=== PATIENT | female | born 1980 | race Caucasian/White ===

== ENCOUNTER 2021-10-06 14:22 | Emergency (ER) | payer MEDICAID, SELFPAY ==
[2021-10-06 14:39] VITALS: BP 132/84; PULSE 91; RESP 18; TEMP 36.8; O2SAT 95; BMI 30.7
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
--- NOTE | 2021-10-06 14:50 | CRLHL7_ITS ---
For Patients: As a result of the Century Cures Act, medical imaging exams and procedure reports are released immediately into your electronic medical record. You may view this report before your referring provider. If you have questions, please contact your health care provider. INDICATION: Right leg pain and swelling. TECHNIQUE: Ultrasound venous duplex lower right extremity. Compression venous exam was performed using leigh-scale, color Doppler, and spectral Doppler imaging. COMPARISON: No prior. FINDINGS: The right-sided peroneal veins were incompletely compressible without definitive blood flow on color evaluation suggesting DVT. The right common femoral, femoral, deep femoral, popliteal and posterior tibial veins are patent without thrombus. The contralateral left common femoral vein is patent without thrombus. IMPRESSION: Incompletely compressible right-sided peroneal veins without definitive blood flow compatible with DVT. Findings discussed with Dr. Alvarenga on 10/06/2021 at 16:12 hours. Dictated by Moise Alvarado MD @ 10/06/2021 4:11:29 PM Dictated by: Moise Alvarado MD @ 10/06/2021 16:12:39 (Electronically Signed)
--- NOTE | 2021-10-06 14:50 | CRLHL7_ITS ---
For Patients: As a result of the Cures Act, medical imaging exams and procedure reports are released immediately into your electronic medical record. You may view this report before your referring provider. If you have questions, please contact your health care provider. INDICATION: Draining wound. History of infection. COMPARISON: MRI 29 Jun 2021 and plain film 31 July 2020. TECHNIQUE: Three views right ankle. IMPRESSION: Undulating widened indistinct talonavicular ankle joint. Patchy lucent foci of resorption and sclerosis in the plafond and talar head. Talar head looks flattened and there is flattened flaring of the tibial plafond. 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 Circumferential periarticular moderately prominent soft tissue swelling. No soft tissue air. No acute fracture or new bone lesion. Dictated by Santosh Donaldson MD @ 10/06/2021 3:37:31 PM (Electronically Signed)
[2021-10-06 15:40] LABS: Chloride* 105 mmol/L (96-114); Potassium* 3.6 mmol/L (3.6-5.1); Sodium* 143 mmol/L (135-149)
[2021-10-06 15:43] LABS: Creatinine* 0.5 mg/dL (0.5-1.5); Est. Creatinine Clearance* 138.61; Estimated Glomerular Filt Rate 121 ml/min
[2021-10-06 15:44] LABS: Blood Urea Nitrogen* 7 mg/dL (5-24); Carbon Dioxide* 29 mmol/L (20-32); Glucose* 116 mg/dL (60-115)
[2021-10-06 15:46] LABS: C Reactive Protein* 1.7 mg/dL (0.5-1.0)
[2021-10-06 16:05] LABS: Erythrocyte SedimentationRate* 25 mm/hr (2-20)
[2021-10-06 17:04] VITALS: BP 132/84; PULSE 91; RESP 18; TEMP 36.8
[2021-10-06] MEDS: APIXABAN 5 MG TABLET 10 MG PO (17:06)
== END 2021-10-06 17:15 | disposition home or self-care (01) ==
PROVIDERS: Emergency Provider Family Medicine; PCP Physician Assistant Medical
DX: I82.4Z1 Acute embolism and thrombosis of unspecified deep veins of right distal lower extremity (principal)
CPT/HCPCS: 36415; 73610; 80048; 85651; 86140; 87040; 93971; 99284; A9270

== ENCOUNTER 2021-10-16 21:21 | Emergency (ER) | payer MEDICAID, SELFPAY ==
[2021-10-16 21:36] VITALS: BP 144/79; PULSE 91; RESP 18; TEMP 36.3; O2SAT 97; BMI 32.6
--- NOTE | 2021-10-16 22:39 | ED_ITS ---
HPI - General Adult General Time Seen by Provider: 22:20 Date Seen: 10/16/21 Chief complaint: Unspecified Complaint, Adult Stated complaint: POST-SURGERY POSSIBLE INFECTION - BLOOD CLOT PROBS Time Seen by Provider: 10/16/21 22:04 Source: patient, RN notes reviewed and old records reviewed Mode of arrival: ambulatory Limitations: no limitations History of Present Illness HPI narrative: 41-year-old female with history of right DVT as well as cellulitis the of the right leg comes in today with swelling of the right leg. Patient has a complicated history of septic arthritis in the right ankle and recent diagnosis of DVT, on Eliquis. Comes in today because of increased swelling of the right leg as well as redness. She denies chest pain, shortness of breath, fevers, chills, nausea, or vomiting. No new injury and says she has been taking her medications as prescribed. Pain is worse with walking and better if she elevates the leg. Related Data Home Medications Medication Instructions Recorded Confirmed acetaminophen 325 mg tablet 650 mg PO TID PRN 09/12/21 10/16/21 aspirin 81 mg tablet,delayed 162 mg PO QDAY 09/12/21 10/16/21 release (Adult Aspirin Regimen) buprenorphine HCl 8 mg sublingual 8 mg sublingual TID 09/12/21 10/16/21 tablet cholecalciferol (vitamin D3) 50 50 mcg PO QDAY 09/12/21 10/16/21 mcg (2,000 unit) tablet clindamycin phosphate 1 % lotion 1 applic topical BID 09/12/21 10/16/21 diclofenac sodium 1 % topical gel 2 g topical BID 09/12/21 10/08/21 (Arthritis Pain (diclofenac)) doxycycline hyclate 100 mg capsule 100 mg PO BID 09/12/21 10/08/21 fexofenadine 180 mg tablet 180 mg PO Q24H PRN 09/12/21 10/08/21 folic acid 1 mg tablet 1 mg PO QDAY 09/12/21 10/16/21 gabapentin 300 mg capsule 300 mg PO TID 09/12/21 10/08/21 hydroxyzine HCl 25 mg tablet 25 mg PO .HS 09/12/21 10/08/21 ibuprofen 200 mg tablet 200 mg PO Q6H PRN 09/12/21 10/08/21 lactulose 20 gram oral packet 20 g PO BID 09/12/21 10/08/21 levothyroxine 125 mcg capsule 125 mcg PO QDAY 09/12/21 10/16/21 methocarbamol 750 mg tablet 750 mg PO TID 09/12/21 10/16/21 miconazole nitrate 2 % topical 1 applic topical BID 09/12/21 10/16/21 powder nicotine 14 mg/24 hr daily 1 patch transdermal Q24H 09/12/21 10/16/21 transdermal patch sennosides 8.6 mg-docusate sodium 2 tab-cap PO BID PRN 09/12/21 10/16/21 50 mg tablet (Senna with Docusate Sodium) thiamine HCl (vitamin B1) 100 mg 100 mg PO QDAY 09/12/21 10/08/21 tablet venlafaxine 75 mg capsule,extended 75 mg PO QAM 09/12/21 10/16/21 release 24 hr Previous Rx's Medication Instructions Recorded apixaban 5 mg tablet (Eliquis) 5 mg PO BID #60 tabs 10/06/21 ondansetron 4 mg disintegrating 4 mg PO BID PRN nausea and 10/11/21 tablet vomiting #20 tabs Allergies Allergy/AdvReac Type Severity Reaction Status Date / Time No Known Allergies Allergy Verified 10/16/21 21:42 Review of Systems Status of ROS: Reports: 10 or more systems reviewed and unremarkable except as noted in History and below PFSH PFS Surgical History History of delivery History of gynecologic surgery History of thoracic surgery Status post hysterectomy Family History Other Depression Thyroid disease Social History Narrative: alcohol abuse cigarette smoker Smoking Status: Current every day smoker Non-prescribed substance use: denies use Exam Narrative: Exam Narrative: General: Well-developed and well-nourished, no acute distress Head: Atraumatic and normocephalic Eyes: Pupils are equal reactive, extraocular motions intact, conjunctiva clear ENT: External nose and ears are normal, posterior pharynx without erythema or exudate Neck: No midline cervical tenderness, full spontaneous range of motion the neck, trachea midline, no adenopathy Heart: Regular rate and rhythm no murmurs or thrills Lungs: Clear to auscultation bilaterally without wheezes or crackles Abdomen: Soft, nontender, nondistended with active bowel sounds Musculoskeletal: Right lower leg with swelling and erythema. Compartments are soft, no pain out of proportion or pain with active flexion or extension of the ankle. Incision on the right lateral hindfoot cleaned and dry, some adherent green discoloration but no odor or redness. Neurologic: Awake, alert, and oriented x3, no gross focal neurologic deficits, cranial nerves intact as tested Psych: Mood and affect are appropriate Skin: No rashes Const: Vital Signs, click to edit/add: Vital Signs - 24 hr 10/16/21 21:36 Temperature 97.4 F L Pulse Rate [Left P ulse Oximeter] 91 Respiratory Rate 18 Blood Pressure [Ri ght Upper Arm] 144/79 H Pulse Oximetry 97 Oxygen Delivery Me thod Room Air Course Course Hospital Course: Patient seen and examined, prior records are reviewed. Differential diagnosis includes but not limited to DVT, cellulitis, abscess, septic arthritis, compartment syndrome. Patient presents with pain and swelling of the right leg. On exam, no pain with passive movement of the ankle, diffuse redness and it edema of the right leg but compartments are soft. Dressing on the right is removed, no purulent drainage and only minimal swelling. There is limited greenish discoloration to the skin on the inferior edge of the wound but no odor purulent drainage. Labs are ordered along with right lower extremity ultrasound to evaluate for progression of known DVT. Reevaluation(s) Reevaluation #1: CBC demonstrates a pancytopenia, patient has had thrombocytopenia in the past. CRP is less than 0.5 which would be less consistent with infectious etiology. Note that in June when patient had an abscess her CRP was significantly elevated. Ultrasound is pending. If this is negative for shows stable DVT, patient can be discharged with continued outpatient follow-up. She is quite concerned about infection and so consider short course of oral antibiotic with MRSA coverage. Time: 23:57 Reevaluation #2: Patient wants to go home. She is not yet her ultrasound but does not want to stay for that. She is already on blood thinners, and no evidence for severe infection based on exam and labs today. Time: 23:57 Vital Signs Vital signs: Initial Vital Signs Temperature 97.4 F L 10/16/21 21:36 Temperature Source Temporal Artery Scan 10/16/21 21:36 Pulse Rate 91 10/16/21 21:36 Respiratory Rate 18 10/16/21 21:36 Blood Pressure 144/79 H 10/16/21 21:36 Blood Pressure Mean 100 10/16/21 21:36 Blood Pressure Position Sitting 10/16/21 21:36 Pulse Oximetry 97 10/16/21 21:36 Oxygen Delivery Method 10/16/21 21:36 Vital Signs Temperature 97.4 F L 10/16/21 21:36 Pulse Rate 91 10/16/21 21:36 Respiratory Rate 18 10/16/21 21:36 Blood Pressure 144/79 H 10/16/21 21:36 Pulse Oximetry 97 10/16/21 21:36 Oxygen Delivery Method 10/16/21 21:36 Temperature 97.4 F L 10/16/21 21:36 Pulse Rate 91 10/16/21 21:36 Respiratory Rate 18 10/16/21 21:36 Blood Pressure 144/79 H 10/16/21 21:36 Pulse Oximetry 97 10/16/21 21:36 Oxygen Delivery Method 10/16/21 21:36 Medical Decision Making Medical Records Medical records reviewed: Yes I reviewed the patient's medical records Lab Data Lab results reviewed: Yes I reviewed the patient's lab results Labs: Lab Results 10/16/21 10/16/21 Range/Units 23:15 23:15 WBC 2.97 L (4.50-11.00) K/uL RBC 3.88 L (4.00-5.20) m/uL Hgb 10.5 L (12.0-16.0) gm/dL Hct 33.0 (33.0-51.0) % MCV 85 (80-100) fL MCH 27 (26-34) pg MCHC 32 (32-36) gm/dL RDW Coeff of Gamal 15.4 (11.5-15.5) % Plt Count 47 L* (140-440) K/uL Neut % (Auto) 25.6 L (42.0-72.0) % Lymph % (Auto) 65.0 H (20-44) % [place] % (Auto) 7.1 (0.0-11.0) % Eos % (Auto) 2.0 (0.0-7.0) % Baso % (Auto) 0.3 (0.0-3.0) % Neut # (Auto) 0.80 L (1.7-7.0) K/uL Lymph # (Auto) 1.90 (0.90-2.90) K/uL [place] # (Auto) 0.20 (0.00-0.90) K/UL Eos # (Auto) 0.10 (0.00-0.50) K/uL Baso # (Auto) 0.00 (0.00-0.30) K/uL Abs Immat Gran (auto) 0.00 (0.00-0.30) K/uL Sodium 147 (135-149) mmol/L Potassium 3.8 (3.6-5.1) mmol/L Chloride 106 (96-114) mmol/L Carbon Dioxide 30 (20-32) mmol/L BUN 6 (5-24) mg/dL Creatinine 0.5 (0.5-1.5) mg/dL Estimated Creat Clear 138.61 Estimated GFR 121 ml/min Glucose 100 (60-115) mg/dL Calcium 8.6 (8.4-10.6) mg/dL C-Reactive Protein < 0.5 L (0.5-1.0) mg/dL Discharge Plan Discharge Clinical Impression: H/O deep venous thrombosis, Localized swelling of right lower leg, Anticoagulated by anticoagulation treatment Patient Disposition: Left Against Medical Advice Condition: Stable Instructions: Deep Vein Thrombosis (ED), Blood Thinners (ED) Additional Instructions: Elevate the leg as much as you are able. Continue dressing changes. Follow-up with your primary care doctor Orthopedic surgery this week. Continue your blood thinner. Activity Level: Activity as Tolerated Discharge Diet: Regular Prescriptions: No Action acetaminophen 325 mg tablet 650 mg PO TID PRN aspirin [Adult Aspirin Regimen] 81 mg tablet,delayed release (DR/EC) 162 mg PO QDAY Hold Instructions: Doctor's Order buprenorphine HCl 8 mg tablet, sublingual 8 mg sublingual TID cholecalciferol (vitamin D3) 50 mcg (2,000 unit) tablet 50 mcg PO QDAY clindamycin phosphate 1 % lotion 1 applic topical BID diclofenac sodium [Arthritis Pain (diclofenac)] 1 % gel 2 g topical BID Rx Instructions: apply to single elbow, wrist or hand; for hand includes palm/fingers/back of hand doxycycline hyclate 100 mg capsule 100 mg PO BID fexofenadine 180 mg tablet 180 mg PO Q24H PRN folic acid 1 mg tablet 1 mg PO QDAY gabapentin 300 mg capsule 300 mg PO TID hydroxyzine HCl 25 mg tablet 25 mg PO .HS ibuprofen 200 mg tablet 200 mg PO Q6H PRN lactulose 20 gram packet 20 g PO BID levothyroxine 125 mcg capsule 125 mcg PO QDAY methocarbamol 750 mg tablet 750 mg PO TID miconazole nitrate 2 % powder 1 applic topical BID nicotine 14 mg/24 hr patch 24 hour 1 patch transdermal Q24H sennosides-docusate sodium [Senna with Docusate Sodium] 8.6-50 mg tablet 2 tab-cap PO BID PRN thiamine HCl (vitamin B1) 100 mg tablet 100 mg PO QDAY venlafaxine 75 mg capsule,extended release 24hr 75 mg PO QAM Eliquis 5 mg tablet 5 mg PO BID Qty: 60 2RF Rx Instructions: Take 10mg twice daily for 7 days, then go to 5mg twice daily after that ondansetron 4 mg tablet,disintegrating 4 mg PO BID PRN (Reason: nausea and vomiting) Qty: 20 0RF Follow Up/Referrals: Yenifer Pickens PA-C [Primary Care Provider] - Stand Alone [facility] Inst[facility]
--- NOTE | 2021-10-16 22:42 | CRLHL7_ITS ---
For Patients: As a result of the Century Cures Act, medical imaging exams and procedure reports are released immediately into your electronic medical record. You may view this report before your referring provider. If you have questions, please contact your health care provider. INDICATION: Known right peroneal DVT diagnosed October 06, 2021, increased leg swelling. TECHNIQUE: Ultrasound venous duplex lower right extremity. Compression venous exam was performed using leigh-scale, color Doppler, and spectral Doppler imaging. COMPARISON: October 06, 2021. FINDINGS: Sonographic imaging demonstrates the right common femoral, deep femoral, superficial femoral, popliteal, posterior tibial and greater saphenous and the contralateral left common femoral veins to be fully compressible with normal color Doppler blood flow. There is suboptimal imaging of the peroneal veins due to lower extremity edema. Minimal flow is seen within the peroneal veins. IMPRESSION: Suboptimal imaging of the peroneal veins due to lower extremity edema. Minimal flow is seen within the peroneal veins, suggesting persistent DVT. Remainder of the right lower extremity veins are patent. Dictated by Juanis Sen MD @ 10/17/2021 12:50:09 AM (Electronically Signed)
[2021-10-16 23:23] LABS: Basophils Percent Auto 0.3 % (0.0-3.0); Hemoglobin* 10.5 gm/dL (12.0-16.0); Mean Corpuscular HGB Conc 32 gm/dL (32-36); Mean Corpuscular Hemoglobin 27 pg (26-34); Mean Corpuscular Volume 85 fL (80-100); Monocytes Percent Auto 7.1 % (0.0-11.0); Neutrophils Percent Auto 25.6 % (42.0-72.0); RDW Coefficient of Variation % 15.4 % (11.5-15.5); Red Blood Count 3.88 m/uL (4.00-5.20); White Blood Count* 2.97 K/uL (4.50-11.00)
[2021-10-16 23:26] LABS: Platelet Count* 47 K/uL (140-440); Slide Review Reflex No
--- NOTE | 2021-10-16 23:29 | ED.NURSE ---
Critical lab result: Platelets 47, handed to at 1622
[2021-10-16 23:34] LABS: Chloride* 106 mmol/L (96-114); Potassium* 3.8 mmol/L (3.6-5.1); Sodium* 147 mmol/L (135-149)
[2021-10-16 23:37] LABS: Creatinine* 0.5 mg/dL (0.5-1.5); Est. Creatinine Clearance* 138.61; Estimated Glomerular Filt Rate 121 ml/min
[2021-10-16 23:38] LABS: Blood Urea Nitrogen* 6 mg/dL (5-24); Calcium* 8.6 mg/dL (8.4-10.6); Carbon Dioxide* 30 mmol/L (20-32); Glucose* 100 mg/dL (60-115)
[2021-10-16 23:42] LABS: C Reactive Protein* < 0.5 mg/dL (0.5-1.0)
--- NOTE | 2021-10-17 00:34 | ED.NURSE ---
Patient came out of rum and stated she did not want to wait any longer as her mother and another of her children were in the car waiting. Explained that we needed to completed ultrasound and then wait for results to really know what is going on. She states she will follow up with regular doctor. Signed AMA.
--- NOTE | 2021-10-17 15:58 | ED.NURSE ---
Pt called stating that she left the ER without the results of of her US yesterday because I was waiting for over 5 hours, i could not wait anymore advised pt to to continue to elevate extremities, continue with blood thinners and follow up with primary per d/c packet. Pt sent to med rec to obtain US results.
== END 2021-10-17 00:40 | disposition left against medical advice (07) ==
PROVIDERS: Emergency Provider Family Medicine; PCP Physician Assistant Medical
DX: R22.41 Localized swelling, mass and lump, right lower limb (principal); Z79.01 Long term (current) use of anticoagulants; Z53.29 Procedure and treatment not carried out because of patient's decision for other reasons
CPT/HCPCS: 36415; 80048; 85025; 86140; 93971; 99284

== ENCOUNTER 2021-10-19 17:07 | Emergency (ER) | payer MEDICAID, SELFPAY ==
[2021-10-19 17:40] VITALS: BP 130/77; PULSE 88; RESP 14; TEMP 36.7; O2SAT 95; BMI 32.3
--- NOTE | 2021-10-19 20:49 | ED_ITS ---
HPI - General Adult General Time Seen by Provider: 20:49 Date Seen: 10/19/21 Chief complaint: Extremity Pain/Injury, Lower Stated complaint: Traveling Blood Clot Time Seen by Provider: 10/19/21 20:41 Source: patient Mode of arrival: ambulatory Limitations: no limitations History of Present Illness HPI narrative: 41-year-old female who concerns about her leg. Complex recent medical history as documented below. She comes in today with pain of the right distal lateral thigh in continued swelling of the right leg. She is concerned about migration of her previously diagnosed DVT. She continues anticoagulation. Pain in the distal thigh his worse with walking and better at rest but constant. She has not noticed increased swelling of the leg, no fever chills, no drainage from her ankle wound. Review of chart demonstrates the patient was admitted in June with infection of the right foot and ankle. She went to the OR June 30 and had says drained, further drainage and debridement on July 02 along with removal of calcaneal hardware. She then had another debridement done on July 04. She subsequently was transferred to the [facility] on July 06 for specialized foot and ankle care, and plastics referral due peroneal tendon exposure. Review of discharge summary from [facility] demonstrates the patient had further ankle debridement on July 07 and was found to have right ankle osteomyelitis but no septic arthritis. On long-term antibiotics but has been off those for a while. She did have a skin graft on August 15, 2021. Related Data Home Medications Medication Instructions Recorded Confirmed acetaminophen 325 mg tablet 650 mg PO TID PRN 09/12/21 10/16/21 aspirin 81 mg tablet,delayed 162 mg PO QDAY 09/12/21 10/16/21 release (Adult Aspirin Regimen) buprenorphine HCl 8 mg sublingual 8 mg sublingual TID 09/12/21 10/16/21 tablet cholecalciferol (vitamin D3) 50 50 mcg PO QDAY 09/12/21 10/16/21 mcg (2,000 unit) tablet clindamycin phosphate 1 % lotion 1 applic topical BID 09/12/21 10/16/21 diclofenac sodium 1 % topical gel 2 g topical BID 09/12/21 10/08/21 (Arthritis Pain (diclofenac)) doxycycline hyclate 100 mg capsule 100 mg PO BID 09/12/21 10/08/21 fexofenadine 180 mg tablet 180 mg PO Q24H PRN 09/12/21 10/08/21 folic acid 1 mg tablet 1 mg PO QDAY 09/12/21 10/16/21 gabapentin 300 mg capsule 300 mg PO TID 09/12/21 10/08/21 hydroxyzine HCl 25 mg tablet 25 mg PO .HS 09/12/21 10/08/21 ibuprofen 200 mg tablet 200 mg PO Q6H PRN 09/12/21 10/08/21 lactulose 20 gram oral packet 20 g PO BID 09/12/21 10/08/21 levothyroxine 125 mcg capsule 125 mcg PO QDAY 09/12/21 10/16/21 methocarbamol 750 mg tablet 750 mg PO TID 09/12/21 10/16/21 miconazole nitrate 2 % topical 1 applic topical BID 09/12/21 10/16/21 powder nicotine 14 mg/24 hr daily 1 patch transdermal Q24H 09/12/21 10/16/21 transdermal patch sennosides 8.6 mg-docusate sodium 2 tab-cap PO BID PRN 09/12/21 10/16/21 50 mg tablet (Senna with Docusate Sodium) thiamine HCl (vitamin B1) 100 mg 100 mg PO QDAY 09/12/21 10/08/21 tablet venlafaxine 75 mg capsule,extended 75 mg PO QAM 09/12/21 10/16/21 release 24 hr Previous Rx's Medication Instructions Recorded apixaban 5 mg tablet (Eliquis) 5 mg PO BID #60 tabs 10/06/21 ondansetron 4 mg disintegrating 4 mg PO BID PRN nausea and 10/11/21 tablet vomiting #20 tabs Allergies Allergy/AdvReac Type Severity Reaction Status Date / Time No Known Allergies Allergy Verified 10/16/21 21:42 Review of Systems Status of ROS: Reports: 10 or more systems reviewed and unremarkable except as noted in History and below PFSH PFS Surgical History History of delivery History of gynecologic surgery History of thoracic surgery Status post hysterectomy Family History Other Depression Thyroid disease Social History Narrative: alcohol abuse cigarette smoker Smoking Status: Current every day smoker What tobacco products do you use: cigarettes Non-prescribed substance use: denies use Non-prescribed substance use details: 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 Exam Narrative: Exam Narrative: General: Well-developed and well-nourished, no acute distress Head: Atraumatic and normocephalic Eyes: Pupils are equal reactive, extraocular motions intact, conjunctiva clear ENT: External nose and ears are normal, posterior pharynx without erythema or exudate Neck: No midline cervical tenderness, full spontaneous range of motion the neck, trachea midline, no adenopathy Heart: Regular rate and rhythm no murmurs or thrills Lungs: Clear to auscultation bilaterally without wheezes or crackles Abdomen: Soft, nontender, nondistended with active bowel sounds Musculoskeletal: Firm edema of the right lower leg, no pain with passive flexion or extension of the ankle, distal pulses and sensation are intact. Tenderness of the right lower leg along the IT band with no overlying bruising or erythema. No knee effusion or pain with knee flexion extension. Redness, tenderness, of the medial thigh along the course of the great vessels. Right lateral ankle good granulation, discoloration inferiorly similar read to when I saw the patient at likely due to staining from the iodoform gauze that she has on the wound. Neurologic: Awake, alert, and oriented x3, no gross focal neurologic deficits, cranial nerves intact as tested Psych: Mood and affect are appropriate Skin: No rashes Const: Vital Signs, click to edit/add: Vital Signs - 24 hr 10/19/21 17:40 Temperature 98.1 F Pulse Rate [Pulse Oximeter] 88 Respiratory Rate 14 Blood Pressure [Ri ght Upper Arm] 130/77 Pulse Oximetry 95 Oxygen Delivery Me thod Room Air Course Course Hospital Course: Patient seen and examined, prior records are reviewed. Differential diagnosis includes but not limited to strain, sprain, DVT SVT, cellulitis, compartment syndrome I infection. Patient with cough goal history including multiple debridements of the right ankle and foot as well as skin graft to the right ankle and more recent diagnosis of DVT. She is concerned about some pain in the right lateral distal thigh. On further interview, she says she was feeling pretty good 2 days ago and walked a lot started having pain then. Tenderness along the ITB band sore musculoskeletal pain. Bedside ultrasound performed. The vessels of the thigh are compressible and with flow. Muscles of the calf are compressible to the mid calf to which stool is not compressible still has small amount of flow. There is extensive soft tissue edema on ultrasound and on exam. Dorsalis pedis and posterior tibialis pulses are intact, no pain with passive movement, sensation intact, compartment syndrome clinically unlikely. Current medications. Consider compression stocking for her right leg edema. Vital Signs Vital signs: Initial Vital Signs Temperature 98.1 F 10/19/21 17:40 Temperature Source Temporal Artery Scan 10/19/21 17:40 Pulse Rate 88 10/19/21 17:40 Pulse Rhythm 10/19/21 17:40 Respiratory Rate 14 10/19/21 17:40 Blood Pressure 130/77 10/19/21 17:40 Blood Pressure Mean 94 10/19/21 17:40 Blood Pressure Position Sitting 10/19/21 17:40 Pulse Oximetry 95 10/19/21 17:40 Oxygen Delivery Method 10/19/21 17:40 Vital Signs Temperature 98.1 F 10/19/21 17:40 Pulse Rate 88 10/19/21 17:40 Respiratory Rate 14 10/19/21 17:40 Blood Pressure 130/77 10/19/21 17:40 Pulse Oximetry 95 10/19/21 17:40 Oxygen Delivery Method 10/19/21 17:40 Temperature 98.1 F 10/19/21 17:40 Pulse Rate 88 10/19/21 17:40 Respiratory Rate 14 10/19/21 17:40 Blood Pressure 130/77 10/19/21 17:40 Pulse Oximetry 95 10/19/21 17:40 Oxygen Delivery Method 10/19/21 17:40 Medical Decision Making Medical Records Medical records reviewed: Yes I reviewed the patient's medical records Lab Data Lab results reviewed: Yes I reviewed the patient's lab results Discharge Plan Discharge Prescriptions: No Action acetaminophen 325 mg tablet 650 mg PO TID PRN aspirin [Adult Aspirin Regimen] 81 mg tablet,delayed release (DR/EC) 162 mg PO QDAY Hold Instructions: Doctor's Order buprenorphine HCl 8 mg tablet, sublingual 8 mg sublingual TID cholecalciferol (vitamin D3) 50 mcg (2,000 unit) tablet 50 mcg PO QDAY clindamycin phosphate 1 % lotion 1 applic topical BID diclofenac sodium [Arthritis Pain (diclofenac)] 1 % gel 2 g topical BID Rx Instructions: apply to single elbow, wrist or hand; for hand includes palm/fingers/back of hand doxycycline hyclate 100 mg capsule 100 mg PO BID fexofenadine 180 mg tablet 180 mg PO Q24H PRN folic acid 1 mg tablet 1 mg PO QDAY gabapentin 300 mg capsule 300 mg PO TID hydroxyzine HCl 25 mg tablet 25 mg PO .HS ibuprofen 200 mg tablet 200 mg PO Q6H PRN lactulose 20 gram packet 20 g PO BID levothyroxine 125 mcg capsule 125 mcg PO QDAY methocarbamol 750 mg tablet 750 mg PO TID miconazole nitrate 2 % powder 1 applic topical BID nicotine 14 mg/24 hr patch 24 hour 1 patch transdermal Q24H sennosides-docusate sodium [Senna with Docusate Sodium] 8.6-50 mg tablet 2 tab-cap PO BID PRN thiamine HCl (vitamin B1) 100 mg tablet 100 mg PO QDAY venlafaxine 75 mg capsule,extended release 24hr 75 mg PO QAM Eliquis 5 mg tablet 5 mg PO BID Qty: 60 2RF Rx Instructions: Take 10mg twice daily for 7 days, then go to 5mg twice daily after that ondansetron 4 mg tablet,disintegrating 4 mg PO BID PRN (Reason: nausea and vomiting) Qty: 20 0RF Follow Up/Referrals: Yenifer Pickens PA-C [Primary Care Provider] -
[2021-10-19 22:05] VITALS: BP 135/72; PULSE 76; RESP 18; O2SAT 96
== END 2021-10-19 22:24 | disposition home or self-care (01) ==
LOC: ED 21:45
PROVIDERS: Emergency Provider Family Medicine; PCP Physician Assistant Medical
DX: R60.0 Localized edema (principal)
CPT/HCPCS: 99283; 99284

== ENCOUNTER 2021-11-09 21:26 | Emergency (ER) | payer MEDICAID, SELFPAY ==
[2021-11-09 21:35] VITALS: BP 125/66; PULSE 97; RESP 16; TEMP 36.1; O2SAT 100
--- NOTE | 2021-11-09 22:16 | ED.WEAKNESS ---
HPI - Weakness General Chief complaint: Weakness Stated complaint: Weakness Time Seen by Provider: 11/09/21 21:48 History of Present Illness HPI Narrative: 41-year-old woman presenting with her mom to the emergency department with complaint of weakness. Has been through quite a bit the last number of months. Had an infection in the right foot and subsequent DVT. Required multiple surgeries. Sepsis was in the mix as well. Continues to take Eliquis. Initially is telling me that her right leg has been tense over the last week although mom acknowledges this this is been during and since diagnosis of DVT for least a month. Has not had any fever. Weakness more over the last 3 days. She just feeling too weak today to change her dressing on her foot. There is since she has been ill she feels like when she gets up her arms are particularly weak and tired. Does have a history of rather significant alcoholism. Reports a pt of vodka today. Earlier in the week a 750 mL bottle daily. Has continued to drink outside of hospitalizations. Has numerous detox placements. Apparently primary care is assisting her in ?tapering down ?. This includes Vistaril and a couple other unspecified medications. I do see buprenorphine on medication list, chlordiazepoxide, hydroxyzine, gabapentin. She is not feeling nauseated although she says that when she comes down would start to be nauseated. She has not been vomiting. Has no abdominal pain. Does not describe any cough or cold symptoms. She notes how this morning her heart was really racing and she drink to settle that down. She tells me how she was hearing it in her ears. She has been having soreness in her throat sometimes will feel in her ears. She notes a history of cardiomyopathy. Denies hematemesis. Denies melena. Has had a little bit of blood upon wiping after hard stool last week. Incidentally notes anxiety and nausea with alcohol withdrawals. No history of seizures/No DTs/hallucinations. The following extracted from recent documentation [facility] Active Problems Acute deep vein thrombosis (DVT) of right lower extremity (Acute) I82.401 Alcohol abuse (Acute) F10.10 Hypothyroidism (Acute) E03.9 Depression with anxiety (Acute) F41.8 Opioid dependence (Acute) F11.20 Periodontal disease (Acute) K05.6 Hepatitis C (Acute) B19.20 diagnosed at [facility]- was seen by GI but has not started treatment Abscess of ankle (Acute) L02.419 deep abcess ankle, right MRSA (methicillin resistant Staphylococcus aureus) (Acute) A49.02 08/28/09 right axilla & chest Surgical History History of delivery History of gynecologic surgery History of thoracic surgery Status post hysterectomy Recent surgical past medical Review of chart demonstrates the patient was admitted in June with infection of the right foot and ankle.? She went to the OR June 30 and had says drained, further drainage and debridement on July 02 along with removal of calcaneal hardware.? She then had another debridement done on July 04.? She subsequently was transferred to the [facility] on July 06 for specialized foot and ankle care, and plastics referral due peroneal tendon exposure.? Review of discharge summary from [facility] demonstrates the patient had further ankle debridement on July 07 and was found to have right ankle osteomyelitis but no septic arthritis.? On long-term antibiotics but has been off those for a while.? She did have a skin graft on August 15, 2021. Related Data Home Medications Medication Instructions Recorded Confirmed acetaminophen 325 mg tablet 650 mg PO TID PRN 09/12/21 10/16/21 aspirin 81 mg tablet,delayed 162 mg PO QDAY 09/12/21 10/16/21 release (Adult Aspirin Regimen) buprenorphine HCl 8 mg sublingual 8 mg sublingual TID 09/12/21 10/16/21 tablet cholecalciferol (vitamin D3) 50 50 mcg PO QDAY 09/12/21 10/16/21 mcg (2,000 unit) tablet clindamycin phosphate 1 % lotion 1 applic topical BID 09/12/21 10/16/21 diclofenac sodium 1 % topical gel 2 g topical BID 09/12/21 10/08/21 (Arthritis Pain (diclofenac)) fexofenadine 180 mg tablet 180 mg PO Q24H PRN 09/12/21 10/08/21 folic acid 1 mg tablet 1 mg PO QDAY 09/12/21 10/16/21 gabapentin 300 mg capsule 300 mg PO TID 09/12/21 10/08/21 hydroxyzine HCl 25 mg tablet 25 mg PO .HS 09/12/21 10/08/21 ibuprofen 200 mg tablet 200 mg PO Q6H PRN 09/12/21 10/08/21 lactulose 20 gram oral packet 20 g PO BID 09/12/21 10/08/21 levothyroxine 125 mcg capsule 125 mcg PO QDAY 09/12/21 10/16/21 methocarbamol 750 mg tablet 750 mg PO TID 09/12/21 10/16/21 miconazole nitrate 2 % topical 1 applic topical BID 09/12/21 10/16/21 powder nicotine 14 mg/24 hr daily 1 patch transdermal Q24H 09/12/21 10/16/21 transdermal patch sennosides 8.6 mg-docusate sodium 2 tab-cap PO BID PRN 09/12/21 10/16/21 50 mg tablet (Senna with Docusate Sodium) thiamine HCl (vitamin B1) 100 mg 100 mg PO QDAY 09/12/21 10/08/21 tablet venlafaxine 75 mg capsule,extended 75 mg PO QAM 09/12/21 10/16/21 release 24 hr Previous Rx's Medication Instructions Recorded apixaban 5 mg tablet (Eliquis) 5 mg PO BID #60 tabs 10/06/21 acetaminophen 650 mg 1,300 mg PO Q8H PRN fever or pain 11/01/21 tablet,extended release (Pain #100 tabs Relief (acetaminophen)) chlordiazepoxide HCl 25 mg capsule 25 mg PO ONCE #13 caps 11/01/21 clomipramine 25 mg capsule 25 mg PO ONCE 14 days #14 caps 11/01/21 mupirocin 2 % topical ointment 1 applic topical BID PRN scabs #22 11/01/21 grams ondansetron 4 mg disintegrating 4 mg PO BID PRN nausea and 11/01/21 tablet vomiting #20 tabs Allergies Allergy/AdvReac Type Severity Reaction Status Date / Time No Known Allergies Allergy Verified 11/01/21 18:14 Review of Systems Status of ROS: Reports: 6 or more systems reviewed and unremarkable except as noted in History and below PFSH PFS Surgical History History of delivery History of gynecologic surgery History of thoracic surgery Status post hysterectomy Family History Other Depression Thyroid disease Social History Narrative: alcohol abuse cigarette smoker Smoking Status: Current some day smoker What tobacco products do you use: cigarettes Do you use any of these nicotine containing products: None Second hand tobacco smoke exposure: No How often do you have a drink containing alcohol: 2-3 times a week AUDIT-C Alcohol total score: 3 Non-prescribed substance use: denies use Non-prescribed substance use details: Clean since 2009: heroin service: No Exam Narrative: Exam Narrative: Fully oriented. Very tired. Seems to have some cognitive difficulties as if encephalopathic. Bordering on tremulous. Cranial nerves 2-12 are intact. Moving all extremities without difficulty. Excoriations over face consistent with picking. Picking on back as well. Generally skin looks pale. Oropharynx partially edentulous, dentition decay. She is embarrassed and apologize for the state of her mouth. No swelling or erythema appreciated. No cervical lymphadenopathy. Lungs are clear. Breathing easily. Cardiovascular with elevated pulse, regular rate and rhythm. Distant Abdomen is soft and nontender. Small areas of yellowish bruising scattered over her abdomen. No telangiectasias Right lower extremity has some tattoos. No inflammatory changes. Rather tense compared to the left. Appears well perfused peripherally though. She is wearing a Cam walker that I removed to assess as above. Lateral heel area has a healing wound. [place]. I do not see significant rubor. There is no calor. No purulence. Stephani was worried about odor; I do not appreciate that. There is a little greenish staining on bandage. This looks to have been noted on prior evaluations. Const: Vital Signs, click to edit/add: Vital Signs - 24 hr 11/09/21 21:35 11/10/21 01:26 11/10/21 01:45 Temperature 97.0 F L 98.1 F 97.1 F L Pulse Rate 91 Pulse Rate [Left P ulse Oximeter] 97 Respiratory Rate 16 18 16 Blood Pressure 123/63 93/59 L Blood Pressure [Ri ght Upper Arm] 125/66 Pulse Oximetry 100 Oxygen Delivery Me thod Room Air 11/10/21 01:57 11/10/21 02:30 11/10/21 02:05 Temperature 98.0 F 98.0 F Pulse Rate Pulse Rate [Left P ulse Oximeter] Respiratory Rate 16 Blood Pressure 105/54 L 96/50 L Blood Pressure [Ri ght Upper Arm] Pulse Oximetry Oxygen Delivery Me thod 11/10/21 01:15 11/10/21 01:16 11/10/21 01:17 Temperature Pulse Rate 88 91 90 Pulse Rate [Left P ulse Oximeter] Respiratory Rate Blood Pressure 119/72 123/63 Blood Pressure [Ri ght Upper Arm] Pulse Oximetry 93 93 97 Oxygen Delivery Me thod 11/10/21 01:30 11/10/21 01:32 11/10/21 01:45 Temperature Pulse Rate 91 92 95 Pulse Rate [Left P ulse Oximeter] Respiratory Rate Blood Pressure 117/61 Blood Pressure [Ri ght Upper Arm] Pulse Oximetry 98 98 96 Oxygen Delivery Me od 11/10/21 01:46 11/10/21 01:48 11/10/21 01:56 Temperature Pulse Rate 91 90 92 Pulse Rate [Left P ulse Oximeter] Respiratory Rate Blood Pressure 93/59 L 105/54 L Blood Pressure [Ri ght Upper Arm] Pulse Oximetry 95 98 95 Oxygen Delivery Me thod 11/10/21 02:00 11/10/21 02:02 11/10/21 02:03 Temperature Pulse Rate 89 89 93 Pulse Rate [Left P ulse Oximeter] Respiratory Rate Blood Pressure 105/57 L Blood Pressure [Ri ght Upper Arm] Pulse Oximetry 87 L 89 93 Oxygen Delivery Me thod 11/10/21 02:15 11/10/21 02:17 11/10/21 02:30 Temperature Pulse Rate 91 89 93 Pulse Rate [Left P ulse Oximeter] Respiratory Rate Blood Pressure 100/57 L Blood Pressure [Ri ght Upper Arm] Pulse Oximetry 92 95 93 Oxygen Delivery Me thod 11/10/21 02:31 11/10/21 04:02 11/10/21 04:16 Temperature 98.0 F 98.0 F Pulse Rate 91 85 Pulse Rate [Left P ulse Oximeter] 88 Respiratory Rate 16 16 Blood Pressure 96/50 L 97/54 L Blood Pressure [Ri ght Upper Arm] 101/53 L Pulse Oximetry 89 93 [facility] 11/10/21 04:30 Temperature 98.0 F Pulse Rate 97 Pulse Rate [Left P ulse Oximeter] Respiratory Rate 16 Blood Pressure 117/79 Blood Pressure [Ri ght Upper Arm] Pulse Oximetry 94 Oxygen Delivery Me thod Documenting provider has reviewed patient's vital signs: yes Course Course Hospital Course: Will screen labs looking for red flags. We are providing with IV hydration. Reevaluation(s) Reevaluation #1: As discuss findings here today becomes more anxious but Mom able to help calm Ms. King down Vital Signs Vital signs: Initial Vital Signs Temperature 97.0 F L 11/09/21 21:35 Temperature Source Temporal Artery Scan 11/09/21 21:35 Pulse Rate 97 11/09/21 21:35 Pulse Rhythm 11/09/21 21:35 Respiratory Rate 16 11/09/21 21:35 Blood Pressure 125/66 11/09/21 21:35 Blood Pressure Mean 85 11/09/21 21:35 Pulse Oximetry 100 11/09/21 21:35 Oxygen Delivery Method 11/09/21 21:35 Vital Signs Temperature 97.0 F L 11/09/21 21:35 Pulse Rate 97 11/09/21 21:35 Respiratory Rate 16 11/09/21 21:35 Blood Pressure 125/66 11/09/21 21:35 Pulse Oximetry 100 11/09/21 21:35 Oxygen Delivery Method 11/09/21 21:35 Temperature 98.0 F 11/10/21 04:30 Pulse Rate 86 11/10/21 05:32 Respiratory Rate 16 11/10/21 04:30 Blood Pressure 103/57 L 11/10/21 05:32 Pulse Oximetry 90 11/10/21 05:32 Oxygen Delivery Method 11/10/21 04:16 MDM - Weakness MDM Narrative Medical decision making narrative: Was known to be thrombocytopenic at 47,000 a little less than a month ago. Today 43,000. Hemoglobin has drifted from 10.5 to 5.7 today over the same time period. Have ordered for 2 units of packed red cells. I did discuss admission with our hospitalist but unfortunately over the weekend is challenged to obtain endoscopies which it would appear that Ms. King would need more urgently. Recommendations are to try to find care elsewhere if possible where this could be done. Blood pressures have softened during time here. Another IV has been placed. Has received another L of normal saline. Blood pressures have stabilized a little over 100/50-60 Have exhausted options for placement and finally reach [facility] in [facility]. Speak with Dr. Raymond who is thankfully accepting through the Emergency Department. Have dosed with Protonix. Able to collect stool sample for stool guaiac. No evidence of bleed on this exam/collection. Hard stool was medium brown clearly guaiac positive. Medical Records Attestation: I reviewed the patient's medical records. Lab Data Attestation: I reviewed the patient's lab results. Labs: Lab Results 11/09/21 11/09/21 11/09/21 Range/Units 22:05 22:05 22:45 WBC 2.32 L (4.50-11.00) K/uL RBC 2.18 L (4.00-5.20) m/uL Hgb 5.7 L* (12.0-16.0) gm/dL Hct 18.4 L (33.0-51.0) % MCV 84 (80-100) fL MCH 26 (26-34) pg MCHC 31 L (32-36) gm/dL RDW Coeff of Gamal 16.0 H (11.5-15.5) % Plt Count 43 L* (140-440) K/uL Neut % (Auto) 32.8 L (42.0-72.0) % Lymph % (Auto) 58.2 H (20-44) % [place] % (Auto) 7.3 (0.0-11.0) % Eos % (Auto) 1.3 (0.0-7.0) % Baso % (Auto) 0.4 (0.0-3.0) % Neut # (Auto) 0.80 L (1.7-7.0) K/uL Lymph # (Auto) 1.40 (0.90-2.90) K/uL [place] # (Auto) 0.20 (0.00-0.90) K/UL Eos # (Auto) 0.00 (0.00-0.50) K/uL Baso # (Auto) 0.00 (0.00-0.30) K/uL Abs Immat Gran (auto) 0.00 (0.00-0.30) K/uL INR (0.91-1.10) APTT (23-33) Seconds Sodium (135-149) mmol/L Potassium (3.6-5.1) mmol/L Chloride (96-114) mmol/L Carbon Dioxide (20-32) mmol/L BUN (5-24) mg/dL Creatinine (0.5-1.5) mg/dL Estimated GFR ml/min Glucose (60-115) mg/dL Calcium (8.4-10.6) mg/dL Magnesium (1.5-2.6) mg/dL Total Bilirubin (0.1-1.5) mg/dL Direct Bilirubin (0.0-0.5) mg/dL AST (12-35) U/L ALT (4-35) U/L Alkaline Phosphatase (40-150) U/L C-Reactive Protein (0.5-1.0) mg/dL Total Protein (6.0-8.3) g/dL Albumin (3.3-5.0) g/dL Urine Color (Yellow) Urine Appearance (Clear) Urine pH (5.0-8.5) Ur Specific [place] (1.000-1.030) Urine Protein (Negative) Urine Glucose (UA) (Negative) Urine Ketones (Negative) Urine Blood (Negative) Urine Nitrite (Negative) Urine Bilirubin (Negative) Urine Urobilinogen (0.2-1.0) Ur Leukocyte Esterase (Negative) Urine RBC (0-2) Urine WBC (0-5) Ur Squamous Epith Cells (None-Few) Urine Bacteria (None) Urine Opiates Screen (Negative) Ur Oxycodone Screen (Negative) Urine Methadone Screen (Negative) Ur Propoxyphene Screen (Negative) Ur Barbiturates Screen (Negative) U Tricyclic Antidepress (Negative) Ur Phencyclidine Scrn (Negative) Ur Amphetamines Screen (Negative) U Methamphetamines Scrn (Negative) U Benzodiazepines Scrn (Negative) Urine Cocaine Screen (Negative) U Marijuana (THC) Screen (Negative) Ur Drug Screen Comment Ethyl Alcohol (0.01-0.03) % SARS-CoV-2 (PCR) Negative SARS-CoV-2 (Negative) Influenza Type A (PCR) Negative PCR FLU A (Negative) Influenza Type B (PCR) Negative PCR FLU B (Negative) Group A Strep DNA NOT DETECTED (No Detected) Blood Type Antibody Screen Crossmatch (AHG) 11/09/21 11/09/21 11/10/21 Range/Units 22:45 23:30 00:10 WBC (4.50-11.00) K/uL RBC (4.00-5.20) m/uL Hgb (12.0-16.0) gm/dL Hct (33.0-51.0) % MCV (80-100) fL MCH (26-34) pg MCHC (32-36) gm/dL RDW Coeff of Gamal (11.5-15.5) % Plt Count (140-440) K/uL Neut % (Auto) (42.0-72.0) % Lymph % (Auto) (20-44) % [place] % (Auto) (0.0-11.0) % Eos % (Auto) (0.0-7.0) % Baso % (Auto) (0.0-3.0) % Neut # (Auto) (1.7-7.0) K/uL Lymph # (Auto) (0.90-2.90) K/uL [place] # (Auto) (0.00-0.90) K/UL Eos # (Auto) (0.00-0.50) K/uL Baso # (Auto) (0.00-0.30) K/uL Abs Immat Gran (auto) (0.00-0.30) K/uL INR (0.91-1.10) APTT (23-33) Seconds Sodium 143 (135-149) mmol/L Potassium 3.2 L (3.6-5.1) mmol/L Chloride 104 (96-114) mmol/L Carbon Dioxide 28 (20-32) mmol/L BUN 9 (5-24) mg/dL Creatinine 0.4 L (0.5-1.5) mg/dL Estimated GFR 127 ml/min Glucose 113 (60-115) mg/dL Calcium 8.3 L (8.4-10.6) mg/dL Magnesium 1.8 (1.5-2.6) mg/dL Total Bilirubin 0.9 (0.1-1.5) mg/dL Direct Bilirubin 0.3 (0.0-0.5) mg/dL AST 110 H (12-35) U/L ALT 40 H (4-35) U/L Alkaline Phosphatase 136 (40-150) U/L C-Reactive Protein 0.5 (0.5-1.0) mg/dL Total Protein 7.5 (6.0-8.3) g/dL Albumin 3.8 (3.3-5.0) g/dL Urine Color Yellow (Yellow) Urine Appearance Clear (Clear) Urine pH 7.5 (5.0-8.5) Ur Specific [place] 1.010 (1.000-1.030) Urine Protein Negative (Negative) Urine Glucose (UA) Negative (Negative) Urine Ketones Negative (Negative) Urine Blood Negative (Negative) Urine Nitrite Negative (Negative) Urine Bilirubin Negative (Negative) Urine Urobilinogen 1.0 (0.2-1.0) Ur Leukocyte Esterase Negative (Negative) Urine RBC 2-5 A (0-2) Urine WBC 0-2 (0-5) Ur Squamous Epith Cells None (None-Few) Urine Bacteria None (None) Urine Opiates Screen (Negative) Ur Oxycodone Screen (Negative) Urine Methadone Screen (Negative) Ur Propoxyphene Screen (Negative) Ur Barbiturates Screen (Negative) U Tricyclic Antidepress (Negative) Ur Phencyclidine Scrn (Negative) Ur Amphetamines Screen (Negative) U Methamphetamines Scrn (Negative) U Benzodiazepines Scrn (Negative) Urine Cocaine Screen (Negative) U Marijuana (THC) Screen (Negative) Ur Drug Screen Comment Ethyl Alcohol 0.39 H* (0.01-0.03) % SARS-CoV-2 (PCR) (Negative) Influenza Type A (PCR) (Negative) Influenza Type B (PCR) (Negative) Group A Strep DNA (No Detected) Blood Type B Positive Antibody Screen NEGATIVE Crossmatch (AHG) See Detail 11/10/21 11/10/21 Range/Units 00:10 23:30 WBC (4.50-11.00) K/uL RBC (4.00-5.20) m/uL Hgb (12.0-16.0) gm/dL Hct (33.0-51.0) % MCV (80-100) fL MCH (26-34) pg MCHC (32-36) gm/dL RDW Coeff of Gamal (11.5-15.5) % Plt Count (140-440) K/uL Neut % (Auto) (42.0-72.0) % Lymph % (Auto) (20-44) % [place] % (Auto) (0.0-11.0) % Eos % (Auto) (0.0-7.0) % Baso % (Auto) (0.0-3.0) % Neut # (Auto) (1.7-7.0) K/uL Lymph # (Auto) (0.90-2.90) K/uL [place] # (Auto) (0.00-0.90) K/UL Eos # (Auto) (0.00-0.50) K/uL Baso # (Auto) (0.00-0.30) K/uL Abs Immat Gran (auto) (0.00-0.30) K/uL INR 1.64 H (0.91-1.10) APTT 40 H (23-33) Seconds Sodium (135-149) mmol/L Potassium (3.6-5.1) mmol/L Chloride (96-114) mmol/L Carbon Dioxide (20-32) mmol/L BUN (5-24) mg/dL Creatinine (0.5-1.5) mg/dL Estimated GFR ml/min Glucose (60-115) mg/dL Calcium (8.4-10.6) mg/dL Magnesium (1.5-2.6) mg/dL Total Bilirubin (0.1-1.5) mg/dL Direct Bilirubin (0.0-0.5) mg/dL AST (12-35) U/L ALT (4-35) U/L Alkaline Phosphatase (40-150) U/L C-Reactive Protein (0.5-1.0) mg/dL Total Protein (6.0-8.3) g/dL Albumin (3.3-5.0) g/dL Urine Color (Yellow) Urine Appearance (Clear) Urine pH (5.0-8.5) Ur Specific [place] (1.000-1.030) Urine Protein (Negative) Urine Glucose (UA) (Negative) Urine Ketones (Negative) Urine Blood (Negative) Urine Nitrite (Negative) Urine Bilirubin (Negative) Urine Urobilinogen (0.2-1.0) Ur Leukocyte Esterase (Negative) Urine RBC (0-2) Urine WBC (0-5) Ur Squamous Epith Cells (None-Few) Urine Bacteria (None) Urine Opiates Screen POSITIVE A* (Negative) Ur Oxycodone Screen Negative (Negative) Urine Methadone Screen Negative (Negative) Ur Propoxyphene Screen Negative (Negative) Ur Barbiturates Screen Negative (Negative) U Tricyclic Antidepress Negative (Negative) Ur Phencyclidine Scrn Negative (Negative) Ur Amphetamines Screen Negative (Negative) U Methamphetamines Scrn Negative (Negative) U Benzodiazepines Scrn Negative (Negative) Urine Cocaine Screen Negative (Negative) U Marijuana (THC) Screen Negative (Negative) Ur Drug Screen Comment See Note Ethyl Alcohol (0.01-0.03) % SARS-CoV-2 (PCR) (Negative) Influenza Type A (PCR) (Negative) Influenza Type B (PCR) (Negative) Group A Strep DNA (No Detected) Blood Type Antibody Screen Crossmatch (AHG) Critical Care Time Critical Care Time Critical Care Time: Yes Attestation: The patient required my highest level preparedness to intervene emergently and I personally spent this critical care time directly and personally managing the patient. This critical care time included: Obtaining a history; Examining the patient; Pulse oximetry; Ordering and reviewing of studies; Arranging urgent treatment with development of a management plan; Evaluation of patients response to treatment; Frequent reassessment discussions with other providers. This critical care time was performed to assess and manage the high probability of imminent life-threatening deterioration that could result in multiorgan failure. It was exclusive of separate billable procedures and treating other patients and teaching time. Total Critical Care Time in Minutes: 60 Discharge Plan Discharge Clinical Impression: GI bleed, Alcoholism, Anemia, Anxiety, Thrombocytopenia Patient Disposition: Xfer Other Condition: Stable Prescriptions: No Action acetaminophen 325 mg tablet 650 mg PO TID PRN aspirin [Adult Aspirin Regimen] 81 mg tablet,delayed release (DR/EC) 162 mg PO QDAY Hold Instructions: Doctor's Order buprenorphine HCl 8 mg tablet, sublingual 8 mg sublingual TID cholecalciferol (vitamin D3) 50 mcg (2,000 unit) tablet 50 mcg PO QDAY clindamycin phosphate 1 % lotion 1 applic topical BID diclofenac sodium [Arthritis Pain (diclofenac)] 1 % gel 2 g topical BID Rx Instructions: apply to single elbow, wrist or hand; for hand includes palm/fingers/back of hand fexofenadine 180 mg tablet 180 mg PO Q24H PRN folic acid 1 mg tablet 1 mg PO QDAY gabapentin 300 mg capsule 300 mg PO TID hydroxyzine HCl 25 mg tablet 25 mg PO .HS ibuprofen 200 mg tablet 200 mg PO Q6H PRN lactulose 20 gram packet 20 g PO BID levothyroxine 125 mcg capsule 125 mcg PO QDAY methocarbamol 750 mg tablet 750 mg PO TID miconazole nitrate 2 % powder 1 applic topical BID nicotine 14 mg/24 hr patch 24 hour 1 patch transdermal Q24H sennosides-docusate sodium [Senna with Docusate Sodium] 8.6-50 mg tablet 2 tab-cap PO BID PRN thiamine HCl (vitamin B1) 100 mg tablet 100 mg PO QDAY venlafaxine 75 mg capsule,extended release 24hr 75 mg PO QAM clomipramine 25 mg capsule 25 mg PO ONCE 14 Days Qty: 14 8RF mupirocin 2 % ointment 1 applic topical BID PRN (Reason: scabs) Qty: 22 1RF acetaminophen [Pain Relief (acetaminophen)] 650 mg tablet extended release 1,300 mg PO Q8H PRN (Reason: fever or pain) Qty: 100 2RF chlordiazepoxide HCl 25 mg capsule 25 mg PO ONCE Qty: 13 0RF Rx Instructions: Day 1: 2 pills every 8 hours, Day 2: 2 pills every 12 hours; Day 3: 1 pill every 12 hours; Day 4: 1 pill once daily; stop ondansetron 4 mg tablet,disintegrating 4 mg PO BID PRN (Reason: nausea and vomiting) Qty: 20 0RF Eliquis 5 mg tablet 5 mg PO BID Qty: 60 2RF Rx Instructions: Take 10mg twice daily for 7 days, then go to 5mg twice daily after that Stand Alone Forms: [employer] Info Instructions
[2021-11-09 22:37] LABS: Strep A DNA Probe* NOT DETECTED (No Detected)
[2021-11-09 22:51] LABS: PCR FLU A Negative PCR FLU A (Negative); PCR FLU B Negative PCR FLU B (Negative)
[2021-11-09 22:55] LABS: Basophils Percent Auto 0.4 % (0.0-3.0); Eosinophils Percent Auto 1.3 % (0.0-7.0); Hematocrit 18.4 % (33.0-51.0); Lymphocytes Percent Auto 58.2 % (20-44); Mean Corpuscular HGB Conc 31 gm/dL (32-36); Mean Corpuscular Hemoglobin 26 pg (26-34); Mean Corpuscular Volume 84 fL (80-100); Monocytes Percent Auto 7.3 % (0.0-11.0); Neutrophils Percent Auto 32.8 % (42.0-72.0); Red Blood Count 2.18 m/uL (4.00-5.20); White Blood Count* 2.32 K/uL (4.50-11.00)
[2021-11-09 23:02] LABS: SARS PCR* Negative SARS-CoV-2 (Negative)
[2021-11-09 23:05] LABS: Albumin* 3.8 g/dL (3.3-5.0); Chloride* 104 mmol/L (96-114)
[2021-11-09 23:06] LABS: Potassium* 3.2 mmol/L (3.6-5.1); Sodium* 143 mmol/L (135-149)
[2021-11-09 23:08] LABS: Aspartate Amino Transferase* 110 U/L (12-35); Bilirubin Direct* 0.3 mg/dL (0.0-0.5); Bilirubin Total* 0.9 mg/dL (0.1-1.5); Blood Urea Nitrogen* 9 mg/dL (5-24); Carbon Dioxide* 28 mmol/L (20-32); Creatinine* 0.4 mg/dL (0.5-1.5); Estimated Glomerular Filt Rate 127 ml/min; Total Protein* 7.5 g/dL (6.0-8.3)
[2021-11-09 23:09] LABS: Alanine Aminotransferase* 40 U/L (4-35); Alkaline Phosphatase* 136 U/L (40-150); Calcium* 8.3 mg/dL (8.4-10.6); Glucose* 113 mg/dL (60-115); Magnesium* 1.8 mg/dL (1.5-2.6)
[2021-11-09 23:11] LABS: C Reactive Protein* 0.5 mg/dL (0.5-1.0)
[2021-11-09 23:18] LABS: Hemoglobin* 5.7 gm/dL (12.0-16.0)
[2021-11-09 23:19] LABS: Ethanol* 0.39 % (0.01-0.03); Platelet Count* 43 K/uL (140-440)
[2021-11-09] MEDS: 0.9 % SODIUM CHLORIDE 1000 ml 1,000 ML IV (23:30)
[2021-11-10] VITALS (45 sets, daily range): BP systolic 93–123; BP diastolic 47–79; PULSE 83–99; RESP 16–18; TEMP 36.2–36.7; O2SAT 87–98
--- NOTE | 2021-11-10 00:16 | ED.NURSE ---
Pt assisted to bathroom with assist of 1 with wc. Pt weak, stated she has had rectal bleed and bleeding from the sores in her back. Denied any vomiting blood.
[2021-11-10 00:20] LABS: Appearance Urine Clear (Clear); Bilirubin Urine Negative (Negative); Blood Urine Negative (Negative); Color Urine Yellow (Yellow); Glucose Urine Negative (Negative); Ketones Urine Negative (Negative); Leukocyte Esterase Urine Negative (Negative); Nitrite Urine Negative (Negative); Protein Urine Negative (Negative); pH Urine 7.5 (5.0-8.5)
[2021-11-10 00:28] LABS: Amphetamine Screen Urine Negative (Negative); Barbiturate Screen Urine Negative (Negative); Benzodiazepines Screen Urine Negative (Negative); Cannabinoid Screen Urine Negative (Negative); Cocaine Screen Urine Negative (Negative); Methadone Screen Urine Negative (Negative); Methamphetamines Screen Urine Negative (Negative); Oxycodone Screen Urine Negative (Negative); Phencyclidine Screen Urine Negative (Negative); Tricyclic Antidepressant Urine Negative (Negative)
[2021-11-10 00:31] LABS: Opiate Screen Urine POSITIVE (Negative)
--- OUTSIDE RECORDS SUMMARY | 2021-11-10 00:34 | XMS_ITS | Encounter Summary ---
:1980 Author Organization [place] Address [address] [place] [id number] Care Team Providers Name Role Phone Stephani Pina BANK NOTE DESIGNER CONVEYOR 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 Unavailable [phone] Juanis Levi Primary Care Provider Elsa Yeh RN Unavailable Unavailable Rogelio Treadwell MD Unavailable [phone] Luis Camara DPM Unavailable [phone] Sintia Lange PA-C Unavailable Encounter Details Date Type Department Care Team Description 10/18/2021 Travel Social History Tobacco Use Types Packs/Day Years Used Date Current Every Day Smoker Cigarettes 0.25 10 Smokeless Tobacco: Never Used Comments: 5-8 cigarettes a day (hasn't s moked since in transitional care 07/23/21) Alcohol Use Standard Drinks/Week Comments Not Currently 0 (1 standard drink = 0.6 oz pure alcoho l) sober since 05/08 Alcohol Habits Answer Date Recorded How often do you have a drink containing alcohol? Not asked 05/31/2020 How many drinks containing alcohol do you have on a Not aske d 05/31/2020 typical day when you are drinking? How often do you have six or more drinks on one Not asked 05/31/2020 occasion? Comment: sober since 05/0808/15/2021 Sex Assigned at Date Recorded Female 01/14/2020 10:57 AM [employer] COVID-19 Exposure Response Date Recorded In the last 10 days, have you been in contact Unable to asse ss 10/18/2021 4:13 PM CDT with someone who was confirmed or suspected to have Coronavirus/COVID-19? documented as of this encounter Plan of Treatment Upcoming Encounters Date Type Specialty Care Team Description 11/15/2021 Office Visit Wound Care Luis Camara DPM [address] [place], [place] [id number] (Wo rk) documented as of this encounter Visit Diagnoses Not on filedocumented in this encounter Additional Health Concerns Infection Onset Date Last Indicated Resolved Time MRSAComment: Added from external infection. 11/07/201406/18 Assessment Noted Time PHQ-9 Depression Total Score: 8 10/18/2021 3:15 PM CDT documented as of this encounter Care Teams Chief Of Service Relationship Specialty Start Date End Date Juanis Levi PCP - General Addiction Medicine 06/29/[address] [place] [address] [phone] Stephani Pina, Assigned PCP 02/25/21 BANK NOTE DESIGNER CONVEYOR 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 [address] [phone] Elsa Yeh, Registered Nurse Infectious Diseases 07/25/21 Rogelio Wilson Assigned Musculoskeletal 08/04/21 MD August Provider [address] [place] [address] [phone] Luis Camara MD Podiatry 08/16/21 CALVIN Burnett [address] [place] [address] [phone] Sintia Lange, Assigned Surgical 09/08/21 [facility] Provider [address] [place] [address] [phone] documented as of this encounter
--- OUTSIDE RECORDS SUMMARY | 2021-11-10 00:34 | XMS_ITS | Clinical Summary ---
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 Unavailable [phone] Juanis Levi Primary Care Provider Elsa Yeh RN Unavailable Unavailable Rogelio Treadwell MD Unavailable [phone] Luis Camara DPM Unavailable [phone] Sintia Lange PA-C Unavailable Allergies No known active allergies Medications Medication Sig Dispensed Refills Start End Date Status Date cholecalciferol 50 Take 1 tablet 90 tablet 1 Active MCG (1999 UT) (50 mcg) by 1 tabletIndications: mouth daily Vitamin D Deficiency nicotine (NICODERM Place 1 patch 28 patch 11 Active CQ) 14 MG/24HR 24 onto the skin 1 hr every 24 hours patchIndications: Nicotine Dependence acetaminophen Take 3 tablets 40 tablet 0 A ctive (TYLENOL) 325 MG (975 mg) by 2 tabletIndications: mouth every 8 Osteomyelitis of hours as needed right ankle, for mild pain unspecified type (H) aspirin (ASA) 81 MG Take 2 tablets 60 tablet 0 Active EC (162 mg) by 2 tabletIndications: mouth daily dvt ppx fexofenadine Take 1 tablet 0 Act paula (ELOISE) 180 MG (180 mg) by 2 tabletIndications: mouth daily as irritant dermatitis needed for allergies mineral Apply topically 0 Acti ve oil-hydrophilic every 4 hours 2 petrolatum as needed for (AQUAPHOR) external dry skin or ointment irritation folic acid Take 1 tablet 90 tablet 1 Activ e (FOLVITE) 1 MG (1 mg) by mouth 2 tabletIndications: daily Folate Deficiency Anemia lactulose Take 1 packet 60 Units 0 Active (CEPHULAC) 20 GM (20 g) by mouth 2 packetIndications: 2 times daily Constipation methocarbamol Take 1 tablet 90 tablet 0 Ac tive (ROBAXIN) 750 MG (750 mg) by 2 tabletIndications: mouth 3 times Osteomyelitis of daily right ankle, unspecified type (H) clindamycin Apply topically 60 mL 0 Ac tive (CLEOCIN T) 1 % 2 times daily 2 external lotionIndications: monomorphic follicular papules and pustules lidocaine Apply topically 50 mL 0 Acti ve (XYLOCAINE) 4 % Every Mon, Wed, 2 external Fri Morning solutionIndications : pain thiamine (B-1) 100 Take 1 tablet 30 tablet 0 Active MG (100 mg) by 2 tabletIndications: mouth daily Osteomyelitis of right ankle, unspecified type (H) senna-docusate Take 2 tablets 30 tablet 0 Active (SENOKOT-S/PERICOLA by mouth 2 2 CE) 8.6-50 MG times daily tabletIndications: Osteomyelitis of right ankle, unspecified type (H) diclofenac Apply 2 g 200 g 0 Active (VOLTAREN) 1 % topically 2 2 topical times daily gelIndications: Acute pain of left knee ibuprofen Take 1 tablet 30 tablet 0 Active (ADVIL/MOTRIN) 200 (200 mg) by 2 MG mouth every 6 tabletIndications: hours as needed Tooth pain for moderate pain (Dental pain) miconazole Apply topically 71 g 0 Act paula (MICATIN) 2 % 2 times daily 2 external powderIndications: Fungal rash of trunk gabapentin Take 1 capsule 90 capsule 1 Act paula (NEURONTIN) 300 MG (300 mg) by 2 capsuleIndications: mouth 3 times Anxiety, Alcohol daily use disorder, severe, dependence (H) nicotine polacrilex Place 1 each (4 240 each 11 Active (NICORETTE) 4 MG mg) inside 2 gumIndications: cheek every Tobacco use hour as needed disorder for smoking cessation levothyroxine Take 1 tablet 90 tablet 0 Ac tive (SYNTHROID/LEVOTHRO (125 mcg) by 2 ID) 125 MCG mouth every tabletIndications: morning Hypothyroidism cloNIDine Take 1 tablet 21 tablet 0 Active (CATAPRES) 0.1 MG (0.1 mg) by 2 tabletIndications: mouth every 8 Alcohol withdrawal hours for 7 syndrome without days complication (H) divalproex sodium Take 1 tablet 7 tablet 0 Active extended-release (500 mg) by 2 (DEPAKOTE ER) 500 mouth daily MG 24 hr tabletIndications: Alcohol withdrawal syndrome without complication (H) hydrOXYzine Take 1 tablet 90 tablet 0 Acti ve (ATARAX) 25 MG (25 mg) by 2 tabletIndications: mouth every 8 Anxiety, Pruritus hours as needed for anxiety ondansetron (ZOFRAN Take 1 tablet 15 tablet 0 Active ODT) 4 MG ODT (4 mg) by mouth 2 tabIndications: every 8 hours Alcohol withdrawal as needed for syndrome without nausea complication (H) apixaban Take 5 mg by 0 Active ANTICOAGULANT mouth 2 times (ELIQUIS) 5 MG daily tablet ondansetron (ZOFRAN Take 1 tablet 15 tablet 0 Active ODT) 4 MG ODT (4 mg) by mouth 2 tabIndications: every 8 hours Nausea as needed buprenorphine Place 1 tablet 30 tablet 0 A ctive (SUBUTEX) 8 MG SUBL (8 mg) under 2 sublingual the tongue 3 tabletIndications: times daily Opioid Dependence venlafaxine Take 1 capsule 30 capsule 1 Ac tive (EFFEXOR XR) 150 MG (150 mg) by 2 24 hr mouth daily capsuleIndications: Generalized Anxiety Disorder naloxone (NARCAN) 4 Turner 1 spray 0.2 mL 11 Discontinued MG/0.1ML nasal (4 mg) into one 2 22 sprayIndications: nostril Opioid use alternating disorder, severe, nostrils once in sustained as needed for remission, on opioid reversal maintenance therapy every 2-3 (H) minutes until assistance arrives venlafaxine Take 1 capsule 30 capsule 1 10/20/19 Di scontinued (EFFEXOR XR) 150 MG (150 mg) by 2 22 (Reorder) 24 hr mouth daily capsuleIndications: Generalized Anxiety Disorder buprenorphine Place 1 tablet 6 tablet 0 10/19/19 D iscontinued (SUBUTEX) 8 MG SUBL (8 mg) under 2 22 (Reorder) sublingual the tongue 3 tabletIndications: times daily Opioid Dependence divalproex sodium Take 500 mg by 0 0 Discontinued delayed-release mouth daily 22 (DEPAKOTE) [address] tablet Active Problems Problem Noted Date Non-healing surgical wound, subsequent encounter 07/31 Overview: Added automatically from request for rohan adams [id number] Physical deconditioning 07/23/2021 Osteomyelitis of right ankle, unspecified type 022 Alcohol withdrawal syndrome without complication 01/11 Alcohol withdrawal syndrome, with unspecified complica tion 04/01/2019 Alcohol abuse, continuous 07/04/2018 S/P emergency hysterectomy 12/25/2016 premature rupture of membranes (PPROM) deliver ed, current 12/07/2016 hospitalization High-risk , first trimester 08/02/2016 Twin with loss and retention of one fe tus in first 08/02/2016 trimester History of depression 08/02/2016 Chronic hepatitis C without hepatic coma 08/02/2016 Overview: 10/12/2016 - +Hep C antibody noted, RNA i n process 10/15/16: RNA completed. Please review at HR rounds for plan. 10/15/2016: Reviewed at HR rounds with Dr Alma Leyva. Referral to telecom field technician placed. Family history of SIDS (sudden infant syndrome) 08/02/2016 History of anomaly in prior , currently , first 08/02/2016 trimester Current with history of pre-term labor, firs t trimester 08/02/2016 History of 2 sections 08/02/2016 History of stillbirth 08/02/2016 H/O rupture of uterus 08/02/2016 History of MRSA infection 08/02/2016 Current every day smoker 08/01/2016 Hypothyroidism affecting in first trimester 08/01/2016 Myopia of both eyes 08/17/2015 Supervision of high-risk 07/21/2015 Uncomplicated opioid dependence 01/19/2015 Cardiac abnormality in fetus 11/04/2014 MRSA infection greater than 3 months ago 11/04/2014 Overview: Overview: Negative nare cultures on 11/04/14 and Moderate major depression 06/19/2012 Anxiety 04/14/2012 CARDIOVASCULAR SCREENING; LDL GOAL LESS THAN 160 10/27 Resolved Problems Problem Noted Date Resolved Date Drug dependence 08/02/2016 01/24/2020 Overview: Overview: started Oxycontin, 3 yrs, then heroin fo r 2 yrs complicated by chemical dependency, antepartum 01/19/2015 Opiate dependence 10/28/2011 01/19/2015 Encounters Date Type Specialty Care Team Description 10/18/2021 Travel 08/30/2021 Documentation Only Plastic Surgery Camryn Christina Ord ers (DME ORDER) MD Lexie 08/29/2021 Telephone Care Management Brittnee Scott RN 08/28/2021 Office Visit Plastic Surgery Sintia Lange, S/P flap graft PA-C (Primary Dx) 08/28/2021 Travel 08/27/2021 Telephone Plastic Surgery Camryn Christina Call Back MD Lexie 08/27/2021 Telephone Dermatology Unknown Erroneous encounter-disre aquilino 08/23/2021 Travel 08/22/2021 Office Visit Plastic Surgery Camryn Christina MD wound, subseque nt encounter (Prim jaime Dx) 08/22/2021 Travel 08/15/2021 Anesthesia Event Surgery Juanis Garnett MD Sogaard, Erik, MD 08/15/2021 Surgery Surgery Camryn Christina Right ankle split MD Lexie skin graft from right thigh 08/15/2021 Hospital Encounter Surgery Camryn Christina MD wound, subseque nt encounter 08/15/2021 Travel 08/15/2021 Hospital Encounter Rehabilitation Eros Recinos MD 08/10/2021 Telephone Plastic Surgery Camryn Christina MD 07/23/2021 - Hospital Encounter Rehabilitation Bethanie Dowd MD Osteomyelitis of right ankle, unspecifie d type (H) (Primary Dx); 08/22/2021 La Nena Babb, Alcohol us e disorder, severe, dependence (H); Anxiety; Steroid-induced acne; Non-healing rohan gical wound, subsequent encounter; Chronic hepatit is C without hepatic coma (H); Tooth pain; Acute pain of l eft knee; Fungal rash of trunk from Last 3 Months Immunizations Name Administration Dates Next Due COVID-19,PF,Pfizer 12+ Yrs (2021 and After) 08/17/2021 () Influenza Vaccine IM > 6 months Valent IIV4 12/08/2016 (Alfuria,Fluzone) MMR 12/27/2016 Mantoux Tuberculin Skin Test 08/14/2021, 07/24/2021 TDAP Vaccine (Adacel) 12/11/2016 Family History Medical History Relation Comments Substance Abuse Brother 1 No Known Problems Brother 2 No Known Problems Brother 3 Cerebrovascular Disease Father Myocardial Infarction Father Substance Abuse Father Cancer Maternal Grandfather Depression Mother Thyroid Disease Mother No Known Problems Sister 1 No Known Problems Sister 2 Asthma Son Relation Status Comments Brother 1 Brother 2 Brother 3 Father Alive Maternal Grandfather Alive Maternal Grandmother Mother Alive Paternal Grandfather Paternal Grandmother Sister 1 Sister 2 Son Social History Tobacco Use Types Packs/Day Years Used Date Current Every Day Smoker Cigarettes 0.25 10 Smokeless Tobacco: Never Used Tobacco Cessation: Ready to Quit: No; Co unseling Given: Yes Comments: 5-8 cigarettes a day (hasn't s [...] at Date Recorded 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 Last Filed Vital Signs Vital Sign Reading Time Taken Comments Blood Pressure 136/81 10/18/2021 3:16 PM CDT Pulse 97 10/18/2021 3:16 PM CDT Temperature 37.1 ??C (98.8 ??F) 08/28/2021 9:36 AM CDT Respiratory Rate 18 08/22/2021 7:38 AM CDT Oxygen Saturation 96% 08/28/2021 9:36 AM CDT Inhaled Oxygen Concentration - - Weight 81.2 kg (179 lb) 08/22/2021 10:04 AM CDT Height 167.6 cm (5' 6) 08/22/2021 10:04 AM CDT Body Mass Index 28.89 08/22/2021 10:04 AM CDT Plan of Treatment Upcoming Encounters Date Type Specialty Care Team Description 11/15/2021 Office Visit Wound Care Luis Camara, [place] [address] [place] [id number] (Wo rk) Health Maintenance Due Date Last Done Comments ADVANCE CARE PLANNING 1980 ANNUAL REVIEW OF HM ORDERS 1980 PREVENTIVE CARE VISIT 1980 Pneumococcal Vaccine: 1986 Pediatrics (0 to 5 Years) and At-Risk Patients (6 to 64 Years) (1 - PCV) HEPATITIS B IMMUNIZATION (1 09/25/1999 of 3 - Risk 3-dose series) PAP 05/18/2017 05/18/2012 COVID-19 Vaccine (2 - 11/08/2020 10/11/2020 Moderna series) NICOTINE/TOBACCO CESSATION 12/26/2020 12/27/2019, 9 COUNSELING Q 1 YR INFLUENZA VACCINE (#1) 2021 12/26/2020, 12/08/2016 PHQ-9 04/17/2022 10/18/2021, 12/15/2020, 12/27/2019, Additional history exists DTAP/TDAP/TD IMMUNIZATION 12/11/2026 12/11/2016, 11/04/2014 (3 - Td or Tdap) DEPRESSION ACTION PLAN Completed 09/15/2012 HIV SCREENING Completed 10/10/2016, 07/21/2015 IPV IMMUNIZATION Aged Out No longer eligi ble based on patient 's age to complete this topic MENINGITIS IMMUNIZATION Aged Out No longe r eligible based on patient 's age to complete this topic Procedures Procedure Name Priority Date/Time Associated Comments Diagnosis CBC WITH PLATELETS & Routine 08/20/2021 7:36 AM R esults for this DIFFERENTIAL CDT procedure are i n the results section. DIFFERENTIAL Routine 08/20/2021 7:36 AM Results f or this CDT procedure are i n the results section. CBC WITH PLATELETS Routine 08/20/2021 7:36 AM Res ults for this AND DIFFERENTIAL CDT procedure a re in the results section. CRP INFLAMMATION Routine 08/20/2021 7:36 AM Resul ts for this CDT procedure are i n the results section. BASIC METABOLIC PANEL Routine 08/20/2021 7:36 AM Results for this CDT procedure are i n the results section. EXTRA GREEN TOP Routine 08/17/2021 5:07 AM Result s for this (LITHIUM HEPARIN) CDT procedure are in TUBE the results section. EXTRA TUBE Routine 08/17/2021 5:07 AM Results f or this CDT procedure are i n the results section. CBC WITH PLATELETS Routine 08/17/2021 5:07 AM Res ults for this CDT procedure are i n the results section. EXTRA PURPLE TOP TUBE Routine 08/16/2021 1:07 PM Results for this CDT procedure are i n the results section. EXTRA TUBE Routine 08/16/2021 1:07 PM Results f or this CDT procedure are i n the results section. HEPATIC FUNCTION Routine 08/16/2021 1:05 PM Resul ts for this PANEL CDT procedure are i n the results section. BASIC METABOLIC PANEL Routine 08/16/2021 1:05 PM Results for this CDT procedure are i n the results section. SURGICAL PROCUREMENT, 08/15/2021 2:16 PM Non-healing GRAFT, SKIN, CDT surgical wound, SPLIT-THICKNESS, subsequent EXTREMITY encounter Special Needs Wound VAC ordered and approv ed. Please make sure patient brings wound vac and all supplies with on DOS. [facility] PLEASE CALL [phone] WITH ANY I NSTRUCTIONS AND TIME CHANGES FOR 08/15 SURGERY. THEY SET UP TRANSPORT ETC. Cristin [facility] Admission Notes since beginning of July; Dr. Christina and coordinator message to gregory rutherford situation. Per message from coordinator, TCU will do pre-op and COVID charito t (EK 08/10/21) COVID-19 VIRUS (CORONAVIRUS) STAT 08/14/2021 5:56 PM CDT Results for this BY PCR procedure are i n the results section . CBC WITH PLATELETS & Routine 08/13/2021 6:05 AM CDT Results for this DIFFERENTIAL procedure are i n the results section . CBC WITH PLATELETS AND Routine 08/13/2021 6:05 AM CDT Results for this DIFFERENTIAL procedure are i n the results section . CRP INFLAMMATION Routine 08/13/2021 6:05 AM CDT R esults for this procedure are i n the results section . BASIC METABOLIC PANEL Routine 08/13/2021 6:05 AM CDT Results for this procedure are i n the results section . COVID-19 VIRUS (CORONAVIRUS) Routine 08/10/2021 2:52 PM CDT Results for this BY PCR procedure are i n the results section . from Last 3 Months Results (ABNORMAL) CBC with platelets and differential (08/20/2021 7:36 AM CDT)Only the most recent of2 resultswithin the time period is included. [facility] gist Method Time Signature WBC Count 4.8 4.0 - 11.0 08/20/2021 [facility] 10e3/uL 8:53 AM CDT RBC Count 3.41 (L) 3.80 - 08/20/2021 [facility] 5.20 8:53 AM CDT 10e6/uL Hemoglobin 10.0 (L) 11.7 - 08/20/2021 [facility] 15.7 g/dL 8:53 AM CDT Hematocrit 30.4 (L) 35.0 - 08/20/2021 [facility] 47.0 % 8:53 AM CDT MCV 89 78 - 100 08/20/2021 [facility] fL 8:53 AM CDT MCH 29.3 26.5 - 08/20/2021 [facility] 33.0 pg 8:53 AM CDT MCHC 32.9 31.5 - 08/20/2021 [facility] 36.5 g/dL 8:53 AM CDT RDW 13.5 10.0 - 08/20/2021 [facility] 15.0 % 8:53 AM CDT Platelet Count 106 (L) 150 - 450 08/20/2021 [facility] 10e3/uL 8:53 AM CDT Specimen Anatomical Collection Method / Collection Time Recei isak Time (Source) Location / Volume Laterality Blood STRUCTURE OF LEFT Venipuncture / 08/20/2021 7:36 08/20 7:40 UPPER LIMB / Unknown AM CDT AM CDT Unknown La Nena Babb MD LAB - BLOOD ORDERABLES Performing Organization Address City/State/ZIP Code Phon [place] [phone] Care Lab [address] [facility], Room M309 (ABNORMAL) Manual Differential (08/20/2021 7:36 AM CDT) [facility] gist Method Time Signature % Neutrophils 45 % 08/20/2021 UR 8:53 AM LABORATORY CDT % Lymphocytes 41 % 08/20/2021 UR 8:53 AM LABORATORY CDT % Monocytes 10 % 08/20/2021 UR 8:53 AM LABORATORY CDT % Eosinophils 4 % 08/20/2021 UR 8:53 AM LABORATORY CDT % Basophils 0 % 08/20/2021 UR 8:53 AM LABORATORY CDT Absolute 2.2 1.6 - 8.3 08/20/2021 UR Neutrophils 10e3/uL 8:53 AM LABORATORY CDT Absolute 2.0 0.8 - 5.3 08/20/2021 UR Lymphocytes 10e3/uL 8:53 AM LABORATORY CDT Absolute 0.5 0.0 - 1.3 08/20/2021 UR Monocytes 10e3/uL 8:53 AM LABORATORY CDT Absolute 0.2 0.0 - 0.7 08/20/2021 UR Eosinophils 10e3/uL 8:53 AM LABORATORY CDT Absolute 0.0 0.0 - 0.2 08/20/2021 UR Basophils 10e3/uL 8:53 AM LABORATORY CDT RBC Morphology Confirmed RBC 08/20/2021 UR Indices 8:53 AM LABORATORY CDT Platelet Automated Automated 08/20/2021 UR Assessment Count Count 8:53 AM LABORATORY Confirmed. Confirmed. CDT Platelet Platelet morphology is morphology is normal. normal. Polychromasia Slight (A) None Seen 08/20/2021 UR 8:53 AM LABORATORY CDT Specimen Anatomical Collection Method / Collection Time Recei isak Time (Source) Location / Volume Laterality Blood STRUCTURE OF LEFT Venipuncture / 08/20/2021 7:36 08/20 7:40 UPPER LIMB / Unknown AM CDT AM CDT Unknown La Nena Babb MD LAB - BLOOD ORDERABLES Performing Organization Address City/[facility] [address]/ZIP Code Phon [place] [phone] [place] [address], Room M309 (ABNORMAL) CRP inflammation (08/20/2021 7:36 AM CDT)Only the most recent of2 resultswithin the time period is included. [facility] Time Signature CRP Inflammation 8.9 (H) 0.0 - 8.0 08/20/2021 UR LABORATOR Y mg/L 8:08 AM CDT Specimen Anatomical Collection Method / Collection Time Recei isak Time (Source) Location / Volume Laterality Blood STRUCTURE OF LEFT Venipuncture / 08/20/2021 7:36 08/20 7:40 UPPER LIMB / Unknown AM CDT AM CDT Unknown La Nena Babb MD LAB - BLOOD ORDERABLES Performing Organization Address City/[facility] [address]/ZIP Code Ph[place] [phone] Care Lab [address] [place] [address], Room M309 (ABNORMAL) Basic metabolic panel (08/20/2021 7:36 AM CDT)Only the most recent of 3 resultswithin the time period is included. [employer] Method Time Signature Sodium 142 133 - 144 08/20/2021 [facility] mmol/L 8:08 AM CDT Potassium 4.1 3.4 - 5.3 08/20/2021 [facility] mmol/L 8:08 AM CDT Chloride 109 94 - 109 08/20/2021 [facility] mmol/L 8:08 AM CDT Carbon Dioxide 26 20 - 32 08/20/2021 [facility] (CO2) mmol/L 8:08 AM CDT Anion Gap 7 3 - 14 08/20/2021 [facility] mmol/L 8:08 AM CDT Urea Nitrogen 12 7 - 30 08/20/2021 UR [facility] mg/dL 8:08 AM CDT Creatinine 0.32 (L) 0.52 - 08/20/2021 [facility] 1.04 mg/dL 8:08 AM CDT Calcium 8.7 8.5 - 10.1 08/20/2021 [facility] mg/dL 8:08 AM CDT Glucose 119 (H) 70 - 99 08/20/2021 [facility] mg/dL 8:08 AM CDT GFR Estimate >90 >60 08/20/2021 [facility] mL/min/1.7 8:08 AM CDT 3m2 Comment: Effective February 06, 2021 eGF Rcr in adults is calculated using the 2020 CKD-EPI creatinine equation which includ es age and gender (Paul et al., NEJM, DOI: 10.1056/DTFBxu0857994) Specimen Anatomical Collection Method / Collection Time Recei isak Time (Source) Location / Volume Laterality Blood STRUCTURE OF LEFT Venipuncture / 08/20/2021 7:36 08/20 7:40 UPPER LIMB / Unknown AM CDT AM CDT Unknown La Nena Babb MD LAB - BLOOD ORDERABLES Performing Organization Address City/State/ZIP Code Ph[place] [phone] Care Lab [address] [facility], Room M309 Extra Green Top ([place] Heparin) Tube (08/17/2021 5:07 AM CDT) P athologist Signature Hold Specimen JI 08/17/2021 [facility] 6:48 AM CDT Specimen Anatomical Collection Method / Collection Time Recei isak Time (Source) Location / Volume Laterality Blood STRUCTURE OF RIGHT Venipuncture / 08/17/2021 5:07 07/0 02/2021 5:45 UPPER LIMB / Unknown AM CDT AM CDT Unknown Lab Non-Fv Credentialed Provider LAB - BLOOD ORDERABLE S Performing Organization Address City/State/ZIP Code Ph[place] [phone] [address] [place] [address], Room M309 (ABNORMAL) CBC with platelets (08/17/2021 5:07 AM CDT) [facility] gist Method Time Signature WBC Count 8.2 4.0 - 11.0 08/17/2021 [facility] 10e3/uL 5:47 AM CDT RBC Count 3.34 (L) 3.80 - 08/17/2021 [facility] 5.20 5:47 AM CDT 10e6/uL Hemoglobin 10.0 (L) 11.7 - 08/17/2021 [facility] 15.7 g/dL 5:47 AM CDT Hematocrit 30.5 (L) 35.0 - 08/17/2021 UR [facility] 47.0 % 5:47 AM CDT MCV 91 78 - 100 08/17/2021 [facility] fL 5:47 AM CDT MCH 29.9 26.5 - 08/17/2021 [facility] 33.0 pg 5:47 AM CDT MCHC 32.8 31.5 - 08/17/2021 [facility] 36.5 g/dL 5:47 AM CDT RDW 13.6 10.0 - 08/17/2021 [facility] 15.0 % 5:47 AM CDT Platelet Count 119 (L) 150 - 450 08/17/2021 [facility] 10e3/uL 5:47 AM CDT Specimen Anatomical Collection Method / Collection Time Recei isak Time (Source) Location / Volume Laterality Blood STRUCTURE OF RIGHT Venipuncture / 08/17/2021 5:07 07/0 02/2021 5:42 UPPER LIMB / Unknown AM CDT AM CDT Unknown Eros Ibanez MD LAB - BLOOD ORDERABLES Performing Organization Address City/State/ZIP Code Ph[place] [phone] Care Lab [address] [facility], Room M309 Extra Purple Top Tube (08/16/2021 1:07 PM CDT) P athologist Signature Hold Specimen JIC 08/16/2021 [facility] 2:34 PM CDT Specimen Anatomical Collection Method / Collection Time Recei isak Time (Source) Location / Volume Laterality Blood STRUCTURE OF LEFT Venipuncture / 08/16/2021 1:07 08/16 1:17 UPPER LIMB / Unknown PM CDT PM CDT Unknown La Nena Babb MD LAB - BLOOD ORDERABLES Performing Organization Address City/State/ZIP Code [place] [phone] [address] [place] [address], Room M309 (ABNORMAL) Hepatic panel (08/16/2021 1:05 PM CDT) Patholo gist Method Time Signature Bilirubin Total 0.5 0.2 - 1.3 08/16/2021 [facility] mg/dL 1:52 PM CDT Bilirubin Direct 0.2 0.0 - 0.2 08/16/2021 UR LABORATOR Y mg/dL 1:52 PM CDT Protein Total 7.4 6.8 - 8.8 08/16/2021 UR [facility] g/dL 1:52 PM CDT Albumin 2.6 (L) 3.4 - 5.0 08/16/2021 UR [facility] g/dL 1:52 PM CDT Alkaline 135 40 - 150 08/16/2021 [facility] Phosphatase U/L 1:52 PM CDT AST 18 0 - 45 U/L 08/16/2021 [facility] 1:52 PM CDT ALT 31 0 - 50 U/L 08/16/2021 [facility] 1:52 PM CDT Specimen Anatomical Collection Method / Collection Time Recei isak Time (Source) Location / Volume Laterality Blood STRUCTURE OF LEFT Venipuncture / 08/16/2021 1:05 08/16 1:16 UPPER LIMB / Unknown PM CDT PM CDT Unknown Eros Ibanez MD LAB - BLOOD ORDERABLES Performing Organization Address City/State/ZIP Code [place] [phone] Care Lab [address] [facility], Room M309 Asymptomatic COVID-19 Virus (Coronavirus) by PCR Nasopharyngeal (08/14/2021 5:56 PM CDT)Only the most recent of2 resultswithin the time period is included. Analysis Performed At Patho logist Time Signature SARS CoV2 PCR Negative Negative 08/14/2021 [facility] 8:03 PM CDT Comment: NEGATIVE: SARS-CoV-2 (COVID-19) RNA not detected, presumed negative. Specimen Anatomical Location / Collection Method Collection Jeff e Received Time (Source) Laterality / Volume Swab NASOPHARYNGEAL Non-blood 08/14/2021 5:56 08/14/2021 6:05 STRUCTURE / Unknown Collection / PM CDT PM CDT Unknown Narrative [facility] - 08/14/2021 8:03 PM CDT Testing was performed using the ben?? SARS-CoV-2 & Influenza A/B Assay on the ben?? Mervat?? System. ??This test shoul d be ordered for the detection of SARS-COV-2 in individuals who meet SARS-CoV-2 clini ponce and/or epidemiological criteria. Test performance is unknown in asymptomatic p atients. ??This test is for in vitro diagnostic use under the FDA EUA for lab oratories certified under CLIA to perform moderate and/or high complexity testing. This test has not been FDA cleared or approved. ??A negative test does not rul e out the presence of PCR inhibitors in the specimen or target RNA in concentration below the limit of detection for the assay. The possibility of a false negative shou ld be considered if the patient's recent exposure or clinical presentation sugges ts COVID-19. ??[facility] are certified under the Clinical Laborat ory Improvement Amendments of 1988 (CLIA-88) as qualified to perform moderate and/or high complexity laboratory testing. Christiano Santacruz MD LAB - MICRO GENERAL ORDERABL ES Performing Organization Address City/State/ZIP Code Phon e Number UR LABORATORY [facility] [place] [address] Care Lab [address] [facility], Room M309 from Last 3 Months Additional Health Concerns Infection Onset Date Last Indicated MRSAComment: Added from external infection. 11/07/2014 07/07/2021 Insurance Payer Benefit Plan / Subscriber ID Effective Dates Phone Addre ss Type Group [facility] [id number] 2021-Present [phone] [address] [place] [address] [facility] [address] (Home) [place], [place] [phone] [address] (Work) Advance Directives For more information, please contact: [phone] Latest Code Status on File Code Status Date Activated Date Inactivated Comments Full Code 07/23/2021 4:16 PM 08/22/2021 6:19 PM All basic and advanced life-sustaining interventions ar e performed as appropriate Code status determined by: Unable to discuss and no AD/POLST on file; continue PREVIOUSLY ORDERED code status Full Code 07/06/2021 2:02 PM 07/23/2021 3:56 PM All basic and advanced life-sustaining interventions ar e performed as appropriate Code status determined by: Discussion with patient/ legal de cision maker Full Code 01/12/2020 2:39 AM 01/14/2020 8:53 PM All basic and advanced life-sustaining interventions are performed as denisa ropriate Code status determined by: Unable to determine; FULL C ODE until documents or legal decision maker available Full Code 04/01/2019 10:46 PM 04/04/2019 1:46 PM Code status determined by: Discussion with patient/legal dec ision maker Full Code 07/04/2018 10:44 PM 07/08/2018 3:47 PM Code status determined by: Discussion with patient/legal dec ision maker Care Teams Cdl Service Technician Relationship Specialty Start Date End Date Juanis Levi PCP - General Addiction Medicine 06/29/21 [address] [place] [address] Stephani Pina, Assigned PCP 02/25/21 OPERATIONS INTELLIGENCE DATA ENTRY MANAGER [address] [place], [place] [address] Elsa Yeh, Registered Nurse Infectious Diseases 07/25/21 RN Rogelio Treadwell Assigned Musculoskeletal 08/04/21 MD August Provider [address] [place] [address] Luis Camara MD Podiatry 08/16/21 CALVIN Burnett [address] [place] [address] Sintia Lange, Assigned Surgical 09/08/21 PAMcC Provider [address] [place] [address]
--- OUTSIDE RECORDS SUMMARY | 2021-11-10 00:34 | XMS_ITS | Encounter Summary ---
:1980 Author Organization [place] Address [address] [place] [address] Care Team Providers Name Role Phone Stephani Pina APRN FIELD INSTALLATION TECHNICIAN Unavailable [phone] Juanis Levi Primary Care Provider Elsa Yeh RN Unavailable Unavailable Rogelio Treadwell MD Unavailable [phone] Luis Camara DPM Unavailable [phone] Encounter Details Date Type Department Care Team Description 08/29/2021 Telephone [facility] CASE MANAGEMENT Brittnee Scott, GENARO [address] [place] [address] [phone] Social History Tobacco Use Types Packs/Day Years Used Date Former Smoker Cigarettes 0.25 10 Smokeless Tobacco: Never [...] at Date Recorded Female 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 documented as of this encounter Miscellaneous Notes Telephone Encounter - Brittnee Scott RN - 08/29/2021 9:23 AM CDT Late Entry: Care Coordination 08/23: Home Care agency was not listed on AVS. Formulation Chemist called Stephani, Left VM to patient that home care agency was [facility] and contact info for home care agency. Formulation Chemist also left personal office phone number, in case of follow up questions. Formulation Chemist did not receive any follow up calls. 08/27: Per report from TCU, HOT SAW OPERATOR received a call from patient re: home care on 08/27. Formulation Chemist left Vm with home care agency to verify if patient has been seen by home care. 08/29: Received call return call from [facility]. Per Violeta at [facility], Home care agency visiting nurse and ramp manager have made multiple attempts to see patient. Patient has refused to make appointment for visits despite attempts. Reached out to mother to assist in scheduling as well, but this was also unsuccessful. Brittnee Scott Patient [facility] Acute Rehabilitation Unit/ Transitional Care Unit. documented in this encounter Plan of Treatment Upcoming Encounters Date Type Specialty Care Team Description 11/15/2021 Office Visit Wound Care Luis Camara DPM [address] [place] [address] (Wo rk) documented as of this encounter Visit Diagnoses Not on filedocumented in this encounter Additional Health Concerns Infection Onset Date Last Indicated Resolved Time MRSAComment: Added from external infection. 11/07/2014 05/2 02/2021 Assessment Noted Time PHQ-9 Depression Total Score: 2 12/15/2020 1:07 PM CDT documented as of this encounter Care Teams Medical Technologist Blood Bank Relationship Specialty Start Date End Date Juanis Levi PCP - General Addiction Medicine 06/29/[address] [place] [phone] Stephani Pina, Assigned PCP 02/25/21 COMPUTER SYSTEMS SECURITY ANALYST FIELD INSTALLATION TECHNICIAN [address] [place], [place] [address] Elsa Yeh, Registered Nurse Infectious Diseases 07/25/21 RN Rogelio Treadwell Assigned Musculoskeletal 08/04/21 MD August Provider [address] [place] [address] Luis Camara MD Podiatry 08/16/21 CALVIN Burnett [address] [place] [address] documented as of this encounter
--- OUTSIDE RECORDS SUMMARY | 2021-11-10 00:34 | XMS_ITS | Encounter Summary ---
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 documented as of this encounter Plan of Treatment Upcoming Encounters Date Type Specialty Care Team Description 11/15/2021 Office Visit Wound Care Luis Camara, CALVIN [address] [place] [address] (Wo rk) documented as of this encounter Visit Diagnoses Not on filedocumented in this encounter Additional Health Concerns Infection Onset Date Last Indicated Resolved Time MRSAComment: Added from external infection. 11/07/2014 05/2 02/2021 Assessment Noted Time PHQ-9 Depression Total Score: 2 12/15/2020 1:07 PM CDT documented as of this encounter Care Teams Bacteriologist Dairy Relationship Specialty Start Date End Date Juanis Levi PCP - General Addiction Medicine 06/29/21 [address] [place] [phone] Stephani Pina, Assigned PCP 02/25/21 TUMOR REGISTRAR AIRPLANE PATROL PILOT [address] [place], [place] [address] Elsa Yeh, Registered Nurse Infectious Diseases 07/25/21 RN Rogelio Treadwell Assigned Musculoskeletal 08/04/21 MD August Provider [address] [place], [place] [address] Luis Camara MD Podiatry 08/16/21 CALVIN Burnett [address] [place] [address] documented as of this encounter
--- OUTSIDE RECORDS SUMMARY | 2021-11-10 00:34 | XMS_ITS | Encounter Summary ---
:1980 Author Organization [facility] Address [address] [place] [address] Care Team Providers Name Role Phone Stephani Pina APRN ACROBATIC DANCER Unavailable [phone] Juanis Levi Primary Care Provider Elsa Yeh RN Unavailable Unavailable Rogelio Treadwell MD Unavailable [phone] Luis Camara DPM Unavailable [phone] Reason for Visit Reason Comments Orders DME ORDER Encounter Details Date Type Department Care Team Description 08/30/2021 Documentation Only [facility] Camryn Christina (DME ORDER) Seb and MD Lexie Reconstructive Surgery [address] [place] [address] 195 [address] [place], [place] 4th Floor [address] [place], [place] [phone] [address] (Work) [phone] Social History Tobacco Use Types Packs/Day Years [...] at Date Recorded Female 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 documented as of this encounter Plan of Treatment Upcoming Encounters Date Type Specialty Care Team Description 11/15/2021 Office Visit Wound Care Luis Camara DPM [address] [place] [address] (Wo rk) documented as of this encounter Visit Diagnoses Diagnosis Other complications of procedures, not e lsewhere classified, subsequent encounter - Primary documented in this encounter Additional Health Concerns Infection Onset Date Last Indicated Resolved Time MRSAComment: Added from external infection. 11/07/201406/18 Assessment Noted Time PHQ-9 Depression Total Score: 2 12/15/2020 1:07 PM CDT documented as of this encounter Care Teams Oil Heaterman Relationship Specialty Start Date End Date Juanis Levi PCP - General Addiction Medicine 06/29/21 [facility] [place] [phone] Stephani Pina, Assigned PCP 02/25/21 GETTERING OPERATOR ACROBATIC DANCER [address] [phone] Elsa Yeh, Registered Nurse Infectious Diseases 07/25/21 Rogelio Wilson Assigned Musculoskeletal 08/04/21 MD August Provider [address] [place] [address] Luis Camara MD Podiatry 08/16/21 CALVIN Burnett [address] [place] [address] documented as of this encounter
--- OUTSIDE RECORDS SUMMARY | 2021-11-10 00:34 | XMS_ITS | Encounter Summary ---
:1980 Author Organization [facility] Address [address] [place] [address] Care Team Providers Name Role Phone Stephani Pina APRN CRYSTAL SYRUP MAKER Unavailable [phone] Juanis Levi Primary Care Provider Elsa Yeh RN Unavailable Unavailable Rogelio Treadwell MD Unavailable [phone] Luis Camara DPM Unavailable [phone] Camryn Christina MD Unavailable Sintia Lange PA-C Unavailable Reason for Visit Reason Onset Date Comments Call Back 08/27/2021 Encounter Details Date Type Department Care Team Description 08/27/2021 Telephone [facility] Plastic and Camryn Christina, Call Back Reconstructive Surgery Clinic [place] [address] [place] [address] 4th Floor [place] [phone] Social History Tobacco Use Types Packs/Day Years [...] at Date Recorded Female 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 documented as of this encounter Miscellaneous Notes Telephone Encounter - Lesly Pina RN - 08/27/2021 4:33 PM CDT Discussed with pt that if symptoms become severe or change significantly to go to ER before tomorrow. Telephone Encounter - Lesly Pina RN - 08/27/2021 4:15 PM CDT Spoke with pt, she is concerned about temps in the 99.4 range (states her house is hot and most areas where she is spending time are not air conditioned). Denies shortness of breath, cough, malaise, body aches or spreading redness by her wound. She thinks her calf is slightly warm to the touch and slightly red, but denies any calf pain. She isgetting up and moving about once per hour. States the boot rubs when she walks more and does the stairs. She has been doing the stairs at her home to use the bathroom and this is uncomfortable and causes rubbing of her boot. She has an appointment tomorrow morning for follow up. Advised that she keep this appointment. Telephone Encounter - Lesly Pina RN - 08/27/2021 4:15 PM CDT You may contact Lesly garcia RN 8-3:30 Mon-Fri with questions or concerns through a [employer] message via your doctor's name (most efficient) or, call [phone]. For urgent medical issues that cannot wait, call the clinic at [phone] Mon- Fri 8:-4:30. If you need help over the weekend you can call the hospital to speak with the on-call resident. Thatnumber is [phone]. Telephone Encounter - Joseph Farmer - 08/27/2021 3:53 PM CDT [facility] Call Center Phone Message May a detailed message be left on voicemail: yes Reason for Call: Other: Stephani is calling in asking for a call back. She states that she would like tospeak with a member of her care team, as she has some questions about her wound that she would like to speak with them about. Please call back as soon as possible to discuss. Action Taken: Message routed to: [facility] Plastic Surg Travel Screening: Not Applicable documented in this encounter Plan of Treatment Upcoming Encounters Date Type Specialty Care Team Description 11/15/2021 Office Visit Wound Care Luis Camara DPM [address] [place], [place] [address] (Wo rk) documented as of this encounter Visit Diagnoses Not on filedocumented in this encounter Additional Health Concerns Infection Onset Date Last Indicated Resolved Time MRSAComment: Added from external infection. 11/07/2014 05/2 02/2021 Assessment Noted Time PHQ-9 Depression Total Score: 2 12/15/2020 1:07 PM CDT documented as of this encounter Care Teams Maintenance Chief Relationship Specialty Start Date End Date Juanis Levi PCP - General Addiction Medicine 06/29/[address] [place] [phone] Stephani Pina, Assigned PCP 02/25/21 SUPERVISOR KENNEL CRYSTAL SYRUP MAKER [address] [place] [address] Elsa Yeh, Registered Nurse Infectious Diseases 07/25/21 Rogelio Wilson Assigned Musculoskeletal 08/04/21 MD August Provider [address] [place] [address] Luis Camara MD Podiatry 08/16/21 CALVIN Burnett [address] [place] [address] Camryn Christina Assigned Surgical 09/01/21 09/07/21 MD Lexie Provider [address] [facility] [address] [place] [address] Sintia Lange, Assigned Surgical 09/08/21 PA-C Provider 9 [facility] [address] [place] [address] documented as of this encounter
--- OUTSIDE RECORDS SUMMARY | 2021-11-10 00:34 | XMS_ITS | Encounter Summary ---
:1980 Author Organization [place] Address [address] [place] [address] Care Team Providers Name Role Phone Stephani Pina APRN CIRCULAR RIPSAW OPERATOR Unavailable [phone] Juanis Levi Primary Care Provider Elsa Yeh RN Unavailable Unavailable Rogelio Treadwell MD Unavailable [phone] Luis Camara DPM Unavailable [phone] Reason for Visit Reason Comments Surgical Followup 2 week follow up -- DOS 08/15 Encounter Details Date Type Department Care Team Description 08/28/2021 Office Visit [facility] Sintia Lange, S/P fl ap graft Plastic and PA-C (Primary Dx) Reconstructive Surgery 9[address] [facility] 4TH FLOOR [address] [address] [place], [place] [phone] [address] (Work) [phone] Social History Tobacco Use Types Packs/Day Years [...] at Date Recorded Female 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 documented as of this encounter Last Filed Vital Signs Vital Sign Reading Time Taken Comments Blood Pressure 114/62 08/28/2021 9:36 AM CDT Pulse 97 08/28/2021 9:36 AM CDT Temperature 37.1 ??C (98.8 ??F) 08/28/2021 9:36 AM CDT Respiratory Rate - - Oxygen Saturation 96% 08/28/2021 9:36 AM CDT Inhaled Oxygen Concentration - - Weight - - Height - - Body Mass Index - - documented in this encounter Progress Notes Sintia Lange PA-C - 08/28/2021 9:30 AM CDT Plastic Surgery Outpatient Visit ID: Stephani Knig is a 40 year old female s/p STSG for R ankle wound 08/15/2021. S: Doing ok. Having increased swelling to legs bilaterally. Wearing gus wrap but has blisters to topof R foot from it. O: BP 114/62 Pulse 97 Temp 98.8 ??F (37.1 ??C) (Oral) LMP 05/24/2016 (Approximate) SpO2 96% General: NAD RLE: ankle skin graft well healed, crusting to edges. Lower legs with folliculitis bilaterally. No cellulitis. + BLE edema. +intact blisters to dorsum of R foot. Thigh donor site healed. A/P: -healing well -maryann removed, aquafor to skin graft daily. Ok to cover with mepilex. -Wear compression to legs. Will try tubigrip, gus wrap was too tight on ankle. Elevate when not moving. -xeroform/dressing to thigh per patient request, wants to keep it covered one more week, ok to use aquafor and leave open -stop cam boot -RTC [address] Carri Lange PA-C Plastic and Reconstructive Surgery 20 minutes spent on the date of the encounter doing chart review, history and physical, dressing changes, documentation and further activity as noted above. documented in this encounter Nursing Notes Ira Avila EMT - 08/28/2021 9:30 AM CDT Chief Complaint Patient presents with ??? Surgical Followup 2 week follow up -- DOS 08/15 Vitals: 08/28/21 0936 BP: 114/62 Pulse: 97 Temp: 98.8 ??F (37.1 ??C) TempSrc: Oral SpO2: 96% There is no height or weight on file to calculate BMI. IRA AVILA EMT documented in this encounter Plan of Treatment Upcoming Encounters Date Type Specialty Care Team Description 11/15/2021 Office Visit Wound Care Luis Camara DPM [address] [place], [place] [address] (Wo rk) documented as of this encounter Visit Diagnoses Diagnosis S/P flap graft - Primary Other postprocedural status documented in this encounter Additional Health Concerns Infection Onset Date Last Indicated Resolved Time MRSAComment: Added from external infection. 11/07/2014 05/2 02/2021 Assessment Noted Time PHQ-9 Depression Total Score: 2 12/15/2020 1:07 PM CDT documented as of this encounter Care Teams Commercial Green Building Designer Relationship Specialty Start Date End Date Juanis Levi PCP - General Addiction Medicine 06/29/21 [address] [place] [phone] Stephani Pina, Assigned PCP 02/25/21 DRY HEAT CABINET ATTENDANT CIRCULAR RIPSAW OPERATOR [address] [address] Elsa Yeh, Registered Nurse Infectious Diseases 07/25/21 RN Rogelio Treadwell Assigned Musculoskeletal 08/04/21 MD August Provider [address] [place], [place] [phone] Luis Camara MD Podiatry 08/16/21 CALVIN Burnett [address] [place] [id number] documented as of this encounter
--- OUTSIDE RECORDS SUMMARY | 2021-11-10 00:34 | XMS_ITS | Encounter Summary ---
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 documented as of this encounter Plan of Treatment Upcoming Encounters Date Type Specialty Care Team Description 11/15/2021 Office Visit Wound Care Luis Camara, CALVIN [address] [place] [address] (Wo rk) documented as of this encounter Visit Diagnoses Not on filedocumented in this encounter Additional Health Concerns Infection Onset Date Last Indicated Resolved Time MRSAComment: Added from external infection. 11/07/2014 05/2 02/2021 Assessment Noted Time PHQ-9 Depression Total Score: 2 12/15/2020 1:07 PM CDT documented as of this encounter Care Teams Wound Care Technician Relationship Specialty Start Date End Date Juanis Levi PCP - General Addiction Medicine 06/29/21 [address] [place] [phone] Stephani Pina, Assigned PCP 02/25/21 MANAGER COMPLIANCE BIOMEDICAL ENGINEERING TECHNOLOGIST [address] [place], [place] [phone] Elsa Yeh, Registered Nurse Infectious Diseases 07/25/21 RN Rogelio Treadwell Assigned Musculoskeletal 08/04/21 MD August Provider [address] [place], [place] [address] Luis Camara MD Podiatry 08/16/21 CALVIN Burnett [address] [place] [address] documented as of this encounter
--- OUTSIDE RECORDS SUMMARY | 2021-11-10 00:34 | XMS_ITS | Encounter Summary ---
:1980 Author Organization [facility] Address [address] [place] [address] Care Team Providers Name Role Phone Stephani Pina APRN MOISTURE METER READER Unavailable [phone] Juanis Levi Primary Care Provider Elsa Yeh RN Unavailable Unavailable Rogelio Treadwell MD Unavailable [phone] Luis Camara DPM Unavailable [phone] Reason for Visit Reason Comments RECHESTELLE Styles, is being seen today fo r a 1 week post-op DOS 08/15 Encounter Details Date Type Department Care Team Description 08/22/2021 Office Visit [facility] Camryn Christina surgical Plastic and MD Lexie wound, subsequent Reconstructive Surgery [address] en counter ([facility] [address]) [address] [place], [place] 4th Floor [address] [place], [place] [phone] (Work) [phone] Social History Tobacco Use Types Packs/Day Years [...] at Date Recorded Female 01/14/2020 10:57 AM SHOVEL LOGGER COVID-19 Exposure Response Date Recorded In the last 10 days, have you been in contact with No / Unsu re 08/22/2021 9:42 AM CDT someone who was confirmed or suspected to have Coronavirus/COVID-19? documented as of this encounter Last Filed Vital Signs Vital Sign Reading Time Taken Comments Blood Pressure 119/68 08/22/2021 10:04 AM CDT Pulse 97 08/22/2021 10:04 AM CDT Temperature 37 ??C (98.6 ??F) 08/22/2021 10:04 AM CDT Respiratory Rate - - Oxygen Saturation 95% 08/22/2021 10:04 AM CDT Inhaled Oxygen Concentration - - Weight 81.2 kg (179 lb) 08/22/2021 10:04 AM CDT Height 167.6 cm (5' 6) 08/22/2021 10:04 AM CDT Body Mass Index 28.89 08/22/2021 10:04 AM CDT documented in this encounter Progress Notes Camryn Christina MD - 08/22/2021 10:15 AM CDT PRESENTING COMPLAINT: Postoperative visit status post right ankle wound split thickness skin graft done on 08/15/2021. HISTORY OF PRESENTING COMPLAINT: Ms. King is 40 years old and is a week out from surgery, done well, been in a TCU. No issues. PHYSICAL EXAMINATION: Vital signs stable. She is afebrile, in no obvious distress. Took down the dressings. Skin graft taken well. The donor sites healing well. ASSESSMENT AND PLAN: Based on the above findings, a diagnosis of right leg reconstruction with splitthickness skin graft was made. Advised Xeroform dressings on a daily basis. Continue with CAM Boot for another week. See us back in a week's time to remove the sutures and maryann. All questions answered. She was happy with the visit. I will let the TCU now. All exam and discussion done in presence of my nurse, Lesly Pina. documented in this encounter Nursing Notes Brittnee Cyr LPN - 08/22/2021 10:15 AM CDT Chief Complaint Patient presents with ??? RECHECK Stephani, is being seen today for a 1 week post-op DOS 08/15 Vitals: 08/22/21 1004 BP: 119/68 BP Location: Right arm Patient Position: Chair Cuff Size: Adult Regular Pulse: 97 Temp: 98.6 ??F (37 ??C) TempSrc: Oral SpO2: 95% Weight: 81.2 kg (179 lb) Height: 1.676 m (5' 6) Body mass index is 28.89 kg/m??. Brittnee Cyr LPN documented in this encounter Plan of Treatment Upcoming Encounters Date Type Specialty Care Team Description 11/15/2021 Office Visit Wound Care Luis Camara DPM [address] [place] [address] (Wo rk) documented as of this encounter Visit Diagnoses Diagnosis Non-healing surgical wound, subsequent e ncounter - Primary documented in this encounter Additional Health Concerns Infection Onset Date Last Indicated Resolved Time MRSAComment: Added from external infection. 11/07/201406/18 Assessment Noted Time PHQ-9 Depression Total Score: 2 12/15/2020 1:07 PM CDT documented as of this encounter Care Teams Paper Steamer Relationship Specialty Start Date End Date Juanis Levi PCP - General Addiction Medicine 06/29/21 [address] [place] [phone] Stephani Pina, Assigned PCP 02/25/21 RECRUITER SPECIALIST MOISTURE METER READER [address] [place], [place] [phone] Elsa Yeh, Registered Nurse Infectious Diseases 07/25/21 RN Rogelio Treadwell Assigned Musculoskeletal 08/04/21 MD August Provider [address] [place] [address] Luis Camara MD Podiatry 08/16/21 CALVIN Burnett [address] [place], [place] [id number] documented as of this encounter
--- OUTSIDE RECORDS SUMMARY | 2021-11-10 00:34 | XMS_ITS | Encounter Summary ---
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 documented as of this encounter Plan of Treatment Upcoming Encounters Date Type Specialty Care Team Description 11/15/2021 Office Visit Wound Care Luis Camara, [place] [address] [place] [address] (Wo rk) documented as of this encounter Visit Diagnoses Not on filedocumented in this encounter Additional Health Concerns Infection Onset Date Last Indicated Resolved Time MRSAComment: Added from external infection. 11/07/2014 05/2 02/2021 Assessment Noted Time PHQ-9 Depression Total Score: 2 12/15/2020 1:07 PM CDT documented as of this encounter Care Teams Software Test Manager Relationship Specialty Start Date End Date Juanis Levi PCP - General Addiction Medicine 06/29/21 [address] [place] [phone] Stephani Pina, Assigned PCP 02/25/21 MANAGER CLINICAL INFORMATICS MINING MANAGER [address] [place], [place] [phone] Elsa Yeh, Registered Nurse Infectious Diseases 07/25/21 RN Rogelio Treadwell Assigned Musculoskeletal 08/04/21 MD August Provider [address] [place], [place] [address] Luis Camara MD Podiatry 08/16/21 CALVIN Burnett [address] [place] [address] documented as of this encounter
--- OUTSIDE RECORDS SUMMARY | 2021-11-10 00:34 | XMS_ITS | Encounter Summary ---
:1980 Author Organization [facility] Address [address] [place] [address] Care Team Providers Name Role Phone Stephani Pina APRN RADIO TIME BUYER Unavailable [phone] Juanis Levi Primary Care Provider Elsa Yeh RN Unavailable Unavailable Rogelio Treadwell MD Unavailable [phone] Luis Camara DPM Unavailable [phone] Camryn Christina MD Unavailable Sintia Lange PA-C Unavailable Reason for Visit Reason Onset Date Comments Erroneous encounter-disregard 08/27/2021 Encounter Details Date Type Department Care Team Description 08/27/2021 Telephone [facility] Unknown Erroneous Dermatology Clinic encounter -disregard [address] Floor [place], [place] [phone] Social History Tobacco Use Types Packs/Day Years [...] at Date Recorded 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 documented as of this encounter Miscellaneous Notes Telephone Encounter - Igor Mclaughlin - 08/27/2021 12:14 PM CDT documented in this encounter Plan of Treatment Upcoming Encounters Date Type Specialty Care Team Description 11/15/2021 Office Visit Wound Care Luis Camara DPM [address] [place] [phone] (Wo rk) documented as of this encounter Visit Diagnoses Not on filedocumented in this encounter Additional Health Concerns Infection Onset Date Last Indicated Resolved Time MRSAComment: Added from external infection. 11/07/2014 05/02/2021 Assessment Noted Time PHQ-9 Depression Total Score: 2 12/15/2020 1:07 PM CDT documented as of this encounter Care Teams Process Laboratory Specialist Relationship Specialty Start Date End Date Juanis Levi PCP - General Addiction Medicine 06/29/21 [address] [place] [phone] Stephani Pina, Assigned PCP 02/25/21 PRODUCTION MACHINIST RADIO TIME BUYER [id number] [id number] Elsa Yeh, Registered Nurse Infectious Diseases 07/25/21 Rogelio Wilson Assigned Musculoskeletal 08/04/21 MD August Provider [address] [place], [place] [phone] Luis Camara MD Podiatry 08/16/21 CALVIN Burnett [address] [place] [address] Camryn Christina Assigned Surgical 09/01/21 09/07/21 MD Lexie Provider [address] [facility] [address] [place] [address] Sintia Lange, Assigned Surgical 09/08/21 PA-C Provider [address] [place] [address] documented as of this encounter
[2021-11-10 00:35] LABS: WBC Urine 0-2 (0-5)
--- OUTSIDE RECORDS SUMMARY | 2021-11-10 00:35 | XMS_ITS | Encounter Summary ---
:1980 Author Organization [facility] Address [address] [place] [id number] Care Team Providers Name Role Phone Stephani Pina APRN W[employer]E COLLECTION DRIVER Unavailable [phone] Juanis Levi Primary Care Provider Elsa Yeh RN Unavailable Unavailable Rogelio Treadwell MD Unavailable [phone] Reason for Visit Auth/Cert Specialty Diagnoses / Procedures Referred By Contact Refer red To Contact Surgery Diagnoses Non-healing surgical wound, subsequent encounter Non-healing surgical wound, subsequent encounter [T81.89XD] [facility] Main Or Procedures HC SPLIT GRFT,HEAD,FAC,HAND,FEET <100SQCM Right ankle split skin graft from right.left thigh [address] [facility] 5th [place] [address] Phone: Fax: Referral ID Status Reason Start Date Expiration Date Visits Requ ested Visits Authorized [id number] 1 1 Encounter Details Date Type Department Care Team Description 08/15/2021 Surgery [facility] Main Camryn Christina t ankle split skin OR Keith Owen MD graft from right thigh [address] [facility] 5th Floor [address] [place] [address] [id number] (Wo rk) Surgery Details Date/Time Status Location OR Service Patient Class Case Case Trauma Class Type Case? 08/15/21 2:20 Posted [facility] OR OR 04 Plastics & Outpatient PM Reconstruction Panel 1 Procedure [facility]RB Anes Op Region Wound Class Commen ts Right ankle split skin graft from right Right General Ankle thigh Surgeon Surgeon Role Service Panel Camryn Christina MD Primary Plastics & Reconstruct ion 1 Special Needs Wound VAC ordered and approved. Please m charles sure patient brings wound vac and all supplies with on DOS. PT CURRENTLY RESID ES AT [facility]: PLEASE CALL [phone] WITH ANY INSTRUCTIONS AND T LIZET CHANGES FOR 08/15 SURGERY. THEY SET UP TRANSPORT ETC. [facility] Admission No charito since beginning of July; Dr. Christina and coordinator message to discuss situation . Per message from coordinator, TCU will do pre-op and COVID test (EK 08/10/21) documented in this encounter Social History Tobacco Use Types Packs/Day Years [...] at Date Recorded Female 01/14/2020 10:57 AM [employer] COVID-19 Exposure Response Date Recorded In the last 10 days, have you been in contact with No / Unsu re 08/15/2021 12:42 PM CDT someone who was confirmed or suspected to have Coronavirus/COVID-19? documented as of this encounter Last Filed Vital Signs Vital Sign Reading Time Taken Comments Blood Pressure 119/83 08/15/2021 3:30 PM CDT Pulse 71 08/15/2021 3:30 PM CDT Temperature 36.4 ??C (97.5 ??F) 08/15/2021 3:30 PM CDT Respiratory Rate 16 08/15/2021 3:30 PM CDT Oxygen Saturation 98% 08/15/2021 3:30 PM CDT Inhaled Oxygen Concentration - - Weight 81.2 kg (179 lb) 08/15/2021 1:01 PM CDT Height 167.6 cm (5' 6) 08/15/2021 1:01 PM CDT Body Mass Index 28.89 08/15/2021 1:01 PM CDT documented in this encounter Discharge Instructions Discharge InstructionsKarthik Case RN - 08/15/2021 1:55 PM CDT Images from the original note were not included. SKIN GRAFT POST-OPERATIVE INSTRUCTIONS Instructions ? Have someone drive you home after surgery and help you at home for 1-2 days. ? Get plenty of rest and follow balanced diet. ? Decreased activity may promote constipation, so you may want to add more raw fruit to your diet, and be sure to increase fluid intake. ? Take pain medication as prescribed. Do not take aspirin or any products containing aspirin unless approved by your surgeon. ? Do not drink alcohol when taking pain medications. ? Even when not taking pain medications, no alcohol for 3 weeks as it causes fluid retention. ? If you are taking vitamins with iron, resume these as tolerated. ? Do not smoke, as smoking delays healing and increases the risk of Complications. Activities ? It depends upon where on your body the skin graft was performed. The area involved should remain immobile to allow proper healing of the graft. ? Do not drive until you are no longer taking narcotics and have been approved to drive by your surgeon. ? No lifting greater than 5-10 pounds for the first 2-3 weeks. Skin Graft Site Care ? Keep the VAC dressing (if used) in place without changing the foam dressing, cannister, or settings until your clinic visit. ? Keep the VAC dressing plugged to the outlet when possible to prevent loss of battery power. ? If the VAC dressing leaks or loses suction, please do not take down the dressing. Rather, try to find the leak and patch it with the adhesive dressing and reseal the suction. If unable to do so, call the clinic or hospital (numbers at the end of this document). ? If a bolster dressing is used instead of the VAC dressing, keep it in place until your clinic visit. Donor Site Care ? Keep the surgical dressing in place until the clinic visit. ? If it leaks, try to reseal it with the adhesive tape provided. Leakage is very common and not worrisome, rather it is a common nuisance. Alternatively, you may wrap the donor site (if on the extremity) with an AMIRAH bandage. ? The donor site will heal in about 1-3 weeks and when no longer weepy, you may start using moisturizing cream on the site twice daily for about 3 months. What to Expect ? Some swelling and bruising ? Slight bleeding ? Pain and soreness at sites When to Call: ? If there is leakage of the VAC dressing or constant beeping from the machine and you cannot take care of it. ? If there is constant major leakage from the donor site and you cannot control it. ? If you have increased swelling or bruising. ? If swelling and redness persist for a few days. ? If you have severe or increased pain not relieved by medication. ? If you have any side effects to medications; such as, rash, nausea, headache, vomiting or constipation. ? If you have an oral temperature over 100.4 degrees. ? If you have any yellowish or greenish drainage from the incisions or notice a foul odor. ? If you develop increased pain in your calves, shortness of breath, or chest pain. ? If you develop any symptoms of concern. For Medical Questions, Please Call: ? [phone], Friday - Friday, 8 a.m. - 4:30 p.m. ? After hours and on weekends, call Hospital Paging at [phone] and ask for the Plastic Surgeon construction area manager. [facility] Home Care Following Anesthesia For 24 hours after surgery: Get plenty of rest. A responsible adult must stay with you for at least 24 hours after you leave [facility]. Do not drive or use heavy equipment. If you have weakness or tingling, don't drive or use heavy equipment until this feeling goes away. Do not drink alcohol. Avoid strenuous or risky activities. Ask for help when climbing stairs. You may feel lightheaded. IF so, sit for a few minutes before standing. Have someone help you get up. If you have nausea (feel sick to your stomach): Drink only clear liquids such as apple juice, gingerale, broth or 7-Up. Rest may also help. Be sure to drink enough fluids. Move to a regular diet as you feel able. You may have a slight fever. Call the doctor if your fever is over 100??F (37.7??C) (taken under thetongue) or lasts longer than 24 hours. You may have a dry mouth, a sore throat, muscle aches or trouble sleeping. These should go away after 24 hours. Do not make important or legal decisions. It is recommended to avoid smoking. Tips for taking pain medications To get the best pain relief possible, remember these points: Take pain medications as directed, before pain becomes severe. Pain medication can upset your stomach: taking it with food may help. Constipation is a common side effect of pain medication. Drink plenty of fluids. Eat foods high in fiber. Take a stool softener if recommended by your doctor or pharmacist. Do not drink alcohol, drive or operate machinery while taking pain medications. Ask about other ways to control pain, such as with heat, ice or relaxation. Tylenol/Acetaminophen Consumption To help encourage the safe use of acetaminophen, the makers of TYLENOL?? have lowered the maximum daily dose for single-ingredient Extra Strength TYLENOL?? (acetaminophen) products sold in the [place] from 8 pills per day (4,000 mg) to 6 pills per day (3,000 mg). The dosing interval has also changed from2 pills every 4-6 hours to 2 pills every 6 hours. If you feel your pain relief is insufficient, you may take Tylenol/Acetaminophen in addition to yournarcotic pain medication. Be careful not to exceed 3,000 mg of Tylenol/Acetaminophen in a 24 hour period from all sources. If you are taking extra strength Tylenol/acetaminophen (500 mg), the maximum dose is 6 tablets in 24hours. If you are taking regular strength acetaminophen (325 mg), the maximum dose is 9 tablets in 24 hours. Call a doctor for any of the following: Signs of infection (fever, growing tenderness at the surgery site, a large amount of drainage or bleeding, severe pain, foul-smelling drainage, redness, swelling). It has been over 8 to 10 hours since surgery and you are still not able to urinate (pass water). Headache for over 24 hours. Numbness, tingling or weakness the day after surgery (if you had spinal anesthesia). Signs of Covid-19 infection (temperature over 100 degrees, shortness of breath, cough, loss of taste/smell, generalized body aches, persistent headache, chills, sore throat, nausea/vomiting/diarrhea) Your doctor is: Dr. Betty Christina, Plastic Surgery: [phone] Or dial [phone] and ask for the resident construction area manager for: Plastics For emergency care, call the: [facility] Emergency Department: [phone] (TTY for hearing impaired: [phone]) documented in this encounter Medications at Time of Discharge Medication Sig Dispensed Refills Start Date End Date acetaminophen (TYLENOL) Take 3 tablets (975 40 tablet 0 325 MG mg) by mouth every 8 tabletIndications: hours as needed for Osteomyelitis of right mild pain ankle, unspecified type (H) aspirin (ASA) 81 MG EC Take 2 tablets (162 60 tablet 0 /0 05/2021 tabletIndications: dvt mg) by mouth daily ppx cholecalciferol 50 MCG Take 1 tablet (50 90 tablet 1 2020 (1999 UT) mcg) by mouth daily tabletIndications: Vitamin D Deficiency clindamycin (CLEOCIN T) Apply topically 2 60 mL 0 08/21 1 % external times daily lotionIndications: monomorphic follicular papules and pustules diclofenac (VOLTAREN) 1 Apply 2 g topically 200 g 0 06/2021 % topical 2 times daily gelIndications: Acute pain of left knee fexofenadine (ELOISE) Take 1 tablet (180 0 07/21 180 MG mg) by mouth daily tabletIndications: as needed for irritant dermatitis allergies folic acid (FOLVITE) 1 Take 1 tablet (1 mg) 90 tablet 1 06/2021 MG tabletIndications: by mouth daily Folate Deficiency Anemia ibuprofen (ADVIL/MOTRIN) Take 1 tablet (200 30 tablet 0 06/2021 200 MG mg) by mouth every 6 tabletIndications: Tooth hours as needed for pain moderate pain (Dental pain) lactulose (CEPHULAC) 20 Take 1 packet (20 g) 60 Units 0 GM packetIndications: by mouth 2 times Constipation daily lidocaine (XYLOCAINE) 4 Apply topically 50 mL 0 022 % external Every Mon, Wed, Fri solutionIndications: Morning pain methocarbamol (ROBAXIN) Take 1 tablet (750 90 tablet 0 06/2021 750 MG mg) by mouth 3 times tabletIndications: daily Osteomyelitis of right ankle, unspecified type (H) miconazole (MICATIN) 2 % Apply topically 2 71 g 0 06/2021 external times daily powderIndications: Fungal rash of trunk mineral oil-hydrophilic Apply topically 0 022 petrolatum (AQUAPHOR) every 4 hours as external ointment needed for dry skin or irritation nicotine (NICODERM CQ) Place 1 patch onto 28 patch 11 12/08 14 MG/24HR 24 hr the skin every 24 patchIndications: hours Nicotine Dependence senna-docusate Take 2 tablets by 30 tablet 0 08/21/2021 (SENOKOT-S/PERICOLACE) mouth 2 times daily 8.6-50 MG tabletIndications: Osteomyelitis of right ankle, unspecified type (H) thiamine (B-1) 100 MG Take 1 tablet (100 30 tablet 0 2021 tabletIndications: mg) by mouth daily Osteomyelitis of right ankle, unspecified type (H) doxycycline hyclate Take 1 capsule (100 18 capsule 0 022 08/30/2021 (VIBRAMYCIN) 100 MG mg) by mouth every capsuleIndications: 12 hours for 9 days infected steroid acne buprenorphine (SUBUTEX) Place 1 tablet (8 90 tablet 0 05/0408/23/2021 8 MG SUBL sublingual mg) under the tongue tabletIndications: 3 times daily Opioid Dependence ceFAZolin 2 Inject 2 g into the 126 Bag 0 07/21/2021 070 06/2021 gIndications: Bacteremia vein every 8 hours clobetasol (TEMOVATE) Apply topically 2 0 07/21/ 022 08/21/2021 0.05 % external times daily Apply to ointmentIndications: left arm rash Corticosteroid-Responsiv e Dermatosis diphenhydrAMINE Take 1 capsule (25 0 07/21/2021 0 08/21/2021 (BENADRYL) 25 MG mg) by mouth every 6 capsuleIndications: hours as needed for Allergic Skin Reaction itching famotidine (PEPCID) 20 Take 20 mg by mouth 0 08/21/2021 MG tabletIndications: 2 times daily Gastroesophageal Reflux Disease folic acid (FOLVITE) 1 Take 1 tablet (1 mg) 90 tablet 1 08/21/2021 MG tabletIndications: by mouth daily Folate Deficiency Anemia gabapentin (NEURONTIN) Take 3 capsules (300 30 capsule 0 06/202108/23/2021 100 MG mg) by mouth At capsuleIndications: Bedtime Neuropathic Pain gabapentin (NEURONTIN) Take 3 capsules (300 0 05/202108/21/2021 100 MG mg) by mouth At capsuleIndications: Bedtime Neuropathic Pain hydrOXYzine (ATARAX) 25 Take 1 tablet (25 30 tablet 0 08/2109/27/2021 MG tabletIndications: mg) by mouth At Anxiety, Pruritus Bedtime hydrOXYzine (ATARAX) 25 Take 1 tablet (25 0 07/2108/21/2021 MG tabletIndications: mg) by mouth At Anxiety, Pruritus Bedtime hydrOXYzine (ATARAX) 25 Take 1 tablet (25 0 07/0908/21/2021 MG tabletIndications: mg) by mouth every 6 Osteomyelitis of right hours as needed for ankle, unspecified type other or anxiety (H) (adjuvant pain) lactulose (CEPHULAC) 20 Take 20 g by mouth 2 0 08/21/2021 GM packetIndications: times daily Constipation levothyroxine Take 1 tablet (125 90 tablet 1 01/07/202008/2021 (SYNTHROID/LEVOTHROID) mcg) by mouth every 125 MCG morning tabletIndications: Hypothyroidism magnesium oxide (MAG-OX) Take 400 mg by mouth 0 08/21/2021 400 MG 2 times daily tabletIndications: Hypomagnesemia methocarbamol (ROBAXIN) Take 1 tablet (750 0 06/1808/21/2021 750 MG mg) by mouth 3 times tabletIndications: daily Osteomyelitis of right ankle, unspecified type (H) ondansetron (ZOFRAN ODT) Take 1 tablet (4 mg) 4 tablet 0 0 08/15/2021 08/21/2021 4 MG ODT tabIndications: by mouth every 8 Non-healing surgical hours as needed for wound, subsequent nausea encounter oxyCODONE (ROXICODONE) 5 Take 1-2 tablets 15 tablet 0 08/1508/21/2021 MG tabletIndications: (5-10 mg) by mouth Non-healing surgical every 6 hours as wound, subsequent needed for moderate encounter to severe pain oxyCODONE (ROXICODONE) 5 Take 1-2 tablets 40 tablet 0 07/2108/21/2021 MG tabletIndications: (5-10 mg) by mouth Acute Pain, Chronic Pain every 6 hours as needed for moderate to severe pain polyethylene glycol Take 17 g by mouth 0 07/10/19 22 08/21/2021 (MIRALAX) 17 g daily as needed for packetIndications: constipation Constipation senna (SENOKOT) 8.6 MG Take 2 tablets by 0 08/21/2021 tabletIndications: mouth 2 times daily Constipation senna-docusate Take 1-2 tablets by 30 tablet 0 08/15/2021 0 08/21/2021 (SENOKOT-S/PERICOLACE) mouth 2 times daily 8.6-50 MG tabletIndications: Non-healing surgical wound, subsequent encounter senna-docusate Take 2 tablets by 0 07/09/202106/2021 (SENOKOT-S/PERICOLACE) mouth 2 times daily 8.6-50 MG tabletIndications: Osteomyelitis of right ankle, unspecified type (H) thiamine (B-1) 100 MG Take 1 tablet (100 0 202108/21/2021 tabletIndications: mg) by mouth daily Osteomyelitis of right ankle, unspecified type (H) triamcinolone (KENALOG) Apply topically 2 0 07/2108/21/2021 0.1 % external times daily Apply to ointmentIndications: rash areas other Dermatitis than L arm venlafaxine (EFFEXOR-XR) Take 1 capsule (150 30 capsule 1 08/23/2021 150 MG 24 hr mg) by mouth daily capsuleIndications: Generalized Anxiety Disorder documented as of this encounter Progress Notes Karthik Case RN - 08/15/2021 4:08 PM CDT Report given to GENARO Rooney at [facility]. Camryn Christina MD - 08/15/2021 1:55 PM CDT No change in History and Physical since the last visit. I went over the planned procedure in detail today. All risks, benefits and alternatives were explained in detail again. All questions were answered. The patient understood the plan and all that was discussed and wants to proceed with the planned procedure today. The patient understands the team approach to care in the operating room and agrees to the procedure as such. The patient has been cleared by medicine for this procedure and all laboratory tests are stable. documented in this encounter Miscellaneous Notes Op Note - Camryn Christina MD - 08/15/2021 3:24 PM CDT Procedure Date: 08/15/2021 PREOPERATIVE DIAGNOSIS: Right ankle wound requiring skin graft. POSTOPERATIVE DIAGNOSIS: Right ankle wound requiring skin graft. PROCEDURE: Split-thickness skin graft from right thigh to right ankle with VAC dressing, dimensions 4 x 4 cm. SURGEON: Betty Christina MD. RESIDENT: Christiano Santacruz. ANESTHESIA: General anesthesia, LMA. COMPLICATIONS: Nil. DRAINS: Nil. SPECIMENS: Nil. BLOOD LOSS: 1 mL. DESCRIPTION OF PROCEDURE: After informed consent was taken from the patient, the proper site and procedure was ascertained with her and she was appropriately marked, she was taken to the operating room. She was placed in supine position with the knees comfortably flexed, pillows underneath them and a left pneumoboot placed and running prior to induction of anesthesia. Preoperative antibiotics were given in the OR. All pressure points were appropriately padded. General anesthesia was administered without any complications. Her right leg and thigh were prepped and draped in the standard surgical fashion. On evaluation of her right lateral ankle, she had a 4 x 4 cm granulating clean wound. We went ahead and marked out the harvest site from the right lateral thigh. A 0.014-inch split thickness skin graft was harvested, meshed in a 1.5:1 manner. The right ankle wound was then prepared for skin graft by using a curette to curettage the biofilm and granulation irrigation flume layer. Hemostasis was ensured, and the skin graft was placed and stapled into position. Aquacel Ag and a Tegaderm were placed over the right thigh donor site. The skin graft was covered with Xeroform and a VAC dressing, wrapped with an Acewrap and a Cam boot placed. The patient tolerated the procedure well. All counts were correct at theend of the case. The patient was extubated and sent to recovery room in stable condition. Camryn Christina MD MT: [id number] Name: STEPHANI REDDY Account: [id number] : 1980 Procedure Date: 08/15/2021 Document: [id number] Brief Op Note - Christiano Santacruz MD - 08/15/2021 3:24 PM CDT [facility] Brief Operative Note Pre-operative diagnosis: Non-healing surgical wound, subsequent encounter [T81.89XD] Post-operative diagnosis Same as pre-operative diagnosis Procedure: Procedure(s): Right ankle split skin graft from right thigh Surgeon: Surgeon(s) and Role: * Camryn Christina MD - Primary Anesthesia: General Estimated Blood Loss: 1cc Drains: Wound Vac Specimens: * No specimens in log * Findings: None. Procedure as stated, placed 1 black sponge and xeroform gauze over grafted wounded. Donor site covered with Aquacell-ag and tegaderm Complications: None. Implants: * No implants in log * TRISTEN Panchal, MS Plastic Surgery, PGY-2 documented in this encounter Plan of Treatment Upcoming Encounters Date Type Specialty Care Team Description 11/15/2021 Office Visit Wound Care Talha Luis Lex, DPCamryn [address] [place] [address] (Wo rk) documented as of this encounter Procedures Procedure Name Priority Date/Time Associated Diagnosis Comme nts SURGICAL PROCUREMENT, 08/15/2021 2:16 PM CDT Non-heali ng surgical GRAFT, SKIN, wound, subsequent SPLIT-THICKNESS, encounter EXTREMITY Special Needs Wound VAC ordered and approv ed. Please make sure patient brings wound vac and all supplies with on DOS. [facility] PLEASE CALL [phone] WITH ANY I NSTRUCTIONS AND TIME CHANGES FOR 08/15 SURGERY. THEY SET UP TRANSPORT ETC. [facility] Admission Notes since beginning of July; Dr. hCristina and coordinator message to d krish situation. Per message from coordinator, TCU will do pre-op and COVID charito t (EK 08/10/21) documented in this encounter Visit Diagnoses Diagnosis Non-healing surgical wound, subsequent e ncounter - Primary Non-healing surgical wound, subsequent e ncounter documented in this encounter Admitting Diagnoses Diagnosis Non-healing surgical wound, subsequent e ncounter documented in this encounter Administered Medications Inactive Administered Medications - up to 3 most recent administrations Medication Order MAR Action Action Date Dose Rate Site acetaminophen (TYLENOL) tablet 975 Given 08/15/2021 1:47 PM CDT 975 mg mg 975 mg, Oral, ONCE, On Fri08/15/21 at 1330, For 1 dose, Maximum acetaminophen dose from all sources = 75 mg/kg/day not to exceed 4 grams/day., Pre-procedure EPINEPHrine PF (ADRENALIN) injection Given 08/15/2021 3:09 PM CDT 1 mL PRN, Starting on Fri08/15/21 at 1509, Intra-procedure lactated ringers infusion New Bag 08/15/2021 2:31 PM CDT at 100 mL/hr, Intravenous, CONTINUOUS, Pre-procedure, Starting on Fri08/15/21 at 1330, Until Fri08/15/21 at 1516 New Bag 08/15/2021 1:47 PM CDT 100 mL/hr mineral oil light external liquid Given 08/15/2021 3:00 PM CDT 10 mLs PRN, Starting on Fri08/15/21 at 1500, Intra-procedure oxyCODONE (ROXICODONE) tablet 5 mg Given 08/15/2021 3:54 PM CDT 5 mg 5 mg, Oral, EVERY 4 HOURS PRN, moderate to severe pain, Starting on Fri08/15/21 at 1516, Max: 5 mg for opioid-na??ve patient., PACU/Phase II documented in this encounter Additional Health Concerns Infection Onset Date Last Indicated Resolved Time MRSAComment: Added from external infection. 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
--- OUTSIDE RECORDS SUMMARY | 2021-11-10 00:35 | XMS_ITS | Encounter Summary ---
:1980 Author Organization [facility] Address [address] [place] [address] Care Team Providers Name Role Phone Stephani Pina APRN FIRE EQUIPMENT OPERATOR Unavailable Juanis Levi Primary Care Provider Elsa Yeh RN Unavailable Unavailable Reason for Visit Diagnostic Imaging XR (Routine) - Pending Review Specialty Diagnoses / Procedures Referred By Contact Refer red To Contact Diagnoses Ankle pain Rogelio Treadwell MD Procedures XR Ankle Right G/E 3 Views [address] [place], [place] [address] Referral ID Status Reason Start Date Expiration Date Visits V isits Requested Authorized [id number] Pending 07/31/2021 07/31/2022 1 1 Review Encounter Details Date Type Department Care Team Description 07/31/2021 Ancillary Procedure [facility] Rogelio Treadwell nkle pain Orthopedic Xray MD August [place] [address] [facility] [address] [place], [place] 4th Floor [address] [place], [place] [phone] (Wo rk) [address] [phone] Social History Tobacco Use Types Packs/Day Years Used Date Current Every Day Smoker Cigarettes 0.25 10 Smokeless Tobacco: Never Used Comments: 5-8 cigarettes a day Alcohol Use Standard Drinks/Week Comments Not Currently 0 (1 standard drink = 0.6 oz pure alcoho l) sober since 08/2020 Alcohol Habits Answer Date Recorded How often do you have a drink containing alcohol? Not asked 05/31/2020 How many drinks containing alcohol do you have on a Not aske d 05/31/2020 typical day when you are drinking? How often do you have six or more drinks on one Not asked 05/31/2020 occasion? Comment: sober since 08/202010/25/2020 Sex Assigned at Date Recorded Female 01/14/2020 10:57 AM SUPERVISOR TELLERS COVID-19 Exposure Response Date Recorded In the last 10 days, have you been in contact with No / Unsu re 07/31/2021 1:25 PM CDT someone who was confirmed or suspected to have Coronavirus/COVID-19? documented as of this encounter Plan of Treatment Upcoming Encounters Date Type Specialty Care Team Description 11/15/2021 Office Visit Wound Care Luis Camara, [place] [address] [place] [address] (Wo rk) documented as of this encounter Procedures Procedure Name Priority Date/Time Associated Diagnosis Comme nts XR ANKLE RIGHT G/E Routine 07/31/2021 1:55 PM Ankle pain Res ults for this 3 VIEWS CDT procedure are i n the results section. documented in this encounter Results XR Ankle Right G/E 3 Views (07/31/2021 1:55 PM CDT) Anatomical Region Laterality Modality Ankle, Left Ankle Right Computed Radiography Specimen (Source) Anatomical Location Collection Method / Collectio n Time Received Time / Laterality Volume Impressions 07/31/2021 2:36 PM CDT Impression: 1. Progressive destructive changes of th e distal tibia, fibula and talus consistent with history of osteomy elitis. 2. Soft tissue swelling about the ankle improved from prior exam. I have personally reviewed the examinati on and initial interpretation and I agree with the findings. BYRON PIMENTEL MD Narrative 07/31/2021 2:36 PM CDT 3 views right ankle radiographs 07/31/2021 1:55 PM History: Ankle pain Additional History from EMR: 40-year-old woman with a complex medical history including opioid and alcohol use disorders. Admitted on 07/06/2021 for right ankle osteomyelitis. Patient is status post calcaneal hardware removal and I&D x3. Comparison: MR 06/29/2021, radiographs 01/2022. Findings: Nonweightbearing AP, oblique, and latera l ??views of the right ankle were obtained. Progressive destructive changes of dista l tibia, fibula and talus consistent with history of osteomyelitis PA. Postoperative changes consistent with calcaneal hardware remov al with visible screw tracks in the calcaneal tuberosity and anterior process. Joints of the midfoot are congruent. Mil d degenerative changes. Ankle mortise and syndesmosis are grossl y congruent on this non-weight bearing images. Soft tissue swelling about the ankle, im proved as compared to radiographs 06/28/2021. Procedure Note Byron Pimentel MD - 07/31/2021Forma tting of this note might be different from the original. 3 views right ankle radiographs 2 1:55 PM History: Ankle pain Additional History from EMR: 40-year-old woman with a complex medical history including opioid and alcohol use disorders. Admitted on 07/06/2021 for right ankle osteomyelitis. Patient is status post calcaneal hardware removal and I&D x3. Comparison: MR 06/29/2021, radiographs 01/2022. Findings: Nonweightbearing AP, oblique, and latera l views of the right ankle were obtained. Progressive destructive changes of dista l tibia, fibula and talus consistent with history of osteomyelitis PA. Postoperative changes consistent with calcaneal hardware remov al with visible screw tracks in the calcaneal tuberosity and anterior process. Joints of the midfoot are congruent. Mil d degenerative changes. Ankle mortise and syndesmosis are grossl y congruent on this non-weight bearing images. Soft tissue swelling about the ankle, im proved as compared to radiographs 06/28/2021. Impression: 1. Progressive destructive changes of th e distal tibia, fibula and talus consistent with history of osteomy elitis. 2. Soft tissue swelling about the ankle improved from prior exam. I have personally reviewed the examinati on and initial interpretation and I agree with the findings. BYRON PIMENTEL MD Rogelio Treadwell MD IMG DIAGNOSTIC IMAGING ORDER JEFFERY documented in this encounter Visit Diagnoses Diagnosis Ankle pain Pain in joint, ankle and foot documented in this encounter Additional Health Concerns Infection Onset Date Last Indicated Resolved Time MRSAComment: Added from external infection. 11/07/2014 05/02/2021 Assessment Noted Time PHQ-9 Depression Total Score: 2 12/15/2020 1:07 PM CDT documented as of this encounter Care Teams Tail Board Worker Relationship Specialty Start Date End Date Juanis Levi PCP - General Addiction Medicine 06/29/21 [facility] [place] [phone] Stephani Pina APRN FIRE EQUIPMENT OPERATOR Assigned PCP 02/25/[address] [place] [address] Elsa Yeh, RN Registered Nurse Infectious Diseases 07/25/21 documented as of this encounter
--- OUTSIDE RECORDS SUMMARY | 2021-11-10 00:35 | XMS_ITS | Encounter Summary ---
:1980 Author Organization [facility] Address [address] [place] [address] Care Team Providers Name Role Phone Stephani Pina APRN SUPERVISOR CUSTOMER RECORDS DIVISION Unavailable [phone] Juanis Levi Primary Care Provider Elsa Yeh RN Unavailable Unavailable Encounter Details Date Type Department Care Team Description 07/31/2021 Travel Social History Tobacco Use Types Packs/Day [...] at Date Recorded Female 01/14/2020 10:57 AM HORSE GROOMER COVID-19 Exposure Response Date Recorded In the last 10 days, have you been in contact with No / Unsu re 07/31/2021 1:25 PM CDT someone who was confirmed or suspected to have Coronavirus/COVID-19? documented as of this encounter Plan of Treatment Upcoming Encounters Date Type Specialty Care Team Description 11/15/2021 Office Visit Wound Care Luis Camara DPM [address] [place] [address] (Wo rk) documented as of this encounter Visit Diagnoses Not on filedocumented in this encounter Additional Health Concerns Infection Onset Date Last Indicated Resolved Time MRSAComment: Added from external infection. 11/07/2014 05/02/2021 Assessment Noted Time PHQ-9 Depression Total Score: 2 12/15/2020 1:07 PM CDT documented as of this encounter Care Teams Eyeglass Inspector Relationship Specialty Start Date End Date Juanis Levi PCP - General Addiction Medicine 06/29/21 [address] [place] [phone] Stephani Pina, FARZANA SUPERVISOR CUSTOMER RECORDS DIVISION Assigned PCP 02/25/21 [address] [place] [address] Elsa Yeh, RN Registered Nurse Infectious Diseases 07/25/21 documented as of this encounter
--- OUTSIDE RECORDS SUMMARY | 2021-11-10 00:35 | XMS_ITS | Encounter Summary ---
:1980 Author Organization [facility] Address [address] [place] [address] Care Team Providers Name Role Phone Stephani Pina APRN ONCOLOGY SOCIAL WORKER Unavailable [phone] Juanis Levi Primary Care Provider Elsa Yeh RN Unavailable Unavailable Rogelio Treadwell MD Unavailable [phone] Encounter Details Date Type Department Care Team Description 08/15/2021 Travel Social History Tobacco Use Types Packs/Day [...] at Date Recorded Female 01/14/2020 10:57 AM CASE LINER COVID-19 Exposure Response Date Recorded In the last 10 days, have you been in contact with No / Unsu re 08/15/2021 12:42 PM CDT someone who was confirmed or suspected to have Coronavirus/COVID-19? documented as of this encounter Plan of Treatment Upcoming Encounters Date Type Specialty Care Team Description 11/15/2021 Office Visit Wound Care Luis Camara, [place] [address] [place], [place] [phone] (Wo rk) documented as of this encounter Visit Diagnoses Not on filedocumented in this encounter Additional Health Concerns Infection Onset Date Last Indicated Resolved Time MRSAComment: Added from external infection. 11/07/2014 05/02/2021 Assessment Noted Time PHQ-9 Depression Total Score: 2 12/15/2020 1:07 PM CDT documented as of this encounter Care Teams Human Resources Project Coordinator Relationship Specialty Start Date End Date Juanis Levi PCP - General Addiction Medicine 06/29/21 [facility] [place] [phone] Stephani Pina, Assigned PCP 02/25/21 REPAIRER MAINTENANCE BUILDING ONCOLOGY SOCIAL WORKER [address] [address] Elsa Yeh, Registered Nurse Infectious Diseases 07/25/21 RN Rogelio Treadwell Assigned Musculoskeletal 08/04/21 MD August Provider [address] [place] [address] documented as of this encounter
--- OUTSIDE RECORDS SUMMARY | 2021-11-10 00:35 | XMS_ITS | Encounter Summary ---
:1980 Author Organization [facility] Address [address] [place] [address] Care Team Providers Name Role Phone Stephani Pina APRN INSIDE SALES PERSON Unavailable [phone] Juanis Levi Primary Care Provider Elsa Yeh RN Unavailable Unavailable Rogelio Treadwell MD Unavailable [phone] Reason for Visit Auth/Cert Specialty Diagnoses / Procedures Referred By Contact Refer red To Contact Surgery Diagnoses Non-healing surgical wound, subsequent encounter Non-healing surgical wound, subsequent encounter [T81.89XD] [facility] Procedures HC SPLIT GRFT,HEAD,FAC,HAND,FEET <100SQCM Right ankle split skin graft from right.left thigh [address] [address] Phone: Fax: Referral ID Status Reason Start Date Expiration Date Visits Requ ested Visits Authorized [id number] 1 1 Encounter Details Date Type Department Care Team Description 08/15/2021 Anesthesia Event [facility] Karen Garnett MD [address] [facility] [address] [place] [address] OR Roosevelt Faye MD [address] [place] [address] [phone] Anesthesia Record Procedure Summary Procedure Name Responsible Anesthesia Start Anesthesia Stop Time Anesthesiologist Time Right ankle split Juanis Garnett MD 08/15/21 1431 08/15/21 15 27 skin graft from right thigh (Right Ankle) Events Date Time Event Comment 08/15/2021 1431 An Start 1434 An Start Data 1439 An Induction 1441 An LMA 1501 AN INCISION 1527 LMA Removed 1527 an stop data 1527 An Stop Electronically s igned by Rubia Pina APRN CRNA on August 15, 2021 3: 27 PM Name Total midazolam 1 mg/mL 2 mg fentaNYL 50 mcg/mL 100 mcg lidocaine 2% 80 mg propofol 10 mg/mL 250 mg propofol infusion (mcg/kg/min) 570.43 mg glycopyrrolate 0.2 mg/mL 0.2 mg dexamethasone 4 mg/mL 4 mg ondansetron 2 mg/mL 4 mg ketamine injection 10 mg/mL 20 mg ceFAZolin (ANCEF) intermittent infusion 2 g in 100 mL dextrose PRE-MIX 2 g dexmedetomidine (PRECEDEX) in NS syringe (4 mcg/mL) 8 mcg lactated ringers infusion 400 mL Agents Name NO HELIOX O2 N2O Air Exp Sevoflurane Exp Isoflurane Exp Desflurane Exp N2O Ins Sevoflurane Ins Isoflurane Ins Desflurane O2 Auxiliary Blood No blood administrations on file. Lines, Drains, and Airways Type Details Placement Removal Incision/Surgical Site 08/15/21; 1503; 08/15/21 1503 by Right; Leg; Kevin Chand Holli, GENARO Tegaderm Negative Pressure Wound 08/15/21; 1515; 08/15/21 1515 by Therapy Christiano Rojas; Foot; Sanjuana Brown RN Right (Outer right ankle) Peripheral IV 08/13/21; 1622; 22 G; 08/13/21 1622 by 08/17/21 1800 by B Villafuerte; Cristian, Raisa Santana RN Abellan o, Diana Right; Lower forearm; Allie Mendoza RN Chlorhexidine, Skin Barrier; None; 1; Tolerated well Brace/Orthotic/Orthosis 08/15/21; lower, 08/15/21 0000 by 1719 by right; leg; other Liza Lloyd, Bj moffett, Nurse (see comments) (ROWAN bond); 08/22/21; 1719 Supraglottic Airway Placement Date: 08/15/21 1426 by 08/15/21 by 08/15/21; Placement Rubia Pina, Km Pina, Time: 1426 BENCH ASSEMBLER BATTERY OIL DISPATCHER BENCH ASSEMBLER BATTERY OIL DISPATCHER documented in this encounter Social History Tobacco [...] at Date Recorded Female 01/14/2020 10:57 AM INTERMEDIATE CARD TENDER COVID-19 Exposure Response Date Recorded In the last 10 days, have you been in contact with No / Unsu re 08/15/2021 12:42 PM CDT someone who was confirmed or suspected to have Coronavirus/COVID-19? documented as of this encounter OR Notes Anesthesia Postprocedure Evaluation - Juanis Garnett MD - 08/15/2021 5:13 PM CDT Patient: Stephani King Procedure: Procedure(s): Right ankle split skin graft from right thigh Anesthesia Type: General Note: Disposition: Outpatient Postop Pain Control: Uneventful Sign Out: Well controlled pain PONV: No Neuro/Psych: Uneventful Sign Out: Acceptable/Baseline neuro status Airway/Respiratory: Uneventful Sign Out: Acceptable/Baseline resp. status CV/Hemodynamics: Uneventful Sign Out: Acceptable CV status; No obvious hypovolemia; No obvious fluid overload Other NRE: NONE DID A NON-ROUTINE EVENT OCCUR? No Event details/Postop Comments: Doing well. Alert, oriented. No sore throat, nausea, or problems with pain control. Patient denies any concerns. Last vitals: Vitals Value Taken Time BP 123/86 08/15/21 1556 Temp 36.5 ??C (97.7 ??F) 08/15/21 1556 Pulse 81 08/15/21 1556 Resp 16 08/15/21 1556 SpO2 94 % 08/15/21 1556 Electronically Signed By: Juanis Garnett MD August 15, 2021 5:13 PM Anesthesia Preprocedure Evaluation - Juanis Garnett MD - 08/15/2021 2:01 PM CDT Anesthesia Pre-Procedure Evaluation Patient: Stephani King : 1980 Procedure : Procedure(s): Right ankle split skin graft from right.left thigh Past Medical History: Diagnosis Date ??? Alcohol use disorder, severe, dependence (H) ??? Anxiety ??? Chronic hepatitis C (H) 2017 no treatment history; normal transaminases 10/2019 ??? Depressive disorder ??? Hypothyroid ??? Opioid use disorder, severe, in sustained remission, on maintenance therapy (H) Past Surgical History: Procedure Laterality Date ??? BREAST SURGERY ABcess drained ??? SECTION ??? SECTION, IMMEDIATE HYSTERECTOMY, COMBINED N/A 12/24/2016 Procedure: COMBINED SECTION, IMMEDIATE HYSTERECTOMY; Section Immediate Hysterectomy, Bilateral Salpingectomy and Cystoscopy. Baby Boy born at 20:05; Surgeon: So Luciano MD; Location: [facility] OR ??? VALET RUNNER SURGERY ??? IRRIGATION AND DEBRIDEMENT FOOT, COMBINED Right 07/07/2021 Procedure: IRRIGATION AND DEBRIDEMENT, FOOT and ankle, wound vac exchange; Surgeon: Eliud Olivera MD; Location: [facility] OR ??? ORTHOPEDIC SURGERY ??? THORACIC SURGERY No Known Allergies Social History Tobacco Use ??? Smoking status: Former Smoker Packs/day: 0.25 Years: 10.00 Pack years: 2.50 Types: Cigarettes ??? Smokeless tobacco: Never Used ??? Tobacco comment: 5-8 cigarettes a day (hasn't smoked since in transitional care 07/23/21) Substance Use Topics ??? Alcohol use: Not Currently Comment: sober since 05/08 Wt Readings from Last 1 Encounters: 07/23/21 81.4 kg (179 lb 8 oz) Anesthesia Evaluation Pt has had prior anesthetic. Type: General. No history of anesthetic complications ROS/MED HX ENT/Pulmonary: (+) tobacco use (quite 6 weeks ago), Past use, (-) asthma, COPD and recent URI Neurologic: Cardiovascular: (-) GARCIA, orthopnea/PND and syncope METS/Exercise Tolerance: >4 METS Comment: Prior to foot issues ~1.5mo ago, was doing laundry and carrying it up 2 flights of stairs without issues Hematologic: Musculoskeletal: GI/Hepatic: (+) liver disease, (-) GERD Renal/Genitourinary: Endo: (+) thyroid problem, hypothyroidism, Psychiatric/Substance Use: (+) H/O chronic opiod use (Subutex 8mg TID - took 6AM dose). Infectious Disease: Malignancy: Other: Physical Exam Airway Mallampati: I TM distance: > 3 FB Neck ROM: full Mouth opening: > 3 cm Respiratory Devices and Support Dental Comment: Very poor dentition - almost all teeth appear broken (most down to the roots). Patient denies any loose teeth. (+) missing and chipped Cardiovascular Rhythm and rate: regular and normal Pulmonary breath sounds clear to auscultation OUTSIDE LABS: CBC: Lab Results Component Value Date WBC 5.1 08/13/2021 WBC 5.0 08/06/2021 HGB 10.1 (L) 08/13/2021 HGB 10.4 (L) 08/06/2021 HCT 31.0 (L) 08/13/2021 HCT 31.4 (L) 08/06/2021 PLT 116 (L) 08/13/2021 PLT 108 (L) 08/06/2021 BMP: Lab Results Component Value Date NA 141 08/13/2021 NA 142 08/09/2021 POTASSIUM 3.8 08/13/2021 POTASSIUM 3.9 08/09/2021 CHLORIDE 109 08/13/2021 CHLORIDE 109 08/09/2021 CO2 26 08/13/2021 CO2 28 08/09/2021 BUN 9 08/13/2021 BUN 6 (L) 08/09/2021 CR 0.31 (L) 08/13/2021 CR 0.43 (L) 08/09/2021 GLC 136 (H) 08/13/2021 GLC 101 (H) 08/09/2021 COAGS: Lab Results Component Value Date PTT 36 07/06/2021 INR 1.39 (H) 07/06/2021 FIBR 398 12/25/2016 POC: Lab Results Component Value Date HCG Negative 01/11/2020 HCGS Negative 08/23/2018 HEPATIC: Lab Results Component Value Date ALBUMIN 2.5 (L) 07/17/2021 PROTTOTAL 8.1 07/17/2021 ALT 42 07/17/2021 AST 56 (H) 07/17/2021 GGT 1,700 (H) 01/13/2020 ALKPHOS 157 (H) 07/17/2021 BILITOTAL 0.7 07/17/2021 OTHER: Lab Results Component Value Date PH 7.35 12/24/2016 MACARENA 8.8 08/13/2021 PHOS 4.8 (H) 07/07/2021 MAG 2.1 07/07/2021 LIPASE 145 02/28/2019 TSH 0.76 07/25/2021 CRP 3.1 08/13/2021 SED 102 (H) 07/08/2021 Anesthesia Plan ASA Status: 2 NPO Status: NPO Appropriate Anesthesia Type: General. - Airway: LMA Consents Anesthesia Plan(s) and associated risks, benefits, and realistic alternatives discussed. Questions answered and patient/client relations representative(s) expressed understanding. - Discussed: - Discussed with: Patient Postoperative Care Pain management: Oral pain medications, IV analgesics. PONV prophylaxis: Ondansetron (or other 5HT-3), Dexamethasone or Solumedrol, Background Propofol Infusion Comments: Other Comments: Discussed poor dentition (most teeth are broken, many down to the roots) & increased risk of dental injury - patient understands and wishes to proceed. Discussed risks of general anesthesia, including aspiration pneumonia, sore throat/hoarse voice, abrasions/damage to lips/tongue/teeth, nausea, rare complications (including medication reactions, cardiac, pulmonary, hypoxia/low oxygen, recall). Ensured understanding, invited questions and all questions were answered. Patient wishes to proceed. H&P reviewed: Unable to attach H&P to encounter due to EHR limitations. H&P Update: appropriate H&P reviewed, patient examined. No interval changes since H&P (within 30 days). Juanis Garnett MD documented in this encounter Miscellaneous Notes Anesthesia Care Transfer Note - Rubia Pina APRN CRNA - 08/15/2021 3:34 PM CDT Patient: Stephani King Procedure: Procedure(s): Right ankle split skin graft from right thigh Diagnosis: Non-healing surgical wound, subsequent encounter [T81.89XD] Diagnosis Additional Information: No value filed. Anesthesia Type: General Note: Oropharynx: oral airway in place Level of Consciousness: drowsy Oxygen Supplementation: face mask Independent Airway: airway patency satisfactory and stable Dentition: dentition unchanged Vital Signs Stable: post-procedure vital signs reviewed and stable Report to RN Given: handoff report given Patient transferred to: PACU Handoff Report: Identifed the Patient, Identified the Reponsible Provider, Reviewed the pertinent medical history, Discussed the surgical course, Reviewed Intra-OP anesthesia mangement and issues during anesthesia, Set expectations for post-procedure period and Allowed opportunity for questions and acknowledgement of understanding Vitals: Vitals Value Taken Time BP 119/83 08/15/21 1530 Temp 36.4 ??C (97.5 ??F) 08/15/21 1530 Pulse 71 08/15/21 1530 Resp 16 08/15/21 1530 SpO2 98 % 08/15/21 1530 Electronically Signed By: Rubia Pina APRN CRNA August 15, 2021 3:34 PM documented in this encounter Plan of Treatment Upcoming Encounters Date Type Specialty Care Team Description 11/15/2021 Office Visit Wound Care Luis Camara DPM [address] [place] [address] (Wo rk) documented as of this encounter Visit Diagnoses Not on filedocumented in this encounter Administered Medications Inactive Administered Medications - up to 3 most recent administrations Medication Order MAR Action Action Date Dose Rate Site ceFAZolin (ANCEF) intermittent New Bag 08/21/2021 4:59 PM CDT 2 g 200 mL/hr infusion 2 g in 100 mL dextrose PRE-MIX [place], 2 g, Intravenous, EVERY 8 HOURS, First dose on Fri07/23/21 at 1700, For 88 doses, Indications: Bacteremia, Osteomyelitis New Bag 08/21/2021 8:08 AM CDT 2 g 200 mL/hr New Bag 08/21/2021 1:04 AM CDT 2 g 200 mL/hr dexamethasone (DECADRON) injection Given 08/15/2021 2:53 PM CDT 4 mg Intravenous, PRN, Administer over 1 Minutes, Starting on Fri08/15/21 at 1453, Anesthesia Intra-op dexmedetomidine (PRECEDEX) 4 mcg/mL in NS Given 08/15/2021 3:03 PM CDT 8 mcg PRE-MIX Intravenous, PRN, Starting on Fri08/15/21 at 1503, Anesthesia Intra-op fentaNYL (PF) (SUBLIMAZE) injection Given 08/15/2021 2:37 PM CDT 50 mcg Intravenous, PRN, Administer over 3-5 Minutes, Starting on Fri08/15/21 at 1435, Anesthesia Intra-op Given 08/15/2021 2:35 PM CDT 50 mcg glycopyrrolate (ROBINUL) injection Given 08/15/2021 2:52 PM CDT 0.2 mg Intravenous, PRN, Administer over 1-2 Minutes, Starting on Fri08/15/21 at 1452, Anesthesia Intra-op ketamine (KETALAR) injection Given 08/15/2021 2:45 PM CDT 20 mg Intravenous, PRN, Administer over 2-5 Minutes, Starting on Fri08/15/21 at 1445, Anesthesia Intra-op lactated ringers infusion New Bag 08/15/2021 2:31 PM CDT at 100 mL/hr, Intravenous, CONTINUOUS, Pre-procedure, Starting on Fri08/15/21 at 1330, Until Fri08/15/21 at 1516 New Bag 08/15/2021 1:47 PM CDT 100 mL/hr lidocaine 2% injection (MDV) Given 08/15/2021 2:39 PM CDT 80 mg Intravenous, PRN, Starting on Fri08/15/21 at 1439, Anesthesia Intra-op midazolam (VERSED) injection Given 08/15/2021 2:36 PM CDT 2 mg Intravenous, Administer over 2 Minutes, PRN, Starting on Fri08/15/21 at 1436, Anesthesia Intra-op ondansetron (ZOFRAN) injection Given 08/15/2021 2:53 PM CDT 4 mg Intravenous, PRN, Administer over 2-5 Minutes, Starting on Fri08/15/21 at 1453, Anesthesia Intra-op propofol (DIPRIVAN) injection 10 mg/mL v ial Given 08/15/2021 3:03 PM CDT 50 mg Intravenous, PRN, Starting on Fri08/15/21 at 1439, Anesthesia Intra-op Given 08/15/2021 2:40 PM CDT 50 mg Given 08/15/2021 2:39 PM CDT 150 mg propofol (DIPRIVAN) Rate/Dose Change 08/15/2021 3:13 75 mcg/kg/min 36 .54 mL/hr injection 10 mg/mL vial PM CDT Intravenous, CONTINUOUS PRN, Starting on Fri08/15/21 at 1439, Anesthesia Intra-op New Bag 08/15/2021 2:39 PM CDT 200 mcg/kg/min 97.44 mL/hr documented in this encounter Additional Health Concerns Infection Onset Date Last Indicated Resolved Time MRSAComment: Added from external infection. 11/07/201406/18 Assessment Noted Time PHQ-9 Depression Total Score: 2 12/15/2020 1:07 PM CDT documented as of this encounter Care Teams Tree Inspector Relationship Specialty Start Date End Date Juanis Levi PCP - General Addiction Medicine 06/29/21 [facility] [place] [phone] Stephani Pina, Assigned PCP 02/25/21 BENCH ASSEMBLER BATTERY INSIDE SALES PERSON [address] [address] Elsa Yeh, Registered Nurse Infectious Diseases 07/25/21 Rogelio Wilson Assigned Musculoskeletal 08/04/21 MD August Provider [address] [place] [address] documented as of this encounter
--- OUTSIDE RECORDS SUMMARY | 2021-11-10 00:35 | XMS_ITS | Encounter Summary ---
:1980 Author Organization [place] Address [address] [place] [address] Care Team Providers Name Role Phone Stephani Pina APRN FIELD CANE SCALER HELPER Unavailable [phone] Juanis Levi Primary Care Provider Elsa Yeh RN Unavailable Unavailable Reason for Visit Reason Onset Date Comments Previsit 07/31/2021 Encounter Details Date Type Department Care Team Description 07/31/2021 PRE VISIT [facility] Rogelio Treadwell, Previsit [facility] [address] [place] [phone] Social History Tobacco Use Types Packs/Day Years [...] at Date Recorded Female 01/14/2020 10:57 AM ROUND BONER documented as of this encounter Miscellaneous Notes Telephone Encounter - Anabelle Hamilton - 07/26/2021 11:08 AM CDT DIAGNOSIS: 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 [place] 12.06.05 R ankle 01.07.05 R ankle Action 07.26.21 11:12 AM KAVEH Action Taken Called [facility] fim desk and LVM for image Action July 27, 2021 4:33 PM MT Action Taken CSS recvd and resolved imgs to PACS. documented in this encounter Plan of Treatment Upcoming Encounters Date Type Specialty Care Team Description 11/15/2021 Office Visit Wound Care Luis Camara DPM [address] [place], [place] [address] (Wo rk) documented as of this encounter Visit Diagnoses Not on filedocumented in this encounter Additional Health Concerns Infection Onset Date Last Indicated Resolved Time MRSAComment: Added from external infection. 11/07/2014 05/02/2021 Assessment Noted Time PHQ-9 Depression Total Score: 2 12/15/2020 1:07 PM CDT documented as of this encounter Care Teams Monotyper Relationship Specialty Start Date End Date Juanis Levi PCP - General Addiction Medicine 06/29/21 [address] [place] [phone] Stephani Pina, FARZANA FIELD CANE SCALER HELPER Assigned PCP 02/25/[address] [place] [address] Elsa Yeh, RN Registered Nurse Infectious Diseases 6/8/22 documented as of this encounter
--- OUTSIDE RECORDS SUMMARY | 2021-11-10 00:35 | XMS_ITS | Encounter Summary ---
:1980 Author Organization [place] Address [address] [place] [address] Care Team Providers Name Role Phone Stephani Pina APRN DIRECTOR OF GRADUATE ADMISSIONS Unavailable Juanis Levi Primary Care Provider Elsa Yeh RN Unavailable Unavailable Reason for Visit Reason Comments Schedule Surgery Encounter Details Date Type Department Care Team Description 08/01/2021 Documentation Only [facility] Camryn Christina [facility] Surgery Plastic and MD Lexie Reconstructive Surgery [address] [address] [address] [place], [place] 4th Floor [address] [place], [place] [phone] (Work) [phone] Social History Tobacco Use Types Packs/Day Years [...] at Date Recorded Female 01/14/2020 10:57 AM JAVA LEAD COVID-19 Exposure Response Date Recorded In the last 10 days, have you been in contact with No / Unsu re 07/31/2021 1:25 PM CDT someone who was confirmed or suspected to have Coronavirus/COVID-19? documented as of this encounter Progress Notes Yessenia Marquez - 08/01/2021 10:05 AM CDT RN Rotary Engraver: Lesly Pina; [phone] Surgery is scheduled with Dr. Christina on 08/15 at the [facility] [place] [facility] Scheduled per orders H&P to be completed by TCU COVID-19 test: TCU Post-op: 08/[address] Christina Patient will receive a phone call from pre-admission nurses 1-2 days prior to surgery with arrival and start time. RNCC to contact patient. RNCC will let me know if I need to reach out to the patient. No further action needed at this time. documented in this encounter Plan of Treatment Upcoming Encounters Date Type Specialty Care Team Description 11/15/2021 Office Visit Wound Care Luis Camara DPM [address] [place], [place] [address] (Wo rk) documented as of this encounter Visit Diagnoses Not on filedocumented in this encounter Additional Health Concerns Infection Onset Date Last Indicated Resolved Time MRSAComment: Added from external infection. 11/07/2014 05/2 02/2021 Assessment Noted Time PHQ-9 Depression Total Score: 2 12/15/2020 1:07 PM CDT documented as of this encounter Care Teams Clinical Exercise Physiologist Relationship Specialty Start Date End Date Juanis Levi PCP - General Addiction Medicine 06/29/21 [address] [place] [phone] Stephani Pina, FARZANA DIRECTOR OF GRADUATE ADMISSIONS Assigned PCP 02/25/[address] [address] Elsa Yeh, RN Registered Nurse Infectious Diseases 07/25/21 documented as of this encounter
--- OUTSIDE RECORDS SUMMARY | 2021-11-10 00:35 | XMS_ITS | Encounter Summary ---
:1980 Author Organization [place] Address [address] [place] [address] Care Team Providers Name Role Phone Stephani Pina APRN LOOM OVERHAULER Unavailable [phone] Juanis Levi Primary Care Provider Elsa Yeh RN Unavailable Unavailable Rogelio Treadwell MD Unavailable [phone] Encounter Details Date Type Department Care Team Description 08/10/2021 Telephone [facility] Plastic and Camryn Christina, Reconstructive Surgery Clinic [place] [address] [place], [place] [phone] [place] [address] [place] [address] [phone] Social History Tobacco Use Types Packs/Day Years [...] at Date Recorded Female 01/14/2020 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 documented as of this encounter Miscellaneous Notes Telephone Encounter - Yessenia Marquez - 08/10/2021 1:29 PM CDT Spoke with TCU and they have all information needed including location/date/time/etc. No questions at this time. They do have our number if needed. Telephone Encounter - Yessenia Marquez - 08/10/2021 1:28 PM CDT ----- Message from Lesly Pina RN sent at 08/10/2021 9:50 AM CDT ----- Regarding: RE: Pre-Op and Current Admission at [facility] I did call them about pre-op and COVID. Could you please call and give them any info they need aboutlogistics of when and where to be? It is [phone] Lesly ----- Message ----- From: Yessenia Marquez Sent: 08/09/2021 5:02 PM CDT To: Lesly Pina RN Subject: RE: Pre-Op and Current Admission at [facility] This is the TCU that you called! Do I need to call? Yessenia ----- Message ----- From: Lesly Pina RN Sent: 08/09/2021 4:13 PM CDT To: Camryn Christina MD, Gucci Moses, # Subject: RE: Pre-Op and Current Admission at [facility] I spoke with the staff at the TCU when this case was scheduled and they said they would do her pre-op H&P there along with a COVID test. Yessenia, when you scheduled the surgery did you talk to the patient and/or the TCU about when and where to be? Lesly ----- Message ----- From: Yessenia Marquez Sent: 08/09/2021 3:44 PM CDT To: Lesly Pina RN, Camryn Christina MD, # Subject: RE: Pre-Op and Current Admission at [facility] Adding our RNCC, Lesly. Yessenia ----- Message ----- From: Gucci Moses Sent: 08/09/2021 11:23 AM CDT To: Camryn Christina MD, Yessenia Marquez Subject: Pre-Op and Current Admission at [facility] Rigobertolo Dr. Christina, I am doing chart review for next week and noticed this patient is currently admitted at the [facility] transitional care unit (which I assume is a floor within the hospital) since 07/23/21. I asked the nursing staff here at the [facility] how to coordinate her care and they were wondering about the circumstances ofthis case and transferring her on the DOS. Additionally, with all the documentation and rounding on her at the TCU, are you able to add an addendum H&P on DOS to clear her for surgery/anesthesia? Thank you for your time, Gucci (ASC Coordinator) documented in this encounter Plan of Treatment Upcoming Encounters Date Type Specialty Care Team Description 11/15/2021 Office Visit Wound Care Luis Camara DPM [address] [place], [place] [address] (Wo rk) documented as of this encounter Visit Diagnoses Not on filedocumented in this encounter Additional Health Concerns Infection Onset Date Last Indicated Resolved Time MRSAComment: Added from external infection. 11/07/2014 05/02/2021 Assessment Noted Time PHQ-9 Depression Total Score: 2 12/15/2020 1:07 PM CDT documented as of this encounter Care Teams Retail Administrative Assistant Relationship Specialty Start Date End Date Juanis Levi PCP - General Addiction Medicine 06/29/21 [facility] [place] [phone] Stephani Pina, Assigned PCP 02/25/21 PROFESSOR OF FAMILY MEDICINE LOOM OVERHAULER [address] [facility] [address] [place] [address] Elsa Yeh, Registered Nurse Infectious Diseases 07/25/21 RN Rogelio Treadwell Assigned Musculoskeletal 08/04/21 MD August Provider [address] [place] [address] documented as of this encounter
--- OUTSIDE RECORDS SUMMARY | 2021-11-10 00:35 | XMS_ITS | Encounter Summary ---
:1980 Author Organization [place] Address [facility] [address] Care Team Providers Name Role Phone Stephani Pina APRN LOCAL AREA NETWORK ADMINISTRATOR Unavailable Juanis Levi Primary Care Provider Elsa Yeh RN Unavailable Unavailable Encounter Details Date Type Department Care Team Description 07/31/2021 Orders Only [facility] Camryn Christina surgical Plastic and MD Lexie wound, subsequent Reconstructive Surgery [address] en counter ([facility] [address]) [address] [place], [place] 4th Floor [address] [place], [place] [phone] (Work) [phone] Social History Tobacco Use Types Packs/Day Years [...] at Date Recorded Female 01/14/2020 10:57 AM CUPOLA OPERATOR INSULATION documented as of this encounter Plan of Treatment Upcoming Encounters Date Type Specialty Care Team Description 11/15/2021 Office Visit Wound Care Luis Camara DPM [address] [place] [address] (Wo rk) documented as of this encounter Visit Diagnoses Diagnosis Non-healing surgical wound, subsequent e ncounter - Primary documented in this encounter Additional Health Concerns Infection Onset Date Last Indicated Resolved Time MRSAComment: Added from external infection. 11/07/2014 05/2 02/2021 Assessment Noted Time PHQ-9 Depression Total Score: 2 12/15/2020 1:07 PM CDT documented as of this encounter Care Teams Die Cast Operator Relationship Specialty Start Date End Date Juanis Levi PCP - General Addiction Medicine 06/29/21 [address] [place] [phone] Stephani Pina, SCREWDOWN OPERATOR LOCAL AREA NETWORK ADMINISTRATOR Assigned PCP 02/25/[address] [facility] [address] [place] [address] Elsa Yeh, RN Registered Nurse Infectious Diseases 07/25/21 documented as of this encounter
--- OUTSIDE RECORDS SUMMARY | 2021-11-10 00:35 | XMS_ITS | Encounter Summary ---
:1980 Author Organization [facility] Address [address] [place] [address]. [place] [address] Care Team Providers Name Role Phone Stephani Pina APRN RN ONCOLOGY CLINICAL Unavailable [phone] Juanis Mckenzie Primary Care Provider Elsa Yeh RN Unavailable Unavailable Rogelio Treadwell MD Unavailable [phone] Luis Camara DPM Unavailable [phone] Reason for Referral Home Health Therapies & Aides (Routine: Next available opening) Specialty Diagnoses / Procedures Referred By Contact Refer red To Contact [facility] [address] [place], [place] [id number] [phone] Referral ID Status Reason Start Date Expiration Date Visits Requ ested Visits Authorized onsultation (Routine: Next available opening) - Pending Review Specialty Diagnoses / Procedures Referred By Contact Refer red To Contact Dermatology Diagnoses Steroid-induced acne Eros Recinos MD [address] [place] [phone] Referral ID Status Reason Start Date Expiration Date Visits V isits Requested Authorized [id number] Pending 08/22/2021 08/22/2022 1 1 Review Reason for Visit Auth/Cert Specialty Diagnoses / Procedures Referred By Contact Refer red To Contact [facility] Trans[facility] [address] [place] [phone] Phone: Referral ID Status Reason Start Date Expiration Date Visits Requ ested Visits Authorized [id number] 1 1 Encounter Details Date Type Department Care Team Description 07/23/2021 - [facility] Bethanie Dowd MD [address] [facility] [address] [place] [address] Osteomyelitis of right ankle, unspecifie d type (H) (Primary Dx); 08/22/2021 Encounter Transitional Care La Nena Babb MD [address] [place] [address] Alcohol use disorder, severe, dependence (H); Unit [place] Anxiety; [address] [place] [address] Steroid-induc ed acne; Street Non-healing surgical wound, subsequent encounter; [place], [place] Chronic hepa titis C without hepatic coma (H); [address] Tooth pain; [phone] Acute pain of l eft knee; Fungal rash of trunk Social History Tobacco Use Types Packs/Day Years [...] at Date Recorded Female 01/14/2020 10:57 AM 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 documented as of this encounter Last Filed Vital Signs Vital Sign Reading Time Taken Comments Blood Pressure 117/55 08/22/2021 7:38 AM CDT Pulse 96 08/22/2021 7:38 AM CDT Temperature 36.6 ??C (97.8 ??F) 08/22/2021 7:38 AM CDT Respiratory Rate 18 08/22/2021 7:38 AM CDT Oxygen Saturation 97% 08/22/2021 7:38 AM CDT Inhaled Oxygen Concentration - - Weight 81.4 kg (179 lb 8 oz) 07/23/2021 6:53 PM CDT Height - - Body Mass Index 28.97 07/11/2021 10:01 AM CDT documented in this encounter Discharge Summaries Eros Recinos MD - 08/21/2021 10:29 AM CDT [facility] Transitional [facility] Hospitalist Discharge Summary Date of Admission: 07/23/2021 Date of Discharge: 08/22/2021 Discharging Provider: Shamar Hill MD Discharge Service: Hospitalist Service Discharge Diagnoses R ankle osteomyelitis?? MSSA bacteremia at OSH Allergic contact dermatitis??to adhesives Monomorphic erythematous??papules and??pustules, steroid acne HCV, chronic?? Alcohol use disorder. Hypokalemia Hypomagnesemia?? Hx opioid use disorder?? Chronic pain Discharge Disposition Discharged to home Condition at discharge: Stable Hospital Course Stephani King is a 40 yo female??w/ h/o opioid use d/o, alcohol use disorder,??HCV, hypothyroidism, depression, anxiety, and tobacco abuse. She was??admitted??to [facility] on 07/06/21 from [facility] for treatment of right ankle osteomyelitis by Ortho, Plastics and ID. Transferred to TCU 07/23 for ongoing cares IV antibiotics, wound cares ?? R ankle osteomyelitis?? MSSA bacteremia at OSH --- She presented to OSH on 06/28/21 with worsening right ankle pain and unable to walk x 1 week? --- MRI 06/29 w/ extensive tibiotalar erosions w/ large joint effusion and synovitis, diffuse muscle and superficial soft tissue edema.? --- Transferred to [facility] on 07/06[facility]21 --- S/p calcaneal hardware removal??and underwent??I&D x 3. --- Last right foot I&D performed on 07/07/[address] Olivera. --- Wound cx grew MSSA. ?? --- Has exposed bone and tendon, treated w/ wound vac which has since removed. --- F/u with Dr. Treadwell of Ortho on 07/31/21 and rec was continue wound care. F/u with Dr. Camara of Podiatry on 08/16/21. Return to see Dr. Treadwell to discuss surgery when wounds have healed. Has an appointment on 08/23 --- Blood cx was positive for MSSA at OSH. --- Wound culture here at [facility] was positive for 1+ staph simulans on 07/07 and 07/11 --- NGTD from blood cx x 2 collected on 07/06, 07/07, 07/09, 07/12 --- Wound fungal cx neg on 07/11/21?? --- TTE 06/29 neg for vegetation. --- RLE wt bearing as tolerated per Dr. Treadwell on 07/31/21 --- Initially treated with Vanc/Zosyn and transitioned to Ancef.?? --- n IV Ancef x 6 weeks, stop date 08/21/21 . CRP at 3.1 on 08/13 --- Continue ASA 162 mg??daily for DVT prophylaxis --- Seen by Plastic surgery consult service on 08/02/21. Underwent skin thickness skin graft (STSG) surgery to right ankle wound on 08/15/21 -- She was reviewed by plastic team on 08/22 in the clinic. Her graft was described to be healing well, and was given a go ahead to discharge home. She will be followed up by their clinic in 1 week. Theyadviviane CAM boot for 1 more week' ?? Right ankle pain and immobility --- Controlled. 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 ?? Irritant vs allergic contact dermatitis??to adhesives from??PICC line??dressing with disseminated idreaction (autosensitization/autoeczematization) --- Per dermatology's note 07/16?? --- Suspect due to adhesive dressings to secure PICC line exacerbated by fluid leakage and resultingimpaired skin barrier function; due to need for PICC for prolonged antibiotic course, would recommend avoiding irritating and sensitizing cleansing solutions including chlorhexidine gluconate when changing the dressing --- Would recommend silicone-faced low allergenic polyurethane foam dressings (Mepitac tape, [place], [id number]) over occlusive adhesive semipermeable gauze dressings; WO can provide more detailed recommendations --- Overall suspicion for cutaneous dermatophyte or yeast infection is low, suspect that square-shaped annular lesion on right medial arm may have been triggered??prior??adhesive bandage; some peripheral satellite papules lesions at primary dermatitis site on left arm,??can consider swapping the lesions for a fungal culture (results usually take days to weeks and should not delay discharge planning);consider adding anti-yeast agents such as nystatin ointment or clotrimazole cream to target/prevent secondary Karla infection --- Vaseline to scaly irritated inflamed skin to maintain skin barrier --- Clobetasol 0.05% ointment 1-2 times daily to inflamed??plaque??on??left??arm??near PICC insertion??until improved --- Triamcinolone 0.1% ointment??(request 80g or more from pharmacy) 1-2 times daily to all other areas --- Antihistamines PRN pruritus per primary --- Can consider referral for patch testing after discharge --- Rash significantly improved ( and therefore triamcinolone has been stopped) Monomorphic erythematous??papules and??pustules, steroid acne ??Patient developed new rash in the neck and upper torso, which ws evaluated by dermatology team andwas thought to be due to steroid cream - Stopped all topical steroids ( Kenalog was already stopped. Will stop Clobetasol) -I tried to get a sample for culture, but was unsuccessful. These pustules are relatively small to get a sample -Topical clindamycin lotion BID - Doxy 100 mg BID for a total of 2 weeks - Follow up with dermatology ? HCV, chronic?? Alcohol use disorder.?? --- HCV quant [id number]??at OSH. --- Continue Lactulose??20 g bid --- Spironolactone??was started but then stopped? --- Target 3-4 loose BMs a day, adjust dose of lactulose as needed? --- 07/07/21??US abdomen revealed hepatosplenomegaly and diffuse hepatic steatosis. LFT's on 08/16 with normal bilirubin, AST and ALT --- Follow up with Hepatology as an outpatient?? --- Alcohol abstinence recommendned ?? Acute Encephalopathy --- Suspect toxic metabolic, resolved. ?? Hypokalemia Hypomagnesemia?? --- Replaced per protocol? Hypothyroidism --- Continue Levothyroxine 125 mcg daily --- TSH Was wnl at 0.76 on 07/25/21 ?? Hx opioid use disorder?? Chronic pain --- In remission --- Has been successfully managed on??buprenorphine??since 2009. --- On buprenorphine 8 mg 3 times daily.. --- Continue Robaxin 750 mg tid, gabapentin 300 mg qhs ?? Pressure ulcers R buttocks, gluteal fold?? --- Noted on admission??at OSH to have skin redness at gluteal fold between thigh and buttocks.? --- Wound care per [facility] rec ? Anemia?? --- Hgb stable at 9-10 g? --- Continue folate and thiamine supplements ?? Tobacco abuse --- Nicotine replacement per patient preference ?? Indwelling duarte --- Removed ?? Dental Caries: --- Get out pt dental appointment Consultations This Hospital Stay WOUND OSTOMY CONTINENCE NURSE IP CONSULT PHYSICAL THERAPY ADULT IP CONSULT OCCUPATIONAL THERAPY ADULT IP CONSULT SPEECH REGULATORY AFFAIRS CONSULTANT ADULT IP CONSULT DERMATOLOGY IP CONSULT WOUND OSTOMY CONTINENCE NURSE IP CONSULT Code Status Full Code Time Spent on this Encounter I, Shamar Hill MD, personally saw the patient today and spent greater than 30 minutes discharging this patient. Shamar Hill MD [facility] [address] [id number] Physical Exam Vital Signs: Temp: 97.8 ??F (36.6 ??C) Temp src: Oral BP: 117/55 Pulse: 96 Resp: 18 SpO2: 97 % O2 Device: None (Room air) Weight: 179 lbs 8 oz General Appearance: Awake, alert and not in distress Respiratory: Clear breath sounds bilaterally Cardiovascular: Normal heart sounds. No murmurs GI: Soft, non tender. Normal bowel sounds Skin: Continues to have diffuse pustular rash in the neck, upper chest and base of the chin MSK: I did not examine patient's right ankle today as it was already dressed Other:Awake, alert and orientated X 3 Primary Care Physician JUANIS MCKENZIE Discharge Orders Adult Dermatology Referral Home Care Referral Reason for your hospital stay Rt ankle wound, S/P skin grafting Activity Your activity upon discharge: activity as tolerated Weight bearing as tolerated on rt Foot Adult [facility] Follow-up and recommended labs and tests Follow up with primary care provider, JUANIS MCKENZIE, within 7 days for hospital follow- up. No follow up labs or test are needed. Appointment with Dr Camara @ Podiatry Clinic on 08/23 Follow up with Plastic surgery on 08/28 Follow up with Infectious Disease Clinic on 08/30 Referral placed to be evaluated in dermatology Clinic for steroid acne in 1 week Appointments on [place] and/or [facility] (with [facility] or [facility] provider or service). Call [phone] if you haven't heard regarding these appointments within 7 days of discharge. Activity Your activity upon discharge: activity as tolerated Weight bearing as tolerated on the rt Foot Wear Cam boot till next plastic surgery appointment Wound care and dressings Instructions to care for your wound at home: daily dressing changes. Xerofoam dressing changes to the right ankle everyday Diet Follow this diet upon discharge: Orders Placed This Encounter Snacks/Supplements Adult: Other; AM/PM snacks: vanilla pudding; Between Meals Snacks/Supplements Adult: Other; Allow pt to order snacks/supplements PRN; Between Meals Regular Diet Adult Significant Results and Procedures Discharge Medications Current Discharge Medication List START taking these medications Details clindamycin (CLEOCIN T) 1 % external lotion Apply topically 2 times daily Qty: 60 mL, Refills: 0 Associated Diagnoses: Steroid-induced acne diclofenac (VOLTAREN) 1 % topical gel Apply 2 g topically 2 times daily Qty: 200 g, Refills: 0 Associated Diagnoses: Acute pain of left knee doxycycline hyclate (VIBRAMYCIN) 100 MG capsule Take 1 capsule (100 mg) by mouth every 12 hours for 9 days Qty: 18 capsule, Refills: 0 Associated Diagnoses: Steroid-induced acne ibuprofen (ADVIL/MOTRIN) 200 MG tablet Take 1 tablet (200 mg) by mouth every 6 hours as needed for moderate pain (Dental pain) Qty: 30 tablet, Refills: 0 Associated Diagnoses: Tooth pain lidocaine (XYLOCAINE) 4 % external solution Apply topically Every Mon, Wed, Fri Morning Qty: 50 mL, Refills: 0 Associated Diagnoses: Non-healing surgical wound, subsequent encounter miconazole (MICATIN) 2 % external powder Apply topically 2 times daily Qty: 71 g, Refills: 0 Associated Diagnoses: Fungal rash of trunk CONTINUE these medications which have CHANGED Details folic acid (FOLVITE) 1 MG tablet Take 1 tablet (1 mg) by mouth daily Qty: 90 tablet, Refills: 1 Associated Diagnoses: Alcohol use disorder, severe, dependence (H) gabapentin (NEURONTIN) 100 MG capsule Take 3 capsules (300 mg) by mouth At Bedtime Qty: 30 capsule, Refills: 0 Associated Diagnoses: Alcohol use disorder, severe, dependence (H); Anxiety hydrOXYzine (ATARAX) 25 MG tablet Take 1 tablet (25 mg) by mouth At Bedtime Qty: 30 tablet, Refills: 0 Associated Diagnoses: Anxiety lactulose (CEPHULAC) 20 GM packet Take 1 packet (20 g) by mouth 2 times daily Qty: 60 Units, Refills: 0 Associated Diagnoses: Chronic hepatitis C without hepatic coma (H) methocarbamol (ROBAXIN) 750 MG tablet Take 1 tablet (750 mg) by mouth 3 times daily Qty: 90 tablet, Refills: 0 Associated Diagnoses: Osteomyelitis of right ankle, unspecified type (H) senna-docusate (SENOKOT-S/PERICOLACE) 8.6-50 MG tablet Take 2 tablets by mouth 2 times daily Qty: 30 tablet, Refills: 0 Associated Diagnoses: Osteomyelitis of right ankle, unspecified type (H) thiamine (B-1) 100 MG tablet Take 1 tablet (100 mg) by mouth daily Qty: 30 tablet, Refills: 0 Associated Diagnoses: Osteomyelitis of right ankle, unspecified type (H) CONTINUE these medications which have NOT CHANGED Details acetaminophen (TYLENOL) 325 MG tablet Take 3 tablets (975 mg) by mouth every 8 hours as needed for mild pain Qty: 40 tablet, Refills: 0 Associated Diagnoses: Osteomyelitis of right ankle, unspecified type (H) aspirin (ASA) 81 MG EC tablet Take 2 tablets (162 mg) by mouth daily Qty: 60 tablet Comments: Continue until R ankle wound healed or per ortho Associated Diagnoses: Osteomyelitis of right ankle, unspecified type (H) buprenorphine (SUBUTEX) 8 MG SUBL sublingual tablet Place 1 tablet (8 mg) under the tongue 3 times daily Qty: 90 tablet, Refills: 0 Comments: JAMES: [id number] Associated Diagnoses: Opioid use disorder, severe, in sustained remission, on maintenance therapy (H) cholecalciferol 50 MCG (2000 UT) tablet Take 1 tablet (50 mcg) by mouth daily Qty: 90 tablet, Refills: 1 Associated Diagnoses: Alcohol abuse, continuous fexofenadine (ELOISE) 180 MG tablet Take 1 tablet (180 mg) by mouth daily as needed for allergies Associated Diagnoses: Irritant dermatitis levothyroxine (SYNTHROID/LEVOTHROID) 125 MCG tablet Take 1 tablet (125 mcg) by mouth every morning Qty: 90 tablet, Refills: 1 Associated Diagnoses: Hypothyroidism, unspecified type mineral oil-hydrophilic petrolatum (AQUAPHOR) external ointment Apply topically every 4 hours as needed for dry skin or irritation nicotine (NICODERM CQ) 14 MG/24HR [address] 1 patch onto the skin every 24 hours Qty: 28 patch, Refills: 11 Associated Diagnoses: Tobacco use disorder venlafaxine (EFFEXOR-XR) 150 MG 24 hr capsule Take 1 capsule (150 mg) by mouth daily Qty: 30 capsule, Refills: 1 Associated Diagnoses: Depression, unspecified depression type STOP taking these medications ceFAZolin 2 g Comments: Reason for Stopping: clobetasol (TEMOVATE) 0.05 % external ointment Comments: Reason for Stopping: diphenhydrAMINE (BENADRYL) 25 MG capsule Comments: Reason for Stopping: famotidine (PEPCID) 20 MG tablet Comments: Reason for Stopping: magnesium oxide (MAG-OX) 400 MG tablet Comments: Reason for Stopping: naloxone (NARCAN) 4 MG/0.1ML nasal spray Comments: Reason for Stopping: oxyCODONE (ROXICODONE) 5 MG tablet Comments: Reason for Stopping: polyethylene glycol (MIRALAX) 17 g packet Comments: Reason for Stopping: senna (SENOKOT) 8.6 MG tablet Comments: Reason for Stopping: triamcinolone (KENALOG) 0.1 % external ointment Comments: Reason for Stopping: Allergies No Known Allergies documented in this encounter Medications at Time of Discharge Medication Sig Dispensed Refills Start Date End Date acetaminophen (TYLENOL) Take 3 tablets (975 40 tablet 0 325 MG tabletIndications: mg) by mouth every Osteomyelitis of right 8 hours as needed ankle, unspecified type for mild pain (H) aspirin (ASA) 81 MG EC Take 2 tablets (162 60 tablet 0 05/2021 tabletIndications: dvt mg) by mouth daily ppx cholecalciferol 50 MCG Take 1 tablet (50 90 tablet 1 2020 (2000 UT) mcg) by mouth daily tabletIndications: Vitamin D Deficiency clindamycin (CLEOCIN T) 1 Apply topically 2 60 mL 0 06/2021 % external times daily lotionIndications: monomorphic follicular papules and pustules diclofenac (VOLTAREN) 1 % Apply 2 g topically 200 g 0 0 08/21/2021 topical gelIndications: 2 times daily Acute pain of left knee fexofenadine (ELOISE) Take 1 tablet (180 0 07/21 180 MG tabletIndications: mg) by mouth daily irritant dermatitis as needed for allergies folic acid (FOLVITE) 1 MG Take 1 tablet (1 90 tablet 1 06/2021 tabletIndications: Folate mg) by mouth daily Deficiency Anemia ibuprofen (ADVIL/MOTRIN) Take 1 tablet (200 30 tablet 0 06/2021 200 MG tabletIndications: mg) by mouth every Tooth pain 6 hours as needed for moderate pain (Dental pain) lactulose (CEPHULAC) 20 Take 1 packet (20 60 Units 0 08/21 GM packetIndications: g) by mouth 2 times Constipation daily lidocaine (XYLOCAINE) 4 % Apply topically 50 mL 0 08/22 external Every Mon, Wed, Fri solutionIndications: pain Morning methocarbamol (ROBAXIN) Take 1 tablet (750 90 tablet 0 06/2021 750 MG tabletIndications: mg) by mouth 3 Osteomyelitis of right times daily ankle, unspecified type (H) miconazole (MICATIN) 2 % Apply topically 2 71 g 0 06/2021 external times daily powderIndications: Fungal rash of trunk mineral oil-hydrophilic Apply topically 0 022 petrolatum (AQUAPHOR) every 4 hours as external ointment needed for dry skin or irritation nicotine (NICODERM CQ) 14 Place 1 patch onto 28 patch 11 MG/24HR 24 hr the skin every 24 [...] 9 days infected steroid acne buprenorphine (SUBUTEX) 8 Place 1 tablet (8 90 tablet 0 08/23/2021 MG SUBL sublingual mg) under the tabletIndications: Opioid tongue 3 times Dependence daily gabapentin (NEURONTIN) Take 3 capsules 30 capsule 0 08/22/1908/23/2021 100 MG (300 mg) by mouth capsuleIndications: At Bedtime Neuropathic Pain hydrOXYzine (ATARAX) 25 Take 1 tablet (25 30 tablet 0 08/2109/27/2021 MG tabletIndications: mg) by mouth At Anxiety, Pruritus Bedtime levothyroxine Take 1 tablet (125 90 tablet 1 01/07/202008/2021 (SYNTHROID/LEVOTHROID) mcg) by mouth every 125 MCG morning tabletIndications: Hypothyroidism venlafaxine (EFFEXOR-XR) Take 1 capsule (150 30 capsule 1 08/23/2021 150 MG 24 hr mg) by mouth daily capsuleIndications: Generalized Anxiety Disorder documented as of this encounter Progress Notes Breanna Newton - 08/22/2021 3:45 PM CDT SW was [facility], pt was leaving. Doctor told pt okay for discharge today. Pt would not stay any longer. Pt started calling transportation but didn't know the address. SW called [employer]. They set up [employer]. [phone]. Pt asked if PT ordered leg cart. SW talked to PT. They did not as they didn't know if pf needed it or not. Pt bares weight on leg. Pt tried to go to walk in clinic for med but they refused as pt had not been discharge yet. Pt stated pt had a couple of those meds at home. Pt will call pt's on way home. Discharge Plan Discharge Date: 08/22/21 At 3 :15 pm Discharge Disposition: Home . Discharge Services: Home PT/OT/fire lookout Supplies: Meds from TCU went home with pt. Pt will have to get leg cart if pt really needsit. Discharge Transportation: [employer]. [phone] JACKIE redid Bims/ 13 and PHQ 0. TUSHAR Castaneda [facility], Transitional Care Unit Social Work [facility] [address] [place] [address] (PH) [phone] Smita Stone PT - 08/21/2021 6:06 PM CDT Physical Therapy Discharge Summary Reason for therapy discharge: Poor tolerance for therapy, all functional needs have been met at this time pending further mobilityclearance Progress towards therapy goal(s). See goals on Care Plan in [facility] electronic health record for goal details. Goals partially met. Barriers to achieving goals: limited tolerance for therapy and weight bearing status. Therapy recommendation(s): Continued therapy is recommended. Rationale/Recommendations: Once pt has discharged to home setting and weight bearing restrictions are lifted further therapy may be warrented to address fucntional deficits pending pt participation.. Breanna Newton - 08/21/2021 5:13 PM CDT SW went to see pt. Pt hasn't heard if letter to [facility] was received or not. Pt called while SW wasin the room. SW said all are working on pt's discharge. As soon as HC is found and transportation islined up then pt can go. Also, pt has to go to walkin clinic for meds. Pt understood this. TUSHAR Castaneda [facility], Transitional Care Unit Social Work [facility] [address] [place] [address], [address] [place] [address] () [phone] Eros Recinos MD - 08/20/2021 10:13 AM CDT Charts reviewed. No new complaints No new complaints Rash in the chin, anterior neck and upper chest are stable with some clearence Has dental pain BP 130/68 (BP Location: Right arm, Patient Position: Semi-Hammer's, Cuff Size: Adult Regular) Pulse 96 Temp 97.7 ??F (36.5 ??C) (Oral) Resp 18 Wt 81.4 kg (179 lb 8 oz) LMP 05/24/2016 (Approximate) SpO2 97% BMI 28.97 kg/m?? Labs reviewed. Normal BMP. Thrombocytopenia, with platelet at 106 ( stable) Hgb stable at 10.0 Abx to end on 08/21. Tentative discharge on 08/22 Dr Lizet Ibanez MD, [facility] Hospitalist ( Internal medicine) Pager: [phone] Smita Stone PT - 08/20/2021 9:17 AM CDT 08/20/21 0900 Appointment Canceled Appointment Canceled Patient declined Cancel Comments PT: Pt states that she is feeling nauseous and tired this AM, declines performing any therapy despite offers of both in and out of room exercises. Pt is able to state that is WBAT, which is agrees with author's chart review. Anticipated last day of therapy and IV tomorrow (08/21), pt states she will participate. Signing Clinician's Name / Credentials Signing clinician's name / credentials Smita Stone DPT [facility] PT Eros Recinos MD - 08/19/2021 11:16 AM CDT Charts reviewed. No new complaints No new complaints BP 128/68 (BP Location: Right arm) Pulse 95 Temp 97.8 ??F (36.6 ??C) (Oral) Resp 16 Wt 81.4 kg (179 lb 8 oz) LMP 05/24/2016 (Approximate) SpO2 96% BMI 28.97 kg/m?? Continue care as planned Abx to end on 08/21 Dr Lizet Ibanez MD, [facility] Hospitalist ( Internal medicine) Pager: [phone] Eros Recinos MD - 08/18/2021 11:05 AM CDT Charts reviewed. No new complaints Tolerating oral abx well Complaining of diffuse aches and pain, wanting pain meds. Says tylenol not helping Specifically, complaining about pain in the left knee BP 106/62 (BP Location: Right arm) Pulse 96 Temp (!) 95.8 ??F (35.4 ??C) (Oral) Resp 16 Wt 81.4 kg (179 lb 8 oz) LMP 05/24/2016 (Approximate) SpO2 96% BMI 28.97 kg/m?? Left knee with no obvious swelling or erythema Preserved joint movements Start Diclofenac 1% gel BIX X [address] Lizet Ibanez MD, [facility] Hospitalist ( Internal medicine) Pager: [phone] Marycarmen Cross PT - 08/17/2021 4:10 PM CDT 08/17/21 1031 Appointment Canceled Appointment Canceled Patient declined Cancel Comments PT: pt declined, would barely open eyes, said she did not feel well. Signing Clinician's Name / Credentials Signing clinician's name / credentials Marycarmen Cross DPT Breanna Newton - 08/17/2021 4:00 PM CDT SW received a call from pt. Pt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 Bathing Supervision/stand-by assist OT: Lower Body Bathing Supervision/stand-by assist OT: Bed Mobility Modified independent;within precautions OT: Transfer within precautions;Modified independent OT: Toilet Transfer/Toileting Modified independent;within precautions;using adaptive equipment OT: Meal Preparation Supervision/stand-by assist;within precautions;using adaptive equipment OT: Cognitive Patient/caregiver will verbalize understanding of cognitive assessment results/recommendations as needed for safe discharge planning Associated attestation - Reyna Ulloa MD - 08/02/2021 12:42 PM CDT Reviewed the plan of care as written by the therapy team. I agree with the charted information in the Rehabilitation evaluation, flowsheet and plan of care Reyna Ulloa MD, A [employer] Operators Supervisor Transitional Care unit 08/02/21 Smita Stone, PT - 07/24/2021 12:11 PM CDT 07/24/21 0800 Quick Adds Quick Adds Certification Type of Visit Initial PT Evaluation Toll Gate Tender Language Argentine Living Environment People in Home child(kayden), dependent (14,8,4) Current Living Arrangements house Home Accessibility no concerns Transportation Anticipated family or friend will provide Living Environment Comments PT: Pt lives in [place], [place] with 4 ILANA after that needs are managed on one level. Pt has dependent children at home and [employer] was IND with household cares but reports not driving for a long time due to ankle issues. Does not own or use COLLECTION SYSTEMS [employer] any AD. Pt does report that ~ 5 days prior to hospitalization, pt became effectively bed ridden due to ankle. Self-Care Usual Activity Tolerance moderate Current Activity Tolerance poor Regular Exercise No Equipment Currently Used at Home none Fall history within last six months no Activity/Exercise/Self-Care Comment PT: Pt reports moving around her house without device. Does not work, cares for her dependent children. Mom lives within 1 mile of home. Pt reports not driving due to ankle pain and also needing to get license back General Information Onset of Illness/Injury or Date of Surgery 07/06/[address] La Nena Babb MD Patient/Family Therapy Goals Statement (PT) To go home Pertinent History of Current Problem (include personal factors and/or comorbidities that impact the POC) Taken per chart review: 40 year old female with past medical history significant for opioid usedisorder, alcohol use disorder, HCV, hypothyroidism, depression, anxiety, and tobacco abuse admittedon 07/06/21 from [facility] for further care of R ankle osteomyelitis by Orthopedics, Plastics, and Infectious Disease. Existing Precautions/Restrictions fall Weight-Bearing Status - RLE nonweight-bearing General Observations PT: Pt is lying semi supine in bed alert and awake, able to answer questions without concern. Cognition Affect/Mental Status (Cognition) WFL Orientation Status (Cognition) oriented x 3 Cognitive Status Comments Defer to OT for cog assessment Pain Assessment Patient Currently in Pain Yes, see Vital Sign flowsheet (Reports constant ankle pain) Integumentary/Edema Integumentary/Edema Comments Pt has gus wrap and bandages on R ankle, managed by nursing, wound vac in place under bandages Posture Posture Forward head position Range of Motion (ROM) ROM Comment PT: L LE WFL, R LE except for ankle are WFL. R ankle mobility not tested due to post surgical status Strength (Manual Muscle Testing) Strength Comments PT: Except R ankle, pt is grossly 4-/5 in LE Bed Mobility Comment, (Bed Mobility) PT: Pt is able to transfer from supine > sit with IND, use of bed rail. Pt returns to Supine from seated EOB with IND, again with use of bedrail Transfers Comment, (Transfers) PT: PT performs stand pivot transfer from EOB to commode with SUP, able to keepR LE off ground and respect weightbearing precautions. Pt then performs sit <> stands off EOB to knee scooter with SBA, has a little difficulty navigating knee scooter with position to chair, butable to remain safe while repositioning Gait/Stairs (Locomotion) Comment, (Gait/Stairs) PT: Ambulation with knee scooter on R for endurance, pt able to propel herself 278 ft x1, 157 ft x 1, with SBA with author assit for IV pole. Balance Balance Comments PT: Pt is able to maintin NWB on R LE while standing at EOB to transition to commode with SBA for ~ 15 sec Sensory Examination Sensory Perception Comments PT: Pt reports R foot feeling weird denies numbness and tingling, appears to have decreased proprioceptive sensation Coordination Coordination Comments PT: Unable to perform B heel carl test due to pain and weakness in LE Muscle Tone Muscle Tone no deficits were identified Clinical Impression Criteria for Skilled Therapeutic Intervention Yes, treatment indicated PT Diagnosis (PT) PT: Decreased endurance, strength, and tolerance for out of bed activity Influenced by the following impairments Medical Status, NWB status on R LE Functional limitations due to impairments Ambulation, transfers, stair climbing, out of bed activity Clinical Presentation (PT Evaluation Complexity) Evolving/Changing Clinical Presentation Rationale Age, PMH, NWB status on R LE, recent hospitalization Clinical Decision Making (Complexity) moderate complexity Planned Therapy Interventions (PT) balance training;bed mobility training;cryotherapy;E-stim;gait training;groups;home exercise program;joint mobilization;lumbar stabilization;manual therapy techniques;motor coordination training;neuromuscular re-education;orthotic fitting/training;patient/family education;postural re-education;prosthetic fitting/training;ROM (range of motion);stair training;strengthening;stretching;martiniquais ball techniques;TENS;thermotherapy;transfer training;wheelchair management/propulsion training;progressive activity/exercise;risk factor education;home program guidelines Anticipated Equipment Needs at Discharge (PT) other (see comments) (Knee scooter) Risk & Benefits of therapy have been explained evaluation/treatment results reviewed;care plan/treatment goals reviewed;risks/benefits reviewed;current/potential barriers reviewed;participants voiced agreement with care plan;participants included;patient Clinical Impression Comments PT: Pt is a 40 y/o female who presents for PT evaluation following hospitalization for osteomyeltiis of R ankle and subsequent surgical management. PT evaluation revealed decreased endurance, strength, and tolerance for out of bed activity with increased need for assist given NWB status on R LE and wound vac placement. Skilled PT is warrented to address these deficits, aide in safe return to prior living environment, and reduce risk of adverse healing event. PT Discharge Planning PT Discharge Recommendation (DC Rec) home with home care physical therapy Therapy Certification Start of care date 07/24/21 Certification date from 07/24/21 Certification date to 08/22/21 Medical Diagnosis Physical Deconditioning Physical Therapy Goals PT Frequency 6x/week PT Predicted Duration/Target Date for Goal Attainment 08/01/21 PT Goals Transfers;Gait;Stairs;PT Goal 1 PT: Transfers Modified independent;Sit to/from stand;Bed to/from chair;Within precautions PT: Gait Modified independent;Within precautions;100 feet PT: Stairs 4 stairs;Modified independent PT: Goal 1 PT: Pt will perform car transfer with SUP in order to discharge home under the care of family. Associated attestation - Reyna Ulloa MD - 08/02/2021 12:43 PM CDT Reviewed the plan of care as written by the therapy team. I agree with the charted information in the Rehabilitation evaluation, flowsheet and plan of care Reyna Ulloa MD, A [employer] Operators Supervisor Transitional Care unit 08/02/21 Dilma Adams - 07/24/2021 11:55 AM CDT 07/24/21 1100 Name of Certified Therapeutic Rec Specialist Name of Certified Therapeutic Rec Specialist Dilma Adams, WES Appointment Type Type of Therapeutic Rec Session Therapeutic Rec Assessment General Information Patient Profile Review See Profile for full history and prior level of function Daily Contact with Relatives or Friends Phone call;Visit Pets Other (see comments) (hamster) Community Involvement Community Involvement Disabled Spiritual Practice [facility] Applique Sewer? No Outings Movies Hobbies/Interests Cards Other (see comments) (cards with kids) Games Other (comments) (games with kids, occasionally) Word Puzzles Word Search;Crossword Craft/Art Other (comments) (adult coloring) Media Computer Has own at home;Will use tablet/phone TV / Movies TV;Movie list Reading Books Reading Preferences Other (see comments) (spiritual) Sports / Physical Activities Outdoor Activities Outdoor gardening Impression Open to Socializing with Others Independent Barriers to Leisure Mobility Patient, family and / or staff in agreement with Plan of Care Yes Treatment Plan Interested in Unit [place]? No Type of Intervention Independent with activity Equipment and Supplies While on Unit Movies;Puzzle books Assessment Assessment completed. Pt was provided with list of leisure materials available, pt expressed interest in and was provided with movie list and word searches. Will provide check in for materials as needed. LIOT Leydi Meng RD - 07/24/2021 11:54 AM CDT CLINICAL NUTRITION SERVICES - BRIEF NOTE REASON FOR ASSESSMENT Stephani King is a 40 year old female assessed by the dietitian for MST score of 2: positive for weight loss (due to hospital food) of 14-23 lbs and negative for poor oral intake related to decreasedappetite PMH significant for opioid use disorder,??alcohol use disorder,??HCV, hypothyroidism, depression, anxiety, and tobacco abuse??admitted to [facility] on 07/06/21 from [facility] for further care of R ankle osteomyelitis by Orthopedics, Plastics, and Infectious Disease Patient Was transferred to TCU 07/23 for ongoing cares Iv antibiotics, wound cares Findings Pt with 4# wt gain sicne admit to hospital. Overall 8oz wt loss in 8 months and 4# gain in over 2 years. Pt was consuming 75-100% of melas while on orhto floor (25% of 1 meal). Wt Readings from Last 10 Encounters: 07/23/21 81.4 kg (179 lb 8 oz) 07/11/21 79.4 kg (175 lb)-admit to ortho 12/15/20 81.6 kg (180 lb) 04/01/19 79.4 kg (175 lb) 02/28/19 83.6 kg (184 lb 4.9 oz) 12/18/18 83.6 kg (184 lb 4.9 oz) 08/23/18 83.5 kg (184 lb) 08/23/18 86.2 kg (190 lb) INTERVENTIONS Implementation None today Follow up/Monitoring RD to complete full assessment at [facility] unless otherwise consulted Leydi Meng MS, RD, LDN Unit Pager [phone] Weekend pager: [phone] documented in this encounter H&P Notes La Nena Babb MD - 07/24/2021 8:57 AM CDT [facility] Transitional Care History and Physical - Hospitalist Service Date of Admission: 07/23/2021 Assessment & Plan 40 year old female??with past medical history significant for opioid use disorder,??alcohol use disorder,??HCV, hypothyroidism, depression, anxiety, and tobacco abuse??admitted to [facility] on 07/06/21 from [facility] for further care of R ankle osteomyelitis by Orthopedics, Plastics, and Infectious Disease Patient Was transferred to TCU 07/23 for ongoing cares Iv antibiotics, wound cares R ankle osteomyelitis?? # Right ankle pain and immobility #MSSA bacteremia.??- Blood cx positive at OSH. ??Initially treated with Vanc/Zosyn and transitioned to Ancef. ??TTE 06/29 neg for vegetation. ? Presented to OSH with worsening R ankle pain and unable to walk x 1 week on 06/28.?MRI 06/29 w/ extensive tibiotalar erosions w/ large joint effusion and synovitis, diffuse muscle and superficial softtissue edema.?S/p calcaneal hardware removal??and underwent??I&D x 3. ??Arthrocentesis attempted there without fluid retrieval. ??Wound cx positive for MSSA. ??Has exposed bone and tendon now with wound vac in place.?? per plastic surgery Continue wound vac therapy And follow up with plastic surg in 2 weeks for wound check ?? Initially treated with broad antibiotics IV vancomycin and Zosyn. Orthopedic surgery, infectious disease,WOCN consulted. 07/07/2021: Status post IRRIGATION AND DEBRIDEMENT, FOOT and ankle, wound vac exchange by Dr. Olivera. ??EBL: 25 ml Per Ortho: ?? aspirin 162 mg every day for DVT prophylaxis. NWB on the RLE. Elevation: Elevate??RLE??on pillows as much as possible. Wound Care:??Wound vac to remain in place @ 125mmHg Cultures: Wound culture positive for 1+ staph simulans. Blood cultures remain no growth to date. Follow-up:??Follow up as an outpatient in 2 weeks with plastic surgery. Follow up either with Dr. Treadwell or with Podiatry team Dr. Mora and/or Dr. Camara. ?? Infectious disease recommendations 07/21/2021 ?Infectious Diseases Diagnosis/es:??MSSA bacteremia secondary to left ankle osteomyelitis s/p hardware removal and multiple debridements ?? IV antibiotics:??Yes ?? Antibiotic Information Name of Antibiotic Dose of Antibiotic1 Pharmacy to assist with dosing Y/N Anticipated duration Effective start date2 End date Cefazolin 2g Q8H (or continuous infusion alternative) N 6 week 07/11/21 08/21/21 ? 1.Dose of antibiotic will need to be renally adjusted if creatinine clearance changes 2.Effective start date is the date of therapy with appropriate spectrum ?? Method of antibiotic delivery:PICC line. At the end of therapy should the line be removed???Yes. Selecting yes will function as written order to remove PICC line at the end of therapy. ?? Weekly labs required:??CBC with diff, BMP and CRP. ??Skipper??will follow labs at discharge untilID follow up. Please have labs faxed to ID clinic. ?? Appointment to be scheduled:??Within??4-6 weeks??of discharge. Type of ID Clinic Appointment??In-Person visit. Appointment will be scheduled with:??Next available General ID Provider. Routine hospital follow up appointments are 30 minutes. If 60 minutes is necessary due to complexity of case indicate that a 60 min appointment is required. Appointment time??Appointment Time: 30 minutes. If the patientremains in the hospital at this date please re-consult ID. ?? Imaging for ID follow up:??ID Imaging: Follow up imaging for ID purposes not recommended at the timeof this documentation. ?? WOCN following. See note in epic for recommendations.. ?>Pain control: Currently controlled. -Continue??[employer]??Suboxone ??8mg tid ??; scheduled APAP 975mg TID, Gabapentin 300mg HS, Robaxin 750mg TID, and oxycodone 5-10mg Q6H PRN. ? #Acute rash:??Blanchable rash on the both legs left>right. Right arm,and around picc line. Picture taken. See under media. - Dermatology consulted. -Topical steroids, antiallergy pills as needed. ??Rash improving. ?? Per dermatology's note 07/16 ?? # Irritant versus allergic contact dermatitis to adhesives from??PICC line??dressing with disseminated id reaction (autosensitization/autoeczematization) - suspect due to adhesive dressings to secure PICC line exacerbated by fluid leakage and resulting impaired skin barrier function; due to need for PICC for prolonged antibiotic course, would recommend avoiding irritating and sensitizing cleansing solutions including chlorhexidine gluconate when changing the dressing - would recommend silicone-faced low allergenic polyurethane foam dressings (Mepitac tape, Sorbiview, [id number]) over occlusive adhesive semipermeable gauze dressings; WOC can provide more detailed recommendations - overall suspicion for cutaneous dermatophyte or yeast infection is low, suspect that square-shapedannular lesion on right medial arm may have been triggered??prior??adhesive bandage; some peripheralsatellite papules lesions at primary dermatitis site on left arm,??can consider swapping the lesionsfor a fungal culture (results usually take days to weeks and should not delay discharge planning); consider adding anti-yeast agents such as nystatin ointment or clotrimazole cream to target/prevent secondary Karla infection -??Vaseline to scaly irritated inflamed skin to maintain skin barrier - clobetasol 0.05% ointment 1-2 times daily to inflamed??plaque??on??left??arm??near PICC insertion??until improved - triamcinolone 0.1% ointment??(request 80g or more from pharmacy) 1-2 times daily to all other areas - antihistamines PRN pruritus per primary - can consider referral for patch testing after discharge ??- rash not worsening ? # HCV, chronic # Transaminitis? # Alcohol use disorder.?? HCV quant 131988??at OSH. ??AST 117---56 , ALT 44--- 42 , and AP 213 on 07/05. ??Tbili 1.6---0.7 . ??Albumin 2.9. ??INR 1.39. ??Started on Lactulose 20 g bid , Spironolactone was stared but then stopped - aim for 3-4 loose BM a day, adjust dose of lactulose as needed ?? - 07/07/21 abdomen -Hepatosplenomegaly and diffuse hepatic steatosis -Recommend Esophageal/Gastric Varices screening and Repeat EGD every 1-2 years based on ongoing alcohol use as well as yearly Hepatocellular carcinoma screen .- follow up with Hepatology outpatient?? - Alcohol abstinence. CD tt as needed. # Acute Encephalopathy, suspect toxic metabolic: Resolved. Per chart review, patient somnolent on admission and with periods of confusion early in admission. ??[place] to be??toxic vs metabolic??2/2 ?withdrawal, infection, sepsis. ??Utox positive only for cannabinoids. ??Started on Lactulose at OSH. Currently alert, oriented, nonfocal.. ?? # Hypokalemia # Hypomagnesemia?? -Replaced ?? # Hypothyroidism ??- Continue Levothyroxine 125mcg QAM. -last TSH In [facility] was 2019, repeat TSH with next blood draw ?? #??Hx opioid use disorder?? # Chronic pain In remission, has been successfully managed on??buprenorphine??since 2009. ??On buprenorphine 8 mg 3times daily.. - on Robaxin 750 3 times daily. ??Adjusted gabapentin to 300 mg at bedtime, adjust as needed # Pressure ulcers R buttocks, gluteal fold??- Noted on admission??at OSH to have skin redness at gluteal fold between thigh and buttocks.?- seen by WOCN - Continue wound cares ? # Anemia?? - Hgb 9.9 stable in 9s, no signs of acute bleed - Continue folate supplementation ?? # Tobacco abuse??- Nicotine replacement per patient preference ?? # Indwelling duarte:??07/08:??discontinued duarte Urinating well with no significant retention. Monitor PVR Diet: Regular Diet Adult DVT Prophylaxis: aspirin 162 mg daily Duarte Catheter: Not present Central Lines: PRESENT PICC Single Lumen Left-Site Assessment: WDL Cardiac Monitoring: None Code Status: Full Code Clinically Significant Risk Factors Present on Admission # Platelet Defect: home medication list includes an antiplatelet medication # Overweight: Estimated body mass index is 28.97 kg/m?? as calculated from the following: Height as of 07/11/21: 1.676 m (5' 6). Weight as of this encounter: 81.4 kg (179 lb 8 oz). Disposition Plan Expected Discharge: TBD Anticipated discharge location: home Follow-up Appointments Adult [facility] Follow-up and recommended labs and tests Follow up with Dr Camara or Morgan with Podiatry in 1-2 weeks. Clinic phone number is [phone] ?? Follow up with Plastic Surgery in 2 weeks. ?? Follow up with infectious disease 4-6 weeks. ?? Follow-up Labs: Weekly CBC w diff, BMP, CRP. Please have labs faxed to ID clinic. ?? The patient's care was discussed with the care team La Nena Babb MD Hospitalist Service [facility] Transitional Care Securely message with the Informative Console (learn more here) Text page via [employer] Paging/Directory Chief Complaint Weakness, right ankle pain, IV antibiotics administration History of Present Illness 40 year old female??with past medical history significant for opioid use disorder,??alcohol use disorder,??HCV, hypothyroidism, depression, anxiety, and tobacco abuse??admitted to [facility] on 07/06/21 from [facility] for further care of R ankle osteomyelitis by Orthopedics, Plastics, and Infectious Disease Patient Was transferred to TCU 07/23 for ongoing cares Iv antibiotics, wound cares She is doing ok, denies any chest pain No shortness of breath No nausea vomiting , has 5-8 loose stools after takes lactulose, no Abdominal pain Review of Systems The 10 point Review of Systems is negative other than noted in the HPI or here. Past Medical History I have reviewed this patient's medical history and updated it with pertinent information if needed. Past Medical History: Diagnosis Date ??? Alcohol use disorder, severe, dependence (H) ??? Anxiety ??? Chronic hepatitis C (H) 2016 no treatment history; normal transaminases 10/2019 ??? Depressive disorder ??? Hypothyroid ??? Opioid use disorder, severe, in sustained remission, on maintenance therapy (H) Past Surgical History I have reviewed this patient's surgical history and updated it with pertinent information if needed. Past Surgical History: Procedure Laterality Date ??? BREAST SURGERY ABcess drained ??? SECTION ??? SECTION, IMMEDIATE HYSTERECTOMY, COMBINED N/A 12/24/2016 Procedure: COMBINED SECTION, IMMEDIATE HYSTERECTOMY; Section Immediate Hysterectomy, Bilateral Salpingectomy and Cystoscopy. Baby Boy born at 20:05; Surgeon: So Luciano MD; Location: [facility] OR ??? 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 IRRIGATION AND DEBRIDEMENT FOOT, COMBINED Right 07/07/2021 Procedure: IRRIGATION AND DEBRIDEMENT, FOOT and ankle, wound vac exchange; Surgeon: Eliud Olivera MD; Location: [facility] OR ??? ORTHOPEDIC SURGERY ??? THORACIC SURGERY Social History I have reviewed this patient's social history and updated it with pertinent information if needed. Social History Tobacco Use ??? Smoking status: Current Every Day Smoker Packs/day: 0.25 Years: 10.00 Pack years: 2.50 Types: Cigarettes ??? Smokeless tobacco: Never Used ??? Tobacco comment: 5-8 cigarettes a day Substance Use Topics ??? Alcohol use: Not Currently Comment: sober since 08/2020 ??? Drug use: Not Currently Comment: sober since 2009 Family History I have reviewed this patient's family history and updated it with pertinent information if needed. Family History Problem Relation Age of Onset ??? Depression Mother ??? Thyroid Disease Mother ??? Cerebrovascular Disease Father ??? Myocardial Infarction Father ??? Substance Abuse Father ??? Cancer Maternal Grandfather ??? Substance Abuse Brother ??? No Known Problems Brother ??? Asthma Son ??? No Known Problems Sister ??? No Known Problems Brother ??? No Known Problems Sister Prior to Admission Medications Prior to Admission Medications Prescriptions Last Dose Informant Patient Reported? Taking? acetaminophen (TYLENOL) 325 MG tablet No No Sig: Take 3 tablets (975 mg) by mouth every 8 hours as needed for mild pain aspirin (ASA) 81 MG EC tablet No No Sig: Take 2 tablets (162 mg) by mouth daily buprenorphine (SUBUTEX) 8 MG SUBL sublingual tablet No No Sig: Place 1 tablet (8 mg) under the tongue 3 times daily ceFAZolin 2 g No No Sig: Inject 2 g into the vein every 8 hours cholecalciferol 50 MCG (2000 UT) tablet No No Sig: Take 1 tablet (50 mcg) by mouth daily clobetasol (TEMOVATE) 0.05 % external ointment No No Sig: Apply topically 2 times daily Apply to left arm rash diphenhydrAMINE (BENADRYL) 25 MG capsule No No Sig: Take 1 capsule (25 mg) by mouth every 6 hours as needed for itching famotidine (PEPCID) 20 MG tablet Yes No Sig: Take 20 mg by mouth 2 times daily fexofenadine (ELOISE) 180 MG tablet No No Sig: Take 1 tablet (180 mg) by mouth daily as needed for allergies folic acid (FOLVITE) 1 MG tablet No No Sig: Take 1 tablet (1 mg) by mouth daily gabapentin (NEURONTIN) 100 MG capsule No No Sig: Take 3 capsules (300 mg) by mouth At Bedtime hydrOXYzine (ATARAX) 25 MG tablet No No Sig: Take 1 tablet (25 mg) by mouth every 6 hours as needed for other or anxiety (adjuvant pain) hydrOXYzine (ATARAX) 25 MG tablet No No Sig: Take 1 tablet (25 mg) by mouth At Bedtime lactulose (CEPHULAC) 20 GM packet Yes No Sig: Take 20 g by mouth 2 times daily levothyroxine (SYNTHROID/LEVOTHROID) 125 MCG tablet Self No No Sig: Take 1 tablet (125 mcg) by mouth every morning magnesium oxide (MAG-OX) 400 MG tablet Yes No Sig: Take 400 mg by mouth 2 times daily methocarbamol (ROBAXIN) 750 MG tablet No No Sig: Take 1 tablet (750 mg) by mouth 3 times daily mineral oil-hydrophilic petrolatum (AQUAPHOR) external ointment Yes No Sig: Apply topically every 4 hours as needed for dry skin or irritation naloxone (NARCAN) 4 MG/0.1ML nasal spray No No Sig: [place] 1 spray (4 mg) into one nostril alternating nostrils once as needed for opioid reversal every 2-3 minutes until assistance arrives nicotine (NICODERM CQ) 14 MG/24HR 24 hr patch No No Sig: Place 1 patch onto the skin every 24 hours oxyCODONE (ROXICODONE) 5 MG tablet No No Sig: Take 1-2 tablets (5-10 mg) by mouth every 6 hours as needed for moderate to severe pain polyethylene glycol (MIRALAX) 17 g packet No No Sig: Take 17 g by mouth daily as needed for constipation senna (SENOKOT) 8.6 MG tablet Yes No Sig: Take 2 tablets by mouth 2 times daily senna-docusate (SENOKOT-S/PERICOLACE) 8.6-50 MG tablet No No Sig: Take 2 tablets by mouth 2 times daily thiamine (B-1) 100 MG tablet No No Sig: Take 1 tablet (100 mg) by mouth daily triamcinolone (KENALOG) 0.1 % external ointment No No Sig: Apply topically 2 times daily Apply to rash areas other than L arm venlafaxine (EFFEXOR-XR) 150 MG 24 hr capsule No No Sig: Take 1 capsule (150 mg) by mouth daily Patient taking differently: Take 300 mg by mouth daily Facility-Administered Medications: None Allergies No Known Allergies Physical Exam Vital Signs: Temp: 97.2 ??F (36.2 ??C) Temp src: Oral BP: 114/72 Pulse: 89 Resp: 18 SpO2: 98 % O2 Device: None (Room air) Weight: 179 lbs 8 oz General appearence: awake alert In no apparent distress HEENT: EOMI, PEARLA, sclera nonicteric, moist, mucus membranes, NECK : supple RESPIRATORY: lungs clear to auscultation bilateral, no wheezing or crackles CARDIOVASCULAR:S1 S2 regular rate and rhythm, no rubs gallops or murmurs appreciated GASTROINTESTINAL:soft, non-distended , non-tender , + bowel sounds, no masses felt SKIN: warm and dry, no mottling noted , some skin irritation in left upper arm at site of PIC, few excoriation over chest wall , few lesions over lower extremities no open wounds NEUROLOGIC; awake alert and oriented, no focal deficits found EXTREMITIES: no clubbing, cyanosis or edema , moves all extremity, good pedal pulses MUSCULOSKELETAL: without deformity , has wound vac over right lat ankle Data Data reviewed today: I reviewed all medications, new labs and imaging results over the last 24 hours. Recent Labs Lab 07/21/21 1512 07/19/21 0819 WBC 4.4 4.9 HGB 9.8* 9.9* MCV 94 94 PLT 166 152 No results found for this or any previous visit (from the past 24 hour(s)). documented in this encounter Consult Notes Lex Sen MD - 08/16/2021 12:40 PM CDTAssociated Order(s): DERMATOLOGY IP CONSULT [facility] Inpatient Teledermatology Store and Forward Consult Note Date of Admission: 07/23/2021 Encounter Date: 08/16/21 Reason for Consultation: New rash on the neck and upper chest. Patinet is known to derm team from previous consultation Assessment/Recommendations: # Monomorphic erythematous papules and pustules Clinical impression of sudden onset of monomorphic follicular papules and pustules several weeks after starting topical steroids is most consistent with steroid acne. The lesions of steroid acne, unlike acne vulgaris, are often of uniform size and symmetric distribution. The chest and back are sites of predilection after systemic steroid use. Steroid acne does not usually leave scars and clears with discontinuation of the inciting medication. Also included in the differential is possible bacterial folliculitis, for which Staphylococcus aureus and Streptococcus species are commonly implicated. Overall, the initial treatment would remain similar, as outlined below. Recommendations: - Stop all topical steroids (including triamcinolone and clobetasol) - Obtain bacterial culture swab of pustule (e.g. knick a pustule with sharp 11 blade and swab purulent material) to evaluate for infectious etiology - Start topical clindamycin lotion BID to affected areas - Can consider 2 week course of doxycycline 100 mg BID Thank you for this teledermatology consultation. Dermatology will sign-off at this time. Please do not hesitate to contact with any additional questions or concerns. Attending physician: Dr. Mckinley Vanessa MD Dermatology Resident [facility] I reviewed all available images and relevant chart information, and agree with the assessment and plan as documented in the resident's note. Lex Sen MD Dermatology Attending Dermatology Problem List: # irritant vs allergic contact dermatitis (possibly due to adhesives from PICC line dressing) with disseminated id reaction - improved with topical steroids # Monomorphic erythematous papules and pustules - ddx steroid acne vs folliculitis - tx: topical clinda, consider doxy Relevant History: Based on chart review and direct communication with consulting team This is a 40yo female with history of opioid use disorder, alcohol use disorder, HCV, hypothyroidism, depression, anxiety, and tobacco abuse, initially admitted to [facility] from [facility] on 07/06/21 for R ankle osteomyelitis & MSSA bacteremia, then transferred to TCU 07/23/21 for continued IV antibiotics and wound care. Derm was first consulted 07/16/21 for an itchy rash on patient's arms and legs, initially thought to be possibly urticaria. Last derm note 07/17/21 recommended topical steroids for treatment of contact dermatitis and disseminated id reaction. Derm was re-consulted for new rash on patient's neck and upper chest 08/16. Patient has now been on both topical clobetasol and topical triamcinolone BID for a month. The prior contact dermatitis and idreaction seems to be much improved now. However, primary team noticed new follicular papules and pustules on the upper chest and neck ~08/13. Triamcinolone was stopped 08/15, however patient still receiving topical clobetasol at this time. Physical exam: Clinical photographs reviewed - Anterior neck and upper trunk with many monomorphic follicular erythematous papules and pustules Past Medical History: Patient Active Problem List Diagnosis ??? CARDIOVASCULAR SCREENING; LDL GOAL LESS THAN 160 ??? Anxiety ??? Moderate major depression (H) ??? Uncomplicated opioid dependence (H) ??? Supervision of high-risk ??? Current every day smoker ??? Hypothyroidism affecting in first trimester ??? High-risk , first trimester ??? Twin with loss and retention of one fetus in first trimester ??? History of depression ??? Chronic hepatitis C without hepatic coma (H) ??? Family history of SIDS (sudden infant syndrome) ??? History of anomaly in prior , currently , first trimester ??? Current with history of pre-term labor, first trimester ??? History of 2 sections ??? History of stillbirth ??? H/O rupture of uterus ??? History of MRSA infection ??? Cardiac abnormality in fetus ??? MRSA infection greater than 3 months ago ??? Myopia of both eyes ??? premature rupture of membranes (PPROM) delivered, current hospitalization ??? S/P emergency hysterectomy ??? Alcohol abuse, continuous ??? Alcohol withdrawal syndrome, with unspecified complication (H) ??? Alcohol withdrawal syndrome without complication (H) ??? Osteomyelitis of right ankle, unspecified type (H) ??? Physical deconditioning ??? Non-healing surgical wound, subsequent encounter Medications: Current Facility-Administered Medications Medication ??? - Skin Test Reading - ??? acetaminophen (TYLENOL) tablet 975 mg ??? aspirin EC tablet 162 mg ??? buprenorphine (SUBUTEX) sublingual tablet 8 mg ??? ceFAZolin (ANCEF) intermittent infusion 2 g in 100 mL dextrose PRE-MIX ??? clobetasol (TEMOVATE) 0.05 % ointment ??? diphenhydrAMINE (BENADRYL) capsule 50 mg Or ??? diphenhydrAMINE (BENADRYL) injection 50 mg ??? EPINEPHrine (ADRENALIN) kit 0.3 mg ??? famotidine (PEPCID) tablet 20 mg ??? fexofenadine (ELOISE) tablet 180 mg ??? folic acid (FOLVITE) tablet 1 mg ??? gabapentin (NEURONTIN) capsule 300 mg ??? hydrOXYzine (ATARAX) tablet 25 mg ??? hydrOXYzine (ATARAX) tablet 25 mg ??? lactulose (CEPHULAC) Packet 20 g ??? levothyroxine (SYNTHROID/LEVOTHROID) tablet 125 mcg ??? lidocaine (XYLOCAINE) 4 % solution ??? melatonin tablet 3 mg ??? methocarbamol (ROBAXIN) tablet 750 mg ??? miconazole (MICATIN) 2 % powder ??? mineral oil-hydrophilic petrolatum (AQUAPHOR) ??? naloxone (NARCAN) injection 0.2 mg Or ??? naloxone (NARCAN) injection 0.4 mg Or ??? naloxone (NARCAN) injection 0.2 mg Or ??? naloxone (NARCAN) injection 0.4 mg ??? nicotine (NICODERM CQ) 14 MG/24HR 24 hr patch 1 patch ??? nicotine Patch in Place ??? Nurse may request from Pharmacy a change of form of medication (e.g. Liquid to tablet). ??? ondansetron (ZOFRAN ODT) ODT tab 4 mg ??? oxyCODONE (ROXICODONE) tablet 5 mg ??? polyethylene glycol (MIRALAX) Packet 17 g ??? senna-docusate (SENOKOT-S/PERICOLACE) 8.6-50 MG per tablet 2 tablet ??? sodium chloride (PF) 0.9% PF flush 3 mL ??? sodium chloride (PF) 0.9% PF flush 3 mL ??? thiamine (B-1) tablet 100 mg ??? venlafaxine (EFFEXOR XR) 24 hr capsule 300 mg ??? Vitamin D3 (CHOLECALCIFEROL) tablet 2,000 Units Staff Involved: Resident/Staff documented in this encounter Miscellaneous Notes Plan of Care - Van Corona, CAR [employer] INST[employer]ER - 08/22/2021 3:45 PM CDT Speech Language Therapy Discharge Summary Reason for therapy discharge: Discharged to home. Progress towards therapy goal(s). See goals on Care Plan in Epic electronic health record for goal details. Goals met Therapy recommendation(s): No further therapy is recommended. Pt met all cognitive-linguistic goals with TCU [employer]. Plan of Care - Brittnee Scott RN - 08/22/2021 2:14 PM CDT Care Coordination: Discharge Plan: Home care agency: [facility] Home Care Patient will receive intermediate through this agency at discharge. Incision Care: Patient will need to demonstrate dressing change prior to discharge. Please send home enough dressing supplies until next follow up with plastics in 1 week. Discharge date: Today or tomorrow pending if patient can get transport set up to clinic and then home. Brittnee Scott Patient Sports Medicine Physician Acute Rehabilitation Unit/ Transitional Care Unit. Plan of Care - Maryam Rose RN - 08/22/2021 1:39 PM CDT Goal Outcome Evaluation: Alert and oriented x 4. Denies chest pain and SOB. Went for her ortho appointment and wound vac was removed. Discharge has been placed but d/t some reasons she will not be discharge today.Kiln Packer explained to her that she cannot go there as an outpatient not unless she was discharge to us and can make an appointment with the recovery clinic, pt insisted to go there. Brought by underwriter mortgage loan and a trainee andnurse explained to her the same information that the underwriter mortgage loan told her. Explained to pt that she couldnot have any doses of Subutex and will missed 1 dose for today and pt stated that she has stock fromhome.Kiln Packer explained the kind of medications, how she will take them and the time she will take them. Pt hurrying up everybody and do not time to listen Rides came at 1530 and discharge via walker with 2 people assist. Patient's most recent vital signs are: Vital signs: BP: 117/55 Temp: 97.8 HR: 96 RR: 18 SpO2: 97 % Patient does not have new respiratory symptoms. Patient does not have new sore throat. Patient does not have a fever greater than 99.5. Plan of Care - Brittnee Scott RN - 08/22/2021 12:02 PM CDT Referrals were made to the following agencies: [facility]: Not accepting new clients at this time due to staffing issues. [facility]: Not accepting new clients for patients living area. [facility]: Left for return call [facility]: Was able to accept patient to care for intermediate. Faxed over clinicalsand discharge summary. Brittnee Scott Patient Sports Medicine Physician Acute Rehabilitation Unit/ Transitional Care Unit. Plan of Care - Liza Lloyd RN - 08/22/2021 4:00 AM CDT Goal Outcome Evaluation: No acute issues overnight. Has no c/o's pain, discomfort, CP and SOB. Usual requests for snacks of ice cream, pudding and gissell crackers. Also has a couple food trays still in room I pick at it through the night. Up indep.to BSC. RLE gus-wrapped and w/CAM boot on, wound vac @ -125mmHg continuous suction- minimal output since placed last week. Has 1wk post-op appt.this AM / pickup @ 0930 via wheelchair. 0515 - Requested and rec'd Tylenol and Ibuprofen for toothache. Patient's most recent vital signs are: Vital signs: BP: 122/67 Temp: 96.8 HR: 85 RR: 16 SpO2: 97 % Patient does not have new respiratory symptoms. Patient does not have new sore throat. Patient does not have a fever greater than 99.5. Plan of Care - Radames Kee RN - 08/21/2021 11:15 PM CDT Goal Outcome Evaluation: Pt is alert and oriented X4. Able to make needs known. Denies SOB, chest pain, N/V. Pt completed IV ABT, no adverse reaction to ABT, RPIV pulled following completion of ABT. When underwriter mortgage loan updated pt thatABT course was completed and was going to pull IV, PT grabbed dressing and ripped dressing/IV line out in one fast ripping motion. Site was bleeding. Area cleaned and dressing applied. Dressing to right thigh intact. Fluid has collected underneath but not leaking out of dressing. Wound vac to right ankle WNL. PRN advil X2 and MPAP X1 per APR. Patient's most recent vital signs are: Vital signs: BP: 122/67 Temp: 96.8 HR: 85 RR: 16 SpO2: 97 % Patient does not have new respiratory symptoms. Patient does not have new sore throat. Patient does not have a fever greater than 99.5. Plan of Care - Marlena Castellanos PTA - 08/21/2021 12:10 PM CDT [facility] PT: Recert Date: 08/22/2021 Discharge Plan: Home to [place], [place] in house with 4 ILANA with dependent children (14,8,4). Precautions: New WB orders unclear. Per Hospitalist on 08/21/21. Pt to be NWB on RLE until clarification from surgical appt 08/22/21. Current Status: Bed Mobility: IND Transfer: Davina in room with knee scooter during the day. Gait: 275 ft with knee scooter, SBA. 08/08 pt progressing with amb with WW up to 60'x 2 pt cont to work on equal step and WB. Stairs: pt demo up and down 3x3 steps in PT gym with Herbert rails needing SBA to mod I. V.c for tech/ Balance: Able to remain with NWB on R for ~ 15 sec with SBA without support Assessment: Upon approach, Pt was sleeping and difficult to arouse. Once aroused and sitting upright, Pt began to eat food and talking on cell phone w/Pt's mother. Completed IND activities today. Unable to complete stairs and gait d/t WB restrictions. Pt continues to require set up assist d/t safety concerns and Pt continues to have difficulty maintaining WB restrictions. Per discussion with Hospitalist, Pt to maintain NWB w/cam boot and wound vac until after surgical appt on 08/22/21. Other Barriers to Discharge (DME, Family Training, etc): Will need knee scooter, potentially crutches for stair training. Plan of Care - Roxy Bautista RN - 08/21/2021 9:52 AM CDT VS: See below O2: none Output: Patient uses the bedside commode, and staff empties Last BM: 08/21/21 Activity: Up in the room independently, weight bear as tolerated on RLW Skin: Wound vac on RLE at 125 mmhg, dressing to right up skin graft area. Right upper skin graft site intact, there is drainage under the dressing. Pain: Yes, patient c/o of pain on the right side of her mouth, see needs to see the Dentist. Also,she C/o of R/E foot pain. CMS: intact Dressing: Dressings intact,see above skin sections and flow sheets Diet: Regular LDA: PIV right hand Equipment: Commode, IV pump and pole Plan: Continue with IV antibiotics, today is the last day for them. Patient to discharge tomorrow ifif the Surgeon gives the ok. Additional Info: Patient is alert x 4 , she takes her medications whole. She likes pudding and ice cream. Patient sleeps most of the shift and needs encouragement to do cares for herself. Patient's most recent vital signs are: Vital signs: BP: 117/57 Temp: 98.2 HR: 99 RR: 16 SpO2: 97 % Patient does not have new respiratory symptoms. Patient does not have new sore throat. Patient does not have a fever greater than 99.5. Goal Outcome Evaluation: Plan of Care Reviewed With: patient Plan of Care - Liza Lloyd RN - 08/21/2021 4:57 AM CDT Goal Outcome Evaluation: No acute issues overnight. Continues IV abx via PIV R hand. Complete bed linen change done as pt.spilled her drinks. RLE w/CAM boot on and vac intact/patent @ -125mmHg continuous suction / minimal output in cannister - has 1wk post-op appt.tomorrow AM. Indep.to BSC - continent of bladder. Requests snacks of gissell crackers, ice cream and pudding regularly. 0530 - Pt.continent lrg.soft>formed [place]/brown stool. Patient's most recent vital signs are: Vital signs: BP: 117/51 Temp: 98.4 HR: 99 RR: 16 SpO2: 97 % Patient does not have new respiratory symptoms. Patient does not have new sore throat. Patient does not have a fever greater than 99.5. Plan of Care - Radames Kee RN - 08/20/2021 11:00 PM CDT Goal Outcome Evaluation: Pt is alert and oriented X4. Able to make needs known. Denies SOB, chest pain, N/V. Pt had right PIVin hand. Dressing reinforced, flushed easily. Dressing to right thigh intact. Fluid has collected underneath but not leaking out of dressing. Wound vac to right ankle WNL. PRN advil and MPAP X1 per APR. Patient's most recent vital signs are: Vital signs: BP: 117/51 Temp: 98.4 HR: 99 RR: 16 SpO2: 97 % Patient does not have new respiratory symptoms. Patient does not have new sore throat. Patient does not have a fever greater than 99.5. Plan of Care - Roxy Bautista RN - 08/20/2021 9:49 AM CDT VS: See below O2: none Output: See flow sheets Last BM: 08/20/21 Activity: Up Mod I, WBAT Skin: See flow sheets. Dressing to right upper thigh intact, wound vac to right L/E patent at 125 mmhg Pain: Yes c/o of right L/E pain, had Tylenol at 0306 on scheduled Robaxin CMS: intact Dressing: See above skin Diet: regular LDA: Right arm Equipment: Wound Vac, IV pole and pump. Bedside commode Plan: Continue with IV antibiotics and monitor Wound Vac and dressing on right upper thigh. Additional Info: Patient is alert x 4 and directs her needs. Patient takes her medications whole. Patient likes her vanilla pudding and sweets. I removed her cam boot on her RLE and washed her foot. Patient needs encouragement to do things for herself. Patient's most recent vital signs are: Vital signs: BP: 130/68 Temp: 97.7 HR: 96 RR: 18 SpO2: 97 % Patient does not have new respiratory symptoms. Patient does not have new sore throat. Patient does not have a fever greater than 99.5. Goal Outcome Evaluation: Plan of Care Reviewed With: patient Plan of Care - Frederick Jack RN - 08/20/2021 7:05 AM CDT Pt is A&OX4, calm, & cooperative with care. Denied CP, SOB, & n/v. Pt is MOD I to the BS. Continent for both B&B and uses BS. Takes med whole with thin liquid. Pt c/o tooth ache &managed pain with PRN tylenol & atarax. R foot wound vac running at 125 mmHg & dressing CDI.R wrist PIV patent and dressing CDI. Pt is able to make needs known & call light within reach. Continue with plan of care. Patient's most recent vital signs are: Vital signs: BP: 130/68 Temp: 97.7 HR: 96 RR: 18 SpO2: 97 % Patient does not have new respiratory symptoms. Patient does not have new sore throat. Patient does not have a fever greater than 99.5. Plan of Care - Frederick Jack RN - 08/19/2021 11:03 PM CDT Pt is A&OX4, calm, & cooperative with care. Denied CP, SOB, & n/v. Pt is MOD I to the [facility]. Continent for both B&B and uses BSC. Takes med whole with thin liquid. C/o left knee pain managed with scheduled pain meds (voltaren gel). Pt c/o tooth pain & managed with PRN meds. Pt had good appetite and ate 100% of dinner & ordered 1 more tray for the night. R foot wound vac running at 125 mmHg & dressing CDI. IV abx administered without difficulty. Pt reported that L wrist PIV came off. Called IV flyer and replaced new PIV on R wrist. R wrist PIV patent & dressing CDI. Pt is able to make needs known & call light within reach. Continue with plan of care. Patient's most recent vital signs are: Vital signs: BP: 130/68 Temp: 97.7 HR: 96 RR: 18 SpO2: 97 % Patient does not have new respiratory symptoms. Patient does not have new sore throat. Patient does not have a fever greater than 99.5. Plan of Care - Roxy Bautista RN - 08/19/2021 10:26 AM CDT VS: See below O2: none Output: See flow sheets. Last BM: Today Activity: Up to commode WBAT with SBA Skin: Surgical wound right ankle with wound vac at 125 mmhg Pain: Yes c/o of right surgical site pain, had prn Tylenol 0945 CMS: intact Dressing: Wound vac dressing intact and right upper graft site dressing intact Diet: Regular LDA: PIV left arm Equipment: IV pump and pole, commode,wheel chair Plan: Continue with IV antibiotics and monitor for any signs of infections and medicate for pain as ordered. Additional Info: Patient likes pudding. Patient takes her medications with water. Patient talks on her phone and sleeps on and off. Patient's most recent vital signs are: Vital signs: BP: 128/68 Temp: 97.8 HR: 95 RR: 16 SpO2: 96 % Patient does not have new respiratory symptoms. Patient does not have new sore throat. Patient does not have a fever greater than 99.5. Goal Outcome Evaluation: Plan of Care Reviewed With: patient Plan of Care - Brice Ni SLP - 08/19/2021 8:53 AM CDT [facility] [employer] INST[employer]ER: Discharge Plan: no ongoing [employer] INSTALLER interventions Precautions: IV antibiotics Current Status: Communication: WNL expressive and receptive language Cognition: Mild cognitive impairment- memory, attention, executive function/visuospatial deficits. Swallow: Regular/thin; not formally assessed on TCU Assessment: Patient completed [employer] task #3, identifying appropriate gift option for task and rationale for choosing this option and not choosing other options with 50% accy IND, increasing to 100% accy with moderate auditory cues (telling patient to identify reasons from conversation handout). Patient did select appropriate option accurately. Patient answered other inferential questions regarding item choices and reviewing other options giving appropriate rationale with 100% accy provided occasional (20-49%) moderate auditory cues. Other Barriers to Discharge (Family Training, etc): none noted at this time. Care Plan - Jennifer Vaca RN - 08/19/2021 5:43 AM CDT Patient is A x Ox4. Had abx at 0100. Denies SOB and chest pain. Able to make needs known. Independent with repositioning. Communicates her needs. Call light is within reach and answered in person. Willcontinue POC Patient's most recent vital signs are: Vital signs: BP: 127/74 Temp: 98.4 HR: 97 RR: 18 SpO2: 97 % Patient does not have new respiratory symptoms. Patient does not have new sore throat. Patient does not have a fever greater than 99.5. Plan of Care - Frederick Jack RN - 08/18/2021 9:23 PM CDT Pt is A&OX4, calm, & cooperative with care. Denied CP, SOB, & n/v. Pt is MOD I to the BS. Continent for both B&B and uses BSC. Takes med whole with thin liquid. C/o left knee pain managed with scheduled pain meds (voltaren gel), hot, & cold packs. Pt's c/o upper chest and neck rash itches and managed with scheduled cream. Pt had good appetite and ate 100% of dinner & ordered 1 more tray for the night. R foot wound vac running at 125 mmHg & dressing CDI. IV abx administeredwithout difficulty. L wrist PIV was removed due to dressing pulled off with the pt fidgeting with it. Flyer IV personnel notified since pt has IV abx due at 0100. Pt is able to make needs known & call light within reach. Continue with plan of care. Patient's most recent vital signs are: Vital signs: BP: 127/74 Temp: 98.4 HR: 97 RR: 18 SpO2: 97 % Patient does not have new respiratory symptoms. Patient does not have new sore throat. Patient does not have a fever greater than 99.5. Plan of Care - Roxy Bautista RN - 08/18/2021 11:16 AM CDT VS: See below O2: none Output: See flow sheets Last BM: today Activity: Up to commode with SBA of one Skin: See flow sheets Pain: Yes C/o of GI upset and left knee pain. saw the patient . Maalox and Voltaren ordered. CMS: intact Dressing: Wound vac to right LE intact at 125 hgm continuous, and graft site dressing intact. Diet: regular LDA: PIV left arm Equipment: Wound vac, commode, IV pump and pole Plan: Continue with IV antibiotics and present plan of cares. Additional Info: Patient is alert x 4 and she directs her needs. Patient likes pudding and takes hermedications with water. Patient's most recent vital signs are: Vital signs: BP: 106/62 Temp: 95.8 HR: 96 RR: 16 SpO2: 96 % Patient does not have new respiratory symptoms. Patient does not have new sore throat. Patient does not have a fever greater than 99.5. Goal Outcome Evaluation: Plan of Care Reviewed With: patient Plan of Care - Roxy Bautista RN - 08/18/2021 11:00 AM CDT Goal Outcome Evaluation: Patient requesting to see the MD, see is requesting prn pain medication. Patient also c/o of heart burn. MD notified and Joonalord ordered and knows she wants to see him. Plan of Care - Frederick Jack RN - 08/18/2021 7:21 AM CDT Pt is A&OX4, calm, & cooperative with care. Denied CP, SOB, & n/v. Pt is MOD I to the BSC. Continent for both B&B and uses BSC. Takes med whole with thin liquid. R foot wound vac running at 125 mmHg & dressing CDI. L wrist PIV patent and dressing CDI. Pt is able to make needs known & call light within reach. Continue with plan of care. Patient's most recent vital signs are: Vital signs: BP: 125/59 Temp: 96.8 HR: 87 RR: 16 SpO2: 97 % Patient does not have new respiratory symptoms. Patient does not have new sore throat. Patient does not have a fever greater than 99.5. Plan of Care - Frederick Jack RN - 08/17/2021 11:47 PM CDT Pt is A&OX4, calm, & cooperative with care. Denied CP, SOB, & n/v. Pt is MOD I to the BS. Continent for both B&B and uses BSC. Takes med whole with thin liquid. C/o left knee pain managed with scheduled pain meds, hot, & cold packs. Pt's c/o upper chest and neck rash itches and managed with scheduled cream. Pt with good appetite and ate 100% of dinner & ordered 1 more tray for the night. R foot wound vac running at 125 mmHg & dressing CDI. R forearm PIV removed due to swell ing and inserted new L wrist PIV. Pt is able to make needs known & call light within reach. Continue with POC. Patient's most recent vital signs are: Vital signs: BP: 125/59 Temp: 96.8 HR: 87 RR: 16 SpO2: 97 % Patient does not have new respiratory symptoms. Patient does not have new sore throat. Patient does not have a fever greater than 99.5. Care Plan - So Rojas RN - 08/17/2021 4:16 PM CDT Sleeps off and on during the day. Mod I to commode. Had large BM this afternoon. Wound vac intact-dressing right thigh donor site intact. Has follow up Plastics appointment next week for wound vac and donor site dressing checks.(08/22) Wearing CAM boot. Eats frequently throughout the day-meal trays, pudding, ensure,etc. Wants oxycodone re-ordered, but had order for a specific amount of tablets after surgery, and then to be discontinued, as had just been weaned from this medication due to history of ETOH, substance abuse. I gave her tylenol for pain this afternoon which is effective. New orders for treatment for pimples, acne on face, chest, and neck. Face is swollen. Flat affect. Patient's most recent vital signs are: Vital signs: BP: 115/60 Temp: 97.5 HR: 86 RR: 18 SpO2: 98 % Patient does not have new respiratory symptoms. Patient does not have new sore throat. Patient does not have a fever greater than 99.5. Plan of Care - Smita Hoffman RN - 08/17/2021 9:34 AM CDT Kiln Packer had checked in on patient on 08/16, pt reported doing well and showing underwriter mortgage loan her new wound vac. Pt reported no current concerns that needed addressing. Kiln Packer circled back regarding interest inCOVID vaccine of which patient said that she would like to have the vaccine here on TCU. Kiln Packer infor med Provider to discuss with patient and order if appropriate. New orders in place for vaccine. 0908/17/2021: underwriter mortgage loan approached patient with COVID-19 Screening and Consent of which pt reported,after a lot of thinking, I don't want the vaccine. I have already had the vaccine once and I don't want another one. Kiln Packer discussed risks/benefits of vaccine; patient declined. Kiln Packer left information packet at bedside should patient be interested in the future. Plan of Care - Evelyn Ascencio RN - 08/17/2021 6:11 AM CDT Report received from evening nurse that pt constantly argued with the nurse regarding her completed PRN order of oxycodone. At the beginning of the shift superintendent, pt called underwriter mortgage loan and asked about her oxycodone prescription. Kiln Packer explained to her that the oxycodone order was discontinued after last dose taken around 1900 on 08/16. She stated that she gave 2 bottles of meds to staff at 5pm on 08/15 aftershe came back from surgery. One of them is a bottle filled with her prescribed oxycodone. She said that her daughter gave her the meds, which were prescribed by her doctor. She stated that she does notremember the staff's name but knows the staff. She described that the staff is a blonde lady. She ankit d that the staff stated that meds are not allowed to be kept in patients' room and would be returnedafter discharge. So, the staff took the two bottles from her bag and left. Kiln Packer asked her if any security was there when she gave the meds to the staff. She said no. Kiln Packer called pharmacy but pharmacy responded that they did not take any meds from the patient. Message sent to education program manager and DON. Pt alert and oriented. No s/s of SOB and chest pain noted. Assist of 1 with ADLs. Continent bladder,using BSC. Call light within reach. Bed alarm on for safety. Contact precaution maintained. Will continue POC. Patient's most recent vital signs are: Vital signs: BP: 105/65 Temp: 97.8 HR: 96 RR: 18 SpO2: 98 % Patient does not have new respiratory symptoms. Patient does not have new sore throat. Patient does not have a fever greater than 99.5. Plan of Care - Maryam Rose RN - 08/16/2021 7:54 PM CDT Goal Outcome Evaluation: [id number]: Pt was alert and oriented x 4. Denies chest pain and SOB. Pt is Mod I in the room.With wound Vac andhad a serosanguinous drainage.Dressing on R ankle is CDI. No alarm during the shift. Pt has rashes on her neck and sometimes complaining of itchiness.Ordered cream was applied and pt stated it helps incontrolling the itchiness Pain was manage by scheduled Tylenol . Ate with good appetite lunch and dinner.Sleep in between cares.Pt insist on the PRN Oxycodone explained to pt that she only has 6 doses remaining and she already take them pt stated clarification with that order. Put a sticky note with provider. Anxious when ever she could not get Oxycodone underwriter mortgage loan offered pudding, ice cream and bucket of ice. Pt will settle for a while.Call light with in reach. Continue with current plan of care. Patient's most recent vital signs are: Vital signs: BP: 105/65 Temp: 97.8 HR: 96 RR: 18 SpO2: 98 % Patient does not have new respiratory symptoms. Patient does not have new sore throat. Patient does not have a fever greater than 99.5. Plan of Care - Liza Lloyd RN - 08/16/2021 4:07 AM CDT Goal Outcome Evaluation: Pt.A&Ox4. Had STSG to R ankle yesterday - donor site R thigh. LLE gus wrapped and wearing CAM boot - also w/wound vac @ 125mmHg continuous suction. Per report, staff to leave alone until seen post-op next Fri.08/22. Continues IV abx via PIV L forearm. Requests snacks frequently, gissell crackers, ice cream and pudding. Medicated with Oxycodone 5mg po q4hrs - last @ 0430. Patient's most recent vital signs are: Vital signs: BP: 133/79 Temp: 96.9 HR: 92 RR: 16 SpO2: 98 % Patient does not have new respiratory symptoms. Patient does not have new sore throat. Patient does not have a fever greater than 99.5. Plan of Care - Nevin Holm RN - 08/15/2021 10:54 PM CDT Goal Outcome Evaluation: Plan of Care Reviewed With: patient Overall Patient Progress: no change Outcome Evaluation: Patient returned from surgery at 1700. Patient requested oxycodone 10 mg every 4hours. Provider paged and order is for 5 mg every 4 hours. Oxycodone last given at 1999. Right thighgraft and right boot to remain in place until August 22 f/u with surgeon. MICHAEL WBADONIS. Orientation: A/O x4 Bowel: Continent using BSC; LBM 08/15/21 Bladder: Continent Pain: R thigh and right foot Ambulation/Transfers: A1 walker Diet/ Liquids/ Pills: Regular, thin. Whole. Tubes/ Lines/ Drains: R forearm PIV Skin: Right foot and right thigh graft Plan of Care - Petrona Holland RN - 08/15/2021 12:19 PM CDT A&Ox4. Independent. Continent of both bowel and bladder- uses bedside commode. LBM 08/15. Denies pain, SOB, chest pain, numbness or tingling. NPO for surgery at 1430. MD was notified about rash in chest and neck. Pt left unit at 1215 for procedure. Patient's most recent vital signs are: Vital signs: BP: 106/81 Temp: 96.9 HR: 78 RR: 18 SpO2: 97 % Patient does not have new respiratory symptoms. Patient does not have new sore throat. Patient does not have a fever greater than 99.5. Plan of Care - SAM BAEZ - 08/15/2021 5:01 AM CDT Goal Outcome Evaluation: Patient on NPO at this time, Preparing for surgery . A/O x4. Continent of bowel and bladder. A1 withwalker. Patient on regular diet thin fluids. Rt. Forearm PIV intact. Patient's most recent vital signs are: Vital signs: BP: 112/62 Temp: 97.6 HR: 76 RR: 18 SpO2: 97 % Patient does not have new respiratory symptoms. Patient does not have new sore throat. Patient does not have a fever greater than 99.5. Plan of Care - Nevin Holm RN - 08/14/2021 10:47 PM CDT Goal Outcome Evaluation: Plan of Care Reviewed With: patient Overall Patient Progress: no change Outcome Evaluation: Surgery scheduled for right foot 08/15/21. Patient had shower and negative COVID swab resulted. NPO to begin at 0500 08/15/21. Kiln Packer informed patient. Right foot dressing changed after shower. Orientation: A/O x4 Bowel: Continent using BSC; LBM 08/13/21 Bladder: Continent Pain: Tooth ache Ambulation/Transfers: A1 walker Diet/ Liquids/ Pills: Regular, thin. Whole. Tubes/ Lines/ Drains: R forearm PIV Skin: Right foot Plan of Care - Marlena CastellanosREFUGIO - 08/14/2021 4:03 PM CDT [facility] PT: Recert Date: 08/22/2021 Discharge Plan: Home to [place], [place] in house with 4 ILANA with dependent children (14,8,4). Precautions: WBAT on R LE for short distances , Falls, per provider's (Rogelio Treadwell MD) note from 07/31/21 ortho appt: The patient is allowed to proceed with weightbearing as tolerated for short distances. Otherwise, she will have to remain nonweightbearing. Current Status: Bed Mobility: IND Transfer: Davina in room with knee scooter during the day. Gait: 275 ft with knee scooter, SBA. 08/08 pt progressing with amb with WW up to 60'x 2 pt cont to work on equal step and WB. Stairs: pt demo up and down 3x3 steps in PT gym with Herbert rails needing SBA to mod I. V.c for tech/ Balance: Able to remain with NWB on R for ~ 15 sec with SBA without support Assessment: Focus on gentle R ankle ROM and LE strengthening activities. Gentle R ankle ROM w/skateboard for warm up: 2 bouts x 1 min. Attempted towel scrunching w/R toes. Pt unable to flex toes to scrunch towel d/t continued swelling. Pt able to complete w/L foot but unable w/R foot at this time. Stairs for ankle ROM and LE strenghtening: ascend/descend 6 - 6 stairs x 2 bouts, B HR, close SBA. Pt able to ascend w/step over pattern and descend with step to pattern. In //, gait activity utilizing 2blue mat for amb 50ft x 2 bouts, SBA d/t some unsteadiness. Pt reported amb on soft mat felt good on my R ankle. Pt displayed improved R ankle ROM and steadiness with second bout. STS from w/c w/2 foam pads under B feet for 1 set x 12 reps, BUE on //. Pt reported that was really hard. I am tired.Pt agreeable to return to unit after surgical procedure tomorrow as it will allow Pt to plan for discharge home, address any medical concerns after procedure and continue to progress R ankle ROM and str engthening for increased ease with functional activities.. Other Barriers to Discharge (DME, Family Training, etc): Will need knee scooter, potentially crutches for stair training. Plan of Care - Roxy Bautista RN - 08/14/2021 3:57 PM CDT VS: See below O2: none Output: See flow sheets Last BM: today Activity: Up to commode at bedside independently. Skin: Right ankle wound, dressing changed this am. Rash dry raised areas under her chin and on upperarms. Medication applied per orders. Patient has red areas under abdominal folds and andrzej area, I cleaned these areas and applied powder per MD orders. Pain: Yes, patient c/o of right foot pain. On scheduled pain medications with some relief. CMS: intact Dressing: Right L/E foot Diet: regular LDA: PIV right ar Equipment: W/c, IV pole and pump, commode Plan: Patient will have a flap surgery tomorrow at [facility], customer service supervisor at 1215. Patient needs a shower this pm and in am. Surgery is a same day and she will return to our unit after surgery. Patient is aware of the showers and time of her surgery. Additional Info: Patient is alert x 4 and she directs her cares. Patient takes her medications with water. Patient's most recent vital signs are: Vital signs: BP: 124/67 Temp: 98.3 HR: 81 RR: 20 SpO2: 97 % Patient does not have new respiratory symptoms. Patient does not have new sore throat. Patient does not have a fever greater than 99.5. Goal Outcome Evaluation: Plan of Care Reviewed With: patient Plan of Care - Frederick Jack RN - 08/14/2021 7:03 AM CDT Pt is A&OX4, calm, & cooperative with care. Denied CP, SOB, & n/v. Independent in the room. Pt is continent for both B&B; uses BSC. R PIV was patent and dressing was CDI. IV abx infusedper order without difficulty. Takes med whole with thin liquid. Pt slept well throughout the night. Pt is able to make needs known and call light within reach. Continue with plan of care. Patient's most recent vital signs are: Vital signs: BP: 121/63 Temp: 97.3 HR: 83 RR: 18 SpO2: 95 % Patient does not have new respiratory symptoms. Patient does not have new sore throat. Patient does not have a fever greater than 99.5. Plan of Care - Perico Lou, GENARO - 08/13/2021 9:56 PM CDT Patient is alert and oriented x 4. Able to communicate needs. Afebrile, VSS on RA. SBA with transfers. I with bed mobility. Regular diet, no concern with appetie. Continent of bowel & bladder. PIV place in by Vascular team. IV ABX infused per order. Pain comfortably manageable. Denies any cough, chest pain, SOB, dificulty breathing, lightheadedness or dizziness. Call light with in reach. Patient's most recent vital signs are: Vital signs: BP: 121/63 Temp: 97.3 HR: 83 RR: 18 SpO2: 95 % Patient does not have new respiratory symptoms. Patient does not have new sore throat. Patient does not have a fever greater than 99.5. Plan of Care - Roxy Bautista RN - 08/13/2021 11:53 AM CDT VS: See below O2: none Output: See flow sheets Last BM: Today 08/13 Activity: Up to commode to have a BM and to void Skin: Pain: Yes c/o of Teeth pain, right ankle pain. Patient had Tylenol this am before therapy CMS: No change Dressing: CDI to right ankle Diet: regular LDA: Piv Left arm Equipment: W/c, commode, IV Pump Plan: Patient to have surgery on Friday08/15/21 Additional Info: Patient is alert x 4 and she can direct her cares. Patient is aware of her Surgery this Friday. Patient participated with therapy this am then slept. IV Vascular called to put a newPIV in. They are aware patient has a 1700 IVAB Patient's most recent vital signs are: Vital signs: BP: 114/59 Temp: 98 HR: 76 RR: 20 SpO2: 97 % Patient does not have new respiratory symptoms. Patient does not have new sore throat. Patient does not have a fever greater than 99.5. Goal Outcome Evaluation: Plan of Care - Marycarmen Cross, PT - 08/13/2021 10:59 AM CDT [facility] PT: Recert Date: 08/22/2021 Discharge Plan: Home to [place], [place] in house with 4 ILANA with dependent children (14,8,4). Precautions: WBAT on R LE for short distances , Falls, per provider's (Rogelio Treadwell MD) note from 07/31/21 ortho appt: The patient is allowed to proceed with weightbearing as tolerated for short distances. Otherwise, she will have to remain nonweightbearing. Current Status: Bed Mobility: IND Transfer: Davina in room with knee scooter during the day. Gait: 275 ft with knee scooter, SBA. 08/08 pt progressing with amb with WW up to 60'x 2 pt cont to work on equal step and WB. Stairs: pt demo up and down 3x3 steps in PT gym with Herbert rails needing SBA to mod I. V.c for tech/ Balance: Able to remain with NWB on R for ~ 15 sec with SBA without support Assessment: focus on R ankle WB and ROM: step ups CGA, herbert UE support in // bars to 5 step x 10, walk in // bars x 3, Forced stance on 2 foam under L foot, Stand on two foams, stand on long blue foamto strengthen ankle and proprioception. Pt concerned how meds will be sent with her when she discharges for surgery. Pt verbalized concern about discharging home after upcoming surgery or if they would have to return to this facility. Discussed that it may be a decision the MD makes after surgery complete, but assured Pt that this will be discussed if team is given that information. Other Barriers to Discharge (DME, Family Training, etc): Will need knee scooter, potentially crutches for stair training. Plan of Care - Christina Maza RN - 08/13/2021 5:21 AM CDTSummary: CARE PLAN NOTE Goal Outcome Evaluation: Plan of Care Reviewed With: patient Overall Patient Progress: no change Pt has no c/o pain or discomfort this shift. R foot/ankle with dressing CDI. L FA PIV with IV Cefazolin??infused a little slower to preserve site. Loves vanilla pudding and ice cream- requested x several times this shift.WBAT. Independent to BSC- stafff empties.??Pt has no c/o SOB and no s/s of respiratory issue noted at RA. PRN atarax 25 mg given at midnight to help promote comfort and sleep - awaiting order for Melatonin per pt requests via E sticky note. Appear to be sleeping/resting between cares/ meds and Claimed slept well tonight after Atarax was given when assessed this am.. Will Continue with plan of care. Patient's most recent vital signs are: Vital signs: BP: 125/64 Temp: 97.9 HR: 83 RR: 16 SpO2: 98 % Patient does not have new respiratory symptoms. Patient does not have new sore throat. Patient does not have a fever greater than 99.5. Plan of Care - Van Corona SLP - 08/12/2021 4:38 PM CDT [facility] CAR ELECTRONICS INSTALLER: Discharge Plan: no ongoing CAR ELECTRONICS INSTALLER interventions Precautions: IV antibiotics Current Status: Communication: WNL expressive and receptive language Cognition: Mild cognitive impairment- memory, attention, executive function/visuospatial deficits. Swallow:Regular/thin; not formally assessed on TCU Assessment: Pt initially declined session due to anxiety from phone call from children earlier, withencouragement pt agreeabe to short session. Instructed pt in structured practice opportunity if mental imagery memory strategy with 5 word delayed recall. Pt demo'd immediate recall of 5/5 with two learning opportunities, after 5 minute delay with distractor task pt recalled 5/5 with no cues from CAR ELECTRONICS INSTALLER.Educated in use of mental imagery strategy in daily life with example of grocery shopping, forgetting to put an item on list. Other Barriers to Discharge (Family Training, etc): none noted at this time. Plan of Care - Nano Malone RN - 08/12/2021 4:27 PM CDT Goal Outcome Evaluation: Patient is alert and oriented x4. Transfers SBA. Continent of bowel and bladder, uses bedside commode. Last bowel movement was today per patient statement. IV on Left forearm infused IV antibiotic. New tubing placed in room at 5 pm. Right ankle dressing CDI, wound cares done on day shift. Rash to neck and chest, scheduled ointment applied. Regular diet, takes pills whole with thin liquids. Acetaminophen given for pain. Contact precautions maintained. Denies SOB, Chest pain, numbness and tingling. Able to make needs known, call light left within reach. Patient's most recent vital signs are: Vital signs: BP: 95/56 Temp: 96.2 HR: 65 RR: 20 SpO2: 93 % Patient does not have new respiratory symptoms. Patient does not have new sore throat. Patient does not have a fever greater than 99.5. Plan of Care - Vickie Erwin RN - 08/12/2021 1:56 PM CDT Pt is A&Ox4. She can transfer from w/c to bed with SBA. IV abx infused through PIV w/o problem. She requested tylenol this shift prior to therapies. She had a good appetite. Pt napped off and on during the shift. R ankle dressing was changed per orders. Bed linens were changed. Pt is continent of B&B using BSC. Patient's most recent vital signs are: Vital signs: BP: 123/78 Temp: 96.9 HR: 93 RR: 16 SpO2: 98 % Patient does not have new respiratory symptoms. Patient does not have new sore throat. Patient does not have a fever greater than 99.5. Plan of Care - Marlena Castellanos, COLLECTION SYSTEMS CONSULTANT - 08/12/2021 12:27 PM CDT [facility] PT: Recert Date: 08/22/2021 Discharge Plan: Home to [place], [place] in house with 4 ILANA with dependent children (14,8,4). Precautions: WBAT on R LE for short distances , Falls, per provider's (Rogelio Treadwell MD) note from 07/31/21 ortho appt: The patient is allowed to proceed with weightbearing as tolerated for short distances. Otherwise, she will have to remain nonweightbearing. Current Status: Bed Mobility: IND Transfer: Davina in room with knee scooter during the day. Gait: 275 ft with knee scooter, SBA. 08/08 pt progressing with amb with WW up to 60'x 2 pt cont to work on equal step and WB. Stairs: pt demo up and down 3x3 steps in PT gym with Herbert rails needing SBA to mod I. V.c for tech/ Balance: Able to remain with NWB on R for ~ 15 sec with SBA without support Assessment: Focus on core and UE strengthening for increased ease with functional activities. Pt performed all activities seated at edge of w/c seat, feet on floor, w/o back support: seated chop w/2# WB for 2 bouts x 10 reps ea direction, ball toss for 2 bouts x 20 reps, ball bounce pass for 2 bouts while performing addiitonal cognitive challenge of naming animals then colors. Pt displayed some difficulty performing activity while dual tasking. Pt reported feeling fatigue in arms and core at end of session. Pt verbalized concern about discharging home after upcoming surgery or if they would have to return to this facility. Discussed that it may be a decision the MD makes after surgery complete, but assured Pt that this will be discussed if team is given that information. Other Barriers to Discharge (DME, Family Training, etc): Will need knee scooter, potentially crutches for stair training. Plan of Care - Christina Maza RN - 08/12/2021 5:08 AM CDTSummary: CARE PLAN NOTE Goal Outcome Evaluation: Plan of Care Reviewed With: patient Overall Patient Progress: no change Pt has no c/o pain or discomfort this shift. R foot/ankle with dressing CDI. L FA PIV with IV Cefazolin infused without issue. Loves vanilla pudding and ice cream- requested x several times this shift.WBAT. Independent to BSC- stafff empties. Pt has no c/o SOB and no s/s of respiratory issue noted at RA. Appear to be sleeping/resting between cares/ meds but claimed not able to sleep well tonight but not new per pt. Will offer PRN atarax to help with sleep. Continue with plan of care. Patient's most recent vital signs are: Vital signs: BP: 112/34 Temp: 98.4 HR: 93 RR: 16 SpO2: 98 % Patient does not have new respiratory symptoms. Patient does have new sore throat. Patient does not have a fever greater than 99.5. Plan of Care - Nano Malone RN - 08/11/2021 6:29 PM CDT Goal Outcome Evaluation: Patient is alert and oriented x4. Transfers SBA. Continent of bowel and bladder, uses bedside commode. Last bowel movement was on 6/24. IV on Left forearm infused IV antibiotic. New tubing placed in room at 4 pm. Right ankle dressing changed and wound cares done. Rash to neck and chest, scheduled oint ment applied. Regular diet, takes pills whole with thin liquids. Acetaminophen given for pain. Contact precautions maintained. Denies SOB, Chest pain, numbness and tingling. Able to make needs known, call light left within reach. Patient's most recent vital signs are: Vital signs: BP: 95/56 Temp: 96.2 HR: 65 RR: 20 SpO2: 93 % Patient does not have new respiratory symptoms. Patient does not have new sore throat. Patient does not have a fever greater than 99.5. Plan of Care - Vickie Erwin RN - 08/11/2021 2:53 PM CDT Pt is A&Ox4. She can transfer from w/c to bed with SBA. PIV leaked, RN Flyer removed and placed new IV. IV abx infused through PIV w/o problem. She requested tylenol this shift. She had a good appetite. Bed linens were changed. Pt is continent of B&B. Patient's most recent vital signs are: Vital signs: BP: 121/66 Temp: 98.4 HR: 78 RR: 16 SpO2: 97 % Patient does not have new respiratory symptoms. Patient does not have new sore throat. Patient does not have a fever greater than 99.5. Plan of Care - Christina Maza RN - 08/11/2021 5:18 AM CDTSummary: CARE PLAN NOTE Goal Outcome Evaluation: Plan of Care Reviewed With: patient Overall Patient Progress: no change Pt has no c/o pain or discomfort this shift. R foot/ankle with dressing CDI. L lower FA PIV patent -IV Cefazolin infused without issue. Loves vanilla pudding and ice cream- requested x 2. Independent to BSC- stafff empties. Pt has no c/o SOB and no s/s of respiratory issue noted at RA. Appear to be sleeping/resting between cares/ meds. Continue with plan of care. Patient's most recent vital signs are: Vital signs: BP: 111/57 Temp: 98.3 HR: 78 RR: 18 SpO2: 98 % Patient does not have new respiratory symptoms. Patient does not have new sore throat. Patient does not have a fever greater than 99.5. Plan of Care - Nano Malone RN - 08/10/2021 6:11 PM CDT Goal Outcome Evaluation: Patient is alert and oriented x4. Transfers SBA. Continent of bowel and bladder, uses bedside commode. Left wrist PIV started leaking after IV started. Nurse flyer inserted new IV on Left forearm. Right ankle dressing changed on day shift, CDI. Regular diet, takes pills whole with thin liquids. Acetaminophen given for pain. Able to make needs known, call light left within reach. Patient's most recent vital signs are: Vital signs: BP: 95/56 Temp: 96.2 HR: 65 RR: 20 SpO2: 93 % Patient does not have new respiratory symptoms. Patient does not have new sore throat. Patient does not have a fever greater than 99.5. 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 Swallow:Regular/thin; not formally assessed on TCU Assessment: Instructed pt in moderate difficulty deductive reasoning task, with extra time and mild verbal cues pt completed task with 100% accuracy. Pt reported not understanding of completing deductive reasoning puzzle, pt educated in deductive reasoning in everyday activities, examples provided to increase pt insight into rapid reasoning completed frequently throughout the day. Other Barriers to Discharge (Family Training, etc): none noted at this time. Plan of Care - Marlena Castellanos PTA - 08/10/2021 3:54 PM CDT [facility] PT: Recert Date: 08/22/2021 Discharge Plan: Home to [place], [place] in house with 4 ILANA with dependent children (14,8,4). Precautions: WBAT on R LE for short distances , Falls, per provider's (Rogelio Treadwell MD) note from 07/31/21 ortho appt: The patient is allowed to proceed with weightbearing as tolerated for short distances. Otherwise, she will have to remain nonweightbearing. Current Status: Bed Mobility: IND Transfer: Davina in room with knee scooter during the day. Gait: 275 ft with knee scooter, SBA. 08/08 pt progressing with amb with WW up to 60'x 2 pt cont to work on equal step and WB. Stairs: pt demo up and down 3x3 steps in PT gym with Herbert rails needing SBA to mod I. V.c for tech/ Balance: Able to remain with NWB on R for ~ 15 sec with SBA without support Assessment: Completed early 6th visit. Focus on LE strengthening and improve ROM in //. Step up w/2step for 2 bouts x 8 reps. Step ups w/4 step for 2 bouts x 8 reps, step ups w/6 step for 2 bouts x8 reps. Step up w/LLE and down w/RLE to mimize WB to R ankle. Pt reported that feels good. B seated ankle AROM w/skateboard for 2 bouts x 8 reps. Other Barriers to Discharge (DME, Family Training, etc): Will need knee scooter, potentially crutches for stair training. Plan of Care - Vickie Erwin RN - 08/10/2021 2:45 PM CDT Pt is A&Ox4. She can transfer from w/c to bed with SBA. IV abx infused through PIV w/o problem. She requested tylenol this shift. R ankle dressing was changed per orders. Pt agreed to asymptomatic Covid test. She had a good appetite. She participated in therapies. Pt reported B groin rash and R armpit rash. Note left for provider. Patient's most recent vital signs are: Vital signs: BP: 127/83 Temp: 98.4 HR: 83 RR: 16 SpO2: 97 % Patient does not have new respiratory symptoms. Patient does not have new sore throat. Patient does not have a fever greater than 99.5. Plan of Care - Steve Glaeano RN - 08/10/2021 4:13 AM CDT Goal Outcome Evaluation: Pt is alert and oriented x 4. Able to make needs known to staffs. No acute issue noted this shift. Denied Chest pain, SOB, Nausea and vomiting. Independent in room using a scooter. IV antibiotics infused with no issue. PIV intact with dressing clean. No complain of discomfort. Will continue with POC. Patient's most recent vital signs are: Vital signs: BP: 123/64 Temp: 97.9 HR: 79 RR: 18 SpO2: 98 % Patient does not have new respiratory symptoms. Patient does not have new sore throat. Patient does not have a fever greater than 99.5. Plan of Care - Dc Nichols RN - 08/09/2021 10:51 PM CDT Goal Outcome Evaluation: Patient is alert and oriented x4. Able to make needs known. Continent of bowel and bladder. Uses a bedside commode. Independent in room. Afebrile, and denied SOB, dizziness, and chest pain. Left hand PIV is patent and dressing is CDI. Will continue with POC. Patient's most recent vital signs are: Vital signs: BP: 123/64 Temp: 97.9 HR: 79 RR: 18 SpO2: 98 % Patient does not have new respiratory symptoms. Patient does not have new sore throat. Patient does not have a fever greater than 99.5. Plan of Care - Hui Hicks RN - 08/09/2021 3:06 PM CDT Alert and oriented times four. IV Cefazolin ran successfully. Took pills whole. Ate continuously throughout shift. Independent in room. Continent of bowel and bladder. Continue with plan of care. Patient's most recent vital signs are: Vital signs: BP: 114/66 Temp: 95.5 HR: 91 RR: 18 SpO2: 96 % Patient does not have new respiratory symptoms. Patient does not have new sore throat. Patient does not have a fever greater than 99.5. Plan of Care - Gucci Ko SLP - 08/09/2021 9:56 AM CDT [facility] [employer]: Discharge Plan: no ongoing [employer] INST[employer]ER interventions Precautions: IV antibiotics Current Status: Communication: WNL expressive and receptive language Cognition: Mild cognitive impairment- memory, attention, executive function/visuospatial deficits. Swallow:Regular/thin; not formally assessed on TCU Assessment: Patient engaged in deductive reasoning task. Was able to complete at moderat level of difficulty this date with 100% accuracy when reviewing appropriate strategies prior to starting the task. Patient was observed doing a self-transfer to bed and not appropriately locking brakes and also appearing to put at least some weight on her right leg. Other Barriers to Discharge (Family Training, etc): none noted at this time. Plan of Care - Mando Jensen PTA - 08/09/2021 9:15 AM CDT [facility] PT: Recert Date: 08/22/2021 Discharge Plan: Home to [place], [place] in house with 4 ILANA with dependent children (14,8,4). Precautions: WBAT on R LE for short distances , Falls, per provider's (Rogelio Treadwell MD) note from 07/31/21 ortho appt: The patient is allowed to proceed with weightbearing as tolerated for short distances. Otherwise, she will have to remain nonweightbearing. Current Status: Bed Mobility: IND Transfer: Davina in room with knee scooter during the day. Gait: 275 ft with knee scooter, SBA. 08/08 pt progressing with amb with WW up to 60'x 2 pt cont to work on equal step and WB. Stairs: pt demo up and down 3x3 steps in PT gym with Herbert rails needing SBA to mod I. V.c for tech/ Balance: Able to remain with NWB on R for ~ 15 sec with SBA without support Assessment: Pt with slightly increased pain in ankle, not feeling well today. Focus of session on ROM and isometrics for ankle, hip strengthening. 08/07- pt cont to progress with functional amb with WW working on WBAT and ROM to R ankle. Plan to continue to address stairs as this is barrier to discharge. 08/08- Pt cont to work well with PT limited by weakness, fatigue and lack of ROM on R ankle. 08/09- PT progress functional IND/ mod I with bed mob. Transfers, and amb with WW. Pt able to demo 3x3 steps with Herbert rail today with SBA to mod I. Car transfer with mod I. Pt checking on WW at home from mother, check on knee scoot for home. Other Barriers to Discharge (DME, Family Training, etc): Will need knee scooter, potentially crutches for stair training. Care Plan - Jennifer Vaca RN - 08/09/2021 2:06 AM CDT Patient is A x Ox4. Had abx at 0100. Denies SOB and chest pain. Able to make needs known. Independent with repositioning. Communicates her needs. Call light is within reach and answered in person. Willcontinue POC Patient's most recent vital signs are: Vital signs: BP: 99/46 Temp: 98.3 HR: 80 RR: 18 SpO2: 97 % Patient does not have new respiratory symptoms. Patient does not have new sore throat. Patient does not have a fever greater than 99.5. Plan of Care - Dc Nichols RN - 08/08/2021 10:28 PM CDT Goal Outcome Evaluation: Patient is alert and oriented x4. Able to make needs known. Afebrile, denied SOB and chest pain. Patient is continent of both bowel and bladder. Requires SBA with cares and independent of bed mobility.Dressing to right lateral ankle is CDI. New PIV to left hand is patent and CDI. Call-light within reach at all times. Will continue with POC. Patient's most recent vital signs are: Vital signs: BP: 99/46 Temp: 98.3 HR: 80 RR: 18 SpO2: 97 % Patient does not have new respiratory symptoms. Patient does not have new sore throat. Patient does not have a fever greater than 99.5. Plan of Care - Mando Jensen PTA - 08/08/2021 4:34 PM CDT [facility] PT: Recert Date: 08/22/2021 Discharge Plan: Home to [place], [place] in house with 4 ILANA with dependent children (14,8,4). Precautions: WBAT on R LE for short distances , Falls, per provider's (Rogelio Treadwell MD) note from 07/31/21 ortho appt: The patient is allowed to proceed with weightbearing as tolerated for short distances. Otherwise, she will have to remain nonweightbearing. Current Status: Bed Mobility: IND Transfer: Davina in room with knee scooter during the day. Gait: 275 ft with knee scooter, SBA. 08/08 pt progressing with amb with WW up to 60'x 2 pt cont to work on equal step and WB. Stairs: stairs in PT gym 2 HR x 6 cga Balance: Able to remain with NWB on R for ~ 15 sec with SBA without support Assessment: Pt with slightly increased pain in ankle, not feeling well today. Focus of session on ROM and isometrics for ankle, hip strengthening. 08/07- pt cont to progress with functional amb with WW working on WBAT and ROM to R ankle. Plan to continue to address stairs as this is barrier to discharge. 08/08- Pt cont to work well with PT limited by weakness, fatigue and lack of ROM on R ankle. Other Barriers to Discharge (DME, Family Training, etc): Will need knee scooter, potentially crutches for stair training. Plan of Care - Gucci Ko [employer] INST[employer]ER - 08/08/2021 4:04 PM CDT [facility] [employer] IN[employer]ER: Discharge Plan: Likely ongoing [employer] INST[employer]ER Precautions: IV antibiotics Current Status: Communication: WNL expressive and receptive language Cognition: Mild cognitive impairment- memory, attention, executive function/visuospatial deficits. Swallow:Regular/thin; not formally assessed on TCU Assessment: Original plan was to discharge patient from speech therapy this date after further discussion decided to continue with therapy for a few more visits to continue maximizing her cognitive function. Patient this date requested clinician look at her lease agreement asking some appropriate questions regarding the lease agreement. Patient was able to consistently recognize and locate the correct answers when queried about important components of the lease. Other Barriers to Discharge (Family Training, etc): none noted at this time. Plan of Care - Hui Hicks RN - 08/08/2021 2:59 PM CDT Alert and oriented times three. Groggy and sleepy. Left PICC removed (patient had almost pulled completely out). New PIV anterior left hand placed and patent. IV Cefazolin ran completely. Independent in room. Ate 100% of breakfast and lunch. Continent of bowel and bladder. WOC took pictures of ankle wound and changed dressing. Continue with plan of care. Patient's most recent vital signs are: Vital signs: BP: 109/56 Temp: 97.6 HR: 73 RR: 16 SpO2: 96 % Patient does not have new respiratory symptoms. Patient does not have new sore throat. Patient does not have a fever greater than 99.5. Plan of Care - Liza Lloyd RN - 08/08/2021 6:27 AM CDT Goal Outcome Evaluation: No acute issues overnight. Requested and rec'd Tyl.975mg po @ 0100 and Atarax/Melatonin @ 0130 for c/o R ankle pain and sleep. Indep.in room w/knee scooter and to BSC. Continues IV abx via SL valved picc LUE. Patient's most recent vital signs are: Vital signs: BP: 131/80 Temp: 97.9 HR: 73 RR: 16 SpO2: 98 % Patient does not have new respiratory symptoms. Patient does not have new sore throat. Patient does not have a fever greater than 99.5. Plan of Care - Maryam Rose RN - 08/07/2021 10:46 PM CDT Goal Outcome Evaluation: Pt was alert and oriented x 4. Up to bedside commode independently. Rashes on neck, chest and on the LUE were improving.Did not complain of tooth ache during the shift.Dressing on the R calf was done.Sleep in between cares. Patient's most recent vital signs are: Vital signs: BP: 131/80 Temp: 97.9 HR: 73 RR: 16 SpO2: 98 % Patient does not have new respiratory symptoms. Patient does not have new sore throat. Patient does not have a fever greater than 99.5. Plan of Care - Mando Jensen PTA - 08/07/2021 4:04 PM CDT [facility] PT: Recert Date: 08/22/2021 Discharge Plan: Home to [place], [place] in house with 4 ILANA with dependent children (14,8,4). Precautions: WBAT on R LE for short distances , Falls, per provider's (Rogelio Treadwell MD) note from 07/31/21 ortho appt: The patient is allowed to proceed with weightbearing as tolerated for short distances. Otherwise, she will have to remain nonweightbearing. Current Status: Bed Mobility: IND Transfer: Davina in room with knee scooter during the day. Gait: 275 ft with knee scooter, SBA Stairs: stairs in PT gym 2 HR x 6 cga Balance: Able to remain with NWB on R for ~ 15 sec with SBA without support Assessment: Pt with slightly increased pain in ankle, not feeling well today. Focus of session on ROM and isometrics for ankle, hip strengthening. 08/07- pt cont to progress with functional amb with WW working on WBAT and ROM to R ankle. Plan to continue to address stairs as this is barrier to discharge. Other Barriers to Discharge (DME, Family Training, etc): Will need knee scooter, potentially crutches for stair training. Plan of Care - Amanda Swanson RN - 08/07/2021 1:13 PM CDT Pt is AxO, denies CP and SOB, VSS. Pt sleeping for most of the shift. IV antibiotic ran with now issues through LPICC, which is CDI. Rash near LPICC has improved, pt still has rash to chest and under chin. PRN tylenol given with AM meds due to tooth pain. R ankle dressing is CDI. Patient's most recent vital signs are: Vital signs: BP: 112/69 Temp: 98.5 HR: 87 RR: 18 SpO2: 97 % Patient does not have new respiratory symptoms. Patient does not have new sore throat. Patient does not have a fever greater than 99.5. Plan of Care - Steve Galeano RN - 08/07/2021 6:57 AM CDT Goal Outcome Evaluation: Pt is alert and oriented x 4. Able to make needs known to others. Pt denied SOB, pain, CP. Independent in room using a scooter. No BM recorded this shift. Antibiotics infused with no issues. Requestedfor pudding and ice cream x 2 this shift. Wound dressing intact clean and dry. Pt PIC site red and itchy per Pt. No complain of discomfort. Will continue with POC. Patient's most recent vital signs are: Vital signs: BP: 113/69 Temp: 98 HR: 79 RR: 18 SpO2: 97 % Patient does not have new respiratory symptoms. Patient does not have new sore throat. Patient does not have a fever greater than 99.5. ? Plan of Care - Tyson Dockery RN - 08/06/2021 10:35 PM CDT The patient is alert and oriented x 3. VSS. Able to make needs known. Medicated with Tylenol X 1 forright ankle pain control. Continent of bowel and bladder. BM x 1. Appetite is good. Still finishing up dinner. In bed all shift and declined shower this shift. The PICC on the left upper arm is intact.Clobetasol ointment to erythematous plaque on the left lateral side of the PICC line insertion site.Wound care and dressing change to the right ankle wound. Continue to monitor for comfort. Patient's most recent vital signs are: Vital signs: BP: 113/69 Temp: 98 HR: 79 RR: 18 SpO2: 97 % Patient does not have new respiratory symptoms. Patient does not have new sore throat. Patient does not have a fever greater than 99.5. Plan of Care - Marycarmen Cross PT - 08/06/2021 1:16 PM CDT [facility] PT: Recert Date: 08/22/2021 Discharge Plan: Home to [place], [place] in house with 4 ILANA with dependent children (14,8,4). Precautions: WBAT on R LE for short distances , Falls, per provider's (Rogelio Treadwell MD) note from 07/31/21 ortho appt: The patient is allowed to proceed with weightbearing as tolerated for short distances. Otherwise, she will have to remain nonweightbearing. Current Status: Bed Mobility: IND Transfer: Davina in room with knee scooter during the day. Gait: 275 ft with knee scooter, SBA Stairs: stairs in PT gym 2 HR x 6 cga Balance: Able to remain with NWB on R for ~ 15 sec with SBA without support Assessment: Pt with slightly increased pain in ankle, not feeling well today. Focus of session on ROM and isometrics for ankle, hip strengthening. Plan to continue to address stairs as this is barrier to discharge. Other Barriers to Discharge (DME, Family Training, etc): Will need knee scooter, potentially crutches for stair training. Plan of Care - Amanda Swanson RN - 08/06/2021 11:09 AM CDT Pt is AxO, denies CP and SOB, VSS. IV antibiotic ran through LPICC with no issues. LPICC is CDI and pt stated she isn't itching as much around the dressing. Pt c/o tooth pain, prn tylenol given. Pt stated that it is not new for her. Patient's most recent vital signs are: Vital signs: BP: 128/71 Temp: 97.1 HR: 72 RR: 16 SpO2: 96 % Patient does not have new respiratory symptoms. Patient does not have new sore throat. Patient does not have a fever greater than 99.5. Plan of Care - Steve Galeano RN - 08/06/2021 6:55 AM CDT Goal Outcome Evaluation: Pt is alert and oriented x 4. Able to make needs known to others. Pt denied SOB, pain, CP. Independent in room using a scooter. Extra large BM recorded this shift. Antibiotics infused with no issues. Requested for pudding and ice cream x 2 this shift. Wound dressing intact clean and dry. Pt PIC site red and itchy per Pt. No complain of discomfort. Will continue with POC. Patient's most recent vital signs are: Vital signs: BP: 128/71 Temp: 97.1 HR: 72 RR: 16 SpO2: 96 % Patient does not have new respiratory symptoms. Patient does not have new sore throat. Patient does not have a fever greater than 99.5. ?? Plan of Care - Maryam Rose RN - 08/05/2021 10:50 PM CDT Goal Outcome Evaluation: Pt is alert and oriented x 4. Denies chest pain and respiratory distress. Pt has been complaining of itchiness in some part of her body. Redness under breast noted to be red and itchy. Applied Clobetasol ointment and PRN benadryl given.PICC line was intact and was able to infuse antibiotic with out any issues. Always requesting for more pudding. Ambulated to bedside commode. Had a large BM and voidsspontaneously with yellow urine output. Patient's most recent vital signs are: Vital signs: BP: 128/71 Temp: 97.1 HR: 72 RR: 16 SpO2: 96 % Patient does not have new respiratory symptoms. Patient does not have new sore throat. Patient does not have a fever greater than 99.5. Plan of Care - Christopher More, PT - 08/05/2021 5:46 PM CDT [facility] PT: Recert Date: 08/22/2021 Discharge Plan: Home to [place], [place] in house with 4 ILANA with dependent children (14,8,4). Precautions: WBAT on R LE for short distances , Falls, per provider's (Rogelio Treadwell MD) note from 07/31/21 ortho appt: The patient is allowed to proceed with weightbearing as tolerated for short distances. Otherwise, she will have to remain nonweightbearing. Current Status: Bed Mobility: IND Transfer: Davina in room with knee scooter during the day. Gait: 275 ft with knee scooter, SBA Stairs: stairs in PT gym 2 HR x 6 cga Balance: Able to remain with NWB on R for ~ 15 sec with SBA without support Assessment: PT: per provider's (Rogelio Treadwell MD) note from yesterday's ortho appt: The patient is allowed to proceed with weightbearing as tolerated for short distances. Otherwise, she willhave to remain nonweightbearing. Pt able to WBAT RLE with amb 15-20 feet with FWW in gym and room. Pt also able to hop up stairs in gym cga x 6 stairs to fatigue and standing strengthening ex. Pt continues to be safe for Mod I in roomwith knee scooter during the day. Teamed with rehab MD and chart reviewed for new restrictions; Pt denies increased symptoms with activity change, will continue to progress and monitor. Plan to continue to address stairs as this is barrier to discharge. Other Barriers to Discharge (DME, Family Training, etc): Will need knee scooter, potentially crutches for stair training. Plan of Care - Amanda Swanson RN - 08/05/2021 11:37 AM CDT Pt is AxO but sleepy, denies CP and SOB, VSS. Using beside commode, MOD I in her room. LPICC dressing was changed last PM shift. IV antibiotic ran with no issues. R ankle dressing is CDI. PRN tylenol given x1. Pt has rash under/near her PICC dressing, sticky written. Patient's most recent vital signs are: Vital signs: BP: 101/57 Temp: 98.2 HR: 80 RR: 16 SpO2: 97 % Patient does not have new respiratory symptoms. Patient does not have new sore throat. Patient does not have a fever greater than 99.5. Plan of Care - Maryam Rose RN - 08/04/2021 7:55 PM CDT Goal Outcome Evaluation: Pt is alert and oriented x 4, Denies chest pain and SOB. Pt had a shower today. PICC line dressing coming off new dressing done, saline flushed, cap changed and with good blood return. Pt dressing on Rcalf was changed. Scant amount of serous drainage noted.Covered with Mepilex and wrap with roll Kerlix. Patient's most recent vital signs are: Vital signs: BP: 111/66 Temp: 98.4 HR: 82 RR: 20 SpO2: 97 % Patient does not have new respiratory symptoms. Patient does not have new sore throat. Patient does not have a fever greater than 99.5. 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 Swallow:Regular/thin; not formally assessed on TCU Assessment: Patient wanting assistance looking at her new lease and ensuring the accuracy of components. Patient was able to read through the release and answer questions appropriately. Ultimately ableto complete the task with minimal input. If clinician was not present, patient still would have had adequate amount of accuracy in the task. Other Barriers to Discharge (Family Training, etc): none noted at this time. Plan of Care - Amanda Swanson RN - 08/04/2021 9:57 AM CDT Pt is AxO but sleepy this shift, denies CP and SOB, VSS. Antibiotic ran through LPICC with no issuesthis shift. PICC dressing was reinforced. New nicotine patch placed this AM to pt's right shoulder. Pt is Mod I in her room with her scooter. R ankle dressing is CDI. No c/o pain or PRNs this shift. Patient's most recent vital signs are: Vital signs: BP: 126/76 Temp: 97.8 HR: 79 RR: 18 SpO2: 98 % Patient does not have new respiratory symptoms. Patient does not have new sore throat. Patient does not have a fever greater than 99.5. Plan of Care - Steve Galeano RN - 08/04/2021 5:41 AM CDT Goal Outcome Evaluation: Pt is alert and oriented x 4. Able to make needs known through others. Pt denied SOB, pain, CP. Independent in room using a scooter. No BM recorded this shift. Antibiotics infused this shift with no issues. Requested for pudding and gram crackers x 1 this shift. Wound dressing intact clean and dry. Pt keeps touching IV site with bare hands. Pt educated on infection control. No complain of discomfort. Will continue with POC. Patient's most recent vital signs are: Vital signs: BP: 107/89 Temp: 99 HR: 75 RR: 16 SpO2: 96 % Patient does not have new respiratory symptoms. Patient does not have new sore throat. Patient does not have a fever greater than 99.5. Plan of Care - Perico Lou RN - 08/03/2021 10:39 PM CDT Sleeping on And off. Able to communicate needs. Afebrile, VSS on RA. Uses knee scooter for mobility.PICC line intact, IV [address] IV ABXs infused. Pain comfortably manageable with tylenol & atrax. Denies any cough, chest pain, SOB, dificulty breathing, lightheadedness or dizziness.No Nausea or vomiting. Denies any chills of fever. Call light within reach. Patient's most recent vital signs are: Vital signs: BP: 107/89 Temp: 99 HR: 75 RR: 16 SpO2: 96 % Patient does not have new respiratory symptoms. Patient does not have new sore throat. Patient does not have a fever greater than 99.5. 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 Swallow:Regular/thin; not formally assessed on TCU Assessment: Pt participated in deductive reasoning task. Introduced to strategies to assist in organization and IND. Pt with good sustained attention but difficulty alternating attention between different material. Required mod cues to breakdown information to determine correct order and reason through less concrete material. Pt expressed benefit of strategies learned and usefulness to apply to dailysituations and complete task more effectively. Other Barriers to Discharge (Family Training, etc): none noted at this time. Care Plan - So Rojas RN - 08/03/2021 11:36 AM CDT Sleeps off and on during the day. Participates in therapies. Uses knee scooter for mobility. Independent in using commode. Continent of bowel and bladder. Eats independently with good appetite. Requests pudding often. Apartment lease papers arrived via fax and I gave them to the patient. Tylenol and atarax for pain with relief. Patient's most recent vital signs are: Vital signs: BP: 106/69 Temp: 97.1 HR: 78 RR: 16 SpO2: 97 % Patient does not have new respiratory symptoms. Patient does not have new sore throat. Patient does not have a fever greater than 99.5. Plan of Care - Roxy Vicente, PT - 08/03/2021 11:27 AM CDT [facility] PT: Recert Date: 08/22/2021 Discharge Plan: Home to [place], [place] in house with 4 ILANA with dependent children (14,8,4). Precautions: WBAT on R LE for short distances , Falls, per provider's (Rogelio Treadwell MD) note from 07/31/21 ortho appt: The patient is allowed to proceed with weightbearing as tolerated for short distances. Otherwise, she will have to remain nonweightbearing. Current Status: Bed Mobility: IND Transfer: Davina in room with knee scooter during the day. Gait: 275 ft with knee scooter, SBA Stairs: stairs in PT gym 2 HR x 6 cga Balance: Able to remain with NWB on R for ~ 15 sec with SBA without support Assessment: PT: per provider's (Rogelio Treadwell MD) note from yesterday's ortho appt: The patient is allowed to proceed with weightbearing as tolerated for short distances. Otherwise, she willhave to remain nonweightbearing. Pt able to participate with gentle stretching R ankle, standing in bars with Partial weightbearing RLE as tolerated with amb one length of bars at a time. Pt also able to hop up stairs in gym cga x 6 stairs to fatigue and standing strengthening ex. Pt is OK for Mod I in room with knee scooter during the day. Plan to continue to address stairs as this is barrier to discharge. Other Barriers to Discharge (DME, Family Training, etc): Will need knee scooter, potentially crutches for stair training. Care Plan - Smita Hoffman RN - 08/03/2021 9:26 AM CDT Met with pt to discuss COVID vaccine status. Kiln Packer offered and provided education re COVID vaccine and availability on unit. Pt requesting for a few days to think about it, declining the vaccine for now. Plan of Care - Evelyn Ascencio RN - 08/03/2021 3:54 AM CDT Pt alert and oriented. Denies pain. No s/s of SOB and chest pain noted. Assist of 1 with ADLs. Continent bowel and bladder. Call light within reach.Redness noted to the picc skin area. Pt c/o itching and scratches. Sticky note left. Bed alarm on for safety. Contact precaution maintained. Will continuePOC. Patient's most recent vital signs are: Vital signs: BP: 122/68 Temp: 98.5 HR: 84 RR: 16 SpO2: 97 % Patient does not have new respiratory symptoms. Patient does not have new sore throat. Patient does not have a fever greater than 99.5. Plan of Care - Maryam Rose RN - 08/02/2021 9:30 PM CDT Goal Outcome Evaluation: Pt is alert and oriented x 4.Denies chest pain and SOB. Pt L upper arm near to PICC is red and moist. Cream applied by patient. PICC line dressing covered by soft TG to prevent pt from pulling it. Wound on the R calf dressed per MAR and covered by rolled Kerlix per pt request. Had 1x PRN of Tylenol for pain on her R calf. Uses scooter and independent in the room. Patient's most recent vital signs are: Vital signs: BP: 122/68 Temp: 98.5 HR: 84 RR: 16 SpO2: 97 % Patient does not have new respiratory symptoms. Patient does not have new sore throat. Patient does not have a fever greater than 99.5. Care Plan - So Rojas RN - 08/02/2021 11:16 AM CDT Sleepy. Will not be going on pass today, due to safety issues. PICC dressing coming off, rash and bleeding under dressing. PICC dressing changed using IV 3000 dressing. (used for skin irritation) Continues on IV antibiotics. Someone from [employer] here to explain surgical procedure that will be done 08/15/21 and had patient sign consent form. Patient is waiting for a fax regarding her lease that needs to be signed and faxed back. Patient's most recent vital signs are: Vital signs: BP: 101/64 Temp: 98 HR: 77 RR: 18 SpO2: 96 % Patient does not have new respiratory symptoms. Patient does not have new sore throat. Patient does not have a fever greater than 99.5. Plan of Care - Liza Lloyd RN - 08/02/2021 4:20 AM CDT Goal Outcome Evaluation: No acute issues overnight. Sleeping off and on. Up to BSC indep.- continent bladder. Maintains NWB RLE - per Ortho note 07/31: pt.can be WBAT for short distances. Continues IV abx via SL valved picc RUE. Has no c/o's pain, discomfort, CP and SOB. Likes pudding and requests often. Scheduled for surgery 08/15. Patient's most recent vital signs are: Vital signs: BP: 119/71 Temp: 98.7 HR: 68 RR: 18 SpO2: 97 % Patient does not have new respiratory symptoms. Patient does not have new sore throat. Patient does not have a fever greater than 99.5. Plan of Care - Ramonita Kent RN - 08/01/2021 7:24 PM CDT Patient is alert and oriented x4, able to make needs known. Denies N/V, denies N/T. VSS, on RA stable. Denies SOB, denies distress, clear LS, denies CP. Reporters pain to R ankle. Pain is managed with prn tylenol and scheduled meds this shift. R leg No weightbearing. Dressing is CDI. Pt uses scooter and is independent in room. Regular diet. Good appetite noted. PICC to L arm with good blood return. SL b/n antibiotics. Please refer to SW note regarding pt wanting to go home tomorrow. No other care concern. Continue with POC. Plan of Care - Gucci Ko, CAR ELECTRONICS INSTALLER - 08/01/2021 4:52 PM CDT [facility] CAR ELECTRONICS INSTALLER: Discharge Plan: Likely ongoing CAR ELECT[employer] INSTALLER Precautions: IV antibiotics Current Status: Communication: WNL expressive and receptive language Cognition: Mild cognitive impairment- memory, attention, executive function/visuospatial deficits. Swallow:Regular/thin; not formally assessed on TCU Assessment: CAR ELECTRONICS INSTALLER: Patient engaged in deductive reasoning task. Focus this date on strategies to recognize and correct errors. Patient this date was able to recognize errors but unable to repair without significant assistance. Discussed plan with patient to extend CAR ELECTRONICS INSTALLER interventions into early next week pending progress and discharge plan. Other Barriers to Discharge (Family Training, etc): none noted at this time. Plan of Care - Marycarmen Cross, PT - 08/01/2021 4:16 PM CDT [facility] PT: Recert Date: 08/22/2021 Discharge Plan: Home to [place], [place] in house with 4 ILANA with dependent children (14,8,4). Precautions: NWB on R LE, Falls, per provider's (Rogelio Treadwell MD) note from 07/31/21 orthoappt: The patient is allowed to proceed with weightbearing as tolerated for short distances. Otherwise, she will have to remain nonweightbearing. Current Status: Bed Mobility: IND Transfer: supervision with knee scooter Gait: 275 ft with knee scooter, SBA Stairs: hop up w/2 step then progressed to 4 step in // to initiate pre-stair activitity Balance: Able to remain with NWB on R for ~ 15 sec with SBA without support Assessment: PT: per provider's (Rogelio Treadwell MD) note from yesterday's ortho appt: The patient is allowed to proceed with weightbearing as tolerated for short distances. Otherwise, she willhave to remain nonweightbearing. Goal of session to address LE strength for stairs and to initiate WBAT. In // bars: L LE single leg squat x 8, weight shifting with Herbert LE support all directions, staggered stance weight shift. mini squat with R LE on 2 foams and 2 inch step x 8. Hop up to 2 step with herbert UE support and NWB on R Plan to continue to address stairs as this is barrier to discharge. Other Barriers to Discharge (DME, Family Training, etc): Will need knee scooter, potentially crutches for stair training. Plan of Care - Mariam Richter OT - 08/01/2021 4:11 PM CDT Occupational Therapy Discharge Summary Reason for therapy discharge: Goals met for this setting Progress towards therapy goal(s). See goals on Care Plan in Epic electronic health record for goal details. Goals met Therapy recommendation(s): Pt met goals for this setting including basic adls, basic mobility and simple kitchen mobility/1 item food prep while following NWB RLE precautions. Pt remains in TCU for Ivs and wound care. Recommend home OT at discharge when pt leaves TCU to maximize safety and indep in home setting w/ adls/Iadls/mobility and to asssess needed AE . Plan of Care - Leydi Alarcon RN - 08/01/2021 3:19 PM CDT Care Coordination: Patient's mother called underwriter mortgage loan to communicate concerns she had about patient leaving the facility tomorrow for a pass to go home to sign a lease. She stated that patient has alcoholism and she is concerned she is leaving to drink. She states that patient has participated in inpatient treatment multiple times and has relapsed after every treatment. She states that patient has a social media intern assigned to her in the community and did have a counselor. She states that patient was actively drinking priorto hospitalization. Patient's mother has been taking care of her children. Her mother states she haslost her own job trying to take care of the children and would like patient to have a sobriety plan for when she discharges home. Kiln Packer did alert MD on TCU, social work, and DON. Leydi Alarcon RN, BSN, CRRN Patient Sports Medicine Physician Acute Rehabilitation Unit/Transitional Care Unit PH: [phone] Pager: [phone] Care Plan - So Rojas RN - 08/01/2021 3:00 PM CDT Alert and correctly oriented and verbalizes her needs. Requesting oxycodone-this has been discontinued. I discussed this with Dr. Howell and he said she is no longer to receive oxycodone. She is receiving buprenorphine, robaxin, and has tylenol prn ordered. She is also requesting a pass for tomorrow to go home and sign a lease and do some other paperwork. wrote order for a pass. There was some discussion in rounds today whether patient can get into her house and if this will be safe. MARCEL and Mirna look into this. Patient's most recent vital signs are: Vital signs: BP: 105/60 Temp: 96.7 HR: 79 RR: 18 SpO2: 98 % Patient does not have new respiratory symptoms. Patient does not have new sore throat. Patient does not have a fever greater than 99.5. Plan of Care - Shani Joel OTA - 08/01/2021 10:22 AM CDT [facility] OT: Discharge Plan: home w/ mom to support PRN, Recert: 08/22 Precautions: NWB RLE, falls, mild cog deficits , IV antibiotics, wound vac Current Status: ADLs: ?? Mobility: sba-modified indep w/ knee scooter when scooter close and setup, uses trial and error to problem solve approach for positioning for ease of access and safety ?? Grooming: sba- modified indep ?? Dressing: sba to modified indep ub and LB drg ?? Bathing: set up full body sponge bath w/ assist to manage wound vac, SBA ext tub bench transfer ?? Toileting: commode transfers and clothing management/ pericares w/ modified indep it items accessible. IADLs: indep COLLECTION SYSTEMS CONSULTANT per pt, demo simple kitchen mobility and one item food prep w/ sba to mod Indep w/ knee scooter and no iv's attached at time Vision/Cognition: glasses, demo impaired memory,reasoning skills and judgement, DX acute encephalopathy w/ HX opioid d/o and ETOH use disorder, assess/address cog PRN, demo iimpaired planning skills, prob solves by trial and error Assessment: Indep day with full shower. Pt. Demonstrates Mod indep with toilet transfer/hygiene to/from commode, Full shower following set up. Pt. Is not 100% compliant with NWB during shower task alternating sit<>stand although aware of precautions and importance. Pt. Completed all dressing Modindep. Demonstrates good safety with use of knee milk route supervisor with ambulation. Other Barriers to Discharge (DME, Family Training, etc): stairs to enter -will provide ext tub bench prior to discharge Plan of Care - Steve Galeano RN - 08/01/2021 5:06 AM CDT Goal Outcome Evaluation: Pt. Slept well throughout the night. Alert and oriented x 4. Pt is??able to use the call light appropriately. Appear to be sleeping during safety rounds. IV abx infused??per schedule. No issue noted. Requested for pudding once this shift. Appears to be comfortable at the time of this report. Call light within reach, continue with poc Patient's most recent vital signs are: Vital signs: BP: 121/73 Temp: 98.6 HR: 76 RR: 18 SpO2: 99 % Patient does not have new respiratory symptoms. Patient does not have new sore throat. Patient does not have a fever greater than 99.5. ?? Plan of Care - Brittnee Scott RN - 07/31/2021 3:36 PM CDT Care Coordination Kiln Packer met with patient to assess level of support patient would have at home. Patient stated her mom was her primary support. Mother is currently watching patients children. Patient stated she would have to talk to her mother to see if she was willing to learn the dressing changes, and IV antibiotics. Kiln Packer asked for permission to discuss update with patients mother, patient granted underwriter mortgage loan this permission. Kiln Packer called mother. Mother discussed that she was already feeling overwhelmed with the responsibility of watching the kids. Mother was not willing to commit to learning the dressing change or IV antibiotics at this time. Kiln Packer will bring this information back to IDT to reassess plan of care. Brittnee Scott RN Plan of Care - Gucci Ko SLP - 07/31/2021 12:56 PM CDT [facility] CAR ELECTRONICS INSTALLER: Discharge Plan: Likely ongoing CAR ELECTRONICS INSTALLER Precautions: IV antibiotics Current Status: Communication: WNL expressive and receptive language Cognition: Mild cognitive impairment- memory, attention, executive function/visuospatial deficits. Swallow:Regular/thin; not formally assessed on TCU Assessment: Patient engaged in deductive reasoning task. Patient requiring moderate level of assistance in order to be successful with moderate level difficulty puzzle. Focus this session on learning strategies to work through problems to which patient verbalized understanding and able to utilize on giraldo bsequent attempts. Other Barriers to Discharge (Family Training, etc): none noted at this time. Plan of Care - Mariam Richter OT - 07/31/2021 12:51 PM CDT [facility] OT: Discharge Plan: home w/ mom to support PRN, Recert: 08/22 Precautions: NWB RLE, falls, mild cog deficits , IV antibiotics, wound vac Current Status: ADLs: ?? Mobility: sba-modified indep w/ knee scooter when scooter close and setup, uses trial and error to problem solve approach for positioning for ease of access and safety ?? Grooming: sba- modified indep ?? Dressing: sba to modified indep ub and LB drg ?? Bathing: set up full body sponge bath w/ assist to manage wound vac, SBA ext tub bench transfer ?? Toileting: commode transfers and clothing management/ pericares w/ modified indep it items accessible. IADLs: indep COLLECTION SYSTEMS CONSULTANT per pt, demo simple kitchen mobility and one item food prep w/ sba to mod Indep w/ knee scooter and no iv's attached at time Vision/Cognition: glasses, demo impaired memory,reasoning skills and judgement, DX acute encephalopathy w/ HX opioid d/o and ETOH use disorder, assess/address cog PRN, demo iimpaired planning skills, prob solves by trial and error Assessment: focused on kitchen mobiity and toileting. See doc flow for details. Pt improvng w/ mobility and toileting. Recommend mom to assist as needed at home w/ pt and pt's kids at discharge. Antic last day OT 08/01 for shower/gg codes/dressing. Other Barriers to Discharge (DME, Family Training, etc): stairs to enter -will provide ext tub bench prior to discharge Plan of Care - Steve Galeano, GENARO - 07/31/2021 6:46 AM CDT Goal Outcome Evaluation: Pt. Slept well throughout the night. Alert and oriented x 4 Pt is able to use the call light appropriately. Appear sleeping during safety rounds. IV abx infused per schedule. No issue noted. Wound dressing fell off this shift. Wound dressing applied per POC. Appears to be comfortable at the time of this report. Call light within reach, continue with poc Patient's most recent vital signs are: Vital signs: BP: 104/67 Temp: 97.3 HR: 91 RR: 18 SpO2: 97 % Patient does not have new respiratory symptoms. Patient does not have new sore throat. Patient does not have a fever greater than 99.5. ? Plan of Care - Steve Galeano RN - 07/31/2021 1:32 AM CDT Goal Outcome Evaluation: Pt is alert and oriented x 4. Able to make needs known to others. No complain of Chest pain, SOB, N/V. Pt pain managed with PRN oxycodone. Stated medication was effective. Wound vac taken off by WOC nurse and mepilex dressing on. PICC line in place wih dressing clean and intact. No sign of infection noted. Continues to have antibiotics via PICC every 8 hours. Infused this shift without difficulty. Appears to be comfortable at the time of this report. Will continue with POC. ? Patient's most recent vital signs are: Vital signs: BP: 104/67 Temp: 97.3 HR: 91 RR: 18 SpO2: 97 % Patient does not have new respiratory symptoms. Patient does not have new sore throat. Patient does not have a fever greater than 99.5. Plan of Care - Roxy Bautista RN - 07/30/2021 3:14 PM CDT VS: See flow sheets O2: none Output: See flow sheets Last BM: 07/30/21 Activity: Transfers to bed side commode indep. [facility] the scooter at [facility] Skin: Red bumps on left upper arm and right lower leg Pain: Yes c/o of aching all over CMS: intact Dressing: PICC dressing, and right ankle dressing, wound vac removed today by WOC Diet: regualr LDA: Picc left AC Equipment: IV pump and pole , scooter, commode Plan: Continue with IV antibiotics Additional Info: Patient is alert x 4 and she directs her needs Patient's most recent vital signs are: Vital signs: BP: 111/66 Temp: 98.3 HR: 77 RR: 16 SpO2: 94 % Patient does not have new respiratory symptoms. Patient does not have new sore throat. Patient does not have a fever greater than 99.5. Goal Outcome Evaluation: Plan of Care Reviewed With: patient Plan of Care - Gucci Ko CAR ELECTRONICS INSTALLER - 07/30/2021 12:49 PM CDT [facility] CAR ELECTRONICS INSTALLER: Discharge Plan: Likely ongoing CAR ELECTRON[employer] INSTALLER Precautions: IV antibiotics Current Status: Communication: WNL expressive and receptive language Cognition: Mild cognitive impairment- memory, attention, executive function/visuospatial deficits. Swallow:Regular/thin; not formally assessed on TCU Assessment: Patient engaged in deductive reasoning task. Patient was surprised at the difficulties she was having and being able to follow the directions consistently and to be able to complete the task. Patient requesting additional similar tasks to be able to complete a more independent setting. Other Barriers to Discharge (Family Training, etc): none noted at this time. Plan of Care - Marleny Aguilera OTA - 07/30/2021 12:41 PM CDT [facility] OT: Discharge Plan: home w/ mom to support PRN, Recert: 08/22 Precautions: NWB RLE, falls, mild cog deficits , IV antibiotics, wound vac Current Status: ADLs: ?? Mobility: sba ?? Grooming: sba ?? Dressing: sba ub and LB drg ?? Bathing: set up full body sponge bath w/ assist to manage wound vac, SBA ext tub bench transfer ?? Toileting: commode transfers and clothing management w/ set up (pericares per nsg w/ setup) IADLs: indep COLLECTION SYSTEMS CONSULTANT per pt, Vision/Cognition: glasses, demo impaired memory,reasoning skills and judgement, DX acute encephalopathy w/ HX opioid d/o and ETOH use disorder, assess/address cog PRN Assessment: Wound vac removed today making mobility easier for patient. Hair washing completed from EOS with setup A while standing within precautions. Continue to address higher level IADLs and functional cognition. Other Barriers to Discharge (DME, Family Training, etc): stairs to enter -will provide ext tub bench prior to discharge Plan of Care - Steve Galeano RN - 07/30/2021 6:31 AM CDT Goal Outcome Evaluation: Pt. Slept well throughout the night. Alert and oriented x 4. Pt is able to use the call light appropriately. Appear sleeping during safety rounds. IV abx infused per schedule. No issue noted. Wound vacintact running at -125 mmg. No alarms noted or reported. Call light within reach, continue with poc Patient's most recent vital signs are: Vital signs: BP: 119/73 Temp: 98.6 HR: 68 RR: 16 SpO2: 96 % Patient does not have new respiratory symptoms. Patient does not have new sore throat. Patient does not have a fever greater than 99.5. ?? Plan of Care - Steve Galeano RN - 07/29/2021 11:06 PM CDT Goal Outcome Evaluation: Pt is alert and oriented x 4. Able top make needs known to others. No complain of Chest pain, SOB, N/V. Pt pain managed with PRN oxycodone. Stated medication was effective. Wound vac in place with dressing intact clean and dry. PICC changed this shift. No sign of infection noted. Continues to have antibiotics via PICC every 8 hours. Infused this shift without difficulty. Appears to be comfortable atthe time of this report. Will continue with POC. Patient's most recent vital signs are: Vital signs: BP: 119/73 Temp: 98.6 HR: 68 RR: 16 SpO2: 96 % Patient does not have new respiratory symptoms. Patient does not have new sore throat. Patient does not have a fever greater than 99.5. ?? Plan of Care - Marycarmen Cross, PT - 07/29/2021 4:35 PM CDT [facility] PT: Discharge Plan: Home to [place], [place] in house with 4 ILANA with dependent children (14,8,4). Precautions: NWB on R LE, Falls Current Status: Bed Mobility: IND Transfer: SBA with knee scooter, need for IV pole and wound vac assist. Gait: 275 ft with knee scooter, SBA Stairs: hop up w/2 step then progressed to 4 step in // to initiate pre-stair activitity Balance: Able to remain with NWB on R for ~ 15 sec with SBA without support Assessment: focus of session to progress to stairs. Pt complains of shoulder pain. Demonstration andcueing for deep squat and jumping up to step vs. using UE to lift up. First bout to 3 step x 5, repeated with 5 step x 4. Pt notes this feels better on shoulder. Demonstarted shower chair method to climb stairs, pt attempts but after two steps does not like it stating it feels like too much work. Plan to continue to address stairs as this is barrier to discharge. Other Barriers to Discharge (DME, Family Training, etc): Will need knee scooter, potentially crutches for stair training. Care Plan - So Rojas RN - 07/29/2021 3:18 PM CDT Alert and verbalizes her needs. Up to commode independently. Had one large BM today. Continent of bowel and bladder. Gus bandage rewrapped around right ankle over wound vac dressing. Regular diet-good appetite. Oxycodone for pain with relief. Continues on IV antibiotics. Pleasant. Patient's most recent vital signs are: Vital signs: BP: 112/62 Temp: 98.5 HR: 83 RR: 16 SpO2: 97 % Patient does not have new respiratory symptoms. Patient does not have new sore throat. Patient does not have a fever greater than 99.5. Plan of Care - SAM BAEZ - 07/29/2021 5:46 AM CDT Goal Outcome Evaluation: Pt. Slept well throughout the night, able to use the call light appropriately. Appear sleeping during safety rounds. IV abx infused well. Wound vac intact running at -125 mmg. No alarms noted or reported. Call light within reach, continue with poc Patient's most recent vital signs are: Vital signs: BP: 104/63 Temp: 98.3 HR: 91 RR: 16 SpO2: 97 % Patient does not have new [id number] symptoms. Patient does not have new sore throat. Patient does not have a fever greater than 99.5. Plan of Care - Steve Galeano RN - 07/28/2021 10:22 PM CDT Goal Outcome Evaluation: Pt is alert and oriented x 4. Able top make needs known to others. No complain of Chest pain, SOB, N/V. Pt pain managed with PRN oxycodone x 2. Stated medication was effective. Wound vac in place withdressing intact clean and dry. Continues to have antibiotics via PICC every 8 hours. Infused this shift without difficulty. Appears to be comfortable at the time of this report. Will continue with POC. Patient's most recent vital signs are: Vital signs: BP: 104/63 Temp: 98.3 HR: 91 RR: 16 SpO2: 97 % Patient does not have new respiratory symptoms. Patient does not have new sore throat. Patient does not have a fever greater than 99.5. Care Plan - So Rojas RN - 07/28/2021 3:39 PM CDT Alert and correctly oriented and verbalizes her needs. Wound vac patent. Had 3 large soft, formed BM's today. Uses bedside commode. Continent of bowel and bladder. Continues on IV antibiotics. PICC line left arm. Regular diet with good appetite. Oxycodone for pain with relief. Participates in therapies. Uses knee scooter-NWB right leg. Pleasant. Patient's most recent vital signs are: Vital signs: BP: 95/56 Temp: 96.2 HR: 65 RR: 20 SpO2: 93 % Patient does not have new respiratory symptoms. Patient does not have new sore throat. Patient does not have a fever greater than 99.5. Plan of Care - Marleny Aguilera OTA - 07/28/2021 12:52 PM CDT [facility] OT: Discharge Plan: home w/ mom to support PRN, Recert: 08/22 Precautions: NWB RLE, falls, mild cog deficits , IV antibiotics, wound vac Current Status: ADLs: ?? Mobility: sba ?? Grooming: sba ?? Dressing: sba ub and LB drg ?? Bathing: set up full body sponge bath w/ assist to manage wound vac, SBA ext tub bench transfer ?? 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 Pt requires sequencing cues and SBA with laundry task. Provided cues for positioning of knee scooter for improved safety with tub transfer, completed with SBA. Other Barriers to Discharge (DME, Family Training, etc): stairs to enter -will provide ext tub bench prior to discharge Plan of Care - Sonja Sanchez RN - 07/28/2021 6:52 AM CDT Pt slept well throughout the night. Able to make needs known. Appear sleeping during rounds. IV abx infused without difficulties. Wound vac is intact, running at -125mmHg, no alarms noted or reported. Call light is in reach, continue w/ POC. Patient's most recent vital signs are: Vital signs: BP: 109/64 Temp: 97.6 HR: 72 RR: 18 SpO2: 98 % Patient does not have new respiratory symptoms. Patient does not have new sore throat. Patient does not have a fever greater than 99.5. Plan of Care - Francisco Mccracken RN - 07/27/2021 10:13 PM CDT Goal Outcome Evaluation: Plan of Care Reviewed With: patient Pt A/O X 4. Afebrile. Lung sounds clear bilaterally with both anterior and posterior. Denies nausea,shortness of breath, and chest pain. Vital signs: Temp: 97.6 ??F (36.4 ??C) Temp src: Oral BP: 109/64 Pulse: 72 Resp: 18 SpO2: 98 % O2 Device: None (Room air) Output: Bowel sounds present in all four quadrants. Voids spontaneously without difficulty in the bedside commode. Activity: Pt Assist x 1 Skin: Abrasion on both knees, multiple scars on all extremities. Pain: Has pain 6/10 in the ankle and given PRN oxycodone and she is tolerating . CMS: Neuro's are intact. Denies numbness and tingling in all extremities. Dressing: dressing on right ankle is intact,wound vac working properly ,dressing changed today by WOCN per pt. Diet: Pt is on a regular diet, but her dinner tray still in her room,she said she will eat later. LDA: PICC on Lt arm is patent. Equipment: Commode, walker Plan: Pt is able to make needs known and the call light is within the pt's reach. Continue to monitor. 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 Swallow:Regular/thin; not formally assessed on TCU Assessment: Administered and interpreted CLQT. Per tool norms, scores WNL for all domains; however, cognitive domain scores borderline (close to lowest score in range) in areas of attention, memory, executive functions and visuospatial skills. Pt expressed awareness of poor memory/recall. Pt managed medications, finances, children's schedules at prior level of function. Skilled CAR ELECTRONICS INSTALLER services indicatedto train in compensatory memory strategies and instruct in executive function tasks to increase independence in iADLs. Pt educated in eval findings, plan of care developed with pt input. Other Barriers to Discharge (Family Training, etc): none noted at this time. Plan of Care - So Rojas RN - 07/27/2021 2:55 PM CDT Goal Outcome Evaluation: Alert and correctly oriented and verbalizes her needs. Groggy and falls asleep easily, even during conversation with pt. Will request pain medication and then falls asleep immediately after request. Participates in therapies. Uses knee scooter for transfer and for mobility in room and hallway. Good appetite. Continent of bowel and bladder. Interacts with staff and pleasant. Patient's most recent vital signs are: Vital signs: BP: 105/64 Temp: 97.8 HR: 74 RR: 18 SpO2: 97 % Patient does not have new respiratory symptoms. Patient does not have new sore throat. Patient does not have a fever greater than 99.5. Plan of Care - Brittnee Scott RN - 07/27/2021 12:15 PM CDT Care Coordination: Kiln Packer met with patient. Kiln Packer introduced role of care coordination. Patient stated they would havemother for support. Patient stated mother would be open to learning abx infusion training, and woundcare training. Kiln Packer will place PLC training, and follow up with wound care education pending woundcare plan for discharge. Encouraged patient to reach out with any questions regarding POC. Left nameand number on patients white board. Brittnee Scott RN Plan of Care - Marycarmen Cross PT - 07/27/2021 10:17 AM CDT [facility] PT: Discharge Plan: Home to [place], [place] in house with 4 ILANA with dependent children (14,8,4). Precautions: NWB on R LE, Falls Current Status: Bed Mobility: IND Transfer: SBA with knee scooter, need for IV pole and wound vac assist. Gait: 275 ft with knee scooter, SBA Stairs: hop up w/2 step then progressed to 4 step in // to initiate pre-stair activitity Balance: Able to remain with NWB on R for ~ 15 sec with SBA without support Assessment: Patient hops in // bars to 3 step x 6, to 5 step x 6, then tried stairs, only able to hop one step, with Min A, difficulty d/t railings being wider than bars and at angle, Pt has some shoulder pain at end of session, is very fatigued this session. Other Barriers to Discharge (DME, Family Training, etc): Will need knee scooter, potentially crutches for stair training. Plan of Care - SAM BAEZ - 07/27/2021 4:06 AM CDT Goal Outcome Evaluation: Pt is alert and oriented x4,Wound vac is patent and running at -125mmHg. LUE SL PICC line dressing is CDI. Continues to have prn oxycodone. Abx therapy ancef in progress, no adverse effect from the antibiotic. Safety rounds completed . Patient's most recent vital signs are: Vital signs: BP: 105/64 Temp: 97.8 HR: 74 RR: 18 SpO2: 97 % Patient does not have new respiratory symptoms. Patient does not have new sore throat. Patient does not have a fever greater than 99.5. Plan of Care - SAM BAEZ - 07/26/2021 7:14 PM CDT Goal Outcome Evaluation: Patient is alert and oriented x4, able to express her needs appropriately. Wound vac is patent and running at -125 mmHg. LUE SL PICC line dressing is CDI. Pt on Abx therapy Ancef. Good appetite requesting pudding frequently. PRN oxycodone requested and given for pain management. Patient denies CP or SOB. Safety rounds completed. Patient's most recent vital signs are: Vital signs: BP: 105/64 Temp: 97.8 HR: 74 RR: 18 SpO2: 97 % Patient does not have new respiratory symptoms. Patient does not have new sore throat. Patient does not have a fever greater than 99.5. Plan of Care - Vickie Erwin RN - 07/26/2021 2:57 PM CDT Pt is A&Ox4. She c/o pain in top and side of R foot. Wound vac intact and draining serosanguinous fluid. IV abx infused through PICC line without issue. Pt is continent of B&B. She is compliantwith NWB RLE. She requested pain medication twice, RN discussed trying to keep up on pain meds to avoid the high and low of pain cycle. Pt agreed to try that. Gus bandage on R foot removed because of pain, coban applied around ankle to hold vac line in place. Pt reported less pain without the gus bandage. Pt has a good appetite. Patient's most recent vital signs are: Vital signs: BP: 95/56 Temp: 96.2 HR: 65 RR: 20 SpO2: 93 % Patient does not have new respiratory symptoms. Patient does not have new sore throat. Patient does not have a fever greater than 99.5. Plan of Care - Roxy Vicente, PT - 07/26/2021 10:36 AM CDT [facility] PT: Discharge Plan: Home to [place], [place] in house with 4 ILANA with dependent children (14,8,4). Precautions: NWB on R LE, Falls Current Status: Bed Mobility: IND Transfer: SBA with knee scooter, need for IV pole and wound vac assist. Gait: 275 ft with knee scooter, SBA Stairs: hop up w/2 step then progressed to 4 step in // to initiate pre-stair activitity Balance: Able to remain with NWB on R for ~ 15 sec with SBA without support Assessment: Pt stating she feels sore and tired today, but eventually agreed to get OOB with knee scooter, sba with A for wound vac. Pt also performed LE and core strengthening while in supine. Pt declined step ups today due to soreness. Other Barriers to Discharge (DME, Family Training, etc): Will need knee scooter, potentially crutches for stair training. 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 See flowsheet for details. Other Barriers to Discharge (DME, Family Training, etc): stairs to enter, antic need for tub bench or chair Plan of Care - Christina Maza RN - 07/26/2021 5:07 AM CDTSummary: CARE PLAN NOTE Goal Outcome Evaluation: Plan of Care Reviewed With: patient Overall Patient Progress: no change R ankle/ foot pain comfortably managed with Oxycodone 10 mg tab and Atarax 25 mg tab x 1 so far thisshift. Pt reported how difficult to describe type of pain she has on her R foot as there are different sensation in different areas- - sharp, achy, spasm-like. Wound vac intact and functioning at -125 mmHg cont per order- no alarm noted. Independent to BSC. Compliant with NWB status to RLE. PICC patent for IV abx x 1. Food tray still in pt's room as she refused to take it out yet. Would like to take few bites throughout the night whenever she gets the chance. Pt has no c/o SOB and no s/s of respiratory issue noted at RA. Appear to be sleeping/resting between cares/ meds. Continue with plan of care. Patient's most recent vital signs are: Vital signs: BP: 113/54 Temp: 97.4 HR: 77 RR: 16 SpO2: 96 % Patient does not have new respiratory symptoms. Patient does not have new sore throat. Patient does not have a fever greater than 99.5. Plan of Care - Maryam Rose RN - 07/25/2021 10:16 PM CDT Goal Outcome Evaluation: Alert and oriented x 4. Wound vac is patent and running 125 mm HG. Ate with good appetite. PICC line dressing is C/D/I . Ate with good appetite. Ate with good appetite. Pain was manage by Oxycodone x 1 during the shift.Denies chest pain and shortness of breath. Patient's most recent vital signs are: Vital signs: BP: 113/54 Temp: 97.4 HR: 77 RR: 16 SpO2: 96 % Patient does not have new respiratory symptoms. Patient does not have new sore throat. Patient does not have a fever greater than 99.5. Care Plan - Juanis Rosas RN - 07/25/2021 4:16 PM CDT RN: Using prn pain meds for right ankle pain. WOC nurse changed vac dressing today without problems noted. Serous sanguinous drainage in cannister not emptied today. Makes needs known. Took scheduled lactulose this morning and had XL loose soft bm this shift. Patient's most recent vital signs are: Vital signs: BP: 95/55 Temp: 98.3 HR: 74 RR: 18 SpO2: 98 % Patient does not have new respiratory symptoms. Patient does not have new sore throat. Patient does not have a fever greater than 99.5. Plan of Care - Marlena Castellanos PTA - 07/25/2021 4:06 PM CDT [facility] PT: Discharge Plan: Home to [place], [place] in house with 4 ILANA with dependent children (14,8,4). Precautions: NWB on R LE, Falls Current Status: Bed Mobility: IND Transfer: SBA with knee scooter, need for IV pole and wound vac assist. Gait: 275 ft with knee scooter, SBA Stairs: hop up w/2 step then progressed to 4 step in // to initiate pre-stair activitity Balance: Able to remain with NWB on R for ~ 15 sec with SBA without support Assessment: Performed car transfer. Initiated pre-stair training with hopping up onto step in //, CGA, BUE on // w/visual demonstration and v/c for technique and safety: 2 step for 2 bouts x 8 reps, 4 step for 2 bouts x 10 reps with seated rest breaks for recovery between bouts d/t fatigue. Pt agreeable to trial 6 step hops in tomorrow's session. Amb 152ft x 2 with use of knee scooter, CGA with therapist managing wound vac. Pt able to perform turns, cross transitions and perform retro tasks with good safety awareness. Other Barriers to Discharge (DME, Family Training, etc): Will need knee scooter, potentially crutches for stair training. Plan of Care - Mariam Richter OT - 07/25/2021 12:22 PM CDT [facility] OT: Discharge Plan: home w/ mom to support PRN, Recert: 08/22 Precautions: NWB RLE, falls, mild cog deficits , IV antibiotics, wound vac Current Status: ADLs: ??? Mobility: sba ??? Grooming: sba ??? Dressing: sba ub and LB drg ??? Bathing: set up full body sponge bath w/ assist to manage wound vac ??? 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 , focus treatment on IADLs and AE needs for home. Other Barriers to Discharge (DME, Family Training, etc): stairs to enter, antic need for tub bench or chair Plan of Care - Liza Lloyd RN - 07/25/2021 4:33 AM CDT Goal Outcome Evaluation: Pt.A&Ox4. Uses call light appropriately. R ankle wound w/vac intact @ -125mmHg continuous suction and is NWB RLE. Indep.pivots to BSC - continent bladder - no BM yet during shift / on Lactulose andneeds to have 3-4 stools/day. Continues IV abx via SL valved picc LUE. Requested and rec'd Tyl./Atarax @ 0100 for pain/sleep. Also stated was previously on Melatonin but not ordered here / web- paged H.O.and order placed for Melatonin 5mg po PRN > administered @ 0130. Dinner tray remains on bedside table per pt.preference, until breakfast tray arrives as pt.states occasionally gets hungry during the night. 0600 - Requested and rec'd Oxycodone 10mg po for c/o R ankle pain. Patient's most recent vital signs are: Vital signs: BP: 117/70 Temp: 98.5 HR: 86 RR: 18 SpO2: 99 % Patient does not have new respiratory symptoms. Patient does not have new sore throat. Patient does not have a fever greater than 99.5. Plan of Care - Maryam Rose RN - 07/24/2021 6:50 PM CDT Goal Outcome Evaluation: Pt alert and oriented x4. Had wound vac running at -125 mmHg on R ankle covered by gus wraps-C/D/I. Had 1 BM and convince pt to take Lactulose. SL PICC was patent able to infuse antibiotic with out anyissue. PRN oxycodone given x 2. Denies chest pain and shortness of breath. Able to make needs known. Call light with in reach. Patient's most recent vital signs are: Vital signs: BP: 117/70 Temp: 98.5 HR: 86 RR: 18 SpO2: 99 % Patient does not have new respiratory symptoms. Patient does not have new sore throat. Patient does not have a fever greater than 99.5. Care Plan - Juanis Rosas RN - 07/24/2021 2:56 PM CDT RN: makes needs known. Pain meds for RLE effective pain control. Wound vac in place, no dressing changes needed with wound vac in place. 1 loose stool this morning and pt declined morning lactulose. Needs 3-4 per 24 hours. Did reinforce this to pt. Using subutex SL every 8 hours. Patient's most recent vital signs are: Vital signs: BP: 114/72 Temp: 97.2 HR: 89 RR: 18 SpO2: 98 % Patient does not have new respiratory symptoms. Patient does not have new sore throat. Patient does not have a fever greater than 99.5. 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 Other Barriers to Discharge (DME, Family Training, etc): stairs to enter, antic need for tub bench or chair Pharmacy-Medication Regimen Review - Suze Morales [facility] - 07/24/2021 12:21 PM CDT Pharmacy Medication Regimen Review Stephani King is a 40 year old female who is currently in the Transitional Care Unit. Assessment: Upon review of the medications and patient chart the following irregularities were found: Medications without appropriate indications/durations: cefazolin needs stop date of 08/21/21 per infectious disease recommendations Plan: Consider adding stop date of 08/21/21 to cefazolin order. Attending provider will be sent this note for review. If there are any emergent issues noted above, pharmacist will contact provider directly by phone. Pharmacy will periodically review the resident's medication regimen for any PRN medications not administered in > 72 hours and discontinue them. The pharmacist will discuss gradual dose reductions of psychopharmacologic medications with interdisciplinary team on a regular basis. Please contact pharmacy if the above does not answer specific medication questions/concerns. Background: A pharmacist has reviewed all medications and pertinent medical history today. Medications were reviewed for appropriate use and any irregularities found are listed with recommendations. Suze Morales, SidneyD, [facility] Current Facility-Administered Medications: ??? [START ON 07/26/2021] - Skin Test Reading -, , Does not apply, Q21 Days, Bethanie Dowd MD ??? acetaminophen (TYLENOL) tablet 975 mg, 975 mg, Oral, Q8H PRN, Bethanie Dowd MD, 975 mg at 07/24/21 0912 ??? aspirin EC tablet 162 mg, 162 mg, Oral, Daily, Bethanie Dowd MD, 162 mg at 07/24/21 0859 ??? buprenorphine (SUBUTEX) sublingual tablet 8 mg, 8 mg, Sublingual, TID, Bethanie Dowd MD, 8 mg at07/24/21 0524 ??? ceFAZolin (ANCEF) intermittent infusion 2 g in 100 mL dextrose PRE-MIX, 2 g, Intravenous, Q8H, La Nena Babb MD, Last Rate: 200 mL/hr at 07/24/21 0905, 2 g at 07/24/21 09 ??? clobetasol (TEMOVATE) 0.05 % ointment, , Topical, BID, Bethanie Dowd MD, Given at 07/24/21 0917 ??? diphenhydrAMINE (BENADRYL) capsule 25 mg, 25 mg, Oral, Q6H PRN, Bethanie Dowd MD ??? famotidine (PEPCID) tablet 20 mg, 20 mg, Oral, BID, Bethanie Dowd MD, 20 mg at 07/24/21 0900 ??? fexofenadine (ELOISE) tablet 180 mg, 180 mg, Oral, Daily PRN, Bethanie Dowd MD ??? folic acid (FOLVITE) tablet 1 mg, 1 mg, Oral, Daily, Bethanie Dowd MD, 1 mg at 07/24/21 0900 ??? gabapentin (NEURONTIN) capsule 300 mg, 300 mg, Oral, At Bedtime, Bethanie Dowd MD, 300 mg at 07/23/212117 ??? hydrOXYzine (ATARAX) tablet 25 mg, 25 mg, Oral, Q6H PRN, Bethanie Dowd MD ??? hydrOXYzine (ATARAX) tablet 25 mg, 25 mg, Oral, At Bedtime, Bethanie Dowd MD, 25 mg at 07/23/212117 ??? lactulose (CEPHULAC) Packet 20 g, 20 g, Oral, BID, La Nena Babb MD ??? levothyroxine (SYNTHROID/LEVOTHROID) tablet 125 mcg, 125 mcg, Oral, QAM, Bethanie Dowd MD, 125 mcg at 07/24/21 0859 ??? [START ON 07/25/2021] lidocaine (XYLOCAINE) 4 % solution, , Topical, Q Mon Wed Fri AM, La Nena Babb MD ??? methocarbamol (ROBAXIN) tablet 750 mg, 750 mg, Oral, TID, Bethanie Dowd MD, 750 mg at 07/24/21 0900 ??? naloxone (NARCAN) injection 0.2 mg, 0.2 mg, Intravenous, Q2 Min PRN OR naloxone (NARCAN) injection 0.4 mg, 0.4 mg, Intravenous, Q2 Min PRN OR naloxone (NARCAN) injection 0.2 mg, 0.2 mg, Intramuscular, Q2 Min PRN OR naloxone (NARCAN) injection 0.4 mg, 0.4 mg, Intramuscular, Q2 Min PRN, La Nena Babb MD ??? nicotine (NICODERM CQ) 14 MG/24HR 24 hr patch 1 patch, 1 patch, Transdermal, Q24H, Bethanie Dowd MD, 1 patch at 07/24/21 0858 ??? nicotine Patch in Place, , Transdermal, Q8H COLLEEN, La Nena Babb MD ??? Nurse may request from Pharmacy a change of form of medication (e.g. Liquid to tablet)., , Does not apply, Continuous PRN, Bethanie Dowd MD ??? oxyCODONE (ROXICODONE) tablet 5-10 mg, 5-10 mg, Oral, Q6H PRN, Bethanie Dowd MD, 10 mg at 07/24/21 0912 ??? polyethylene glycol (MIRALAX) Packet 17 g, 17 g, Oral, Daily PRN, Bethanie Dowd MD ??? senna-docusate (SENOKOT-S/PERICOLACE) 8.6-50 MG per tablet 2 tablet, 2 tablet, Oral, BID, Bethanie Dowd MD, 2 tablet at 07/23/21 2118 ??? sodium chloride (PF) 0.9% PF flush 10-20 mL, 10-20 mL, Intracatheter, q1 min prn, La Nena Babb MD ??? sodium chloride (PF) 0.9% PF flush 10-40 mL, 10-40 mL, Intracatheter, Q7 Days, La Nena Babb MD ??? sodium chloride (PF) 0.9% PF flush 10-40 mL, 10-40 mL, Intracatheter, Q1H PRN, La Nena Babb MD ??? thiamine (B-1) tablet 100 mg, 100 mg, Oral, Daily, Bethanie Dowd MD, 100 mg at 07/24/21 0900 ??? triamcinolone (KENALOG) 0.1 % ointment, , Topical, BID, Bethanie Dowd MD, Given at 07/24/21 0916 ??? tuberculin injection 5 Units, 5 Units, Intradermal, Q21 Days, Bethanie Dowd MD, 5 Units at 07/24/21 1200 ??? venlafaxine (EFFEXOR XR) 24 hr capsule 300 mg, 300 mg, Oral, Daily, Bethanie Dowd MD, 300 mg at 07/24/21 0900 ??? Vitamin D3 (CHOLECALCIFEROL) tablet 2,000 Units, 2,000 Units, Oral, Daily, Bethanie Dowd MD, 2,000 Units at 07/24/21 0859 Associated attestation - La Nena Babb MD - 07/25/2021 12:57 PM CDT La Nena Babb MD Pharmacy-TCU review of H&P - Suze Morales [facility] - 07/24/2021 12:21 PM CDT I have reviewed this patient's TCU admission History & Physical for medication related changes/recommendations identified by the admitting provider. I am confirming that there are no recommendations requiring changes to medication orders are indicated at this time based on the provider recommendations in the H&P. Suze Morales, SidneyD, BCPS Plan of Care - Smita Stone, PT - 07/24/2021 12:12 PM CDT [facility] PT: Discharge Plan: Home to [place], [place] in house with 4 ILANA with dependent children (14,8,4). Precautions: NWB on R LE, Falls Current Status: Bed Mobility: IND Transfer: SBA with knee scooter, need for IV pole and wound vac assist. Gait: 275 ft with knee scooter, SBA Stairs: NT at eval Balance: Able to remain with NWB on R for ~ 15 sec with SBA without support Assessment: PT: Pt is a 40 y/o female who presents for PT evaluation following hospitalization for osteomyeltiis of R ankle and subsequent surgical management. PT evaluation revealed decreased endurance, strength, and tolerance for out of bed activity with increased need for assist given NWB status onR LE and wound vac placement. Skilled PT is warrented to address these deficits, aide in safe returnto prior living environment, and reduce risk of adverse healing event. Other Barriers to Discharge (DME, Family Training, etc): Will need knee scooter, potentially crutches for stair training. Plan of Care - Liza Lloyd RN - 07/24/2021 3:41 AM CDT Goal Outcome Evaluation: Pt.A&Ox4. Uses call light appropriately. Indep.pivots to BSC - continent bladder. Maintains NWB RLE. RLE gus wrapped and w/wound vac intact @ -125mmHg continuous suction - no alarms. Has SL valved picc LUE - IV abx q8hrs. Pt.states picc placed @ [facility]. Prefers to keep dinner tray on bedside table until breakfast, stating she occ.gets hungry during the night. No PRN pain med requests as of yet. Patient's most recent vital signs are: Vital signs: BP: 93/59 Temp: 98.3 HR: 101[standing[ RR: 17 SpO2: 97 % Patient does not have new respiratory symptoms. Patient does not have new sore throat. Patient does not have a fever greater than 99.5. Plan of Care - Dc Nichols RN - 07/23/2021 10:38 PM CDT Goal Outcome Evaluation: Patient is alert and oriented x4. Able to make needs known to staff. Patient denied SOB, dizziness, headache, N&V, and chest pain. Continent of both bowel and bladder. Uses bedside commode. Requires assist-1/SBA with transfers with gait belt and walker. On contact precautions for MRSA. LUE 1L PICC is intact and dressing changed this shift d/t picking by patient. Per report dressing was changed this morning, but patient had picked at it when she arrived on unit. Different type of PICCdressing to be used on next change in order to avoid skin irritation which cause patient to scratch and itch PICC spot. Dressing to Right ankle and wound vac remains intact and suctioning at 125mmHg. Takes meds whole with thin fluids. Continues on regular diet. Requested to see social media intern about setting up Advance Directive, sticky note left. Patient's mother (So) was called and informed about transfer. PRN oxycodone x1 for pain. Personal medication in patient's bag, collected, labelled, labelled, and sent to security. Vitals are WNL. Patient's most recent vital signs are: Vital signs: BP: 93/59 Temp: 98.3 HR: 101[standing[ RR: 17 SpO2: 97 % Patient does not have new respiratory symptoms. Patient does not have new sore throat. Patient does not have a fever greater than 99.5. Plan of Care - Dc Nichols RN - 07/23/2021 4:43 PM CDT Patient is a 40 year old female admitted to room 410 via stretcher with medical transport. Patient is alert and oriented X 3. See [facility] for VS and assessment. Patient is able to transfer SBA using walker. Patient was settled into their room, shown call light, tv, mealtimes etc. Oriented to unit. Will continue monitoring pain level and VS. Notifying MD with any concerns. Follow MD orders for cares and medications. Level of Schooling:college Ethnicity: Marital Status: Dentures: No Hearing Aid: No Smoker: Yes Glasses: Yes Occupation: None for now Falls 0-1 mo: 0 2-6 mo: 0 Stairs prior function: Independent Prior device use: Other None Advanced Care Directive Referral to Social Work?Yes documented in this encounter Plan of Treatment Upcoming Encounters Date Type Specialty Care Team Description 11/15/2021 Office Visit Wound Care Luis Camara DPM [address] [place] [address] (Wo rk) Scheduled Referrals Name Type Priority Associated Diagnoses Order S chedule Adult Dermatology Referral Routine: Next Steroid-induced acne E xpected: Referral available opening 08/22/2021 (Approximate), Expires: 08/22/2022 Home Care Referral Referral Routine: Next Osteomyelitis of righ t Ordered: available opening ankle, unspecified 07/2021 type (H) documented as of this encounter Procedures Procedure Name Priority Date/Time Associated Comments Diagnosis CBC WITH PLATELETS Routine 08/20/2021 7:36 AM Res ults for this AND DIFFERENTIAL CDT procedure a re in the results section. CBC WITH PLATELETS & Routine 08/20/2021 7:36 AM R esults for this DIFFERENTIAL CDT procedure are i n the results section. DIFFERENTIAL Routine 08/20/2021 7:36 AM Results f or this CDT procedure are i n the results section. CRP INFLAMMATION Routine 08/20/2021 7:36 AM Resul ts for this CDT procedure are i n the results section. BASIC METABOLIC PANEL Routine 08/20/2021 7:36 AM Results for this CDT procedure are i n the results section. EXTRA TUBE Routine 08/17/2021 5:07 AM Results f or this CDT procedure are i n the results section. EXTRA GREEN TOP Routine 08/17/2021 5:07 AM Result s for this (LITHIUM HEPARIN) CDT procedure are in TUBE the results section. CBC WITH PLATELETS Routine [...] procedure are i n the results section. COVID-19 VIRUS STAT 08/14/2021 5:56 PM Results for this (CORONAVIRUS) BY PCR CDT procedu re are in the results section. CBC WITH PLATELETS Routine 08/13/2021 6:05 AM Res ults for this AND DIFFERENTIAL CDT procedure a re in the results section. CBC WITH PLATELETS & Routine 08/13/2021 6:05 AM R esults for this DIFFERENTIAL CDT procedure are i n the results section. CRP INFLAMMATION Routine 08/13/2021 6:05 AM Resul ts for this CDT procedure are i n the results section. BASIC METABOLIC PANEL Routine 08/13/2021 6:05 AM Results for this CDT procedure are i n the results section. COVID-19 VIRUS Routine 08/10/2021 2:52 PM Results for this (CORONAVIRUS) BY PCR CDT procedu re are in the results section. EXTRA TUBE Routine 08/09/2021 6:16 AM Results f or this CDT procedure are i n the results section. EXTRA PURPLE TOP TUBE Routine 08/09/2021 6:16 AM Results for this CDT procedure are i n the results section. BASIC METABOLIC PANEL Routine 08/09/2021 5:45 AM Results for this CDT procedure are i n the results section. CRP INFLAMMATION Routine 08/06/2021 6:00 AM Resul ts for this CDT procedure are i n the results section. BASIC METABOLIC PANEL Routine 08/06/2021 6:00 AM Results for this CDT procedure are i n the results section. CBC WITH PLATELETS Routine 08/06/2021 5:58 AM Res ults for this AND DIFFERENTIAL CDT procedure a re in the results section. CBC WITH PLATELETS & Routine 08/06/2021 5:58 AM R esults for this DIFFERENTIAL CDT procedure are i n the results section. BASIC METABOLIC PANEL Routine 08/02/2021 6:13 AM Results for this CDT procedure are i n the results section. CBC WITH PLATELETS Routine 07/30/2021 5:53 AM Res ults for this AND DIFFERENTIAL CDT procedure a re in the results section. CBC WITH PLATELETS & Routine 07/30/2021 5:53 AM R esults for this DIFFERENTIAL CDT procedure are i n the results section. CRP INFLAMMATION Routine 07/30/2021 5:53 AM Resul ts for this CDT procedure are i n the results section. BASIC METABOLIC PANEL Routine 07/30/2021 5:53 AM Results for this CDT procedure are i n the results section. BASIC METABOLIC PANEL Routine 07/26/2021 8:05 AM Results for this CDT procedure are i n the results section. EXTRA TUBE Routine 07/26/2021 8:04 AM Results f or this CDT procedure are i n the results section. EXTRA PURPLE TOP TUBE Routine 07/26/2021 8:04 AM Results for this CDT procedure are i n the results section. EXTRA TUBE Routine 07/25/2021 5:51 AM Results f or this CDT procedure are i n the results section. EXTRA PURPLE TOP TUBE Routine 07/25/2021 5:51 AM Results for this CDT procedure are i n the results section. TSH WITH FREE T4 Routine 07/25/2021 5:51 AM Resul ts for this REFLEX CDT procedure are i n the results section. documented in this encounter Results (ABNORMAL) Manual Differential (08/20/2021 7:36 AM CDT) [facility] Method Time Signature % Neutrophils 45 % [...] City/State/ZIP Code Phon [place] [phone] [place] [address], Room M309 (ABNORMAL) CBC with platelets and differential (08/20/2021 7:36 AM CDT) [facility] gist Method Time Signature WBC Count 4.8 [...] LAB - BLOOD ORDERABLES Performing Organization Address City/[facility]/ZIP Code Ph[place] [phone] [place] [address], Room M309 (ABNORMAL) CRP inflammation (08/20/2021 7:36 AM CDT) [facility] [employer] Method Time Signature CRP Inflammation 8.9 (H) [...] City/State/ZIP Code [place] [address] Care Lab [address] [facility], Room M309 (ABNORMAL) Basic metabolic panel (08/20/2021 7:36 AM CDT) [facility] Method Time Signature Sodium 142 133 - [...] es age and gender (Paul et al., NE, DOI: 10.1056/[id number]) Specimen Anatomical Collection Method / Collection Time Recei isak Time (Source) Location / Volume Laterality Blood STRUCTURE OF LEFT Venipuncture / 08/20/2021 7:36 08/20 7:40 UPPER LIMB / Unknown AM CDT AM CDT Unknown La Nena Babb MD LAB - BLOOD ORDERABLES Performing Organization Address City/State/ZIP Code [place] [address] Care [address] [place] [address], Room M309 Extra Green Top ([place] Heparin) Tube (08/17/2021 5:07 AM CDT) P athologist Signature Hold Specimen JIC 08/17/2021 [facility] 6:48 AM CDT Specimen Anatomical Collection Method / Collection Time Recei isak Time (Source) Location / Volume Laterality Blood STRUCTURE OF RIGHT Venipuncture / 08/17/2021 5:07 07/0 02/2021 5:45 UPPER LIMB / Unknown AM CDT AM CDT Unknown Lab Non-Fv Credentialed Provider LAB - BLOOD ORDERABLE S Performing Organization Address City/State/[facility] Code Phon [place] [address] Care [address] [place] [address], Room M309 (ABNORMAL) CBC with platelets (08/17/2021 5:07 AM CDT) [facility] gist Method Time Signature WBC Count 8.2 [...] LAB - BLOOD ORDERABLES Performing Organization Address City/[facility]/ZIP Code Ph[place] [phone] Care Lab [address] [place] [address], Room M309 Extra Purple Top Tube (08/16/2021 [...] City/State/ZIP Code [place] [address] Care Lab [address] [place] [address], Room M309 (ABNORMAL) Hepatic panel (08/16/2021 1:05 [...] City/State/ZIP Code Phon e Number UR LABORATORY [facility] [place] [phone] Care Lab [address] [facility], Room M309 (ABNORMAL) Basic metabolic panel (08/16/2021 1:05 PM CDT) [facility] Method Time Signature Sodium 138 133 - 144 08/16/2021 [facility] mmol/L 1:47 PM CDT Potassium 4.1 3.4 - 5.3 08/16/2021 [facility] mmol/L 1:47 PM CDT Chloride 107 94 - 109 08/16/2021 [facility] mmol/L 1:47 PM CDT Carbon Dioxide 25 20 - 32 08/16/2021 [facility] (CO2) mmol/L 1:47 PM CDT Anion Gap 6 3 - 14 08/16/2021 [facility] mmol/L 1:47 PM CDT Urea Nitrogen 11 7 - 30 08/16/2021 [facility] mg/dL 1:47 PM CDT Creatinine 0.35 (L) 0.52 - 08/16/2021 [facility] 1.04 mg/dL 1:47 PM CDT Calcium 8.4 (L) 8.5 - 10.1 08/16/2021 [facility] mg/dL 1:47 PM CDT Glucose 365 (H) 70 - 99 08/16/2021 [facility] mg/dL 1:47 PM CDT GFR Estimate >90 >60 08/16/2021 [facility] mL/min/1.7 1:47 PM CDT 3m2 Comment: Effective February 06, 2021 eGF Rcr in adults is calculated using the 2020 CKD-EPI creatinine equation which includ es age and gender (Paul et al., NE, DOI: 10.1056/[id number]) Specimen Anatomical Collection Method / Collection Time Recei isak Time (Source) Location / Volume Laterality Blood STRUCTURE OF LEFT Venipuncture / 08/16/2021 1:05 08/16 1:16 UPPER LIMB / Unknown PM CDT PM CDT Unknown La Nena Babb MD LAB - BLOOD ORDERABLES Performing Organization Address City/State/ZIP Code [place] [address] Care Lab [address] [facility], Room M309 Asymptomatic COVID-19 Virus (Coronavirus) by PCR Nasopharyngeal (08/14/2021 5:56 PM CDT) Analysis Performed At Patho logist Time Signature [...] SARS-COV-2 in individuals who meet SARS-CoV-2 clini macarena and/or epidemiological criteria. Test performance is unknown [...] exposure or clinical presentation sugges ts COVID-19. ??[facility] are certified under the Clinical Laborat ory Improvement Amendments of 1988 (CLIA-88) as qualified to perform moderate and/or high complexity laboratory testing. Christiano Santacruz MD LAB - MICRO GENERAL ORDERABL ES Performing Organization Address City/State/ZIP Code Phon e Number UR LABORATORY [facility] [place] [address] Care Lab [address] [facility], Room M309 (ABNORMAL) CBC with platelets and differential (08/13/2021 6:05 AM CDT) [facility] gist Method Time Signature WBC Count 5.1 4.0 - 08/13/2021 [facility] 11.0 6:38 AM CDT 10e3/uL RBC Count 3.39 (L) 3.80 - 08/13/2021 [facility] 5.20 6:38 AM CDT 10e6/uL Hemoglobin 10.1 (L) 11.7 - 08/13/2021 [facility] 15.7 g/dL 6:38 AM CDT Hematocrit 31.0 (L) 35.0 - 08/13/2021 [facility] 47.0 % 6:38 AM CDT MCV 91 78 - 100 08/13/2021 [facility] fL 6:38 AM CDT MCH 29.8 26.5 - 08/13/2021 [facility] 33.0 pg 6:38 AM CDT MCHC 32.6 31.5 - 08/13/2021 [facility] 36.5 g/dL 6:38 AM CDT RDW 13.5 10.0 - 08/13/2021 [facility] 15.0 % 6:38 AM CDT Platelet Count 116 (L) 150 - 450 08/13/2021 [facility] 10e3/uL 6:38 AM CDT % Neutrophils 46 % 08/13/2021 [facility] 6:38 AM CDT % Lymphocytes 40 % 08/13/2021 [facility] 6:38 AM CDT % Monocytes 7 % 08/13/2021 [facility] 6:38 AM CDT % Eosinophils 6 % 08/13/2021 [facility] 6:38 AM CDT % Basophils 0 % 08/13/2021 [facility] 6:38 AM CDT % Immature 1 % 08/13/2021 [facility] Granulocytes 6:38 AM CDT NRBCs per 100 0 <1 /100 08/13/2021 [facility] WBC 6:38 AM CDT Absolute 2.3 1.6 - 8.3 08/13/2021 [facility] Neutrophils 10e3/uL 6:38 AM CDT Absolute 2.0 0.8 - 5.3 08/13/2021 [facility] Lymphocytes 10e3/uL 6:38 AM CDT Absolute 0.4 0.0 - 1.3 08/13/2021 [facility] Monocytes 10e3/uL 6:38 AM CDT Absolute 0.3 0.0 - 0.7 08/13/2021 [facility] Eosinophils 10e3/uL 6:38 AM CDT Absolute 0.0 0.0 - 0.2 08/13/2021 [facility] Basophils 10e3/uL 6:38 AM CDT Absolute 0.0 <=0.4 08/13/2021 [facility] Immature 10e3/uL 6:38 AM CDT Granulocytes Absolute NRBCs 0.0 10e3/uL 08/13/2021 [facility] 6:38 AM CDT Specimen Anatomical Collection Method / Collection Time Recei isak Time (Source) Location / Volume Laterality Blood STRUCTURE OF LEFT Venipuncture / 08/13/2021 6:05 08/13 6:34 UPPER LIMB / Unknown AM CDT AM CDT Unknown La Nena Babb MD LAB - BLOOD ORDERABLES Performing Organization Address City/State/ZIP Code [place] [address] Care Lab [address] [facility], Room M309 CRP inflammation (08/13/2021 6:05 AM CDT) Analysis Performed At Patho logist Time Signature CRP Inflammation 3.1 0.0 - 8.0 08/13/2021 UR LABORATOR Y mg/L 7:02 AM CDT Specimen Anatomical Collection Method / Collection Time Recei isak Time (Source) Location / Volume Laterality Blood STRUCTURE OF LEFT Venipuncture / 08/13/2021 6:05 08/13 6:34 UPPER LIMB / Unknown AM CDT AM CDT Unknown La Nena Babb MD LAB - BLOOD ORDERABLES Performing Organization Address City/State/ZIP Code Phon e Number UR LABORATORY [facility] [place] [address] Care Lab [address] [facility], Room M309 (ABNORMAL) Basic metabolic panel (08/13/2021 6:05 AM CDT) [facility] gist Method Time Signature Sodium 141 133 - 144 08/13/2021 [facility] mmol/L 7:01 AM CDT Potassium 3.8 3.4 - 5.3 08/13/2021 [facility] mmol/L 7:01 AM CDT Chloride 109 94 - 109 08/13/2021 [facility] mmol/L 7:01 AM CDT Carbon Dioxide 26 20 - 32 08/13/2021 [facility] (CO2) mmol/L 7:01 AM CDT Anion Gap 6 3 - 14 08/13/2021 [facility] mmol/L 7:01 AM CDT Urea Nitrogen 9 7 - 30 08/13/2021 [facility] mg/dL 7:01 AM CDT Creatinine 0.31 (L) 0.52 - 08/13/2021 [facility] 1.04 mg/dL 7:01 AM CDT Calcium 8.8 8.5 - 10.1 08/13/2021 [facility] mg/dL 7:01 AM CDT Glucose 136 (H) 70 - 99 08/13/2021 [facility] mg/dL 7:01 AM CDT GFR Estimate >90 >60 08/13/2021 [facility] mL/min/1.7 7:01 AM CDT 3m2 Comment: Effective February 06, 2021 eGF Rcr in adults is calculated using the 2020 CKD-EPI creatinine equation which includ es age and gender (Paul et al., NEJ, DOI: 10.1056/[id number]) Specimen Anatomical Collection Method / Collection Time Recei isak Time (Source) Location / Volume Laterality Blood STRUCTURE OF LEFT Venipuncture / 08/13/2021 6:05 08/13 6:34 UPPER LIMB / Unknown AM CDT AM CDT Unknown La Nena Babb MD LAB - BLOOD ORDERABLES Performing Organization Address City/State/ZIP Code Phon e Number UR LABORATORY [facility] [place] [address] Care Lab [address] [facility], Room M309 Asymptomatic COVID-19 Virus (Coronavirus) by PCR Nasopharyngeal (08/10/2021 2:52 PM CDT) [facility] Method Time Signature SARS CoV2 PCR Negative Negative, 08/11/2021 [facility] Testing sent to 9:17 AM CDT LABORATORY reference lab. Results will be returned via unsolicited result Comment: NEGATIVE: SARS-CoV-2 (COVID-19) RNA not detected, presumed negative. Specimen Anatomical Location / Collection Method Collection Jeff e Received Time (Source) Laterality / Volume Swab NASOPHARYNGEAL Non-blood 08/10/2021 2:52 08/10/2021 3:00 STRUCTURE / Unknown Collection / PM CDT PM CDT Unknown Narrative [facility]AT[facility] - 08/11/2021 9:17 AM C DT Testing was performed using the ben SARS-CoV-2 assay on the ben [id number] System. This test should be ordered for the detection of SARS-CoV-2 in individuals who meet SARS- CoV-2 clinical and/or epidemiological criteria. Test performan ce is unknown in asymptomatic patients. This test is for in vitro diag nostic use under the FDA EUA for laboratories certified under CLIA to perform high and/or moderate complexity testing. This test has not be en FDA cleared or approved. A negative result does not rule out the pr esence of PCR inhibitors in the specimen or target RNA in concentrat ion below the limit of detection for the assay. The possibility of a false negative should be considered if the patient's recent ex posure or clinical presentation suggests COVID-19. This charito t was validated by the [facility] Infectious Diseases Diag nostic Laboratory. This laboratory is certified under the [facility] [place] Laboratory Improvement Amendments of 1988 (CLIA-88) as qualifie d to perform high and/or moderate complexity laboratory testing. Kayden Mendes MD LAB - MICRO GENERAL ORDERABL ES Performing Organization Address City/State/ZIP Code Phon e Number [facility] [place] [address] Diag. Lab [address] [facility], Room [address]297 Extra Purple Top Tube (08/09/2021 6:16 AM CDT) P athologist Signature Hold Specimen JIC 08/09/2021 [facility] 7:33 AM CDT Specimen Anatomical Collection Method / Collection Time Recei isak Time (Source) Location / Volume Laterality Blood STRUCTURE OF LEFT Venipuncture / 08/09/2021 6:16 08/09 6:16 UPPER LIMB / Unknown AM CDT AM CDT Unknown Bethanie Dowd MD LAB - BLOOD ORDERABLES Performing Organization Address City/State/ZIP Code Phon e Number [facility] [place] [address] Care Lab [address] [facility], Room M309 (ABNORMAL) Basic metabolic panel (08/09/2021 5:45 AM CDT) Patholo gist Method Time Signature Sodium 142 133 - 144 08/09/2021 [facility] mmol/L 6:50 AM CDT Potassium 3.9 3.4 - 5.3 08/09/2021 [facility] mmol/L 6:50 AM CDT Chloride 109 94 - 109 08/09/2021 [facility] mmol/L 6:50 AM CDT Carbon Dioxide 28 20 - 32 08/09/2021 [facility] (CO2) mmol/L 6:50 AM CDT Anion Gap 5 3 - 14 08/09/2021 [facility] mmol/L 6:50 AM CDT Urea Nitrogen 6 (L) 7 - 30 08/09/2021 [facility] mg/dL 6:50 AM CDT Creatinine 0.43 (L) 0.52 - 08/09/2021 [facility] 1.04 mg/dL 6:50 AM CDT Calcium 9.0 8.5 - 10.1 08/09/2021 [facility] mg/dL 6:50 AM CDT Glucose 101 (H) 70 - 99 08/09/2021 [facility] mg/dL 6:50 AM CDT GFR Estimate >90 >60 08/09/2021 [facility] mL/min/1.7 6:50 AM CDT 3m2 Comment: Effective February 06, 2021 eGF Rcr in adults is calculated using the 2020 CKD-EPI creatinine equation which includ es age and gender ([employer] et al., [place], DOI: 10.1056/UHCAuu0270985) Specimen Anatomical Collection Method / Collection Time Recei isak Time (Source) Location / Volume Laterality Blood STRUCTURE OF LEFT Venipuncture / 08/09/2021 5:45 08/09 6:15 UPPER LIMB / Unknown AM CDT AM CDT Unknown La Nena Babb MD LAB - BLOOD ORDERABLES Performing Organization Address City/State/[facility] Phon [place] [phone] Care [address] [place] [address], Room [facility] [place] CRP inflammation (08/06/2021 6:00 AM CDT) Analysis Performed At Patho logist Time Signature CRP Inflammation 6.7 0.0 - 8.0 08/06/2021 UR LABORATOR Y mg/L 8:09 AM CDT Specimen Anatomical Collection Method Collection Time Receive d Time (Source) Location / / Volume Laterality Blood STRUCTURE OF LEFT VAD(CVC, PICC) / 08/06/2021 6:00 AM 08/06/2021 6:36 UPPER LIMB / Unknown CDT AM CDT Unknown La Nena Babb MD LAB - BLOOD ORDERABLES Performing Organization Address [facility] Phon [place] [phone] Care Lab [address] [place] [address], Room M309 (ABNORMAL) Basic metabolic panel (08/06/2021 6:00 AM CDT) Patholo gist Method Time Signature Sodium 140 133 - 144 08/06/2021 [facility] mmol/L 8:09 AM CDT Potassium 3.6 3.4 - 5.3 08/06/2021 [facility] mmol/L 8:09 AM CDT Chloride 106 94 - 109 08/06/2021 [facility] mmol/L 8:09 AM CDT Carbon Dioxide 29 20 - 32 08/06/2021 [facility] (CO2) mmol/L 8:09 AM CDT Anion Gap 5 3 - 14 08/06/2021 [facility] mmol/L 8:09 AM CDT Urea Nitrogen 6 (L) 7 - 30 08/06/2021 [facility] mg/dL 8:09 AM CDT Creatinine 0.39 (L) 0.52 - 08/06/2021 [facility] 1.04 mg/dL 8:09 AM CDT Calcium 8.8 8.5 - 10.1 08/06/2021 [facility] mg/dL 8:09 AM CDT Glucose 133 (H) 70 - 99 08/06/2021 [facility] mg/dL 8:09 AM CDT GFR Estimate >90 >60 08/06/2021 [facility] mL/min/1.7 8:09 AM CDT 3m2 Comment: Effective February 06, 2021 eGF Rcr in adults is calculated using the 2020 CKD-EPI creatinine equation which includ es age and gender (Paul et al., NE, DOI: 10.1056/IIFIbj0498625) Specimen Anatomical Collection Method Collection Time Receive d Time (Source) Location / / Volume Laterality Blood STRUCTURE OF LEFT VAD(CVC, PICC) / 08/06/2021 6:00 AM 08/06/2021 6:36 UPPER LIMB / Unknown CDT AM CDT Unknown La Nena Babb MD LAB - BLOOD ORDERABLES Performing Organization Address City/State/ZIP Code Ph[place] [address] Care Lab [address] [facility], Room M309 (ABNORMAL) CBC with platelets and differential (08/06/2021 5:58 AM CDT) [facility] gist Method Time Signature WBC Count 5.0 4.0 - 08/06/2021 [facility] 11.0 6:37 AM CDT 10e3/uL RBC Count 3.42 (L) 3.80 - 08/06/2021 [facility] 5.20 6:37 AM CDT 10e6/uL Hemoglobin 10.4 (L) 11.7 - 08/06/2021 [facility] 15.7 g/dL 6:37 AM CDT Hematocrit 31.4 (L) 35.0 - 08/06/2021 [facility] 47.0 % 6:37 AM CDT MCV 92 78 - 100 08/06/2021 [facility] fL 6:37 AM CDT MCH 30.4 26.5 - 08/06/2021 [facility] 33.0 pg 6:37 AM CDT MCHC 33.1 31.5 - 08/06/2021 [facility] 36.5 g/dL 6:37 AM CDT RDW 13.2 10.0 - 08/06/2021 [facility] 15.0 % 6:37 AM CDT Platelet Count 108 (L) 150 - 450 08/06/2021 [facility] 10e3/uL 6:37 AM CDT % Neutrophils 46 % 08/06/2021 [facility] 6:37 AM CDT % Lymphocytes 41 % 08/06/2021 [facility] 6:37 AM CDT % Monocytes 7 % 08/06/2021 [facility] 6:37 AM CDT % Eosinophils 6 % 08/06/2021 [facility] 6:37 AM CDT % Basophils 0 % 08/06/2021 [facility] 6:37 AM CDT % Immature 0 % 08/06/2021 [facility] Granulocytes 6:37 AM CDT NRBCs per 100 0 <1 /100 08/06/2021 [facility] WBC 6:37 AM CDT Absolute 2.3 1.6 - 8.3 08/06/2021 [facility] Neutrophils 10e3/uL 6:37 AM CDT Absolute 2.1 0.8 - 5.3 08/06/2021 [facility] Lymphocytes 10e3/uL 6:37 AM CDT Absolute 0.4 0.0 - 1.3 08/06/2021 [facility] Monocytes 10e3/uL 6:37 AM CDT Absolute 0.3 0.0 - 0.7 08/06/2021 [facility] Eosinophils 10e3/uL 6:37 AM CDT Absolute 0.0 0.0 - 0.2 08/06/2021 [facility] Basophils 10e3/uL 6:37 AM CDT Absolute 0.0 <=0.4 08/06/2021 [facility] Immature 10e3/uL 6:37 AM CDT Granulocytes Absolute NRBCs 0.0 10e3/uL 08/06/2021 [facility] 6:37 AM CDT Specimen Anatomical Collection Method / Collection Time Recei isak Time (Source) Location / Volume Laterality Blood BLOOD SPECIMEN / Venipuncture / 08/06/2021 5:58 2021 6:35 Unknown Unknown AM CDT AM CDT La Nena Babb MD LAB - BLOOD ORDERABLES Performing Organization Address City/State/ZIP Code Phon e Number [facility] LAB[facility]AT[facility] [place] [address] Care Lab [address] [facility], Room M309 (ABNORMAL) Basic metabolic panel (08/02/2021 6:13 AM CDT) [facility] Method Time Signature Sodium 142 133 - 144 08/02/2021 [facility] mmol/L 6:51 AM CDT Potassium 3.7 3.4 - 5.3 08/02/2021 [facility] mmol/L 6:51 AM CDT Chloride 109 94 - 109 08/02/2021 [facility] mmol/L 6:51 AM CDT Carbon Dioxide 29 20 - 32 08/02/2021 [facility] (CO2) mmol/L 6:51 AM CDT Anion Gap 4 3 - 14 08/02/2021 [facility] mmol/L 6:51 AM CDT Urea Nitrogen 6 (L) 7 - 30 08/02/2021 [facility] mg/dL 6:51 AM CDT Creatinine 0.47 (L) 0.52 - 08/02/2021 [facility] 1.04 mg/dL 6:51 AM CDT Calcium 8.5 8.5 - 10.1 08/02/2021 [facility] mg/dL 6:51 AM CDT Glucose 104 (H) 70 - 99 08/02/2021 [facility] mg/dL 6:51 AM CDT GFR Estimate >90 >60 08/02/2021 [facility] mL/min/1.7 6:51 AM CDT 3m2 Comment: Effective February 06, 2021 eGF Rcr in adults is calculated using the 2020 CKD-EPI creatinine equation which includ es age and gender (Paul et al., NEJM, DOI: 10.1056/[id number]) Specimen Anatomical Collection Method Collection Time Receive d Time (Source) Location / / Volume Laterality Blood STRUCTURE OF LEFT VAD(CVC, PICC) / 08/02/2021 6:13 AM 08/02/2021 6:24 UPPER LIMB / Unknown CDT AM CDT Unknown La Nena Babb MD LAB - BLOOD ORDERABLES Performing Organization Address City/State/ZIP Code Phon e Number UR LABORATORY [facility] [place] [address] Care Lab [address] [facility], Room M309 (ABNORMAL) CBC with platelets and differential (07/30/2021 5:53 AM CDT) [facility] Method Time Signature WBC Count 6.8 4.0 - 07/30/2021 [facility] 11.0 7:13 AM CDT 10e3/uL RBC Count 3.63 (L) 3.80 - 07/30/2021 [facility] 5.20 7:13 AM CDT 10e6/uL Hemoglobin 10.9 (L) 11.7 - 07/30/2021 [facility] 15.7 g/dL 7:13 AM CDT Hematocrit 34.0 (L) 35.0 - 07/30/2021 [facility] 47.0 % 7:13 AM CDT MCV 94 78 - 100 07/30/2021 [facility] fL 7:13 AM CDT MCH 30.0 26.5 - 07/30/2021 [facility] 33.0 pg 7:13 AM CDT MCHC 32.1 31.5 - 07/30/2021 [facility] 36.5 g/dL 7:13 AM CDT RDW 13.2 10.0 - 07/30/2021 [facility] 15.0 % 7:13 AM CDT Platelet Count 140 (L) 150 - 450 07/30/2021 [facility] 10e3/uL 7:13 AM CDT % Neutrophils 49 % 07/30/2021 [facility] 7:13 AM CDT % Lymphocytes 39 % 07/30/2021 [facility] 7:13 AM CDT % Monocytes 7 % 07/30/2021 [facility] 7:13 AM CDT % Eosinophils 5 % 07/30/2021 [facility] 7:13 AM CDT % Basophils 0 % 07/30/2021 [facility] 7:13 AM CDT % Immature 0 % 07/30/2021 [facility] Granulocytes 7:13 AM CDT NRBCs per 100 0 <1 /100 07/30/2021 [facility] WBC 7:13 AM CDT Absolute 3.4 1.6 - 8.3 07/30/2021 [facility] Neutrophils 10e3/uL 7:13 AM CDT Absolute 2.7 0.8 - 5.3 07/30/2021 [facility] Lymphocytes 10e3/uL 7:13 AM CDT Absolute 0.5 0.0 - 1.3 07/30/2021 [facility] Monocytes 10e3/uL 7:13 AM CDT Absolute 0.3 0.0 - 0.7 07/30/2021 [facility] Eosinophils 10e3/uL 7:13 AM CDT Absolute 0.0 0.0 - 0.2 07/30/2021 [facility] Basophils 10e3/uL 7:13 AM CDT Absolute 0.0 <=0.4 07/30/2021 [facility] Immature 10e3/uL 7:13 AM CDT Granulocytes Absolute NRBCs 0.0 10e3/uL 07/30/2021 [facility] 7:13 AM CDT Specimen Anatomical Collection Method / Collection Time Recei isak Time (Source) Location / Volume Laterality Blood STRUCTURE OF RIGHT Venipuncture / 07/30/2021 5:53 07/18 7:01 UPPER LIMB / Unknown AM CDT AM CDT Unknown La Nena Babb MD LAB - BLOOD ORDERABLES Performing Organization Address City/State/ZIP Code [place] [phone] [place] [address], Room M309 (ABNORMAL) CRP inflammation (07/30/2021 5:53 AM CDT) [facility] gist Method Time Signature CRP Inflammation 9.1 (H) 0.0 - 8.0 07/30/2021 UR LABORATOR Y mg/L 7:47 AM CDT Specimen Anatomical Collection Method / Collection Time Recei isak Time (Source) Location / Volume Laterality Blood STRUCTURE OF RIGHT Venipuncture / 07/30/2021 5:53 07/18 7:01 UPPER LIMB / Unknown AM CDT AM CDT Unknown La Nena Babb MD LAB - BLOOD ORDERABLES Performing Organization Address City/State/ZIP Code Ph[place] [phone] [place] [address], Room M309 (ABNORMAL) Basic metabolic panel (07/30/2021 5:53 AM CDT) Analysis Performed At Patho logist Time Signature Sodium 140 133 - 144 07/30/2021 [facility] mmol/L 7:47 AM CDT Potassium 3.9 3.4 - 5.3 07/30/2021 [facility] mmol/L 7:47 AM CDT Chloride 107 94 - 109 07/30/2021 [facility] mmol/L 7:47 AM CDT Carbon Dioxide 28 20 - 32 07/30/2021 [facility] (CO2) mmol/L 7:47 AM CDT Anion Gap 5 3 - 14 07/30/2021 [facility] mmol/L 7:47 AM CDT Urea Nitrogen 7 7 - 30 07/30/2021 [facility] mg/dL 7:47 AM CDT Creatinine 0.55 0.52 - 07/30/2021 [facility] 1.04 mg/dL 7:47 AM CDT Calcium 9.1 8.5 - 10.1 07/30/2021 [facility] mg/dL 7:47 AM CDT Glucose 109 (H) 70 - 99 07/30/2021 [facility] mg/dL 7:47 AM CDT GFR Estimate >90 >60 07/30/2021 [facility] mL/min/1.7 7:47 AM CDT 3m2 Comment: Effective February 06, 2021 eGF Rcr in adults is calculated using the 2020 CKD-EPI creatinine equation which includ es age and gender (Paul et al., NEJ, DOI: 10.1056/[id number]) Specimen Anatomical Collection Method / Collection Time Recei isak Time (Source) Location / Volume Laterality Blood STRUCTURE OF RIGHT Venipuncture / 07/30/2021 5:53 /04/2021 7:01 UPPER LIMB / Unknown AM CDT AM CDT Unknown La Nena Babb MD LAB - BLOOD ORDERABLES Performing Organization Address City/State/ZIP Code Phon [place] [phone] Care Lab [address] [facility], Room M309 (ABNORMAL) Basic metabolic panel (07/26/2021 8:05 AM CDT) Analysis Performed At Patho logist Time Signature Sodium 140 133 - 144 07/26/2021 [facility] mmol/L 8:36 AM CDT Potassium 3.9 3.4 - 5.3 07/26/2021 [facility] mmol/L 8:36 AM CDT Chloride 108 94 - 109 07/26/2021 [facility] mmol/L 8:36 AM CDT Carbon Dioxide 26 20 - 32 07/26/2021 [facility] (CO2) mmol/L 8:36 AM CDT Anion Gap 6 3 - 14 07/26/2021 [facility] mmol/L 8:36 AM CDT Urea Nitrogen 8 7 - 30 07/26/2021 [facility] mg/dL 8:36 AM CDT Creatinine 0.52 0.52 - 07/26/2021 [facility] 1.04 mg/dL 8:36 AM CDT Calcium 9.0 8.5 - 10.1 07/26/2021 [facility] mg/dL 8:36 AM CDT Glucose 108 (H) 70 - 99 07/26/2021 [facility] mg/dL 8:36 AM CDT GFR Estimate >90 >60 07/26/2021 [facility] mL/min/1.7 8:36 AM CDT 3m2 Comment: Effective February 06, 2021 eGF Rcr in adults is calculated using the 2020 CKD-EPI creatinine equation which includ es age and gender (Paul et al., NEJM, DOI: 10.1056/JBZTje0061674) Specimen Anatomical Collection Method Collection Time Receive d Time (Source) Location / / Volume Laterality Blood CATHETER / Unknown VAD(CVC, PICC) / 07/26/2021 8:05 AM 07/26/2021 8:14 Unknown CDT AM CDT La Nena Babb MD LAB - BLOOD ORDERABLES Performing Organization Address City/State/ZIP Code Phon e Number UR LABORATORY [facility] [place] [address] Care Lab [address] [facility], Room M309 Extra Purple Top Tube (07/26/2021 8:04 AM CDT) P athologist Signature Hold Specimen JIC 07/26/2021 [facility] 10:05 AM CDT Specimen Anatomical Collection Method / Collection Time Recei isak Time (Source) Location / Volume Laterality Blood BLOOD SPECIMEN / Venipuncture / 07/26/2021 8:04 2021 8:52 Unknown Unknown AM CDT AM CDT La Nena Babb MD LAB - BLOOD ORDERABLES Performing Organization Address City/State/ZIP Code Ph[place] [address] Care Lab [address] [place] [address], Room M309 Extra Purple Top Tube (07/25/2021 5:51 AM CDT) P athologist Signature Hold Specimen JIC 07/25/2021 [facility] 7:48 AM CDT Specimen Anatomical Collection Method Collection Time Receive d Time (Source) Location / / Volume Laterality Blood VENOUS LINE / VAD(CVC, PICC) / 07/25/2021 5:51 AM /0 09/2021 6:44 Unknown Unknown CDT AM CDT La Nena Babb MD LAB - BLOOD ORDERABLES Performing Organization Address City/[facility]/ZIP Code Ph[place] [address] Care [address] [place] [address], Room M309 TSH with free T4 reflex (07/25/2021 5:51 AM CDT) athologist Signature TSH 0.76 0.40 - 4.00 07/25/2021 [facility] mU/L 7:11 AM CDT Specimen Anatomical Collection Method Collection Time Receive d Time (Source) Location / / Volume Laterality Blood VENOUS LINE / VAD(CVC, PICC) / 07/25/2021 5:51 AM /0 09/2021 6:38 Unknown Unknown CDT AM CDT La Nena Babb MD LAB - BLOOD ORDERABLES Performing Organization Address City/State/ZIP Code [place] [address] Care Lab [address] [place] [address], Room M309 documented in this encounter Visit Diagnoses Diagnosis Osteomyelitis of right ankle, unspecifie d type (H) - Primary Alcohol use disorder, severe, dependence (H) Anxiety Anxiety state, unspecified Steroid-induced acne Other acne Non-healing surgical wound, subsequent e ncounter Chronic hepatitis C without hepatic coma (H) Tooth pain Unspecified disorder of the teeth and giraldo pporting structures Acute pain of left knee Fungal rash of trunk Physical deconditioning Debility, unspecified documented in this encounter Admitting Diagnoses Diagnosis Physical deconditioning Debility, unspecified documented in this encounter Administered Medications Inactive Administered Medications - up to 3 most recent administrations Medication Order MAR Action Action Date Dose Rate Site - Skin Test Reading - Read 08/16/2021 5:21 PM CDT EVERY 21 DAYS, 2 doses, First dose on Fri07/26/21 at 0900, Last dose on Fri08/16/21 at 0900, For tuberculosis diagnostic: Adjust reading time if needed based on time of administration. Reading must occur between 48-72 hours after administration. Read 07/26/2021 8:24 AM CDT acetaminophen (TYLENOL) tablet 975 mg Given 08/22/2021 2:00 PM CDT 975 mg 975 mg, Oral, EVERY 8 HOURS PRN, mild pain, Starting on Fri07/23/21 at 1616, Maximum acetaminophen dose from all sources = 75 mg/kg/day not to exceed 4 grams/day. Given 08/22/2021 4:54 AM CDT 975 mg Given 08/21/2021 5:37 PM CDT 975 mg alum & mag hydroxide-simethicone (MAALOX) Given 08/22/2021 8:34 AM CDT 30 mLs suspension 30 mL 30 mL, Oral, EVERY 4 HOURS PRN, indigestion, Starting on 08/18/21 at 1055, Shake well. Given 08/20/2021 8:13 AM CDT 30 mLs Given 08/18/2021 11:12 AM CDT 30 mLs aspirin EC tablet 162 mg Given 08/22/2021 8:30 AM CDT 162 mg 162 mg, Oral, DAILY, First dose on Fri07/24/21 at 0800, Indications: dvt ppx, DO NOT CRUSH. Given 08/21/2021 8:07 AM CDT 162 mg Given 08/20/2021 8:25 AM CDT 162 mg buprenorphine (SUBUTEX) sublingual table t 8 mg Given 08/22/2021 1:58 PM CDT 8 mg 8 mg, Sublingual, 3 TIMES DAILY, First dose on Fri07/23/21 at 2200, Indications: Opioid Dependence, Give SUBLINGUAL. Place under the tongue and leave until completely dissolved. Patient should not swallow or chew tablet. Patient should not eat/drink until tablet is completely dissolved. Given 08/22/2021 5:13 AM CDT 8 mg Given 08/21/2021 9:13 PM CDT 8 mg ceFAZolin (ANCEF) intermittent New Bag 08/21/2021 4:59 PM CDT 2 g 200 mL/hr infusion 2 g in 100 mL dextrose PRE-MIX FR[place], 2 g, Intravenous, EVERY 8 HOURS, First dose on Fri07/23/21 at 1700, For 88 doses, Indications: Bacteremia, Osteomyelitis New Bag 08/21/2021 8:08 AM CDT 2 g 200 mL/hr New Bag 08/21/2021 1:04 AM CDT 2 g 200 mL/hr clindamycin (CLEOCIN T) 1 % lotion Given 08/22/2021 8:34 AM CDT Topical, 2 TIMES DAILY, First dose on Fri08/17/21 at 1200, Apply to the neck, base of the jaw and upper chest Given 08/21/2021 8:21 PM CDT Given 08/21/2021 8:08 AM CDT clobetasol (TEMOVATE) 0.05 % ointment Given 08/16/2021 8:14 PM CDT Topical, 2 TIMES DAILY, First dose on Fri07/23/21 at 2100, Apply to affected area Given 08/16/2021 12:14 PM CDT Given 08/15/2021 10:04 PM CDT diclofenac (VOLTAREN) 1 % topical gel 2 g Given 08/21/2021 8:08 AM CDT 2 g 2 g, Topical, 2 TIMES DAILY, First dose on Fri08/18/21 at 1130, For 4 days, Apply to the left knee Indication: pain Send dosing card with product. Given 08/20/2021 8:17 AM CDT 2 g Given 08/19/2021 9:21 PM CDT 2 g diphenhydrAMINE (BENADRYL) capsule 25 mg Given 08/05/2021 5:20 PM CDT 25 mg 25 mg, Oral, EVERY 6 HOURS PRN, itching, Starting on Fri07/23/21 at 1616, Indications: Allergic Skin Reaction doxycycline hyclate (VIBRAMYCIN) capsule 100 Given 07/2021 8:29 AM CDT 100 mg mg Routine, 100 mg, Oral, EVERY 12 HOURS SCHEDULED, First dose on Fri08/17/21 at 1100, For 14 days, Administer at least 2 hours before or after aluminum, calcium, iron, zinc or magnesium containing products., Indications: infected steroid acne Given 08/21/2021 9:13 PM CDT 100 mg Given 08/21/2021 8:05 AM CDT 100 mg famotidine (PEPCID) tablet 20 mg Given 08/21/2021 8:08 AM CDT 20 mg 20 mg, Oral, 2 TIMES DAILY, First dose on Fri07/23/21 at 2100, Indications: Gastroesophageal Reflux Disease Given 08/20/2021 8:30 PM CDT 20 mg Given 08/20/2021 8:25 AM CDT 20 mg folic acid (FOLVITE) tablet 1 mg Given 08/22/2021 8:29 AM CDT 1 mg 1 mg, Oral, DAILY, First dose on Fri07/24/21 at 0800, Indications: Folate Deficiency Anemia Given 08/21/2021 8:08 AM CDT 1 mg Given 08/20/2021 8:25 AM CDT 1 mg gabapentin (NEURONTIN) capsule 300 mg Given 08/21/2021 9:13 PM CDT 300 mg 300 mg, Oral, AT BEDTIME, First dose on Fri07/23/21 at 2200, Indications: Neuropathic Pain Given 08/20/2021 9:29 PM CDT 300 mg Given 08/19/2021 9:15 PM CDT 300 mg hydrOXYzine (ATARAX) tablet 25 mg Given 08/22/2021 9:26 AM CDT 25 mg 25 mg, Oral, EVERY 6 HOURS PRN, other, anxiety, adjuvant pain, Starting on Fri07/23/21 at 1616 Given 08/20/2021 3:07 AM CDT 25 mg Given 08/19/2021 4:03 PM CDT 25 mg hydrOXYzine (ATARAX) tablet 25 mg Given 08/21/2021 9:13 PM CDT 25 mg 25 mg, Oral, AT BEDTIME, First dose on Fri07/23/21 at 2200, Indications: Anxiety, Pruritus Given 08/20/2021 9:29 PM CDT 25 mg Given 08/19/2021 9:15 PM CDT 25 mg ibuprofen (ADVIL/MOTRIN) tablet 200 mg Given 08/22/2021 4:54 AM CDT 200 mg 200 mg, Oral, EVERY 6 HOURS PRN, moderate pain (4-6), Dental pain, Starting on Fri08/20/21 at 1012, For 5 doses, Give with food. Given 08/21/2021 10:10 PM CDT 200 mg Given 08/21/2021 4:02 PM CDT 200 mg lactulose (CEPHULAC) Packet 20 g Given 07/28/2021 8:46 AM CDT 20 g 20 g, Oral, 2 TIMES DAILY, First dose on Fri07/23/21 at 2100, Indications: Constipation, Call MD if has > 4 stools a day or < 3 to adjust lactulose dose Given 07/27/2021 8:31 PM CDT 20 g Given 07/27/2021 8:54 AM CDT 20 g lactulose (CEPHULAC) Packet 20 g Given 08/22/2021 8:31 AM CDT 20 g 20 g, Oral, DAILY, First dose (after last modification) on Fri07/29/21 at 0800, Indications: Constipation, Call MD if has > 4 stools a day or < 3 to adjust lactulose dose Given 08/21/2021 8:06 AM CDT 20 g Given 08/20/2021 8:24 AM CDT 20 g levothyroxine (SYNTHROID/LEVOTHROID) tablet Given 07/2021 8:29 AM CDT 125 mcg 125 mcg 125 mcg, Oral, EVERY MORNING, First dose on Fri07/24/21 at 0900, Indications: Hypothyroidism, Separate oral administration of iron- or calcium-containing products and levothyroxine by at least 4 hours. Given 08/21/2021 8:07 AM CDT 125 mcg Given 08/20/2021 8:25 AM CDT 125 mcg lidocaine (XYLOCAINE) 4 % solution Given by Other 07/27/2021 9:50 AM CDT Topical, EVERY Friday AND FRIDAY MORNING, First dose on Fri07/25/21 at 0800, With right ankle wound vac changes Given 07/25/2021 11:27 AM CDT melatonin tablet 3 mg 3 mg, Oral, AT BEDTIME PRN, sleep, Starting on 07/19 at 1339 melatonin tablet 5 mg Given 08/08/2021 1:30 AM CDT 5 mg 5 mg, Oral, AT BEDTIME PRN, sleep, Starting on Fri07/25/21 at 0119 Given 07/25/2021 1:27 AM CDT 5 mg methocarbamol (ROBAXIN) tablet 750 mg Given 08/22/2021 1:52 PM CDT 750 mg 750 mg, Oral, 3 TIMES DAILY, First dose on Fri07/23/21 at 2000, Indications: Musculoskeletal Pain Given 08/22/2021 8:29 AM CDT 750 mg Given 08/21/2021 8:21 PM CDT 750 mg miconazole (MICATIN) 2 % powder Given 08/21/2021 8:08 AM CDT Topical, 2 TIMES DAILY, First dose on Fri08/11/21 at 2100, Apply to yeas rash groin and armpits and under the breasts Indication: rash Given 08/20/2021 8:26 AM CDT Given 08/19/2021 9:15 PM CDT miconazole (MICATIN) 2 % powder Given 08/22/2021 9:44 AM CDT Topical, 2 TIMES DAILY, First dose (after last modification) on Fri08/21/21 at 2100, Apply to yeas rash groin and armpits and under the breasts Indication: rash Given 08/21/2021 8:21 PM CDT mineral oil-hydrophilic petrolatum (AQUA PHOR) Given 08/22/2021 9:45 AM CDT Topical, 2 TIMES DAILY, First dose on Fri08/15/21 at 2100, Apply to the neck and chest Indication: rash Given 08/21/2021 8:22 PM CDT Given 08/20/2021 8:39 PM CDT naloxone (NARCAN) injection 0.2 mg 0.2 mg, Intravenous, EVERY 2 MIN PRN, op ioid reversal, Starting on Fri07/23/21 at 1626, Administer intravenous route when available and notify provider when administered. For unintended sedation or respiratory depression if all of the below criteria are met: ~ respiratory rate LES S than or EQUAL to 8. ~SaO2 less than 92% and or/end-tidal CO2 is greater than 50. ~ the patient is receiving an opioid, has unintended sedations assessed as RASS (-3), and is cur rently not on mechanical ventilation. RASS scale moderate (-3) is movement or eye opening to voice but no eye contact. Patient Monitoring Once the patient has demonstrated a response to the naloxone, continue to monitor respiratory rate, depth, oxygen saturation and end-tidal CO2 (if available) every 15 mi nutes x 2, then every 30 minutes x 2, then every 1 hour x 1 after each naloxone dose. Consider tr ansfer to ICU if patient respiratory parameters have not improved after 4 nalox one doses. naloxone (NARCAN) injection 0.2 mg 0.2 mg, Intramuscular, EVERY 2 MIN PRN, opioid reversal, Starting on Fri07/23/21 at 1626, Administer intramuscular if an int ravenous route is not available and notify provider when administered. For unintend ed sedation or respiratory depression if all of the below criteria are met: ~ respiratory rate LESS than or EQUAL to 8. ~SaO2 less than 92% and or/end-tidal CO2 is greater th an 50. ~ the patient is receiving an opioid, has unintended sedations assessed as RASS (-3), and is currently not on mechanical ventilation. RASS scale moderate (-3) is movement or eye opening to voice but no eye contact. Patient Monitoring Once the patient has demonstrated a response to the naloxone, continue to m onitor respiratory rate, depth, oxygen saturation and end-tidal CO2 (if availab le) every 15 minutes x 2, then every 30 minutes x 2, then every 1 hour x 1 after each naloxone dose. Consider transfer to ICU if patient respiratory parameters have not improved after 4 naloxone doses. naloxone (NARCAN) injection 0.4 mg 0.4 mg, Intravenous, EVERY 2 MIN PRN, op ioid reversal, Starting on Fri07/23/21 at 1626, Administer intravenous route when available and notify provider when administered. For unintended sedation or respiratory depression if all of the below criteria are met: ~ respiratory rate LES S than or EQUAL to 8. ~ SaO2 less than 92% and or/end-tidal CO2 is greater than 50. ~ the patient is receiving an opioid, has unintended sedation assessed as RASS (-4 ) or (-5) and patient is currently not on mechanical ventilation. RASS scale (-4) is deep sedation with no response to voice but movement or eye opening to physical stimulation. R ASS scale (-5) is unarousable. Patient Monitoring Once the patient has demonstrated a response to the naloxone, continue to monitor respiratory rate, depth, oxygen saturation and end-tidal CO2 (if available) every 15 mi nutes x 2, then every 30 minutes x 2, then every 1 hour x 1 after each naloxone dose. Consider tr ansfer to ICU if patient respiratory parameters have not improved after 4 nalox one doses. naloxone (NARCAN) injection 0.4 mg 0.4 mg, Intramuscular, EVERY 2 MIN PRN, opioid reversal, Starting on Fri07/23/21 at 1626, Administer intramuscular if an int ravenous route is not available and notify provider when administered. For unintend ed sedation or respiratory depression if all of the below criteria are met: ~ res piratory rate LESS than or EQUAL to 8. ~ SaO2 less than 92% and or/end-tidal CO2 is greater dorian n 50. ~ the patient is receiving an opioid, has unintended sedation assessed as RASS (-4) or (-5) and patient is currently not on mechanical ventilation. RA SS scale (-4) is deep sedation with no response to voice but movement or eye opening to physical stimulation. RASS scale (-5) is unarousa ble. Patient Monitoring Once the patient has demonstrated a response to the nalox one, continue to monitor respiratory rate, depth, oxygen saturation and end-tidal CO2 (if availab le) every 15 minutes x 2, then every 30 minutes x 2, then every 1 hour x 1 after each naloxone dose. Consider transfer to ICU if patient respiratory parameters have not improved after 4 naloxone doses. nicotine (NICODERM Patch/Med Applied 08/22/2021 8:31 AM 1 patch Other (see CQ) 14 MG/24HR 24 hr CDT comm ents) patch 1 patch 1 patch, Transdermal, EVERY 24 HOURS, Administer over 24 Hours, First dose on Fri07/24/21 at 0800, Indications: Nicotine Dependence, Reminder: Remove previous patch before applying new patch. Patch/Med Applied 08/21/2021 8:18 AM CDT 1 patch Right Arm Patch/Med Applied 08/20/2021 8:37 AM CDT 1 patch Left Arm nicotine Patch in Place First dose on Fri07/23/21 at 2200, Chart every shift, confirming that patch is still in place on patient (no barcode scan nee ded). See patch order for dose information. ondansetron (ZOFRAN ODT) ODT tab 4 mg Given 08/17/2021 10:07 AM CDT 4 mg 4 mg, Oral, EVERY 6 HOURS PRN, nausea, vomiting, Starting on Fri08/08/21 at 1113, With dry hands, peel back foil backing and gently remove tablet. Do not push oral disintegrating tablet through foil backing. Administer immediately on tongue and oral disintegrating tablet dissolves in seconds, then swallow with saliva. Liquid not required. oxyCODONE (ROXICODONE) tablet 5 mg Given 08/16/2021 7:34 PM CDT 5 mg 5 mg, Oral, EVERY 4 HOURS PRN, moderate to severe pain, Starting on Fri08/15/21 at 1901, For 6 doses Given 08/16/2021 1:15 PM CDT 5 mg Given 08/16/2021 8:42 AM CDT 5 mg oxyCODONE (ROXICODONE) tablet 5-10 mg Given 07/30/2021 4:07 PM CDT 10 mg 5-10 mg, Oral, EVERY 6 HOURS PRN, moderate to severe pain, Starting on Fri07/23/21 at 1616, For 7 days, Indications: Acute Pain, Chronic Pain Given 07/30/2021 8:43 AM CDT 10 mg Given 07/30/2021 2:39 AM CDT 10 mg senna-docusate (SENOKOT-S/PERICOLACE) Given 08/22/2021 8:29 AM C DT 2 tablets 8.6-50 MG per tablet 2 tablet 2 tablet, Oral, 2 TIMES DAILY, First dose on Fri07/23/21 at 2100, Indications: Constipation, Hold for loose stools. Given 08/18/2021 9:36 AM CDT 2 tablets Given 08/17/2021 8:31 PM CDT 2 tablets sodium chloride (PF) 0.9% PF flush 10-20 mL Given 08/06/2021 5:53 AM CDT 30 mLs 10-20 mL, Intracatheter, EVERY 1 MIN PRN, line flush, Starting on Fri07/24/21 at 0226, Flush catheter with 10 mL sodium chloride 0.9% to ensure patency or after IV medications/TPN to clear the catheter. Flush catheter with 20 mL sodium chloride 0.9% after blood draws or blood administration from the catheter. Given 08/03/2021 1:50 AM CDT 10 mLs Given 08/02/2021 6:05 AM CDT 30 mLs sodium chloride (PF) 0.9% PF flush 10-40 mL Given 08/07/2021 1:25 AM CDT 10 mLs 10-40 mL, Intracatheter, EVERY 7 DAYS, First dose on Fri07/24/21 at 0230, To lock each CVC - Valved (Tunneled and Non-Tunneled) dormant lumen(s). Max dose: 10 mL for each lumen Sodium chloride 0.9% 10 mL for each lumen to flush line and lock the lumen. Given 07/31/2021 2:19 AM CDT 10 mLs sodium chloride (PF) 0.9% PF flush 10-40 mL Given 08/08/2021 12:52 AM CDT 20 mLs 10-40 mL, Intracatheter, EVERY 1 HOUR PRN, other, to lock EACH CVC - Valved (Tunneled and Non-Tunneled) dormant lumen(s), Starting on Fri07/24/21 at 0226, Max dose: 10 mL for each lumen Sodium chloride 0.9% 10 mL for each lumen to flush line and lock the lumen. Given 07/28/2021 12:59 AM CDT 10 mLs Given 07/26/2021 8:04 AM CDT 20 mLs sodium chloride (PF) 0.9% PF flush 3 mL Given 08/21/2021 4:59 PM CDT 3 mLs 3 mL, Intracatheter, EVERY 8 HOURS, First dose on Fri08/11/21 at 0100, to lock peripheral IV dormant line Given 08/21/2021 8:06 AM CDT 3 mLs Given 08/21/2021 1:05 AM CDT 6 mLs sodium chloride (PF) 0.9% PF flush 3 mL Given 08/21/2021 9:11 AM CDT 3 mLs 3 mL, Intracatheter, EVERY 1 MIN PRN, line flush, other, to ensure patency or to lock dormant line, Starting on 08/11/21 at 0057 Given 08/18/2021 10:47 AM CDT 3 mLs Given 08/14/2021 12:14 PM CDT 3 mLs sodium chloride 0.9 % infusion New Bag 07/24/2021 4:39 PM CDT 500 mLs Maryam Rose: cabinet override, 1 dose, Starting on Fri07/24/21 at 1616, Until Fri07/24/21 at 1639 sodium chloride 0.9 % infusion New Bag 07/25/2021 4:30 PM CDT 500 mLs Sonja Sanchez: cabinet override, 1 dose, Starting on Fri07/25/21 at 1614, Until Fri07/25/21 at 1630 sodium chloride 0.9 % infusion New Bag 07/26/2021 4:33 PM CDT 500 mLs Sam Baez: cabinet override, 1 dose, Starting on Zoe 07/26/21 at 1603, Until Fri07/26/21 at 1633 sodium chloride 0.9 % infusion New Bag 07/28/2021 12:59 AM CDT 500 mLs Sonja Sanchez: cabinet override, 1 dose, Starting on 07/28/21 at 0048, Until 07/28/21 at 0059 sodium chloride 0.9 % infusion New Bag 07/29/2021 5:08 PM CDT 500 mLs Steve Galeano: cabinet override, 1 dose, Starting on 07/29/21 at 1647, Until 07/29/21 at 1708 sodium chloride 0.9 % infusion New Bag 07/30/2021 4:51 PM CDT 500 mLs Steve Galeano: cabinet override, 1 dose, Starting on 07/30/21 at 1632, Until 07/30/21 at 1651 sodium chloride 0.9 % infusion New Bag 08/02/2021 1:13 AM CDT 500 mLs Liza Lloyd: cabinet override, 1 dose, Starting on Zoe 08/02/21 at 0104, Until Zoe 08/02/21 at 0113 sodium chloride 0.9 % infusion New Bag 08/05/2021 5:21 PM CDT 500 mLs Maryam Rose: cabinet override, 1 dose, Starting on 08/05/21 at 1621, Until 08/05/21 at 1721 sodium chloride 0.9 % infusion New Bag 08/06/2021 4:44 PM CDT 500 mLs Sarkis Tyson: cabinet override, 1 dose, Starting on 08/06/21 at 1629, Until 08/06/21 at 1644 sodium chloride 0.9 % infusion New Bag 08/09/2021 1:19 AM CDT 500 mLs Jennifer Vaca: cabinet override, 1 dose, Starting on Zoe 08/09/21 at 0050, Until Zoe 08/09/21 at 0119 sodium chloride 0.9 % infusion New Bag 08/10/2021 8:32 AM CDT 500 mLs Vickie Erwin: cabinet override, 1 dose, Starting on Fri08/10/21 at 0815, Until Fri08/10/21 at 0832 sodium chloride 0.9 % infusion New Bag 08/10/2021 4:56 PM CDT 500 mLs Nano Malone: cabinet override, 1 dose, Starting on Fri08/10/21 at 1644, Until Fri08/10/21 at 1656 sodium chloride 0.9 % infusion New Bag 08/11/2021 4:47 PM CDT Nano Malone: cabinet override, 1 dose, Starting on 08/11/21 at 1616, Until 08/11/21 at 1647 sodium chloride 0.9 % infusion New Bag 08/12/2021 5:32 PM CDT Nano Malone: cabinet override, 1 dose, Starting on 08/12/21 at 1722, Until 08/12/21 at 1732 sodium chloride 0.9 % infusion New Bag 08/16/2021 1:54 AM CDT 500 mLs Liza Lloyd: cabinet override, 1 dose, Starting on Zoe 08/16/21 at 0136, Until Zoe 08/16/21 at 0154 sodium chloride 0.9 % infusion New Bag 08/19/2021 1:13 AM CDT 500 mLs Jennifer Vaca: cabinet override, 1 dose, Starting on 08/19/21 at 0048, Until 08/19/21 at 0113 sodium chloride 0.9 % infusion New Bag 08/20/2021 4:23 PM CDT 500 mLs Chilango Radames: cabinet override, 1 dose, Starting on Fri08/20/21 at 1611, Until Fri08/20/21 at 1623 thiamine (B-1) tablet 100 mg Given 08/22/2021 8:29 AM CDT 100 mg 100 mg, Oral, DAILY, First dose on Fri07/23/21 at 1630, Indications: alcohol use disorder Given 08/21/2021 8:06 AM CDT 100 mg Given 08/20/2021 8:24 AM CDT 100 mg triamcinolone (KENALOG) 0.1 % ointment Given 08/14/2021 9:46 PM CDT Topical, 2 TIMES DAILY, First dose on Fri07/23/21 at 2100, Apply to affected area Given 08/14/2021 12:16 PM CDT Given 08/13/2021 9:24 PM CDT venlafaxine (EFFEXOR XR) 24 hr capsule 3 00 mg Given 08/22/2021 8:29 AM CDT 300 mg 300 mg, Oral, DAILY, First dose on Fri07/24/21 at 0800, Indications: Generalized Anxiety Disorder, DO NOT CRUSH. Given 08/21/2021 8:05 AM CDT 300 mg Given 08/20/2021 8:25 AM CDT 300 mg Vitamin D3 (CHOLECALCIFEROL) tablet Given 08/22/2021 8:29 AM CDT 2,000 Units 2,000 Units 2,000 Units, Oral, DAILY, First dose on Fri07/23/21 at 1630, Indications: Vitamin D Deficiency, Note: 25 mcg = 1000 units Given 08/21/2021 8:06 AM CDT 2,000 Units Given 08/20/2021 8:24 AM CDT 2,000 Units documented in this encounter Active and Recently Administered Medications Times are shown in CDT. Scheduled Medication Order 08/20/2021 08/21/2021 08/22/2021 aspirin EC tablet 162 mg 0825 (Given - Provider: Roxy Bautista, RN) 0807 (Given - Provider: Roxy Bautista RN) 0830 (Given - Provider: Maryam Rose RN) 162 mg, Oral, DAILY, First dose on Fri at 0800, Indications: dvt ppx, DO NOT CRUSH. buprenorphine (SUBUTEX) sublingual tablet 8 mg 0627 (G iven - Provider: Frederick Jack RN)1425 (Given - Provider: Roxy Bautista RN)212 (Given - Provider: Radames Kee RN) 0512 (Given - Provider: Liza butts RN)1435 (Given - Provider: Roxy Bautista RN)2112 (Given - Provider: Radames Kee RN) 0513 (Given - Provider: Liza butts RN)1358 (Given - Provider: Maryam Rose RN) 8 mg, Sublingual, 3 TIMES DAILY, First d ose on Fri07/23/21 at 2200, Indications: Opioid Dependence, Give SUBLINGUAL. Place under the tongue and leave until completely dissolved. Patient should not swallo w or chew tablet. Patient should not eat /drink until tablet is completely dissolved. ceFAZolin (ANCEF) intermittent infusion 2 g in 100 mL dextrose PRE-MIX (COMPLETED) 0054 (New Bag - Provider: Frederick Jack RN)0814 (New Bag - Provider: Roxy Bautista RN)1623 (New Bag - Provider: Radames Kee RN) 0104 (New Bag - Provider: Liza medel RN)0808 (New Bag - Provider: Roxy Bautista RN)1659 (New Bag - Provider: Radames Kee RN) [place], 2 g, Intravenous, EVERY 8 HOURS, F irst dose on Fri07/23/21 at 1700, For 88 doses, Indications: Bacteremia, Osteomyelitis clindamycin (CLEOCIN T) 1 % lotion 0817 (Given - Provi nia: Roxy Queen RN)2030 (Given - Provider: Radames Kee RN) 08 (Given - Provider: Roxy Bautista RN)2020 (Given - Provider: Radames Kee RN) 0834 (Given - Provider: Maryam Rose RN) Topical, 2 TIMES DAILY, First dose on 08/17/21 at 1200, Apply to the neck, base of the jaw and upper chest diclofenac (VOLTAREN) 1 % topical gel 2 g 0817 (Given - Provider: Roxy Bautista RN)2030 (Not Given - Provider: Radames Kee RN - Reason: Patient/family refused) 08 (Given - Provider: Roxy Izaguirre RN)2021 (Not Given - Provider: Radames Kee RN - Reason: Patient/family refused) 2 g, Topical, 2 TIMES DAILY, First dose on Fri08/18/21 at 1130, For 4 days, Apply to the left knee Indication: pain Send dosing card with product. doxycycline hyclate (VIBRAMYCIN) capsule 100 mg 0824 ( Given - Provider: Roxy Bautista RN)2029 (Given - Provider: Radames Kee RN) 804 (Given - Provider: Roxy Bautista RN)2112 (Given - Provider: Radames Kee RN) 0829 (Given - Provider: Jay La) Routine, 100 mg, Oral, EVERY 12 HOURS SC HEDULED, First dose on Fri08/17/21 at 1100, For 14 days, Administer at least 2 hours before or after aluminum, calcium, iron, zinc or magnesium containing products., Indications: infected steroid acne famotidine (PEPCID) tablet 20 mg (CANCELED) 0825 (Give n - Provider: Roxy Bautista RN)2029 (Given - Provider: Radames Kee RN) 08 (Given - Provider: Roxy Bautista RN) 20 mg, Oral, 2 TIMES DAILY, First dose o n Fri07/23/21 at 2100, Indications: Gastroesophageal Reflux Disease folic acid (FOLVITE) tablet 1 mg 0825 (Given - Provide r: Roxy Queen RN) 08 (Given - Provider: Roxy Bautista RN) 0829 (Given - Provider: Maryam Rose RN) 1 mg, Oral, DAILY, First dose on 07/24 at 0800, Indications: Folate Deficiency Anemia gabapentin (NEURONTIN) capsule 300 mg 2128 (Given - Pr ovider: Radames Kee RN) 2112 (Given - Provider: Radames Kee RN) 300 mg, Oral, AT BEDTIME, First dose on Fri07/23/21 at 2200, Indications: Neuropathic Pain hydrOXYzine (ATARAX) tablet 25 mg 2128 (Given - Provider: Alicia Kee RN) 2112 (Given - Provider: Radames Kee RN) 25 mg, Oral, AT BEDTIME, First dose on 07/23/21 at 2200, Indications: Anxiety, Pruritus lactulose (CEPHULAC) Packet 20 g 08 (Given - Provide r: Roxy Queen RN) 08 (Given - Provider: Roxy Bautista RN) 08 (Given - Provider: Maryam Rose RN) 20 g, Oral, DAILY, First dose (after las t modification) on Fri07/29/21 at 0800, Indications: Constipation, Call MD if has > 4 stools a day or < 3 to adjust lactulose dose levothyroxine (SYNTHROID/LEVOTHROID) tablet 125 mcg 08 (Given - Provider: Roxy Bautista RN) 08 (Given - Provider: Roxy Izaguirre RN) 08 (Given - Provider: Jay La) 125 mcg, Oral, EVERY MORNING, First dose on Fri07/24/21 at 0900, Indications: Hypothyroidism, Separate oral administration of iron- or calcium-containing products and levothyroxine by at least 4 hours. lidocaine (XYLOCAINE) 4 % solution 1107 (Not Given - P rovider: Roxy Bautista RN - Reason: Other - Comment: pts wound vac isn't being changed today. WOC not here.) 0940 (Not Given - Provider: Maryam Rose RN - Reason: Other - Comment: WOCN nurse not chnage WOUND Vac went for an appointment) Topical, EVERY Friday AND AY MORNING, First dose on Fri07/25/21 at 0800, With right ankle wound vac changes methocarbamol (ROBAXIN) tablet 750 mg 0823 (Given - Pr ovider: Roxy Queen RN)1425 (Given - Provider: Roxy Bautista RN)2030 (Given - Provider: Radames Kee RN) 0808 (Given - Provider: Roxy Izaguirre RN)1435 (Given - Provider: Roxy Bautista RN)2020 (Given - Provider: Radames Kee RN) 0829 (Given - Provider: Jay La)1352 (Given - Provider: Demetria Monahan RN) 750 mg, Oral, 3 TIMES DAILY, First dose on Fri07/23/21 at 2000, Indications: Musculoskeletal Pain miconazole (MICATIN) 2 % powder (CANCELED) 0826 (Given - Provider: Roxy Bautista RN)2030 (Not Given - Provider: Radames Kee RN - Reason: Patient/family refused) 08 (Given - Provider: Roxy Bautista RN) Topical, 2 TIMES DAILY, First dose on 08/11/21 at 2100, Apply to yeas rash groin and armpits and under the breasts Indication: rash miconazole (MICATIN) 2 % powder 2020 (Given - Pr ovider: Radames Kee RN) 0944 (Given - Provider: Maryam Rose RN - Comment: Pt applied it to her) Topical, 2 TIMES DAILY, First dose (afte r last modification) on Fri08/21/21 at 2100, Apply to yeas rash groin and armpits and under the breasts Indication: rash mineral oil-hydrophilic petrolatum (AQUAPHOR) 0825 (Gi alex - Provider: Roxy Bautista RN)2038 (Given - Provider: Radames Kee RN) 0809 (Not Given - Provider: Roxy Bautista RN - Reason: Patient/family refused)2021 (Given - Provider: Radames Kee RN) 0945 (Given - Provider: Maryam Polido, R N - Comment: Pt applied it by herself) Topical, 2 TIMES DAILY, First dose on 08/15/21 at 2100, Apply to the neck and chest Indication: rash nicotine (NICODERM CQ) 14 MG/24HR 24 hr patch 1 patch 0821 (Patch/Med Removed - Provider: Roxy Bautista RN)0837 (Patch/Med Applied - Provider: Roxy Bautista RN) 0807 (Patch/Med Removed - Provider: Tracie Bautista RN)0818 (Patch/Med Applied - Provider: Roxy Bautista RN) 0830 (Patch/Med Removed - Provider: Dulce Maria Rose RN)0831 (Patch/Med Applied - Provider: Maryam Rose RN) 1 patch, Transdermal, EVERY 24 HOURS, Ad conference services coordinator over 24 Hours, First dose on Fri07/24/21 at 0800, Indications: Nicotine Dependence, Reminder: Remove previous patch before applying new patch. nicotine Patch in Place 0619 (Patch in Place - Provi nia: Frederick Jack RN)1425 (Patch in Place - Provider: Roxy Bautista RN)2130 (Patch Free Period - Provider: Radames Kee RN) 0723 (Patch in Place - Provider: Bethanie Bautista RN)1435 (Patch in Place - Provider: Roxy Bautista RN)2210 (Patch in Place - Provider: Radames Kee RN) 0939 (Patch in Place - Provider: Maryam Rose RN - Comment: NOC forgot to document.)1555 (Patch in Place - Provider: Maryam Rose RN) First dose on Fri07/23/21 at 2200, Chart every shift, confirming that patch is still in place on patient (no barcode scan needed). See patch order for dose information. senna-docusate (SENOKOT-S/PERICOLACE) 8.6-50 MG per ta blet 2 tablet 0824 (Not Given - Provider: Roxy Bautista RN - Reason: Patient/family refused)2030 (Not Given - Provider: Radames Kee RN - Reason: Patient/family refused) 0807 (Not Given - Provider: Roxy Perez RN - Reason: Patient/family refused)2020 (Not Given - Provider: Radames Kee RN - Reason: Patient/family refused) 08 (Given - Provider: Jay La) 2 tablet, Oral, 2 TIMES DAILY, First dos e on Fri07/23/21 at 2100, Indications: Constipation, Hold for loose stools. sodium chloride (PF) 0.9% PF flush 3 mL (CANCELED) 005 4 (Given - Provider: Frederick Jack RN)0813 (Given - Provider: Roxy Bautista, GENARO)1623 (Given - Provider: Radames Kee RN) 0105 (Given - Provider: Liza Lloyd RN)08 (Given - Provider: Roxy Bautista RN)165 (Given - Provider: Radames Kee RN) 022 (Not Given - Provider: Liza sarah RN - Reason: Loss of IV access) 3 mL, Intracatheter, EVERY 8 HOURS, Firs t dose on Fri08/11/21 at 0100, to lock peripheral IV dormant line thiamine (B-1) tablet 100 mg 0824 (Given - Provider: Ameya Bautista RN) 08 (Given - Provider: Roxy Bautista RN) 0829 (Given - Provider: Maryam Rose RN) 100 mg, Oral, DAILY, First dose on Fri at 1630, Indications: alcohol use disorder venlafaxine (EFFEXOR XR) 24 hr capsule 300 mg 0825 (Gi alex - Provider: Roxy Bautista RN) 0805 (Given - Provider: Roxy Bautista RN) 0829 (Given - Provider: Maryam Rose RN) 300 mg, Oral, DAILY, First dose on Fri at 0800, Indications: Generalized Anxiety Disorder, DO NOT CRUSH. Vitamin D3 (CHOLECALCIFEROL) tablet 2,000 Units 0824 ( Given - Provider: Roxy Bautista RN) 0806 (Given - Provider: Roxy Bautista RN) 0829 (Given - Provider: Maryam Rose, RN) 2,000 Units, Oral, DAILY, First dose on Fri07/23/21 at 1630, Indications: Vitamin D Deficiency, Note: 25 mcg = 1000 units PRN Medication Order 08/20/2021 08/21/2021 08/22/2021 acetaminophen (TYLENOL) tablet 975 mg 0306 (Given - Pr ovider: Frederick Jack RN)2129 (Given - Provider: Radames Kee RN) 0807 (Given - Provider: Roxy Bautista RN)1737 (Given - Provider: Radames Kee RN) 0454 (Given - Provider: Liza Lloyd RN)0938 (Not Given - Provider: Maryam Rose RN - Reason: Other - Comment: Too early to give)1400 (Given - Provider: Maryam Rose RN) 975 mg, Oral, EVERY 8 HOURS PRN, mild pa in, Starting on Fri07/23/21 at 1616, Maximum acetaminophen dose from all sources = 75 mg/kg/day not to exceed 4 grams/day. alum & mag hydroxide-simethicone (MAALOX) suspension 3 0 mL 0813 (Given - Provider: Roxy Bautista RN) 0834 (Given - Provider: Maryam Rose RN) 30 mL, Oral, EVERY 4 HOURS PRN, indigest ion, Starting on 08/18/21 at 1055, Shake well. fexofenadine (ELOISE) tablet 180 mg 180 mg, Oral, DAILY PRN, allergies, Star ting on Fri07/23/21 at 1616, Indications: irritant dermatitis hydrOXYzine (ATARAX) tablet 25 mg 0307 (Given - Provider: Frederick Jack RN) 0926 (Given - Provider: Maryam Rose RN) 25 mg, Oral, EVERY 6 HOURS PRN, other, a nxiety, adjuvant pain, Starting on Fri07/23/21 at 1616 ibuprofen (ADVIL/MOTRIN) tablet 200 mg (COMPLETED) 112 1 (Given - Provider: Roxy Bautista RN)1622 (Given - Provider: Radames Kee, RN) 1602 (Given - Provider: Radames Kee, RN)2210 (Given - Provider: Radames Kee, RN) 0454 (Given - Provider: Liza butts RN) 200 mg, Oral, EVERY 6 HOURS PRN, moderat e pain, Dental pain, Starting on Fri08/20/21 at 1012, For 5 doses, Give with food. melatonin tablet 3 mg 3 mg, Oral, AT BEDTIME PRN, sleep, Starting on Fri08/14/21 at 13 39 naloxone (NARCAN) injection 0.2 mg(Linked Group 1) 0.2 mg, Intravenous, EVERY 2 MIN PRN, op ioid reversal, Starting on Fri07/23/21 at 1626, Administer intravenous route when available and notify provider when administered. For unintended sedation or respi ratory depression if all of the below cr iteria are met: ~ respiratory rate LESS than or EQUAL to 8. ~SaO2 less than 92% and or/end-tidal CO2 is greater than 50. ~ the patient is receiving an opioid, has unintended sedations assessed as RASS ( -3), and is currently not on mechanical ventilation. RASS scale moderate (-3) is movement or eye opening to voice but no eye contact. Patient Monitoring Once the patient has demonstrated a response to t he naloxone, continue to monitor respiratory rate, depth, oxygen saturation and end-tidal CO2 (if available) every 15 minutes x 2, then every 30 minutes x 2, then every 1 hour x 1 after each naloxone do se. Consider transfer to ICU if patient respiratory parameters have not improved after 4 naloxone doses. naloxone (NARCAN) injection 0.2 mg(Linked Group 1) 0.2 mg, Intramuscular, EVERY 2 MIN PRN, opioid reversal, Starting on Fri07/23/21 at 1626, Administer intramuscular if an intravenous route is not available and notify provider when administered. For unin tended sedation or respiratory depressio n if all of the below criteria are met: ~ respiratory rate LESS than or EQUAL to 8. ~SaO2 less than 92% and or/end-tidal CO2 is greater than 50. ~ the patient is receiving an opioid, has unintended evan tions assessed as RASS (-3), and is currently not on mechanical ventilation. RASS scale moderate (-3) is movement or eye opening to voice but no eye contact. Senait ent Monitoring Once the patient has demo nstrated a response to the naloxone, continue to monitor respiratory rate, depth, oxygen saturation and end-tidal CO2 (if available) every 15 minutes x 2, then ev douglas 30 minutes x 2, then every 1 hour x 1 after each naloxone dose. Consider transfer to ICU if patient respiratory parameters have not improved after 4 naloxone doses. naloxone (NARCAN) injection 0.4 mg(Linked Group 1) 0.4 mg, Intravenous, EVERY 2 MIN PRN, op ioid reversal, Starting on Fri07/23/21 at 1626, Administer intravenous route when available and notify provider when administered. For unintended sedation or respi ratory depression if all of the below cr iteria are met: ~ respiratory rate LESS than or EQUAL to 8. ~ SaO2 less than 92% and or/end-tidal CO2 is greater than 50. ~ the patient is receiving an opioid, lo s unintended sedation assessed as RASS ( -4) or (-5) and patient is currently not on mechanical ventilation. RASS scale (-4) is deep sedation with no response to voice but movement or eye opening to phys ical stimulation. RASS scale (-5) is wyatt rousable. Patient Monitoring Once the patient has demonstrated a response to the naloxone, continue to monitor respiratory rate, depth, oxygen saturation and end- tidal CO2 (if available) every 15 minute s x 2, then every 30 minutes x 2, then every 1 hour x 1 after each naloxone dose. Consider transfer to ICU if patient respiratory parameters have not improved after 4 naloxone doses. naloxone (NARCAN) injection 0.4 mg(Linked Group 1) 0.4 mg, Intramuscular, EVERY 2 MIN PRN, opioid reversal, Starting on Fri07/23/21 at 1626, Administer intramuscular if an intravenous route is not available and notify provider when administered. For unin tended sedation or respiratory depressio n if all of the below criteria are met: ~ respiratory rate LESS than or EQUAL to 8. ~ SaO2 less than 92% and or/end- tidal CO2 is greater than 50. ~ the patient is receiving an opioid, has unintended sed ation assessed as RASS (-4) or (-5) and patient is currently not on mechanical ventilation. RASS scale (-4) is deep sedation with no response to voice but movemen t or eye opening to physical stimulation . RASS scale (-5) is unarousable. Patient Monitoring Once the patient has demonstrated a response to the naloxone, continue to monitor respiratory rate, depth, ox ygen saturation and end-tidal CO2 (if av ailable) every 15 minutes x 2, then every 30 minutes x 2, then every 1 hour x 1 after each naloxone dose. Consider transfer to ICU if patient respiratory parameters have not improved after 4 naloxone doses. Nurse may request from Pharmacy a change of form of medication (e.g. Liquid to tablet). CONTINUOUS PRN, Starting on Fri07/23/21 a t 1616, Until Fri08/22/21 at 1819, Nurse may request from Pharmacy a change of form of medication (e.g. Liquid to tablet). ondansetron (ZOFRAN ODT) ODT tab 4 mg 4 mg, Oral, EVERY 6 HOURS PRN, nausea, v omiting, Starting on Fri08/08/21 at 1113, With dry hands, peel back foil backing and gently remove tablet. Do not push oral disintegrating tablet through foil irma rafael. Administer immediately on tongue a nd oral disintegrating tablet dissolves in seconds, then swallow with saliva. Liquid not required. polyethylene glycol (MIRALAX) Packet 17 g 17 g, Oral, DAILY PRN, constipation, Sta rting on Fri07/23/21 at 1616, Indications: Constipation, If the patient has multiple PO bowel stimulant agents ordered PRN, offer in the following order per policy . Move to the next available step if the earlier step is ineffective. Step 1 - senna; Step 2 - bisacodyl; Step 3 - milk of magnesia; Step 4 - polyethylene glycol; Step 5 - magnesium citrate. 1 Packet = 17 grams. Mix each gram with at least 1/ 2 ounce (15 mL) of water - 8 ounces for 17 g dose, 4 ounces for 8.5 g dose, 2 ounces for 4 g dose. Follow with the same volume of water. Hold for loose stools unl ess being administered as part of a bowel prep regimen or bowel clean out. sodium chloride (PF) 0.9% PF flush 3 mL (CANCELED) 0911 (Given - Provider: Roxy Bautista RN) 3 mL, Intracatheter, EVERY 1 MIN PRN, li ne flush, other, to ensure patency or to lock dormant line, Starting on 6/25/22 at 0057 No Frequency Medication Order 08/20/2021 08/21/2021 08/22/2021 sodium chloride 0.9 % infusion (COMPLETED) 1623 (New B ag - Provider: Radames Kee RN) Radames Kee: cabinet override, 1 dos e, Starting on Fri08/20/21 at 1611, Until Fri08/20/21 at 1623 Linked Groups Order Group 1: naloxone (NARCAN) injection 0.2 mgJump to med 0.2 mg, Intravenous, EVERY 2 MIN PRN, op ioid reversal, Starting on Fri07/23/21 at 1626
Administer intravenous route when available and notify provider when administered. For unintended sedation or respiratory depression if al l of the below criteria are met: ~ respiratory rate LESS than or EQUAL to 8. ~SaO2 less than 92% and or/end- tidal CO2 is greater than 50.&n bsp;~ the patient is receiving an opioid , has unintended sedations assessed as RASS (-3), and is currently not on mechanical ventilation. RASS scale moderate (-3) is movement or eye o pening to voice but no eye contact.&nbsp ; Patient Monitoring Once the patient has demonstrated a response to the naloxone, continue to monitor respiratory rate, depth, oxygen satur ation and end-tidal CO2 (if available) e very 15 minutes x 2, then every 30 minutes x 2, then every 1 hour x 1 after each naloxone dose. Consider transfer to ICU if patient respiratory parameters have not improved after 4 na loxone doses.
Or naloxone (NARCAN) injection 0.4 mgJump to med 0.4 mg, Intravenous, EVERY 2 MIN PRN, op ioid reversal, Starting on Fri07/23/21 at 1626
Administer intravenous route when available and notify provider when administered. For unintended sedation or respiratory depression if al l of the below criteria are met: ~ respiratory rate LESS than or EQUAL to 8. ~ SaO2 less than 92% and or/end- tidal CO2 is greater than 50.&n bsp;~ the patient is receiving an opioid , has unintended sedation assessed as RASS (-4) or (-5) and patient is currently not on mechanical ventilation. RASS scale (-4) is deep sedatio n with no response to voice but movement or eye opening to physical stimulation. RASS scale (-5) is unarousable. Patient Monitoring Onc e the patient has demonstrated a respons e to the naloxone, continue to monitor respiratory rate, depth, oxygen saturation and end-tidal CO2 (if available) every 15 minutes x 2, then every 30 minutes x 2 , then every 1 hour x 1 after each nalox one dose. Consider transfer to ICU if patient respiratory parameters have not improved after 4 naloxone doses.
Or naloxone (NARCAN) injection 0.2 mgJump to med 0.2 mg, Intramuscular, EVERY 2 MIN PRN, opioid reversal, Starting on Fri07/23/21 at 1626
Administer intramuscular if an intravenous route is not available and notify provider when administered.& amp;nbsp;For unintended sedation or resp iratory depression if all of the below criteria are met: ~ respiratory rate LESS than or EQUAL to 8. ~SaO2 less than 92% and or/end-tidal CO2 i s greater than 50. ~ the patient is receiving an opioid, has unintended sedations assessed as RASS (-3), and is currently not on mechanical ventilation. RASS scale moderate ( -3) is movement or eye opening to voice but no eye contact. Patient Monitoring Once the patient has demonstrated a response to the naloxone, continue to monitor respiratory r ate, depth, oxygen saturation and end-ti breanna CO2 (if available) every 15 minutes x 2, then every 30 minutes x 2, then every 1 hour x 1 after each naloxone dose. Consider transfer to U if patient respiratory parameters have not improved after 4 naloxone doses.
Or naloxone (NARCAN) injection 0.4 mgJump to med 0.4 mg, Intramuscular, EVERY 2 MIN PRN, opioid reversal, Starting on 07/23/21 at 1626
Administer intramuscular if an intravenous route is not available and notify provider when administered.& amp;nbsp;For unintended sedation or resp iratory depression if all of the below criteria are met: ~ respiratory rate LESS than or EQUAL to 8. ~ SaO2 less than 92% and or/end-tidal CO2 i s greater than 50. ~ the patient is receiving an opioid, has unintended sedation assessed as RASS (-4) or (-5) and patient is currently not on mechanical ventilation. RASS sc josi (-4) is deep sedation with no respon se to voice but movement or eye opening to physical stimulation. RASS scale (-5) is unarousable. Patient Monitoring Once the patient has de monstrated a response to the naloxone, continue to monitor respiratory rate, depth, oxygen saturation and end-tidal CO2 (if available) every 15 minutes x 2, t hen every 30 minutes x 2, then every 1 h our x 1 after each naloxone dose. Consider transfer to ICU if patient respiratory parameters have not improved after 4 naloxone doses.
documented in this encounter Additional Health Concerns Infection Onset Date Last Indicated Resolved Time MRSAComment: Added from external infection. 11/07/201406/18 Assessment Noted Time PHQ-9 Depression Total Score: 2 12/15/2020 1:07 PM CDT documented as of this encounter Care Teams Wellness Program Administrator Relationship Specialty Start Date End Date Juanis Mckenzie PCP - General Addiction Medicine 06/29/21 [address] [place] [phone] Stephani Pina, Assigned PCP 02/25/21 CARE TRANSITION MGR RN ONCOLOGY CLINICAL [address] [place] [address] Elsa Yeh, Registered Nurse Infectious Diseases 07/25/21 RN Treadwell, Rogelio Assigned Musculoskeletal 08/04/21 MD August Provider [address] [place] [address] Luis Camara MD Podiatry 08/16/21 CALVIN Burnett [address] [place] [address] documented as of this encounter
--- OUTSIDE RECORDS SUMMARY | 2021-11-10 00:35 | XMS_ITS | Encounter Summary ---
:1980 Author Organization [place] Address [address] [place] [id number] Care Team Providers Name Role Phone Stephani Pina APRN DIRECTOR CHEMISTRY Unavailable Juanis Levi Primary Care Provider Elsa Yeh RN Unavailable Unavailable Reason for Referral Diagnostic Imaging XR (Routine) - Pending Review Specialty Diagnoses / Procedures Referred By Contact Refer red To Contact Diagnoses Ankle pain Rogelio Treadwell MD Procedures XR Ankle Right G/E 3 Views [address] [place], [place] [address] Referral ID Status Reason Start Date Expiration Date Visits V isits Requested Authorized [id number] Pending 07/31/2021 07/31/2022 1 1 Review Encounter Details Date Type Department Care Team Description 07/31/2021 Orders Only [facility] Rogelio Treadwell in (Primary Orthopedic Clinic MD August Dx) [place] [address] [facility] [address] [place], [place] 4th Floor [address] [place], [place] [phone] (Wo rk) [address] [phone] Social History Tobacco Use Types Packs/Day Years [...] at Date Recorded Female 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 11/07/201406/18 Assessment Noted Time PHQ-9 Depression Total Score: 2 12/15/2020 1:07 PM CDT documented as of this encounter Care Teams Envelope Folding Machine Adjuster Relationship Specialty Start Date End Date Juanis Levi PCP - General Addiction Medicine 06/29/21 [address] [facility] [place] [phone] Stephani Pina APRN DIRECTOR CHEMISTRY Assigned PCP 02/25/21 [address] [facility] [address] [place] [address] Elsa Yeh, RN Registered Nurse Infectious Diseases 07/25/21 documented as of this encounter
--- OUTSIDE RECORDS SUMMARY | 2021-11-10 00:35 | XMS_ITS | Encounter Summary ---
:1980 Author Organization [place] Address [address] [facility] [place] [address] Care Team Providers Name Role Phone Stephani Pina APRN INDEPENDENT DISTRIBUTOR Unavailable [phone] Juanis Levi Primary Care Provider Elsa Yeh RN Unavailable Unavailable Rogelio Treadwell MD Unavailable [phone] Luis Camara DPM Unavailable [phone] Camryn Christina MD Unavailable Sintia Lange PA-C Unavailable Encounter Details Date Type Department Care Team Description 08/15/2021 Hospital Encounter [facility] Liz swan, Transitional Care Unit MD [place] [id number] [place] [id number] [place] [address] [phone] (Wo rk) Social History Tobacco Use Types Packs/Day Years [...] at Date Recorded Female 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 documented as of this encounter Plan of Treatment Upcoming Encounters Date Type Specialty Care Team Description 11/15/2021 Office Visit Wound Care Luis Camara DPM [address] [place] [address] (Wo rk) documented as of this encounter Visit Diagnoses Not on filedocumented in this encounter Additional Health Concerns Infection Onset Date Last Indicated Resolved Time MRSAComment: Added from external infection. 11/07/201406/18 Assessment Noted Time PHQ-9 Depression Total Score: 2 12/15/2020 1:07 PM CDT documented as of this encounter Care Teams Flexo Operator Relationship Specialty Start Date End Date Juanis Levi PCP - General Addiction Medicine 06/29/21 [address] [place] [phone] Stephani Pina, Assigned PCP 02/25/21 HOT SEALING 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 INDEPENDENT DISTRIBUTOR [address] [place] [address] Elsa Yeh, Registered Nurse Infectious Diseases 07/25/21 RN Rogelio Treadwell Assigned Musculoskeletal 08/04/21 MD August Provider [address] [place], [place] [phone] Luis Camara MD Podiatry 08/16/21 CALVIN Burnett [address] [place] [address] Camryn Christina Assigned Surgical 09/01/21 09/07/21 MD Lexie Provider [address] [facility] [address] [place] [address] Sintia Lange, Assigned Surgical 09/08/21 PA-C Provider [address] [address] documented as of this encounter
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
--- OUTSIDE RECORDS SUMMARY | 2021-11-10 00:36 | XMS_ITS | Encounter Summary ---
:1980 Author Organization [place] Address [facility] 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 documented in this encounter Plan of Treatment Upcoming Encounters Date Type Specialty Care Team Description 11/15/2021 Office Visit Wound Care Luis Camara DPM [address] [place], [place] [address] (Wo rk) documented as of this encounter Visit Diagnoses Not on filedocumented in this encounter Additional Health Concerns Infection Onset Date Last Indicated Resolved Time MRSAComment: Added from external infection. 11/07/2014 05/2 02/2021 Assessment Noted Time PHQ-9 Depression Total Score: 2 12/15/2020 1:07 PM CDT documented as of this encounter Care Teams Evp Operations Relationship Specialty Start Date End Date Juanis Levi PCP - General Addiction Medicine 06/29/21 [facility] [place] [phone] Stephani Pina APRN DIGITAL ADVERTISING ANALYST Assigned PCP 02/25/[address] [place] [address] Elsa Yeh, RN Registered Nurse Infectious Diseases 07/25/21 documented as of this encounter
--- OUTSIDE RECORDS SUMMARY | 2021-11-10 00:36 | XMS_ITS | Encounter Summary ---
:1980 Author Organization [facility] Address [address] [place] [address]. [place] [address] Care Team Providers Name Role Phone Deann Pina APRN THIRD LOADER Unavailable [phone] Juanis Mckenzie Primary Care Provider Reason for Visit Auth/Cert Specialty Diagnoses / Procedures Referred By Contact Refer red To Contact Med Surg Diagnoses Complicated Osteomyelitis Ur Ortho [address] [place] [address] [place] [address] Phone: Fax: Referral ID Status Reason Start Date Expiration Date Visits Requ ested Visits Authorized [id number] 1 1 Encounter Details Date Type Department Care Team Description [facility] [address] [place] [address] Osteomyelitis of right ankle, unspecifie d type (H) (Primary Dx); 07/23/2021 Encounter [facility] Med Surg Jaime Rae MD [address] [place] [address] [address] [place] [address] Anxiety; Orthopedic Alcohol use disorder, severe , dependence (H); [address] [place] [address] [place] [address] Social History Tobacco Use Types Packs/Day Years [...] at Date Recorded Female 01/14/2020 10:57 AM HEAD OF STRATEGY documented as of this encounter Last Filed Vital Signs Vital Sign Reading Time Taken Comments Blood Pressure 111/74 07/23/2021 7:42 AM CDT Pulse 77 07/23/2021 7:42 AM CDT Temperature 37.1 ??C (98.8 ??F) 07/23/2021 7:42 AM CDT Respiratory Rate 16 07/23/2021 7:42 AM CDT Oxygen Saturation 98% 07/23/2021 7:42 AM CDT Inhaled Oxygen Concentration - - Weight 79.4 kg (175 lb) 07/11/2021 10:01 AM CDT Height 167.6 cm (5' 6) 07/11/2021 10:01 AM CDT Body Mass Index 28.25 07/11/2021 10:01 AM CDT documented in this encounter Discharge Summaries Elizabeth Howell MD - 07/23/2021 7:40 AM CDT [facility] Hospitalist Discharge Summary Date of Admission: 07/06/2021 Date of Discharge: 07/23/2021 Discharging Provider: Elizabeth Howell MD Discharge Service: Hospitalist Service, [facility] TEAM 17 Discharge Diagnoses # R ankle wound, osteomyelitis?? # MSSA bacteremia # Irritant versus allergic contact dermatitis ## HCV chronic infection # Transaminitis??- improving.?? # Alcohol use disorder.?? #Acute encephalopathy, suspect toxic metabolic. #Hypokalemia, hypomagnesemia #Hypothyroidism #Chronic pain #Opiate dependency #Pressure ulcers right buttock, gluteal fold #Physical deconditioning #Tobacco use disorder #Anemia, acute on chronic. Follow-ups Needed After Discharge Follow-up Appointments Adult [facility] Follow-up and recommended labs and tests Follow up with Dr Camara or Morgan with Podiatry in 1-2 weeks. Clinic phone number is [phone] Follow up with Plastic Surgery in 2 weeks. Follow up with infectious disease 4-6 weeks. Follow-up Labs: Weekly CBC w diff, BMP, CRP. Please have labs faxed to ID clinic. Appointments on [facility] and[facility]or [facility] (with [facility] or [facility] provider or service). Call [phone] if you haven't heard regarding these appointments within 7 days of discharge. Discharge Disposition Discharged to rehabilitation facility Condition at discharge: Stable Hospital Course Discharge day 07/21/2021 Doing well. Pain controlled. Rash, pruritus: improving. Stable hemodynamics. No new concern/changes.TCU discharge. ?? 40 year old female??with past medical history significant for opioid use disorder,??alcohol use disorder,??HCV, hypothyroidism, depression, anxiety, and tobacco abuse??admitted on 07/06/21 from [facility] for further care of R ankle osteomyelitis by Orthopedics, Plastics, and Infectious Disease.? 07/19: Per patient request: Increased Subutex dose to 8 mg 3 times daily, APPLICATION INTEGRATION ARCHITECT dose. Schedule Robaxin 750 3 times daily. Adjusted gabapentin to 300 mg at bedtime. Hold for sedation. ?? 07/18: Per ID: --Stop vancomycin and zosyn; start cefazolin 2g Q8H ?- Please check WBC and CRP the next 2-3 days to make sure there isn't a rebound with switching therapy ? # R ankle osteomyelitis?? # Right ankle pain and immobility #MSSA bacteremia.??- Blood cx positive at OSH. ??Initially treated with Vanc/Zosyn and transitioned to Ancef. ??TTE 06/29 neg for vegetation. ?? Presented to OSH with worsening R ankle pain and unable to walk x 1 week on 06/28.?MRI 06/29 w/ extensive tibiotalar erosions w/ large joint effusion and synovitis, diffuse muscle and superficial softtissue edema.?S/p calcaneal hardware removal??and underwent??I&D x 3. ??Arthrocentesis attempted there without fluid retrieval. ??Wound cx positive for MSSA. ??Has exposed bone and tendon now with wound vac in place.? Initially treated with broad antibiotics IV vancomycin and Zosyn. Orthopedic surgery, infectious disease,WOCN consulted. 07/07/2021: Status post IRRIGATION AND DEBRIDEMENT, FOOT and ankle, wound vac exchange by Dr. Olivera. ??EBL: 25 ml Per Ortho: ?? aspirin 162 mg every day for DVT prophylaxis. ?? NWB on the RLE. Elevation: Elevate??RLE??on pillows as much as possible. Wound Care:??Wound vac to remain in place @ 125mmHg Cultures: Wound culture positive for 1+ staph simulans. Blood cultures remain no growth to date. Follow-up:??Follow up as an outpatient in 2 weeks with plastic surgery. Follow up either with Dr. Treadwell or with Podiatry team Dr. Mora and/or Dr. Camara. Infectious disease recommendations 07/21/2021 dw ID. ??Infectious Diseases Diagnosis/es: MSSA bacteremia secondary to left ankle osteomyelitis s/p hardware removal and multiple debridements ?? IV antibiotics: Yes ?? Antibiotic Information Name of Antibiotic Dose [...] end of therapy should the line be removed? Yes. Selecting yes will function as written order to remove PICC line at the end of therapy. ?? Tentative plans for disposition: Transitional Care Unit ?? Weekly labs required: CBC with diff, BMP and CRP. Dr. Bullock will follow labs at discharge until IDfollow up. Please have labs faxed to ID clinic. ?? Appointment to be scheduled: Within 4-6 weeks of discharge. Type of ID Clinic Appointment In-Person visit. Appointment will be scheduled with: Next available General ID Provider. Routine hospital follow up appointments are 30 minutes. If 60 minutes is necessary due to complexity of case indicate that a 60 min appointment is required. Appointment time Appointment Time: 30 minutes. If the patient remains in the hospital at this date please re-consult ID. ?? Imaging for ID follow up: ID Imaging: Follow up imaging for ID purposes not recommended at the time of this documentation. ?? WOCN following. See note in epic for recommendations.. ??>Pain control: Currently controlled. -Continue??APPLICATION INTEGRATION ARCHITECT??Suboxone 8mg tid ??; scheduled APAP 975mg TID, Gabapentin 300mg HS, Robaxin 750mg TID, and oxycodone 5-10mg Q6H PRN. ? #Acute rash:??Blanchable rash on the both legs left>right. Right arm,and around picc line. Picture taken. See under media. - Dermatology consulted. See recommendations. Appreciate input. -Topical steroids, antiallergy pills as needed. Rash improving. Per dermatology: # Irritant versus allergic contact dermatitis to adhesives from PICC line dressing with disseminatedid reaction (autosensitization/autoeczematization) - suspect due to adhesive dressings to secure PICC line exacerbated by fluid leakage and resulting impaired skin barrier function; due to need for PICC for prolonged antibiotic course, would recommend avoiding irritating and sensitizing cleansing solutions including chlorhexidine gluconate when changing the dressing - would recommend silicone-faced low allergenic polyurethane foam dressings (Mepitac tape, Sorbiview, [id number]) over occlusive adhesive semipermeable gauze dressings; WOC can provide more detailed recommendations - overall suspicion for cutaneous dermatophyte or yeast infection is low, suspect that square-shapedannular lesion on right medial arm may have been triggered prior adhesive bandage; some peripheral satellite papules lesions at primary dermatitis site on left arm, can consider swapping the lesions for a fungal culture (results usually take days to weeks and should not delay discharge planning); consider adding anti-yeast agents such as nystatin ointment or clotrimazole cream to target/prevent secondary Karla infection - Vaseline to scaly irritated inflamed skin to maintain skin barrier - clobetasol 0.05% ointment 1-2 times daily to inflamed plaque on left arm near PICC insertion untilimproved - triamcinolone 0.1% ointment (request 80g or more from pharmacy) 1-2 times daily to all other areas - antihistamines PRN pruritus per primary - can consider referral for patch testing after discharge ? # HCV, chronic*1 # Transaminitis??- improving.?? # Alcohol use disorder.?? HCV quant 141208??at OSH. ??AST 117, ALT 44, and AP 213 on 07/05. ??Tbili 1.6. ??Albumin 2.9. ??INR 1.39. ??Started on Lactulose and Spironolactone at OSH; discussed with patient, does not recall being prescribed these meds prior to admission. ?? - Continue Lactulose for now. Discontinue spironolactone - Follow-up CMP- improving. - US abdomen -Hepatosplenomegaly and diffuse hepatic steatosis. - follow up with Hepatology outpatient?? - Alcohol abstinence. CD tt as needed. ?? # Acute Encephalopathy, suspect toxic metabolic: Resolved. Per chart review, patient somnolent on admission and with periods of confusion early in admission. ??Vallejo to be??toxic vs metabolic??2/2 ?withdrawal, infection, sepsis. ??Utox positive only for cannabinoids. ??Started on Lactulose at OSH. Currently alert, oriented, nonfocal.. - Monitor for sedation with pain meds, minimize narcotics. - Narcan prn -Continue Lactulose as above? # Hypokalemia # Hypomagnesemia?? In setting of sepsis, poor PO intake at OSH. ?? -Replace per protocol. ?? # Hypothyroidism??- Continue Levothyroxine 125mcg QAM. ?? #??Hx opioid use disorder?? # Chronic pain In remission, has been successfully managed on??buprenorphine??since 2009. ??On buprenorphine 8 mg 3times daily.-See above for rest. ?? # Pressure ulcers R buttocks, gluteal fold??- Noted on admission??at OSH to have skin redness at gluteal fold between thigh and buttocks.?- WOCN consult. - Continue wound cares ? # Anemia??- Hgb 9.9. 6/2. ??Possibly??acute blood loss plus??chronic illness, liver dysfunction. ?? - ??iron 35. - Continue folate supplementation ?? # Tobacco abuse??- Nicotine replacement per patient preference ?? # Indwelling duarte:??07/08:??discontinued duarte Urinating well with no significant retention. Monitor PVR.? Diet: Regular Diet Adult Diet Diet Snacks/Supplements Adult: Ensure Enlive; Between Meals DVT Prophylaxis: per Ortho. ??ASA 162mg qD??and mechanical while in the hospital Duarte Catheter: Not present Central Lines: PRESENT PICC Single Lumen Left-Site Assessment: WDL Cardiac Monitoring: None Code Status: Full Code ?? Consultations This Hospital Stay INTERNAL MEDICINE ADULT IP CONSULT FOR [facility] PHYSICAL THERAPY ADULT IP CONSULT OCCUPATIONAL THERAPY ADULT IP CONSULT INFECTIOUS DISEASE [facility] ADULT IP CONSULT ORTHOPAEDIC SURGERY ADULT/PEDS IP CONSULT WOUND OSTOMY CONTINENCE NURSE IP CONSULT SOCIAL WORK IP CONSULT PLASTIC SURGERY IP CONSULT WOUND OSTOMY CONTINENCE NURSE IP CONSULT PHARMACY TO DOSE [facility]ANCO DERMATOLOGY IP CONSULT Code Status Full Code Time Spent on this Encounter I, Jaime Rae MD, personally saw the patient today and spent greater than 30 minutes discharging this patient. Elizabeth Howell MD [facility] [address] [place] [id number] Physical Exam Vital Signs: Temp: 98.6 ??F (37 ??C) Temp src: Oral BP: 122/76 Pulse: 79 Resp: 16 SpO2: 99 % O2 Device: None (Room air) Weight: 175 lbs 0 oz General Appearance: Awake, interactive, NAD HEENT: AT/NC, Anicteric, Moist MM Neck: Supple. Respiratory: Normal work of breathing. RA. Cardiovascular: S1 S2 Regular. GI/Abd: Nondistended. Extremities: Right ankle area: gus wrap. Wound vac+ Neuro: AO x 4, Grossly non focal. Skin: rash improving. Psychiatry: Stable mood. Primary Care Physician JUANIS MCKENZIE Discharge Orders Reason for your hospital stay Deann King is a 40 year old female s/p right foot I&D and HWR x3 at OSH (06/30, 07/02, 07/04)transferred on 07/06 for further management. Cultures with MSSA. NOW s/p R ankle/foot I&D + woundvac application with Dr. Olivera on 07/07/2021. Activity Your activity upon discharge: activity as tolerated Activity: Up with assist. Weight bearing status:??NWB RLE When to contact your care team Call Dr Olivera if you have any of the following: temperature greater than 101.3 or less than 96.5, increased shortness of breath, increased drainage, increased swelling, or increased pain. Wound care and dressings .Wound Care: Wound vac to remain in place @ 125mmHg, WOC performing Friday and Friday VAC changes Adult [facility] Follow-up and recommended labs and tests Follow up with Dr Camara or Morgan with Podiatry in 1-2 weeks. Clinic phone number is [phone] Follow up with Plastic Surgery in 2 weeks. Follow up with infectious disease 4-6 weeks. Follow-up Labs: Weekly CBC w diff, BMP, CRP. Please have labs faxed to ID clinic. Appointments on [facility]or [facility] (with [facility] or [facility] provider or service). Call [phone] if you haven't heard regarding these appointments within 7 days of discharge. Diet Follow this diet upon discharge: Orders Placed This Encounter Regular Diet Adult Diet Significant Results and Procedures Most Recent 3 CBC's: Recent Labs Lab Test 07/21/21 1512 07/19/21 0819 07/17/21 0736 WBC 4.4 4.9 5.8 HGB 9.8* 9.9* 9.8* MCV 94 94 93 PLT 166 152 157 Most Recent 3 BMP's: Recent Labs Lab Test 07/17/21 0736 07/16/21 0823 07/15/21 0609 07/14/21 0530 07/13/21 0540 07/11/21 0909 07/09/21 1222 NA 139 -- -- -- 139 -- 139 POTASSIUM 3.6 -- -- -- 3.9 -- 3.6 CHLORIDE 108 -- -- -- 106 -- 104 CO2 24 -- -- -- 26 -- 28 BUN 7 -- -- -- 11 -- 9 CR 0.60 0.66 0.64 < > 0.63 < > 0.55 ANIONGAP 7 -- -- -- 7 -- 7 MACARENA 9.1 -- -- -- 9.0 -- 9.2 GLC 102* -- -- -- 102* -- 117* < > = values in this interval not displayed. Most Recent 2 LFT's: Recent Labs Lab Test 07/17/21 0736 07/13/21 0540 AST 56* 50* ALT 42 31 ALKPHOS 157* 167* BILITOTAL 0.7 1.1 Most Recent 3 INR's: Recent Labs Lab Test 07/06/21 1534 01/11/20 2117 02/28/19 1557 INR 1.39* 1.14 0.92 Most Recent 6 Bacteria Isolates From Any Culture (See EPIC Reports for Culture Details): Recent Labs Lab Test 12/24/16 0750 12/07/16 1800 12/07/16 1455 12/07/16 1327 CULT <10,000 colonies/mL mixed urogenital evelina Susceptibility testing not routinely done Light growth Normal skin evelina Canceled, Test credited Test reordered as correct code >100,000 colonies/mL mixed urogenital evelina Susceptibility testing not routinely done Beta hemolytic Streptococcus group B isolated * Most Recent Urinalysis: Recent Labs Lab Test 07/09/21 1733 COLOR Yellow APPEARANCE Clear URINEGLC Negative URINEBILI Negative URINEKETONE Negative SG 1.018 UBLD Negative URINEPH 6.5 PROTEIN Negative NITRITE Negative LEUKEST Negative RBCU 1 WBCU 3 Most Recent ESR & CRP: Recent Labs Lab Test 07/19/21 0819 07/09/21 1222 07/08/21 0714 SED -- -- 102* CRP 15.0* < > 57.0* < > = values in this interval not displayed. Most Recent Anemia Panel: Recent Labs Lab Test 07/21/21 1512 07/07/21 1235 07/06/21 1534 01/13/20 0742 WBC 4.4 < > 5.7 -- HGB 9.8* < > 10.4* -- HCT 30.2* < > 32.4* 39.5 MCV 94 < > 98 -- PLT 166 < > 243 -- IRON -- -- 35 -- IRONSAT -- -- 12* -- FEB -- -- 288 -- B12 -- -- -- 870 FOLIC -- -- -- 30.2 < > = values in this interval not displayed. , Results for orders placed or performed during the hospital encounter of 07/06/21 US Abdomen Complete Narrative EXAMINATION: US ABDOMEN COMPLETE, 07/07/2021 3:33 PM COMPARISON: None. HISTORY: Elevated LFTs, recent encephalopathy, evaluate for ascites, changes c/w cirrhosis TECHNIQUE: The abdomen was scanned in standard fashion with specialized ultrasound transducer(s) using both leigh-scale and limited color Doppler techniques. FINDINGS: Liver: The liver is enlarged measuring 21.9 cm in the craniocaudal dimension. The liver demonstrates homogenous and echogenic liver parenchyma. No focal hepatic lesions, although limited by rib shadowing. The main portal vein is patent with antegrade flow. Gallbladder: There is no wall thickening, pericholecystic fluid, positive sonographic Mckeon's sign or evidence for cholelithiasis. Bile Ducts: Both the intra- and extrahepatic biliary system are of normal caliber. The common bile duct measures 2 mm in diameter. Pancreas: Visualized portions of the head and body of the pancreas are unremarkable. Kidneys: Both kidneys are of normal echotexture, without mass or hydronephrosis. The craniocaudal dimensions are: right- 12.1 cm, left- 11.9 cm. Spleen: The spleen is enlarged measuring 15.0 cm in sagittal dimension. Aorta and IVC: The visualized portions of the aorta and IVC are unremarkable. The proximal aorta measures 2.7 cm in diameter and the IVC measures 1.9 cm in diameter. Fluid: No evidence of ascites or pleural effusions. Impression IMPRESSION: Hepatosplenomegaly and diffuse hepatic steatosis. I have personally reviewed the examination and initial interpretation and I agree with the findings. KIMBERLY JACOBSON MD XR Chest 1 View Narrative EXAMINATION: XR CHEST 1 VIEW 07/13/2021 6:18 PM. COMPARISON: 02/28/2019 HISTORY: PICC line placement FINDINGS: Frontal view. Left arm PICC tip projects over the SVC. Stable cardiac silhouette. No pleural effusion or pneumothorax. No focal pulmonary opacity. Impression IMPRESSION: Left arm PICC tip projects over the SVC. I have personally reviewed the examination and initial interpretation and I agree with the findings. KIMBERLY JACOBSON MD XR Chest 1 View Narrative Exam: XR CHEST 1 VIEW, 07/17/2021 3:47 PM Indication: picc line placement. Comparison: 07/13/2021 Findings: Semiupright view of the chest demonstrates stable position of the left arm PICC line tip, projecting over higher cc. Stable cardiac silhouette. No acute pulmonary opacities, pneumothorax or pleural effusion. Impression Impression: Stable positioning of left upper extremity PICC line with tip projecting over the high SVC. No acute airspace opacities. I have personally reviewed the examination and initial interpretation and I agree with the findings. TK THOMAS MD Echo Complete Value LVEF 55-60% Narrative [id number]^BUTCH^JAIME [facility] [address] [place] [id number] Name: DEANN KING : 1980 Study Date: 07/08/2021 12:07 PM Age: 40 yrs Gender: Female Patient Location: [facility] Reason For Study: Endocarditis Ordering Physician: JAIME RAE Performed By: Terri Pina BSA: 1.9 m2 Height: 66 in Weight: 180 lb HR: 66 BP: 135/75 mmHg Procedure Complete Portable Echo Adult. Interpretation Summary Global and regional left ventricular function is normal with an EF of 55-60%. Global right ventricular function is normal. The right ventricle is normal size. No significant valvular abnormalities. The estimated PA systolic pressure is 25 mmHg. IVC diameter <2.1 cm collapsing >50% with sniff suggests a normal RA pressure of 3 mmHg. There is no prior study for direct comparison. Left Ventricle Global and regional left ventricular function is normal with an EF of 55-60%. Left ventricular wall thickness is normal. Left ventricular size is normal. Left ventricular diastolic function is normal. Right Ventricle Global right ventricular function is normal. The right ventricle is normal size. Atria Both atria appear normal. Mitral Valve The mitral valve is normal. Trace mitral insufficiency is present. Aortic Valve The aortic valve is tricuspid. On Doppler interrogation, there is no significant stenosis or regurgitation. Tricuspid Valve The valve leaflets are not well visualized. Mild tricuspid insufficiency is present. The right ventricular systolic pressure is approximated at 21.5 mmHg plus the right atrial pressure. Pulmonic Valve The valve leaflets are not well visualized. Trace pulmonic insufficiency is present. Vessels Sinuses of Valsalva 3.0 cm. Ascending aorta 3.3 cm. IVC diameter <2.1 cm collapsing >50% with sniff suggests a normal RA pressure of 3 mmHg. Pericardium No pericardial effusion is present. Compared to Previous Study There is no prior study for direct comparison. MMode/2D Measurements & Calculations IVSd: 0.84 cm LVIDd: 4.6 cm LVIDs: 2.5 cm LVPWd: 0.94 cm FS: 45.1 % LV mass(C)d: 134.9 grams LV mass(C)dI: 70.5 grams/m2 Ao root diam: 3.0 cm asc Aorta Diam: 3.3 cm LVOT diam: 2.1 cm LVOT area: 3.5 cm2 RWT: 0.41 Doppler Measurements & Calculations MV E max yobani: 84.4 cm/sec MV A max yobani: 47.4 cm/sec MV E/A: 1.8 TR max yobani: 232.0 cm/sec TR max P.5 mmHg E/E' av.0 Lateral E/e': 6.3 Medial E/e': 9.6 Report approved by: Abdifatah Martinez 07/08/2021 02:15 PM Discharge Medications Current Discharge Medication List START taking these medications Details acetaminophen (TYLENOL) 325 MG tablet Take [...] Osteomyelitis of right ankle, unspecified type (H) ceFAZolin 2 g Inject 2 g into the vein every 8 hours Qty: 126 Bag, Refills: 0 Comments: End date per ID. At least 6 weeks total. Associated Diagnoses: Osteomyelitis of right ankle, unspecified type (H) clobetasol (TEMOVATE) 0.05 % external ointment Apply topically 2 times daily Apply to left arm rash Associated Diagnoses: Irritant dermatitis diphenhydrAMINE (BENADRYL) 25 MG capsule Take 1 capsule (25 mg) by mouth every 6 hours as needed foritching Associated Diagnoses: Irritant dermatitis fexofenadine (SRAVANTHI) 180 MG tablet Take 1 tablet (180 mg) by mouth daily as needed for allergies Associated Diagnoses: Irritant dermatitis !! hydrOXYzine (ATARAX) 25 MG tablet Take 1 tablet (25 mg) by mouth At Bedtime Associated Diagnoses: Anxiety !! hydrOXYzine (ATARAX) 25 MG tablet Take 1 tablet (25 mg) by mouth every 6 hours as needed for other or anxiety (adjuvant pain) Associated Diagnoses: Osteomyelitis of right ankle, unspecified type (H) methocarbamol (ROBAXIN) 750 MG tablet Take 1 tablet (750 mg) by mouth 3 times daily Associated Diagnoses: Osteomyelitis of right ankle, unspecified type (H) mineral oil-hydrophilic petrolatum (AQUAPHOR) external ointment Apply topically every 4 hours as needed for dry skin or irritation oxyCODONE (ROXICODONE) 5 MG tablet Take 1-2 tablets (5-10 mg) by mouth every 6 hours as needed for moderate to severe pain Qty: 40 tablet, Refills: 0 Associated Diagnoses: Osteomyelitis of right ankle, unspecified type (H) polyethylene glycol (MIRALAX) 17 g packet Take 17 g by mouth daily as needed for constipation Associated Diagnoses: Osteomyelitis of right ankle, unspecified type (H) senna-docusate (SENOKOT-S/PERICOLACE) 8.6-50 MG tablet Take 2 tablets by mouth 2 times daily Associated Diagnoses: Osteomyelitis of right ankle, unspecified type (H) thiamine (B-1) 100 MG tablet Take 1 tablet (100 mg) by mouth daily Associated Diagnoses: Osteomyelitis of right ankle, unspecified type (H) triamcinolone (KENALOG) 0.1 % external ointment Apply topically 2 times daily Apply to rash areas other than L arm Associated Diagnoses: Irritant dermatitis !! - Potential duplicate medications found. Please discuss with provider. CONTINUE these medications which have CHANGED Details gabapentin (NEURONTIN) 100 MG capsule Take 3 capsules (300 mg) by mouth At Bedtime Associated Diagnoses: Anxiety; Alcohol use disorder, severe, dependence (H) CONTINUE these medications which have NOT CHANGED Details buprenorphine (SUBUTEX) 8 MG SUBL sublingual tablet Place 1 tablet (8 mg) under the tongue 3 times daily Qty: 90 tablet, Refills: 0 Comments: JAMES: [id number] Associated Diagnoses: Opioid use disorder, severe, in sustained remission, on maintenance therapy (H) cholecalciferol 50 MCG (2000 UT) tablet Take 1 tablet (50 mcg) by mouth daily Qty: 90 tablet, Refills: 1 Associated Diagnoses: Alcohol abuse, continuous famotidine (PEPCID) 20 MG tablet Take 20 mg by mouth 2 times daily folic acid (FOLVITE) 1 MG tablet Take 1 tablet (1 mg) by mouth daily Qty: 90 tablet, Refills: 1 Associated Diagnoses: Alcohol use disorder, severe, dependence (H) lactulose (CEPHULAC) 20 GM packet Take 20 g by mouth 2 times daily levothyroxine (SYNTHROID/LEVOTHROID) 125 MCG tablet Take 1 tablet (125 mcg) by mouth every morning Qty: 90 tablet, Refills: 1 Associated Diagnoses: Hypothyroidism, unspecified type magnesium oxide (MAG-OX) 400 MG tablet Take 400 mg by mouth 2 times daily nicotine (NICODERM CQ) 14 MG/24HR [address] 1 patch onto the skin every 24 hours Qty: 28 patch, Refills: 11 Associated Diagnoses: Tobacco use disorder senna (SENOKOT) 8.6 MG tablet Take 2 tablets by mouth 2 times daily venlafaxine (EFFEXOR-XR) 150 MG 24 hr capsule Take 1 capsule (150 mg) by mouth daily Qty: 30 capsule, Refills: 1 Associated Diagnoses: Depression, unspecified depression type STOP taking these medications naloxone (NARCAN) 4 MG/0.1ML nasal spray Comments: Reason for Stopping: nicotine polacrilex (NICORETTE) 4 MG gum Comments: Reason for Stopping: potassium chloride ER (KLOR-CON M) 10 MEQ CR tablet Comments: Reason for Stopping: spironolactone (ALDACTONE) 25 MG tablet Comments: Reason for Stopping: Allergies No Known Allergies LIOT Jaime Rae MD - 07/21/2021 12:29 PM CDT [facility] Hospitalist Discharge Summary Date of Admission: 07/06/2021 Date of Discharge: 07/21/2021 Discharging Provider: Jaime Rae MD Discharge Service: Hospitalist Service, [facility] TEAM 17 Discharge Diagnoses # R ankle wound, osteomyelitis?? # MSSA bacteremia # Irritant versus allergic contact dermatitis ## HCV chronic infection # Transaminitis??- improving.?? # Alcohol use disorder.?? #Acute encephalopathy, suspect toxic metabolic. #Hypokalemia, hypomagnesemia #Hypothyroidism #Chronic pain #Opiate dependency #Pressure ulcers right buttock, gluteal fold #Physical deconditioning #Tobacco use disorder #Anemia, acute on chronic. Follow-ups Needed After Discharge Follow-up Appointments Adult [facility] Follow-up and recommended labs and tests Follow up with Dr Camara or Morgan with Podiatry in 1-2 weeks. Clinic phone number is [phone] Follow up with Plastic Surgery in 2 weeks. Follow up with infectious disease 4-6 weeks. Follow-up Labs: Weekly CBC w diff, BMP, CRP. Please have labs faxed to ID clinic. Appointments on [facility] and[facility]or [facility] (with [facility] or [facility] provider or service). Call [phone] if you haven't heard regarding these appointments within 7 days of discharge. Discharge Disposition Discharged to rehabilitation facility Condition at discharge: Stable Hospital Course Discharge day 07/21/2021 Doing well. Pain controlled. Rash, pruritus: improving. Stable hemodynamics. No new concern/changes.TCU discharge. ?? 40 year old female??with past medical history significant for opioid use disorder,??alcohol use disorder,??HCV, hypothyroidism, depression, anxiety, and tobacco abuse??admitted on 07/06/21 from [facility] for further care of R ankle osteomyelitis by Orthopedics, Plastics, and Infectious Disease.? 07/19: Per patient request: Increased Subutex dose to 8 mg 3 times daily, APPLICATION INTEGRATION ARCHITECT dose. Schedule Robaxin 750 3 times daily. Adjusted gabapentin to 300 mg at bedtime. Hold for sedation. ?? 07/18: Per ID: --Stop vancomycin and zosyn; start cefazolin 2g Q8H ?- Please check WBC and CRP the next 2-3 days to make sure there isn't a rebound with switching therapy ? # R ankle osteomyelitis?? # Right ankle pain and immobility #MSSA bacteremia.??- Blood cx positive at OSH. ??Initially treated with Vanc/Zosyn and transitioned to Ancef. ??TTE 06/29 neg for vegetation. ?? Presented to OSH with worsening R ankle pain and unable to walk x 1 week on 06/28.?MRI 06/29 w/ extensive tibiotalar erosions w/ large joint effusion and synovitis, diffuse muscle and superficial softtissue edema.?S/p calcaneal hardware removal??and underwent??I&D x 3. ??Arthrocentesis attempted there without fluid retrieval. ??Wound cx positive for MSSA. ??Has exposed bone and tendon now with wound vac in place.? Initially treated with broad antibiotics IV vancomycin and Zosyn. Orthopedic surgery, infectious disease,WOCN consulted. 07/07/2021: Status post IRRIGATION AND DEBRIDEMENT, FOOT and ankle, wound vac exchange by Dr. Olivera. ??EBL: 25 ml Per Ortho: ?? aspirin 162 mg every day for DVT prophylaxis. ?? NWB on the RLE. Elevation: Elevate??RLE??on pillows as much as possible. Wound Care:??Wound vac to remain in place @ 125mmHg Cultures: Wound culture positive for 1+ staph simulans. Blood cultures remain no growth to date. Follow-up:??Follow up as an outpatient in 2 weeks with plastic surgery. Follow up either with Dr. Treadwell or with Podiatry team Dr. Mora and/or Dr. Camara. Infectious disease recommendations 07/21/2021 dw ID. ??Infectious Diseases Diagnosis/es: MSSA bacteremia secondary to left ankle osteomyelitis s/p hardware removal and multiple debridements ?? IV antibiotics: Yes ?? Antibiotic Information Name of Antibiotic Dose [...] end of therapy should the line be removed? Yes. Selecting yes will function as written order to remove PICC line at the end of therapy. ?? Tentative plans for disposition: Transitional Care Unit ?? Weekly labs required: CBC with diff, BMP and CRP. Dr. Bullock will follow labs at discharge until IDfollow up. Please have labs faxed to ID clinic. ?? Appointment to be scheduled: Within 4-6 weeks of discharge. Type of ID Clinic Appointment In-Person visit. Appointment will be scheduled with: Next available General ID Provider. Routine hospital follow up appointments are 30 minutes. If 60 minutes is necessary due to complexity of case indicate that a 60 min appointment is required. Appointment time Appointment Time: 30 minutes. If the patient remains in the hospital at this date please re-consult ID. ?? Imaging for ID follow up: ID Imaging: Follow up imaging for ID purposes not recommended at the time of this documentation. ?? WOCN following. See note in epic for recommendations.. ??>Pain control: Currently controlled. -Continue??APPLICATION INTEGRATION ARCHITECT??Suboxone 8mg tid ??; scheduled APAP 975mg TID, Gabapentin 300mg HS, Robaxin 750mg TID, and oxycodone 5-10mg Q6H PRN. ? #Acute rash:??Blanchable rash on the both legs left>right. Right arm,and around picc line. Picture taken. See under media. - Dermatology consulted. See recommendations. Appreciate input. -Topical steroids, antiallergy pills as needed. Rash improving. Per dermatology: # Irritant versus allergic contact dermatitis to adhesives from PICC line dressing with disseminatedid reaction (autosensitization/autoeczematization) - suspect due to adhesive dressings to secure PICC line exacerbated by fluid leakage and resulting impaired skin barrier function; due to need for PICC for prolonged antibiotic course, would recommend avoiding irritating and sensitizing cleansing solutions including chlorhexidine gluconate when changing the dressing - would recommend silicone-faced low allergenic polyurethane foam dressings (Mepitac tape, Sorbiview, [id number]) over occlusive adhesive semipermeable gauze dressings; WOC can provide more detailed recommendations - overall suspicion for cutaneous dermatophyte or yeast infection is low, suspect that square-shapedannular lesion on right medial arm may have been triggered prior adhesive bandage; some peripheral satellite papules lesions at primary dermatitis site on left arm, can consider swapping the lesions for a fungal culture (results usually take days to weeks and should not delay discharge planning); consider adding anti-yeast agents such as nystatin ointment or clotrimazole cream to target/prevent secondary Karla infection - Vaseline to scaly irritated inflamed skin to maintain skin barrier - clobetasol 0.05% ointment 1-2 times daily to inflamed plaque on left arm near PICC insertion untilimproved - triamcinolone 0.1% ointment (request 80g or more from pharmacy) 1-2 times daily to all other areas - antihistamines PRN pruritus per primary - can consider referral for patch testing after discharge ? # HCV, chronic*1 # Transaminitis??- improving.?? # Alcohol use disorder.?? HCV quant 414140??at OSH. ??AST 117, ALT 44, and AP 213 on 07/05. ??Tbili 1.6. ??Albumin 2.9. ??INR 1.39. ??Started on Lactulose and Spironolactone at OSH; discussed with patient, does not recall being prescribed these meds prior to admission. ?? - Continue Lactulose for now. Discontinue spironolactone - Follow-up CMP- improving. - US abdomen -Hepatosplenomegaly and diffuse hepatic steatosis. - follow up with Hepatology outpatient?? - Alcohol abstinence. CD tt as needed. ?? # Acute Encephalopathy, suspect toxic metabolic: Resolved. Per chart review, patient somnolent on admission and with periods of confusion early in admission. ??[place]lejo to be??toxic vs metabolic??2/2 ?withdrawal, infection, sepsis. ??Utox positive only for cannabinoids. ??Started on Lactulose at OSH. Currently alert, oriented, nonfocal.. - Monitor for sedation with pain meds, minimize narcotics. - Narcan prn -Continue Lactulose as above? # Hypokalemia # Hypomagnesemia?? In setting of sepsis, poor PO intake at OSH. ?? -Replace per protocol. ?? # Hypothyroidism??- Continue Levothyroxine 125mcg QAM. ?? #??Hx opioid use disorder?? # Chronic pain In remission, has been successfully managed on??buprenorphine??since 2009. ??On buprenorphine 8 mg 3times daily.-See above for rest. ?? # Pressure ulcers R buttocks, gluteal fold??- Noted on admission??at OSH to have skin redness at gluteal fold between thigh and buttocks.?- WOCN consult. - Continue wound cares ? # Anemia??- Hgb 9.9. 6/2. ??Possibly??acute blood loss plus??chronic illness, liver dysfunction. ?? - ??iron 35. - Continue folate supplementation ?? # Tobacco abuse??- Nicotine replacement per patient preference ?? # Indwelling duarte:??07/08:??discontinued duarte Urinating well with no significant retention. Monitor PVR.? Diet: Regular Diet Adult Diet Diet Snacks/Supplements Adult: Ensure Enlive; Between Meals DVT Prophylaxis: per Ortho. ??ASA 162mg qD??and mechanical while in the hospital Duarte Catheter: Not present Central Lines: PRESENT PICC Single Lumen Left-Site Assessment: WDL Cardiac Monitoring: None Code Status: Full Code ?? Consultations This Hospital Stay INTERNAL MEDICINE ADULT IP CONSULT FOR [facility] PHYSICAL THERAPY ADULT IP CONSULT OCCUPATIONAL THERAPY ADULT IP CONSULT INFECTIOUS DISEASE [facility] ADULT IP CONSULT ORTHOPAEDIC SURGERY ADULT/PEDS IP CONSULT WOUND OSTOMY CONTINENCE NURSE IP CONSULT SOCIAL WORK IP CONSULT PLASTIC SURGERY IP CONSULT WOUND OSTOMY CONTINENCE NURSE IP CONSULT PHARMACY TO DOSE [facility]ANCO DERMATOLOGY IP CONSULT Code Status Full Code Time Spent on this Encounter I, Jaime Rae MD, personally saw the patient today and spent greater than 30 minutes discharging this patient. Jaime Rae MD [facility] [address] [facility] [id number] Physical Exam Vital Signs: Temp: 98.3 ??F (36.8 ??C) Temp src: Oral BP: 121/68 Pulse: 68 Resp: 16 SpO2: 100 % O2 Device: None (Room air) Weight: 175 lbs 0 oz General Appearance: Awake, interactive, NAD HEENT: AT/NC, Anicteric, Moist MM Neck: Supple. Respiratory: Normal work of breathing. RA. Cardiovascular: S1 S2 Regular. GI/Abd: Nondistended. Extremities: Right ankle area: gus wrap. Wound vac+ Neuro: AO x 4, Grossly non focal. Skin: rash improving. Psychiatry: Stable mood. Primary Care Physician JUANIS MCKENZIE Discharge Orders Reason for your hospital stay s/p??right foot I&D and HWR x3 at OSH (06/30, 07/02, 07/04) transferred??on 07/06 for further management. Cultures with MSSA. NOW s/p R ankle/foot I&D + wound vac application with Dr. Olivera on 07/07/2021. Activity Your activity upon discharge: activity as tolerated Activity: Up with assist. Weight bearing status:??NWB RLE Reason for your hospital stay Deann King is a 40 year old female s/p right foot I&D and HWR x3 at OSH (06/30, 07/02, 07/04)transferred on 07/06 for further management. Cultures with MSSA. NOW s/p R ankle/foot I&D + woundvac application with Dr. Olivera on 07/07/2021. Activity Your activity upon discharge: activity as tolerated Activity: Up with assist. Weight bearing status:??NWB RLE When to contact your care team Call Dr Olivera if you have any of the following: temperature greater than 101.3 or less than 96.5, increased shortness of breath, increased drainage, increased swelling, or increased pain. Wound care and dressings .Wound Care: Wound vac to remain in place @ 125mmHg, WOC performing Friday and Friday VAC changes Adult [facility] Follow-up and recommended labs and tests Follow up with Dr Camara or Morgan with Podiatry in 1-2 weeks. Clinic phone number is [phone] Follow up with Plastic Surgery in 2 weeks. Follow up with infectious disease 4-6 weeks. Follow-up Labs: Weekly CBC w diff, BMP, CRP. Please have labs faxed to ID clinic. Appointments on [facility] and[facility]or [facility] (with [facility] or [facility] provider or service). Call [phone] if you haven't heard regarding these appointments within 7 days of discharge. Diet Follow this diet upon discharge: Orders Placed This Encounter Regular Diet Adult Diet Follow this diet upon discharge: Orders Placed This Encounter Regular Diet Adult Diet Significant Results and Procedures Most Recent 3 CBC's:Recent Labs Lab Test 07/19/21 0819 07/17/21 0736 07/14/21 0530 WBC 4.9 5.8 4.9 HGB 9.9* 9.8* 9.6* MCV 94 93 95 PLT 152 157 167 Most Recent 3 BMP's:Recent Labs Lab Test 07/17/21 0736 07/16/21 0823 07/15/21 0609 07/14/21 0530 07/13/21 0540 07/11/21 0909 07/09/21 1222 NA 139 -- -- -- 139 -- 139 POTASSIUM 3.6 -- -- -- 3.9 -- 3.6 CHLORIDE 108 -- -- -- 106 -- 104 CO2 24 -- -- -- 26 -- 28 BUN 7 -- -- -- 11 -- 9 CR 0.60 0.66 0.64 < > 0.63 < > 0.55 ANIONGAP 7 -- -- -- 7 -- 7 MACARENA 9.1 -- -- -- 9.0 -- 9.2 GLC 102* -- -- -- 102* -- 117* < > = values in this interval not displayed. Most Recent 2 LFT's:Recent Labs Lab Test 07/17/21 0736 07/13/21 0540 AST 56* 50* ALT 42 31 ALKPHOS 157* 167* BILITOTAL 0.7 1.1 Most Recent 3 INR's:Recent Labs Lab Test 07/06/21 1534 01/11/20 2117 02/28/19 1557 INR 1.39* 1.14 0.92 Most Recent 6 Bacteria Isolates From Any Culture (See EPIC Reports for Culture Details):Recent Labs Lab Test 12/24/16 0750 12/07/16 1800 12/07/16 1455 12/07/16 1327 CULT <10,000 colonies/mL mixed urogenital evelina Susceptibility testing not routinely done Light growth Normal skin evelina Canceled, Test credited Test reordered as correct code >100,000 colonies/mL mixed urogenital evelina Susceptibility testing not routinely done Beta hemolytic Streptococcus group B isolated * Most Recent Urinalysis:Recent Labs Lab Test 07/09/21 1733 COLOR Yellow APPEARANCE Clear URINEGLC Negative URINEBILI Negative URINEKETONE Negative SG 1.018 UBLD Negative URINEPH 6.5 PROTEIN Negative NITRITE Negative LEUKEST Negative RBCU 1 WBCU 3 Most Recent ESR & CRP:Recent Labs Lab Test 07/19/21 0819 07/09/21 1222 07/08/21 0714 SED -- -- 102* CRP 15.0* < > 57.0* < > = values in this interval not displayed. Most Recent Anemia Panel:Recent Labs Lab Test 07/19/21 0819 07/07/21 1235 07/06/21 1534 01/13/20 0742 WBC 4.9 < > 5.7 -- HGB 9.9* < > 10.4* -- HCT 30.0* < > 32.4* 39.5 MCV 94 < > 98 -- PLT 152 < > 243 -- IRON -- -- 35 -- IRONSAT -- -- 12* -- FEB -- -- 288 -- B12 -- -- -- 870 FOLIC -- -- -- 30.2 < > = values in this interval not displayed. , Results for orders placed or performed during the hospital encounter of 07/06/21 US Abdomen Complete Narrative EXAMINATION: US ABDOMEN COMPLETE, 07/07/2021 3:33 PM COMPARISON: None. HISTORY: Elevated LFTs, recent encephalopathy, evaluate for ascites, changes c/w cirrhosis TECHNIQUE: The abdomen was scanned in standard fashion with specialized ultrasound transducer(s) using both leigh-scale and limited color Doppler techniques. FINDINGS: Liver: The liver is enlarged measuring 21.9 cm in the craniocaudal dimension. The liver demonstrates homogenous and echogenic liver parenchyma. No focal hepatic lesions, although limited by rib shadowing. The main portal vein is patent with antegrade flow. Gallbladder: There is no wall thickening, pericholecystic fluid, positive sonographic Mckeon's sign or evidence for cholelithiasis. Bile Ducts: Both the intra- and extrahepatic biliary system are of normal caliber. The common bile duct measures 2 mm in diameter. Pancreas: Visualized portions of the head and body of the pancreas are unremarkable. Kidneys: Both kidneys are of normal echotexture, without mass or hydronephrosis. The craniocaudal dimensions are: right- 12.1 cm, left- 11.9 cm. Spleen: The spleen is enlarged measuring 15.0 cm in sagittal dimension. Aorta and IVC: The visualized portions of the aorta and IVC are unremarkable. The proximal aorta measures 2.7 cm in diameter and the IVC measures 1.9 cm in diameter. Fluid: No evidence of ascites or pleural effusions. Impression IMPRESSION: Hepatosplenomegaly and diffuse hepatic steatosis. I have personally reviewed the examination and initial interpretation and I agree with the findings. KIMBERLY JACOBSON MD XR Chest 1 View Narrative EXAMINATION: XR CHEST 1 VIEW 07/13/2021 6:18 PM. COMPARISON: 02/28/2019 HISTORY: PICC line placement FINDINGS: Frontal view. Left arm PICC tip projects over the SVC. Stable cardiac silhouette. No pleural effusion or pneumothorax. No focal pulmonary opacity. Impression IMPRESSION: Left arm PICC tip projects over the SVC. I have personally reviewed the examination and initial interpretation and I agree with the findings. KIMBERLY JACOBSON MD XR Chest 1 View Narrative Exam: XR CHEST 1 VIEW, 07/17/2021 3:47 PM Indication: picc line placement. Comparison: 07/13/2021 Findings: Semiupright view of the chest demonstrates stable position of the left arm PICC line tip, projecting over higher cc. Stable cardiac silhouette. No acute pulmonary opacities, pneumothorax or pleural effusion. Impression Impression: Stable positioning of left upper extremity PICC line with tip projecting over the high SVC. No acute airspace opacities. I have personally reviewed the examination and initial interpretation and I agree with the findings. TK THOMAS MD Echo Complete Value LVEF 55-60% Narrative [id number]^DHITAL^[facility] [address] [place] [id number] Name: DEANN KING : 1980 Study Date: 07/08/2021 12:07 PM Age: 40 yrs Gender: Female Patient Location: [facility] Reason For Study: Endocarditis Ordering Physician: JAIME REA Performed By: Terri Pina BSA: 1.9 m2 Height: 66 in Weight: 180 lb HR: 66 BP: 135/75 mmHg Procedure Complete Portable Echo Adult. Interpretation Summary Global and regional left ventricular function is normal with an EF of 55-60%. Global right ventricular function is normal. The right ventricle is normal size. No significant valvular abnormalities. The estimated PA systolic pressure is 25 mmHg. IVC diameter <2.1 cm collapsing >50% with sniff suggests a normal RA pressure of 3 mmHg. There is no prior study for direct comparison. Left Ventricle Global and regional left ventricular function is normal with an EF of 55-60%. Left ventricular wall thickness is normal. Left ventricular size is normal. Left ventricular diastolic function is normal. Right Ventricle Global right ventricular function is normal. The right ventricle is normal size. Atria Both atria appear normal. Mitral Valve The mitral valve is normal. Trace mitral insufficiency is present. Aortic Valve The aortic valve is tricuspid. On Doppler interrogation, there is no significant stenosis or regurgitation. Tricuspid Valve The valve leaflets are not well visualized. Mild tricuspid insufficiency is present. The right ventricular systolic pressure is approximated at 21.5 mmHg plus the right atrial pressure. Pulmonic Valve The valve leaflets are not well visualized. Trace pulmonic insufficiency is present. Vessels Sinuses of Valsalva 3.0 cm. Ascending aorta 3.3 cm. IVC diameter <2.1 cm collapsing >50% with sniff suggests a normal RA pressure of 3 mmHg. Pericardium No pericardial effusion is present. Compared to Previous Study There is no prior study for direct comparison. MMode/2D Measurements & Calculations IVSd: 0.84 cm LVIDd: 4.6 cm LVIDs: 2.5 cm LVPWd: 0.94 cm FS: 45.1 % LV mass(C)d: 134.9 grams LV mass(C)dI: 70.5 grams/m2 Ao root diam: 3.0 cm asc Aorta Diam: 3.3 cm LVOT diam: 2.1 cm LVOT area: 3.5 cm2 RWT: 0.41 Doppler Measurements & Calculations MV E max yobani: 84.4 cm/sec MV A max yobani: 47.4 cm/sec MV E/A: 1.8 TR max yobani: 232.0 cm/sec TR max P.5 mmHg E/E' av.0 Lateral E/e': 6.3 Medial E/e': 9.6 Report approved by: Abdifatah Martinez 07/08/2021 02:15 PM Discharge Medications Current Discharge Medication List START taking these medications Details acetaminophen (TYLENOL) 325 MG tablet Take [...] Osteomyelitis of right ankle, unspecified type (H) ceFAZolin 2 g Inject 2 g into the vein every 8 hours Qty: 126 Bag, Refills: 0 Comments: End date per ID. At least 6 weeks total. Associated Diagnoses: Osteomyelitis of right ankle, unspecified type (H) clobetasol (TEMOVATE) 0.05 % external ointment Apply topically 2 times daily Apply to left arm rash Associated Diagnoses: Irritant dermatitis diphenhydrAMINE (BENADRYL) 25 MG capsule Take 1 capsule (25 mg) by mouth every 6 hours as needed foritching Associated Diagnoses: Irritant dermatitis fexofenadine (SRAVANTHI) 180 MG tablet Take 1 tablet (180 mg) by mouth daily as needed for allergies Associated Diagnoses: Irritant dermatitis !! hydrOXYzine (ATARAX) 25 MG tablet Take 1 tablet (25 mg) by mouth At Bedtime Associated Diagnoses: Anxiety !! hydrOXYzine (ATARAX) 25 MG tablet Take 1 tablet (25 mg) by mouth every 6 hours as needed for other or anxiety (adjuvant pain) Associated Diagnoses: Osteomyelitis of right ankle, unspecified type (H) methocarbamol (ROBAXIN) 750 MG tablet Take 1 tablet (750 mg) by mouth 3 times daily Associated Diagnoses: Osteomyelitis of right ankle, unspecified type (H) mineral oil-hydrophilic petrolatum (AQUAPHOR) external ointment Apply topically every 4 hours as needed for dry skin or irritation oxyCODONE (ROXICODONE) 5 MG tablet Take 1-2 tablets (5-10 mg) by mouth every 6 hours as needed for moderate to severe pain Qty: 40 tablet, Refills: 0 Associated Diagnoses: Osteomyelitis of right ankle, unspecified type (H) polyethylene glycol (MIRALAX) 17 g packet Take 17 g by mouth daily as needed for constipation Associated Diagnoses: Osteomyelitis of right ankle, unspecified type (H) senna-docusate (SENOKOT-S/PERICOLACE) 8.6-50 MG tablet Take 2 tablets by mouth 2 times daily Associated Diagnoses: Osteomyelitis of right ankle, unspecified type (H) thiamine (B-1) 100 MG tablet Take 1 tablet (100 mg) by mouth daily Associated Diagnoses: Osteomyelitis of right ankle, unspecified type (H) triamcinolone (KENALOG) 0.1 % external ointment Apply topically 2 times daily Apply to rash areas other than L arm Associated Diagnoses: Irritant dermatitis !! - Potential duplicate medications found. Please discuss with provider. CONTINUE these medications which have CHANGED Details gabapentin (NEURONTIN) 100 MG capsule Take 3 capsules (300 mg) by mouth At Bedtime Associated Diagnoses: Anxiety; Alcohol use disorder, severe, dependence (H) CONTINUE these medications which have NOT CHANGED Details buprenorphine (SUBUTEX) 8 MG SUBL sublingual tablet Place 1 tablet (8 mg) under the tongue 3 times daily Qty: 90 tablet, Refills: 0 Comments: JAMES: [id number] Associated Diagnoses: Opioid use disorder, severe, in sustained remission, on maintenance therapy (H) cholecalciferol 50 MCG (2000 UT) tablet Take 1 tablet (50 mcg) by mouth daily Qty: 90 tablet, Refills: 1 Associated Diagnoses: Alcohol abuse, continuous famotidine (PEPCID) 20 MG tablet Take 20 mg by mouth 2 times daily folic acid (FOLVITE) 1 MG tablet Take 1 tablet (1 mg) by mouth daily Qty: 90 tablet, Refills: 1 Associated Diagnoses: Alcohol use disorder, severe, dependence (H) lactulose (CEPHULAC) 20 GM packet Take 20 g by mouth 2 times daily levothyroxine (SYNTHROID/LEVOTHROID) 125 MCG tablet Take 1 tablet (125 mcg) by mouth every morning Qty: 90 tablet, Refills: 1 Associated Diagnoses: Hypothyroidism, unspecified type magnesium oxide (MAG-OX) 400 MG tablet Take 400 mg by mouth 2 times daily nicotine (NICODERM CQ) 14 MG/24HR [address] 1 patch onto the skin every 24 hours Qty: 28 patch, Refills: 11 Associated Diagnoses: Tobacco use disorder senna (SENOKOT) 8.6 MG tablet Take 2 tablets by mouth 2 times daily venlafaxine (EFFEXOR-XR) 150 MG 24 hr capsule Take 1 capsule (150 mg) by mouth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 diet. She is afebrile and has T max of 99.8. White count is 5.7. renal function is normal. CRP is pending. New blood cultures obtained today (07/06) and are in process. She continues to be on cefazolin 2 grams IV q 8h. ?? Procedures: - 06/30/21 - Right lateral ankle deep abscess I&D, Right lateral ankle excision of skin, subcutaneous tissue, and fascia, wound vac placement. During this procedure purulence was noted down to the deep fascia of the lateral ankle. There were subcutaneous tracts going both proximal anterior and distal anterior. Bone was not encountered or the lateral calcaneous plate. There was a 4 x 5 cm defect without skin and subcutaneous tissue without exposed bone. - 07/02/21 - Right lateral ankle I&D, right lateral calcaneus hardware removal and ankle wound vac exchange. With repeat debridement the wound extended down to the bone and the hardware. All 5 screws were removed and plate was removed. The peroneal tendon and calcaneous were exposed, The defect now measured 7x 4 cm with a depth of 2 cm. ?? - 07/04/21 - Right lateral ankle I&D and wound vac replacement. - 07/07/21 ([facility] - Right ankle I&D and wound vac exchange - 07/11/21 - Right ankle I&D Physical Exam: BP 121/68 (BP Location: Right arm) Pulse 68 Temp 98.3 ??F (36.8 ??C) (Oral) Resp 16 Ht 1.676m (5' 6) Wt 79.4 kg (175 lb) LMP 05/24/2016 (Approximate) SpO2 100% BMI 28.25 kg/m?? Exam: GENERAL: Alert, oriented , no acute distress. Pleasant and conversant. HEAD: Normocephalic and atraumatic Lungs: breathing comfortably on room air EYES: Eyes grossly normal to inspection, conjunctivae and sclerae normal EXT: Right ankle with new wound vac. PSYCHIATRIC: Mood and affect congruent. PICC left arm: Large scaly rash near adhesive dressing border faded and resolving. SKIN: Maculopapular/wheal like rash only in dependent areas at the back of the legs has almost completely disappeared. Laboratory Data: Culture Date Value Ref Range Status 07/12/2021 No Growth Final 07/12/2021 No Growth Final 07/11/2021 No anaerobic organisms isolated Final 07/11/2021 1+ Staphylococcus simulans (A) Final Comment: Not isolated or reported on routine aerobic culture Susceptibilities not routinely done 07/11/2021 No Growth Final 07/11/2021 No growth after 9 days Preliminary 07/09/2021 No Growth Final 07/09/2021 No Growth Final 07/07/2021 No Growth Final 07/07/2021 No Growth Final 07/07/2021 No anaerobic organisms isolated Final 07/07/2021 1+ Staphylococcus simulans (A) Final Comment: Susceptibilities not routinely done 07/07/2021 No anaerobic organisms isolated Final 07/07/2021 1+ Normal evelina Final 07/07/2021 No anaerobic organisms isolated Final 07/07/2021 1+ Normal evelina Final 07/06/2021 No Growth Final 07/06/2021 No Growth Final Creatinine Date Value Ref Range Status 07/17/2021 0.60 0.52 - 1.04 mg/dL Final 07/16/2021 0.66 0.52 - 1.04 mg/dL Final 07/15/2021 0.64 0.52 - 1.04 mg/dL Final 07/14/2021 0.62 0.52 - 1.04 mg/dL Final 07/13/2021 0.63 0.52 - 1.04 mg/dL Final 01/11/2020 0.61 0.52 - 1.04 mg/dL Final 04/02/2019 0.65 0.52 - 1.04 mg/dL Final 04/01/2019 0.76 0.52 - 1.04 mg/dL Final 02/28/2019 0.72 0.52 - 1.04 mg/dL Final 01/20/2019 0.61 0.52 - 1.04 mg/dL Final WBC Date Value Ref Range Status 01/11/2020 4.9 4.0 - 11.0 10e9/L Final 04/01/2019 4.0 4.0 - 11.0 10e9/L Final 02/28/2019 2.3 (L) 4.0 - 11.0 10e9/L Final 01/20/2019 4.0 4.0 - 11.0 10e9/L Final 12/18/2018 3.2 (L) 4.0 - 11.0 10e9/L Final WBC Count Date Value Ref Range Status 07/19/2021 4.9 4.0 - 11.0 10e3/uL Final 07/17/2021 5.8 4.0 - 11.0 10e3/uL Final 07/14/2021 4.9 4.0 - 11.0 10e3/uL Final 07/13/2021 4.9 4.0 - 11.0 10e3/uL Final 07/12/2021 6.6 4.0 - 11.0 10e3/uL Final Hemoglobin Date Value Ref Range Status 07/19/2021 9.9 (L) 11.7 - 15.7 g/dL Final 01/11/2020 13.6 11.7 - 15.7 g/dL Final Platelet Count Date Value Ref Range Status 07/19/2021 152 150 - 450 10e3/uL Final 01/11/2020 119 (L) 150 - 450 10e9/L Final Lab Results Component Value Date NA 139 07/17/2021 BUN 7 07/17/2021 CO2 24 07/17/2021 CRP Inflammation Date Value Ref Range Status 07/19/2021 15.0 (H) 0.0 - 8.0 mg/L Final 07/18/2021 23.0 (H) 0.0 - 8.0 mg/L Final 07/16/2021 33.0 (H) 0.0 - 8.0 mg/L Final 07/14/2021 40.0 (H) 0.0 - 8.0 mg/L Final 07/12/2021 57.0 (H) 0.0 - 8.0 mg/L Final 08/30/2006 8.6 (H) 0.0 - 8.0 mg/L Final Alyce Israel MSW - 07/21/2021 11:36 AM CDT Care Management Discharge Note Discharge Date: 07/22/2021 Discharge Disposition: [facility] Discharge Services: PT, OT, IV ABX, Wound Care Discharge DME: Wound vac Discharge Transportation: hospital will provide Private pay costs discussed: Not applicable PAS Confirmation Code: [id number] Patient/family educated on Medicare website which has current facility and service quality ratings: Yes, TCU Education Provided on the Discharge Plan: yes Persons Notified of Discharge Plans: pt, ortho pen or pencil assembly machine operatorDr Butch Ferrera Patient/Family in Agreement with the Plan: yes Handoff Referral Completed: Yes Additional Information: JACKIE met with pt and reviewed discharge plan, including referral to Senior Linkage line for PAS/RR. Ptwas very groggy so may not recall conversation. SW updated pen or pencil assembly machine operator Adam and Dr. Rae with anticipated discharge to TCU today @ 1:30. YADIRA Diamond MSW [facility] Friday Paying Teller Text paging available through [employer] on [employer] - search SOCIAL WORK INTERNET MARKETING SPECIALIST PAGER [phone] Friday ONLY! INTERNET MARKETING SPECIALIST COVERAGE AFTER 1600 Alyce Israel MSW - 07/21/2021 8:59 AM CDT Care Management Follow Up Length of Stay (days): 15 Expected Discharge Date: 07/22/2021 Concerns to be Addressed: Patient plan of care discussed at interdisciplinary rounds: No Anticipated Discharge Disposition: Home Anticipated Discharge Services: TCU PT/OT Anticipated Discharge DME: To be determined Patient/family educated on Medicare website which has current facility and service quality ratings: Yes. Education Provided on the Discharge Plan: yes Patient/Family in Agreement with the Plan: yes Referrals Placed by CM/JACKIE: Pt on wait list for [facility] Private pay costs discussed: Not applicable Additional Information: SW called [facility], was told they do not have any anticipated discharges over weekend. They will contact JACKIE should something change and a bed become available. ADDENDUM 10:23: Dynamic Etching Processor informed by Leslie Parikh, animal rehabilitator that there may be a discharge from TCU this afternoon and could possibly accept pt for admissions at 1:30. She is requesting Rapid Covid Test. JACKIE informed Ortho pen or pencil assembly machine operator [place], who will request rapid COVID Test. JACKIE completed PAS/RR on line: [id number]. Pt updated. YADIRA Diamond MSW [facility] Friday Paying Teller Text paging available through [employer] on [place] [employer] - search SOCIAL WORK INTERNET MARKETING SPECIALIST PAGER [phone] Friday ONLY! INTERNET MARKETING SPECIALIST COVERAGE AFTER 1600 Paulino Ybarra RN - 07/21/2021 7:51 AM CDT A/Ox's 4. Pt rated pain as tolerable. Oxycodone given for pain control. Dressing CDI. Pt has a WV with scant output. Pt reported numbness in toes 3-5 RLE. Tolerated regular diet. Pt declined her Lactulose. Pt had x1 BM in evenings and 8 during the day per report. Denied any nausea, CP, SOB, lightheadedness or dizziness. Voiding without pain or difficulty. Pt has a Picc line for Abx. Pt up ind to the commode. Resting in bed at this time with call light in reach. Able to make needs known. Plan is [facility]. Jaime Rae MD - 07/20/2021 10:56 AM CDT [facility] Medicine Progress Note - Hospitalist Service, ONUR TEAM 17 Date of Admission: 07/06/2021 Assessment & Plan 40 year old female??with past medical history significant for opioid use disorder,??alcohol use disorder,??HCV, hypothyroidism, depression, anxiety, and tobacco abuse??admitted on 07/06/21 from [facility] for further care of R ankle osteomyelitis by Orthopedics, Plastics, and Infectious Disease.? Today's changes: 07/20/2021 Overall doing better. Rash, pruritus: improving. Pain controlled. No new concern/changes by me Aw tcu Ortho, ID, Dermatology, WOCN- following. 07/19: Per patient request: Increased Subutex dose to 8 mg 3 times daily, APPLICATION INTEGRATION ARCHITECT dose. Schedule Robaxin 750 3 times daily. Adjusted gabapentin to 300 mg at bedtime. Hold for sedation. 07/18: Per ID: --Stop vancomycin and zosyn; start cefazolin 2g Q8H - Please check WBC and CRP the next 2-3 days to make sure there isn't a rebound with switching therapy ?? # R ankle osteomyelitis?? # Ankle pain and immobility Presented to OSH with worsening R ankle pain and unable to walk x 1 week on 06/28.?MRI 06/29 w/ extensive tibiotalar erosions w/ large joint effusion and synovitis, diffuse muscle and superficial softtissue edema.?S/p calcaneal hardware removal??and underwent??I&D x 3. ??Arthrocentesis attempted there without fluid retrieval. ??Wound cx positive for MSSA. ??Has exposed bone and tendon now with wound vac in place.? Discussed with ID on 07/12. Having Temp 101. Wound vac has been removed. Antibiotics broadened to Zosyn on 07/12/2021. Also on Vancomycin on 07/11/2021 Ancef discontinued on 07/11. No respiratory, GI, symptoms/signs Wound culture from 07/11 growing Staph simulans Followed by Orthopedics, and ID - Antibiotics plan per ID. See ID note. - Continue wound vac. WOCN consult. ?? - Pain control: -Continue??APPLICATION INTEGRATION ARCHITECT??Suboxone 8mg tid ??; scheduled APAP 975mg TID, Gabapentin 300mg HS, Robaxin 750mg TID, and oxycodone 5-10mg Q6H PRN. ?? 07/07/2021: Status post IRRIGATION AND DEBRIDEMENT, FOOT and ankle, wound vac exchange by Dr. Olivera. ??EBL: 25 ml. Per Ortho: Okay to resume DVT prophylaxis on postop day 1. ??Recommending aspirin 162 mg every day. ??Follow-up Intra-Op cultures. NWB on the RLE. ?? # MSSA Staph bacteremia??- Blood cx positive at OSH. ??Initially treated with Vanc/Zosyn and transitioned to Ancef. ??TTE 06/29 neg for vegetation. ??CRP elevated at 65, increased from previous at OSH. Sed rate 97. -IV Ancef for now, as above -Follow-up blood cultures -TTE: EF: 55-60%, no vegetation reported.?? -Trend CRP - Monitor??vitals. Trend fever.? # Rash: Blanchable rash on the both legs left>right. Right arm,and around picc line. Picture taken. - Dermatology consulted. See recommendations. Appreciate input. -Topical steroids, antiallergy pills as needed. Rash improving. ?? # HCV # Transaminitis??- improving.?? # Alcohol use disorder.?? HCV quant [id number]??at OSH. ??AST 117, ALT 44, and AP 213 on 07/05. ??Tbili 1.6. ??Albumin 2.9. ??INR 1.39. ??Started on Lactulose and Spironolactone at OSH; discussed with patient, does not recall being prescribed these meds prior to admission. ??On admission patient had a duarte in place for monitoring urine output. Removed. Currently voiding well. - Continue Lactulose for now - Follow-up CMP- improving. - US abdomen -Hepatosplenomegaly and diffuse hepatic steatosis. - follow up with Hepatology outpatient?? - Alcohol abstinence. ?? # Acute Encephalopathy??- Per chart review, patient somnolent on admission and with periods of confusion early in admission. ??[place]lejo to be??toxic vs metabolic??2/2 ?withdrawal, infection, sepsis. ??Utoxpositive only for cannabinoids. ??Started on Lactulose at OSH. Patient intermittently sleepy??on 07/15 with conversation, reports she did not sleep well last night. Resolved. - Monitor for sedation with pain meds, minimize narcotics. Reduced Suboxone frequency on 07/16, - Narcan prn - Will continue Lactulose as above? # Hypokalemia # Hypomagnesemia?? In setting of sepsis, poor PO intake at OSH. ?? -Replace per protocol. ?? # Hypothyroidism??- Continue Levothyroxine 125mcg QAM. ?? #??Hx opioid use disorder?? # Chronic pain In remission, has been successfully managed on??buprenorphine??since 2009. ??On buprenorphine 8 mg 3times daily.-See above for rest. # Pressure ulcers R buttocks, gluteal fold??- Noted on admission??at OSH to have skin redness at gluteal fold between thigh and buttocks.?- WOCN consult. - Continue wound cares ? # Anemia??- Hgb 9.9. 6/2. ??Possibly??acute blood loss plus??chronic illness, liver dysfunction. ?? - ??iron 35. - Continue folate supplementation ?? # Tobacco abuse??- Nicotine replacement per patient preference ?? # Indwelling duarte:??07/08:??discontinued duarte Urinating well with no significant retention. Monitor PVR.? Diet: Regular Diet Adult Diet Diet Snacks/Supplements Adult: Ensure Enlive; Between Meals DVT Prophylaxis: per Ortho. ??ASA 162mg qD??and mechanical while in the hospital Duarte Catheter: Not present Central Lines: PRESENT PICC Single Lumen Left-Site Assessment: WDL Cardiac Monitoring: None Code Status: Full Code Disposition Plan Expected Discharge: 07/22/2021 Likely TCU. Anticipated discharge location: Awaiting care coordination huddle Delays: The patient's care was discussed with the Bedside Nurse, Sql Server Consultant/Paying Teller and Patient. Jaime Rae MD Hospitalist Service, [facility] TEAM [address] [place] [address] Securely message with the [employer] (learn more here) Text page via [facility] Paging/Directory Please see signed in provider for up to date coverage information Clinically Significant Risk Factors Present on Admission Interval History Interval events reviewed. States doing overall better Pain controlled No fever. Chills No NVD No cough or cp or sob. Teresa urethral pain: Better No other new or acute medical concern Data reviewed today: I reviewed all medications, new labs and imaging results over the last 24 hours. I personally reviewed no images or EKG's today. Physical Exam Vital Signs: Temp: 99.3 ??F (37.4 ??C) Temp src: Oral BP: 125/71 Pulse: 73 Resp: 16 SpO2: 94 % O2 Device: None (Room air) Weight: 175 lbs 0 oz General Appearance: Awake, interactive, NAD Respiratory: Normal work of breathing. RA. Cardiovascular: RRR GI: Soft. NT. ND. Extremities: R ankle wrapped. See media for pics. Skin: Rash around picc, extremities- eczematous, scratch sow. Neuro: Grossly non focal. Others: Stable mood. Data Recent Labs Lab 07/19/21 0819 07/17/21 0736 07/16/21 0823 07/15/21 0609 07/14/21 0530 WBC 4.9 5.8 -- -- 4.9 HGB 9.9* 9.8* -- -- 9.6* MCV 94 93 -- -- 95 PLT 152 157 -- -- 167 NA -- 139 -- -- -- POTASSIUM -- 3.6 -- -- -- CHLORIDE -- 108 -- -- -- CO2 -- 24 -- -- -- BUN -- 7 -- -- -- CR -- 0.60 0.66 0.64 0.62 ANIONGAP -- 7 -- -- -- MACARENA -- 9.1 -- -- -- GLC -- 102* -- -- -- ALBUMIN -- 2.5* -- -- -- PROTTOTAL -- 8.1 -- -- -- BILITOTAL -- 0.7 -- -- -- ALKPHOS -- 157* -- -- -- ALT -- 42 -- -- -- AST -- 56* -- -- -- No results found for this or any previous visit (from the past 24 hour(s)). Medications ??? acetaminophen 975 mg Oral TID ??? aspirin 162 mg Oral Daily ??? buprenorphine 8 mg Sublingual TID ??? ceFAZolin 2 g Intravenous Q8H ??? clobetasol Topical BID ??? famotidine 20 mg Oral BID ??? fexofenadine 180 mg Oral Daily ??? folic acid 1 mg Oral Daily ??? gabapentin 300 mg Oral At Bedtime ??? hydrOXYzine 25 mg Oral At Bedtime ??? lactulose 20 g Oral BID ??? levothyroxine 125 mcg Oral QAM AC ??? methocarbamol 750 mg Oral TID ??? nicotine 1 patch Transdermal Daily ??? nicotine Transdermal Q8H ??? polyethylene glycol 17 g Oral Daily ??? senna-docusate 2 tablet Oral BID ??? sodium chloride (PF) 10-40 mL Intracatheter Q7 Days ??? thiamine 100 mg Oral Daily ??? triamcinolone Topical BID ??? venlafaxine 300 mg Oral Daily Emily Macias RN - 07/20/2021 9:39 AM CDT Images from the original note were not included. [facility] Nurse Inpatient Assessment Today's Assessment: Right lateral ankle wound, right buttock/thigh friction wounds. Patient History (according to provider note(s): Per [...] 07/17 Right lateral ankle 07/20 Last photo: 07/19/2021 Wound due to: Surgical Wound Wound history/plan [...] place? IV antibiotics 07/11: Received page from PORSHA Morris. Concern for continued fevers. Requested vac be [...] wound with help of 4% topical lidocaine. 07/20: Wound base: 100 % granulation tissue Palpation of the wound bed: normal Drainage: scant Description of drainage: serosanguinous Measurements (length x width x depth, in cm) 6.3 x 4.5 x 1.5 cm Tunneling from 1-2 o'clock with max depth of 1.5 cm Undermining N/A Periwound skin: Intact Color: pink Temperature: normal Odor: none Pain: moderate, burning Pain intervention prior to dressing change: oral Dilaudid Treatment goal: Heal STATUS: granulating Supplies ordered: ordered white foam to be placed in tunnel and silver foam for remainder of wound Number of foam pieces removed from a wound (excluding foam for bridge) : 0, VAC not in place Verified this matched the number of foam pieces applied last dressing change: Yes Number of foam pieces packed into wound (excluding foam for bridge) : 1 white, 1 silver TREATMENT PLAN: Negative pressure wound therapy plan: Wound location: Right lateral ankle Change Days: Fri/Fri/Fri by WOC RN Supplies (including all accessories) used: medium Silver (Ag) impregnated foam , 1 white foam Cleanse with Vashe prior to replacing VAC Suction setting: -125 Methods used: Window paned all periwound skin with vac drape prior to applying sponge tafe teacher to assess integrity of dressing and ensure [...] can be reconnected within 2 hours Orders: Written RECOMMEND PRIMARY TEAM ORDER: None, at this time Education provided: plan of care and wound progress Discussed plan of care with: Patient and Nurse WO Nurse follow-up plan:Friday/ Notify WO if wound(s) deteriorate. Nursing to notify the Provider(s) and re-consult the [facility] Nurse if new skin concern. DATA: Current support surface: Standard Atmos Air mattress Containment of urine/stool: Continent of bladder and Continent of bowel BMI: Body mass index is 28.25 kg/m??. Active Diet Order: Orders Placed This Encounter Regular Diet Adult Diet Diet Output: I/O last 3 completed shifts: In: - Out: 5 [Drains:5] Labs: Recent Labs Lab 07/19/21 0819 07/18/21 0737 07/17/21 0736 ALBUMIN -- -- 2.5* HGB 9.9* -- 9.8* WBC 4.9 -- 5.8 CRP 15.0* < > -- < > = values in this interval not displayed. Pressure Injury Risk Assessment: Maxim Risk Assessment Sensory Perception: 3-->slightly limited Moisture: 4-->rarely moist Activity: 3-->walks occasionally Mobility: 3-->slightly limited Nutrition: 3-->adequate Friction and Shear: 3-->no apparent problem Maxim Score: 19 Emily Macias RN BSN CWOCN Dept. Pager: [phone] Dept. Office Number: [phone] Jaime Rae MD - 07/19/2021 12:42 PM CDT [facility] Medicine Progress Note - Hospitalist Service, [facility] TEAM 17 Date of Admission: 07/06/2021 Assessment & Plan 40 year old female??with past medical history significant for opioid use disorder,??alcohol use disorder,??HCV, hypothyroidism, depression, anxiety, and tobacco abuse??admitted on 07/06/21 from [facility] for further care of R ankle osteomyelitis by Orthopedics, Plastics, and Infectious Disease.? Today's changes: 07/19/2021 Overall doing better. Rash, pruritus: improving. Per patient request: Increased Subutex dose to 8 mg 3 times daily, APPLICATION INTEGRATION ARCHITECT dose. Schedule Robaxin 750 3 times daily. Adjusted gabapentin to 300 mg at bedtime. Hold for sedation. dw WOCN, will check periurethral area for pain. Patient reports pain better today. Ortho, ID, Dermatology, WOCN- following. 07/18: Per ID: -- Stop vancomycin and zosyn; start cefazolin 2g Q8H - Please check WBC and CRP the next 2-3 days to make sure there isn't a rebound with switching therapy ?? No other changes made by me. # R ankle osteomyelitis?? # Ankle pain and immobility Presented to OSH with worsening R ankle pain and unable to walk x 1 week on 06/28.?MRI 06/29 w/ extensive tibiotalar erosions w/ large joint effusion and synovitis, diffuse muscle and superficial softtissue edema.?S/p calcaneal hardware removal??and underwent??I&D x 3. ??Arthrocentesis attempted there without fluid retrieval. ??Wound cx positive for MSSA. ??Has exposed bone and tendon now with wound vac in place.? Discussed with ID on 07/12. Having Temp 101. Wound vac has been removed. Antibiotics broadened to Zosyn on 07/12/2021. Also on Vancomycin on 07/11/2021 Ancef discontinued on 07/11. No respiratory, GI, symptoms/signs Wound culture from 07/11 growing Staph simulans Followed by Orthopedics, and ID - Antibiotics plan per ID. See ID note. - Continue wound vac. WOCN consult. ?? - Pain control: -Continue??APPLICATION INTEGRATION ARCHITECT??Suboxone 8mg tid ??; scheduled APAP 975mg TID, Gabapentin 300mg HS, Robaxin 750mg TID, and oxycodone 5-10mg Q6H PRN. ?? 07/07/2021: Status post IRRIGATION AND DEBRIDEMENT, FOOT and ankle, wound vac exchange by Dr. Olivera. ??EBL: 25 ml. Per Ortho: Okay to resume DVT prophylaxis on postop day 1. ??Recommending aspirin 162 mg every day. ??Follow-up Intra-Op cultures. NWB on the RLE. ?? # MSSA Staph bacteremia??- Blood cx positive at OSH. ??Initially treated with Vanc/Zosyn and transitioned to Ancef. ??TTE 06/29 neg for vegetation. ??CRP elevated at 65, increased from previous at OSH. Sed rate 97. -IV Ancef for now, as above -Follow-up blood cultures -TTE: EF: 55-60%, no vegetation reported.?? -Trend CRP - Monitor??vitals. Trend fever.? # Rash: Blanchable rash on the both legs left>right. Right arm,and around picc line. Picture taken. - Dermatology consulted. See recommendations. Appreciate input. -Topical steroids, antiallergy pills as needed. Rash improving. ?? # HCV # Transaminitis??- improving.?? # Alcohol use disorder.?? HCV quant [id number]??at OSH. ??AST 117, ALT 44, and AP 213 on 07/05. ??Tbili 1.6. ??Albumin 2.9. ??INR 1.39. ??Started on Lactulose and Spironolactone at OSH; discussed with patient, does not recall being prescribed these meds prior to admission. ??On admission patient had a duarte in place for monitoring urine output. Removed. Currently voiding well. - Continue Lactulose for now - Follow-up CMP- improving. - US abdomen -Hepatosplenomegaly and diffuse hepatic steatosis. - follow up with Hepatology outpatient?? - Alcohol abstinence. ?? # Acute Encephalopathy??- Per chart review, patient somnolent on admission and with periods of confusion early in admission. ??[place] to be??toxic vs metabolic??2/ ?withdrawal, infection, sepsis. ??Utoxpositive only for cannabinoids. ??Started on Lactulose at OSH. Patient intermittently sleepy??on 07/15 with conversation, reports she did not sleep well last night. Resolved. - Monitor for sedation with pain meds, minimize narcotics. Reduced Suboxone frequency on 07/16, - Narcan prn - Will continue Lactulose as above? # Hypokalemia # Hypomagnesemia?? In setting of sepsis, poor PO intake at OSH. ?? -Replace per protocol. ?? # Hypothyroidism??- Continue Levothyroxine 125mcg QAM. ?? #??Hx opioid use disorder?? # Chronic pain In remission, has been successfully managed on??buprenorphine??since 2009. ??On buprenorphine 8 mg 3times daily.-See above for rest. # Pressure ulcers R buttocks, gluteal fold??- Noted on admission??at OSH to have skin redness at gluteal fold between thigh and buttocks.?- WOCN consult. - Continue wound cares ? # Anemia??- Hgb 9.9. 6/2. ??Possibly??acute blood loss plus??chronic illness, liver dysfunction. ?? - ??iron 35. - Continue folate supplementation ?? # Tobacco abuse??- Nicotine replacement per patient preference ?? # Indwelling duarte:??07/08:??discontinued duarte Urinating well with no significant retention. Monitor PVR.? Diet: Regular Diet Adult Diet Diet Snacks/Supplements Adult: Ensure Enlive; Between Meals DVT Prophylaxis: per Ortho. ??ASA 162mg qD??and mechanical while in the hospital Duarte Catheter: Not present Central Lines: PRESENT PICC Single Lumen Left-Site Assessment: WDL Cardiac Monitoring: None Code Status: Full Code Disposition Plan Expected Discharge: 07/20/2021 Likely TCU. Anticipated discharge location: Awaiting care coordination huddle Delays: The patient's care was discussed with the Bedside Nurse, Sql Server Consultant/Paying Teller and Patient. Jaime Rae MD Hospitalist Service, [facility] TEAM [address] [place] [address] Securely message with the DocsInk Console (learn more here) Text page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 cultured and positive for MSSA. Antibiotics were narrowed to IV Ancef. The patient was taken to the OR on 06/30/[address] [facility]n [facility] and had a irrigation and debridement of right lateral ankle abscess and wound vac placement. The patient then returned to the OR on 07/02/21 for a repeat irrigation and debridement, lateralcalcaneus hardware removal, and wound vac exchanged. On 07/04/21, patient returned to OR for repeat I&D and wound vac exchange (see procedures below). The patient was then transferred [facility] the [facility] on 07/06/21 for further management due to exposed peroneal tendons and need for possible coverage. Her outside blood cultures became negative ob 06/30/21. ?? Here, the patient states that she has pain and sensitivity over the lateral ankle. She denies feversor chills. She states that the redness over the right lower extremity has improved from previous. She denies other joint or extremity pain. She has been tolerating diet. She is afebrile and has T max of 99.8. White count is 5.7. renal function is normal. CRP is pending. New blood cultures obtained today (07/06) and are in process. She continues to be on cefazolin 2 grams IV q 8h. ?? Procedures: - 06/30/21 - Right lateral ankle deep abscess I&D, Right lateral ankle excision of skin, subcutaneous tissue, and fascia, wound vac placement. During this procedure purulence was noted down to the deep fascia of the lateral ankle. There were subcutaneous tracts going both proximal anterior and distal anterior. Bone was not encountered or the lateral calcaneous plate. There was a 4 x 5 cm defect without skin and subcutaneous tissue without exposed bone. - 07/02/21 - Right lateral ankle I&D, right lateral calcaneus hardware removal and ankle wound vac exchange. With repeat debridement the wound extended down to the bone and the hardware. All 5 screws were removed and plate was removed. The peroneal tendon and calcaneous were exposed, The defect now measured 7x 4 cm with a depth of 2 cm. ?? - 07/04/21 - Right lateral ankle I&D and wound vac replacement. - 07/07/21 ([facility] - Right ankle I&D and wound vac exchange Physical Exam: BP 139/75 (BP Location: Right arm) Pulse 72 Temp 99.8 ??F (37.7 ??C) (Oral) Resp 17 Ht 1.676m (5' 6) Wt 79.4 kg (175 lb) LMP 05/24/2016 (Approximate) SpO2 95% BMI 28.25 kg/m?? Exam: GENERAL: Alert, oriented , no acute distress. Pleasant and conversant. HEAD: Normocephalic and atraumatic Lungs: breathing comfortably on room air EYES: Eyes grossly normal to inspection, conjunctivae and sclerae normal EXT: Right ankle with new wound vac (was present during end of change). PSYCHIATRIC: Mood and affect congruent. PICC left arm: Large scaly rash near adhesive dressing border. Itchy. SKIN: Maculopapular/wheal like rash only in dependent areas at the back of the legs. Regressed from previous marking line. Laboratory Data: Culture Date Value Ref Range Status 07/12/2021 No Growth Final 07/12/2021 No Growth Final 07/11/2021 No anaerobic organisms isolated after 2 days Preliminary 07/11/2021 1+ Staphylococcus simulans (A) Preliminary Comment: Not isolated or reported on routine aerobic culture Susceptibilities not routinely done 07/11/2021 No Growth Final 07/11/2021 No growth after 6 days Preliminary 07/09/2021 No Growth Final 07/09/2021 No Growth Final 07/07/2021 No Growth Final 07/07/2021 No Growth Final 07/07/2021 No anaerobic organisms isolated Final 07/07/2021 1+ Staphylococcus simulans (A) Final Comment: Susceptibilities not routinely done 07/07/2021 No anaerobic organisms isolated Final 07/07/2021 1+ Normal evelina Final 07/07/2021 No anaerobic organisms isolated Final 07/07/2021 1+ Normal evelina Final 07/06/2021 No Growth Final 07/06/2021 No Growth Final Creatinine Date Value Ref Range Status 07/17/2021 0.60 0.52 - 1.04 mg/dL Final 07/16/2021 0.66 0.52 - 1.04 mg/dL Final 07/15/2021 0.64 0.52 - 1.04 mg/dL Final 07/14/2021 0.62 0.52 - 1.04 mg/dL Final 07/13/2021 0.63 0.52 - 1.04 mg/dL Final 01/11/2020 0.61 0.52 - 1.04 mg/dL Final 04/02/2019 0.65 0.52 - 1.04 mg/dL Final 04/01/2019 0.76 0.52 - 1.04 mg/dL Final 02/28/2019 0.72 0.52 - 1.04 mg/dL Final 01/20/2019 0.61 0.52 - 1.04 mg/dL Final WBC Date Value Ref Range Status 01/11/2020 4.9 4.0 - 11.0 10e9/L Final 04/01/2019 4.0 4.0 - 11.0 10e9/L Final 02/28/2019 2.3 (L) 4.0 - 11.0 10e9/L Final 01/20/2019 4.0 4.0 - 11.0 10e9/L Final 12/18/2018 3.2 (L) 4.0 - 11.0 10e9/L Final WBC Count Date Value Ref Range Status 07/17/2021 5.8 4.0 - 11.0 10e3/uL Final 07/14/2021 4.9 4.0 - 11.0 10e3/uL Final 07/13/2021 4.9 4.0 - 11.0 10e3/uL Final 07/12/2021 6.6 4.0 - 11.0 10e3/uL Final 07/10/2021 7.9 4.0 - 11.0 10e3/uL Final Hemoglobin Date Value Ref Range Status 07/17/2021 9.8 (L) 11.7 - 15.7 g/dL Final 01/11/2020 13.6 11.7 - 15.7 g/dL Final Platelet Count Date Value Ref Range Status 07/17/2021 157 150 - 450 10e3/uL Final 01/11/2020 119 (L) 150 - 450 10e9/L Final Lab Results Component Value Date NA 139 07/17/2021 BUN 7 07/17/2021 CO2 24 07/17/2021 CRP Inflammation Date Value Ref Range Status 07/18/2021 23.0 (H) 0.0 - 8.0 mg/L Final 07/16/2021 33.0 (H) 0.0 - 8.0 mg/L Final 07/14/2021 40.0 (H) 0.0 - 8.0 mg/L Final 07/12/2021 57.0 (H) 0.0 - 8.0 mg/L Final 07/10/2021 59.0 (H) 0.0 - 8.0 mg/L Final 08/30/2006 8.6 (H) 0.0 - 8.0 mg/L Final Jah Thompson MD - 07/18/2021 6:18 AM CDT Orthopaedic Surgery Progress Note 07/18/2021 S: VSS, AF. She states that the ankle continues to improve. She notes that it is most sore in the AMwhen waking up. Tolerating diet. Voiding spontaneously. Ambulating independently. Working with PT/OT. Denies fevers or chills. Dermatology consulted yesterday for a rash involving the bilateral lower extremities. They feel thatit is secondary to urticaria. Rash is improving. O: Temp: 98.7 ??F (37.1 ??C) Temp src: Oral BP: (!) 138/94 Pulse: 67 Resp: 16 SpO2: 95 % O2 Device: None (Room air) Exam: Gen: No acute distress, resting comfortably in bed. CV: wwp Resp: Non-labored breathing MSK: Lower Extremity: Inspection: GUS wrap, kerlix. No TTP about the calf. No erythema extending up the leg. Rash about bilateral posterior thighs appears improved. Can dorsiflex and Motor: Able to fire hip flexion, quad, hamstring, tibialis anterior, gastroc/soleus, FHL, EHL Sensory: SILT to superficial peroneal, deep peroneal, saphenous, sural, and tibial nerve distributions. Circulation: foot warm and well perfused. 2+ dp pulse is palpable. Recent Labs Lab 07/17/21 0736 07/16/21 0908 07/14/21 0530 07/13/21 0540 07/12/21 0657 WBC 5.8 -- 4.9 4.9 6.6 HGB 9.8* -- 9.6* 10.1* 9.9* PLT 157 -- 167 175 216 CRP -- 33.0* 40.0* -- 57.0* Culture results: Blood cultures: 07/09 NGTD, 07/12 NGTD Wound tissue cultures: 07/07 staph simulans, 07/11 staph simulans Assessment: Deann King is a 40 year old female s/p??right foot I&D and HWR x3 at OSH (06/30,07/02, 07/04) transferred??on 07/06 for further management. Cultures with MSSA. NOW s/p R ankle/foot I&D + wound vac application with Dr. Olivera on 07/07/2021. Wound cultures positive for 1+ staph simulans. The patient was seen by plastic surgery who is recommending continued wound vac with outpatientfollow up in 2 weeks for a wound check. They recommended discharge with the wound vac. The patient has had persistent fevers and 07/12 the wound vac was discontinued and transitioned to a vashe dressing. Wound cultures with staph simulans. Patient with rash on BLE, likely reaction to antibiotics. Defer to medicine and ID team. Spoke with wound care yesterday and they patient may have the wound vac replaced per wound care recommendations. Will plan to have the wound vac placed today with WOC. Today: - Wound vac placement at the bedside with WOC, appreciate recommendations. - Continue antibiotics per ID and primary team. Plan: Primary: Medicine Activity: Up with assist. Weight bearing status: NWB RLE Antibiotics: IV Ancef; appreciate ID recommendations Diet: Begin with clear fluids and progress diet as tolerated. DVT prophylaxis: ASA 162mg qD and mechanical while in the hospital Elevation: Elevate RLE on pillows as much as possible. Wound Care: Wound vac to remain in place @ 125mmHg, WOC to place on 07/18. Pain management: transition from IV to orals as tolerated. X-rays: No additional imaging needed at this time Physical Therapy: ROM, ADL's. Occupational Therapy: ADL's. Labs: Trend inflammatory labs Cultures: Wound culture positive for 1+ staph simulans. Blood cultures remain no growth to date. Follow-up: Follow up as an outpatient in 2 weeks with plastic surgery. Follow up either with Dr. Treadwell or with Podiatry team Dr. Mora and/or Dr. Camraa. Future Appointments Date Time Provider Department [place] 07/07/2021 7:00 PM UR OT WAITLIST [facility] [place] 07/08/2021 8:00 AM Carmencita Li Pt, PT [facility] [place] ?? Carlos A Thompson MD Orthopaedic Surgery, PGY-[address] - 07/17/2021 5:00 PM CDT CLINICAL NUTRITION SERVICES - BRIEF NOTE Chart reviewed for nutrition risk factors due to LOS. Pt is tolerating diet, eating generally 75% ofmeals ordered (2 day average 1179 kcal/58 gm pro). Plan for discharge to TCU tomorrow per nursing documentation. Pt may benefit from additional protein in diet going forward. Will begin trial of EnsureEnlive and communicate this in RD handoff. Loan Vega, MPH, RDN, LD, CNSC Tiffanie Figueroa RN - 07/17/2021 3:45 PM CDT Care Management Follow Up Length of Stay (days): 11 Expected Discharge Date: 07/18/2021 Concerns to be Addressed: Patient plan of care discussed at interdisciplinary rounds: Yes Anticipated Discharge Disposition: TCU Education Provided on the Discharge Plan: yes Patient/Family in Agreement with the Plan: yes Referrals Placed by CM/SW: TCU's Private pay costs discussed: Not applicable Additional Information: Met with patient at bedside to discuss discharge planning. Patient is agreeable to TCU placement. Several referrals made today. Wound vac to be placed back on right ankle 07/18/2021. PICC in place for 6 weeks IV antibiotics. This screen writer noticed a redness around the PICC site and the dressing dislodged by patient. This screen writer notified the bedside RN. Burring Wheel Operator made recommendations. See note. [facility] RN also assessed and redressed PICC site. Spoke with patient's mother, So, who agreed with the plan of patient going to TCU. oS is caring for patient's three children while she is in the hospital. This screen writer will continue to follow up on TCU referrals. Tiffanie Machado RN, BSN Sql Server Consultant, 5 Ortho Pager Alma Oswald MD - 07/17/2021 2:45 PM CDT Images from the original note were not included. [facility] and Forward Progress Note Date of Admission: 07/06/2021 Encounter Date: 07/17/21 Date of Consultation: 07/16/21 Assessment/Recommendations: # Irritant versus allergic contact dermatitis to adhesives from PICC line dressing with disseminatedid reaction (autosensitization/autoeczematization) - suspect due to adhesive dressings to secure PICC line exacerbated by fluid leakage and resulting impaired skin barrier function; due to need for PICC for prolonged antibiotic course, would recommend avoiding irritating and sensitizing cleansing solutions including chlorhexidine gluconate when changing the dressing - would recommend silicone-faced low allergenic polyurethane foam dressings (Mepitac tape, Sorbiview, [id number]) over occlusive adhesive semipermeable gauze dressings; WOC can provide more detailed recommendations - overall suspicion for cutaneous dermatophyte or yeast infection is low, suspect that square-shapedannular lesion on right medial arm may have been triggered prior adhesive bandage; some peripheral satellite papules lesions at primary dermatitis site on left arm, can consider swapping the lesions for a fungal culture (results usually take days to weeks and should not delay discharge planning); consider adding anti-yeast agents such as nystatin ointment or clotrimazole cream to target/prevent secondary Karla infection - Vaseline to scaly irritated inflamed skin to maintain skin barrier - clobetasol 0.05% ointment 1-2 times daily to inflamed plaque on left arm near PICC insertion untilimproved - triamcinolone 0.1% ointment (request 80g or more from pharmacy) 1-2 times daily to all other areas - antihistamines PRN pruritus per primary - can consider referral for patch testing after discharge Background: Id reaction, also known as autoeczematization or autosensitization dermatitis occurs when eczema develops at distant sites not exposed to the original contactant as a result for a reduced threshold fordelayed type hypersensitivity. It is commonly observed with allergic or irritant contact dermatitis,stasis dermatitis, and severe dermatophyte infection. It can be seen association with other forms ofeczema as well. The reaction appears few days to weeks after the primary dermatitis and is often severely pruritic. It shows a symmetric pattern and has a predilection for the palms, soles, and extensor surfaces of the upper extremities. Our suspicion of the drug reaction is low given the morphology of the skin lesions and the history. Topical therapies with antihistamines as needed for pruritus are the mainstays of treatment References: [place]. Management of irritant contact dermatitis and peripherally inserted central catheters. Clin J Oncol Nurs. 2012 May;16(2):E48-55. doi: 10.1188/12.CJON.E48-E55. PMID: [id number]. Thank you for this teledermatology consultation. Please do not hesitate to contact with any additional questions or concerns. Attending physician: Dr. Kathryn Oswald MD Dermatology Resident [facility] Relevant History: Based on chart review and direct communication with consulting team 40 year old female??with past medical history significant for opioid use disorder,??alcohol use disorder,??HCV, hypothyroidism, depression, anxiety, and tobacco abuse??admitted on 07/06/21 from [facility] for further care of R ankle osteomyelitis by orthopedics, plastic surgery, and ID. S/p I&D 06/30, 07/02, 07/04, 07/07 with wound vac placement (removed 07/11), on vancomycin, Zosyn (started 07/11-) - PICC line placed 07/04, ID was planning at least 6 weeks of treatment for calcaneal osteomyelitis - dermatology consulted 07/16 for itchy skin eruption on the left leg with other pink pruritic lesions on the right arm and around the PICC line on the left arm, may have been present since the surgery,started on hydrocortisone cream - dermatology reviewed images and initially thought lesions could be due to urticaria give wheal-like appearance of plaques on left leg, recommended Sravanthi and hydroxyzine, ID concerned about fungal infection - nursing staff noted 07/17 skin was inflamed and irritated underneath left arm PICC dressing Physical exam: Clinical photographs reviewed, image quality acceptable, date of images 07/17/21, 07/16/21 - pink scaly eczematous circular disciform plaque with peripheral satellite pink papules on left armat site of PICC line dressing - cuboidal pink eczematous targetoid plaque on right medial arm - nummular pink papules and plaques on right knee - light brown and pink urticarial wheals and pink eczematous papules on left lower leg Past Medical History: Patient Active Problem List [...] (H) ??? Family history of SIDS (sudden syndrome) ??? History of anomaly in prior [...] Osteomyelitis of right ankle, unspecified type (H) Medications: Current Facility-Administered Medications Medication ??? acetaminophen (TYLENOL) tablet 975 mg ??? aspirin EC tablet 162 mg ??? buprenorphine (SUBUTEX) sublingual tablet 4 mg ??? diphenhydrAMINE (BENADRYL) capsule 25 mg ??? famotidine (PEPCID) tablet 20 mg ??? [START ON 07/18/2021] fexofenadine (SRAVANTHI) tablet 180 mg ??? folic acid (FOLVITE) tablet 1 mg ??? gabapentin (NEURONTIN) capsule 100 mg ??? hydrocortisone (CORTAID) 1 % cream ??? hydrOXYzine (ATARAX) tablet 25 mg ??? hydrOXYzine (ATARAX) tablet 25 mg ??? lactulose (CHRONULAC) solution 20 g ??? levothyroxine (SYNTHROID/LEVOTHROID) tablet 125 mcg ??? lidocaine (XYLOCAINE) 4 % solution 10 mL ??? methocarbamol (ROBAXIN) tablet 750 mg ??? ondansetron (ZOFRAN ODT) ODT tab 4 mg Or ??? ondansetron (ZOFRAN) injection 4 mg ??? oxyCODONE (ROXICODONE) tablet 5-10 mg ??? piperacillin-tazobactam (ZOSYN) 4.5 g vial to attach to NS 100 mL bag ??? polyethylene glycol (MIRALAX) Packet 17 g ??? polyethylene glycol (MIRALAX) Packet 17 g ??? senna-docusate (SENOKOT-S/PERICOLACE) 8.6-50 MG per tablet 2 tablet ??? sodium chloride (PF) 0.9% PF flush 10-20 mL ??? sodium chloride (PF) 0.9% PF flush 10-40 mL ??? sodium chloride (PF) 0.9% PF flush 10-40 mL ??? sodium chloride 0.9% (bottle) irrigation ??? thiamine (B-1) tablet 100 mg ??? vancomycin (VANCOCIN) 1,500 mg in sodium chloride 0.9 % 250 mL intermittent infusion ??? venlafaxine (EFFEXOR XR) 24 hr capsule 300 mg Staff Involved: Resident/Staff Associated attestation - Brice Peralta MD - 07/17/2021 9:34 PM CDT Attestation: I discussed the case with the resident and agree with the plan as outlined in the resident's note. Ireviewed the teledermatology photos, the patient's medical records and labs. I did not evaluate the patient in-person. Brice Peralta MD Pronouns: he/him/his Assistant Manager [employer] Department of Dermatology [facility]: , [facility]: Lona Zhao RN - 07/17/2021 1:47 PM CDT Images from the original note were not included. Bedside RN paged VAS for assessing patient's left arm PICC due to skin issues. This screen writer discovered that the skin was irritated and pink under the securing device. A photo was taken, see attachment. Due to the redness of skin with some moister, betanidine was used for PICC dressing changed. Wound culture was not taken at this moment due to bedside RN applied the cream on the redness skin. PICC was out 3 cm initially and X-ray on 07/13 stated that the PICC was in SVC. It was out 4 cm before the dressing changed today, yet based on the measurement of 07/13 X-ray, PICC would be still in SVC. PICC careand maintenance was provided to the bedside RN. If there is more concerns regarding the PICC, pleasecontact Vascular Access Service. Jaime Rae MD - 07/17/2021 1:10 PM CDT [facility] Medicine Progress Note - Hospitalist Service, ONUR TEAM 17 Date of Admission: 07/06/2021 Assessment & Plan 40 year old female??with past medical history significant for opioid use disorder,??alcohol use disorder,??HCV, hypothyroidism, depression, anxiety, and tobacco abuse??admitted on 07/06/21 from [facility] for further care of R ankle osteomyelitis by Orthopedics, Plastics, and Infectious Disease.? Today's changes: 07/17/2021 Doing okay. Ongoing rash, pruritus issue including around picc line. Dermatology consulted. Added clobetasol andtriamcinolone ointment per recs. Increase hydroxyzine to 25-50 mg prn for itching. Increase sravanthi to 180 mg daily ?Picc line pulled out slightly, CXR to check picc position. Ortho, ID, WOCN following. See recs in epic. # R ankle osteomyelitis?? # Ankle pain and immobility Presented to OSH with worsening R ankle pain and unable to walk x 1 week on 06/28.?MRI 06/29 w/ extensive tibiotalar erosions w/ large joint effusion and synovitis, diffuse muscle and superficial softtissue edema.?S/p calcaneal hardware removal??and underwent??I&D x 3. ??Arthrocentesis attempted there without fluid retrieval. ??Wound cx positive for MSSA. ??Has exposed bone and tendon now with wound vac in place.? Discussed with ID on 07/12. Having Temp 101. Wound vac has been removed. Antibiotics broadened to Zosyn on 07/12/2021. Also on Vancomycin on 07/11/2021 Ancef discontinued on 07/11. No respiratory, GI, symptoms/signs Wound culture from 07/11 growing Staph simulans Followed by Orthopedics, and ID - Continue Vancomycin, and Zosyn. Antibiotics plan per ID - Continue wound vac. WOCN consult. ?? 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 - Patient reports current suboxone dose is managing her pain, and does not want to reduce the dose. On 07/16, reported by RN that patient was somewhat sedated with suboxone. Will reduce dose to every 6hrs - Decrease Oxycodone to 5 mg every 6 hours - Decrease Gabapentin to 100 mg TID ?? 07/07/2021: Status post IRRIGATION AND DEBRIDEMENT, FOOT and ankle, wound vac exchange by Dr. Olivera. ??EBL: 25 ml. Per Ortho: Okay to resume DVT prophylaxis on postop day 1. ??Recommending aspirin 162 mg every day. ??Follow-up Intra-Op cultures. NWB on the RLE. ?? # MSSA Staph bacteremia??- Blood cx positive at OSH. ??Initially treated with Vanc/Zosyn and transitioned to Ancef. ??TTE 06/29 neg for vegetation. ??CRP elevated at 65, increased from previous at OSH. Sed rate 97. -IV Ancef for now, as above -Follow-up blood cultures -TTE: EF: 55-60%, no vegetation reported.?? -Trend CRP - Monitor??vitals. Trend fever.? # Rash: Blanchable rash on the both legs left>right. Right arm,and around picc line. Picture taken. - Hydrocortisone cream - Benadryl PRN - Dermatology consulted. Case discussed on 07/16 - Await further recommendations from Derm ?? # HCV # Transaminitis??- improving.?? # Alcohol use disorder.?? HCV quant [id number]??at OSH. ??AST 117, ALT 44, and AP 213 on 07/05. ??Tbili 1.6. ??Albumin 2.9. ??INR 1.39. ??Started on Lactulose and Spironolactone at OSH; discussed with patient, does not recall being prescribed these meds prior to admission. ??She currently has a duarte in place for monitoring urine output. ?? - Continue Lactulose for now - Follow-up CMP- improving. - US abdomen -Hepatosplenomegaly and diffuse hepatic steatosis. - I/Os, daily weights - follow up with Hepatology outpatient?? - Alcohol abstinence. ?? # Acute Encephalopathy??- Per chart review, patient somnolent on admission and with periods of confusion early in admission. ??[place] to be??toxic vs metabolic??2/2 ?withdrawal, infection, sepsis. ??Utoxpositive only for cannabinoids. ??Started on Lactulose at OSH. Patient intermittently sleepy??on 07/15 with conversation, reports she did not sleep well last night. ?? - Monitor for sedation with pain meds, minimize narcotics. Reduced Suboxone frequency on 07/16, - Narcan prn - Will continue Lactulose as above? # Hypokalemia # Hypomagnesemia?? In setting of sepsis, poor PO intake at OSH. ?? -Replace per protocol. ?? # Hypothyroidism??- Continue Levothyroxine 125mcg QAM. ?? #??Hx opioid use disorder?? # Chronic pain In remission, has been successfully managed on??buprenorphine??since 2009. ??On buprenorphine 4mg QID APPLICATION INTEGRATION ARCHITECT, increased to Q4H at OSH due to uncontrolled pain. Doing well with addition of Oxycodone. ?? -??Pain consult prn ?? # Pressure ulcers R buttocks, gluteal fold??- Noted on admission??at OSH to have skin redness at gluteal fold between thigh and buttocks.?- WOCN consult. ? # Anemia??- Hgb 10.0 07/09. ??Possibly??acute blood loss plus??chronic illness, liver dysfunction. ?? - ??iron 35. - Continue folate supplementation ?? # Tobacco abuse??- Nicotine replacement per patient preference ?? # Indwelling duarte:??07/08:??discontinue duarte, TOV Patient denies any urinary retention prior. Monitor PVR.? Diet: Regular Diet Adult Diet Diet Snacks/Supplements Adult: Ensure Enlive; Between Meals DVT Prophylaxis: per Ortho Duarte Catheter: Not present Central Lines: PRESENT PICC Single Lumen Left-Site Assessment: WDL except;[place];Tender Cardiac Monitoring: None Code Status: Full Code Disposition Plan Expected Discharge: 07/18/2021 Likely TCU. Anticipated discharge location: Awaiting care coordination huddle Delays: The patient's care was discussed with the Bedside Nurse, Sql Server Consultant/Paying Teller and Patient. Jaime Rae MD Hospitalist Service, GOLD TEAM [address] [place] [address] Securely message with the DocsInk Console (learn more here) Text page via [facility] Paging/Directory Please see signed in provider for up to date coverage information Clinically Significant Risk Factors Present on Admission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 Disease.? # R ankle osteomyelitis?? # Ankle pain and immobility Presented to OSH with worsening R ankle pain and unable to walk x 1 week on 06/28.?MRI 06/29 w/ extensive tibiotalar erosions w/ large joint effusion and synovitis, diffuse muscle and superficial softtissue edema.?S/p calcaneal hardware removal??and underwent??I&D x 3. ??Arthrocentesis attempted there without fluid retrieval. ??Wound cx positive for MSSA. ??Has exposed bone and tendon now with wound vac in place.? Discussed with ID on 07/12. Having Temp 101. Wound vac has been removed. Antibiotics broadened to Zosyn on 07/12/2021. Also on Vancomycin on 07/11/2021 Ancef discontinued on 07/11. No respiratory, GI, symptoms/signs Temp 99. - Ortho consulted, following. - Continue Vancomycin, and Zosyn - Continue wound vac. WOCN consult. 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 - Patient reports current suboxone dose is managing her pain, and does not want to reduce the dose - Decrease Oxycodone to 5 mg every 6 hours - Decrease Gabapentin to 100 mg TID 07/07/2021: Status post IRRIGATION AND DEBRIDEMENT, FOOT and ankle, wound vac exchange by Dr. Olivera. EBL: 25 ml. Per Ortho: Okay to resume DVT prophylaxis on postop day 1. Recommending aspirin 162 mg every day. Follow-up Intra-Op cultures. NWB on the RLE. ?? # MSSA Staph bacteremia??- Blood cx positive at OSH. ??Initially treated with Vanc/Zosyn and transitioned to Ancef. ??TTE 06/29 neg for vegetation. ??CRP elevated at 65, increased from previous at OSH. Sed rate 97. -IV Ancef for now, as above -Follow-up blood cultures -TTE: EF: 55-60%, no vegetation reported. -Trend CRP - Monitor vitals. Trend fever. ?? # HCV # Transaminitis??- improving. # Alcohol use disorder. HCV quant [id number]??at OSH. ??AST 117, ALT 44, and AP 213 on 07/05. ??Tbili 1.6. ??Albumin 2.9. ??INR 1.39. ??Started on Lactulose and Spironolactone at OSH; discussed with patient, does not recall being prescribed these meds prior to admission. ??She currently has a duarte in place for monitoring urine output. ?? - Continue Lactulose for now - Follow-up CMP- improving. - US abdomen -Hepatosplenomegaly and diffuse hepatic steatosis. - I/Os, daily weights - follow up with Hepatology outpatient?? - Alcohol abstinence. ?? # Acute Encephalopathy??- Per chart review, patient somnolent on admission and with periods of confusion early in admission. ??[place] to be??toxic vs metabolic??2/2 ?withdrawal, infection, sepsis. ??Utoxpositive only for cannabinoids. ??Started on Lactulose at OSH. Patient intermittently sleepy??on 07/15 with conversation, reports she did not sleep well last night. - Monitor for sedation with pain meds, minimize narcotics - Narcan prn - Will continue Lactulose as above? # Hypokalemia # Hypomagnesemia?? In setting of sepsis, poor PO intake at OSH. ?? -Replace per protocol. ?? # Hypothyroidism??- Continue Levothyroxine 125mcg QAM. ?? #??Hx opioid use disorder?? # Chronic pain In remission, has been successfully managed on??buprenorphine??since 2009. ??On buprenorphine 4mg QID APPLICATION INTEGRATION ARCHITECT, increased to Q4H at OSH due to uncontrolled pain. Doing well with addition of Oxycodone. ?? - Pain consult prn ?? # Pressure ulcers R buttocks, gluteal fold??- Noted on admission??at OSH to have skin redness at gluteal fold between thigh and buttocks.?- WOCN consult. ? # Anemia??- Hgb 10.0 07/09. ??Possibly acute blood loss plus chronic illness, liver dysfunction. ?? - iron 35. - Continue folate supplementation ?? # Tobacco abuse??- Nicotine replacement per patient preference ?? # Indwelling duarte: 07/08: discontinue duarte, TOV Patient denies any urinary retention prior. Monitor PVR. ?? # Dispo??- consult for discharge planning, community resources.? Diet: Regular Diet Adult Diet Diet DVT Prophylaxis: Per ORtho Duarte Catheter: Not present Central Lines: PRESENT PICC Single Lumen Left-Site Assessment: WDL Cardiac Monitoring: None Code Status: Full Code ? Disposition Plan Expected Discharge: TBD: ?? The patient's care was discussed with the Bedside Nurse, Sql Server Consultant/Paying Teller, Patient andOrthopedic Team. ?? Pt's care was discussed with bedside RN, patient and during Care Team Rounds. Raisa Westbrook MD - 07/15/2021 6:55 AM CDT Orthopaedic Surgery Progress Note 07/15/2021 S: VSS, AF. Ankle pain improving. Tolerating diet. Voiding spontaneously. Ambulating with assist of 1 with a walker and a gait belt. Working with PT/OT. Denies fevers, chills, chest pain, SOB. O: Temp: 98.1 ??F (36.7 ??C) Temp src: Oral BP: 121/81 Pulse: 62 Resp: 16 SpO2: 98 % O2 Device: None (Room air) Exam: Gen: No acute distress, resting comfortably in bed. CV: wwp Resp: Non-labored breathing MSK: Lower Extremity: Inspection: GUS wrap, kerlix. No TTP about the calf. No erythema extending up the leg. Rash about bilateral posterior thighs. Motor: Able to fire hip flexion, quad, hamstring, tibialis anterior, gastroc/soleus, FHL, EHL Sensory: SILT to superficial peroneal, deep peroneal, saphenous, sural, and tibial nerve distributions. Circulation: foot warm and well perfused. 2+ dp pulse is palpable. Range the right lower extremity knee and hip without pain. Ranged the ankle, knee, and hip of the left lower extremity without pain. Recent Labs Lab 07/14/21 0530 07/13/21 0540 07/12/21 0657 07/10/21 0726 WBC 4.9 4.9 6.6 7.9 HGB 9.6* 10.1* 9.9* 9.6* PLT 167 175 216 289 CRP 40.0* -- 57.0* 59.0* Culture results: Blood cultures: 07/09 NGTD, 07/12 NGTD Wound tissue cultures: 07/07 staph simulans, 07/11 staph simulans Assessment: Deann King is a 40 year old female s/p??right foot I&D and HWR x3 at OSH (06/30,07/02, 07/04) transferred??on 07/06 for further management. Cultures with MSSA. NOW s/p R ankle/foot I&D + wound vac application with Dr. Olivera on 07/07/2021. Wound cultures positive for 1+ staph simulans. The patient was seen by plastic surgery who is recommending continued wound vac with outpatientfollow up in 2 weeks for a wound check. They recommended discharge with the wound vac. The patient has had persistent fevers and 07/12 the wound vac was discontinued and transitioned to a vashe dressing. Wound cultures with staph simulans. Patient with rash on BLE, likely reaction to antibiotics. Defer to medicine and ID team. Today: - Daily vashe dressings per plastics, appreciate recommendations - Continue antibiotics per ID and primary team. - Continue to follow culture results. Plan: Primary: Medicine Activity: Up with assist. Weight bearing status: NWB RLE Antibiotics: IV Ancef; appreciate ID recommendations Diet: Begin with clear fluids and progress diet as tolerated. DVT prophylaxis: ASA 162mg qD and mechanical while in the hospital Elevation: Elevate RLE on pillows as much as possible. Wound Care: Wound vac to remain in place @ 125mmHg, WOC performing Friday and Friday VAC changes. Pain management: transition from IV to orals as tolerated. X-rays: No additional imaging needed at this time Physical Therapy: ROM, ADL's. Occupational Therapy: ADL's. Labs: Trend inflammatory labs Cultures: Wound culture positive for 1+ staph simulans. Blood cultures remain no growth to date. Follow-up: Follow up as an outpatient in 2 weeks with plastic surgery. Follow up either with Dr. Treadwell or with Podiatry team Dr. Mora and/or Dr. Camara. Future Appointments Date Time Provider Department [place] 07/07/2021 7:00 PM UR OT WAITLIST [facility]OT [place] 07/08/2021 8:00 AM Carmencita Li Pt, PT URPT [place] ?? Raisa Westbrook MD Orthopaedic Surgery, PGY-1 Ghazala Hinkle, [facility] - 07/14/2021 2:57 PM CDT Care Management Follow Up Length of Stay (days): 8 Expected Discharge Date: 07/16/2021 Concerns to be Addressed: Information sharing with people other than patient about her PHI Patient plan of care discussed at interdisciplinary rounds: no weekend Anticipated Discharge Disposition: Home Additional Information: RN asked screen writer to speak with patient's mother - patient's mother called upset that we are not sharing PHI with her, that the SW on the Unit did not call mother back last week and that the MD is not calling her. Dynamic Etching Processor explained that without permission from a patient we are unable to share PHI. Motherof patient stated that her daughter has a dependence on alcohol and mother is concerned that her daughter does not sound clear on the phone as she has talked with her daughter (our patient) today. Dynamic Etching Processor shared that we can provide a document to any patient that allows the patient to list others who are able to receive PHI. Mother stated that daughter (our patient) has verbally told her mother that this would be fine. Mother also shared that the [facility] Gauge And Weigh Machine Adjuster for the patient's children (whom patient's mother is currently caring for) has recommended that patient complete a Durable Power of Health Records Technology Teacher for Legal/Financial - giving this power to her mother. Dynamic Etching Processor explained that our [facility] does not provide a Notary for these types of documents nor do we have blank copies of this document available. Mother stated the [facility] Gauge And Weigh Machine Adjuster would provide her a copy. Dynamic Etching Processor stated that mother can utilize a Remote Notary and pay privately for this service. Mother asked if the elementary school social worker on Friday07.17.2021 would have this list and screen writer indicated they would. Spoke with patient in room and provided the Authorization to Discuss Protected Health Information form to her. We talked about what the form meant - patient thought it was a health care directive and we talked about the difference between a HCD and this Authorization to Discuss PHI. Dynamic Etching Processor clarified the [facility] policy in the absence of a HCD we would go to her legal NOK - she is and her lives in [place], she has no adult children, her parents and then her siblings. Deann thought about the form and whether she wanted to limit the information that her mother could receive. She thought this over, explained to screen writer that her mother is overbearing and thinks that she knows everything. Deann expressed concern that her mother would make decisions for her - we again clarified this Authorization document was not a HCD. After more reflection Deann decided that she would put her mother and brother's information on the Authorization to Discuss PHI form and not limit anyof the information that could be shared. Form in paper chart. Mother - So Parker @ [phone] Brother - Colby Parker @ [phone] Dynamic Etching Processor explained to patient that her mother would like to speak with the MD and patient was okay with this. Paged Dr. Ulloa with this information at 3621. JANETT Sepulveda CUSTOMER RELATIONS COORDINATOR 07/14/2021 Text paging available through [employer] on [employer] - search [employer] WORK Friday INTERNET MARKETING SPECIALIST PAGER 0800 - 1600 Friday INTERNET MARKETING SPECIALIST PAGER 0800 - 1600 Friday INTERNET MARKETING SPECIALIST COVERAGE AFTER 1600 - midnight [phone] and Friday 1600 - midnight [phone] Lona Zhao RN - 07/14/2021 12:52 PM CDT Bedside nurse called to with questions regarding PICC tip location. CXR done 07/13. Per radiology, PICC tip projects over the SCV. PICC lies within the central vasculature and is appropriate for use. All questions answered at this time. Please call VAS with further questions or concerns. Jensen Ulloa MD - 07/14/2021 12:23 PM CDT [facility] [place] Internal Medicine Daily Note Interval History/Events Overnight events reviewed Reports feeling intermittently sleepy while talking No nausea, vomiting No chest pain, shortness of breath No fever, chills. Review of Systems 4 point ROS including Respiratory, CV, GI and , other than that noted above is negative Medications I have reviewed current medications in the current medication section of [employer]. Relevant changes include: Physical Exam General: Vital signs: Blood pressure 115/69, pulse 78, temperature 100.1 ??F (37.8 ??C), temperature source Oral, resp. rate 16, height 1.676 m (5' 6), weight 79.4 kg (175 lb), last menstrual period 05/24/2016, SpO2 97 %,not currently . Estimated body mass index is 28.25 kg/m?? as calculated from the following: Height as of this encounter: 1.676 m (5' 6). Weight as of this encounter: 79.4 kg (175 lb). Intake/Output Summary (Last 24 hours) at 07/10/2021 1035 Last data filed at 07/10/2021 0800 Gross per 24 hour Intake 30 ml Output 1050 ml Net -1020 ml Constitutional: Laying in bed in no acute distress Eye: No icterus, no pallor Mouth/ENT: Normal oral mucosa Cardiovascular: S1, S2 normal. Respiratory: B/L CTA GI: Soft, NT, BS+ : Neurology: Psych: MSK: Right ankle dressing inplace. Integumentary: Heme/Lymph/Imm: Laboratory and Imaging Studies I have reviewed laboratory and imaging studies in the [facility]. Pertinent findings are as below: BMP Recent Labs Lab 07/14/21 0530 07/13/21 0540 07/12/21 0657 07/11/21 0909 07/09/21 1222 07/07/21 1235 NA -- 139 -- -- 139 137 POTASSIUM -- 3.9 -- -- 3.6 4.1 CHLORIDE -- 106 -- -- 104 102 MACARENA -- 9.0 -- -- 9.2 9.2 CO2 -- 26 -- -- 28 25 BUN -- 11 -- -- 9 6* CR 0.62 0.63 0.57 0.58 0.55 0.57 GLC -- 102* -- -- 117* 136* CBC Recent Labs Lab 07/14/21 0530 07/13/21 0540 07/12/21 0657 07/10/21 0726 WBC 4.9 4.9 6.6 7.9 RBC 3.09* 3.19* 3.19* 3.09* HGB 9.6* 10.1* 9.9* 9.6* HCT 29.2* 30.5* 30.5* 29.5* MCV 95 96 96 96 MCH 31.1 31.7 31.0 31.1 MCHC 32.9 33.1 32.5 32.5 RDW 13.3 13.2 13.6 14.2 PLT 167 175 216 289 INR No lab results found in last 7 days. LFTs Recent Labs Lab 07/13/21 0540 07/09/21 1222 07/07/21 1235 ALKPHOS 167* -- 204* AST 50* -- 52* ALT 31 27 32 BILITOTAL 1.1 -- 1.3 PROTTOTAL 6.9 -- 7.9 ALBUMIN 2.3* -- 2.3* PANCNo lab results found in last 7 days. Impression/Plan 40 year old female??with past medical history significant for opioid use disorder,??alcohol use disorder,??HCV, hypothyroidism, depression, anxiety, and tobacco abuse??admitted on 07/06/21 from [facility] for further care of R ankle osteomyelitis by Orthopedics, Plastics, and Infectious Disease.? # R ankle osteomyelitis?? # Ankle pain and immobility Presented to OSH with worsening R ankle pain and unable to walk x 1 week on 06/28.?MRI 06/29 w/ extensive tibiotalar erosions w/ large joint effusion and synovitis, diffuse muscle and superficial softtissue edema.?S/p calcaneal hardware removal??and underwent??I&D x 3. ??Arthrocentesis attempted there without fluid retrieval. ??Wound cx positive for MSSA. ??Has exposed bone and tendon now with wound vac in place.? Discussed with ID on 07/12. Having Temp 101. Wound vac has been removed. Antibiotics broadened to Zosyn on 07/12/2021. Also on Vancomycin on 07/11/2021 Ancef discontinued on 07/11. No respiratory, GI, symptoms/signs Temp 99. - Ortho consulted, following. - Continue Vancomycin, and Zosyn - Continue wound vac. WOCN consult. - Pain control: continue APPLICATION INTEGRATION ARCHITECT Suboxone 4mg Q4H (was taking this way at OSH, home dose 8mg tid) ; scheduled APAP 975mg TID, Gabapentin 300mg HS-> 07/08: Increase gabapentin 300 mg tid, Robaxin 750mg TID, and oxycodone 5-10mg Q3H PRN and iv dilaudid_ per Ortho recs - Patient reports current suboxone dose is managing her pain, and does not want to reduce the dose - Decrease Oxycodone to every 4 hours - Decrease Gabapentin to 200 mg TID 07/07/2021: Status post IRRIGATION AND DEBRIDEMENT, FOOT and ankle, wound vac exchange by Dr. Olivera. EBL: 25 ml. Per Ortho: Okay to resume DVT prophylaxis on postop day 1. Recommending aspirin 162 mg every day. Follow-up Intra-Op cultures. NWB on the RLE. ?? # MSSA Staph bacteremia??- Blood cx positive at OSH. ??Initially treated with Vanc/Zosyn and transitioned to Ancef. ??TTE 06/29 neg for vegetation. ??CRP elevated at 65, increased from previous at OSH. Sed rate 97. -IV Ancef for now, as above -Follow-up blood cultures -TTE: EF: 55-60%, no vegetation reported. -Trend CRP - Monitor vitals. Trend fever. ?? # HCV # Transaminitis??- improving. # Alcohol use disorder. HCV quant [id number]??at OSH. ??AST 117, ALT 44, and AP 213 on 07/05. ??Tbili 1.6. ??Albumin 2.9. ??INR 1.39. ??Started on Lactulose and Spironolactone at OSH; discussed with patient, does not recall being prescribed these meds prior to admission. ??She currently has a duarte in place for monitoring urine output. ?? - Continue Lactulose for now - Follow-up CMP- improving. - US abdomen -Hepatosplenomegaly and diffuse hepatic steatosis. - I/Os, daily weights - follow up with Hepatology outpatient?? - Alcohol abstinence. ?? # Acute Encephalopathy??- Per chart review, patient somnolent on admission and with periods of confusion early in admission. ??[place] to be??toxic vs metabolic??2/2 ?withdrawal, infection, sepsis. ??Utoxpositive only for cannabinoids. ??Started on Lactulose at OSH. ?? - Monitor for sedation with pain meds, minimize narcotics as able. - Narcan prn - Will continue Lactulose as above? # Hypokalemia # Hypomagnesemia?? In setting of sepsis, poor PO intake at OSH. ?? -Replace per protocol. ?? # Hypothyroidism??- Continue Levothyroxine 125mcg QAM. ?? #??Hx opioid use disorder?? # Chronic pain In remission, has been successfully managed on??buprenorphine??since 2009. ??On buprenorphine 4mg QID APPLICATION INTEGRATION ARCHITECT, increased to Q4H at OSH due to uncontrolled pain. Doing well with addition of Oxycodone. ?? - Pain consult prn ?? # Pressure ulcers R buttocks, gluteal fold??- Noted on admission??at OSH to have skin redness at gluteal fold between thigh and buttocks.?- WOCN consult. ? # Anemia??- Hgb 10.0 07/09. ??Possibly acute blood loss plus chronic illness, liver dysfunction. ?? - iron 35. - Continue folate supplementation ?? # Tobacco abuse??- Nicotine replacement per patient preference ?? # Indwelling duarte: 07/08: discontinue duarte, TOV Patient denies any urinary retention prior. Monitor PVR. ?? # Dispo??- SW consult for discharge planning, community resources.? Diet: Regular Diet Adult Diet Diet DVT Prophylaxis: Per ORtho Duarte Catheter: Not present Central Lines: PRESENT PICC Single Lumen Left-Site Assessment: WDL Cardiac Monitoring: None Code Status: Full Code ? Disposition Plan Expected Discharge: TBD: ?? The patient's care was discussed with the Bedside Nurse, Sql Server Consultant/Paying Teller, Patient andOrthopedic Team. ?? Pt's care was discussed with bedside RN, patient and during Care Team Rounds. Raisa Westbrook MD - 07/14/2021 6:42 AM CDT Orthopaedic Surgery Progress Note 07/14/2021 S: VSS, AF. Ankle pain improving. Patient reporting new rash in BLE, not painful or pruritic Tolerating diet, but notes appetite still less than baseline. Voiding spontaneously. Ambulating with assist of 1 with a walker and a gait belt. Working with PT/OT recommending TCU. O: Temp: 98.9 ??F (37.2 ??C) Temp src: Oral BP: (!) 140/80 Pulse: 58 Resp: 16 SpO2: 97 % O2 Device: None (Room air) Exam: Gen: No acute distress, resting comfortably in bed. CV: wwp Resp: Non-labored breathing MSK: Lower Extremity: Inspection: GUS wrap, kerlix. Wound is packed with Vashe covered gauze. No change in the erythema about the wound. No TTP about the calf. No erythema extending up the leg. Motor: Able to fire hip flexion, quad, hamstring, tibialis anterior, gastroc/soleus, FHL, EHL Sensory: SILT to superficial peroneal, deep peroneal, saphenous, sural, and tibial nerve distributions. Circulation: foot warm and well perfused. 2+ dp pulse is palpable. Range the right lower extremity knee and hip without pain. Ranged the ankle, knee, and hip of the left lower extremity without pain. Recent Labs Lab 07/14/21 0530 07/13/21 0540 07/12/21 0657 07/10/21 0726 WBC 4.9 4.9 6.6 7.9 HGB 9.6* 10.1* 9.9* 9.6* PLT 167 175 216 289 CRP 40.0* -- 57.0* 59.0* Culture results: Blood cultures: 07/09 NGTD, 07/12 NGTD Wound tissue cultures: 07/11 NGTD Assessment: Deann King is a 40 year old female s/p??right foot I&D and HWR x3 at OSH (06/30,07/02, 07/04) transferred??on 07/06 for further management. Cultures with MSSA. NOW s/p R ankle/foot I&D + wound vac application with Dr. Olivera on 07/07/2021. Wound cultures positive for 1+ staph simulans. The patient was seen by plastic surgery who is recommending continued wound vac with outpatientfollow up in 2 weeks for a wound check. They recommended discharge with the wound vac. The patient has had persistent fevers and 07/12 the wound vac was discontinued and transitioned to a vashe dressing. Cxs NGTD. Patient with rash on BLE, likely reaction to antibiotics. Defer to medicine and ID team. Today: - Daily vashe dressings per plastics, appreciate recommendations - Continue antibiotics per ID and primary team. - Continue to follow culture results. Plan: Primary: Medicine Activity: Up with assist. Weight bearing status: NWB RLE Antibiotics: IV Ancef; appreciate ID recommendations Diet: Begin with clear fluids and progress diet as tolerated. DVT prophylaxis: ASA 162mg qD and mechanical while in the hospital Elevation: Elevate RLE on pillows as much as possible. Wound Care: Wound vac to remain in place @ 125mmHg, WOC performing Friday and Friday VAC changes. Pain management: transition from IV to orals as tolerated. X-rays: No additional imaging needed at this time Physical Therapy: ROM, ADL's. Occupational Therapy: ADL's. Labs: Trend inflammatory labs Cultures: Wound culture positive for 1+ staph simulans. Blood cultures remain no growth to date. Follow-up: Follow up as an outpatient in 2 weeks with plastic surgery. Follow up either with Dr. Treadwell or with Podiatry team Dr. Mora and/or Dr. Camara. Future Appointments Date Time Provider Department Center 07/07/2021 7:00 PM UR OT WAITLIST [facility] [place] 07/08/2021 8:00 AM Carmencita Li Pt, PT [facility] [place] ?? Raisa Westbrook MD Orthopaedic Surgery, PGY-1 Raisa Santana RN - 07/13/2021 3:39 PM CDTSummary: Need PICC verification During vascular access rounds noted patient has PICC placed at outside facility. There is not a placement record or chest x-ray in the medical record. Requested chest xray from provider to confirm tip location. Questions: please page vascular access #[id number] Jensen Ulloa MD - 07/13/2021 11:54 AM CDT [facility] [place] Internal Medicine Daily Note Interval History/Events Overnight events reviewed Reports doing well No nausea, vomiting No cough, chest pain, shortness of breath No burning urination No loose stools Review of Systems 4 point ROS including Respiratory, CV, GI and , other than that noted above is negative Medications I have reviewed current medications in the current medication section of [employer]. Relevant changes include: Physical Exam General: Vital signs: Blood pressure 134/71, pulse 67, temperature 99.3 ??F (37.4 ??C), temperature source Oral, resp. rate 16, height 1.676 m (5' 6), weight 79.4 kg (175 lb), last menstrual period 05/24/2016, SpO2 96 %, not currently . Estimated body mass index is 28.25 kg/m?? as calculated from the following: Height as of this encounter: 1.676 m (5' 6). Weight as of this encounter: 79.4 kg (175 lb). Intake/Output Summary (Last 24 hours) at 07/10/2021 1035 Last data filed at 07/10/2021 0800 Gross per 24 hour Intake 30 ml Output 1050 ml Net -1020 ml Constitutional: Laying in bed in no acute distress Eye: No icterus, no pallor Mouth/ENT: Normal oral mucosa Cardiovascular: S1, S2 normal. Respiratory: B/L CTA GI: Soft, NT, BS+ : Neurology: Psych: MSK: Right ankle dressing inplace. Integumentary: Heme/Lymph/Imm: Laboratory and Imaging Studies I have reviewed laboratory and imaging studies in the [facility]. Pertinent findings are as below: BMP Recent Labs Lab 07/13/21 0540 07/12/21 0657 07/11/21 0909 07/09/21 1222 07/07/21 1235 07/06/21 1534 NA 139 -- -- 139 137 136 POTASSIUM 3.9 -- -- 3.6 4.1 3.9 CHLORIDE 106 -- -- 104 102 104 MACARENA 9.0 -- -- 9.2 9.2 8.7 CO2 26 -- -- 28 25 28 BUN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 exchange by Dr. Olivera. EBL: 25 ml Per Ortho: Okay to resume DVT prophylaxis on postop day 1. Recommending aspirin 162 mg every day. Follow-up Intra-Op cultures. NWB on the RLE. ?? # MSSA Staph bacteremia - Blood cx positive at OSH. Initially treated with Vanc/Zosyn and transitioned to Ancef. TTE 06/29 neg for vegetation. CRP elevated at 65, increased from previous at OSH. Sed rate 97. No leukocytosis. - IV Ancef for now, as above -Follow-up blood cultures - Trend CRP - Monitor for fevers ?? # HCV # ?Liver cirrhosis # Transaminitis # ?Hypervolemia, ascites HCV quant [id number] at OSH. AST 117, ALT 44, and AP 213 on 07/05. Tbili 1.6. Albumin 2.9. INR 1.39. On review of outside records there is mention of US abdomen completed on 06/29 but I unable to locate a report. Started on Lactulose and Spironolactone at OSH; discussed with patient, does not recall being prescribed these meds prior to admission. She currently has a duarte in place for monitoring urine output. - Continue Lactulose for now - Follow-up CMP - US abdomen - pending. - I/Os, daily weights - follow up with Hepatology outpatient ?? # Acute Encephalopathy - Per chart review, patient somnolent on admission and with periods of confusion early in admission. [place] to be toxic vs metabolic 2/2 ?withdrawal, infection, sepsis. Utox positive only for cannabinoids. Started on Lactulose at OSH. - Monitor for sedation with pain meds - Narcan prn - Will continue Lactulose as above ?? # Hypokalemia # Hypomagnesemia In setting of sepsis, poor PO intake at OSH. - Mag, Phos, K ordered for AM ?? # Hypothyroidism - Continue Levothyroxine 125mcg QAM. ?? # Hx opioid use disorder # Chronic pain In remission, has been successfully managed on buprenorphine since 2009. On buprenorphine 4mg QID APPLICATION INTEGRATION ARCHITECT, increased to Q4H at OSH due to uncontrolled pain. Doing well with addition of Oxycodone. - Will consider Addiction Med consult to help with tapering to APPLICATION INTEGRATION ARCHITECT dose if needed ?? # Pressure ulcers R buttocks, gluteal fold - Noted on admission at OSH to have skin redness at gluteal fold between thigh and buttocks. - WOCN consult ?? # Alcohol use disorder - Noted in charting. Concern for withdrawal on admission to OSH, but ABT, Utox neg. [facility], seen on 05/04 for initial visit. Recommend to start Depakote and Clonidine at that time, unclear if taking. - Pharmacy consult for medication history/review ?? # Dispo - SW consult for discharge planning, community resources. ?? # Anemia - Hgb 10.4. Possibly 2/2 chronic illness, liver dysfunction. No e/o acute bleed. - Added iron studies - Continue folate supplementation ?? # Tobacco abuse - Nicotine replacement per patient preference ? Diet: Regular Diet Adult DVT Prophylaxis: Pneumatic Compression Devices Duarte Catheter: PRESENT, indication: Central Lines: PRESENT PICC Single Lumen Left-Site Assessment: WDL Cardiac Monitoring: None Code Status: Full Code Disposition Plan Expected Discharge: TBD: The patient's care was discussed with the Bedside Nurse and Patient. Jamie Rae MD Hospitalist Service, GOLD [address] Securely message with the DocsInk Console (learn more here) Text page via [employer] Paging/Directory Please see signed in provider for up to date coverage information Clinically Significant Risk Factors Present on Admission Interval History Interval events reviewed. States doing well Denies fever or chills. No cough or cp or sob. No LH or dizziness. No NV or pain abdomen. Sleepy but easily arousable No other new or acute medical concern Data reviewed today: I reviewed all medications, new labs and imaging results over the last 24 hours. I personally reviewed no images or EKG's today. Physical Exam Vital Signs: Temp: 98 ??F (36.7 ??C) Temp src: Axillary BP: (!) 152/81 Pulse: 76 Resp: 9 SpO2: 97 % O2 Device: Nasal cannula Oxygen Delivery: 2 LPM Weight: 0 lbs 0 oz General Appearance: Awake, interactive, NAD Respiratory: Normal work of breathing. Cardiovascular: RRR GI: Soft. NT. ND. Extremities: Distally wwp. R ankle area dressing. Skin: No acute rash on exposed areas. Neuro: Grossly non focal. Others: Stable mood. Data Recent Labs Lab 07/07/21 1235 07/06/21 1534 WBC 8.6 5.7 HGB 10.4* 10.4* MCV 96 98 PLT 308 243 INR -- 1.39* NA 137 136 POTASSIUM 4.1 3.9 CHLORIDE 102 104 CO2 -- 28 BUN -- 7 CR -- 0.46* ANIONGAP -- 4 MACARENA -- 8.7 GLC -- 133* ALBUMIN -- 2.1* PROTTOTAL -- 7.2 BILITOTAL -- 1.3 ALKPHOS -- 206* ALT -- 39 AST -- 73* No results found for this or any previous visit (from the past 24 hour(s)). Medications ??? acetaminophen 975 mg Oral TID ??? [START ON 07/08/2021] aspirin 162 mg Oral Daily ??? buprenorphine 4 mg Sublingual Q4H ??? ceFAZolin 2 g Intravenous Q8H ??? famotidine 20 mg Oral BID ??? folic acid 1 mg Oral Daily ??? gabapentin 300 mg Oral At Bedtime ??? lactulose 20 g Oral Daily ??? levothyroxine 125 mcg Oral QAM AC ??? methocarbamol 750 mg Oral TID ??? senna-docusate 1-2 tablet Oral BID ??? sodium chloride (PF) 10-40 mL Intracatheter Q7 Days ??? thiamine 100 mg Oral Daily ??? venlafaxine 300 mg Oral Daily Leydi Naranjo RN - 07/07/2021 12:10 PM CDT Pt arrived to the unit at 1115 and settled into room. PICC left arm infusing. capno on. Duarte draining adequately. WV in place. Call light within reach. Loan Mary RN - 07/07/2021 10:41 AM CDT Notified MDA Dr. Doan of patient's continued pain rated 10 post op. OK to give patient dilaudid in 0.5 mg increments and to allow up to 4 mg total dose here in PACU. Loan Mary RN - 07/07/2021 10:36 AM CDT PACU to Inpatient Nursing Handoff Patient Deann King is a 40 year old female who speaks Bruneian. Procedure Procedure(s): IRRIGATION AND DEBRIDEMENT, FOOT and ankle, wound vac exchange Surgeon(s) Primary: Eliud Olivera MD Resident - Assisting: Nathaniel Tinoco MD No Known Allergies Isolation Contact Past Medical History has a past medical history of Alcohol use disorder, severe, dependence (H), Anxiety, Chronic hepatitis C (H) (2017), Depressive disorder, Hypothyroid, and Opioid use disorder, severe, in sustained remission, on maintenance therapy (H). Anesthesia General Dermatome Level Preop Meds Not applicable Nerve block Not applicable Intraop Meds dexamethasone (Decadron) dexmedetomidine (Precedex): 12 mcg total fentanyl (Sublimaze): 100 mcg total hydromorphone (Dilaudid): 0.5 mg total ketamine (Ketalar): 25 mg given ondansetron (Zofran): last given at 0815 versed Local Meds No Antibiotics cefazolin (Ancef) - last given at 0825 Pain Patient Currently in Pain: yes PACU meds fentanyl (Sublimaze): 100 mcg (total dose) last given at 0951 hydromorphone (Dilaudid): 1.5 mg (total dose) last given at 1017 oxycodone (Roxicodone): 10 mg (total dose) last given at 1031 ativan 1 mg 0953 CLOCK REPAIRER / epidural No Capnography Telemetry ECG Rhythm: Sinus rhythm Inpatient General Teller Ordered? No Labs Glucose Lab Results Component Value Date GLC 133 07/06/2021 GLC 98 01/11/2020 Hgb Lab Results Component Value Date HGB 10.4 07/06/2021 HGB 13.6 01/11/2020 INR Lab Results Component Value Date INR 1.39 07/06/2021 INR 1.14 01/11/2020 PACU Imaging Not applicable Wound/Incision Incision/Surgical Site 07/07/21 Right Ankle (Active) Incision Assessment UTV 07/07/21 1000 Closure CLAUDETTE 07/07/21 1000 Incision Drainage Amount None 07/07/21 1000 Dressing Intervention Clean, dry, intact 07/07/21 1000 Number of days: 0 Packing 07/07/21 Ankle Qty Placed: 3 (Active) Packing Assessment clean;dry 07/07/21 0930 Number of days: 0 CMS Equipment Not applicable Other LDA IV Access PICC Single Lumen Left (Active) Site Assessment WDL 07/07/21 1035 Line Status Infusing 07/07/21 1035 Extravasation? No 07/07/21 1035 Dressing Intervention Chlorhexidine patch;Transparent;Securing device 07/07/21 0055 Number of days: Blood Products Not applicable EBL 75 mL Intake/Output Date 07/07/21 0700 - 07/08/21 0659 Shift 0334-7871 4613-5255 4412-3236 24 Hour Total INTAKE I.V. 600 600 Shift Total 600 600 OUTPUT Shift Total Weight (kg) Drains / Duarte Urethral Catheter (Active) Tube Description UTV 07/07/21 0925 Catheter Care Done;Catheter wipes 07/07/21 0530 Collection Container Standard 07/07/21 0925 Securement Method Leg strap 07/07/21 0100 Urine Output 675 mL 07/07/21 0532 Number of days: Time of void PreOp Void Prior to Procedure: ([place]) (07/07/21 0720) PostOp Voided (mL): 650 mL (07/06/21 1950) Diapered? No Bladder Scan PO water Vitals B/P: (!) 161/96 T: 98.3 ??F (36.8 ??C) Temp src: Axillary P: Pulse: 87 (07/07/21 1030) R: 10 O2: SpO2: 97 % O2 Device: Nasal cannula (07/07/21 1030) Oxygen Delivery: 2 LPM (07/07/21 1030) Family/support present m0m n0t here Patient belongings Patient transported on bed DC meds/scripts (obs/outpt) Not applicable Inpatient Pain Meds Released? Yes Special needs/considerations None Tasks needing completion None LOAN MARY, RN ASCOM [id number] Ernesto Martínez MD - 07/07/2021 7:54 AM CDT Orthopaedic Surgery Progress Note 07/07/2021 S: No acute events overnight. Pain controlled. No fevers. Understands plan for OR O: Temp: (!) 100.8 ??F (38.2 ??C) Temp src: Oral BP: 126/75 Pulse: 79 Resp: 16 SpO2: 96 % O2 Device: None (Room air) Exam: Gen: No acute distress, resting comfortably in bed. Resp: Non-labored breathing MSK: RLE: - Wound vac holding suction - SILT tibial/sural/saphenous/DP/SP nerves - Fires TA, EHL, FHL, GaSC - foot wwp Recent Labs Lab 07/06/21 1534 WBC 5.7 HGB 10.4* PLT 243 CRP 65.0* Assessment: Deann King is a 40 year old female s/p right foot I&D and HWR x3 at OSH (06/30, 07/02, 07/04) transferred on 07/06 for further management. Cultures with MSSA Plan: - Admit to medicine. - Plan for OR: Irrigation and debridement of right foot and ankle and wound vac exchange on 07/07/21 -Consent: done -Pre-op labs: done -Medicine clearance: done - Anticoagulation/DVT prophylaxis: Hold pending OR - Antibiotics: Ancef IV - Labs: Continue to trend CRP and WBC - Imaging: None new - Activity: As tolerated. - Weight bearing: NWB on the RLE. - Pain control: Recommend multimodal pain control. - Diet: NPO - Follow-up: Pending OR. - Disposition: Pending OR. Patient discussed with Dr Olivera. Ernesto Martínez MD Orthopaedic Surgery PGY-4 Sam Garcia MD - 07/05/2021 9:53 PM CDT [facility] Transfer Triage Note Date of call: 07/05/21 Time of call: 9:54 PM Current Patient Location: [place] Current Level of Care: Med Surg Vitals:stable Diagnosis: Right ankle osteomyelitis due to MSSA status post multiple I&D with exposed tendon admitted 1 week ago. ON Acef with picline in place. Is COVID-19 a concern? No but she will be retested to night prior to transfer Reason for requested transfer: Further diagnostic work up, management, and consultation for specialized care Isolation Needs: None Outside Records: Not available Additional records may be faxed to [phone]. Transfer accepted: Yes Stability of Patient: Patient is vitally stable, with no critical labs, and will likely remain stable throughout the transfer process Level of Care Needed: Med Surg Telemetry Needed: None Expected Time of Arrival for Transfer: 8-24 hours Arrival Location: [facility] Recommendations for Management and Stabilization: Not needed Additional Comments: Patient status is too complex for this small hospital, she needs ortho and plastic and ID consultation. Hx of hep C and alcohol abuse. Sam Garcia MD documented in this encounter H&P Notes Rossana Odell CNP - 07/06/2021 2:39 PM CDT [facility] History and Physical - Hospitalist Service, [facility] TEAM 16 Date of Admission: 07/06/2021 Assessment & Plan Deann King is a 40 year old female with past medical history significant for opioid use disorder, alcohol use disorder, HCV, hypothyroidism, depression, anxiety, and tobacco abuse admitted on 07/06/21 from [facility] for further care of R ankle osteomyelitis by Orthopedics, Plastics, and Infectious Disease. # R ankle osteomyelitis # Ankle pain and immobility Presented to OSH with worsening R ankle pain and unable to walk x 1 week on 06/28. MRI 06/29 w/ extensive tibiotalar erosions w/ large joint effusion and synovitis, diffuse muscle and superficial soft tissue edema. S/p calcaneal hardware removal and underwent I&D x 3. Arthrocentesis attempted there without fluid retrieval. Wound cx positive for MSSA. Has exposed bone and tendon now with wound vac in place. - Ortho consult - Plastic Surgery consult - ID consult - Continue Ancef 2g Q8H IV for now - Continue wound vac - Pain control: continue Suboxone 4mg Q4H (increased from APPLICATION INTEGRATION ARCHITECT dose 4mg QID); scheduled APAP 975mg TID, Gabapentin 300mg HS, Robaxin 750mg TID, and oxycodone 5-10mg Q3H PRN per Ortho recs # MSSA Staph bacteremia - Blood cx positive at OSH. Initially treated with Vanc/Zosyn and transitioned to Ancef. TTE 06/29 neg for vegetation. CRP elevated at 65, increased from previous at OSH. Sed rate 97. No leukocytosis. - ID consult as above - IV Ancef for now, as above - Repeat blood cx in AM - Trend CRP, sed rate in 1-2 days - Monitor for fevers # HCV # ?Liver cirrhosis # Transaminitis # ?Hypervolemia, ascites HCV quant [id number] at OSH. AST 117, ALT 44, and AP 213 on 07/05. Tbili 1.6. Albumin 2.9. INR 1.39. On review of outside records there is mention of US abdomen completed on 06/29 but I unable to locate a report. Started on Lactulose and Spironolactone at OSH; discussed with patient, does not recall being prescribed these meds prior to admission. She currently has a duarte in place for monitoring urine output. - Continue Lactulose for now - Continue Spironolactone with hold parameters - Repeat CMP in AM - US abdomen in AM - I/Os, daily weights - Consider duarte removal in 1-2 days pending OR plan - Needs follow up with Hepatology outpatient # Encephalopathy - Per chart review, patient somnolent on admission and with periods of confusion early in admission. [place] to be toxic vs metabolic 2/2 ?withdrawal, infection, sepsis. Utox positive only for cannabinoids. Started on Lactulose at OSH. Appears resolved today on exam. - Monitor for sedation with pain meds - Will continue Lactulose as above # Hypokalemia # Hypomagnesemia In setting of sepsis, poor PO intake at OSH. - Mag, Phos, K ordered for AM # Hypothyroidism - Continue Levothyroxine 125mcg QAM. # Hx opioid use disorder # Chronic pain In remission, has been successfully managed on buprenorphine since 2009. On buprenorphine 4mg QID APPLICATION INTEGRATION ARCHITECT, increased to Q4H at OSH due to uncontrolled pain. Doing well with addition of Oxycodone. - Will consider Addiction Med consult to help with tapering to APPLICATION INTEGRATION ARCHITECT dose if needed # Pressure ulcers R buttocks, gluteal fold - Noted on admission at OSH to have skin redness at gluteal fold between thigh and buttocks. - WOCN consult # Alcohol use disorder - Noted in charting. Concern for withdrawal on admission to OSH, but ABT, Utox neg. [facility], seen on 05/04 for initial visit. Recommend to start Depakote and Clonidine at that time, unclear if taking. - Pharmacy consult for medication history/review # Dispo - SW consult for discharge planning, community resources. # Anemia - Hgb 10.4. Possibly 2/2 chronic illness, liver dysfunction. No e/o acute bleed. - Added iron studies - Continue folate supplementation # Tobacco abuse - Nicotine replacement per patient preference Diet: Regular Diet Adult DVT Prophylaxis: Pneumatic Compression Devices Duarte Catheter: Not present Central Lines: None Cardiac Monitoring: None Code Status: Full Code Clinically Significant Risk Factors Present on Admission Disposition Plan Expected Discharge: Anticipated discharge location: Awaiting care coordination huddle Delays: The patient's care was discussed with the Attending Physician, Dr. Jaime Rae. Rossana Odell [facility] Hospitalist Service, [address] Securely message with the DocsInk Console (learn more here) Text page via [facility] Paging/Directory Please see signed in provider for up to date coverage information Chief Complaint I'm doing okay, having some pain History is obtained from the patient and chart review. History of Present Illness Deann King is a 40 year old female with past medical history significant for opioid use disorder, alcohol use disorder, HCV, hypothyroidism, depression, anxiety, and tobacco abuse admitted on 07/06/21 from [facility] for further care of R ankle osteomyelitis by Orthopedics, Plastics, and Infectious Disease. Deann is resting in bed. She reports pain in her R ankle that is ongoing. Anxious about plan for continued management. She doesn't remember much from her first 1- 2 days in the hospital at [place]. She understands that she has an infection in her ankle and in her bloodstream. Currently she denies chest pain, dyspnea, fevers, and chills. Denies abdominal pain. Having BMs. Currently has a duarte in place, but doesn't recall issues with urinary retention. Review of Systems The 10 point Review [...] So Luciano MD; Location: [facility] OR ??? FIELD UNDERWRITER SURGERY ??? ORTHOPEDIC SURGERY ??? THORACIC SURGERY Social [...] Prescriptions Last Dose Informant Patient Reported? Taking? buprenorphine (SUBUTEX) 8 MG SUBL sublingual tablet No No Sig: Place 1 tablet (8 mg) under the tongue 3 times daily cholecalciferol 50 MCG (2000 UT) tablet No No Sig: Take 1 tablet (50 mcg) by mouth daily co-enzyme Q-10 100 MG CAPS capsule Self Yes No Sig: Take 100 mg by mouth daily folic acid (FOLVITE) 1 MG tablet No No Sig: Take 1 tablet (1 mg) by mouth daily gabapentin (NEURONTIN) 100 MG capsule No No Si-2 po bid and 3 po qhs Patient not taking: Reported on 02/28/2021 ibuprofen (ADVIL/MOTRIN) 800 MG tablet No No Sig: Take 1 tablet (800 mg) by mouth every 8 hours as needed for moderate pain levothyroxine (SYNTHROID/LEVOTHROID) 125 MCG tablet Self No No Sig: Take 1 tablet (125 mcg) by mouth every morning multivitamin w/minerals (THERA-VIT-M) tablet No No Sig: Take 1 tablet by mouth daily naloxone (NARCAN) 4 MG/0.1ML nasal spray No No Sig: [place] 1 spray (4 mg) into one nostril alternating nostrils once as needed for opioid reversal every 2-3 minutes until assistance arrives nicotine (NICODERM CQ) 14 MG/24HR 24 hr patch No No Sig: Place 1 patch onto the skin every 24 hours Patient not taking: Reported on 02/28/2021 nicotine polacrilex (NICORETTE) 4 MG gum No No Sig: Place 1 each (4 mg) inside cheek every hour as needed for smoking cessation Patient not taking: Reported on 02/28/2021 omeprazole (PRILOSEC OTC) 20 MG EC tablet No No Sig: Take 1 tablet (20 mg) by mouth 2 times daily ondansetron (ZOFRAN-ODT) 4 MG ODT tab No No Sig: Take 1 tablet (4 mg) by mouth 2 times daily polyethylene glycol (MIRALAX) 17 GM/Dose powder No No Sig: Take 17 g by mouth daily thiamine (B-1) 100 MG tablet No No Sig: Take 1 tablet (100 mg) by mouth daily venlafaxine (EFFEXOR-XR) 150 MG 24 hr capsule No No Sig: Take 1 capsule (150 mg) by mouth daily vitamin B complex with vitamin C (VITAMIN B COMPLEX) tablet No No Sig: Take 1 tablet by mouth daily Facility-Administered Medications: None Allergies No Known Allergies Physical Exam Vital Signs: Temp: 98.3 ??F (36.8 ??C) Temp src: Axillary BP: 131/78 Pulse: 79 Resp: 18 Weight: 0 lbs 0 oz GENERAL: Alert and oriented x 3. Well nourished, well developed. No acute distress. HEENT: Normocephalic, atraumatic. Anicteric sclera. Mucous membranes moist. Mostly edentulous. CV: RRR. S1, S2. No murmurs appreciated. RESPIRATORY: Effort normal on room air. Lungs CTAB with no wheezing, rales, or rhonchi. GI: Abdomen distended but soft, bowel sounds present x all 4 quadrants. No tenderness, rebound, or guarding. NEUROLOGICAL: No focal deficits. Follows commands. Strength equal in upper and lower extremities. MUSCULOSKELETAL: No joint swelling or tenderness. Moves all extremities. EXTREMITIES: No gross deformities. No peripheral edema. Wound vac in place on R ankle. SKIN: Scattered skin abrasions on upper and lower extremities. No jaundice. No rashes. Data Data reviewed today: I reviewed all medications, new labs and imaging results over the last 24 hours. Recent Labs Lab 07/06/21 1534 06/30/21 0714 WBC 5.7 -- HGB 10.4* -- MCV 98 -- PLT 243 -- INR 1.39* -- NA 136 136 POTASSIUM 3.9 3.0* CHLORIDE 104 108 CO2 28 21 BUN 7 11 CR 0.46* 0.53 ANIONGAP 4 7 MACARENA 8.7 7.8* GLC 133* 92 ALBUMIN 2.1* 2.0* PROTTOTAL 7.2 6.2* BILITOTAL 1.3 2.8* ALKPHOS 206* 93 ALT 39 26 AST 73* 38 Most Recent 3 CBC's:Recent Labs Lab Test 07/06/21 1534 01/11/20 2117 04/01/19 1648 WBC 5.7 4.9 4.0 HGB 10.4* 13.6 15.4 MCV 98 95 97 PLT 243 119* 104* Most Recent 3 BMP's:Recent Labs Lab Test 07/06/21 1534 06/30/21 0714 01/14/20 0640 01/13/20 0742 01/11/207 NA 136 136 -- -- 140 POTASSIUM 3.9 3.0* 3.4 < > 3.0* CHLORIDE 104 108 -- -- 103 CO2 28 21 -- -- 31 BUN 7 11 -- -- 3* CR 0.46* 0.53 -- -- 0.61 ANIONGAP 4 7 -- -- 6 MACARENA 8.7 7.8* -- -- 8.7 GLC 133* 92 -- -- 98 < > = values in this interval not displayed. Most Recent 2 LFT's:Recent Labs Lab Test 07/06/21 1534 06/30/21 0714 AST 73* 38 ALT 39 26 ALKPHOS 206* 93 BILITOTAL 1.3 2.8* Most Recent 3 INR's:Recent Labs Lab Test 07/06/21 1534 01/11/207 02/28/19 1557 INR 1.39* 1.14 0.92 No results found for this or any previous visit (from the past 24 hour(s)). Associated attestation - Jaime Rae MD - 07/08/2021 2:35 PM CDT Physician Attestation IJaime MD, saw and evaluated Deann King as part of a shared OPTICAL GOODS DRILLING 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/PA visit. I personally reviewed the vital signs, medications, labs, and imaging. I personally performed the substantive portion of the medical decision making for this visit - please see the JOHNSON's documentation for full details. Beatty management decisions made by me and carried out under my direction: # R ankle wound, osteomyelitis # MSSA bacteremia # Elevated LFT # Hx opioid use disorder # Chronic pain # Alcohol use disorder - Iv ancef ID, ortho consult Wound vac mx Pain control Follow-up lft US abdomen Alcohol, tobacco abstinence. Jaime Rae MD Date of Service (when I saw the patient): 07/06/2021 documented in this encounter Consult Notes Javon Harmon MD - 07/16/2021 2:00 PM CDTAssociated Order(s): DERMATOLOGY IP CONSULT [facility] Inpatient Consult Dermatology Note- Teledermatology Consult Impression/Plan: 1. Suspected urticaria of the extremities History is limited at this time but based on photographic review her lesions appear urticarial in nature. There are numerous causes of urticaria including but not limited to the etiologies described below under Background. We cannot always elucidate an underlying cause. Because there does not seem to be any concerning systemic findings we would not recommend stopping/switching any current medications at this time. There is also reportedly a rash around her PICC site that is also pruritic but difficult to determine the morphology from photo. Would keep ACD on the ddx for this area. Would recommenda PO antihistamine regimen to see if this helps alleviate symptoms and re-evaluate. - Start Sravanthi BID (team prefers 90 mg BID dosing but could go up to 180 mg BID) and hydroxyzine 25mg at bedtime - OK to continue topical hydrocortisone PRN - Plan to see in person tomorrow 07/17/21 Background: Urticaria, or hives, is condition with a variety of potential causes that leads to release of histamine from mast cell, causing pink wheals that remain present for less than 24 hours. It can be acute or chronic (recurring episodes for >6 weeks). It can be triggered by allergic and non-allergic causes. Oftentimes, no culprit is identified. Medications that can cause urticaria include NSAIDs, opioids, penicillin and cephalosporin antibiotics, sulfa drugs, tetracyclines, contrast media, ACEI, etc. Chronic urticaria may be triggered by an autoimmune disease, physical stimuli, viral infection, or other systemic illnesses. Other associated factors include malignancy, endocrine abnormalities, environmental stimuli (stings, animal dander, sweating, sunlight etc), , foods, and parasitic infections. Urticaria can also present as a paraneoplastic phenomenon usually in association of cold urticaria as a result of cryoglobulins associated with myeloma or lymphoma. Cold urticaria without cryoglobulins has been reported in human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 WBCU <1 26* 0 7* 3 Imaging: No results found. Plan of Care - Leydi Cleary, PT - 07/23/2021 3:55 PM CDT Physical Therapy Discharge Summary Reason for therapy discharge: Discharged to transitional care facility. Progress towards therapy goal(s). See goals on Care Plan in [facility] electronic health record for goal details. Goals partially met. Barriers to achieving goals: limited tolerance for therapy. Therapy recommendation(s): Continued therapy is recommended. Rationale/Recommendations: to progress safety and independence with functional mobility prior to returning home. Plan of Care - Ally Pereyra RN - 07/23/2021 3:50 PM CDT Pt. discharged at 1545 via stretcher to [facility]. Pt. left with personal belongings. Called and gave report to RN taking pt on [facility]. Transport came to bring pt to [facility] with all of her belongings. Informed [facility] that pt has belongings in security. Plan of Care - Andrzej Hodge RN - 07/23/2021 1:09 PM CDT VS: VSS O2: >90 % RA Output: Voiding adequately on commode. WV 0 drainage Last BM: 07/23/21 Activity: SBA. Pt pivots to commode independently Up for meals? No Skin: Surgical wound R foot Pain: Oxycodone available CMS: Intact except Numbness to toes 4/5 R foot Dressing: CDI Diet: Regular LDA: PICC LUE SL Equipment: IV pole, commode Plan: Discharge to TCU at 1600 today Additional Info: Plan of Care - Alisa Ceja RN - 07/23/2021 5:05 AM CDT VS: BP 122/76 (BP Location: Right arm) Pulse 79 Temp 98.6 ??F (37 ??C) (Oral) Resp 16 Ht 1.676 m (5' 6) Wt 79.4 kg (175 lb) LMP 05/24/2016 (Approximate) SpO2 99% BMI 28.25 kg/m?? Pt denies chest pain. O2: >90% on RA. Lung sounds clear and equal bilaterally. Output: Voids spontaneously without difficulty Last BM: 07/20/21 per pt report. Bowel sounds active and pt reports passing flatus. Activity: NWB to RLE pt is independent to pivot to BSC. Up for meals? N/A Skin: R ankle wound, scattered bruising and scabs to all extremities. Rash to Lower extremities. Pain: Managed with scheduled Tylenol, PRN Atarax and Oxycodone. CMS: Numbness to R 4th and 5th toes. A&O x4 Dressing: Wound vac dressing - CDI Diet: Regular LDA: Single lumen picc to L arm - Blood return noted and SL Equipment: IV pole/pump, wound vac, BSC, Walker, and pt belongings. Plan: [facility] at 1100 AM today 07/23/21 per Care coordinators previous note. Additional Info: Plan of Care - Areli Schwartz RN - 07/22/2021 1:04 PM CDT VS: VSS O2: >90% on RA Output: Voiding adequately in BR Last BM: 6/3; +fl. Took senna and 1 lactulose this AM Activity: NWB RLE; ind using BSC, 1A with FWW for ambulation Up for meals? Yes Skin: WV R ankle; scattered bruises and abrasions Pain: 10mg oxycodone x2, hydroxyzine x2. Scheduled bupenorphine CMS: Numbness R 4th and 5th toes Dressing: CDI; re-wrapped GUS Diet: Regular LDA: PICC SL btw abx - receiving ancef q8h, stop date 08/21. TPA instilled with blood return Equipment: IV pole, WV, FWW, BSC Plan: [facility] 07/23 1099 Additional Info: Nicotine patch R shoulder Plan of Care - Alisa Ceja RN - 07/22/2021 5:57 AM CDT VS: BP 129/78 Pulse 72 Temp 97.8 ??F (36.6 ??C) (Oral) Resp 16 Ht 1.676 m (5' 6) Wt 79.4 kg (175 lb) LMP 05/24/2016 (Approximate) SpO2 98% BMI 28.25 kg/m?? Pt denies chest pain. O2: >90% on RA. Lung sounds clear and equal bilaterally. Output: Voids spontaneously without difficulty Last BM: 07/20/21 per pt report Activity: Independently pivots to BSC. Pt is NWB to RLE. Up for meals? N/A Skin: R ankle surgical incision. Scattered bruising to BUE. Scabs to BLE. Rash to BUE and BLE. Pain: Managed with scheduled Subutex and PRN Oxycodone. CMS: Numbness to R toes. A&O x4 Dressing: CDI Diet: Regular LDA: PICC to L upper arm - No blood return noted, SL. Equipment: IV pole/pump, and pt belongings. Plan: [facility] when a bed is available. Additional Info: Plan of Care - Vin Sims RN - 07/21/2021 2:36 PM CDT VS: BP 121/68 (BP Location: Right arm) Pulse 68 Temp 98.3 ??F (36.8 ??C) (Oral) Resp 16 Ht 1.676 m (5' 6) Wt 79.4 kg (175 lb) LMP 05/24/2016 (Approximate) SpO2 100% BMI 28.25 kg/m?? O2: >90% on room air. Denies SOB/N/V/chest pain Output: Voiding spontaneously on BSC Last BM: 07/20/21. Patient refusing lactulose this shift, but accepting of bowel meds. Activity: TTWB. Independent with stand-pivot transfers to BS. Ax1 with walker and gait belt for longer distance. Skin: Right ankle wound. Rash on BLE. Erythema skin below PICC line improving. Pain: Managed with schedule tylenol, robaxin, and PRN oxy CMS: Intact Dressing: CDI Diet: Regular diet LDA: Single lume PICC Wond Vac Equipment: IV pole/pump, wound vac, PCDs, BSC, walker, gait belt, call light within patient reach Plan: To discharge to TCU tomorrow Additional Info: Plan of Care - Jenise Mejia OT - 07/21/2021 2:31 PM CDT Occupational Therapy Discharge Summary Reason for therapy discharge: Discharged to transitional care facility. Progress towards therapy goal(s). See goals on Care Plan in [facility] electronic health record for goal details. Goals not met. Barriers to achieving goals: limited tolerance for therapy. Therapy recommendation(s): Continued therapy is recommended. Rationale/Recommendations: To increase IND and safety with ADLs. Plan of Care - Mik Yusuf RN - 07/19/2021 9:25 PM CDT VS: BP (!) 146/87 (BP Location: Right arm, Patient Position: Semi-Hammer's) Pulse 78 Temp (!) 96.5 ??F (35.8 ??C) (Oral) Resp 18 Ht 1.676 m (5' 6) Wt 79.4 kg (175 lb) LMP 05/24/2016 (Approximate) SpO2 96% BMI 28.25 kg/m?? O2: 96% at room air Output: Voids spontaneously without difficulty Last BM: 07/20/21. Patient reported having loose stool 4-5x today. Refused lactulose and senna this shift. Activity: Stand by assist. Pivot to bedside commode Up for meals Sat up in bed Skin: Right ankle wound. Rash on BLE. Erythema skin below PICC line improving. Pain: Managed by prn's CMS: Alert & oriented x4 Dressing: CDI. Diet: regular LDA: PICC on left upper arm. Saline locked after antibiotic. Wound vac running cont 125mmHg, output of 5ml. Previously has 150ml output inside cannister. Equipment: IV pole, bedside commode, wound vac, personal belongings Plan: Continue with plan of care Additional Info: Plan of Care - Janusz Dodd RN - 07/19/2021 4:09 PM CDT VS: VSS, pt denied CP or SOB. O2: Room air sat. > 90 %. Output: Voiding adequate amount in bedside commode. Last BM: 07/19/21 passing gas. Activity: Pivots self from the bed to the commode. Skin: Right ankle wound, erythema around PICC line improved,and rash on BLE. Pain: Comfortably manageable with PRN medication. CMS: Alert and oriented.Verbalizes needs appropriately. Dressing: WOC RN placed wound vac on R ankle continues at 125. Diet: Regular diet tolerating okay. LDA: Single lumen PICC line SL between antibiotic's. Equipment: Bedside commode, IV pole and personal belongings. Plan: TBD Additional Info: Plan of Care - Brigitte De Los Santos RN - 07/19/2021 7:27 AM CDT Status Note [id number] Patient A&Ox4, able to make needs known, using call light appropriately, slept between cares. Wound vac remains in place, patient does have some c/o pain to incision site rated 6/10, PRN oxy and robaxin given along with scheduled subutex. PICC remain in place, patent. Rash improved according to patient. Up to bedside commode ind. Call light within reach, bed in lowest position, continue with POC. Plan of Care - Janusz Dodd RN - 07/18/2021 4:51 PM CDT VS: VSS, pt denied CP or SOB. O2: Room air sat. Med 90's Output: Voiding adequate amount in bedside commode. Last BM: 07/17/21 passing gas. Activity: Pivots self from the bed to the commode. Skin: Right ankle wound, erythema around PICC line improved,and rash on BLE. Pain: Comfortably manageable with PRN medication. CMS: Alert and oriented. Verbalizes needs appropriately. Dressing: WOC RN placed wound vac on R ankle. Diet: Regular diet tolerating okay. LDA: Single lumen PICC line SL between antibiotic's. Equipment: Bedside commode, IV pole and personal belongings. Plan: TBD Additional Info: Plan of Care - Corey Delgado RN - 07/18/2021 6:37 AM CDT Problem: Infection Goal: Absence of Infection Signs and Symptoms Outcome: Ongoing, Progressing Intervention: Prevent or Manage Infection Recent Flowsheet Documentation Taken 07/18/2021 0400 by Corey Delgado RN Isolation Precautions: contact precautions maintained Taken 07/17/20212029 by Corey Delgado, RN Isolation Precautions: contact precautions maintained Problem: Bowel Motility Impaired (Surgery Nonspecified) Goal: Effective Bowel Elimination Outcome: Ongoing, Progressing Problem: Fluid and Electrolyte Imbalance (Surgery Nonspecified) Goal: Fluid and Electrolyte Balance Outcome: Ongoing, Progressing Problem: Plan of Care - These are the overarching goals to be used throughout the patient stay. Goal: Absence of Hospital-Acquired Illness or Injury Outcome: Met Intervention: Identify and Manage Fall Risk Recent Flowsheet Documentation Taken 07/18/2021399 by Corey Delgado RN Safety Promotion/Fall Prevention: activity supervised fall prevention program maintained nonskid shoes/slippers when out of bed Taken 07/17/20212029 by Corey Delgado RN Safety Promotion/Fall Prevention: activity supervised fall prevention program maintained nonskid shoes/slippers when out of bed Intervention: Prevent Skin Injury Recent Flowsheet Documentation Taken 07/18/2021 040 by Corey Delgado RN Body Position: position changed independently Taken 07/18/2021 0200 by Corey Delgado RN Body Position: position changed independently Taken 07/18/2021 by Corey Deglado RN Body Position: position changed independently Taken 07/17/20212029 by Corey Delgado RN Body Position: position changed independently Intervention: Prevent and Manage VTE (Venous Thromboembolism) Risk Recent Flowsheet Documentation Taken 07/18/2021399 by Corey Delgado RN VTE Prevention/Management: SCDs (sequential compression devices) off Taken 07/17/20212029 by Corey Delgado RN VTE Prevention/Management: SCDs (sequential compression devices) off Activity Management: activity adjusted per tolerance Intervention: Prevent Infection Recent Flowsheet Documentation Taken 07/18/2021399 by Corey Delgado RN Infection Prevention: environmental surveillance performed equipment surfaces disinfected rest/sleep promoted Taken 07/17/20212029 by Corey Delgado RN Infection Prevention: environmental surveillance performed equipment surfaces disinfected rest/sleep promoted Problem: Ongoing Anesthesia Effects (Surgery Nonspecified) Goal: Anesthesia/Sedation Recovery Intervention: Optimize Anesthesia Recovery Recent Flowsheet Documentation Taken 07/18/2021 0400 by Corey Delgado RN Safety Promotion/Fall Prevention: activity supervised fall prevention program maintained nonskid shoes/slippers when out of bed Taken 07/17/20212029 by Corey Delgado RN Safety Promotion/Fall Prevention: activity supervised fall prevention program maintained nonskid shoes/slippers when out of bed Problem: Respiratory Compromise (Surgery Nonspecified) Goal: Effective Oxygenation and Ventilation Intervention: Optimize Oxygenation and Ventilation Recent Flowsheet Documentation Taken 07/18/20210 by Corey Delgado RN Head of Bed (HOB) Positioning: HOB at 20-30 degrees Taken 07/18/2021 0200 by Corey Delgado RN Head of Bed (HOB) Positioning: HOB at 20-30 degrees Taken 07/18/2021 0000 by Corey Delgado RN Head of Bed (HOB) Positioning: HOB at 20-30 degrees Taken 07/17/2021 2030 by Corey Delgado RN Head of Bed (HOB) Positioning: HOB at 20-30 degrees Goal Outcome Evaluation: Plan of Care - Janusz Dodd RN - 07/17/2021 7:20 PM CDT VS: VSS, pt denied CP or SOB. O2: Room air sat. Med 90's Output: Voiding adequate amount in bedside commode. Last BM: 07/17/21 passing gas. Activity: Pivots self from the bed to the commode walked to bathroom with walker and SBA during PT. Skin: Right ankle wound, erythema around PICC line and rash on BLE. Pain: Comfortably manageable with PRN medication. CMS: Alert and oriented. Verbalizes needs appropriately. Dressing: Dressing to right ankle, wrapped with gus wraps Diet: Regular diet tolerating okay. LDA: Single lumen PICC line to left deltoid area. Dressing changed, this afternoon by PICC RN. Equipment: Bedside commode, IV pole and personal belongings. Plan: TBD Additional Info: Plan of Care - Abel Amor RN - 07/17/2021 6:33 AM CDT VS: Temp: 99.2 ??F (37.3 ??C) Temp src: Oral BP: (!) 149/83 Pulse: 72 Resp: 16 SpO2: 96 % O2 Device:None (Room air) O2: 02 at 96% RA Output: Voids in bedside commode Last BM: 07/15 Activity: Up with SBA of 1 with gait belt. Pivots self from the bed to the commode Skin: Right ankle wound, erythema around PICC line Pain: States 8/10, scheduled pain medications given and prn Oxy CMS: Alert and oriented. Verbalizes needs appropriately. Dressing: Dressing to right ankle, wrapped with gus wraps Diet: REG diet LDA: Single lumen PICC line to left deltoid area. Dressing changed, previous one ws peeling off Equipment: Bedside commode, IV pole and pump, Plan: TBD Additional Info: PICC dressing changed last night( patient tends to peels to itch Plan of Care - Loretta Cedeno RN - 07/16/2021 4:44 AM CDT VS: BP 133/73 (BP Location: Left arm) Pulse 63 Temp 99.2 ??F (37.3 ??C) (Oral) Resp 17 Ht 1.676 m (5' 6) Wt 79.4 kg (175 lb) LMP 05/24/2016 (Approximate) SpO2 96% BMI 28.25 kg/m?? O2: O2 SATS >90% denies chest pain, or SBO Output: Voids adequately using bedside commode Last BM: 07/15/21 BS present all x4 quadrants Activity: Up independently to the commode Up for meals? no Skin: scattered scabs on arms and legs and wound to right ankle ankle gus wraps in place Pain: Pain managed with prn oxycodone CMS: AOX4, baseline numbness to right ankle Dressing: Right ankle dressing CDI gus wraps in place Diet: Regular diet LDA: PICC line L Arm Saline locked blood return noted Equipment: IV Pole Gait Belt, walker, bedside commode, personal belongings , call light Plan: TBD Additional Info: Pt is alert and oriented able to communicate needs . We will continue to monitor and update. Plan of Care - Janusz Dodd RN - 07/15/2021 5:27 PM CDT From 07 am to 11:30 pm VS: VSS, pt denied CP or SOB. O2: Room air sat. >90%. Output: Voids adequately using bedside commode Last BM: 07/15/21 passing gas. Activity: Independent up to [facility] pivoting. Up for meals? Sitting up in bed to eat. Skin: scattered scabs on arms and legs and wound to right ankle gus wraps in place Pain: Pain managed with oxycodone po PRN and scheduled tylenol. CMS: Intact except baseline numbness to right ankle Dressing: dressing CDI on R ankle gus wraps in place dressing changed POC this evening. Diet: Regular diet tolerating without N/V. LDA: PICC line SL between antibiotic's and PICC line dressing changed. Equipment: IV Pole Gait Belt, walker, bedside commode, and personal belongings. Plan: TBD. Additional Info: pt sleeping between care, makes need known as call light is within reach. Pharmacy-Vancomycin Dosing Service - Iker Caldwell [facility] - 07/15/2021 7:40 AM CDT Pharmacy Vancomycin Note Date of Service July 15, 2021 Patient's 1980 40 year old, female Indication: Bone and Joint Infection Day of Therapy: Started 07/11/2021 Current vancomycin regimen: 1500 mg IV q12h Current vancomycin monitoring method: AUC Current vancomycin therapeutic monitoring goal: 400-600 mg*h/L [employer] Prediction of Current Vancomycin Regimen Regimen: 1500 mg IV every 12 hours. Start time: 10:53 on 07/15/2021 Exposure target: AUC24 (range)400-600 mg/L.hr AUC24,ss: 554 mg/L.hr Probability of AUC24 > 400: 99 % Ctrough,ss: 15.8 mg/L Probability of Ctrough,ss > 20: 11 % Probability of nephrotoxicity (Lodise CYDNEY 2008): 11 % Current estimated CrCl = Estimated Creatinine Clearance: 124.1 mL/min (based on SCr of 0.64 mg/dL). Creatinine for last 3 days 07/13/2021: 5:40 AM Creatinine 0.63 mg/dL 07/14/2021: 5:30 AM Creatinine 0.62 mg/dL 07/15/2021: 6:09 AM Creatinine 0.64 mg/dL Recent Vancomycin Levels (past 3 days) 07/13/2021: 5:40 AM Vancomycin 18.8 mg/L 07/15/2021: 6:09 AM Vancomycin 20.6 mg/L Vancomycin IV Administrations (past 72 hours) vancomycin (VANCOCIN) 1,500 mg in sodium chloride 0.9 % 250 mL intermittent infusion (mg) 1,500 mg New Bag 07/14/21 2253 1,500 mg New Bag 1044 1,500 mg New Bag 07/13/21 2236 1,500 mg New Bag 1033 1,500 mg New Bag 07/12/21 2159 1,500 mg New Bag 1033 Nephrotoxins and other renal medications (From now, onward) Start Dose/Rate Route Frequency Ordered Stop 07/12/21 0900 piperacillin-tazobactam (ZOSYN) 4.5 g vial to attach to NS 100 mL bag Note to Pharmacy: For [facility], [facility] and [facility]: For Zosyn-naive patients, use the Zosyn initial dose + extended infusion order panel. 4.5 g over 30 Minutes Intravenous EVERY 6 HOURS 07/12/21 0830 07/11/21 1030 vancomycin (VANCOCIN) 1,500 mg in sodium chloride 0.9 % 250 mL intermittent infusion 1,500 mg over 90 Minutes Intravenous EVERY 12 HOURS 07/11/21 1006 Contrast Orders - past 72 hours (72h ago, onward) None Interpretation of levels and current regimen: Vancomycin level is reflective of AUC 400-600 Has serum creatinine changed greater than 50% in last 72 hours: No Renal Function: Stable Plan: 1. Continue Current Dose 2. Vancomycin monitoring method: AUC 3. Vancomycin therapeutic monitoring goal: 400-600 mg*h/L 4. Pharmacy will check vancomycin levels as appropriate in 1-3 Days. 5. Serum creatinine levels will be ordered daily for the first week of therapy and at least twice weekly for subsequent weeks. IKER CALDWELL [facility] Plan of Care - Mik Yusuf RN - 07/15/2021 1:25 AM CDT VS: BP 121/81 (BP Location: Right arm) Pulse 62 Temp 98.1 ??F (36.7 ??C) (Oral) Resp 16 Ht 1.676 m (5' 6) Wt 79.4 kg (175 lb) LMP 05/24/2016 (Approximate) SpO2 98% BMI 28.25 kg/m?? O2: 98% at room air Output: Voids without difficulty. Pivots to bedside commode Last BM: 07/12/21 Activity: Up independent. Skin: R ankle wound. Old patches of rash on bilateral leg. Scabs all over body. Pain: Frequently ask for pain medication. Pain managed by 5mg oxycodone CMS: Disoriented to time. Numbness to Right ankle. Dressing: Wound dressing change done this shift, CDI Diet: Regular LDA: PICC single lumen, saline locked after antibiotic Equipment: IV pole, bedside commode, call light, personal belongings Plan: IV pole, bedside commode, walker, gait belt, call light, wound dressing supply, personal belongings Additional Info: MRSA contact precaution maintained CHG wipes done, gown and linen changed at 0530hr 07/15 Plan of Care - Janusz Dodd RN - 07/14/2021 5:50 PM CDT VS: VSS, pt denied CP or SOB. O2: Room air sat. >90%. Output: Voids adequately using bedside commode Last BM: 07/13/21 passing gas. Activity: Independent up to [facility] pivoting. Up for meals? Sitting up in bed to eat. Skin: scattered scabs on arms and legs and wound to right ankle gus wraps in place Pain: Pain managed with po PRN medication. CMS: Intact except baseline numbness to right ankle Dressing: dressing CDI on R ankle gus wraps in place dressing changed POC. Diet: Regular diet LDA: PICC line L Arm okay to use per PICC RN verified placement with x-ray since PICC was placed before in different care facility. Equipment: IV Pole Gait Belt, walker, bedside commode, and personal belongings. Plan: TBD. Additional Info: Plan of Care - Mik Yusuf RN - 07/14/2021 5:47 AM CDT VS: BP (!) 140/80 (BP Location: Right arm, Patient Position: Semi-Hammer's) Pulse 58 Temp 98.9 ??F (37.2 ??C) (Oral) Resp 16 Ht 1.676 m (5' 6) Wt 79.4 kg (175 lb) LMP 05/24/2016 (Approximate) SpO2 97% BMI 28.25 kg/m?? O2: 97% at room air Output: Voids spontaneous without difficulty Last BM: 07/13/21 Activity: Stand by assist of 1 Up for meals yes Skin: Bruise to left carl, rash to left calf Wound on R ankle Pain: Managed by prn's CMS: Numbness on right ankle, disoriented to time Dressing: CDI, dressing change done this shift Diet: Regular LDA: PICC line single lumen, saline locked after IV antibiotic Equipment: IV pole, walker, bedside commode, personal belongings Plan: Continue plan of care Additional Info: Plan of Care - Janusz Dodd RN - 07/13/2021 1:02 PM CDT VS: VSS, pt denied CP or SOB. O2: Room air sat. >90%. Output: Voids adequately using bedside commode Last BM: 07/13/21 passing gas. Activity: A 1 with gait belt and walker Up for meals? Sitting up in bed to eat. Skin: Bruise to left carl, scattered scabs on arms and legs and wound to right ankle gus wraps in place Pain: Pain managed with po PRN medication. CMS: Intact except baseline numbness to right ankle Dressing: dressing CDI on R ankle gus wraps in place changed today. Diet: Regular diet LDA: PICC line L Arm Saline locked between antibiotics. Equipment: IV Pole Gait Belt, walker, bedside commode, and personal belongings. Plan: TBD. Additional Info: Pharmacy-Vancomycin Dosing Service - Lurdes Sierra [facility] - 07/13/2021 8:48 AM CDT Pharmacy Vancomycin Note Date of Service July 13, 2021 Patient's 1980 40 year old, female Indication: Bone and Joint Infection Day of Therapy: since 07/11/21 Current vancomycin regimen: 1500 mg IV q12h (18.9mg/kg/dose) Current vancomycin monitoring method: AUC Current vancomycin therapeutic monitoring goal: 400-600 mg*h/L Insight[employer] Prediction of Current Vancomycin Regimen Loading dose: N/A Regimen: 1500 mg IV every 12 hours. Start time: 09:46 on 07/13/2021 Exposure target: AUC24 (range)400-600 mg/L.hr AUC24,ss: 554 mg/L.hr Probability of AUC24 > 400: 97 % Ctrough,ss: 15.8 mg/L Probability of Ctrough,ss > 20: 19 % Probability of nephrotoxicity (Lodise CYDNEY 2008): 11 % Current estimated CrCl = Estimated Creatinine Clearance: 126.1 mL/min (based on SCr of 0.63 mg/dL). Creatinine for last 3 days 07/11/2021: 9:09 AM Creatinine 0.58 mg/dL 07/12/2021: 6:57 AM Creatinine 0.57 mg/dL 07/13/2021: 5:40 AM Creatinine 0.63 mg/dL Recent Vancomycin Levels (past 3 days) 07/13/2021: 5:40 AM Vancomycin 18.8 mg/L Vancomycin IV Administrations (past 72 hours) vancomycin (VANCOCIN) 1,500 mg in sodium chloride 0.9 % 250 mL intermittent infusion (mg) 1,500 mg New Bag 07/12/212158 1,500 mg New Bag 1033 1,500 mg New Bag 07/11/218 1,500 mg New Bag 1033 Nephrotoxins and other renal medications (From now, onward) Start Dose/Rate Route Frequency Ordered Stop 07/12/21 0900 piperacillin-tazobactam (ZOSYN) 4.5 g vial to attach to NS 100 mL bag Note to Pharmacy: For [facility], [facility] and [facility]: For Zosyn-naive patients, use the Zosyn initial dose + extended infusion order panel. 4.5 g over 30 Minutes Intravenous EVERY 6 HOURS 07/12/21 0830 07/11/21 1030 vancomycin (VANCOCIN) 1,500 mg in sodium chloride 0.9 % 250 mL intermittent infusion 1,500 mg over 90 Minutes Intravenous EVERY 12 HOURS 07/11/21 1006 Contrast Orders - past 72 hours (72h ago, onward) None Interpretation of levels and current regimen: Vancomycin level is reflective of AUC 400-600 Has serum creatinine changed greater than 50% in last 72 hours: No Urine output: unable to determine Renal Function: Stable Plan: 1. Continue Current Dose 2. Vancomycin monitoring method: AUC 3. Vancomycin therapeutic monitoring goal: 400-600 mg*h/L 4. Pharmacy will check vancomycin levels as appropriate in 1-3 Days. 5. Serum creatinine levels will be ordered daily for the first week of therapy and at least twice weekly for subsequent weeks. Lurdes Sierra, PharmD, BCPS Plan of Care - Loretta Cedeno RN - 07/13/2021 4:02 AM CDT VS: BP 127/84 (BP Location: Right arm) Pulse 72 Temp 99 ??F (37.2 ??C) (Oral) Resp 16 Ht 1.676 m (5' 6) Wt 79.4 kg (175 lb) LMP 05/24/2016 (Approximate) SpO2 96% BMI 28.25 kg/m?? O2: O2 SATS >90% denies chest pain, or SBO Output: Voids adequately using bedside commode Last BM: 07/07/21BS present all x4 quadrants Activity: A 1 with gait belt and walker Up for meals? no Skin: Bruise to left carl, scattered scabs on arms and legs and wound to right ankle gus wraps in place Pain: Pain managed with prn oxycodone CMS: AOX4, baseline numbness to right ankle Dressing: Right ankle dressing CDI gus wraps in place Diet: Regular diet LDA: PICC line L Arm Saline locked blood return noted Equipment: IV Pole Gait Belt, walker, bedside commode, personal belongings , call light Plan: Continue with IV ABX , monitor and update with concerns Additional Info: Plan of Care - Jarvis Frank RN - 07/12/2021 11:17 PM CDT VS: BP 127/84 (BP Location: Right arm) Pulse 72 Temp 99 ??F (37.2 ??C) (Oral) Resp 16 Ht 1.676 m (5' 6) Wt 79.4 kg (175 lb) LMP 05/24/2016 (Approximate) SpO2 96% BMI 28.25 kg/m?? O2: 96% on room air. Denies SOB, CP or cough. Lung sounds clear Output: Voids without difficulty in bedside commode Last BM: 07/10/21 , bowel sounds active Activity: SBA with gait belt and walker Skin: Right ankle wound. Bruise to left carl. Scattered scabs all over body. Pain: Pain managed with Prn Oxycodone, And scheduled Tylenol, Gabapentin, Robaxin. CMS /Neuro: AO x 4. Pt report numbness to right foot Dressing: Right ankle wound new dressing done, CDI. GUS wrap Diet: regular diet LDA: PICC single Lumen, left upper arm. Dressing CDI. Dressing done. Equipment: IV pole/pump, call light, walker, gait belt , BSC and personal belongings Plan: Continue IV abx.. Discharge TBD Additional Info: Plan of Care - Sintia Arias RN - 07/12/2021 2:55 PM CDT Patient gave verbal consent to Sintia Swain RN for [facility] staff to speak with mother So Parker about her care. Plan of Care - Sintia Arias RN - 07/12/2021 10:20 AM CDT VS: BP 108/54 Pulse 89 Temp (!) 101.1 ??F (38.4 ??C) Resp 16 Ht 1.676 m (5' 6) Wt 79.4 kg(175 lb) LMP 05/24/2016 (Approximate) SpO2 98% BMI 28.25 kg/m?? Dr. Ulloa notified about temp of 101.1, patient administered scheduled tylenol. O2: Patient's SpO2 is 98%. Lung sounds are clear and equal bilaterally. Patient denies any shortnessof breath. Output: Patient voids spontaneously using bedside commode. Last BM: 07/10/21 Activity: Up with assist x 1, gait belt, walker. Up for meals? Up in bed for meals. Skin: Patient has scattered scabs all over body. Patient has bruise to left carl. Pain: Patient reported pain of 7 out of 10. Patient administered oxycodone 10mg x 1 on shift. CMS: Patient is A/O x 4. Patient has mild numbness to right ankle/foot. Dressing: Rolled gauze has dried drainage. GUS wrap is CDI. Diet: Regular diet. LDA: Left Upper PICC line is saline locked, flushes well. Dressing is peeling up at the side. Equipment: IV pole, capno, commode, walker, gait belt, patient personal belongings. Plan: Continue with plan of care. Possible TCU placement. Additional Info: Pt's Mother (So Parker) called Rn to discuss pt's slurred speech and worried this is due to her ammonia levels. Sintia Swain RN paged provider with message. So's phone number is . Patient have verbal consent for us to speak with her mother. Plan of Care - Yareli Cotton RN - 07/12/2021 6:20 AM CDT Pt. A&Ox4. VSS. Afebrile. Lung sounds CTA. Maintaining sats on RA. Bowel sounds active, LBM 07/10. CMS and neuro's are intact. Reports numbness in RLE. Denies nausea, shortness of breath, and chest pain. Pain managed w/ prn Oxycodone, hydroxyzine and ice applied. Voids spontaneously without difficulty in the BSC. Tolerating regular diet. R ankle dressing is CDI. Pt up with SBA to commode. PICC is patent and SL in L arm. Bilateral heels are elevated off the bed. Call light is within reach, pt ableto make needs known and is resting comfortably between cares. Will continue to monitor. Plan of Care - Jarvis Frank RN - 07/11/2021 10:02 PM CDT VS: BP 97/50 (BP Location: Right arm) Pulse 76 Temp 99.3 ??F (37.4 ??C) (Oral) Resp 16 Ht 1.676 m (5' 6) Wt 79.4 kg (175 lb) LMP 05/24/2016 (Approximate) SpO2 97% BMI 28.25 kg/m?? O2: 97% on room air. Denies SOB, CP or cough. Lung sounds clear Output: Voids without difficulty in bedside commode Last BM: 07/10/21 , bowel sounds active Activity: SBA with gait belt and walker Skin: Right ankle wound. Bruise to left carl. Scattered scabs all over body. Pain: Pain managed with Prn IV dilaudid , Oxycodone, And scheduled Tylenol, Gabapentin, Robaxin. CMS /Neuro: AO x 4. Pt report numbness to right foot Dressing: Right ankle wound new dressing done, CDI. UGS wrap Diet: regular diet LDA: PICC single Lumen, left upper arm. Dressing CDI. Wound vac d/c Equipment: IV pole/pump, call light, walker, gait belt , BSC and personal belongings Plan: Continue IV abx.. Discharge TBD Additional Info: Plan of Care - Sintia Arias RN - 07/11/2021 12:24 PM CDT VS: BP 98/58 Pulse 83 Temp (!) 101.9 ??F (38.8 ??C) (Oral) Resp 16 Ht 1.676 m (5' 6) Wt 79.4 kg (175 lb) LMP 05/24/2016 (Approximate) SpO2 97% BMI 28.25 kg/m?? O2: Patient SpO2 is 97% on Room Air. Patient denies any shortness of breath. Lung sounds are clear and equal bilaterally. Output: Patient voids spontaneously in bedside commode. Last BM: 07/10/21 Activity: Up with SBA, gait belt, walker Up for meals? Up in bed for meals. Skin: Patient has scattered scabs all over body. Patient has bruise on left carl. Pain: Patient reports pain of 7 out of 10 in right ankle. CMS: Patient is A/O x4. Patient has numbness to right ankle/foot. Dressing: Patient has GUS wrap over dressing (CDI) on right ankle. Diet: Regular diet. LDA: Left Upper Arm PICC- flushed well, dressing change completed by Leslie Darby RN on shift. CHG bath performed on shift. Wound Vac running at 125mmHg with no output on shift, still at 150mL. Equipment: IV pole, commode, walker, gait belt, patient personal belongings. Plan: Continue IV antibiotics/ plan of care. Possible discharge to TCU. Additional Info: Pharmacy-Vancomycin Dosing Service - Lurdes Sierra [facility] - 07/11/2021 10:11 AM CDT Pharmacy Vancomycin Initial Note Date of Service July 11, 2021 Patient's 1980 40 year old, female Indication: Bone and Joint Infection Current estimated CrCl = Estimated Creatinine Clearance: 137 mL/min (based on SCr of 0.58 mg/dL). Creatinine for last 3 days 07/09/2021: 12:22 PM Creatinine 0.55 mg/dL 07/11/2021: 9:09 AM Creatinine 0.58 mg/dL Recent Vancomycin Level(s) for last 3 days No results found for requested labs within last 72 hours. Vancomycin IV Administrations (past 72 hours) No vancomycin orders with administrations in past 72 hours. Nephrotoxins and other renal medications (From now, onward) Start Dose/Rate Route Frequency Ordered Stop 07/11/21 1030 vancomycin (VANCOCIN) 1,500 mg in sodium chloride 0.9 % 250 mL intermittent infusion 1,500 mg over 90 Minutes Intravenous EVERY 12 HOURS 07/11/21 1006 Contrast Orders - past 72 hours (72h ago, onward) None Insight[employer] Prediction of Planned Initial Vancomycin Regimen Loading dose: N/A Regimen: 1500 mg IV every 12 hours. Start time: 10:30 on 07/11/2021 Exposure target: AUC24 (range)400-600 mg/L.hr AUC24,ss: 551 mg/L.hr Probability of AUC24 > 400: 81 % Ctrough,ss: 15.8 mg/L Probability of Ctrough,ss > 20: 33 % Probability of nephrotoxicity (Lodise CYDNEY 2008): 11 % Plan: 1. Start vancomycin 1500 mg IV q12h (18.9mg/kg dose). Other option was 1250mg IV Q12H, but the predicted AUC was 459 @64%. [place] that since patient is younger with good kidney function, she can handle the higher dose. FYI ordering the vanco dose was delayed ~90 minutes while waiting for a patient weight. The last weight was in November 2020, so that was too far out to use. 2. Vancomycin monitoring method: AUC 3. Vancomycin therapeutic monitoring goal: 400-600 mg*h/L 4. Pharmacy will check vancomycin levels as appropriate in 1-3 Days. 5. Serum creatinine levels will be ordered daily for the first week of therapy and at least twice weekly for subsequent weeks. Lurdes Sierra, PharmD, BCPS Plan of Care - Suze Holley RN - 07/11/2021 1:44 AM CDT VS: VSS. O2: >90% on RA Output: Voiding without difficulty in commode Last BM: 07/10 Activity: Up with 1 assist GB and walker Skin: R ankle surgical incision Pain: Oxycodone. CMS: Intact Dressing: CDI Diet: Regular LDA: PICC SL btw abx Equipment: IV pole Plan: TBD Additional Info: Plan of Care - Meredith Berumen RN - 07/10/2021 7:26 PM CDT Goal Outcome Evaluation: Plan of Care Reviewed With: patient Overall Patient Progress: no change VS: VSS. Denies CP/SOB. Pt has been very sleepy this shift, dosing off mid conversation at times. MD[place]. Scheduled and PRN meds spaced out. Oriented x4. Pt will fall asleep and twitch and talk in her sleep (she reports this is her baseline?). O2: >90% on RA Output: Voiding adequate amounts w/o pain or difficulty Last BM: 07/10 Activity: Up with 1 assist GB and walker Up for meals? Declined Skin: R ankle surgical incision Pain: Pain in R ankle, managing with PRN oxy and scheduled robaxin, tylenol and gabapentin. CMS: Intact Dressing: CDI, Wound Vac dressing changed by WOC today Diet: Regular, tolerating well LDA: PICC SL btw abx Equipment: IV pole Plan: TBD Additional Info: Plan of Care - Loretta Cedeno RN - 07/10/2021 6:32 AM CDT VS: Blood pressure 130/75, pulse 80, temperature 100.4 ??F (38 ??C), temperature source Oral, resp. rate 18, last menstrual period 05/24/2016, SpO2 96 %, not currently . O2: O2 SATS >90% denies chest pain, or SBO Output: Voids adequately using bedside commode Last BM: 07/07/21BS present all x4 quadrants Activity: A 1 with gait belt and walker Up for meals? no Skin: Bruise to left carl, and scattered scabs on arms and legs and wound right ankle Pain: Pain managed with prn oxycodone CMS: AOX4, numbness to right ankle Dressing: CDI gus wraps in place Diet: Regular diet LDA: PICC line L Arm blood return noted SL Equipment: IV Pole Gait Belt, walker, wound vac running at 125 mmHg. Plan: Continue to monitor and update Additional Info: Plan of Care - Yani Preciado RN - 07/09/2021 10:24 PM CDT Goal Outcome Evaluation: VS: BP 137/64 (BP Location: Left arm) Pulse 74 Temp 98.9 ??F (37.2 ??C) (Oral) Resp 16 LMP 05/24/2016 (Approximate) SpO2 94% Temp lower to 98.9 O2: Sats >90% on RA. Output: Voiding without difficulty to bedside commode. Last BM: LBM 07/08 per pt report. Activity: SBA. Pivoting to bedside commode independently. Uses walker and gait belt. Skin: Bruises, scabs and incision. Pain: Pain managed with prn oxycodone, schedule tylenol and robaxin. Neuro: Intact. Numbness on left foot due to surgery. Dressing: Right ankle/foot GUS wrap CDI. Diet: Tolerating regular diet. LDA: PICC flushes and Sl into L upper arm. Wound vac running at 125 mmgH Equipment: Walker, gait belt, wound vac canister and patients belongings. Plan: TBD. Will continue to monitor. Additional Info: Plan of Care - Sintia Arias RN - 07/09/2021 1:47 PM CDT VS: BP 125/62 Pulse 90 Temp (!) 100.5 ??F (38.1 ??C) (Oral) Resp 16 LMP 05/24/2016 (Approximate) SpO2 96% Patient's temp 102.3 at beginning of shift. Scheduled tylenol given, temp retaken at 100.5, Dr. Rae notified. O2: SpO2 is 96% on Room air. Patient denies any shortness of breath. Lung sounds are clear and equalbilaterally. Output: Patient voids spontaneously on bedside commode. Last BM: 07/07/21- Per Patient Report Activity: Assist x 1, gait belt, walker. Up for meals? Up in bed for meals. Skin: Patient has scattered scabs over arms and legs. Patient has as bruise to her left carl. Pain: Patient reports pain of 6 to 7 out of 10 in right ankle. CMS: Patient is A/O x 4. Patient reports numbness to right ankle. Dressing: Patient has GUS bandage in place which is CDI Diet: Regular diet LDA: Left Upper Arm PICC, flushes well, blood return noted, CHG bath completed on shift. Patient haswound vac in place to right foot, 125mmHg. Equipment: IV pole, patient personal belongings. Plan: Monitor temp, continue IV antibiotics. Additional Info: Patient needs UA sent to lab. Plan of Care - Moshe De La Rosa RN - 07/09/2021 3:44 AM CDT Patient A/Ox4, pleasant but a little lethargic. Denies CP, SOB, dizziness/LH. LSCTA. +fl/BS. Voidingvery well in commode, pivot/SBA. CMS intact. Dressing to foot/ankle area CDI, wound vac running. Tolerating regular diet without NV, pt grazing on a tray in the room. Activity level is fair, pt pivots well to commode but reportedly has not walked much. IV PICC in place on L arm and working wonderfully. Pain rated as seemingly tolerable throughout shift, managed with oxycodone PRN and atarax PRN. Unclear dispo. Patient has demonstrated ability to call appropriately. Patient is resting with call light within reach. Will continue to monitor. Plan of Care - Alice Whelan RN - 07/08/2021 7:38 PM CDT VS: BP 133/81 (BP Location: Right arm) Pulse 71 Temp 99.6 ??F (37.6 ??C) (Oral) Resp 16 LMP 05/24/2016 (Approximate) SpO2 97% O2: Stable on room air Output: Voids adequately in commode, bladder scanned for 26ml Last BM: 07/06/21 Activity: Up with SBA, turning and pivoting to commode Up for meals? Yes Skin: Scabbing and scarring on BLE, surgical incision right ankle Pain: Managed with oral medications CMS: Intact Dressing: CDI Diet: Regular, tolerating well, keeping trays in the room until next one becomes available to snack on LDA: PICC SL, wound vac at 125mmHg Equipment: IV pole, personal belongings, call light within reach, wound vac Plan: TBD Additional Info: Plan of Care - Janusz Dodd RN - 07/08/2021 2:19 PM CDT VS: VSS, pt denied CP or SOB. O2: On room air sat. Upper 90's. Output: Duarte dcd about 02:45 pm not void yet. Last BM: 07/06. Activity: Up to BS with assist of one. Skin: Incision/ wound VAC, scabs right inner thigh/buttock. Pain: Comfortably manageable with PRN medication. Neuro: CMS and neuro intact. Dressing: CDI. Diet: Regular. LDA: PICC left arm SL, wound VAC at 125 continues. Equipment: IV pole, CAPNO, and personal belongings. Plan: TBD. Additional Info: Plan of Care - Leydi Naranjo RN - 07/08/2021 6:59 AM CDT VS: Stable except respirations 6-7 at times when pt sedated, capno on. O2: RA, capno on. Output: Duarte draining adequately. Last BM: 07/06. Activity: Pt refused, has not been up yet. Skin: Incision/drain, scabs right inner thigh/buttock. Pain: Pain in right ankle managed with oxycodone and scheduled subutex. One dose of scheduled subutex held when unable to wake pt and her respirations were 7. Neuro: Pt very difficult to arouse for several hours and then pt woke up and has been frequently asking for pain meds since. A/Ox4 when awake. Pt denies numbness and tingling. Dressing: CDI. Diet: Regular. LDA: PICC left arm SL. WV cont at 125 with no new output. Duarte. Equipment: IV pole, capno, [place], call light within reach. Plan: Continue to monitor. Additional Info: Plan of Care - Alice Whelan RN - 07/07/2021 3:10 PM CDT VS: BP 136/79 Pulse 97 Temp 98 ??F (36.7 ??C) (Axillary) Resp 9 LMP 05/24/2016 (Approximate) SpO2 97% O2: Stable on room air Output: Duarte catheter in place, Last BM: 07/06/21 Activity: Up for meals? Yes Skin: Scabbing to knees, surgical wound R ankle Pain: Managed with oral medications, pt appeared somnolent at beginning of shift, narcotics were skipped a dose and action was okayed per provider CMS: Pt significantly sleepy at beginning of shift - unable to hold her eyes open or respond to questions - otherwise intact rest of shift Dressing: CDI Diet: Regular, tolerated well LDA: PICC SL, duarte catheter draining well, necessity to be reassessed tomorrow AM per provider, wound vac 125mmHg ~25ml bloody, bright red drainage Equipment: IV pole, wound vac Plan: TBD Additional Info: Brief Op Note - Nathaniel Tinoco MD - 07/07/2021 9:19 AM CDT [facility] Brief Operative Note Pre-operative diagnosis: Ankle abscess [L02.419] Post-operative diagnosis Same as pre-operative diagnosis Procedure: Procedure(s): IRRIGATION AND DEBRIDEMENT, FOOT and ankle, wound vac exchange Surgeon: Surgeon(s) and Role: * Eliud Olivera MD - Primary * Nathaniel Tinoco MD - Resident - Assisting Anesthesia: General Estimated Blood Loss: 25mL Drains: Wound vac in place @ 125mmHg Specimens: ID Type Source Tests Collected by Time Destination A : Right ankle Wound Ankle, Right ANAEROBIC BACTERIAL CULTURE ROUTINE, AEROBIC BACTERIAL CULTURE ROUTINE Nathaniel Tinoco MD 07/07/2021 8:41 AM B : Right heel #1 Tissue Heel, Right ANAEROBIC BACTERIAL CULTURE ROUTINE, AEROBIC BACTERIAL CULTURE ROUTINE Nathaniel Tinoco MD 07/07/2021 8:42 AM C : Right heel #2 Tissue Heel, Right ANAEROBIC BACTERIAL CULTURE ROUTINE, AEROBIC BACTERIAL CULTURE ROUTINE Nathaniel Tinoco MD 07/07/2021 8:43 AM Findings: Please see op note. Complications: None. Implants: * No implants in log * Assessment: Deann King is a 40 year old female s/p right foot I&D and HWR x3 at OSH (06/30, 07/02, 07/04) transferred on 07/06 for further management. Cultures with MSSA. NOW s/p R ankle/foot I&D + wound vac application with Dr. Olivera on 07/07/2021. ?? Plan: - Medicine Primary - Anticoagulation/DVT prophylaxis:??OK to resume DVT ppx on POD#1; defer chemoprophylaxis to primary. Would recommend ASA 162mg every day. - Antibiotics:??Ancef IV; appreciate ID recommendations - Labs: Continue to trend CRP and WBC - Cultures: Follow intra-op culture results - Imaging:??No additional imaging needed at this time - Activity:??As tolerated. - Weight bearing:??NWB on the RLE. - Pain control:??Recommend multimodal pain control. - Diet:??ADAT - Follow-up:??TBD - Disposition:??TBD ?? Nathaniel Tinoco MD Orthopaedic Surgery, PGY-4 Op Note - Eliud Olivera MD - 07/07/2021 8:00 AM CDT Images from the original note were not included. DATE OF SURGERY: 07/07/2021 PREOPERATIVE DIAGNOSIS: Right ankle abscess POSTOPERATIVE DIAGNOSIS: Right ankle abscess PROCEDURE: IRRIGATION AND DEBRIDEMENT, FOOT and ankle, wound vac exchange STAFF SURGEON: Artemio Olivera MD. ANESTHESIA: General endotracheal anesthesia ESTIMATED BLOOD LOSS: 25 mL WOUND VAC: Continuous at 125mmHg ([address]) WOUND DIMENSIONS: 7 x4 x2.5cm COMPLICATIONS: None Specimens: ID Type Source Tests Collected by Time Destination A : Right ankle Wound Ankle, Right ANAEROBIC BACTERIAL CULTURE ROUTINE, AEROBIC BACTERIAL CULTURE ROUTINE Nathaniel Tinoco MD 07/07/2021 8:41 AM ?? B : Right heel #1 Tissue Heel, Right ANAEROBIC BACTERIAL CULTURE ROUTINE, AEROBIC BACTERIAL CULTURE ROUTINE Nathaniel Tinoco MD 07/07/2021 8:42 AM ?? C : Right heel #2 Tissue Heel, Right ANAEROBIC BACTERIAL CULTURE ROUTINE, AEROBIC BACTERIAL CULTURE ROUTINE Nathaniel Tinoco MD 07/07/2021 8:43 AM ?? BRIEF PATIENT HISTORY: Deann King is a 40-year-old who was previously admitted to [facility] with sepsis and MSSA bacteremia secondary to a right lateral ankle abscess that tracked down to prior calcaneal hardware. She underwent 3 I&D's at [facility] prior to her transfer. Patient was transferred with wound vac in place. Discussed with the patient and the risks and benefitsof both nonoperative and operative treatment options. The patient had the opportunity for questions to be answered and wished to proceed to surgery. Informed consent was completed. DESCRIPTION OF PROCEDURE: The patient was identified in the preoperative area and the correct lower extremity was marked for surgery. The patient was taken to the operating room where she underwent general endotracheal anesthesia. The patient was positioned in the supine position with all bony prominences well padded. The wound vac was removed and pictures taken for chart. Upon removal of the wound VAC, there was cloudy sanguineous fluid expressed from the proximal aspect of the wound. The right lower extremity was prepped and draped in the usual sterile fashion. A timeout was held in accordance with hospital policy, confirming correct patient, side, site, procedure and administration of IV antibiotics prior to incision. An 18-gauge needle was introduced in both the anterior lateral, and anterior medial ankle arthroscopic portal sites in an attempt to aspirate the ankle joint. No fluid was aspirated. A hemostat was placed across the anterior aspect of the fibula and introduced into the ankle joint. No fluid was expressed. Cultures were obtained from the wound base 1 from within the ankle joint, and to from the heel. All cultures were sent for laboratory analysis. The wound base was closely inspected, and noted to have healthy granulation tissue. There is no further fluid expressible from the wound. And no overt evidence of residual infection. A curette was then utilized to sharply bride the wound base, and associated soft tissue/bone to a healthy bleeding base. The wound tracked deep to the calcaneus, and subtalar joint. The wound was then thoroughly irrigated utilizing 3 L of normal saline. Following irrigation, the wound base was again inspected, and found to have no residual tissue concerning for infection. E lectrocautery was utilized to obtain hemostasis. A wound VAC consisting of 3 black sponges was then applied, and the suction found to be adequate. A soft dressing was applied consisting of ABD, and Gus wrap. All counts were correct at end of case. There were no immediate complications noted. The patient was awakened from general anesthesia, and taken to the PACU in stable condition. Gio Olivera was present for critical aspects of this case and immediately available for allother portions. Eliud Olivera MD IMAGING: POSTOPERATIVE PLAN: Primary: Medicine Activity: Up with assist. Weight bearing status: NWB RLE Antibiotics: IV Ancef; appreciate ID recommendations Diet: Begin with clear fluids and progress diet as tolerated. DVT prophylaxis: ASA 162mg qD and mechanical while in the hospital Elevation: Elevate RLE on pillows as much as possible. Wound Care: Wound vac to remain in place @ 125mmHg until RTOR Pain management: transition from IV to orals as tolerated. X-rays: No additional imaging needed at this time Physical Therapy: ROM, ADL's. Occupational Therapy: ADL's. Labs: Trend inflammatory labs Cultures: Pending, follow culture results closely. Follow-up: TBD Future Appointments Date Time Provider Department [place] 07/07/2021 7:00 PM UR OT WAITLIST [facility] [place] 07/08/2021 8:00 AM Carmencita Li Pt, PT [facility] [place] Nathaniel Tinoco MD Orthopaedic Surgery, PGY-4 Plan of Care - Moshe De La Rosa RN - 07/07/2021 4:20 AM CDT Patient A/Ox4. VSS. Denies CP, SOB, dizziness/LH. LSCTA. +fl/BS. Voiding well, has duarte. CMS intact. Dressing to bottom, PICC, and ankle CDI. NPO. Activity level is resting overnight. IV PICC TKO between antibiotics. Pain rated comfortably managed throughout shift, has a variety of PRNs and scheduled medications. Ortho planning surgery today for a repeat I&D and wound vac xchg. Patient has demonstrated ability to call appropriately. Patient is resting with call light within reach. Will continueto monitor. [facility] 7:22 PM CDT Admission Medication History Completed by Pharmacy See Wise Data.Media Admission Navigator for allergy information, preferred outpatient pharmacy, prior to admission medications and immunization status. Medication History Sources: ??? Pharmacy fill history via [employer] ??? Current medication list from [facility] (pt admitted 06/28-07/06) ??? 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 Deleted: coenzyme-Q, ibuprofen, multivitamin, omeprazole, ondansetron, Miralax, thiamine, vitamin B complex (old Rx, no fill history) ??? 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 Last prescribed dose of buprenorphine was 8 mg SL tid, however per addiction medicine visit notes pt was taking medication differently to make prescription last and using family member's supply at times. At [facility] she was receiving 4 mg SL every 4 hours. 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 Auth Provider buprenorphine (SUBUTEX) 8 MG SUBL sublingual tablet Place 1 tablet (8 mg) under the tongue 3 times daily 07/06/2021 at Unknown time Yes Juanis Mckenzie cholecalciferol 50 MCG (1999 UT) tablet Take 1 tablet (50 mcg) by mouth daily 07/05/2021 at Unknown time Yes Reymundo Sifuentes MD famotidine (PEPCID) 20 MG tablet Take 20 mg by mouth 2 times daily 07/05/2021 at Unknown time Yes Unknown, Entered By History folic acid (FOLVITE) 1 MG tablet Take 1 tablet (1 mg) by mouth daily 07/05/2021 at Unknown time Yes Reymundo Sifuentes MD gabapentin (NEURONTIN) 100 MG capsule 1-2 po bid and 3 po qhs Patient taking differently: Take 300 mg by mouth At Bedtime 07/05/2021 at Unknown time Yes Juanis Mckenzie lactulose (CEPHULAC) 20 GM packet Take 20 g by mouth 2 times daily 07/05/2021 at Unknown time Yes Unknown, Entered By History levothyroxine (SYNTHROID/LEVOTHROID) 125 MCG tablet Take 1 tablet (125 mcg) by mouth every morning 07/06/2021 at Unknown time Yes Juanis Mckenzie magnesium oxide (MAG-OX) 400 MG tablet Take 400 mg by mouth 2 times daily 07/05/2021 at Unknown time Yes Unknown, Entered By History nicotine (NICODERM CQ) 14 MG/24HR [address] 1 patch onto the skin every 24 hours 07/05/2021 at Unknown time Yes Reymundo Sifuentes MD potassium chloride ER (KLOR-CON M) 10 MEQ CR tablet Take 10 mEq by mouth 2 times daily 07/05/2021 at Unknown time Yes Unknown, Entered By History senna (SENOKOT) 8.6 MG tablet Take 2 tablets by mouth 2 times daily 07/05/2021 at Unknown time Yes Unknown, Entered By History spironolactone (ALDACTONE) 25 MG tablet Take 25 mg by mouth daily 07/05/2021 at Unknown time Yes Unknown, Entered By History venlafaxine (EFFEXOR-XR) 150 MG 24 hr capsule Take 1 capsule (150 mg) by mouth daily Patient taking differently: Take 300 mg by mouth daily 07/05/2021 at Unknown time Yes Juanis Mckenzie naloxone (NARCAN) 4 MG/0.1ML nasal spray [place] 1 spray (4 mg) into one nostril alternating nostrils once as needed for opioid reversal every 2-3 minutes until assistance arrives Juanis Mckenzie nicotine polacrilex (NICORETTE) [address] 1 each (4 mg) inside cheek every hour as needed for smoking cessation Patient not taking: Reported on 02/28/2021 Reymundo Sifuentes MD Date completed: 07/06/21 Medication history completed by: Suze Morales RP Plan of Care - Leydi Ward RN - 07/06/2021 5:32 PM CDT VS: BP 124/76 (BP Location: Right arm) Pulse 80 Temp 99.8 ??F (37.7 ??C) (Oral) Resp 18 LMP 05/24/2016 (Approximate) SpO2 100% O2: 100% RA Output: Voiding without difficulty Last BM: 07/06 Activity: Limited. Pt up with PT today. Skin: Pale and dry. Some bruising on R forearm and R calf, assuming from surgery. Surgical site UTV Pain: Pt reports /10 and received 10mg Oxycodone CMS: A/O x4 Dressing: CDI Diet: NPO at midnight, pending surgery in the morning. Regular thin liquid. LDA: L side chest PICC. Placed at [facility]. Plan: Continue with care Additional Info: Plan of Care - Jarvis Frank RN - 07/06/2021 2:39 PM CDT VS: BP 131/78 (BP Location: Right arm, Patient Position: Semi-Hammer's, Cuff Size: Adult Regular) Pulse 79 Temp 98.3 ??F (36.8 ??C) (Axillary) Resp 18 LMP 05/24/2016 (Approximate) O2: Stable in RA. Denies SOB. Lung sounds clear Output: Duarte in place. Adequate urine output Last BM: 07/06/21. Bowel sounds active Activity: Up with assist x 1. With gait belt and walker Up for meals? Yes Skin: Scattered bruising all over BLE and BUE. Scabs on bilateral knee. Three dime size open wounds to right lower buttock Pain: Ene right foot pain. Scheduled Tylenol and Robaxin given. CMS /Neuro: AO x4. Denies numbness or tingling. Dressing: None. Wound vac to right foot by lateral ankle. Diet: Regular diet LDA: PICC Right upper arm saline locked . Wound vac Equipment: IV Pole/pump, call light, wound vac and personal belongings Plan: Orthopedic surgery consult, infectious disease consult, PT, OT Consult. Additional Info: documented in this encounter Plan of Treatment Upcoming Encounters Date Type Specialty Care Team Description 11/15/2021 Office Visit Wound Care Luis Camara DPM [address] [place] [address] (Wo rk) documented as of this encounter Procedures Procedure Name Priority Date/Time Associated Comments Diagnosis CRP INFLAMMATION Routine 07/23/2021 7:42 AM Resul ts for this CDT procedure are i n the results section. CBC WITH PLATELETS AND Timed 07/21/2021 3:12 PM Results for this DIFFERENTIAL CDT procedure are i n the results section. CBC WITH PLATELETS & Timed 07/21/2021 3:12 PM R esults for this DIFFERENTIAL CDT procedure are i n the results section. COVID-19 VIRUS STAT 07/21/2021 10:46 Results f or this (CORONAVIRUS) BY PCR AM CDT procedu re are in the results section. CRP INFLAMMATION Routine 07/19/2021 8:19 AM Resul ts for this CDT procedure are i n the results section. CBC WITH PLATELETS Routine 07/19/2021 8:19 AM Res ults for this CDT procedure are i n the results section. EXTRA TUBE Routine 07/18/2021 7:51 AM Results f or this CDT procedure are i n the results section. EXTRA PURPLE TOP TUBE Routine 07/18/2021 7:51 AM Results for this CDT procedure are i n the results section. CRP INFLAMMATION Routine 07/18/2021 7:37 AM Resul ts for this CDT procedure are i n the results section. XR CHEST 1 VIEW Routine 07/17/2021 3:47 PM Result s for this CDT procedure are i n the results section. COVID-19 VIRUS STAT 07/17/2021 11:14 Results f or this (CORONAVIRUS) BY PCR AM CDT procedu re are in the results section. CBC WITH PLATELETS AND Routine 07/17/2021 7:36 AM Results for this DIFFERENTIAL CDT procedure are i n the results section. CBC WITH PLATELETS & Routine 07/17/2021 7:36 AM R esults for this DIFFERENTIAL CDT procedure are i n the results section. COMPREHENSIVE METABOLIC Routine 07/17/2021 7:36 AM Results for this PANEL CDT procedure are i n the results section. CRP INFLAMMATION STAT 07/16/2021 9:08 AM Resul ts for this CDT procedure are i n the results section. CREATININE Routine 07/16/2021 8:23 AM Results f or this CDT procedure are i n the results section. EXTRA TUBE Routine 07/15/2021 6:09 AM Results f or this CDT procedure are i n the results section. EXTRA PURPLE TOP TUBE Routine 07/15/2021 6:09 AM Results for this CDT procedure are i n the results section. VANCOMYCIN LEVEL Routine 07/15/2021 6:09 AM Resul ts for this CDT procedure are i n the results section. CREATININE Routine 07/15/2021 6:09 AM Results f or this CDT procedure are i n the results section. CRP INFLAMMATION Routine 07/14/2021 5:30 AM Resul ts for this CDT procedure are i n the results section. CREATININE Routine 07/14/2021 5:30 AM Results f or this CDT procedure are i n the results section. CBC WITH PLATELETS Routine 07/14/2021 5:30 AM Res ults for this CDT procedure are i n the results section. XR CHEST 1 VIEW Routine 07/13/2021 6:18 PM Result s for this CDT procedure are i n the results section. CBC WITH PLATELETS AND Routine 07/13/2021 5:40 AM Results for this DIFFERENTIAL CDT procedure are i n the results section. CBC WITH PLATELETS & Routine 07/13/2021 5:40 AM R esults for this DIFFERENTIAL CDT procedure are i n the results section. VANCOMYCIN LEVEL Routine 07/13/2021 5:40 AM Resul ts for this CDT procedure are i n the results section. COMPREHENSIVE METABOLIC Routine 07/13/2021 5:40 AM Results for this PANEL CDT procedure are i n the results section. BLOOD CULTURE Routine 07/12/2021 9:04 AM Results for this CDT procedure are i n the results section. BLOOD CULTURE Routine 07/12/2021 8:57 AM Results for this CDT procedure are i n the results section. CRP INFLAMMATION Routine 07/12/2021 6:57 AM Resul ts for this CDT procedure are i n the results section. CREATININE Routine 07/12/2021 6:57 AM Results f or this CDT procedure are i n the results section. CBC WITH PLATELETS Routine 07/12/2021 6:57 AM Res ults for this CDT procedure are i n the results section. AEROBIC BACTERIAL Routine 07/11/2021 6:18 PM Resu lts for this CULTURE ROUTINE CDT procedure ar e in the results section. FUNGAL OR YEAST CULTURE Routine 07/11/2021 6:18 PM Results for this ROUTINE CDT procedure are i n the results section. ANAEROBIC BACTERIAL Routine 07/11/2021 6:18 PM Re sults for this CULTURE ROUTINE CDT procedure ar e in the results section. EXTRA TUBE Routine 07/11/2021 9:09 AM Results f or this CDT procedure are i n the results section. EXTRA PURPLE TOP TUBE Routine 07/11/2021 9:09 AM Results for this CDT procedure are i n the results section. CREATININE Timed 07/11/2021 9:09 AM Results f or this CDT procedure are i n the results section. CBC WITH PLATELETS AND Routine 07/10/2021 7:26 AM Results for this DIFFERENTIAL CDT procedure are i n the results section. CBC WITH PLATELETS & Routine 07/10/2021 7:26 AM R esults for this DIFFERENTIAL CDT procedure are i n the results section. CRP INFLAMMATION Routine 07/10/2021 7:26 AM Resul ts for this CDT procedure are i n the results section. CRP INFLAMMATION Routine 07/10/2021 5:25 AM Resul ts for this CDT procedure are i n the results section. CBC WITH PLATELETS Routine 07/10/2021 5:25 AM Res ults for this CDT procedure are i n the results section. ROUTINE UA WITH STAT 07/09/2021 5:33 PM Result s for this MICROSCOPIC REFLEX TO CDT proced ure are in CULTURE the results section. CRP INFLAMMATION Timed 07/09/2021 12:22 Results for this PM CDT procedure are i n the results section. BLOOD CULTURE Routine 07/09/2021 12:22 Results fo r this PM CDT procedure are i n the results section. BLOOD CULTURE Routine 07/09/2021 12:22 Results fo r this PM CDT procedure are i n the results section. ALT Timed 07/09/2021 12:22 Results for this PM CDT procedure are i n the results section. BASIC METABOLIC PANEL Timed 07/09/2021 12:22 Re sults for this PM CDT procedure are i n the results section. CBC WITH PLATELETS Timed 07/09/2021 12:22 Resul ts for this PM CDT procedure are i n the results section. ECHO COMPLETE Routine 07/08/2021 1:04 PM Results for this CDT procedure are i n the results section. ERYTHROCYTE Routine 07/08/2021 7:14 AM Results f or this SEDIMENTATION RATE AUTO CDT proc edure are in the results section. CRP INFLAMMATION Routine 07/08/2021 7:14 AM Resul ts for this CDT procedure are i n the results section. CBC WITH PLATELETS Routine 07/08/2021 7:14 AM Res ults for this CDT procedure are i n the results section. US ABDOMEN COMPLETE Routine 07/07/2021 3:33 PM Re sults for this CDT procedure are i n the results section. PHOSPHORUS Routine 07/07/2021 12:35 Results for this PM CDT procedure are i n the results section. MAGNESIUM Routine 07/07/2021 12:35 Results for this PM CDT procedure are i n the results section. COMPREHENSIVE METABOLIC Routine 07/07/2021 12:35 Results for this PANEL PM CDT procedure are i n the results section. BLOOD CULTURE Routine 07/07/2021 12:35 Results fo r this PM CDT procedure are i n the results section. BLOOD CULTURE Routine 07/07/2021 12:35 Results fo r this PM CDT procedure are i n the results section. CBC WITH PLATELETS Routine 07/07/2021 12:35 Resul ts for this PM CDT procedure are i n the results section. AEROBIC BACTERIAL Routine 07/07/2021 8:43 AM Resu lts for this CULTURE ROUTINE CDT procedure ar e in the results section. ANAEROBIC BACTERIAL Routine 07/07/2021 8:43 AM Re sults for this CULTURE ROUTINE CDT procedure ar e in the results section. AEROBIC BACTERIAL Routine 07/07/2021 8:42 AM Resu lts for this CULTURE ROUTINE CDT procedure ar e in the results section. ANAEROBIC BACTERIAL Routine 07/07/2021 8:42 AM Re sults for this CULTURE ROUTINE CDT procedure ar e in the results section. AEROBIC BACTERIAL Routine 07/07/2021 8:41 AM Resu lts for this CULTURE ROUTINE CDT procedure ar e in the results section. ANAEROBIC BACTERIAL Routine 07/07/2021 8:41 AM Re sults for this CULTURE ROUTINE CDT procedure ar e in the results section. IRRIGATION AND 07/07/2021 7:57 AM Ankle abscess DEBRIDEMENT, FOOT CDT COVID-19 VIRUS STAT 07/06/2021 6:11 PM Results for this (CORONAVIRUS) BY PCR CDT procedu re are in the results section. BLOOD CULTURE Routine 07/06/2021 3:56 PM Results for this CDT procedure are i n the results section. TYPE AND SCREEN, ADULT Routine 07/06/2021 3:34 PM Results for this CDT procedure are i n the results section. INR Routine 07/06/2021 3:34 PM Results f or this CDT procedure are i n the results section. PARTIAL THROMBOPLASTIN Routine 07/06/2021 3:34 PM Results for this TIME CDT procedure are i n the results section. IRON AND IRON BINDING Add-On 07/06/2021 3:34 PM Results for this CAPACITY CDT procedure are i n the results section. HEPATITIS C RNA, Add-On 07/06/2021 3:34 PM Resul ts for this QUANTITATIVE BY PCR CDT procedur e are in the results section. HEPATIC FUNCTION PANEL Routine 07/06/2021 3:34 PM Results for this CDT procedure are i n the results section. ERYTHROCYTE Routine 07/06/2021 3:34 PM Results f or this SEDIMENTATION RATE AUTO CDT proc edure are in the results section. CRP INFLAMMATION Routine 07/06/2021 3:34 PM Resul ts for this CDT procedure are i n the results section. BLOOD CULTURE Routine 07/06/2021 3:34 PM Results for this CDT procedure are i n the results section. ABO/RH TYPE AND SCREEN Routine 07/06/2021 3:34 PM Results for this CDT procedure are i n the results section. BASIC METABOLIC PANEL Routine 07/06/2021 3:34 PM Results for this CDT procedure are i n the results section. CBC WITH PLATELETS Routine 07/06/2021 3:34 PM Res ults for this CDT procedure are i n the results section. documented in this encounter Results (ABNORMAL) CRP inflammation (07/23/2021 7:42 AM CDT) [facility] [employer] Method Time Signature CRP Inflammation 8.2 (H) 0.0 - 8.0 07/23/2021 UR LABORATOR Y mg/L 8:28 AM CDT Specimen Anatomical Collection Method Collection Time Receive d Time (Source) Location / / Volume Laterality Blood STRUCTURE OF RIGHT VAD(CVC, PICC) / 07/23/2021 7:42 AM 07/23/2021 8:00 UPPER LIMB / Unknown CDT AM CDT Unknown Jaime Rae MD LAB - BLOOD ORDERABLES Performing Organization Address City/State/ZIP Code Phon e Number UR LABORATORY [facility] [place] [address] [facility], [address] (ABNORMAL) CBC with platelets and differential (07/21/2021 3:12 PM CDT) [facility] [employer] Method Time Signature WBC Count 4.4 4.0 - 07/21/2021 UR LABORATORY 11.0 4:10 PM CDT 10e3/uL RBC Count 3.21 (L) 3.80 - 07/21/2021 UR LABORATORY 5.20 4:10 PM CDT 10e6/uL Hemoglobin 9.8 (L) 11.7 - 07/21/2021 UR LABORATORY 15.7 g/dL 4:10 PM CDT Hematocrit 30.2 (L) 35.0 - 07/21/2021 UR LABORATORY 47.0 % 4:10 PM CDT MCV 94 78 - 100 07/21/2021 UR LABORATORY fL 4:10 PM CDT MCH 30.5 26.5 - 07/21/2021 UR LABORATORY 33.0 pg 4:10 PM CDT MCHC 32.5 31.5 - 07/21/2021 UR LABORATORY 36.5 g/dL 4:10 PM CDT RDW 13.1 10.0 - 07/21/2021 UR LABORATORY 15.0 % 4:10 PM CDT Platelet Count 166 150 - 450 07/21/2021 UR LABORATORY 10e3/uL 4:10 PM CDT % Neutrophils 38 % 07/21/2021 UR LABORATORY 4:10 PM CDT % Lymphocytes 48 % 07/21/2021 UR LABORATORY 4:10 PM CDT % Monocytes 10 % 07/21/2021 UR LABORATORY 4:10 PM CDT % Eosinophils 3 % 07/21/2021 UR LAB[facility]ATORY 4:10 PM CDT % Basophils 1 % 07/21/2021 UR LABORATORY 4:10 PM CDT % Immature 0 % 07/21/2021 UR LABORATORY Granulocytes 4:10 PM CDT NRBCs per 100 0 <1 /100 07/21/2021 UR LABORATORY WBC 4:10 PM CDT Absolute 1.7 1.6 - 8.3 07/21/2021 UR LABORATORY Neutrophils 10e3/uL 4:10 PM CDT Absolute 2.1 0.8 - 5.3 07/21/2021 UR LABORATORY Lymphocytes 10e3/uL 4:10 PM CDT Absolute 0.5 0.0 - 1.3 07/21/2021 UR LABORATORY Monocytes 10e3/uL 4:10 PM CDT Absolute 0.1 0.0 - 0.7 07/21/2021 UR LABORATORY Eosinophils 10e3/uL 4:10 PM CDT Absolute 0.0 0.0 - 0.2 07/21/2021 UR LABORATORY Basophils 10e3/uL 4:10 PM CDT Absolute 0.0 <=0.4 07/21/2021 UR LABORATORY Immature 10e3/uL 4:10 PM CDT Granulocytes Absolute NRBCs 0.0 10e3/uL 07/21/2021 UR LABORATORY 4:10 PM CDT Specimen Anatomical Collection Method Collection Time Receive d Time (Source) Location / / Volume Laterality Blood STRUCTURE OF RIGHT Client Draw / 07/21/2021 3:12 PM 4:09 UPPER LIMB / Unknown CDT PM CDT Unknown Jaime Rae MD LAB - BLOOD ORDERABLES Performing Organization Address City/State/ZIP Code Phon e Number UR [place]ATORY [place] [address] [facility], [address] Asymptomatic COVID-19 Virus (Coronavirus) by PCR Nose (07/21/2021 10:46 AM CDT) Analysis Performed At Patho logist Time Signature SARS CoV2 PCR Negative Negative 07/21/2021 UR LABORATORY 11:35 AM CDT Comment: NEGATIVE: SARS-CoV-2 (COVID-19) RNA not detected, presumed negative. Specimen Anatomical Collection Method Collection Time Receive d Time (Source) Location / / Volume Laterality Swab NASAL STRUCTURE / Non-blood 07/21/2021 10:46 2021 Unknown Collection / AM CDT 11:03 AM CDT Unknown Narrative UR LABORATORY - 07/21/2021 11:35 AM CDT Testing was performed using the leonardo?? SARS-CoV-2 & Influenza A/B Assay on the leonardo?? Mervat?? System. ??This test shoul d be [...] exposure or clinical presentation sugges ts COVID-19. ??[facility] are certified under the Clinical Laborat ory Improvement Amendments of 1988 (CLIA-88) as qualified to perform moderate and/or high complexity laboratory testing. Jaime Rae MD LAB - MICRO GENERAL ORDERABL ES Performing Organization Address City/State/ZIP Code [place] [address] [facility], [address] (ABNORMAL) CRP inflammation (07/19/2021 8:19 AM CDT) Patholo gist Method Time Signature CRP Inflammation 15.0 (H) 0.0 - 8.0 07/19/2021 UR LABORATOR Y mg/L 9:11 AM CDT Specimen Anatomical Collection Method / Collection Time Recei isak Time (Source) Location / Volume Laterality Blood STRUCTURE OF RIGHT Venipuncture / 07/19/2021 8:19 06/0 03/2021 8:28 HAND / Unknown Unknown AM CDT AM CDT Jaime Rae MD LAB - BLOOD ORDERABLES Performing Organization Address City/State/ZIP Code Phon e Number UR LABORATORY [facility] [place] [address] [facility], Room M309 (ABNORMAL) CBC with platelets (07/19/2021 8:19 AM CDT) [facility] [employer] Method Time Signature WBC Count 4.9 4.0 - 11.0 07/19/2021 [facility] 10e3/uL 8:31 AM CDT RBC Count 3.21 (L) 3.80 - 07/19/2021 [facility] 5.20 8:31 AM CDT 10e6/uL Hemoglobin 9.9 (L) 11.7 - 07/19/2021 [facility] 15.7 g/dL 8:31 AM CDT Hematocrit 30.0 (L) 35.0 - 07/19/2021 [facility] 47.0 % 8:31 AM CDT MCV 94 78 - 100 07/19/2021 [facility] fL 8:31 AM CDT MCH 30.8 26.5 - 07/19/2021 [facility] 33.0 pg 8:31 AM CDT MCHC 33.0 31.5 - 07/19/2021 [facility] 36.5 g/dL 8:31 AM CDT RDW 13.2 10.0 - 07/19/2021 [facility] 15.0 % 8:31 AM CDT Platelet Count 152 150 - 450 07/19/2021 [facility] 10e3/uL 8:31 AM CDT Specimen Anatomical Collection Method / Collection Time Recei isak Time (Source) Location / Volume Laterality Blood STRUCTURE OF RIGHT Venipuncture / 07/19/2021 8:19 06/0 03/2021 8:28 HAND / Unknown Unknown AM CDT AM CDT Jaime Rae MD LAB - BLOOD ORDERABLES Performing Organization Address City/State/ZIP Code [place] [address] Care Lab [address] [place] [address], Room M309 Extra Purple Top Tube (07/18/2021 7:51 AM CDT) P athologist Signature Hold Specimen JIC 07/18/2021 [facility] 9:04 AM CDT Specimen Anatomical Collection Method / Collection Time Recei isak Time (Source) Location / Volume Laterality Blood BLOOD SPECIMEN / Venipuncture / 07/18/2021 7:51 2021 7:51 Unknown Unknown AM CDT AM CDT Jaime Rae MD LAB - BLOOD ORDERABLES Performing Organization Address City/State/ZIP Code [place] [address] Care Lab [address] [place] [address], Room M309 (ABNORMAL) CRP inflammation (07/18/2021 7:37 AM CDT) Patholo gist Method Time Signature CRP Inflammation 23.0 (H) 0.0 - 8.0 07/18/2021 UR LABORATOR Y mg/L 8:32 AM CDT Specimen Anatomical Collection Method / Collection Time Recei isak Time (Source) Location / Volume Laterality Blood STRUCTURE OF RIGHT Venipuncture / 07/18/2021 7:37 06/0 02/2021 7:49 UPPER LIMB / Unknown AM CDT AM CDT Unknown Jah Thompson MD LAB - BLOOD ORDERABLES Performing Organization Address City/State/ZIP Code [place] [address] Care [address] [place] [address], Room M309 XR Chest 1 View (07/17/2021 3:47 PM CDT) Anatomical Region Laterality Modality Chest Computed Radiography Specimen (Source) Anatomical Location Collection Method / Collectio n Time Received Time / Laterality Volume Impressions 07/17/2021 4:54 PM CDT Impression: Stable positioning of left upper extremity PICC line with tip projecting over the high SVC. No acu te airspace opacities. I have personally reviewed the examinati on and initial interpretation and I agree with the findings. TK THOMAS MD Narrative 07/17/2021 4:54 PM CDT Exam: XR CHEST 1 VIEW, 07/17/2021 3:47 PM Indication: picc line placement. Comparison: 07/13/2021 Findings: Semiupright view of the chest demonstrat es stable position of the left arm PICC line tip, projecting over highe r cc. Stable cardiac silhouette. No acute pulmonary opacities , pneumothorax or pleural effusion. Procedure Note Tk Thomas MD - 07/17/2021Fo rmatting of this note might be different from the original. Exam: XR CHEST 1 VIEW, 07/17/2021 3:47 PM Indication: picc line placement. Comparison: 07/13/2021 Findings: Semiupright view of the chest demonstrat es stable position of the left arm PICC line tip, projecting over highe r cc. Stable cardiac silhouette. No acute pulmonary opacities , pneumothorax or pleural effusion. Impression: Stable positioning of left u pper extremity PICC line with tip projecting over the high SVC. No acu te airspace opacities. I have personally reviewed the examinati on and initial interpretation and I agree with the findings. TK THOMAS MD Jaime Rae MD IMG DIAGNOSTIC IMAGING ORDER JEFFERY Asymptomatic COVID-19 Virus (Coronavirus) by PCR Nasopharyngeal (07/17/2021 11:14 AM CDT) Analysis Performed At Patho logist Time Signature SARS CoV2 PCR Negative Negative 07/17/2021 [facility] 12:12 PM CDT Comment: NEGATIVE: SARS-CoV-2 (COVID-19) RNA not detected, presumed negative. Specimen Anatomical Location / Collection Method Collection Jeff e Received Time (Source) Laterality / Volume Swab NASOPHARYNGEAL Non-blood 07/17/2021 11:14 STRUCTURE / Unknown Collection / AM CDT 11:26 AM CDT Unknown Narrative [facility] - 07/17/2021 12:12 PM CDT Testing was performed using the leonardo?? SARS-CoV-2 & Influenza A/B Assay on the leonardo?? Mervat?? System. ??This test shoul d be [...] exposure or clinical presentation sugges ts COVID-19. ??[facility] are certified under the Clinical Laborat ory Improvement Amendments of 1988 (CLIA-88) as qualified to perform moderate and/or high complexity laboratory testing. Jaime Rae MD LAB - MICRO GENERAL ORDERABL ES Performing Organization Address City/State/ZIP Code [place] [address] [facility], Room M309 (ABNORMAL) CBC with platelets and differential (07/17/2021 7:36 AM CDT) [facility] gist Method Time Signature WBC Count 5.8 4.0 - 07/17/2021 [facility] 11.0 8:13 AM CDT 10e3/uL RBC Count 3.17 (L) 3.80 - 07/17/2021 [facility] 5.20 8:13 AM CDT 10e6/uL Hemoglobin 9.8 (L) 11.7 - 07/17/2021 [facility] 15.7 g/dL 8:13 AM CDT Hematocrit 29.6 (L) 35.0 - 07/17/2021 [facility] 47.0 % 8:13 AM CDT MCV 93 78 - 100 07/17/2021 [facility] fL 8:13 AM CDT MCH 30.9 26.5 - 07/17/2021 [facility] 33.0 pg 8:13 AM CDT MCHC 33.1 31.5 - 07/17/2021 [facility] 36.5 g/dL 8:13 AM CDT RDW 13.0 10.0 - 07/17/2021 [facility] 15.0 % 8:13 AM CDT Platelet Count 157 150 - 450 07/17/2021 [facility] 10e3/uL 8:13 AM CDT % Neutrophils 51 % 07/17/2021 [facility] 8:13 AM CDT % Lymphocytes 38 % 07/17/2021 [facility] 8:13 AM CDT % Monocytes 9 % 07/17/2021 [facility] 8:13 AM CDT % Eosinophils 1 % 07/17/2021 [facility] 8:13 AM CDT % Basophils 1 % 07/17/2021 [facility] 8:13 AM CDT % Immature 0 % 07/17/2021 [facility] Granulocytes 8:13 AM CDT NRBCs per 100 0 <1 /100 07/17/2021 [facility] WBC 8:13 AM CDT Absolute 3.0 1.6 - 8.3 07/17/2021 [facility] Neutrophils 10e3/uL 8:13 AM CDT Absolute 2.2 0.8 - 5.3 07/17/2021 [facility] Lymphocytes 10e3/uL 8:13 AM CDT Absolute 0.5 0.0 - 1.3 07/17/2021 [facility] Monocytes 10e3/uL 8:13 AM CDT Absolute 0.0 0.0 - 0.7 07/17/2021 [facility] Eosinophils 10e3/uL 8:13 AM CDT Absolute 0.0 0.0 - 0.2 07/17/2021 [facility] Basophils 10e3/uL 8:13 AM CDT Absolute 0.0 <=0.4 07/17/2021 [facility] Immature 10e3/uL 8:13 AM CDT Granulocytes Absolute NRBCs 0.0 10e3/uL 07/17/2021 [facility] 8:13 AM CDT Specimen Anatomical Collection Method / Collection Time Recei isak Time (Source) Location / Volume Laterality Blood STRUCTURE OF RIGHT Venipuncture / 07/17/2021 7:36 05/3 02/2021 8:08 HAND / Unknown Unknown AM CDT AM CDT Jensen Ulloa MD LAB - BLOOD ORDERABLES Performing Organization Address City/State/ZIP Code Phon e Number UR LABORATORY [facility] [place] [address] [facility] Lab [address] [place] [address], Room M309 (ABNORMAL) Comprehensive metabolic panel (07/17/2021 7:36 AM CDT) [facility] Method Time Signature Sodium 139 133 - 144 07/17/2021 [facility] mmol/L 8:33 AM CDT Potassium 3.6 3.4 - 5.3 07/17/2021 [facility] mmol/L 8:33 AM CDT Chloride 108 94 - 109 07/17/2021 [facility] mmol/L 8:33 AM CDT Carbon Dioxide 24 20 - 32 07/17/2021 [facility] (CO2) mmol/L 8:33 AM CDT Anion Gap 7 3 - 14 07/17/2021 [facility] mmol/L 8:33 AM CDT Urea Nitrogen 7 7 - 30 07/17/2021 [facility] mg/dL 8:33 AM CDT Creatinine 0.60 0.52 - 07/17/2021 [facility] 1.04 mg/dL 8:33 AM CDT Calcium 9.1 8.5 - 10.1 07/17/2021 [facility] mg/dL 8:33 AM CDT Glucose 102 (H) 70 - 99 07/17/2021 [facility] mg/dL 8:33 AM CDT Alkaline 157 (H) 40 - 150 07/17/2021 [facility] Phosphatase U/L 8:33 AM CDT AST 56 (H) 0 - 45 U/L 07/17/2021 [facility] 8:33 AM CDT ALT 42 0 - 50 U/L 07/17/2021 [facility] 8:33 AM CDT Protein Total 8.1 6.8 - 8.8 07/17/2021 [facility] g/dL 8:33 AM CDT Albumin 2.5 (L) 3.4 - 5.0 07/17/2021 [facility] g/dL 8:33 AM CDT Bilirubin Total 0.7 0.2 - 1.3 07/17/2021 [facility] mg/dL 8:33 AM CDT GFR Estimate >90 >60 07/17/2021 [facility] mL/min/1.7 8:33 AM CDT 3m2 Comment: Effective February 06, 2021 eGF Rcr in adults is calculated using the 2020 CKD-EPI creatinine equation which includ es age and gender (Paul et al., NEJM, DOI: 10.1056/HEXKfk8128683) Specimen Anatomical Collection Method / Collection Time Recei isak Time (Source) Location / Volume Laterality Blood STRUCTURE OF RIGHT Venipuncture / 07/17/2021 7:36 /02/2021 8:08 HAND / Unknown Unknown AM CDT AM CDT Jensen Ulloa MD LAB - BLOOD ORDERABLES Performing Organization Address City/[facility]/ZIP [facility] [place] [phone] Care Lab [address] [place] [address], Room M309 (ABNORMAL) CRP inflammation (07/16/2021 9:08 AM CDT) Patholo gist Method Time Signature CRP Inflammation 33.0 (H) 0.0 - 8.0 07/16/2021 UR LABORATOR Y mg/L 9:30 AM CDT Specimen Anatomical Collection Method / Collection Time Recei isak Time (Source) Location / Volume Laterality Blood ARTERIAL LINE / Venipuncture / 07/16/2021 9:08 022 9:13 Unknown Unknown AM CDT AM CDT Eliud Olivera MD LAB - BLOOD ORDERABLES Performing Organization Address City/[facility] [place] [phone] Care [address] [place] [address], Room M309 Creatinine (07/16/2021 8:23 AM CDT) P athologist Signature Creatinine 0.66 0.52 - 1.04 07/16/2021 [facility] mg/dL 9:01 AM CDT GFR Estimate >90 >60 07/16/2021 [facility] mL/min/1.73 9:01 AM CDT m2 Comment: Effective February 06, 2021 eGF Rcr in adults is calculated using the 2020 CKD-EPI creatinine equation which includ es age and gender (Paul et al., NEJ, DOI: 10.1056/IXCNfn5581346) Specimen Anatomical Collection Method / Collection Time Recei isak Time (Source) Location / Volume Laterality Blood STRUCTURE OF RIGHT Venipuncture / 07/16/2021 8:23 06/19 8:31 HAND / Unknown Unknown AM CDT AM CDT Jaime Rae MD LAB - BLOOD ORDERABLES Performing Organization Address City/State/ZIP Code [place] [address] Care [address] [place] [address], Room M309 Extra Purple Top Tube (07/15/2021 6:09 AM CDT) P athologist Signature Hold Specimen JIC 07/15/2021 [facility] 7:48 AM CDT Specimen Anatomical Collection Method / Collection Time Recei isak Time (Source) Location / Volume Laterality Blood STRUCTURE OF LEFT Venipuncture / 07/15/2021 6:09 07/15 6:44 HAND / Unknown Unknown AM CDT AM CDT Jaime Rae MD LAB - BLOOD ORDERABLES Performing Organization Address City/[facility]/ZIP [facility] [place] [address] Care Lab [address] [place] [address], Room M309 Creatinine (07/15/2021 6:09 AM CDT) P athologist Signature Creatinine 0.64 0.52 - 1.04 07/15/2021 [facility] mg/dL 7:06 AM CDT GFR Estimate >90 >60 07/15/2021 [facility] mL/min/1.73 7:06 AM CDT m2 Comment: Effective February 06, 2021 eGF Rcr in adults is calculated using the 2020 CKD-EPI creatinine equation which includ es age and gender (Paul et al., NEJ, DOI: 10.1056/HPAHvk6475458) Specimen Anatomical Collection Method / Collection Time Recei isak Time (Source) Location / Volume Laterality Blood STRUCTURE OF LEFT Venipuncture / 07/15/2021 6:09 07/15 6:14 HAND / Unknown Unknown AM CDT AM CDT Jaime Rae MD LAB - BLOOD ORDERABLES Performing Organization Address City/[facility]/ZIP [facility] [place] [address] Care [address] [place] [address], Room M309 Vancomycin level (07/15/2021 6:09 AM CDT) athologist Signature Vancomycin 20.6 mg/L 07/15/2021 7:07 [facility] AM CDT Specimen Anatomical Collection Method / Collection Time Recei isak Time (Source) Location / Volume Laterality Blood STRUCTURE OF LEFT Venipuncture / 07/15/2021 6:09 07/15 6:14 HAND / Unknown Unknown AM CDT AM CDT Jaime Rae MD LAB - BLOOD ORDERABLES Performing Organization Address City/[facility] [place] [phone] Care [address] [place] [address], Room M309 Creatinine (07/14/2021 5:30 AM CDT) athologist Signature Creatinine 0.62 0.52 - 1.04 07/14/2021 [facility] mg/dL 6:20 AM CDT GFR Estimate >90 >60 07/14/2021 [facility] mL/min/1.73 6:20 AM CDT m2 Comment: Effective February 06, 2021 eGF Rcr in adults is calculated using the 2020 CKD-EPI creatinine equation which includ es age and gender (Paul et al., NEJM, DOI: 10.1056/PTNHwv1409463) Specimen Anatomical Collection Method / Collection Time Recei isak Time (Source) Location / Volume Laterality Blood STRUCTURE OF RIGHT Venipuncture / 07/14/2021 5:30 05/2 09/2021 5:52 UPPER LIMB / Unknown AM CDT AM CDT Unknown Jaime Rae MD LAB - BLOOD ORDERABLES Performing Organization Address City/State/ZIP Code [place] [phone] [address] [place] [address], Room M309 (ABNORMAL) CBC with platelets (07/14/2021 5:30 AM CDT) [facility] gist Method Time Signature WBC Count 4.9 4.0 - 11.0 07/14/2021 [facility] 10e3/uL 6:04 AM CDT RBC Count 3.09 (L) 3.80 - 07/14/2021 [facility] 5.20 6:04 AM CDT 10e6/uL Hemoglobin 9.6 (L) 11.7 - 07/14/2021 [facility] 15.7 g/dL 6:04 AM CDT Hematocrit 29.2 (L) 35.0 - 07/14/2021 UR [facility] 47.0 % 6:04 AM CDT MCV 95 78 - 100 07/14/2021 [facility] fL 6:04 AM CDT MCH 31.1 26.5 - 07/14/2021 [facility] 33.0 pg 6:04 AM CDT MCHC 32.9 31.5 - 07/14/2021 [facility] 36.5 g/dL 6:04 AM CDT RDW 13.3 10.0 - 07/14/2021 [facility] 15.0 % 6:04 AM CDT Platelet Count 167 150 - 450 07/14/2021 [facility] 10e3/uL 6:04 AM CDT Specimen Anatomical Collection Method / Collection Time Recei isak Time (Source) Location / Volume Laterality Blood STRUCTURE OF RIGHT Venipuncture / 07/14/2021 5:30 05/2 09/2021 5:52 UPPER LIMB / Unknown AM CDT AM CDT Unknown Jah Thompson MD LAB - BLOOD ORDERABLES Performing Organization Address City/State/ZIP Code [place] [address] [facility], Room M309 (ABNORMAL) CRP inflammation (07/14/2021 5:30 AM CDT) [facility] gist Method Time Signature CRP Inflammation 40.0 (H) 0.0 - 8.0 07/14/2021 UR LABORATOR Y mg/L 6:22 AM CDT Specimen Anatomical Collection Method / Collection Time Recei isak Time (Source) Location / Volume Laterality Blood STRUCTURE OF RIGHT Venipuncture / 07/14/2021 5:30 05/2 09/2021 5:52 UPPER LIMB / Unknown AM CDT AM CDT Unknown Jah Thompson MD LAB - BLOOD ORDERABLES Performing Organization Address City/State/ZIP Code Phon e Number UR [place] [address] [facility], Room M309 XR Chest 1 View (07/13/2021 6:18 PM CDT) Anatomical Region Laterality Modality Chest Computed Radiography Specimen (Source) Anatomical Location Collection Method / Collectio n Time Received Time / Laterality Volume Impressions 07/13/2021 11:17 PM CDT IMPRESSION: Left arm PICC tip projects over the SVC. I have personally reviewed the examinati on and initial interpretation and I agree with the findings. KIMBERLY JACOBSON MD Narrative 07/13/2021 11:17 PM CDT EXAMINATION: ??XR CHEST 1 VIEW 07/13/2021 6:18 PM. COMPARISON: 02/28/2019 HISTORY: ??PICC line placement FINDINGS: Frontal view. Left arm PICC ti p projects over the SVC. Stable cardiac silhouette. No pleural ef fusion or pneumothorax. No focal pulmonary opacity. Procedure Note Kimberly Jacobson MD - 07/13/2021 EXAMINATION: XR CHEST 1 VIEW 07/13/2021 6 :18 PM. COMPARISON: 02/28/2019 HISTORY: PICC line placement FINDINGS: Frontal view. Left arm PICC ti p projects over the SVC. Stable cardiac silhouette. No pleural ef fusion or pneumothorax. No focal pulmonary opacity. IMPRESSION: Left arm PICC tip projects o elizabeth the SVC. I have personally reviewed the examinati on and initial interpretation and I agree with the findings. KIMBERLY JACOBSON MD Hussain Fraga MD IMG DIAGNOSTIC IMAGING ORDER JEFFERY (ABNORMAL) CBC with platelets and differential (07/13/2021 5:40 AM CDT) [facility] Method Time Signature WBC Count 4.9 4.0 - 07/13/2021 UR [facility] 11.0 6:02 AM CDT 10e3/uL RBC Count 3.19 (L) 3.80 - 07/13/2021 [facility] 5.20 6:02 AM CDT 10e6/uL Hemoglobin 10.1 (L) 11.7 - 07/13/2021 [facility] 15.7 g/dL 6:02 AM CDT Hematocrit 30.5 (L) 35.0 - 07/13/2021 UR [facility] 47.0 % 6:02 AM CDT MCV 96 78 - 100 07/13/2021 UR [facility] fL 6:02 AM CDT MCH 31.7 26.5 - 07/13/2021 UR [facility] 33.0 pg 6:02 AM CDT MCHC 33.1 31.5 - 07/13/2021 [facility] 36.5 g/dL 6:02 AM CDT RDW 13.2 10.0 - 07/13/2021 UR [facility] 15.0 % 6:02 AM CDT Platelet Count 175 150 - 450 07/13/2021 [facility] 10e3/uL 6:02 AM CDT % Neutrophils 53 % 07/13/2021 [facility] 6:02 AM CDT % Lymphocytes 36 % 07/13/2021 [facility] 6:02 AM CDT % Monocytes 10 % 07/13/2021 [facility] 6:02 AM CDT % Eosinophils 0 % 07/13/2021 UR [facility] 6:02 AM CDT % Basophils 1 % 07/13/2021 UR [facility] 6:02 AM CDT % Immature 0 % 07/13/2021 UR [facility] Granulocytes 6:02 AM CDT NRBCs per 100 0 <1 /100 07/13/2021 UR [facility] WBC 6:02 AM CDT Absolute 2.6 1.6 - 8.3 07/13/2021 UR [facility] Neutrophils 10e3/uL 6:02 AM CDT Absolute 1.7 0.8 - 5.3 07/13/2021 UR [facility] Lymphocytes 10e3/uL 6:02 AM CDT Absolute 0.5 0.0 - 1.3 07/13/2021 UR [facility] Monocytes 10e3/uL 6:02 AM CDT Absolute 0.0 0.0 - 0.7 07/13/2021 UR [facility] Eosinophils 10e3/uL 6:02 AM CDT Absolute 0.0 0.0 - 0.2 07/13/2021 UR [facility] Basophils 10e3/uL 6:02 AM CDT Absolute 0.0 <=0.4 07/13/2021 UR [facility] Immature 10e3/uL 6:02 AM CDT Granulocytes Absolute NRBCs 0.0 10e3/uL 07/13/2021 [facility] 6:02 AM CDT Specimen Anatomical Collection Method / Collection Time Recei isak Time (Source) Location / Volume Laterality Blood STRUCTURE OF RIGHT Venipuncture / 07/13/2021 5:40 05/2 08/2021 5:55 HAND / Unknown Unknown AM CDT AM CDT Jensen Ulloa MD LAB - BLOOD ORDERABLES Performing Organization Address City/State/ZIP Code Phon e Number UR LABORATORY [facility] [place] [address] [facility], Room M309 (ABNORMAL) Comprehensive metabolic panel (07/13/2021 5:40 AM CDT) [facility] Method Time Signature Sodium 139 133 - 144 07/13/2021 UR [facility] mmol/L 6:44 AM CDT Potassium 3.9 3.4 - 5.3 07/13/2021 [facility] mmol/L 6:44 AM CDT Chloride 106 94 - 109 07/13/2021 [facility] mmol/L 6:44 AM CDT Carbon Dioxide 26 20 - 32 07/13/2021 UR [facility] (CO2) mmol/L 6:44 AM CDT Anion Gap 7 3 - 14 07/13/2021 UR [facility] mmol/L 6:44 AM CDT Urea Nitrogen 11 7 - 30 07/13/2021 UR [facility] mg/dL 6:44 AM CDT Creatinine 0.63 0.52 - 07/13/2021 UR [facility] 1.04 mg/dL 6:44 AM CDT Calcium 9.0 8.5 - 10.1 07/13/2021 UR [facility] mg/dL 6:44 AM CDT Glucose 102 (H) 70 - 99 07/13/2021 UR [facility] mg/dL 6:44 AM CDT Alkaline 167 (H) 40 - 150 07/13/2021 UR [facility] Phosphatase U/L 6:44 AM CDT AST 50 (H) 0 - 45 U/L 07/13/2021 UR [facility] 6:44 AM CDT ALT 31 0 - 50 U/L 07/13/2021 UR [facility] 6:44 AM CDT Protein Total 6.9 6.8 - 8.8 07/13/2021 UR [facility] g/dL 6:44 AM CDT Albumin 2.3 (L) 3.4 - 5.0 07/13/2021 UR [facility] g/dL 6:44 AM CDT Bilirubin Total 1.1 0.2 - 1.3 07/13/2021 [facility] mg/dL 6:44 AM CDT GFR Estimate >90 >60 07/13/2021 UR [facility] mL/min/1.7 6:44 AM CDT 3m2 Comment: Effective February 06, 2021 eGF Rcr in adults is calculated using the 2020 CKD-EPI creatinine equation which includ es age and gender (Paul et al., NEJ, DOI: 10.[facility]6/[id number]) Specimen Anatomical Collection Method / Collection Time Recei isak Time (Source) Location / Volume Laterality Blood STRUCTURE OF RIGHT Venipuncture / 07/13/2021 5:40 05/08/2021 5:55 HAND / Unknown Unknown AM CDT AM CDT Jensen Ulloa MD LAB - BLOOD ORDERABLES Performing Organization Address City/[facility]/ZIP Code [place] [address] Care [address] [place] [address], Room M309 Vancomycin level (07/13/2021 5:40 AM CDT) P athologist Signature Vancomycin 18.8 mg/L 07/13/2021 6:44 UR [facility] AM CDT Specimen Anatomical Collection Method / Collection Time Recei isak Time (Source) Location / Volume Laterality Blood STRUCTURE OF RIGHT Venipuncture / 07/13/2021 5:40 06/18 5:55 HAND / Unknown Unknown AM CDT AM CDT Jaime Rae MD LAB - BLOOD ORDERABLES Performing Organization Address City/State/ZIP [facility] [place] [address] Care [address] [place] [address], Room M309 Blood Culture Line, venous (07/12/2021 9:04 AM CDT) P athologist Signature Culture No Growth 07/17/2021 [facility] IDD 11:03 AM CDT LABORATORY Specimen Anatomical Collection Method / Collection Time Recei isak Time (Source) Location / Volume Laterality Blood VENOUS LINE / Venipuncture / 07/12/2021 9:04 9:13 Unknown Unknown AM CDT AM CDT Jensen Ulloa MD LAB - MICRO GENERAL ORDERABL ES Performing Organization Address City/State/ZIP Code Phon e Number [facility] LABORATORY [facility] [place] [address] Diag. Lab [address] [facility], Room D297 Blood Culture Arm, Right (07/12/2021 8:57 AM CDT) P athologist Signature Culture No Growth 07/17/2021 [facility] IDD 11:03 AM CDT LABORATORY Specimen Anatomical Collection Method / Collection Time Recei isak Time (Source) Location / Volume Laterality Blood STRUCTURE OF RIGHT Venipuncture / 07/12/2021 8:57 05/2 07/2021 9:13 UPPER LIMB / Unknown AM CDT AM CDT Unknown Jensen Ulloa MD LAB - MICRO GENERAL ORDERABL ES Performing Organization Address City/State/ZIP Code Phon e Number [facility] LABORATORY [facility] [place] [address] Diag. Lab [address] [facility], Room D297 (ABNORMAL) CRP inflammation (07/12/2021 6:57 AM CDT) Patholo gist Method Time Signature CRP Inflammation 57.0 (H) 0.0 - 8.0 07/12/2021 UR LABORATOR Y mg/L 7:35 AM CDT Specimen Anatomical Collection Method / Collection Time Recei isak Time (Source) Location / Volume Laterality Blood STRUCTURE OF RIGHT Venipuncture / 07/12/2021 6:57 05/2 07/2021 7:04 UPPER LIMB / Unknown AM CDT AM CDT Unknown Jah Thompson MD LAB - BLOOD ORDERABLES Performing Organization Address City/State/ZIP Code Phon e Number UR LABORATORY [facility] [place] [phone] Care Lab [address] [facility], Room M309 (ABNORMAL) CBC with platelets (07/12/2021 6:57 AM CDT) Patholo gist Method Time Signature WBC Count 6.6 4.0 - 11.0 07/12/2021 UR [facility]ORY 10e3/uL 7:09 AM CDT RBC Count 3.19 (L) 3.80 - 07/12/2021 UR [facility]ORY 5.20 7:09 AM CDT 10e6/uL Hemoglobin 9.9 (L) 11.7 - 07/12/2021 UR [facility] 15.7 g/dL 7:09 AM CDT Hematocrit 30.5 (L) 35.0 - 07/12/2021 UR LAB[facility] 47.0 % 7:09 AM CDT MCV 96 78 - 100 07/12/2021 UR [facility] fL 7:09 AM CDT MCH 31.0 26.5 - 07/12/2021 UR [facility] 33.0 pg 7:09 AM CDT MCHC 32.5 31.5 - 07/12/2021 UR [facility] 36.5 g/dL 7:09 AM CDT RDW 13.6 10.0 - 07/12/2021 UR [facility] 15.0 % 7:09 AM CDT Platelet Count 216 150 - 450 07/12/2021 [facility] 10e3/uL 7:09 AM CDT Specimen Anatomical Collection Method / Collection Time Recei isak Time (Source) Location / Volume Laterality Blood BLOOD SPECIMEN / Venipuncture / 07/12/2021 6:57 2021 7:04 Unknown Unknown AM CDT AM CDT Jah Thompson MD LAB - BLOOD ORDERABLES Performing Organization Address City/State/ZIP Code Phon [place] [address] [facility], Room [address]309 Creatinine (07/12/2021 6:57 AM CDT) P athologist Signature Creatinine 0.57 0.52 - 1.04 07/12/2021 [facility] mg/dL 7:35 AM CDT GFR Estimate >90 >60 07/12/2021 [facility] mL/min/1.73 7:35 AM CDT m2 Comment: Effective February 06, 2021 eGF Rcr in adults is calculated using the 2020 CKD-EPI creatinine equation which includ es age and gender (Paul et al., NEJM, DOI: 10.1056/QUBYbn6550788) Specimen Anatomical Collection Method / Collection Time Recei isak Time (Source) Location / Volume Laterality Blood STRUCTURE OF RIGHT Venipuncture / 07/12/2021 6:57 05/2 07/2021 7:04 UPPER LIMB / Unknown AM CDT AM CDT Unknown Jaime Rae MD LAB - BLOOD ORDERABLES Performing Organization Address City/State/ZIP Code Phon e Number UR LABORATORY [facility] [place] [address] [facility], Room [address]309 Fungal or Yeast Culture Routine (07/11/2021 6:18 PM CDT) athologist Signature Culture No Growth GINETTE 08/08/2021 UU IDD 9:20 AM CDT LABORATORY Specimen Anatomical Collection Method Collection Time Receive d Time (Source) Location / / Volume Laterality Wound STRUCTURE OF RIGHT Non-blood 07/11/2021 6:18 PM 6:18 ANKLE / Unknown Collection / CDT PM CDT Unknown Moses Clinton MD LAB - MICRO GENERAL ORDER JEFFERY Performing Organization Address City/State/ZIP Code Phon e Number UU IDD LABORATORY [facility] [place] [address] Diag. Lab [address] [facility], Room [address]297 Wound Aerobic Bacterial Culture Routine with Gram Stain (07/11/2021 6:18 PM CDT) Patholo gist Method Time Signature Culture No Growth GINETTE 07/13/2021 UU IDD 10:19 AM CDT LABORATORY Gram Stain No organisms 07/13/2021 UU IDD Result seen 10:19 AM CDT LABORATORY Gram Stain 3+ WBC seen 07/13/2021 UU IDD Result 10:19 AM CDT LABORATORY Comment: Predominantly PMNs Specimen Anatomical Collection Method Collection Time Receive d Time (Source) Location / / Volume Laterality Wound STRUCTURE OF RIGHT Non-blood 07/11/2021 6:18 PM 6:18 ANKLE / Unknown Collection / CDT PM CDT Unknown Moses Clinton MD LAB - MICRO GENERAL ORDER JEFFERY Performing Organization Address City/[facility]/ZIP Code Phon e Number UU IDD LABORATORY [facility] [place] [address] Diag. Lab [address] [facility], Room [address]297 (ABNORMAL) Anaerobic Bacterial Culture Routine (07/11/2021 6:18 PM CDT) [facility] gist Method Time Signature Culture No anaerobic GINETTE 07/19/2021 UU IDD organisms isolated 8:01 AM CDT LABORATOR Y Culture 1+ Staphylococcus 07/19/2021 UU IDD simulans (A) 8:01 AM CDT LABORATORY Comment: Not isolated or reported on routine aero bic culture Susceptibilities not routinely done Specimen Anatomical Collection Method Collection Time Receive d Time (Source) Location / / Volume Laterality Wound STRUCTURE OF RIGHT Non-blood 07/11/2021 6:18 PM 7:48 ANKLE / Unknown Collection / CDT AM CDT Unknown Moses Clinton MD LAB - MICRO GENERAL ORDER JEFFERY Performing Organization Address City/[facility]/ZIP Code Phon e Number UU IDD LABORATORY [facility] [place] [address] Diag. Lab [address] [facility], [address] Extra Purple Top Tube (07/11/2021 9:09 AM CDT) athologist Signature Hold Specimen JIC 07/11/2021 UR LABORATORY 10:19 AM CDT Specimen Anatomical Collection Method / Collection Time Recei isak Time (Source) Location / Volume Laterality Blood STRUCTURE OF RIGHT Venipuncture / 07/11/2021 9:09 05/2 06/2021 9:12 UPPER LIMB / Unknown AM CDT AM CDT Unknown Jaime Rae MD LAB - BLOOD ORDERABLES Performing Organization Address City/State/ZIP Code Phon e Number UR LABORATORY [facility] [place] [address] [facility], Room [address]309 Creatinine (07/11/2021 9:09 AM CDT) athologist Signature Creatinine 0.58 0.52 - 1.04 07/11/2021 UR LABORATORY mg/dL 9:35 AM CDT GFR Estimate >90 >60 07/11/2021 UR LABORATORY mL/min/1.73 9:35 AM CDT m2 Comment: Effective February 06, 2021 eGF Rcr in adults is calculated using the 2020 CKD-EPI creatinine equation which includ es age and gender (Paul et al., NE, DOI: 10.1056/AZDGck9555481) Specimen Anatomical Collection Method / Collection Time Recei isak Time (Source) Location / Volume Laterality Blood STRUCTURE OF RIGHT Venipuncture / 07/11/2021 9:09 05/2 06/2021 9:16 UPPER LIMB / Unknown AM CDT AM CDT Unknown Jaime Rae MD LAB - BLOOD ORDERABLES Performing Organization Address City/State/ZIP Code Phon e Number UR LABORATORY [facility] [place] [phone] Care Lab [address] [facility], Room M309 (ABNORMAL) CBC with platelets and differential (07/10/2021 7:26 AM CDT) [facility] gist Method Time Signature WBC Count 7.9 4.0 - 07/10/2021 UR LABORATORY 11.0 7:56 AM CDT 10e3/uL RBC Count 3.09 (L) 3.80 - 07/10/2021 UR LABORATORY 5.20 7:56 AM CDT 10e6/uL Hemoglobin 9.6 (L) 11.7 - 07/10/2021 UR LABORATORY 15.7 g/dL 7:56 AM CDT Hematocrit 29.5 (L) 35.0 - 07/10/2021 UR LABORATORY 47.0 % 7:56 AM CDT MCV 96 78 - 100 07/10/2021 UR LABORATORY fL 7:56 AM CDT MCH 31.1 26.5 - 07/10/2021 UR LABORATORY 33.0 pg 7:56 AM CDT MCHC 32.5 31.5 - 07/10/2021 UR LABORATORY 36.5 g/dL 7:56 AM CDT RDW 14.2 10.0 - 07/10/2021 UR LABORATORY 15.0 % 7:56 AM CDT Platelet Count 289 150 - 450 07/10/2021 UR LABORATORY 10e3/uL 7:56 AM CDT % Neutrophils 48 % 07/10/2021 UR LABORATORY 7:56 AM CDT % Lymphocytes 38 % 07/10/2021 UR LABORATORY 7:56 AM CDT % Monocytes 13 % 07/10/2021 UR LABORATORY 7:56 AM CDT % Eosinophils 0 % 07/10/2021 UR LABORATORY 7:56 AM CDT % Basophils 1 % 07/10/2021 UR LABORATORY 7:56 AM CDT % Immature 0 % 07/10/2021 UR LABORATORY Granulocytes 7:56 AM CDT NRBCs per 100 0 <1 /100 07/10/2021 UR LABORATORY WBC 7:56 AM CDT Absolute 3.8 1.6 - 8.3 07/10/2021 UR LABORATORY Neutrophils 10e3/uL 7:56 AM CDT Absolute 3.0 0.8 - 5.3 07/10/2021 UR LABORATORY Lymphocytes 10e3/uL 7:56 AM CDT Absolute 1.0 0.0 - 1.3 07/10/2021 UR LABORATORY Monocytes 10e3/uL 7:56 AM CDT Absolute 0.0 0.0 - 0.7 07/10/2021 UR LABORATORY Eosinophils 10e3/uL 7:56 AM CDT Absolute 0.1 0.0 - 0.2 07/10/2021 UR LABORATORY Basophils 10e3/uL 7:56 AM CDT Absolute 0.0 <=0.4 07/10/2021 UR LABORATORY Immature 10e3/uL 7:56 AM CDT Granulocytes Absolute NRBCs 0.0 10e3/uL 07/10/2021 UR LABORATORY 7:56 AM CDT Specimen Anatomical Collection Method / Collection Time Recei isak Time (Source) Location / Volume Laterality Blood STRUCTURE OF LEFT Venipuncture / 07/10/2021 7:26 07/10 7:49 HAND / Unknown Unknown AM CDT AM CDT Jensen Ulloa MD LAB - BLOOD ORDERABLES Performing Organization Address City/State/ZIP Code [place] [phone] Care Lab [address] [facility], Room M309 (ABNORMAL) CRP inflammation (07/10/2021 7:26 AM CDT) [facility] Method Time Signature CRP Inflammation 59.0 (H) 0.0 - 8.0 07/10/2021 UR LABORATOR Y mg/L 8:08 AM CDT Specimen Anatomical Collection Method / Collection Time Recei isak Time (Source) Location / Volume Laterality Blood STRUCTURE OF LEFT Venipuncture / 07/10/2021 7:26 07/10 7:49 HAND / Unknown Unknown AM CDT AM CDT Jensen Ulloa MD LAB - BLOOD ORDERABLES Performing Organization Address City/State/ZIP Code [place] [address] Care Lab [address] [place] [address], Room M309 (ABNORMAL) CRP inflammation (07/10/2021 5:25 AM CDT) [facility] [employer] Method Time Signature CRP Inflammation 60.0 (H) 0.0 - 8.0 07/10/2021 UR LABORATOR Y mg/L 6:50 AM CDT Specimen Anatomical Collection Method / Collection Time Recei isak Time (Source) Location / Volume Laterality Blood STRUCTURE OF RIGHT Venipuncture / 07/10/2021 5:25 05/05/2021 6:17 UPPER LIMB / Unknown AM CDT AM CDT Unknown Jaime Rae MD LAB - BLOOD ORDERABLES Performing Organization Address City/[facility] Code Ph[place] [phone] [place] [address], Room M309 (ABNORMAL) CBC with platelets (07/10/2021 5:25 AM CDT[facility] Signature WBC Count 8.2 4.0 - 11.0 07/10/2021 UR LABORATORY 10e3/uL 6:28 AM CDT RBC Count 3.20 (L) 3.80 - 07/10/2021 UR LABORATORY 5.20 6:28 AM CDT 10e6/uL Hemoglobin 10.0 (L) 11.7 - 07/10/2021 UR LABORATORY 15.7 g/dL 6:28 AM CDT Hematocrit 30.3 (L) 35.0 - 07/10/2021 UR LABORATORY 47.0 % 6:28 AM CDT MCV 95 78 - 100 07/10/2021 UR LABORATORY fL 6:28 AM CDT MCH 31.3 26.5 - 07/10/2021 UR LABORATORY 33.0 pg 6:28 AM CDT MCHC 33.0 31.5 - 07/10/2021 UR LABORATORY 36.5 g/dL 6:28 AM CDT RDW 14.1 10.0 - 07/10/2021 UR LABORATORY 15.0 % 6:28 AM CDT Platelet Count 290 150 - 450 07/10/2021 UR LABORATORY 10e3/uL 6:28 AM CDT Specimen Anatomical Collection Method / Collection Time Recei isak Time (Source) Location / Volume Laterality Blood STRUCTURE OF RIGHT Venipuncture / 07/10/2021 5:25 05/2 05/2021 6:17 UPPER LIMB / Unknown AM CDT AM CDT Unknown Jaime Rae MD LAB - BLOOD ORDERABLES Performing Organization Address City/State/ZIP Code [place] [address] [facility], Room M309 (ABNORMAL) UA with Microscopic reflex to Culture (07/09/2021 5:33 PM CDT) Patholo gist Method Time Signature Color Urine Yellow Colorless, 07/09/2021 UR LABORATORY Straw, 7:00 PM CDT Light Yellow, Yellow Appearance Urine Clear Clear 07/09/2021 UR LABORATOR Y 7:00 PM CDT Glucose Urine Negative Negative 07/09/2021 UR LABORATORY mg/dL 7:00 PM CDT Bilirubin Urine Negative Negative 07/09/2021 UR LABORATORY 7:00 PM CDT Ketones Urine Negative Negative 07/09/2021 UR LABORATORY mg/dL 7:00 PM CDT Specific [place] 1.018 1.003 - 07/09/2021 UR LABORATOR Y Urine 1.035 7:00 PM CDT Blood Urine Negative Negative 07/09/2021 UR LABORATORY 7:00 PM CDT pH Urine 6.5 5.0 - 7.0 07/09/2021 UR LABORATORY 7:00 PM CDT Protein Albumin Negative Negative 07/09/2021 UR LABORATORY Urine mg/dL 7:00 PM CDT Urobilinogen Normal Normal, 2.0 07/09/2021 UR LABORATORY Urine mg/dL 7:00 PM CDT Nitrite Urine Negative Negative 07/09/2021 UR LABORATORY 7:00 PM CDT Leukocyte Negative Negative 07/09/2021 UR LABORATORY Esterase Urine 7:00 PM CDT Bacteria Urine Few (A) None Seen 07/09/2021 UR LABORATORY /HPF 7:00 PM CDT Mucus Urine Present (A) None Seen 07/09/2021 UR LABORATORY /LPF 7:00 PM CDT RBC Urine 1 <=2 /HPF 07/09/2021 UR LABORATORY 7:00 PM CDT WBC Urine 3 <=5 /HPF 07/09/2021 UR LABORATORY 7:00 PM CDT Squamous 8 (H) <=1 /HPF 07/09/2021 UR LABORATORY Epithelials 7:00 PM CDT Urine Specimen Anatomical Collection Method Collection Time Receive d Time (Source) Location / / Volume Laterality Urine URINE SPECIMEN Non-blood 07/09/2021 5:33 PM 022 6:39 OBTAINED BY CLEAN Collection / CDT PM CDT CATCH PROCEDURE / Unknown Unknown Narrative UR LABORATORY - 07/09/2021 7:00 PM CDT Urine Culture not indicated Jaime Rae MD LAB - URINE ORDERABLES Performing Organization Address City/State/ZIP Code Phon e Number UR LABORATORY [facility] [place] [phone] [facility], [address]309 Blood Culture Arm, Right (07/09/2021 12:22 PM CDT) P athologist Signature Culture No Growth 07/14/2021 UU IDD 2:04 PM CDT LABORATORY Specimen Anatomical Collection Method / Collection Time Recei isak Time (Source) Location / Volume Laterality Blood STRUCTURE OF RIGHT Venipuncture / 07/09/2021 12:22 UPPER LIMB / Unknown PM CDT 12:57 PM CDT Unknown Jaime Rae MD LAB - MICRO GENERAL ORDERABL ES Performing Organization Address City/State/ZIP Code Phon e Number UU IDD LABORATORY [facility] [place] [address] Diag. Lab [address] [facility], [address] Blood Culture Arm, Left (07/09/2021 12:22 PM CDT) athologist Signature Culture No Growth 07/14/2021 UU IDD 2:04 PM CDT LABORATORY Specimen Anatomical Collection Method Collection Time Receive d Time (Source) Location / / Volume Laterality Blood STRUCTURE OF LEFT VAD(CVC, PICC) / 07/09/2021 12:22 UPPER LIMB / Unknown PM CDT 12:58 PM CDT Unknown Jaime Rae MD LAB - MICRO GENERAL ORDERABL ES Performing Organization Address City/State/ZIP Code Phon e Number UU IDD LABORATORY [facility] [place] [address] Diag. Lab [address] [facility], Room [address]297 (ABNORMAL) CRP inflammation (07/09/2021 12:22 PM CDT) [facility] gist Method Time Signature CRP Inflammation 43.0 (H) 0.0 - 8.0 07/09/2021 UR LABORATOR Y mg/L 12:51 PM CDT Specimen Anatomical Collection Method Collection Time Receive d Time (Source) Location / / Volume Laterality Blood STRUCTURE OF LEFT VAD(CVC, PICC) / 07/09/2021 12:22 UPPER LIMB / Unknown PM CDT 12:30 PM CDT Unknown Jaime Rae MD LAB - BLOOD ORDERABLES Performing Organization Address City/[facility]/ZIP Code [place] [phone] [facility], Room M309 ALT (07/09/2021 12:22 PM CDT) P athologist Signature ALT 27 0 - 50 U/L 07/09/2021 UR LABORATORY 12:51 PM CDT Specimen Anatomical Collection Method Collection Time Receive d Time (Source) Location / / Volume Laterality Blood STRUCTURE OF LEFT VAD(CVC, PICC) / 07/09/2021 12:22 UPPER LIMB / Unknown PM CDT 12:30 PM CDT Unknown Jaime Rae MD LAB - BLOOD ORDERABLES Performing Organization Address City/State/ZIP Code [place] [address] [facility], Room M309 (ABNORMAL) Basic metabolic panel (07/09/2021 12:22 PM CDT) Analysis Performed At Patho logist Time Signature Sodium 139 133 - 144 07/09/2021 UR LABORATORY mmol/L 12:51 PM CDT Potassium 3.6 3.4 - 5.3 07/09/2021 UR LABORATORY mmol/L 12:51 PM CDT Chloride 104 94 - 109 07/09/2021 UR LABORATORY mmol/L 12:51 PM CDT Carbon Dioxide 28 20 - 32 07/09/2021 UR LABORATORY (CO2) mmol/L 12:51 PM CDT Anion Gap 7 3 - 14 07/09/2021 UR LABORATORY mmol/L 12:51 PM CDT Urea Nitrogen 9 7 - 30 07/09/2021 UR LABORATORY mg/dL 12:51 PM CDT Creatinine 0.55 0.52 - 07/09/2021 UR LABORATORY 1.04 mg/dL 12:51 PM CDT Calcium 9.2 8.5 - 10.1 07/09/2021 UR LABORATORY mg/dL 12:51 PM CDT Glucose 117 (H) 70 - 99 07/09/2021 UR LABORATORY mg/dL 12:51 PM CDT GFR Estimate >90 >60 07/09/2021 UR LABORATORY mL/min/1.7 12:51 PM CDT 3m2 Comment: Effective February 06, 2021 eGF Rcr in adults is calculated using the 2020 CKD-EPI creatinine equation which includ es age and gender (Paul et al., NEJ, DOI: 10.1056/[id number]) Specimen Anatomical Collection Method Collection Time Receive d Time (Source) Location / / Volume Laterality Blood STRUCTURE OF LEFT VAD(CVC, PICC) / 07/09/2021 12:22 UPPER LIMB / Unknown PM CDT 12:30 PM CDT Unknown Jaime Rae MD LAB - BLOOD ORDERABLES Performing Organization Address City/State/ZIP Code Phon e Number UR LABORATORY [facility] [place] [address] [facility], Room M309 (ABNORMAL) CBC with platelets (07/09/2021 12:22 PM CDT) Patholo gist Method Time Signature WBC Count 9.3 4.0 - 11.0 07/09/2021 UR LABORATORY 10e3/uL 12:39 PM CDT RBC Count 3.15 (L) 3.80 - 07/09/2021 UR LABORATORY 5.20 12:39 PM CDT 10e6/uL Hemoglobin 10.0 (L) 11.7 - 07/09/2021 UR LABORATORY 15.7 g/dL 12:39 PM CDT Hematocrit 30.6 (L) 35.0 - 07/09/2021 UR LABORATORY 47.0 % 12:39 PM CDT MCV 97 78 - 100 07/09/2021 UR LABORATORY fL 12:39 PM CDT MCH 31.7 26.5 - 07/09/2021 UR LABORATORY 33.0 pg 12:39 PM CDT MCHC 32.7 31.5 - 07/09/2021 UR LABORATORY 36.5 g/dL 12:39 PM CDT RDW 14.6 10.0 - 07/09/2021 UR LABORATORY 15.0 % 12:39 PM CDT Platelet Count 321 150 - 450 07/09/2021 UR LABORATORY 10e3/uL 12:39 PM CDT Specimen Anatomical Collection Method Collection Time Receive d Time (Source) Location / / Volume Laterality Blood STRUCTURE OF LEFT VAD(CVC, PICC) / 07/09/2021 12:22 UPPER LIMB / Unknown PM CDT 12:30 PM CDT Unknown Jaime Rae MD LAB - BLOOD ORDERABLES Performing Organization Address City/State/ZIP Code [place] [address] [facility], Room [address]309 ECHO COMPLETE (07/08/2021 1:04 PM CDT) P athologist Signature LVEF 55-60% CARDIOLOGY RESULTS Anatomical Region Laterality Modality Echocardiography Specimen (Source) Anatomical Collection Method Collection Time Re ceived Time Location / / Volume Laterality 07/08/2021 12:07 PM CDT Narrative 07/08/2021 2:15 PM CDT [id number]^BUTCH^JAIME [facility] Echocardiography Laboratory [address] [place] [address] Name: DEANN KING : 1980 Study Date: 07/08/2021 12:07 PM Age: 40 yrs Gender: Female Patient Location: [facility] Reason For Study: Endocarditis Ordering Physician: JAIME RAE Performed By: Terri Pina BSA: 1.9 m2 Height: 66 in Weight: 180 lb HR: 66 BP: 135/75 mmHg Procedure Complete Portable Echo Adult. Interpretation Summary Global and regional left ventricular fun ction is normal with an EF of 55-60%. Global right ventricular function is nor mal. The right ventricle is normal size. No significant valvular abnormalities. The estimated PA systolic pressure is 25 mmHg. IVC diameter <2.1 cm collapsing >50% wit h sniff suggests a normal RA pressure of 3 mmHg. There is no prior study for direct marti rison. Left Ventricle Global and regional left ventricular fun ction is normal with an EF of 55-60%. Left ventricular wall thickness is musa l. Left ventricular size is normal. Left ventricular diastolic function is n ormal. Right Ventricle Global right ventricular function is nor mal. The right ventricle is normal size. Atria Both atria appear normal. Mitral Valve The mitral valve is normal. Trace mitral insufficiency is present. Aortic Valve The aortic valve is tricuspid. On Dopple r interrogation, there is no significant stenosis or regurgitation. Tricuspid Valve The valve leaflets are not well visualiz ed. Mild tricuspid insufficiency is present. The right ventricular systolic pressure is approximated at 21.5 mmHg plus the right atrial pressure. Pulmonic Valve The valve leaflets are not well visualiz ed. Trace pulmonic insufficiency is present. Vessels Sinuses of Valsalva 3.0 cm. Ascending ao rta 3.3 cm. IVC diameter <2.1 cm collapsing >50% with sniff suggests a no rmal RA pressure of 3 mmHg. Pericardium No pericardial effusion is present. Compared to Previous Study There is no prior study for direct marti rison. MMode/2D Measurements & Calculations IVSd: 0.84 cm LVIDd: 4.6 cm LVIDs: 2.5 cm LVPWd: 0.94 cm FS: 45.1 % LV mass(C)d: 134.9 grams LV mass(C)dI: 70.5 grams/m2 Ao root diam: 3.0 cm asc Aorta Diam: 3.3 cm LVOT diam: 2.1 cm LVOT area: 3.5 cm2 RWT: 0.41 Doppler Measurements & Calculations MV E max yobani: 84.4 cm/sec MV A max yobani: 47.4 cm/sec MV E/A: 1.8 TR max yobani: 232.0 cm/sec TR max P.5 mmHg E/E' av.0 Lateral E/e': 6.3 Medial E/e': 9.6 Report approved by: Abdifatah Martinez 02:15 PM Procedure Note Matheus Jo MD - 07/08/2021 [id number]^BUTCH^JAIME [facility] Echocardiography Laboratory [address] [place] [id number] Name: DEANN KING : 1980 Study Date: 07/08/2021 12:07 PM Age: 40 yrs Gender: Female Patient Location: [facility] [place] Reason For Study: Endocarditis Ordering Physician: JAIME RAE Performed By: Terri Pina BSA: 1.9 m2 Height: 66 in Weight: 180 lb HR: 66 BP: 135/75 mmHg Procedure Complete Portable Echo Adult. Interpretation Summary Global and regional left ventricular fun ction is normal with an EF of 55-60%. Global right ventricular function is nor mal. The right ventricle is normal size. No significant valvular abnormalities. The estimated PA systolic pressure is 25 mmHg. IVC diameter <2.1 cm collapsing >50% wit h sniff suggests a normal RA pressure of 3 mmHg. There is no prior study for direct marti rison. Left Ventricle Global and regional left ventricular fun ction is normal with an EF of 55-60%. Left ventricular wall thickness is musa l. Left ventricular size is normal. Left ventricular diastolic function is n ormal. Right Ventricle Global right ventricular function is nor mal. The right ventricle is normal size. Atria Both atria appear normal. Mitral Valve The mitral valve is normal. Trace mitral insufficiency is present. Aortic Valve The aortic valve is tricuspid. On Dopple r interrogation, there is no significant stenosis or regurgitation. Tricuspid Valve The valve leaflets are not well visualiz ed. Mild tricuspid insufficiency is present. The right ventricular systolic pressure is approximated at 21.5 mmHg plus the right atrial pressure. Pulmonic Valve The valve leaflets are not well visualiz ed. Trace pulmonic insufficiency is present. Vessels Sinuses of Valsalva 3.0 cm. Ascending ao rta 3.3 cm. IVC diameter <2.1 cm collapsing >50% with sniff suggests a no rmal RA pressure of 3 mmHg. Pericardium No pericardial effusion is present. Compared to Previous Study There is no prior study for direct marti rison. MMode/2D Measurements & Calculations IVSd: 0.84 cm LVIDd: 4.6 cm LVIDs: 2.5 cm LVPWd: 0.94 cm FS: 45.1 % LV mass(C)d: 134.9 grams LV mass(C)dI: 70.5 grams/m2 Ao root diam: 3.0 cm asc Aorta Diam: 3.3 cm LVOT diam: 2.1 cm LVOT area: 3.5 cm2 RWT: 0.41 Doppler Measurements & Calculations MV E max yobani: 84.4 cm/sec MV A max yobani: 47.4 cm/sec MV E/A: 1.8 TR max yobani: 232.0 cm/sec TR max P.5 mmHg E/E' av.0 Lateral E/e': 6.3 Medial E/e': 9.6 Report approved by: Abdifatah Martinez 02:15 PM Jaime Rae MD CV ECHO ORDERABLES (ABNORMAL) CBC with platelets (07/08/2021 7:14 AM CDT) [facility] Method Time Signature WBC Count 7.0 4.0 - 11.0 07/08/2021 UR LABORATORY 10e3/uL 7:48 AM CDT RBC Count 2.97 (L) 3.80 - 07/08/2021 UR LABORATORY 5.20 7:48 AM CDT 10e6/uL Hemoglobin 9.3 (L) 11.7 - 07/08/2021 UR LABORATORY 15.7 g/dL 7:48 AM CDT Hematocrit 28.8 (L) 35.0 - 07/08/2021 UR LABORATORY 47.0 % 7:48 AM CDT MCV 97 78 - 100 07/08/2021 UR LABORATORY fL 7:48 AM CDT MCH 31.3 26.5 - 07/08/2021 UR LABORATORY 33.0 pg 7:48 AM CDT MCHC 32.3 31.5 - 07/08/2021 UR LABORATORY 36.5 g/dL 7:48 AM CDT RDW 14.2 10.0 - 07/08/2021 UR LABORATORY 15.0 % 7:48 AM CDT Platelet Count 277 150 - 450 07/08/2021 UR LABORATORY 10e3/uL 7:48 AM CDT Specimen Anatomical Collection Method / Collection Time Recei isak Time (Source) Location / Volume Laterality Blood STRUCTURE OF RIGHT Venipuncture / 07/08/2021 7:14 2 03/2021 7:45 HAND / Unknown Unknown AM CDT AM CDT Jaime Rae MD LAB - BLOOD ORDERABLES Performing Organization Address City/State/ZIP Code [place] [address] [address] [place] [address], Room [address]309 (ABNORMAL) Erythrocyte sedimentation rate auto (07/08/2021 7:14 AM CDT) Patholo gist Method Time Signature Erythrocyte 102 (H) 0 - 20 07/08/2021 UR LABORATORY Sedimentation mm/hr 8:02 AM CDT Rate Specimen Anatomical Collection Method / Collection Time Recei isak Time (Source) Location / Volume Laterality Blood STRUCTURE OF RIGHT Venipuncture / 07/08/2021 7:14 /03/2021 7:45 HAND / Unknown Unknown AM CDT AM CDT Nathaniel Tinoco MD LAB - BLOOD ORDERABLES Performing Organization Address City/State/ZIP Code [place] [address] [address] [place] [address], Room [facility] (ABNORMAL) CRP inflammation (07/08/2021 7:14 AM CDT) Patholo gist Method Time Signature CRP Inflammation 57.0 (H) 0.0 - 8.0 07/08/2021 UR LABORATOR Y mg/L 8:08 AM CDT Specimen Anatomical Collection Method / Collection Time Recei isak Time (Source) Location / Volume Laterality Blood STRUCTURE OF RIGHT Venipuncture / 07/08/2021 7:14 06/18 7:45 HAND / Unknown Unknown AM CDT AM CDT Nathaniel Tinoco MD LAB - BLOOD ORDERABLES Performing Organization Address City/State/ZIP Code [place] [address] Care Lab [address] [place] [address], Room [address]309 US Abdomen Complete (07/07/2021 3:33 PM CDT) Anatomical Region Laterality Modality Abdomen/Pelvis Ultrasound Specimen (Source) Anatomical Location Collection Method / Collectio n Time Received Time / Laterality Volume Impressions 07/07/2021 10:08 PM CDT IMPRESSION: Hepatosplenomegaly and diffuse hepatic s teatosis. I have personally reviewed the examinati on and initial interpretation and I agree with the findings. KIMBERLY JACOBSON MD Narrative 07/07/2021 10:08 PM CDT EXAMINATION: US ABDOMEN COMPLETE, ??07/07/2021 3:33 PM COMPARISON: None. HISTORY: Elevated LFTs, recent encephalo arnoldo, evaluate for ascites, changes c/w cirrhosis TECHNIQUE: The abdomen was scanned in st andard fashion with specialized ultrasound transducer(s) usi ng both leigh-scale and limited color Doppler techniques. FINDINGS: Liver: The liver is enlarged measuring 2 1.9 cm in the craniocaudal dimension. The liver demonstrates homoge nous and echogenic liver parenchyma. No focal hepatic lesions, al though limited by rib shadowing. The main portal vein is paten t with antegrade flow. Gallbladder: ??There is no wall thickeni ng, pericholecystic fluid, positive sonographic Mckeon's sign or ev idence for cholelithiasis. Bile Ducts: Both the intra- and extrahep atic biliary system are of normal caliber. ??The common bile duct m easures 2 mm in diameter. Pancreas: Visualized portions of the hea d and body of the pancreas are unremarkable. Kidneys: Both kidneys are of normal echo texture, without mass or hydronephrosis. ?? The craniocaudal dime nsions are: right- 12.1 cm, left- 11.9 cm. Spleen: The spleen is enlarged measuring 15.0 cm in sagittal dimension. Aorta and IVC: The visualized portions o f the aorta and IVC are unremarkable. The proximal aorta measure s 2.7 cm in diameter and the IVC measures 1.9 cm in diameter. Fluid: No evidence of ascites or pleural effusions. Procedure Note Kimberly Jacobson MD - 07/07/2021 EXAMINATION: US ABDOMEN COMPLETE, 022 3:33 PM COMPARISON: None. HISTORY: Elevated LFTs, recent encephalo arnoldo, evaluate for ascites, changes c/w cirrhosis TECHNIQUE: The abdomen was scanned in st andard fashion with specialized ultrasound transducer(s) usi ng both leigh-scale and limited color Doppler techniques. FINDINGS: Liver: The liver is enlarged measuring 2 1.9 cm in the craniocaudal dimension. The liver demonstrates homoge nous and echogenic liver parenchyma. No focal hepatic lesions, al though limited by rib shadowing. The main portal vein is paten t with antegrade flow. Gallbladder: There is no wall thickening , pericholecystic fluid, positive sonographic Mckeon's sign or ev idence for cholelithiasis. Bile Ducts: Both the intra- and extrahep atic biliary system are of normal caliber. The common bile duct divya sures 2 mm in diameter. Pancreas: Visualized portions of the hea d and body of the pancreas are unremarkable. Kidneys: Both kidneys are of normal echo texture, without mass or hydronephrosis. The craniocaudal dimensi ons are: right- 12.1 cm, left- 11.9 cm. Spleen: The spleen is enlarged measuring 15.0 cm in sagittal dimension. Aorta and IVC: The visualized portions o f the aorta and IVC are unremarkable. The proximal aorta measure s 2.7 cm in diameter and the IVC measures 1.9 cm in diameter. Fluid: No evidence of ascites or pleural effusions. IMPRESSION: Hepatosplenomegaly and diffuse hepatic s teatosis. I have personally reviewed the examinati on and initial interpretation and I agree with the findings. KIMBERLY JACOBSON MD Jaime Rae MD IM US ORDERABLES Blood Culture Line, venous (07/07/2021 12:35 PM CDT) athologist Signature Culture No Growth 07/12/2021 UU IDD 2:34 PM CDT LABORATORY Specimen Anatomical Collection Method Collection Time Receive d Time (Source) Location / / Volume Laterality Blood VENOUS LINE / VAD(CVC, PICC) / 07/07/2021 12:35 2021 1:01 Unknown Unknown PM CDT PM CDT Nathaniel Tinoco MD LAB - MICRO GENERAL ORDERABL ES Performing Organization Address City/State/ZIP Code Phon e Number [facility] LABORATORY [facility] [place] [phone] Diag. Lab [address] [facility], [address] Blood Culture Line, venous (07/07/2021 12:35 PM CDT) athologist Signature Culture No Growth 07/12/2021 [facility] IDD 2:34 PM CDT LABORATORY Specimen Anatomical Collection Method Collection Time Receive d Time (Source) Location / / Volume Laterality Blood VENOUS LINE / VAD(CVC, PICC) / 07/07/2021 12:35 2021 1:01 Unknown Unknown PM CDT PM CDT Nathaniel Tinoco MD LAB - MICRO GENERAL ORDERABL ES Performing Organization Address City/State/ZIP Code Phon e Number [facility] LABORATORY [facility] [place] [phone] Diag. Lab [address] [facility], [address]297 (ABNORMAL) Phosphorus (07/07/2021 12:35 PM CDT) P athologist Signature Phosphorus 4.8 (H) 2.5 - 4.5 07/07/2021 UR LABORATORY mg/dL 2:13 PM CDT Specimen Anatomical Collection Method Collection Time Receive d Time (Source) Location / / Volume Laterality Blood VENOUS LINE / VAD(CVC, PICC) / 07/07/2021 12:35 2021 1:01 Unknown Unknown PM CDT PM CDT Nathaniel Tinoco MD LAB - BLOOD ORDERABLES Performing Organization Address City/[facility]/ZIP Code Ph[place] [address] Care Lab [address] [place] [address], Room [address]309 Magnesium (07/07/2021 12:35 PM CDT) P athologist Signature Magnesium 2.1 1.6 - 2.3 07/07/2021 UR LABORATORY mg/dL 2:13 PM CDT Specimen Anatomical Collection Method Collection Time Receive d Time (Source) Location / / Volume Laterality Blood VENOUS LINE / VAD(CVC, PICC) / 07/07/2021 12:35 2021 1:01 Unknown Unknown PM CDT PM CDT Nathaniel Tinoco MD LAB - BLOOD ORDERABLES Performing Organization Address City/State/ZIP Code [place] [address] Care Lab [address] [place] [address], Room [address]309 (ABNORMAL) CBC with platelets (07/07/2021 12:35 PM CDT) [facility] Method Time Signature WBC Count 8.6 4.0 - 11.0 07/07/2021 UR LABORATORY 10e3/uL 1:05 PM CDT RBC Count 3.33 (L) 3.80 - 07/07/2021 UR LABORATORY 5.20 1:05 PM CDT 10e6/uL Hemoglobin 10.4 (L) 11.7 - 07/07/2021 UR LABORATORY 15.7 g/dL 1:05 PM CDT Hematocrit 32.0 (L) 35.0 - 07/07/2021 UR LABORATORY 47.0 % 1:05 PM CDT MCV 96 78 - 100 07/07/2021 UR LABORATORY fL 1:05 PM CDT MCH 31.2 26.5 - 07/07/2021 UR LABORATORY 33.0 pg 1:05 PM CDT MCHC 32.5 31.5 - 07/07/2021 UR LABORATORY 36.5 g/dL 1:05 PM CDT RDW 14.4 10.0 - 07/07/2021 UR LABORATORY 15.0 % 1:05 PM CDT Platelet Count 308 150 - 450 07/07/2021 UR LABORATORY 10e3/uL 1:05 PM CDT Specimen Anatomical Collection Method Collection Time Receive d Time (Source) Location / / Volume Laterality Blood VENOUS LINE / VAD(CVC, PICC) / 07/07/2021 12:35 2021 1:01 Unknown Unknown PM CDT PM CDT Nathaniel Tinoco MD LAB - BLOOD ORDERABLES Performing Organization Address City/State/ZIP Code Phon e Number UR LABORATORY [facility] [place] [address] [facility], [address]309 (ABNORMAL) Comprehensive metabolic panel (07/07/2021 12:35 PM CDT) [facility] Method Time Signature Sodium 137 133 - 144 07/07/2021 UR LABORATORY mmol/L 2:13 PM CDT Potassium 4.1 3.4 - 5.3 07/07/2021 UR LABORATORY mmol/L 2:13 PM CDT Chloride 102 94 - 109 07/07/2021 UR LABORATORY mmol/L 2:13 PM CDT Carbon Dioxide 25 20 - 32 07/07/2021 UR LABORATORY (CO2) mmol/L 2:13 PM CDT Anion Gap 10 3 - 14 07/07/2021 UR LABORATORY mmol/L 2:13 PM CDT Urea Nitrogen 6 (L) 7 - 30 07/07/2021 UR LABORATORY mg/dL 2:13 PM CDT Creatinine 0.57 0.52 - 07/07/2021 UR LABORATORY 1.04 mg/dL 2:13 PM CDT Calcium 9.2 8.5 - 10.1 07/07/2021 UR LABORATORY mg/dL 2:13 PM CDT Glucose 136 (H) 70 - 99 07/07/2021 UR LABORATORY mg/dL 2:13 PM CDT Alkaline 204 (H) 40 - 150 07/07/2021 UR LABORATORY Phosphatase U/L 2:13 PM CDT AST 52 (H) 0 - 45 U/L 07/07/2021 UR LABORATORY 2:13 PM CDT ALT 32 0 - 50 U/L 07/07/2021 UR LABORATORY 2:13 PM CDT Protein Total 7.9 6.8 - 8.8 07/07/2021 UR LABORATORY g/dL 2:13 PM CDT Albumin 2.3 (L) 3.4 - 5.0 07/07/2021 UR LABORATORY g/dL 2:13 PM CDT Bilirubin Total 1.3 0.2 - 1.3 07/07/2021 UR LABORATORY mg/dL 2:13 PM CDT GFR Estimate >90 >60 07/07/2021 UR LABORATORY mL/min/1.7 2:13 PM CDT 3m2 Comment: Effective February 06, 2021 eGF Rcr in adults is calculated using the 2020 CKD-EPI creatinine equation which includ es age and gender (Paul et al., NEJM, DOI: 10.1056/SWPQhi1583242) Specimen Anatomical Collection Method Collection Time Receive d Time (Source) Location / / Volume Laterality Blood VENOUS LINE / VAD(CVC, PICC) / 07/07/2021 12:35 2021 1:01 Unknown Unknown PM CDT PM CDT Nathaniel Tinooc MD LAB - BLOOD ORDERABLES Performing Organization Address City/State/ZIP Code Phon e Number UR LABORATORY [facility] [address] [facility], Room [address]309 (ABNORMAL) Tissue Aerobic Bacterial Culture Routine (07/07/2021 8:43 AM CDT) [facility] Method Time Signature Culture 1+ Staphylococcus GINETTE 07/12/2021 U[facility] IDD simulans (A) 10:33 AM LABORATORY CDT Comment: Susceptibilities not routinely done Specimen Anatomical Collection Method Collection Time Receive d Time (Source) Location / / Volume Laterality Tissue RIGHT HEEL Non-blood 07/07/2021 8:43 AM 9:26 STRUCTURE / Collection / CDT AM CDT Unknown Unknown Narrative [facility] LABORATORY - 07/12/2021 10:33 AM CDT Susceptibility testing requested by Dr. Flakito Pulido 1932. This specimen was received on a swab. Re sults may not be optimal. For maximum sensitivity of detection submit tissue, fluid or fine needle aspirate. Organism Antibiotic Method Susceptibility Staphylococcus simulans Oxacillin GINETTE Suscepti ble Comment: Oxacillin susceptib le isolates are susceptible to cephalosporins (example: cefazolin and cephalexin) an d beta lactam combination agents. Oxacillin resistant isolates are resistant to th naa agents. Staphylococcus simulans Gentamicin GINETTE <=0.5 ug /mL: Susceptible Staphylococcus simulans Ciprofloxacin GINETTE <=0.5 ug /mL: Susceptible Staphylococcus simulans Levofloxacin GINETTE 0.25 ug/ mL: Susceptible Staphylococcus simulans Erythromycin GINETTE >=8.0 ug /mL: Resistant Staphylococcus simulans Clindamycin GINETTE >=8.0 ug /mL: Resistant Staphylococcus simulans Vancomycin GINETTE <=0.5 ug /mL: Susceptible Staphylococcus simulans Tetracycline GINETTE <=1.0 ug /mL: Susceptible Comment: Antibiotics listed as No Inter pretation have no regulatory guidelines for susceptibility/resistance available. Eliud Olivera MD LAB - MICRO GENERAL ORDER JEFFERY Performing Organization Address City/State/ZIP Code Phon e Number [facility] ID[facility] LABORATORY [facility] [place] [address] Diag. Lab [address] [facility], [address] Anaerobic Bacterial Culture Routine (07/07/2021 8:43 AM CDT) [facility] Method Time Signature Culture No anaerobic GINETTE 07/14/2021 [facility] IDD organisms 7:57 AM CDT LABORATORY isolated Specimen Anatomical Collection Method Collection Time Receive d Time (Source) Location / / Volume Laterality Tissue RIGHT HEEL Non-blood 07/07/2021 8:43 AM 2 9:27 STRUCTURE / Collection / CDT AM CDT Unknown Unknown Narrative [facility] LABORATORY - 07/14/2021 7:57 AM C DT This specimen was received on a swab. Results may not be optimal. For maximum sensitivity of detection submit tissue, fluid or fine needle aspirate. Eliud Olivera MD LAB - MICRO GENERAL ORDER JEFFERY Performing Organization Address City/[facility] Phon e Number [facility] IDD LABORATORY [facility] [place] [address] Diag. Lab [address] [facility] [address] Tissue Aerobic Bacterial Culture Routine (07/07/2021 8:42 AM CDT) athologist Signature Culture 1+ Normal GINETTE 07/09/2021 UU IDD evelina 10:15 AM CDT LABORATORY Specimen Anatomical Collection Method Collection Time Receive d Time (Source) Location / / Volume Laterality Tissue RIGHT HEEL Non-blood 07/07/2021 8:42 AM 2 9:26 STRUCTURE / Collection / CDT AM CDT Unknown Unknown Narrative [facility] LABORATORY - 07/09/2021 10:15 AM CDT This specimen was received on a swab. Results may not be optimal. For maximum sensitivity of detection submit tissue, fluid or fine needle aspirate. Eliud Olivera MD LAB - MICRO GENERAL ORDER JEFFERY Performing Organization Address City/State/[facility] Phon e Number [facility] IDD LABORATORY [facility] [place] [address] [facility] [address] Anaerobic Bacterial Culture Routine (07/07/2021 8:42 AM CDT) [facility] Method Time Signature Culture No anaerobic GINETTE 07/14/2021 U[facility] IDD organisms 7:57 AM CDT LABORATORY isolated Specimen Anatomical Collection Method Collection Time Receive d Time (Source) Location / / Volume Laterality Tissue RIGHT HEEL Non-blood 07/07/2021 8:42 AM 9:27 STRUCTURE / Collection / CDT AM CDT Unknown Unknown Narrative [facility] LABORATORY - 07/14/2021 7:57 AM C DT This specimen was received on a swab. Results may not be optimal. For maximum sensitivity of detection submit tissue, fluid or fine needle aspirate. Eliud Olivera MD LAB - MICRO GENERAL ORDER JEFFERY Performing Organization Address City/[facility] Code Phon e Number [facility] IDD LABORATORY [facility] [place] [address] Diag. Lab [address] [facility], [address] Wound Aerobic Bacterial Culture Routine (07/07/2021 8:41 AM CDT) P athologist Signature Culture 1+ Normal GINETTE 07/09/2021 UU IDD evelina 10:18 AM CDT LABORATORY Specimen Anatomical Collection Method Collection Time Receive d Time (Source) Location / / Volume Laterality Wound STRUCTURE OF RIGHT Non-blood 07/07/2021 8:41 AM 9:26 ANKLE / Unknown Collection / CDT AM CDT Unknown Narrative [facility] LABORATORY - 07/09/2021 10:18 AM CDT This specimen was received on a swab. Results may not be optimal. For maximum sensitivity of detection submit tissue, fluid or fine needle aspirate. Eliud Olivera MD LAB - MICRO GENERAL ORDER JEFFERY Performing Organization Address City/[facility] Phon e Number [facility] IDD LABORATORY [facility] [place] [address] Diag. Lab [address] [facility], [address] Anaerobic Bacterial Culture Routine (07/07/2021 8:41 AM CDT) Patholo gist Method Time Signature Culture No anaerobic GINETTE 07/14/2021 UU IDD organisms 8:02 AM CDT LABORATORY isolated Specimen Anatomical Collection Method Collection Time Receive d Time (Source) Location / / Volume Laterality Wound STRUCTURE OF RIGHT Non-blood 07/07/2021 8:41 AM 9:27 ANKLE / Unknown Collection / CDT AM CDT Unknown Narrative [facility] LABORATORY - 07/14/2021 8:02 AM C DT This specimen was received on a swab. Results may not be optimal. For maximum sensitivity of detection submit tissue, fluid or fine needle aspirate. Eliud Olivera MD LAB - MICRO GENERAL ORDER JEFFERY Performing Organization Address City/State/ZIP Code Phon e Number [facility] IDD LABORATORY [facility] [place] [address] Diag. Lab [address] [facility], [address] Asymptomatic COVID-19 Virus (Coronavirus) by PCR Nasopharyngeal (07/06/2021 6:11 PM CDT) Analysis Performed At Patho logist Time Signature SARS CoV2 PCR Negative Negative 07/06/2021 UR LABORATORY 7:33 PM CDT Comment: NEGATIVE: SARS-CoV-2 (COVID-19) RNA not detected, presumed negative. Specimen Anatomical Location / Collection Method Collection Jeff e Received Time (Source) Laterality / Volume Swab NASOPHARYNGEAL Non-blood 07/06/2021 6:11 07/06/2021 6:21 STRUCTURE / Unknown Collection / PM CDT PM CDT Unknown Narrative UR LABORATORY - 07/06/2021 7:33 PM CDT Testing was performed using the leonardo?? SARS-CoV-2 & Influenza A/B Assay on the leonardo?? Mervat?? System. ??This test shoul d be [...] exposure or clinical presentation sugges ts COVID-19. ??[facility] are certified under the Clinical Laborat ory Improvement Amendments of 1988 (CLIA-88) as qualified to perform moderate and/or high complexity laboratory testing. Ernesto Martínez MD LAB - MICRO GENERAL ORDERABL ES Performing Organization Address City/State/ZIP Code [place] [address] [address] [facility], [address] Blood Culture Arm, Left (07/06/2021 3:56 PM CDT) athologist Signature Culture No Growth 07/11/2021 UU IDD 5:03 PM CDT LABORATORY Specimen Anatomical Collection Method / Collection Time Recei isak Time (Source) Location / Volume Laterality Blood STRUCTURE OF LEFT Venipuncture / 07/06/2021 3:56 07/06 4:04 UPPER LIMB / Unknown PM CDT PM CDT Unknown Jah Thompson MD LAB - MICRO GENERAL ORDERABL ES Performing Organization Address City/[facility]/ZIP Code Phon e Number [facility]U IDD LABORATORY [facility] [place] [phone] Diag. Lab [address] [facility], Room [address]297 (ABNORMAL) Iron and iron binding capacity (07/06/2021 3:34 PM CDT) athologist Signature Iron 35 35 - 180 07/06/2021 UR LABORATORY ug/dL 9:22 PM CDT Iron Binding 288 240 - 430 07/06/2021 UR LABORATORY Capacity ug/dL 9:22 PM CDT Iron Sat Index 12 (L) 15 - 46 % 07/06/2021 UR LABORATORY 9:22 PM CDT Specimen Anatomical Collection Method / Collection Time Recei isak Time (Source) Location / Volume Laterality Blood STRUCTURE OF RIGHT Venipuncture / 07/06/2021 3:34 05/2 4:06 UPPER LIMB / Unknown PM CDT PM CDT Unknown Rossana Odell CNP LAB - BLOOD ORDERABLES Performing Organization Address City/[facility]/ZIP Code [place] [address] Care Lab [address] [facility], Room M309 (ABNORMAL) Hepatitis C RNA, Quantitative by PCR (07/06/2021 3:34 PM CDT) [facility] Method Time Signature Hepatitis C RNA 130,453 <1 IU/mL 07/09/2021 UU IDD IU/mL, (H) 1:38 PM CDT LABORATORY Instrument Hepatitis C log 5.1 07/09/2021 UU IDD 1:38 PM CDT LABORATORY Specimen Anatomical Collection Method / Collection Time Recei isak Time (Source) Location / Volume Laterality Blood STRUCTURE OF RIGHT Venipuncture / 07/06/2021 3:34 05/2 4:06 UPPER LIMB / Unknown PM CDT PM CDT Unknown Narrative [facility] LABORATORY - 07/09/2021 1:38 PM C DT The LEONARDO AmpliPrep/LEONARDO TaqMan HCV charito t is a FDA-approved in vitro nucleic acid amplification test for the quantitation of HCV DNA in human plasma (EDTA plasma) or serum using the LEONARDO AmpliPrep instrume nt for automated viral nucleic acid extraction and the LEONARDO TaqMan for the automated real-time PCR amplification and detection of viral nucleic acid target. Titer results are reported in International Units/mL (IU/mL) using the 1st WHO Inter national standard for HBV for nucleic acid amplification assays. Leora Oh MD LAB - BLOOD ORDERABLES Performing Organization Address City/State/ZIP Code Phon e Number [facility]U IDD LABORATORY [facility] [place] [address] Diag. Lab [address] [facility], [address] Adult Type and Screen (07/06/2021 3:34 PM CDT) [facility] Method Time Signature ABO/RH(D) B POS 07/06/2021 UR BLOOD 2:15 PM CDT BANK Antibody Negative Negative 07/06/2021 UR BLOOD Screen 2:15 PM CDT BANK SPECIMEN [id number] 07/06/2021 UR BLOOD EXPIRATION 2:15 PM CDT BANK DATE Specimen Anatomical Collection Method / Collection Time Recei isak Time (Source) Location / Volume Laterality Blood STRUCTURE OF RIGHT Venipuncture / 07/06/2021 3:34 05/2 4:06 UPPER LIMB / Unknown PM CDT PM CDT Unknown Jah Thompson MD LAB - BLOOD BANK TEST ORDER Performing Organization Address City/State/ZIP Code Phon e Number UR BLOOD BANK [place] [address] Components Lab [address] [facility], Room M301 (ABNORMAL) Hepatic panel (07/06/2021 3:34 PM CDT) Patholo gist Method Time Signature Bilirubin Total 1.3 0.2 - 1.3 07/06/2021 UR LABORATORY mg/dL 4:31 PM CDT Bilirubin Direct 0.8 (H) 0.0 - 0.2 07/06/2021 UR LABORATOR Y mg/dL 4:31 PM CDT Protein Total 7.2 6.8 - 8.8 07/06/2021 UR LABORATORY g/dL 4:31 PM CDT Albumin 2.1 (L) 3.4 - 5.0 07/06/2021 UR LABORATORY g/dL 4:31 PM CDT Alkaline 206 (H) 40 - 150 07/06/2021 UR LABORATORY Phosphatase U/L 4:31 PM CDT AST 73 (H) 0 - 45 U/L 07/06/2021 UR LABORATORY 4:31 PM CDT ALT 39 0 - 50 U/L 07/06/2021 UR LABORATORY 4:31 PM CDT Specimen Anatomical Collection Method / Collection Time Recei isak Time (Source) Location / Volume Laterality Blood STRUCTURE OF RIGHT Venipuncture / 07/06/2021 3:34 05/2 4:06 UPPER LIMB / Unknown PM CDT PM CDT Unknown Rossana Odell [facility] LAB - BLOOD ORDERABLES Performing Organization Address City/State/ZIP Code Phon e Number UR LABORATORY [facility] [place] [address] Care Lab [address] [facility], Room [address] Blood Culture Arm, Right (07/06/2021 3:34 PM CDT) P athologist Signature Culture No Growth 07/11/2021 UU IDD 5:03 PM CDT LABORATORY Specimen Anatomical Collection Method / Collection Time Recei isak Time (Source) Location / Volume Laterality Blood STRUCTURE OF RIGHT Venipuncture / 07/06/2021 3:34 05/2 4:04 UPPER LIMB / Unknown PM CDT PM CDT Unknown Jah Thompson MD LAB - MICRO GENERAL ORDERABL ES Performing Organization Address City/State/ZIP Code Phon e Number UU IDD LABORATORY [facility] [place] [address] Diag. Lab [address] [facility], [address] Partial thromboplastin time (07/06/2021 3:34 PM CDT) P athologist Signature aPTT 36 22 - 38 07/06/2021 UR LABORATORY Seconds 4:23 PM CDT Specimen Anatomical Collection Method / Collection Time Recei isak Time (Source) Location / Volume Laterality Blood STRUCTURE OF RIGHT Venipuncture / 07/06/2021 3:34 05/2 4:06 UPPER LIMB / Unknown PM CDT PM CDT Unknown Jah Thompson MD LAB - BLOOD ORDERABLES Performing Organization Address City/[facility] [place] [phone] [facility], Room M309 (ABNORMAL) INR (07/06/2021 3:34 PM CDT) P athologist Signature INR 1.39 (H) 0.85 - 1.15 07/06/2021 UR LABORATORY 4:23 PM CDT Comment: Some International Normalized R atio (INR) results performed at the [facility] for patients 6 month s and older reported between 08/27/2020 and 07/03/2021 were evaluated against an outd ated reference interval of 0.86-1.14 rather than the intended reference interval of 0.85-1.15. The INR value itself was accurate, but may not have been flagged correctly due to the outdated reference interval. Specimen Anatomical Collection Method / Collection Time Recei isak Time (Source) Location / Volume Laterality Blood STRUCTURE OF RIGHT Venipuncture / 07/06/2021 3:34 05/2 4:06 UPPER LIMB / Unknown PM CDT PM CDT Unknown Jah Thomposn MD LAB - BLOOD ORDERABLES Performing Organization Address City/[facility]/ZIP Code [place] [address] Care [address] [place] [address], Room [address]309 (ABNORMAL) Erythrocyte sedimentation rate auto (07/06/2021 3:34 PM CDT) [facility] [employer] Method Time Signature Erythrocyte 97 (H) 0 - 20 07/06/2021 UR LABORATORY Sedimentation Rate mm/hr 4:35 PM CDT Specimen Anatomical Collection Method / Collection Time Recei isak Time (Source) Location / Volume Laterality Blood STRUCTURE OF RIGHT Venipuncture / 07/06/2021 3:34 05/2 4:06 UPPER LIMB / Unknown PM CDT PM CDT Unknown Jah Thompson MD LAB - BLOOD ORDERABLES Performing Organization Address City/State/ZIP Code [place] [address] Care Lab [address] [place] [address], Room [address]309 (ABNORMAL) CRP inflammation (07/06/2021 3:34 PM CDT) [facility] [employer] Method Time Signature CRP Inflammation 65.0 (H) 0.0 - 8.0 07/06/2021 UR LABORATOR Y mg/L 4:31 PM CDT Specimen Anatomical Collection Method / Collection Time Recei isak Time (Source) Location / Volume Laterality Blood STRUCTURE OF RIGHT Venipuncture / 07/06/2021 3:34 05/2 4:06 UPPER LIMB / Unknown PM CDT PM CDT Unknown Jah Thompson MD LAB - BLOOD ORDERABLES Performing Organization Address City/State/ZIP Code [place] [address] Care Lab [address] [place] [address], Room [address]309 (ABNORMAL) Basic metabolic panel (07/06/2021 3:34 PM CDT) [facility] [employer] Method Time Signature Sodium 136 133 - 144 07/06/2021 UR LABORATORY mmol/L 4:29 PM CDT Potassium 3.9 3.4 - 5.3 07/06/2021 UR LABORATORY mmol/L 4:29 PM CDT Chloride 104 94 - 109 07/06/2021 [facility] mmol/L 4:29 PM CDT Carbon Dioxide 28 20 - 32 07/06/2021 [facility] (CO2) mmol/L 4:29 PM CDT Anion Gap 4 3 - 14 07/06/2021 [facility] mmol/L 4:29 PM CDT Urea Nitrogen 7 7 - 30 07/06/2021 [facility] mg/dL 4:29 PM CDT Creatinine 0.46 (L) 0.52 - 07/06/2021 [facility] 1.04 mg/dL 4:29 PM CDT Calcium 8.7 8.5 - 10.1 07/06/2021 [facility] mg/dL 4:29 PM CDT Glucose 133 (H) 70 - 99 07/06/2021 [facility] mg/dL 4:29 PM CDT GFR Estimate >90 >60 07/06/2021 [facility] mL/min/1.7 4:29 PM CDT 3m2 Comment: Effective February 06, 2021 eGF Rcr in adults is calculated using the 2020 CKD-EPI creatinine equation which includ es age and gender (Paul et al., [place], DOI: 10.1056/DRKTzf2862889) Specimen Anatomical Collection Method / Collection Time Recei isak Time (Source) Location / Volume Laterality Blood STRUCTURE OF RIGHT Venipuncture / 07/06/2021 3:34 05/2 4:06 UPPER LIMB / Unknown PM CDT PM CDT Unknown Jah Thompson MD LAB - BLOOD ORDERABLES Performing Organization Address City/State/ZIP Code Ph[place] [address] [facility], Room M309 (ABNORMAL) CBC with platelets (07/06/2021 3:34 PM CDT) [facility] gist Method Time Signature WBC Count 5.7 4.0 - 11.0 07/06/2021 [facility] 10e3/uL 4:10 PM CDT RBC Count 3.31 (L) 3.80 - 07/06/2021 [facility] 5.20 4:10 PM CDT 10e6/uL Hemoglobin 10.4 (L) 11.7 - 07/06/2021 [facility] 15.7 g/dL 4:10 PM CDT Hematocrit 32.4 (L) 35.0 - 07/06/2021 [facility] 47.0 % 4:10 PM CDT MCV 98 78 - 100 07/06/2021 [facility] fL 4:10 PM CDT MCH 31.4 26.5 - 07/06/2021 [facility] 33.0 pg 4:10 PM CDT MCHC 32.1 31.5 - 07/06/2021 [facility] 36.5 g/dL 4:10 PM CDT RDW 14.4 10.0 - 07/06/2021 [facility] 15.0 % 4:10 PM CDT Platelet Count 243 150 - 450 07/06/2021 [facility] 10e3/uL 4:10 PM CDT Specimen Anatomical Collection Method / Collection Time Recei isak Time (Source) Location / Volume Laterality Blood STRUCTURE OF RIGHT Venipuncture / 07/06/2021 3:34 / 4:06 UPPER LIMB / Unknown PM CDT PM CDT Unknown Jah Thompson MD LAB - BLOOD ORDERABLES Performing Organization Address City/State/ZIP Code [place] [address] [facility], Room [address]309 documented in this encounter Visit Diagnoses Diagnosis Osteomyelitis of right ankle, unspecifie d type (H) - Primary Anxiety Anxiety state, unspecified Alcohol use disorder, severe, dependence (H) Irritant dermatitis Contact dermatitis and other eczema, due to unspecified cause documented in this encounter Admitting Diagnoses Diagnosis Osteomyelitis of right ankle, unspecifie d type (H) documented in this encounter Administered Medications Inactive Administered Medications - up to 3 most recent administrations Medication Order MAR Action Action Date Dose Rate Site acetaminophen (TYLENOL) tablet 975 Given 07/23/2021 2:01 PM CDT 975 mg mg 975 mg, Oral, 3 TIMES DAILY, First dose on Fri07/06/21 at 1430, Alternate ibuprofen (if ordered) with acetaminophen. Maximum acetaminophen dose from all sources = 75 mg/kg/day not to exceed 4 grams/day. Given 07/23/2021 8:07 AM CDT 975 mg Given 07/22/2021 7:29 PM CDT 975 mg acetaminophen (TYLENOL) tablet 975 mg Given 07/07/2021 7:31 AM CDT 975 mg 975 mg, Oral, ONCE, On 07/07/21 at 0730, For 1 dose, Maximum acetaminophen dose from all sources = 75 mg/kg/day not to exceed 4 grams/day., Pre-procedure alteplase (CATHFLO ACTIVASE) injection 2 mg Given 07/22/2021 11:00 AM CDT 2 mg 2 mg, Intravenous, EVERY 2 HOURS, First dose on 07/22/21 at 1030, For 2 doses, For Central Venous Catheter Use 10 mL syringe to draw up 2 ML and instill into clotted catheter & allow to dwell for 30 mins, then DRAW BACK and discard contents to assess catheter function. If still occluded, allow mixture to dwell for an additional 90 mins, then DRAW BACK and discard contents to reassess catheter function. May repeat dose once if occlusion persists. Contact provider if 2nd dose is unsuccessful. Only use a 10 ml syringe to administer the solution into each lumen. For catheters with lumen volumes greater than the volume dispensed, request additional syringe(s) from pharmacy. To prevent inadvertent embolization of thrombus from the catheter, ALWAYS WITHDRAW alteplase (ACTIVASE) at the end of the dwell time before administering any solution through the catheter. aspirin EC tablet 162 mg Given 07/23/2021 8:07 AM CDT 162 mg 162 mg, Oral, DAILY, First dose on Fri07/08/21 at 0800, DO NOT CRUSH. Given 07/22/2021 8:29 AM CDT 162 mg Given 07/21/2021 8:22 AM CDT 162 mg buprenorphine (SUBUTEX) sublingual table t 4 mg Given 07/16/2021 12:03 PM CDT 4 mg 4 mg, Sublingual, EVERY 4 HOURS, First dose (after last modification) on Fri07/06/21 at 1630, Give SUBLINGUAL. Place under the tongue and leave until completely dissolved. Patient should not swallow or chew tablet. Patient should not eat/drink until tablet is completely dissolved. Given 07/16/2021 8:51 AM CDT 4 mg Given 07/16/2021 3:51 AM CDT 4 mg buprenorphine (SUBUTEX) sublingual table t 4 mg Given 07/19/2021 6:13 AM CDT 4 mg 4 mg, Sublingual, EVERY 6 HOURS, First dose (after last modification) on Fri07/16/21 at 1830, Give SUBLINGUAL. Place under the tongue and leave until completely dissolved. Patient should not swallow or chew tablet. Patient should not eat/drink until tablet is completely dissolved. Given 07/19/2021 12:22 AM CDT 4 mg Given 07/18/2021 6:31 PM CDT 4 mg buprenorphine (SUBUTEX) sublingual table t 8 mg Given 07/23/2021 2:01 PM CDT 8 mg 8 mg, Sublingual, 3 TIMES DAILY, First dose (after last modification) on Zoe 07/19/21 at 1400, 2pm, 10 pm. 6 am Give SUBLINGUAL. Place under the tongue and leave until completely dissolved. Patient should not swallow or chew tablet. Patient should not eat/drink until tablet is completely dissolved. Given 07/23/2021 6:47 AM CDT 8 mg Given 07/22/2021 10:41 PM CDT 8 mg ceFAZolin (ANCEF) 2 g in D5W 100 mL New Bag 07/09/2021 4:16 PM CDT 2 g 200 mL/hr intermittent infusion Routine, 2 g, Intravenous, EVERY 8 HOURS, First dose on Fri07/09/21 at 1630, For 1 dose, Indications: Bacteremia ceFAZolin (ANCEF) intermittent New Bag 07/09/2021 8:37 AM CDT 2 g 200 mL/hr infusion 2 g in 100 mL dextrose PRE-MIX STAT, 2 g, Intravenous, EVERY 8 HOURS, First dose on Fri07/06/21 at 1530, Indications: Bacteremia New Bag 07/09/2021 12:33 AM CDT 2 g 200 mL/hr New Bag 07/08/2021 4:06 PM CDT 2 g 200 mL/hr ceFAZolin (ANCEF) intermittent New Bag 07/12/2021 12:02 AM CDT 2 g 200 mL/hr infusion 2 g in 100 mL dextrose PRE-MIX Routine, 2 g, Intravenous, EVERY 8 HOURS, First dose on Fri07/10/21 at 0030, Indications: Bacteremia New Bag 07/11/2021 4:10 PM CDT 2 g 200 mL/hr New Bag 07/11/2021 9:15 AM CDT 2 g 200 mL/hr ceFAZolin (ANCEF) intermittent New Bag 07/23/2021 8:19 AM CDT 2 g 200 mL/hr infusion 2 g in 100 mL dextrose PRE-MIX Routine, 2 g, Intravenous, EVERY 8 HOURS, First dose on Fri07/18/21 at 1600, Indications: Bone and/or Joint Infection New Bag 07/23/2021 12:51 AM CDT 2 g 200 mL/hr New Bag 07/22/2021 3:53 PM CDT 2 g 200 mL/hr clobetasol (TEMOVATE) 0.05 % ointment Given 07/23/2021 8:10 AM CDT Topical, 2 TIMES DAILY, First dose on Fri07/17/21 at 2000, Apply to arm rash Given 07/22/2021 7:33 PM CDT Given 07/22/2021 8:38 AM CDT diphenhydrAMINE (BENADRYL) capsule 25 mg Given 07/17/2021 2:34 AM CDT 25 mg 25 mg, Oral, EVERY 6 HOURS PRN, itching, Starting on Fri07/16/21 at 0941 Given 07/16/2021 7:07 PM CDT 25 mg famotidine (PEPCID) tablet 20 mg Given 07/23/2021 8:07 AM CDT 20 mg 20 mg, Oral, 2 TIMES DAILY, First dose on Fri07/06/21 at 2000 Given 07/22/2021 7:29 PM CDT 20 mg Given 07/22/2021 8:30 AM CDT 20 mg fentaNYL (PF) (SUBLIMAZE) injection 25 m cg Given 07/07/2021 9:58 AM CDT 25 mcg 25 mcg, Intravenous, EVERY 5 MIN PRN, moderate to severe pain, Starting on 07/07/21 at 0909, Administer fentaNYL (SUBLIMAZE) for acute pain control. Move to HYDROmorphone (DILAUDID): - IF patient has received up to 4 doses (100 mcg) of fentaNYL (SUBLIMAZE), OR - IF severe pain (pain score greater than or equal to seven (7) or inability of patient to participate in post op recovery due to pain) AFTER 2 doses fentaNYL (SUBLIMAZE). WAIT 5 minutes AFTER last fentaNYL (SUBLIMAZE) dose before administering HYDROmorphone (DILAUDID). Postop Anesthesia Phase I only. Notify Provider to assess for uncontrolled pain or analgesic side effects. Do NOT revert back to fentanyl (SUBLIMAZE) after moving to HYDROmorphone (DILAUDID)., PACU Given 07/07/2021 9:51 AM CDT 25 mcg Given 07/07/2021 9:45 AM CDT 25 mcg fexofenadine (SRAVANTHI) tablet 180 mg Given 07/22/2021 7:29 PM CDT 180 mg 180 mg, Oral, DAILY, First dose (after last modification) on Fri07/18/21 at 2000 Given 07/21/2021 8:01 PM CDT 180 mg Given 07/20/2021 9:56 PM CDT 180 mg fexofenadine (SRAVANTHI) tablet 60 mg Given 07/17/2021 8:35 AM CDT 60 mg 60 mg, Oral, 2 TIMES DAILY, First dose on Fri07/16/21 at 2000 Given 07/16/2021 9:50 PM CDT 60 mg folic acid (FOLVITE) tablet 1 mg Given 07/23/2021 8:07 AM CDT 1 mg 1 mg, Oral, DAILY, First dose on Fri07/06/21 at 1600 Given 07/22/2021 8:30 AM CDT 1 mg Given 07/21/2021 8:22 AM CDT 1 mg gabapentin (NEURONTIN) capsule 100 mg Given 07/19/2021 9:11 AM CDT 100 mg 100 mg, Oral, 3 TIMES DAILY, First dose (after last modification) on Fri07/15/21 at 1400 Given 07/18/2021 9:12 PM CDT 100 mg Given 07/18/2021 1:52 PM CDT 100 mg gabapentin (NEURONTIN) capsule 200 mg Given 07/15/2021 8:18 AM CDT 200 mg 200 mg, Oral, 3 TIMES DAILY, First dose (after last modification) on Fri07/14/21 at 1400 Given 07/14/2021 8:10 PM CDT 200 mg Given 07/14/2021 1:58 PM CDT 200 mg gabapentin (NEURONTIN) capsule 300 mg Given 07/07/2021 9:33 PM CDT 300 mg 300 mg, Oral, AT BEDTIME, First dose on Fri07/06/21 at 2200 Given 07/06/2021 10:47 PM CDT 300 mg gabapentin (NEURONTIN) capsule 300 mg Given 07/14/2021 8:36 AM CDT 300 mg 300 mg, Oral, 3 TIMES DAILY, First dose (after last modification) on 07/08/21 at 1030 Given 07/13/2021 8:48 PM CDT 300 mg Given 07/13/2021 3:23 PM CDT 300 mg gabapentin (NEURONTIN) capsule 300 mg Given 07/22/2021 10:42 PM CDT 300 mg 300 mg, Oral, AT BEDTIME, First dose (after last modification) on Zoe 07/19/21 at 2200 Given 07/21/2021 9:47 PM CDT 300 mg Given 07/20/2021 9:55 PM CDT 300 mg hydrocortisone (CORTAID) 1 % cream Given 07/17/2021 8:38 AM CDT Topical, 2 TIMES DAILY, First dose on 07/16/21 at 1000, Apply to affected area Given 07/16/2021 10:39 AM CDT HYDROmorphone (PF) (DILAUDID) injection 0.2 Given 06/18 10:17 AM CDT 0.5 mg mg 0.2 mg, Intravenous, EVERY 5 MIN PRN, moderate to severe pain, Starting on 07/07/21 at 0909, Administer HYDROmorphone (DILAUDID) up to a total of 5 doses (1 mg) for moderate to severe pain. Notify Provider to assess for uncontrolled pain or analgesic side effects., PACU Given 07/07/2021 10:11 AM CDT 0.5 mg Given 07/07/2021 10:06 AM CDT 0.5 mg hydrOXYzine (ATARAX) tablet 25 mg Given 07/15/2021 8:27 PM CDT 25 mg 25 mg, Oral, EVERY 6 HOURS PRN, other, anxiety, adjuvant pain, Starting on 07/08/21 at 1019 Given 07/13/2021 6:05 AM CDT 25 mg Given 07/12/2021 11:57 AM CDT 25 mg hydrOXYzine (ATARAX) tablet 25 mg Given 07/21/2021 9:47 PM CDT 25 mg 25 mg, Oral, AT BEDTIME, First dose on 07/16/21 at 2200 Given 07/20/2021 9:55 PM CDT 25 mg Given 07/19/2021 10:18 PM CDT 25 mg hydrOXYzine (ATARAX) tablet 25-50 mg Given 07/22/2021 7:51 PM CDT 50 mg 25-50 mg, Oral, EVERY 6 HOURS PRN, other, anxiety, itching, adjuvant pain, Starting on Fri07/17/21 at 1531 Given 07/22/2021 1:00 PM CDT 50 mg Given 07/21/2021 3:04 PM CDT 50 mg ketorolac (TORADOL) injection 15 mg Given 07/07/2021 9:41 AM CDT 15 mg 15 mg, Intravenous, EVERY 6 HOURS PRN, moderate to severe pain, Starting on 07/07/21 at 0909, For 5 days, IF celecoxib (celeBREX) was given pre-operatively, start ketorolac (TORADOL) 12 hours after celecoxib (celeBREX) given. Can cause pain on injection. If ordered intravenously (IV) : administer through a running maintenance fluid over 1 minute followed by a flush. If patient complains of pain on injection, may dilute 15-30 mg in 5 mL and push over 1 to 2 minutes. , PACU/Phase II lactated ringers infusion Rate/Dose Verify 07/07/2021 10:20 AM CDT 100 mL/hr at 100 mL/hr, Intravenous, CONTINUOUS, Continue until IV catheter is weaned, PACU/Phase II, Starting on 07/07/21 at 0930, Until 07/07/21 at 1125 lactulose (CHRONULAC) solution 20 g Given 07/15/2021 8:18 AM CDT 20 g 20 g, Oral, DAILY, First dose (after last modification) on 07/07/21 at 0800 Given 07/14/2021 8:36 AM CDT 20 g Given 07/13/2021 8:30 AM CDT 20 g lactulose (CHRONULAC) solution 20 g Given 07/23/2021 8:07 AM CDT 20 g 20 g, Oral, 2 TIMES DAILY, First dose (after last modification) on 07/15/21 at 2000 Given 07/22/2021 10:42 PM CDT 20 g Given 07/22/2021 8:31 AM CDT 20 g levothyroxine (SYNTHROID/LEVOTHROID) tablet Given 07/2021 6:47 AM CDT 125 mcg 125 mcg 125 mcg, Oral, EVERY MORNING BEFORE BREAKFAST, First dose on 07/07/21 at 0730, Separate oral administration of iron- or calcium-containing products and levothyroxine by at least 4 hours. Given 07/22/2021 8:30 AM CDT 125 mcg Given 07/21/2021 8:21 AM CDT 125 mcg lidocaine (XYLOCAINE) 4 % solution 10 mL Given 07/18/2021 12:22 PM CDT 10 mLs 10 mL, Topical, ONCE, On Fri07/17/21 at 1000, For 1 dose, For wound vac nurse lidocaine (XYLOCAINE) 4 % solution 50 mL Given 07/23/2021 1:26 PM CDT 50 mLs 50 mL, Topical, DAILY PRN, moderate pain (4-6), Starting on Fri07/20/21 at 0758, Apply to wound Given 07/20/2021 9:30 AM CDT 50 mLs LORazepam (ATIVAN) injection 0.5-1 mg Given 07/07/2021 9:52 AM CDT 1 mg 0.5-1 mg, Intravenous, ONCE PRN, muscle spasms, Starting on 07/07/21 at 0909, For 1 dose, Give push at max of 2 mg/min This drug may cause significant respiratory depression. Monitor respiratory status and vital signs carefully for 1 hour after each dose., PACU melatonin tablet 5 mg Given 07/23/2021 2:21 AM CDT 5 mg 5 mg, Oral, AT BEDTIME PRN, sleep, Starting on Fri07/23/21 at 0136 methocarbamol (ROBAXIN) tablet 750 mg Given 07/14/2021 8:37 AM CDT 750 mg 750 mg, Oral, 3 TIMES DAILY, First dose on Fri07/06/21 at 1430 Given 07/13/2021 8:48 PM CDT 750 mg Given 07/13/2021 3:23 PM CDT 750 mg methocarbamol (ROBAXIN) tablet 750 mg Given 07/19/2021 6:18 AM CDT 750 mg 750 mg, Oral, 3 TIMES DAILY PRN, muscle spasms, Starting on 07/14/21 at 1030 Given 07/18/2021 10:47 PM CDT 750 mg Given 07/18/2021 6:34 PM CDT 750 mg methocarbamol (ROBAXIN) tablet 750 mg Given 07/23/2021 2:01 PM CDT 750 mg 750 mg, Oral, 3 TIMES DAILY, First dose (after last modification) on Fri07/19/21 at 1400 Given 07/23/2021 8:07 AM CDT 750 mg Given 07/22/2021 7:29 PM CDT 750 mg mineral oil-hydrophilic petrolatum (AQUA PHOR) Topical, EVERY 1 HOUR PRN, dry skin, irr itation, Starting on Fri07/17/21 at 1531, Apply to all areas nicotine (NICODERM CQ) Patch/Med Applied 07/23/2021 8:11 AM 1 patch Left Shoulder 14 MG/24HR 24 hr patch CDT 1 patch 1 patch, Transdermal, DAILY, Administer over 24 Hours, First dose on Fri07/18/21 at 1400, Reminder: Remove previous patch before applying new patch. Patch/Med Applied 07/22/2021 8:34 AM CDT 1 patch Right Shoulder Patch/Med Applied 07/21/2021 8:26 AM CDT 1 patch Left Shoulder nicotine Patch in Place First dose on Fri07/18/21 at 1400, Chart every shift, confirming that patch is still in place on patient (no barcode scan nee ded). See patch order for dose information. ondansetron (ZOFRAN ODT) ODT tab 4 mg Given 07/21/2021 9:51 PM CDT 4 mg 4 mg, Oral, EVERY 6 HOURS PRN, nausea, vomiting, Starting on Fri07/06/21 at 1400, This is Step 1 of nausea and vomiting management. If nausea not resolved in 15 minutes, go to Step 2 prochlorperazine (COMPAZINE). With dry hands, peel back foil backing and gently remove tablet. Do not push oral disintegrating tablet through foil backing. Administer immediately on tongue and oral disintegrating tablet dissolves in seconds, then swallow with saliva. Liquid not required. Given 07/19/2021 9:55 AM CDT 4 mg Given 07/18/2021 3:27 AM CDT 4 mg ondansetron (ZOFRAN) injection 4 mg 4 mg, Intravenous, EVERY 6 HOURS PRN, nausea, vomiting , Administer over 2-5 Minutes, Starting on Fri07/06/21 at 1400 , Give IF patient unable to tolerate oral medication. This is Step 1 of nausea and vomiting ann gement. If nausea not resolved in 15 minutes, go to Step 2 prochlorperazine (COMPAZINE). Irritant. oxyCODONE (ROXICODONE) tablet 5-10 mg Given 07/14/2021 8:37 AM CDT 5 mg 5-10 mg, Oral, EVERY 3 HOURS PRN, moderate to severe pain, Starting on Fri07/06/21 at 1400, Start with lower dose. May increase to 10 mg as needed. Notify provider to assess for uncontrolled pain or analgesic side effects. Hold while on CLOCK REPAIRER or with regular IV opioid dosing. Given 07/14/2021 3:49 AM CDT 10 mg Given 07/14/2021 12:03 AM CDT 5 mg oxyCODONE (ROXICODONE) tablet 5-10 mg Given 07/15/2021 5:11 AM CDT 5 mg 5-10 mg, Oral, EVERY 4 HOURS PRN, moderate to severe pain, Starting on 07/14/21 at 1030, Start with lower dose. May increase to 10 mg as needed. Notify provider to assess for uncontrolled pain or analgesic side effects. Hold while on CLOCK REPAIRER or with regular IV opioid dosing. Given 07/15/2021 12:12 AM CDT 5 mg Given 07/14/2021 8:10 PM CDT 5 mg oxyCODONE (ROXICODONE) tablet 5-10 mg Given 07/23/2021 2:01 PM CDT 10 mg 5-10 mg, Oral, EVERY 6 HOURS PRN, moderate to severe pain, Starting on 07/15/21 at 1233, Start with lower dose. May increase to 10 mg as needed. Notify provider to assess for uncontrolled pain or analgesic side effects. Hold while on CLOCK REPAIRER or with regular IV opioid dosing. Given 07/23/2021 8:18 AM CDT 10 mg Given 07/22/2021 10:41 PM CDT 10 mg oxyCODONE IR (ROXICODONE) tablet 10 mg Given 07/07/2021 10:31 AM CDT 10 mg 10 mg, Oral, EVERY 4 HOURS PRN, moderate to severe pain, Starting on 07/07/21 at 0941, Max: 5 mg for opioid-na??ve patient., PACU/Phase II piperacillin-tazobactam (ZOSYN) 4.5 g vial New Bag 07/18/2021 9:05 AM CDT 4.5 g to attach to NS 100 mL bag [place], 4.5 g, Intravenous, EVERY 6 HOURS, First dose on Zoe 07/12/21 at 0900, Lactated Ringer's solution is not compatible with piperacillin-tazobactam for injection. , Indications: Bone and/or Joint Infection, Osteomyelitis, Skin and Soft Tissue Infection, persistent fever New Bag 07/18/2021 3:27 AM CDT 4.5 g New Bag 07/17/2021 9:53 PM CDT 4.5 g polyethylene glycol (MIRALAX) Packet 17 g 17 g, Oral, DAILY PRN, constipation, Sta rting on Fri07/06/21 at 1400, Indications: Constipation, Give in 8 ounces of water, juice, or soda. Hold for loose stools. 1 Packet = 17 grams. Mix each gram with at least 1/2 oun ce (15 mL) of water - 8 ounces for 17 g dose, 4 ounces for 8.5 g dose, 2 ounces for 4 g dose. Follow with the same volume of water. Hold for loose stools unless being administered as part of a bowel prep regimen or bowel clean out. polyethylene glycol (MIRALAX) Packet 17 g Given 07/21/2021 8:20 AM CDT 17 g 17 g, Oral, DAILY, First dose (after last reorder) on Fri07/08/21 at 1030, Indications: Constipation, Give in 8 ounces of water, juice, or soda. Hold for loose stools. 1 Packet = 17 grams. Mix each gram with at least 1/2 ounce (15 mL) of water - 8 ounces for 17 g dose, 4 ounces for 8.5 g dose, 2 ounces for 4 g dose. Follow with the same volume of water. Hold for loose stools unless being administered as part of a bowel prep regimen or bowel clean out. Given 07/14/2021 8:35 AM CDT 17 g Given 07/13/2021 8:27 AM CDT 17 g senna-docusate (SENOKOT-S/PERICOLACE) Given 07/08/2021 8:20 AM C DT 2 tablets 8.6-50 MG per tablet 1-2 tablet 1-2 tablet, Oral, 2 TIMES DAILY, First dose on Fri07/06/21 at 2000, Start with 1 tablet po BID. If no bowel movement in 24 hours, increase to 2 tablets po BID. Hold for loose stools. Hold for loose stools. Given 07/07/2021 7:36 PM CDT 1 tablet Given 07/06/2021 7:58 PM CDT 1 tablet senna-docusate (SENOKOT-S/PERICOLACE) Given 07/22/2021 7:29 PM C DT 2 tablets 8.6-50 MG per tablet 2 tablet 2 tablet, Oral, 2 TIMES DAILY, First dose (after last modification) on Fri07/08/21 at 2000, Start with 1 tablet po BID. If no bowel movement in 24 hours, increase to 2 tablets po BID. Hold for loose stools. Hold for loose stools. Given 07/22/2021 8:29 AM CDT 2 tablets Given 07/21/2021 8:01 PM CDT 2 tablets sodium chloride (PF) 0.9% PF flush 10-20 mL Given 07/21/2021 3:10 PM CDT 20 mLs 10-20 mL, Intracatheter, EVERY 1 MIN PRN, line flush, Starting on Fri07/06/21 at 1722, Flush catheter with 10 mL sodium chloride 0.9% to ensure patency or after IV medications/TPN to clear the catheter. Flush catheter with 20 mL sodium chloride 0.9% after blood draws or blood administration from the catheter. Given 07/12/2021 9:03 AM CDT 20 mLs Given 07/09/2021 12:13 PM CDT 30 mLs sodium chloride (PF) 0.9% PF flush 10-40 mL 10-40 mL, Intracatheter, EVERY 7 DAYS, F irst dose on Fri07/06/21 at 1730, To lock each CVC - Valved (Tunneled and Non-Tunn eled) dormant lumen(s). Max dose: 10 mL for each lumen Sodium chloride 0.9% 10 mL for each lumen t o flush line and lock the lumen. sodium chloride (PF) 0.9% PF flush 10-40 mL 10-40 mL, Intracatheter, EVERY 1 HOUR PRN, other, to l ock EACH CVC - Valved (Tunneled and Non-Tunneled) dormant lume n(s), Starting on Fri07/06/21 at 1722, Max dose: 10 mL for each lumen Sodium chlori de 0.9% 10 mL for each lumen to flush line and lock the lumen. sodium chloride 0.9 % infusion New Bag 07/14/2021 10:53 PM CDT 500 mLs 20 mL/hr Mik Yusuf: cabinet override, 1 dose, Starting on 07/14/21 at 2248, Until 07/14/21 at 2253 sodium chloride 0.9 % infusion New Bag 07/16/2021 12:04 PM CDT Bryant Lazo: cabinet override, 1 dose, Starting on Fri07/16/21 at 1153, Until Fri07/16/21 at 1204 sodium chloride 0.9% (bottle) Given 07/07/2021 9:45 AM CDT 3,000 mLs Right Ankle irrigation PRN, Starting on Fri07/07/21 at 0945, Intra-procedure thiamine (B-1) tablet 100 mg Given 07/23/2021 8:07 AM CDT 100 mg 100 mg, Oral, DAILY, First dose on Fri07/07/21 at 0800 Given 07/22/2021 8:29 AM CDT 100 mg Given 07/21/2021 8:27 AM CDT 100 mg triamcinolone (KENALOG) 0.1 % ointment Given 07/22/2021 8:39 AM CDT Topical, 2 TIMES DAILY, First dose on Fri07/17/21 at 2000, Apply to other rash areas Given 07/21/2021 8:32 AM CDT Given 07/20/2021 9:59 PM CDT vancomycin (VANCOCIN) 1,500 mg in sodium New Bag 022 12:42 PM CDT 1,500 mg chloride 0.9 % 250 mL intermittent infusion [place], 1,500 mg, Intravenous, EVERY 12 HOURS, First dose on Fri07/11/21 at 1030, Vesicant. Infuse doses less than 1,250 mg over 1 hour. Infuse doses between 1,250 mg and less than 1,750 mg over 90 minutes. Infuse doses 1,750 mg and above over 2 hours. , Indications: Bone and/or Joint Infection New Bag 07/18/2021 12:04 AM CDT 1,500 mg New Bag 07/17/2021 12:43 PM CDT 1,500 mg venlafaxine (EFFEXOR XR) 24 hr capsule 3 00 mg Given 07/23/2021 8:07 AM CDT 300 mg 300 mg, Oral, DAILY, First dose on Fri07/07/21 at 0800 Given 07/22/2021 8:29 AM CDT 300 mg Given 07/21/2021 8:21 AM CDT 300 mg documented in this encounter Active and Recently Administered Medications Times are shown in CDT. Scheduled Medication Order 07/21/2021 07/22/2021 07/23/2021 acetaminophen (TYLENOL) tablet 975 mg 0821 (Given - Pr ovider: Vin Sims RN)1316 (Given - Provider: Vin Sims RN)2000 (Given - Provider: Alisa Ceja RN) 0829 (Given - Provider: Areli Schwartz RN) 1420 (Given - Provider: Areli Schwartz RN)1929 (Given - Provider: Yani Preciado RN) 0807 (Given - Provider: Andrzej Hodge RN)1401 (Given - Provider: Andrzej Hodge RN) 975 mg, Oral, 3 TIMES DAILY, First dose on Fri07/06/21 at 1430, Alternate ibuprofen (if ordered) with acetaminophen. Maximum acetaminophen dose from all sources = 75 mg/kg/day not to exceed 4 grams/day. alteplase (CATHFLO ACTIVASE) injection 2 mg () 1100 (Given - Provider: Areli Schwartz RN)1234 (Not Given - Provider: Areli Schwartz RN - Reason: Other - Comment: PICC now functioning. Blood return noted) 2 mg, Intravenous, EVERY 2 HOURS, First dose on Fri07/22/21 at 1030, For 2 doses, For Central Venous Catheter Use 10 mL syringe to draw up 2 ML and instill into clotted catheter & allow to dwell for 30 mins, then DRAW BACK and discard cont ents to assess catheter function. If still occluded, allow mixture to dwell for an additional 90 mins, then DRAW BACK and discard contents to reassess catheter fu nction. May repeat dose once if occlusio n persists. Contact provider if 2nd dose is unsuccessful. Only use a 10 ml syringe to administer the solution into each lumen. For catheters with lumen volumes gr eater than the volume dispensed, request additional syringe(s) from pharmacy. To prevent inadvertent embolization of thrombus from the catheter, ALWAYS WITHDRAW alteplase (ACTIVASE) at the end of the dw ell time before administering any solution through the catheter. aspirin EC tablet 162 mg 0822 (Given - Provider: Vin head RN) 0829 (Given - Provider: Areli Schwartz, GENARO) 0807 (Given - Provider: Andrzej Hodge RN) 162 mg, Oral, DAILY, First dose on [place] 07/08/21 at 0800, DO NOT C DANEILS. buprenorphine (SUBUTEX) sublingual tablet 8 mg 0447 (G iven - Provider: Paulino Ybarra RN - Comment: wanted to take now vs 6am because she woke up for pain meds and wants to go back to sleep after)0600 (Canceled Entry - Provider: Paulino Ybarra RN)1316 (Given - Provider: Vin Sims, GENARO) 0611 (Given - Provider: Alisa Ceja RN)1420 (Given - Provider: Areli Schwartz, GENARO)2241 (Given - Provider: Yani Preciado RN) 0647 (Given - Provider: Alisa Ceja RN) 1401 (Given - Provider: Andrzej Hodge, GNEARO) 8 mg, Sublingual, 3 TIMES DAILY, First d ose (after last modification) on [place] 07/19/21 at 1400, 2pm, 10 pm. 6 am Give SUBL[address]UAL. Place under the tongue and leave until completely dissolved. Patient should 2147 (Given - Provider: Alisa Ceja RN) not swallow or chew tablet. Patient quan uld not eat/drink until tablet is completely dissolved. ceFAZolin (ANCEF) intermittent infusion 2 g in 100 mL dextrose PRE-MIX 0046 (New Bag - Provider: Paulino Ybarra RN)0827 (New Bag - Provider: Vin Sims RN)1504 (New Bag - Provider: Vin Sims RN)2351 (New Bag - Provider: Alisa Ceja RN) 0834 (New Bag - Provider: Jay Boswell N)1553 (New Bag - Provider: Yani Preciado, GENARO) 0051 (New Bag - Provider: Paulino Ybarra RN)0819 (New Bag - Provider: Andrzej Hodge, GENARO) Routine, 2 g, Intravenous, EVERY 8 HOURS , First dose on Fri07/18/21 at 1600, Indications: Bone and/or Joint Infection clobetasol (TEMOVATE) 0.05 % ointment 0831 (Given - Pr ovider: Vin Sims RN)2004 (Not Given - Provider: Alisa Ceja RN - Reason: Patient/family refused) 0838 (Given - Provider: Areli Schwartz RN) 193 (Given - Provider: Yani Preciado, GENARO) 0810 (Given - Provider: Andrzej Hodge RN) Topical, 2 TIMES DAILY, First dose on Fri07/17/21 at 1999, Apply to arm rash famotidine (PEPCID) tablet 20 mg 0822 (Given - Provide r: Vin Sims RN)2000 (Given - Provider: Alisa Ceja RN) 08 (Given - Provider: Areli Schwartz RN)1928 (Given - Provider: Yani Preciado RN) 08 (Given - Provider: Andrzej Hodge RN) 20 mg, Oral, 2 TIMES DAILY, First dose on Fri07/06/21 at 1999 fexofenadine (SRAVANTHI) tablet 180 mg 2000 (Given - Provider: Alias Ceja RN) 1928 (Given - Provider: Yani Preciado, GENARO) 180 mg, Oral, DAILY, First dose (after last modificati on) on Fri07/18/21 at 1999 folic acid (FOLVITE) tablet 1 mg 0822 (Given - Provider: Norris Sims RN) 0830 (Given - Provider: Areli Schwartz RN) 0807 (Given - Provider: Andrzej Hodge RN) 1 mg, Oral, DAILY, First dose on Fri07/06/21 at 1600 gabapentin (NEURONTIN) capsule 300 mg 2146 (Given - Provider : Alisa Ceja, GENARO) 2241 (Given - Provider: Yani Preciado, GENARO) 300 mg, Oral, AT BEDTIME, First dose (af ter last modification) on [place] 07/19/21 at 2200 hydrOXYzine (ATARAX) tablet 25 mg 2146 (Given - Provider: David Ceja, GENARO) 2242 (Not Given - Provider: Yani Preciado RN - Reason: Other - Comment: too soon from last dose given) 25 mg, Oral, AT BEDTIME, First dose on 07/16/21 at 2200 lactulose (CHRONULAC) solution 20 g 08 (Not Given - Provider: Vin Sims RN - Reason: Patient/family refused)1958 (Not Given - Provider: Alisa Ceja RN - Reason: Patient/family refused) 830 (Given - Provider: Areli Schwartz RN) 2241 (Given - Provider: Yani Preciado RN) 08 (Given - Provider: Andrzej Hodge RN) 20 g, Oral, 2 TIMES DAILY, First dose (a fter last modification) on 07/15/21 at 2000 levothyroxine (SYNTHROID/LEVOTHROID) tablet 125 mcg 08 (Given - Provider: Vin Sims RN) 0830 (Given - Provider: Areli Schwartz RN) 0647 (Given - Provider: Alisa Ceja RN) 125 mcg, Oral, EVERY MORNING BEFORE VELIA KFAST, First dose on 07/07/21 at 0730, Separate oral administration of iron- or calcium-containing products and levothyroxine by at least 4 hours. methocarbamol (ROBAXIN) tablet 750 mg 08 (Given - Pr ovider: Vin Sims RN)1316 (Given - Provider: Vin Sims, GENARO)2000 (Given - Provider: Alisa Ceja RN) 08 (Given - Provider: Areli Schwartz RN) 142 (Given - Provider: Areli Schwartz RN)192 (Given - Provider: Yani Preciado, GENARO) 08 (Given - Provider: Andrzej Hodge RN)1401 (Given - Provider: Andrzej Hodge RN) 750 mg, Oral, 3 TIMES DAILY, First dose (after last modification) on Fri07/19/21 at 1400 nicotine (NICODERM CQ) 14 MG/24HR 24 hr patch 1 patch 0820 (Patch/Med Removed - Provider: Vin Sims RN)0826 (Patch/Med Applied - Provider: Vin Sims, GENARO) 0833 (Patch/Med Removed - Provider: David Schwartz RN)0834 (Patch/Med Applied - Provider: Areli Schwartz RN) 0810 (Patch/Med Removed - Provider: Mckay Hodge RN)0811 (Patch/Med Applied - Provider: Andrzej Hodge RN)1555 (Due: Patch/Med Removed - Provider: Orders Generic Provider - Comment: Time automatic ally adjusted from order being discontinued) 1 patch, Transdermal, DAILY, Administer over 24 Hours, First dose on Fri07/18/21 at 1400, Reminder: Remove previous patch before applying new patch. nicotine Patch in Place 0741 (Patch in Place - Provi nia: Paulino Ybarra RN)1315 (Patch in Place - Provider: Vin Sims RN)2152 (Patch in Place - Provider: Alisa Ceja RN - Comment: L arm) 0602 (Patch in Place - Provider: Alisa Ceja RN)1423 (Patch in Place - Provider: Areli Schwartz, GENARO)2243 (Patch in Place - Provider: Yani Preciado RN) 0649 (Patch in Place - Provider: Alisa Ceja RN)1402 (Patch in Place - Provider: Andrzej Hodge, GENARO) First dose on Fri07/18/21 at 1400, Chart every shift, confirming that patch is still in place on patient (no barcode scan needed). See patch order for dose information. polyethylene glycol (MIRALAX) Packet 17 g 0820 (Given - Provider: Vin Sims RN) 0837 (Not Given - Provider: Areli Schwartz RN - Reason: Patient/family refused) 0809 (Not Given - Provider: Andrzej lizama RN - Reason: Patient/family refused) 17 g, Oral, DAILY, First dose (after las t reorder) on Fri07/08/21 at 1030, Indications: Constipation, Give in 8 ounces of water, juice, or soda. Hold for loose stools. 1 Packet = 17 grams. Mix each gram with at least 1/2 ounce (15 mL) of wate r - 8 ounces for 17 g dose, 4 ounces for 8.5 g dose, 2 ounces for 4 g dose. Follow with the same volume of water. Hold for loose stools unless being administered as part of a bowel prep regimen or bowel clean out. senna-docusate (SENOKOT-S/PERICOLACE) 8.6-50 MG per ta blet 2 tablet 820 (Given - Provider: Vin Sims, RN)2000 (Given - Provider: Alisa Ceja, GENARO) 08 (Given - Provider: Areli Schwartz, GENARO)1928 (Given - Provider: Yani Preciado RN) 808 (Not Given - Provider: Andrzej lizama RN - Reason: Patient/family refused) 2 tablet, Oral, 2 TIMES DAILY, First dos e (after last modification) on 07/08/21 at 2000, Start with 1 tablet po BID. If no bowel movement in 24 hours, increase to 2 tablets po BID. Hold for loose stools. Hold for loose stools. sodium chloride (PF) 0.9% PF flush 10-40 mL 10-40 mL, Intracatheter, EVERY 7 DAYS, F irst dose on Fri07/06/21 at 1730, To lock each CVC - Valved (Tunneled and Non-Tunneled) dormant lumen(s). Max dose: 10 mL for each lumen Sodium chloride 0.9% 10 m L for each lumen to flush line and lock the lumen. thiamine (B-1) tablet 100 mg 08 (Given - Provider: Vin Sims, GENARO) 08 (Given - Provider: Areli Schwartz RN) 08 (Given - Provider: Andrzej Hodge RN) 100 mg, Oral, DAILY, First dose on Fri07/07/21 at 0800 triamcinolone (KENALOG) 0.1 % ointment 08 (Given - P rovider: Vin Sims RN)2004 (Not Given - Provider: Alisa Ceja RN - Reason: Patient/family refused) 0839 (Given - Provider: Areli Schwartz, RN) 2244 (Not Given - Provider: Yani Preciado RN - Reason: Patient/family refused) 0824 (Not Given - Provider: Andrzej Hodge, GENARO - Reason: Medication not available) Topical, 2 TIMES DAILY, First dose on 07/17/21 at 2000, Apply to other rash areas venlafaxine (EFFEXOR XR) 24 hr capsule 300 mg 0821 (Gi alex - Provider: Vin Sims, RN) 0829 (Given - Provider: Areli Schwartz RN) 0807 (Given - Provider: Andrzej Hodge, GENARO) 300 mg, Oral, DAILY, First dose on Fri07/07/21 at 0800 PRN Medication Order 07/21/2021 07/22/2021 07/23/2021 diphenhydrAMINE (BENADRYL) capsule 25 mg 25 mg, Oral, EVERY 6 HOURS PRN, itching, Starting on Fri07/16/21 at 0941 hydrOXYzine (ATARAX) tablet 25-50 mg 0821 (Given - Pro vider: Vin Sims RN)1504 (Given - Provider: Vin Sims RN) 1300 (Given - Provider: Areli Schwartz RN)1951 (Given - Provider: Yani Preciado RN) 25-50 mg, Oral, EVERY 6 HOURS PRN, other , anxiety, itching, adjuvant pain, Starting on Fri07/17/21 at 1531 lidocaine (XYLOCAINE) 4 % solution 50 mL 1326 (Given - Provider: Lisa Chandler RN) 50 mL, Topical, DAILY PRN, moderate pain , Starting on Fri07/20/21 at 0758, Apply to wound melatonin tablet 5 mg 0221 (Give n - Provider: Alisa Ceja RN) 5 mg, Oral, AT BEDTIME PRN, sleep, Starting on Fri07/23/21 at 013 6 mineral oil-hydrophilic petrolatum (AQUAPHOR) Topical, EVERY 1 HOUR PRN, dry skin, irr itation, Starting on Fri07/17/21 at 1531, Apply to all areas ondansetron (ZOFRAN ODT) ODT tab 4 mg(Linked Group 1) 2151 (Given - Provider: Alisa Ceja, GENARO) 4 mg, Oral, EVERY 6 HOURS PRN, nausea, v omiting, Starting on Fri07/06/21 at 1400, This is Step 1 of nausea and vomiting management. If nausea not resolved in 15 minutes, go to Step 2 prochlorperazine (C OMPAZINE). With dry hands, peel back foi l backing and gently remove tablet. Do not push oral disintegrating tablet through foil backing. Administer immediately on tongue and oral disintegrating tablet d issolves in seconds, then swallow with saliva. Liquid not requir ed. ondansetron (ZOFRAN) injection 4 mg(Linked Group 1) 21 51 (See Alternative - Provider: Alisa Ceja RN) 4 mg, Intravenous, EVERY 6 HOURS PRN, na usea, vomiting, Administer over 2-5 Minutes, Starting on Fri07/06/21 at 1400, Give IF patient unable to tolerate oral medication. This is Step 1 of nausea and vom iting management. If nausea not resolved in 15 minutes, go to Step 2 prochlorperazine (COMPAZINE). Irritant. oxyCODONE (ROXICODONE) tablet 5-10 mg 0448 (Given - Pr ovider: Paulino Ybarra RN)1045 (Given - Provider: Vin Sims RN)1503 (Canceled Entry - Provider: Vin Sims, GENARO)1649 (Given - Provider: Vin Sims, RN)2351 (Given - Provider: Alisa Ceja RN) 0842 (Given - Provider: Areli Schwartz RN) 1635 (Given - Provider: Yani Preciado, GENARO)2241 (Given - Provider: Yani Preciado, GENARO) 0818 (Given - Provider: Andrzej Hodge, GENARO)1401 (Given - Provider: Andrzej Hodge RN) 5-10 mg, Oral, EVERY 6 HOURS PRN, modera te to severe pain, Starting on 07/15/21 at 1233, Start with lower dose. May increase to 10 mg as needed. Notify provider to assess for uncontrolled pain or leora lgesic side effects. Hold while on CLOCK REPAIRER or with regular IV opioid dosing. polyethylene glycol (MIRALAX) Packet 17 g 17 g, Oral, DAILY PRN, constipation, Sta rting on Fri07/06/21 at 1400, Indications: Constipation, Give in 8 ounces of water, juice, or soda. Hold for loose stools. 1 Packet = 17 grams. Mix each gram with at least 1/2 ounce (15 mL) of water - 8 ounces for 17 g dose, 4 ounces for 8.5 g dose, 2 ounces for 4 g dose. Follow with the same volume of water. Hold for loose stools unless being administered as part of a bowel prep regimen or bowel clean out. sodium chloride (PF) 0.9% PF flush 10-20 mL 1510 (Give n - Provider: ANDREA Bryant - Comment: pre and post blood draw) 10-20 mL, Intracatheter, EVERY 1 MIN PRN , line flush, Starting on Fri07/06/21 at 1722, Flush catheter with 10 mL sodium chloride 0.9% to ensure patency or after IV medications/TPN to clear the catheter. Flush catheter with 20 mL sodium chlori de 0.9% after blood draws or blood administration from the catheter. sodium chloride (PF) 0.9% PF flush 10-40 mL 10-40 mL, Intracatheter, EVERY 1 HOUR VA N, other, to lock EACH CVC - Valved (Tunneled and Non-Tunneled) dormant lumen(s), Starting on Fri07/06/21 at 1722, Max dose: 10 mL for each lumen Sodium chloride 0.9% 10 mL for each lumen to flush line and lock the lumen. sodium chloride 0.9% (bottle) irrigation PRN, Starting on 07/07/21 at 0945, Intra-procedure Linked Groups Order Group 1: ondansetron (ZOFRAN ODT) ODT tab 4 mgJump to med 4 mg, Oral, EVERY 6 HOURS PRN, nausea, v omiting, Starting on Fri07/06/21 at 1400
This is Step 1 of nausea and vomiting management. If nausea not resolved in 15 minutes, go to Step 2 prochlorperazine (COMPAZINE).&nb sp;With dry hands, peel back foil backing and gently remove tablet. Do not push oral disintegrating tablet through foil backing. Administer immediately on ton jada and oral disintegrating tablet disso lves in seconds, then swallow with saliva. Liquid not required.
Or ondansetron (ZOFRAN) injection 4 mgJump to med 4 mg, Intravenous, EVERY 6 HOURS PRN, na usea, vomiting, Administer over 2-5 Minutes, Starting on Fri07/06/21 at 1400
Give IF patient unable to tolerate oral medication. This is Step 1 of nausea and vomiting management. If na usea not resolved in 15 minutes, go to Step 2 prochlorperazine (COMPAZINE). Irritant.
documented in this encounter Additional Health Concerns Infection Onset Date Last Indicated Resolved Time MRSAComment: Added from external infection. 11/07/201406/18 Assessment Noted Time PHQ-9 Depression Total Score: 2 12/15/2020 1:07 PM CDT documented as of this encounter Care Teams Station Helper Relationship Specialty Start Date End Date Juanis Mckenzie PCP - General Addiction Medicine 06/29/21 [address] [place] [address] Deann Pina APRN THIRD LOADER Assigned PCP 02/25/21 [address] [facility] [address] [place], [place] [id number] documented as of this encounter
--- OUTSIDE RECORDS SUMMARY | 2021-11-10 00:37 | XMS_ITS | Encounter Summary ---
:1980 Author Organization [place] Address [address] [place] [address]. [place] [address] Care Team Providers Name Role Phone Stephani Pina APRN LABORER/GRADE CHECK Unavailable [phone] Juanis Levi Primary Care Provider Encounter Details Date Type Department Care Team Description 07/19/2021 Telephone [facility] [place] [address] [phone] Social History Tobacco Use Types Packs/Day [...] at Date Recorded Female 01/14/2020 10:57 AM FINANCIAL SERVICES SALES 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 documented as of this encounter Miscellaneous Notes Telephone Encounter - Rossana Carroll - 07/19/2021 12:53 PM CDT 07/19-Patient is currently inpatient, will call tomorrow to get her scheduled.-LN documented in this encounter Plan of Treatment Upcoming Encounters Date Type Specialty Care Team Description 11/15/2021 Office Visit Wound Care Luis Camara, CALVIN [address] [place] [address] (Wo rk) documented as of this encounter Visit Diagnoses Not on filedocumented in this encounter Additional Health Concerns Infection Onset Date Last Indicated Resolved Time MRSAComment: Added from external infection. 11/07/2014 05/02/2021 Assessment Noted Time PHQ-9 Depression Total Score: 2 12/15/2020 1:07 PM CDT documented as of this encounter Care Teams Crane Manager Relationship Specialty Start Date End Date Juanis Levi PCP - General Addiction Medicine 06/29/21 [facility] [place] [phone] Stephani Pina, HOSPITAL WELLNESS COORDINATOR LABORER/GRADE CHECK Assigned PCP 02/25/21 [facility] [address] [place] [address] documented as of this encounter
--- OUTSIDE RECORDS SUMMARY | 2021-11-10 00:37 | XMS_ITS | Encounter Summary ---
:1980 Author Organization [place] Address [facility] [place] [address] Care Team Providers Name Role Phone Stephani Pina APRN CYLINDER STEAMER Unavailable Juanis Levi Primary Care Provider Elsa Yeh RN Unavailable Unavailable Encounter Details Date Type Department Care Team Description 07/11/2021 Telephone [facility]aling [facility] Medical Office [address] [facility] [address] [place] [address] [address] [facility] [phone] [place] [address] Social History Tobacco Use Types Packs/Day Years [...] at Date Recorded Female 01/14/2020 10:57 AM MARINE ENGINE DRIVER COVID-19 Exposure Response Date Recorded In the last 10 days, have you been in contact with No / Unsu re 07/31/2021 1:25 PM CDT someone who was confirmed or suspected to have Coronavirus/COVID-19? documented as of this encounter Miscellaneous Notes Telephone Encounter - Marleny Paris LPN - 07/13/2021 11:30 AM CDT Pt currently inpatient. Spoke w/patient and she will call upon discharge. Telephone Encounter - La Nena Rowe RN - 07/11/2021 4:18 PM CDT Consult received via [employer] from Dr. Treadwell for wound of the right ankle Patient has history of smoking. Per Standing Order patient qualifies for NIKHIL to be scheduled prior to assessment with providers Sebastian Mcknight Bohm, Tray or Ever at [facility] for next available appointment. Is patient a TAYO lift? Account Management Specialist to inquire Routing to patient safety coordinator Ann Marie Eckert. Orders pending. Telephone Encounter - La Nena Rowe RN - 07/11/2021 4:18 PM CDT Marilynn Harrison RN P Wound Healing Nurse [facility], Can you please assist with getting this patient scheduled with one of the wound care center providers? It can be any of the wound care providers, or Dr. Feliz/Dr. Rocha. We do not manage these types of wounds in [place] and do not do wound vac dressing changes in clinic. Thank you, Marilynn Harrison RN documented in this encounter Plan of Treatment Upcoming Encounters Date Type Specialty Care Team Description 11/15/2021 Office Visit Wound Care Luis Camara, [address] [place] [address] (Wo rk) documented as of this encounter Visit Diagnoses Diagnosis Leg ulcer, right, with unspecified sever ity (H) - Primary documented in this encounter Additional Health Concerns Infection Onset Date Last Indicated Resolved Time MRSAComment: Added from external infection. 11/07/201406/18 Assessment Noted Time PHQ-9 Depression Total Score: 2 12/15/2020 1:07 PM CDT documented as of this encounter Care Teams Firearms Specialist Relationship Specialty Start Date End Date Juanis Levi PCP - General Addiction Medicine 06/29/21 [facility] [place] [phone] Stephani Pina APRN CYLINDER STEAMER Assigned PCP 02/25/[address] [place] [id number] Elsa Yeh RN Registered Nurse Infectious Diseases 07/25/21 documented as of this encounter
--- OUTSIDE RECORDS SUMMARY | 2021-11-10 00:38 | XMS_ITS | Encounter Summary ---
:1980 Author Organization [place] Address [address] [place] [address] Care Team Providers Name Role Phone Clinic, [facility] Primary Care Provide r Stephani Pina FARZANA CLAIM PROFESSIONAL Unavailable [phone] Encounter Details Date Type Department Care Team Description 05/04/2021 Travel Social History Tobacco Use Types Packs/Day [...] at Date Recorded Female 01/14/2020 10:57 AM RUBBER GOODS TESTER COVID-19 Exposure Response Date Recorded In the last month, have you been in contact with No / Unsure 05/04/2021 11:13 AM CDT someone who was confirmed or suspected to have Coronavirus / COVID-19? documented as of this encounter Plan of Treatment Upcoming Encounters Date Type Specialty Care Team Description 11/15/2021 Office Visit Wound Care Luis Camaar DPM [address] [place] [address] (Wo rk) documented as of this encounter Visit Diagnoses Not on filedocumented in this encounter Additional Health Concerns Assessment Noted Time PHQ-9 Depression Total Score: 2 12/15/2020 1:07 PM CDT documented as of this encounter Care Teams Custom Ski Maker Relationship Specialty Start Date End Date Clinic, [facility] PCP - General 01/20/18 06/28/[address] [place] [address] [id number] Stephani Pina APRN CLAIM PROFESSIONAL Assigned PCP 02/25/21 [address] [id number] documented as of this encounter
--- OUTSIDE RECORDS SUMMARY | 2021-11-10 00:38 | XMS_ITS | Encounter Summary ---
:1980 Author Organization [place] Address [address] [place] [address] Care Team Providers Name Role Phone Clinic, [facility] Primary Care Provide r Stephani Pina FARZANA PERSONAL BANKING 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 Unavailable [phone] Encounter Details Date Type Department Care Team Description 03/27/2020 Travel Social History Tobacco Use Types Packs/Day Years Used Date Current Every Day Smoker Cigarettes 0.25 10 Smokeless Tobacco: Never Used Comments: 5-8 cigarettes a day Alcohol Use Standard Drinks/Week Comments Yes 0 (1 standard drink = 0.6 oz pure alcoho l) drinking a pint of vodka daily Alcohol Habits Answer Date Recorded How often do you have a drink containing Not asked 05/31/2020 alcohol? How many drinks containing alcohol do Not asked you have on a typical day when you are drinking? How often do you have six or more drinks Not asked 05/31/2020 on one occasion? Comment: drinking a pint of vodka daily 0 Sex Assigned at Date Recorded Female 01/14/2020 10:57 AM MANAGER SUPPORT SERVICES COVID-19 Exposure Response Date Recorded In the last month, have you been in contact with No / Unsure 03/27/2020 9:20 AM MANAGER SUPPORT SERVICES someone who was confirmed or suspected to have Coronavirus / COVID-19? documented as of this encounter Plan of Treatment Upcoming Encounters Date Type Specialty Care Team Description 11/15/2021 Office Visit Wound Care Luis Camara DPM [address] [place] [address] (Wo rk) documented as of this encounter Visit Diagnoses Not on filedocumented in this encounter Additional Health Concerns Assessment Noted Time PHQ-9 Depression Total Score: 6 12/27/2019 9:38 AM MANAGER SUPPORT SERVICES documented as of this encounter Care Teams Fish Culturist Relationship Specialty Start Date End Date Clinic, [facility] PCP - General 01/20/18 06/28/[address] [place] [address] Stephani Pina APRN PERSONAL BANKING 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 Assigned PCP 01/30/20 12/30/[address] [place] [id number] documented as of this encounter
--- OUTSIDE RECORDS SUMMARY | 2021-11-10 00:38 | XMS_ITS | Encounter Summary ---
:1980 Author Organization [place] Address [address] [place] [address] Care Team Providers Name Role Phone Clinic, [facility] Primary Care Provide r Stephani Pina FARZANA RATE ANALYST Unavailable Reason for Visit Reason Onset Date Comments Erroneous encounter-disregard 08/25/2020 Encounter Details Date Type Department Care Team Description 08/23/2020 Virtual Visit [facility] Inocencio Newberry ERRONEOUS Hepatology Clinic JIMBO Jesus ENCOUNTER--DISREGARD [address] (Primary Dx) [address] [place] [phone] Social History Tobacco Use Types Packs/Day Years Used Date Current Every Day Smoker Cigarettes 0.25 10 Smokeless Tobacco: Never Used Comments: 5-8 cigarettes a day Alcohol Use Standard Drinks/Week Comments Not Currently 0 (1 standard drink = 0.6 oz pure drinki ng a pint of vodka daily alcohol) Alcohol Habits Answer Date Recorded How often [...] at Date Recorded Female 01/14/2020 10:57 AM PATCHING 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 COVID-19 Exposure Response Date Recorded In the last month, have you been in contact with No / Unsure 08/16/2020 11:17 AM CDT someone who was confirmed or suspected to have Coronavirus / COVID-19? documented as of this encounter Progress Notes Inocencio Newberry PA-C - 08/23/2020 11:15 AM CDT This encounter was opened in error. Please disregard. documented in this encounter Plan of Treatment Upcoming Encounters Date Type Specialty Care Team Description 11/15/2021 Office Visit Wound Care Luis Camara DPM [address] [place] [address] (Wo rk) documented as of this encounter Visit Diagnoses Diagnosis ERRONEOUS ENCOUNTER--DISREGARD - Primary documented in this encounter Additional Health Concerns Assessment Noted Time PHQ-9 Depression Total Score: 6 12/27/2019 9:38 AM PATCHING 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 documented as of this encounter Care Teams Cracking And Fanning Machine Operator Relationship Specialty Start Date End Date Clinic, [facility] PCP - General 01/20/18 06/28/[address] [place] [address] [phone] Stephani Pina APRN RATE ANALYST Assigned PCP 01/30/20 12/30/[address] [place] [address] documented as of this encounter
--- OUTSIDE RECORDS SUMMARY | 2021-11-10 00:38 | XMS_ITS | Encounter Summary ---
:1980 Author Organization [place] Address [address] [place] [address] Care Team Providers Name Role Phone Clinic, [facility] Primary Care Provide r Stephani Pina FARZANA PORTFOLIO MGR Unavailable [phone] Encounter Details Date Type Department Care Team Description 07/12/2020 Travel Social History Tobacco Use Types Packs/Day [...] at Date Recorded Female 01/14/2020 10:57 AM OBJECTIVE C DEVELOPER COVID-19 Exposure Response Date Recorded In the last month, have you been in contact with No / Unsure 07/12/2020 11:10 AM CDT someone who was confirmed or suspected to have Coronavirus / COVID-19? documented as of this encounter Plan of Treatment Upcoming Encounters Date Type Specialty Care Team Description 11/15/2021 Office Visit Wound Care Luis Camara, [place]VIN [address] [place] [address] (Wo rk) documented as of this encounter Visit Diagnoses Not on filedocumented in this encounter Additional Health Concerns Assessment Noted Time PHQ-9 Depression Total Score: 6 12/27/2019 9:38 AM OBJECTIVE C DEVELOPER documented as of this encounter Care Teams Manager Treasury Relationship Specialty Start Date End Date Clinic, [facility] PCP - General 01/20/18 06/28/[address] [place] [address] [phone] Stephani Pina APRN PORTFOLIO MGR Assigned PCP 01/30/20 12/30/[address] [place] [address] [phone] documented as of this encounter
--- OUTSIDE RECORDS SUMMARY | 2021-11-10 00:38 | XMS_ITS | Encounter Summary ---
:1980 Author Organization [place] Address [address] [place] [address] Care Team Providers Name Role Phone Clinic, [facility] Primary Care Provide r Stephani Pina FARZANA OFFICE TECHNOLOGY PROFESSOR Unavailable [phone] Encounter Details Date Type Department Care Team Description 03/05/2021 Travel Social History Tobacco Use Types Packs/Day [...] at Date Recorded Female 01/14/2020 10:57 AM FABRICATION TECHNICIAN COVID-19 Exposure Response Date Recorded In the last month, have you been in contact with No / Unsure 03/05/2021 9:18 AM FABRICATION TECHNICIAN someone who was confirmed or suspected to have Coronavirus / COVID-19? documented as of this encounter Plan of Treatment Upcoming Encounters Date Type Specialty Care Team Description 11/15/2021 Office Visit Wound Care Luis Camara DPM [address] [place] [address] (Wo rk) documented as of this encounter Visit Diagnoses Not on filedocumented in this encounter Additional Health Concerns Assessment Noted Time PHQ-9 Depression Total Score: 2 12/15/2020 1:07 PM CDT documented as of this encounter Care Teams Stripper Latex Relationship Specialty Start Date End Date Clinic, [facility] PCP - General 01/20/18 06/28/[address] [place] [address] [phone] Stephani Pina APRN OFFICE TECHNOLOGY PROFESSOR Assigned PCP 02/25/21 [address] [facility] [address] [place], [place] 9[address] documented as of this encounter
--- OUTSIDE RECORDS SUMMARY | 2021-11-10 00:38 | XMS_ITS | Encounter Summary ---
:1980 Author Organization [place] Address [address] [facility] [place] [address] Care Team Providers Name Role Phone Clinic, [facility] Primary Care Provide r Tatyana Haas STEWARD/STEWARDESS WINE ECO INDUSTRIAL DEVELOPMENT CONSULTANT Unavailable [phone] Reason for Visit Reason Onset Date Comments Medication Request 02/12/2021 subutex Encounter Details Date Type Department Care Team Description 02/12/2021 Telephone [facility] Edgar Alfredo, [facility] ication Request Clinic Ashly VÁSQUEZ (subutex) [address] [place] [address] [place] [phone] (Wo rk) Social History Tobacco Use Types [...] at Date Recorded Female 01/14/2020 10:57 AM LADLE REPAIRMAN COVID-19 Exposure Response Date Recorded In the last month, have you been in contact with No / Unsure 01/15/2021 1:15 PM LADLE REPAIRMAN someone who was confirmed or suspected to have Coronavirus / COVID-19? documented as of this encounter Miscellaneous Notes Telephone Encounter - Juanjose Parham - 02/12/2021 12:44 PM CST Reason for Call: Medication Request due to: missed appointment Name of the pharmacy and phone number for the current request: [id number] - [place], [place] -[address] Request for bridge of: Subutex 8mg Other Information: Taking as prescribed: Yes Date/Time/ amount of last dose: 03/15 @ 5 am Pt missed in person visit with 02/12/21 @ 10:40 am. Reschedule for in person visit 02/27/21 @9:15 am. Requesting a bridge to get her to appt. Please further assist. Pt informed to follow up with pharmacy for status of refill as addiction RN will only reach out if there are any issues or questions and will be addressed within one business day. Pt also informed that this request for a bridge is simply a request and doesn't guarantee the medication will be filled. Can we leave a detailed message on this number? Yes Phone number patient can be reached at: [phone] Best Time: Any E REPAIRMAN documented in this encounter Plan of Treatment Upcoming Encounters Date Type Specialty Care Team Description 11/15/2021 Office Visit Wound Care Luis Camara DPM [address] [place] [address] (Wo rk) documented as of this encounter Visit Diagnoses Diagnosis Opioid use disorder, severe, in sustaine d remission, on maintenance therapy (H) documented in this encounter Additional Health Concerns Assessment Noted Time PHQ-9 Depression Total Score: 2 12/15/2020 1:07 PM CDT documented as of this encounter Care Teams Specimen Boss Relationship Specialty Start Date End Date Clinic, [facility] PCP - General 01/20/18 06/28/21 [address] [place] [address] Tatyana Haas APRN ECO INDUSTRIAL DEVELOPMENT CONSULTANT Assigned PCP 12/31/20 02/24/21 [facility] [address] [facility] [address] [place] [address] documented as of this encounter
--- OUTSIDE RECORDS SUMMARY | 2021-11-10 00:38 | XMS_ITS | Encounter Summary ---
:1980 Author Organization [place] Address [address] [facility] [place] [address] Care Team Providers Name Role Phone Clinic, [facility] Primary Care Provide r Stephani Pina FARZANA DOCUMENTATION LIAISON Unavailable Reason for Visit Reason Onset Date Comments Clinic Care Coordination - Follow-up 03/27/2020 Encounter Details Date Type Department Care Team Description 03/27/2020 Telephone [facility], Clinic Car e Coordination Clinic Chevak Derrel - Follow-up [address] [place] [address] Social History Tobacco Use Types [...] at Date Recorded Female 01/14/2020 10:57 AM LAW RESEARCHER COVID-19 Exposure Response Date Recorded In the last month, have you been in contact with No / Unsure 03/27/2020 9:20 AM LAW RESEARCHER someone who was confirmed or suspected to have Coronavirus / COVID-19? documented as of this encounter Miscellaneous Notes Telephone Encounter - Kamari Spring - 03/27/2020 11:15 AM CST Stephani is setup with Eri He on the at 4pm with Dr. Jorden [facility] for residential care. RESEARCHER documented in this encounter Plan of Treatment Upcoming Encounters Date Type Specialty Care Team Description 11/15/2021 Office Visit Wound Care Luis Camara DPM [address] [place], [place] [phone] (Wo rk) documented as of this encounter Visit Diagnoses Not on filedocumented in this encounter Additional Health Concerns Assessment Noted Time PHQ-9 Depression Total Score: 6 12/27/2019 9:38 AM LAW RESEARCHER documented as of this encounter Care Teams Wrapper Opener Relationship Specialty Start Date End Date Clinic, [facility] PCP - General 01/20/18 06/28/[address] [place] [address] Stephani Pina APRN DOCUMENTATION LIAISON Assigned PCP 01/30/20 12/30/[address] [place] [address] [phone] documented as of this encounter
--- OUTSIDE RECORDS SUMMARY | 2021-11-10 00:38 | XMS_ITS | Encounter Summary ---
:1980 Author Organization [place] Address [address] [facility] [place] [address] Care Team Providers Name Role Phone Clinic, [facility] Primary Care Provide r Stephani Pina FARZANA PRODUCTION PAINTER Unavailable [phone] Encounter Details Date Type Department Care Team Description 02/27/2021 Office Visit [facility] Edgar Alfredo Opioid us e disorder, Clinic Ashly Gauthier MD severe, in sustained [address] [place] remission, on [address] 700 maintenance therapy [place], [place] (H) (Prim jaime Dx) [phone] Social History Tobacco Use Types Packs/Day Years [...] at Date Recorded Female 01/14/2020 10:57 AM PRIME BROKER documented as of this encounter Progress Notes Edgar Alfredo MD - 02/27/2021 9:15 AM CST NO SHOW E BROKER documented in this encounter Plan of Treatment Upcoming Encounters Date Type Specialty Care Team Description 11/15/2021 Office Visit Wound Care Luis Camara DPM [address] [place] [address] (Wo rk) documented as of this encounter Visit Diagnoses Diagnosis Opioid use disorder, severe, in sustaine d remission, on maintenance therapy (H) - Primary documented in this encounter Additional Health Concerns Assessment Noted Time PHQ-9 Depression Total Score: 2 12/15/2020 1:07 PM CDT documented as of this encounter Care Teams Forest Resources Professor Relationship Specialty Start Date End Date Clinic, [facility] PCP - General 01/20/18 06/28/[address] [place] [address] [phone] Stephani Pina APRN PRODUCTION PAINTER Assigned PCP 02/25/21 [facility] 700 [place] [address] documented as of this encounter
--- OUTSIDE RECORDS SUMMARY | 2021-11-10 00:38 | XMS_ITS | Encounter Summary ---
:1980 Author Organization [place] Address [facility] [place] [address] Care Team Providers Name Role Phone Clinic, [facility] Primary Care Provide r Yovani Stephani Alvarez APRN STORY WRITER Unavailable Juanis Levi Primary Care Provider Elsa Yeh RN Unavailable Unavailable Rogelio Treadwell MD Unavailable [phone] Luis Camara DPM Unavailable [phone] Camryn Christina MD Unavailable Sintia Lange PA-C Unavailable Encounter Details Date Type Department Care Team Description 02/27/2021 Telephone [facility] Nithya Alfredo MD [address] [place] [address] [phone] [place] [address] [phone] Social History Tobacco Use Types Packs/Day Years [...] at Date Recorded Female 01/14/2020 10:57 AM TAPE CONTROLLED 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 Patient verbalized understanding and said she will check since she does not know at the moment and that she and her family are home sick with Covid. Patient will end back TRANSCORP message as needed. Rn also gave patient the contact number to call triage back as needed. CONTROLLED MACHINE STITCHER Telephone Encounter - Lurdes Lucas - 02/27/2021 1:55 PM CST Pt reports she missed her appt this morning because she and her family are sick with COVID. Appt wasrescheduled, but she asked for a bridge of her medications until then. CONTROLLED MACHINE STITCHER documented in this encounter Plan of Treatment Upcoming Encounters Date Type Specialty Care Team Description 11/15/2021 Office Visit Wound Care Luis Camara DPM [address] [place] [address] (Wo rk) documented as of this encounter Visit Diagnoses Not on filedocumented in this encounter Additional Health Concerns Infection Onset Date Last Indicated Resolved Time MRSAComment: Added from external infection. 11/07/201406/18 Assessment Noted Time PHQ-9 Depression Total Score: 2 12/15/2020 1:07 PM CDT documented as of this encounter Care Teams Dynamo Repairer Relationship Specialty Start Date End Date Clinic, [facility] PCP - General 01/20/[address] [address] Juanis Levi PCP - General Addiction Medicine 06/29/21 [address] [place] [phone] Stephani Pina, Assigned PCP 02/25/21 TELEPHONE LINES REPAIRER STORY WRITER [address] [place] [place] [address] Elsa Yeh, Registered Nurse Infectious Diseases 07/25/21 RN Rogelio Treadwell Assigned Musculoskeletal 08/04/21 MD August Provider [address] [place] [address] Luis Camara MD Podiatry 08/16/21 [place]ett [address] [place] [address] Camryn Christina, Assigned Surgical 09/01/21 09/07/21 Provider [address] [facility] [address] [place], [place] [phone] Sintia Lange PA-C Assigned Surgical 09/08/[address] Provider FLOOR [place], [place] [phone] documented as of this encounter
--- OUTSIDE RECORDS SUMMARY | 2021-11-10 00:38 | XMS_ITS | Encounter Summary ---
:1980 Author Organization [place] Address [facility] [place] [address] Care Team Providers Name Role Phone Clinic, [facility] Primary Care Provide r Eufemia Pinadelon Alvarez APRN NURSE EXTERN Unavailable Juanis Levi Primary Care Provider Elsa Yeh RN Unavailable Unavailable Rogelio Treadwell MD Unavailable [phone] Luis Camara DPM Unavailable [phone] Camryn Christina MD Unavailable Sintia Lange PA-C Unavailable Reason for Visit Reason Comments Medication Refill Encounter Details Date Type Department Care Team Description 02/27/2021 Refill [facility] Reymundo Sifuentes MD Medication Refill [place] [address] [place] [address] [place] [phone] Social History Tobacco Use Types Packs/Day Years [...] at Date Recorded Female 01/14/2020 10:57 AM COST ESTIMATING ENGINEER documented as of this encounter Miscellaneous Notes Telephone Encounter - Symone Solano RN - 02/27/2021 4:15 PM CSTSummary: Refills Subutex and ibuprofen refill requests. Phone call to patient. Last app[facility] was 01/15/[address] [facility] Patient has not yet established withDr. Alfredo. Was scheduled for appt today with Dr. Alfredo but was unable to make it because her daughter tested positive for COVID and she had to take the rest of the family to get tested. Patient will be out of Suboxone tomorrow. Rescheduled appt with Dr. Alfredo: 03/12/21, in person Virtual appt w/Dr. Levi scheduled for tomorrow, 02/28/21. Routing to Dr. Levi as FYI. Symone Solano RN on 02/27/2021 at 4:18 PM ESTIMATING ENGINEER documented in this encounter Plan of Treatment Upcoming Encounters Date Type Specialty Care Team Description 11/15/2021 Office Visit Wound Care Luis Camara DPM [address] [place] [address] (Wo rk) documented as of this encounter Visit Diagnoses Diagnosis Opioid use disorder, severe, in sustaine d remission, on maintenance therapy (H) documented in this encounter Additional Health Concerns Infection Onset Date Last Indicated Resolved Time MRSAComment: Added from external infection. 11/07/2014 05/02/2021 Assessment Noted Time PHQ-9 Depression Total Score: 2 12/15/2020 1:07 PM CDT documented as of this encounter Care Teams Section Gang Relationship Specialty Start Date End Date Clinic, [facility] PCP - General 01/20/[address] [address] Juanis Levi PCP - General Addiction Medicine 06/29/21 [address]50 [place] [phone] Stephani Pina, Assigned PCP 02/25/21 TRAVEL GUIDE NURSE EXTERN [address] [place] [address] [place] [address] Elsa Yeh, Registered Nurse Infectious Diseases 07/25/21 RN Rogelio Treadwell Assigned Musculoskeletal 08/04/21 MD August Provider [address] [place] [address] Luis Camara MD Podiatry 08/16/21 [place] Burnett [address] [place] [address] Camryn Christina, Assigned Surgical 09/01/21 09/07/21 Provider [address] [facility] [address] [place], [place] [phone] Sintia Lange PA-C Assigned Surgical 09/08/[address] [place] [address] Provider FLOOR [place], [place] [phone] documented as of this encounter
--- OUTSIDE RECORDS SUMMARY | 2021-11-10 00:38 | XMS_ITS | Encounter Summary ---
:1980 Author Organization [place] Address [address] [place] [address] Care Team Providers Name Role Phone Clinic, [facility] Primary Care Provide r Stephani Pina FARZANA CLIENT SUPPORT ANALYST Unavailable [phone] Encounter Details Date Type Department Care Team Description 03/29/2020 Travel Social History Tobacco Use Types Packs/Day [...] at Date Recorded Female 01/14/2020 10:57 AM BUCKLE STRAP DRUM OPERATOR COVID-19 Exposure Response Date Recorded In the last month, have you been in contact with No / Unsure 03/29/2020 2:20 PM BUCKLE STRAP DRUM OPERATOR someone who was confirmed or suspected to have Coronavirus / COVID-19? documented as of this encounter Plan of Treatment Upcoming Encounters Date Type Specialty Care Team Description 11/15/2021 Office Visit Wound Care Luis Camara DPM [address] [place] [address] (Wo rk) documented as of this encounter Visit Diagnoses Not on filedocumented in this encounter Additional Health Concerns Assessment Noted Time PHQ-9 Depression Total Score: 6 12/27/2019 9:38 AM BUCKLE STRAP DRUM OPERATOR documented as of this encounter Care Teams Hospice Chaplain Relationship Specialty Start Date End Date Clinic, [facility] PCP - General 01/20/18 06/28/[address] [place] [address] Stephani Pina APRN CLIENT SUPPORT ANALYST Assigned PCP 01/30/20 12/30/[address] [place] [phone] documented as of this encounter
--- OUTSIDE RECORDS SUMMARY | 2021-11-10 00:38 | XMS_ITS | Encounter Summary ---
:1980 Author Organization [place] Address [facility] [place] [address] Care Team Providers Name Role Phone Clinic, [facility] Primary Care Provide r Guerita Haasherb Bills SPA MANAGER MERCHANDISE ADJUSTMENT CLERK Unavailable [phone] Encounter Details Date Type Department Care Team Description 02/12/2021 Office Visit [facility] Edgar Alfredo Uncomplic ated opioid Clinic Ashly Gauthier MD dependence (H) (Primary [address] Dx) [address] [place] [address] [place] [phone] Social History Tobacco Use Types Packs/Day [...] at Date Recorded Female 01/14/2020 10:57 AM MORNING NEWS PRODUCER COVID-19 Exposure Response Date Recorded In the last month, have you been in contact with No / Unsure 01/15/2021 1:15 PM MORNING NEWS PRODUCER someone who was confirmed or suspected to have Coronavirus / COVID-19? documented as of this encounter Progress Notes Edgar Alfredo MD - 02/12/2021 10:40 AM CST NO SHOW ING NEWS PRODUCER documented in this encounter Plan of Treatment Upcoming Encounters Date Type Specialty Care Team Description 11/15/2021 Office Visit Wound Care Luis Camara DPM 909 [place], [place] [phone] (Wo rk) documented as of this encounter Visit Diagnoses Diagnosis Uncomplicated opioid dependence (H) - Pr imary Opioid type dependence, unspecified documented in this encounter Additional Health Concerns Assessment Noted Time PHQ-9 Depression Total Score: 2 12/15/2020 1:07 PM CDT documented as of this encounter Care Teams Food Packer Relationship Specialty Start Date End Date Clinic, [facility] PCP - General 01/20/18 06/28/[address] [place] [address] Tatyana Haas APRN MERCHANDISE ADJUSTMENT CLERK Assigned PCP 12/31/20 02/24/21 [facility] [address] [facility] [address] [place] [address] documented as of this encounter
--- OUTSIDE RECORDS SUMMARY | 2021-11-10 00:38 | XMS_ITS | Encounter Summary ---
:1980 Author Organization [facility] Address [address] [place] [address]. [place] [address] Care Team Providers Name Role Phone Clinic, [facility] Primary Care Provide r Stephani Pian FARZANA ENDOSCOPE TECHNICIAN Unavailable Encounter Details Date Type Department Care Team Description 03/28/2020 Telephone [facility] Generic, [facility] [place], MD [address] [place] [phone] Social History Tobacco Use Types Packs/Day Years [...] at Date Recorded Female 01/14/2020 10:57 AM VAMP MARKER COVID-19 Exposure Response Date Recorded In the last month, have you been in contact with No / Unsure 07/12/2020 11:10 AM CDT someone who was confirmed or suspected to have Coronavirus / COVID-19? documented as of this encounter Miscellaneous Notes Telephone Encounter - Victoria Nunes - 05/17/2020 1:44 PM CDT ----- Message from OLGA Deshpande sent at 05/17/2020 1:35 PM CDT ----- Regarding: Set up 1 IOP KRYSTA Phase II appointment for client at [facility] Patient Name: ??See above Location of programming: [facility] Start Date: 05/18/2020 Group: ([id number] TH 5:30PM Provider: OLGA Baron Number of visits to be scheduled: 1 Length/Duration of Appointment in minutes: 120 Visit Type (VIDEO/TELEPHONE/IN-PERSON): Video ([id number]) Additional notes: OLGA Jacobson Telephone Encounter - Triston Cameron - 05/10/2020 8:17 AM CDT ----- Message from OLGA Deshpande sent at 05/09/2020 7:28 PM CDT ----- Regarding: Add 1 IOP KRYSTA Phase II appointment for client at [facility] Patient Name: ??See above Location of programming: [facility] Start Date: 05/11/20 Group: ([id number] Provider: OLGA Baron Number of visits to be scheduled: 1 Length/Duration of Appointment in minutes: 120 Visit Type (VIDEO/TELEPHONE/IN-PERSON): Video ([id number]) Additional notes: OLGA Baron Telephone Encounter - Brittnee Lainez - 04/21/2020 3:34 PM CST ----- Message from OLGA Deshpande sent at 04/21/2020 3:16 PM VAMP MARKER ----- Regarding: Set up IOP Phase III appointments for client at [facility] Patient Name: ??See above Location of programming: [facility] Start Date: 04/25/20 Group: ([id number] T 5:30PM Provider: OLGA Baron Number of visits to be scheduled: 8 Length/Duration of Appointment in minutes: 120 Visit Type (VIDEO/TELEPHONE/IN-PERSON): Video ([id number]) Additional notes: Thanks OLGA Baron MARKER Telephone Encounter - Brittnee Lainez - 04/21/2020 3:24 PM CST ----- Message from OLGA Deshpande sent at 04/21/2020 3:15 PM VAMP MARKER ----- Regarding: Cancel all future mixed IOP KRYSTA Phase II appointments at [facility] location Please arrange to cancel all future mixed IOP KRYSTA Phase II appointments for the above client at the [facility] location effective immediately. [id number]. Client will begin Phase III next week. Thanks OLGA Baron MARKER Telephone Encounter - Britton Goodwin LADC - 04/05/2020 4:29 PM CST Received call from Aarti Tirado [facility]. CPS worker regarding getting notes regarding client. Indicated she would fax GIOVANNA to me. Aarti asked me specifically about client sobriety since client has not come in to [facility] for required breath tests. I reported that I have not required Stephani to do a breath test here and she is attending via virtual video. I will be speaking to Stephani to let her know that the documentation I will share with CPS is going to show by her own admission she has relapsed on alcohol in the last several months. I will offer her the opportunity to contact CPS prior to sending that information, but I will be sending it as soon as Ireenriquetaive the GIOVANNA and CPS will of course do with the information whatever their protocol indicates. OLGA Baron MARKER Telephone Encounter - Allie Aguilera - 03/28/2020 4:49 PM CST ----- Message from OLGA Deshpande sent at 03/28/2020 3:38 PM VAMP MARKER ----- Regarding: Set up 1:1 appointment for client with me via video at [facility] Please arrange a 1:1 video ([id number]) appointment with me for the above client for March 29 at 1PM. My provider ID is; [id number]. Thanks OLGA Baron MARKER documented in this encounter Plan of Treatment Upcoming Encounters Date Type Specialty Care Team Description 11/15/2021 Office Visit Wound Care Luis Camara, [place]VIN [address] [place], [place] [id number] (Wo rk) documented as of this encounter Visit Diagnoses Diagnosis Alcohol abuse, continuous - Primary Nondependent alcohol abuse, continuous d rinking behavior documented in this encounter Additional Health Concerns Assessment Noted Time PHQ-9 Depression Total Score: 6 12/27/2019 9:38 AM VAMP MARKER documented as of this encounter Care Teams Automobile Rental Clerk Relationship Specialty Start Date End Date Clinic, [facility] PCP - General 01/20/18 06/28/[address] [place] [address] Stephani Pina APRN ENDOSCOPE TECHNICIAN Assigned PCP 01/30/20 12/30/[address] [place] [address] documented as of this encounter
--- OUTSIDE RECORDS SUMMARY | 2021-11-10 00:38 | XMS_ITS | Encounter Summary ---
:1980 Author Organization [facility] Address [address] [place] [address]. [place] [address] Care Team Providers Name Role Phone Stephani Pina APRN MEMS DEVICE SCIENTIST Unavailable [phone] Juanis Levi Primary Care Provider Reason for Visit Auth/Cert Specialty Diagnoses / Procedures Referred By Contact Refer red To Contact Med Surg Diagnoses Complicated Osteomyelitis [facility] [address] [place] [address] [place] [address] Phone: Fax: Referral ID Status Reason Start Date Expiration Date Visits Requ ested Visits Authorized [id number] 1 1 Encounter Details Date Type Department Care Team Description 07/07/2021 Anesthesia Event M [facility] Roosevelt Doan MD [address] [place] [address] PeriOp Services Victoria Christy MD [address] [place] [address] [place] [phone] Anesthesia Record Procedure Summary Procedure Name Responsible Anesthesia Start Anesthesia Stop Anesthesiologist Time Time IRRIGATION AND Roosevelt Doan MD 07/07/21 0757 07/07/21 0934 DEBRIDEMENT, FOOT and ankle, wound vac exchange (Right Foot) Events Date Time Event Comment 07/07/2021 0647 CEMENT WORKER Ready for Procedure 0757 An Start 0758 AN REASSESS I attest that I have identified and re-evaluated the patient immediately before the induc tion of anesthesia and I am satisfied dorian t the anesthetic plan is suitable for the patient's condition and procedure. The f irst vital signs recorded are pre - induction. FARZANA Enrique 0758 An Start Data 0803 An Induction 0804 An LMA 0810 Anesthesia Complete 0825 Initial Antibiotic (Started) 0830 Antibiotic Complete 0833 Timeout 0834 AN INCISION 0917 LMA Removed 0921 an stop data 0934 An Stop Electronically s igned by FARZANA Enrique on July 07, 2021 9:35 AM Name Total midazolam 1mg/mL 2 mg fentaNYL (SUBLIMAZE) injection 100 mcg lidocaine 2% 80 mg propofol (DIPRIVAN) injection 10 mg/mL vial 200 mg propofol (DIPRIVAN) 10 mg/mL 155.04 mg dexamethasone 4mg/mL 4 mg ondansetron 2mg/mL 4 mg ceFAZolin (ANCEF) intermittent infusion 2 g in 100 mL dextrose PRE-MIX 2 g dexmedetomidine (PRECEDEX) in NS syringe (4 mcg/mL) 12 mcg ketamine injection 10 mg/mL 25 mg HYDROmorphone (DILAUDID) injection 0.2 mg 0.5 mg LR 600 mL Agents Name NO HELIOX O2 N2O Air Exp Sevoflurane Exp Isoflurane Exp Desflurane Exp N2O Ins Sevoflurane Ins Isoflurane Ins Desflurane O2 Auxiliary Blood No blood administrations on file. Lines, Drains, and Airways Type Details Placement Removal PICC Single Lumen Left 07/06/21 1649 by 08/08/21 1015 by Hui Hicks RN Urethral Catheter 07/07/21 0057 by 07/08/21 1445 by Ethan Dodd RN Supraglottic Airway Placement Date: 07/07/21 0822 by 07/07/21 09 17 by 07/07/21; Placement Irene Dickinson Fellegy, Mattilyn A, Time: 821 (created FARZANA MAC APRN, CRNA via procedure documentation); Airway Type: Standard LMA; Mask Ventilation: 0; LMA Size: 4; Airway Brand: Air-Q; Attempts: 1 Packing 07/07/21; 0903; 07/07/21 0903 by 07/23/21 1655 b y Right, Lateral; Monica Vallejo RN Inpatient, Nurse Ankle; Other (Comment) (3 pieces black wound vac sponge); 3; 07/23/21; 1655 Incision/Surgical Site 07/07/21; 0912; 07/07/21 0912 by 08/15/21 1200 by Right; Ankle; Monica Vallejo RN HenscheLiza 08/15/21; Sadaf dHez RN documented in this encounter Social History Tobacco [...] at Date Recorded Female 01/14/2020 10:57 AM TOP LIFT COMPRESSER documented as of this encounter OR Notes Anesthesia Postprocedure Evaluation - Roosevelt Doan MD - 07/07/2021 10:11 AM CDT Patient: Stephani King Procedure: Procedure(s): IRRIGATION AND DEBRIDEMENT, FOOT and ankle, wound vac exchange Anesthesia Type: General Note: Disposition: Admission; Inpatient Postop Pain Control: Challenging Challenges/Interventions: Multimodal therapy PONV: Neuro/Psych: Uneventful Sign Out: Acceptable/Baseline neuro status Airway/Respiratory: Uneventful Sign Out: Acceptable/Baseline resp. status CV/Hemodynamics: Uneventful Sign Out: Acceptable CV status; No obvious hypovolemia; No obvious fluid overload Other NRE: DID A NON-ROUTINE EVENT OCCUR? Last vitals: Vitals Value Taken Time BP 173/132 07/07/21 1000 Temp 36.8 ??C (98.2 ??F) 07/07/21 0925 Pulse 93 07/07/21 1010 Resp 35 07/07/21 1010 SpO2 96 % 07/07/21 1010 Vitals shown include unvalidated device data. Electronically Signed By: Roosevelt Doan MD July 07, 2021 10:11 AM Anesthesia Procedure Notes - Irene Dickinson APRN CRNA - 07/07/2021 8:21 AM CDTAssociated Order(s): Airway Airway Patient location during procedure: OR Staff - CEMENT WORKER: Irene Dickinson APRN CRNA Performed By: CEMENT WORKER Consent for Airway Urgency: elective Indications and Patient Condition Indications for airway management: andrzej-procedural Induction type:intravenous Mask difficulty assessment: 0 - not attempted Final Airway Details Final airway type: supraglottic airway Supraglottic Airway Details Type: LMA Brand: Air-Q LMA size: 4 Post intubation assessment Placement verified by: capnometry, equal breath sounds and chest rise Number of attempts at approach: 1 Number of other approaches attempted: 0 Secured with: silk tape Ease of procedure: easy Dentition: Intact and Unchanged Anesthesia Preprocedure Evaluation - Roosevelt Doan MD - 07/07/2021 7:04 AM CDT Anesthesia Pre-Procedure Evaluation Patient: Stephani King : 1980 Procedure : Procedure(s): IRRIGATION AND DEBRIDEMENT, FOOT and ankle, wound vac exchange Past Medical History: Diagnosis Date ??? Alcohol [...] So Luciano MD; Location: [facility] OR ??? CONCESSION SUPERVISOR SURGERY ??? ORTHOPEDIC SURGERY ??? THORACIC SURGERY No Known Allergies Social History Tobacco Use ??? Smoking status: Current Every Day Smoker Packs/day: 0.25 Years: 10.00 Pack years: 2.50 Types: Cigarettes ??? Smokeless tobacco: Never Used ??? Tobacco comment: 5-8 cigarettes a day Substance Use Topics ??? Alcohol use: Not Currently Comment: sober since 08/2020 Wt Readings from Last 1 Encounters: 02/28/19 83.6 kg (184 lb 4.9 oz) Physical Exam Airway Mallampati: I TM distance: > 3 FB Neck ROM: full Mouth opening: > 3 cm Respiratory Devices and Support Dental Comment: Very poor dentition. (+) missing, chipped and other Cardiovascular cardiovascular exam normal Pulmonary pulmonary exam normal OUTSIDE LABS: CBC: Lab Results Component Value Date WBC 5.7 07/06/2021 WBC 4.9 01/11/2020 HGB 10.4 (L) 07/06/2021 HGB 13.6 01/11/2020 HCT 32.4 (L) 07/06/2021 HCT 39.5 01/13/2020 PLT 243 07/06/2021 PLT 119 (L) 01/11/2020 BMP: Lab Results Component Value Date NA 136 07/06/2021 NA 136 06/30/2021 POTASSIUM 3.9 07/06/2021 POTASSIUM 3.0 (L) 06/30/2021 CHLORIDE 104 07/06/2021 CHLORIDE 108 06/30/2021 CO2 28 07/06/2021 CO2 21 06/30/2021 BUN 7 07/06/2021 BUN 11 06/30/2021 CR 0.46 (L) 07/06/2021 CR 0.53 06/30/2021 GLC 133 (H) 07/06/2021 GLC 92 06/30/2021 COAGS: Lab Results Component Value Date PTT 36 07/06/2021 INR 1.39 (H) 07/06/2021 FIBR 398 12/25/2016 POC: Lab Results Component Value Date HCG Negative 01/11/2020 HCGS Negative 08/23/2018 HEPATIC: Lab Results Component Value Date ALBUMIN 2.1 (L) 07/06/2021 PROTTOTAL 7.2 07/06/2021 ALT 39 07/06/2021 AST 73 (H) 07/06/2021 GGT 1,700 (H) 01/13/2020 ALKPHOS 206 (H) 07/06/2021 BILITOTAL 1.3 07/06/2021 OTHER: Lab Results Component Value Date PH 7.35 12/24/2016 MACARENA 8.7 07/06/2021 MAG 2.0 01/11/2020 LIPASE 145 02/28/2019 TSH 3.44 01/13/2020 CRP 65.0 (H) 07/06/2021 SED 97 (H) 07/06/2021 Anesthesia Plan ASA Status: 3 NPO Status: NPO Appropriate Anesthesia Type: General. - Airway: LMA Induction: Intravenous, Propofol. Maintenance: Balanced. Consents Anesthesia Plan(s) and associated risks, benefits, and realistic alternatives discussed. Questions answered and patient/community engagement representative(s) expressed understanding. - Discussed: - Discussed with: Patient - Extended Intubation/Ventilatory Support Discussed: No. - Patient is DNR/DNI Status: No Use of blood products discussed: No . Postoperative Care Pain management: IV analgesics, Oral pain medications, Multi-modal analgesia. PONV prophylaxis: Dexamethasone or Solumedrol, Ondansetron (or other 5HT-3) Comments: H&P reviewed: Unable to attach H&P to encounter due to EHR limitations. H&P Update: appropriate H&P reviewed, patient examined. No interval changes since H&P (within 30 days). Roosevelt Doan MD documented in this encounter Miscellaneous Notes Anesthesia Care Transfer Note - Irene Dickinson APRN CEMENT WORKER - 07/07/2021 9:39 AM CDT Patient: Stephani King Procedure: Procedure(s): IRRIGATION AND DEBRIDEMENT, FOOT and ankle, wound vac exchange Diagnosis: Ankle abscess [L02.419] Diagnosis Additional Information: No value filed. Anesthesia Type: General Note: Oropharynx: oropharynx clear of all foreign objects and spontaneously breathing Level of Consciousness: awake Oxygen Supplementation: face mask Level of Supplemental Oxygen (L/min / FiO2): 8 Independent Airway: airway patency satisfactory and stable [...] understanding Vitals: Vitals Value Taken Time BP 158/96 07/07/21 0930 Temp 36.5 Pulse 94 07/07/21 0938 Resp 17 07/07/21 0938 SpO2 94 % 07/07/21 0938 Vitals shown include unvalidated device data. Electronically Signed By: Irene Dickinson APRN CRNA July 07, 2021 9:39 AM documented in this encounter Plan of Treatment Upcoming Encounters Date Type Specialty Care Team Description 11/15/2021 Office Visit Wound Care Luis Camara DPM [address] [place] [address] (Wo rk) documented as of this encounter Procedures Procedure Name Priority Date/Time Associated Comments Diagnosis ANE AIRWAY Routine 07/07/2021 8:21 AM Results f or this SUPRAGLOTTIC CDT procedure are i n PERFORMABLE the results section. documented in this encounter Results ANE AIRWAY SUPRAGLOTTIC PERFORMABLE (07/07/2021 8:21 AM CDT) Narrative Irene Dickinson APRN CRNA - 022 8:21 AM CDT Irene Dickinson APRN CRNA ? 07/07/2021 ??8:22 AM Airway ? Patient location during procedure : OR Staff - ? CEMENT WORKER: Irene Dickinson APRN C RNA ? Performed By: CEMENT WORKER Consent for Airway ? Urgency: elective Indications and Patient Condition ? Indications for airway management : andrzej-procedural ? Induction type:intravenous ? Mask difficulty assessment: 0 - n ot attempted Final Airway Details ? Final airway type: supraglottic a irway Supraglottic Airway Details ? Type: LMA ? Brand: Air-Q ? LMA size: 4 Post intubation assessment ? Placement verified by: capnometry , equal breath sounds and chest rise ? Number of attempts at approach: 1 ? Number of other approaches attemp kris: 0 ? Secured with: silk tape ? Ease of procedure: easy ? Dentition: Intact and Unchanged Roosevelt Doan MD [place] ANESTHESIA documented in this encounter Visit Diagnoses Not on filedocumented in this encounter Administered Medications Inactive Administered Medications - up to 3 most recent administrations Medication Order MAR Action Action Date Dose Rate Site ceFAZolin (ANCEF) intermittent New Bag 07/09/2021 8:37 AM CDT 2 g 200 mL/hr infusion 2 g in 100 mL dextrose PRE-MIX STAT, 2 g, Intravenous, EVERY 8 HOURS, First dose on Fri07/06/21 at 1530, Indications: Bacteremia New Bag 07/09/2021 12:33 AM CDT 2 g 200 mL/hr New Bag 07/08/2021 4:06 PM CDT 2 g 200 mL/hr dexamethasone (DECADRON) injection Given 07/07/2021 8:03 AM CDT 4 mg Intravenous, PRN, Administer over 1 Minutes, Starting on 07/07/21 at 0803, Anesthesia Intra-op dexmedetomidine (PRECEDEX) 4 mcg/mL in NS Given 07/07/2021 8:23 AM CDT 12 mcg PRE-MIX Intravenous, PRN, Starting on 07/07/21 at 0823, Anesthesia Intra-op fentaNYL (PF) (SUBLIMAZE) injection Given 07/07/2021 9:31 AM CDT 50 mcg Intravenous, PRN, Administer over 3-5 Minutes, Starting on 07/07/21 at 0800, Anesthesia Intra-op Given 07/07/2021 8:00 AM CDT 50 mcg HYDROmorphone (DILAUDID) injection 0.2 m g Given 07/07/2021 8:47 AM CDT 0.25 mg 0.2 mg, Intravenous, EVERY 2 HOURS PRN, other, pain control or improvement in physical function. Hold dose for analgesic side effects., Starting on Fri07/06/21 at 1400, Notify provider to assess for uncontrolled pain or analgesic side effects. Hold while on SIZING SPRAYER or with regular IV opioid dosing Given 07/07/2021 8:36 AM CDT 0.25 mg ketamine (KETALAR) injection Given 07/07/2021 8:27 AM CDT 25 mg Intravenous, PRN, Administer over 2-5 Minutes, Starting on 07/07/21 at 0827, Anesthesia Intra-op lactated ringers infusion New Bag 07/07/2021 7:57 AM CDT Intravenous, CONTINUOUS PRN, Anesthesia Intra-op, Starting on 07/07/21 at 0757, Until 07/07/21 at 0935 lidocaine 2% injection (MDV) Given 07/07/2021 8:03 AM CDT 80 mg Intravenous, PRN, Starting on 07/07/21 at 0803, Anesthesia Intra-op midazolam (VERSED) injection Given 07/07/2021 7:58 AM CDT 2 mg Intravenous, Administer over 2 Minutes, PRN, Starting on 07/07/21 at 0758, Anesthesia Intra-op ondansetron (ZOFRAN) injection Given 07/07/2021 8:15 AM CDT 4 mg Intravenous, PRN, Administer over 2-5 Minutes, Starting on 07/07/21 at 0815, Anesthesia Intra-op propofol (DIPRIVAN) injection 10 mg/mL v ial Given 07/07/2021 8:03 AM CDT 200 mg Intravenous, PRN, Starting on 07/07/21 at 0803, Anesthesia Intra-op propofol (DIPRIVAN) injection New Bag 07/07/2021 8:28 AM 50 mc g/kg/min 24.48 mL/hr 10 mg/mL vial CDT Intravenous, CONTINUOUS PRN, Starting on 07/07/21 at 0828, Anesthesia Intra-op documented in this encounter Additional Health Concerns Assessment Noted Time PHQ-9 Depression Total Score: 2 12/15/2020 1:07 PM CDT documented as of this encounter Care Teams Airplane Designer Relationship Specialty Start Date End Date Juanis Levi PCP - General Addiction Medicine 06/29/21 [address] [place] [address] Stephani Pina, FARZANA MEMS DEVICE SCIENTIST Assigned PCP 02/25/[address] [place] [address] documented as of this encounter
--- OUTSIDE RECORDS SUMMARY | 2021-11-10 00:38 | XMS_ITS | Encounter Summary ---
:1980 Author Organization [facility] Address [address] [place] [address] Care Team Providers Name Role Phone Clinic, [facility] Primary Care Provide r Stephani Pina FARZANA TRANSIT OPERATIONS SUPERVISOR Unavailable [phone] Encounter Details Date Type Department Care Team Description 08/16/2020 Travel Social History Tobacco Use Types Packs/Day [...] at Date Recorded Female 01/14/2020 10:57 AM HATCHERY EMPLOYEE COVID-19 Exposure Response Date Recorded In the last month, have you been in contact with No / Unsure 08/16/2020 11:17 AM CDT someone who was confirmed or suspected to have Coronavirus / COVID-19? documented as of this encounter Plan of Treatment Upcoming Encounters Date Type Specialty Care Team Description 11/15/2021 Office Visit Wound Care Luis Camara, [place]VIN [address] [place] [address] (Wo rk) documented as of this encounter Visit Diagnoses Not on filedocumented in this encounter Additional Health Concerns Assessment Noted Time PHQ-9 Depression Total Score: 6 12/27/2019 9:38 AM HATCHERY EMPLOYEE documented as of this encounter Care Teams Stem Teacher Relationship Specialty Start Date End Date Clinic, [facility] PCP - General 01/20/18 06/28/[address] [place] [address] [id number] Stephani Pina APRN TRANSIT OPERATIONS SUPERVISOR Assigned PCP 01/30/20 12/30/[address] [place] [phone] documented as of this encounter
--- OUTSIDE RECORDS SUMMARY | 2021-11-10 00:38 | XMS_ITS | Encounter Summary ---
:1980 Author Organization [facility] Address [address] [place] [address] Care Team Providers Name Role Phone Clinic, [facility] Primary Care Provide r Stephani Pina FARZANA BELLMAN Unavailable Encounter Details Date Type Department Care Team Description 10/25/2020 Travel Social History Tobacco Use Types Packs/Day [...] at Date Recorded Female 01/14/2020 10:57 AM ELEVATOR EXAMINER AND ADJUSTER COVID-19 Exposure Response Date Recorded In the last month, have you been in contact with No / Unsure 10/25/2020 10:49 AM CDT someone who was confirmed or suspected to have Coronavirus / COVID-19? documented as of this encounter Plan of Treatment Upcoming Encounters Date Type Specialty Care Team Description 11/15/2021 Office Visit Wound Care Luis Camara DPM [address] [place] [address] (Wo rk) documented as of this encounter Visit Diagnoses Not on filedocumented in this encounter Additional Health Concerns Assessment Noted Time PHQ-9 Depression Total Score: 6 12/27/2019 9:38 AM ELEVATOR EXAMINER AND ADJUSTER documented as of this encounter Care Teams Behavioral Geneticist Relationship Specialty Start Date End Date Clinic, [facility] PCP - General 01/20/18 06/28/[address] [place] [address] Stephani Pina APRN BELLMAN Assigned PCP 01/30/20 12/30/[address] [place] [address] [phone] documented as of this encounter
--- OUTSIDE RECORDS SUMMARY | 2021-11-10 00:38 | XMS_ITS | Encounter Summary ---
:1980 Author Organization [place] Address [address] [place] [address] Care Team Providers Name Role Phone Clinic, [facility] Primary Care Provide r Stephani Pina FARZANA ELECTRONICS PROCESSOR Unavailable [phone] Reason for Visit Reason Onset Date Comments Labs Only 02/29/2020 [facility] in [facility]. Encounter Details Date Type Department Care Team Description 02/29/2020 Telephone [facility] Inocencio Newberry Labs Only ([facility] JIMBO Jesus [facility] in [address] [place] [address] [phone] Social History Tobacco Use Types Packs/Day Years [...] at Date Recorded Female 01/14/2020 10:57 AM NEON GLASS BLOWER COVID-19 Exposure Response Date Recorded In the last month, have you been in contact with No / Unsure 02/28/2020 9:23 AM NEON GLASS BLOWER someone who was confirmed or suspected to have Coronavirus / COVID-19? documented as of this encounter Miscellaneous Notes Telephone Encounter - Ann Marie Ramsey - 02/29/2020 4:25 PM CST Lab orders faxed. Patient notified. Hannah Gilmore LPN [facility] Call [facility] Phone Message May a detailed message be left on voicemail: yes Reason for Call: Order(s): Other: Reason for requested: Pt is requesting for her lab orders to be sent to the [facility] in [facility] Date needed: jesus Provider name: Dr. Newberry Action Taken: Message routed to: [facility] hep Travel Screening: Not Applicable GLASS BLOWER documented in this encounter Plan of Treatment Upcoming Encounters Date Type Specialty Care Team Description 11/15/2021 Office Visit Wound Care Luis Camara DPM [address] [place], [place] [phone] (Wo rk) documented as of this encounter Visit Diagnoses Diagnosis Chronic hepatitis C without hepatic coma (H) - Primary documented in this encounter Additional Health Concerns Assessment Noted Time PHQ-9 Depression Total Score: 6 12/27/2019 9:38 AM NEON GLASS BLOWER documented as of this encounter Care Teams Scale Operator Relationship Specialty Start Date End Date [facility], [facility] Medical PCP - General 01/20/18 06/28/21 [address] [place], [place] [phone] Stephani Pina APRN ELECTRONICS PROCESSOR Assigned PCP 01/30/20 12/30/20 [address] [facility] [address] [place] [address] documented as of this encounter
--- OUTSIDE RECORDS SUMMARY | 2021-11-10 00:38 | XMS_ITS | Encounter Summary ---
:1980 Author Organization [place] Address [address] [place] [address] Care Team Providers Name Role Phone Clinic, [facility] Primary Care Provide r Stephani Pina FARZANA CONSTRUCTION PIT WORKER Unavailable [phone] Reason for Visit Reason Onset Date Comments *-*INCOMING RECORDS*-* 03/03/2020 Encounter Details Date Type Department Care Team Description 03/03/2020 PRE VISIT [facility] Inocencio Newberry *-*INCOMIN G RECORDS*-* Hepatology Clinic JIMBO Jesus [address] [address] [phone] Social History Tobacco Use Types Packs/Day Years [...] at Date Recorded Female 01/14/2020 10:57 AM CUSTOMER CARE 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 COVID-19 Exposure Response Date Recorded In the last month, have you been in contact with No / Unsure 02/28/2020 9:23 AM CUSTOMER CARE 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 someone who was confirmed or suspected to have Coronavirus / COVID-19? documented as of this encounter Miscellaneous Notes Telephone Encounter - Logan Carie L - 03/01/2020 8:17 AM CST RECORDS RECEIVED FROM: Internal Appt Date: 03.03.2020 NOTES STATUS DETAILS OFFICE NOTE from referring provider Internal 02.28.2020 Juanis Levi MD OFFICE NOTES from other specialists Care Everywhere 08.25.2019 Leslie Rasheed D.O. [place] DISCHARGE SUMMARY from hospital Internal 07.04.2018 Joycelyn Espinal MD 12.07.2016 So Luciano MD MEDICATION LIST Internal / CE LIVER BIOSPY (IF APPLICABLE) PATHOLOGY REPORTS N/A IMAGING ENDOSCOPY (IF AVAILABLE) N/A COLONOSCOPY (IF AVAILABLE) N/A ULTRASOUND LIVER N/A CT OF ABDOMEN N/A MRI OF LIVER N/A FIBROSCAN, US ELASTOGRAPHY, FIBROSIS SCAN, MR ELASTOGRAPHY N/A LABS HEPATIC PANEL (LIVER PANEL) Care Everywhere In[place] 08.27.2018 07.04.2018 BASIC METABOLIC PANEL Internal 08.23.2018 COMPLETE METABOLIC PANEL Internal 01.11.2020 COMPLETE BLOOD COUNT (CBC) Internal 01.11.2020 INTERNATIONAL NORMALIZED RATIO (INR) Internal 01.11.2020 HEPATITIS C ANTIBODY Internal 10.10.2016 HEPATITIS C VIRAL LOAD/PCR N/A HEPATITIS C GENOTYPE N/A HEPATITIS B SURFACE ANTIGEN Internal 10.10.2016 HEPATITIS B SURFACE ANTIBODY Internal 12.13.2016 HEPATITIS B DNA QUANT LEVEL N/A HEPATITIS B CORE ANTIBODY Internal 12.13.2016 OMER CARE 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 documented in this encounter Plan of Treatment Upcoming Encounters Date Type Specialty Care Team Description 11/15/2021 Office Visit Wound Care Luis Camara DPM [address] [place] [address] (Wo rk) documented as of this encounter Visit Diagnoses Not on filedocumented in this encounter Additional Health Concerns Assessment Noted Time PHQ-9 Depression Total Score: 6 12/27/2019 9:38 AM CUSTOMER CARE 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 documented as of this encounter Care Teams Electric Locomotive Crane Operator Relationship Specialty Start Date End Date Clinic, [facility] PCP - General 01/20/18 06/28/[address] [place] [address] [phone] Stephani Pina APRN CONSTRUCTION PIT WORKER Assigned PCP 01/30/20 12/30/[address] [place] [address] [address] [place] [address] documented as of this encounter
--- OUTSIDE RECORDS SUMMARY | 2021-11-10 00:38 | XMS_ITS | Encounter Summary ---
:1980 Author Organization [place] Address [address] [place] [address] Care Team Providers Name Role Phone Clinic, [facility] Primary Care Provide r Stephani Pina FARZANA AUTO CAMP ATTENDANT Unavailable [phone] Encounter Details Date Type Department Care Team Description 03/12/2021 Office Visit [facility] Edgar Alfredo Opioid us e disorder, Clinic Ashly Gauthier MD severe, in sustained [address] [place] remission, on [address] 700 maintenance therapy [place], [place] (H) (Prim jaime Dx) [phone] [...] at Date Recorded Female 01/14/2020 10:57 AM EVENT AV OPERATOR COVID-19 Exposure Response Date Recorded In the last month, have you been in contact with No / Unsure 03/05/2021 9:18 AM EVENT AV OPERATOR someone who was confirmed or suspected to have Coronavirus / COVID-19? documented as of this encounter Progress Notes Edgar Alfredo MD - 03/12/2021 9:20 AM CST NO SHOW T AV OPERATOR documented in this encounter Plan of Treatment Upcoming Encounters Date Type Specialty Care Team Description 11/15/2021 Office Visit Wound Care Luis Camara DPM [address] [place], [place] [phone] (Wo rk) documented as of this encounter Visit Diagnoses Diagnosis Opioid use disorder, severe, in sustaine d remission, on maintenance therapy (H) - Primary documented in this encounter Additional Health Concerns Assessment Noted Time PHQ-9 Depression Total Score: 2 12/15/2020 1:07 PM CDT documented as of this encounter Care Teams Metal Model Builder Relationship Specialty Start Date End Date Clinic, [facility] PCP - General 01/20/18 06/28/[address] [place] [address] Stephani Pina APRN AUTO CAMP ATTENDANT Assigned PCP 02/25/21 [facility] [address] [address] documented as of this encounter
--- OUTSIDE RECORDS SUMMARY | 2021-11-10 00:38 | XMS_ITS | Encounter Summary ---
:1980 Author Organization [place] Address [address] [place] [address] Care Team Providers Name Role Phone Clinic, [facility] Primary Care Provide r Stephani Pina FARZANA LIFE INSURANCE SALES AGENT Unavailable [phone] Encounter Details Date Type Department Care Team Description 02/28/2020 Travel Social History Tobacco Use Types Packs/Day [...] at Date Recorded Female 01/14/2020 10:57 AM BOTTLE SORTER COVID-19 Exposure Response Date Recorded In the last month, have you been in contact with No / Unsure 02/28/2020 9:23 AM BOTTLE SORTER someone who was confirmed or suspected to have Coronavirus / COVID-19? documented as of this encounter Plan of Treatment Upcoming Encounters Date Type Specialty Care Team Description 11/15/2021 Office Visit Wound Care Luis Camara DPM [address] [place] [address] (Wo rk) documented as of this encounter Visit Diagnoses Not on filedocumented in this encounter Additional Health Concerns Assessment Noted Time PHQ-9 Depression Total Score: 6 12/27/2019 9:38 AM BOTTLE SORTER documented as of this encounter Care Teams Licensed Massage Practitioner Relationship Specialty Start Date End Date Clinic, [facility] PCP - General 01/20/18 06/28/[address] [place] [address] Stephani Pina APRN LIFE INSURANCE SALES AGENT Assigned PCP 01/30/20 12/30/[address] [place] [address] [id number] documented as of this encounter
--- OUTSIDE RECORDS SUMMARY | 2021-11-10 00:38 | XMS_ITS | Encounter Summary ---
:1980 Author Organization [place] Address [address] [place] [address] Care Team Providers Name Role Phone Clinic, [facility] Primary Care Provide r Stephani Pina FARZANA FIRE PROTECTION ENGINEER Unavailable [phone] Encounter Details Date Type Department Care Team Description 09/27/2020 Travel Social History Tobacco Use Types Packs/Day [...] at Date Recorded Female 01/14/2020 10:57 AM WIRE PULLER COVID-19 Exposure Response Date Recorded In the last month, have you been in contact with No / Unsure 09/27/2020 10:05 AM CDT someone who was confirmed or suspected to have Coronavirus / COVID-19? documented as of this encounter Plan of Treatment Upcoming Encounters Date Type Specialty Care Team Description 11/15/2021 Office Visit Wound Care Luis Camara, [place] [address] [place] [address] (Wo rk) documented as of this encounter Visit Diagnoses Not on filedocumented in this encounter Additional Health Concerns Assessment Noted Time PHQ-9 Depression Total Score: 6 12/27/2019 9:38 AM WIRE PULLER documented as of this encounter Care Teams Primary Care Pediatrician Relationship Specialty Start Date End Date Clinic, [facility] PCP - General 01/20/18 06/28/[address] [place] [address] [phone] Stephani Pina APRN FIRE PROTECTION ENGINEER Assigned PCP 01/30/20 12/30/[address] [place] [address] [phone] documented as of this encounter
--- OUTSIDE RECORDS SUMMARY | 2021-11-10 00:38 | XMS_ITS | Encounter Summary ---
:1980 Author Organization [place] Address [address] [place] [address] Care Team Providers Name Role Phone Clinic, [facility] Primary Care Provide r Stephani Pina FARZANA AUDIOMETRIST Unavailable [phone] Encounter Details Date Type Department Care Team Description 12/08/2020 Travel Social History Tobacco Use Types Packs/Day [...] at Date Recorded Female 01/14/2020 10:57 AM ACQUISITION COST ESTIMATOR COVID-19 Exposure Response Date Recorded In the last month, have you been in contact with No / Unsure 12/08/2020 10:54 AM CDT someone who was confirmed or suspected to have Coronavirus / COVID-19? documented as of this encounter Plan of Treatment Upcoming Encounters Date Type Specialty Care Team Description 11/15/2021 Office Visit Wound Care Luis Camara DPM [address] [place] [address] (Wo rk) documented as of this encounter Visit Diagnoses Not on filedocumented in this encounter Additional Health Concerns Assessment Noted Time PHQ-9 Depression Total Score: 6 12/27/2019 9:38 AM ACQUISITION COST ESTIMATOR documented as of this encounter Care Teams Retail Business Development Manager Relationship Specialty Start Date End Date Clinic, [facility] PCP - General 01/20/18 06/28/[address] [place] [address] Stephani Pina APRN AUDIOMETRIST Assigned PCP 01/30/20 12/30/[address] [place] [address] [phone] documented as of this encounter
--- OUTSIDE RECORDS SUMMARY | 2021-11-10 00:38 | XMS_ITS | Encounter Summary ---
:1980 Author Organization [place] Address [address] [place] [address] Care Team Providers Name Role Phone Clinic, [facility] Primary Care Provide r Stephani Pina FARZANA PERINATAL COORDINATOR Unavailable Encounter Details Date Type Department Care Team Description 01/31/2020 Travel Social History Tobacco Use Types Packs/Day [...] at Date Recorded Female 01/14/2020 10:57 AM TENTERING MACHINE FEEDER COVID-19 Exposure Response Date Recorded In the last month, have you been in contact with No / Unsure 01/31/2020 9:14 AM TENTERING MACHINE FEEDER someone who was confirmed or suspected to have Coronavirus / COVID-19? documented as of this encounter Plan of Treatment Upcoming Encounters Date Type Specialty Care Team Description 11/15/2021 Office Visit Wound Care Luis Camara DPM [address] [place] [address] (Wo rk) documented as of this encounter Visit Diagnoses Not on filedocumented in this encounter Additional Health Concerns Assessment Noted Time PHQ-9 Depression Total Score: 6 12/27/2019 9:38 AM TENTERING MACHINE FEEDER documented as of this encounter Care Teams Breakfast Attendant Relationship Specialty Start Date End Date Clinic, [facility] PCP - General 01/20/18 06/28/[address] [place] [address] [phone] Stephani Pina APRN PERINATAL COORDINATOR Assigned PCP 01/30/20 12/30/[address] [place] [address] [place], [place] [phone] documented as of this encounter
--- OUTSIDE RECORDS SUMMARY | 2021-11-10 00:38 | XMS_ITS | Encounter Summary ---
:1980 Author Organization [place] Address [address] [place] [address]. [place] [address] Care Team Providers Name Role Phone Clinic, [facility] Primary Care Provide r Stephani Pina DRILL PRESS OPERATOR FOR METAL MANAGER OF PLANNING Unavailable Reason for Visit Reason Onset Date Comments Erroneous encounter-disregard 03/26/2021 follow up last seen 08/23/2020 Encounter Details Date Type Department Care Team Description 03/26/2021 PRE VISIT [facility] Landon Warren, Brian [facility] MD Luis Fernando encounter-disregard [address] PWB (follow up last seen [address] [facility] [address] 08/23/2020) [place] [address] [phone] (Wo rk) Social History Tobacco Use Types [...] at Date Recorded Female 01/14/2020 10:57 AM RECEIVING COORDINATOR COVID-19 Exposure Response Date Recorded In the last month, have you been in contact with No / Unsure 03/05/2021 9:18 AM RECEIVING COORDINATOR someone who was confirmed or suspected to have Coronavirus / COVID-19? documented as of this encounter Miscellaneous Notes Telephone Encounter - Carie Ford - 03/16/2021 11:11 AM CST disregard IVING COORDINATOR documented in this encounter Plan of Treatment Upcoming Encounters Date Type Specialty Care Team Description 11/15/2021 Office Visit Wound Care Luis Camara DPM [address] [place] [address] (Wo rk) documented as of this encounter Visit Diagnoses Not on filedocumented in this encounter Additional Health Concerns Assessment Noted Time PHQ-9 Depression Total Score: 2 12/15/2020 1:07 PM CDT documented as of this encounter Care Teams Cob Sawyer Relationship Specialty Start Date End Date Clinic, [facility] PCP - General 01/20/18 06/28/[address] [place] [address] [phone] Stephani Pina APRN MANAGER OF PLANNING Assigned PCP 02/25/[address] [place] [address] documented as of this encounter
--- OUTSIDE RECORDS SUMMARY | 2021-11-10 00:38 | XMS_ITS | Encounter Summary ---
:1980 Author Organization [place] Address [address] [place] [address]. [place] [address] Care Team Providers Name Role Phone Clinic, [facility] Primary Care Provide r Stephani Pina FARZANA GROCERY CLERK STOCKING Unavailable [phone] Encounter Details Date Type Department Care Team Description 06/21/2020 Telephone [facility] Generic, [facility] [place], MD [address] [place] [phone] Social History Tobacco Use Types Packs/Day Years [...] at Date Recorded Female 01/14/2020 10:57 AM SHOT GRINDER OPERATOR COVID-19 Exposure Response Date Recorded In the last month, have you been in contact with No / Unsure 07/12/2020 11:10 AM CDT someone who was confirmed or suspected to have Coronavirus / COVID-19? documented as of this encounter Miscellaneous Notes Telephone Encounter - Migel, Brittnee - 06/21/2020 7:45 AM CDT ----- Message from OLGA Deshpande sent at 06/20/2020 4:37 PM CDT ----- Regarding: Add appointments for client at [facility] Patient Name: ??See above Location of programming: [facility] Start Date: 06/20/20 Group: ([id number] T 5:30PM Provider: OLGA Baron Number of visits to be scheduled: 4 Length/Duration of Appointment in minutes: 120 Visit Type (VIDEO/TELEPHONE/IN-PERSON): Video ([id number]) Additional notes: Thanks OLGA Baron documented in this encounter Plan of Treatment Upcoming Encounters Date Type Specialty Care Team Description 11/15/2021 Office Visit Wound Care Luis Camara DPM [address] [place] [address] (Wo rk) documented as of this encounter Visit Diagnoses Diagnosis Alcohol abuse, continuous - Primary Nondependent alcohol abuse, continuous d rinking behavior documented in this encounter Additional Health Concerns Assessment Noted Time PHQ-9 Depression Total Score: 6 12/27/2019 9:38 AM SHOT GRINDER OPERATOR documented as of this encounter Care Teams Hand Flatwork Finisher Relationship Specialty Start Date End Date Clinic, [facility] PCP - General 01/20/18 06/28/[address] [place] [address] Stephani Pina, FARZANA GROCERY CLERK STOCKING Assigned PCP 01/30/20 12/30/[address] [place] [address] documented as of this encounter
--- OUTSIDE RECORDS SUMMARY | 2021-11-10 00:38 | XMS_ITS | Encounter Summary ---
:1980 Author Organization [facility] Address [address] [facility] [place] [address] Care Team Providers Name Role Phone Deann Pina APRN [employer] Unavailable Juanis Mckenzie Primary Care Provider Reason for Visit Auth/Cert Specialty Diagnoses / Procedures Referred By Contact Refer red To Contact Med Surg Diagnoses Complicated Osteomyelitis Ur Ortho [address] [place] [address] Phone: Fax: Referral ID Status Reason Start Date Expiration Date Visits Requ ested Visits Authorized [id number] 1 1 Encounter Details Date Type Department Care Team Description 07/07/2021 Surgery [facility] Wm Olivera IRRIGATION AND PeriOp Services MD Flo DEBRIDEMENT, FOOT and [address] [place] [address] [address] [facility] ankle[place] [address] [place] [address] exchange [phone] (Wo rk) Surgery Details Date/Time Status Location OR Service Patient Class Case Case Trauma Class Type Case? 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 documented as of this encounter Last Filed Vital Signs Vital Sign Reading Time Taken Comments Blood Pressure 126/75 07/07/2021 12:20 AM CDT Pulse 79 07/07/2021 12:20 AM CDT Temperature 38.2 ??C (100.8 ??F) 07/07/2021 12:20 AM CDT Respiratory Rate 16 07/07/2021 12:20 AM CDT Oxygen Saturation 96% 07/07/2021 12:20 AM CDT Inhaled Oxygen Concentration - - Weight - - Height - - Body Mass Index - - documented in this encounter Discharge Summaries Elizabeth Howell MD - 07/23/2021 7:40 AM CDT [facility] Hospitalist Discharge Summary Date of Admission: 07/06/2021 Date of Discharge: 07/23/2021 Discharging Provider: Elizabeth Howell MD Discharge Service: Hospitalist Service, [facility] TEAM 17 Discharge Diagnoses # R ankle wound, osteomyelitis?? # MSSA bacteremia # Irritant versus allergic contact dermatitis ## HCV chronic infection # Transaminitis??- improving.?? # Alcohol use disorder.?? #Acute encephalopathy, suspect toxic metabolic. #Hypokalemia, hypomagnesemia #Hypothyroidism #Chronic pain #Opiate dependency #Pressure ulcers right buttock, gluteal fold #Physical deconditioning #Tobacco use disorder #Anemia, acute on chronic. Follow-ups Needed After Discharge Follow-up Appointments Adult [facility] Follow-up and recommended labs and tests Follow up with Dr Camara or Morgan with Podiatry in 1-2 weeks. Clinic phone number is [phone] Follow up with Plastic Surgery in 2 weeks. Follow up with infectious disease 4-6 weeks. Follow-up Labs: Weekly CBC w diff, BMP, CRP. Please have labs faxed to ID clinic. Appointments on [place] and/or [facility] (with [facility] or [facility] provider or service). Call [phone] if you haven't heard regarding these appointments [...] anxiety, and tobacco abuse??admitted on 07/06/21 from [facility] for further care of R ankle osteomyelitis by Orthopedics, Plastics, and Infectious Disease.? 07/19: Per patient request: Increased Subutex dose to 8 mg 3 times daily, SOIL SCIENCE PROFESSOR dose. Schedule Robaxin 750 3 times daily. [...] epic for recommendations.. ??>Pain control: Currently controlled. -Continue??SOIL SCIENCE PROFESSOR??Suboxone 8mg tid ??; scheduled APAP 975mg TID, [...] allergenic polyurethane foam dressings (Mepitac tape, Sorbiview, [id number]) over occlusive adhesive semipermeable gauze dressings; WOC [...] improving.?? # Alcohol use disorder.?? HCV quant 603171??at OSH. ??AST 117, ALT 44, and AP [...] with periods of confusion early in admission. ??[place] to be??toxic vs metabolic??2/2 ?withdrawal, infection, sepsis. [...] Stay INTERNAL MEDICINE ADULT IP CONSULT FOR [facility] [place] [facility]SU PHYSICAL THERAPY ADULT IP CONSULT OCCUPATIONAL THERAPY ADULT IP CONSULT INFECTIOUS DISEASE [facility] [place] ADULT IP CONSULT ORTHOPAEDIC SURGERY ADULT/PEDS IP [...] minutes discharging this patient. Elizabeth Howell MD [facility] MED SURG ORTHOPEDIC [address] [place] [phone] Physical Exam Vital Signs: Temp: 98.6 ??F [...] performing Friday and Friday VAC changes Adult [facility] Follow-up and recommended labs and tests Follow up with Dr Camara or Morgan with Podiatry in 1-2 weeks. Clinic phone number is [phone] Follow up with Plastic Surgery in 2 weeks. Follow up with infectious disease 4-6 weeks. Follow-up Labs: Weekly CBC w diff, BMP, CRP. Please have labs faxed to ID clinic. Appointments on [place] and/or [facility] (with [facility] or [facility] provider or service). Call [phone] if you haven't heard regarding these appointments [...] MD Echo Complete Value LVEF 55-60% Narrative [id number]^BUTCH^JAIME [facility] [address] [place] [address] Name: DEANN KING : 1980 Study Date: 07/08/2021 12:07 PM Age: 40 yrs Gender: Female Patient Location: [facility] Reason For Study: Endocarditis Ordering Physician: JAIME [...] Qty: 90 tablet, Refills: 0 Comments: JAMES: [id number] Associated Diagnoses: Opioid use disorder, severe, in [...] Rae MD - 07/21/2021 12:29 PM CDT [facility] Hospitalist Discharge Summary Date of Admission: 07/06/2021 Date of Discharge: 07/21/2021 Discharging Provider: Jaime Rae MD Discharge Service: Hospitalist Service, GOLD TEAM 17 Discharge Diagnoses # R ankle wound, osteomyelitis?? # MSSA bacteremia # Irritant versus allergic contact dermatitis ## HCV chronic infection # Transaminitis??- improving.?? # Alcohol use disorder.?? #Acute encephalopathy, suspect toxic metabolic. #Hypokalemia, hypomagnesemia #Hypothyroidism #Chronic pain #Opiate dependency #Pressure ulcers right buttock, gluteal fold #Physical deconditioning #Tobacco use disorder #Anemia, acute on chronic. Follow-ups Needed After Discharge Follow-up Appointments Adult [facility] Follow-up and recommended labs and tests Follow up with Dr Camara or Morgan with Podiatry in 1-2 weeks. Clinic phone number is [phone] Follow up with Plastic Surgery in 2 weeks. Follow up with infectious disease 4-6 weeks. Follow-up Labs: Weekly CBC w diff, BMP, CRP. Please have labs faxed to ID clinic. Appointments on [place] and/or [facility] (with [facility] or [facility] provider or service). Call [phone] if you haven't heard regarding these appointments [...] anxiety, and tobacco abuse??admitted on 07/06/21 from [facility] for further care of R ankle osteomyelitis by Orthopedics, Plastics, and Infectious Disease.? 07/19: Per patient request: Increased Subutex dose to 8 mg 3 times daily, SOIL SCIENCE PROFESSOR dose. Schedule Robaxin 750 3 times daily. [...] epic for recommendations.. ??>Pain control: Currently controlled. -Continue??SOIL SCIENCE PROFESSOR??Suboxone 8mg tid ??; scheduled APAP 975mg TID, [...] allergenic polyurethane foam dressings (Mepitac tape, Sorbiview, [id number]) over occlusive adhesive semipermeable gauze dressings; WOC [...] improving.?? # Alcohol use disorder.?? HCV quant 948424??at OSH. ??AST 117, ALT 44, and AP [...] with periods of confusion early in admission. ??[place] to be??toxic vs metabolic??2/2 ?withdrawal, infection, sepsis. [...] Stay INTERNAL MEDICINE ADULT IP CONSULT FOR [facility] [place] MEDSU PHYSICAL THERAPY ADULT IP CONSULT OCCUPATIONAL THERAPY ADULT IP CONSULT INFECTIOUS DISEASE [facility] [place] ADULT IP CONSULT ORTHOPAEDIC SURGERY ADULT/PEDS IP [...] minutes discharging this patient. Jaime Rae MD [facility] MED SURG ORTHOPEDIC [address] [place] [phone] Physical Exam Vital Signs: Temp: 98.3 ??F [...] performing Friday and Friday VAC changes Adult [facility] Follow-up and recommended labs and tests Follow up with Dr Camara or Morgan with Podiatry in 1-2 weeks. Clinic phone number is [phone] Follow up with Plastic Surgery in 2 weeks. Follow up with infectious disease 4-6 weeks. Follow-up Labs: Weekly CBC w diff, BMP, CRP. Please have labs faxed to ID clinic. Appointments on [place] and/or [facility] (with [facility] or [facility] provider or service). Call [phone] if you haven't heard regarding these appointments [...] MD Echo Complete Value LVEF 55-60% Narrative [id number]^[facility] [address] [place] [address] Name: DEANN KING : 1980 Study Date: 07/08/2021 12:07 PM Age: 40 yrs Gender: Female Patient Location: [facility] Reason For Study: Endocarditis Ordering Physician: JAIME [...] Qty: 90 tablet, Refills: 0 Comments: JAMES: [id number] Associated Diagnoses: Opioid use disorder, severe, in [...] with vac drape prior to applying sponge ballroom dance instructor to assess integrity of dressing and ensure [...] from the original note were not included. [facility] Nurse Inpatient Assessment Today's Assessment: [...] to Vashedressings until appropriate antibiotics identified. Updated Sintia Parsons PA-C RN and Charge nurse Maricruz LAM. 07/13: [...] control prior to re-starting VAC. Marilu Mar, STRAIGHT KNIFE MACHINE CUTTER with Ortho will order 4% topical lidicaine solution to use topically for VAC placement 07/18/2021. In addition, [facility] will use a silver impregnated sponge to [...] Wound location: Right lateral ankle Change Days: Mon/Fri/Fri by [facility] RN Supplies (including all accessories) used: medium Silver (Ag) impregnated foam , 1 white foam Cleanse with Vashe prior to replacing VAC Suction setting: -125 Methods used: Window paned all periwound skin with vac drape prior to applying sponge ballroom dance instructor to assess integrity of dressing and ensure [...] 19 Lisa Chandler RN, CWOCN Dept. Pager: [phone] Dept. Office Number: [phone] Tiffanie Figueroa RN - 07/23/2021 10:17 AM CDT Care Management Discharge Note Discharge Date: 07/23/2021 Discharge Disposition: TCU PAS Confirmation Code: [id number] Education Provided on the Discharge Plan: yes Persons Notified of Discharge Plans: patient and mother, So. Patient/Family in Agreement with the Plan: yes Handoff Referral Completed: Yes Additional Information: Plan for patient to discharge to TCU at 4pm today pending staffing. RNCC available as needed. Update 1400: Patient will discharge to TCU at 1600. ticket sales supervisor and bedside RN aware. Bedside RN toarrange transport at 1600. RNCC available as needed. Dr. Mckenzie with [facility] will prescribe Suboxone at discharge. Tiffanie Machado RN, BSN Biomedical Equipment Specialist, 5 Ortho Pager Jaime Rae MD - 07/22/2021 8:58 AM CDT [facility] Medicine Progress Note - Hospitalist Service, ONUR TEAM 17 Date of Admission: 07/06/2021 Assessment & Plan 40 year old female??with past medical history significant for opioid use disorder,??alcohol use disorder,??HCV, hypothyroidism, depression, anxiety, and tobacco abuse??admitted on 07/06/21 from [facility] for further care of R ankle osteomyelitis by Orthopedics, Plastics, and Infectious Disease.? Today's changes: 07/22/2021 Overall doing better. No new concern/changes by me Aw TCU. See discharge summary 07/21 07/19:??Per patient request: Increased Subutex dose to 8 mg 3 times daily, SOIL SCIENCE PROFESSOR dose. ??Schedule Robaxin 750 3 times daily. [...] epic for recommendations.. ?>Pain control: Currently controlled. -Continue??SOIL SCIENCE PROFESSOR??Suboxone ??8mg tid ??; scheduled APAP 975mg TID, [...] allergenic polyurethane foam dressings (Mepitac tape, Sorbiview, [id number]) over occlusive adhesive semipermeable gauze dressings; WOC [...] improving.?? # Alcohol use disorder.?? HCV quant 883606??at OSH. ??AST 117, ALT 44, and AP [...] with periods of confusion early in admission. ??[place] to be??toxic vs metabolic??2/2 ?withdrawal, infection, sepsis. [...] wound cares ? # Anemia??- Hgb 9.8. ??6/4. ??Possibly??acute blood loss plus??chronic illness, liver dysfunction. [...] care was discussed with the Bedside Nurse, Biomedical Equipment Specialist/Photo Mask Processor and Patient. Jaime Rae MD Hospitalist Service, [facility] TEAM [address] [place] [address] Securely message with the [email or web address] Console (learn more here) Text page via [facility] Paging/Directory Please see signed in provider for [...] ??? venlafaxine 300 mg Oral Daily Elizabeth Johnson RN - 07/22/2021 8:23 AM CDT Care Management Follow Up Length of Stay (days): 16 Expected Discharge Date: 07/23/2021 Concerns to be Addressed: Discharge planning Patient plan of care discussed at interdisciplinary rounds: Yes Anticipated Discharge Disposition: TCU Anticipated Discharge Services: TCU Anticipated Discharge DME: Wound vac Education Provided on the Discharge Plan: yes Patient/Family in Agreement with the Plan: yes Additional Information: [facility] is unable to accept patient today due to staffing. Admissions requested that patient bebrought over there tomorrow at 1100. Notified charge nurse. Updated patient and she verbalized understanding and agreement to plan. MICHAEL Mehta RNCC RN Biomedical Equipment Specialist Office: [phone] Pager: [phone] Cali Zavaleta MD - 07/21/2021 12:17 PM [...] to route this note to the appropriate [facility] pools: [facility] INFECTIOUS DISEASE ADULT SHIVAM MEJIA [facility] Emergency Department/ID Clinic Information: [address] [place] [address], Clinic [address] [place] [address] Cali Bullock MD on 07/21/2021 at 12:19 PM Cali Bullock MD - 07/21/2021 12:03 PM CDT Images from the original note were not included. 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 Negativesince then. Confirmed with lab by [...] and worse about 2 weeks before admissionto [facility]. Also had periodic fever for 1-2 weeks - MRI right ankle wo contrast 06/29/21 - extensive tibiotalar erosions with large joint effusion and synovitis . - 06/30/21 ([facility]) - Right lateral ankle deep abscess I&D, [...] subcutaneous tissue without exposed bone. - 07/02/21 ([facility]) - Right lateral ankle I&D, right lateral calcaneus hardware removal and ankle wound vac exchange. With repeat debridement the wound extended down to the bone and the hardware. All 5 screws were removed and plate was removed. The peroneal tendon and calcaneous were exposed, The defect now measured 7x 4 cm with a depth of 2 cm. - 07/04/21 ([facility]) - Right lateral ankle I&D and wound vac replacement. - 07/07/21 ([facility]) - Right ankle I&D and wound vac [...] VL since then), whot was admitted to [facility] from 06/28/21 - 07/06/21 with sepsis and [...] patient was then transferred to the [facility] on 07/06/21 for further management due to [...] with the Staph simulans being oxacillin susceptible. Cail Bullock MD Infectious Diseases [phone] Interval events Patient overall feels okay. Tolerating [...] abuse. ?? The patient was admitted to [facility] from 06/28/04 - 07/06/21 with sepsis and [...] The patient was then transferred to the [facility] ([facility]) on 07/06/21 for further management due to [...] I&D and wound vac replacement. - 07/07/21 ([facility] - Right ankle I&D and wound vac [...] costs discussed: Not applicable PAS Confirmation Code: [id number] Patient/family educated on Medicare website which has current facility and service quality ratings: Yes, [facility] Education Provided on the Discharge Plan: yes Persons Notified of Discharge Plans: pt, ortho ticket sales supervisor Adam, Dr Rae Patient/Family in Agreement with the Plan: yes Handoff Referral Completed: Yes Additional Information: SW met with pt and reviewed discharge plan, including referral to Senior Link[facility] line for PAS/RR. Ptwas very groggy so may not recall conversation. SW updated ticket sales supervisor Adam and Dr. Rae with anticipated discharge to [facility] today @ 1:30. YADIRA Diamond MSW [facility] Friday Photo Mask Processor Text paging available through [employer] on [employer] search SOCIAL WORK ROUTER 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 PAGER [phone] Friday ONLY! ROUTER 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 COVERAGE AFTER 1600 Alyce Israel MSW - [...] the Plan: yes Referrals Placed by CM/SW: Pt on wait list for [facility] Private pay costs discussed: Not applicable Additional Information: SW called [facility] admissions, was told they do not have any anticipated discharges over weekend. They will contact JACKIE should something change and a bed become available. ADDENDUM 10:23: Carpet Mechanic informed by Leslie Parikh, rehabilitation counsellor that there may be a discharge from TCU this afternoon and could possibly accept pt for admissions at 1:30. She is requesting Rapid Covid Test. JACKIE informed Ortho ticket sales supervisor Adam, who will request rapid COVID Test. JACKIE completed PAS/RR on line: [id number]. Pt updated. YADIRA Diamond MSW [facility] Friday Photo Mask Processor Text paging available through [employer] on [place] Intr[employer]et - search SOCIAL WORK ROUTER 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 PAGER [phone] Friday ONLY! ROUTER 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 COVERAGE AFTER 1599 Paulino Ybarra RN - 07/21/2021 7:51 AM [...] Rae MD - 07/20/2021 10:56 AM CDT [facility] Medicine Progress Note - Hospitalist Service, GOLD TEAM 17 Date of Admission: 07/06/2021 Assessment & Plan 40 year old female??with past medical history significant for opioid use disorder,??alcohol use disorder,??HCV, hypothyroidism, depression, anxiety, and tobacco abuse??admitted on 07/06/21 from [facility] for further care of R ankle osteomyelitis by Orthopedics, Plastics, and Infectious Disease.? Today's changes: 07/20/2021 Overall doing better. Rash, pruritus: improving. Pain controlled. No new concern/changes by me Aw tcu Ortho, ID, Dermatology, WOCN- following. 07/19: Per patient request: Increased Subutex dose to 8 mg 3 times daily, SOIL SCIENCE PROFESSOR dose. Schedule Robaxin 750 3 times daily. [...] vac. WOCN consult. ?? - Pain control: -Continue??SOIL SCIENCE PROFESSOR??Suboxone 8mg tid ??; scheduled APAP 975mg TID, [...] improving.?? # Alcohol use disorder.?? HCV quant 381852??at OSH. ??AST 117, ALT 44, and AP [...] with periods of confusion early in admission. ??[place] to be??toxic vs metabolic??2/2 ?withdrawal, infection, sepsis. [...] care was discussed with the Bedside Nurse, Biomedical Equipment Specialist/Photo Mask Processor and Patient. Jaime Rae MD Hospitalist Service, [facility] TEAM [address] [place] [address] Securely message with the [email or web address] Console (learn more here) Text page via [employer] Paging/Directory Please see signed in provider for [...] from the original note were not included. [facility] Nurse Inpatient Assessment Today's Assessment: [...] with vac drape prior to applying sponge ballroom dance instructor to assess integrity of dressing and ensure [...] Emily Macias RN BSN CWOCN Dept. Pager: [phone] Dept. Office Number: [phone] Jaime Rae MD - 07/19/2021 12:42 PM CDT [facility] Medicine Progress Note - Hospitalist Service, [facility] TEAM 17 Date of Admission: 07/06/2021 Assessment & Plan 40 year old female??with past medical history significant for opioid use disorder,??alcohol use disorder,??HCV, hypothyroidism, depression, anxiety, and tobacco abuse??admitted on 07/06/21 from [facility] for further care of R ankle osteomyelitis by Orthopedics, Plastics, and Infectious Disease.? Today's changes: 07/19/2021 Overall doing better. Rash, pruritus: improving. Per patient request: Increased Subutex dose to 8 mg 3 times daily, SOIL SCIENCE PROFESSOR dose. Schedule Robaxin 750 3 times daily. [...] vac. WOCN consult. ?? - Pain control: -Continue??SOIL SCIENCE PROFESSOR??Suboxone 8mg tid ??; scheduled APAP 975mg TID, [...] improving.?? # Alcohol use disorder.?? HCV quant 826516??at OSH. ??AST 117, ALT 44, and AP [...] with periods of confusion early in admission. ??[place] to be??toxic vs metabolic??2/ ?withdrawal, infection, sepsis. [...] care was discussed with the Bedside Nurse, Biomedical Equipment Specialist/Photo Mask Processor and Patient. Jaime Rae MD Hospitalist Service, [address] Securely message with the [email or web address] Console (learn more here) Text page via [facility] Paging/Directory Please see signed in provider for [...] the wait list. Patient and her mom, stefan Rizzo. RNCC will continue to follow. Tiffanie Machado RN, BSN Biomedical Equipment Specialist, 5 Ortho Pager Jah Thompson MD - 07/19/2021 7:31 AM CDT Orthopaedic Surgery Progress Note 07/19/2021 S: VSS, AF. Tolerating diet. Voiding spontaneously. Ambulating independently. Working with PT/OT. Denies fevers or chills. [facility] was able to place wound vac at [...] Rae MD - 07/18/2021 1:47 PM CDT [facility] Medicine Progress Note - Hospitalist Service, ONUR TEAM 17 Date of Admission: 07/06/2021 Assessment & Plan 40 year old female??with past medical history significant for opioid use disorder,??alcohol use disorder,??HCV, hypothyroidism, depression, anxiety, and tobacco abuse??admitted on 07/06/21 from [facility] for further care of R ankle [...] vac. WOCN consult. ?? - Pain control: continue??SOIL SCIENCE PROFESSOR??Suboxone 4mg Q4H (was taking this way at [...] improving.?? # Alcohol use disorder.?? HCV quant 809335??at OSH. ??AST 117, ALT 44, and AP [...] with periods of confusion early in admission. ??[place] to be??toxic vs metabolic??2/2 ?withdrawal, infection, sepsis. [...] managed on??buprenorphine??since 2009. ??On buprenorphine 4mg QID SOIL SCIENCE PROFESSOR, increased to Q4H at OSH due to [...] care was discussed with the Bedside Nurse, Biomedical Equipment Specialist/Photo Mask Processor and Patient. Jaime Rae MD Hospitalist Service, [facility] TEAM [address] [place] [address] Securely message with the [email or web address] Console (learn more here) Text page via [facility] Paging/Directory Please see signed in provider for [...] from the original note were not included. [facility] [facility] Nurse Inpatient Assessment Today's Assessment: [...] with vac drape prior to applying sponge ballroom dance instructor to assess integrity of dressing and ensure [...] plan of care with: Patient and Nurse [facility] Nurse follow-up plan:Friday/ Notify WO if wound(s) deteriorate. Nursing to notify the Provider(s) and re-consult the [facility] Nurse if new skin concern. DATA: Current [...] 19 Lisa Chandler RN, CWOCN Dept. Pager: [phone] Dept. Office Number: [phone] Cali Bullock MD - 07/18/2021 12:44 PM CDT Images from the original note were not included. 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 negativesince then. Confirmed with lab by [...] and worse about 2 weeks before admissionto [facility]. Also had periodic fever for 1-2 weeks - MRI right ankle wo contrast 06/29/21 - extensive tibiotalar erosions with large joint effusion and synovitis . - 06/30/21 ([facility]) - Right lateral ankle deep abscess I&D, [...] subcutaneous tissue without exposed bone. - 07/02/21 ([facility]) - Right lateral ankle I&D, right lateral calcaneus hardware removal and ankle wound vac exchange. With repeat debridement the wound extended down to the bone and the hardware. All 5 screws were removed and plate was removed. The peroneal tendon and calcaneous were exposed, The defect now measured 7x 4 cm with a depth of 2 cm. - 07/04/21 ([facility]) - Right lateral ankle I&D and wound vac replacement. - 07/07/21 ([facility]) - Right ankle I&D and wound vac [...] VL since then), whot was admitted to [facility] from 06/28/21 - 07/06/21 with sepsis and [...] patient was then transferred to the [facility] ([facility]) on 07/06/21 for further management due to [...] clinical course Cali Bullock MD Infectious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 Organization Address City/State/ZIP Code Phon e Number UR LABORATORY [facility] [place] [phone] Care Lab [address] [facility], Room M309 Fungal or Yeast Culture Routine (07/11/2021 6:18 PM CDT) P athologist Signature Culture No Growth GINETTE 08/08/2021 [...] Code Phon e Number UU IDD LABORATORY [facility] [place] [place] [phone] Diag. Lab [address] [facility], Room D297 Wound Aerobic Bacterial Culture Routine [...] Code Phon e Number UU IDD LABORATORY [facility] [place] [place] [address] Diag. Lab [address] [facility], Room D297 (ABNORMAL) Anaerobic Bacterial Culture Routine (07/11/2021 6:18 PM CDT) [facility] gist Method Time Signature Culture No anaerobic [...] Code Phon e Number UU IDD LABORATORY [facility] [place] [place] [address] Diag. Lab [address] [facility], Room D297 Extra Purple Top Tube (07/11/2021 [...] City/State/ZIP Code Phon e Number UR LABORATORY [facility] [place] [address] Care Lab [address] [facility], Room M309 Creatinine (07/11/2021 9:09 AM CDT) athologist Signature Creatinine 0.58 0.52 - 1.04 07/11/2021 UR LABORATORY mg/dL 9:35 AM CDT GFR Estimate >90 >60 07/11/2021 UR LABORATORY mL/min/1.73 9:35 AM CDT m2 Comment: Effective February 06, 2021 eGF Rcr in adults is calculated using the 2020 CKD-EPI creatinine equation which includ es age and gender (Paul et al., NEJM, DOI: 10.1056/[id number]) Specimen Anatomical Collection Method / Collection Time Recei isak Time (Source) Location / Volume Laterality Blood STRUCTURE OF RIGHT Venipuncture / 07/11/2021 9:09 05/2 06/2021 9:16 UPPER LIMB / Unknown AM CDT AM CDT Unknown Jaime Rae MD LAB - BLOOD ORDERABLES Performing Organization Address City/State/ZIP Code Phon [place] [address] Care Lab [address] [facility], Room M309 (ABNORMAL) CBC with platelets and differential (07/10/2021 7:26 AM CDT) [facility] gist Method Time Signature WBC Count 7.9 [...] City/State/ZIP Code Phon [place] [address] Care Lab [address] [facility], Room M309 (ABNORMAL) CRP inflammation (07/10/2021 7:26 AM CDT) [facility] Method Time Signature CRP Inflammation 59.0 (H) 0.0 - 8.0 07/10/2021 UR LABORATOR Y mg/L 8:08 AM CDT Specimen Anatomical Collection Method / Collection Time Recei isak Time (Source) Location / Volume Laterality Blood STRUCTURE OF LEFT Venipuncture / 07/10/2021 7:26 07/10 7:49 HAND / Unknown Unknown AM CDT AM CDT Jensen Ulloa MD LAB - BLOOD ORDERABLES Performing Organization Address City/[facility]/ZIP [facility] Phon [place] [address] [address] [place] [address], Room M309 (ABNORMAL) CRP inflammation (07/10/2021 5:25 AM CDT) [facility] gist Method Time Signature CRP Inflammation 60.0 (H) 0.0 - 8.0 07/10/2021 UR LABORATOR Y mg/L 6:50 AM CDT Specimen Anatomical Collection Method / Collection Time Recei isak Time (Source) Location / Volume Laterality Blood STRUCTURE OF RIGHT Venipuncture / 07/10/2021 5:25 05/05/2021 6:17 UPPER LIMB / Unknown AM CDT AM CDT Unknown Jaime Rea MD LAB - BLOOD ORDERABLES Performing Organization Address City/[facility] Phon e [place] [address] Care Lab [address] [place] [address], Room M309 (ABNORMAL) CBC with platelets (07/10/2021 5:25 AM CDT) Patholo gist Method Time Signature WBC Count 8.2 [...] City/State/ZIP Code Phon e [place] [phone] Care Lab [address] [facility], Room M309 (ABNORMAL) UA with Microscopic reflex to Culture (07/09/2021 5:33 PM CDT) [facility] Time Signature Color Urine Yellow Colorless, 07/09/2021 UR LABORATORY Straw, 7:00 PM CDT Light Yellow, Yellow Appearance Urine Clear Clear 07/09/2021 UR LABORATOR Y 7:00 PM CDT Glucose Urine Negative Negative 07/09/2021 UR LABORATORY mg/dL 7:00 PM CDT Bilirubin Urine Negative Negative 07/09/2021 UR LABORATORY 7:00 PM CDT Ketones Urine Negative Negative 07/09/2021 UR LABORATORY mg/dL 7:00 PM CDT Specific [place] 1.018 1.003 - 07/09/2021 UR LABORATOR Y [...] City/State/ZIP Code Phon e Number UR LABORATORY [facility] [place] [address] Care Lab [address] [facility], Room M309 Blood Culture Arm, Right (07/09/2021 12:22 PM CDT) athologist Signature Culture [...] Code Phon e Number UU IDD LABORATORY [facility] [place] [place] [address] Diag. Lab [address] [facility], Room D297 Blood Culture Arm, Left (07/09/2021 [...] Code Phon e Number UU IDD LABORATORY [facility] [place] [place] [address] Diag. Lab [address] [facility], Room D297 (ABNORMAL) CRP inflammation (07/09/2021 12:22 PM CDT) Patholo gist Method Time Signature CRP Inflammation 43.0 (H) 0.0 - 8.0 07/09/2021 UR LABORATOR Y mg/L 12:51 PM CDT Specimen Anatomical Collection Method Collection Time Receive d Time (Source) Location / / Volume Laterality Blood STRUCTURE OF LEFT VAD(CVC, PICC) / 07/09/2021 12:22 UPPER LIMB / Unknown PM CDT 12:30 PM CDT Unknown Jaime Rae MD LAB - BLOOD ORDERABLES Performing Organization Address City/[facility]/ZIP Code Phon e [place] [address] Care [address] [place] [address], Room M309 ALT (07/09/2021 12:22 PM CDT) [...] City/State/ZIP Code Phon [place] [address] [address] [place] [address], Room M309 (ABNORMAL) Basic metabolic panel (07/09/2021 12:22 PM CDT) [facility] Sodium 139 133 - 144 [...] and gender (Paul et al., NEJ, DOI: 10.1056/[id number]) Specimen Anatomical Collection Method Collection Time Receive d Time (Source) Location / / Volume Laterality Blood STRUCTURE OF LEFT VAD(CVC, PICC) / 07/09/2021 12:22 UPPER LIMB / Unknown PM CDT 12:30 PM CDT Unknown Jaime Rae MD LAB - BLOOD ORDERABLES Performing Organization Address City/State/ZIP Code Phon e Number UR LABORATORY [facility] [place] [address] Care Lab [address] [facility], Room M309 (ABNORMAL) CBC with platelets (07/09/2021 [...] City/State/ZIP Code Phon [place] [address] Care Lab [address] [facility], Room M309 ECHO COMPLETE (07/08/2021 1:04 PM CDT) P athologist Signature LVEF 55-60% CARDIOLOGY RESULTS Anatomical Region Laterality Modality Echocardiography Specimen (Source) Anatomical Collection Method Collection Time Re ceived Time Location / / Volume Laterality 07/08/2021 12:07 PM CDT Narrative 07/08/2021 2:15 PM CDT [id number]^BUTCH^JAIME [facility] Echocardiography Laboratory [address] [place] [address] Name: DEANN KING : 1980 Study Date: 07/08/2021 12:07 PM Age: 40 yrs Gender: Female Patient Location: [facility] [place] Reason For Study: Endocarditis Ordering Physician: JAIME [...] Procedure Note Matheus Jo MD - 07/08/2021 [id number]^BUTCH^JAIME [facility] Echocardiography Laboratory [address] [place] [address] Name: DEANN KING : 1980 Study Date: 07/08/2021 12:07 PM Age: 40 yrs Gender: Female Patient Location: [facility] [facility] Reason For Study: Endocarditis Ordering Physician: JAIME [...] CBC with platelets (07/08/2021 7:14 AM CDT) [facility] gist Method Time Signature WBC Count 7.0 4.0 [...] City/State/ZIP Code Phon [place] [address] Care [address] [place] [address], Room M309 (ABNORMAL) Erythrocyte sedimentation rate auto (07/08/2021 7:14 AM CDT) [facility] gist Method Time Signature Erythrocyte 102 (H) [...] City/State/ZIP Code Phon [place] [address] Care [address] [place] [address], Room [facility] (ABNORMAL) CRP inflammation (07/08/2021 7:14 AM CDT) [facility] gist Method Time Signature CRP Inflammation 57.0 [...] City/State/ZIP Code Phon e [place] [address] Care [address] [place] [address], Room M309 US Abdomen Complete (07/07/2021 3:33 [...] Code Phon e Number UU IDD LABORATORY [facility] [place] [phone] Diag. Lab [address] [facility], Room D297 Blood Culture Line, venous (07/07/2021 [...] Code Phon e Number UU IDD LABORATORY [facility] [place] [place] [address] Diag. Lab [address] [facility], Room D297 (ABNORMAL) Phosphorus (07/07/2021 12:35 PM [...] LAB - BLOOD ORDERABLES Performing Organization Address City/[facility]/ZIP Code Phon e [place] [address] [place] [address], Room M309 Magnesium (07/07/2021 12:35 PM CDT) [...] City/State/ZIP Code Phon [place] [address] [address] [place] [address], Room M309 (ABNORMAL) CBC with platelets (07/07/2021 12:35 PM CDT) [facility] Method Time Signature WBC Count 8.6 [...] City/State/ZIP Code Phon e [place] [address] Care Lab [address] [facility], Room M309 (ABNORMAL) Comprehensive metabolic panel (07/07/2021 12:35 PM CDT) [facility] Method Time Signature Sodium 137 133 [...] and gender (Paul et al., NEJM, DOI: 10.1056/[id number]) Specimen Anatomical Collection Method Collection Time Receive d Time (Source) Location / / Volume Laterality Blood VENOUS LINE / VAD(CVC, PICC) / 07/07/2021 12:35 2021 1:01 Unknown Unknown PM CDT PM CDT Nathaniel Tinoco MD LAB - BLOOD ORDERABLES Performing Organization Address City/State/ZIP Code Phon [place] [address] Care Lab [address] [facility], Room M309 (ABNORMAL) Tissue Aerobic Bacterial Culture Routine (07/07/2021 8:43 AM CDT) [facility] Method Time Signature Culture 1+ Staphylococcus [...] AM CDT Susceptibility testing requested by Dr. Fraga Pager [phone]. This specimen was received on a swab. [...] Code Phon e Number UU IDD LABORATORY [facility] [place] [place] [address] Diag. Lab [address] [facility], Room D297 Anaerobic Bacterial Culture Routine (07/07/2021 8:43 AM CDT) [facility] Method Time Signature Culture No anaerobic [...] MICRO GENERAL ORDER JEFFERY Performing Organization Address [facility] Phon e Number UU IDD LABORATORY [facility] [place] [place] [address] Diag. Lab [address] [facility], Room D297 Tissue Aerobic Bacterial Culture Routine (07/07/2021 8:42 AM CDT) P athologist Signature Culture 1+ [...] MICRO GENERAL ORDER JEFFERY Performing Organization Address [facility] Code Phon e Number UU IDD LABORATORY [facility] [place] [place] [address] Diag. Lab [address] [facility], Room D297 Anaerobic Bacterial Culture Routine (07/07/2021 8:42 AM CDT) Patholo gist Method Time Signature [...] MICRO GENERAL ORDER JEFFERY Performing Organization Address [facility] Phon e Number UU IDD LABORATORY [facility] [place] [place] [address] Diag. Lab [address] [facility] D297 Wound Aerobic Bacterial Culture Routine (07/07/2021 [...] MICRO GENERAL ORDER JEFFERY Performing Organization Address [facility] Phon e Number UU IDD LABORATORY [facility] [place] [place] [address] [facility] Room D297 Anaerobic Bacterial Culture Routine (07/07/2021 [...] Code Phon e Number UU IDD LABORATORY [facility] [place] [place] [address] Diag. Lab [address] [facility], Room D297 Asymptomatic COVID-19 Virus (Coronavirus) by [...] exposure or clinical presentation sugges ts COVID-19. ??[facility] [employer] are certified under the Clinical Laborat ory Improvement Amendments of 1988 (CLIA-88) as qualified to perform moderate and/or high complexity laboratory testing. Ernesto Martínez MD LAB - MICRO GENERAL ORDERABL ES Performing Organization Address City/State/ZIP Code Phon [place] [address] Care Lab [address] [facility], Room M309 Blood Culture Arm, Left (07/06/2021 [...] Code Phon e Number UU IDD LABORATORY [facility] [place] [place] [address] Diag. Lab [address] [facility], Room D297 (ABNORMAL) Iron and iron binding [...] City/State/ZIP Code Phon e [place] [address] Care Lab [address] [facility], Room M309 (ABNORMAL) Hepatitis C RNA, Quantitative by PCR (07/06/2021 3:34 PM CDT) [facility] gist Method Time Signature Hepatitis C RNA 130,453 [...] Code Phon e Number UU IDD LABORATORY [facility] [place] [place] [address] Diag. Lab [address] [facility], Room D297 Adult Type and Screen (07/06/2021 3:34 PM CDT) [facility] Method Time Signature ABO/RH(D) B POS 07/06/2021 UR BLOOD 2:15 PM CDT BANK Antibody Negative Negative 07/06/2021 UR BLOOD Screen 2:15 PM CDT BANK SPECIMEN [id number] 07/06/2021 UR BLOOD EXPIRATION 2:15 PM CDT BANK DATE Specimen Anatomical Collection Method / Collection Time Recei isak Time (Source) Location / Volume Laterality Blood STRUCTURE OF RIGHT Venipuncture / 07/06/2021 3:34 05/2 4:06 UPPER LIMB / Unknown PM CDT PM CDT Unknown Jah Thompson MD LAB - BLOOD BANK TEST ORDER Performing Organization Address City/State/ZIP Code Phon e Number UR BLOOD BANK [facility] [place] [phone] Components Lab [address] [facility], Room M301 (ABNORMAL) Hepatic panel (07/06/2021 3:34 [...] City/State/ZIP Code Phon [place] [address] Care Lab [facility]0 [facility], Room M309 Blood Culture Arm, Right (07/06/2021 [...] Code Phon e Number UU IDD LABORATORY [facility] [place] [place] [address] Diag. Lab [address] [facility], Room D297 Partial thromboplastin time (07/06/2021 3:34 [...] LAB - BLOOD ORDERABLES Performing Organization Address City/[facility] Code Phon e [place] [address] [address] [place] [address], Room M309 (ABNORMAL) INR (07/06/2021 3:34 PM CDT) P athologist Signature INR 1.39 (H) 0.85 - 1.15 07/06/2021 UR LABORATORY 4:23 PM CDT Comment: Some International Normalized R atio (INR) results performed at the [facility] Acute Care Lab for patients 6 month [...] LAB - BLOOD ORDERABLES Performing Organization Address City/[facility]/ZIP Code Phon [place] [address] Care Lab [address] [place] [address], Room M309 (ABNORMAL) Erythrocyte sedimentation rate auto (07/06/2021 3:34 PM CDT) [facility] gist Method Time Signature Erythrocyte 97 (H) 0 - 20 07/06/2021 UR LABORATORY Sedimentation Rate mm/hr 4:35 PM CDT Specimen Anatomical Collection Method / Collection Time Recei isak Time (Source) Location / Volume Laterality Blood STRUCTURE OF RIGHT Venipuncture / 07/06/2021 3:34 05/2 4:06 UPPER LIMB / Unknown PM CDT PM CDT Unknown Jah Thompson MD LAB - BLOOD ORDERABLES Performing Organization Address City/[facility]/ZIP Code Phon [place] [phone] Care Lab [address] [place] [address], Room M309 (ABNORMAL) CRP inflammation (07/06/2021 3:34 PM CDT) [facility] iSOCO Method Time Signature CRP Inflammation 65.0 (H) 0.0 - 8.0 07/06/2021 UR LABORATOR Y mg/L 4:31 PM CDT Specimen Anatomical Collection Method / Collection Time Recei isak Time (Source) Location / Volume Laterality Blood STRUCTURE OF RIGHT Venipuncture / 07/06/2021 3:34 05/ 4:06 UPPER LIMB / Unknown PM CDT PM CDT Unknown Jah Thompson MD LAB - BLOOD ORDERABLES Performing Organization Address City/[facility]/ZIP Code Phon [place] [phone] Care Lab [address] [place] [address], Room M309 (ABNORMAL) Basic metabolic panel (07/06/2021 3:34 PM CDT) [facility] iSOCO Method Time Signature Sodium 136 133 - [...] and gender (Paul et al., NEJ, DOI: [id number]) Specimen Anatomical Collection Method / Collection Time Recei isak Time (Source) Location / Volume Laterality Blood STRUCTURE OF RIGHT Venipuncture / 07/06/2021 3:34 05/2 4:06 UPPER LIMB / Unknown PM CDT PM CDT Unknown Jah Thompson MD LAB - BLOOD ORDERABLES Performing Organization Address City/State/ZIP Code Phon [place] [phone] Care Lab [address] [facility], Room M309 (ABNORMAL) CBC with platelets (07/06/2021 3:34 PM CDT) [facility] gist Method Time Signature WBC Count 5.7 [...] STRUCTURE OF RIGHT Venipuncture / 07/06/2021 3:34 06/18 4:06 UPPER LIMB / Unknown PM CDT PM CDT Unknown Jah Thompson MD LAB - BLOOD ORDERABLES Performing Organization Address City/State/ZIP Code Phon [place] [address] Care Lab [address] [facility], Room M309 documented in this encounter Visit Diagnoses Diagnosis Osteomyelitis of right ankle, unspecifie d type (H) - Primary Anxiety Anxiety state, unspecified Alcohol use disorder, severe, dependence (H) Irritant dermatitis Contact dermatitis and other eczema, due to unspecified cause Ankle abscess Cellulitis and abscess of leg, except fo ot documented in this encounter Admitting Diagnoses Diagnosis [...] Given 07/22/2021 7:29 PM CDT 975 mg aspirin EC tablet 162 mg Given 07/23/2021 [...] 10:41 PM CDT 8 mg ceFAZolin (ANCEF) intermittent New Bag 07/23/2021 8:19 [...] Given 07/22/2021 8:30 AM CDT 20 mg fexofenadine (SRAVANTHI) tablet 180 mg Given 07/22/2021 7:29 PM CDT 180 mg 180 mg, Oral, DAILY, First dose (after last modification) on Fri07/18/21 at 2000 Given 07/21/2021 8:01 PM CDT 180 mg Given 07/20/2021 9:56 PM CDT 180 mg folic acid (FOLVITE) tablet 1 mg [...] Given 07/20/2021 9:55 PM CDT 300 mg hydrOXYzine (ATARAX) tablet 25 mg Given 07/21/2021 9:47 PM CDT 25 mg 25 mg, Oral, AT BEDTIME, First dose on Fri07/16/21 at 2200 Given 07/20/2021 9:55 PM CDT 25 mg Given 07/19/2021 10:18 PM CDT 25 mg hydrOXYzine (ATARAX) tablet 25-50 mg Given 07/22/2021 7:51 PM CDT 50 mg 25-50 mg, Oral, EVERY 6 HOURS PRN, other, anxiety, itching, adjuvant pain, Starting on Fri07/17/21 at 1531 Given 07/22/2021 1:00 PM CDT 50 mg Given 07/21/2021 3:04 PM CDT 50 mg lactulose (CHRONULAC) solution 20 g Given 07/23/2021 8:07 AM CDT 20 g 20 g, Oral, 2 TIMES DAILY, First dose (after last modification) on Fri07/15/21 at 2000 Given 07/22/2021 10:42 PM CDT 20 g Given 07/22/2021 8:31 AM CDT 20 g levothyroxine (SYNTHROID/LEVOTHROID) tablet Given 07/2021 6:47 AM CDT 125 mcg 125 mcg 125 mcg, Oral, EVERY MORNING BEFORE BREAKFAST, First dose on Fri07/07/21 at 0730, Separate oral administration of iron- or calcium-containing products and levothyroxine by at least 4 hours. Given 07/22/2021 8:30 AM CDT 125 mcg Given 07/21/2021 8:21 AM CDT 125 mcg lidocaine (XYLOCAINE) 4 % solution 50 mL Given 07/23/2021 1:26 PM CDT 50 mLs 50 mL, Topical, DAILY PRN, moderate pain (4-6), Starting on Fri07/20/21 at 0758, Apply to wound Given 07/20/2021 9:30 AM CDT 50 mLs melatonin tablet 5 mg Given 07/23/2021 2:21 AM CDT 5 mg 5 mg, Oral, AT BEDTIME PRN, sleep, Starting on Fri07/23/21 at 0136 methocarbamol (ROBAXIN) tablet 750 mg Given 07/23/2021 [...] Irritant. oxyCODONE (ROXICODONE) tablet 5-10 mg Given 07/23/2021 2:01 PM CDT 10 mg 5-10 mg, Oral, EVERY 6 HOURS PRN, moderate to severe pain, Starting on 07/15/21 at 1233, Start with lower dose. May increase to 10 mg as needed. Notify provider to assess for uncontrolled pain or analgesic side effects. Hold while on ELECTROMECHANICAL EQUIPMENT TESTER or with regular IV opioid dosing. Given 07/23/2021 8:18 AM CDT 10 mg Given 07/22/2021 10:41 PM CDT 10 mg polyethylene glycol (MIRALAX) Packet 17 g 17 [...] AM CDT 17 g senna-docusate (SENOKOT-S/PERICOLACE) Given 07/22/2021 7:29 PM C [...] lock the lumen. sodium chloride 0.9% (bottle) Given 07/07/2021 9:45 [...] AM CDT Given 07/20/2021 9:59 PM CDT venlafaxine (EFFEXOR XR) 24 hr capsule 3 00 mg Given 07/23/2021 8:07 AM CDT 300 mg 300 mg, Oral, DAILY, First dose on Fri07/07/21 at 0800 Given 07/22/2021 8:29 AM CDT 300 mg Given 07/21/2021 8:21 AM CDT 300 mg documented in this encounter Active and Recently Administered Medications Times are shown in CDT. Scheduled Medication Order 07/21/2021 07/22/202107/2307/23/2021 acetaminophen (TYLENOL) tablet 975 mg 0821 (Given - Pr ovider: Vin Sims, RN)1316 (Given - Provider: Vin Sims, RN)2000 (Given - Provider: Alisa Ceja RN) 08 (Given - Provider: Areli Schwartz RN) 1420 (Given - Provider: Areli Schwartz RN)1929 (Given - Provider: Yani Preciado RN) 08 (Given - Provider: Andrzej Hodge, GENARO)1401 (Given - Provider: Andrzej Hodge, GENARO) 975 mg, Oral, 3 TIMES DAILY, First [...] head RN) 0829 (Given - Provider: Areli Schwartz RN) 0807 (Given - Provider: Andrzej Hodge RN) 162 mg, Oral, DAILY, First dose on Fri07/08/21 at 0800, DO NOT C DANIELS. buprenorphine (SUBUTEX) sublingual tablet 8 mg 0447 (Nithya iven - Provider: Paulino Ybarra RN - Comment: wanted to take now vs 6am because she woke up for pain meds and wants to go back to sleep after)0600 (Canceled Entry - Provider: Paulino Ybarra RN)1316 (Given - Provider: Vin Sims RN) 0611 (Given - Provider: Alisa Ceja RN)1420 (Given - Provider: Areli Schwartz, GENARO)2241 (Given - Provider: Yani Preciado, GENARO) 0647 (Given - Provider: Alisa Ceja RN) 1401 (Given - Provider: Andrzej Hodge, GENARO) 8 mg, Sublingual, 3 TIMES DAILY, First d ose (after last modification) on Zoe 07/19/21 at 1400, 2pm, 10 pm. 6 am Give SUBLINGUAL. Place under the tongue and leave until completely dissolved. Patient should 214 (Given - Provider: Alisa eCja RN) not swallow or chew tablet. Patient quan uld not eat/drink until tablet is completely dissolved. ceFAZolin (ANCEF) intermittent infusion 2 g in 100 mL dextrose PRE-MIX 0046 (New Bag - Provider: Paulino Ybarra RN)0827 (New Bag - Provider: Vin Sims, GENARO)1504 (New Bag - Provider: Vin Sims, GENARO)2351 (New Bag - Provider: Alisa Ceja RN) 0834 (New Bag - Provider: Areli Schwartz, R N)1553 (New Bag - Provider: Yani Preciado, [...] 193 (Given - Provider: Yani Preciado, GENARO) 08 (Given - Provider: Andrzej Hodge RN) Topical, 2 TIMES DAILY, First dose on Fri07/17/21 at 1999, Apply to arm rash famotidine (PEPCID) tablet 20 mg 0822 (Given - Provide r: Vin Sims RN)2000 (Given - Provider: Alisa Ceja RN) 829 (Given - Provider: Areli Schwartz RN)1928 (Given - Provider: Yani Preciado RN) 08 (Given - Provider: Andrzej Hodge RN) 20 mg, Oral, 2 TIMES DAILY, First dose on Fri07/06/21 at 1999 fexofenadine (SRAVANTHI) tablet 180 mg 2000 (Given - Provider: Alisa Ceja RN) 1928 (Given - Provider: Yani Preciado RN) 180 mg, Oral, DAILY, First dose (after last modificati on) on Fri07/18/21 at 1999 folic acid (FOLVITE) tablet 1 mg 08 (Given - Provider: Norris Sims RN) 08 (Given - Provider: Areli Schwartz RN) 08 (Given - Provider: Andrzej Hodge RN) 1 mg, Oral, DAILY, First dose on Fri07/06/21 at 1600 gabapentin (NEURONTIN) capsule 300 mg 2146 (Given - Provider : Alisa Ceja RN) 2241 (Given - Provider: Yani Preciado RN) 300 mg, Oral, AT BEDTIME, First dose (af ter last modification) on Fri07/19/21 at 2200 hydrOXYzine (ATARAX) tablet 25 mg 2146 (Given - Provider: David Ceja RN) 2242 (Not Given - Provider: Yani Preciado RN - Reason: Other - Comment: too soon from last dose given) 25 mg, Oral, AT BEDTIME, First dose on Fri07/16/21 at 2200 lactulose (CHRONULAC) solution 20 g 825 (Not Given - Provider: Vin Sims RN - Reason: Patient/family refused)1958 (Not Given - Provider: Alisa Ceja RN - Reason: Patient/family refused) 0831 (Given - Provider: Areli Schwartz RN) 2242 (Given - Provider: Yani Preciado, GENARO) 0807 (Given - Provider: Andrzej Hodge, GENARO) 20 g, Oral, 2 TIMES DAILY, First dose (a fter last modification) on 07/15/21 at 2000 levothyroxine (SYNTHROID/LEVOTHROID) tablet 125 mcg 08 21 (Given - Provider: Vin Sims RN) 0830 (Given - Provider: Areli Schwartz RN) 0647 (Given - Provider: Alisa Ceja RN) 125 mcg, Oral, EVERY MORNING BEFORE VELIA KFAST, First dose on 07/07/21 at 0730, Separate oral administration of iron- or calcium-containing products and levothyroxine by at least 4 hours. methocarbamol (ROBAXIN) tablet 750 mg 0822 (Given - Pr ovider: Vin Sims RN)1316 (Given - Provider: Vin Sims RN)2000 (Given - Provider: Alisa Ceja RN) 0829 (Given - Provider: Areli Schwartz RN) 1420 (Given - Provider: Areli Schwartz RN)192 (Given - Provider: Yani Preciado, GENARO) 0807 (Given - Provider: Andrzej Hodge, GENARO)1401 (Given - Provider: Andrzej Hodge, GENARO) 750 mg, Oral, 3 TIMES DAILY, First dose (after last modification) on Zoe 07/19/21 at 1400 nicotine (NICODERM CQ) 14 MG/24HR 24 hr patch 1 patch 0820 (Patch/Med Removed - Provider: Vin Sims RN)0826 (Patch/Med Applied - Provider: Vin Sims RN) 0833 (Patch/Med Removed - Provider: David Schwartz [...] (Patch in Place - Provi nia: Paulino Ybarra, RN)1315 (Patch in Place - Provider: Vin Sims, RN)2152 (Patch in Place - Provider: Alisa Ceja, RN - Comment: L arm) 0602 (Patch in Place - Provider: Alisa eCja, RN)1423 (Patch in Place - Provider: Areli Schwartz, RN)2243 (Patch in Place - Provider: Yani Preciado RN) 0649 (Patch in Place - Provider: Alisa Ceja, GENARO)1402 (Patch in Place - Provider: Andrzej Hodge, GENARO) First dose on Fri07/18/21 at 1400, Chart every shift, confirming that patch is still in place on patient (no barcode scan needed). See patch order for dose information. polyethylene glycol (MIRALAX) Packet 17 g 0820 (Given - Provider: Vin Sims, RN) 0837 (Not Given - Provider: Areli [...] 8.6-50 MG per ta blet 2 tablet 08 (Given - Provider: Vin Sims, RN)2000 (Given - Provider: Alisa Ceja, GENARO) 0829 (Given - Provider: Areli Schwartz RN)1929 (Given - Provider: Yani Preciado, GENARO) 0809 (Not Given - Provider: Andrzej lizama, GENARO - Reason: Patient/family refused) 2 tablet, Oral, 2 TIMES DAILY, First dos e (after last modification) on Fri07/08/21 at 2000, [...] the lumen. thiamine (B-1) tablet 100 mg 0827 (Given - Provider: Vin Sims RN) 0829 (Given - Provider: Areli Schwartz RN) 0807 (Given - Provider: Andrzej Hodge, GENARO) 100 mg, Oral, DAILY, First dose on 07/07/21 at 0800 triamcinolone (KENALOG) 0.1 % ointment 0832 (Given - P rovider: Vin Sims RN)2004 (Not Given - Provider: Alisa Ceja RN - Reason: Patient/family refused) 0839 (Given - Provider: Areli Schwartz RN) 2244 (Not Given - Provider: Yani Preciado RN - Reason: Patient/family refused) 0824 (Not Given - Provider: Andrzej Hodge RN - Reason: Medication not available) Topical, 2 TIMES DAILY, First dose on 07/17/21 at 2000, Apply to other rash areas venlafaxine (EFFEXOR XR) 24 hr capsule 300 mg 0821 (Gi alex - Provider: Vin Sims, GENARO) 0829 (Given - Provider: Areli Schwartz RN) 0807 (Given - Provider: Andrzej Hodge, GENARO) 300 mg, Oral, DAILY, First dose on 07/07/21 at 0800 PRN Medication Order 07/21/2021 07/22/2021 07/23/2021 diphenhydrAMINE (BENADRYL) capsule 25 mg 25 mg, Oral, EVERY 6 HOURS PRN, itching, Starting on Fri07/16/21 at 0941 hydrOXYzine (ATARAX) tablet 25-50 mg 0821 (Given - Pro vider: Vin Sims, RN)1504 (Given - Provider: Vin Sims, RN) 1300 (Given - Provider: Areli Schwartz [...] ODT) ODT tab 4 mg(Linked Group 1) 2150 (Given - Provider: Alisa Ceja RN) 4 mg, Oral, EVERY 6 HOURS PRN, [...] Paulino Ybarra RN)1045 (Given - Provider: Vin Sims, RN)1503 (Canceled Entry - Provider: Vin Sims, RN)1649 (Given - Provider: Vin Sims, RN)2351 (Given - Provider: Alisa Ceja, GENARO) 0842 (Given - Provider: Areli Schwartz RN) 1635 (Given - Provider: Yani Preciado, GENARO)2241 (Given - Provider: Yani Preciado, GENARO) 0818 (Given - Provider: Andrzej Hodge, GENARO)1401 (Given - Provider: Andrzej Hodge RN) 5-10 mg, Oral, EVERY 6 HOURS PRN, modera te to severe pain, Starting on Fri07/15/21 at 1233, Start with lower dose. May increase to 10 mg as needed. Notify provider to assess for uncontrolled pain or leora lgesic side effects. Hold while on ELECTROMECHANICAL EQUIPMENT TESTER or with regular IV opioid dosing. polyethylene [...] mL 10-40 mL, Intracatheter, EVERY 1 HOUR IA N, other, to lock EACH CVC - [...] documented as of this encounter Care Teams Nurseryman Assistant Relationship Specialty Start Date End Date Juanis Mckenzie PCP - General Addiction Medicine 06/29/21 [address] [place] [phone] Deann Pina APRN [employer] Assigned PCP 02/25/[address] [place] [id number] documented as of this encounter
--- OUTSIDE RECORDS SUMMARY | 2021-11-10 00:38 | XMS_ITS | Encounter Summary ---
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 documented as of this encounter Plan of Treatment Upcoming Encounters Date Type Specialty Care Team Description 11/15/2021 Office Visit Wound Care Luis Camara DPM [address] [place] [address] (Wo rk) documented as of this encounter Visit Diagnoses Not on filedocumented in this encounter Additional Health Concerns Assessment Noted Time PHQ-9 Depression Total Score: 2 12/15/2020 1:07 PM CDT documented as of this encounter Care Teams Gym Supervisor Relationship Specialty Start Date End Date Clinic, [facility] PCP - General 01/20/18 06/28/[address] [place] [id number] Tatyana Haas APRN SUB ARC OPERATOR Assigned PCP 12/31/20 02/24/21 [facility] [address] [facility] [address] [place] [address] documented as of this encounter
--- OUTSIDE RECORDS SUMMARY | 2021-11-10 00:38 | XMS_ITS | Encounter Summary ---
:1980 Author Organization [place] Address [address] [place] [id number] Care Team Providers Name Role Phone Clinic, [facility] Primary Care Provide r Stephani Pina FARZANA REAL ESTATE SITE ANALYST Unavailable Reason for Visit Reason Onset Date Comments Erroneous encounter-disregard 03/07/2020 Encounter Details Date Type Department Care Team Description 03/03/[address] 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 documented as of this encounter Progress Notes Violeta Mckay CMA - 03/03/2020 9:45 AM CST Not feeling well and asked to be rescheduled for next week. Violeta Mckay CMA HORING MANAGER Inocencio Newberry PA-C - 03/03/2020 9:45 AM CST This encounter was opened in error. Please disregard. HORING MANAGER documented in this encounter Plan of Treatment Upcoming Encounters Date Type Specialty Care Team Description 11/15/2021 Office Visit Wound Care Luis Camara DPM [address] [place], [place] [phone] (Wo rk) documented as of this encounter Visit Diagnoses Diagnosis ERRONEOUS ENCOUNTER--DISREGARD - Primary documented in this encounter Additional Health Concerns Assessment Noted Time PHQ-9 Depression Total Score: 6 12/27/2019 9:38 AM OFFSHORING MANAGER documented as of this encounter Care Teams Knife Edger Relationship Specialty Start Date End Date Clinic, [facility] PCP - General 01/20/18 06/28/[address] [place] [id number] Stephani Pina APRN REAL ESTATE SITE ANALYST Assigned PCP 01/30/20 12/30/20 [address] [facility] [address] [place] [address] documented as of this encounter
--- NOTE | 2021-11-10 00:39 | ED.NURSE ---
per pt may share info with mom trino sanchez [phone]
--- OUTSIDE RECORDS SUMMARY | 2021-11-10 00:39 | XMS_ITS | Encounter Summary ---
:1980 Author Organization [place] Address [facility] 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 PLANNER Unavailable [phone] Reason for Visit Reason Comments Alcohol Problem Dizziness Encounter Details Date Type Department Care Team Description 08/23/2018 Emergency [facility] Loan Moise, PAMcC Dizziness; [facility] Emergency EMERGENCY PHYSICIANS Hyp omagnesemia; Dept PA Hypokalemia; [address] Alcohol withdrawal, uncomplicated (H) [place] [address] [phone] Social History Tobacco Use Types Packs/Day Years Used Date Current Every Day Smoker Cigarettes 0.25 10 Smokeless Tobacco: Never Used Comments: 5-8 cigarettes a day Alcohol Use Standard Drinks/Week Comments Not Currently 0 (1 standard drink = 0.6 oz pure alcoho l) sober 16 days Alcohol Habits Answer Date Recorded How often do you have a drink containing alcohol? Not asked 05/31/2020 How many drinks containing alcohol do you have on a Not aske d 05/31/2020 typical day when you are drinking? How often do you have six or more drinks on one occasion? 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 Alcohol Withdrawal (Welsh)Hypokalemia (Welsh)Hypomagnesemia, Discharge Instructions (Welsh)documented in this encounter Medications at Time of Discharge Medication Sig Dispensed Refills Start Date End Date bacitracin 500 UNIT/GM Apply topically 2 30 g 1 201801/07/2020 OINTIndications: Alcohol times daily as abuse, continuous needed for wound care LP pt buprenorphine Place 1 Film under 7 Film 0 07/07/201805/2018 HCl-naloxone HCl the tongue daily (SUBOXONE) 8-2 MG per filmIndications: Alcohol abuse, continuous buPROPion (WELLBUTRIN Take 150 mg by mouth 0 04/04/2019 SR) 150 MG 12 hr tablet 2 times daily co-enzyme Q-10 100 MG Take 100 mg by mouth 0 07/06/2021 CAPS capsule daily hydrOXYzine (ATARAX) 25 Take 1 tablet (25 30 tablet 1 07/0701/07/2020 MG tabletIndications: mg) by mouth every 4 Alcohol abuse, hours as needed for continuous anxiety levothyroxine Take 1 tablet (125 30 tablet 0 07/08/201805/2018 (SYNTHROID/LEVOTHROID) mcg) by mouth every 125 MCG morning (before tabletIndications: breakfast) Alcohol abuse, continuous multivitamin w/minerals Take 1 tablet by 30 each 0 201801/07/2020 (THERA-VIT-M) mouth daily tabletIndications: Alcohol abuse, continuous nicotine (NICORETTE) 2 Place 1 each (2 mg) 220 tablet 1 09/201801/07/2020 MG gumIndications: inside cheek as Nicotine dependence needed for smoking cessation nicotine (NICORETTE) 2 Place 1 each (2 mg) 40 tablet 1 06/1801/07/2020 MG gumIndications: inside cheek every 2 Alcohol abuse, hours as needed for continuous smoking cessation polyethylene glycol Take 17 g by mouth 10 packet 1 07/25/19 19 01/14/2020 (MIRALAX/GLYCOLAX) daily packetIndications: Drug-induced constipation traZODone (DESYREL) 50 Take 1 tablet (50 30 tablet 1 201801/20/2019 MG tabletIndications: mg) by mouth nightly Alcohol abuse, as needed for sleep continuous triamcinolone (KENALOG) Apply topically 2 453.6 g 1 07/2801/07/2020 0.1 % external times daily LP pt. creamIndications: Rash and nonspecific skin eruption venlafaxine (EFFEXOR-ER) Take 1 tablet (75 30 tablet 0 06/1804/04/2019 75 MG 24 hr mg) by mouth daily tabletIndications: (with breakfast) Alcohol abuse, continuous vitamin B1 (THIAMINE) Take 1 tablet (100 30 tablet 0 201801/14/2020 100 MG mg) by mouth daily tabletIndications: Alcohol abuse, continuous vitamin D3 2000 units Take 2,000 Units by 30 tablet 0 07/0801/14/2020 tabletIndications: mouth daily Alcohol abuse, continuous documented as of this encounter ED Notes Antonella Clayton RN - 08/23/2018 11:46 AM CDT Patient reports she was seen here yesterday for chest pain and ETOH. She reports she has not had a drink since prior to arrival yesterday. She is feeling shaky, nausea off and on, lightheaded, anxiety. LIOT Loan Moise PA-C - 08/23/2018 11:41 AM CDT History Chief Complaint: Alcohol Problem and Light-headedness HPI Stephani King is a 37 year old female with a history of substance abuse, alcohol abuse, and anxiety who presents to the emergency department today for evaluation of alcohol problem and light-headedness. The patient was evaluated here yesterday for alcohol intoxication with complications such as chest pain and hypokalemia. She states that she has also dealt with alcohol withdrawal symptoms in the past, has been to treatment but not hospitalized, and that her current symptomology feels more than just normal withdrawals. She endorses shortness of breath, diaphoresis, and light-headedness. She alsonotes that she did have these symptoms last night when she was here. She states that her consumptiontoday included a couple bananas, Gatorade, and water. The patient denies fever, nausea, vomiting, diarrhea, or chest pain. Allergies: No Known Drug Allergies Medications: Bacitracin Suboxone Wellbutrin Co-enzyme Q10 Atarax Levothyroxine Thera-vit-m Nicoerette Miralax/glycolax Trazodone Kenalog cream Effexor Thiamin Vitamin D3 Past Medical History: Anxiety Alcohol abuse Chronic hepatitis C Depressive disorder Hypothyroid Suboxone maintenance treatment complicating , antepartum Substance abuse Uncomplicated opioid dependence Past Surgical History: Breast surgery - abscess drained Orthopedic surgery Thoracic surgery section, immediate hysterectomy, combined Family History: The patient's family history includes Asthma in her son; Cancer in her maternal grandfather; Cerebrovascular Disease in her father; Depression in her brother, brother, and mother; Myocardial Infarctionin her father; Psychotic Disorder in her mother; Thyroid Disease in her mother. Social History: The patient reports that she is a current every day smoker. She has a 2.50 pack- year smoking history. She has never used smokeless tobacco. She reports that she drank alcohol. She reports that she has current or past drug history. PCP: Clinic, [facility] Medical Review of Systems Constitutional: Positive for diaphoresis. Negative for fever. Respiratory: Positive for shortness of breath. Cardiovascular: Negative for chest pain (resolved since yesterday). Gastrointestinal: Negative for diarrhea, nausea and vomiting. Neurological: Positive for light-headedness. All other systems reviewed and are negative. Physical Exam Patient Vitals for the past 24 hrs: BP Temp Temp src Pulse Heart Rate Resp SpO2 Weight 08/23/18 1645 -- -- -- -- 82 13 100 % -- 08/23/18 1630 -- -- -- -- 80 12 98 % -- 08/23/18 1615 -- -- -- -- 79 12 98 % -- 08/23/18 1600 -- -- -- -- 90 11 99 % -- 08/23/18 1545 -- -- -- -- 86 9 99 % -- 08/23/18 1530 -- -- -- -- 85 12 -- -- 08/23/18 1515 -- -- -- -- 81 12 -- -- 08/23/18 1500 -- -- -- -- 78 12 -- -- 08/23/18 1445 -- -- -- -- 82 15 -- -- 08/23/18 1430 -- -- -- -- 82 13 -- -- 08/23/18 1330 129/84 -- -- 81 86 9 -- -- 08/23/18 1315 124/82 -- -- 81 82 10 99 % -- 08/23/18 1300 119/80 -- -- 88 85 15 98 % -- 08/23/18 1245 143/83 -- -- 80 -- -- 98 % -- 08/23/18 1230 142/87 -- -- 89 81 15 96 % -- 08/23/18 1215 (!) 141/94 -- -- 95 -- -- 100 % -- 08/23/18 1200 (!) 151/99 -- -- -- -- -- -- -- 08/23/18 1148 (!) 173/113 98.7 ??F (37.1 ??C) Temporal 89 89 16 100 % 83.5 kg (184 lb) Physical Exam Constitutional: well appearing, no acute distress. Head: No external signs of trauma noted to head or face. Eyes: Pupils are equal, round, and reactive to light. Conjunctiva normal. EOMI. ENT: MMM. Mild tongue fasciculations. Normal voice. Neck: normal ROM. Cardiovascular: Normal rate, regular rhythm, and intact distal pulses. Respiratory: Effort normal. No respiratory distress. Lungs clear to auscultation bilaterally. GI: Soft. Non-tender. No rebound or guarding. Musculoskeletal: No deformities appreciated. Normal ROM. No edema noted. Neurological: Alert and Oriented x 3. Speech normal. Moves all extremities equally. Mild tremor. CN II-XII intact. Coordination normal. Normal strength and sensation in upper and lower extremities bilaterally. Gait normal. Psychiatric: Appropriate mood, affect, and behavior. Skin: Skin is warm and dry. no rash. Emergency Department Course ECG: ECG taken at 1225, ECG read at 1234 Normal sinus rhythm Prolonged QT Abnormal ECG Rate 80 bpm. WI interval 162 ms. QRS duration 94 ms. QT/QTc 432/498 ms. P-R-T axes 51 61 41. Laboratory: Laboratory findings were communicated with the patient who voiced understanding of the findings. UA with Microscopic: Color Yellow, Appearance Clear, pH 7.5 (H), Urobilinogen mg/dL 8.0 (H), Mucous Present (A), o/w negative or WNL HCG qualitative urine: Negative CBC: WBC 3.1 (L), HGB 13.7, PLT 82 (L) Troponin I: <0.015 Alcohol level blood: <0.01 Magnesium: 1.4 (L) CMP: Potassium 3.1 (L), Glucose 123 (H), Urea Nitrogen 5 (L), Bilirubin Total 1.6 (H), Alkaline Phosphatase 158 (H), ALT 192 (H), AST 242 (H), All other components within normal limits (Creatinine 0.57) Interventions: 1224 NS 1000 mL IV 1230 Valium 5 mg Oral 1414 NS 1000 mL IV 1415 Magnesium sulfate infusion 2 g in NS IV 1547 Valaium 10 mg Oral 1548 Klor-Con 40 mEq Oral Emergency Department Course: 1203 Nursing notes and vitals reviewed. 1209 I performed a physical examination of the patient as documented above. 1222 IV was inserted and blood was drawn for laboratory testing, results above. 1225 EKG obtained as noted above. 1238 The patient provided a urine sample here in the emergency department. This was sent for laboratory testing, findings above. 1318 I rechecked the patient. 1649 I personally reviewed the laboratory results with the patient and answered all related questions prior to discharge. Impression & Plan Medical Decision Making: Stephani King is a 37 year old female who presents to the emergency department today for evaluation of dizziness and lightheadedness. She had an evaluation last night for chest pain and alcohol intoxication that was negative and she was discharged home. She arrives with signs of mild alcohol withdrawal, which improved with oral valium. Her EKG today is unchanged. Troponin is negative. Urinalysis isnegative for any evidence of infection. She is not . Labs are notable for K of 3.1 and Mg of1.4. Patient was given IVF and K and Mg replacement with significant improvement of her symptoms. I suspect some of her symptoms are related to mild alcohol withdrawal. She has no history of alcohol withdrawal seizures and with only mild withdrawal here, I do not feel she requires admission. She is feeling improved and is tolerating PO and therefore, I feel she is appropriate for discharge home with close follow-up with PCP in 1- 2 days for lab recheck. She was instructed to return to the ED for any new or worsening symptoms. Diagnosis: ICD-10-CM 1. Dizziness R42 2. Hypomagnesemia E83.42 3. Hypokalemia E87.6 4. Alcohol withdrawal, uncomplicated (H) F10.230 Disposition: The patient is discharged to home. Discharge Medications: No discharge medications. Scribe Disclosure: IPee, am serving as a scribe at 12:03 PM on 08/23/2018 to document services personally performed by Loan Moise PA-C based on my observations and the provider's statements to me. [facility] EMERGENCY DEPARTMENT Loan Moise PA-C 08/23/182015 documented in this encounter Plan of Treatment Upcoming Encounters Date Type Specialty Care Team Description 11/15/2021 Office Visit Wound Care Luis Camara, [place] [address] [place] [address] (Wo rk) documented as of this encounter Procedures Procedure Name Priority Date/Time Associated Comments Diagnosis HCG QUALITATIVE URINE STAT 08/23/2018 12:38 Re sults for this PM CDT procedure are i n the results section. ROUTINE UA WITH STAT 08/23/2018 12:38 Results for this MICROSCOPIC PM CDT procedure are i n the results section. EKG 12-LEAD, TRACING STAT 08/23/2018 12:25 Res ults for this ONLY PM CDT procedure are i n the results section. CBC WITH PLATELETS & STAT 08/23/2018 12:22 Res ults for this DIFFERENTIAL PM CDT procedure are i n the results section. TROPONIN I STAT 08/23/2018 12:22 Results for this PM CDT procedure are i n the results section. MAGNESIUM STAT 08/23/2018 12:22 Results for this PM CDT procedure are i n the results section. COMPREHENSIVE STAT 08/23/2018 12:22 Results fo r this METABOLIC PANEL PM CDT procedure ar e in the results section. ETHYL ALCOHOL LEVEL STAT 08/23/2018 12:22 Resu lts for this PM CDT procedure are i n the results section. documented in this encounter Results HCG qualitative urine (UPT) (08/23/2018 12:38 PM CDT) athologist Signature HCG Qual Urine Negative NEG^Negati 08/23/2018 [place] ve 12:52 PM CDT [facility] Comment: This test is for screening purposes. ??R esults should be interpreted along with the clinical picture. ??Confirmation te sting is available if warranted by ordering [id number], HCG Quantitative Pregna ncy. Specimen Anatomical Collection Method Collection Time Receive d Time (Source) Location / / Volume Laterality Urine specimen 08/23/2018 12:38 9 (specimen) PM CDT 12:43 PM CDT Loan Moise PA-C LAB - URINE ORDERABLES Performing Organization Address City/State/ZIP Code Phon e Number [place] [address] [place] [address] [facility] [address] [phone] (ABNORMAL) UA with Microscopic (08/23/2018 12:38 PM CDT) [facility] gist Method Time Signature Color Urine Yellow 08/23/2018 [place] 12:49 PM [facility] Appearance Urine Clear 08/23/2018 [place] 12:49 PM [facility] Glucose Urine Negative NEG^Negat 08/23/2018 [place] mg/dL 12:49 PM [facility] Bilirubin Urine Negative NEG^Negat 08/23/2018 [place]ula 12:49 PM [facility] Ketones Urine Negative NEG^Negat 08/23/2018 [place] mg/dL 12:49 PM [facility] Specific [place] 1.017 1.003 - 08/23/2018 [place] Urine 1.035 12:49 PM [facility] Blood Urine Negative NEG^Negat 08/23/2018 [place] paula 12:49 PM [facility] pH Urine 7.5 (H) 5.0 - 7.0 08/23/2018 [place] pH 12:49 PM [facility] Protein Albumin Negative NEG^Negat 08/23/2018 [place] Urine [place] mg/dL 12:49 PM [facility] Urobilinogen 8.0 (H) 0.0 - 2.0 08/23/2018 [place] mg/dL mg/dL 12:49 PM [facility] Nitrite Urine Negative NEG^Negat 08/23/2018 [place] paula 12:49 PM [facility] Leukocyte Negative NEG^Negat 08/23/2018 [place] Esterase Urine [place] 12:49 PM [facility] Source Midstream 08/23/2018 [place] Urine 12:39 PM [facility] WBC Urine <1 0 - 5 08/23/2018 [facility] /HPF 12:49 PM [facility] RBC Urine <1 0 - 2 08/23/2018 [facility] /HPF 12:49 [facility] Squamous 1 0 - 1 08/23/2018 [place] Epithelial /HPF /HPF 12:49 PM [facility] Mucous Urine Present (A) NEG^Negat 08/23/2018 [place] /LPF 12:49 [facility] Specimen (Source) Anatomical Collection Method Collection Time Re ceived Time Location / / Volume Laterality Examination of 08/23/2018 12:38 9 midstream urine PM T 12:43 PM [facility] specimen (procedure) Loan Moise PA-C LAB - URINE ORDERABLES Performing Organization Address City/State/ZIP Code Phon e Number M [facility] [address] [place], [place] [address] [facility] [address] [phone] EKG 12-lead, tracing only (08/23/2018 12:25 PM CDT) Patholo gist Method Time Signature Interpretation ECG Click View RADIOLOGY Image link RESULTS to view waveform and result Specimen (Source) Anatomical Collection Method Collection Time Re ceived Time Location / / Volume Laterality 08/23/2018 12:25 PM CDT Loan Moise PA-C ECG ORDERABLES Performing Organization Address City/State/ZIP Code Phon e Number RADIOLOGY RESULTS (ABNORMAL) Comprehensive metabolic panel (08/23/2018 12:22 PM CDT) athologist Signature Sodium 138 133 - 144 08/23/2018 [place] mmol/L 12:43 PM [facility] Potassium 3.1 (L) 3.4 - 5.3 08/23/2018 [place] mmol/L 12:43 PM [facility] Chloride 103 94 - 109 08/23/2018 [place] mmol/L 12:43 PM [facility] Carbon Dioxide 30 20 - 32 08/23/2018 [place] mmol/L 12:50 PM [facility] Anion Gap 4 3 - 14 08/23/2018 [place] mmol/L 12:50 PM [facility] Glucose 123 (H) 70 - 99 08/23/2018 [place] mg/dL 12:50 PM [facility] Urea Nitrogen 5 (L) 7 - 30 08/23/2018 [place] mg/dL 12:50 PM [facility] Creatinine 0.57 0.52 - 08/23/2018 [place] 1.04 mg/dL 12:50 PM [facility] GFR Estimate >90 >60 08/23/2018 [place] mL/min/{1. 12:50 PM [facility] 73_m2} HOSPITAL Comment: Non GFR Calc Starting 02/03/2018, serum creatinine ba sed estimated GFR (eGFR) will be calculated using the Chronic Kidney Dise ase Epidemiology Collaboration (CKD-EPI) equation. GFR Estimate If >90 >60 mL/min/{1.73_m2} 08/23/2018 12 :50 PM [facility] CDT [facility] Comment: GFR Calc Starting 02/03/2018, serum creatinine ba sed estimated GFR (eGFR) will be calculated using the Chronic Kidney Dise ase Epidemiology Collaboration (CKD-EPI) equation. Calcium 8.8 8.5 - 10.1 08/23/2018 12:50 PM [facility] mg/dL [facility] Bilirubin Total 1.6 (H) 0.2 - 1.3 mg/dL 08/23/2018 12:52 P [facility] Albumin 3.8 3.4 - 5.0 g/dL 08/23/2018 12:52 PM [facility] Protein Total 7.9 6.8 - 8.8 g/dL 08/23/2018 12:52 PM [facility] Alkaline Phosphatase 158 (H) 40 - 150 U/L 08/23/2018 12:52 PM [facility] ALT 192 (H) 0 - 50 U/L 08/23/2018 12:52 PM [facility] AST 242 (H) 0 - 45 U/L 08/23/2018 12:52 PM [facility] Specimen Anatomical Collection Method Collection Time Receive d Time (Source) Location / / Volume Laterality Blood specimen 08/23/2018 12:22 9 (specimen) PM CDT 12:30 PM CDT Loan Moise PA-C LAB - BLOOD ORDERABLES Performing Organization Address City/State/ZIP Code Phon e Number [place] [address] [address] [place] [address] [place] [address] [phone] (ABNORMAL) Magnesium (08/23/2018 12:22 PM CDT) P athologist Signature Magnesium 1.4 (L) 1.6 - 2.3 08/23/2018 [place] mg/dL 12:52 PM [facility] Specimen Anatomical Collection Method Collection Time Receive d Time (Source) Location / / Volume Laterality Blood specimen 08/23/2018 12:22 9 (specimen) PM CDT 12:30 PM CDT Loan Moise PA-C LAB - BLOOD ORDERABLES Performing Organization Address City/State/ZIP Code Phon e Number M [facility] [address] [place] [address] [facility] [address] [place], [place] [address], [facility] [phone] Alcohol level blood (08/23/2018 12:22 PM CDT) athologist Signature Ethanol g/dL <0.01 <0.01 g/dL 08/23/2018 [place] 12:52 PM [facility] Specimen Anatomical Collection Method Collection Time Receive d Time (Source) Location / / Volume Laterality Blood specimen 08/23/2018 12:22 9 (specimen) PM CDT 12:30 PM CDT Loan Moise PA-C LAB - BLOOD ORDERABLES Performing Organization Address [facility]/ZIP [facility] Phon e Number M [facility] [address] [place], [place] [address] [facility] [address] [place], [place] [address], [facility] [phone] Troponin I (08/23/2018 12:22 PM CDT) athologist Signature Troponin I ES <0.015 0.000 - 08/23/2018 [place] 0.045 ug/L 12:54 PM [facility] Comment: The 99th percentile for upper reference range is 0.045 ug/L. ??Troponin values in the range of 0.045 - 0.120 ug/L may b e associated with risks of adverse clinical events. Specimen Anatomical Collection Method Collection Time Receive d Time (Source) Location / / Volume Laterality Blood specimen 08/23/2018 12:22 9 (specimen) PM CDT 12:30 PM CDT Loan Moise PA-C LAB - BLOOD ORDERABLES Performing Organization Address City/[facility]/ZIP Code Phon e Number M [facility] [address] [place], [place] [address] [facility] [address] [place], [place] [address] [facility] [phone] (ABNORMAL) CBC with platelets differential (08/23/2018 12:22 PM [facility]) [facility] Method Time Signature WBC 3.1 (L) 4.0 - 08/23/2018 [facility] 11.0 12:33 PM [facility] 10e9/L [facility] RBC Count 4.22 3.8 - 5.2 08/23/2018 [facility] 10e12/L 12:33 PM [facility] Hemoglobin 13.7 11.7 - 08/23/2018 [facility] 15.7 g/dL 12:33 PM [facility] Hematocrit 39.6 35.0 - 08/23/2018 [facility] 47.0 % 12:33 [facility] MCV 94 78 - 100 08/23/2018 [facility] fl 12:33 [facility] MCH 32.5 26.5 - 08/23/2018 [facility] 33.0 pg 12:33 [facility] MCHC 34.6 31.5 - 08/23/2018 [facility] 36.5 g/dL 12:33 [facility] RDW 12.3 10.0 - 08/23/2018 [facility] 15.0 % 12:33 PM [facility] Platelet Count 82 (L) 150 - 450 08/23/2018 [facility] 10e9/L 12:33 [facility] Diff Method Automated 08/23/2018 [facility] Method 12:33 [facility] % Neutrophils 53.1 % 08/23/2018 [facility] 12:33 [facility] % Lymphocytes 34.9 % 08/23/2018 [facility] 12:33 [facility] % Monocytes 10.1 % 08/23/2018 [facility] 12:33 [facility] % Eosinophils 1.3 % 08/23/2018 [facility] 12:33 [facility] % Basophils 0.3 % 08/23/2018 [facility] 12:33 [facility] % Immature 0.3 % 08/23/2018 [facility] Granulocytes 12:33 [facility] Nucleated RBCs 0 0 /100 08/23/2018 [facility] 12:33 [facility] Absolute 1.6 1.6 - 8.3 08/23/2018 [place] Neutrophil 10e9/L 12:33 PM [facility] Absolute 1.1 0.8 - 5.3 08/23/2018 [place] Lymphocytes 10e9/L 12:33 PM [facility] Absolute 0.3 0.0 - 1.3 08/23/2018 [place] Monocytes 10e9/L 12:33 PM [facility] Absolute 0.0 0.0 - 0.7 08/23/2018 [place] Eosinophils 10e9/L 12:33 PM [facility] Absolute 0.0 0.0 - 0.2 08/23/2018 [place] Basophils 10e9/L 12:33 PM [facility] Abs Immature 0.0 0 - 0.4 08/23/2018 [place] Granulocytes 10e9/L 12:33 PM [facility] Absolute 0.0 08/23/2018 [place] Nucleated RBC 12:33 [facility] Specimen Anatomical Collection Method Collection Time Receive d Time (Source) Location / / Volume Laterality Blood specimen 08/23/2018 12:22 9 (specimen) PM CDT 12:30 PM CDT Loan Moise PA-C LAB - BLOOD ORDERABLES Performing Organization Address City/State/ZIP Code Phon e Number M [place] [address] [phone] documented in this encounter Visit Diagnoses Diagnosis Dizziness Dizziness and giddiness Hypomagnesemia Disorders of magnesium metabolism Hypokalemia Hypopotassemia Alcohol withdrawal, uncomplicated (H) documented in this encounter Administered Medications Inactive Administered Medications - up to 3 most recent administrations Medication Order MAR Action Action Date Dose Rate Site 0.9% sodium chloride BOLUS New Bag 08/23/2018 12:24 PM 1,000 mLs 1000 mL/hr Intravenous, 1,000 mL, CDT ONCE, at 1,000 mL/hr, Administer over 1 Hours, On 08/23/18 at 1209, For 1 dose 0.9% sodium chloride BOLUS New Bag 08/23/2018 2:14 PM CDT 1,000 mLs 1000 mL/hr Intravenous, 1,000 mL, ONCE, at 1,000 mL/hr, Administer over 1 Hours, On 08/23/18 at 1333, For 1 dose diazepam (VALIUM) tablet 10 mg Given 08/23/2018 3:47 PM CDT 10 mg 10 mg, Oral, ONCE, On 08/23/18 at 1544, For 1 dose diazepam (VALIUM) tablet 5 mg Given 08/23/2018 12:30 PM CDT 5 mg 5 mg, Oral, ONCE, On 08/23/18 at 1209, For 1 dose magnesium sulfate 2 g in NS intermittent New Bag 08/23/2018 2:15 P M CDT 2 g infusion (PharMEDium or FV Cmpd) 2 g, Intravenous, Administer over 60 Minutes, ONCE, On 08/23/18 at 1318, For 1 dose potassium chloride (KLOR-CON) Packet 40 mEq Given 08/23/2018 3:48 PM CDT 40 mEq 40 mEq, Oral, ONCE, On 08/23/18 at 1318, For 1 dose, Dissolve packet contents in 4-8 ounces of cold water or juice. potassium chloride 10 mEq in 100 mL New Bag 08/23/2018 3:49 PM CDT 10 mEq intermittent infusion with 10 mg lidocai ne 10 mEq, Intravenous, Administer over 1 Hours, EVERY 1 HOUR PRN, potassium supplementation, Starting on 08/23/18 at 1317 documented in this encounter Active and Recently Administered Medications Times are shown in CDT. Scheduled Medication Order 08/21/2018 08/22/2018 08/23/2018 0.9% sodium chloride BOLUS (COMPLETED) 1224 (New Bag - Provider: Ann Marie Guzman RN)1414 (Stopped - Provider: Ann Marie Guzman RN) Intravenous, 1,000 mL, ONCE, at 1,000 mL /hr, Administer over 1 Hours, 08/23/18 at 1209, For 1 dose 0.9% sodium chloride BOLUS (COMPLETED) 1414 (New Bag - Provider: Ann Marie Guzman RN)1549 (Stopped - Provider: Ann Marie Guzman RN) Intravenous, 1,000 mL, ONCE, at 1,000 mL /hr, Administer over 1 Hours, 08/23/18 at 1333, For 1 dose diazepam (VALIUM) tablet 10 mg (COMPLETED) 1547 (Given - Provider: Ann Marie Guzman RN) 10 mg, Oral, ONCE, 08/23/18 at 1544, For 1 dose diazepam (VALIUM) tablet 5 mg (COMPLETED) 1230 (Given - Provider: Ann Marie Guzman RN) 5 mg, Oral, ONCE, 08/23/18 at 1209, For 1 dose magnesium sulfate 2 g in NS intermittent infusion (PharMEDium or FV Cmpd) (COMPLETED) 1415 (New Bag - Prov ider: Ann Marie Guzman RN)1515 (Stopped - Provider: Ann Marie Guzman RN) 2 g, Intravenous, Administer over 60 Min utes, ONCE, 08/23/18 at 1318, For 1 dose potassium chloride (KLOR-CON) Packet 40 mEq (COMPLETED) 1548 (Given - Provider: Ann Marie Guzman RN) 40 mEq, Oral, ONCE, 08/23/18 at 1318, For 1 dose, Dissolve packet contents in 4-8 ounces of cold water or juice. PRN Medication Order 08/21/2018 08/22/2018 08/23/2018 potassium chloride 10 mEq in 100 mL intermittent infusion wi th 10 mg lidocaine 1549 (New Bag - Provider: Ann Marie Guzman RN)1648 (Stopped - Provider: Ann Marie Guzman RN) 10 mEq, Intravenous, Administer over 1 H ours, EVERY 1 HOUR PRN, Starting 08/23/18 at 1317, potassium supplementation documented in this encounter Additional Health Concerns Assessment Noted Time PHQ-9 Depression Total Score: 10 07/08/2018 1:27 PM CD T documented as of this encounter Care Teams Instrument Specialist Relationship Specialty Start Date End Date Clinic, [facility] PCP - General 01/20/18 06/28/[address] [place] [address] Tatyana Haas, DUPLICATOR PUNCH SET UP OPERATOR EMERGENCY PLANNER Assigned PCP 08/02/18 01/29/20 [place] [facility] [address] [facility] [address] [place] [address] documented as of this encounter
--- OUTSIDE RECORDS SUMMARY | 2021-11-10 00:39 | XMS_ITS | Encounter Summary ---
:1980 Author Organization [place] Address [address] [place] [address] Care Team Providers Name Role Phone Clinic, [facility] Primary Care Provide r Tatyana Haas RECTIFICATION PRINTER JUNIOR ACCOUNT EXECUTIVE Unavailable [phone] Encounter Details Date Type Department Care Team Description 04/01/2019 Travel Social History Tobacco Use Types Packs/Day [...] at Date Recorded Female 01/14/2020 10:57 AM OWNER/OPERATOR documented as of this encounter Plan of Treatment Upcoming Encounters Date Type Specialty Care Team Description 11/15/2021 Office Visit Wound Care Luis Camara DPM [address] [place] [address] (Wo rk) documented as of this encounter Visit Diagnoses Not on filedocumented in this encounter Additional Health Concerns Assessment Noted Time PHQ-9 Depression Total Score: 10 07/08/2018 1:27 PM CD T documented as of this encounter Care Teams Building Supervisor Relationship Specialty Start Date End Date Clinic, [facility] PCP - General 01/20/18 06/28/[address] [place] [address] [id number] Tatyana Haas APRN JUNIOR ACCOUNT EXECUTIVE Assigned PCP 08/02/18 01/29/20 [facility] [address] [facility] [address] [place] [address] documented as of this encounter
--- OUTSIDE RECORDS SUMMARY | 2021-11-10 00:39 | XMS_ITS | Encounter Summary ---
:1980 Author Organization [place] Address [address] [place] [address] Care Team Providers Name Role Phone Clinic, [facility] Primary Care Provide r Tatyana Haas BALLISTIC EXPERT OTHER SALES SUPPORT WORKER Unavailable [phone] Encounter Details Date Type Department Care Team Description 01/11/2020 Travel Social History Tobacco Use Types Packs/Day [...] at Date Recorded Female 01/14/2020 10:57 AM COPIER AND PRINTER FIELD TECHNICIAN COVID-19 Exposure Response Date Recorded In the last month, have you been in contact with No / Unsure 01/11/2020 8:00 PM COPIER AND PRINTER FIELD TECHNICIAN someone who was confirmed or suspected to have Coronavirus / COVID-19? documented as of this encounter Plan of Treatment Upcoming Encounters Date Type Specialty Care Team Description 11/15/2021 Office Visit Wound Care Luis Camara DPM [address] [place] [address] (Wo rk) documented as of this encounter Visit Diagnoses Not on filedocumented in this encounter Additional Health Concerns Assessment Noted Time PHQ-9 Depression Total Score: 6 12/27/2019 9:38 AM COPIER AND PRINTER FIELD TECHNICIAN documented as of this encounter Care Teams Printing Assistant Relationship Specialty Start Date End Date Clinic, [facility] PCP - General 01/20/18 06/28/[address] [place] [address] Tatyana Haas APRN OTHER SALES SUPPORT WORKER Assigned PCP 08/02/18 01/29/20 [place] [facility] [address] [facility] [address] [place] [address] documented as of this encounter
--- OUTSIDE RECORDS SUMMARY | 2021-11-10 00:39 | XMS_ITS | Encounter Summary ---
:1980 Author Organization [place] Address [address] [place] [address] Care Team Providers Name Role Phone Clinic, [facility] Primary Care Provide r Tatyana Haas BROADCAST MAINTENANCE ENGINEER DIETARY WORKER Unavailable [phone] Encounter Details Date Type Department Care Team Description 02/28/2019 Travel Social History Tobacco Use Types Packs/Day [...] Date Recorded Female 01/14/2020 10:57 AM SUPERVISOR COAL HANDLING documented as of this encounter Plan of Treatment Upcoming Encounters Date Type Specialty Care Team Description 11/15/2021 Office Visit Wound Care Luis Camara DPM [address] [place] [address] (Wo rk) documented as of this encounter Visit Diagnoses Not on filedocumented in this encounter Additional Health Concerns Assessment Noted Time PHQ-9 Depression Total Score: 10 07/08/2018 1:27 PM CD T documented as of this encounter Care Teams Blue Leather Sorter Relationship Specialty Start Date End Date Clinic, [facility] PCP - General 01/20/18 06/28/[address] [place] [address] [id number] Tatyana Haas APRN DIETARY WORKER Assigned PCP 08/02/18 01/29/20 [facility] [address] [facility] [address] [place] [address] documented as of this encounter
--- OUTSIDE RECORDS SUMMARY | 2021-11-10 00:39 | XMS_ITS | Encounter Summary ---
:1980 Author Organization [place] Address [facility] [place] [address] Care Team Providers Name Role Phone Clinic, [facility] Primary Care Provide r Tatyana Haas WELDING SETTER ASSISTED LIVING HOME DIRECTOR Unavailable [phone] Reason for Visit Reason Onset Date Comments No Show 02/16/2019 Encounter Details Date Type Department Care Team Description 02/16/2019 Office Visit [facility] Chon, NO SHOW (P rimary Dx) Clinic Watson ROSLYN Russ [address] [place] [address] [address] [place] [address] [phone] Social History Tobacco Use Types Packs/Day Years [...] at Date Recorded Female 01/14/2020 10:57 AM DIRECTOR MULTIMEDIA documented as of this encounter Progress Notes Hillary Sears MA - 02/16/2019 1:20 PM CST . This patient was a no show for this scheduled appointment. CTOR MULTIMEDIA documented in this encounter Plan of Treatment Upcoming Encounters Date Type Specialty Care Team Description 11/15/2021 Office Visit Wound Care Luis Camara DPM [address] [place] [address] (Wo rk) documented as of this encounter Visit Diagnoses Diagnosis NO SHOW - Primary documented in this encounter Additional Health Concerns Assessment Noted Time PHQ-9 Depression Total Score: 10 07/08/2018 1:27 PM CD T documented as of this encounter Care Teams Ceo And President Relationship Specialty Start Date End Date Clinic, [facility] PCP - General 01/20/18 06/28/[address] [place] [address] Tatyana Haas APRN ASSISTED LIVING HOME DIRECTOR Assigned PCP 08/02/18 01/29/20 [facility] [address] [facility] [address] [place] [address] documented as of this encounter
--- OUTSIDE RECORDS SUMMARY | 2021-11-10 00:39 | XMS_ITS | Encounter Summary ---
:1980 Author Organization [place] Address [address] [place] [address]. [place] [address] Care Team Providers Name Role Phone Clinic, [facility] Primary Care Provide r Tatyana Haas Sanju PHOTO OPTICS TECHNICIAN FUR GLOSSER Unavailable [phone] Reason for Visit Reason Onset Date Comments MH/CD Inpatient 04/01/2019 Encounter Details Date Type Department Care Team Description 04/01/2019 Telephone [facility] Generic, Behavioral MH/ CD Inpatient Behavioral Health In [facility] MD Miguel [address] [place] [id number] Social History Tobacco Use Types Packs/Day Years [...] at Date Recorded Female 01/14/2020 10:57 AM PHONOGRAPH MECHANIC documented as of this encounter Miscellaneous Notes Telephone Encounter - Claudette Francis - 04/01/2019 5:26 PM CST S: [place] ED seeking detox placement for a 38yo female ETOH. B: Pt seeking detox from ETOH. Pt drinking half liter to a liter of hard alcohol daily for several months. Pt denies hx of withdrawal seizures and DT, drank before coming. Pt is ambulatory. Pt breathalyzer 0.303. Pt reports suboxone maintenance for the past 10 years. Pt denies other substance abuse. Pt denies medical concerns and MH concerns. Pt reports she had surgery on her right ankle and has ongoing pain, but is ambulatory and medically cleared. Pt potassium is being corrected in the ED. A: Medically cleared, utox pending, voluntary. R: Presenting for detox Patient cleared and ready for behavioral bed placement: Yes OGRAPH MECHANIC documented in this encounter Plan of Treatment Upcoming Encounters Date Type Specialty Care Team Description 11/15/2021 Office Visit Wound Care Luis Camara DPM [address] [place] [address] (Wo rk) documented as of this encounter Visit Diagnoses Not on filedocumented in this encounter Additional Health Concerns Assessment Noted Time PHQ-9 Depression Total Score: 10 07/08/2018 1:27 PM CD T documented as of this encounter Care Teams Gluer Machine Operator Relationship Specialty Start Date End Date Clinic, [facility] PCP - General 01/20/18 06/28/[address] [place] [address] Tatyana Haas, PHOTO OPTICS TECHNICIAN FUR GLOSSER Assigned PCP 08/02/18 01/29/20 [place] [facility] [address] [facility] [address] [place] [address] documented as of this encounter
--- OUTSIDE RECORDS SUMMARY | 2021-11-10 00:39 | XMS_ITS | Encounter Summary ---
:1980 Author Organization [place] Address [address] [place] [address] Care Team Providers Name Role Phone Clinic, [facility] Primary Care Provide r Tatyana Haas PER DIEM CLERK LOWER IN SUPERVISOR Unavailable [phone] Encounter Details Date Type Department Care Team Description 01/07/2020 Travel Social History Tobacco Use Types Packs/Day [...] at Date Recorded Female 01/14/2020 10:57 AM CAKE ICER COVID-19 Exposure Response Date Recorded In the last month, have you been in contact with No / Unsure 01/07/2020 9:15 AM CAKE ICER someone who was confirmed or suspected to have Coronavirus / COVID-19? documented as of this encounter Plan of Treatment Upcoming Encounters Date Type Specialty Care Team Description 11/15/2021 Office Visit Wound Care Luis Camara DPM [address] [place] [address] (Wo rk) documented as of this encounter Visit Diagnoses Not on filedocumented in this encounter Additional Health Concerns Assessment Noted Time PHQ-9 Depression Total Score: 6 12/27/2019 9:38 AM CAKE ICER documented as of this encounter Care Teams Cable Ferryboat Operator Relationship Specialty Start Date End Date Clinic, [facility] PCP - General 01/20/18 06/28/[address] [place] [address] Tatyana Haas APRN LOWER IN SUPERVISOR Assigned PCP 08/02/18 01/29/20 [place] [facility] [address] [facility] [address] [place] [address] documented as of this encounter
--- OUTSIDE RECORDS SUMMARY | 2021-11-10 00:39 | XMS_ITS | Encounter Summary ---
:1980 Author Organization [place] Address [address] [place] [address] Care Team Providers Name Role Phone Clinic, [facility] Primary Care Provide r Tatyana Haas DRYING RACK CHANGER DIGITAL SALES DIRECTOR Unavailable [phone] Stephani Pina DRYING RACK CHANGER DIGITAL SALES DIRECTOR Unavailable [phone] Tatyana Haas DRYING RACK CHANGER DIGITAL SALES DIRECTOR Unavailable [phone] Stephani Pina DRYING RACK CHANGER DIGITAL SALES DIRECTOR Unavailable [phone] Juanis Levi Primary Care Provider Elsa Yeh RN Unavailable Unavailable Rogelio Treadwell MD Unavailable [phone] Luis Camara DPM Unavailable [phone] Camryn Christina MD Unavailable Sintia Lange PA-C Unavailable Reason for Visit Reason Onset Date Comments MH/CD Inpatient 01/11/2020 Encounter Details Date Type Department Care Team Description 01/11/2020 Telephone [facility] [place] Generic, Behavioral MH/ CD Inpatient Behavioral Health In abigail Rivera MD [address] [place] [address] Social History Tobacco Use Types Packs/Day [...] at Date Recorded Female 01/14/2020 10:57 AM CONSTRUCTION EQUIPMENT OVERHAULER COVID-19 Exposure Response Date Recorded In the last month, have you been in contact with No / Unsure 01/11/2020 8:00 PM CONSTRUCTION EQUIPMENT OVERHAULER someone who was confirmed or suspected to have Coronavirus / COVID-19? documented as of this encounter Miscellaneous Notes Telephone Encounter - Rocio Messer - 01/11/2020 10:22 PM CST S: Pt is a 39 yr old fem in [place] ED for detox from alcohol report by Dr. Tashi Gilmore; Pt reports drinking 750 ml of vodka daily. Last reported drink was just prior to arrival. Breathalyzer .186. No reported hx of DTs or seizures. No other substances reported. MH: depression and anxiety. Medical: Hep C. COVID test processing. reports pt can ambulate independently. A: vol R: 3A / Velu[place]i / CD Patient cleared and ready for behavioral bed placement: Yes TRUCTION EQUIPMENT OVERHAULER documented in this encounter Plan of Treatment Upcoming Encounters Date Type Specialty Care Team Description 11/15/2021 Office Visit Wound Care Luis Camara DPM [address] [place] [address] (Wo rk) documented as of this encounter Visit Diagnoses Not on filedocumented in this encounter Additional Health Concerns Infection Onset Date Last Indicated Resolved Time MRSAComment: Added from external infection. 11/07/2014/02/2021 Assessment Noted Time PHQ-9 Depression Total Score: 6 12/27/2019 9:38 AM CONSTRUCTION EQUIPMENT OVERHAULER documented as of this encounter Care Teams Low Vision Therapist Relationship Specialty Start Date End Date Clinic, [facility] PCP - General 01/20/[address] [phone] Juanis Levi PCP - General Addiction Medicine 06/29/[address] [place] [phone] Tatyana Haas APRN Assigned PCP 08/02/1801/28 DIGITAL SALES DIRECTOR [facility] [address] [facility] [address] [place], [place] [address] Stephani Pina, Assigned PCP 01/30/20 12/30/20 DRYING RACK CHANGER DIGITAL SALES DIRECTOR [address] [facility] [address] [place], [place] [address] Tatyana Haas APRN Assigned PCP 12/31/20 2 DIGITAL SALES DIRECTOR [facility] [address] [facility] [address] [place] [address] Stephani Pina, Assigned PCP 02/25/21 DRYING RACK CHANGER DIGITAL SALES DIRECTOR [address] [place], [place] [phone] Elsa Yeh, Registered Nurse Infectious Diseases 07/25/21 RN Rogelio Treadwell Assigned Musculoskeletal 08/04/21 MD August Provider [address] [place] [address] Luis Camara MD Podiatry 08/16/21 CALVIN Burnett [address] [place], [place] [phone] Camryn Christina, Assigned Surgical 09/01/21 09/07/21 MD Provider [address] [facility] [address] [place] [address] Sintia Lange PA-C Assigned Surgical 09/08/[address] [place] [address] documented as of this encounter
--- OUTSIDE RECORDS SUMMARY | 2021-11-10 00:39 | XMS_ITS | Encounter Summary ---
:1980 Author Organization [place] Address [address] [place] [address] Care Team Providers Name Role Phone Clinic, [facility] Primary Care Provide r Tatyana Haas CAUSTIC PLANT WORKER ASBESTOS WORKER Unavailable [phone] Encounter Details Date Type Department Care Team Description 12/27/2019 Travel Social History Tobacco Use Types Packs/Day [...] at Date Recorded Female 01/14/2020 10:57 AM SNACK BAR CASHIER COVID-19 Exposure Response Date Recorded In the last month, have you been in contact with No / Unsure 12/27/2019 7:20 AM SNACK BAR CASHIER someone who was confirmed or suspected to have Coronavirus / COVID-19? documented as of this encounter Plan of Treatment Upcoming Encounters Date Type Specialty Care Team Description 11/15/2021 Office Visit Wound Care Luis Camara DPM [address] [place] [address] (Wo rk) documented as of this encounter Visit Diagnoses Not on filedocumented in this encounter Additional Health Concerns Assessment Noted Time PHQ-9 Depression Total Score: 6 12/27/2019 9:38 AM SNACK BAR CASHIER documented as of this encounter Care Teams Stencil Machine Operator Relationship Specialty Start Date End Date Clinic, [facility] PCP - General 01/20/18 06/28/[address] [place] [address] Tatyana Haas APRN ASBESTOS WORKER Assigned PCP 08/02/18 01/29/20 [place] [facility] [address] [facility] [address] [place] [address] documented as of this encounter
--- OUTSIDE RECORDS SUMMARY | 2021-11-10 00:39 | XMS_ITS | Encounter Summary ---
:1980 Author Organization [place] Address [address] [facility] [place] [address] Care Team Providers Name Role Phone Clinic, [facility] Primary Care Provide r HaasTatyana APRN CRYSTAL ATTACHER Unavailable [phone] Reason for Referral Mental Health Outpatient (Routine) - Closed Specialty Diagnoses / Procedures Referred By Contact Refer red To Contact Diagnoses Moderate major depression (H) Current every day smoker Uncomplicated opioid dependence (H) Stephani Pina APRN CNP [address] [place], [place] [address] Referral ID Status Reason Start Date Expiration Date Visits Requ ested Visits Authorized [id number] Closed 01/28/2020 01/27/2021 1 1 LATOR OPERATOR Reason for Visit Reason Comments Establish Care Encounter Details Date Type Department Care Team Description 12/27/2019 Virtual Visit [facility] Stephani Pina Moderate major depression (H) (Primary Dx); [facility] [place] FARZANA Alvarez CNP Alcohol abuse, continuous; [address] Current every day smoker; [address] Uncomplicated opioid dependence (H) [place] [phone] Social History Tobacco Use Types Packs/Day Years [...] at Date Recorded Female 01/14/2020 10:57 AM REGULATOR OPERATOR COVID-19 Exposure Response Date Recorded In the last month, have you been in contact with No / Unsure 01/11/2020 8:00 PM REGULATOR OPERATOR someone who was confirmed or suspected to have Coronavirus / COVID-19? documented as of this encounter Patient Instructions Patient InstructionsStephani Pina APRN CRYSTAL ATTACHER - 12/27/2019 9:40 AM REGULATOR OPERATOR Images from the original note were not included. Patient Education Alcohol Addiction ?? Does your drinking harm yourself or others? Or has it led to other problems with your daily life? Ifso, you may be addicted to alcohol. You may have what's called an alcohol use disorder. Your healthcare provider may make this diagnosisif you have had at least 2 of these problems in a year: ?? You drink alcohol in larger amounts or for a longer period than you planned. ?? You often want to cut down or control how much you drink. Or you have often failed to do so. ?? You spend a lot of time getting alcohol, using it, or recovering from its use. ?? You crave or have a strong desire or urge to drink. ?? Your drinking makes it hard for you to be responsible at work, school, or home. ?? You keep on drinking even though you have had problems in relationships or social settings because of it. ?? You give up or miss important social, work, or other activities because of your drinking. ?? You drink alcohol at times when it's not physically safe, such as drinking then driving. ?? You keep on drinking even though you know it has caused physical or emotional problems. ?? You need more and more alcohol to get the same effects. ?? You hide how much you drink from family and friends. ?? You have withdrawal symptoms or use alcohol to avoid such symptoms. zuuka! last reviewed this educational content on 03/20/2016 ?? [id number] [employer]. [address] [place] [address], [place] [address]. All rights reserved. This information is not intended as a substitute for professional medical care. Always follow your healthcare professional's instructions. Patient Education Addiction: Your Treatment Options No single treatment for addiction works for everyone. The treatment that's best for you can depend on many factors. For many people, treatment may be a combination of medicine, behavior change, therapy, lifestyle changes, and support. Medicines Medicines can help with withdrawal symptoms. They can also reduce cravings for the addictive substance. They can blunt its feel-good effects. For example: ?? Methadone, buprenorphine, and naltrexone are used for heroin and other opioid addiction. ?? Acamprosate, disulfiram, and naltrexone are used for treating alcohol addiction. ?? Bupropion, varenicline, or nicotine replacement therapy can help with nicotine addiction. These medicines have proved to be quite helpful for people trying to overcome an addiction. Behavior change treatment ?? Motivational Interviewing. This is a type of counseling that encourages you to change your behavior. The goal is to explore and resolve any mixed feelings you have about quitting drug or alcohol use. The therapist helps you figure out and focus on your personal reasons for wanting to change. ? Cognitive behavioral therapy (CBT). In this therapy, you figure out your problem behaviors. And you learn ways to change those behaviors. For example, if anger or stress makes you want to drink, a therapist can help you learn healthy ways to manage those feelings. ?? Community reinforcement approach (PROFESSIONAL ATHLETE). This therapy uses vouchers help you follow a drug- or alcohol-free lifestyle.?? With each clean urine sample, you get a voucher to use for a reward.?? This helps you stay drug- or alcohol-free while you learn new life skills. ?? Community reinforcement and family training (CRAFT). This therapy counsels and trains your family. The therapist teaches them how to motivate you to seek or continue treatment. This therapy also helps your family recognize family situations that may encourage you to drink or use drugs.? [place] support groups. These groups are run voluntarily by non-health care??professional people.??Their purpose is to support each other emotionally and socially by sharing their experiences with substance abuse and mentoring others through the recovery process. Many of these groups are based on the 12- step recovery model, and have sessions available for every type of addiction??(for example, AA or Alcoholics Anonymous; NA or Narcotics Anonymous). ?? Individualized drug counseling (IDC). This commonly practiced form of therapy typically incorporate the disease model of addiction and the spiritual dimension of recovery while also focusing on behavioral change through participation in 12-step programs. zuuka! last reviewed this educational content on 03/20/2016 ?? [id number] [employer]. [address] [place] [address]. All rights reserved. This information is not intended as a substitute for professional medical care. Always follow your healthcare professional's instructions. Patient Education Depression: Tips to Help Yourself As your healthcare providers help treat your depression, you can also help yourself. Keep in mind that your illness affects you emotionally, physically, mentally, and socially. So full recovery will take time. Take care of your body and your soul, and be patient with yourself as you get better. Self-care ?? Educate yourself. Read about treatment and medicine options. If you have the energy, attend localconferences or support groups. Keep a list of useful websites and helpful books and use them as needed. This illness is not your fault. Don???t blame yourself for your depression. ?? Manage early symptoms. If you notice symptoms returning, experience triggers, or identify other factors that may lead to a depressive episode, get help as soon as possible. Ask trusted friends and family to monitor your behavior and let you know if they see anything of concern. ?? Work with your provider. Find a provider you can trust. Communicate honestly with that person andshare information on your treatment for depression and your reaction to medicines. ?? Be prepared for a crisis. Know what to do if you experience a crisis. Keep the phone number of a crisis hotline and know the location of your community's urgent care centers and the closest emergency department. ?? Hold off on big decisions. Depression can cloud your judgment. So wait until you feel better before making major life decisions, such as changing jobs, moving, or getting or . ?? Be patient. Recovering from depression is a process. Don???t be discouraged if it takes some timeto feel better. ?? Keep it simple. Depression saps your energy and concentration. So you won???t be able to do all the things you used to do. Set small goals and do what you can. ?? Be with others. Don???t isolate yourself--you???ll only feel worse. Try to be with other people. And take part in fun activities when you can. Go to a movie, ballgame, islam service, or social event. Talk openly with people you can trust. And accept help when it???s offered. Take care of your body People with depression often lose the desire to take care of themselves. That only makes their problems worse. During treatment and afterward, make a point to: ?? Exercise. It???s a great way to take care of your body. And studies have shown that exercise helps fight depression. Aim for 30 minutes of moderate activity a day. Walking in small blocks of time (5-10 minutes) is a good way to start, but anything that gets you moving (gardening, house cleaning) counts. ?? Don't use drugs and alcohol. These may ease the pain in the short term. But they???ll only make your problems worse in the long run. ?? Get relief from stress. Ask your healthcare provider for relaxation exercises and techniques to help relieve stress. Consider activities like meditation, yoga, or Alex Chi. ?? Eat right. A balanced and healthy diet helps keep your body healthy. ?? Get adequate sleep. Aim for 8 hours per night. Too much or too little sleep can cause other physical and emotional problems. zuuka! last reviewed this educational content on 01/17/2019 ?? [id number] [employer]. [address] [place] [address], [place] [address]. All rights reserved. This information is not intended as a substitute for professional medical care. Always follow your healthcare professional's instructions. LATOR OPERATOR documented in this encounter Progress Notes Stephani Pina APRN CNP - 12/27/2019 9:40 AM CST Stephani King is a 39 year old female who is being evaluated via a billable video visit. The patient has been notified of following: This video visit will be conducted via a call between you and your physician/provider. We have found that certain health care needs can be provided without the need for an in-person physical exam. This service lets us provide the care you need with a video conversation. If a prescription is necessarywe can send it directly to your pharmacy. If lab work is needed we can place an order for that and you can then stop by our lab to have the test done at a later time. Video visits are billed at different rates depending on your insurance coverage. Please reach out toyour insurance provider with any questions. If during the course of the call the physician/provider feels a video visit is not appropriate, you will not be charged for this service. Patient has given verbal consent for Video visit? Yes How would you like to obtain your AVS? MyChart If you are dropped from the video visit, the video invite should be resent to: Send to e-mail at: [email or web address] Will anyone else be joining your video visit? No Subjective Stephani King is a 39 year old female who presents today via video visit for the following health issues: HPI New Patient/Transfer of Care Video Start Time: 9:52 AM subutex for 10 years, was in treatment Opiates polysubstance abuse Treatment for 4 months for alcohol Trying to find outpatient treatment for this, doesn't want to do detox feels not needed at this time subutex 2 days left, her lastprovider left the clinic Review of Systems Constitutional, HEENT, cardiovascular, pulmonary, GI, , musculoskeletal, neuro, skin, endocrine and psych systems are negative, except as otherwise noted. Objective Vitals: No vitals were obtained today due to virtual visit. Physical Exam GENERAL: Healthy, alert and no distress EYES: Eyes grossly normal to inspection. No discharge or erythema, or obvious scleral/conjunctival abnormalities. RESP: No audible wheeze, cough, or visible cyanosis. No visible retractions or increased work of breathing. SKIN: Visible skin clear. No significant rash, abnormal pigmentation or lesions. NEURO: Cranial nerves grossly intact. Mentation and speech appropriate for age. PSYCH: Mentation appears normal, affect normal/bright, judgement and insight intact, normal speech and appearance well-groomed. Assessment & Plan ICD-10-CM 1. Moderate major depression (H) F32.1 MENTAL HEALTH REFERRAL - Adult; Outpatient Treatment, Addiction Medicine Provider; MH / CD Assessment Center - Assess Level of Care Needed & Treat; Mental andChemical Health Evaluation - determine appropriate level of care and admit to program; ... multivitamin w/minerals (THERA-VIT-M) tablet 2. Alcohol abuse, continuous F10.10 3. Current every day smoker F17.200 MENTAL HEALTH REFERRAL - Adult; Outpatient Treatment, Addiction Medicine Provider; MH / CD Assessment Center - Assess Level of Care Needed & Treat; Mental and Chemical Health Evaluation - determine appropriate level of care and admit to program; ... 4. Uncomplicated opioid dependence (H) F11.20 MENTAL HEALTH REFERRAL - Adult; Outpatient Treatment, Addiction Medicine Provider; MH / CD Assessment Center - Assess Level of Care Needed & Treat; Mental and Chemical Health Evaluation - determine appropriate level of care and admit to program; ... new pt to establish care, on suboxone and admits to alcoholism she is looking for programs for, sheis not sure if she needs referral. Recommended comprehensive program and consider Detox if needed Self care and managing stress, return after treatment for full health maintenance exam and fasting lab work Tobacco Cessation: reports that she has been smoking cigarettes. She has a 2.50 pack-year smoking history. She has never used smokeless tobacco. Tobacco Cessation Action Plan: Self help information given to patient BMI: Estimated body mass index is 33.09 kg/m?? as calculated from the following: Height as of 01/11/20: 1.676 m (5' 6). Weight as of 01/11/20: 93 kg (205 lb). Weight management plan: Discussed healthy diet and exercise guidelines There are no Patient Instructions on file for this visit. No follow-ups on file. Stephani Pina APRN CNP [facility] Video-Visit Details Type of service: Video Visit Video End Time:10:08 AM Originating Location (pt. Location): Home Distant Location (provider location): [facility] Platform used for Video Visit: NewsBreak LATOR OPERATOR documented in this encounter Plan of Treatment Upcoming Encounters Date Type Specialty Care Team Description 11/15/2021 Office Visit Wound Care Luis Camara DPM [address] [place] [address] (Wo rk) Scheduled Referrals Name Type Priority Associated Diagnoses Order [facility] MENTAL HEALTH REFERRAL - Referral Routine Moderate major O rdered: 01/28/2020 Adult; Outpatient depression (H) Treatment, Addiction Current every day Medicine Provider; MH / smoker CD Assessment Center - Uncomplicated opio id Assess Level of Care dependence (H) Needed & Treat; Mental and Chemical Health Evaluation - determine appropriate level of care and admit to program; ... documented as of this encounter Visit Diagnoses Diagnosis Moderate major depression (H) - Primary Major depressive disorder, single episod e, moderate Alcohol abuse, continuous Nondependent alcohol abuse, continuous d rinking behavior Current every day smoker Tobacco use disorder Uncomplicated opioid dependence (H) Opioid type dependence, unspecified documented in this encounter Additional Health Concerns Assessment Noted Time PHQ-9 Depression Total Score: 6 12/27/2019 9:38 AM REGULATOR OPERATOR documented as of this encounter Care Teams Deaf And Hard Of Hearing Teacher Relationship Specialty Start Date End Date Clinic, [facility] PCP - General 01/20/18 06/28/[address] [place] [address] Tatyana Haas APRN CRYSTAL ATTACHER Assigned PCP 08/02/18 01/29/20 [facility] [address] [facility] [address] [place] [address] documented as of this encounter
--- OUTSIDE RECORDS SUMMARY | 2021-11-10 00:39 | XMS_ITS | Encounter Summary ---
:1980 Author Organization [place] Address [address] [place] [address] Care Team Providers Name Role Phone Clinic, [facility] Primary Care Provide r HaasTatyana IT SECURITY PROJECT MANAGER LOKIE ENGINEER Unavailable [phone] Stephani Pina IT SECURITY PROJECT MANAGER LOKIE ENGINEER Unavailable Encounter Details Date Type Department Care Team Description 01/18/2020 Telephone [facility] Generic, Behavioral Behavioral Health In [address] [address] Social History Tobacco Use Types Packs/Day [...] at Date Recorded Female 01/14/2020 10:57 AM WATER SERVICE SUPERVISOR COVID-19 Exposure Response Date Recorded In the last month, have you been in contact with No / Unsure 07/12/2020 11:10 AM CDT someone who was confirmed or suspected to have Coronavirus / COVID-19? documented as of this encounter Miscellaneous Notes Telephone Encounter - Brittnee Lainez - 03/08/2020 2:53 PM CST ----- Message from OLGA Deshpande sent at 03/08/2020 1:47 PM WATER SERVICE SUPERVISOR ----- Regarding: Set up appointments for client at [facility] Patient Name: ??See above Location of programming: [facility] Start Date: 03/13/2020 Group: ([id number] M, W, TH 5:30PM Provider: OLGA Baron Number of visits to be scheduled: 17 Length/Duration of Appointment in minutes: 120 Visit Type (VIDEO/TELEPHONE/IN-PERSON): Video (0575) Additional notes: Thanks OLGA Baron R SERVICE SUPERVISOR Telephone Encounter - Brittnee Lainez - 03/02/2020 3:11 PM CST ----- Message from OLGA Deshpande sent at 03/02/2020 2:17 PM WATER SERVICE SUPERVISOR ----- Regarding: Add IOP CD Phase I appointments for client at [facility] Patient Name: ??See above Location of programming: [facility] Start Date:03/02/2020 Group: ([id number] M, T, W, TH 5:30PM Provider: OLGA Baron Number of visits to be scheduled: 5 Length/Duration of Appointment in minutes: M, W, TH 120 T 180 Visit Type (VIDEO/TELEPHONE/IN-PERSON): Video (1607) Additional notes: Thanks OLGA Baron R SERVICE SUPERVISOR Telephone Encounter - Leticia Donohue - 01/19/2020 3:16 PM CST ----- Message from OLGA Deshpande sent at 01/19/2020 2:58 PM WATER SERVICE SUPERVISOR ----- Regarding: Move 1:1 appointment for client from 01/18 to 01/19 Please move the 1:1 appointment scheduled for the above client with me for January 18 at 4:30PM to January 19 at 4:30PM at the [facility]. 2653 video appointment. My provider ID is: [id number]. Thanks OLGA Baron R SERVICE SUPERVISOR Telephone Encounter - Victoria Nunes - 01/18/2020 1:50 PM CST ----- Message from OLGA Deshpande sent at 01/17/2020 3:35 PM WATER SERVICE SUPERVISOR ----- Regarding: RE: Referring to [facility] Please arrange for a 1:1 appointment for the above client via video with me on January 2at 4:30PM. My provider ID is; [id number] Patient Name: See above?? Location of programming: [facility] Start Date: 01/19/2020 Group: ([id number] M, T, W, TH 5:30PM Provider: OLGA Baron Number of visits to be scheduled: 26 Length/Duration of Appointment in minutes: M, W, Th, 120 T 180 Visit Type (VIDEO/TELEPHONE/IN-PERSON): Video (7600) Additional notes: Thanks OLGA Baron ----- Message ----- From: June Porter LADC Sent: 01/14/2020 2:30 PM WATER SERVICE SUPERVISOR To: OLGA Deshpande, Beh Outpatient Intake Subject: Referring to [facility] Hey- I've referred this patient to [facility] evening [facility]. Comp assessment completed. She is likely to discharge from today 01/14/2020 and is instructed to follow up with Britton to schedule. Please reach out to patient to coordinate. Thanks! June #[id number] R SERVICE SUPERVISOR documented in this encounter Plan of Treatment Upcoming Encounters Date Type Specialty Care Team Description 11/15/2021 Office Visit Wound Care Luis Camara, [place] [address] [place] [id number] (Wo rk) documented as of this encounter Visit Diagnoses Diagnosis Alcohol abuse, continuous - Primary Nondependent alcohol abuse, continuous d rinking behavior documented in this encounter Additional Health Concerns Assessment Noted Time PHQ-9 Depression Total Score: 6 12/27/2019 9:38 AM WATER SERVICE SUPERVISOR documented as of this encounter Care Teams Med Surg Nurse Relationship Specialty Start Date End Date Clinic, [facility] PCP - General 01/20/18 06/28/[address] [place] [address] Tatyana Haas APRN LOKIE ENGINEER Assigned PCP 08/02/18 01/29/20 [facility] [address] [facility] [address] [place] [address] Stephani Pina APRN LOKIE ENGINEER Assigned PCP 01/30/20 12/30/[address] [place] [address] [address] [place], [place] [address] documented as of this encounter
--- OUTSIDE RECORDS SUMMARY | 2021-11-10 00:39 | XMS_ITS | Encounter Summary ---
:1980 Author Organization [place] Address [address] [place] [address]. [place] [address] Care Team Providers Name Role Phone Clinic, [facility] Primary Care Provide r Tatyana Haas RETAIL DISTRICT MANAGER PROPERTY MAN Unavailable [phone] Reason for Visit Reason Comments Alcohol Intoxication Encounter Details Date Type Department Care Team Description 02/28/2019 Emergency [facility] Eliud Manley, Alcohol withdrawal [facility] Emergency MD syndrome without Dept [facility] complication (H) [address] [place], [place] [address] [place] [address] [place] [address] [place], [place] [id number] (Wo rk) Social History Tobacco Use Types [...] at Date Recorded Female 01/14/2020 10:57 AM CATTERY OPERATOR documented as of this encounter Last Filed Vital Signs Vital Sign Reading Time Taken Comments Blood Pressure 117/76 02/28/2019 6:30 PM CATTERY OPERATOR Pulse 92 02/28/2019 6:30 PM CATTERY OPERATOR Temperature 37 ??C (98.6 ??F) 02/28/2019 1:43 PM CATTERY OPERATOR Respiratory Rate 20 02/28/2019 1:43 PM CATTERY OPERATOR Oxygen Saturation 99% 02/28/2019 6:30 PM CATTERY OPERATOR Inhaled Oxygen Concentration - - Weight 83.6 kg (184 lb 4.9 oz) 02/28/2019 1:43 PM CATTERY OPERATOR Height - - Body Mass Index 29.75 07/04/2018 9:43 PM CDT documented in this encounter Discharge Instructions Discharge InstructionsEliud Manley MD - 02/28/2019 5:37 PM CATTERY OPERATOR Please proceed to detox and follow-up with alcohol counseling when released. Please return to the emergency department as needed for new or worsening symptoms including thoughtsof self-harm or suicide, thoughts of harming other people, any other concerning symptoms. ERY OPERATOR documented in this encounter Medications at Time of Discharge Medication Sig Dispensed Refills Start Date End Date bacitracin 500 UNIT/GM Apply topically 2 30 g 1 201801/07/2020 OINTIndications: Alcohol times daily as abuse, continuous needed for wound care LP pt buprenorphine Place 1 Film under 9 Film 0 12/18/2018 HCl-naloxone HCl the tongue 3 times (SUBOXONE) 4-1 MG per daily for [address] 1 Film under 3 Film 0 01/20/2019 HCl-naloxone HCl the tongue daily for (SUBOXONE) 8-2 MG per 3 doses filmIndications: Alcohol abuse, continuous buPROPion (WELLBUTRIN Take 1 tablet (150 6 tablet 0 201904/04/2019 SR) 150 MG 12 hr tablet mg) by mouth 2 times daily for 3 days buPROPion (WELLBUTRIN Take 1 tablet (150 6 tablet 0 201804/04/2019 SR) 150 MG 12 hr tablet mg) by mouth 2 times daily buPROPion (WELLBUTRIN Take 150 mg by mouth 0 04/04/2019 SR) 150 MG 12 hr tablet 2 times daily co-enzyme Q-10 100 MG Take 100 mg by mouth 0 07/06/2021 CAPS capsule daily hydrOXYzine (ATARAX) 25 Take 1 tablet (25 30 tablet 1 07/0701/07/2020 MG tabletIndications: mg) by mouth every 4 Alcohol abuse, hours as needed for continuous anxiety levothyroxine Take 1 tablet (125 3 tablet 0 02/28/2019 (SYNTHROID/LEVOTHROID) mcg) by mouth daily 125 MCG tablet for 3 days levothyroxine Take 1 tablet (125 3 tablet 0 01/20/2019 (SYNTHROID/LEVOTHROID) mcg) by mouth every 125 MCG morning (before tabletIndications: breakfast) for 3 Alcohol abuse, days continuous multivitamin w/minerals Take 1 tablet by [...] traZODone (DESYREL) 50 Take 1 tablet (50 3 tablet 0 201801/07/2020 MG tabletIndications: mg) by mouth At Alcohol abuse, Bedtime for 3 days continuous triamcinolone (KENALOG) Apply topically 2 453.6 g 1 07/2801/07/2020 0.1 % external times daily LP pt. creamIndications: Rash and nonspecific skin eruption venlafaxine (EFFEXOR) 75 Take 0.5 tablets 6 tablet 0 02/2804/04/2019 MG tablet (37.5 mg) by mouth 2 times daily for 3 days venlafaxine (EFFEXOR-ER) Take 1 tablet (75 30 [...] documented as of this encounter ED Notes Willian Ga RN - 02/28/2019 1:41 PM CST Today pt states she had 3-4 weeks of sobriety from ETOH, pt relapsed 1/2 and has been drinking since. Pt admits to drink about 750 ml of vodka. Pt would like help going through withdrawal st she would like help to detox. Pt states last drink was 1300 today ERY OPERATOR Eliud Manley MD - 02/28/2019 1:33 PM CST History Chief Complaint: Alcohol Intoxication HPI Stephani King is a 38 year old female with past medical history of alcohol abuse, substance abuse,drug abuse, depression, and anxiety who presents to the emergency department for evaluation of alcohol intoxication. The patient reports for the last 3-4 weeks she has been sober from ETOH, but recently relapsed 1/2 day ago. She says since that time she has had 750 mL of Vodka, and her last drink was at 1300 today (two hours prior). She notes she has been having withdrawal symptoms including muscle spasms, scratching of skin, and trouble breathing. She hasn't had any vomiting. She has no history of alcohol withdrawal seizures or delirium. Due to concern she can't detox safely on her own she presented to the emergency department today. She is currently on Amoxicillin for an ear infection (on Day 4), and hasn't missed any doses. She smokes 1/2 pack of cigarettes per day. Additionally, the patient has been sent to detox twice in the past two months, and four times prior in total. She endorses congestion and cough. She denies fever, suicidal and homicidal ideations. 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 Smoking Status: Current Every Day Smoker Smokeless Tobacco: Never Used Alcohol Use: Not currently Marital Status: [2] Review of Systems Constitutional: Negative for fever. HENT: Positive for congestion. Respiratory: Positive for cough. Musculoskeletal: Muscle spasms Psychiatric/Behavioral: Negative for suicidal ideas. All other systems reviewed and are negative. Physical Exam First Vitals: BP: (!) 163/108 Pulse: 110 Heart Rate: 110 Temp: 98.6 ??F (37 ??C) Resp: 20 Weight: 83.6 kg (184 lb 4.9 oz) SpO2: 98 % Physical Exam Constitutional: Well developed, mildly tremulous, nontox appearance Head: Atraumatic. Mouth/Throat: Oropharynx is clear and tacky. Neck: no stridor Eyes: no scleral icterus Cardiovascular: Borderline regular tachycardia, 2+ bilat radial pulses Pulmonary/Chest: nml resp effort, Clear BS bilat Abdominal: ND, +BS, soft, NT, no rebound or guarding : no CVA tenderness bilat Ext: Warm, well perfused, no edema Neurological: A&O, symmetric facies, moves ext x4 Skin: Skin is warm and dry. Diffuse excoriations Psychiatric: Behavior is normal. Thought content normal. Nursing note and vitals reviewed. Emergency Department Course Imaging: Radiology findings were communicated with the patient who voiced understanding of the findings. Chest X-Ray. 2 Views: IMPRESSION: No evidence of acute cardiopulmonary disease is seen. reading per radiology. Laboratory: Laboratory findings were communicated with the patient who voiced understanding of the findings. CBC: WBC 2.3 (L), HGB 14.1, PLT 96 (L) CMP: Glucose 156 (H), Alk phos 155 (H), ALT 137 (H), AST 194 (H) o/w WNL. (Creatinine 0.72) Lipase: 145 INR: 0.92 Alcohol ethyl: 0.22 (H) Interventions: 1610 Afrin 2 sprays Nasal 1610 Ativan 1 mg IV 1619 sodium chloride 9% 1000 mL with infuvite adult 10 ml, thiamine 100 mg, folic acid 1 mg infusion Emergency Department Course: Nursing notes and vitals reviewed. 153: I performed an exam of the patient as documented above. IV was inserted and blood was drawn for laboratory testing, results above. The patient was sent for a XR Chest while in the emergency department, results above. 1703 Patient rechecked and updated. 1707 Patient rechecked and updated. The patient will be admitted to detox. I personally reviewed the laboratory and imaging results with the Patient and answered all related questions prior to detox. Impression & Plan Medical Decision Makin-year-old female presenting with concern for alcohol dependence control ?? Patient presentation consistent with mild withdrawal. She has a history of complicated withdrawal denying DTs or previous withdrawal seizures. Labs are as noted above and demonstrated leukopenia, thrombocytopenia, findings consistent with alcoholic hepatitis. Patient was given medications and fluids as noted above with improvement in symptoms. Given no history of complicated withdrawal nor significant metabolic disarray, I feel the patient is likely safe for transfer to detox for further treatment of her withdrawal. The patient was accepted at detox and subsequently transported in stable condition.Patient and [id number] counseled on results, diagnosis and disposition. They are understanding and agreeable to plan. Diagnosis: ICD-10-CM 1. Alcohol withdrawal syndrome without complication (H) F10.230 Disposition: Patient sent to detox. Scribe Disclosure: IMahsa, am serving as a scribe at 3:34 PM on 02/28/2019 to document services personally performed by Eliud Manley MD based on my observations and the provider's statements to me. Mahsa Walsh 02/28/2019 [facility] EMERGENCY DEPARTMENT Eliud Manley MD 03/02/19 0187 ERY OPERATOR documented in this encounter Plan of Treatment Upcoming Encounters Date Type Specialty Care Team Description 11/15/2021 Office Visit Wound Care Luis Camara DPM [address] [place] [id number] (Wo rk) documented as of this encounter Procedures Procedure Name Priority Date/Time Associated Comments Diagnosis XR CHEST 2 VIEWS STAT 02/28/2019 4:29 PM Resul ts for this CATTERY OPERATOR procedure are i n the results section. CBC WITH PLATELETS & STAT 02/28/2019 3:57 PM R esults for this DIFFERENTIAL CATTERY OPERATOR procedure are i n the results section. INR STAT 02/28/2019 3:57 PM Results f or this CATTERY OPERATOR procedure are i n the results section. LIPASE STAT 02/28/2019 3:57 PM Results f or this CATTERY OPERATOR procedure are i n the results section. COMPREHENSIVE STAT 02/28/2019 3:57 PM Results for this METABOLIC PANEL CATTERY OPERATOR procedure ar e in the results section. ETHYL ALCOHOL LEVEL STAT 02/28/2019 3:57 PM Re sults for this CATTERY OPERATOR procedure are i n the results section. documented in this encounter Results XR Chest 2 Views (02/28/2019 4:29 PM CATTERY OPERATOR) Anatomical Region Laterality Modality Chest Digital Radiography Specimen (Source) Anatomical Location Collection Method / Collectio n Time Received Time / Laterality Volume Impressions 02/28/2019 6:42 PM CATTERY OPERATOR IMPRESSION: No evidence of acute cardiopulmonary disease is seen. CAIO TERRAZAS MD Narrative 02/28/2019 6:42 PM CATTERY OPERATOR CHEST TWO VIEW ?? 02/28/2019 4:29 PM HISTORY: Cough, shortness of breath. COMPARISON: Chest x-rays dated 08/23/2018. FINDINGS: ??The lungs are clear. No pleu ral effusions or pneumothorax. Heart size and pulmonary vascularity are within normal limits. No acute fracture. Procedure Note Caio Terrazas MD - 02/28/2019Form atting of this note might be different from the original. CHEST TWO VIEW 02/28/2019 4:29 PM HISTORY: Cough, shortness of breath. COMPARISON: Chest x-rays dated 08/23/2018. FINDINGS: The lungs are clear. No pleura l effusions or pneumothorax. Heart size and pulmonary vascularity are within normal limits. No acute fracture. IMPRESSION: No evidence of acute cardiop ulmonary disease is seen. CAIO TERRAZAS MD Eliud Manley MD IMG DIAGNOSTIC IMAGING ORDER JEFFERY INR (02/28/2019 3:57 PM CATTERY OPERATOR) P athologist Signature INR 0.92 0.86 - 1.14 02/28/2019 [facility] 4:34 PM CATTERY OPERATOR [facility] Specimen Anatomical Collection Method Collection Time Receive d Time (Source) Location / / Volume Laterality Blood specimen 02/28/2019 3:57 PM 020 4:05 (specimen) CATTERY OPERATOR PM CATTERY OPERATOR Eliud Manley MD LAB - BLOOD ORDERABLES Performing Organization Address City/[facility]/ZIP [facility] Phon e Number [facility] [address], [place] [address] [facility] [address] [place], [place] [address], [facility] [phone] (ABNORMAL) Alcohol ethyl (02/28/2019 3:57 PM CATTERY OPERATOR) athologist Signature Ethanol g/dL 0.22 (H) <0.01 g/dL 02/28/2019 [place] 4:34 PM [facility] Specimen Anatomical Collection Method Collection Time Receive d Time (Source) Location / / Volume Laterality Blood specimen 02/28/2019 3:57 PM 020 4:05 (specimen) CATTERY OPERATOR PM CATTERY OPERATOR Eliud Manley MD LAB - BLOOD ORDERABLES Performing Organization Address [facility] Phon e Number [facility] [address], [place] [address] [facility] [address], [place] [address], [facility] [phone] Lipase (02/28/2019 3:57 PM CATTERY OPERATOR) athologist Signature Lipase 145 73 - 393 02/28/2019 [facility] U/L 4:34 PM [facility] Specimen Anatomical Collection Method Collection Time Receive d Time (Source) Location / / Volume Laterality Blood specimen 02/28/2019 3:57 PM 020 4:05 (specimen) CATTERY OPERATOR PM CATTERY OPERATOR Eliud Manley MD LAB - BLOOD ORDERABLES Performing Organization Address City/[facility]/ZIP [facility] Phon e Number [facility] [address], [place] [address] [facility] [address] [place], [place] [address] [phone] (ABNORMAL) Comprehensive metabolic panel (02/28/2019 3:57 PM [facility]) athologist Signature Sodium 140 133 - 144 02/28/2019 [facility] mmol/L 4:25 PM [facility] Potassium 3.7 3.4 - 5.3 02/28/2019 [facility] mmol/L 4:25 PM [facility] Chloride 106 94 - 109 02/28/2019 [facility] mmol/L 4:25 PM [facility] Carbon Dioxide 28 20 - 32 02/28/2019 [place] mmol/L 4:32 PM [facility] Anion Gap 6 3 - 14 02/28/2019 [place] mmol/L 4:32 PM [facility] Glucose 156 (H) 70 - 99 02/28/2019 [place] mg/dL 4:32 PM [facility] Urea Nitrogen 9 7 - 30 02/28/2019 [place] mg/dL 4:32 PM [facility] Creatinine 0.72 0.52 - 02/28/2019 [facility] 1.04 mg/dL 4:32 PM [facility] GFR Estimate >90 >60 02/28/2019 [place] mL/min/{1. 4:32 PM [facility] 73_m2} HOSPITAL Comment: Non GFR Calc Starting 02/03/2018, serum creatinine ba sed estimated GFR (eGFR) will be calculated using the Chronic Kidney Dise [facility] Epidemiology Collaboration (CKD-EPI) equation. GFR Estimate If >90 >60 mL/min/{1.73_m2} 02/28/2019 4: 32 PM [facility] Comment: GFR Calc Starting 02/03/2018, serum creatinine ba sed estimated GFR (eGFR) will be calculated using the Chronic Kidney Dise [facility] Epidemiology Collaboration (CKD-EPI) equation. Calcium 8.8 8.5 - 10.1 02/28/2019 4:32 PM [place] R IDGES mg/dL [facility] Bilirubin Total 0.5 0.2 - 1.3 mg/dL 02/28/2019 4:34 PM [facility] Albumin 3.8 3.4 - 5.0 g/dL 02/28/2019 4:34 PM [facility] Protein Total 8.5 6.8 - 8.8 g/dL 02/28/2019 4:[address] [facility] Alkaline Phosphatase 155 (H) 40 - 150 U/L 02/28/2019 4:34 PM [facility] ALT 137 (H) 0 - 50 U/L 02/28/2019 4:34 PM [facility] AST 194 (H) 0 - 45 U/L 02/28/2019 4:34 PM [facility] Specimen Anatomical Collection Method Collection Time Receive d Time (Source) Location / / Volume Laterality Blood specimen 02/28/2019 3:57 PM 020 4:05 (specimen) CATTERY OPERATOR PM CATTERY OPERATOR Eliud Manley MD LAB - BLOOD ORDERABLES Performing Organization Address City/State/ZIP Code Phon e Number [place] [address] [place] [address] [facility] [address] [phone] (ABNORMAL) CBC with platelets differential (02/28/2019 3:57 PM CATTERY OPERATOR) [facility] Method Time Signature WBC 2.3 (L) 4.0 - 02/28/2019 [facility] 11.0 4:11 PM [facility] 10e9/L [facility] RBC Count 4.22 3.8 - 5.2 02/28/2019 [facility] 10e12/L 4:11 PM [facility] Hemoglobin 14.1 11.7 - 02/28/2019 [facility] 15.7 g/dL 4:11 PM [facility] Hematocrit 41.7 35.0 - 02/28/2019 [facility] 47.0 % 4:11 PM [facility] MCV 99 78 - 100 02/28/2019 [facility] fl 4:11 PM [facility] MCH 33.4 (H) 26.5 - 02/28/2019 [facility] 33.0 pg 4:11 PM [facility] MCHC 33.8 31.5 - 02/28/2019 [facility] 36.5 g/dL 4:11 PM [facility] RDW 13.0 10.0 - 02/28/2019 [facility] 15.0 % 4:11 PM [facility] Platelet Count 96 (L) 150 - 450 02/28/2019 [facility] 10e9/L 4:11 PM [facility] Diff Method Automated 02/28/2019 [facility] Method 4:11 PM [facility] % Neutrophils 62.0 % 02/28/2019 [facility] 4:11 PM [facility] % Lymphocytes 32.8 % 02/28/2019 [facility] 4:11 PM [facility] % Monocytes 3.5 % 02/28/2019 [facility] 4:11 PM [facility] % Eosinophils 0.4 % 02/28/2019 [facility] 4:11 PM [facility] % Basophils 0.9 % 02/28/2019 [facility] 4:11 PM [facility] % Immature 0.4 % 02/28/2019 [facility] Granulocytes 4:11 PM [facility] Nucleated RBCs 0 0 /100 02/28/2019 [facility] 4:11 PM [facility] Absolute 1.4 (L) 1.6 - 8.3 02/28/2019 [facility] Neutrophil 10e9/L 4:11 PM [facility] Absolute 0.8 0.8 - 5.3 02/28/2019 [facility] Lymphocytes 10e9/L 4:11 PM [facility] Absolute 0.1 0.0 - 1.3 02/28/2019 [facility] Monocytes 10e9/L 4:11 PM [facility] Absolute 0.0 0.0 - 0.7 02/28/2019 [facility] Eosinophils 10e9/L 4:11 [address] [facility] Absolute 0.0 0.0 - 0.2 02/28/2019 [facility] Basophils 10e9/L 4:11 PM [facility] Abs Immature 0.0 0 - 0.4 02/28/2019 [facility] Granulocytes 10e9/L 4:11 PM [facility] Absolute 0.0 02/28/2019 [facility] Nucleated RBC 4:11 PM [facility] Specimen Anatomical Collection Method Collection Time Receive d Time (Source) Location / / Volume Laterality Blood specimen 02/28/2019 3:57 PM 020 4:05 (specimen) CATTERY OPERATOR PM CATTERY OPERATOR Eliud Manley MD LAB - BLOOD ORDERABLES Performing Organization Address City/State/ZIP Code Phon e Number M [facility] [address] [place], [place] [address] [facility] [address] [place], [place] [address] [facility] [phone] documented in this encounter Visit Diagnoses Diagnosis Alcohol withdrawal syndrome without comp lication (H) documented in this encounter Administered Medications Inactive Administered Medications - up to 3 most recent administrations Medication Order MAR Action Action Date Dose Rate Site LORazepam (ATIVAN) injection 1 mg Given 02/28/2019 4:10 PM CATTERY OPERATOR 1 mg 1 mg, Intravenous, ONCE, On 02/28/19 at 1547, For 1 dose, This drug may cause significant respiratory depression. Monitor respiratory status and vital signs carefully for 1 hour after each dose. oxymetazoline (AFRIN) 0.05 % spray 2 spr ay Given 02/28/2019 4:10 PM CATTERY OPERATOR 2 sprays 2 spray, Nasal, ONCE, On 02/28/19 at 1551, For 1 dose, Use for more than 3 consecutive days may cause rebound vasodilation. sodium chloride 0.9 % 1,000 mL with New Bag 02/28/2019 4:19 PM CATTERY OPERATOR 1000 mL/hr Infuvite Adult 10 mL, thiamine 100 mg, folic acid 1 mg infusion 1,000 mL, at 1,000 mL/hr, Intravenous, ONCE, 1 dose, On 02/28/19 at 1547 documented in this encounter Active and Recently Administered Medications Times are shown in CATTERY OPERATOR. Scheduled Medication Order 02/26/2019 02/27/2019 02/28/2019 LORazepam (ATIVAN) injection 1 mg (COMPLETED) 1609 (Given - Provider: Tarsha Lange RN) 1 mg, Intravenous, ONCE, 02/28/19 at 1547, For 1 dose, This drug may cause significant respiratory depression. Monitor respiratory status and vital signs carefully for 1 hour after each dose. oxymetazoline (AFRIN) 0.05 % spray 2 spray (COMPLETED) 1609 (Given - Provider: Tarsha Lange RN) 2 spray, Nasal, ONCE, 02/28/19 at 155 1, For 1 dose, Use for more than 3 consecutive days may cause rebound vasodilation. sodium chloride 0.9 % 1,000 mL with Infu lacy Adult 10 mL, thiamine 100 mg, folic acid 1 mg infusion (COMPLETED) 161 (Ne w Bag - Provider: Tarsha Lange, RN)1742 (Stopped - Provider: Nga Pina, RN) 1,000 mL, at 1,000 mL/hr, Intravenous, ONCE, 1 dose, 02/28/19 at 1547 documented in this encounter Additional Health Concerns Assessment Noted Time PHQ-9 Depression Total Score: 10 07/08/2018 1:27 PM CD T documented as of this encounter Care Teams Board Finisher Relationship Specialty Start Date End Date Clinic, [facility] PCP - General 01/20/18 06/28/[address] [place] [address] [id number] Tatyana Haas APRN PROPERTY MAN Assigned PCP 08/02/18 01/29/20 [facility] [address] [facility] [address] [place] [address] documented as of this encounter
--- OUTSIDE RECORDS SUMMARY | 2021-11-10 00:39 | XMS_ITS | Encounter Summary ---
:1980 Author Organization [facility] Address [address] [place] [address]. [place] [address] Care Team Providers Name Role Phone Clinic, [facility] Primary Care Provide r Tatyana Haas Sanju COLDFUSION VERIFY REP Unavailable [phone] Reason for Visit Reason Onset Date Comments No Show 12/22/2018 Encounter Details Date Type Department Care Team Description [facility] Fedora FARZANA Alvarez VERIFY REP [address] [place] [address] [place] [address] [address] [place] [address] [phone] Social History Tobacco Use Types Packs/Day Years [...] at Date Recorded Female 01/14/2020 10:57 AM CLIENT ACCOUNT MANAGER documented as of this encounter Progress Notes Alexander Linda MA - 12/22/2018 10:00 AM CST This patient was a no show for this scheduled appointment. NT ACCOUNT MANAGER documented in this encounter Plan of Treatment Upcoming Encounters Date Type Specialty Care Team Description 11/15/2021 Office Visit Wound Care Luis Camara DPM [address] [place] [address] (Wo rk) documented as of this encounter Visit Diagnoses Diagnosis NO SHOW - Primary documented in this encounter Additional Health Concerns Assessment Noted Time PHQ-9 Depression Total Score: 10 07/08/2018 1:27 PM CD T documented as of this encounter Care Teams Test Engine Operator Relationship Specialty Start Date End Date Clinic, [facility] PCP - General 01/20/18 06/28/[address] [place] [id number] Tatyana Haas APRN VERIFY REP Assigned PCP 08/02/18 01/29/20 [place] [facility] [address] [facility] [address] [place] [address] documented as of this encounter
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
--- OUTSIDE RECORDS SUMMARY | 2021-11-10 00:39 | XMS_ITS | Encounter Summary ---
:1980 Author Organization [place] Address [address] [place] [address] Care Team Providers Name Role Phone Clinic, [facility] Primary Care Provide r Tatyana Haas SINKER WINDER INTERNET DATABASE SPECIALIST Unavailable [phone] Encounter Details Date Type Department Care Team Description 08/23/2018 Travel Social History Tobacco Use Types Packs/Day [...] Date Recorded Female 01/14/2020 10:57 AM MANAGER ENVIRONMENTAL HEALTH AND SAFETY documented as of this encounter Plan of Treatment Upcoming Encounters Date Type Specialty Care Team Description 11/15/2021 Office Visit Wound Care Luis Camara DPM [address] [place] [address] (Wo rk) documented as of this encounter Visit Diagnoses Not on filedocumented in this encounter Additional Health Concerns Assessment Noted Time PHQ-9 Depression Total Score: 10 07/08/2018 1:27 PM CD T documented as of this encounter Care Teams Business Development Professional Relationship Specialty Start Date End Date Clinic, [facility] PCP - General 01/20/18 06/28/[address] [place] [address] [id number] Tatyana Haas APRN INTERNET DATABASE SPECIALIST Assigned PCP 08/02/18 01/29/20 [facility] [address] [facility] [address] [place] [address] documented as of this encounter
--- OUTSIDE RECORDS SUMMARY | 2021-11-10 00:39 | XMS_ITS | Encounter Summary ---
:1980 Author Organization [place] Address [facility] [place] [address] Care Team Providers Name Role Phone Clinic, [facility] Primary Care Provide r Tatyana Haas IMPROVEMENT INTERN CLEANING SUPERVISOR Unavailable [phone] Reason for Visit Reason Onset Date Comments No Show 12/28/2018 Encounter Details Date Type Department Care Team Description 12/28/2018 Office Visit [facility] [place], NO SHOW (P rimary Dx) Clinic [place] ROSLYN Russ [address] [place] [address] [address] [facility] [address] [place] [address] [phone] Social History Tobacco Use Types Packs/Day Years [...] Date Recorded Female 01/14/2020 10:57 AM SENIOR FUNCTIONAL ANALYST documented as of this encounter Progress Notes Alexander Linda MA - 12/28/2018 10:40 AM CST This patient was a no show for this scheduled appointment. OR FUNCTIONAL ANALYST documented in this encounter Plan of Treatment Upcoming Encounters Date Type Specialty Care Team Description 11/15/2021 Office Visit Wound Care Luis Camara DPM [address] [place] [address] (Wo rk) documented as of this encounter Visit Diagnoses Diagnosis NO SHOW - Primary documented in this encounter Additional Health Concerns Assessment Noted Time PHQ-9 Depression Total Score: 10 07/08/2018 1:27 PM CD T documented as of this encounter Care Teams Shearing Machine Tender Relationship Specialty Start Date End Date Clinic, [facility] PCP - General 01/20/18 06/28/[address] [place] [address] Tatyana Haas, IMPROVEMENT INTERN CLEANING SUPERVISOR Assigned PCP 08/02/18 01/29/20 [place] [facility] [address] [facility] [address] [place] [address] documented as of this encounter
--- OUTSIDE RECORDS SUMMARY | 2021-11-10 00:39 | XMS_ITS | Encounter Summary ---
:1980 Author Organization [facility] Address [address] [place] [id number] Care Team Providers Name Role Phone Clinic, [facility] Primary Care Provide r Tatyana Haas TRANSIT WORKER [employer]ER Unavailable [phone] Encounter Details Date Type Department Care Team Description 01/20/2019 Travel Social History Tobacco Use Types Packs/Day [...] at Date Recorded Female 01/14/2020 10:57 AM [employer]OT[employer] SETTER documented as of this encounter Plan of Treatment Upcoming Encounters Date Type Specialty Care Team Description 11/15/2021 Office Visit Wound Care Luis Camara DPM [address] [place] [address] (Wo rk) documented as of this encounter Visit Diagnoses Not on filedocumented in this encounter Additional Health Concerns Assessment Noted Time PHQ-9 Depression Total Score: 10 07/08/2018 1:27 PM CD T documented as of this encounter Care Teams Service Transformer Repair Supervisor Relationship Specialty Start Date End Date Clinic, [facility] PCP - General 01/20/18 06/28/[address] [place] [address] [id number] Tatyana Haas APRN [employer]ER Assigned PCP 08/02/18 01/29/20 [facility] [address] [facility] [address] [place] [address] documented as of this encounter
--- OUTSIDE RECORDS SUMMARY | 2021-11-10 00:39 | XMS_ITS | Encounter Summary ---
:1980 Author Organization [place] Address [address] [place] [address]. 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 Unavailable [phone] Reason for Visit Reason Comments Chest Pain Encounter Details Date Type Department Care Team Description 08/23/2018 Emergency [facility] Sandra Moreno intoxication without complication (H); [facility] Emergency Dep zuhair Alvarez MD Chest pain, unspecified type; [address] [facility] [place] [id number] (Wo rk) Social History Tobacco Use Types [...] at Date Recorded Female 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/2020 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 Hydrate and push fluids. Your potassium is low, have it rechecked on Friday. No more alcohol! AttachmentsThe following attachments cannot be sent through Care Everywhere. Alcohol Intoxication (Singaporean)Hypokalemia (Singaporean)Chest Pain, Uncertain Cause (Singaporean)documented in this encounter Medications at Time of [...] documented as of this encounter ED Notes Helena Ray RN - 08/23/2018 1:38 AM CDT Pt arrives via EMS with left sided chest pain that radiates to the left shoulder and back. Pain has been on going for 2-3 months but states tonight after bending over it was worse. Pt states she got dizzy and started hyperventilating. Currently denies pain. Admits to drinking vodka tonight and was released from treatment for alcohol in July. 324 ASA given via EMS Willian Liu RN - 08/23/2018 1:31 AM CDT Bed: ED10 Expected date: 08/23/18 Expected time: 1:23 AM Means of arrival: Comments: A597, 37F Sandra Moreno MD - 08/23/2018 1:31 AM CDT History Chief Complaint: Chest Pain/numbness HPI Stephani Reddy is a 37 year old female, with history of substance abuse, alcohol abuse and diagnosis of anxiety amongst others as noted below, who presents alone via EMS for evaluation of worsening left sided sharp chest pain that began intermittently this morning but resolved. Patient admits the symptoms have been ongoing intermittently for the last 2-3 months, but states tonight worsened after bending over. The chest pain radiated into the left shoulder and back. She began to experience dizzinessand hyperventilated, thus called EMS. No heartburn. No nausea. En route, EMS provided a dose of aspirin. Here in the ED, patient admits to drinking vodka tonight and was released from alcohol treatment in July. She states she has had experienced a mild cough and felt diaphoretic and some tingling in her face and that her pain is not pleuritic in nature. She states she started new medication and got off some medication. No leg pain/swelling. No personal or FH of DVT. 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 Smoking Status: Yes - current every day smoker Smokeless Tobacco: No Alcohol Use: Yes Drug Use: Former - Suboxone Marital Status: [2] Review of Systems Constitutional: Positive for diaphoresis. Respiratory: Positive for cough. Cardiovascular: Positive for chest pain. Neurological: Positive for dizziness. All other systems reviewed and are negative. Pt arrives via EMS with left sided chest pain that radiates to the left shoulder and back. Pain has been on going for 2-3 months but states tonight after bending over it was worse. Pt states she got dizzy and started hyperventilating. Currently denies pain. Admits to drinking vodka tonight and was released from treatment for alcohol in July. 324 ASA given via EMS Physical Exam Vitals: Patient Vitals for the past 24 hrs: BP Temp Temp src Pulse Heart Rate Resp SpO2 Weight 08/23/18 0430 109/68 -- -- 87 -- -- 96 % -- 08/23/18 0415 117/76 -- -- 83 -- -- 95 % -- 08/23/18 0400 120/73 -- -- 90 -- -- -- -- 08/23/18 0300 123/84 -- -- 92 92 -- 98 % -- 08/23/18 0200 129/74 -- -- 96 96 -- 96 % -- 08/23/18 0137 -- 98.4 ??F (36.9 ??C) Oral -- -- -- -- -- 08/23/18 0135 (!) 144/93 -- -- -- 93 18 97 % 86.2 kg (190 lb) Physical Exam GEN: patient appears anxious, intoxication noted HEAD: atraumatic, normocephalic EYES: pupils reactive (3plus to 2plus), extraocular muscles with horizontal nystagmus, conjunctivae normal ENT: TMs flat and white bilaterally, oropharynx normal with no erythema or exudate, mucus membranes dry NECK: no cervical LAD RESPIRATORY: no tachypnea, breath sounds clear to auscultation (no rales, wheezes, rhonchi), chest wall nontender, normal phonation CVS: normal S1/S2, no murmurs/rubs/gallops ABDOMEN: soft, nontender, no masses or organomegaly, no rebound, decreased bowel sounds BACK: no costovertebral angle tenderness EXTREMITIES: intact pulses x 4, full range of motion at joints, no edema MUSCULOSKELETAL: no deformities SKIN: warm and dry, no acute rashes NEURO: GCS 15, cranial nerves intact. Motor- moves all 4 extremities, gravity prospecting operator 5/5. DF and PF 5/5. Sensation- intact arms and face and legs. Coordination- ambulatory. Overall symmetrical exam HEME: no bruising or petechiae/contusions LYMPH: no lymphadenopathy Emergency Department Course ECG: ECG taken at 0136, ECG read at [address] Sandra Moreno MD Normal sinus rhythm Prolonged QT Abnormal ECG Rate 92 bpm. WY interval 160. QRS duration 102. QT/QTc 390/482. P-R-T axes 40 70 33. Imaging: Radiology findings were communicated with the patient who voiced understanding of the findings. XR Chest: IMPRESSION: No infiltrates or other acute findings. Heart size is within normal limits. Reading per radiology. Laboratory: Laboratory findings were communicated with the patient who voiced understanding of the findings. CBC: WBC 3.9 (L), PLT 84 (L) o/w WNL (HGB 12.8) BMP: Potassium 2.7 (L), Bun 6 (L) o/w WNL (Creatinine 0.55) Troponin (Collected 0144): <0.015 HCG Qualitative (Blood): Negative Alcohol Ethyl: 0.19 (H) UA with Microscopic: Protein Albumin Urine 20 (A), Urobilinogen mg/dL >12.0 (H), Mucous Urine Present (A) o/w WNL Interventions: 0154 Toradol 15 mg IV 0155 0.9% NaCl Bolus 1000 mL IV 0245 Potassium Chloride 20 mEq PO 0313 Potassium Chloride 10 mEq IV Heplock Cardiac/Sp02 monitoring Emergency Department Course: Nursing notes and vitals reviewed. EKG obtained in the ED, see results above. IV was inserted and blood was drawn for laboratory testing, results above. The patient provided a urine sample here in the emergency department. This was sent for laboratory testing, findings above. The patient was sent for a XR Chest while in the emergency department, results above. (0144) I performed an exam of the patient as documented above. History obtained from patient. 2:51 AM recheck 4:02 AM recheck, patient sleeping BP 109/68 Pulse 87 Temp 98.4 ??F (36.9 ??C) (Oral) Resp 18 Wt 86.2 kg (190 lb) LMP 05/24/2016 (Approximate) SpO2 96% BMI 30.67 kg/m?? (0435) Rechecked patient. 4:49 AM Awaiting on sober ride, patient calling for family Discussed results with patient. Gave patient copies of all results (applicable labs, CT scans and/orultrasounds). Answered questions. Asked patient to followup with PCP. Circled any abnormal lab values and asked patient to followup with PCP. (0450) Patient's mother has arrived to draft roller picker patient. (0452) Rechecked patient. (0504) Spoke with patient's mother. I discussed the treatment plan with the patient. They expressed understanding of this plan and consented to discharge. They will be discharged home with instructions for care and follow up. In addition, the patient will return to the emergency department if their symptoms persist, worsen, if new symptoms arise or if there is any concern. All questions were answered. I personally reviewed the laboratory results with the Patient and answered all related questions prior to discharge. BP 104/67 Pulse 88 Temp 98.4 ??F (36.9 ??C) (Oral) Resp 18 Wt 86.2 kg (190 lb) LMP 05/24/2016 (Approximate) SpO2 99% BMI 30.67 kg/m?? Mom at the bedside, sober, and willing to take patient home. Went over results with the family. Impression & Plan Medical Decision Making: Stephani Reddy is a 37 year old female who describes chest pain that hurts in the middle, but has been going on for months. The patient does admit to drinking vodka tonight and in fact her alcohol is a 0.19. No hypoxia or tachycardia. Her EKG did not show any obvious ST elevation, myocardial infarction. IV placed and labs sent. IV hydration started. Toradol was administered. Her chest x-ray was normal. Troponin was normal. HCG is negative. Potassium was low at 2.7 and she was given an oral and IV potassium. White blood cell count was a little bit low at 3.9 and urinalysis is otherwise normal. Assuming we can find a sober ride for her, the plan is to send her home. She should avoid alcohol. There is no sign of cardiac ischemia. She's to follow up with primary care on Friday and recheck the potassium. She's given copies of her studies. CXR with no wide mediastinum or infiltrates. Addendum- Mom was at the bedside and agrees to take her home. I went over the lab results. Plan to get potassium rechecked on Friday. Diagnosis: ICD-10-CM 1. Alcoholic intoxication without complication (H) F10.920 2. Chest pain, unspecified type R07.9 3. Hypokalemia E87.6 Disposition: Discharged. Instructions to patient: No heart attack at this time. Hydrate and push fluids. Your potassium is low, have it rechecked on Friday. No more alcohol! Scribe Disclosure: Kayla Powers, am serving as a scribe at 1:39 AM on 08/23/2018 to document services personally performed by Sandra Moreno MD, based on my observations and the provider's statements to me. 08/23/2018 [facility] EMERGENCY DEPARTMENT Sandra Moreno MD 08/23/181814 documented in this encounter Plan of Treatment Upcoming Encounters Date Type Specialty Care Team Description 11/15/2021 Office Visit Wound Care Luis Camara, [place] [address] [place] [address] (Wo rk) documented as of this encounter Procedures Procedure Name Priority Date/Time Associated Comments Diagnosis XR CHEST 2 VIEWS STAT 08/23/2018 3:32 AM Resul ts for this CDT procedure are i n the results section. ROUTINE UA WITH STAT 08/23/2018 2:55 AM Result s for this MICROSCOPIC CDT procedure are i n the results section. CBC WITH PLATELETS & STAT 08/23/2018 1:44 AM R esults for this DIFFERENTIAL CDT procedure are i n the results section. TROPONIN I STAT 08/23/2018 1:44 AM Results f or this CDT procedure are i n the results section. HCG QUALITATIVE STAT 08/23/2018 1:44 AM Result s for this CDT procedure are i n the results section. ETHYL ALCOHOL LEVEL Routine 08/23/2018 1:44 AM Re sults for this CDT procedure are i n the results section. BASIC METABOLIC PANEL STAT 08/23/2018 1:44 AM Results for this CDT procedure are i n the results section. EKG 12-LEAD, TRACING STAT 08/23/2018 1:36 AM R esults for this ONLY CDT procedure are i n the results section. documented in this encounter Results XR Chest 2 Views (08/23/2018 3:32 AM CDT) Anatomical Region Laterality Modality Chest Digital Radiography Specimen (Source) Anatomical Location Collection Method / Collectio n Time Received Time / Laterality Volume Impressions 08/23/2018 7:28 AM CDT IMPRESSION: No infiltrates or other acute findings. Heart size is within normal limits. SHUKRI REDDY MD Narrative 08/23/2018 7:28 AM CDT XR CHEST 2 VIEWS ?? 08/23/2018 3:32 AM INDICATION: Chest pain. COMPARISON: 01/20/2018. Procedure Note Shukri Reddy MD - 08/23/2018F ormatting of this note might be different from the original. XR CHEST 2 VIEWS 08/23/2018 3:32 AM INDICATION: Chest pain. COMPARISON: 01/20/2018. IMPRESSION: No infiltrates or other acut e findings. Heart size is within normal limits. SHUKRI REDDY MD Sandra Moreno MD IMG DIAGNOSTIC IMAGING ORDER JEFFERY (ABNORMAL) UA with Microscopic (08/23/2018 2:55 AM CDT) [facility] Method Time Signature Color Urine Yellow 08/23/2018 [facility] 3:04 AM [facility] Appearance Urine Clear 08/23/2018 [facility] 3:04 AM [facility] Glucose Urine Negative NEG^Negat 08/23/2018 [facility] [place] mg/dL 3:04 AM [facility] Bilirubin Urine Negative NEG^Negat 08/23/2018 [facility] paula 3:04 AM [facility] Ketones Urine Negative NEG^Negat 08/23/2018 [facility] [place] mg/dL 3:04 AM [facility] Specific Kimberly 1.020 1.003 - 08/23/2018 [facility] Urine 1.035 3:04 AM [facility] Blood Urine Negative NEG^Negat 08/23/2018 [facility] paula 3:04 AM [facility] pH Urine 6.5 5.0 - 7.0 08/23/2018 [facility] pH 3:04 AM [facility] Protein Albumin 20 (A) NEG^Negat 08/23/2018 [facility] Urine paula mg/dL 3:04 AM [facility] Urobilinogen >12.0 (H) 0.0 - 2.0 08/23/2018 [facility] mg/dL mg/dL 3:04 AM [facility] Nitrite Urine Negative NEG^Negat 08/23/2018 [facility] [place]ula 3:04 AM [facility] Leukocyte Negative NEG^Negat 08/23/2018 [facility] Esterase Urine [place] 3:04 AM [facility] Source Midstream 08/23/2018 [facility] Urine 2:55 AM [facility] WBC Urine <1 0 - 5 08/23/2018 [facility] /HPF 3:04 AM [facility] RBC Urine <1 0 - 2 08/23/2018 [facility] /HPF 3:04 AM [facility] Squamous 1 0 - 1 08/23/2018 [facility] Epithelial /HPF /HPF 3:04 AM [facility] Mucous Urine Present (A) NEG^Negat 08/23/2018 [facility] [place] /LPF 3:04 AM [facility] Hyaline Casts 1 0 - 2 08/23/2018 [facility] /LPF 3:04 AM [facility] Specimen (Source) Anatomical Collection Method Collection Time Re ceived Time Location / / Volume Laterality Examination of URINE SPECIMEN 08/23/2018 2:55 08/24/19 19 3:00 midstream urine OBTAINED BY CLEAN [facility] specimen CATCH PROCEDURE / (procedure) Unknown Sandra Moreno MD LAB - URINE ORDERABLES Performing Organization Address City/State/ZIP Code Phon e Number M [facility] [address], [place] [address] [facility] [address] [phone] (ABNORMAL) Alcohol ethyl (08/23/2018 1:44 AM CDT) athologist Signature Ethanol g/dL 0.19 (H) <0.01 g/dL 08/23/2018 [facility] 2:52 AM [facility] Specimen Anatomical Collection Method Collection Time Receive d Time (Source) Location / / Volume Laterality 08/23/2018 1:44 AM 9 1:49 CDT AM CDT Sandra Moreno MD LAB - BLOOD ORDERABLES Performing Organization Address City/[facility]/ZIP [facility] [place] Phon e Number M [facility] [address] [place] [address] [facility] [address] [place] [address], U [phone] HCG QUALitative (blood) (08/23/2018 1:44 AM CDT) [facility] gist Method Time Signature HCG Qualitative Negative NEG^Negati 08/23/2018 [facility] Serum ve 2:10 AM [facility] Comment: This test is for screening purposes. ??R esults should be interpreted along with the clinical picture. ??Confirmation te sting is available if warranted by ordering [id number], HCG Quantitative Pregna ncy. Specimen Anatomical Collection Method Collection Time Receive d Time (Source) Location / / Volume Laterality Blood specimen 08/23/2018 1:44 AM 019 1:49 (specimen) CDT AM CDT Sandra Moreno MD LAB - BLOOD ORDERABLES Performing Organization Address City/[facility] Code Phon e Number M [facility] [address], [place] [address] [facility] [address] [phone] Troponin I (08/23/2018 1:44 AM CDT) athologist Signature Troponin I ES <0.015 0.000 - 08/23/2018 [facility] 0.045 ug/L 2:13 AM [facility] Comment: The 99th percentile for upper reference range is 0.045 ug/L. ??Troponin values in the range of 0.045 - 0.120 ug/L may b e associated with risks of adverse clinical events. Specimen Anatomical Collection Method Collection Time Receive d Time (Source) Location / / Volume Laterality Blood specimen 08/23/2018 1:44 AM 019 1:49 (specimen) CDT AM CDT Sandra Moreno MD LAB - BLOOD ORDERABLES Performing Organization Address City/State/ZIP Code Phon e Number M [place] [address], [place] [address] [facility] [address] [phone] (ABNORMAL) Basic metabolic panel (08/23/2018 1:44 AM CDT) athologist Signature Sodium 141 133 - 144 08/23/2018 [facility] mmol/L 2:04 AM [facility] Potassium 2.7 (L) 3.4 - 5.3 08/23/2018 [facility] mmol/L 2:04 AM [facility] Chloride 105 94 - 109 08/23/2018 [facility] mmol/L 2:04 AM [facility] Carbon Dioxide 26 20 - 32 08/23/2018 [facility] mmol/L 2:08 AM [facility] Anion Gap 10 3 - 14 08/23/2018 [facility] mmol/L 2:08 AM [facility] Glucose 99 70 - 99 08/23/2018 [facility] mg/dL 2:08 AM [facility] Urea Nitrogen 6 (L) 7 - 30 08/23/2018 [facility] mg/dL 2:08 AM [facility] Creatinine 0.55 0.52 - 08/23/2018 [facility] 1.04 mg/dL 2:08 AM [facility] GFR Estimate >90 >60 08/23/2018 [facility] mL/min/{1. 2:08 AM [facility] 73_m2} [facility] Comment: Non GFR Calc Starting 02/03/2018, serum creatinine ba sed estimated GFR (eGFR) will be calculated using the Chronic Kidney Dise ase Epidemiology Collaboration (CKD-EPI) equation. GFR Estimate If >90 >60 mL/min/{1.73_m2} 08/23/2018 2: 08 AM [facility] Comment: GFR Calc Starting 02/03/2018, serum creatinine ba sed estimated GFR (eGFR) will be calculated using the Chronic Kidney Dise ase Epidemiology Collaboration (CKD-EPI) equation. Calcium 8.5 8.5 - 10.1 mg/dL 08/23/2018 2:[address] [facility] Specimen Anatomical Collection Method Collection Time Receive d Time (Source) Location / / Volume Laterality Blood specimen 08/23/2018 1:44 AM 019 1:49 (specimen) CDT AM CDT Sandra Moreno MD LAB - BLOOD ORDERABLES Performing Organization Address City/State/ZIP Code Phon e Number [address] [address] [facility] [address] [place], [place] [address] [address] [phone] [address], [phone] [facility] (ABNORMAL) CBC with platelets differential (08/23/2018 1:44 AM CDT) [facility] Method Time Signature WBC 3.9 (L) 4.0 - 08/23/2018 [facility] 11.0 1:52 AM [facility] 10e9/L [facility] RBC Count 3.96 3.8 - 5.2 08/23/2018 [facility] 10e12/L 1:52 AM [facility] Hemoglobin 12.8 11.7 - 08/23/2018 [facility] 15.7 g/dL 1:52 AM [facility] Hematocrit 37.3 35.0 - 08/23/2018 [facility] 47.0 % 1:52 AM [facility] MCV 94 78 - 100 08/23/2018 [facility] fl 1:52 AM [facility] MCH 32.3 26.5 - 08/23/2018 [facility] 33.0 pg 1:52 AM [facility] MCHC 34.3 31.5 - 08/23/2018 [facility] 36.5 g/dL 1:52 AM [facility] RDW 12.3 10.0 - 08/23/2018 [facility] 15.0 % 1:52 AM [facility] Platelet Count 84 (L) 150 - 450 08/23/2018 [facility] 10e9/L 1:52 AM [facility] Diff Method Automated 08/23/2018 [facility] Method 1:52 AM [facility] % Neutrophils 29.6 % 08/23/2018 [facility] 1:52 AM [facility] % Lymphocytes 59.7 % 08/23/2018 [facility] 1:52 AM [facility] % Monocytes 8.2 % 08/23/2018 [facility] 1:52 AM [facility] % Eosinophils 2.0 % 08/23/2018 [facility] 1:52 AM [facility] % Basophils 0.5 % 08/23/2018 [facility] 1:52 AM [facility] % Immature 0.0 % 08/23/2018 [facility] Granulocytes 1:52 AM [facility] Nucleated RBCs 0 0 /100 08/23/2018 [facility] 1:52 AM [facility] Absolute 1.2 (L) 1.6 - 8.3 08/23/2018 [facility] Neutrophil 10e9/L 1:52 AM [facility] Absolute 2.3 0.8 - 5.3 08/23/2018 [facility] Lymphocytes 10e9/L 1:52 AM [facility] Absolute 0.3 0.0 - 1.3 08/23/2018 [facility] Monocytes 10e9/L 1:52 AM [facility] Absolute 0.1 0.0 - 0.7 08/23/2018 [facility] Eosinophils 10e9/L 1:52 AM [facility] Absolute 0.0 0.0 - 0.2 08/23/2018 [facility] Basophils 10e9/L 1:52 AM [facility] Abs Immature 0.0 0 - 0.4 08/23/2018 [facility] Granulocytes 10e9/L 1:52 AM [facility] Absolute 0.0 08/23/2018 [facility] Nucleated RBC 1:52 AM [facility] Specimen Anatomical Collection Method Collection Time Receive d Time (Source) Location / / Volume Laterality Blood specimen 08/23/2018 1:44 AM 019 1:49 (specimen) CDT AM CDT Sandra Moreno MD LAB - BLOOD ORDERABLES Performing Organization Address City/State/ZIP Code Phon e Number [facility] [address], [place] [address] [facility] [address] [place], [place] [address], [facility] [phone] EKG 12 lead (08/23/2018 1:36 AM CDT) [facility] gist Method Time Signature Interpretation ECG Click View RADIOLOGY Image link RESULTS to view waveform and result Specimen (Source) Anatomical Collection Method Collection Time Re ceived Time Location / / Volume Laterality 08/23/2018 1:36 AM CDT Sandra Moreno MD ECG ORDERABLES Performing Organization Address City/State/ZIP Code Phon e Number RADIOLOGY RESULTS documented in this encounter Visit Diagnoses Diagnosis Alcoholic intoxication without complicat ion (H) Chest pain, unspecified type Hypokalemia Hypopotassemia documented in this encounter Administered Medications Inactive Administered Medications - up to 3 most recent administrations Medication Order MAR Action Action Date Dose Rate Site 0.9% sodium chloride BOLUS New Bag 08/23/2018 1:55 AM CDT 1,000 mLs 1000 mL/hr Intravenous, 1,000 mL, ONCE, at 1,000 mL/hr, Administer over 1 Hours, On 08/23/18 at 0150, For 1 dose ketorolac (TORADOL) injection 15 mg Given 08/23/2018 1:54 AM CDT 15 mg 15 mg, Intravenous, ONCE, On 08/23/18 at 0150, For 1 dose, Can cause pain on injection. If ordered intravenously (IV) : administer through a running maintenance fluid over 1 minute followed by a flush. If patient complains of pain on injection, may dilute 15-30 mg in 5 mL and push over 1 to 2 minutes. potassium chloride (KLOR-CON) Packet 20 mEq Given 08/23/2018 2:45 AM CDT 20 mEq 20 mEq, Oral, ONCE, On 08/23/18 at 0230, For 1 dose, Dissolve packet contents in 4-8 ounces of cold water or juice. potassium chloride 10 mEq in 100 mL New Bag 08/23/2018 3:13 AM CDT 10 mEq intermittent infusion with 10 mg lidocai ne 10 mEq, Intravenous, Administer over 1 Hours, EVERY 1 HOUR PRN, potassium supplementation, Starting on 08/23/18 at 0229, For 1 dose sodium chloride 0.9% infusion at 125 mL/hr, Intravenous, CONTINUOUS, A dminister after the bolus., Starting on 08/23/18 at 0150, Until 08/23/18 at 0708 documented in this encounter Active and Recently Administered Medications Times are shown in CDT. Scheduled Medication Order 08/21/2018 08/22/2018 08/23/2018 0.9% sodium chloride BOLUS (COMPLETED) 0155 (New Bag - Provider: Willian Ga, RN)0313 (Stopped - Provider: Helena Ray, RN) Intravenous, 1,000 mL, ONCE, at 1,000 mL /hr, Administer over 1 Hours, 08/23/18 at 0150, For 1 dose ketorolac (TORADOL) injection 15 mg (COMPLETED) 0154 (Given - Provider: Willian Ga RN) 15 mg, Intravenous, ONCE, 08/23/18 at 0150, For 1 dose, Can cause pain on injection. If ordered intravenously (IV) : administer through a running maintenance fluid over 1 minute followed by a flush. I f patient complains of pain on injection , may dilute 15-30 mg in 5 mL and push over 1 to 2 minutes. potassium chloride (KLOR-CON) Packet 20 mEq (COMPLETED) 0245 (Given - Provider: Helena Ray, GENARO) 20 mEq, Oral, ONCE, 08/23/18 at 0230, For 1 dose, Dissolve packet contents in 4-8 ounces of cold water or juice. Continuous Medication Order 08/21/2018 08/22/2018 08/23/2018 sodium chloride 0.9% infusion 01 50 (Canceled Entry - Provider: Orders Generic Provider - Comment: Automatically canceled at discontinue of medication order) at 125 mL/hr, Intravenous, CONTINUOUS, A dminister after the bolus., Starting 08/23/18 at 0150, Until 08/23/18 at 0708 PRN Medication Order 08/21/2018 08/22/2018 08/23/2018 potassium chloride 10 mEq in 100 mL inte rmittent infusion with 10 mg lidocaine (COMPLETED) 0313 (New Bag - Prov ider: Helena Ray, RN)6393 (Stopped - Provider: Helena Ray RN) 10 mEq, Intravenous, Administer over 1 H ours, EVERY 1 HOUR PRN, Starting 08/23/18 at 0229, For 1 dose, potassium supplementation documented in this encounter Additional Health Concerns Assessment Noted Time PHQ-9 Depression Total Score: 10 07/08/2018 1:27 PM CD T documented as of this encounter Care Teams Division Operations Manager Relationship Specialty Start Date End Date Clinic, [facility] PCP - General 01/20/18 06/28/[address] [place] [address] Tatyana Haas APRN DAIRY PRODUCTS MAKER Assigned PCP 08/02/18 01/29/20 [facility] [address] [facility] [address] [place] [address] documented as of this encounter
--- OUTSIDE RECORDS SUMMARY | 2021-11-10 00:39 | XMS_ITS | Encounter Summary ---
:1980 Author Organization [place] Address [facility] [place] [address] Care Team Providers Name Role Phone Clinic, [facility] Primary Care Provide r Tatyana Haas PROFESSOR OF PHYSICS SUPERVISOR CORDUROY CUTTING Unavailable [phone] Reason for Visit Reason Comments Alcohol Intoxication Encounter Details Date Type Department Care Team Description 12/18/2018 Emergency [facility] Odette Frank MD [facility] [address] [place] [address] Alcoholic intoxication [facility] Emergency [facility], Eliud Carbajal MD [facility] [address] [place], [place] [id number] without complication Dept (H) [address] [place] [address] Social History Tobacco Use Types Packs/Day Years [...] at Date Recorded Female 01/14/2020 10:57 AM CONVERSION WORKER documented as of this encounter Last Filed Vital Signs Vital Sign Reading Time Taken Comments Blood Pressure 102/76 12/18/2018 7:15 PM CDT Pulse 99 12/18/2018 7:17 PM CDT Temperature 36.5 ??C (97.7 ??F) 12/18/2018 2:12 PM CDT Respiratory Rate 18 12/18/2018 2:12 PM CDT Oxygen Saturation 94% 12/18/2018 7:15 PM CDT Inhaled Oxygen Concentration - - Weight 83.6 kg (184 lb 4.9 oz) 12/18/2018 2:13 PM CDT Height - - Body Mass Index 29.75 07/04/2018 9:43 PM CDT documented in this encounter Discharge Instructions AttachmentsThe following attachments cannot be sent through Care Everywhere. Alcohol Intoxication (Cymro)documented in this encounter Medications at Time of [...] days film buprenorphine Place 1 Film under 7 Film 0 07/07/201805/2018 HCl-naloxone HCl the tongue daily (SUBOXONE) 8-2 MG per filmIndications: Alcohol abuse, continuous buPROPion (WELLBUTRIN Take 1 tablet (150 6 tablet 0 201801/20/2019 SR) 150 MG 12 hr tablet mg) by mouth 2 times daily for 3 days buPROPion (WELLBUTRIN Take 150 mg by mouth [...] 3 days levothyroxine Take 1 tablet (125 30 tablet [...] Take 1 tablet (75 6 tablet 0 02/201801/20/2019 MG tablet mg) by mouth 2 times [...] documented as of this encounter ED Notes Maricruz Murguia RN - 12/18/2018 2:10 PM CDT Patient comes in for evaluation of ETOH intoxication. Patient states she relapsed about a month ago.Has been drinking a little less than a liter of vodka a day, last drink was just before coming. IS here seeking help. Eliud Fernandez MD - 12/18/2018 1:51 PM CDT History Chief Complaint: Alcohol Intoxication HPI Stephani King is a 38 year old female with a history of alcohol abuse, alcohol withdrawal who presents to the emergency department for evaluation of alcohol intoxication. The patient reports she was in inpatient treatment for alcohol abuse from June-July of 2018, but she relapsed around 1.5 months ago. She indicates she drinks around 1 L vodka daily, and she is scared by her alcohol intake and wantsto stop. She remarks she usually goes to detox when she binges and wants to stop drinking. The patient notes she vomited 4 days ago after trying to decrease her alcohol intake at home; she believes shedecreased the amount too quickly. She denies any history of withdrawal seizure. She also denies any thoughts of harming herself or others. The patient has secondary complaint of diffuse rash on her skin. Allergies: NKDA Medications: Suboxone Wellbutrin Atarax Levothyroxine Nicorette Desyrel Effexor Past Medical History: Anxiety Chronic hepatitis C Depression Hypothyroidism Alcohol abuse MRSA infection Past Surgical History: Breast surgery, abscess drained C section Hysterectomy Orthopedic surgery Thoracic surgery Family History: Depression Psychotic disorder Thyroid disease Cerebrovascular disease [place] Asthma Social History: Presents alone. Current ever day smoker, 0.25 ppd, 2.5 pack years. Positive for alcohol use. Marital Status: [2] Review of Systems Gastrointestinal: Positive for nausea and vomiting. Skin: Positive for rash. Psychiatric/Behavioral: Positive for dysphoric mood. Negative for self-injury and suicidal ideas. The patient is nervous/anxious. Physical Exam Patient Vitals for the past 24 hrs: BP Temp Temp src Pulse Resp SpO2 Weight 12/18/181916 -- -- -- 99 -- -- -- 12/18/181914 102/76 -- -- -- -- 94 % -- 12/18/181909 98/51 -- -- 95 -- 94 % -- 12/18/18 1413 -- -- -- -- -- -- 83.6 kg (184 lb 4.9 oz) 12/18/18 1412 (!) 152/103 97.7 ??F (36.5 ??C) Temporal 98 18 97 % -- Physical Exam General: Patient is awake, alert and interactive when I enter the room. Pacing around the room, clinically intoxicated. Head: The scalp, face, and head appear normal Eyes: The pupils are equal, round, and reactive to light. Conjunctivae and sclerae are normal ENT: External acoustic canals are normal. The oropharynx is normal without erythema. Uvula is in themidline Neck: Normal range of motion. No anterior cervical lymphadenopathy noted CV: Regular rate. S1/S2. No murmurs. Resp: Lungs are clear without wheezes or rales. No respiratory distress. GI: Abdomen is soft, no rigidity, guarding, or rebound. No distension. No tenderness to palpation inany quadrant. MS: Normal tone. Joints grossly normal without effusions. No asymmetric leg swelling, calf or thigh tenderness. Skin: Scattered erythematous lesions that appear to be excoriated. No evidence of petechia or purpura. Normal capillary refill noted Neuro: Speech is normal and fluent. Face is symmetric. Moving all extremities. Psych: Normal affect. Appropriate interactions. Emergency Department Course Laboratory: CBC: WBC: 3.2 (L), HGB: 14.3, PLT: 97 (L) CMP: Glucose 124 (H), Urea Nitrogen 4 (L), Alkaline Phosphatase 151 (H), ALT 172 (H), AST 228 (H), o/w WNL (Creatinine: 0.59) 1448 Alcohol ethyl: 0.35 (HH) Interventions: 1519 Banana bag IV Emergency Department Course: Nursing notes and vitals reviewed. 1510 I performed an exam of the patient as documented above. IV inserted. Medicine administered as documented above. Blood drawn. This was sent to the lab for further testing, results above. 1603 I rechecked the patient and discussed the results of her workup thus far. Patient is amenable to going to detox. Findings and plan explained to the Patient. Patient discharged to detox with instructions regarding supportive care, medications, and reasons to return. The importance of close follow-up was reviewed. The patient was prescribed Suboxone, Wellbutrin, Levothyroxine, Effexor. I personally reviewed the laboratory results with the Patient and answered all related questions prior to discharge. Impression & Plan Medical Decision Making: Stephani King is a 38 year old female who presents for evaluation of altered mental status. She isintoxicated here in ED and this is the most likely etiology for their AMS. Nonetheless a broad differential diagnosis was considered for the altered state including drug ingestion, infection, intracerebral issues, metabolic derangements, psychiatric decompensation. Her head to toe exam is normal except for signs of alcohol intoxication. Blood work otherwise looks ok; no signs of alcoholic ketoacidosis, significant liver impairment or acute alcoholic hepatitis. She has no history of DT's or alcohol withdrawal seizures. There are no signs of co-ingestion including acetaminophen, drugs, medications, volatile alcohols. She has no signs of trauma related to alcohol use and no further workup is needed including head CT. Sent to Detox. Diagnosis: ICD-10-CM 1. Alcoholic intoxication without complication (H) F10.920 Disposition: discharged to detox. Discharge Medications: Discharge Medication List as of 12/18/2018 7:46 PM START taking these medications Details buprenorphine HCl-naloxone HCl (SUBOXONE) 4-[address] 1 Film under the tongue 3 times daily for 3 days, Disp-9 Film, R-0, Local Print !! buPROPion (WELLBUTRIN SR) 150 MG 12 hr tablet Take 1 tablet (150 mg) by mouth 2 times daily for 3days, Disp-6 tablet, R-0, Local Print !! levothyroxine (SYNTHROID/LEVOTHROID) 125 MCG tablet Take 1 tablet (125 mcg) by mouth daily for 3 days, Disp-3 tablet, R-0, Local Print venlafaxine (EFFEXOR) 75 MG tablet Take 1 tablet (75 mg) by mouth 2 times daily for 3 days, Disp-6 tablet, R-0, Local Print !! - Potential duplicate medications found. Please discuss with provider. I, Otto Peterson, am serving as a scribe on 12/18/2018 at 2:57 PM to personally document services performed by Eliud Fernandez* based on my observations and the provider's statements to me. Otto Peterson 12/18/2018 [facility] EMERGENCY DEPARTMENT Eliud Fernandez MD 12/21/18 1545 ERSION WORKER documented in this encounter Plan of Treatment Upcoming Encounters Date Type Specialty Care Team Description 11/15/2021 Office Visit Wound Care Ho[facility] Luis Burnett, DPM [address] [place] [address] (Wo rk) documented as of this encounter Procedures Procedure Name Priority Date/Time Associated Comments Diagnosis CBC WITH PLATELETS & STAT 12/18/2018 2:48 PM R esults for this DIFFERENTIAL CDT procedure are i n the results section. COMPREHENSIVE STAT 12/18/2018 2:48 PM Results for this METABOLIC PANEL CDT procedure ar e in the results section. ETHYL ALCOHOL LEVEL STAT 12/18/2018 2:48 PM Re sults for this CDT procedure are i n the results section. documented in this encounter Results (ABNORMAL) Alcohol ethyl (12/18/2018 2:48 PM CDT) P athologist Signature Ethanol g/dL 0.35 (HH) <0.01 g/dL 12/18/2018 [facility] 3:59 PM CDT [facility] Comment: Critical Value called to and read back Barnden BOONE (ERA) ON 12.18.2018 AT 1556, SP Specimen Anatomical Collection Method Collection Time Receive d Time (Source) Location / / Volume Laterality Blood specimen 12/18/2018 2:48 PM 019 3:24 (specimen) CDT PM CDT Christopher Frank MD LAB - BLOOD ORDERABLES Performing Organization Address City/State/ZIP Code Phon e Number M [facility] [address] [address] [facility] [address] [phone] (ABNORMAL) Comprehensive metabolic panel (12/18/2018 2:48 PM [facility]) athologist Signature Sodium 141 133 - 144 12/18/2018 [facility] mmol/L 3:44 PM [facility] Potassium 3.5 3.4 - 5.3 12/18/2018 [facility] mmol/L 3:44 PM [facility] Chloride 105 94 - 109 12/18/2018 [facility] mmol/L 3:44 PM [facility] Carbon Dioxide 28 20 - 32 12/18/2018 [facility] mmol/L 3:51 PM [facility] Anion Gap 8 3 - 14 12/18/2018 [facility] mmol/L 3:51 PM [facility] Glucose 124 (H) 70 - 99 12/18/2018 [facility] mg/dL 3:51 PM [facility] Urea Nitrogen 4 (L) 7 - 30 12/18/2018 [facility] mg/dL 3:51 PM [facility] Creatinine 0.59 0.52 - 12/18/2018 [facility] 1.04 mg/dL 3:51 PM [facility] GFR Estimate >90 >60 12/18/2018 [facility] mL/min/{1. 3:51 PM [facility] 73_m2} [facility] Comment: Non GFR Calc Starting 02/03/2018, serum creatinine ba sed estimated GFR (eGFR) will be calculated using the Chronic Kidney Dise [facility] Epidemiology Collaboration (CKD-EPI) equation. GFR Estimate If >90 >60 mL/min/{1.73_m2} 12/18/2018 3: 51 PM [facility] Comment: GFR Calc Starting 02/03/2018, serum creatinine ba sed estimated GFR (eGFR) will be calculated using the Chronic Kidney Dise [facility] Epidemiology Collaboration (CKD-EPI) equation. Calcium 8.5 8.5 - 10.1 12/18/2018 3:51 PM [facility] [place] mg/dL [facility] Bilirubin Total 0.7 0.2 - 1.3 mg/dL 12/18/2018 3:53 PM [facility] Albumin 3.9 3.4 - 5.0 g/dL 12/18/2018 3:53 PM [facility] Protein Total 8.3 6.8 - 8.8 g/dL 12/18/2018 3:[address] [facility] Alkaline Phosphatase 151 (H) 40 - 150 U/L 12/18/2018 3:53 PM [facility] ALT 172 (H) 0 - 50 U/L 12/18/2018 3:53 PM [facility] AST 228 (H) 0 - 45 U/L 12/18/2018 3:53 PM [facility] Specimen Anatomical Collection Method Collection Time Receive d Time (Source) Location / / Volume Laterality Blood specimen 12/18/2018 2:48 PM 019 3:24 (specimen) CDT PM CDT Christopher Frank MD LAB - BLOOD ORDERABLES Performing Organization Address City/State/ZIP Code Phon e Number [place] [address] [place] [address] HOSPITAL [facility] [address] [phone] (ABNORMAL) CBC with platelets differential (12/18/2018 2:48 PM CDT) [facility] Method Time Signature WBC 3.2 (L) 4.0 - 12/18/2018 [facility] 11.0 3:28 PM [facility] 10e9/L [facility] RBC Count 4.32 3.8 - 5.2 12/18/2018 [facility] 10e12/L 3:28 PM [facility] Hemoglobin 14.3 11.7 - 12/18/2018 [facility] 15.7 g/dL 3:28 PM [facility] Hematocrit 41.9 35.0 - 12/18/2018 [facility] 47.0 % 3:28 PM [facility] MCV 97 78 - 100 12/18/2018 [facility] fl 3:28 PM [facility] MCH 33.1 (H) 26.5 - 12/18/2018 [facility] 33.0 pg 3:28 PM [facility] MCHC 34.1 31.5 - 12/18/2018 [facility] 36.5 g/dL 3:28 PM [facility] RDW 13.2 10.0 - 12/18/2018 [facility] 15.0 % 3:28 PM [facility] Platelet Count 97 (L) 150 - 450 12/18/2018 [facility] 10e9/L 3:28 PM [facility] Diff Method Automated 12/18/2018 [facility] Method 3:28 PM [facility] % Neutrophils 36.5 % 12/18/2018 [facility] 3:28 PM [facility] % Lymphocytes 47.0 % 12/18/2018 [facility] 3:28 PM [facility] % Monocytes 10.5 % 12/18/2018 [facility] 3:28 PM [facility] % Eosinophils 3.8 % 12/18/2018 [facility] 3:28 PM [facility] % Basophils 1.6 % 12/18/2018 [facility] 3:28 PM [facility] % Immature 0.6 % 12/18/2018 [facility] Granulocytes 3:28 PM [facility] Nucleated RBCs 0 0 /100 12/18/2018 [facility] 3:28 PM [facility] Absolute 1.2 (L) 1.6 - 8.3 12/18/2018 [facility] Neutrophil 10e9/L 3:28 PM [facility] Absolute 1.5 0.8 - 5.3 12/18/2018 [facility] Lymphocytes 10e9/L 3:28 PM [facility] Absolute 0.3 0.0 - 1.3 12/18/2018 [facility] Monocytes 10e9/L 3:28 PM [facility] Absolute 0.1 0.0 - 0.7 12/18/2018 [facility] Eosinophils 10e9/L 3:28 PM [facility] Absolute 0.1 0.0 - 0.2 12/18/2018 [facility] Basophils 10e9/L 3:28 PM [facility] Abs Immature 0.0 0 - 0.4 12/18/2018 [facility] Granulocytes 10e9/L 3:28 PM [facility] Absolute 0.0 12/18/2018 [facility] Nucleated RBC 3:28 PM [facility] Specimen Anatomical Collection Method Collection Time Receive d Time (Source) Location / / Volume Laterality Blood specimen 12/18/2018 2:48 PM 2 019 3:24 (specimen) CDT [facility] Christopher Frank MD LAB - BLOOD ORDERABLES Performing Organization Address City/State/ZIP Code Phon e Number [facility] [address] [place], [place] [address] [facility] [address] [place], [place] [address] [address] [phone] documented in this encounter Visit Diagnoses Diagnosis Alcoholic intoxication without complicat ion (H) documented in this encounter Administered Medications Inactive Administered Medications - up to 3 most recent administrations Medication Order MAR Action Action Date Dose Rate Site sodium chloride 0.9 % 1,000 mL New Bag 12/18/2018 3:19 PM CDT 500 mL/hr with INFUVITE ADULT 10 mL, thiamine 100 mg, folic acid 1 mg infusion 1,000 mL, at 500 mL/hr, Intravenous, ONCE, 1 dose, On Fri12/18/18 at 1438 documented in this encounter Active and Recently Administered Medications Times are shown in CDT. Scheduled Medication Order 12/16/2018 12/17/2018 12/18/2018 sodium chloride 0.9 % 1,000 mL with INFU JO ANN ADULT 10 mL, thiamine 100 mg, folic acid 1 mg infusion (COMPLETED) 1519 (Ne w Bag - Provider: Brigitte Palacios, GENARO)1908 (Stopped - Provider: Reno Flannery RN) 1,000 mL, at 500 mL/hr, Intravenous, ONCE, 1 dose, Fri12/18/18 a t 1438 documented in this encounter Additional Health Concerns Assessment Noted Time PHQ-9 Depression Total Score: 10 07/08/2018 1:27 PM CD T documented as of this encounter Care Teams Plant Scientist Relationship Specialty Start Date End Date Clinic, [facility] Medical PCP - General 01/20/18 06/28/[address] [place] [address] Tatyana Haas APRN SUPERVISOR CORDUROY CUTTING Assigned PCP 08/02/18 01/29/20 [facility] [address] [facility] [address] [place] [address] documented as of this encounter
--- OUTSIDE RECORDS SUMMARY | 2021-11-10 00:39 | XMS_ITS | Encounter Summary ---
:1980 Author Organization [place] Address [address] [place] [address] Care Team Providers Name Role Phone Clinic, [facility] Primary Care Provide r Tatyana Haas SAFETY AND SECURITY MANAGER MIXING MACHINE TENDER Unavailable [phone] Encounter Details Date Type Department Care Team Description 12/31/2019 Travel Social History Tobacco Use Types Packs/Day [...] at Date Recorded Female 01/14/2020 10:57 AM COMPLAINT INVESTIGATOR COVID-19 Exposure Response Date Recorded In the last month, have you been in contact with No / Unsure 12/31/2019 2:41 PM COMPLAINT INVESTIGATOR someone who was confirmed or suspected to have Coronavirus / COVID-19? documented as of this encounter Plan of Treatment Upcoming Encounters Date Type Specialty Care Team Description 11/15/2021 Office Visit Wound Care Luis Camara DPM [address] [place] [address] (Wo rk) documented as of this encounter Visit Diagnoses Not on filedocumented in this encounter Additional Health Concerns Assessment Noted Time PHQ-9 Depression Total Score: 6 12/27/2019 9:38 AM COMPLAINT INVESTIGATOR documented as of this encounter Care Teams Rebar Bender Relationship Specialty Start Date End Date Clinic, [facility] PCP - General 01/20/18 06/28/[address] [place] [address] Tatyana Haas APRN MIXING MACHINE TENDER Assigned PCP 08/02/18 01/29/20 [facility] [address] [facility] [address] [place] [address] documented as of this encounter
--- OUTSIDE RECORDS SUMMARY | 2021-11-10 00:39 | XMS_ITS | Encounter Summary ---
:1980 Author Organization [place] Address [address] [place] [address] Care Team Providers Name Role Phone Clinic, [facility] Primary Care Provide r Tatyana Haas RN NEW GRAD HIGH SPEED WARPER TENDER Unavailable [phone] Encounter Details Date Type Department Care Team Description 06/20/2019 Travel Social History Tobacco Use Types Packs/Day [...] at Date Recorded Female 01/14/2020 10:57 AM VICTIMS ADVOCATE CLERK/SPECIALIST COVID-19 Exposure Response Date Recorded In the last month, have you been in contact with No / Unsure 06/20/2019 10:01 AM CDT someone who was confirmed or suspected to have Coronavirus / COVID-19? documented as of this encounter Plan of Treatment Upcoming Encounters Date Type Specialty Care Team Description 11/15/2021 Office Visit Wound Care Luis Camara DPM [address] [place], [place] [address] (Wo rk) documented as of this encounter Visit Diagnoses Not on filedocumented in this encounter Additional Health Concerns Assessment Noted Time PHQ-9 Depression Total Score: 10 07/08/2018 1:27 PM CD T documented as of this encounter Care Teams Position Description Manager Relationship Specialty Start Date End Date Clinic, [facility] PCP - General 01/20/18 06/28/[address] [place] [address] Tatyana Haas, FARZANA HIGH SPEED WARPER TENDER Assigned PCP 08/02/18 01/29/20 [place] [facility] [address] [facility] [address] [place] [address] documented as of this encounter
--- OUTSIDE RECORDS SUMMARY | 2021-11-10 00:39 | XMS_ITS | Encounter Summary ---
:1980 Author Organization [place] Address [address] [place] [address] Care Team Providers Name Role Phone Clinic, [facility] Primary Care Provide r Tatyana Haas DISPENSING AND MEASURING OPTICIAN LEGAL ARBITRATOR Unavailable [phone] Encounter Details Date Type Department Care Team Description 12/18/2018 Travel Social History Tobacco Use Types Packs/Day [...] at Date Recorded Female 01/14/2020 10:57 AM CARTRIDGE MAKER documented as of this encounter Plan of Treatment Upcoming Encounters Date Type Specialty Care Team Description 11/15/2021 Office Visit Wound Care Luis Camara DPM [address] [place] [address] (Wo rk) documented as of this encounter Visit Diagnoses Not on filedocumented in this encounter Additional Health Concerns Assessment Noted Time PHQ-9 Depression Total Score: 10 07/08/2018 1:27 PM CD T documented as of this encounter Care Teams Retail Account Manager Relationship Specialty Start Date End Date Clinic, [facility] PCP - General 01/20/18 06/28/[address] [place] [address] [id number] Tatyana Haas APRN LEGAL ARBITRATOR Assigned PCP 08/02/18 01/29/20 [facility] [address] [facility] [address] [place] [address] documented as of this encounter
--- OUTSIDE RECORDS SUMMARY | 2021-11-10 00:40 | XMS_ITS | Encounter Summary ---
:1980 Author Organization [place] Address [address] [place] [id number] Care Team Providers Name Role Phone Clinic, [facility] Primary Care Provide r Encounter Details Date Type Department Care Team Description 07/20/2018 Travel Social History Tobacco Use Types Packs/Day [...] at Date Recorded Female 01/14/2020 10:57 AM UPPER LEATHER SORTER documented as of this encounter Plan of Treatment Upcoming Encounters Date Type Specialty Care Team Description 11/15/2021 Office Visit Wound Care Luis Camara DPM [address] [place], [place] [address] (Wo rk) documented as of this encounter Visit Diagnoses Not on filedocumented in this encounter Additional Health Concerns Assessment Noted Time PHQ-9 Depression Total Score: 10 07/08/2018 1:27 PM CD T documented as of this encounter Care Teams Immigration Patrol Inspector Relationship Specialty Start Date End Date Clinic, [facility] PCP - General 01/20/18 06/28/21 [facility] [place] [address] documented as of this encounter
--- OUTSIDE RECORDS SUMMARY | 2021-11-10 00:40 | XMS_ITS | Encounter Summary ---
:1980 Author Organization [place] Address [address] [place] [address]. [place] [address] Care Team Providers Name Role Phone [facility] Primary Care Provide r Encounter Details Date Type Department Care Team Description 01/31/2018 Travel Social History Tobacco Use Types Packs/Day Years Used Date Current Every Day Smoker Cigarettes 0.1 10 Smokeless Tobacco: Never Used Comments: 5 cigarettes a day Alcohol Use Standard Drinks/Week Comments Yes 0 (1 standard drink = 0.6 oz pure alcoho l) binge drinks Alcohol Habits Answer Date Recorded How often do you have a drink containing alcohol? Not asked 05/31/2020 How many drinks containing alcohol do you have on a Not aske d 05/31/2020 typical day when you are drinking? How often do you have six or more drinks on one occasion? No t asked 05/31/2020 Comment: binge drinks 01/20/2018 Sex Assigned at Date Recorded Female 01/14/2020 10:57 AM SUPERVISOR CIGAR PROCESSING documented as of this encounter Plan of Treatment Upcoming Encounters Date Type Specialty Care Team Description 11/15/2021 Office Visit Wound Care Luis Camara DPM [address] [place], [place] [id number] (Wo rk) documented as of this encounter Visit Diagnoses Not on filedocumented in this encounter Care Teams Reed Repairer Relationship Specialty Start Date End Date [facility] PCP - General 01/20/18 06/28/[address] [place] [id number] documented as of this encounter
--- OUTSIDE RECORDS SUMMARY | 2021-11-10 00:40 | XMS_ITS | Encounter Summary ---
:1980 Author Organization [place] Address [address] [place] [address] Care Team Providers Name Role Phone Clinic, [facility] Primary Care Provide r Encounter Details Date Type Department Care Team Description 07/19/2018 Travel Social History Tobacco Use Types Packs/Day [...] at Date Recorded Female 01/14/2020 10:57 AM COPY MESSENGER documented as of this encounter Plan of Treatment Upcoming Encounters Date Type Specialty Care Team Description 11/15/2021 Office Visit Wound Care Luis Camara DPM [address] [place], [place] [phone] (Wo rk) documented as of this encounter Visit Diagnoses Not on filedocumented in this encounter Additional Health Concerns Assessment Noted Time PHQ-9 Depression Total Score: 10 07/08/2018 1:27 PM CD T documented as of this encounter Care Teams Television Production Assistant Relationship Specialty Start Date End Date Clinic, [facility] PCP - General 01/20/18 06/28/21 [facility] [place] [address] documented as of this encounter
--- OUTSIDE RECORDS SUMMARY | 2021-11-10 00:40 | XMS_ITS | Encounter Summary ---
:1980 Author Organization [facility] Address [address] [place] [address]. 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 documented as of this encounter Last Filed Vital Signs Vital Sign Reading Time Taken Comments Blood Pressure 125/78 05/04/2018 10:30 PM CDT Pulse 80 05/04/2018 10:30 PM CDT Temperature 36.7 ??C (98 ??F) 05/04/2018 7:30 PM CDT Respiratory Rate 15 05/04/2018 10:30 PM CDT Oxygen Saturation 95% 05/04/2018 10:30 PM CDT Inhaled Oxygen Concentration - - Weight - - Height - - Body Mass Index - - documented in this encounter Medications at Time of Discharge Medication Sig Dispensed Refills Start Date End Date ACETAMINOPHEN PO 0 07/05/19 19 buprenorphine (SUBUTEX) 2 Place 1 tablet (2 6 tablet 0 07/07/2018 MG SUBL sublingual tablet mg) under the tongue 2 times daily for 3 days buprenorphine (SUBUTEX) 2 Place 1 tablet (2 6 tablet 0 07/07/2018 MG SUBL sublingual mg) under the tabletIndications: tongue 2 times Uncomplicated opioid daily for 3 days dependence (H) buPROPion (WELLBUTRIN SR) Take 1 tablet (150 3 tablet 0 07/04/2018 150 MG 12 hr mg) by mouth daily tabletIndications: S/P for 3 days emergency hysterectomy buPROPion (WELLBUTRIN XL) Take 1 tablet (150 3 tablet 0 07/07/2018 150 MG 24 hr tablet mg) by mouth every morning chlordiazePOXIDE Take 1 capsule (25 10 capsule 0 02/24/2018 07/07/2018 (LIBRIUM) 25 MG capsule mg) by mouth 3 times daily as needed for withdrawal DiphenhydrAMINE HCl Take by mouth as 0 07/04/2018 (BENADRYL ALLERGY PO) needed hydrOXYzine (ATARAX) 25 Take 2-4 tablets 40 tablet 1 201707/07/2018 MG tablet (50-100 mg) by mouth every 6 hours as needed for anxiety ibuprofen (ADVIL/MOTRIN) Take 1 tablet (600 12 tablet 1 07/07/2018 600 MG tabletIndications: mg) by mouth every S/P emergency 6 hours as needed hysterectomy for moderate pain levothyroxine Take 1 tablet (125 3 tablet 0 05/04/2018 (SYNTHROID/LEVOTHROID) mcg) by mouth daily 125 MCG tablet levothyroxine Take 1 tablet (125 3 tablet 0 01/31/2018 (SYNTHROID/LEVOTHROID) mcg) by mouth daily 125 MCG tablet for 3 days ondansetron (ZOFRAN ODT) Take 1 tablet (4 10 tablet 0 02/2407/07/2018 4 MG ODT tab mg) by mouth every 6 hours as needed for nausea polyethylene glycol Take 17 g (1 51 g 0 01/31/2018 (MIRALAX) capful) by mouth powderIndications: Slow daily for 3 days transit constipation prochlorperazine Take 1 tablet (10 12 tablet 0 01/31/2018 0 07/07/2018 (COMPAZINE) 10 MG tablet mg) by mouth every 6 hours as needed for nausea or vomiting venlafaxine (EFFEXOR-XR) Take 2 capsules 6 capsule 0 201707/04/2018 150 MG 24 hr (300 mg) by mouth capsuleIndications: Major daily for 3 days depressive disorder, recurrent episode, moderate (H) documented as of this encounter ED Notes Tanesha Frost RN - 05/04/2018 7:32 PM CDT Patient sipping on powerade strong smell of alcohol. When asked if alcohol, patient became upset andstarted become defensive. Stating ignore what I said about me mixing the alcohol with powerade. I am not going to dump it out until I get to the room This field underwriter kindly directed patient and was told alcohol was not allowed on premises. And asked kindly to empty container. Patient appears to be increasingly upset. Patient was told I she will be seen by provider and will be pushed at head of line . Patient agrees to empty alcohol Tanesha Frost RN - 05/04/2018 7:28 PM CDT Patient presents to ED due alcohol intoxication, withdrawal. Reports have multiple c/o. States, 1. I have been having numbness to my face and lips on and off for the past few months 2. I have relapsed for the 4th time 3. : I noticed to have L side pain that started this morning. It hurts to laugh 4. I have been sipping on alcohol throughout the day. Other boss I get anxious and can't breath Denies seizures due to withdrawal. Typically drinks half a liter of vodka a day. Christopher Carrion MD - 05/04/2018 7:05 PM CDT History Chief Complaint: Alcohol Problem HPI: The history is provided by the patient. Stephani King is a 37 year old female with a history of hypothyroidism, alcohol abuse, and substance dependence who presents for evaluation of alcohol problem. The patient is brought in by her motherin law after drinking daily for the past many days. The patient states that she has been drinking vodka. She denies ingesting any other substances including street drugs, rubbing alcohol, mouthwash, or volatile alcohols. The patient states that when she stops drinking she has difficulty breathing and has paresthesias on her face (bilaterally). She reports 1 episode of emesis prior to arrival. Denies thoughts of self harm or suicide. Denies any other concerns at this time. She is looking for help with her drinking. Allergies: No known drug allergies Medications: Wellbutrin Levothyroxine Effexor Past Medical History: Anxiety Chronic hepatitis C Depressive disorder Hypothyroid Substance dependence Past Surgical History: section Hysterectomy Thoracic surgery Family History: Depression Psychotic disorder Thyroid disease Social History: The patient is accompanied to the ED by mother PCP: [facility] Marital Status: Smoking status: current every day smoker Alcohol use: yes, tressa drinks Review of Systems Constitutional: Alcohol intoxication Gastrointestinal: Positive for vomiting. Negative for abdominal pain. All other systems reviewed and are negative. Physical Exam Patient Vitals for the past 24 hrs: BP Temp Pulse Heart Rate Resp SpO2 05/04/18 2230 125/78 -- 80 83 15 95 % 05/04/18 2215 136/89 -- 79 79 12 99 % 05/04/18 2145 125/89 -- 81 80 12 95 % 05/04/18 2130 (!) 149/96 -- 74 79 15 100 % 05/04/18 2045 136/88 -- -- 98 18 99 % 05/04/18 1930 (!) 156/101 98 ??F (36.7 ??C) -- 103 18 100 % Physical Exam General: Well-nourished Speaking in full sentences Eyes: Conjunctiva without injection or scleral icterus ENT: Moist mucous membranes Poor dentition Nares patent Pinnae normal Neck: Full ROM No stiffness appreciated Resp: Lungs CTAB No crackles, wheezing or audible rubs Good air movement CV: Tachycardic rate, regular rhythm S1 and S2 present No murmur, gallop or rub GI: BS present Abdomen soft without distention Non-tender to light and deep palpatio No guarding or rebound tenderness Skin: Warm, dry, well perfused No rashes or open wounds on exposed skin MSK: Moves all extremities No focal deformities or swelling Neuro: Alert Answers questions appropriately Moves all extremities equally Gait stable Psych: Normal affect, normal mood Emergency Department Course Laboratory: Alcohol ethyl: 0.21 CBC: PLT 144, o/w WNL (WBC 4.2, HGB 14.8) CMP: Potassium 3.2, glucose 102, BUN 5, Alk Phos 157, ALT 173, AST 250, o/w WNL (Creatinine 0.68) Magnesium: 2.0 ISTAT HCG Quantitative: <5.0 Interventions: 2021: vitamin B12 100 mg, PO 2021: folic acid 1 mg, PO 2021: THERA-VIT-M 1 tablet, PO 2033: NS 1L IV Bolus 2044: Valium 5 mg, IV 2157: Klor-Con 20 mEq, PO Emergency Department Course: Past medical records, nursing notes, and vitals reviewed. 2005: I performed an exam of the patient and obtained history, as documented above. IV started and blood drawn for laboratory testing. Results are as above. 2152: I rechecked the patient. Explained findings to the patient. 2212: I rechecked and updated the patient. The patient denies any thoughts of self harm, suicidal ideation, or thoughts of hurting others. The patient is willing to go to Detox. I rechecked the patient. Findings and plan explained to the Patient. Patient discharged to detox with instructions regarding supportive care, medications, and reasons to return. The importance of closefollow-up was reviewed. Impression & Plan Medical Decision Making: Stephani King is a 37-year-old female with a history of alcohol abuse, presenting to the emergency department accompanied by [id number] for evaluation of an alcohol problem. VS on presentation reveal elevated HR, and BP, both of which improved during patient's emergency department course. Patient pr esents with a multitude of complaints, largely stemming from regular alcohol consumption, with difficulties managing symptoms both while taking alcohol as well as abstaining from alcohol. She reports regular consumption of vodka as noted above. Present blood alcohol level returned elevated at 0.21. Labs also demonstrate elevated LFTs in a pattern suspicious for alcoholic hepatitis. Potassium mildly low at 3.2 for which oral supplementation provided. Patient was provided IV fluids and 1 dose of IV Valium with improvement in symptoms. She has not displayed altered mental status, encephalopathy, nor seizure activity here in the ED. Abdominal exam soft without localizing tenderness nor peritoneal findings. test is negative. I feel this is unlikely to represent acute surgical intra-abdominalprocess warranting further advanced imaging. Results of the above studies were discussed with the patient. We discussed options for further management and offered detox which patient is agreeable towards. Patient will be transferred to [facility] for further treatment of her symptoms. 3-day supply of her home medications were provided. She will be transferred via EMS for further treatment and care. Critical Care time: none Diagnosis: ICD-10-CM 1. Alcoholic intoxication without complication (H) F10.920 2. Elevated LFTs R94.5 Disposition: discharged to detox Discharge Medications: Medication List Started * buprenorphine 2 MG Subl sublingual tablet Commonly known as: SUBUTEX 2 mg, Sublingual, 2 TIMES DAILY Leydi Powers am serving as a scribe at 8:06 PM on 05/04/2018 to document services personally performed by Christopher Carrion MD based on my observations and the provider's statements to me. Leydi Dye 05/04/2018 [facility] EMERGENCY DEPARTMENT Christopher Carrion MD 05/05/18 0019 documented in this encounter Plan of Treatment Upcoming Encounters Date Type Specialty Care Team Description 11/15/2021 Office Visit Wound Care Luis Camara, [place] [address] [place] [address] (Wo rk) documented as of this encounter Procedures Procedure Name Priority Date/Time Associated Comments Diagnosis CBC WITH PLATELETS & STAT 05/04/2018 8:30 PM R esults for this DIFFERENTIAL CDT procedure are i n the results section. MAGNESIUM STAT 05/04/2018 8:30 PM Results f or this CDT procedure are i n the results section. COMPREHENSIVE STAT 05/04/2018 8:30 PM Results for this METABOLIC PANEL CDT procedure ar e in the results section. ETHYL ALCOHOL LEVEL STAT 05/04/2018 8:30 PM Re sults for this CDT procedure are i n the results section. ISTAT HCG QUANTITATIVE Routine 05/04/2018 8:28 PM Results for this POCT CDT procedure are in the results section. documented in this encounter Results Magnesium (05/04/2018 8:30 PM CDT) athologist Signature Magnesium 2.0 1.6 - 2.3 05/04/2018 [facility] mg/dL 9:02 PM CDT HOSPITAL Specimen Anatomical Collection Method Collection Time Receive d Time (Source) Location / / Volume Laterality Blood specimen 05/04/2018 8:30 PM 019 8:42 (specimen) CDT PM CDT Christopher Carrion MD LAB - BLOOD ORDERABLES Performing Organization Address City/State/ZIP Code Phon e Number M [place] [address] [address] [place] [address] HOSP[facility] [address] [phone] (ABNORMAL) Comprehensive metabolic panel (05/04/2018 8:30 PM CDT) athologist Signature Sodium 139 133 - 144 05/04/2018 [place] mmol/L 8:54 PM [facility] Potassium 3.2 (L) 3.4 - 5.3 05/04/2018 [place] mmol/L 8:54 PM [facility] Chloride 103 94 - 109 05/04/2018 [place] mmol/L 8:54 PM [facility] Carbon Dioxide 28 20 - 32 05/04/2018 [place] mmol/L 9:01 PM [facility] Anion Gap 8 3 - 14 05/04/2018 [place] mmol/L 9:01 PM [facility] Glucose 102 (H) 70 - 99 05/04/2018 [place] mg/dL 9:01 PM [facility] Urea Nitrogen 5 (L) 7 - 30 05/04/2018 [place] mg/dL 9:01 PM [facility] Creatinine 0.68 0.52 - 05/04/2018 [facility] 1.04 mg/dL 9:01 PM [facility] GFR Estimate >90 >60 05/04/2018 [place] mL/min/{1. 9:01 PM [facility] 73_m2} HOSPITAL Comment: Non GFR Calc Starting 02/03/2018, serum creatinine ba sed estimated GFR (eGFR) will be calculated using the Chronic Kidney Dise [facility] Epidemiology Collaboration (CKD-EPI) equation. GFR Estimate If >90 >60 mL/min/{1.73_m2} 05/04/2018 9: 01 PM [facility] Comment: GFR Calc Starting 02/03/2018, serum creatinine ba sed estimated GFR (eGFR) will be calculated using the Chronic Kidney Dise [facility] Epidemiology Collaboration (CKD-EPI) equation. Calcium 8.5 8.5 - 10.1 05/04/2018 9:01 PM [facility] mg/dL [facility] Bilirubin Total 1.2 0.2 - 1.3 mg/dL 05/04/2018 9:02 PM [facility] Albumin 4.1 3.4 - 5.0 g/dL 05/04/2018 9:02 PM [facility] Protein Total 8.6 6.8 - 8.8 g/dL 05/04/2018 9:02 PM [facility] Alkaline Phosphatase 157 (H) 40 - 150 U/L 05/04/2018 9:02 PM [facility] ALT 173 (H) 0 - 50 U/L 05/04/2018 9:02 PM [facility] AST 250 (H) 0 - 45 U/L 05/04/2018 9:02 PM [facility] Specimen Anatomical Collection Method Collection Time Receive d Time (Source) Location / / Volume Laterality Blood specimen 05/04/2018 8:30 PM 019 8:42 (specimen) CDT PM CDT Christopher Carrion MD LAB - BLOOD ORDERABLES Performing Organization Address City/State/ZIP Code Phon e Number M [facility] [address] [place], [place] [address] [facility] [address] [place], [place] [address], [facility] [phone] (ABNORMAL) CBC with platelets differential (05/04/2018 8:30 PM CDT) [facility] Method Time Signature WBC 4.2 4.0 - 05/04/2018 [facility] 11.0 8:45 PM [facility] 10e9/L [facility] RBC Count 4.55 3.8 - 5.2 05/04/2018 [facility] 10e12/L 8:45 PM [facility] Hemoglobin 14.8 11.7 - 05/04/2018 [facility] 15.7 g/dL 8:45 PM [facility] Hematocrit 43.9 35.0 - 05/04/2018 [facility] 47.0 % 8:45 PM [facility] MCV 97 78 - 100 05/04/2018 [facility] fl 8:45 PM [facility] MCH 32.5 26.5 - 05/04/2018 [facility] 33.0 pg 8:45 PM [facility] MCHC 33.7 31.5 - 05/04/2018 [facility] 36.5 g/dL 8:45 PM [facility] RDW 13.3 10.0 - 05/04/2018 [facility] 15.0 % 8:45 PM [facility] Platelet Count 144 (L) 150 - 450 05/04/2018 [facility] 10e9/L 8:45 PM [facility] Diff Method Automated 05/04/2018 [facility] Method 8:45 PM [facility] % Neutrophils 49.5 % 05/04/2018 [facility] 8:45 PM [facility] % Lymphocytes 39.2 % 05/04/2018 [facility] 8:45 PM [facility] % Monocytes 8.4 % 05/04/2018 [facility] 8:45 PM [facility] % Eosinophils 2.2 % 05/04/2018 [facility] 8:45 PM [facility] % Basophils 0.7 % 05/04/2018 [facility] 8:45 PM [facility] % Immature 0.0 % 05/04/2018 [facility] Granulocytes 8:45 PM [facility] Nucleated RBCs 0 0 /100 05/04/2018 [facility] 8:45 PM [facility] Absolute 2.1 1.6 - 8.3 05/04/2018 [place] Neutrophil 10e9/L 8:45 PM [facility] Absolute 1.6 0.8 - 5.3 05/04/2018 [place] Lymphocytes 10e9/L 8:45 PM [facility] Absolute 0.4 0.0 - 1.3 05/04/2018 [place] Monocytes 10e9/L 8:45 PM [facility] Absolute 0.1 0.0 - 0.7 05/04/2018 [place] Eosinophils 10e9/L 8:45 PM [facility] Absolute 0.0 0.0 - 0.2 05/04/2018 [place] Basophils 10e9/L 8:45 PM [facility] Abs Immature 0.0 0 - 0.4 05/04/2018 [place] Granulocytes 10e9/L 8:45 PM [facility] Absolute 0.0 05/04/2018 [place] Nucleated RBC 8:45 PM [facility] Specimen Anatomical Collection Method Collection Time Receive d Time (Source) Location / / Volume Laterality Blood specimen 05/04/2018 8:30 PM 019 8:42 (specimen) CDT PM CDT Christopher Carrion MD LAB - BLOOD ORDERABLES Performing Organization Address City/State/ZIP Code Phon e Number M [facility] [address] [place] [address] [facility] [address] [phone] (ABNORMAL) Alcohol ethyl (05/04/2018 8:30 PM CDT) P athologist Signature Ethanol g/dL 0.21 (H) <0.01 g/dL 05/04/2018 [place] 9:02 PM [facility] Specimen Anatomical Collection Method Collection Time Receive d Time (Source) Location / / Volume Laterality Blood specimen 05/04/2018 8:30 PM 019 8:42 (specimen) CDT PM CDT Christopher Carrion MD LAB - BLOOD ORDERABLES Performing Organization Address City/State/ZIP Code Phon e Number M [facility] [address] [place], [place] [address] [facility] [address] [place], [place] [address] [facility] [phone] ISTAT HCG Quantitative POCT (05/04/2018 8:28 PM CDT) P athologist Signature HCG Quantitative <5.0 <5.0 IU/L 05/04/2018 [facility] Serum 8:40 PM CDT TEST, HANDHELD METER Specimen Anatomical Collection Method Collection Time Receive d Time (Source) Location / / Volume Laterality 05/04/2018 8:28 PM 9 8:40 CDT PM CDT Christopher Carrion MD LAB - BEAKER POCT Performing Organization Address City/State/ZIP Code Phon e Number [facility] POINT OF CARE TEST, HANDHELD METER POINT OF CARE TEST, HANDHELD METER documented in this encounter Visit Diagnoses Diagnosis Alcoholic intoxication without complicat ion (H) Elevated LFTs Other abnormal blood chemistry documented in this encounter Administered Medications Inactive Administered Medications - up to 3 most recent administrations Medication Order MAR Action Action Date Dose Rate Site 0.9% sodium chloride BOLUS New Bag 05/04/2018 8:34 PM CDT 1,000 mLs 1000 mL/hr Intravenous, 1,000 mL, ONCE, at 1,000 mL/hr, Administer over 1 Hours, On Fri05/04/18 at 2012, For 1 dose diazepam (VALIUM) injection 5 mg Given 05/04/2018 8:45 PM CDT 5 mg 5 mg, Intravenous, Administer over 1-4 Minutes, ONCE, On Fri05/04/18 at 2012, For 1 dose, This drug may cause significant respiratory depression. Monitor respiratory status and vital signs carefully for 1 hour after each dose. folic acid (FOLVITE) tablet 1 mg Given 05/04/2018 8:22 PM CDT 1 mg 1 mg, Oral, ONCE, On Fri05/04/18 at 2012, For 1 dose multivitamin w/minerals (THERA-VIT-M) Given 05/04/2018 8:22 PM C DT 1 tablet tablet 1 tablet 1 tablet, Oral, ONCE, On Fri05/04/18 at 2012, For 1 dose potassium chloride ER (K-DUR/KLOR-CON M) CR Given 05/04/2018 9:58 PM CDT 20 mEq tablet 20 mEq 20 mEq, Oral, ONCE, On Fri05/04/18 at 2151, For 1 dose, DO NOT CRUSH sodium chloride 0.9% infusion at 125 mL/hr, Intravenous, CONTINUOUS, A dminister after the bolus., Starting on Fri05/04/18 at 2012, Until Fri05/05/18 at 0117 vitamin B1 (THIAMINE) tablet 100 mg Given 05/04/2018 8:22 PM CDT 100 mg 100 mg, Oral, ONCE, On Fri05/04/18 at 2012, For 1 dose documented in this encounter Active and Recently Administered Medications Times are shown in CDT. Scheduled Medication Order 05/02/2018 05/03/2018 05/04/2018 0.9% sodium chloride BOLUS (COMPLETED) 2033 (New Bag - Provider: Lucia Chang RN)2252 (Stopped - Provider: Lucia Chang RN) Intravenous, 1,000 mL, ONCE, at 1,000 mL /hr, Administer over 1 Hours, Fri05/04/18 at 2012, For 1 dose diazepam (VALIUM) injection 5 mg (COMPLETED) 2044 (Given - Provider: Lucia Chang, GENARO) 5 mg, Intravenous, Administer over 1-4 M inutes, ONCE, Fri05/04/18 at 2012, For 1 dose, This drug may cause significant respiratory depression. Monitor respiratory status and vital signs carefully for 1 hour after each dose. folic acid (FOLVITE) tablet 1 mg (COMPLETED) 2021 (Given - Provider: Brittnee Tyler, GENARO) 1 mg, Oral, ONCE, Fri05/04/18 at 2012, For 1 dose multivitamin w/minerals (THERA-VIT-M) tablet 1 tablet (COMPLETED ) 2021 (Given - Provider: Brittene Tyler, GENARO) 1 tablet, Oral, ONCE, Fri05/04/18 at 2012, For 1 dose potassium chloride ER (K-DUR/KLOR-CON M) CR tablet 20 mEq (COMPL ETED) 2157 (Given - Provider: Lucia Chang, RN) 20 mEq, Oral, ONCE, 05/04/18 at 215, For 1 dose, DO NOT TOBIAS H vitamin B1 (THIAMINE) tablet 100 mg (COMPLETED) 2021 (Given - Provider: Brittnee Tyler, GENARO) 100 mg, Oral, ONCE, 05/04/18 at 2013, For 1 dose Continuous Medication Order 05/02/2018 05/03/2018 05/04/2018 sodium chloride 0.9% infusion 20 13 (Canceled Entry - Provider: Orders Generic Provider - Comment: Automatically canceled at discontinue of medication order) at 125 mL/hr, Intravenous, CONTINUOUS, A dminister after the bolus., Starting Fri05/04/18 at 2012, Until Fri05/05/18 at 0117 documented in this encounter Care Teams Tool Clerk Relationship Specialty Start Date End Date Clinic, [facility] PCP - General 01/20/18 06/28/[address] [place] [id number] documented as of this encounter
--- OUTSIDE RECORDS SUMMARY | 2021-11-10 00:40 | XMS_ITS | Encounter Summary ---
:1980 Author Organization [facility] Address [address] [place] [address]. [place] [address] Care Team Providers Name Role Phone 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 PCP - General 01/20/18 06/28/[address] [place] [id number] documented as of this encounter
--- OUTSIDE RECORDS SUMMARY | 2021-11-10 00:40 | XMS_ITS | Encounter Summary ---
:1980 Author Organization [place] Address [address] [facility] 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 documented as of this encounter Last Filed Vital Signs Vital Sign Reading Time Taken Comments Blood Pressure 122/82 07/24/2018 4:10 PM CDT Pulse 70 07/24/2018 4:10 PM CDT Temperature 36.3 ??C (97.3 ??F) 07/24/2018 4:10 PM CDT Respiratory Rate 16 07/24/2018 4:10 PM CDT Oxygen Saturation 97% 07/24/2018 4:10 PM CDT Inhaled Oxygen Concentration - - Weight 89.4 kg (197 lb) 07/24/2018 4:10 PM CDT Height - - Body Mass Index 31.8 07/04/2018 9:43 PM CDT documented in this encounter Patient Instructions Patient InstructionsTatyana Haas APRN CNP - 07/24/2018 4:00 PM CDT -Use Miralax daily and stop when having loose stools. -triamcinolone cream twice per day. -Come back on Friday to be evaluated. documented in this encounter Progress Notes Tatyana Haas APRN CNP - 07/24/2018 4:00 PM CDT Subjective Stephani King is a 37 year old female who presents to clinic today for the following health issues: Patient is coming from [facility] where she is in treatment for alcohol dependence and presenting to clinic for constipation and Rash. Patient reports that she will be at till next Friday. Patient is seen by a PCP in [place]. Patient reports that she is smoking about 5 cigarettes per day. Denies any illicit drugs in her past. Constipation ?? Duration: 3 weeks; senna for 2 weeks - still having solid hard stools. ?? Description: Frequency of bowel movements: once every couple days Consistency of stool: small turds, tough to get out. ?? Intensity: moderate ?? Accompanying signs and symptoms: Abdominal pain: YES Rectal pain: no Blood in stool: YES Nausea/vomitting: no ?? History: Similar problems in past: no ?? Precipitating or alleviating factors: none Medications worsening symptoms: no ?? Therapies tried and outcome: senna Chronic laxative use: no Rash Duration of complaint: for about 3 weeks now. Patient has some scaring from picking and also new rashes appearing. Description: Location: upper chest, back and some in the the chin area. Character: round, red Itching (Pruritis): no Progression of Symptoms: waxing and waning Accompanying Signs & Symptoms: Fever: no Body aches or joint pain: no Sore throat symptoms: no Recent cold symptoms: no History: Previous similar rash: no, patient has scaring from healed areas. Precipitating factors: Exposure to similar rash: no New exposures: None Recent travel: no Alleviating factors: none, patient has been picking. Therapies Tried and outcome: Denies, patient has cream on medication list, but has not used as prescribed. Patient Active Problem List Diagnosis ??? CARDIOVASCULAR [...] 2 sections ??? History of stillbirth ??? Drug dependence (H) ??? H/O rupture of uterus ??? History of MRSA infection ??? Cardiac abnormality in fetus ??? MRSA infection greater than 3 months ago ??? Myopia of both eyes ??? premature rupture of membranes (PPROM) delivered, current hospitalization ??? S/P emergency hysterectomy ??? Alcohol abuse, continuous Past Surgical History: Procedure Laterality Date ??? BREAST SURGERY ABcess drained ??? SECTION ??? SECTION, IMMEDIATE HYSTERECTOMY, COMBINED N/A 12/24/2016 Procedure: COMBINED SECTION, IMMEDIATE HYSTERECTOMY; Section Immediate Hysterectomy, Bilateral Salpingectomy and Cystoscopy. Baby Boy born at 20:05; Surgeon: So Luciano MD; Location: [facility] OR ??? 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 ORTHOPEDIC SURGERY ??? THORACIC SURGERY Social History Tobacco Use ??? Smoking status: Current Every Day Smoker Packs/day: 0.25 Years: 10.00 Pack years: 2.50 Types: Cigarettes ??? Smokeless tobacco: Never Used ??? Tobacco comment: 5-8 cigarettes a day Substance Use Topics ??? Alcohol use: Not Currently Comment: sober 16 days Family History Problem Relation Age of Onset ??? Depression Mother ??? Psychotic Disorder Mother ??? Thyroid Disease Mother ??? Cerebrovascular Disease Father ??? Myocardial Infarction Father ??? Cancer Maternal Grandfather ??? Depression Brother ??? Depression Brother ??? Asthma Son Current Outpatient Medications Medication Sig Dispense Refill ??? bacitracin 500 UNIT/GM OINT Apply topically 2 times daily 14 g 0 ??? buprenorphine HCl-naloxone HCl (SUBOXONE) 8-[address] 1 Film under the tongue daily 7 Film 0 ??? buPROPion (WELLBUTRIN SR) 150 MG 12 hr tablet Take 150 mg by mouth 2 times daily ??? co-enzyme Q-10 100 MG CAPS capsule Take 100 mg by mouth ??? hydrOXYzine (ATARAX) 25 MG tablet Take 1 tablet (25 mg) by mouth every 4 hours as needed for anxiety 30 tablet 1 ??? levothyroxine (SYNTHROID/LEVOTHROID) 125 MCG tablet Take 1 tablet (125 mcg) by mouth every morning (before breakfast) 30 tablet 0 ??? multivitamin w/minerals (THERA-VIT-M) tablet Take 1 tablet by mouth daily 30 each 0 ??? naproxen (NAPROSYN) 500 MG tablet Take 1 tablet (500 mg) by mouth 2 times daily (with meals) for8 days 24 tablet 0 ??? nicotine (NICORETTE) [address] 1 each (2 mg) inside cheek every 2 hours as needed for smoking cessation 40 tablet 1 ??? polyethylene glycol (MIRALAX/GLYCOLAX) packet Take 17 g by mouth daily 10 packet 1 ??? traZODone (DESYREL) 50 MG tablet Take 1 tablet (50 mg) by mouth nightly as needed for sleep 30 tablet 1 ??? triamcinolone (KENALOG) 0.1 % external cream Apply topically 2 times daily 85.2 g 0 ??? venlafaxine (EFFEXOR-ER) 75 MG 24 hr tablet Take 1 tablet (75 mg) by mouth daily (with breakfast) 30 tablet 0 ??? vitamin B1 (THIAMINE) 100 MG tablet Take 1 tablet (100 mg) by mouth daily 30 tablet 0 ??? vitamin D3 2000 units tablet Take 2,000 Units by mouth daily 30 tablet 0 ??? nicotine (NICORETTE) [address] 1 each (2 mg) inside cheek as needed for smoking cessation 220 tablet 1 No Known Allergies Reviewed and updated as needed this visit by Provider Review of Systems ROS COMP: Constitutional, HEENT, cardiovascular, pulmonary, gi and gu systems are negative, except as otherwise noted. Objective BP 122/82 Pulse 70 Temp 97.3 ??F (36.3 ??C) Resp 16 Wt 89.4 kg (197 lb) LMP 05/24/2016 (Approximate) SpO2 97% BMI 31.80 kg/m?? Body mass index is 31.8 kg/m??. Physical Exam GENERAL: healthy, alert and no distress EYES: Eyes grossly normal to inspection, PERRL and conjunctivae and sclerae normal NECK: no adenopathy, no asymmetry, masses, or scars and thyroid normal to palpation RESP: lungs clear to auscultation - no rales, rhonchi or wheezes CV: regular rates and rhythm, normal S1 S2, no S3 or S4, no murmur, click or rub, peripheral pulses strong and no peripheral edema MS: no gross musculoskeletal defects noted, no edema NEURO: Normal strength and tone, mentation intact and speech normal SKIN: Generalized rash to upper chest and back and on the chin area. Rashes are circular with erythema around. Some are crusted and others scabbed over.Visible scaring noted in the same areas. Diagnostic Test Results: Labs reviewed in Epic Assessment & Plan 1. Drug-induced constipation See HPI. Discussed with patient about using the miralax until she starts having loose stools and then switching medication to as needed. - polyethylene glycol (MIRALAX/GLYCOLAX) packet; Take 17 g by mouth daily Dispense: 10 packet; Refill: 1 2. Rash and nonspecific skin eruption Generalized rash to upper chest and back and on the chin area. Rashes are circular with erythema around. Some are crusted and others scabbed over. Patient has also been picking at the rashes. Unclear about timeframe of the presence, patient was discharged from detox with cream for rash. Possible folliculitis, non-specific vs behavior concern- skin picking. - Patient to use triamcinolone cream to body rash and follow-up next week for reassessment. - triamcinolone (KENALOG) 0.1 % external cream; Apply topically 2 times daily Dispense: 85.2 g; Refill: 0 3. Alcohol abuse, continuous Patient is currently in treatment for her alcohol dependence. Continue with sobriety and treatment as prescribed. Patient Instructions -Use Miralax daily and stop when having loose stools. -triamcinolone cream twice per day. -Come back on Friday to be evaluated. I spent 25 min spent in direct face to face time with Stephani King, greater than 50% in counseling and coordination of care for: Rash, Constipation and Alcohol Dependence. Tatyana Haas APRN CNP [facility] documented in this encounter Plan of Treatment Upcoming Encounters Date Type Specialty Care Team Description 11/15/2021 Office Visit W[facility] Luis Camara, [place] [address] [place] [address] (Wo rk) documented as of this encounter Visit Diagnoses Diagnosis Drug-induced constipation - Primary Other constipation Rash and nonspecific skin eruption Rash and other nonspecific skin eruption Alcohol abuse, continuous Nondependent alcohol abuse, continuous d rinking behavior documented in this encounter Additional Health Concerns Assessment Noted Time PHQ-9 Depression Total Score: 10 07/08/2018 1:27 PM CD T documented as of this encounter Care Teams Life Insurance Salesperson Relationship Specialty Start Date End Date Clinic, [facility] PCP - General 01/20/18 06/28/[address] [place] [id number] documented as of this encounter
--- OUTSIDE RECORDS SUMMARY | 2021-11-10 00:40 | XMS_ITS | Encounter Summary ---
:1980 Author Organization [facility] Address [address] [place] [address]. [place] [address] Care Team Providers Name Role Phone Clinic, [facility] Primary Care Provide r Reason for Visit Reason Comments Alcohol Problem Palpitations Encounter Details Date Type Department Care Team Description 01/31/2018 - Emergency [facility] Shay Martinez MD Alcoholic intoxication without complicat ion (H); 02/01/2018 [facility] Emergency EMERGENCY Uncomplicat ed opioid dependence (H); Dept [facility] S/P emergency hysterectomy; [address] Slow transit constipation; [place], [place] Major depre ssive disorder, recurrent episode, moderate (H) [id number] (Wo rk) Social History Tobacco Use Types [...] at Date Recorded Female 01/14/2020 10:57 AM WELL DRILLER HELPER documented as of this encounter Last Filed Vital Signs Vital Sign Reading Time Taken Comments Blood Pressure 145/72 01/31/2018 8:16 PM WELL DRILLER HELPER Pulse - - Temperature 36.1 ??C (97 ??F) 01/31/2018 8:16 PM WELL DRILLER HELPER Respiratory Rate 18 01/31/2018 8:16 PM WELL DRILLER HELPER Oxygen Saturation 97% 01/31/2018 8:16 PM WELL DRILLER HELPER Inhaled Oxygen Concentration - - Weight - [...] tabletIndications: S/P for 3 days emergency hysterectomy DiphenhydrAMINE HCl Take by mouth as 0 07/04/2018 (BENADRYL ALLERGY PO) needed hydrOXYzine (ATARAX) 25 MG Take 2-4 tablets 40 tablet 1 07/07/2018 tablet (50-100 mg) by mouth every 6 hours as needed for anxiety ibuprofen (ADVIL/MOTRIN) Take 1 tablet (600 12 tablet 1 07/07/2018 600 MG tabletIndications: mg) by mouth every S/P emergency 6 hours as needed hysterectomy for moderate pain levothyroxine Take 1 tablet (125 3 tablet 0 01/31/2018 (SYNTHROID/LEVOTHROID) 125 mcg) by mouth MCG tablet daily for 3 days polyethylene glycol Take 17 g (1 51 [...] encounter ED Notes Tanesha Frost RN - 01/31/2018 8:19 PM CST Patient presents to ED due alcohol problem and palpitations. States I drink a lot and it depends on the stress level. 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 Requesting to go to detox Denies suicidal or homicidal ideation DRILLER HELPER Shay Martinez MD - 01/31/2018 8:12 PM CST History Chief Complaint: Alcohol Intoxication HPI Stephani Knig is a 37 year old female with a history of substance abuse who presents with alcohol intoxication. The patient reports that for the past 2-3 months after drinking alcohol she has developed heart palpitations that felt like her heart was skipping beats. She notes that she typically drinks one pint of vodka per day, and has had at least that much today. She also attests to facial numbness that improves when alcohol wears off as well as generalized weakness and panicked breathing after she stops drinking. The patient was seen here 11 days ago for similar symptoms. She states that she does want to enter into a detox program, and has not been enrolled in one in the past for alcohol. She was in a detox program 10 years ago for heroin dependence. The patient also endorses smoking three cigarettes per day, and is also taking Aspirin. The patient denies seizures and street drug use. Allergies: No known drug allergies Medications: Wellbutrin Hydroxyzine Levothyroxine Effexor Subutex Ferrous sulfate Folic acid Miralax Compazine Senna-docusate Past Medical History: Suboxone maintenance treatment complicating , antepartum , premature rupture of membranes, delivered High-risk , first trimester Twin with loss and retention of one fetus in first trimester Depression Chronic hepatitis C without hepatic coma anomaly in prior Stillbirth Drug dependence Rupture of uterus MRSA Hypothyroidism affecting in first trimester Myopia of both eyes Uncomplicated opioid dependency Cardiac abnormality in fetus Moderate major depression Anxiety Past Surgical History: Breast surgery section section, immediate hysterectomy, 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 Neurological: Positive for weakness (generalized) and numbness (facial). Negative for seizures. Psychiatric/Behavioral: Negative for suicidal ideas. All other systems reviewed and are negative. Physical Exam Patient Vitals for the past 24 hrs: BP Temp Temp src Heart Rate Resp SpO2 01/31/182015 145/72 97 ??F (36.1 ??C) Temporal 98 18 97 % Physical Exam Constitutional: She appears well-developed and well-nourished. HENT: Right Ear: External ear normal. Left Ear: External ear normal. Mouth/Throat: Oropharynx is clear and moist. No oropharyngeal exudate. TM's clear bilaterally Eyes: Conjunctivae are normal. Pupils are equal, round, and reactive to light. No scleral icterus. Neck: Normal range of motion. Neck supple. Cardiovascular: Normal rate, regular rhythm, normal heart sounds and intact distal pulses. Exam reveals no gallop and no friction rub. No murmur heard. Pulmonary/Chest: Effort normal and breath sounds normal. No respiratory distress. She has no wheezes. She has no rales. Abdominal: Soft. Bowel sounds are normal. She exhibits no distension and no mass. There is no tenderness. Musculoskeletal: Normal range of motion. She exhibits no edema. Neurological: She is alert. Slurring words at times. 5/5 strength x 4, no focal weakness Skin: Skin is warm and dry. No rash noted. Psychiatric: Intoxicated appearing, denies SI Emergency Department Course ECG (20:28:51): Rate 89 bpm. GA interval 170. QRS duration 94. QT/QTc 374/455. P-R-T axes 49 55 42. Normal sinus rhythm. Normal ECG. Interpreted by Shay Martinez MD. Laboratory: CBC: WNL (WBC 4.4, HGB 13.7, PLT 151) CMP: Glucose 104 (H), ALT 205 (H), AST 271 (H) o/w WNL (Creatinine 0.79) Alcohol Ethyl: 0.33 (HH) Interventions: 2112: NS 1L IV Bolus 2229: Ativan 0.5 mg PO Emergency Department Course: Past medical records, nursing notes, and vitals reviewed. 2108: I performed an exam of the patient and obtained history, as documented above. IV inserted and blood drawn. EKG obtained, results above. 2239: I rechecked the patient. Explained findings to the patient and her father. Findings and plan explained to the Patient and her father. Patient will be transferred to [facility] via EMS. Discussed the case with the detox center, who will accept the patient to a monitored bed for further monitoring, evaluation, and treatment. Impression & Plan Medical Decision Making: Stephani King is a 37 year old female who presents for alcohol intoxication and needing detox. Shedenies suicidal ideation and she has drank heavily for years now. Her last rehab was quite a long time ago. Patient does not want to talk to DEC as she just wants to go straight to detox. We did give her a three- day prescription for medication and she was transported by ambulance to the detox center. Diagnosis: ICD-10-CM 1. Alcoholic intoxication without complication (H) F10.920 Disposition: Transferred to [facility] via EMS. Discharge Medications: Modified buprenorphine 2 MG Subl sublingual tablet Commonly known as: SUBUTEX 2 mg, Sublingual, 2 TIMES DAILY What changed: ?? how much to take ?? how to take this ?? when to take this ?? additional instructions Ezra Chan 01/31/2018 [facility] EMERGENCY DEPARTMENT I, Ezra Chan, am serving as a scribe at 9:09 PM on 01/31/2018 to document services personally performed by Shay Martinez MD based on my observations and the provider's statements to me. Shay Martinez MD 01/31/18 [id number] DRILLER HELPER documented in this encounter Plan of Treatment Upcoming Encounters Date Type Specialty Care Team Description 11/15/2021 Office Visit Wound Care Luis Camara, [place] [address] [place] [address] (Wo rk) documented as of this encounter Procedures Procedure Name Priority Date/Time Associated Comments Diagnosis CBC WITH PLATELETS & STAT 01/31/2018 9:13 PM R esults for this DIFFERENTIAL WELL DRILLER HELPER procedure are i n the results section. COMPREHENSIVE STAT 01/31/2018 9:13 PM Results for this METABOLIC PANEL WELL DRILLER HELPER procedure ar e in the results section. ETHYL ALCOHOL LEVEL STAT 01/31/2018 9:13 PM Re sults for this WELL DRILLER HELPER procedure are i n the results section. EKG 12-LEAD, TRACING STAT 01/31/2018 8:58 PM R esults for this ONLY WELL DRILLER HELPER procedure are i n the results section. documented in this encounter Results (ABNORMAL) Comprehensive metabolic panel (01/31/2018 9:13 PM WELL DRILLER HELPER) P athologist Signature Sodium 141 133 - 144 01/31/2018 [facility] mmol/L 9:45 PM [facility] Potassium 3.5 3.4 - 5.3 01/31/2018 [facility] mmol/L 9:45 PM [facility] Chloride 107 94 - 109 01/31/2018 [facility] mmol/L 9:45 PM [facility] Carbon Dioxide 28 20 - 32 01/31/2018 [facility] mmol/L 9:45 PM [facility] Anion Gap 6 3 - 14 01/31/2018 [facility] mmol/L 9:45 PM [facility] Glucose 104 (H) 70 - 99 01/31/2018 [facility] mg/dL 9:45 PM [facility] Urea Nitrogen 10 7 - 30 01/31/2018 [facility] mg/dL 9:45 PM [facility] Creatinine 0.79 0.52 - 01/31/2018 [facility] 1.04 mg/dL 9:45 PM [facility] GFR Estimate 82 >60 01/31/2018 [facility] mL/min/1.7 9:[address] Comment: Non GFR Calc GFR Estimate If >90 >60 mL/min/1.7m2 01/31/2018 9:45 P [facility] Comment: GFR Calc Calcium 8.5 8.5 - 10.1 01/31/2018 9:45 PM [place] [facility] [place] mg/dL [facility] Bilirubin Total 0.5 0.2 - 1.3 mg/dL 01/31/2018 9:45 PM [facility] Albumin 3.7 3.4 - 5.0 g/dL 01/31/2018 9:45 PM [facility] Protein Total 7.7 6.8 - 8.8 g/dL 01/31/2018 9:45 PM [facility] Alkaline Phosphatase 134 40 - 150 U/L 01/31/2018 9:45 PM [facility] ALT 205 (H) 0 - 50 U/L 01/31/2018 9:45 PM [facility] AST 271 (H) 0 - 45 U/L 01/31/2018 9:45 PM [facility] Specimen Anatomical Collection Method Collection Time Receive d Time (Source) Location / / Volume Laterality Blood specimen 01/31/2018 9:13 PM 018 9:14 (specimen) WELL DRILLER HELPER PM WELL DRILLER HELPER Shay Martinez MD LAB - BLOOD ORDERABLES Performing Organization Address City/State/ZIP Code Phon e Number [place] [address] [address] [place] [address] [facility] [address] [phone] (ABNORMAL) CBC with platelets differential (01/31/2018 9:13 PM [facility]) [facility] Method Time Signature WBC 4.4 4.0 - 01/31/2018 [facility] 11.0 9:19 PM [facility] 10e9/L [facility] RBC Count 4.08 3.8 - 5.2 01/31/2018 [facility] 10e12/L 9:19 PM [facility] Hemoglobin 13.7 11.7 - 01/31/2018 [facility] 15.7 g/dL 9:19 PM [facility] Hematocrit 40.8 35.0 - 01/31/2018 [facility] 47.0 % 9:19 PM [facility] MCV 100 78 - 100 01/31/2018 [facility] fl 9:19 PM [facility] MCH 33.6 (H) 26.5 - 01/31/2018 [facility] 33.0 pg 9:19 PM [facility] MCHC 33.6 31.5 - 01/31/2018 [facility] 36.5 g/dL 9:19 PM [facility] RDW 12.0 10.0 - 01/31/2018 [facility] 15.0 % 9:19 PM [facility] Platelet Count 151 150 - 450 01/31/2018 [facility] 10e9/L 9:19 PM [facility] Diff Method Automated 01/31/2018 [facility] Method 9:19 PM [facility] % Neutrophils 35.4 % 01/31/2018 [facility] 9:19 PM [facility] % Lymphocytes 51.7 % 01/31/2018 [facility] 9:19 PM [facility] % Monocytes 9.7 % 01/31/2018 [facility] 9:19 PM [facility] % Eosinophils 2.5 % 01/31/2018 [facility] 9:19 PM [facility] % Basophils 0.5 % 01/31/2018 [facility] 9:19 PM [facility] % Immature 0.2 % 01/31/2018 [facility] Granulocytes 9:19 PM [facility] Nucleated RBCs 0 0 /100 01/31/2018 [facility] 9:19 PM [facility] Absolute 1.5 (L) 1.6 - 8.3 01/31/2018 [facility] Neutrophil 10e9/L 9:19 PM [facility] Absolute 2.3 0.8 - 5.3 01/31/2018 [facility] Lymphocytes 10e9/L 9:19 PM [facility] Absolute 0.4 0.0 - 1.3 01/31/2018 [facility] Monocytes 10e9/L 9:19 PM [facility] Absolute 0.1 0.0 - 0.7 01/31/2018 [facility] Eosinophils 10e9/L 9:19 PM [facility] Absolute 0.0 0.0 - 0.2 01/31/2018 [facility] Basophils 10e9/L 9:19 PM [facility] Abs Immature 0.0 0 - 0.4 01/31/2018 [facility] Granulocytes 10e9/L 9:19 PM [facility] Absolute 0.0 01/31/2018 [facility] Nucleated RBC 9:19 PM [facility] Specimen Anatomical Collection Method Collection Time Receive d Time (Source) Location / / Volume Laterality Blood specimen 01/31/2018 9:13 PM 018 9:14 (specimen) WELL DRILLER HELPER PM WELL DRILLER HELPER Shay Martinez MD LAB - BLOOD ORDERABLES Performing Organization Address City/State/ZIP Code Phon e Number [facility] [address] [place], [place] [address] [place] [address] [address] [place], [place] [address] [phone] (ABNORMAL) Alcohol ethyl (01/31/2018 9:13 PM WELL DRILLER HELPER) P athologist Signature Ethanol g/dL 0.33 (HH) <0.01 g/dL 01/31/2018 [place] 9:48 PM [facility] Comment: Critical Value called to and read back Catarino SOSA (ERA) ON 01.31.18 AT 2142 BY AEF Specimen Anatomical Collection Method Collection Time Receive d Time (Source) Location / / Volume Laterality Blood specimen 01/31/2018 9:13 PM 018 9:14 (specimen) WELL DRILLER HELPER PM WELL DRILLER HELPER Shay Martinez MD LAB - BLOOD ORDERABLES Performing Organization Address [facility]/ZIP Code Phon e Number [facility] [address] [place], [place] [address] [facility] [address] [place], [place] [address], [facility] [phone] EKG 12 lead (01/31/2018 8:58 PM WELL DRILLER HELPER) [facility] gist Method Time Signature Interpretation ECG Click View RADIOLOGY Image link RESULTS to view waveform and result Specimen (Source) Anatomical Collection Method Collection Time Re ceived Time Location / / Volume Laterality 01/31/2018 8:58 PM WELL DRILLER HELPER Mary Grace Molina MD ECG ORDERABLES Performing Organization Address City/State/ZIP 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 Slow transit constipation Major depressive disorder, recurrent epi sode, moderate (H) Major depressive disorder, recurrent epi sode, moderate documented in this encounter Administered Medications Inactive Administered Medications - up to 3 most recent administrations Medication Order MAR Action Action Date Dose Rate Site 0.9% sodium chloride BOLUS New Bag 01/31/2018 9:13 PM WELL DRILLER HELPER 1,000 mLs 1000 mL/hr Intravenous, 1,000 mL, ONCE, at 1,000 mL/hr, Administer over 1 Hours, On 01/31/18 at 2056, For 1 dose LORazepam (ATIVAN) tablet 0.5 mg Given 01/31/2018 10:30 PM WELL DRILLER HELPER 0.5 mg 0.5 mg, Oral, ONCE, On 01/31/18 at 2219, For 1 dose sodium chloride 0.9% infusion at 125 mL/hr, Intravenous, CONTINUOUS, A dminister after the boluses., Starting on 01/31/18 at 2056, Until 02/01/18 at 0203 documented in this encounter Active and Recently Administered Medications Times are shown in WELL DRILLER HELPER. Scheduled Medication Order 01/30/2018 01/31/2018 02/01/2018 0.9% sodium chloride BOLUS 2056 (Cancele d Entry - Provider: Orders Generic Provider - Comment: Automatically canceled at discontinue of medication order) Intravenous, 1,000 mL, ONCE, at 1,000 mL /hr, Administer over 1 Hours, 01/31/18 at 2056, For 1 dose 0.9% sodium chloride BOLUS (COMPLETED) 2 113 (New Bag - Provider: Joe Gallardo RN)2344 (Stopped - Provider: Joe Gallardo RN) Intravenous, 1,000 mL, ONCE, at 1,000 mL /hr, Administer over 1 Hours, 01/31/18 at 2056, For 1 dose LORazepam (ATIVAN) tablet 0.5 mg (COMPLETED) 2229 (Given - Provider: Joe Gallardo RN) 0.5 mg, Oral, ONCE, 01/31/18 at 2219, For 1 dose Continuous Medication Order 01/30/2018 01/31/2018 02/01/2018 sodium chloride 0.9% infusion 2056 (Canc eled Entry - Provider: Orders Generic Provider - Comment: Automatically canceled at discontinue of medication order) at 125 mL/hr, Intravenous, CONTINUOUS, A dminister after the boluses., Starting 01/31/18 at 2056, Until 02/01/18 at 0203 documented in this encounter Care Teams Laborer Gold Leaf Relationship Specialty Start Date End Date [facility] PCP - General 01/20/18 06/28/[address] [place], [place] [address] [address] documented as of this encounter
--- OUTSIDE RECORDS SUMMARY | 2021-11-10 00:40 | XMS_ITS | Encounter Summary ---
:1980 Author Organization [place] Address [address] [place] [address]. [place] [address] Care Team Providers Name Role Phone Clinic, [facility] Primary Care Provide r Reason for Visit Reason Comments Chest Pain Encounter Details Date Type Department Care Team Description 01/20/2018 - Emergency [facility] Marycarmen Banks Alcohol withdrawal syndrome without complication (H); 01/21/2018 [facility] Emergency MD Angelina Anxiety Dept [facility] [address] [place], [place] [address] [facility] [address] [place] [address] [phone] (Wo rk) Social History Tobacco Use Types [...] at Date Recorded Female 01/14/2020 10:57 AM ORDER PROCESSING SPECIALIST documented as of this encounter Last Filed Vital Signs Vital Sign Reading Time Taken Comments Blood Pressure 135/80 01/21/2018 12:30 AM ORDER PROCESSING SPECIALIST Pulse 84 01/20/2018 10:52 PM ORDER PROCESSING SPECIALIST Temperature 36.8 ??C (98.2 ??F) 01/20/2018 10:23 PM ORDER PROCESSING SPECIALIST Respiratory Rate 17 01/21/2018 12:30 AM ORDER PROCESSING SPECIALIST Oxygen Saturation 98% 01/21/2018 12:30 AM ORDER PROCESSING SPECIALIST Inhaled Oxygen Concentration - - Weight - - Height - - Body Mass Index - - documented in this encounter Medications at Time of Discharge Medication Sig Dispensed Refills Start Date End Date acetaminophen (TYLENOL) Take 2 tablets (650 60 tablet 0 11/201601/31/2018 325 MG mg) by mouth every 4 tabletIndications: S/P hours as needed for emergency mild pain hysterectomy ACETAMINOPHEN PO 0 07/05/19 19 buprenorphine (SUBUTEX) Take 1 tab 3 times daily for 7 days, then 4 6 tablet 0 09/04/2017 01/31/2018 2 MG SUBL sublingual Take 1 tab 2 times daily for 7 days, then tabletIndications: Take 1 tab 1 times daily for 7 days, then Uncomplicated opioid Take 1/2 tab daily for 8 days dependence (H) buPROPion (WELLBUTRIN Take 1 tablet (150 60 tablet 1 201701/31/2018 SR) 150 MG 12 hr mg) by mouth 2 times tabletIndications: Major daily depressive disorder, recurrent episode, moderate (H), Uncomplicated opioid dependence (H) buPROPion (WELLBUTRIN Take 1 tablet (150 60 tablet 0 201601/31/2018 SR) 150 MG 12 hr mg) by mouth daily tabletIndications: S/P emergency hysterectomy cephALEXin (KEFLEX) 500 Take 1 capsule (500 14 capsule 0 01/31/2018 MG capsuleIndications: mg) by mouth 2 times Wound infection daily diphenhydrAMINE Take 1 tablet (25 60 tablet 1 08/04/2016 (BENADRYL ALLERGY) 25 MG mg) by mouth every 8 tabletIndications: hours as needed for Itching itching or allergies DiphenhydrAMINE HCl Take by mouth as 0 07/04/2018 (BENADRYL ALLERGY PO) needed ferrous sulfate (IRON) Take 1 tablet (325 30 tablet 2 12/2701/31/2018 325 (65 FE) MG mg) by mouth daily tabletIndications: S/P (with breakfast) emergency hysterectomy folic acid (FOLVITE) 1 Take 1 tablet (1 mg) 100 tablet 3 01/31/2018 MG tablet by mouth daily hydrOXYzine (ATARAX) 25 Take 2-4 tablets 30 tablet 1 201701/31/2018 MG tablet (50-100 mg) by mouth every 6 hours as needed for anxiety ibuprofen (ADVIL/MOTRIN) Take 1 tablet (600 30 tablet 1 10/201601/31/2018 600 MG mg) by mouth every 6 tabletIndications: S/P hours as needed for emergency moderate pain hysterectomy levothyroxine Take 1 tablet by 0 01/31 (SYNTHROID, LEVOTHROID) mouth daily 125 MCG tablet omeprazole 20 MG Take 1 tablet (20 30 tablet 1 11/29/2016 1 04/03/2017 tabletIndications: mg) by mouth daily Gastroesophageal reflux disease, esophagitis presence not specified oxyCODONE HCl Take 20 mg by mouth 28 tablet 0 12/27/2016 (ROXICODONE) 20 MG TABS every 6 hours as immediate release needed tabletIndications: S/P emergency hysterectomy, S/P laparotomy oxyCODONE IR Take 1-2 tablets 56 tablet 0 12/27/20162017 (ROXICODONE) 10 MG (10-20 mg) by mouth tabletIndications: S/P every 6 hours as emergency needed for hysterectomy breakthrough pain polyethylene glycol Take 17 g (1 capful) 510 g 1 201601/31/2018 (MIRALAX) by mouth daily powderIndications: Slow transit constipation prochlorperazine Take 1 tablet (10 20 tablet 0 01/21/2018 1 04/03/2017 (COMPAZINE) 10 MG tablet mg) by mouth every 6 hours as needed for nausea or vomiting senna-docusate Take 1-2 tablets by 60 tablet 0 12/26/2016 1 04/03/2017 (SENOKOT-S;PERICOLACE) mouth 2 times daily 8.6-50 MG per tabletIndications: S/P emergency hysterectomy venlafaxine (EFFEXOR-XR) Take 2 capsules (300 60 capsule 1 0 08/24/2015 01/31/2018 150 MG 24 hr mg) by mouth daily capsuleIndications: Major depressive disorder, recurrent episode, moderate (H) documented as of this encounter ED Notes Emely Chicas RN - 01/21/2018 12:22 AM CST IV cannula removed from RAC intact R PROCESSING SPECIALIST Shukri Fuentes RN - 01/20/2018 10:24 PM CST Pt arrives with chills x2 days and palpitations for a couple months. Pt states she drinks 1 L every 2 days, today only 3 mixed drinks. No headache, +nausea/ vomiting. ABCs intact. R PROCESSING SPECIALIST Marycarmen Banks MD - 01/20/2018 10:08 PM CST History Chief Complaint: Palpitations HPI Stephani King is a 37 year old female who presents to the emergency department for evaluation of palpitations. She reports she has been having palpation sensations for a few months where her heart feels like it is hiccupping, however today she also became short of breath, diaphoretic, and was overall more uncomfortable with the sensation which prompted the presentation to the ED. Here, she also reports feeling nauseous with these episodes. She denies any true chest pain, abdominal pain, or increased lower extremity swelling. Additionally, she reports her anxiety levels were a lot higher today, notably smaller things were annoying her. She was having trouble sleeping and felt uncomfortable lying down today as well. Of note, she reports she drinks pretty heavily most days, up to 1L every 2 days, however today she drank less, only 3 mixed drinks. Also, she denies any recent change to her suboxone medication. Cardiac/PE/DVT Risk Factors: The patient has no history of hypertension, hyperlipidemia, diabetes, but does report smoking. She reports a family history of heart disease. The patient denies any personal or familial history of PE, DVT, or clotting disorder. The patient reports no recent travel, surgery, or other immobilizations. Allergies: NKDA Medications: Buprenorphine Bupropion Benadryl Levothyroxine Omeprazole Senna-docusate Venlafaxine Past Medical History: Anxiety & Depression Chronic hepatitis C Hypothyroidism Opoid dependence MRSA Past Surgical History: Breast surgery C section x2 Hysterectomy Orthopedic surgery Family History: Depression Psychotic disorder Thyroid disease Asthma Social History: Marital Status: [2] Presents with parents Smokes about 5 cigarettes per day Alcohol use: binge drinks 1L every 2 days Review of Systems Constitutional: Positive for diaphoresis. Negative for fever. Respiratory: Positive for shortness of breath. Cardiovascular: Positive for palpitations. Negative for chest pain and leg swelling. Gastrointestinal: Positive for nausea. Negative for abdominal pain, diarrhea and vomiting. Psychiatric/Behavioral: Positive for sleep disturbance. The patient is nervous/anxious. All other systems reviewed and are negative. Physical Exam Patient Vitals for the past 24 hrs: BP Temp Temp src Pulse Heart Rate Resp SpO2 01/21/18 0015 (!) 132/93 - - - 87 13 - 01/21/18 0000 131/83 - - - 92 23 - 01/20/18 2345 130/88 - - - - 13 - 01/20/18 2330 (!) 136/100 - - - 84 (!) 7 - 01/20/18 2315 151/90 - - - 99 19 - 01/20/18 2252 - - - 84 - - - 01/20/18 2245 135/90 - - - 84 13 99 % 01/20/18 2223 (!) 147/108 98.2 ??F (36.8 ??C) Oral - 104 18 100 % Physical Exam Constitutional: She is cooperative. HENT: Right Ear: Tympanic membrane normal. Left Ear: Tympanic membrane normal. Mouth/Throat: Oropharynx is clear and moist and mucous membranes are normal. Eyes: Conjunctivae are normal. Neck: Normal range of motion. Cardiovascular: Regular rhythm and normal heart sounds. Pulmonary/Chest: Effort normal and breath sounds normal. Abdominal: Soft. Normal appearance and bowel sounds are normal. There is no rebound and no guarding. Musculoskeletal: Normal range of motion. Lymphadenopathy: She has no cervical adenopathy. Neurological: She is alert. Skin: Skin is warm and dry. Psychiatric: She has a normal mood and affect. Emergency Department Course ECG: Indication: Palpations Time: 2218 Vent. Rate 98 bpm. OK interval 150. QRS duration 86. QT/QTc 376/480. P-R-T axis 59 64 39. Normal sinus rhythm. Prolonged QT. Abnormal ECG. Read time: 2245. Imaging: Radiographic findings were communicated with the patient who voiced understanding of the findings. XR Chest PA & LAT: No radiographic evidence of acute chest abnormality, as per radiology. Laboratory: CBC: WBC: 5.0, HGB: 15.3, PLT: 170 CMP: Glucose 103 (H), Bilirubin: 1.5 (H), ALT: 202 (H), AST: 266 (H), o/w WNL (Creatinine: 0.76) 223 Troponin: <0.015 D dimer: 0.4 Alcohol ethyl: <0.01 Magnesium: 2.1 Interventions: 2247 Zofran, 4 mg, IV injection Ativan, 1 mg, IV injection 2303 NS 1L IV 2334 Thera-vit-M, 1 tablet, PO 2335 Thiamine, 100 mg, PO Compazine, 5 mg, IV injection 2336 Benadryl, 25 mg, IV injection Emergency Department Course: Nursing notes and vitals reviewed. (2231) I performed an exam of the patient as documented above. ?? IV inserted. Medicine administered as documented above. Blood drawn. This was sent to the lab for further testing, results above. ?? The patient was sent for a chest x-ray while in the emergency department, findings above. ?? EKG obtained in the ED, see results above. (2323) I rechecked the patient and discussed the results of her workup thus far. ?? Findings and plan explained to the Patient. Patient discharged home with instructions regarding supportive care, medications, and reasons to return. The importance of close follow-up was reviewed. The patient was prescribed Atarax and Compazine. ?? I personally reviewed the laboratory results with the Patient and answered all related questions prior to discharge. ?? Impression & Plan Medical Decision Making: Stephani King is a 37 year old female who presents to the emergency department with several monthsof palpitations along with more recent symptoms of nausea and anxiety. I suspect alcohol withdrawal is at the basis of her symptoms as she typically drinks about a liter of alcohol per day and now has a negligible blood alcohol level. However, she does not have significant hypertension, tachycardia, or tremulousness to indicate more serious withdrawal. With her palpitations I considered a broad differential. Discussed with her that she does have a mildly prolonged QT interval but at 450 ms I would not anticipate this would cause spontaneous arrhythmia. I will have her follow-up with primary care and consider cardiology follow-up. No evidence of cardiac ischemia. No significant electrolyte derangement. Because of her history of alcohol abuse she was given vitamins including thiamine and folate here, as well as receiving Ativan and Zofran for relief of symptoms. She tells me that she has had a pres cription for Zofran at home but it gives her perioral paresthesias. I gave Compazine and Benadryl for symptomatic relief. This did seem to provide some help. Discussed with her options of sending her to detox for medically supervised withdrawal. Despite her parents being here and telling her they would help with this she declined to go to detox tonight. She will contact her addiction medicine specialist tomorrow to talk about further treatment. Return if worse or new symptoms. Critical Care time: none Diagnosis: ICD-10-CM 1. Alcohol withdrawal syndrome without complication (H) F10.230 2. Anxiety F41.9 Disposition: discharged to home Discharge Medications: New Prescriptions HYDROXYZINE (ATARAX) 25 MG TABLET Take 2-4 tablets (50-100 mg) by mouth every 6 hours as needed foranxiety PROCHLORPERAZINE (COMPAZINE) 10 MG TABLET Take 1 tablet (10 mg) by mouth every 6 hours as needed for nausea or vomiting Scribe Disclosure: INora, am serving as a scribe on 01/20/2018 at 10:32 PM to personally document services performed by Marycarmen Banks MD based on my observations and the provider's statements to me. Nora Correa 01/20/2018 [facility] EMERGENCY [facility]PART[facility] Marycarmen Banks MD 01/21/18 0058 R PROCESSING SPECIALIST documented in this encounter Plan of Treatment Upcoming Encounters Date Type Specialty Care Team Description 11/15/2021 Office Visit Wound Care Luis Camara DPM [address] [place] [address] (Wo rk) documented as of this encounter Procedures Procedure Name Priority Date/Time Associated Comments Diagnosis XR CHEST 2 VIEWS STAT 01/20/2018 10:58 Results for this PM ORDER PROCESSING SPECIALIST procedure are i n the results section. CBC WITH PLATELETS & STAT 01/20/2018 10:36 Res ults for this DIFFERENTIAL PM ORDER PROCESSING SPECIALIST procedure are i n the results section. TROPONIN I STAT 01/20/2018 10:36 Results for this PM ORDER PROCESSING SPECIALIST procedure are i n the results section. MAGNESIUM Routine 01/20/2018 10:36 Results for this PM ORDER PROCESSING SPECIALIST procedure are i n the results section. D DIMER QUANTITATIVE Routine 01/20/2018 10:36 Res ults for this PM ORDER PROCESSING SPECIALIST procedure are i n the results section. COMPREHENSIVE STAT 01/20/2018 10:36 Results fo r this METABOLIC PANEL PM ORDER PROCESSING SPECIALIST procedure ar e in the results section. ETHYL ALCOHOL LEVEL Routine 01/20/2018 10:36 Resu lts for this PM ORDER PROCESSING SPECIALIST procedure are i n the results section. EKG 12-LEAD, TRACING STAT 01/20/2018 10:18 Res ults for this ONLY PM ORDER PROCESSING SPECIALIST procedure are i n the results section. documented in this encounter Results Chest XR, PA & LAT (01/20/2018 10:58 PM ORDER PROCESSING SPECIALIST) Anatomical Region Laterality Modality Chest Digital Radiography Specimen (Source) Anatomical Location Collection Method / Collectio n Time Received Time / Laterality Volume Impressions 01/20/2018 11:03 PM ORDER PROCESSING SPECIALIST IMPRESSION: No radiographic evidence of acute chest abnormality. GIOVANNI RHODES MD Narrative 01/20/2018 11:03 PM ORDER PROCESSING SPECIALIST CHEST TWO VIEWS 01/20/2018 10:58 PM HISTORY: Dyspnea. COMPARISON: None. FINDINGS: Heart size and pulmonary vascu larity are within normal limits. The lungs are clear. No pneumoth orax or pleural effusion. Procedure Note Giovanni Rhodes MD - 01/20/2018Forma tting of this note might be different from the original. CHEST TWO VIEWS 01/20/2018 10:58 PM HISTORY: Dyspnea. COMPARISON: None. FINDINGS: Heart size and pulmonary vascu larity are within normal limits. The lungs are clear. No pneumoth orax or pleural effusion. IMPRESSION: No radiographic evidence of acute chest abnormality. GIOVANNI RHODES MD Marycarmen Banks MD IMG DIAGNOSTIC IMAGING ORDER JEFFERY Magnesium (01/20/2018 10:36 PM ORDER PROCESSING SPECIALIST) P athologist Signature Magnesium 2.1 1.6 - 2.3 01/20/2018 [facility] mg/dL 11:02 PM [facility] Specimen Anatomical Collection Method Collection Time Receive d Time (Source) Location / / Volume Laterality 01/20/2018 10:36 01/20/2018 PM ORDER PROCESSING SPECIALIST 10:37 PM ORDER PROCESSING SPECIALIST Marycarmen Banks MD LAB - BLOOD ORDERABLES Performing Organization Address City/State/ZIP Code Phon e Number M [facility] [address] [place], [place] [address] [place] [address] [address] [place], [place] [address], [facility] [phone] Alcohol ethyl (01/20/2018 10:36 PM ORDER PROCESSING SPECIALIST) P athologist Signature Ethanol g/dL <0.01 <0.01 g/dL 01/20/2018 [place] 11:02 PM [facility] Specimen Anatomical Collection Method Collection Time Receive d Time (Source) Location / / Volume Laterality 01/20/2018 10:36 01/20/2018 PM ORDER PROCESSING SPECIALIST 10:37 PM ORDER PROCESSING SPECIALIST Marycarmen Banks MD LAB - BLOOD ORDERABLES Performing Organization Address City/[facility]/ZIP Code Phon e Number M [facility] [address] [place], [place] [address] [place] [address] [address] [place], [place] [address], [facility] [phone] D dimer quantitative (01/20/2018 10:36 PM ORDER PROCESSING SPECIALIST) P athologist Signature D Dimer 0.4 0.0 - 0.50 01/20/2018 [facility] ug/ml FEU 10:56 PM ORDER PROCESSING SPECIALIST HOSPITAL Comment: This D-dimer assay is intended for use i n conjunction with a clinical pretest probability assessment model to exclude pulmonary embolism (PE) and deep venous thrombosis (DVT) in outpatients s uspected of PE or DVT. The cut-off value is 0.5 ug/mL FEU. Specimen Anatomical Collection Method Collection Time Receive d Time (Source) Location / / Volume Laterality 01/20/2018 10:36 01/20/2018 PM ORDER PROCESSING SPECIALIST 10:37 PM ORDER PROCESSING SPECIALIST Marycarmen Banks MD LAB - BLOOD ORDERABLES Performing Organization Address [facility] e Number [facility] [address] [place], [place] [address] [facility] [address] [place], [place] [address] [phone] Troponin I (01/20/2018 10:36 PM ORDER PROCESSING SPECIALIST) athologist Signature Troponin I ES <0.015 0.000 - 01/20/2018 [place] 0.045 ug/L 11:02 PM [facility] Comment: The 99th percentile for upper reference range is 0.045 ug/L. ??Troponin values in the range of 0.045 - 0.120 ug/L may b e associated with risks of adverse clinical events. Specimen Anatomical Collection Method Collection Time Receive d Time (Source) Location / / Volume Laterality Blood specimen 01/20/2018 10:36 8 (specimen) PM ORDER PROCESSING SPECIALIST 10:37 PM ORDER PROCESSING SPECIALIST Marycarmen Banks MD LAB - BLOOD ORDERABLES Performing Organization Address [facility] e Number [facility] [address] [place], [place] [address] [place] [address] [phone] (ABNORMAL) Comprehensive metabolic panel (01/20/2018 10:36 PM ORDER PROCESSING SPECIALIST) athologist Signature Sodium 136 133 - 144 01/20/2018 [place] mmol/L 11:02 PM [facility] Potassium 3.5 3.4 - 5.3 01/20/2018 [place] mmol/L 11:02 PM [facility] Chloride 102 94 - 109 01/20/2018 [place] mmol/L 11:02 PM [facility] Carbon Dioxide 28 20 - 32 01/20/2018 [place] mmol/L 11:02 PM [facility] Anion Gap 6 3 - 14 01/20/2018 [place] mmol/L 11:02 PM [facility] Glucose 103 (H) 70 - 99 01/20/2018 [place] mg/dL 11:02 PM [facility] Urea Nitrogen 7 7 - 30 01/20/2018 [place] mg/dL 11:02 PM [facility] Creatinine 0.76 0.52 - 01/20/2018 [facility] 1.[facility] mg/dL 11:02 PM [facility] GFR Estimate 86 >60 01/20/2018 [facility] mL/min/1.7 11:[address] Comment: Non GFR Calc GFR Estimate If >90 >60 mL/min/1.7m2 01/20/2018 11:02 PM [facility] Black [facility] Comment: GFR Calc Calcium 8.8 8.5 - 10.1 01/20/2018 11:02 PM [facility] mg/dL [facility] Bilirubin Total 1.5 (H) 0.2 - 1.3 mg/dL 01/20/2018 11:02 P M [facility] Albumin 3.9 3.4 - 5.0 g/dL 01/20/2018 11:02 PM [facility] Protein Total 8.3 6.8 - 8.8 g/dL 01/20/2018 11:02 PM [facility] Alkaline Phosphatase 129 40 - 150 U/L 01/20/2018 11:02 PM [facility] ALT 202 (H) 0 - 50 U/L 01/20/2018 11:02 PM [facility] AST 266 (H) 0 - 45 U/L 01/20/2018 11:02 PM [facility] Specimen Anatomical Collection Method Collection Time Receive d Time (Source) Location / / Volume Laterality Blood specimen 01/20/2018 10:36 8 (specimen) PM ORDER PROCESSING SPECIALIST 10:37 PM ORDER PROCESSING SPECIALIST Marycarmen Banks MD LAB - BLOOD ORDERABLES Performing Organization Address City/State/ZIP Code Phon e Number [place] [address] [address] [place], [place] [address] [facility] [address] [phone] (ABNORMAL) CBC with platelets differential (01/20/2018 10:36 PM ORDER PROCESSING SPECIALIST) [facility] Method Time Signature WBC 5.0 4.0 - 01/20/2018 [facility] 11.0 10:43 PM [facility] 10e9/L [facility] RBC Count 4.58 3.8 - 5.2 01/20/2018 [facility] 10e12/L 10:43 [facility] Hemoglobin 15.3 11.7 - 01/20/2018 [facility] 15.7 g/dL 10:43 [facility] Hematocrit 44.9 35.0 - 01/20/2018 [facility] 47.0 % 10:43 [facility] MCV 98 78 - 100 01/20/2018 [facility] fl 10:43 [facility] MCH 33.4 (H) 26.5 - 01/20/2018 [facility] 33.0 pg 10:43 [facility] MCHC 34.1 31.5 - 01/20/2018 [facility] 36.5 g/dL 10:43 [facility] RDW 11.8 10.0 - 01/20/2018 [facility] 15.0 % 10:43 [facility] Platelet Count 170 150 - 450 01/20/2018 [facility] 10e9/L 10:43 [facility] Diff Method Automated 01/20/2018 [facility] Method 10:43 [facility] % Neutrophils 61.7 % 01/20/2018 [facility] 10:43 [facility] % Lymphocytes 28.4 % 01/20/2018 [facility] 10:43 [facility] % Monocytes 7.1 % 01/20/2018 [facility] 10:43 [facility] % Eosinophils 2.2 % 01/20/2018 [facility] 10:43 [facility] % Basophils 0.4 % 01/20/2018 [facility] 10:43 [facility] % Immature 0.2 % 01/20/2018 [facility] Granulocytes 10:43 [facility] Nucleated RBCs 0 0 /100 01/20/2018 [facility] 10:43 [facility] Absolute 3.1 1.6 - 8.3 01/20/2018 [facility] Neutrophil 10e9/L 10:43 [facility] Absolute 1.4 0.8 - 5.3 01/20/2018 [facility] Lymphocytes 10e9/L 10:43 [facility] Absolute 0.4 0.0 - 1.3 01/20/2018 [facility] Monocytes 10e9/L 10:43 [facility] Absolute 0.1 0.0 - 0.7 01/20/2018 [place] Eosinophils 10e9/L 10:43 PM [facility] Absolute 0.0 0.0 - 0.2 01/20/2018 [place] Basophils 10e9/L 10:43 PM [facility] Abs Immature 0.0 0 - 0.4 01/20/2018 [place] Granulocytes 10e9/L 10:43 PM [facility] Absolute 0.0 01/20/2018 [place] Nucleated RBC 10:43 PM [facility] Specimen Anatomical Collection Method Collection Time Receive d Time (Source) Location / / Volume Laterality Blood specimen 01/20/2018 10:36 8 (specimen) PM ORDER PROCESSING SPECIALIST 10:37 PM ORDER PROCESSING SPECIALIST Marycarmen Banks MD LAB - BLOOD ORDERABLES Performing Organization Address City/State/ZIP Code Phon e Number [place] [address] [address] [place] [address] [place] [address] [phone] EKG 12-lead, tracing only (01/20/2018 10:18 PM ORDER PROCESSING SPECIALIST) [facility] gist Method Time Signature Interpretation ECG Click View RADIOLOGY Image link RESULTS to view waveform and result Specimen (Source) Anatomical Collection Method Collection Time Re ceived Time Location / / Volume Laterality 01/20/2018 10:18 PM ORDER PROCESSING SPECIALIST Marycarmen Banks MD ECG ORDERABLES Performing Organization Address City/State/ZIP [facility] Phon e Number RADIOLOGY RESULTS documented in this encounter Visit Diagnoses Diagnosis Alcohol withdrawal syndrome without comp lication (H) Anxiety Anxiety state, unspecified documented in this encounter Administered Medications Inactive Administered Medications - up to 3 most recent administrations Medication Order MAR Action Action Date Dose Rate Site 0.9% sodium chloride BOLUS New Bag 01/20/2018 11:03 PM 1,000 mLs 1000 mL/hr Intravenous, 1,000 mL, ORDER PROCESSING SPECIALIST ONCE, at 1,000 mL/hr, Administer over 1 Hours, On Fri01/20/18 at 2256, For 1 dose diphenhydrAMINE (BENADRYL) injection 25 mg Given 01/20/2018 11:36 PM ORDER PROCESSING SPECIALIST 25 mg 25 mg, Intravenous, ONCE, On Fri01/20/18 at 2330, For 1 dose, For ordered IV doses 1-50 mg, give IV Push undiluted. Give each 25mg over a minimum of 1 minute. Extend in non-emergency LORazepam (ATIVAN) injection 1 mg Given 01/20/2018 10:48 PM ORDER PROCESSING SPECIALIST 1 mg 1 mg, Intravenous, ONCE, On Fri01/20/18 at 2242, For 1 dose, For IV PUSH: Dilute with equal volume of NS. For ordered IV doses 0.1-4 mg give IV Push. Administer each 2mg over 1-5 minutes. multivitamin w/minerals (THERA-VIT-M) Given 01/20/2018 11:34 PM ORDER PROCESSING SPECIALIST 1 tablet tablet 1 tablet 1 tablet, Oral, ONCE, On Fri01/20/18 at 2330, For 1 dose ondansetron (ZOFRAN) injection 4 mg Given 01/20/2018 10:48 PM ORDER PROCESSING SPECIALIST 4 mg 4 mg, Intravenous, ONCE, Administer over 2-5 Minutes, On Fri01/20/18 at 2242, For 1 dose, Irritant. For ordered IV doses 0.1-4 mg, give IV Push undiluted over 2-5 minutes. prochlorperazine (COMPAZINE) injection 5 mg Given 01/20/2018 11:35 PM ORDER PROCESSING SPECIALIST 5 mg 5 mg, Intravenous, ONCE, Administer over 1-2 Minutes, On Fri01/20/18 at 2330, For 1 dose, For ordered IV doses 0.1-10 mg, give IV Push undiluted. Each 5mg over 1 minute. vitamin B1 (THIAMINE) tablet 100 mg Given 01/20/2018 11:35 PM ORDER PROCESSING SPECIALIST 100 mg 100 mg, Oral, ONCE, On Fri01/20/18 at 2330, For 1 dose documented in this encounter Active and Recently Administered Medications Times are shown in ORDER PROCESSING SPECIALIST. Scheduled Medication Order 01/19/2018 01/20/2018 01/21/2018 0.9% sodium chloride BOLUS (COMPLETED) 2 303 (New Bag - Provider: Anali Castro, GENARO) 0021 (Stopped - Provider: Emely Chicas RN) Intravenous, 1,000 mL, ONCE, at 1,000 mL /hr, Administer over 1 Hours, On e 01/20/18 at 2256, For 1 dose diphenhydrAMINE (BENADRYL) injection 25 mg (COMPLETED) 2335 (Given - Provider: Anali Castro RN) 25 mg, Intravenous, ONCE, On Fri01/20/18 at 2330, For 1 dose, For ordered IV doses 1-50 mg, give IV Push undiluted. Give each 25mg over a minimum of 1 minute. Extend in non-emergency LORazepam (ATIVAN) injection 1 mg (COMPLETED) 2247 (Given - Provider: Anali Castro RN) 1 mg, Intravenous, ONCE, e 01/20/18 at 2242, For 1 dose, For IV PUSH: Dilute with equal volume of NS. For ordered IV doses 0.1-4 mg give IV Push. Administer each 2mg over 1-5 minutes. multivitamin w/minerals (THERA-VIT-M) tablet 1 tablet (COMPL ETED) 2333 (Given - Provider: Anali Castro RN) 1 tablet, Oral, ONCE, On Fri01/20/18 at 2330, For 1 dose ondansetron (ZOFRAN) injection 4 mg (COMPLETED) 2247 (Given - Provider: nAali Castro RN) 4 mg, Intravenous, ONCE, Administer over 2-5 Minutes, e 01/20/18 at 2242, For 1 dose, Irritant. For ordered IV doses 0.1-4 mg, give IV Push undiluted over 2-5 minutes. prochlorperazine (COMPAZINE) injection 5 mg (COMPLETED) 2334 (Given - Provider: Anali Castro RN) 5 mg, Intravenous, ONCE, Administer over 1-2 Minutes, On Fri01/20/18 at 2330, For 1 dose, For ordered IV doses 0.1-10 mg, give IV Push undiluted. Each 5mg over 1 minute. vitamin B1 (THIAMINE) tablet 100 mg (COMPLETED) 2334 (Given - Provider: Anali Castro RN) 100 mg, Oral, ONCE, On Fri01/20/18 at 2330, For 1 dose documented in this encounter Care Teams Take Away Man Relationship Specialty Start Date End Date [facility], [facility] PCP - General 01/20/18 06/28/[address] [place] [id number] documented as of this encounter
--- OUTSIDE RECORDS SUMMARY | 2021-11-10 00:40 | XMS_ITS | Encounter Summary ---
:1980 Author Organization [facility] Address [address] [place] [address]. [place] [address] Care Team Providers Name Role Phone Clinic, [facility] Primary Care Provide r Reason for Visit Reason Comments Musculoskeletal Problem Patient was working out 4 da ys ago, pain getting worse, patient in treatment [facility]. PShe has taking tylenol & ibuprofen x 4 days with mi nimal relief. Encounter Details Date Type Department Care Team Description 07/19/2018 Emergency [facility] Ronnie Shook MD [address] [place] [id number] Left knee pain, Emergency Department Jan Lemons MD [address] [place] [id number] unspecified chronicity [address] [place] [phone] Social History Tobacco Use Types Packs/Day Years Used Date Current Every Day Smoker Cigarettes 0.25 10 Smokeless Tobacco: Never Used Tobacco Cessation: Ready to Quit: No; Co unseling Given: Yes Comments: 5-8 cigarettes a day Alcohol Use [...] at Date Recorded 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 documented as of 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 encounter Last Filed Vital Signs Vital Sign Reading Time Taken Comments Blood Pressure 119/80 07/19/2018 11:50 AM CDT Pulse 73 07/19/2018 11:50 AM CDT Temperature 36.5 ??C (97.7 ??F) 07/19/2018 11:50 AM CDT Respiratory Rate 18 07/19/2018 11:50 AM CDT Oxygen Saturation 97% 07/19/2018 11:50 AM CDT Inhaled Oxygen Concentration - - Weight 87.5 kg (193 lb) 07/19/2018 9:59 AM CDT Height - - Body Mass Index 31.15 07/04/2018 9:43 PM CDT documented in this encounter Discharge Instructions Discharge InstructionsJona Shook MD - 07/19/2018 11:09 AM CDT Please make an appointment to follow up with Orthopedics (phone: ) as soon as possible unless symptoms completely resolve. AttachmentsThe following attachments cannot be sent through Care Everywhere.Knee Pain of Uncertain Cause (Guyanese)documented in this encounter Medications at Time of Discharge Medication Sig Dispensed Refills Start Date End Date naproxen (NAPROSYN) 500 Take 1 tablet (500 mg) 24 tablet 0 07/19/2018 07/27/2018 MG tablet by mouth 2 times daily (with meals) for 8 days acetaminophen (TYLENOL) Take 325-650 mg by 0 07/25/2018 325 MG tablet mouth every 4 hours as needed for mild pain alum & mag Take 30 mLs by mouth 0 09/2018 hydroxide-simethicone every 6 hours as (MYLANTA/MAALOX) needed for indigestion 200-200-20 MG/5ML SUSP suspension bacitracin 500 UNIT/GM Apply topically 2 14 g 0 201807/28/2018 OINTIndications: times daily Alcohol abuse, continuous buprenorphine Place 1 Film under the 7 Film 0 07/07/2018 01/20/2019 HCl-naloxone HCl tongue daily (SUBOXONE) 8-2 MG per filmIndications: Alcohol abuse, continuous buPROPion (WELLBUTRIN Take 150 mg by mouth 2 0 04/04/2019 SR) 150 MG 12 hr tablet times daily guaiFENesin Take 10 mLs by mouth 0 09/2018 (ROBITUSSIN) 20 mg/mL every 4 hours as SOLN solution needed for cough hydrOXYzine (ATARAX) 25 Take 1 tablet (25 mg) 30 tablet 1 0 07/07/2018 01/07/2020 MG tabletIndications: by mouth every 4 hours Alcohol abuse, as needed for anxiety continuous levothyroxine Take 1 tablet (125 30 tablet 0 07/08/201805/2018 (SYNTHROID/LEVOTHROID) mcg) by mouth every 125 MCG morning (before tabletIndications: breakfast) Alcohol abuse, continuous loratadine (CLARITIN) Take 10 mg by mouth 0 07/25/2018 10 MG tablet daily as needed for allergies melatonin 3 MG tablet Take 3 mg by mouth 0 07/25/2018 nightly as needed for sleep multivitamin w/minerals Take 1 tablet by mouth 30 each 0 07/08/2018 01/07/2020 (THERA-VIT-M) daily tabletIndications: Alcohol abuse, continuous nicotine (NICORETTE) 2 Place 1 each (2 mg) 40 tablet 1 06/1801/07/2020 MG gumIndications: inside cheek every 2 Alcohol abuse, hours as needed for continuous smoking cessation phenol-menthol Place 1 lozenge inside 0 07/25/2018 (CEPASTAT) 14.5 MG cheek every 2 hours as lozenge needed for moderate pain senna-docusate Take 2 tablets by 0 09/2018 (SENOKOT-S/PERICOLACE) mouth daily as needed 8.6-50 MG tablet for constipation traZODone (DESYREL) 50 Take 1 tablet (50 mg) 30 tablet 1 01/20/2019 MG tabletIndications: by mouth nightly as Alcohol abuse, needed for sleep continuous triamcinolone (KENALOG) Apply topically 2 15 g 0 07/0707/24/2018 0.1 % external times daily as needed creamIndications: for irritation Alcohol abuse, continuous venlafaxine Take 1 tablet (75 mg) 30 tablet 0 07/08/2018 (EFFEXOR-ER) 75 MG 24 by mouth daily (with hr tabletIndications: breakfast) Alcohol abuse, continuous vitamin B1 (THIAMINE) Take 1 tablet (100 mg) 30 tablet 0 01/14/2020 100 MG by mouth daily tabletIndications: Alcohol abuse, continuous vitamin D3 2000 units Take 2,000 Units by 30 tablet 0 07/0801/14/2020 tabletIndications: mouth daily Alcohol abuse, continuous documented as of this encounter ED Notes Jona Shook MD - 07/19/2018 9:49 AM CDT History Chief Complaint Patient presents with ??? Musculoskeletal Problem Patient was working out 4 days ago, pain getting worse, patient in treatment at for ETOH. PShe has taking tylenol & ibuprofen x 4 days with minimal relief. HPI Stephani Kign is a 37 year old female with a history of anxiety, depression, chronic hepatitis C, and alcohol abuse who presents for evaluation of left knee pain. Of note, patient is in treatment at [facility] for alcohol abuse. She reports she's had pain in her left knee for the past 4 days, around the same time she began working out at the [facility] gym. Patient denies any specific injury toher knee; she states she's been using the elliptical and bike as exercise. Patient reports her pain runs along the front of her knee and is worse when the knee is bent. However, she also feels a strain in the back of her knee and an overall throbbing sensation. Patient states she's been taking Tyle nol q4h and ibuprofen q6h for the past 4 days. She states she's had issues with her knees in the past, in my 20s, but is unsure what had causedthose issues. Past Medical History: Diagnosis Date ??? Anxiety ??? Chronic hepatitis C (H) ??? Depressive disorder ??? Hypothyroid ??? Suboxone maintenance treatment complicating , antepartum (H) ??? Substance abuse (H) Past Surgical History: Procedure Laterality Date ??? BREAST SURGERY ABcess drained ??? SECTION ??? SECTION, IMMEDIATE HYSTERECTOMY, COMBINED N/A 12/24/2016 Procedure: COMBINED SECTION, IMMEDIATE HYSTERECTOMY; Section Immediate Hysterectomy, Bilateral Salpingectomy and Cystoscopy. Baby Boy born at 20:05; Surgeon: So Luciano MD; Location: [facility] OR ??? 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 ORTHOPEDIC SURGERY ??? THORACIC SURGERY Family History Problem Relation Age of Onset ??? Depression Mother ??? Psychotic Disorder Mother ??? Thyroid Disease Mother ??? Cerebrovascular Disease Father ??? Myocardial Infarction Father ??? Cancer Maternal Grandfather ??? Depression Brother ??? Depression Brother ??? Asthma Son Social History Tobacco Use ??? Smoking status: Current Every Day Smoker Packs/day: 0.25 Years: 10.00 Pack years: 2.50 Types: Cigarettes ??? Smokeless tobacco: Never Used ??? Tobacco comment: 5-8 cigarettes a day Substance Use Topics ??? Alcohol use: Not Currently Comment: sober 16 days No current facility-administered medications for this encounter. Current Outpatient Medications Medication ??? acetaminophen (TYLENOL) 325 MG tablet ??? bacitracin 500 UNIT/GM OINT ??? buprenorphine HCl-naloxone HCl (SUBOXONE) 8-2 MG per film ??? buPROPion (WELLBUTRIN SR) 150 MG 12 hr tablet ??? hydrOXYzine (ATARAX) 25 MG tablet ??? levothyroxine (SYNTHROID/LEVOTHROID) 125 MCG tablet ??? loratadine (CLARITIN) 10 MG tablet ??? melatonin 3 MG tablet ??? multivitamin w/minerals (THERA-VIT-M) tablet ??? naproxen (NAPROSYN) 500 MG tablet ??? nicotine (NICORETTE) 2 MG gum ??? phenol-menthol (CEPASTAT) 14.5 MG lozenge ??? senna-docusate (SENOKOT-S/PERICOLACE) 8.6-50 MG tablet ??? traZODone (DESYREL) 50 MG tablet ??? triamcinolone (KENALOG) 0.1 % external cream ??? venlafaxine (EFFEXOR-ER) 75 MG 24 hr tablet ??? vitamin B1 (THIAMINE) 100 MG tablet ??? vitamin D3 2000 units tablet ? ? alum & mag hydroxide-simethicone (MYLANTA/MAALOX) 200-200-20 MG/5ML SUSP suspension ??? guaiFENesin (ROBITUSSIN) 20 mg/mL SOLN solution No Known Allergies I have reviewed the Medications, Allergies, Past Medical and Surgical History, and Social History inthe Epic system. Review of Systems Constitutional: Negative for fever. HENT: Negative for congestion. Eyes: Negative for redness. Respiratory: Negative for shortness of breath. Cardiovascular: Negative for chest pain. Gastrointestinal: Negative for abdominal pain. Genitourinary: Negative for difficulty urinating. Musculoskeletal: Negative for arthralgias and neck stiffness. Positive for left knee pain Skin: Negative for color change. Neurological: Negative for headaches. Psychiatric/Behavioral: Negative for confusion. All other systems reviewed and are negative. Physical Exam BP: 117/70 Pulse: 79 Temp: 96.3 ??F (35.7 ??C) Resp: 16 Weight: 87.5 kg (193 lb) SpO2: 98 % Physical Exam Constitutional: No distress. HENT: Head: Atraumatic. Mouth/Throat: Oropharynx is clear and moist. No oropharyngeal exudate. Eyes: Pupils are equal, round, and reactive to light. No scleral icterus. Cardiovascular: Normal heart sounds and intact distal pulses. Pulmonary/Chest: Breath sounds normal. No respiratory distress. Abdominal: Soft. Bowel sounds are normal. There is no tenderness. Musculoskeletal: She exhibits no edema. Left knee: She exhibits normal range of motion, no swelling, no effusion, no ecchymosis, no deformity, no laceration, no erythema, normal alignment, no LCL laxity and normal patellar mobility. Tenderness found. Patellar tendon tenderness noted. Skin: Skin is warm. No rash noted. She is not diaphoretic. ED Course Procedures Labs Ordered and Resulted from Time of ED Arrival Up to the Time of Departure from the ED - No data to display Assessments & Plan (with Medical Decision Making) 37-year-old female presents for evaluation of 4-day history of left knee pain. This occurs in the setting of chronic knee pain dating back almost 20 years. Exam reveals tenderness over her patellar tendon. Differential included chondromalacia, patellar tendinitis, occult injury. X-ray of the left knee revealed no evidence of fracture or dislocation. Patient was treated with IM Toradol. Patient will be discharged using combination Tylenol and naproxen. I have recommended follow-up with an orthopedistfor further evaluation and management of presumed patellar tendinitis. I have reviewed the nursing notes. I have reviewed the findings, diagnosis, plan and need for follow up with the patient. Medication List Started naproxen 500 MG tablet Commonly known as: NAPROSYN 500 mg, Oral, 2 TIMES DAILY WITH MEALS Discontinued ibuprofen 200 MG tablet Commonly known as: ADVIL/MOTRIN Final diagnoses: Left knee pain, unspecified chronicity IEl, am serving as a trained medical coding auditor to document services personally performed by Donnell Shook MD, based on the provider's statements to me. IDonnell MD, was physically present and have reviewed and verified the accuracy of this note documented by [place]. 07/19/2018 [facility] EMERGENCY DEPARTMENT Jona Shook MD 07/19/18 1147 documented in this encounter Plan of Treatment Upcoming Encounters Date Type Specialty Care Team Description 11/15/2021 Office Visit Wound Care Luis Camara, [facility] [address] [place] [address] (Wo rk) documented as of this encounter Procedures Procedure Name Priority Date/Time Associated Diagnosis Comme nts XR KNEE LEFT 1/2 STAT 07/19/2018 11:12 AM Resu lts for this VIEWS CDT procedure are i n the results section. documented in this encounter Results XR Knee Left 1/2 Views (07/19/2018 11:12 AM CDT) Anatomical Region Laterality Modality Thigh, Knee, Leg Left Computed Radiography Specimen (Source) Anatomical Location Collection Method / Collectio n Time Received Time / Laterality Volume Impressions 07/19/2018 2:39 PM CDT IMPRESSION: No acute fracture or dislocation. Anatomic alignment. IRA JORDAN MD Narrative 07/19/2018 2:39 PM CDT LEFT KNEE ONE OR TWO VIEWS ??07/19/2018 11:12 AM HISTORY: Suprapatellar pain. COMPARISON: Left knee 08/30/2006. Procedure Note Ira Jordan MD - 07/19/2018Forma tting of this note might be different from the original. LEFT KNEE ONE OR TWO VIEWS 07/19/2018 11:1 2 AM HISTORY: Suprapatellar pain. COMPARISON: Left knee 08/30/2006. IMPRESSION: No acute fracture or disloca tion. Anatomic alignment. IRA JORDAN MD Jona Shook MD IMG DIAGNOSTIC IMAGING ORDER JEFFERY documented in this encounter Visit Diagnoses Diagnosis Left knee pain, unspecified chronicity documented in this encounter Administered Medications Inactive Administered Medications - up to 3 most recent administrations Medication Order MAR Action Action Date Dose Rate Site ketorolac (TORADOL) injection 30 Given 07/19/2018 11:25 AM CDT 3 0 mg mg 30 mg, Intramuscular, ONCE, On 07/19/18 at 1121, For 1 dose, Can cause pain on injection. If ordered intravenously (IV) : administer through a running maintenance fluid over 1 minute followed by a flush. If patient complains of pain on injection, may dilute 15-30 mg in 5 mL and push over 1 to 2 minutes. documented in this encounter Active and Recently Administered Medications Times are shown in CDT. Scheduled Medication Order 07/17/2018 07/18/2018 07/19/2018 ketorolac (TORADOL) injection 30 mg (COMPLETED) 1125 (Given - Provider: Gauri Euceda RN) 30 mg, Intramuscular, ONCE, 07/19/18 a t 1121, For 1 dose, Can cause pain on injection. If ordered intravenously (IV) : administer through a running maintenance fluid over 1 minute followed by a flush. If patient complains of pain on injecti on, may dilute 15-30 mg in 5 mL and push over 1 to 2 minutes. documented in this encounter Additional Health Concerns Assessment Noted Time PHQ-9 Depression Total Score: 10 07/08/2018 1:27 PM CD T documented as of this encounter Care Teams Container Filler Relationship Specialty Start Date End Date [facility], [facility] PCP - General 01/20/18 06/28/[address] [place] [id number] documented as of this encounter
--- OUTSIDE RECORDS SUMMARY | 2021-11-10 00:40 | XMS_ITS | Encounter Summary ---
:1980 Author Organization [facility] Address [address] [place] [address]. [place] [address] Care Team Providers Name Role Phone Clinic, [facility] Primary Care Provide r Reason for Visit Reason Comments Alcohol Intoxication Encounter Details Date Type Department Care Team Description 05/23/2018 Emergency [facility] Silke Muñiz Alcoholic intoxication without complication (H); [facility] Emergency Dep t MD Margot Elevated AST (SGOT); [address] Elevated ALT measurement [place], [place] [phone] Social History Tobacco Use Types Packs/Day Years [...] at Date Recorded 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 documented as of this encounter Last Filed Vital Signs Vital Sign Reading Time Taken Comments Blood Pressure 132/81 05/23/2018 6:45 PM CDT Pulse 90 05/23/2018 6:45 PM CDT Temperature 36.5 ??C (97.7 ??F) 05/23/2018 3:18 PM CDT Respiratory Rate 20 05/23/2018 3:18 PM CDT Oxygen Saturation 96% 05/23/2018 6:45 PM CDT Inhaled Oxygen Concentration - - Weight 83.9 kg (185 lb) 05/23/2018 3:18 PM CDT Height 167.6 cm (5' 6) 05/23/2018 3:18 PM CDT Body Mass Index 29.86 05/23/2018 3:18 PM CDT documented in this encounter Discharge Instructions Discharge InstructionsSilke Muñiz MD - 05/23/2018 6:16 PM CDT Use zofran for nausea Use librium for alcohol withdrawal symptoms. Don't drink alcohol while taking it Discharge Instructions Alcohol Intoxication You have been seen today with alcohol intoxication. This means that you have enough alcohol in your system to impair your ability to mentally and physically function, perhaps to the extent that you were unable to care for yourself. Generally, every Emergency Department visit should have a follow-up clinic visit with either a primary or a specialty clinic/provider. Please follow-up as instructed by your emergency provider today. You may have come to the Emergency Department because of your intoxication, or for another reason, such as because of an injury. No matter what the case is, this visit is a ?red flag? regarding alcoholuse, and you should consider whether your drinking pattern is a problem for you. You may be at risk for alcohol-related problems if: Men: you drink more than 14 drinks per week, or more than 4 drinks per occasion. Women: you drink more than 7 drinks per week or more than 3 drinks per occasion. You have black-outs. You do things you regret while drinking. You have legal problems because of drinking. You have job problems because of drinking (you call in sick to work because of drinking). CAGE Questions Have you ever felt you should cut down on your drinking? Have people annoyed you by criticizing your drinking? Have you ever felt bad or guilty about your drinking? 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 If you answer yes to any of the CAGE questions, you may have a problem with alcohol. Return to the Emergency Department if: You become shaky or tremble when you try to stop drinking. You have severe abdominal pain (belly pain). You have a seizure or pass out. You vomit (throw up) blood or have blood in your stool. This may be bright red or it may look like black coffee grounds. You become lightheaded or faint. For further help, contact: Your caregiver. Alcoholics Anonymous (AA). [facility] Intergroup: [phone] [facility] Central Office: [phone] A drug or alcohol rehabilitation program. You can get information on alcohol resources and groups by calling the number [phone] or on any phone. Seek medical care if: You have persistent vomiting. You have persistent pain in any part of your body. You do not feel better after a few days. If you were given a prescription for medicine here today, be sure to read all of the information (including the package insert) that comes with your prescription. This will include important information about the medicine, its side effects, and any warnings that you need to know about. The pharmacist who fills the prescription can provide more information and answer questions you may have about the medicine. If you have questions or concerns that the pharmacist cannot address, please call or return to the Emergency Department. Remember that you can always come back to the Emergency Department if you are not able to see your regular doctor in the amount of time listed above, if you get any new symptoms, or if there is anything that worries you. documented in this encounter Medications at Time [...] every morning chlordiazePOXIDE Take 1 capsule (25 12 capsule 0 05/23/2018 07/07/2018 (LIBRIUM) 25 MG capsule mg) by mouth 3 times daily as needed for anxiety chlordiazePOXIDE Take 1 capsule (25 10 capsule [...] Take 1 tablet (4 10 tablet 0 05/2307/07/2018 4 MG ODT tab mg) by mouth every 8 hours as needed ondansetron (ZOFRAN ODT) Take 1 tablet (4 [...] documented as of this encounter ED Notes Leydi Steven RN - 05/23/2018 6:09 PM CDT Pt called her dad to come pick her up. Leydi Steven RN - 05/23/2018 3:18 PM CDT A&Ox4. ABC's intact. Pt arrives with ETOH withdrawal. States last drink was this morning. Drinksabout 1/2 L of vodka/day. Hx of opiate dependency. On Suboxone at this time. Hx of depression, anxiety and deaths of children in the past (SIDS, heart defect, and spontaneous ). Denies pain at this time. So Martin RN - 05/23/2018 3:15 PM CDT Bed: ED27 Expected date: 05/23/18 Expected time: Means of arrival: Comments: ETOH Silke Muñiz MD - 05/23/2018 3:15 PM CDT History Chief Complaint: Alcohol Intoxication The history is provided by the patient. Stephani King is a 37 year old female who presents to the emergency department for evaluation of Alcohol Intoxication. To note, the patient has a history of alcohol abuse and has seen her doctor about her alcohol consumption and they are trying to get the patient to stop drinking. Today, the patientpresents here after her mother called the ambulance because the patient was not feeling well and was acting differently, notably the patient is complaining of her head feeling funny as well as several months of abdominal bloating. These have been going on for 1 year. She has a history of withdrawal and withdrawal seizures. She states she would like to be admitted to the hospital but states she cannot go to detox because she has to watch her kids. 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 Positive for drug use: Suboxone Marital Status: Review of Systems Gastrointestinal: Positive for abdominal distention. Neurological: Positive for headaches. Psychiatric/Behavioral: Positive for alcohol intoxication All other systems reviewed and are negative. Physical Exam Patient Vitals for the past 24 hrs: BP Temp Temp src Pulse Heart Rate Resp SpO2 Height Weight 05/23/18 1745 129/86 -- -- 91 -- -- 95 % -- -- 05/23/18 1730 121/81 -- -- 84 -- -- 94 % -- -- 05/23/18 1715 130/78 -- -- 83 -- -- 92 % -- -- 05/23/18 1700 -- -- -- 91 -- -- 95 % -- -- 05/23/18 1645 (!) 130/95 -- -- 86 -- -- 95 % -- -- 05/23/18 1630 123/74 -- -- 85 -- -- 93 % -- -- 05/23/18 1615 133/61 -- -- 88 -- -- 96 % -- -- 05/23/18 1600 122/80 -- -- 79 -- -- 95 % -- -- 05/23/18 1545 (!) 137/99 -- -- 88 -- -- 96 % -- -- 05/23/18 1526 160/88 -- -- -- -- -- -- -- -- 05/23/18 1518 -- 97.7 ??F (36.5 ??C) Oral -- 94 20 95 % 1.676 m (5' 6) 83.9 kg (185 lb) Physical Exam General: Resting comfortably on the gurney Eyes: The pupils are equal and round Conjunctivae and sclerae are normal ENT: No head trauma Neck: Normal range of motion CV: Regular rate and rhythm Skin warm and well perfused Resp: Lungs are clear Non-labored No rales No wheezing GI: Abdomen is soft, there is no rigidity No distension No rebound tenderness No abdominal tenderness MS: Normal muscular tone Skin: No rash or acute skin lesions noted Neuro: Awake, alert. Speech is normal and fluent. Face is symmetric. Moves all extremities equally SILT on bilateral UE/LE Psych: Normal affect. Appropriate interactions. Emergency Department Course Laboratory: Alcohol ethyl: 0.17 (H) CBC: WBC: 3.3 (L), HGB: 13.5, PLT: 150 CMP: Glucose 106 (H), ALT 164 (H), AST 251 (H), o/w WNL (Creatinine: 0.64) Lipase: 172 UA with micro: bacteria few, mucous present o/w negative Interventions: 1721 Zofran, 4 mg, IV injection 1800 Ativan 2 mg tablet PO Emergency Department Course: 1610 Nursing notes and vitals reviewed. I performed an exam of the patient as documented above. IV inserted. Medicine administered as documented above. Blood drawn. This was sent to the lab for further testing, results above. The patient provided a urine sample here in the emergency department. This was sent for laboratory testing, findings above. 1730 I rechecked the patient and discussed the results of her workup thus far. Findings and plan explained to the Patient. Patient discharged home with instructions regarding supportive care, medications, and reasons to return. The importance of close follow-up was reviewed. The patient was prescribed Librium and Zofran. I personally reviewed the laboratory results with the Patient and answered all related questions prior to discharge. Impression & Plan Medical Decision Making: Stephani King is a 37 year old female who presents for evaluation of alcohol abuse. She is intoxicated here in ED by blood work. Blood work otherwise looks ok; no signs of alcoholic ketoacidosis. Patient has chronic elevation of her AST/ALT. No evidence of withdrawal on arrival to ED. Neurovascularly intact. There are no signs of co-ingestion including acetaminophen, drugs, medications, volatile alcohols. She has no signs of trauma related to alcohol use and no further workup is needed including head CT. Wants to be admitted but does not want detox. No indication for admission to hospital. Later in ED course says she feels anxious, nauseous. May have mild withdrawal but continues to decline detox . Will send home with librium for possible mild withdrawal. Sober ride obtained. Alcohol counseling provided by myself and patient does not want treatment resources. Diagnosis: ICD-10-CM 1. Alcoholic intoxication without complication (H) F10.920 2. Elevated AST (SGOT) R74.0 3. Elevated ALT measurement R74.0 Disposition: discharged to home Discharge Medications: Medication List Started * chlordiazePOXIDE 25 MG capsule Commonly known as: LIBRIUM 25 mg, Oral, 3 TIMES DAILY PRN * ondansetron 4 MG ODT tab Commonly known as: ZOFRAN ODT 4 mg, Oral, EVERY 8 HOURS PRN Scribe Disclosure: I, Areli Morejon, am serving as a scribe on 05/23/2018 at 4:21 PM to personally document services performed by Silke Muñiz MD based on my observations and the provider's statements to me. Areli Morejon 05/23/2018 [facility] EMERGENCY DEPARTMENT Silke Muñiz MD 05/23/18 1830 documented in this encounter Plan of Treatment Upcoming Encounters Date Type Specialty Care Team Description 11/15/2021 Office Visit Wound Care Luis Camara, [place] [address] [place] [address] [phone] (Wo rk) documented as of this encounter Procedures Procedure Name Priority Date/Time Associated Comments Diagnosis ROUTINE UA WITH STAT 05/23/2018 5:11 PM Result s for this MICROSCOPIC CDT procedure are i n the results section. CBC WITH PLATELETS & STAT 05/23/2018 3:34 PM R esults for this DIFFERENTIAL CDT procedure are i n the results section. LIPASE Routine 05/23/2018 3:34 PM Results f or this CDT procedure are i n the results section. COMPREHENSIVE STAT 05/23/2018 3:34 PM Results for this METABOLIC PANEL CDT procedure ar e in the results section. ETHYL ALCOHOL LEVEL STAT 05/23/2018 3:34 PM Re sults for this CDT procedure are i n the results section. documented in this encounter Results (ABNORMAL) UA with Microscopic (05/23/2018 5:11 PM CDT) [facility] Method Time Signature Color Urine Light Yellow 05/23/2018 [facility] 5:22 PM [facility] Appearance Urine Clear 05/23/2018 [facility] 5:22 PM [facility] Glucose Urine Negative NEG^Negat 05/23/2018 [facility] paula mg/dL 5:22 PM [facility] Bilirubin Urine Negative NEG^Negat 05/23/2018 [facility] paula 5:22 PM [facility] Ketones Urine Negative NEG^Negat 05/23/2018 [facility] paula mg/dL 5:22 PM [facility] Specific [place] 1.009 1.003 - 05/23/2018 [facility] Urine 1.035 5:22 PM [facility] Blood Urine Negative NEG^Negat 05/23/2018 [facility] paula 5:22 PM [facility] pH Urine 6.0 5.0 - 7.0 05/23/2018 [facility] pH 5:22 PM [facility] Protein Albumin Negative NEG^Negat 05/23/2018 [facility] Urine paula mg/dL 5:22 PM [facility] Urobilinogen Normal 0.0 - 2.0 05/23/2018 [facility] mg/dL mg/dL 5:22 PM [facility] Nitrite Urine Negative NEG^Negat 05/23/2018 [facility] paula 5:22 PM [facility] Leukocyte Negative NEG^Negat 05/23/2018 [facility] Esterase Urine paula 5:22 PM [facility] Source Midstream 05/23/2018 [facility] Urine 5:11 PM [facility] WBC Urine <1 0 - 5 05/23/2018 [facility] /HPF 5:22 PM [facility] RBC Urine <1 0 - 2 05/23/2018 [facility] /HPF 5:22 PM [facility] Bacteria Urine Few (A) NEG^Negat 05/23/2018 [facility] paula /HPF 5:22 PM [facility] Squamous 1 0 - 1 05/23/2018 [facility] Epithelial /HPF /HPF 5:22 PM [facility] Mucous Urine Present (A) NEG^Negat 05/23/2018 [place] paula /LPF 5:22 PM [facility] Specimen (Source) Anatomical Collection Method Collection Time Re ceived Time Location / / Volume Laterality Examination of 05/23/2018 5:11 05/23/2018 5:18 midstream urine PM CDT PM CDT specimen (procedure) Silke Muñiz MD LAB - URINE ORDERABLES Performing Organization Address City/State/ZIP Code Phon e Number [facility] [address] [place], [place] [address] [facility] [address] [address], [facility] [phone] Lipase (05/23/2018 3:34 PM CDT) athologist Signature Lipase 172 73 - 393 05/23/2018 [facility] U/L 4:25 PM [facility] Specimen Anatomical Collection Method Collection Time Receive d Time (Source) Location / / Volume Laterality 05/23/2018 3:34 PM 9 3:39 CDT PM CDT Sandra Moreno MD LAB - BLOOD ORDERABLES Performing Organization Address City/[facility]/ZIP [facility] [place]on [place] Number [facility] [address] [place], [place] [address] [facility] [address] [address], [facility] [phone] (ABNORMAL) Comprehensive metabolic panel (05/23/2018 3:34 PM CDT) P athologist Signature Sodium 139 133 - 144 05/23/2018 [place] mmol/L 3:51 PM [facility] Potassium 3.5 3.4 - 5.3 05/23/2018 [place] mmol/L 3:51 PM [facility] Chloride 106 94 - 109 05/23/2018 [place] mmol/L 3:51 PM [facility] Carbon Dioxide 27 20 - 32 05/23/2018 [place] mmol/L 3:56 PM [facility] Anion Gap 6 3 - 14 05/23/2018 [place] mmol/L 3:56 PM [facility] Glucose 106 (H) 70 - 99 05/23/2018 [facility] mg/dL 3:56 PM [facility] Urea Nitrogen 7 7 - 30 05/23/2018 [facility] mg/dL 3:56 PM [facility] Creatinine 0.64 0.52 - 05/23/2018 [facility] 1.04 mg/dL 3:56 PM [facility] GFR Estimate >90 >60 05/23/2018 [place] mL/min/{1. 3:56 PM [facility] 73_m2} HOSPITAL Comment: Non GFR Calc Starting 02/03/2018, serum creatinine ba sed estimated GFR (eGFR) will be calculated using the Chronic Kidney Dise banner Epidemiology Collaboration (CKD-EPI) equation. GFR Estimate If >90 >60 mL/min/{1.73_m2} 05/23/2018 3: 56 PM [facility] Comment: GFR Calc Starting 02/03/2018, serum creatinine ba sed estimated GFR (eGFR) will be calculated using the Chronic Kidney Dise banner Epidemiology Collaboration (CKD-EPI) equation. Calcium 8.6 8.5 - 10.1 05/23/2018 3:56 PM [facility] mg/dL [facility] Bilirubin Total 0.7 0.2 - 1.3 mg/dL 05/23/2018 3:59 PM [facility] Albumin 3.6 3.4 - 5.0 g/dL 05/23/2018 3:59 PM [facility] Protein Total 7.9 6.8 - 8.8 g/dL 05/23/2018 3:59 PM [facility] Alkaline Phosphatase 126 40 - 150 U/L 05/23/2018 3:59 PM [facility] ALT 164 (H) 0 - 50 U/L 05/23/2018 3:59 PM [facility] AST 251 (H) 0 - 45 U/L 05/23/2018 3:59 PM [facility] Specimen Anatomical Collection Method Collection Time Receive d Time (Source) Location / / Volume Laterality Blood specimen 05/23/2018 3:34 PM 04/06/2 019 3:39 (specimen) CDT PM CDT Silke Muñiz MD LAB - BLOOD ORDERABLES Performing Organization Address City/State/ZIP Code Phon e Number [facility] [address] [place], [place] [address] [facility] [address] [place], [place] [address] [facility] [phone] (ABNORMAL) CBC with platelets differential (05/23/2018 3:34 PM CDT) [facility] Method Time Signature WBC 3.3 (L) 4.0 - 05/23/2018 [facility] 11.0 3:42 PM [facility] 10e9/L [facility] RBC Count 4.13 3.8 - 5.2 05/23/2018 [facility] 10e12/L 3:42 PM [facility] Hemoglobin 13.5 11.7 - 05/23/2018 [facility] 15.7 g/dL 3:42 PM [facility] Hematocrit 39.9 35.0 - 05/23/2018 [facility] 47.0 % 3:42 PM [facility] MCV 97 78 - 100 05/23/2018 [facility] fl 3:42 PM [facility] MCH 32.7 26.5 - 05/23/2018 [facility] 33.0 pg 3:42 PM [facility] MCHC 33.8 31.5 - 05/23/2018 [facility] 36.5 g/dL 3:42 PM [facility] RDW 13.2 10.0 - 05/23/2018 [facility] 15.0 % 3:42 PM [facility] Platelet Count 150 150 - 450 05/23/2018 [facility] 10e9/L 3:42 PM [facility] Diff Method Automated 05/23/2018 [facility] Method 3:42 PM [facility] % Neutrophils 41.0 % 05/23/2018 [facility] 3:42 PM [facility] % Lymphocytes 43.6 % 05/23/2018 [facility] 3:42 PM [facility] % Monocytes 9.7 % 05/23/2018 [facility] 3:42 PM [facility] % Eosinophils 4.8 % 05/23/2018 [facility] 3:42 PM [facility] % Basophils 0.6 % 05/23/2018 [facility] 3:42 PM [facility] % Immature 0.3 % 05/23/2018 [facility] Granulocytes 3:42 PM [facility] Nucleated RBCs 0 0 /100 05/23/2018 [facility] 3:42 PM [facility] Absolute 1.4 (L) 1.6 - 8.3 05/23/2018 [facility] Neutrophil 10e9/L 3:42 PM [facility] Absolute 1.4 0.8 - 5.3 05/23/2018 [facility] Lymphocytes 10e9/L 3:42 PM [facility] Absolute 0.3 0.0 - 1.3 05/23/2018 [facility] Monocytes 10e9/L 3:42 PM [facility] Absolute 0.2 0.0 - 0.7 05/23/2018 [place] Eosinophils 10e9/L 3:42 PM [facility] Absolute 0.0 0.0 - 0.2 05/23/2018 [place] Basophils 10e9/L 3:42 PM [facility] Abs Immature 0.0 0 - 0.4 05/23/2018 [place] Granulocytes 10e9/L 3:42 PM [facility] Absolute 0.0 05/23/2018 [facility] Nucleated RBC 3:42 PM [facility] Specimen Anatomical Collection Method Collection Time Receive d Time (Source) Location / / Volume Laterality Blood specimen 05/23/2018 3:34 PM 019 3:39 (specimen) CDT PM CDT Silke Muñiz MD LAB - BLOOD ORDERABLES Performing Organization Address City/State/ZIP Code Phon e Number [facility] [address] [address] [facility] [address] [phone] (ABNORMAL) Alcohol ethyl (05/23/2018 3:34 PM CDT) P athologist Signature Ethanol g/dL 0.17 (H) <0.01 g/dL 05/23/2018 [place] 3:59 PM [facility] Specimen Anatomical Collection Method Collection Time Receive d Time (Source) Location / / Volume Laterality Blood specimen 05/23/2018 3:34 PM 019 3:39 (specimen) CDT PM CDT Silke Muñiz MD LAB - BLOOD ORDERABLES Performing Organization Address City/State/ZIP Code Phon e Number [facility] [address] [place], [place] [address] [facility] [address] [place], [place] [address] [facility] [phone] documented in this encounter Visit Diagnoses Diagnosis Alcoholic intoxication without complicat ion (H) Elevated AST (SGOT) Nonspecific elevation of levels of trans aminase or lactic acid dehydrogenase (LDH) Elevated ALT measurement Nonspecific elevation of levels of trans aminase or lactic acid dehydrogenase (LDH) documented in this encounter Administered Medications Inactive Administered Medications - up to 3 most recent administrations Medication Order MAR Action Action Date Dose Rate Site LORazepam (ATIVAN) tablet 2 mg Given 05/23/2018 6:07 PM CDT 2 mg 2 mg, Oral, ONCE, On 05/23/18 at 1759, For 1 dose ondansetron (ZOFRAN) injection 4 mg Given 05/23/2018 5:21 PM CDT 4 mg 4 mg, Intravenous, EVERY 30 MIN PRN, nausea, vomiting, Administer over 2-5 Minutes, Starting on 05/23/18 at 1716, For 3 doses, May repeat in 30 minutes as needed, up to 3 doses. Irritant. For ordered IV doses 0.1-4 mg, give IV Push undiluted over 2-5 minutes. documented in this encounter Active and Recently Administered Medications Times are shown in CDT. Scheduled Medication Order 05/21/2018 05/22/2018 05/23/2018 LORazepam (ATIVAN) tablet 2 mg (COMPLETED) 1807 (Given - Provider: Leydi Steven RN) 2 mg, Oral, ONCE, 05/23/18 at 1759, For 1 dose PRN Medication Order 05/21/2018 05/22/2018 05/23/2018 ondansetron (ZOFRAN) injection 4 mg 1721 (Given - Provider: Leydi Steven, GENARO) 4 mg, Intravenous, EVERY 30 MIN PRN, esperanza sea, vomiting, Administer over 2-5 Minutes, Starting 05/23/18 at 1716, For 3 doses, May repeat in 30 minutes as needed, up to 3 doses. Irritant. For ordered IV doses 0.1-4 mg, give IV Push undiluted over 2-5 minutes. documented in this encounter Care Teams Level Designer Relationship Specialty Start Date End Date Clinic, [facility] PCP - General 01/20/18 06/28/[address] [place] [id number] documented as of this encounter
--- OUTSIDE RECORDS SUMMARY | 2021-11-10 00:40 | XMS_ITS | Encounter Summary ---
:1980 Author Organization [place] Address [address] [place] [address]. [place] [address] Care Team Providers Name Role Phone Clinic, [facility] Primary Care Provide r Reason for Referral Consultation (Routine) - Closed Specialty Diagnoses / Procedures Referred By Contact Refer red To Contact Diagnoses Joint effusion of the lower leg Marleny De Jesus MD [address] and [place], [place] [address] [facility] Keith Camryn Sanju [phone] Phone: Fax: Referral ID Status Reason Start Date Expiration Date Visits Requ ested Visits Authorized [id number] Closed 07/20/2018 07/20/2019 1 1 Reason for Visit Reason Comments Knee Pain Complains of left knee and l eg pain. States it started hurting 5 days ago. Was seen in ED and was given tordal and xray was done. Pt states they told her it was probably tendonit is. 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 documented as of this encounter Last Filed Vital Signs Vital Sign Reading Time Taken Comments Blood Pressure 113/76 07/20/2018 3:29 PM CDT Pulse 65 07/20/2018 3:29 PM CDT Temperature 36.9 ??C (98.4 ??F) 07/20/2018 3:29 PM CDT Respiratory Rate 18 07/20/2018 3:29 PM CDT Oxygen Saturation 98% 07/20/2018 3:29 PM CDT Inhaled Oxygen Concentration - - Weight 89 kg (196 lb 5 oz) 07/20/2018 1:08 PM CDT Height - - Body Mass Index 31.69 07/04/2018 9:43 PM CDT documented in this encounter Discharge Instructions Discharge InstructionsSharron Singletary RN - 07/20/2018 3:27 PM CDT Images from the original note were not included. Fluid on the Knee Fluid on the knee is also known as knee effusion. The knee joint normally has less than 1 ounce of fluid. Injury or inflammation of the knee joint causes extra fluid to collect there. When this happens, the knee joint looks swollen and is often painful. It may be hard to fully bend the knee. The most common cause of fluid on the knee is osteoarthritis due to wear and tear on the joint cartilage. Other causes include injury to the cartilage, inflammatory arthritis such as gout or rheumatoidarthritis, and infection of the joint. If the cause of the fluid is not certain, you may need a needle aspiration. This procedure removes asample of joint fluid from the knee for testing. Removing excess fluid may also relieve swelling andpain. Home care ?? Limit your activities. Stay off the injured leg as much as possible until pain improves. ?? Keep your leg elevated to reduce pain and swelling. When sleeping, place a pillow under the injured leg. When sitting, support the injured leg so it is above heart level. This is very important during the first 48 hours. ?? Apply an ice pack over the injured area for 15 to 20 minutes every 3 to 6 hours. You should do this for the first 24 to 48 hours. You can make an ice pack by filling a plastic bag that seals at the top with ice cubes and then wrapping it with a thin towel. Continue to use ice packs for relief of pain and swelling as needed. As the ice melts, be careful not to get your wrap, splint, or cast wet. After 48 hours, apply heat (warm shower or warm bath) for 15 to 20 minutes several times a day, or alternate ice and heat. If you have to wear a rmif-zbi-addu knee brace, you can open it to apply the ice pack, or heat, directly to the knee. Never put ice directly on the skin. Always wrap the ice in a towel or other type of cloth. ?? You may use??udww-kqn-hiqqrnn pain medicine to control pain, unless another pain medicine was prescribed. If you have chronic liver or kidney disease or have ever had a stomach ulcer or gastrointestinal bleeding, talk with your healthcare provider before??using these medicines. ?? If crutches or a walker have been recommended, don't put weight on the injured leg until you can do so without pain. Check with your healthcare provider before returning to sports or full work duties. ?? If you have a owqx-sxz-ppvr knee brace, you can remove it to bathe and sleep, unless told otherwise. Follow-up care Follow up with your healthcare provider as advised. If you are overweight, talk to your healthcare provider about a weight loss program. The excess weight puts extra strain on your knees. When to seek medical advice Call your healthcare provider right away if any of these occur: ?? Increasing pain, redness, or swelling of the knee ?? Fever of 100.4??F (38??C) or above lasting for 24 to 48 hours, or as advised ?? Shaking chills Date Last Reviewed: 06/17/2017 ?? [id number] [employer]. [address] [place] [address], [place] [address]. All rights reserved. This information is not intended as a substitute for professional medical care. Always follow your healthcare professional's instructions. Wear the knee immobilizer when walking. You should take it off at bedtime. You don't want your knee to become stiff, so taking it off allows it to move a bit and avoid stiffness. You can continue to use ibuprofen for pain if needed. If you are not better within 1-2 weeks, please make an appointment to follow up with Sports Medicine(phone: ) AttachmentsThe following attachments cannot be sent through Care Everywhere.Knee Effusion (Northern Irish)documented in this encounter Medications at Time of [...] documented as of this encounter ED Notes Sharron Singletary RN - 07/20/2018 3:32 PM CDT [facility] notified about patient getting discharge. Marleny De Jesus MD - 07/20/2018 12:33 PM CDT History Chief Complaint Patient presents with ??? Knee Pain Complains of left knee and leg pain. States it started hurting 5 days ago. Was seen in ED and was given tordal and xray was done. Pt states they told her it was probably tendonitis. HPI Stephani King is a 37 year old female who presents to the ED for left knee pain. She says this started 5 days ago. She has had this issue before. The pain seems to wrap around the knee cap and then go into the back of the leg. She thinks this happened when she was working out recently on the treadmill and eliptical. She is currently in [facility]. She was seen and given toradol that helped. She also had an xray. LEFT KNEE ONE OR TWO VIEWS 07/19/2018 11:12 AM ?? HISTORY: Suprapatellar pain. ?? COMPARISON: Left knee 08/30/2006. ?? IMPRESSION: No acute fracture or dislocation. Anatomic alignment. ?? Ibuprofen and naproxen don't seem to be helping the pain. I have reviewed the Medications, Allergies, Past Medical and Surgical History, and Social History inthe [employer] system. Review of Systems Musculoskeletal: Positive for gait problem. All other systems reviewed and are negative. Physical Exam BP: 116/67 Pulse: 77 Temp: 97.9 ??F (36.6 ??C) Resp: 18 Weight: 89 kg (196 lb 5 oz) SpO2: 97 % Physical Exam Constitutional: She appears well-developed and well-nourished. No distress. HENT: Head: Normocephalic and atraumatic. Eyes: EOM are normal. Neck: Normal range of motion. Cardiovascular: Normal rate and intact distal pulses. Pulmonary/Chest: Effort normal. Musculoskeletal: Able to bear weight. Decreased flexion of left knee. Right knee rom intact. No redness, swelling, deformity. Increased warmth. She has healing excoriation/pick sow all over her leg. No redness or concern for infection. No laxity on exam. Skin: She is not diaphoretic. Nursing note and vitals reviewed. ED Course Procedures Labs Ordered and Resulted from Time of ED Arrival Up to the Time of Departure from the ED - No data to display Assessments & Plan (with Medical Decision Making) The patient presents for continued left knee pain. [facility]. She has had this before. She thinks it could have happened with working out. Xray was reviewed and is negative from 07/19/18. She was given toradol 30 mg IM for pain which she requested. She is not and creatinine from prior testing is normal. Venous ultrasound was done given pain behind her knee. Results of ultrasound shows no dvt but does show knee effusion. By history, she thinks she aggravated it when she was recently working out. She was given a knee immobilizer for comfort. She is [facility] so will continuewith ibuprofen for pain if needed. She was given the number to sports medicine if it does not improve within 2 weeks. I have reviewed the nursing notes. I have reviewed the findings, diagnosis, plan and need for follow up with the patient. Medication List There are no discharge medications for this visit. Final diagnoses: Joint effusion of the lower leg 07/20/2018 [facility], EMERGENCY DEPARTMENT Marleny De Jesus MD 07/20/18 1542 documented in this encounter Plan of Treatment Upcoming Encounters Date Type Specialty Care Team Description 11/15/2021 Office Visit Wound Care Luis Camara DPM [address] [place] [address] (Wo rk) Scheduled Referrals Name Type Priority Associated Diagnoses Order S chedule SPORTS MEDICINE Referral Routine Joint effusion of the 1 O ccurrences starting REFERRAL lower leg 07/20/2018 unti l 09/19/2018 documented as of this encounter Procedures Procedure Name Priority Date/Time Associated Diagnosis Comme nts US LOWER EXTREMITY STAT 07/20/2018 2:31 PM Res ults for this VENOUS DUPLEX LEFT CDT procedure are in the results section. documented in this encounter Results US Lower Extremity Venous Duplex Left (07/20/2018 2:31 PM CDT) Anatomical Region Laterality Modality Vascular, Thigh, Leg Ultrasound Specimen (Source) Anatomical Location Collection Method / Collectio n Time Received Time / Laterality Volume Impressions 07/21/2018 7:55 AM CDT IMPRESSION: 1. No evidence of thrombus in the major veins of the left lower extremity. 2. Small to moderate-sized left knee maverick nt effusion. CHRIS COURTNEY MD Narrative 07/21/2018 7:55 AM CDT ULTRASOUND VENOUS LEFT LOWER EXTREMITY WITH DOPPLER ??07/20/2018 2:31 PM HISTORY: Left lower extremity pain and s welling. COMPARISON: None. TECHNIQUE: Spectral waveform and color D oppler evaluation were performed. FINDINGS: Normal compressibility of the left common femoral, femoral, popliteal, posterior tibial, peroneal an d greater saphenous veins. Unremarkable Doppler waveform evaluation of the left common femoral, femoral and popliteal veins. A small to moderate-sized left knee joint effusion. Procedure Note Chris Courtney MD - 07/21/2018Fo rmatting of this note might be different from the original. ULTRASOUND VENOUS LEFT LOWER EXTREMITY W ITH DOPPLER 07/20/2018 2:31 PM HISTORY: Left lower extremity pain and s welling. COMPARISON: None. TECHNIQUE: Spectral waveform and color D oppler evaluation were performed. FINDINGS: Normal compressibility of the left common femoral, femoral, popliteal, posterior tibial, peroneal an d greater saphenous veins. Unremarkable Doppler waveform evaluation of the left common femoral, femoral and popliteal veins. A small to moderate-sized left knee joint effusion. IMPRESSION: 1. No evidence of thrombus in the major veins of the left lower extremity. 2. Small to moderate-sized left knee maverick nt effusion. CHRIS COURTNEY MD Marleny De Jesus MD [facility] US ORDERABLES documented in this encounter Visit Diagnoses Diagnosis Joint effusion of the lower leg - Primar y Effusion of lower leg joint documented in this encounter Administered Medications Inactive Administered Medications - up to 3 most recent administrations Medication Order MAR Action Action Date Dose Rate Site ketorolac (TORADOL) injection 30 mg Given 07/20/2018 1:44 PM CDT 30 mg 30 mg, Intramuscular, ONCE, On 07/20/18 at 1330, For 1 dose, Can cause pain on [...] are shown in CDT. Scheduled Medication Order 07/18/2018 07/19/2018 07/20/2018 ketorolac (TORADOL) injection 30 mg (COMPLETED) 1344 (Given - Provider: Sharron Singletary RN) 30 mg, Intramuscular, ONCE, 07/20/18 a t 1330, For 1 dose, Can cause pain on [...] documented as of this encounter Care Teams Ethnic Origins Teacher Relationship Specialty Start Date End Date Clinic, [facility] PCP - General 01/20/18 06/28/[address] [place] [address] documented as of this encounter
--- OUTSIDE RECORDS SUMMARY | 2021-11-10 00:40 | XMS_ITS | Encounter Summary ---
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 documented as of this encounter Plan of Treatment Upcoming Encounters Date Type Specialty Care Team Description 11/15/2021 Office Visit Wound Care Luis Camara DPM [address] [place], [place] [address] (Wo rk) documented as of this encounter Visit Diagnoses Not on filedocumented in this encounter Additional Health Concerns Assessment Noted Time PHQ-9 Depression Total Score: 10 07/08/2018 1:27 PM CD T documented as of this encounter Care Teams Kindergarten Teacher Relationship Specialty Start Date End Date Clinic, [facility] PCP - General 01/20/18 06/28/21 [facility] [place] [address] documented as of this encounter
--- OUTSIDE RECORDS SUMMARY | 2021-11-10 00:40 | XMS_ITS | Encounter Summary ---
:1980 Author Organization [place] Address [address] [place] [address]. [place] [address] Care Team Providers Name Role Phone 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 PCP - General 01/20/18 06/28/[address] [place] [id number] documented as of this encounter
--- OUTSIDE RECORDS SUMMARY | 2021-11-10 00:40 | XMS_ITS | Encounter Summary ---
:1980 Author Organization [place] Address [address] [place] [address] Care Team Providers Name Role Phone Clinic, [facility] Primary Care Provide r Guerita Haasherb Bills MANAGER SALES SURGICAL PRODUCT SALES CONSULTANT Unavailable [phone] Stephani Pina MANAGER SALES SURGICAL PRODUCT SALES CONSULTANT Unavailable Reason for Visit Reason Onset Date Comments [facility] 07/04/2018 Encounter Details Date Type Department Care Team Description 07/04/2018 Telephone [facility] Generic, Behavioral [facility] MD Miguel [address] [place] [phone] Social History Tobacco Use Types Packs/Day [...] at Date Recorded Female 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 documented as of this encounter Miscellaneous Notes Telephone Encounter - Shelbi Frank - 07/08/2018 4:05 PM CDT [facility] auth requested faxed. fb Telephone Encounter - Scout Jarvis LADC - 07/08/2018 1:02 PM CDT This patient was admitted to the [facility] program on 07/08/2018. Please see the SBAR in the telephone note below completed by the vacation planner for details on this patient. Telephone Encounter - Scout Jarvis LADC - 07/08/2018 1:00 PM CDT Attn: Central Intake ?? This patient was admitted to the LP program on 07/08/2018. Please send the [facility] referral paperwork to [facility] to activate the authorization for the LP program. Telephone Encounter - Marlena Trujillo LADC - 07/06/2018 1:32 PM CDT SBAR Name: Stephani King Date of : 1980 Age: [age] year old Gender: female Referral Source: Self Referral GIOVANNA: N/A Insurance: [facility]: [facility] Precipitating Event: Treatment due to own awareness of need for help DOC: Alcohol Additional abused substances: Opiates and Nicotine Medical: Chronic pain and chronic hep C Mental Health: Depression, Anxiety, PTSD and Borderline Personality D/O Prior Detox admissions: 3 prior IP detoxification admission(s). Prior CD treatments: 4 prior CD treatment(s). Psychosocial history: 1 adult child(kayden), 3 minor child(kayden) and 1 step-child(kayden) Stable housing and no concerns Good support network, No history of legal charges, Current child protection involvement, Unemployed and Stable finances [place] Suicide Risk Status: Past month: 0. - Very Low Risk: Evaluation Counselors: Document in Epic / SBAR to counselor Very Low Risk. Treatment Counselors: Reassess upon admission as applicable, assess weekly in progress notesunder Dimension 3 and summarize in Discharge / Treatment summary under Dimension 3. Past 24 hours: 0. - Very Low Risk: Evaluation Counselors: Document in Epic / SBAR to counselor VeryLow Risk. Treatment Counselors: Reassess upon admission as applicable, assess weekly in progress notes under Dimension 3 and summarize in Discharge / Treatment summary under Dimension 3. Additional Info as needed: Pt has in home ARM, Therapist, , and CD Counselor Telephone Encounter - Shelbi Frank - 07/06/2018 10:54 AM CDT 07-06- Added to L+ Priority List. fb Please notify Intake upon L+ admit so Intake can get [facility] auth. fb Telephone Encounter - Mary Ellen Larsen LICSW - 07/06/2018 10:11 AM CDT LP SCREEN TELEPHONE NOTE Stephani King paperwork was reviewed by JANETT York and the patient was deemed ELIGIBLE for the LP program. Medical: The patient is medically stable and did not appear to need a medical screening with the LP RN at this time. Insurance: [facility] MA/PMAP - The admitting counselor NEEDS to notify [facility] of the patient's admission to treatment on the day/evening of the admission with a routed telephone note. After being informed of the admission date for treatment [facility] will need to fill out the [facility] referral forms with the patient's start date and then fax the [facility] referral forms to [facility] to activate the authorization for treatment. This will be a: 3A DIRECT TRANSFER, F140 will complete the VA, ISP and the LP UPDATE. IV use or : This patient is not or an IV drug user. Business office: The patient has [facility] MA/PMAP and would NOT need to consult with anyone in the business office about the out of pocket costs of the LP program. List: This patient CAN be placed on the PRIORITY LP Waiting List at this time. Group: Women's Group or Mental Health Enhanced Mixed Group Additional Info as needed: NA The best current contact telephone number for the patient is: [phone] @ [phone] Mary Ellen Franklin LICSW 07/06/2018 Telephone Encounter - Abrahan Waldrop - 07/04/2018 6:57 PM CDT S: [place] ED MD called at [phone] a 37 y/o female for inpatient detox. B: Pt presents to the ED seeking detox from alcohol. Pt reports drinking 1 pint of vodka daily. Pt reports she has been doing this for a long time. Her last use was just prior to arrival. Alcohol breath test result was 0.14 at 1836. Pt denies hx of withdrawal seizures or DT's. UDS is positive for benzodiazepines and ethanol. Pt reports she is on Subutex 2mg. Pt denies SI. A: Voluntary. R: calliope player paged at 191 to review for placement on 3A/Veluvali. calliope player approved admission at 1923.Unit notified at 2000. ED notified at 2007. documented in this encounter Plan of Treatment Upcoming Encounters Date Type Specialty Care Team Description 11/15/2021 Office Visit Wound Care Luis Camara DPM [address] [place] [address] (Wo rk) documented as of this encounter Visit Diagnoses Diagnosis Alcohol abuse, continuous - Primary Nondependent alcohol abuse, continuous d rinking behavior documented in this encounter Care Teams Credit Collections Specialist Relationship Specialty Start Date End Date Clinic, [facility] PCP - General 01/20/18 06/28/21 [facility] [place] [address] Tatyana Haas APRN SURGICAL PRODUCT SALES CONSULTANT Assigned PCP 08/02/18 01/29/20 [facility] [address] [facility] [address] [place], [place] [address] Stephani Pina APRN SURGICAL PRODUCT SALES CONSULTANT Assigned PCP 01/30/20 12/30/20 [address] [place] [address] documented as of this encounter
--- OUTSIDE RECORDS SUMMARY | 2021-11-10 00:40 | XMS_ITS | Encounter Summary ---
:1980 Author Organization [facility] Address [address] [place] [address]. [place] [address] Care Team Providers Name Role Phone Clinic, Formerly [facility] Primary Care Provide r Reason for Visit Reason Comments Alcohol Problem Vomiting Encounter Details Date Type Department Care Team Description 02/24/2018 Emergency [facility] Celestino Knxo A lcohol withdrawal syndrome with complication (H); [facility] Emergency Dep t Non-intractable vomiting with nausea, un specified vomiting type [address] [facility] [place], [place] [id number] 5438 [facility] [phone] [place], [place] [address] (Wo rk) Social History Tobacco Use Types [...] at Date Recorded Female 01/14/2020 10:57 AM [employer]IMING POWDER [employer]MIX BLENDER documented as of this encounter Last Filed Vital Signs Vital Sign Reading Time Taken Comments Blood Pressure 130/81 02/24/2018 5:30 PM [employer] Pulse 86 02/24/2018 5:30 PM [employer] P[employer] BL[employer]ER Temperature 36.6 ??C (97.8 ??F) 02/24/2018 1:15 PM [employer] BL[employer]ER Respiratory Rate 14 02/24/2018 1:15 PM [employer] P[employer] BLENDER Oxygen Saturation 95% 02/24/2018 5:30 PM [employer] BL[employer]ER Inhaled Oxygen Concentration - - Weight - - Height - - Body Mass Index - - documented in this encounter Discharge Instructions Discharge InstructionsCelestino Knox MD - 02/24/2018 4:37 PM [employer]ING P[employer]DER [employer]MIX BLENDER Do not take the Librium while breast-feeding. Discharge Instructions Vomiting You have been seen today for vomiting (throwing up). This is usually caused by a virus, but some bacteria, parasites, medicines or other medical conditions can cause similar symptoms. At this time yourprovider does not find that your vomiting is a sign of anything dangerous or life-threatening. However, sometimes the signs of serious illness do not show up right away. If you have new or worse symptoms, you may need to be seen again in the Emergency Department or by your primary provider. Remember that serious problems like appendicitis can start as vomiting. Generally, every Emergency Department visit should have a follow-up clinic visit with either a primary or a specialty clinic/provider. Please follow-up as instructed by your emergency provider today. Return to the Emergency Department if: You keep vomiting and you are not able to keep liquids down. You feel you are getting dehydrated, such as being very thirsty, not urinating (peeing) at least every 8-12 hours, or feeling faint or lightheaded. You develop a new fever, or your fever continues for more than 2 days. You have abdominal (belly pain) that seems worse than cramps, is in one spot, or is getting worse over time. Appendicitis usually causes pain in the right lower abdomen (to the right and below your belly button) so watch for pain in this location. You have blood in your vomit or stools. You feel very weak. You are not starting to improve within 24 hours of your visit here. What can I do to help myself? The most important thing to do is to drink clear liquids. If you have been vomiting a lot, it is best to have only small, frequent sips of liquids. Drinking too much at once may cause more vomiting. Ifyou are vomiting often, you must replace minerals, sodium and potassium lost with your illness. Pedialyte?? is the best available rehydration liquid but some find that it doesn?t taste good so sports drinks are an alterative. You can also drink clear liquids such as water, weak tea, apple juice, and 7-Up??. Avoid acid liquids (orange), caffeine (coffee) or alcohol. Do not drink milk until you no longer have diarrhea (loose stools). After liquids are staying down, you may start eating mild foods. Soda crackers, toast, plain noodles, gelatin, applesauce and bananas are good first choices. Avoid foods that have acid, are spicy, fatty or have a lot of fiber (such as meats, coarse grains, vegetables). You may start eating these foodsagain in about 3 days when you are better. Sometimes treatment includes prescription medicine to prevent nausea (sick to your stomach) and vomiting. If your provider prescribes these for you, take them as directed. Do not take ibuprofen, naproxen, or other nonsteroidal anti-inflammatory (NSAID) medicines without checking with your healthcare provider. If you were given a prescription for [...] are not able to see your regular provider in the amount of time listed above, if you get any new symptoms, or if there is anything that worries you. ING POWDER PREMIX BLENDER AttachmentsThe following attachments cannot be sent through Care Everywhere. ALCOHOL WITHDRAWAL (WALLISIAN)documented in this encounter Medications at Time of [...] tabletIndications: S/P for 3 days emergency hysterectomy chlordiazePOXIDE Take 1 capsule (25 10 capsule [...] documented as of this encounter ED Notes Tarsha Lange RN - 02/24/2018 1:13 PM CST Patient reports has been drinking heavily recently. States has had vomiting x 2 days. Also reports feeling some palpitations. ING POWDER PREMIX BLENDER Celestino Knox MD - 02/24/2018 1:03 PM CST History Chief Complaint: Alcohol Problem and Vomiting HPI Stephani King is a 37 year old female with history of hypothyroidism, who presents for evaluation of vomiting and alcohol problem. The patient states she was in alcohol detox for the first time, was there for 3 days before relapsing recently. She has been drinking 0.5 L of Vodka each day for one week. Her last drink was last night. Yesterday, she started vomiting, though was still able to keep somefluids down. However, today she has continued to vomit and has not been able to keep anything down. She has no associated abdominal pain. She also feels an irregular heart beat, feels sweaty at times, and her hands and legs appear swollen. No diarrhea. No withdrawal seizures. The patient denies being . 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 Smoking Status: current, 1 ppd Smokeless Tobacco: never Alcohol Use: yes Drug Use: yes Marital Status: [2] Review of Systems Constitutional: Positive for diaphoresis. Cardiovascular: Positive for leg swelling. Gastrointestinal: Positive for nausea and vomiting. Negative for diarrhea. Neurological: Negative for seizures. All other systems reviewed and are negative. Physical Exam Patient Vitals for the past 24 hrs: BP Temp Pulse Resp SpO2 02/24/18 1315 (!) 157/110 97.8 ??F (36.6 ??C) 97 14 98 % Physical Exam Constitutional: Pleasant, female. Resting comfortably in the bed. HEENT: Oropharynx is moist Eyes: Conjunctiva normal Neck: Supple, no meningismus. CV: Regular rate and rhythm. No murmurs, rubs or gallops. No lower extremity edema. PULM: Clear to auscultation bilateral. No respiratory distress. Good air exchange. ABD: Soft, non-distended. No abdominal tenderness. Bowel sounds normal. No pulsatile masses. No rebound, guarding or rigidity. No CVA tenderness. MSK: No gross deformity to all four extremities. LYMPH: No cervical lymphadenopathy. NEURO: Alert & O x 3. No tremor. Good muscular tone, no atrophy. Skin: Warm, dry and intact. Psych: Mood is good and affect is appropriate. Emergency Department Course ECG: ECG taken at 1332, ECG read at 1620 Normal sinus rhythm Normal ECG Rate 90 bpm. SC interval 176. QRS duration 96. QT/QTc 392/479. P-R-T axes 43,55,37. Laboratory: Laboratory findings were communicated with the patient who voiced understanding of the findings. Venous Blood Gas Lab 02/24/18 1559 PHV 7.43 PCO2V 40 PO2V 52* HCO3V 26 JOHAN 1.9 O2PER Room air CBC: WBC 3.9 (L), HGB 13.9, PLT 135 (L) CMP: BUN 6 (L), K 3.3 (L), Ca 8.4 (L), ALT 241 (H), AST 326 (H), Glucose 114 (H) o/w WNL (Creatinine0.63) INR: 1.00 Alcohol ethyl: 0.06 (H) Magnesium: 1.8 Ketone Beta-Hydroxybutyrate Quant: 0.1 HCG Qualitative Blood: negative Interventions: 1527 NS, 1 L, IV 1528 Zofran, 8 mg, IV 1528 Valium 5 mg IV 1606 Potassium Chloride 40 mEq PO Emergency Department Course: Nursing notes and vitals reviewed. I entered the room. I performed an exam of the patient as documented above. EKG obtained in the ED, see results above. IV was inserted and blood was drawn for laboratory testing, results above. The patient received the above intervention(s). 1634 the patient was rechecked and updated regarding the results of the laboratory studies. I discussed the treatment plan with the patient. They expressed understanding of this plan and consented to discharge. They will be discharged home with instructions for care and follow up. In addition, the patient will return to the emergency department if their symptoms worsen, if new symptoms ariseor if there is any concern. All questions were answered. Impression & Plan Medical Decision Making: Stephani King is a 37 year old female who presents to the emergency department today for evaluation of chronic alcohol abuse and now developing nausea and vomiting. She has no signs of acute intoxication on examination. She has mild signs of alcohol withdrawal with low-grade tachycardia and mild tremor. This resolved with a single dose of Valium. She has no significant electrolyte disturbance outside mild hypokalemia related to vomiting. She has no signs of alcoholic ketoacidosis. Findings are most suggestive of mild alcohol withdrawal. Patient safe for discharge home and will be placed on as needed Librium. Zofran as needed for nausea and vomiting. I offered her transfer to detox for which she has declined. Patient will closely follow-up with her primary care physician and return to the ED forany worsening symptoms. Diagnosis: ICD-10-CM 1. Alcohol withdrawal syndrome with complication (H) F10.239 2. Non-intractable vomiting with nausea, unspecified vomiting type R11.2 Disposition: The patient was discharged to home. Discharge Medications: Current Discharge Medication List START taking these medications Details chlordiazePOXIDE (LIBRIUM) 25 MG capsule Take 1 capsule (25 mg) by mouth 3 times daily as needed forwithdrawal Qty: 10 capsule, Refills: 0 ondansetron (ZOFRAN ODT) 4 MG ODT tab Take 1 tablet (4 mg) by mouth every 6 hours as needed for nausea Qty: 10 tablet, Refills: 0 Scribe Disclosure: Max Powers, am serving as a scribe at 3:00 PM on 02/24/2018 to document services personally performed by Celestino Knox MD, based on my observations and the provider's statements to me. [facility] EMERGENCY DEPARTMENT Celestino Knox MD 02/24/18 8120 [employer] BLENDER documented in this encounter Plan of Treatment Upcoming Encounters Date Type Specialty Care Team Description 11/15/2021 Office Visit Wound Care Luis Camara DPM [address] [place] [address] (Wo rk) documented as of this encounter Procedures Procedure Name Priority Date/Time Associated Comments Diagnosis BLOOD GAS VENOUS WITH STAT 02/24/2018 3:59 PM Results for this OXYHEMOGLOBIN [employer]ER procedure are in the results section. HCG QUALITATIVE Routine 02/24/2018 3:21 PM Result s for this [employer]ER procedure are i n the results section. INR STAT 02/24/2018 3:20 PM Results f or this [employer]ENDER procedure are i n the results section. MAGNESIUM STAT 02/24/2018 3:20 PM Results f or this [employer] BLENDER procedure are i n the results section. KETONE STAT 02/24/2018 3:20 PM Results f or this BETA-HYDROXYBUTYRATE [employer] BLENDER procedu re are in QUANTITATIVE, RAPID the resu lts section. COMPREHENSIVE STAT 02/24/2018 3:20 PM Results for this METABOLIC PANEL [employer] BL[employer]ER procedure ar e in the results section. ETHYL ALCOHOL LEVEL STAT 02/24/2018 3:20 PM Re sults for this [employer] BLENDER procedure are i n the results section. CBC WITH PLATELETS STAT 02/24/2018 3:20 PM Res ults for this [employer] BLENDER procedure are i n the results section. EKG 12-LEAD, TRACING STAT 02/24/2018 1:32 PM R esults for this ONLY [employer] P[employer] BLENDER procedure are i n the results section. documented in this encounter Results (ABNORMAL) Blood gas venous and oxyhgb (02/24/2018 3:59 PM PRIMING POWDER PREMIX BLENDER) [employer] gist Method Time Signature Ph Venous 7.43 7.32 - 02/24/2018 [facility] 7.43 pH 4:11 PM [facility] PCO2 Venous 40 40 - 50 02/24/2018 [facility] mm Hg 4:11 PM [facility] PO2 Venous 52 (H) 25 - 47 02/24/2018 [facility] mm Hg 4:11 PM [facility] Bicarbonate 26 21 - 28 02/24/2018 [facility] Venous mmol/L 4:11 PM [facility] FIO2 Room air 02/24/2018 [facility] 3:59 PM [facility] Oxyhemoglobin 80 % 02/24/2018 [facility] Venous 4:11 PM [facility] Base Excess 1.9 mmol/L 02/24/2018 [facility] Venous 4:11 PM [facility] Comment: Reference range: -7.7 to 1.9 Specimen Anatomical Collection Method Collection Time Receive d Time (Source) Location / / Volume Laterality 02/24/2018 3:59 PM 9 4:00 PRIM[employer] BLENDER PM PR[employer] P[employer]DER [employer] BLENDER Celestino Knox MD LAB - BLOOD ORDERABLES Performing Organization Address City/[facility]/ZIP Code Phon e Number [facility] [address], [place] [address] [facility] [address] [place] [id number] [phone], [facility] [phone] HCG qualitative (02/24/2018 3:21 PM PRIM[employer] POWDER [employer] BLENDER) Patholo gist Method Time Signature HCG Qualitative Negative NEG^Negati 02/24/2018 [place] Serum ve 4:02 PM [facility] Comment: This test is for screening purposes. ??R esults should be interpreted along with the clinical picture. ??Confirmation te sting is available if warranted by ordering [id number], HCG Quantitative Pregna ncy. Specimen Anatomical Collection Method Collection Time Receive d Time (Source) Location / / Volume Laterality Blood specimen 02/24/2018 3:21 PM 019 3:28 (specimen) [employer] BLENDER PM [employer] BLENDER Celestino Knox MD LAB - BLOOD ORDERABLES Performing Organization Address [facility]/ZIP Code Phon e Number [facility] [address], [place] [address] [facility] [address] [place] [address], [facility] [phone] Ketone Beta-Hydroxybutyrate Quantitative (02/24/2018 3:20 PM PRIMING POWDER [employer]MIX BLENDER) P athologist Signature Ketone 0.1 0.0 - 0.6 02/24/2018 [place] Quantitative mmol/L 3:37 PM [facility] Specimen Anatomical Collection Method Collection Time Receive d Time (Source) Location / / Volume Laterality Blood specimen 02/24/2018 3:20 PM 019 3:21 (specimen) [employer] BLENDER PM PR[employer] P[employer]DER [employer]MIX BLENDER Celestino Konx MD LAB - BLOOD ORDERABLES Performing Organization Address [facility]/ZIP Code Phon e Number [facility] [address], [place] [address] [facility] [address], [place] [address], [facility] [phone] Magnesium (02/24/2018 3:20 PM PRIMING P[employer]DER [employer] BLENDER) athologist Signature Magnesium 1.8 1.6 - 2.3 02/24/2018 [facility] mg/dL 3:52 PM [facility] Specimen Anatomical Collection Method Collection Time Receive d Time (Source) Location / / Volume Laterality Blood specimen 02/24/2018 3:20 PM 019 3:21 (specimen) [employer]ING P[employer]DER [employer]MIX BLENDER PM PR[employer] P[employer]DER [employer]MIX BLENDER Celestino Knox MD LAB - BLOOD ORDERABLES Performing Organization Address [facility] Phon e Number [facility] [address], [place] [address] [place] [address] [address] [place] [phone], [facility] [phone] (ABNORMAL) Alcohol level blood (02/24/2018 3:20 PM PRIMING POWDER [employer]MIX BLENDER) athologist Signature Ethanol g/dL 0.06 (H) <0.01 g/dL 02/24/2018 [place] 3:52 PM [facility] Specimen Anatomical Collection Method Collection Time Receive d Time (Source) Location / / Volume Laterality Blood specimen 02/24/2018 3:20 PM 019 3:21 (specimen) PR[employer] P[employer]DER [employer]MIX BLENDER PM PRIMING POWDER [employer]MIX BLENDER Celestino Knox MD LAB - BLOOD ORDERABLES Performing Organization Address [facility] Phon e Number M [facility] [address], [place] [address] [facility] [address], [place] [address] [facility] [phone] INR (02/24/2018 3:20 PM PRIMING POWDER [employer] BLENDER) athologist Signature INR 1.00 0.86 - 1.14 02/24/2018 [facility] 3:46 PM [facility] Specimen Anatomical Collection Method Collection Time Receive d Time (Source) Location / / Volume Laterality Blood specimen 02/24/2018 3:20 PM 019 3:21 (specimen) PRIMING POWDER [employer]MIX BLENDER PM PRIMING POWDER PREMIX BLENDER Celestino Knox MD LAB - BLOOD ORDERABLES Performing Organization Address City/[facility]/ZIP [facility] [place] Phon e Number M [facility] [address], [place] [address] [facility] [address], [place] [address] [phone] (ABNORMAL) Comprehensive metabolic panel (02/24/2018 3:20 PM PRIMING POWDER PREMIX BLENDER) athologist Signature Sodium 139 133 - 144 02/24/2018 [facility] mmol/L 3:41 PM [facility] Potassium 3.3 (L) 3.4 - 5.3 02/24/2018 [facility] mmol/L 3:41 PM [facility] Chloride 103 94 - 109 02/24/2018 [place] mmol/L 3:41 PM [facility] Carbon Dioxide 27 20 - 32 02/24/2018 [place] mmol/L 3:51 PM [facility] Anion Gap 9 3 - 14 02/24/2018 [place] mmol/L 3:51 PM [facility] Glucose 114 (H) 70 - 99 02/24/2018 [facility] mg/dL 3:51 PM [facility] Urea Nitrogen 6 (L) 7 - 30 02/24/2018 [facility] mg/dL 3:51 PM [facility] Creatinine 0.63 0.52 - 02/24/2018 [facility] 1.04 mg/dL 3:51 PM [facility] GFR Estimate >90 >60 02/24/2018 [place] mL/min/{1. 3:51 PM [facility] 73_m2} HOSPITAL Comment: Non GFR Calc Starting 02/03/2018, serum creatinine ba sed estimated GFR (eGFR) will be calculated using the Chronic Kidney Dise [facility] Epidemiology Collaboration (CKD-EPI) equation. GFR Estimate If >90 >60 mL/min/{1.73_m2} 02/24/2018 3: 51 PM [facility] Comment: GFR Calc Starting 02/03/2018, serum creatinine ba sed estimated GFR (eGFR) will be calculated using the Chronic Kidney Dise [facility] Epidemiology Collaboration (CKD-EPI) equation. Calcium 8.4 (L) 8.5 - 10.1 02/24/2018 3:51 PM [place] R IDGES mg/dL [facility] Bilirubin Total 0.8 0.2 - 1.3 mg/dL 02/24/2018 3:52 PM [facility] Albumin 3.6 3.4 - 5.0 g/dL 02/24/2018 3:52 PM [facility] Protein Total 7.8 6.8 - 8.8 g/dL 02/24/2018 3:52 PM [facility] Alkaline Phosphatase 129 40 - 150 U/L 02/24/2018 3:52 PM [facility] ALT 241 (H) 0 - 50 U/L 02/24/2018 3:52 PM [facility] AST 326 (H) 0 - 45 U/L 02/24/2018 3:52 PM [facility] Specimen Anatomical Collection Method Collection Time Receive d Time (Source) Location / / Volume Laterality Blood specimen 02/24/2018 3:20 PM 019 3:21 (specimen) PRIMING POWDER [employer]MIX BLENDER PM PRIMING P[employer]DER PREMIX BLENDER Celestino Knox MD LAB - BLOOD ORDERABLES Performing Organization Address City/State/ZIP Code Phon e Number [place] [address] [phone] (ABNORMAL) CBC (platelets, no diff) (02/24/2018 3:20 PM PRIMING POWDER PREMIX BLENDER) P athologist Signature WBC 3.9 (L) 4.0 - 11.0 02/24/2018 [facility] 10e9/L 3:33 PM [facility] RBC Count 4.24 3.8 - 5.2 02/24/2018 [facility] 10e12/L 3:33 PM [facility] Hemoglobin 13.9 11.7 - 02/24/2018 [facility] 15.7 g/dL 3:33 PM [facility] Hematocrit 40.9 35.0 - 02/24/2018 [facility] 47.0 % 3:33 PM [facility] MCV 97 78 - 100 02/24/2018 [facility] fl 3:33 PM [facility] MCH 32.8 26.5 - 02/24/2018 [facility] 33.0 pg 3:33 PM [facility] MCHC 34.0 31.5 - 02/24/2018 [facility] 36.5 g/dL 3:33 PM [facility] RDW 11.8 10.0 - 02/24/2018 [facility] 15.0 % 3:33 PM [facility] Platelet Count 135 (L) 150 - 450 02/24/2018 [facility] 10e9/L 3:33 PM [facility] Specimen Anatomical Collection Method Collection Time Receive d Time (Source) Location / / Volume Laterality Blood specimen 02/24/2018 3:20 PM 019 3:21 (specimen) PRIMING POWDER PREMIX BLENDER PM PRIMING POWDER PREMIX BLENDER Celestino Knox MD LAB - BLOOD ORDERABLES Performing Organization Address City/[facility]/ZIP Code Phon e Number [place] [address] [facility] [address] [place] [address] [facility] [phone] EKG 12 lead (02/24/2018 1:32 PM PRIM[employer] P[employer] BLENDER) [facility] Method Time Signature Interpretation ECG Click View RADIOLOGY Image link RESULTS to view waveform and result Specimen (Source) Anatomical Collection Method Collection Time Re ceived Time Location / / Volume Laterality 02/24/2018 1:32 PM PRIM[employer] P[employer]DER [employer] BLENDER Christopher Carrion MD ECG ORDERABLES Performing Organization Address City/[facility] Phon e Number RADIOLOGY RESULTS documented in this encounter Visit Diagnoses Diagnosis Alcohol withdrawal syndrome with complic ation (H) Non-intractable vomiting with nausea, un specified vomiting type documented in this encounter Administered Medications Inactive Administered Medications - up to 3 most recent administrations Medication Order MAR Action Action Date Dose Rate Site 0.9% sodium chloride BOLUS New Bag 02/24/2018 3:27 PM [employer]ING P[employer]DER [employer] BLENDER 1,000 mLs 1000 mL/hr Intravenous, 1,000 mL, ONCE, at 1,000 mL/hr, Administer over 1 Hours, On Fri02/24/18 at 1506, For 1 dose diazepam (VALIUM) injection 5 mg Given 02/24/2018 3:28 PM PR[employer] P[employer]DER [employer] BLENDER 5 mg 5 mg, Intravenous, Administer over 1-4 Minutes, ONCE, On Fri02/24/18 at 1506, For 1 dose, Vesicant. For ordered doses up to 20 mg, give IV Push undiluted. Administer each 5mg over 1 minute. See IV push link for additional instructions. ondansetron (ZOFRAN) injection 8 mg Given 02/24/2018 3:28 PM PRIM[employer] P[employer]DER [employer] BLENDER 8 mg 8 mg, Intravenous, ONCE, Administer over 2-5 Minutes, On 02/24/18 at 1506, For 1 dose, Irritant. For ordered IV doses 0.1-4 mg, give IV Push undiluted over 2-5 minutes. potassium chloride ER (K-DUR/KLOR-CON M) CR Given 02/24/2018 4:06 PM PRIMING P[employer]DER [employer]MIX BLENDER 40 mEq tablet 40 mEq 40 mEq, Oral, ONCE, On Fri02/24/18 at 1550, For 1 dose, DO NOT CRUSH documented in this encounter Active and Recently Administered Medications Times are shown in PRIMING POWDER PREMIX BLENDER. Scheduled Medication Order 02/22/2018 02/23/2018 02/24/2018 0.9% sodium chloride BOLUS (COMPLETED) 1527 (New Bag - Provider: Tarsha Lange RN)1651 (Stopped - Provider: Tarsha Lange RN) Intravenous, 1,000 mL, ONCE, at 1,000 mL /hr, Administer over 1 Hours, On Fri02/24/18 at 1506, For 1 dose diazepam (VALIUM) injection 5 mg (COMPLETED) 1528 (Given - Provider: Tarsha Lange RN) 5 mg, Intravenous, Administer over 1-4 M inutes, ONCE, 02/24/18 at 1506, For 1 dose, Vesicant. For ordered doses up to 20 mg, give IV Push undiluted. Administer each 5mg over 1 minute. See IV push link for additional instructions. ondansetron (ZOFRAN) injection 8 mg (COMPLETED) 1528 (Given - Provider: Tarsha Lange RN) 8 mg, Intravenous, ONCE, Administer over 2-5 Minutes, 02/24/18 at 1506, For 1 dose, Irritant. For ordered IV doses 0.1-4 mg, give IV Push undiluted over 2-5 minutes. potassium chloride ER (K-DUR/KLOR-CON M) CR tablet 40 mEq (COMPL ETED) 1606 (Given - Provider: Tasrha Lange RN) 40 mEq, Oral, ONCE, Fri02/24/18 at 1550, For 1 dose, DO NOT CRUSH documented in this encounter Care Teams Culvert Installer Relationship Specialty Start Date End Date Clinic, [facility] PCP - General 01/20/18 06/28/[address] [place] [address] documented as of this encounter
--- OUTSIDE RECORDS SUMMARY | 2021-11-10 00:40 | XMS_ITS | Encounter Summary ---
:1980 Author Organization [place] Address [address] [place] [address] Care Team Providers Name Role Phone Clinic, [facility] Primary Care Provide r Encounter Details Date Type Department Care Team Description 07/24/2018 Travel Social History Tobacco Use Types Packs/Day [...] at Date Recorded Female 01/14/2020 10:57 AM HEEL MOLDER documented as of this encounter Plan of Treatment Upcoming Encounters Date Type Specialty Care Team Description 11/15/2021 Office Visit Wound Care Luis Camara DPM [address] [place], [place] [phone] (Wo rk) documented as of this encounter Visit Diagnoses Not on filedocumented in this encounter Additional Health Concerns Assessment Noted Time PHQ-9 Depression Total Score: 10 07/08/2018 1:27 PM CD T documented as of this encounter Care Teams Wood Bucker Relationship Specialty Start Date End Date Clinic, [facility] PCP - General 01/20/18 06/28/21 [facility] [place] [address] documented as of this encounter
--- OUTSIDE RECORDS SUMMARY | 2021-11-10 00:40 | XMS_ITS | Encounter Summary ---
:1980 Author Organization [place] Address [address] [place] [address] Care Team Providers Name Role Phone [facility] Primary Care Provide r Encounter Details Date Type Department Care Team Description 07/08/2018 Travel Social History Tobacco Use Types Packs/Day [...] at Date Recorded Female 01/14/2020 10:57 AM CHIEF EXECUTIVE documented as of this encounter Plan of Treatment Upcoming Encounters Date Type Specialty Care Team Description 11/15/2021 Office Visit Wound Care Luis Camara DPM [address] [place], [place] [address] (Wo rk) documented as of this encounter Visit Diagnoses Not on filedocumented in this encounter Additional Health Concerns Assessment Noted Time PHQ-9 Depression Total Score: 10 07/08/2018 1:27 PM CD T documented as of this encounter Care Teams Chef'S Assistant Relationship Specialty Start Date End Date [facility], [facility] PCP - General 01/20/18 06/28/[address] [place], [place] [address] [address] documented as of this encounter
--- OUTSIDE RECORDS SUMMARY | 2021-11-10 00:40 | XMS_ITS | Encounter Summary ---
:1980 Author Organization [place] Address [address] [place] [address]. 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
--- OUTSIDE RECORDS SUMMARY | 2021-11-10 00:40 | XMS_ITS | Encounter Summary ---
:1980 Author Organization [place] Address [address] [facility] [place] [address] Care Team Providers Name Role Phone Clinic, [facility] Primary Care Provide r Reason for Visit Reason Comments Constipation Derm Problem Encounter Details Date Type Department Care Team Description 07/28/2018 Office Visit [facility] Tatyana Haas, Rash and nonspecific skin eruption (Primary Dx); [facility] [place] PATIENT SERVICES MANAGER STRAIGHT LINE EDGER Drug-induced constipation; [address] MNGI DIGESTIVE Alcohol abuse, continuous [address] [place], [place] [address] [address] [address] [place] [facility] [phone] [place] [address] (Wo rk) Social History Tobacco Use Types [...] at Date Recorded Female 01/14/2020 10:57 AM REVENUE ANALYST documented as of this encounter Last Filed Vital Signs Vital Sign Reading Time Taken Comments Blood Pressure 118/78 07/28/2018 9:13 AM CDT Pulse 71 07/28/2018 9:13 AM CDT Temperature 35.7 ??C (96.3 ??F) 07/28/2018 9:13 AM CDT Respiratory Rate 14 07/28/2018 9:13 AM CDT Oxygen Saturation 98% 07/28/2018 9:13 AM CDT Inhaled Oxygen Concentration - - Weight 89.4 kg (197 lb) 07/28/2018 9:13 AM CDT Height - - Body Mass Index 31.8 07/04/2018 9:43 PM CDT documented in this encounter Patient Instructions Patient InstructionsTatyana Haas APRN CNP - 07/28/2018 9:00 AM CDT -Will get a call from clinic about establishing care. -Refills sent. documented in this encounter Progress Notes Tatyana Haas APRN CNP - 07/28/2018 9:00 AM CDT Subjective Stephani King is a 37 year old female who presents to clinic today for the following health issues: Patient is coming back on follow-up as requested for her Rash. Patient would like to continue coming to [facility] for her medical care moving forward. States that she does not currently have a PCP. Will forward chart to medical office specialist for review. Constipation Improvement with constipation with the use of miralax. States that she has been having soft stools. ?? Duration: couple weeks ?? Description: Frequency of bowel movements: went a couple times yesterday just a tiny bit and today a tiny bit Consistency of stool: soft . ?? Intensity: mild ?? Accompanying signs and symptoms: none Abdominal pain: no Rectal pain: no Blood in stool: no Nausea/vomitting: no ?? History: Similar problems in past: YES ?? Precipitating or alleviating factors: none Medications worsening symptoms: no ?? Therapies tried and outcome: senna Chronic laxative use: no Rash ?? Duration: couple weeks ?? Description Location: upper chest, back and some in the the chin area Itching: mild ?? Intensity: mild ?? Accompanying signs and symptoms: History (similar episodes/previous evaluation): yes ?? Precipitating or alleviating factors: New exposures: None Recent travel: no ?? Therapies tried and outcome: cream, almost completed Patient Active Problem List Diagnosis ??? CARDIOVASCULAR [...] Cystoscopy. Baby Boy born at 20:05; Surgeon: Trino Luciano MD; Location: [facility] OR ??? DISTRICT SALES MANAGER SURGERY ??? ORTHOPEDIC SURGERY ??? THORACIC SURGERY [...] UNIT/GM OINT Apply topically 2 times daily as needed for wound care LP pt 30 g 1 ??? buprenorphine HCl-naloxone HCl (SUBOXONE) 8-2 MG [...] by mouth daily 30 each 0 ??? nicotine (NICORETTE) [address] 1 each (2 mg) inside cheek as needed for smoking cessation 220 tablet 1 ??? nicotine (NICORETTE) [address] [...] external cream Apply topically 2 times daily LP pt. 453.6 g 1 ??? venlafaxine (EFFEXOR-ER) 75 MG 24 hr tablet Take 1 tablet (75 mg) by mouth daily (with breakfast) 30 tablet 0 ??? vitamin B1 (THIAMINE) 100 MG tablet Take 1 tablet (100 mg) by mouth daily 30 tablet 0 ??? vitamin D3 2000 units tablet Take 2,000 Units by mouth daily 30 tablet 0 Reviewed and updated as needed this visit by Provider Review of Systems ROS COMP: Constitutional, HEENT, cardiovascular, pulmonary, gi and gu systems are negative, except as otherwise noted. Objective BP 118/78 Pulse 71 Temp 96.3 ??F (35.7 ??C) Resp 14 Wt 89.4 kg (197 lb) LMP 05/24/2016 (Approximate) SpO2 98% BMI 31.80 kg/m?? Body mass index is 31.8 kg/m??. Physical Exam GENERAL: healthy, alert and no distress RESP: lungs clear to auscultation - no rales, rhonchi or wheezes CV: regular rate and rhythm, normal S1 S2, no S3 or S4, no murmur, click or rub, no peripheral edemaand peripheral pulses strong MS: no gross musculoskeletal defects noted, no edema SKIN: no suspicious lesions; generalized rash to upper chest and back and on the chin area. Rashes are circular with mild and improved erythema around. Mostly scabbed over.Visible scaring noted in the same areas. Diagnostic Test Results: Labs reviewed in Epic Assessment & Plan 1. Rash and nonspecific skin eruption Improving with the triamcinolone cream. Continue using cream and try to avoid picking at the rashes. - triamcinolone (KENALOG) 0.1 % external cream; Apply topically 2 times daily LP pt. Dispense: 453.6g; Refill: 1 2. Drug-induced constipation Improving with miralax. Continue with medication and also increase fiber intake and hydration. 3. Alcohol abuse, continuous Currently sober and still in treatment. Continue recommendations from addiction medicine. - bacitracin 500 UNIT/GM OINT; Apply topically 2 times daily as needed for wound care LP pt Dispense: 30 g; Refill: 1 Tobacco Cessation: reports that she has been smoking cigarettes. She has a 2.50 pack-year smoking history. She has never used smokeless tobacco. Tobacco Cessation Action Plan: Information offered: Patient not interested at this time Patient Instructions -Will get a call from clinic about establishing care. -Refills sent. Return for Follow up with C and PCP as scheduled.. Tatyana Haas APRN CNP [facility] documented in this encounter Plan of Treatment Upcoming Encounters Date Type Specialty Care Team Description 11/15/2021 Office Visit Wound Care Luis Camara DPM [address] [place] [address] (Wo rk) documented as of this encounter Visit Diagnoses Diagnosis Rash and nonspecific skin eruption - Pari trino Rash and other nonspecific skin eruption Drug-induced constipation Other constipation Alcohol abuse, continuous Nondependent alcohol abuse, continuous d rinking behavior documented in this encounter Additional Health Concerns Assessment Noted Time PHQ-9 Depression Total Score: 10 07/08/2018 1:27 PM CD T documented as of this encounter Care Teams Hvac Manager Relationship Specialty Start Date End Date Clinic, [facility] PCP - General 01/20/18 06/28/[address] [place] [address] documented as of this encounter
--- OUTSIDE RECORDS SUMMARY | 2021-11-10 00:41 | XMS_ITS | Encounter Summary ---
:1980 Author Organization [place] Address [address] [place] [address] Care Team Providers Name Role Phone Luis Fernando Magana Primary Care Provider Reason for Visit Reason Onset Date Comments Call Back 08/11/2017 Insurance questions Encounter Details Date Type Department Care Team Description 08/11/2017 Telephone [facility] Edgar Workman Cal l Back (Insurance Clinic [place] questions ) [address] [place] [address] [place] [phone] (Wo rk) Social History Tobacco Use Types Packs/Day Years Used Date Current Every Day Smoker Cigarettes 0.1 10 Smokeless Tobacco: Never Used Comments: 5 cigarettes a day Alcohol Use Standard Drinks/Week Comments Yes 0 (1 standard drink = 0.6 oz pure Stoppe d after found out alcohol) Alcohol Habits Answer Date Recorded How often do you have a drink Not asked 05/31/2020 containing alcohol? How many drinks containing alcohol do Not asked you have on a typical day when you are drinking? How often do you have six or more Not asked 2020 drinks on one occasion? 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 Patient reported that she had called one doctor and they would not be able to see her for a couple of months. Explained that patient had not been seen since April 2017 and she was advised on multiple occassions that she would need to work with her insurance company to locate a new provider. Author offered suggestions of contacting insurance to have them assist her with locating a new provider or to use [employer] to locate a provider. Will forward to [facility] provider for review. Telephone Encounter - Kari Turner - 09/04/2017 12:17 PM CDT Pt called regarding the same issue. Pt states she is still unable to switch her Insurance from [employer] (which [facility] does not accept) to are (which we do accept). Pt stated they can not switch her until the end of 2018. Pt is requesting a call back from [facility] to discuss this further and request bridges of subx till she can switch insurances. Pt# [phone] (okay to leave detailed message) Kari Turner Brick Picker Telephone Encounter - Edgar Workman MD - 08/11/2017 4:59 PM CDT Discussed with patient Advised find [facility] doctor that prescribes Suboxone [place] CONTROL TOWER RADIO OPERATOR - no issues 1 month bridge called in Telephone Encounter - Sherwindave Mark - 08/11/2017 12:42 PM CDT Reason for Call: insurance Detailed comments: pt has [employer] [place] insurance, the clinic don't take this, pt states she call [facility] and was told that she can't change her insurance until the end of the year. Pt want to discuss this with Dr. Workman. Phone Number Patient can be reached at: Home number on file [phone] (home) Best Time: anytime Can we leave a detailed message on this number? YES Call taken on 08/11/2017 at 12:43 PM by Mark Roldan documented in this encounter Plan of Treatment Upcoming Encounters Date Type Specialty Care Team Description 11/15/2021 Office Visit Wound Care Luis Camara, [place] [address] [place] [address] (Wo rk) documented as of this encounter Visit Diagnoses Diagnosis Uncomplicated opioid dependence (H) Opioid type dependence, unspecified Major depressive disorder, recurrent epi sode, moderate (H) Major depressive disorder, recurrent epi sode, moderate documented in this encounter Care Teams Impregnation Operator Relationship Specialty Start Date End Date Lusi Fernando Magana PCP - General Family Practice 12/07/16 01/19/[address] [address] documented as of this encounter
--- OUTSIDE RECORDS SUMMARY | 2021-11-10 00:41 | XMS_ITS | Encounter Summary ---
:1980 Author Organization [place] Address [facility] [place] [address] Care Team Providers Name Role Phone Luis Fernando Magana Primary Care Provider Reason for Visit Reason Onset Date Comments Erroneous encounter-disregard 04/11/2017 Encounter Details Date Type Department Care Team Description 04/10/2017 Office Visit [facility] Edgar Alfredo ERRONEOUS Clinic Ashly Gauthier MD ENCOUNTER--DISREGARD [address] [place] (Primary Dx) [address] [place] [phone] Social History Tobacco Use Types [...] at Date Recorded Female 01/14/2020 10:57 AM SALES AND DISTRIBUTION CLERK documented as of this encounter Progress Notes Edgar Alfredo MD - 04/10/2017 2:30 PM CST This encounter was opened in error. Please disregard. S AND DISTRIBUTION CLERK documented in this encounter Plan of Treatment Upcoming Encounters Date Type Specialty Care Team Description 11/15/2021 Office Visit Wound Care Luis Camara, [place] [address] [place] [address] (Wo rk) documented as of this encounter Visit Diagnoses Diagnosis ERRONEOUS ENCOUNTER--DISREGARD - Primary documented in this encounter Care Teams Manager Meat Relationship Specialty Start Date End Date Luis Fernando Magana PCP - General Family Practice 12/07/16 01/19/[address] [address] documented as of this encounter
--- OUTSIDE RECORDS SUMMARY | 2021-11-10 00:41 | XMS_ITS | Encounter Summary ---
:1980 Author Organization [place] Address [facility] [place] [address] Care Team Providers Name Role Phone Luis Fernando Mgaana Primary Care Provider Reason for Visit Reason Onset Date Comments Refill Request 10/31/2017 buprenorphine (SUBUT EX) 2 MG SUBL sublingual tablet Encounter Details Date Type Department Care Team Description 10/31/2017 Refill [facility] AmerEdgar, Ref ill Request Clinic Ashly VÁSQUEZ (buprenorphine (SUBUTEX) [address] [place] 2 MG SUBL sublingual [address] tablet) [place] [phone] (Wo rk) Social History Tobacco Use Types [...] at Date Recorded Female 01/14/2020 10:57 AM JUNIOR BUSINESS ANALYST documented as of this encounter Miscellaneous Notes Telephone Encounter - Ludmila Vega RN - 10/31/2017 12:50 PM CDT Refused; patient has not been seen since . Taper provider in . Telephone Encounter - Kari Turner - 10/31/2017 12:43 PM CDT buprenorphine (SUBUTEX) 2 MG SUBL sublingual tablet Requested Prescriptions Last Written Prescription Date: 09/04/17 Last Fill Quantity: 46, # refills: 0 Last office visit: 04/24/2017 with prescribing provider: Future Office Visit: Pending Prescriptions Disp Refills ??? buprenorphine (SUBUTEX) 2 MG SUBL sublingual tablet 46 tablet 0 Sig: Take 1 tab 3 times daily for 7 days, then Take 1 tab 2 times daily for 7 days, then Take 1 tab 1 times daily for 7 days, then Take 1/2 tab daily for 8 days There is no refill protocol information for this order documented in this encounter Plan of Treatment Upcoming Encounters Date Type Specialty Care Team Description 11/15/2021 Office Visit Wound Care Luis Camara, [place] [address] [place] [address] (Wo rk) documented as of this encounter Visit Diagnoses Diagnosis Uncomplicated opioid dependence (H) Opioid type dependence, unspecified documented in this encounter Care Teams Accountant Bookkeeper Relationship Specialty Start Date End Date Luis Fernando Magana PCP - General Family Practice 12/07/16 01/19/[address] [address] documented as of this encounter
--- OUTSIDE RECORDS SUMMARY | 2021-11-10 00:41 | XMS_ITS | Encounter Summary ---
:1980 Author Organization [place] Address [facility] [place] [address] Care Team Providers Name Role Phone Luis Fernando Magana Primary Care Provider Reason for Visit Reason Comments RECHECK Encounter Details Date Type Department Care Team Description 01/16/2017 Office Visit [facility] Mecca Cyr S/P e mergency hysterectomy (Primary Dx); [facility] MD Christopher Slow transit constipation; [place] [address] RONNIE Wound infection [address] [place] [employer] [address] [facility] [address] [place], [place] (Work) [address] [phone] Social History Tobacco Use Types Packs/Day Years [...] at Date Recorded Female 01/14/2020 10:57 AM STEAM GIGGER documented as of this encounter Last Filed Vital Signs Vital Sign Reading Time Taken Comments Blood Pressure 119/78 01/16/2017 1:31 PM STEAM GIGGER Pulse 87 01/16/2017 1:31 PM STEAM GIGGER Temperature - - Respiratory Rate - - Oxygen Saturation - - Inhaled Oxygen Concentration - - Weight - - Height - - Body Mass Index - - documented in this encounter Progress Notes Mecca Cyr MD - 01/16/2017 1:30 PM CST [facility] Visit CC: Post op visit S: 36 year old [id number] 1 month s/p hysterectomy due to bleeding with placenta acreta. complicated by history of substance abuse on subutex, hepatitis C and poor obstetric history. Overall doing well since procedure, but does have concerns about bladder pain and voiding issues. Cannot really elaborate, denies dysuria, able to empty completely but feels different. Also having constipation, but partner is in room and she prefers not to discuss with him in room, or have him leave room. Tried some powder previously,but didn't feel was helpful. Otherwise pain controlled. Baby doing well in NICU per her report. Would like disability forms filled out today. O: BP 119/78 Pulse 87 LMP 05/24/2016 (Approximate) General: No distress Abdomen: Soft, non-tender, non-distended, no masses Incision: Erythema an induration at top 2cm of vertical midline incision. Remainder of incision wellhealed and non-tender A:36 year old here for post op check from hysterectomy P: Keflex rx for cellulitis UA/UC Reviewed normal bladder issues following hysterectomy, no signs of infection Miralax rx Discussed disability paperwork, will fill out through 8 weeks postop and needs to have PCP renew at that time Mecca Cyr MD FACOG M GIGGER documented in this encounter Nursing Notes Antonella Castro CMA - 01/16/2017 1:30 PM CST Chief Complaint Patient presents with ??? 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
--- OUTSIDE RECORDS SUMMARY | 2021-11-10 00:41 | XMS_ITS | Encounter Summary ---
:1980 Author Organization [place] Address [address] [facility] [place] [address] Care Team Providers Name Role Phone Luis Fernando Magana Primary Care Provider Reason for Visit Reason Onset Date Comments Refill Request 03/05/2017 buprenorphine (SUBUT EX) 2 MG SUBL Encounter Details Date Type Department Care Team Description 03/05/2017 Refill [facility] AmEdgar karimi, Ref ill Request Clinic Ashly VÁSQUEZ (buprenorphine (SUBUTEX) [address] [place] 2 MG SUBL) [address] [place] [address] [phone] (Wo rk) Social History Tobacco Use Types [...] at Date Recorded Female 01/14/2020 10:57 AM OIL WELL SERVICES FIELD SUPERVISOR documented as of this encounter Miscellaneous Notes Telephone Encounter - Edgar Alfredo MD - 03/06/2017 2:21 PM CST Spoke to patient Bridge called in WELL SERVICES FIELD SUPERVISOR Telephone Encounter - Santosh Pyle RN - 03/06/2017 1:03 PM CST Pt called back. Pt has Appt scheduled for 03/31/17 at 2:45 Pt explained why she has not been able to make Appt's. Pt's water broke three months early and Pt was hospitalized for those 3 months, Child was born December 24, 11 weeks early. Pt was frequently at the hospital with baby until baby came home last . Pt had and had placenta acreeda. Pt's insurance is not accepted at [facility] and but will be changed on March 20. Pt's insurance is not covered in clinic and pt will be switching to are next month Will forward to Dr. Alfredo. Santosh Pyle RN WELL SERVICES FIELD SUPERVISOR Telephone Encounter - Santosh Pyle RN - 03/06/2017 11:56 AM CST Dredge Captain attempted to call pt, No answer. LVM for Pt to call clinic back and schedule an Appt at [phone]. Santosh Pyle RN WELL SERVICES FIELD SUPERVISOR Telephone Encounter - Edgar Alfredo MD - 03/06/2017 10:58 AM CST No refill until appointment is made WELL SERVICES FIELD SUPERVISOR Telephone Encounter - Santosh Pyle RN - 03/05/2017 11:16 AM CST buprenorphine (SUBUTEX) 2 MG SUBL sublingual tablet Controlled Substance Refill Request Last refill: 01/03/17 Last clinic visit: 10/10/16 Next appt: none scheduled Documentation in problem list reviewed: Yes Processing: call/fax RX [place] ([place]) reviewed: Rx for Oxycodone 10 and 20 mg tabs on 12/27/16. [place]: [email or web address] Pt had Appt's scheduled on 01/23/17, 12/23/16, 11/26/16 and didn't make it to any of these Appt's Last Appt was on 10/10/16. No Appt's scheduled. Dr. Alfredo would you like to see Pt in the clinic again? Santosh Pyle RN WELL SERVICES FIELD SUPERVISOR Telephone Encounter - Dora Merchant - 03/05/2017 10:40 AM CST Last Written Prescription Date: 01/03/17 Last Fill Quantity: 100, # refills: 0 Last Office Visit with [facility], [facility] or [facility] prescribing provider: 10/13/16 Future Office Visit: Requested Prescriptions Pending Prescriptions Disp Refills ??? buprenorphine (SUBUTEX) 2 MG SUBL sublingual tablet 100 tablet 0 Sig: Place 1 tablet (2 mg) under the tongue 5 times daily There is no refill protocol information for this order WELL SERVICES FIELD SUPERVISOR documented in this encounter Plan of Treatment Upcoming Encounters Date Type Specialty Care Team Description 11/15/2021 Office Visit Wound Care Luis Camara, [place] [address] [place], [place] [phone] (Wo rk) documented as of this encounter Visit Diagnoses Diagnosis Uncomplicated opioid dependence (H) Opioid type dependence, unspecified documented in this encounter Care Teams Hook Tender Relationship Specialty Start Date End Date Luis Fernando Magana PCP - General Family Practice 12/07/16 01/19/[address] [address] documented as of this encounter
--- OUTSIDE RECORDS SUMMARY | 2021-11-10 00:41 | XMS_ITS | Encounter Summary ---
:1980 Author Organization [place] Address [address] [facility] [place] [address] Care Team Providers Name Role Phone Luis Fernando Magana Primary Care Provider Reason for Visit Reason Onset Date Comments Medication Request 04/29/2017 call in subutex Encounter Details Date Type Department Care Team Description 04/29/[address] [facility] Edgar Alfredo, 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 Name of the pharmacy and phone number for the current request: [facility] in [place] [phone] Name of the medication requested: subutex Other request: Please call in subutex that was ordered 04/24/[address] Alfredo. Per patient and pharmacy it was never called in. Thanks. Can we leave a detailed message on this number? YES Phone number patient can be reached at: Home number on file [phone] (home) Best Time: anytime Call taken on 04/29/2017 at 3:56 PM by Vickie Espinal documented in this encounter Plan of Treatment Upcoming Encounters Date Type Specialty Care Team Description 11/15/2021 Office Visit Wound Care Luis Camara DPM [address] [place] [address] (Wo rk) documented as of this encounter Visit Diagnoses Not on filedocumented in this encounter Care Teams Engine Manager Relationship Specialty Start Date End Date Luis Fernando Magana PCP - General Family Practice 12/07/16 01/19/18 [place] [address] [place] [address] documented as of this encounter
--- OUTSIDE RECORDS SUMMARY | 2021-11-10 00:41 | XMS_ITS | Encounter Summary ---
:1980 Author Organization [facility] Address [address] [place] [address]. [place] [address] Care Team Providers Name Role Phone Luis Fernando Magana Primary Care Provider Encounter Details Date Type Department Care Team Description 01/20/2017 Encounter Social History Tobacco Use Types Packs/Day Years [...] at Date Recorded Female 01/14/2020 10:57 AM SOAPSTONER documented as of this encounter Miscellaneous Notes Note - Marycarmen Mohamud RN - 01/20/2017 2:10 PM CST This note was copied from a baby's chart. Phone call made to [phone] in attempt to reach mother Stephani regarding breast milk and breast feeding. There was a voicemail. I left a message for the mother to call me regarding an update. No patient information revealed, only to contact myself at the NICU phone number. It appears that no breast milk has been received from home. Donor milk will end when baby reaches 34 wks. STONER documented in this encounter Plan of Treatment Upcoming Encounters Date Type Specialty Care Team Description 11/15/2021 Office Visit Wound Care Luis Camara, [place] [address] [place] [address] (Wo rk) documented as of this encounter Visit Diagnoses Not on filedocumented in this encounter Care Teams Patternator Relationship Specialty Start Date End Date Luis Fernando Magana PCP - General Family Practice 12/07/16 01/19/[address] [address] documented as of this encounter
--- OUTSIDE RECORDS SUMMARY | 2021-11-10 00:41 | XMS_ITS | Encounter Summary ---
:1980 Author Organization [place] Address [address] [facility] 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 Documentation in problem list reviewed: Yes Processing: Fax Rx to pt's pharmacy RX [place] program ([place]) reviewed: ROBOT PROGRAMMER reviewed- Pt received 2 prescriptions for oxycodone frommindy Le[facility] profile: [email or web address] Thank you! Laura Fried RN CT ORIENTED PROGRAMMER Telephone Encounter - Dora Merchant - 01/02/2017 1:44 PM CST Reason for Call: Other prescription Detailed comments: Pt states that she discharged from the hospital on 12/27/16, and would like a refill on Subutex Phone Number Patient can be reached at: Home number on file [phone] (home) Best Time: Anytime Can we leave a detailed message on this number? YES Call taken on 01/02/2017 at 1:[address] ORIENTED PROGRAMMER documented in this encounter Plan of Treatment Upcoming Encounters Date Type Specialty Care Team Description 11/15/2021 Office Visit Wound Care Luis Camara DPM [address] [place] [address] (Wo rk) documented as of this encounter Visit Diagnoses Diagnosis Uncomplicated opioid dependence (H) Opioid type dependence, unspecified documented in this encounter Care Teams Medical Transcription Editor Relationship Specialty Start Date End Date Luis Fernando Magana PCP - General Family Practice 12/07/16 01/19/18 [place] [id number] documented as of this encounter
--- OUTSIDE RECORDS SUMMARY | 2021-11-10 00:41 | XMS_ITS | Encounter Summary ---
:1980 Author Organization [place] Address [address] [facility] [address] [facility] [place] [address] Care Team Providers Name Role Phone Luis Fernando Magana Primary Care Provider Reason for Visit Reason Comments Medication Refill WELLBUTRIN SR 150 MG 12 hr t ablet Encounter Details Date Type Department Care Team Description 05/26/[address] [facility] Edgar Alfredo, Med ication Refill Clinic Ashly VÁSQUEZ (WELLBUTRIN SR 150 MG [address] [place] hr tablet) [address] [place] [phone] (Wo rk) Social History [...] at Date Recorded Female 01/14/2020 10:57 AM FINANCE LECTURER documented as of this encounter Miscellaneous Notes Telephone Encounter - Line, Santosh, RN - 05/27/2017 8:50 AM CDT Routing refill request to provider for review/approval because: Labs not current: PHQ9 Santosh Pyle RN Telephone Encounter - Mark Roldan - 05/26/2017 2:29 PM CDT Last Written Prescription Date: 01/03/2017 Last Fill Quantity: 60, # refills: 1 Last office visit: 04/24/2017 with prescribing provider: Future Office Visit: . Requested Prescriptions Pending Prescriptions Disp Refills ??? buPROPion (WELLBUTRIN SR) 150 MG 12 hr tablet [Pharmacy Med Name: BUPROPION HCL ER (SR) 150MG TB12] 60 tablet 1 Sig: TAKE ONE TABLET BY MOUTH TWICE A DAY SSRIs Protocol Failed 05/26/2017 2:28 PM Failed - PHQ-9 score less than 5 in past 6 months Please review last PHQ-9 score. Failed - No positive test in last 12 months Passed - Medication is Bupropion If the medication is Bupropion (Wellbutrin), and the patient is taking for smoking cessation; OK torefill. Passed - Patient is age 18 or older Passed - No active on record Passed - Recent (6 mo) or future (30 days) visit within the authorizing provider's specialty Patient had office visit in the last 6 months or has a visit in the next 30 days with authorizing provider or within the authorizing provider's specialty. See Patient Info tab in inbasket, or Choose Columns in Meds & Orders section of the refill encounter. Telephone Encounter - Mark Roldan - 05/26/2017 2:25 PM CDT Pt want med refill today as she's completley out. documented in this encounter Plan of Treatment Upcoming Encounters Date Type Specialty Care Team Description 11/15/2021 Office Visit Wound Care Luis Camara, [place] [address] [place] [address] (Wo rk) documented as of this encounter Visit Diagnoses Diagnosis Major depressive disorder, recurrent epi sode, moderate (H) Major depressive disorder, recurrent epi sode, moderate Uncomplicated opioid dependence (H) Opioid type dependence, unspecified documented in this encounter Care Teams Balance Wheel Arm Burnisher Relationship Specialty Start Date End Date Luis Fernando Magana PCP - General Family Practice 12/07/16 01/19/18 [place] [id number] documented as of this encounter
--- OUTSIDE RECORDS SUMMARY | 2021-11-10 00:41 | XMS_ITS | Encounter Summary ---
:1980 Author Organization [place] Address [facility] [place] [address] Care Team Providers Name Role Phone Luis Fernando Magana Primary Care Provider Reason for Visit Reason Comments Addiction Problem Encounter Details Date Type Department Care Team Description 04/24/2017 Office Visit [facility] Edgar Alfredo Uncomplic ated opioid Clinic Ashly Gauthier MD dependence (H) [address] [place] [address] [place] [phone] Social History Tobacco Use [...] at Date Recorded Female 01/14/2020 10:57 AM ACCOUNT REVIEW SPECIALIST documented as of this encounter Last Filed Vital Signs Vital Sign Reading Time Taken Comments Blood Pressure 112/66 04/24/2017 4:44 PM ACCOUNT REVIEW SPECIALIST Pulse 86 04/24/2017 4:44 PM ACCOUNT REVIEW SPECIALIST Temperature 37 ??C (98.6 ??F) 04/24/2017 4:44 PM ACCOUNT REVIEW SPECIALIST Respiratory Rate 12 04/24/2017 4:44 PM ACCOUNT REVIEW SPECIALIST Oxygen Saturation 100% 04/24/2017 4:44 PM ACCOUNT REVIEW SPECIALIST Inhaled Oxygen Concentration - - Weight 82.1 kg (181 lb) 04/24/2017 4:44 PM ACCOUNT REVIEW SPECIALIST Height - - Body Mass Index 29.21 12/07/2016 2:19 PM CDT documented in this encounter Patient Instructions Patient InstructionsAmer, Edgar Gauthier MD - 04/24/2017 4:15 PM CST Continue your Buprenorphine 2 mg films/tabs 4 times daily Follow up 2 month A prescription has been sent to your pharmacy of choice. If a prior authorization is required it maytake several days to get your medication. Please make sure your pharmacy had your contact information so they can contact you when it is ready to bulk picker You are at risk for overdose ( including risk of ) with return to use of opioids after a periodof abstinence because your tolerance will have decreased dramatically. It is strongly recommended that you abstain from alcohol, benzodiazepines (Xanax Valium, Klonipin) ,THC, opioids and other drugs of abuse. Use of these substances increases your risk of relapse for opioids. Using these substances with Buprenorphine also incresaes your risk of overdose/ (especially alcohol/benzodiazepines). You are encouraged to have some type of recovery program in addition to medication treatment. Medication alone is generally not enough to lead to fci recovery. This may include having some type of sober network, avoiding isolating, avoiding triggers (people, places, things you associate with using opioids). Such supports may include Alcoholics Anonymous, Narcotics anonymous or other self help organizations as well as counseling. We can help provide resources to these services. Narcan kit prescriptions are available if you do not have one. The addiction medicine clinic number is [phone]. If you cannot make your appointment please call the office and reschedule immediately. If you are out of medication a bridge can be sent to your pharmacy to last until the date of your rescheduled appointment. Our clinic is open from Friday-Friday 0800-4:30pm and there is not an FINISHER ACCORDION after hours service. If medical care is needed after hours or on the weekend you will need to contact your primary care physician or go to an Urgent Care or ER. MyChart messages and telephone calls from patients are taken care of by the nursing team within 24 business hours if received between Friday 8am - Friday 4:30pm. Therefore if a refill/bridge is needed it is important to call in advance so you do not run out of medications. [facility] [place] does not accept [employer] or [employer] assistance insurance. UNT REVIEW SPECIALIST documented in this encounter Progress Notes Edgar Alfredo MD - 04/24/2017 4:15 PM CST SUBJECTIVE: Stephani King is a 35 year old female who presents to clinic today for the following health issues: OPIOID USE DISORDER - SUBOXONE FOLLOW UP: CURRENT DOSE: 10 MG DAILY HERE WITH FATHER OF HER BABY AND HER BABY BORN IN December WAS 29 WEEKS GESTATION; JUST OVER 2 LBS. DID WELL IN NICU; CONTINUES TO DO WELL HAD LEFTOVER SUBUTEX SHE DIDN'T USE HER SUPPLY IN THE HOSPITAL STILL PREFERS SUBUTEX OVER SUBOXONE DISCUSSED BEGINNING GRADUAL TAPER WILL REDUCE TO 8 MG PER DAY RE-CHECK 2 MONTHS NEEDS TO CHANGE INSURANCE Status since last visit: Since last visit patient has been: stable. Intensity: ?? There has been: no craving. ?? Suboxone Dose: adequate. Progression of Symptoms: ?? Cues to use and relapse triggers: ?? Recovery program has been: ignored. Accompanying Signs & Symptoms: ?? Side Effects: none. Sobriety: ?? Status: no use since last visit. ?? Drug Screen: obtained. Precipitating factors: ?? Triggers have been: mild. Alleviating factors: ?? Contact with sponsor has been: no sponsor. ?? Family and support system has been: helpful. Other Therapies Tried : ?? Patient has been going to recovery meetings:not at all. [place] Board [employer]acy Data Base Reviewed: YES; NO ISSUES; CHECKED 04/24/17 Problem list and histories reviewed & adjusted, as indicated. Additional history: as documented Patient Active Problem List Diagnosis ??? CARDIOVASCULAR [...] delivered, current hospitalization ??? S/P emergency hysterectomy Past Surgical History: Procedure Laterality Date ??? BREAST SURGERY ABcess drained ??? SECTION ??? SECTION, IMMEDIATE HYSTERECTOMY, COMBINED N/A 12/24/2016 Procedure: COMBINED SECTION, IMMEDIATE HYSTERECTOMY; Section Immediate Hysterectomy, Bilateral Salpingectomy and Cystoscopy. Baby Boy born at 20:05; Surgeon: So Luciano MD; Location: [facility] OR ??? HYDROTECHNICAL SPECIALIST SURGERY ??? ORTHOPEDIC SURGERY ??? THORACIC SURGERY Social History Substance Use Topics ??? Smoking status: Current Every Day Smoker Packs/day: 0.10 Years: 10.00 Types: Cigarettes ??? Smokeless tobacco: Never Used Comment: 5 cigarettes a day ??? Alcohol use Yes Comment: Stopped after found out Family History Problem Relation Age of Onset ??? Depression Mother ??? Psychotic Disorder Mother ??? Thyroid Disease Mother ??? Depression Brother ??? Depression Brother ??? Asthma Son Current Outpatient Prescriptions Medication Sig Dispense Refill ??? buprenorphine (SUBUTEX) 2 MG SUBL sublingual tablet Place 1 tablet (2 mg) under the tongue 4 times daily 112 tablet 1 ??? polyethylene glycol (MIRALAX) powder Take 17 g (1 capful) by mouth daily 510 g 1 ??? cephALEXin (KEFLEX) 500 MG capsule Take 1 capsule (500 mg) by mouth 2 times daily 14 capsule 0 ??? WELLBUTRIN SR 150 MG 12 hr tablet Take 1 tablet (150 mg) by mouth 2 times daily 60 tablet 1 ??? buprenorphine (SUBUTEX) 2 MG SUBL sublingual tablet Place 1 tablet (2 mg) under the tongue 5 times daily 100 tablet 0 ??? ferrous sulfate (IRON) 325 (65 FE) MG tablet Take 1 tablet (325 mg) by mouth daily (with breakfast) 30 tablet 2 ??? acetaminophen (TYLENOL) 325 MG tablet Take 2 tablets (650 mg) by mouth every 4 hours as needed for mild pain 60 tablet 0 ??? oxyCODONE HCl (ROXICODONE) 20 MG TABS immediate release tablet Take 20 mg by mouth every 6 hoursas needed 28 tablet 0 ??? oxyCODONE IR (ROXICODONE) 10 MG tablet Take 1-2 tablets (10-20 mg) by mouth every 6 hours as needed for breakthrough pain 56 tablet 0 ??? senna-docusate (SENOKOT-S;PERICOLACE) 8.6-50 MG per tablet Take 1-2 tablets by mouth 2 times daily 60 tablet 0 ??? buPROPion (WELLBUTRIN SR) 150 MG 12 hr tablet Take 1 tablet (150 mg) by mouth daily 60 tablet 0 ??? ibuprofen (ADVIL/MOTRIN) 600 MG tablet Take 1 tablet (600 mg) by mouth every 6 hours as needed for moderate pain 30 tablet 1 ??? ACETAMINOPHEN PO ??? omeprazole 20 MG tablet Take 1 tablet (20 mg) by mouth daily 30 tablet 1 ??? diphenhydrAMINE (BENADRYL ALLERGY) 25 MG tablet Take 1 tablet (25 mg) by mouth every 8 hours as needed for itching or allergies 60 tablet 1 ??? folic acid (FOLVITE) 1 MG tablet Take 1 tablet (1 mg) by mouth daily 100 tablet 3 ??? buprenorphine HCl-naloxone HCl (SUBOXONE) 2-0.[address] 1 Film under the tongue 5 times daily 25 Film 0 ??? venlafaxine (EFFEXOR-XR) 150 MG 24 hr capsule Take 2 capsules (300 mg) by mouth daily 60 capsule1 ??? DiphenhydrAMINE HCl (BENADRYL ALLERGY PO) Take by mouth as needed ??? levothyroxine (SYNTHROID, LEVOTHROID) 125 MCG tablet Take 1 tablet by mouth daily ??? [DISCONTINUED] VITAMINS PO Take by mouth. No Known Allergies Labs reviewed in EPIC OBJECTIVE: BP 112/66 Pulse 86 Temp 98.6 ??F (37 ??C) (Oral) Resp 12 Wt 181 lb (82.1 kg) SpO2 100% BMI 29.21 kg/m2 Body mass index is 29.21 kg/(m^2). ROS: Constitutional, HEENT, cardiovascular, pulmonary, gi and gu systems are negative, except as otherwise noted. EXAM: GENERAL APPEARANCE: healthy, alert and no distress EYES: Eyes grossly normal to inspection, PERRL and conjunctivae and sclerae normal NEURO: Normal strength and tone, mentation intact and speech normal PSYCH: mentation appears normal and affect normal/bright MENTAL STATUS EXAM: Appearance/Behavior: No apparent distress Speech: Normal Mood/Affect: normal affect Insight: Adequate Diagnostic Test Results: Results for orders placed or performed in visit on 04/24/17 Urine Drugs of Abuse Screen Panel 13 Result Value Ref Range Cannabinoids (82-sfg-3-cofgjuw-3-OIE) Not Detected NDET^Not Detected ng/mL Phencyclidine (Phencyclidine) Not Detected NDET^Not Detected ng/mL Cocaine (Benzoylecgonine) Not Detected NDET^Not Detected ng/mL Methamphetamine (d-Methamphetamine) Not Detected NDET^Not Detected ng/mL Opiates (Morphine) Not Detected NDET^Not Detected ng/mL Amphetamine (d-Amphetamine) Not Detected NDET^Not Detected ng/mL Benzodiazepines (Nordiazepam) Not Detected NDET^Not Detected ng/mL Tricyclic Antidepressants (Desipramine) Not Detected NDET^Not Detected ng/mL Methadone (Methadone) Not Detected NDET^Not Detected ng/mL Barbiturates (Butalbital) Not Detected NDET^Not Detected ng/mL Oxycodone (Oxycodone) Not Detected NDET^Not Detected ng/mL Propoxyphene (Norpropoxyphene) Not Detected NDET^Not Detected ng/mL Buprenorphine (Buprenorphine) Detected, Abnormal Result (A) NDET^Not Detected ng/mL 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 FOR NURSING HOME USE OF HIGH RISK MEDICATION High Risk Drug Monitoring? YES Drug being monitored: Suboxone Reason for drug: Opioid Use Disorder What is being monitored?: Dosage, Cravings, Trigger, side effects, and continued abstinence. PLAN: ICD-10-CM 1. Opiate dependence (H) F11.20 CANCELED: Buprenorphine Qual Urine 2. Uncomplicated opioid dependence (H) F11.20 buprenorphine (SUBUTEX) 2 MG SUBL sublingual tablet Urine Drugs of Abuse Screen Panel 13 CANCELED: Drug abuse screen (NL, RW) MEDICATIONS: Orders Placed This Encounter Medications ??? buprenorphine (SUBUTEX) 2 MG SUBL sublingual tablet Sig: Place 1 tablet (2 mg) under the tongue 4 times daily Dispense: 112 tablet Refill: 1 - Continue other medications without change FUTURE APPOINTMENTS: - Follow-up visit in 2 MONTHS Edgar Alfredo MD [facility] documented in this encounter Nursing Notes Sabina Mckay CMA - 04/24/2017 4:15 PM CST Chief Complaint Patient presents with ??? Addiction Problem Initial BP 112/66 Pulse 86 Temp 98.6 ??F (37 ??C) (Oral) Resp 12 Wt 181 lb (82.1 kg) SpO2 100% BMI 29.21 kg/m2 Estimated body mass index is 29.21 kg/(m^2) as calculated from the following: Height as of 17: 5' 6 (1.676 m). Weight as of this encounter: 181 lb (82.1 kg). Medication Reconciliation: complete Sabina Mckay CMA UNT REVIEW SPECIALIST documented in this encounter Plan of Treatment Upcoming Encounters Date Type Specialty Care Team Description 11/15/2021 Office Visit Wound Care Luis Camara DPM [address] [place] [address] (Wo rk) documented as of this encounter Procedures Procedure Name Priority Date/Time Associated Diagnosis Comme nts URINE DRUGS OF Routine 04/24/2017 5:16 PM Uncomplicated opioid Results for this ABUSE SCREEN PANEL ACCOUNT REVIEW SPECIALIST dependence (H) procedu re are in 13 the results section. documented in this encounter Results (ABNORMAL) Urine Drugs of Abuse Screen Panel 13 (04/24/2017 5:16 PM ACCOUNT REVIEW SPECIALIST) [facility] Method Time Signature Cannabinoids Not Detected NDET^Not 04/24/2017 [facility] (61-rpd-3-carbox Detected 6:02 PM ACCOUNT REVIEW SPECIALIST y-9-THC) ng/mL Comment: Cutoff for a negative cannabino id is 50 ng/mL or less. Phencyclidine Not Detected NDET^Not Detected 04/24/2017 6:02 PM [facility] (Phencyclidine) ng/mL ACCOUNT REVIEW SPECIALIST Comment: Cutoff for a negative PCP is 25 ng/mL or less. Cocaine (Benzoylecgonine) Not Detected NDET^Not Detected 0 04/24/2017 6:02 PM [facility] ng/mL ACCOUNT REVIEW SPECIALIST Comment: Cutoff for a negative cocaine i s 150 ng/ml or less. Methamphetamine Not Detected NDET^Not 04/24/2017 6:02 PM [facility] (d-Methamphetamine) Detected ng/mL ACCOUNT REVIEW SPECIALIST Comment: Cutoff for a negative methamphe tamine is 500 ng/ml or less. Opiates (Morphine) Not Detected NDET^Not Detected 04/25/19 18 6:02 PM ACCOUNT REVIEW SPECIALIST [facility] ng/mL Comment: Cutoff for a negative opiate is 100 ng/ml or less. Amphetamine Not Detected NDET^Not Detected 04/24/2017 6:02 P M [facility] (d-Amphetamine) ng/mL ACCOUNT REVIEW SPECIALIST Comment: Cutoff for a negative amphetami ne is 500 ng/mL or less. Benzodiazepines Not Detected NDET^Not Detected 04/24/2017 6: 02 PM [facility] (Nordiazepam) ng/mL ACCOUNT REVIEW SPECIALIST Comment: Cutoff for a negative benzodiaz epine is 150 ng/ml or less. Tricyclic Antidepressants Not Detected NDET^Not Detected 0 04/24/2017 6:02 PM LAB (Desipramine) ng/mL ACCOUNT REVIEW SPECIALIST Comment: Cutoff for a negative tricyclic antidepressant is 300 ng/ml or less. Methadone (Methadone) Not Detected NDET^Not Detected 6:02 PM [facility] ng/mL ACCOUNT REVIEW SPECIALIST Comment: Cutoff for a negative methadone is 200 ng/ml or less. Barbiturates Not Detected NDET^Not Detected 04/24/2017 6:02 PM [facility] (Butalbital) ng/mL ACCOUNT REVIEW SPECIALIST Comment: Cutoff for a negative barbituat e is 200 ng/ml or less. Oxycodone (Oxycodone) Not Detected NDET^Not Detected 6:02 PM [facility] ng/mL ACCOUNT REVIEW SPECIALIST Comment: Cutoff for a negative Oxycodone is 100 ng/mL or less. Propoxyphene Not Detected NDET^Not Detected 04/24/2017 6:02 PM [facility] (Norpropoxyphene) ng/mL ACCOUNT REVIEW SPECIALIST Comment: Cutoff for a negative propoxyph tina is 300 ng/ml or less Buprenorphine Detected, NDET^Not 04/24/2017 6:02 PM [facility] (Buprenorphine) Abnormal Result Detected ng/mL ACCOUNT REVIEW SPECIALIST (A) Comment: Cutoff for a positive buprenorphine is g reater than 10 ng/ml. This is an unconfirmed screening result to be used for medical purposes only. Order [id number] for confirmation or indivi dual confirmation tests to [facility]. Specimen Anatomical Collection Method Collection Time Receive d Time (Source) Location / / Volume Laterality Urine specimen 04/24/2017 5:16 PM 018 5:17 (specimen) ACCOUNT REVIEW SPECIALIST PM ACCOUNT REVIEW SPECIALIST Edgar Alfredo MD LAB - URINE ORDERABLES Performing Organization Address City/State/[place] [address] [facility] [address] [address] [facility] documented in this encounter Visit Diagnoses Diagnosis Uncomplicated opioid dependence (H) Opioid type dependence, unspecified documented in this encounter Care Teams Media Analyst Relationship Specialty Start Date End Date Luis Fernando Magana PCP - General Family Practice 12/07/16 01/19/[address] [address] documented as of this encounter
--- OUTSIDE RECORDS SUMMARY | 2021-11-10 00:41 | XMS_ITS | Encounter Summary ---
:1980 Author Organization [place] Address [facility] 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 Please disregard. LAR SPLITTING MACHINE TENDER documented in this encounter Plan of Treatment Upcoming Encounters Date Type Specialty Care Team Description 11/15/2021 Office Visit Wound Care Luis Camara, [place] [address] [place] [address] (Wo rk) documented as of this encounter Visit Diagnoses Diagnosis ERRONEOUS ENCOUNTER--DISREGARD - Primary documented in this encounter Care Teams Marine Pilot Relationship Specialty Start Date End Date Luis Fernando Magana PCP - General Family Practice 12/07/16 01/19/[address] [address] documented as of this encounter
--- OUTSIDE RECORDS SUMMARY | 2021-11-10 00:41 | XMS_ITS | Encounter Summary ---
:1980 Author Organization [place] Address [facility]0 [facility] [place] [address] Care Team Providers Name Role Phone Luis Fernando Magana Primary Care Provider Reason for Visit Reason Onset Date Comments Forms 03/12/2017 extended leave Encounter Details Date Type Department Care Team Description 03/12/2017 Telephone [facility] Women's Nurse, p Whs Forms (extended leave) Clinic [place] [address] [facility] Professional Bldg [facility] [address] [place], [place] [phone] Social History Tobacco Use Types Packs/Day Years [...] at Date Recorded Female 01/14/2020 10:57 AM ACCOUNTANT 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 Cyr approved 3 more months of assistance for Stephani. Form was signed and faxed back to [facility].Scanned into chart. Copy emailed to patient. UNTANT SUPERVISOR Telephone Encounter - Gregoria Villanueva RN - 03/12/2017 12:41 PM CST Spoke with Stephani who is a couple months and had a premature baby that was in NICU here andthen transferred to [facility] to be closer to home. Her baby is home now and she is not ready to go back to work. She is getting assistance with housing, food, and monthly funding. She says that the [facility] MD to sign a form stating that the patient had a complicated post- period in order for these services to be continued. Patient will email them to clinic for review. UNTANT SUPERVISOR documented in this encounter Plan of Treatment Upcoming Encounters Date Type Specialty Care Team Description 11/15/2021 Office Visit Wound Care Luis Camara, [place] [address] [place], [place] [address] (Wo rk) documented as of this encounter Visit Diagnoses Not on filedocumented in this encounter Care Teams Auction Block Clerk Relationship Specialty Start Date End Date Luis Fernando Magana PCP - General Family Practice 12/07/16 01/19/[address] [address] documented as of this encounter
--- OUTSIDE RECORDS SUMMARY | 2021-11-10 00:41 | XMS_ITS | Encounter Summary ---
:1980 Author Organization [place] Address [address] [facility] [place] [address] Care Team Providers Name Role Phone Luis Fernando Magana Primary Care Provider Reason for Visit Reason Onset Date Comments Medication Request 07/01/2017 Subutex bridge Encounter Details Date Type Department Care Team Description 07/01/2017 Telephone [facility] Edgar Alfredo, [facility] ication Request Clinic Ashly VÁSQUEZ (Subutex bridge ) [address] [place] [address] [place] [phone] (Wo rk) Social History [...] at Date Recorded Female 01/14/2020 10:57 AM RN PACU documented as of this encounter Miscellaneous Notes Telephone Encounter - Ludmila Vega RN - 07/02/2017 10:51 AM CDT Called into patients pharmacy. Ludmila Vega RN on 07/02/2017 at 10:52 AM Telephone Encounter - Edgar Alfreod MD - 07/02/2017 10:44 AM CDT Refill ordered Please call in Advise her to make appointment as she must be seen within 1 month before any further prescriptions Thanks Telephone Encounter - Ludmila Vega RN - 07/01/2017 3:38 PM CDT Refill for: Subutex Last Appointment: 04.24.2017 Next Appointment: Will not schedule followup until insurance gets switched to [employer] No Shows/Cancellations since last appointment: None Last Refill (date and amount/how many days): 04.24.2017 112 tabs/28 days 1 RF Most Recent UDS results: 04.24.2017 - negative for all substances, positive for BUP ROOFER VINYL COATING reviewed and summarized below: 05.27.2017 - Subutex - 112/28 days (refill from script on 04.24.2017) Ludmila Vega RN on 07/01/2017 at 3:47 PM Telephone Encounter - Mark Roldan - 07/01/2017 3:29 PM CDT Reason for Call: Medication or medication refill: Do you use a [facility]? Name of the pharmacy and phone number for the current request: [facility] in [place] tel: [phone] Name of the medication requested: Subutex 2 mg bridge Other request: pt called she's in the process of getting her insurance change from [employer] (clinic don't take [employer] [place]) to [employer]. Pt stated that she's out of medication and would like Dr. Alfredo to bridge her1 month until her insurance gets change. No appt schedule until insurance is change. Can we leave a detailed message on this number? YES Phone number patient can be reached at: Home number on file [phone] (home) Best Time: Anytime Call taken on 07/01/2017 at 3:29 PM by Mark Roldan documented in this encounter Plan of Treatment Upcoming Encounters Date Type Specialty Care Team Description 11/15/2021 Office Visit Wound Care Luis Camara, [place] [address] [place] [address] (Wo rk) documented as of this encounter Visit Diagnoses Diagnosis Uncomplicated opioid dependence (H) Opioid type dependence, unspecified documented in this encounter Care Teams Insurance Account Specialist Relationship Specialty Start Date End Date Luis Fernando Magana PCP - General Family Practice 12/07/16 01/19/[address] [address] documented as of this encounter
--- OUTSIDE RECORDS SUMMARY | 2021-11-10 00:41 | XMS_ITS | Encounter Summary ---
:1980 Author Organization [place] Address [facility] 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 Please disregard. EKEEPER AND LAUNDRY ASSISTANT documented in this encounter Plan of Treatment Upcoming Encounters Date Type Specialty Care Team Description 11/15/2021 Office Visit Wound Care Luis Camara, [place] [address] [place] [address] (Wo rk) documented as of this encounter Visit Diagnoses Diagnosis ERRONEOUS ENCOUNTER--DISREGARD - Primary documented in this encounter Care Teams Sweatband Maker Relationship Specialty Start Date End Date Luis Fernando Magana PCP - General Family Practice 12/07/16 01/19/[address] [address] documented as of this encounter
--- OUTSIDE RECORDS SUMMARY | 2021-11-10 00:41 | XMS_ITS | Encounter Summary ---
:1980 Author Organization [facility] Address [address] [place] [address]. 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 Spoke with Stephani on telephone. She reports she resumed pumping after not pumping for the last 2 weeks. She reports getting some breast milk and anticipates she will easily resume her milk volume as she previously breast fed her other 2 children. We reviewed her current medications, Supoxone, levothyroxine, wellbrutin occasionally and effexor. I recommended pumping 8x/day to encourage milk production. I suggested she have her thyroid levels checked as she reported they had increased her thyroid medication during . Bedside RN Tarsha updated on phone call. Will continue to follow and support. LITY MAINTENANCE TECHNICIAN documented in this encounter Plan of Treatment Upcoming Encounters Date Type Specialty Care Team Description 11/15/2021 Office Visit Wound Care Luis Camara DPM [address] [place] [address] (Wo rk) documented as of this encounter Visit Diagnoses Not on filedocumented in this encounter Care Teams Sole Filler Relationship Specialty Start Date End Date Luis Fernando Magana PCP - General Family Practice 12/07/16 01/19/[address] [id number] documented as of this encounter
--- OUTSIDE RECORDS SUMMARY | 2021-11-10 00:41 | XMS_ITS | Encounter Summary ---
:1980 Author Organization [place] [facility] Address [address] 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 documented as of this encounter Miscellaneous Notes Telephone Encounter - Edgar Alfredo MD - 04/07/2017 12:38 PM CST Called patient re: missed appointment Please add on 04/10/17 at 2:30 [place] ordered L LOADER OPERATOR documented in this encounter Plan of Treatment Upcoming Encounters Date Type Specialty Care Team Description 11/15/2021 Office Visit Wound Care Luis Camara, [place] [address] [place], [place] [id number] (Wo rk) documented as of this encounter Visit Diagnoses Diagnosis Uncomplicated opioid dependence (H) Opioid type dependence, unspecified documented in this encounter Care Teams School Counselor Relationship Specialty Start Date End Date Luis Fernando Magana PCP - General Family Practice 12/07/16 01/19/[address] [address] documented as of this encounter
--- OUTSIDE RECORDS SUMMARY | 2021-11-10 00:41 | XMS_ITS | Encounter Summary ---
:1980 Author Organization [place] Address [facility] [place] [address] Care Team Providers Name Role Phone Luis Fernando Magana Primary Care Provider Reason for Visit Reason Onset Date Comments Erroneous encounter-disregard 04/24/2017 Encounter Details Date Type Department Care Team Description 04/22/2017 Office Visit [facility] Edgar Alfredo [facility] Ashly Gauthier MD ENCOUNTER--DISREGARD [address] [place] (Primary Dx) [address] [place] [phone] Social History Tobacco Use [...] at Date Recorded Female 01/14/2020 10:57 AM [place] FARMER documented as of this encounter Progress Notes Edgar Alfredo MD - 04/22/2017 10:45 AM CST This encounter was opened in error. Please disregard. [place] FARMER documented in this encounter Plan of Treatment Upcoming Encounters Date Type Specialty Care Team Description 11/15/2021 Office Visit Wound Care Luis Camara, [place] [address] [place] [address] (Wo rk) documented as of this encounter Visit Diagnoses Diagnosis ERRONEOUS ENCOUNTER--DISREGARD - Primary documented in this encounter Care Teams Supply Tech Relationship Specialty Start Date End Date Luis Fernando Magana PCP - General Family Practice 12/07/16 01/19/[address] [address] documented as of this encounter
--- OUTSIDE RECORDS SUMMARY | 2021-11-10 00:42 | XMS_ITS | Encounter Summary ---
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 Positive. Rubella: Non-immune, MMR ordered prior to discharge. Feed: Pumping breastmilk for baby in NICU. BC: S/p hyst 3. Hepatitis C: - Viral load 7.4 million. Will follow-up with GI . ?? 4. Hypothyroidism: - Continue synthroid. 5. History of depression/anxiety: - Continue home effexor and wellbutrin. S/p psych consult. SW following patient. Will follow-up for mood check. Dispo: Anticipate discharge home POD#4, pending pain control and meeting postoperative goals Marleny Kang MD Base Draw Operator, PGY-3 Physician Attestation Petrona Powers DO, saw and evaluated Deann King with the resident. I personally reviewed the vital signs, medications, labs and imaging. My vigil history or physical exam findings: Patient is doing well for POD#2. Had a BM this morning, but not passing a lot of flatus. Pain much better controlled with oxycodone 20mg q 3hrs and subutex. Patient walking some and voiding well. Scantbleeding. Some swelling in abdomen. Vigil management decisions made by me: Continue current care. IV infiltrated- does not need it. Discussed that all pain medications should be oral at this time. Encourage ambulation, pumping. Plan discharge on POD#4 due to extensive surgeryand high narcotic requirement, massive transfusion and anticipated fluid shifts. Petrona Barone DO Date of Service (when I saw the patient): 12/26/16 Time Spent on this Encounter IPetrona DO, spent a total of 15 minutes face to face or coordinating care of Reji King. Over 50% of my time on the unit was spent counseling the patient and/or coordinating care regarding postop care from c/hyst. ESTIMATOR Marleny Kang MD - 12/25/2016 9:54 PM CST OB Brief Progress Note Patient seen at bedside to assess pain control this evening. She notes feeling somewhat better, happier with the 20 mg dose of oxycodone. She does feel bloated and wants to pass gas, but wasn't able towhen she sat on the toilet. Denies chest pain, SOB, fevers. Is worried about being able to sleep tonight though. Vital signs: Temp: 97.6 ??F (36.4 ??C) Temp src: Axillary BP: 91/63 Heart Rate: 115 (in pain) Resp: 18 SpO2: 98 %O2 Device: None (Room air) Oxygen Delivery: 8 LPM Height: 167.6 cm (5' 6) Weight: 83.9 kg (185 lb) Estimated body mass index is 29.86 kg/(m^2) as calculated from the following: Height as of this encounter: 1.676 m (5' 6). Weight as of this encounter: 83.9 kg (185 lb). Gen: A&O, appears comfortable sitting up in bed, no acute distress Abd: soft, moderately distended, tympanic, incision c/d/i Ext: warm, well-perfused A/P: POD#1 s/p C-Hyst, doing well postoperatively except continuing to work on pain control. - Improved with higher dose of oxycodone 20 gm every 3 hours, continue IV dilaudid for breakthrough,scheduled toradol and tylenol. Continue current regimen at this time. - Encouraged simethicone use and offered suppository, as suspect that gas pains are contributing to discomfort. Patient agreed to try. - Continuous pulse oximetry, discussed with RN. Marleny Kang MD CHUCKING AND BORING 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 PGY-3 ESTIMATOR Marilu Lam MD - 12/25/2016 9:38 PM CST I have seen and examined this patient this AM (note delayed). She is HD stable and tolerating her recovery to date. WE have discussed the implication of her surgery and she is aware that she will not be able to have additional children, but is grateful to be feeling well. Marilu Lam Petrona Tinoco DO - 12/25/2016 5:44 AM CST [facility] Note Name: Deann King S: Patient is doing okay, still having pain but falling asleep between pushing her pain button. Feels reliefs intermittently. Tolerating water without nausea or vomiting. Resting in bed. Lochia is normal. Denies chest pain, SOB, calf tenderness. Plans to pump breastmilk, but too uncomfortable now. O: Patient Vitals for the past 24 hrs: BP Temp Temp src Heart Rate Resp SpO2 Weight 11/08/17 0500 - - - - - 97 % - 12/25/16 0421 120/86 97.9 ??F (36.6 ??C) Oral 89 20 96 % - 12/25/16 0245 112/71 97.9 ??F (36.6 ??C) Axillary 89 20 99 % - 12/25/16 0230 114/76 - - 81 20 100 % - 12/25/16 0215 125/83 - - 83 13 97 % - 12/25/16 0200 114/81 98.4 ??F (36.9 ??C) Oral 79 14 97 % - 12/25/16 0145 112/71 - - 83 10 96 % - 12/25/16 0130 105/59 - - 91 23 97 % - 12/25/16 0115 (!) 136/96 - - 90 21 98 % - 12/25/16 0100 131/90 - - 86 12 97 % - 12/25/16 0045 (!) 128/94 - - 89 12 96 % - 12/25/16 0040 - - - 89 14 98 % - 12/25/16 0035 - 97.9 ??F (36.6 ??C) Oral 88 17 98 % - 12/25/16 0030 (!) 121/92 - - 89 11 96 % - 12/25/16 0020 - - - 90 13 97 % - 12/25/16 0015 116/76 - - 88 8 100 % - 12/25/16 0005 117/80 97.9 ??F (36.6 ??C) Oral 93 20 98 % - 12/24/16 1600 112/68 98 ??F (36.7 ??C) Oral - 18 - - 12/24/16 0922 108/56 97.6 ??F (36.4 ??C) Oral - 20 - - 12/24/16 0625 - - - - - - 83.9 kg (185 lb) Gen: Resting comfortably, NAD CV: RRR, no murmur Pulm: CTAB, no wheezes Abd: Soft, appropriately ttp, mildly distended, obese Incision: Dressing in place, C/D/I, no significant shadowing noted Ext: non-tender, trace LE edema b/l I/O last 3 completed shifts: In: 67029 [I.V.:4800] Out: 5900 [Urine:900; Blood:5000] Hgb: Hemoglobin Date Value Ref Range Status 12/25/2016 12.2 11.7 - 15.7 g/dL Final Assessment/Plan: Deann King is a 36 year old on POD #1 s/p hysterectomy, bilateral salpingectomy, cystoscopy for suspected placenta accreta. Doing well post-operatively. 1. hemorrhage, requiring massive transfusion: - Secondary to suspected placenta accreta and technically difficult hysterectomy. - Serial CBC, INR, PTT, fibrinogen every 4 hours until stabilized, next set due to be drawn now. - Hgb 9.0 > EBL 5000 mL, 7.5, 10U pRBCs > 12.2 - Platelets 256 > 105 > 2 packs of platelets > 149 - INR 1.16 > 1.5 > 6U FFP > 1.11 - Fibrinogen 328 > 189 > 1U cryo > 338 - Low suspicion for ongoing bleeding, given soft abdomen, adequate UOP, and stable vital signs. - Daily weights, strict Is/Os given risk of fluid overload. Close electrolyte monitoring given massive transfusion. ERP ordered. - S/p ancef in OR for ppx. Will plan 24 hours of gent/clinda for additional prophylaxis. 2. cares: Pain: S/p TAP blocks. 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 Holding NSAIDs until Hgb stabilizes. Continue home subutex for history of substance abuse. GI: CLD, advance as tolerated. Scheduled bowel regimen ordered. : Duarte in place, strict Is/Os. Daily weights. Rh: Positive. Rubella: Non-immune, MMR ordered. Mood: Continue home effexor, wellbutrin. S/p psych consult. SW is following patient. Feed: Planning to pump breastmilk. BC: S/p hyst 3. Hepatitis C: - Viral load 7.4 million. Will follow-up with GI . 4. Hypothyroidism: - Continue synthroid. Marleny Kang MD Base Draw Operator, PGY-3 Physician Attestation I, Petrona Barone, DO, saw and evaluated Deann King with the resident. I personally reviewed the vital signs, medications, labs and imaging. My vigil history or physical exam findings: Patient now sitting in rocking chair at side of bed. She complains of incredible pain and needs something now. Duarte still in place. Denies SOB, CP. Only complaint is a lot of abdomina pain/incisional pain. Vigil management decisions made by me: We reviewed realistic goals for pain control. Hx of opioid dependence on subutex 2 mg 5 x daily. Patient will require more narcotic given tolerance. Labs stable. Toradol given now. Increase FO[employer] SAL[employer] LEADER to 0.3mg continuous with 0.3-0.5mg bumps. Total hourly increase allowed from 2 mg to 3.3mg. Continuous pulseox and assess alertness, etc. We discussed post op goals including ambulation to improve bowel motility, stool softeners, etc. Reviewed the nights events/surgical procedure with the patient. Had updated her family throughout the case and afterwards. Petrona Barone DO Date of Service (when I saw the patient): 12/25/16 Time Spent on this Encounter I, Petrona Barone DO, spent a total of 15 minutes face to face or coordinating care of Reji King. Over 50% of my time on the unit was spent counseling the patient and/or coordinating care regarding post op pain, recovery plan, etc. ESTIMATOR Marleny Kang MD - 12/25/2016 2:56 AM CST [facility] Note Name: Deann King S: Patient seen in PACU. Pain is poorly controlled and notes that she needs more medications. Wants to sip on water as well. No nausea or vomiting. Feels bladder pressure. Duarte catheter in place, draining clear yellow urine. Denies chest pain, SOB. O: Patient Vitals for the past 24 hrs: BP Temp Temp src Heart Rate Resp SpO2 Weight 12/25/16 0230 114/76 - - 81 20 100 % - 12/25/16 0215 125/83 - - 83 13 97 % - 12/25/16 0200 114/81 98.4 ??F (36.9 ??C) Oral 79 14 97 % - 12/25/16 0145 112/71 - - 83 10 96 % - 12/25/16 0130 105/59 - - 91 23 97 % - 12/25/16 0115 (!) 136/96 - - 90 21 98 % - 12/25/16 0100 131/90 - - 86 12 97 % - 12/25/16 0045 (!) 128/94 - - 89 12 96 % - 12/25/16 0040 - - - 89 14 98 % - 12/25/16 0035 - 97.9 ??F (36.6 ??C) Oral 88 17 98 % - 12/25/16 0030 (!) 121/92 - - 89 11 96 % - 12/25/16 0020 - - - 90 13 97 % - 12/25/16 0015 116/76 - - 88 8 100 % - 12/25/16 0005 117/80 97.9 ??F (36.6 ??C) Oral 93 20 98 % - 12/24/16 1600 112/68 98 ??F (36.7 ??C) Oral - 18 - - 12/24/16 0922 108/56 97.6 ??F (36.4 ??C) Oral - 20 - - 12/24/16 0625 - - - - - - 83.9 kg (185 lb) 12/24/16 0408 97/49 97.5 ??F (36.4 ??C) Oral - 18 - - Gen: Resting comfortably, NAD CV: Regular rate Pulm: CTAB Abd: Soft, voluntary guarding, diffuse tenderness Incision: Dressing in place, C/D/I, no significant shadowing noted Ext: non-tender, trace LE edema b/l I/O last 3 completed shifts: In: 89900 [I.V.:4800] Out: 5900 [Urine:900; Blood:5000] Hgb: Hemoglobin Date Value Ref Range Status 12/25/2016 12.2 11.7 - 15.7 g/dL Final Assessment/Plan: Deann King is a 36 year old on POD #1 s/p hysterectomy, bilateral salpingectomy, cystoscopy for suspected placenta accreta. Doing well post-operatively. 1. hemorrhage, requiring massive transfusion: - Secondary to likely placenta accreta and technically difficult hysterectomy. - Serial CBC, INR, PTT, fibrinogen every 4 hours until stabilized. - Hgb 9.0 > EBL 5000 mL, 7.5, 10U pRBCs > 12.2 - Platelets 256 > 105 > 2 packs of platelets > 149 - INR 1.16 > 1.5 > 6U FFP > 1.11. - Fibrinogen 328 > 189 > 1U cryo > 338 - Daily weights, strict Is/Os given risk of fluid overload. Close electrolyte monitoring given massive transfusion. ERP ordered. 2. cares: Pain: S/p TAP blocks. Dilaudid [employer] SAL[employer] LEADER with scheduled tylenol, will increase demand dose. Holding NSAIDsuntil Hgb stabilizes. Continue home subutex for history of substance abuse. Supportive measures including warm packs, abdominal binder. GI: CLD, advance as tolerated. Scheduled bowel regimen ordered. : Duarte in place, strict Is/Os. Daily weights. Rh: Positive. Rubella: Non-immune, MMR ordered. Mood: Continue home effexor, wellbutrin. SW is following patient. Marleny Kang MD Base Draw Operator, PGY-3 12/25/2016, 2:28 AM ESTIMATOR Yareli Greenwood, RN - 12/24/2016 8:35 PM CST This RN transferred pt from antepartum unit to OR at 1930. OR and OB team then took over care of patient. This RN completed doptones at 1940, FHR baseline 155, increases heard, no decreased. NICU team present for delivery. Viable male delivered at 2004. Cord segment collected and sent with NICU team for arterial and venous gas assessment. Placenta collected and will be sent to lab once order placed. This RN will accompany pt to PACU to complete OB assessments- breast pumping and fundal checks if uterus not removed. Petrona Tinoco DO - 12/24/2016 7:07 PM CST OB G3 Progress Note Called to patient bedside emergently due to vaginal bleeding. She passed a plum sized blood clot in the toilet and filled half pad. She was escorted to bed and SSE was performed. Difficult to fully assess cervix, but membranes were seen bulging though the cervix with small amount of active bleeding, no hemorrhage noted. Cervix appeared 2-3 cm dilated visually. Patient notes feeling contractions that are getting more uncomfortable. Recommend proceeding toward delivery. Second IV was placed. T&S was noted to be active and type and cross for 2U was ordered. Blood bank was notified. IV magnesium 6 gram load was started immediately. Dr. Barone M staff and Dr. Nunez CHUCKING AND BORING 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 staff were notified. Delivery plan was confirmed with the patient and consent was confirmed for hysterectomy, possible section, and possible bilateral tubal ligation. If placenta delivers easily, will not need to proceed toward hysterectomy. Agrees to blood transfusion. The patient placed initials on consent. Anesthesia was notified. Unfortunately, patient has not been NPO and will need general anesthesia. Main OR notified, proceed urgently. Marleny Kang MD CHUCKING AND BORING 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 PGY-3 [facility] staff note: Called regarding change in clinical status for patient. Delivery indicated in the setting of pretermcervical dilation, hemorrhage with known posterior placenta previa/possible accreta and prolonged ROM. S/p BMZ nearly 2 weeks ago. Magnesium sulfate for KNOT CUTTER recommended. Type and cross with blood in OR. Petrona Barone DO FACOG Maternal Medicine Specialist Pager: [phone] ESTIMATOR Petrona Barone DO - 12/24/2016 10:18 AM CST [facility] Antepartum Progress Note Subjective: She is doing ok. Has no further questions or concerns regarding tongue pain and ulcer. States she iscontinuing to have early contractions only in her lower pelvis that occur every 10 mins. She is able to sleep through the contractions and does not feel any pain with the contractions. No abdominal pain or VB. Did have pink-tinged discharge on her pad this am. Denies itching or irritation of the vagina. Positive movement. Objective: Vitals: 12/23/16 2355 12/24/16 0408 12/24/16 0625 12/24/16 0922 BP: 114/58 97/49 108/56 Pulse: Resp: 18 18 20 Temp: 97.7 ??F (36.5 ??C) 97.5 ??F (36.4 ??C) 97.6 ??F (36.4 ??C) TempSrc: Oral Oral Oral Weight: 83.9 kg (185 lb) Height: Gen: Resting comfortably sitting in bed, NAD HEENT: did not examine this am CV: Regular rate Resp: Normal respiratory effort Abd: Gravid, non-tender, non-distended, minor tenderness in suprapubic region. During subjective contraction no contraction noticed on monitor and no tightening or firmness palpated - abdomen completely soft. Ext: warm, well-perfused, trace edema FHT: Baseline 140s, moderate variability, present accels, absent decels [place]: no contractions or irritability noted Imaging: See under Imaging tab Placenta posterior, complete previa BPP 09/24 Assessment/Plan: Deann King is a 36 year old at 29w4d by LMP c/w 6w2d US admitted for PPROM at 27w1d with otherwise complicated by complete placenta previa concerning for accreta. Care conferencere: delivery plan scheduled for this Fri at 1:00pm. ? 1) PPROM: - S/p 7D??latency antibiotics. - No s/s of labor, infection. ??Will proceed toward delivery at 34 weeks or sooner for labor, infection, bleeding, or?? indications. - Twice weekly BPPs, presentation. Next scheduled 12/26 (/). - Q3 week growth US (next 12/29/16). - C-Hyst consent signed 12/18. Partner is aware of plan to proceed with C-hyst. ? 2) Complete placenta previa, concern for accreta/Mode of Delivery: - MRI with concern for possible accreta. S/p extensive counseling regarding delivery plan and desires C-Hyst. S/p consent. - S/p C/S consent. ??Hx C/S x2 and uterine rupture with attempted TOLAC in last . ??Uterinerupture occurring along hysterotomy, at 38w5d. - Q72 hours T&S. IV in place at all times. - Patient to notify team of any labor concerns or vaginal bleeding. Plan c-hyst unless previa resolves with [facility] double staff. - Care conference scheduled for Friday12/25/2016 at 1:00pm to discuss delivery plan. ? 3) FWB: - Category 1 FHT, reactive. TID and uterine monitoring. - S/p BMZ x2 (12/07/16-12/08/16). S/p 12+ hr of magnesium for neuroprotection. S/p Indocin for tocolysis through BMZ window. - IV magnesium if delivery is imminent before 32 weeks. Consider rescue BMZ course as indicated. - S/p NICU consult. ? 4) Hepatitis C: - Hep C viral load 7.4 million. Needs follow up with GI or [employer] for treatment options . - Notify NICU of these results prior to delivery.?? 5) History of substance abuse: - UDS negative on admission. Continue home subutex. - S/p SW consult. Consult anesthesiology for operative pain management. ? 6) Depression/anxiety: - Home effexor continued, added wellbutrin during admission. ??S/p psychologist. ?? 8) Hypothyroidism: - On synthroid. Last TSH 3 (12/09/16). Dose increased to 150 mcg daily, will repeat TFTs in 4 weeks from dose increase, end of Dec. 8) Minor tongue ulcer: likely due to poor dentition, tongue ulcer, s/p dental consult. Magic mouthwash QID swish and spit (as unable to obtain rincinol on formulary per dental recs) and oragel for irritation. 7) PNC: - Rh positive, rubella non-immune??- MMR , GBS positive, posterior placenta previa. - S/p flu and??Tdap. - Tobacco use, PRN nicotine gum. - s/p resolution of contact dermatitis. - Chronic MSK pain. S/p PT consult. ??Supportive measures including massage and acupuncture as needed. Dispo: inpatient until delivery and recovery Patient seen and staffed with Dr. Barone. Tatyana Walsh MD MPH CHUCKING AND BORING 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, PGY3 Pager: [phone] 12/23/2016 10:04 AM Physician Attestation I, Petrona Barone, DO, saw and evaluated Deann King with the resident. I personally reviewed the vital signs, medications, labs and imaging. My vigil history or physical exam findings: Still having perceived contractions/low abdominal cramping. Dx with yeast infection yesterday on wetprep. Spec exam last night due to persistent cramping without evidence of cervical change- closed and thick appearing. No bleeding. Leaking clear/pink fluid. Vigil management decisions made by me: Continue current care Plan care conference tomorrow for delivery planning Type and screen current Monitor closely for symptoms of labor, infection. UA pending. Tx yeast vaginitis. Petrona Barone DO Date of Service (when I saw the patient): 12/24/16 Time Spent on this Encounter I, Petrona Barone DO, spent a total of 15 minutes face to face or coordinating care of Reji King. Over 50% of my time on the unit was spent counseling the patient and/or coordinating care regarding PPROM, complete previa. ESTIMATOR Marleny Kang MD - 12/23/2016 11:56 PM CST OB Brief Progress Note Notified by RN of concern for rectal pressure and ongoing cramping once every 10 minutes like at thebeginning of labor. Cramping is noticeable and has been present all day despite no contractions noted on toco. She denies vaginal bleeding. Ongoing leakage of clear fluid with yellow mucus. Denies vaginal itching/irritaiton. Has noticed increased urinary frequency, but denies dysuria and constipation.Feels anxious about having something bad happen to her baby and wants to be delivered. Category 1 FHT, reactive. No contractions noted on toco. Abdomen soft, gravid, no rebound, mild tenderness over pubic symphysis and round ligaments. Recommend SSE given pressure, but discussed desire to limit exams if possible. SSE performed at bedside carefully due to known of placenta previa with multiparous, but closed and long appearing cervix. No vaginal bleeding. Scant clear fluid. Wet prep collected of vaginal discharge and UA ordered. Reassurance provided to patient. To use tylenol, warm packs for discomfort. Okay for TID monitoring. Patient to notify care team of new symptoms. Marleny Kang MD CHUCKING AND BORING 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 PGY-3 ESTIMATOR Lizabeth Petrona Marie, - 12/23/2016 10:04 AM CST [facility] Antepartum Progress Note Subjective: She is doing ok. States pain on the right side of her tongue where her tooth is rubbing against the tongue. No jaw or actual tooth pain. Taking tylenol for pain with only minimal relief. No contractions or tightening or abdominal pain. No VB. Positive movement. Objective: Vitals: 12/22/16200012/22/16 2316 12/23/16 0546 12/23/16 0648 BP: 103/54 (!) 89/52 95/55 Pulse: Resp: 18 Temp: 97.8 ??F (36.6 ??C) 98 ??F (36.7 ??C) 97.7 ??F (36.5 ??C) TempSrc: Oral Oral Weight: Height: Gen: Resting comfortably in bed, NAD HEENT: PERRL, EOMI, poor dentition with multiple dental caries and broken teeth. 2 mm aphthous ulcerright lateral tongue. CV: Regular rate Resp: Normal respiratory effort Abd: Gravid, non-tender, non-distended Ext: warm, well-perfused FHT: Baseline 130s, moderate variability, present accels, absent decels [place]: quiet, no contractions Assessment/Plan: Deann King is a 36 year old @ 29w3d by LMP c/w 6w2d US admitted for PPROM at 27w1d withpregnancy otherwise complicated by complete placenta previa concerning for accreta. ? 1) PPROM: - S/p 7D??latency antibiotics. - No s/s of labor, infection. ??Will proceed toward delivery at 34 weeks or sooner for labor, infection, bleeding, or?? indications. - Twice weekly BPPs, presentation. Next scheduled 12/19??(/). - Q3 week growth US (next 12/29/16). - C-Hyst consent signed 12/18. Partner is aware of plan to proceed with C-hyst. ? 2) Complete placenta previa, concern for accreta/Mode of Delivery: - MRI with concern for possible accreta. S/p extensive counseling regarding delivery plan and desires C-Hyst. S/p consent. - S/p C/S consent. ??Hx C/S x2 and uterine rupture with attempted TOLAC in last . ??Uterinerupture occurring along hysterotomy, at 38w5d. - Q72 hours T&S. IV in place at all times. - Patient to notify team of any labor concerns or vaginal bleeding. Plan c-hyst unless previa resolves with [facility] double staff. ? 3) FWB: - Category 1 FHT, reactive. TID and uterine monitoring. - S/p BMZ x2 (12/07/16-12/08/16). S/p 12+ hr of magnesium for neuroprotection. S/p Indocin for tocolysis through BMZ window. - IV magnesium if delivery is imminent before 32 weeks. Consider rescue BMZ course as indicated. - S/p NICU consult. ? 4) Hepatitis C: - Hep C viral load [id number]. - Notify NICU of these results prior to delivery.?? - Needs follow up with GI or [employer] for treatment options . ? 5) History of substance abuse: - UDS negative on admission. Continue home subutex. - S/p SW consult. Consult anesthesiology for operative pain management. ? 6) Depression/anxiety: - Home effexor continued, added wellbutrin during admission. ??S/p psychologist. ?? 8) Hypothyroidism: - On synthroid. Last TSH 3 (12/09/16). Dose increased to 150 mcg daily, will repeat TFTs in 4 weeks from dose increase, end of Dec. 8) Minor tongue ulcer: likely due to poor dentition with cracked teeth, oragel for pain. Dental consult. 7) PNC: - Rh positive, rubella non-immune??- MMR , GBS positive, posterior placenta previa. - S/p flu and??Tdap. - Tobacco use, PRN nicotine gum. - PRN hydrocortisone cream from contact dermatitis. Much improved and not requiring topical cream atthis time. - Chronic MSK pain. S/p PT consult. ??Supportive measures including massage and acupuncture as needed. Dispo: inpatient until delivery and recovery Patient seen and staffed with Dr. Barone. Tatyana Walsh MD MPH CHUCKING AND BORING 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, PGY3 Pager: [phone] 12/23/2016 10:04 AM Physician Attestation Petrona Powers DO, saw and evaluated Deann King with the resident. I personally reviewed the vital signs, medications, labs and imaging. My vigil history or physical exam findings: Patient denies bleeding. Yellowish non odorous amniotic fluid leaking. +FM. No contractions. Vigil management decisions made by me: Continue current care Care conference/delivery conference planned for Friday IV at all times, current T&S Fri/ assessment with US Petrona Barone DO Date of Service (when I saw the patient): 12/23/16 Time Spent on this Encounter IPetrona DO, spent a total of 15 minutes face to face or coordinating care of Reji King. Over 50% of my time on the unit was spent counseling the patient and/or coordinating care regarding placenta previa/PPROM, possible accreta. ESTIMATOR Nora Mohamud MD - 12/22/2016 10:45 AM CST Images from the original note were not included. Maternal- Medicine Attending S: Pt reports a couple of contractions yesterday. Denies VB. Reports + FM. Still with LOF, yellow-clear color, no green, no odor, no vaginal itching. Has some tongue pain related to what she thinks is a cavity. Has no concerns about her skin; always has little sores (related to known picking behavior). O: BP 101/52 Pulse 101 Temp 97.6 ??F (36.4 ??C) (Oral) Resp 18 Ht 1.676 m (5' 6) Wt 82.1 kg (181 lb) BMI 29.21 kg/m2 GEN: NAD ABD: gravid, NT FHT: 145 w/ moderate variability, + acceleration x1, one small variable deceleration TOCO: no contractions NST interpretation for today: appropriate for GA A/P: 36 year old 29w2d admitted with??PPROM in the setting of placenta previa with possible accreta with history of 2 prior CD including uterine rupture x1. ??No signs of intra-amniotic infection, overt abruption or labor. ?? Will continue to monitor color of fluid/vaginal dischage. ?? 1. PPROM - s/p latency antibiotics - monitor for signs and symptoms of chorioamnionitis, vaginal bleeding - repeat SSE prn, if any concern for infection, labor, bleeding 2. well-being - s/p betamethasone??12/07 and 12/08, would be a candidate for rescue course - last growth ultrasound??12/08 - qshift monitoring and prn - appreciate NICU consultation - serial assessment of amniotic fluid 3. Routine OB/other issues - continue vitamin - monitor maternal weights - s/p normal echo - will order SCDs for when patient is in bed - will order dental consultation, hopefully they see patients in house - bacitracin prn to skin lesions to prevent superinfection, MRSA negative on admissoin 4. Hypothyroidism - levothyroxine 150, serial TSH 5. Opioid dependence - continue buprenorphine, pt to let us know if she feels like she needs an increase dose, has not increased it in past pregnancies 6. Hepatitis C - s/p GI at [facility] in 2013, genotype 1a - normal LFTs - viral load noted to be over 7 million - will need to alert peds at time of delivery 7. Depression - continue home effexor, wellbutrin added last week - appreciate social work and psych consultation 8. Mode of delivery - history of 2 prior cesareans, including history of uterine rupture, and placenta previa - MRI concerning for possible accreta - plan in place for repeat CD via midline vertical with hyst prn versus BTL (confidential plan for BTL) - s/p anesthesiology consultation - active T&S at all times 9. Dispo - pt to remain in house until delivery - pt agrees with plan of care and all questions answered I spent a total of 15 minutes with Deann King, >50% of which was spent in counseling and/or coordination of care. Date of service (when I saw the patient): December 22, 2016 Nora Mohamud MD Dorr Operator, CHUCKING AND BORING 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 Maternal- Medicine [email or web address] [phone] (Academic office) [phone] (Pager) ESTIMATOR Nora Mohamud MD - 12/21/2016 11:52 AM CDT Images from the original note were not included. Maternal- Medicine Attending Late entry, patient seen several hours ago. S: Pt sleeping this AM, offered no complaints. O: BP 100/50 Pulse 101 Temp 97.7 ??F (36.5 ??C) (Oral) Resp 16 Ht 1.676 m (5' 6) Wt 82.1 kg (181 lb) LMP 05/24/2016 (Approximate) BMI 29.21 kg/m2 GEN: NAD ABD: gravid, NT FHT: 145 w/ moderate variability, no A, no D TOCO: no contractions NST interpretation for today: overall non-reactive at this time but appropriate for GA A/P: 36 year old 29w1d admitted with??PPROM in the setting of placenta previa with possible accreta with history of 2 prior CD including uterine rupture x1. ??No signs of intra-amniotic infection, overt abruption or labor. ?? 1. PPROM - s/p latency antibiotics - monitor for signs and symptoms of chorioamnionitis, vaginal bleeding 2. well-being - s/p betamethasone??12/07 and 12/08, would be a candidate for rescue course - last growth ultrasound??12/08 - qshift monitoring and prn - appreciate NICU consultation - serial assessment of amniotic fluid 3. Routine OB - continue vitamin - monitor maternal weights - s/p normal echo 4. Hypothyroidism - levothyroxine 150, serial TSH 5. Opioid dependence - continue buprenorphine, pt to let us know if she feels like she needs an increase dose, has not increased it in past pregnancies 6. Hepatitis C - s/p GI at [facility] in 2013, genotype 1a, inpatient GI consulted - normal LFTs - viral load noted to be over 7 million - will need to alert peds at time of delivery 7. Depression - continue home effexor, wellbutrin added last week - appreciate social work and psych consultation 8. Mode of delivery - history of 2 prior cesareans, including history of uterine rupture, and placenta previa - MRI concerning for possible accreta - plan in place for repeat CD via midline vertical with hyst prn versus BTL - s/p anesthesiology consultation - active T&S at all times 9. Dispo - pt to remain in house until delivery - pt agrees with plan of care and all questions answered I spent a total of 15 minutes with Deann King, >50% of which was spent in counseling and/or coordination of care. Date of service (when I saw the patient): December 21, 2016 Nora Mohamud MD Dorr Operator, CHUCKING AND BORING 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 Maternal- Medicine [email or web address] [phone] (Academic office) [phone] (Pager) Apple Sen RD - 12/20/2016 11:41 AM CDT CLINICAL NUTRITION SERVICES - REASSESSMENT NOTE Nutrition Prescription RECOMMENDATIONS FOR MDs/PROVIDERS TO ORDER: None currently Malnutrition Status: Patient does not meet two of the criteria necessary for diagnosing malnutrition Recommendations already ordered by Registered Dietitian (RD): Ordered scheduled snacks as follows - --10 am: Grapes + string cheese --2pm: 1/2 sandwich --HS snack: banana + cookies Future/Additional Recommendations: 1. Continue weekly wts to assess wt gain throughout 2. Continue to encourage meals TID and/or snacks to meet nutrition needs. EVALUATION OF THE PROGRESS TOWARD GOALS Diet: Regular Intake: Per discussion with pt, she reports her appetite has been good. She reports she is ordering 3+ meals/day, but does not always eat 100% of everything she orders. Pt denies any issues with nausea/vomiting, stating these issues have resolved. Pt reports she receives all of her food from the hospital/Room Service menu and states the menu is starting to become repetitive. NEW FINDINGS Weight: Most recent wt of 82.1 kg (181 lb), up 4 lb since admit wt on 12/13 of 80.3 kg (177 lb). Pt unsure of pre-, however per wt hx suspect pre- wt around ~175 lb (~80 kg). Based on suspected pre- wt, suspect wt gain of ~8.1 kg or 6 lb throughout her , with goals of 15-25 lb total throughout or 0.3 kg/week. Started multivitamin with iron on 12/13 MALNUTRITION % Intake: No decreased intake noted % Weight Loss: None noted Subcutaneous Fat Loss: None observed Muscle Loss: None observed Fluid Accumulation/Edema: None noted Malnutrition Diagnosis: Patient does not meet two of the above criteria necessary for diagnosing malnutrition Previous Goals Patient to consume 75-100% of nutritionally adequate meal trays TID, or the equivalent with supplements/snacks. Evaluation: Suspect Met per pt report Previous Nutrition Diagnosis Inadequate micronutrient intake related to no multivitamin currently ordered, hx of variable PO intakes as evidenced by pt report of hx of decreased PO although currently improving, however ongoing potential to not meet 100% of micronutrient needs through diet during . Evaluation: Resolved, pt started on multivitamin with minerals per above CURRENT NUTRITION DIAGNOSIS Predicted inadequate nutrient intake (calories/protein) related to hx of variable PO intakes, thoughcurrently eating well as evidenced by potential for PO intakes to decline with prolonged LOS. INTERVENTIONS Implementation Discussed PO intakes over the past week. Pt reports good appetite, though menu is getting repetitive. Discussed option for scheduled snacks and pt requested scheduled snacks TID. Ordered scheduled snacks per above Goals Patient to consume 75-100% of nutritionally adequate meal trays TID, or the equivalent with supplements/snacks. Monitoring/Evaluation Progress toward goals will be monitored and evaluated per protocol. Apple Sen RD, LD Unit Pager: [phone] Lashawn Patel MD - 12/20/2016 8:59 AM CDT MFM Antepartum Progress Note Subjective: Deann is doing well today. She denies cramping, contractions, vaginal bleeding. Continues to note clear leakage of fluid. Baby is active. Rash is much improved with hydrocortisone cream. Objective: Vitals: 12/19/16 1900 12/19/16 2330 12/20/16 0450 12/20/16 0815 BP: 95/51 105/55 106/57 Pulse: Resp: 16 16 16 Temp: 97.7 ??F (36.5 ??C) 98.4 ??F (36.9 ??C) 97.5 ??F (36.4 ??C) 98 ??F (36.7 ??C) TempSrc: Oral Oral Oral Oral Weight: Height: Gen: Resting comfortably in bed, NAD Abd: Gravid, soft, non-tender, non-distended Ext: warm, well-perfused FHT: Baseline 140s, moderate variability, + accels, rare variable decels [place]: quiet, 0 ctx in 10 minutes Assessment/Plan: Deann King is a 36 year old @ 29w0d by LMP c/w 6w2d US admitted for PPROM at 27w1d withpregnancy otherwise complicated by complete placenta previa concerning for accreta. ? 1. PPROM: - S/p 7D??latency antibiotics. - No s/s of labor, infection. ??Will proceed toward delivery at 34 weeks or sooner for labor, infection, bleeding, or?? indications. - Twice weekly BPPs, presentation. Next scheduled 12/19??(/). - Q3 week growth US (next 12/29/16). - C-Hyst consent signed 12/18. Partner is aware of plan to proceed with C-hyst. ? 2. Complete placenta previa, concern for accreta: - MRI with concern for possible accreta. S/p extensive counseling regarding delivery plan and desires C-Hyst. S/p consent. - S/p C/S consent. ??Hx C/S x2 and uterine rupture with attempted TOLAC in last . ??Uterinerupture occurring along hysterotomy, at 38w5d. - Q72 hours T&S. IV in place at all times. - Patient to notify team of any labor concerns or vaginal bleeding. Plan c-hyst unless previa resolves with [facility] double staff. ? 3. FWB: - Category 1 FHT, reactive. TID and uterine monitoring. - S/p BMZ x2 (12/07/16-12/08/16). S/p 12+ hr of magnesium for neuroprotection. S/p Indocin for tocolysis through BMZ window. - IV magnesium if delivery is imminent before 32 weeks. Consider rescue BMZ course as indicated. - S/p NICU consult. ? 4. Hepatitis C: - Hep C viral load [id number],209. - Notify NICU of these results prior to delivery.?? - Needs follow up with GI or [employer] for treatment options . ? 5. History of substance abuse: - UDS negative on admission. Continue home subutex. - S/p SW consult. Consult anesthesiology for operative pain management. ? 6. Depression/anxiety: - Home effexor continued, added wellbutrin during admission. ??S/p psychologist. ? 7. PNC: - Rh positive, rubella non-immune??- MMR , GBS positive, posterior placenta previa. - S/p flu and??Tdap. - Tobacco use, PRN nicotine gum. - PRN hydrocortisone cream from contact dermatitis. Continue to monitor rash. - Chronic MSK pain. S/p PT consult. ??Supportive measures including massage and acupuncture as needed. 8. Hypothyroidism: - On synthroid. Last TSH 3 (12/09/16). Dose increased to 150 mcg daily, will repeat TFTs in 4 weeks from dose increase. Lashawn Patel Time Spent on this Encounter I, Lashawn Patel, spent a total of 15 minutes bedside and on the inpatient unit today managing thecare of Deann King. Over 50% of my time on the unit was spent counseling the patient and /or coordinating care regarding complicated by placenta previa and PPROM. See note for details. Lashawn Patel Tatyana Walsh MD - 12/19/2016 11:56 PM CDT Strip Review FHT: Baseline 140s bpm, moderate variability, present accels, absent decels - appropriate for GA. [place]: no contractions No intervention needed at this time. Tatyana Walsh MD MPH CHUCKING AND BORING 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, PGY3 Pager: [phone] 12/19/2016 11:56 PM Lashawn Patel MD - 12/19/2016 9:54 AM CDT MFM Antepartum Progress Note Subjective: Deann is doing well today. She denies cramping, contractions, vaginal bleeding. Continues to note clear leakage of fluid. Baby is active. Objective: Vitals: 12/18/16 2000 12/18/16 2330 12/19/16 0415 12/19/16 0800 BP: 114/58 112/54 Pulse: 95 Resp: 18 Temp: 97.9 ??F (36.6 ??C) 97.8 ??F (36.6 ??C) 97.8 ??F (36.6 ??C) 97.7 ??F (36.5 ??C) TempSrc: Oral Oral Oral Oral Weight: Height: Gen: Resting comfortably in bed, NAD Abd: Gravid, soft, non-tender, non-distended Ext: warm, well-perfused FHT: Baseline 130s, moderate variability, + accels, no decels [place]: quiet, 0 ctx in 10 minutes Assessment/Plan: Deann King is a 36 year old @ 28w6d by LMP c/w 6w2d US admitted for PPROM at 27w1d withpregnancy otherwise complicated by complete placenta previa concerning for accreta. ? 1. PPROM: - S/p 7D??latency antibiotics. - No s/s of labor, infection. ??Will proceed toward delivery at 34 weeks or sooner for labor, infection, bleeding, or?? indications. - Twice weekly BPPs, presentation. Next scheduled 12/19??(/). - Q3 week growth US (next 12/29/16). - C-Hyst consent signed 12/18. Partner is aware of plan to proceed with C-hyst. ? 2. Complete placenta previa, concern for accreta: - S/p C/S consent. ??Hx C/S x2 and uterine rupture with attempted TOLAC in last . ??Uterinerupture occurring along hysterotomy, at 38w5d. - Q72 hours T&S. IV in place at all times. - Patient to notify team of any labor concerns or vaginal bleeding. - MRI with concern for possible accreta. S/p extensive counseling regarding delivery plan and desires C-Hyst. S/p consent. ? 3. FWB: - Category 1 FHT, reactive. TID and uterine monitoring. - S/p BMZ x2 (12/07/16-12/08/16). S/p 12+ hr of magnesium for neuroprotection. S/p Indocin for tocolysis through BMZ window. - IV magnesium if delivery is imminent before 32 weeks. Consider rescue BMZ course as indicated. - S/p NICU consult. ? 4. Hepatitis C: - Hep C viral load [id number],209. - Notify NICU of these results prior to delivery.?? - Needs follow up with GI or [employer] for treatment options . ? 5. History of substance abuse: - UDS negative on admission. Continue home subutex. - S/p SW consult. Consult anesthesiology for operative pain management. ? 6. Depression/anxiety: - Home effexor continued, added wellbutrin during admission. ??S/p psychologist. ? 7. PNC: - Rh positive, rubella non-immune??- MMR , GBS positive, posterior placenta previa. - S/p flu and??Tdap. - Tobacco use, PRN nicotine gum. - PRN hydrocortisone cream from contact dermatitis. Continue to monitor rash. - Chronic MSK pain. S/p PT consult. ??Supportive measures including massage and acupuncture as needed. 8. Hypothyroidism: - On synthroid. Last TSH 3 (12/09/16). Dose increased to 150 mcg daily, will repeat TFTs in 4 weeks from dose increase. Lashawn Patel Time Spent on this Encounter I, Lashawn Patel, spent a total of 15 minutes bedside and on the inpatient unit today managing thecare of Deann King. Over 50% of my time on the unit was spent counseling the patient and /or coordinating care regarding complicated by placenta previa and PPROM. See note for details. Lashawn Patel Tatyana Walsh MD - 12/19/2016 3:13 AM CDT Strip Review (Note delayed due to patient care) FHT: Baseline 140s bpm, moderate variability, present accels, absent decels - appropriate for GA. [place]: no contractions No intervention needed at this time. Tatyana Walsh MD MPH CHUCKING AND BORING 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, PGY3 Pager: [phone] 12/19/2016 3:13 AM Lashawn Patel MD - 12/18/2016 11:53 AM CDT MFM Antepartum Progress Note Subjective: Deann is doing well today. She denies cramping, contractions, vaginal bleeding. Continues to note clear leakage of fluid. Notes that her rash is somewhat improved with hydrocortisone cream. Notes that in her previous pregnancies, she checked her own cervix and earlier this it is more off to the right side not in the middle. Objective: Vitals: 12/17/16 1640 12/18/16 0040 12/18/16 0405 12/18/16 0814 BP: 111/59 104/55 107/64 99/55 Pulse: 87 Resp: 16 16 Temp: 98.2 ??F (36.8 ??C) 98.5 ??F (36.9 ??C) 97.8 ??F (36.6 ??C) 97.7 ??F (36.5 ??C) TempSrc: Oral Oral Oral Oral Weight: Height: Gen: Resting comfortably in bed, NAD CV: Regular rate Resp: Normal respiratory effort Abd: Gravid, non-tender, non-distended Skin: Mildly erythematous rash in axillary area and lateral abdomen appearance consistent with contact dermatitis Ext: warm, well-perfused FHT: Baseline 130s, moderate variability, + accels, no decels [place]: quiet, 0 ctx in 10 minutes Assessment/Plan: Deann King is a 36 year old @ 28w5d by LMP c/w 6w2d US admitted for PPROM at 27w1d withpregnancy otherwise complicated by complete placenta previa concerning for accreta. ? 1. PPROM: - S/p 7D??latency antibiotics. - No s/s of labor, infection. ??Will proceed toward delivery at 34 weeks or sooner for labor, infection, bleeding, or?? indications. - Twice weekly BPPs, presentation. Next scheduled 12/19??(/). - Q3 week growth US (next 12/29/16). - C-Hyst consent signed 12/18. Partner is aware of plan to proceed with C-hyst. ? 2. Complete placenta previa, concern for accreta: - S/p C/S consent. ??Hx C/S x2 and uterine rupture with attempted TOLAC in last . ??Uterinerupture occurring along hysterotomy, at 38w5d. - Q72 hours T&S. IV in place at all times. - Patient to notify team of any labor concerns or vaginal bleeding. - MRI with concern for possible accreta. S/p extensive counseling regarding delivery plan and desires C-Hyst. S/p consent. ? 3. FWB: - Category 1 FHT, reactive. TID and uterine monitoring. - S/p BMZ x2 (12/07/16-12/08/16). S/p 12+ hr of magnesium for neuroprotection. S/p Indocin for tocolysis through BMZ window. - IV magnesium if delivery is imminent before 32 weeks. Consider rescue BMZ course as indicated. - S/p NICU consult. ? 4. Hepatitis C: - Hep C viral load [id number],209. - Notify NICU of these results prior to delivery.?? - Needs follow up with GI or [employer] [facility] for treatment options . ? 5. History of substance abuse: - UDS negative on admission. Continue home subutex. - S/p SW consult. Consult anesthesiology for operative pain management. ? 6. Depression/anxiety: - Home effexor continued, added wellbutrin during admission. ??S/p psychologist. ? 7. PNC: - Rh positive, rubella non-immune??- MMR , GBS positive, posterior placenta previa. - S/p flu and??Tdap. - Tobacco use, PRN nicotine gum. - PRN hydrocortisone cream from contact dermatitis. Continue to monitor rash. - Chronic MSK pain. S/p PT consult. ??Supportive measures including massage and acupuncture as needed. 8. Hypothyroidism: - On synthroid. Last TSH 3 (12/09/16). Dose increased to 150 mcg daily, will repeat TFTs in 4 weeks from dose increase. Marleny Kang MD CHUCKING AND BORING 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 PGY-3 Physician Attestation I, Lashawn Patel, saw this patient with the resident and agree with the resident???s findings and plan of care as documented in the resident???s note. I personally reviewed vital signs, medications, labs, imaging and EFM. Vigil findings: In summary, Deann King continues to be stable with no evidence of PTL or chorioamnionitis. Plan continued inpatient management at this time. Lashawn Patel Date of Service (when I saw the patient): 12/18/16 Time Spent on this Encounter I, Lashawn Patel, spent a total of 15 minutes bedside and on the inpatient unit today managing thecare of Deann King. Over 50% of my time on the unit was spent counseling the patient and /or coordinating care regarding complicated by placenta previa and PPROM. See note for details. Lashawn Patel Tatyana Walsh MD - 12/17/2016 11:58 PM CDT Brief Progress Note (delayed due to patient care) S; patient with increased itching or left upper abdomen and now with spread of rash to upper inner arms. Discussed allergic reaction to detergents, but per patient using Tide here and uses tide and multiple other detergents at home and has never had a rash or allergy to detergents. Not using any othercreams. Has not used the cream prescribed to her over the weekend as it was not given to her. She isitching the rash. No fevers. Is having resolution of cold with congestion, but using saline spray. O: Small erythematous slightly-raised papules located on large patch of left abdomen and upper abdomen near bra-line. Minor excoriations present. Similar rash present in 8cm x6cm areas on upper inner arms. No other spread on body present. Appears consistent with regions rubbing on clothes. A/P: Likely contact dermatitis. Discussed switching detergents, but patient declines reaction in past to detergents. May be medication related, but patient on minimal medications at this time and medications she is currently on have been chronic. wellbutrin recently added yesterday, but patient has been onmed in the past and rash developed this past Friday. Hydrocortisone cream to affected areas BID. Continue to monitor. Cold wash clothes for soothing. Discussed refraining from scratching area. Tatyana Walsh MD MPH CHUCKING AND BORING 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, PGY3 Pager: [phone] 12/18/2016 12:08 AM Marleny Kang MD - 12/17/2016 12:35 PM CDT CHUCKING AND BORING 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 Progress Note Patient complaining of right ear pain. Notes some mild nasal stuffiness. Denies fever, postnasal drip, hearing changes, other signs of systemic illness including fevers. Denies history of ear infection. Gently cleans ears. Otoscopic exam without exudate or signs of infection, clear TM, no tenderness with motion. Will give debrox drops and monitor for symptoms. Marleny Kang MD CHUCKING AND BORING 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 PGY-3 Marleny Kang MD - 12/17/2016 11:29 AM CDT CHUCKING AND BORING 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 Progress Note Patient seen at bedside to sign consent form for hysterectomy. The risks, benefits, and alternatives of hysterectomy were discussed, including the risks of bleeding, infection, injuryto surrounding organs, injury. She consented to a blood transfusion in the event of a life threatening amount of bleeding. She had time to ask questions and agreed to proceed. Surgical consent was signed. She understands that hysterectomy is permanent sterilization. She has been counseled about the option of attempted placental removal and does not desire an attempt at this time. Marleny Kang MD CHUCKING AND BORING 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 PGY-3 Lashawn Patel MD - 12/17/2016 6:56 AM CDT MFM Antepartum Progress Note Subjective: Patient is without complaints, baby is active. Still having leakage of small clear fluid. Denies vaginal bleeding or contractions. States she is now considering proceeding with c-hyst as her priority is to minimize any possible bleeding. She states she understands that there may not a placenta accretaand that hysterectomy may not have been needed, but that this information will not be known until after pathology evaluation. States she understands that future will not be possible after hysterectomy. Objective: Vitals: 12/16/16 1302 12/16/16 1610 12/16/16 2332 12/17/16 0552 BP: 109/58 120/61 Pulse: Resp: Temp: 97.6 ??F (36.4 ??C) 98 ??F (36.7 ??C) 98.4 ??F (36.9 ??C) TempSrc: Oral Oral Oral Weight: 82.1 kg (181 lb) Height: Gen: Resting comfortably in bed, NAD CV: Regular rate Resp: Normal respiratory effort Abd: Gravid, non-tender, non-distended Ext: warm, well-perfused FHT: Baseline 150's, moderate variability, + accels, no decels [place]: Quiet Assessment/Plan: Deann King is a 36 year old @ 28w4d by LMP c/w 6w2d US admitted for PPROM. ? 1. PPROM: - S/p 7D??latency antibiotics. - No s/s of labor, infection. ??Will proceed toward delivery at 34 weeks or sooner for labor, infection, bleeding, or?? indications. - Twice weekly AFIs and presentation. Next 12/19??(/). Twice weekly BPPS after 28 weeks. - Q3 week growth US (next 12/29/16). - C-Hyst consent to be signed today. Tubal ligation consent and federal tubal papers signed 12/09/16. She asked that her tubal ligation not be discussed in front of anyone else. ? 2. Complete placenta previa, concern for accreta: - S/p C/S consent. ??Hx C/S x2 and uterine rupture with attempted TOLAC in last . ??Uterinerupture occurring along hysterotomy, at 38w5d. - Q72 hours T&S. IV in place at all times. - Patient to notify team of any labor concerns or vaginal bleeding. - MRI with concern for possible accreta as noted above. We had a long discussion again today regarding options for management and possible outcomes, including 1) C/S with successful placental removal 2) C/S with attempt at placenta removal and proceeding with hysterectomy as indicated by intra-operative findings (discussed possible scenarios of minimal/moderate bleeding from placental bed to risk of hemorrhage from accreta), 3) hysterectomy with pathological confirmation of accreta and 4) hysterectomy with no pathological evidence of placenta accreta. Each of these options, including risks and benefits of each option, were thoroughly discussed with Deann. She is able to express that uterine conservation is not a priority for her and that her main priority is to minimize risk for bleeding. Given this, she opts to proceed with hysterectomy without attempt at placenta removal, which is reasonable given her goals and hopeful outcomes for this complicated . ? 3. FWB: - Category 1 FHT, reactive. TID and uterine monitoring. - S/p BMZ x2 (12/07/16-12/08/16). S/p 12+ hr of magnesium for neuroprotection. S/p Indocin for tocolysis through BMZ window. - S/p NICU consult. ? 4. Hepatitis C: - Hep C viral load 7,413,209. - Notify NICU of these results prior to delivery. - Needs follow up with GI or [facility] for treatment options . ? 5. History of substance abuse: - UDS negative on admission. Continue home subutex. - S/p SW consult. - Consult anesthesiology for operative pain management. ? 6. Depression/anxiety: - Home effexor continued, stable. psych consult ordered, service to see patient 12/17. ? 7. PNC: - Rh positive, rubella non-immune??- MMR , GBS positive, posterior placenta previa. - S/p flu and Tdap. - Tobacco use, PRN nicotine gum. ? 8. Chronic neck pain - S/p PT consult. Supportive measures including massage and acupuncture as needed. Lashawn Patel Time Spent on this Encounter I, Lashawn Patel, spent a total of 15 minutes bedside and on the inpatient unit today managing thecare of Deann King. Over 50% of my time on the unit was spent counseling the patient and /or coordinating care regarding PPROM with known placenta previa. MRI concerning for possible accreta posteriorly. See note for details. Lashawn Patel Tatyana Walsh MD - 12/17/2016 12:54 AM CDT Strip Review FHT: Baseline 150s bpm, moderate variability, present accels, absent decels - appropriate for GA. [place]: no contractions No intervention needed at this time. Tatyana Walsh MD MPH CHUCKING AND BORING 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, PGY3 Pager: [phone] 12/17/2016 Lashawn Patel MD - 12/16/2016 6:54 AM CDT MFM Antepartum Progress Note Subjective: Deann is doing well today. She denies contractions, cramping, abdominal pain, fevers, chills, vaginalbleeding. Notes continued unchanged leakage. Normal movement. Objective: Vitals: 12/15/16 0830 12/15/16 1538 12/15/16 2345 12/16/16 0600 BP: 117/56 108/56 107/57 97/55 Pulse: Resp: 18 18 18 Temp: 97.2 ??F (36.2 ??C) 97.4 ??F (36.3 ??C) 97.8 ??F (36.6 ??C) 98.1 ??F (36.7 ??C) TempSrc: Oral Oral Oral Oral Weight: Height: Gen: Resting comfortably in bed, NAD CV: Regular rate Resp: Normal respiratory effort Abd: Gravid, non-tender, non-distended Ext: warm, well-perfused FHT: Baseline 140s, moderate variability, + accels, no decels [place]: 0 ctx in 10 minutes, quiet Assessment/Plan: Deann King is a 36 year old @ 28w3d by LMP c/w 6w2d US admitted for PPROM. ? 1. PPROM: - S/p 7D??latency antibiotics. - No s/s of labor, infection. ??Will proceed toward delivery at 34 weeks or sooner for labor, infection, bleeding, or?? indications. - Twice weekly AFIs and presentation. Next 12/19??(/). Twice weekly BPPS after 28 weeks. - Q3 week growth US (next 12/29/16). - C/S consent signed. Tubal ligation consent and federal tubal papers signed 12/09/16. She asked that her tubal ligation not be discussed in front of anyone else. ? 2. Complete placenta previa, concern for accreta: - S/p C/S consent. ??Hx C/S x2 and uterine rupture with attempted TOLAC in last . ??Uterinerupture occurring along hysterotomy, at 38w5d. - Q72 hours T&S. IV in place at all times. - Patient to notify team of any labor concerns or vaginal bleeding. - MRI with concern for possible accreta as noted above, will be discussed with patient further and hysterectomy consent to be signed. ? 3. FWB: - Category 1 FHT, reactive. TID and uterine monitoring. - S/p BMZ x2 (12/07/16-12/08/16). S/p 12+ hr of magnesium for neuroprotection. S/p Indocin for tocolysis through BMZ window. - S/p NICU consult. ? 4. Hepatitis C: - Hep C viral load 7,413,209. - Notify NICU of these results prior to delivery. - Needs follow up with GI or [facility] for treatment options . ? 5. History of substance abuse: - UDS negative on admission. Continue home subutex. - S/p SW consult. - Consult anesthesiology for operative pain management. ? 6. Depression/anxiety: - Home effexor continued, stable. psych consult ordered, service to see patient 12/17. ? 7. PNC: - Rh positive, rubella non-immune??- MMR , GBS positive, posterior placenta previa. - S/p flu and Tdap. - Tobacco use, PRN nicotine gum. ? 8. Chronic neck pain - S/p PT consult. Supportive measures including massage and acupuncture as needed. Marleny Kang MD CHUCKING AND BORING 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 PGY-3 Physician Attestation I, Lashawn Patel, saw this patient with the resident and agree with the resident???s findings and plan of care as documented in the resident???s note. I personally reviewed vital signs, medications, labs, imaging and EFM. Vigil findings: In summary, Deann King is a at 28w3d admitted with PPROM with known placenta previa. MRI concerning for possible accreta posteriorly. We discussed the possible management, including attempt at placenta removal and proceeding with c-hyst if clinically indicated vs c-hyst with placenta left in situ. Given low to moderate suspicion for accreta, both are options for this patient. At this point, Deann is leaning towards the former option, but wants to consider her options further before making a decision. We will continue to re-address this on rounds as well tomorrow after she has had time to consider these options. Lashawn Patel Date of Service (when I saw the patient): 12/16/16 Time Spent on this Encounter I, Lashawn Patel, spent a total of 15 minutes bedside and on the inpatient unit today managing thecare of Deann King. Over 50% of my time on the unit was spent counseling the patient and /or coordinating care regarding complicated by placenta previa and PPROM with suspected placenta accreta. See note for details. Lashawn Patel Tatyana Walsh MD - 12/16/2016 2:14 AM CDT Strip Review (note delayed due to patient care) FHT: Baseline 150s bpm, moderate variability, present accels, absent decels - appropriate for GA. [place]: no contractions No intervention needed at this time. Tatyana Walsh MD MPH CHUCKING AND BORING 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, PGY3 Pager: [phone] 12/16/2016 2:14 AM Lizabeth Petrona Escoto, DO - 12/15/2016 12:27 PM CDT MFM Antepartum Progress Note Subjective: Patient reports that she is overall feeling well today. She denies any cramping, contractions, or vaginal bleeding. She does complain of an itchy rash on her left abdomen that is red and has expanded in area it is covering. She denies any changes in soaps, laundry detergent, or lotions. She first noticed it on Friday and it has expanded over a larger area since then. Objective: Vitals: 12/14/16 2002 12/14/16 2355 12/15/16 0600 12/15/16 0830 BP: 108/60 117/59 117/56 Pulse: Resp: 18 Temp: 98.5 ??F (36.9 ??C) 98.4 ??F (36.9 ??C) 97.6 ??F (36.4 ??C) 97.2 ??F (36.2 ??C) TempSrc: Oral Oral Oral Oral Weight: Height: Gen: Resting comfortably in bed, NAD CV: Regular rate, well perfused Resp: Normal respiratory effort Abd: Gravid, non-tender, non-distended, left mid abdomen patchy erythema with excoriations approximately 15cm by 15 cm area. Ext: non-tender, no edema FHT: BL 135, moderate variability, present accelerations (10x10), absent decelerations [place]: No contractions noted 12/03 MR IMPRESSION: 1. Complete placenta previa. Unable to identify the cervix and there are T2 dark bands posteriorly and on the right. Question placental bulging posteriorly. Constellation of findings suspicious for abnormal placentation, possibly accreta. No definite percreta. 2. Oligohydramnios. Assessment: Deann King is a 36 year old @ 28w2d??by LMP c/w 6w2d US admitted for PPROM. ? 1. PPROM: - S/p 7D??latency antibiotics. - No s/s of labor, infection. ??Will proceed toward delivery at 34 weeks or sooner for labor, infection, bleeding, or?? indications. - Twice weekly AFIs and presentation. Next 12/16??(/) - Twice weekly BPPS after 28 weeks. - Q3 week growth US (next 12/29/16). - S/p BMZ course (12/07/16-12/08/16).?S/p 12+ hr of magnesium for neuroprotection. - S/p NICU consult. ??C/S consent signed. Tubal ligation consent and federal tubal papers signed 12/09/16. She asked that her tubal ligation not be discussed in front of anyone else. ? 2. Complete placenta previa, concern for accreta: - S/p C/S consent. ??Hx C/S x2 and uterine rupture with attempted TOLAC in last . ??Uterinerupture occurring along hysterotomy, at 38w5d. - Q72 hours T&S. IV in place at all times. - Patient to notify team of any labor concerns or vaginal bleeding. - MRI with concern for possible accreta as noted above ? 3. FWB: - Category 1 FHT, reactive. TID and uterine monitoring. - S/p BMZ x2 (12/07/16-12/08/16). - S/p Indocin for tocolysis through BMZ window. - S/p 12 hours of magnesium for neuroprotection. ? 4. Hepatitis C: - Hep C viral load 7,413,209 - Notify NICU of these results prior to delivery - GI consult to discuss treatment while inpatient - Needs follow up with GI or [facility] for treatment options . ? 5. History of substance abuse: - UDS negative on admission. Continue home subutex. - s/p SW consult. - Consult anesthesiology for operative pain management. ? 6. Depression/anxiety: - Home effexor continued. Increase Effexor dose if needed before adding back Wellbutrin. ? 7. PNC: - Rh positive, rubella non-immune??- MMR , GBS positive, posterior placenta previa. - S/p flu.??S/p Tdap. ? 8. Chronic Neck Pain - S/p PT consult? - Allow massage and acupuncture as needed. - continue to watch lower abdominal/ inguinale pain. ? 9. Tobacco use in -Nicotine gum available as needed for cravings 10. Erythematous patch left abdominal skin: -ordered vanicream for dry appearing skin patch. Potentially a contact dermatis made worse by scratching. -if worsens then consider hydrocortisone cream Fadumo Cyr MD OBGYN PGY3 Physician Attestation I, Petrona Barone DO, saw and evaluated Deann King with the resident. I personally reviewed the vital signs, medications, labs and imaging. My vigil history or physical exam findings: Admitted for PPROM in the setting of complete posterior/left previa with some concerning MRI findings for morbidly adherent placenta. Had 2 small (less than dime size) clots today while showering. No cramping or other bleeding. Still leaking mostly clear fluid. No fever/chills. Vigil management decisions made by me: continue inpatient management until delivery. Patient consentedfor repeat c/s, possible hyst. Will need T&S up to date. Modified bed rest. Twice weekly BPPs (). Petrona Barone DO Date of Service (when I saw the patient): 12/15/16 Time Spent on this Encounter IPetrona DO, spent a total of 15 minutes face to face or coordinating care of Reji King. Over 50% of my time on the unit was spent counseling the patient and/or coordinating care regarding placenta previa/PPROM. Petrona Barone DO - 12/14/2016 12:05 PM CDT MFM Antepartum Progress Note Subjective: Deann is feeling relatively well this morning. She reports no contractions, cramping, pelvic pressure, abdominal pain. Denies vaginal bleeding. Does report some pink tinged mucous yesterday that has improved. She reports ongoing leakage of clear fluid. Reports normal movement. Denies f sonya, chills, abdominal pain, nausea, vomiting. Objective: Vitals: 12/13/16 1300 12/13/16 2338 12/14/16 0415 12/14/16 0534 BP: 101/57 123/56 Pulse: Resp: Temp: 98.1 ??F (36.7 ??C) 98.1 ??F (36.7 ??C) 97.6 ??F (36.4 ??C) TempSrc: Oral Oral Oral Weight: Height: Gen: Resting comfortably in bed, NAD CV: Regular rate, well perfused Resp: Normal respiratory effort Abd: Gravid, non-tender, non-distended Ext: non-tender, no edema FHT: BL 150, moderate variability, present accelerations, absent decelerations [place]: No contractions noted 12/03 MR IMPRESSION: 1. Complete placenta previa. Unable to identify the cervix and there are T2 dark bands posteriorly and on the right. Question placental bulging posteriorly. Constellation of findings suspicious for abnormal placentation, possibly accreta. No definite percreta. 2. Oligohydramnios. Assessment: Deann King is a 36 year old @ 28w1d??by LMP c/w 6w2d US admitted for PPROM. ? 1. PPROM: - S/p 7D??latency antibiotics. - No s/s of labor, infection. ??Will proceed toward delivery at 34 weeks or sooner for labor, infection, bleeding, or?? indications. - Twice weekly AFIs and presentation. Next 12/16??(/) - Twice weekly BPPS after 28 weeks. - Q3 week growth US (next 12/29/16). - S/p BMZ course (12/07/16-12/08/16).?S/p 12+ hr of magnesium for neuroprotection. - S/p NICU consult. ??C/S consent signed. Tubal ligation consent and federal tubal papers signed 12/09/16. She asked that her tubal ligation not be discussed in front of anyone else. ? 2. Complete placenta previa, concern for accreta: - S/p C/S consent. ??Hx C/S x2 and uterine rupture with attempted TOLAC in last . ??Uterinerupture occurring along hysterotomy, at 38w5d. - Q72 hours T&S. IV in place at all times. - Patient to notify team of any labor concerns or vaginal bleeding. - MRI with concern for possible accreta as noted above ? 3. FWB: - Category 1 FHT, reactive. TID and uterine monitoring. - S/p BMZ x2 (12/07/16-12/08/16). - S/p Indocin for tocolysis through BMZ window. - S/p 12 hours of magnesium for neuroprotection. ? 4. Hepatitis C: - Hep C viral load 7,413,209 - Notify NICU of these results prior to delivery - GI consult to discuss treatment while inpatient - Needs follow up with GI or [facility] for treatment options . ? 5. History of substance abuse: - UDS negative on admission. Continue home subutex. - s/p SW consult. - Consult anesthesiology for operative pain management. ? 6. Depression/anxiety: - Home effexor continued. Increase Effexor dose if needed before adding back Wellbutrin. ? 7. PNC: - Rh positive, rubella non-immune??- MMR , GBS positive, posterior placenta previa. - S/p flu.??S/p Tdap. ? 8. Chronic Neck Pain - S/p PT consult? - Allow massage and acupuncture as needed. - continue to watch lower abdominal/ inguinale pain. ? 9. Tobacco use in -Nicotine gum available as needed for cravings Alice Rendon MD OBGYN PGY-3 12:05 PM 12/14/2016 Physician Attestation I, Petrona Barone DO, saw and evaluated Deann King with the resident. I personally reviewed the vital signs, medications, labs and imaging. My vigil history or physical exam findings: Having some pinkish fluid this am. No bright red bleeding. Had some spotting around 4 am and since then it has lightened up and not returned. Denies abdominal cramping. +FM. No fever/chills. Reviewed the results of the MRI which are suspicious for accreta process. Vigil management decisions made by me: Placenta previa/probable accreta with PPROM- s/p latency Abx. Continue close monitoring for bleedingor signs of IUI, abruption, labor. C/S consent + hyst signed and reviewed Keep T&S up to date Hep C- GI gave telephone recs including no tx indicated at this time. Will need to follow up outpatient. Inpatient until delivery at 34 weeks Petrona Barone DO Date of Service (when I saw the patient): 12/14/16 Time Spent on this Encounter I, Petrona Barone DO, spent a total of 15 minutes face to face or coordinating care of Reji King. Over 50% of my time on the unit was spent counseling the patient and/or coordinating care regarding placenta previa/PPROM/accreta. Erum Manzanares MD - 12/13/2016 5:19 PM CDT MFM Progress Note Spoke with GI fellow after GI consult had been placed on patient regarding Hepatitis C with viral load of 7 million in at 28w0d complicated by PPROM. Since her LFTs are normal, they don't recommend any treatment of Hepatitis C right now. They recommend a GI referral as an outpatient for treat ment as it is a 3 month treatment that they do not complete on inpatients. They also recommend doinga RUQ ultrasound with dopplers when she is discharged to get baseline imaging of her liver. Her Hep B surface antigen is NR, and they recommend we also test for Hepatitis A antibody, Hepatitis B surface antibody and Hepatitis B core antibody, which I ordered. They request that we re-consult them with additional questions or concerns. Discussed plan with patient, she is agreeable. Elizabeth Manzanares MD CHUCKING AND BORING 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 Resident PGY4 Pager [phone] 12/13/[address] - 12/13/2016 12:12 PM CDT CLINICAL NUTRITION SERVICES - ASSESSMENT NOTE Nutrition Prescription RECOMMENDATIONS FOR MDs/PROVIDERS TO ORDER: multivitamin with minerals daily Malnutrition Status: Does not meet criteria Recommendations already ordered by Registered Dietitian (RD): None Future/Additional Recommendations: 1. Encourage TID meals + snacks to meet nutrition needs. Consider oral supplements to optimize nutrition if intake not supporting weight gain goals. 2. 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 Over the past 2 weeks she has been able to keep down 3 meals/day. CURRENT NUTRITION ORDERS Diet: Regular Intake/Tolerance: Good appetite, eating TID meals. Last night ordered a second dinner to have if shebecame hungry overnight. LABS Labs reviewed MEDICATIONS Medications reviewed ANTHROPOMETRICS Height: 167.6 cm (5' 6) Current Weight: 80.3 kg (177 lb) Current BMI: 28.57 kg/m^2 Pre- Weight: unknown Pre- BMI: unknwon IBW: 59.1 kg IBW %: 136% Weight History: Patient does not know what her pre- weight was but she suspects it was nearher current weight due to sickness throughout the first trimester and into her second. Based on wt hx, pt has gained 2.7 kg in 2 months (or 0.3 kg per week). Meeting goal weight gain of 0.3 kg per week. Wt Readings from Last 10 Encounters: 12/13/16 80.3 kg (177 lb) 10/10/16 77.6 kg (171 lb) 08/29/16 79.4 kg (175 lb) 08/12/16 83.8 kg (184 lb 11.2 oz) 08/01/16 81.3 kg (179 lb 4.8 oz) 07/14/16 81.2 kg (179 lb) 06/17/16 79.6 kg (175 lb 8 oz) 04/09/16 83 kg (183 lb) 02/13/16 79.4 kg (175 lb) 01/08/16 79.8 kg (176 lb) Dosing Weight: 80.3 kg (Current weight - unclear of pre- weight) ASSESSED NUTRITION NEEDS Estimated Energy Needs: 2458 kcals/day (25 kcal/kg + 450 kcal) Justification: 3rd Trimester Estimated Protein Needs: 80-90 grams protein/day (1 grams of pro/kg + 10 grams) Justification: 3rd trimester Estimated Fluid Needs: 2450 mL/day (1 mL/kcal) Justification: Maintenance PHYSICAL FINDINGS See malnutrition section below. No abnormal nutrition-related physical findings observed. MALNUTRITION % Intake: No decreased intake noted % Weight Loss: None noted Subcutaneous Fat Loss: None observed Muscle Loss: None observed Fluid Accumulation/Edema: None noted Malnutrition Diagnosis: Patient does not meet two of the above criteria necessary for diagnosing malnutrition NUTRITION DIAGNOSIS Inadequate micronutrient intake related to no multivitamin currently ordered, hx of variable PO intakes as evidenced by pt report of hx of decreased PO although currently improving, however ongoing potential to not meet 100% of micronutrient needs through diet during . INTERVENTIONS Implementation Nutrition Education: Provided education on importance of nutritionally adequate meals TID and snacksto meet nutrition needs in and support weight gain. Multivitamin/mineral supplement therapy: recommend order MVI/minerals to meet micronutrientneeds during 3rd trimester . Goals Patient to consume 75-100% of nutritionally adequate meal trays TID, or the equivalent with supplements/snacks. Monitoring/Evaluation Progress toward goals will be monitored and evaluated per protocol. Echo Graham RD, LD Unit Pager: [phone] Nora Mohamud MD - 12/13/2016 8:50 AM CDT Images from the original note were not included. MFM Antepartum Progress Note ? Subjective: Deann is doing well today. Dr. Mohamud spoke with her about what a placenta previa and placenta accretais. She also spoke with her about the MRI. She is complaining of lower abdominal/ inguinal pain thatshe describes as being constant, non radiating with an onset of yesterday. She also has continued neck and back pain that PT is following. She denies contractions, fevers and abdominal pain. She continues to have some fluid leakage. She admits to good movement. All of her questions were answeredtoday. ? Objective: Vitals: 12/12/16 2025 12/12/16 2330 12/13/16 0330 12/13/16 0836 BP: 107/62 103/57 105/60 111/59 Pulse: Resp: 16 16 16 20 Temp: 97.6 ??F (36.4 ??C) 98.4 ??F (36.9 ??C) 97.6 ??F (36.4 ??C) 98 ??F (36.7 ??C) TempSrc: Oral Oral Oral Oral Weight: 80.3 kg (177 lb) Height: ? Gen: Resting comfortably in bed, NAD Resp: Normal respiratory effort Abd: Gravid, non-tender, non-distended Ext: warm, well-perfused ? FHT: Baseline 150, moderate??variability, +??accels, small occasional variable decels. Overall appropriate for gestational age. [place]: no contractions, quiet ? US (12/08): posterior/left complete previa, transverse, oligohydramnios with MARCELLA 4.3 cm, EFW 943 grams, 37%ile US (12/10): Echo: normal cardiac anatomy. Normal intracardiac connections, normal right and left ventricular size and function. No effusion. US 10 (): posterior left complete placenta previa, cephalic, oligohydramnios with MARCELLA 1.0cm, cervix 18.5mm and closed, placental lakes noted but placental myometrial interface appears normal. ? Assessment/Plan: Deann King is a 36 year old @ 28w0d??by LMP c/w 6w2d US admitted for HD#7??admitted forPPROM. ? 1. PPROM: - D#7/7??latency antibiotics. - No s/s of labor, infection. ??Will proceed toward delivery at 34 weeks or sooner for labor, infection, bleeding, or?? indications. - Twice weekly AFIs and presentation. Next 12/16 (/) - Twice weekly BPPS after 28 weeks. - Q3 week growth US (next 12/29/16). - S/p BMZ course (12/07/16-12/08/16).?S/p 12+ hr of magnesium for neuroprotection. - S/p NICU consult. ??C/S consent signed. Tubal ligation consent and federal tubal papers signed 12/09/16. She asked that her tubal ligation not be discussed in front of anyone else. ? 2. Complete placenta previa: - S/p C/S consent. ??Hx C/S x2 and uterine rupture with attempted TOLAC in last . ??Uterinerupture occurring along hysterotomy, at 38w5d. - Q72 hours T&S. IV in place at all times. - Patient to notify team of any labor concerns or vaginal bleeding. -- MRI pending ? 3. FWB: - Category 1 FHT, reactive. TID and uterine monitoring. - S/p BMZ x2 (12/07/16-12/08/16). - S/p Indocin for tocolysis through BMZ window. - S/p 12 hours of magnesium for neuroprotection. ? 4. Hepatitis C: - Hep C viral load 7,413,209 - Notify NICU of these results prior to delivery - GI consult to discuss treatment while inpatient - Needs follow up with GI or [facility] for treatment options . ? 5. History of substance abuse: - UDS negative on admission. ??Continue home subutex. - SW consult. - Consult anesthesiology for operative pain management. ? 6. Depression/anxiety: - Home effexor continued. Increase Effexor dose if needed before adding back Wellbutrin. ? 7. PNC: - Rh positive, rubella non-immune??- MMR , GBS positive, posterior placenta previa. - S/p flu.??S/p Tdap. ? 8. Chronic Neck Pain - s/p PT consult ?? - Allow massage and acupuncture as needed. - continue to watch lower abdominal/ inguinale pain. ?? 9. Tobacco use in - nicotine gum available as needed for cravings ? I, Mandie Marrufo, acted as a scribe for Dr. Mohamud. Mandie Marrufo, MS4 Maternal- Medicine Attending Addendum Late entry, patient seen several hours ago. I have discussed the care of Ms. King with the medical student/resident/fellow during morning rounds. Patient seen & examined by me. Agree with above, I wish to note the following: S: Pt denies contractions, VB. Reports + FM. Some LOF. O: BP 111/59 Pulse 88 Temp 98 ??F (36.7 ??C) (Oral) Resp 20 Ht 1.676 m (5' 6) Wt 80.3 kg (177 lb) LMP 05/24/2016 (Approximate) BMI 28.57 kg/m2 GEN: NAD ABD: gravid, NT, no fundal tenderness FHT: 135-150 moderate variability, + 10x10 A, small variable decelerations TOCO: no contractions NST interpretation for today: reactive, appropriate for GA A/P: 36 year old 28w0d admitted with??PPROM. ??No signs of intra- amniotic infection, overt abruption or labor. ?? We again discussed her placental position (previa) and reviewed the anatomy of the uterus and cervix. Pt is now interested in getting an MRI to evaluate for morbidly adherent placen ta; she thinks she can tolerate it. Pt is also interested in cord blood banking as well as discussing the treatment of hepatitis C with a destination sign repairer. A consultation was placed to discuss management in light of her prolonged rupture of membranes. She is aware we do not usually treat in . We also discussed that her hepatitis would exclude her from public donation of her cord blood but that we could give her some information on private hill. 1. PPROM -last day of latency antibiotics - monitor for signs and symptoms of chorioamnionitis, vaginal bleeding 2. well-being - s/p betamethasone??12/07 and 12/08 - last growth ultrasound??12/08 - qshift monitoring and prn - appreciate NICU consultation - serial assessment of amniotic fluid 3. Routine OB - continue vitamin - monitor maternal weights - s/p normal echo 4. Hypothyroidism - levothyroxine 150, serial TSH 5. Opioid dependence - continue buprenorphine, pt to let us know if she feels like she needs an increase dose, has not increased it in past pregnancies 6. Hepatitis C - s/p GI at [facility] in 2013, genotype 1a, inpatient GI consulted - normal LFTs - viral load noted to be over 7 million - will need to alert peds at time of delivery 7. Depression - continue home effexor, pt does not feel like she needs dose increase or additional medication (wellbutrin) at this time - appreciate social work consultation - are discussing psych with the patient 8. Mode of delivery - history of 2 prior cesareans, including history of uterine rupture, and placenta previa - will require repeat , desires BTL as well - MRI ordered to better evaluate placentation 9. Dispo - pt to remain in house until delivery - pt agrees with plan of care and all questions answered I spent a total of 15 minutes with Deann King, >50% of which was spent in counseling and/or coordination of care. Date of service (when I saw the patient): December 13, 2016 Nora Mohamud MD Dorr Operator, CHUCKING AND BORING 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 Maternal- Medicine [email or web address] [phone] (Academic office) [phone] (Pager) Tatyana Walsh MD - 12/13/2016 3:23 AM CDT Strip Review (Not delayed due to patient care) FHT: Baseline 150s bpm, moderate variability, prolonged accels, absent decels - appropriate for GA. [place]: no contractions No intervention required at this time. Tatyana Walsh MD MPH CHUCKING AND BORING 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, PGY3 Pager: [phone] 12/13/2016 3:23 AM Jess Bernstein LICSW - 12/12/2016 11:11 AM CDT Met with patient today and completed [employer] application. Application faxed today. SW will continue to follow Nora Mohamud MD - 12/12/2016 10:45 AM CDT Images from the original note were not included. MFM Antepartum Progress Note ? Subjective: Deann is doing well today. She admits to some occasional contractions but states this is normal for her. She continues to have some clear/ yellow fluid leakage but denies vaginal bleeding. She denies abdominal pain, fevers and other signs of infections. She admits to good movement. Dr. Mohamud informed Deann of her US results and answered all of Deann's questions. Dr. Mohamud also spokewith Deann about her tobacco use and encouraged nicotine replacement. ? Objective: Vitals: 12/11/16 1935 12/11/16 2345 12/12/16 0400 12/12/16 0817 BP: 110/70 123/60 111/59 116/67 Pulse: 102 Resp: 18 18 18 16 Temp: 98.7 ??F (37.1 ??C) 98.2 ??F (36.8 ??C) 97.9 ??F (36.6 ??C) 97.7 ??F (36.5 ??C) TempSrc: Oral Oral Oral Oral Height: ? Gen: Resting comfortably in bed, NAD Resp: Normal respiratory effort Abd: Gravid, non-tender, non-distended Ext: warm, well-perfused ? FHT: Baseline 140, moderate??variability, +??accels, occasional small decels. Overall appropriate for gestational age. [place]: no contractions, quiet ? US (12/08): posterior/left complete previa, transverse, oligohydramnios with MARCELLA 4.3 cm, EFW 943 grams, 37%ile US (12/10): Echo: normal cardiac anatomy. Normal intracardiac connections, normal right and left ventricular size and function. No effusion. US 10 (): posterior left complete placenta previa, cephalic, oligohydramnios with MARCELLA 1.0cm, cervix 18.5mm and closed, placental lakes noted but placental myometrial interface appears normal. ? Assessment/Plan: Deann King is a 36 year old @ 27w6d??by LMP c/w 6w2d US admitted for HD#6??admitted forPPROM. ? 1. PPROM: - D#6/7??latency antibiotics. - No s/s of labor, infection. ??Will proceed toward delivery at 34 weeks or sooner for labor, infection, bleeding, or indications. - Twice weekly AFIs and presentation. Next 12/16 (M/) - Twice weekly BPPS after 28 weeks. - Q3 week growth US (next 12/29/16). - S/p BMZ course (12/07/16-12/08/16).?S/p 12+ hr of magnesium for neuroprotection. - S/p NICU consult. ??C/S consent signed. Tubal ligation consent and federal tubal papers signed 12/09/16. She asked that her tubal ligation not be discussed in front of anyone else. ? 2. Complete placenta previa: - S/p C/S consent. ??Hx C/S x2 and uterine rupture with attempted TOLAC in last . ??Uterinerupture occurring along hysterotomy, at 38w5d. - Q72 hours T&S. IV in place at all times. - Patient to notify team of any labor concerns or vaginal bleeding. ? 3. FWB: - Category 1 FHT, reactive. TID and uterine monitoring. - S/p BMZ x2 (12/07/16-12/08/16). - S/p Indocin for tocolysis through BMZ window. - S/p 12 hours of magnesium for neuroprotection. ? 4. Hepatitis C: - Hep C viral load 7,413,209 - Notify NICU of these results prior to delivery - Needs follow up with GI or [employer] for treatment options . ? 5. History of substance abuse: - UDS negative on admission. ??Continue home subutex. - SW consult. - Consult anesthesiology for operative pain management. ? 6. Depression/anxiety: - Home effexor continued. Increase Effexor dose if needed before adding back Wellbutrin. ? 7. PNC: - Rh positive, rubella non-immune??- MMR , GBS positive, posterior placenta previa. - S/p flu.??Tdap ordered, will follow-up on administration. ?? 8. Chronic Neck Pain - s/p PT consult - Allow massage and acupuncture as needed. 9. Tobacco use in - nicotine gum available as needed for cravings ?? I, Mandie Marrufo, acted as a scribe for Dr. Mohamud. Mandie Marrufo, MS4 Maternal- Medicine Attending Addendum Late entry, patient seen several hours ago. I have discussed the care of Ms. King with the medical student/resident/fellow during morning rounds. Patient seen & examined by me. Agree with above, I wish to note the following: S: Pt denies contractions, VB. Reports + FM. Still with some clear LOF. O: BP 112/59 Pulse 88 Temp 97.9 ??F (36.6 ??C) (Oral) Resp 16 Ht 1.676 m (5' 6) LMP 05/24/2016 (Approximate) GEN: NAD ABD: gravid, NT, no fundal tenderness FHT: 135 min-mod variability, + 10x10 A, no D TOCO: no contractions NST interpretation for today: appropriate for GA A/P: 36 year old 27w6d admitted with??PPROM. ??No signs of intra- amniotic infection, overt abruption or labor. ?? Spent a long time today discussing placenta previa and potential for morbidly adherent placenta. On ultrasound the uteroplacental interface appears normal, but there are some placenta lakes. We discussed the possibility of MRI for further deliniation. The patient reports that she is very claustrophobic and would not tolerate an MRI. We discussed that the treatment for morbidly adherent placenta is hysterectomy at the time of delivery. We also discussed the benefits of a midline vertical skin incision, in the event that a hysterectomy is needed and/or to facilitate a BTL in the setting of her two prior cesareans with history of uterine rupture, anticipating scar tissue is present. Pt also encouraged not to leave the unit and not to smoke, encouraged to use available nicotine replacement therapies. 1. PPROM -??continue latency antibiotics - monitor for signs and symptoms of chorioamnionitis 2. well-being - s/p betamethasone??12/07 and 12/08 - last growth ultrasound??12/08 - qshift monitoring and prn - appreciate NICU consultation 3. Routine OB - continue vitamin - monitor maternal weights - s/p normal echo 4. Hypothyroidism - levothyroxine 150, serial TSH 5. Opioid dependence - continue buprenorphine, pt to let us know if she feels like she needs an increase dose, has not increased it in past pregnancies 6. Hepatitis C - s/p GI at [place] in 2014, genotype 1a - normal LFTs - viral load noted to be over 7 million - will need to alert peds at time of delivery 7. Depression - continue home effexor, pt does not feel like she needs dose increase or additional medication (wellbutrin) at this time - appreciate social work consultation - will offer psych again 8. Mode of delivery - history of 2 prior cesareans, including history of uterine rupture, and placenta previa - will require repeat , desires BTL as well 9. Dispo - pt to remain in house until delivery - pt agrees with plan of care and all questions answered I spent a total of 15 minutes with Deann King, >50% of which was spent in counseling and/or coordination of care. Date of service (when I saw the patient): December 12, 2016 Nora Mohamud MD Dorr Operator, CHUCKING AND BORING 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 Maternal- Medicine [email or web address] [phone] (Academic office) [phone] (Pager) LIOT Tatyana Walsh MD - 12/12/2016 12:53 AM CDT Strip Review (Not delayed due to patient care, services at 2200 on 12/11/2016) FHT: Baseline 140-150s bpm, moderate variability, prolonged accels, absent decels - appropriate for GA. [place]: no contractions No intervention required at this time. Tatyana Walsh MD MPH CHUCKING AND BORING 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, PGY3 Pager: [phone] 12/12/2016 12:53 AM Nora Kovacs, PT - 12/11/2016 2:58 PM CDT 12/11/16 1446 Quick Adds Type of Visit Initial PT Evaluation Living Environment Lives With significant other Living Arrangements house Self-Care Dominant Hand right Usual Activity Tolerance good Current Activity Tolerance moderate Regular Exercise no Equipment Currently Used at Home none Activity/Exercise/Self-Care Comment No formal exercise. IND with all self cares Functional Level Prior Ambulation 0-->independent Transferring 0-->independent Toileting 0-->independent Bathing 0-->independent Dressing 0-->independent Eating 0-->independent Communication 0-->understands/communicates without difficulty Swallowing 0-->swallows foods/liquids without difficulty Cognition 0 - no cognition issues reported Fall history within last six months no Which of the above functional risks had a recent onset or change? 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 36 year old at 27w1d by 6w2d ultrasound, who presents with leakage of fluid. Patient had noted abdominal cram ping today around noon, slightly different than her contractions that have been occurring constantly for weeks. She was in the car when she noted a gush of fluid and called EMS. Denies any vaginal bleeding. Reports that movement has been decreased recently. Otherwise feels well. Precautions/Limitations no known precautions/limitations Weight-Bearing Status - LUE full weight-bearing Weight-Bearing Status - RUE full weight-bearing Weight-Bearing Status - LLE full weight-bearing Weight-Bearing Status - RLE full weight-bearing Cognitive Status Examination Orientation orientation to person, place and time Level of Consciousness alert Follows Commands and Answers Questions 100% of the time Personal Safety and Judgment intact Memory intact Pain Assessment Patient Currently in Pain Yes, see Vital Sign flowsheet Posture Posture Protracted shoulders;Forward head position;Kyphosis Range of Motion (ROM) ROM Comment Not formally measured. WFL for all mobility Strength Strength Comments Not formally tested. WFL for all functional mobility. weakness in lumbar/thoracic paraspinals as well as abdominal mms Bed Mobility Bed Mobility Comments IND Transfer Skills Transfer Comments IND Gait Gait Comments IND Balance Balance Comments safe and normal sitting and standing balance Sensory Examination Sensory Perception no deficits were identified General Therapy Interventions Planned Therapy Interventions strengthening;stretching;wheelchair management/propulsion training;home program guidelines Clinical Impression Criteria for Skilled Therapeutic Intervention yes, treatment indicated PT Diagnosis neck/back pain Influenced by the following impairments pain, limited mobility d/t prolonged hospital stay, weakness, Functional limitations due to impairments bed mobility, sitting, sleeing Clinical Presentation Evolving/Changing Clinical Presentation Rationale Pts pain changing and increasing with and immobility. based on PMHx and current medical and functional status Clinical Decision Making (Complexity) Low complexity Therapy Frequency` 2 times/week Predicted Duration of Therapy Intervention (days/wks) 3 weeks Anticipated Discharge Disposition Home Risk & Benefits of therapy have been explained Yes Patient, Family & other staff in agreement with plan of care Yes [facility] TM 6 Clicks ?? 2016, Trustees of [facility], under license to [employer]. All rights reserved. 6 Clicks Short Forms Basic Mobility Inpatient Short Form [facility]??? 6 Clicks V.2 Basic Mobility Inpatient Short Form 1. Turning from your back to your side while in a flat bed without using bedrails? 4 - None 2. Moving from lying on your back to sitting on the side of a flat bed without using bedrails? 4 - None 3. Moving to and from a bed to a chair (including a wheelchair)? 4 - None 4. Standing up from a chair using your arms (e.g., wheelchair, or bedside chair)? 4 - None 5. To walk in hospital room? 4 - None 6. Climbing 3-5 steps with a railing? 4 - None Basic Mobility Raw Score (Score out of 24.Lower scores equate to lower levels of function) 24 Total Evaluation Time Total Evaluation Time (Minutes) 10 LIOT Nora Mohamud MD - 12/11/2016 11:03 AM CDT Images from the original note were not included. MFM Antepartum Progress Note ? Subjective: Deann is doing well today. She continues to have some neck pain and is willing to try acupuncture andmassage. She will also meet with physical therapy today to go over some stretches. She denies contractions, vaginal bleeding, further loss of fluid, abdominal pain and fevers. She admits to good movement. She asked today why she needed to be re-typed and screened and Dr. Mohamud was able to answerthis question for her. She had no other questions or complaints. ? Objective: Vitals: 12/10/16 1950 12/10/16 2345 12/11/16 0405 12/11/16 0825 BP: 129/77 117/61 113/55 122/61 Pulse: 100 Resp: 16 18 16 16 Temp: 98.6 ??F (37 ??C) 98.3 ??F (36.8 ??C) 97.7 ??F (36.5 ??C) 98 ??F (36.7 ??C) TempSrc: Oral Oral Oral Height: ? Gen: Resting comfortably in bed, NAD Resp: Normal respiratory effort Abd: Gravid, non-tender, non-distended Ext: warm, well-perfused ? FHT: Baseline 150, moderate??variability, +??accels, occasional small decels. Overall appropriate for gestational age. [place]: no contractions, quiet ? US (12/08): posterior/left complete previa, transverse, oligohydramnios with MARCELLA 4.3 cm, EFW 943 grams, 37%ile US (12/10): Echo: normal cardiac anatomy. Normal intracardiac connections, normal right and left ventricular size and function. No effusion. ? Assessment/Plan: Deann King is a 36 year old @ 27w5d??by LMP c/w 6w2d US admitted for HD#5??admitted forPPROM. ? 1. PPROM: - D#5/7??latency antibiotics. - No s/s of labor, infection. ??Will proceed toward delivery at 34 weeks or sooner for labor, infection, bleeding, or indications. - Twice weekly AFIs and presentation. Next 12/12 (M/) - Twice weekly BPPS after 28 weeks. - Q3 week growth US (last 12/08). - S/p BMZ course (12/07/16-12/08/16).?S/p 12+ hr of magnesium for neuroprotection. - S/p NICU consult. ??C/S consent signed. Tubal ligation consent and federal tubal papers signed 12/09/16. She asked that her tubal ligation not be discussed in front of anyone else. ? 2. Complete placenta previa: - S/p C/S consent. ??Hx C/S x2 and uterine rupture with attempted TOLAC in last . ??Uterinerupture occurring along hysterotomy, at 38w5d. - Q72 hours T&S. IV in place at all times. - Patient to notify team of any labor concerns or vaginal bleeding. ? 3. FWB: - Category 1 FHT, reactive. TID and uterine monitoring. - S/p BMZ x2 (12/07/16-12/08/16). - S/p Indocin for tocolysis through BMZ window. - S/p 12 hours of magnesium for neuroprotection. ? 4. Hepatitis C: - Hep C viral load 7,413,209 - Notify NICU of these results prior to delivery - Needs follow up with GI or [employer] for treatment options . ? 5. History of substance abuse: - UDS negative on admission. ??Continue home subutex. - SW consult. - Consult anesthesiology for operative pain management. ? 6. Depression/anxiety: - Home effexor continued. Increase Effexor dose if needed before adding back Wellbutrin. ? 7. PNC: - Rh positive, rubella non-immune??- MMR , GBS positive, posterior placenta previa. - S/p flu.??Tdap ordered, will follow-up on administration. ?? 8. Chronic Neck Pain - PT consult for stretches. - Allow massage and acupuncture as needed. ?? I, Mandie Marrufo, acted as a scribe for Dr. Mohamud. Mandie Marrufo, MS4 Maternal- Medicine Attending Addendum Late entry, patient seen several hours ago. I have discussed the care of Ms. King with the medical student/resident/fellow during morning rounds. Patient seen & examined by me. Agree with above, I wish to note the following: S: Pt denies contractions, LOF, VB. Reports + FM. O: BP 122/61 Pulse 100 Temp 98 ??F (36.7 ??C) (Oral) Resp 16 Ht 1.676 m (5' 6) LMP 05/24/2016 (Approximate) GEN: NAD ABD: gravid, NT FHT: 135-140 w/ moderate variability, + A, no D TOCO: no contractions NST interpretation for today: reactive, appropriate for GA A/P: 36 year old 27w5d admitted with admitted with PPROM. ??No signs of intra-amniotic infection, overt abruption or labor. ?? 1. PPROM -??continue latency antibiotics - monitor for signs and symptoms of chorioamnionitis 2. well-being - s/p betamethasone??12/07 and 12/08 - last growth ultrasound??12/08 - qshift monitoring and prn - appreciate NICU consultation 3. Routine OB - continue vitamin - monitor maternal weights - s/p normal echo 4. Hypothyroidism - levothyroxine 150, serial TSH 5. Opioid dependence - continue buprenorphine, pt to let us know if she feels like she needs an increase dose, has not increased it in past pregnancies 6. Hepatitis C - s/p GI at [facility] in 2013, genotype 1a - normal LFTs - viral load noted to be over 7 million - will need to alert peds at time of delivery 7. Depression - continue home effexor, pt does not feel like she needs dose increase or additional medication (wellbutrin) at this time - appreciate social work consultation - psych consult placed 8. Mode of delivery - history of 2 prior cesareans, including history of uterine rupture, and placenta previa - will require repeat , desires BTL as well - posterior placenta, a-priori risk of accreta is ~ 40%, although no evidence on ultrasound, will consider further imaging - discussed the possibility of midline vertical skin incision due to complicated surgical history and to complete BTL 9. Dispo - pt to remain in house until delivery - pt agrees with plan of care and all questions answered I spent a total of 15 minutes with Deann King, >50% of which was spent in counseling and/or coordination of care. Date of service (when I saw the patient): December 11, 2016 Nora Mohamud MD Dorr Operator, CHUCKING AND BORING 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 Maternal- Medicine [email or web address] [phone] (Academic office) [phone] (Pager) Tatyana Walsh MD - 12/10/2016 11:23 PM CDT Strip Review FHT: Baseline 150s bpm, moderate variability, present accels, absent decels - appropriate for GA. [place]: no contractions No intervention needed at this time. Tatyana Walsh MD MPH CHUCKING AND BORING 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, PGY3 Pager: [phone] 12/10/2016 11:24 PM Jess Bernstein, [facility] - 12/10/2016 11:49 AM CDT [facility] SOCIAL WORK PROGRESS NOTE DATA: Met with Deann to assess needs and to offer support. Patient is 36 year-old, Deann King. She and her , Rafal have been for two years. They live in subsidized housing in [place], [place]. Deann and Rafal know they are expecting a baby boy and have chosen the name John. This is Deann's 9th baby. She shared details about her other children: Nadja 20 years-old-- She is self-sufficient and mostly living on her own Hui - 11 years-old Deann placed her for adoption with family members (brother and his ) after Nathan- 10 years-old Champ - 7 years-old Jah - of SIDS in January 2012 at 4 1/2 months of age Ron - 4 years-old Juan M - born with a congenital heart defect and was in the NICU at [facility]. in November 2014 at 5 1/2 months of age Jennifer - 19.3 week gestation loss in 2015 Rafal is the biological father of Juan M, Jennifer, and baby John. The father of the older childrenhas a serious and persistent mental illness and is not involved. Rafal is a father figure in theirlife. Deann's parents live close to them and they are caring for the 4,7, and 10 year- olds so that Rafal can continue to work while Deann is hospitalized. While they are willing and able to care for the kids, Deann's parents are older and this is a physical and financial hardship for them. Rafal and Deann are doing what they can to minimize this burden. Deann is not currently employed. 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 Rafal works at a factory in [place].Rafal does not have his regional dedicated truck driver's license. Deann did not offer details about this but did share he has multiple fines to pay before his license can be re-instated. A lack of transportation for Rafal is a major stressor for Deann. This limits his ability to be here to support her. It also impacts his ability to get to work. JACKIE offered to write a letter outlining family's current stressors and to request a provisional license renewal for Rafal that would allow him to drive to work and to the hospital. Deann will discuss this further with Rafal and will let me know if this is something that would be helpful. Deann has [facility], talamantes and food assistance benefits through [facility]. Baby Lopez will be added to these programs upon . Deann would like to switch her MA to [employer] and is asking for SW assistance with this. Encouraged Deann to contact [facility] Economic Assistance and ask to speak to a financial worker to see what is needed to make this change. Deann is not currently enrolled in [facility] but is interested in application for these benefits. JACKIE contacted [facility] today and message left for the [employer] to see if it is possible to enroll Deann and her 4 year-old son in [facility] while Deann is hospitalized. Deann has only limited baby supplies-- some clothing and a swing. can provide assistance with a Pack N Play and diapers from [employer]. Deann has history of chemical abuse. She shared details about her addiction and abuse of opiates - primarily Oxycontin and heroine. She completed inpatient CD treatment a couple of times in the past buthas now been sober for 8 years. She is on Subutex and follows closely with Dr. Alfredo. Deann struggles with depression and anxiety. It is difficult for her to articulate details (duration and severity of symptoms) about her mental health. Social work attempted to explore more about Deann'smood and her grief response. She describes deep sadness related to the of her babies but then states, I'm a bit better now since starting the Effexor. She has accessed therapy in the past and had EMDR. Deann thinks this therapy was somewhat helpful but also recognizes she is strained in opening-up. Discussed availability of psychology for additional support and assessment and Deann is receptive to this while she is hospitalized. Deann acknowledges history of child protection involvement with her family. She relates this to family dynamics when she was still to her first and he was living in the home. The child protection case was closed once the father of the older children was no longer involved and in the home. Deann learned from this experience that having an ongoing child protective services social worker can be helpful to her and to her children. She has been working with a SW at [facility] (Francisco [phone]) . Deann identifiesthis SW at very supportive. Deann has signed a GIOVANNA to enable me to coordinate SW services. I contacted Francisco today and message left requesting that she page me to discuss Deann's needs in more detail. INTERVENTION: Psychosocial assessment initiated. Provided supportive counseling related to Deann's complicated social history and current situation. Other interventions noted above. ASSESSMENT: Deann is stressed. Despite the impact this hospitalization has on her family system-- she is motivated to do whatever is necessary to sustain this and seems accepting of the medical plan for continued hospitalization. Limited family finances and need for resources (i.e. Respite for the children with grandparents, WIC) are her primary concerns. Support system appears limited. She is receptiveto ongoing social work involvement and support. PLAN: SW will continue to follow LIOT Nora Mohamud MD - 12/10/2016 8:27 AM CDT Images from the original note were not included. MFM Antepartum Progress Note ?? Subjective: Today we spoke with Deann about her hypothyroidism and yesterday's TSH results. She describes feelingoverly tired for the last few weeks and states she seems more fatigued with this compared to her others. We discussed increasing her synthroid and she was agreeable to this. We also spoke with Deann about her antidepressant medications. She takes Effexor daily and states she does not want to stop this medication. At one point she was taking Wellbutrin off and on for smoking cessation and states that it did help with her mood. After some discussion we decided to keep her on the Effexor only and if she feels she needs more help we can increase her Effexor dose before starting a second medication. She was in agreement with this plan. Deann asked us about the plan for her Subutex during and after her delivery. We will have an anesthesiology consult so they can discuss her operative pain management. Deann was relieved to hear the results from her echo today from the ux interaction designer. She informed us everything looked normal. She did complain of neck pain today that she states is a chronic problem but is always worse in . She thinks it is worsened by looking at the US screen and possibly from her bed. She is interested in trying massage and acupuncture. Deann states she has good movement. She denies vaginal bleeding, contractions, fever and abdominal pain. She had no other questions today. ? Objective: Vitals: 12/09/16 1330 12/09/16 1645 12/09/16 2102 12/10/16 0055 BP: 126/74 122/72 Pulse: Resp: 16 16 Temp: 98.1 ??F (36.7 ??C) 98.4 ??F (36.9 ??C) 98.1 ??F (36.7 ??C) 97.9 ??F (36.6 ??C) TempSrc: Oral Oral Oral Oral Height: ?? Gen: Resting comfortably in bed, NAD Resp: Normal respiratory effort Abd: Gravid, non-tender, non-distended Ext: warm, well-perfused ?? FHT: Baseline 150, moderate variability, + accels, occasional small decels. Overall appropriate for gestational age. [place]: 1 contraction in 1 hour, not felt by patient. ?? US (12/08): posterior/left complete previa, transverse, oligohydramnios with MARCELLA 4.3 cm, EFW 943 grams, 37%ile US (12/10): Echo: normal cardiac anatomy. Normal intracardiac connections, normal right and left ventricular size and function. No effusion. ? Assessment/Plan: Deann King is a 36 year old @ 27w4d by LMP c/w 6w2d US admitted for HD#4 admitted for PPROM. ? 1. PPROM: - D#4/7 latency antibiotics. - No s/s of labor, infection. ??Will proceed toward delivery at 34 weeks or sooner for labor, infection, bleeding, or indications. - Twice weekly AFIs and presentation. Next 12/13 (/) - Twice weekly BPPS after 28 weeks. - Q3 week growth US (last 12/08). - S/p BMZ course (12/07/16-12/08/16). ??S/p 12+ hr of magnesium for neuroprotection. - S/p NICU consult. ??C/S consent signed. Tubal ligation consent and federal tubal papers signed 12/09/16. She asked that her tubal ligation not be discussed in front of anyone else. ? 2. Complete placenta previa: - S/p C/S consent. ??Hx C/S x2 and uterine rupture with attempted TOLAC in last . Uterine rupture occurring along hysterotomy, at 38w5d. - Q72 hours T&S. IV in place at all times. - Patient to notify team of any labor concerns or vaginal bleeding. ? 3. FWB: - Category 1 FHT, reactive. TID and uterine monitoring. - S/p BMZ x2 (12/07/16-12/08/16). - S/p Indocin for tocolysis through BMZ window. - S/p 12 hours of magnesium for neuroprotection. ? 4. Hepatitis C: - Hep C viral load [id number] - Notify NICU of these results prior to delivery - Needs follow up with GI or Equ[facility] Trader for treatment options . ? 5. History of substance abuse: - UDS negative on admission. ??Continue home subutex. - SW consult. - Consult anesthesiology for operative pain management. ? 6. Depression/anxiety: - Home effexor continued. Increase Effexor dose if needed before adding back Wellbutrin. ? 7. PNC: - Rh positive, rubella non-immune - MMR , GBS positive, posterior placenta previa. - S/p flu. Tdap ordered, will follow-up on administration. 8. Chronic Neck Pain - PT consult for stretches. - Allow massage and acupuncture as needed. I, Mandie Marrufo, acted as a scribe for Dr. Mohamud. Mandie Marrufo, MS4 Maternal- Medicine Attending Addendum Late entry, patient seen several hours ago. I have discussed the care of Ms. King with the medical student/resident/fellow during morning rounds. Patient seen by me. Agree with above, I wish to note the following: S: Pt denies contractions, VB. Reports + FM. O: BP 122/72 Pulse 88 Temp 97.9 ??F (36.6 ??C) (Oral) Resp 16 Ht 1.676 m (5' 6) LMP 05/24/2016 (Approximate) GEN: NAD ABD: gravid, NT FHT: 155 w/ moderate variability, reactive TOCO: no contractions NST interpretation for today: reactive, appropriate for GA A/P: 36 year old 27w4d admitted with PPROM. No signs of intra-amniotic infection. 1. PPROM - continue latency antibiotics - monitor for signs and symptoms of chorioamnionitis 2. well-being - s/p betamethasone 12/07 and 12/08 - last growth ultrasound 12/08 - qshift monitoring and prn - appreciate NICU consultation 3. Routine OB - continue vitamin - monitor maternal weights - s/p normal echo 4. Hypothyroidism - increase levothyroxine, recheck TSH in 4 weeks 5. Opioid dependence - continue buprenorphine, pt to let us know if she feels like she needs an increase dose, has not increased it in past pregnancies 6. Hepatitis C - s/p GI at [facility] in 2013, genotype 1a - normal LFTs - viral load noted to be over 7 million - will need to alert peds at time of delivery 7. Depression - continue home effexor, pt does not feel like she needs dose increase or additional medication (wellbutrin) at this time - appreciate social work consultation - psych consult placed 8. Mode of delivery - history of 2 prior cesareans, including history of uterine rupture, and placenta previa - will require repeat , desires BTL as well - posterior placenta, a-priori risk of accreta is ~ 40%, although no evidence on ultrasound, will consider further imaging - discussed the possibility of midline vertical skin incision due to complicated surgical history and to complete BTL 9. Dispo - pt to remain in house until delivery - pt agrees with plan of care and all questions answered I spent a total of 15 minutes with Deann Maycol Fernando, >50% of which was spent in counseling and/or coordination of care. Date of service (when I saw the patient): December 10, 2016 Nora Mohamud MD Dorr Operator, CHUCKING AND BORING 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 Maternal- Medicine [email or web address] [phone] (Academic office) [phone] (Pager) ?? Tatyana Walsh MD - 12/09/2016 10:46 PM CDT Strip Review FHT: Baseline 150s bpm, moderate variability, present accels, absent decels - appropriate for GA. [place]: 1 contractions/30 mins No intervention needed at this time. Hypothyroidism - TSH returned at normal range - no change to current synthroid needed. Depression - pending psych consult at this time. Continue home effexor. Tatyana Walsh MD MPH CHUCKING AND BORING 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, PGY3 Pager: [phone] 12/09/2016 10:46 PM Nora Mohamud MD - 12/09/2016 6:36 AM CDT Images from the original note were not included. MFM Antepartum Progress Note Subjective: She is feeling well this morning, just tired. Denies cramping, contractions, vaginal bleeding. Continues to have note leakage of clear fluid. Denies abdominal pain, fever/chills. Objective: Vitals: 12/08/16 1900 12/08/16 2200 12/08/16 2345 12/09/16 0535 BP: 130/68 111/60 Pulse: 88 Resp: 18 Temp: 98.2 ??F (36.8 ??C) 97.8 ??F (36.6 ??C) 97.8 ??F (36.6 ??C) 97.9 ??F (36.6 ??C) TempSrc: Oral Oral Oral Oral Height: Gen: Resting comfortably in bed, NAD CV: Regular rate Resp: Normal respiratory effort Abd: Gravid, non-tender, non-distended Ext: warm, well-perfused FHT: Baseline 130s, moderate variability, + accels, no decels [place]: quiet, 0 ctx in 10 minutes US (12/08): posterior/left complete previa, transverse, oligohydramnios with MARCELLA 4.3 cm, EFW 943 grams, 37%ile ?? Assessment/Plan: Deann King is a 36 year old @ 27w3d by LMP c/w 6w2d US admitted for HD#3 admitted for PPROM. ?? 1. PPROM: - D#3/7 latency antibiotics. - No s/s of labor, infection. Will proceed toward delivery at 34 weeks or sooner (labor, infection, bleeding, indications). - Twice weekly BPPs. - Q3 week growth US (last 12/08). - S/p BMZ course (12/07-). S/p 12+ hr of magnesium for neuroprotection. - S/p NICU consult. C/S consent signed. Signed consent form for tubal ligation today including federal tubal papers. Risks of tubal ligation were discussed including permanency, risk of regret, failurerates, risk of ectopic if occurs. She agreed to proceed; does not want this to be discussed in front of any one else. ?? 2. Complete placenta previa: - S/p C/S consent. Hx C/S x2 and uterine rupture with attempted TOLAC in last . Uterine rupture occurring along hysterotomy, at 38w5d. - Q72 hours T&S. IV in place at all times. - Patient to notify team of any labor concerns or vaginal bleeding. ?? 3. FWB: - Category 1 FHT, reactive. TID and uterine monitoring. - S/p BMZ x2 (12/07-). - S/p Indocin for tocolysis through BMZ window. - S/p 12 hours of magnesium for neuroprotection. ?? 4. Hepatitis C: - Repeat labs drawn, will follow-up on results. LFTs wnl. ?? 5. History of substance abuse: - UDS negative on admission. Continue home subutex. - SW consult. ?? 6. Depression/anxiety: - Home effexor continued. ?? 7. PNC: - Rh positive, rubella non-immune - MMR , GBS positive, posterior placenta previa. - S/p flu. Tdap ordered, will follow-up on administration. Marleny Kang MD CHUCKING AND BORING 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 PGY-3 Maternal- Medicine Attending Addendum Late entry, patient seen several hours ago. I have discussed the care of Ms. King with the medical student/resident/fellow during morning rounds. Patient seen & examined by me. Agree with above, I wish to note the following: S: Pt denies contractions, VB. Reports + FM. O: BP 110/58 Pulse 88 Temp 98.1 ??F (36.7 ??C) (Oral) Resp 18 Ht 1.676 m (5' 6) LMP 05/24/2016 (Approximate) GEN: NAD ABD: gravid, NT, no fundal tenderness FHT: 120-125 w/ moderate variability, + A, no D TOCO: no contractions NST interpreteration: reactive, appropriate for GA A/P: 36 year old 27w3d admitted with PPROM. No signs of intra-amniotic infection. 1. PPROM - continue latency antibiotics - monitor for signs and symptoms of chorioamnionitis 2. well-being - s/p betamethasone 12/07 and 12/08 - last growth ultrasound 12/08 - qshift monitoring and prn - appreciate NICU consultation 3. Routine OB - continue vitamin - monitor maternal weights - needs echo due to history of previous with congenital heart disease 4. Hypothyroidism - continue levothyroxine - due for routine TSH to assess therapy adequacy, ordered 5. Opioid dependence - continue buprenorphine 6. Hepatitis C - s/p GI at [facility] in 2013, genotype 1a - normal LFTs - viral load noted to be over 7 million - will need to alert peds at time of delivery 7. Depression - continue home effexor, will clarify whether she is taking wellbutrin as well and whether she is taking it for depression or smoking cessation - appreciate social work consultation - psych consult placed 8. Mode of delivery - history of 2 prior cesareans, including history of uterine rupture, and placenta previa - will require repeat , desires BTL as well - posterior placenta, a-priori risk of accreta is ~ 40%, although no evidence on ultrasound, will consider further imaging - discussed the possibility of midline vertical skin incision due to complicated surgical history and to complete BTL 9. Dispo - pt to remain in house until delivery - pt agrees with plan of care and all questions answered I spent a total of 15 minutes with Deann King, >50% of which was spent in counseling and/or coordination of care. Date of service (when I saw the patient): December 09, 2016 Nora Mohamud MD Dorr Operator, CHUCKING AND BORING 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 Maternal- Medicine [email or web address] [phone] (Academic office) [phone] (Pager) Tatyana Walsh MD - 12/08/2016 7:58 PM CDT Strip Review FHT: Baseline 150s bpm, moderate variability, present accels, absent decels - appropriate for GA. [place]: no contractions, uterine irritability Tatyana Walsh MD MPH CHUCKING AND BORING 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, PGY3 Pager: [phone] 12/08/2016 8:00 PM Italia Galarza DO - 12/08/2016 11:28 AM CDT MFM Antepartum Progress Note Late entry from 1000 due to ongoing patient care Subjective: Deann is feeling well this morning without complaints. She notes that cramping has resolved. Denies contractions, vaginal bleeding. Continues to leak some fluid. Notes normal movement. She has questions this morning about the placenta previa and her plan of care. Objective: Vitals: 12/07/16 2325 12/08/16 0229 12/08/16 0644 12/08/16 0800 BP: 104/54 116/66 103/56 102/55 Pulse: 91 Resp: 18 16 16 Temp: 98 ??F (36.7 ??C) 97.9 ??F (36.6 ??C) 98.1 ??F (36.7 ??C) 97.7 ??F (36.5 ??C) TempSrc: Oral Axillary Oral Oral Height: Gen: Resting comfortably in bed, NAD CV: Regular rate Resp: Normal respiratory effort Abd: Gravid, non-tender, non-distended Ext: warm, well-perfused FHT: Baseline 140s, moderate variability, + accels, no decels [place]: 0 ctx in 10 minutes US (12/08): posterior/left complete previa, transverse, oligohydramnios with MARCELLA 4.3 cm, EFW 943 grams, 37%ile Please see Imaging tab under Chart Review for details of today's US. Assessment/Plan: Deann King is a 36 year old @ 27w2d by LMP c/w 6w2d US admitted for PPROM. 1. PPROM: - D#2/7 latency antibiotics. - No s/s of labor, infection. Will proceed toward delivery at 34 weeks or sooner (labor, infection, bleeding, indications). - Twice weekly BPPs. - Q3 week growth US (last 12/08). - Plan for BMZ course, s/p #1. S/p 12+ hr of magnesium for neuroprotection. - S/p NICU consult. C/S consent signed. 2. Complete placenta previa: - S/p C/S consent. Hx C/S x2 and uterine rupture with attempted TOLAC in last . - Q72 hours T&S. - Patient to notify team of any labor concerns or vaginal bleeding. 3. FWB: - Category 1 FHT, reactive. Will change to TID monitoring. - S/p BMZ x1, will repeat second dose today. - Indocin for tocolysis through BMZ window. - Mag for neuroprotection, will discontinue this morning given >12 hours. 4. Hepatitis C: - Repeat labs drawn, will follow-up on results. LFTs wnl. 5. History of substance abuse: - UDS negative on admission. Continue home subutex. - SW consult. 6. Depression/anxiety: - Home effexor continued. 7. PNC: - Rh positive, rubella equivocal - MMR , GBS positive, posterior placenta previa. - Flu and Tdap ordered today. Marleny Kang MD CHUCKING AND BORING 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 PGY-3 Attending Attestation: I agree with the residents note above. I spent 15 minutes total [id number] with this inpatient, and >50% of the time was spent in counseling and/or coordination of care. Italia Galarza DO Maternal Medicine Rossana Barker MD - 12/08/2016 2:23 AM CDT Obstetrics & Gynecology Service Magnesium Check Note S: Patient is feeling well. Reports mild headache. Denies any further cramping. Denies chest pain orshortness of breath. O: Patient Vitals for the past 4 hrs: BP Temp Temp src Resp 12/07/16 2325 104/54 98 ??F (36.7 ??C) Oral 18 12/07/16 2251 - 98.2 ??F (36.8 ??C) Oral - Gen: NAD CV: RRR, no murmurs Pulm: CTAB, no wheezes or crackles Ext: Patellar reflexes 2+ b/l, scant edema A/P: Deann King is a 36 year old at 27w2d admitted for PPROM. On magnesium for neuroprotection. If stable in AM consider discontinuation as labor is no longer imminent. Stable without signs of toxicity at this time. Rossana Barker MD Base Draw Operator, PGY-3 12/08/2016, 2:23 AM documented in this encounter H&P Notes Nora Leyva MD - 12/07/2016 3:06 PM CDT [facility] OB History and Physical Deann King Age: [age] year old Date of : 1980 CC: Leakage of fluid HPI: Ms. Deann King is a 36 year old at 27w1d by 6w2d ultrasound, who presents with leakage of fluid. Patient had noted abdominal cramping today around noon, slightly different than her contractions that have been occurring constantly for weeks. She was in the car when she noted a gush of fluid and called EMS. Denies any vaginal bleeding. Reports that movement has been decreased recently. Otherwise feels well. Complications: - Hx of C/S x2 - Hx of uterine rupture with attempted TOLAC - Partial posterior placenta previa on US last 10/31. - Hx of PTD w/ demise at 19w3d - Hx of demise x2 (SIDS, heart defect) - Hx of substance abuse on subutex daily - Hx of Hep C, has not followed up GI - Hx of anxiety and depression on effexor - Tobacco use in Labs: Lab Results Component Value Date ABO B 10/10/2016 RH Pos 10/10/2016 Neg 10/10/2016 HEPBANG Nonreactive 10/10/2016 CHPCRT 08/29/2016 Negative Negative for C. trachomatis rRNA by hardware technician mediated amplification. A negative result by hardware technician mediated amplification does not preclude the presence of C. trachomatis infection because results are dependent on proper and adequate collection, absence of inhibitors, and sufficient rRNA to be detected. GCPCRT 08/29/2016 Negative Negative for N. gonorrhoeae rRNA by hardware technician mediated amplification. A negative result by hardware technician mediated amplification does not preclude the presence of N. gonorrhoeae infection because results are dependent on proper and adequate collection, absence of inhibitors, and sufficient rRNA to be detected. TREPAB Negative 10/10/2016 HGB 9.4 (L) 12/07/2016 GBS Status: No results found for: GBS Ultrasounds 1. 10/31/16: OB History Obstetric History T7 L5 SAB0 TAB0 Ectopic0 Multiple0 Live Births7 # Outcome Date GA Lbr Sherman/2nd Weight Sex Delivery Anes PTL Lv 9 Current 8 07/20/16 19w3d / 01:06 0.325 kg (11.5 oz) U Vag-Spont FD Apgar1: 0 Apgar5: 0 7 Term 2014 CS-LTranv NINA 6 Term 2009 CS-LTranv NINA 5 Term NINA 4 Term NINA 3 Term NINA 2 Term DEC 1 Term DEC PMHx: Past Medical History: Diagnosis Date ??? Anxiety ??? Chronic hepatitis C (H) ??? Depressive disorder ??? Hypothyroid ??? Suboxone maintenance treatment complicating , antepartum (H) PSHx: Past Surgical History: Procedure Laterality Date ??? BREAST SURGERY ABcess drained ??? SECTION ??? GRILL ASSOCIATE SURGERY ??? ORTHOPEDIC SURGERY ??? THORACIC SURGERY Meds: Prescriptions Prior to Admission Medication Sig Dispense Refill Last Dose ??? ACETAMINOPHEN PO 12/07/2016 at 0900 ??? omeprazole 20 MG tablet Take 1 tablet (20 mg) by mouth daily 30 tablet 1 12/07/2016 at Unknown time ??? buprenorphine (SUBUTEX) 2 MG SUBL sublingual tablet Place 1 tablet (2 mg) under the tongue 5 times daily 120 tablet 0 11/30/2016 at Unknown time ??? WELLBUTRIN SR 150 MG 12 hr tablet Take 1 tablet (150 mg) by mouth 2 times daily 60 tablet 1 11/30/2016 at Unknown time ??? diphenhydrAMINE (BENADRYL ALLERGY) 25 MG tablet Take 1 tablet (25 mg) by mouth every 8 hours as needed for itching or allergies 60 tablet 1 Past Month at Unknown time ??? folic acid (FOLVITE) 1 MG tablet Take 1 tablet (1 mg) by mouth daily 100 tablet 3 Past Month at Unknown time ??? buprenorphine HCl-naloxone HCl (SUBOXONE) 2-0.[address] 1 Film under the tongue 5 times daily 25 Film 0 Unknown at Unknown time ??? venlafaxine (EFFEXOR-XR) 150 MG 24 hr capsule Take 2 capsules (300 mg) by mouth daily 60 capsule1 11/30/2016 at Unknown time ??? DiphenhydrAMINE HCl (BENADRYL ALLERGY PO) Take by mouth as needed Past Month at Unknown time ??? levothyroxine (SYNTHROID, LEVOTHROID) 125 MCG tablet Take 1 tablet by mouth daily 11/30/2016 at Unknown time Allergies: No Known Allergies FmHx: Family History Problem Relation Age of Onset ??? Depression Mother ??? Psychotic Disorder Mother ??? Thyroid Disease Mother ??? Depression Brother ??? Depression Brother ??? Asthma Son SocHx: She reports tobacco and subutex use ROS: Complete 10-point ROS negative except as noted in HPI PE: Vit: Patient Vitals for the past 4 hrs: BP Temp Temp src Resp Height 12/07/16 1419 125/72 98.1 ??F (36.7 ??C) Oral 16 1.676 m (5' 6) Gen: Well-appearing, NAD, comfortable CV: rrr, no mrg Pulm: Ctab, no wheezes or crackles Abd: Soft, gravid, non-tender SSE: Pooling, cervix appears multiparous but closed, no bleeding noted from the os Pres: Cephalic by BSUS Memb: Grossly ruptured clear fluid FHT: Baseline 150, moderate variability, no accelerations, no decelerations [place]: 0 contractions in 10 minutes Assessment Ms. Deann King is a 36 year old , at 27w1d by 6w2d US, who presents with PPROM. Patient reporting irregular contractions and at this time appears very comfortable, do not suspect labor at this time. Not picking up contractions on monitoring. Will administer BMZ for lung maturity and indocin for tocolysis through the BMZ window. Patient will need C/S if she labors with history of 2 prior C/S, hx of uterine rupture and last US with posterior previa noted. Plan PPROM: Grossly ruptured with pooling on speculum exam - Will start latency antibiotics, D1/7 - Hope to delay labor/delivery until 34 weeks, monitor for signs of infection - Will need C/S delivery, consented - Wet prep negative - Gonorrhea/Chlamydia pending - follow-up urine culture Concern for labor: - Continuous tocometry - Indocin for tocolysis through BMZ window - Will collect abruption labs - NICU consult Partial posterior placenta previa: On last US 10/31. Difficult to evaluate on BSUS today - Will need C/S for delivery - Plan for US evaluation tomorrow Chronic Hep C: Last viral load elevated 10/10/16 - repeat Hep C viral load - Needs GI follow-up - LFTs within normal limits FWB: Category I FHT. Continue EFM and toco PNC: Rh positive, Rubella equivocal - pending, GBS unknown- collected, GCT none - glucose 88 on CMP.Undecided about control, may consider tubal ligation Fen/GI: NPO currently, IVF The patient was discussed with Dr. Leyva who is in agreement with the treatment plan. Rossana Barker MD OBGYN PGY-3 3:37 PM 12/07/2016 Staff MD Note I appreciate the note by Dr. Barker. Any necessary changes have been made by me. I evaluated the patient with the resident and agree with the assessment and plan. Nora Leyva MD documented in this encounter Consult Notes Sofía Cao APRN CNP - 12/20/2016 4:09 PM CDTAssociated Order(s): NURSE PRACT IP CONSULT Consult completed on 12/07. Sofía Cao APRN, CNP, 12/20/2016 4:09 PM [facility] Int[facility] So Onofre PsyD - 12/17/2016 4:53 PM CDTAssociated Order(s): MENTAL HEALTH IP CONSULT Images from the original note were not included. Mental Health Inpatient Consult PATIENT'S NAME: Deann King : 1980 DATE OF SERVICE: @dateofservice@ START TIME: 3:00 END TIME: 3:50 CONSULT LENGTH: 50 minutes Identifying Information: Patient is a 36 year old year old, , female. Patient is 28 weeks . Patientwas referred for a consultation by Nora Mohamud MD at [facility] Antepartum. Patient is currentlyunemployed. 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 Patient was alone during this consult. Reason for Consult: The reason for this consultation is: History of depression and anxiety as well as past chemical use. Patient's Report of Presenting Concern: Patient reports that she has been diagnosed with depression and anxiety. She has a past history of BPD, but reports that this was 'a long time ago' and she denies current symptoms. She reports she has a history of panic attacks, last episode was 6 months ago. She reports she is currently prescribed Effexor and Wellbutrin by her PCP and she feels her symptoms of depression and anxiety are being well managed. She denies any current or past suicidal ideation, homicidal ideation, plan or indent to harm self or others. Patient has lost three children in the past; one to SIDS at 3 1/2 months, one to a heart defect at 51/2 months and another to miscarriage at 19 weeks. She has three children at home ages 10, 7, and 4.Her and patient's parents are providing care while she is in the hospital. She has been seeing a therapist for EMDR therapy to help her with this, but has not been to a session in [facility]. She is open to returning after this hospitalization. She also reports that her current would like to adopt her three children from a former marriage as well as get a restraining order against her former due to concerns about his behaviors. Patient has full legal and physical custody. She reports a history of skin picking and some prior OCD and paranoid traits, but states they have resolved for the most part, since she has been sober the past eight years, though Soboxone maintenancemay contribute to these symptoms. Review of Symptoms: Patient was assessed for the following symptoms and reports the following: Depression: Sleep, reports stable mood currently Cady: No symptoms Psychosis: No symptoms history of mild paranoia secondary to opoid dependency Anxiety: Worries specific to and not being there to take care of her kids Panic: No symptoms last attack 6 months ago Post Traumatic Stress Disorder: Avoid Traumatic Stimuli Trauma specific to loss of children in the past Obsessive Compulsive Disorder: some continued skin picking and past need to symmetry and order Eating Disorder: No symptoms ADD / ADHD: No symptoms Mental Health History: Patient previously received the following mental health diagnosis: Anxiety, Depression and a Personality Disorder . Patient has received the following mental health services in the past: counseling andmedication(s) from physician / PCP. Psychiatric Hospitalizations: None. Patient is currently receiving the following mental health services: medication(s) from physician / PCP. Patient reported the following biological family members or relatives with mental health issues: Mother experienced Depression and Brother experienced Anxiety. Chemical Use Review: Patient denies using alcohol. Patient reports using tobacco 4 times per day. Client started using tobacco at age unknown.. Patient denies using marijuana. Patient denies using street drugs. Patient denies the non-medical use of prescription or over the counter drugs. CAGE: None of the patient's responses to the CAGE screening were positive / Negative CAGE score Based on the negative Cage-Aid score and clinical interview there are not indications of drug or alcohol abuse. Patient reports a history of substance use problems. She reports she used to have a sponsor, but hasbeen able to maintain her sobriety over the past 8 years through lifestyle changes. She and her attend taoist-based meetings twice a week and no longer associate with drug-related individuals. Patient reported the following biological family members or relatives with chemical health issues: Brother, Father, and Sister. Medical Issues: Patient reports the following current medical concerns: Chronic hepatitis and hypothyroid Patient reports current meds as: Current Facility-Administered Medications Medication ??? carbamide peroxide (DEBROX) 6.5 % otic solution 3 drop ??? senna-docusate (SENOKOT-S;PERICOLACE) 8.6-50 MG per tablet 1 tablet ??? buPROPion (WELLBUTRIN SR) 12 hr tablet 150 mg ??? emollient (VANICREAM) cream ??? multivitamin plus iron per tablet 1 tablet ??? acetaminophen (TYLENOL) tablet 975 mg ??? levothyroxine (SYNTHROID/LEVOTHROID) tablet 150 mcg ??? cyclobenzaprine (FLEXERIL) tablet 10 mg ??? acetaminophen (TYLENOL) tablet 650 mg ??? venlafaxine (EFFEXOR-ER) 24 hr tablet 150 mg ??? sodium chloride (OCEAN) 0.65 % nasal spray 1 spray ??? nicotine polacrilex (NICORETTE) gum 2 mg ??? ondansetron (ZOFRAN) injection 4 mg ??? lidocaine 1 % 1 mL ??? lidocaine (LMX4) kit ??? sodium chloride (PF) 0.9% PF flush 3 mL ??? sodium chloride (PF) 0.9% PF flush 3 mL ??? calcium gluconate 10 % injection 1 g ??? buprenorphine (SUBUTEX) sublingual tablet 2 mg ??? calcium carbonate (TUMS) chewable tablet 500 mg ??? ranitidine (ZANTAC) injection 50 mg Patient reports they were taking psychiatric medications prior to no known allergies to medications Medication Adherence: Patient reports taking prescribed medications as prescribed Follow-up: Patient was encouraged to follow-up with their prescribing provider Safety Issues and Plan for Safety and Risk Management: Patient has had a history of self-injurious behavior: no current issues or concerns reported Patient denies current fears or concerns for personal safety. Patient denies current or recent suicidal ideation or behaviors. Patient denies current or recent homicidal ideation or behaviors. Patient denies any current or recent ideation and/or behaviors to harm her baby Patient denies current or recent self injurious behavior or ideation. Patient denies other safety concerns. Patient reports there are no firearms in the house Report to child / adult protection services was NA. Mental Status Assessment: Appearance: Appropriate Eye Contact: Good Psychomotor Behavior: Normal Attitude: Cooperative Orientation: All Speech Rate / Production: Normal Volume: Normal Mood: Normal Affect: Appropriate Thought Content: Clear Thought Form: Coherent Logical Insight: Fair Diagnostic Criteria: The client does not report enough symptoms for the full criteria of any specific Anxiety Disorder tohave been met Anxiety disorder is present, but at this time therapist is unable to determine whether it is primary. Further assessment needed. - The person finds it difficult to control the worry. - Restlessness or feeling keyed up or on edge. - Sleep disturbance (difficulty falling or staying asleep, or restless unsatisfying sleep). - Depressed mood. Note: In children and adolescents, can be irritable mood. - Decreased sleep. Functional Status: Patient's symptoms have caused and are causing reduced functional status in the following areas: Activities of Daily Living, Social / Relational DSM5 Diagnoses: (Sustained by DSM5 Criteria Listed Above) Behavioral and Medical Diagnosis: 311 (F32.9) Unspecified Depressive Disorder 300.00 (F41.9) Unspecified Anxiety Disorder Adjustment Disorders 309.9 (F43.9) Unspecified Trauman and Stressor Related Disorder; Psychosocial & Contextual Factors: Issues associated with grief and loss, occupation/finances, maintaining mental and chemical health SUMMARY: Patient reports that she has been diagnosed with depression and anxiety. She has a past history of BPD, but reports that this was 'a long time ago' and she denies current symptoms. She reports she has a history of panic attacks, last episode was 6 months ago. She reports she is currently prescribed Effexor and Wellbutrin by her PCP and she feels her symptoms of depression and anxiety are being well managed. She denies any current or past suicidal ideation, homicidal ideation, plan or indent to harm self or others. Patient has lost three children in the past; one to SIDS at 3 1/2 months, one to a heart defect at 51/2 months and another to miscarriage at 19 weeks. She has three children at home ages 10, 7, and 4.Her and patient's parents are providing care while she is in the hospital. She has been seeing a therapist for EMDR therapy to help her with this, but has not been to a session [facility]. She is open to returning after this hospitalization. She also reports that her current would like to adopt her three children from a former marriage as well as get a restraining order against her former due to concerns about his behaviors. Patient has full legal and physical custody. She reports a history of skin picking and some prior OCD and paranoid traits, but states they have resolved for the most part, since she has been sober the past eight years, though Soboxone maintenancemay contribute to these symptoms. screened for depression risk factors, conducted diagnostic interview, assessed for safety risk issues, explored current stressors and concerns and assisted client with problem-solving ways tomanage current stressors, provided support and vallidation, provided psychoeducation and educationalhand-outs on mood and anxiety disorders, provided brief cognitive-behavioral therapy interventions, review of client's medical record RECOMMENDATIONS 1) [facility] assistance with activities while inpatientsuch as knitting, reading, and other hobbies. Patient was given some modeling jose alejandro to help her with reduction of skin-picking 2) Continued monitoring of patient's mood and symptoms. Encourage practice of self-care strategies. 3) Recommend and encourage patient continue to participate in individual therapy post discharge fromthe hospital, given the current symptoms she is reporting, in addition to her history of having experienced previous episodes of depression and anxiety.?? She has an outpatient individual therapist shewas seeing prior to being admitted to the hospital, and it is encouraged she continue to see her, or if she would like to see a different provider, she may schedule outpatient follow-up with [facility] (call [phone] and inform oracle technical architect that you are or have recently had a baby) or contact insurance company for additional referrals.? Please contact [facility] if patient is in need of supports while on antepartum.?? She currently denies need for ongoing mental health support services. Provider routed the results of this consultation and treatment recommendations to referring provider. Provider reviewed the results of this consultation and treatment recommendations with referring provider via EPIC Referral to another professional/service is not indicated at this time.. So Sohail Kingston ROWLAND PsyD, LP December 17, 2016 Gabby Samaniego LP - 12/11/2016 8:18 PM CDTAssociated Order(s): MENTAL HEALTH IP CONSULT Patient was on the phone and declined doing the consult now, because she just came back from an hour long ultra sound and stated needing a break. I informed pt. that her OB placed this consult and wants her to be seen by MH, but she indicated really needing a break and time to herself. She asked if this senior writer could return tomorrow or later this afternoon, but this senior writer told her that she is booked and won't be able to accommodate except for this morning. Spa Host mentioned at the end that if she is open to doing the consult later, will check and see if one of my colleagues would be available. Pt. was agreeable to seeing someone tomorrow preferably or later this afternoon. ?? Upon checking with team since no one else was available to go over again today, and pt. declined when consult was offered, will close this order and OB is welcome to re-place the order if they want it and/or the patient expresses their willingness and readiness to participate (at this service's next availability). Gabby Samaniego LP - 12/10/2016 9:48 AM CDT Patient was on the phone and declined doing the consult now, because she just came back from an hour long ultra sound and stated needing a break. I informed pt. that her OB placed this consult and wants her to be seen by MH, but she indicated really needing a break and time to herself. She asked if this senior writer could return tomorrow or later this afternoon, but this senior writer told her that she is booked and won't be able to accommodate except for this morning. Spa Host mentioned at the end that if she is open to doing the consult later, will check and see if one of my colleagues would be available. Pt. was agreeable to seeing someone tomorrow preferably or later this afternoon. Upon checking with team since no one else was available to go over again today, and pt. declined when consult was offered, will close this order and OB is welcome to re-place the order if they want it and/or the patient expresses their willingness and readiness to participate (at this service's next availability). Madonna Hazel APRN NUCLEAR MEDICINE TECHNICIAN - 12/07/2016 5:00 PM CDTAssociated Order(s): NURSE PRACT IP CONSULT Neonatology Antepartum Counseling Consult I was asked to provide antepartum counseling for Deann King at the request of Nora Leyva MD secondary to premature rupture of membranes. Ms. King is currently 27 weeks and has a hx significant for demise at 19 weeks and two term deaths, one from sids and one from cardiac defect. Betamethasone was administered on 12/07/16. Ms. King, accompanied by her mother, was counseled on the expected hospital course, potential risks, and outcomes associated with an born at approximately 27 weeks gestation. The counseling included: morbidity, mortality, initial delivery room stabilization, respiratory course, lung development, patent ductus arteriosus, retinopathy of prematurity, hyperbilirubinemia, hemodynamic support, infection (including NEC), intraventricular hemorrhage, nutrition, growth and development, and tank terminal gauger outcomes. Please feel free to call with any additional questions or concerns. Madonna Carrasquillo APRN, [facility] 12/07/2016 6:51 PM Nurse Practitioner Service Intensive Care Unit [facility] Floor Time (min): 5 Face to Face Time (min): 25 Total Time (minutes): 30 More than 50% of my time was spent in direct, face to face, antepartum counseling with the above patient. documented in this encounter Nursing Notes Lisa Rubio RN - 12/25/2016 1:57 AM CST Pt had an A-line on arrival to PACU in left radial, line was leveled and Zeroed, after labs were drawn, [place] was removed with approval of Dr Torres. Site held for 5 minutes and dressing placed to Left wrist, no bleeding or oozing noted at that time. Pt VSS, capnography started, pt's family updated via phone, will report to floor RN. ESTIMATOR Lisa Rubio RN - 12/25/2016 1:42 AM CST PACU to Inpatient Nursing Handoff Patient Deann King is a 36 year old female who speaks Pashto. Procedure Procedure(s): Section Immediate Hysterectomy, Bilateral Salpingectomy and Cystoscopy. Baby Boy born at 20:05 - Wound Class: II-Clean Contaminated Surgeon(s) Primary: So Nunez MD Assisting: Marilu Lam MD; Petrona Barone DO; Margarita Talbert MD Resident - Assisting: Kayla Davidson MD; Tatyana Walsh MD No Known Allergies Isolation @ISOLATION@ Past Medical History has a past medical history of Anxiety; Chronic hepatitis C (H); Depressive disorder; Hypothyroid; and Suboxone maintenance treatment complicating , antepartum (H). Anesthesia * No anesthesia type entered * Dermatome Level Preop Meds Not applicable Nerve block Transversus abdominus plane (TAP). Location:bilateral. Med:Exparel (liposomal bupivacaine). Time given: done in OR Intraop Meds fentanyl (Sublimaze): 200 mcg total hydromorphone (Dilaudid): 2 mg total ondansetron (Zofran): last given at 2329 Local Meds No Antibiotics cefazolin (Ancef) - last given at 2321 Pain Patient Currently in Pain: yes Comfort: tolerable with discomfort Pain Control: partially effective PACU meds fentanyl (Sublimaze): 200 mcg (total dose) last given at 0103 hydromorphone (Dilaudid): 1 mg (total dose) last given at 0131 FOOTWEAR SALES LEADER / epidural Yes. FOOTWEAR SALES LEADER - hydromorphone (Dilaudid) Capnography Telemetry ECG Rhythm: Sinus rhythm Labs Glucose Lab Results Component Value Date GLC 161 12/24/2016 Hgb Lab Results Component Value Date HGB 10.1 12/24/2016 INR Lab Results Component Value Date INR 1.50 12/24/2016 PACU Imaging Not applicable Wound/Incision Incision/Surgical Site 12/24/16 Midline Abdomen (Active) Incision Assessment UTV 12/25/2016 12:42 AM Dressing Intervention Clean, dry, intact 12/25/2016 12:42 AM Number of days:1 Incision/Surgical Site 12/24/16 Bilateral Abdomen (Active) Number of days:1 CMS Peripheral Neurovascular WDL: WDL (12/25/16 0005) All Extremities Temperature: warm (12/24/16 1600) All Extremities Color: no discoloration (12/24/16 0922) All Extremities Sensation: no numbness;no tingling (12/24/16 0922) Equipment capnography and FOOTWEAR SALES LEADER Other LDA IV Access Peripheral IV 12/22/16 Left Upper forearm (Active) Site Assessment WD except;Leaking 12/25/2016 12:38 AM Line Status Saline locked 12/25/2016 12:38 AM Phlebitis Scale 0-->no symptoms 12/23/2016 8:45 AM Infiltration Scale 0 12/23/2016 8:45 AM Dressing Intervention Other (Comment) 12/23/2016 8:45 AM Number of days:3 Peripheral IV 12/24/16 Right Upper forearm (Active) Site Assessment WD 12/25/2016 12:38 AM Line Status Saline locked 12/25/2016 12:38 AM Number of days:1 Peripheral IV 12/24/16 Left Lower forearm (Active) Site Assessment [facility] 12/25/2016 12:38 AM Line Status Infusing 12/25/2016 12:38 AM Number of days:1 Arterial Line 12/24/16 (Active) Number of days:1 Blood Products Red Blood Cells: 10 unit(s) ordered, 10 unit(s) given Platelets: 2 unit(s) ordered, 2 unit(s) given Plasma: 5 unit(s) ordered, 5 unit(s) given Cryoprecipitate: 1 unit ordered, 1 unit given EBL surg log * No blood loss amount entered * Intake/Output Drains / Duarte Urethral Catheter Double-lumen 16 fr (Active) Collection Container Standard 12/25/2016 12:05 AM Securement Method Securing device (Describe) 12/25/2016 12:05 AM Rationale for Continued Use Anesthesia;/GI/GRILL ASSOCIATE Pelvic Procedure 12/25/2016 12:05 AM Urine Output 235 mL 12/25/2016 1:12 AM Number of days:1 Time of void PreOp Void Prior to Procedure: 1835 (12/24/162005) PostOp Voided (mL): 150 mL (12/08/16447) Urine Occurrence: 0 (12/20/16399) Bladder Scan PO 118 mL (12/08/16 0115) tolerating sips Vitals B/P: 105/59 T: 97.9 ??F (36.6 ??C) Temp src: Oral P: Pulse: 101 (12/19/16 1239) Heart Rate: 91 (12/25/16 0130) R: 23 O2: SpO2: 97 % O2 Device: None (Room air) (12/25/16 0100) Oxygen Delivery: 8 LPM (12/25/16 0005) Family/support present family in unge Patient belongings Patient Belongings: cell phone/electronics;dental appliance/dentures;earings;glasses Disposition of Belongings: Kept with patient Patient transported on cart and air mat DC meds/scripts (obs/outpt) Not applicable Special needs/considerations None Tasks needing completion None, pt EBL was 5L in OR, all blood products were given in OR. Pt's familywas by the antepartum lounge per the antepartum RN. Lisa Rubio, RN ASCOM [id number] ESTIMATOR documented in this encounter Miscellaneous Notes Plan of Care - Nakia Figueroa PTA - 12/27/2016 3:26 PM CST Problem: PT General Care Plan Goal: PT target date for goal attainment PT: patient met 1 out of 2 goals with 1 out of 2 goals partially met with pain rating from 8/10 to 5/10. Patient performed independence with HEP and plans to follow up with outpatient therapy followingd/c today. Issued phone numbers and nursing assisted with paging doctor for referral. Patient had nofurther questions and will d/c from inpatient PT. ESTIMATOR Associated attestation - Roxy Sr PT - 12/27/2016 6:21 PM COST ESTIMATOR Physical Therapy Discharge Summary Reason for therapy discharge: Discharged to home with outpatient therapy. Progress towards therapy goal(s). See goals on Care Plan in Epic electronic health record for goal details. Goals partially met. Barriers to achieving goals: limited tolerance for therapy and discharge from facility. Therapy recommendation(s): Continued therapy is recommended. Rationale/Recommendations: Per recommendations, pt to continue with out-pt PT to address strengthening and pain issues. . Continue home exercise program. Plan of Care - Brenna Verduzco RN - 12/27/2016 3:12 PM CST Problem: Patient Care Overview Goal: Plan of Care/Patient Progress Review Outcome: Adequate for Discharge Date Met: 12/27/16 Patient discharged to home. Waited for d/c meds of oxycodone for a few hours due to higher dose and insurance approval. Full assessment and VS WDL. Encouraged patient to not pick at abdominal incision.All d/c instructions reviewed and copy given to patient. All d/c meds reviewed and given to patient prior to leaving. F/U in clinic understood by patient. ESTIMATOR Plan of Care - Erika Villalpando RN - 12/27/2016 7:50 AM CST [facility]erral [facility] to [facility] for early dc. ESTIMATOR Plan of Care - Lucia Cotton RN - 12/27/2016 4:06 AM CST Problem: Patient Care Overview Goal: Plan of Care/Patient Progress Review Outcome: No Change Pt stable this shift. Pt appears more comfortable between meds. Pt has been sleeping soundly but wants to be woke up for pain meds when they are due. Pt pumped her breasts and got a good amount of colostrum out which was taken to the nicu. ESTIMATOR Plan of Care - Hyacinth Wolf RN - 12/26/2016 2:47 PM CST Problem: Patient Care Overview Goal: Plan of Care/Patient Progress Review Outcome: Improving Patient has been getting pain control when she can have it. Claimed pain control is not that great but it helps. Pumped x 1 today. She was able to visit baby in NICU by wheelchair and seen ambulating from coffee room to her room. Voiding freely but not passing gas. Simethicone given and encouraged to ambulate more. Will continue with plan of Care. ESTIMATOR Note - Nikky Smith RNC - 12/26/2016 2:32 PM CST This note was copied from a baby's chart. D: I met with Deann in her room. I: I introduced myself and asked if this was a good time to do her admission. She stated no, she was in a lot of pain and asked to defer until tomorrow. I quickly reviewed using Initiate setting on the pump, recommended pumping regime and verified she was pumping comfortably. She stated she had experience with pumping and had no questions or concerns. A: Admission delayed until tomorrow. P: Will continue to provide support. Nikky Smith, GENAROC, IBCLC ESTIMATOR Plan of Care - Lucia Cotton, RN - 12/26/2016 5:46 AM CST Problem: Patient Care Overview Goal: Plan of Care/Patient Progress Review Outcome: Improving Pt's vital signs stable this shift. Pt will get a cbc with platelets checked this am. Pt 's baby is in the nicu and she does not want to pump her breasts. Pt has many complaints of pain but appears to be sleeping well between pain med doses. Pt appears very tired but wants as much pain medication as she can have. Talked with care team and they decreased dilaudid dosage. Pt has pain consult today. Pt has been monitored on continuous pulse oximeter. Warned pt to not get out of without calling us to stand by. ESTIMATOR Plan of Care - Yessenia Julian RN - 12/25/2016 10:29 PM CST Problem: Patient Care Overview Goal: Plan of Care/Patient Progress Review Outcome: No Change VSS aside from slightly elevated HR. Cont pulse ox in place. Abdominal drsg CDI. C/o severe pain andabdominal discomfort/bloating. Given PRN simethicone, IV dilaudid, oxycodone, and toradol. Requests pain meds be given whenever available and she is woken up when due overnight. BS present and audible x 4. No n/v. Given PRN suppository and encouraged ambulation. Encouraged to pump throughout shift buthas been delaying doing so. Voiding without issues. Up with SBA. Took shower this evening. PIV patent and saline locked. Received last dose IV abx. Has call light in reach and is able to make needs known. Partner present at bedside. Continue with plan of care. ESTIMATOR Provider Notification - Kristie Merida RN - 12/25/2016 9:01 PM CST Sepsis alert came up for pt. BP 91/63. HR of 115. SpO2 of 98. ESTIMATOR Plan of Care - Maria Antonia Hidalgo RN - 12/25/2016 8:19 PM CST Problem: Patient Care Overview Goal: Plan of Care/Patient Progress Review Outcome: No Change Pt moved to room 7136 @ 1900. Report given to Kristie LAM. Pt up in wheelchair for several hours through out the day. Also visited twice and out to smoke times one. Pain increased after these activities. Pt has minimal bowel sounds with distended abdomen. Has not passed flatus. Encouraged patient to consume less solid food and increase fluid intake. Simethicone given for bloating. IV dilaudid, IV toradol and oral oxycodone given with initial relief. ESTIMATOR Provider Notification - Kristie Merida RN - 12/25/2016 7:48 PM CST Do you want pt to continue with IV Toradol and Dilaudid? FYI-pt is going outside to smoke. ESTIMATOR Plan of Care - Maria Antonia Hidalgo RN - 12/25/2016 4:36 PM CST Problem: Patient Care Overview Goal: Plan of Care/Patient Progress Review Data: Vital signs within normal limits. checks within normal limits - Patient eating and drinking normally. Duarte discontinued @1545. Pt ambulating in room and able to sit up in wheel chair for 3 hours. Incision covered, clean, dry and intact. No apparent signs of infection. Action: Patient medicated during the shift with dilaudid FOOTWEAR SALES LEADER for pain, which was discontinued at 13:50. And IV Toradol. Oral oxycodone started @ 13:20. Patient reassessed, and is highly anxious about not getting enough pain control, however, she is falling asleep while performing tasks. When she is awake she states she needs more pain medication and is afraid that she is not getting enough. Patient education done regarding plan of care, pumping and room change later this evening. Response: Positive attachment behaviors observed with . Support person Rafal presentfor a majority of the day.. Plan: Continue to monitor and treat. Assess for adequate pain relief, and any other needs. Anticipate discharge on Friday. ESTIMATOR Plan of Care - Maria Antonia Hidalgo RN - 12/25/2016 9:30 AM CST Problem: Patient Care Overview Goal: Plan of Care/Patient Progress Review CAPNO machine was working well until about 08:30. The side plug came loose and now it is not workingproperly. RN flyer called to get a replacement part. Oxygen saturation machine in room is reading 97% - 99% with a heart rate of 90. Addendum. Machine not working properly for about one hour. Fixed and working well now ESTIMATOR Plan of Care - Khloe Elmore RN - 12/25/2016 5:50 AM CST Problem: ( Delivery) (Adult,Obstetrics,Pediatric) Goal: Signs and Symptoms of Listed Potential Problems Will be Absent, Minimized or Managed () Signs and symptoms of listed potential problems will be absent, minimized or managed by discharge/transition of care (reference ( Delivery) (Adult,Obstetrics,Pediatric) CPG). Outcome: No Change Pt's pain intolerable with FOOTWEAR SALES LEADER @ 0.2mg dilaudid every 10 minutes, dose increased to 0.3mg every 10 minutes with max dose delivery 1.2mg/hr. Pt's pain remains intolerable, but getting better, she falls asleep between FOOTWEAR SALES LEADER doses. ESTIMATOR Op Note - So Nunez MD - 12/24/2016 11:53 PM CST [facility] Full Operative Progress Note Surgery Date: 12/24/2016 Surgeon: So Nunez MD Assistants: Marilu Lam MD Crop Pest Control Specialist/Onc staff Petrona Barone MD MFM staff Donita Barrow MD MFM fellow Margarita Talbert MD Crop Pest Control Specialist/Onc fellow Marleny Kang MD PGY-3 Tatyana Govea MD PGY-3 Kayla Davidson MD PGY-2 Exceptional Circumstances Require an Boiler Inspector Surgeon -Exceptional medical circumstances in this case required the participation of educational assistant surgeons Drs. Barone and Idania in addition to a trained resident and fellow. The exceptional circumstances wereconcern for abnormal placentation and significant blood loss during surgery. Pre-op Diagnosis: - Intrauterine at 29w4d - PPROM at 27w1d - Vaginal bleeding, labor - Complete placenta previa, possible placenta accreta - History??of C/S x 2 - Previous??uterine rupture - History of substance abuse, on subutex Post-op Diagnosis: - Same - Likely placenta accreta - hemorrhage requiring massive transfusion due to placenta accreta - Liveborn male infant Procedure: hysterectomy and bilateral salpingectomy via vertical skin incision, cystoscopy Anesthesia: GETA EBL: 5000 mL ?? IVF: 4800 mL crystalloid ?? Blood products: 10 U pRBCs, 6 U FFP, 2 pack platelets, 1 U cryo UOP: 900 mL clear yellow urine at the end of the case Drains: Duarte Catheter Specimens: Placenta, cord blood, cord segment, uterus and cervix, right and left fallopian tubes Complications: None apparent Indications: Deann King is a 36 year old at 29w4d admitted at 27w1d with PPROM in the setting of placenta previa and possible accreta. She received latency antibiotics as well as a course of betamethasone for lung maturity. She was serially monitored with twice weekly BPPs. MRI was concerning for posterior placenta previa with possible accreta and no evidence of percreta. She signed a consent on admission and ultimately, desired hysterectomy if needed for safe delivery. She was expectantly managed until HD#18 when she developed bright red vaginal bleeding and was noted to be dilated to approximately 2 cm on sterile speculum exam. Delivery was recommended. The risks, benefits, and alternatives of section were discussed with the patient, and she agreed to proceed. Informed consent had previously been signed including consent for blood products. She received a 6 gram load of IV magnesium prior to delivery and was type and crossed for 2U pRBCs. Findings: 1. Moderate rectofascial adhesions and no significant intraabdominal adhesions except for bladder densely adherent to the lower uterine especially on the right aspect of the uterus. 2. Scant clear amniotic fluid. 3. Liveborn male infant in OA presentation delivered through classical uterine incision. Apgars 8 at1 minute & 9 at 5 minutes. Weight 1180 grams. 4. Insufficient sample for arterial cord gases. Venous cord blood pH 7.28, base deficit 5.9. 5. Placenta was easily removed with manual extraction, but due to bleeding from the placental bed and cervix, the decision was made to proceed with hysterectomy. 6. Normal uterus, fallopian tubes, and ovaries. 7. Bilateral ureteral efflux and no bladder injury noted on cystoscopy at the end of the case. Procedure Details: The patient was brought to the main OR. She was placed in the lithotomy position with a slight leftward tilt. She was prepped and draped in the usual sterile fashion. She had SCDs in place for DVT prophylaxis and received 2 grams of Ancef. A surgical time out was performed. General anesthesia was then administered without complication. An infraumbilical vertical skin incision was made with the scalpel, and carried down to the underlying fascia sharply. The fascia was incised in the midline and extended superiorly and inferiorly using electrocautery. The peritoneum was elevated with a zarina clamp and incised with Metzenbaum scissors. The opening was extended with digital pressure and sharp dissection. The bladder blade was placed. The skin and fascial incision was extended superior to the level ofthe umbilicus and inferiorly to create enough space for delivery to approximately 1 cm above the pubic symphysis. A vertical hysterotomy was made with the scalpel to the right of midline to avoid the pl acenta. After blunt entry into the uterine cavity, the incision was extended with bandage scissors inferiorly and superiorly. The was noted to be in the OA position, and was delivered atraumatically. The shoulders delivered easily. No nuchal cord was noted. The cord was doubly clamped and cut im mediately, and the infant was handed off to the awaiting NICU staff. A segment of cord was cut and handed off. The uterus was exteriorized. A plane was easily identified between the placenta and uterusand the placenta was easily removed with manual extraction. The uterus was then cleared of all clotsand debris. Brisk bleeding was noted from the lower uterine segment and cervix, consistent with abnormal placentation. Due to this finding, the decision was immediately made to proceed with hysterectomy. The hysterotomy was closed in a running fashion with 0 Vicryl suture to assist with bleeding. A large Octavio O retractor was placed for visualization. The right round ligament was grasped with a Perla clamp and divided with cautery. The broad ligament was dissected. A window was made in the broad ligament below the right uteroovarian ligament. The right UO ligament was doubly clamped with curved Kimber clamps, cut, and suture ligated with 0 Vicryl x2. The bladder was densely adherent to the lower uterine segment and given difficulty starting a bladder flap on the right side, attention was turned to the left. The left round ligament was grasped with a Perla clamp and transected with cautery. The broad ligament was then dissected. A window was then created in the peritoneum below the left UO ligament, which was doubly clamped, cut, and suture ligated x2. A bladder flap was started using electrocautery and sharp dissection with Metzenbaum scissors, but it was difficult to identify the correct plane to avoid bladder injury and visualization was poor. Due to concern for dense bladder adhesions and bleeding, Dr. Lam of Gynecology Oncology wascontacted for assistance. While waiting for Dr. Lam, the large Octavio O retractor was removed and the Bookwalter was placed after the bowel was packed away with moist laparotomy sponges, which improved visualization. The uterine vessels were further skeletonized. The bladder flap was further developed using sharp dissection. After the bladder was noted to be down, the uterine arteries were clamped bilaterally, cut, and suture ligated with 0 Vicryl. Bleeding improved significantly at that point. The bladder was further taken down on the right side. After Dr. Lam arrived, the bilateral ureters were identified by palpation. The cardinal ligaments were clamped, cut and suture ligated using 0 Vicryl. Clamps were placed bilaterally under the levelof the cervix. The cervix and uterus was amputated using Hardy scissors and passed off the field. The vaginal cuff was closed with Kimber stitches of 2-0 Vicryl on each apex and figure of X suturesacross the middle. The pelvis was copiously irrigated with warm saline. Bleeding was noted from the left ovarian pedicle and a surgical clip was placed to achieve hemostasis. The bilateral fallopian tubes were removed using electrocautery. Cystoscopy was then performed in standard fashion with the findings listed above. A new duarte catheter was replaced. The vaginal cuff was again inspected and oozing was noted from the right aspect of the cuff apex. Bleeding was controlled with a running suture of 3-0 Vicryl. Hemostasis was achieved. Surgicel was placed over the cuff. The bookwalter retractors and moist lap sponges were removed from the abdomen. The fascia was closed with a running 0 PDS suture starting from each end of the incision and meeting in the middle. The subcutaneous tissue was irrigated and areas of oozing were controlled with electrocautery. The subcutaneous tissue was greater than 2 cm in thickness, and was therefore closed with two running layers of 3-0 Vicryl suture. The skin was closed with 4-0 Monocryl and covered with a sterile dr essing. All sponge, needle, and instrument counts were correct. Intraabdominal XR was negative for any retained instruments or laparotomy sponges at the end of the case. The patient tolerated the procedure well, and was transferred to recovery in stable condition after extubation in the room. Dr. Nunez was present and scrubbed for the entirety of the procedure. Marleny Kang MD Base Draw Operator, PGY-3 12/24/2016, 11:54 PM I was present and scrubbed throughout the procedure, I agree with the note above oS Nunez MD ESTIMATOR Brief Op Note - Marleny Kang MD - 12/24/2016 11:23 PM CST [facility] Hysterectomy Brief Operative Note Surgery Date: 12/24/2016 Surgeon: So Nunez MD; Marilu Lam MD (intraoperative consult) Assistants: Petrona Barone MD M staff Donita Barrow MD M fellow Margarita Talbert MD Crop Pest Control Specialist/Onc fellow Marleny Kang MD PGY-3 Tatyana Govea MD PGY-3 Kayla Davidson MD PGY-2 Pre-op Diagnosis: - Intrauterine at 29w4d - PPROM - Vaginal bleeding, labor - Complete placenta previa, possible placenta accreta - labor - History of C/S x 2 - Previous uterine rupture Post-op Diagnosis: - Same - Likely placenta previa - hemorrhage requiring massive transfusion due to placenta accreta - Liveborn male infant Procedure: hysterectomy, bilateral salpingectomy via vertical skin incision, cystoscopy Anesthesia: General EBL: 5000 mL IVF: 4800 mL crystalloid Blood products: 10 U pRBCs, 6 U FFP, 2 pack platelets, 1 U cryo UOP: 900 mL clear yellow urine at the end of the case Drains: Duarte Catheter Specimens: Placenta, cord blood, cord segment, uterus and cervix, right and left fallopian tubes Complications: None apparent Findings: 1. Moderate rectofascial adhesions, no significant intraabdominal adhesions except for bladder densely adherent to lower uterine especially on the right aspect of the uterus. 2. Scant clear amniotic fluid. 3. Liveborn male infant in OA presentation delivered through classical uterine incision. Apgars 8 at1 minute & 9 at 5 minutes. Weight 1180 grams. 4. Cord gases pending. 5. Placenta was easily removed with manual extraction, but immediately was clear that placental bed and cervix were bleeding and the decision was made to proceed with hysterectomy. 6. Normal uterus, fallopian tubes, and ovaries. Disposition: Stable to PACU Marleny Kang MD CHUCKING AND BORING 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 PGY-3 ESTIMATOR Op Note - Marilu Lam MD - 12/24/2016 10:18 PM CST DATE OF SERVICE: 12/07/2016 Remainder of this note will be dictated by Dr. Nunez's service and for my portion is as follows: ATTENDING: Marilu Lam MD MAINTENANCE CARPENTER: Dr. Talbert, PGY 7 ANESTHESIA: GET COMPLICATIONS: None. PROCEDURE: Hysterectomy, bilateral salpingectomy. This was an intraoperative consultation on a patient of Dr. Nunez'kevin who had undergone a section at 29 weeks complicated by a placenta previa involving the left lateral aspect of the cervix and lower uterine segment. At the time of consultation, the patient had had a hemorrhage for which we were consulted. Fortunately, however, on my arrival, the bleeding was no longer catastrophic and the superior portion of the procedure had already been completed. The ovaries and tubes had been separatedfrom the uterus and the uterine arteries had been initially skeletonized. The baby had been delivered. The hysterotomy was closed and there was defect in the left anterior low uterine segment where theprevious placenta had come through and through. The bladder was identified and the ureters were identified bilaterally. The IP ligaments had been left intact with the ovaries displaced superiorly. There was small amount of bleeding from the uterus at the inferior most aspect of the bladder. The decision was made to first displace the bladder inferiorly, at which point the cervix could be identified. The uterine artery was then transected in the usual fashion and skeletonized sequentially using peon clamps. The cervix could be identified and at this point, the specimen was amputated. There was some b leeding from the posterior aspect of the bladder, but no clear defect. These areas were oversewn andcauterized as appropriate. The ureters were noted to be intact and nondilated. Cystoscopy was nevertheless performed as the surgery was somewhat complicated. This showed good egress of urine from both ureters and no evidence of defect within the bladder. The dome of the bladder was examined and appeared normal as well. At this point, there was copious irrigation, good hemostasis was assured and salpingectomies were performed in an opportunistic fashion using cautery. On the right side this required a clip which will be visible on x-ray in the future. At this point, we again irrigated. There was good hemostasis and we turned the procedure back to . MARILU LAM MD MT: Name: DEANN KING MRN: [id number] Account: [id number] : 1980 Procedure Date: 12/07/2016 Document: [id number] ESTIMATOR Plan of Care - Juanis Henson, RN - 12/24/2016 8:28 PM CST Problem: PROM, PPROM, Prolonged Rupture of Membranes (Adult,Obstetrics,Pediatric) Goal: Signs and Symptoms of Listed Potential Problems Will be Absent, Minimized or Managed (PROM, PPROM, Prolonged Rupture of Membranes) Signs and symptoms of listed potential problems will be absent, minimized or managed by discharge/transition of care (reference PROM, PPROM, Prolonged Rupture of Membranes (Adult,Obstetrics,Pediatric) CPG). Outcome: Declining RN was called into patient's bathroom. Patient was sitting on toilet and stated she was bleeding. There was bright red bleeding on her pad and a clot in the toilet. Dr. Kang was notified to come and evaluate. Sterile spec exam was done and noted to be 2 cm. There was a small amount of active bleeding. Second IV was placed. Abdominal prep was done by clipping hair, and lakeisha wipe. Bicitra was given. Patient was given 6 gm load of Magnesium Sulfate and IV bolus started. Dr. Nunez was in to see patient along with Dr. Kang and questions answered. SCD's were placed. [facility] saw patient prior to transfer to the OR. There was no new bleeding after the spec exam and prior to transfer to cart. While transferto OR patient felt blood coming out and only a small amount was seen on perineum. Dr. Barone was updated on patient status while transfer to OR. ESTIMATOR Plan of Care - Juanis Henson RN - 12/24/2016 6:04 PM CST Problem: Patient Care Overview Goal: Plan of Care/Patient Progress Review Outcome: No Change Continues to have cramping. Intensity remains the same. Continue to monitor. ESTIMATOR Plan of Care - Nakia Figueroa PTA - 12/24/2016 4:18 PM CST Problem: PT General Care Plan Goal: PT target date for goal attainment PT: patient displayed improvement with pain and prior to treatment rated neck pain 4/10 and after manual therapy decreased to 0/10. Melter Helper PT Patient plan for discharge: home Current status: patient independent with all mobilities and HEP Barriers to return to prior living situation: none Recommendations for discharge: home would benefit from OP PT for management of neck and back Rationale for recommendations: decrease back and neck pain and improve posture. Entered by: Naika Figueroa 12/24/2016 4:17 PM ESTIMATOR Plan of Care - Petrona Sharif RN - 12/24/2016 3:35 PM CST Problem: Patient Care Overview Goal: Plan of Care/Patient Progress Review Outcome: No Change Pt reports pink spotting throughout day and at times of urination, noted by this author. No bright red bleeding or spotting. No contractions visible during monitoring, however patient reports lower abdominal cramping every 10 minutes for 10-15 seconds. Patient expressing frustration with pain and contractions. Plan of care reviewed with patient. Patient offered crocheting lessons, but declined whenvolunteer arrived on unit. FHR baseline 140s, with moderate variability and without decelerations. ESTIMATOR Plan of Care - Annie Allen RN - 12/24/2016 6:58 AM CST Problem: Patient Care Overview Goal: Plan of Care/Patient Progress Review Outcome: No Change Premature Rupture of Membranes Data: Afebrile. Leaking scant amounts of clear, yellow tinged fluid. Following sterile speculum exampt had scant amount of pink tinged fluid. Contraction pattern absent. assessment Appropriate for Gestational Age at the time of this note. Pt comfortable overnight and reported cramping discomfort x1 when monitors placed. Wet prep results positive for yeast - Diflucan ordered. Interventions: Monitor vital signs and indicators of infection every 4 hours while awake. Continue uterine/ assessment TID. Activity level: Regular activity.Encourage active range of motion and frequent position changes. Plan: Continue expectant management. Observe for and notify care provider of indicators of progressing labor, signs/symptoms of infection, or /maternal compromise. ESTIMATOR Plan of Care - Annie Allen RN - 12/24/2016 12:41 AM CST Problem: PROM, PPROM, Prolonged Rupture of Membranes (Adult,Obstetrics,Pediatric) Goal: Signs and Symptoms of Listed Potential Problems Will be Absent, Minimized or Managed (PROM, PPROM, Prolonged Rupture of Membranes) Signs and symptoms of listed potential problems will be absent, minimized or managed by discharge/transition of care (reference PROM, PPROM, Prolonged Rupture of Membranes (Adult,Obstetrics,Pediatric) CPG). Outcome: No Change Pt stating she was feeling contractions that started earlier in the day on 12/23 - roughly every [address] Kang notified and speculum exam performed and per Dr. Kang pt appeared closed and thick. UA/UC, and wet prep collected. Pt given hot packs for cramping and comfortable, feeling reassured after exam. Continue plan of care. ESTIMATOR Provider Notification - Annie Allen RN - 12/24/2016 12:02 AM CST 12/24/16 0002 Provider Notification Provider Name/Title Dr. Kang Method of Notification Electronic Page Request Evaluate - Remote Notification Reason Other (Comment) Pt requesting UA/UC for increased urine frequency. Thanks ESTIMATOR Provider Notification - Juanis Henson RN - 12/23/2016 11:31 PM CST 12/23/16 2330 Provider Notification Provider Name/Title Dr. Kang Method of Notification Electronic Page Request Evaluate - Remote Notification Reason Status Update Patient still cramping. States has had pressure past couple hours. States do I have to cry for the doctors to do anything. RN. Dr. Kang called back and will see patient when she returns to floor. ESTIMATOR Plan of Care - Juanis Henson RN - 12/23/2016 11:12 PM CST Problem: Patient Care Overview Goal: Plan of Care/Patient Progress Review Outcome: Declining Patient was sleeping, but then woke up to be taken off monitor. Stated that she is still cramping. Also stated that she has had pressure the last couple hours. States in lower back. RN asked if she felt rectal pressure, and she stated I don't know. Also commented that the doctors won't do anything until I start crying I assured patient that we are keeping a close eye on her and her symptoms. RN will talk with Dr. Kang. ESTIMATOR Plan of Care - Juanis Henson RN - 12/23/2016 10:30 PM CST Problem: Patient Care Overview Goal: Plan of Care/Patient Progress Review Outcome: No Change Patient c/o increase in cramping this evening. Did not show on monitor. Uterus palpates soft when patient is feeling a cramp. Patient knows to call if cramping worsens or bleeding. Knows to make note of when she last ate, in case she progresses into labor. ESTIMATOR Provider Notification - Leslie Mendoza RN - 12/23/2016 3:35 PM CST 12/23/16 0755 Provider Notification Provider Name/Title Dr. Walsh, Dr. Barone, Med student Method of Notification At Bedside Request Evaluate in Person Notification Reason Status Update ESTIMATOR Plan of Care - Leslie Mendoza RN - 12/23/2016 3:02 PM CST Problem: PROM, PPROM, Prolonged Rupture of Membranes (Adult,Obstetrics,Pediatric) Goal: Signs and Symptoms of Listed Potential Problems Will be Absent, Minimized or Managed (PROM, PPROM, Prolonged Rupture of Membranes) Signs and symptoms of listed potential problems will be absent, minimized or managed by discharge/transition of care (reference PROM, PPROM, Prolonged Rupture of Membranes (Adult,Obstetrics,Pediatric) CPG). Outcome: No Change Data: Afebrile. Leaking small amounts of yellow tinged fluid. Contraction pattern stable and within parameters. assessment Reactive. Signs and symptoms of infection absent. Interventions: Monitor vital signs and indicators of infection every 4 hours while awake. Continue uterine/ assessment every shift as ordered. Activity level: Regular activity Unrestricted activity, suppose to stay on unit, but patient ambulates outside to smoke. Preventive measures include Positioning and Frequent voiding. Encourage active range of motion and frequent position changes. Plan: Continue expectant management. Observe for and notify care provider of indicators of progressing labor, signs/symptoms of infection, or /maternal compromise. ESTIMATOR Provider Notification - Leslie Mendoza RN - 12/23/2016 12:31 PM CST 12/23/16 0945 OB Patient Position Activity/Level of Assist Ambulating Patient went outside ESTIMATOR Provider Notification - Leslie Mendoza RN - 12/23/2016 12:31 PM CST 12/23/16 0720 OB Patient Position Maternal Position Standing Activity/Level of Assist Ambulating Patient went outside (to smoke) ESTIMATOR Provider Notification - Leslie Mendoza RN - 12/23/2016 7:58 AM CST Providers here for morning rounds and EFM strip review. Patient concerned about her oral pain on hertongue. There is a sore/ulceration there. Providers reminding patient to NOT self examine digitally her cervix. ESTIMATOR Plan of Care - Bonita Love RN - 12/23/2016 6:59 AM CST Problem: Patient Care Overview Goal: Plan of Care/Patient Progress Review Outcome: Therapy, progress towards functional goals is fair Vital signs stable. Patient remains afebrile. Patient continues to leak a moderate amount of yellow fluid with no odor. Patient denies any vaginal bleeding, abdominal tenderness, cramping or lower backpain. FHR appropriate for gestational age. Will continue with current plan of care. ESTIMATOR Provider Notification - Bonita Love RN - 12/22/2016 8:02 PM COST ESTIMATOR 12/22/162000 Provider Notification Provider Name/Title Dr. Kang Method of Notification In Department Notification Reason Other (Comment) Patient reporting increased leaking of fluid today. Yellow colored on pads, no odor. Patient is not having any abdominal tenderness. Afebrile. Pt declines monitoring at this time. Dr. Kang updated. ESTIMATOR Plan of Care - Yareli Marsh RN - 12/22/2016 1:58 PM CST Pt with no new complaints. Denies vaginal bleeding. Reports clear fluid leaking and mucous. Continues to request Tylenol for pain on her tongue that she relates to her sharp teeth (with cavities that need to be filled) rubbing against. Plans for dental consult per Dr. Mohamud. and son here today. Will continue with plan of care. ESTIMATOR Plan of Care - Wendy Richter RN - 12/22/2016 6:19 AM CST Problem: PROM, PPROM, Prolonged Rupture of Membranes (Adult,Obstetrics,Pediatric) Goal: Signs and Symptoms of Listed Potential Problems Will be Absent, Minimized or Managed (PROM, PPROM, Prolonged Rupture of Membranes) Signs and symptoms of listed potential problems will be absent, minimized or managed by discharge/transition of care (reference PROM, PPROM, Prolonged Rupture of Membranes (Adult,Obstetrics,Pediatric) CPG). Outcome: No Change Patient able to sleep through the night. Denies pain, contractions, bleeding. States still clear fluid. VSS; EFM as charted. Continue expectant management. ESTIMATOR Plan of Care - Wendy Richter RN - 12/22/2016 3:13 AM CST Due to daylight savings time, labor calculations, ruptured membrane calculations and/or cervical exams times may be off by up to one hour from the actual time. A summary of the times/calcuations follows: None for this patient. ESTIMATOR Plan of Care - So Cheng RN - 12/21/2016 11:15 PM CDT Problem: Patient Care Overview Goal: Plan of Care/Patient Progress Review Outcome: Improving Patient stable. Leaking clear fluid. 1 ctx seen on monitor but she didn't feel it. FHR AGA; rare VD.Patient frustrated about hospital stay. Boyfriend and son spending the night. Continue with plan of care. Plan of Care - Yareli Marsh RN - 12/21/2016 1:52 PM CDT Pt with no complaints today. and son here visiting all day. Denies bleeding. Reports rare contractions. Afebrile and no s/s of infection. Will continue to monitor and support. Plan of Care - Ann Marie Rossi RN - 12/21/2016 7:38 AM CDT Problem: Patient Care Overview Goal: Plan of Care/Patient Progress Review Outcome: No Change VSS. Pt reports continuing to leak fluid. Denies foul odor to fluid, vaginal bleeding, or uterine tenderness. Afebrile. FHTs appropriate for gestational age. Uterus quiet on toco. PIV replaced as last one was leaking. Received tylenol for some tongue pain- Pt reports teeth sometimes scrap tongue making it painful. Plan of Care - Franca Mcfadden RN - 12/20/2016 11:06 PM CDT Problem: PROM, PPROM, Prolonged Rupture of Membranes (Adult,Obstetrics,Pediatric) Goal: Signs and Symptoms of Listed Potential Problems Will be Absent, Minimized or Managed (PROM, PPROM, Prolonged Rupture of Membranes) Signs and symptoms of listed potential problems will be absent, minimized or managed by discharge/transition of care (reference PROM, PPROM, Prolonged Rupture of Membranes (Adult,Obstetrics,Pediatric) CPG). Outcome: No Change Labor Shift Note Data: Contraction pattern none noted. assessment Appropriate for Gestational Age. Tocolysis: none. Betamethasone Completed.Magnesium Sulfate for neuroprotection previously. Interventions: Continue uterine/ assessment 3 times daily. Activity level:Regular activity, andpreventive measures including Positioning and Frequent voiding. Encourage active range of motion andfrequent position changes. Plan: Continue expectant management. Observe for and notify care provider of indications of progressing labor or signs of /maternal compromise. Pt reports having a quiet night with and son. They have been working on some [employer] [place] watching movies. Pt continues to go outside for smoking and returns promptly. Pt states she has a ctx or two an hours, but denies that they are painful. Pt also denies any vb, but is continuing to have scant amounts of clear fluid. Pt offers no voiced concerns. Plan of Care - Nakia Figueroa PTA - 12/20/2016 5:06 PM CDT Problem: PT General Care Plan Goal: PT target date for goal attainment PT: patient very distracted on arrival and practiced stretches and then requested to have session rescheduled since she had to use the bathroom for longer period of time. Melter Helper PT Patient plan for discharge: home Current status: independent with mobility Barriers to return to prior living situation: none Recommendations for discharge: home with OP PT Rationale for recommendations: management of pain. Entered by: Nakia Figueroa 12/20/2016 5:05 PM Plan of Care - Yareli Marsh RN - 12/20/2016 12:09 PM CDT Pt denies vaginal bleeding. Reports occasional contractions. Continues to leak clear fluid. Out to smoke and returns to room promptly. Requested Tylenol for ear pain. Is interested in acupuncture service that is available this afternoon. Order in chart. Will continue to monitor and assist. Plan of Care - Vivian Bradford RN - 12/20/2016 6:48 AM CDT Problem: PROM, PPROM, Prolonged Rupture of Membranes (Adult,Obstetrics,Pediatric) Goal: Signs and Symptoms of Listed Potential Problems Will be Absent, Minimized or Managed (PROM, PPROM, Prolonged Rupture of Membranes) Signs and symptoms of listed potential problems will be absent, minimized or managed by discharge/transition of care (reference PROM, PPROM, Prolonged Rupture of Membranes (Adult,Obstetrics,Pediatric) CPG). Outcome: No Change Vital signs stable and afebrile. Patient denies cramping, abdominal tenderness, bleeding, backache, nausea/vomiting. Patient slept well throughout shift and will continue to monitor and update providerwith any changes. [place] quiet and EFM mod variability, occasional accels, and no decels. Plan of Care - So Solano RN - 12/19/2016 8:55 PM CDT Problem: PROM, PPROM, Prolonged Rupture of Membranes (Adult,Obstetrics,Pediatric) Goal: Signs and Symptoms of Listed Potential Problems Will be Absent, Minimized or Managed (PROM, PPROM, Prolonged Rupture of Membranes) Signs and symptoms of listed potential problems will be absent, minimized or managed by discharge/transition of care (reference PROM, PPROM, Prolonged Rupture of Membranes (Adult,Obstetrics,Pediatric) CPG). Patient had a headache at the beginning of the shift. Feels better after tylenol. Afebrile. Out to smoke x2 for 10 minutes. Plan of Care - So Vega RN - 12/19/2016 8:49 AM CDT Problem: PROM, PPROM, Prolonged Rupture of Membranes (Adult,Obstetrics,Pediatric) Goal: Signs and Symptoms of Listed Potential Problems Will be Absent, Minimized or Managed (PROM, PPROM, Prolonged Rupture of Membranes) Signs and symptoms of listed potential problems will be absent, minimized or managed by discharge/transition of care (reference PROM, PPROM, Prolonged Rupture of Membranes (Adult,Obstetrics,Pediatric) CPG). Outcome: No Change Pt comfortable this a.m. Reports sleeping well. No visitors last diana but worked on [employer] and did other crafts/games. No complaints today. Reports rash is improving. Would like placement of 2nd IV as current one in right forearm painful when flushed and wouldn't hurt to have two. Plans for a.m. Meds, afternoon NST, offer assist with cares and to call with needs. Plan of Care - Vivian Bradford RN - 12/19/2016 7:07 AM CDT Problem: PROM, PPROM, Prolonged Rupture of Membranes (Adult,Obstetrics,Pediatric) Goal: Signs and Symptoms of Listed Potential Problems Will be Absent, Minimized or Managed (PROM, PPROM, Prolonged Rupture of Membranes) Signs and symptoms of listed potential problems will be absent, minimized or managed by discharge/transition of care (reference PROM, PPROM, Prolonged Rupture of Membranes (Adult,Obstetrics,Pediatric) CPG). Outcome: No Change Vitals within normal limits and afebrile throughout shift. Denies pelvic tenderness, pressure, bleeding, and change in vaginal discharge. Leaking small/mod amniotic fluid. Patient complains of occasional contraction. Able to sleep throughout shift. Flushed PIVs this am and tender on left forearm. Pulled left forearm PIV due to tenderness. Right PIV flushed well. Patient leaves floor for approx 10 minutes and returns promptly. Will continue to monitor and update provider with any changes. Plan of Care - So Solano RN - 12/18/2016 11:28 PM CDT Problem: PROM, PPROM, Prolonged Rupture of Membranes (Adult,Obstetrics,Pediatric) Goal: Signs and Symptoms of Listed Potential Problems Will be Absent, Minimized or Managed (PROM, PPROM, Prolonged Rupture of Membranes) Signs and symptoms of listed potential problems will be absent, minimized or managed by discharge/transition of care (reference PROM, PPROM, Prolonged Rupture of Membranes (Adult,Obstetrics,Pediatric) CPG). Patient had 1 episode of having a gush of clear fluid around 5 pm. Afebrile. No contractions noted on efm. FHR 135 with accels no decels. Took some tylenol for back pain x1 this evening. Feels her bennett her left side is Better and is gone now. Went outside x 2 this evening for 10 minutes each time. Plan of Care - Roxy Sr, PT - 12/18/2016 11:13 AM CDT Problem: Patient Care Overview Goal: Plan of Care/Patient Progress Review Pt was getting a hand massage from volunteer that she wished to continue and declined PT. Requested another PT appt time. Pt informed she is scheduled for 2x/week. Unable to accommodate request today. We will reschedule for tomorrow. Plan of Care - So Vega RN - 12/18/2016 8:46 AM CDT Problem: PROM, PPROM, Prolonged Rupture of Membranes (Adult,Obstetrics,Pediatric) Goal: Signs and Symptoms of Listed Potential Problems Will be Absent, Minimized or Managed (PROM, PPROM, Prolonged Rupture of Membranes) Signs and symptoms of listed potential problems will be absent, minimized or managed by discharge/transition of care (reference PROM, PPROM, Prolonged Rupture of Membranes (Adult,Obstetrics,Pediatric) CPG). Outcome: No Change Pt reports no change in color or amount of fluid leaking. Wears pad with infrequent changes. Denies ctx. Reports constipation, BM yesterday x 2 but hard, reports senna that was started Friday is helping. Hydration enc. Reports some neck pain, hard for her to describe but hurts when she turns her head.Tylenol given at 0400, will use hot packs for now and request ice if necessary. Due for tylenol at 10 and will request if pain persists. Rash inner UE and axillary as well as left upper abd. [place], raised areas, itches but also [place] per pt more than pruritic, reports hydrocortisone is somewhat helpful. Missed seeing and being with children on Halloween but spoke to them and heard about the night. Pl an for a.m. Meds, p.m. Monitoring. Pt reports she will be going out to smoke soon. Plan of Care - Nesha Humphrey RN - 12/18/2016 5:12 AM CDT Problem: PROM, PPROM, Prolonged Rupture of Membranes (Adult,Obstetrics,Pediatric) Goal: Signs and Symptoms of Listed Potential Problems Will be Absent, Minimized or Managed (PROM, PPROM, Prolonged Rupture of Membranes) Signs and symptoms of listed potential problems will be absent, minimized or managed by discharge/transition of care (reference PROM, PPROM, Prolonged Rupture of Membranes (Adult,Obstetrics,Pediatric) CPG). Outcome: No Change VSS. Afebrile. IV saline locked. +FM. Denies vaginal bleeding. Per pt report, continues to leak clear amniotic fluid, more today than usual, and has occasional contraction. Hydrocortisone cream appliedto rash, subutex given, tylenol given for neck pain (see MAR). See flowsheets for contraction and heart rate monitoring. Continue with plan of care. Plan of Care - Mark Mcclellan CNM - 12/17/2016 9:59 PM CDT Problem: PROM, PPROM, Prolonged Rupture of Membranes (Adult,Obstetrics,Pediatric) Goal: Signs and Symptoms of Listed Potential Problems Will be Absent, Minimized or Managed (PROM, PPROM, Prolonged Rupture of Membranes) Signs and symptoms of listed potential problems will be absent, minimized or managed by discharge/transition of care (reference PROM, PPROM, Prolonged Rupture of Membranes (Adult,Obstetrics,Pediatric) CPG). Outcome: No Change Pt doing fine this evening. Outside to smoke occasionally. No change in LOF. Awaiting evening monitor as pt has not been ready yet. Continue expectant management. Notify provider team with concerns. Plan of Care - Rubia Oseguera RN - 12/17/2016 8:58 PM CDT Problem: PROM, PPROM, Prolonged Rupture of Membranes (Adult,Obstetrics,Pediatric) Goal: Signs and Symptoms of Listed Potential Problems Will be Absent, Minimized or Managed (PROM, PPROM, Prolonged Rupture of Membranes) Signs and symptoms of listed potential problems will be absent, minimized or managed by discharge/transition of care (reference PROM, PPROM, Prolonged Rupture of Membranes (Adult,Obstetrics,Pediatric) CPG). Outcome: No Change VSS, patient denies mahnaz or bleeding, continues to leak clear fluid; positive movement.New rash on left trunk and bilateral arm/ armpits. New order for steroidal cream to be prescribed byresident. IV in left forearm noted to be reddened and painful, IV removed and new placed in R lower forearm and saline locked. Patient off unit to smoke once this shift. Continue expectant management. Provider Notification - Rubia Oseguera RN - 12/17/2016 8:42 PM CDT Patient c/o painful itchy rash which started on Left trunk and has now spread to bilateral arm/armpits. Resident at bedside to assess and will order topical steroid cream. Plan of Care - Aaliyah Muñiz RN - 12/17/2016 1:44 PM CDT Problem: PROM, PPROM, Prolonged Rupture of Membranes (Adult,Obstetrics,Pediatric) Goal: Signs and Symptoms of Listed Potential Problems Will be Absent, Minimized or Managed (PROM, PPROM, Prolonged Rupture of Membranes) Signs and symptoms of listed potential problems will be absent, minimized or managed by discharge/transition of care (reference PROM, PPROM, Prolonged Rupture of Membranes (Adult,Obstetrics,Pediatric) CPG). Data: Maternal status stable. Pt reports occasional loss of fluid which remains clear. assessment is appropriate for gestational age. Action: Continue with plan of care, which is monitor closely. Patient encouraged to move extremitieswhile in bed. Response: Patient coping with support of family. Plan of Care - Nicole Marrero RN - 12/17/2016 6:47 AM CDT Problem: PROM, PPROM, Prolonged Rupture of Membranes (Adult,Obstetrics,Pediatric) Goal: Signs and Symptoms of Listed Potential Problems Will be Absent, Minimized or Managed (PROM, PPROM, Prolonged Rupture of Membranes) Signs and symptoms of listed potential problems will be absent, minimized or managed by discharge/transition of care (reference PROM, PPROM, Prolonged Rupture of Membranes (Adult,Obstetrics,Pediatric) CPG). Outcome: No Change Data: Afebrile. Leaking scant amounts of clear fluid. Denies ctxs. FHT appropriate for gestational age. Signs and symptoms of infection not present. Interventions: Monitor vital signs and indicators of infection every 4 hours while awake. Continue uterine/ assessment TID or PRN. Activity level: Regular activity. Pt out several times overnight to smoke. Preventive measures include Frequent voiding. Encourage active range of motion and frequentposition changes. Plan: Continue expectant management. Observe for and notify care provider of indicators of progressing labor, signs/symptoms of infection, or /maternal compromise. Plan of Care - Mecca Nicolas RN - 12/16/2016 10:56 PM CDT Problem: Patient Care Overview Goal: Plan of Care/Patient Progress Review Outcome: No Change Premature Rupture of Membranes Data: Afebrile. Leaking small amounts of clear fluid. Contraction pattern stable and within parameters. assessment Appropriate for Gestational Age. Signs and symptoms of infection absent. . Latency antibiotic course complete. Betamethasone Completed given on 12/07 and 12/08. Interventions: Monitor vital signs and indicators of infection every 4 hours while awake. Continue uterine/ assessment 3 times daily. BPP/doppler every Friday, . Activity level: Regular activity. Preventive measures include Positioning and Frequent voiding. Encourage active range of motion and frequent position changes. Plan: Continue expectant management. Observe for and notify care provider of indicators of progressing labor, signs/symptoms of infection, or /maternal compromise. Plan of Care - So Vega RN - 12/16/2016 10:27 AM CDT Problem: PROM, PPROM, Prolonged Rupture of Membranes (Adult,Obstetrics,Pediatric) Goal: Signs and Symptoms of Listed Potential Problems Will be Absent, Minimized or Managed (PROM, PPROM, Prolonged Rupture of Membranes) Signs and symptoms of listed potential problems will be absent, minimized or managed by discharge/transition of care (reference PROM, PPROM, Prolonged Rupture of Membranes (Adult,Obstetrics,Pediatric) CPG). Outcome: No Change Pt reports no change in fluid amount or consistency. No bleeding. Active baby. Discuss plans for theday, monitoring, meds, hospital wide activities this week. Will find diversionary activities for pt.Pt to call with needs. Plan of Care - Tarsha Vega RN - 12/16/2016 6:45 AM CDT Problem: PROM, PPROM, Prolonged Rupture of Membranes (Adult,Obstetrics,Pediatric) Goal: Signs and Symptoms of Listed Potential Problems Will be Absent, Minimized or Managed (PROM, PPROM, Prolonged Rupture of Membranes) Signs and symptoms of listed potential problems will be absent, minimized or managed by discharge/transition of care (reference PROM, PPROM, Prolonged Rupture of Membranes (Adult,Obstetrics,Pediatric) CPG). Outcome: Improving Pt stable, VS WDL. Pt denies: bleeding, contractions, headache. Pt c/o of back and neck pain, heat packs given for relief. FHR appropriate for gestational age. Plan of Care - So Cheng RN - 12/15/2016 10:11 PM CDT Problem: Patient Care Overview Goal: Plan of Care/Patient Progress Review Outcome: Improving VSS. No vaginal bleeding. Leaking clear yellowish fluid. FHR cat 1. No contractions. Denies pain. Continue with plan of care. Plan of Care - Nakia Figueroa PTA - 12/15/2016 5:51 PM CDT Problem: PT General Care Plan Goal: PT target date for goal attainment PT:patient participated with postural exercises and relief with suboccipital release. Melter Helper PT Patient plan for discharge: home Current status: independent with mobility. Pain 5/10 Barriers to return to prior living situation: none Recommendations for discharge: home and continue PT in OP setting to manage pain Rationale for recommendations: could benefit from continued PT for neck and back until resolved. Entered by: Nakia Figueroa 12/15/2016 5:48 PM Plan of Care - Alejandra Degroot RN - 12/15/2016 3:32 PM CDT Problem: PROM, PPROM, Prolonged Rupture of Membranes (Adult,Obstetrics,Pediatric) Goal: Signs and Symptoms of Listed Potential Problems Will be Absent, Minimized or Managed (PROM, PPROM, Prolonged Rupture of Membranes) Signs and symptoms of listed potential problems will be absent, minimized or managed by discharge/transition of care (reference PROM, PPROM, Prolonged Rupture of Membranes (Adult,Obstetrics,Pediatric) CPG). Outcome: Therapy, progress toward functional goals as expected D: Patient offers no complaints. Family went home today and will return next Friday which had Ludmila cristoballe down. States no bleeding, no contractions noted. P: Continue to monitor. Plan of Care - Tarsha Vega RN - 12/15/2016 7:01 AM CDT Problem: PROM, PPROM, Prolonged Rupture of Membranes (Adult,Obstetrics,Pediatric) Goal: Signs and Symptoms of Listed Potential Problems Will be Absent, Minimized or Managed (PROM, PPROM, Prolonged Rupture of Membranes) Signs and symptoms of listed potential problems will be absent, minimized or managed by discharge/transition of care (reference PROM, PPROM, Prolonged Rupture of Membranes (Adult,Obstetrics,Pediatric) CPG). Outcome: Improving Pt stable, VS WDL. Pt denies bleeding, leaking of fluid, contractions. Occasional ctx per toco. FHR appropriate for gestational age. Plan of Care - So Cheng RN - 12/14/2016 10:23 PM CDT Problem: Patient Care Overview Goal: Plan of Care/Patient Progress Review Outcome: Improving VSS. Denies pain. Leaking scant, clearish pink fluid. She took a shower this evening and stated she had one small bloody/mucous clot. No other bleeding. No contractions, FHR AGA. and two kids were with her all day. She left unit twice to smoke and was gone for about 10 minutes each time. Continue to monitor. Plan of Care - Alejandra Degroot RN - 12/14/2016 1:32 PM CDT Problem: PROM, PPROM, Prolonged Rupture of Membranes (Adult,Obstetrics,Pediatric) Goal: Signs and Symptoms of Listed Potential Problems Will be Absent, Minimized or Managed (PROM, PPROM, Prolonged Rupture of Membranes) Signs and symptoms of listed potential problems will be absent, minimized or managed by discharge/transition of care (reference PROM, PPROM, Prolonged Rupture of Membranes (Adult,Obstetrics,Pediatric) CPG). Outcome: Therapy, progress toward functional goals as expected D: Patient called senior writer into room at 1230 stating pain in her side after laughing at the cartoon onthe tv. Placed on EFM, no contractions noted accelerations and baby appropriate for gestational age.Patient called senior writer back into room at 1305 stating that the pain was gone and that she needed to go out and smoke. Instructed her that we would like to get 1 hour of EFM. Patient states the pain in gone and she needs to get outside. Monitors removed and will monitor later today. P :Continue to monitor. Provider Notification - Laney Silva RN - 12/14/2016 7:49 AM CDT 12/14/16 0700 Provider Notification Provider Name/Title Dr. Cyr Method of Notification In Department Request Evaluate in Person Notification Reason Other (Comment) Pt. Still having mucus discharge. This am is pink and not reddish pink. Dr. Cyr notified that she is still having mucus discharge when up to the bathroom. States this will be evaluated this am. Continue to monitor for s/s ptl/infection/bleeding. Plan of Care - Laney Silva RN - 12/14/2016 7:00 AM CDT Problem: Patient Care Overview Goal: Plan of Care/Patient Progress Review Outcome: No Change Spa Host went to assess vital signs. Pt. Stated that she had some reddish pink mucus in the toilet andsome pink fluid on the toilet tissue. Small quarter sized reddish pink mucus noted in the bottom of the toilet. Urine was yellow colored, no blood noted. Spa Host placed and uterine monitors on thepatient. Patient denies cramping, contractions, backache or pelvic pressure. Abdomen soft, non-tender to palpation. AFVSS. Dr. Cyr notified of previous written. State to continue to monitor. Continue present cares. Provider Notification - Laney Silva RN - 12/14/2016 4:39 AM CDT 12/14/16 0435 Provider Notification Provider Name/Title Dr. Cyr Method of Notification Phone Request Evaluate - Remote Notification Reason Other (Comment) Pt. With scant bloody mucus in toilet when voided. [place] on toilet tissue. Dr. Cyr notified of previous written and that monitors applied. Continue to monitor. Plan of Care - Shruthi Mendoza RN - 12/13/2016 10:55 PM CDT Problem: PROM, PPROM, Prolonged Rupture of Membranes (Adult,Obstetrics,Pediatric) Goal: Signs and Symptoms of Listed Potential Problems Will be Absent, Minimized or Managed (PROM, PPROM, Prolonged Rupture of Membranes) Signs and symptoms of listed potential problems will be absent, minimized or managed by discharge/transition of care (reference PROM, PPROM, Prolonged Rupture of Membranes (Adult,Obstetrics,Pediatric) CPG). Outcome: Improving Pt continues to leak scant clear fluid intermittently. Denies bleeding, cramping/mahnaz. No cx on toco. VSS. FHR baseline 145, moderate variability, accelerations present, no decelerations. Pt took PRN tylenol for a back ache this diana and PRN flexeril at bedtime for muscle spasms. Pt's family wheeled her outside every few hours, pt was not gone longer than 30min. Will continue to monitor. Plan of Care - Alejandra Degroot RN - 12/13/2016 2:52 PM CDT Problem: PROM, PPROM, Prolonged Rupture of Membranes (Adult,Obstetrics,Pediatric) Goal: Signs and Symptoms of Listed Potential Problems Will be Absent, Minimized or Managed (PROM, PPROM, Prolonged Rupture of Membranes) Signs and symptoms of listed potential problems will be absent, minimized or managed by discharge/transition of care (reference PROM, PPROM, Prolonged Rupture of Membranes (Adult,Obstetrics,Pediatric) CPG). Outcome: Therapy, progress toward functional goals as expected D: Patient states small amount of clear fluid noted today, denies bleeding. Denies contractions. Patient decided to have MRI to determine placenta location, patient went down for MRI at 1300 will monitor when she returns to unit. Patient states she has some back ache that is relieved with hot packs and looking forward to physical therapy showing her some exercises. P: Continue to monitor. Plan of Care - Taylor Childress RN - 12/13/2016 6:35 AM CDT Problem: Patient Care Overview Goal: Plan of Care/Patient Progress Review Outcome: No Change Data: Patient complains of back ache all night and crampy feeling this morning, however has been asleep on when RN rounds on pt. As of 30 minutes on the monitor, no contractions seen. FHT's: Appropriate for Gestational Age., MARCELLA:1.0. Betamethasone Completed given on 12/08 and 1023 Maternal vital signsstable. Intervention: Continue uterine/ assessment 3 times daily. Activity level:Regular activity. BPP/doppler every Friday, . Plan: Continue expectant management. Notify provider of signs of maternal/ compromise. Provide support for parents for potential early delivery of compromised (s). Plan of Care - Ping Barker RN - 12/12/2016 10:12 PM CDT Problem: Patient Care Overview Goal: Plan of Care/Patient Progress Review Premature Rupture of Membranes Data: Afebrile. Denies leaking this shift. Contraction pattern stable and within parameters. assessment Reactive. Signs and symptoms of infection absent. Latency antibiotic course in progress. Betamethasone Completed. Interventions: Monitor vital signs and indicators of infection every 4 hours while awake. Continue uterine/ assessment 3 times daily. BPP/doppler every Friday, . Activity level: Regular activity. Preventive measures include Positioning and Frequent voiding. Encourage active range of motion and frequent position changes. Plan: Continue expectant management. Observe for and notify care provider of indicators of progressing labor, signs/symptoms of infection, or /maternal compromise. Provider Notification - Carol Castle RN - 12/12/2016 12:02 PM CDT 12/12/16 1159 Provider Notification Provider Name/Title Dr Kang Method of Notification Electronic Page Request Evaluate in Person Notification Reason Pain Called into room. Pt reports feeling constant lower uterine and back aching for past 5. No bleedingpresent. Placed on monitors. Palpates soft. FHR 145. VSS, Plan of Care - Carol Castle RN - 12/12/2016 10:57 AM CDT Problem: PROM, PPROM, Prolonged Rupture of Membranes (Adult,Obstetrics,Pediatric) Goal: Signs and Symptoms of Listed Potential Problems Will be Absent, Minimized or Managed (PROM, PPROM, Prolonged Rupture of Membranes) Signs and symptoms of listed potential problems will be absent, minimized or managed by discharge/transition of care (reference PROM, PPROM, Prolonged Rupture of Membranes (Adult,Obstetrics,Pediatric) CPG). Outcome: No Change Pt instructed to inform her RN if she goes outside. Pt instructed to have an escort when outside andto have wheelchair with her. Per pt, she smokes cigarettes sometimes when she goes outside. Pt offered nicotine gum. Pt declines at this time. With child protective services social worker at this time. Pt declines a nicotine patch or gum. Plan of Care - Carol Castle RN - 12/12/2016 9:11 AM CDT Problem: PROM, PPROM, Prolonged Rupture of Membranes (Adult,Obstetrics,Pediatric) Goal: Signs and Symptoms of Listed Potential Problems Will be Absent, Minimized or Managed (PROM, PPROM, Prolonged Rupture of Membranes) Signs and symptoms of listed potential problems will be absent, minimized or managed by discharge/transition of care (reference PROM, PPROM, Prolonged Rupture of Membranes (Adult,Obstetrics,Pediatric) CPG). Outcome: No Change Pt had morning US. Monitor removed at 0740. Pt reports scant amount of clear fluid leaking. Clear fluid noted on the pad. Afebrile. No reported uterine tenderness. No s/s of PTL. Pt reports no pain. Plans on monitoring today at noon. Call light is within reach. Pt states understanding to put technical solutions director light if any change in condition. Plan of Care - Nesha Humphrey RN - 12/12/2016 6:31 AM CDT Problem: PROM, PPROM, Prolonged Rupture of Membranes (Adult,Obstetrics,Pediatric) Goal: Signs and Symptoms of Listed Potential Problems Will be Absent, Minimized or Managed (PROM, PPROM, Prolonged Rupture of Membranes) Signs and symptoms of listed potential problems will be absent, minimized or managed by discharge/transition of care (reference PROM, PPROM, Prolonged Rupture of Membranes (Adult,Obstetrics,Pediatric) CPG). Outcome: No Change VSS. Afebrile. IV saline locked. +FM. Denies vaginal bleeding and pain. Reports occasional contraction. Small to moderate amount fluid leaking overnight, clear/light yellow in color, no foul odor, per pt report. Questions answered about C/S process. See flowsheets for contraction and heart rate m onitoring. No needs or concerns at this time. Continue with plan of care. Plan of Care - Vivian Boudreaux RN - 12/11/2016 9:57 PM CDT Problem: PROM, PPROM, Prolonged Rupture of Membranes (Adult,Obstetrics,Pediatric) Goal: Signs and Symptoms of Listed Potential Problems Will be Absent, Minimized or Managed (PROM, PPROM, Prolonged Rupture of Membranes) Signs and symptoms of listed potential problems will be absent, minimized or managed by discharge/transition of care (reference PROM, PPROM, Prolonged Rupture of Membranes (Adult,Obstetrics,Pediatric) CPG). Outcome: No Change VSS. Denies ctx, ctx, reports occ scant clear fluid. No other complaints. Continue present management. Plan of Care - Nora Kovacs, PT - 12/11/2016 3:10 PM CDT Problem: Patient Care Overview Goal: Plan of Care/Patient Progress Review Melter Helper PT Patient plan for discharge: Home Current status: Pt IND with all mobility. C/o increase neck and back pain d/t and decreased mobility while in hospital. Pt provided soft tissue mobilizations, stretches and exercises to perform. Pt responded well with report of decreased pain. PT will continue to work with pt 2x/week until pt is IND with HEP Barriers to return to prior living situation: medical status Recommendations for discharge: Home and OP PT if pain persists Rationale for recommendations: Pt would benefit from continued PT to treat neck/back pain until problem resolved d/t pain could increase while caring for baby. Entered by: Nora Kovacs 12/11/2016 3:06 PM Plan of Care - Carol Castle RN - 12/11/2016 2:38 PM CDT Problem: PROM, PPROM, Prolonged Rupture of Membranes (Adult,Obstetrics,Pediatric) Goal: Signs and Symptoms of Listed Potential Problems Will be Absent, Minimized or Managed (PROM, PPROM, Prolonged Rupture of Membranes) Signs and symptoms of listed potential problems will be absent, minimized or managed by discharge/transition of care (reference PROM, PPROM, Prolonged Rupture of Membranes (Adult,Obstetrics,Pediatric) CPG). Outcome: No Change Seen by NIK Tse this afternoon. Parking pass/info given to her s/o. Requested a letter from theprovider regarding pt's hospitalization. Pt is comfortable. She reports no vag bleeding and no change with vag discharge. Pt offered to go on the monitor around noon but declined until later. Pt seen by PT. Pt is declining monitoring until after she visits with her s/o and son. Pt is happy to see her family. Pt will return to the room if any change in her condition. Plan of Care - Carol Castle RN - 12/11/2016 11:51 AM CDT Problem: PROM, PPROM, Prolonged Rupture of Membranes (Adult,Obstetrics,Pediatric) Goal: Signs and Symptoms of Listed Potential Problems Will be Absent, Minimized or Managed (PROM, PPROM, Prolonged Rupture of Membranes) Signs and symptoms of listed potential problems will be absent, minimized or managed by discharge/transition of care (reference PROM, PPROM, Prolonged Rupture of Membranes (Adult,Obstetrics,Pediatric) CPG). Outcome: No Change Per pt, she normally takes the subutex daily at these times 0400, 0800, 1300, 1700 & 2200. Per Dr. Mohamud, margareth to reschedule emar times to match. Pt is comfortable. PT is scheduled for 1300 today. Per pt, she has been taking baths. Per Dr. Mohamud, showers only. Pt updated and moving forward will only take a shower. Plan of Care - Carol Castle RN - 12/11/2016 10:44 AM CDT Problem: PROM, PPROM, Prolonged Rupture of Membranes (Adult,Obstetrics,Pediatric) Goal: Signs and Symptoms of Listed Potential Problems Will be Absent, Minimized or Managed (PROM, PPROM, Prolonged Rupture of Membranes) Signs and symptoms of listed potential problems will be absent, minimized or managed by discharge/transition of care (reference PROM, PPROM, Prolonged Rupture of Membranes (Adult,Obstetrics,Pediatric) CPG). Outcome: No Change Pt is comfortable at this time. Pt reports having neck pain at times. She uses heat/cold for relief.PT is scheduled for 1300 today. Pt reports no fluid or vag bleeding. Pt reports no s/s of PTL. Afrebile. No uterine tenderness. Will ask pt regarding her subutex scheduled and adjust emar as needed perDr. Mohamud. Seen by Dr. oMhamud. Call light is within reach. Pt states understanding to put technical solutions director light if any changes in condition. Plan of Care - Nesha Humphrey RN - 12/11/2016 6:28 AM CDT Problem: PROM, PPROM, Prolonged Rupture of Membranes (Adult,Obstetrics,Pediatric) Goal: Signs and Symptoms of Listed Potential Problems Will be Absent, Minimized or Managed (PROM, PPROM, Prolonged Rupture of Membranes) Signs and symptoms of listed potential problems will be absent, minimized or managed by discharge/transition of care (reference PROM, PPROM, Prolonged Rupture of Membranes (Adult,Obstetrics,Pediatric) CPG). Outcome: No Change VSS. Afebrile. Subutex given x2 (see MAR). IV saline locked. Denies vaginal bleeding. Reports occasional contraction and clear/light yellow leaking of fluid that is unchanged. Reporting occasional lower right abdomen/groin pain as well as back pain in the morning that pt attributes to moving wrong. See flowsheets for contraction and heart rate monitoring. Tdap to be given today. Continue withcurrent plan of care. Plan of Care - Pilar Ortiz RN - 12/10/2016 11:32 PM CDT Problem: Patient Care Overview Goal: Individualization & Mutuality Outcome: No Change VSS. Afebrile. Denies uterine tenderness, chills, and vaginal bleeding. Leaking small amounts of clear fluid. monitoring AGA. Anxious at times about status, reassured that assessment is AGA. Per Dr. Walsh, okay for pt to set schedule for suboxone in accordance to how pt takes medication at home. Continue with current plan of care. Provider Notification - Pilar Ortiz RN - 12/10/2016 5:32 PM CDT 12/10/16 1150 Provider Notification Provider Name/Title Dr. Kang Method of Notification Phone Notification Reason Other (Comment) Pt requesting change in Buprenorphine administration schedule. Per MD, patient okay to take med 5 times daily based on pt preferred schedule. Plan of Care - Leslie Ramsey RN - 12/10/2016 3:51 PM CDT Deann King states she is having a small amount of clear fluid leaking, and has occasional contractions, mild, and is able to sleep without waking up. States they are not increasing in frequency orintensity. Abdomen palpates soft, and toco didn't quill picking machine operator any contractions. FHT: mod variability with accels, one variable and one 2 minute decel to 125 bpm. No associated contractions. Will monitor for 30 more minutes to see if decels resolved, per Dr Mohamud. Vitals WNL. Feels like she's getting Suboxone too frequently, and feels tired much of the day. Skipped the 1100 dose. GENARO Jackson to follow up with pt and MD team to work on Suboxone plan. She has been on the phone a lot today, speaking with her mom and and trying to make plans. Stable, will continue to monitor. Plan of Care - Tarsha Vega RN - 12/10/2016 7:39 AM CDT Problem: PROM, PPROM, Prolonged Rupture of Membranes (Adult,Obstetrics,Pediatric) Goal: Signs and Symptoms of Listed Potential Problems Will be Absent, Minimized or Managed (PROM, PPROM, Prolonged Rupture of Membranes) Signs and symptoms of listed potential problems will be absent, minimized or managed by discharge/transition of care (reference PROM, PPROM, Prolonged Rupture of Membranes (Adult,Obstetrics,Pediatric) CPG). Outcome: Improving Pt stable, VS WDL. Pt took bath early in shift. Flexeril given for neck pain/tension. Pt able to sleep throughout shift. Denies feeling ctx. Leaking clear fluid, afebrile. FHR appropriate for gestational age. Provider Notification - Juanis Henson RN - 12/09/2016 11:31 PM CDT 12/09/16 2300 Provider Notification Provider Name/Title Dr. Walsh Method of Notification In Department Request Evaluate - Remote Notification Reason Pain Using ice pack for pain in her neck. States that she has a lot of tension in her neck. Dr. Walsh notified and will order one dose of Flexeril. Plan of Care - Juanis Henson RN - 12/09/2016 9:24 PM CDT Problem: PROM, PPROM, Prolonged Rupture of Membranes (Adult,Obstetrics,Pediatric) Goal: Signs and Symptoms of Listed Potential Problems Will be Absent, Minimized or Managed (PROM, PPROM, Prolonged Rupture of Membranes) Signs and symptoms of listed potential problems will be absent, minimized or managed by discharge/transition of care (reference PROM, PPROM, Prolonged Rupture of Membranes (Adult,Obstetrics,Pediatric) CPG). Outcome: No Change Stable. Continue present cares. Plan of Care - So Solano RN - 12/09/2016 2:50 PM CDT Problem: PROM, PPROM, Prolonged Rupture of Membranes (Adult,Obstetrics,Pediatric) Goal: Signs and Symptoms of Listed Potential Problems Will be Absent, Minimized or Managed (PROM, PPROM, Prolonged Rupture of Membranes) Signs and symptoms of listed potential problems will be absent, minimized or managed by discharge/transition of care (reference PROM, PPROM, Prolonged Rupture of Membranes (Adult,Obstetrics,Pediatric) CPG). Patient continues to leak clear fluid. Afebrile. Denies pain. Requests to see social service. Pt hasgone outside to smoke x2. Declines nicotine gum at this time. Plan of Care - Tarsha Vega RN - 12/09/2016 7:18 AM CDT Problem: PROM, PPROM, Prolonged Rupture of Membranes (Adult,Obstetrics,Pediatric) Goal: Signs and Symptoms of Listed Potential Problems Will be Absent, Minimized or Managed (PROM, PPROM, Prolonged Rupture of Membranes) Signs and symptoms of listed potential problems will be absent, minimized or managed by discharge/transition of care (reference PROM, PPROM, Prolonged Rupture of Membranes (Adult,Obstetrics,Pediatric) CPG). Outcome: Improving Pt stable, VS WDL. Afebrile. Pt states feeling some kylie toro contractions but denies increased intensity or frequency of ctx. No ctx per toco. FHR appropriate for gestational age. Plan of Care - Pola Trujillo RN - 12/08/2016 9:37 PM CDT Problem: PROM, PPROM, Prolonged Rupture of Membranes (Adult,Obstetrics,Pediatric) Goal: Signs and Symptoms of Listed Potential Problems Will be Absent, Minimized or Managed (PROM, PPROM, Prolonged Rupture of Membranes) Signs and symptoms of listed potential problems will be absent, minimized or managed by discharge/transition of care (reference PROM, PPROM, Prolonged Rupture of Membranes (Adult,Obstetrics,Pediatric) CPG). Pt oriented to new room in Antepartum. Pt has many appropriate questions. Continue latency antibiotics. Pt afebrile. Requests social work consult. Plan of Care - Aaliyah Muñiz RN - 12/08/2016 2:59 PM CDT Problem: PROM, PPROM, Prolonged Rupture of Membranes (Adult,Obstetrics,Pediatric) Goal: Signs and Symptoms of Listed Potential Problems Will be Absent, Minimized or Managed (PROM, PPROM, Prolonged Rupture of Membranes) Signs and symptoms of listed potential problems will be absent, minimized or managed by discharge/transition of care (reference PROM, PPROM, Prolonged Rupture of Membranes (Adult,Obstetrics,Pediatric) CPG). Data: Maternal status stable. Pt has had no contractions. MgSO4 stopped this morning. She is s/p beta x2. She received her flu shot today. assessment is appropriate for gestational age. BPP today6/8, 2 off for low fluid which measured 4.4 at that time. Growth in 37 percentile. Action: Continue with plan of care, which is IV and oral ABX, monitor TID, SL IV between med doses. Patient encouraged to move extremities while in bed. Response: Patient coping well with hospital admission. Plan of Care - Mecca Wilkes RN - 12/08/2016 6:36 AM CDT Problem: PROM, PPROM, Prolonged Rupture of Membranes (Adult,Obstetrics,Pediatric) Goal: Signs and Symptoms of Listed Potential Problems Will be Absent, Minimized or Managed (PROM, PPROM, Prolonged Rupture of Membranes) Signs and symptoms of listed potential problems will be absent, minimized or managed by discharge/transition of care (reference PROM, PPROM, Prolonged Rupture of Membranes (Adult,Obstetrics,Pediatric) CPG). Outcome: No Change Patient's VSS. Patient continues to be afebrile. Patient continues to leak a small amount of clear fluid. Denies feeling any contractions or abdominal pain at this time. Patient did have a small headache, and given tylenol with adequate relief. Mg continues at 2 gm/hr. Indocin and amoxicillin given. No concerns at this time. FHR appropriate for gestational age. Provider Notification - Mecca Wilkes RN - 12/08/2016 3:10 AM CDT 12/08/16 0309 Provider Notification Provider Name/Title Dr. Barker Method of Notification Electronic Page;In Department Notification Reason Pain;Patient Request Notified provider that patient is requesting something for sleep and is having some RUQ pain. Plan of Care - Ellie Harris RN - 12/07/2016 11:06 PM CDT Problem: Patient Care Overview Goal: Individualization & Mutuality Outcome: No Change No contractions noted this shift. Patient stated that she felt some contractions but again nothing noted after toco readjusted. FHT's 140's with moderate variability and some accelerations. Continues to lose clear amniotic fluid in small amounts. Denies bleeding. Afebrile and VSS. Tolerated Mag Sulfate loading dose. Currently Mag infusing at 50 gm /hr as ordered. Has stated a several times that she afraid of abrupting again. Offered reassurance and support. Pleasant and cooroperative. Stable condition. Plan of Care - La Nena Lozada RN - 12/07/2016 3:41 PM CDT Data: [facility]. Reason for maternal/ assessment per patient is water broke. Patient is a . record reviewed. Obstetric History T7 L5 SAB0 TAB0 Ectopic0 Multiple0 Live Births7 # Outcome Date GA Lbr Sherman/2nd Weight Sex Delivery Anes PTL Lv 9 Current 8 07/20/ 19w3d / 01:06 0.325 kg (11.5 oz) U Vag-Spont FD Apgar1: 0 Apgar5: 0 7 Term 2014 CS-LTranv NINA 6 Term 2009 CS-LTranv NINA 5 Term NINA 4 Term NINA 3 Term NINA 2 Term DEC 1 Term DEC . Medical history: Past Medical History: Diagnosis Date ??? Anxiety ??? Chronic hepatitis C (H) ??? Depressive disorder ??? Hypothyroid ??? Suboxone maintenance treatment complicating , antepartum (H) . Gestational Age 27w1d. VSS. movement present. Patient denies backache, pelvic pressure, UTI symptoms, GI problems, bloody show, vaginal bleeding, edema, headache, visual disturbances, epigastric or URQ pain, abdominal pain. Presents grossly ruptured (large pool of amniotic fluid on gurney from ambulance), complaining of intermittent cramping every 2-3 minutes on ambulance ride. Had spotting over the past week and lost her mucous plug. Action: Verbal consent for EFM. Triage assessment completed. EFM applied. Uterine assessment per toco. assessment: Presumed adequate oxygenation documented (see flow record). Response: Dr. Barker and Dr Leyva informed of patient arrival and history, gross ROM. SSE by MD, cervix appears closed. Plan per provider is admit, betamethasone, IV antibiotics, magnesium. Patient verbalized agreement with plan. Bedside report given to Ketty Harris RN at 1520. documented in this encounter Plan of Treatment Upcoming Encounters Date Type Specialty Care Team Description 11/15/2021 Office Visit Wound Care Luis Camara DPM [address] [place] [address] (Wo rk) Pending Results Name Type Priority Associated Date/Time Diagnoses Transfuse red blood Nursing Transfusion STAT 1 02/24/2016 8:10 cell unit PM COST ESTIMATOR Transfuse red blood Nursing Transfusion STAT 1 02/24/2016 8:15 cell unit PM COST ESTIMATOR Transfuse plasma unit Nursing Transfusion Routine 12/24/2016 8:48 PM COST ESTIMATOR Transfuse red blood Nursing Transfusion STAT 1 02/24/2016 8:42 cell unit PM COST ESTIMATOR Transfuse red blood Nursing Transfusion STAT 1 02/24/2016 9:30 cell unit PM COST ESTIMATOR Transfuse red blood Nursing Transfusion STAT 1 02/24/2016 8:59 cell unit PM COST ESTIMATOR Transfuse red blood Nursing Transfusion STAT 1 02/24/2016 8:58 cell unit PM COST ESTIMATOR Transfuse red blood Nursing Transfusion STAT 1 02/24/2016 8:47 cell unit PM COST ESTIMATOR Placenta path order and Lab Routine 08/2016 8:05 indications PM COST ESTIMATOR Transfuse platelets Nursing Transfusion Routine 1 02/24/2016 9:19 unit PM COST ESTIMATOR Transfuse red blood Nursing Transfusion STAT 1 02/24/2016 10:15 cell unit PM COST ESTIMATOR Transfuse red blood Nursing Transfusion STAT 1 02/24/2016 10:50 cell unit PM COST ESTIMATOR Transfuse red blood Nursing Transfusion STAT 1 02/24/2016 9:56 cell unit PM COST ESTIMATOR Cryoprecipitate prepare Blood Bank Routine Chronic hepatitis 12/24/2016 10:59 order unit C without hepatic PM COST ESTIMATOR coma (H) Transfuse Nursing Transfusion Routine 12/25/19 17 11:10 cryoprecipitate unit PM COST ESTIMATOR Scheduled Referrals Name Type Priority Associated Diagnoses Order S chedule GASTROENTEROLOGY ADULT REF Referral Routine Chronic hepati tis C Ordered: 12/26/2016 CONSULT ONLY without hepatic coma (H) DENTAL REFERRAL Referral Routine Dental caries Ordered: documented as of this encounter Procedures Procedure Name Priority Date/Time Associated Comments Diagnosis CBC WITH PLATELETS Routine 12/26/2016 8:10 Chronic hepatitis R esults for this AM COST ESTIMATOR C without hepatic procedure are in coma (H) the results section. CBC WITH PLATELETS Timed 12/25/2016 2:04 Chronic hepatitis R esults for this PM COST ESTIMATOR C without hepatic procedure are in coma (H) the results section. INR Timed 12/25/2016 7:00 Chronic hepatitis Results for this AM COST ESTIMATOR C without hepatic procedure are in coma (H) the results section. PARTIAL THROMBOPLASTIN Timed 12/25/2016 7:00 Chronic hepatit is Results for this TIME AM COST ESTIMATOR C without hepatic procedure are in coma (H) the results section. MAGNESIUM Timed 12/25/2016 7:00 Chronic hepatitis Results for this AM COST ESTIMATOR C without hepatic procedure are in coma (H) the results section. FIBRINOGEN ACTIVITY Timed 12/25/2016 7:00 Chronic hepatitis Results for this AM COST ESTIMATOR C without hepatic procedure are in coma (H) the results section. BASIC METABOLIC PANEL Timed 12/25/2016 7:00 Chronic hepatiti s Results for this AM COST ESTIMATOR C without hepatic procedure are in coma (H) the results section. CBC WITH PLATELETS Timed 12/25/2016 7:00 Chronic hepatitis R esults for this AM COST ESTIMATOR C without hepatic procedure are in coma (H) the results section. INR Routine 12/25/2016 12:54 Chronic hepatitis Result s for this AM COST ESTIMATOR C without hepatic procedure are in coma (H) the results section. PARTIAL THROMBOPLASTIN Routine 12/25/2016 12:54 Chronic hepati tis Results for this TIME AM COST ESTIMATOR C without hepatic procedure are in coma (H) the results section. FIBRINOGEN ACTIVITY Routine 12/25/2016 12:54 Chronic hepatitis Results for this AM COST ESTIMATOR C without hepatic procedure are in coma (H) the results section. BASIC METABOLIC PANEL Routine 12/25/2016 12:54 Chronic hepatit is Results for this AM COST ESTIMATOR C without hepatic procedure are in coma (H) the results section. CBC WITH PLATELETS Routine 12/25/2016 12:54 Chronic hepatitis Results for this AM COST ESTIMATOR C without hepatic procedure are in coma (H) the results section. XR ABDOMEN PORT 1 VIEW STAT 12/24/2016 11:10 R esults for this PM COST ESTIMATOR procedure are i n the results section. TRANSFUSE Routine 12/24/2016 11:10 CRYOPRECIPITATE UNIT PM COST ESTIMATOR BLOOD COMPONENT Routine 12/24/2016 10:59 Chronic hepatitis Res ults for this PM COST ESTIMATOR C without hepatic procedure are in coma (H) the results section. PREPARE CRYOPRECIPITATE Routine 12/24/2016 10:59 Chronic hepat itis (SINGLE UNIT) PM COST ESTIMATOR C without hepatic coma (H) TRANSFUSE RED BLOOD CELL STAT 12/24/2016 10:50 UNIT PM COST ESTIMATOR ARTERIAL PANEL Routine 12/24/2016 10:45 Chronic hepatitis Resu lts for this PM COST ESTIMATOR C without hepatic procedure are in coma (H) the results section. TRANSFUSE RED BLOOD CELL STAT 12/24/2016 10:15 UNIT PM COST ESTIMATOR SURGICAL PATHOLOGY EXAM Routine 12/24/2016 10:13 Results for this PM COST ESTIMATOR procedure are i n the results section. TRANSFUSE RED BLOOD CELL STAT 12/24/2016 9:56 UNIT PM COST ESTIMATOR ARTERIAL PANEL Routine 12/24/2016 9:50 Chronic hepatitis Resul ts for this PM COST ESTIMATOR C without hepatic procedure are in coma (H) the results section. INR Routine 12/24/2016 9:50 Chronic hepatitis Results for this PM COST ESTIMATOR C without hepatic procedure are in coma (H) the results section. PARTIAL THROMBOPLASTIN Routine 12/24/2016 9:50 Chronic hepatit is Results for this TIME PM COST ESTIMATOR C without hepatic procedure are in coma (H) the results section. FIBRINOGEN ACTIVITY Routine 12/24/2016 9:50 Chronic hepatitis Results for this PM COST ESTIMATOR C without hepatic procedure are in coma (H) the results section. CBC WITH PLATELETS Routine 12/24/2016 9:50 Chronic hepatitis R esults for this PM COST ESTIMATOR C without hepatic procedure are in coma (H) the results section. TRANSFUSE RED BLOOD CELL STAT 12/24/2016 9:30 UNIT PM COST ESTIMATOR ARTERIAL PANEL Routine 12/24/2016 9:20 Chronic hepatitis Resul ts for this PM COST ESTIMATOR C without hepatic procedure are in coma (H) the results section. TRANSFUSE PLATELETS UNIT Routine 12/24/2016 9:19 PM COST ESTIMATOR TRANSFUSE RED BLOOD CELL STAT 12/24/2016 8:59 UNIT PM COST ESTIMATOR TRANSFUSE RED BLOOD CELL STAT 12/24/2016 8:58 UNIT PM COST ESTIMATOR TRANSFUSE PLASMA UNIT Routine 12/24/2016 8:48 PM COST ESTIMATOR TRANSFUSE RED BLOOD CELL STAT 12/24/2016 8:47 UNIT PM COST ESTIMATOR BLOOD COMPONENT Routine 12/24/2016 8:45 Chronic hepatitis Resu lts for this PM COST ESTIMATOR C without hepatic procedure are in coma (H) the results section. BLOOD COMPONENT Routine 12/24/2016 8:45 Chronic hepatitis Resu lts for this PM COST ESTIMATOR C without hepatic procedure are in coma (H) the results section. PREPARE PLATELETS ORDER Routine 12/24/2016 8:45 Chronic hepati tis Results for this UNIT PM COST ESTIMATOR C without hepatic procedure are in coma (H) the results section. ARTERIAL PANEL Routine 12/24/2016 8:44 Chronic hepatitis Resul ts for this PM COST ESTIMATOR C without hepatic procedure are in coma (H) the results section. INR Routine 12/24/2016 8:44 Chronic hepatitis Results for this PM COST ESTIMATOR C without hepatic procedure are in coma (H) the results section. PARTIAL THROMBOPLASTIN Routine 12/24/2016 8:44 Chronic hepatit is Results for this TIME PM COST ESTIMATOR C without hepatic procedure are in coma (H) the results section. FIBRINOGEN ACTIVITY Routine 12/24/2016 8:44 Chronic hepatitis Results for this PM COST ESTIMATOR C without hepatic procedure are in coma (H) the results section. CBC WITH PLATELETS Routine 12/24/2016 8:44 Chronic hepatitis R esults for this PM COST ESTIMATOR C without hepatic procedure are in coma (H) the results section. TRANSFUSE RED BLOOD CELL STAT 12/24/2016 8:42 UNIT PM COST ESTIMATOR ARTERIAL PANEL Routine 12/24/2016 8:25 Chronic hepatitis Resul ts for this PM COST ESTIMATOR C without hepatic procedure are in coma (H) the results section. PLACENTA PATH ORDER AND Routine 12/24/2016 8:05 INDICATIONS PM COST ESTIMATOR BLOOD COMPONENT Routine 12/24/2016 7:25 Chronic hepatitis Resu lts for this PM COST ESTIMATOR C without hepatic procedure are in coma (H) the results section. BLOOD COMPONENT Routine 12/24/2016 7:25 Chronic hepatitis Resu lts for this PM COST ESTIMATOR C without hepatic procedure are in coma (H) the results section. BLOOD COMPONENT Routine 12/24/2016 7:25 Chronic hepatitis Resu lts for this PM COST ESTIMATOR C without hepatic procedure are in coma (H) the results section. BLOOD COMPONENT Routine 12/24/2016 7:25 Chronic hepatitis Resu lts for this PM COST ESTIMATOR C without hepatic procedure are in coma (H) the results section. BLOOD COMPONENT Routine 12/24/2016 7:25 Chronic hepatitis Resu lts for this PM COST ESTIMATOR C without hepatic procedure are in coma (H) the results section. BLOOD COMPONENT Routine 12/24/2016 7:25 Chronic hepatitis Resu lts for this PM COST ESTIMATOR C without hepatic procedure are in coma (H) the results section. BLOOD COMPONENT Routine 12/24/2016 7:25 Chronic hepatitis Resu lts for this PM COST ESTIMATOR C without hepatic procedure are in coma (H) the results section. BLOOD COMPONENT Routine 12/24/2016 7:25 Chronic hepatitis Resu lts for this PM COST ESTIMATOR C without hepatic procedure are in coma (H) the results section. PREPARE PLASMA (UNIT) Routine 12/24/2016 7:25 Chronic hepatiti s Results for this PM COST ESTIMATOR C without hepatic procedure are in coma (H) the results section. HYSTERECTOMY, FOLLOWING 12/24/2016 7:24 SECTION PM COST ESTIMATOR CBC WITH PLATELETS & STAT 12/24/2016 7:06 Chronic hepatitis Results for this DIFFERENTIAL PM COST ESTIMATOR C without hepatic procedure are in coma (H) the results section. ROUTINE UA WITH Routine 12/24/2016 7:50 Chronic hepatitis Resu lts for this MICROSCOPIC REFLEX TO AM COST ESTIMATOR C without hepatic p rocedure are in CULTURE coma (H) the results section. URINE CULTURE Routine 12/24/2016 7:50 Chronic hepatitis Result s for this AM COST ESTIMATOR C without hepatic procedure are in coma (H) the results section. WET PREPARATION Routine 12/23/2016 11:53 Chronic hepatitis Res ults for this PM COST ESTIMATOR C without hepatic procedure are in coma (H) the results section. MFM BPP SINGLE Routine 12/23/2016 8:37 Results fo r this AM COST ESTIMATOR procedure are i n the results section. BLOOD COMPONENT Routine 12/23/2016 6:54 Chronic hepatitis Resu lts for this AM COST ESTIMATOR C without hepatic procedure are in coma (H) the results section. BLOOD COMPONENT Routine 12/23/2016 6:54 Chronic hepatitis Resu lts for this AM COST ESTIMATOR C without hepatic procedure are in coma (H) the results section. BLOOD COMPONENT Routine 12/23/2016 6:54 Chronic hepatitis Resu lts for this AM COST ESTIMATOR C without hepatic procedure are in coma (H) the results section. BLOOD COMPONENT Routine 12/23/2016 6:54 Chronic hepatitis Resu lts for this AM COST ESTIMATOR C without hepatic procedure are in coma (H) the results section. BLOOD COMPONENT Routine 12/23/2016 6:54 Chronic hepatitis Resu lts for this AM COST ESTIMATOR C without hepatic procedure are in coma (H) the results section. BLOOD COMPONENT Routine 12/23/2016 6:54 Chronic hepatitis Resu lts for this AM COST ESTIMATOR C without hepatic procedure are in coma (H) the results section. BLOOD COMPONENT Routine 12/23/2016 6:54 Chronic hepatitis Resu lts for this AM COST ESTIMATOR C without hepatic procedure are in coma (H) the results section. BLOOD COMPONENT Routine 12/23/2016 6:54 Chronic hepatitis Resu lts for this AM COST ESTIMATOR C without hepatic procedure are in coma (H) the results section. BLOOD COMPONENT Routine 12/23/2016 6:54 Chronic hepatitis Resu lts for this AM COST ESTIMATOR C without hepatic procedure are in coma (H) the results section. BLOOD COMPONENT Routine 12/23/2016 6:54 Chronic hepatitis Resu lts for this AM COST ESTIMATOR C without hepatic procedure are in coma (H) the results section. BLOOD COMPONENT Routine 12/23/2016 6:54 Chronic hepatitis Resu lts for this AM COST ESTIMATOR C without hepatic procedure are in coma (H) the results section. BLOOD COMPONENT Routine 12/23/2016 6:54 Chronic hepatitis Resu lts for this AM COST ESTIMATOR C without hepatic procedure are in coma (H) the results section. ABO/RH TYPE AND SCREEN Routine 12/23/2016 6:54 Chronic hepatit is Results for this AM COST ESTIMATOR C without hepatic procedure are in coma (H) the results section. ABO/RH TYPE AND SCREEN Timed 12/20/2016 10:48 Chronic hepati tis Results for this AM CDT C without hepatic procedure are in coma (H) the results section. [facility] BPP SINGLE Routine 12/19/2016 8:46 Results fo r this AM CDT procedure are i n the results section. ABO/RH TYPE AND SCREEN Timed 12/17/2016 6:54 Chronic hepatit is Results for this AM CDT C without hepatic procedure are in coma (H) the results section. [facility] US OB LIMITED Routine 12/16/2016 9:24 Results for this SINGLE/MULTIPLE AM CDT procedure ar e in the results section. ABO/RH TYPE AND SCREEN Timed 12/14/2016 12:28 Chronic hepati tis Results for this AM CDT C without hepatic procedure are in coma (H) the results section. HEPATITIS B SURFACE Routine 12/13/2016 9:42 Chronic hepatitis Results for this ANTIBODY PM CDT C without hepatic procedure are in coma (H) the results section. HEPATITIS A ANTIBODY IGG Routine 12/13/2016 9:42 Chronic hepat itis Results for this PM CDT C without hepatic procedure are in coma (H) the results section. HEPATITIS B CORE Routine 12/13/2016 9:42 Chronic hepatitis Res ults for this ANTIBODY PM CDT C without hepatic procedure are in coma (H) the results section. MR Routine 12/13/2016 2:33 Results for this PM CDT procedure are i n the results section. [facility] US OB LIMITED Routine 12/12/2016 8:36 Results for this SINGLE/MULTIPLE AM CDT procedure ar e in the results section. ABO/RH TYPE AND SCREEN Timed 12/11/2016 9:05 Re sults for this AM CDT procedure are i n the results section. ECHO COMPLETE* Routine 12/10/2016 9:05 Resu lts for this AM CDT procedure are i n the results section. [facility] US COMPREHENSIVE Routine 12/08/2016 9:52 Resu lts for this SINGLE F/U AM CDT procedure are i n the results section. WOUND CULTURE AEROBIC Routine 12/07/2016 6:00 Res ults for this BACTERIAL PM CDT procedure are i n the results section. MRSA CULTURE Routine 12/07/2016 6:00 Results for this PM CDT procedure are i n the results section. RUBELLA ANTIBODY IGG Routine 12/07/2016 3:43 Resu lts for this PM CDT procedure are i n the results section. TSH WITH FREE T4 REFLEX Routine 12/07/2016 3:43 R esults for this PM CDT procedure are i n the results section. INR Routine 12/07/2016 3:43 Results for this PM CDT procedure are i n the results section. PARTIAL THROMBOPLASTIN Routine 12/07/2016 3:43 Re sults for this TIME PM CDT procedure are i n the results section. HEMOGLOBIN STAIN Routine 12/07/2016 3:43 Re sults for this KLEIHAUER PM CDT procedure are i n the results section. HEPATITIS C RNA, Routine 12/07/2016 3:43 Results for this QUANTITATIVE BY PCR PM CDT procedur e are in the results section. FIBRINOGEN ACTIVITY Routine 12/07/2016 3:43 Resul ts for this PM CDT procedure are i n the results section. COMPREHENSIVE METABOLIC Routine 12/07/2016 3:43 R esults for this PANEL PM CDT procedure are i n the results section. UA MACROSCOPIC WITH STAT 12/07/2016 2:55 Resul ts for this REFLEX TO MICRO AND PM CDT procedur e are in CULTURE the results section. DRUG ABUSE SCRN 7 UR STAT 12/07/2016 2:55 Resu lts for this (/) (RH, PM CDT pro cedure are in SH, UR) the results section. URINE CULTURE Routine 12/07/2016 2:55 Results for this PM CDT procedure are i n the results section. WET PREPARATION STAT 12/07/2016 2:54 Results f or this PM CDT procedure are i n the results section. NEISSERIA GONORRHOEAE Routine 12/07/2016 2:54 Res ults for this PCR PM CDT procedure are i n the results section. GROUP B STREP PCR Routine 12/07/2016 2:54 Results for this PM CDT procedure are i n the results section. CHLAMYDIA TRACHOMATIS Routine 12/07/2016 2:54 Res ults for this PCR PM CDT procedure are i n the results section. ABO/RH TYPE AND SCREEN STAT 12/07/2016 2:41 Re sults for this PM CDT procedure are i n the results section. CBC WITH PLATELETS STAT 12/07/2016 2:41 Result s for this PM CDT procedure are i n the results section. REFERRAL SENSITIVITY Routine 12/07/2016 1:27 Resu lts for this PM CDT procedure are i n the results section. documented in this encounter Results (ABNORMAL) CBC with platelets (12/26/2016 8:10 AM COST ESTIMATOR) [facility] gist Method Time Signature WBC 8.5 4.0 - 11.0 12/26/2016 [facility] 10e9/L 8:20 AM [facility] RBC Count 3.19 (L) 3.8 - 5.2 12/26/2016 [facility] 10e12/L 8:20 AM [facility] Hemoglobin 9.2 (L) 11.7 - 12/26/2016 [facility] 15.7 g/dL 8:20 AM [facility] Hematocrit 27.2 (L) 35.0 - 12/26/2016 [facility] 47.0 % 8:20 AM [facility] MCV 85 78 - 100 12/26/2016 [facility] fl 8:20 AM [facility] MCH 28.8 26.5 - 12/26/2016 [facility] 33.0 pg 8:20 AM [facility] MCHC 33.8 31.5 - 12/26/2016 [facility] 36.5 g/dL 8:20 AM [facility] RDW 14.7 10.0 - 12/26/2016 [facility] 15.0 % 8:20 AM [facility] Platelet Count 144 (L) 150 - 450 12/26/2016 [facility] 10e9/L 8:20 AM [facility] Specimen Anatomical Collection Method Collection Time Receive d Time (Source) Location / / Volume Laterality Blood specimen 12/26/2016 8:10 AM 017 8:12 (specimen) COST ESTIMATOR AM COST ESTIMATOR Kayla Davidson MD LAB - BLOOD ORDERABLES Performing Organization Address City/State/ZIP Code Phon e Number [facility] [address] [address] [facility] [place] CBC with platelets (12/25/2016 2:04 PM COST ESTIMATOR) Patholo gist Method Time Signature WBC 9.7 4.0 - 11.0 12/25/2016 [facility] 10e9/L 2:10 PM [facility] RBC Count 3.45 (L) 3.8 - 5.2 12/25/2016 [facility] 10e12/L 2:10 PM [facility] Hemoglobin 10.1 (L) 11.7 - 12/25/2016 [facility] 15.7 g/dL 2:10 PM [facility] Hematocrit 28.8 (L) 35.0 - 12/25/2016 [facility] 47.0 % 2:10 PM [facility] MCV 84 78 - 100 12/25/2016 [facility] fl 2:10 PM [facility] MCH 29.3 26.5 - 12/25/2016 [facility] 33.0 pg 2:10 PM [facility] MCHC 35.1 31.5 - 12/25/2016 [facility] 36.5 g/dL 2:10 PM [facility] RDW 14.4 10.0 - 12/25/2016 [facility] 15.0 % 2:10 PM [facility] Platelet Count 142 (L) 150 - 450 12/25/2016 [facility] 10e9/L 2:10 PM [facility] Specimen Anatomical Collection Method Collection Time Receive d Time (Source) Location / / Volume Laterality Blood specimen 12/25/2016 2:04 PM 017 2:08 (specimen) COST ESTIMATOR PM COST ESTIMATOR So Nunez MD LAB - BLOOD ORDERABLES Performing Organization Address City/State/ZIP Code Phon e Number [address] [address] [facility] [place]NORM[place] Magnesium (12/25/2016 7:00 AM COST ESTIMATOR) P athologist Signature Magnesium 1.5 (L) 1.6 - 2.3 12/25/2016 [facility] mg/dL 8:07 AM [facility] Specimen Anatomical Collection Method Collection Time Receive d Time (Source) Location / / Volume Laterality Blood specimen 12/25/2016 7:00 AM 017 7:06 (specimen) COST ESTIMATOR AM COST ESTIMATOR So Nunez MD LAB - BLOOD ORDERABLES Performing Organization Address City/State/ZIP Code Phon e Number [facility] [address] [place] [address] [facility] [place] ([place]NORMAL) Basic metabolic panel (12/25/2016 7:00 AM COST ESTIMATOR) [facility] Method Time Signature Sodium 139 133 - 144 12/25/2016 [facility] mmol/L 8:13 AM [facility] Potassium 3.8 3.4 - 5.3 12/25/2016 [facility] mmol/L 8:13 AM [facility] Chloride 108 94 - 109 12/25/2016 [facility] mmol/L 8:13 AM [facility] Carbon Dioxide 21 20 - 32 12/25/2016 [facility] mmol/L 8:13 AM [facility] Anion Gap 10 3 - 14 12/25/2016 [facility] mmol/L 8:13 AM [facility] Glucose 133 (H) 70 - 99 12/25/2016 [facility] mg/dL 8:13 AM [facility] Urea Nitrogen 5 (L) 7 - 30 12/25/2016 [facility] mg/dL 8:13 AM [facility] Creatinine 0.51 (L) 0.52 - 12/25/2016 [facility] 1.04 mg/dL 8:13 AM [facility] GFR Estimate >90 >60 12/25/2016 [facility] mL/min/1.7 8:[address] Comment: Non GFR Calc GFR Estimate If >90 >60 mL/min/1.7m2 12/25/2016 8:13 A M [facility] Black [facility] Comment: GFR Calc Calcium 7.6 (L) 8.5 - 10.1 mg/dL 12/25/2016 8:13 AM [facility] Specimen Anatomical Collection Method Collection Time Receive d Time (Source) Location / / Volume Laterality Blood specimen 12/25/2016 7:00 AM 017 7:07 (specimen) COST ESTIMATOR AM COST ESTIMATOR Petrona Barone DO LAB - BLOOD ORDERABLES Performing Organization Address City/State/ZIP Code Phon e Number [address] [address] [facility] [place] Fibrinogen activity (12/25/2016 7:00 AM COST ESTIMATOR) P athologist Signature Fibrinogen 398 200 - 420 12/25/2016 [facility] mg/dL 7:58 AM [facility] Specimen Anatomical Collection Method Collection Time Receive d Time (Source) Location / / Volume Laterality Blood specimen 12/25/2016 7:00 AM 017 7:07 (specimen) COST ESTIMATOR AM COST ESTIMATOR Petrona Barone DO LAB - BLOOD ORDERABLES Performing Organization Address City/State/ZIP Code Phon e Number [address] [address] [facility] [place] Partial thromboplastin time (12/25/2016 7:00 AM COST ESTIMATOR) P athologist Signature PTT 28 22 - 37 sec 12/25/2016 [facility] 7:58 AM [facility] Specimen Anatomical Collection Method Collection Time Receive d Time (Source) Location / / Volume Laterality Blood specimen 12/25/2016 7:00 AM 017 7:07 (specimen) COST ESTIMATOR AM COST ESTIMATOR Petrona Barone DO LAB - BLOOD ORDERABLES Performing Organization Address City/State/ZIP Code Phon e Number [address] [address] [facility] [place] INR (12/25/2016 7:00 AM COST ESTIMATOR) P athologist Signature INR 1.06 0.86 - 1.14 12/25/2016 [facility] 7:58 AM [facility] Specimen Anatomical Collection Method Collection Time Receive d Time (Source) Location / / Volume Laterality Blood specimen 12/25/2016 7:00 AM 017 7:07 (specimen) COST ESTIMATOR AM COST ESTIMATOR Petrona Barone DO LAB - BLOOD ORDERABLES Performing Organization Address City/State/ZIP Code Phon e Number [address] [address] [facility] [place] (ABNORMAL) CBC with platelets (12/25/2016 7:00 AM COST ESTIMATOR) Patholo gist Method Time Signature WBC 12.7 (H) 4.0 - 11.0 12/25/2016 [facility] 10e9/L 7:51 AM [facility] RBC Count 4.05 3.8 - 5.2 12/25/2016 [facility] 10e12/L 7:51 AM [facility] Hemoglobin 11.5 (L) 11.7 - 12/25/2016 [facility] 15.7 g/dL 7:51 AM [facility] Hematocrit 33.8 (L) 35.0 - 12/25/2016 [facility] 47.0 % 7:51 AM [facility] MCV 84 78 - 100 12/25/2016 [facility] fl 7:51 AM [facility] MCH 28.4 26.5 - 12/25/2016 [facility] 33.0 pg 7:51 AM [facility] MCHC 34.0 31.5 - 12/25/2016 [facility] 36.5 g/dL 7:51 AM [facility] RDW 14.0 10.0 - 12/25/2016 [facility] 15.0 % 7:51 AM [facility] Platelet Count 160 150 - 450 12/25/2016 [facility] 10e9/L 7:51 AM [facility] Specimen Anatomical Collection Method Collection Time Receive d Time (Source) Location / / Volume Laterality Blood specimen 12/25/2016 7:00 AM 017 7:07 (specimen) COST ESTIMATOR AM COST ESTIMATOR Petrona Barone DO LAB - BLOOD ORDERABLES Performing Organization Address City/[facility] Phon e Number [address] Partial thromboplastin time (12/25/2016 12:54 AM COST ESTIMATOR) P athologist Signature PTT 28 22 - 37 sec 12/25/2016 [facility] 1:52 AM [facility] Specimen Anatomical Collection Method Collection Time Receive d Time (Source) Location / / Volume Laterality Blood specimen 12/25/2016 12:54 7 1:10 (specimen) AM COST ESTIMATOR AM COST ESTIMATOR Nora Torres MD LAB - BLOOD ORDERABLES Performing Organization Address City/[facility] Phon e Number [place] [phone] [facility] INR (12/25/2016 12:54 AM COST ESTIMATOR) P athologist Signature INR 1.11 0.86 - 1.14 12/25/2016 [facility] 1:52 AM [facility] Specimen Anatomical Collection Method Collection Time Receive d Time (Source) Location / / Volume Laterality Blood specimen 12/25/2016 12:54 7 1:10 (specimen) AM COST ESTIMATOR AM COST ESTIMATOR Nora Torres MD LAB - BLOOD ORDERABLES Performing Organization Address City/State/[facility] Code Phon e Number [address] [address] [facility] Fibrinogen activity (12/25/2016 12:54 AM COST ESTIMATOR) athologist Signature Fibrinogen 338 200 - 420 12/25/2016 [facility] mg/dL 1:52 AM [facility] Specimen Anatomical Collection Method Collection Time Receive d Time (Source) Location / / Volume Laterality Blood specimen 12/25/2016 12:54 7 1:10 (specimen) AM COST ESTIMATOR AM COST ESTIMATOR Nora Torres MD LAB - BLOOD ORDERABLES Performing Organization Address City/[facility]/ZIP Code Phon e Number [place] [phone] [facility] (ABNORMAL) CBC with platelets (12/25/2016 12:54 AM COST ESTIMATOR) Analysis Performed At Patho logist Time Signature WBC 11.0 4.0 - 11.0 12/25/2016 [facility] 10e9/L 1:42 AM [facility] RBC Count 4.22 3.8 - 5.2 12/25/2016 [facility] 10e12/L 1:42 AM [facility] Hemoglobin 12.2 11.7 - 12/25/2016 [facility] 15.7 g/dL 1:42 AM [facility] Hematocrit 35.9 35.0 - 12/25/2016 [facility] 47.0 % 1:42 AM [facility] MCV 85 78 - 100 12/25/2016 [facility] fl 1:42 AM [facility] MCH 28.9 26.5 - 12/25/2016 [facility] 33.0 pg 1:42 AM [facility] MCHC 34.0 31.5 - 12/25/2016 [facility] 36.5 g/dL 1:42 AM [facility] RDW 13.6 10.0 - 12/25/2016 [facility] 15.0 % 1:42 AM [facility] Platelet Count 149 (L) 150 - 450 12/25/2016 [facility] 10e9/L 1:42 AM [facility] Specimen Anatomical Collection Method Collection Time Receive d Time (Source) Location / / Volume Laterality Blood specimen 12/25/2016 12:54 7 1:10 (specimen) AM COST ESTIMATOR AM COST ESTIMATOR Nora Torres MD LAB - BLOOD ORDERABLES Performing Organization Address City/State/ZIP Code Phon e Number [facility] [address] [place] [address] [facility] (ABNORMAL) Basic metabolic panel (12/25/2016 12:54 AM COST ESTIMATOR) Analysis Performed At Patho logist Time Signature Sodium 142 133 - 144 12/25/2016 [facility] mmol/L 1:49 AM [facility] Potassium 4.0 3.4 - 5.3 12/25/2016 [facility] mmol/L 1:49 AM [facility] Chloride 113 (H) 94 - 109 12/25/2016 [facility] mmol/L 1:49 AM [facility] Carbon Dioxide 22 20 - 32 12/25/2016 [facility] mmol/L 1:49 AM [facility] Anion Gap 7 3 - 14 12/25/2016 [facility] mmol/L 1:49 AM [facility] Glucose 147 (H) 70 - 99 12/25/2016 [facility] mg/dL 1:49 AM [facility] Urea Nitrogen 6 (L) 7 - 30 12/25/2016 [facility] mg/dL 1:49 AM [facility] Creatinine 0.54 0.52 - 12/25/2016 [facility] 1.04 mg/dL 1:49 AM [facility] GFR Estimate >90 >60 12/25/2016 [facility] mL/min/1.7 1:[address] Comment: Non GFR Calc GFR Estimate If >90 >60 mL/min/1.7m2 12/25/2016 1:49 A M [facility] Black [facility] Comment: GFR Calc Calcium 8.0 (L) 8.5 - 10.1 mg/dL 12/25/2016 1:[address] [facility] Specimen Anatomical Collection Method Collection Time Receive d Time (Source) Location / / Volume Laterality Blood specimen 12/25/2016 12:54 7 1:10 (specimen) AM COST ESTIMATOR AM COST ESTIMATOR Nora Torres MD LAB - BLOOD ORDERABLES Performing Organization Address City/State/ZIP Code Phon e Number [facility] [address] [place] [address] [facility] XR Abdomen Port 1 View (12/24/2016 11:10 PM COST ESTIMATOR) Anatomical Region Laterality Modality Abdomen/Pelvis Computed Radiography Specimen (Source) Anatomical Location Collection Method / Collectio n Time Received Time / Laterality Volume Impressions 12/24/2016 11:52 PM COST ESTIMATOR IMPRESSION: No radiopaque foreign objects are present in the visualized portion of the abdomen and pe lvis. CHEIKH COURTNEY MD Narrative 12/24/2016 11:52 PM COST ESTIMATOR ABDOMEN SINGLE VIEW ??12/24/2016 11:10 PM HISTORY: Emergency section. Gely luate for foreign body. COMPARISON: None. Procedure Note Cheikh Courtney MD - 12/24/2016Fo rmatting of this note might be different from the original. ABDOMEN SINGLE VIEW 12/24/2016 11:10 PM HISTORY: Emergency section. Gely luate for foreign body. COMPARISON: None. IMPRESSION: No radiopaque foreign object s are present in the visualized portion of the abdomen and pe lvis. CHEIKH COURTNEY MD Petrona Barone DO IMG DIAGNOSTIC IMAGING ORDER JEFFERY Blood component (12/24/2016 10:59 PM COST ESTIMATOR) Component Value Ref Test Analysis Performed At [facility]ist Range Method Time Signature Unit Number [id number] 12/24/2016 [facility] 11:06 PM [facility] Blood 5 cryoprecipitate 12/24/2016 [facility] Component units pooled 11:06 PM [place] MEDICAL Type [facility] Division 00 12/24/2016 [facility] Number 11:06 PM [facility] Status of Released to care 12/24/2016 [facility] F Unit unit 11:58 PM [facility] Blood [id number] 12/24/2016 [facility] Product Code 11:06 PM [facility] Unit Status ISS [facility] Specimen Anatomical Collection Method Collection Time Receive d Time (Source) Location / / Volume Laterality 12/24/2016 10:59 12/24/2016 PM COST ESTIMATOR 11:04 PM COST ESTIMATOR Nora Leyva MD LABORATORY Performing Organization Address City/State/ZIP Code Phon e Number [facility] [address] [place] [address] [facility] [address] [place] [address] [facility] (ABNORMAL) Arterial Panel (12/24/2016 10:45 PM COST ESTIMATOR) [facility] gist Method Time Signature pH Arterial 7.35 7.35 - 12/24/2016 [facility] 7.45 pH 10:57 PM [facility] pCO2 Arterial 36 35 - 45 mm 12/24/2016 [place] [facility] Hg 10:57 PM [facility] pO2 Arterial 207 (H) 80 - 105 12/24/2016 [facility] mm Hg 10:57 PM [facility] Bicarbonate 20 (L) 21 - 28 12/24/2016 [facility] Arterial mmol/L 10:57 PM [facility] Base Deficit Art 4.9 mmol/L 12/24/2016 [facility] F 10:57 PM [facility] Comment: Reference range: -9.0 to 1.8 FIO2 50 12/24/2016 10:50 PM [facility] Sodium 135 133 - 144 12/24/2016 10:57 PM [facility] mmol/L [facility] Potassium 4.0 3.4 - 5.3 12/24/2016 10:57 PM [facility] mmol/L [facility] Hemoglobin 10.1 (L) 11.7 - 15.7 12/24/2016 10:57 PM [facility] [place] g/dL [facility] Glucose 161 (H) 70 - 99 mg/dL 12/24/2016 10:57 PM [facility] Calcium Ionized 5.1 4.4 - 5.2 12/24/2016 10:57 PM [facility] [place] Whole Blood mg/dL COST ESTIMATOR [facility] Specimen Anatomical Collection Method Collection Time Receive d Time (Source) Location / / Volume Laterality 12/24/2016 10:45 12/24/2016 PM COST ESTIMATOR 10:49 PM COST ESTIMATOR Nora Leyva MD LAB - BLOOD ORDERABLES Performing Organization Address City/State/ZIP Code Phon e Number [facility] [address] [place] [address] [facility] Surgical pathology exam (12/24/2016 10:13 PM COST ESTIMATOR) Component Value Ref Test Analysis Performed Pathologis t Range Method Time At [facility] Copath Patient Name: DEANN KING Report MR#: [id number] Specimen #: [id number] Collected: 12/24/2016 Received: 12/25/2016 Reported: 12/31/2016 10:03 Ordering Phy(s): SO NUNEZ For improved result formatting, select 'View Enhanced Report Format' under Linked Documents section. SPECIMEN(S): A: Uterus and cervix B: Fallopian tube, right C: Fallopian tube, left D: Placenta, 39 weeks 4 days FINAL DIAGNOSIS: ? A. ? Uterus and cervix, total hysterectomy: ? - hysterectomy with abnormal implantation site (see microscopic description) B. ? Fallopian tube, right, salpingectomy: ? - no diagnostic abnormality C. ? Fallopian tube, left, salpingectomy: ? - no diagnostic abnormality D. ? Placenta, delivery at 29-4/7 weeks' gestat ion: ? - placental weight, 320 g (269 g expected); -harinder cental weight ratio, 3.7:1 (5.2:1 expected) ? - umbilical cord, 7 cm long, three vessels, acute umb ilical vein funisitis ? - membranes, acute chorioamnionitis ? - villi, third trimester I have personally reviewed all specimens and/or slides, incl uding the listed special stains, and used them with my medical judgeme nt to determine or confirm the final diagnosis. Electronically signed out by: Moshe Isaac M.D., Physicians CLINICAL HISTORY: 36-year-old admitted at 27-1/7 weeks' gestation with PPROM in the setting of placenta previa and possible accreta. Cesarea n hysterectomy with bilateral salpingectomy at 29-4/7 weeks' g estation. weight 1180 g, Apgars 8/9, scant clear amniotic fluid. GROSS: A: The specimen is received in formalin with proper patient identification, labeled uterus and cervix. The specimen co nsists of a 615 g uterus without attached fallopian tubes or ovaries. Th e uterus measures 18.0 cm fundus to cervix, 8.0 cm anterior to lumber loader ior, and 9.5 cm cornu to cornu. The serosa of the uterus is washington with a lo osely sutured vertical incision on the anterior aspect from fundus to lower uterine segment. There is a firm area at the inferior border of this incision, which may represent an area of scar tissue. The ce rvix is not effaced. Opening reveals that the left endocervical mucosa a nd part of its underlying stroma are focally undermined for a distance of 1.1 cm by what appears to be an irregular continuation of the uterine cavity. The lower uterine segment is widened and has a circumference of 8.0 cm. There is a transmural defect in the right lower uterine segm ent that measures 2.0 x 2.5 cm. The endometrium is irregular-shaped. No masses are identified. Tunnel Elastic Operator Chainstitch sections are submitted. Summary of Sections: A1 - left lower uterine segment defect; right lower uterine segment defect A2 - right side of endocervical canal A3 - right ectocervix A4 - area of undermined left endocervical mucosa, superficia l aspect A5 - area of undermined left endocervical mucosa, deep aspec t A6 - area of undermined left endocervical mucosa, distal asp ect A7 - left ectocervix A8 - posterior section of lower uterine segment A9 - anterior section of lower uterine segment with posterio r aspect inked black A10 - anterior lower uterine segment myometrium A11 - possible scar tissue A12 - left lower endocervix A13 - lower posterior endocervix A14 - upper left myometrium A15 - right lower myometrium A16 - right mid-body myometrium to include serosal surface B: The specimen is received in formalin with the proper jessica ent identification, labeled right fallopian tube. The specimen consists of a tubular segment of purple-washington soft tissue with fimbriated ends consistent with a fallopian tube measuring 6.5 cm in length and ranging from 0.5-1.5 cm in diameter. The specimen is serially sectio ryan to reveal a grossly complete cross section of fallopian tube wi th a pin-point lumen. Tunnel Elastic Operator Chainstitch sections are submitted in ca ssette B1. C: The specimen is received in formalin with the proper jessica ent identification, labeled left fallopian tube. The specimen consists of a tubular segment of purple-washington soft tissue with fimbriated ends consistent with a fallopian tube measuring 5.5 cm in length and ranging from 0.8-1.5 cm in diameter. The specimen is serially sectio ryan to reveal a grossly complete cross section of fallopian tube wi th a pin-point lumen. Tunnel Elastic Operator Chainstitch sections are submitted in ca ssette C1. D: Received in formalin and labeled Placenta is a placenta with attached membranes and umbilical cord. The membranes are washington, semi-transparent, and incomplete, and the site of rupture cannot be identified. The membrane insertion is yo inal. The three-vessel flattened umbilical cord measures 7.0 cm in sherman gth and 1.8 x 0.6 cm in cross-sectional surface area and inserts eccentr ically, 5.0 cm from the nearest placental margin. The external surface a nd cut surface of the cord are washington-white with no gross lesions. The chorionic plate vessels are small-caliber with a dispersed configurati on. Subchorionic fibrin is minimal. The placental disc is ovoid and blue-leigh and measures 18.0 x 13.5 x 0.8-1.5 cm with a sergio ed weight of 320 g. There is focal thinning of the disc along the periphe ry. The maternal surface is complete, with no grossly obvious missin g cotyledons and a ragged area along the periphery. The parenchyma is pin k-washington and firm with a washington white possible thrombus along the periphery measuring 2.0 x 2.0 x 1.2 cm. Tunnel Elastic Operator Chainstitch sections are submitted as follows: Summary of Sections: D1 - membrane roll; end of umbilical cord D2 - placental end of umbilical cord D3-D4 - non-marginal sections D5 - basal plate sections D6 - possible thrombus at margin D7 - thin area along the periphery (Dictated by: Antonella tao 12/26/2016 03:59 PM) MICROSCOPIC: The uterus and cervix show -induced changes. Sectio ns submitted as area of undermined left cervical mucosa (A4-A6) show an abnormal implantation site with minimal to absent decidua that extend s into the endocervical stroma, with a small amount of retained placent al tissue. Similar abnormal implantation site changes are also identifi ed in the posterior lower uterine segment (A8), although there the dec idua is somewhat better developed. Immunohistochemical stains for cy tokeratin (AE1/AE3) and vimentin are performed on blocks A6 and A8, wi th appropriate controls, and highlight intermediate trophoblast ic cells and decidual stromal cells, respectively. The section submitted as possible scar tissue (A11) shows myometrium with -induced c hanges and without fibrosis. The fallopian tubes show no diagnostic varinder nges. The three-vessel umbilical cord shows focal acute inflammati on within and surrounding the umbilical vein. The membrane roll is ful l-thickness and shows acute inflammation within the chorion and amnion. Villous maturation is compatible with third-trimester gestation. The re is no villitis. The section submitted as possible thrombus at [facility] shows a remote retroplacental hematoma. CPT Codes: A: 84503-HX5, 74760-JVH, 74348-SGK B: 70141-IQ3 C: 86014-CT9 D: 41712-ZQ2 TESTING LAB LOCATION: [facility], [address] [place] [id number] COLLECTION SITE: Client: [facility] Specimen (Source) Anatomical Collection Method Collection Time Re ceived Time Location / / Volume Laterality Tissue specimen UTERUS AND CERVIX, 12/24/2016 10:13 (specimen) CS / Unknown PM COST ESTIMATOR Tissue specimen STRUCTURE OF RIGHT 12/24/2016 10:14 (specimen) FALLOPIAN TUBE / PM COST ESTIMATOR Unknown Tissue specimen STRUCTURE OF LEFT 12/24/2016 10:14 (specimen) FALLOPIAN TUBE / PM COST ESTIMATOR Unknown [facility] Performing Organization Address City/State/ZIP Code Phon e Number [facility] Partial thromboplastin time (12/24/2016 9:50 PM COST ESTIMATOR) P athologist Signature PTT 33 22 - 37 sec 12/24/2016 [facility] 10:05 PM [facility] Specimen Anatomical Collection Method Collection Time Receive d Time (Source) Location / / Volume Laterality 12/24/2016 9:50 PM 7 9:52 COST ESTIMATOR PM COST ESTIMATOR Nora Leyva MD LAB - BLOOD ORDERABLES Performing Organization Address City/[facility]/ZIP Code Phon e Number [address] [address] [facility] (ABNORMAL) INR (12/24/2016 9:50 PM COST ESTIMATOR) P athologist Signature INR 1.50 (H) 0.86 - 1.14 12/24/2016 [facility] 10:05 PM COST ESTIMATOR [facility] Specimen Anatomical Collection Method Collection Time Receive d Time (Source) Location / / Volume Laterality 12/24/2016 9:50 PM 7 9:52 COST ESTIMATOR PM COST ESTIMATOR Nora Leyva MD LAB - BLOOD ORDERABLES Performing Organization Address City/[facility]/ZIP Code Phon e Number [address] [address] [facility] (ABNORMAL) Fibrinogen activity (12/24/2016 9:50 PM COST ESTIMATOR) P athologist Signature Fibrinogen 189 (L) 200 - 420 12/24/2016 [facility] mg/dL 10:05 PM [facility] Specimen Anatomical Collection Method Collection Time Receive d Time (Source) Location / / Volume Laterality 12/24/2016 9:50 PM 7 9:52 COST ESTIMATOR PM COST ESTIMATOR Nora Leyva MD LAB - BLOOD ORDERABLES Performing Organization Address City/[facility]/ZIP Code Phon e Number [address] [address] [facility] (ABNORMAL) CBC with platelets (12/24/2016 9:50 PM COST ESTIMATOR) Patholo gist Method Time Signature WBC 10.3 4.0 - 11.0 12/24/2016 [facility] 10e9/L 9:58 PM [facility] RBC Count 2.61 (L) 3.8 - 5.2 12/24/2016 [facility] 10e12/L 9:58 PM [facility] Hemoglobin 7.5 (L) 11.7 - 12/24/2016 [facility] 15.7 g/dL 9:58 PM COST ESTIMATOR [facility] Hematocrit 23.1 (L) 35.0 - 12/24/2016 [facility] 47.0 % 9:58 PM [facility] MCV 89 78 - 100 12/24/2016 [facility] fl 9:58 PM [facility] MCH 28.7 26.5 - 12/24/2016 [facility] 33.0 pg 9:58 PM [facility] MCHC 32.5 31.5 - 12/24/2016 [facility] 36.5 g/dL 9:58 PM [facility] RDW 14.5 10.0 - 12/24/2016 [facility] 15.0 % 9:58 PM [facility] Platelet Count 105 (L) 150 - 450 12/24/2016 [facility] 10e9/L 9:58 PM [facility] Specimen Anatomical Collection Method Collection Time Receive d Time (Source) Location / / Volume Laterality 12/24/2016 9:50 PM 7 9:52 COST ESTIMATOR PM COST ESTIMATOR Nora Leyva MD LAB - BLOOD ORDERABLES Performing Organization Address City/State/ZIP Code Phon e Number [facility] [address] [place] [address] [facility] (ABNORMAL) Arterial Panel (12/24/2016 9:50 PM COST ESTIMATOR) [facility] gist Method Time Signature pH Arterial 7.31 (L) 7.35 - 12/24/2016 [facility] 7.45 pH 9:58 PM [facility] pCO2 Arterial 38 35 - 45 12/24/2016 [place] [facility] mm Hg 9:58 PM [facility] pO2 Arterial 197 (H) 80 - 105 12/24/2016 [facility] mm Hg 9:58 PM [facility] Bicarbonate 19 (L) 21 - 28 12/24/2016 [facility] Arterial mmol/L 9:58 PM [facility] Base Deficit Art 6.8 mmol/L 12/24/2016 [facility] F 9:58 PM [facility] Comment: Reference range: -9.0 to 1.8 FIO2 50 12/24/2016 9:54 PM [facility] Sodium 137 133 - 144 12/24/2016 9:58 PM [facility] mmol/L [facility] Potassium 3.7 3.4 - 5.3 12/24/2016 9:58 PM [facility] mmol/L [facility] Hemoglobin 7.5 (L) 11.7 - 15.7 12/24/2016 9:58 PM [place] g/dL [facility] Glucose 155 (H) 70 - 99 mg/dL 12/24/2016 9:58 PM [facility] Calcium Ionized 4.6 4.4 - 5.2 12/24/2016 9:58 PM [facility] [place] Whole Blood mg/dL [facility] Specimen Anatomical Collection Method Collection Time Receive d Time (Source) Location / / Volume Laterality 12/24/2016 9:50 PM 7 9:52 COST ESTIMATOR PM COST ESTIMATOR Nora Leyva MD LAB - BLOOD ORDERABLES Performing Organization Address City/State/ZIP Code Phon e Number [facility] [address] [place] [address] [facility] (ABNORMAL) Arterial Panel (12/24/2016 9:20 PM COST ESTIMATOR) [facility] gist Method Time Signature pH Arterial 7.31 (L) 7.35 - 12/24/2016 [facility] 7.45 pH 9:28 PM [facility] pCO2 Arterial 40 35 - 45 12/24/2016 [facility] mm Hg 9:28 PM [facility] pO2 Arterial 191 (H) 80 - 105 12/24/2016 [facility] mm Hg 9:28 PM [facility] Bicarbonate 20 (L) 21 - 28 12/24/2016 [facility] Arterial mmol/L 9:28 PM [facility] Base Deficit Art 5.8 mmol/L 12/24/2016 [facility] F 9:28 PM [facility] Comment: Reference range: -9.0 to 1.8 FIO2 50% 12/24/2016 9:26 PM [facility] Sodium 136 133 - 144 12/24/2016 9:28 PM [facility] mmol/L [facility] Potassium 3.9 3.4 - 5.3 12/24/2016 9:28 PM [facility] mmol/L [facility] Hemoglobin 8.7 (L) 11.7 - 15.7 12/24/2016 9:28 PM [facility] [place] g/dL [facility] Glucose 165 (H) 70 - 99 mg/dL 12/24/2016 9:28 PM [facility] Calcium Ionized 4.4 4.4 - 5.2 12/24/2016 9:28 PM [facility] [place] Whole Blood mg/dL [facility] Specimen Anatomical Collection Method Collection Time Receive d Time (Source) Location / / Volume Laterality 12/24/2016 9:20 PM 7 9:25 COST ESTIMATOR PM COST ESTIMATOR Nora Leyva MD LAB - BLOOD ORDERABLES Performing Organization Address City/[facility]/ZIP Code Phon e Number [address] [address] [facility] Blood component (12/24/2016 8:45 PM COST ESTIMATOR) [facility] Fios Method Time Signature Unit Number [id number] 12/24/2016 [facility] 7 10:07 PM [facility] Blood PlateletPher 12/24/2016 [facility] Component esis,LeukoRe 10:07 PM [facility] Type d Irrad [facility] Division 00 12/24/2016 [facility] Number 10:07 PM [facility] Status of Released to 12/24/2016 [facility] Unit care unit 11:58 PM [facility] Blood Product [id number] 12/24/2016 [facility] Code 10:07 PM [facility] B[facility] Unit Status ISS [facility] Specimen Anatomical Collection Method Collection Time Receive d Time (Source) Location / / Volume Laterality 12/24/2016 8:45 PM 7 8:50 COST ESTIMATOR PM COST ESTIMATOR Nora Leyva MD LABORATORY Performing Organization Address City/State/ZIP Code Phon e Number [facility] [address] [place] [address] [address] [facility] Blood component (12/24/2016 8:45 PM COST ESTIMATOR) [facility] Fios Method Time Signature Unit Number [id number] 12/24/2016 [facility] 2 8:52 PM [facility] BANK Blood PlateletPher 12/24/2016 [facility] Component esis,LeukoRe 8:52 PM COST ESTIMATOR [facility] Type d Irrad CENTER WEST (Part 2) BANK Division 00 12/24/2016 [facility] Number 8:52 PM [facility] B[facility] Status of Released to 12/24/2016 [facility] Unit care unit 11:58 PM [facility] Blood Product [id number] 12/24/2016 [facility] Code 8:52 PM COST ESTIMATOR [facility] BANK Unit Status ISS [facility] Specimen Anatomical Collection Method Collection Time Receive d Time (Source) Location / / Volume Laterality 12/24/2016 8:45 PM 7 8:50 COST ESTIMATOR PM COST ESTIMATOR Nora Leyva MD LABORATORY Performing Organization Address City/State/ZIP Code Phon e Number [address] [address] [facility] Platelets prepare order unit (12/24/2016 8:45 PM COST ESTIMATOR) Patholo gist Method Time Signature Blood PLT Pheresis 12/24/[address] [facility] 8:50 PM [facility] WEST [facility] Units Ordered 2 12/24/2016 [facility] 10:07 PM [facility] Specimen Anatomical Collection Method Collection Time Receive d Time (Source) Location / / Volume Laterality 12/24/2016 8:45 PM 7 8:50 COST ESTIMATOR PM COST ESTIMATOR Nora Leyva MD BLOOD BANK PRODUCT ORDERABLE S Performing Organization Address City/State/ZIP Code Phon e Number [address] [address] [facility] Partial thromboplastin time (12/24/2016 8:44 PM COST ESTIMATOR) P athologist Signature PTT 30 22 - 37 sec 12/24/2016 [facility] 9:05 PM [facility] Specimen Anatomical Collection Method Collection Time Receive d Time (Source) Location / / Volume Laterality 12/24/2016 8:44 PM 7 8:51 COST ESTIMATOR PM COST ESTIMATOR Nora Leyva MD LAB - BLOOD ORDERABLES Performing Organization Address City/State/ZIP Code Phon e Number [address] [address] [facility] (ABNORMAL) INR (12/24/2016 8:44 PM COST ESTIMATOR) P athologist Signature INR 1.16 (H) 0.86 - 1.14 12/24/2016 [facility] 9:05 PM [facility] Specimen Anatomical Collection Method Collection Time Receive d Time (Source) Location / / Volume Laterality 12/24/2016 8:44 PM 7 8:51 COST ESTIMATOR PM COST ESTIMATOR Nora Leyva MD LAB - BLOOD ORDERABLES Performing Organization Address City/State/ZIP Code Phon e Number [place] [phone] [facility] Fibrinogen activity (12/24/2016 8:44 PM COST ESTIMATOR) athologist Signature Fibrinogen 328 200 - 420 12/24/2016 [facility] mg/dL 9:05 PM [facility] Specimen Anatomical Collection Method Collection Time Receive d Time (Source) Location / / Volume Laterality 12/24/2016 8:44 PM 7 8:51 COST ESTIMATOR PM COST ESTIMATOR Nora Leyva MD LAB - BLOOD ORDERABLES Performing Organization Address City/State/ZIP Code Phon e Number [address] (ABNORMAL) CBC with platelets (12/24/2016 8:44 PM COST ESTIMATOR) [facility] gist Method Time Signature WBC 5.8 4.0 - 11.0 12/24/2016 [facility] 10e9/L 9:16 PM [facility] RBC Count 2.70 (L) 3.8 - 5.2 12/24/2016 [facility] 10e12/L 9:16 PM [facility] Hemoglobin 7.7 (L) 11.7 - 12/24/2016 [facility] 15.7 g/dL 9:16 PM [facility] Hematocrit 24.0 (L) 35.0 - 12/24/2016 [facility] 47.0 % 9:16 PM [facility] MCV 89 78 - 100 12/24/2016 [facility] fl 9:16 PM [facility] MCH 28.5 26.5 - 12/24/2016 [facility] 33.0 pg 9:16 PM [facility] MCHC 32.1 31.5 - 12/24/2016 [facility] 36.5 g/dL 9:16 PM [facility] RDW 16.4 (H) 10.0 - 12/24/2016 [facility] 15.0 % 9:16 PM [facility] Platelet Count 156 150 - 450 12/24/2016 [facility] 10e9/L 9:16 PM [facility] Specimen Anatomical Collection Method Collection Time Receive d Time (Source) Location / / Volume Laterality 12/24/2016 8:44 PM 7 8:51 COST ESTIMATOR PM COST ESTIMATOR Nora Leyva MD LAB - BLOOD ORDERABLES Performing Organization Address City/State/ZIP Code Phon e Number [facility] [address] [place] [address] [facility] (ABNORMAL) Arterial Panel (12/24/2016 8:44 PM COST ESTIMATOR) [facility] gist Method Time Signature pH Arterial 7.29 (L) 7.35 - 12/24/2016 [facility] 7.45 pH 8:56 PM [facility] pCO2 Arterial 41 35 - 45 12/24/2016 [facility] mm Hg 8:56 PM [facility] pO2 Arterial 355 (H) 80 - 105 12/24/2016 [facility] mm Hg 8:56 PM [facility] Bicarbonate 20 (L) 21 - 28 12/24/2016 [facility] Arterial mmol/L 8:56 PM [facility] Base Deficit Art 6.1 mmol/L 12/24/2016 [facility] F 8:56 PM [facility] Comment: Reference range: -9.0 to 1.8 FIO2 100% 12/24/2016 8:53 PM [facility] Sodium 137 133 - 144 12/24/2016 8:56 PM [facility] mmol/L [facility] Potassium 3.6 3.4 - 5.3 12/24/2016 8:56 PM [facility] mmol/L [facility] Hemoglobin 7.6 (L) 11.7 - 15.7 12/24/2016 8:56 PM [facility] g/dL [facility] Glucose 160 (H) 70 - 99 mg/dL 12/24/2016 8:56 PM [facility] Calcium Ionized 4.1 (L) 4.4 - 5.2 12/24/2016 8:56 PM [facility] [place] Whole Blood mg/dL [facility] T BANK Specimen Anatomical Collection Method Collection Time Receive d Time (Source) Location / / Volume Laterality 12/24/2016 8:44 PM 7 8:51 COST ESTIMATOR PM COST ESTIMATOR Nora Leyva MD LAB - BLOOD ORDERABLES Performing Organization Address City/State/ZIP Code Phon e Number [facility] [address] [place] [address] [facility] (ABNORMAL) Arterial Panel (12/24/2016 8:25 PM [facility]UST) [facility] Method Time Signature pH Arterial 7.30 (L) 7.35 - 12/24/2016 [facility] 7.45 pH 8:33 PM [facility] pCO2 Arterial 40 35 - 45 12/24/2016 [facility] mm Hg 8:33 PM [facility] pO2 Arterial 195 (H) 80 - 105 12/24/2016 [facility] mm Hg 8:33 PM [facility] Bicarbonate 19 (L) 21 - 28 12/24/2016 [facility] Arterial mmol/L 8:33 PM [facility] Base Deficit Art 6.6 mmol/L 12/24/2016 [facility] F 8:33 PM [facility] Comment: Reference range: -9.0 to 1.8 FIO2 100% 12/24/2016 8:29 PM [facility] Sodium 135 133 - 144 12/24/2016 8:33 PM [facility] mmol/L [facility] Potassium 4.1 3.4 - 5.3 12/24/2016 8:33 PM [facility] mmol/L [facility] Hemoglobin 8.0 (L) 11.7 - 15.7 12/24/2016 8:33 PM [facility] [place] g/dL [facility] Glucose 136 (H) 70 - 99 mg/dL 12/24/2016 8:33 PM [facility] Calcium Ionized 4.3 (L) 4.4 - 5.2 12/24/2016 8:33 PM [facility] [place] Whole Blood mg/dL [facility] BANK Specimen Anatomical Collection Method Collection Time Receive d Time (Source) Location / / Volume Laterality 12/24/2016 8:25 PM 7 8:29 COST ESTIMATOR PM COST ESTIMATOR Nora Leyva MD LAB - BLOOD ORDERABLES Performing Organization Address City/[facility]/ZIP Code Phon e Number [address] [address] [facility] Blood component (12/24/2016 7:25 PM COST ESTIMATOR) [facility] Fios Method Time Signature Unit Number [id number] 12/24/2016 [facility] OF 10:10 PM COST ESTIMATOR [facility] B[facility] Blood Plasma, 12/24/2016 [facility] OF Component Thawed 10:10 PM COST ESTIMATOR [facility] BANK Division 00 12/24/2016 [facility] Number 10:10 PM [facility] B[facility] Status of No longer 12/24/2016 [facility] OF Unit available 11:49 PM COST ESTIMATOR [facility] 12/24/2016 [facility] 2349 BANK Blood Product [id number] 12/24/2016 [facility] OF Code 10:10 PM COST ESTIMATOR [facility] BANK Unit Status RET [facility] Specimen Anatomical Collection Method Collection Time Receive d Time (Source) Location / / Volume Laterality 12/24/2016 7:25 PM 7 7:30 COST ESTIMATOR PM COST ESTIMATOR Nora Leyva MD LAB - BLOOD BANK PRODUCT ORD ER Performing Organization Address [facility] Code Phon e Number [address] [address] [facility] Blood component (12/24/2016 7:25 PM COST ESTIMATOR) [facility] Fios Method Time Signature Unit Number [id number] 12/24/2016 [facility] 10:10 PM COST ESTIMATOR [facility] B[facility] Blood Plasma, 12/24/2016 [facility] Component Thawed 10:10 PM COST ESTIMATOR [facility] BANK Division 00 12/24/2016 [facility] Number 10:10 PM [facility] B[facility] Status of No longer 12/24/2016 [facility] Unit available 11:48 PM COST ESTIMATOR [facility] 12/24/2016 [facility] 2348 BANK Blood Product [id number] 12/24/2016 [facility] Code 10:10 PM COST ESTIMATOR [facility] BANK Unit Status RET [facility] Specimen Anatomical Collection Method Collection Time Receive d Time (Source) Location / / Volume Laterality 12/24/2016 7:25 PM 7 7:30 COST ESTIMATOR PM COST ESTIMATOR Nora Leyva MD LAB - BLOOD BANK PRODUCT ORD ER Performing Organization Address City/[facility]/ZIP Code Phon e Number [address] [address] [facility] Blood component (12/24/2016 7:25 PM COST ESTIMATOR) [facility] Fios Method Time Signature Unit Number [id number] 12/24/2016 [facility] 9 9:03 PM COST ESTIMATOR [facility] BANK Blood Plasma, 12/24/2016 [facility] Component Thawed 9:03 PM COST ESTIMATOR [facility] BANK Division 00 12/24/2016 [facility] Number 9:03 PM [facility] Status of Released to 12/24/2016 [facility] Unit care unit 11:58 PM COST ESTIMATOR [facility] Blood Product [id number] 12/24/2016 [facility] Code 9:03 PM COST ESTIMATOR [facility] B[facility] Unit Status ISS [facility] Specimen Anatomical Collection Method Collection Time Receive d Time (Source) Location / / Volume Laterality 12/24/2016 7:25 PM 7 7:30 COST ESTIMATOR PM COST ESTIMATOR Nora Leyva MD LABORATORY Performing Organization Address City/[facility]/ZIP Code Phon e Number [address] [address] [facility] Blood component (12/24/2016 7:25 PM COST ESTIMATOR) [facility] Fios Method Time Signature Unit Number [id number] 12/24/2016 [facility] 7 9:03 PM COST ESTIMATOR [facility] B[facility] Blood Plasma, 12/24/2016 [facility] Component Thawed 9:03 PM COST ESTIMATOR [facility] BANK Division 00 12/24/2016 [facility] Number 9:03 PM COST ESTIMATOR [facility] B[facility] Status of Released to 12/24/2016 [facility] OF Unit care unit 11:58 PM COST ESTIMATOR [facility] Blood Product [id number] 12/24/2016 [facility] Code 9:03 PM COST ESTIMATOR [facility] B[facility] Unit Status ISS [facility] Specimen Anatomical Collection Method Collection Time Receive d Time (Source) Location / / Volume Laterality 12/24/2016 7:25 PM 7 7:30 COST ESTIMATOR PM COST ESTIMATOR Nora Leyva MD LABORATORY Performing Organization Address City/[facility] Phon e Number [facility] [address] [place] [address] [address] WEST BANK Blood component (12/24/2016 7:25 PM COST ESTIMATOR) [employer] Method Time Signature Unit Number [id number] 12/24/2016 [facility] OF 8:18 PM COST ESTIMATOR [facility] B[facility] Blood Apheresis 12/24/2016 [facility] OF Component Plasma Thawed 8:18 PM COST ESTIMATOR [facility] BANK Division 00 12/24/2016 [facility] Number 8:18 PM COST ESTIMATOR [facility] BANK Status of Released to 12/24/2016 [facility] OF Unit care unit 11:58 PM COST ESTIMATOR [facility] Blood Product [id number] 12/24/2016 [facility] Code 8:18 PM COST ESTIMATOR [facility] B[facility] Unit Status ISS [facility] Specimen Anatomical Collection Method Collection Time Receive d Time (Source) Location / / Volume Laterality 12/24/2016 7:25 PM 7 7:30 COST ESTIMATOR PM COST ESTIMATOR Nora Leyva MD LABORATORY Performing Organization Address City/[facility] Code Phon e Number [facility] [address] [place] [address] [address] [facility] Blood component (12/24/2016 7:25 PM COST ESTIMATOR) [employer] Method Time Signature Unit Number [id number] 12/24/2016 [facility] 5 8:18 PM COST ESTIMATOR [facility] B[facility] Blood Plasma, 12/24/2016 [facility] Component Thawed 8:18 PM COST ESTIMATOR [facility] BANK Division 00 12/24/2016 [facility] Number 8:18 PM COST ESTIMATOR [facility] B[facility] Status of Released to 12/24/2016 [facility] OF Unit care unit 11:58 PM COST ESTIMATOR [facility] Blood Product [id number] 12/24/2016 [facility] Code 8:18 PM COST ESTIMATOR [facility] B[facility] Unit Status ISS [facility] Specimen Anatomical Collection Method Collection Time Receive d Time (Source) Location / / Volume Laterality 12/24/2016 7:25 PM 7 7:30 COST ESTIMATOR PM COST ESTIMATOR Nora Leyva MD LABORATORY Performing Organization Address [facility]/ZIP Code Phon e Number [facility] [address] [place] [address] [address] [facility] Blood component (12/24/2016 7:25 PM COST ESTIMATOR) [facility] Fios Method Time Signature Unit Number [id number] 12/24/2016 [facility] 3 8:18 PM COST ESTIMATOR [facility] B[facility] Blood Plasma, 12/24/2016 [facility] OF Component Thawed 8:18 PM COST ESTIMATOR [facility] BANK Division 00 12/24/2016 [facility] Number 8:18 PM COST ESTIMATOR [facility] B[facility] Status of Released to 12/24/2016 [facility] OF Unit care unit 11:58 PM COST ESTIMATOR [facility] Blood Product [id number] 12/24/2016 [facility] Code 8:18 PM COST ESTIMATOR [facility] B[facility] Unit Status ISS [facility] Specimen Anatomical Collection Method Collection Time Receive d Time (Source) Location / / Volume Laterality 12/24/2016 7:25 PM 7 7:30 COST ESTIMATOR PM COST ESTIMATOR Nora Leyva MD LABORATORY Performing Organization Address [facility]/ZIP Code Phon e Number [facility] [address] [place] [address] [address] [facility] Blood component (12/24/2016 7:25 PM COST ESTIMATOR) [facility] Fios Method Time Signature Unit Number [id number] 12/24/2016 [facility] 9 8:18 PM COST ESTIMATOR [facility] Blood Plasma, 12/24/2016 [facility] Component Thawed 8:18 PM COST ESTIMATOR [facility] BANK Division 00 12/24/2016 [facility] Number 8:18 PM COST ESTIMATOR [facility] B[facility] Status of Released to 12/24/2016 [facility] OF Unit care unit 11:58 PM COST ESTIMATOR [facility] Blood Product [id number] 12/24/2016 [facility] Code 8:18 PM COST ESTIMATOR [facility] Unit Status ISS [facility] Specimen Anatomical Collection Method Collection Time Receive d Time (Source) Location / / Volume Laterality 12/24/2016 7:25 PM 7 7:30 COST ESTIMATOR PM COST ESTIMATOR Nora Leyva MD LABORATORY Performing Organization Address City/State/ZIP Code Phon e Number [facility] [address] [place] [address] [address] [facility] Plasma prepare order unit (12/24/2016 7:25 PM COST ESTIMATOR) P athologist Signature Blood Plasma 12/24/2016 [facility] OF Component Type 7:31 PM [facility] Units Ordered 8 12/24/2016 [facility] 10:10 PM [facility] Specimen Anatomical Collection Method Collection Time Receive d Time (Source) Location / / Volume Laterality 12/24/2016 7:25 PM 7 7:30 COST ESTIMATOR PM COST ESTIMATOR Nora Leyva MD BLOOD BANK PRODUCT ORDERABLE S Performing Organization Address City/[facility]/ZIP Code Phon e Number [address] [address] [facility] (ABNORMAL) CBC with platelets differential (12/24/2016 7:06 PM COST ESTIMATOR) [facility] gist Method Time Signature WBC 10.4 4.0 - 12/24/2016 [facility] 11.0 7:11 PM [facility] 10e9/L [facility] RBC Count 2.99 (L) 3.8 - 5.2 12/24/2016 [facility] 10e12/L 7:11 PM [facility] Hemoglobin 9.0 (L) 11.7 - 12/24/2016 [facility] 15.7 g/dL 7:11 PM [facility] Hematocrit 28.5 (L) 35.0 - 12/24/2016 [facility] 47.0 % 7:11 PM [facility] MCV 95 78 - 100 12/24/2016 [facility] fl 7:11 PM [facility] MCH 30.1 26.5 - 12/24/2016 [facility] 33.0 pg 7:11 PM [facility] MCHC 31.6 31.5 - 12/24/2016 [facility] 36.5 g/dL 7:11 PM [facility] RDW 16.1 (H) 10.0 - 12/24/2016 [facility] 15.0 % 7:11 PM [facility] Platelet Count 256 150 - 450 12/24/2016 [facility] 10e9/L 7:11 PM [facility] Diff Method Automated 12/24/2016 [facility] Method 7:11 PM [facility] % Neutrophils 69.4 % 12/24/2016 [facility] 7:11 PM [facility] % Lymphocytes 21.5 % 12/24/2016 [facility] 7:11 PM [facility] % Monocytes 5.7 % 12/24/2016 [facility] 7:11 PM [facility] % Eosinophils 2.9 % 12/24/2016 [facility] 7:11 PM [facility] % Basophils 0.1 % 12/24/2016 [facility] 7:11 PM [facility] % Immature 0.4 % 12/24/2016 [facility] Granulocytes 7:11 PM [facility] Nucleated RBCs 0 0 /100 12/24/2016 [facility] 7:11 PM [facility] Absolute 7.2 1.6 - 8.3 12/24/2016 [facility] Neutrophil 10e9/L 7:11 PM [facility] Absolute 2.2 0.8 - 5.3 12/24/2016 [facility] Lymphocytes 10e9/L 7:11 PM [facility] Absolute 0.6 0.0 - 1.3 12/24/2016 [facility] Monocytes 10e9/L 7:11 PM [facility] Absolute 0.3 0.0 - 0.7 12/24/2016 [facility] Eosinophils 10e9/L 7:11 PM [facility] Absolute 0.0 0.0 - 0.2 12/24/2016 [facility] Basophils 10e9/L 7:11 PM [facility] Abs Immature 0.0 0 - 0.4 12/24/2016 [facility] Granulocytes 10e9/L 7:11 PM [facility] Absolute 0.0 12/24/2016 [facility] Nucleated RBC 7:11 PM [facility] Specimen Anatomical Collection Method Collection Time Receive d Time (Source) Location / / Volume Laterality Blood specimen 12/24/2016 7:06 PM 017 7:07 (specimen) COST ESTIMATOR PM COST ESTIMATOR Kayla Davidson MD LAB - BLOOD ORDERABLES Performing Organization Address City/State/ZIP Code Phon e Number [facility] [address] [place] [address] [facility] Urine Culture Aerobic Bacterial (12/24/2016 7:50 AM COST ESTIMATOR) Component Value Ref Test Analysis Performed At [facility] Range Method Time Signature Specimen Midstream Urine INFECTIOUS Description DISEASE DIAGNOSTIC LABORATORY Special Specimen received 12/24/2016 [facility] in preservative 11:03 AM [facility] Culture Micro <10,000 colonies/mL 12/25/2016 INFEC TIOUS mixed urogenital evelina 7:35 AM [facility] Susceptibility testing not routinely done DIAGNOSTIC LABORATORY Specimen (Source) Anatomical Collection Method Collection Time Re ceived Time Location / / Volume Laterality Examination of 12/24/2016 7:50 12/24/2016 8:46 midstream urine AM COST ESTIMATOR AM COST ESTIMATOR specimen (procedure) Nora Leyva MD LAB - MICRO GENERAL ORDERABL ES Performing Organization Address City/[facility]/ZIP Code Phon e Number INFECTIOUS DISEASES [address] [place] [address] DIAGNOSTIC LABORATORY, [facility] INFECTIOUS DISEASE [address] [place] [address], [facility] DIAGNOSTIC LABORATORY [address] [address], [facility] (ABNORMAL) UA with Microscopic reflex to Culture (12/24/2016 7:50 AM COST ESTIMATOR) [facility] Method Time Signature Color Urine Yellow 12/24/2016 [facility] 8:35 AM [facility] Appearance Urine Clear 12/24/2016 [facility] O F 8:35 AM [facility] Glucose Urine Negative NEG^Negat 12/24/2016 [facility] paula mg/dL 8:35 AM [facility] Bilirubin Urine Negative NEG^Negat 12/24/2016 [facility] paula 8:35 AM [facility] Ketones Urine Negative NEG^Negat 12/24/2016 [facility] paula mg/dL 8:35 AM [facility] Specific [place] 1.013 1.003 - 12/24/2016 UNIVERSITY O F Urine 1.035 8:35 AM [facility] Blood Urine Moderate (A) NEG^Negat 12/24/2016 [facility] paula 8:35 AM [facility] pH Urine 6.5 5.0 - 7.0 12/24/2016 [facility] pH 8:35 AM [facility] Protein Albumin Negative NEG^Negat 12/24/2016 [facility] Urine paula mg/dL 8:35 AM [facility] Urobilinogen Normal 0.0 - 2.0 12/24/2016 [facility] mg/dL mg/dL 8:35 AM [facility] Nitrite Urine Negative NEG^Negat 12/24/2016 [facility] paula 8:35 AM [facility] Leukocyte Large (A) NEG^Negat 12/24/2016 [facility] Esterase Urine paula 8:35 AM [facility] Source Midstream 12/24/2016 [facility] Urine 8:06 AM [facility] WBC Urine 24 (H) 0 - 2 12/24/2016 [facility] /HPF 8:37 AM [facility] RBC Urine 34 (H) 0 - 2 12/24/2016 [facility] /HPF 8:37 AM [facility] Bacteria Urine Few (A) NEG^Negat 12/24/2016 [facility] paula /HPF 8:37 AM [facility] Squamous 2 (H) 0 - 1 12/24/2016 [facility] Epithelial /HPF /HPF 8:37 AM [facility] Transitional Epi <1 0 - 1 12/24/2016 [facility] F /HPF 8:37 AM [facility] Specimen (Source) Anatomical Collection Method Collection Time Re ceived Time Location / / Volume Laterality Examination of URINE SPECIMEN 12/24/2016 7:50 12/25/19 17 8:05 midstream urine OBTAINED BY CLEAN AM COST ESTIMATOR AM COST ESTIMATOR specimen CATCH PROCEDURE / (procedure) Unknown Petrona Barone DO LAB - URINE ORDERABLES Performing Organization Address City/State/ZIP Code Phon e Number [facility] [address] [place] [address] [facility] (ABNORMAL) Wet prep (12/23/2016 11:53 PM COST ESTIMATOR) Component Value Ref Test Analysis Performed At Patholo gist Range Method Time Signature Specimen Vagina [facility] Description [facility] Wet Prep No motile 12/24/2016 [facility] Trichomonas 12:21 AM [facility] seen [facility] Wet Prep Rare 12/24/2016 [facility] Yeast seen 12:21 AM [facility] (A) [facility] Wet Prep Moderate 12/24/2016 [facility] PMNs seen 12:21 AM [facility] Wet Prep No clue cells 12/24/2016 [facility] seen 12:21 AM [facility] Specimen Anatomical Collection Method Collection Time Receive d Time (Source) Location / / Volume Laterality Specimen from 12/23/2016 11:53 12/24/2016 vagina PM COST ESTIMATOR 12:10 AM COST ESTIMATOR (specimen) Petrona Barone DO LAB - MICRO GENERAL ORDERABL ES Performing Organization Address City/State/ZIP Code Phon e Number [facility] [address] [place] [address] [facility] Maternal BPP Single (12/23/2016 8:37 AM COST ESTIMATOR) Anatomical Region Laterality Modality Ultrasound Specimen (Source) Anatomical Collection Method Collection Time Re ceived Time Location / / Volume Laterality 12/23/2016 8:05 AM COST ESTIMATOR Impressions 12/23/2016 11:10 AM COST ESTIMATOR IMPRESSION 1) Intrauterine at 29 3/7 week s gestational age. 2) The BPP is reassuring. 3) The amniotic fluid volume low consist ent with known PPROM. 4) There is a complete posterior/lateral placenta previa. Narrative 12/23/2016 11:10 AM COST ESTIMATOR BPP Pat. Name: DEANN KING Study Date: 8:05am Pat. NO: [id number] Referring ??MD: CHRIST LOZADA Site: [facility] Bank Runner: Jay Lu : 1980 Age: 36 INDICATION Premature Rupture of Membranes ( PPROM) Complete previa. [facility] ANTEPARTUM inpatient exam, Transabd ominal ultrasound examination. Espinoza . Number of fetuses: 1. DATING ? Date ?Details ?Gest. age ?JEAN MARIE External assessment ?5/28/2 017 ?GA: 6 w + 2 d ? 29 w + 3 d ? 03/07/2017 Assigned dating ?Dating performed on 12/23/2016, based on the external assessment (on 07/14/2016) ? 29 w + 3 d ? 03/07/2017 GENERAL EVALUATION Cardiac activity: present. FHR 145 bpm. movements: visualized. Presentation: cephalic. Placenta: Placental site: posterior, complete prev ia. Umbilical cord: previously studied. AMNIOTIC FLUID ASSESSMENT Amount of AF: Low MVP 2.6 cm. MARCELLA 5.9 cm. Q1 0.0 cm, Q2 1. 7 cm, Q3 2.6 cm, Q4 1.6 cm BIOPHYSICAL PROFILE 2: breathing movements 2: Gross body movements 2: tone 2: Amniotic fluid volume 09/24: Biophysical profile score MATERNAL STRUCTURES Cervix ?Not examined. RECOMMENDATION We discussed the findings on today's ult rasound with the patient. Continue inpatient management due to PPR OM in the setting of placenta previa. Thank you for the opportunity to partici isabel in the care of this patient. If you have questions regarding today's evaluation or if we can be of further service, please contact the [facility]. anomalies may be present but not detected. Procedure Note Petrona Barone DO - 12/23/2016 BPP Pat. Name:Elizabeth KING Date:12/23 8:05am Pat. NO: [id number] MD:CHRIST BHAT ON [facility]:Yes[facility] RDMS :1980Age:36 INDICATION Premature Rupture of Membranes ( PPROM) Complete previa. [facility] ANTEPARTUM inpatient exam, Transabd ominal ultrasound examination. Espinoza . Number of fetuses: 1. DATING Date Details Gest. age JEAN MARIE External assessment 07/14/2016 GA: 6 w + 2 d 29 w + 3 d 03/07/2017 Assigned dating Dating performed on 12/23, based on the external assessment (on 07/14/2016) 29 w + 3 d 03/07/2017 GENERAL EVALUATION Cardiac activity: present. FHR 145 bpm. movements: visualized. Presentation: cephalic. Placenta: Placental site: posterior, complete prev ia. Umbilical cord: previously studied. AMNIOTIC FLUID ASSESSMENT Amount of AF: Low MVP 2.6 cm. MARCELLA 5.9 cm. Q1 0.0 cm, Q2 1. 7 cm, Q3 2.6 cm, Q4 1.6 cm BIOPHYSICAL PROFILE 2: breathing movements 2: Gross body movements 2: tone 2: Amniotic fluid volume 09/24: Biophysical profile score MATERNAL STRUCTURES Cervix Not examined. RECOMMENDATION We discussed the findings on today's ult rasound with the patient. Continue inpatient management due to PPR OM in the setting of placenta previa. Thank you for the opportunity to partici isabel in the care of this patient. If you have questions regarding today's evaluation or if we can be of further service, please contact the [facility]. anomalies may be present but not detected. IMPRESSION 1) Intrauterine at 29 3/7 week s gestational age. 2) The BPP is reassuring. 3) The amniotic fluid volume low consist ent with known PPROM. 4) There is a complete posterior/lateral placenta previa. Lashawn Patel MD [facility] ORDER[facility] Blood component (12/23/2016 6:54 AM COST ESTIMATOR) Thoughtly Method Time Signature Unit Number [id number] 12/24/2016 [facility] 9:49 PM COST ESTIMATOR [facility] BANK Blood Red Blood 12/24/2016 [facility] Component Cells 9:49 PM [facility] Reduced BANK Division 00 12/24/2016 [facility] Number 9:49 PM [facility] Status of Released to 12/24/2016 [facility] Unit care unit 11:58 PM [facility] Blood Product [id number] 12/24/2016 [facility] Code 9:49 PM [facility] Unit Status ISS [facility] Specimen Anatomical Collection Method Collection Time Receive d Time (Source) Location / / Volume Laterality 12/23/2016 6:54 AM 7 6:55 COST ESTIMATOR AM COST ESTIMATOR Nora [facility] LABORATORY Performing Organization Address City/State/ZIP Code Phon e Number [facility] [address] [place], [place] [id number] [place] [address] [place] [id number] [place] [address] Blood component (12/23/2016 6:54 AM COST ESTIMATOR) Thoughtly Method Time Signature Unit Number [id number] 12/24/2016 [facility] 9:49 PM [facility] BANK Blood Red Blood 12/24/2016 [facility] Component Cells 9:49 PM [facility] Leukocyte [facility] Reduced BANK Division 00 12/24/2016 [facility] Number 9:49 PM [facility] Status of No longer 12/24/2016 [facility] Unit available 11:50 PM [facility] 12/24/2016 [facility] [address]50 BANK Blood Product [id number] 12/24/2016 [facility] Code 9:49 PM [facility] Unit Status RET [facility] Specimen Anatomical Collection Method Collection Time Receive d Time (Source) Location / / Volume Laterality 12/23/2016 6:54 AM 7 6:55 COST ESTIMATOR AM COST ESTIMATOR Nora Mohamud LABORATORY Performing Organization Address City/[facility]/ZIP Code Phon e Number [address] [address] [place] Blood component (12/23/2016 6:54 AM COST ESTIMATOR) [facility] Fios Method Time Signature Unit Number [id number] 12/24/2016 [facility] 9:49 PM COST ESTIMATOR [facility] Blood Red Blood 12/24/2016 [facility] Component Cells 9:49 PM COST ESTIMATOR [facility] Reduced BANK Division 00 12/24/2016 [facility] Number 9:49 PM COST ESTIMATOR [facility] Status of Released to 12/24/2016 [facility] Unit care unit 11:58 PM COST ESTIMATOR [facility] Blood Product [id number] 12/24/2016 [facility] Code 9:49 PM COST ESTIMATOR [facility] Unit Status ISS [facility] Specimen Anatomical Collection Method Collection Time Receive d Time (Source) Location / / Volume Laterality 12/23/2016 6:54 AM 7 6:55 COST ESTIMATOR AM COST ESTIMATOR Nora Munguia Cade LAB - BLOOD BANK PRODUCT ORD ER Performing Organization Address City/[facility] Code Phon e Number [facility] [address] [place], [place] [id number] [place] [address] [facility] Blood component (12/23/2016 6:54 AM COST ESTIMATOR) Thoughtly Method Time Signature Unit Number [id number] 12/24/2016 [facility] 9:49 PM COST ESTIMATOR [facility] Blood Red Blood 12/24/2016 [facility] Component Cells 9:49 PM COST ESTIMATOR [facility] Reduced BANK Division 00 12/24/2016 [facility] Number 9:49 PM COST ESTIMATOR [facility] Status of Released to 12/24/2016 [facility] Unit care unit 11:58 PM COST ESTIMATOR [facility] Blood Product [id number] 12/24/2016 [facility] Code 9:49 PM COST ESTIMATOR [facility] Unit Status ISS [facility] Specimen Anatomical Collection Method Collection Time Receive d Time (Source) Location / / Volume Laterality 12/23/2016 6:54 AM 7 6:55 COST ESTIMATOR AM COST ESTIMATOR Nora Bhatiabrand [employer] LAB - BLOOD BANK PRODUCT ORD ER Performing Organization Address City/[facility] Phon e Number [facility] [address] [place] [address] [address] [place] Blood component (12/23/2016 6:54 AM COST ESTIMATOR) Patholo gist Method Time Signature Unit Number [id number] 12/24/2016 [facility] 8:38 PM COST ESTIMATOR [facility] Blood Red Blood 12/24/2016 [facility] Component Cells 8:38 PM COST ESTIMATOR [facility] Reduced BANK Division 00 12/24/2016 [facility] Number 8:38 PM COST ESTIMATOR [facility] Status of Released to 12/24/2016 [facility] Unit care unit 11:58 PM COST ESTIMATOR [facility] Blood Product [id number] 12/24/2016 [facility] Code 8:38 PM COST ESTIMATOR [facility] Unit Status ISS [facility] Specimen Anatomical Collection Method Collection Time Receive d Time (Source) Location / / Volume Laterality 12/23/2016 6:54 AM 7 6:55 COST ESTIMATOR AM COST ESTIMATOR Nora Bhatiabrand [employer] LAB - BLOOD BANK PRODUCT ORD ER Performing Organization Address City/[facility] Code Phon e Number [facility] [address] [place] [address] [address] [place] Blood component (12/23/2016 6:54 AM COST ESTIMATOR) Patholo gist Method Time Signature Unit Number [id number] 12/24/2016 [facility] 8:38 PM COST ESTIMATOR [facility] Blood Red Blood 12/24/2016 [facility] Component Cells 8:38 PM COST ESTIMATOR [facility] Reduced BANK Division 00 12/24/2016 [facility] Number 8:38 PM COST ESTIMATOR [facility] Status of Released to 12/24/2016 [facility] Unit care unit 11:58 PM COST ESTIMATOR [facility] Blood Product [id number] 12/24/2016 [facility] Code 8:38 PM COST ESTIMATOR [facility] Unit Status ISS [facility] Specimen Anatomical Collection Method Collection Time Receive d Time (Source) Location / / Volume Laterality 12/23/2016 6:54 AM 7 6:55 COST ESTIMATOR AM COST ESTIMATOR Nora Mohmaud LAB - BLOOD BANK PRODUCT ORD ER Performing Organization Address City/[facility]/ZIP Code Phon e Number [facility] [address] [place] [address] [address] [place] Blood component (12/23/2016 6:54 AM COST ESTIMATOR) Patholo gist Method Time Signature Unit Number [id number] 12/24/2016 [facility] 8:38 PM COST ESTIMATOR [facility] Blood Red Blood 12/24/2016 [facility] Component Cells 8:38 PM COST ESTIMATOR [facility] Reduced BANK Division 00 12/24/2016 [facility] Number 8:38 PM [facility] Status of Released to 12/24/2016 [facility] Unit care unit 11:58 PM COST ESTIMATOR [facility] Blood Product [id number] 12/24/2016 [facility] Code 8:38 PM [facility] Unit Status ISS [facility] Specimen Anatomical Collection Method Collection Time Receive d Time (Source) Location / / Volume Laterality 12/23/2016 6:54 AM 7 6:55 COST ESTIMATOR AM COST ESTIMATOR Nora Mohamud LABORATORY Performing Organization Address City/[facility]/ZIP Code Phon e Number [facility] [address] [place] [address] [address] [place] Blood component (12/23/2016 6:54 AM COST ESTIMATOR) Patholo gist Method Time Signature Unit Number [id number] 12/24/2016 [facility] 8:38 PM [facility] Blood Red Blood 12/24/2016 [facility] Component Cells 8:38 PM COST ESTIMATOR [facility] Reduced BANK Division 00 12/24/2016 [facility] Number 8:38 PM [facility] Status of Released to 12/24/2016 [facility] Unit care unit 11:58 PM COST ESTIMATOR [facility] Blood Product [id number] 12/24/2016 [facility] Code 8:38 PM COST ESTIMATOR [facility] Unit Status ISS [facility] Specimen Anatomical Collection Method Collection Time Receive d Time (Source) Location / / Volume Laterality 12/23/2016 6:54 AM 7 6:55 COST ESTIMATOR AM COST ESTIMATOR [facility]AT[facility] Performing Organization Address City/[facility]/ZIP Code Phon e Number [facility] [address] [place] [address] [address] [place] Blood component (12/23/2016 6:54 AM COST ESTIMATOR) Thoughtly Method Time Signature Unit Number [id number] 12/24/2016 [facility] 7:32 PM COST ESTIMATOR [facility] Blood Red Blood 12/24/2016 [facility] Component Cells 7:32 PM COST ESTIMATOR [facility] Reduced BANK Division 00 12/24/2016 [facility] Number 7:32 PM COST ESTIMATOR [facility] Status of Released to 12/24/2016 [facility] Unit care unit 11:58 PM COST ESTIMATOR [facility] Blood Product [id number] 12/24/2016 [facility] Code 7:32 PM [facility] Unit Status ISS [facility] Specimen Anatomical Collection Method Collection Time Receive d Time (Source) Location / / Volume Laterality 12/23/2016 6:54 AM 7 6:55 COST ESTIMATOR AM COST ESTIMATOR [facility] LABORATORY Performing Organization Address City/[facility]/ZIP Code Phon e Number [facility] [address] [place] [address] [address] [place] Blood component (12/23/2016 6:54 AM COST ESTIMATOR) Thoughtly Method Time Signature Unit Number [id number] 12/24/2016 [facility] 7:32 PM COST ESTIMATOR [facility] Blood Red Blood 12/24/2016 [facility] OF Component Cells 7:32 PM COST ESTIMATOR [facility] Reduced BANK Division 00 12/24/2016 [facility] Number 7:32 PM [facility] Status of Released to 12/24/2016 [facility] Unit care unit 11:58 PM COST ESTIMATOR [facility] Blood Product [id number] 12/24/2016 [facility] Code 7:32 PM COST ESTIMATOR [facility] Unit Status ISS [facility] Specimen Anatomical Collection Method Collection Time Receive d Time (Source) Location / / Volume Laterality 12/23/2016 6:54 AM 7 6:55 COST ESTIMATOR AM COST ESTIMATOR [facility] [employer] LABORATORY Performing Organization Address City/[facility]/ZIP Code Phon e Number [facility] [address] [place] [address] [address] [place] Blood component (12/23/2016 6:54 AM COST ESTIMATOR) [facility] Fios Method Time Signature Unit Number [id number] 12/24/2016 [facility] 7:05 PM [facility] BANK Blood Red Blood 12/24/2016 [facility] Component Cells 7:05 PM [facility] Reduced BANK Division 00 12/24/2016 [facility] Number 7:05 PM [facility] Status of Released to 12/24/2016 [facility] Unit care unit 11:58 PM COST ESTIMATOR [facility] Blood Product [id number] 12/24/2016 [facility] Code 7:05 PM [facility] Unit Status ISS [facility] Specimen Anatomical Collection Method Collection Time Receive d Time (Source) Location / / Volume Laterality 12/23/2016 6:54 AM 7 6:55 COST ESTIMATOR AM COST ESTIMATOR [facility] [employer] LABORATORY Performing Organization Address City/State/ZIP Code Phon e Number [facility] [address] [place] [address] [address] [place] Blood component (12/23/2016 6:54 AM COST ESTIMATOR) [facility] Fios Method Time Signature Unit Number [id number] 12/24/2016 [facility] 7:05 PM COST ESTIMATOR [facility] Blood Red Blood 12/24/2016 [facility] Component Cells 7:05 PM [facility] Reduced BANK Division 00 12/24/2016 [facility] Number 7:05 PM COST ESTIMATOR [facility] BANK Status of Released to 12/24/2016 [facility] OF Unit care unit 11:58 PM COST ESTIMATOR [facility] Blood Product [id number] 12/24/2016 [facility] Code 7:05 PM [facility] Unit Status ISS [facility] Specimen Anatomical Collection Method Collection Time Receive d Time (Source) Location / / Volume Laterality 12/23/2016 6:54 AM 7 6:55 COST ESTIMATOR AM COST ESTIMATOR Nora [employer] LABORATORY Performing Organization Address City/State/ZIP Code Phon e Number [facility] [address] [place] [address] [address] [facility] ABO/Rh type and screen (12/23/2016 6:54 AM COST ESTIMATOR) [facility] gist Method Time Signature Units Ordered 12 12/24/2016 [facility] 9:49 PM COST ESTIMATOR [facility] ABO B 12/23/2016 [facility] 7:32 AM COST ESTIMATOR [facility] RH(D) Pos [facility] BANK Antibody Neg 12/23/2016 [facility] OF Screen 7:32 AM COST ESTIMATOR [facility] Test Valid [facility] 12/23/2016 [facility] [place] [facility] [place] 7:01 AM COST ESTIMATOR [facility] BANK w Hospital Specimen 12/26/2016 12/23/2016 [facility] OF Expires 7:01 AM COST ESTIMATOR [facility] Crossmatch Red Blood 12/24/2016 UN[facility]ERSITY OF Cells 7:05 PM COST ESTIMATOR [facility] Specimen Anatomical Collection Method Collection Time Receive d Time (Source) Location / / Volume Laterality Blood specimen 12/23/2016 6:54 AM 017 6:55 (specimen) COST ESTIMATOR AM COST ESTIMATOR Nora Vincebrand [employer] LAB - BLOOD BANK TEST ORDER Performing Organization Address City/State/ZIP Code Phon e Number [address] [address] [place] ABO/Rh type and screen (12/20/2016 10:48 AM CDT) [facility] gist Method Time Signature ABO B 12/20/2016 [facility] 11:31 AM CDT [facility] BANK RH(D) Pos [facility] Antibody Neg 12/20/2016 UN[facility]ITY OF Screen 11:31 AM CDT [facility] Test Valid [facility] 12/20/2016 [facility] [place] [facility] [place] 11:00 AM CDT [facility] BANK w Hospital Specimen 12/23/2016 12/20/2016 [facility] OF Expires 11:00 AM CDT [facility] Specimen Anatomical Collection Method Collection Time Receive d Time (Source) Location / / Volume Laterality Blood specimen 12/20/2016 10:48 7 (specimen) AM CDT 10:49 AM CDT Lashawn Patel MD LAB - BLOOD BANK TEST ORDER Performing Organization Address City/State/ZIP Code Phon e Number [facility] [address] [place] [address] [facility] Maternal BPP Single (12/19/2016 8:46 AM CDT) Anatomical Region Laterality Modality Ultrasound Specimen (Source) Anatomical Collection Method Collection Time Re ceived Time Location / / Volume Laterality 12/19/2016 8:16 AM CDT Impressions 12/25/2016 9:13 AM COST ESTIMATOR IMPRESSION 1) Intrauterine at 28 6/7 week s gestational age. 2) The BPP is reassuring. 3) Oligohydramnios is seen consistent wi th know PPROM. 4) A complete posterior placenta previa is again seen. Narrative 12/25/2016 9:13 AM COST ESTIMATOR BPP Pat. Name: DEANN KING Study Date: 8:16am Pat. NO: [id number] Referring ??: CHRIST LOZADA Site: [facility] Bank Runner: Jay Lu : 1980 Age: 36 INDICATION Premature Rupture of Membranes ( PPROM) Complete previa. [facility] ANTEPARTUM inpatient exam, Transabd ominal ultrasound examination. Espinoza . Number of fetuses: 1. DATING ? Date ?Details ?Gest. age ?JEAN MARIE External assessment ?5/28/2 017 ?GA: 6 w + 2 d ? 28 w + 6 d ? 03/07/2017 Assigned dating ?Dating performed on 12/19/2016, based on the external assessment (on 07/14/2016) ? 28 w + 6 d ? 03/07/2017 GENERAL EVALUATION Cardiac activity: present. FHR 129 bpm. movements: visualized. Presentation: cephalic. Placenta: Placental site: posterior, known complete previa. Umbilical cord: previously studied. AMNIOTIC FLUID ASSESSMENT Amount of AF: Oligohydramnios MVP 3.0 cm. MARCELLA 4.0 cm. Q1 0.9 cm, Q2 0. 0 cm, Q3 0.0 cm, Q4 3.0 cm BIOPHYSICAL PROFILE 2: breathing movements 2: Gross body movements 2: tone 2: Amniotic fluid volume 8/8: Biophysical profile score MATERNAL STRUCTURES Cervix ?Not examined. RECOMMENDATION We discussed the findings on today's ult rasound with the patient. [facility]. Continue inpatient management of PPROM. Thank-you for the opportunity to particonur hall in the care of this patient. If you have questions regarding today's evaluation or if we can be of further service, please contact the [facility]. anomalies may be present but not detected. Procedure Note Lashawn Patel MD - 12/25/2016Formatt ing of this note might be different from the original. BPP Pat. Name:Elizabeth KING Date:12/19 8:16am Pat. NO: [id number] :CHRIST BHAT ON [facility]:Yesenia Sen RDMS :1980Age:36 INDICATION Premature Rupture of Membranes ( PPROM) Complete previa. [facility] ANTEPARTUM inpatient exam, Transabd ominal ultrasound examination. Espinoza . Number of fetuses: 1. DATING Date Details Gest. age JEAN MARIE External assessment 07/14/2016 GA: 6 w + 2 d 28 w + 6 d 03/07/2017 Assigned dating Dating performed on 12/19, based on the external assessment (on 07/14/2016) 28 w + 6 d 03/07/2017 GENERAL EVALUATION Cardiac activity: present. FHR 129 bpm. movements: visualized. Presentation: cephalic. Placenta: Placental site: posterior, known complete previa. Umbilical cord: previously studied. AMNIOTIC FLUID ASSESSMENT Amount of AF: Oligohydramnios MVP 3.0 cm. MARCELLA 4.0 cm. Q1 0.9 cm, Q2 0. 0 cm, Q3 0.0 cm, Q4 3.0 cm BIOPHYSICAL PROFILE 2: breathing movements 2: Gross body movements 2: tone 2: Amniotic fluid volume 09/24: Biophysical profile score MATERNAL STRUCTURES Cervix Not examined. RECOMMENDATION We discussed the findings on today's ult rasound with the patient. Continue surveillance with twi weekly BPP. Continue inpatient management of PPROM. Thank-you for the opportunity to partici isabel in the care of this patient. If you have questions regarding today's evaluation or if we can be of further service, please contact the [facility]. anomalies may be present but not detected. IMPRESSION 1) Intrauterine at 28 6/7 week s gestational age. 2) The BPP is reassuring. 3) Oligohydramnios is seen consistent wi th know PPROM. 4) A complete posterior placenta previa is again seen. Erum Manzanares MD IMG MF US ORDERABLES ABO/Rh type and screen (12/17/2016 6:54 AM CDT) [facility] Method Time Signature ABO B 12/17/2016 UNIVERSITY 7:49 AM CDT [facility] RH(D) Pos [facility] Antibody Neg 12/17/2016 UN[facility]ERSITY OF Screen 7:49 AM CDT [facility] Test Valid [facility] 12/17/2016 [facility] [place] [facility] [place] 7:18 AM CDT [facility] BANK w Hospital Specimen 12/20/2016 12/17/2016 UNIVERSITY OF Expires 7:18 AM CDT [facility] Specimen Anatomical Collection Method Collection Time Receive d Time (Source) Location / / Volume Laterality Blood specimen 12/17/2016 6:54 AM 017 6:56 (specimen) CDT AM CDT [facility] ORDER Performing Organization Address City/State/ZIP Code Phon e Number [facility] [address] [place] [address] [facility] Maternal US OB Limited Single/Multiple (12/16/2016 9:24 AM CDT) Anatomical Region Laterality Modality Ultrasound Specimen (Source) Anatomical Collection Method Collection Time Re ceived Time Location / / Volume Laterality 12/16/2016 8:43 AM CDT Impressions 12/17/2016 3:14 PM CDT IMPRESSION 1) Intrauterine at 28 3/7 week s gestational age. 2) A complete posterior placenta previa is again noted. 3) Oligohydramnios is again noted, consi stent with known PPROM. Narrative 12/17/2016 3:14 PM CDT Limited Pat. Name: DEANN KING Study Date: 8:43am Pat. NO: [id number] Referring ??MD: CHRIST LOZADA Site: [facility] Bank Runner: Jay Lu : 1980 Age: 36 INDICATION Premature Rupture of Membranes ( PPROM) Complete previa. [facility] ANTEPARTUM inpatient exam, Transabd ominal ultrasound examination. Espinoza . Number of fetuses: 1. DATING ? Date ?Details ?Gest. age ?JEAN MARIE External assessment ?5/28/2 017 ?GA: 6 w + 2 d ? 28 w + 3 d ? 03/07/2017 Assigned dating ?Dating performed on 12/16/2016, based on the external assessment (on 07/14/2016) ? 28 w + 3 d ? 03/07/2017 GENERAL EVALUATION Cardiac activity: present. FHR 138 bpm. movements: visualized. Presentation: cephalic. Placenta: Placental site: posterior, complete prev ia. Umbilical cord: Cord vessels: previously studied. Amniotic fluid: MVP 2.0 cm. MARCELLA 4.1 cm. Q1 2.0 cm, Q2 0.9 cm, Q3 1.1 cm, Q4 0.0 cm. BIOMETRY Amniotic Fluid / FHR: AF MVP ?2.0 ? cm ? MARCELLA ? 4.1 ?cm ? FHR ?138 ? bpm ? ANATOMY Gender: male. MATERNAL STRUCTURES Right Ovary ?Visualized. Left Ovary ?Visualized. RECOMMENDATION We discussed the findings on today's ult rasound with the patient. Continue surveillance with twi ce weekly BPP. Continue inpatient management until delivery. Thank-you for the opportunity to particonur hall in the care of this patient. If you have questions regarding today's evaluation or if we can be of further service, please contact the [facility]. anomalies may be present but not detected. Procedure Note Lashawn Patel MD - 12/17/2016Formatt ing of this note might be different from the original. Limited Pat. Name:Elizabeth KING Date:12/16 8:43am Pat. NO: [id number] MD:CHRIST BHAT ON [facility]Yesenia Sen RDMS :1980Age:36 INDICATION Premature Rupture of Membranes ( PPROM) Complete previa. [facility] ANTEPARTUM inpatient exam, Transabd ominal ultrasound examination. Espinoza . Number of fetuses: 1. DATING Date Details Gest. age JEAN MARIE External assessment 07/14/2016 GA: 6 w + 2 d 28 w + 3 d 03/07/2017 Assigned dating Dating performed on 11/19, based on the external assessment (on 07/14/2016) 28 w + 3 d 03/07/2017 GENERAL EVALUATION Cardiac activity: present. FHR 138 bpm. movements: visualized. Presentation: cephalic. Placenta: Placental site: posterior, complete prev ia. Umbilical cord: Cord vessels: previously studied. Amniotic fluid: MVP 2.0 cm. MARCELLA 4.1 cm. Q1 2.0 cm, Q2 0.9 cm, Q3 1.1 cm, Q4 0.0 cm. BIOMETRY Amniotic Fluid / FHR: AF MVP 2.0 cm MARCELLA 4.1 cm FHR 138 bpm ANATOMY Gender: male. MATERNAL STRUCTURES Right Ovary Visualized. Left Ovary Visualized. RECOMMENDATION We discussed the findings on today's ulzuhair rasound with the patient. Continue surveillance with twi ce weekly BPP. Continue inpatient management until delivery. Thank-you for the opportunity to partici isabel in the care of this patient. If you have questions regarding today's evaluation or if we can be of further service, please contact the [facility]. anomalies may be present but not detected. IMPRESSION 1) Intrauterine at 28 3/7 week s gestational age. 2) A complete posterior placenta previa is again noted. 3) Oligohydramnios is again noted, consi stent with known PPROM. Erum Manzanares MD [facility] US ORDERABLES ABO/Rh type and screen (12/14/2016 12:28 AM CDT) [facility] gist Method Time Signature ABO B 12/14/2016 UN[facility]ITY OF 4:01 AM CDT [facility] RH(D) Pos [facility] Antibody Neg 12/14/2016 UN[facility]ERSITY OF Screen 4:01 AM CDT [facility] Test Valid [facility] 12/14/2016 [facility] [place] 1:05 AM CDT [facility] BANK w Hospital Specimen 12/17/2016 12/14/2016 UN[facility]ERSITY OF Expires 1:05 AM CDT [facility] Specimen Anatomical Collection Method Collection Time Receive d Time (Source) Location / / Volume Laterality Blood specimen 12/14/2016 12:28 7 (specimen) AM CDT 12:29 AM CDT Nalini Eli MD LAB - BLOOD BANK TEST ORDER Performing Organization Address City/[facility] Phon e Number [facility] [address] [place] [address] [facility] Hepatitis B Surface Antibody (12/13/2016 9:42 PM CDT) athologist Signature Hepatitis B 0.21 <8.00 12/16/2016 [facility] OF [facility] m[IU]/mL 11:39 AM CDT [facility] Antibody [facility] Comment: Nonreactive, No antibody detect ed when the value is less than 8.00 m[IU]/mL. Specimen Anatomical Collection Method Collection Time Receive d Time (Source) Location / / Volume Laterality Blood specimen 12/13/2016 9:42 PM 017 9:43 (specimen) CDT PM CDT Erum Manzanares MD LAB - BLOOD ORDERABLES Performing Organization Address City/State/ZIP Code Phon e Number [facility] [address] Hepatitis A Antibody IgG (12/13/2016 9:42 PM CDT) [facility] Method Time Signature Hepatitis A Nonreactive NR^Nonrea 12/16/2016 UN[facility]ERSITY OF Antibody IgG ctive 11:39 AM CDT [facility] Comment: This assay cannot be used for t he diagnosis of acute HAV infection. Specimen Anatomical Collection Method Collection Time Receive d Time (Source) Location / / Volume Laterality Blood specimen 12/13/2016 9:42 PM 017 9:43 (specimen) CDT PM CDT Erum Manzanares MD LAB - BLOOD ORDERABLES Performing Organization Address City/[facility]/ZIP Code Phon e Number [facility] [address] Hepatitis B core antibody (12/13/2016 9:42 PM CDT) [facility] Method Time Signature Hepatitis B Nonreactive NR^Nonrea 12/16/2016 UNIVERSITY OF [place] Maricruz ctive 11:39 AM CDT [facility] Specimen Anatomical Collection Method Collection Time Receive d Time (Source) Location / / Volume Laterality Blood specimen 12/13/2016 9:42 PM 017 9:43 (specimen) CDT PM CDT Erum Manzanares MD LAB - BLOOD ORDERABLES Performing Organization Address City/[facility]/ZIP Code Phon e Number [facility] [address] MR (12/13/2016 2:33 PM CDT) Anatomical Region Laterality Modality Abdomen/Pelvis, SUBRAD MR BODY, UMP MR BODY Magnetic Resonance Specimen (Source) Anatomical Location Collection Method / Collectio n Time Received Time / Laterality Volume Impressions 12/13/2016 4:13 PM CDT IMPRESSION: 1. Complete placenta previa. Unable to i dentify the cervix and there are T2 dark bands posteriorly and on the right. Question placental bulging posteriorly. Constellation of fi ndings suspicious for abnormal placentation, possibly accreta. No defin ite percreta. 2. Oligohydramnios. ZARINA THOMAS MD Narrative 12/13/2016 4:13 PM CDT MR ??12/13/2016 2:06 PM ?? HISTORY: Placenta previa with 2 prior C- sections COMPARISON: Ultrasound same day FINDINGS: Incidental maternal findings: There is d isc desiccation at L3-S1. There is mild right hydronephrosis and h ydroureter, related. Incidental findings: Oligohydramni os. Cephalic lie. The placenta is posterior and on the lef t with complete placenta previa. Unable to identify the cervix. T here is mild heterogeneity throughout the placenta. There are T2 da rk bands posteriorly and on the right, near the inferior edge of the placenta. There is broad posterior placental bulging and increase d retroplacental vascularity. No evidence for hemorrhage. Procedure Note Zarina Thomas MD - 12/13/2016Forma tting of this note might be different from the original. MR 12/13/2016 2:06 PM HISTORY: Placenta previa with 2 prior C- sections COMPARISON: Ultrasound same day FINDINGS: Incidental maternal findings: There is d isc desiccation at L3-S1. There is mild right hydronephrosis and h ydroureter, related. Incidental findings: Oligohydramni os. Cephalic lie. The placenta is posterior and on the lef t with complete placenta previa. Unable to identify the cervix. T here is mild heterogeneity throughout the placenta. There are T2 da rk bands posteriorly and on the right, near the inferior edge of the placenta. There is broad posterior placental bulging and increase d retroplacental vascularity. No evidence for hemorrhage. IMPRESSION: 1. Complete placenta previa. Unable to i dentify the cervix and there are T2 dark bands posteriorly and on the right. Question placental bulging posteriorly. Constellation of fi ndings suspicious for abnormal placentation, possibly accreta. No defin ite percreta. 2. Oligohydramnios. ZARINA THOMAS MD Nora Vince Mohamud IMG MRI ORDERABLES Maternal US OB Limited Single/Multiple (12/12/2016 8:36 AM CDT) Anatomical Region Laterality Modality Ultrasound Specimen (Source) Anatomical Collection Method Collection Time Re ceived Time Location / / Volume Laterality 12/12/2016 7:48 AM CDT Impressions 12/12/2016 8:52 AM CDT IMPRESSION 1) Intrauterine at 27 & 6/7 we eks gestational age. 2) There is oligohydramnios consistent w ith diagnosis of PPROM. 3) The cervix is shortened at 18.5 mm, b ut appears closed. 4) There is a complete (posterior) place nta previa. Placental lakes are noted, however the placental-myometrial interface appears normal. Narrative 12/12/2016 8:52 AM CDT Cx TV Pat. Name: DEANN KING Study Date: 7:48am Pat. NO: [id number] Referring ??MD: CHRIST LOZADA Site: [facility] Bank Runner: Jay Lu : 1980 Age: 36 INDICATION Premature Rupture of Membranes ( PPROM), Complete Previa. [facility] ANTEPARTUM inpatient exam, Transabd ominal and transvaginal ultrasound examination. View: Sufficient. Espinoza . Number of fetuses: 1. DATING ? Date ?Details ?Gest. age ?JEAN MARIE External assessment ? 017 ?GA: 6 w + 2 d ? 27 w + 6 d ? 03/07/2017 Assigned dating ?Dating performed on 10/31/2016, based on the external assessment (on 07/14/2016) ? 27 w + 6 d ? 03/07/2017 GENERAL EVALUATION Cardiac activity: present. FHR 153 bpm. movements: visualized. Presentation: cephalic. Placenta: Placental site: posterior, left, complet e previa. Umbilical cord: Cord vessels: previously studied. Amniotic fluid: Amount of AF: Oligohydra mnios. MVP 1.0 cm. MARCELLA 1.0 cm. Q1 0.0 cm, Q2 0.0 cm, Q3 0.0 cm, Q4 1.0 cm. ANATOMY Gender: male. MATERNAL STRUCTURES Cervix ?Normal, Appears closed. ? Approach - Transvaginal: Cervical length 18.5 mm. RECOMMENDATION Thank-you for referring your hospitalize d patient to assess amniotic fluid and placental position due to placenta previa. She is hospitalized with PPROM. I discussed the findings on today's ultrasound with the patient. The patient was escorted back to her hos pital room at the end of the ultrasound. Please see [facility] for further documentation regarding plan of care. If you have questions regarding today's evaluation or if we can be of further service, please contact the [facility]. anomalies may be present but not detected. Procedure Note CrossNora MD - 12/12/2016For matting of this note might be different from the original. Cx TV Pat. Name:Elizabeth KING Date:12/12 7:48am Pat. NO: [id number] :CHRIST BHAT ON [facility]Yesenia Sen RDMS :1980Age:36 INDICATION Premature Rupture of Membranes ( PPROM), Complete Previa. [facility] ANTEPARTUM inpatient exam, Transabd ominal and transvaginal ultrasound examination. View: Sufficient. Espinoza . Number of fetuses: 1. DATING Date Details Gest. age JEAN MARIE External assessment 07/14/2016 GA: 6 w + 2 d 27 w + 6 d 03/07/2017 Assigned dating Dating performed on 10/18, based on the external assessment (on 07/14/2016) 27 w + 6 d 03/07/2017 GENERAL EVALUATION Cardiac activity: present. FHR 153 bpm. movements: visualized. Presentation: cephalic. Placenta: Placental site: posterior, left, complet e previa. Umbilical cord: Cord vessels: previously studied. Amniotic fluid: Amount of AF: Oligohydra mnios. MVP 1.0 cm. MARCELLA 1.0 cm. Q1 0.0 cm, Q2 0.0 cm, Q3 0.0 cm, Q4 1.0 cm. ANATOMY Gender: male. MATERNAL STRUCTURES Cervix Normal, Appears closed. Approach - Transvaginal: Cervical lengt h 18.5 mm. RECOMMENDATION Thank-you for referring your hospitalize d patient to assess amniotic fluid and placental position due to placenta previa. She is hospitalized with PPROM. I discussed the findings on today's ultrasound with the patient. The patient was escorted back to her hos pital room at the end of the ultrasound. Please see [facility] for further documentation regarding plan of care. If you have questions regarding today's evaluation or if we can be of further service, please contact the [facility]. anomalies may be present but not detected. IMPRESSION 1) Intrauterine at 27 & 6/7 we eks gestational age. 2) There is oligohydramnios consistent w ith diagnosis of PPROM. 3) The cervix is shortened at 18.5 mm, b ut appears closed. 4) There is a complete (posterior) place nta previa. Placental lakes are noted, however the placental-myometrial interface appears normal. Nora Mohamud [facility] US ORDERABLES ABO/Rh type and screen (12/11/2016 9:05 AM CDT) [facility] Method Time Signature ABO B 12/11/2016 [facility] 10:14 AM CDT [facility] RH(D) Pos [facility] Antibody Neg 12/11/2016 UNIVERSITY OF Screen 10:14 AM CDT [facility] Test Valid [facility] 12/11/2016 [facility] [place] 9:21 AM CDT [facility] BANK w Hospital Specimen 12/14/2016 12/11/2016 UNIVERSITY OF Expires 9:21 AM CDT [facility] Specimen Anatomical Collection Method Collection Time Receive d Time (Source) Location / / Volume Laterality Blood specimen 12/11/2016 9:05 AM 017 9:06 (specimen) CDT AM CDT Nalini Eli MD LAB - BLOOD BANK TEST ORDER Performing Organization Address City/State/ZIP Code Phon e Number [facility] [address] [place] [address] [facility] Echocardiogram Complete (12/10/2016 9:05 AM CDT) Anatomical Region Laterality Modality Echocardiography Specimen (Source) Anatomical Collection Method Collection Time Re ceived Time Location / / Volume Laterality 12/10/2016 8:00 AM CDT Narrative 12/10/2016 9:23 AM CDT [id number]^CROSS^NORA^VINCE ?Study ID: [id number] ?[facility] ?[facility] ?[address] ?[place] [address] ? Echocardiogram __ Name: DEANN KING Study Date: 12/10/2016 08:00 AM ? Patient Location: [facility] Gender: Female ?Patient Class: Inpatient : 1980 ? Age: 36 yrs Ordering Provider: NORA MOHAMUD Performed By: Krys Servin RDCS Reading Physician: Brice Lloyd MD Reason For Study: Other, Please Specify in Comments Data: Number of fetuses: This is a espinoza gestation. Due date: 03/07/2017. Gestational age: 27w4d. Deli very at: [place]. Specific Indication: echocar diogram performed for family history of congenital heart disease. __ CONCLUSIONS Technically challenging study. Likely no rmal echocardiogram. Normal cardiac anatomy. Normal intr acardiac connections. Normal right and left ventricular size and function. Like ly normal distal aortic arch without indirect evidence for coarctation. At le ast one rightward pulmonary vein enters the left atrium; leftward pulmona ry veins not well seen; normal symmetric ventricles. No effusion. The results of the echocardiogram were explained. Although this was a technically difficult study, the patient is aware that no obvious cardiac abnormalities were identified. She is aw are of the general limitations of echocardiography. __ Technical Information: A complete two dimensional, MMODE, spect ral and color Doppler echocardiogram is performed. The study q uality is poor. Difficult study due to poor imaging windows. position and segmental anatomy: The fetus in vertex position. The heart is in left chest. The cardiac apex points towards the left. There is normal atrial arrangement, with concordant atrioventricular and ventriculoarterial connections. The abdominal aorta is to the left of the spine. There is a left s ided stomach. Systemic and pulmonary veins: The systemic venous return is normal. At least one right and one left pulmonary veins are seen returning to th e left atrium. Atria and atrial septum: Normal right atrial size. The left atriu m is normal in size. The flap of the foramen ovale opens in to the left atriu m. There is laminar [id number] shunting across the foramen ovale. Atrioventricular valves: The tricuspid valve is normal in appeara nce and motion. There is no tricuspid insufficiency. The mitral valve is musa l in appearance and motion. There is no mitral valve insufficiency. Ventricles and ventricular septum: Normal right ventricular size. Normal ri ght ventricular systolic function. Normal left ventricular size. Normal lef t ventricular systolic function. No obvious ventricular level shunting. Outflows tracts: Normal great artery relationship. The ri ght ventricular outflow tract is normal in caliber. The pulmonary valve h as normal appearance and motion. There is normal flow across the pulmonary valv e. There is unobstructed flow through the left ventricular outflow tract. The aortic valve has normal appearance and motion. There is normal flow across the aortic valve. Great arteries: The main pulmonary artery has normal denisa earance. There is unobstructed flow in the main pulmonary artery. The pulmonary artery bifurcation is normal. There is unobstructed flow in both branch pulm onary arteries. The ductus arteriosus has normal appearance with normal antegr jimena flow. There is unobstructed antegrade flow in the ascending aorta. T he aortic arch appears normal. There is unobstructed antegrade flow in the ao rtic arch. Effusions and extracardiac findings: No pericardial effusion. No hydrops. cardiac rhythm: heart rate is regular at 155 bpm. Doppler: There is normal flow in the ductus venos us, umbilical artery and umbilical vein. biometry: Head circumference: 22.56 cm. Biparietal diameter: 6.47 cm. Estimated gestational age by biparietal diameter: 26w1d. Estimated gestational age by femur lengt h: 4.30. Femur length: 24w0d cm. echocardiography cannot rule out s mall atrial or ventricular septal defects, persistent ductus arteriosus, m ild coarctation of the aorta, partial anomalous pulmonary venous return, minor anatomic valve anomalies or coronary artery anomalies. __ Reading Physician: ?rBice Tinsley se, MD 12/10/2016 09:23 AM Procedure Note Brice Lloyd MD - [phone] [id number] [facility] [id number]^CADE^NORA^VINCE Study ID: [id number] [facility] [address] [address] Echocardiogram __ Name: DEANN KING Study Date: 12/10/2016 08:00 AM Patient Location: [facility] Gender: Female Patient Class: Inpatient : 1980 Age: 36 yrs Ordering Provider: NORA MOHAMUD Performed By: Krys Servin RDCS Reading Physician: Brice Lloyd MD Reason For Study: Other, Please Specify in Comments Data: Number of fetuses: This is a espinoza gestation. Due date: 03/07/2017. Gestational age: 27w4d. Deli very at: [place]. Specific Indication: echocar diogram performed for family history of congenital heart disease. __ CONCLUSIONS Technically challenging study. Likely no rmal echocardiogram. Normal cardiac anatomy. Normal intr acardiac connections. Normal right and left ventricular size and function. Like ly normal distal aortic arch without indirect evidence for coarctation. At le ast one rightward pulmonary vein enters the left atrium; leftward pulmona ry veins not well seen; normal symmetric ventricles. No effusion. The results of the echocardiogram were explained. Although this was a technically difficult study, the patient is aware that no obvious cardiac abnormalities were identified. She is aw are of the general limitations of echocardiography. __ Technical Information: A complete two dimensional, MMODE, spect ral and color Doppler echocardiogram is performed. The study q uality is poor. Difficult study due to poor imaging windows. position and segmental anatomy: The fetus in vertex position. The heart is in left chest. The cardiac apex points towards the left. There is normal atrial arrangement, with concordant atrioventricular and ventriculoarterial connections. The abdominal aorta is to the left of the spine. There is a left s ided stomach. Systemic and pulmonary veins: The systemic venous return is normal. At least one right and one left pulmonary veins are seen returning to th e left atrium. Atria and atrial septum: Normal right atrial size. The left atriu m is normal in size. The flap of the foramen ovale opens in to the left atriu m. There is laminar [id number] shunting across the foramen ovale. Atrioventricular valves: The tricuspid valve is normal in appeara nce and motion. There is no tricuspid insufficiency. The mitral valve is musa l in appearance and motion. There is no mitral valve insufficiency. Ventricles and ventricular septum: Normal right ventricular size. Normal ri ght ventricular systolic function. Normal left ventricular size. Normal lef t ventricular systolic function. No obvious ventricular level shunting. Outflows tracts: Normal great artery relationship. The ri ght ventricular outflow tract is normal in caliber. The pulmonary valve h as normal appearance and motion. There is normal flow across the pulmonary valv e. There is unobstructed flow through the left ventricular outflow tract. The aortic valve has normal appearance and motion. There is normal flow across the aortic valve. Great arteries: The main pulmonary artery has normal denisa earance. There is unobstructed flow in the main pulmonary artery. The pulmonary artery bifurcation is normal. There is unobstructed flow in both branch pulm onary arteries. The ductus arteriosus has normal appearance with normal antegr jimena flow. There is unobstructed antegrade flow in the ascending aorta. T he aortic arch appears normal. There is unobstructed antegrade flow in the ao rtic arch. Effusions and extracardiac findings: No pericardial effusion. No hydrops. cardiac rhythm: heart rate is regular at 155 bpm. Doppler: There is normal flow in the ductus venos us, umbilical artery and umbilical vein. biometry: Head circumference: 22.56 cm. Biparietal diameter: 6.47 cm. Estimated gestational age by biparietal diameter: 26w1d. Estimated gestational age by femur lengt h: 4.30. Femur length: 24w0d cm. echocardiography cannot rule out s mall atrial or ventricular septal defects, persistent ductus arteriosus, m ild coarctation of the aorta, partial anomalous pulmonary venous return, minor anatomic valve anomalies or coronary artery anomalies. __ Reading Physician: Brice Lloyd MD 12/10/2016 09:23 AM Nora NIETO PEDS ECHO ORDERABLES Maternal US Comprehensive Single F/U (12/08/2016 9:52 AM CDT) Anatomical Region Laterality Modality Ultrasound Specimen (Source) Anatomical Collection Method Collection Time Re ceived Time Location / / Volume Laterality 12/08/2016 9:10 AM CDT Impressions 12/08/2016 11:30 AM CDT IMPRESSION 1) Intrauterine at 27+2 weeks gestational age. 2) None of the anomalies commonly detect ed by ultrasound were evident in the limited anatomic survey described above. 3) Growth parameters and estimated weight were consistent with an appropriate for gestation age pattern of growth, except FL at the 5%tile. 4) Oligohydramnios consistent with clini ponce PPROM. 5) Complete placenta previa. 6) BPP 6/8, off for MARCELLA consistent with PPROM. Narrative 12/08/2016 11:30 AM CDT Comp Follow Up Pat. Name: DEANN KING Study Date: 9:10am Pat. NO: [id number] Referring ??: CHRIST LOZADA Site: [facility] Bank Runner: Jay Lu : 1980 Age: 36 INDICATION Premature Rupture of Membranes ( PPROM) Complete previa. METHOD Transabdominal ultrasound examination, [facility] inpatient exam. View: Suboptimal view: limited by maternal body habitus. Suboptimal view: limited by low amniotic fluid volume. Espinoza . Number of fetuses: 1. DATING ? Date ?Details ?Gest. age ?JEAN MARIE External assessment ?5/28/2 017 ?GA: 6 w + 2 d ? 27 w + 2 d ? 03/07/2017 U/S ? 12/08/2016 ? based upon AC, BPD, Femur, HC ?26 w + 4 d ? 03/12/2017 Assigned dating ?Dating performed on 10/31/2016, based on the external assessment (on 07/14/2016) ? 27 w + 2 d ? 03/07/2017 GENERAL EVALUATION Cardiac activity: present. FHR 145 bpm. movements: visualized. Presentation: tranverse with head to mat ernal left. Placenta: Placental site: posterior, left, complet e previa. Umbilical cord: 3 vessel cord. Amniotic fluid: Amount of AF: Oligohydra mnios. MVP 1.9 cm. MARCELLA 4.3 cm. Q1 0.0 cm, Q2 1.9 cm, Q3 0.9 cm, Q4 1.5 cm. BIOMETRY Main Biometry: BPD ? 66.4 ?mm ? 26w 5d ? Hadlock OFD ? 87.3 ?mm ? 26w 1d ? Nicolaides HC ?246.7 ?mm ?26w 6d ? Hadlock AC ?225.5 ?mm ?27w 0d ? Hadlock Femur ? 47.1 ?mm ?25w 5d ? Hadlock Humerus ? 42.7 ?mm ? 25w 4d ?Pauly Weight Calculation: EFW ? 943 ? g ? 37% ? Gildardo EFW (lb,oz) ? 2 lb 1 ?oz Calculated by ?Hadlock ([id number]) Head / Face / Neck Biometry: Manufacturing Cost Estimator ?3.9 ?mm ? Amniotic Fluid / FHR: AF MVP ?1.9 ? cm ? MARCELLA ? 4.3 ?cm ? FHR ?145 ? bpm ? ANATOMY The following structures were visualized : Head / Neck ? Cranium. Head size. Head shape. Lateral ventricles. Midline falx. Thalami. Face ? Profile. Heart / Thorax ?4-chamber view. Abdomen ? Stomach: Stomach size and situs appear normal. Kidneys. Bladder: Bladder appears normal in size and shape. The following structures were documented previously: Head / Neck ? Cavum septi pellucidi. Cisterna magna. Heart / Thorax ?RVOT. LVOT. Abdomen ? Abdominal wall. Spine / Skelet. ? Cervical spine. Thoracic spine. Lumbar spine. Sacral spine. Gender: male. BIOPHYSICAL PROFILE 2: breathing movements 2: Gross body movements 2: tone 2: Amniotic fluid volume 09/24: Biophysical profile score MATERNAL STRUCTURES Cervix ?Not examined. Right Ovary ?Not examined. Left Ovary ?Not examined. RECOMMENDATION We discussed the findings on today's ult rasound with the patient. surveillance with twice-weekly BPPs is recommended to begin with a repeat growth ultrasound in 3 weeks. Thank-you for the opportunity to partici isabel in the care of this patient. If you have questions regarding today's evaluation or if we can be of further service, please contact the [facility]. anomalies may be present but not detected. Procedure Note Italia Galarza DO - 12/08/2016Format ting of this note might be different from the original. Comp Follow Up Pat. Name:Elizabeth KING Date:12/08 9:10am Pat. NO: [id number] MD:CHRIST BHAT ON [facility] RDMS :1980Age:36 INDICATION Premature Rupture of Membranes ( PPROM) Complete previa. METHOD Transabdominal ultrasound examination, [facility] inpatient exam. View: Suboptimal view: limited by maternal body habitus. Suboptimal view: limited by low amniotic fluid volume. Espinoza . Number of fetuses: 1. DATING Date Details Gest. age JEAN MARIE External assessment 07/14/2016 GA: 6 w + 2 d 27 w + 2 d 03/07/2017 U/S 12/08/2016 based upon AC, BPD, Femur , HC 26 w + 4 d 03/12/2017 Assigned dating Dating performed on 10/18, based on the external assessment (on 07/14/2016) 27 w + 2 d 03/07/2017 GENERAL EVALUATION Cardiac activity: present. FHR 145 bpm. movements: visualized. Presentation: tranverse with head to mat ernal left. Placenta: Placental site: posterior, left, complet e previa. Umbilical cord: 3 vessel cord. Amniotic fluid: Amount of AF: Oligohydra mnios. MVP 1.9 cm. MARCELLA 4.3 cm. Q1 0.0 cm, Q2 1.9 cm, Q3 0.9 cm, Q4 1.5 cm. BIOMETRY Main Biometry: BPD 66.4 mm 26w 5d Hadlock OFD 87.3 mm 26w 1d Nicolaides HC 246.7 mm 26w 6d Hadlock AC 225.5 mm 27w 0d Hadlock Femur 47.1 mm 25w 5d Hadlock Humerus 42.7 mm 25w 4d Pauly Weight Calculation: EFW 943 g 37% Gildardo EFW (lb,oz) 2 lb 1 oz Calculated by Flora ([id number]) Head / Face / Neck Biometry: Manufacturing Cost Estimator 3.9 mm Amniotic Fluid / FHR: AF MVP 1.9 cm MARCELLA 4.3 cm FHR 145 bpm ANATOMY The following structures were visualized : Head / Neck Cranium. Head size. Head sha pe. Lateral ventricles. Midline falx. Thalami. Face Profile. Heart / Thorax 4-chamber view. Abdomen Stomach: Stomach size and situs appear normal. Kidneys. Bladder: Bladder appears normal in size and shape. The following structures were documented previously: Head / Neck Cavum septi pellucidi. Ciste rna magna. Heart / Thorax RVOT. LVOT. Abdomen Abdominal wall. Spine / Skelet. Cervical spine. Thoracic spine. Lumbar spine. Sacral spine. Gender: male. BIOPHYSICAL PROFILE 2: breathing movements 2: Gross body movements 2: tone 2: Amniotic fluid volume 09/24: Biophysical profile score MATERNAL STRUCTURES Cervix Not examined. Right Ovary Not examined. Left Ovary Not examined. RECOMMENDATION We discussed the findings on today's ult rasound with the patient. surveillance with twice-weekly BPPs is recommended to begin with a repeat growth ultrasound in 3 weeks. Thank-you for the opportunity to partici isabel in the care of this patient. If you have questions regarding today's evaluation or if we can be of further service, please contact the [facility]. anomalies may be present but not detected. IMPRESSION 1) Intrauterine at 27+2 weeks gestational age. 2) None of the anomalies commonly detect ed by ultrasound were evident in the limited anatomic survey described above. 3) Growth parameters and estimated weight were consistent with an appropriate for gestation age pattern of growth, except FL at the 5%tile. 4) Oligohydramnios consistent with clini ponce PPROM. 5) Complete placenta previa. 6) BPP 07/25, off for MARCELLA consistent with PPROM. Rossana Barker MD [facility] US ORDERABLES Wound Culture Aerobic Bacterial (12/07/2016 6:00 PM CDT) [facility] Fios Method Time Signature Specimen Leg Wound INFECTIOUS Description DISEASE DIAGNOSTIC LABORATORY Special Specimen collected in eSwab transport (white cap) 12/08/2016 INFECTIOUS Requests Rule out MRSA 1:51 PM CDT DISEASE DIAGNOSTIC LABORATORY Culture Micro Light growth 12/09/2016 INFECTIOUS Normal skin evelina 1:34 PM CDT DISEASE DIAGNOSTIC LABORATORY Specimen (Source) Anatomical Collection Method Collection Time Re ceived Time Location / / Volume Laterality Lower limb 12/07/2016 6:00 12/07/2016 6 :21 structure (body PM CDT PM CDT structure) Comment: Wound Rossana Barker MD LAB - MICRO GENERAL ORDERABL ES Performing Organization Address City/State/ZIP Code Phon e Number INFECTIOUS DISEASES [address] [place] [address] DIAGNOSTIC LABORATORY, [facility] INFECTIOUS DISEASE [address] [place] [address], [facility] DIAGNOSTIC LABORATORY Methicillin resistant staph aureus cult (12/07/2016 6:00 PM CDT) [facility] Fios Method Time Signature Specimen Wound [facility] Description [facility] B[facility] Special Specimen 12/07/2016 [facility] Requests collected in 7:06 PM [facility]T [facility] (white cap) Culture Micro Canceled, 12/07/2016 [facility] Test credited 8:13 PM CDT [facility] B[facility] Culture Micro Test 12/07/2016 [facility] reordered as 8:13 PM CDT [facility] correct [facility] Specimen Anatomical Collection Method Collection Time Receive d Time (Source) Location / / Volume Laterality Specimen from 12/07/2016 6:00 PM 12/08/19 17 6:21 wound (specimen) CDT PM CDT Rossana Barker MD LAB - MICRO GENERAL ORDERABL ES Performing Organization Address City/[facility]/ZIP Code Phon e Number [facility] [address] [place] [address] CISNE TSH with free T4 reflex (12/07/2016 3:43 PM CDT) athologist Signature TSH 3.09 0.40 - 4.00 12/09/2016 [facility] mU/L 5:39 PM CDT [facility] Specimen Anatomical Collection Method Collection Time Receive d Time (Source) Location / / Volume Laterality 12/07/2016 3:43 PM 7 3:44 CDT PM CDT Nora Leyva MD LAB - BLOOD ORDERABLES Performing Organization Address City/[facility]/ZIP Code Phon e Number [facility] [address] [place] [address] [facility] Rubella Antibody IgG Quantitative (12/07/2016 3:43 PM CDT) Analysis Performed At Patho logist Time Signature Rubella Antibody 7 IU/mL 12/09/2016 [facility] F IgG Quantitative 11:02 AM CDT [facility] Comment: Negative Reference Range: ??Unvaccinated Negative 0-7 IU/mL Vaccinated or previous exposure Positive 10 IU/ml or greater Specimen Anatomical Collection Method Collection Time Receive d Time (Source) Location / / Volume Laterality 12/07/2016 3:43 PM 7 3:44 CDT PM CDT Nora Leyva MD LAB - BLOOD ORDERABLES Performing Organization Address City/[facility]/ZIP Code Phon e Number [facility] [address] [place] [address] [facility] (ABNORMAL) Hepatitis C RNA quantitative (12/07/2016 3:43 PM CDT) Patholo gist Method Time Signature HCV RNA Quant [id number] HCVND^HCV 12/09/2016 [place] [facility] IU/ml (A) RNA Not 12:19 PM CDT [facility] [IU]/mL BANK Comment: The LEONARDO AmpliPrep/LEONARDO TaqMan HCV Kinjal t is an FDA-approved in vitro nucleic acid amplification test for the quantita tion of HCV RNA in human plasma (ETDA plasma) or serum using the LEONARDO AmpliPr ep Instrument for automated viral nucleic acid extraction and the LEONARDO Ta qMan Analyzer or LEONARDO TaqMan for automated Real Time PCR amplification an d detection of the viral nucleic acid target. Titer results are reported in Internatio nal Units/mL (IU/mL) using the 1st WHO International standard for HCV for Nucl eic Acid Amplification based assays. Log of HCV RNA 6.9 (H) <1.2 Log IU/mL 12/09/2016 12:19 PM [facility] BANK Specimen Anatomical Collection Method Collection Time Receive d Time (Source) Location / / Volume Laterality Blood specimen 12/07/2016 3:43 PM 017 3:44 (specimen) CDT PM CDT Nora Leyva MD LAB - BLOOD ORDERABLES Performing Organization Address City/State/ZIP Code Phon e Number [facility] [address] [place], [place] [id number] [place] [address] hemoglobin stain Kleihauer (12/07/2016 3:43 PM CDT) Patholo gist Method Time Signature Kleihauer-Bet No cells seen 12/07/2016 [facility] OF ke Rhogam not required 7:22 PM CDT [facility] Patient Rh positive [facility] Test performed at [facility] BANK Specimen Anatomical Collection Method Collection Time Receive d Time (Source) Location / / Volume Laterality Blood specimen 12/07/2016 3:43 PM 017 3:45 (specimen) CDT PM CDT Nora Leyva MD LAB - BLOOD BANK TEST ORDER Performing Organization Address City/State/ZIP Code Phon e Number [facility] [address] [place] [address] [facility] Fibrinogen activity (12/07/2016 3:43 PM CDT) P athologist Signature Fibrinogen 362 200 - 420 12/07/2016 [facility] mg/dL 5:44 PM CDT [facility] Specimen Anatomical Collection Method Collection Time Receive d Time (Source) Location / / Volume Laterality Blood specimen 12/07/2016 3:43 PM 017 3:44 (specimen) CDT PM CDT Nora Leyva MD LAB - BLOOD ORDERABLES Performing Organization Address City/[facility]/ZIP Code Phon e Number [address] [address] [facility] Partial thromboplastin time (12/07/2016 3:43 PM CDT) P athologist Signature PTT 27 22 - 37 sec 12/07/2016 [facility] 5:44 PM CDT [facility] Specimen Anatomical Collection Method Collection Time Receive d Time (Source) Location / / Volume Laterality Blood specimen 12/07/2016 3:43 PM 017 3:44 (specimen) CDT PM CDT Nora Leyva MD LAB - BLOOD ORDERABLES Performing Organization Address City/[facility]/ZIP Code Phon e Number [address] [address] [facility] INR (12/07/2016 3:43 PM CDT) P athologist Signature INR 1.06 0.86 - 1.14 12/07/2016 [facility] 5:44 PM CDT [facility] Specimen Anatomical Collection Method Collection Time Receive d Time (Source) Location / / Volume Laterality Blood specimen 12/07/2016 3:43 PM 017 3:44 (specimen) CDT PM CDT Nora Leyva MD LAB - BLOOD ORDERABLES Performing Organization Address City/[facility]/ZIP [facility] Phon e Number [address] [address] [facility] (ABNORMAL) Comprehensive metabolic panel (12/07/2016 3:43 PM CDT) P athologist Signature Sodium 141 133 - 144 12/07/2016 [facility] mmol/L 4:08 PM CDT [facility] Potassium 3.4 3.4 - 5.3 12/07/2016 [facility] mmol/L 4:08 PM CDT [facility] Chloride 108 94 - 109 12/07/2016 [facility] mmol/L 4:08 PM CDT [facility] Carbon Dioxide 21 20 - 32 12/07/2016 [facility] mmol/L 4:08 PM [facility] Anion Gap 12 3 - 14 12/07/2016 [facility] mmol/L 4:08 PM [facility] Glucose 88 70 - 99 12/07/2016 [facility] mg/dL 4:08 PM [facility] Urea Nitrogen 6 (L) 7 - 30 12/07/2016 [facility] mg/dL 4:08 PM [facility] Creatinine 0.55 0.52 - 12/07/2016 [facility] 1.04 mg/dL 4:08 PM [facility] GFR Estimate >90 >60 12/07/2016 [place] [facility] mL/min/1.7 4:[address] Comment: Non GFR Calc GFR Estimate If >90 >60 mL/min/1.7m2 12/07/2016 4:08 P M [facility] Black [facility] Comment: GFR Calc Calcium 8.1 (L) 8.5 - 10.1 12/07/2016 4:08 PM [facility] mg/dL [facility] Bilirubin Total 0.4 0.2 - 1.3 12/07/2016 4:08 PM [facility] mg/dL [facility] Albumin 2.5 (L) 3.4 - 5.0 g/dL 12/07/2016 4:08 PM [facility] Protein Total 6.1 (L) 6.8 - 8.8 g/dL 12/07/2016 4:08 PM [facility] Alkaline Phosphatase 69 40 - 150 U/L 12/07/2016 4:08 PM [facility] ALT 26 0 - 50 U/L 12/07/2016 4:08 PM [facility] AST 21 0 - 45 U/L 12/07/2016 4:08 PM [facility] Specimen Anatomical Collection Method Collection Time Receive d Time (Source) Location / / Volume Laterality Blood specimen 12/07/2016 3:43 PM 017 3:44 (specimen) [facility] MD LAB - BLOOD ORDERABLES Performing Organization Address City/State/ZIP Code Phon e Number [facility] [address] [place] [address] [facility] Urine Culture Aerobic Bacterial (12/07/2016 2:55 PM CDT) Component Value Ref Test Analysis Performed At [facility] Range Method Time Signature Specimen Unspecified Urine INFECTIOUS Description DISEASE DIAGNOSTIC LABORATORY Special Specimen received 12/07/2016 [facility] in preservative 7:19 PM CDT [facility] Culture Micro >100,000 colonies/mL 12/08/2016 INFE CTIOUS mixed urogenital evelina 8:55 PM CDT [facility] SE Susceptibility testing not routinely done DIAGNOSTIC LABORATORY Specimen (Source) Anatomical Collection Method Collection Time Re ceived Time Location / / Volume Laterality Unspecified Urine 12/07/2016 2:55 017 3:51 PM CDT PM CDT Nora Leyva MD LAB - MICRO GENERAL ORDERABL ES Performing Organization Address [facility]/ZIP Code Phon e Number INFECTIOUS DISEASES [address] [place] [address] DIAGNOSTIC LABORATORY, [facility] INFECTIOUS DISEASE [address] [place] [address], [facility] DIAGNOSTIC LABORATORY [address] [address], [facility] (ABNORMAL) UA reflex to Microscopic and Culture (12/07/2016 2:55 PM CDT) [facility] Method Time Signature Color Urine Yellow 12/07/2016 [facility] 3:37 PM CDT [facility] Appearance Urine Clear 12/07/2016 [place] [facility] F 3:37 PM CDT [facility] Glucose Urine Negative NEG^Negat 12/07/2016 [facility] paula mg/dL 3:37 PM CDT [facility] Bilirubin Urine Negative NEG^Negat 12/07/2016 [facility] [place]ula 3:37 PM CDT [facility] Ketones Urine Negative NEG^Negat 12/07/2016 [facility] [place]ula mg/dL 3:37 PM CDT [facility] Specific [place] 1.015 1.003 - 12/07/2016 [place] [facility] F Urine 1.035 3:37 PM CDT [facility] Blood Urine Negative NEG^Negat 12/07/2016 [facility] [place]ula 3:37 PM CDT [facility] pH Urine 6.5 5.0 - 7.0 12/07/2016 [facility] pH 3:37 PM CDT [facility] Protein Albumin 10 (A) NEG^Negat 12/07/2016 [facility] Urine paula mg/dL 3:37 PM CDT [facility] Urobilinogen Normal 0.0 - 2.0 12/07/2016 [place] [facility] mg/dL mg/dL 3:37 PM T [facility] Nitrite Urine Negative NEG^Negat 12/07/2016 [facility] [place] 3:37 PM T [facility] Leukocyte Moderate (A) NEG^Negat 12/07/2016 [place] [facility] Esterase Urine paula 3:37 PM T [facility] Source Midstream 12/07/2016 [place] [facility] Urine 3:23 PM T [facility] RBC Urine 1 0 - 2 12/07/2016 [facility] /HPF 3:49 PM T [facility] WBC Urine 7 (H) 0 - 2 12/07/2016 [facility] /HPF 3:49 PM T [facility] Bacteria Urine Few (A) NEG^Negat 12/07/2016 [facility] pa[place] /HPF 3:49 PM T [facility] Squamous 1 0 - 1 12/07/2016 [facility] Epithelial /HPF /HPF 3:49 PM T [facility] Urine [facility] Mucous Urine Present (A) NEG^Negat 12/07/2016 [facility] pa[place] /LPF 3:49 PM [facility] Specimen (Source) Anatomical Collection Method Collection Time Re ceived Time Location / / Volume Laterality Examination of URINE SPECIMEN 12/07/2016 2:55 12/08/19 17 3:22 midstream urine OBTAINED BY CLEAN PM CDT PM CDT specimen CATCH PROCEDURE / (procedure) Unknown Nora Leyva MD LAB - URINE ORDERABLES Performing Organization Address City/State/ZIP Code Phon e Number [facility] [address] [place] [address] [facility] U OF M [facility] Drug abuse scrn 7 UR (/) (RH, SH, UR) (12/07/2016 2:55 PM CDT) [facility] Method Time Signature Amphetamine Qual Negative NEG^Negat 12/07/2016 [facility] F Urine paula 3:48 PM CDT [facility] Comment: Cutoff for a negative amphetami ne is 500 ng/mL or less. Cannabinoids Qual Negative NEG^Negative 12/07/2016 3:48 PM [facility] Urine [facility] Comment: Cutoff for a negative cannabino id is 50 ng/mL or less. Cocaine Qual Urine Negative NEG^Negative 12/07/2016 3:48 PM [facility] Comment: Cutoff for a negative cocaine i s 300 ng/mL or less. Opiates Qualitative Negative NEG^Negative 12/07/2016 3:48 P M [facility] Urine [facility] Comment: Cutoff for a negative opiate is 300 ng/mL or less. Pcp Qual Urine Negative NEG^Negative 12/07/2016 3:[address] [facility] Comment: Cutoff for a negative PCP is 25 ng/mL or less. Specimen Anatomical Collection Method Collection Time Receive d Time (Source) Location / / Volume Laterality Urine specimen URINE SPECIMEN 12/07/2016 2:55 PM 12/07 3:22 (specimen) OBTAINED BY CLEAN CDT PM CDT CATCH PROCEDURE / Unknown Nora Leyva MD LAB - URINE ORDERABLES Performing Organization Address City/State/ZIP Code Phon e Number [facility] [address] [place] [address] [facility] Chlamydia trachomatis PCR (12/07/2016 2:54 PM CDT) [facility] gist Method Time Signature Specimen Vagina 12/07/2016 [facility] Description 3:13 PM CDT [facility] Chlamydia Negative NEG^Negat 12/08/2016 [facility] Trachomatis PCR [place]ula 1:55 PM CDT [facility] Comment: Negative for C. trachomatis rRNA by prescott scription mediated amplification. A negative result by hardware technician media kris amplification does not preclude the presence of C. trachomatis infection because results are dependent on proper and adequate collection, absence of inhibitors, and sufficient rRNA to be detected. Specimen Anatomical Collection Method Collection Time Receive d Time (Source) Location / / Volume Laterality Specimen from 12/07/2016 2:54 PM 12/08/19 17 3:13 vagina CDT PM CDT (specimen) Nora Leyva MD LAB - MICRO GENERAL ORDERABL ES Performing Organization Address [facility] Phon e Number [facility] [address] [place] [id number] [place] [address] Neisseria gonorrhoeae PCR (12/07/2016 2:54 PM CDT) Analysis Performed At Patho logist Time Signature Specimen Vagina 12/07/2016 [facility] OF Descrip 3:13 PM CDT [facility] N Gonorrhea Negative NEG^Negati 12/08/2016 [facility] OF PCR ve 1:55 PM CDT [facility] Comment: Negative for N. gonorrhoeae rRNA by prescott scription mediated amplification. A negative result by hardware technician media kris amplification does not preclude the presence of N. gonorrhoeae infection because results are dependent on proper and adequate collection, absence of inhibitors, and sufficient rRNA to be detected. Specimen Anatomical Collection Method Collection Time Receive d Time (Source) Location / / Volume Laterality Specimen from 12/07/2016 2:54 PM 12/08/19 17 3:13 vagina CDT PM CDT (specimen) Nora Leyva MD LAB - MICRO GENERAL ORDERABL ES Performing Organization Address [facility] Phon e Number [facility] [address] [place], [place] [id number] [place] [id number] [place] [address] Wet prep (12/07/2016 2:54 PM CDT) Component Value Ref Test Analysis Performed At Patholo gist Range Method Time Signature Specimen Vagina [facility] Description [facility] Wet Prep No Trichomonas 12/07/2016 [facility] seen 3:34 PM CDT [facility] Wet Prep No yeast seen 12/07/2016 [facility] 3:34 PM CDT [facility] Wet Prep Moderate 12/07/2016 [facility] PMNs seen 3:34 PM CDT [facility] Wet Prep No clue cells 12/07/2016 [facility] seen 3:34 PM CDT [facility] Specimen Anatomical Collection Method Collection Time Receive d Time (Source) Location / / Volume Laterality Specimen from 12/07/2016 2:54 PM 12/08/19 17 3:10 vagina CDT PM CDT (specimen) Nroa Leyva MD LAB - MICRO GENERAL ORDERABL ES Performing Organization Address City/State/ZIP Code Phon e Number [address] [id number] [facility] [place] Group B strep PCR (12/07/2016 2:54 PM CDT) [facility] Method Time Signature Group B Strep Vaginal 12/07/2016 [facility] PCR Spec Valdemar Rectal 2:58 PM CDT [facility] Group B Strep Positive (A) NEG^Negat 12/08/2016 [facility] F PCR paula 1:27 PM CDT [facility] Comment: Positive: GBS DNA detected, presumed pos itive for GBS. Assay performed on incubated broth cultu re of specimen using [facility] real-time PCR. Specimen Anatomical Collection Method Collection Time Receive d Time (Source) Location / / Volume Laterality Vaginal Rectal 12/07/2016 2:54 PM 017 3:14 CDT PM CDT Nora Leyva MD LAB - MICRO GENERAL ORDERABL ES Performing Organization Address City/[facility]/ZIP Code Phon e Number [facility] [address] [place] [address] [address] [facility] [place] ABO/Rh type and screen (12/07/2016 2:41 PM CDT) [facility] Method Time Signature ABO B 12/07/2016 [facility] 6:08 PM CDT [facility] RH(D) Pos [facility] Antibody Neg 12/07/2016 [facility] Screen 6:08 PM CDT [facility] Test Valid University 12/07/2016 [facility] Only [facility] [place] 5:31 PM CDT [facility] [facility] Specimen 12/10/2016 12/07/2016 [facility] Expires 5:31 PM CDT [facility] Specimen Anatomical Collection Method Collection Time Receive d Time (Source) Location / / Volume Laterality Blood specimen 12/07/2016 2:41 PM 017 2:44 (specimen) CDT PM CDT Rossana Barker MD LAB - BLOOD BANK TEST ORDER Performing Organization Address City/[facility]/ZIP Code Phon e Number [address] [place] [address] [facility] [place] CBC with platelets (12/07/2016 2:41 PM CDT) [facility] Method Time Signature WBC 8.4 4.0 - 11.0 12/07/2016 [facility] 10e9/L 2:47 PM CDT [facility] RBC Count 3.10 (L) 3.8 - 5.2 12/07/2016 [facility] 10e12/L 2:47 PM CDT [facility] Hemoglobin 9.4 (L) 11.7 - 12/07/2016 [facility] 15.7 g/dL 2:47 PM CDT [facility] Hematocrit 28.2 (L) 35.0 - 12/07/2016 [facility] 47.0 % 2:47 PM CDT [facility] MCV 91 78 - 100 12/07/2016 [facility] fl 2:47 PM CDT [facility] MCH 30.3 26.5 - 12/07/2016 [facility] 33.0 pg 2:47 PM CDT [facility] MCHC 33.3 31.5 - 12/07/2016 [facility] 36.5 g/dL 2:47 PM CDT [facility] RDW 17.1 (H) 10.0 - 12/07/2016 [facility] 15.0 % 2:47 PM CDT [facility] Platelet Count 185 150 - 450 12/07/2016 [facility] 10e9/L 2:47 PM CDT [facility] Specimen Anatomical Collection Method Collection Time Receive d Time (Source) Location / / Volume Laterality Blood specimen 12/07/2016 2:41 PM 017 2:42 (specimen) CDT PM CDT Rossana Barker MD LAB - BLOOD ORDERABLES Performing Organization Address City/State/ZIP Code Phon e Number [address] [address] [facility] [place] Referral sensitivity (12/07/2016 1:27 PM CDT) Component Value Ref Test Analysis Performed At [facility] Range Method Time Signature Specimen Vaginal Rectal INFECTIOUS Description DISEASE DIAGNOSTIC LABORATORY Culture Micro Beta hemolytic Streptococcus group B 12/12/2016 INFECTIOUS isolated 9:32 AM CDT DISEASE (A) DIAGNOSTIC LABORATORY Specimen Anatomical Collection Method Collection Time Receive d Time (Source) Location / / Volume Laterality Vaginal Rectal 12/07/2016 1:27 PM 017 1:39 CDT PM CDT Organism Antibiotic Method Susceptibility Streptococcus Group B Ampicillin GINETTE 0.12 ug/mL : Susceptible Streptococcus Group B Penicillin GINETTE 0.06 ug/mL : Susceptible Streptococcus Group B Vancomycin GINETTE 0.5 ug/mL: Susceptible Streptococcus Group B Cefotaxime GINETTE <=0.25 ug/ mL: Susceptible Streptococcus Group B Ceftriaxone GINETTE <=0.25 ug/ mL: Susceptible Streptococcus Group B Clindamycin GINETTE <=0.06 ug/ mL: Susceptible Nora Leyva MD LAB - MICRO GENERAL ORDERABL ES Performing Organization Address City/State/ZIP Code Phon e Number INFECTIOUS DISEASES [address] [place] [address] DIAGNOSTIC LABORATORY, [facility] INFECTIOUS DISEASE [address] [place] [address], [facility] DIAGNOSTIC LABORATORY documented in this encounter Visit Diagnoses Diagnosis Chronic hepatitis C without hepatic coma (H) - Primary Placenta accreta in third trimester Retained placenta without hemorrhage, un specified as to episode of care S/P emergency hysterectomy 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 Dental caries Unspecified dental caries S/P laparotomy Other postprocedural status premature rupture of membranes ( PPROM) delivered, current hospitalization Premature rupture of membranes in pregna ncy, delivered documented in this encounter Administered Medications Inactive Administered Medications - up to 3 most recent administrations Medication Order MAR Action Action Date Dose Rate Site acetaminophen (TYLENOL) tablet 650 Given 12/24/2016 7:52 AM COST ESTIMATOR 650 mg mg 650 mg, Oral, EVERY 6 HOURS PRN, mild pain, fever, Starting on 12/08/16 at 0223, Maximum acetaminophen dose from all sources = 75 mg/kg/day not to exceed 4 grams/day. Given 12/23/2016 8:03 AM COST ESTIMATOR 650 mg Given 12/22/2016 7:05 PM COST ESTIMATOR 650 mg acetaminophen (TYLENOL) tablet 975 mg Given 12/27/2016 12:40 PM COST ESTIMATOR 975 mg 975 mg, Oral, EVERY 8 HOURS, First dose on Fri12/25/16 at 0000, For 3 days, Do not use if patient has an active opioid/acetaminophen analgesic order for pain Maximum acetaminophen dose from all sources = 75 mg/kg/day not to exceed 4 grams/day., Post-procedure Given 12/27/2016 2:07 AM COST ESTIMATOR 975 mg Given 12/26/2016 6:00 PM COST ESTIMATOR 975 mg amoxicillin (AMOXIL) capsule 250 mg Given 12/14/2016 8:15 AM CDT 250 mg Routine, 250 mg, Oral, 3 TIMES DAILY, First dose on 12/09/16 at 1515, For 5 days, To be given AFTER ampicillin 2 grams IV Q6H x 48 hours, Indications: premature rupture of membranes Given 12/13/2016 8:16 PM CDT 250 mg Given 12/13/2016 1:27 PM CDT 250 mg ampicillin (OMNIPEN) 2 g vial to attach to NS New Bag 11:15 AM CDT 2 g 100 ml bag Routine, 2 g, Intravenous, EVERY 6 HOURS, First dose on 12/07/16 at 1515, For 48 hours, THEN give amoxicillin 250 mg PO TID x 5 days, Indications: premature rupture of membranes New Bag 12/09/2016 4:48 AM CDT 2 g 400 mL/hr New Bag 12/08/2016 10:45 PM CDT 2 g azithromycin (ZITHROMAX) tablet 1,000 mg Given 12/07/2016 4:45 PM CDT 1,000 mg Routine, 1,000 mg, Oral, ONCE, On 12/07/16 at 1515, For 1 dose, THEN give azithromycin 250 mg PO daily x 6 days, Indications: premature rupture of membranes azithromycin (ZITHROMAX) tablet 250 mg Given 12/13/2016 8:31 AM CDT 250 mg Routine, 250 mg, Oral, DAILY, First dose on 12/08/16 at 1515, For 6 days, To be given AFTER azithromycin 1 gm PO x 1, Indications: premature rupture of membranes Given 12/12/2016 8:26 AM CDT 250 mg Given 12/11/2016 8:34 AM CDT 250 mg bacitracin ointment Given 12/27/2016 8:12 AM COST ESTIMATOR Topical, 3 TIMES DAILY, First dose on 12/22/16 at 1400, Apply to areas of picking. Given 12/25/2016 1:01 PM COST ESTIMATOR Given 12/24/2016 7:56 AM COST ESTIMATOR benzocaine (ORAJEL MAXIMUM STRENGTH) 20 % gel Given 12/24/2016 9:19 AM COST ESTIMATOR Mouth/Throat, 4 TIMES DAILY PRN, moderate pain (4-6), Starting on Fri12/23/16 at 0935, Apply to side of tongue near sore betamethasone acet & sod phos (CELESTONE) Given 12/08/2016 3:06 PM CDT 12 mg injection 12 mg 12 mg, Intramuscular, EVERY 24 HOURS, First dose on Fri12/07/16 at 1515, For 2 doses Given 12/07/2016 3:32 PM CDT 12 mg bisacodyl (DULCOLAX) Suppository 10 mg Given 12/25/2016 9:53 PM COST ESTIMATOR 10 mg 10 mg, Rectal, DAILY PRN, constipation, Starting on Fri12/25/16 at 2148, Start POD 2, Post-procedure buprenorphine (SUBUTEX) sublingual table t 2 mg Given 12/27/2016 8:10 AM COST ESTIMATOR 2 mg 2 mg, Sublingual, 5 TIMES DAILY, First dose on Fri12/07/16 at 1545 Given 12/27/2016 4:06 AM COST ESTIMATOR 2 mg Given 12/26/2016 10:38 PM COST ESTIMATOR 2 mg buPROPion (WELLBUTRIN SR) 12 hr tablet 1 50 mg Given 12/27/2016 8:10 AM COST ESTIMATOR 150 mg 150 mg, Oral, DAILY, First dose on Fri12/17/16 at 0800, DO NOT CRUSH. Given 12/26/2016 8:23 AM COST ESTIMATOR 150 mg Given 12/25/2016 7:52 AM COST ESTIMATOR 150 mg carbamide peroxide (DEBROX) 6.5 % otic Given 12/23/2016 8:16 PM COST ESTIMATOR 3 drops solution 3 drop 3 drop, Right Ear, 2 TIMES DAILY, First dose on Fri12/17/16 at 2000 Given 12/23/2016 8:49 AM COST ESTIMATOR 3 drops Given 12/22/2016 7:52 PM COST ESTIMATOR 3 drops clindamycin (CLEOCIN) infusion 900 New Bag 12/25/2016 1:32 PM COST ESTIMATOR 900 mg 50 mL/hr mg Routine, 900 mg, Intravenous, EVERY 8 HOURS, First dose on Fri12/25/16 at 0430, For 24 hours, Indications: Perioperative Pharmacoprophylaxis New Bag 12/25/2016 6:19 AM COST ESTIMATOR 900 mg 50 mL/hr cyclobenzaprine (FLEXERIL) tablet 10 mg Given 12/23/2016 10:10 PM COST ESTIMATOR 10 mg 10 mg, Oral, AT BEDTIME PRN, muscle spasms, Starting on 12/09/16 at 2342 Given 12/22/2016 11:17 PM COST ESTIMATOR 10 mg Given 12/21/2016 10:15 PM CDT 10 mg diphenhydrAMINE (BENADRYL) capsule 25 mg Given 12/25/2016 7:23 PM COST ESTIMATOR 25 mg 25 mg, Oral, EVERY 6 HOURS PRN, itching, Starting on Fri12/25/16 at 0352, Post-procedure diphenhydrAMINE (BENADRYL) injection 25 mg 25 mg, Intravenous, EVERY 6 HOURS PRN, i tching, Give IV only if unable to take PO, Administer over 1-2 Minutes, Starting on Fri12/25/16 at 0352, For ordered doses up to 50 mg, give IV Push undiluted. Give e ach 25mg over a minimum of 1 minute. Extend in non-emergency, Post-procedure emollient (VANICREAM) cream Given 12/24/2016 9:19 AM COST ESTIMATOR Topical, EVERY 2 HOURS PRN, other, area of dry skin, Starting on Fri12/15/16 at 1239, Apply to areas of dry skin fentaNYL (PF) (SUBLIMAZE) injection 50 m cg Given 12/25/2016 1:03 AM COST ESTIMATOR 50 mcg 50 mcg, Intravenous, EVERY 2 MIN PRN, other, acute pain while in PACU., Starting on Fri12/25/16 at 0005, MAX cumulative dose = 250 mcg. Use Fentanyl initially, as a short acting agent for acute pain control. If insufficient, or a longer acting agent is needed, begin Morphine or Hydromorphone if ordered. Give IV Push undiluted over a minimum of 3-5 minutes up to 100 mcg., PACU Given 12/25/2016 12:48 AM COST ESTIMATOR 50 mcg Given 12/25/2016 12:26 AM COST ESTIMATOR 50 mcg fluconazole (DIFLUCAN) tablet 150 mg Given 12/24/2016 7:49 AM COST ESTIMATOR 150 mg Routine, 150 mg, Oral, ONCE, On Fri12/24/16 at 0800, For 1 dose, Indications: Candidiasis gentamicin (GARAMYCIN) 120 mg in NaCl 0.9 % New Bag 09/2016 8:34 PM COST ESTIMATOR 120 mg 100 mL intermittent infusion Routine, 120 mg, Intravenous, EVERY 8 HOURS, First dose on 11/8/17 at 0500, For 24 hours, Indications: Perioperative Pharmacoprophylaxis New Bag 12/25/2016 12:18 PM COST ESTIMATOR 120 mg New Bag 12/25/2016 5:01 AM COST ESTIMATOR 120 mg hydrocortisone (CORTAID) 1 % cream Given 12/27/2016 8:12 AM COST ESTIMATOR Topical, 2 TIMES DAILY, First dose on Fri12/17/16 at 2115, Apply to upper arms and left abdomen Given 12/25/2016 8:09 AM COST ESTIMATOR Given 12/23/2016 8:48 AM COST ESTIMATOR Left Arm HYDROmorphone (DILAUDID) Loading Dose Given 12/25/2016 3:[address] 0.2 mg administered from FO[employer]WE[employer] SAL[employer] LEADER 0.2-0.3 mg 0.2-0.3 mg, Intravenous, [employer] LOADING DOSE, On Fri12/25/16 at 0000, For 1 dose, LOADING DOSE (bolus) with start of FO[employer] LEADER. DO NOT GIVE IF A LOADING BOLUS DOSE HAS ALREADY BEEN GIVEN. (If loading dose not given from FO[employer] SALES LEADER, bar code scan must be overridden to chart dose)., Post-procedure HYDROmorphone (DILAUDID) [employer] 1 New Syringe/Cartridge 12/25/2016 1:00 AM COST ESTIMATOR mg/mL [employer] dose (mg): 0.2, Max FO[employer] LEADER dose (mg): 0.3, Lockout Interval (min): 10 minutes, FO[employer] LEADER Continuous Rate (mg/hr): CONTINUOUS RATE IS NOT RECOMMENDED FOR OPIOID NAIVE PATIENTS, Hour Limit (mg): 1.8, First dose on Fri12/25/16 at 0000, Do NOT give any additional opioids while on FO[employer]WE[employer] SALES LEADER. When transitioning from FO[employer]WE[employer]ES LEADER to oral opioids MAY give first oral opioid dose 30 minutes PRIOR to discontinuation of FOOTWEAR SALES LEADER., Intravenous, Post-procedure HYDROmorphone (DILAUDID) [employer] 1 mg/mL Shift Total 12/25/2016 6:24 AM COST ESTIMATOR [employer]ER dose (mg): 0.2, Max [employer] LEADER dose (mg): 0.3, Lockout Interval (min): 10 minutes, [employer] LE[employer] Continuous Rate (mg/hr): CONTINUOUS RATE IS NOT RECOMMENDED FOR OPIOID NAIVE PATIENTS, Hour Limit (mg): 2, First dose (after last modification) on Fri12/25/16 at 0430, Do NOT give any additional opioids while on FO[employer]WEAR SALES LEADER. When transitioning from FO[employer]WEAR SALES LEADER to oral opioids MAY give first oral opioid dose 30 minutes PRIOR to discontinuation of FO[employer]ES LEADER., Intravenous, Post-procedure Rate/Dose Verify 12/25/2016 4:54 AM COST ESTIMATOR 0.3 mg HYDROmorphone (DILAUDID) [employer] 1 mg/mL Rate/Dose Verify 12/25/2016 9:01 AM COST ESTIMATOR [employer]ER dose (mg): 0.3, Max [employer] LEADER dose (mg): 0.5, Lockout Interval (min): 10 minutes, [employer] LE[employer] Continuous Rate (mg/hr): 0.3, MAX Continuous Rate (mg/hr): 0.3, Hour Limit (mg): 3.3, First dose on Fri12/25/16 at 0845, Do NOT give additional opioids orders unless requested by provider., Intravenous HYDROmorphone (PF) (DILAUDID) injection Given 12/26/2016 8:34 AM COST ESTIMATOR 0.3 mg 0.2-0.3 mg 0.2-0.3 mg, Intravenous, EVERY 1 HOUR PRN, moderate to severe pain, Starting on Zoe 12/26/16 at 0407, Give IV Push undiluted up to 4 mg. Each 2mg over 2-5 minutes. Given 12/26/2016 6:57 AM COST ESTIMATOR 0.3 mg Given 12/26/2016 5:07 AM COST ESTIMATOR 0.3 mg HYDROmorphone (PF) (DILAUDID) injection Given 12/26/2016 1:52 AM COST ESTIMATOR 0.5 mg 0.3-0.5 mg 0.3-0.5 mg, Intravenous, EVERY 1 HOUR PRN, moderate to severe pain, Starting on Fri12/25/16 at 1559, Give IV Push undiluted up to 4 mg. Each 2mg over 2-5 minutes. Given 12/26/2016 12:31 AM COST ESTIMATOR 0.5 mg Given 12/25/2016 10:34 PM COST ESTIMATOR 0.5 mg HYDROmorphone (PF) (DILAUDID) injection 0.5 Given 12/25/2016 2:30 AM COST ESTIMATOR 0.5 mg mg 0.5 mg, Intravenous, EVERY 10 MIN PRN, other, acute pain.?May administer if Respiratory Rate is greater than 10, Starting on 12/25/16 at 0006, If fentanyl is also ordered, use HYDROmorphone if pain control insufficient with fentanyl or a longer acting agent is needed. Max cumulative dose = 2 mg Give IV Push undiluted up to 4 mg. Each 2mg over 2-5 minutes., PACU/Phase II Given 12/25/2016 1:56 AM COST ESTIMATOR 0.5 mg Given 12/25/2016 1:31 AM COST ESTIMATOR 0.5 mg hydrOXYzine (ATARAX) tablet 50 mg Given 12/08/2016 3:19 AM CDT 50 mg 50 mg, Oral, ONCE, On 12/08/16 at 0315, For 1 dose ibuprofen (ADVIL/MOTRIN) tablet 600 mg Given 12/27/2016 9:24 AM COST ESTIMATOR 600 mg 600 mg, Oral, EVERY 6 HOURS RT, First dose (after last modification) on Zoe 12/26/16 at 0800, Ibuprofen to start after toradol finishes Given 12/27/2016 3:07 AM COST ESTIMATOR 600 mg Given 12/26/2016 9:01 PM COST ESTIMATOR 600 mg indomethacin (INDOCIN) capsule 25 mg Given 12/09/2016 11:16 AM CDT 25 mg 25 mg, Oral, EVERY 6 HOURS, First dose on 12/07/16 at 2245, For 7 doses, Start 6 hours after loading dose. DO NOT exceed 48 hours of dosing. Given 12/09/2016 4:48 AM CDT 25 mg Given 12/08/2016 11:13 PM CDT 25 mg indomethacin (INDOCIN) capsule 50 mg Given 12/07/2016 4:46 PM CDT 50 mg 50 mg, Oral, ONCE, On 12/07/16 at 1545, For 1 dose ketorolac (TORADOL) injection 30 mg Given 12/26/2016 2:29 AM COST ESTIMATOR 30 mg 30 mg, Intravenous, EVERY 6 HOURS PRN, moderate to severe pain, Starting on Fri12/25/16 at 0826, For 24 hours, For ordered doses up to 30 mg, give IV Push undiluted over 2 minutes. Given 12/25/2016 8:23 PM COST ESTIMATOR 30 mg Given 12/25/2016 2:04 PM COST ESTIMATOR 30 mg lactated ringers BOLUS 1,000 mL New Bag 12/24/2016 6:45 PM COST ESTIMATOR 1,000 mLs Intravenous, 1,000 mL, ONCE, On 12/24/16 at 1900, For 1 dose, Prior to surgery. IF preeclamptic give only 500 mL, Pre-procedure lactated ringers infusion Rate/Dose Verify 12/07/2016 11:20 PM CDT 50 mL/hr at 50 mL/hr, Intravenous, CONTINUOUS, Starting on 12/07/16 at 1515, Until 12/09/16 at 1712 lactated ringers infusion New Bag 12/25/2016 5:40 PM COST ESTIMATOR 125 mL/hr at 125 mL/hr, Intravenous, CONTINUOUS, Starting on Fri12/25/16 at 0430, Until Zoe 12/26/16 at 0911 New Bag 12/25/2016 6:18 AM COST ESTIMATOR 125 mL/hr Rate/Dose Change 12/25/2016 5:06 AM COST ESTIMATOR 125 mL/hr levothyroxine (SYNTHROID/LEVOTHROID) tablet Given 11/18 7:46 AM CDT 125 mcg 125 mcg 125 mcg, Oral, DAILY, First dose on 12/08/16 at 0800, Separate oral administration of iron- or calcium-containing products and levothyroxine by at least 4 hours. Given 12/09/2016 10:11 AM CDT 125 mcg Given 12/08/2016 8:01 AM CDT 125 mcg levothyroxine (SYNTHROID/LEVOTHROID) tablet Given 12/18 8:10 AM COST ESTIMATOR 150 mcg 150 mcg 150 mcg, Oral, DAILY, First dose (after last modification) on Fri12/11/16 at 0800, Separate oral administration of iron- or calcium-containing products and levothyroxine by at least 4 hours. Given 12/26/2016 8:24 AM COST ESTIMATOR 150 mcg Given 12/25/2016 7:52 AM COST ESTIMATOR 150 mcg lidocaine (LMX4) 4 % kit Given by Other 12/25/2016 8:34 PM COST ESTIMATOR Starting on Fri12/25/16 at 1930, For 1 dose, Maria Antonia Hidalgo : cabinet override magic mouthwash suspension (diphenhydramine, lidocaine , aluminum-magnesium & simethicone) 10 mL, Swish & Swallow, EVERY 6 HOURS IN N, mouth sores, Starting on Fri12/24/16 at 1014 magnesium sulfate 6 g in NS intermittent Given 12/07/2016 3:51 P M CDT 6 g infusion (cmpd premix) 6 g, Intravenous, ONCE, On 12/07/16 at 1530, For 1 dose, Indication: neuroprotection Infuse over 30 minutes per infusion control pump. Stay with patient during loading dose. magnesium sulfate 6 g in NS intermittent Given 12/24/2016 7:15 P M COST ESTIMATOR 6 g infusion (cmpd premix) 6 g, Intravenous, ONCE, On Fri12/24/16 at 1900, For 1 dose, Indication: neuroprotection Infuse over 30 minutes per infusion control pump. Stay with patient during loading dose. magnesium sulfate 6 G/100mL infusion Starting on Fri12/24/16 at 1859, For 1 d Latoya montanez Elizabeth : cabinet override magnesium sulfate infusion New Bag 12/08/2016 2:10 AM CDT 2 g/hr 50 mL/hr 2 g/hr (50 mL/hr), Intravenous, CONTINUOUS, Starting on 12/07/16 at 1600, For neuroprotection. For 12 hours IF delivery occurs discontinue infusion. Not for use beyond 5 days in pre-term labor. Rate/Dose Verify 12/07/2016 11:20 PM CDT 2 g/hr 50 mL/hr New Bag 12/07/2016 4:25 PM CDT 2 g/hr 50 mL/hr nicotine polacrilex (NICORETTE) gum 2 mg 2 mg, Buccal, EVERY 1 HOUR PRN, smoking cessation, Sta rting on 12/08/16 at 1557, Gum should be chewed slowly until it tingles, then placed between cheek and gum: when tingle gone, repeat process until tingle kirk e (about 30 minutes). ondansetron (ZOFRAN) injection 4 mg Given 12/22/2016 5:06 PM COST ESTIMATOR 4 mg 4 mg, Intravenous, EVERY 6 HOURS PRN, nausea, vomiting, Administer over 2-5 Minutes, Starting on 12/07/16 at 1502, If nausea not resolved in 15 minutes, notify provider before proceeding to prochlorperazine (if ordered). Irritant. Up to 4 mg may be given IV Push undiluted over 2-5 minutes. Given 12/13/2016 11:22 AM CDT 4 mg Given 12/07/2016 5:34 PM CDT 4 mg oxyCODONE IR (ROXICODONE) tablet 10-15 m g Given 12/25/2016 1:18 PM COST ESTIMATOR 15 mg 10-15 mg, Oral, EVERY 4 HOURS PRN, moderate to severe pain, Starting on Fri12/25/16 at 1246 oxyCODONE IR (ROXICODONE) tablet 15-20 m g Given 12/27/2016 12:40 PM COST ESTIMATOR 20 mg 15-20 mg, Oral, EVERY 3 HOURS PRN, moderate to severe pain, Starting on Fri12/25/16 at 1645, Patient is an opioid tolerant patient and will require higher narcotic doses due to buprenorphine. Given 12/27/2016 9:24 AM COST ESTIMATOR 20 mg Given 12/27/2016 6:21 AM COST ESTIMATOR 20 mg potassium chloride (KLOR-CON) Packet 20- 40 mEq 20-40 mEq, Oral or Feeding Tube, EVERY 2 HOURS PRN, po tassium supplementation, Starting on Fri12/25/16 at 0356, Use if unable to tole rate tablets. If Serum K+ 3.0-3.3, dose = 60 mEq po total dose (40 mEq x1 followed in 2 hours by 20 mEq x1). Recheck K+ level 4 hours after dose and the next AM. If Serum K+ 2.5-2.9, dose = 80 mEq po total dose (40 mEq Q2H x2). Reche ck K+ level 4 hours after dose and the next AM. If Serum K+ less than 2.5, See IV or nia. Dissolve packet contents in 4-8 ounces of cold water or juice. potassium chloride 10 mEq in [address] ile water intermittent infusion (premix) 10 mEq, Intravenous, Administer over 60 Minutes, at 100 mL/hr, EVERY 1 HOUR PRN, potassium supplementation, Starting on W ed 12/25/16 at 0356, Infuse via PERIPHERAL LINE or CENTRAL LINE. Use for central li ne replacement if patient weight less than 65 kg, if patient is on TPN with high po tassium content or if unit does not stock 20 mEq bags. If Serum K+ 3.0-3.3, dose = 10 mEq/hr x4 doses (40 mEq IV total dose). Recheck K+ level 2 hours after dose and the next AM. I f Serum K+ less than 3.0, dose = 10 mEq/hr x6 doses (60 mEq IV tot al dose). Recheck K+ level 2 hours after dose and the next AM. potassium chloride SA (K-DUR/KLOR-CON M) CR tablet 20-40 mEq 20-40 mEq, Oral, EVERY 2 HOURS PRN, potassium suppleme ntation, Starting on Fri12/25/16 at 0356, Use if able to take PO. If Serum K+ 3 .0-3.3, dose = 60 mEq po total dose (40 mEq x1 followed in 2 hour s by 20 mEq x1). Recheck K+ level 4 hours after dose and the next AM. If Serum K+ 2.5-2.9, dose = 80 mEq po total dose (40 mEq Q2H x2). Recheck K+ level [address] dose and the next AM. If Serum K+ less than 2.5, See IV order. DO NOT CRUSH multivitamin plus iron per tablet Given 12/24 7:49 AM COST ESTIMATOR 1 tablet 1 tablet 1 tablet, Oral, DAILY, First dose on Fri12/13/16 at 1300 Given 12/23/2016 8:48 AM COST ESTIMATOR 1 tablet Given 12/22/2016 8:10 AM COST ESTIMATOR 1 tablet senna-docusate (SENOKOT-S;PERICOLACE) Given 12/17/2016 8:05 AM C DT 1 tablet 8.6-50 MG per tablet 1 tablet 1 tablet, Oral, DAILY, First dose on Fri12/16/16 at 1215 Given 12/16/2016 1:03 PM CDT 1 tablet senna-docusate (SENOKOT-S;PERICOLACE) Given 12/24/2016 7:[address] 1 tablet 8.6-50 MG per tablet 1 tablet 1 tablet, Oral, 2 TIMES DAILY, First dose (after last modification) on Fri12/17/16 at 2000 Given 12/23/2016 8:15 PM COST ESTIMATOR 1 tablet Given 12/23/2016 8:48 AM COST ESTIMATOR 1 tablet senna-docusate (SENOKOT-S;PERICOLACE) Given 12/27/2016 8:[address] 2 tablets 8.6-50 MG per tablet 1-2 tablet 1-2 tablet, Oral, 2 TIMES DAILY, First dose on Fri12/25/16 at 0800, Start with 1 tablet PO BID, If no bowel movement in 24 hours, increase to 2 tablets po BID. Hold for loose stools. Preferred agent for constipation related to opioids., Post-procedure Given 12/26/2016 9:01 PM COST ESTIMATOR 2 tablets Given 12/26/2016 8:23 AM COST ESTIMATOR 2 tablets simethicone (MYLICON) chewable tablet 80 mg Given 12/26/2016 1:54 PM COST ESTIMATOR 80 mg 80 mg, Oral, 4 TIMES DAILY PRN, other, gas, Starting on Fri12/25/16 at 0352, Chew., Post-procedure Given 12/26/2016 6:36 AM COST ESTIMATOR 80 mg Given 12/26/2016 12:31 AM COST ESTIMATOR 80 mg sodium chloride (OCEAN) 0.65 % nasal spray Given 12/08 10:57 AM CDT 1 spray 1 spray 1 spray, Both Nostrils, EVERY 1 HOUR PRN, congestion, Starting on 12/08/16 at 1027 sodium chloride (PF) 0.9% PF flush 3 mL Given 12/18/2016 10:32 PM CDT 3 mLs 3 mL, Intracatheter, EVERY 1 HOUR PRN, line flush, post meds or blood draw, Starting on 12/07/16 at 1502, for peripheral IV flush post IV meds Given 12/17/2016 5:12 PM CDT 3 mLs Given 12/09/2016 12:44 PM CDT 3 mLs sodium chloride (PF) 0.9% PF flush 3 mL Given 12/24/2016 3:06 PM COST ESTIMATOR 3 mLs 3 mL, Intracatheter, EVERY 8 HOURS, First dose on 12/07/16 at 1515, And Q1H PRN, to lock peripheral IV dormant line. Given 12/24/2016 6:16 AM COST ESTIMATOR 3 mLs Given 12/23/2016 10:05 PM COST ESTIMATOR 3 mLs sodium chloride (PF) 0.9% PF flush 3 mL Given 12/24/2016 6:52 PM COST ESTIMATOR 3 mLs 3 mL, Intravenous, EVERY 8 HOURS, First dose on Fri12/24/16 at 1900, And Q1H PRN, to lock peripheral IV dormant line. , Pre-procedure sodium chloride (PF) 0.9% PF flush 3 mL Given 12/26/2016 6:58 AM COST ESTIMATOR 3 mLs 3 mL, Intracatheter, EVERY 1 HOUR PRN, line flush, for peripheral IV flush post IV meds, Starting on Fri12/25/16 at 0352, Post-procedure Given 12/26/2016 5:07 AM COST ESTIMATOR 3 mLs Given 12/26/2016 1:52 AM COST ESTIMATOR 3 mLs sodium chloride (PF) 0.9% PF flush 3 mL Given 12/26/2016 2:29 AM COST ESTIMATOR 3 mLs 3 mL, Intracatheter, EVERY 8 HOURS, First dose on Fri12/25/16 at 0400, And Q1H PRN, to lock peripheral IV dormant line., Post-procedure Given 12/25/2016 8:34 PM COST ESTIMATOR 3 mLs Given 12/25/2016 12:12 PM COST ESTIMATOR 3 mLs sodium citrate-citric acid (BICITRA) 500 -334 MG/5ML solution Starting on Fri12/24/16 at 1850, For 1 dose, Jon Joya : cabinet override sodium citrate-citric acid (BICITRA) solution Given 7:00 PM COST ESTIMATOR 30 mLs 30 mL 30 mL, Oral, PRE-OP/PRE-PROCEDURE, Starting on Fri12/24/16 at 1848, For 1 dose, For gastric pH neutralization. GIVE WITHIN 45 minutes PRIOR TO SURGICAL PROCEDURE., Pre-procedure venlafaxine (EFFEXOR-ER) 24 hr tablet 15 0 mg Given 12/27/2016 8:10 AM COST ESTIMATOR 150 mg 150 mg, Oral, DAILY WITH BREAKFAST, First dose (after last modification) on Fri12/09/16 at 0800, DO NOT CRUSH. Given 12/26/2016 8:23 AM COST ESTIMATOR 150 mg Given 12/25/2016 11:12 AM COST ESTIMATOR 150 mg venlafaxine (EFFEXOR-ER) 24 hr tablet 30 0 mg Given 12/08/2016 8:27 AM CDT 150 mg 300 mg, Oral, DAILY WITH BREAKFAST, First dose on Fri12/08/16 at 0800, DO NOT CRUSH. documented in this encounter Active and Recently Administered Medications Times are shown in COST ESTIMATOR. Scheduled Medication Order 12/25/2016 12/26/2016 12/27/2016 acetaminophen (TYLENOL) tablet 975 mg 0218 (Auto Hold - Provider: Orders Generic Provider - Reason: Transfer to a procedural area)0247 (Given - Provider: Lisa Rubio RN)0306 (Unhold - Provider: Orders Generic Provider)0751 (Given - P rovider: Fransisca Gates RN) 0822 (Given - Provider: Hyacinth Wolf RN)1800 (Given - Provider: Gudelia Clemons RN) 0207 (Given - Provider: Lucia Cotton, GENARO)1240 (Given - Provider: Brenna Verduzco RN) 975 mg, Oral, EVERY 8 HOURS, First dose on Fri12/25/16 at 0000, For 3 days, Do not use if patient has an active opioid/acetaminophen analgesic order for pain Maximum acetaminophen dose from all sources 1546 (Given - Provider: Maria Antonia Hidalgo RN)2335 (Given - Provider: Yessenia Julian RN) = 75 mg/kg/day not to exceed 4 grams/day., Post-procedure bacitracin ointment 0218 (Auto Hold - Provider: Orders Generic Provider - Reason: Transfer to a procedural area)0306 (Unhold - Provider: Orders Generic Provider)0333 (Canceled Entry - Provider: Khloe Elmore RN) 1018 (Not Given - Provider: Hyacinth Wolf RN - Reason: Patient/family refused)1400 (Not Given - Provider: Hyacinth Wolf RN - Reason: Patient/family refused)2239 (Not Given - Provider: Gudelia Clemons RN - Reason: Patient/family refused) 0812 (Given - Provider: Brenna Verduzco, GENARO)1400 (Canceled Entry - Provider: Orders Generic Provider - Comment: Automatically canceled at discontinue of medication order) Topical, 3 TIMES DAILY, First dose on 12/22/16 at 1400, Apply to areas of picking. 0800 (Not Given - Provider: Maria Antonia dobson RN - Reason: Other)1301 (Given - Provider: Maria Antonia Hidalgo RN)2042 (Not Given - Provider: Yessenia Julian RN - Reason: Patient/family refused - Comment: wants to wait until later) buprenorphine (SUBUTEX) sublingual tablet 2 mg 0218 (A uto Hold - Provider: Orders Generic Provider - Reason: Transfer to a procedural area)0306 (Unhold - Provider: Orders Generic Provider)0332 (Canceled Entry - Provider: Khloe Elmore RN)0404 (Given - Provider: Khloe Elmore RN) 0421 (Given - Provider: Lucia Cotton, GENARO)0911 (Given - Provider: Hyacinth Wolf RN)1351 (Given - Provider: Hyacinth Wolf RN)1800 (Given - Provider: Gudelia Clemons, RN)2238 (Given - Provider: Gudelia Clemons, GENARO) 0406 (Given - Provider: Lucia Cotton RN)0810 (Given - Provider: Brenna Verduzco, RN)1300 (Canceled Entry - Provider: Orders Generic Provider - Comment: Automatically canceled at discontinue of medication order) 2 mg, Sublingual, 5 TIMES DAILY, First dose on Fri at 1545 0751 (Given - Provider: Fransisca Gates, GENARO)1231 (Given - Provider: Maria Antonia Hidalgo, GENARO)1642 (Given - Provider: Maria Antonia Hidalgo, GENARO)2302 (Given - Provider: Yessenia Julian, GENARO) buPROPion (WELLBUTRIN SR) 12 hr tablet 150 mg 0218 (Au to Hold - Provider: Orders Generic Provider - Reason: Transfer to a procedural area)0306 (Unhold - Provider: Orders Generic Provider)0752 (Given - Provider: Fransisca Thapa RN) 0823 (Given - Provider: Hyacinth Wolf RN) 0810 (Given - Provider: Brenna Verduzco, GENARO) 150 mg, Oral, DAILY, First dose on Fri12/17/16 at 0800, DO NOT CRUSH. clindamycin (CLEOCIN) infusion 900 mg () 0505 ( Canceled Entry - Provider: Khloe Elmore RN)0619 (New Bag - Provider: Khloe Elmore RN)1332 (New Bag - Provider: Maria Antonia Hidalgo, GENARO) 900 mg, Intravenous, EVERY 8 HOURS, Firs t dose on Fri12/25/16 at 0430, For 24 hours, Indications: Perioperative Pharmacoprophylaxis gentamicin (GARAMYCIN) 120 mg in NaCl 0. 9 % 100 mL intermittent infusion (COMPLETED) 0501 (New Bag - Provider: Khloe Elmore RN)1218 (New Bag - Provider: Maria Antonia Hidalgo, GENARO)2034 (New Bag - Provider: Yessenia Julian, GENARO) 120 mg, Intravenous, EVERY 8 HOURS, Firs t dose on Fri12/25/16 at 0500, For 24 hours, Indications: Perioperative Pharmacoprophylaxis hydrocortisone (CORTAID) 1 % cream 0218 (Auto Hold - P rovider: Orders Generic Provider - Reason: Transfer to a procedural area)0306 (Unhold - Provider: Orders Generic Provider)08 (Given - Provider: rFansisca Gates, GENARO) 1327 (Not Given - Provider: Hyacinth Wolf RN - Reason: Patient/family refused)223 (Not Given - Provider: Gudelia Clemons RN - Reason: Patient/family refused) 08 (Given - Provider: Brenna Verduzco, GENARO) Topical, 2 TIMES DAILY, First dose on 12/17/16 at 2115, Apply to upper arms and left abdomen 2041 (Not Given - Provider: Yessenia alcala RN - Reason: Patient/family refused - Comment: wants to wait until later) HYDROmorphone (DILAUDID) Loading Dose ad ministered from [employer]ADER 0.2-0.3 mg (COMPLETED) 335 (Given - Provider: Khloe Elmore RN) 0.2-0.3 mg, Intravenous, [employer] LOADING DOS E, Fri12/25/16 at 0000, For 1 dose, LOADING DOSE (bolus) with start of [employer] LEADER. DO NOT GIVE IF A LOADING BOLUS DOSE HAS ALREADY BEEN GIVEN. (If loading dose not given from [employer] LEADER, bar code scan must be overridden to chart dose)., Pos t-procedure HYDROmorphone (DILAUDID) [employer] LE[employer]ER 1 mg/mL (CANCELED) 0100 ( New Syringe/Cartridge - Provider: Lisa Rubio, GENARO)0218 (Auto Hold - Provider: Orders Generic Provider - Reason: Transfer to a procedural area)0253 (Unhold - Provider: Marleny Kang MD) [employer] LEADER dose (mg): 0.2, Max [employer] LEADER dose (mg): 0 .3, Lockout Interval (min): 10 minutes, [employer] Continuous Rate (mg/hr): CONTINUOUS RATE IS NOT RECOMMENDED FOR OPIOID NAIVE PATIENTS, Hour Limit (mg): 1.8, First dos e on Fri12/25/16 at 0000, Do NOT give an y additional opioids while on FO[employer]WE[employer] SAL[employer] LEADER. When transitioning from [employer] LE[employer]ER to oral opioids MAY give first oral opioid dose 30 minutes PRIOR to discontinuation of [employer] LEADER., Intravenous, Post-procedure HYDROmorphone (DILAUDID) [employer] 1 mg/mL (CANCELED) 0454 ( Rate/Dose Verify - Provider: Khloe Elmore RN)0508 (Canceled Entry - Provider: Khloe Elmore RN)0624 (Shift Total - Provider: Khloe Elmore RN) [employer]ER dose (mg): 0.2, Max FO[employer] LEADER dose (mg): 0 .3, Lockout Interval (min): 10 minutes, [employer] Continuous Rate (mg/hr): CONTINUOUS RATE IS NOT RECOMMENDED FOR OPIOID NAIVE PATIENTS, Hour Limit (mg): 2, First dose on Fri12/25/16 at 0430, Do NOT give any additional opioids while on [employer] LE[employer]ER. When transitioning from [employer] LE[employer]ER to oral opioids MAY give first oral opioid dose 30 minutes PRIOR to discontinuation of [employer] LEADER., Intravenous, Post-procedure HYDROmorphone (DILAUDID) [employer] 1 mg/mL (CANCELED) 0845 ( Canceled Entry - Provider: Fransisca Gates RN)0901 (Rate/Dose Verify - Provider: Fransisca Gates RN)1350 (Stopped - Provider: Maria Antonia Hidalgo RN) [employer]ER dose (mg): 0.3, Max [employer] LEADER dose (mg): 0 .5, Lockout Interval (min): 10 minutes, [employer] Continuous Rate (mg/hr): 0.3, MAX Continuous Rate (mg/hr): 0.3, Hour Limit (mg): 3.3, First dose on Fri12/25/16 at 084 5, Do NOT give additional opioids orders unless requested by provider., Intravenous ibuprofen (ADVIL/MOTRIN) tablet 600 mg 0 823 (Given - Provider: Hyacinth Wolf RN)1351 (Given - Provider: Hyacinth Wolf RN)2101 (Given - Provider: Gudelia Clemons RN) 0307 (Given - Provider: Lucia Cotton RN)0810 (Not Given - Provider: Brenna Verduzco RN - Reason: Contraindicated)0924 (Given - Provider: Brenna Verduzco RN) 600 mg, Oral, EVERY 6 HOURS, First dose on Fri12/26/16 at 0800, Ibuprofen to start after toradol finishes 1400 (Cance led Entry - Provider: Orders Generic Provider - Comment: Automatically canceled at discontinue of medication order) levothyroxine (SYNTHROID/LEVOTHROID) tablet 150 mcg 02 18 (Auto Hold - Provider: Orders Generic Provider - Reason: Transfer to a procedural area)0306 (Unhold - Provider: Orders Generic Provider)0752 (Given - Provider: Fransisca Thapa RN) 0824 (Given - Provider: Hyacinth Wolf RN) 0810 (Given - Provider: Brenna Verduzco, GENARO) 150 mcg, Oral, DAILY, First dose on Fri12/11/16 at 0800, Separate oral administration of iron- or calcium-containing products and levothyroxine by at least 4 hours. senna-docusate (SENOKOT-S;PERICOLACE) 8.6-50 MG per ta blet 1-2 tablet 08 (Not Given - Provider: Fransisca Gates RN - Reason: Patient/family refused)2042 (Given - Provider: Yessenia Julian RN) 0823 (Given - Provider: Hyacinth Wolf RN)210 (Given - Provider: Gudelia Clemons RN) 0810 (Given - Provider: Brenna Verduzco, GENARO) 1-2 tablet, Oral, 2 TIMES DAILY, First d ose on Fri12/25/16 at 0800, Start with 1 tablet PO BID, If no bowel movement in 24 hours, increase to 2 tablets po BID. Hold for loose stools. Preferred agent for constipation related to opioids., Post-procedure sodium chloride (PF) 0.9% PF flush 3 mL (CANCELED) 050 3 (Not Given - Provider: Khloe Elmore RN - Reason: IV Infusing)1212 (Given - Provider: Maria Antonia Hidalgo RN)2033 (Given - Provider: Yessenia Julian RN) 022 (Given - Provider: Lucia Cotton, GENARO)0635 (Not Given - Provider: Lucia Cotton RN - Reason: Other - Comment: already gave) 3 mL, Intracatheter, EVERY 8 HOURS, Firs t dose on Fri12/25/16 at 0400, And Q1H PRN, to lock peripheral IV dormant line., Post-procedure venlafaxine (EFFEXOR-ER) 24 hr tablet 150 mg 0218 (Aut o Hold - Provider: Orders Generic Provider - Reason: Transfer to a procedural area)0306 (Unhold - Provider: Orders Generic Provider)1112 (Given - Provider: Maria Antonia Hidalgo, RN) 0823 (Given - Provider: Hyacinth Wolf RN) 0810 (Given - Provider: Brenna Verduzco RN) 150 mg, Oral, DAILY WITH BREAKFAST, Firs t dose on Fri12/09/16 at 0800, DO NOT CRUSH. Continuous Medication Order 12/25/2016 12/26/2016 12/27/2016 lactated ringers infusion (CANCELED) 0506 (Rate/Dose C hange - Provider: Khloe Elmore, GENARO)0618 (New Bag - Provider: Khloe Elmore, GENARO)1740 (New Bag - Provider: Maria Antonia Hidalgo, GENARO) at 125 mL/hr, Intravenous, CONTINUOUS, S tarting Fri12/25/16 at 0430, Until Zoe 12/26/16 at 0911 PRN Medication Order 12/25/2016 12/26/2016 12/27/2016 benzocaine (ORAJEL MAXIMUM STRENGTH) 20 % gel 0218 (Au to Hold - Provider: Orders Generic Provider - Reason: Transfer to a procedural area)0306 (Unhold - Provider: Orders Generic Provider) Mouth/Throat, 4 TIMES DAILY PRN, moderat e pain, Starting Fri12/23/16 at 0935, Apply to side of tongue near sore bisacodyl (DULCOLAX) Suppository 10 mg 2153 (Given - P rovider: Yessenia Julian RN) 10 mg, Rectal, DAILY PRN, constipation, Starting Fri12/25/16 at 2148, Start POD 2, Post-procedure bupivacaine liposome (EXPAREL) LONG ACTI NG injection was administered into the infiltration site to produce postsurgical analgesia. Duration of action is up to 72 hours, and other sherita medications sh ould not be given for 96 hours with the exception of the lidocaine 5% patch (LIDODERM) and the lidocaine 10mg in potassium infusions. This entry is for INFORMATION ONLY. CONTINUOUS PRN, Starting Fri12/24/16 at 2350, Until Fri12/27/16 at 1736, NURSE to notify physician if patient has ringing in the ears, metallic taste in the mouth, or circumoral numbness, Post-procedure carboprost (HEMABATE) injection 250 mcg 250 mcg, Intramuscular, ONCE PRN, postpa rtum hemorrhage, Starting Fri12/25/16 at 0352, For 1 dose, Start IF HEMORRHAGE, Post-procedure diphenhydrAMINE (BENADRYL) capsule 25 mg(Linked Group 1) 1922 (Given - Provider: Maria Antonia Hidalgo, GENARO) 25 mg, Oral, EVERY 6 HOURS PRN, itching, Starting Fri12/25/16 at 0352, Post-procedure diphenhydrAMINE (BENADRYL) injection 25 mg(Linked Grou p 1) 1922 (See Alternative - Provider: Maria Antonia Hidalgo, GENARO) 25 mg, Intravenous, EVERY 6 HOURS PRN, i tching, Give IV only if unable to take PO, Administer over 1-2 Minutes, Starting Fri12/25/16 at 0352, For ordered doses up to 50 mg, give IV Push undiluted. Give each 25mg over a minimum of 1 minute. Extend in non-emergency, P ost-procedure emollient (VANICREAM) cream 0218 (Auto Hold - Provider : Orders Generic Provider - Reason: Transfer to a procedural area)0306 (Unhold - Provider: Orders Generic Provider) Topical, EVERY 2 HOURS PRN, other, area of dry skin, Starting 12/15/16 at 1239, Apply to areas of dry skin fentaNYL (PF) (SUBLIMAZE) injection 50 mcg (CANCELED) 0015 (Given - Provider: Lisa Rubio, GENARO)0026 (Given - Provider: Lisa Rubio, GENARO)0048 (Given - Provider: Lisa Rubio, GENARO)0103 (Given - Provider: Lisa Rubio, GENARO) 50 mcg, Intravenous, EVERY 2 MIN PRN, St arting Fri12/25/16 at 0005, other, acute pain while in PACU., MAX cumulative dose = 250 mcg. Use Fentanyl initially, as a short acting agent for acute pain contro l. If insufficient, or a longer acting a gent is needed, begin Morphine or Hydromorphone if ordered. Give IV Push undiluted over a minimum of 3-5 minutes up to 100 mcg., PACU hydrocortisone 2.5 % cream Rectal, 3 TIMES DAILY PRN, hemorrhoids, Starting Fri12/25/16 at 0352, Apply to hemorrhoids. Send only if nurse requests., Post-procedure HYDROmorphone (PF) (DILAUDID) injection 0.2-0.3 mg (CANCELED ) 0507 (Given - Provider: Lucia Cotton RN)0657 (Given - Provider: Lucia Cotton RN)0834 (Given - Provider: Hyacinth Wolf RN) 0.2-0.3 mg, Intravenous, EVERY 1 HOUR IN N, Starting Zoe 12/26/16 at 0407, Until Zoe 12/26/16 at 0911, moderate to severe pain, Give IV Push undiluted up to 4 mg. Each 2mg over 2-5 minutes. HYDROmorphone (PF) (DILAUDID) injection 0.3-0.5 mg (CA NCELED) 1642 (Given - Provider: Maria Antonia Hidalgo RN)1821 (Given - Provider: Maria Antonia Hidalgo, GENARO)1944 (Given - Provider: Maria Antonia Hidalgo RN)2129 (Given - Provider: Yessenia Julian, GENARO)2234 (Given - Provider: Yessenia Julian, GENARO) 0031 (Given - Provider: Lucia Cotton RN)0152 (Given - Provider: Lucia Cotton RN) 0.3-0.5 mg, Intravenous, EVERY 1 HOUR IN N, Starting Fri12/25/16 at 1559, Until Zoe 12/26/16 at 0407, moderate to severe pain, Give IV Push undiluted up to 4 mg. Each 2mg over 2-5 minutes. HYDROmorphone (PF) (DILAUDID) injection 0.5 mg (CANCEL ED) 0120 (Given - Provider: Lisa Rubio RN)0131 (Given - Provider: Lisa Rubio RN)0156 (Given - Provider: Lisa Rubio RN)0230 (Given - Provider: Lisa Rubio RN) 0.5 mg, Intravenous, EVERY 10 MIN PRN, S tarting Fri12/25/16 at 0006, Until Fri12/25/16 at 0306, other, acute pain.?May administer if Respiratory Rate is greater than 10, PACU/Phase II, If fentanyl is also ordered, use HYDROmorphone if pain control insufficient with fentanyl or a longer acting agent is needed. Max cumulative dose = 2 mg Give IV Push undiluted up to 4 mg. Each 2mg over 2-5 minutes. ketorolac (TORADOL) injection 30 mg () 0832 (Gi alex - Provider: Fransisca Gates RN)140 (Given - Provider: Maria Antonia Hidalgo, GENARO)2022 (Given - Provider: Yessenia Julian, GENARO) 228 (Given - Provider: Lucia Cotton, GENARO) 30 mg, Intravenous, EVERY 6 HOURS PRN, S tarting Fri12/25/16 at 0826, For 24 hours, moderate to severe pain, For ordered doses up to 30 mg, give IV Push undiluted over 2 minutes. lactated ringers BOLUS 1,000 mL Intravenous, 1,000 mL, ONCE PRN, post pa rtum hemorrhage, Starting Fri12/25/16 at 0352, For 1 dose, Rate: 500-1000 mL/hr. Start IF HEMORRHAGE, Post-procedure lanolin ointment Topical, EVERY 1 HOUR PRN, dry skin, sor eness, Starting Fri12/25/16 at 0352, Apply to sore nipples after feedings, Post-procedure magic mouthwash suspension (diphenhydram ine, lidocaine, aluminum-magnesium & simethicone) 0218 (Auto Hold - Provider: Orders Gener ic Provider - Reason: Transfer to a procedural area)0306 (Unhold - Provider: Orders Generic Provider) 10 mL, Swish & Swallow, EVERY 6 HOURS IN N, mouth sores, Starting Fri12/24/16 at 1014 methylergonovine (METHERGINE) injection 200 mcg 200 mcg, Intramuscular, ONCE PRN, postpa rtum hemorrhage, Starting Fri12/25/16 at 0352, For 1 dose, Start IF HEMORRHAGE. CONTRAINDICATED if Blood Pressure greater than 140/80 and/or history of hypertension., Post-procedure misoprostol (CYTOTEC) tablet 400 mcg 400 mcg, Oral, ONCE PRN, hemo rrhage, Starting Fri12/25/16 at 0352, For 1 dose, Post-procedure naloxone (NARCAN) injection 0.1-0.4 mg 0.1-0.4 mg, Intravenous, EVERY 2 MIN PRN , opioid reversal, Starting Fri12/25/16 at 0352, For respiratory rate LESS than or EQUAL to 8. Partial reversal dose: 0.1 mg titrated q 2 minutes for Analgesia Si de Effects Monitoring Sedation Level of 3 (frequently drowsy, arousable, drifts to sleep during conversation).Full reversal dose: 0.4 mg bolus for Analgesia Side Effects Monitoring Sedation Level of 4 ( somnolent, minimal or no response to sti mulation). Give IV Push undiluted up to 2mg. Give each 0.4mg over 15 seconds in emergency situations. For non-emergent situations further dilute in 9mL of NS to facilitate titration of response., Post-procedure nicotine polacrilex (NICORETTE) gum 2 mg 0218 (Auto Ho ld - Provider: Orders Generic Provider - Reason: Transfer to a procedural area)0306 (Unhold - Provider: Orders Generic Provider) 2 mg, Buccal, EVERY 1 HOUR PRN, smoking cessation, Starting Fri12/08/16 at 1557, Gum should be chewed slowly until it tingles, then placed between cheek and gum: when tingle gone, repeat process until tingle gone (about 30 minutes). NO Rho (D) immune globulin (RhoGam) needed - mother Rh POSITIVE CONTINUOUS PRN, Starting Fri12/25/16 at 0352, Until Fri12/27/16 at 1736, Post-procedure No Tdap Needed - Assessment: Patient does not need Tdap vaccine CONTINUOUS PRN, Starting Fri12/25/16 at 0352, Until Fri12/27/16 at 1736, Post-procedure oxyCODONE IR (ROXICODONE) tablet 10-15 mg (CANCELED) 1 318 (Given - Provider: Maria Antonia Hidalgo RN) 10-15 mg, Oral, EVERY 4 HOURS PRN, moder ate to severe pain, Starting Fri12/25/16 at 1246 oxyCODONE IR (ROXICODONE) tablet 15-20 mg 1725 (Given - Provider: Maria Antonia Hidalgo, RN)2023 (Given - Provider: Yessenia Julian, GENARO)2335 (Given - Provider: Yessenia Julian, GENARO) 0302 (Given - Provider: Lucia Cotton , GENARO)0601 (Given - Provider: Lucia Cotton, GENARO)0911 (Given - Provider: Hyacinth Wolf RN)1207 (Given - Provider: Hyacinth Wolf RN)1507 (Given - Provider: Hyacinth Wolf RN) 0307 (Given - Provider: Lucia Cotton, GENARO)0621 (Given - Provider: Lucia Cotton RN)0924 (Given - Provider: Brenna Verduzco, GENARO)1240 (Given - Provider: Brenna Verduzco RN) 15-20 mg, Oral, EVERY 3 HOURS PRN, moder ate to severe pain, Starting Fri12/25/16 at 1645, Patient is an opioid tolerant patient and will require higher narcotic doses due to buprenorphine. 1800 (Given - Provider: Maycol Clemons RN)2101 (Given - Provider: Gudelia Clemons, GENARO)2359 (Given - Provider: Lucia Cotton RN) oxytocin (PITOCIN) 30 units in 500 mL 0.9% NaCl infusion 340 mL/hr, Intravenous, at 340 mL/hr, CO NTINUOUS PRN, for hemorrhage UNTIL bleeding subsided, Starting Fri12/25/16 at 0352, Post-procedure, When bleeding subsides decrease rate to 100 mL/hr. Notify provider immediately when infusion begun. oxytocin (PITOCIN) injection 10 Units 10 Units, Intramuscular, ONCE PRN, postp artum hemorrhage. IF no IV access is available., Starting Fri12/25/16 at 0352, For 1 dose, Post-procedure potassium chloride (KLOR-CON) Packet 20-40 mEq 20-40 mEq, Oral or Feeding Tube, EVERY 2 HOURS PRN, Starting Fri12/25/16 at 0356, potassium supplementation, Use if unable to tolerate tablets. If Serum K+ 3.0-3.3, dose = 60 mEq po total dose (40 mEq x 1 followed in 2 hours by 20 mEq x1). Rec heck K+ level 4 hours after dose and the next AM. If Serum K+ 2.5-2.9, dose = 80 mEq po total dose (40 mEq Q2H x2). Recheck K+ level 4 hours after dose and the ne xt AM. If Serum K+ less than 2.5, See IV order. Dissolve packet contents in 4-8 ounces of cold water or juice. potassium chloride 10 mEq in 100 mL ster ile water intermittent infusion (premix) 10 mEq, Intravenous, Administer over 60 Minutes, EVERY 1 HOUR PRN, Starting Fri12/25/16 at 0356, potassium supplementation, Infuse via PERIPHERAL LINE or CENTRAL LINE. Use for central line replacement i f patient weight less than 65 kg, if pat ient is on TPN with high potassium content or if unit does not stock 20 mEq bags. If Serum K+ 3.0-3.3, dose = 10 mEq/hr x4 doses (40 mEq IV total dose). Recheck K + level 2 hours after dose and the next AM. If Serum K+ less than 3.0, dose = 10 mEq/hr x6 doses (60 mEq IV total dose). Recheck K+ level 2 hours after dose and the next AM. potassium chloride SA (K-DUR/KLOR-CON M) CR tablet 20-40 mEq 20-40 mEq, Oral, EVERY 2 HOURS PRN, Star ting Fri12/25/16 at 0356, potassium supplementation, Use if able to take PO. If Serum K+ 3.0-3.3, dose = 60 mEq po total dose (40 mEq x1 followed in 2 hours by 20 mEq x1). Recheck K+ level 4 hours after dose and the next AM. If Serum K+ 2.5- 2.9, dose = 80 mEq po total dose (40 mEq Q2H x2). Recheck K+ level 4 hours after dose and the next AM. If Serum K+ less than 2.5, See IV order. DO NOT CRUSH simethicone (MYLICON) chewable tablet 80 mg 0801 (Give n - Provider: Fransisca Gates RN)3836 (Given - Provider: Maria Antonia Hidalgo RN) 0031 (Given - Provider: Lucia Cotton RN)0636 (Given - Provider: Lucia Cotton RN)1354 (Given - Provider: Hyacinth Wolf RN) 80 mg, Oral, 4 TIMES DAILY PRN, other, g as, Starting Fri12/25/16 at 0352, Chew., Post-procedure sodium chloride (OCEAN) 0.65 % nasal spray 1 spray 021 8 (Auto Hold - Provider: Orders Generic Provider - Reason: Transfer to a procedural area)0306 (Unhold - Provider: Orders Generic Provider) 1 spray, Both Nostrils, EVERY 1 HOUR PRN , congestion, Starting 12/08/16 at 1027 sodium chloride (PF) 0.9% PF flush 3 mL 0032 (Given - Provider: Lucia Cotton RN)0152 (Given - Provider: Lucia Cotton RN)0507 (Given - Provider: Lucia Cotton, GENARO)0658 (Given - Provider: Lucia Cotton RN) 3 mL, Intracatheter, EVERY 1 HOUR PRN, l ine flush, for peripheral IV flush post IV meds, Starting Fri12/25/16 at 0352, Post-procedure sodium phosphate (FLEET ENEMA) 1 enema 1 enema, Rectal, DAILY PRN, constipation , , Starting Zoe 12/26/16 at 0000, Use if bisacodyl not effective. Start POD 2., Post-procedure No Frequency Medication Order 12/25/2016 12/26/2016 12/27/2016 lidocaine (LMX4) 4 % kit (COMPLETED) 2033 (Given by Ot her - Provider: Yessenia Julian RN) Starting on Fri12/25/16 at 1930, For 1 dose, Maria Antonia Hidalgo : cabi net override Linked Groups Order Group 1: diphenhydrAMINE (BENADRYL) capsule 25 mgJump to med 25 mg, Oral, EVERY 6 HOURS PRN, itching, Starting Fri12/25/16 at 0352, Post-procedure Or diphenhydrAMINE (BENADRYL) injection 25 mgJump to med 25 mg, Intravenous, EVERY 6 HOURS PRN, i tching, Give IV only if unable to take PO, Administer over 1-2 Minutes, Starting Fri12/25/16 at 0352
For ordered doses up to 50 mg, give IV Push undilute d. Give each 25mg over a minimum of 1 mi nute. Extend in non-emergency
Post-procedure documented in this encounter Care Teams Delivery Director Relationship Specialty Start Date End Date Luis Fernando Magana PCP - General Family Practice 12/07/16 01/19/18 [place] [id number] documented as of this encounter
--- OUTSIDE RECORDS SUMMARY | 2021-11-10 00:42 | XMS_ITS | Encounter Summary ---
:1980 Author Organization [place] Address [facility] 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 pharmacy. Laura Fried RN OLATE TEMPERER Telephone Encounter - Edgar Alfredo MD - 01/03/2017 12:43 PM CST Please call in Subutex ordered OLATE TEMPERER Telephone Encounter - Laura Fried RN - 12/27/2016 7:55 AM CST Controlled Substance Refill Request for Subutex Last refill: 12/05/16, 120 tablets, 24 day supply Last clinic visit: 10/10/16 Next appt: 01/23/17 Controlled substance agreement on file: No. Documentation in problem list reviewed: Yes Processing: Fax Rx to pt's pharmacy RX monitoring program ([place]) reviewed: SHARED SERVICES MANAGER reviewed- no concerns [place] profile: [email or web address] Thank you! Laura Fried RN OLATE TEMPERER Telephone Encounter - Mark Roldan - 12/26/2016 4:46 PM CST Pt called she had her baby early and she will be discharging from the hospital tomorrow, pt requesting a bridge of Subutex and Welbutrin until her next appt on 01/23. Pt contact info: [phone] Mark Roldan Supervisor [employer]ounding [employer] Finishing OLATE TEMPERER documented in this encounter Plan of Treatment Upcoming Encounters Date Type Specialty Care Team Description 11/15/2021 Office Visit Wound Care Luis Camara, [place] [address] [place] [address] (Wo rk) documented as of this encounter Visit Diagnoses Diagnosis Major depressive disorder, recurrent epi sode, moderate (H) Major depressive disorder, recurrent epi sode, moderate Uncomplicated opioid dependence (H) Opioid type dependence, unspecified documented in this encounter Care Teams Custodial Maintenance Worker Relationship Specialty Start Date End Date Luis Fernando Magana PCP - General Family Practice 12/07/16 01/19/18 [place] [address] documented as of this encounter
--- OUTSIDE RECORDS SUMMARY | 2021-11-10 00:42 | XMS_ITS | Encounter Summary ---
:1980 Author Organization [place] [facility] Address [facility]ly [facility], [facility] [place] [address] Care Team Providers Name Role Phone Luis Fernando Magaan Primary Care Provider Reason for Visit Auth/Cert Specialty Diagnoses / Procedures Referred By Contact Refer red To Contact baffle mounter Diagnoses Maternity*JEAN MARIE: 03/07/2017 Rupture premature rupture of membranes (PPROM) delivered, current hospitalization [facility] [address] [place] [address] Phone: Referral ID Status Reason Start Date Expiration Date Visits Requ ested Visits Authorized [id number] 12/09/2016 12/09/2017 1 1 Encounter Details Date Type Department Care Team Description 12/24/2016 Anesthesia Event [facility] Genesis Phillip M D PeriOp Services Ann Marie Walker MD [address] [place], [place] [address] [address] [place] [address] Anesthesia Record Procedure Summary Procedure Name Responsible Anesthesia Start Anesthesia Stop Anesthesiologist Time Time Section Genesis Phillip MD 12/24/16193412/25/16 0019 Immediate Hysterectomy, Bilateral Salpingectomy and Cystoscopy. Baby Boy born at 20:05 (N/A Abdomen) Events Date Time Event Comment 12/24/20161934 An Start 1934 An Start Data 1941 An Induction 1956 An Intubation 1956 an tomas now 2001 Uterine Incision 2005 Baby Delivered 2005 Placenta Delivered 2335 2358 AN Extubation 12/25/2016 0003 an stop data 0019 An Stop Electronically s igned by Ann Marie Hazel on December 25, 2016 12:19 AM Name Total midazolam 1mg/mL 4 mg fentaNYL (SUBLIMAZE) injection 200 mcg propofol (DIPRIVAN) injection 10 mg/mL vial 200 mg rocuronium 10mg/mL 110 mg ondansetron 2mg/mL 4 mg ePHEDrine 5 mg/mL 25 mg phenylephrine (VINCENT-SYNEPHRINE) injection 1 mg 750 mcg sugammadex 500 mg/5ml 170 mg succinylcholine 20mg/mL 200 mg ceFAZolin vial 1gm 4 g oxytocin (PITOCIN) 30 units in 500 mL 0.9% NaCl infusi on 480 mL calcium chloride 10% 3 g HYDROmorphone 1 mg/mL 2 mg bupivacaine liposome (EXPAREL) 1.3 % LA inj susp 20 mL 20 mL bupivacaine 0.25% with EPINEPHrine 1:200,000 20 mL lactated ringers infusion 1,300 mL sodium chloride 0.9% 3,500 mL Agents Name NO HELIOX O2 N2O Air Exp Sevoflurane Exp Isoflurane Exp Desflurane Exp N2O Ins Sevoflurane Ins Isoflurane Ins Desflurane O2 Auxiliary Blood Name Total PRBC 3,300 mL FFP 212 mL PLATELETS 198 mL CRYOPRECIP 100 mL Lines, Drains, and Airways Type Details Placement Removal Peripheral IV 12/22/16; 1545; 18 G; 12/22/16 1545 by 12/25/16 2102 by Left; Upper forearm; Selena Rodriguez RN [place], Lela johnson RN Chlorhexidine; Tolerated well Peripheral IV 12/24/16; 1855; 18 G; 12/24/16 1855 by 12/25/16 1910 by Right; Upper forearm; Juanis Henson, RN Binh Hidalgo RN Chlorhexidine; Tolerated well Urethral Catheter 12/24/16; 1948; No; 12/24/16 1948 by 12/25/16 1545 by /GI/WORKFORCE CONSULTANT Pelvic Kassy Monteiro RN Drake, Vicki A high school guidance counselor; 16 fr RETIRED ETT 12/24/16; 1956; Mask 12/24/161956 by 12/24/16 2 358 by Ventilation: Not Erika Tobar Eliza beth attempted (RSI); Ease FARZANA Alvarez CRNA, MD of Intubation: Easy; Airway Size: 7; Cuffed; Oral; Blade Type: C-Mac; Blade Size: 3; Place by: Jon Hazel; Insertion Attempts: 1; Secured at (cm)to lip: 22 cm; Breath Sounds: Equal, clear and bilateral; End Tidal CO2: Present; Dentition: Intact; Grade View of Cords: 1 (Direct view not attempted); Airway Adjuncts: C-Mac Peripheral IV 12/24/16; 2101; 18 G; 12/24/162101 by 12/25/16 1000 by Left; Lower forearm Erika Tobar Vic ki A, RN Lynn, APRN CRNA Arterial Line 12/24/16; 210; 12/24/16 210 by 12/25/16 0100 b y 12/25/16; 0100 Erika Tobar Vicki A, RN Lynn, APRN CRNA Incision/Surgical Site 12/24/16; 2255; 12/24/16 2255 by 03/08/20 0104 by Midline; Abdomen; Kassy Monteiro RN Inpatient, Nurse 03/08/20; 0104 Incision/Surgical Site 12/24/16; 2313; 12/24/16 2313 by 12/25/16 0940 by Bilateral; Abdomen; Kassy Monteiro RN Hoffman- Elier, 12/25/16; 0940 GENARO Gongora documented in this encounter Social History Tobacco [...] at Date Recorded Female 01/14/2020 10:57 AM PIPE LINE REPAIRER documented as of this encounter OR Notes Anesthesia Postprocedure Evaluation - Genesis Phillip MD - 12/25/2016 2:40 AM PIPE LINE REPAIRER Patient: Stephani King Procedure(s): Section Immediate Hysterectomy, Bilateral Salpingectomy and Cystoscopy. Baby Boy born at 20:05 - Wound Class: II-Clean Contaminated Diagnosis: Diagnosis Additional Information: No value filed. Anesthesia Type: General, ETT, RSI Note: Anesthesia Post Evaluation Patient location during evaluation: PACU Patient participation: Able to fully participate in evaluation Level of consciousness: awake and alert Pain management: adequate Airway patency: patent Cardiovascular status: acceptable Respiratory status: acceptable Hydration status: acceptable PONV: none Last vitals: Vitals: 12/25/16 0200 12/25/16 0215 12/25/16 0230 BP: 114/81 125/83 114/76 Pulse: Resp: 14 13 20 Temp: 36.9 ??C (98.4 ??F) SpO2: 97% 97% 100% Electronically Signed By: Genesis Phillip MD December 25, 2016 2:40 AM LINE REPAIRER Anesthesia Procedure Notes - Genesis Phillip MD - 12/25/2016 12:20 AM CSTAssociated Order(s): ANE UU PERIPHERAL/PARAVETEBRAL BLOCK Peripheral Nerve Block Procedure Note Staff: Anesthesiologist: GENESIS PHILLIP Resident/ROLL CARRIER: ANN MARIE HAZEL Block performed by resident/ROLL CARRIER in the presence of a teaching physician Location: OR AFTER induction Procedure Start/Stop TImes: patient identified, IV checked, site marked, risks and benefits discussed, informed consent, monitors and equipment checked, pre-op evaluation, at physician/surgeon's request and post-op pain management Correct Patient: Yes Correct Position: Yes Correct Site: Yes Correct Procedure: Yes Correct Laterality: Yes Site Marked: Yes Procedure details: Procedure: TAP ASA: 2 Diagnosis: C section, post op pain Laterality: Bilateral Position: Supine Sterile Prep: Betadine, chloraprep, mask and sterile gloves Needle: Short bevel Needle gauge: 22 Needle length (inches): 4 Ultrasound: Yes Ultrasound used to identify targeted nerve, plexus, or vascular structure and placed a needle adjacent to it Permanent Image entered into patiient's record Abnormal pain on injection: No Blood Aspirated: No Paresthesias: No Bleeding at site: No Infusion Method: Single Shot Complications: None LINE REPAIRER Anesthesia Preprocedure Evaluation - Genesis Phillip MD - 12/24/2016 11:25 PM PIPE LINE REPAIRER Anesthesia Evaluation . Pt has had prior anesthetic. Type: General and Regional ROS/MED HX ENT/Pulmonary: (+)tobacco use, Current use , . . Neurologic: (+)migraines, Cardiovascular: METS/Exercise Tolerance: Hematologic: Musculoskeletal: GI/Hepatic: (+) hepatitis type C, Renal/Genitourinary: Endo: (+) thyroid problem hypothyroidism, . Psychiatric: (+) psychiatric history anxiety and depression Infectious Disease: Malignancy: Other: Comment: 36 year old at 29w6d admitted at 29 wks for PPROM now with new vaginal bleeding and active labor requiring emergent c/s. Pt also with known placenta previa and possible accreta. Pt has h/o uterine rupture with TOLAC in previous . (+) Possibly Physical Exam Airway Mallampati: II TM distance: >3 FB Neck ROM: full Dental (+) other, missing, chipped and partials Cardiovascular Pulmonary Other findings: Very poor dentition; Multiple broken, chipped, irregular Anesthesia Plan History & Physical Review ASA Status: 2 emergent. NPO Status: Full stomach Plan for General, ETT and RSI with Intravenous induction. Maintenance will be Balanced. PONV prophylaxis: Ondansetron (or other 5HT-3) and Dexamethasone or Solumedrol Additional equipment: 2nd IV, Arterial Line and Videolaryngoscope Postoperative Care Postoperative pain management: Multi-modal analgesia. Plan for postoperative opioid use. Consents Anesthetic plan, risks, benefits and alternatives discussed with: Patient. Use of blood products discussed: Yes. Use of blood products discussed with Patient. Consented to blood products. . LINE REPAIRER Anesthesia Procedure Notes - Erika Tobar APRN CRNA - 12/24/2016 9:12 PM CSTAssociated Order(s): ANE UU A LINE CATHETER PLACEMENT Arterial Line Procedure Note Staff: Anesthesiologist: GENESIS PHILLIP Resident/ROLL CARRIER: ANN MARIE HAZEL Arterial line performed by resident/ROLL CARRIER in presence of a teaching physician Location: In OR After Induction Procedure Start/Stop Times: patient identified, IV checked, site marked, risks and benefits discussed, informed consent, monitors and equipment checked, pre-op evaluation and at physician/surgeon's request Correct Patient: Yes Correct Position: Yes Correct Site: Yes Correct Procedure: Yes Correct Laterality: Yes Site Marked: Yes Line Placement: Procedure: Arterial Line Insertion Site: Radial Insertion laterality: Left Skin Prep: Chloraprep Patient Prep: patient draped, mask, sterile gloves, hat and hand hygiene Catheter size: 20 gauge, Quick cath Cath secured with: other (comment) Dressing: Tegaderm Complications: None obvious Arterial waveform: Yes IBP within 10% of NIBP: Yes LINE REPAIRER documented in this encounter Miscellaneous Notes Anesthesia Care Transfer Note - Ann Marie Hazel MD - 12/25/2016 12:22 AM CST Patient: Stephani King Procedure(s): Section Immediate Hysterectomy, Bilateral Salpingectomy and Cystoscopy. Baby Boy born at 20:05 - Wound Class: II-Clean Contaminated Diagnosis: Diagnosis Additional Information: No value filed. Anesthesia Type: General, ETT, RSI Note: Airway :Face Mask Patient transferred to:PACU Comments: Patient transferred to PACU breathing spontaneously with O2 via face mask. HDS in PACU. Complaining of some pain and 0.5 IV dilaudid administered. Report given to RN. Handoff Report: Identifed the Patient, Identified the Reponsible Provider, Reviewed the pertinent medical history, Discussed the surgical course, Reviewed Intra-OP anesthesia mangement and issues during anesthesia, Set expectations for post-procedure period and Allowed opportunity for questions and acknowledgement of understanding Vitals: (Last set prior to Anesthesia Care Transfer) BUBBA VITALS 12/24/2016 2333 - 12/25/2016 0022 12/25/2016 Pulse: 85 SpO2: (!) 88 % Electronically Signed By: Ann Marie Hazel MD December 25, 2016 12:22 AM LINE REPAIRER documented in this encounter Plan of Treatment Upcoming Encounters Date Type Specialty Care Team Description 11/15/2021 Office Visit Wound Care Luis Camara, DPM [address] [place] [address] (Wo rk) documented as of this encounter Procedures Procedure Name Priority Date/Time Associated Diagnosis Comme nts ANE Routine 12/25/2016 12:22 AM PIPE LINE REPAIRER PERIPHERAL/PARAVETEBRAL BLOCK Procedure Note - Genesis Phillip MD - 12/25/2016 12:20 AM CSTThis note is in progress. Formatting of this note migh t be different from the original. Peripheral Nerve Block Proce dure Note Staff: Anesthesiologist: JOSELUIS PHILLIP Resident/ROLL CARRIER: IMELDA HAZEL Block performed by resident /ROLL CARRIER in the presence of a teaching physician Location: OR AFTER induction Procedure Start/Stop TImes: patient identified, IV chec ked, site marked, risks and benefits discussed, informed consent, monitors and equipment checked, pre-op evaluation, at physician/surgeon's request and post-op pain management Correct Patient: Yes Correct Position: Yes Correct Site: Yes Correct Procedure: Yes Correct Laterality: Yes Site Marked: Yes Procedure details: Procedure: TAP ASA: 2 Diagnosis: C section, post op pain Laterality: Bilateral Position: Supine Sterile Prep: Betadine, chl oraprep, mask and sterile gloves Needle: Short bevel Needle gauge: 22 Needle length (inches): 4 Ultrasound: Yes Ultrasound used to identify targeted nerve, plexus, or vascular structure and placed a needle adjacent to it Permanent Image entered int o patiient's record Abnormal pain on injection: No Blood Aspirated: No Paresthesias: No Bleeding at site: No Infusion Method: Single Kristen t Complications: None ANE A LINE CATHETER PLACEMENT Routine 12/24/2016 9:12 PM PIPE LINE REPAIRER Procedure Note - Km Tobar APRN ROLL CARRIER - 12/24/2016 9:12 PM CSTThis note is in progress. Formatting of this note migh t be different from the original. Arterial Line Procedure Note Staff: Anesthesiologist: JOSELUIS PHILLIP Resident/ROLL CARRIER: IMELDA HAZEL Arterial line performed by resident/ROLL CARRIER in presence of a teaching physician Location: In OR After Induct ion Procedure Start/Stop Times: patient identified, IV chec ked, site marked, risks and benefits discussed, informed consent, monitors and equipment checked, pre-op evaluation and at physician/surgeon's request Correct Patient: Yes Correct Position: Yes Correct Site: Yes Correct Procedure: Yes Correct Laterality: Yes Site Marked: Yes Line Placement: Procedure: Arterial Line Insertion Site: Radial Insertion laterality: Left Skin Prep: Chloraprep Patient Prep: patient drape d, mask, sterile gloves, hat and hand hygiene Catheter size: 20 gauge, Qu ick cath Cath secured with: other (c omment) Dressing: Tegaderm Complications: None obvious Arterial waveform: Yes IBP within 10% of NIBP: Yes documented in this encounter Visit Diagnoses Not on filedocumented in this encounter Administered Medications Active Administered Medications - up to 3 most recent administrations Medication Order MAR Action Action Date Dose Rate Site Transfuse red blood cell unit New Bag 12/24/2016 10:05 PM PIPE LINE REPAIRER STAT, On Fri12/24/16 at 1940 New Bag 12/24/2016 8:10 PM PIPE LINE REPAIRER Transfuse red blood cell unit New Bag 12/24/2016 8:15 PM PIPE LINE REPAIRER STAT, On Fri12/24/16 at 1941 Inactive Administered Medications - up to 3 most recent administrations Medication Order MAR Action Action Date Dose Rate Site 0.9% sodium chloride infusion New 12/24/2016 10:04 PM PIPE LINE REPAIRER CONTINUOUS PRN, Anesthesia Intra-op, Starting on Fri12/24/16 at 1943, Until Fri12/25/16 at 0019 New Bag 12/24/2016 9:42 PM PIPE LINE REPAIRER New Bag 12/24/2016 7:43 PM PIPE LINE REPAIRER bupivacaine 0.25 % - EPINEPHrine 1:200,000 Given 12/24/2016 11:50 PM PIPE LINE REPAIRER 20 mLs injection PRN, Starting on Fri12/24/16 at 2350, Anesthesia Intra-op bupivacaine liposome (EXPAREL) 1.3 % LA inj Given 08/2016 11:50 PM PIPE LINE REPAIRER 20 mLs susp 20 mL 20 mL, Infiltration, DURING SURGERY, Starting on Fri12/24/16 at 2136, For 1 dose, Invert vial to re-suspend particles immediately prior to withdrawal from vial. Stable for 4 hours at room temperature once removed from vial., Intra-procedure calcium chloride injection Given 12/24/2016 9:53 PM PIPE LINE REPAIRER 1 g PRN, Starting on Fri12/24/16 at 2037, Anesthesia Intra-op Given 12/24/2016 8:57 PM PIPE LINE REPAIRER 1 g Given 12/24/2016 8:37 PM PIPE LINE REPAIRER 1 g ceFAZolin (ANCEF) 1 g vial to attach to NS 100 Given 02/24/2016 11:21 PM PIPE LINE REPAIRER 1 g ml bag for ADULT or 50 ml bag for PEDS Routine, Intravenous, PRN, Starting on Fri12/24/16 at 1939, Anesthesia Intra-op Given 12/24/2016 9:07 PM PIPE LINE REPAIRER 1 g Given 12/24/2016 7:39 PM PIPE LINE REPAIRER 2 g ePHEDrine injection Given 12/24/2016 8:58 PM PIPE LINE REPAIRER 5 mg Intravenous, PRN, Starting on Fri12/24/16 at 2023, Anesthesia Intra-op Given 12/24/2016 8:35 PM PIPE LINE REPAIRER 10 mg Given 12/24/2016 8:24 PM PIPE LINE REPAIRER 10 mg fentaNYL (PF) (SUBLIMAZE) injection Given 12/24/2016 11:12 PM PIPE LINE REPAIRER 100 mcg PRN, moderate to severe pain, Administer over 3-5 Minutes, Starting on Fri12/24/16 at 2259, Anesthesia Intra-op Given 12/24/2016 10:59 PM PIPE LINE REPAIRER 100 mcg HYDROmorphone (DILAUDID) injection Given 12/25/2016 12:15 AM PIPE LINE REPAIRER 0.5 mg PRN, moderate to severe pain, Starting on Fri12/24/16 at 2301, Anesthesia Intra-op Given 12/25/2016 12:02 AM PIPE LINE REPAIRER 0.5 mg Given 12/24/2016 11:05 PM PIPE LINE REPAIRER 0.5 mg lactated ringers infusion New Bag 12/24/2016 8:17 PM PIPE LINE REPAIRER at 125 mL/hr, Intravenous, CONTINUOUS, Pre-procedure, Starting on Fri12/24/16 at 1900, Until Fri12/25/16 at 0150 New Bag 12/24/2016 7:35 PM PIPE LINE REPAIRER midazolam (VERSED) injection Given 12/24/2016 9:16 PM PIPE LINE REPAIRER 2 mg Intravenous, Administer over 2 Minutes, PRN, anxiety, Starting on Fri12/24/16 at 2029, Anesthesia Intra-op Given 12/24/2016 8:29 PM PIPE LINE REPAIRER 2 mg ondansetron (ZOFRAN) injection Given 12/24/2016 11:29 PM PIPE LINE REPAIRER 4 mg Intravenous, PRN, nausea, vomiting, Administer over 2-5 Minutes, Starting on Fri12/24/16 at 2329, Anesthesia Intra-op oxytocin (PITOCIN) 30 units in New 12/24/2016 8:05 PM PIPE LINE REPAIRER 300 mL/hr 300 mL/hr 500 mL 0.9% NaCl infusion CONTINUOUS PRN, Starting on Fri12/24/16 at 2004, Anesthesia Intra-op phenylephrine (VINCENT-SYNEPHRINE) injection 1 Bolus 12/24/2016 9:33 PM PIPE LINE REPAIRER 100 mcg mg 1 mg, Intravenous, CONTINUOUS PRN, Starting on Fri12/24/16 at 2012, Anesthesia Intra-op Bolus 12/24/2016 9:23 PM PIPE LINE REPAIRER 100 mcg Bolus 12/24/2016 9:13 PM PIPE LINE REPAIRER 100 mcg propofol (DIPRIVAN) injection 10 mg/mL v ial Given 12/24/2016 7:56 PM PIPE LINE REPAIRER 200 mg Intravenous, PRN, Starting on Fri12/24/16 at 1956, Anesthesia Intra-op rocuronium (ZEMURON) injection Given 12/24/2016 10:12 PM PIPE LINE REPAIRER 10 mg Intravenous, PRN, Starting on Fri12/24/16 at 2006, Anesthesia Intra-op Given 12/24/2016 9:28 PM PIPE LINE REPAIRER 30 mg Given 12/24/2016 8:54 PM PIPE LINE REPAIRER 20 mg succinylcholine (ANECTINE) injection Given 12/24/2016 7:56 PM PIPE LINE REPAIRER 200 mg Intravenous, PRN, Starting on Fri12/24/16 at 1956, Anesthesia Intra-op sugammadex (BRIDION) injection Given 12/24/2016 11:50 PM PIPE LINE REPAIRER 170 mg PRN, Starting on Fri12/24/16 at 2350, Anesthesia Intra-op Transfuse cryoprecipitate unit New 12/24/2016 11:10 PM PIPE LINE REPAIRER Routine, On Fri12/24/16 at 2311 Transfuse plasma unit New 12/24/2016 8:48 PM PIPE LINE REPAIRER Routine, On Fri12/24/16 at 8 Transfuse platelets unit New 12/24/2016 9:19 PM PIPE LINE REPAIRER Routine, On Fri12/24/16 at 2119 Transfuse red blood cell unit New Bag 12/24/2016 8:42 PM PIPE LINE REPAIRER STAT, On Fri12/24/16 at 2034 Transfuse red blood cell unit New Bag 12/24/2016 9:30 PM PIPE LINE REPAIRER STAT, On Fri12/24/16 at 2046 Transfuse red blood cell unit New Bag 12/24/2016 8:59 PM PIPE LINE REPAIRER STAT, On Fri12/24/16 at 204 Transfuse red blood cell unit New Bag 12/24/2016 8:58 PM PIPE LINE REPAIRER STAT, On Fri12/24/16 at 2046 Transfuse red blood cell unit New Bag 12/24/2016 8:47 PM PIPE LINE REPAIRER STAT, On Fri12/24/16 at 2046 Transfuse red blood cell unit New Bag 12/24/2016 10:15 PM PIPE LINE REPAIRER STAT, On Fri12/24/16 at 2156 Transfuse red blood cell unit New Bag 12/24/2016 10:50 PM PIPE LINE REPAIRER STAT, On Fri12/24/16 at 2156 Transfuse red blood cell unit New Bag 12/24/2016 9:56 PM PIPE LINE REPAIRER STAT, On Fri12/24/16 at 2156 documented in this encounter Care Teams Taxation Accountant Relationship Specialty Start Date End Date Luis Fernando Magana PCP - General Family Practice 12/07/16 01/19/18 [place] [address] documented as of this encounter
--- OUTSIDE RECORDS SUMMARY | 2021-11-10 00:43 | XMS_ITS | Encounter Summary ---
:1980 Author Organization [facility] Address [address] [place] [address] Care Team Providers Name Role Phone Luis Fernando Magana Primary Care Provider Reason for Visit Reason Comments Rule out rupture of membranes Auth/Cert Specialty Diagnoses / Procedures Referred By Contact Refer red To Contact citrix administrator Diagnoses Maternity*JEAN MARIE: 03/07/2017 Rupture premature rupture of membranes (PPROM) delivered, current hospitalization [facility] [address] [place] [address] Phone: Referral ID Status Reason Start Date Expiration Date Visits Requ ested Visits Authorized [id number] 12/09/2016 12/09/2017 1 1 Encounter Details Date Type Department Care Team Description 12/24/2016 Surgery [facility] So Nunez Moraima, Section Immediate PeriOp Services Hysterectomy, Bilateral [address] [place] [address] ILANA 300 Cystoscopy. Baby Boy born [phone] [place], [place] at 20:05 [id number] Surgery Details Date/Time Status Location OR Service Patient Class Case Case Trauma Class Type Case? 12/24/16 8:00 Posted UR OR UR OR Obstetrics Inpatient PM 17 Panel 1 Procedure LRB Anes Op Region Wound Class Commen ts Section N/A Abdomen II-Clean Contaminat ed Section Immediate Hysterectomy, I mmediate Bilateral Salpingectomy H ysterectomy, and Cystoscopy. Baby Bila teral Boy born at 20:05 Salping ectomy and Cystoscopy. Ba by Boy born at 20:05 Surgeon Surgeon Role Service Panel So Nunez MD Primary Obstetrics 1 Tatyana Walsh MD Resident - Assisting 1 Kayla Davidson MD Resident - Assisting 1 Petrona Barone DO Assisting Obstetrics 1 Marilu Lam MD Assisting Gynecology Oncology 1 Margarita Talbert MD Assisting Gynecology Oncology 1 documented in this encounter Social History [...] at Date Recorded Female 01/14/2020 10:57 AM EVENTS INTERN documented as of this encounter Last Filed Vital Signs Vital Sign Reading Time Taken Comments Blood Pressure 112/68 12/24/2016 4:00 PM EVENTS INTERN Pulse 101 12/19/2016 12:39 PM CDT Temperature 36.7 ??C (98 ??F) 12/24/2016 4:00 PM EVENTS INTERN Respiratory Rate 18 12/24/2016 4:00 PM EVENTS INTERN Oxygen Saturation - - Inhaled Oxygen Concentration - - Weight 83.9 kg (185 lb) 12/24/2016 6:25 AM EVENTS INTERN Height 167.6 cm (5' 6) 12/07/2016 2:19 PM CDT Body Mass Index 29.68 12/07/2016 2:19 PM CDT documented in this encounter Discharge Summaries Petrona Barone DO - 12/27/2016 8:18 AM CST [facility] Discharge Summary Deann King Age: [age] year [...] uterus. 2. Scant clear??amniotic fluid. 3. Liveborn male??infant in OA??presentation delivered through classical uterine incision. [...] uncomplicated. She was initially given a dilaudid SEMICONDUCTOR WAFERS ETCH OPERATOR, but was transitioned to PO medications on [...] Discharge Medications: Deann King Home Medication Instructions MAILE:[id number] Printed on:12/28/16 3432 Medication Information acetaminophen (TYLENOL) 325 MG tablet [...] machinery while on narcotics. Marleny Kang MD [facility] PGY-3 I agree with above discharge summary Petrona Barone DO FACOG Maternal Medicine Specialist Pager: [phone] TS INTERN documented in this encounter Discharge Instructions Discharge InstructionsErika Villalpando RN - 12/27/2016 7:51 AM EVENTS INTERN Postop Instructions Activity ?? Do not lift [...] questions or concerns after you return home. TS INTERN documented in this encounter Medications at Time [...] of this encounter Progress Notes Lupillo Lundy, TUSHAR - 12/27/2016 3:26 PM CST D) SW following John and his family while he [...] work. Deann and John are on [facility]. John will be on WIC. At this time Deann has a car seat without a base for the baby. Deann mentioned she has a director social Francisco who helps them with the children. SW spoke with [facility] and they report that the family has been assigned to [place] [phone] who is pillowcase sewer with CPS ongoing. (Francisco is out of office until 01/27/17, this writer editor left ). Deann has history of substance use disorder and has been sober for 8 years. She is followed closely by Dr. Alfredo and is on Subutex. Deann also struggles with anxiety and depression, at this time she reports she is doing well. I)SW confirmed with pt's [facility] [phone] that Deann is able to schedule one [...] of ages 5 and up to visit. SW spoke with NICU medical coding manager and SW informed Deann that an exception would not be made. SW left [facility] at bedside for Deann to sign so that this writer editor can coordinate care with [facility] director social Francisco. A)SW spoke with JOSSE Styles via phone. She expresses being sad about [...] from NICU John's 12/24/16 chart on 01/23/17 TS INTERN Petrona Barone DO - 12/27/2016 5:20 AM CST [facility] Post- Note Name: Deann King S: Patient [...] given massive transfusion. UOP adequate. BMP wnl (12/25). - S/p ancef in OR and 24 hours of gent/clinda for additional prophylaxis. - Plan to discharge home with iron supplement. ?? 2. Routine management: Pain: S/p TAP blocks and SEMICONDUCTOR WAFERS ETCH OPERATOR. Scheduled ibuprofen and tylenol. PO oxycodone 20 [...] plan regarding pain management Marleny Kang MD Block Press Operator, PGY-3 Physician Attestation Petrona Powers DO, [...] regarding post c/hyst, opioid dependence, discharge instructions. TS INTERN Petrona Barone DO - 12/26/2016 6:42 AM CST [facility] Note Name: Deann King S: Patient is doing okay this morning; [...] Routine management: Pain: S/p TAP blocks and SEMICONDUCTOR WAFERS ETCH OPERATOR. Scheduled toradol, tylenol. PRN IV dilaudid and [...] home effexor and wellbutrin. S/p psych consult. following patient. Will follow-up for mood check. Dispo: Anticipate discharge home POD#4, pending pain control and meeting postoperative goals Marleny Kang MD Block Press Operator, PGY-3 Physician Attestation I, Petrona Barone DO, saw [...] patient): 12/26/16 Time Spent on this Encounter I, Petrona Barone DO, spent a total of 15 minutes face to face or coordinating care of Reji King. Over 50% of my time on the unit was spent counseling the patient and/or coordinating care regarding postop care from c/hyst. TS INTERN Marleny Kang MD - 12/25/2016 9:54 PM [...] oximetry, discussed with RN. Marleny Kang MD [facility] PGY-3 TS INTERN Marilu Lam MD - 12/25/2016 9:38 PM CST I have seen and examined this patient this AM (note delayed). She is HD stable and tolerating her recovery to date. WE have discussed the implication of her surgery and she is aware that she will not be able to have additional children, but is grateful to be feeling well. Marilu Lam TS INTERN Petrona Barone DO - 12/25/2016 5:44 AM CST [facility] Note Name: Deann King S: Patient is [...] src Heart Rate Resp SpO2 Weight 12/25/16 0500 - - - - - 97 [...] b/l I/O last 3 completed shifts: In: 13523 [I.V.:4800] Out: 5900 [Urine:900; Blood:5000] Hgb: Hemoglobin [...] 2. cares: Pain: S/p TAP blocks. Dilaudid SEMICONDUCTOR WAFERS ETCH OPERATOR with scheduled tylenol. Holding NSAIDs until Hgb [...] Hypothyroidism: - Continue synthroid. Marleny Kang MD Block Press Operator, PGY-3 Physician Attestation I, Petrona Barone DO, saw and evaluated Deanndelon King with the resident. I personally reviewed [...] tolerance. Labs stable. Toradol given now. Increase SEMICONDUCTOR WAFERS ETCH OPERATOR to 0.3mg continuous with 0.3-0.5mg bumps. Total [...] regarding post op pain, recovery plan, etc. TS INTERN Marleny Kang MD - 12/25/2016 2:56 AM CST [facility] Note Name: Deann King S: Patient seen [...] b/l I/O last 3 completed shifts: In: 42177 [I.V.:4800] Out: 5900 [Urine:900; Blood:5000] Hgb: Hemoglobin [...] 2. cares: Pain: S/p TAP blocks. Dilaudid SEMICONDUCTOR WAFERS ETCH OPERATOR with scheduled tylenol, will increase demand dose. Holding NSAIDsuntil Hgb stabilizes. Continue home subutex for history of substance abuse. Supportive measures including warm packs, abdominal binder. GI: CLD, advance as tolerated. Scheduled bowel regimen ordered. : Duarte in place, strict Is/Os. Daily weights. Rh: Positive. Rubella: Non-immune, MMR ordered. Mood: Continue home effexor, wellbutrin. SW is following patient. Marleny Kang MD Block Press Operator, PGY-3 12/25/2016, 2:28 AM TS INTERN Yareli Greenwood RN - 12/24/2016 8:35 PM CST This [...] Dr. Barone M staff and Dr. Nunez [facility] staff were notified. Delivery plan was confirmed [...] OR notified, proceed urgently. Marleny Kang MD [facility] BR[facility]HER PGY-3 MFM staff note: Called regarding change in clinical status for patient. Delivery indicated in the setting of pretermcervical dilation, hemorrhage with known posterior placenta previa/possible accreta and prolonged ROM. S/p BMZ nearly 2 weeks ago. Magnesium sulfate for ANALYTICAL ENGINEER recommended. Type and cross with blood in OR. Petrona Barone DO FACOG Maternal Medicine Specialist Pager: [phone] TS INTERN Petrona Barone DO - 12/24/2016 10:18 AM CST MFM Antepartum Progress Note Subjective: [...] 0922 BP: 114/58 97/49 108/56 Pulse: Resp: Temp: 97.7 ??F (36.5 ??C) 97.5 ??F [...] 140s, moderate variability, present accels, absent decels [place]: no contractions or irritability noted Imaging: See [...] bleeding. Plan c-hyst unless previa resolves with [facility] double staff. - Care conference scheduled [...] million. Needs follow up with GI or Lead Tinner for treatment options . - Notify NICU [...] with Dr. Barone. Tatyana Walsh MD MPH [facility], PGY3 Pager: [phone] 12/23/2016 10:04 AM Physician Attestation IPetrona DO, saw and evaluated [...] patient): 12/24/16 Time Spent on this Encounter Petrona Powers DO, spent a total of 15 minutes face to face or coordinating care of Reji King. Over 50% of my time on the unit was spent counseling the patient and/or coordinating care regarding PPROM, complete previa. Marleny Jha MD - 12/23/2016 11:56 PM CST OB [...] team of new symptoms. Marleny Kang MD [facility] PGY-3 Petrona Tinoco DO - 12/23/2016 10:04 AM CST MFM Antepartum Progress Note Subjective: She is doing ok. States pain on the right side of her tongue where her tooth is rubbing against the tongue. No jaw or actual tooth pain. Taking tylenol for pain with only minimal relief. No contractions or tightening or abdominal pain. No VB. Positive movement. Objective: Vitals: 12/22/16 2001 12/22/16 2316 12/23/16 0546 12/23/16 0648 BP: 103/54 [...] 130s, moderate variability, present accels, absent decels [place]: quiet, no contractions Assessment/Plan: Deann King is [...] bleeding. Plan c-hyst unless previa resolves with [facility] double staff. ? 3) FWB: - [...] - Needs follow up with GI or Lead Tinner for treatment options . ? 5) History [...] with Dr. Barone. Tatyana Walsh MD MPH [facility], PGY3 Pager: [phone] 12/23/2016 10:04 AM Physician Attestation IPetrona DO, saw and evaluated Deann King with the resident. I personally reviewed the vital signs, medications, labs and imaging. My vigil history or physical exam findings: Patient denies bleeding. Yellowish non odorous amniotic fluid leaking. +FM. No contractions. Vigil management decisions made by me: Continue current care Care conference/delivery conference planned for Friday IV at all times, current T&S Mon/Thurs assessment with US Petrona Barone DO Date of Service (when I saw the patient): 12/23/16 Time Spent on this Encounter IPetrona DO, spent a total of 15 minutes face to face or coordinating care of Reji King. Over 50% of my time on the unit was spent counseling the patient and/or coordinating care regarding placenta previa/PPROM, possible accreta. TS INTERN Nora Mohamud MD - 12/22/2016 10:45 AM [...] C - s/p GI at [place] in 2013, genotype 1a - normal LFTs [...] patient): December 22, 2016 Nora Mohamud MD Sales Consulting Director, [facility] Maternal- Medicine [email or web address] [phone] (Academic office) [phone] (Pager) TS INTERN Nora Mohamud MD - 12/21/2016 11:52 AM [...] 6. Hepatitis C - s/p GI at [facility] in 2013, genotype 1a, inpatient [...] patient): December 21, 2016 Nora Mohamud MD Sales Consulting Director, [facility] Maternal- Medicine [email or web address] [phone] (Academic office) [phone] (Pager) Apple Sen RD - 12/20/2016 11:41 [...] protocol. Apple Sen RD, LD Unit Pager: [phone] Lashawn Patel MD - 12/20/2016 8:59 AM [...] moderate variability, + accels, rare variable decels [place]: quiet, 0 ctx in 10 minutes Assessment/Plan: [...] bleeding. Plan c-hyst unless previa resolves with [facility] double staff. ? 3. FWB: - [...] - Needs follow up with GI or Lead Tinner for treatment options . ? 5. History [...] accels, absent decels - appropriate for GA. [place]: no contractions No intervention needed at this time. Tatyana Walsh MD MPH [facility], PGY3 Pager: [phone] 12/19/2016 11:56 PM Lashawn Patel MD - [...] 130s, moderate variability, + accels, no decels [place]: quiet, 0 ctx in 10 minutes Assessment/Plan: [...] - Needs follow up with GI or Lead Tinner for treatment options . ? 5. History [...] accels, absent decels - appropriate for GA. [place]: no contractions No intervention needed at this time. Tatyana Walsh MD MPH [facility], PGY3 Pager: [phone] 12/19/2016 3:13 AM LIOT Lashawn Patel MD - 12/18/2016 11:53 AM [...] 130s, moderate variability, + accels, no decels [place]: quiet, 0 ctx in 10 minutes Assessment/Plan: [...] - Needs follow up with GI or Lead Tinner for treatment options . ? 5. History [...] weeks from dose increase. Marleny Kang MD [facility]USHER PGY-3 Physician Attestation I, Lashawn Patel, saw [...] patient): 12/18/16 Time Spent on this Encounter ILashawn, spent a total of 15 minutes bedside [...] from scratching area. Tatyana Walsh MD MPH [facility], PGY3 Pager: [phone] 12/18/2016 12:08 AM Marleny Kang MD - 12/17/2016 12:35 PM CDT [facility] Progress Note Patient complaining of right ear pain. Notes some mild nasal stuffiness. Denies fever, postnasal drip, hearing changes, other signs of systemic illness including fevers. Denies history of ear infection. Gently cleans ears. Otoscopic exam without exudate or signs of infection, clear TM, no tenderness with motion. Will give debrox drops and monitor for symptoms. Marleny Kang MD EDGE BRUSHER PGY-3 Marleny Kang MD - 12/17/2016 11:29 AM CDT [facility] Progress Note Patient seen at bedside to [...] attempt at this time. Marleny Kang MD EDGE BRUSHER PGY-3 Lashawn Patel MD - 12/17/2016 6:56 [...] 12/17/16 0552 BP: 109/58 120/61 Pulse: Resp: 16 18 Temp: 97.6 ??F (36.4 ??C) 98 ??F (36.7 ??C) 98.4 ??F (36.9 ??C) TempSrc: Oral Oral Oral Weight: 82.1 kg (181 lb) Height: Gen: Resting comfortably in bed, NAD CV: Regular rate Resp: Normal respiratory effort Abd: Gravid, non-tender, non-distended Ext: warm, well-perfused FHT: Baseline 150's, moderate variability, + accels, no decels [place]: Quiet Assessment/Plan: Deann King is a 36 [...] - Needs follow up with GI or Lead Tinner for treatment options . ? 5. History [...] See note for details. Lashawn Patel Tatyana Caraballo MD - 12/17/2016 12:54 AM CDT Strip Review FHT: Baseline 150s bpm, moderate variability, present accels, absent decels - appropriate for GA. [place]: no contractions No intervention needed at this time. Tatyana Walsh MD MPH EDGE BRUSHER, PGY3 Pager: [phone] 12/17/2016 Lashawn Patel MD - 12/16/2016 6:54 AM CDT MFM Antepartum Progress Note Subjective: Deann is doing well today. She denies contractions, cramping, abdominal pain, fevers, chills, vaginalbleeding. Notes continued unchanged leakage. Normal movement. Objective: Vitals: 12/15/16 0830 12/15/16 1538 12/15/16 2345 12/16/16 0600 BP: 117/56 108/56 107/57 97/55 Pulse: Resp: Temp: 97.2 ??F (36.2 ??C) 97.4 ??F (36.3 ??C) 97.8 ??F (36.6 ??C) 98.1 ??F (36.7 ??C) TempSrc: Oral Oral Oral Oral Weight: Height: Gen: Resting comfortably in bed, NAD CV: Regular rate Resp: Normal respiratory effort Abd: Gravid, non-tender, non-distended Ext: warm, well-perfused FHT: Baseline 140s, moderate variability, + accels, no decels [place]: 0 ctx in 10 minutes, quiet Assessment/Plan: [...] - Needs follow up with GI or Lead Tinner for treatment options . ? 5. History [...] and acupuncture as needed. Marleny Kang MD [facility]HER PGY-3 Physician Attestation I, Lashawn Patel, saw [...] accels, absent decels - appropriate for GA. [place]: no contractions No intervention needed at this time. Tatyana Walsh MD MPH [facility]HER, PGY3 Pager: [phone] 12/16/2016 2:14 AM Petrona Barone DO - 12/15/2016 12:27 PM CDT MFM [...] 0830 BP: 108/60 117/59 117/56 Pulse: Resp: Temp: 98.5 ??F (36.9 ??C) 98.4 ??F [...] moderate variability, present accelerations (10x10), absent decelerations [place]: No contractions noted 12/03 MR IMPRESSION: 1. [...] - Needs follow up with GI or Lead Tinner for treatment options . ? 5. History [...] patient): 12/15/16 Time Spent on this Encounter I, Petrona [...] 150, moderate variability, present accelerations, absent decelerations [place]: No contractions noted 12/03 MR IMPRESSION: 1. [...] - Twice weekly AFIs and presentation. Next 12/16??(M/Th) - Twice weekly BPPS after 28 weeks. [...] - Needs follow up with GI or Lead Tinner for treatment options . ? 5. History [...] OBGYN PGY-3 12:05 PM 12/14/2016 Physician Attestation Petrona Powers DO, saw and [...] patient): 12/14/16 Time Spent on this Encounter Petrona Powers [...] patient, she is agreeable. 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 Over the past 2 weeks she has [...] protocol. Echo Graham RD, LD Unit Pager: [phone] Nora Mohamud MD - 12/13/2016 8:50 AM [...] variable decels. Overall appropriate for gestational age. [place]: no contractions, quiet ? US (12/08): posterior/left [...] for HD#7??admitted forPPROM. ? 1. PPROM: - D#7/??latency antibiotics. - No s/s of labor, infection. [...] - Needs follow up with GI or Lead Tinner for treatment options . ? 5. History [...] the treatment of hepatitis C with a hog ringer. A consultation was placed to discuss management [...] 6. Hepatitis C - s/p GI at [facility] in 2013, genotype 1a, inpatient [...] patient): December 13, 2016 Nora Mohamud MD Sales Consulting Director, [facility] Maternal- Medicine [email or web address] [phone] (Academic office) [phone] (Pager) Tatyana Walsh MD - 12/13/2016 3:23 AM CDT Strip Review (Not delayed due to patient care) FHT: Baseline 150s bpm, moderate variability, prolonged accels, absent decels - appropriate for GA. [place]: no contractions No intervention required at this time. Tatyana Walsh MD MPH [facility]HER, PGY3 Pager: [phone] 12/13/2016 3:23 AM Jess Bernstein LICSW - 12/12/2016 11:11 AM CDT Met with patient today and completed [employer] application. Application faxed today. SW will continue [...] small decels. Overall appropriate for gestational age. [place]: no contractions, quiet ? US (12/08): posterior/left [...] - Needs follow up with GI or Lead Tinner for treatment options . ? 5. History [...] 6. Hepatitis C - s/p GI at [facility] in 2013, genotype 1a - [...] patient): December 12, 2016 Nora Mohamud MD Sales Consulting Director, [facility] Maternal- Medicine [email or web address] [phone] (Academic office) [phone] (Pager) Tatyana Walsh MD - 12/12/2016 12:53 AM CDT Strip Review (Not delayed due to patient care, services at 2200 on 12/11/2016) FHT: Baseline 140-150s bpm, moderate variability, prolonged accels, absent decels - appropriate for GA. [place]: no contractions No intervention required at this time. Tatyana Walsh MD MPH EDGE BRUSHER, PGY3 Pager: [phone] 12/12/2016 12:53 AM Nora Kovacs, PT - [...] in agreement with plan of care Yes [facility]-PAC TM 6 Clicks ?? 2016, Trustees of [facility], under license to [employer]. All rights reserved. 6 Clicks Short Forms Basic Mobility Inpatient Short Form [facility] AM-PAC??? 6 Clicks V.2 Basic Mobility Inpatient Short [...] small decels. Overall appropriate for gestational age. [place]: no contractions, quiet ? US (12/08): posterior/left [...] Twice weekly AFIs and presentation. Next 12/12 (/) - Twice weekly BPPS after 28 [...] - Needs follow up with GI or Lead Tinner for treatment options . ? 5. History [...] C - s/p GI at [place] in 2013, genotype 1a - normal LFTs [...] patient): December 11, 2016 Nora Mohamud MD Sales Consulting Director, [facility] Maternal- Medicine [email or web address] [phone] (Academic office) [phone] (Pager) Tatyana Walsh MD - 12/10/2016 11:23 PM CDT Strip Review FHT: Baseline 150s bpm, moderate variability, present accels, absent decels - appropriate for GA. [place]: no contractions No intervention needed at this time. Tatyana Walsh MD MPH ED[facility] BRUSHER, PGY3 Pager: [phone] 12/10/2016 11:24 PM Jess Bernstein, [facility] - 12/10/2016 11:49 AM CDT [facility] SOCIAL WORK PROGRESS NOTE DATA: Met with Deann to assess needs and to offer support. Patient is 36 year-old, Deann King. She and her , Rafal have been for two years. They live in subsidized housing in [place], [place]. Deann and Rafal know they are [...] defect and was in the NICU at [facility]. in November 2014 at 5 1/2 months [...] work. 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 Deann did not offer [...] Assistance, talamantes and food assistance benefits through [facility]. Baby Lopez will be added to these programs upon . Deann would like to switch her MA to [employer] and is asking for SW assistance with this. Encouraged Deann to contact [facility] Economic Assistance and ask to speak to a financial worker to see what is needed to make this change. Deann is not currently enrolled in [facility] but is interested in application for these benefits. SW contacted [facility] today and message left for the Supervisor [place] to see if it is possible to enroll Deann and her 4 year-old son in [facility] while Deann is hospitalized. Deann has only limited baby supplies-- some clothing and a swing. SW can provide assistance with a Pack N Play and diapers from [employer]. Deann has history of chemical abuse. She [...] from this experience that having an ongoing director social can be helpful to her and to her children. She has been working with a SW at [facility] (Francisco [phone]) . Deann identifiesthis SW at very supportive. Deann has signed a GIOVANNA to enable me to coordinate services. I contacted Francisco today and message [...] ongoing social work involvement and support. PLAN: JACKIE will continue to follow LIOT Nora Mohamud [...] results from her echo today from the change director. She informed us everything looked normal. She [...] small decels. Overall appropriate for gestational age. [place]: 1 contraction in 1 hour, not felt [...] - Needs follow up with GI or Lead Tinner for treatment options . ? 5. History [...] 6. Hepatitis C - s/p GI at [facility] in 2013, genotype 1a - [...] patient): December 10, 2016 Nora Mohamud MD Sales Consulting Director, [facility] Maternal- Medicine [email or web address] [phone] (Academic office) [phone] (Pager) ?? Tatyana Walsh MD - 12/09/2016 10:46 PM CDT Strip Review FHT: Baseline 150s bpm, moderate variability, present accels, absent decels - appropriate for GA. [place]: 1 contractions/30 mins No intervention needed at this time. Hypothyroidism - TSH returned at normal range - no change to current synthroid needed. Depression - pending psych consult at this time. Continue home effexor. Tatyana Walsh MD MPH [facility], PGY3 Pager: [phone] 12/09/2016 10:46 PM Nora Mohamud MD - [...] 130s, moderate variability, + accels, no decels [place]: quiet, 0 ctx in 10 minutes US (12/08): posterior/left complete previa, transverse, oligohydramnios with MARCELLA 4.3 cm, EFW 943 grams, 37%ile ?? Assessment/Plan: Deann King is a 36 year old @ 27w3d by LMP c/w 6w2d US admitted for HD#3 admitted for PPROM. ?? 1. PPROM: - D#3/ latency antibiotics. - No s/s of labor, [...] and uterine monitoring. - S/p BMZ x2 (). - S/p Indocin for tocolysis through BMZ [...] will follow-up on administration. Marleny Kang MD [facility] PGY-3 Maternal- Medicine Attending Addendum Late entry, [...] 6. Hepatitis C - s/p GI at [facility] in 2013, genotype 1a - [...] patient): December 09, 2016 Nora Mohamud MD Sales Consulting Director, [facility] Maternal- Medicine [email or web address] [phone] (Academic office) [phone] (Pager) Tatyana Walsh MD - 12/08/2016 7:58 PM CDT Strip Review FHT: Baseline 150s bpm, moderate variability, present accels, absent decels - appropriate for GA. [place]: no contractions, uterine irritability Tatyana Walsh MD MPH [facility], PGY3 Pager: [phone] 12/08/2016 8:00 PM Italia Galarza DO - [...] 116/66 103/56 102/55 Pulse: 91 Resp: 18 18 16 16 Temp: 98 ??F (36.7 ??C) 97.9 ??F (36.6 ??C) 98.1 ??F (36.7 ??C) 97.7 ??F (36.5 ??C) TempSrc: Oral Axillary Oral Oral Height: Gen: Resting comfortably in bed, NAD CV: Regular rate Resp: Normal respiratory effort Abd: Gravid, non-tender, non-distended Ext: warm, well-perfused FHT: Baseline 140s, moderate variability, + accels, no decels [place]: 0 ctx in 10 minutes US (12/08): [...] and Tdap ordered today. Marleny Kang MD [facility] PGY-3 Attending Attestation: I agree with the residents note above. I spent 15 minutes total [id number] with this inpatient, and >50% of the [...] toxicity at this time. Rossana Barker MD Block Press Operator, PGY-3 12/08/2016, 2:23 AM documented in this encounter H&P Notes Nora Leyva MD - 12/07/2016 3:06 PM CDT [facility] OB History and Physical Deann King Age: [...] Negative Negative for C. trachomatis rRNA by construction framer mediated amplification. A negative result by construction framer mediated amplification does not preclude the presence of C. trachomatis infection because results are dependent on proper and adequate collection, absence of inhibitors, and sufficient rRNA to be detected. [facility] 08/29/2016 Negative Negative for N. gonorrhoeae rRNA by construction framer mediated amplification. A negative result by construction framer mediated amplification does not preclude the presence [...] Delivery Anes PTL Lv 9 Current 8 07/21/15 19w3d / 01:06 0.325 kg (11.5 oz) [...] BREAST SURGERY ABcess drained ??? SECTION ??? REHAB PHYSICIAN SURGERY ??? ORTHOPEDIC SURGERY ??? THORACIC SURGERY [...] 150, moderate variability, no accelerations, no decelerations [place]: 0 contractions in 10 minutes Assessment Ms. [...] MD OBGYN PGY-3 3:37 PM 12/07/2016 Staff Note I appreciate the note by Dr. [...] Sofía Cao APRN, CNP, 12/20/2016 4:09 PM [facility] Intensive Care Unit So Onofre, PsyD - 12/17/2016 4:53 PM CDTAssociated Order(s): [...] a consultation by Nora Mohamud MD at [facility] Antepartum. Patient is currentlyunemployed. She had been working for her mother's [employer] service, but had to stop due to [...] has not been to a session in awhile. She is open to returning after this [...] through lifestyle changes. She and her attend protestant-based meetings twice a week and no longer [...] has not been to a session in awhile. She is open to returning after this [...] RECOMMENDATIONS 1) Patient was referred to the [facility] resource [place] for assistance with activities while inpatientsuch as [...] provider, she may schedule outpatient follow-up with [facility] (call [phone] and inform online communications specialist that you are or have recently had a baby) or contact insurance company for additional referrals.? Please contact [facility] if patient is in need of supports while on antepartum.?? She currently denies need for ongoing mental health support services. Provider routed the results of this consultation and treatment recommendations to referring provider. Provider reviewed the results of this consultation and treatment recommendations with referring provider via [facility] Referral to another professional/service is not indicated at this time.. So ROWLAND PsyD, LP December 17, 2016 LIOT Gabby Samaniego LP - 12/11/2016 8:18 PM [...] time to herself. She asked if this writer editor could return tomorrow or later this afternoon, but this writer editor told her that she is booked and won't be able to accommodate except for this morning. Fashion Coordinator mentioned at the end that if she [...] time to herself. She asked if this writer editor could return tomorrow or later this afternoon, but this writer editor told her that she is booked and won't be able to accommodate except for this morning. Fashion Coordinator mentioned at the end that if she [...] participate (at this service's next availability). Madonna Carrasquillo APRN DOMESTIC FREIGHT FORWARDER - 12/07/2016 5:00 PM CDTAssociated Order(s): NURSE [...] intraventricular hemorrhage, nutrition, growth and development, and usp outcomes. Please feel free to call with any additional questions or concerns. Madonna Carrasquillo APRN, [facility] 12/07/2016 6:51 PM Nurse Practitioner Service Intensive Care Unit [facility] Floor Time (min): 5 Face to Face [...] leveled and Zeroed, after labs were drawn, [place] was removed with approval of Dr Torres. Site held for 5 minutes and dressing placed to Left wrist, no bleeding or oozing noted at that time. Pt VSS, capnography started, pt's family updated via phone, will report to floor RN. TS INTERN Lisa Rubio RN - 12/25/2016 1:42 AM CST PACU to Inpatient Nursing Handoff Patient Deann King is a 36 year old female who speaks Bangladeshi. Procedure Procedure(s): Section Immediate Hysterectomy, Bilateral Salpingectomy [...] mg (total dose) last given at 0131 SEMICONDUCTOR WAFERS ETCH OPERATOR / epidural Yes. SEMICONDUCTOR WAFERS ETCH OPERATOR - hydromorphone (Dilaudid) Capnography Telemetry ECG Rhythm: [...] numbness;no tingling (12/24/16 0922) Equipment capnography and SEMICONDUCTOR WAFERS ETCH OPERATOR Other LDA IV Access Peripheral IV 12/22/16 Left Upper forearm (Active) Site Assessment WDL except;Leaking 12/25/2016 12:38 AM Line Status Saline locked 12/25/2016 12:38 AM Phlebitis Scale 0-->no symptoms 12/23/2016 8:45 AM Infiltration Scale 0 12/23/2016 8:45 AM Dressing Intervention Other (Comment) 12/23/2016 8:45 AM Number of days:3 Peripheral IV 12/24/16 Right Upper forearm (Active) Site Assessment WDL 12/25/2016 12:38 AM Line Status Saline locked 12/25/2016 12:38 AM Number of days:1 Peripheral IV 12/24/16 Left Lower forearm (Active) Site Assessment [facility] 12/25/2016 12:38 AM Line Status [...] 12/25/2016 12:05 AM Rationale for Continued Use Anesthesia;/GI/REHAB PHYSICIAN Pelvic Procedure 12/25/2016 12:05 AM Urine Output 235 mL 12/25/2016 1:12 AM Number of days:1 Time of void PreOp Void Prior to Procedure: 1835 (12/24/162005) PostOp Voided (mL): 150 mL (12/08/16 0448) Urine Occurrence: 0 (12/20/16 0400) Bladder Scan PO 118 mL (12/08/16 0115) tolerating sips Vitals B/P: 105/59 T: 97.9 ??F (36.6 ??C) Temp src: Oral P: Pulse: 101 (12/19/16 1239) Heart Rate: 91 (12/25/16 0130) R: 23 O2: SpO2: 97 % O2 Device: None (Room air) (12/25/16 0100) Oxygen Delivery: 8 LPM (12/25/16 0005) Family/support present family in lounge Patient belongings Patient Belongings: cell phone/electronics;dental appliance/dentures;earings;glasses Disposition of Belongings: Kept with patient Patient transported on cart and air mat DC meds/scripts (obs/outpt) Not applicable Special needs/considerations None Tasks needing completion None, pt EBL was 5L in OR, all blood products were given in OR. Pt's familywas by the antepartum lounge per the antepartum RN. Lisa Rubio, RN ASCOM [id number] TS INTERN documented in this encounter Miscellaneous Notes Plan of Care - Nakia Figueroa LAPIDARY APPRENTICE - 12/27/2016 3:26 PM CST Problem: PT [...] questions and will d/c from inpatient PT. TS INTERN Associated attestation - Roxy Sr PT - 12/27/2016 6:21 PM EVENTS INTERN Physical Therapy Discharge Summary Reason for therapy discharge: Discharged to home with outpatient therapy. Progress towards therapy goal(s). See goals on Care Plan in [facility] electronic health record for goal details. Goals [...] leaving. F/U in clinic understood by patient. TS INTERN Plan of Care - Erika Villalpando RN - 12/27/2016 7:50 AM CST Referral made to [facility] for early dc. TS INTERN Plan of Care - Lucia Cotton RN [...] out which was taken to the nicu. TS INTERN Plan of Care - Hyacinth Wolf RN [...] more. Will continue with plan of Care. TS INTERN Note - Nikky Smith RNC - 12/26/2016 [...] to provide support. Nikky Smith, GENAROC, IBCLC TS INTERN Plan of Care - uLcia Cotton RN - 12/26/2016 5:46 AM CST Problem: [...] of without calling us to stand by. TS INTERN Plan of Care - Yessenia Julian RN [...] at bedside. Continue with plan of care. TS INTERN Provider Notification - Kristie Merida RN - 12/25/2016 9:01 PM CST Sepsis alert came up for pt. BP 91/63. HR of 115. SpO2 of 98. TS INTERN Plan of Care - Maria Antonia Hidalgo [...] and oral oxycodone given with initial relief. TS INTERN Provider Notification - Kristie Merida RN - 12/25/2016 7:48 PM CST Do you want pt to continue with IV Toradol and Dilaudid? FYI-pt is going outside to smoke. TS INTERN Plan of Care - Maria Antonia Hidalgo [...] Patient medicated during the shift with dilaudid SEMICONDUCTOR WAFERS ETCH OPERATOR for pain, which was discontinued at 13:50. [...] evening. Response: Positive attachment behaviors observed with infant. Support person Rafal presentfor a majority of the day.. Plan: Continue to monitor and treat. Assess for adequate pain relief, and any other needs. Anticipate discharge on Friday. TS INTERN Plan of Care - Maria Antonia Hidalgo [...] one hour. Fixed and working well now TS INTERN Plan of Care - Khloe Elmore RN - 12/25/2016 5:50 AM CST Problem: ( Delivery) (Adult,Obstetrics,Pediatric) Goal: Signs and Symptoms of Listed Potential Problems Will be Absent, Minimized or Managed () Signs and symptoms of listed potential problems will be absent, minimized or managed by discharge/transition of care (reference ( Delivery) (Adult,Obstetrics,Pediatric) CPG). Outcome: No Change Pt's pain intolerable with SEMICONDUCTOR WAFERS ETCH OPERATOR @ 0.2mg dilaudid every 10 minutes, dose increased to 0.3mg every 10 minutes with max dose delivery 1.2mg/hr. Pt's pain remains intolerable, but getting better, she falls asleep between SEMICONDUCTOR WAFERS ETCH OPERATOR doses. TS INTERN Op Note - So Nunez MD - 12/24/2016 11:53 PM CST [facility] Full Operative Progress Note Surgery Date: 12/24/2016 Surgeon: So Nunez MD Assistants: Marilu Lam MD Automotive Technician/Onc staff Petrona Barone MD M staff Donita Barrow MD MFM fellow Margarita Talbert MD Automotive Technician/Onc fellow Marleny Kang MD PGY-3 Tatyana Govea MD PGY-3 Kayla Davidson MD PGY-2 Exceptional Circumstances Require an Senior Network Architect Surgeon -Exceptional medical circumstances in this case required the participation of assistant hvac mechanic surgeons Drs. Barone and Idania in addition [...] due to placenta accreta - Liveborn male Procedure: hysterectomy and bilateral salpingectomy via vertical [...] Scant clear amniotic fluid. 3. Liveborn male in OA presentation delivered through classical uterine [...] clamped and cut im mediately, and the was handed off to the awaiting NICU [...] Monocryl and covered with a sterile dr essalex. All sponge, needle, and instrument counts were correct. Intraabdominal XR was negative for any retained instruments or laparotomy sponges at the end of the case. The patient tolerated the procedure well, and was transferred to recovery in stable condition after extubation in the room. Dr. Nunez was present and scrubbed for the entirety of the procedure. Marleny Kang MD Block Press Operator, PGY-3 12/24/2016, 11:54 PM I was present and scrubbed throughout the procedure, I agree with the note above So Nunez MD TS INTERN Brief Op Note - Marleny Kang MD - 12/24/2016 11:23 PM CST [facility] Hysterectomy Brief Operative Note Surgery Date: 12/24/2016 Surgeon: So Nunez MD; Marilu Lam MD (intraoperative consult) Assistants: Petrona Barone MD MFM staff Donita Barrow MD MFM fellow Margarita Talbert MD Automotive Technician/Onc fellow Marleny Kang MD PGY-3 Tatyana Govea [...] due to placenta accreta - Liveborn male Procedure: hysterectomy, bilateral salpingectomy via vertical skin [...] Disposition: Stable to PACU Marleny Kang MD EDGE BRUSHER PGY-3 TS INTERN Op Note - Marilu Lam MD - 12/24/2016 10:18 PM CST DATE OF SERVICE: 12/07/2016 Remainder of this note will be dictated by Dr. Nunez's service and for my portion is as follows: ATTENDING: Marilu Lam MD SOAKING TANK WORKER: Dr. Talbert, PGY 7 ANESTHESIA: GET COMPLICATIONS: [...] MARILU LAM MD MT: Name: DEANN KING Account: [id number] : 1980 Procedure Date: 12/07/2016 Document: [id number] TS INTERN Plan of Care - Juanis Henson RN - 12/24/2016 8:28 PM CST Problem: [...] Kang and questions answered. SCD's were placed. MDA saw patient prior to transfer to the OR. There was no new bleeding after the spec exam and prior to transfer to cart. While transferto OR patient felt blood coming out and only a small amount was seen on perineum. Dr. Barone was updated on patient status while transfer to OR. TS INTERN Plan of Care - Juanis Henson RN - 12/24/2016 6:04 PM CST Problem: Patient Care Overview Goal: Plan of Care/Patient Progress Review Outcome: No Change Continues to have cramping. Intensity remains the same. Continue to monitor. TS INTERN Plan of Care - Nakia Figueroa PTA - 12/24/2016 4:18 PM CST Problem: PT General Care Plan Goal: PT target date for goal attainment PT: patient displayed improvement with pain and prior to treatment rated neck pain 4/10 and after manual therapy decreased to 0/10. Casing Mixer PT Patient plan for discharge: home Current status: patient independent with all mobilities and HEP Barriers to return to prior living situation: none Recommendations for discharge: home would benefit from OP PT for management of neck and back Rationale for recommendations: decrease back and neck pain and improve posture. Entered by: Nakia Figueroa 12/24/2016 4:17 PM TS INTERN Plan of Care - Petrona Sharif RN [...] 140s, with moderate variability and without decelerations. TS INTERN Plan of Care - Annie Allen RN [...] labor, signs/symptoms of infection, or /maternal compromise. TS INTERN Plan of Care - Annie Allen RN [...] reassured after exam. Continue plan of care. TS INTERN Provider Notification - Annie Allen RN - 12/24/2016 12:02 AM CST 12/24/16 0002 Provider Notification Provider Name/Title Dr. Kang Method of Notification Electronic Page Request Evaluate - Remote Notification Reason Other (Comment) Pt requesting UA/UC for increased urine frequency. Thanks TS INTERN Provider Notification - Juanis Henson RN - 12/23/2016 11:31 PM CST 12/23/16 3249 Provider Notification Provider Name/Title Dr. Kang Method of Notification Electronic Page Request Evaluate - Remote Notification Reason Status Update Patient still cramping. States has had pressure past couple hours. States do I have to cry for the doctors to do anything. RN. Dr. Kang called back and will see patient when she returns to floor. TS INTERN Plan of Care - Juanis Henson RN [...] symptoms. RN will talk with Dr. Kang. TS INTERN Plan of Care - Juanis Henson RN [...] ate, in case she progresses into labor. TS INTERN Provider Notification - Leslie Mendoza RN - 12/23/2016 3:35 PM CST 12/23/16 1730 Provider Notification Provider Name/Title Dr. Walsh, Dr. Barone, Med student Method of Notification At Bedside Request Evaluate in Person Notification Reason Status Update TS INTERN Plan of Care - Leslie Mendoza RN [...] labor, signs/symptoms of infection, or /maternal compromise. TS INTERN Provider Notification - Leslie Mendoza RN - 12/23/2016 12:31 PM CST 12/23/16 0945 OB Patient Position Activity/Level of Assist Ambulating Patient went outside TS INTERN Provider Notification - Leslie Mendoza RN - 12/23/2016 12:31 PM CST 12/23/16 0720 OB Patient Position Maternal Position Standing Activity/Level of Assist Ambulating Patient went outside (to smoke) TS INTERN Provider Notification - Leslie Mendoza RN - 12/23/2016 7:58 AM CST Providers here for morning rounds and EFM strip review. Patient concerned about her oral pain on hertongue. There is a sore/ulceration there. Providers reminding patient to NOT self examine digitally her cervix. TS INTERN Plan of Care - Bonita Love RN [...] Will continue with current plan of care. TS INTERN Provider Notification - Bonita Love RN - 12/22/2016 8:02 PM EVENTS INTERN 12/22/162000 Provider Notification Provider Name/Title Dr. Kang Method of Notification In Department Notification Reason Other (Comment) Patient reporting increased leaking of fluid today. Yellow colored on pads, no odor. Patient is not having any abdominal tenderness. Afebrile. Pt declines monitoring at this time. Dr. Kang updated. TS INTERN Plan of Care - Yareli Marsh RN [...] today. Will continue with plan of care. TS INTERN Plan of Care - Wendy Richter RN [...] VSS; EFM as charted. Continue expectant management. TS INTERN Plan of Care - Wendy Richter RN - 12/22/2016 3:13 AM CST Due to daylight savings time, labor calculations, ruptured membrane calculations and/or cervical exams times may be off by up to one hour from the actual time. A summary of the times/calcuations follows: None for this patient. TS INTERN Plan of Care - So Cheng RN [...] son. They have been working on some [employer] watching movies. Pt continues to go outside [...] the bathroom for longer period of time. Casing Mixer PT Patient plan for discharge: home Current [...] to monitor and update providerwith any changes. [place] quiet and EFM mod variability, occasional accels, [...] No visitors last diana but worked on [employer] and did other crafts/games. No complaints today. [...] each time. Plan of Care - Roxy Sr PT - 12/18/2016 11:13 AM CDT Problem: [...] axillary as well as left upper abd. [place], raised areas, itches but also dal[place] per [...] postural exercises and relief with suboccipital release. Casing Mixer PT Patient plan for discharge: home Current [...] will return next Friday which had Ludmila gordon down. States no bleeding, no contractions noted. [...] functional goals as expected D: Patient called writer editor into room at 1230 stating pain in her side after laughing at the [employer] tv. Placed on EFM, no contractions noted accelerations and baby appropriate for gestational age.Patient called writer editor back into room at 1305 stating that [...] of Care/Patient Progress Review Outcome: No Change Fashion Coordinator went to assess vital signs. Pt. Stated that she had some reddish pink mucus in the toilet andsome pink fluid on the toilet tissue. Small quarter sized reddish pink mucus noted in the bottom of the toilet. Urine was yellow colored, no blood noted. Fashion Coordinator placed and uterine monitors on thepatient. Patient [...] scant bloody mucus in toilet when voided. Valdez on toilet tissue. Dr. Cyr notified of [...] parents for potential early delivery of compromised infant(s). Plan of Care - Ping Barker RN [...] gum. Pt declines at this time. With director social at this time. Pt declines a nicotine [...] within reach. Pt states understanding to put radiology receptionist light if any change in condition. Plan [...] Overview Goal: Plan of Care/Patient Progress Review Casing Mixer PT Patient plan for discharge: Home Current [...] to her s/o. [facility]. Pt is comfortable. She [...] 1300, 1700 & 2200. Per Dr. Mohamud, okay to reschedule emar times to match. Pt [...] as needed perDr. Mohamud. Seen by Dr. Mohamud. Call light is within reach. Pt states understanding to put radiology receptionist light if any changes in condition. Plan [...] RN - 12/10/2016 5:32 PM CDT 12/10/16 1717 Provider Notification Provider Name/Title Dr. Kang Method [...] orintensity. Abdomen palpates soft, and toco didn't strip picker any contractions. FHT: mod variability with accels, [...] Visit Wound Care [facility], [address] [place] [address] (Wo rk) Pending Results Name Type Priority Associated Date/Time Diagnoses Transfuse red blood Nursing Transfusion STAT 1 02/24/2016 8:10 cell unit PM EVENTS INTERN Transfuse red blood Nursing Transfusion STAT 1 02/24/2016 8:15 cell unit PM EVENTS INTERN Transfuse plasma unit Nursing Transfusion Routine 12/24/2016 8:48 PM EVENTS INTERN Transfuse red blood Nursing Transfusion STAT 1 02/24/2016 8:42 cell unit PM EVENTS INTERN Transfuse red blood Nursing Transfusion STAT 1 02/24/2016 9:30 cell unit PM EVENTS INTERN Transfuse red blood Nursing Transfusion STAT 1 02/24/2016 8:59 cell unit PM EVENTS INTERN Transfuse red blood Nursing Transfusion STAT 1 02/24/2016 8:58 cell unit PM EVENTS INTERN Transfuse red blood Nursing Transfusion STAT 1 02/24/2016 8:47 cell unit PM EVENTS INTERN Placenta path order and Lab Routine 08/2016 8:05 indications PM EVENTS INTERN Transfuse platelets Nursing Transfusion Routine 1 02/24/2016 9:19 unit PM EVENTS INTERN Transfuse red blood Nursing Transfusion STAT 1 02/24/2016 10:15 cell unit PM EVENTS INTERN Transfuse red blood Nursing Transfusion STAT 1 02/24/2016 10:50 cell unit PM EVENTS INTERN Transfuse red blood Nursing Transfusion STAT 1 02/24/2016 9:56 cell unit PM EVENTS INTERN Cryoprecipitate prepare Blood Bank Routine Chronic hepatitis 12/24/2016 10:59 order unit C without hepatic PM EVENTS INTERN coma (H) Transfuse Nursing Transfusion Routine 12/25/19 17 11:10 cryoprecipitate unit PM EVENTS INTERN Scheduled Referrals Name Type Priority Associated Diagnoses Order S chedule GASTROENTEROLOGY ADULT REF Referral Routine Chronic hepati tis C Ordered: 12/26/2016 CONSULT ONLY without hepatic coma (H) DENTAL REFERRAL Referral Routine Dental caries Ordered: documented as of this encounter Procedures Procedure Name Priority Date/Time Associated Comments Diagnosis CBC WITH PLATELETS Routine 12/26/2016 8:10 Chronic hepatitis R esults for this AM EVENTS INTERN C without hepatic procedure are in coma (H) the results section. CBC WITH PLATELETS Timed 12/25/2016 2:04 Chronic hepatitis R esults for this PM EVENTS INTERN C without hepatic procedure are in coma (H) the results section. INR Timed 12/25/2016 7:00 Chronic hepatitis Results for this AM EVENTS INTERN C without hepatic procedure are in coma (H) the results section. PARTIAL THROMBOPLASTIN Timed 12/25/2016 7:00 Chronic hepatit is Results for this TIME AM EVENTS INTERN C without hepatic procedure are in coma (H) the results section. MAGNESIUM Timed 12/25/2016 7:00 Chronic hepatitis Results for this AM EVENTS INTERN C without hepatic procedure are in coma (H) the results section. FIBRINOGEN ACTIVITY Timed 12/25/2016 7:00 Chronic hepatitis Results for this AM EVENTS INTERN C without hepatic procedure are in coma (H) the results section. BASIC METABOLIC PANEL Timed 12/25/2016 7:00 Chronic hepatiti s Results for this AM EVENTS INTERN C without hepatic procedure are in coma (H) the results section. CBC WITH PLATELETS Timed 12/25/2016 7:00 Chronic hepatitis R esults for this AM EVENTS INTERN C without hepatic procedure are in coma (H) the results section. INR Routine 12/25/2016 12:54 Chronic hepatitis Result s for this AM EVENTS INTERN C without hepatic procedure are in coma (H) the results section. PARTIAL THROMBOPLASTIN Routine 12/25/2016 12:54 Chronic hepati tis Results for this TIME AM EVENTS INTERN C without hepatic procedure are in coma (H) the results section. FIBRINOGEN ACTIVITY Routine 12/25/2016 12:54 Chronic hepatitis Results for this AM EVENTS INTERN C without hepatic procedure are in coma (H) the results section. BASIC METABOLIC PANEL Routine 12/25/2016 12:54 Chronic hepatit is Results for this AM EVENTS INTERN C without hepatic procedure are in coma (H) the results section. CBC WITH PLATELETS Routine 12/25/2016 12:54 Chronic hepatitis Results for this AM EVENTS INTERN C without hepatic procedure are in coma (H) the results section. XR ABDOMEN PORT 1 VIEW STAT 12/24/2016 11:10 R esults for this PM EVENTS INTERN procedure are i n the results section. TRANSFUSE Routine 12/24/2016 11:10 CRYOPRECIPITATE UNIT PM EVENTS INTERN BLOOD COMPONENT Routine 12/24/2016 10:59 Chronic hepatitis Res ults for this PM EVENTS INTERN C without hepatic procedure are in coma (H) the results section. PREPARE CRYOPRECIPITATE Routine 12/24/2016 10:59 Chronic hepat itis (SINGLE UNIT) PM EVENTS INTERN C without hepatic coma (H) TRANSFUSE RED BLOOD CELL STAT 12/24/2016 10:50 UNIT PM EVENTS INTERN ARTERIAL PANEL Routine 12/24/2016 10:45 Chronic hepatitis Resu lts for this PM EVENTS INTERN C without hepatic procedure are in coma (H) the results section. TRANSFUSE RED BLOOD CELL STAT 12/24/2016 10:15 UNIT PM EVENTS INTERN SURGICAL PATHOLOGY EXAM Routine 12/24/2016 10:13 Results for this PM EVENTS INTERN procedure are i n the results section. TRANSFUSE RED BLOOD CELL STAT 12/24/2016 9:56 UNIT PM EVENTS INTERN ARTERIAL PANEL Routine 12/24/2016 9:50 Chronic hepatitis Resul ts for this PM EVENTS INTERN C without hepatic procedure are in coma (H) the results section. INR Routine 12/24/2016 9:50 Chronic hepatitis Results for this PM EVENTS INTERN C without hepatic procedure are in coma (H) the results section. PARTIAL THROMBOPLASTIN Routine 12/24/2016 9:50 Chronic hepatit is Results for this TIME PM EVENTS INTERN C without hepatic procedure are in coma (H) the results section. FIBRINOGEN ACTIVITY Routine 12/24/2016 9:50 Chronic hepatitis Results for this PM EVENTS INTERN C without hepatic procedure are in coma (H) the results section. CBC WITH PLATELETS Routine 12/24/2016 9:50 Chronic hepatitis R esults for this PM EVENTS INTERN C without hepatic procedure are in coma (H) the results section. TRANSFUSE RED BLOOD CELL STAT 12/24/2016 9:30 UNIT PM EVENTS INTERN ARTERIAL PANEL Routine 12/24/2016 9:20 Chronic hepatitis Resul ts for this PM EVENTS INTERN C without hepatic procedure are in coma (H) the results section. TRANSFUSE PLATELETS UNIT Routine 12/24/2016 9:19 PM EVENTS INTERN TRANSFUSE RED BLOOD CELL STAT 12/24/2016 8:59 UNIT PM EVENTS INTERN TRANSFUSE RED BLOOD CELL STAT 12/24/2016 8:58 UNIT PM EVENTS INTERN TRANSFUSE PLASMA UNIT Routine 12/24/2016 8:48 PM EVENTS INTERN TRANSFUSE RED BLOOD CELL STAT 12/24/2016 8:47 UNIT PM EVENTS INTERN BLOOD COMPONENT Routine 12/24/2016 8:45 Chronic hepatitis Resu lts for this PM EVENTS INTERN C without hepatic procedure are in coma (H) the results section. BLOOD COMPONENT Routine 12/24/2016 8:45 Chronic hepatitis Resu lts for this PM EVENTS INTERN C without hepatic procedure are in coma (H) the results section. PREPARE PLATELETS ORDER Routine 12/24/2016 8:45 Chronic hepati tis Results for this UNIT PM EVENTS INTERN C without hepatic procedure are in coma (H) the results section. ARTERIAL PANEL Routine 12/24/2016 8:44 Chronic hepatitis Resul ts for this PM EVENTS INTERN C without hepatic procedure are in coma (H) the results section. INR Routine 12/24/2016 8:44 Chronic hepatitis Results for this PM EVENTS INTERN C without hepatic procedure are in coma (H) the results section. PARTIAL THROMBOPLASTIN Routine 12/24/2016 8:44 Chronic hepatit is Results for this TIME PM EVENTS INTERN C without hepatic procedure are in coma (H) the results section. FIBRINOGEN ACTIVITY Routine 12/24/2016 8:44 Chronic hepatitis Results for this PM EVENTS INTERN C without hepatic procedure are in coma (H) the results section. CBC WITH PLATELETS Routine 12/24/2016 8:44 Chronic hepatitis R esults for this PM EVENTS INTERN C without hepatic procedure are in coma (H) the results section. TRANSFUSE RED BLOOD CELL STAT 12/24/2016 8:42 UNIT PM EVENTS INTERN ARTERIAL PANEL Routine 12/24/2016 8:25 Chronic hepatitis Resul ts for this PM EVENTS INTERN C without hepatic procedure are in coma (H) the results section. PLACENTA PATH ORDER AND Routine 12/24/2016 8:05 INDICATIONS PM EVENTS INTERN BLOOD COMPONENT Routine 12/24/2016 7:25 Chronic hepatitis Resu lts for this PM EVENTS INTERN C without hepatic procedure are in coma (H) the results section. BLOOD COMPONENT Routine 12/24/2016 7:25 Chronic hepatitis Resu lts for this PM EVENTS INTERN C without hepatic procedure are in coma (H) the results section. BLOOD COMPONENT Routine 12/24/2016 7:25 Chronic hepatitis Resu lts for this PM EVENTS INTERN C without hepatic procedure are in coma (H) the results section. BLOOD COMPONENT Routine 12/24/2016 7:25 Chronic hepatitis Resu lts for this PM EVENTS INTERN C without hepatic procedure are in coma (H) the results section. BLOOD COMPONENT Routine 12/24/2016 7:25 Chronic hepatitis Resu lts for this PM EVENTS INTERN C without hepatic procedure are in coma (H) the results section. BLOOD COMPONENT Routine 12/24/2016 7:25 Chronic hepatitis Resu lts for this PM EVENTS INTERN C without hepatic procedure are in coma (H) the results section. BLOOD COMPONENT Routine 12/24/2016 7:25 Chronic hepatitis Resu lts for this PM EVENTS INTERN C without hepatic procedure are in coma (H) the results section. BLOOD COMPONENT Routine 12/24/2016 7:25 Chronic hepatitis Resu lts for this PM EVENTS INTERN C without hepatic procedure are in coma (H) the results section. PREPARE PLASMA (UNIT) Routine 12/24/2016 7:25 Chronic hepatiti s Results for this PM EVENTS INTERN C without hepatic procedure are in coma (H) the results section. HYSTERECTOMY, FOLLOWING 12/24/2016 7:24 SECTION PM EVENTS INTERN CBC WITH PLATELETS & STAT 12/24/2016 7:06 Chronic hepatitis Results for this DIFFERENTIAL PM EVENTS INTERN C without hepatic procedure are in coma (H) the results section. ROUTINE UA WITH Routine 12/24/2016 7:50 Chronic hepatitis Resu lts for this MICROSCOPIC REFLEX TO AM EVENTS INTERN C without hepatic p rocedure are in CULTURE coma (H) the results section. URINE CULTURE Routine 12/24/2016 7:50 Chronic hepatitis Result s for this AM EVENTS INTERN C without hepatic procedure are in coma (H) the results section. WET PREPARATION Routine 12/23/2016 11:53 Chronic hepatitis Res ults for this PM EVENTS INTERN C without hepatic procedure are in coma (H) the results section. MFM BPP SINGLE Routine 12/23/2016 8:37 Results fo r this AM EVENTS INTERN procedure are i n the results section. BLOOD COMPONENT Routine 12/23/2016 6:54 Chronic hepatitis Resu lts for this AM EVENTS INTERN C without hepatic procedure are in coma (H) the results section. BLOOD COMPONENT Routine 12/23/2016 6:54 Chronic hepatitis Resu lts for this AM EVENTS INTERN C without hepatic procedure are in coma (H) the results section. BLOOD COMPONENT Routine 12/23/2016 6:54 Chronic hepatitis Resu lts for this AM EVENTS INTERN C without hepatic procedure are in coma (H) the results section. BLOOD COMPONENT Routine 12/23/2016 6:54 Chronic hepatitis Resu lts for this AM EVENTS INTERN C without hepatic procedure are in coma (H) the results section. BLOOD COMPONENT Routine 12/23/2016 6:54 Chronic hepatitis Resu lts for this AM EVENTS INTERN C without hepatic procedure are in coma (H) the results section. BLOOD COMPONENT Routine 12/23/2016 6:54 Chronic hepatitis Resu lts for this AM EVENTS INTERN C without hepatic procedure are in coma (H) the results section. BLOOD COMPONENT Routine 12/23/2016 6:54 Chronic hepatitis Resu lts for this AM EVENTS INTERN C without hepatic procedure are in coma (H) the results section. BLOOD COMPONENT Routine 12/23/2016 6:54 Chronic hepatitis Resu lts for this AM EVENTS INTERN C without hepatic procedure are in coma (H) the results section. BLOOD COMPONENT Routine 12/23/2016 6:54 Chronic hepatitis Resu lts for this AM EVENTS INTERN C without hepatic procedure are in coma (H) the results section. BLOOD COMPONENT Routine 12/23/2016 6:54 Chronic hepatitis Resu lts for this AM EVENTS INTERN C without hepatic procedure are in coma (H) the results section. BLOOD COMPONENT Routine 12/23/2016 6:54 Chronic hepatitis Resu lts for this AM EVENTS INTERN C without hepatic procedure are in coma (H) the results section. BLOOD COMPONENT Routine 12/23/2016 6:54 Chronic hepatitis Resu lts for this AM EVENTS INTERN C without hepatic procedure are in coma (H) the results section. ABO/RH TYPE AND SCREEN Routine 12/23/2016 6:54 Chronic hepatit is Results for this AM EVENTS INTERN C without hepatic procedure are in coma (H) the results section. ABO/RH TYPE AND SCREEN Timed 12/20/2016 10:48 Chronic hepati tis Results for this AM CDT C without hepatic procedure are in coma (H) the results section. [facility] BPP SINGLE Routine 12/19/2016 8:46 Results fo r this AM CDT procedure are i n the results section. ABO/RH TYPE AND SCREEN Timed 12/17/2016 6:54 Chronic hepatit is Results for this AM CDT C without hepatic procedure are in coma (H) the results section. [facility] US OB LIMITED Routine 12/16/2016 9:24 Results [...] procedure are i n the results section. [facility] OB LIMITED Routine 12/12/2016 8:36 Results for this SINGLE/MULTIPLE AM CDT procedure ar e in the results section. ABO/RH TYPE AND SCREEN Timed 12/11/2016 9:05 Re sults for this AM CDT procedure are i n the results section. ECHO COMPLETE* Routine 12/10/2016 9:05 Resu lts for this AM CDT procedure are i n the results section. [facility] US COMPREHENSIVE Routine 12/08/2016 9:52 Resu lts [...] (ABNORMAL) CBC with platelets (12/26/2016 8:10 AM EVENTS INTERN) [facility] gist Method Time Signature WBC 8.5 4.0 - 11.0 12/26/2016 [facility] 10e9/L 8:20 AM EVENTS INTERN [facility] RBC Count 3.19 (L) 3.8 - 5.2 12/26/2016 [facility] 10e12/L 8:20 AM EVENTS INTERN [facility] Hemoglobin 9.2 (L) 11.7 - 12/26/2016 [facility] 15.7 g/dL 8:20 AM [facility] Hematocrit 27.2 (L) 35.0 - 12/26/2016 [facility] 47.0 % 8:20 AM [facility] MCV 85 78 - 100 12/26/2016 [facility] 8:20 AM [facility] MCH 28.8 26.5 - 12/26/2016 [facility] 33.0 pg 8:20 AM [facility] MCHC 33.8 31.5 - 12/26/2016 [facility] 36.5 g/dL 8:20 AM [facility] RDW 14.7 10.0 - 12/26/2016 [facility] 15.0 % 8:20 AM [facility] Platelet Count 144 (L) 150 - 450 12/26/2016 [facility] 10e9/L 8:20 AM [facility] Specimen Anatomical Collection Method Collection Time Receive d Time (Source) Location / / Volume Laterality Blood specimen 12/26/2016 8:10 AM 017 8:12 (specimen) EVENTS INTERN AM EVENTS INTERN Kayla Davidson MD LAB - BLOOD ORDERABLES Performing Organization Address City/State/ZIP Code Phon e Number [facility] [address] [place] [address] [facility] (ABNORMAL) CBC with platelets (12/25/2016 2:04 PM EVENTS INTERN) [facility] gist Method Time Signature WBC 9.7 4.0 - 11.0 12/25/2016 [facility] 10e9/L 2:10 PM [facility] RBC Count 3.45 (L) 3.8 - 5.2 12/25/2016 [facility] 10e12/L 2:10 PM [facility] Hemoglobin 10.1 (L) 11.7 - 12/25/2016 [facility] 15.7 g/dL 2:10 PM [facility] Hematocrit 28.8 (L) 35.0 - 12/25/2016 [facility] 47.0 % 2:10 PM [facility] MCV 84 78 - 100 12/25/2016 [facility] 2:10 PM [facility] MCH 29.3 26.5 - 12/25/2016 [facility] 33.0 pg 2:10 PM [facility] MCHC 35.1 31.5 - 12/25/2016 [facility] 36.5 g/dL 2:10 PM [facility] RDW 14.4 10.0 - 12/25/2016 [facility] 15.0 % 2:10 PM [facility] Platelet Count 142 (L) 150 - 450 12/25/2016 [facility] 10e9/L 2:10 PM [facility] Specimen Anatomical Collection Method Collection Time Receive d Time (Source) Location / / Volume Laterality Blood specimen 12/25/2016 2:04 PM 017 2:08 (specimen) EVENTS INTERN PM EVENTS INTERN So Nunez MD LAB - BLOOD ORDERABLES Performing Organization Address City/[facility] Phon e Number [address] [address] [facility] (ABNORMAL) Magnesium (12/25/2016 7:00 AM EVENTS INTERN) P athologist Signature Magnesium 1.5 (L) 1.6 - 2.3 12/25/2016 [facility] mg/dL 8:07 AM [facility] Specimen Anatomical Collection Method Collection Time Receive d Time (Source) Location / / Volume Laterality Blood specimen 12/25/2016 7:00 AM 017 7:06 (specimen) EVENTS INTERN AM EVENTS INTERN So Nunez MD LAB - BLOOD ORDERABLES Performing Organization Address City/State/ZIP Code Phon e Number [address] (ABNORMAL) Basic metabolic panel (12/25/2016 7:00 AM EVENTS INTERN) Patholo gist Method Time Signature Sodium 139 133 - 144 12/25/2016 [facility] mmol/L 8:13 AM [facility] Potassium 3.8 3.4 - 5.3 12/25/2016 [facility] mmol/L 8:13 AM [facility] Chloride 108 94 - 109 12/25/2016 [facility] mmol/L 8:13 AM [facility] Carbon Dioxide 21 20 - 32 12/25/2016 [facility] mmol/L 8:13 AM [facility] Anion Gap 10 3 - 14 12/25/2016 [facility] mmol/L 8:13 AM [facility] Glucose 133 (H) 70 - 99 12/25/2016 [facility] mg/dL 8:13 AM [facility] Urea Nitrogen 5 (L) 7 - 30 12/25/2016 [facility] mg/dL 8:13 AM [facility] Creatinine 0.51 (L) 0.52 - 12/25/2016 [facility] 1.04 mg/dL 8:13 AM [facility] GFR Estimate >90 >60 12/25/2016 [facility] mL/min/1.7 8:[address] Comment: Non GFR Calc GFR Estimate If >90 >60 mL/min/1.7m2 12/25/2016 8:13 A M [facility] Black [facility] Comment: GFR Calc Calcium 7.6 (L) 8.5 - 10.1 mg/dL 12/25/2016 8:13 AM [facility] Specimen Anatomical Collection Method Collection Time Receive d Time (Source) Location / / Volume Laterality Blood specimen 12/25/2016 7:00 AM 017 7:07 (specimen) EVENTS INTERN AM EVENTS INTERN Petrona Barone DO LAB - BLOOD ORDERABLES Performing Organization Address City/[facility]/ZIP Code Phon e Number [address] Fibrinogen activity (12/25/2016 7:00 AM EVENTS INTERN) P athologist Signature Fibrinogen 398 200 - 420 12/25/2016 [facility] mg/dL 7:58 AM [facility] Specimen Anatomical Collection Method Collection Time Receive d Time (Source) Location / / Volume Laterality Blood specimen 12/25/2016 7:00 AM 017 7:07 (specimen) EVENTS INTERN AM EVENTS INTERN Petrona Barone DO LAB - BLOOD ORDERABLES Performing Organization Address City/[facility]/ZIP Code Phon e Number [address] Partial thromboplastin time (12/25/2016 7:00 AM EVENTS INTERN) P athologist Signature PTT 28 22 - 37 sec 12/25/2016 [facility] 7:58 AM [facility] Specimen Anatomical Collection Method Collection Time Receive d Time (Source) Location / / Volume Laterality Blood specimen 12/25/2016 7:00 AM 017 7:07 (specimen) EVENTS INTERN AM EVENTS INTERN Petrona Barone DO LAB - BLOOD ORDERABLES Performing Organization Address City/State/ZIP Code Phon e Number [address] [address] [facility] INR (12/25/2016 7:00 AM EVENTS INTERN) P athologist Signature INR 1.06 0.86 - 1.14 12/25/2016 [facility] 7:58 AM [facility] Specimen Anatomical Collection Method Collection Time Receive d Time (Source) Location / / Volume Laterality Blood specimen 12/25/2016 7:00 AM 017 7:07 (specimen) EVENTS INTERN AM EVENTS INTERN Petrona Barone DO LAB - BLOOD ORDERABLES Performing Organization Address City/[facility]/ZIP Code Phon e Number [address] [address] [facility] (ABNORMAL) CBC with platelets (12/25/2016 7:00 AM EVENTS INTERN) Patholo gist Method Time Signature WBC 12.7 (H) 4.0 - 11.0 12/25/2016 [facility] 10e9/L 7:51 AM [facility] RBC Count 4.05 3.8 - 5.2 12/25/2016 [facility] 10e12/L 7:51 AM [facility] Hemoglobin 11.5 (L) 11.7 - 12/25/2016 [facility] 15.7 g/dL 7:51 AM [facility] Hematocrit 33.8 (L) 35.0 - 12/25/2016 [facility] 47.0 % 7:51 AM [facility] MCV 84 78 - 100 12/25/2016 [facility] fl 7:51 AM [facility] MCH 28.4 26.5 - 12/25/2016 [facility] 33.0 pg 7:51 AM [facility] MCHC 34.0 31.5 - 12/25/2016 [facility] 36.5 g/dL 7:51 AM [facility] RDW 14.0 10.0 - 12/25/2016 [facility] 15.0 % 7:51 AM [facility] Platelet Count 160 150 - 450 12/25/2016 [facility] 10e9/L 7:51 AM [facility] Specimen Anatomical Collection Method Collection Time Receive d Time (Source) Location / / Volume Laterality Blood specimen 12/25/2016 7:00 AM 017 7:07 (specimen) EVENTS INTERN AM EVENTS INTERN Petrona Barone DO LAB - BLOOD ORDERABLES Performing Organization Address City/State/ZIP Code Phon e Number [address] [address] [facility] Partial thromboplastin time (12/25/2016 12:54 AM EVENTS INTERN) P athologist Signature PTT 28 22 - 37 sec 12/25/2016 [facility] 1:52 AM [facility] Specimen Anatomical Collection Method Collection Time Receive d Time (Source) Location / / Volume Laterality Blood specimen 12/25/2016 12:54 7 1:10 (specimen) AM EVENTS INTERN AM EVENTS INTERN Nora Torres MD LAB - BLOOD ORDERABLES Performing Organization Address City/State/ZIP Code Phon e Number [address] [address] [facility] INR (12/25/2016 12:54 AM EVENTS INTERN) P athologist Signature INR 1.11 0.86 - 1.14 12/25/2016 [facility] 1:52 AM [facility] Specimen Anatomical Collection Method Collection Time Receive d Time (Source) Location / / Volume Laterality Blood specimen 12/25/2016 12:54 7 1:10 (specimen) AM EVENTS INTERN AM EVENTS INTERN Nora Torres MD LAB - BLOOD ORDERABLES Performing Organization Address City/State/ZIP Code Phon e Number [address] [address] [facility] Fibrinogen activity (12/25/2016 12:54 AM EVENTS INTERN) P athologist Signature Fibrinogen 338 200 - 420 12/25/2016 [facility] mg/dL 1:52 AM [facility] Specimen Anatomical Collection Method Collection Time Receive d Time (Source) Location / / Volume Laterality Blood specimen 12/25/2016 12:54 7 1:10 (specimen) AM EVENTS INTERN AM EVENTS INTERN Nora Torres MD LAB - BLOOD ORDERABLES Performing Organization Address City/[facility]/ZIP Code Phon e Number [address] [address] [facility] (ABNORMAL) CBC with platelets (12/25/2016 12:54 AM EVENTS INTERN) Analysis Performed At Patho logis Time Signature WBC 11.0 4.0 - 11.0 12/25/2016 [facility] 10e9/L 1:42 AM EVENTS INTERN [facility] RBC Count 4.22 3.8 - 5.2 12/25/2016 [facility] 10e12/L 1:42 AM [facility] Hemoglobin 12.2 11.7 - 12/25/2016 [facility] 15.7 g/dL 1:42 AM [facility] Hematocrit 35.9 35.0 - 12/25/2016 [facility] 47.0 % 1:42 AM [facility] MCV 85 78 - 100 12/25/2016 [facility] fl 1:42 AM [facility] MCH 28.9 26.5 - 12/25/2016 [facility] 33.0 pg 1:42 AM [facility] MCHC 34.0 31.5 - 12/25/2016 [facility] 36.5 g/dL 1:42 AM [facility] RDW 13.6 10.0 - 12/25/2016 [facility] 15.0 % 1:42 AM [facility] Platelet Count 149 (L) 150 - 450 12/25/2016 [facility] 10e9/L 1:42 AM [facility] Specimen Anatomical Collection Method Collection Time Receive d Time (Source) Location / / Volume Laterality Blood specimen 12/25/2016 12:54 7 1:10 (specimen) AM EVENTS INTERN AM EVENTS INTERN Nora Torres MD LAB - BLOOD ORDERABLES Performing Organization Address City/[facility]/ZIP Code Phon e Number [address] [address] [facility] (ABNORMAL) Basic metabolic panel (12/25/2016 12:54 AM EVENTS INTERN) Analysis Performed At Patho logist Time Signature Sodium 142 133 - 144 12/25/2016 [facility] mmol/L 1:49 AM [facility] Potassium 4.0 3.4 - 5.3 12/25/2016 [facility] mmol/L 1:49 AM [facility] Chloride 113 (H) 94 - 109 12/25/2016 [facility] mmol/L 1:49 AM [facility] Carbon Dioxide 22 20 - 32 12/25/2016 [facility] mmol/L 1:49 AM [facility] Anion Gap 7 3 - 14 12/25/2016 [facility] mmol/L 1:49 AM [facility] Glucose 147 (H) 70 - 99 12/25/2016 [facility] mg/dL 1:49 AM [facility] Urea Nitrogen 6 (L) 7 - 30 12/25/2016 [facility] mg/dL 1:49 AM [facility] Creatinine 0.54 0.52 - 12/25/2016 [facility] 1.04 mg/dL 1:49 AM [facility] GFR Estimate >90 >60 12/25/2016 [facility] mL/min/1.7 1:[address] Comment: Non GFR Calc GFR Estimate If >90 >60 mL/min/1.7m2 12/25/2016 1:49 A [facility] Black [facility] Comment: GFR Calc Calcium 8.0 (L) 8.5 - 10.1 mg/dL 12/25/2016 1:49 AM [facility] Specimen Anatomical Collection Method Collection Time Receive d Time (Source) Location / / Volume Laterality Blood specimen 12/25/2016 12:54 7 1:10 (specimen) AM EVENTS INTERN AM EVENTS INTERN Nora Torres MD LAB - BLOOD ORDERABLES Performing Organization Address City/State/ZIP Code Phon e Number [facility] [address] [place] [address] [facility] XR Abdomen Port 1 View (12/24/2016 11:10 PM EVENTS INTERN) Anatomical Region Laterality Modality Abdomen/Pelvis Computed Radiography Specimen (Source) Anatomical Location Collection Method / Collectio n Time Received Time / Laterality Volume Impressions 12/24/2016 11:52 PM EVENTS INTERN IMPRESSION: No radiopaque foreign objects are present in the visualized portion of the abdomen and pe lvis. CHEIKH COURTNEY MD Narrative 12/24/2016 11:52 PM EVENTS INTERN ABDOMEN SINGLE VIEW ??12/24/2016 11:10 PM HISTORY: [...] ORDER JEFFERY Blood component (12/24/2016 10:59 PM EVENTS INTERN) Component Value Ref Test Analysis Performed At [facility] Range Method Time Signature Unit Number [id number] 12/24/2016 [facility] 11:06 PM [facility] Blood 5 cryoprecipitate 12/24/2016 [facility] Component units pooled 11:06 PM [place] [facility] Division 00 12/24/2016 [facility] Number 11:06 PM [facility] Status of Released to care 12/24/2016 [facility] F Unit unit 11:58 PM [facility] Blood [id number] 12/24/2016 [facility] Product Code 11:06 PM [facility] Unit Status [facility] Specimen Anatomical Collection Method Collection Time Receive d Time (Source) Location / / Volume Laterality 12/24/2016 10:59 12/24/2016 PM EVENTS INTERN 11:04 PM EVENTS INTERN Nora Leyva MD LABORATORY Performing Organization Address City/State/ZIP Code Phon e Number [facility] [address] [place] [address] [facility] [address] [place] [address] [facility] (ABNORMAL) Arterial Panel (12/24/2016 10:45 PM EVENTS INTERN) [facility] Method Time Signature pH Arterial 7.35 7.35 - 12/24/2016 [facility] 7.45 pH 10:57 PM EVENTS INTERN [facility] pCO2 Arterial 36 35 - 45 mm 12/24/2016 [facility] Hg 10:57 PM [facility] pO2 Arterial 207 (H) 80 - 105 12/24/2016 [facility] mm Hg 10:57 PM [facility] Bicarbonate 20 (L) 21 - 28 12/24/2016 [facility] Arterial mmol/L 10:57 PM [facility] Base Deficit Art 4.9 mmol/L 12/24/2016 [facility] F 10:57 PM [facility] Comment: Reference range: -9.0 to 1.8 FIO2 50 12/24/2016 10:50 PM [facility] Sodium 135 133 - 144 12/24/2016 10:57 PM [facility] mmol/L [facility] Potassium 4.0 3.4 - 5.3 12/24/2016 10:57 PM [facility] mmol/L [facility] Hemoglobin 10.1 (L) 11.7 - 15.7 12/24/2016 10:57 PM [facility] [facility] [place] g/dL [facility] Glucose 161 (H) 70 - 99 mg/dL 12/24/2016 10:57 PM [facility] Calcium Ionized 5.1 4.4 - 5.2 12/24/2016 10:57 PM [facility] [place] Whole Blood mg/dL [facility] Specimen Anatomical Collection Method Collection Time Receive d Time (Source) Location / / Volume Laterality 12/24/2016 10:45 12/24/2016 PM EVENTS INTERN 10:49 PM EVENTS INTERN Nora Leyva MD LAB - BLOOD ORDERABLES Performing Organization Address City/State/ZIP Code Phon e Number [facility] [address] [place] [address] [facility] Surgical pathology exam (12/24/2016 10:13 PM EVENTS INTERN) Component Value Ref Test Analysis Performed Pathologis t Range Method Time At Signature Copath Patient Name: DEANN KING DELBERTJAYLYN Report MR#: [id number] Specimen #: [id number] Collected: 12/24/2016 Received: 12/25/2016 Reported: 12/31/2016 10:03 [...] Electronically signed out by: Moshe Isaac M.D., [facility] CLINICAL HISTORY: 36-year-old admitted at 27-1/7 weeks' [...] fundus to cervix, 8.0 cm anterior to client services director ior, and 9.5 cm cornu to cornu. [...] endometrium is irregular-shaped. No masses are identified. Manager Online sections are submitted. Summary of Sections: A1 [...] fallopian tube wi th a pin-point lumen. Manager Online sections are submitted in ca ssette B1. [...] fallopian tube wi th a pin-point lumen. Manager Online sections are submitted in ca ssette C1. [...] measuring 2.0 x 2.0 x 1.2 cm. Manager Online sections are submitted as follows: Summary of [...] The section submitted as possible thrombus at [facility] shows a remote retroplacental hematoma. CPT Codes: A: 96469-EG3, 94199-IUQ, 38261-WDE B: 03501-MO7 C: 05622-XF8 D: 28108-EU2 TESTING LAB LOCATION: [facility], [address] [place] [id number] COLLECTION SITE: Client: [facility] Location: [id number] (B) Specimen (Source) Anatomical Collection Method Collection Time Re ceived Time Location / / Volume Laterality Tissue specimen UTERUS AND CERVIX, 12/24/2016 10:13 (specimen) CS / Unknown PM EVENTS INTERN Tissue specimen STRUCTURE OF RIGHT 12/24/2016 10:14 (specimen) FALLOPIAN TUBE / PM EVENTS INTERN Unknown Tissue specimen STRUCTURE OF LEFT 12/24/2016 10:14 (specimen) FALLOPIAN TUBE / PM EVENTS INTERN Unknown So Nunez MD LAB - BEAKER AP Performing Organization Address [facility] Code Phon e Number COPATH Partial thromboplastin time (12/24/2016 9:50 PM EVENTS INTERN) P athologist Signature PTT 33 22 - 37 sec 12/24/2016 [facility] 10:05 PM [facility] Specimen Anatomical Collection Method Collection Time Receive d Time (Source) Location / / Volume Laterality 12/24/2016 9:50 PM 7 9:52 EVENTS INTERN PM EVENTS INTERN Nora Leyva MD LAB - BLOOD ORDERABLES Performing Organization Address City/[facility]/ZIP Code Phon e Number [address] [address] [facility] (ABNORMAL) INR (12/24/2016 9:50 PM EVENTS INTERN) P athologist Signature INR 1.50 (H) 0.86 - 1.14 12/24/2016 [facility] 10:05 PM [facility] Specimen Anatomical Collection Method Collection Time Receive d Time (Source) Location / / Volume Laterality 12/24/2016 9:50 PM 7 9:52 EVENTS INTERN PM EVENTS INTERN Nora Leyva MD LAB - BLOOD ORDERABLES Performing Organization Address City/[facility]/ZIP Code Phon e Number [address] [place] [address] [facility] (ABNORMAL) Fibrinogen activity (12/24/2016 9:50 PM EVENTS INTERN) P athologist Signature Fibrinogen 189 (L) 200 - 420 12/24/2016 [facility] mg/dL 10:05 PM [facility] Specimen Anatomical Collection Method Collection Time Receive d Time (Source) Location / / Volume Laterality 12/24/2016 9:50 PM 7 9:52 EVENTS INTERN PM EVENTS INTERN Nora Leyva MD LAB - BLOOD ORDERABLES Performing Organization Address City/State/ZIP Code Phon e Number [facility] [address] [place] [address] [facility] (ABNORMAL) CBC with platelets (12/24/2016 9:50 PM EVENTS INTERN) Patholo gist Method Time Signature WBC 10.3 4.0 - 11.0 12/24/2016 [facility] 10e9/L 9:58 PM [facility] RBC Count 2.61 (L) 3.8 - 5.2 12/24/2016 [facility] 10e12/L 9:58 PM [facility] Hemoglobin 7.5 (L) 11.7 - 12/24/2016 [facility] 15.7 g/dL 9:58 PM [facility] Hematocrit 23.1 (L) 35.0 - 12/24/2016 [facility] 47.0 % 9:58 PM [facility] MCV 89 78 - 100 12/24/2016 [facility] fl 9:58 PM [facility] MCH 28.7 26.5 - 12/24/2016 [facility] 33.0 pg 9:58 PM [facility] MCHC 32.5 31.5 - 12/24/2016 [facility] 36.5 g/dL 9:58 PM [facility] RDW 14.5 10.0 - 12/24/2016 [facility] 15.0 % 9:58 PM [facility] Platelet Count 105 (L) 150 - 450 12/24/2016 [facility] 10e9/L 9:58 PM [facility] Specimen Anatomical Collection Method Collection Time Receive d Time (Source) Location / / Volume Laterality 12/24/2016 9:50 PM 7 9:52 EVENTS INTERN PM EVENTS INTERN Nora Leyva MD LAB - BLOOD ORDERABLES Performing Organization Address City/State/ZIP Code Phon e Number [address] [address] [facility] (ABNORMAL) Arterial Panel (12/24/2016 9:[address] [facility]) [facility] Method Time Signature pH Arterial 7.31 (L) 7.35 - 12/24/2016 [facility] 7.45 pH 9:58 PM [facility] pCO2 Arterial 38 35 - 45 12/24/2016 [facility] mm Hg 9:58 PM [facility] pO2 Arterial 197 (H) 80 - 105 12/24/2016 [facility] mm Hg 9:58 PM [facility] Bicarbonate 19 (L) 21 - 28 12/24/2016 [facility] Arterial mmol/L 9:58 PM [facility] Base Deficit Art 6.8 mmol/L 12/24/2016 [facility] F 9:58 PM [facility] Comment: Reference range: -9.0 to 1.8 FIO2 50 12/24/2016 9:54 PM [facility] Sodium 137 133 - 144 12/24/2016 9:58 PM [facility] mmol/L [facility] Potassium 3.7 3.4 - 5.3 12/24/2016 9:58 PM [facility] mmol/L [facility] Hemoglobin 7.5 (L) 11.7 - 15.7 12/24/2016 9:58 PM [facility] [place] [facility] [place] g/dL [facility] Glucose 155 (H) 70 - 99 mg/dL 12/24/2016 9:58 PM [facility] Calcium Ionized 4.6 4.4 - 5.2 12/24/2016 9:58 PM [facility] [place] Whole Blood mg/dL [facility] T BANK Specimen Anatomical Collection Method Collection Time Receive d Time (Source) Location / / Volume Laterality 12/24/2016 9:50 PM 7 9:52 EVENTS INTERN PM EVENTS INTERN Nora Leyva MD LAB - BLOOD ORDERABLES Performing Organization Address City/State/ZIP Code Phon e Number [facility] [place] [facility] [address] [address] [facility] (ABNORMAL) Arterial Panel (12/24/2016 9:20 PM EVENTS INTERN) [facility] Method Time Signature pH Arterial 7.31 (L) 7.35 - 12/24/2016 [facility] 7.45 pH 9:28 PM [facility] pCO2 Arterial 40 35 - 45 12/24/2016 [facility] mm Hg 9:28 PM [facility] pO2 Arterial 191 (H) 80 - 105 12/24/2016 [facility] mm Hg 9:28 PM [facility] Bicarbonate 20 (L) 21 - 28 12/24/2016 [facility] Arterial mmol/L 9:28 PM [facility] Base Deficit Art 5.8 mmol/L 12/24/2016 [facility] F 9:28 PM [facility] Comment: Reference range: -9.0 to 1.8 FIO2 50% 12/24/2016 9:26 PM [facility] Sodium 136 133 - 144 12/24/2016 9:28 PM [facility] mmol/L [facility] Potassium 3.9 3.4 - 5.3 12/24/2016 9:28 PM [facility] mmol/L [facility] Hemoglobin 8.7 (L) 11.7 - 15.7 12/24/2016 9:28 PM [facility] g/dL [facility] Glucose 165 (H) 70 - 99 mg/dL 12/24/2016 9:28 PM [facility] Calcium Ionized 4.4 4.4 - 5.2 12/24/2016 9:28 PM [facility] Whole Blood mg/dL [facility] T BANK Specimen Anatomical Collection Method Collection Time Receive d Time (Source) Location / / Volume Laterality 12/24/2016 9:20 PM 7 9:25 EVENTS INTERN PM EVENTS INTERN Nora Leyva MD LAB - BLOOD ORDERABLES Performing Organization Address City/State/ZIP Code Phon e Number [address] [address] [facility] Blood component (12/24/2016 8:45 PM EVENTS INTERN) [facility] Method Time Signature Unit Number [id number] 12/24/2016 [facility] 7 10:07 PM EVENTS INTERN [facility] B[facility] Blood PlateletPher 12/24/2016 [facility] Component esis,LeukoRe 10:07 PM [facility] [place] [facility] B[facility] Division 00 12/24/2016 [facility] Number 10:07 PM EVENTS INTERN [facility] Status of Released to 12/24/2016 [facility] Unit care unit 11:58 PM EVENTS INTERN [facility] Blood Product [id number] 12/24/2016 [facility] Code 10:07 PM EVENTS INTERN [facility] Unit Status [facility] Specimen Anatomical Collection Method Collection Time Receive d Time (Source) Location / / Volume Laterality 12/24/2016 8:45 PM 7 8:50 EVENTS INTERN PM EVENTS INTERN Nora Leyva MD LABORATORY Performing Organization Address City/[facility] Code Phon e Number [facility] [address] [place] [address] [address] [facility] Blood component (12/24/2016 8:45 PM EVENTS INTERN) [facility] gist Method Time Signature Unit Number [id number] 12/24/2016 [facility] 2 8:52 PM EVENTS INTERN [facility] B[facility] Blood PlateletPher 12/24/2016 [facility] Component esis,LeukoRe 8:52 PM [facility] [place] [facility] [place] [facility] B[facility] Division 00 12/24/2016 [facility] Number 8:52 PM EVENTS INTERN [facility] Status of Released to 12/24/2016 [facility] Unit care unit 11:58 PM EVENTS INTERN [facility] Blood Product [id number] 12/24/2016 [facility] Code 8:52 PM EVENTS INTERN [facility] Unit Status [facility] Specimen Anatomical Collection Method Collection Time Receive d Time (Source) Location / / Volume Laterality 12/24/2016 8:45 PM 7 8:50 EVENTS INTERN PM EVENTS INTERN Nora Leyva MD LABORATORY Performing Organization Address City/[facility] Phon e Number [facility] [address] [place] [address] [address] [facility] Platelets prepare order unit (12/24/2016 8:45 PM [facility]) [facility] Method Time Signature Blood PLT Pheresis 12/24/[address] [facility] 8:50 PM EVENTS INTERN [facility] Units Ordered 2 12/24/2016 [facility] 10:07 PM [facility] Specimen Anatomical Collection Method Collection Time Receive d Time (Source) Location / / Volume Laterality 12/24/2016 8:45 PM 7 8:50 EVENTS INTERN PM EVENTS INTERN Nora Leyva MD BLOOD BANK PRODUCT ORDERABLE S Performing Organization Address City/State/ZIP Code Phon e Number [address] [address] [facility] Partial thromboplastin time (12/24/2016 8:44 PM EVENTS INTERN) athologist Signature PTT 30 22 - 37 sec 12/24/2016 [facility] 9:05 PM [facility] Specimen Anatomical Collection Method Collection Time Receive d Time (Source) Location / / Volume Laterality 12/24/2016 8:44 PM 7 8:51 EVENTS INTERN PM EVENTS INTERN Nora Leyva MD LAB - BLOOD ORDERABLES Performing Organization Address City/State/ZIP Code Phon e Number [address] [address] [facility] (ABNORMAL) INR (12/24/2016 8:44 PM EVENTS INTERN) athologist Signature INR 1.16 (H) 0.86 - 1.14 12/24/2016 [facility] 9:05 PM [facility] Specimen Anatomical Collection Method Collection Time Receive d Time (Source) Location / / Volume Laterality 12/24/2016 8:44 PM 7 8:51 EVENTS INTERN PM EVENTS INTERN Nora Leyva MD LAB - BLOOD ORDERABLES Performing Organization Address City/State/ZIP Code Phon e Number [address] [address] [facility] Fibrinogen activity (12/24/2016 8:44 PM EVENTS INTERN) athologist Signature Fibrinogen 328 200 - 420 12/24/2016 [facility] mg/dL 9:05 PM [facility] Specimen Anatomical Collection Method Collection Time Receive d Time (Source) Location / / Volume Laterality 12/24/2016 8:44 PM 7 8:51 EVENTS INTERN PM EVENTS INTERN Nora Leyva MD LAB - BLOOD ORDERABLES Performing Organization Address City/[facility]/ZIP Code Phon e Number [address] [address] [facility] (ABNORMAL) CBC with platelets (12/24/2016 8:44 PM EVENTS INTERN) [facility] Method Time Signature WBC 5.8 4.0 - 11.0 12/24/2016 [facility] 10e9/L 9:16 PM EVENTS INTERN [facility] RBC Count 2.70 (L) 3.8 - 5.2 12/24/2016 [facility] 10e12/L 9:16 PM [facility] Hemoglobin 7.7 (L) 11.7 - 12/24/2016 [facility] 15.7 g/dL 9:16 PM [facility] Hematocrit 24.0 (L) 35.0 - 12/24/2016 [facility] 47.0 % 9:16 PM [facility] MCV 89 78 - 100 12/24/2016 [facility] fl 9:16 PM [facility] MCH 28.5 26.5 - 12/24/2016 [facility] 33.0 pg 9:16 PM [facility] MCHC 32.1 31.5 - 12/24/2016 [facility] 36.5 g/dL 9:16 PM [facility] RDW 16.4 (H) 10.0 - 12/24/2016 [facility] 15.0 % 9:16 PM [facility] Platelet Count 156 150 - 450 12/24/2016 [facility] 10e9/L 9:16 PM [facility] Specimen Anatomical Collection Method Collection Time Receive d Time (Source) Location / / Volume Laterality 12/24/2016 8:44 PM 7 8:51 EVENTS INTERN PM EVENTS INTERN Nora Leyva MD LAB - BLOOD ORDERABLES Performing Organization Address City/[facility] Phon e Number [address] [address] [facility] (ABNORMAL) Arterial Panel (12/24/2016 8:44 PM EVENTS INTERN) [facility] Method Time Signature pH Arterial 7.29 (L) 7.35 - 12/24/2016 [facility] 7.45 pH 8:56 PM [facility] pCO2 Arterial 41 35 - 45 12/24/2016 [facility] mm Hg 8:56 PM [facility] pO2 Arterial 355 (H) 80 - 105 12/24/2016 [facility] mm Hg 8:56 PM [facility] Bicarbonate 20 (L) 21 - 28 12/24/2016 [facility] Arterial mmol/L 8:56 PM [facility] Base Deficit Art 6.1 mmol/L 12/24/2016 [facility] F 8:56 PM [facility] Comment: Reference range: -9.0 to 1.8 FIO2 100% 12/24/2016 8:53 PM [facility] Sodium 137 133 - 144 12/24/2016 8:56 PM [facility] mmol/L [facility] Potassium 3.6 3.4 - 5.3 12/24/2016 8:56 PM [facility] mmol/L [facility] Hemoglobin 7.6 (L) 11.7 - 15.7 12/24/2016 8:56 PM [facility] [facility] [place] g/dL [facility] Glucose 160 (H) 70 - 99 mg/dL 12/24/2016 8:56 PM [facility] Calcium Ionized 4.1 (L) 4.4 - 5.2 12/24/2016 8:56 PM [facility] Whole Blood mg/dL [facility] T BANK Specimen Anatomical Collection Method Collection Time Receive d Time (Source) Location / / Volume Laterality 12/24/2016 8:44 PM 7 8:51 EVENTS INTERN [address] [facility] Nora Leyva MD LAB - BLOOD ORDERABLES Performing Organization Address City/State/ZIP Code Phon e Number [facility] [address] [place] [address] [facility] (ABNORMAL) Arterial Panel (12/24/2016 8:[address] [facility]) [facility] Method Time Signature pH Arterial 7.30 (L) 7.35 - 12/24/2016 [facility] 7.45 pH 8:33 PM [facility] pCO2 Arterial 40 35 - 45 12/24/2016 [facility] mm Hg 8:33 PM [facility] pO2 Arterial 195 (H) 80 - 105 12/24/2016 [facility] mm Hg 8:33 PM [facility] Bicarbonate 19 (L) 21 - 28 12/24/2016 [facility] Arterial mmol/L 8:33 PM [facility] Base Deficit Art 6.6 mmol/L 12/24/2016 [facility] F 8:33 PM [facility] Comment: Reference range: -9.0 to 1.8 FIO2 100% 12/24/2016 8:29 PM [facility] Sodium 135 133 - 144 12/24/2016 8:33 PM [facility] mmol/L [facility] Potassium 4.1 3.4 - 5.3 12/24/2016 8:33 PM [facility] mmol/L [facility] Hemoglobin 8.0 (L) 11.7 - 15.7 12/24/2016 8:33 PM [facility] g/dL [facility] Glucose 136 (H) 70 - 99 mg/dL 12/24/2016 8:33 PM [facility] Calcium Ionized 4.3 (L) 4.4 - 5.2 12/24/2016 8:33 PM [facility] [place] [place] Whole Blood mg/dL [facility] T BANK Specimen Anatomical Collection Method Collection Time Receive d Time (Source) Location / / Volume Laterality 12/24/2016 8:25 PM 7 8:29 EVENTS INTERN PM EVENTS INTERN Nora Leyva MD LAB - BLOOD ORDERABLES Performing Organization Address City/State/ZIP Code Phon e Number [facility] [address] [place] [address] [facility] Blood component (12/24/2016 7:25 PM EVENTS INTERN) [facility] Method Time Signature Unit Number [id number] 12/24/2016 [facility] 10:10 PM [facility] Blood Plasma, 12/24/2016 [facility] Component Thawed 10:10 PM [facility] 00 12/24/2016 [facility] Number 10:10 PM [facility] Status of No longer 12/24/2016 [facility] Unit available 11:49 PM [facility] 12/24/[address] [facility] 2349 BANK Blood Product [id number] 12/24/2016 [facility] Code 10:10 PM EVENTS INTERN [facility] Unit Status RET [facility] Specimen Anatomical Collection Method Collection Time Receive d Time (Source) Location / / Volume Laterality 12/24/2016 7:25 PM 7 7:30 EVENTS INTERN PM EVENTS INTERN Nora Leyva MD LAB - BLOOD BANK PRODUCT ORD ER Performing Organization Address City/[facility] Code Phon e Number [address] [address] [facility] Blood component (12/24/2016 7:25 PM EVENTS INTERN) [facility] [employer] Method Time Signature Unit Number [id number] 12/24/2016 [facility] 10:10 PM [facility] BANK Blood Plasma, 12/24/2016 [facility] Component Thawed 10:10 PM EVENTS INTERN [facility] BANK Division 00 12/24/2016 [facility] Number 10:10 PM [facility] Status of No longer 12/24/2016 [facility] Unit available 11:48 PM EVENTS INTERN [facility] 12/24/[address] [facility] 2348 BANK Blood Product [id number] 12/24/2016 [facility] Code 10:10 PM [facility] Unit Status RET [facility] Specimen Anatomical Collection Method Collection Time Receive d Time (Source) Location / / Volume Laterality 12/24/2016 7:25 PM 7 7:30 EVENTS INTERN PM EVENTS INTERN Nora Leyva MD LAB - BLOOD BANK PRODUCT ORD ER Performing Organization Address City/[facility] Code Phon e Number [address] [address] [facility] Blood component (12/24/2016 7:25 PM EVENTS INTERN) [facility] [employer] Method Time Signature Unit Number [id number] 12/24/2016 [facility] 9 9:03 PM EVENTS INTERN [facility] BANK Blood Plasma, 12/24/2016 [facility] Component Thawed 9:03 PM EVENTS INTERN [facility] BANK Division 00 12/24/2016 [facility] Number 9:03 PM [facility] B[facility] Status of Released to 12/24/2016 [facility] Unit care unit 11:58 PM EVENTS INTERN [facility] Blood Product [id number] 12/24/2016 [facility] Code 9:03 PM EVENTS INTERN [facility] Unit Status [facility] Specimen Anatomical Collection Method Collection Time Receive d Time (Source) Location / / Volume Laterality 12/24/2016 7:25 PM 7 7:30 EVENTS INTERN PM EVENTS INTERN Nora Leyva MD LABORATORY Performing Organization Address City/[facility]/ZIP Code Phon e Number [facility] [address] [place] [address] [address] [place] [facility] Blood component (12/24/2016 7:25 PM EVENTS INTERN) [employer] Method Time Signature Unit Number [id number] 12/24/2016 [facility] 7 9:03 PM [facility] B[facility] Blood Plasma, 12/24/2016 [facility] Component Thawed 9:03 PM EVENTS INTERN [facility] B[facility] Division 00 12/24/2016 [facility] Number 9:03 PM [facility] B[facility] Status of Released to 12/24/2016 [facility] Unit care unit 11:58 PM EVENTS INTERN [facility] Blood Product [id number] 12/24/2016 [facility] Code 9:03 PM [facility] Unit Status [facility] Specimen Anatomical Collection Method Collection Time Receive d Time (Source) Location / / Volume Laterality 12/24/2016 7:25 PM 7 7:30 EVENTS INTERN PM EVENTS INTERN Nora Leyva MD LABORATORY Performing Organization Address City/[facility]/ZIP Code Phon e Number [facility] [address] [place] [address] [address] [facility] Blood component (12/24/2016 7:25 PM EVENTS INTERN) [facility] [employer] Method Time Signature Unit Number [id number] 12/24/2016 [facility] 8:18 PM [facility] B[facility] Blood Apheresis 12/24/2016 [facility] Component Plasma Thawed 8:18 PM EVENTS INTERN [facility] B[facility] Division 00 12/24/2016 [facility] Number 8:18 PM [facility] Status of Released to 12/24/2016 [facility] Unit care unit 11:58 PM EVENTS INTERN [facility] Blood Product [id number] 12/24/2016 [facility] Code 8:18 PM EVENTS INTERN [facility] Unit Status [facility] Specimen Anatomical Collection Method Collection Time Receive d Time (Source) Location / / Volume Laterality 12/24/2016 7:25 PM 7 7:30 EVENTS INTERN PM EVENTS INTERN Nora Leyva MD LABORATORY Performing Organization Address City/[facility]/ZIP Code Phon e Number [facility] [address] [place] [address] [address] [facility] Blood component (12/24/2016 7:25 PM EVENTS INTERN) [facility] [employer] Method Time Signature Unit Number [id number] 12/24/2016 [facility] 5 8:18 PM EVENTS INTERN [facility] Blood Plasma, 12/24/2016 [facility] Component Thawed 8:18 PM EVENTS INTERN [facility] B[facility] Division 00 12/24/2016 [facility] Number 8:18 PM EVENTS INTERN [facility] Status of Released to 12/24/2016 [facility] OF Unit care unit 11:58 PM EVENTS INTERN [facility] Blood Product [id number] 12/24/2016 [facility] Code 8:18 PM EVENTS INTERN [facility] Unit Status [facility] Specimen Anatomical Collection Method Collection Time Receive d Time (Source) Location / / Volume Laterality 12/24/2016 7:25 PM 7 7:30 EVENTS INTERN PM EVENTS INTERN Nora Leyva MD LABORATORY Performing Organization Address City/[facility]/ZIP Code Phon e Number [facility] [address] [place] [address] [address] [place]ST [place] Blood component (12/24/2016 7:25 PM EVENTS INTERN) [facility] [employer] Method Time Signature Unit Number [id number] 12/24/2016 [facility] 3 8:18 PM EVENTS INTERN [facility] Blood Plasma, 12/24/2016 [facility] Component Thawed 8:18 PM EVENTS INTERN [facility] B[facility] Division 00 12/24/2016 [facility] Number 8:18 PM EVENTS INTERN [facility] Status of Released to 12/24/2016 [facility] Unit care unit 11:58 PM EVENTS INTERN [facility] Blood Product [id number] 12/24/2016 [facility] Code 8:18 PM EVENTS INTERN [facility] Unit Status [facility] Specimen Anatomical Collection Method Collection Time Receive d Time (Source) Location / / Volume Laterality 12/24/2016 7:25 PM 7 7:30 EVENTS INTERN PM EVENTS INTERN Nora Leyva MD LABORATORY Performing Organization Address City/[facility]/ZIP Code Phon e Number [facility] [address] [place] [address] [address] [place]ST [place] Blood component (12/24/2016 7:25 PM EVENTS INTERN) [facility] Method Time Signature Unit Number [id number] 12/24/2016 [facility] 9 8:18 PM EVENTS INTERN [facility] BANK Blood Plasma, 12/24/2016 [facility] Component Thawed 8:18 PM EVENTS INTERN [facility] WE[facility] BANK Division 00 12/24/2016 [facility] Number 8:18 PM EVENTS INTERN [facility] Status of Released to 12/24/2016 [facility] Unit care unit 11:58 PM EVENTS INTERN [facility] Blood Product [id number] 12/24/2016 [facility] Code 8:18 PM EVENTS INTERN [facility] Unit Status [facility] Specimen Anatomical Collection Method Collection Time Receive d Time (Source) Location / / Volume Laterality 12/24/2016 7:25 PM 7 7:30 EVENTS INTERN PM EVENTS INTERN Nora Leyva MD LABORATORY Performing Organization Address City/[facility]/ZIP Code Phon e Number [facility] [address] [place] [address] [place] [id number] [place] [address] WEST BANK Plasma prepare order unit (12/24/2016 7:25 PM EVENTS INTERN) P athologist Signature Blood Plasma 12/24/2016 [facility] Component Type 7:31 PM EVENTS INTERN [facility] Units Ordered 8 12/24/2016 [facility] 10:10 PM EVENTS INTERN [facility] Specimen Anatomical Collection Method Collection Time Receive d Time (Source) Location / / Volume Laterality 12/24/2016 7:25 PM 7 7:30 EVENTS INTERN PM EVENTS INTERN Nora Leyva MD BLOOD BANK PRODUCT ORDERABLE S Performing Organization Address City/State/ZIP Code Phon e Number [facility] [address] [place] [address] [facility] (ABNORMAL) CBC with platelets differential (12/24/2016 7:06 PM EVENTS INTERN) [facility] gist Method Time Signature WBC 10.4 4.0 - 12/24/2016 [facility] 11.0 7:11 PM [facility] 10e9/L [facility] RBC Count 2.99 (L) 3.8 - 5.2 12/24/2016 [facility] 10e12/L 7:11 PM [facility] Hemoglobin 9.0 (L) 11.7 - 12/24/2016 [facility] 15.7 g/dL 7:11 PM [facility] Hematocrit 28.5 (L) 35.0 - 12/24/2016 [facility] 47.0 % 7:11 PM [facility] MCV 95 78 - 100 12/24/2016 [facility] fl 7:11 PM [facility] MCH 30.1 26.5 - 12/24/2016 [facility] 33.0 pg 7:11 PM [facility] MCHC 31.6 31.5 - 12/24/2016 [facility] 36.5 g/dL 7:11 PM [facility] RDW 16.1 (H) 10.0 - 12/24/2016 [facility] 15.0 % 7:11 PM [facility] Platelet Count 256 150 - 450 12/24/2016 [facility] 10e9/L 7:11 PM [facility] Diff Method Automated 12/24/2016 [facility] Method 7:11 PM [facility] % Neutrophils 69.4 % 12/24/2016 [facility] 7:11 PM [facility] % Lymphocytes 21.5 % 12/24/2016 [facility] 7:11 PM [facility] % Monocytes 5.7 % 12/24/2016 [facility] 7:11 PM [facility] % Eosinophils 2.9 % 12/24/2016 [facility] 7:11 PM [facility] % Basophils 0.1 % 12/24/2016 [facility] 7:11 PM [facility] % Immature 0.4 % 12/24/2016 [facility] Granulocytes 7:11 PM [facility] Nucleated RBCs 0 0 /100 12/24/2016 [facility] 7:11 PM [facility] Absolute 7.2 1.6 - 8.3 12/24/2016 [facility] Neutrophil 10e9/L 7:11 PM [facility] Absolute 2.2 0.8 - 5.3 12/24/2016 [facility] Lymphocytes 10e9/L 7:11 PM [facility] Absolute 0.6 0.0 - 1.3 12/24/2016 [facility] Monocytes 10e9/L 7:11 PM [facility] Absolute 0.3 0.0 - 0.7 12/24/2016 [facility] Eosinophils 10e9/L 7:11 PM [facility] Absolute 0.0 0.0 - 0.2 12/24/2016 [facility] Basophils 10e9/L 7:11 PM [facility] Abs Immature 0.0 0 - 0.4 12/24/2016 [facility] Granulocytes 10e9/L 7:11 PM [facility] Absolute 0.0 12/24/2016 [facility] Nucleated RBC 7:11 PM [facility] Specimen Anatomical Collection Method Collection Time Receive d Time (Source) Location / / Volume Laterality Blood specimen 12/24/2016 7:06 PM 017 7:07 (specimen) EVENTS INTERN PM EVENTS INTERN Kayla Davidson MD LAB - BLOOD ORDERABLES Performing Organization Address City/State/ZIP Code Phon e Number [facility] [address] [place] [address] [facility] Urine Culture Aerobic Bacterial (12/24/2016 7:50 AM EVENTS INTERN) Component Value Ref Test Analysis Performed At [facility] Range Method Time Signature Specimen Midstream Urine INFECTIOUS Description DISEASE DIAGNOSTIC LABORATORY Special Specimen received 12/24/2016 [facility] in preservative 11:03 AM [facility] Culture Micro <10,000 colonies/mL 12/25/2016 INFEC TIOUS mixed urogenital evelina 7:35 AM EVENTS INTERN DISEA SE Susceptibility testing not routinely done DIAGNOSTIC LABORATORY Specimen (Source) Anatomical Collection Method Collection Time Re ceived Time Location / / Volume Laterality Examination of 12/24/2016 7:50 12/24/2016 8:46 midstream urine AM EVENTS INTERN AM EVENTS INTERN specimen (procedure) Nora Leyva MD LAB - MICRO GENERAL ORDERABL ES Performing Organization Address City/State/ZIP Code Phon e Number INFECTIOUS DISEASES [address] [place] [address] DIAGNOSTIC LABORATORY, [facility] INFECTIOUS DISEASE [address] [place] [address], [facility] DIAGNOSTIC LABORATORY [id number] [place] [address] (ABNORMAL) UA with Microscopic reflex to Culture (12/24/2016 7:50 AM EVENTS INTERN) [facility] gist Method Time Signature Color Urine Yellow 12/24/2016 [facility] 8:35 AM [facility] Appearance Urine Clear 12/24/2016 [facility] F 8:35 AM [facility] Glucose Urine Negative NEG^Negat 12/24/2016 [facility] paula mg/dL 8:35 AM [facility] Bilirubin Urine Negative NEG^Negat 12/24/2016 [facility] [place]ula 8:35 AM [facility] Ketones Urine Negative NEG^Negat 12/24/2016 [facility] [place] mg/dL 8:35 AM [facility] Specific [place] 1.013 1.003 - 12/24/2016 [facility] F Urine 1.035 8:35 AM [facility] Blood Urine Moderate (A) NEG^Negat 12/24/2016 [facility] paula 8:35 AM [facility] pH Urine 6.5 5.0 - 7.0 12/24/2016 [facility] pH 8:35 AM [facility] Protein Albumin Negative NEG^Negat 12/24/2016 [facility] Urine paula mg/dL 8:35 AM [facility] Urobilinogen Normal 0.0 - 2.0 12/24/2016 [facility] mg/dL mg/dL 8:35 AM [facility] Nitrite Urine Negative NEG^Negat 12/24/2016 [facility] [place]ula 8:35 AM [facility] Leukocyte Large (A) NEG^Negat 12/24/2016 [facility] Esterase Urine paula 8:35 AM [facility] Source Midstream 12/24/2016 [facility] Urine 8:06 AM [facility] WBC Urine 24 (H) 0 - 2 12/24/2016 [facility] /HPF 8:37 AM [facility] RBC Urine 34 (H) 0 - 2 12/24/2016 [facility] /HPF 8:37 AM [facility] Bacteria Urine Few (A) NEG^Negat 12/24/2016 [facility] paula /HPF 8:37 AM [facility] Squamous 2 (H) 0 - 1 12/24/2016 [facility] Epithelial /HPF /HPF 8:37 AM [facility] Transitional Epi <1 0 - 1 12/24/2016 [facility] O F /HPF 8:37 AM [facility] Specimen (Source) Anatomical Collection Method Collection Time Re ceived Time Location / / Volume Laterality Examination of URINE SPECIMEN 12/24/2016 7:50 12/25/19 17 8:05 midstream urine OBTAINED BY CLEAN AM EVENTS INTERN AM EVENTS INTERN specimen CATCH PROCEDURE / (procedure) Unknown Petrona Barone DO LAB - URINE ORDERABLES Performing Organization Address City/[facility] Phon e Number [place] [phone] [facility] (ABNORMAL) Wet prep (12/23/2016 11:53 PM EVENTS INTERN) Component Value Ref Test Analysis Performed At [facility] gist Range Method Time Signature Specimen Vagina [facility] Wet Prep No motile 12/24/2016 [facility] Trichomonas 12:21 AM [facility] seen [facility] Wet Prep Rare 12/24/2016 [facility] Yeast seen 12:21 AM [facility] (A) [facility] Wet Prep Moderate 12/24/2016 [facility] PMNs seen 12:21 AM [facility] Wet Prep No clue cells 12/24/2016 [facility] seen 12:21 AM [facility] Specimen Anatomical Collection Method Collection Time Receive d Time (Source) Location / / Volume Laterality Specimen from 12/23/2016 11:53 12/24/2016 vagina PM EVENTS INTERN 12:10 AM EVENTS INTERN (specimen) Petrona Barone DO LAB - MICRO GENERAL ORDERABL ES Performing Organization Address City/[facility]/ZIP [facility] Phon e Number [place] [phone] [facility] Maternal BPP Single (12/23/2016 8:37 AM EVENTS INTERN) Anatomical Region Laterality Modality Ultrasound Specimen (Source) Anatomical Collection Method Collection Time Re ceived Time Location / / Volume Laterality 12/23/2016 8:05 AM EVENTS INTERN Impressions 12/23/2016 11:10 AM EVENTS INTERN IMPRESSION 1) Intrauterine at 29 3/7 week s gestational age. 2) The BPP is reassuring. 3) The amniotic fluid volume low consist ent with known PPROM. 4) There is a complete posterior/lateral placenta previa. Narrative 12/23/2016 11:10 AM EVENTS INTERN BPP Pat. Name: DEANN KING Study Date: 8:05am Pat. 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 METHOD [facility] ANTEPARTUM inpatient exam, Transabd ominal ultrasound examination. [...] present but not detected. Procedure Note Petrona Barone, - 12/23/2016 BPP Pat. Name:Elizabeth KING Date:12/23 8:05am Pat. NO: [id number] MD:CHRIST BHAT ON [facility]Yesenia [facility] RDMS :1980Age:36 INDICATION Premature Rupture of Membranes ( PPROM) Complete previa. METHOD [facility] ANTEPARTUM inpatient exam, Transabd ominal ultrasound examination. [...] complete posterior/lateral placenta previa. Lashawn Patel MD [facility] ORDERABLES Blood component (12/23/2016 6:54 AM EVENTS INTERN) [facility] Method Time Signature Unit Number [id number] 12/24/2016 [facility] 9:49 PM [facility] Blood Red Blood 12/24/2016 [facility] Component Cells 9:49 PM [facility] MEDICAL [facility] WEST [facility] BANK Division 00 12/24/2016 UN[facility]ITY [facility] 9:49 PM [facility] Status of Released to 12/24/2016 [facility] Unit care unit 11:58 PM EVENTS INTERN [facility] Blood Product [id number] 12/24/2016 [facility] Code 9:49 PM EVENTS INTERN [facility] Unit Status [facility] Specimen Anatomical Collection Method Collection Time Receive d Time (Source) Location / / Volume Laterality 12/23/2016 6:54 AM 7 6:55 EVENTS INTERN AM EVENTS INTERN Nora [facility] Ayannah LABORATORY Performing Organization Address City/State/ZIP Code Phon e Number [facility] [address] [place] [address] [address] WEST [place] Blood component (12/23/2016 6:54 AM EVENTS INTERN) [facility] [employer] Method Time Signature Unit Number [id number] 12/24/2016 [facility] 9:49 PM [facility] Blood Red Blood 12/24/2016 [facility] Component Cells 9:49 PM EVENTS INTERN [facility] Leukocyte [facility] Reduced BANK Division 00 12/24/2016 [facility] Number 9:49 PM [facility] BANK Status of No longer 12/24/2016 [facility] Unit available 11:50 PM EVENTS INTERN [facility] 12/24/2016 [place] [id number] BANK Blood Product [id number] 12/24/2016 [facility] Code 9:49 PM [facility] B[facility] Unit Status RET [facility] Specimen Anatomical Collection Method Collection Time Receive d Time (Source) Location / / Volume Laterality 12/23/2016 6:54 AM 7 6:55 EVENTS INTERN AM EVENTS INTERN Nora Linbold [place] LABORATORY Performing Organization Address City/State/ZIP Code Phon e Number [address] [address] WEST BANK Blood component (12/23/2016 6:54 AM EVENTS INTERN) [facility] [employer] Method Time Signature Unit Number [id number] 12/24/2016 [facility] 9:49 PM EVENTS INTERN [facility] Blood Red Blood 12/24/2016 [facility] Component Cells 9:49 PM EVENTS INTERN [facility] Leukocyte [facility] Reduced BANK Division 00 12/24/2016 [facility] Number 9:49 PM [facility] B[facility] Status of Released to 12/24/2016 [facility] OF Unit care unit 11:58 PM EVENTS INTERN [facility] Blood Product [id number] 12/24/2016 [facility] Code 9:49 PM EVENTS INTERN [facility] Unit Status [facility] Specimen Anatomical Collection Method Collection Time Receive d Time (Source) Location / / Volume Laterality 12/23/2016 6:54 AM 7 6:55 EVENTS INTERN AM EVENTS INTERN [facility] LAB - BLOOD BANK PRODUCT ORD ER Performing Organization Address City/[facility]/ZIP Code Phon e Number [facility] [address] [place] [address] [address] WEST BANK Blood component (12/23/2016 6:54 AM EV[facility] INTERN) [facility] Time Signature Unit Number [id number] 12/24/2016 [facility] 9:49 PM EVENTS INTERN [facility] BANK Blood Red Blood 12/24/2016 [facility] OF Component Cells 9:49 PM EVENTS INTERN [facility] WEST Reduced BANK Division 00 12/24/2016 [facility] Number 9:49 PM EVENTS INTERN [facility] B[facility] Status of Released to 12/24/2016 [facility] Unit care unit 11:58 PM EVENTS INTERN [facility] Blood Product [id number] 12/24/2016 [facility] Code 9:49 PM [facility] Unit Status [facility] Specimen Anatomical Collection Method Collection Time Receive d Time (Source) Location / / Volume Laterality 12/23/2016 6:54 AM 7 6:55 EVENTS INTERN AM [facility] INTERN [facility] - [facility]LOOD [facility]ANK PRODUCT ORD ER Performing Organization Address City/[facility] Code Phon e Number [facility] [address] [place] [address] [address] WEST [place]ANK Blood component (12/23/2016 6:54 AM EVENTS INTERN) [employer] Method Time Signature Unit Number [id number] 12/24/2016 [facility] 8:38 PM EVENTS INTERN [facility] B[facility] Blood Red Blood 12/24/2016 [facility] Component Cells 8:38 PM EVENTS INTERN [facility] Leukocyte [facility] Reduced BANK Division 00 12/24/2016 [facility] Number 8:38 PM EVENTS INTERN [facility] B[facility] Status of Released to 12/24/2016 [facility] OF Unit care unit 11:58 PM EVENTS INTERN [facility] Blood Product [id number] 12/24/2016 [facility] Code 8:38 PM EVENTS INTERN [facility] Unit Status [facility] Specimen Anatomical Collection Method Collection Time Receive d Time (Source) Location / / Volume Laterality 12/23/2016 6:54 AM 7 6:55 EVENTS INTERN AM EVENTS INTERN [facility]ora [facility] LAB - BLOOD BANK PRODUCT ORD ER Performing Organization Address City/[facility] Code Phon e Number [facility] [address] [place] [address] [address] WEST [place] Blood component (12/23/2016 6:54 AM EVENTS INTERN) [employer] Method Time Signature Unit Number [id number] 12/24/2016 [facility]ITY OF 8:38 PM EVENTS INTERN [facility] BANK Blood Red Blood 12/24/2016 [facility] OF Component Cells 8:38 PM EVENTS INTERN [facility] Leukocyte [facility] Reduced BANK Division 00 12/24/2016 [facility] Number 8:38 PM [facility] BANK Status of Released to 12/24/2016 [facility] OF Unit care unit 11:58 PM EVENTS INTERN [facility] Blood Product [id number] 12/24/2016 [facility] OF Code 8:38 PM [facility] Unit Status [facility] Specimen Anatomical Collection Method Collection Time Receive d Time (Source) Location / / Volume Laterality 12/23/2016 6:54 AM 7 6:55 EVENTS INTERN AM EVENTS INTERN [facility] LAB - BLOOD BANK PRODUCT ORD ER Performing Organization Address City/[facility] Code Phon e Number [facility] [address] [place] [address] [address] WEST BANK Blood component (12/23/2016 6:54 AM EVENTS INTERN) [employer] Method Time Signature Unit Number [id number] 12/24/2016 [facility]ITY OF 8:38 PM EVENTS INTERN [facility] BANK Blood Red Blood 12/24/2016 [facility]ITY OF Component Cells 8:38 PM EVENTS INTERN [facility] Leukocyte [facility] Reduced BANK Division 00 12/24/2016 [facility] OF Number 8:38 PM EVENTS INTERN [facility] B[facility] Status of Released to 12/24/2016 [facility] OF Unit care unit 11:58 PM [facility] INTERN [facility] Blood Product [id number] 12/24/2016 [facility] OF Code 8:38 PM EVENTS INTERN [facility] Unit Status [facility] Specimen Anatomical Collection Method Collection Time Receive d Time (Source) Location / / Volume Laterality 12/23/2016 6:54 AM 7 6:55 EVENTS INTERN AM EVENTS INTERN Nora [employer] LABORATORY Performing Organization Address City/State/ZIP Code Phon e Number [facility] [address] [place] [address] [address] [place] BANK Blood component (12/23/2016 6:54 AM EVENTS INTERN) [facility] [employer] Method Time Signature Unit Number [id number] 12/24/2016 [facility]ITY OF 8:38 PM EVENTS INTERN [facility] B[facility] Blood Red Blood 12/24/2016 [facility]ITY OF Component Cells 8:38 PM EVENTS INTERN [facility] WEST Reduced BANK Division 00 12/24/2016 [facility] OF Number 8:38 PM EVENTS INTERN [facility] B[facility] Status of Released to 12/24/2016 [facility] OF Unit care unit 11:58 PM EVENTS INTERN [facility] Blood Product [id number] 12/24/2016 [facility] Code 8:38 PM EVENTS INTERN [facility] Unit Status [facility] Specimen Anatomical Collection Method Collection Time Receive d Time (Source) Location / / Volume Laterality 12/23/2016 6:54 AM 7 6:55 EVENTS INTERN AM EVENTS INTERN [employer] LABORATORY Performing Organization Address City/State/ZIP Code Phon e Number [facility] [address] [place] [address] [address] WEST BANK Blood component (12/23/2016 6:54 AM EVENTS INTERN) [facility] [employer] Method Time Signature Unit Number [id number] 12/24/2016 [facility]ITY OF 7:32 PM [facility] BANK Blood Red Blood 12/24/2016 UN[facility]ERSITY OF Component Cells 7:32 PM EVENTS INTERN [facility] Leukocyte [facility] Reduced BANK Division 00 12/24/2016 [facility] OF Number 7:32 PM EVENTS INTERN [facility] B[facility] Status of Released to 12/24/2016 [facility] OF Unit care unit 11:58 PM EVENTS INTERN [facility] Blood Product [id number] 12/24/2016 [facility] Code 7:32 PM EVENTS INTERN [facility] Unit Status [facility] Specimen Anatomical Collection Method Collection Time Receive d Time (Source) Location / / Volume Laterality 12/23/2016 6:54 AM 7 6:55 EVENTS INTERN AM EVENTS INTERN [employer] LABORATORY Performing Organization Address City/State/ZIP Code Phon e Number [facility] [address] [place] [address] [address] [place] BANK Blood component (12/23/2016 6:54 AM EVENTS INTERN) [facility] [employer] Method Time Signature Unit Number [id number] 12/24/2016 [facility]ITY OF 7:32 PM EVENTS INTERN [facility] B[facility] Blood Red Blood 12/24/2016 [facility]ITY OF Component Cells 7:32 PM EVENTS INTERN [facility] WEST Reduced BANK Division 00 12/24/2016 [facility]ERSITY OF Number 7:32 PM [facility] BANK Status of Released to 12/24/2016 [facility]ITY OF Unit care unit 11:58 PM EVENTS INTERN [facility] Blood Product [id number] 12/24/2016 [facility]ERSITY OF Code 7:32 PM EVENTS INTERN [facility] Unit Status [facility] Specimen Anatomical Collection Method Collection Time Receive d Time (Source) Location / / Volume Laterality 12/23/2016 6:54 AM 7 6:55 EVENTS INTERN AM EVENTS INTERN [employer] LABORATORY Performing Organization Address City/State/ZIP Code Phon e Number [facility] [address] [place] [address] [address] [place]ST [place] Blood component (12/23/2016 6:54 AM EVENTS INTERN) [facility] [employer] Method Time Signature Unit Number [id number] 12/24/2016 UN[facility]ERSITY OF 7:05 PM EVENTS INTERN [facility] B[facility] Blood Red Blood 12/24/2016 UN[facility]ERSITY OF Component Cells 7:05 PM EVENTS INTERN [facility] Leukocyte [facility] Reduced BANK Division 00 12/24/2016 [facility]ITY OF Number 7:05 PM [facility] B[facility] Status of Released to 12/24/2016 UN[facility]ERSITY OF Unit care unit 11:58 PM [facility] Blood Product [id number] 12/24/2016 [facility]ERSITY OF Code 7:05 PM [facility] Unit Status [facility] Specimen Anatomical Collection Method Collection Time Receive d Time (Source) Location / / Volume Laterality 12/23/2016 6:54 AM 7 6:55 EVENTS INTERN AM EVENTS INTERN [employer] [facility]ORAT[facility] Performing Organization Address City/State/ZIP Code Phon e Number [facility] [address] [place] [address] [address] [facility] Blood component (12/23/2016 6:54 AM EVENTS INTERN) [facility] Photo[employer]en Method Time Signature Unit Number [id number] 12/24/2016 UN[facility]ERSITY OF 7:05 PM [facility] B[facility] Blood Red Blood 12/24/2016 UN[facility]ERSITY OF Component Cells 7:05 PM [facility] Reduced BANK Division 00 12/24/2016 UN[facility]ERSITY OF Number 7:05 PM [facility] Status of Released to 12/24/2016 UN[facility]ERSITY OF Unit care unit 11:58 PM [facility] Blood Product [id number] 12/24/2016 UN[facility]ERSITY OF Code 7:05 PM [facility] B[facility] Unit Status [facility] Specimen Anatomical Collection Method Collection Time Receive d Time (Source) Location / / Volume Laterality 12/23/2016 6:54 AM 7 6:55 EVENTS INTERN AM EVENTS INTERN [employer] LABORATORY Performing Organization Address City/State/ZIP Code Phon e Number [facility] [address] [place] [address] [address] [facility] ABO/Rh type and screen (12/23/2016 6:54 AM EVENTS INTERN) [facility] [employer] Method Time Signature Units Ordered 12 12/24/2016 UNIVERSITY OF 9:49 PM EVENTS INTERN [facility] ABO B 12/23/2016 UN[facility]ERSITY OF 7:32 AM EVENTS INTERN [facility] BANK RH(D) Pos [facility] B[facility] Antibody Neg 12/23/2016 UNIVERSITY OF Screen 7:32 AM EVENTS INTERN [facility] Test Valid University of 12/23/2016 UN[facility]ITY OF Only [facility] [place] 7:01 AM EVENTS INTERN [facility] BANK w Hospital Specimen 12/26/2016 12/23/2016 UNIVERSITY OF Expires 7:01 AM EVENTS INTERN [facility] BANK Crossmatch Red Blood 12/24/2016 UNIVERSITY OF Cells 7:05 PM EVENTS INTERN [facility] Specimen Anatomical Collection Method Collection Time Receive d Time (Source) Location / / Volume Laterality Blood specimen 12/23/2016 6:54 AM 017 6:55 (specimen) EVENTS INTERN AM EVENTS INTERN Nora Mohamud LAB - BLOOD BANK TEST ORDER Performing Organization Address City/[facility]/ZIP Code Phon e Number [address] [address] [facility] ABO/Rh type and screen (12/20/2016 10:48 AM CDT) [facility] gist Method Time Signature ABO B 12/20/2016 UNIVERSITY OF 11:31 AM CDT [facility] BANK RH(D) Pos [facility] B[facility] Antibody Neg 12/20/2016 UNIVERSITY OF Screen 11:31 AM CDT [facility] Test Valid University of 12/20/2016 [facility]ITY OF Only [facility] [place] 11:00 AM CDT [facility] BANK w Hospital Specimen 12/23/2016 12/20/2016 UNIVERSITY OF Expires 11:00 AM CDT [facility] Specimen Anatomical Collection Method Collection Time Receive d Time (Source) Location / / Volume Laterality Blood specimen 12/20/2016 10:48 7 (specimen) AM CDT 10:49 AM CDT Lashawn Patel MD LAB - BLOOD BANK TEST ORDER Performing Organization Address City/State/ZIP Code Phon e Number [address] [address] [facility] Maternal BPP Single (12/19/2016 8:46 AM CDT) Anatomical Region Laterality Modality Ultrasound Specimen (Source) Anatomical Collection Method Collection Time Re ceived Time Location / / Volume Laterality 12/19/2016 8:16 AM CDT Impressions 12/25/2016 9:13 AM EVENTS INTERN IMPRESSION 1) Intrauterine at 28 6/7 week s gestational age. 2) The BPP is reassuring. 3) Oligohydramnios is seen consistent wi román valle PPROM. 4) A complete posterior placenta previa is again seen. Narrative 12/25/2016 9:13 AM EVENTS INTERN BPP Pat. Name: DEANN KING Study Date: 8:16am Pat. 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 METHOD [facility] ANTEPARTUM inpatient exam, Transabd ominal ultrasound examination. [...] twi ce weekly BPP. Continue inpatient management of PPROM. Thank-you for the opportunity to partici hall in the care of this patient. If you have questions regarding today's evaluation or if we can be of further service, please contact the [facility]. anomalies may be present but not detected. Procedure Note Lashawn Patel MD - 12/25/2016Formatt ing of this note might be different from the original. BPP Pat. Name:Elizabeth KING Date:12/19 8:16am Pat. NO: [id number] MD:CHRIST BHAT ON [facility]Yesenia Sen RDMS :1980Age:36 INDICATION Premature Rupture of Membranes ( PPROM) Complete previa. METHOD [facility] ANTEPARTUM inpatient exam, Transabd ominal ultrasound examination. [...] twi ce weekly BPP. Continue inpatient management of PPROM. [...] previa is again seen. Erum Manzanares MD [facility] ORDERABLES ABO/Rh type and screen (12/17/2016 6:54 AM CDT) [facility] Time Signature ABO B 12/17/2016 UNIVERSITY 7:49 AM CDT [facility] RH(D) Pos [facility] Antibody Neg 12/17/2016 UNIVERSITY OF Screen 7:49 AM CDT [facility] Test Valid University 12/17/2016 [facility] [place] [facility] [place] 7:18 AM CDT [facility] BANK w Hospital Specimen 12/20/2016 12/17/[address] [facility] [place] 7:18 AM CDT [facility] Specimen Anatomical Collection Method Collection Time Receive d Time (Source) Location / / Volume Laterality Blood specimen 12/17/2016 6:54 AM 017 6:56 (specimen) CDT AM CDT Nora Mohamud LAB - BLOOD BANK TEST ORDER Performing Organization Address City/State/ZIP Code Phon e Number [facility] [address] [place] [address] [facility] Maternal US OB Limited Single/Multiple (12/16/2016 9:24 [...] 12/17/2016 3:14 PM CDT Limited Pat. Name: BARRYFRANSISCODI Study Date: 8:43am Pat. 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 METHOD [facility] ANTEPARTUM inpatient exam, Transabd ominal ultrasound examination. Espinoza . Number of fetuses: 1. DATING ? Date ?Details ?Gest. age ?JEAN MARIE External assessment ?07/14/ 017 ?GA: 6 w + 2 d [...] previously studied. Amniotic fluid: MVP 2.0 cm. AMRCELLA 4.1 cm. Q1 2.0 cm, Q2 0.9 [...] Pat. Name:Elizabeth KING Date:12/16 8:43am Pat. NO: [id number] :CHRIST BHAT ON [facility]Yesenia Sen RDMS :1980Age:36 INDICATION Premature Rupture of Membranes ( PPROM) Complete previa. METHOD [facility] ANTEPARTUM inpatient exam, Transabd ominal ultrasound examination. [...] stent with known PPROM. Erum Manzanares MD [facility] US ORDERABLES ABO/Rh type and screen (12/14/2016 12:28 AM CDT) [facility] Time Signature ABO B 12/14/2016 [facility] 4:01 AM CDT [facility] RH(D) Pos [facility] Antibody Neg 12/14/2016 UNIVERSITY OF Screen 4:01 AM CDT [facility] Test Valid [facility] 12/14/2016 FLUKER OF [facility] 1:05 AM CDT [facility] BANK w Hospital Specimen 12/17/2016 12/14/2016 UNIVERSITY OF Expires 1:05 AM CDT [facility] Specimen Anatomical Collection Method Collection Time Receive d Time (Source) Location / / Volume Laterality Blood specimen 12/14/2016 12:28 7 (specimen) AM CDT 12:29 AM CDT Nalini Eli MD LAB - BLOOD BANK TEST ORDER Performing Organization Address City/[facility]/ZIP Code Phon e Number [facility] [address] Hepatitis B Surface Antibody (12/13/2016 9:42 PM CDT) P athologist Signature Hepatitis B 0.21 <8.00 12/16/2016 UNIVERSITY OF Surface m[IU]/mL 11:39 AM CDT [facility] Comment: Nonreactive, No antibody detect ed when the value is less than 8.00 m[IU]/mL. Specimen Anatomical Collection Method Collection Time Receive d Time (Source) Location / / Volume Laterality Blood specimen 12/13/2016 9:42 PM 017 9:43 (specimen) CDT PM CDT Erum Manzanares MD LAB - BLOOD ORDERABLES Performing Organization Address City/[facility]/ZIP Code Phon e Number [facility] [address] Hepatitis A Antibody IgG (12/13/2016 9:42 PM CDT) Patholo gist Method Time Signature Hepatitis A Nonreactive NR^Nonrea 12/16/2016 UNIVERSITY OF Antibody IgG ctive 11:39 AM CDT [facility] Comment: This assay cannot be used for t he diagnosis of acute HAV infection. Specimen Anatomical Collection Method Collection Time Receive d Time (Source) Location / / Volume Laterality Blood specimen 12/13/2016 9:42 PM 017 9:43 (specimen) CDT PM CDT Erum Manzanares MD LAB - BLOOD ORDERABLES Performing Organization Address City/[facility]/ZIP Code Phon e Number [facility] [address] Hepatitis B core antibody (12/13/2016 9:42 PM CDT) [facility] Method Time Signature Hepatitis B Nonreactive NR^Nonrea 12/16/2016 [facility] Maricruz ctive 11:39 AM CDT [facility] Specimen Anatomical Collection Method Collection Time Receive d Time (Source) Location / / Volume Laterality Blood specimen 12/13/2016 9:42 PM 017 9:43 (specimen) CDT PM CDT Erum Manzanares MD LAB - BLOOD ORDERABLES Performing Organization Address City/State/ZIP Code Phon e Number [facility] [address] [place] [address] [facility] MR (12/13/2016 2:33 PM CDT) Anatomical Region [...] percreta. 2. Oligohydramnios. ZARINA THOMAS MD Nora Munguia Cade IMG MRI ORDERABLES Maternal US OB Limited [...] DEANN KING Study Date: 7:48am Pat. 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 METHOD [facility] ANTEPARTUM inpatient exam, Transabd ominal and transvaginal [...] [facility] end of the [facility]. Please see [facility] for further documentation regarding plan of care. If you have questions regarding today's evaluation or if we can be of further service, please contact the [facility]. anomalies may be present but not detected. Procedure Note Nora Mohamud MD - 12/12/2016For matting of this note might be different from the original. Cx TV Pat. Name:Elizabeth KING Date:12/12 7:48am Pat. NO: [id number] :CHRIST BHAT ON [facility]Yesenia Sen RDMS :1980Age:36 INDICATION Premature Rupture of Membranes ( PPROM), Complete Previa. METHOD [facility] ANTEPARTUM inpatient exam, Transabd ominal and transvaginal [...] the end of the ultrasound. Please see [facility] for further documentation regarding plan of care. [...] however the placental-myometrial interface appears normal. Nora Munguia Cade IMG MFM US ORDERABLES ABO/Rh type and screen (12/11/2016 9:05 AM CDT) [facility] Method Time Signature ABO B 12/11/2016 UNIVERSITY OF 10:14 AM CDT [facility] RH(D) Pos [facility] Antibody Neg 12/11/2016 UNIVERSITY OF Screen 10:14 AM CDT [facility] Test Valid [facility] 12/11/2016 [facility] OF [place] [facility] [place] 9:21 AM CDT [facility] BANK w Hospital Specimen 12/14/2016 12/11/2016 UNIVERSITY OF [facility] 9:21 AM CDT [facility] Specimen Anatomical Collection Method Collection Time Receive d Time (Source) Location / / Volume Laterality Blood specimen 12/11/2016 9:05 AM 017 9:06 (specimen) CDT AM CDT Nalini Eli MD LAB - BLOOD BANK TEST ORDER Performing Organization Address City/State/ZIP Code Phon e Number [facility] [address] [place] [address] [facility] Echocardiogram Complete (12/10/2016 9:05 AM CDT) Anatomical Region Laterality Modality Echocardiography Specimen (Source) Anatomical Collection Method Collection Time Re ceived Time Location / / Volume Laterality 12/10/2016 8:00 AM CDT Narrative 12/10/2016 9:23 AM CDT [id number]^CADE^NORA^VINCE ?Study ID: [id number] ?[facility] ?[facility] ?[address] ?[place], [place] [address] ? Echocardiogram __ Name: DEANN KING Study Date: 12/10/2016 08:00 AM ? Patient Location: [id number] Gender: Female ?Patient Class: Inpatient : 1980 ? Age: 36 yrs Ordering Provider: NORA MOHAMUD Performed By: Krys Servin RDCS Reading Physician: Brice Lloyd MD Reason For Study: Other, Please Specify in Comments Data: Number of fetuses: This is a espinoza gestation. Due date: 03/07/2017. Gestational age: 27w4d. Deli very at: [place]. Specific Indication: echocar diogram performed for family [...] the left atriu m. There is laminar scznk-fw-[id number] shunting across the foramen ovale. Atrioventricular valves: [...] or coronary artery anomalies. __ Reading Physician: ?Brice Tinsley se, MD 12/10/2016 09:23 AM Procedure Note Brice Lloyd MD - [phone] [id number] [facility] [id number]^CADE^ONRA^VINCE Study ID: [id number] [facility] [address] [place] [address] Echocardiogram __ Name: DEANN KING Study Date: 12/10/2016 08:00 AM Patient Location: [facility] Gender: Female Patient Class: Inpatient : 1980 Age: 36 yrs Ordering Provider: NORA MOHAMUD Performed By: Krys Servin RDCS Reading Physician: Brice Lloyd MD Reason For Study: Other, Please Specify in Comments Data: Number of fetuses: This is a espinoza gestation. Due date: 03/07/2017. Gestational age: 27w4d. Deli very at: [place]. Specific Indication: echocar diogram performed for family [...] the left atriu m. There is laminar srefa-hz-kvgg shunting across the foramen ovale. Atrioventricular valves: [...] coronary artery anomalies. __ Reading Physician: Brice lLoyd MD 12/10/2016 09:23 AM Nora Vince Mohamud PEDS ECHO ORDERABLES Maternal US Comprehensive Single [...] 07/25, off for MARCELLA consistent with PPROM. Narrative 12/08/2016 11:30 AM CDT Comp Follow Up Pat. Name: DEANN KING Study Date: 9:10am Pat. 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 METHOD Transabdominal ultrasound examination, [facility] ANTEPARTUM inpatient exam. View: Suboptimal view: limited by maternal body habitus. Suboptimal view: limited by low amniotic fluid volume. Espinoza . Number of fetuses: 1. DATING ? Date ?Details ?Gest. age ?JEAN MARIE External assessment ?07/14/ 017 ?GA: 6 w + 2 d [...] ? 66.4 ?mm ? 26w 5d ? Flora LEDEZMA ? 87.3 ?mm ? 26w 1d ? Nicolaides HC ?246.7 ?mm ?26w 6d ? Hadlock AC ?225.5 ?mm ?27w 0d ? Hadlock Femur ? 47.1 ?mm ?25w 5d ? Hadlock Humerus ? 42.7 ?mm ? 25w 4d ?Pauly Weight Calculation: EFW ? 943 ? g ? 37% ? Gildardo EFW (lb,oz) ? 2 lb 1 ?oz Calculated by ?Hadlock ([id number]) Head / Face / Neck Biometry: [employer] Cook ?3.9 ?mm ? Amniotic Fluid / FHR: [...] Pat. Name:Elizabeth KING Date:12/08 9:10am Pat. NO: [id number] MD:CHRIST BHAT ON [facility]Yesenia Sen RDMS :1980Age:36 INDICATION Premature Rupture of Membranes ( PPROM) Complete previa. METHOD Transabdominal ultrasound examination, U [facility] ANTEPARTUM inpatient exam. View: Suboptimal [...] 2 lb 1 oz Calculated by Flora ([id number]) Head / Face / Neck Biometry: Dog [employer] Cat [employer] Cook 3.9 mm Amniotic Fluid / FHR: AF [...] weeks. Thank-you for the opportunity to partici hall in the care of this patient. [...] PPROM. 5) Complete placenta previa. 6) BPP 6/, off for MARCELLA consistent with PPROM. Rossana Barker MD IM MF US ORDERABLES Wound Culture Aerobic Bacterial (12/07/2016 6:00 PM CDT) [facility] Method Time Signature Specimen Leg Wound INFECTIOUS [...] Code Phon e Number INFECTIOUS DISEASES [address] [place] [address] DIAGNOSTIC LABORATORY, [facility] INFECTIOUS DISEASE [address] [place] [address], [facility] DIAGNOSTIC LABORATORY Methicillin resistant staph aureus cult (12/07/2016 6:00 PM CDT) [facility] Method Time Signature Specimen Wound [facility] B[facility] Special Specimen 12/07/2016 UNIVERSITY OF Requests collected in 7:06 PM CDT [facility] eSilb [facility] transport BANK (white cap) Culture Micro Canceled, 12/07/2016 UNIVERSITY OF Test credited 8:13 PM CDT [facility] B[facility] Culture Micro Test 12/07/2016 UNIVERSITY OF reordered as 8:13 PM CDT [facility] BANK Specimen Anatomical Collection Method Collection Time Receive d Time (Source) Location / / Volume Laterality Specimen from 12/07/2016 6:00 PM 12/08/19 17 6:21 wound (specimen) CDT PM CDT Rossana Barker MD LAB - MICRO GENERAL ORDERABL ES Performing Organization Address City/State/ZIP Code Phon e Number [facility] [address] [place] [address] [place] TSH with free T4 reflex (12/07/2016 3:43 PM CDT) P athologist Signature TSH 3.09 0.40 - 4.00 12/09/2016 [facility] mU/L 5:39 PM CDT [facility] Specimen Anatomical Collection Method Collection Time Receive d Time (Source) Location / / Volume Laterality 12/07/2016 3:43 PM 7 3:44 CDT PM CDT Nora Leyva MD LAB - BLOOD ORDERABLES Performing Organization Address City/State/ZIP Code Phon e Number [facility] [address] [place] [address] [place] [facility] Rubella Antibody IgG Quantitative (12/07/2016 3:43 PM CDT) Analysis Performed At Patho logist Time Signature Rubella Antibody 7 IU/mL 12/09/2016 UNIVERSITY O F IgG Quantitative 11:02 AM CDT [facility] Comment: Negative Reference Range: ??Unvaccinated Negative 0-7 IU/mL Vaccinated or previous exposure Positive 10 IU/ml or greater Specimen Anatomical Collection Method Collection Time Receive d Time (Source) Location / / Volume Laterality 12/07/2016 3:43 PM 7 3:44 CDT PM CDT Nora Leyva MD LAB - BLOOD ORDERABLES Performing Organization Address City/State/ZIP Code Phon e Number [facility] [address] [place] [address] [facility] (ABNORMAL) Hepatitis C RNA quantitative (12/07/2016 3:43 PM CDT) [facility] Method Time Signature HCV RNA Quant [id number],[id number] HCVND^HCV 12/09/2016 UNIVERSITY OF IU/ml (A) RNA Not 12:19 PM CDT [facility] EAST [IU]/mL BANK Comment: The LEONARDO AmpliPrep/LEONARDO [...] (H) <1.2 Log IU/mL 12/09/2016 12:19 PM [facility] Qt CDT [facility] Specimen Anatomical Collection Method Collection Time Receive d Time (Source) Location / / Volume Laterality Blood specimen 12/07/2016 3:43 PM 017 3:44 (specimen) CDT PM CDT Nora Leyva MD LAB - BLOOD ORDERABLES Performing Organization Address City/State/ZIP Code Phon e Number [facility] [address] [place] [address] [place] hemoglobin stain Kleihauer (12/07/2016 3:43 PM CDT) Patholo gist Method Time Signature Kleihauer-Bet No cells seen 12/07/2016 UNIVE RSITY OF ke Rhogam not required 7:22 PM CDT [place] [facility] Patient Rh positive [facility] T Test performed at [place] BANK Specimen Anatomical Collection Method Collection Time Receive d Time (Source) Location / / Volume Laterality Blood specimen 12/07/2016 3:43 PM 017 3:45 (specimen) CDT PM CDT Nora Leyva MD LAB - BLOOD BANK TEST ORDER Performing Organization Address City/[facility]/ZIP Code Phon e Number [address] [address] [facility] Fibrinogen activity (12/07/2016 3:43 PM CDT) P athologist Signature Fibrinogen 362 200 - 420 12/07/2016 UNIVERSITY OF mg/dL 5:44 PM CDT [facility] Specimen Anatomical Collection Method Collection Time Receive d Time (Source) Location / / Volume Laterality Blood specimen 12/07/2016 3:43 PM 017 3:44 (specimen) CDT PM CDT Nora Leyva MD LAB - BLOOD ORDERABLES Performing Organization Address City/[facility]/ZIP Code Phon e Number [address] [address] [facility] Partial thromboplastin time (12/07/2016 3:43 PM CDT) P athologist Signature PTT 27 22 - 37 sec 12/07/2016 [facility] 5:44 PM CDT [facility] Specimen Anatomical Collection Method Collection Time Receive d Time (Source) Location / / Volume Laterality Blood specimen 12/07/2016 3:43 PM 017 3:44 (specimen) CDT PM CDT Nora Leyva MD LAB - BLOOD ORDERABLES Performing Organization Address City/State/ZIP Code Phon e Number [address] [place] [address] [facility] INR (12/07/2016 3:43 PM CDT) athologist Signature INR 1.06 0.86 - 1.14 12/07/2016 [facility] 5:44 PM [facility] Specimen Anatomical Collection Method Collection Time Receive d Time (Source) Location / / Volume Laterality Blood specimen 12/07/2016 3:43 PM 017 3:44 (specimen) CDT PM CDT Nora Leyva MD LAB - BLOOD ORDERABLES Performing Organization Address City/State/ZIP Code Phon e Number [facility] [address] [place] [address] [facility] (ABNORMAL) Comprehensive metabolic panel (12/07/2016 3:43 PM CDT) athologist Signature Sodium 141 133 - 144 12/07/2016 UNIVERSITY OF mmol/L 4:08 PM T [facility] Potassium 3.4 3.4 - 5.3 12/07/2016 UNIVERSITY OF mmol/L 4:08 PM [facility] Chloride 108 94 - 109 12/07/2016 UNIVERSITY OF mmol/L 4:08 PM [facility] Carbon Dioxide 21 20 - 32 12/07/2016 UNIVERSITY OF mmol/L 4:08 PM [facility] Anion Gap 12 3 - 14 12/07/2016 UNIVERSITY OF mmol/L 4:08 PM T [facility] Glucose 88 70 - 99 12/07/2016 UNIVERSITY OF mg/dL 4:08 PM T [facility] Urea Nitrogen 6 (L) 7 - 30 12/07/2016 UNIVERSITY OF mg/dL 4:08 PM [facility] Creatinine 0.55 0.52 - 12/07/2016 UNIVERSITY OF 1.04 mg/dL 4:08 PM [facility] GFR Estimate >90 >60 12/07/2016 UN[facility]ERSITY OF mL/min/1.7 4:[address] Comment: Non GFR Calc GFR Estimate If >90 >60 mL/min/1.7m2 12/07/2016 4:08 P M [facility] Black [facility] Comment: GFR Calc Calcium 8.1 (L) 8.5 - 10.1 12/07/2016 4:08 PM [facility] mg/dL [facility] Bilirubin Total 0.4 0.2 - 1.3 12/07/2016 4:08 PM UNIVE [facility]ITY OF [place] mg/dL [facility] Albumin 2.5 (L) 3.4 - 5.0 g/dL 12/07/2016 4:08 PM [facility] Protein Total 6.1 (L) 6.8 - 8.8 g/dL 12/07/2016 4:08 PM [facility] Alkaline Phosphatase 69 40 - 150 U/L 12/07/2016 4:08 PM [facility] ALT 26 0 - 50 U/L 12/07/2016 4:08 PM [facility] AST 21 0 - 45 U/L 12/07/2016 4:08 PM [facility] Specimen Anatomical Collection Method Collection Time Receive d Time (Source) Location / / Volume Laterality Blood specimen 12/07/2016 3:43 PM 017 3:44 (specimen) CDT PM CDT Nora Leyva MD LAB - BLOOD ORDERABLES Performing Organization Address City/[facility] Code Phon e Number [facility] [address] [place] [address] [facility] Urine Culture Aerobic Bacterial (12/07/2016 2:55 PM CDT) Component Value Ref Test Analysis Performed At [facility] Range Method Time Signature Specimen Unspecified Urine INFECTIOUS Description DISEASE DIAGNOSTIC LABORATORY Special Specimen received 12/07/[address] [facility] in preservative 7:19 PM CDT [facility] Culture Micro >100,000 colonies/mL 12/08/2016 INFE CTIOUS [...] Code Phon e Number INFECTIOUS DISEASES [address] [place] [address] DIAGNOSTIC LABORATORY, [facility] INFECTIOUS DISEASE [address] [place] [address], [facility] DIAGNOSTIC LABORATORY [address] [address], [facility] (ABNORMAL) UA reflex to Microscopic and Culture (12/07/2016 2:55 PM CDT) [facility] gist Method Time Signature Color Urine Yellow 12/07/2016 [facility]ITY OF 3:37 PM T [facility] Appearance Urine Clear 12/07/2016 [facility]ITY O F 3:37 PM T [facility] Glucose Urine Negative NEG^Negat 12/07/2016 UN[facility]ITY OF paula mg/dL 3:37 PM T [facility] Bilirubin Urine Negative NEG^Negat 12/07/2016 [facility] OF paula 3:37 PM T [facility] Ketones Urine Negative NEG^Negat 12/07/2016 [facility] OF paula mg/dL 3:37 PM T [facility] Specific [place] 1.015 1.003 - 12/07/2016 [facility] Urine 1.035 3:37 PM T [facility] Blood Urine Negative NEG^Negat 12/07/2016 [facility] OF paula 3:37 PM T [facility] pH Urine 6.5 5.0 - 7.0 12/07/2016 [facility] OF pH 3:37 PM T [facility] Protein Albumin 10 (A) NEG^Negat 12/07/2016 [facility] OF Urine paula mg/dL 3:37 PM T [facility] Urobilinogen Normal 0.0 - 2.0 12/07/2016 [facility] OF mg/dL mg/dL 3:37 PM T [facility] Nitrite Urine Negative NEG^Negat 12/07/2016 [facility] OF paula 3:37 PM T [facility] Leukocyte Moderate (A) NEG^Negat 12/07/2016 [facility] OF Esterase Urine paula 3:37 PM T [facility] Source Midstream 12/07/2016 [facility] OF Urine 3:23 PM T [facility] RBC Urine 1 0 - 2 12/07/2016 [facility] /HPF 3:49 PM T [facility] WBC Urine 7 (H) 0 - 2 12/07/2016 [facility] /HPF 3:49 PM CDT [facility] Bacteria Urine Few (A) NEG^Negat 12/07/2016 [facility] paula /HPF 3:49 PM CDT [facility] Squamous 1 0 - 1 12/07/2016 [facility] Epithelial /HPF /HPF 3:49 PM CDT [facility] Urine [facility] Mucous Urine Present (A) NEG^Negat 12/07/2016 [facility] paula /LPF 3:49 PM T [facility] Specimen (Source) Anatomical Collection Method Collection Time Re ceived Time Location / / Volume Laterality Examination of URINE SPECIMEN 12/07/2016 2:55 12/08/19 17 3:22 midstream urine OBTAINED BY CLEAN PM CDT PM CDT specimen CATCH PROCEDURE / (procedure) Unknown Nora Leyva MD LAB - URINE ORDERABLES Performing Organization Address City/State/ZIP Code Phon e Number U OF [facility] [address] [place] [address] [facility] U OF M [facility] Drug abuse scrn 7 UR (/) (RH, SH, UR) (12/07/2016 2:55 PM CDT) [facility] Method Time Signature Amphetamine Qual Negative NEG^Negat 12/07/2016 [facility] O F Urine paula 3:48 PM [facility] Comment: Cutoff for a negative amphetami ne is 500 ng/mL or less. Cannabinoids Qual Negative NEG^Negative 12/07/2016 3:48 PM [facility] Urine [facility] Comment: Cutoff for a negative cannabino id is 50 ng/mL or less. Cocaine Qual Urine Negative NEG^Negative 12/07/2016 3:48 PM [facility] Comment: Cutoff for a negative cocaine i s 300 ng/mL or less. Opiates Qualitative Negative NEG^Negative 12/07/2016 3:48 P M [facility] Comment: Cutoff for a negative opiate is 300 ng/mL or less. Pcp Qual Urine Negative NEG^Negative 12/07/2016 3:48 PM T [facility] Comment: Cutoff for a negative PCP is 25 ng/mL or less. Specimen Anatomical Collection Method Collection Time Receive d Time (Source) Location / / Volume Laterality Urine specimen URINE SPECIMEN 12/07/2016 2:55 PM 12/07 3:22 (specimen) OBTAINED BY CLEAN CDT PM CDT CATCH PROCEDURE / Unknown Nora Leyva MD LAB - URINE ORDERABLES Performing Organization Address [facility]/ZIP [facility] Phon e Number [place] [id number] [place] [address] [facility] Chlamydia trachomatis PCR (12/07/2016 2:54 PM CDT) Patholo gist Method Time Signature Specimen Vagina 12/07/2016 [facility]ERSITY OF Description 3:13 PM CDT [facility] Chlamydia Negative NEG^Negat 12/08/2016 [facility] OF Trachomatis PCR paula 1:55 PM CDT [facility] Comment: Negative for C. trachomatis rRNA by prescott scription mediated amplification. A negative result by construction framer media kris amplification does not preclude the [...] MICRO GENERAL ORDERABL ES Performing Organization Address City/[facility] Code Phon e Number [facility] [address] [place] [address] [address] [facility] Neisseria gonorrhoeae PCR (12/07/2016 2:54 PM CDT) Analysis Performed At Patho logist Time Signature Specimen Vagina 12/07/2016 UN[facility]ERSITY OF Descrip 3:13 PM CDT [facility] N Gonorrhea Negative NEG^Negati 12/08/2016 UN[facility]ITY OF PCR ve 1:55 PM CDT [facility] Comment: Negative for N. gonorrhoeae rRNA by prescott scription mediated amplification. A negative result by construction framer media kris amplification does not preclude the [...] Organization Address City/State/ZIP Code Phon e Number [facility] [address] [place] [id number] [place] [address] Wet prep (12/07/2016 2:54 PM CDT) Component Value Ref Test Analysis Performed At [facility] [employer] Range Method Time Signature Specimen Vagina [facility] Wet Prep No Trichomonas 12/07/2016 [facility] OF seen 3:34 PM CDT [facility] Wet Prep No yeast seen 12/07/2016 [facility] OF 3:34 PM CDT [facility] Wet Prep Moderate 12/07/2016 UN[facility]ITY OF PMNs seen 3:34 PM CDT [facility] Wet Prep No clue cells 12/07/2016 [facility] OF seen 3:34 PM CDT [facility] Specimen Anatomical Collection Method Collection Time Receive d Time (Source) Location / / Volume Laterality Specimen from 12/07/2016 2:54 PM 12/08/19 17 3:10 vagina CDT PM CDT (specimen) Nora Leyva MD LAB - MICRO GENERAL ORDERABL ES Performing Organization Address City/[facility] Code Phon e Number [address] [address] [facility] (ABNORMAL) Group B strep PCR (12/07/2016 2:54 PM CDT) [facility] [employer] Method Time Signature Group B Strep Vaginal 12/07/2016 [facility] OF PCR Spec Valdemar Rectal 2:58 PM CDT [facility] Group B Strep Positive (A) NEG^Negat 12/08/2016 [facility]ITY O F PCR paula 1:27 PM CDT [facility] Comment: Positive: GBS DNA detected, presumed pos itive for GBS. Assay performed on incubated broth cultu re of specimen using [employer] real-time PCR. Specimen Anatomical Collection Method Collection Time Receive d Time (Source) Location / / Volume Laterality Vaginal Rectal 12/07/2016 2:54 PM 017 3:14 CDT PM CDT Nora Leyva MD LAB - MICRO GENERAL ORDERABL ES Performing Organization Address City/[facility]/ZIP Code Phon e Number [facility] [address] [place], [place] [id number] [place] [address] ABO/Rh type and screen (12/07/2016 2:41 PM CDT) [facility] Method Time Signature ABO B 12/07/2016 [facility] OF 6:08 PM CDT [facility] RH(D) Pos [facility] Antibody Neg 12/07/2016 [facility] OF Screen 6:08 PM CDT [facility] Test Valid [facility] 12/07/2016 [facility] OF [facility] 5:31 PM CDT [facility] [facility] Specimen 12/10/2016 12/07/2016 [facility]ITY OF Expires 5:31 PM CDT [facility] Specimen Anatomical Collection Method Collection Time Receive d Time (Source) Location / / Volume Laterality Blood specimen 12/07/2016 2:41 PM 017 2:44 (specimen) CDT PM CDT Rossana Barker MD LAB - BLOOD BANK TEST ORDER Performing Organization Address City/[facility] Code Phon e Number [address] (ABNORMAL) CBC with platelets (12/07/2016 2:41 PM CDT) [facility] Method Time Signature WBC 8.4 4.0 - 11.0 12/07/2016 [facility]ITY OF 10e9/L 2:47 PM CDT [facility] RBC Count 3.10 (L) 3.8 - 5.2 12/07/2016 [facility] OF 10e12/L 2:47 PM CDT [facility] Hemoglobin 9.4 (L) 11.7 - 12/07/2016 [facility] OF 15.7 g/dL 2:47 PM CDT [facility] Hematocrit 28.2 (L) 35.0 - 12/07/2016 [facility] OF 47.0 % 2:47 PM CDT [facility] MCV 91 78 - 100 12/07/2016 [facility] OF fl 2:47 PM CDT [facility] MCH 30.3 26.5 - 12/07/2016 [facility] OF 33.0 pg 2:47 PM CDT [facility] MCHC 33.3 31.5 - 12/07/2016 [facility] OF 36.5 g/dL 2:47 PM CDT [facility] RDW 17.1 (H) 10.0 - 12/07/2016 [facility] OF 15.0 % 2:47 PM CDT [facility] Platelet Count 185 150 - 450 12/07/2016 [facility] OF 10e9/L 2:47 PM CDT [facility] Specimen Anatomical Collection Method Collection Time Receive d Time (Source) Location / / Volume Laterality Blood specimen 12/07/2016 2:41 PM 017 2:42 (specimen) CDT PM CDT Rossana Barker MD LAB - BLOOD ORDERABLES Performing Organization Address City/[facility] Phon e Number [facility] [address] [place] [address] [facility] (ABNORMAL) Referral sensitivity (12/07/2016 1:27 PM CDT) Component Value Ref Test Analysis Performed At [facility] Range Method Time Signature Specimen Vaginal Rectal [...] MICRO GENERAL ORDERABL ES Performing Organization Address City/[facility] Phon e Number INFECTIOUS DISEASES [address] [place] [address] DIAGNOSTIC LABORATORY, [facility] INFECTIOUS DISEASE [address] [place] [address], [facility] DIAGNOSTIC LABORATORY documented in this encounter Visit Diagnoses Not on filedocumented in this encounter Administered Medications Inactive Administered Medications - up to 3 most recent administrations Medication Order MAR Action Action Date Dose Rate Site acetaminophen (TYLENOL) tablet Given 12/27/2016 12:40 PM EVENTS INTERN 975 mg 975 mg 975 mg, Oral, EVERY 8 HOURS, First dose on Fri12/25/16 at 0000, For 3 days, Do not use if patient has an active opioid/acetaminophen analgesic order for pain Maximum acetaminophen dose from all sources = 75 mg/kg/day not to exceed 4 grams/day., Post-procedure Given 12/27/2016 2:07 AM [facility]ENTS INTERN 975 mg Given 12/26/2016 6:00 PM [facility]N 975 mg bacitracin ointment Given 12/27/2016 8:12 AM [facility]N Topical, 3 TIMES DAILY, First dose on Fri12/22/16 at 1400, Apply to areas of picking. Given 12/25/2016 1:01 PM EVENTS INTERN Given 12/24/2016 7:56 AM [facility] INTERN benzocaine (ORAJEL MAXIMUM STRENGTH) 20 % gel Given 12/24/2016 9:19 AM EVENTS INTERN Mouth/Throat, 4 TIMES DAILY PRN, moderate pain (4-6), Starting on Fri12/23/16 at 0935, Apply to side of tongue near sore bisacodyl (DULCOLAX) Suppository 10 mg Given 12/25/2016 9:53 PM EVENTS INTERN 10 mg 10 mg, Rectal, DAILY PRN, constipation, Starting on Fri12/25/16 at 2148, Start POD 2, Post-procedure buprenorphine (SUBUTEX) sublingual table t 2 mg Given 12/27/2016 8:10 AM EVENTS INTERN 2 mg 2 mg, Sublingual, 5 TIMES DAILY, First dose on Fri12/07/16 at 1545 Given 12/27/2016 4:06 AM EVENTS INTERN 2 mg Given 12/26/2016 10:38 PM EVENTS INTERN 2 mg buPROPion (WELLBUTRIN SR) 12 hr tablet 1 50 mg Given 12/27/2016 8:10 AM EVENTS INTERN 150 mg 150 mg, Oral, DAILY, First dose on Fri12/17/16 at 0800, DO NOT CRUSH. Given 12/26/2016 8:23 AM EVENTS INTERN 150 mg Given 12/25/2016 7:52 AM EVENTS INTERN 150 mg diphenhydrAMINE (BENADRYL) capsule 25 mg Given 12/25/2016 7:23 PM EVENTS INTERN 25 mg 25 mg, Oral, EVERY 6 [...] emollient (VANICREAM) cream Given 12/24/2016 9:19 AM EVENTS INTERN Topical, EVERY 2 HOURS PRN, other, area of dry skin, Starting on Fri12/15/16 at 1239, Apply to areas of dry skin hydrocortisone (CORTAID) 1 % cream Given 12/27/2016 8:12 AM EVENTS INTERN Topical, 2 TIMES DAILY, First dose on Fri12/17/16 at 2115, Apply to upper arms and left abdomen Given 12/25/2016 8:09 AM EVENTS INTERN Given 12/23/2016 8:48 AM EVENTS INTERN Left Arm ibuprofen (ADVIL/MOTRIN) tablet 600 mg Given 12/27/2016 9:24 AM EVENTS INTERN 600 mg 600 mg, Oral, EVERY 6 HOURS RT, First dose (after last modification) on Fri12/26/16 at 0800, Ibuprofen to start after toradol finishes Given 12/27/2016 3:07 AM EVENTS INTERN 600 mg Given 12/26/2016 9:01 PM EVENTS INTERN 600 mg levothyroxine (SYNTHROID/LEVOTHROID) tablet Given 12/18 8:10 AM EVENTS INTERN 150 mcg 150 mcg 150 mcg, Oral, DAILY, First dose (after last modification) on Fri12/11/16 at 0800, Separate oral administration of iron- or calcium-containing products and levothyroxine by at least 4 hours. Given 12/26/2016 8:24 AM EVENTS INTERN 150 mcg Given 12/25/2016 7:52 AM EVENTS INTERN 150 mcg magic mouthwash suspension (diphenhydramine, lidocaine , aluminum-magnesium & simethicone) 10 mL, Swish & Swallow, EVERY 6 HOURS SC N, mouth sores, Starting on Fri12/24/16 at 1014 nicotine polacrilex (NICORETTE) gum 2 mg 2 mg, Buccal, EVERY 1 HOUR PRN, smoking cessation, Sta rting on 12/08/16 at 1557, Gum should be chewed slowly until it tingles, then placed between cheek and gum: when tingle gone, repeat process until tingle kirk e (about 30 minutes). oxyCODONE IR (ROXICODONE) tablet 15-20 m g Given 12/27/2016 12:40 PM EVENTS INTERN 20 mg 15-20 mg, Oral, EVERY 3 HOURS PRN, moderate to severe pain, Starting on Fri12/25/16 at 1645, Patient is an opioid tolerant patient and will require higher narcotic doses due to buprenorphine. Given 12/27/2016 9:24 AM EVENTS INTERN 20 mg Given 12/27/2016 6:21 AM EVENTS INTERN 20 mg potassium chloride (KLOR-CON) Packet 20- 40 mEq 20-40 mEq, Oral or Feeding Tube, EVERY 2 HOURS PRN, po tassium supplementation, Starting on 12/25/16 at 0356, Use if unable to tole [...] 2.5, See IV order. DO NOT CRUSH senna-docusate (SENOKOT-S;PERICOLACE) Given 12/27/2016 8:[address] 2 tablets 8.6-50 MG per tablet 1-2 tablet 1-2 tablet, Oral, 2 TIMES DAILY, First dose on Fri12/25/16 at 0800, Start with 1 tablet PO BID, If no bowel movement in 24 hours, increase to 2 tablets po BID. Hold for loose stools. Preferred agent for constipation related to opioids., Post-procedure Given 12/26/2016 9:01 PM EVENTS INTERN 2 tablets Given 12/26/2016 8:23 AM EVENTS INTERN 2 tablets simethicone (MYLICON) chewable tablet 80 mg Given 12/26/2016 1:54 PM EVENTS INTERN 80 mg 80 mg, Oral, 4 TIMES DAILY PRN, other, gas, Starting on Fri12/25/16 at 0352, Chew., Post-procedure Given 12/26/2016 6:36 AM EVENTS INTERN 80 mg Given 12/26/2016 12:31 AM EVENTS INTERN 80 mg sodium chloride (OCEAN) 0.65 % nasal spray Given 12/08 10:57 AM CDT 1 spray 1 spray 1 spray, Both Nostrils, EVERY 1 HOUR PRN, congestion, Starting on Fri12/08/16 at 1027 sodium chloride (PF) 0.9% PF flush 3 mL Given 12/26/2016 6:58 AM EVENTS INTERN 3 mLs 3 mL, Intracatheter, EVERY 1 HOUR PRN, line flush, for peripheral IV flush post IV meds, Starting on Fri12/25/16 at 0352, Post-procedure Given 12/26/2016 5:07 AM EVENTS INTERN 3 mLs Given 12/26/2016 1:52 AM EVENTS INTERN 3 mLs venlafaxine (EFFEXOR-ER) 24 hr tablet 15 0 mg Given 12/27/2016 8:10 AM EVENTS INTERN 150 mg 150 mg, Oral, DAILY WITH BREAKFAST, First dose (after last modification) on Fri12/09/16 at 0800, DO NOT CRUSH. Given 12/26/2016 8:23 AM EVENTS INTERN 150 mg Given 12/25/2016 11:12 AM EVENTS INTERN 150 mg documented in this encounter Active and Recently Administered Medications Times are shown in EVENTS INTERN. Scheduled Medication Order 12/25/2016 12/26/2016 12/27/2016 acetaminophen (TYLENOL) tablet 975 mg 0218 (Auto Hold - Provider: Orders Generic Provider - Reason: Transfer to a procedural area)0247 (Given - Provider: Lisa Rubio RN)0306 (Unhold - Provider: Orders Generic Provider)0751 (Given - P rovider: Fransisca Gates RN) 0822 (Given - Provider: Hyacinth Wolf RN)1800 (Given - Provider: Gudelia Clemons RN) 0207 (Given - Provider: Lucia Cotton RN)1240 (Given - Provider: Brenna Verduzco, GENARO) 975 mg, Oral, EVERY 8 HOURS, First dose on Fri12/25/16 at 0000, For 3 days, Do not use if patient has an active opioid/acetaminophen analgesic order for pain Maximum acetaminophen dose from all sources 1546 (Given - Provider: Maria Antonia Hidalgo, GENARO)2335 (Given - Provider: Yessenia Julian, GENARO) = 75 mg/kg/day not to exceed 4 [...] Topical, 3 TIMES DAILY, First dose on Sarmiento n 12/22/16 at 1400, Apply to areas of picking. 0800 (Not Given - Provider: Maria Antonia dobson RN - Reason: Other)1301 (Given - Provider: Maria Antonia Hidalgo, GENARO)2042 (Not Given - Provider: Yessenia Julian RN [...] Elmore RN) 0421 (Given - Provider: Lucia Cotton RN)0911 (Given - Provider: Hyacinth Wolf RN)1351 (Given - Provider: Hyacinth Wolf RN)1800 (Given - Provider: Gudelia Clemons RN)2238 (Given - Provider: Gudelia Clemons RN) 0406 (Given - Provider: Lucia Cotton RN)0810 (Given - Provider: Brenna Verduzco RN)1300 (Canceled Entry - Provider: Orders Generic Provider - Comment: Automatically canceled at discontinue of medication order) 2 mg, Sublingual, 5 TIMES DAILY, First dose on Sat at 1545 0751 (Given - Provider: Fransisca Gates RN)1231 (Given - Provider: Maria Antonia Hidalgo, GENARO)1642 (Given - Provider: Maria Antonia Hidalgo, GENARO)2302 (Given - Provider: Yessenia Julian RN) buPROPion (WELLBUTRIN SR) 12 hr tablet 150 mg 0218 (Au to Hold - Provider: Orders Generic Provider - Reason: Transfer to a procedural area)0306 (Unhold - Provider: Orders Generic Provider)0752 (Given - Provider: Fransisca Thapa, GENARO) 0823 (Given - Provider: Hyacinth Wolf, GENARO) 0810 (Given - Provider: Brenna Verduzco, RN) 150 mg, Oral, DAILY, First dose on Fri12/17/16 at 0800, DO NOT CRUSH. clindamycin (CLEOCIN) infusion 900 mg () 0505 ( Canceled Entry - Provider: Khloe Elmoer RN)0619 (New Bag - Provider: Khloe Elmore, RN)1332 (New Bag - Provider: Maria Antonia Hidalgo, GENARO) 900 mg, Intravenous, EVERY 8 HOURS, Firs t dose on Fri12/25/16 at 0430, For 24 hours, Indications: Perioperative Pharmacoprophylaxis gentamicin (GARAMYCIN) 120 mg in NaCl 0. 9 % 100 mL intermittent infusion (COMPLETED) 0501 (New Bag - Provider: Khloe Elmore, GENARO)1218 (New Bag - Provider: Maria Antonia Hidalgo, GENARO)203 (New Bag - Provider: Yessenia Julian RN) 120 mg, Intravenous, EVERY 8 HOURS, Firs t dose on Fri12/25/16 at 0500, For 24 hours, Indications: Perioperative Pharmacoprophylaxis hydrocortisone (CORTAID) 1 % cream 0218 (Auto Hold - P rovider: Orders Generic Provider - Reason: Transfer to a procedural area)0306 (Unhold - Provider: Orders Generic Provider)0809 (Given - Provider: Fransisca Gates, GENARO) 1327 (Not Given - Provider: Hyacinth Wolf RN - Reason: Patient/family refused)2239 (Not Given - Provider: Gudelia Clemons RN - Reason: Patient/family refused) 0812 (Given - Provider: Brenna Verduzco, GENARO) Topical, 2 TIMES DAILY, First dose on 12/17/16 at 2115, Apply to upper arms and left abdomen 2041 (Not Given - Provider: Yessenia alcala RN - Reason: Patient/family refused - Comment: wants to wait until later) HYDROmorphone (DILAUDID) Loading Dose ad ministered from SEMICONDUCTOR WAFERS ETCH OPERATOR 0.2-0.3 mg (COMPLETED) 0336 (Given - Provider: Khloe Elmore RN) 0.2-0.3 mg, Intravenous, SEMICONDUCTOR WAFERS ETCH OPERATOR LOADING DOS E, Fri12/25/16 at 0000, For 1 dose, LOADING DOSE (bolus) with start of SEMICONDUCTOR WAFERS ETCH OPERATOR. DO NOT GIVE IF A LOADING BOLUS DOSE HAS ALREADY BEEN GIVEN. (If loading dose not given from SEMICONDUCTOR WAFERS ETCH OPERATOR, bar code scan must be overridden to chart dose)., Pos t-procedure HYDROmorphone (DILAUDID) SEMICONDUCTOR WAFERS ETCH OPERATOR 1 mg/mL (CANCELED) 0100 ( New Syringe/Cartridge - Provider: Lisa Rubio RN)0218 (Auto Hold - Provider: Orders Generic Provider - Reason: Transfer to a procedural area)0253 (Unhold - Provider: Marleny Kang MD) SEMICONDUCTOR WAFERS ETCH OPERATOR dose (mg): 0.2, Max SEMICONDUCTOR WAFERS ETCH OPERATOR dose (mg): 0 .3, Lockout Interval (min): 10 minutes, SEMICONDUCTOR WAFERS ETCH OPERATOR Continuous Rate (mg/hr): CONTINUOUS RATE IS NOT RECOMMENDED FOR OPIOID NAIVE PATIENTS, Hour Limit (mg): 1.8, First dos e on Fri12/25/16 at 0000, Do NOT give an y additional opioids while on SEMICONDUCTOR WAFERS ETCH OPERATOR. When transitioning from SEMICONDUCTOR WAFERS ETCH OPERATOR to oral opioids MAY give first oral opioid dose 30 minutes PRIOR to discontinuation of SEMICONDUCTOR WAFERS ETCH OPERATOR., Intravenous, Post-procedure HYDROmorphone (DILAUDID) SEMICONDUCTOR WAFERS ETCH OPERATOR 1 mg/mL (CANCELED) 0454 ( Rate/Dose Verify - Provider: Khloe Elmore RN)0508 (Canceled Entry - Provider: Khloe Elmore RN)0624 (Shift Total - Provider: Khloe Elmore RN) SEMICONDUCTOR WAFERS ETCH OPERATOR dose (mg): 0.2, Max SEMICONDUCTOR WAFERS ETCH OPERATOR dose (mg): 0 .3, Lockout Interval (min): 10 minutes, SEMICONDUCTOR WAFERS ETCH OPERATOR Continuous Rate (mg/hr): CONTINUOUS RATE IS NOT RECOMMENDED FOR OPIOID NAIVE PATIENTS, Hour Limit (mg): 2, First dose on Fri12/25/16 at 0430, Do NOT give any additional opioids while on SEMICONDUCTOR WAFERS ETCH OPERATOR. When transitioning from SEMICONDUCTOR WAFERS ETCH OPERATOR to oral opioids MAY give first oral opioid dose 30 minutes PRIOR to discontinuation of SEMICONDUCTOR WAFERS ETCH OPERATOR., Intravenous, Post-procedure HYDROmorphone (DILAUDID) SEMICONDUCTOR WAFERS ETCH OPERATOR 1 mg/mL (CANCELED) 0845 ( Canceled Entry - Provider: Fransisca Gates RN)0901 (Rate/Dose Verify - Provider: Fransisca Gates RN)1350 (Stopped - Provider: Maria Antonia Hidalgo RN) SEMICONDUCTOR WAFERS ETCH OPERATOR dose (mg): 0.3, Max SEMICONDUCTOR WAFERS ETCH OPERATOR dose (mg): 0 .5, Lockout Interval (min): 10 minutes, SEMICONDUCTOR WAFERS ETCH OPERATOR Continuous Rate (mg/hr): 0.3, MAX Continuous Rate [...] - Reason: Contraindicated)0924 (Given - Provider: Brenna Verduzco, GENARO) 600 mg, Oral, EVERY 6 HOURS, First [...] (Given - Provider: Brenna Verduzco RN) 150 mcg, Oral, DAILY, First dose on Fri12/11/16 at 0800, Separate oral administration of iron- or calcium-containing products and levothyroxine by at least 4 hours. senna-docusate (SENOKOT-S;PERICOLACE) 8.6-50 MG per ta blet 1-2 tablet 0805 (Not Given - Provider: Fransisca Gates RN - Reason: Patient/family refused)2042 (Given - Provider: Yessenia Julian RN) 0823 (Given - Provider: Hyacinth Wolf RN)2100 (Given - Provider: Gudelia Clemons RN) 0810 (Given - Provider: Brenna Verduzco, RN) 1-2 tablet, Oral, 2 TIMES DAILY, First [...] IV Infusing)1212 (Given - Provider: Maria Antonia Hidalgo, GENARO)2033 (Given - Provider: Yessenia Julian RN) 022 (Given - Provider: Lucia Cotton RN)0635 (Not Given - Provider: Lucia Cotton RN [...] Provider)1112 (Given - Provider: Maria Antonia Hidalgo, GENARO) 0823 (Given - Provider: Hyacinth Wolf RN) 0810 (Given - Provider: Brenna Verduzco, GENARO) 150 mg, Oral, DAILY WITH BREAKFAST, Firs t dose on Fri12/09/16 at 0800, DO NOT CRUSH. Continuous Medication Order 12/25/2016 12/26/2016 12/27/2016 lactated ringers infusion (CANCELED) 0506 (Rate/Dose C hange - Provider: Khloe Elmore RN)0618 (New Bag - Provider: Khloe Elmore RN)1740 (New Bag - Provider: Maria Antonia Hidalgo, [...] near sore bisacodyl (DULCOLAX) Suppository 10 mg 2152 (Given - P rovider: Yessenia Julian RN) [...] 1) 1922 (Given - Provider: Maria Antonia Hidalgo RN) 25 mg, Oral, EVERY 6 HOURS PRN, itching, Starting Fri12/25/16 at 0352, Post-procedure diphenhydrAMINE (BENADRYL) injection 25 mg(Linked Grou p 1) 1922 (See Alternative - Provider: Maria Antonia Hidalgo RN) 25 mg, Intravenous, EVERY 6 HOURS PRN, i tching, Give IV only if unable to take PO, Administer over 1-2 Minutes, Starting 12/25/16 at 0352, For ordered doses up to [...] mcg (CANCELED) 0015 (Given - Provider: Lisa Rubio RN)0026 (Given - Provider: Lisa Rubio, GENARO)0048 (Given - Provider: Lisa Rubio, GENARO)0103 (Given - Provider: Lisa Rubio RN) 50 mcg, Intravenous, EVERY 2 MIN PRN, [...] RN) 0.2-0.3 mg, Intravenous, EVERY 1 HOUR SC N, Starting Zoe 12/26/16 at 0407, Until Zoe 12/26/16 at 0911, moderate to severe pain, Give IV Push undiluted up to 4 mg. Each 2mg over 2-5 minutes. HYDROmorphone (PF) (DILAUDID) injection 0.3-0.5 mg (CA NCELED) 164 (Given - Provider: Maria Antonia Hidalog RN)1820 (Given - Provider: Maria Antonia Hidalgo, GENARO)1943 (Given - Provider: Maria Antonia Hidalgo, GENARO)2128 (Given - Provider: Yessenia Julian RN)223 (Given - Provider: Yessenia Julian RN) 003 (Given - Provider: Lucia Cotton RN)0152 (Given - Provider: Lucia Cotton RN) 0.3-0.5 mg, Intravenous, EVERY 1 HOUR SC N, Starting Fri12/25/16 at 1559, Until Zoe [...] 0832 (Gi alex - Provider: Fransisca Gates RN)1404 (Given - Provider: Maria Antonia Hidalgo RN)2022 (Given - Provider: Yessenia Julian RN) 022 (Given - Provider: Lucia Cotton RN) 30 mg, Intravenous, EVERY 6 HOURS PRN, [...] mL, Swish & Swallow, EVERY 6 HOURS SC N, mouth sores, Starting Fri12/24/16 at 1014 [...] EVERY 1 HOUR PRN, smoking cessation, Starting 12/08/16 at 1557, Gum should be chewed [...] 1 318 (Given - Provider: Maria Antonia Hidalgo, GENARO) 10-15 mg, Oral, EVERY 4 HOURS PRN, moder ate to severe pain, Starting Fri12/25/16 at 1246 oxyCODONE IR (ROXICODONE) tablet 15-20 mg 1725 (Given - Provider: Maria Antonia Hidalgo, GENARO)2023 (Given - Provider: Yessenia Julian, GENARO)2335 (Given - Provider: Yessenia Julian RN) 0302 (Given - Provider: Lucia Cotton RN)0601 (Given - Provider: Lucia Cotton, GENARO)0911 (Given - Provider: Hyacinth Wolf, GENARO)1207 (Given - Provider: Hyacinth Wolf RN)1507 (Given - Provider: Hyacinth Wolf RN) 0307 (Given - Provider: Lucia Cotton RN)0621 (Given - Provider: Lucia Cotton RN)0924 (Given - Provider: Brenna Verduzco, GENARO)1240 (Given - Provider: Brenna Verduzco RN) 15-20 mg, Oral, EVERY 3 HOURS PRN, moder ate to severe pain, Starting Fri12/25/16 at 1645, Patient is an opioid tolerant patient and will require higher narcotic doses due to buprenorphine. 1800 (Given - Provider: Maycol Clemons, RN)2101 (Given - Provider: Gudelia Clemons, GENARO)2359 [...] 0801 (Give n - Provider: Fransisca Gates RN)1826 (Given - Provider: Maria Antonia Hidalgo, GENARO) 0031 (Given - Provider: Lucia Cotton RN)0636 [...] Lucia Cotton RN)0152 (Given - Provider: Lucia Cotton, GENARO)0507 (Given - Provider: Lucia Cotton, GENARO)0658 (Given [...] (Given by Ot her - Provider: Yessenia Julian, RN) Starting on Fri12/25/16 at 1930, For [...]
Post-procedure documented in this encounter Care Teams Sand Wheeler Relationship Specialty Start Date End Date Luis Fernando Magana PCP - General Family Practice 12/07/16 01/19/18 [place] [id number] documented as of this encounter
--- OUTSIDE RECORDS SUMMARY | 2021-11-10 00:43 | XMS_ITS | Encounter Summary ---
:1980 Author Organization [place] Address [address] [facility] 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 documented as of this encounter Plan of Treatment Upcoming Encounters Date Type Specialty Care Team Description 11/15/2021 Office Visit Wound Care Luis Camara DPM [address] [place], [place] [phone] (Wo rk) Scheduled Orders Name Type Priority Associated Diagnoses Order S chedule Teresa-Operative Procedures Routine Placenta accreta, Ordered: 12/20/2016 Worksheet ( antepartum Section, Immediate Hysterectomy) documented as of this encounter Visit Diagnoses Diagnosis Placenta accreta, antepartum - Primary documented in this encounter Care Teams Cloth Finishing Range Back Tender Relationship Specialty Start Date End Date Luis Fernando Magana PCP - General Family Practice 12/07/16 01/19/18 [place] [address] documented as of this encounter
--- OUTSIDE RECORDS SUMMARY | 2021-11-10 00:43 | XMS_ITS | Encounter Summary ---
:1980 Author Organization [place] Address [address] [facility] [place] [address] Care Team Providers Name Role Phone Luis Fernando Magana Primary Care Provider Reason for Visit Auth/Cert Specialty Diagnoses / Procedures Referred By Contact Refer red To Contact denture packer Diagnoses Maternity*JEAN MARIE: 03/07/2017 Rupture premature rupture of membranes (PPROM) delivered, current hospitalization Ur [address] [place] [address] Phone: Referral ID Status Reason Start Date Expiration Date Visits Requ ested Visits Authorized [id number] 12/09/2016 12/09/2017 1 1 Encounter Details Date Type Department Care Team Description 12/19/2016 Hospital Encounter [facility] Asaf Manzanares Maternal MD Tigist [facility] SENIOR GOVERNMENT PROGRAM ANALYST AND [place] [facility] [address] [place], [place] [address] [place] [address] [phone] (Wo rk) Social History Tobacco Use Types [...] at Date Recorded Female 01/14/2020 10:57 AM CASHIER HOST/HOSTESS documented as of this encounter Medications at Time of Discharge Medication Sig Dispensed Refills Start Date End Date acetaminophen (TYLENOL) Take 2 tablets (650 60 tablet 0 11/201601/31/2018 325 MG mg) by mouth every 4 tabletIndications: S/P hours as needed for emergency mild pain hysterectomy ACETAMINOPHEN PO 0 07/05/19 19 buprenorphine (SUBUTEX) Place 1 tablet (2 120 tablet 0 11/2912/26/2016 2 MG SUBL sublingual mg) under the [...] as emergency needed for hysterectomy breakthrough pain oxyCODONE IR Take 20 mg by mouth 56 tablet 0 12/27/201611/2016 (ROXICODONE) 20 MG TABS every 3 hours as immediate release needed for moderate tabletIndications: S/P to severe pain emergency hysterectomy, S/P laparotomy senna-docusate Take 1-2 tablets by 60 tablet 0 12/26/2016 1 04/03/2017 (SENOKOT-S;PERICOLACE) mouth 2 times daily 8.6-50 MG per tabletIndications: S/P emergency hysterectomy venlafaxine (EFFEXOR-XR) Take 2 capsules (300 60 capsule 1 0 08/24/2015 01/31/2018 150 MG 24 hr mg) by mouth daily capsuleIndications: Major depressive disorder, recurrent episode, moderate (H) WELLBUTRIN SR 150 MG 12 Take 1 tablet (150 60 tablet 1 11/1712/26/2016 hr tabletIndications: mg) by mouth 2 times Major depressive daily disorder, recurrent episode, moderate (H), Uncomplicated opioid dependence (H) documented as of this encounter Plan of Treatment Upcoming Encounters Date Type Specialty Care Team Description 11/15/2021 Office Visit Wound Care Luis Camara DPM [address] [place] [phone] (Wo rk) documented as of this encounter Procedures Procedure Name Priority Date/Time Associated Diagnosis Comme [facility] BPP SINGLE Routine 12/19/2016 8:46 AM Results for this CDT procedure are i n the results section . documented in this encounter Results Maternal BPP Single (12/19/2016 8:46 AM CDT) Anatomical Region Laterality Modality Ultrasound Specimen (Source) Anatomical Collection Method Collection Time Re ceived Time Location / / Volume Laterality 12/19/2016 8:16 AM CDT Impressions 12/25/2016 9:13 AM CASHIER HOST/HOSTESS IMPRESSION 1) Intrauterine at 28 6/7 week s gestational age. 2) The BPP is reassuring. 3) Oligohydramnios is seen consistent wi th know PPROM. 4) A complete posterior placenta previa is again seen. Narrative 12/25/2016 9:13 AM CASHIER HOST/HOSTESS BPP Pat. Name: STEPHANI REDDY Study Date: 8:16am Pat. NO: [id number] Referring ??: CHRIST LOZADA Site: [facility] Networking Specialist: Jay Lu : 1980 Age: 36 INDICATION Premature Rupture of Membranes ( PPROM) Complete previa. METHOD [facility] ANTEPARTUM inpatient exam, Transabd ominal ultrasound examination. Nicole . Number of fetuses: 1. DATING ? [...] rasound with the patient. Continue surveillance with twonur robison weekly BPP. Continue inpatient management of PPROM. [...] be different from the original. BPP Pat. Name:TARI REDDYkuldip Date:12/19 8:16am Pat. NO: [id number] MD:CHRIST BHAT ON [facility]Yesenia Sen RDMS :1980Age:36 INDICATION Premature Rupture of Membranes ( PPROM) Complete previa. METHOD [facility] ANTEPARTUM inpatient exam, Transabd ominal ultrasound examination. Nicole . Number of fetuses: 1. DATING Date [...] rasound with the patient. [facility]PP. Continue inpatient management of [...] previa is again seen. Erum Manzanares MD [facility] US ORDERABLES documented in this encounter Visit Diagnoses Not on filedocumented in this encounter Care Teams Scowman Relationship Specialty Start Date End Date Luis Fernando Magana PCP - General Family Practice 12/07/16 01/19/[address] [address] documented as of this encounter
--- OUTSIDE RECORDS SUMMARY | 2021-11-10 00:43 | XMS_ITS | Encounter Summary ---
:1980 Author Organization [place] Address [address] [facility] [place] [address] Care Team Providers Name Role Phone Luis Fernando Magana Primary Care Provider Reason for Visit Auth/Cert Specialty Diagnoses / Procedures Referred By Contact Refer red To Contact loss prevention investigator Diagnoses Maternity*JEAN MARIE: 03/07/2017 Rupture premature rupture of membranes (PPROM) delivered, current hospitalization Ur [address] [address] [place] [address] Phone: Referral ID Status Reason Start Date Expiration Date Visits Requ ested Visits Authorized [id number] 12/09/2016 12/09/2017 1 1 Encounter Details Date Type Department Care Team Description 12/23/2016 Hospital Encounter [facility] Lashawn Patel, Maternal Medicine [facility] [address] [facility] [address] [place] [address] [phone] Social History Tobacco Use Types Packs/Day Years [...] at Date Recorded Female 01/14/2020 10:57 AM DIRT 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 documented in this encounter Results Maternal BPP Single (12/23/2016 8:37 AM DIRT CONTRACTOR) Anatomical Region Laterality Modality Ultrasound Specimen (Source) Anatomical Collection Method Collection Time Re ceived Time Location / / Volume Laterality 12/23/2016 8:05 AM DIRT CONTRACTOR Impressions 12/23/2016 11:10 AM DIRT CONTRACTOR IMPRESSION 1) Intrauterine at 29 3/7 week s gestational age. 2) The BPP is reassuring. 3) The amniotic fluid volume low consist ent with known PPROM. 4) There is a complete posterior/lateral placenta previa. Narrative 12/23/2016 11:10 AM DIRT CONTRACTOR BPP Pat. Name: STEPHANI REDDY Study Date: 8:05am Pat. NO: [id number] Referring ??: CHRIST LOZADA Site: [facility] Data Security Coordinator: Jay Lu : 1980 Age: 36 INDICATION Premature Rupture of Membranes ( PPROM) Complete previa. METHOD [facility] ANTEPARTUM inpatient exam, Transabd ominal [...] Barone DO - 12/23/2016 BPP Pat. Name:Elizabeth REDDY Date:12/23 8:05am Pat. NO: [id number] :CHRIST BHAT ON [facility]Yesenia Sen RDMS :1980Age:36 INDICATION Premature Rupture of Membranes ( PPROM) Complete previa. METHOD [facility] ANTEPARTUM inpatient exam, Transabd ominal [...] Thank you for the opportunity to partici hall in [...] complete posterior/lateral placenta previa. Lashawn Patel MD [facility] US ORDERABLES documented in this encounter Visit Diagnoses Not on filedocumented in this encounter Care Teams Tar Roofer Relationship Specialty Start Date End Date Luis Fernando Magana PCP - General Family Practice 12/07/16 01/19/[address] [address] documented as of this encounter
--- OUTSIDE RECORDS SUMMARY | 2021-11-10 00:43 | XMS_ITS | Encounter Summary ---
:1980 Author Organization [place] Address [facility] [place] [address] Care Team Providers Name Role Phone Luis Fernando Magana Primary Care Provider Reason for Visit Reason Onset Date Comments No Show No Show 12/23/2016 Erroneous encounter-disregard 12/23/2016 Encounter Details Date Type Department Care Team Description 12/23/2016 Office Visit [facility] Edgar Workman NO SHOW ( Primary Dx); Clinic Ashly Gauthier MD ERRONEOUS ENCOUNTER--DISREGARD [address] [place] [address] [place] [phone] Social History Tobacco Use Types Packs/Day Years [...] at Date Recorded Female 01/14/2020 10:57 AM OUTSIDE LABORER documented as of this encounter Progress Notes Amer, Edgar Abrahan, MD - 12/23/2016 12:47 PM CST This encounter was opened in error. Please disregard. IDE LABORER Sabina Mckay CMA - 12/23/2016 10:42 AM CST This patient was a no show for this scheduled appointment. IDE LABORER documented in this encounter Miscellaneous Notes Addendum Note - Edgar Workman MD - 12/23/2016 12:47 PM OUTSIDE LABORER Addended by: EDGAR WORKMAN on: 12/23/2016 12:47 PM Modules accepted: SmartSet IDE LABORER documented in this encounter Plan of Treatment Upcoming Encounters Date Type Specialty Care Team Description 11/15/2021 Office Visit Wound Care Luis Camara, [place] [address] [place] [address] (Wo rk) documented as of this encounter Visit Diagnoses Diagnosis NO SHOW - Primary ERRONEOUS ENCOUNTER--DISREGARD documented in this encounter Care Teams Sausage Machine Operator Relationship Specialty Start Date End Date Luis Fernando Magana PCP - General Family Practice 12/07/16 01/19/[address] [address] documented as of this encounter
--- OUTSIDE RECORDS SUMMARY | 2021-11-10 00:43 | XMS_ITS | Encounter Summary ---
:1980 Author Organization [place] Address [address] [place] [address]. [place] [address] Care Team Providers Name Role Phone Luis Fernando Magana Primary Care Provider Encounter Details Date Type Department Care Team Description 12/18/2016 Anesthesia Event [facility] Christina Linda MD [address] [facility] [address] [place] [address] Birthplace Delio Valentin MD [address] [facility] [place] [address] [place] [address] Anesthesia Record Procedure Summary Procedure Name Responsible Anesthesia Start Anesthesia Stop Time Anesthesiologist Time PAC ANESTH CONSULT Events No events on file. No medications on file. Agents No agents on file. Blood No blood administrations on file. Lines, Drains, and Airways No LDAs on file. 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 Pt has had prior anesthetic. Type: General and Regional ROS/MED HX ENT/Pulmonary: (+)tobacco use, Current use , . . Neurologic: (+)migraines, Cardiovascular: METS/Exercise Tolerance: Hematologic: Musculoskeletal: GI/Hepatic: (+) hepatitis type C, Renal/Genitourinary: Endo: (+) thyroid problem hypothyroidism, . Psychiatric: (+) psychiatric history anxiety and depression Infectious Disease: Malignancy: Other: Physical Exam Airway Mallampati: II TM distance: >3 FB Neck ROM: full Dental (+) other, missing, chipped and partials Cardiovascular Pulmonary Other findings: Very poor dentition; Multiple broken, chipped, irregular PAC Discussion and Assessment ASA Classification: 3 Case is suitable for: [facility] Anesthetic techniques and relevant risks discussed: Regional and GA Invasive monitoring and risk discussed: Yes Types: Possibility and Risk of blood transfusion discussed: Yes NPO instructions given: Other (comment) Additional anesthetic preparation and risks discussed: Invasive monitoring Needs early admission to pre-op area: Yes Other: PAC Resident/SECRETARIAL 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 ASA Status: 3 . NPO Status: Full stomach Plan for Spinal and Epidural PONV prophylaxis: Ondansetron (or other 5HT-3) Additional equipment: Videolaryngoscope, 2nd IV and Arterial Line Postoperative Care Postoperative pain management: IV analgesics, Oral pain medications, Neuraxial analgesia, Multi-modal analgesia and Peripheral nerve block (Single Shot). Consents Anesthetic plan, risks, benefits and alternatives discussed with: Patient. Use of blood products discussed: Yes. Use of blood products discussed with Patient. Consented to blood products. . Patient is a 36 yo F who has been admitted at 28 weeks for PPROM at 27w1d, she has a also complicated by complete placenta previa with concerns for accreta. She is consented for cesareansection hysterectomy at 34 weeks, and earlier if necessary. She has a history of CS x2 and a uterinerupture with an attempted TOLAC in her last . She is also on Suboxone therapy which will be continued throughout and delivery. She would like to be awake for the portion of the surgery, if there are no contraindications at the time or it is not emergent requiring a general anesthetic. At this time she does not have any contraindication to neuraxial placement and I would do a combined spinal epidural so that she can keep the epidural catheter on postoperative night 0 for post operative pain management. She does not necessarily need to be converted to a general anesthetic, unless she is not tolerating the hysterectomy portion, there is significant hemorrhage, or it is requested specifically by the surgeon. Arterial line and or central line will be decided upon by anesthesiologist on the day of surgery. This will be depending on what her access looks like and discussion with surgical team regarding blood loss. I would have 4U PRBCs and 4U FFP in the OR prior to the start of the case, hot lines, rapid transfuser, and contact cell saver. She will have Pitocin started per protocol after baby is delivered and continued until hysterectomy is completed. I do also have hemabate and Methergine in the OR as well. For post operative pain management, in light of her Suboxone use, I would continue her home dose of Suboxone throughout, keep epidural for post operative day 1, upon removal place TAP catheters or TAP block with Exparel, Scheduled Ibuprofen and Acetaminophen, and consideration of gabapentin, especially if she is not . Christina Linda MD December 19, 2016 documented in this encounter Plan of Treatment Upcoming Encounters Date Type Specialty Care Team Description 11/15/2021 Office Visit Wound Care Luis Camara DPM [address] [place] [address] (Wo rk) documented as of this encounter Visit Diagnoses Not on filedocumented in this encounter Care Teams Sub Arc Operator Relationship Specialty Start Date End Date Luis Fernando Magana PCP - General Family Practice 12/07/16 01/19/[address] [address] documented as of this encounter
--- OUTSIDE RECORDS SUMMARY | 2021-11-10 00:43 | XMS_ITS | Encounter Summary ---
:1980 Author Organization [place] Address [address] [facility] 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 [phone] ARCH ASSOCIATE MOLECULAR BIOLOGY documented in this encounter Plan of Treatment Upcoming Encounters Date Type Specialty Care Team Description 11/15/2021 Office Visit Wound Care Luis Camara DPM [address] [place], [place] [phone] (Wo rk) documented as of this encounter Visit Diagnoses Not on filedocumented in this encounter Care Teams Sommelier Relationship Specialty Start Date End Date Luis Fernando Magana PCP - General Family Practice 12/07/16 01/19/[address] [address] documented as of this encounter
--- OUTSIDE RECORDS SUMMARY | 2021-11-10 00:43 | XMS_ITS | Encounter Summary ---
:1980 Author Organization [place] Address [address] [facility] [place] [address] Care Team Providers Name Role Phone Luis Fernando Magana Primary Care Provider Reason for Visit Auth/Cert Specialty Diagnoses / Procedures Referred By Contact Refer red To Contact metal neutralizer Diagnoses Maternity*JEAN MARIE: 03/07/2017 Rupture premature rupture of membranes (PPROM) delivered, current hospitalization Ur [address] [place] [address] Phone: Referral ID Status Reason Start Date Expiration Date Visits Requ ested Visits Authorized [id number] 12/09/2016 12/09/2017 1 1 Encounter Details Date Type Department Care Team Description 12/16/2016 Hospital Encounter [facility] Asaf Manzanares Maternal MD Tigist [facility] CLINICAL DERMATOLOGIST AND [place] [facility] [address] [place] [address] [place] [address] [phone] (Wo rk) Social History Tobacco Use Types [...] at Date Recorded Female 01/14/2020 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 documented in this encounter Results Maternal US OB Limited Single/Multiple (12/16/2016 9:24 [...] 12/17/2016 3:14 PM CDT Limited Pat. Name: STEPHANI REDDY Study Date: 8:43am Pat. NO: [id number] Referring ??: CHRIST LOZADA Site: [facility] Mica Laminating Machine Feeder: Jay Lu : 1980 Age: 36 INDICATION Premature Rupture of Membranes ( PPROM) Complete previa. METHOD [facility] ANTEPARTUM inpatient exam, Transabd ominal ultrasound [...] different from the original. Limited Pat. Name:Elizabeth REDDY Date:12/16 8:43am Pat. NO: [id number] MD:CHRIST BHAT ON [facility]Yesenia Sen RDMS :1980Age:36 INDICATION Premature Rupture of Membranes ( PPROM) Complete previa. METHOD [facility] ANTEPARTUM inpatient exam, Transabd ominal ultrasound [...] stent with known PPROM. Erum Manzanares MD [facility] ORDERABLES documented in this encounter Visit Diagnoses Not on filedocumented in this encounter Care Teams Lamp Mechanic Relationship Specialty Start Date End Date Luis Fernando Magana PCP - General Family Practice 12/07/16 01/19/18 [place] [address] documented as of this encounter
--- OUTSIDE RECORDS SUMMARY | 2021-11-10 00:43 | XMS_ITS | Encounter Summary ---
:1980 Author Organization [place] Address [address] [facility] 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 documented as of this encounter Plan of Treatment Upcoming Encounters Date Type Specialty Care Team Description 11/15/2021 Office Visit Wound Care Luis Camara DPM [address] [place] [address] (Wo rk) documented as of this encounter Visit Diagnoses Diagnosis Placenta accreta in third trimester - Pr imary Retained placenta without hemorrhage, un specified as to episode of care documented in this encounter Care Teams Mold Repair Technician Relationship Specialty Start Date End Date Luis Fernando Magana PCP - General Family Practice 12/07/16 01/19/18 [place] [id number] documented as of this encounter
--- OUTSIDE RECORDS SUMMARY | 2021-11-10 00:44 | XMS_ITS | Encounter Summary ---
:1980 Author Organization [place] Address [address] [place] [address]. 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 Kwok You had (Test or Medicine):cervical exam Diet: Drink 8 to 12 glasses of liquids (milk, juice, water) every day. You may eat meals and snacks. Activity: Call your doctor or nurse mobile crane operator if your baby is moving less than usual. Call your provider if you notice: Swelling in your face or increased swelling in your hands or legs. Headaches that are not relieved by Tylenol (acetaminophen). Changes in your vision (blurring: seeing spots or stars.) Nausea (sick to your stomach) and vomiting (throwing up). Weight gain of 5 pounds or more per week. Heartburn that doesn't go away. Signs of bladder infection: pain when you urinate (use the toilet), need to go more often and more urgently. The bag of luis (rupture of membranes) breaks, or you notice leaking in your underwear. Bright red blood in your underwear. Abdominal (lower belly) or stomach pain. For first baby: Contractions (tightening) less than 5 minutes apart for one hour or more. Second (plus) baby: Contractions (tightening) less than 10 minutes apart and getting stronger. *If less than 34 weeks: Contractions (tightenings) more than 6 times in one hour. Increase or change in vaginal discharge (note the color and amount) Follow-up: As scheduled in the clinic documented in this encounter Medications at Time of Discharge Medication Sig Dispensed Refills Start Date End Date buprenorphine (SUBUTEX) 2 Place 1 tablet (2 120 tablet 0 12/26/2016 MG SUBL sublingual mg) under the tabletIndications: tongue 5 times Uncomplicated opioid daily dependence (H) buprenorphine HCl-naloxone Place 1 Film under 25 Film 0 0 06/13/2016 07/02/2017 HCl (SUBOXONE) 2-0.5 MG the tongue 5 times per filmIndications: daily Uncomplicated opioid dependence (H) diphenhydrAMINE (BENADRYL Take 1 tablet (25 60 tablet 1 01/31/2018 ALLERGY) 25 MG mg) by mouth every tabletIndications: Itching 8 hours as needed for itching or allergies DiphenhydrAMINE HCl Take by mouth as 0 07/04/2018 (BENADRYL ALLERGY PO) needed folic acid (FOLVITE) 1 MG Take 1 tablet (1 100 tablet 3 06/1801/31/2018 tablet mg) by mouth daily levothyroxine (SYNTHROID, Take 1 tablet by 0 01/31/2018 LEVOTHROID) 125 MCG tablet mouth daily omeprazole 20 MG Take 1 tablet (20 30 tablet 1 11/29/2016 1 04/03/2017 tabletIndications: mg) by mouth daily Gastroesophageal reflux disease, esophagitis presence not specified venlafaxine (EFFEXOR-XR) Take 2 capsules 60 capsule 1 201501/31/2018 150 MG 24 hr (300 mg) by mouth capsuleIndications: Major daily depressive disorder, recurrent episode, moderate (H) WELLBUTRIN SR 150 MG 12 hr Take 1 tablet (150 60 tablet 1 1 12/26/2016 tabletIndications: Major mg) by mouth 2 depressive disorder, times daily recurrent episode, moderate (H), Uncomplicated opioid dependence (H) documented as of this encounter Miscellaneous Notes Plan of Care - Loretta Malik RN - 12/01/2016 1:20 AM CDT Data: Patient presented to the Birthplace for rule out labor. Cervical exam closed. Membranes intact. Contractions none. Action: Presumed adequate oxygenation documented (see flow record). Discharge instructions reviewed. Patient instructed to report change in movement, vaginal leaking of fluid or bleeding, abdominal pain, or any concerns related to the to her nurse/physician. Response: Orders to discharge home per Dr. Kwok. Patient verbalized understanding of education andverbalized agreement with plan. Provider Notification - Loretta Malik RN - 12/01/2016 1:00 AM CDT 12/01/16 0100 Provider Notification Provider Name/Title Dr. Kwok Method of Notification Electronic Page OB updated of patient arrival. OB would like cervical exam and if cervix is closed and patient is not mahnaz, patient is able to be discharged to home. Plan of Care - Loretta Malik RN - 12/01/2016 12:48 AM CDT Data: Patient presented to Birthplace at 0048. Reason for maternal/ assessment per patient is rule out labor. Patient reports she believes her mucous plug is coming out. Patient feels some cramping on and off daily, but does not think they are contractions. Patient is a . record revie fri. has been uncomplicated thus far. Gestational Age 26.2. VSS. movement present. Patient denies contractions, backache, abnormal vaginal discharge, pelvic pressure, UTI symptoms, GI problems, bloody show, vaginal bleeding, edema, headache, visual disturbances, epigastric or URQ pain, abdominal pain, rupture of membranes. Support person, So, is present. Action: Verbal consent for EFM. Triage assessment completed. Bill of rights reviewed. Response: Patient verbalized agreement with plan. Will contact Dr Kwok. documented in this encounter Plan of Treatment Upcoming Encounters Date Type Specialty Care Team Description 11/15/2021 Office Visit Wound Care Luis Camara DPM [address] [place], [place] [address] (Wo rk) documented as of this encounter Visit Diagnoses Not on filedocumented in this encounter Care Teams Teacher Asst Relationship Specialty Start Date End Date Clinic, [facility] PCP - General 07/14/16 12/06/16 [facility] [place] [address] documented as of this encounter
--- OUTSIDE RECORDS SUMMARY | 2021-11-10 00:44 | XMS_ITS | Encounter Summary ---
:1980 Author Organization [place] Address [facility] 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 documented as of this encounter Medications at Time of Discharge Medication Sig Dispensed Refills Start Date End Date buprenorphine (SUBUTEX) 2 Place 1 tablet (2 140 tablet 1 11/29/2016 MG SUBL sublingual mg) under the tabletIndications: tongue 5 times Uncomplicated opioid daily dependence (H) buprenorphine Place 1 Film under 25 Film 0 06/13/2016 HCl-naloxone HCl the tongue 5 times (SUBOXONE) 2-0.5 MG per daily filmIndications: Uncomplicated opioid dependence (H) diphenhydrAMINE (BENADRYL Take 1 tablet (25 60 tablet 1 01/31/2018 ALLERGY) 25 MG mg) by mouth every tabletIndications: 8 hours as needed Itching for itching or allergies DiphenhydrAMINE HCl Take by mouth as 0 07/04/2018 (BENADRYL ALLERGY PO) needed folic acid (FOLVITE) 1 MG Take 1 tablet (1 100 tablet 3 06/1801/31/2018 tablet mg) by mouth daily levothyroxine (SYNTHROID, Take 1 tablet by 0 01/31/2018 LEVOTHROID) 125 MCG mouth daily tablet OMEPRAZOLE PO Take by mouth daily 0 venlafaxine (EFFEXOR-XR) Take 2 capsules 60 capsule 1 201501/31/2018 150 MG 24 hr (300 mg) by mouth capsuleIndications: Major daily depressive disorder, recurrent episode, moderate (H) WELLBUTRIN SR 150 MG 12 Take 1 tablet (150 60 tablet 1 09/1811/29/2016 hr tabletIndications: mg) by mouth 2 Major depressive times daily disorder, recurrent episode, moderate (H), Uncomplicated opioid dependence (H) documented as of this encounter Plan of Treatment Upcoming Encounters Date Type Specialty Care Team Description 11/15/2021 Office Visit Wound Care Luis Camara DPM [address] [place] [address] (Wo rk) documented as of this encounter Procedures Procedure Name Priority Date/Time Associated Comments Diagnosis [facility] Routine 10/31/2016 2:27 PM Drug dependenc e Results for this SINGLE CDT affecting procedur e are in in second trimester the resu lts section. documented in this encounter Results [facility] US Comprehensive Single (10/31/2016 2:27 PM CDT) Anatomical Region Laterality Modality Ultrasound Specimen (Source) Anatomical Collection Method Collection Time Re ceived Time Location / / Volume Laterality 10/31/2016 1:32 PM CDT Impressions 10/31/2016 2:39 PM CDT IMPRESSION 1) Intrauterine at 21+6 weeks gestational age. 2) None of the anomalies commonly detect ed by ultrasound were evident in the detailed anatomic survey described above. Suboptimal cardiac views. 3) Growth parameters and estimated weight were consistent with an appropriate for gestation age pattern of growth. 4) The amniotic fluid volume appeared no rmal. 5) The cervical length measurement is wi thin the normal range. There is no evidence of funneling or change with Valsalva. 6) Marginal placenta previa. Narrative 10/31/2016 2:39 PM CDT Comprehensive Pat. Name: STEPHANI REDDY Study Date: 1:32pm Pat. NO: [id number] Referring ??: LUDY RODRIGUEZ Site: [facility] Unit Director: Geovanna Hassan RDMS : 1980 Age: 36 INDICATION History of delivery, History of uterine rupture. METHOD Transabdominal ultrasound examination. V iew: Suboptimal view: limited by maternal body habitus. Nicole . Number of fetuses: 1. DATING ? Date ?Details ?Gest. age ?JEAN MARIE External assessment ?5/28/2 017 ?GA: 6 w + 2 d ? 21 w + 6 d ? 03/07/2017 U/S ? 10/31/2016 ? based upon AC, BPD, Femur, HC ? 21 w + 4 d ? 03/09/2017 Assigned dating ?Dating performed on 10/31/2016, based on the external assessment (on 07/14/2016) ? 21 w + 6 d ? 03/07/2017 GENERAL EVALUATION Cardiac activity: present. FHR 148 bpm. movements: visualized. Presentation: cephalic. Placenta: posterior, partial previa. Umbilical cord: 3 vessel cord. Amniotic fluid: Amount of AF: normal wolfgang unt. MVP 4.2 cm. MARCELLA 16.3 cm. Q1 4.0 cm, Q2 4.2 cm, Q3 4.2 cm, Q4 3.9 cm. BIOMETRY Main Biometry: BPD ? 50.6 ?mm ? 21w 2d ? Hadlock OFD ? 69.3 ?mm ? 21w 4d ? Nicolaides HC ?192.7 ?mm ?21w 4d ? Hadlock AC ?163.8 ?mm ?21w 3d ? Hadlock Femur ? 37.8 ?mm ?22w 1d ? Hadlock Cerebellum tr ? 21.6 ?mm ?20w 4d ? Nicolaides CM ? 5.8 ?mm ? Humerus ? 33.8 ?mm ? 21w 3d ?Pauly Weight Calculation: EFW ? 443 ? g ? EFW (lb,oz) ? 1 lb 0 ?oz Calculated by ?Hadlock ([id number]) Head / Face / Neck Biometry: Miter Sawyer ?3.6 ?mm ? Nasal bone ?6.5 ?mm ? Amniotic Fluid / FHR: AF MVP ?4.2 ? cm ? MARCELLA ? 16.3 ?cm ? FHR ?148 ? bpm ? ANATOMY The following structures appear normal: Head / Neck ? Cranium. Head size. Head shape. Lateral ventricles. Choroid plexus. Midline falx. Cavum septi pellucidi. Cerebellum. Cisterna magna. ? Thalami. ? Neck. Nuchal fold. Face ? Lips. Profile. Nose. Orbits. Heart / Thorax ?4-chamber view. Aortic arch. Bicaval view. Ductal arch. Cardiac position. Cardiac size. Cardiac rhythm. ? Diaphragm. Abdomen ? Abdominal wall. Cord insertion. Stomach. Kidneys. Bladder. Liver. Bowel. Spine / Skelet. ? Cervical spine. Thoracic spine. Lumbar spine. Sacral spine. Extremities ?Arms. Legs. The following structures could not be ad equately visualized: Heart / Thorax ?LVOT. The following structures could not be vi sualized: Heart / Thorax ?RVOT. 0-kumrqd-mtzsstl view. Gender: male. MATERNAL STRUCTURES Cervix ?Visualized, Appears Closed. ? Approach - Transvaginal: Cervical length 4.6 mm. ? Approach - with fundal pressure: Cervical length (2) 4.4 mm. Right Ovary ?Visualized. Left Ovary ?Visualized. RECOMMENDATION We discussed the findings on today's ult rasound with the patient. A repeat ultrasound has been scheduled i n 3 weeks to reevaluate placental location and cardiac anatomy., Return to primary provider for continued care., Thank-you for the opportunity to partici hall in the care of this patient. If you have questions regarding today's evaluation or if we can be of further service, please contact the [facility]. anomalies may be present but not detected. Procedure Note Italia Galarza, DO - 10/31/2016Format ting of this note might be different from the original. Comprehensive Pat. Name:Elizabeth REDDY Date:10/31 1:32pm Pat. NO: [id number] :JOSE ALFREDO RODRIGUEZ [facility]Geov[facility] Hassan RDMS :1980Age:36 INDICATION History of delivery, History of uterine rupture. METHOD Transabdominal ultrasound examination. V iew: Suboptimal view: limited by maternal body habitus. Nicole . Number of fetuses: 1. DATING Date Details Gest. age JEAN MARIE External assessment 07/14/2016 GA: 6 w + 2 d 21 w + 6 d 03/07/2017 U/S 10/31/2016 based upon AC, BPD, Femur, HC 21 w + 4 d 03/09/2017 Assigned dating Dating performed on 10/18, based on the external assessment (on 07/14/2016) 21 w + 6 d 03/07/2017 GENERAL EVALUATION Cardiac activity: present. FHR 148 bpm. movements: visualized. Presentation: cephalic. Placenta: posterior, partial previa. Umbilical cord: 3 vessel cord. Amniotic fluid: Amount of AF: normal wolfgang unt. MVP 4.2 cm. MARCELLA 16.3 cm. Q1 4.0 cm, Q2 4.2 cm, Q3 4.2 cm, Q4 3.9 cm. BIOMETRY Main Biometry: BPD 50.6 mm 21w 2d Hadlock OFD 69.3 mm 21w 4d Nicolaides HC 192.7 mm 21w 4d Hadlock AC 163.8 mm 21w 3d Hadlock Femur 37.8 mm 22w 1d Hadlock Cerebellum tr 21.6 mm 20w 4d Nicolaides CM 5.8 mm Humerus 33.8 mm 21w 3d Pauly Weight Calculation: EFW 443 g EFW (lb,oz) 1 lb 0 oz Calculated by Flora ([id number]) Head / Face / Neck Biometry: Miter Sawyer 3.6 mm Nasal bone 6.5 mm Amniotic Fluid / FHR: AF MVP 4.2 cm MARCELLA 16.3 cm FHR 148 bpm ANATOMY The following structures appear normal: Head / Neck Cranium. Head size. Head sha pe. Lateral ventricles. Choroid plexus. Midline falx. Cavum septi pellucidi. Cerebellum. Cisterna magna. Thalami. Neck. Nuchal fold. Face Lips. Profile. Nose. Orbits. Heart / Thorax 4-chamber view. Aortic ar ch. Bicaval view. Ductal arch. Cardiac position. Cardiac size. Cardiac rhythm. Diaphragm. Abdomen Abdominal wall. Cord insertion. Stomach. Kidneys. Bladder. Liver. Bowel. Spine / Skelet. Cervical spine. Thoracic spine. Lumbar spine. Sacral spine. Extremities Arms. Legs. The following structures could not be ad equately visualized: Heart / Thorax LVOT. The following structures could not be vi sualized: Heart / Thorax RVOT. 8-buglur-lunptvp vi ew. Gender: male. MATERNAL STRUCTURES Cervix Visualized, Appears Closed. Approach - Transvaginal: Cervical lengt h 4.6 mm. Approach - with fundal pressure: Cervic al length (2) 4.4 mm. Right Ovary Visualized. Left Ovary Visualized. RECOMMENDATION We discussed the findings on today's ult rasound with the patient. A repeat ultrasound has been scheduled i n 3 weeks to reevaluate placental location and cardiac anatomy., Return to primary provider for continued care., Thank-you for the opportunity to partici isabel in the care of this patient. If you have questions regarding today's evaluation or if we can be of further service, please contact the [facility]. anomalies may be present but not detected. IMPRESSION 1) Intrauterine at 21+6 weeks gestational age. 2) None of the anomalies commonly detect ed by ultrasound were evident in the detailed anatomic survey described above. Suboptimal cardiac views. 3) Growth parameters and estimated weight were consistent with an appropriate for gestation age pattern of growth. 4) The amniotic fluid volume appeared no rmal. 5) The cervical length measurement is wi thin the normal range. There is no evidence of funneling or change with Valsalva. 6) Marginal placenta previa. Lashawn Patel MD [facility] documented in this encounter Visit Diagnoses Diagnosis Drug dependence affecting in s econd trimester documented in this encounter Care Teams Assembler Seat Relationship Specialty Start Date End Date Clinic, [facility] PCP - General 07/14/16 12/06/[address] [place] [address] documented as of this encounter
--- OUTSIDE RECORDS SUMMARY | 2021-11-10 00:44 | XMS_ITS | Encounter Summary ---
:1980 Author Organization [place] Address [facility] [place] [address] Care Team Providers Name Role Phone Clinic, [facility] Primary Care Provide r Reason for Referral Diagnostic Procedure Outpatient - Closed Specialty Diagnoses / Procedures Referred By Contact Refer red To Contact Diagnoses Chronic hepatitis C without hepatic coma (H) Supervision of high-risk , second trimester Nella Robledo CNM [address] [place], [place] [address] Referral ID Status Reason Start Date Expiration Date Visits Requ ested Visits Authorized [id number] Closed 10/15/2016 10/15/2017 1 1 Encounter Details Date Type Department Care Team Description 10/15/2016 Orders Only M [facility] Bridget Robledo n of high-risk , second trimester (Primary Dx); [facility] Nella Wesley CNM Chronic hepatitis C without hepatic coma (H) [place] [address] [facility] Professional [address] [address] [facility] [address] (Work) [place], [place] [phone] [address] (Fax) [phone] Social History Tobacco Use Types Packs/Day Years [...] at Date Recorded Female 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 documented as of this encounter Plan of Treatment Upcoming Encounters Date Type Specialty Care Team Description 11/15/2021 Office Visit Wound Care Luis Camara, [place] [address] [place] [address] (Wo rk) Scheduled Referrals Name Type Priority Associated Diagnoses Order S chedule GASTROENTEROLOGY ADULT REF Referral Routine Chronic hepati tis C Ordered: 10/15/2016 CONSULT ONLY without hepatic coma (H) Supervision of high-risk , second trimester documented as of this encounter Visit Diagnoses Diagnosis Supervision of high-risk , seco nd trimester - Primary Chronic hepatitis C without hepatic coma (H) documented in this encounter Care Teams Chin Strap Maker Relationship Specialty Start Date End Date Clinic, [facility] PCP - General 07/14/16 12/06/[address] [place] [address] documented as of this encounter
--- OUTSIDE RECORDS SUMMARY | 2021-11-10 00:44 | XMS_ITS | Encounter Summary ---
:1980 Author Organization [place] Address [address] [facility] [place] [address] Care Team Providers Name Role Phone Clinic, [facility] Primary Care Provide r Reason for Visit Reason Onset Date Comments Medication Request 11/28/2016 Bridge for Subutex, Wellbutrin Encounter Details Date Type Department Care Team Description 11/28/[address] 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 Pt requesting bridge Rx until 12/23/16. See message below also. Wellbutrin and antiacid. Controlled Substance Refill Request for buprenorphine (SUBUTEX) 2 MG SUBL sublingual tablet Last Written Prescription Date: 10/10/16 Last Fill Quantity: 140, # refills: 1 Last Office Visit with [facility] or [facility] prescribing provider: 10/10/16 Next 5 appointments (look out 90 days) ?? Dec 23, 2016 9:30 AM BUFFET WAITER/WAITRESS Return Visit with Edgar Alfredo MD [facility] Primary [facility] ([facility]) ?? [address] [place] [address] [address] [facility] [phone] Controlled substance agreement on file: No. Documentation in problem list reviewed: Yes Processing: Call/fax RX monitoring program ([place]) reviewed: ELEMENTARY SPECIAL EDUCATION TEACHER reviewed- no concerns [place] profile: [email or web address] Santosh Pyle RN Telephone Encounter - Yuli Mark - 11/28/2016 2:20 PM CDT Pt called she will need a Subutex bridge until her next appt on 12/23, pt stated she's out of med. Pt want a refill on Wellbutrin, also pt want to know if Dr. Alfredo can prescribe her something for heartburn. Pt no showed her last appt on 11/26. Pt cell # [phone] Pt house # [phone] buprenorphine (SUBUTEX) 2 MG SUBL sublingual tablet Last Written Prescription Date: 10/10/16 Last Fill Quantity: 140, # refills: 1 Last Office Visit with [facility] or [facility] prescribing provider: 10/10/16 Next 5 appointments (look out 90 days) Dec 23, 2016 9:30 AM BUFFET WAITER/WAITRESS Return Visit with Edgar Alfredo MD [facility] ([facility]) [address] [facility] [address] WELLBUTRIN SR 150 MG 12 hr tablet Last Written Prescription Date: Last Fill Quantity: 60; # refills: 1 Last Office Visit with [facility] or [facility] prescribing provider: 10/10/16 Next 5 appointments (look out 90 days) Dec 23, 2016 9:30 AM BUFFET WAITER/WAITRESS Return Visit with Edgar Alfredo [place] [facility] [address] [facility] [phone] Last PHQ-9 score on record= PHQ-9 SCORE 06/21/2013 Total Score 15 Lab Results Component Value Date AST 10/10/2016 Lab Results Component Value Date ALT 10/10/2016 documented in this encounter Plan of Treatment Upcoming Encounters Date Type Specialty Care Team Description 11/15/2021 Office Visit Wound Care Luis Camara, [place] [address] [place] [address] (Wo rk) documented as of this encounter Visit Diagnoses Diagnosis Gastroesophageal reflux disease, esophag itis presence not specified - Primary Uncomplicated opioid dependence (H) Opioid type dependence, unspecified Major depressive disorder, recurrent epi sode, moderate (H) Major depressive disorder, recurrent epi sode, moderate documented in this encounter Care Teams Slag Skimmer Relationship Specialty Start Date End Date [facility], [facility] PCP - General 07/14/16 12/06/[address] [place] [address] documented as of this encounter
--- OUTSIDE RECORDS SUMMARY | 2021-11-10 00:44 | XMS_ITS | Encounter Summary ---
:1980 Author Organization [place] Address [facility] 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 documented as of this encounter Medications at Time of Discharge Medication Sig Dispensed Refills Start Date End Date buprenorphine (SUBUTEX) 2 Place 1 tablet (2 140 tablet 1 10/07/2016 MG SUBL sublingual mg) under the tabletIndications: [...] Take 1 tablet (150 60 tablet 1 07/1910/10/2016 hr tabletIndications: mg) by mouth 2 Major depressive times daily disorder, recurrent episode, moderate (H), Uncomplicated opioid dependence (H) documented as of this encounter Plan of Treatment Upcoming Encounters Date Type Specialty Care Team Description 11/15/2021 Office Visit Wound Care Luis Camara DPM [address] [place] [address] (Wo rk) documented as of this encounter Procedures Procedure Name Priority Date/Time Associated Diagnosis Comme nts M OB COMPLETE Routine 09/10/2016 12:48 PM Supervision of Results for this 1ST TRI SINGLE CDT high-risk , proce dure are in first trimester the results section. documented in this encounter Results MFM US OB Complete 1st Tri Single (09/10/2016 12:48 PM CDT) Anatomical Region Laterality Modality Ultrasound Specimen (Source) Anatomical Collection Method Collection Time Re ceived Time Location / / Volume Laterality 09/10/2016 12:12 PM CDT Impressions 09/10/2016 2:33 PM CDT IMPRESSION 1) Intrauterine at 14 4/7 week s gestational age. 2) None of the anomalies commonly detect ed by ultrasound were evident in this scan limited by gestational age. 3) Growth parameters and estimated weight were consistent with an appropriate for gestation age pattern of growth. 4) The amniotic fluid volume appeared no rmal. 5) The cervix is 4.1 cm long without fun neling. Narrative 09/10/2016 2:33 PM CDT 1st Trim Pat. Name: REDDYFRANSISCODI Study Date: 12:12pm Pat. NO: [id number] Referring ??: RICHARD STEIN Site: [facility] Cake Icer: Mayela Teague RD MS : 1980 Age: 35 INDICATION Vaginal bleeding , history of de livery. HISTORY General History ?+ hepatitis C ? hypothyroidism ? history of opiate use. METHOD Transabdominal ultrasound examination. Nicole . Number of fetuses: 1. DATING ? Date ?Details ?Gest. age ?JEAN MARIE External assessment ?5/28/2 017 ?GA: 6 w + 2 d ? 14 w + 4 d ? 03/07/2017 U/S ? 09/10/2016 ? based upon CRL ?14 w + 1 d ? 03/10/2017 Assigned dating ?Dating performed on 09/10/2016, based on the external assessment (on 07/14/2016) ? 14 w + 4 d ? 03/07/2017 GENERAL EVALUATION Cardiac activity: present. Placenta: posterior. Amniotic fluid: normal amount. BIOMETRY CRL ?82.6 ?mm ?14w 1d ? Hadlock FHR ?147 ? bpm ? ANATOMY The following structures were visualized : Cranium. Face. Abdominal wall. GI tract. Urogenital tract. Arms. Legs. MATERNAL STRUCTURES Cervix ?Visualized, Appears Closed. ? Approach - Transvaginal: Cervical length 41.0 mm. ? Approach - with valsalva: Cervical length (2) 37.7 mm. Right Ovary ?Visualized. Left Ovary ?Visualized. RECOMMENDATION We discussed the findings on today's uns cheduled ultrasound with the patient. Her MFM consultation is scheduled in 2 days at which time her multiple complications and risk factors will be d iscussed. Consult report will follow that visit. Procedure Note Lxe Woods MD - 09/10/2016Format ting of this note might be different from the original. 1st Trim Pat. Name:Elizabeth REDDY Date:09/10 12:12pm Pat. NO: [id number] MD:MAY JITENDRA DENNY [facility]Mayela Teague RDMS :1980Age:35 INDICATION Vaginal bleeding , history of de livery. HISTORY General History + hepatitis C hypothyroidism history of opiate use. METHOD Transabdominal ultrasound examination. Nicole . Number of fetuses: 1. DATING Date Details Gest. age JEAN MARIE External assessment 07/14/2016 GA: 6 w + 2 d 14 w + 4 d 03/07/2017 U/S 09/10/2016 based upon CRL 14 w + 1 d 03/10/2017 Assigned dating Dating performed on 08/18, based on the external assessment (on 07/14/2016) 14 w + 4 d 03/07/2017 GENERAL EVALUATION Cardiac activity: present. Placenta: posterior. Amniotic fluid: normal amount. BIOMETRY CRL 82.6 mm 14w 1d Hadlock FHR 147 bpm ANATOMY The following structures were visualized : Cranium. Face. Abdominal wall. GI tract. Urogenital tract. Arms. Legs. MATERNAL STRUCTURES Cervix Visualized, Appears Closed. Approach - Transvaginal: Cervical lengt h 41.0 mm. Approach - with valsalva: Cervical lamont th (2) 37.7 mm. Right Ovary Visualized. Left Ovary Visualized. RECOMMENDATION We discussed the findings on today's uns cheduled ultrasound with the patient. Her MFM consultation is scheduled in 2 days at which time her multiple complications and risk factors will be d iscussed. Consult report will follow that visit. IMPRESSION 1) Intrauterine at 14 4/7 week s gestational age. 2) None of the anomalies commonly detect ed by ultrasound were evident in this scan limited by gestational age. 3) Growth parameters and estimated weight were consistent with an appropriate for gestation age pattern of growth. 4) The amniotic fluid volume appeared no rmal. 5) The cervix is 4.1 cm long without fun neling. Lashawn Patel MD Nithya [facility] US ORDERABLES documented in this encounter Visit Diagnoses Diagnosis Supervision of high-risk , firs t trimester documented in this encounter Care Teams Heatset Winder Operator Relationship Specialty Start Date End Date Clinic, [facility] PCP - General 07/14/16 12/06/[address] [place] [address] documented as of this encounter
--- OUTSIDE RECORDS SUMMARY | 2021-11-10 00:44 | XMS_ITS | Encounter Summary ---
:1980 Author Organization [place] Address [facility] [place] [address] Care Team Providers Name Role Phone Clinic, [facility] Primary Care Provide r Reason for Visit Reason Comments Ultrasound TV US-H/O uterine rupture, c omplete previa and short cervix Encounter Details Date Type Department Care Team Description 10/10/2016 Office Visit [facility] Ilana Patel MD [address] [place], [place] [address]E [address] [address] H/O delivery, Maternal RaukRichard MD [address] [facility] [address] [address] currently , Medicine Center [facility] (Primary Dx) [address] [place] [address] Social History Tobacco Use Types Packs/Day Years [...] at Date Recorded Female 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 Richard Villa MD Maternal- Medicine documented in this encounter Plan of Treatment Upcoming Encounters Date Type Specialty Care Team Description 11/15/2021 Office Visit Wound Care Luis Camara, [place] [address] [place] [address] (Wo rk) documented as of this encounter Visit Diagnoses Diagnosis H/O delivery, currently , second trimester - Primary documented in this encounter Care Teams Flange Turner Relationship Specialty Start Date End Date Clinic, [facility] PCP - General 07/14/16 12/06/[address] [place] [address] documented as of this encounter
--- OUTSIDE RECORDS SUMMARY | 2021-11-10 00:44 | XMS_ITS | Encounter Summary ---
:1980 Author Organization [place] Address [facility] 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 documented in this encounter Results MFM US OB Transvaginal (10/10/2016 2:40 PM CDT) Anatomical Region Laterality Modality Ultrasound Specimen (Source) Anatomical Collection Method Collection Time Re ceived Time Location / / Volume Laterality 10/10/2016 2:07 PM CDT Impressions 10/10/2016 2:43 PM CDT IMPRESSION Normal MARCELLA. Normal cervical length with no funneling. Narrative 10/10/2016 2:43 PM CDT Cx TV Pat. Name: STEPHANI REDDY Study Date: 2:07pm Pat. NO: [id number] Referring ??: LUDY HOANG BURN Site: [facility] Order Expediter: Tammi Parra RDMS : 1980 Age: 36 INDICATION History of delivery, History of uterine rupture. METHOD Transabdominal and transvaginal ultrasou nd examination. View: Sufficient. Nicole . Number of fetuses: 1. DATING ? Date ?Details ?Gest. age ?JEAN MARIE External assessment ? 017 ?GA: 6 w + 2 d ? 18 w + 6 d ? 03/07/2017 Assigned dating ?Dating performed on 09/10/2016, based on the external assessment (on 07/14/2016) ? 18 w + 6 d ? 03/07/2017 GENERAL EVALUATION Cardiac activity: present. FHR 150 bpm. movements: visualized. Presentation: cephalic. Placenta: Placental site: posterior, posterior, lo w lying. Umbilical cord: Cord vessels: previously documented. Amniotic fluid: Amount of AF: normal. MV P 5.0 cm. MARCELLA 16.0 cm. Q1 3.8 cm, Q2 5.0 cm, Q3 2.4 cm, Q4 4.8 cm. ANATOMY Gender: male. MATERNAL STRUCTURES Cervix ?Normal, Appears closed. ? Approach - Transvaginal: Cervical length 41.1 mm. RECOMMENDATION We discussed the findings on today's cristian noriega with the patient. A repeat ultrasound has been scheduled i n 2 weeks to reevaluate the cervix length and to perform a comprehensive ultrasound. Return to primary provider for continued care. Thank-you for the opportunity to partici isabel in the care of this patient. If you have questions regarding today's evaluation or if we can be of further service, please contact the Maternal- Medicine Center. anomalies may be present but not detected. Procedure Note Richard Villa MD - 10/10/2016Forma tting of this note might be different from the original. Cx TV Pat. Name:Elizabeth REDDY Date:10/10 2:07pm Pat. NO: [id number] MD:JOSE ALFREDO RODRIGUEZ [facility]JOHAN Song :1980Age:36 INDICATION History of delivery, History of uterine rupture. METHOD Transabdominal and transvaginal ultrasou nd examination. View: Sufficient. Nicole . Number of fetuses: 1. DATING Date Details Gest. age JEAN MARIE External assessment 07/14/2016 GA: 6 w + 2 d 18 w + 6 d 03/07/2017 Assigned dating Dating performed on 08/18, based on the external assessment (on 07/14/2016) 18 w + 6 d 03/07/2017 GENERAL EVALUATION Cardiac activity: present. FHR 150 bpm. movements: visualized. Presentation: cephalic. Placenta: Placental site: posterior, posterior, lo w lying. Umbilical cord: Cord vessels: previously documented. Amniotic fluid: Amount of AF: normal. MV P 5.0 cm. MARCELLA 16.0 cm. Q1 3.8 cm, Q2 5.0 cm, Q3 2.4 cm, Q4 4.8 cm. ANATOMY Gender: male. MATERNAL STRUCTURES Cervix Normal, Appears closed. Approach - Transvaginal: Cervical lengt h 41.1 mm. RECOMMENDATION We discussed the findings on today's ult rasound with the patient. A repeat ultrasound has been scheduled i n 2 weeks to reevaluate the cervix length and to perform a comprehensive ultrasound. Return to primary provider for continued care. Thank-you for the opportunity to partici hall in the care of this patient. If you have questions regarding today's evaluation or if we can be of further service, please contact the Maternal- Medicine Center. anomalies may be present but not detected. IMPRESSION Normal MARCELLA. Normal cervical length with no funneling. Lashawn [facility]el MD [facility] documented in this encounter Visit Diagnoses Diagnosis Drug dependence affecting in s econd trimester documented in this encounter Care Teams Senior Government Program Analyst Relationship Specialty Start Date End Date Clinic, [facility] PCP - General 07/14/16 12/06/[address] [place], [place] [id number] documented as of this encounter
--- OUTSIDE RECORDS SUMMARY | 2021-11-10 00:44 | XMS_ITS | Encounter Summary ---
:1980 Author Organization [place] Address [address] [place] [address] Care Team Providers Name Role Phone Luis Fernando Magana Primary Care Provider Reason for Referral - Closed Specialty Diagnoses / Procedures Referred By Contact Refer red To Contact Diagnoses Hepatitis C virus infection, unspecified chronicity Erum Manzanares MD [facility] [address] [place] [id number] Referral ID Status Reason Start Date Expiration Date Visits Requ ested Visits Authorized [id number] Closed 12/13/2016 12/13/2017 1 1 Encounter Details Date Type Department Care Team Description 12/13/2016 Orders Only [facility] Erum Manzanares patitis C virus [facility] Birthplace MD Tigist infection, [address] [facility] AND unspecified [place] [address] INFERTILITY chronicity (Primary [phone] Dx) [place] [address] [place] [id number] (Wo rk) Social History Tobacco Use Types [...] at Date Recorded Female 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 documented as of this encounter Plan of Treatment Upcoming Encounters Date Type Specialty Care Team Description 11/15/2021 Office Visit Wound Care Luis Camara DPM [address] [place] [address] (Wo rk) Scheduled Referrals Name Type Priority Associated Diagnoses Order S chedule GASTROENTEROLOGY ADULT REF Referral Routine Hepatitis C vi brittny Ordered: CONSULT ONLY infection, unspecified 12/13 chronicity documented as of this encounter Visit Diagnoses Diagnosis Hepatitis C virus infection, unspecified chronicity - Primary documented in this encounter Care Teams Trumpet Player Relationship Specialty Start Date End Date Luis Fernando Magana PCP - General Family Practice 12/07/16 01/19/[address] [address] documented as of this encounter
--- OUTSIDE RECORDS SUMMARY | 2021-11-10 00:44 | XMS_ITS | Encounter Summary ---
:1980 Author Organization [place] Address [facility] 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 documented as of this encounter Last Filed Vital Signs Vital Sign Reading Time Taken Comments Blood Pressure 112/60 10/10/2016 3:10 PM CDT Pulse 96 10/10/2016 3:10 PM CDT Temperature - - Respiratory Rate - - Oxygen Saturation 99% 10/10/2016 3:10 PM CDT Inhaled Oxygen Concentration - - Weight 77.6 kg (171 lb) 10/10/2016 3:10 PM CDT Height - - Body Mass Index 27.61 08/01/2016 1:43 PM CDT documented in this encounter Progress Notes Edgar Alfredo MD - 10/10/2016 3:00 PM CDT SUBJECTIVE: Stephani King is a 35 year old female who presents to clinic today for the following health issues: OPIOID USE DISORDER - SUBOXONE FOLLOW UP: CURRENT DOSE: 10 MG DAILY WAS TWINS; ONE ; OTHER 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 [place] Board [employer] Pharmacy Data Base Reviewed: YES; NO ISSUES; CHECKED 10/10/16 Problem list and histories reviewed & adjusted, [...] 2 sections ??? History of stillbirth ??? complicated by Suboxone maintenance, antepartum, first trimester (H) ??? H/O rupture of uterus ??? History of MRSA infection Past Surgical History: Procedure Laterality Date ??? BREAST SURGERY ABcess drained ??? SECTION ??? 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 ORTHOPEDIC SURGERY ??? THORACIC SURGERY [...] mg) under the tongue 5 times daily 140 tablet 1 ??? WELLBUTRIN SR 150 MG 12 hr tablet Take 1 tablet (150 mg) by mouth 2 times daily 60 tablet 1 ??? diphenhydrAMINE (BENADRYL ALLERGY) 25 [...] PO) Take by mouth as needed ??? OMEPRAZOLE PO Take by mouth daily ??? levothyroxine (SYNTHROID, LEVOTHROID) 125 MCG tablet Take 1 tablet by mouth daily ??? [DISCONTINUED] VITAMINS PO Take by mouth. No Known Allergies Labs reviewed in EPIC OBJECTIVE: BP 112/60 Pulse 96 Wt 171 lb (77.6 kg) LMP 05/24/2016 (Approximate) SpO2 99% BMI 27.61 kg/m2 Body mass index is 27.61 kg/(m^2). 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 YES Drug being monitored: Suboxone Reason for drug: Opioid Use Disorder What is being monitored?: Dosage, Cravings, Trigger, side effects, and continued abstinence. PLAN: ICD-10-CM 1. Uncomplicated opioid dependence (H) F11.20 Urine Drugs of Abuse Screen Panel 13 buprenorphine (SUBUTEX) 2 MG SUBL sublingual tablet WELLBUTRIN SR 150 MG 12 hr tablet 2. Major depressive disorder, recurrent episode, moderate (H) F33.1 WELLBUTRIN SR 150 MG 12 hr tablet MEDICATIONS: Orders Placed This Encounter Medications ??? buprenorphine (SUBUTEX) 2 MG SUBL sublingual tablet Sig: Place 1 tablet (2 mg) under the tongue 5 times daily Dispense: 140 tablet Refill: 1 ??? WELLBUTRIN SR 150 MG 12 hr tablet Sig: Take 1 tablet (150 mg) by mouth 2 times daily Dispense: 60 tablet Refill: 1 - Continue other medications without change FUTURE APPOINTMENTS: - Follow-up visit in 2 MONTHS Edgar Alfredo MD [facility] documented in this encounter Plan of Treatment Upcoming Encounters Date Type Specialty Care Team Description 11/15/2021 Office Visit Wound Care Ho[facility] Luis Lex, [place] [address] [place] [address] (Wo rk) documented as of this encounter Procedures Procedure Name Priority Date/Time Associated Diagnosis Comme nts URINE DRUGS OF Routine 10/10/2016 3:06 PM Uncomplicated opioid Results for this ABUSE SCREEN PANEL CDT dependence (H) procedu re are in 13 the results section. documented in this encounter Results (ABNORMAL) Urine Drugs of Abuse Screen Panel 13 (10/10/2016 3:06 PM CDT) [facility] Method Time Signature Cannabinoids Not Detected NDET^Not 10/10/2016 LAB (44-bxw-6-carbox Detected 3:17 PM CDT y-9-THC) ng/mL Comment: Cutoff for a negative cannabino id is 50 ng/mL or less. Phencyclidine Not Detected NDET^Not Detected 10/10/2016 3:17 PM LAB (Phencyclidine) ng/mL CDT Comment: Cutoff for a negative PCP is 25 ng/mL or less. Cocaine (Benzoylecgonine) Not Detected NDET^Not Detected 0 10/10/2016 3:17 PM RJ LAB ng/mL CDT Comment: Cutoff for a negative cocaine i s 150 ng/ml or less. Methamphetamine Not Detected NDET^Not 10/10/2016 3:17 PM LAB (d-Methamphetamine) Detected ng/mL CDT Comment: Cutoff for a negative methamphe tamine is 500 ng/ml or less. Opiates (Morphine) Not Detected NDET^Not Detected 10/11/19 3:17 PM CDT RJ LAB ng/mL Comment: Cutoff for a negative opiate is 100 ng/ml or less. Amphetamine Not Detected NDET^Not Detected 10/10/2016 3:17 P M LAB (d-Amphetamine) ng/mL CDT Comment: Cutoff for a negative amphetami ne is 500 ng/mL or less. Benzodiazepines Not Detected NDET^Not Detected 10/10/2016 3: 17 PM LAB (Nordiazepam) ng/mL CDT Comment: Cutoff for a negative benzodiaz epine is 150 ng/ml or less. Tricyclic Antidepressants Not Detected NDET^Not Detected 0 10/10/2016 3:17 PM LAB (Desipramine) ng/mL CDT Comment: Cutoff for a negative tricyclic antidepressant is 300 ng/ml or less. Methadone (Methadone) Not Detected NDET^Not Detected 3:17 PM LAB ng/mL CDT Comment: Cutoff for a negative methadone is 200 ng/ml or less. Barbiturates Not Detected NDET^Not Detected 10/10/2016 3:17 PM LAB (Butalbital) ng/mL CDT Comment: Cutoff for a negative barbituat e is 200 ng/ml or less. Oxycodone (Oxycodone) Not Detected NDET^Not Detected 3:17 PM LAB ng/mL CDT Comment: Cutoff for a negative Oxycodone is 100 ng/mL or less. Propoxyphene Not Detected NDET^Not Detected 10/10/2016 3:17 PM LAB (Norpropoxyphene) ng/mL CDT Comment: Cutoff for a negative propoxyph tina is 300 ng/ml or less Buprenorphine Detected, NDET^Not 10/10/2016 3:17 PM LAB (Buprenorphine) Abnormal Result Detected ng/mL CDT (A) Comment: Cutoff for a positive buprenorphine is g reater than 10 ng/ml. This is an unconfirmed screening result to be used for medical purposes only. Order [id number] for confirmation or indivi dual confirmation tests to [employer] Specimen Anatomical Collection Method Collection Time Receive d Time (Source) Location / / Volume Laterality Urine specimen 10/10/2016 3:06 PM 017 3:07 (specimen) CDT PM CDT Edgar Alfredo MD LAB - URINE ORDERABLES Performing Organization Address City/State/ZIP [place] [address] [facility] Building [address] LAB documented in this encounter Visit Diagnoses Diagnosis Uncomplicated opioid dependence (H) Opioid type dependence, unspecified Major depressive disorder, recurrent epi sode, moderate (H) Major depressive disorder, recurrent epi sode, moderate documented in this encounter Care Teams Refrigerated National Truck Driver Relationship Specialty Start Date End Date Clinic, [facility] PCP - General 07/14/16 12/06/[address] [place] [address] [phone] documented as of this encounter
--- OUTSIDE RECORDS SUMMARY | 2021-11-10 00:44 | XMS_ITS | Encounter Summary ---
:1980 Author Organization [place] Address [address] [facility] 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 Pharmacy states, patient already picked up the medication yesterday with no problems. They forgot to inform us. NO Prior authorization needed for Subutex. Closing encounter Sarah Calvert MA Telephone Encounter - Dora Merchant - 10/11/2016 8:28 AM CDT Fax received 10/10/16 Prior Authorization needed on: 10/11/16 Medication: buprenorphine (SUBUTEX) Dose: 2 MG Pharmacy confirmed as [facility] - [place], [place] - [address] [place] [id number] Insurance Name: Submit via covermymeds [place]: [id number] Security Consultant placed form in Dr. Alfredo's folder Dora Merchant October 11, 2016 at 8:28 AM documented in this encounter Plan of Treatment Upcoming Encounters Date Type Specialty Care Team Description 11/15/2021 Office Visit Wound Care Luis Camara DPM [address] [place] [address] (Wo rk) documented as of this encounter Visit Diagnoses Not on filedocumented in this encounter Care Teams Construction Driller Relationship Specialty Start Date End Date Clinic, [facility] PCP - General 07/14/16 12/06/[address] [place] [phone] documented as of this encounter
--- OUTSIDE RECORDS SUMMARY | 2021-11-10 00:44 | XMS_ITS | Encounter Summary ---
:1980 Author Organization [place] Address [address] 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 Please disregard. documented in this encounter Plan of Treatment Upcoming Encounters Date Type Specialty Care Team Description 11/15/2021 Office Visit Wound Care Luis Camara DPM [address] [place] [address] (Wo rk) documented as of this encounter Visit Diagnoses Diagnosis ERRONEOUS ENCOUNTER--DISREGARD - Primary documented in this encounter Care Teams Director Recreation Relationship Specialty Start Date End Date Clinic, [facility] PCP - General 07/14/16 12/06/[address] [place] [phone] documented as of this encounter
--- OUTSIDE RECORDS SUMMARY | 2021-11-10 00:44 | XMS_ITS | Encounter Summary ---
:1980 Author Organization [place] Address [address] [facility] [address] Care Team Providers Name Role Phone Clinic, 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 PCP - General 07/14/16 12/06/[address] [place] [phone] documented as of this encounter
--- OUTSIDE RECORDS SUMMARY | 2021-11-10 00:44 | XMS_ITS | Encounter Summary ---
:1980 Author Organization [place] Address [address] [place] [address]. 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 Her is complicated by: AMA, hypothyroidism, depression/anxiety, opioiddependence, tobacco use, history of stillbirth, uterine rupture, and section x 2. She states that for the past week or so she has noticed an increase in the quantity of mucousy discharge. She also notes intermittent period of dark brown discoloration. She also endorses fatigue and regular cramping and suprapubic tenderness. She denies fevers/chills, nausea/vomiting, chest pain, shortness of breath, dysuria, or constipation. No recent intercourse. Attempting to adequately hydrate herself. Discussed recommendations to proceed to closest facility for evaluation. With current symptoms, she should be ruled our for labor and/or other infectious etiology. Patient endorses understanding plan and is in process of getting transportation. Kayla Olivares MD DIRECTOR OF OFFICIATING Resident, PGY-3 11/30/2016 11:39 PM documented in this encounter Plan of Treatment Upcoming Encounters Date Type Specialty Care Team Description 11/15/2021 Office Visit Wound Care Luis Camara, [place] [address] [place] [address] (Wo rk) documented as of this encounter Visit Diagnoses Not on filedocumented in this encounter Care Teams Application Manager Relationship Specialty Start Date End Date Clinic, [facility] PCP - General 07/14/16 12/06/[address] [place] [address] documented as of this encounter
--- OUTSIDE RECORDS SUMMARY | 2021-11-10 00:44 | XMS_ITS | Encounter Summary ---
:1980 Author Organization [place] Address [facility] 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 States she is not able to come to her consult today as she does not have a ride.Pt wondering when she can reschedule to come back to talk about having her stitch placed. Appointment time for 10/01 at 10:15 given. Pt states understanding of date and time. Also states understandingof importance of appointment. No further questions at this time. Anabelle Thomas RN documented in this encounter Plan of Treatment Upcoming Encounters Date Type Specialty Care Team Description 11/15/2021 Office Visit Wound Care Luis Camara, [place] [address] [place], [place] [address] (Wo rk) documented as of this encounter Visit Diagnoses Not on filedocumented in this encounter Care Teams Forensic Analyst Relationship Specialty Start Date End Date Clinic, [facility] PCP - General 07/14/16 12/06/[address] [place] [address] documented as of this encounter
--- OUTSIDE RECORDS SUMMARY | 2021-11-10 00:44 | XMS_ITS | Encounter Summary ---
:1980 Author Organization [place] Address [facility] [place] [address] Care Team Providers Name Role Phone Clinic, [facility] Primary Care Provide r Reason for Visit Reason Comments Ultrasound L2/TV-LLP and h/o uterine ru pture, PTD Encounter Details Date Type Department Care Team Description 10/31/2016 Office Visit [facility] Ilana Patel MD [address] [facility] [address] [place], [place] [address] Suspected anomaly, antepartum, not applicable or unspecified fetus (Primary Dx); Maternal Italia GalarzaDO [address] [facility] [address] [place], [place] [address] Placenta previa, second trimester; Medicine Center H/O delivery, currently , second trimester [place] [address] [place], [place] [address] Social History Tobacco Use Types Packs/Day Years [...] at Date Recorded Female 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 Italia Galarza DO Maternal- Medicine documented in this encounter Plan of Treatment Upcoming Encounters Date Type Specialty Care Team Description 11/15/2021 Office Visit Wound Care Luis Camara, [place] [address] [place] [address] (Wo rk) documented as of this encounter Visit Diagnoses Diagnosis Suspected anomaly, antepartum, not applicable or unspecified fetus - Primary Placenta previa, second trimester H/O delivery, currently , second trimester documented in this encounter Care Teams Web Coordinator Relationship Specialty Start Date End Date Clinic, [facility] PCP - General 07/14/16 12/06/[address] [place] [address] documented as of this encounter
--- OUTSIDE RECORDS SUMMARY | 2021-11-10 00:44 | XMS_ITS | Encounter Summary ---
:1980 Author Organization [place] Address [facility] 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 Patient has been scheduled threetimes for appointments with our clinic and has no showed for all three. Removing orders. Referring clinic notified that a new referral will need to placed. Clinical Lab Specialist Maricruz Pina documented in this encounter Plan of Treatment Upcoming Encounters Date Type Specialty Care Team Description 11/15/2021 Office Visit Wound Care Luis Camara DPM [address] [place] [address] (Wo rk) documented as of this encounter Visit Diagnoses Not on filedocumented in this encounter Care Teams Ironworker Foreman Relationship Specialty Start Date End Date Clinic, [facility] PCP - General 07/14/16 12/06/[address] [place] [address] documented as of this encounter
--- OUTSIDE RECORDS SUMMARY | 2021-11-10 00:44 | XMS_ITS | Encounter Summary ---
:1980 Author Organization [place] Address [address] [facility] [address] Care Team Providers Name Role Phone Luis Fernando Magana Primary Care Provider Reason for Visit Auth/Cert Specialty Diagnoses / Procedures Referred By Contact Refer red To Contact service order expediter Diagnoses Maternity*JEAN MARIE: 03/07/2017 Rupture premature rupture of membranes (PPROM) delivered, current hospitalization [facility] [address] [place] [address] Phone: Referral ID Status Reason Start Date Expiration Date Visits Requ ested Visits Authorized [id number] 12/09/2016 12/09/2017 1 1 Encounter Details Date Type Department Care Team Description 12/08/2016 Hospital Encounter [facility] Maternal [facility] Center Jevonhaydee chrislorriberta [address] [place], [place] [phone] Social History Tobacco Use Types Packs/Day Years [...] at Date Recorded Female 01/14/2020 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 documented in this encounter Results Maternal US Comprehensive Single F/U (12/08/2016 9:52 [...] AM CDT Comp Follow Up Pat. Name: STEPHANI REDDY Study Date: 9:10am Pat. NO: [id number] Referring ??: CHRIST LOZADA Site: [facility] Home School Teacher: Jay Lu : 1980 Age: 36 INDICATION Premature Rupture of Membranes ( PPROM) Complete previa. METHOD Transabdominal ultrasound examination, [facility] inpatient exam. View: Suboptimal view: limited by maternal body habitus. Suboptimal view: limited by low amniotic fluid volume. Nicole . Number of fetuses: 1. DATING [...] 2 lb 1 ?oz Calculated by ?Hadlock ([id number]) Head / Face / Neck Biometry: Beater Machine Operator ?3.9 ?mm ? Amniotic Fluid / FHR: [...] the original. Comp Follow Up Pat. Name:Elizabeth REDDY Date:12/08 9:10am Pat. NO: [id number] MD:CHRIST BHAT ON Site:[facility]MCSonographer:Yeseniasosa Sen RDMS :1980Age:36 INDICATION Premature Rupture of Membranes ( PPROM) Complete previa. METHOD Transabdominal ultrasound examination, [facility] inpatient exam. View: Suboptimal view: limited by maternal body habitus. Suboptimal view: limited by low amniotic fluid volume. Nicole . Number of fetuses: 1. DATING [...] 2 lb 1 oz Calculated by Flora ([id number]) Head / Face / Neck Biometry: Beater Machine Operator 3.9 mm Amniotic Fluid / FHR: AF [...] RECOMMENDATION We discussed the findings on today's [facility] rasound with the patient. surveillance with twice-weekly [...] 6/8, off for MARCELLA consistent with PPROM. Rossana Barker MD [facility] ORDERABLES documented in this encounter Visit Diagnoses Not on filedocumented in this encounter Care Teams Energy Conservation Technician Relationship Specialty Start Date End Date Luis Fernando Magana PCP - General Family Practice 12/07/16 01/19/18 [place] [phone] documented as of this encounter
--- OUTSIDE RECORDS SUMMARY | 2021-11-10 00:44 | XMS_ITS | Encounter Summary ---
:1980 Author Organization [place] Address [facility] [place] [address] Care Team Providers Name Role Phone Clinic, [facility] Primary Care Provide r Reason for Visit Reason Comments Ultrasound 2/3 tri u/s- hx uterine rupt ure, PTD Encounter Details Date Type Department Care Team Description 09/10/2016 Office Visit [facility] Ilana Patel MD [address] [address] H/O delivery, Maternal Lex Woods MD [address] [address] currently , [facility] (Primary Dx) [address] [place], [place] [address]E [place], [place] [address] Social History Tobacco Use Types Packs/Day Years [...] at Date Recorded Female 01/14/2020 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 Lex Woods M.D. Specialist in Maternal- Medicine documented in this encounter Plan of Treatment Upcoming Encounters Date Type Specialty Care Team Description 11/15/2021 Office Visit Wound Care Luis Camara, [place] [address] [place] [address] (Wo rk) documented as of this encounter Visit Diagnoses Diagnosis H/O delivery, currently , second trimester - Primary documented in this encounter Care Teams Piggery Worker Relationship Specialty Start Date End Date Clinic, [facility] PCP - General 07/14/16 12/06/[address] [place] [address] documented as of this encounter
--- OUTSIDE RECORDS SUMMARY | 2021-11-10 00:44 | XMS_ITS | Encounter Summary ---
:1980 Author Organization [place] Address [address] [facility] 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 Mark Roldan Ingot Weigher Telephone Encounter - Edgar Alfredo MD - 10/07/2016 2:43 PM CDT Please call patient to schedule for 3:00 10/10/16 Telephone Encounter - Edgar Alfredo MD - 10/07/2016 2:09 PM CDT She can come at 3:00 but may have to wait some I'll call in a 3 day bridge Telephone Encounter - Mark Roldan - 10/07/2016 12:49 PM CDT Pt called she will need a 4 day bridge of Subutex, pt can come in on 10/10/16 @ 1 pm or 3 pm these are the only times that would work for pt. Pt contact info: [phone] [facility] in [place]. Mark Roldan Ingot Weigher documented in this encounter Plan of Treatment Upcoming Encounters Date Type Specialty Care Team Description 11/15/2021 Office Visit Wound Care Luis Camara, [place] [address] [place] [address] (Wo rk) documented as of this encounter Visit Diagnoses Diagnosis Uncomplicated opioid dependence (H) Opioid type dependence, unspecified documented in this encounter Care Teams Respiratory Physician Relationship Specialty Start Date End Date Clinic, [facility] PCP - General 07/14/16 12/06/[address] [place] [address] documented as of this encounter
--- OUTSIDE RECORDS SUMMARY | 2021-11-10 00:44 | XMS_ITS | Encounter Summary ---
:1980 Author Organization [place] Address [address] [facility] 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 Please disregard. documented in this encounter Plan of Treatment Upcoming Encounters Date Type Specialty Care Team Description 11/15/2021 Office Visit Wound Care Luis Camara DPM [address] [place] [address] (Wo rk) documented as of this encounter Visit Diagnoses Diagnosis ERRONEOUS ENCOUNTER--DISREGARD - Primary documented in this encounter Care Teams Market Research Analyst Relationship Specialty Start Date End Date Clinic, [facility] PCP - General 07/14/16 12/06/[address] [place] [address] documented as of this encounter
--- OUTSIDE RECORDS SUMMARY | 2021-11-10 00:44 | XMS_ITS | Encounter Summary ---
:1980 Author Organization [place] Address [address] [facility] 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 Left message to call back to discuss lab results. NOTE: Hep C RNA result was discussed at high-risk rounds with the following recommendations: - result shows chronic Hep C (which should be known to pt) - referral placed for GI consultation Telephone Encounter - May Magallanes RN - 10/15/2016 3:24 PM CDT ----- Message from Abby Salazar sent at 10/14/2016 3:53 PM CDT ----- Regarding: test results Patient calling for test results. Thanks. documented in this encounter Plan of Treatment Upcoming Encounters Date Type Specialty Care Team Description 11/15/2021 Office Visit Wound Care Luis Camara, [place] [address] [place] [address] (Wo rk) documented as of this encounter Visit Diagnoses Not on filedocumented in this encounter Care Teams Cigar Binder Relationship Specialty Start Date End Date Clinic, [facility] PCP - General 07/14/16 12/06/[address] [place] [address] documented as of this encounter
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
--- OUTSIDE RECORDS SUMMARY | 2021-11-10 00:44 | XMS_ITS | Encounter Summary ---
:1980 Author Organization [place] Address [address] [facility] [place] [address] Care Team Providers Name Role Phone Luis Fernando Magana Primary Care Provider Reason for Visit Auth/Cert Specialty Diagnoses / Procedures Referred By Contact Refer red To Contact artist color separation Diagnoses Maternity*JEAN MARIE: 03/07/2017 Rupture premature rupture of membranes (PPROM) delivered, current hospitalization [facility] [address] [place] [address] Phone: Referral ID Status Reason Start Date Expiration Date Visits Requ ested Visits Authorized [id number] 12/09/2016 12/09/2017 1 1 Encounter Details Date Type Department Care Team Description [facility]/12[facility]2016 [facility] [place] [address] [place] [id number] Social History Tobacco Use Types Packs/Day Years [...] at Date Recorded Female 01/14/2020 10:57 AM STOPER documented as of this encounter Medications at [...] Visit Wound Care Luis Camara DPM [address] [place] [address] (Wo rk) documented as of this encounter Procedures Procedure Name Priority Date/Time Associated Diagnosis Comme nts [facility] US OB LIMITED Routine 12/12/2016 8:36 AM Resu lts for this SINGLE/MULTIPLE CDT procedure ar e in the results section. documented in this encounter Results Maternal US OB Limited Single/Multiple (12/12/2016 8:36 [...] 8:52 AM CDT Cx TV Pat. Name: STEPHANI REDDY Study Date: 7:48am Pat. NO: [id number] Referring ??: CHRIST LOZADA Site: [facility] Divisional Human Resources Director: Jay Lu : 1980 Age: 36 INDICATION Premature Rupture of Membranes ( PPROM), Complete Previa. [facility] ANTEPARTUM inpatient exam, Transabd ominal and transvaginal ultrasound examination. View: Sufficient. Nicole . Number of [...] the end of the ultrasound. Please see [facility] for further documentation regarding plan of care. If you have questions regarding today's evaluation or if we can be of further service, please contact the Maternal- [facility] Center. anomalies may be present but not detected. Procedure Note CrossNora MD - 12/12/2016For matting of this note might be different from the original. Cx TV Pat. Name:Elizabeth REDDY Date:12/12 7:48am Pat. NO: [id number] :CHRIST BHAT ON [facility]:Yesenia Sen RDMS :1980Age:36 INDICATION Premature Rupture of Membranes ( PPROM), Complete Previa. [facility] ANTEPARTUM inpatient exam, Transabd ominal and transvaginal ultrasound examination. View: Sufficient. Nicole . Number of [...] the end of the ultrasound. Please see [facility] for further documentation regarding plan [...] the placental-myometrial interface appears normal. Nora Mohamud [facility] US ORDERABLES documented in this encounter Visit Diagnoses Not on filedocumented in this encounter Care Teams Flight Test Shop Mechanic Relationship Specialty Start Date End Date Luis Fernando Magana PCP - General Family Practice 12/07/16 01/19/18 [place] [address] documented as of this encounter
--- OUTSIDE RECORDS SUMMARY | 2021-11-10 00:44 | XMS_ITS | Encounter Summary ---
:1980 Author Organization [place] Address [address] [facility] 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 PA Case# [id number]. Lupe Lantigua MA Telephone Encounter - Lupe Lantigua CMA - 09/10/2016 8:21 AM CDT Staff called [facility] PA Department at [phone] (Option#3). Staff is waiting for PA request to be faxed. Staff completed and faxed PA request for Subutex 2mg tablets 120 tablets per 30 days. Lupe Lantigua MA Telephone Encounter - Mark Roldan - 09/09/2016 2:29 PM CDT Prior Authorization needed on: 09/09/16 Medication: Buprenorphine HCL Dose: 2 mg Pharmacy confirmed as [facility] [address] [facility] , Insurance: Go to for; to (do) Centers Insurance vigil: [id number] Mark Roldan September 09, 2016 at 2:29 PM documented in this encounter Plan of Treatment Upcoming Encounters Date Type Specialty Care Team Description 11/15/2021 Office Visit Wound Care Luis Camara, [place] [address] [place], [place] [id number] (Wo rk) documented as of this encounter Visit Diagnoses Not on filedocumented in this encounter Care Teams Precision Mechanical Instrument Maker Relationship Specialty Start Date End Date Clinic, [facility] PCP - General 07/14/16 12/06/[address] [place] [address] documented as of this encounter
--- OUTSIDE RECORDS SUMMARY | 2021-11-10 00:44 | XMS_ITS | Encounter Summary ---
:1980 Author Organization [place] Address [address] [place] [address]. 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 For the past two months, she has had lower abdominal heaviness and cramping when she is standing or walking around during the day. The discomfort is improved when she lies down and when she elevates her belly. She otherwise reports good movement and denies vaginal bleeding, loss of fluid, vaginal discharge, and contractions. She is planning to call the clinic tomorrow to schedule her next visit, as shedoes not have anything scheduled at this time. Recommend support belt. She will discuss this with her provider at her visit. Ann Marie Sen MD BIOMEDICAL ENGINEERING PROFESSOR, PGY2 11/26/16 documented in this encounter Plan of Treatment Upcoming Encounters Date Type Specialty Care Team Description 11/15/2021 Office Visit Wound Care Luis Camara, DPM [address] [place] [address] (Wo rk) documented as of this encounter Visit Diagnoses Not on filedocumented in this encounter Care Teams Phlebotomy Program Coordinator Relationship Specialty Start Date End Date [facility], [facility] PCP - General 07/14/16 12/06/[address] [place] [address] documented as of this encounter
--- OUTSIDE RECORDS SUMMARY | 2021-11-10 00:44 | XMS_ITS | Encounter Summary ---
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 transaminases once a trimester. Avoidance of operative delivery or invasive monitoring, if possible, during labor an d delivery. Finally, smoking cessation during was recommended, as was pelvic rest until resolution of placenta previa. A copy of this consultation will be sent to your office. Thank you for the opportunity to partici hall in the care of this patient. If you have questions regarding today?s evaluation or if we can be of further service, please contact the [facility]. I served as a scribe for Dr. Amanda Jacinto MD Maternal- [facility] The documentation recorded by the scribe accurately reflects the services I personally performed and the decisions made by me. Lashawn Patel I spent a total of 30 minutes face-to-fa ce with Stephani Reddy during today's office visit. Over 50% of this time was spent counseling the patient and/or coordinating care regarding complicated by prior medical and OB history as noted above . See note for details. Lashawn Patel. RECOMMENDATION We discussed the findings on today's ult rasound with the patient. Please see consultation section for disc ussion and recommendations. Recommend pelvic rest until resolution of placenta previa. A repeat TV US has been scheduled here i n 1 week. Return to primary provider for continued care. Thank you for the opportunity to partici isabel in the care of this patient. If you have questions regarding today's evaluation or if we can be of further service, please contact the [facility]. anomalies may be present but not detected. IMPRESSION 1) Intrauterine at 17 4/7 week s gestational age. 2) None of the anomalies commonly detect ed by ultrasound were evident in the limited anatomic survey described above. 3) Growth parameters and estimated weight were consistent with an appropriate for gestation age pattern of growth. 4) The amniotic fluid volume appeared no rmal. 5) A posterior complete placenta previa is seen on US today. 6) The transvaginal cervical length is w ithin . Lashawn Patel MD [facility] US ORDERABLES documented in this encounter Visit Diagnoses Diagnosis High-risk , first trimester documented in this encounter Care Teams Receptionist Scheduler Relationship Specialty Start Date End Date Clinic, [facility] PCP - General 07/14/16 12/06/[address] [place] [address] documented as of this encounter
--- OUTSIDE RECORDS SUMMARY | 2021-11-10 00:44 | XMS_ITS | Encounter Summary ---
:1980 Author Organization [place] Address [facility] [place] [address] Care Team Providers Name Role Phone Clinic, [facility] Primary Care Provide r Encounter Details Date Type Department Care Team Description 10/10/2016 Orders Only [facility] Lori Patelat e dependence (H); [facility] Laborato MD Lashawn High-risk , first trimester; [facility] 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 HIV ANTIGEN ANTIBODY Routine 10/10/2016 1:52 High-risk pregnan cy, Results for this COMBO PM CDT first trimester procedure ar e in the results section. CBC WITH PLATELETS & Routine 10/10/2016 1:52 High-risk pregnan cy, Results for this DIFFERENTIAL PM CDT first trimester procedure ar e in the results section. VITAMIN D DEFICIENCY Routine 10/10/2016 1:52 High-risk pregnan cy, Results for this SCREENING PM CDT first trimester procedure ar e in the results section. TSH WITH FREE T4 Routine 10/10/2016 1:52 Hypothyroidism Result s for this REFLEX PM CDT affecting in [facility] are in first trimester the results section. HEPATITIS C ANTIBODY Routine 10/10/2016 1:52 High-risk pregnan cy, Results for this PM CDT first trimester procedure ar e in the results section. HEPATITIS C RNA, Routine 10/10/2016 1:52 High-risk , Results for this QUANTITATIVE BY PCR PM CDT first trimes ter procedure are in Chronic hepatitis C the resu lts without hepatic coma section . (H) HEPATITIS B SURFACE Routine 10/10/2016 1:52 High-risk pregnanc y, Results for this ANTIGEN PM CDT first trimester procedure ar e in the results section. HEPATIC FUNCTION Routine 10/10/2016 1:52 High-risk , Results for this PANEL PM CDT first trimester procedure are in Chronic hepatitis C the resu lts without hepatic coma section . (H) ANTI TREPONEMA Routine 10/10/2016 1:52 High-risk , Re sults for this PM CDT first trimester procedure ar e in the results section. ABO/RH TYPE AND Routine 10/10/2016 1:52 High-risk , R esults for this SCREEN PM CDT first trimester procedure ar e in the results section. documented in this encounter Results (ABNORMAL) Hepatitis C RNA quantitative (10/10/2016 1:52 PM CDT) [facility] Method Time Signature HCV RNA Quant 5,[id number],767 HCVND^HCV 10/14/2016 [facility] IU/ml (A) RNA Not 12:34 PM CDT [facility] [IU]/mL BANK Comment: The LEONARDO AmpliPrep/LEONARDO TaqMan [...] Amplification based assays. Log of HCV RNA 6.7 (H) <1.2 Log IU/mL 10/14/2016 12:34 PM [facility] Qt [facility] Specimen Anatomical Collection Method Collection Time Receive d Time (Source) Location / / Volume Laterality Blood specimen 10/10/2016 1:52 PM 017 1:55 (specimen) CDT PM CDT Violeta Fagan APRN, CNM LAB - BLOOD ORDERABLES Performing Organization Address City/State/ZIP Code Phon e Number [id number] [place] [address] (ABNORMAL) Hepatic Panel (10/10/2016 1:52 PM CDT) [facility] Method Time Signature Bilirubin Direct 0.1 0.0 - 0.2 10/10/2016 [facility] F mg/dL 3:12 PM CDT [facility] Bilirubin Total 0.4 0.2 - 1.3 10/10/2016 [facility] mg/dL 3:12 PM CDT [facility] Albumin 2.8 (L) 3.4 - 5.0 10/10/2016 [facility] g/dL 3:12 PM CDT [facility] Protein Total 7.1 6.8 - 8.8 10/10/2016 [facility] g/dL 3:12 PM CDT [facility] Alkaline 60 40 - 150 10/10/2016 [facility] Phosphatase U/L 3:19 PM CDT [facility] ALT 27 0 - 50 U/L 10/10/2016 [facility] 3:12 PM CDT [facility] AST 17 0 - 45 U/L 10/10/2016 [facility] 3:12 PM CDT [facility] Specimen Anatomical Collection Method Collection Time Receive d Time (Source) Location / / Volume Laterality Blood specimen 10/10/2016 1:52 PM 017 1:55 (specimen) CDT PM CDT Violeta STEVENS LAB - BLOOD ORDERABLES Performing Organization Address City/[facility]/ZIP Code Phon e Number [address] [id number] [facility] TSH with free T4 reflex (10/10/2016 1:52 PM CDT) P athologist Signature TSH 1.66 0.40 - 4.00 10/10/2016 [facility] mU/L 3:19 PM CDT [facility] Specimen Anatomical Collection Method Collection Time Receive d Time (Source) Location / / Volume Laterality Blood specimen 10/10/2016 1:52 PM 017 1:55 (specimen) CDT PM CDT Violeta STEVENS LAB - BLOOD ORDERABLES Performing Organization Address City/State/ZIP Code Phon e Number [address] [address] [facility] (ABNORMAL) Hepatitis C antibody (10/10/2016 1:52 PM CDT) Patholo gist Method Time Signature Hepatitis C Reactive (A) NR^Nonrea 10/11/2016 [facility] ctive 1:18 PM CDT [facility] Comment: A reactive result indicates one of the f ollowing 1) current HCV infection 2) past HCV infection that has resolved or 3) false positivity. The CDC recommends that a reactive result should be followed by Nucleic acid testing for HCV RNA. If HCV RNA is detected, that indicates c urrent HCV infection. If HCV RNA is not detected, that indicates either past , resolved HCV infection, or false HCV antibody positivity. Assay performance characteristics have n ot been established for newborns, infants, and children Specimen Anatomical Collection Method Collection Time Receive d Time (Source) Location / / Volume Laterality Blood specimen 10/10/2016 1:52 PM 017 1:55 (specimen) CDT PM CDT Violeta STEVENS LAB - BLOOD ORDERABLES Performing Organization Address City/[facility]/ZIP Code Phon e Number [facility] [address] [phone] [facility] HIV Antigen Antibody Combo [[id number]] (10/10/2016 1:52 PM CDT) [facility] Method Time Signature HIV Antigen Nonreactive NR^Nonrea 10/11/2016 [facility] Antibody ctive 1:18 PM CDT [facility] Comment: HIV-1 p24 Ag & HIV-1/HIV-2 Ab N ot Detected Specimen Anatomical Collection Method Collection Time Receive d Time (Source) Location / / Volume Laterality Blood specimen 10/10/2016 1:52 PM 017 1:55 (specimen) CDT PM CDT Violeta Fagan APRN [facility] LAB - BLOOD ORDERABLES Performing Organization Address City/[facility]/ZIP Code Phon e Number [facility] [address] Hepatitis B Surface Antigen [[id number]] (10/10/2016 1:52 PM CDT) [facility] Method Time Signature Hep B Surface Nonreactive NR^Nonrea 10/11/2016 [facility] Agn ctive 1:18 PM CDT [facility] Specimen Anatomical Collection Method Collection Time Receive d Time (Source) Location / / Volume Laterality Blood specimen 10/10/2016 1:52 PM 017 1:55 (specimen) CDT PM CDT Violeta STEVENS LAB - BLOOD ORDERABLES Performing Organization Address City/[facility]/ZIP Code Phon e Number [facility] [address] Rubella Antibody IgG Quantitative [[id number]] (10/10/2016 1:52 PM CDT) Analysis Performed At [facility] logist Time Signature Rubella Antibody 8 IU/mL 10/11/2016 [facility] F IgG Quantitative 1:44 PM CDT [facility] Comment: Equivocal, please recollect. Reference Range: ??Unvaccinated Negative 0-7 IU/mL Vaccinated or previous exposure Positive 10 IU/ml or greater Specimen Anatomical Collection Method Collection Time Receive d Time (Source) Location / / Volume Laterality Blood specimen 10/10/2016 1:52 PM 017 1:55 (specimen) CDT PM CDT Violeta Fagan APRN [facility] LAB - BLOOD ORDERABLES Performing Organization Address City/[facility]/ZIP Code Phon e Number [address] Anti Treponema [[id number]] (10/10/2016 1:52 PM CDT) Analysis Performed At Patho logist Time Signature Treponema Negative NEG^Negati 10/11/2016 [facility] ve 10:21 AM CDT [facility] Specimen Anatomical Collection Method Collection Time Receive d Time (Source) Location / / Volume Laterality Blood specimen 10/10/2016 1:52 PM 017 1:55 (specimen) CDT PM CDT Violeta Fagan APRN [facility] LAB - BLOOD ORDERABLES Performing Organization Address City/[facility]/ZIP Code Phon e Number [address] (ABNORMAL) CBC with Platelets Differential [[id number]] (10/10/2016 1:52 PM CDT) Patholo gist Method Time Signature WBC 5.3 4.0 - 10/10/2016 [facility] 11.0 2:[address] [facility] 10e9/L [facility] RBC Count 3.64 (L) 3.8 - 5.2 10/10/2016 [facility] 10e12/L 2:52 PM CDT [facility] Hemoglobin 11.1 (L) 11.7 - 10/10/2016 [facility] 15.7 g/dL 2:52 PM CDT [facility] Hematocrit 32.7 (L) 35.0 - 10/10/2016 [facility] 47.0 % 2:52 PM CDT [facility] MCV 90 78 - 100 10/10/2016 [place] [facility] de 2:52 PM CDT [facility] MCH 30.5 26.5 - 10/10/2016 [facility] 33.0 pg 2:52 PM CDT [facility] MCHC 33.9 31.5 - 10/10/2016 [facility] 36.5 g/dL 2:52 PM T [facility] RDW 13.1 10.0 - 10/10/2016 [facility] 15.0 % 2:52 PM T [facility] Platelet Count 186 150 - 450 10/10/2016 [facility] 10e9/L 2:52 PM T [facility] Diff Method Automated 10/10/2016 [facility] Method 2:52 PM T [facility] % Neutrophils 61.4 % 10/10/2016 [facility] 2:52 PM T [facility] % Lymphocytes 29.2 % 10/10/2016 [facility] 2:52 PM T [facility] % Monocytes 6.2 % 10/10/2016 [facility] 2:52 PM T [facility] % Eosinophils 2.8 % 10/10/2016 [facility] 2:52 PM T [facility] % Basophils 0.2 % 10/10/2016 [facility] 2:52 PM T [facility] % Immature 0.2 % 10/10/2016 [facility] Granulocytes 2:52 PM T [facility] Nucleated RBCs 0 0 /100 10/10/2016 [facility] 2:52 PM T [facility] Absolute 3.3 1.6 - 8.3 10/10/2016 [facility] Neutrophil 10e9/L 2:52 PM [facility] Absolute 1.6 0.8 - 5.3 10/10/2016 [facility] Lymphocytes 10e9/L 2:52 PM T [facility] Absolute 0.3 0.0 - 1.3 10/10/2016 [facility] Monocytes 10e9/L 2:52 PM T [facility] Absolute 0.2 0.0 - 0.7 10/10/2016 [facility] Eosinophils 10e9/L 2:52 PM T [facility] Absolute 0.0 0.0 - 0.2 10/10/2016 [facility] Basophils 10e9/L 2:52 PM T [facility] Abs Immature 0.0 0 - 0.4 10/10/2016 [facility] Granulocytes 10e9/L 2:52 PM CDT [facility] Absolute 0.0 10/10/2016 [facility] Nucleated RBC 2:52 PM CDT [facility] Specimen Anatomical Collection Method Collection Time Receive d Time (Source) Location / / Volume Laterality Blood specimen 10/10/2016 1:52 PM 017 1:55 (specimen) CDT PM CDT Violeta Fagan APRN [facility] LAB - BLOOD ORDERABLES Performing Organization Address City/State/ZIP Code Phon e Number [address] [address] [facility] ABO/Rh Type and Screen [[id number]] (10/10/2016 1:52 PM CDT) Patholo gist Method Time Signature ABO B 10/10/2016 [facility] 6:33 PM CDT [facility] RH(D) Pos [facility] Antibody Neg 10/10/2016 [facility] Screen 6:33 PM CDT [facility] Test Valid University 10/10/2016 [facility] 4:54 PM CDT [facility] [facility] Specimen 10/13/2016 10/10/2016 [facility] Expires 4:54 PM CDT [facility] Specimen Anatomical Collection Method Collection Time Receive d Time (Source) Location / / Volume Laterality Blood specimen 10/10/2016 1:52 PM 017 1:56 (specimen) CDT PM CDT Violeta Fagan APRN, CNM LAB - BLOOD BANK TEST ORD ER Performing Organization Address City/[facility] Code Phon e Number [address] [address] [facility] 25- [place]-Vitamin D (10/10/2016 1:52 PM CDT) P athologist Signature Vitamin D 51 20 - 75 10/11/2016 [facility] Deficiency ug/L 1:18 PM CDT [facility] Comment: Season, race, dietary intake, and treatm ent affect the concentration of 22-eqobkfn-Jhkgmgk D. Values may decreas e during winter months and increase during summer months. Values 20-29 ug/L may indicate Vitamin D insufficiency and values <20 ug/L may indicate Vitamin D deficiency. Vitamin D determination is routinely per formed by an immunoassay specific for 25 hydroxyvitamin D3. ??If an individual is on vitamin D2 (ergocalciferol) supplementation, please specify 25 [place] vi tamin D2 and D3 level determination by LCMSMS test VITD23. Specimen Anatomical Collection Method Collection Time Receive d Time (Source) Location / / Volume Laterality Blood specimen 10/10/2016 1:52 PM 017 1:55 (specimen) CDT PM CDT Violeta Fagan APRN, CNM LAB - BLOOD ORDERABLES Performing Organization Address City/State/ZIP Code Phon e Number [facility] [address] documented in this encounter Visit Diagnoses Diagnosis Opiate dependence (H) Opioid type dependence, unspecified High-risk , first trimester Hypothyroidism affecting in fi rst trimester Chronic hepatitis C without hepatic coma (H) documented in this encounter Care Teams Unit Control Clerk Relationship Specialty Start Date End Date Clinic, [facility] PCP - General 07/14/16 12/06/[address] [place], [place] [address] [address] documented as of this encounter
--- OUTSIDE RECORDS SUMMARY | 2021-11-10 00:44 | XMS_ITS | Encounter Summary ---
:1980 Author Organization [place] Address [address] 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 Staff placed form in abstract bin. Lupe Lantigua MA Telephone Encounter - Lupe Lantigua CMA - 10/11/2016 9:47 AM CDT Staff submitted PA for Wellbutrin 150MG ER tablets Qty#60 per 30 days via CoverMyMeds. Staff requested PA URGENT. Staff is waiting for a response. Lupe Lantigua MA Telephone Encounter - Dora Merchant - 10/11/2016 8:43 AM CDT Fax received 10/10/16 Prior Authorization needed on: 10/11/16 Medication: WELLBUTRIN SR Dose: 150 MG Pharmacy confirmed as [facility] - [place], [place] - [address] [place] [address] Insurance Name: Medicaid Insurance Phone: not legible Insurance [employer] Assembler placed form in Dr. Alfredo's folder Dora Merchant October 11, 2016 at 8:43 AM documented in this encounter Plan of Treatment Upcoming Encounters Date Type Specialty Care Team Description 11/15/2021 Office Visit Wound Care Luis Camara DPM [address] [place] [address] (Wo rk) documented as of this encounter Visit Diagnoses Not on filedocumented in this encounter Care Teams Special Forces Senior Sergeant Relationship Specialty Start Date End Date Clinic, [facility] PCP - General 07/14/16 12/06/[address] [place] [phone] documented as of this encounter
--- OUTSIDE RECORDS SUMMARY | 2021-11-10 00:45 | XMS_ITS | Encounter Summary ---
:1980 Author Organization [place] Address [address] [place] [address] Care Team Providers Name Role Phone System, Provider Not In Primary Care Provider Unavailable Reason for Visit Reason Onset Date Comments Medication Request 06/19/2016 Suboxone Encounter Details Date Type Department Care Team Description 06/19/2016 Telephone [facility] Edgar Alfredo, [facility] ication Request Clinic Ashly VÁSQUEZ (Suboxone ) [address] [place] [address] [place] [phone] (Wo rk) Social History Tobacco Use Types Packs/Day Years Used Date Current Every Day Smoker Cigarettes 0.1 10 Smokeless Tobacco: Never Used Comments: 5 cigarettes a day Alcohol Use Standard Drinks/Week Comments No 0 (1 standard drink = 0.6 oz pure alcoho l) Sex Assigned at Date Recorded Female 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 Pt would like script sent to: [place], [place] - [address] [facility] Dora Merchant [employer]ach documented in this encounter Plan of Treatment Upcoming Encounters Date Type Specialty Care Team Description 11/15/2021 Office Visit Wound Care Luis Camara, [place] [address] [place] [phone] (Wo rk) documented as of this encounter Visit Diagnoses Diagnosis Uncomplicated opioid dependence (H) - Pr imary Opioid type dependence, unspecified documented in this encounter Care Teams Account Resolution Expert Relationship Specialty Start Date End Date System, Provider Not In PCP - General Clinic 08/12/14 07/13/16 documented as of this encounter
--- OUTSIDE RECORDS SUMMARY | 2021-11-10 00:45 | XMS_ITS | Encounter Summary ---
:1980 Author Organization [facility] Address [address] [place] [id number] Care Team Providers Name Role Phone Clinic, [facility] Primary Care Provide r Reason for Visit Reason Comments Vaginal Bleeding Encounter Details Date Type Department Care Team Description 07/28/2016 Emergency [facility] Christopher Ji ed miscarriage in early ; [facility] Emergency Dep zuhair Slater MD Spontaneous miscarriage [address] [facility] [place], [place] [address] [facility] [phone] [place], [place] [address] (Wo rk) Social History Tobacco Use Types Packs/Day Years Used Date Current Every Day Smoker Cigarettes 0.1 10 Smokeless Tobacco: Never Used Comments: 5 cigarettes a day Alcohol Use Standard Drinks/Week Comments No 0 (1 standard drink = 0.6 oz pure alcoho l) Sex Assigned at Date Recorded Female 01/14/2020 10:57 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 There are no other interventions for bleeding at this time. If you persist to bleed heavily please return to the ER, or if you have a fever. Please folow up with your physician to discuss and bleeding. Your ultrasound shows that one of your two pregnancies will not take, and will miscarry. We cannot intervene on this at this time. Discharge Instructions Vaginal Bleeding in Bleeding in early can be a sign of a miscarriage in process or an abnormal , but often is innocent and the will continue normally. We may do blood tests and ultrasound to try to determine what is causing the bleeding in your case, but sometimes we can't tell and need to follow you with time, more blood tests, and another ultrasound. Return to the Emergency Department if: ??? You have severe abdominal or pelvic pain. ??? You faint, or feel lightheaded or dizzy. ??? Your bleeding is gets much worse, and is heavier than a heavy period or if you pass any blood clots larger than a quarter. ??? You pass any tissue--solid material that doesn't appear smooth and even like a blood clot. If you pass tissue, save it (even if you have to pull it out of the toilet) and put it in a plastic bag orjar and bring it in. ??? You have a fever of 100.5 degrees or higher. If no could be seen: ??? It may be that everything is normal and it is just too early to see the , but you couldhave an ectopic , which is a in an abnormal location, such as in the tube. An ectopic can cause severe internal bleeding or . ??? You need to be seen by your regular doctor, or an MANUFACTURING LEAD doctor, in 48-72 hours for a repeat blood test. ??? You should not be alone, in case you suddenly become very sick. ??? You should not have sex or put anything in your vagina. If a was seen in your uterus: ??? If a heartbeat could be seen, the chance of miscarriage is much lower. ??? You need to see your regular doctor, or an MANUFACTURING LEAD doctor, within 2-3 days. ??? You should not have sex or put anything in your vagina. Facts about miscarriage: We hope you don't have a miscarriage, but if you do, here are important things to know: ??? Early miscarriage is very common, and having one miscarriage doesn't mean you will have problemswith another . ??? Nothing you did caused it. Taking medicine, drinking alcohol, having sex, exercising, or fallingdown won't cause a miscarriage. If you were given a prescription for [...] call or return to the Emergency Department. Opioid Medication Information Pain medications are among the most commonly prescribed medicines, so we are including this information for all our patients. If you did not receive pain medication or get a prescription for pain medicine, you can ignore it. You may have been given a prescription for an opioid (narcotic) pain medicine and/or have received apain medicine while here in the Emergency Department. These medicines can make you drowsy or impaired. You must not drive, operate dangerous equipment, or engage in any other dangerous activities whiletaking these medications. If you drive while taking these medications, you could be arrested for DUI, or driving under the influence. Do not drink any alcohol while you are taking these medications. Opioid pain medications can cause addiction. If you have a history of chemical dependency of any type, you are at a higher risk of becoming addicted to pain medications. Only take these prescribed medications to treat your pain when all other options have been tried. Take it for as short a time and asfew doses as possible. Store your pain pills in a secure place, as they are frequently stolen and provide a dangerous opportunity for children or visitors in your house to start abusing these powerful medications. We will not replace any lost or stolen medicine. As soon as your pain is better, you should flush all your remaining medication. Many prescription pain medications contain Tylenol?? (acetaminophen), including Vicodin??, Tylenol #3??, [place]??, Lortab??, and Percocet??. You should not take any extra pills of Tylenol?? if you are using these prescription medications or you can get very sick. Do not ever take more than 3000 mg of acetaminophen in any 24 hour period. All opioids tend to cause constipation. Drink plenty of water and eat foods that have a lot of fiber, such as fruits, vegetables, prune juice, apple juice and high fiber cereal. Take a laxative if you don???t move your bowels at least every other day. Miralax??, Milk of Magnesia, Colace??, or Senna?? can be used to keep you regular. Remember that you can always come back [...] Place 1 tablet (2 140 tablet 1 02/201608/12/2016 MG SUBL sublingual mg) under the tabletIndications: tongue 5 times Uncomplicated opioid daily dependence (H) buprenorphine HCl-naloxone Place 1 Film under 140 Film 1 0 06/19/2016 08/12/2016 HCl (SUBOXONE) 2-0.5 MG the tongue 5 times per filmIndications: daily Uncomplicated opioid dependence (H) buprenorphine HCl-naloxone Place 1 Film under 25 Film 0 0 06/13/2016 07/02/2017 HCl (SUBOXONE) 2-0.5 MG the tongue 5 times per filmIndications: daily Uncomplicated opioid dependence (H) DiphenhydrAMINE HCl Take by mouth as 0 07/04/2018 (BENADRYL ALLERGY PO) needed Ferrous Sulfate (IRON) 325 Take 1 tablet by 0 08/29/2016 (65 FE) MG tablet mouth 2 times daily folic acid (FOLVITE) 1 MG Take 1 tablet (1 100 tablet 3 06/1801/31/2018 tablet mg) by mouth daily levothyroxine (SYNTHROID, Take 1 tablet by 0 01/31/2018 LEVOTHROID) 125 MCG tablet mouth daily loratadine (CLARITIN) 10 Take 1 tablet (10 30 tablet 1 10/1808/29/2016 MG tabletIndications: mg) by mouth daily Seasonal allergic rhinitis OMEPRAZOLE PO Take by mouth 0 11/30/19 17 daily Take 1 tablet by 30 tablet 6 12/10/2012 08/30/19 17 Vfgevlmu-Fmu-Tn-FA mouth daily ( VITAMINS) 0.8 MG TABSIndications: Opiate dependence (H) venlafaxine (EFFEXOR-XR) Take 2 capsules 60 capsule 1 201501/31/2018 150 MG 24 hr (300 mg) by mouth capsuleIndications: Major daily depressive disorder, recurrent episode, moderate (H) WELLBUTRIN SR 150 MG 12 hr Take 1 tablet (150 60 tablet 1 0 06/17/2016 08/12/2016 tabletIndications: Major mg) by mouth 2 depressive disorder, times daily recurrent episode, moderate (H), Uncomplicated opioid dependence (H) documented as of this encounter ED Notes Erum Winter RN - 07/28/2016 10:14 AM CDT Patient states that she is currently 8 weeks with twins. She states that she has been passing large clots since 0300 this morning. Christopher Ji MD - 07/28/2016 10:03 AM CDT Images from the original note were not included. History Chief Complaint: Vaginal bleeding HPI Stephani King is a 35 year old female, 8 weeks with twins, with a history of opioid dependence, who presents for evaluation of heavy vaginal bleeding. About 2 weeks ago, the patient experienced a previous episode of vaginal bleeding, which lasted about 12 hours. was then categorized as high risk. She began experiencing vaginal bleeding again this morning, starting about 7 hours ago, with increased bleeding, passing 6-7 clots, and soaking through 2+ pads an hour and prompting hervisit to the ED. Here, she does not complain of much pain, only light lower abdominal pain. Patient has an appointment with an OB scheduled in 4 days. Of note, this is the patient's 9th and has a history of early miscarriage. Allergies: The patient has no known drug allergies. Medications: Folic acid (folvite) 1 mg tablet Buprenorphine hcl-naloxone hcl (suboxone) 2-0.5 mg per film Wellbutrin sr 150 mg 12 hr tablet Buprenorphine (subutex) 2 mg subl sublingual tablet Buprenorphine hcl-naloxone hcl (suboxone) 2-0.5 mg per film Loratadine (claritin) 10 mg tablet Venlafaxine (effexor-xr) 150 mg 24 hr capsule Ferrous sulfate (iron) 325 (65 fe) mg tablet Diphenhydramine hcl (benadryl allergy po) Omeprazole po Levothyroxine (synthroid, levothroid) 125 mcg tablet zmffomri-qdu-kv-fa ( vitamins) 0.8 mg tabs [discontinued] vitamins po Past Medical History: Anxiety Depressive disorder Uncomplicated opioid dependence (H) Past Surgical History: Breast surgery 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 Review of Systems Gastrointestinal: Positive for abdominal pain. Genitourinary: Positive for vaginal bleeding. All other systems reviewed and are negative. Physical Exam First Vitals: BP: 104/59 Temp: 98.2 ??F (36.8 ??C) Temp src: Oral Pulse: 89 Resp: 18 SpO2: 98 % (07/28 1017-07/28 1045) Physical Exam Constitutional: She is oriented to person, place, and time. She appears well-developed. HENT: Head: Normocephalic and atraumatic. Right Ear: External ear normal. Mouth/Throat: Oropharynx is clear and moist. Eyes: Conjunctivae and EOM are normal. Pupils are equal, round, and reactive to light. Neck: Normal range of motion. Neck supple. No JVD present. Cardiovascular: Normal rate, regular rhythm and normal heart sounds. Pulmonary/Chest: Effort normal and breath sounds normal. Abdominal: Soft. Bowel sounds are normal. She exhibits no distension. There is no tenderness. There is no rebound. Genitourinary: Musculoskeletal: Normal range of motion. Lymphadenopathy: She has no cervical adenopathy. Neurological: She is alert and oriented to person, place, and time. She displays normal reflexes. Nocranial nerve deficit. She exhibits normal muscle tone. Coordination normal. Skin: Skin is warm and dry. Psychiatric: She has a normal mood and affect. Her behavior is normal. Judgment normal. Nursing note and vitals reviewed. Emergency Department Course Imaging: Radiographic findings were communicated with the patient who voiced understanding of the findings. OB US, 1st trimester, with transvaginal, per radiology: 1. Two gestational sacs again identified. Twin B pole without cardiac activity compatible with demise. The sac size and pole size for twin B is smaller than twin A. 2. Fundal subchorionic hemorrhage. 3. Viable twin A gestation with pole 8 week 3 day size corresponding to a 03/06/2017 estimated date of delivery. Estimated date of delivery on the prior 07/14/2016 ultrasound was 03/07/2017 compatible with appropriate interval growth. Laboratory: CBC: WBC 7.1, HGB 11.7, PLT 195 HCG Quantitative blood: 02259 (H) Rh type: B, RH(D) Pos Emergency Department Course: Nursing notes and vitals reviewed. I performed an exam of the patient as documented above. The above workup was undertaken. 1105: I performed a pelvic exam. 1233: Discussed the patient with Dr. Sanchez from [facility]. 1355: I rechecked the patient and discussed results. Findings and plan explained to the Patient. Patient discharged home, status improved, with instructions regarding supportive care, medications, and reasons to return as well as the importance of close follow-up was reviewed. Impression & Plan Medical Decision Making: Stephani King is a 35 year old female who presents with heavy vaginal bleeding. Patient is known to have an intrauterine twin . A vaginal exam shows a closed cervix with moderate bleeding and moderate clots. Patient's HGB is stable. US confirms persistent intrauterine pregnancies, however, patient continues to have heavy bleeding. We will discuss this with Maternal Medicine. I do notbelieve that there is any interventions at this time. Patient has had early miscarriage in the past and this could be warning signs of that. For now, we will offer recommendations for Maternal Medicine and either discharge home or offer treatment as per their recommendations. Diagnosis: 1. Threatened miscarriage Disposition: discharged to home Simone Powers, am serving as a scribe on 07/28/2016 at 10:07 AM to personally document services performed by Christopher Ji MD, based on my observations and the provider's statements to me. [facility] Christopher Ji MD 08/03/162006 documented in this encounter Plan of Treatment Upcoming Encounters Date Type Specialty Care Team Description 11/15/2021 Office Visit Wound Care Hoa Luis Lex, DPM [address] [place] [address] (Wo rk) documented as of this encounter Procedures Procedure Name Priority Date/Time Associated Comments Diagnosis US OB <14 WEEKS WITH STAT 07/28/2016 12:16 Res ults for this TRANSVAGINAL SINGLE PM CDT procedur e are in the results section. CBC WITH PLATELETS & STAT 07/28/2016 10:25 Res ults for this DIFFERENTIAL AM CDT procedure are i n the results section. RH TYPE STAT 07/28/2016 10:25 Results for this AM CDT procedure are i n the results section. RH IMMUNE GLOBULIN STAT 07/28/2016 10:25 Resul ts for this SCREEN AM CDT procedure are i n the results section. HCG QUANTITATIVE STAT 07/28/2016 10:25 Results for this AM CDT procedure are i n the results section. RHOGAM ORDER Routine 07/28/2016 10:24 Results for this AM CDT procedure are i n the results section. documented in this encounter Results OB US 1st trimester w transvag (07/28/2016 12:16 PM CDT) Anatomical Region Laterality Modality Abdomen/Pelvis Ultrasound Specimen (Source) Anatomical Location Collection Method / Collectio n Time Received Time / Laterality Volume Impressions 07/28/2016 4:06 PM CDT IMPRESSION: 1. Two gestational sacs again identified . Twin B pole without cardiac activity compatible with d emise. The sac size and pole size for twin B is smaller than twi n A. 2. Fundal subchorionic hemorrhage. 3. Viable twin A gestation with po le 8 week 3 day size corresponding to a 03/06/2017 estimated d ate of delivery. Estimated date of delivery on the prior 07/14/2016 ultrasound was 03/07/2017 compatible with appropriate interval reza wth. CHYNA DORAN MD Narrative 07/28/2016 4:06 PM CDT OBSTETRIC ULTRASOUND LESS THAN 14 WEEKS WITH TRANSVAGINAL SINGLE ?? 07/28/2016 12:16 PM HISTORY: Known twin , heavy ble eding, evaluate for miscarriage. TECHNIQUE: Transabdominal and endovagina l scan to better evaluate gestational sacs. COMPARISON: 07/14/2016 OB ultrasound. FINDINGS: Two gestational sacs identified. Twin A: The presenting gestational sac ( twin A) demonstrates yolk sac and pole with mean sac diameter 3. 6 cm and pole 1.9 cm compatible with 8 week 3 day size. cardiac activity 176 bpm for twin A. Twin B: gestational sac in the superior uterus with mean diameter of 1.1 cm or 5 week 6 day size. Twin B feta l pole is 0.6 cm without cardiac activity compatible with d emise. 3.3 x 2.2 x 1.1 cm subchorionic hemorrha ge in the uterine fundus. Ovaries are not visualized. No adnexal m ass or free fluid. Procedure Note Chyna Doran MD - 07/28/2016For matting of this note might be different from the original. OBSTETRIC ULTRASOUND LESS THAN 14 WEEKS WITH TRANSVAGINAL SINGLE 07/28/2016 12:16 PM HISTORY: Known twin , heavy ble eding, evaluate for miscarriage. TECHNIQUE: Transabdominal and endovagina l scan to better evaluate gestational sacs. COMPARISON: 07/14/2016 OB ultrasound. FINDINGS: Two gestational sacs identified. Twin A: The presenting gestational sac ( twin A) demonstrates yolk sac and pole with mean sac diameter 3. 6 cm and pole 1.9 cm compatible with 8 week 3 day size. cardiac activity 176 bpm for twin A. Twin B: gestational sac in the superior uterus with mean diameter of 1.1 cm or 5 week 6 day size. Twin B feta l pole is 0.6 cm without cardiac activity compatible with d emise. 3.3 x 2.2 x 1.1 cm subchorionic hemorrha ge in the uterine fundus. Ovaries are not visualized. No adnexal m ass or free fluid. IMPRESSION: 1. Two gestational sacs again identified . Twin B pole without cardiac activity compatible with d emise. The sac size and pole size for twin B is smaller than twi n A. 2. Fundal subchorionic hemorrhage. 3. Viable twin A gestation with po le 8 week 3 day size corresponding to a 03/06/2017 estimated d ate of delivery. Estimated date of delivery on the prior 07/14/2016 ultrasound was 03/07/2017 compatible with appropriate interval reza wth. CHYNA DORAN MD Christopher Ji MD IMG US ORDERABLES Rh Immune Globulin Study (07/28/2016 10:25 AM CDT) Patholo gist Method Time Signature ABO B [facility] RH(D) Pos [facility] Blood Canceled, [place] Screen Test [facility] Blood Bank Not suitable for Rh Immune Globulin [place] Comment Patient is Rh positive [facility] Amount of RHIG Not suitable [place] Required for [facility] Globulin Specimen Anatomical Collection Method Collection Time Receive d Time (Source) Location / / Volume Laterality 07/28/2016 10:25 07/28/2016 AM CDT 10:39 AM CDT Christopher Ji MD LAB - BLOOD BANK TEST ORDER Performing Organization Address City/[facility]/ZIP Code Phon e Number M [facility] [address] [place], [place] [address] [facility] [address] [phone] Rh type (07/28/2016 10:25 AM CDT) Analysis Performed At Patho logist Time Signature ABO B [facility] RH(D) Pos [facility] Specimen 07/31/2016 [facility] Specimen Anatomical Collection Method Collection Time Receive d Time (Source) Location / / Volume Laterality Blood specimen 07/28/2016 10:25 7 (specimen) AM CDT 10:31 AM CDT Christopher Ji MD LAB - BLOOD BANK TEST ORDER Performing Organization Address City/[facility]/ZIP Code Phon e Number M [facility] [address], [place] [address] [facility] [address] [place], [place] [address] [facility] [phone] (ABNORMAL) HCG QUANTitative (07/28/2016 10:25 AM CDT) [facility] Method Time Signature HCG Quantitative 77,252 0 - 5 [place] Serum (H) IU/L [facility] Comment: Specimen run with a dilution Specimen Anatomical Collection Method Collection Time Receive d Time (Source) Location / / Volume Laterality Blood specimen 07/28/2016 10:25 7 (specimen) AM CDT 10:30 AM CDT Christopher Ji MD LAB - BLOOD ORDERABLES Performing Organization Address City/State/ZIP Code Phon e Number M [place] [address], [place] [address] [place] [address] [phone] (ABNORMAL) CBC with platelets differential (07/28/2016 10:25 AM CDT) [facility] Method Time Signature WBC 7.1 4.0 - [place] 11.0 [facility] 10e9/L [facility] RBC Count 3.77 (L) 3.8 - 5.2 [place] 10e12/L [facility] Hemoglobin 11.7 11.7 - [place] 15.7 g/dL [facility] Hematocrit 35.6 35.0 - [place] 47.0 % [facility] MCV 94 78 - 100 [facility] MCH 31.0 26.5 - [place] 33.0 pg [facility] MCHC 32.9 31.5 - [place] 36.5 g/dL [facility] RDW 12.9 10.0 - [place] 15.0 % [facility] Platelet Count 195 150 - 450 [place] 10e9/L [facility] Diff Method Automated [facility] % Neutrophils 60.2 % [facility] % Lymphocytes 31.4 % [facility] % Monocytes 4.7 % [facility] % Eosinophils 3.1 % [facility] % Basophils 0.3 % [facility] % Immature 0.3 % [place] Granulocytes [facility] Nucleated RBCs 0 0 /100 [facility] Absolute 4.3 1.6 - 8.3 [place] Neutrophil 10e9/L [facility] Absolute 2.2 0.8 - 5.3 [place] Lymphocytes 10e9/L [facility] Absolute 0.3 0.0 - 1.3 [place] Monocytes 10e9/L [facility] Absolute 0.2 0.0 - 0.7 [place] Eosinophils 10e9/L [facility] Absolute 0.0 0.0 - 0.2 [place] Basophils 10e9/[facility] Abs Immature 0.0 0 - 0.4 [place] Granulocytes [address] [place] [address] Absolute 0.0 [place] Nucleated RBC [facility] Specimen Anatomical Collection Method Collection Time Receive d Time (Source) Location / / Volume Laterality Blood specimen 07/28/2016 10:25 7 (specimen) AM CDT 10:30 AM CDT Christopher Ji MD LAB - BLOOD ORDERABLES Performing Organization Address City/State/ZIP Code Phon e Number M [facility] [address], [place] [address] [place] [address] [address] [place], [place] [address], [facility] [phone] Rho (D) immune globulin (RhoGam) Lab Study (07/28/2016 10:24 AM CDT) [facility] Method Time Signature Rhogam Order Order received [place] See Rhogam Study/[facility] Specimen Anatomical Collection Method Collection Time Receive d Time (Source) Location / / Volume Laterality 07/28/2016 10:24 07/28/2016 AM CDT 10:25 AM CDT Christopher Ji MD LAB - BLOOD BANK PRODUCT ORD ER Performing Organization Address City/[facility]/ZIP Code Phon e Number M [facility] [address] [place], [place] [address] [facility] [address] [place], [place] [address], [facility] [phone] documented in this encounter Visit Diagnoses Diagnosis Threatened miscarriage in early pregnanc y Threatened , unspecified as to e pisode of care Spontaneous miscarriage Unspecified spontaneous without mention of complication documented in this encounter Administered Medications Inactive Administered Medications - up to 3 most recent administrations Medication Order MAR Action Action Date Dose Rate Site Blood Bank will determine if patient is eligible for and the proper dosage of Rho (D) immune globulin (RhoGam) CONTINUOUS PRN, Starting on 07/28/16 at 1018, Until 07/28/16 at 1619, Blood Bank will determine if patient is eligible for and the proper dosage of Rho (D) immune globulin (RhoGam) based on laboratory results a nd will enter appropriate dosing order. If appropriate dose is greater than the standard dose (300 mcg), provider will be notified. NO Rho (D) immune globulin (RhoGam) need ed - mother INELIGIBLE CONTINUOUS PRN, Starting on 07/28/16 at 1101, Until 07/28/16 at 1619, NO Rho (D) immune globulin (RhoGam) needed - mo ther INELIGIBLE. This order was placed by Blood Bank based on Laboratory testing and a provider order. documented in this encounter Active and Recently Administered Medications Times are shown in CDT. PRN Medication Order 07/26/2016 07/27/2016 07/28/2016 Blood Bank will determine if patient is eligible for and the proper dosage of Rho (D) immune globulin (RhoGam) CONTINUOUS PRN, Starting 07/28/16 at 1018, Until 07/28/16 at 1619, Blood Bank will determine if patient is eligible for and the proper dosage of Rho (D) immune globulin (RhoGam) based on laborator y results and will enter appropriate dos ing order. If appropriate dose is greater than the standard dose (300 mcg), provider will be notified. NO Rho (D) immune globulin (RhoGam) needed - mother INELIGIBLE CONTINUOUS PRN, Starting 07/28/16 at 1101, Until 07/28/16 at 1619, NO Rho (D) immune globulin (RhoGam) needed - mother INELIGIBLE. This order was placed by [facility] based on Laboratory testing and a provider order. 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
--- OUTSIDE RECORDS SUMMARY | 2021-11-10 00:45 | XMS_ITS | Encounter Summary ---
:1980 Author Organization [place] Address [facility] 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 documented as of this encounter Last Filed Vital Signs Vital Sign Reading Time Taken Comments Blood Pressure 128/64 08/12/2016 2:34 PM CDT Pulse - - Temperature - - Respiratory Rate 16 08/12/2016 2:34 PM CDT Oxygen Saturation - - Inhaled Oxygen Concentration - - Weight 83.8 kg (184 lb 11.2 oz) 08/12/2016 2:34 PM CDT Height - - Body Mass Index 29.83 08/01/2016 1:43 PM CDT documented in this encounter Progress Notes Edgar Alfredo MD - 08/12/2016 2:00 PM CDT SUBJECTIVE: Stephani King is a 35 year old female who presents to clinic today for the following health issues: OPIOID USE DISORDER - SUBOXONE FOLLOW UP: CURRENT DOSE: 10 MG DAILY WAS TWINS; ONE ; OTHER VIABLE GOING TO MERCHANDISING 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 FEELING OK SUBUTEX DOSE OK NO CRAVING, CONTRACTIONS DISCUSSED Status since last [...] been going to recovery meetings:not at all. [place] Board [employer] Pharmacy Data Base Reviewed: YES; NO ISSUES; CHECKED 08/12/16 Problem list and histories reviewed & adjusted, [...] BREAST SURGERY ABcess drained ??? SECTION ??? WEAPONS ELECTRICAL ENGINEERING OFFICER SURGERY ??? ORTHOPEDIC SURGERY ??? THORACIC SURGERY [...] Outpatient Prescriptions Medication Sig Dispense Refill ??? WELLBUTRIN SR 150 MG 12 hr tablet Take 1 tablet (150 mg) by mouth 2 times daily 60 tablet 1 ??? buprenorphine (SUBUTEX) 2 MG SUBL sublingual tablet Place 1 tablet (2 mg) under the tongue 5 times daily 140 tablet 1 ??? diphenhydrAMINE (BENADRYL ALLERGY) 25 MG tablet Take 1 tablet (25 mg) by mouth every 8 hours as needed for itching or allergies 60 tablet 1 ??? folic acid (FOLVITE) 1 MG tablet Take 1 tablet (1 mg) by mouth daily 100 tablet 3 ??? [DISCONTINUED] WELLBUTRIN SR 150 MG 12 hr tablet Take 1 tablet (150 mg) by mouth 2 times daily 60 tablet 1 ??? buprenorphine HCl-naloxone HCl (SUBOXONE) 2-0.[address] 1 Film under the tongue 5 times daily 25 Film 0 ??? loratadine (CLARITIN) 10 MG tablet Take 1 tablet (10 mg) by mouth daily 30 tablet 1 ??? venlafaxine (EFFEXOR-XR) 150 MG 24 hr capsule Take 2 capsules (300 mg) by mouth daily 60 capsule1 ??? Ferrous Sulfate (IRON) 325 (65 FE) MG tablet Take 1 tablet by mouth 2 times daily ??? DiphenhydrAMINE HCl (BENADRYL ALLERGY PO) Take by mouth as needed ??? OMEPRAZOLE PO Take by mouth daily ??? levothyroxine (SYNTHROID, LEVOTHROID) 125 MCG tablet Take 1 tablet by mouth daily ??? Volnvnth-Zge-Dd-FA ( VITAMINS) 0.8 MG TABS Take 1 tablet by mouth daily 30 tablet 6 ??? [DISCONTINUED] VITAMINS PO Take by mouth. No Known Allergies Labs reviewed in EPIC OBJECTIVE: BP 128/64 Resp 16 Wt 184 lb 11.2 oz (83.8 kg) LMP 05/24/2016 (Approximate) BMI 29.83 kg/m2 Body mass index is 29.83 kg/(m^2). ROS: Constitutional, HEENT, cardiovascular, pulmonary, gi [...] orders placed or performed in visit on 08/12/16 Urine Drugs of Abuse Screen Panel 13 Result Value Ref Range Cannabinoids ([id number]) NDET ng/mL Not Detected Cutoff for a negative cannabinoid is 50 ng/mL or less. Phencyclidine (Phencyclidine) NDET ng/mL Not Detected Cutoff for a negative PCP is 25 ng/mL or less. Cocaine (Benzoylecgonine) NDET ng/mL Not Detected Cutoff for a negative cocaine is 150 ng/ml or less. Methamphetamine (d-Methamphetamine) NDET ng/mL Not Detected Cutoff for a negative methamphetamine is 500 ng/ml or less. Opiates (Morphine) NDET ng/mL Not Detected Cutoff for a negative opiate is 100 ng/ml or less. Amphetamine (d-Amphetamine) NDET ng/mL Not Detected Cutoff for a negative amphetamine is 500 ng/mL or less. Benzodiazepines (Nordiazepam) NDET ng/mL Not Detected Cutoff for a negative benzodiazepine is 150 ng/ml or less. Tricyclic Antidepressants (Desipramine) NDET ng/mL Not Detected Cutoff for a negative tricyclic antidepressant is 300 ng/ml or less. Methadone (Methadone) NDET ng/mL Not Detected Cutoff for a negative methadone is 200 ng/ml or less. Barbiturates (Butalbital) NDET ng/mL Not Detected Cutoff for a negative barbituate is 200 ng/ml or less. Oxycodone (Oxycodone) NDET ng/mL Not Detected Cutoff for a negative Oxycodone is 100 ng/mL or less. Propoxyphene (Norpropoxyphene) NDET ng/mL Not Detected Cutoff for a negative propoxyphene is 300 ng/ml or less Buprenorphine (Buprenorphine) (A) NDET ng/mL Detected, Abnormal Result Cutoff for a positive buprenorphine is greater than 10 ng/ml. This is an unconfirmed screening result to be used for medical purposes only. Order [id number] for confirmation or individual confirmation tests to [facility]. 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 YES Drug being monitored: Suboxone Reason for drug: Opioid Use Disorder What is being monitored?: Dosage, Cravings, Trigger, side effects, and continued abstinence. PLAN: ICD-10-CM 1. Uncomplicated opioid dependence (H) F11.20 Urine Drugs of Abuse Screen Panel 13 WELLBUTRIN SR 150 MG 12 hr tablet buprenorphine (SUBUTEX) 2 MG SUBL sublingual tablet DISCONTINUED: buprenorphine HCl-naloxone HCl (SUBOXONE) 2-0.5 MG per film 2. Major depressive disorder, recurrent episode, moderate (H) F33.1 WELLBUTRIN SR 150 MG 12 hr tablet MEDICATIONS: Orders Placed This Encounter Medications ??? DISCONTD: buprenorphine HCl-naloxone HCl (SUBOXONE) 2-0.5 MG per film Sig: Place 1 Film under the tongue 5 times daily Dispense: 140 Film Refill: 1 ??? WELLBUTRIN SR 150 MG 12 hr tablet Sig: Take 1 tablet (150 mg) by mouth 2 times daily Dispense: 60 tablet Refill: 1 ??? buprenorphine (SUBUTEX) 2 MG SUBL sublingual tablet Sig: Place 1 tablet (2 mg) under the tongue 5 times daily Dispense: 140 tablet Refill: 1 - Continue other medications without change FUTURE APPOINTMENTS: - Follow-up visit in 2 MONTHS Edgar Alfredo MD [facility] documented in this encounter Plan of Treatment Upcoming Encounters Date Type Specialty Care Team Description 11/15/2021 Office Visit Wound Care Luis Camara, [address] [place] [address] (Wo rk) documented as of this encounter Procedures Procedure Name Priority Date/Time Associated Diagnosis Comme nts URINE DRUGS OF Routine 08/12/2016 2:28 PM Uncomplicated opioid Results for this ABUSE SCREEN PANEL CDT dependence (H) procedu re are in 13 the results section. documented in this encounter Results (ABNORMAL) Urine Drugs of Abuse Screen Panel 13 (08/12/2016 2:28 PM CDT) Component Value Ref Test Analysis Performed Pathologis t Range Method Time At Signature Cannabinoids Not Detected NDET LAB (76-ish-5-carboxy- Cutoff for a negative cannabinoid is 50 ng/mL or less. ng/mL 9-THC) Phencyclidine Not Detected NDET LAB (Phencyclidine) Cutoff for a negative PCP is 25 ng/mL or less. ng/mL Cocaine Not Detected NDET LAB (Benzoylecgonine) Cutoff for a negative cocaine is 150 ng/ml or less. ng/mL Methamphetamine Not Detected NDET LAB (d-Methamphetamine Cutoff for a negative methamphetamine i s 500 ng/ml or less. ng/mL ) Opiates (Morphine) Not Detected NDET LAB Cutoff for a negative opiate is 100 ng/ml or less. ng/mL Amphetamine Not Detected NDET LAB (d-Amphetamine) Cutoff for a negative amphetamine is 500 ng/mL or less. ng/mL Benzodiazepines Not Detected NDET LAB (Nordiazepam) Cutoff for a negative benzodiazepine is 150 ng/ ml or less. ng/mL Tricyclic Not Detected NDET RJ LAB Antidepressants Cutoff for a negative tricy clic antidepressant is 300 ng/ml or less. ng/mL (Desipramine) Methadone Not Detected NDET LAB (Methadone) Cutoff for a negative methadone is 200 ng/ml or less. ng/ mL Barbiturates Not Detected NDET LAB (Butalbital) Cutoff for a negative barbituate is 200 ng/ml or less. n g/mL Oxycodone Not Detected NDET LAB (Oxycodone) Cutoff for a negative Oxycodone is 100 ng/mL or less. ng/ mL Propoxyphene Not Detected NDET RJ LAB (Norpropoxyphene) Cutoff for a negative propoxyphene is 3 00 ng/ml or less ng/mL Buprenorphine Detected, Abnormal Result NDET [facility]J LAB (Buprenorphine) Cutoff for a positive buprenorphine is greater than 10 ng/ml. ng/mL This is an unconfirmed screening result to be used for medical purposes only. Order [id number] for confirmation or individual confirmation tests to [facility]. (A) Specimen Anatomical Collection Method Collection Time Receive d Time (Source) Location / / Volume Laterality Urine specimen 08/12/2016 2:28 PM 017 2:29 (specimen) CDT PM CDT Edgar Alfredo MD LAB - URINE ORDERABLES Performing Organization Address City/State/[place] [address] [facility] [address] [address] [facility] [address] [facility] documented in this encounter Visit Diagnoses Diagnosis Uncomplicated opioid dependence (H) Opioid type dependence, unspecified Major depressive disorder, recurrent epi sode, moderate (H) Major depressive disorder, recurrent epi sode, moderate documented in this encounter Care Teams Material Worker Relationship Specialty Start Date End Date Clinic, [facility] PCP - General 07/14/16 12/06/[address] [place] [address] documented as of this encounter
--- OUTSIDE RECORDS SUMMARY | 2021-11-10 00:45 | XMS_ITS | Encounter Summary ---
:1980 Demographics Address [address] [place] [address] Mobile Phone Home Phone Mobile Phone Email Address [employer] Preferred Language Hungarian Marital Status Uatsdin Affiliation Wiccan/Bustamante Race White Ethnic Group Unknown Author Organization [place] Address [address] 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 Patient is . Staff called Medicaid at submitted PA for SUBUTEX tablets. Staff was informed patients insurance change tomorrow August 17, 2016 and if PA is approved it will only be approve for 1 day. Staff called [facility] at [phone]. Staff informed pharmacist regarding the above information and stated he will be working late [facility] and he will run the PA jaguar. Lupe Lantigua MA Telephone Encounter - Mark Roldan - 08/16/2016 12:49 PM CDT Prior Authorization: APPROVED Approved as of: 08/12/16 thru 08/16/16 Mark Roldan August 16, 2016 at 12:51 PM Telephone Encounter - Sarah Calvert MA - 08/16/2016 8:54 AM CDT Prior Authorization has been submitted via cover meds as urgent request beatty #[id number] Staff will call plan later today at [phone] to follow up Sarah Calvert MA Telephone Encounter - Dora Merchant - 08/16/2016 7:52 AM CDT Covermymeds Beatty: [id number] Dora Merchant Unit Aide Telephone Encounter - Mark Roldan - 08/15/2016 12:54 PM CDT Prior Authorization needed on: [place] Medication: Subutex Dose: 2 mg Insurance Name: [place] Insurance Phone: Not listed Insurance Apple Checker placed form in provider's folder. Mark Roldan August 15, 2016 at 12:55 PM documented in this encounter Plan of Treatment Upcoming Encounters Date Type Specialty Care Team Description 11/15/2021 Office Visit Wound Care Luis Camara, [address] [place] [address] (Wo rk) documented as of this encounter Visit Diagnoses Not on filedocumented in this encounter Care Teams Dethistler Operator Relationship Specialty Start Date End Date Clinic, [facility] PCP - General 07/14/16 12/06/[address] [place] [address] [phone] documented as of this encounter
--- OUTSIDE RECORDS SUMMARY | 2021-11-10 00:45 | XMS_ITS | Encounter Summary ---
:1980 Author Organization [place] Address [facility] [place] [address] Care Team Providers Name Role Phone Clinic, [facility] Primary Care Provide r Reason for Visit - Closed Specialty Diagnoses / Procedures Referred By Contact Refer red To Contact Diagnoses Supervision of high-risk , first trimester Ur Maternal Med [address] [place] [phone] Referral ID Status Reason Start Date Expiration Date Visits Requ ested Visits Authorized [id number] Closed 08/22/2016 08/22/2017 1 1 Encounter Details Date Type Department Care Team Description 09/03/2016 Office Visit [facility] Ilana Patel MD [address] [address] Canceled (Patient) Maternal Petrona Barone DO [address] [facility] [address] [place], [place] [phone] [facility] [place] [address] [place], [place] 16 Social History Tobacco Use Types Packs/Day Years [...] at Date Recorded Female 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
--- OUTSIDE RECORDS SUMMARY | 2021-11-10 00:45 | XMS_ITS | Encounter Summary ---
:1980 Author Organization [place] Address [address] [facility] 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 Telephone Encounter - Nicole Borjas - 08/12/2016 3:04 PM CDT Please do not close this encounter until this has been addressed. (prior auth approved/denied, prescriber refusal to complete prior auth or medication changed/discontinued) Prior Authorization needed on: Subutex 2mg Drug NDC: [id number] Insurance: [employer] 340B Rx BIN: [id number] Insurance phone #: Pharmacy Pharmacy Phone #: [phone] Pharmacy Fax #: [phone] Please let us know if the PA gets approved or denied or if medication is changed. Thank You, Nicole Borjas, [facility] documented in this encounter Plan of Treatment Upcoming Encounters Date Type Specialty Care Team Description 11/15/2021 Office Visit Wound Care Luis Camara, [address] [place] [address] (Wo rk) documented as of this encounter Visit Diagnoses Not on filedocumented in this encounter Care Teams Investigation Lieutenant Relationship Specialty Start Date End Date Clinic, [facility] PCP - General 07/14/16 12/06/[address] [place] [address] [phone] documented as of this encounter
--- OUTSIDE RECORDS SUMMARY | 2021-11-10 00:45 | XMS_ITS | Encounter Summary ---
:1980 Author Organization [place] Address [address] [facility] 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 Telephone Encounter - May Magallanes, GENARO - 09/02/2016 8:53 AM CDT ----- Message from Mark Turner APRN CNM sent at 08/29/2016 6:33 PM CDT ----- Can we call Stephani and get her re-scheduled for new OB visit [place]? I received a call from [facility] ED , where patient was being seen for vaginal bleeding after intercourse, so she should have follow-up in clinic. Complex medical and obstetric history. Thanks, [place] documented in this encounter Plan of Treatment Upcoming Encounters Date Type Specialty Care Team Description 11/15/2021 Office Visit Wound Care Luis Camara, [address] [place] [address] (Wo rk) documented as of this encounter Visit Diagnoses Not on filedocumented in this encounter Care Teams Telephone Messenger Relationship Specialty Start Date End Date Clinic, [facility] PCP - General 07/14/16 12/06/[address] [place] [address] documented as of this encounter
--- OUTSIDE RECORDS SUMMARY | 2021-11-10 00:45 | XMS_ITS | Encounter Summary ---
:1980 Author Organization [place] Address [address] [facility] [place] [address] Care Team Providers Name Role Phone Clinic, [facility] Primary Care Provide r Reason for Visit Reason Onset Date Comments Abnormal Uterine Bleeding 08/29/2016 13 we eks today. 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 [facility]. Tremayne Gilmore RN Telephone Encounter - Tremayne Price RN - 08/29/2016 1:41 PM CDT Pt called back to get scheduled for an US. Pt states she is bleeding very heavily, she states she is wear adult depends and had to change them 5 minutes apart. Pt advised to come into the [facility] ED with that heavy of bleeding. Pt is other line with [facility] trying to arrange a ride to the Hospital. She will call me back if not able to get ride. Tremayne Gilmore RN Telephone Encounter - Thais Morris LPN - 08/29/2016 1:35 PM CDT Phone call from Rn at [facility] patient would like to be evaluated there as it is closer to home. Is having bleeding with clots- will order a viability ultrasound. Twin but twin b wasa demise at 8 weeks scan. currently 13 weeks with bleeding and clots. Orders for viabilityultrasound placed. Tremayne will call patient and have her come in for evaluation. Telephone Encounter - Tremayne Price RN - 08/29/2016 1:28 PM CDT Pt had last seen Violeta Fagan for OB Care. She called our office today as we are closed to her. Pt states she started to bleed about 15 minutes ago, blood with some clots quarter size, is upset, she is considered a high risk. I will call Violeta Fagan about this and she can write orders and they could be done here. Address Phone Fax E-Mail Primary [facility] [address] [facility] [address] ?? with Twins but at 8 weeks documented in this encounter Plan of Treatment Upcoming Encounters Date Type Specialty Care Team Description 11/15/2021 Office Visit Wound Care Luis Camara, [address] [place] [address] (Wo rk) documented as of this encounter Visit Diagnoses Diagnosis Vaginal bleeding in patient at less than 20 weeks gestation - Primary documented in this encounter Care Teams Groundskeeper Supervisor Relationship Specialty Start Date End Date Clinic, [facility] PCP - General 07/14/16 12/06/[address] [place] [address] documented as of this encounter
--- OUTSIDE RECORDS SUMMARY | 2021-11-10 00:45 | XMS_ITS | Encounter Summary ---
:1980 Author Organization [place] Address [address] [place] [address] Care Team Providers Name Role Phone Clinic, [facility] Primary Care Provide r Reason for Visit Reason Onset Date Comments Medication Request 07/16/2016 Encounter Details Date Type Department Care Team Description 07/16/2016 Telephone [facility] Edgar Alfredo Ma, Medication Request [place] [address] [place] [phone] (Reinaldo rk) Social History Tobacco Use Types Packs/Day Years Used Date Current Every Day Smoker Cigarettes 0.1 10 Smokeless Tobacco: Never Used Comments: 5 cigarettes a day Alcohol Use Standard Drinks/Week Comments No 0 (1 standard drink = 0.6 oz pure alcoho l) Sex Assigned at Date Recorded Female 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 Pharmacy of choice: [facility] - [place], [place] - [address] Phone Number Patient can be reached at: Home number on file [phone] (home) Best Time: Anytime Can we leave a detailed message on this number? YES Call taken on 07/16/2016 at 2:10 PM by Dora Merchant documented in this encounter Plan of Treatment Upcoming Encounters Date Type Specialty Care Team Description 11/15/2021 Office Visit Wound Care Luis Camara DPM [address] [place] [phone] (Wo rk) documented as of this encounter Visit Diagnoses Not on filedocumented in this encounter Care Teams Beauty Director Relationship Specialty Start Date End Date Clinic, [facility] Medical PCP - General 07/14/16 12/06/[address] [place] [address] documented as of this encounter
--- OUTSIDE RECORDS SUMMARY | 2021-11-10 00:45 | XMS_ITS | Encounter Summary ---
:1980 Author Organization [place] Address [address] 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 This study was done transvaginally. Measurements CRL = 22.9 mm = 9 0/7 weeks EGA. JEAN MARIE = 03/06/17. anatomy appears normal for gestational age. / Cardiac Activity: Present. FHR = 179bpm. Implantation: Intrauterine. Second small gestational sac is noted, no pole measured today. Cervix = 3.9 cm Maternal structures appear normal. Impression: Di/di twin gestation at 9+0 weeks with demise of twin B, normal appearing, viable twin A. Recommend comprehensive scan at 18 to 20 weeks. Brittnee Ryan, KELTON Lazo MD, FACOG documented in this encounter Plan of Treatment Upcoming Encounters Date Type Specialty Care Team Description 11/15/2021 Office Visit Wound Care Luis Camara, [place] [address] [place] [address] (Wo rk) documented as of this encounter Visit Diagnoses Diagnosis Supervision of high-risk , firs t trimester - Primary documented in this encounter Care Teams Hat Sprayer Relationship Specialty Start Date End Date Clinic, [facility] PCP - General 07/14/16 12/06/[address] [place] [id number] documented as of this encounter
--- OUTSIDE RECORDS SUMMARY | 2021-11-10 00:45 | XMS_ITS | Encounter Summary ---
:1980 Author Organization [place] Address [facility] [place] [address] Care Team Providers Name Role Phone Clinic, [facility] Primary Care Provide r Reason for Visit Reason Comments Abnormal Bleeding Problem Encounter Details Date Type Department Care Team Description 08/01/2016 Office Visit [facility] Mark Turner APRN CNM [facility] [address] [place], [place] [phone] High-risk , first trimester (Pr imary Dx); [facility] Violeta Fagan APRN CNCamryn [address] [place], [place] [id number] Twin with loss and reten tion of one fetus in first trimester; [place] Anxiety; [address] Uncomplicated opioid depende nce (H); [place] Professional Histo ry of depression; Bldg [facility] [address] Current every day smoker; [address] Fl[address] Hypothyroidism affecting pre gnancy in first trimester; [place], [place] Chronic hepa titis C without hepatic coma (H); [id number] Family history of SIDS (sudd en syndrome); [phone] History of feta l anomaly in prior , currently , first trimester; Current pregnan cy with history of pre-term labor, first trimester; History of 2 ce sarean sections; History of stil lbirth; compl icated by Suboxone maintenance, antepartum, first trimester (H); H/O rupture of uterus; History of MRSA infection; Itching Social History Tobacco Use Types Packs/Day Years [...] at Date Recorded Female 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/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 documented as of this encounter Last Filed Vital Signs Vital Sign Reading Time Taken Comments Blood Pressure 104/59 08/01/2016 1:43 PM CDT Pulse 85 08/01/2016 1:43 PM CDT Temperature - - Respiratory Rate - - Oxygen Saturation - - Inhaled Oxygen Concentration - - Weight 81.3 kg (179 lb 4.8 oz) 08/01/2016 1:43 PM CDT Height 167.6 cm (5' 5.98) 08/01/2016 1:43 PM CDT Body Mass Index 28.95 08/01/2016 1:43 PM CDT documented in this encounter Patient Instructions Patient InstructionsVioleta Fagan APRN CNM - 08/01/2016 1:56 PM CDT Thank you for choosing [facility] for your obstetrical care. We are an integrated health clinic with obstetricians, midwives, a psychologist, an automatic serging machine operator, a level vial marker, a pharmacist, internal medicine and family practice all in one. If you have questions about services offered please ask. o Please keep all appointments with your provider. You will help catch, prevent and treat problems early. o Review your Expectant Family booklet and folder given to you at this intake visit. It can answer many basic questions including: ??? Treatment for nausea and vomiting ??? Medications that are safe in ??? Healthy diet and weight gain ??? Exercise and activity o ASK questions!! Please use Questions for my New OB visit form to write down any questions or concerns for your next visit. o Eat a healthy diet. Visit www.u.sitmyplate.gov and click on ??? and ??? forinformation and tips o Do not smoke. Avoid other people's smoke, too. We are happy to help with referrals to stop smokingprograms. o Do not drink alcohol. o Try to avoid people who have colds or other infections. Practice good hand washing. o Consider registering for our Healthy Class here at [facility]. This class is offered every Friday from 2:30-4:30 p.m. [place] at [phone] or online at [email or web address] or [email or web address] o Consider registering for education classes through [employer] at [facility]. Youcan view class schedules and register online at [email or web address] or call [phone]) for questions For urgent concerns, call [facility] at to speak with a triage nurse during regular clinic hours (8:00 am - 4:30 pm). This line is answered by our service 24 hours a day, after hours a providerwill return your call. documented in this encounter Progress Notes Violeta Fagan APRN CNM - 08/01/2016 1:56 PM CDT Subjective 35 year old female who presents to clinic for initiation of OB care with two of her young children. at 8w6d with estimated date of delivery of Mar 07, 2017 based on US confirms. is planned. Symptoms since LMP include bleeding, cramping, nausea, bowel changes, breast tenderness, fatigue. Patient has tried these relief measures: diet modification, small frequent meals, increased rest and increased fluids. Reviewed dating ultrasound - noted one twin with good growth and FHTs. Second twin demised as previously noted in ER imaging. PERSONAL/SOCIAL HISTORY PINKYB Rafal Lives with patient and 3 children at home. 1 grown child 19yo lives outside home. Another child adopted out to pt's brother - open adoption. 5 living children total. Lost a child to SIDS at4 months. Lost a child at 5.5 months d/t multiple anomalies including cardiac issue. Had recent 19w delivery with still 07/2015. 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 Additional items: Has been given information regarding WIC - plans to apply. Denies present domestic violence, sexual and psychological abuse. +very remote h/o issues, feels like coping well - declines to go into detail as her young children are in the room. Feels safe currently, Feels stable on medications. Reviewed current medication regimen with patient - Suboxone - on currently. On 08/11 going to switch to subutex. Wellbutrin - stopped but wants to restart to see if can help stop smoking. Claritin - stopped Effexor-XR - questions about heart issues for fetus. Benadryl - needs RX. Omeprazole - not taking at this time, heartburn hasn't been bad s/s. Synthroid, Levothroid - thinks need redosing d/t fatigue. Took 2 yesterday - feeling better. Cigarettes - 5-7/day Co-morbids. See extensive problem list Genetic/Infection questionnaire completed, risks include personal history of child born with multiple anomalies including cardiac and 5.5 months after . Objective -VS: reviewed and within normal limits -General appearance: no acute distress, patient is comfortable NEUROLOGICAL/PSYCHIATRIC - Orientated x3, -Mood and affect: : normal Assessment/Plan at 8w6d by Patient's last menstrual period was 05/24/2016 (approximate). and US confirmaition Encounter Diagnoses Name Primary? High-risk , first trimester Yes ??? Twin with loss and retention of one fetus in first trimester ??? Anxiety ??? Uncomplicated opioid dependence (H) ??? History of depression ??? Current every day smoker ??? Hypothyroidism affecting in first trimester ??? Chronic hepatitis C without hepatic coma [...] of uterus ??? History of MRSA infection Orders Placed This Encounter Procedures ??? 25- OH-Vitamin D ??? CBC with Platelets Differential [BUP011] ??? Anti Treponema [LBN5108] ??? Rubella Antibody IgG Quantitative [ITO1002] ??? Hepatitis B Surface Antigen [YMR240] ??? HIV Antigen Antibody Combo [UCD1632] ??? Hepatitis C antibody ??? TSH with free T4 reflex ??? Hepatic Panel ??? Hepatitis C RNA quantitative ??? ABO/Rh Type and Screen [AUP454] - Oriented to Practice, types of care, and how to reach a provider. Pt aware recommendation for MD care d/t complex history and history of uterine rupture with TOLAC, pt agreeable. - Benadryl RX sent to pharmacy on file. - Patient received 1st trimester new OB education packet complete with aide of The Expectant Family booklet including information on genetic screening test options. - Patient desires 1st trimester screening which was previously ordered as is scheduled for 08/22/16 with MFM consult. - Patient was encouraged to start vitamins as tolerated. - Patient was sent to lab for routine OB labs including as above. - Encouraged WIC application. - Patient instructed to schedule new OB exam with physician at 10 weeks. - concerns to be addressed by provider at new OB exam include: - Personal history of 2 C/S with uterine rupture with previous TOLAC - Personal history of PTD at 19 weeks (presented to ER with unknown complete and delivered)- discuss case and consider if candidate for 17P - Personal history of child born with cardiac and multiple anomalies. [facility] genetic appt scheduled 08/22/16. Plan echo - Personal history of Chronic Hep C infection. Quant Hep C viral load and hepatic function tests ordered. Follow up with GI. - Personal history of current Suboxone maintenance. Pt states switching to Subutex in . Follow up with clinic. - Personal history of hypothyroidism on Synthroid. TFTs ordered. Follow up with PCP to titrate dosing. - Personal history of MRSA. Confirm 3 negative nasal swabs since treatment. - Current every day cigarette smoker. Patient interested in Wellbutrin RX for cessation assistance but declines to do 2 week taper to chosen quit date. Interested in longterm Wellbutrin use during to curb cravings. Epic message sent to pharmacist Dr. 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 Pt agreeable. - Personal history of depression treated with Effexor. Pt with questions about Effexor safety and cardiac anomalies. Reviewed was on medication during conception and formation of heart. If clinically effective recommend not stopping at this point and following up with MFM. Pt agreeable. - Personal history of depression/anxiety. States stable on medication. Encourage talk therapy. Social work prn. It was difficult to elicit complete medical and social history because pt was accompanied by two young children. Recommend thorough review of history and current medications/regimens again at [facility] to ensure no co morbids excluded from plan. Pt to RTO for [facility] visit in 2 weeks with physician and prn if questions or concerns Violeta Fagan APRN CNM documented in this encounter Nursing Notes Rhys Trevino CMA - 08/01/2016 1:30 PM CDT Chief Complaint Patient presents with ??? Abnormal Bleeding Problem Pt is 9 week documented in this encounter Plan of Treatment Upcoming Encounters Date Type Specialty Care Team Description 11/15/2021 Office Visit Wound Care Luis Camara, [place] [address] [place], [place] [phone] (Wo rk) documented as of this encounter Results (ABNORMAL) Hepatitis C RNA quantitative (10/10/2016 1:52 PM CDT) [facility] Method Time Signature HCV RNA Quant 5,052,767 HCVND^HCV 10/14/2016 [facility] IU/ml (A) RNA Not 12:34 PM CDT [facility] [IU]/mL BANK Comment: The LEONARDO AmpliPrep/LEONARDO TaqMan [...] (H) <1.2 Log IU/mL 10/14/2016 12:34 PM [facility] Specimen Anatomical Collection Method Collection Time Receive d Time (Source) Location / / Volume Laterality Blood specimen 10/10/2016 1:52 PM 017 1:55 (specimen) CDT PM CDT Violeta Fagan APRN CNM LAB - BLOOD ORDERABLES Performing Organization Address City/State/ZIP Code Phon e Number [facility] [address] [place], [place] [id number] [place] [address] (ABNORMAL) Hepatic Panel (10/10/2016 1:52 PM CDT) [facility] gist Method Time Signature Bilirubin Direct 0.1 0.0 - 0.2 10/10/2016 [place] [facility] mg/dL 3:12 PM T [facility] Bilirubin Total 0.4 0.2 - 1.3 10/10/2016 [facility] mg/dL 3:12 PM [facility] Albumin 2.8 (L) 3.4 - 5.0 10/10/2016 [facility] g/dL 3:12 PM T [facility] Protein Total 7.1 6.8 - 8.8 10/10/2016 [facility] g/dL 3:12 PM T [facility] Alkaline 60 40 - 150 10/10/2016 [facility] Phosphatase U/L 3:19 PM T [facility] ALT 27 0 - 50 U/L 10/10/2016 [facility] 3:12 PM T [facility] AST 17 0 - 45 U/L 10/10/2016 [facility] 3:12 PM T [facility] Specimen Anatomical Collection Method Collection Time Receive d Time (Source) Location / / Volume Laterality Blood specimen 10/10/2016 1:52 PM 08/24/2 017 1:55 (specimen) CDT PM CDT Violeta Fagan FARZANA [facility] LAB - BLOOD ORDERABLES Performing Organization Address City/[facility]/ZIP Code Phon e Number [phone] [place] [address] TSH with free T4 reflex (10/10/2016 1:52 PM CDT) athologist Signature TSH 1.66 0.40 - 4.00 10/10/2016 [facility] mU/L 3:19 PM CDT [facility] Specimen Anatomical Collection Method Collection Time Receive d Time (Source) Location / / Volume Laterality Blood specimen 10/10/2016 1:52 PM 017 1:55 (specimen) CDT PM CDT Violeta Fagan FARZANA [facility] LAB - BLOOD ORDERABLES Performing Organization Address City/[facility]/ZIP Code Phon e Number [phone] [place] [address] (ABNORMAL) Hepatitis C antibody (10/10/2016 1:52 PM CDT) [facility] Method Time Signature Hepatitis C Reactive (A) NR^Nonrea 10/11/2016 [facility] ctive 1:18 PM CDT [facility] Comment: A reactive result indicates one of [...] 1:55 (specimen) CDT PM CDT Violeta Fagan FARZANA [facility] LAB - BLOOD ORDERABLES Performing Organization Address City/[facility]/ZIP Code Phon e Number [facility] [address] [place] [address] [facility] HIV Antigen Antibody Combo [[id number]] (10/10/2016 1:52 PM CDT) [facility] Method Time Signature HIV Antigen Nonreactive NR^Nonrea 10/11/2016 [facility] Antibody ctive 1:18 PM CDT [facility] Comment: HIV-1 p24 Ag & HIV-1/HIV-2 Ab N ot Detected Specimen Anatomical Collection Method Collection Time Receive d Time (Source) Location / / Volume Laterality Blood specimen 10/10/2016 1:52 PM 017 1:55 (specimen) CDT PM CDT Violeta Fagan APRN CN LAB - BLOOD ORDERABLES Performing Organization Address City/[facility]/ZIP Code Phon e Number [facility] [address] [place], [place] [phone] [place] [address] Hepatitis B Surface Antigen [[id number]] (10/10/2016 1:52 PM CDT) [facility] Method Time Signature Hep B Surface Nonreactive NR^Nonrea 10/11/2016 [facility] Agn ctive 1:18 PM CDT [facility] Specimen Anatomical Collection Method Collection Time Receive d Time (Source) Location / / Volume Laterality Blood specimen 10/10/2016 1:52 PM 017 1:55 (specimen) CDT PM CDT Violeta STEVENS LAB - BLOOD ORDERABLES Performing Organization Address City/[facility]/ZIP Code Phon e Number [phone] [place] [address] Rubella Antibody IgG Quantitative [[id number]] (10/10/2016 1:52 PM CDT) [facility] Signature Rubella Antibody 8 IU/mL 10/11/2016 [facility] F IgG Quantitative 1:44 PM CDT [facility] Comment: Equivocal, please recollect. Reference Range: ??Unvaccinated Negative 0-7 IU/mL Vaccinated or previous exposure Positive 10 IU/ml or greater Specimen Anatomical Collection Method Collection Time Receive d Time (Source) Location / / Volume Laterality Blood specimen 10/10/2016 1:52 PM 017 1:55 (specimen) CDT PM CDT Violeta Fagan APRN, CNM LAB - BLOOD ORDERABLES Performing Organization Address City/[facility]/ZIP Code Phon e Number [facility] [address] [place] [address] [facility] Anti Treponema [[id number]] (10/10/2016 1:52 PM CDT) Analysis Performed At Patho logist Time Signature Treponema Negative NEG^Negati 10/11/2016 [facility] ve 10:21 AM CDT [facility] Antibody [facility] Specimen Anatomical Collection Method Collection Time Receive d Time (Source) Location / / Volume Laterality Blood specimen 10/10/2016 1:52 PM 017 1:55 (specimen) CDT PM CDT Violeta Fagan FARZANA CNM LAB - BLOOD ORDERABLES Performing Organization Address City/State/ZIP Code Phon e Number [address] [address] [facility] (ABNORMAL) CBC with Platelets Differential [[id number]] (10/10/2016 1:52 PM CDT) Patholo gist Method Time Signature WBC 5.3 4.0 - 10/10/2016 [facility] 11.0 2:52 PM CDT [facility] 10e9/L [facility] RBC Count 3.64 (L) 3.8 - 5.2 10/10/2016 [facility] 10e12/L 2:52 PM CDT [facility] Hemoglobin 11.1 (L) 11.7 - 10/10/2016 [facility] 15.7 g/dL 2:52 PM CDT [facility] Hematocrit 32.7 (L) 35.0 - 10/10/2016 [facility] 47.0 % 2:52 PM CDT [facility] MCV 90 78 - 100 10/10/2016 [facility] fl 2:52 PM CDT [facility] MCH 30.5 26.5 - 10/10/2016 [facility] 33.0 pg 2:52 PM CDT [facility] MCHC 33.9 31.5 - 10/10/2016 [facility] 36.5 g/dL 2:52 PM CDT [facility] RDW 13.1 10.0 - 10/10/2016 [facility] 15.0 % 2:52 PM CDT [facility] Platelet Count 186 150 - 450 10/10/2016 [facility] 10e9/L 2:52 PM CDT [facility] Diff Method Automated 10/10/2016 [facility] Method 2:52 PM CDT [facility] % Neutrophils 61.4 % 10/10/2016 [facility] 2:52 PM CDT [facility] % Lymphocytes 29.2 % 10/10/2016 [facility] 2:52 PM CDT [facility] % Monocytes 6.2 % 10/10/2016 [facility] 2:52 PM T [facility] % Eosinophils 2.8 % 10/10/2016 [facility] 2:52 PM CDT [facility] % Basophils 0.2 % 10/10/2016 [facility] 2:52 PM CDT [facility] % Immature 0.2 % 10/10/2016 [facility] Granulocytes 2:52 PM CDT [facility] Nucleated RBCs 0 0 /100 10/10/2016 [facility] 2:52 PM T [facility] Absolute 3.3 1.6 - 8.3 10/10/2016 [facility] Neutrophil 10e9/L 2:52 PM CDT [facility] Absolute 1.6 0.8 - 5.3 10/10/2016 [facility] Lymphocytes 10e9/L 2:52 PM CDT [facility] Absolute 0.3 0.0 - 1.3 10/10/2016 [facility] Monocytes 10e9/L 2:52 PM CDT [facility] Absolute 0.2 0.0 - 0.7 10/10/2016 [facility] Eosinophils 10e9/L 2:52 PM CDT [facility] Absolute 0.0 0.0 - 0.2 10/10/2016 [facility] Basophils 10e9/L 2:52 PM CDT [facility] Abs Immature 0.0 0 - 0.4 10/10/2016 [facility] Granulocytes 10e9/L 2:52 PM CDT [facility] Absolute 0.0 10/10/2016 [facility] Nucleated RBC 2:52 PM T [facility] Specimen Anatomical Collection Method Collection Time Receive d Time (Source) Location / / Volume Laterality Blood specimen 10/10/2016 1:52 PM 017 1:55 (specimen) CDT PM CDT Violeta Fagan APRN CNM LAB - BLOOD ORDERABLES Performing Organization Address City/State/ZIP Code Phon e Number [facility] [address] [place] [address] [facility] ABO/Rh Type and Screen [[id number]] (10/10/2016 1:52 PM CDT) Patholo gist Method Time Signature ABO B 10/10/2016 [facility] 6:33 PM CDT [facility] RH(D) Pos [facility] Antibody Neg 10/10/2016 [facility] Screen 6:33 PM CDT [facility] Test Valid University 10/10/2016 [facility] Only At [place] 4:54 PM CDT [facility] [facility] Hospital Specimen 10/13/2016 10/10/2016 [facility] Expires 4:54 PM CDT [facility] Specimen Anatomical Collection Method Collection Time Receive d Time (Source) Location / / Volume Laterality Blood specimen 10/10/2016 1:52 PM 017 1:56 (specimen) CDT PM CDT Violeta Fagan APRN, CNM LAB - BLOOD BANK TEST ORD ER Performing Organization Address City/State/ZIP Code Phon e Number [facility] [address] [place] [address] [facility] 25- OH-Vitamin D (10/10/2016 1:52 PM CDT) P athologist Signature Vitamin D 51 20 - 75 10/11/2016 [facility] Deficiency ug/L 1:18 PM CDT [place] [facility] Comment: Season, race, dietary intake, and treatm ent affect the concentration of 06-dczdkae-Gtpmdty D. Values may decreas e during winter [...] 017 1:55 (specimen) CDT PM CDT Violeta aFgan APRN, CNM LAB - BLOOD ORDERABLES Performing Organization Address City/State/ZIP Code Phon e Number [facility] [address] documented in this encounter Visit Diagnoses Diagnosis High-risk , first trimester - P rimary Twin with loss and reten tion of one fetus in first trimester Anxiety Anxiety state, unspecified Uncomplicated opioid dependence (H) Opioid type dependence, unspecified History of depression Personal history of other mental disorde r Current every day smoker Tobacco use disorder Hypothyroidism affecting in fi rst trimester Chronic hepatitis C without hepatic coma (H) Family history of SIDS (sudden infant de ath syndrome) Family history of other condition History of anomaly in prior pregna ncy, currently , first trimester Current with history of pre-te rm labor, first trimester History of 2 sections History of stillbirth with other poor reproductive h istory complicated by suboxone mainte nance, antepartum, first trimester (H) H/O rupture of uterus Personal history of other genital system and obstetric disorders History of MRSA infection Personal history of Methicillin resistan t Staphylococcus aureus Itching Unspecified pruritic disorder documented in this encounter Care Teams Exhibit Preparator Relationship Specialty Start Date End Date Clinic, [facility] PCP - General 07/14/16 12/06/16 [facility] [place] [address] documented as of this encounter
--- OUTSIDE RECORDS SUMMARY | 2021-11-10 00:45 | XMS_ITS | Encounter Summary ---
:1980 Author Organization [place] Address [address] [facility] [place] [address] Care Team Providers Name Role Phone System, Provider Not In Primary Care Provider Unavailable Reason for Visit Reason Comments Drug Problem Encounter Details Date Type Department Care Team Description 06/17/2016 Office Visit [facility] Edgar Alfredo Uncomplic ated opioid dependence (H) (Primary Dx); Clinic Ashly Gauthier MD Major depressive disorder, recurrent epi sode, moderate (H) [address] [place] [phone] Social History Tobacco Use Types Packs/Day Years Used Date Current Every Day Smoker Cigarettes 0.1 10 Smokeless Tobacco: Never Used Comments: 5 cigarettes a day Alcohol Use Standard Drinks/Week Comments No 0 (1 standard drink = 0.6 oz pure alcoho l) Sex Assigned at Date Recorded Female 01/14/2020 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 documented as of this encounter Last Filed Vital Signs Vital Sign Reading Time Taken Comments Blood Pressure 122/74 06/17/2016 11:25 AM CDT Pulse 102 06/17/2016 11:25 AM CDT Temperature 37 ??C (98.6 ??F) 06/17/2016 11:25 AM CDT Respiratory Rate 18 06/17/2016 11:25 AM CDT Oxygen Saturation 99% 06/17/2016 11:25 AM CDT Inhaled Oxygen Concentration - - Weight 79.6 kg (175 lb 8 oz) 06/17/2016 11:25 AM CDT Height 166.4 cm (5' 5.5) 06/17/2016 11:25 AM CDT Body Mass Index 28.76 06/17/2016 11:25 AM CDT documented in this encounter Progress Notes Edgar Alfredo MD - 06/17/2016 11:00 AM CDT SUBJECTIVE: Stephani King is a 35 year old female who presents to clinic today for the following health issues: OPIOID USE DISORDER - SUBOXONE FOLLOW UP: CURRENT DOSE: 10 MG DAILY NO CHANGE NOT WANTING TO DECREASE SUBOXONE CALMER MUCH MORE TALKATIVE TODAY THOUGHT SHE MAY BE BUT URINE HCG NEG WOULD LIKE SUBUTEX DUE TO BREAST FEEDING IF ABLE CONTINUE SAME STABLE Status since last visit: Since last visit [...] Data Base Reviewed: YES; NO ISSUES; CHECKED 06/17/16 Problem list and histories reviewed & adjusted, as indicated. Additional history: as documented Patient Active Problem List Diagnosis ??? CARDIOVASCULAR SCREENING; LDL GOAL LESS THAN 160 ??? Anxiety ??? Moderate major depression (H) ??? Uncomplicated opioid dependence (H) ??? Supervision of high-risk No past surgical history on file. Social History Substance Use Topics ??? Smoking status: Current Every Day Smoker Packs/day: 0.10 Years: 10.00 Types: Cigarettes ??? Smokeless tobacco: Never Used Comment: 5 cigarettes a day ??? Alcohol use No Family History Problem Relation Age of Onset [...] 5 times daily 140 tablet 1 ??? buprenorphine HCl-naloxone HCl (SUBOXONE) 2-0.[address] 1 Film under the tongue 5 times daily 25 Film 0 ??? [DISCONTINUED] WELLBUTRIN SR 150 MG 12 hr tablet Take 1 tablet (150 mg) by mouth 2 times daily 60 tablet 1 ??? loratadine (CLARITIN) 10 MG tablet Take [...] Take 1 tablet by mouth daily ??? Oozbegeg-Lij-Eh-FA ( VITAMINS) 0.8 MG TABS Take 1 tablet by mouth daily 30 tablet 6 ??? [DISCONTINUED] VITAMINS PO Take by mouth. No Known Allergies Labs reviewed in EPIC OBJECTIVE: BP 122/74 Pulse 102 Temp 98.6 ??F (37 ??C) (Oral) Resp 18 Ht 5' 5.5 (1.664 m) Wt 175 lb 8oz (79.6 kg) SpO2 99% BMI 28.76 kg/m2 Body mass index is 28.76 kg/(m^2). ROS: Constitutional, HEENT, cardiovascular, pulmonary, gi [...] orders placed or performed in visit on 06/17/16 Urine Drugs of Abuse Screen Panel 13 Result Value Ref Range Cannabinoids (50-asn-6-jawoamv-3-PUD) NDET ng/mL Not Detected Cutoff for a [...] be used for medical purposes only. Order [id number] for confirmation or individual confirmation tests to [facility]. Beta HCG qual IFA urine Result Value Ref Range Beta HCG Qual IFA Urine Negative NEG 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 FOR FAMILY LAW ATTORNEY USE OF HIGH RISK MEDICATION High Risk Drug Monitoring? YES Drug being monitored: Suboxone Reason for drug: Opioid Use Disorder What is being monitored?: Dosage, Cravings, Trigger, side effects, and continued abstinence. PLAN: ICD-10-CM 1. Uncomplicated opioid dependence (H) F11.20 buprenorphine HCl-naloxone HCl (SUBOXONE) 2-0.5 MG perfilm Urine Drugs of Abuse Screen Panel 13 Urine Drugs of Abuse Screen Panel 13 Beta HCG qual IFA urine WELLBUTRIN SR 150 MG 12 hr tablet buprenorphine (SUBUTEX) 2 MG SUBL sublingual tablet 2. Major depressive disorder, recurrent episode, moderate (H) F33.1 WELLBUTRIN SR 150 MG 12 hr tablet MEDICATIONS: Orders Placed This Encounter Medications ??? buprenorphine HCl-naloxone HCl (SUBOXONE) 2-0.5 MG per film Sig: Place 1 Film under the tongue 5 times daily Dispense: 25 Film Refill: 0 ??? WELLBUTRIN SR 150 MG 12 [...] visit in 2 MONTHS Edgar Alfredo MD [facility] documented in this encounter Plan of Treatment Upcoming Encounters Date Type Specialty Care Team Description 11/15/2021 Office Visit Wound Care Luis Camara, [place] [address] [place] [address] (Wo rk) documented as of this encounter Procedures Procedure Name Priority Date/Time Associated Diagnosis Comme nts BETA HCG QUALITATIVE Routine 06/17/2016 11:32 Uncomplicated op ioid Results for this IFA URINE AM CDT dependence (H) procedure are in the results section. URINE DRUGS OF ABUSE Routine 06/17/2016 11:29 Uncomplicated op ioid Results for this SCREEN PANEL 13 AM CDT dependence (H) procedure are in the results section. documented in this encounter Results Beta HCG qual IFA urine (06/17/2016 11:32 AM CDT) P athologist Signature Beta HCG Qual Negative NEG RJ LAB IFA Urine Specimen Anatomical Collection Method Collection Time Receive d Time (Source) Location / / Volume Laterality Urine specimen 06/17/2016 11:32 7 (specimen) AM CDT 11:33 AM CDT Edgar Alfredo MD LAB - URINE ORDERABLES Performing Organization Address City/State/ZIP [place] [address] [facility] Building [address] LAB (ABNORMAL) Urine Drugs of Abuse Screen Panel 13 (06/17/2016 11:29 AM CDT) Component Value Ref Test Analysis Performed Pathologis t Range Method Time At Signature Cannabinoids Not Detected NDET LAB (72-jjj-5-carboxy- Cutoff for a negative cannabinoid is 50 [...] or less. ng/mL Tricyclic Not Detected NDET LAB Antidepressants Cutoff for a negative tricy [...] less. ng/ mL Propoxyphene Not Detected NDET LAB (Norpropoxyphene) Cutoff for a negative propoxyphene is 3 00 ng/ml or less ng/mL Buprenorphine Detected, Abnormal Result NDET RJ LAB (Buprenorphine) Cutoff for a positive buprenorphine is greater than 10 ng/ml. ng/mL This is an unconfirmed screening result to be used for medical purposes only. Order [id number] for confirmation or individual confirmation tests to [facility]. (A) Specimen Anatomical Collection Method Collection Time Receive d Time (Source) Location / / Volume Laterality Urine specimen 06/17/2016 11:29 7 (specimen) AM CDT 11:30 AM CDT Edgar Alfredo MD LAB - URINE ORDERABLES Performing Organization Address City/[facility] [place] [address] [facility] [address] LAB documented in this encounter Visit Diagnoses Diagnosis Uncomplicated opioid dependence (H) - Pr imary Opioid type dependence, unspecified Major depressive disorder, recurrent epi sode, moderate (H) Major depressive disorder, recurrent epi sode, moderate documented in this encounter Care Teams Truck Trailer Final Inspector Relationship Specialty Start Date End Date System, Provider Not In PCP - General Clinic 08/12/14 07/13/16 documented as of this encounter
--- OUTSIDE RECORDS SUMMARY | 2021-11-10 00:45 | XMS_ITS | Encounter Summary ---
:1980 Author Organization [place] Address [address] [facility] [place] [address] Care Team Providers Name Role Phone [facility] Primary Care Provide r Encounter Details Date Type Department Care Team Description 07/18/2016 Care Coordination [facility] Anabelle Thomas Maternal Medicine GENARO [facility] [address] [place], [place] [address] Social History Tobacco Use Types Packs/Day Years Used Date Current Every Day Smoker Cigarettes 0.1 10 Smokeless Tobacco: Never Used Comments: 5 cigarettes a day Alcohol Use Standard Drinks/Week Comments No 0 (1 standard drink = 0.6 oz pure alcoho l) Sex Assigned at Date Recorded Female 01/14/2020 10:57 AM GRAND SCRIBE documented as of this encounter Plan of Treatment Upcoming Encounters Date Type Specialty Care Team Description 11/15/2021 Office Visit Wound Care Luis Camara, [place] [address] [place] [address] (Wo rk) documented as of this encounter Visit Diagnoses Not on filedocumented in this encounter Care Teams Abrasive Grinder Relationship Specialty Start Date End Date Clinic, [facility] PCP - General 07/14/16 12/06/[address] [place] [address] documented as of this encounter
--- OUTSIDE RECORDS SUMMARY | 2021-11-10 00:45 | XMS_ITS | Encounter Summary ---
:1980 Author Organization [place] Address [facility] [place] [address] Care Team Providers Name Role Phone [facility] Primary Care Provide r Luis Fernando Magana Primary Care Provider Primary Care Provide r Tatyana Haas LIMO DRIVER AREA DIRECTOR OF HOME HEALTH SALES Unavailable [phone] Stephani Pina LIMO DRIVER AREA DIRECTOR OF HOME HEALTH SALES Unavailable [phone] Tatyana Haas LIMO DRIVER AREA DIRECTOR OF HOME HEALTH SALES Unavailable [phone] Stephani Pina LIMO DRIVER AREA DIRECTOR OF HOME HEALTH SALES Unavailable [phone] Juanis Levi Primary Care Provider Elsa Yeh RN Unavailable Unavailable Rogelio Treadwell MD Unavailable [phone] Luis Camara DPM Unavailable [phone] Camryn Christina MD Unavailable Sintia Lange PA-C Unavailable Reason for Visit Reason Onset Date Comments Appointment 08/06/2016 Encounter Details Date Type Department Care Team Description 08/06/2016 [facility] Women's [facility] Alexia Hawkins Appointment [place] [address] [facility] [address] [place], [place] [phone] Social History Tobacco Use [...] at Date Recorded Female 01/14/2020 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 documented in this encounter Plan of Treatment Upcoming Encounters Date Type Specialty Care Team Description 11/15/2021 Office Visit Wound Care Luis Cmaara DPM [address] [place] [address] (Wo rk) documented as of this encounter Visit Diagnoses Not on filedocumented in this encounter Additional Health Concerns Infection Onset Date Last Indicated Resolved Time MRSAComment: Added from external infection. 11/07/201406/18 documented as of this encounter Care Teams Upholstery Handler Relationship Specialty Start Date End Date Clinic, [facility] PCP - General 07/14/[address] [address] Luis Fernando Magana PCP - General Family Practice 12/07/16 01/19/[address] [phone] [facility], [facility] PCP - General 01/20/[address] [phone] Juanis Levi PCP - General Addiction Medicine 06/29/21 [address] [place] [phone] Tatyana Haas, LIMO DRIVER Assigned PCP 08/02/1801/28 AREA DIRECTOR OF HOME HEALTH SALES [facility] [address] [facility] [address] [place] [address] Stephani Pina, Assigned PCP 01/30/20 12/30/20 LIMO DRIVER AREA DIRECTOR OF HOME HEALTH SALES [address] [place], [place] [address] Tatyana Haas, LIMO DRIVER Assigned PCP 12/31/20 2 AREA DIRECTOR OF HOME HEALTH SALES [facility] [address] [facility] [address] [place], [place] [address] Stephani Pina, Assigned PCP 02/25/21 LIMO DRIVER AREA DIRECTOR OF HOME HEALTH SALES [address] [place] [address] Elsa Yeh, Registered Nurse Infectious Diseases 07/25/21 Rogelio Wilson Assigned Musculoskeletal 08/04/21 MD August Provider [address] [place], [place] [phone] Luis Camara MD Podiatry 08/16/21 [place] [address] [place], [place] [phone] Camryn Christina, Assigned Surgical 09/01/21 09/07/21 MD Provider [address] [facility] [address] [place] [address] Sintia Lange PA-C Assigned Surgical 09/08/[address]LO[address] [place], [place] [address] documented as of this encounter
--- OUTSIDE RECORDS SUMMARY | 2021-11-10 00:45 | XMS_ITS | Encounter Summary ---
:1980 Author Organization [place] Address [address] [place] [address] Care Team Providers Name Role Phone Clinic, [facility] Primary Care Provide r Reason for Visit Reason Onset Date Comments Establish Care 07/18/2016 care Encounter Details Date Type Department Care Team Description 07/18/2016 [facility] Mark Turner Establi [facility] ADMIN PROG COORD CNM ( care) [facility] HEALTH [address] SPECIALISTS [place] [facility] [address] Bld[address] [facility] [address] [place], [place] 3rd [facility] [address] [address] [place], [place] [phone] (Work) [phone] Social History Tobacco Use Types Packs/Day Years Used Date Current Every Day Smoker Cigarettes 0.1 10 Smokeless Tobacco: Never Used Comments: 5 cigarettes a day Alcohol Use Standard Drinks/Week Comments No 0 (1 standard drink = 0.6 oz pure alcoho l) Sex Assigned at Date Recorded Female 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 Telephone Encounter - Juni Vital - 07/18/2016 2:49 PM CDT Patient called would like to establish care. Patient LMP 05/24/16 Patient is Patient complains nausea and breast tenderness documented in this encounter Plan of Treatment Upcoming Encounters Date Type Specialty Care Team Description 11/15/2021 Office Visit Wound Care Luis Camara DPM [address] [place] [address] (Wo rk) documented as of this encounter Visit Diagnoses Diagnosis Supervision of high-risk , firs t trimester - Primary documented in this encounter Care Teams Hand Etcher Relationship Specialty Start Date End Date Clinic, [facility] PCP - General 07/14/16 12/06/[address] [place] [address] documented as of this encounter
--- OUTSIDE RECORDS SUMMARY | 2021-11-10 00:45 | XMS_ITS | Encounter Summary ---
:1980 Author Organization [place] Address [address] [facility] [place] [address] Care Team Providers Name Role Phone Clinic, [facility] Primary Care Provide r Luis Fernando Magana Primary Care Provider Reason for Visit Reason Onset Date Comments Vaginal Bleeding 07/18/2016 8 weeks wit h weeks, very high ristk pregancy, she is bleeding heav mateo and passed 6-7 clots so far Encounter Details Date Type Department Care Team Description 07/18/2016 [facility] Mark Turner, Vaginal Bleeding (8 [facility] BANQUET STEWARD CNM weeks with [facility] weeks, very high ristk [address] SPECIALISTS pregancy, she is [place] [facility] [address] bleeding heavily and Bldg [facility] [address] [place], [place] passed 6-7 clots so 3rd Flr,[address] [address] far) [place], [place] [phone] (Work) [phone] Social History Tobacco Use Types Packs/Day Years Used Date Current Every Day Smoker Cigarettes 0.1 10 Smokeless Tobacco: Never Used Comments: 5 cigarettes a day Alcohol Use Standard Drinks/Week Comments No 0 (1 standard drink = 0.6 oz pure alcoho l) Sex Assigned at Date Recorded Female 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 documented as of this encounter Plan of Treatment Upcoming Encounters Date Type Specialty Care Team Description 11/15/2021 Office Visit Wound Care [place], Luis Lex, [place] [address] [place] [address] (Wo rk) documented as of this encounter Visit Diagnoses Not on filedocumented in this encounter Care Teams Medical Supply Technician Relationship Specialty Start Date End Date Clinic, [facility] PCP - General 07/14/16 12/06/[address] [place] [address] Luis Fernando Magana PCP - General Family Practice 12/07/16 01/19/18 [facility] [address] [place] [phone] documented as of this encounter
--- OUTSIDE RECORDS SUMMARY | 2021-11-10 00:45 | XMS_ITS | Encounter Summary ---
:1980 Author Organization [place] Address [address] [place] [address] Care Team Providers Name Role Phone Clinic, [facility] Primary Care Provide r Reason for Visit Reason Onset Date Comments Consult 07/18/2016 triage Encounter Details Date Type Department Care Team Description 07/18/2016 Telephone [facility] Anabelle Thmoast (triage) Maternal Medicine GENARO [facility] [address] [place] [address] Social History Tobacco Use Types Packs/Day Years Used Date Current Every Day Smoker Cigarettes 0.1 10 Smokeless Tobacco: Never Used Comments: 5 cigarettes a day Alcohol Use Standard Drinks/Week Comments No 0 (1 standard drink = 0.6 oz pure alcoho l) Sex Assigned at Date Recorded Female 01/14/2020 10:57 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 Pt given information that she should establish care with [facility] within the next 2 weeks for OB care. Mfm will see around first tri screen time for GC/First tri screen and MFM consult. Pt states understanding. Has number to call to set up appointment with [facility]. No further questions at this time. Anabelle Thomas RN documented in this encounter Plan of Treatment Upcoming Encounters Date Type Specialty Care Team Description 11/15/2021 Office Visit Wound Care Luis Camara, [place] [address] [place] [address] (Wo rk) documented as of this encounter Visit Diagnoses Not on filedocumented in this encounter Care Teams Radiation Therapy Technician Relationship Specialty Start Date End Date Clinic, [facility] PCP - General 07/14/16 12/06/[address] [place] [address] [phone] documented as of this encounter
--- OUTSIDE RECORDS SUMMARY | 2021-11-10 00:45 | XMS_ITS | Encounter Summary ---
:1980 Author Organization [place] Address [address] [facility] [address] Care Team Providers Name Role Phone Clinic, [facility] Primary Care Provide r Reason for Visit Reason Comments Genetic Counseling GC: AMA, +Hep B, smoker, Hx heart defect, subutex use Ultrasound 1st tri screen: AMA, +Hep B, smoker, Hx heart defect, subutex use Consult MFM consult: AMA, +Hep B, sm oker, Hx heart defect, subutex use Encounter Details Date Type Department Care Team Description 08/16/2016 PRE VISIT [facility] Sintia Rasheed Genetic Epifanio story (GC: Maternal Medicine GENARO Ghotra AMA, +Hep B, smoker, Hx [facility] [place] heart defect, [address] subutex use); [place], [place] [address] Ultrasound (1st tri [phone] screen: AMA, +H ep B, smoker, Hx feta l heart defect, subutex use); Consult (MFM co nsult: AMA, +Hep B, sm oker, Hx heart def ect, subutex use) Social History Tobacco Use Types Packs/Day Years [...] at Date Recorded Female 01/14/2020 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
--- OUTSIDE RECORDS SUMMARY | 2021-11-10 00:45 | XMS_ITS | Encounter Summary ---
:1980 Author Organization [facility] Address [address] [place] [address] Care Team Providers Name Role Phone [facility], [facility] Primary Care Provide r Luis Fernando Magana Primary Care Provider [facility] Primary Care Provide r Tatyana Haas THREAD WINDER SOLAR SALES REP Unavailable Stephani Pina THREAD WINDER SOLAR SALES REP Unavailable Tatyana Haas THREAD WINDER SOLAR SALES REP Unavailable [phone] Stephani Pina THREAD WINDER [employer] SAL[employer] REP Unavailable Juanis Levi Primary Care Provider Elsa Yeh RN Unavailable Unavailable Rogelio Treadwell MD Unavailable [phone] Luis Camara DPM Unavailable [phone] Camryn Christina MD Unavailable Sintia Lange PA-C Unavailable Reason for Referral - Closed Specialty Diagnoses / Procedures Referred By Contact Refer red To Contact Diagnoses related condition, unspecified [facility] [address] [place] [address] Referral ID Status Reason Start Date Expiration Date Visits Requ ested Visits Authorized [id number] Closed 07/17/2016 07/17/2017 1 1 Encounter Details Date Type Department Care Team Description 07/17/[address] [facility] [place], Apri l related Maternal FAMILYHEALTH condition, un specified Medicine Center MEDICAL trimester (Primary Dx) [address] [place], [place] [address] [address] [place], [place] [phone] (Work) [phone] Social History Tobacco Use Types Packs/Day Years Used Date Current Every Day Smoker Cigarettes 0.1 10 Smokeless Tobacco: Never Used Comments: 5 cigarettes a day Alcohol Use Standard Drinks/Week Comments No 0 (1 standard drink = 0.6 oz pure alcoho l) Sex Assigned at Date Recorded Female 01/14/2020 10:57 AM [facility] documented as of this encounter Plan of Treatment Upcoming Encounters Date Type Specialty Care Team Description 11/15/2021 Office Visit Wound Care Luis Camara DPM [address] [place], [place] [id number] (Wo rk) Scheduled Referrals Name Type Priority Associated Diagnoses Order S chedule [facility] Referral Routine related Order ed: 07/17/2016 REFERRAL- condition, unspecified trimester documented as of this encounter Visit Diagnoses Diagnosis related condition, unspecified trimester - Primary documented in this encounter Additional Health Concerns Infection Onset Date Last Indicated Resolved Time MRSAComment: Added from external infection. 11/07/201406/18 documented as of this encounter Care Teams Field Test Engineer Relationship Specialty Start Date End Date Clinic, [facility] PCP - General 07/14/[address] [address] Luis Fernando Magana PCP - General Family Practice 12/07/16 01/19/[address] [place] [address] Clinic, [facility] PCP - General 01/20/[address] [address] Juanis Levi PCP - General Addiction Medicine 06/29/[address] [place] [phone] Tatyana Haas, THREAD WINDER Assigned PCP 08/02/1801/28 SOLAR SALES REP [facility] [address] [facility] [address] [place] [address] Stephani Pina, Assigned PCP 01/30/20 12/30/20 [employer] SAL[employer] REP [address] [place] [address] [address] [place] [address] Tatyana Haas THREAD WINDER Assigned PCP 12/31/20 2 SOLAR SALES REP [facility] [address] [facility] [address] [place] [address] Stephani Pina, Assigned PCP 02/25/21 [employer] REP [address] [place] [address] [address] [place] [address] Elsa Yeh, Registered Nurse Infectious Diseases 07/25/21 Rogelio Wilson Assigned Musculoskeletal 08/04/21 MD August Provider [address] [place], [place] [id number] Luis Camara MD Podiatry 08/16/21 CALVIN [place]ett [address] [place], [place] [address] Camryn Christina, Assigned Surgical 09/01/21 09/07/21 MD [facility] [address] [place] [address] Sintia Lange PA-C Assigned Surgical 09/08/[address] Provider [place], [place] [id number] documented as of this encounter
--- OUTSIDE RECORDS SUMMARY | 2021-11-10 00:45 | XMS_ITS | Encounter Summary ---
:1980 Author Organization [place] Address [address] [place] [id number] Care Team Providers Name Role Phone Clinic, [facility] Primary Care Provide r Reason for Visit Reason Comments Threatened Miscarriage Encounter Details Date Type Department Care Team Description 07/14/2016 Emergency [facility] Santosh Spears, Twin gestation in first trimester, unspecified multiple gestation type; [facility] Emergency Dep t Threatened miscarriage in early pregnanc y [address] [facility] [id number] [address] [phone] [address] [place], [place] [id number] (Wo rk) Social History Tobacco Use Types Packs/Day Years Used Date Current Every Day Smoker Cigarettes 0.1 10 Smokeless Tobacco: Never Used Comments: 5 cigarettes a day Alcohol Use Standard Drinks/Week Comments No 0 (1 standard drink = 0.6 oz pure alcoho l) Sex Assigned at Date Recorded Female 01/14/2020 10:57 AM [employer] documented as of this encounter Last Filed Vital Signs Vital Sign Reading Time Taken Comments Blood Pressure 119/72 07/14/2016 9:28 AM CDT Pulse 101 07/14/2016 9:28 AM CDT Temperature 36.7 ??C (98.1 ??F) 07/14/2016 7:23 AM CDT Respiratory Rate 16 07/14/2016 9:28 AM CDT Oxygen Saturation 96% 07/14/2016 9:28 AM CDT Inhaled Oxygen Concentration - - Weight 81.2 kg (179 lb) 07/14/2016 7:23 AM CDT Height 167.6 cm (5' 6) 07/14/2016 7:23 AM CDT Body Mass Index 28.89 07/14/2016 7:23 AM CDT documented in this encounter Discharge Instructions Discharge InstructionsSantosh Spears MD - 07/14/2016 9:06 AM CDT Please see your OB in the next 3 days for a recheck. Return to the Emergency Room if you develop more vaginal bleeding (soaking one pad an hour), lightheadedness, abdominal pain or if you have any new concerns about your health. It was my pleasure to take care of you today. Thanks for visiting [facility] Emergency Room. Santosh Spears MD Vaginal Bleeding in Early : During early (first three months), it is not uncommon to have a small amount of bleeding. This can be entirely normal. But heavy bleeding or severe cramping can be an early sign of miscarriage. A ???miscarriage?? means unexpected loss of your . In about half of patients with bleeding or cramping during early , these symptoms will stopand the will continue normally. However, half of the time a miscarriage will occur. A miscarriage may occur due to various causes. These include a problem with the baby???s chromosomes (genesthat carry the information needed for life) or with fertilization or implantation that didn???t happen correctly. In most cases no cause can be found. Be reassured that this is not the result of anything that you did wrong, and it will not interfere with your ability to become in the future Home Care: To improve the chance of keeping this , you should do the following: ?? Rest in bed until the pain and bleeding stop. ?? Do not have sexual intercourse for the next 3 weeks. ?? Use sanitary napkins instead of tampons. ?? Do not douche. Follow-Up: Make an appointment with your doctor within the next week, or as directed by our staff. Note: If you had an ultrasound, it will be reviewed by a specialist. You will be notified of any newfindings that may affect your care. Get Prompt Medical Attention if any of the following occur: ?? Vaginal bleeding or pain for more than three days ?? Heavy bleeding (soaking one new pad an hour over three hours) ?? Fever of 100.4??F (38??C) or higher, or as directed by your healthcare provider ?? Increasing lower abdominal pain ?? Weakness, dizziness, or fainting ?? Passage of anything that resembles tissue: pink or grayish membrane or solid material (save the tissue in a clean container and bring to the doctor) documented in this encounter Medications at Time [...] by 30 tablet 6 12/10/2012 08/30/19 17 Nniuiclf-Pod-Ka-FA mouth daily ( VITAMINS) 0.8 MG TABSIndications: [...] documented as of this encounter ED Notes Violeta Riggs RN - 07/14/2016 9:31 AM CDT Discharge instructions reviewed with patient. Patient verbalizes her understanding. Followup care reviewed and stressed. DC to home per order. All questions answered, Violeta Riggs RN - 07/14/2016 7:28 AM CDT Patient presents with vaginal bleeding with passage of clots which began approximately one hour ago.Patient's last period was May 24, 2016. Patient states that has taken two OTC tests whichindicate positive for . Patient has not yet seen a physician for her . ABCs intact. Santosh Spears MD - 07/14/2016 7:11 AM CDT History Chief Complaint: Vaginal bleeding HPI Stephani King is a 35 year old female who presents with her mother to the emergency department forevaluation of vaginal bleeding. She states that she believes that she is about 8 weeks as her last menstrual period was May 24, having taken 2 positive home tests. Vaginal bleeding began after intercourse last night. She states that there was an excessive amount of bleeding and she notes that she passed 2-3 large clots. She also has had generalized weakness. The patient has been in the past. She denies receiving RhoGAM shots in the past. The patient is a smoker and a drinker and has been drinking over the past few weeks due to not knowing she was . She denies any abdominal pain. Allergies: NKDA Medications: Suboxone Wellbutrin Subutex Claritin Effexor-XR Benadryl Omeprazole Synthroid, Levothroid Past Medical History: Uncomplicated opioid dependence Moderate major depression Anxiety Past Surgical History: Caesarean section Family History: Depression-Mother, Brother Asthma-Son Thyroid Disease-Mother Social History: Marital Status: Presents to the ED with her mother Tobacco Use: Current daily smoker, 0.10 PPD. Alcohol Use: Yes PCP: [facility] Review of Systems Constitutional: Positive for fatigue. Gastrointestinal: Negative for abdominal pain. Genitourinary: Positive for vaginal bleeding. All other systems reviewed and are negative. Physical Exam Patient Vitals for the past 24 hrs: BP Temp Pulse Heart Rate Resp SpO2 Height Weight 07/14/16 0928 119/72 - 101 101 16 96 % - - 07/14/16 0723 131/79 98.1 ??F (36.7 ??C) 92 92 16 99 % 1.676 m (5' 6) 81.2 kg (179 lb) Physical Exam General: Patient is alert and interactive when I enter the room Head: The scalp, face, and head appear [...] interactions. Lymph: No anterior cervical lymphadenopathy noted : Deferred. Emergency Department Course Imaging: US OB <14 weeks with transvaginal: 1. Twin gestation. Two gestational sacs. Both gestations appear viable. Gestational sac A and embryo A is slightly larger than gestational sac B and embryo B. 2. No hemorrhage identified. Preliminary radiology read. Radiographic findings were communicated with the patient who voiced understanding of the findings. Laboratory: HCG Quantitative: 78618 (H) CBC: WBC 7.9, HGB 12.6, PLT 230, otherwise WNL ABO/Rh Type and Screen: B positive, antibody screen negative RH immune Globulin study: B positive Emergency Department Course: Nursing notes and vitals reviewed. I performed an exam of the patient as documented above. A peripheral IV was established. Blood was drawn from the patient. This was sent for laboratory testing, findings above. The patient was sent for a US OB while in the emergency department, findings above. Findings and plan explained to the patient. Patient discharged home with instructions regarding supportive care, medications, and reasons to return. The importance of close follow-up was reviewed. The patient was prescribed Folic Acid I personally reviewed the laboratory results with the patient and answered all related questions prior to discharge. Impression & Plan Medical Decision Making: Stephani King is a 35 year old female who presents for evaluation of vaginal bleeding. The workup here shows threatened miscarriage. There is not a subchorionic hemorrhage. I considered a broad differential including ovarian cyst, UTI, pyelonephritis, subchorionic hemorrhage, uterine bleeding, active miscarriage, constipation, etc. More rare but serious etiologies considered included ectopic , appendicitis, cholecystitis, volvulus, intraabdominal abscess, heterotopic , etc. In this patient, there are no signs of serious etiologies of abdominal pain. Supportive outpatient manageme nt is therefore indicated. Plan is home, close follow-up with OB, threatened miscarriage precautions, and return to ED for worsening pain, heavy vaginal bleeding (more than 1 pad soaked every hour). Questions were answered. Given hx see ob in expedited manner (hx of uterine rupture, new twins). Diagnosis: ICD-10-CM 1. Twin gestation in first trimester, unspecified multiple gestation type O30.001 2. Threatened miscarriage in early O20.0 Disposition: discharged to home Discharge Medications: Discharge Medication List as of 07/14/2016 9:23 AM START taking these medications Details folic acid (FOLVITE) 1 MG tablet Take 1 tablet (1 mg) by mouth daily, Disp-100 tablet, R-3, Local Print Flo Powers, am serving as a scribe on 07/14/2016 at 7:38 AM to personally document services performed by Santosh Spears MD based on my observations and the provider's statements to me. 07/14/2016 [facility] EMERGENCY DEPARTMENT Santosh Spears MD 07/14/16 1206 documented in this encounter Plan of Treatment Upcoming Encounters Date Type Specialty Care Team Description 11/15/2021 Office Visit Wound Care Luis Camara, DPM [address] [place] [address] (Wo rk) documented as of this encounter Procedures Procedure Name Priority Date/Time Associated Comments Diagnosis US OB <14 WEEKS WITH STAT 07/14/2016 8:38 AM R esults for this TRANSVAGINAL SINGLE CDT procedur e are in the results section. RH IMMUNE GLOBULIN Routine 07/14/2016 7:46 AM Res ults for this SCREEN CDT procedure are i n the results section. ABO/RH TYPE AND STAT 07/14/2016 7:46 AM Result s for this SCREEN CDT procedure are i n the results section. RHOGAM ORDER Routine 07/14/2016 7:36 AM Results f or this CDT procedure are i n the results section. CBC WITH PLATELETS & STAT 07/14/2016 5:28 AM R esults for this DIFFERENTIAL CDT procedure are i n the results section. HCG QUANTITATIVE STAT 07/14/2016 5:28 AM Resul ts for this CDT procedure are i n the results section. documented in this encounter Results US OB < 14 Weeks w Transvaginal (07/14/2016 8:38 AM CDT) Anatomical Region Laterality Modality Abdomen/Pelvis Ultrasound Specimen (Source) Anatomical Location Collection Method / Collectio n Time Received Time / Laterality Volume Impressions 07/14/2016 2:41 PM CDT IMPRESSION: 1. Twin gestation. Two gestational sacs. Both gestations appear viable. Gestational sac A and embryo A i s slightly larger than gestational sac B and embryo B. 2. No hemorrhage identified. DOMINIQUE MERCER MD Narrative 07/14/2016 2:41 PM CDT US OB <14 WEEKS WITH TRANSVAGINAL SINGLE ??07/14/2016 8:38 AM HISTORY: ??vaginal bleeding,eval for mis carriage, threatened miscarriage COMPARISON: None. TECHNIQUE: Transabdominal and transvagin al imaging was performed. Transvaginal exam performed to better ev aluate the uterus, ovaries and adnexa. FINDINGS: 2 intrauterine gestational sac s are identified within the endometrial cavity. Gestational sac a lo s a mean sac diameter of 1.4 cm. Tenkiller-rump length is 0.5 cm this cor responds to a gestational age of 6 weeks 2 days. Estimated date of del elmira is 03/07/2017. Yolk sac is identified. Heart rate is 1 26 bpm. Gestational sac B measures mean sac diam eter 0.8 cm. This corresponds to an age of 5 weeks 3 days. Tenkiller-rump length is 0.3 cm corresponding to a gestational age of 6 weeks 0 days. Heart rate is 120 bpm. Estimated date of delivery is 03/09/2017. Right ovary appears normal. Left ovary i s not seen. No hemorrhage. No adnexal mass. No free fluid. Procedure Note Juni Mercer MD - 07/14/2016For matting of this note might be different from the original. US OB <14 WEEKS WITH TRANSVAGINAL SINGLE 07/14/2016 8:38 AM HISTORY: vaginal bleeding,eval for misca rriage, threatened miscarriage COMPARISON: None. TECHNIQUE: Transabdominal and transvagin al imaging was performed. Transvaginal exam performed to better ev aluate the uterus, ovaries and adnexa. FINDINGS: 2 intrauterine gestational sac s are identified within the endometrial cavity. Gestational sac a lo s a mean sac diameter of 1.4 cm. Tenkiller-rump length is 0.5 cm this cor responds to a gestational age of 6 weeks 2 days. Estimated date of del elmira is 03/07/2017. Yolk sac is identified. Heart rate is 1 26 bpm. Gestational sac B measures mean sac diam eter 0.8 cm. This corresponds to an age of 5 weeks 3 days. Tenkiller-rump length is 0.3 cm corresponding to a gestational age of 6 weeks 0 days. Heart rate is 120 bpm. Estimated date of delivery is 03/09/2017. Right ovary appears normal. Left ovary i s not seen. No hemorrhage. No adnexal mass. No free fluid. IMPRESSION: 1. Twin gestation. Two gestational sacs. Both gestations appear viable. Gestational sac A and embryo A i s slightly larger than gestational sac B and embryo B. 2. No hemorrhage identified. DOMINIQUE MERCER MD Santosh Spears MD IMG US ORDERABLES Rh Immune Globulin Study (07/14/2016 7:46 AM CDT) [facility] Method Time Signature ABO B [facility] RH(D) Pos [facility] Blood Canceled, [place] Screen Test [facility] Blood Bank Not suitable for Rh Immune Globulin [place] Comment Patien is Rh Positive [facility] Amount of RHIG Not suitable [facility] Required for Rh [facility] Globulin Specimen Anatomical Collection Method Collection Time Receive d Time (Source) Location / / Volume Laterality 07/14/2016 7:46 AM 7 7:58 CDT AM CDT Santosh Spears MD LAB - BLOOD BANK TEST ORDER Performing Organization Address [facility] Phon e Number [facility] [address], [place] [address] [employer] [address] [place], [place] [address], [facility] [phone] ABO/Rh type and screen (07/14/2016 7:46 AM CDT) [facility] Method Time Signature ABO B [facility] RH(D) Pos [facility] Antibody Neg [facility] Test Valid [facility] Only At [facility] HOSPITAL Specimen 07/17/2016 [facility] Specimen Anatomical Collection Method Collection Time Receive d Time (Source) Location / / Volume Laterality Blood specimen 07/14/2016 7:46 AM 017 8:01 (specimen) CDT AM CDT Santosh Spears MD LAB - BLOOD BANK TEST ORDER Performing Organization Address City/[facility]/ZIP [facility] Phon e Number [facility] [address], [place] [address] [employer] [address] [place] [id number] 7, [facility] [phone] Rho (D) immune globulin (RhoGam) Lab Study (07/14/2016 7:36 AM CDT) [facility] Method Time Signature Rhogam Order Order received [place] See Rhogam Study/Suitability [facility] Specimen Anatomical Collection Method Collection Time Receive d Time (Source) Location / / Volume Laterality 07/14/2016 7:36 AM 7 7:45 CDT AM CDT Santosh Spears MD LAB - BLOOD BANK PRODUCT ORD ER Performing Organization Address City/[facility]/ZIP [facility] Phon e Number [facility] [address], [place] [address] [employer] [address] [place], [place] [address], [facility] [phone] (ABNORMAL) HCG QUANTitative (07/14/2016 5:28 AM CDT) [facility] Method Time Signature HCG Quantitative 19,512 0 - 5 [place] Serum (H) IU/L [facility] Specimen Anatomical Collection Method Collection Time Receive d Time (Source) Location / / Volume Laterality Blood specimen 07/14/2016 5:28 AM 017 7:59 (specimen) CDT AM CDT Santosh Spears MD LAB - BLOOD ORDERABLES Performing Organization Address City/[facility]/ZIP [facility] Phon e Number [facility] [address], [place] [address] [place] [address] [place], [place] [address], [facility] [phone] CBC with platelets differential (07/14/2016 5:28 AM CDT) [facility] Method [place] Signature WBC 7.9 4.0 - [facility] 11.0 [facility] 10e9/L [facility] RBC Count 4.00 3.8 - 5.2 [place] 10e12/L [facility] Hemoglobin 12.6 11.7 - [place] 15.7 g/dL [facility] Hematocrit 37.4 35.0 - [place] 47.0 % [facility] MCV 94 78 - 100 [facility] MCH 31.5 26.5 - [place] 33.0 pg [facility] MCHC 33.7 31.5 - [place] 36.5 g/dL [facility] RDW 13.3 10.0 - [place] 15.0 % [facility] Platelet Count 230 150 - 450 [place] [facility] Diff Method Automated [facility] % Neutrophils 42.2 % [facility] % Lymphocytes 48.0 % [facility] % Monocytes 6.4 % [facility] % Eosinophils 2.5 % [facility] % Basophils 0.6 % [facility] % Immature 0.3 % [place] Granulocytes [facility] Nucleated RBCs 0 0 /100 [facility] Absolute 3.3 1.6 - 8.3 [place] Neutrophil 10e9/L [facility] Absolute 3.8 0.8 - 5.3 [place] Lymphocytes [address] Absolute 0.5 0.0 - 1.3 [place] Monocytes [address] [place] [address] Absolute 0.2 0.0 - 0.7 [place] Eosinophils [address] [place] [address] Absolute 0.1 0.0 - 0.2 [place] Basophils [address] [place] [address] Abs Immature 0.0 0 - 0.4 [place] Granulocytes [address] [place] [address] Absolute 0.0 [place] Nucleated RBC [facility] Specimen Anatomical Collection Method Collection Time Receive d Time (Source) Location / / Volume Laterality Blood specimen 07/14/2016 5:28 AM 017 7:59 (specimen) CDT AM CDT Santosh Spears MD LAB - BLOOD ORDERABLES Performing Organization Address City/State/ZIP Code Phon e Number [place] [address] [place] [address] [phone] documented in this encounter Visit Diagnoses Diagnosis Twin gestation in first trimester, unspe cified multiple gestation type Threatened miscarriage in early pregnanc y Threatened , unspecified as to e pisode of care documented in this encounter Administered Medications Inactive Administered Medications - up to 3 most recent administrations Medication Order MAR Action Action Date Dose Rate Site Blood Bank will determine if patient is eligible for and the proper dosage of Rho (D) immune globulin (RhoGam) CONTINUOUS PRN, Starting on 07/14/16 at 0736, Until 07/14/16 at 1133, Blood Bank will determine if patient is eligible for and the proper dosage of Rho (D) immune globulin (RhoGam) based on laboratory results a nd will enter appropriate dosing order. If appropriate dose is greater than the standard dose (300 mcg), provider will be notified. lidocaine (LMX4) kit Topical, EVERY 1 HOUR PRN, pain, with VA D insertion or accessing implanted port,, Starting on 07/14/16 at 0735, For 1 d ose, Do NOT give if patient has a history of allergy to any local anesthetic or an y sherita product. Apply 30 minutes prior to VAD insertion or port access. MAX Dose: 2.5 g (?? o f 5 g tube) lidocaine 1 % 1 mL 1 mL, Other, EVERY 1 HOUR PRN, mild pain with VAD insertion or accessing implanted port,, Starting on 07/14/16 at 0735, Do NOT give if patient has a history of allergy to any local anesthetic or any sherita product. MAX dose 1 mL subcutaneous OR intradermal in divided doses. NO Rho (D) immune globulin (RhoGam) need ed - mother INELIGIBLE CONTINUOUS PRN, Starting on 07/14/16 at 0824, Until 07/14/16 at 1133, NO Rho (D) immune globulin (RhoGam) needed - mo ther INELIGIBLE. This order was placed by Blood Bank based on Laboratory testing and a provider order. sodium chloride (PF) 0.9% PF flush 3 mL 3 mL, Intracatheter, EVERY 1 HOUR PRN, l ine flush, Starting on 07/14/16 at 0735, for peripheral IV flush post IV meds sodium chloride (PF) 0.9% PF flush 3 mL 3 mL, Intracatheter, EVERY 8 HOURS, Firs t dose on 07/14/16 at 0737, And Q1H PRN, to lock peripheral IV dormant line. documented in this encounter Active and Recently Administered Medications Times are shown in CDT. Scheduled Medication Order 07/12/2016 07/13/2016 07/14/2016 sodium chloride (PF) 0.9% PF flush 3 mL 0737 (Canceled Entry - Provider: Orders Generic Provider - Comment: Automatically canceled at discontinue of medication order) 3 mL, Intracatheter, EVERY 8 HOURS, Firs t dose on 07/14/16 at 0737, And Q1H PRN, to lock peripheral IV dormant line. PRN Medication Order 07/12/2016 07/13/2016 07/14/2016 Blood Bank will determine if patient is eligible for and the proper dosage of Rho (D) immune globulin (RhoGam) CONTINUOUS PRN, Starting 07/14/16 at 0736, Until 07/14/16 at 1133, Blood Bank will determine if patient is eligible for and the proper dosage of Rho (D) immune globulin (RhoGam) based on laborator y results and will enter appropriate dos ing order. If appropriate dose is greater than the standard dose (300 mcg), provider will be notified. lidocaine (LMX4) kit Topical, EVERY 1 HOUR PRN, pain, with VA D insertion or accessing implanted port,, Starting 07/14/16 at 0735, For 1 dose, Do NOT give if patient has a history of allergy to any local anesthetic or any sherita product. Apply 30 minutes prior to VAD insertion or port access. MAX Dose: 2.5 g (?? of 5 g tube) lidocaine 1 % 1 mL 1 mL, Other, EVERY 1 HOUR PRN, mild pain with VAD insertion or accessing implanted port,, Starting 07/14/16 at 0735, Do NOT give if patient has a history of allergy to any local anesthetic or any ca ine product. MAX dose 1 mL subcutaneous OR intradermal in divid ed doses. NO Rho (D) immune globulin (RhoGam) needed - mother INELIGIBLE CONTINUOUS PRN, Starting 07/14/16 at 0824, Until 07/14/16 at 1133, NO Rho (D) immune globulin (RhoGam) needed - mother INELIGIBLE. This order was placed by Blood Bank based on Laboratory testing and a provider order. sodium chloride (PF) 0.9% PF flush 3 mL 3 mL, Intracatheter, EVERY 1 HOUR PRN, l ine flush, Starting 07/14/16 at 0735, for peripheral IV flush post IV meds documented in this encounter Care Teams Registered Medical Assistant Relationship Specialty Start Date End Date Clinic, [facility] PCP - General 07/14/16 12/06/[address] [place] [id number] documented as of this encounter
--- OUTSIDE RECORDS SUMMARY | 2021-11-10 00:45 | XMS_ITS | Encounter Summary ---
:1980 Author Organization [facility] Address [address] [place] [address]. [place] [address] Care Team Providers Name Role Phone Clinic, [facility] Primary Care Provide r Encounter Details Date Type Department Care Team Description 07/14/2016 Telephone [facility] Nurse Jackeline Serrano, Advisors RN [address] [place] [phone] Social History Tobacco Use Types Packs/Day Years Used Date Current Every Day Smoker Cigarettes 0.1 10 Smokeless Tobacco: Never Used Comments: 5 cigarettes a day Alcohol Use Standard Drinks/Week Comments No 0 (1 standard drink = 0.6 oz pure alcoho l) Sex Assigned at Date Recorded Female 01/14/2020 10:57 AM [employer] documented as of this encounter Miscellaneous Notes Telephone Encounter - Jackeline Serrano, RN - 07/14/2016 6:10 AM CDT Call Type: Triage Call Presenting Problem: Patient is 6.4 weeks , had ruff sex and is now bleeding. Passing blood clots. Triaged for : spontaneous termination, less than 20 weeks. Triage Note: Guideline Title: : Spontaneous Termination, Less Than 20 Weeks Recommended Disposition: See ED Immediately Original Inclination: Wanted to speak with a nurse Override Disposition: Intended Action: Go to Hospital / ED Physician Contacted: No Passing tissue from the vagina ? YES Moderate vaginal bleeding ? NO Vaginal bleeding AND greater than 20 weeks gestation ? NO Experiencing contractions AND 20-37 weeks gestation ? NO Abdominal pain AND greater than 20 weeks gestation ? NO New or worsening signs and symptoms that may indicate shock ? NO More than 37 weeks gestation AND contractions ? NO Recent positive test or menses late AND new onset of pain on top or back of shoulders ? NO Unbearable abdominal, pelvic or back pain ? NO Heavy vaginal bleeding (soaking 1 pad every hour for 2 hours or more) ? NO Continuous bright red vaginal bleeding for more than 15 minutes (more than spotting) ? NO Persistent dizziness OR lightheadedness that does not resolve within ten minutes ? NO Physician Instructions: Care Advice: Another adult should drive. Do not give the patient anything to eat or drink. Bring any tissue that has passed for examination by provider. Call EMS 911 if signs and symptoms of shock develop (such as unable to stand due to faintness, dizziness, or lightheadedness new onset of confusion slow to respond or difficult to awaken skin is pale, leigh, cool, or moist to touch severe weakness loss of consciousness). CALL EMS 911 if either of these occur: increased bright red vaginal bleeding or continuous (without relaxation) abdominal pain. IMMEDIATE ACTION Write down provider's name. List or place the following in a bag for transport with the patient: current prescription and/or nonprescription medications alternative treatments, therapies and medications and street drugs. Refrain from douching, using feminine hygiene sprays, scented deodorant tampons, or nonprescription intravaginal medication until evaluated by a provider. Tell provider if known to be Rh-negative and have not received Rh o(D) immune globulin. Rh o(D) immune globulin must be administered within 72 hours of termination. documented in this encounter Plan of Treatment Upcoming Encounters Date Type Specialty Care Team Description 11/15/2021 Office Visit Wound Care Luis Camara DPM [address] [place], [place] [id number] (Wo [id number]) documented as of this encounter Visit Diagnoses Not on filedocumented in this encounter Care Teams Sheriff'S Detective Relationship Specialty Start Date End Date Clinic, [facility] PCP - General 07/14/16 12/06/[address] [place] [id number] documented as of this encounter
--- OUTSIDE RECORDS SUMMARY | 2021-11-10 00:45 | XMS_ITS | Encounter Summary ---
:1980 Author Organization [facility] Address [address] [place] [address]. 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 Possible Miscarriage (Threatened ) You may be having a miscarriage. Common signs of a miscarriage are pain and bleeding.??A small amount of bleeding can be normal during the first 3 months of . Often the pain and bleeding stop, and you have a normal and baby.??But heavy bleeding or severe cramping can be an early sign of miscarriage. A miscarriage me ans??an??unexpected loss of your . At this time, your healthcare provider doesn???t know whether you will have a miscarriage, or if things will clear up and your will continue normally. This can be emotionally difficult. Thereis little that can be done to change the way you feel. But??understand that miscarriages are common. About 1 or 2 out of every [address] Some even end before you know you are . This happens for a number of reasons, and usually the cause is never known. It???s important you know that it is not your fault. It didn???t happen because you did anything wrong. Having sex or exercising does not cause a miscarriage. These activities are usually safe unless you have pain or bleeding or your doctor tells you to stop. Even minor falls won???t cause a miscarriage.Miscarriages happen because things were not developing as they were supposed to. No medicine can prevent a miscarriage. Again, understand that things are uncertain right now. You may still have some bleeding. This may belight spotting or like a period, and you may pass some tissue. You may have some cramping. This is why follow-up care is important. Home care To improve the chance of keeping??your , you should take these steps: ?? Rest in bed until the pain and bleeding stop. ?? Don???t have sex until your healthcare provider says it???s OK. ?? Use sanitary napkins instead of tampons. ?? Don???t douche. ?? Don???t take aspirin, ibuprofen, or naproxen. ?? Don???t have alcoholic or caffeinated beverages or smoke. Follow-up care Make an appointment with your doctor within the next week, or as directed. If you had an ultrasound,??a radiologist??will??review??it.??You will be told of any new findings that may affect your care. Call 911 Call 911 if you have: ?? Severe pain and very heavy bleeding ?? Severe lightheadedness, passing out, or fainting ?? Rapid heart rate ?? Difficulty breathing ?? Confusion or difficulty waking up When to seek medical advice Call your healthcare provider right away??if any of these occur: ?? Vaginal bleeding or pain that lasts for more than 3 days ?? Heavy bleeding. This means soaking 1 new pad an hour over 3 hours. ?? Fever of 100.4??F (38??C) or higher, or as directed by your healthcare provider ?? Pain in your lower belly (abdomen) that gets worse ?? Weakness or dizziness ?? Passage of anything that resembles tissue. This would be pink or grayish membrane or solid material. Save the tissue in a clean container and bring it to your provider. Date Last Reviewed: 10/19/2015 ?? [id number] [employer]. [address] [place] [address], [place] [address]. All rights reserved. This information is not intended as a substitute for professional medical care. Always follow your healthcare professional's instructions. documented in this encounter Medications at Time [...] as of this encounter ED Notes Antonella Medrano RN - 08/29/2016 2:45 PM CDT Patient is concerned that her cervix could be opening. She states she had a prior miscarriage at 19 weeks from the cervix opening. Antonella Medrano RN - 08/29/2016 2:40 PM CDT Patient is 13 weeks . Patient was brought to the ER by EMS for vaginal bleeding with bright red blood after having intercourse at 1300 today. She has filled two pads and is not having any pain.She states she was filling the toilet with blood. ABCs intact. Patient is alert and oriented x3. Sarah Escobedo RN - 08/29/2016 2:39 PM CDT Bed: ED01 Expected date: 08/29/16 Expected time: 2:29 PM Means of arrival: Ambulance Comments: [id number] 35 yo F vag bleed Jj Hermosillo DO - 08/29/2016 2:38 PM CDT History Chief Complaint: Vaginal Bleeding The history is provided by the patient. Stephani King is a 35 year old A4 female with a history of complications, anxiety, and depression who presents to the emergency department via EMS for evaluation of vaginal bleeding. The patient reports she is 13 weeks and follows at [facility]. She reports a history of complications, including a ruptured uterus during one delivery, her cervix opening up at 19 weeks in another, and still births. Regarding this current , the 8 week ultrasound showeddemise of twin B but reported a healthy twin A. The onset of a significant amount of vaginal bleeding saturating adult diapers prompted the patient to seek evaluation here in the emergency department given her history of complications. The patient expresses concern about being able to keep this and fears her uterus is opening up again. She denies vomiting, burning with urination, and urgency and frequency changes. She denies any prior abdominal surgeries but reports family history of cholecystomy. 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 Genitourinary: Positive for vaginal bleeding. Negative for difficulty urinating and dysuria. All other systems reviewed and are negative. Physical Exam First Vitals: BP: 132/80 Pulse: 96 Temp: 98 ??F (36.7 ??C) Resp: 20 Weight: 79.4 kg (175 lb) SpO2: 98 % Physical Exam Constitutional: Patient appears well-developed and well-nourished. Patient is in mild distress HENT: Head: No external signs of trauma noted. Eyes: Conjunctivae are normal. Pupils are equal, round, and reactive to light. Cardiovascular: Normal rate, regular rhythm and normal heart sounds. Exam reveals no friction rub. No murmur heard. Pulmonary/Chest: Effort normal and breath sounds normal. No respiratory distress. There are no wheezes. There are no rales. Abdominal: Soft. Bowel sounds normal. There is no distension. There is no tenderness. There is no rebound or guarding. (Chaperoned): Vulva: No external lesions, normal hair distribution, no adenopathy Vagina: Moist, pink, blood and clots in the vaginal vault, well rugated, no lesions Cervix: Difficult to visualize. Smooth, pink, no visible lesions, no CMT. No gross dilation observed on my exam Uterus: Normal size, non-tender, mobile Ovaries: No mass, non-tender, mobile Cultures for GC, Chlamydia, and Trichomonas were taken Musculoskeletal: Normal range of motion. Normal Tone Neurological: Patient is alert and oriented to person, place, and time. Skin: Skin is warm and dry. Patient is not diaphoretic. Emergency Department Course Imaging: Radiographic findings were communicated with the patient who voiced understanding of the findings. US OB < 17 Weeks Single W Transvaginal: 1. Single live intrauterine measuring 13 weeks 4 days gestational age. 2. Small subchorionic hemorrhage superior to the gestational sac. 3. There is again demise of a twin. As per radiology. Laboratory: CBC: WBC: 6.6, HGB: 1.9 (L), PLT: 163 BMP: Potassium 2.9 (L), Calcium 8.2 (L), o/w WNL (Creatinine: 0.70) ABO/Rh type and screen: B+ Wet prep: No PMN's seen; No Trichomonas seen; No clue cells seen; No yeast seen Chlamydia trachomatis:pending Neisseria gonorrhea:pending Interventions: 1838 Potassium chloride 40 mEq PO Emergency Department Course: Nursing [...] findings above. The patient was sent for OB ultrasound while in the emergency department, findings above. The patient underwent a pelvic exam while in the emergency department, findings above. 1829 I consulted with Mark Turner CNM, regarding the patient's history and presentation here in theemergency department. 1838 I rechecked the patient and discussed the results of their workup thus far. Findings and plan explained to the Patient and spouse. Patient discharged home with instructions regarding supportive care, medications, and reasons to return. The importance of close follow-up was reviewed. I personally reviewed the laboratory results with the Patient and spouse and answered all related questions prior to discharge. Impression & Plan Medical Decision Making: Stephani King is a 35 year old female who presents for the evaluation for vaginal bleeding. Pleasesee the [facility] for specifics. Her workup in the ED included an ultrasound and pelvic exam. Those results are above. I discussed the case with the patient's nurse customer relations assistant out of [facility]. They believe she can be discharged, but they will have their nurses call her and schedule a very close follow up appointment with them and/or internal medicine for consideration of a possible cerclage. Anticipatory guidance was given prior to discharge. Diagnosis: ICD-10-CM 1. Abnormal vaginal bleeding N93.9 2. Threatened miscarriage O20.0 Disposition: discharged to home IAreli, am serving as a scribe on 08/29/2016 at 3:07 PM to personally document services performed by Jj Hermosillo DO based on my observations and the provider's statements to me. Areli Morejon 08/29/2016 [facility] EMERGENCY DEPARTMENT Jj Hermosillo DO 08/29/162 documented in this encounter Plan of Treatment Upcoming Encounters Date Type Specialty Care Team Description 11/15/2021 Office Visit Wound Care Luis Camara DPM [address] [place] [address] (Wo rk) documented as of this encounter Procedures Procedure Name Priority Date/Time Associated Comments Diagnosis WET PREPARATION STAT 08/29/2016 5:30 PM Result s for this CDT procedure are i n the results section. NEISSERIA GONORRHOEAE STAT 08/29/2016 5:30 PM Abnormal vagi nal Results for this PCR CDT bleeding procedure are i n the results section. CHLAMYDIA TRACHOMATIS STAT 08/29/2016 5:30 PM Abnormal vagi nal Results for this PCR CDT bleeding procedure are i n the results section. US OB < 14 WEEKS STAT 08/29/2016 4:15 PM Resul ts for this SINGLE-TRANSABDOMINAL CDT proced ure are in the results section. CBC WITH PLATELETS & STAT 08/29/2016 3:04 PM R esults for this DIFFERENTIAL CDT procedure are i n the results section. ABO/RH TYPE AND Routine 08/29/2016 3:04 PM Result s for this SCREEN CDT procedure are i n the results section. BASIC METABOLIC PANEL STAT 08/29/2016 3:04 PM Results for this CDT procedure are i n the results section. documented in this encounter Results Neisseria gonorrhoea PCR (08/29/2016 5:30 PM CDT) [employer] Method Time Signature Specimen Vagina [facility] N Gonorrhea Negative NEG MICRO RAPID PCR Negative for N. gonorrhoeae rRNA by transcripti on mediated amplification. TESTING LAB A negative result by transc ription mediated amplification does not preclude the presence of N. gonorrhoeae infection because re sults are dependent on proper and adequate collection, absence of inhibitors, and suffici ent rRNA to be detected. Specimen Anatomical Collection Method Collection Time Receive d Time (Source) Location / / Volume Laterality Vaginal swab 08/29/2016 5:30 PM 7 5:42 (specimen) CDT PM CDT Jj Hermosillo DO LAB - MICRO GENERAL ORDERABL ES Performing Organization Address City/State/ZIP Code Phon e Number MICRO RAPID TESTING LAB [address] [place] [address] [facility] [address] [place], [place] [address] [facility] [phone] Chlamydia trachomatis PCR (08/29/2016 5:30 PM CDT) Component Value Ref Test Analysis Performed At [employer] Method Time Signature Specimen Vagina [facility] Chlamydia Negative NEG MICRO RAPID Trachomatis PCR Negative for C. trachomatis rRNA by chipper mediated amplification. TESTING LAB A negative result by transc ription mediated amplification does not preclude the presence of C. trachomatis infection because re sults are dependent on proper and adequate collection, absence of inhibitors, and suffici ent rRNA to be detected. Specimen Anatomical Collection Method Collection Time Receive d Time (Source) Location / / Volume Laterality Vaginal swab 08/29/2016 5:30 PM 7 5:42 (specimen) CDT PM CDT Jj Hermosillo DO LAB - MICRO GENERAL ORDERABL ES Performing Organization Address City/State/ZIP Code Phon e Number MICRO RAPID TESTING LAB [address] [place] [address] [facility] [address] [place], [place] [address], [facility] [phone] Wet prep (08/29/2016 5:30 PM CDT) [facility] Method Time Signature Specimen Vagina [facility] Wet Prep Few PMNs seen [place] No Trichomonas seen [facility] No yeast seen [facility] No clue cells seen Micro Report FINAL [place] Status 08/29/2016 [facility] Specimen Anatomical Collection Method Collection Time Receive d Time (Source) Location / / Volume Laterality Vaginal swab 08/29/2016 5:30 PM 7 5:41 (specimen) CDT PM CDT Jj [place] [facility] LAB - MICRO GENERAL ORDERABL ES Performing Organization Address [facility] Phon e Number [place] [address] [place], [place] [address] [facility] [address] [place], [place] [address], [facility] [phone] OB < 14 Weeks Single (08/29/2016 4:15 PM CDT) Anatomical Region Laterality Modality Abdomen/Pelvis Ultrasound Specimen (Source) Anatomical Location Collection Method / Collectio n Time Received Time / Laterality Volume Impressions 08/29/2016 4:26 PM CDT IMPRESSION: 1. Single live intrauterine me asuring 13 weeks 4 days gestational age. 2. Small subchorionic hemorrhage superio r to the gestational sac. 3. There is again demise of a twin . GRETCHEN JESSICA MD Narrative 08/29/2016 4:26 PM CDT ULTRASOUND OBSTETRIC LESS THAN 14 WEEKS SINGLE ??08/29/2016 4:15 PM HISTORY: with vaginal bleeding and cramping. COMPARISON: 07/28/2016. FINDINGS: Presentation: Cephalic. Cardiac activity: 169 bpm. Regular rhyth m. Movement: Unremarkable. Placenta: Posterior. No evidence for harinder centa previa. Adnexa: Unremarkable. Cervical length: Not measured. Amniotic fluid: Unremarkable. Other findings: There is a subchorionic hemorrhage superior to the gestational sac measuring 2.5 x 5.0 x 1. 6 cm. There is again a small gestational sac with a demise cons istent with a failed twin as seen on the previous exam. A complete anatomy scan was not performe d. Measured parameters: ? BPD: ??2.2 cm ?Age: 13 wee ks 5 days. ? HC: ?8.4 cm ?Age: 13 w eeks 5 days. ? AC: ??7.2 cm ?Age: 13 week s 5 days. ? FL: ?? 1.1 cm ?Age: 13 wee ks 1 day. Gestational age by current ultrasound me asurement: 13 weeks 4 days, corresponding to an JEAN MARIE of 03/02/2017. Procedure Note StrandGretchen MD - 08/29/2016Form atting of this note might be different from the original. ULTRASOUND OBSTETRIC LESS THAN 14 WEEKS SINGLE 08/29/2016 4:15 PM HISTORY: with vaginal bleeding and cramping. COMPARISON: 07/28/2016. FINDINGS: Presentation: Cephalic. Cardiac activity: 169 bpm. Regular rhyth m. Movement: Unremarkable. Placenta: Posterior. No evidence for harinder centa previa. Adnexa: Unremarkable. Cervical length: Not measured. Amniotic fluid: Unremarkable. Other findings: There is a subchorionic hemorrhage superior to the gestational sac measuring 2.5 x 5.0 x 1. 6 cm. There is again a small gestational sac with a demise cons istent with a failed twin as seen on the previous exam. A complete anatomy scan was not performe d. Measured parameters: BPD: 2.2 cm Age: 13 weeks 5 days. HC: 8.4 cm Age: 13 weeks 5 days. AC: 7.2 cm Age: 13 weeks 5 days. FL: 1.1 cm Age: 13 weeks 1 day. Gestational age by current ultrasound me asurement: 13 weeks 4 days, corresponding to an JEAN MARIE of 03/02/2017. IMPRESSION: 1. Single live intrauterine me asuring 13 weeks 4 days gestational age. 2. Small subchorionic hemorrhage superio r to the gestational sac. 3. There is again demise of a twin . GRETCHEN JESSICA MD Jj Hermosillo DO IMG US ORDERABLES ABO/Rh type and screen (08/29/2016 3:04 PM CDT) [facility] Method Time Signature ABO B [facility] RH(D) Pos [facility] Antibody Neg [place] Screen [facility] Test Valid [facility] Only At [facility] Specimen 09/01/2016 [place] Expires [facility] Specimen Anatomical Collection Method Collection Time Receive d Time (Source) Location / / Volume Laterality Blood specimen 08/29/2016 3:04 PM 017 5:13 (specimen) CDT PM CDT Jj Hermosillo DO LAB - BLOOD BANK TEST ORDER Performing Organization Address City/State/ZIP Code Phon e Number M [facility] [address] [place] [address] [facility] [address] [place] [phone] (ABNORMAL) Basic metabolic panel (08/29/2016 3:04 PM CDT) [facility] Method Time Signature Sodium 136 133 - 144 [place] mmol/L [facility] Potassium 2.9 (L) 3.4 - 5.3 [place] mmol/L [facility] Chloride 104 94 - 109 [place] mmol/L [facility] Carbon Dioxide 23 20 - 32 [place] mmol/L [facility] Anion Gap 9 3 - 14 [place] mmol/L [facility] Glucose 88 70 - 99 [place] mg/dL [facility] Urea Nitrogen 7 7 - 30 [place] mg/dL [facility] Creatinine 0.70 0.52 - [place] 1.04 [facility] mg/dL [facility] GFR Estimate >90 >60 [place] Non GFR Calc mL/min/1. [address] GFR Estimate >90 >60 [place] If Black GFR Calc mL/min/1. [facility] Calcium 8.2 (L) 8.5 - [place] 10.1 [facility] mg/dL HOSPITAL Specimen Anatomical Collection Method Collection Time Receive d Time (Source) Location / / Volume Laterality Blood specimen 08/29/2016 3:04 PM 017 3:22 (specimen) CDT PM CDT Jj Hermosillo DO LAB - BLOOD ORDERABLES Performing Organization Address City/State/ZIP Code Phon e Number [facility] [address] [place], [place] [address] [phone] HOSPITAL [facility] [address] [phone] (ABNORMAL) CBC with platelets differential (08/29/2016 3:04 PM CDT) [facility] gist Method Time Signature WBC 6.6 4.0 - [place] 11.0 [facility] 10e9/L [facility] RBC Count 3.48 (L) 3.8 - 5.2 [place] 10e12/L [facility] Hemoglobin 10.9 (L) 11.7 - [place] 15.7 g/dL [facility] Hematocrit 31.9 (L) 35.0 - [place] 47.0 % [facility] MCV 92 78 - 100 [facility] MCH 31.3 26.5 - [place] 33.0 pg [facility] MCHC 34.2 31.5 - [place] 36.5 g/dL [facility] RDW 12.2 10.0 - [place] 15.0 % [facility] Platelet Count 163 150 - 450 [place] 10e9/L [facility] Diff Method Automated [place] Method [facility] % Neutrophils 57.1 % [facility] % Lymphocytes 31.2 % [facility] % Monocytes 7.4 % [facility] % Eosinophils 3.8 % [facility] % Basophils 0.2 % [facility] % Immature 0.3 % [place] Granulocytes [facility] Nucleated RBCs 0 0 /100 [facility] Absolute 3.8 1.6 - 8.3 [place] Neutrophil 10e9/L [facility] Absolute 2.1 0.8 - 5.3 [place] Lymphocytes 10e9/L [facility] Absolute 0.5 0.0 - 1.3 [place] Monocytes 10e9/L [facility] Absolute 0.3 0.0 - 0.7 [place] Eosinophils 10e9/L [facility] Absolute 0.0 0.0 - 0.2 [place] Basophils 10e9/L [facility] Abs Immature 0.0 0 - 0.4 [place] Granulocytes 10e9/L [facility] Absolute 0.0 [place] Nucleated RBC [facility] Specimen Anatomical Collection Method Collection Time Receive d Time (Source) Location / / Volume Laterality Blood specimen 08/29/2016 3:04 PM 017 3:22 (specimen) CDT PM CDT Jj Hermosillo DO LAB - BLOOD ORDERABLES Performing Organization Address City/State/ZIP Code Phon e Number [place] [address] [place] [address] [facility] [address] [phone] documented in this encounter Visit Diagnoses Diagnosis Abnormal vaginal bleeding Other specified noninflammatory disorder of vagina Threatened miscarriage Threatened , unspecified as to e pisode of care documented in this encounter Administered Medications Inactive Administered Medications - up to 3 most recent administrations Medication Order MAR Action Action Date Dose Rate Site 0.9% sodium chloride infusion at 125 mL/hr, Intravenous, CONTINUOUS, A dminister after the bolus., Starting on Zoe 08/29/16 at 1517, Until Zoe 08/29/16 at 2050 lidocaine (LMX4) kit Topical, EVERY 1 HOUR PRN, pain, with VA D insertion or accessing implanted port., Starting on Zoe 08/29/16 at 1515, Do NOT give if patient has a history of allergy to any local anesthetic or any sherita product. Apply 30 minutes prior to VAD insertion or port access. MAX Dose: 2.5 g (?? of 5 g t ube) lidocaine 1 % 1 mL 1 mL, Other, EVERY 1 HOUR PRN, mild pain with VAD insertion or accessing implanted port, Starting on Zoe 08/29/16 at 1515, Do NOT give if patient has a history of allergy to any local anesthetic or any sherita product. MAX dose 1 mL subcutaneous OR intradermal in divided doses. potassium chloride SA (K-DUR/KLOR-CON M) CR Given 08/29/2016 6:38 PM CDT 40 mEq tablet 40 mEq 40 mEq, Oral, ONCE, On Zoe 08/29/16 at 1824, For 1 dose, DO NOT CRUSH sodium chloride (PF) 0.9% PF flush 3 mL 3 mL, Intracatheter, EVERY 1 HOUR PRN, l ine flush, for peripheral IV flush post IV meds, Starting on Zoe 08/29/16 at 1515 sodium chloride (PF) 0.9% PF flush 3 mL 3 mL, Intracatheter, EVERY 8 HOURS, Firs t dose on Zoe 08/29/16 at 1517, And Q1H PRN, to lock peripheral IV dormant line. documented in this encounter Active and Recently Administered Medications Times are shown in CDT. Scheduled Medication Order 08/27/2016 08/28/2016 08/29/2016 0.9% sodium chloride BOLUS 1517 (Canceled Entry - Provider: Orders Generic Provider - Comment: Automatically canceled at discontinue of medication order) Intravenous, 1,000 mL, ONCE, at 1,000 mL /hr, Administer over 1 Hours, Zoe 08/29/16 at 1517, For 1 dose potassium chloride SA (K-DUR/KLOR-CON M) CR tablet 40 mEq (COMPL ETED) 1838 (Given - Provider: Lisa Loving RN) 40 mEq, Oral, ONCE, On Zoe 08/29/16 at 1824, For 1 dose, DO NOT C DANIELS sodium chloride (PF) 0.9% PF flush 3 mL 1517 (Canceled Entry - Provider: Orders Generic Provider - Comment: Automatically canceled at discontinue of medication order) 3 mL, Intracatheter, EVERY 8 HOURS, Firs t dose on Zoe 08/29/16 at 1517, And Q1H PRN, to lock peripheral IV dormant line. Continuous Medication Order 08/27/2016 08/28/2016 08/29/2016 0.9% sodium chloride infusion 15 17 (Canceled Entry - Provider: Orders Generic Provider - Comment: Automatically canceled at discontinue of medication order) at 125 mL/hr, Intravenous, CONTINUOUS, A dminister after the bolus., Starting Zoe 08/29/16 at 1517, Until Zoe 08/29/16 at 2051 PRN Medication Order 08/27/2016 08/28/2016 08/29/2016 lidocaine (LMX4) kit Topical, EVERY 1 HOUR PRN, pain, with VA D insertion or accessing implanted port., Starting Zoe 08/29/16 at 1515, Do NOT give if patient has a history of allergy to any local anesthetic or any sherita pro duct. Apply 30 minutes prior to VAD inse rtion or port access. MAX Dose: 2.5 g (?? of 5 g tube) lidocaine 1 % 1 mL 1 mL, Other, EVERY 1 HOUR PRN, mild pain with VAD insertion or accessing implanted port, Starting Zoe 08/29/16 at 1515, Do NOT give if patient has a history of allergy to any local anesthetic or any ervin ne product. MAX dose 1 mL subcutaneous OR intradermal in divide d doses. sodium chloride (PF) 0.9% PF flush 3 mL 3 mL, Intracatheter, EVERY 1 HOUR PRN, l ine flush, for peripheral IV flush post IV meds, Starting Zoe 08/29/16 at 1515 documented in this encounter Care Teams Last Waxer Relationship Specialty Start Date End Date [facility] PCP - General 07/14/16 12/06/[address] [place] [address] documented as of this encounter
--- OUTSIDE RECORDS SUMMARY | 2021-11-10 00:45 | XMS_ITS | Encounter Summary ---
:1980 Author Organization [place] Address [facility] [place] [address] Care Team Providers Name Role Phone Clinic, [facility] Primary Care Provide r Reason for Visit Reason Onset Date Comments Clinic Care Coordination - Follow-up 08/30/2016 NOB [place] Encounter Details Date Type Department Care Team Description 08/30/2016 Telephone [facility] Nurse, p [facility] Clinic Care Coordination Clinic [place] - Follow-up (NOB [place]) [address] [facility] [address] [place] [address] Social History Tobacco Use Types [...] at Date Recorded Female 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 Mark will see patient today 08/30 at 3pm. Left message for patient to call back. documented in this encounter Plan of Treatment Upcoming Encounters Date Type Specialty Care Team Description 11/15/2021 Office Visit Wound Care Luis Camara DPM [address] [place] [address] (Wo rk) documented as of this encounter Visit Diagnoses Not on filedocumented in this encounter Care Teams Access Liaison Relationship Specialty Start Date End Date Clinic, [facility] PCP - General 07/14/16 12/06/[address] [place] [address] documented as of this encounter
--- OUTSIDE RECORDS SUMMARY | 2021-11-10 00:45 | XMS_ITS | Encounter Summary ---
:1980 Author Organization [place] Address [facility] [place] [address] Care Team Providers Name Role Phone Clinic, [facility] Primary Care Provide r Reason for Visit - Closed Specialty Diagnoses / Procedures Referred By Contact Refer red To Contact Diagnoses Supervision of high-risk , first trimester Ur Maternal Med [address] [place] [address] Referral ID Status Reason Start Date Expiration Date Visits Requ ested Visits Authorized [id number] Closed 08/22/2016 08/22/2017 1 1 Encounter Details Date Type Department Care Team Description 08/22/2016 Office Visit [facility] Ilana Patel MD [address] [id number] Canceled (Patient) Maternal Medicine Italia Galarza DO [address] [address] [facility] [address] [place], [place] [address] Social History Tobacco Use Types [...] at Date Recorded Female 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
--- OUTSIDE RECORDS SUMMARY | 2021-11-10 00:45 | XMS_ITS | Encounter Summary ---
:1980 Author Organization [place] Address [address] [facility] 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 Phone Number Patient can be reached at: Home number on file [phone] (home) Best Time: Anytime Can we leave a detailed message on this number? YES Call taken on 08/12/2016 at 10:28 AM by Dora Merchant documented in this encounter Plan of Treatment Upcoming Encounters Date Type Specialty Care Team Description 11/15/2021 Office Visit Wound Care Luis Camara DPM [address] [place] [address] (Wo rk) documented as of this encounter Visit Diagnoses Not on filedocumented in this encounter Care Teams O And M Supervisor Relationship Specialty Start Date End Date Clinic, [facility] PCP - General 07/14/16 12/06/[address] [place] [address] documented as of this encounter
--- OUTSIDE RECORDS SUMMARY | 2021-11-10 00:45 | XMS_ITS | Encounter Summary ---
:1980 Author Organization [place] Address [facility] [place] [address] Care Team Providers Name Role Phone Clinic, [facility] Primary Care Provide r Reason for Referral - Closed Specialty Diagnoses / Procedures Referred By Contact Refer red To Contact Diagnoses Supervision of high-risk , first trimester Ur Maternal Med [address] [place], [place] [address] Referral ID Status Reason Start Date Expiration Date Visits Requ ested Visits Authorized [id number] Closed 08/22/2016 08/22/2017 1 1 Encounter Details Date Type Department Care Team Description 07/18/2016 Orders Only [facility] Anabelle Thomas rvision of Maternal GENARO Norris high-risk pre gnancy, Medicine Center [facility] (Primary Dx) [address] [place], [place] [address] Social History Tobacco Use Types Packs/Day Years Used Date Current Every Day Smoker Cigarettes 0.1 10 Smokeless Tobacco: Never Used Comments: 5 cigarettes a day Alcohol Use Standard Drinks/Week Comments No 0 (1 standard drink = 0.6 oz pure alcoho l) Sex Assigned at Date Recorded Female 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 Name: STEPHANI REDDY Study Date: 12:12pm Pat. NO: [id number] Referring ??: RICHARD STEIN Site: [facility] Rack Puller: Mayela Teague RD : 1980 Age: 35 INDICATION Vaginal bleeding [...] BIOMETRY CRL ?82.6 ?mm ?14w [facility]d [facility] ? bpm ? ANATOMY The [...] report will follow that visit. Procedure Note Lex Woods MD - 09/10/2016Format ting of this note might be different from the original. 1st Trim Pat. Name:Elizabeth REDDY Date:09/10 12:12pm Pat. NO: [id number] MD:May RIK [facility]Mayela Teague RDMS :1980Age:35 INDICATION Vaginal bleeding , [...] long without fun neling. Lashawn Patel MD [facility] US ORDERABLES documented in this encounter Visit Diagnoses Diagnosis Supervision of high-risk , firs t trimester - Primary Supervision of high-risk , firs t trimester documented in this encounter Care Teams Dry Chain Operator Relationship Specialty Start Date End Date [facility], [facility] PCP - General 07/14/16 12/06/[address] [place] [address] documented as of this encounter
--- OUTSIDE RECORDS SUMMARY | 2021-11-10 00:46 | XMS_ITS | Encounter Summary ---
:1980 Author Organization [place] Address [address] [place] [address] Care Team Providers Name Role Phone System, Provider Not In Primary Care Provider Unavailable Reason for Visit Reason Comments Recheck Medication Encounter Details Date Type Department Care Team Description 04/09/2016 Office Visit [facility] [place] Alfredo Uncomplic ated opioid dependence (H); Clinic Ashly Gauthier MD Major depressive disorder, recurrent epi sode, moderate (H) [address] [place] [address] [place] [phone] Social History Tobacco Use Types Packs/Day Years Used Date Current Every Day Smoker Cigarettes 0.1 10 Smokeless Tobacco: Never Used Comments: 5 cigarettes a day Alcohol Use Standard Drinks/Week Comments No 0 (1 standard drink = 0.6 oz pure alcoho l) Sex Assigned at Date Recorded Female 01/14/2020 10:57 AM HEAD OF SCIENCE documented as of this encounter Last Filed Vital Signs Vital Sign Reading Time Taken Comments Blood Pressure 133/87 04/09/2016 10:36 AM HEAD OF SCIENCE Pulse 87 04/09/2016 10:35 AM HEAD OF SCIENCE Temperature 36.8 ??C (98.2 ??F) 04/09/2016 10:35 AM HEAD OF SCIENCE Respiratory Rate 20 04/09/2016 10:35 AM HEAD OF SCIENCE Oxygen Saturation 94% 04/09/2016 10:35 AM HEAD OF SCIENCE Inhaled Oxygen Concentration - - Weight 83 kg (183 lb) 04/09/2016 10:35 AM HEAD OF SCIENCE Height - - Body Mass Index 29.99 01/07/2013 11:29 AM HEAD OF SCIENCE documented in this encounter Progress Notes Edgar Alfredo MD - 04/09/2016 10:15 AM CST SUBJECTIVE: Stephani King is a 35 year old female who presents to clinic today for the following health issues: OPIOID USE DISORDER - SUBOXONE FOLLOW UP: CURRENT DOSE: 10 MG DAILY NO CHANGE NOT WANTING TO DECREASE SUBOXONE CALMER CONTINUE SAME MANY QUESTIONS RE: HEPATITIS C WAS TOLD YEARS AGO SHE HAD IT NEEDS EVALUATION, TREATMENT WILL CHECK SOME LABS STABLE OTHERWISE Status since last visit: Since last visit [...] been going to recovery meetings:not at all. [place] Board [employer] Pharmacy Data Base Reviewed: YES; NO ISSUES; CHECKED 04/09/16 Problem list and histories reviewed & adjusted, [...] 5 times daily 140 tablet 1 ??? loratadine (CLARITIN) 10 MG [...] Take 1 tablet by mouth daily ??? Xmndvgxy-Bvo-Xj-FA ( VITAMINS) 0.8 MG TABS Take 1 tablet by mouth daily 30 tablet 6 ??? [DISCONTINUED] WELLBUTRIN SR 150 MG 12 hr tablet Take 1 tablet (150 mg) by mouth 2 times daily 60 tablet 1 ??? [DISCONTINUED] VITAMINS PO Take by mouth. No Known Allergies Labs reviewed in EPIC OBJECTIVE: BP 133/87 (BP Location: Left arm) Pulse 87 Temp 98.2 ??F (36.8 ??C) (Oral) Resp 20 Wt 183 lb (83 kg)SpO2 94% BMI 29.99 kg/m2 Body mass index is 29.99 kg/(m^2). ROS: Constitutional, HEENT, cardiovascular, pulmonary, gi [...] orders placed or performed in visit on 04/09/16 Buprenorphine Qual Urine Result Value Ref Range Buprenorphine Qual Urine Positive Drug abuse screen (NL, RW) Result Value Ref Range Methamphetamine Qual Urine NEG Negative Cutoff for a negative methamphetamine is 1000 ng/mL or less. Cocaine Qual Urine NEG Negative Cutoff for a negative cocaine is 300 ng/mL or less. Cannabinoids Qual Urine NEG Negative Cutoff for a negative cannabinoid is 50 ng/mL or less. MDMA Qual Urine NEG Negative Cutoff for a negative MDMA (ecstasy) is 500 ng/mL or less. Methadone Qual Urine NEG Negative Cutoff for a negative methadone is 300 ng/mL or less. Opiates Qualitative Urine NEG Negative Cutoff for a negative opiate is 300 ng/mL or less. Benzodiazepine Qual Urine NEG Negative Cutoff for a negative benzodiazepine is 300 ng/mL or less. Tricyc Anti Qual Urine NEG Negative Cutoff for a negative tricyclic antidepressant is 1000 ng/mL or less. Barbiturates Qual Urine NEG Negative Cutoff for a negative barbituate is 300 ng/mL or less. PCP Qual Urine NEG Negative Cutoff for a negative PCP is 25 ng/mL or less. Amphetamine Qual Urine NEG Negative Cutoff for a negative amphetamine is 1000 ng/mL or less. Oxycodone Qual Urine NEG Negative Cutoff for a negative Oxycodone is 100 ng/mL or less. 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 FOR TECHNICAL SALES MANAGER USE OF HIGH RISK MEDICATION High Risk Drug Monitoring? YES Drug being monitored: Suboxone Reason for drug: Opioid Use Disorder What is being monitored?: Dosage, Cravings, Trigger, side effects, and continued abstinence. PLAN: ICD-10-CM 1. Opiate dependence (H) F11.20 Buprenorphine Qual Urine 2. Uncomplicated opioid dependence (H) F11.20 Drug abuse screen (NL, RW) WELLBUTRIN SR 150 MG 12 hr tablet buprenorphine (SUBUTEX) 2 MG SUBL sublingual tablet Hepatitis C Screen Reflex to RNA FUTURE anytime Hepatic panel 3. Major depressive disorder, recurrent episode, moderate (H) F33.1 WELLBUTRIN SR 150 MG 12 hr tablet MEDICATIONS: Orders Placed This Encounter Medications ??? WELLBUTRIN SR 150 MG 12 hr [...] visit in 2 MONTHS Edgar Alfredo MD [facility] documented in this encounter Nursing Notes Sabina Mckay CMA - 04/09/2016 10:15 AM CST No chief complaint on file. Initial BP 133/87 (BP Location: Left arm) Pulse 87 Temp 98.2 ??F (36.8 ??C) (Oral) Resp 20 Wt 183 lb(83 kg) SpO2 94% BMI 29.99 kg/m2 Estimated body mass index is 29.99 kg/(m^2) as calculated from the following: Height as of 13: 5' 5.5 (1.664 m). Weight as of this encounter: 183 lb (83 kg). Medication Reconciliation: unable or not appropriate to perform Sabina Mckay CMA OF SCIENCE documented in this encounter Plan of Treatment Upcoming Encounters Date Type Specialty Care Team Description 11/15/2021 Office Visit Wound Care Luis Camara, [place] [address] [place] [address] (Wo rk) documented as of this encounter Procedures Procedure Name Priority Date/Time Associated Diagnosis Comme nts HEPATIC FUNCTION Routine 04/09/2016 10:50 Uncomplicated opioid Results for this PANEL AM HEAD OF SCIENCE dependence (H) procedure are in the results section. BUPRENORPHINE QUAL Routine 04/09/2016 10:32 Resul ts for this URINE AM HEAD OF SCIENCE procedure are i n the results section. DRUG ABUSE SCREEN Routine 04/09/2016 10:32 Uncomplicated opioi d Results for this (NL, RW) AM HEAD OF SCIENCE dependence (H) procedure are in the results section. documented in this encounter Results Hepatic panel (04/09/2016 10:50 AM HEAD OF SCIENCE) Analysis Performed At [facility] logis Time Signature Bilirubin Direct 0.1 0.0 - 0.2 [facility] mg/dL [facility] Bilirubin Total 0.4 0.2 - 1.3 [facility] mg/dL [facility] Albumin 3.4 3.4 - 5.0 [facility] g/dL [facility] Protein Total 7.2 6.8 - 8.8 [facility] g/dL [facility] Alkaline 76 40 - 150 [facility] Phosphatase U/L [facility] ALT 36 0 - 50 U/L [facility] AST 22 0 - 45 U/L [facility] Specimen Anatomical Collection Method Collection Time Receive d Time (Source) Location / / Volume Laterality Blood specimen 04/09/2016 10:50 7 (specimen) AM HEAD OF SCIENCE 10:51 AM HEAD OF SCIENCE Edgar Alfredo MD LAB - BLOOD ORDERABLES Performing Organization Address City/State/ZIP Code Phon e Number [facility] [address] [place] [address] Drug abuse screen (NL, RW) (04/09/2016 10:32 AM HEAD OF SCIENCE) Component Value Ref Test Analysis Performed Pathologis t Range Method Time At Signature Methamphetamine Negative NEG [facility] Qual Urine Cutoff for a negative methamphetamine is 1000 ng/mL or les s. Cocaine Qual Urine Negative NEG [facility] Cutoff for a negative cocaine is 300 ng/mL or less. Cannabinoids Qual Negative NEG [facility] Urine Cutoff for a negative cannabinoid is 50 ng/mL or less. MDMA Qual Urine Negative NEG [facility] Cutoff for a negative MDMA (ecstasy) is 500 ng/mL or less. Methadone Qual Negative NEG [facility] Urine Cutoff for a negative methadone is 300 ng/mL or less. Opiates Negative NEG [facility] Qualitative Urine Cutoff for a negative opiate is 300 ng/mL or less. Benzodiazepine Negative NEG [facility] Qual Urine Cutoff for a negative benzodiazepine is 300 ng/mL or less. Tricyc Anti Qual Negative NEG [facility] Urine Cutoff for a negative tricyclic antidepressant is 1000 ng /mL or less. Barbiturates Qual Negative NEG [facility] Urine Cutoff for a negative barbituate is 300 ng/mL or less. PCP Qual Urine Negative NEG [facility] Cutoff for a negative PCP is 25 ng/mL or less. Amphetamine Qual Negative NEG [facility] Urine Cutoff for a negative amphetamine is 1000 ng/mL or less. Oxycodone Qual Negative NEG [facility] Urine Cutoff for a negative Oxycodone is 100 ng/mL or less. Specimen Anatomical Collection Method Collection Time Receive d Time (Source) Location / / Volume Laterality Urine specimen 04/09/2016 10:32 7 (specimen) AM HEAD OF SCIENCE 10:33 AM HEAD OF SCIENCE Edgar Alfredo MD LAB - URINE ORDERABLES Performing Organization Address City/[facility]/[place]IP [place] [address] [facility] [address] [facility] Buprenorphine Qual Urine (04/09/2016 10:32 AM HEAD OF SCIENCE) [facility] Method Time Signature Buprenorphine Positive [facility] Qual Urine Specimen Anatomical Collection Method Collection Time Receive d Time (Source) Location / / Volume Laterality Urine specimen 04/09/2016 10:32 7 (specimen) AM HEAD OF SCIENCE 10:33 AM HEAD OF SCIENCE Edgar Alfredo MD LAB - URINE ORDERABLES Performing Organization Address City/State/[facility] [place] [address] [facility] [address] [facility] LAB documented in this encounter Visit Diagnoses Diagnosis Uncomplicated opioid dependence (H) Opioid type dependence, unspecified Major depressive disorder, recurrent epi sode, moderate (H) Major depressive disorder, recurrent epi sode, moderate documented in this encounter Care Teams Die Inspector Relationship Specialty Start Date End Date System, Provider Not In PCP - General Clinic 08/12/14 07/13/16 documented as of this encounter
--- OUTSIDE RECORDS SUMMARY | 2021-11-10 00:46 | XMS_ITS | Encounter Summary ---
:1980 Author Organization [place] Address [address] [place] [address] Care Team Providers Name Role Phone System, Provider Not In Primary Care Provider Unavailable Reason for Visit Reason Onset Date Comments Medication Request 08/09/2015 Subutex Encounter Details Date Type Department Care Team Description 08/09/2015 Telephone [facility] Edgar Alfredo, [facility] ication Request Clinic Ashly VÁSQUEZ (Subutex) [address] [place] [address] [place] [phone] (Wo rk) Social History Tobacco Use Types Packs/Day Years Used Date Current Every Day Smoker Cigarettes 0.1 10 Smokeless Tobacco: Never Used Comments: 5 cigarettes a day Alcohol Use Standard Drinks/Week Comments No 0 (1 standard drink = 0.6 oz pure alcoho l) Sex Assigned at Date Recorded Female 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 Telephone Encounter - Edgar Alfredo MD - 08/10/2015 2:28 PM CDT Bridge ordered please call in to [facility] Telephone Encounter - Mark Roldan - 08/09/2015 2:08 PM CDT Reason for Call: Bridge for Subutex Detailed comments: pt requesting if its okay to bridge Subutex, if she's unable to make her appt tomorrow Phone Number Patient can be reached at: Home number on file [phone] (home) Best Time: Anytime Can we leave a detailed message on this number? YES Call taken on 08/09/2015 at 2:08 PM by Mark Roldan Thank you, Mark Roldan Fundraising Director Integrated Primary Care documented in this encounter Plan of Treatment Upcoming Encounters Date Type Specialty Care Team Description 11/15/2021 Office Visit Wound Care Luis Camara DPM [address] [place] [address] (Wo rk) documented as of this encounter Visit Diagnoses Diagnosis Uncomplicated opioid dependence (H) - Pr imary Opioid type dependence, unspecified documented in this encounter Care Teams Quality Assistant Relationship Specialty Start Date End Date System, Provider Not In PCP - General Clinic 08/12/14 07/13/16 documented as of this encounter
--- OUTSIDE RECORDS SUMMARY | 2021-11-10 00:46 | XMS_ITS | Encounter Summary ---
:1980 Author Organization [place] Address [address] [facility] [place] [address] Care Team Providers Name Role Phone System, Provider Not In Primary Care Provider Unavailable Reason for Visit Reason Onset Date Comments Medication Request 06/03/2016 Subx bridge Encounter Details Date Type Department Care Team Description 06/03/2016 Telephone [facility] Edgar Alfredo, 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 Pt is unable to attend her appt 06/04/16; she scheduled to be seen 06/17/16. Pt would like script sent to [address] Dora Merchant Php Wordpress Developer documented in this encounter Plan of Treatment Upcoming Encounters Date Type Specialty Care Team Description 11/15/2021 Office Visit Wound Care Luis Camara, [place] [address] [place] [id number] (Wo rk) documented as of this encounter Visit Diagnoses Diagnosis Uncomplicated opioid dependence (H) Opioid type dependence, unspecified documented in this encounter Care Teams Pig Sticker Relationship Specialty Start Date End Date System, Provider Not In PCP - General Clinic 08/12/14 07/13/16 documented as of this encounter
--- OUTSIDE RECORDS SUMMARY | 2021-11-10 00:46 | XMS_ITS | Encounter Summary ---
:1980 Author Organization [place] Address [address] [facility] [place] [address] Care Team Providers Name Role Phone System, Provider Not In Primary Care Provider Unavailable Reason for Visit Reason Comments Recheck Medication Encounter Details Date Type Department Care Team Description 08/24/2015 Office Visit [facility] Edgar Alfredo dep ressive disorder, recurrent episode, moderate (H) (Primary Dx); Clinic Ashly Gauthier MD Uncomplicated opioid dependence (H) [address] [place] [phone] Social History Tobacco Use Types Packs/Day Years Used Date Current Every Day Smoker Cigarettes 0.1 10 Smokeless Tobacco: Never Used Comments: 5 cigarettes a day Alcohol Use Standard Drinks/Week Comments No 0 (1 standard drink = 0.6 oz pure alcoho l) Sex Assigned at Date Recorded Female 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 documented as of this encounter Last Filed Vital Signs Vital Sign Reading Time Taken Comments Blood Pressure 130/90 08/24/2015 2:28 PM CDT Pulse 80 08/24/2015 2:28 PM CDT Temperature - - Respiratory Rate - - Oxygen Saturation - - Inhaled Oxygen Concentration - - Weight - - Height - - Body Mass Index - - documented in this encounter Progress Notes Edgar Alfredo MD - 08/26/2015 10:20 PM CDT SUBJECTIVE: Stephani King is a 34 year old female who presents to clinic today for the following health issues: Suboxone followup DISCUSSED MISSING APPOINTMENTS DISCUSSED RECENT WHICH ENDED IN A 19 WEEK STILLBIRTH WANTS SUBUTEX 2 MG 6 TIMES PER DAY WILL TRY TO REDUCE TO 5 PER DAY ADVISED NEEDS TO SHOW UP FOR APPOINTMENTS Status since last visit: Since last visit patient has been: stable. Intensity: ?? There has been: no craving. ?? Suboxone Dose: adequate. Progression of Symptoms: ?? Cues to use and relapse TRIGGERS: MILD ?? Recovery program has been: ignored. Accompanying Signs & Symptoms: ?? Side Effects: none. Sobriety: ?? Status: no use since last visit. ?? Drug Screen: obtained. Precipitating factors: ?? Triggers have been: mild. Alleviating factors: ?? Contact with sponsor has been: no sponsor. ?? Family and support system has been: neutral. Other Therapies Tried : ?? Patient has been going to recovery meetings:not at all. ?? Problem list and histories reviewed & adjusted, as indicated. Additional history: as documented Patient Active Problem List Diagnosis ??? CARDIOVASCULAR SCREENING; LDL GOAL LESS THAN 160 ??? Anxiety ??? Moderate major depression (H) ??? Uncomplicated opioid dependence (H) ??? Supervision of high-risk No past surgical history on file. History Substance Use Topics ??? Smoking status: Current Every Day Smoker -- 0.10 packs/day for 10 years Types: Cigarettes ??? Smokeless tobacco: Never Used Comment: 5 cigarettes a day ??? Alcohol Use: No Family History Problem Relation Age of Onset ??? Depression Mother ??? Psychotic Disorder Mother ??? Thyroid Disease Mother ??? Depression Brother ??? Depression Brother ??? Asthma Son Current Outpatient Prescriptions Medication Sig Dispense Refill ??? WELLBUTRIN SR 150 MG 12 hr tablet Take 1 tablet (150 mg) by mouth 2 times daily 60 tablet 1 ??? venlafaxine (EFFEXOR-XR) 150 MG 24 hr capsule Take 2 capsules (300 mg) by mouth daily 60 capsule1 ??? buprenorphine (SUBUTEX) [address] 1 tablet (2 mg) under the tongue 6 times daily 168 tablet 0 ??? buprenorphine (SUBUTEX) 8 MG SUBL Take 1/2 tab 3 times daily 32 each 0 ??? Ferrous Sulfate (IRON) 325 (65 FE) MG tablet Take 1 tablet by mouth 2 times daily ??? DiphenhydrAMINE HCl (BENADRYL ALLERGY PO) Take by mouth as needed ??? OMEPRAZOLE PO Take by mouth daily ??? levothyroxine (SYNTHROID, LEVOTHROID) 125 MCG tablet Take 1 tablet by mouth daily ??? Bfqruinr-Zqu-Em-FA ( VITAMINS) 0.8 MG TABS Take 1 tablet by mouth daily 30 tablet 6 ??? [DISCONTINUED] VITAMINS PO Take by mouth. No Known Allergies Problem list, Medication list, Allergies, and Medical/Social/Surgical histories reviewed in [facility] andupdated as appropriate. ROS: OBJECTIVE: BP 130/90 mmHg Pulse 80 There is no weight on file to calculate BMI. ROS: Constitutional, HEENT, cardiovascular, pulmonary, gi and gu systems are negative, except as otherwise noted. BP 130/90 mmHg Pulse 80 EXAM: GENERAL APPEARANCE: healthy, alert and no distress EYES: Eyes grossly normal to inspection, PERRL and conjunctivae and sclerae normal SKIN: no suspicious lesions or rashes NEURO: Normal strength and tone, mentation intact and speech normal PSYCH: mentation appears normal and affect normal/bright MENTAL STATUS EXAM: Appearance/Behavior: No apparent distress and Casually groomed Speech: Normal Mood/Affect: normal affect Insight: Adequate Diagnostic Test Results: Results for orders placed or performed in visit on 08/24/15 Drug abuse screen (NL, RW) Result Value [...] negative Oxycodone is 100 ng/mL or less. Buprenorphine Qual Urine Result Value Ref Range Buprenorphine Qual Urine Positive ASSESSMENT: OPIOID DEPENDENCE , UNCOMPLICATED PLAN: ICD-10-CM 1. Major depressive disorder, recurrent episode, moderate (H) F33.1 WELLBUTRIN SR 150 MG 12 hr tablet venlafaxine (EFFEXOR-XR) 150 MG 24 hr capsule 2. Uncomplicated opioid dependence (H) F11.20 WELLBUTRIN SR 150 MG 12 hr tablet buprenorphine (SUBUTEX) 2 MG SUBL 3. Supervision of high-risk of elderly multigravida O09.529 MEDICATIONS: Orders Placed This Encounter Medications ??? WELLBUTRIN SR 150 MG 12 hr tablet Sig: Take 1 tablet (150 mg) by mouth 2 times daily Dispense: 60 tablet Refill: 1 ??? venlafaxine (EFFEXOR-XR) 150 MG 24 hr capsule Sig: Take 2 capsules (300 mg) by mouth daily Dispense: 60 capsule Refill: 1 ??? buprenorphine (SUBUTEX) 2 MG SUBL Sig: Place 1 tablet (2 mg) under the tongue 6 times daily Dispense: 168 tablet Refill: 0 - Continue other medications without change FUTURE APPOINTMENTS: - Follow-up visit in 1 MONTH Edgar Alfredo MD [facility] documented in this encounter Nursing Notes Suyapa Rodriguez CMA - 08/24/2015 2:29 PM CDT Chief Complaint Patient presents with ??? Recheck Medication Initial BP 130/90 mmHg Pulse 80 Estimated body mass index is 30.96 kg/(m^2) as calculated from thefollowing: Height as of 13: 5' 5.5 (1.664 m). Weight as of 07/28/14: 189 lb (85.73 kg). BP completed using cuff size: miguelangel Rodriguez MLT, CMA documented in this encounter Plan of Treatment Upcoming Encounters Date Type Specialty Care Team Description 11/15/2021 Office Visit Wound Care Luis Camara, [place] [address] [place] [address] (Wo rk) documented as of this encounter Procedures Procedure Name Priority Date/Time Associated Diagnosis Comme nts BUPRENORPHINE QUAL Routine 08/24/2015 2:14 Uncomplicated opioi d Results for this URINE PM CDT dependence (H) procedure are in the results section. DRUG ABUSE SCREEN Routine 08/24/2015 2:14 Uncomplicated opioid Results for this (NL, RW) PM CDT dependence (H) procedure are in the results section. documented in this encounter Results Buprenorphine Qual Urine (08/24/2015 2:14 PM CDT) Patholo gist Method Time Signature Buprenorphine Positive [facility] LAB Qual Urine Specimen Anatomical Collection Method Collection Time Receive d Time (Source) Location / / Volume Laterality Urine specimen 08/24/2015 2:14 PM 016 2:19 (specimen) CDT PM CDT Edgar Alfredo MD LAB - URINE ORDERABLES Performing Organization Address City/State/[place] [address] [facility] Building [address] LAB Drug abuse screen (NL, RW) (08/24/2015 2:14 PM CDT) Component Value Ref Test Analysis Performed Pathologis t Range Method Time At Signature Methamphetamine Negative [facility] LAB Qual Urine Cutoff for a negative [...] Location / / Volume Laterality Urine specimen 08/24/2015 2:14 PM 016 2:19 (specimen) CDT PM CDT Edgar Alfredo MD LAB - URINE ORDERABLES Performing Organization Address City/State/[place] [address] [facility] Building [address] [facility] documented in this encounter Visit Diagnoses Diagnosis Major depressive disorder, recurrent epi sode, moderate (H) - Primary Major depressive disorder, recurrent epi sode, moderate Uncomplicated opioid dependence (H) Opioid type dependence, unspecified documented in this encounter Care Teams Child Support Case Officer Relationship Specialty Start Date End Date System, Provider Not In PCP - General Clinic 08/12/14 07/13/16 documented as of this encounter
--- OUTSIDE RECORDS SUMMARY | 2021-11-10 00:46 | XMS_ITS | Encounter Summary ---
:1980 Author Organization [place] Address [address] [place] [address]. 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 Supervision of high-risk Rh Labor And Delive ry [address] [place], [place] [phone] Phone: Fax: Referral ID Status Reason Start Date Expiration Date Visits Requ ested Visits Authorized [id number] 1 1 Encounter Details Date Type Department Care Team Description 07/21/2015 [facility] [address] [facility] [place], [place] [address] [facility] [id number] [address] [place] [address] (Wo rk) Social History Tobacco Use Types Packs/Day Years Used Date Current Every Day Smoker Cigarettes 0.1 10 Smokeless Tobacco: Never Used Comments: 5 cigarettes a day Alcohol Use Standard Drinks/Week Comments No 0 (1 standard drink = 0.6 oz pure alcoho l) Sex Assigned at Date Recorded Female 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 Any further recommendations for follow up will be discussed with your provider at that time. The Blues and Grief After delivery you will experience hormone changes and strong emotions, often referred to as the baby blues. You may find yourself easily upset, tearful or angry. In addition, you will be grieving for your own loss and may feel terribly tired and not want to face friends, family or new babies. Your feelings will be hard to predict during this time. You may have many ups and downs. Be kind andpatient with yourself. No two people grieve the same way. This is true of spouses and partners. Try to have open communication, but don't depend solely on each other for support. Reach out to friends, family, clergy and yourhealth care providers. You don't have to handle this alone. Normal grief after a or loss often lasts for weeks or months. Over time, you will have more good days than bad ones. The first year is usually the hardest as you face significant dates and events for the first time. At first, your sadness or anxiety may keep you from sleeping, eating, being with others or getting out of the house. If, after a week, you aren't able to take care of basic daily tasks, please call your care provider right away. It could be more serious than the blues or grief. Going back to work: Even though you did not bring home a living baby, you and your partner have a right to any family and bereavement leave benefits your employer offers. When you do return to work, beprepared for some adjustment time. Call your health care provider if you have any of these symptoms: You soak a sanitary pad with blood within 1 hour, or you see blood clots larger than a golf ball. Bleeding that lasts more than 6 weeks. You have vaginal discharge that smells bad. A fever above 100.4 F (38 C), with or without chills Severe, pain, cramping or tenderness in your lower belly area. If you have pain that increases or does not go away from an episiotomy or perineal tear Increased pain, swelling, redness or fluid around your stitches. A need to urinate more frequently (use the toilet more often), more urgently (use the toilet very quickly), or it [place] when you urinate. Redness, swelling or pain around a vein in your leg. Problems with coping with sadness, anxiety, or depression. Your breasts are engorged (hard and swollen), red and very tender and you have a fever. If you have nausea and vomiting. If you have chest pain and cough or are gasping for air. You have questions or concerns after you return home. Keep your hands clean: Always wash your hands before touching your perineal area and stitches. This helps reduce your risk of infection. If your hands aren't dirty, you may use an alcohol hand-rub to clean your hands. Keep your nails clean and short. documented in this encounter Medications at Time of Discharge Medication Sig Dispensed Refills Start Date End Date buprenorphine (SUBUTEX) 8 Take 1/ tab 3 32 each 0 201509/28/2015 MG SUBLIndications: times daily Uncomplicated opioid dependence (H) buprenorphine HCl-naloxone Take 1.5 strips 33 Film 0 02/201508/10/2015 HCl (SUBOXONE) 8-2 MG daily filmIndications: Uncomplicated opioid dependence (H) Cholecalciferol (VITAMIN Take 2,000 Units 100 tablet 3 04/1008/24/2015 D) 2000 UNITS by mouth daily. tabletIndications: Vitamin B12 deficiency (non anaemic) DiphenhydrAMINE HCl Take by mouth as 0 07/04/2018 (BENADRYL ALLERGY PO) needed Ferrous Sulfate (IRON) 325 Take 1 tablet by 0 08/29/2016 (65 FE) MG tablet mouth 2 times daily levothyroxine (SYNTHROID, Take 1 tablet by 0 01/31/2018 LEVOTHROID) 125 MCG tablet mouth daily OMEPRAZOLE PO Take by mouth 0 11/30/19 17 daily Take 1 tablet by 30 tablet 6 12/10/2012 08/30/19 17 Zaalclpq-Fpi-Fx-FA mouth daily ( VITAMINS) 0.8 MG TABSIndications: Opiate dependence (H) venlafaxine (EFFEXOR-XR) Take 2 capsules 60 capsule 1 201508/24/2015 150 MG 24 hr (300 mg) by mouth capsuleIndications: Major daily depressive disorder, recurrent episode, moderate (H) WELLBUTRIN SR 150 MG 12 hr Take 1 tablet (150 60 tablet 1 0 05/17/2015 08/24/2015 tabletIndications: Major mg) by mouth 2 depressive disorder, times daily recurrent episode, moderate (H), Uncomplicated opioid dependence (H) documented as of this encounter Progress Notes Lisa Trevino RN - 07/21/2015 11:14 PM CDT Fetus and placenta brought to lab for examination. Ray Trujillo MD - 07/21/2015 8:11 PM CDT of 18--19 week stillborn fetus, Placenta delivered EBL 100 cc Ray Trujillo MD - 07/21/2015 7:02 PM CDT 34 yo female came into R by ambulance. Gestation unknown, US done at bedside confirms 19w 3d,randi breech presentation. She has a history of a csection with baby number 5, then a ruptured uterus with her last baby after attempted . Exam: Membranes now spontaneously ruptured. feet and buttocks are palpable in vagina. No palpable cervix. Plan expect imminent delivery. Patient typed and crossed. documented in this encounter Miscellaneous Notes Plan of Care - Lisa Trevino RN - 07/21/2015 11:00 PM CDT Pt given discharge instructions for follow-up and when to call her Dr. Verbalized understanding. Allquestions were answered by music writer. Given footprints and photo card. Pt's family escorted pt out via w/c. L&D Delivery Note - Crista Pereyra - 07/21/2015 8:29 PM CDT Sex of baby was female. L&D Delivery Note - Ray Trujillo MD - 07/21/2015 8:08 PM CDT Stephani Mccormick is a 34-year-old female, 7 who came into the emergency room via ambulance with pelvic pressure and what turned out to be an unknown . She was sent up to Labor and Delivery, ultrasound demonstrated a 19 week 3-day fetus in the breech presentation. Her pelvic examination showed an intact bag in the vagina with palpable feet. Soon after her admission into Labor and Delivery membranes ruptured spontaneously and she was allowed to labor. The situation had been discussed with the patient and her . She had a previous history of a C Section, followed 2 years later by an attempted resulting in uterine rupture. She agreed to proceed with the vaginal delivery, and she was typed and crossed. After half an hour the baby delivered stillborn. This was about an 18-week size baby. Cord was clamped and cut. The patient was placed on a Pitocin drip and she soon after delivered the placenta intact. Her bleeding is under good control, with a total blood loss of 150 cc. I discussed the issues of autopsy, toxicology screen and followup with her. We will keep her on Labor and Delivery for a few hoursand if she is stable she can go home. I asked her to return to my clinic in 2 weeks for a followup visit. She declined any pain medications. Her blood type is Rh positive. RAY TRUJILLO MD MT: [id number] Name: STEPHANI MCCORMICK Account: [id number] : 1980 Delivery Date: 07/21/2015 Document: [id number] Provider Notification - Lisa Trevino RN - 07/21/2015 6:40 PM CDT 07/21/15 1840 Comments Comments Pt moved to L&D Rm 9, Dr Trujillo at bedside Provider Notification - Lisa Trevino RN - 07/21/2015 6:40 PM CDT 07/21/15 1851 Provider Notification Provider Name/Title RAJANI Method of Notification At Bedside DR Trujillo at bedside, ok for pt to push with ctx. Pt began bearing down with ctx. Provider Notification - Lisa Trevino RN - 07/21/2015 6:30 PM CDT 07/21/15 1830 Provider Notification Provider Name/Title RAJANI Method of Notification At Bedside Pt complete, breech. Will move to labor bed. Provider Notification - Lisa Trevino RN - 07/21/2015 6:15 PM CDT 07/21/15 1805 Provider Notification Provider Name/Title Dr Trujillo Method of Notification Phone Request Evaluate in Person Notification Reason Status Update;Bleeding Notified Dr Trujillo that RN saw membranes upon visual vaginal exam, no SVE done. U/S will be up for bedside u/s for dates. Will have labs drawn. Dr Trujillo will be on his way in. Provider Notification - Lisa Trevino RN - 07/21/2015 6:13 PM CDT 07/21/15 4598 Provider Notification Provider Name/Title Dr Trujillo Method of Notification Phone Request Evaluate - Remote Notification Reason Patient Arrived;Labor Status;Uterine Activity;Status Update Dr Trujillo notified of with recently discovered of unknown gestation. She came via ambulance. She is here with vaginal bleeding and states she felt a head with her hand. FHR 150's, no ctx noted on toco but pt states she feels them every 5 minutes. Will order u/s for dates and perform speculum and SVE if appropriate. Plan of Care - Lisa Trevino RN - 07/21/2015 10:50 AM CDT Pt VSS, fundus firm, bleeding WNL. Has been 4 hours since delivery and pt would like to go home. Hasbeen up, voided, urine sent now for tox screen. Paperwork completed by pt. Grieveing appropriately, had not wanted to see baby until just prior to discharge. Viewed baby with SO and mother present. Support given and condolences offered, all questions answered. documented in this encounter Plan of Treatment Upcoming Encounters Date Type Specialty Care Team Description 11/15/2021 Office Visit Wound Care Luis Camara DPM [address] [place] [phone] (Wo rk) Pending Results Name Type Priority Associated Diagnoses Date/Ti me Placenta Path Order and Lab Routine 04/2015 7:46 PM CDT Indications (PLACENTA) documented as of this encounter Procedures Procedure Name Priority Date/Time Associated Comments Diagnosis DRUG ABUSE SCRN 7 UR Routine 07/21/2015 10:45 Res ults for this (/) PM CDT procedur e are in (RH, SH, UR) the results section. COCAINE QUANTITATIVE Routine 07/21/2015 10:45 Res ults for this URINE PM CDT procedure are i n the results section. PLACENTA PATH ORDER Routine 07/21/2015 7:46 PM AND INDICATIONS CDT SURGICAL PATHOLOGY Routine 07/21/2015 7:36 PM Res ults for this EXAM CDT procedure are i n the results section. US OB LIMITED >14 STAT 07/21/2015 6:38 PM Resu lts for this WEEKS WO CDT procedure are in MEASUREMENT the results section. RUBELLA ANTIBODY IGG STAT 07/21/2015 6:32 PM R esults for this CDT procedure are i n the results section. HIV ANTIGEN ANTIBODY STAT 07/21/2015 6:32 PM R esults for this COMBO CDT procedure are i n the results section. BLOOD COMPONENT Routine 07/21/2015 6:32 PM Result s for this CDT procedure are i n the results section. HEMOGLOBIN STAT 07/21/2015 6:32 PM Results f or this CDT procedure are i n the results section. ANTI TREPONEMA STAT 07/21/2015 6:32 PM Results for this CDT procedure are i n the results section. ABO/RH TYPE AND STAT 07/21/2015 6:32 PM Result s for this SCREEN CDT procedure are i n the results section. documented in this encounter Results Cocaine quantitative urine (07/21/2015 10:45 PM CDT) P athologist Signature Cocaine Quant 173 [facility] Comment: Unit: ng/ml Benzoylecgonine Qntu 60,354 [facility] Comment: Unit: ng/ml (Note) Analysis for cocaine and its primary met abolite, benzoylecgonine, is performed by gas chr omatography with mass spectrometry (GC/MS). Results are r eported to the limit of quantitation of the assay. Analysis performed by [employer] [place] [address] Specimen Anatomical Collection Method Collection Time Receive d Time (Source) Location / / Volume Laterality 07/21/2015 10:45 07/22/2015 PM CDT 12:20 AM CDT Ray Trujillo MD LAB - URINE ORDERABLES Performing Organization Address City/State/ZIP Code Phon e Number M [facility] [address] [place], [place] [address] [facility] [phone] (ABNORMAL) Drug abuse scrn 7 UR (/) (RH, SH, UR) (07/21/2015 10:45 PM CDT) Component Value Ref Test Analysis Performed At [facility] [place] Range Method Time Signature Amphetamine Qual Negative NEG [place] Urine Cutoff for a negative amphetamine is 500 ng/mL or less. [facility] Cannabinoids Negative NEG [facility] Qual Urine Cutoff for a negative cannabinoid is 50 ng/mL or less. [facility] Cocaine Qual Positive, sent NEG [place] Urine to APROOFED for [facility] (A) Opiates Negative NEG [place] Qualitative Cutoff for a negative opiate is 300 ng/mL or less. [facility] Pcp Qual Urine Negative NEG [place] Cutoff for a negative PCP is 25 ng/mL or less. [facility] Specimen Anatomical Collection Method Collection Time Receive d Time (Source) Location / / Volume Laterality Urine specimen URINE SPECIMEN 07/21/2015 10:45 016 (specimen) OBTAINED BY CLEAN PM CDT 11:48 PM C DT CATCH PROCEDURE / Unknown Ray Trujillo MD LAB - URINE ORDERABLES Performing Organization Address City/State/ZIP Code Phon e Number M [place] [address] [address] [place], [place] [address] [facility] [phone] Surgical Path Exam (07/21/2015 7:36 PM CDT) Component Value Ref Test Analysis Performed At [facility] SurroundsMe Method Time Signature Copath Report Patient Name: STEPHANI KING MR#: [id number] Specimen #: [id number] Collected: 07/21/2015 Received: 07/24/2015 Reported: 07/31/2015 11:48 Ordering Phy(s): RAY TRUJILLO SPECIMEN(S): A: Fetus, 19 3/7 weeks B: Placenta FINAL DIAGNOSIS: A: Fetus. - 336 g intrauterine demise. - No external dysmorphic features or anomalies identified. - External exam only. B: Placenta. - 162 g espinoza placenta without evidence of infarction. - membranes with meconium staining and no evidence of acute chorioamnionitis. - Three-vessel umbilical cord without evidence of acute funi sitis. Electronically signed out by: Edgardo Thomas M.D. CLINICAL HISTORY: demise at 19.3 weeks. ??Maternal screen positive for c ocaine. GROSS: A: ??Received in formalin, labeled with the patient's name, identifying information and fetus. ??Gross external only examination i s requested. Cytogenetic studies are not clinically requested. ??Because of the clinical history, the certified medical biller's office was elaine jenkins 07/31/15 at 11:34AM and declined jurisdiction. ??It consists of a 336 g intact fetus. The skin is pink, hyperemic with some maceration. ??The hea d and face are well formed. The eyes symmetric and are closed. The mout h is patent. There is no evidence of cleft lip or palatal defects. ??The neck is unremarkable without nuchal thickening. ??The chest and abdo men are without defects. ??A 15 cm long three vessel cord is roto mixer operator d at the abdominal wall. ??The cord appears unremarkable without a tr ue knot or other identifiable abnormality. ??No posterior cranial or sp inal defects are identified. ??The fontanelles are soft and non-bulging. ??The extremities are well formed, symmetric with five digits on e ach hand and foot. ??No abnormal creases, webbing, or contractures are id entified. The external genitalia are grossly consistent with a female. ??The anus is patent. ??External exam only. GROSS MEASUREMENTS: Round-rump length: 17 cm Rayle-heel length: 23 cm Head circumference: 16.3 cm Intercanthal distance: 0.9 cm Inner canthal distance: 3.6 cm Palm finger hand length: 2.4 cm foot length: 2.9 cm Chest circumference: 15.4 cm Abdominal circumference: 15.7 cm B: ??The specimen is received in formalin labeled with the p atient's name, identifying information and placenta . ??It consists of a 162 g, 11.5 x 11 x 1.5 cm small espinoza placenta. ??The 17 cm jerilyn g three vessel cord inserts 3 cm from margin. ??The membranes are pi nk-[place] and patent and inserts marginally. ??The surface is blue-g ray. ??The maternal surface is slightly shaggy. ??Not all cotyledons ar e accounted for. ?? The cut surfaces are red-brown and spongy with pale red and friable upon sectioning. ??No lesions are identified. No ret roplacental hematoma are identified. ??Assistant Manager Airside Operations sections are submi tted in 3 blocks. MICROSCOPIC: A: No microscopic performed. ??Per clinical request, gross e xternal exam only. B: There are patchy areas of perimembraneous degenerative ch guillermina. ??There is meconium staining. ??The placental villi appear edematous . The placenta shows no evidence of infarction, villitis, or obvio us vasculopathy. CPT Codes: A: 19102-VV, SOH B: 40380-JE7 TESTING LAB LOCATION: [address] ??[address] COLLECTION SITE: Client: [facility] Location: RHOB (R) Specimen Anatomical Collection Method Collection Time Receive d Time (Source) Location / / Volume Laterality 07/21/2015 7:36 PM 6 3:39 CDT PM CDT Ray Trujillo MD [facility] Organization Address City/State/ZIP Code Phon e Number [place] US OB Limited One Or More Fetuses (07/21/2015 6:38 PM CDT) Anatomical Region Laterality Modality Abdomen/Pelvis Ultrasound Specimen (Source) Anatomical Location Collection Method / Collectio n Time Received Time / Laterality Volume Impressions 07/21/2015 6:48 PM CDT IMPRESSION: Oligohydramnios with dilated cervix at 8 cm. ??Fetus is senior care through the lower uterine segmen t and into the dilated cervical canal. ??Fetus is in breech pre sentation. ??Cardiac activity measures 188 beats per minute. VERNON BARRY MD Narrative 07/21/2015 6:48 PM CDT US OBSTETRIC LIMITED ONE OR MORE FETUSES 07/21/2015 6:38 PM HISTORY: No PNC, bleeding. FINDINGS: Limited OB ultrasound demonstr ates a fetus in breech presentation with a longitudinal lie. ?? cardiac activity measures 188 beats per minute. ??Placenta is ante rior. ??No obvious previa. Cervix is dilated measuring 8 cm. ??The lower aspect of the body, buttock, legs and feet are in the lower uterine segment. ??Very little amniotic fluid remains. ??Amniotic fluid index is 1.4 cm. ??Measured parameters including BPD, head circumfer ence and abdominal circumference is 19 weeks 2 days with an estimated date of delivery 12/13/2015. ??Femur length is unable to be obtained. Procedure Note Vernon Barry MD - 07/21/2015Form atting of this note might be different from the original. US OBSTETRIC LIMITED ONE OR MORE FETUSES 07/21/2015 6:38 PM HISTORY: No PNC, bleeding. FINDINGS: Limited OB ultrasound demonstr ates a fetus in breech presentation with a longitudinal lie. Fe jethro cardiac activity measures 188 beats per minute. Placenta is anteri or. No obvious previa. Cervix is dilated measuring 8 cm. The lo wer aspect of the body, buttock, legs and feet are in the lower uterine segment. Very little amniotic fluid remains. Amniotic fluid i ndex is 1.4 cm. Measured parameters including BPD, head circumfer ence and abdominal circumference is 19 weeks 2 days with an estimated date of delivery 12/13/2015. Femur length is unable to be obtained. IMPRESSION: Oligohydramnios with dilated cervix at 8 cm. Fetus is senior care through the lower uterine segmen t and into the dilated cervical canal. Fetus is in breech prese ntation. Cardiac activity measures 188 beats per minute. VERNON BARRY MD Ray Trujillo MD [facility] US ORDERABLES Blood component (07/21/2015 6:32 PM CDT) [facility] Method Time Signature Unit Number [id number] [facility] Blood Red Blood [place] Component Cells [facility] Reduced Division 00 [facility] Status of No longer [place] Unit available [facility] 07/25/2015 HOSPITAL 0300 Blood Product [id number] [facility] Unit Status RET [facility] Specimen Anatomical Collection Method Collection Time Receive d Time (Source) Location / / Volume Laterality 07/21/2015 6:32 PM 6 6:42 CDT PM CDT Ray Trujillo MD LABORATORY Performing Organization Address City/State/ZIP Code Phon e Number M [facility] [address] [place], [place] [address] [facility] [address] [place], [place] [address] [facility] [phone] HIV Antigen Antibody Combo (07/21/2015 6:32 PM CDT) Patholo gist Method Time Signature HIV Antigen Nonreactive NR [facility] HIV-1 p24 Ag & HIV-1/HIV-2 Ab Not Detected [place] [facility] [place] Specimen Anatomical Collection Method Collection Time Receive d Time (Source) Location / / Volume Laterality Blood specimen 07/21/2015 6:32 PM 016 6:42 (specimen) CDT PM CDT Ray Trujillo MD LAB - BLOOD ORDERABLES Performing Organization Address City/[facility]/ZIP Code Phon e Number [facility] [address] [place] [address] [facility] Anti Treponema (07/21/2015 6:32 PM CDT) Analysis Performed At Patho logist Time Signature Treponema Negative NEG [facility] [place] Specimen Anatomical Collection Method Collection Time Receive d Time (Source) Location / / Volume Laterality Blood specimen 07/21/2015 6:32 PM 016 6:42 (specimen) CDT PM CDT Ray Trujillo MD LAB - BLOOD ORDERABLES Performing Organization Address City/[facility]/ZIP Code Phon e Number [facility] [address] [place] [address] [place] Rubella Antibody IgG Quantitative (07/21/2015 6:32 PM CDT) Analysis Performed At Patho logist Time Signature Rubella Antibody 7 IU/mL [facility] IgG Quantitative [facility] Comment: Negative Reference Range: ?? Unvaccinated Negative 0-7 IU/mL Vaccinated or previous exposure Positiv e 10 IU/ml or greater Specimen Anatomical Collection Method Collection Time Receive d Time (Source) Location / / Volume Laterality Blood specimen 07/21/2015 6:32 PM 016 6:42 (specimen) CDT PM CDT Ray Trujillo MD LAB - BLOOD ORDERABLES Performing Organization Address City/State/ZIP Code Phon e Number [facility] [address] [place] [address] [facility] (ABNORMAL) Hemoglobin (07/21/2015 6:32 PM CDT) P athologist Signature Hemoglobin 10.7 (L) 11.7 - 15.7 [place] g/dL [facility] Specimen Anatomical Collection Method Collection Time Receive d Time (Source) Location / / Volume Laterality Blood specimen 07/21/2015 6:32 PM 016 6:42 (specimen) CDT PM CDT Ray Trujillo MD LAB - BLOOD ORDERABLES Performing Organization Address City/State/ZIP [facility] Phon e Number M [facility] [address] [place], [place] [address] [place] [address] [address] [place], [place] [address], [facility] [phone] ABO/Rh type and screen (07/21/2015 6:32 PM CDT) Patholo gist Method Time Signature Units Ordered 1 [facility] ABO B [facility] RH(D) Pos [facility] Antibody Neg [place] Screen [facility] Test Valid [facility] [facility] Specimen 07/24/2015 [facility] Specimen Anatomical Collection Method Collection Time Receive d Time (Source) Location / / Volume Laterality Blood specimen 07/21/2015 6:32 PM 016 6:42 (specimen) CDT PM CDT Ray Trujillo MD LAB - BLOOD BANK TEST ORDER Performing Organization Address City/[facility]/ZIP [facility] Phon e Number M [facility] [address] [place], [place] [address] [place] [address] [address] [place], [place] [address] [facility] [phone] documented in this encounter Visit Diagnoses Diagnosis Supervision of high-risk Unspecified high-risk documented in this encounter Administered Medications Inactive Administered Medications - up to 3 most recent administrations Medication Order MAR Action Action Date Dose Rate Site ibuprofen (ADVIL,MOTRIN) tablet Given 07/21/2015 8:07 PM CDT 800 mg 800 mg 800 mg, Oral, ONCE PRN, moderate pain (4-6), mild-moderate pain, Starting on Fri07/21/15 at 1900, For 1 dose, Available for administration after delivery. May give with acetaminophen. oxytocin (PITOCIN) 20 units in 0.9% NaCl New Bag 07/21/2015 7: 36 PM CDT 999 mLs 1000 mL 0-1,000 mL, Intravenous, CONTINUOUS PRN, provider discretion to treat or prevent uterine atony, Starting on Fri07/21/15 at 1900, Notify provider IF uterine atony and clarify with provider medication preference. IV to run per provider discretion to treat or prevent uterine atony. IV to continue until patient stable. Discontinue or saline lock per nurse discretion. oxytocin (PITOCIN) 20 Given by Other 07/21/2015 6:40 PM CDT 800 mL/hr 800 mL/hr units in 0.9% NaCl 1000 mL 500-1,000 mL/hr, Intravenous, ONCE PRN, for hemorrhage, Starting on Fri07/21/15 at 2009, For 1 dose, Deliver a total of 1000mLfluid bolus documented in this encounter Active and Recently Administered Medications Times are shown in CDT. PRN Medication Order 07/19/2015 07/20/2015 07/21/2015 ibuprofen (ADVIL,MOTRIN) tablet 800 mg (COMPLETED) 2006 (Given - Provider: Lisa Trevino RN) 800 mg, Oral, ONCE PRN, moderate pain, m ild-moderate pain, Starting Fri07/21/15 at 1900, For 1 dose, Available for administration after delivery. May give with acetaminophen. oxytocin (PITOCIN) 20 units in 0.9% NaCl 1000 mL (CANCELED) 193 (New Bag - Provider: Ann Marie Aviles RN) 0-1,000 mL, Intravenous, CONTINUOUS PRN, provider discretion to treat or prevent uterine atony, Starting Fri07/21/15 at 1900, Notify provider IF uterine atony and clarify with provider medication prefere nce. IV to run per provider discretion t o treat or prevent uterine atony. IV to continue until patient stable. Discontinue or saline lock per nurse discretion. oxytocin (PITOCIN) 20 units in 0.9% NaCl 1000 mL (COMPLETED) 1840 (Given by Other - Provider: Lisa R Bicknese, RN) 500-1,000 mL/hr, Intravenous, at 500-1,0 00 mL/hr, ONCE PRN, for hemorrhage, Starting Fri07/21/15 at 2008, For 1 dose, Deliver a total of 1000mLfluid bolus documented in this encounter Care Teams Cash Specialist Relationship Specialty Start Date End Date System, Provider Not In PCP - General Clinic 08/12/14 07/13/16 documented as of this encounter
--- OUTSIDE RECORDS SUMMARY | 2021-11-10 00:46 | XMS_ITS | Encounter Summary ---
:1980 Author Organization [place] Address [address] [place] [address] Care Team Providers Name Role Phone System, Provider Not In Primary Care Provider Unavailable Reason for Visit Reason Onset Date Comments Medication Request 03/12/2016 Bridge for Subutex Encounter Details Date Type Department Care Team Description 03/12/2016 Telephone [facility] Edgar Alfredo, [facility] ication Request Clinic Ashly VÁSQUEZ (Bridge for Subutex ) [address] [place] [address] [place] [phone] (Wo rk) Social History Tobacco Use Types Packs/Day Years Used Date Current Every Day Smoker Cigarettes 0.1 10 Smokeless Tobacco: Never Used Comments: 5 cigarettes a day Alcohol Use Standard Drinks/Week Comments No 0 (1 standard drink = 0.6 oz pure alcoho l) Sex Assigned at Date Recorded Female 01/14/2020 10:57 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 YES Call taken on 03/12/2016 at 10:13 AM by Mark Roldan Thank you, Mark Roldan [employer] [facility] ENT FINANCIAL SERVICES MANAGER documented in this encounter Plan of Treatment Upcoming Encounters Date Type Specialty Care Team Description 11/15/2021 Office Visit Wound Care Luis Camara, [place] [address] [place] [phone] (Wo rk) documented as of this encounter Visit Diagnoses Diagnosis Uncomplicated opioid dependence (H) - Pr imary Opioid type dependence, unspecified documented in this encounter Care Teams Group Sales Manager Relationship Specialty Start Date End Date System, Provider Not In PCP - General Clinic 08/12/14 07/13/16 documented as of this encounter
--- OUTSIDE RECORDS SUMMARY | 2021-11-10 00:46 | XMS_ITS | Encounter Summary ---
:1980 Author Organization [place] Address [address] [facility] [place] [address] Care Team Providers Name Role Phone System, Provider Not In Primary Care Provider Unavailable Reason for Visit Reason Onset Date Comments Prior Auth - Medication 06/13/2016 buprenorphine (S UBUTEX) 2 MG Encounter Details Date Type Department Care Team Description 06/13/2016 Telephone [facility] Edgar Alfredo Pri or Auth - Medication Clinic Ashly VÁSQUEZ (buprenorphine [address] [place] (SUBUTEX) 2 MG) [address] [place] [phone] (Wo rk) Social History Tobacco Use Types Packs/Day Years Used Date Current Every Day Smoker Cigarettes 0.1 10 Smokeless Tobacco: Never Used Comments: 5 cigarettes a day Alcohol Use Standard Drinks/Week Comments No 0 (1 standard drink = 0.6 oz pure alcoho l) Sex Assigned at Date Recorded Female 01/14/2020 10:57 AM SENIOR 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 Lupe Lantigua MA Telephone Encounter - Lupe Lantigua CMA - 06/14/2016 9:48 AM CDT changed Subutex Rx to Suboxone instead. Staff called [facility] at [phone] and was informed an Prior Authorization is needed for buprenorphine HCl-naloxone HCl (SUBOXONE) 2-0.5 MG per film 25 Film. Staff called [employer] to Submit PA via phone for buprenorphine HCl- naloxone HCl (SUBOXONE) 2-0.5 MG per film 25 Film. Staff is waiting for a response. [place] Medicaid ID# [id number] NDC# [id number] Pharm NPI# [id number] Pharm Pharm Insurance Phone# Telephone Encounter - Mark Roldan - 06/13/2016 3:41 PM CDT Patient called she would like a call back on the Status of the PA. Pt contact info: [phone] Ok to leave derailed message. Mark Roldan Account Executive Telephone Encounter - Dora Merchant - 06/13/2016 2:56 PM CDT Fax received from [facility] requesting that PA be re-submitted with pharmacy name, NPI, phone number and fax number. Another form received from pharmacy requesting that PA be submitted via covermymeds. 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 Inspector [employer] placed form in provider's folder. Mark Roldan Account Executive Telephone Encounter - Dora Merchant - 06/13/2016 10:32 AM CDT Fax received from pharmacy 06/13/16 requesting an urgent PA. Pt has been out of medication for a while. Insurance phone #: [phone] Dora Merchant Account Executive Telephone Encounter - Dora Merchant - 06/13/2016 8:23 AM CDT Incoming call from pt requesting a PA for buprenorphine (SUBUTEX) 2 MG. TC's have not received a PA request from the pharmacy. Prior Authorization needed on: 06/13/16 Medication: buprenorphine (SUBUTEX) Dose: 2 MG Insurance Name: [place] Medicaid Insurance Phone: not available Insurance Dora Merchant June 13, 2016 at 8:24 AM documented in this encounter Plan of Treatment Upcoming Encounters Date Type Specialty Care Team Description 11/15/2021 Office Visit Wound Care Luis Camara DPM [address] [place] [address] (Wo rk) documented as of this encounter Visit Diagnoses Not on filedocumented in this encounter Care Teams Cath Lab Relationship Specialty Start Date End Date System, Provider Not In PCP - General Clinic 08/12/14 07/13/16 documented as of this encounter
--- OUTSIDE RECORDS SUMMARY | 2021-11-10 00:46 | XMS_ITS | Encounter Summary ---
:1980 Author Organization [place] Address [address] [facility] [place] [address] Care Team Providers Name Role Phone System, Provider Not In Primary Care Provider Unavailable Reason for Visit Reason Onset Date Comments Erroneous encounter-disregard 08/18/2015 Encounter Details Date Type Department Care Team Description 08/18/2015 Office Visit [facility] Edgar Alfredo NO SHOW ( Primary Dx); Clinic Ashly Gauthier MD ERRONEOUS ENCOUNTER--DISREGARD [address] [place] [address] [place] [phone] Social History Tobacco Use Types Packs/Day Years Used Date Current Every Day Smoker Cigarettes 0.1 10 Smokeless Tobacco: Never Used Comments: 5 cigarettes a day Alcohol Use Standard Drinks/Week Comments No 0 (1 standard drink = 0.6 oz pure alcoho l) Sex Assigned at Date Recorded Female 01/14/2020 10:57 AM SUPERINTENDENT 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 Please disregard. documented in this encounter Plan of Treatment Upcoming Encounters Date Type Specialty Care Team Description 11/15/2021 Office Visit Wound Care Luis Camara, [place] [address] [place] [address] (Wo rk) documented as of this encounter Visit Diagnoses Diagnosis NO SHOW - Primary ERRONEOUS ENCOUNTER--DISREGARD documented in this encounter Care Teams Bartender Manager Relationship Specialty Start Date End Date System, Provider Not In PCP - General Clinic 08/12/14 07/13/16 documented as of this encounter
--- OUTSIDE RECORDS SUMMARY | 2021-11-10 00:46 | XMS_ITS | Encounter Summary ---
:1980 Author Organization [place] Address [address] [facility] [place] [address] Care Team Providers Name Role Phone System, Provider Not In Primary Care Provider Unavailable Reason for Visit Reason Onset Date Comments Recheck Medication Erroneous encounter-disregard 09/29/2015 Encounter Details Date Type Department Care Team Description 09/25/2015 Office Visit [facility] Edgar Alfredo ERRONEOUS Clinic Ashly Gauthier MD ENCOUNTER--DISREGARD [address] [place] (Primary Dx) [address] [place] [phone] Social History Tobacco Use Types Packs/Day Years Used Date Current Every Day Smoker Cigarettes 0.1 10 Smokeless Tobacco: Never Used Comments: 5 cigarettes a day Alcohol Use Standard Drinks/Week Comments No 0 (1 standard drink = 0.6 oz pure alcoho l) Sex Assigned at Date Recorded Female 01/14/2020 10:57 AM COGNOS DEVELOPER documented as of this encounter Progress Notes Edgar Alfredo MD - 09/29/2015 10:42 AM CDT This encounter was opened in error. Please disregard. documented in this encounter Plan of Treatment Upcoming Encounters Date Type Specialty Care Team Description 11/15/2021 Office Visit Wound Care Luis Camara, [place] [address] [place] [address] (Wo rk) documented as of this encounter Visit Diagnoses Diagnosis ERRONEOUS ENCOUNTER--DISREGARD - Primary documented in this encounter Care Teams Deputy County Counsel Relationship Specialty Start Date End Date System, Provider Not In PCP - General Clinic 08/12/14 07/13/16 documented as of this encounter
--- OUTSIDE RECORDS SUMMARY | 2021-11-10 00:46 | XMS_ITS | Encounter Summary ---
:1980 Author Organization [place] Address [address] [facility] [place] [address] Care Team Providers Name Role Phone System, Provider Not In Primary Care Provider Unavailable Reason for Visit Reason Comments Recheck Medication Encounter Details Date Type Department Care Team Description 09/28/2015 Office Visit [facility] Edgar Alfredoplic ated opioid dependence (H) (Primary Dx); Clinic Ashly Gauthier MD Major depressive disorder, recurrent epi sode, moderate (H) [address] [place] [address] [place] [phone] Social History Tobacco Use Types Packs/Day Years Used Date Current Every Day Smoker Cigarettes 0.1 10 Smokeless Tobacco: Never Used Comments: 5 cigarettes a day Alcohol Use Standard Drinks/Week Comments No 0 (1 standard drink = 0.6 oz pure alcoho l) Sex Assigned at Date Recorded Female 01/14/2020 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 documented as of this encounter Last Filed Vital Signs Vital Sign Reading Time Taken Comments Blood Pressure 128/70 09/28/2015 3:28 PM CDT Pulse 77 09/28/2015 3:28 PM CDT Temperature - - Respiratory Rate - - Oxygen Saturation - - Inhaled Oxygen Concentration - - Weight - - Height - - Body Mass Index - - documented in this encounter Progress Notes Edgar Alfredo MD - 09/30/2015 11:01 AM CDT SUBJECTIVE: Stephani King is a 35 year old female who presents to clinic today for the following health issues: Suboxone followup HERE WITH ALSO IN RECOVERY NO CHANGE AT TIMES DOESN'T KNOW IF SHE'S RARELY GETS PERIOD MEDICATIONS, SITUATION ALL THE SAME NO RECOVERY PROGRAM OTHER THAN [place]OR[place] SUPPORT Status since last visit: Since last visit patient has been: stable. Intensity: ?? There has been: no craving. ?? Suboxone Dose: adequate. Progression of Symptoms: ?? Cues to use and relapse TRIGGERS: MINIMAL ?? Recovery program has been: weak. Accompanying Signs & Symptoms: ?? Side Effects: none. Sobriety: ?? Status: no use since last visit. ?? Drug Screen: obtained. Precipitating factors: ?? Triggers have been: mild. Alleviating factors: ?? Contact with sponsor has been: no sponsor. ?? Family and support system has been: helpful. Other Therapies Tried : ?? Patient has been going to recovery meetings:NONE ?? Problem list and histories reviewed & [...] Refill ??? buprenorphine (SUBUTEX) [address] 1 tablet (2 mg) under the tongue 6 times daily 168 tablet 0 ??? WELLBUTRIN SR 150 MG 12 [...] Take 1 tablet by mouth daily ??? Xszveqnp-Ong-Ez-FA ( VITAMINS) 0.8 MG TABS Take 1 tablet by mouth daily 30 tablet 6 ??? [DISCONTINUED] VITAMINS PO Take by mouth. No Known Allergies Problem list, Medication list, Allergies, and Medical/Social/Surgical histories reviewed in [facility] andupdated as appropriate. ROS: OBJECTIVE: BP 128/70 mmHg Pulse 77 There is no weight on file to calculate BMI. ROS: Constitutional, HEENT, cardiovascular, pulmonary, gi and gu systems are negative, except as otherwise noted. BP 128/70 mmHg Pulse 77 EXAM: GENERAL APPEARANCE: healthy, alert and no [...] orders placed or performed in visit on 09/28/15 Drug abuse screen (NL, RW) Result Value [...] Range Buprenorphine Qual Urine Positive ASSESSMENT: OPIOID DEPENDENCE, UNCOMPLICATED PLAN: ICD-10-CM 1. Uncomplicated opioid dependence (H) F11.20 buprenorphine (SUBUTEX) 2 MG SUBL WELLBUTRIN SR 150 MG 12 hr tablet 2. Opiate dependence (H) F11.20 Drug abuse screen (NL, RW) Buprenorphine Qual Urine 3. Major depressive disorder, recurrent episode, moderate (H) F33.1 WELLBUTRIN SR 150 MG 12 hr tablet MEDICATIONS: Orders Placed This Encounter Medications ??? buprenorphine (SUBUTEX) 2 MG SUBL Sig: Place 1 tablet (2 mg) under the tongue 6 times daily Dispense: 168 tablet Refill: 0 ??? WELLBUTRIN SR 150 MG 12 hr tablet Sig: Take 1 tablet (150 mg) by mouth 2 times daily Dispense: 60 tablet Refill: 1 - Continue other medications without change FUTURE APPOINTMENTS: - Follow-up visit in 1 MONTH Edgar Alfredo MD [facility] documented in this encounter Nursing Notes Suyapa Rodriguez CMA - 09/28/2015 3:28 PM CDT Chief Complaint Patient presents with ??? Recheck Medication Initial BP 128/70 mmHg Pulse 77 Estimated body mass index is 30.96 kg/(m^2) as calculated from thefollowing: Height as of 01/07/13: 5' 5.5 (1.664 m). Weight as of 07/28/14: 189 lb (85.73 kg). BP completed using cuff size: large Suyapa Rodriguez MLT, CMA documented in this encounter Plan of Treatment Upcoming Encounters Date Type Specialty Care Team Description 11/15/2021 Office Visit Wound Care Luis Camara DPM [address] [place] [address] (Wo rk) documented as of this encounter Procedures Procedure Name Priority Date/Time Associated Diagnosis Comme nts BUPRENORPHINE QUAL Routine 09/28/2015 3:04 Uncomplicated opioi d Results for this URINE PM CDT dependence (H) procedure are in the results section. DRUG ABUSE SCREEN Routine 09/28/2015 3:04 Uncomplicated opioid Results for this (NL, RW) PM CDT dependence (H) procedure are in the results section. documented in this encounter Results Buprenorphine Qual Urine (09/28/2015 3:04 PM CDT) Patholo gist Method Time Signature Buprenorphine Positive LAB Qual Urine Specimen Anatomical Collection Method Collection Time Receive d Time (Source) Location / / Volume Laterality Urine specimen 09/28/2015 3:04 PM 016 3:09 (specimen) CDT PM CDT Edgar Alfredo MD LAB - URINE ORDERABLES Performing Organization Address City/State/[place] [address] [facility] Building [address] [facility] LAB Drug abuse screen (NL, RW) (09/28/2015 3:04 PM CDT) Component Value Ref Test Analysis Performed Pathologis t Range Method Time At Signature Methamphetamine Negative NEG LAB Qual Urine Cutoff for a negative methamphetamine is 1000 ng/mL or les s. Cocaine Qual Urine Negative NEG LAB Cutoff for a negative cocaine is 300 ng/mL or less. Cannabinoids Qual Negative NEG LAB Urine Cutoff for a negative cannabinoid is 50 ng/mL or less. MDMA Qual Urine Negative NEG LAB Cutoff for a negative MDMA (ecstasy) is 500 ng/mL or less. Methadone Qual Negative NEG LAB Urine Cutoff for a negative methadone is 300 ng/mL or less. Opiates Negative NEG LAB Qualitative Urine Cutoff for a negative opiate is 300 ng/mL or less. Benzodiazepine Negative NEG RJ LAB Qual Urine Cutoff for a negative benzodiazepine is 300 ng/mL or less. Tricyc Anti Qual Negative NEG LAB Urine Cutoff for a negative tricyclic antidepressant is 1000 ng /mL or less. Barbiturates Qual Negative NEG LAB Urine Cutoff for a negative barbituate is 300 ng/mL or less. PCP Qual Urine Negative NEG LAB Cutoff for a negative PCP is 25 ng/mL or less. Amphetamine Qual Negative NEG LAB Urine Cutoff for a negative amphetamine is 1000 ng/mL or less. Oxycodone Qual Negative NEG LAB Urine Cutoff for a negative Oxycodone is 100 ng/mL or less. Specimen Anatomical Collection Method Collection Time Receive d Time (Source) Location / / Volume Laterality Urine specimen 09/28/2015 3:04 PM 016 3:09 (specimen) CDT PM CDT Edgar Alfredo MD LAB - URINE ORDERABLES Performing Organization Address City/[facility] Phon e Number [place], [place] [id number] [place] [address] PRIMARY CARE Building [address] LAB documented in this encounter Visit Diagnoses Diagnosis Uncomplicated opioid dependence (H) - Pr imary Opioid type dependence, unspecified Major depressive disorder, recurrent epi sode, moderate (H) Major depressive disorder, recurrent epi sode, moderate documented in this encounter Care Teams Black Top Roller Relationship Specialty Start Date End Date System, Provider Not In PCP - General Clinic 08/12/14 07/13/16 documented as of this encounter
--- OUTSIDE RECORDS SUMMARY | 2021-11-10 00:46 | XMS_ITS | Encounter Summary ---
:1980 Author Organization [place] Address [address] [facility] [place] [place] [address] Care Team Providers Name Role Phone System, Provider Not In Primary Care Provider Unavailable Reason for Visit Reason Onset Date Comments Refill Request 08/14/2015 Subutex 8mg Encounter Details Date Type Department Care Team Description 08/14/2015 Telephone [facility] Edgar Alfredo, Ref ill Request (Subutex Clinic [place] 8mg) [address] [place] [address] [place] [phone] (Wo rk) Social History Tobacco Use Types Packs/Day Years Used Date Current Every Day Smoker Cigarettes 0.1 10 Smokeless Tobacco: Never Used Comments: 5 cigarettes a day Alcohol Use Standard Drinks/Week Comments No 0 (1 standard drink = 0.6 oz pure alcoho l) Sex Assigned at Date Recorded Female 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 Please let me know when this is done Suyapa Murray MLT, DON Telephone Encounter - Edgar Alfredo MD - 08/14/2015 3:08 PM CDT Needs to be seen Make appointment for 08/18/15 @ 10:30 OK to call in 4 day bridge Telephone Encounter - Mark Roldan - 08/14/2015 11:27 AM CDT Pt was unable to make her appt today, next appt is 09/11. buprenorphine (SUBUTEX) 8 MG SUBL Last Written Prescription Date: 07/20/15 Last Fill Quantity: 32, # refills: 0 Last Office Visit with [facility], [facility] or [facility] prescribing provider: 06/22/15 Next 5 appointments (look out 90 days) Sep 12, 2015 10:45 AM Return Visit with Edgar Alfredo MD [facility] ([facility]) [address] [place] [address] [address] [facility] [place] [address] Thank you, Mark Roldan Can Closing Machine Tender [facility] documented in this encounter Plan of Treatment Upcoming Encounters Date Type Specialty Care Team Description 11/15/2021 Office Visit Wound Care Luis Camara, [place] [address] [place], [place] [address] (Wo rk) documented as of this encounter Visit Diagnoses Diagnosis Uncomplicated opioid dependence (H) - Pr imary Opioid type dependence, unspecified documented in this encounter Care Teams Bookkeepers Supervisor Relationship Specialty Start Date End Date System, Provider Not In PCP - General Clinic 08/12/14 07/13/16 documented as of this encounter
--- OUTSIDE RECORDS SUMMARY | 2021-11-10 00:46 | XMS_ITS | Encounter Summary ---
:1980 Author Organization [place] Address [address] [place] [address] Care Team Providers Name Role Phone System, Provider Not In Primary Care Provider Unavailable Reason for Visit Reason Onset Date Comments [facility] Encounter Details Date Type Department Care Team Description 11/22/2015 Telephone [facility] Edgar Alfredo Pat ient Request ([facility] Ashly VÁSQUEZ appt ) [address] [place] [place] [phone] (Wo rk) Social History Tobacco Use Types Packs/Day Years Used Date Current Every Day Smoker Cigarettes 0.1 10 Smokeless Tobacco: Never Used Comments: 5 cigarettes a day Alcohol Use Standard Drinks/Week Comments No 0 (1 standard drink = 0.6 oz pure alcoho l) Sex Assigned at Date Recorded Female 01/14/2020 10:57 AM MD PSYCHIATRY documented as of this encounter Miscellaneous Notes Telephone Encounter - Suyapa Rodriguez CMA - 11/23/2015 9:09 AM CDT Called pt, left VM message that we could see her today at 2pm. Pt to call back and change appt if that works for her. Telephone Encounter - Edgar Alfredo MD - 11/22/2015 8:24 PM CDT Only possibility would be tomorrow, 11/23/15 @ 2:00 or 4:15. Please let her know Telephone Encounter - Dora Merchant - 11/22/2015 1:45 PM CDT Incoming call from pt requesting a sooner apt than 12/04/15. Pt refused to disclose to speech writer why she'd like to be seen sooner. Please follow up. Contact info: [phone] (Ok to leave detailed message, per pt) Thank you, Dora Merchant Computer Mechanic [facility] documented in this encounter Plan of Treatment Upcoming Encounters Date Type Specialty Care Team Description 11/15/2021 Office Visit Wound Care Luis Camara, [place] [address] [place] [address] (Wo rk) documented as of this encounter Visit Diagnoses Not on filedocumented in this encounter Care Teams Wood Barrel Reconditioner Relationship Specialty Start Date End Date System, Provider Not In PCP - General Clinic 08/12/14 07/13/16 documented as of this encounter
--- OUTSIDE RECORDS SUMMARY | 2021-11-10 00:46 | XMS_ITS | Encounter Summary ---
:1980 Author Organization [place] Address [address] [facility] [address] Care Team Providers Name Role Phone System, Provider Not In Primary Care Provider Unavailable Reason for Visit Reason Comments Recheck Medication Encounter Details Date Type Department Care Team Description 01/08/2016 Office Visit [facility] Edgar Alfredo Uncomplic ated opioid Clinic Ashly Gauthier MD dependence (H) (Primary [address]) [address] [place] [phone] Social History Tobacco Use Types Packs/Day Years Used Date Current Every Day Smoker Cigarettes 0.1 10 Smokeless Tobacco: Never Used Comments: 5 cigarettes a day Alcohol Use Standard Drinks/Week Comments No 0 (1 standard drink = 0.6 oz pure alcoho l) Sex Assigned at Date Recorded Female 01/14/2020 10:57 AM TIEING 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 documented as of this encounter Last Filed Vital Signs Vital Sign Reading Time Taken Comments Blood Pressure 126/99 01/08/2016 10:27 AM TIEING 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 Pulse 112 01/08/2016 10:27 AM TIEING 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 Temperature 36.7 ??C (98 ??F) 01/08/2016 10:27 AM TIEING 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 Respiratory Rate 10 01/08/2016 10:27 AM TIEING 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 Oxygen Saturation 99% 01/08/2016 10:27 AM TIEING 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 Inhaled Oxygen Concentration - - Weight 79.8 kg (176 lb) 01/08/2016 10:27 AM TIEING 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 Height - - Body Mass Index 28.84 01/07/2013 11:29 AM TIEING 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 documented in this encounter Progress Notes Edgar Alfredo MD - 01/08/2016 3:07 PM CST SUBJECTIVE: Stephani King is a 35 year old female who presents to clinic today for the following health issues: OPIOID USE DISORDER - SUBOXONE FOLLOW UP: CURRENT DOSE: 2 MG 5 TIMES DAILY ALL IS THE SAME BUSY WITH KIDS BUT NO NEW PROBLEMS NO CRAVING DOESN'T CONNECT WITH USERS ANYMORE GOES TO [facility], [facility] STUDY DISCUSSED DOSE - NOT READY TO REDUCE TO 8 MG BUT MAY BE READY NEXT TIME CONTINUES TO LIKE SPLITTING DOSE TO 5 TIMES DAILY Status since last visit: Since last visit patient has been: stable. Intensity: ?? There has been: moderate craving. ?? Suboxone Dose: adequate. Progression of Symptoms: ?? Cues to use and relapse triggers: MINIMAL ?? Recovery program has been: ignored. BUT GOES TO [facility] Accompanying Signs & Symptoms: ?? Side Effects: none. Sobriety: ?? Status: no use since last visit. ?? Drug Screen: obtained. Precipitating factors: ?? Triggers have been: mild. Alleviating factors: ?? Contact with sponsor has been: no sponsor. ?? Family and support system has been: helpful. Other Therapies Tried : ?? Patient has been going to recovery meetings:not at all. [place] Board [employer] Data Base Reviewed: YES; no issues Problem list and histories reviewed & adjusted, [...] the tongue 5 times daily 140 tablet 0 ??? loratadine (CLARITIN) 10 MG tablet Take 1 tablet (10 mg) by mouth daily 30 tablet 1 ??? WELLBUTRIN SR 150 MG [...] Take 1 tablet by mouth daily ??? Hekykjbl-Xjm-Bm-FA ( VITAMINS) 0.8 MG TABS Take 1 tablet by mouth daily 30 tablet 6 ??? [DISCONTINUED] VITAMINS PO Take by mouth. No Known Allergies Labs reviewed in EPIC OBJECTIVE: BP 126/99 mmHg Pulse 112 Temp(Src) 98 ??F (36.7 ??C) (Oral) Resp 10 Wt 176 lb (79.833 kg) SpO2 99% Body mass index is 28.83 kg/(m^2). ROS: Constitutional, HEENT, cardiovascular, pulmonary, gi [...] orders placed or performed in visit on 01/08/16 (from the past 24 hour(s)) Drug abuse screen (NL, RW) Result Value Ref Range Methamphetamine Qual Urine NEG Negative Cutoff for a negative methamphetamine is 1000 ng/mL or less. Cocaine Qual Urine (A) NEG Positive Cutoff for a positive cocaine is greater than 300 ng/mL. This is an unconfirmed screening result to be used for medical purposes only. Cannabinoids Qual Urine NEG Negative Cutoff for [...] Range Buprenorphine Qual Urine Positive 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 FOR CARE HOME USE OF HIGH RISK MEDICATION High Risk Drug Monitoring? YES Drug being monitored: Suboxone Reason for drug: Opioid Use Disorder What is being monitored?: Dosage, Cravings, Trigger, side effects, and abstinence. PLAN: ICD-10-CM 1. Uncomplicated opioid dependence (H) F11.20 buprenorphine (SUBUTEX) 2 MG SUBL 2. Opiate dependence (H) F11.20 Drug abuse screen (NL, RW) Buprenorphine Qual Urine MEDICATIONS: Orders Placed This Encounter Medications ??? buprenorphine (SUBUTEX) 2 MG SUBL Sig: Place 1 tablet (2 mg) under the tongue 5 times daily Dispense: 140 tablet Refill: 0 - Continue other medications without change FUTURE APPOINTMENTS: - Follow-up visit in 1 month NEED TO DISCUSS DRUG SCREEN WITH PATIENT DONE- DENIES COCAINE USE; WAS WILLING TO GIVE ANOTHER SAMPLE; I DON'T DO DRUGS Edgar Alfredo MD [facility] NG 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 documented in this encounter Plan of Treatment Upcoming Encounters Date Type Specialty Care Team Description 11/15/2021 Office Visit Wound Care Luis Camara DPM [address] [place] [address] (Wo rk) documented as of this encounter Procedures Procedure Name Priority Date/Time Associated Comments Diagnosis BUPRENORPHINE QUAL Routine 01/08/2016 10:24 Resul ts for this URINE AM TIEING 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 procedure are i n the results section. DRUG ABUSE SCREEN (NL, Routine 01/08/2016 10:24 R esults for this RW) AM TIEING 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 procedure are i n the results section. documented in this encounter Results Buprenorphine Qual Urine (01/08/2016 10:24 AM TIEING 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) Patholo gist Method Time Signature Buprenorphine Positive RJ LAB Qual Urine Specimen Anatomical Collection Method Collection Time Receive d Time (Source) Location / / Volume Laterality Urine specimen 01/08/2016 10:24 6 (specimen) AM TIEING 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 10:25 AM TIEING 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 Edgar Alfredo MD LAB - URINE ORDERABLES Performing Organization Address City/State/[facility] [place] [address] [facility] Building [address] [facility] LAB (ABNORMAL) Drug abuse screen (NL, RW) (01/08/2016 10:24 AM TIEING 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) Component Value Ref Test Analysis Performed Pathologis t Range Method Time At Signature Methamphetamine Negative NEG [facility] LAB Qual Urine Cutoff for a negative methamphetamine is 1000 ng/mL or les s. Cocaine Qual Urine Positive NEG LAB Cutoff for a positive cocai ne is greater than 300 ng/mL. This is an unconfirmed screening result to be used for medical purposes only. (A) Cannabinoids Qual Negative NEG LAB Urine Cutoff [...] Location / / Volume Laterality Urine specimen 01/08/2016 10:24 6 (specimen) AM TIEING 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 10:25 AM TIEING 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 Edgar Alfredo MD LAB - URINE ORDERABLES Performing Organization Address City/[facility] Phon e Number [place], [place] [id number] [place] [address] PRIMARY CARE Building [address] [place] LAB documented in this encounter Visit Diagnoses Diagnosis Uncomplicated opioid dependence (H) - Pr imary Opioid type dependence, unspecified documented in this encounter Care Teams Feeder Operator Relationship Specialty Start Date End Date System, Provider Not In PCP - General Clinic 08/12/14 07/13/16 documented as of this encounter
--- OUTSIDE RECORDS SUMMARY | 2021-11-10 00:46 | XMS_ITS | Encounter Summary ---
:1980 Author Organization [place] Address [address] [facility] [place] [address] Care Team Providers Name Role Phone System, Provider Not In Primary Care Provider Unavailable Reason for Visit Reason Onset Date Comments Recheck Medication Erroneous encounter-disregard 09/25/2015 Encounter Details Date Type Department Care Team Description 09/18/[address] 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 Please disregard. documented in this encounter Plan of Treatment Upcoming Encounters Date Type Specialty Care Team Description 11/15/2021 Office Visit Wound Care Luis Camara, [place] [address] [place] [address] (Wo rk) documented as of this encounter Visit Diagnoses Diagnosis NO SHOW - Primary ERRONEOUS ENCOUNTER--DISREGARD documented in this encounter Care Teams Hot Patcher Relationship Specialty Start Date End Date System, Provider Not In PCP - General Clinic 08/12/14 07/13/16 documented as of this encounter
--- OUTSIDE RECORDS SUMMARY | 2021-11-10 00:46 | XMS_ITS | Encounter Summary ---
:1980 Author Organization [place] Address [address] [facility] [place] [address] Care Team Providers Name Role Phone System, Provider Not In Primary Care Provider Unavailable Reason for Visit Reason Onset Date Comments Medication Request 02/05/2016 Bridge for Subutex 2 mg Encounter Details Date Type Department Care Team Description 02/05/2016 Telephone [facility] Edgar Alfredo, [facility] ication Request Clinic Ashly VÁSQUEZ (Bridge for Subutex [address] [place] mg ) [address] [place] [phone] (Wo rk) Social History Tobacco Use Types Packs/Day Years Used Date Current Every Day Smoker Cigarettes 0.1 10 Smokeless Tobacco: Never Used Comments: 5 cigarettes a day Alcohol Use Standard Drinks/Week Comments No 0 (1 standard drink = 0.6 oz pure alcoho l) Sex Assigned at Date Recorded Female 01/14/2020 10:57 AM FRIT MIXER documented as of this encounter Miscellaneous Notes Telephone Encounter - Edgar Alfredo MD - 02/05/2016 10:02 AM CST Called in bridge Patient notified; left message MIXER Telephone Encounter - SherwindaveMark - 02/05/2016 9:16 AM CST Incoming call from pt she's need a bridge for Subutex 2 mg until her appt on 02/11. Pt can't make her appt for today she has no ride. Pt contact info: [phone] Ok to leave detailed message. Thank you, Mark Roldan Grinder Set Up Operator External [facility] MIXER documented in this encounter Plan of Treatment Upcoming Encounters Date Type Specialty Care Team Description 11/15/2021 Office Visit Wound Care Luis Camara, [place] [address] [place] [address] (Wo rk) documented as of this encounter Visit Diagnoses Diagnosis Uncomplicated opioid dependence (H) - Pr imary Opioid type dependence, unspecified documented in this encounter Care Teams Smoke Inspector Relationship Specialty Start Date End Date System, Provider Not In PCP - General Clinic 08/12/14 07/13/16 documented as of this encounter
--- OUTSIDE RECORDS SUMMARY | 2021-11-10 00:46 | XMS_ITS | Encounter Summary ---
:1980 Author Organization [place] Address [address] [facility] [place] [address] Care Team Providers Name Role Phone System, Provider Not In Primary Care Provider Unavailable Reason for Visit Reason Onset Date Comments Prior Auth - Medication 08/24/2015 subutex 2 mg tab Encounter Details Date Type Department Care Team Description 08/24/2015 Telephone [facility] Edgar Alfredo Pri or Auth - Medication Clinic Ashly VÁSQUEZ (subutex 2 mg tab) [address] [place] [address] [place] [phone] (Wo rk) Social History Tobacco Use Types Packs/Day Years Used Date Current Every Day Smoker Cigarettes 0.1 10 Smokeless Tobacco: Never Used Comments: 5 cigarettes a day Alcohol Use Standard Drinks/Week Comments No 0 (1 standard drink = 0.6 oz pure alcoho l) Sex Assigned at Date Recorded Female 01/14/2020 10:57 AM BASKET OPERATOR documented as of this encounter Miscellaneous Notes Telephone Encounter - Suyapa Rodriguez CMA - 08/25/2015 10:13 AM CDT PA approval received #[id number], brandon thru 02/23/16. faxed to pharmacy Telephone Encounter - Suyapa Rodriguez CMA - 08/24/2015 4:01 PM CDT PA request faxed to [facility], marked URGENT documented in this encounter Plan of Treatment Upcoming Encounters Date Type Specialty Care Team Description 11/15/2021 Office Visit Wound Care Luis Camara, [place] [address] [place] [phone] (Wo rk) documented as of this encounter Visit Diagnoses Not on filedocumented in this encounter Care Teams Integration Technician Relationship Specialty Start Date End Date System, Provider Not In PCP - General Clinic 08/12/14 07/13/16 documented as of this encounter
--- OUTSIDE RECORDS SUMMARY | 2021-11-10 00:46 | XMS_ITS | Encounter Summary ---
:1980 Author Organization [place] Address [address] [facility] [place] [address] Care Team Providers Name Role Phone System, Provider Not In Primary Care Provider Unavailable Reason for Visit Reason Onset Date Comments Medication Request 10/25/2015 Encounter Details Date Type Department Care Team Description 10/25/2015 Telephone [facility] Edgar Alfredo Ma rk, Medication Request [place] [address] [place] [place] [phone] (Wo rk) Social History Tobacco Use Types Packs/Day Years Used Date Current Every Day Smoker Cigarettes 0.1 10 Smokeless Tobacco: Never Used Comments: 5 cigarettes a day Alcohol Use Standard Drinks/Week Comments No 0 (1 standard drink = 0.6 oz pure alcoho l) Sex Assigned at Date Recorded Female 01/14/2020 10:57 AM ANGLESMITH HELPER documented as of this encounter Miscellaneous Notes Addendum Note - Suyapa Murray CMA - 10/26/2015 11:09 AM CDT Addended by: SUYAPA MURRAY on: 10/26/2015 11:09 AM Modules accepted: Medications Telephone Encounter - Suyapa Murray CMA - 10/26/2015 11:09 AM CDT Rx called to [facility] Telephone Encounter - Edgar Alfredo MD - 10/26/2015 10:42 AM CDT Bridge ordered please call in Telephone Encounter - Loretta Mccoy - 10/25/2015 2:35 PM CDT Patient missed her appointment on 10/24/15. She is scheudled to see 11/06/15. Wondering if she can get a Subutex bridge until her next appointment. Please advise. documented in this encounter Plan of Treatment Upcoming Encounters Date Type Specialty Care Team Description 11/15/2021 Office Visit Wound Care Luis Camara, [place] [address] [place] [address] (Wo rk) documented as of this encounter Visit Diagnoses Diagnosis Uncomplicated opioid dependence (H) - Pr imary Opioid type dependence, unspecified documented in this encounter Care Teams Loan Analyst Relationship Specialty Start Date End Date System, Provider Not In PCP - General Clinic 08/12/14 07/13/16 documented as of this encounter
--- OUTSIDE RECORDS SUMMARY | 2021-11-10 00:46 | XMS_ITS | Encounter Summary ---
:1980 Author Organization [place] Address [address] [facility] [place] [address] Care Team Providers Name Role Phone System, Provider Not In Primary Care Provider Unavailable Reason for Visit Reason Onset Date Comments Medication Request 01/01/2016 Bridge for Subutex Encounter Details Date Type Department Care Team Description 01/01/2016 Telephone [facility] Edgar Alfredo, [facility] ication Request Clinic Aslhy VÁSQUEZ (Bridge for Subutex) [address] [place] [address] [place] [phone] (Wo rk) Social History Tobacco Use Types Packs/Day Years Used Date Current Every Day Smoker Cigarettes 0.1 10 Smokeless Tobacco: Never Used Comments: 5 cigarettes a day Alcohol Use Standard Drinks/Week Comments No 0 (1 standard drink = 0.6 oz pure alcoho l) Sex Assigned at Date Recorded Female 01/14/2020 10:57 AM MANAGER DATA documented as of this encounter Miscellaneous Notes Telephone Encounter - Edgar Alfredo MD - 01/01/2016 12:39 PM CST Bridge called in Patient notified GER DATA Telephone Encounter - Dora Merchant - 01/01/2016 12:05 PM CST Incoming call from pt checking on the status of request below. Thank you, Dora Merchant Clamp Forklift Operator [facility] GER DATA Telephone Encounter - Mark Roldan - 01/01/2016 9:16 AM CST Reason for Call: Bridge for Subutex Detailed comments: pt can't make her appt today, its reschedule to 01/07, pt 's requesting a bridge for Subutex Phone Number Patient can be reached at: Home number on file [phone] (home) Best Time: anytime Can we leave a detailed message on this number? YES Call taken on 01/01/2016 at 9:16 AM by Mark Roldan Thank you, Mark Roldan Clamp Forklift Operator [facility] GER DATA documented in this encounter Plan of Treatment Upcoming Encounters Date Type Specialty Care Team Description 11/15/2021 Office Visit Wound Care Luis Camara, [place] [address] [place] [address] (Wo rk) documented as of this encounter Visit Diagnoses Diagnosis Uncomplicated opioid dependence (H) - Pr imary Opioid type dependence, unspecified documented in this encounter Care Teams Automation Operator Relationship Specialty Start Date End Date System, Provider Not In PCP - General Clinic 08/12/14 07/13/16 documented as of this encounter
--- OUTSIDE RECORDS SUMMARY | 2021-11-10 00:46 | XMS_ITS | Encounter Summary ---
:1980 Author Organization [place] Address [address] [place] [address] Care Team Providers Name Role Phone System, Provider Not In Primary Care Provider Unavailable Reason for Visit Reason Onset Date Comments Recheck Medication Erroneous encounter-disregard 10/24/2015 Encounter Details Date Type Department Care Team Description 10/24/2015 Office Visit [facility] Edgar Alfredo NO SHOW ( Primary Dx) Clinic Ashly Gauthier MD [address] [place] [address] [place] [phone] Social History Tobacco Use Types Packs/Day Years Used Date Current Every Day Smoker Cigarettes 0.1 10 Smokeless Tobacco: Never Used Comments: 5 cigarettes a day Alcohol Use Standard Drinks/Week Comments No 0 (1 standard drink = 0.6 oz pure alcoho l) Sex Assigned at Date Recorded Female 01/14/2020 10:57 AM BELT CHANGER documented as of this encounter Progress Notes Edgar Alfredo MD - 10/24/2015 1:06 PM CDT This encounter was opened in error. Please disregard. documented in this encounter Plan of Treatment Upcoming Encounters Date Type Specialty Care Team Description 11/15/2021 Office Visit Wound Care Luis Camara, [place] [address] [place] [address] (Wo rk) documented as of this encounter Visit Diagnoses Diagnosis NO SHOW - Primary documented in this encounter Care Teams Sawdust Drier Relationship Specialty Start Date End Date System, Provider Not In PCP - General Clinic 08/12/14 07/13/16 documented as of this encounter
--- OUTSIDE RECORDS SUMMARY | 2021-11-10 00:46 | XMS_ITS | Encounter Summary ---
:1980 Author Organization [place] Address [address] [facility] [place] [address] Care Team Providers Name Role Phone System, Provider Not In Primary Care Provider Unavailable Reason for Visit Reason Comments Recheck Medication Encounter Details Date Type Department Care Team Description 02/13/2016 Office Visit [facility] Edgar Alfredo Uncomplic ated opioid Clinic Ashly Gauthier MD dependence (H) (Primary [address]) [address] [place] [phone] Social History Tobacco Use Types Packs/Day Years Used Date Current Every Day Smoker Cigarettes 0.1 10 Smokeless Tobacco: Never Used Comments: 5 cigarettes a day Alcohol Use Standard Drinks/Week Comments No 0 (1 standard drink = 0.6 oz pure alcoho l) Sex Assigned at Date Recorded Female 01/14/2020 10:57 AM RESERVES CLERK documented as of this encounter Last Filed Vital Signs Vital Sign Reading Time Taken Comments Blood Pressure 145/97 02/13/2016 10:59 AM RESERVES CLERK Pulse 113 02/13/2016 10:59 AM RESERVES CLERK Temperature 36.6 ??C (97.9 ??F) 02/13/2016 10:59 AM RESERVES CLERK Respiratory Rate 10 02/13/2016 10:59 AM RESERVES CLERK Oxygen Saturation 98% 02/13/2016 10:59 AM RESERVES CLERK Inhaled Oxygen Concentration - - Weight 79.4 kg (175 lb) 02/13/2016 10:59 AM RESERVES CLERK Height - - Body Mass Index 28.68 01/07/2013 11:29 AM RESERVES CLERK documented in this encounter Progress Notes Edgar Alfredo MD - 02/14/2016 12:50 PM CST SUBJECTIVE: Stephani King is a 35 year old female who presents to clinic today for the following health issues: OPIOID USE DISORDER - SUBOXONE FOLLOW UP: CURRENT DOSE: 10 MG DAILY NO CHANGE NOT WANTING TO DECREASE SUBOXONE KISHA HAD A GOOD SAHIL WITH KIDS THINKS SHE MAY BE CONTINUE SAME Status since last visit: Since last visit [...] been going to recovery meetings:not at all. [place] Board [employer]acy Data Base Reviewed: YES; NO ISSUES Problem list and histories reviewed & adjusted, [...] Take 1 tablet by mouth daily ??? Vgsnstov-Swl-Ge-FA ( VITAMINS) 0.8 MG TABS Take 1 tablet by mouth daily 30 tablet 6 ??? [DISCONTINUED] VITAMINS PO Take by mouth. No Known Allergies Labs reviewed in EPIC OBJECTIVE: BP 145/97 mmHg Pulse 113 Temp(Src) 97.9 ??F (36.6 ??C) (Oral) Resp 10 Wt 175 lb (79.379 kg) SpO2 98% Body mass index is 28.67 kg/(m^2). ROS: Constitutional, HEENT, cardiovascular, pulmonary, gi [...] orders placed or performed in visit on 02/13/16 Buprenorphine Qual Urine Result Value Ref Range [...] less. 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 FOR LONG-TERM USE OF HIGH RISK MEDICATION High Risk Drug Monitoring? YES Drug being monitored: Suboxone Reason for drug: Opioid Use Disorder What is being monitored?: Dosage, Cravings, Trigger, side effects, and continued abstinence. PLAN: ICD-10-CM 1. Uncomplicated opioid dependence (H) F11.20 buprenorphine (SUBUTEX) 2 MG SUBL sublingual tablet 2. Opiate dependence (H) F11.20 Buprenorphine Qual Urine Drug abuse screen (NL, RW) Drug abuse screen (NL, RW) MEDICATIONS: Orders Placed This Encounter Medications ??? buprenorphine (SUBUTEX) 2 MG SUBL sublingual tablet Sig: Place 1 tablet (2 mg) under the tongue 5 times daily Dispense: 140 tablet Refill: 0 - Continue other medications without change FUTURE APPOINTMENTS: - Follow-up visit in 2 MONTHS Edgar Alfredo MD [facility] RVES CLERK documented in this encounter Plan of Treatment Upcoming Encounters Date Type Specialty Care Team Description 11/15/2021 Office Visit Wound Care Luis Camara DPM [address] [place] [address] (Wo rk) documented as of this encounter Procedures Procedure Name Priority Date/Time Associated Diagnosis Comme nts BUPRENORPHINE QUAL Routine 02/13/2016 10:58 Uncomplicated opio id Results for this URINE AM RESERVES CLERK dependence (H) procedure are in the results section. DRUG ABUSE SCREEN Routine 02/13/2016 10:58 Uncomplicated opioi d Results for this (NL, RW) AM RESERVES CLERK dependence (H) procedure are in the results section. documented in this encounter Results Drug abuse screen (NL, RW) (02/13/2016 10:58 AM RESERVES CLERK) Component Value Ref Test Analysis Performed Pathologis [...] Location / / Volume Laterality Urine specimen 02/13/2016 10:58 6 (specimen) AM RESERVES CLERK 10:59 AM RESERVES CLERK Edgar Alfredo MD LAB - URINE ORDERABLES Performing Organization Address City/State/[facility] [place] [address] [facility] Building [address] [facility] Buprenorphine Qual Urine (02/13/2016 10:58 AM RESERVES CLERK) [facility] Method Time Signature Buprenorphine Positive [facility] Qual Urine Specimen Anatomical Collection Method Collection Time Receive d Time (Source) Location / / Volume Laterality Urine specimen 02/13/2016 10:58 6 (specimen) AM RESERVES CLERK 10:59 AM RESERVES CLERK Edgar Alfredo MD LAB - URINE ORDERABLES Performing Organization Address City/State/[place] [address] [facility] Building [address] [facility] documented in this encounter Visit Diagnoses Diagnosis Uncomplicated opioid dependence (H) - Pr imary Opioid type dependence, unspecified documented in this encounter Care Teams Soda Fountain Operator Relationship Specialty Start Date End Date System, Provider Not In PCP - General Clinic 08/12/14 07/13/16 documented as of this encounter
--- OUTSIDE RECORDS SUMMARY | 2021-11-10 00:46 | XMS_ITS | Encounter Summary ---
:1980 Author Organization [place] Address [address] [place] [address] Care Team Providers Name Role Phone System, Provider Not In Primary Care Provider Unavailable Reason for Visit Reason Onset Date Comments No Show Erroneous encounter-disregard 08/14/2015 Encounter Details Date Type Department Care Team Description 08/14/2015 Office Visit [facility] Edgar Alfredo NO SHOW ( Primary Dx); Clinic Ashly Gauthier MD ERRONEOUS ENCOUNTER--DISREGARD [address] [place] [address] [place] [phone] Social History Tobacco Use Types Packs/Day Years Used Date Current Every Day Smoker Cigarettes 0.1 10 Smokeless Tobacco: Never Used Comments: 5 cigarettes a day Alcohol Use Standard Drinks/Week Comments No 0 (1 standard drink = 0.6 oz pure alcoho l) Sex Assigned at Date Recorded Female 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 Please disregard. documented in this encounter Plan of Treatment Upcoming Encounters Date Type Specialty Care Team Description 11/15/2021 Office Visit Wound Care Luis Camara, [place] [address] [place] [address] (Wo rk) documented as of this encounter Visit Diagnoses Diagnosis NO SHOW - Primary ERRONEOUS ENCOUNTER--DISREGARD documented in this encounter Care Teams Second Class Welder Relationship Specialty Start Date End Date System, Provider Not In PCP - General Clinic 08/12/14 07/13/16 documented as of this encounter
--- OUTSIDE RECORDS SUMMARY | 2021-11-10 00:46 | XMS_ITS | Encounter Summary ---
:1980 Author Organization [place] Address [address] [facility] [place] [address] Care Team Providers Name Role Phone System, Provider Not In Primary Care Provider Unavailable Reason for Visit Reason Onset Date Comments Refill Request 08/22/2015 Emergency Appointmen t Needed Today (SUBOXONE) Encounter Details Date Type Department Care Team Description 08/22/2015 Telephone [facility] Edgar Alfredo, Ref ill Request Clinic Ashly VÁSQUEZ (Emergency Appointment [address] [place] Needed Today [phone] (SUBOXONE)) [place] [phone] (Wo rk) Social History Tobacco Use Types Packs/Day Years Used Date Current Every Day Smoker Cigarettes 0.1 10 Smokeless Tobacco: Never Used Comments: 5 cigarettes a day Alcohol Use Standard Drinks/Week Comments No 0 (1 standard drink = 0.6 oz pure alcoho l) Sex Assigned at Date Recorded Female 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 Alfredo, no meds until seen or UTOX negative. Pt notified and stated understanding, will keep appt on . Telephone Encounter - Brenda Jefferson - 08/22/2015 2:35 PM CDT Patient scheduled 08/24/15. Unable to leave UA until then, requesting bridge script call back number is [phone], stated she would like a call back from Dr. Alfredo or Suyapa. BRENDA JEFFERSON MA Telephone Encounter - Edgar Alfredo MD - 08/22/2015 11:31 AM CDT Needs to leave drug screen; if neg will order bridge until Thurs Telephone Encounter - Suyapa Rodriguez CMA - 08/22/2015 11:16 AM CDT Left message for pt on VM, too late to be seen this morning, offered Thurs. 08/23 @ 2:15pm, pt to callback to schedule. Telephone Encounter - Lupe Lantigua CMA - 08/22/2015 11:08 AM CDT Patient called from [phone] stating she has missed her last 4 scheduled appointments and she isall out of medication. Patient will like to be seen today. Staff informed patient call will be routed to and his MA. Patient understood. Lupe Lantigua MA documented in this encounter Plan of Treatment Upcoming Encounters Date Type Specialty Care Team Description 11/15/2021 Office Visit Wound Care Luis Camara DPM [address] [place] [address] (Wo rk) documented as of this encounter Visit Diagnoses Not on filedocumented in this encounter Care Teams Assistant Clinical Nurse Manager Relationship Specialty Start Date End Date System, Provider Not In PCP - General Clinic 08/12/14 07/13/16 documented as of this encounter
--- OUTSIDE RECORDS SUMMARY | 2021-11-10 00:46 | XMS_ITS | Encounter Summary ---
:1980 Author Organization [place] Address [address] [place] [address] Care Team Providers Name Role Phone System, Provider Not In Primary Care Provider Unavailable Reason for Visit Reason Comments Recheck Medication Encounter Details Date Type Department Care Team Description 11/06/2015 Office Visit [facility] Edgar Alfredo Seasonal allergic rhinitis (Primary Dx); Clinic Ashly Gauthier MD Uncomplicated opioid dependence (H) [address] [place] [phone] Social History Tobacco Use Types Packs/Day Years Used Date Current Every Day Smoker Cigarettes 0.1 10 Smokeless Tobacco: Never Used Comments: 5 cigarettes a day Alcohol Use Standard Drinks/Week Comments No 0 (1 standard drink = 0.6 oz pure alcoho l) Sex Assigned at Date Recorded Female 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 documented as of this encounter Last Filed Vital Signs Vital Sign Reading Time Taken Comments Blood Pressure 114/72 11/06/2015 11:04 AM CDT Pulse 87 11/06/2015 11:04 AM CDT Temperature - - Respiratory Rate - - Oxygen Saturation - - Inhaled Oxygen Concentration - - Weight - - Height - - Body Mass Index - - documented in this encounter Progress Notes Edgar Alfredo MD - 11/06/2015 2:36 PM CDT SUBJECTIVE: Stephani King is a 35 year old female who presents to clinic today for the following health issues: Suboxone followup DOING OK REMAINS STRESSED KIDS SICK RECENTLY DISCUSSED SUBUTEX DOSE; 8 MG AT ONCE MAKES HER TOO TIRED SO SHE SPLITS IT INTO 2 MG 6 X PER DAY DISCUSSED REDUCING TO 5 X PER DAY SUBOXONE CAUSES NIGHTMARES; PREFERS SUBUTEX RE-CHECK 1 MONTH Status since last visit: Since last visit patient has been: stable. Intensity: ?? There has been: no craving. ?? Suboxone Dose: too high. Progression of Symptoms: ?? Cues to use and relapse TRIGGERS: MILD ?? Recovery program has been: weak. Accompanying [...] Outpatient Prescriptions Medication Sig Dispense Refill ??? loratadine (CLARITIN) 10 MG tablet Take 1 tablet (10 mg) by mouth daily 30 tablet 1 ??? buprenorphine (SUBUTEX) [address] 1 tablet (2 mg) under the tongue 5 times daily 140 tablet 0 ??? WELLBUTRIN SR 150 MG [...] Take 1 tablet by mouth daily ??? Qearxsqo-Zox-Ym-FA ( VITAMINS) 0.8 MG TABS Take 1 tablet by mouth daily 30 tablet 6 ??? [DISCONTINUED] VITAMINS PO Take by mouth. No Known Allergies Problem list, Medication list, Allergies, and Medical/Social/Surgical histories reviewed in [facility] andupdated as appropriate. ROS: OBJECTIVE: BP 114/72 mmHg Pulse 87 There is no weight on file to calculate BMI. ROS: Constitutional, HEENT, cardiovascular, pulmonary, gi and gu systems are negative, except as otherwise noted. BP 114/72 mmHg Pulse 87 EXAM: GENERAL APPEARANCE: healthy, alert and no [...] orders placed or performed in visit on 11/06/15 (from the past 24 hour(s)) Drug abuse [...] Result Value Ref Range Buprenorphine Qual Urine Negative ASSESSMENT: OPIOID DEPENDENCE, UNCOMPLICATED PLAN: ICD-10-CM 1. Seasonal allergic rhinitis J30.2 loratadine (CLARITIN) 10 MG tablet 2. Opiate dependence (H) F11.20 Drug abuse screen (NL, RW) Buprenorphine Qual Urine 3. Uncomplicated opioid dependence (H) F11.20 buprenorphine (SUBUTEX) 2 MG SUBL MEDICATIONS: Orders Placed This Encounter Medications ??? loratadine (CLARITIN) 10 MG tablet Sig: Take 1 tablet (10 mg) by mouth daily Dispense: 30 tablet Refill: 1 ??? buprenorphine (SUBUTEX) 2 MG SUBL Sig: Place 1 tablet (2 mg) under the tongue 5 times daily Dispense: 140 tablet Refill: 0 - Continue other medications without change FUTURE APPOINTMENTS: - Follow-up visit in 1 MONTH Edgar Alfredo MD [facility] documented in this encounter Nursing Notes Suyapa Rodriguez CMA - 11/06/2015 11:04 AM CDT Chief Complaint Patient presents with ??? Recheck Medication Initial BP 114/72 mmHg Pulse 87 Estimated body mass index is 30.96 kg/(m^2) as calculated from thefollowing: Height as of 13: 5' 5.5 (1.664 m). Weight as of 07/28/14: 189 lb (85.73 kg). BP completed using cuff size: large Suyapa Rodriguez MLT, CMA documented in this encounter Plan of Treatment Upcoming Encounters Date Type Specialty Care Team Description 11/15/2021 Office Visit Wound Care Luis Camara DPM [address] [place] [address] (Wo rk) documented as of this encounter Procedures Procedure Name Priority Date/Time Associated Diagnosis Comme nts BUPRENORPHINE QUAL Routine 11/06/2015 10:55 Uncomplicated opio id Results for this URINE AM CDT dependence (H) procedure are in the results section. DRUG ABUSE SCREEN Routine 11/06/2015 10:55 Uncomplicated opioi d Results for this (NL, RW) AM CDT dependence (H) procedure are in the results section. documented in this encounter Results Buprenorphine Qual Urine (11/06/2015 10:55 AM CDT) Patholo gist Method Time Signature Buprenorphine Negative [facility] LAB Qual Urine Specimen Anatomical Collection Method Collection Time Receive d Time (Source) Location / / Volume Laterality Urine specimen 11/06/2015 10:55 6 (specimen) AM CDT 11:00 AM CDT Edgar Alfredo MD LAB - URINE ORDERABLES Performing Organization Address City/State/[place] [address] [facility] Building [address] [facility] Drug abuse screen (NL, RW) (11/06/2015 10:55 AM CDT) Component Value Ref Test Analysis [...] Location / / Volume Laterality Urine specimen 11/06/2015 10:55 6 (specimen) AM CDT 11:00 AM CDT Edgar Alfredo MD LAB - URINE ORDERABLES Performing Organization Address City/[facility] [place] [address] [facility] Building [address] LAB documented in this encounter Visit Diagnoses Diagnosis Seasonal allergic rhinitis - Primary Allergic rhinitis, cause unspecified Uncomplicated opioid dependence (H) Opioid type dependence, unspecified documented in this encounter Care Teams Home Health Nurse Licensed Practical Relationship Specialty Start Date End Date System, Provider Not In PCP - General Clinic 08/12/14 07/13/16 documented as of this encounter
--- OUTSIDE RECORDS SUMMARY | 2021-11-10 00:46 | XMS_ITS | Encounter Summary ---
:1980 Author Organization [place] Address [address] [facility] [place] [address] Care Team Providers Name Role Phone System, Provider Not In Primary Care Provider Unavailable Encounter Details Date Type Department Care Team Description 06/13/2016 Telephone [facility] Nithya Alfredo MD [place] [address] [place] [address] [place], [place] [address] [phone] [place] [phone] Social History Tobacco Use Types Packs/Day Years Used Date Current Every Day Smoker Cigarettes 0.1 10 Smokeless Tobacco: Never Used Comments: 5 cigarettes a day Alcohol Use Standard Drinks/Week Comments No 0 (1 standard drink = 0.6 oz pure alcoho l) Sex Assigned at Date Recorded Female 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 documented as of this encounter Miscellaneous Notes Telephone Encounter - Edgar Alfredo MD - 06/13/2016 1:57 PM CDT Subutex denied Suboxone film ordered Appointment 06/17/16 documented in this encounter Plan of Treatment Upcoming Encounters Date Type Specialty Care Team Description 11/15/2021 Office Visit Wound Care Luis Camara DPM [address] [place], [place] [phone] (Wo rk) documented as of this encounter Visit Diagnoses Not on filedocumented in this encounter Care Teams Postbed Stitcher Relationship Specialty Start Date End Date System, Provider Not In PCP - General Clinic 08/12/14 07/13/16 documented as of this encounter
--- OUTSIDE RECORDS SUMMARY | 2021-11-10 00:46 | XMS_ITS | Encounter Summary ---
:1980 Author Organization [place] Address [address] [facility] [place] [address] Care Team Providers Name Role Phone System, Provider Not In Primary Care Provider Unavailable Reason for Visit Reason Comments Recheck Medication Encounter Details Date Type Department Care Team Description 12/04/2015 Office Visit [facility] Edgar Alfredo Uncomplic ated opioid Clinic Ashly Gauthier MD dependence (H) (Primary [address]) [address] [place] [phone] Social History Tobacco Use Types Packs/Day Years Used Date Current Every Day Smoker Cigarettes 0.1 10 Smokeless Tobacco: Never Used Comments: 5 cigarettes a day Alcohol Use Standard Drinks/Week Comments No 0 (1 standard drink = 0.6 oz pure alcoho l) Sex Assigned at Date Recorded Female 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/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 documented as of this encounter Last Filed Vital Signs Vital Sign Reading Time Taken Comments Blood Pressure 137/81 12/04/2015 12:00 PM CDT Pulse 76 12/04/2015 12:00 PM CDT Temperature - - Respiratory Rate - - Oxygen Saturation - - Inhaled Oxygen Concentration - - Weight - - Height - - Body Mass Index - - documented in this encounter Progress Notes Edgar Alfredo MD - 12/05/2015 2:18 PM CDT SUBJECTIVE: Stephani King is a 35 year old female who presents to clinic today for the following health issues: SUBOXONE FOLLOW UP: NO NEW PROBLEMS REDUCED SUBOXONE TO 10 MG BUT NOT READY TO REDUCE FURTHER NO CRAVING NO QUESTIONS BUSY WITH KIDS Status since last visit: Since last visit patient has been: stable. Intensity: ?? There has been: . NO CRAVING ?? Suboxone Dose: adequate. Progression of Symptoms: ?? Cues to use and relapse triggers NONE ?? Recovery program has been: ignored. Accompanying [...] been going to recovery meetings:not at all. [place] Board [employer] Pharmacy Data Base Reviewed: NO; NOT AT THIS POINT Problem list and histories reviewed & adjusted, [...] Take 1 tablet by mouth daily ??? Ajdkkmjp-Iam-Us-FA ( VITAMINS) 0.8 MG TABS Take 1 tablet by mouth daily 30 tablet 6 ??? [DISCONTINUED] VITAMINS PO Take by mouth. No Known Allergies Labs reviewed in [facility] OBJECTIVE: BP 137/81 mmHg Pulse 76 There is no weight on file to calculate BMI. ROS: Constitutional, HEENT, cardiovascular, pulmonary, gi and gu systems are negative, except as otherwise noted. BP 137/81 mmHg Pulse 76 EXAM: GENERAL APPEARANCE: healthy, alert and no [...] orders placed or performed in visit on 12/04/15 Drug abuse screen (NL, RW) Result Value [...] visit in 1 MONTH Edgar Alfredo MD [facility] documented in this encounter Nursing Notes Sabina Mckay CMA - 12/04/2015 12:01 PM CDT Chief Complaint Patient presents with ??? Recheck Medication Initial BP 137/81 mmHg Pulse 76 Estimated body mass index is 30.96 kg/(m^2) as calculated from thefollowing: Height as of 13: 5' 5.5 (1.664 m). Weight as of 07/28/14: 189 lb (85.73 kg). BP completed using cuff size: catalino Mckay MA documented in this encounter Plan of Treatment Upcoming Encounters Date Type Specialty Care Team Description 11/15/2021 Office Visit Wound Care Luis Camara DPM [address] [place] [address] (Wo rk) documented as of this encounter Procedures Procedure Name Priority Date/Time Associated Comments Diagnosis BUPRENORPHINE QUAL Routine 12/04/2015 11:28 Resul ts for this URINE AM CDT procedure are i n the results section. DRUG ABUSE SCREEN (NL, Routine 12/04/2015 11:28 R esults for this RW) AM CDT procedure are i n the results section. documented in this encounter Results Buprenorphine Qual Urine (12/04/2015 11:28 AM CDT) Patholo gist Method Time Signature Buprenorphine Positive [facility] Qual Urine [facility] Specimen Anatomical Collection Method Collection Time Receive d Time (Source) Location / / Volume Laterality Urine specimen 12/04/2015 11:28 6 (specimen) AM CDT 11:29 AM CDT Edgar Alfredo MD LAB - URINE ORDERABLES Performing Organization Address City/State/ZIP Code Phon e Number [facility] [address] [place] [id number] Drug abuse screen (NL, RW) (12/04/2015 11:28 AM CDT) Component Value Ref Test Analysis Performed Pathologis t Range Method Time At Signature Methamphetamine Negative NEG [facility] Qual Urine Cutoff for a negative methamphetamine is 1000 ng/mL or le ss. [facility] Cocaine Qual Urine Negative NEG [facility] Cutoff for a negative cocaine is 300 ng/mL or less. [facility] Cannabinoids Qual Negative NEG [facility] Urine Cutoff for a negative cannabinoid is 50 ng/mL or less. [facility] MDMA Qual Urine Negative NEG [facility] Cutoff for a negative MDMA (ecstasy) is 500 ng/mL or less. [facility] Methadone Qual Negative NEG [facility] Urine Cutoff for a negative methadone is 300 ng/mL or less. [facility] Opiates Negative NEG [facility] Qualitative Urine Cutoff for a negative opiate is 300 ng/mL or less. [facility] Benzodiazepine Negative NEG [facility] Qual Urine Cutoff for a negative benzodiazepine is 300 ng/mL or less . [facility] Tricyc Anti Qual Negative NEG [facility] Urine Cutoff for a negative tricyclic antidepressant is 1000 ng /mL or less. [facility] Barbiturates Qual Negative NEG [facility] Urine Cutoff for a negative barbituate is 300 ng/mL or less. [facility] PCP Qual Urine Negative NEG [facility] Cutoff for a negative PCP is 25 ng/mL or less. [facility] Amphetamine Qual Negative NEG [facility] Urine Cutoff for a negative amphetamine is 1000 ng/mL or less. [facility] Oxycodone Qual Negative NEG [facility] Urine Cutoff for a negative Oxycodone is 100 ng/mL or less. [facility] Specimen Anatomical Collection Method Collection Time Receive d Time (Source) Location / / Volume Laterality Urine specimen 12/04/2015 11:28 6 (specimen) AM CDT 11:29 AM CDT Edgar Alfredo MD LAB - URINE ORDERABLES Performing Organization Address City/State/[place] Code Phon e Number [facility] [address] [place] [id number] documented in this encounter Visit Diagnoses Diagnosis Uncomplicated opioid dependence (H) - Pr imary Opioid type dependence, unspecified documented in this encounter Care Teams Recoil Spring Winder Relationship Specialty Start Date End Date System, Provider Not In PCP - General Clinic 08/12/14 07/13/16 documented as of this encounter
--- OUTSIDE RECORDS SUMMARY | 2021-11-10 00:46 | XMS_ITS | Encounter Summary ---
:1980 Author Organization [place] Address [address] [facility] [place] [address] Care Team Providers Name Role Phone System, Provider Not In Primary Care Provider Unavailable Reason for Visit Reason Onset Date Comments No Show Erroneous encounter-disregard 08/21/2015 Encounter Details Date Type Department Care Team Description 08/14/2015 Office Visit [facility] Edgar Alfredo NO SHOW ( Primary Dx); Clinic Ashly Gauthier MD ERRONEOUS ENCOUNTER--DISREGARD [address] [place] [place] [phone] Social History Tobacco Use Types Packs/Day Years Used Date Current Every Day Smoker Cigarettes 0.1 10 Smokeless Tobacco: Never Used Comments: 5 cigarettes a day Alcohol Use Standard Drinks/Week Comments No 0 (1 standard drink = 0.6 oz pure alcoho l) Sex Assigned at Date Recorded Female 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 Please disregard. documented in this encounter Plan of Treatment Upcoming Encounters Date Type Specialty Care Team Description 11/15/2021 Office Visit [facility] Luis Camara, [place] [address] [place] [address] (Wo rk) documented as of this encounter Visit Diagnoses Diagnosis NO SHOW - Primary ERRONEOUS ENCOUNTER--DISREGARD documented in this encounter Care Teams Director General Relationship Specialty Start Date End Date System, Provider Not In PCP - General Clinic 08/12/14 07/13/16 documented as of this encounter
--- OUTSIDE RECORDS SUMMARY | 2021-11-10 00:46 | XMS_ITS | Encounter Summary ---
:1980 Author Organization [place] Address [address] [facility] [place] [address] Care Team Providers Name Role Phone System, Provider Not In Primary Care Provider Unavailable Reason for Visit Reason Onset Date Comments Refill Request 10/17/2015 Subutex 2mg Encounter Details Date Type Department Care Team Description 10/17/2015 Refill [facility] Edgar Alfredo, Ref ill Request (Subutex Clinic [facility] 2mg ) [address] [place] [place] [phone] (Wo rk) Social History Tobacco Use Types Packs/Day Years Used Date Current Every Day Smoker Cigarettes 0.1 10 Smokeless Tobacco: Never Used Comments: 5 cigarettes a day Alcohol Use Standard Drinks/Week Comments No 0 (1 standard drink = 0.6 oz pure alcoho l) Sex Assigned at Date Recorded Female 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 Pharmacy notified. Telephone Encounter - Mark Roldan - 10/17/2015 9:20 AM CDT buprenorphine (SUBUTEX) 2 MG SUBL Last Written Prescription Date: 09/28/15 Last Fill Quantity: 168, # refills: 0 Last Office Visit with G, P or [facility] prescribing provider: 09/28/15 Next 5 appointments (look out 90 days) Oct 24, 2015 11:30 AM Return Visit with Edgar Alfredo MD [facility] ([facility]) [address] [place] [address] [address] [facility] [phone] Thank you, Mark Roldan Health Systems Analyst [facility] documented in this encounter Plan of Treatment Upcoming Encounters Date Type Specialty Care Team Description 11/15/2021 Office Visit W[facility] Care Luis Camara, [place] [address] [place], [place] [phone] (Wo rk) documented as of this encounter Visit Diagnoses Diagnosis Uncomplicated opioid dependence (H) - Pr imary Opioid type dependence, unspecified documented in this encounter Care Teams Set Illustrator Relationship Specialty Start Date End Date System, Provider Not In PCP - General Clinic 08/12/14 07/13/16 documented as of this encounter
--- OUTSIDE RECORDS SUMMARY | 2021-11-10 00:46 | XMS_ITS | Encounter Summary ---
:1980 Author Organization [place] Address [address] [facility] [place] [address] Care Team Providers Name Role Phone System, Provider Not In Primary Care Provider Unavailable Reason for Visit Reason Onset Date Comments Prior Auth - Medication 10/26/2015 subutex 2 mg Encounter Details Date Type Department Care Team Description 10/26/2015 Telephone [facility] Edgar Alfredo Pri or Auth - Medication Clinic Ashly VÁSQUEZ (subutex 2 mg) [address] [place] [address] [place] [phone] (Wo rk) Social History Tobacco Use Types Packs/Day Years Used Date Current Every Day Smoker Cigarettes 0.1 10 Smokeless Tobacco: Never Used Comments: 5 cigarettes a day Alcohol Use Standard Drinks/Week Comments No 0 (1 standard drink = 0.6 oz pure alcoho l) Sex Assigned at Date Recorded Female 01/14/2020 10:57 AM RNFA documented as of this encounter Miscellaneous Notes Telephone Encounter - Suyapa Rodriguez CMA - 10/27/2015 9:47 AM CDT PA approval received #[id number], good thru 11/17/15, pt starting pphp 11/18/15 Telephone Encounter - Suyapa Rodriguez CMA - 10/26/2015 2:51 PM CDT PA request sent to [facility]. documented in this encounter Plan of Treatment Upcoming Encounters Date Type Specialty Care Team Description 11/15/2021 Office Visit [facility] Luis Camara, [place] [address] [place] [address] (Wo rk) documented as of this encounter Visit Diagnoses Not on filedocumented in this encounter Care Teams Heel Shaper Relationship Specialty Start Date End Date System, Provider Not In PCP - General Clinic 08/12/14 07/13/16 documented as of this encounter
--- OUTSIDE RECORDS SUMMARY | 2021-11-10 00:46 | XMS_ITS | Encounter Summary ---
:1980 Author Organization [place] Address [address] [facility] [place] [address] Care Team Providers Name Role Phone System, Provider Not In Primary Care Provider Unavailable Reason for Visit Reason Onset Date Comments Recheck Medication Erroneous encounter-disregard 01/08/2016 Encounter Details Date Type Department Care Team Description 01/01/2016 Office Visit [facility] Edgar Alfredo ERRONEOUS Clinic Ashly Gauthier MD ENCOUNTER--DISREGARD [address] [place] (Primary Dx) [address] [place] [phone] Social History Tobacco Use Types Packs/Day Years Used Date Current Every Day Smoker Cigarettes 0.1 10 Smokeless Tobacco: Never Used Comments: 5 cigarettes a day Alcohol Use Standard Drinks/Week Comments No 0 (1 standard drink = 0.6 oz pure alcoho l) Sex Assigned at Date Recorded Female 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 Please disregard. LLER OPERATOR documented in this encounter Plan of Treatment Upcoming Encounters Date Type Specialty Care Team Description 11/15/2021 Office Visit [facility] Luis Camara DPM [address] [place] [address] (Wo rk) documented as of this encounter Visit Diagnoses Diagnosis ERRONEOUS ENCOUNTER--DISREGARD - Primary documented in this encounter Care Teams Source Inspector Relationship Specialty Start Date End Date System, Provider Not In PCP - General Clinic 08/12/14 07/13/16 documented as of this encounter
--- OUTSIDE RECORDS SUMMARY | 2021-11-10 00:46 | XMS_ITS | Encounter Summary ---
:1980 Author Organization [place] Address [address] [facility] [place] [address] Care Team Providers Name Role Phone System, Provider Not In Primary Care Provider Unavailable Reason for Visit Reason Onset Date Comments Erroneous encounter-disregard 02/12/2016 Encounter Details Date Type Department Care Team Description 02/12/2016 Office Visit [facility] Edgar Alfredo ERRONEOUS Clinic Ashly Gauthier MD ENCOUNTER--DISREGARD [address] [place] (Primary Dx) [address] [place] [phone] Social History Tobacco Use Types Packs/Day Years Used Date Current Every Day Smoker Cigarettes 0.1 10 Smokeless Tobacco: Never Used Comments: 5 cigarettes a day Alcohol Use Standard Drinks/Week Comments No 0 (1 standard drink = 0.6 oz pure alcoho l) Sex Assigned at Date Recorded Female 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 Please disregard. BREAKDOWN PROCESSOR documented in this encounter Plan of Treatment Upcoming Encounters Date Type Specialty Care Team Description 11/15/2021 Office Visit [facility] Care uLis Camara, [place] [address] [place] [address] (Wo rk) documented as of this encounter Visit Diagnoses Diagnosis ERRONEOUS ENCOUNTER--DISREGARD - Primary documented in this encounter Care Teams Plant Culture Manager Relationship Specialty Start Date End Date System, Provider Not In PCP - General Clinic 08/12/14 07/13/16 documented as of this encounter
--- OUTSIDE RECORDS SUMMARY | 2021-11-10 00:46 | XMS_ITS | Encounter Summary ---
:1980 Author Organization [place] Address [address] [facility] [place] [address] Care Team Providers Name Role Phone System, Provider Not In Primary Care Provider Unavailable Reason for Visit Reason Onset Date Comments Patient Request 09/18/2015 Bridge for Subutex Encounter Details Date Type Department Care Team Description 09/18/2015 Telephone [facility] Edgar Alfredo Pat ient Request ([facility] [place] MD for Subutex) [address] [place] [address] [place] [phone] (Wo rk) Social History Tobacco Use Types Packs/Day Years Used Date Current Every Day Smoker Cigarettes 0.1 10 Smokeless Tobacco: Never Used Comments: 5 cigarettes a day Alcohol Use Standard Drinks/Week Comments No 0 (1 standard drink = 0.6 oz pure alcoho l) Sex Assigned at Date Recorded Female 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/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 documented as of this encounter Miscellaneous Notes Addendum Note - Suyapa Murray CMA - 09/19/2015 1:44 PM CDT Addended by: SUYAPA MURRAY on: 09/19/2015 01:44 PM Modules accepted: Medications Telephone Encounter - Suyapa Murray CMA - 09/19/2015 1:43 PM CDT Rx faxed to pharm Telephone Encounter - Edgar Alfredo MD - 09/19/2015 12:48 PM CDT Should have enough until 09/21/15 4 day bridge ordered Telephone Encounter - Mark Roldan - 09/18/2015 3:32 PM CDT Reason for Call: Bridge for Subutex Detailed comments: pt need a bridge until her next appt on 09/25/15 Phone Number Patient can be reached at: Home number on file [phone] (home) Best Time: Anytime Can we leave a detailed message on this number? YES Call taken on 09/18/2015 at 3:32 PM by Mark Roldan Thank you, Mark Roldan Optician [facility] documented in this encounter Plan of Treatment Upcoming Encounters Date Type Specialty Care Team Description 11/15/2021 Office Visit Wound Care Luis Camara, [place] [address] [place] [address] (Wo rk) documented as of this encounter Visit Diagnoses Diagnosis Uncomplicated opioid dependence (H) - Pr imary Opioid type dependence, unspecified documented in this encounter Care Teams Metal Control Coordinator Relationship Specialty Start Date End Date System, Provider Not In PCP - General Clinic 08/12/14 07/13/16 documented as of this encounter
[2021-11-10 00:47] LABS: Slide Review Reflex No
--- OUTSIDE RECORDS SUMMARY | 2021-11-10 00:47 | XMS_ITS | Encounter Summary ---
:1980 Author Organization [place] Address [address] [facility] [place] [address] Care Team Providers Name Role Phone System, Provider Not In Primary Care Provider Unavailable Reason for Visit Reason Onset Date Comments Medication Request 07/19/2015 Encounter Details Date Type Department Care Team Description 07/19/2015 Telephone [facility] Edgar Alfredo, [facility] ication Request Clinic Ashly VÁSQUEZ ([phone]) [address] [place] [place] [phone] (Wo rk) Social History Tobacco Use Types Packs/Day Years Used Date Current Every Day Smoker Cigarettes 0.1 10 Smokeless Tobacco: Never Used Comments: 5 cigarettes a day Alcohol Use Standard Drinks/Week Comments No 0 (1 standard drink = 0.6 oz pure alcoho l) Sex Assigned at Date Recorded Female 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 Please follow up. Pt contact info: [phone] (Ok to leave detailed message, per pt) Thank you, Dora Merchant Manager [facility] documented in this encounter Plan of Treatment Upcoming Encounters Date Type Specialty Care Team Description 11/15/2021 Office Visit Wound Care Luis Camara, [place] [address] [place] [address] (Wo rk) documented as of this encounter Visit Diagnoses Diagnosis Uncomplicated opioid dependence (H) - Pr imary Opioid type dependence, unspecified documented in this encounter Care Teams Roll On Man Relationship Specialty Start Date End Date System, Provider Not In PCP - General Clinic 08/12/14 07/13/16 documented as of this encounter
--- OUTSIDE RECORDS SUMMARY | 2021-11-10 00:47 | XMS_ITS | Encounter Summary ---
:1980 Author Organization [place] Address [address] [facility] [place] [address] Care Team Providers Name Role Phone System, Provider Not In Primary Care Provider Unavailable Reason for Visit Reason Comments Recheck Medication Encounter Details Date Type Department Care Team Description 11/24/2014 Office Visit [facility] Edgar Alfredo Uncomplic ated opioid Clinic Ashly Gauthier MD dependence (H) (Primary [address] Dx) [address] [place] [phone] Social History Tobacco Use Types Packs/Day Years Used Date Current Every Day Smoker Cigarettes 0.1 10 Smokeless Tobacco: Never Used Comments: 5 cigarettes a day Alcohol Use Standard Drinks/Week Comments No 0 (1 standard drink = 0.6 oz pure alcoho l) Sex Assigned at Date Recorded Female 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 documented as of this encounter Last Filed Vital Signs Vital Sign Reading Time Taken Comments Blood Pressure 113/81 11/24/2014 3:19 PM CDT Pulse 98 11/24/2014 3:19 PM CDT Temperature - - Respiratory Rate - - Oxygen Saturation - - Inhaled Oxygen Concentration - - Weight - - Height - - Body Mass Index - - documented in this encounter Progress Notes Edgar Alfredo MD - 11/25/2014 12:23 PM CDT SUBJECTIVE: Stephani Parker is a 34 year old female who presents to clinic today for the following health issues: Suboxone followup DOING OK HERE EARLY SHE HAS SO MANY APPOINTMENTS NEXT WEEK NEARING DATE OF DELIVERY INFANT WILL NEED SURGERY SOON AFTER NO WITHDRAWAL BUT FEELS SHE WOULD IF SUBOXONE DOSE DECREASED Status since last visit: Since last visit patient has been: stable. Intensity: ?? There has been: no craving. ?? Suboxone Dose: adequate. Progression of Symptoms: ?? Cues to use and relapse triggers: NONE ?? Recovery program has been: ignored. Accompanying Signs & Symptoms: ?? Side Effects: none. Sobriety: ?? Status: no use since last visit. ?? Drug Screen: obtained. Precipitating factors: ?? Triggers have been: non-existent. Alleviating factors: ?? Contact with sponsor has been: no sponsor. ?? Family and support system has been: helpful. Other Therapies Tried : ?? Patient has been going to recovery meetings:not at all. ?? Problem list and histories reviewed & adjusted, as indicated. Additional history: as documented Patient Active Problem List Diagnosis ??? Opiate dependence ??? CARDIOVASCULAR SCREENING; LDL GOAL LESS THAN 160 ??? complicated by chemical dependency, antepartum ??? Anxiety ??? Moderate major depression No past surgical history on file. History [...] Medication Sig Dispense Refill ??? buprenorphine (SUBUTEX) 8 MG SUBL Take 0.5 tab 3 times daily 42 tablet 0 ??? Ferrous Sulfate (IRON) 325 (65 FE) MG tablet Take 1 tablet by mouth 2 times daily ??? DiphenhydrAMINE HCl (BENADRYL ALLERGY PO) Take by mouth as needed ??? OMEPRAZOLE PO Take by mouth daily ??? Venlafaxine HCl (EFFEXOR PO) Take by mouth 3 times daily ??? levothyroxine (SYNTHROID, LEVOTHROID) 125 MCG tablet Take 1 tablet by mouth daily ??? Qelwgnur-Gxi-Bi-FA ( VITAMINS) 0.8 MG TABS Take 1 tablet by mouth daily 30 tablet 6 ??? WELLBUTRIN SR 150 MG 12 hr tablet Take 1 tablet (150 mg) by mouth 2 times daily 60 tablet 5 ??? Cholecalciferol (VITAMIN D) 2000 UNITS tablet Take 2,000 Units by mouth daily. 100 tablet 3 ??? [DISCONTINUED] VITAMINS PO Take by mouth. No Known Allergies Problem list, Medication list, Allergies, and Medical/Social/Surgical histories reviewed in [facility] andupdated as appropriate. OBJECTIVE: BP 113/81 mmHg Pulse 98 There is no weight on file to calculate BMI. ROS: Constitutional, HEENT, cardiovascular, pulmonary, gi and gu systems are negative, except as otherwise noted. BP 113/81 mmHg Pulse 98 EXAM: GENERAL APPEARANCE: healthy, alert and no distress EYES: Eyes grossly normal to inspection, PERRL and conjunctivae and sclerae normal NEURO: Normal strength and tone, mentation intact and speech normal PSYCH: mentation appears normal and affect normal/bright MENTAL STATUS EXAM: Appearance/Behavior: No apparent distress Speech: Normal Mood/Affect: normal affect Insight: Adequate Diagnostic Test Results: Results for orders placed or performed in visit on 11/24/14 (from the past 24 hour(s)) Drug abuse [...] Buprenorphine Qual Urine Positive ASSESSMENT: OPIOID DEPENDENCE PLAN: ICD-10-CM 1. Uncomplicated opioid dependence F11.20 buprenorphine (SUBUTEX) 8 MG SUBL 2. Opiate dependence F11.20 Drug abuse screen (NL, RW) Buprenorphine Qual Urine MEDICATIONS: Orders Placed This Encounter Medications ??? buprenorphine (SUBUTEX) 8 MG SUBL Sig: Take 0.5 tab 3 times daily Dispense: 42 tablet Refill: 0 - Continue other medications without change - RE-CHECK 1 MONTH} Edgar Alfredo MD, MD [facility] documented in this encounter Nursing Notes Suyapa Rodriguez CMA - 11/24/2014 3:19 PM CDT Chief Complaint Patient presents with ??? Recheck Medication Initial BP 113/81 mmHg Pulse 98 Estimated body mass index is 30.96 kg/(m^2) as calculated from thefollowing: Height as of 13: 5' 5.5 (1.664 m). Weight as of 07/28/14: 189 lb (85.73 kg). BP completed using cuff size: catalino Rodriguez MLT, CMA documented in this encounter Plan of Treatment Upcoming Encounters Date Type Specialty Care Team Description 11/15/2021 Office Visit Wound Care Luis Camara DPM [address] [place] [address] (Wo rk) documented as of this encounter Procedures Procedure Name Priority Date/Time Associated Diagnosis Comme nts BUPRENORPHINE QUAL Routine 11/24/2014 3:10 Uncomplicated opioi d Results for this URINE PM CDT dependence (H) procedure are in the results section. DRUG ABUSE SCREEN Routine 11/24/2014 3:10 Uncomplicated opioid Results for this (NL, RW) PM CDT dependence (H) procedure are in the results section. documented in this encounter Results Buprenorphine Qual Urine (11/24/2014 3:10 PM CDT) Patholo gist Method Time Signature Buprenorphine Positive [facility] Qual Urine Specimen Anatomical Collection Method Collection Time Receive d Time (Source) Location / / Volume Laterality Urine specimen 11/24/2014 3:10 PM 015 3:15 (specimen) CDT PM CDT Edgar Alfredo MD LAB - URINE ORDERABLES Performing Organization Address City/[facility] [place] [address] [facility] Building [address] [facility] Drug abuse screen (NL, RW) (11/24/2014 3:10 PM CDT) Component Value Ref Test Analysis [...] Location / / Volume Laterality Urine specimen 11/24/2014 3:10 PM 015 3:15 (specimen) CDT PM CDT Edgar Alfredo MD LAB - URINE ORDERABLES Performing Organization Address City/State/[place] [address] [facility] Building [address] [facility] documented in this encounter Visit Diagnoses Diagnosis Uncomplicated opioid dependence (H) - Pr imary Opioid type dependence, unspecified documented in this encounter Care Teams Lacquer Shader Relationship Specialty Start Date End Date System, Provider Not In PCP - General Clinic 08/12/14 07/13/16 documented as of this encounter
--- OUTSIDE RECORDS SUMMARY | 2021-11-10 00:47 | XMS_ITS | Encounter Summary ---
:1980 Author Organization [place] Address [address] [facility] [place] [address] Care Team Providers Name Role Phone System, Provider Not In Primary Care Provider Unavailable Reason for Visit Reason Comments Recheck Medication Encounter Details Date Type Department Care Team Description 06/22/2015 Office Visit [facility] Edgar Alfredo Uncomplic ated opioid Clinic Ashly Gauthier MD dependence (H) (Primary [address]) [address] [place] [phone] Social History Tobacco Use Types Packs/Day Years Used Date Current Every Day Smoker Cigarettes 0.1 10 Smokeless Tobacco: Never Used Comments: 5 cigarettes a day Alcohol Use Standard Drinks/Week Comments No 0 (1 standard drink = 0.6 oz pure alcoho l) Sex Assigned at Date Recorded Female 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 documented as of this encounter Last Filed Vital Signs Vital Sign Reading Time Taken Comments Blood Pressure 132/79 06/22/2015 3:04 PM CDT Pulse 88 06/22/2015 3:04 PM CDT Temperature - - Respiratory Rate - - Oxygen Saturation - - Inhaled Oxygen Concentration - - Weight - - Height - - Body Mass Index - - documented in this encounter Progress Notes Edgar Alfredo MD - 06/23/2015 11:06 AM CDT SUBJECTIVE: Stephani Parker is a 34 year old female who presents to clinic today for the following health issues: Suboxone followup DOING OK STILL GRIEVING LOSS OF CHILD GOT SINCE LAST VISIT STRESSFUL HOME SITUATION; NEEDS WORK BUSY WITH KIDS STILL PICKS AT SKIN PREFERS SUBUTEX BUT MAY NOT BE COVERED Status since last visit: Since last visit patient has been: stable. Intensity: ?? There has been: no craving. ?? Suboxone Dose: adequate. Progression of Symptoms: ?? Cues to use and relapse TRIGGERS: MILD ?? Recovery program has been: ignored. Accompanying Signs & Symptoms: ?? Side Effects: none. SUBOXONE MAY GIVE HER NIGHTMARES? Sobriety: ?? Status: no use since last visit. \ ?? Drug Screen: obtained. Precipitating factors: ?? [...] 160 ??? Anxiety ??? Moderate major depression (HCC) ??? Uncomplicated opioid dependence (HCC) No past surgical history on file. History [...] Take 1 tablet by mouth daily ??? Fnczdtmb-Nzg-Gu-FA ( VITAMINS) 0.8 MG TABS Take 1 tablet by mouth daily 30 tablet 6 ??? buprenorphine HCl-naloxone HCl (SUBOXONE) 8-2 MG film Take 1.5 strips daily 45 Film 0 ??? [DISCONTINUED] VITAMINS PO Take by mouth. ??? Cholecalciferol (VITAMIN D) 2000 UNITS tablet Take 2,000 Units by mouth daily. 100 tablet 3 No Known Allergies Problem list, Medication list, Allergies, and Medical/Social/Surgical histories reviewed in [facility] andupdated as appropriate. ROS: OBJECTIVE: BP 132/79 mmHg Pulse 88 There is no weight on file to calculate BMI. ROS: Constitutional, HEENT, cardiovascular, pulmonary, gi and gu systems are negative, except as otherwise noted. BP 132/79 mmHg Pulse 88 EXAM: GENERAL APPEARANCE: healthy, alert and no [...] orders placed or performed in visit on 06/22/15 (from the past 24 hour(s)) Drug abuse [...] UNCOMPLICATED PLAN: ICD-10-CM 1. Uncomplicated opioid dependence (HCC) F11.20 buprenorphine HCl-naloxone HCl (SUBOXONE) 8-2 MG film 2. Opiate dependence (HCC) F11.20 Drug abuse screen (NL, RW) Buprenorphine Qual Urine MEDICATIONS: Orders Placed This Encounter Medications ??? buprenorphine HCl-naloxone HCl (SUBOXONE) 8-2 MG film Sig: Take 1.5 strips daily Dispense: 45 Film Refill: 0 - Continue other medications without change FUTURE APPOINTMENTS: - Follow-up visit in 1 MONTH Edgar Alfredo MD [facility] documented in this encounter Nursing Notes Suyapa Rodriguez CMA - 06/22/2015 3:24 PM CDT Chief Complaint Patient presents with ??? Recheck Medication Initial BP 132/79 mmHg Pulse 88 Estimated body mass index is 30.96 kg/(m^2) as calculated from thefollowing: Height as of 13: 5' 5.5 (1.664 m). Weight as of 07/28/14: 189 lb (85.73 kg). BP completed using cuff size: large Suyapa Rodriguez MLT, CMA documented in this encounter Plan of Treatment Upcoming Encounters Date Type Specialty Care Team Description 11/15/2021 Office Visit Wound Care Luis Camara DPM [address] [place] [phone] (Wo rk) documented as of this encounter Procedures Procedure Name Priority Date/Time Associated Diagnosis Comme nts BUPRENORPHINE QUAL Routine 06/22/2015 2:50 Uncomplicated opioi d Results for this URINE PM CDT dependence (H) procedure are in the results section. DRUG ABUSE SCREEN Routine 06/22/2015 2:50 Uncomplicated opioid Results for this (NL, RW) PM CDT dependence (H) procedure are in the results section. documented in this encounter Results Buprenorphine Qual Urine (06/22/2015 2:50 PM CDT) Patholo gist Method Time Signature Buprenorphine Positive RJ LAB Qual Urine Specimen Anatomical Collection Method Collection Time Receive d Time (Source) Location / / Volume Laterality Urine specimen 06/22/2015 2:50 PM 016 2:55 (specimen) CDT PM CDT Edgar Alfredo MD LAB - URINE ORDERABLES Performing Organization Address City/State/[place] [address] [facility] Building [address] LAB Drug abuse screen (NL, RW) (06/22/2015 2:50 PM CDT) Component Value Ref Test Analysis [...] 300 ng/mL or less. Benzodiazepine Negative NEG LAB Qual Urine Cutoff for [...] Location / / Volume Laterality Urine specimen 06/22/2015 2:50 PM 016 2:55 (specimen) CDT PM CDT Edgar Alfredo MD LAB - URINE ORDERABLES Performing Organization Address City/State/[facility] [place] [address] [facility] Building [address] [facility] LAB documented in this encounter Visit Diagnoses Diagnosis Uncomplicated opioid dependence (H) - Pr imary Opioid type dependence, unspecified documented in this encounter Care Teams Voltage Regulator Assembler Relationship Specialty Start Date End Date System, Provider Not In PCP - General Clinic 08/12/14 07/13/16 documented as of this encounter
--- OUTSIDE RECORDS SUMMARY | 2021-11-10 00:47 | XMS_ITS | Encounter Summary ---
:1980 Author Organization [place] Address [address] [facility] [address] [place] [address] Care Team Providers Name Role Phone System, Provider Not In Primary Care Provider Unavailable Reason for Visit Reason Onset Date Comments Refill Request 06/12/2015 Jennifer needed for giraldo bx Encounter Details Date Type Department Care Team Description 06/12/2015 Telephone [facility] Edgar Alfredo, Ref ill Request ([facility] needed for subx ) [address] [place] [phone] (Wo rk) Social History Tobacco Use Types Packs/Day Years Used Date Current Every Day Smoker Cigarettes 0.1 10 Smokeless Tobacco: Never Used Comments: 5 cigarettes a day Alcohol Use Standard Drinks/Week Comments No 0 (1 standard drink = 0.6 oz pure alcoho l) Sex Assigned at Date Recorded Female 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 Pt was unaware her appt was today, and is wondering if Dr Alfredo can squeeze her in tomorrow 06/12. She has an appt scheduled on 06/22/15. Please follow up. Pt contact info: [phone] Thank you, Dora Merchant [facility] documented in this encounter Plan of Treatment Upcoming Encounters Date Type Specialty Care Team Description 11/15/2021 Office Visit Wound Care Luis Camara, [place] [address] [place] [address] (Wo rk) documented as of this encounter Visit Diagnoses Diagnosis Uncomplicated opioid dependence (H) - Pr imary Opioid type dependence, unspecified documented in this encounter Care Teams Ivory Carver Relationship Specialty Start Date End Date System, Provider Not In PCP - General Clinic 08/12/14 07/13/16 documented as of this encounter
--- OUTSIDE RECORDS SUMMARY | 2021-11-10 00:47 | XMS_ITS | Encounter Summary ---
:1980 Author Organization [place] Address [address] [place] [address] Care Team Providers Name Role Phone System, Provider Not In Primary Care Provider Unavailable Reason for Visit Reason Onset Date Comments Transfer Note 10/10/2014 Encounter Details Date Type Department Care Team Description 10/10/2014 Telephone [facility] Maternal Sintia Rasheed, Transfer Note Medicine [facility] RN De Berry [address] [place], [place] [address], [place] [address] Social History Tobacco Use Types Packs/Day Years Used Date Current Every Day Smoker Cigarettes 0.1 10 Smokeless Tobacco: Never Used Comments: 5 cigarettes a day Alcohol Use Standard Drinks/Week Comments No 0 (1 standard drink = 0.6 oz pure alcoho l) Sex Assigned at Date Recorded Female 01/14/2020 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, verified [facility] received these records. Syeda, Academy Education Director, will contact patient to schedule upcoming appts with [facility]. documented in this encounter Plan of Treatment Upcoming Encounters Date Type Specialty Care Team Description 11/15/2021 Office Visit Wound Care Luis Camara, [place] [address] [place] [address] (Wo rk) documented as of this encounter Visit Diagnoses Not on filedocumented in this encounter Care Teams Alumina Refinery Operator Relationship Specialty Start Date End Date System, Provider Not In PCP - General Clinic 08/12/14 07/13/16 documented as of this encounter
--- OUTSIDE RECORDS SUMMARY | 2021-11-10 00:47 | XMS_ITS | Encounter Summary ---
:1980 Author Organization [place] Address [address] [place] [address] Care Team Providers Name Role Phone System, Provider Not In Primary Care Provider Unavailable Encounter Details Date Type Department Care Team Description 04/24/2015 Telephone [facility] Nithya Alfredo MD [place] [address] [place] [address] [place], [place] [address] [phone] [place] [phone] Social History Tobacco Use Types Packs/Day Years Used Date Current Every Day Smoker Cigarettes 0.1 10 Smokeless Tobacco: Never Used Comments: 5 cigarettes a day Alcohol Use Standard Drinks/Week Comments No 0 (1 standard drink = 0.6 oz pure alcoho l) Sex Assigned at Date Recorded Female 01/14/2020 10:57 AM LATIN AMERICAN STUDIES PROFESSOR documented as of this encounter Miscellaneous Notes Addendum Note - Suyapa Murray CMA - 04/24/2015 1:41 PM LATIN AMERICAN STUDIES PROFESSOR Addended by: SUYAPA MURRAY on: 04/24/2015 01:41 PM Modules accepted: Medications N AMERICAN STUDIES PROFESSOR Telephone Encounter - Edgar Alfredo MD - 04/24/2015 12:31 PM CST Bridge ordered N AMERICAN STUDIES PROFESSOR Telephone Encounter - Vivian Spence CMA - 04/24/2015 12:19 PM CST Incoming call from pt requesting a bridge in Subutex pt scheduled 04/30 please send refill to [address] Sp[address] [facility] Signal Fitter .3s N AMERICAN STUDIES PROFESSOR documented in this encounter Plan of Treatment Upcoming Encounters Date Type Specialty Care Team Description 11/15/2021 Office Visit Wound Care Luis Camara DPM [address] [place] [address] (Wo rk) documented as of this encounter Visit Diagnoses Diagnosis Uncomplicated opioid dependence (H) - Pr imary Opioid type dependence, unspecified documented in this encounter Care Teams Industrial Furnace Fabricator Relationship Specialty Start Date End Date System, Provider Not In PCP - General Clinic 08/12/14 07/13/16 documented as of this encounter
--- OUTSIDE RECORDS SUMMARY | 2021-11-10 00:47 | XMS_ITS | Encounter Summary ---
:1980 Author Organization [place] Address [address] [facility] [place] [address] Care Team Providers Name Role Phone System, Provider Not In Primary Care Provider Unavailable Reason for Visit Reason Comments Recheck Medication Encounter Details Date Type Department Care Team Description 03/28/2015 Office Visit [facility] Edgar Alfredo Uncomplic ated opioid Clinic Ashly Gauthier MD dependence (H) (Primary [address]x) [address] [place] [phone] Social History Tobacco Use Types Packs/Day Years Used Date Current Every Day Smoker Cigarettes 0.1 10 Smokeless Tobacco: Never Used Comments: 5 cigarettes a day Alcohol Use Standard Drinks/Week Comments No 0 (1 standard drink = 0.6 oz pure alcoho l) Sex Assigned at Date Recorded Female 01/14/2020 10:57 AM TIERCE FILLER documented as of this encounter Last Filed Vital Signs Vital Sign Reading Time Taken Comments Blood Pressure 122/66 03/28/2015 11:23 AM TIERCE FILLER Pulse 87 03/28/2015 11:23 AM TIERCE FILLER Temperature - - Respiratory Rate - - Oxygen Saturation - - Inhaled Oxygen Concentration - - Weight - - Height - - Body Mass Index - - documented in this encounter Progress Notes Edgar Alfredo MD - 03/31/2015 9:12 PM CST SUBJECTIVE: Stephani Parker is a 34 year old female who presents to clinic today for the following health issues: Suboxone followup LITTLE CHANGE BUSY WITH CHILDREN DOING OK SUBOXONE NEGATIVE IN URINE; HAS HAPPENED BEFORE; DOES NOT SEEM SUSPICIOUS WILL CONTINUE SAME DOSE SUBOXONE Status since last visit: Since last visit patient has been: stable. Intensity: ?? There has been: no craving. ?? Suboxone Dose: adequate. Progression of Symptoms: ?? Cues to use and relapse triggers: MILD ?? Recovery program has been: ignored. [...] 160 ??? Anxiety ??? Moderate major depression ??? Uncomplicated opioid dependence (HCC) No past [...] Take 0.5 tab 3 times daily 42 each 0 ??? WELLBUTRIN SR 150 MG 12 hr tablet Take 1 tablet (150 mg) by mouth 2 times daily 60 tablet 1 ??? Ferrous Sulfate (IRON) 325 (65 FE) MG tablet Take 1 tablet by mouth 2 times daily ??? DiphenhydrAMINE HCl (BENADRYL ALLERGY PO) Take by mouth as needed ??? OMEPRAZOLE PO Take by mouth daily ??? Venlafaxine HCl (EFFEXOR PO) Take by mouth 3 times daily ??? levothyroxine (SYNTHROID, LEVOTHROID) 125 MCG tablet Take 1 tablet by mouth daily ??? Vzkaluzq-Smh-An-FA ( VITAMINS) 0.8 MG TABS Take 1 tablet by mouth daily 30 tablet 6 ??? Cholecalciferol (VITAMIN D) 2000 UNITS tablet Take 2,000 Units by mouth daily. 100 tablet 3 ??? [DISCONTINUED] VITAMINS PO Take by mouth. No Known Allergies Problem list, Medication list, Allergies, and Medical/Social/Surgical histories reviewed in [facility] andupdated as appropriate. ROS: OBJECTIVE: BP 122/66 mmHg Pulse 87 There is no weight on file to calculate BMI. ROS: Constitutional, HEENT, cardiovascular, pulmonary, gi and gu systems are negative, except as otherwise noted. BP 122/66 mmHg Pulse 87 EXAM: GENERAL APPEARANCE: healthy, [...] orders placed or performed in visit on 03/28/15 Drug abuse screen (NL, RW) Result Value [...] Range Buprenorphine Qual Urine Negative ASSESSMENT: OPIOID DEPENDENCE , UNCOMPLICATED PLAN: ICD-10-CM 1. Uncomplicated opioid dependence (HCC) F11.20 buprenorphine (SUBUTEX) 8 MG SUBL 2. Opiate dependence (HCC) F11.20 Drug abuse screen (NL, RW) Buprenorphine Qual Urine MEDICATIONS: Orders Placed This Encounter Medications ??? buprenorphine (SUBUTEX) 8 MG SUBL Sig: Take 0.5 tab 3 times daily Dispense: 42 each Refill: 0 - Continue other medications without change FUTURE APPOINTMENTS: - Follow-up visit in 1 MONTH Edgar Alfredo MD [facility] CE FILLER documented in this encounter Nursing Notes Suyapa Rodriguez CMA - 03/28/2015 11:23 AM CST Chief Complaint Patient presents with ??? Recheck Medication Initial BP 122/66 mmHg Pulse 87 Estimated body mass index is 30.96 kg/(m^2) as calculated from thefollowing: Height as of 13: 5' 5.5 (1.664 m). Weight as of 07/28/14: 189 lb (85.73 kg). BP completed using cuff size: large Suyapa Rodriguez MLT, CMA CE FILLER documented in this encounter Plan of Treatment Upcoming Encounters Date Type Specialty Care Team Description 11/15/2021 Office Visit Wound Care Luis Camara DPM [address] [place], [place] [phone] (Wo rk) documented as of this encounter Procedures Procedure Name Priority Date/Time Associated Comments Diagnosis BUPRENORPHINE QUAL Routine 03/28/2015 11:04 Resul ts for this URINE AM TIERCE FILLER procedure are i n the results section. DRUG ABUSE SCREEN (NL, Routine 03/28/2015 11:04 R esults for this RW) AM TIERCE FILLER procedure are i n the results section. documented in this encounter Results Buprenorphine Qual Urine (03/28/2015 11:04 AM TIERCE FILLER) Patholo gist Method Time Signature Buprenorphine Negative RJ LAB Qual Urine Specimen Anatomical Collection Method Collection Time Receive d Time (Source) Location / / Volume Laterality Urine specimen 03/28/2015 11:04 6 (specimen) AM TIERCE FILLER 11:09 AM TIERCE FILLER Edgar Alfredo MD LAB - URINE ORDERABLES Performing Organization Address City/[facility]/[place] [address] [facility] [address] RJ LAB Drug abuse screen (NL, RW) (03/28/2015 11:04 AM TIERCE FILLER) Component Value Ref Test Analysis Performed Pathologis [...] Location / / Volume Laterality Urine specimen 03/28/2015 11:04 6 (specimen) AM TIERCE FILLER 11:09 AM TIERCE FILLER Edgar Alfredo MD LAB - URINE ORDERABLES Performing Organization Address City/[facility] [place] [address] [facility] [address] [facility] LAB documented in this encounter Visit Diagnoses Diagnosis Uncomplicated opioid dependence (H) - Pr imary Opioid type dependence, unspecified documented in this encounter Care Teams Waterway Traffic Checker Relationship Specialty Start Date End Date System, Provider Not In PCP - General Clinic 08/12/14 07/13/16 documented as of this encounter
--- OUTSIDE RECORDS SUMMARY | 2021-11-10 00:47 | XMS_ITS | Encounter Summary ---
:1980 Author Organization [place] Address [address] [facility] [place] [address] Care Team Providers Name Role Phone System, Provider Not In Primary Care Provider Unavailable Reason for Visit Reason Onset Date Comments Prior Auth - Medication 05/17/2015 subutex 8 mg Encounter Details Date Type Department Care Team Description 05/17/[address] [facility] Edgar Alfredo Pri or Auth - Medication Clinic Ashly VÁSQUEZ (subutex 8 mg) [address] [place] [address] [place] [phone] (Wo rk) Social History Tobacco Use Types Packs/Day Years Used Date Current Every Day Smoker Cigarettes 0.1 10 Smokeless Tobacco: Never Used Comments: 5 cigarettes a day Alcohol Use Standard Drinks/Week Comments No 0 (1 standard drink = 0.6 oz pure alcoho l) Sex Assigned at Date Recorded Female 01/14/2020 10:57 AM HAUL DRIVER documented as of this encounter Miscellaneous Notes Telephone Encounter - Suyapa Rodriguez CMA - 05/18/2015 5:25 PM CDT [facility] for suboxone approved #[id number], [facility] thru 11/17/15. Faxed to pharmacy. Telephone Encounter - Edgar Alfredo MD - 05/18/2015 1:54 PM CDT Suboxone ordered Telephone Encounter - Suyapa Rodriguez CMA - 05/18/2015 10:16 AM CDT [employer] denied PA, says they cover extended use of subutex for patients only. Nursing doesn't count. So unless she has a problem with naloxone I don't see in her chart, the med needs to be changed. Telephone Encounter - Suyapa Rodriguez CMA - 05/17/2015 1:48 PM CDT PA request faxed to [facility], marked URGENT. documented in this encounter Plan of Treatment Upcoming Encounters Date Type Specialty Care Team Description 11/15/2021 Office Visit Wound Care Luis Camara, [place] [address] [place] [phone] (Wo rk) documented as of this encounter Visit Diagnoses Diagnosis Uncomplicated opioid dependence (H) - Pr imary Opioid type dependence, unspecified documented in this encounter Care Teams Tie Binder Relationship Specialty Start Date End Date System, Provider Not In PCP - General Clinic 08/12/14 07/13/16 documented as of this encounter
--- OUTSIDE RECORDS SUMMARY | 2021-11-10 00:47 | XMS_ITS | Encounter Summary ---
:1980 Author Organization [place] Address [address] [facility] [place] [address] Care Team Providers Name Role Phone System, Provider Not In Primary Care Provider Unavailable Reason for Visit Reason Onset Date Comments Recheck Medication Erroneous encounter-disregard 05/07/2015 Encounter Details Date Type Department Care Team Description 05/02/2015 Office Visit [facility] Edgar Alfredo ERRONEOUS Clinic Ashly Gauthier MD ENCOUNTER--DISREGARD [address] [place] (Primary Dx) [address] [place] [phone] Social History Tobacco Use Types Packs/Day Years Used Date Current Every Day Smoker Cigarettes 0.1 10 Smokeless Tobacco: Never Used Comments: 5 cigarettes a day Alcohol Use Standard Drinks/Week Comments No 0 (1 standard drink = 0.6 oz pure alcoho l) Sex Assigned at Date Recorded Female 01/14/2020 10:57 AM FIREWORKS ASSEMBLY SUPERVISOR documented as of this encounter Progress Notes Edgar Alfredo MD - 05/07/2015 10:42 AM CDT This encounter was opened in error. Please disregard. documented in this encounter Plan of Treatment Upcoming Encounters Date Type Specialty Care Team Description 11/15/2021 Office Visit Wound Care Luis Camara, [place] [address] [place] [address] (Wo rk) documented as of this encounter Visit Diagnoses Diagnosis ERRONEOUS ENCOUNTER--DISREGARD - Primary documented in this encounter Care Teams Marketing Operations Assistant Relationship Specialty Start Date End Date System, Provider Not In PCP - General Clinic 08/12/14 07/13/16 documented as of this encounter
--- OUTSIDE RECORDS SUMMARY | 2021-11-10 00:47 | XMS_ITS | Encounter Summary ---
:1980 Author Organization [place] Address [address] [facility] [place] [address] Care Team Providers Name Role Phone System, Provider Not In Primary Care Provider Unavailable Reason for Visit Reason Comments Recheck Medication Encounter Details Date Type Department Care Team Description 12/26/2014 Office Visit [facility] Edgar Alfredoplic ated opioid Clinic Ashly Gauthier MD dependence (H) (Primary [address] Dx) [address] [place] [address] [phone] Social History Tobacco Use Types Packs/Day Years Used Date Current Every Day Smoker Cigarettes 0.1 10 Smokeless Tobacco: Never Used Comments: 5 cigarettes a day Alcohol Use Standard Drinks/Week Comments No 0 (1 standard drink = 0.6 oz pure alcoho l) Sex Assigned at Date Recorded Female 01/14/2020 10:57 AM TRANSPORT ANALYST documented as of this encounter Last Filed Vital Signs Vital Sign Reading Time Taken Comments Blood Pressure 124/73 12/26/2014 11:19 AM TRANSPORT ANALYST Pulse 94 12/26/2014 11:19 AM TRANSPORT ANALYST Temperature - - Respiratory Rate - - Oxygen Saturation - - Inhaled Oxygen Concentration - - Weight - - Height - - Body Mass Index - - documented in this encounter Progress Notes Edgar Alfredo MD - 12/26/2014 5:14 PM CST SUBJECTIVE: Stephani Parker is a 34 year old female who presents to clinic today for the following health issues: Suboxone followup HER IS STILL AT [facility] HE[facility] ISSUES, OTHER PROBLEMS DAMAGE FROM ANOXIA? STRESSFUL FOR STEPHANI NOT SURE WHY SUBOXONE WAS ABSENT; LAST TOOK IT YESTERDAY BUT NOT TODAY AND FEELS WITHDRAWAL NOT SUSPICIOUS FOR DIVERSION IF NEGATIVE SUBOXONE NEXT MONTH WILL REPEAT UA WILL REFILL TODAY AT [facility] Status since last visit: Since last visit patient has been: struggling. Intensity: ?? There has been: no craving. ?? Suboxone Dose: adequate. Progression of Symptoms: ?? Cues to use and relapse triggers: MINIMAL ?? Recovery program has been: ignored. Accompanying [...] going to recovery meetings:not at all. ?? Additional history: as documented Patient Active Problem [...] Take 1 tablet by mouth daily ??? Gywbaigi-Sou-Wu-FA ( VITAMINS) 0.8 MG TABS Take 1 [...] list, Allergies, and Medical/Social/Surgical histories reviewed in [facility] andupdated as appropriate. ROS: OBJECTIVE: BP 124/73 mmHg Pulse 94 There is no weight on file to calculate BMI. ROS: Constitutional, HEENT, cardiovascular, pulmonary, gi and gu systems are negative, except as otherwise noted. BP 124/73 mmHg Pulse 94 EXAM: GENERAL APPEARANCE: healthy, alert and no [...] orders placed or performed in visit on 12/26/14 (from the past 24 hour(s)) Drug abuse [...] Qual Urine Negative ASSESSMENT: OPIOID DEPENDENCE, UNCOMPLICATED POST- PLAN: ICD-10-CM 1. Uncomplicated opioid dependence (HCC) [...] Follow-up visit in 1 MONTH Edgar Alfredo MD, MD [facility] SPORT ANALYST documented in this encounter Nursing Notes Suyapa Rodriguez CMA - 12/26/2014 11:19 AM CST Chief Complaint Patient presents with ??? Recheck Medication Initial BP 124/73 mmHg Pulse 94 Estimated body mass index is 30.96 kg/(m^2) as calculated from thefollowing: Height as of 13: 5' 5.5 (1.664 m). Weight as of 07/28/14: 189 lb (85.73 kg). BP completed using cuff size: catalino Rodriguez MLT, CMA SPORT ANALYST documented in this encounter Plan of Treatment Upcoming Encounters Date Type Specialty Care Team Description 11/15/2021 Office Visit Wound Care Luis Camara DPM [address] [place] [id number] (Wo rk) documented as of this encounter Procedures Procedure Name Priority Date/Time Associated Diagnosis Comme nts BUPRENORPHINE QUAL Routine 12/26/2014 11:11 Uncomplicated opio id Results for this URINE AM TRANSPORT ANALYST dependence (H) procedure are in the results section. DRUG ABUSE SCREEN Routine 12/26/2014 11:11 Uncomplicated opioi d Results for this (NL, RW) AM TRANSPORT ANALYST dependence (H) procedure are in the results section. documented in this encounter Results Buprenorphine Qual Urine (12/26/2014 11:11 AM TRANSPORT ANALYST) Patholo gist Method Time Signature Buprenorphine Negative [facility] Qual Urine Specimen Anatomical Collection Method Collection Time Receive d Time (Source) Location / / Volume Laterality Urine specimen 12/26/2014 11:11 5 (specimen) AM TRANSPORT ANALYST 11:16 AM TRANSPORT ANALYST Edgar Alfredo MD LAB - URINE ORDERABLES Performing Organization Address City/State/[place] [address] [facility] Building [address] [facility] Drug abuse screen (NL, RW) (12/26/2014 11:11 AM TRANSPORT ANALYST) Component Value Ref Test Analysis Performed Pathologis [...] Location / / Volume Laterality Urine specimen 12/26/2014 11:11 5 (specimen) AM TRANSPORT ANALYST 11:16 AM TRANSPORT ANALYST Edgar Alfredo MD LAB - URINE ORDERABLES Performing Organization Address City/State/[place] [address] [facility] [address] [facility] [address] LAB documented in this encounter Visit Diagnoses Diagnosis Uncomplicated opioid dependence (H) - Pr imary Opioid type dependence, unspecified documented in this encounter Care Teams Senior Engineering Manager Relationship Specialty Start Date End Date System, Provider Not In PCP - General Clinic 08/12/14 07/13/16 documented as of this encounter
--- OUTSIDE RECORDS SUMMARY | 2021-11-10 00:47 | XMS_ITS | Encounter Summary ---
:1980 Author Organization [place] Address [address] [facility] [place] [address] Care Team Providers Name Role Phone System, Provider Not In Primary Care Provider Unavailable Reason for Visit Reason Onset Date Comments Erroneous encounter-disregard 07/21/2015 Encounter Details Date Type Department Care Team Description 07/21/2015 Telephone [facility] encounter-disregard [address] [place] [phone] (Wo rk) Social History Tobacco Use Types Packs/Day Years Used Date Current Every Day Smoker Cigarettes 0.1 10 Smokeless Tobacco: Never Used Comments: 5 cigarettes a day Alcohol Use Standard Drinks/Week Comments No 0 (1 standard drink = 0.6 oz pure alcoho l) Sex Assigned at Date Recorded Female 01/14/2020 10:57 AM SPECIAL EFFECTS ARTIST documented as of this encounter Miscellaneous Notes Telephone Encounter - Suyapa Rodriguez CMA - 07/21/2015 11:02 AM CDT ! documented in this encounter Plan of Treatment Upcoming Encounters Date Type Specialty Care Team Description 11/15/2021 Office Visit Wound Care Luis Camara, [place] [address] [place] [address] (Wo rk) documented as of this encounter Visit Diagnoses Not on filedocumented in this encounter Care Teams Digital Asset Coordinator Relationship Specialty Start Date End Date System, Provider Not In PCP - General Clinic 08/12/14 07/13/16 documented as of this encounter
--- OUTSIDE RECORDS SUMMARY | 2021-11-10 00:47 | XMS_ITS | Encounter Summary ---
:1980 Author Organization [place] Address [address] [facility] [place] [address] Care Team Providers Name Role Phone System, Provider Not In Primary Care Provider Unavailable Reason for Visit Reason Onset Date Comments Medication Request 07/18/2015 Suboxone Encounter Details Date Type Department Care Team Description 07/18/2015 Telephone [facility] [place] System, Provider Not Me dication Request Clinic [place] In (Suboxone) [address] [place] [address] Social History Tobacco Use Types Packs/Day Years Used Date Current Every Day Smoker Cigarettes 0.1 10 Smokeless Tobacco: Never Used Comments: 5 cigarettes a day Alcohol Use Standard Drinks/Week Comments No 0 (1 standard drink = 0.6 oz pure alcoho l) Sex Assigned at Date Recorded Female 01/14/2020 10:57 AM CLIENT SERVER PROGRAMMER documented as of this encounter Miscellaneous Notes Telephone Encounter - Edgar Alfredo MD - 07/20/2015 2:06 PM CDT Bridge of Subutex ordered patient notified Telephone Encounter - Mark Roldan - 07/18/2015 2:43 PM CDT Incoming call pt need a bridge for Suboxone, pt states she is . Please follow up contact info: [phone] Ok to leave detail message Mark Roldan [facility] documented in this encounter Plan of Treatment Upcoming Encounters Date Type Specialty Care Team Description 11/15/2021 Office Visit Wound Care Luis Camara DPM [address] [place] [address] (Wo rk) documented as of this encounter Visit Diagnoses Diagnosis Uncomplicated opioid dependence (H) - Pr imary Opioid type dependence, unspecified documented in this encounter Care Teams Desktop Specialist Relationship Specialty Start Date End Date System, Provider Not In PCP - General Clinic 08/12/14 07/13/16 documented as of this encounter
--- OUTSIDE RECORDS SUMMARY | 2021-11-10 00:47 | XMS_ITS | Encounter Summary ---
:1980 Author Organization [place] Address [facility] [place] [address] Care Team Providers Name Role Phone System, Provider Not In Primary Care Provider Unavailable Reason for Visit Reason Onset Date Comments Recheck Medication Erroneous encounter-disregard 05/23/2015 Encounter Details Date Type Department Care Team Description 05/17/2015 Office Visit [facility] Edgar Alfredo dep ressive disorder, recurrent episode, moderate (H) (Primary Dx); Clinic Ashly Gauthier MD Uncomplicated opioid dependence (H); [address] ERRONEOUS ENCOUNTER--[address] [place] [phone] Social History Tobacco Use Types Packs/Day Years Used Date Current Every Day Smoker Cigarettes 0.1 10 Smokeless Tobacco: Never Used Comments: 5 cigarettes a day Alcohol Use Standard Drinks/Week Comments No 0 (1 standard drink = 0.6 oz pure alcoho l) Sex Assigned at Date Recorded Female 01/14/2020 10:57 AM ACCOUNTING SPECIALIST documented as of this encounter Last Filed Vital Signs Vital Sign Reading Time Taken Comments Blood Pressure 124/74 05/17/2015 11:54 AM CDT Pulse 101 05/17/2015 11:54 AM CDT Temperature - - Respiratory Rate - - Oxygen Saturation - - Inhaled Oxygen Concentration - - Weight - - Height - - Body Mass Index - - documented in this encounter Progress Notes Edgar Alfredo MD - 05/23/2015 10:25 PM CDT This encounter was opened in error. Please disregard. documented in this encounter Nursing Notes Suyapa Rodriguez CMA - 05/17/2015 11:54 AM CDT Chief Complaint Patient presents with ??? Recheck Medication Initial BP 124/74 mmHg Pulse 101 Estimated body mass index is 30.96 kg/(m^2) as calculated from the following: Height as of 13: 5' 5.5 (1.664 m). Weight as of 07/28/14: 189 lb (85.73 kg). BP completed using cuff size: large Suyapa Rodriguez MLT, DON documented in this encounter Plan of Treatment Upcoming Encounters Date Type Specialty Care Team Description 11/15/2021 Office Visit Wound Care Luis Camara, [address] [place], [place] [phone] (Wo rk) documented as of this encounter Procedures Procedure Name Priority Date/Time Associated Comments Diagnosis BUPRENORPHINE QUAL Routine 05/17/2015 11:43 Resul ts for this URINE AM CDT procedure are i n the results section. DRUG ABUSE SCREEN (NL, Routine 05/17/2015 11:43 R esults for this RW) AM CDT procedure are i n the results section. documented in this encounter Results Buprenorphine Qual Urine (05/17/2015 11:43 AM CDT) [facility] gist Method Time Signature Buprenorphine Positive [facility] Qual Urine Specimen Anatomical Collection Method Collection Time Receive d Time (Source) Location / / Volume Laterality Urine specimen 05/17/2015 11:43 6 (specimen) AM CDT 11:48 AM CDT Edgar Alfredo MD LAB - URINE ORDERABLES Performing Organization Address City/State/[place] [address] [facility] Building [address] [facility] Drug abuse screen (NL, RW) (05/17/2015 11:43 AM CDT) Component Value Ref Test Analysis [...] Location / / Volume Laterality Urine specimen 05/17/2015 11:43 6 (specimen) AM CDT 11:48 AM CDT Edgar Alfredo MD LAB - URINE ORDERABLES Performing Organization Address City/State/[place] [address] [facility] Building [address] [facility] documented in this encounter Visit Diagnoses Diagnosis Major depressive disorder, recurrent epi sode, moderate (H) - Primary Major depressive disorder, recurrent epi sode, moderate Uncomplicated opioid dependence (H) Opioid type dependence, unspecified ERRONEOUS ENCOUNTER--DISREGARD documented in this encounter Care Teams Coat Maker Relationship Specialty Start Date End Date System, Provider Not In PCP - General Clinic 08/12/14 07/13/16 documented as of this encounter
--- OUTSIDE RECORDS SUMMARY | 2021-11-10 00:47 | XMS_ITS | Encounter Summary ---
:1980 Author Organization [place] Address [address] [facility] [address] Care Team Providers Name Role Phone System, Provider Not In Primary Care Provider Unavailable Reason for Visit Reason Onset Date Comments Other 01/17/2015 appointment request Encounter Details Date Type Department Care Team Description 01/17/2015 Telephone [facility] Edgar Alfredo, [facility] er (appointment Clinic [place] request ) [address] [place] [phone] (Wo rk) Social History Tobacco Use Types Packs/Day Years Used Date Current Every Day Smoker Cigarettes 0.1 10 Smokeless Tobacco: Never Used Comments: 5 cigarettes a day Alcohol Use Standard Drinks/Week Comments No 0 (1 standard drink = 0.6 oz pure alcoho l) Sex Assigned at Date Recorded Female 01/14/2020 10:57 AM FINANCIAL PROFESSIONAL documented as of this encounter Miscellaneous Notes Telephone Encounter - Suyapa Rodriguez CMA - 01/17/2015 1:43 PM CST Called patient, scheduled for . 01/19 @ 10:30a NCIAL PROFESSIONAL Telephone Encounter - Edgar Alfredo MD - 01/17/2015 12:48 PM CST Thursday at 10:30 or Friday at 10:00 Should have enough medication until then NCIAL PROFESSIONAL Telephone Encounter - Shayy Boles - 01/17/2015 10:24 AM CST Incoming call from patient requesting to speak with provider about possibly being seen sometime thisweek. Patient states her son is in the hospital and she is wondering if can squeeze her in to be seen. She is also in need of a bridge of her medication for subutex. Patient can be reached at [phone] Shayy Boles Team Jewel Hole Driller NCIAL PROFESSIONAL documented in this encounter Plan of Treatment Upcoming Encounters Date Type Specialty Care Team Description 11/15/2021 Office Visit Wound Care Luis Camara DPM [address] [place] [address] (Wo rk) documented as of this encounter Visit Diagnoses Not on filedocumented in this encounter Care Teams Strategic Marketing Leader Relationship Specialty Start Date End Date System, Provider Not In PCP - General Clinic 08/12/14 07/13/16 documented as of this encounter
--- OUTSIDE RECORDS SUMMARY | 2021-11-10 00:47 | XMS_ITS | Encounter Summary ---
:1980 Author Organization [place] Address [address] [place] [address] Care Team Providers Name Role Phone System, Provider Not In Primary Care Provider Unavailable Reason for Visit Reason Onset Date Comments Call Back 02/13/2015 Encounter Details Date Type Department Care Team Description 02/13/2015 Telephone [facility] Nithya Alfredo MD Call Back [place] [address] [place] [address] [place], [place] [address] [phone] [place] [phone] Social History Tobacco Use Types Packs/Day Years Used Date Current Every Day Smoker Cigarettes 0.1 10 Smokeless Tobacco: Never Used Comments: 5 cigarettes a day Alcohol Use Standard Drinks/Week Comments No 0 (1 standard drink = 0.6 oz pure alcoho l) Sex Assigned at Date Recorded Female 01/14/2020 10:57 AM WIRE ROPE SALES 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 documented as of this encounter Miscellaneous Notes Addendum Note - Suyapa Murray CMA - 02/16/2015 9:57 AM WIRE ROPE SALES 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 Addended by: SUYAPA MURRAY on: 02/16/2015 09:57 AM Modules accepted: Orders, Medications ROPE SALES 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 Telephone Encounter - Suyapa Murray CMA - 02/13/2015 2:34 PM CST Talked to patient, made appt for 03/02 at 3pm, I will called in Rx on . Told she needs to make this last until her next visit. ROPE SALES 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 Telephone Encounter - Suyapa Murray CMA - 02/13/2015 1:27 PM CST Response from Dr. Alfredo: OK to call in a bridge until 03/02; Subutex 8 mg #11, 1.5 per day. Needs to make this last until 03/02 as we do not replace lost meds Left VM message for pt to call me back. Suyapa Murray, BRADLY, DON ROPE SALES 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 Telephone Encounter - Suyapa Murray CMA - 02/13/2015 11:29 AM WIRE ROPE SALES 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 Message E-mailed to Dr. Alfredo, awaiting response: Patient called, will run out of meds by 02/20/15, should have enough to 02/23/15, she doesn't know why she's short, baby still in Hospital, so been going there a lot. No appt yet, first available . 03/02 (just one slot at the moment). Do you want to call in a bridge or squeeze her in somewhere? ROPE SALES 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 Addendum Note - Nora Scott - 02/13/2015 10:45 AM WIRE ROPE SALES 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 Addended by: NORA SCOTT on: 02/13/2015 10:45 AM Modules accepted: Orders ROPE SALES 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 Telephone Encounter - Nora Scott - 02/13/2015 10:33 AM CST Pt returned call, pt is requesting to see on 02/20/15 because she states she will be out of medication by then. Barrel Endshake Adjuster stated was full that day, but sheet writer would send a message over to to see when he can see the patient and if he's willing to do a bridge of medication until that day. Pt states if a bridge is called in she would like to use the [facility] in [place], [place]. Pt can be reached at [phone]. Nora Scott Team Entry Level Machine Operator ROPE SALES 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 Telephone Encounter - Nora Scott - 02/13/2015 10:25 AM CST Pt called and LVM on 02/09/15 requesting a call back from 's nurse. Barrel Endshake Adjuster attempted to call patient back on 02/13/15 to find out more details, but no answer. LVM asking patient to call the clinic back with any questions she may have. Nora Scott Team Entry Level Machine Operator ROPE SALES 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 documented in this encounter Plan of Treatment Upcoming Encounters Date Type Specialty Care Team Description 11/15/2021 Office Visit Wound Care Luis Camara, [place] [address] [place] [address] (Wo rk) documented as of this encounter Visit Diagnoses Diagnosis Uncomplicated opioid dependence (H) - Pr imary Opioid type dependence, unspecified documented in this encounter Care Teams Hospital Clinic Assistant Relationship Specialty Start Date End Date System, Provider Not In PCP - General Clinic 08/12/14 07/13/16 documented as of this encounter
--- OUTSIDE RECORDS SUMMARY | 2021-11-10 00:47 | XMS_ITS | Encounter Summary ---
:1980 Author Organization [place] Address [address] [facility] [place] [address] Care Team Providers Name Role Phone System, Provider Not In Primary Care Provider Unavailable Reason for Visit Reason Onset Date Comments Erroneous encounter-disregard 10/11/2014 Encounter Details Date Type Department Care Team Description 10/11/2014 Office Visit [facility] Edgar Alfredo ERRONEOUS Clinic Ashly Gauthier MD ENCOUNTER--DISREGARD [address] [place] (Primary Dx) [address] [place] [phone] Social History Tobacco Use Types Packs/Day Years Used Date Current Every Day Smoker Cigarettes 0.1 10 Smokeless Tobacco: Never Used Comments: 5 cigarettes a day Alcohol Use Standard Drinks/Week Comments No 0 (1 standard drink = 0.6 oz pure alcoho l) Sex Assigned at Date Recorded Female 01/14/2020 10:57 AM RACECAR DRIVER documented as of this encounter Progress Notes Edgar Alfredo MD - 10/11/2014 2:25 PM CDT This encounter was opened in error. Please disregard. documented in this encounter Plan of Treatment Upcoming Encounters Date Type Specialty Care Team Description 11/15/2021 Office Visit Wound Care Luis Camara, [place] [address] [place] [address] (Wo rk) documented as of this encounter Visit Diagnoses Diagnosis ERRONEOUS ENCOUNTER--DISREGARD - Primary documented in this encounter Care Teams Senior Electrical Controls Engineer Relationship Specialty Start Date End Date System, Provider Not In PCP - General Clinic 08/12/14 07/13/16 documented as of this encounter
--- OUTSIDE RECORDS SUMMARY | 2021-11-10 00:47 | XMS_ITS | Encounter Summary ---
:1980 Author Organization [place] Address [address] [facility] [place] [address] Care Team Providers Name Role Phone System, Provider Not In Primary Care Provider Unavailable Reason for Visit Reason Comments Recheck Medication Encounter Details Date Type Department Care Team Description 11/03/[address] [facility] Edgar Alfredo ated opioid dependence (H) (Primary Dx); Clinic Ashly Gauthier MD Opiate dependence (H) [address] [place] [phone] Social History Tobacco Use Types Packs/Day Years Used Date Current Every Day Smoker Cigarettes 0.1 10 Smokeless Tobacco: Never Used Comments: 5 cigarettes a day Alcohol Use Standard Drinks/Week Comments No 0 (1 standard drink = 0.6 oz pure alcoho l) Sex Assigned at Date Recorded Female 01/14/2020 10:57 AM SPECIAL POLICE documented as of this encounter Last Filed Vital Signs Vital Sign Reading Time Taken Comments Blood Pressure 103/61 11/03/2014 4:46 PM CDT Pulse 92 11/03/2014 4:46 PM CDT Temperature - - Respiratory Rate - - Oxygen Saturation - - Inhaled Oxygen Concentration - - Weight - - Height - - Body Mass Index - - documented in this encounter Progress Notes Edgar Alfredo MD - 11/04/2014 1:50 PM CDT SUBJECTIVE: Stephani Parker is a 34 year old female who presents to clinic today for the following health issues: Suboxone followup DOING OK EDC IS 12/13 DISCUSSED PREVIOUS PREGNANCIES; ON SUBUTEX FOR ALL;ONE HAD WITHDRAWAL FOR 1 WEEK IS SPLITTING HER SUBOXONE ADVISED TO A TID REGIMEN WORRIED ABOUT NOT BEING BIG ENOUGH FOR DUE NEXT MONTH BUT IS HAVING FREQUENT ULTRASOUNDS TIRED ALL THE TIME Status since last visit: Since last visit [...] Outpatient Prescriptions Medication Sig Dispense Refill ??? Ferrous Sulfate (IRON) 325 (65 FE) MG tablet Take 1 tablet by mouth 2 times daily ??? buprenorphine (SUBUTEX) 8 MG SUBL Take 0.5 tab 3 times daily 42 tablet 0 ??? DiphenhydrAMINE HCl (BENADRYL ALLERGY PO) Take by mouth as needed ??? OMEPRAZOLE PO Take by mouth daily ??? Venlafaxine HCl (EFFEXOR PO) Take by mouth 3 times daily ??? levothyroxine (SYNTHROID, LEVOTHROID) 125 MCG tablet Take 1 tablet by mouth daily ??? Voojewgl-Pjt-Rn-FA ( VITAMINS) 0.8 MG TABS Take 1 [...] list, Allergies, and Medical/Social/Surgical histories reviewed in [facility] andupdated as appropriate. ROS: Constitutional, HEENT, cardiovascular, pulmonary, gi and gu systems are negative, except as otherwise noted. OBJECTIVE: BP 103/61 mmHg Pulse 92 There is no weight on file to calculate BMI. GENERAL: healthy, alert and no distress MENTAL STATUS EXAM Appearance: appropriate Attitude: cooperative Behavior: normal Eyre Contact: normal Speech: normal Orientation: oreinted to person , place, time and situation Mood: admits sadness and anxiety most of time Affect: Mood Congruient Thought Process: clear Suicidal Ideation: reports thoughts, no intention Hallucination: no Diagnostic Test Results: Results for orders placed or performed in visit on 11/03/14 (from the past 24 hour(s)) Drug abuse [...] Urine Positive ASSESSMENT: OPIOID DEPENDENCE PLAN: ICD-10-CM ICD-9-CM 1. Uncomplicated opioid dependence F11.20 304.00 buprenorphine (SUBUTEX) 8 MG SUBL 2. Opiate dependence F11.20 304.00 Drug abuse screen (NL, RW) Buprenorphine Qual Urine MEDICATIONS: Orders Placed This Encounter Medications ??? Ferrous Sulfate (IRON) 325 (65 FE) MG tablet Sig: Take 1 tablet by mouth 2 times daily ??? buprenorphine (SUBUTEX) 8 MG SUBL Sig: Take 0.5 tab 3 times daily Dispense: 42 tablet Refill: 0 - Continue other medications without change FUTURE APPOINTMENTS: - Follow-up visit in 1 MONTH Edgar Alfredo MD, MD [facility] documented in this encounter Nursing Notes Suyapa Rodriguez CMA - 11/03/2014 4:47 PM CDT Chief Complaint Patient presents with ??? Recheck Medication Initial BP 103/61 mmHg Pulse 92 Estimated body mass index is 30.96 kg/(m^2) as calculated from thefollowing: Height as of 13: 5' 5.5 (1.664 m). Weight as of 07/28/14: 189 lb (85.73 kg). BP completed using cuff size: large Suyapa Rodriguez MLT, CMA documented in this encounter Plan of Treatment Upcoming Encounters Date Type Specialty Care Team Description 11/15/2021 Office Visit Wound Care Luis Camara DPM [address] [place] [phone] (Wo rk) documented as of this encounter Procedures Procedure Name Priority Date/Time Associated Comments Diagnosis BUPRENORPHINE QUAL Routine 11/03/2014 4:06 PM Opiate dependenc e Results for this URINE CDT (H) procedure are i n the results section. DRUG ABUSE SCREEN (NL, Routine 11/03/2014 4:06 PM Opiate depen dence Results for this RW) CDT (H) procedure are i n the results section. documented in this encounter Results Buprenorphine Qual Urine (11/03/2014 4:06 PM CDT) Patholo gist Method Time Signature Buprenorphine Positive RJ LAB Qual Urine Specimen Anatomical Collection Method Collection Time Receive d Time (Source) Location / / Volume Laterality Urine specimen 11/03/2014 4:06 PM 015 4:11 (specimen) CDT PM CDT Edgar Alfredo MD LAB - URINE ORDERABLES Performing Organization Address City/State/[place] [address] [facility] Building [address] LAB Drug abuse screen (NL, RW) (11/03/2014 4:06 PM CDT) Component Value Ref Test Analysis [...] Location / / Volume Laterality Urine specimen 11/03/2014 4:06 PM 015 4:11 (specimen) CDT PM CDT Edgar Alfredo MD LAB - URINE ORDERABLES Performing Organization Address City/[facility] [place] [address] [facility] [address] LAB documented in this encounter Visit Diagnoses Diagnosis Uncomplicated opioid dependence (H) - Pr imary Opioid type dependence, unspecified documented in this encounter Care Teams Staff Writer Relationship Specialty Start Date End Date System, Provider Not In PCP - General Clinic 08/12/14 07/13/16 documented as of this encounter
--- OUTSIDE RECORDS SUMMARY | 2021-11-10 00:47 | XMS_ITS | Encounter Summary ---
:1980 Author Organization [place] Address [address] [facility] [place] [address] Care Team Providers Name Role Phone System, Provider Not In Primary Care Provider Unavailable Reason for Visit Reason Comments No Show Encounter Details Date Type Department Care Team Description 07/18/2015 Office Visit [facility] Edgar Alfredo NO SHOW ( Primary Dx) Clinic Ashly Gauthier MD [address] [place] [address] [place] [phone] Social History Tobacco Use Types Packs/Day Years Used Date Current Every Day Smoker Cigarettes 0.1 10 Smokeless Tobacco: Never Used Comments: 5 cigarettes a day Alcohol Use Standard Drinks/Week Comments No 0 (1 standard drink = 0.6 oz pure alcoho l) Sex Assigned at Date Recorded Female 01/14/2020 10:57 AM SOFTWARE DEVELOPMENT PROJECT MANAGER documented as of this encounter Progress Notes Edgar Alfredo MD - 07/21/2015 12:51 PM CDT This encounter was opened in error. Please disregard. documented in this encounter Plan of Treatment Upcoming Encounters Date Type Specialty Care Team Description 11/15/2021 Office Visit Wound Care Luis Camara DPM [address] [place] [address] (Wo rk) documented as of this encounter Visit Diagnoses Diagnosis NO SHOW - Primary documented in this encounter Care Teams Route Specialist Relationship Specialty Start Date End Date System, Provider Not In PCP - General Clinic 08/12/14 07/13/16 documented as of this encounter
--- OUTSIDE RECORDS SUMMARY | 2021-11-10 00:47 | XMS_ITS | Encounter Summary ---
:1980 Author Organization [place] Address [address] [facility] [place] [address] Care Team Providers Name Role Phone System, Provider Not In Primary Care Provider Unavailable Reason for Visit Reason Onset Date Comments Erroneous encounter-disregard 05/09/2015 Encounter Details Date Type Department Care Team Description 05/09/2015 Telephone [facility] Edgar Alfred[facility], [facility]-disregard [address] [place] [address] [place] [phone] (Wo rk) Social History Tobacco Use Types Packs/Day Years Used Date Current Every Day Smoker Cigarettes 0.1 10 Smokeless Tobacco: Never Used Comments: 5 cigarettes a day Alcohol Use Standard Drinks/Week Comments No 0 (1 standard drink = 0.6 oz pure alcoho l) Sex Assigned at Date Recorded Female 01/14/2020 10:57 AM UNLOAD ASSOCIATE documented as of this encounter Plan of Treatment Upcoming Encounters Date Type Specialty Care Team Description 11/15/2021 Office Visit Wound Care Luis Camara, [place] [address] [place] [address] (Wo rk) documented as of this encounter Visit Diagnoses Not on filedocumented in this encounter Care Teams Piping Design Specialist Relationship Specialty Start Date End Date System, Provider Not In PCP - General Clinic 08/12/14 07/13/16 documented as of this encounter
--- OUTSIDE RECORDS SUMMARY | 2021-11-10 00:47 | XMS_ITS | Encounter Summary ---
:1980 Author Organization [place] Address [address] [facility] [place] [address] Care Team Providers Name Role Phone System, Provider Not In Primary Care Provider Unavailable Reason for Visit Reason Onset Date Comments Recheck Medication Erroneous encounter-disregard 05/23/2015 Encounter Details Date Type Department Care Team Description 05/09/2015 Office Visit [facility] Edgar Alfredo NO SHOW ( Primary Dx); Clinic Ashly Gauthier MD ERRONEOUS ENCOUNTER--DISREGARD [address] [place] [address] [place] [phone] Social History Tobacco Use Types Packs/Day Years Used Date Current Every Day Smoker Cigarettes 0.1 10 Smokeless Tobacco: Never Used Comments: 5 cigarettes a day Alcohol Use Standard Drinks/Week Comments No 0 (1 standard drink = 0.6 oz pure alcoho l) Sex Assigned at Date Recorded Female 01/14/2020 10:57 AM AUTO REPAIR SHOP MANAGER documented as of this encounter Progress Notes Edgar Alfredo MD - 05/23/2015 10:31 PM CDT This encounter was opened in error. Please disregard. documented in this encounter Plan of Treatment Upcoming Encounters Date Type Specialty Care Team Description 11/15/2021 Office Visit Wound Care Luis Camara DPM [address] [place] [address] (Wo rk) documented as of this encounter Visit Diagnoses Diagnosis NO SHOW - Primary ERRONEOUS ENCOUNTER--DISREGARD documented in this encounter Care Teams Secret Code Expert Relationship Specialty Start Date End Date System, Provider Not In PCP - General Clinic 08/12/14 07/13/16 documented as of this encounter
--- OUTSIDE RECORDS SUMMARY | 2021-11-10 00:47 | XMS_ITS | Encounter Summary ---
:1980 Author Organization [place] Address [address] [facility] [place] [address] Care Team Providers Name Role Phone System, Provider Not In Primary Care Provider Unavailable Reason for Visit Reason Onset Date Comments Medication Request 05/02/2015 Encounter Details Date Type Department Care Team Description 05/02/2015 Telephone [facility] Edgar Alfredo Ma rk, Medication Request [facility] [address] [place] [phone] (Wo rk) Social History Tobacco Use Types Packs/Day Years Used Date Current Every Day Smoker Cigarettes 0.1 10 Smokeless Tobacco: Never Used Comments: 5 cigarettes a day Alcohol Use Standard Drinks/Week Comments No 0 (1 standard drink = 0.6 oz pure alcoho l) Sex Assigned at Date Recorded Female 01/14/2020 10:57 AM CALL OUT CLERK documented as of this encounter Miscellaneous Notes Addendum Note - Suyapa Murray CMA - 05/02/2015 1:30 PM CDT Addended by: SUYAPA MURRAY on: 05/02/2015 01:30 PM Modules accepted: Medications Telephone Encounter - Suyapa Murray CMA - 05/02/2015 1:29 PM CDT Rx faxed to pharm Telephone Encounter - Edgar Alfredo MD - 05/02/2015 12:39 PM CDT Bridge ordered Telephone Encounter - Vivian Spence CMA - 05/02/2015 9:31 AM CDT Incoming call from pt stating she cant come in today for 4 week follow up appt with Dr Alfredo pt rescheduled 05/09/2015 pt requesting a bridge until next scheduled appt please send to [facility] pharmacy Vivian Spence [facility] [address] Lab Technician documented in this encounter Plan of Treatment Upcoming Encounters Date Type Specialty Care Team Description 11/15/2021 Office Visit Wound Care Luis Camara, [place] [address] [place] [address] (Wo rk) documented as of this encounter Visit Diagnoses Diagnosis Uncomplicated opioid dependence (H) - Pr imary Opioid type dependence, unspecified documented in this encounter Care Teams Screener Operator Relationship Specialty Start Date End Date System, Provider Not In PCP - General Clinic 08/12/14 07/13/16 documented as of this encounter
--- OUTSIDE RECORDS SUMMARY | 2021-11-10 00:47 | XMS_ITS | Encounter Summary ---
:1980 Author Organization [place] Address [address] [facility] [place] [address] Care Team Providers Name Role Phone System, Provider Not In Primary Care Provider Unavailable Reason for Visit Reason Onset Date Comments Clinic Care Coordination - Follow-up 10/06/2014 Encounter Details Date Type Department Care Team Description 10/06/2014 Telephone [facility] Breanna Coleman Clinic Ca re Coordination Maternal Medicine MD Julian - Follow-up Center [place] [address] [place], [place] [phone] Social History Tobacco Use Types Packs/Day Years Used Date Current Every Day Smoker Cigarettes 0.1 10 Smokeless Tobacco: Never Used Comments: 5 cigarettes a day Alcohol Use Standard Drinks/Week Comments No 0 (1 standard drink = 0.6 oz pure alcoho l) Sex Assigned at Date Recorded Female 01/14/2020 10:57 AM FINANCIAL ACCOUNTANT documented as of this encounter Miscellaneous Notes Telephone Encounter - Breanna Coleman MD - 10/06/2014 5:34 PM CDT After discussion with the father of the , Stephani has decided that she will transfer care to [facility]. We will forward her records to [facility] and anticipate that they will bein touch with her to arrange for ultrasound, echo and to establish OB care in the next couple of days. Breanna Coleman MD Maternal- Medicine & Clinical Genetics October 06, 2014 documented in this encounter Plan of Treatment Upcoming Encounters Date Type Specialty Care Team Description 11/15/2021 Office Visit Wound Care Luis Camara, [place] [address] [place] [phone] (Wo rk) documented as of this encounter Visit Diagnoses Not on filedocumented in this encounter Care Teams Set And Exhibit Designer Relationship Specialty Start Date End Date System, Provider Not In PCP - General Clinic 08/12/14 07/13/16 documented as of this encounter
--- OUTSIDE RECORDS SUMMARY | 2021-11-10 00:47 | XMS_ITS | Encounter Summary ---
:1980 Author Organization [place] Address [address] [facility] [place] [address] Care Team Providers Name Role Phone System, Provider Not In Primary Care Provider Unavailable Reason for Visit Reason Onset Date Comments Care 10/06/2014 Encounter Details Date Type Department Care Team Description 10/06/2014 Telephone [facility] Maternal Breanna Worthington MD Care Medicine Center [address] [place] [address] [address] [place], [place] [address] [phone] Social History Tobacco Use Types Packs/Day Years Used Date Current Every Day Smoker Cigarettes 0.1 10 Smokeless Tobacco: Never Used Comments: 5 cigarettes a day Alcohol Use Standard Drinks/Week Comments No 0 (1 standard drink = 0.6 oz pure alcoho l) Sex Assigned at Date Recorded Female 01/14/2020 10:57 AM GROUP BURNER MACHINE documented as of this encounter Miscellaneous Notes Telephone Encounter - Breanna Coleman MD - 10/06/2014 3:47 PM CDT Patient has missed several appointments at [facility] in the last few weeks. Called patient to discuss the changes in Pediatric Cardiothoracic Surgery services around the time of her delivery. Indicated that while I had hoped to discuss this with her in person, I did not want to put it off further due to hermissed appointments. Offered delivery here with transfer of baby after (not recommended) or transfer of care to another institution for care and delivery. The two closest options would be [facility] and [facility]. Patient is unsure which she will choose. Indicates that she would like to discuss this with the father of the and requests that I call her back in about an hour which I indicated I will try to do. Breanna Coleman MD Maternal- Medicine & Clinical Genetics October 06, 2014 documented in this encounter Plan of Treatment Upcoming Encounters Date Type Specialty Care Team Description 11/15/2021 Office Visit Wound Care Luis Camara, [place] [address] [place] [address] (Wo rk) documented as of this encounter Visit Diagnoses Not on filedocumented in this encounter Care Teams Property Management Accountant Relationship Specialty Start Date End Date System, Provider Not In PCP - General Clinic 08/12/14 07/13/16 documented as of this encounter
--- OUTSIDE RECORDS SUMMARY | 2021-11-10 00:47 | XMS_ITS | Encounter Summary ---
:1980 Author Organization [place] Address [address] [facility] [place] [address] Care Team Providers Name Role Phone System, Provider Not In Primary Care Provider Unavailable Reason for Visit Reason Onset Date Comments Medication Request 12/19/2014 medication bridge Encounter Details Date Type Department Care Team Description 12/19/2014 Telephone [facility] Edgar Alfredo, [facility] ication Request Clinic Ashly VÁSQUEZ (medication bridge) [address] [place] [address] [place] [phone] (Wo rk) Social History Tobacco Use Types Packs/Day Years Used Date Current Every Day Smoker Cigarettes 0.1 10 Smokeless Tobacco: Never Used Comments: 5 cigarettes a day Alcohol Use Standard Drinks/Week Comments No 0 (1 standard drink = 0.6 oz pure alcoho l) Sex Assigned at Date Recorded Female 01/14/2020 10:57 AM FACE MAN documented as of this encounter Miscellaneous Notes Telephone Encounter - Edgar Alfredo MD - 12/20/2014 12:17 PM CST Bridge ordered MAN Telephone Encounter - Nora Scott - 12/20/2014 11:36 AM CST Patient called back to check on status of message below. She is requesting a call back. Nora Scott Team Forensic Structural Engineer MAN Telephone Encounter - Shayy Boles - 12/19/2014 3:41 PM CST Incoming call from patient requesting a bridge for her subutex medication until her next apt on 12/26/14. Patient can be reached at [phone] with any questions Shayy Boles Team Forensic Structural Engineer [place] documented in this encounter Plan of Treatment Upcoming Encounters Date Type Specialty Care Team Description 11/15/2021 Office Visit Wound Care Luis Camara, [place] [address] [place] [address] (Wo rk) documented as of this encounter Visit Diagnoses Diagnosis Uncomplicated opioid dependence (H) - Pr imary Opioid type dependence, unspecified documented in this encounter Care Teams Feather Separator Relationship Specialty Start Date End Date System, Provider Not In PCP - General Clinic 08/12/14 07/13/16 documented as of this encounter
--- OUTSIDE RECORDS SUMMARY | 2021-11-10 00:47 | XMS_ITS | Encounter Summary ---
:1980 Author Organization [place] Address [address] [place] [address] Care Team Providers Name Role Phone System, Provider Not In Primary Care Provider Unavailable Reason for Visit Reason Onset Date Comments Call Back 12/12/2014 Encounter Details Date Type Department Care Team Description 12/12/2014 Telephone [facility] Nithya Alfredo MD Call Back [place] [address] [facility] [address] [place], [place] [address] [phone] [place] [phone] Social History Tobacco Use Types Packs/Day Years Used Date Current Every Day Smoker Cigarettes 0.1 10 Smokeless Tobacco: Never Used Comments: 5 cigarettes a day Alcohol Use Standard Drinks/Week Comments No 0 (1 standard drink = 0.6 oz pure alcoho l) Sex Assigned at Date Recorded Female 01/14/2020 10:57 AM MACARONI PRESS OPERATOR documented as of this encounter Miscellaneous Notes Telephone Encounter - Edgar Alfredo MD - 12/13/2014 12:52 PM CDT Had emergency Baby doing OK Discharged on Morphine and Percocet but having poorly controlled pain and withdrawal ; advised wait 24 hrs, stop opiates, then resume Subutex. Call back with progress report. Telephone Encounter - Vivian Spence CMA - 12/12/2014 11:37 AM CDT Incoming call from pt requesting a call back from Dr Alfredo pt did state what the call was regarding please call pt back at [phone] Vivian Spence [facility] Manager Solution documented in this encounter Plan of Treatment Upcoming Encounters Date Type Specialty Care Team Description 11/15/2021 Office Visit Wound Care Luis Camara, [place] [address] [place] [address] (Wo rk) documented as of this encounter Visit Diagnoses Not on filedocumented in this encounter Care Teams Customer Assistant Relationship Specialty Start Date End Date System, Provider Not In PCP - General Clinic 08/12/14 07/13/16 documented as of this encounter
--- OUTSIDE RECORDS SUMMARY | 2021-11-10 00:47 | XMS_ITS | Encounter Summary ---
:1980 Author Organization [place] Address [address] [facility] [place] [address] Care Team Providers Name Role Phone System, Provider Not In Primary Care Provider Unavailable Reason for Visit Reason Onset Date Comments Medication Request 02/09/2015 buprenorphine (SUBUT EX) 8 MG SUBL Encounter Details Date Type Department Care Team Description 02/09/2015 Telephone [facility] Edgar Alfredo, [facility] ication Request Clinic Ashly VÁSQUEZ (buprenorphine [address] [place] (SUBUTEX) 8 MG SUBL) [address] [place] [phone] (Wo rk) Social History Tobacco Use Types Packs/Day Years Used Date Current Every Day Smoker Cigarettes 0.1 10 Smokeless Tobacco: Never Used Comments: 5 cigarettes a day Alcohol Use Standard Drinks/Week Comments No 0 (1 standard drink = 0.6 oz pure alcoho l) Sex Assigned at Date Recorded Female 01/14/2020 10:57 AM PROTECTIVE SERVICES SOCIAL WORKER documented as of this encounter Miscellaneous Notes Telephone Encounter - Edgar Alfredo MD - 02/09/2015 1:37 PM CST Not sure what this is about; had 28 day supply ordered 01/19/15 - should last until 02/16/15 Does not have an appointment ; may need a bridge ECTIVE SERVICES SOCIAL WORKER Telephone Encounter - Suyapa Rodriguez CMA - 02/09/2015 12:08 PM PROTECTIVE SERVICES SOCIAL WORKER Pharmacy called, given vacation override to fill early. ECTIVE SERVICES SOCIAL WORKER Telephone Encounter - Shayy Boles - 02/09/2015 11:44 AM CST Incoming call from patient requesting to speak with a nurse regarding her medication for buprenorphine (SUBUTEX) 8 MG SUBL. Patient states she was told by her pharmacy that they would need and ok from provider to get this medication refilled. Patient can be reached at [phone] Shayy Boles Team Stagecraft Professor ECTIVE SERVICES SOCIAL WORKER documented in this encounter Plan of Treatment Upcoming Encounters Date Type Specialty Care Team Description 11/15/2021 Office Visit Wound Care Luis Camara DPM [address] [place] [address] (Wo rk) documented as of this encounter Visit Diagnoses Not on filedocumented in this encounter Care Teams Blueprint Machine Operator Relationship Specialty Start Date End Date System, Provider Not In PCP - General Clinic 08/12/14 07/13/16 documented as of this encounter
--- OUTSIDE RECORDS SUMMARY | 2021-11-10 00:47 | XMS_ITS | Encounter Summary ---
:1980 Author Organization [place] Address [address] [facility] [place] [address] Care Team Providers Name Role Phone System, Provider Not In Primary Care Provider Unavailable Reason for Visit Reason Comments Recheck Medication Encounter Details Date Type Department Care Team Description 10/13/2014 Office Visit [facility] Edgar Alfredo ated opioid dependence (H) (Primary Dx); Clinic Ashly Gauthier MD Opiate dependence (H) [address] [place] [phone] Social History Tobacco Use Types Packs/Day Years Used Date Current Every Day Smoker Cigarettes 0.1 10 Smokeless Tobacco: Never Used Comments: 5 cigarettes a day Alcohol Use Standard Drinks/Week Comments No 0 (1 standard drink = 0.6 oz pure alcoho l) Sex Assigned at Date Recorded Female 01/14/2020 10:57 AM DOOR TO DOOR SELLING AGENT documented as of this encounter Last Filed Vital Signs Vital Sign Reading Time Taken Comments Blood Pressure 115/70 10/13/2014 3:15 PM CDT Pulse 91 10/13/2014 3:15 PM CDT Temperature - - Respiratory Rate - - Oxygen Saturation - - Inhaled Oxygen Concentration - - Weight - - Height - - Body Mass Index - - documented in this encounter Progress Notes Edgar Alfredo MD - 10/16/2014 10:39 AM CDT SUBJECTIVE: Stephani Parker is a 34 year old female who presents to clinic today for the following health issues: Suboxone followup WILL BE SWITCHING OB COVERAGE TO [employer] BABY WILL HAVE HEART SURGERY ON DAY 2 DOING OK ON CURRENT DOSE OF SUBUTEX BUT HAVING SOME CRAMPING AND DIARRHEA IN THE MIDDLE OF THE NIGHT ADVISED CHANGING SUBOXONE TIMES TO 4 MG TID Status since last visit: Since last visit patient has been: stable. ABOVE Intensity: ?? There has been: no craving. ?? Suboxone Dose: adequate. DISCUSSED RISK OF EDDIE Progression of Symptoms: ?? Cues to use [...] Outpatient Prescriptions Medication Sig Dispense Refill ??? DiphenhydrAMINE HCl (BENADRYL ALLERGY PO) Take by mouth as needed ??? buprenorphine (SUBUTEX) 8 MG SUBL Take 1.5 tab daily 33 tablet 0 ??? OMEPRAZOLE PO Take by mouth daily ??? Venlafaxine HCl (EFFEXOR PO) Take by mouth 3 times daily ??? levothyroxine (SYNTHROID, LEVOTHROID) 125 MCG tablet Take 1 tablet by mouth daily ??? Avwtocxt-Ugt-Kr-FA ( VITAMINS) 0.8 MG TABS Take 1 tablet by mouth daily 30 tablet 6 ??? WELLBUTRIN SR 150 MG 12 hr tablet Take 1 tablet (150 mg) by mouth 2 times daily 60 tablet 5 ??? [DISCONTINUED] VITAMINS PO Take by mouth. ??? Cholecalciferol (VITAMIN D) 2000 UNITS tablet Take 2,000 Units by mouth daily. 100 tablet 3 No Known Allergies Problem list, Medication list, Allergies, and Medical/Social/Surgical histories reviewed in [facility] andupdated as appropriate. ROS: Constitutional, HEENT, cardiovascular, pulmonary, gi and gu systems are negative, except as otherwise noted. OBJECTIVE: BP 115/70 mmHg Pulse 91 There is no weight on file to [...] orders placed or performed in visit on 10/13/14 Drug abuse screen (NL, RW) Result Value [...] F11.20 304.00 buprenorphine (SUBUTEX) 8 MG SUBL DISCONTINUED: buprenorphine (SUBUTEX) 8 MG SUBL 2. Opiate dependence F11.20 304.00 Drug abuse screen (NL, RW) Buprenorphine Qual Urine MEDICATIONS: Orders Placed This Encounter Medications ??? DiphenhydrAMINE HCl (BENADRYL ALLERGY PO) Sig: Take by mouth as needed ??? DISCONTD: buprenorphine (SUBUTEX) 8 MG SUBL Sig: Take 1.5 tab daily Dispense: 33 tablet Refill: 0 ??? buprenorphine (SUBUTEX) 8 MG SUBL Sig: Take 1.5 tab daily Dispense: 33 tablet Refill: 0 - Continue other medications without change FUTURE APPOINTMENTS: - Follow-up visit in 1 MONTH Edgar Alfredo MD, MD [facility] documented in this encounter Nursing Notes Suyapa Rodriguez CMA - 10/13/2014 3:15 PM CDT Chief Complaint Patient presents with ??? Recheck Medication Initial BP 115/70 mmHg Pulse 91 Estimated body mass index is 30.96 kg/(m^2) as calculated from thefollowing: Height as of 13: 5' 5.5 (1.664 m). Weight as of 07/28/14: 189 lb (85.73 kg). BP completed using cuff size: large Suyapa Rodriguez MLT, CMA documented in this encounter Plan of Treatment Upcoming Encounters Date Type Specialty Care Team Description 11/15/2021 Office Visit [facility] Luis Camara DPM [address] [place] [phone] (Wo rk) documented as of this encounter Procedures Procedure Name Priority Date/Time Associated Comments Diagnosis BUPRENORPHINE QUAL Routine 10/13/2014 3:01 PM Opiate dependenc e Results for this URINE CDT (H) procedure are i n the results section. DRUG ABUSE SCREEN (NL, Routine 10/13/2014 3:01 PM Opiate depen dence Results for this RW) CDT (H) procedure are i n the results section. documented in this encounter Results Buprenorphine Qual Urine (10/13/2014 3:01 PM CDT) Patholo gist Method Time Signature Buprenorphine Positive [facility]J LAB Qual Urine Specimen Anatomical Collection Method Collection Time Receive d Time (Source) Location / / Volume Laterality Urine specimen 10/13/2014 3:01 PM 015 3:06 (specimen) CDT PM CDT Edgar Alfredo MD LAB - URINE ORDERABLES Performing Organization Address City/State/[place] [address] [facility] Building [address] LAB Drug abuse screen (NL, RW) (10/13/2014 3:01 PM CDT) Component Value Ref Test Analysis [...] Location / / Volume Laterality Urine specimen 10/13/2014 3:01 PM 015 3:06 (specimen) CDT PM CDT Edgar Alfredo MD LAB - URINE ORDERABLES Performing Organization Address City/State/[facility] [place] [address] [facility] Building [address] LAB documented in this encounter Visit Diagnoses Diagnosis Uncomplicated opioid dependence (H) - Pr imary Opioid type dependence, unspecified documented in this encounter Care Teams Associate Music Professor Relationship Specialty Start Date End Date System, Provider Not In PCP - General Clinic 08/12/14 07/13/16 documented as of this encounter
--- OUTSIDE RECORDS SUMMARY | 2021-11-10 00:47 | XMS_ITS | Encounter Summary ---
:1980 Author Organization [place] Address [address] [place] [address] Care Team Providers Name Role Phone System, Provider Not In Primary Care Provider Unavailable Reason for Visit Reason Onset Date Comments Recheck Medication Erroneous encounter-disregard 06/13/2015 Encounter Details Date Type Department Care Team Description 06/12/2015 Office Visit [facility] Edgar Alfredo NO SHOW ( Primary Dx); Clinic Ashly Gauthier MD ERRONEOUS ENCOUNTER--DISREGARD [address] [place] [phone] Social History Tobacco Use Types Packs/Day Years Used Date Current Every Day Smoker Cigarettes 0.1 10 Smokeless Tobacco: Never Used Comments: 5 cigarettes a day Alcohol Use Standard Drinks/Week Comments No 0 (1 standard drink = 0.6 oz pure alcoho l) Sex Assigned at Date Recorded Female 01/14/2020 10:57 AM MILLWRIGHT INSTRUCTOR documented as of this encounter Progress Notes Edgar Alfredo MD - 06/13/2015 1:56 PM CDT This encounter was opened in error. Please disregard. documented in this encounter Plan of Treatment Upcoming Encounters Date Type Specialty Care Team Description 11/15/2021 Office Visit W[facility] Care Luis Camara DPM [address] [place] [address] (Wo rk) documented as of this encounter Visit Diagnoses Diagnosis NO SHOW - Primary ERRONEOUS ENCOUNTER--DISREGARD documented in this encounter Care Teams Rotary Pump Operator Relationship Specialty Start Date End Date System, Provider Not In PCP - General Clinic 08/12/14 07/13/16 documented as of this encounter
--- OUTSIDE RECORDS SUMMARY | 2021-11-10 00:47 | XMS_ITS | Encounter Summary ---
:1980 Author Organization [place] Address [address] [facility] [place] [address] Care Team Providers Name Role Phone System, Provider Not In Primary Care Provider Unavailable Reason for Visit Reason Onset Date Comments Recheck Medication Erroneous encounter-disregard 05/07/2015 Encounter Details Date Type Department Care Team Description 05/01/2015 Office Visit [facility] Edgar Alfredo ERRONEOUS Clinic Ashly Gauthier MD ENCOUNTER--DISREGARD [address] [place] (Primary Dx) [address] [place] [phone] Social History Tobacco Use Types Packs/Day Years Used Date Current Every Day Smoker Cigarettes 0.1 10 Smokeless Tobacco: Never Used Comments: 5 cigarettes a day Alcohol Use Standard Drinks/Week Comments No 0 (1 standard drink = 0.6 oz pure alcoho l) Sex Assigned at Date Recorded Female 01/14/2020 10:57 AM OPTION TRADER documented as of this encounter Progress Notes Edgar Alfredo MD - 05/07/2015 10:46 AM CDT This encounter was opened in error. Please disregard. documented in this encounter Plan of Treatment Upcoming Encounters Date Type Specialty Care Team Description 11/15/2021 Office Visit [facility] Luis Camara, [address] [place] [address] (Wo rk) documented as of this encounter Visit Diagnoses Diagnosis ERRONEOUS ENCOUNTER--DISREGARD - Primary documented in this encounter Care Teams District Associate Judge Relationship Specialty Start Date End Date System, Provider Not In PCP - General Clinic 08/12/14 07/13/16 documented as of this encounter
--- OUTSIDE RECORDS SUMMARY | 2021-11-10 00:47 | XMS_ITS | Encounter Summary ---
:1980 Author Organization [place] Address [address] [facility] [place] [address] Care Team Providers Name Role Phone System, Provider Not In Primary Care Provider Unavailable Reason for Visit Reason Comments Recheck Medication Encounter Details Date Type Department Care Team Description 01/19/2015 Office Visit [facility] Edgar Alfredoplic ated opioid dependence (H) (Primary Dx); Clinic Ashly Gauthire MD Major depressive disorder, recurrent epi sode, moderate (H) [address] [place] [phone] Social History Tobacco Use Types Packs/Day Years Used Date Current Every Day Smoker Cigarettes 0.1 10 Smokeless Tobacco: Never Used Comments: 5 cigarettes a day Alcohol Use Standard Drinks/Week Comments No 0 (1 standard drink = 0.6 oz pure alcoho l) Sex Assigned at Date Recorded Female 01/14/2020 10:57 AM WINDOWS SERVER ADMINISTRATOR documented as of this encounter Last Filed Vital Signs Vital Sign Reading Time Taken Comments Blood Pressure 132/85 01/19/2015 10:35 AM WINDOWS SERVER ADMINISTRATOR Pulse 112 01/19/2015 10:35 AM WINDOWS SERVER ADMINISTRATOR Temperature - - Respiratory Rate - - Oxygen Saturation - - Inhaled Oxygen Concentration - - Weight - - Height - - Body Mass Index - - documented in this encounter Progress Notes Edgar Alfredo MD - 01/19/2015 12:00 PM CST SUBJECTIVE: Stephani Parker is a 34 year old female who presents to clinic today for the following health issues: Suboxone followup STRESSED WITH CHILD STILL IN CHILDRENS CHILD DOING WELL HAS HAD HEART SURGERY STEPHANI TAKES CAB WITH KIDS EACH EVENING TO HOSPITAL NO RELAPSE TRIGGERS ON SUBUTEX; STILL BREAST FEEDING 2 YR OLD HATES SUBOXONE ; GIVES HER NIGHTMARES MAY NEED TO STAY ON SUBUTEX Status since last visit: Since last visit patient has been: stable. BUT VERY TIRED Intensity: ?? There has been: no craving. ?? Suboxone Dose: adequate. Progression of Symptoms: ?? Cues to use and relapse TRIGGERS: MINIMAL ?? Recovery program has been: ignored. Accompanying Signs & Symptoms: ?? Side Effects: none WITH SUBUTEX BUT NIGHTMARES WITH SUBOXONE Sobriety: ?? Status: no use since last [...] 3 times daily 42 tablet 0 ??? WELLBUTRIN SR 150 MG 12 hr tablet Take 1 tablet (150 mg) by mouth 2 times daily 60 tablet 1 ??? [START ON 02/15/2015] buprenorphine (SUBUTEX) 8 MG SUBL Take 0.5 tab 3 times daily 11 each 0 ??? Ferrous Sulfate (IRON) 325 (65 FE) MG tablet Take 1 tablet by mouth 2 times daily ??? DiphenhydrAMINE HCl (BENADRYL ALLERGY PO) Take by mouth as needed ??? OMEPRAZOLE PO Take by mouth daily ??? Venlafaxine HCl (EFFEXOR PO) Take by mouth 3 times daily ??? levothyroxine (SYNTHROID, LEVOTHROID) 125 MCG tablet Take 1 tablet by mouth daily ??? Atxsnufc-Qga-Kx-FA ( VITAMINS) 0.8 MG TABS Take 1 tablet by mouth daily 30 tablet 6 ??? Cholecalciferol (VITAMIN D) 2000 UNITS tablet Take 2,000 Units by mouth daily. 100 tablet 3 ??? [DISCONTINUED] VITAMINS PO Take by mouth. No Known Allergies Problem list, Medication list, Allergies, and Medical/Social/Surgical histories reviewed in [facility] andupdated as appropriate. ROS: OBJECTIVE: BP 132/85 mmHg Pulse 112 There is no weight on file to calculate BMI. ROS: Constitutional, HEENT, cardiovascular, pulmonary, gi and gu systems are negative, except as otherwise noted. BP 132/85 mmHg Pulse 112 EXAM: ROS: BP 132/85 mmHg Pulse 112 EXAM: GENERAL APPEARANCE: healthy, alert and no [...] orders placed or performed in visit on 01/19/15 (from the past 24 hour(s)) Drug abuse [...] Urine Positive ASSESSMENT: OPIOID DEPENDENCE , UNCOMPLICATED POST - PLAN: ICD-10-CM 1. Uncomplicated opioid dependence (HCC) F11.20 buprenorphine (SUBUTEX) 8 MG SUBL buprenorphine (SUBUTEX) 8 MG SUBL 2. Opiate dependence (HCC) F11.20 Drug abuse screen (NL, RW) Buprenorphine Qual Urine 3. Major depressive disorder, recurrent episode, moderate (HCC) F33.1 WELLBUTRIN SR 150 MG 12 hr tablet MEDICATIONS: Orders Placed This Encounter Medications ??? buprenorphine (SUBUTEX) 8 MG SUBL Sig: Take 0.5 tab 3 times daily Dispense: 42 tablet Refill: 0 ??? WELLBUTRIN SR 150 MG 12 hr tablet Sig: Take 1 tablet (150 mg) by mouth 2 times daily Dispense: 60 tablet Refill: 1 ??? buprenorphine (SUBUTEX) 8 MG SUBL Sig: Take 0.5 tab 3 times daily Dispense: 11 each Refill: 0 - Continue other medications without change FUTURE APPOINTMENTS: - Follow-up visit in 5 WEEKS Edgar Alfredo MD, MD [facility] OWS SERVER ADMINISTRATOR documented in this encounter Nursing Notes Suyapa Rodriguez, SUPERVISOR NAT[employer]AS PLANT - 01/19/2015 10:36 AM CST Chief Complaint Patient presents with ??? Recheck Medication Initial BP 132/85 mmHg Pulse 112 Estimated body mass index is 30.96 kg/(m^2) as calculated from the following: Height as of 01/07/13: 5' 5.5 (1.664 m). Weight as of 07/28/14: 189 lb (85.73 kg). BP completed using cuff size: large Kathee O'Eugene, BASS STRING WINDER, SUPERVISOR NATURAL GAS PLANT OWS SERVER ADMINISTRATOR documented in this encounter Plan of Treatment Upcoming Encounters Date Type Specialty Care Team Description 11/15/2021 Office Visit Wound Care Luis Camara, DPM [address] [place], [place] [phone] (Wo rk) documented as of this encounter Procedures Procedure Name Priority Date/Time Associated Diagnosis Comme nts BUPRENORPHINE QUAL Routine 01/19/2015 10:26 Uncomplicated opio id Results for this URINE AM WINDOWS SERVER ADMINISTRATOR dependence (H) procedure are in the results section. DRUG ABUSE SCREEN Routine 01/19/2015 10:26 Uncomplicated opioi d Results for this (NL, RW) AM WINDOWS SERVER ADMINISTRATOR dependence (H) procedure are in the results section. documented in this encounter Results Buprenorphine Qual Urine (01/19/2015 10:26 AM WINDOWS SERVER ADMINISTRATOR) Patholo gist Method Time Signature Buprenorphine Positive [facility] LAB Qual Urine Specimen Anatomical Collection Method Collection Time Receive d Time (Source) Location / / Volume Laterality Urine specimen 01/19/2015 10:26 5 (specimen) AM WINDOWS SERVER ADMINISTRATOR 10:32 AM WINDOWS SERVER ADMINISTRATOR Edgar Alfredo MD LAB - URINE ORDERABLES Performing Organization Address City/State/[place] [address] [facility] [address] [facility]J LAB Drug abuse screen (NL, RW) (01/19/2015 10:26 AM WINDOWS SERVER ADMINISTRATOR) Component Value Ref Test Analysis Performed Pathologis [...] Location / / Volume Laterality Urine specimen 01/19/2015 10:26 5 (specimen) AM WINDOWS SERVER ADMINISTRATOR 10:32 AM WINDOWS SERVER ADMINISTRATOR Edgar Alfredo MD LAB - URINE ORDERABLES Performing Organization Address City/State/[place] [address] [facility] [address] [address] [facility]J LAB documented in this encounter Visit Diagnoses Diagnosis Uncomplicated opioid dependence (H) - Pr imary Opioid type dependence, unspecified Major depressive disorder, recurrent epi sode, moderate (H) Major depressive disorder, recurrent epi sode, moderate documented in this encounter Care Teams Laminating Machine Feeder Relationship Specialty Start Date End Date System, Provider Not In PCP - General Clinic 08/12/14 07/13/16 documented as of this encounter
--- OUTSIDE RECORDS SUMMARY | 2021-11-10 00:47 | XMS_ITS | Encounter Summary ---
:1980 Author Organization [place] Address [address] [facility] [place] [address] Care Team Providers Name Role Phone System, Provider Not In Primary Care Provider Unavailable Reason for Visit Reason Onset Date Comments Recheck Medication Erroneous encounter-disregard 04/28/2015 Encounter Details Date Type Department Care Team Description 04/24/2015 Office Visit [facility] Edgar Alfredo NO SHOW ( Primary Dx); Clinic Ashly Gauthier MD ERRONEOUS ENCOUNTER--DISREGARD [address] [place] [phone] Social History Tobacco Use Types Packs/Day Years Used Date Current Every Day Smoker Cigarettes 0.1 10 Smokeless Tobacco: Never Used Comments: 5 cigarettes a day Alcohol Use Standard Drinks/Week Comments No 0 (1 standard drink = 0.6 oz pure alcoho l) Sex Assigned at Date Recorded Female 01/14/2020 10:57 AM PANEL INSTRUMENT REPAIRER documented as of this encounter Progress Notes Edgar Alfredo MD - 04/28/2015 10:05 PM CST This encounter was opened in error. Please disregard. L INSTRUMENT REPAIRER documented in this encounter Plan of Treatment Upcoming Encounters Date Type Specialty Care Team Description 11/15/2021 Office Visit Wound Care Luis Camara, [address] [place] [address] (Wo rk) documented as of this encounter Visit Diagnoses Diagnosis NO SHOW - Primary ERRONEOUS ENCOUNTER--DISREGARD documented in this encounter Care Teams Performing Artist Relationship Specialty Start Date End Date System, Provider Not In PCP - General Clinic 08/12/14 07/13/16 documented as of this encounter
--- OUTSIDE RECORDS SUMMARY | 2021-11-10 00:47 | XMS_ITS | Encounter Summary ---
:1980 Author Organization [place] Address [address] [facility] [address] Care Team Providers Name Role Phone System, Provider Not In Primary Care Provider Unavailable Reason for Visit Reason Onset Date Comments Medication Request 05/09/2015 Encounter Details Date Type Department Care Team Description 05/09/2015 Telephone [facility] Edgar Workman Ma rk, Medication Request [place] [address] [place] [phone] (Wo rk) Social History Tobacco Use Types Packs/Day Years Used Date Current Every Day Smoker Cigarettes 0.1 10 Smokeless Tobacco: Never Used Comments: 5 cigarettes a day Alcohol Use Standard Drinks/Week Comments No 0 (1 standard drink = 0.6 oz pure alcoho l) Sex Assigned at Date Recorded Female 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 documented as of this encounter Miscellaneous Notes Addendum Note - Suyapa Murray CMA - 05/10/2015 10:33 AM CDT Addended by: SUYAPA MURRAY on: 05/10/2015 10:33 AM Modules accepted: Medications Telephone Encounter - Suyapa Murray CMA - 05/10/2015 10:30 AM CDT Rx called in, pt notified Addendum Note - Edgar Workman MD - 05/10/2015 9:38 AM CDT Addended by: EDGAR WORKMAN on: 05/10/2015 09:38 AM Modules accepted: Orders Telephone Encounter - Edgar Workman MD - 05/10/2015 9:37 AM CDT Bridge ordered Please call in and let patient know Telephone Encounter - Vivian Spence CMA - 05/09/2015 3:14 PM CDT Incoming call from pt stating her son and she is having a hard time coping pt request for bridge until scheduled appt 05/16 please call pt back at [phone] Vivian Spence IPC [employer] Telephone Encounter - Edgar Workman MD - 05/09/2015 2:31 PM CDT Needs appointment , then I can do refill OK to add on 05/17/15 @10:45 Telephone Encounter - Myles Spence - 05/09/2015 12:50 PM CDT Pt states she is unable to make appt today due to in family. Requesting refill. documented in this encounter Plan of Treatment Upcoming Encounters Date Type Specialty Care Team Description 11/15/2021 Office Visit Wound Care Luis Camara, [address] [place] [address] (Wo rk) documented as of this encounter Visit Diagnoses Diagnosis Uncomplicated opioid dependence (H) - Pr imary Opioid type dependence, unspecified documented in this encounter Care Teams Rotary Kiln Operator Relationship Specialty Start Date End Date System, Provider Not In PCP - General Clinic 08/12/14 07/13/16 documented as of this encounter
--- OUTSIDE RECORDS SUMMARY | 2021-11-10 00:47 | XMS_ITS | Encounter Summary ---
:1980 Author Organization [place] Address [address] [facility] [place] [address] Care Team Providers Name Role Phone System, Provider Not In Primary Care Provider Unavailable Reason for Visit Reason Comments Recheck Medication Encounter Details Date Type Department Care Team Description 03/02/2015 Office Visit [facility] Edgar Alfredo Uncomplic ated opioid Clinic Ashly Gauthier MD dependence (H) (Primary [address]) [address] [place] [phone] Social History Tobacco Use Types Packs/Day Years Used Date Current Every Day Smoker Cigarettes 0.1 10 Smokeless Tobacco: Never Used Comments: 5 cigarettes a day Alcohol Use Standard Drinks/Week Comments No 0 (1 standard drink = 0.6 oz pure alcoho l) Sex Assigned at Date Recorded Female 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 documented as of this encounter Last Filed Vital Signs Vital Sign Reading Time Taken Comments Blood Pressure 133/87 03/02/2015 3:15 PM MANAGER COMMERCIAL Pulse 86 03/02/2015 3:15 PM MANAGER COMMERCIAL Temperature - - Respiratory Rate - - Oxygen Saturation - - Inhaled Oxygen Concentration - - Weight - - Height - - Body Mass Index - - documented in this encounter Progress Notes Edgar Alfredo MD - 03/02/2015 3:08 PM CST SUBJECTIVE: Stephani Parker is a 34 year old female who presents to clinic today for the following health issues: Suboxone followup Child discharged from [facility] now at home On subutex: her 2 year old and 3 month old 6 plus years of sobriety Status since last visit: Since last visit patient has been: doing well. Intensity: ?? There has been: no craving. ?? Suboxone Dose: adequate. 4mg TID Progression of Symptoms: ?? Cues to use and relapse ?? Recovery program has been: ignored. Accompanying Signs & Symptoms: ?? Side Effects: dry mouth, not a problem Sobriety: ?? Status: no use since last visit. ?? Drug Screen: obtained. Precipitating factors: ?? Triggers have been: non-existent. Alleviating factors: ?? Contact with sponsor has been: no sponsor. ?? Family and support system has been: helpful. Other Therapies Tried : ?? Patient has been going to recovery meetings:not at all. Problem list and histories reviewed & adjusted, [...] Take 0.5 tab 3 times daily 11 tablet 0 ??? WELLBUTRIN SR 150 MG 12 hr tablet Take 1 tablet (150 mg) by mouth 2 times daily 60 tablet 1 ??? buprenorphine (SUBUTEX) 8 MG SUBL Take [...] Take 1 tablet by mouth daily ??? Dnieltrn-Xct-Ua-FA ( VITAMINS) 0.8 MG TABS Take 1 tablet by mouth daily 30 tablet 6 ??? [DISCONTINUED] VITAMINS PO Take by mouth. ??? Cholecalciferol (VITAMIN D) 2000 UNITS tablet Take 2,000 Units by mouth daily. 100 tablet 3 No Known Allergies Problem list, Medication list, Allergies, and Medical/Social/Surgical histories reviewed in [facility] andupdated as appropriate. ROS: Constitutional, HEENT, cardiovascular, pulmonary, gi and gu systems are negative, except as otherwise noted. OBJECTIVE: BP 133/87 mmHg Pulse 86 There is no weight on file to calculate BMI. GENERAL: healthy, alert and no distress NECK: no adenopathy, no asymmetry, masses, or scars and thyroid normal to palpation RESP: lungs clear to auscultation - no rales, rhonchi or wheezes CV: regular rate and rhythm, normal S1 S2, no S3 or S4, no murmur, click or rub, no peripheral edemaand peripheral pulses strong ABDOMEN: soft, nontender, no hepatosplenomegaly, no masses and bowel sounds normal MS: no gross musculoskeletal defects noted, no edema Diagnostic Test Results: Results for orders placed or performed in visit on 03/02/15 (from the past 24 hour(s)) Drug abuse [...] Value Ref Range Buprenorphine Qual Urine Positive ASSESSMENT/PLAN: ICD-10-CM 1. Opiate dependence (HCC) F11.20 Drug abuse screen (NL, RW) Buprenorphine Qual Urine Follow up in 4 weeks DISCUSSED TAKING MORE THAN PRESCRIBED WHICH PATIENT DOES ON CERTAIN DAYS WHEN SHE IS SWEATY AND CAN'T SLEEP - SHE THINKS IT IS WITHDRAWAL ; ADVISED NOT LIKELY AND NEEDS TO TAKE MEDICATIONS DIRECTED PATIENT SEEN WITH DR. PIMENTEL. I AGREE WITH HER NOTE WHICH WAS REVIEWED AGREE WITH PLAN CHANGES MADE IN NOTE NECESSARY Edgar Alfredo M.D. Edgar Alfredo MD [facility] GER COMMERCIAL documented in this encounter Nursing Notes Suyapa Rodriguez CMA - 03/02/2015 3:15 PM CST Chief Complaint Patient presents with ??? Recheck Medication Initial BP 133/87 mmHg Pulse 86 Estimated body mass index is 30.96 kg/(m^2) as calculated from thefollowing: Height as of 13: 5' 5.5 (1.664 m). Weight as of 07/28/14: 189 lb (85.73 kg). BP completed using cuff size: catalino Rodriguez MLT, CMA GER COMMERCIAL documented in this encounter Plan of Treatment Upcoming Encounters Date Type Specialty Care Team Description 11/15/2021 Office Visit W[facility] Care Luis Camara DPM [address] [place] [phone] (Wo rk) documented as of this encounter Procedures Procedure Name Priority Date/Time Associated Diagnosis Comme nts BUPRENORPHINE QUAL Routine 03/02/2015 2:59 Uncomplicated opioi d Results for this URINE PM MANAGER COMMERCIAL dependence (H) procedure are in the results section. DRUG ABUSE SCREEN Routine 03/02/2015 2:59 Uncomplicated opioid Results for this (NL, RW) PM MANAGER COMMERCIAL dependence (H) procedure are in the results section. documented in this encounter Results Buprenorphine Qual Urine (03/02/2015 2:59 PM MANAGER COMMERCIAL) Patholo gist Method Time Signature Buprenorphine Positive [facility] LAB Qual Urine Specimen Anatomical Collection Method Collection Time Receive d Time (Source) Location / / Volume Laterality Urine specimen 03/02/2015 2:59 PM 016 3:05 (specimen) MANAGER COMMERCIAL PM MANAGER COMMERCIAL Edgar lAfredo MD LAB - URINE ORDERABLES Performing Organization Address City/State/[place] [address] [facility] Building [address] LAB Drug abuse screen (NL, RW) (03/02/2015 2:59 PM MANAGER COMMERCIAL) Component Value Ref Test Analysis Performed Pathologis [...] Location / / Volume Laterality Urine specimen 03/02/2015 2:59 PM 016 3:05 (specimen) MANAGER COMMERCIAL PM MANAGER COMMERCIAL Edgar Alfredo MD LAB - URINE ORDERABLES Performing Organization Address City/State/[place] [address] [facility] [address] [address] [facility] LAB documented in this encounter Visit Diagnoses Diagnosis Uncomplicated opioid dependence (H) - Pr imary Opioid type dependence, unspecified documented in this encounter Care Teams Call Out Clerk Relationship Specialty Start Date End Date System, Provider Not In PCP - General Clinic 08/12/14 07/13/16 documented as of this encounter
--- OUTSIDE RECORDS SUMMARY | 2021-11-10 00:47 | XMS_ITS | Encounter Summary ---
:1980 Author Organization [place] Address [address] [facility] [address] Care Team Providers Name Role Phone System, Provider Not In Primary Care Provider Unavailable Reason for Visit Reason Onset Date Comments Medication Question 06/14/2015 Subx Bridge Encounter Details Date Type Department Care Team Description 06/14/2015 Telephone [facility] Edgar Alfredo, [facility] ication Question Clinic Ashly VÁSQUEZ (Subx Bridge) [address] [place] [phone] (Wo rk) Social History Tobacco Use Types Packs/Day Years Used Date Current Every Day Smoker Cigarettes 0.1 10 Smokeless Tobacco: Never Used Comments: 5 cigarettes a day Alcohol Use Standard Drinks/Week Comments No 0 (1 standard drink = 0.6 oz pure alcoho l) Sex Assigned at Date Recorded Female 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 Please follow up. Pt contact info: [phone] Script can be sent to [facility] Thank you, Dora Merchant [facility] Telephone Encounter - Dora Merchant - 06/14/2015 11:41 AM CDT Incoming call from pt, documented in this encounter Plan of Treatment Upcoming Encounters Date Type Specialty Care Team Description 11/15/2021 Office Visit Wound Care Luis Camara, [place] [address] [place] [phone] (Wo rk) documented as of this encounter Visit Diagnoses Diagnosis Uncomplicated opioid dependence (H) - Pr imary Opioid type dependence, unspecified documented in this encounter Care Teams Supply Clerk Relationship Specialty Start Date End Date System, Provider Not In PCP - General Clinic 08/12/14 07/13/16 documented as of this encounter
--- OUTSIDE RECORDS SUMMARY | 2021-11-10 00:48 | XMS_ITS | Encounter Summary ---
:1980 Author Organization [place] Address [facility] [place] [address] Care Team Providers Name Role Phone Edgar Alfredo MD Primary Care Provider Reason for Visit Reason Comments Recheck Medication Encounter Details Date Type Department Care Team Description 07/21/2014 Office Visit [facility] Edgar Alfredoplic ated opioid dependence (H) (Primary Dx); Clinic Ashly Gauthier MD Opiate dependence (H) [address] [place] [phone] Social History Tobacco Use Types Packs/Day Years Used Date Current Every Day Smoker Cigarettes 0.1 10 Smokeless Tobacco: Never Used Comments: 5 cigarettes a day Alcohol Use Standard Drinks/Week Comments No 0 (1 standard drink = 0.6 oz pure alcoho l) Sex Assigned at Date Recorded Female 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 Since last visit patient has been: struggling. DRUG SCREEN POSITIVE FOR OPIATES ADMITS TO TAKING A VICODIN TO GARZA OFF WITHDRAWAL SHE RAN OUT OF SUBOXONE ADMITS TO TAKING MORE SUBOXONE THAN PRESCRIBED STILL CANNOT EXPLAIN COCAINE IN URINE LAST TIME ADVISED NEED TO RETURN NEXT WEEK There has been: moderate craving. Cues to use and relapse triggers have been: moderate. Recovery program has been: ignored. Contact with sponsor has been: no sponsor. Family and support system has been: neutral. Patient has been going to recovery meetings:not at all. Sobriety: patient has relapsed Drug Screen: obtained; POSITIVE FOR OPIATES Suboxone Dose: adequate Side Effects: none Plan for Suboxone for next period: no change BUT ONLY 1 WEEK ORDERED Questions answered: YES Issues discussed: NEED FOR HONESTY; NOT KNOWING HOW COCAINE GOT IN HER URINE IS NOT BELEIVABLE Next visit: 1 WEEK 20 minutes were spent with patient with more than 50% of time spent in counseling and coordination of care; DISCUSSED RELAPSE AT LENGTH documented in this encounter Nursing Notes Suyapa Rodriguez CMA - 07/21/2014 3:04 PM CDT Chief Complaint Patient presents with ??? Recheck Medication Initial BP 118/75 mmHg Pulse 96 Estimated body mass index is 25.06 kg/(m^2) as calculated from thefollowing: Height as of 01/07/13: 5' 5.5 (1.664 m). Weight as of 01/07/13: 153 lb (69.4 kg). BP completed using cuff size: large Suyapa Rodriguez MLT, CMA documented in this encounter Plan of Treatment Upcoming Encounters Date Type Specialty Care Team Description 11/15/2021 Office Visit Wound Care Luis Camara DPM [address] [place] [address] (Wo rk) documented as of this encounter Procedures Procedure Name Priority Date/Time Associated Comments Diagnosis BUPRENORPHINE QUAL Routine 07/21/2014 2:45 PM Opiate dependenc e Results for this URINE CDT (H) procedure are i n the results section. DRUG ABUSE SCREEN (NL, Routine 07/21/2014 2:45 PM Opiate depen dence Results for this RW) CDT (H) procedure are i n the results section. documented in this encounter Results Buprenorphine Qual Urine (07/21/2014 2:45 PM CDT) Patholo gist Method Time Signature Buprenorphine Negative [facility] LAB Qual Urine Specimen Anatomical Collection Method Collection Time Receive d Time (Source) Location / / Volume Laterality Urine specimen 07/21/2014 2:45 PM 015 2:50 (specimen) CDT PM CDT Edgar Alfredo MD LAB - URINE ORDERABLES Performing Organization Address City/State/[place] [address] [facility] Building [address] [facility] LAB (ABNORMAL) Drug abuse screen (NL, RW) (07/21/2014 2:45 PM CDT) Component Value Ref Test Analysis [...] is 1000 ng/mL or less. Oxycodone Qual Positive NEG [facility] LAB Urine Cutoff for a positive Oxycodone is greater than 100 ng/mL . This is an unconfirmed screening result to be used for medical purpose s only. (A) Specimen Anatomical Collection Method Collection Time Receive d Time (Source) Location / / Volume Laterality Urine specimen 07/21/2014 2:45 PM 015 2:50 (specimen) CDT PM CDT Edgar Alfredo MD LAB - URINE ORDERABLES Performing Organization Address City/State/[facility] [place] [address] [facility] Building [address] [facility] LAB documented in this encounter Visit Diagnoses Diagnosis Uncomplicated opioid dependence (H) - Pr imary Opioid type dependence, unspecified documented in this encounter Care Teams Language Path Relationship Specialty Start Date End Date Edgar Alfredo MD PCP - General Family Practice 04/13/12 08/11/[address] [place] [phone] documented as of this encounter
--- OUTSIDE RECORDS SUMMARY | 2021-11-10 00:48 | XMS_ITS | Encounter Summary ---
:1980 Author Organization [place] Address [address] [facility] [place] [address] Care Team Providers Name Role Phone Edgar Alfredo MD Primary Care Provider Reason for Visit Reason Comments Recheck Medication Encounter Details Date Type Department Care Team Description 11/09/2013 Office Visit [facility] Edgar Alfredo de pendence (H) Clinic Ashly Gauthier MD [address] [place] [phone] Social History Tobacco Use Types Packs/Day Years Used Date Current Every Day Smoker Cigarettes 0.1 10 Smokeless Tobacco: Never Used Comments: 5 cigarettes a day Alcohol Use Standard Drinks/Week Comments No 0 (1 standard drink = 0.6 oz pure alcoho l) Sex Assigned at Date Recorded Female 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 Since last visit patient has been: struggling. SEEMS TO BE STRESSED, CONFUSED WAS UNSURE WHEN APPOINTMENT SHOULD BE, WHEN SHE HAD SUBOXONE FILLED PHARMACY REPORTS PATIENT PICKED UP 1 MONTH SUPPLY ON 09/30 AND 10/22; SHOULD HAVE ENOUGH UNTIL 11/30; AFTER PATIENT LEFT SHE REPORTED SHE WILL BE OUT 11/21/13 - TAKING MORE THAN PRESCRIBED There has been: moderate craving. Cues to use and relapse triggers have been: mild. Recovery program has been: weak. Contact with sponsor has been: no sponsor. Family and support system has been: helpful. Patient has been going to recovery meetings:regularly. Sobriety: no use since last visit Drug Screen: obtained Suboxone Dose: adequate Side Effects: none Plan for Suboxone for next period: no change Questions answered: YES Issues discussed: CONFUSION RE: DOSE, HOW TO TAKE SUBOXONE Next visit: OK TO ADD ON 11/22/13 TO DISCUSS; NO REFILL TODAY 20 minutes were spent with patient with more than 50% of time spent in counseling and coordination of care; Discussed with patient many issues of addiction, relapse, and establishing a solid recovery program. documented in this encounter Nursing Notes Suyapa Rodriguez CMA - 11/09/2013 10:57 AM CDT Chief Complaint Patient presents with ??? Recheck Medication Initial BP 100/59 Pulse 101 Estimated body mass index is 25.06 kg/(m^2) as calculated from the following: Height as of 01/07/13: 5' 5.5 (1.664 m). Weight as of 01/07/13: 153 lb (69.4 kg). BP completed using cuff size: miguelangel Rodriguez MLT, CMA documented in this encounter Plan of Treatment Upcoming Encounters Date Type Specialty Care Team Description 11/15/2021 Office Visit Wound Care Luis Camara, [place] [address] [place] [address] (Wo rk) documented as of this encounter Procedures Procedure Name Priority Date/Time Associated Comments Diagnosis BUPRENORPHINE QUAL Routine 11/09/2013 10:43 Opiate dependence Results for this URINE AM CDT (H) procedure are i n the results section. DRUG ABUSE SCREEN (NL, Routine 11/09/2013 10:43 Opiate depende nce Results for this RW) AM CDT (H) procedure are i n the results section. documented in this encounter Results Buprenorphine Qual Urine (11/09/2013 10:43 AM CDT) Patholo gist Method Time Signature Buprenorphine Positive [facility] LAB Qual Urine Specimen Anatomical Collection Method Collection Time Receive d Time (Source) Location / / Volume Laterality Urine specimen 11/09/2013 10:43 4 (specimen) AM CDT 10:48 AM CDT Edgar Alfredo MD LAB - URINE ORDERABLES Performing Organization Address City/State/[place] [address] [facility] [address] [address] LAB Drug abuse screen (NL, RW) (11/09/2013 10:43 AM CDT) Component Value Ref Test Analysis [...] Location / / Volume Laterality Urine specimen 11/09/2013 10:43 4 (specimen) AM CDT 10:48 AM CDT Edgar Alfredo MD LAB - URINE ORDERABLES Performing Organization Address City/State/[place] [address] [facility] [address] [facility] LAB documented in this encounter Visit Diagnoses Diagnosis Opiate dependence (H) Opioid type dependence, unspecified documented in this encounter Care Teams Agriculture Research Director Relationship Specialty Start Date End Date Edgar Alfredo MD PCP - General Family Practice 04/13/12 08/11/[address] [place] [address] documented as of this encounter
--- OUTSIDE RECORDS SUMMARY | 2021-11-10 00:48 | XMS_ITS | Encounter Summary ---
:1980 Author Organization [place] Address [facility] [place] [address] Care Team Providers Name Role Phone System, Provider Not In Primary Care Provider Unavailable Reason for Referral - Closed Specialty Diagnoses / Procedures Referred By Contact Refer red To Contact Diagnoses Unspecified complication of , antepartum Angelique Brewer MD [address] [facility] [address] [place] [address] Referral ID Status Reason Start Date Expiration Date Visits Requ ested Visits Authorized [id number] Closed 08/12/2014 02/08/2015 1 1 Encounter Details Date Type Department Care Team Description 08/12/2014 [facility] Only [facility] Angelique Brewer MD Unspecified Maternal [address] [facility] [address] , [place] [address] (Primary Dx) [address] [phone] [place], [place] [address] (Work) [phone] Social History Tobacco Use Types Packs/Day Years Used Date Current Every Day Smoker Cigarettes 0.1 10 Smokeless Tobacco: Never Used Comments: 5 cigarettes a day Alcohol Use Standard Drinks/Week Comments No 0 (1 standard drink = 0.6 oz pure alcoho l) Sex Assigned at Date Recorded Female 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/2020 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 documented as of this encounter Plan of Treatment Upcoming Encounters Date Type Specialty Care Team Description 11/15/2021 Office Visit Wound Care Luis Camara, [place] [address] [place] [address] (Wo rk) Scheduled Referrals Name Type Priority Associated Diagnoses Order S chedule [facility] Referral Routine Unspecified complicatio n of Ordered: 08/12/2014 REFERRAL- , antepartum documented as of this encounter Visit Diagnoses Diagnosis Unspecified complication of , a ntepartum - Primary documented in this encounter Care Teams Seafood Service Team Member Relationship Specialty Start Date End Date System, Provider Not In PCP - General Clinic 08/12/14 07/13/16 documented as of this encounter
--- OUTSIDE RECORDS SUMMARY | 2021-11-10 00:48 | XMS_ITS | Encounter Summary ---
:1980 Author Organization [place] Address [address] [facility] [place] [address] Care Team Providers Name Role Phone Edgar Alfredo MD Primary Care Provider Reason for Visit Reason Onset Date Comments Recheck Medication Erroneous encounter-disregard 11/11/2013 Encounter Details Date Type Department Care Team Description 11/08/2013 Office Visit [facility] Edgar Alfredo ERRONEOUS Clinic Ashly Gauthier MD ENCOUNTER--DISREGARD [address] [place] (Primary Dx) [address] [place] [phone] Social History Tobacco Use Types Packs/Day Years Used Date Current Every Day Smoker Cigarettes 0.1 10 Smokeless Tobacco: Never Used Comments: 5 cigarettes a day Alcohol Use Standard Drinks/Week Comments No 0 (1 standard drink = 0.6 oz pure alcoho l) Sex Assigned at Date Recorded Female 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 Please disregard. documented in this encounter Plan of Treatment Upcoming Encounters Date Type Specialty Care Team Description 11/15/2021 Office Visit Wound Care [place], Luis Lex, [place] [address] [place], [place] [address] (Wo rk) documented as of this encounter Visit Diagnoses Diagnosis ERRONEOUS ENCOUNTER--DISREGARD - Primary documented in this encounter Care Teams Risk Engineer Relationship Specialty Start Date End Date Edgar Alfredo MD PCP - General Family Practice 04/13/12 08/11/[address] [place] [address] [address] [place] [phone] documented as of this encounter
--- OUTSIDE RECORDS SUMMARY | 2021-11-10 00:48 | XMS_ITS | Encounter Summary ---
:1980 Author Organization [facility] Address [address] [place] [address] Care Team Providers Name Role Phone System, Provider Not In Primary Care Provider Unavailable Reason for Referral - Closed Specialty Diagnoses / Procedures Referred By Contact Refer red To Contact Diagnoses Other known or suspected abnormality, not elsewhere classified, affecting management of mother, antepartum condition or complication Sintia Rasheed RN Referral ID Status Reason Start Date Expiration Date Visits Requ ested Visits Authorized [id number] Closed 08/12/2014 02/08/2015 1 1 Encounter Details Date Type Department Care Team Description 08/12/[address] [facility] Sintia Rasheed , incidental Maternal GENARO Ghotra (Primary Dx) [facility] [address] [place], [place] [address] Social History Tobacco Use Types Packs/Day Years Used Date Current Every Day Smoker Cigarettes 0.1 10 Smokeless Tobacco: Never Used Comments: 5 cigarettes a day Alcohol Use Standard Drinks/Week Comments No 0 (1 standard drink = 0.6 oz pure alcoho l) Sex Assigned at Date Recorded Female 01/14/2020 10:57 AM [employer] documented as of this encounter Plan of Treatment Upcoming Encounters Date Type Specialty Care Team Description 11/15/2021 Office Visit Wound Care Luis Camara DPM [address] [place], [place] [id number] (Wo rk) Scheduled Referrals Name Type Priority Associated Diagnoses Order S erendira [facility] Office Visit Referral Routine , incidental We ekly for 1 Occurrences starting 2014 until 08/13/2015 documented as of this encounter Results [facility] US Comprehensive Single (08/24/2014 11:29 AM CDT) Anatomical Region Laterality Modality Ultrasound Specimen (Source) Anatomical Collection Method Collection Time Re ceived Time Location / / Volume Laterality 08/24/2014 10:55 AM CDT Impressions 08/26/2014 3:51 PM CDT IMPRESSION Single intrauterine at 24 1/7 weeks gestation by 11 week ultrasound. Sonographic biometry agrees with gestational age predicted by prior ultrasound. 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 The remainder of anatomy was adequately visualized and appeared normal. Narrative 08/26/2014 3:51 PM CDT Comprehensive Pat. Name: STEPHANI MCCORMICK Study Date: 08/24 10:55am Pat. NO: [id number] Referring ??: KATY ROCHE Site: [facility] Furnace Puncher: Carlos Gordon RDMS : 1980 Age: 35 INDICATION Congenital Heart Defect. HISTORY General History ? 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 + hepatitis C ? hypothyroidism ? history of opiate use. METHOD Transabdominal ultrasound examination. Nithya ood view. Nicole . Number of fetuses: 1. DATING ? Date ?Details ?Gest. age ?JEAN MARIE LMP ? Cycle: LMP date not known Stated Dating ? 05/24/2014 ?GA: 11 w + 0 d, by per 1st Trimester U/S ? 24 w + 1 d ? 12/13/2014 U/S ? 08/24/2014 ?based upon AC, BPD, Femur, HC ? 23 w + 4 d ? 12/17/2014 Assigned dating ?Dating performed on 08/24/2014, based on the stated dating (on 05/24/2014 by per 1st ? 24 w + 1 d ? 12/13/2014 ? Trimester U/S) GENERAL EVALUATION Cardiac activity: present. FHR 145 bpm. movements: visualized. Presentation: cephalic. Placenta: Placental site: anterior, no p revia. Umbilical cord: 3 vessel cord. Amniotic fluid: normal. BIOMETRY Main Biometry: BPD ? 57.9 ?mm ? 23w 5d ? Hadlock OFD ? 79.2 ?mm ? 24w 0d ? Nicolaides HC ?220.9 ?mm ?24w 1d ? Hadlock AC ?184.4 ?mm ?23w 2d ? Hadlock Femur ? 40.9 ?mm ?23w 2d ? Hadlock Cerebellum tr ? 26.5 ?mm ?24w 2d ? Nicolaides CM ? 5.6 ?mm ? Humerus ? 38.6 ?mm ? 23w 5d ?Pauly Weight Calculation: EFW ? 589 ? g ? 31% ?23w 0d ? Gildardo EFW (lb,oz) ? 1 lb 5 ?oz Calculated by ?Hadlock (HC-AC-FL) Head / Face / Neck Biometry: Nnps ?7.9 ?mm ? Nasal bone ?7.2 ?mm ? Amniotic Fluid / FHR: AF MVP ?6.3 ? cm ? MARCELLA ? 21.9 ?cm ? FHR ?145 ? bpm ? ANATOMY The following structures were visualized with normal appearance: Head ? Head size. Head shape: Dolicocephalic. Brain ? Lateral cerebral ventricles. Cisterna magna. Midline falx. Choroid plexus. Thalami. Cavum septi pellucidi. Cerebellum. Face ? Profile. Orbits. Nose. Lips. Neck ? Nuchal fold. Spine ?Cervical spine. Thoracic spine. Lumbar spine. Sacral spine. Thorax ? Diaphragm: No apparent defect. Abdominal wall ? Umbilical cord insertion site. Stomach ?Stomach size and situs appear normal. GI tract ?Liver: Situs normal. Bowel: No hyperechogenic bowel. Kidneys ? Kidneys appear normal bilaterally. Bladder ?Bladder appears normal in size and shape. Upper extrem. ?Both upper extremities are seen and appear normal. Lower extrem. ?Both lower extremities are seen and appear normal. The following structures were abnormal: Heart ? Four chamber view: hypoplastic right heart. Right ventricular outflow tract. Gender: male. MATERNAL STRUCTURES Cervix ?Visualized, Appears Closed. ? Cervical length 3.08 cm. Right Ovary ?Not visualized. Left Ovary ?Not visualized. CONSULTATION Type: [facility]ENTER CONSULTATION. Dear DR. ROCHE, Thank you for requesting a consultation on your patient, MS. MCCORMICK, for a possible congenital heart defect. 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 Dr. Ruiz reviewed the heart defect as well as the expected course of treatment with the patient in detail today. We discussed with the patient that the r emainder of anatomy appears normal. We discussed that congential heart defects can occur as sporadic defects but in some cases are due to chromosomal abnorm alities or genetic syndromes. We discussed that the risk for Down syndrome, specifically, given the patient's age and the presence of a congenital heart defect is 1/13. We discussed the availability of cell-free DNA screening which would give 98-99% detection for the common aneuploidies as well as detection of some chromosomal mi crodeletion syndromes. We discussed the availability of amniocentesis which would be diagnostic for all chromosomal abnormalities but carries a 1/500 risk f or complications of loss (or at this gestational age for labor). The patient is not interested in genetic screening or testing at this point but requested info rmation about these tests today and will consider having screening or testing at a future visit. We discussed that delivery will need to be at [facility] where NICU and Pediatric Cardiology as well as Pediatric Cardiothoracic Surgery services area available. As such, we will begin seeing the patient here for h er care in 3-4 weeks at the time of her next ultrasound. Follow-up echocardiograms are planned at 28 and 32 weeks. Our hope would be for delivery at 39-40 weeks so that the fetus is of a good size and maturity in preparation for post-kathy cardiac surgery. Cardiology is expecting staged cardiac surgeries with ultimately a single-ventr icle palliation. The patient is understandably overwhelme d by the information given at today's visit. We encouraged her to call if she has more questions prior to her next visit. In the coming weeks we will also be arranging f or her to have a Neonatology consultation and NICU/PICU tour. A copy of this consultation is being sen t to your office. RECOMMENDATION We discussed the findings on today's ul rasound with the patient. See consultation section for further cou nseling. A repeat ultrasound has been scheduled i n 3-4 weeks to reevaluate growth and anatomy as well as for follow-up echocardiogram. Return to primary provider for continued care. Thank-you for the opportunity to partici isabel in the care of this patient. If you have questions regarding today's evaluation or if we can be of further service, please contact the [facility]. anomalies may be present but not detected. The patient was seen for an outpatient c onsultation beyond the performance and interpretation of the ultrasound. The majority of time (>50%) was spent on counseling and coordination of care of this patient and /or family members. Approximate rqlr-sk-xdpm time was 30 min utes. Procedure Note Breanna Coleman MD - 09/10/2016Format ting of this note might be different from the original. Comprehensive Pat. Name:Elizabeth MCCORMICK Date:08/25/19 10:55am Pat. NO: [id number] MD:YURIDIA ROCHE [facility] RD[facility] :1980Age:35 INDICATION Congenital Heart Defect. 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 METHOD Transabdominal ultrasound examination. Nithya rachel view. Nicole . Number of fetuses: 1. DATING Date Details Gest. age JEAN MARIE LMP Cycle: LMP date not known Stated Dating 05/24/2014 GA: 11 w + 0 d, by per 1st Trimester U/S 24 w + 1 d 12/13/2014 U/S 08/24/2014 based upon AC, BPD, Femur, HC 23 w + 4 d 12/17/2014 Assigned dating Dating performed on 2014, based on the stated dating (on 05/24/2014 by per 24 w + 1 d 12/13/2014 Trimester U/S) GENERAL EVALUATION Cardiac activity: present. FHR 145 bpm. movements: visualized. Presentation: cephalic. Placenta: Placental site: anterior, no p revia. Umbilical cord: 3 vessel cord. Amniotic fluid: normal. BIOMETRY Main Biometry: BPD 57.9 mm 23w 5d Hadlock OFD 79.2 mm 24w 0d Nicolaides HC 220.9 mm 24w 1d Hadlock AC 184.4 mm 23w 2d Hadlock Femur 40.9 mm 23w 2d Hadlock Cerebellum tr 26.5 mm 24w 2d Nicolaides CM 5.6 mm Humerus 38.6 mm 23w 5d [facility] Weight Calculation: EFW 589 g 31% 23w 0d Gildardo EFW (lb,oz) 1 lb 5 oz Calculated by Flora (HC-AC-FL) Head / Face / Neck Biometry: Nnps 7.9 mm Nasal bone 7.2 mm Amniotic Fluid / FHR: AF MVP 6.3 cm MARCELLA 21.9 cm FHR 145 bpm ANATOMY The following structures were visualized with normal appearance: Head Head size. Head shape: Dolicocephal ic. Brain Lateral cerebral ventricles. Ciste rna magna. Midline falx. Choroid plexus. Thalami. Cavum septi pellucidi. Cerebellum. Face Profile. Orbits. Nose. Lips. Neck Nuchal fold. Spine Cervical spine. Thoracic spine. Dionna mbar spine. Sacral spine. Thorax Diaphragm: No apparent defect. Abdominal wall Umbilical cord insertion site. Stomach Stomach size and situs appear no rmal. GI tract Liver: Situs normal. Bowel: No hyperechogenic bowel. Kidneys Kidneys appear normal bilaterall y. Bladder Bladder appears normal in size a nd shape. Upper extrem. Both upper extremities are seen and appear normal. Lower extrem. Both lower extremities are seen and appear normal. The following structures were abnormal: Heart Four chamber view: hypoplastic rig ht heart. Right ventricular outflow tract. Gender: male. MATERNAL STRUCTURES Cervix Visualized, Appears Closed. Cervical length 3.08 cm. Right Ovary Not visualized. Left Ovary Not visualized. CONSULTATION Type: DIAGNOSIS & TREATMENT CENTER CONSULTATION. Dear DR. ROCHE, Thank you for requesting a consultation on your patient, MS. MCCORMICK, for a possible congenital heart defect. 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 Dr. Ruiz reviewed the heart defect as well as the expected course of treatment with the patient in detail today. We discussed with the patient that the r emainder of anatomy appears normal. We discussed that congential heart defects can occur as sporadic defects but in some cases are due to chromosomal abnorm alities or genetic syndromes. We discussed that the risk for Down syndrome, specifically, given the patient's age and the presence of a congenital heart defect is 1/. We discussed the availability of cell-free DNA screening which would give 98-99% detection for the common aneuploidies as well as detection of some chromosomal mi crodeletion syndromes. We discussed the availability of amniocentesis which would be diagnostic for all chromosomal abnormalities but carries a 1/500 risk f or complications of loss (or at this gestational age for labor). The patient is not interested in genetic screening or testing at this point but requested info rmation about these tests today and will consider having screening or testing at a future visit. We discussed that delivery will need to be at [facility] where NICU and Pediatric Cardiology as well as Pediatric Cardiothoracic Surgery services area available. As such, we will begin seeing the patient here for h er care in 3-4 weeks at the time of her next ultrasound. Follow-up echocardiograms are planned at 28 and 32 weeks. Our hope would be for delivery at 39-40 weeks so that the fetus is of a good size and maturity in preparation for post-kathy cardiac surgery. Cardiology is expecting staged cardiac surgeries with ultimately a single-ventr icle palliation. The patient is understandably overwhelme d by the information given at today's visit. We encouraged her to call if she has more questions prior to her next visit. In the coming weeks we will also be arranging f or her to have a Neonatology consultation and NICU/PICU tour. A copy of this consultation is being sen t to your office. RECOMMENDATION We discussed the findings on today's ult rasound with the patient. See consultation section for further cou nseling. A repeat ultrasound has been scheduled i n 3-4 weeks to reevaluate growth and anatomy as well as for follow-up echocardiogram. Return to primary provider for continued care. Thank-you for the opportunity to partici hall in the care of this patient. If you have questions regarding today's evaluation or if we can be of further service, please contact the [facility]. anomalies may be present but not detected. The patient was seen for an outpatient c onsultation beyond the performance and interpretation of the ultrasound. The majority of time (>50%) was spent on counseling and coordination of care of this patient and /or family members. Approximate pkik-is-awvv time was 30 min utes. IMPRESSION Single intrauterine at 24 1/7 weeks gestation by 11 week ultrasound. Sonographic biometry agrees with gestational age predicted by prior ultrasound. 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 The remainder of anatomy was adequately visualized and appeared normal. Breanna Coleman MD [facility] US ORDERABLES Echo Complete-Peds Cardiology (08/24/2014 10:16 AM CDT) Anatomical Region Laterality Modality Ultrasound Specimen (Source) Anatomical Location Collection Method / Collectio n Time Received Time / Laterality Volume Narrative 08/25/2014 1:37 PM CDT PEDIATRIC ECHOCARDIOGRAM [facility]? s [facility] ? Gestational Age: 24 weeks Due Date: 11/18 ?? : Delivery Site: [facility] ??Tech: [email or web address] Diagnosis: Heart defect ? CONCLUSION: ?? echocardiogram performed at 24 wee ks gestational age. ??Pulmonary atresia, intact ventricular septum, hypo plastic right heart syndrome. ?? There is possibly coronary artery sinuso ids present. ??Good single left ventricular function. ??Trivial tricuspi d insufficiency. ??Heart rate was regular. ??No hydrops seen. ??The flow a cross the ductus arteriosus was retrograde to the branch pulmonary arter ies. Recommendation is to have a echo f ollow-up at 28 weeks and 32 weeks gestational age. ??I have reviewed resul ts with the family extensively. ?? The plan is to deliver at [facility]. ??Expecting a full term delivery and starting Prostaglandin at and obtaining cardiology consultation and transthoracic echocardi ogram at the time of . ??I have reviewed the surgical intervention which includes initially a BT shunt followed by Yfn procedure and a Fontan completion. ?? M-Mode Report 1. heart rate was regular at 147 beats/min. ?? 2-Dimensional Report echocardiography performed at 24 w eeks gestational age. ??Long and short axis and four chamber views are ob tained. ??Situs is normal with a left sided cardiac apex, abdominal aorta and stomach. ??Aortic and ??Mitral valve motions are normal. ??Pulmonary at resia. ??The tricuspid valve is hypoplastic. ??A right sided superior an d inferior vena cava enter the right atrium. ??The flap of the foramen ovale opens into the left atrium. ?? Left and right atrial sizes are normal. ??There is atrioventricular concordance. Hypoplastic right ventricle appears to be hypertrophied. ?? Left ventricular size and function appea rs to be normal. ??No VSD is seen in this study. ??There is ventriculoarte rial concordance. ??The great arteries are normally related. ??The aor tic arch appears to be normal. ?? Ductus arteriosus has a retrograde flow to the branch pulmonary arteries. ?? Branch pulmonary arteries appear to be g ood sized. ??The cardiac diagnosis is consistent with pulmonary atresia and intact ventricular septum with possible coronary artery sinusoids. ??Si ngleton . ??Vertex presentation. ??No hydrops. ??Biparietal diameter is 5.8 cm. ??Estimated gestational age is 23 weeks and 6 days. ?? Doppler Report Color flow and spectral Doppler are perf ormed. ??There is trivial tricuspid regurgitation. ??No mitral insufficiency . ??Normal flows are recorded across the left ventricular outflow tract and a cross the aortic valve at 0.75 m/sec and ductus arteriosus is 0.75 m/se c. ??At least 2 pulmonary veins return to the left atrium. ??Umbilical a rtery, umbilical venous Doppler flow appears to be laminar. ??On any fet al echocardiogram you cannot rule out small ASD, small VSD, mild coarctati on of the aorta, coronary artery anomalies, bicuspid aortic valve and min or anomalies of the systemic pulmonary venous connections. Ezra Rodríguez MD-[phone] ? Kyung Sheets MD-Pager [phone] Carlton Olivera MD-Pager ??[phone] or [phone] ? Blane Seay MD-Pager [phone] ? Carina Ruiz MD-Pager [phone] Tk Spain MD-Pager # [phone] Loretta Roberts MD Pager [phone] Brice Lloyd MD-Pager [phone] Breanna Coleman MD [facility] P[facility] ECHO ORDERABLES documented in this encounter Visit Diagnoses Diagnosis , incidental - Primary state, incidental , incidental state, incidental , incidental state, incidental documented in this encounter Care Teams [employer] [place] [facility] Relationship Specialty Start Date End Date System, Provider Not In PCP - General Clinic 08/12/14 07/13/16 documented as of this encounter
--- OUTSIDE RECORDS SUMMARY | 2021-11-10 00:48 | XMS_ITS | Encounter Summary ---
:1980 Author Organization [place] Address [facility] [place] [address] Care Team Providers Name Role Phone Edgar Alfredo MD Primary Care Provider Reason for Visit Reason Comments Recheck Medication Encounter Details Date Type Department Care Team Description 06/23/2014 Office Visit [facility] Edgar Alfredo Cocaine a buse, unspecified (Primary Dx); Clinic Ashly Gauthier MD Opiate dependence (H) [address] [place] [address] [place] [phone] Social History Tobacco Use Types Packs/Day Years Used Date Current Every Day Smoker Cigarettes 0.1 10 Smokeless Tobacco: Never Used Comments: 5 cigarettes a day Alcohol Use Standard Drinks/Week Comments No 0 (1 standard drink = 0.6 oz pure alcoho l) Sex Assigned at Date Recorded Female 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 Since last visit patient has been: stable. NOTHING HAS CHANGED STRONGLY DENIES COCAINE USE WILL GET CONFIRMATION DISCUSSED AT LENGTH There has been: no craving. Cues to use and relapse triggers have been: non-existent. Recovery program has been: weak. Contact with sponsor has been: no sponsor. Family and support system has been: helpful. Patient has been going to recovery meetings:not at all. Sobriety: no use since last visit UNLESS DRUG SCREEN SHOWS OTHERWISE Drug Screen: obtained Suboxone Dose: adequate Side Effects: none Plan for Suboxone for next period: no change Questions answered: YES Issues discussed: DRUG SCREEN Next visit: 1 MONTH 20 minutes were spent with patient with more than 50% of time spent in counseling and coordination of care; Discussed with patient many issues of addiction, relapse, and establishing a solid recovery program. documented in this encounter Nursing Notes Suyapa Rodriguez CMA - 06/23/2014 2:45 PM CDT Chief Complaint Patient presents with ??? Recheck Medication Initial BP 126/83 Pulse 92 Estimated body mass index is 25.06 kg/(m^2) as calculated from the following: Height as of 01/07/13: 5' 5.5 (1.664 m). Weight as of 01/07/13: 153 lb (69.4 kg). BP completed using cuff size: large Suyapa Rodriguez MLT, CMA documented in this encounter Plan of Treatment Upcoming Encounters Date Type Specialty Care Team Description 11/15/2021 Office Visit Wound Care Luis Camara DPM [address] [place] [address] (Wo rk) documented as of this encounter Procedures Procedure Name Priority Date/Time Associated Comments Diagnosis COCAINE QUANTITATIVE Routine 06/23/2014 4:42 PM Cocaine abuse, Results for this URINE CDT unspecified procedure are i n the results section. BUPRENORPHINE QUAL Routine 06/23/2014 2:35 PM Opiate dependenc e Results for this URINE CDT (H) procedure are i n the results section. DRUG ABUSE SCREEN (NL, Routine 06/23/2014 2:35 PM Opiate depen dence Results for this RW) CDT (H) procedure are i n the results section. documented in this encounter Results Cocaine quantitative urine (06/23/2014 4:42 PM CDT) athologist Signature Cocaine Quant 5,509 LAB Urine Comment: Unit: ng/ml Benzoylecgonine Qntu 515 LAB Comment: Unit: ng/ml (Note) Analysis for cocaine and its primary met abolite, benzoylecgonine, is performed by gas chr omatography with mass spectrometry (GC/MS). Results are r eported to the limit of quantitation of the assay. Analysis performed by [employer], [place] [address] Specimen Anatomical Collection Method Collection Time Receive d Time (Source) Location / / Volume Laterality Urine specimen 06/23/2014 4:42 PM 015 4:47 (specimen) CDT PM CDT Edgar Alfredo MD LAB - URINE ORDERABLES Performing Organization Address City/[facility] [place] [address] [facility] [address] [place], [place] [address]e [address] LAB Buprenorphine Qual Urine (06/23/2014 2:35 PM CDT) Patholo gist Method Time Signature Buprenorphine Positive LAB Qual Urine Specimen Anatomical Collection Method Collection Time Receive d Time (Source) Location / / Volume Laterality Urine specimen 06/23/2014 2:35 PM 015 2:40 (specimen) CDT PM CDT Edgar Alfredo MD LAB - URINE ORDERABLES Performing Organization Address [facility] [place] [address] [facility] Building [address] LAB (ABNORMAL) Drug abuse screen (NL, RW) (06/23/2014 2:35 PM CDT) Component Value Ref Test Analysis Performed Pathologis t Range Method Time At Signature Methamphetamine Negative NEG LAB Qual Urine Cutoff for a negative methamphetamine is 1000 ng/mL or les s. Cocaine Qual Urine Positive NEG RJ LAB Cutoff for a positive cocai ne is greater than 300 ng/mL. This is an unconfirmed screening result to be used for medical purposes only. (A) Cannabinoids Qual Negative NEG RJ LAB Urine [...] Location / / Volume Laterality Urine specimen 06/23/2014 2:35 PM 015 2:40 (specimen) CDT PM CDT Edgar Alfredo MD LAB - URINE ORDERABLES Performing Organization Address City/State/Z[place] [address] [facility] Building [address] RJ LAB documented in this encounter Visit Diagnoses Diagnosis Cocaine abuse, unspecified - Primary Opiate dependence (H) Opioid type dependence, unspecified documented in this encounter Care Teams Gold Burnisher Relationship Specialty Start Date End Date Edgar Alfredo MD PCP - General Family Practice 04/13/12 08/11/[address] [place] [address] documented as of this encounter
--- OUTSIDE RECORDS SUMMARY | 2021-11-10 00:48 | XMS_ITS | Encounter Summary ---
:1980 Author Organization [place] Address [address] [facility] [place] [address] Care Team Providers Name Role Phone Edgar Alfredo MD Primary Care Provider Reason for Visit Reason Comments Recheck Medication Encounter Details Date Type Department Care Team Description 05/05/[address] 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 Since last visit patient has been: stable. DISCUSSED AT LENGTH HOW SUBOXONE HELPS DISCUSSED TRYING TO REDUCE DOSE TO 10 MG SHE AGREES MOST OF HER RELUCTANCE IS PSYCHOLOGICAL FEAR OF WITHDRAWAL NO CRAVING There has been: no craving. Cues to use and relapse triggers have been: non-existent. Recovery program has been: ignored. Contact with sponsor has been: no sponsor. Family and support system has been: helpful. Patient has been going to recovery meetings:not at all. Sobriety: no use since last visit Drug Screen: obtained Suboxone Dose: adequate Side Effects: none Plan for Suboxone for next period: no change Questions answered: YES Issues discussed: DOSE OF SUBUTEX; CONSIDER CHANGE TO SUBOXONE Next visit: 1 MONTH 20 minutes were spent with patient with more than 50% of time spent in counseling and coordination of care; Discussed with patient many issues of addiction, relapse, and establishing a solid recovery program. documented in this encounter Nursing Notes Suyapa Rodriguez CMA - 05/05/2014 3:03 PM CDT Chief Complaint Patient presents with ??? Recheck Medication Initial BP 111/71 Pulse 88 Estimated body mass index is 25.06 kg/(m^2) as calculated from the following: Height as of 01/07/13: 5' 5.5 (1.664 m). Weight as of 01/07/13: 153 lb (69.4 kg). BP completed using cuff size: large Suyapa Rodriguez MLT, CMA documented in this encounter Plan of Treatment Upcoming Encounters Date Type Specialty Care Team Description 11/15/2021 Office Visit Wound Care Luis Camara DPM [address] [place] [address] (Wo rk) documented as of this encounter Procedures Procedure Name Priority Date/Time Associated Comments Diagnosis BUPRENORPHINE QUAL Routine 05/05/2014 2:55 PM Opiate dependenc e Results for this URINE CDT (H) procedure are i n the results section. DRUG ABUSE SCREEN (NL, Routine 05/05/2014 2:55 PM Opiate depen dence Results for this RW) CDT (H) procedure are i n the results section. documented in this encounter Results Buprenorphine Qual Urine (05/05/2014 2:55 PM CDT) Patholo gist Method Time Signature Buprenorphine Positive RJ LAB Qual Urine Specimen Anatomical Collection Method Collection Time Receive d Time (Source) Location / / Volume Laterality Urine specimen 05/05/2014 2:55 PM 015 3:00 (specimen) CDT PM CDT Edgar Alfredo MD LAB - URINE ORDERABLES Performing Organization Address City/State/[place] [address] [facility] Building [address] LAB Drug abuse screen (NL, RW) (05/05/2014 2:55 PM CDT) Component Value Ref Test [...] Location / / Volume Laterality Urine specimen 05/05/2014 2:55 PM 015 3:00 (specimen) CDT PM CDT Edgar Alfredo MD LAB - URINE ORDERABLES Performing Organization Address City/State/[place] [address] [facility] Building [address] RJ LAB documented in this encounter Visit Diagnoses Diagnosis Opiate dependence (H) Opioid type dependence, unspecified documented in this encounter Care Teams Mining Speculator Relationship Specialty Start Date End Date Edgar Alfredo MD PCP - General Family Practice 04/13/12 08/11/[address] [place] [address] documented as of this encounter
--- OUTSIDE RECORDS SUMMARY | 2021-11-10 00:48 | XMS_ITS | Encounter Summary ---
:1980 Author Organization [place] Address [facility] [place] [address] Care Team Providers Name Role Phone System, Provider Not In Primary Care Provider Unavailable Reason for Visit (Routine) - Closed Specialty Diagnoses / Procedures Referred By Contact Refer red To Contact Perinatology / Diagnoses * ID INS Zz Ur Peds Echo Lab Cardiology Procedures ECH COMPLETE* [address] [place] [address] Referral ID Status Reason Start Date Expiration Date Visits Requ ested Visits Authorized [id number] Closed 08/24/2014 08/24/2015 1 1 Encounter Details Date Type Department Care Team Description 08/24/2014 Hospital Encounter [facility] Echo/EKG Breanna Coleman MD [address] [place] [address] , [address] [facility] [place] [address] Social History Tobacco Use Types Packs/Day Years Used Date Current Every Day Smoker Cigarettes 0.1 10 Smokeless Tobacco: Never Used Comments: 5 cigarettes a day Alcohol Use Standard Drinks/Week Comments No 0 (1 standard drink = 0.6 oz pure alcoho l) Sex Assigned at Date Recorded 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 tabletIndications: Vitamin B12 deficiency (non anaemic) levothyroxine (SYNTHROID, Take 1 tablet by 0 01/31/2018 LEVOTHROID) 125 MCG tablet mouth daily melatonin 1 MG TABS Take 1 mg by mouth 0 10/13/2014 At Bedtime OMEPRAZOLE PO Take by mouth 0 11/30/19 17 daily Take 1 tablet by 30 tablet 6 12/10/2012 08/30/19 17 [id number] mouth daily ( VITAMINS) 0.8 MG TABSIndications: Opiate dependence (H) Venlafaxine HCl (EFFEXOR Take by mouth 3 0 06/22/2015 PO) times daily WELLBUTRIN SR 150 MG 12 hr Take 1 tablet (150 60 tablet 5 1 01/19/2015 tabletIndications: mg) by mouth 2 Moderate major depression times daily (H) documented as of this encounter Plan of Treatment Upcoming Encounters Date Type Specialty Care Team Description 11/15/2021 Office Visit Wound Care Luis Camara, [place] [address] [place] [address] (Wo rk) documented as of this encounter Procedures Procedure Name Priority Date/Time Associated Diagnosis Comme nts ECHO Routine 08/24/2014 10:16 AM , Results for this COMPLETE* CDT incidental procedure are i n the results section. documented in this encounter Results Echo Complete-Peds Cardiology (08/24/2014 10:16 AM CDT) Anatomical Region Laterality Modality Ultrasound Specimen (Source) Anatomical Location Collection Method / Collectio n Time Received Time / Laterality Volume Narrative 08/25/2014 1:37 PM CDT PEDIATRIC ECHOCARDIOGRAM [facility] ? Gestational Age: 24 weeks Due Date: 11/18 ?? : Delivery Site: [facility] ??Tech: [email or web address] Diagnosis: Heart defect ? CONCLUSION: [...] ?? The plan is to deliver at [facility]. ??Expecting a full term delivery and starting [...] the systemic pulmonary venous connections. Ezra Rodríguez MD-[phone] ? Kyung Sheets MD-Pager [phone] Carlton Olivera MD-Pager ??[phone] or [phone] ? Blane Seay MD-Pager [phone] ? Carina Ruiz MD-Pager [phone] Tk Spain MD-Pager # [phone] Loretta Roberts MD Pager [phone] Brice Lloyd MD-Pager [phone] Breanna Coleman MD CV PEDS ECHO ORDERABLES documented in this encounter Visit Diagnoses Diagnosis , incidental state, incidental documented in this encounter Care Teams Birth Certificate Clerk Relationship Specialty Start Date End Date System, Provider Not In PCP - General Clinic 08/12/14 07/13/16 documented as of this encounter
--- OUTSIDE RECORDS SUMMARY | 2021-11-10 00:48 | XMS_ITS | Encounter Summary ---
:1980 Author Organization [place] Address [facility] [place] [address] Care Team Providers Name Role Phone Edgar Alfredo MD Primary Care Provider Reason for Visit Reason Onset Date Comments Appointment 11/09/2013 Pt requesting a soon er Appointment Encounter Details Date Type Department Care Team Description 11/09/2013 Telephone [facility] Edgar Alfredo, [place] ointment (Pt Clinic Ashly VÁSQUEZ requesting a sooner [address] [place] Appointment) [address] [place] [address] (Wo rk) Social History Tobacco Use Types Packs/Day Years Used Date Current Every Day Smoker Cigarettes 0.1 10 Smokeless Tobacco: Never Used Comments: 5 cigarettes a day Alcohol Use Standard Drinks/Week Comments No 0 (1 standard drink = 0.6 oz pure alcoho l) Sex Assigned at Date Recorded Female 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 Alfredo--Next available is 11/29. Pt states she will run out of medication on 11/21 and requesting to come in before that date. documented in this encounter Plan of Treatment Upcoming Encounters Date Type Specialty Care Team Description 11/15/2021 Office Visit Wound Care Luis Camara DPM [address] [place] [address] (Wo rk) documented as of this encounter Visit Diagnoses Not on filedocumented in this encounter Care Teams Cassandra Consultant Relationship Specialty Start Date End Date Edgar Alfredo MD PCP - General Family Practice 04/13/12 08/11/[address] [place] [address] documented as of this encounter
--- OUTSIDE RECORDS SUMMARY | 2021-11-10 00:48 | XMS_ITS | Encounter Summary ---
:1980 Author Organization [place] Address [address] [facility] [address] Care Team Providers Name Role Phone Edgar Alfredo MD Primary Care Provider Reason for Visit Reason Onset Date Comments Medication Request 11/15/2013 subutex Encounter Details Date Type Department Care Team Description 11/15/2013 Telephone [facility] Edgar Alfredo, [facility] ication Request Clinic Ashly VÁSQUEZ (subutex) [address] [place] [phone] (Wo rk) Social History Tobacco Use Types Packs/Day Years Used Date Current Every Day Smoker Cigarettes 0.1 10 Smokeless Tobacco: Never Used Comments: 5 cigarettes a day Alcohol Use Standard Drinks/Week Comments No 0 (1 standard drink = 0.6 oz pure alcoho l) Sex Assigned at Date Recorded Female 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 Call back # [phone]. Suyapa Rodriguez MLT, DON documented in this encounter Plan of Treatment Upcoming Encounters Date Type Specialty Care Team Description 11/15/2021 Office Visit Wound Care Luis Camara, [place] [address] [place] [address] (Wo rk) documented as of this encounter Visit Diagnoses Diagnosis Opiate dependence (H) Opioid type dependence, unspecified documented in this encounter Care Teams Senior Foreman Relationship Specialty Start Date End Date Edgar Alfredo MD PCP - General Family Practice 04/13/12 08/11/[address] [address] documented as of this encounter
--- OUTSIDE RECORDS SUMMARY | 2021-11-10 00:48 | XMS_ITS | Encounter Summary ---
:1980 Author Organization [place] Address [facility] [place] [address] Care Team Providers Name Role Phone System, Provider Not In Primary Care Provider Unavailable Reason for Visit - Closed Specialty Diagnoses / Procedures Referred By Contact Refer red To Contact Diagnoses Unspecified complication of , antepartum Breanna Coleman MD [address] [place] [address] Referral ID Status Reason Start Date Expiration Date Visits Requ ested Visits Authorized [id number] Closed 08/24/2014 08/24/2015 1 1 Encounter Details Date Type Department Care Team Description 08/24/2014 Office Visit [facility] Breanna Coleman MD [address] [place] [address] Unspecified Maternal Goldie Edwards GC [address] [place] [address] complication of [facility] , a ntepartum [place] [address] [place], [place] [address] Social History Tobacco Use Types Packs/Day Years Used Date Current Every Day Smoker Cigarettes 0.1 10 Smokeless Tobacco: Never Used Comments: 5 cigarettes a day Alcohol Use Standard Drinks/Week Comments No 0 (1 standard drink = 0.6 oz pure alcoho l) Sex Assigned at Date Recorded Female 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 Met with Stephani briefly at the request of Dr. Coleman following her ultrasound and echocardiogram which confirmed a congenital heart defect ( see reports for details). We reviewed increased risks for chromosomal abnormalities including Down syndrome. We reviewed options of Verifi blood test or amniocentesis. Patient was quite overwhelmed with today's findings. Pamphlets provided to patient. Patient will have follow up ultrasound/echo in 3-4 weeks and will be planning to deliver here. We would be happy to facilitate additional screening/testing if the patient decides. Contact information provided to patient. Time spent: 10 min Goldie Edwards MS, [facility] Certified Genetic Counselor [phone] documented in this encounter Plan of Treatment Upcoming Encounters Date Type Specialty Care Team Description 11/15/2021 Office Visit Wound Care Luis Camara DPM [address] [place] [address] (Wo rk) documented as of this encounter Visit Diagnoses Diagnosis Unspecified complication of , a ntepartum documented in this encounter Care Teams Police Chief Relationship Specialty Start Date End Date System, Provider Not In PCP - General Clinic 08/12/14 07/13/16 documented as of this encounter
--- OUTSIDE RECORDS SUMMARY | 2021-11-10 00:48 | XMS_ITS | Encounter Summary ---
:1980 Author Organization [place] Address [facility] [place] [address] Care Team Providers Name Role Phone Edgar Alfredo MD Primary Care Provider Reason for Visit Reason Onset Date Comments Formulary Issue 06/08/2014 buprenorphine (SUBUT EX) 8 MG SUBL Encounter Details Date Type Department Care Team Description 06/08/2014 Telephone [facility] Edgar Alfredo, For [place] corner Issue Clinic Ashly VÁSQUEZ (buprenorphine [address] [place] (SUBUTEX) 8 MG SUBL) [address] [place] [address] (Wo rk) Social History Tobacco Use Types Packs/Day Years Used Date Current Every Day Smoker Cigarettes 0.1 10 Smokeless Tobacco: Never Used Comments: 5 cigarettes a day Alcohol Use Standard Drinks/Week Comments No 0 (1 standard drink = 0.6 oz pure alcoho l) Sex Assigned at Date Recorded Female 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 Telephone Encounter - Suyapa Rodriguez CMA - 06/08/2014 2:20 PM CDT was waiting for necessary info from patient or Dr. Alfredo. Pt called back. PA faxed to [facility]. Telephone Encounter - Vivian Spence CMA - 06/08/2014 2:08 PM CDT Incoming call from patient stating a PA is needed for buprenorphine (SUBUTEX) 8 MG SUBL Vivian Spence [facility] Frame Maker documented in this encounter Plan of Treatment Upcoming Encounters Date Type Specialty Care Team Description 11/15/2021 Office Visit Wound Care Luis Camara, [place] [address] [place] [address] (Wo rk) documented as of this encounter Visit Diagnoses Not on filedocumented in this encounter Care Teams Public Area Attendant Relationship Specialty Start Date End Date Edgar Alfredo MD PCP - General Family Practice 04/13/12 08/11/[address] [facility] [address] [place] [address] documented as of this encounter
--- OUTSIDE RECORDS SUMMARY | 2021-11-10 00:48 | XMS_ITS | Encounter Summary ---
:1980 Author Organization [place] Address [address] [facility] [place] [address] Care Team Providers Name Role Phone Edgar Alfredo MD Primary Care Provider Reason for Visit Reason Comments Recheck Medication Encounter Details Date Type Department Care Team Description 01/18/2014 Office Visit [facility] Edgar Alfredo de pendence (H) Clinic Ashly Gauthier MD [address] [place] [phone] Social History Tobacco Use Types Packs/Day Years Used Date Current Every Day Smoker Cigarettes 0.1 10 Smokeless Tobacco: Never Used Comments: 5 cigarettes a day Alcohol Use Standard Drinks/Week Comments No 0 (1 standard drink = 0.6 oz pure alcoho l) Sex Assigned at Date Recorded Female 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 Since last visit patient has been: stable. STAYING ON SUBOXONE MOSTLY TO AVOID WITHDRAWAL RATHER THAN OUT OF FEAR OF RELAPSE; DISCUSSED; ADVISED IT TAKES A LONG TIME TO TAPER OFF SLOWLY. STILL NOT READY TO REDUCE DOSE There has been: no craving. Cues to [...] no change Questions answered: YES Issues discussed: BEGINNING TO TAPER SOON Next visit: 1 MONTH 20 minutes were spent with patient with more than 50% of time spent in counseling and coordination of care; Discussed with patient many issues of addiction, relapse, and establishing a solid recovery program. ER HANGER documented in this encounter Nursing Notes Suyapa Rodriguez CMA - 01/18/2014 10:56 AM CST Chief Complaint Patient presents with ??? Recheck Medication Initial BP 117/82 Pulse 90 Estimated body mass index is 25.06 kg/(m^2) as calculated from the following: Height as of 01/07/13: 5' 5.5 (1.664 m). Weight as of 01/07/13: 153 lb (69.4 kg). BP completed using cuff size: large Suyapa Rodriguez MLT, CMA ER HANGER documented in this encounter Plan of Treatment Upcoming Encounters Date Type Specialty Care Team Description 11/15/2021 Office Visit Wound Care Luis Camara DPM [address] [place] [phone] (Wo rk) documented as of this encounter Procedures Procedure Name Priority Date/Time Associated Comments Diagnosis BUPRENORPHINE QUAL Routine 01/18/2014 10:48 Opiate dependence Results for this URINE AM GUTTER HANGER (H) procedure are i n the results section. DRUG ABUSE SCREEN (NL, Routine 01/18/2014 10:48 Opiate depende nce Results for this RW) AM GUTTER HANGER (H) procedure are i n the results section. documented in this encounter Results Buprenorphine Qual Urine (01/18/2014 10:48 AM GUTTER HANGER) Patholo gist Method Time Signature Buprenorphine Positive RJ LAB Qual Urine Specimen Anatomical Collection Method Collection Time Receive d Time (Source) Location / / Volume Laterality Urine specimen 01/18/2014 10:48 4 (specimen) AM GUTTER HANGER 10:53 AM GUTTER HANGER Edgar Alfredo MD LAB - URINE ORDERABLES Performing Organization Address City/State/[place] [address] [facility] Building [address] RJ LAB (ABNORMAL) Drug abuse screen (NL, RW) (01/18/2014 10:48 AM GUTTER HANGER) Component Value Ref Test Analysis Performed Pathologis [...] 300 ng/mL or less. PCP Qual Urine Positive NEG LAB EFFEXOR Rx MAY CAUSE FALSE POSITIVE Cutoff for a positive PCP is greater than 25 ng/mL. This is an unconfirmed screening result to be used for medical purposes only. (A) Amphetamine Qual Negative NEG LAB Urine Cutoff for a negative amphetamine is 1000 ng/mL or less. Oxycodone Qual Negative NEG LAB Urine Cutoff for a negative Oxycodone is 100 ng/mL or less. Specimen Anatomical Collection Method Collection Time Receive d Time (Source) Location / / Volume Laterality Urine specimen 01/18/2014 10:48 4 (specimen) AM GUTTER HANGER 10:53 AM GUTTER HANGER Egdar Alfredo MD LAB - URINE ORDERABLES Performing Organization Address City/State/[place] [address] [facility] Building [address] LAB documented in this encounter Visit Diagnoses Diagnosis Opiate dependence (H) Opioid type dependence, unspecified documented in this encounter Care Teams Manager Of Tax Relationship Specialty Start Date End Date Edgar Alfredo MD PCP - General Family Practice 04/13/12 08/11/[address] [place] [phone] documented as of this encounter
--- OUTSIDE RECORDS SUMMARY | 2021-11-10 00:48 | XMS_ITS | Encounter Summary ---
:1980 Author Organization [place] Address [address] [facility] [place] [address] Care Team Providers Name Role Phone Edgar Alfredo MD Primary Care Provider Reason for Visit Reason Comments Recheck Medication Encounter Details Date Type Department Care Team Description 02/15/2014 Office Visit [facility] Edgar Alfredo de pendence (H) Clinic Ashly Gauthier MD [address] [place] [phone] Social History Tobacco Use Types Packs/Day Years Used Date Current Every Day Smoker Cigarettes 0.1 10 Smokeless Tobacco: Never Used Comments: 5 cigarettes a day Alcohol Use Standard Drinks/Week Comments No 0 (1 standard drink = 0.6 oz pure alcoho l) Sex Assigned at Date Recorded Female 01/14/2020 10:57 AM TREE TRIMMER HELPER documented as of this encounter Last Filed Vital Signs Vital Sign Reading Time Taken Comments Blood Pressure 130/86 02/15/2014 11:30 AM TREE TRIMMER HELPER Pulse 87 02/15/2014 11:30 AM TREE TRIMMER HELPER Temperature - - Respiratory Rate - - Oxygen Saturation - - Inhaled Oxygen Concentration - - Weight - - Height - - Body Mass Index - - documented in this encounter Progress Notes Edgar Alfredo MD - 02/15/2014 1:24 PM CST Stephani Parker is here for a periodic Suboxone follow-up. Since last visit patient has been: stable. LITTLE HAS CHANGED QUIET SAHIL NO QUESTIONS THIS MONTH DOES NOT WANT TO REDUCE DOSE UNTIL SPRING There has been: no craving. Cues to [...] no change Questions answered: YES Issues discussed: WHEN TO BEGIN WEAN IT WILL TAKE YEARS TO GET OFF Next visit: 1 MONTH 20 minutes were spent with patient with more than 50% of time spent in counseling and coordination of care; Discussed with patient many issues of addiction, relapse, and establishing a solid recovery program. TRIMMER HELPER documented in this encounter Nursing Notes Suyapa Rodriguez CMA - 02/15/2014 11:30 AM CST Chief Complaint Patient presents with ??? Recheck Medication Initial BP 130/86 Pulse 87 Estimated body mass index is 25.06 kg/(m^2) as calculated from the following: Height as of 01/07/13: 5' 5.5 (1.664 m). Weight as of 01/07/13: 153 lb (69.4 kg). BP completed using cuff size: large Suyapa Rodriguez MLT, CMA TRIMMER HELPER documented in this encounter Plan of Treatment Upcoming Encounters Date Type Specialty Care Team Description 11/15/2021 Office Visit Wound Care Luis Camara DPM [address] [place] [phone] (Wo rk) documented as of this encounter Procedures Procedure Name Priority Date/Time Associated Comments Diagnosis BUPRENORPHINE QUAL Routine 02/15/2014 11:22 Opiate dependence Results for this URINE AM TREE TRIMMER HELPER (H) procedure are i n the results section. DRUG ABUSE SCREEN (NL, Routine 02/15/2014 11:22 Opiate depende nce Results for this RW) AM TREE TRIMMER HELPER (H) procedure are i n the results section. documented in this encounter Results Buprenorphine Qual Urine (02/15/2014 11:22 AM TREE TRIMMER HELPER) Patholo gist Method Time Signature Buprenorphine Positive RJ LAB Qual Urine Specimen Anatomical Collection Method Collection Time Receive d Time (Source) Location / / Volume Laterality Urine specimen 02/15/2014 11:22 4 (specimen) AM TREE TRIMMER HELPER 11:27 AM TREE TRIMMER HELPER Edgar Alfredo MD LAB - URINE ORDERABLES Performing Organization Address City/State/[place] [address] [facility] Building [address] LAB Drug abuse screen (NL, RW) (02/15/2014 11:22 AM TREE TRIMMER HELPER) Component Value Ref Test Analysis Performed Pathologis [...] Location / / Volume Laterality Urine specimen 02/15/2014 11:22 12/30/201 4 (specimen) AM TREE TRIMMER HELPER 11:27 AM TREE TRIMMER HELPER Edgar Alfredo MD LAB - URINE ORDERABLES Performing Organization Address City/State/[place] [address] [facility] Building [address] RJ LAB documented in this encounter Visit Diagnoses Diagnosis Opiate dependence (H) Opioid type dependence, unspecified documented in this encounter Care Teams Labor Law Professor Relationship Specialty Start Date End Date Edgar Alfredo MD PCP - General Family Practice 04/13/12 08/11/[address] [place] [phone] documented as of this encounter
--- OUTSIDE RECORDS SUMMARY | 2021-11-10 00:48 | XMS_ITS | Encounter Summary ---
:1980 Author Organization [place] Address [address] [place] [address] Care Team Providers Name Role Phone Edgar Alfredo MD Primary Care Provider Reason for Visit Reason Onset Date Comments Refill Request 06/07/2014 Encounter Details Date Type Department Care Team Description 06/07/2014 Telephone [facility] Nithya Alfredo MD Refill Request [place] [address] [place], [place] [address] [phone] [place] [phone] Social History Tobacco Use Types Packs/Day Years Used Date Current Every Day Smoker Cigarettes 0.1 10 Smokeless Tobacco: Never Used Comments: 5 cigarettes a day Alcohol Use Standard Drinks/Week Comments No 0 (1 standard drink = 0.6 oz pure alcoho l) Sex Assigned at Date Recorded Female 01/14/2020 10:57 AM ARTIST AND REPERTOIRE MANAGER documented as of this encounter Miscellaneous Notes Telephone Encounter - Suyapa Rodriguez CMA - 06/07/2014 4:41 PM CDT Per verbal order from Dr. Sayda lundberg called to thong Sauer on . Telephone Encounter - Suyapa Rodriguez CMA - 06/07/2014 2:38 PM CDT Patient thought appt last was actually today. Rescheduled for 06/23/14. Out of meds, needs bridge. Telephone Encounter - Vivian Spence CMA - 06/07/2014 2:20 PM CDT Pending Prescriptions: Disp Refills buprenorphine (SUBUTEX) 8 MG SUBL 45 tab*0 Sig: Take 1.5 tab daily Vivian Spence, [facility] Booth Cleaner documented in this encounter Plan of Treatment Upcoming Encounters Date Type Specialty Care Team Description 11/15/2021 Office Visit Wound Care Luis Camara, [place] [address] [place] [address] (Wo rk) documented as of this encounter Visit Diagnoses Diagnosis Opiate dependence (H) - Primary Opioid type dependence, unspecified documented in this encounter Care Teams Him Coder Relationship Specialty Start Date End Date Edgar Alfredo MD PCP - General Family Practice 04/13/12 08/11/[address] [facility] [address] [place] [phone] documented as of this encounter
--- OUTSIDE RECORDS SUMMARY | 2021-11-10 00:48 | XMS_ITS | Encounter Summary ---
:1980 Author Organization [place] Address [address] [facility] [place] [address] Care Team Providers Name Role Phone Edgar Alfredo MD Primary Care Provider Reason for Visit Reason Onset Date Comments Recheck Medication Erroneous encounter-disregard 06/02/2014 Encounter Details Date Type Department Care Team Description 06/02/2014 Office Visit [facility] Edgar Alfredo ERRONEOUS Clinic Ashly Gauthier MD ENCOUNTER--DISREGARD [address] [place] (Primary Dx) [address] [place] [phone] Social History Tobacco Use Types Packs/Day Years Used Date Current Every Day Smoker Cigarettes 0.1 10 Smokeless Tobacco: Never Used Comments: 5 cigarettes a day Alcohol Use Standard Drinks/Week Comments No 0 (1 standard drink = 0.6 oz pure alcoho l) Sex Assigned at Date Recorded Female 01/14/2020 10:57 AM TRAVEL MONEY ADVISOR documented as of this encounter Progress Notes Edgar Alfredo MD - 06/02/2014 5:44 PM CDT This encounter was opened in error. Please disregard. documented in this encounter Plan of Treatment Upcoming Encounters Date Type Specialty Care Team Description 11/15/2021 Office Visit Wound Care [place], Luis Lex, [place] [address] [place], [place] [phone] (Wo rk) documented as of this encounter Visit Diagnoses Diagnosis ERRONEOUS ENCOUNTER--DISREGARD - Primary documented in this encounter Care Teams Car Rental Deliverer Relationship Specialty Start Date End Date Edgar Alfredo MD PCP - General Family Practice 04/13/12 08/11/[address] [place] [address] [address] [place] [phone] documented as of this encounter
--- OUTSIDE RECORDS SUMMARY | 2021-11-10 00:48 | XMS_ITS | Encounter Summary ---
:1980 Author Organization [place] Address [address] [facility] [place] [address] Care Team Providers Name Role Phone System, Provider Not In Primary Care Provider Unavailable Reason for Visit Reason Onset Date Comments Clinic Care Coordination - Follow-up 08/12/2014 Encounter Details Date Type Department Care Team Description 08/12/2014 Telephone [facility] Vivian Duncan, Clinic Care Coordination Maternal Medicine RN - [facility] [address] [place], [place] [phone], [place] [address] Social History Tobacco Use Types Packs/Day Years Used Date Current Every Day Smoker Cigarettes 0.1 10 Smokeless Tobacco: Never Used Comments: 5 cigarettes a day Alcohol Use Standard Drinks/Week Comments No 0 (1 standard drink = 0.6 oz pure alcoho l) Sex Assigned at Date Recorded Female 01/14/2020 10:57 AM COUNTER CASER documented as of this encounter Miscellaneous Notes Telephone Encounter - Vivian Duncan - 08/12/2014 4:06 PM CDT Patient had requested that a patient health care liaison from [employer] call her to answer some of her questions. Stephani expressed that the ultrasound that she had today at [facility] showed abnormalities of the heart. The patient sounded very anxious about this and asked for statistics on how babies do with similar findings, how to treat this, and what the worst case scenerio would be. This sign writer letterer or painter was unable to give her any information about these; there has been no formal diagnosis. Stephani has an appointment set up for August 24 for a echo, comprehensive ultrasound, and [employer] consult at [facility]. Encouraged patient to write down questions that she thinks of between now and then and bring them with her. Stephani asked what the heart rate was in the ultrasound today and this was provided to her (142 bpm per U/S report). She also was told that, according to the ultrasound report, there were noother anatomical abnormalities noticed, which provided her with reassurance. She expressed feel ing regular movement, which made her feel better as well. She had no further questions at the end of this call. Vivian Duncan RN documented in this encounter Plan of Treatment Upcoming Encounters Date Type Specialty Care Team Description 11/15/2021 Office Visit Wound Care Luis Camara DPM [address] [place] [phone] (Wo rk) documented as of this encounter Visit Diagnoses Not on filedocumented in this encounter Care Teams Bulk Mail Clerk Relationship Specialty Start Date End Date System, Provider Not In PCP - General Clinic 08/12/14 07/13/16 documented as of this encounter
--- OUTSIDE RECORDS SUMMARY | 2021-11-10 00:48 | XMS_ITS | Encounter Summary ---
:1980 Author Organization [place] Address [facility] [place] [address] Care Team Providers Name Role Phone Edgar Alfredo MD Primary Care Provider Reason for Visit Reason Comments Recheck Medication Encounter Details Date Type Department Care Team Description 07/28/2014 Office Visit [facility] Edgar Alfredo Uncomplic ated opioid dependence (H) (Primary Dx); Clinic Ashly Gauthier MD Opiate dependence (H) [address] [place] [phone] Social History Tobacco Use Types Packs/Day Years Used Date Current Every Day Smoker Cigarettes 0.1 10 Smokeless Tobacco: Never Used Comments: 5 cigarettes a day Alcohol Use Standard Drinks/Week Comments No 0 (1 standard drink = 0.6 oz pure alcoho l) Sex Assigned at Date Recorded Female 01/14/2020 10:57 AM 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 MAKING 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 documented as of this encounter Last Filed Vital Signs Vital Sign Reading Time Taken Comments Blood Pressure 128/68 07/28/2014 4:13 PM CDT Pulse 90 07/28/2014 4:13 PM CDT Temperature 36.9 ??C (98.4 ??F) 07/28/2014 4:13 PM CDT Respiratory Rate 16 07/28/2014 4:13 PM CDT Oxygen Saturation 100% 07/28/2014 4:13 PM CDT Inhaled Oxygen Concentration - - Weight 85.7 kg (189 lb) 07/28/2014 4:13 PM CDT Height - - Body Mass Index 30.97 01/07/2013 11:29 AM CONCRETE PIPE MAKING 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 documented in this encounter Progress Notes Edgar Alfredo MD - 07/28/2014 5:40 PM CDT SUBJECTIVE: Stephani Parker is a 33 year old female who presents to clinic today for the following health issues: Status since last visit: Since last visit patient has been: stable. DENIES USE SINCE LAST VISIT CONTINUES TO HAVE NO EXPLANATION FOR COCAINE POSITIVE DRUG SCREEN JUST WANTS TO GET BEYOND THIS AND NOT LET IT HAPPEN AGAIN Intensity: ?? There has been: no craving. PER PATIENT REPORT ?? Suboxone Dose: adequate. Progression of Symptoms: ?? Cues to use and relapse triggers: NONE PER PATIENT ?? Recovery program has been: ignored. GOES TO WORSHIP BUT WOULD BENEFIT FROM A MORE ACTIVE RECOVERY PROGRAM Accompanying Signs & Symptoms: ?? Side Effects: none. Sobriety: ?? Status: patient has relapsed. BUT DENIES ?? Drug Screen: obtained. CLEAN Precipitating factors: ?? Triggers have been: non-existent. PER PATIENT Alleviating factors: ?? Contact with sponsor has been: no sponsor. ?? Family and support system has been: neutral. STRESS OF CHILD REARING MAY MAKE IT HARD FOR PATIENTTO TAKE CARE OF SELF Other Therapies Tried : ?? Patient has been going to recovery meetings:not at all. BUT HAS A WORSHIP ?? Problem list and histories reviewed & [...] 8 MG SUBL Take 1.5 tab daily 45 tablet 0 ??? OMEPRAZOLE PO Take by mouth daily ??? melatonin 1 MG TABS Take 1 mg by mouth At Bedtime ??? Venlafaxine HCl (EFFEXOR PO) Take by mouth 3 times daily ??? levothyroxine (SYNTHROID, LEVOTHROID) 125 MCG tablet Take 1 tablet by mouth daily ??? Zsumripm-Kyv-Gw-FA ( VITAMINS) 0.8 MG TABS Take 1 [...] list, Allergies, and Medical/Social/Surgical histories reviewed in EPIC andupdated as appropriate. ROS: Constitutional, HEENT, cardiovascular, pulmonary, gi and gu systems are negative, except as otherwise noted. OBJECTIVE: BP 128/68 mmHg Pulse 90 Temp(Src) 98.4 ??F (36.9 ??C) (Oral) Resp 16 Wt 189 lb (85.73 kg) SpO2 100% Body mass index is 30.96 kg/(m^2). GENERAL: healthy, alert and no distress MENTAL STATUS EXAM Appearance: appropriate Attitude: cooperative Behavior: normal Eyre Contact: normal Speech: normal Orientation: oreinted to person , place, time and situation Mood: admits sadness and anxiety most of time Affect: Mood Congruient Thought Process: clear Suicidal Ideation: reports thoughts, no intention Hallucination: no Diagnostic Test Results: Results for orders placed or performed in visit on 07/28/14 (from the past 24 hour(s)) Drug abuse [...] Ref Range Buprenorphine Qual Urine Positive ASSESSMENT: Opioid Dependence PLAN: ICD-9-CM 1. Uncomplicated opioid dependence 304.00 buprenorphine (SUBUTEX) 8 MG SUBL 2. Opiate dependence 304.00 Drug abuse screen (NL, RW) Buprenorphine Qual Urine MEDICATIONS: Continue current medications without change FUTURE APPOINTMENTS: - Follow-up visit in 1 month Edgar Alfredo MD, MD [facility] documented in this encounter Nursing Notes Lupe Lantigua CMA - 07/28/2014 4:13 PM CDT Chief Complaint Patient presents with ??? Recheck Medication Initial BP 128/68 mmHg Pulse 90 Temp(Src) 98.4 ??F (36.9 ??C) (Oral) Resp 16 Wt 189 lb (85.73 kg) SpO2 100% Estimated body mass index is 30.96 kg/(m^2) as calculated from the following: Height as of 13: 5' 5.5 (1.664 m). Weight as of this encounter: 189 lb (85.73 kg). BP completed using cuff size: large(rt) Lupe Lantigua MA documented in this encounter Plan of Treatment Upcoming Encounters Date Type Specialty Care Team Description 11/15/2021 Office Visit Wound Care Luis Camara DPM [address] [place] [phone] (Wo rk) documented as of this encounter Procedures Procedure Name Priority Date/Time Associated Comments Diagnosis BUPRENORPHINE QUAL Routine 07/28/2014 3:00 PM Opiate dependenc e Results for this URINE CDT (H) procedure are i n the results section. DRUG ABUSE SCREEN (NL, Routine 07/28/2014 3:00 PM Opiate depen dence Results for this RW) CDT (H) procedure are i n the results section. documented in this encounter Results Buprenorphine Qual Urine (07/28/2014 3:00 PM CDT) Patholo gist Method Time Signature Buprenorphine Positive RJ LAB Qual Urine Specimen Anatomical Collection Method Collection Time Receive d Time (Source) Location / / Volume Laterality Urine specimen 07/28/2014 3:00 PM 015 3:01 (specimen) CDT PM CDT Edgar Alfredo MD LAB - URINE ORDERABLES Performing Organization Address City/State/[place] [address] [facility] Building [address] [place], [place] [address] [address] RJ LAB Drug abuse screen (NL, RW) (07/28/2014 3:00 PM CDT) Component Value Ref Test Analysis [...] Location / / Volume Laterality Urine specimen 07/28/2014 3:00 PM 015 3:01 (specimen) CDT PM CDT Edgar Alfredo MD LAB - URINE ORDERABLES Performing Organization Address City/State/[facility] [place] [address] [facility] Building [address] RJ LAB documented in this encounter Visit Diagnoses Diagnosis Uncomplicated opioid dependence (H) - Pr imary Opioid type dependence, unspecified documented in this encounter Care Teams Corporate Sales Manager Relationship Specialty Start Date End Date Edgar Alfredo MD PCP - General Family Practice 04/13/12 08/11/[address] [place] [phone] documented as of this encounter
--- OUTSIDE RECORDS SUMMARY | 2021-11-10 00:48 | XMS_ITS | Encounter Summary ---
:[address] Address [address] [facility] [place] [address] Care Team Providers Name Role Phone System, Provider Not In Primary Care Provider Unavailable Reason for Referral - Closed Specialty Diagnoses / Procedures Referred By Contact Refer red To Contact Diagnoses Unspecified complication of , antepartum Breanna Coleman MD [address] [place], [place] [address] Referral ID Status Reason Start Date Expiration Date Visits Requ ested Visits Authorized [id number] Closed 08/24/2014 08/24/2015 1 1 Reason for Visit Reason Comments Ultrasound Encounter Details Date Type Department Care Team Description 08/24/2014 Orders Only [facility] Breanna Coleman Unspecifi ed complication of , antepartum (Primary Dx); Maternal MD Julian Abnormal heart rate or rhythm Medicine Center [address] [place], [place] [address] [address] [place], [place] [address] [phone] Social History Tobacco Use Types Packs/Day Years Used Date Current Every Day Smoker Cigarettes 0.1 10 Smokeless Tobacco: Never Used Comments: 5 cigarettes a day Alcohol Use Standard Drinks/Week Comments No 0 (1 standard drink = 0.6 oz pure alcoho l) Sex Assigned at Date Recorded Female 01/14/2020 10:57 AM ASPHALT MIXER documented as of this encounter Progress Notes Janeen Ruiz MD - 08/24/2014 3:24 PM CDT Cardiology Consult Date of Visit: 08/24/2014 Gestational Age: 24 weeks Due Date: 12/13/2014 Delivery: [facility] Dear I had the opportunity to meet with Stephani today for a Cardiology Consult and Echocardiography. 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 Good single ventricle (LV) function. HR was regular, no hydrops. I have reviewed the Echo findings. I amena a picture of a normal heart and compared it to that of Hypoplastic right heart syndrome. I discussed the anatomy, physiology and intervention needed after . This will be a single ventricle palliation pathway and we discussed initial procedure of BT shunt, followed by Yfn operation and Fontan palliation. I also have reviewed the length of stay.This is a prostaglandin dependent ductal lesion. Stephani had appropriate questions. I did my best to answer their questions. Plan: Follow up Echo planned for 28 and 32 weeks of GA. Plan to deliver ar [facility], expecting a full term delivery. Obtain cardiology consult, transthoracic Echo after . Start PGE 1 immediatley at . Thank you for allowing me to participate in Stephani's care. Feel free to contact me with questions. Xeuf-tr-quhv counseling time was [address] Janeen Ruiz Pipe Bending Machine Operator Director, Cardiology [facility] documented in this encounter Plan of Treatment Upcoming Encounters Date Type Specialty Care Team Description 11/15/2021 Office Visit Wound Care Luis Camara DPM [address] [place] [address] (Wo rk) Scheduled Referrals Name Type Priority Associated Diagnoses Order S erendira ELIZABETH Genetic Counseling Referral Routine Unspecified 1 Occ urrences starting complication of 08/24/2014 u ntil , antepartum 2015 documented as of this encounter Visit Diagnoses Diagnosis Unspecified complication of , a ntepartum - Primary Abnormal heart rate or rhythm Abnormality in heart rate or rhyth m, unspecified as to time of onset documented in this encounter Care Teams Rn Bariatric Relationship Specialty Start Date End Date System, Provider Not In PCP - General Clinic 08/12/14 07/13/16 documented as of this encounter
--- OUTSIDE RECORDS SUMMARY | 2021-11-10 00:48 | XMS_ITS | Encounter Summary ---
:1980 Author Organization [place] Address [address] [facility] [place] [address] Care Team Providers Name Role Phone System, Provider Not In Primary Care Provider Unavailable Reason for Visit Reason Comments Ultrasound ECHO, comp u/s: possib le heart anomaly Consult MFM consult: possible heart anomaly Encounter Details Date Type Department Care Team Description 08/22/2014 PRE VISIT [facility] Sintia Rasheed ( ECHO, Maternal Medicine GENARO Ghotra comp u/s: possible [facility] heart anomaly); [address] Consult (MFM consult: [place], [place] [address] possible heart [phone] anomaly) Social History Tobacco Use Types Packs/Day Years Used Date Current Every Day Smoker Cigarettes 0.1 10 Smokeless Tobacco: Never Used Comments: 5 cigarettes a day Alcohol Use Standard Drinks/Week Comments No 0 (1 standard drink = 0.6 oz pure alcoho l) Sex Assigned at Date Recorded Female 01/14/2020 10:57 AM MANAGER CREDIT RISK documented as of this encounter Plan of Treatment Upcoming Encounters Date Type Specialty Care Team Description 11/15/2021 Office Visit Wound Care Luis Camara DPM [address] [place] [address] (Wo rk) documented as of this encounter Visit Diagnoses Not on filedocumented in this encounter Care Teams Manager Privacy Relationship Specialty Start Date End Date System, Provider Not In PCP - General Clinic 08/12/14 07/13/16 documented as of this encounter
--- OUTSIDE RECORDS SUMMARY | 2021-11-10 00:48 | XMS_ITS | Encounter Summary ---
:1980 Author Organization [place] Address [address] [facility] [place] [address] Care Team Providers Name Role Phone System, Provider Not In Primary Care Provider Unavailable Reason for Visit Reason Onset Date Comments Ultrasound Comp US-heart defect Ultrasound echo-heart def ect Consult MFM-heart defect Erroneous encounter-disregard 08/25/2014 Encounter Details Date Type Department Care Team Description 08/24/2014 Office Visit [facility] Breanna Coleman Other kno wn or suspected abnormality, not elsewhere classified, affecting management of mother, antepartum condition or complication (Primary Dx); Maternal MD Julian ERRONEOUS ENCOUNTER--DISREGARD [facility] Center [address] [place], [place] [address] [address] [place], [place] [address] [phone] Social History Tobacco Use Types Packs/Day Years Used Date Current Every Day Smoker Cigarettes 0.1 10 Smokeless Tobacco: Never Used Comments: 5 cigarettes a day Alcohol Use Standard Drinks/Week Comments No 0 (1 standard drink = 0.6 oz pure alcoho l) Sex Assigned at Date Recorded Female 01/14/2020 10:57 AM PATIENT ACCOUNT SPECIALIST documented as of this encounter Progress Notes Winsome Allen RN - 08/25/2014 1:49 PM CDT This encounter was opened in error. Please disregard. documented in this encounter Plan of Treatment Upcoming Encounters Date Type Specialty Care Team Description 11/15/2021 Office Visit Wound Care Luis Camara, [place] [address] [place] [address] (Wo rk) documented as of this encounter Visit Diagnoses Diagnosis Other known or suspected abnormali ty, not elsewhere classified, affecting management of mother, antepartum conditi on or complication - Primary ERRONEOUS ENCOUNTER--DISREGARD documented in this encounter Care Teams Instrument Fitter Relationship Specialty Start Date End Date System, Provider Not In PCP - General Clinic 08/12/14 07/13/16 documented as of this encounter
--- OUTSIDE RECORDS SUMMARY | 2021-11-10 00:48 | XMS_ITS | Encounter Summary ---
:1980 Author Organization [place] Address [address] [place] [address] Care Team Providers Name Role Phone System, Provider Not In Primary Care Provider Unavailable Encounter Details Date Type Department Care Team Description 08/24/2014 Hospital Encounter [facility] Jared Breanna Pre gnancy, Maternal MD Julian [facility] [address] [place], [place] [address] [address] [place], [place] [phone] (Work) [phone] Social History Tobacco Use Types Packs/Day Years Used Date Current Every Day Smoker Cigarettes 0.1 10 Smokeless Tobacco: Never Used Comments: 5 cigarettes a day Alcohol Use Standard Drinks/Week Comments No 0 (1 standard drink = 0.6 oz pure alcoho l) Sex Assigned at Date Recorded Female 01/14/2020 10:57 AM CRAFT RECRUITER documented as of this encounter Medications at [...] by 30 tablet 6 12/10/2012 08/30/19 17 Pytuqpqp-Gcr-Hp-FA mouth daily ( VITAMINS) 0.8 MG TABSIndications: [...] Visit Wound Care Luis Camara, [place] [address] [place] [address] (Wo rk) documented as of this encounter Procedures Procedure Name Priority Date/Time Associated Comments Diagnosis [facility] US COMPREHENSIVE Routine 08/24/2014 11:29 , Res ults for this SINGLE AM CDT incidental procedure are i n the results section. documented in this encounter Results [facility] US Comprehensive Single (08/24/2014 11:29 AM CDT) [...] MCCORMICK Study Date: 08/24 10:55am Pat. NO: [id number] Referring ??MD: KATY ROCHE Site: [facility] Financial Project Manager: Carlos Gordon RDMS : 1980 Age: 35 [...] (HC-AC-FL) Head / Face / Neck Biometry: Set Up / Operator ?7.9 ?mm ? Nasal bone ?7.2 ?mm [...] presence of a congenital heart defect is 03/01. We discussed the availability of cell-free DNA [...] that delivery will need to be at [facility] where NICU and Pediatric Cardiology as well [...] this patient and /or family members. Approximate itrv-gp-haxl time was 30 min utes. Procedure Note Breanna Coleman MD - 09/10/2016Format ting of this note might be different from the original. Comprehensive Pat. Name:Elizabeth MCCORMICK Date:08/25/19 10:55am Pat. NO: [id number] :YURIDIA ROCHE [facility]Carlos Gordon RDMS :1980Age:35 INDICATION Congenital Heart Defect. 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 METHOD Transabdominal ultrasound examination. G ood view. Nicole . Number of fetuses: [...] stated dating (on 05/24/2014 by per 1st 24 w + 1 d 12/13/2014 Trimester [...] 5.6 mm Humerus 38.6 mm 23w 5d Pauly Weight Calculation: EFW 589 g 31% 23w 0d Gildardo EFW (lb,oz) 1 lb 5 oz Calculated by Flora (HC-AC-FL) Head / Face / Neck Biometry: Set Up / Operator 7.9 mm Nasal bone 7.2 mm Amniotic [...] that delivery will need to be at [facility] where NICU and Pediatric Cardiology as well [...] this patient and /or family members. Approximate rkkc-kf-sldl time was 30 min utes. IMPRESSION Single intrauterine at 24 1/7 weeks gestation by 11 week ultrasound. Sonographic biometry agrees with gestational age predicted by prior ultrasound. 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 The remainder of anatomy was adequately visualized and appeared normal. Breanna Coleman MD [facility] ORDERABLES documented in this encounter Visit Diagnoses Diagnosis , incidental state, incidental documented in this encounter Care Teams Staff Scientist Relationship Specialty Start Date End Date System, Provider Not In PCP - General Clinic 08/12/14 07/13/16 documented as of this encounter
--- OUTSIDE RECORDS SUMMARY | 2021-11-10 00:48 | XMS_ITS | Encounter Summary ---
:1980 Author Organization [place] Address [address] [facility] [place] [address] Care Team Providers Name Role Phone System, Provider Not In Primary Care Provider Unavailable Reason for Visit Reason Comments Ultrasound comp u/s and ECHO: fet al heart defect Consult MFM consult: heart def ect - Closed Specialty Diagnoses / Procedures Referred By Contact Refer red To Contact Diagnoses Other known or suspected abnormality, not elsewhere classified, affecting management of mother, antepartum condition or complication Sintia Rasheed, bid manager ID Status Reason Start Date Expiration Date Visits Requ ested Visits Authorized [id number] Closed 08/12/2014 02/08/2015 1 1 Encounter Details Date Type Department Care Team Description 08/24/2014 Office Visit [facility] Breanna Coleman con genital heart Maternal MD Julian defect, antepartum Medicine Center [address] [place], [place] [address] [address] [place], [place] [address] [phone] Social History Tobacco Use Types Packs/Day Years Used Date Current Every Day Smoker Cigarettes 0.1 10 Smokeless Tobacco: Never Used Comments: 5 cigarettes a day Alcohol Use Standard Drinks/Week Comments No 0 (1 standard drink = 0.6 oz pure alcoho l) Sex Assigned at Date Recorded Female 01/14/2020 10:57 AM TECHNOLOGY RECRUITER documented as of this encounter Progress Notes Breanna Coleman MD - 08/26/2014 3:38 PM CDT The patient was seen for an ultrasound and consultation in the Maternal- Medicine Center at [facility] today. The following is the summary of the impression and recommendations fromthat encounter. For a detailed report of the ultrasound examination, please see the ultrasound report which can be found under the imaging tab. Consultation Type: DIAGNOSIS & TREATMENT CENTER CONSULTATION. Dear DR. ROCHE, Thank you for requesting a consultation on your patient, MS. MCCORMICK, for a possible congenital heart defect. 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 Dr. Ruiz reviewed the heart defect as well as the expectedcourse of treatment with the patient in detail today. We discussed with the patient that the remainder of anatomy appears normal. We discussed that congential heart defects can occur as sporadic defects but in some cases are due to chromosomal abnormalities or genetic syndromes. We discussed that the risk for Down syndrome, specifically, given the patient's age and the presence of a congenital heart defect is 1/13. We discussed the availability of cell-free DNA screening which would give 98-99% detection for the common aneuploidies as well as detection of some chromosomal microdeletion syndromes. We discussed the availability of amniocentesis which would be diagnostic for all chromosomal abnormalities but carries a 1/500 risk for complications of loss (or at this gestational age for labor). The patient is not interested in genetic screening or testing at this point but requested information about these tests today and will consider having screening or testing at a future visit. We discussed that delivery will need to be at [facility] where NICU and Pediatric Cardiology as well as Pediatric Cardiothoracic Surgery services area available. As such, we will begin seeing the patient here for her care in 3-4 weeks at the timeof her next ultrasound. Follow-up echocardiograms are planned at 28 and 32 weeks. Our hope would be for delivery at 39-40 weeks so that the fetus is of a good size and maturity in preparation for post- cardiac surgery. Cardiology is expecting staged cardiac surgeries with ultimately a single-ventricle palliation. The patient is understandably overwhelmed by the information given at today's visit. We encouraged her to call if she has more questions prior to her next visit. In the coming weeks we will also be arranging for her to have a Neonatology consultation and NICU/PICU tour. A copy of this consultation is being sent to your office. Impression ========= Single intrauterine at 24 1/7 weeks gestation by 11 week ultrasound. Sonographic biometry agrees with gestational age predicted by prior ultrasound. 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 The remainder of anatomy was adequately visualized and appeared normal. Recommendation We discussed the findings on today's ultrasound with the patient. See consultation section for further counseling. A repeat ultrasound has been scheduled in 3-4 weeks to reevaluate growth and anatomy as well as for follow-up echocardiogram. Return to primary provider for continued care. Thank-you for the opportunity to participate in the care of this patient. If you have questions regarding today's evaluation or if we can be of further service, please contact the Maternal- Medicine Center. anomalies may be present but not detected. The patient was seen for an outpatient consultation beyond the performance and interpretation of theultrasound. The majority of time (>50%) was spent on counseling and coordination of care of this patient and/or family members. Approximate rqlh-tw-xkaf time was 30 minutes. Breanna Coleman MD Maternal- Medicine & Clinical Genetics August 24, 2014 documented in this encounter Nursing Notes Sintia Rasheed RN - 08/24/2014 3:27 PM CDT Pt seen for comp u/s, ECHO, and MFM consult. Pediatric Cardiology and Dr Coleman met with patient. Plan for patient to return to [facility] in 4 weeks for f/u comp u/s, 1st OBV, and f/u ECHO. Will schedule pt for NICU consult at that appointment. documented in this encounter Plan of Treatment Upcoming Encounters Date Type Specialty Care Team Description 11/15/2021 Office Visit Wound Care Luis Camara DPM [address] [place] [address] (Wo rk) documented as of this encounter Visit Diagnoses Diagnosis congenital heart defect, antepartu m Other known or suspected abnormali ty, not elsewhere classified, affecting management of mother, antepartum conditi on or complication documented in this encounter Care Teams Anesthesiologists' Assistant Relationship Specialty Start Date End Date System, Provider Not In PCP - General Clinic 08/12/14 07/13/16 documented as of this encounter
--- OUTSIDE RECORDS SUMMARY | 2021-11-10 00:48 | XMS_ITS | Encounter Summary ---
:1980 Author Organization [place] Address [address] [facility] [place] [address] Care Team Providers Name Role Phone Edgar Alfredo MD Primary Care Provider Reason for Visit Reason Comments Recheck Medication Encounter Details Date Type Department Care Team Description 11/22/2013 Office Visit [facility] Edgar Alfredo de pendence (H) Clinic Ashly Gauthier MD [address] [place] [address] [place] [phone] Social History Tobacco Use Types Packs/Day Years Used Date Current Every Day Smoker Cigarettes 0.1 10 Smokeless Tobacco: Never Used Comments: 5 cigarettes a day Alcohol Use Standard Drinks/Week Comments No 0 (1 standard drink = 0.6 oz pure alcoho l) Sex Assigned at Date Recorded Female 01/14/2020 10:57 AM ARTIST 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 documented as of this encounter Last Filed Vital Signs Vital Sign Reading Time Taken Comments Blood Pressure 112/57 11/22/2013 11:12 AM CDT Pulse 101 11/22/2013 11:12 AM CDT Temperature - - Respiratory Rate - - Oxygen Saturation - - Inhaled Oxygen Concentration - - Weight - - Height - - Body Mass Index - - documented in this encounter Progress Notes Edgar Alfredo MD - 11/22/2013 12:40 PM CDT Stephani Parker is here for a periodic Suboxone follow-up. Since last visit patient has been: struggling. HAD SOME PAIN AND URGES TO INCREASE DOSE TOOK 16 MG SOME DAYS AND RAN OUT EARLY MOTHER HAS SOME TO SUPPLEMENT HER UNTIL TODAY DISCUSSED IMPORTANCE OF TAKING MEDICATION PRESCRIBED VERY STRESSED LIFE WITH ASPHALT SMOOTHER There has been: moderate craving. Cues to use and relapse triggers have been: moderate. Recovery program has been: weak. Contact with sponsor has been: no sponsor. Family and support system has been: helpful. Patient has been going to recovery meetings:not at all. Sobriety: no use since last visit Drug Screen: obtained Suboxone Dose: adequate Side Effects: none Plan for Suboxone for next period: no change Questions answered: YES Issues discussed: TAKING MEDICATION PRESCRIBED Next visit: 1 MONTH 20 minutes were spent with patient with more than 50% of time spent in counseling and coordination of care; Discussed with patient many issues of addiction, relapse, and establishing a solid recovery program. documented in this encounter Nursing Notes Suyapa Rodriguez CMA - 11/22/2013 11:13 AM CDT Chief Complaint Patient presents with ??? Recheck Medication Initial BP 112/57 Pulse 101 Estimated body mass index is 25.06 kg/(m^2) as calculated from the following: Height as of 01/07/13: 5' 5.5 (1.664 m). Weight as of 01/07/13: 153 lb (69.4 kg). BP completed using cuff size: large Suyapa Rodriguez MLT, CMA documented in this encounter Plan of Treatment Upcoming Encounters Date Type Specialty Care Team Description 11/15/2021 Office Visit Wound Care Luis Camara DPM [address] [place] [phone] (Wo rk) documented as of this encounter Procedures Procedure Name Priority Date/Time Associated Comments Diagnosis BUPRENORPHINE QUAL Routine 11/22/2013 11:04 Opiate dependence Results for this URINE AM CDT (H) procedure are i n the results section. DRUG ABUSE SCREEN (NL, Routine 11/22/2013 11:04 Opiate depende nce Results for this RW) AM CDT (H) procedure are i n the results section. documented in this encounter Results Buprenorphine Qual Urine (11/22/2013 11:04 AM CDT) Patholo gist Method Time Signature Buprenorphine Positive [facility] LAB Qual Urine Specimen Anatomical Collection Method Collection Time Receive d Time (Source) Location / / Volume Laterality Urine specimen 11/22/2013 11:04 4 (specimen) AM CDT 11:09 AM CDT Edgar Alfredo MD LAB - URINE ORDERABLES Performing Organization Address City/State/ZIP [place] [address] [facility] Building [address] [facility] LAB (ABNORMAL) Drug abuse screen (NL, RW) (11/22/2013 11:04 AM CDT) Component Value Ref Test Analysis [...] Location / / Volume Laterality Urine specimen 11/22/2013 11:04 4 (specimen) AM CDT 11:09 AM CDT Edgar Alfredo MD LAB - URINE ORDERABLES Performing Organization Address City/State/ZIP [place] [address] [facility] Building [address] LAB documented in this encounter Visit Diagnoses Diagnosis Opiate dependence (H) Opioid type dependence, unspecified documented in this encounter Care Teams Budget Examiner Relationship Specialty Start Date End Date Edgar Alfredo MD PCP - General Family Practice 04/13/12 08/11/[address] [place] [address] documented as of this encounter
--- OUTSIDE RECORDS SUMMARY | 2021-11-10 00:48 | XMS_ITS | Encounter Summary ---
:1980 Author Organization [place] Address [address] [facility] [place] [address] Care Team Providers Name Role Phone Edgar Alfredo MD Primary Care Provider Reason for Visit Reason Comments Recheck Medication Encounter Details Date Type Department Care Team Description 03/15/2014 Office Visit [facility] Edgar Alfredo de pendence (H) Clinic Ashly Gauthier MD [address] [place] [phone] Social History Tobacco Use Types Packs/Day Years Used Date Current Every Day Smoker Cigarettes 0.1 10 Smokeless Tobacco: Never Used Comments: 5 cigarettes a day Alcohol Use Standard Drinks/Week Comments No 0 (1 standard drink = 0.6 oz pure alcoho l) Sex Assigned at Date Recorded Female 01/14/2020 10:57 AM BARREL BUNG REMOVER AND DUMPER documented as of this encounter Last Filed Vital Signs Vital Sign Reading Time Taken Comments Blood Pressure 110/63 03/15/2014 11:27 AM BARREL BUNG REMOVER AND DUMPER Pulse 94 03/15/2014 11:27 AM BARREL BUNG REMOVER AND DUMPER Temperature - - Respiratory Rate - - Oxygen Saturation - - Inhaled Oxygen Concentration - - Weight - - Height - - Body Mass Index - - documented in this encounter Progress Notes Edgar Alfredo MD - 03/16/2014 12:44 PM CST Stephani Parker is here for a periodic Suboxone follow-up. Since last visit patient has been: stable. 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 EL BUNG REMOVER AND DUMPER documented in this encounter Nursing Notes Suyapa Rodriguez CMA - 03/15/2014 11:27 AM CST Chief Complaint Patient presents with ??? Recheck Medication Initial BP 110/63 Pulse 94 Estimated body mass index is 25.06 kg/(m^2) as calculated from the following: Height as of 01/07/13: 5' 5.5 (1.664 m). Weight as of 01/07/13: 153 lb (69.4 kg). BP completed using cuff size: large Suyapa Rodriguez MLT, CMA EL BUNG REMOVER AND DUMPER documented in this encounter Plan of Treatment Upcoming Encounters Date Type Specialty Care Team Description 11/15/2021 Office Visit Wound Care Luis Camara DPM [address] [place] [phone] (Wo rk) documented as of this encounter Procedures Procedure Name Priority Date/Time Associated Comments Diagnosis BUPRENORPHINE QUAL Routine 03/15/2014 11:17 Opiate dependence Results for this URINE AM BARREL BUNG REMOVER AND DUMPER (H) procedure are i n the results section. DRUG ABUSE SCREEN (NL, Routine 03/15/2014 11:17 Opiate depende nce Results for this RW) AM BARREL BUNG REMOVER AND DUMPER (H) procedure are i n the results section. documented in this encounter Results Buprenorphine Qual Urine (03/15/2014 11:17 AM BARREL BUNG REMOVER AND DUMPER) Patholo gist Method Time Signature Buprenorphine Positive [facility] Qual Urine Specimen Anatomical Collection Method Collection Time Receive d Time (Source) Location / / Volume Laterality Urine specimen 03/15/2014 11:17 5 (specimen) AM BARREL BUNG REMOVER AND DUMPER 11:22 AM BARREL BUNG REMOVER AND DUMPER Edgar Alfredo MD LAB - URINE ORDERABLES Performing Organization Address City/State/[place] [address] [facility] Building [address] [facility] Drug abuse screen (NL, RW) (03/15/2014 11:17 AM BARREL BUNG REMOVER AND DUMPER) Component Value Ref Test Analysis Performed Pathologis [...] Location / / Volume Laterality Urine specimen 03/15/2014 11:17 5 (specimen) AM BARREL BUNG REMOVER AND DUMPER 11:22 AM BARREL BUNG REMOVER AND DUMPER Edgar Alfredo MD LAB - URINE ORDERABLES Performing Organization Address City/State/[place] [address] [facility] Building [address] [facility] documented in this encounter Visit Diagnoses Diagnosis Opiate dependence (H) Opioid type dependence, unspecified documented in this encounter Care Teams Living Advisor Relationship Specialty Start Date End Date Edgar Alfredo MD PCP - General Family Practice 04/13/12 08/11/[address] [place] [phone] documented as of this encounter
--- OUTSIDE RECORDS SUMMARY | 2021-11-10 00:48 | XMS_ITS | Encounter Summary ---
:1980 Author Organization [place] Address [address] [facility] [address] Care Team Providers Name Role Phone Edgar Alfredo MD Primary Care Provider Reason for Visit Reason Comments Recheck Medication Encounter Details Date Type Department Care Team Description 12/23/2013 Office Visit [facility] Edgar Alfredo de pendence (H) Clinic Ashly Gauthier MD [address] [place] [phone] Social History Tobacco Use Types Packs/Day Years Used Date Current Every Day Smoker Cigarettes 0.1 10 Smokeless Tobacco: Never Used Comments: 5 cigarettes a day Alcohol Use Standard Drinks/Week Comments No 0 (1 standard drink = 0.6 oz pure alcoho l) Sex Assigned at Date Recorded Female 01/14/2020 10:57 AM OBSTETRICS NURSE PRACTITIONER documented as of this encounter Last Filed Vital Signs Vital Sign Reading Time Taken Comments Blood Pressure 133/84 12/23/2013 4:56 PM OBSTETRICS NURSE PRACTITIONER Pulse 99 12/23/2013 4:56 PM OBSTETRICS NURSE PRACTITIONER Temperature - - Respiratory Rate - - Oxygen Saturation - - Inhaled Oxygen Concentration - - Weight - - Height - - Body Mass Index - - documented in this encounter Progress Notes Edgar Alfredo MD - 12/24/2013 10:10 PM CST Stephani Parker is here for a periodic Suboxone follow-up. Since last visit patient has been: stable. VERY BUSY WITH CHILDREN UNABLE TO FIND TIME TO GET TO MEETINGS ALSO HAS NO TIME FOR USING DRUGS OR CONTACT WITH USERS There has been: no craving. Cues to use and relapse triggers have been: non-existent. Recovery program has been: weak. Contact with sponsor has been: no sponsor. Family and support system has been: helpful. Patient has been going to recovery meetings:not at all. Sobriety: no use since last visit Drug Screen: obtained Suboxone Dose: adequate; UNABLE TO EXPLAIN NO SUBOXONE IN URINE; SAYS SHE WOULD NEVER MISS Side Effects: none Plan for Suboxone for next period: no change Questions answered: YES Issues discussed: BENEFIT OF SOBRIETY Next visit: 1 MONTH 20 minutes were spent with patient with more than 50% of time spent in counseling and coordination of care; Discussed with patient many issues of addiction, relapse, and establishing a solid recovery program. ETRICS NURSE PRACTITIONER documented in this encounter Nursing Notes Suyapa Rodriguez CMA - 12/23/2013 4:56 PM CST Chief Complaint Patient presents with ??? Recheck Medication Initial BP 133/84 Pulse 99 Estimated body mass index is 25.06 kg/(m^2) as calculated from the following: Height as of 01/07/13: 5' 5.5 (1.664 m). Weight as of 01/07/13: 153 lb (69.4 kg). BP completed using cuff size: large Suyapa Rodriguez MLT, CMA ETRICS NURSE PRACTITIONER documented in this encounter Plan of Treatment Upcoming Encounters Date Type Specialty Care Team Description 11/15/2021 Office Visit Wound Care Luis Camara DPM [address] [place] [phone] (Wo rk) documented as of this encounter Procedures Procedure Name Priority Date/Time Associated Comments Diagnosis BUPRENORPHINE QUAL Routine 12/23/2013 4:56 PM Opiate dependenc e Results for this URINE OBSTETRICS NURSE PRACTITIONER (H) procedure are i n the results section. DRUG ABUSE SCREEN (NL, Routine 12/23/2013 4:56 PM Opiate depen dence Results for this RW) OBSTETRICS NURSE PRACTITIONER (H) procedure are i n the results section. documented in this encounter Results Buprenorphine Qual Urine (12/23/2013 4:56 PM OBSTETRICS NURSE PRACTITIONER) Patholo gist Method Time Signature Buprenorphine Negative [facility] Qual Urine Specimen Anatomical Collection Method Collection Time Receive d Time (Source) Location / / Volume Laterality Urine specimen 12/23/2013 4:56 PM 014 5:01 (specimen) OBSTETRICS NURSE PRACTITIONER PM OBSTETRICS NURSE PRACTITIONER Edgar Alfredo MD LAB - URINE ORDERABLES Performing Organization Address City/State/[place] [address] [facility] Building [address] [facility] Drug abuse screen (NL, RW) (12/23/2013 4:56 PM OBSTETRICS NURSE PRACTITIONER) Component Value Ref Test Analysis Performed Pathologis [...] Location / / Volume Laterality Urine specimen 12/23/2013 4:56 PM 014 5:01 (specimen) OBSTETRICS NURSE PRACTITIONER PM OBSTETRICS NURSE PRACTITIONER Edgar Alfredo MD LAB - URINE ORDERABLES Performing Organization Address City/State/[place] [address] [facility] Building [address] [facility] documented in this encounter Visit Diagnoses Diagnosis Opiate dependence (H) Opioid type dependence, unspecified documented in this encounter Care Teams Director Sports Relationship Specialty Start Date End Date Edgar Alfredo MD PCP - General Family Practice 04/13/12 08/11/[address] [place] [phone] documented as of this encounter
--- OUTSIDE RECORDS SUMMARY | 2021-11-10 00:48 | XMS_ITS | Encounter Summary ---
:1980 Author Organization [place] Address [address] [facility] [place] [address] Care Team Providers Name Role Phone System, Provider Not In Primary Care Provider Unavailable Reason for Visit Reason Comments Recheck Medication Encounter Details Date Type Department Care Team Description 09/20/2014 Office Visit [facility] Edgar Alfredo ated opioid dependence (H) (Primary Dx); Clinic Ashly Gauthier MD Opiate dependence (H) [address] [place] [phone] Social History Tobacco Use Types Packs/Day Years Used Date Current Every Day Smoker Cigarettes 0.1 10 Smokeless Tobacco: Never Used Comments: 5 cigarettes a day Alcohol Use Standard Drinks/Week Comments No 0 (1 standard drink = 0.6 oz pure alcoho l) Sex Assigned at Date Recorded Female 01/14/2020 10:57 AM 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 documented as of this encounter Last Filed Vital Signs Vital Sign Reading Time Taken Comments Blood Pressure 112/66 09/20/2014 11:38 AM CDT Pulse 86 09/20/2014 11:38 AM CDT Temperature - - Respiratory Rate - - Oxygen Saturation - - Inhaled Oxygen Concentration - - Weight - - Height - - Body Mass Index - - documented in this encounter Progress Notes Edgar Alfredo MD - 09/22/2014 12:53 PM CDT SUBJECTIVE: Stephani Parker is a 33 year old female who presents to clinic today for the following health issues: Suboxone followup DOING OK WITH THE SUBUTEX HER CONTINUES NO WITHDRAWAL NO USING NO CRAVING VERY CONCERNED ABOUT HEART DEFECT; WILL NEED HEART SURGERY HAS OB APPOINTMENT TOMORROW Status since last visit: Since last visit [...] 8 MG SUBL Take 1.5 tab daily 53 tablet 0 ??? OMEPRAZOLE PO Take by mouth daily ??? melatonin 1 MG TABS Take 1 mg by mouth At Bedtime ??? Venlafaxine HCl (EFFEXOR PO) Take by mouth 3 times daily ??? levothyroxine (SYNTHROID, LEVOTHROID) 125 MCG tablet Take 1 tablet by mouth daily ??? Kcgjkehj-Gzh-Fb-FA ( VITAMINS) 0.8 MG TABS Take 1 [...] list, Allergies, and Medical/Social/Surgical histories reviewed in [facility] andupdated as appropriate. ROS: Constitutional, HEENT, cardiovascular, pulmonary, gi and gu systems are negative, except as otherwise noted. OBJECTIVE: BP 112/66 mmHg Pulse 86 There is no weight on file to calculate BMI. GENERAL: healthy, alert and no distress Diagnostic Test Results: Results for orders placed or performed in visit on 09/20/14 Drug abuse screen (NL, RW) Result Value [...] Ref Range Buprenorphine Qual Urine Positive ASSESSMENT: OPIATE DEPENDENCE PLAN: ICD-10-CM ICD-9-CM 1. Uncomplicated opioid dependence F11.20 304.00 buprenorphine (SUBUTEX) 8 MG SUBL 2. Opiate dependence F11.20 304.00 Drug abuse screen (NL, RW) Buprenorphine Qual Urine MEDICATIONS: Continue current medications without change RE-CHECK 5 WEEKS Edgar Alfredo MD, MD [facility] documented in this encounter Nursing Notes Suyapa Rodriguez CMA - 09/20/2014 11:38 AM CDT Chief Complaint Patient presents with ??? Recheck Medication Initial BP 112/66 mmHg Pulse 86 Estimated body mass index is 30.96 kg/(m^2) as calculated from thefollowing: Height as of 01/07/13: 5' 5.5 (1.664 m). Weight as of 07/28/14: 189 lb (85.73 kg). BP completed using cuff size: miguelangel Rodriguez MLT, CMA documented in this encounter Plan of Treatment Upcoming Encounters Date Type Specialty Care Team Description 11/15/2021 Office Visit Wound Care Luis Camara, [address] [place] [address] (Wo rk) documented as of this encounter Procedures Procedure Name Priority Date/Time Associated Comments Diagnosis BUPRENORPHINE QUAL Routine 09/20/2014 11:24 Opiate dependence Results for this URINE AM CDT (H) procedure are i n the results section. DRUG ABUSE SCREEN (NL, Routine 09/20/2014 11:24 Opiate depende nce Results for this RW) AM CDT (H) procedure are i n the results section. documented in this encounter Results Buprenorphine Qual Urine (09/20/2014 11:24 AM CDT) [facility] gist Method Time Signature Buprenorphine Positive [facility] Qual Urine Specimen Anatomical Collection Method Collection Time Receive d Time (Source) Location / / Volume Laterality Urine specimen 09/20/2014 11:24 5 (specimen) AM CDT 11:29 AM CDT Edgar Alfredo MD LAB - URINE ORDERABLES Performing Organization Address City/State/[place] [address] [facility] Building [address] [facility] Drug abuse screen (NL, RW) (09/20/2014 11:24 AM CDT) Component Value Ref Test Analysis [...] Location / / Volume Laterality Urine specimen 09/20/2014 11:24 5 (specimen) AM CDT 11:29 AM CDT Edgar Alfredo MD LAB - URINE ORDERABLES Performing Organization Address City/State/[place] [address] [facility] Building [address] [facility] documented in this encounter Visit Diagnoses Diagnosis Uncomplicated opioid dependence (H) - Pr imary Opioid type dependence, unspecified documented in this encounter Care Teams Admissions Recruiter Relationship Specialty Start Date End Date System, Provider Not In PCP - General Clinic 08/12/14 07/13/16 documented as of this encounter
--- OUTSIDE RECORDS SUMMARY | 2021-11-10 00:48 | XMS_ITS | Encounter Summary ---
:1980 Author Organization [place] Address [address] [place] [address] Care Team Providers Name Role Phone Edgar Alfredo MD Primary Care Provider Reason for Visit Reason Comments Recheck Medication Encounter Details Date Type Department Care Team Description 04/12/2014 Office Visit [facility] Edgar Alfredo de pendence (H) Clinic Ashly Gauthier MD [address] [place] [phone] Social History Tobacco Use Types Packs/Day Years Used Date Current Every Day Smoker Cigarettes 0.1 10 Smokeless Tobacco: Never Used Comments: 5 cigarettes a day Alcohol Use Standard Drinks/Week Comments No 0 (1 standard drink = 0.6 oz pure alcoho l) Sex Assigned at Date Recorded Female 01/14/2020 10:57 AM TRAFFIC SIGNAL TECHNICIAN documented as of this encounter Last Filed Vital Signs Vital Sign Reading Time Taken Comments Blood Pressure 115/66 04/12/2014 11:18 AM TRAFFIC SIGNAL TECHNICIAN Pulse 101 04/12/2014 11:18 AM TRAFFIC SIGNAL TECHNICIAN Temperature - - Respiratory Rate - - Oxygen Saturation - - Inhaled Oxygen Concentration - - Weight - - Height - - Body Mass Index - - documented in this encounter Progress Notes Edgar Alferdo MD - 04/13/2014 1:37 PM CST Stephani Parker is here for a periodic Suboxone follow-up. Since last visit patient has been: stable. ALL IS STABLE NO QUESTIONS NO PROBLEMS NO DESIRE TO CHANGE ANYTHING There has been: no craving. Cues to use and relapse triggers have been: non-existent. Recovery program has been: solid. Contact with sponsor has been: no sponsor. Family and support system has been: helpful. Patient has been going to recovery meetings:not at all. Sobriety: no use since last visit Drug Screen: obtained Suboxone Dose: adequate Side Effects: none Plan for Suboxone for next period: no change Questions answered: YES Issues discussed: STABLE RECOVERY PATTERN Next visit: 1 MONTH 20 minutes were spent with patient with more than 50% of time spent in counseling and coordination of care; Discussed with patient many issues of addiction, relapse, and establishing a solid recovery program. FIC SIGNAL TECHNICIAN documented in this encounter Nursing Notes Suyapa Rodriguez CMA - 04/12/2014 11:19 AM CST Chief Complaint Patient presents with ??? Recheck Medication Initial BP 115/66 Pulse 101 Estimated body mass index is 25.06 kg/(m^2) as calculated from the following: Height as of 01/07/13: 5' 5.5 (1.664 m). Weight as of 01/07/13: 153 lb (69.4 kg). BP completed using cuff size: large Suyapa Rodriguez MLT, CMA FIC SIGNAL TECHNICIAN documented in this encounter Plan of Treatment Upcoming Encounters Date Type Specialty Care Team Description 11/15/2021 Office Visit Wound Care Luis Camara, [address] [place] [address] (Wo rk) documented as of this encounter Procedures Procedure Name Priority Date/Time Associated Comments Diagnosis BUPRENORPHINE QUAL Routine 04/12/2014 11:08 Opiate dependence Results for this URINE AM TRAFFIC SIGNAL TECHNICIAN (H) procedure are i n the results section. DRUG ABUSE SCREEN (NL, Routine 04/12/2014 11:08 Opiate depende nce Results for this RW) AM TRAFFIC SIGNAL TECHNICIAN (H) procedure are i n the results section. documented in this encounter Results Buprenorphine Qual Urine (04/12/2014 11:08 AM TRAFFIC SIGNAL TECHNICIAN) Patholo gist Method Time Signature Buprenorphine Positive [facility] Qual Urine Specimen Anatomical Collection Method Collection Time Receive d Time (Source) Location / / Volume Laterality Urine specimen 04/12/2014 11:08 5 (specimen) AM TRAFFIC SIGNAL TECHNICIAN 11:13 AM TRAFFIC SIGNAL TECHNICIAN Edgar Alfredo MD LAB - URINE ORDERABLES Performing Organization Address City/State/[place] [address] [facility] Building [address] [facility] Drug abuse screen (NL, RW) (04/12/2014 11:08 AM TRAFFIC SIGNAL TECHNICIAN) Component Value Ref Test Analysis Performed Pathologis [...] Location / / Volume Laterality Urine specimen 04/12/2014 11:08 5 (specimen) AM TRAFFIC SIGNAL TECHNICIAN 11:13 AM TRAFFIC SIGNAL TECHNICIAN Edgar Alfredo MD LAB - URINE ORDERABLES Performing Organization Address City/State/[place] [address] [facility] Building [address] [facility] documented in this encounter Visit Diagnoses Diagnosis Opiate dependence (H) Opioid type dependence, unspecified documented in this encounter Care Teams Hat Block Maker Relationship Specialty Start Date End Date Edgar Alfredo MD PCP - General Family Practice 04/13/12 08/11/[address] [place] [phone] documented as of this encounter
--- OUTSIDE RECORDS SUMMARY | 2021-11-10 00:48 | XMS_ITS | Encounter Summary ---
:1980 Author Organization [place] Address [address] [facility] [place] [address] Care Team Providers Name Role Phone System, Provider Not In Primary Care Provider Unavailable Reason for Visit Reason Comments Recheck Medication Encounter Details Date Type Department Care Team Description 08/25/2014 Office Visit [facility] Edgar Alfredo ated opioid dependence (H) (Primary Dx); Clinic Ashly Gauthier MD Opiate dependence (H) [address] [place] [address] [place] [phone] Social History Tobacco Use Types Packs/Day Years Used Date Current Every Day Smoker Cigarettes 0.1 10 Smokeless Tobacco: Never Used Comments: 5 cigarettes a day Alcohol Use Standard Drinks/Week Comments No 0 (1 standard drink = 0.6 oz pure alcoho l) Sex Assigned at Date Recorded Female 01/14/2020 10:57 AM ROVING FRAME TENDER documented as of this encounter Last Filed Vital Signs Vital Sign Reading Time Taken Comments Blood Pressure 112/62 08/25/2014 4:39 PM CDT Pulse 100 08/25/2014 4:39 PM CDT Temperature - - Respiratory Rate - - Oxygen Saturation - - Inhaled Oxygen Concentration - - Weight - - Height - - Body Mass Index - - documented in this encounter Progress Notes Edgar Alfredo MD - 08/31/2014 10:03 PM CDT SUBJECTIVE: Stephani Parker is a 33 year old female who presents to clinic today for the following health issues: Suboxone followup PATIENT IS 24 WEEKS CHILD HAS HEART DEFECT; PATIENT WORRIED STILL DENIES PREVIOUS DRUG USAGE ON SUBUTEX 12 MG DISCUSSED DOSE AND RISK OF EDDIE Status since last visit: Since last visit patient has been: stable. Intensity: ?? There has been: no craving. ?? Suboxone Dose: too high. MAYBE; RISK OF EDDIE Progression of Symptoms: ?? [...] Take 1 tablet by mouth daily ??? Dkgdakgd-Uku-El-FA ( VITAMINS) 0.8 MG TABS Take 1 [...] list, Allergies, and Medical/Social/Surgical histories reviewed in [facility] andupdated as appropriate. ROS: Constitutional, HEENT, cardiovascular, pulmonary, gi and gu systems are negative, except as otherwise noted. OBJECTIVE: BP 112/62 mmHg Pulse 100 There is no weight on file to [...] orders placed or performed in visit on 08/25/14 Drug abuse screen (NL, RW) Result Value [...] Qual Urine Positive ASSESSMENT: OPIOID DEPENDENCE PLAN: ICD-9-CM 1. Uncomplicated opioid dependence 304.00 buprenorphine (SUBUTEX) 8 MG SUBL 2. Opiate dependence 304.00 Drug abuse screen (NL, RW) Buprenorphine Qual Urine MEDICATIONS: Orders Placed This Encounter Medications ??? buprenorphine (SUBUTEX) 8 MG SUBL Sig: Take 1.5 tab daily Dispense: 45 tablet Refill: 0 - Continue other medications without change FUTURE APPOINTMENTS: - Follow-up visit in 1 MONTH Edgar Alfredo MD, MD [facility] documented in this encounter Nursing Notes Suyapa Rodriguez CMA - 08/25/2014 4:39 PM CDT Chief Complaint Patient presents with ??? Recheck Medication Initial BP 112/62 mmHg Pulse 100 Estimated body mass index is 30.96 kg/(m^2) as calculated from the following: Height as of 01/07/13: 5' 5.5 (1.664 m). Weight as of 07/28/14: 189 lb (85.73 kg). BP completed using cuff size: large Suyapa Rodriguez MLT, CMA documented in this encounter Plan of Treatment Upcoming Encounters Date Type Specialty Care Team Description 11/15/2021 Office Visit [facility] [place] Luis Lex, DPCamryn [address] [place] [address] (Wo rk) documented as of this encounter Procedures Procedure Name Priority Date/Time Associated Comments Diagnosis BUPRENORPHINE QUAL Routine 08/25/2014 3:54 PM Opiate dependenc e Results for this URINE CDT (H) procedure are i n the results section. DRUG ABUSE SCREEN (NL, Routine 08/25/2014 3:54 PM Opiate depen dence Results for this RW) CDT (H) procedure are i n the results section. documented in this encounter Results Buprenorphine Qual Urine (08/25/2014 3:54 PM CDT) [facility] Method Time Signature Buprenorphine Positive [facility] Qual Urine Specimen Anatomical Collection Method Collection Time Receive d Time (Source) Location / / Volume Laterality Urine specimen 08/25/2014 3:54 PM 015 3:59 (specimen) CDT PM CDT Edgar Alfredo MD LAB - URINE ORDERABLES Performing Organization Address City/State/[facility] [place] [address] [facility] Building [address] [place], [place] [address] [facility] Drug abuse screen (NL, RW) (08/25/2014 3:54 PM CDT) Component Value Ref Test Analysis [...] Location / / Volume Laterality Urine specimen 08/25/2014 3:54 PM 015 3:59 (specimen) CDT PM CDT Edgar Alfredo MD LAB - URINE ORDERABLES Performing Organization Address City/[facility] [place] [address] [facility] Building [address] [facility] documented in this encounter Visit Diagnoses Diagnosis Uncomplicated opioid dependence (H) - Pr imary Opioid type dependence, unspecified documented in this encounter Care Teams Research Scientist Relationship Specialty Start Date End Date System, Provider Not In PCP - General Clinic 08/12/14 07/13/16 documented as of this encounter
--- OUTSIDE RECORDS SUMMARY | 2021-11-10 00:48 | XMS_ITS | Encounter Summary ---
:1980 Author Organization [place] Address [address] [place] [address] Care Team Providers Name Role Phone Edgar Alfredo MD Primary Care Provider Encounter Details Date Type Department Care Team Description 06/29/2014 Telephone [facility] Nithya Alfredo MD [place] [address] [facility] [address] [place], [place] [address] [phone] [place] [address] [phone] Social History Tobacco Use Types Packs/Day Years Used Date Current Every Day Smoker Cigarettes 0.1 10 Smokeless Tobacco: Never Used Comments: 5 cigarettes a day Alcohol Use Standard Drinks/Week Comments No 0 (1 standard drink = 0.6 oz pure alcoho l) Sex Assigned at Date Recorded Female 01/14/2020 10:57 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 documented as of this encounter Miscellaneous Notes Telephone Encounter - Edgar Alfredo MD - 06/29/2014 10:07 AM CDT Advised of positive cocaine in urine Still denies Advised she must explain how it got there next visit documented in this encounter Plan of Treatment Upcoming Encounters Date Type Specialty Care Team Description 11/15/2021 Office Visit Wound Care Luis Camara, [place] [address] [place] [id number] (Wo rk) documented as of this encounter Visit Diagnoses Not on filedocumented in this encounter Care Teams Armed Security Guard Relationship Specialty Start Date End Date Edgar Alfredo MD PCP - General Family Practice 04/13/12 08/11/[address] [phone] documented as of this encounter
--- OUTSIDE RECORDS SUMMARY | 2021-11-10 00:49 | XMS_ITS | Encounter Summary ---
:1980 Author Organization [place] Address [address] [facility] [place] [address] Care Team Providers Name Role Phone Edgar Alfredo MD Primary Care Provider Reason for Visit Reason Onset Date Comments Refill Request 09/07/2013 Please refax Subutex script Encounter Details Date Type Department Care Team Description 09/07/2013 Telephone [facility] Edgar Alfredo, Ref ill Request (Please [facility] [place] refax Subutex script) [address] [place] [address] [place] [phone] (Wo rk) Social History Tobacco Use Types Packs/Day Years Used Date Current Every Day Smoker Cigarettes 0.1 10 Smokeless Tobacco: Never Used Comments: 5 cigarettes a day Alcohol Use Standard Drinks/Week Comments No 0 (1 standard drink = 0.6 oz pure alcoho l) Sex Assigned at Date Recorded Female 01/14/2020 10:57 AM DRAW PRESS OPERATOR documented as of this encounter Miscellaneous Notes Telephone Encounter - Edgar Alfredo MD - 09/07/2013 12:12 PM CDT Given to patient Telephone Encounter - Loan Strange - 09/07/2013 11:22 AM CDT Please refax Subutex script. Pharmacy did not receive it. Pt is waiting in the pharmacy. documented in this encounter Plan of Treatment Upcoming Encounters Date Type Specialty Care Team Description 11/15/2021 Office Visit Wound Care Luis Camara, [place] [address] [place] [address] (Wo rk) documented as of this encounter Visit Diagnoses Not on filedocumented in this encounter Care Teams Economic Development Manager Relationship Specialty Start Date End Date Edgar Alfredo MD PCP - General Family Practice 04/13/12 08/11/[address] [facility] [address] [place] [address] documented as of this encounter
--- OUTSIDE RECORDS SUMMARY | 2021-11-10 00:49 | XMS_ITS | Encounter Summary ---
:1980 Author Organization [place] Address [address] [facility] [place] [address] Care Team Providers Name Role Phone Edgar Alfredo MD Primary Care Provider Reason for Visit Reason Onset Date Comments Recheck Medication Erroneous encounter-disregard 04/29/2013 Encounter Details Date Type Department Care Team Description 04/26/2013 Office Visit [facility] Edgar Alfredo ERRONEOUS Clinic Ashly Gauthier MD ENCOUNTER--DISREGARD [address] [place] (Primary Dx) [address] [place] [phone] Social History Tobacco Use Types Packs/Day Years Used Date Current Every Day Smoker Cigarettes 0.1 10 Smokeless Tobacco: Never Used Comments: 5 cigarettes a day Alcohol Use Standard Drinks/Week Comments No 0 (1 standard drink = 0.6 oz pure alcoho l) Sex Assigned at Date Recorded Female 01/14/2020 10:57 AM SOFTWARE SPECIALIST documented as of this encounter Progress Notes Edgar Alfredo MD - 04/29/2013 10:09 AM CDT This encounter was opened in error. Please disregard. documented in this encounter Plan of Treatment Upcoming Encounters Date Type Specialty Care Team Description 11/15/2021 Office Visit Wound Care [place], Luis Lex, [place] [address] [place], [place] [phone] (Wo rk) documented as of this encounter Visit Diagnoses Diagnosis ERRONEOUS ENCOUNTER--DISREGARD - Primary documented in this encounter Care Teams Putty Remover Relationship Specialty Start Date End Date Edgar Alfredo MD PCP - General Family Practice 04/13/12 08/11/[address] [place] [address] 700 [place] [phone] documented as of this encounter
--- OUTSIDE RECORDS SUMMARY | 2021-11-10 00:49 | XMS_ITS | Encounter Summary ---
:1980 Author Organization [place] Address [address] [place] [address] Care Team Providers Name Role Phone Edgar Alfredo MD Primary Care Provider Reason for Visit Reason Onset Date Comments Refill Request 08/26/2013 Encounter Details Date Type Department Care Team Description 08/26/2013 Refill [facility] Nithya Alfredo MD Refill Request [place] [address] [place] [address] [place], [place] [address] [phone] [place] [address] [phone] Social History Tobacco Use Types Packs/Day Years Used Date Current Every Day Smoker Cigarettes 0.1 10 Smokeless Tobacco: Never Used Comments: 5 cigarettes a day Alcohol Use Standard Drinks/Week Comments No 0 (1 standard drink = 0.6 oz pure alcoho l) Sex Assigned at Date Recorded Female 01/14/2020 10:57 AM YARN TEXTURE 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 documented as of this encounter Miscellaneous Notes Telephone Encounter - Edgar Alfredo MD - 08/26/2013 5:34 PM CDT Should have enough until 09/01/13 6 day bridge ordered Telephone Encounter - Suyapa Rodriguez CMA - 08/26/2013 4:43 PM CDT Patient called, could not get a ride for appt today, rescheduled for 09/07, needs bridge. Suyapa Rodriguez CMA, PUTTY TINTER MAKER documented in this encounter Plan of Treatment Upcoming Encounters Date Type Specialty Care Team Description 11/15/2021 Office Visit Wound Care Luis Camara, [place] [address] [place] [address] (Wo rk) documented as of this encounter Visit Diagnoses Diagnosis Opiate dependence (H) Opioid type dependence, unspecified documented in this encounter Care Teams Marketing Intern Relationship Specialty Start Date End Date Edgar Alfredo MD PCP - General Family Practice 04/13/12 08/11/[address] [facility] [address] [place] [phone] documented as of this encounter
--- OUTSIDE RECORDS SUMMARY | 2021-11-10 00:49 | XMS_ITS | Encounter Summary ---
:1980 Author Organization [place] Address [address] [place] [address] Care Team Providers Name Role Phone Edgar Alfredo MD Primary Care Provider Encounter Details Date Type Department Care Team Description 03/01/2013 Telephone [facility] Nithya Alfredo MD [place] [address] [facility] [address] [place], [place] [address] [phone] [place] [phone] Social History Tobacco Use Types Packs/Day Years Used Date Current Every Day Smoker Cigarettes 0.1 10 Smokeless Tobacco: Never Used Comments: 5 cigarettes a day Alcohol Use Standard Drinks/Week Comments No 0 (1 standard drink = 0.6 oz pure alcoho l) Sex Assigned at Date Recorded Female 01/14/2020 10:57 AM LICENSED MORTICIAN documented as of this encounter Miscellaneous Notes Telephone Encounter - Edgar Alfredo MD - 03/01/2013 11:49 AM CST Appointment cancelled as son has pneumonia 8 day bridge ordered Returned call; left message. NSED MORTICIAN documented in this encounter Plan of Treatment Upcoming Encounters Date Type Specialty Care Team Description 11/15/2021 Office Visit Wound Care Luis Camara DPM [address] [place] [address] (Wo rk) documented as of this encounter Visit Diagnoses Diagnosis Opiate dependence (H) - Primary Opioid type dependence, unspecified documented in this encounter Care Teams Concrete Buildings Assembler Relationship Specialty Start Date End Date Edgar Alfredo MD PCP - General Family Practice 04/13/12 08/11/[address] [place] [address] [place] [address] documented as of this encounter
--- OUTSIDE RECORDS SUMMARY | 2021-11-10 00:49 | XMS_ITS | Encounter Summary ---
:1980 Author Organization [place] Address [address] [place] [place] [address] Care Team Providers Name Role Phone Edgar Alfredo MD Primary Care Provider Reason for Visit Reason Comments Recheck Medication Encounter Details Date Type Department Care Team Description 03/25/2013 Office Visit [facility] Edgar Alfredo pendence (H) Clinic Ashly Gauthier MD (Primary Dx) [address] [place] [address] [place] [phone] Social History Tobacco Use Types Packs/Day Years Used Date Current Every Day Smoker Cigarettes 0.1 10 Smokeless Tobacco: Never Used Comments: 5 cigarettes a day Alcohol Use Standard Drinks/Week Comments No 0 (1 standard drink = 0.6 oz pure alcoho l) Sex Assigned at Date Recorded Female 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 Since last visit patient has been: doing well. There has been: no craving. Cues to use and relapse triggers have been: non-existent. Recovery program has been: weak. Contact with sponsor has been: no sponsor. Family and support system has been: helpful. Patient has been going to recovery meetings:not at all. Sobriety: no use since last visit Drug Screen: pt gives excuses Suboxone Dose: adequate Side Effects: none Plan for Suboxone for next period: no change Questions answered: yes Issues discussed: DIAGNOSED HYPOTHYROID; JUST STARTED ON MEDICATIONS; DEPRESSED; ANXIOUS Next visit: 1 MONTH 20 minutes were spent with patient with more than 50% of time spent in counseling and coordination of care; NEEDS TO LEAVE URINE BEFORE SUBOXONE WILL BE PRESCRIBED; ONE DAY DOSE CALLED; PATIENT WILL RETURN TOMORROW TO LEAVE URINE. TO SEE [facility]. INE TAILER documented in this encounter Nursing Notes 03/25/2013 3:00 PM CST >> SUYAPA MURRAY [facility] Mar 25, 2013 3:08 PM Patient presents with: Recheck Medication Initial BP 142/74 Pulse 84 Estimated Body mass index is 25.06 kg/(m^2) as calculated from the following: Height as of 01/07/13: 5' 5.5(1.664 m). Weight as of 01/07/13: 153 lb(69.4 kg). BP completed using cuff size: large Suyapa Murray, WAREHOUSE RECEIVING CLERK, HARVEST SUPERVISOR documented in this encounter Plan of Treatment Upcoming Encounters Date Type Specialty Care Team Description 11/15/2021 Office Visit Wound Care Luis Camara, [place] [address] [place] [address] (Wo rk) documented as of this encounter Procedures Procedure Name Priority Date/Time Associated Diagnosis Comme nts SEND OUTS MISC TEST Routine 03/26/2013 3:45 PM Re sults for this MACHINE TAILER procedure are i n the results section. DRUG ABUSE SCREEN Routine 03/25/2013 3:47 PM Opiate dependence Results for this (NL, RW) MACHINE TAILER (H) procedure are i n the results section. documented in this encounter Results Send outs misc test (03/26/2013 3:45 PM MACHINE TAILER) [facility] gist Method Time Signature Test Name BUPRENORPHINE [facility] Send Outs Urine [facility] Misc Test Specimen Result Negative [facility] Normal Range Negative [facility] for Send Outs Misc Test Specimen Anatomical Collection Method Collection Time Receive d Time (Source) Location / / Volume Laterality 03/26/2013 3:45 PM 4 3:53 MACHINE TAILER PM MACHINE TAILER Edgar Alfredo MD LAB - BLOOD ORDERABLES Performing Organization Address [facility] [place] [address] [facility] Building [address] [facility] Drug abuse screen (NL, RW) (03/25/2013 3:47 PM MACHINE TAILER) [facility] gist Method Time Signature Methamphetamine Negative [facility] Qual Urine Cocaine Qual Urine Negative NEG [facility] Cannabinoids Qual Negative NEG [facility] Urine MDMA Qual Urine Negative NEG [facility] Methadone Qual Negative NEG [facility] Urine Opiates Qualitative Negative NEG [facility] Urine Benzodiazepine Qual Negative NEG [facility] Urine Tricyc Anti Qual Negative NEG [facility] Urine Barbiturates Qual Negative NEG [facility] Urine PCP Qual Urine Negative NEG [facility] Amphetamine Qual Negative [facility] Urine Oxycodone Qual Negative NEG [facility] Urine Specimen Anatomical Collection Method Collection Time Receive d Time (Source) Location / / Volume Laterality Urine specimen 03/25/2013 3:47 PM 014 3:52 (specimen) MACHINE TAILER PM MACHINE TAILER Edgar Alfredo MD LAB - URINE ORDERABLES Performing Organization Address City/[facility] Phon e Number [place], [place] [phone] [place] [address] PRIMARY CARE Building [address] [facility] documented in this encounter Visit Diagnoses Diagnosis Opiate dependence (H) - Primary Opioid type dependence, unspecified documented in this encounter Care Teams Blood Bank Technician Relationship Specialty Start Date End Date Edgar Alfredo MD PCP - General Family Practice 04/13/12 08/11/[address] [facility] [address] [place] [address] documented as of this encounter
--- OUTSIDE RECORDS SUMMARY | 2021-11-10 00:49 | XMS_ITS | Encounter Summary ---
:1980 Author Organization [place] Address [address] [facility] [place] [address] Care Team Providers Name Role Phone Edgar Alfredo MD Primary Care Provider Reason for Visit Reason Onset Date Comments Medication Request 05/17/2013 Encounter Details Date Type Department Care Team Description 05/17/2013 Telephone [facility] Edgar Alfredo Ma rk, Medication Request Ashly VÁSQUEZ [address] [place] [address] [place] [phone] (Reinaldo molina) Social History Tobacco Use Types Packs/Day Years Used Date Current Every Day Smoker Cigarettes 0.1 10 Smokeless Tobacco: Never Used Comments: 5 cigarettes a day Alcohol Use Standard Drinks/Week Comments No 0 (1 standard drink = 0.6 oz pure alcoho l) Sex Assigned at Date Recorded Female 01/14/2020 10:57 AM MONUMENT 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 There are no appointments available on 05/31. She is currently scheduled for 06/07. If this is unacceptable, please let me know what time you can see her on 05/31. TY Crista Peoples, Dictaphone Operator Telephone Encounter - Edgar Alfredo MD - 05/17/2013 2:52 PM CDT Advised appointment 05/31/13 4 day bridge ordered Telephone Encounter - Natasha Lee - 05/17/2013 12:11 PM CDT Pt called clinic. Pt stated that she can not make her about today due to thyroid issues and would like a Bridge until her next appt. Pt can be reached at [phone] documented in this encounter Plan of Treatment Upcoming Encounters Date Type Specialty Care Team Description 11/15/2021 Office Visit Wound Care Luis Camara, [place] [address] [place] [address] (Wo rk) documented as of this encounter Visit Diagnoses Diagnosis Opiate dependence (H) - Primary Opioid type dependence, unspecified documented in this encounter Care Teams Racebook Writer Relationship Specialty Start Date End Date Edgar Alfredo MD PCP - General Family Practice 04/13/12 08/11/[address] [facility] [address] [place] [phone] documented as of this encounter
--- OUTSIDE RECORDS SUMMARY | 2021-11-10 00:49 | XMS_ITS | Encounter Summary ---
:1980 Author Organization [place] Address [address] [facility] [place] [address] Care Team Providers Name Role Phone Edgar Alfredo MD Primary Care Provider Reason for Visit Reason Comments Recheck Medication Encounter Details Date Type Department Care Team Description 09/30/2013 Office Visit [facility] Edgar Alfredo de pendence (H) Clinic Ashly Gauthier MD [address] [place] [phone] Social History Tobacco Use Types Packs/Day Years Used Date Current Every Day Smoker Cigarettes 0.1 10 Smokeless Tobacco: Never Used Comments: 5 cigarettes a day Alcohol Use Standard Drinks/Week Comments No 0 (1 standard drink = 0.6 oz pure alcoho l) Sex Assigned at Date Recorded Female 01/14/2020 10:57 AM VETERINARY PHYSIOLOGIST documented as of this encounter Last Filed Vital Signs Vital Sign Reading Time Taken Comments Blood Pressure 122/76 09/30/2013 4:55 PM CDT Pulse 90 09/30/2013 4:55 PM CDT Temperature - - Respiratory Rate - - Oxygen Saturation - - Inhaled Oxygen Concentration - - Weight - - Height - - Body Mass Index - - documented in this encounter Progress Notes Edgar Alfredo MD - 10/01/2013 9:29 AM CDT Stephani Parker is here for a periodic Suboxone follow-up. Since last visit patient has been: doing well. HERE 1 WEEK EARLY GOING ON VACATION WITH FAMILY AND SIBLINGS NEXT WEEK STILL TRYING TO ADJUST TO NEW MEDICATIONS There has been: no craving. Cues to [...] no change Questions answered: YES Issues discussed: DEALING WITH STRESS Next visit: 2 MONTHS 20 minutes were spent with patient with more than 50% of time spent in counseling and coordination of care; Discussed with patient many issues of addiction, relapse, and establishing a solid recovery program. documented in this encounter Nursing Notes Suyapa Rodriguez CMA - 09/30/2013 4:55 PM CDT Chief Complaint Patient presents with ??? Recheck Medication Initial BP 122/76 Pulse 90 Estimated body mass index is 25.06 kg/(m^2) as calculated from the following: Height as of 01/07/13: 5' 5.5 (1.664 m). Weight as of 01/07/13: 153 lb (69.4 kg). BP completed using cuff size: large Suyapa Rodriguez MLT, CMA documented in this encounter Plan of Treatment Upcoming Encounters Date Type Specialty Care Team Description 11/15/2021 Office Visit Wound Care Luis Camara DPM [address] [place] [phone] (Wo rk) documented as of this encounter Procedures Procedure Name Priority Date/Time Associated Comments Diagnosis BUPRENORPHINE QUAL Routine 09/30/2013 4:34 PM Opiate dependenc e Results for this URINE CDT (H) procedure are i n the results section. DRUG ABUSE SCREEN (NL, Routine 09/30/2013 4:34 PM Opiate depen dence Results for this RW) CDT (H) procedure are i n the results section. documented in this encounter Results Buprenorphine Qual Urine (09/30/2013 4:34 PM CDT) Patholo gist Method Time Signature Buprenorphine Positive [facility] LAB Qual Urine Specimen Anatomical Collection Method Collection Time Receive d Time (Source) Location / / Volume Laterality Urine specimen 09/30/2013 4:34 PM 014 4:39 (specimen) CDT PM CDT Edgar Alfredo MD LAB - URINE ORDERABLES Performing Organization Address City/State/[place] [address] [facility] Building [address] LAB Drug abuse screen (NL, RW) (09/30/2013 4:34 PM CDT) Component Value Ref Test Analysis [...] Location / / Volume Laterality Urine specimen 09/30/2013 4:34 PM 08/14/2 014 4:39 (specimen) CDT PM CDT Edgar Alfredo MD LAB - URINE ORDERABLES Performing Organization Address City/State/[facility] [place] [address] [facility] Building [address] [facility] LAB documented in this encounter Visit Diagnoses Diagnosis Opiate dependence (H) Opioid type dependence, unspecified documented in this encounter Care Teams Services Rep Relationship Specialty Start Date End Date Edgar Alfredo MD PCP - General Family Practice 04/13/12 08/11/[address] [place] [phone] documented as of this encounter
--- OUTSIDE RECORDS SUMMARY | 2021-11-10 00:49 | XMS_ITS | Encounter Summary ---
:1980 Author Organization [place] Address [address] [place] [address] Care Team Providers Name Role Phone Edgar Alfredo MD Primary Care Provider Reason for Visit Reason Onset Date Comments Refill Request 04/22/2013 Subox bridge Encounter Details Date Type Department Care Team Description 04/22/2013 Refill [facility] Pain Edgar Alfredo , Refill Request ([facility] MD lundberg) [address] [place] [phone] (Wo rk) Social History Tobacco Use Types Packs/Day Years Used Date Current Every Day Smoker Cigarettes 0.1 10 Smokeless Tobacco: Never Used Comments: 5 cigarettes a day Alcohol Use Standard Drinks/Week Comments No 0 (1 standard drink = 0.6 oz pure alcoho l) Sex Assigned at Date Recorded Female 01/14/2020 10:57 AM COMMISSARY 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 documented as of this encounter Miscellaneous Notes Telephone Encounter - Noy Ulloa - 04/22/2013 4:18 PM CST Pt requesting bridge to cover her until 04/26. ISSARY 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 documented in this encounter Plan of Treatment Upcoming Encounters Date Type Specialty Care Team Description 11/15/2021 Office Visit Wound Care Luis Camara DPM [address] [place] [address] (Wo rk) documented as of this encounter Visit Diagnoses Diagnosis Opiate dependence (H) - Primary Opioid type dependence, unspecified documented in this encounter Care Teams Control Director Relationship Specialty Start Date End Date Edgar Alfredo MD PCP - General Family Practice 04/13/12 08/11/[address] [place] [address] [address] [place] [phone] documented as of this encounter
--- OUTSIDE RECORDS SUMMARY | 2021-11-10 00:49 | XMS_ITS | Encounter Summary ---
:1980 Author Organization [place] Address [address] [facility] [place] [address] Care Team Providers Name Role Phone Edgar Alfredo MD Primary Care Provider Reason for Visit Reason Onset Date Comments Recheck Medication Erroneous encounter-disregard 04/26/2013 Encounter Details Date Type Department Care Team Description 04/22/2013 Office Visit [facility] Edgar Alfredo ERRONEOUS Clinic Ashly Gauthier MD ENCOUNTER--DISREGARD [address] [place] (Primary Dx) [address] [place] [phone] Social History Tobacco Use Types Packs/Day Years Used Date Current Every Day Smoker Cigarettes 0.1 10 Smokeless Tobacco: Never Used Comments: 5 cigarettes a day Alcohol Use Standard Drinks/Week Comments No 0 (1 standard drink = 0.6 oz pure alcoho l) Sex Assigned at Date Recorded Female 01/14/2020 10:57 AM BEHAVIORAL HEALTH COUNSELOR documented as of this encounter Progress Notes Edgar Alfredo MD - 04/26/2013 11:27 AM CDT This encounter was opened in error. Please disregard. documented in this encounter Plan of Treatment Upcoming Encounters Date Type Specialty Care Team Description 11/15/2021 Office Visit Wound Care [place], Luis Lex, [place] [address] [place], [place] [phone] (Wo rk) documented as of this encounter Visit Diagnoses Diagnosis ERRONEOUS ENCOUNTER--DISREGARD - Primary documented in this encounter Care Teams Steel Inspector Relationship Specialty Start Date End Date Edgar Alfredo MD PCP - General Family Practice 04/13/12 08/11/[address] [place] [address] [address] [place] [phone] documented as of this encounter
--- OUTSIDE RECORDS SUMMARY | 2021-11-10 00:49 | XMS_ITS | Encounter Summary ---
:1980 Author Organization [place] Address [address] [facility] [place] [address] Care Team Providers Name Role Phone Edgar Alfredo MD Primary Care Provider Reason for Visit Reason Comments Recheck Medication Encounter Details Date Type Department Care Team Description 06/08/2013 Office Visit [facility] Edgar Alfredo de pendence (H) Clinic Ashly Gauthier MD [address] [place] [phone] Social History Tobacco Use Types Packs/Day Years Used Date Current Every Day Smoker Cigarettes 0.1 10 Smokeless Tobacco: Never Used Comments: 5 cigarettes a day Alcohol Use Standard Drinks/Week Comments No 0 (1 standard drink = 0.6 oz pure alcoho l) Sex Assigned at Date Recorded Female 01/14/2020 10:57 AM SUPERVISOR NATURAL GAS PLANT documented as of this encounter Last Filed Vital Signs Vital Sign Reading Time Taken Comments Blood Pressure 132/52 06/08/2013 11:00 AM CDT Pulse 95 06/08/2013 11:00 AM CDT Temperature - - Respiratory Rate - - Oxygen Saturation - - Inhaled Oxygen Concentration - - Weight - - Height - - Body Mass Index - - documented in this encounter Progress Notes Edgar Alfredo MD - 06/08/2013 1:19 PM CDT Stephani Parker is here for a periodic Suboxone follow-up. Since last visit patient has been: doing well. HAS HAD DIFFICULTY WITH FEELING ILL - FROM HEPATITIS C, HYPOTHYROIDISM; SEEING SPECIALIST NEXT WEEK There has been: no craving. Cues to use and relapse triggers have been: mild. Recovery program has been: ignored. Contact with sponsor has been: no sponsor. Family and support system has been: helpful. LIVING WITH MOTHER; FATHER LIVES NEARBY. Patient has been going to recovery meetings:not at all. Sobriety: no use since last visit Drug Screen: obtained Suboxone Dose: adequate Side Effects: none Plan for Suboxone for next period: no change Questions answered: YES Issues discussed: DOSE REDUCTION NEXT WEEK Next visit: 1 MONTH 20 minutes were spent with patient with more than 50% of time spent in counseling and coordination of care; Discussed with patient many issues of addiction, relapse, and establishing a solid recovery program. documented in this encounter Nursing Notes Suyapa Rodriguez CMA - 06/08/2013 11:01 AM CDT Chief Complaint Patient presents with ??? Recheck Medication Initial BP 132/52 Pulse 95 Estimated body mass index is 25.06 kg/(m^2) as calculated from the following: Height as of 01/07/13: 5' 5.5 (1.664 m). Weight as of 01/07/13: 153 lb (69.4 kg). BP completed using cuff size: large Suyapa Rodriguez CMA, STRUCTURAL STEEL IRONWORKER documented in this encounter Plan of Treatment Upcoming Encounters Date Type Specialty Care Team Description 11/15/2021 Office Visit Wound Care Luis Camara, [place] [address] [place], [place] [phone] (Wo rk) documented as of this encounter Procedures Procedure Name Priority Date/Time Associated Comments Diagnosis BUPRENORPHINE QUAL Routine 06/08/2013 10:49 Opiate dependence Results for this URINE AM CDT (H) procedure are i n the results section. DRUG ABUSE SCREEN (NL, Routine 06/08/2013 10:49 Opiate depende nce Results for this RW) AM CDT (H) procedure are i n the results section. documented in this encounter Results Buprenorphine Qual Urine (06/08/2013 10:49 AM CDT) Patholo gist Method Time Signature Buprenorphine Negative [facility] LAB Qual Urine Specimen Anatomical Collection Method Collection Time Receive d Time (Source) Location / / Volume Laterality Urine specimen 06/08/2013 10:49 4 (specimen) AM CDT 10:54 AM CDT Edgar Alfredo MD LAB - URINE ORDERABLES Performing Organization Address City/[facility] [address] [facility] Building [address] [facility] LAB Drug abuse screen (NL, RW) (06/08/2013 10:49 AM CDT) Patholo gist Method Time Signature Methamphetamine Negative RJ [...] Location / / Volume Laterality Urine specimen 06/08/2013 10:49 4 (specimen) AM CDT 10:54 AM CDT Edgar Alfredo MD LAB - URINE ORDERABLES Performing Organization Address City/[facility] [place] [address] [facility] Building [address] [facility] LAB documented in this encounter Visit Diagnoses Diagnosis Opiate dependence (H) Opioid type dependence, unspecified documented in this encounter Care Teams Dehorner Relationship Specialty Start Date End Date Edgar Alfredo MD PCP - General Family Practice 04/13/12 08/11/[address] [place] [phone] documented as of this encounter
--- OUTSIDE RECORDS SUMMARY | 2021-11-10 00:49 | XMS_ITS | Encounter Summary ---
:1980 Author Organization [place] Address [address] [facility] [place] [address] Care Team Providers Name Role Phone Edgar Alfredo MD Primary Care Provider Reason for Visit Reason Onset Date Comments Refill Request 03/23/2013 suboxone Encounter Details Date Type Department Care Team Description 03/23/2013 Refill [facility] Edgar Alfredo, Ref ill Request [facility] (suboxone) [address] [place] [phone] (Wo rk) Social History Tobacco Use Types Packs/Day Years Used Date Current Every Day Smoker Cigarettes 0.1 10 Smokeless Tobacco: Never Used Comments: 5 cigarettes a day Alcohol Use Standard Drinks/Week Comments No 0 (1 standard drink = 0.6 oz pure alcoho l) Sex Assigned at Date Recorded Female 01/14/2020 10:57 AM WEDGER AND GLUER documented as of this encounter Miscellaneous Notes Telephone Encounter - Suyapa Rodriguez - 03/24/2013 9:00 AM CST Tried to call patient, number below not good. Number in chart not good either. ER AND GLUER Telephone Encounter - Edgar Alfredo MD - 03/23/2013 2:52 PM CST Has missed too many appointments No refills until seen ER AND GLUER Telephone Encounter - Suyapa Rodriguez - 03/23/2013 2:34 PM CST Patient called, missed appt. today due to transportation not arriving. Rescheduled for this Thurs. Says she is out of suboxone, needs some to tide her over. She can be reached at [phone]. Suyapa Rodriguez, PC ANALYST, BROWN SOURER ER AND GLUER documented in this encounter Plan of Treatment Upcoming Encounters Date Type Specialty Care Team Description 11/15/2021 Office Visit Wound Care Luis Camara, DPM [address] [place] [address] (Wo rk) documented as of this encounter Visit Diagnoses Not on filedocumented in this encounter Care Teams Professor Of Nursing Relationship Specialty Start Date End Date Edgar Alfredo MD PCP - General Family Practice 04/13/12 08/11/[address] [facility] [address] [place] [phone] documented as of this encounter
--- OUTSIDE RECORDS SUMMARY | 2021-11-10 00:49 | XMS_ITS | Encounter Summary ---
:1980 Author Organization [place] Address [address] [facility] [place] [address] Care Team Providers Name Role Phone Edgar Alfredo MD Primary Care Provider Reason for Visit Reason Onset Date Comments Medication Request 03/08/2013 Encounter Details Date Type Department Care Team Description 03/08/2013 Telephone [facility] Edgar Alfredo Ma rk, Medication Request Ashly VÁSQUEZ [address] [place] [phone] (Reinaldo molina) Social History Tobacco Use Types Packs/Day Years Used Date Current Every Day Smoker Cigarettes 0.1 10 Smokeless Tobacco: Never Used Comments: 5 cigarettes a day Alcohol Use Standard Drinks/Week Comments No 0 (1 standard drink = 0.6 oz pure alcoho l) Sex Assigned at Date Recorded Female 01/14/2020 10:57 AM ACTOR UNDERSTUDY documented as of this encounter Miscellaneous Notes Telephone Encounter - Edgar Alfredo MD - 03/08/2013 11:55 AM CST Missed appointment due to problems with medical transportation; not her fault Re-scheduled for 1 week 1 week bridge ordered R UNDERSTUDY Telephone Encounter - Violeta Hunter - 03/08/2013 11:32 AM CST Patient calling in. Needed to reschedule provider appointment originally scheduled for 03/08 does have an appointment scheduled for 03/15/13. Patient is calling to get a refill of her Subutex. Best number to reach patient - [phone] Thank you Violeta Knight Composite Engineer R UNDERSTUDY documented in this encounter Plan of Treatment Upcoming Encounters Date Type Specialty Care Team Description 11/15/2021 Office Visit Wound Care Luis Camara, [place] [address] [place] [address] (Wo rk) documented as of this encounter Visit Diagnoses Diagnosis Opiate dependence (H) - Primary Opioid type dependence, unspecified documented in this encounter Care Teams Business Practices Supervisor Relationship Specialty Start Date End Date Edgar Alfredo MD PCP - General Family Practice 04/13/12 08/11/[address] [place] [address] [address] [place] [phone] documented as of this encounter
--- OUTSIDE RECORDS SUMMARY | 2021-11-10 00:49 | XMS_ITS | Encounter Summary ---
:1980 Author Organization [place] Address [address] [place] [address] Care Team Providers Name Role Phone Edgar Alfredo MD Primary Care Provider Reason for Visit Reason Comments Recheck Medication Encounter Details Date Type Department Care Team Description 09/07/2013 Office Visit [facility] Edgar Alfredo de pendence (H) Clinic Ashly Gauthier MD [address] [place] [phone] Social History Tobacco Use Types Packs/Day Years Used Date Current Every Day Smoker Cigarettes 0.1 10 Smokeless Tobacco: Never Used Comments: 5 cigarettes a day Alcohol Use Standard Drinks/Week Comments No 0 (1 standard drink = 0.6 oz pure alcoho l) Sex Assigned at Date Recorded Female 01/14/2020 10:57 AM RESIDENTIAL COLLECTIONS documented as of this encounter Last Filed Vital Signs Vital Sign Reading Time Taken Comments Blood Pressure 109/75 09/07/2013 10:49 AM CDT Pulse 79 09/07/2013 10:49 AM CDT Temperature - - Respiratory Rate - - Oxygen Saturation - - Inhaled Oxygen Concentration - - Weight - - Height - - Body Mass Index - - documented in this encounter Progress Notes Edgar Alfredo MD - 09/07/2013 12:22 PM CDT Stephani Parker is here for a periodic Suboxone follow-up. Since last visit patient has been: stable. STILL STRUGGLING WITH ANXIETY WHICH CAUSES HER TO MISS APPOINTMENTS AND NOT GO TO RECOVERY MEETINGS SAW A PSYCHIATRIST - NOW ON EFFEXOR There has been: no craving. Cues to [...] Questions answered: YES Issues discussed: DEALING WITH ANXIETY Next visit: 1 MONTH 20 minutes were spent with patient with more than 50% of time spent in counseling and coordination of care; Discussed with patient many issues of addiction, relapse, and establishing a solid recovery program. documented in this encounter Plan of Treatment Upcoming Encounters Date Type Specialty Care Team Description 11/15/2021 Office Visit Wound Care Luis Camara, [place] [address] [place], [place] [address] (Wo rk) documented as of this encounter Procedures Procedure Name Priority Date/Time Associated Comments Diagnosis BUPRENORPHINE QUAL Routine 09/07/2013 10:32 Opiate dependence Results for this URINE AM CDT (H) procedure are i n the results section. DRUG ABUSE SCREEN (NL, Routine 09/07/2013 10:32 Opiate depende nce Results for this RW) AM CDT (H) procedure are i n the results section. documented in this encounter Results Buprenorphine Qual Urine (09/07/2013 10:32 AM CDT) [facility] gist Method Time Signature Buprenorphine Positive RJ LAB Qual Urine Specimen Anatomical Collection Method Collection Time Receive d Time (Source) Location / / Volume Laterality Urine specimen 09/07/2013 10:32 4 (specimen) AM CDT 10:33 AM CDT Edgar Alfredo MD LAB - URINE ORDERABLES Performing Organization Address City/State/ZIP [place] [address] [facility] Building [address] [facility] LAB Drug abuse screen (NL, RW) (09/07/2013 10:32 AM CDT) Component Value Ref Test Analysis [...] Location / / Volume Laterality Urine specimen 09/07/2013 10:32 4 (specimen) AM CDT 10:33 AM CDT Edgar Alfredo MD LAB - URINE ORDERABLES Performing Organization Address City/State/ZIP [place] [address] [facility] Building [address] [facility] LAB documented in this encounter Visit Diagnoses Diagnosis Opiate dependence (H) Opioid type dependence, unspecified documented in this encounter Care Teams Occupational Therapy Technician Relationship Specialty Start Date End Date Edgar Alfredo MD PCP - General Family Practice 04/13/12 08/11/[address] [place] [address] documented as of this encounter
--- OUTSIDE RECORDS SUMMARY | 2021-11-10 00:49 | XMS_ITS | Encounter Summary ---
:1980 Author Organization [place] Address [facility] [place] [address] Care Team Providers Name Role Phone Edgar lAfredo MD Primary Care Provider Reason for Visit Reason Onset Date Comments Refill Request 02/24/2013 Encounter Details Date Type Department Care Team Description 02/24/2013 [facility] Myles Llamas, Refill Request [place] [address] [place] [address] [place] [address] [address] [place], [place] [phone] (Wo rk) Social History Tobacco Use Types Packs/Day Years Used Date Current Every Day Smoker Cigarettes 0.1 10 Smokeless Tobacco: Never Used Comments: 5 cigarettes a day Alcohol Use Standard Drinks/Week Comments No 0 (1 standard drink = 0.6 oz pure alcoho l) Sex Assigned at Date Recorded Female 01/14/2020 10:57 AM INSTRUMENTS SALES 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 documented as of this encounter Miscellaneous Notes Telephone Encounter - Edgar Alfredo MD - 02/25/2013 11:45 AM CST 6 day bridge called to [facility] by phone RUMENTS SALES 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 Telephone Encounter - Nancy Bowden - 02/25/2013 10:51 AM CST Routed to Dr. Alfredo on 02/24/13. Will f/u per his instructions prn. Nancy Kelley RN February 25, 2013 10:51 AM RUMENTS SALES 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 Telephone Encounter - Sintia Colon - 02/24/2013 4:13 PM CST Pt called and I have advised her to call Dr. Alfredo's office ([phone]). She then called the front worker again wondering if Dr. Llamas could fill the suboxone since Dr. Alfredo is out and he refilled it in the past. I informed her that technically Dr. Llamas and Dr. Alfredo do not work together anymore and Dr. Alfredo has to refill his patients meds. She out completely out today. Please review the order that is cued up. Sintia Colon RN RUMENTS SALES 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 Telephone Encounter - April Mccauley - 02/24/2013 4:06 PM CST 1. Name of Med(s): suboxone 2. Last OV: 3. Current Dosage (if available): 4. Quantity Prescribed: 5. Prescribed Refills: 6. Si. Pharmacy: [facility] [address], suboxone current out RUMENTS SALES 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 Telephone Encounter - Ryan Molina - 02/24/2013 4:01 PM CST Called and said she needs a refill for Subutex. Dr. Llamas only prescribe through today. She sees 03/01. She can be reached at [phone] RUMENTS SALES 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 documented in this encounter Plan of Treatment Upcoming Encounters Date Type Specialty Care Team Description 11/15/2021 Office Visit Wound Care Luis Camara, [place] [address] [place] [address] (Wo rk) documented as of this encounter Visit Diagnoses Diagnosis Opiate dependence (H) - Primary Opioid type dependence, unspecified documented in this encounter Care Teams City Jailer Relationship Specialty Start Date End Date Edgar Alfredo MD PCP - General Family Practice 04/13/12 08/11/[address] [place] [phone] documented as of this encounter
--- OUTSIDE RECORDS SUMMARY | 2021-11-10 00:49 | XMS_ITS | Encounter Summary ---
:1980 Author Organization [place] Address [address] [facility] [place] [address] Care Team Providers Name Role Phone Edgar Alfredo MD Primary Care Provider Reason for Visit Reason Onset Date Comments Recheck Medication Erroneous encounter-disregard 05/17/2013 Encounter Details Date Type Department Care Team Description 05/17/2013 Office Visit [facility] Edgar Alfredo de pendence (H) (Primary Dx); Clinic Ashly Gauthier MD ERRONEOUS ENCOUNTER--DISREGARD [address] [place] [address] [place] [phone] Social History Tobacco Use Types Packs/Day Years Used Date Current Every Day Smoker Cigarettes 0.1 10 Smokeless Tobacco: Never Used Comments: 5 cigarettes a day Alcohol Use Standard Drinks/Week Comments No 0 (1 standard drink = 0.6 oz pure alcoho l) Sex Assigned at Date Recorded Female 01/14/2020 10:57 AM RESEARCH PROJECT COORDINATOR documented as of this encounter Progress Notes Edgar Alfredo MD - 05/17/2013 3:29 PM CDT This encounter was opened in error. Please disregard. documented in this encounter Plan of Treatment Upcoming Encounters Date Type Specialty Care Team Description 11/15/2021 Office Visit Wound Care Luis Camara, [place] [address] [place] [address] (Wo rk) documented as of this encounter Visit Diagnoses Diagnosis Opiate dependence (H) - Primary Opioid type dependence, unspecified ERRONEOUS ENCOUNTER--DISREGARD documented in this encounter Care Teams Radioactivity Technician Relationship Specialty Start Date End Date Edgar Alfredo MD PCP - General Family Practice 04/13/12 08/11/[address] [place] [address] 700 [place] [address] documented as of this encounter
--- OUTSIDE RECORDS SUMMARY | 2021-11-10 00:49 | XMS_ITS | Encounter Summary ---
:1980 Author Organization [place] Address [address] [place] [address] Care Team Providers Name Role Phone Edgar Alfredo MD Primary Care Provider System, Provider Not In Primary Care Provider Unavailable [facility], [facility] Primary Care Provide r Luis Fernando Magana Primary Care Provider [facility], [facility] Primary Care Provide r Tatyana Haas CANTEEN ATTENDANT TRANSITION COACH Unavailable [phone] Stephani Pina CANTEEN ATTENDANT TRANSITION COACH Unavailable [phone] Tatyana Haas CANTEEN ATTENDANT TRANSITION COACH Unavailable [phone] Stephani Pina CANTEEN ATTENDANT TRANSITION COACH Unavailable [phone] Juanis Levi Primary Care Provider Elsa Yeh RN Unavailable Unavailable Rogelio Treadwell MD Unavailable [phone] Luis CamaraM Unavailable [phone] Camryn Christina MD Unavailable Sintia Lange PA-C Unavailable Reason for Visit Reason Onset Date Comments Call To Schedule Appointment 08/26/2013 Encounter Details Date Type Department Care Team Description 08/26/2013 Telephone [facility] Edgar lAfredo Cal l To Schedule Clinic Ashly VÁSQUEZ Appointment [address] [place] [address] [place] [phone] (Wo rk) Social History Tobacco Use Types Packs/Day Years Used Date Current Every Day Smoker Cigarettes 0.1 10 Smokeless Tobacco: Never Used Comments: 5 cigarettes a day Alcohol Use Standard Drinks/Week Comments No 0 (1 standard drink = 0.6 oz pure alcoho l) Sex Assigned at Date Recorded Female 01/14/2020 10:57 AM CATALOGUE ILLUSTRATOR documented as of this encounter Miscellaneous Notes Telephone Encounter - Antonella Guillen - 08/27/2013 6:57 AM CDT Stephani calling to schedule an appointment with Dr. Alfredo. Please call patient to schedule. Thank you. documented in this encounter Plan of Treatment Upcoming Encounters Date Type Specialty Care Team Description 11/15/2021 Office Visit Wound Care Luis Camara, [place] [address] [place] [address] (Wo rk) documented as of this encounter Visit Diagnoses Not on filedocumented in this encounter Additional Health Concerns Infection Onset Date Last Indicated Resolved Time MRSAComment: Added from external infection. 11/07/2014 05/02/2021 documented as of this encounter Care Teams Tester Regulator Relationship Specialty Start Date End Date Edgar Alfredo MD PCP - General Family Practice 04/13/12 08/11/[address] [place] [address] [place] [phone] System, Provider Not PCP - General Clinic 08/12/14 7 [facility] PCP - General 07/14/[address] [place] [address] Luis Fernando Magana PCP - General Family Practice 12/07/16 01/19/[address] [address] [facility], [facility] PCP - General 01/20/[address] [address] Juanis Levi PCP - General Addiction Medicine 06/29/[address] [place] [phone] Tatyana Haas, CANTEEN ATTENDANT Assigned PCP 08/02/1801/28 TRANSITION COACH [facility] [address] [place] [address] Stephani Pina, Assigned PCP 01/30/20 12/30/20 CANTEEN ATTENDANT TRANSITION COACH [address] [place] [address] Tatyana Haas CANTEEN ATTENDANT Assigned PCP 12/31/20 2 TRANSITION COACH [facility] [address] [facility] [address] [place] [address] Stephani Pina, Assigned PCP 02/25/21 CANTEEN ATTENDANT TRANSITION COACH [address] [facility] [address] [place], [place] [address] Elsa Yeh, Registered Nurse Infectious Diseases 07/25/21 Rogelio Wilson Assigned Musculoskeletal 08/04/21 MD August Provider [address] [place] [phone] Luis Camara MD Podiatry 08/16/21 [place]IN Burnett [address] [place], [place] [phone] Camryn Christina, Assigned Surgical 09/01/21 09/07/21 MD Provider [address] [facility] [address] [place], [place] [phone] Sintia Lange PA-C Assigned Surgical 09/08/[address] Provider FLOOR [place], [place] [address] documented as of this encounter
--- OUTSIDE RECORDS SUMMARY | 2021-11-10 00:49 | XMS_ITS | Encounter Summary ---
:1980 Author Organization [place] Address [address] [facility] [place] [address] Care Team Providers Name Role Phone Edgar Alfredo MD Primary Care Provider Reason for Visit Reason Comments No Show Encounter Details Date Type Department Care Team Description 05/25/2013 Office Visit [facility] TONY Stout [facility] ROSLYN Patterson ENCOUNTER--DISREGARD [address] FRAN LANGE (Primary Dx) [address] [place], [place] [address] [place] [address] [place], [place] [phone] (Wo rk) Social History Tobacco Use Types Packs/Day Years Used Date Current Every Day Smoker Cigarettes 0.1 10 Smokeless Tobacco: Never Used Comments: 5 cigarettes a day Alcohol Use Standard Drinks/Week Comments No 0 (1 standard drink = 0.6 oz pure alcoho l) Sex Assigned at Date Recorded Female 01/14/2020 10:57 AM IV RN documented as of this encounter Progress Notes Tania Trevino CMA - 05/26/2013 10:39 AM CDT NO show documented in this encounter Plan of Treatment Upcoming Encounters Date Type Specialty Care Team Description 11/15/2021 Office Visit Wound Care Luis Camara, DPM [address] [place] [address] (Wo rk) documented as of this encounter Visit Diagnoses Diagnosis ERRONEOUS ENCOUNTER--DISREGARD - Primary documented in this encounter Care Teams Professor Of Voice Relationship Specialty Start Date End Date Edgar Alfredo MD PCP - General Family Practice 04/13/12 6 [address] [facility] 700 [place] [phone] documented as of this encounter
--- OUTSIDE RECORDS SUMMARY | 2021-11-10 00:49 | XMS_ITS | Encounter Summary ---
:1980 Author Organization [place] Address [facility] [place] [address] Care Team Providers Name Role Phone Edgar Alfredo MD Primary Care Provider Reason for Visit Reason Onset Date Comments Pt. Information/instruction 07/27/2013 Schedule denisa ointment Encounter Details Date Type Department Care Team Description 07/27/2013 Telephone [facility] Edgar Alfredo, Pt. Clinic Ashly VÁSQUEZ Information/instruction [address] [place] (Schedule appointment ) [address] [place] [phone] (Wo rk) Social History Tobacco Use Types Packs/Day Years Used Date Current Every Day Smoker Cigarettes 0.1 10 Smokeless Tobacco: Never Used Comments: 5 cigarettes a day Alcohol Use Standard Drinks/Week Comments No 0 (1 standard drink = 0.6 oz pure alcoho l) Sex Assigned at Date Recorded Female 01/14/2020 10:57 AM DISTANCE EDUCATION TEACHER documented as of this encounter Miscellaneous Notes Telephone Encounter - Antonella Guillen - 07/28/2013 7:11 AM CDT Patient called to schedule an appointment, please call to schedule. documented in this encounter Plan of Treatment Upcoming Encounters Date Type Specialty Care Team Description 11/15/2021 Office Visit Wound Care Luis Camara, [place] [address] [place], [place] [address] (Wo rk) documented as of this encounter Visit Diagnoses Not on filedocumented in this encounter Care Teams Tube Draw Helper Relationship Specialty Start Date End Date Edgar Alfredo MD PCP - General Family Practice 04/13/12 08/11/[address] [place] [phone] documented as of this encounter
--- OUTSIDE RECORDS SUMMARY | 2021-11-10 00:49 | XMS_ITS | Encounter Summary ---
:1980 Author Organization [place] Address [address] [facility] [place] [address] Care Team Providers Name Role Phone Edgar Alfredo MD Primary Care Provider Reason for Visit Reason Onset Date Comments Recheck Medication Erroneous encounter-disregard 03/18/2013 Encounter Details Date Type Department Care Team Description 03/15/2013 Office Visit [facility] Edgar Alfredo ERRONEOUS Clinic Ashly Gauthier MD ENCOUNTER--DISREGARD [address] [place] (Primary Dx) [address] [place] [phone] Social History Tobacco Use Types Packs/Day Years Used Date Current Every Day Smoker Cigarettes 0.1 10 Smokeless Tobacco: Never Used Comments: 5 cigarettes a day Alcohol Use Standard Drinks/Week Comments No 0 (1 standard drink = 0.6 oz pure alcoho l) Sex Assigned at Date Recorded Female 01/14/2020 10:57 AM SHIPPING SUPPORT documented as of this encounter Progress Notes Edgar Alfredo MD - 03/18/2013 10:38 AM CST This encounter was opened in error. Please disregard. PING SUPPORT documented in this encounter Plan of Treatment Upcoming Encounters Date Type Specialty Care Team Description 11/15/2021 Office Visit Wound Care Luis Camara, [place] [address] [place], [place] [phone] (Wo rk) documented as of this encounter Visit Diagnoses Diagnosis ERRONEOUS ENCOUNTER--DISREGARD - Primary documented in this encounter Care Teams Credit Reference Clerk Relationship Specialty Start Date End Date Edgar Alfredo MD PCP - General Family Practice 04/13/12 08/11/[address] [place] [address] 700 [place] [phone] documented as of this encounter
--- OUTSIDE RECORDS SUMMARY | 2021-11-10 00:49 | XMS_ITS | Encounter Summary ---
:1980 Author Organization [place] Address [address] [facility] [place] [address] Care Team Providers Name Role Phone Edgar Alfredo MD Primary Care Provider Reason for Visit Reason Onset Date Comments Recheck Medication Erroneous encounter-disregard 03/23/2013 Encounter Details Date Type Department Care Team Description 03/23/2013 Office Visit [facility] Edgar Alfredo ERRONEOUS Clinic Ashly Gauthier MD ENCOUNTER--DISREGARD [address] [place] (Primary Dx) [address] [place] [phone] Social History Tobacco Use Types Packs/Day Years Used Date Current Every Day Smoker Cigarettes 0.1 10 Smokeless Tobacco: Never Used Comments: 5 cigarettes a day Alcohol Use Standard Drinks/Week Comments No 0 (1 standard drink = 0.6 oz pure alcoho l) Sex Assigned at Date Recorded Female 01/14/2020 10:57 AM GAS LOAD DISPATCHER documented as of this encounter Progress Notes Edgar Alfredo MD - 03/23/2013 12:43 PM CST This encounter was opened in error. Please disregard. LOAD DISPATCHER documented in this encounter Plan of Treatment Upcoming Encounters Date Type Specialty Care Team Description 11/15/2021 Office Visit Wound Care Luis Camara, [place] [address] [place], [place] [phone] (Wo rk) documented as of this encounter Visit Diagnoses Diagnosis ERRONEOUS ENCOUNTER--DISREGARD - Primary documented in this encounter Care Teams Exposure Machine Operator Relationship Specialty Start Date End Date Edgar Alfredo MD PCP - General Family Practice 04/13/12 08/11/[address] [place] [address] 700 [place] [phone] documented as of this encounter
--- OUTSIDE RECORDS SUMMARY | 2021-11-10 00:49 | XMS_ITS | Encounter Summary ---
:1980 Author Organization [place] Address [address] [place] [address] Care Team Providers Name Role Phone Edgar Alfredo MD Primary Care Provider System, Provider Not In Primary Care Provider Unavailable [facility], [facility] Primary Care Provide r Luis Fernando Magana Primary Care Provider [facility] Primary Care Provide r Tatyana Haas RN INTAKE TRAFFIC RATE CLERK Unavailable [phone] Stephani Pina RN INTAKE TRAFFIC RATE CLERK Unavailable [phone] Tatyana Haas RN INTAKE TRAFFIC RATE CLERK Unavailable [phone] Stephani Pina RN INTAKE TRAFFIC RATE CLERK Unavailable [phone] Juanis Levi Primary Care Provider Elsa Yeh RN Unavailable Unavailable Rogelio Treadwell MD Unavailable [phone] Luis Camara DPM Unavailable [phone] Camryn Christina MD Unavailable Sintia Lange PA-C Unavailable Reason for Visit Reason Onset Date Comments Erroneous encounter-disregard 04/27/2013 Encounter Details Date Type Department Care Team Description 04/27/2013 Telephone [facility] Edgar Alfredo Err [facility] Ashly VÁSQUEZ encounter-disregard [address] [place] [address] [place] [phone] (Wo rk) Social History Tobacco Use Types Packs/Day Years Used Date Current Every Day Smoker Cigarettes 0.1 10 Smokeless Tobacco: Never Used Comments: 5 cigarettes a day Alcohol Use Standard Drinks/Week Comments No 0 (1 standard drink = 0.6 oz pure alcoho l) Sex Assigned at Date Recorded Female 01/14/2020 10:57 AM TELEGRAPH AND TELETYPE OPERATOR documented as of this encounter Plan of Treatment Upcoming Encounters Date Type Specialty Care Team Description 11/15/2021 Office Visit Wound Care Luis Camara, [place] [address] [place], [place] [phone] (Wo rk) documented as of this encounter Visit Diagnoses Not on filedocumented in this encounter Additional Health Concerns Infection Onset Date Last Indicated Resolved Time MRSAComment: Added from external infection. 11/07/2014/02/2021 documented as of this encounter Care Teams Art Installer Relationship Specialty Start Date End Date Edgar Alfredo MD PCP - General Family Practice 04/13/12 08/11/[address] [place] [address] [place] [phone] System, Provider Not PCP - General Clinic 08/12/14 7 In Clinic, [facility] PCP - General 07/14/[address] [phone] Luis Fernando Magana PCP - General Family Practice 12/07/16 01/19/[address] [phone] [facility], [facility] PCP - General 01/20/[address] [phone] Juanis Levi PCP - General Addiction Medicine 06/29/21 2450 [place] [phone] Tatyana Haas, RN INTAKE Assigned PCP 08/02/1801/28 TRAFFIC RATE CLERK [facility] [address] [facility] [address] [place], [place] [address] Stephani Pina, Assigned PCP 01/30/20 12/30/20 RN INTAKE TRAFFIC RATE CLERK [address] [place] [address] [place], [place] [address] Tatyana Haas, RN INTAKE Assigned PCP 12/31/20 2 TRAFFIC RATE CLERK [facility] [address] [facility] [address] [place], [place] [address] Stephani Pina, Assigned PCP 02/25/21 RN INTAKE TRAFFIC RATE CLERK [address] [place] [address] [place], [place] [address] Elsa Yeh, Registered Nurse Infectious Diseases 07/25/21 Rogelio Wilson Assigned Musculoskeletal 08/04/21 MD August Provider [address] [place], [place] [phone] Luis Camara MD Podiatry 08/16/21 [place] Burnett [address] [place], [place] [address] Camryn Christina, Assigned Surgical 09/01/21 09/07/21 MD Provider [address] [facility] 195 [place] [address] Sintia Lange PA-C Assigned Surgical 09/08/[address] Provider FLOOR [place], [place] [address] documented as of this encounter
--- OUTSIDE RECORDS SUMMARY | 2021-11-10 00:49 | XMS_ITS | Encounter Summary ---
:1980 Author Organization [place] Address [address] [place] [address] Care Team Providers Name Role Phone Edgar Alfredo MD Primary Care Provider Reason for Visit Reason Onset Date Comments Refill Request 07/05/2013 subutex Encounter Details Date Type Department Care Team Description 07/05/2013 Telephone [facility] Edgar Alfredo, Ref ill Request Clinic Ashly VÁSQUEZ (subutex) [address] [place] [address] [place] [phone] (Wo rk) Social History Tobacco Use Types Packs/Day Years Used Date Current Every Day Smoker Cigarettes 0.1 10 Smokeless Tobacco: Never Used Comments: 5 cigarettes a day Alcohol Use Standard Drinks/Week Comments No 0 (1 standard drink = 0.6 oz pure alcoho l) Sex Assigned at Date Recorded Female 01/14/2020 10:57 AM TECHNOLOGY TRAINER documented as of this encounter Miscellaneous Notes Telephone Encounter - Edgar Alfredo MD - 07/05/2013 3:42 PM CDT Bridge ordered Telephone Encounter - Suyapa Rodriguez CMA - 07/05/2013 3:22 PM CDT Patient had appt tomorrow, has to take kids to doctor, rescheduled for Thurs. Ran out of meds today,needs bridge. Suyapa Rodriguez CMA, LINING BRUSHER documented in this encounter Plan of Treatment Upcoming Encounters Date Type Specialty Care Team Description 11/15/2021 Office Visit Wound Care Luis Camara DPM [address] [place] [address] (Wo rk) documented as of this encounter Visit Diagnoses Diagnosis Opiate dependence (H) Opioid type dependence, unspecified documented in this encounter Care Teams Supervisor Color Making Relationship Specialty Start Date End Date Edgar Alfredo MD PCP - General Family Practice 04/13/12 08/11/[address] [facility] 700 [place] [address] documented as of this encounter
--- OUTSIDE RECORDS SUMMARY | 2021-11-10 00:49 | XMS_ITS | Encounter Summary ---
:1980 Author Organization [place] Address [address] [facility] [place] [address] Care Team Providers Name Role Phone Edgar Alfredo MD Primary Care Provider Encounter Details Date Type Department Care Team Description 05/28/2013 Medical Correspondence [facility] Edgar Alfredo MD Denial of Clinic Ashly Gauthier MD Buprenorphine [address]MG [address] 05/28/13 [address] [place] [address] [facility], [address] [place] [address] Social History Tobacco Use Types Packs/Day Years Used Date Current Every Day Smoker Cigarettes 0.1 10 Smokeless Tobacco: Never Used Comments: 5 cigarettes a day Alcohol Use Standard Drinks/Week Comments No 0 (1 standard drink = 0.6 oz pure alcoho l) Sex Assigned at Date Recorded Female 01/14/2020 10:57 AM SPOTTER DRIVER documented as of this encounter Plan of Treatment Upcoming Encounters Date Type Specialty Care Team Description 11/15/2021 Office Visit Wound Care Luis Camara DPM 909 [place] [address] (Wo rk) documented as of this encounter Visit Diagnoses Not on filedocumented in this encounter Care Teams Wireless Technician Relationship Specialty Start Date End Date Egdar Alfredo MD PCP - General Family Practice 04/13/12 08/11/14 [address] [place] [address] documented as of this encounter
--- OUTSIDE RECORDS SUMMARY | 2021-11-10 00:49 | XMS_ITS | Encounter Summary ---
:1980 Author Organization [place] Address [address] [facility] [place] [address] Care Team Providers Name Role Phone Edgar Alfredo MD Primary Care Provider Reason for Visit Reason Onset Date Comments Medication Request 03/15/2013 subutex Encounter Details Date Type Department Care Team Description 03/15/2013 Telephone [facility] Edgar Alfredo, [facility] ication Request Clinic Ashly VÁSQUEZ (subutex) [address] [place] [address] [place] [phone] (Wo rk) Social History Tobacco Use Types Packs/Day Years Used Date Current Every Day Smoker Cigarettes 0.1 10 Smokeless Tobacco: Never Used Comments: 5 cigarettes a day Alcohol Use Standard Drinks/Week Comments No 0 (1 standard drink = 0.6 oz pure alcoho l) Sex Assigned at Date Recorded Female 01/14/2020 10:57 AM ADMINISTRATOR documented as of this encounter Miscellaneous Notes Telephone Encounter - Suyapa Rodriguez - 03/15/2013 4:05 PM CST Pt notified NISTRATOR Telephone Encounter - Edgar Alfredo MD - 03/15/2013 3:37 PM CST 8 Day bridge called into [facility] on [employer] NISTRATOR Telephone Encounter - Suyapa Rodriguez - 03/15/2013 2:48 PM CST Patient called and left VM message at 12:55p today. Said she missed her appt. due to car trouble. Has new appt. on 03/23/13. She is out of her med. Needs new Rx. She can be reached at [phone]. Suyapa Rodriguez, CUT FILER, STUDENT COUNSELOR NISTRATOR documented in this encounter Plan of Treatment Upcoming Encounters Date Type Specialty Care Team Description 11/15/2021 Office Visit Wound Care Luis Camara, [place] [address] [place], [place] [address] (Wo rk) documented as of this encounter Visit Diagnoses Diagnosis Opiate dependence (H) - Primary Opioid type dependence, unspecified documented in this encounter Care Teams Industrial Trainer Relationship Specialty Start Date End Date Edgar Alfredo MD PCP - General Family Practice 04/13/12 08/11/[address] [facility] 700 [place] [phone] documented as of this encounter
--- OUTSIDE RECORDS SUMMARY | 2021-11-10 00:49 | XMS_ITS | Encounter Summary ---
:1980 Author Organization [place] Address [address] [facility] [place] [address] Care Team Providers Name Role Phone Edgar Alfredo MD Primary Care Provider Encounter Details Date Type Department Care Team Description 07/08/2013 [facility] Only [facility] Opi ate dependence (H) [place] [address] [place], [place] [address] Social History Tobacco Use Types Packs/Day Years Used Date Current Every Day Smoker Cigarettes 0.1 10 Smokeless Tobacco: Never Used Comments: 5 cigarettes a day Alcohol Use Standard Drinks/Week Comments No 0 (1 standard drink = 0.6 oz pure alcoho l) Sex Assigned at Date Recorded Female 01/14/2020 10:57 AM APPLICATIONS 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 DRUG ABUSE SCREEN (NL, Routine 07/08/2013 12:56 Opiate depende nce Results for this RW) PM CDT (H) procedure are i n the results section. documented in this encounter Results Buprenorphine Qual Urine (07/08/2013 12:56 PM CDT) [facility] gist Method Time Signature Buprenorphine Positive [facility] Qual Urine Specimen Anatomical Collection Method Collection Time Receive d Time (Source) Location / / Volume Laterality Urine specimen 07/08/2013 12:56 4 1:01 (specimen) PM CDT PM CDT Edgar Alfredo MD LAB - URINE ORDERABLES Performing Organization Address [facility] e [address] PRIMARY CARE Building [address] [facility] Drug abuse screen (NL, RW) (07/08/2013 12:56 PM CDT) [facility] gist Method Time Signature Methamphetamine Negative [...] Location / / Volume Laterality Urine specimen 07/08/2013 12:56 4 1:01 (specimen) PM CDT PM CDT Edgar Alfredo MD LAB - URINE ORDERABLES Performing Organization Address [facility] e Number [place], [place] [id number] [place] [address] PRIMARY CARE [facility] [address] [facility] documented in this encounter Visit Diagnoses Diagnosis Opiate dependence (H) Opioid type dependence, unspecified documented in this encounter Care Teams Die Mechanic Relationship Specialty Start Date End Date Edgar Alfredo MD PCP - General Family Practice 04/13/12 08/11/[address] [phone] documented as of this encounter
--- OUTSIDE RECORDS SUMMARY | 2021-11-10 00:49 | XMS_ITS | Encounter Summary ---
:1980 Author Organization [place] Address [address] [facility] [place] [address] Care Team Providers Name Role Phone Edgar Alfredo MD Primary Care Provider Reason for Visit Reason Onset Date Comments Recheck Medication Erroneous encounter-disregard 06/07/2013 Encounter Details Date Type Department Care Team Description 06/07/2013 Office Visit [facility] Edgar Alfredo ERRONEOUS Clinic Ashly Gauthier MD ENCOUNTER--DISREGARD [address] [place] (Primary Dx) [address] [place] [phone] Social History Tobacco Use Types Packs/Day Years Used Date Current Every Day Smoker Cigarettes 0.1 10 Smokeless Tobacco: Never Used Comments: 5 cigarettes a day Alcohol Use Standard Drinks/Week Comments No 0 (1 standard drink = 0.6 oz pure alcoho l) Sex Assigned at Date Recorded Female 01/14/2020 10:57 AM MILL WASHER documented as of this encounter Progress Notes Edgar Alfredo MD - 06/07/2013 3:14 PM CDT This encounter was opened in error. Please disregard. documented in this encounter Plan of Treatment Upcoming Encounters Date Type Specialty Care Team Description 11/15/2021 Office Visit Wound Care [place], Luis Lex, [place] [address] [place], [place] [phone] (Wo rk) documented as of this encounter Visit Diagnoses Diagnosis ERRONEOUS ENCOUNTER--DISREGARD - Primary documented in this encounter Care Teams Finishing Powder Press Operator Relationship Specialty Start Date End Date Edgar Alfredo MD PCP - General Family Practice 04/13/12 08/11/[address] [place] [address] [address] [place] [phone] documented as of this encounter
--- OUTSIDE RECORDS SUMMARY | 2021-11-10 00:49 | XMS_ITS | Encounter Summary ---
:1980 Author Organization [place] Address [address] [place] [address] Care Team Providers Name Role Phone Edgar Alfredo MD Primary Care Provider Reason for Visit Reason Comments Recheck Medication Encounter Details Date Type Department Care Team Description 07/08/2013 Office Visit [facility] Edgar Alfredo de pendence (H) Clinic Ashly Gauthier MD [address] [place] [address] [place] [phone] Social History Tobacco Use Types Packs/Day Years Used Date Current Every Day Smoker Cigarettes 0.1 10 Smokeless Tobacco: Never Used Comments: 5 cigarettes a day Alcohol Use Standard Drinks/Week Comments No 0 (1 standard drink = 0.6 oz pure alcoho l) Sex Assigned at Date Recorded Female 01/14/2020 10:57 AM CHARGE MASTER COORDINATOR documented as of this encounter Progress Notes Edgar Alfredo MD - 07/08/2013 2:25 PM CDT Patient unable to make appointment due to housing meeting Will refill Drug screen neg Reduce dose next visit documented in this encounter Plan of Treatment Upcoming Encounters Date Type Specialty Care Team Description 11/15/2021 Office Visit Wound Care Luis Camara DPM [address] [place] [address] (Wo rk) documented as of this encounter Visit Diagnoses Diagnosis Opiate dependence (H) Opioid type dependence, unspecified documented in this encounter Care Teams Stewarding Supervisor Relationship Specialty Start Date End Date Edgar Alfredo MD PCP - General Family Practice 04/13/12 08/11/14 [address] [address] [place] [address] documented as of this encounter
--- OUTSIDE RECORDS SUMMARY | 2021-11-10 00:49 | XMS_ITS | Encounter Summary ---
:1980 Author Organization [place] Address [address] [facility] [place] [address] Care Team Providers Name Role Phone Edgar Alfredo MD Primary Care Provider Reason for Visit Reason Onset Date Comments Refill Request 09/07/2013 Encounter Details Date Type Department Care Team Description 09/06/2013 Refill [facility] Nithya Alfredo MD Refill Request Joice [address] [place] [address] [place], [place] [address] [phone] [place] [phone] Social History Tobacco Use Types Packs/Day Years Used Date Current Every Day Smoker Cigarettes 0.1 10 Smokeless Tobacco: Never Used Comments: 5 cigarettes a day Alcohol Use Standard Drinks/Week Comments No 0 (1 standard drink = 0.6 oz pure alcoho l) Sex Assigned at Date Recorded Female 01/14/2020 10:57 AM MEDICAL SERVICES COORDINATOR documented as of this encounter Miscellaneous Notes Telephone Encounter - Antonella Guillen - 09/07/2013 8:14 AM CDT Pending Prescriptions: Disp Refills buPROPion (WELLBUTRIN XL) 150 MG 24 hr ta*30 tab* Sig: Take 1 tablet (150 mg) by mouth every evening Last office visit 08/02/13 documented in this encounter Plan of Treatment Upcoming Encounters Date Type Specialty Care Team Description 11/15/2021 Office Visit Wound Care Luis Camara, [place] [address] [place] [address] (Wo rk) documented as of this encounter Visit Diagnoses Not on filedocumented in this encounter Care Teams Toggle Press Folder And Feeder Relationship Specialty Start Date End Date Edgar Alfredo MD PCP - General Family Practice 04/13/12 08/11/14 [address] [facility] [address] [place] [address] documented as of this encounter
--- OUTSIDE RECORDS SUMMARY | 2021-11-10 00:49 | XMS_ITS | Encounter Summary ---
:1980 Author Organization [place] Address [address] [facility] [place] [address] Care Team Providers Name Role Phone Edgar Alfredo MD Primary Care Provider Reason for Visit Reason Onset Date Comments Erroneous encounter-disregard 03/04/2013 Encounter Details Date Type Department Care Team Description 03/01/2013 Office Visit [facility] Edgar Alfredo de pendence (H) (Primary Dx); Clinic Ashly Gauthier MD ERRONEOUS ENCOUNTER--DISREGARD [address] [place] [address] [place] [phone] Social History Tobacco Use Types Packs/Day Years Used Date Current Every Day Smoker Cigarettes 0.1 10 Smokeless Tobacco: Never Used Comments: 5 cigarettes a day Alcohol Use Standard Drinks/Week Comments No 0 (1 standard drink = 0.6 oz pure alcoho l) Sex Assigned at Date Recorded Female 01/14/2020 10:57 AM BREAKFAST HOSTESS documented as of this encounter Progress Notes Edgar Alfredo MD - 03/04/2013 10:08 AM CST This encounter was opened in error. Please disregard. KFAST HOSTESS documented in this encounter Plan of Treatment Upcoming Encounters Date Type Specialty Care Team Description 11/15/2021 Office Visit Wound Care Luis Camara, [place] [address] [place], [place] [address] (Wo rk) documented as of this encounter Visit Diagnoses Diagnosis Opiate dependence (H) - Primary Opioid type dependence, unspecified ERRONEOUS ENCOUNTER--DISREGARD documented in this encounter Care Teams Bathhouse Attendant Relationship Specialty Start Date End Date Edgar Alfredo MD PCP - General Family Practice 04/13/12 08/11/[address] [phone] documented as of this encounter
--- OUTSIDE RECORDS SUMMARY | 2021-11-10 00:49 | XMS_ITS | Encounter Summary ---
:1980 Author Organization [place] Address [facility] [place] [address] Care Team Providers Name Role Phone Edgar Alfredo MD Primary Care Provider Reason for Visit Reason Onset Date Comments Panel Management 06/21/2013 [email or web address] Encounter Details Date Type Department Care Team Description 06/21/2013 [facility] Panel Management Clinic Ashly Carver MD (phq9) [address] [place] [address] [place] [address] [address] [place] [phone] (Wo rk) Social History Tobacco Use Types Packs/Day Years Used Date Current Every Day Smoker Cigarettes 0.1 10 Smokeless Tobacco: Never Used Comments: 5 cigarettes a day Alcohol Use Standard Drinks/Week Comments No 0 (1 standard drink = 0.6 oz pure alcoho l) Sex Assigned at Date Recorded Female 01/14/2020 10:57 AM ELECTRONICS COMMODITY MANAGER documented as of this encounter Plan of Treatment Upcoming Encounters Date Type Specialty Care Team Description 11/15/2021 Office Visit Wound Care Luis Camara DPM [address] [place] [address] (Wo rk) documented as of this encounter Visit Diagnoses Not on filedocumented in this encounter Care Teams Preschool Assistant Principal Relationship Specialty Start Date End Date Edgar Alfredo MD PCP - General Family Practice 04/13/12 08/11/[address] [facility] [address] [place] [address] documented as of this encounter
--- OUTSIDE RECORDS SUMMARY | 2021-11-10 00:49 | XMS_ITS | Encounter Summary ---
:1980 Author Organization [place] Address [address] [place] [address] Care Team Providers Name Role Phone Edgar Alfredo MD Primary Care Provider Reason for Visit Reason Onset Date Comments Medication Request 05/31/2013 PA Encounter Details Date Type Department Care Team Description 05/31/2013 Telephone [facility] Edgar Alfredo, [facility] ication Request (PA) Clinic Ashly VÁSQUEZ [address] [place] [address] [place] [phone] (Wo rk) Social History Tobacco Use Types Packs/Day Years Used Date Current Every Day Smoker Cigarettes 0.1 10 Smokeless Tobacco: Never Used Comments: 5 cigarettes a day Alcohol Use Standard Drinks/Week Comments No 0 (1 standard drink = 0.6 oz pure alcoho l) Sex Assigned at Date Recorded Female 01/14/2020 10:57 AM ICU REGISTERED NURSE documented as of this encounter Miscellaneous Notes Telephone Encounter - Suyapa Rodriguez CMA - 06/01/2013 12:22 PM CDT PA approval received and faxed to pharmacy Telephone Encounter - Suyapa Rodriguez CMA - 05/31/2013 4:53 PM CDT PA in process Telephone Encounter - Edgar Alfredo MD - 05/31/2013 3:53 PM CDT Please try to get PA; tell them she needs Subutex because she is breast feeding Subutex called in Telephone Encounter - Suyapa Rodriguez CMA - 05/31/2013 3:24 PM CDT Patient called and left VM message, could not get appt til next Friday, needs bridge until then. Pharmacy # [phone] Suyapa Rodriguez CMA, MINE SAFETY ENGINEER documented in this encounter Plan of Treatment Upcoming Encounters Date Type Specialty Care Team Description 11/15/2021 Office Visit Wound Care Luis Camara, [place] [address] [place] [address] (Wo rk) documented as of this encounter Visit Diagnoses Diagnosis Opiate dependence (H) Opioid type dependence, unspecified documented in this encounter Care Teams Motors And Controls Tester Relationship Specialty Start Date End Date Edgar Alfredo MD PCP - General Family Practice 04/13/12 08/11/[address] [facility] [address] [place] [address] documented as of this encounter
--- OUTSIDE RECORDS SUMMARY | 2021-11-10 00:49 | XMS_ITS | Encounter Summary ---
:1980 Author Organization [place] Address [address] [facility] [place] [address] Care Team Providers Name Role Phone Edgar Alfredo MD Primary Care Provider Reason for Visit Reason Onset Date Comments Medication Request 07/30/2013 suboxone Encounter Details Date Type Department Care Team Description 07/30/2013 Telephone [facility] Edgar Alfredo, [facility] ication Request Clinic Ashly VÁSQUEZ (suboxone) [address] [place] [address] [place] [phone] (Wo rk) Social History Tobacco Use Types Packs/Day Years Used Date Current Every Day Smoker Cigarettes 0.1 10 Smokeless Tobacco: Never Used Comments: 5 cigarettes a day Alcohol Use Standard Drinks/Week Comments No 0 (1 standard drink = 0.6 oz pure alcoho l) Sex Assigned at Date Recorded Female 01/14/2020 10:57 AM COPYING MACHINE REPAIRER documented as of this encounter Miscellaneous Notes Telephone Encounter - Suyapa Rodriguez CMA - 07/30/2013 11:23 AM CDT Patient called and left VM message saying she misplaced her bottle of suboxone and needs more calledin to get to her appointment on Friday. She can be reached at [phone]. Suyapa Rodriguez CMA, PRESSER FIRST documented in this encounter Plan of Treatment Upcoming Encounters Date Type Specialty Care Team Description 11/15/2021 Office Visit Wound Care Luis Camara, [place] [address] [place] [address] (Wo rk) documented as of this encounter Visit Diagnoses Not on filedocumented in this encounter Care Teams Au Pair Relationship Specialty Start Date End Date Edgar Alfredo MD PCP - General Family Practice 04/13/12 08/11/[address] [place] [address] 700 [place] [phone] documented as of this encounter
--- OUTSIDE RECORDS SUMMARY | 2021-11-10 00:49 | XMS_ITS | Encounter Summary ---
:1980 Author Organization [place] Address [facility] [place] [address] Care Team Providers Name Role Phone Edgar Alfredo MD Primary Care Provider Reason for Visit Reason Comments Recheck Medication Encounter Details Date Type Department Care Team Description 04/27/[address] [facility] Edgar Alfredo de pendence (H) (Primary Dx); Clinic Ashly Gauthier MD Moderate major depression (H) [address] [place] [address] [place] [phone] Social History Tobacco Use Types Packs/Day Years Used Date Current Every Day Smoker Cigarettes 0.1 10 Smokeless Tobacco: Never Used Comments: 5 cigarettes a day Alcohol Use Standard Drinks/Week Comments No 0 (1 standard drink = 0.6 oz pure alcoho l) Sex Assigned at Date Recorded Female 01/14/2020 10:57 AM MOVIE 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 documented as of this encounter Last Filed Vital Signs Vital Sign Reading Time Taken Comments Blood Pressure 119/73 04/27/2013 12:10 PM CDT Pulse 107 04/27/2013 12:10 PM CDT Temperature - - Respiratory Rate - - Oxygen Saturation - - Inhaled Oxygen Concentration - - Weight - - Height - - Body Mass Index - - documented in this encounter Progress Notes Edgar Alfredo MD - 04/28/2013 12:55 PM CDT Stephani Parker is here for [...] no use since last visit Drug Screen: obtained; neg OPIATES; POS SUBOXONE Suboxone Dose: adequate Side Effects: none Plan for Suboxone for next period: no change Questions answered: YES Issues discussed: NEED FOR PRIMARY; STRESS AND COPING Next visit: 1 MONTH 20 minutes were spent with patient with more than 50% of time spent in counseling and coordination of care; Discussed with patient many issues of addiction, relapse, and establishing a solid recovery program. documented in this encounter Nursing Notes 04/27/2013 11:30 AM CDT >> Suyapa Rodriguez CMA [place] Apr 27, 2013 12:11 PM Patient presents with: Recheck Medication Initial BP 119/73 Pulse 107 Estimated Body mass index is 25.06 kg/(m^2) as calculated from the following: Height as of 01/07/13: 5' 5.5(1.664 m). Weight as of 01/07/13: 153 lb(69.4 kg). BP completed using cuff size: large Suyapa Rodriguez CMA, DRY CLEANING ATTENDANT documented in this encounter Plan of Treatment Upcoming Encounters Date Type Specialty Care Team Description 11/15/2021 Office Visit Wound Care Luis Camara DPM [address] [place], [place] [address] (Wo rk) documented as of this encounter Procedures Procedure Name Priority Date/Time Associated Diagnosis Comme nts SEND OUTS MISC TEST Routine 04/27/2013 11:57 AM R esults for this CDT procedure are i n the results section. DRUG ABUSE SCREEN Routine 04/27/2013 11:52 AM Opiate dependenc e Results for this (NL, RW) CDT (H) procedure are i n the results section. documented in this encounter Results Send outs misc test (04/27/2013 11:57 AM CDT) [facility] gist Method Time Signature Test Name BUPRENORPHINE [facility] Send Outs Urine [facility] Misc Test Specimen Result Positive [facility] LAB Normal Range Negative LAB for Send Outs Misc Test Specimen Anatomical Collection Method Collection Time Receive d Time (Source) Location / / Volume Laterality 04/27/2013 11:57 04/27/2013 AM CDT 12:45 PM CDT Edgar Alfredo MD LAB - BLOOD ORDERABLES Performing Organization Address [facility] [place] [address] [facility]IMARY [facility]ARE Building [address] [facility] LAB Drug abuse screen (NL, RW) (04/27/2013 11:52 AM CDT) [facility] Method Time Signature Methamphetamine Negative [facility] LAB [...] Location / / Volume Laterality Urine specimen 04/27/2013 11:52 4 (specimen) AM CDT 12:46 PM CDT Edgar Alfredo MD LAB - URINE ORDERABLES Performing Organization Address [facility] [place] [address] [facility] Building [address] [facility] documented in this encounter Visit Diagnoses Diagnosis Opiate dependence (H) - Primary Opioid type dependence, unspecified Moderate major depression (H) Major depressive disorder, single episod e, moderate documented in this encounter Care Teams Rehab Physician Relationship Specialty Start Date End Date Edgar Alfredo MD PCP - General Family Practice 04/13/12 08/11/[address] [phone] documented as of this encounter
--- OUTSIDE RECORDS SUMMARY | 2021-11-10 00:49 | XMS_ITS | Encounter Summary ---
:1980 Author Organization [place] Address [address] [facility] [place] [address] Care Team Providers Name Role Phone Edgar Alfredo MD Primary Care Provider Reason for Visit Reason Comments Recheck Medication Encounter Details Date Type Department Care Team Description 08/02/2013 Office Visit [facility] Edgar Alfredo de pendence (H) Clinic Ashly Gauthier MD [address] [place] [phone] Social History Tobacco Use Types Packs/Day Years Used Date Current Every Day Smoker Cigarettes 0.1 10 Smokeless Tobacco: Never Used Comments: 5 cigarettes a day Alcohol Use Standard Drinks/Week Comments No 0 (1 standard drink = 0.6 oz pure alcoho l) Sex Assigned at Date Recorded Female 01/14/2020 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 Since last visit patient has been: doing well. LOST SUBOXONE A FEW DAYS AGO; ADVISED OF OUR POLICY RE: NOT REPLACING LOST OR STOLEN MEDICATIONS ; BORROWED ONE FROM A FRIEND TO AVOID WITHDRAWAL MOVED INTO A NEW RENTED SECTION 8 HOUSE NEAR HER PARENTS - FOUR BEDROOMS; VERY PLEASED. STILL HAS OCCASIONAL ANXIETY AND DEPRESSION; DOESN'T WANT TO REDUCE SUBOXONE YET There has been: no craving. Cues to use and relapse triggers have been: non-existent. Recovery program has been: active. Contact with sponsor has been: no sponsor. Family and support system has been: helpful. Patient has been going to recovery meetings:sporadically. Sobriety: no use since last visit Drug Screen: obtained Suboxone Dose: adequate Side Effects: none Plan for Suboxone for next period: no change Questions answered: YES Issues discussed: NEED FOR A PSYCHIATRY APPOINTMENT AND THERAPY Next visit: 1 MONTH 20 minutes were spent with patient with more than 50% of time spent in counseling and coordination of care; Discussed with patient many issues of addiction, relapse, and establishing a solid recovery program. documented in this encounter Nursing Notes Suyapa Rodriguez CMA - 08/02/2013 10:36 AM CDT Chief Complaint Patient presents with ??? Recheck Medication Initial BP 114/74 Pulse 81 Estimated body mass index is 25.06 kg/(m^2) as calculated from the following: Height as of 01/07/13: 5' 5.5 (1.664 m). Weight as of 01/07/13: 153 lb (69.4 kg). BP completed using cuff size: miguelangel Rodriguez CMA, REHABILITATION SERVICES MANAGER documented in this encounter Plan of Treatment Upcoming Encounters Date Type Specialty Care Team Description 11/15/2021 Office Visit Wound Care Luis Camara, [place] [address] [place], [place] [phone] (Wo rk) documented as of this encounter Procedures Procedure Name Priority Date/Time Associated Comments Diagnosis BUPRENORPHINE QUAL Routine 08/02/2013 10:21 Opiate dependence Results for this URINE AM CDT (H) procedure are i n the results section. DRUG ABUSE SCREEN (NL, Routine 08/02/2013 10:21 Opiate depende nce Results for this RW) AM CDT (H) procedure are i n the results section. documented in this encounter Results Buprenorphine Qual Urine (08/02/2013 10:21 AM CDT) Patholo gist Method Time Signature Buprenorphine Positive [facility] Qual Urine Specimen Anatomical Collection Method Collection Time Receive d Time (Source) Location / / Volume Laterality Urine specimen 08/02/2013 10:21 4 (specimen) AM CDT 10:26 AM CDT Edgar Alfredo MD LAB - URINE ORDERABLES Performing Organization Address City/State/[place] [address] [facility] Building [address] [facility] Drug abuse screen (NL, RW) (08/02/2013 10:21 AM CDT) Component Value Ref Test Analysis Performed Pathologis t Range Method Time At Signature Methamphetamine Negative [facility] Qual Urine Cutoff for a negative methamphetamine is 1000 ng/mL or les s. Cocaine Qual Urine Negative [facility] Cutoff for a negative cocaine is 300 ng/mL or less. Cannabinoids Qual Negative [facility] Urine Cutoff for a negative cannabinoid is 50 ng/mL or less. MDMA Qual Urine Negative [facility] Cutoff for a negative MDMA (ecstasy) is 500 ng/mL or less. Methadone Qual Negative [facility] Urine Cutoff for a negative methadone is 300 ng/mL or less. Opiates Negative [facility] Qualitative Urine Cutoff for a negative opiate is 300 ng/mL or less. Benzodiazepine Negative [facility] Qual Urine Cutoff for a negative benzodiazepine is 300 ng/mL or less. Tricyc Anti Qual Negative [facility] Urine Cutoff for a negative tricyclic antidepressant is 1000 ng /mL or less. Barbiturates Qual Negative [facility] Urine Cutoff for a negative barbituate is 300 ng/mL or less. PCP Qual Urine Negative NEG [facility] Cutoff for a negative PCP is 25 ng/mL or less. Amphetamine Qual Negative [facility] Urine Cutoff for a negative amphetamine is 1000 ng/mL or less. Oxycodone Qual Negative NEG [facility] Urine Cutoff for a negative Oxycodone is 100 ng/mL or less. Specimen Anatomical Collection Method Collection Time Receive d Time (Source) Location / / Volume Laterality Urine specimen 08/02/2013 10:21 4 (specimen) AM CDT 10:26 AM CDT Edgar Alfredo MD LAB - URINE ORDERABLES Performing Organization Address City/State/[place] [address] [facility] Building [address] LAB documented in this encounter Visit Diagnoses Diagnosis Opiate dependence (H) Opioid type dependence, unspecified documented in this encounter Care Teams Superintendent Seed Mill Relationship Specialty Start Date End Date Edgar Alfredo MD PCP - General Family Practice 04/13/12 08/11/[address] [place] [address] documented as of this encounter
--- OUTSIDE RECORDS SUMMARY | 2021-11-10 00:49 | XMS_ITS | Encounter Summary ---
:1980 Author Organization [place] Address [address] [facility] [place] [address] Care Team Providers Name Role Phone Edgar Alferdo MD Primary Care Provider Encounter Details Date Type Department Care Team Description 03/25/2013 Office Visit [facility] Mando Hwang Opiate dependence (H) (Primary Dx); Clinic CONY Trejo Moderate major depression (H); [address] Anxiety [address] [place] [phone] Social History Tobacco Use Types Packs/Day Years Used Date Current Every Day Smoker Cigarettes 0.1 10 Smokeless Tobacco: Never Used Comments: 5 cigarettes a day Alcohol Use Standard Drinks/Week Comments No 0 (1 standard drink = 0.6 oz pure alcoho l) Sex Assigned at Date Recorded Female 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/2020 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 documented as of this encounter Progress Notes Mando Hwang LMFT - 03/25/2013 3:39 PM CST [facility] Behavioral Health Clinician Progress Note Screening Brief Intervention Referral Treatment (SBIRT) March 25, 2013 Patient Name: Stephani Parker Service Type: Commercial [id number] (15-30 Minute SBIRT Screen And / Or Intervention) Service Location: in clinic Session Start Time: 320pm Session End Time: 335pm Session Length: 15 minutes Attendees: Patient and PCP See Flowsheets for today's PHQ-9 and KAUR-7 results Previous PHQ-9: PHQ-9 SCORE (FMG) 09/15/2012 10/08/2012 01/07/2013 Total Score 6 5 10 Previous KAUR-7: KAUR-7 SCORE 04/10/2012 09/15/2012 Total Score 14 11 CHELSIE LEVEL: CHELSIE Score (Last Two) 04/10/2012 CHELSIE Raw Score 39 Activation Score 56.4 CHELSIE Level 3 DATA: History of Presenting Concern: Stephani Parker is a current medication assisted recovery patient of Dr. Alfredo's joining us here at the [facility] as Dr. Alfredo relocates his practice. This [facility] met with the patient in order to introduce our integrated care model, provide substance use and mental health screening, alongwith brief intervention and referral to appropriate resources in and out of the clinic, as necessary. Stephani was accompanied by her 8 month old son, and our interview was necessarily quite brief due to his presence and need for her attention. Stephani reports she has been working with Dr. Alfredo off and on since 2004. She began working with Dr. Alfredo due to heroin dependence. She reports she is established in her recovery at this point and denies any substance use outside of prescribed use for more than 12 months. Stephani 's PHQ-9 scores at 5 today, and his/her KAUR-7 scores at 9. This indicates possibly mild depressive symptoms and moderate anxiety symptoms. She acknowledges a history of depression and anxiety going back some time in her life. She reports she has been medicated for this through Dr. Alfredo, but has had to change providers for this since his change in practice. She is now establishing care at a clinic near her home, she says. She states she has worked with a therapist before but due to a move she has discontinued. [facility] invited patient to establish primary healthcare services here if they have need or would like to, informed her of medically assisted treatment/suboxone support group that will be meeting weekly, and offered [facility] services now or in the future, as needed by patient. SBIRT Screening Results: NIAAA: How many times in the past year have you had 4 or more drinks in a day??? 0 = Negative Screen AUDIT: 2 DAST-10: 0 Target Behavior(s): Assess current status of recovery and assess current behavioral health needs. Substances of choice: heroin by history Motivational Interviewing Goal: Patient continue to make healthy choices regarding substance use and engage in activities / supportive services that promote sobriety Session Objective: Assess current state of recovery and assess behavioral health needs. Brief Interventions: ESTABLISH / MAINTAIN RAPPORT: - Asked open-ended questions, provided affirmations, and used reflections to enhance trust and rapport - Positively reinforced insights, awareness, and healthy behavior choice(s) related to substance use - Patient is currently in the following stage of change: MAINTENANCE (Working to maintain change, with risk of relapse) SUPPORTED RECOVERY / MAINTENANCE: - Affirmed patient's successes and behavioral choices, while reinforcing their commitment to maintain the change - Explored interest in recovery resources, such as: medication-assisted recovery group and psychotherapy Change Talk Evoked: Desire to change Ability to change Reasons to change Need to change Committment to change Activation Taking steps Stage of Change / Progress: MAINTENANCE (Working to maintain change, with risk of relapse) Care Plan review completed: No Medication Review: No changes to current psychiatric medication(s) Medication Compliance: Yes Changes in Health Issues: None reported Tobacco Use: Yes - 3-4 cigarettes per day Assessment: Current Emotional / Mental Status: Risk status (Self / Other harm or suicidal ideation) Patient denies current fears or concerns for personal safety. Patient denies current or recent suicidal ideation or behaviors. Patient denies current or recent homicidal ideation or behaviors. Patient denies current or recent self injurious behavior or ideation. Patient denies other safety concerns. Appearance: Appropriate Eye Contact: Good Psychomotor Behavior: Normal Attitude: Cooperative Orientation: All Speech Rate / Production: Normal Volume: Normal Mood: Normal Affect: Appropriate Thought Content: Clear Thought Form: Coherent Logical Insight: Fair Diagnostic Impressions: The results of the clinical interview and screening tools indicate that patient is at Low Risk of abuse / misuse and relapse Provisional Diagnoses: 1. Opiate dependence 2. Moderate major depression 3. Anxiety Recommendations: Consider psychotherapy for recovery and mental health support. Collateral Reports Completed: KAUR-7 and PHQ-9 Plan: (Homework, other): Patient was given information about behavioral services and encouraged to schedule a follow up appointment with the clinic [facility] as needed. CONY Muñoz, [facility] AR CARE AIDE documented in this encounter Plan of Treatment Upcoming Encounters Date Type Specialty Care Team Description 11/15/2021 Office Visit Wound Care Luis Camara, [place] [address] [place] [address] (Wo rk) documented as of this encounter Visit Diagnoses Diagnosis Opiate dependence (H) - Primary Opioid type dependence, unspecified Moderate major depression (H) Major depressive disorder, single episod e, moderate Anxiety Anxiety state, unspecified documented in this encounter Care Teams Nuclear Fuels Reclamation Engineer Relationship Specialty Start Date End Date Edgar Alfredo MD PCP - General Family Practice 04/13/12 6 [address] [address] [place] [address] documented as of this encounter
--- OUTSIDE RECORDS SUMMARY | 2021-11-10 00:49 | XMS_ITS | Encounter Summary ---
:1980 Author Organization [place] Address [address] [facility] [address] Care Team Providers Name Role Phone Edgar Alfredo MD Primary Care Provider Reason for Visit Reason Onset Date Comments Call To Schedule Appointment 08/18/2013 Encounter Details Date Type Department Care Team Description 08/18/2013 Telephone [facility] Edgar Alfredo Cal l To Schedule Clinic Ashly VÁSQUEZ Appointment [address] [place] [phone] (Wo rk) Social History Tobacco Use Types Packs/Day Years Used Date Current Every Day Smoker Cigarettes 0.1 10 Smokeless Tobacco: Never Used Comments: 5 cigarettes a day Alcohol Use Standard Drinks/Week Comments No 0 (1 standard drink = 0.6 oz pure alcoho l) Sex Assigned at Date Recorded Female 01/14/2020 10:57 AM COGNOS documented as of this encounter Miscellaneous Notes Telephone Encounter - Suyapa Rodriguez CMA - 08/19/2013 4:12 PM CDT Done Telephone Encounter - Antonella Guillen - 08/19/2013 6:38 AM CDT Stephani calling to schedule an appointment with Dr. Alfredo. Please call patient to schedule. Thank you. documented in this encounter Plan of Treatment Upcoming Encounters Date Type Specialty Care Team Description 11/15/2021 Office Visit Wound Care Luis Camara, [place] [address] [place] [address] (Wo rk) documented as of this encounter Visit Diagnoses Not on filedocumented in this encounter Care Teams Elementary Spanish Teacher Relationship Specialty Start Date End Date Edgar Alfredo MD PCP - General Family Practice 04/13/12 08/11/[address] [place] [phone] documented as of this encounter
--- OUTSIDE RECORDS SUMMARY | 2021-11-10 00:50 | XMS_ITS | Encounter Summary ---
:1980 Author Organization [place] Address Counts include 234 beds at the [facility] [place] [address] Care Team Providers Name Role Phone Edgar Alfredo MD Primary Care Provider Reason for Visit Reason Onset Date Comments Call Back 02/03/2013 Encounter Details Date Type Department Care Team Description 02/03/2013 Telephone [facility] Nithya Alfredo MD Call Back [place] [address] [place] [address] [address] [place] [address] [phone] [place] [address] [phone] Social History Tobacco Use Types Packs/Day Years Used Date Current Every Day Smoker Cigarettes 0.1 10 Smokeless Tobacco: Never Used Comments: 5 cigarettes a day Alcohol Use Standard Drinks/Week Comments No 0 (1 standard drink = 0.6 oz pure alcoho l) Sex Assigned at Date Recorded Female 01/14/2020 10:57 AM 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 To come in for testing. rx faxed. Chapis Diaz RN NFORMATICS SUPPORT SPECIALIST Telephone Encounter - Edgar Alfredo MD - 02/04/2013 9:48 AM CST Refilled 1 week supply; needs to come in for drug screen within 1 week before further refills NFORMATICS SUPPORT SPECIALIST Telephone Encounter - Sintia Colon - 02/03/2013 3:55 PM CST Please see note below. Last OV was on 01/07/2013, refilled 01/07/2013 #42. Pt unable to come in tomorrow, but she did scheduled for 03/[address] Order cued up. Sintia Colon RN NFORMATICS SUPPORT SPECIALIST Telephone Encounter - April Mccauley - 02/03/2013 3:43 PM CST Patient called in stating that she has an appointment with tona tomorrow, 02/04/2013 bu is unable tocome at that time due to also needing to go to court, patient requesting a call back from tona to discuss next steps. Also subutex will be out tomorrow, phone number [phone] (new cellphone number). NFORMATICS SUPPORT SPECIALIST documented in this encounter Plan of Treatment Upcoming Encounters Date Type Specialty Care Team Description 11/15/2021 Office Visit Wound Care Luis Camara, DPM [address] [place], [place] [phone] (Wo rk) documented as of this encounter Visit Diagnoses Diagnosis Opiate dependence (H) - Primary Opioid type dependence, unspecified documented in this encounter Care Teams Polysomnography Tech Relationship Specialty Start Date End Date Edgar Alfredo MD PCP - General Family Practice 04/13/12 08/11/[address] [facility] [address] [place] [phone] documented as of this encounter
--- OUTSIDE RECORDS SUMMARY | 2021-11-10 00:50 | XMS_ITS | Encounter Summary ---
:1980 Author Organization [place] Address [facility] [place] [address] Care Team Providers Name Role Phone Edgar Alfredo MD Primary Care Provider Reason for Visit Reason Onset Date Comments Refill Request 11/16/2012 Encounter Details Date Type Department Care Team Description 11/16/[address] 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 Telephone Encounter - Marycarmen Spence - 11/16/2012 2:59 PM CDT Wellbutrin has refills per computer chart, refill for Subutex routed to provider to review, please advise. Marycarmen Spence RN Telephone Encounter - April Mccauley - 11/16/2012 2:41 PM CDT subutex & wellbutrin refill request documented in this encounter Plan of Treatment Upcoming Encounters Date Type Specialty Care Team Description 11/15/2021 Office Visit Wound Care Luis Camara DPM [address] [place] [address] (Wo rk) documented as of this encounter Visit Diagnoses Diagnosis Opiate dependence (H) - Primary Opioid type dependence, unspecified documented in this encounter Care Teams Fringe Weaver Relationship Specialty Start Date End Date Edgar Alfredo MD PCP - General Family Practice 04/13/12 08/11/[address] [place] [address] 700 [place] [address] documented as of this encounter
--- OUTSIDE RECORDS SUMMARY | 2021-11-10 00:50 | XMS_ITS | Encounter Summary ---
:1980 Author Organization [place] Address [facility] [place] [address] Care Team Providers Name Role Phone Edgar Alfredo MD Primary Care Provider Reason for Visit Reason Onset Date Comments Refill Request 09/15/2012 Bupropion Hcl ER (SR ) 150 mg Encounter Details Date Type Department Care Team Description 09/15/2012 Refill [facility] Edgar Alfredo, Ref ill Request Clinic Ashly VÁSQUEZ (Bupropion Hcl ER (SR) [address] [facility] [address] 150 mg) [facility] [address] [place] [phone] (Wo rk) Social History Tobacco Use Types Packs/Day Years Used Date Current Every Day Smoker Cigarettes 0.5 10 Smokeless Tobacco: Never Used Alcohol Use Standard Drinks/Week Comments No 0 (1 standard drink = 0.6 oz pure alcoho l) Sex Assigned at Date Recorded Female 01/14/2020 10:57 AM TYPE COPY EXAMINER documented as of this encounter Miscellaneous Notes Telephone Encounter - Marycarmen Spence - 09/16/2012 3:25 PM CDT This refill has been forwarded to the provider please see 09/15/2012 encounter. Marycarmen Spence RN Telephone Encounter - Nini Zheng RPH - 09/16/2012 3:15 PM CDT Will forward to . PHQ-9 is greater than 5. Nini Zheng, PharmD [facility] [phone] Telephone Encounter - Juanis Machuca - 09/15/2012 12:38 PM CDT Patient leaving town 09/18/12. Requesting to get refill before she leaves. Last Fill Date: 06/09/2012 Last Fill Quantity: 60 Last Office Visit: 09/15/2012 Date of Last PHQ-9 score: 09/15/2012 Last PHQ-9 score on record= 6 AST 31 04/10/2010 ALT 41 04/10/2010 Thanks, Juanis Machuca, [facility] [address] [place] [address] documented in this encounter Plan of Treatment Upcoming Encounters Date Type Specialty Care Team Description 11/15/2021 Office Visit Wound Care Luis Camara, [place] [address] [place] [address] (Wo rk) documented as of this encounter Visit Diagnoses Diagnosis Moderate major depression (H) - Primary Major depressive disorder, single episod e, moderate documented in this encounter Care Teams Forest Ranger Relationship Specialty Start Date End Date Edgar Alfredo MD PCP - General Family Practice 04/13/12 08/11/[address] [place] [phone] documented as of this encounter
--- OUTSIDE RECORDS SUMMARY | 2021-11-10 00:50 | XMS_ITS | Encounter Summary ---
:1980 Author Organization [place] Address [facility]0 [facility] [place] [address] Care Team Providers Name Role Phone Edgar Alfredo MD Primary Care Provider Encounter Details Date Type Department Care Team Description 02/15/2013 [facility] Only [facility] Opi ate dependence (H) [facility] [address] [place] [address] [address] [place] [phone] Social History Tobacco Use Types Packs/Day Years Used Date Current Every Day Smoker Cigarettes 0.1 10 Smokeless Tobacco: Never Used Comments: 5 cigarettes a day Alcohol Use Standard Drinks/Week Comments No 0 (1 standard drink = 0.6 oz pure alcoho l) Sex Assigned at Date Recorded Female 01/14/2020 10:57 AM AFTER SCHOOL CAREGIVER documented as of this encounter Plan of Treatment Upcoming Encounters Date Type Specialty Care Team Description 11/15/2021 Office Visit Wound Care Luis Camara, [place] [address] [place], [place] [phone] (Wo rk) documented as of this encounter Procedures Procedure Name Priority Date/Time Associated Diagnosis Comme nts DRUG ABUSE SCREEN 6 Routine 02/15/2013 2:56 PM Opiate dependen ce Results for this CHEM DEP URINE AFTER SCHOOL CAREGIVER (H) procedure are in ([facility]) the results section. documented in this encounter Results (ABNORMAL) Drug abuse screen 6 urine (chem dep) ([facility]) (02/15/2013 2:56 PM AFTER SCHOOL CAREGIVER) Component Value Ref Test Analysis Performed Pathologis t Range Method Time At Signature Amphetamine Qual Negative NEG [facility] Urine Cutoff for a negative amphetamine is 500 ng/mL or less. [facility] Barbiturates Qual Negative NEG [facility] Urine Cutoff for a negative barbiturate is 200 ng/mL or less. [facility] Benzodiazepine Negative NEG [facility] Qual Urine Cutoff for a negative benzodiazepine is 200 ng/mL or less . [facility] Cannabinoids Qual Negative NEG [facility] Urine Cutoff for a negative cannabinoid is 50 ng/mL or less. [facility] Cocaine Qual Positive NEG [facility] Urine Cutoff for a positive cocai ne is greater than 300 ng/mL. This is an unconfirmed [facility] screening result to be used for medical purposes only. LAB Testing performed using ToxSee method. (A) Ethanol Qual Negative NEG [facility] Urine Cutoff for a negative urine ethanol is 50 mg/dL or less. [facility] Opiates Negative NEG [facility] Qualitative Urine Cutoff for a negative opiate is 300 ng/mL or less. [facility] Specimen Anatomical Collection Method Collection Time Receive d Time (Source) Location / / Volume Laterality Urine specimen 02/15/2013 2:56 PM 013 3:01 (specimen) AFTER SCHOOL CAREGIVER PM AFTER SCHOOL CAREGIVER Edgar Alfredo MD LAB - URINE ORDERABLES Performing Organization Address City/State/ZIP Code Phon e Number [facility] [address] [place] [address] [facility] documented in this encounter Visit Diagnoses Diagnosis Opiate dependence (H) Opioid type dependence, unspecified documented in this encounter Care Teams Vocational Director Relationship Specialty Start Date End Date Edgar Alfredo MD PCP - General Family Practice 04/13/12 08/11/[address] [facility] [address] [place] [address] documented as of this encounter
--- OUTSIDE RECORDS SUMMARY | 2021-11-10 00:50 | XMS_ITS | Encounter Summary ---
:1980 Author Organization [place] Address [facility] [place] [address] Care Team Providers Name Role Phone Edgar Alfredo MD Primary Care Provider Reason for Visit Reason Onset Date Comments Refill Request 09/16/2012 bupropion Encounter Details Date Type Department Care Team Description 09/16/2012 Refill [facility] Edgar Alfredo, Ref ill Request Clinic Ashly VÁSQUEZ (bupropion ) [address] [facility] [address] [facility] [address] [place] [phone] (Wo rk) Social History Tobacco Use Types Packs/Day Years Used Date Current Every Day Smoker Cigarettes 0.5 10 Smokeless Tobacco: Never Used Alcohol Use Standard Drinks/Week Comments No 0 (1 standard drink = 0.6 oz pure alcoho l) Sex Assigned at Date Recorded Female 01/14/2020 10:57 AM MANAGER OB documented as of this encounter Miscellaneous Notes Telephone Encounter - Sintia Colon - 09/16/2012 11:02 AM CDT Pharmacy is requesting a refill of bupropion, triage unable to fill this medication per protocol. Last OV was on 09/15/2012 -- PHQ9 was a 6, refilled 06/09/2012 #60. Order is cued up for your review, please advise. Sintia Marshik, RN documented in this encounter Plan of Treatment Upcoming Encounters Date Type Specialty Care Team Description 11/15/2021 Office Visit Wound Care Luis Camara, [place] [address] [place] [address] (Wo rk) documented as of this encounter Visit Diagnoses Diagnosis Moderate major depression (H) - Primary Major depressive disorder, single episod e, moderate documented in this encounter Care Teams Fire Chief Deputy Relationship Specialty Start Date End Date Edgar Alfredo MD PCP - General Family Practice 04/13/12 08/11/[address] [phone] documented as of this encounter
--- OUTSIDE RECORDS SUMMARY | 2021-11-10 00:50 | XMS_ITS | Encounter Summary ---
:1980 Author Organization [place] Address [facility] [place] [address] Care Team Providers Name Role Phone Edgar Carbone MD Primary Care Provider Reason for Visit Reason Onset Date Comments Refill Request 06/29/2012 Encounter Details Date Type Department Care Team Description 06/29/[address] [facility] Nithya Carbone MD Refill Request [facility] [address] [place] [address] [address] [place] [address] [address] [phone] [place] [phone] Social History Tobacco Use Types Packs/Day Years Used Date Current Every Day Smoker Cigarettes 0.5 10 Smokeless Tobacco: Never Used Alcohol Use Standard Drinks/Week Comments No 0 (1 standard drink = 0.6 oz pure alcoho l) Sex Assigned at Date Recorded Female 01/14/2020 10:57 AM ADULT PROBATION OFFICER documented as of this encounter Miscellaneous Notes Addendum Note - Edgar Carbone MD - 07/01/2012 11:47 AM CDT Addended by: EDGAR CARBONE on: 07/01/2012 11:47 AM Modules accepted: Orders Telephone Encounter - Edgar Carbone MD - 07/01/2012 11:46 AM CDT Refilled but advised reduce dose to 2 mg daily to reduce risk of withdrawal # 22 ordered Addendum Note - Edgar Carbone MD - 07/01/2012 7:33 AM CDT Addended by: EDGAR CARBONE on: 07/01/2012 07:33 AM Modules accepted: Orders Telephone Encounter - Edgar Carbone MD - 07/01/2012 7:32 AM CDT I will take care of this Addendum Note - James Srinivasan MD - 06/30/2012 9:41 PM CDT Addended by: JAMES SRINIVASAN on: 06/30/2012 09:41 PM Modules accepted: Orders Telephone Encounter - James Srinivasan MD - 06/30/2012 9:40 PM CDT Please find out when Dr Carbone's back; I'll refill until then. James Srinivasan MD Addendum Note - Chapis Diaz - 06/30/2012 2:24 PM CDT Addended by: CHAPIS DIAZ on: 06/30/2012 02:24 PM Modules accepted: Orders Telephone Encounter - Chapis Diaz - 06/30/2012 2:22 PM CDT Medication cued up and rerouted to provider for review. Pt called back i do not see medication approved yesterday she is aware dr carbone and hugh out of office as of now, dr carbone off tomorrow i will route to both providers for review tomorrow. She would likelinda to call her back at [phone] Chapis Diaz RN Telephone Encounter - Chapis Diaz - 06/30/2012 2:20 PM CDT [phone] Telephone Encounter - Marycarmen Spence - 06/30/2012 12:46 PM CDT Request routed to provider to review, please advise. Marycarmen Spence RN Addendum Note - Fern Marinelli - 06/30/2012 12:25 PM CDT Addended by: FERN MARINELLI on: 06/30/2012 12:25 PM Modules accepted: Orders Telephone Encounter - Fern Marinelli - 06/30/2012 12:22 PM CDT Stephani had to reschedule her appointment for July 23 due to her insurance will not be eligible until July 18 and wondering if her script could be called in to the [facility] in [place]. Please callher at [phone] when this has been done. Telephone Encounter - Sintia Colon - 06/29/2012 11:07 AM CDT Patient is requesting a refill of subutex, triage unable to fill this medication per protocol. Last office visit 06/09, refilled 06/09/2012 #33. Upcoming appt on 07/02. Order is cued up for your review, please advise. Sintia Colon RN Telephone Encounter - April Mccauley - 06/29/2012 11:06 AM CDT Refill request per pt subutex documented in this encounter Plan of Treatment Upcoming Encounters Date Type Specialty Care Team Description 11/15/2021 Office Visit Wound Care Luis Camara, [place] [address] [place] [address] (Wo rk) documented as of this encounter Visit Diagnoses Diagnosis Opiate dependence (H) - Primary Opioid type dependence, unspecified documented in this encounter Care Teams Electric Clock Mechanic Relationship Specialty Start Date End Date Edgar Carbone MD PCP - General Family Practice 04/13/12 08/11/[address] [place] [phone] documented as of this encounter
--- OUTSIDE RECORDS SUMMARY | 2021-11-10 00:50 | XMS_ITS | Encounter Summary ---
:1980 Author Organization [place] Address [facility]0 [facility] [place] [address] Care Team Providers Name Role Phone Edgar Alfredo MD Primary Care Provider Reason for Visit Reason Onset Date Comments Nurse Advice Line 06/09/2012 Encounter Details Date Type Department Care Team Description 06/09/2012 Telephone [facility] Edgar Alfredo Ma rk, Nurse Advice Line Ashly VÁSQUEZ [address] [place] [address] [place] [address] [address] [place] [phone] (Wo rk) Social History Tobacco Use Types Packs/Day Years Used Date Current Every Day Smoker Cigarettes 0.5 10 Smokeless Tobacco: Never Used Alcohol Use Standard Drinks/Week Comments No 0 (1 standard drink = 0.6 oz pure alcoho l) Sex Assigned at Date Recorded Female 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/2020 10:57 AM INTERNET SPECIALIST documented as of this encounter Miscellaneous Notes Telephone Encounter - Chapis Diaz - 07/02/2012 3:09 PM CDT Old encounter closed Chapis Diaz RN Telephone Encounter - Chapis Diaz - 06/09/2012 2:38 PM CDT Plan doesn't cover subutex will call for pa [phone] Number [phone] Marin/info over phone will fax us decision Pending pa--called in already today--they will fax us today Their decision Chapis Diaz RN documented in this encounter Plan of Treatment Upcoming Encounters Date Type Specialty Care Team Description 11/15/2021 Office Visit Wound Care Luis Camara, [place] [address] [place] [address] (Wo rk) documented as of this encounter Visit Diagnoses Not on filedocumented in this encounter Care Teams Strip Machine Tender Relationship Specialty Start Date End Date Edgar Alfredo MD PCP - General Family Practice 04/13/12 08/11/[address] [place] [address] [place] [phone] documented as of this encounter
--- OUTSIDE RECORDS SUMMARY | 2021-11-10 00:50 | XMS_ITS | Encounter Summary ---
:1980 Author Organization [place] Address [facility] [place] [address] Care Team Providers Name Role Phone Edgar Alfredo MD Primary Care Provider Reason for Visit Reason Onset Date Comments Prior Authorization 05/20/2012 suboxone Encounter Details Date Type Department Care Team Description 05/20/2012 Telephone [facility] Edgar Alfredo Prior [facility] Ashly Gauthier MD (suboxone) [address] [place] [address] [place] [address] [address] [place] [phone] Social History Tobacco Use Types Packs/Day Years Used Date Current Every Day Smoker Cigarettes 0.5 10 Smokeless Tobacco: Never Used Alcohol Use Standard Drinks/Week Comments No 0 (1 standard drink = 0.6 oz pure alcoho l) Sex Assigned at Date Recorded Female 01/14/2020 10:57 AM OFFICE CLIN ASST documented as of this encounter Miscellaneous Notes Telephone Encounter - Marycarmen Spence - 05/20/2012 10:49 AM CDT PA requested for subxone from pharmacy, PA faxed with information in patient's chart and fax notation from pharmacy. Copy sent to abstract. Marycarmen Spence RN documented in this encounter Plan of Treatment Upcoming Encounters Date Type Specialty Care Team Description 11/15/2021 Office Visit Wound Care Luis Camara, [place] [address] [place] [address] (Wo rk) documented as of this encounter Visit Diagnoses Not on filedocumented in this encounter Care Teams Refuse Laborer Relationship Specialty Start Date End Date Edgar Alfredo MD PCP - General Family Practice 04/13/12 08/11/[address] [place] [phone] documented as of this encounter
--- OUTSIDE RECORDS SUMMARY | 2021-11-10 00:50 | XMS_ITS | Encounter Summary ---
:1980 Author Organization [place] Address [facility]0 [place] [address] Care Team Providers Name Role Phone Edgar Alfredo MD Primary Care Provider Reason for Visit Reason Onset Date Comments Refill Request 10/30/2012 subutex 8mg Encounter Details Date Type Department Care Team Description 10/30/2012 Refill [facility] Edgar Alfredo, Ref ill Request (subutex Clinic [place] 8mg) [address] [facility] 606 [facility] [address] [place] [phone] (Wo rk) Social History Tobacco Use Types Packs/Day Years Used Date Current Every Day Smoker Cigarettes 0.1 10 Smokeless Tobacco: Never Used Comments: 5 cigarettes a day Alcohol Use Standard Drinks/Week Comments No 0 (1 standard drink = 0.6 oz pure alcoho l) Sex Assigned at Date Recorded Female 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 I have cancelled the RX at [facility] and faxed it to the requested pharmacy. Sintia Colon RN Telephone Encounter - Sintia Colon - 10/30/2012 2:53 PM CDT RX for suboxon has been faxed to [facility]. Sintia Colon RN Telephone Encounter - Madonna Cody - 10/30/2012 10:12 AM CDT Stephani called and said that she needs a refill on her subutex on the 03 of November. She made her next appointment with Dr. Alfredo on the 10 of November. She moved so she has a new pharmacy and that is the [facility] off of [address] and their telephone number is [phone]. Any questions she can bereached at [phone]. Telephone Encounter - Natanael Lima - 10/30/2012 9:46 AM CDT Last Fill Date: 10-08-12 Last Quantity: 34 Danisha Ornelas Finished Goods Planner [facility]: [place] Please call patient with any questions at [phone] documented in this encounter Plan of Treatment Upcoming Encounters Date Type Specialty Care Team Description 11/15/2021 Office Visit Wound Care Luis Camara DPM [address] [place] [address] (Wo rk) documented as of this encounter Visit Diagnoses Diagnosis Opiate dependence (H) - Primary Opioid type dependence, unspecified documented in this encounter Care Teams Adoption Services Manager Relationship Specialty Start Date End Date Edgar Alfredo MD PCP - General Family Practice 04/13/12 08/11/[address] [phone] documented as of this encounter
--- OUTSIDE RECORDS SUMMARY | 2021-11-10 00:50 | XMS_ITS | Encounter Summary ---
:1980 Author Organization [place] Address [facility] [place] [address] Care Team Providers Name Role Phone None, Bfp Primary Care Provider Unavailable Reason for Visit Reason Onset Date Comments RECHECK PAP date Erroneous encounter-disregard 03/30/2012 Encounter Details Date Type Department Care Team Description 03/30/2012 Office Visit [facility] Edgar Alfredo ERRONEOUS Clinic Ashly Gauthier MD ENCOUNTER--DISREGARD [address] [place] [address] [place] [address] (Primary Dx) [address] [place] [phone] Social History Tobacco Use Types Packs/Day Years Used Date Current Every Day Smoker Cigarettes 0.5 10 Smokeless Tobacco: Never Used Alcohol Use Standard Drinks/Week Comments No 0 (1 standard drink = 0.6 oz pure alcoho l) Sex Assigned at Date Recorded Female 01/14/2020 10:57 AM COMMERCIAL LOAN OFFICER documented as of this encounter Progress Notes Edgar Alfredo MD - 03/30/2012 11:35 AM CST This encounter was opened in error. Please disregard. ERCIAL LOAN OFFICER documented in this encounter Plan of Treatment Upcoming Encounters Date Type Specialty Care Team Description 11/15/2021 Office Visit Wound Care Luis Camara, [place] [address] [place] [address] (Wo rk) documented as of this encounter Visit Diagnoses Diagnosis ERRONEOUS ENCOUNTER--DISREGARD - Primary documented in this encounter Care Teams Advertising Rep Relationship Specialty Start Date End Date None, Bfp PCP - General 03/02/99 04/12/12 documented as of this encounter
--- OUTSIDE RECORDS SUMMARY | 2021-11-10 00:50 | XMS_ITS | Encounter Summary ---
:1980 Author Organization [place] Address [facility] [place] [address] Care Team Providers Name Role Phone Edgar Alfredo MD Primary Care Provider Reason for Visit Reason Onset Date Comments RECHECK PHQ9-PCP patient nee ds DAP/letters Erroneous encounter-disregard 07/26/2012 Encounter Details Date Type Department Care Team Description 07/23/[address] [facility] Edgar Alfredo Moderate major depression (H) (Primary Dx); Clinic Ashly Gauthier MD ERRONEOUS ENCOUNTER--DISREGARD [address] [place] [address] [place] [address] [address] [place] [phone] Social History Tobacco Use Types Packs/Day Years Used Date Current Every Day Smoker Cigarettes 0.5 10 Smokeless Tobacco: Never Used Alcohol Use Standard Drinks/Week Comments No 0 (1 standard drink = 0.6 oz pure alcoho l) Sex Assigned at Date Recorded Female 01/14/2020 10:57 AM PARAMEDIC documented as of this encounter Progress Notes Edgar Alfredo MD - 07/26/2012 1:05 PM CDT This encounter was opened in error. Please disregard. documented in this encounter Plan of Treatment Upcoming Encounters Date Type Specialty Care Team Description 11/15/2021 Office Visit Wound Care Luis Camara, [place] [address] [place] [address] (Wo rk) documented as of this encounter Visit Diagnoses Diagnosis Moderate major depression (H) - Primary Major depressive disorder, single episod e, moderate ERRONEOUS ENCOUNTER--DISREGARD documented in this encounter Care Teams Pediatric Oncologist Relationship Specialty Start Date End Date Edgar Alfredo MD PCP - General Family Practice 04/13/12 08/11/[address] [facility] [address] [place] [address] documented as of this encounter
--- OUTSIDE RECORDS SUMMARY | 2021-11-10 00:50 | XMS_ITS | Encounter Summary ---
:1980 Author Organization [place] Address [facility]ly [facility]0 [facility] [place] [address] Care Team Providers Name Role Phone None, Bfp Primary Care Provider Unavailable Edgar Alfredo MD Primary Care Provider Reason for Visit Reason Comments Recheck Medication u/a Encounter Details Date Type Department Care Team Description 04/10/2012 Office Visit [facility] dEgar Alfredo ( Primary Dx); Clinic Ashly Gauthier MD complicated by chemical depend ency, antepartum (H); [address] [facility] Vitamin B12 deficiency (non anaemic); [address] Opiate dependence (H) [place] [phone] Social History Tobacco Use Types Packs/Day Years Used Date Current Every Day Smoker Cigarettes 0.5 10 Smokeless Tobacco: Never Used Alcohol Use Standard Drinks/Week Comments No 0 (1 standard drink = 0.6 oz pure alcoho l) Sex Assigned at Date Recorded Female 01/14/2020 10:57 AM TEAROOM HOST documented as of this encounter Last Filed Vital Signs Vital Sign Reading Time Taken Comments Blood Pressure 118/57 04/10/2012 4:20 PM TEAROOM HOST Pulse 88 04/10/2012 4:20 PM TEAROOM HOST Temperature 37.1 ??C (98.7 ??F) 04/10/2012 4:20 PM TEAROOM HOST Respiratory Rate - - Oxygen Saturation 98% 04/10/2012 4:20 PM TEAROOM HOST Inhaled Oxygen Concentration - - Weight 73 kg (161 lb) 04/10/2012 4:20 PM TEAROOM HOST Height 166.4 cm (5' 5.5) 04/10/2012 4:20 PM TEAROOM HOST Body Mass Index 26.38 04/10/2012 4:20 PM TEAROOM HOST documented in this encounter Progress Notes Edgar Alfredo MD - 04/12/2012 5:01 PM CST Stephani Parker is here for a periodic Suboxone follow-up. Since last visit patient has been: doing well. There has been: no craving. Cues to use and relapse triggers have been: mild. Recovery program has been: sporadic. Contact with sponsor has been: no sponsor. Family and support system has been: helpful. Patient has been going to recovery meetings:sporadically. Sobriety: no use since last visit Drug Screen: obtained Suboxone Dose: adequate Side Effects: none Plan for Suboxone for next period: decrease dose to 4 mg after 2 weeks Questions answered: yes Issues discussed: Subutex taper Next visit: 1 month 20 minutes were spent with patient with more than 50% of time spent in counseling and coordination of care; discussed tapering before delivery OOM HOST documented in this encounter Nursing Notes 04/10/2012 4:30 PM CST >> FERN MARINELLI Fri Apr 10, 2012 5:01 PM Script for subutex was faxed to the [facility]. >> BRYNN HAMMOND FriApr 10, 2012 4:23 PM Patient presents with: Recheck Medication - u/a Initial BP 118/57 Pulse 88 Temp 98.7 ??F (37.1 ??C) Ht 5' 5.5 (1.664 m) Wt 161 lb (73.029 kg) BMI 26.38 kg/m2 SpO2 98% ? No Estimated Body mass index is 26.38 kg/(m^2) as calculated from the following: Height as of this encounter: 5' 5.5(1.664 m). Weight as of this encounter: 161 lb(73.029 kg).. BP completed using cuff size: regular Brynn Hammond LPN documented in this encounter Plan of Treatment Upcoming Encounters Date Type Specialty Care Team Description 11/15/2021 Office Visit W[facility] Care [facility] Luis Vasquezel, DPM [address] [place] [address] (Wo rk) documented as of this encounter Procedures Procedure Name Priority Date/Time Associated Diagnosis Comme nts DRUG ABUSE SCREEN 6 Routine 04/10/2012 5:10 PM Re sults for this CHEM DEP URINE TEAROOM HOST procedure are in ([facility]) the results section. documented in this encounter Results Drug abuse screen 6 urine (chem dep) ([facility]) (04/10/2012 5:10 PM TEAROOM HOST) Component Value Ref Test Analysis Performed Pathologis t Range Method Time At Signature Amphetamine Qual Negative NEG [facility] Urine Cutoff for a negative amphetamine is 500 ng/mL or less. [facility] Barbiturates Qual Negative NEG [facility] Urine Cutoff for a negative barbiturate is 200 ng/mL or less. [facility] Benzodiazepine Negative NEG [facility] Qual Urine Cutoff for a negative benzodiazepine is 200 ng/mL or less . [facility] Cannabinoids Qual Negative NEG [facility] Urine Cutoff for a negative cannabinoid is 50 ng/mL or less. [facility] Cocaine Qual Negative NEG [facility] Urine Cutoff for a negative cocaine is 300 ng/mL or less. [facility] Ethanol Qual Negative NEG [facility] Urine Cutoff for a negative urine ethanol is 50 mg/dL or less. [facility] Opiates Negative NEG [facility] Qualitative Urine Cutoff for a negative opiate is 300 ng/mL or less. [facility] Specimen Anatomical Collection Method Collection Time Receive d Time (Source) Location / / Volume Laterality 04/10/2012 5:10 PM 3 7:14 TEAROOM HOST PM TEAROOM HOST Edgar Alfredo MD LAB - URINE ORDERABLES Performing Organization Address City/State/ZIP Code Phon e Number [facility] [address] [place] [address] [facility] documented in this encounter Visit Diagnoses Diagnosis Anxiety - Primary Anxiety state, unspecified complicated by chemical depend ency, antepartum Drug dependence, antepartum Vitamin B12 deficiency (non anaemic) Other B-complex deficiencies Opiate dependence (H) Opioid type dependence, unspecified documented in this encounter Care Teams Stars Coordinator Relationship Specialty Start Date End Date None, Bfp PCP - General 03/02/99 04/12/12 Edgar Alfredo MD PCP - General Family Practice 04/13/12 08/11/[address] [phone] documented as of this encounter
--- OUTSIDE RECORDS SUMMARY | 2021-11-10 00:50 | XMS_ITS | Encounter Summary ---
:1980 Author Organization [place] Address [facility]0 [facility] [place] [address] Care Team Providers Name Role Phone Edgar Workman MD Primary Care Provider Reason for Visit Reason Onset Date Comments Medication Request 08/14/2012 Encounter Details Date Type Department Care Team Description 08/14/2012 Telephone [facility] Edgar Workman Ma rk, Medication Request Ashly VÁSQUEZ [address] [place] [address] [place] [address] [address] [place] [phone] (Reinaldo rk) Social History Tobacco Use Types Packs/Day Years Used Date Current Every Day Smoker Cigarettes 0.5 10 Smokeless Tobacco: Never Used Alcohol Use Standard Drinks/Week Comments No 0 (1 standard drink = 0.6 oz pure alcoho l) Sex Assigned at Date Recorded Female 01/14/2020 10:57 AM HOOP COILER documented as of this encounter Miscellaneous Notes Telephone Encounter - Madonna Cody - 08/17/2012 11:19 AM CDT Script for subutex was faxed to the [facility] in [place]. Telephone Encounter - Marycarmen Spence - 08/17/2012 10:00 AM CDT Refill letter sent. Marycarmen Spence RN Addendum Note - Edgar Workman MD - 08/17/2012 9:54 AM CDT Addended by: EDGAR WORKMAN on: 08/17/2012 09:54 AM Modules accepted: Orders Telephone Encounter - Edgar Workman MD - 08/17/2012 9:53 AM CDT 30 day supply ordered Telephone Encounter - Jax Larsen MD - 08/14/2012 4:31 PM CDT Ok to wait for PCP Telephone Encounter - Chapis Diaz - 08/14/2012 1:49 PM CDT 08/02/12 last phq 9 = 5 will route to provider for review--needs below 5 for nursing protocol Not on nursing protocol, unable to fill medication. Please fill if appropriate. Chapis Diaz RN Telephone Encounter - Victoria Grant - 08/14/2012 1:26 PM CDT Pt calling- scheduled her next med check appt for suboxone check, but unable to get in prior to 09/15/2012. Runs out of suboxone 08/18/2012. 1) Name of Med(s): subutex 2) Current Dosage (if available): 8mg 3) Pharmacy: [facility] [place] 1) Name of Med(s): wellburtin 2) Current Dosage (if available): 150MG 3) Pharmacy: [facility] [place] Please call pt at [phone] with any additiona questions/concerns. documented in this encounter Plan of Treatment Upcoming Encounters Date Type Specialty Care Team Description 11/15/2021 Office Visit Wound Care Luis Camara, [place]VIN [address] [place] [address] (Wo rk) documented as of this encounter Visit Diagnoses Diagnosis Moderate major depression (H) - Primary Major depressive disorder, single episod e, moderate Opiate dependence (H) Opioid type dependence, unspecified documented in this encounter Care Teams Tail Board Worker Relationship Specialty Start Date End Date Edgar Workman MD PCP - General Family Practice 04/13/12 08/11/[address] [phone] documented as of this encounter
--- OUTSIDE RECORDS SUMMARY | 2021-11-10 00:50 | XMS_ITS | Encounter Summary ---
:1980 Author Organization [place] Address [facility] [place] [address] Care Team Providers Name Role Phone Edgar Alfredo MD Primary Care Provider Reason for Visit Reason Onset Date Comments Symptoms 07/22/2012 withdrawal from subo xone Encounter Details Date Type Department Care Team Description 07/22/2012 Telephone [facility] Edgar Alfredo, Sym ptoms (withdrawal Clinic Ashly VÁSQUEZ from suboxone ) [address] [facility] [address] [facility] [address] [place] [phone] (Wo rk) Social History Tobacco Use Types Packs/Day Years Used Date Current Every Day Smoker Cigarettes 0.5 10 Smokeless Tobacco: Never Used Alcohol Use Standard Drinks/Week Comments No 0 (1 standard drink = 0.6 oz pure alcoho l) Sex Assigned at Date Recorded Female 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 She had a Friday and now she states she feels like she is going through withdrawal from Subutex. She said she was getting a tapereddose of subutex during and took her last dose on Friday. She is wondering if she could getback on the subutex and then just use Tylenol or Ibuprofen for the pain control. I spoke with Dr. Alfredo about this who said that the plan was that the pain medications she is getting would keep her fromgoing through withdrawals. If this plan is not working, patient will need to speak with her nurse, who will have to speak with the doctor, who will then need to talk to Dr. Alfredo (pager # [phone]).I did tell patient this plan, who then gave the phone to her nurse who said that patient has not been receiving oxycodone every 4 hours as ordered- she has only requested it twice. Dr. Alfredo advised that she start getting oxycodone every 4 hours (which is 10 mLs) and see if that helps. The nurse said they would start with that plan. Patient told the nurse that she is concerned about the subutex because she just feels better when there is a constant level. Patient is sweating but nurse doesn't know ifthat is due to withdrawals, hormonal changes, or getting off some other medication. Sintia Colon RN documented in this encounter Plan of Treatment Upcoming Encounters Date Type Specialty Care Team Description 11/15/2021 Office Visit Wound Care Luis Camara DPM [address] [place] [address] (Wo rk) documented as of this encounter Visit Diagnoses Not on filedocumented in this encounter Care Teams Molding Cutter Relationship Specialty Start Date End Date Edgar Alfredo MD PCP - General Family Practice 04/13/12 08/11/14 [address] [facility] [address] [place] [phone] documented as of this encounter
--- OUTSIDE RECORDS SUMMARY | 2021-11-10 00:50 | XMS_ITS | Encounter Summary ---
:1980 Author Organization [place] Address [facility]ly [facility]0 [facility] [place] [address] Care Team Providers Name Role Phone Edgar Alfredo MD Primary Care Provider Reason for Visit Reason Onset Date Comments Call Back 07/14/2012 Encounter Details Date Type Department Care Team Description 07/14/2012 Telephone [facility] Nithya Alfredo MD Call Back [place] [address] [place], [place] [address]E [facility] [address] [place] [address] [address] [phone] [place] [phone] Social History Tobacco Use Types Packs/Day Years Used Date Current Every Day Smoker Cigarettes 0.5 10 Smokeless Tobacco: Never Used Alcohol Use Standard Drinks/Week Comments No 0 (1 standard drink = 0.6 oz pure alcoho l) Sex Assigned at Date Recorded Female 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 Alfredo's notation below. Advised a call back with any questions/concerns. Caroline Colon RN Telephone Encounter - Edgar Alfredo MD - 07/14/2012 9:48 PM CDT Dosage IS Subutex 2 mg per day; if insurance won't cover, may have to pay talamantes Tell pharmacy OK to fill as she needs this to avoid risk to the Telephone Encounter - Tigist Fraga - 07/14/2012 1:46 PM CDT Pt ([phone]) calling again, states pharmacy would not fill rx as it is too soon, states it may have to be rewritten as a different dosage. Caller informed Dr Alfredo no longer in clinic today and is not scheduled in clinic tomorrow, this message may not be addressed until -. Telephone Encounter - Caroline Colon - 07/14/2012 1:46 PM CDT Pharmacy faxed clinic-- per patient, the last fill was for one tablet but she was taking one and a half tablets daily. If this is correct, we need documentation of this as patient states that she is out and it is too soon to fill with the directions as written''. Please review and advise. Caroline Colon RN Telephone Encounter - Madonna Cody - 07/14/2012 11:28 AM CDT Script for subutex was faxed to the [facility] in [place]. Telephone Encounter - Edgar Alfredo MD - 07/14/2012 10:58 AM CDT Took more than prescribed; now has one left; for breech 07/20/12 Advised 2 mg per day until 07/19/12 Appointment here after 5 Subutex ordered Telephone Encounter - FlakitoTigist cosme - 07/14/2012 9:50 AM CDT Pt ([phone]) calling, states her dosage for subutex was lower recently, she is having troublewith this, wants to talk to Dr Alfredo. Caller also states she has her Csection scheduled for 07-20-12 and therefore will be unable to come for appt with Dr Alfredo on 07-23-12, please advise pt on rescheduling (07-23-12 appt is not cancelled yet) documented in this encounter Plan of Treatment Upcoming Encounters Date Type Specialty Care Team Description 11/15/2021 Office Visit Wound Care Luis Camara, DPM [address] [place], [place] [address] (Wo rk) documented as of this encounter Visit Diagnoses Diagnosis Opiate dependence (H) - Primary Opioid type dependence, unspecified documented in this encounter Care Teams Block Trader Relationship Specialty Start Date End Date Edgar Alfredo MD PCP - General Family Practice 04/13/12 08/11/[address] [facility] [address] [place] [phone] documented as of this encounter
--- OUTSIDE RECORDS SUMMARY | 2021-11-10 00:50 | XMS_ITS | Encounter Summary ---
:1980 Author Organization [place] Address [address] [place] [address]. [place] [address] Care Team Providers Name Role Phone Edgar Alfredo MD Primary Care Provider Reason for Visit Reason Comments RECHECK PHQ9 Recheck Medication No concerns Encounter Details Date Type Department Care Team Description 10/08/2012 Office Visit [facility] Edgar Alfredo Moderate major depression (H) (Primary Dx); Clinic Ashly Gauthier MD Opiate dependence (H) [address] [facility] [address] 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 documented as of this encounter Last Filed Vital Signs Vital Sign Reading Time Taken Comments Blood Pressure 122/73 10/08/2012 1:39 PM CDT Pulse 99 10/08/2012 1:39 PM CDT Temperature 36.8 ??C (98.2 ??F) 10/08/2012 1:39 PM CDT Respiratory Rate - - Oxygen Saturation 97% 10/08/2012 1:39 PM CDT Inhaled Oxygen Concentration - - Weight 65.9 kg (145 lb 3.2 oz) 10/08/2012 1:39 PM CDT Height 166.4 cm (5' 5.5) 10/08/2012 1:39 PM CDT Body Mass Index 23.8 10/08/2012 1:39 PM CDT documented in this encounter Progress Notes Edgar Alfredo MD - 10/09/2012 12:39 PM CDT Stephani Parker is here for a periodic Suboxone follow-up. Since last visit patient has been: stable. There has been: no craving. Cues to [...] no change Questions answered: yes Issues discussed: Discussed with patient many issues of addiction, relapse, and establishing a solidrecovery program. Next visit: 5 weeks 20 minutes were spent with patient with more than 50% of time spent in counseling and coordination of care; antidepressants helping; refilled documented in this encounter Nursing Notes 10/08/2012 1:15 PM CDT >> ANN MARIE JOHNSON [facility] Oct 08, 2012 2:00 PM Suboxone RX was faxed to [facility] Ann Marie Johnson [facility] >> SHANI LIND [facility] Oct 08, 2012 1:40 PM Patient presents with: RECHECK - PHQ9 Recheck Medication - No concerns Initial BP 122/73 Pulse 99 Temp 98.2 ??F (36.8 ??C) (Oral) Ht 5' 5.5 (1.664 m) Wt 145 lb 3.2 oz (65.862 kg) BMI 23.79 kg/m2 SpO2 97% Estimated Body mass index is 23.79 kg/(m^2) as calculated from the following: Height as of this encounter: 5' 5.5(1.664 m). Weight as of this encounter: 145 lb 3.2 oz(65.862 kg). BP completed using cuff size regular lt Arm Shani Lind CMA documented in this encounter Plan of Treatment Upcoming Encounters Date Type Specialty Care Team Description 11/15/2021 Office Visit Wound Care Luis Camara, CALVIN [address] [place] [address] (Wo rk) documented as of this encounter Procedures Procedure Name Priority Date/Time Associated Diagnosis Comme nts DRUG ABUSE SCREEN 6 Routine 10/08/2012 2:34 PM Opiate dependen ce Results for this CHEM DEP URINE CDT (H) procedure are in ([facility]) the results section. documented in this encounter Results (ABNORMAL) Drug abuse screen 6 urine (chem dep) ([facility]) (10/08/2012 2:34 PM CDT) Component Value Ref Test Analysis Performed Pathologis t Range Method Time At Signature Amphetamine Qual Positive NEG [facility] Urine Cutoff for a positive amphetamine is greater th an 500 ng/mL. This is an [facility] unconfirmed screening result to be used for medical purpose s only. (A) LAB Barbiturates Qual Negative NEG [facility] Urine Cutoff for a negative barbiturate is 200 ng/mL or less. [facility] Benzodiazepine Negative NEG [facility] Qual Urine Cutoff for a negative benzodiazepine is 200 ng/mL or less . [facility] Cannabinoids Qual Negative NEG [facility] Urine Cutoff for a negative cannabinoid is 50 ng/mL or less. [facility] Cocaine Qual Negative NEG [facility] Urine Cutoff for a negative cocaine is 300 ng/mL or less. [facility] Ethanol Qual Negative NEG [facility] Urine Cutoff for a negative urine ethanol is 50 mg/dL or less. [facility] Opiates Negative NEG [facility] Qualitative Urine Cutoff for a negative opiate is 300 ng/mL or less. [facility] Specimen Anatomical Collection Method Collection Time Receive d Time (Source) Location / / Volume Laterality Urine specimen 10/08/2012 2:34 PM 013 2:35 (specimen) CDT PM CDT Edgar Alfredo MD LAB - URINE ORDERABLES Performing Organization Address City/State/ZIP Code Phon e Number [facility] [address] [place] [address] [facility] documented in this encounter Visit Diagnoses Diagnosis Moderate major depression (H) - Primary Major depressive disorder, single episod e, moderate Opiate dependence (H) Opioid type dependence, unspecified documented in this encounter Care Teams Student Development Coordinator Relationship Specialty Start Date End Date Edgar Alfredo MD PCP - General Family Practice 04/13/12 08/11/[address] [facility] [address] [place] [phone] documented as of this encounter
--- OUTSIDE RECORDS SUMMARY | 2021-11-10 00:50 | XMS_ITS | Encounter Summary ---
:1980 Author Organization [place] Address [address] [place] [address]. [place] [address] Care Team Providers Name Role Phone Edgar Carbone MD Primary Care Provider Reason for Visit Reason Onset Date Comments Medication Request 02/12/2013 Encounter Details Date Type Department Care Team Description 02/12/2013 Telephone [employer] Edgar Carbone Ma, Medication Request Ashly VÁSQUEZ [address] [place] [address] [place] [address] [address] [place] [phone] (Reinaldo rk) Social History Tobacco Use Types Packs/Day Years Used Date Current Every Day Smoker Cigarettes 0.1 10 Smokeless Tobacco: Never Used Comments: 5 cigarettes a day Alcohol Use Standard Drinks/Week Comments No 0 (1 standard drink = 0.6 oz pure alcoho l) Sex Assigned at Date Recorded Female 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 L SORTER Telephone Encounter - Chapis Diaz - 02/15/2013 12:46 PM CST Will fax to ana grimm until ua /drug screen complete.--GENARO De La Fuente RN L SORTER Addendum Note - James Reese MD - 02/15/2013 12:44 PM METAL SORTER Addended by: JAMES REESE on: 02/15/2013 12:44 PM Modules accepted: Orders L SORTER Telephone Encounter - James Reese MD - 02/15/2013 12:42 PM METAL SORTER Ordered - please notify patient . Thanks James Reese MD L SORTER Addendum Note - Chapis Diaz - 02/15/2013 12:05 PM METAL SORTER Addended by: CHAPIS DIAZ on: 02/15/2013 12:05 PM Modules accepted: Orders L SORTER Telephone Encounter - Chapis Diaz - 02/15/2013 12:04 PM CST Pt coming in today for ua drug screen, if insurance calls is medically necessary for ride. Will route to dr reese to get medication filled coming at 200 Chapis Diaz RN L SORTER Telephone Encounter - James Reese MD - 02/15/2013 9:52 AM METAL SORTER Read and agree with lluvia Reese MD L SORTER Telephone Encounter - Edgar Carbone MD - 02/13/2013 10:50 AM CST Attempted to reach patient ; no answer, mailbox full If she calls in my absence: inquire as to whether she has been sober or using. If using - seek detox. If sober - OK to fill Subutex 8 mg per day until appointment 03/01/13 Advise come in for drug screen L SORTER Telephone Encounter - Chapis Diaz - 02/12/2013 4:15 PM CST i do not see that pt has checked in for lab as of this time today--just to let you know Chapis Diaz RN L SORTER Telephone Encounter - Chapis Diaz - 02/12/2013 12:31 PM CST 330 today for send outs. She uses [employer] and [employer]. She will call for lab apt after she can set up ride for today Chapis Diaz RN L SORTER Telephone Encounter - Chapis Diaz - 02/12/2013 12:26 PM CST Mail box full at this time, attempted to contact pt Chapis Diaz RN L SORTER Telephone Encounter - Edgar Carbone MD - 02/12/2013 12:21 PM CST Will refill as soon as she comes in to leave urine for drug screen - should be today L SORTER Telephone Encounter - Chapis Diaz - 02/12/2013 11:49 AM CST Pt aware dr carbone no longer with clinic and that there was a letter mailed to his patients notifying them of this date. Aware dr reese out of office until Friday and they are the only two who are able to prescribe this medication. She would like message sent to dr reese for Friday to review. Chapis Diaz RN L SORTER Telephone Encounter - Violeta Hunter - 02/12/2013 11:29 AM CST Patient calling in. Patient needs refill of Subutex Was only given a 1 week refill, but next appointet isnt until 03/01 need refill to cover until linic appointment. Patient is currently out of medication Pharmacy [facility] [address] and [facility] Best number for patient - [phone] Thank you\ Violeta Knight Safety Equipment Tester L SORTER documented in this encounter Plan of Treatment Upcoming Encounters Date Type Specialty Care Team Description 11/15/2021 Office Visit Wound Care Luis Camara DPM [address] [place] [address] (Wo rk) documented as of this encounter Visit Diagnoses Diagnosis Opiate dependence (H) - Primary Opioid type dependence, unspecified documented in this encounter Care Teams Bean Viner Relationship Specialty Start Date End Date Edgar Carbone MD PCP - General Family Practice 04/13/12 08/11/[address] [facility] 700 [place] [address] documented as of this encounter
--- OUTSIDE RECORDS SUMMARY | 2021-11-10 00:50 | XMS_ITS | Encounter Summary ---
:1980 Author Organization [place] Address Replaced by [facility] [place] [address] Care Team Providers Name Role Phone Edgar Alfredo MD Primary Care Provider Encounter Details Date Type Department Care Team Description 05/18/2012 External Order [facility] Edgar Alfredo, Results Clinic Ashly VÁSQUEZ [address] [place] [address] [place] [address] [address] [place] [phone] (Wo rk) Social History Tobacco Use Types Packs/Day Years Used Date Current Every Day Smoker Cigarettes 0.5 10 Smokeless Tobacco: Never Used Alcohol Use Standard Drinks/Week Comments No 0 (1 standard drink = 0.6 oz pure alcoho l) Sex Assigned at Date Recorded Female 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 documented in this encounter Results (ABNORMAL) ABSTRACT PAP-NO CHARGE (05/18/2012) Narrative MISYS - 05/18/2012 Pt reports [facility] [place], results abnormal, recheck one year. ??Pt Reported GIOVANNA Letter Sent Patient Reported LAB - HIM EXTERNAL RESULT Performing Organization Address City/State/ZIP Code Phon e Number MISYS documented in this encounter Visit Diagnoses Not on filedocumented in this encounter Care Teams Food Preparation Kitchen Aide Relationship Specialty Start Date End Date Edgar Alfredo MD PCP - General Family Practice 04/13/12 08/11/[address] [place], [place] [address]E [facility] 700 [place] [address] documented as of this encounter
--- OUTSIDE RECORDS SUMMARY | 2021-11-10 00:50 | XMS_ITS | Encounter Summary ---
:1980 Author Organization [place] Address [facility] [place] [address] Care Team Providers Name Role Phone Edgar Alfredo MD Primary Care Provider Reason for Visit Reason Onset Date Comments Refill Request 04/24/2012 Encounter Details Date Type Department Care Team Description 04/24/2012 Refill [facility] Nithya Alfredo MD Refill Request [place] [address] [place] [address] [address] [place] [address] [address] [phone] [place] [phone] Social History Tobacco Use Types Packs/Day Years Used Date Current Every Day Smoker Cigarettes 0.5 10 Smokeless Tobacco: Never Used Alcohol Use Standard Drinks/Week Comments No 0 (1 standard drink = 0.6 oz pure alcoho l) Sex Assigned at Date Recorded Female 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 Marycarmen Spence RN ONAL DIRECTOR Telephone Encounter - Tigist Fraga - 04/24/2012 2:21 PM CST Pt ([phone]) calling, requesting a refill for wellbutrin for today, states she is out. [facility] in [employer]. ONAL DIRECTOR documented in this encounter Plan of Treatment Upcoming Encounters Date Type Specialty Care Team Description 11/15/2021 Office Visit Wound Care Luis Camara, [place] [address] [place], [place] [address] (Wo rk) documented as of this encounter Visit Diagnoses Diagnosis Moderate major depression (H) - Primary Major depressive disorder, single episod e, moderate documented in this encounter Care Teams Dieing Out Machine Operator Relationship Specialty Start Date End Date Edgar Alfredo MD PCP - General Family Practice 04/13/12 08/11/[address] [facility] 700 [place] [phone] documented as of this encounter
--- OUTSIDE RECORDS SUMMARY | 2021-11-10 00:50 | XMS_ITS | Encounter Summary ---
:1980 Author Organization [place] Address [facility] [place] [address] Care Team Providers Name Role Phone None, Bfp Primary Care Provider Unavailable Reason for Visit Reason Onset Date Comments RECHECK please ask about rec ent PAP date Erroneous encounter-disregard 02/27/2012 Encounter Details Date Type Department Care Team Description 02/27/2012 Office Visit [facility] Edgar Alfredo ERRONEOUS Clinic Ashly Gauthier MD ENCOUNTER--DISREGARD [address] [place] [address] [place] [address] (Primary Dx) [address] [place] [phone] Social History Tobacco Use Types Packs/Day Years Used Date Current Every Day Smoker Cigarettes 0.5 10 Smokeless Tobacco: Never Used Alcohol Use Standard Drinks/Week Comments No 0 (1 standard drink = 0.6 oz pure alcoho l) Sex Assigned at Date Recorded Female 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 Please disregard. This encounter was opened in error. Please disregard. EAR MEDICINE SPECIALIST documented in this encounter Plan of Treatment Upcoming Encounters Date Type Specialty Care Team Description 11/15/2021 Office Visit Wound Care Luis Camara, [place] [address] [place] [address] (Wo rk) documented as of this encounter Visit Diagnoses Diagnosis ERRONEOUS ENCOUNTER--DISREGARD - Primary documented in this encounter Care Teams Retail Coverage Merchandiser Lead Relationship Specialty Start Date End Date None, Bfp PCP - General 03/02/99 04/12/12 documented as of this encounter
--- OUTSIDE RECORDS SUMMARY | 2021-11-10 00:50 | XMS_ITS | Encounter Summary ---
:1980 Author Organization [place] Address [facility] [place] [address] Care Team Providers Name Role Phone Edgar Alfredo MD Primary Care Provider Reason for Visit Reason Comments Recheck Medication Encounter Details Date Type Department Care Team Description 07/23/2012 Office Visit [facility] Edgar Alfredo Opiate de pendence (H) Clinic Ashly Gauthier MD (Primary Dx) [address] [facility] [address] [facility] [address] [place] [phone] Social History Tobacco Use Types Packs/Day Years Used Date Current Every Day Smoker Cigarettes 0.5 10 Smokeless Tobacco: Never Used Alcohol Use Standard Drinks/Week Comments No 0 (1 standard drink = 0.6 oz pure alcoho l) Sex Assigned at Date Recorded Female 01/14/2020 10:57 AM RADIO MESSAGE ROUTER documented as of this encounter Last Filed Vital Signs Vital Sign Reading Time Taken Comments Blood Pressure 108/71 07/23/2012 3:48 PM CDT Pulse 72 07/23/2012 3:48 PM CDT Temperature 36.1 ??C (97 ??F) 07/23/2012 3:48 PM CDT Respiratory Rate - - Oxygen Saturation 100% 07/23/2012 3:48 PM CDT Inhaled Oxygen Concentration - - Weight 73 kg (161 lb) 07/23/2012 3:48 PM CDT Height 166.4 cm (5' 5.5) 07/23/2012 3:48 PM CDT Body Mass Index 26.38 07/23/2012 3:48 PM CDT documented in this encounter Progress Notes Edgar Alfredo MD - 07/26/2012 12:24 PM CDT Stephani Parker is here for a periodic Suboxone follow-up. Since last visit patient has been: doing well. Just had ; wants to resume Suboxone All is OK There has been: moderate craving. Cues to use and relapse triggers have been: moderate. Recovery program has been: weak. Contact with sponsor has been: no sponsor. Family and support system has been: helpful. Patient has been going to recovery meetings:sporadically. Sobriety: no use since last visit Drug Screen: patient willing but screen unnecessary Suboxone Dose: too little Side Effects: none Plan for Suboxone for next period: increase dose to 8 mg daily Questions answered: yes Issues discussed: Discussed with patient many issues of addiction, relapse, and establishing a solidrecovery program. Next visit: 1 month; discussed Subutex in breast feeding 20 minutes were spent with patient with more than 50% of time spent in counseling and coordination of care documented in this encounter Nursing Notes 07/23/2012 4:15 PM CDT >> FERN MARINELLI FriJul 23, 2012 4:50 PM Script for subutex was faxed to the [facility]. >> BRYNN HAMMOND FriJul 23, 2012 3:50 PM Patient presents with: Recheck Medication Initial BP 108/71 Pulse 72 Temp 97 ??F (36.1 ??C) Ht 5' 5.5 (1.664 m) Wt 161 lb (73.029 kg) BMI 26.38 kg/m2 SpO2 100% ? Yes Estimated Body mass index is 26.38 kg/(m^2) as calculated from the following: Height as of this encounter: 5' 5.5(1.664 m). Weight as of this encounter: 161 lb(73.029 kg). BP completed using cuff size: regular Brynn Hammond RESIDENT CARE SUPERVISOR documented in this encounter Miscellaneous Notes Addendum Note - Brynn Hammond - 08/11/2012 4:52 PM CDT Addended by: BRYNN HAMMOND on: 08/11/2012 04:52 PM Modules accepted: SmartSet documented in this encounter Plan of Treatment Upcoming Encounters Date Type Specialty Care Team Description 11/15/2021 Office Visit Wound Care Luis Camara, [place] [address] [place] [address] (Wo rk) documented as of this encounter Visit Diagnoses Diagnosis Opiate dependence (H) - Primary Opioid type dependence, unspecified documented in this encounter Care Teams Pharmacy Coordinator Relationship Specialty Start Date End Date Edgar Alfredo MD PCP - General Family Practice 04/13/12 08/11/[address] [facility] 700 [place] [address] documented as of this encounter
--- OUTSIDE RECORDS SUMMARY | 2021-11-10 00:50 | XMS_ITS | Encounter Summary ---
:1980 Author Organization [place] Address [address] [facility] [place] [address] Care Team Providers Name Role Phone Edgar Alfredo MD Primary Care Provider Reason for Visit Reason Onset Date Comments Refill Request 04/30/2012 Encounter Details Date Type Department Care Team Description 04/30/2012 Refill [facility] Nithya Alfredo MD Refill Request [place] 606 [facility] [address] [place] [address] [phone] [place] [address] [phone] Social History Tobacco Use Types Packs/Day Years Used Date Current Every Day Smoker Cigarettes 0.5 10 Smokeless Tobacco: Never Used Alcohol Use Standard Drinks/Week Comments No 0 (1 standard drink = 0.6 oz pure alcoho l) Sex Assigned at Date Recorded Female 01/14/2020 10:57 AM 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 Telephone Encounter - Sintia Colon - 04/30/2012 2:17 PM CDT Patient notified. Sintia Colon RN Telephone Encounter - Edgar Alfredo MD - 04/30/2012 2:15 PM CDT Ordered Telephone Encounter - Sintia Colon - 04/30/2012 1:25 PM CDT Please see message below. I have cued up the current suboxone RX. Please advise. Sintia Colon RN Telephone Encounter - Abel Sal - 04/30/2012 1:00 PM CDT Pt will be out of Subutex 2mg, tomorrow. She made a med check appt for 05/15. That was the soonest she could get in.She is asking Dr. Alfredo to give her enough medication to last until her appt.. Pt said the 2 mg isn't strong enough for her and would he consider raising the mg dosage.Best time to call isafter 4:30. If before, message may be left. Please let her know status at:[phone]. documented in this encounter Plan of Treatment Upcoming Encounters Date Type Specialty Care Team Description 11/15/2021 Office Visit Wound Care Luis Camara, [place] [address] [place], [place] [address] (Wo rk) documented as of this encounter Visit Diagnoses Diagnosis Opiate dependence (H) - Primary Opioid type dependence, unspecified documented in this encounter Care Teams Program Manager Environmental Planning Relationship Specialty Start Date End Date Edgar Alfredo MD PCP - General Family Practice 04/13/12 08/11/[address] [place] [phone] documented as of this encounter
--- OUTSIDE RECORDS SUMMARY | 2021-11-10 00:50 | XMS_ITS | Encounter Summary ---
:1980 Author Organization [place] Address [facility] [place] [address] Care Team Providers Name Role Phone Edgar Alfredo MD Primary Care Provider Reason for Visit Reason Onset Date Comments Nurse Advice Line 11/28/2012 subutex Encounter Details Date Type Department Care Team Description 11/28/[address] 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 I checked EPIC and saw that 24 had been prescribed on 11/16 whichshould last her until 12/09. Caller said she has none left. I had page op page educational psychology teacher doctor to call pt at [phone]. [place]ia Brewer RN [facility] [phone] Telephone Encounter - Anthony Roger RN - 11/28/2012 11:25 AM CDT Medication request: buprenorphine (SUBUTEX) [employer] (store [id number]) pharmacy calling and they state that Stephani has contacted her clinic as she needs to get her buprenorphine refilled as she he heading out of town. Per pharmacist, We are unable to refill until 12/05/12. She states she has contacted her clinic about gettng this approved of, butthere is no record of this in her Epic chart. Pharmacist states they need the physician's approval to refill earlier then 12/05/12. Route to PCP clinic Anthony [facility] documented in this encounter Plan of Treatment Upcoming Encounters Date Type Specialty Care Team Description 11/15/2021 Office Visit Wound Care Luis Camara, [place] [address] [place], [place] [phone] (Wo rk) documented as of this encounter Visit Diagnoses Not on filedocumented in this encounter Care Teams Javascript Ui Developer Relationship Specialty Start Date End Date Edgar Alfredo MD PCP - General Family Practice 04/13/12 08/11/[address] [facility] 700 [place] [phone] documented as of this encounter
--- OUTSIDE RECORDS SUMMARY | 2021-11-10 00:50 | XMS_ITS | Encounter Summary ---
:1980 Author Organization [place] Address [address] [place] [address]. [place] [address] Care Team Providers Name Role Phone Edgar Alfredo MD Primary Care Provider Reason for Visit Reason Onset Date Comments RECHECK PAP Date Erroneous encounter-disregard 05/16/2012 Encounter Details Date Type Department Care Team Description 05/15/2012 Office Visit [facility] Edgar Alfredo ERRONEOUS Clinic Ashly Gauthier MD ENCOUNTER--DISREGARD [address] [facility] [address] [facility] (Primary Dx) [address] [place] [phone] Social History Tobacco Use Types Packs/Day Years Used Date Current Every Day Smoker Cigarettes 0.5 10 Smokeless Tobacco: Never Used Alcohol Use Standard Drinks/Week Comments No 0 (1 standard drink = 0.6 oz pure alcoho l) Sex Assigned at Date Recorded Female 01/14/2020 10:57 AM HEALTH CENTER MANAGER documented as of this encounter Progress Notes Edgar Alfredo MD - 05/16/2012 8:37 AM CDT This encounter was opened in error. Please disregard. documented in this encounter Plan of Treatment Upcoming Encounters Date Type Specialty Care Team Description 11/15/2021 Office Visit Wound Care Luis Camara, [place] [address] [place] [address] (Wo rk) documented as of this encounter Visit Diagnoses Diagnosis ERRONEOUS ENCOUNTER--DISREGARD - Primary documented in this encounter Care Teams Supervisor Scenic Arts Relationship Specialty Start Date End Date Edgar Alfredo MD PCP - General Family Practice 04/13/12 08/11/[address] [place] [address] 700 [place] [address] documented as of this encounter
--- OUTSIDE RECORDS SUMMARY | 2021-11-10 00:50 | XMS_ITS | Encounter Summary ---
:1980 Author Organization [place] Address [facility] [place] [address] Care Team Providers Name Role Phone Edgar Alfredo MD Primary Care Provider Encounter Details Date Type Department Care Team Description 11/28/2012 Telephone [facility] Rubi Larsen [place] MD [address] [place] [address] [place] [address] [address] [place] [address] [place] [phone] Social History Tobacco Use Types Packs/Day Years Used Date Current Every Day Smoker Cigarettes 0.1 10 Smokeless Tobacco: Never Used Comments: 5 cigarettes a day Alcohol Use Standard Drinks/Week Comments No 0 (1 standard drink = 0.6 oz pure alcoho l) Sex Assigned at Date Recorded Female 01/14/2020 10:57 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 documented as of this encounter Miscellaneous Notes Telephone Encounter - Jax Larsen MD - 11/28/2012 3:31 PM CDT patient calls I left my ( subutex) at a relative 4 hours away, Pharmacy saws its too early to refill it but I'm out I called [facility], They will allow her to have 2 days pillls and she will call Dr Alfredo Fri documented in this encounter Plan of Treatment Upcoming Encounters Date Type Specialty Care Team Description 11/15/2021 Office Visit Wound Care Luis Camara, [place] [address] [place], [place] [address] (Wo rk) documented as of this encounter Visit Diagnoses Not on filedocumented in this encounter Care Teams Ribbon Hanking Machine Operator Relationship Specialty Start Date End Date Edgar Alfredo MD PCP - General Family Practice 04/13/12 08/11/[address] [phone] documented as of this encounter
--- OUTSIDE RECORDS SUMMARY | 2021-11-10 00:50 | XMS_ITS | Encounter Summary ---
:1980 Author Organization [place] Address [facility]0 [facility] [address] Care Team Providers Name Role Phone Edgar Alfredo MD Primary Care Provider Reason for Visit Reason Comments Recheck Medication PHQ9 Encounter Details Date Type Department Care Team Description 12/10/2012 Office Visit [facility] Edgar Alfredo Opiate de pendence (H) (Primary Dx); Clinic Ashly Gauthier MD Moderate major depression (H) [address] [facility] [address] [place] [phone] Social History Tobacco Use Types Packs/Day Years Used Date Current Every Day Smoker Cigarettes 0.1 10 Smokeless Tobacco: Never Used Comments: 5 cigarettes a day Alcohol Use Standard Drinks/Week Comments No 0 (1 standard drink = 0.6 oz pure alcoho l) Sex Assigned at Date Recorded Female 01/14/2020 10:57 AM CLOSING MANAGER documented as of this encounter Last Filed Vital Signs Vital Sign Reading Time Taken Comments Blood Pressure 113/64 12/10/2012 5:17 PM CDT Pulse 74 12/10/2012 5:17 PM CDT Temperature 36.4 ??C (97.5 ??F) 12/10/2012 5:17 PM CDT Respiratory Rate - - Oxygen Saturation 99% 12/10/2012 5:17 PM CDT Inhaled Oxygen Concentration - - Weight 70.3 kg (155 lb) 12/10/2012 5:17 PM CDT Height 166.4 cm (5' 5.5) 12/10/2012 5:17 PM CDT Body Mass Index 25.4 12/10/2012 5:17 PM CDT documented in this encounter Progress Notes Edgar Alfredo MD - 12/12/2012 1:36 PM CDT Stephani Parker is here for a periodic Suboxone follow-up. Since last visit patient has been: struggling. Recent move to troubled neighborhood. Stress of caring for children There has been: no craving. Cues to use and relapse triggers have been: moderate. Recovery program has been: sporadic. Contact with sponsor has been: no sponsor. Family and support system has been: helpful. Patient has been going to recovery meetings:sporadically. Sobriety: no use since last visit Drug Screen: pt gives excuses; drug screen asked for but not left; unable to reach patient; discuss next visit Suboxone Dose: adequate Side Effects: none Plan for Suboxone for next period: no change Questions answered: yes Issues discussed: depression - medications helping Next visit: 1 month 20 minutes were spent with patient with more than 50% of time spent in counseling and coordination of care DISCUSS DRUG SCREEN NEXT VISIT documented in this encounter Nursing Notes 12/10/2012 4:30 PM CDT >> CAROLINE COLON [facility] Dec 10, 2012 5:34 PM RX for suboxone faxed to [facility] Caroline Colon RN >> BRYNN PORTER [facility] Dec 10, 2012 5:20 PM Patient presents with: Recheck Medication - PHQ9 Initial BP 113/64 Pulse 74 Temp 97.5 ??F (36.4 ??C) Ht 5' 5.5 (1.664 m) Wt 155 lb (70.308 kg) BMI 25.40 kg/m2 SpO2 99% ? Yes Estimated Body mass index is 25.40 kg/(m^2) as calculated from the following: Height as of this encounter: 5' 5.5(1.664 m). Weight as of this encounter: 155 lb(70.308 kg). BP completed using cuff size: regular Brynn Manish POLE PEELING 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 documented in this encounter Plan of Treatment Upcoming Encounters Date Type Specialty Care Team Description 11/15/2021 Office Visit Wound Care Luis Camara DPM [address] [place] [address] (Wo rk) documented as of this encounter Visit Diagnoses Diagnosis Opiate dependence (H) - Primary Opioid type dependence, unspecified Moderate major depression (H) Major depressive disorder, single episod e, moderate documented in this encounter Care Teams Hearing Aid Repairer Relationship Specialty Start Date End Date Edgar Alfredo MD PCP - General Family Practice 04/13/12 08/11/[address] [place] [phone] documented as of this encounter
--- OUTSIDE RECORDS SUMMARY | 2021-11-10 00:50 | XMS_ITS | Encounter Summary ---
:1980 Author Organization [place] Address [address] [facility] [place] [address] Care Team Providers Name Role Phone Edgar Alfredo MD Primary Care Provider Reason for Visit Reason Onset Date Comments Refill Request 06/09/2012 Encounter Details Date Type Department Care Team Description 06/09/2012 Refill [facility] Nithya Alfredo MD Refill Request [facility] [address] [place] [place], [place] [address] [address] [place] [address] [phone] [place] [address] 4-[address] [phone] Social History Tobacco Use Types Packs/Day Years Used Date Current Every Day Smoker Cigarettes 0.5 10 Smokeless Tobacco: Never Used Alcohol Use Standard Drinks/Week Comments No 0 (1 standard drink = 0.6 oz pure alcoho l) Sex Assigned at Date Recorded Female 01/14/2020 10:57 AM TOBACCO CONDITIONER documented as of this encounter Miscellaneous Notes Telephone Encounter - Deja Shi RN - 06/09/2012 12:18 PM CDT Patient reports that her mother had cleared out the cabinet and threw out all meds and rx, not sureif she would have a refill somewhere else. Called [facility], which should have refill for Wellbutrin, however, it seems patient had it transferred elsewhere as that rx has been closed. Huddled with Dr. Alfredo, who verbally okayed 1 month supply, sent to [facility]. Deja, Srinath Nurse documented in this encounter Plan of Treatment Upcoming Encounters Date Type Specialty Care Team Description 11/15/2021 Office Visit Wound Care Luis Camara, [place] [address] [place] [address] (Wo rk) documented as of this encounter Visit Diagnoses Diagnosis Moderate major depression (H) - Primary Major depressive disorder, single episod e, moderate documented in this encounter Care Teams Warp Coiler Relationship Specialty Start Date End Date Edgar Alfredo MD PCP - General Family Practice 04/13/12 08/11/[address] [facility] 700 [place] [address] documented as of this encounter
--- OUTSIDE RECORDS SUMMARY | 2021-11-10 00:50 | XMS_ITS | Encounter Summary ---
:1980 Author Organization [place] Address [facility] [place] [address] Care Team Providers Name Role Phone Edgar Alfredo MD Primary Care Provider Reason for Visit Reason Onset Date Comments Refill Request 11/30/2012 Encounter Details Date Type Department Care Team Description 11/30/2012 Refill [facility] Nithya Alfredo MD Refill Request [place] [address] [place] [address] [address] [place] [address] [phone] [place] [address] 4-[address] [phone] Social History Tobacco Use Types Packs/Day Years Used Date Current Every Day Smoker Cigarettes 0.1 10 Smokeless Tobacco: Never Used Comments: 5 cigarettes a day Alcohol Use Standard Drinks/Week Comments No 0 (1 standard drink = 0.6 oz pure alcoho l) Sex Assigned at Date Recorded Female 01/14/2020 10:57 AM LOG SCALER documented as of this encounter Miscellaneous Notes Telephone Encounter - Chapis Diaz - 12/01/2012 9:10 AM CDT Pt having problems with pharmacist--only filled part of it.. Pt was able to get her medication, everything worked out fine-- she just needed you to speak with the pharmacy she stated she didn't need refills at this time. She will be seeing you on December 10 Chapis Diaz RN Telephone Encounter - Edgar Alfredo MD - 11/30/2012 3:33 PM CDT Per Camacho [phone] patient has 21 tabs left on previous prescription transferred from [facility] 11/16/12 Unable to reach patient Telephone Encounter - Chapis Diaz - 11/30/2012 3:07 PM CDT 11/16/12 last filled in epic will route to provider for review Chapis Diaz RN Telephone Encounter - Abel Sal - 11/30/2012 3:00 PM CDT Pt needs physician to call pharmacy to verify the refill of buprenorphine 8 mg. Pt said the prescription has already been called in. Pt is .That is why she is not taking suboxone. Patient is completely out of medication and needs today. Camacho laurel Servin: [phone] documented in this encounter Plan of Treatment Upcoming Encounters Date Type Specialty Care Team Description 11/15/2021 Office Visit Wound Care Luis Camara DPM [address] [place] [address] (Wo rk) documented as of this encounter Visit Diagnoses Not on filedocumented in this encounter Care Teams Cinder Block Mason Relationship Specialty Start Date End Date Edgar Alfredo MD PCP - General Family Practice 04/13/12 08/11/[address] [place] [address] [place] [address] documented as of this encounter
--- OUTSIDE RECORDS SUMMARY | 2021-11-10 00:50 | XMS_ITS | Encounter Summary ---
:1980 Author Organization [place] Address [address] [facility] [place] [address] Care Team Providers Name Role Phone None, Bfp Primary Care Provider Unavailable Reason for Visit Reason Comments RECHECK PAP date Erroneous encounter-disregard Encounter Details Date Type Department Care Team Description 03/31/2012 Office Visit [facility] Edgar Alfredo ERRONEOUS Clinic Ashly Gauthier MD ENCOUNTER--DISREGARD [address] [place] [address] [place] [address] [place] (Primary Dx) [address] [place] [phone] Social History Tobacco Use Types Packs/Day Years Used Date Current Every Day Smoker Cigarettes 0.5 10 Smokeless Tobacco: Never Used Alcohol Use Standard Drinks/Week Comments No 0 (1 standard drink = 0.6 oz pure alcoho l) Sex Assigned at Date Recorded Female 01/14/2020 10:57 AM HEAD START COORDINATOR documented as of this encounter Progress Notes Madonna Cody - 04/03/2012 1:26 PM CST Appt cancelled START COORDINATOR documented in this encounter Plan of Treatment Upcoming Encounters Date Type Specialty Care Team Description 11/15/2021 Office Visit Wound Care Luis Camara, [place] [address] [place] [address] (Wo rk) documented as of this encounter Visit Diagnoses Diagnosis ERRONEOUS ENCOUNTER--DISREGARD - Primary documented in this encounter Care Teams Head Kiln Operator Relationship Specialty Start Date End Date None, Bfp PCP - General 03/02/99 04/12/12 documented as of this encounter
--- OUTSIDE RECORDS SUMMARY | 2021-11-10 00:50 | XMS_ITS | Encounter Summary ---
:1980 Author Organization [place] Address [address] [place] [address] Care Team Providers Name Role Phone Edgar Alfredo MD Primary Care Provider System, Provider Not In Primary Care Provider Unavailable [facility], [facility] Primary Care Provide r Luis Fernando Magana Primary Care Provider [facility], [facility] Primary Care Provide r Tatyana Haas CHILD DAYCARE WORKER MOLDING 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 HELPER Unavailable [phone] Stephani Pina CHILD DAYCARE WORKER MOLDING 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 HELPER Unavailable [phone] Tatyana Haas CHILD DAYCARE WORKER MOLDING 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 HELPER Unavailable [phone] Stephani Pina CHILD DAYCARE WORKER MOLDING 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 HELPER Unavailable [phone] Juanis Levi Primary Care Provider Elsa Yeh RN Unavailable Unavailable Rogelio Treadwell MD Unavailable [phone] Luis CamaraM Unavailable [phone] Camryn Christina MD Unavailable Sintia Lange PA-C Unavailable Reason for Visit Reason Onset Date Comments Other 01/08/2013 Encounter Details Date Type Department Care Team Description 01/08/2013 Telephone [facility] Nithya Alfredo MD [place] [address] [place] [address] [place] [address] 4-1455 [phone] Social History Tobacco Use Types Packs/Day Years Used Date Current Every Day Smoker Cigarettes 0.1 10 Smokeless Tobacco: Never Used Comments: 5 cigarettes a day Alcohol Use Standard Drinks/Week Comments No 0 (1 standard drink = 0.6 oz pure alcoho l) Sex Assigned at Date Recorded Female 01/14/2020 10:57 AM CONCRETE BUSTER OPERATOR documented as of this encounter Miscellaneous Notes Telephone Encounter - Chapis Diaz - 02/15/2013 12:01 PM CST RETE BUSTER OPERATOR Telephone Encounter - Sintia Colon - 01/08/2013 2:23 PM CST I spoke with pt and informed her that she should bring in a fresh urine sample today (per the note on her OV on 12/12/2012, Dr. Alfredo wanted her to have a drug screen done at next visit). She said that she takes medical transportation so she might not be able to get in today. I told her that if they need to call us they can for the ok. Sintia Colon RN RETE BUSTER OPERATOR Telephone Encounter - Carmencita Blair - 01/08/2013 2:16 PM CST Pt accidentally took urine sample home yesterday that Dr. Alfredo was requesting and took medical ride so was unable to bring urine sample back, pt wants to know if she needs to come back right away for urine sample again Pt can be reached at [phone] RETE BUSTER OPERATOR documented in this encounter Plan of Treatment Upcoming Encounters Date Type Specialty Care Team Description 11/15/2021 Office Visit Wound Care [place] Luis Lex, DPM [address] [place] [address] (Wo rk) documented as of this encounter Visit Diagnoses Diagnosis Opiate dependence (H) - Primary Opioid type dependence, unspecified documented in this encounter Additional Health Concerns Infection Onset Date Last Indicated Resolved Time MRSAComment: Added from external infection. 11/07/201406/18 documented as of this encounter Care Teams Engineer Automated Equipment Relationship Specialty Start Date End Date Edgar Alfredo MD PCP - General Family Practice 04/13/12 08/11/[address] [place] [address] 700 [place] [phone] System, Provider Not PCP - General Clinic 08/12/14 7 In Clinic, [facility] PCP - General 07/14/[address] [address] Luis Fernando Magana PCP - General Family Practice 12/07/16 01/19/[address] [address] Clinic, [facility] PCP - General 01/20/[address] [address] Juanis Levi PCP - General Addiction Medicine 06/29/21 [address]50 [place] [phone] Tatyana Haas APRN Assigned PCP 08/02/1801/28 [facility] [address] [facility] [address] [place], [place] [phone] Stephani Pina, Assigned PCP 01/30/20 12/30/20 CHILD DAYCARE WORKER MOLDING 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 HELPER [address] [place], [place] [address] Tatyana Haas, CHILD DAYCARE WORKER Assigned PCP 12/31/20 2 MOLDING 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 HELPER [facility] [address] [facility] [address] [place], [place] [address] Stephani Pina, Assigned PCP 02/25/21 CHILD DAYCARE WORKER MOLDING 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 HELPER [address] [place] [place], [place] [phone] Elsa Yeh, Registered Nurse Infectious Diseases 07/25/21 Rogelio Wilson Assigned Musculoskeletal 08/04/21 MD August Provider [address] [place], [place] [address] Luis Camara MD Podiatry 08/16/21 [place] Burnett [address] [place], [place] [address] Camryn Christina, Assigned Surgical 09/01/21 09/07/21 Provider [address] [facility] [address] [place], [place] [address] Sitnia Lange PA-C Assigned Surgical 09/08/[address] Provider [place]LO[place], [place] [address] documented as of this encounter
--- OUTSIDE RECORDS SUMMARY | 2021-11-10 00:50 | XMS_ITS | Encounter Summary ---
:1980 Author Organization [place] Address [address] [facility] [place] [address] Care Team Providers Name Role Phone Edgar Alfredo MD Primary Care Provider Encounter Details Date Type Department Care Team Description 07/20/2012 Telephone [facility] Nithya Alfredo MD [place] [address] [place] [address] [place] [address] [phone] [place] [address] 4-[address] [phone] Social History Tobacco Use Types Packs/Day Years Used Date Current Every Day Smoker Cigarettes 0.5 10 Smokeless Tobacco: Never Used Alcohol Use Standard Drinks/Week Comments No 0 (1 standard drink = 0.6 oz pure alcoho l) Sex Assigned at Date Recorded Female 01/14/2020 10:57 AM SUGAR CANE GROWER documented as of this encounter Miscellaneous Notes Telephone Encounter - Sintia Colon - 07/20/2012 1:27 PM CDT Aaliyah, pharmacist from [facility], called to figure out Dr. Alfredo's game plan regarding suboxone. Patient is having now. Call transferred to Dr. Alfredo. Sintia Colon RN documented in this encounter Plan of Treatment Upcoming Encounters Date Type Specialty Care Team Description 11/15/2021 Office Visit Wound Care Luis Camara, [place] [address] [place], [place] [address] (Wo rk) documented as of this encounter Visit Diagnoses Not on filedocumented in this encounter Care Teams Bindery Technician Relationship Specialty Start Date End Date Edgar Alfredo MD PCP - General Family Practice 04/13/12 08/11/[address] [place] [address] 700 [place] [address] documented as of this encounter
--- OUTSIDE RECORDS SUMMARY | 2021-11-10 00:50 | XMS_ITS | Encounter Summary ---
:1980 Author Organization [place] Address [facility]0 [facility] [place] [address] Care Team Providers Name Role Phone Edgar Alfredo MD Primary Care Provider Reason for Visit Reason Comments Recheck Medication Encounter Details Date Type Department Care Team Description 06/09/2012 Office Visit [facility] Edgar Alfredo Opiate de pendence (H) Clinic Ashly Gauthier MD (Primary Dx) [address] [facility] [address] [facility] [address] [place] [address] Social History Tobacco Use Types Packs/Day Years Used Date Current Every Day Smoker Cigarettes 0.5 10 Smokeless Tobacco: Never Used Alcohol Use Standard Drinks/Week Comments No 0 (1 standard drink = 0.6 oz pure alcoho l) Sex Assigned at Date Recorded Female 01/14/2020 10:57 AM HUMAN RESOURCE CONSULTANT documented as of this encounter Last Filed Vital Signs Vital Sign Reading Time Taken Comments Blood Pressure 99/59 06/09/2012 11:26 AM CDT Pulse 92 06/09/2012 11:26 AM CDT Temperature 36.9 ??C (98.5 ??F) 06/09/2012 11:26 AM CDT Respiratory Rate - - Oxygen Saturation 99% 06/09/2012 11:26 AM CDT Inhaled Oxygen Concentration - - Weight 72.6 kg (160 lb) 06/09/2012 11:26 AM CDT Height - - Body Mass Index 26.22 04/10/2012 4:20 PM HUMAN RESOURCE CONSULTANT documented in this encounter Progress Notes Edgar Alfredo MD - 06/09/2012 1:25 PM CDT Stephani Parker is here for [...] patient willing but screen unnecessary Suboxone Dose: adequate Side Effects: none Plan for Suboxone for next period: decrease dose to 3 mg daily Questions answered: yes about Subutex and breast feeding Issues discussed: need to wean dose over next month Next visit: 3 weeks 20 minutes were spent with patient with more than 50% of time spent in counseling and coordination of care Discussed Subutex and labor, delivery, documented in this encounter Nursing Notes 06/09/2012 11:15 AM CDT >> FERN YVES FriJun 09, 2012 12:04 PM Script for subutex was faxed to the [facility]. >> ROSALINE VAZQUEZ FriJun 09, 2012 11:29 AM Please abstract the following data from this visit with this patient into the appropriate field in Epic: Pap smear done on this date: 05/30 (approximately), by this group: [facility], results were Abnormal, will recheck in 1 year. Patient presents with: Recheck Medication RECHECK - PAP date Initial BP 99/59 Pulse 92 Temp(Src) 98.5 ??F (36.9 ??C) (Oral) Wt 160 lb (72.576 kg) SpO2 99% Estimated Body mass index is 26.22 kg/(m^2) as calculated from the following: Height as of 04/10/12: 5' 5.5(1.664 m). Weight as of this encounter: 160 lb(72.576 kg).. BP completed using cuff size: regular Rosaline Vazquez PAINTER TUMBLING BARREL documented in this encounter Plan of Treatment Upcoming Encounters Date Type Specialty Care Team Description 11/15/2021 Office Visit Wound Care Luis Camara DPM [address] [place] [address] (Wo rk) documented as of this encounter Visit Diagnoses Diagnosis Opiate dependence (H) - Primary Opioid type dependence, unspecified documented in this encounter Care Teams Child Nurse Relationship Specialty Start Date End Date Edgar Alfredo MD PCP - General Family Practice 04/13/12 08/11/14 606 [address] 700 [place] [address] documented as of this encounter
--- OUTSIDE RECORDS SUMMARY | 2021-11-10 00:50 | XMS_ITS | Encounter Summary ---
:1980 Author Organization [place] Address [address] [facility] [place] [address] Care Team Providers Name Role Phone Edgar Alfredo MD Primary Care Provider Reason for Visit Reason Onset Date Comments Refill Request 05/19/2012 Encounter Details Date Type Department Care Team Description 05/19/2012 Refill [facility] Nithya Alfredo MD Refill Request [place] 606 [address] [address] [place] [address] [address] [address] [place] [address] 4-[address] [phone] Social History Tobacco Use Types Packs/Day Years Used Date Current Every Day Smoker Cigarettes 0.5 10 Smokeless Tobacco: Never Used Alcohol Use Standard Drinks/Week Comments No 0 (1 standard drink = 0.6 oz pure alcoho l) Sex Assigned at Date Recorded Female 01/14/2020 10:57 AM RESOLUTION EXPERT documented as of this encounter Miscellaneous Notes Telephone Encounter - Madonna Cody - 05/19/2012 2:40 PM CDT The script was faxed and Stephani was notified and also given the information about the appointment. Telephone Encounter - Edgar Alfredo MD - 05/19/2012 2:22 PM CDT MUST NOT MISS THE NEXT APPOINTMENT -please advise Telephone Encounter - FlakitoTigist - 05/19/2012 2:05 PM CDT Pt ([phone]) calling, scheduled appt for med check for 06-09-12, states she has enough subutex until May 26 or , would like a rx for 05-26-12 that would cover until appt 06-09. Walchelseaeens Hickman as listed in Status[employer]. documented in this encounter Plan of Treatment Upcoming Encounters Date Type Specialty Care Team Description 11/15/2021 Office Visit Wound Care Luis Camara, [place] [address] [place] [address] (Wo rk) documented as of this encounter Visit Diagnoses Diagnosis Opiate dependence (H) - Primary Opioid type dependence, unspecified documented in this encounter Care Teams Motion And Time Study Teacher Relationship Specialty Start Date End Date Edgar Alfredo MD PCP - General Family Practice 04/13/12 08/11/[address] [facility] 700 [place] [phone] documented as of this encounter
--- OUTSIDE RECORDS SUMMARY | 2021-11-10 00:50 | XMS_ITS | Encounter Summary ---
:1980 Author Organization [place] Address [facility] [place] [address] Care Team Providers Name Role Phone Edgar Alfredo MD Primary Care Provider Reason for Visit Reason Comments RECHECK PHQ9- PCP patient due for DA P/letters Recheck Medication she would like to talk about her antidepressant. Encounter Details Date Type Department Care Team Description 09/15/2012 Office Visit [facility] Edgar Alfredo Moderate major depression (H) (Primary Dx); Clinic Ashly Gauthier MD Opiate dependence (H); [address] [place] [address] [place] [address] Anxiety [address] [place] [address] [phone] Social History Tobacco Use Types Packs/Day Years Used Date Current Every Day Smoker Cigarettes 0.5 10 Smokeless Tobacco: Never Used Alcohol Use Standard Drinks/Week Comments No 0 (1 standard drink = 0.6 oz pure alcoho l) Sex Assigned at Date Recorded Female 01/14/2020 10:57 AM STRAW HAT BRIM RAISER OPERATOR documented as of this encounter Last Filed Vital Signs Vital Sign Reading Time Taken Comments Blood Pressure 118/79 09/15/2012 11:56 AM CDT Pulse 77 09/15/2012 11:56 AM CDT Temperature 36.9 ??C (98.4 ??F) 09/15/2012 11:56 AM CDT Respiratory Rate - - Oxygen Saturation 98% 09/15/2012 11:56 AM CDT Inhaled Oxygen Concentration - - Weight 67.1 kg (147 lb 14.4 oz) 09/15/2012 11:56 AM CDT Height 166.4 cm (5' 5.5) 09/15/2012 11:56 AM CDT Body Mass Index 24.24 09/15/2012 11:56 AM CDT documented in this encounter Progress Notes Edgar Alfredo MD - 09/15/2012 10:03 PM CDT Stephani Parker is here for a periodic Suboxone follow-up. Since last visit patient has been: doing well. Does have some anxiety. There has been: no craving. Cues to [...] no change Questions answered: yes Issues discussed: adding medication for anxiety, depression Next visit: 1 month 20 minutes were spent with patient with more than 50% of time spent in counseling and coordination of care documented in this encounter Nursing Notes 09/15/2012 11:30 AM CDT >> FERN MARINELLI FriSep 15, 2012 12:55 PM Script for subutex was faxed to the [facility]. >> ADELINE MASSEY FriSep 15, 2012 12:03 PM Patient presents with: RECHECK - PHQ9- PCP patient due for DAP/letters Recheck Medication - she would like to talk about her antidepressant. Initial BP 118/79 Pulse 77 Temp 98.4 ??F (36.9 ??C) (Oral) Ht 5' 5.5 (1.664 m) Wt 147 lb 14.4 oz (67.087 kg) BMI 24.24 kg/m2 SpO2 98% ? Yes Estimated Body mass index is 24.24 kg/(m^2) as calculated from the following: Height as of this encounter: 5' 5.5(1.664 m). Weight as of this encounter: 147 lb 14.4 oz(67.087 kg). BP completed using cuff size: regular Adeline Massey documented in this encounter Plan of Treatment Upcoming Encounters Date Type Specialty Care Team Description 11/15/2021 Office Visit Wound Care Luis Camara, [place] [address] [place], [place] [phone] (Wo rk) documented as of this encounter Visit Diagnoses Diagnosis Moderate major depression (H) - Primary Major depressive disorder, single episod e, moderate Opiate dependence (H) Opioid type dependence, unspecified Anxiety Anxiety state, unspecified documented in this encounter Care Teams Psychiatric Cns Relationship Specialty Start Date End Date Edgar Alfredo MD PCP - General Family Practice 04/13/12 08/11/[address] [facility] [address] [place] [phone] documented as of this encounter
--- OUTSIDE RECORDS SUMMARY | 2021-11-10 00:50 | XMS_ITS | Encounter Summary ---
:1980 Author Organization [place] Address [facility] [place] [address] Care Team Providers Name Role Phone Edgar Alfredo MD Primary Care Provider Reason for Visit Reason Comments Recheck Medication Encounter Details Date Type Department Care Team Description 01/07/2013 Office Visit [facility] Edgar Alfredo Opiate de pendence (H) (Primary Dx); Clinic Ashly Gauthier MD Moderate major depression (H) [address] [facility] [address] [facility] [address] [place] [address] [phone] Social History Tobacco Use Types Packs/Day Years Used Date Current Every Day Smoker Cigarettes 0.1 10 Smokeless Tobacco: Never Used Comments: 5 cigarettes a day Alcohol Use Standard Drinks/Week Comments No 0 (1 standard drink = 0.6 oz pure alcoho l) Sex Assigned at Date Recorded Female 01/14/2020 10:57 AM MANAGER HEAVY DUTY documented as of this encounter Last Filed Vital Signs Vital Sign Reading Time Taken Comments Blood Pressure 114/69 01/07/2013 11:29 AM MANAGER HEAVY DUTY Pulse 78 01/07/2013 11:29 AM MANAGER HEAVY DUTY Temperature 36.4 ??C (97.6 ??F) 01/07/2013 11:29 AM MANAGER HEAVY DUTY Respiratory Rate - - Oxygen Saturation 98% 01/07/2013 11:29 AM MANAGER HEAVY DUTY Inhaled Oxygen Concentration - - Weight 69.4 kg (153 lb) 01/07/2013 11:29 AM MANAGER HEAVY DUTY Height 166.4 cm (5' 5.5) 01/07/2013 11:29 AM MANAGER HEAVY DUTY Body Mass Index 25.07 01/07/2013 11:29 AM MANAGER HEAVY DUTY documented in this encounter Progress Notes Edgar Alfredo MD - 01/09/2013 7:50 AM CST Stephani Parker is here for a periodic Suboxone follow-up. Since last visit patient has been: stable. There has been: no craving. Cues to use and relapse triggers have been: mild. Recovery program has been: active. Uses her adventism Contact with sponsor has been: no sponsor. Family and support system has been: helpful. Patient has been going to recovery meetings:not at all. Sobriety: no use since last visit Drug Screen: pt gives excuses; left without leaving urine adequate Suboxone Dose: Side Effects: none Plan for Suboxone for next period: no change Questions answered: yes Issues discussed: need for drug screen Next visit: 1 month 20 minutes were spent with patient with more than 50% of time spent in counseling and coordination of care; Discussed with patient many issues of addiction, relapse, and establishing a solid recovery program. GER HEAVY DUTY documented in this encounter Nursing Notes 01/07/2013 10:15 AM CST >> BRYNN HAMMOND Zoe Jan 07, 2013 11:34 AM Patient presents with: Recheck Medication Initial BP 114/69 Pulse 78 Temp 97.6 ??F (36.4 ??C) Ht 5' 5.5 (1.664 m) Wt 153 lb (69.4 kg) BMI 25.07 kg/m2 SpO2 98% ? Yes Estimated Body mass index is 25.07 kg/(m^2) as calculated from the following: Height as of this encounter: 5' 5.5(1.664 m). Weight as of this encounter: 153 lb(69.4 kg). BP completed using cuff size: regular Brynn Hammond LPN documented in this encounter Plan of Treatment Upcoming Encounters Date Type Specialty Care Team Description 11/15/2021 Office Visit Wound Care Luis Camara, [place] [address] [place] [phone] (Wo rk) documented as of this encounter Visit Diagnoses Diagnosis Opiate dependence (H) - Primary Opioid type dependence, unspecified Moderate major depression (H) Major depressive disorder, single episod e, moderate documented in this encounter Care Teams Rail Signal Worker Relationship Specialty Start Date End Date Edgar Alfredo MD PCP - General Family Practice 04/13/12 08/11/[address] [place] [address] [address] [place] [address] documented as of this encounter
--- OUTSIDE RECORDS SUMMARY | 2021-11-10 00:50 | XMS_ITS | Encounter Summary ---
:1980 Author Organization [place] Address [facility]0 [facility] [address] Care Team Providers Name Role Phone Edgra Alfredo MD Primary Care Provider Reason for Visit Reason Onset Date Comments Erroneous encounter-disregard 09/22/2012 Encounter Details Date Type Department Care Team Description [facility] Clinic Ashly VÁSQUEZ encounter-disregard [address] [place] [address] [place] [address] [address] [place] [address] [phone] (Wo rk) Social History Tobacco Use Types Packs/Day Years Used Date Current Every Day Smoker Cigarettes 0.5 10 Smokeless Tobacco: Never Used Alcohol Use Standard Drinks/Week Comments No 0 (1 standard drink = 0.6 oz pure alcoho l) Sex Assigned at Date Recorded Female 01/14/2020 10:57 AM NURSE FIRST ASSIST documented as of this encounter Plan of Treatment Upcoming Encounters Date Type Specialty Care Team Description 11/15/2021 Office Visit Wound Care Luis Camara DPM [address] [place] [address] (Wo rk) documented as of this encounter Visit Diagnoses Diagnosis Moderate major depression (H) - Primary Major depressive disorder, single episod e, moderate documented in this encounter Care Teams Vice President Of Recruiting Relationship Specialty Start Date End Date Amer, Edgar Abrahan, MD PCP - General Family Practice 04/13/12 08/11/14 [address] [facility] [address] [place] [address] documented as of this encounter
--- OUTSIDE RECORDS SUMMARY | 2021-11-10 00:50 | XMS_ITS | Encounter Summary ---
:1980 Author Organization [place] Address [facility]0 [facility] [place] [address] Care Team Providers Name Role Phone None, Bfp Primary Care Provider Unavailable Reason for Visit Reason Onset Date Comments Refill Request 03/31/2012 Encounter Details Date Type Department Care Team Description 03/31/[address] [facility] Nithya Alfredo MD Refill Request [place] [address] [place] [address] [address] [phone] [place] [phone] Social History Tobacco Use Types Packs/Day Years Used Date Current Every Day Smoker Cigarettes 0.5 10 Smokeless Tobacco: Never Used Alcohol Use Standard Drinks/Week Comments No 0 (1 standard drink = 0.6 oz pure alcoho l) Sex Assigned at Date Recorded Female 01/14/2020 10:57 AM TELEPHONY ENGINEER documented as of this encounter Miscellaneous Notes Telephone Encounter - Madonna Cody - 03/31/2012 1:12 PM CST Script for subutex was faxed to the [facility] in [place]. PHONY ENGINEER Telephone Encounter - Edgar Alfredo MD - 03/31/2012 12:25 PM CST advised appointment in 1 week Will reduce Subutex to 6 mg PHONY ENGINEER Telephone Encounter - Abel Sal - 03/31/2012 12:20 PM CST Pt missed appt this am. Couldn't get a ride. Asked Dr. Alfredo about situation.Pt was informed that could still see her for her Subutex refill if she can get here w/i the hour. She said it would take over 1-1/2 hours to get here from [place]. Pt was informed the best that can be done is to get a note to Dr. Alfredo and he can call you. Pt's cell#:[phone] PHONY ENGINEER documented in this encounter Plan of Treatment Upcoming Encounters Date Type Specialty Care Team Description 11/15/2021 Office Visit Wound Care Luis Camara, [place] [address] [place] [phone] (Wo rk) documented as of this encounter Visit Diagnoses Diagnosis complicated by chemical depend ency, antepartum - Primary Drug dependence, antepartum documented in this encounter Care Teams Agile Tester Relationship Specialty Start Date End Date None, Bfp PCP - General 03/02/99 04/12/12 documented as of this encounter
--- OUTSIDE RECORDS SUMMARY | 2021-11-10 00:50 | XMS_ITS | Encounter Summary ---
:1980 Author Organization [place] Address [facility] [place] [address] Care Team Providers Name Role Phone Edgar Alfredo MD Primary Care Provider Reason for Visit Reason Onset Date Comments Medication Request 06/30/2012 Encounter Details Date Type Department Care Team Description 06/30/2012 Telephone [facility] Edgar Alfredo Ma rk, Medication Request Ashly VÁSQUEZ [address] [place] [address] [place] [address] [address] [place] [phone] (Reinaldo rk) Social History Tobacco Use Types Packs/Day Years Used Date Current Every Day Smoker Cigarettes 0.5 10 Smokeless Tobacco: Never Used Alcohol Use Standard Drinks/Week Comments No 0 (1 standard drink = 0.6 oz pure alcoho l) Sex Assigned at Date Recorded Female 01/14/2020 10:57 AM LINEMAN A CLASS documented as of this encounter Miscellaneous Notes Telephone Encounter - Madonna Cody - 07/01/2012 11:54 AM CDT [facility] [place] Telephone Encounter - Chapis Diaz - 06/30/2012 2:24 PM CDT See message /refill from yesterday Chapis Diaz RN Telephone Encounter - Chapis Diaz - 06/30/2012 2:15 PM CDT Pt states she called yesterday regarding subutex needing refilled. Telephone Encounter - Victoria Grant - 06/30/2012 2:12 PM CDT Pt calling regarding a refill of her subutex. Is out and needs it filled today. Stated she called yesterday and thought might have filled it already. Please call pt at [phone] documented in this encounter Plan of Treatment Upcoming Encounters Date Type Specialty Care Team Description 11/15/2021 Office Visit Wound Care Luis Camara, [place] [address] [place] [address] (Wo rk) documented as of this encounter Visit Diagnoses Not on filedocumented in this encounter Care Teams Awning Craftsperson Relationship Specialty Start Date End Date dEgar Alfredo MD PCP - General Family Practice 04/13/12 08/11/[address] [facility] [address] [place] [phone] documented as of this encounter
--- OUTSIDE RECORDS SUMMARY | 2021-11-10 00:51 | XMS_ITS | Encounter Summary ---
:1980 Author Organization [place] Address [facility] [place] [address] Care Team Providers Name Role Phone None, Bfp Primary Care Provider Unavailable Reason for Visit Reason Onset Date Comments Medication Request 02/21/2012 Encounter Details Date Type Department Care Team Description 02/21/2012 Telephone [facility] Edgar Alfredo Ma rk, Medication Request [facility] [address] [place] [address] [place] [address] [address] [place] [phone] [phone] (Wo rk) Social History Tobacco Use Types Packs/Day Years Used Date Current Every Day Smoker Cigarettes 0.5 10 Smokeless Tobacco: Never Used Alcohol Use Standard Drinks/Week Comments No 0 (1 standard drink = 0.6 oz pure alcoho l) Sex Assigned at Date Recorded Female 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 R SERVICE SUPERVISOR Telephone Encounter - Edgar Alfredo MD - 02/21/2012 3:26 PM CST 6 tabs ordered R SERVICE SUPERVISOR Telephone Encounter - Chapis Diaz - 02/21/2012 2:38 PM CST Not on nursing protocol, unable to fill medication. Please fill if appropriate. Chapis Diaz RN R SERVICE SUPERVISOR Telephone Encounter - Madonna Cody - 02/21/2012 2:28 PM CST Stephani only has one subutex left and she made an appointment with you for next and wondering if you could refill her prescription until she comes in. She said that its the Cub that is in her file. If any questions she can be reached at [phone]. R SERVICE SUPERVISOR documented in this encounter Plan of Treatment Upcoming Encounters Date Type Specialty Care Team Description 11/15/2021 Office Visit Wound Care Luis Camara DPM [address] [place] [phone] (Wo rk) documented as of this encounter Visit Diagnoses Diagnosis Opiate dependence (H) - Primary Opioid type dependence, unspecified documented in this encounter Care Teams Metal Casket Assembler Relationship Specialty Start Date End Date None, Bfp PCP - General 03/02/99 04/12/12 documented as of this encounter
--- OUTSIDE RECORDS SUMMARY | 2021-11-10 00:51 | XMS_ITS | Encounter Summary ---
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 CBC WITH PLATELETS STAT 05/24/2009 12:20 AM Re sults for this CDT procedure are i n the results section. documented in this encounter Results (ABNORMAL) Drug abuse screen 77 urine (FL, RH, SH) (05/24/2009 12:28 AM CDT) [facility] Method Time Signature Amphetamine Qual Negative NEG MISYS Urine Comment: Cutoff for a negative amphetam ine is 500 ng/mL or less. Opiates Qualitative Urine Positive (A) NEG M ISYS Comment: Cutoff for a positive opiate is greater than 300 ng/mL. This is an unconfirmed screening result to be used for medical purposes only. PCP Qual Urine Negative NEG MISYS Comment: Cutoff for a negative PCP is 2 5 ng/mL or less. Benzodiazepine Qual Urine Negative NEG MISY S Comment: Cutoff for a negative benzodia zepine is 200 ng/mL or less. Barbiturates Qual Urine Negative NEG MISYS Comment: Cutoff for a negative barbitur ate is 200 ng/mL or less. Cocaine Qual Urine Negative NEG MISYS Comment: Cutoff for a negative cocaine is 300 ng/mL or less. Cannabinoids Qual Urine Negative NEG MISYS Comment: Cutoff for a negative cannabin oid is 50 ng/mL or less. Specimen Anatomical Collection Method Collection Time Receive d Time (Source) Location / / Volume Laterality 05/24/2009 12:28 05/24/2009 AM CDT 12:10 AM CDT Solomon Whelan MD LAB - URINE ORDERABLES Performing Organization Address City/State/ZIP Code Phon e Number MISYS CBC with platelets (05/24/2009 12:20 AM CDT) P athologist Signature MCV 85 78 - 100 fl M[facility] MCH 28.8 26.5 - 33.0 [facility] pg MCHC 33.9 31.5 - 36.5 [facility] g/dL RDW 13.4 10.0 - 15.0 MIS[facility] % WBC 6.2 4.0 - 11.0 [facility] 10e9/L RBC Count 4.90 3.8 - 5.2 [facility] 10e12/L Hemoglobin 14.1 11.7 - 15.7 [facility] g/dL Hematocrit 41.6 35.0 - 47.0 [facility] % Platelet Count 291 150 - 450 [facility] 10e9/L Specimen Anatomical Collection Method Collection Time Receive d Time (Source) Location / / Volume Laterality 05/24/2009 12:20 05/24/2009 AM CDT 12:10 AM CDT Solomon Whelan MD LAB - BLOOD ORDERABLES Performing Organization Address City/State/ZIP Code Phon e Number MISYS documented in this encounter Visit Diagnoses Not on filedocumented in this encounter Care Teams Nurse Supervisor Relationship Specialty Start Date End Date None, Bfp PCP - General 03/02/99 04/12/12 documented as of this encounter
--- OUTSIDE RECORDS SUMMARY | 2021-11-10 00:51 | XMS_ITS | Encounter Summary ---
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 HEMOGRAM DIFFERENTIAL STAT 08/30/2006 3:06 PM Results for this AND PLATELET CDT procedure are i n the results section. LYMES ANTIBODIES TOTAL STAT 08/30/2006 3:06 PM Results for this CDT procedure are i n the results section. ERYTHROCYTE STAT 08/30/2006 3:06 PM Results f or this SEDIMENTATION RATE CDT procedure are in AUTO the results section. BASIC METABOLIC PANEL STAT 08/30/2006 3:06 PM Results for this CDT procedure are i n the results section. HCG QUALITATIVE URINE STAT 08/30/2006 2:52 PM Results for this CDT procedure are i n the results section. documented in this encounter Results (ABNORMAL) CRP inflammation (08/30/2006 3:06 PM CDT) [facility] GoFish Method Time Signature CRP Inflammation 8.6 (H) 0.0 - 8.0 MISYS mg/L Specimen Anatomical Collection Method Collection Time Receive d Time (Source) Location / / Volume Laterality 08/30/2006 3:06 PM 200 7 2:52 CDT PM CDT Inder Barillas MD LAB - BLOOD ORDERABLES Performing Organization Address City/State/ZIP Code Phon e Number MISYS Hemogram differential and platelet (08/30/2006 3:06 PM CDT) [facility] [employer]Fish Method Time Signature MCV 89 78 - 100 MISYS fl MCH 30.5 26.5 - MISYS 33.0 pg MCHC 34.3 31.5 - MISYS 36.5 g/dL RDW 13.5 10.0 - MISYS 15.0 % WBC 6.6 4.0 - MISYS 11.0 10e9/L RBC Count 4.13 3.8 - 5.2 MISYS 10e12/L Hemoglobin 12.6 11.7 - MISYS 15.7 g/dL Hematocrit 36.7 35.0 - MISYS 47.0 % % Neutrophils 45 40 - 75 % MISYS % Lymphocytes 45 20 - 48 % MISYS % Monocytes 7 0 - 12 % MISYS % Eosinophils 3 0 - 6 % MISYS % Basophils 0 0 - 2 % MISYS Platelet Count 238 150 - 450 MISYS 10e9/L Absolute 2.9 1.6 - 8.3 MISYS Neutrophil 10e9/L Absolute 3.0 0.8 - 5.3 MISYS Lymphocytes 10e9/L Absolute 0.4 0.0 - 1.3 MISYS Monocytes 10e9/L Absolute 0.2 0.0 - 0.7 MISYS Eosinophils 10e9/L Absolute 0.0 0.0 - 0.2 MISYS Basophils 10e9/L Diff Method Automated MISYS Method Specimen Anatomical Collection Method Collection Time Receive d Time (Source) Location / / Volume Laterality 08/30/2006 3:06 PM 7 2:52 CDT PM CDT Inder Barillas MD LAB - BLOOD ORDERABLES Performing Organization Address City/[facility] Code Phon e Number MISYS (ABNORMAL) Basic metabolic panel (08/30/2006 3:06 PM CDT) athologist Signature Sodium 144 133 - 144 MISYS mmol/L Potassium 3.5 3.4 - 5.3 MISYS mmol/L Chloride 111 (H) 94 - 109 MISYS mmol/L Carbon Dioxide 23 20 - 32 MISYS mmol/L Glucose 89 60 - 99 MISYS mg/dL Urea Nitrogen 11 5 - 24 MISYS mg/dL Creatinine 0.75 0.60 - MISYS 1.30 mg/dL GFR Estimate >90 >60 MISYS mL/min/1.7 m2 GFR Estimate If >90 >60 MISYS Black mL/min/1.7 m2 Calcium 8.8 8.5 - 10.4 MISYS mg/dL Anion Gap 11 6 - 17 MISYS mmol/L Specimen Anatomical Collection Method Collection Time Receive d Time (Source) Location / / Volume Laterality 08/30/2006 3:06 PM 7 2:52 CDT PM CDT Inder Barillas MD LAB - BLOOD ORDERABLES Performing Organization Address City/[facility] Code Phon e Number MISYS Erythrocyte sedimentation rate auto (08/30/2006 3:06 PM CDT) athologist Signature Sed Rate 17 0 - 20 mm/h MISYS Specimen Anatomical Collection Method Collection Time Receive d Time (Source) Location / / Volume Laterality 08/30/2006 3:06 PM 7 2:52 CDT PM CDT Inder Barillas MD LAB - BLOOD ORDERABLES Performing Organization Address [facility]/ZIP Code Phon e Number MISYS Lymes antibodies total (08/30/2006 3:06 PM CDT) athologist Signature Lyme ABYS Total 0.28 MISYS Serum Comment: Reference range: 0.00 to 1.20 Unit: NINA (Note) REFERENCE INTERVAL: Borrelia Burgdorferi Abs,Total by BETSY 0.99 NINA or Less: ...... Negative: Anti body to Borrelia ?b urgdorferi not detected. 1.00 - 1.20 NINA......... Equivocal: Rep eat testing in ?1 0-14 days may be helpful. 1.21 NINA or Greater: ... Positive: Prob able presence of ?a ntibody to Borrelia ?b urgdorferi detected. Performed by [employer], [address] [place] [id number] [email or web address], ??Scout Goodman MD - Lab. Director Specimen Anatomical Collection Method Collection Time Receive d Time (Source) Location / / Volume Laterality 08/30/2006 3:06 PM 200 7 2:52 CDT PM CDT Inder Barillas MD LAB - BLOOD ORDERABLES Performing Organization Address City/[facility] Phon e Number MISYS HCG qualitative urine (08/30/2006 2:52 PM CDT) P athologist Signature HCG Qual Urine Negative NEG MISYS Specimen Anatomical Collection Method Collection Time Receive d Time (Source) Location / / Volume Laterality 08/30/2006 2:52 PM 200 7 2:52 CDT PM CDT Inder Barillas MD LAB - URINE ORDERABLES Performing Organization Address City/[facility] Phon e Number MISYS documented in this encounter Visit Diagnoses Not on filedocumented in this encounter Care Teams Almond Pan Finisher Relationship Specialty Start Date End Date None, Bfp PCP - General 03/02/99 04/12/12 documented as of this encounter
--- OUTSIDE RECORDS SUMMARY | 2021-11-10 00:51 | XMS_ITS | Encounter Summary ---
:1980 Author Organization [place] Address [facility] [address] Care Team Providers Name Role Phone None, Bfp Primary Care Provider Unavailable Reason for Visit Reason Comments RECHECK please ask about current PAP date Recheck Medication Encounter Details Date Type Department Care Team Description 11/07[facility]2011 [facility] de pendence (H) (Primary Dx); Clinic Ashly Gauthier MD Moderate major depression (H) [address] [facility] [address] 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 Since last visit patient has been: doing well. There has been: moderate craving. Cues to use and relapse triggers have been: mild. Recovery program has been: ignored. Contact with sponsor has been: talks to sponsor daily Family and support system has been: neutral. Patient has been going to recovery meetings:not at all. Sobriety: no use since last visit Drug Screen: patient willing but screen unnecessary Suboxone Dose: adequate Side Effects: none Plan for Suboxone for next period: no change Questions answered: yes Issues discussed: compliance with dose Next visit: 1 month; 20 minutes were spent with patient with more than 50% of time spent in counseling and coordination of care; discussed addiction to Suboxone , slow taper off, recovery documented in this encounter Nursing Notes 11/07/2011 11:30 AM CDT >> FERN MARINELLI Zoe Nov 07, 2011 12:33 PM Script for suboxone was faxed to the [facility] >> ROSALINE VAZQUEZ [facility] Nov 07, 2011 11:42 AM Patient presents with: RECHECK - please ask about current PAP date Recheck Medication Initial BP 113/65 Pulse 88 Wt 173 lb (78.472 kg) SpO2 99% Estimated Body mass index is 28.35 kg/(m^2) as calculated from the following: Height as of 12: 5' 5.5(1.664 m). Weight as of this encounter: 173 lb(78.472 kg).. BP completed using cuff size: regular Rosaline aVzquez FIELD SERVICE TECHNICIAN POULTRY documented in this encounter Plan of Treatment Upcoming Encounters Date Type Specialty Care Team Description 11/15/2021 Office Visit Wound Care Luis Camara DPM [address] [place] [address] (Wo rk) documented as of this encounter Visit Diagnoses Diagnosis Opiate dependence (H) - Primary Opioid type dependence, unspecified Moderate major depression (H) Major depressive disorder, single episod e, moderate documented in this encounter Care Teams Lithopress Operator Relationship Specialty Start Date End Date None, Bfp PCP - General 03/02/99 04/12/12 documented as of this encounter
--- OUTSIDE RECORDS SUMMARY | 2021-11-10 00:51 | XMS_ITS | Encounter Summary ---
:1980 Author Organization [place] Address [facility]0 [facility] [place] [address] Care Team Providers Name Role Phone None, Bfp Primary Care Provider Unavailable Edgar Alfredo MD Primary Care Provider Reason for Visit Reason Onset Date Comments Health Maintenance 10/28/2011 LDL goal Encounter Details Date Type Department Care Team Description 10/28/2011 Telephone [facility] Edgar Alfredo [facility] Maintenance (LDL [facility] [place] goal ) [address] [facility] [address] [place] [address] [address] [place] [phone] (Wo rk) Social History Tobacco Use Types Packs/Day Years Used Date Current Every Day Smoker Cigarettes 0.5 10 Smokeless Tobacco: Never Used Alcohol Use Standard Drinks/Week Comments No 0 (1 standard drink = 0.6 oz pure alcoho l) Sex Assigned at Date Recorded Female 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 Marycarmen Spence RN documented in this encounter Plan of Treatment Upcoming Encounters Date Type Specialty Care Team Description 11/15/2021 Office Visit Wound Care Lius Camara, CALVIN [address] [place], [place] [phone] (Wo rk) documented as of this encounter Visit Diagnoses Not on filedocumented in this encounter Care Teams Circulation Representative Relationship Specialty Start Date End Date None, Bfp PCP - General 03/02/99 04/12/12 Edgar Alfredo MD PCP - General Family Practice 04/13/12 08/11/[address] [place], [place] [address] [address] [place] [phone] documented as of this encounter
--- OUTSIDE RECORDS SUMMARY | 2021-11-10 00:51 | XMS_ITS | Encounter Summary ---
:1980 Author Organization [place] Address [facility] [place] [address] Care Team Providers Name Role Phone None, Bfp Primary Care Provider Unavailable Reason for Visit Reason Onset Date Comments Call Back 12/26/2011 Encounter Details Date Type Department Care Team Description 12/26/2011 Telephone [facility] Nithya Alfredo MD Call Back [place] [address] [place] [address] [address] [phone] [place] [address] [phone] Social History Tobacco Use Types Packs/Day Years Used Date Current Every Day Smoker Cigarettes 0.5 10 Smokeless Tobacco: Never Used Alcohol Use Standard Drinks/Week Comments No 0 (1 standard drink = 0.6 oz pure alcoho l) Sex Assigned at Date Recorded Female 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 Pt gave call back # [phone]. Woody initially asked to speak to Dr Alfredo, stated it was a life threatening situation re pt's currentpregnancy, pt came on phone and asked to make an appt with Dr Alfredo, first available is 01-01, pt states she will be out of pills by then, pt wanting call back from Dr Alfredo. NSED OPTICAL DISPENSER documented in this encounter Plan of Treatment Upcoming Encounters Date Type Specialty Care Team Description 11/15/2021 Office Visit Wound Care Luis Camara, CALVIN [address] [place] [address] (Wo rk) documented as of this encounter Visit Diagnoses Not on filedocumented in this encounter Care Teams Taping Foreman Relationship Specialty Start Date End Date None, Bfp PCP - General 03/02/99 04/12/12 documented as of this encounter
--- OUTSIDE RECORDS SUMMARY | 2021-11-10 00:51 | XMS_ITS | Encounter Summary ---
:1980 Author Organization [place] Address [facility] [place] [address] Care Team Providers Name Role Phone None, Bfp Primary Care Provider Unavailable Edgar Alfredo MD Primary Care Provider Reason for Visit Reason Onset Date Comments Medication Compliance Issues 01/02/2012 Subutex Encounter Details Date Type Department Care Team Description 01/02/2012 Telephone [facility] Edgar Alfredo, [facility] ication Compliance Clinic Ashly VÁSQUEZ Issues (Subutex) [address] [facility] [address] [place] [address] [address] [place] [phone] (Wo rk) Social History Tobacco Use Types Packs/Day Years Used Date Current Every Day Smoker Cigarettes 0.5 10 Smokeless Tobacco: Never Used Alcohol Use Standard Drinks/Week Comments No 0 (1 standard drink = 0.6 oz pure alcoho l) Sex Assigned at Date Recorded Female 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 Marycarmen Spence RN CIATE PROFESSOR OF MEDICINE Telephone Encounter - Edgar Alfredo MD - 01/02/2012 4:49 PM CST Patient was on 12 mg Suboxone I am reducing dose to 10 mg for 2 weeks then 8 mg per day Since she is I have switched to Subutex CIATE PROFESSOR OF MEDICINE Telephone Encounter - Alia Cunningham - 01/02/2012 4:45 PM CST Clinic Action Needed: Call pharmacy to verify medication and dosage. Reason for Call: To clarify med order for Subutex 8mg tab and 2mg tabs. Last prescribed Suboxone 8-2mg and was noted at last refill plans to decrease medication. Received order today for Subutex instead of Suboxone Patient Recommendations/Teaching:Message through [employer] and left message on phone. Teaching per [facility] Care guidelines. Routed to: Dr. Alfredo and nurse libby Cunningham, RN [place] [facility] [phone] CIATE PROFESSOR OF MEDICINE documented in this encounter Plan of Treatment Upcoming Encounters Date Type Specialty Care Team Description 11/15/2021 Office Visit Wound Care Luis Camara, CALVIN [address] [place] [address] (Wo rk) documented as of this encounter Visit Diagnoses Not on filedocumented in this encounter Care Teams Slate Picker Relationship Specialty Start Date End Date None, Bfp PCP - General 03/02/99 04/12/12 Edgar Alfredo MD PCP - General Family Practice 04/13/12 08/11/[address] [facility] [[email or web address] [address] [place] [address] documented as of this encounter
--- OUTSIDE RECORDS SUMMARY | 2021-11-10 00:51 | XMS_ITS | Encounter Summary ---
:1980 Author Organization [place] Address [facility] [place] [address] Care Team Providers Name Role Phone None, Bfp Primary Care Provider Unavailable Reason for Visit Reason Comments Recheck Medication please ask about recent PAP date- PCP patient needs LDL goal noted Encounter Details Date Type Department Care Team Description 10/24/[address] 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 documented as of this encounter Last Filed Vital Signs Vital Sign Reading Time Taken Comments Blood Pressure 108/67 10/24/2011 12:10 PM CDT Pulse 86 10/24/2011 12:10 PM CDT Temperature 36.3 ??C (97.4 ??F) 10/24/2011 12:10 PM CDT Respiratory Rate - - Oxygen Saturation 97% 10/24/2011 12:10 PM CDT Inhaled Oxygen Concentration - - Weight 77.1 kg (170 lb) 10/24/2011 12:10 PM CDT Height 166.4 cm (5' 5.5) 10/24/2011 12:10 PM CDT Body Mass Index 27.86 10/24/2011 12:10 PM CDT documented in this encounter Progress Notes Edgar Alfredo MD - 10/24/2011 1:50 PM CDT Here to receive sub maintenance Was going to [facility] and was on 24 mg Subutex daily Discharged because she missed appointment Has been getting from friends - 16 mg per day Discussed lower dose Drug screen next visit Had delivery 1 yr ago while on Subutex 24 mg of SIDS Jan 2012 PMH: reviewed Social history: reviewed ROS: CONSTITUTIONAL:NEGATIVE for fever, chills, change in weight RESP:NEGATIVE for significant cough or SOB CV: NEGATIVE for chest pain, palpitations or peripheral edema GI: NEGATIVE for nausea, abdominal pain, heartburn, or change in bowel habits NEURO: NEGATIVE for weakness, dizziness or paresthesias PSYCHIATRIC: NEGATIVE for changes in mood or affect BP 108/67 Pulse 86 Temp 97.4 ??F (36.3 ??C) Ht 5' 5.5 (1.664 m) Wt 170 lb (77.111 kg) BMI27.86 kg/m2 SpO2 97% EXAM: GENERAL APPEARANCE: healthy, alert and no distress NECK: no adenopathy, no asymmetry, masses, or scars and thyroid normal to palpation CV: regular rates and rhythm, normal S1 S2, no S3 or S4 and no murmur, click or rub NEURO: Normal strength and tone, mentation intact and speech normal PSYCH: mentation appears normal and affect normal/bright ASSESSMENT / PLAN: Opiate dependence (primary encounter diagnosis) Comment: Plan: buprenorphine (SUBUTEX) 8 MG SUBL, buprenorphine HCl-naloxone HCl (SUBOXONE) 8-2 MG FILM, Re-check 2 weeks documented in this encounter Nursing Notes 10/24/2011 11:30 AM CDT >> FERN YVES FriOct 24, 2011 12:39 PM Script for suboxone was faxed to the [facility] >> BRYNN HAMMOND FriOct 24, 2011 12:16 PM Patient presents with: Recheck Medication - PHQ2- please ask about recent PAP date- PCP patient needs LDL goal noted Initial BP 108/67 Pulse 86 Temp 97.4 ??F (36.3 ??C) Ht 5' 5.5 (1.664 m) Wt 170 lb (77.111 kg) BMI 27.86 kg/m2 SpO2 97% Estimated Body mass index is 27.86 kg/(m^2) as calculated from the following: Height as of this encounter: 5' 5.5(1.664 m). Weight as of this encounter: 170 lb(77.111 kg).. BP completed using cuff size: regular Brynn Hammond LPN documented in this encounter Plan of Treatment Upcoming Encounters Date Type Specialty Care Team Description 11/15/2021 Office Visit Wound Care Luis Camara, CALVIN [address] [place] [id number] (Wo rk) documented as of this encounter Visit Diagnoses Diagnosis Opiate dependence (H) - Primary Opioid type dependence, unspecified documented in this encounter Care Teams Trailer Driver Relationship Specialty Start Date End Date None, Bfp PCP - General 03/02/99 04/12/12 documented as of this encounter
--- OUTSIDE RECORDS SUMMARY | 2021-11-10 00:51 | XMS_ITS | Encounter Summary ---
:1980 Author Organization [place] Address [address] [place] [address]. 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 [facility] RT X-RAY KNEE 1 Routine 08/30/2006 3:27 PM Re sults for this OR 2 VIEW CDT procedure are i n the results section. documented in this encounter Results LT X-RAY KNEE 1 OR 2 VIEW (08/30/2006 3:28 PM CDT) Specimen (Source) Anatomical Collection Method Collection Time Re ceived Time Location / / Volume Laterality 08/30/2006 3:28 PM CDT Impressions RADIOLOGY RESULTS - 08/31/2006 11:59 AM CDT Two views of the bilateral knees, 007. COMPARISON: None. HISTORY: Knee pain. FINDINGS: Joint spaces are well-maintain ed within the bilateral knees. No bony abnormality is identified. There are no joint effusions. IMPRESSION: Normal knees. I have personally reviewed the image and initial interpretation and agree with the findings. Inder Barillas MD GENERAL IMAGING Performing Organization Address City/[facility] Phon e Number RADIOLOGY RESULTS RT X-RAY KNEE 1 OR 2 VIEW (08/30/2006 3:27 PM CDT) Specimen (Source) Anatomical Collection Method Collection Time Re ceived Time Location / / Volume Laterality 08/30/2006 3:27 PM CDT Impressions RADIOLOGY RESULTS - 08/31/2006 11:59 AM CDT Two views of the bilateral knees, 007. COMPARISON: None. HISTORY: Knee pain. FINDINGS: Joint spaces are well-maintain ed within the bilateral knees. No bony abnormality is identified. There are no joint effusions. IMPRESSION: Normal knees. I have personally reviewed the image and initial interpretation and agree with the findings. Inder Barillas MD GENERAL IMAGING Performing Organization Address City/State/ZIP Code Phon e Number RADIOLOGY RESULTS documented in this encounter Visit Diagnoses Not on filedocumented in this encounter Care Teams Maintenance Department Manager Relationship Specialty Start Date End Date None, Bfp PCP - General 03/02/99 04/12/12 documented as of this encounter
--- OUTSIDE RECORDS SUMMARY | 2021-11-10 00:51 | XMS_ITS | Encounter Summary ---
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 NEISSERIA GONORRHOEAE Routine 04/10/2010 11:55 Re sults for this PCR PM INVESTOR RELATIONS MANAGER procedure are i n the results section. CHLAMYDIA TRACHOMATIS Routine 04/10/2010 11:55 Re sults for this PCR PM INVESTOR RELATIONS MANAGER procedure are i n the results section. CBC WITH PLATELETS & STAT 04/10/2010 11:20 Res ults for this DIFFERENTIAL PM INVESTOR RELATIONS MANAGER procedure are i n the results section. BILIRUBIN TOTAL Routine 04/10/2010 11:20 Results for this PM INVESTOR RELATIONS MANAGER procedure are i n the results section. AST Routine 04/10/2010 11:20 Results for this PM INVESTOR RELATIONS MANAGER procedure are i n the results section. ALT Routine 04/10/2010 11:20 Results for this PM INVESTOR RELATIONS MANAGER procedure are i n the results section. ALKALINE PHOSPHATASE Routine 04/10/2010 11:20 Res ults for this PM INVESTOR RELATIONS MANAGER procedure are i n the results section. BASIC METABOLIC PANEL STAT 04/10/2010 11:20 Re sults for this PM INVESTOR RELATIONS MANAGER procedure are i n the results section. ROUTINE UA WITH STAT 04/10/2010 10:14 Results for this MICROSCOPIC PM INVESTOR RELATIONS MANAGER procedure are i n the results section. URINE CULTURE Routine 04/10/2010 10:14 Results fo r this PM INVESTOR RELATIONS MANAGER procedure are i n the results section. documented in this encounter Results Chlamydia trachomatis PCR (04/10/2010 11:55 PM INVESTOR RELATIONS MANAGER) Component Value Ref Test Analysis Performed At [facility] Method Time Signature Specimen Cervical MISYS Description Chlamydia Negative for C. MISYS Trachomatis PCR trachomatis rRNA by army senior officer mediated amplification. Comment: A negative result by army senior officer medi ated amplification does not preclude the presence of C. trachomatis infection be cause results are dependent on proper and adequate collection, absence of inh ibitors, and sufficient rRNA to be detected. Specimen Anatomical Collection Method Collection Time Receive d Time (Source) Location / / Volume Laterality 04/10/2010 11:55 04/11/2010 PM INVESTOR RELATIONS MANAGER 12:10 AM INVESTOR RELATIONS MANAGER Physician No Ref-Primary LAB - MICRO GENERAL ORDERABL ES Performing Organization Address [facility]/ZIP Code Phon e Number MISYS Neisseria gonorrhoeae PCR (04/10/2010 11:55 PM INVESTOR RELATIONS MANAGER) [facility] Method Time Signature Specimen Cervical MISYS Descrip N Gonorrhea Negative for N. MISYS PCR gonorrhoeae rRNA by army senior officer mediated amplification. Comment: A negative result by army senior officer medi ated amplification does not preclude the presence of N. gonorrhoeae infection be cause results are dependent on proper and adequate collection, absence of inh ibitors, and sufficient rRNA to be detected. Specimen Anatomical Collection Method Collection Time Receive d Time (Source) Location / / Volume Laterality 04/10/2010 11:55 04/11/2010 PM INVESTOR RELATIONS MANAGER 12:10 AM INVESTOR RELATIONS MANAGER Physician No Ref-Primary LAB - MICRO GENERAL ORDERABL ES Performing Organization Address City/State/ZIP Code Phon e Number MISYS Wet prep (04/10/2010 11:55 PM INVESTOR RELATIONS MANAGER) [facility] Method Time Signature Specimen Vagina MISYS Description Micro Report FINAL MISYS Status 04/11/2010 Wet Prep Moderate MISYS PMNs seen Comment: No yeast seen No Trichomonas seen Clue cells seen Specimen Anatomical Collection Method Collection Time Receive d Time (Source) Location / / Volume Laterality 04/10/2010 11:55 04/11/2010 PM INVESTOR RELATIONS MANAGER 12:10 AM INVESTOR RELATIONS MANAGER Physician No Ref-Primary LAB - MICRO GENERAL ORDERABL ES Performing Organization Address City/State/ZIP Code Phon e Number MISYS (ABNORMAL) CBC with platelets differential (04/10/2010 11:20 PM INVESTOR RELATIONS MANAGER) [facility] gist Method Time Signature MCV 87 78 - 100 MISYS fl MCH 30.3 26.5 - MISYS 33.0 pg MCHC 35.0 31.5 - MISYS 36.5 g/dL RDW 12.5 10.0 - MISYS 15.0 % WBC 9.9 4.0 - MISYS 11.0 10e9/L RBC Count 4.06 3.8 - 5.2 MISYS 10e12/L Hemoglobin 12.3 11.7 - MISYS 15.7 g/dL Hematocrit 35.1 35.0 - MISYS 47.0 % % Neutrophils 79.5 (H) 40 - 75 % MISYS % Lymphocytes 14.2 (L) 20 - 48 % MISYS % Monocytes 6.0 0 - 12 % MISYS % Eosinophils 0.3 0 - 6 % MISYS % Basophils 0.0 0 - 2 % MISYS Platelet Count 156 150 - 450 MISYS 10e9/L Absolute 7.9 1.6 - 8.3 MISYS Neutrophil 10e9/L Absolute 1.4 0.8 - 5.3 MISYS Lymphocytes 10e9/L Absolute 0.6 0.0 - 1.3 MISYS Monocytes 10e9/L Absolute 0.0 0.0 - 0.7 MISYS Eosinophils 10e9/L Absolute 0.0 0.0 - 0.2 MISYS Basophils 10e9/L Diff Method Automated MISYS Method Specimen Anatomical Collection Method Collection Time Receive d Time (Source) Location / / Volume Laterality 04/10/2010 11:20 04/10/2010 PM INVESTOR RELATIONS MANAGER 11:03 PM INVESTOR RELATIONS MANAGER Breanna Main MD LAB - BLOOD ORDERABLES Performing Organization Address City/State/ZIP Code Phon e Number MISYS Basic metabolic panel (04/10/2010 11:20 PM INVESTOR RELATIONS MANAGER) athologist Signature Sodium 135 133 - 144 MISYS mmol/L Potassium 3.8 3.4 - 5.3 MISYS mmol/L Chloride 103 94 - 109 MISYS mmol/L Carbon Dioxide 25 20 - 32 MISYS mmol/L Glucose 89 60 - 99 MISYS mg/dL Urea Nitrogen 7 5 - 24 MISYS mg/dL Creatinine 0.59 0.52 - 1.04 MISYS mg/dL Comment: New IDMS-traceable calibration beginning 06/18/07 GFR Estimate >90 >60 mL/min/1.7m2 MISYS GFR Estimate If Black >90 >60 mL/min/1.7m2 M ISYS Calcium 8.9 8.5 - 10.4 mg/dL MISYS Anion Gap 7 6 - 17 mmol/L MISYS Specimen Anatomical Collection Method Collection Time Receive d Time (Source) Location / / Volume Laterality 04/10/2010 11:20 04/10/2010 PM INVESTOR RELATIONS MANAGER 11:03 PM INVESTOR RELATIONS MANAGER Breanna Main MD LAB - BLOOD ORDERABLES Performing Organization Address City/State/ZIP Code Phon e Number MISYS Alkaline phosphatase (04/10/2010 11:20 PM INVESTOR RELATIONS MANAGER) athologist Signature Alkaline 55 40 - 150 MISYS Phosphatase U/L Specimen Anatomical Collection Method Collection Time Receive d Time (Source) Location / / Volume Laterality 04/10/2010 11:20 04/11/2010 PM INVESTOR RELATIONS MANAGER 12:08 AM INVESTOR RELATIONS MANAGER Breanna Main MD LAB - BLOOD ORDERABLES Performing Organization Address City/State/ZIP Code Phon e Number MISYS ALT (04/10/2010 11:20 PM INVESTOR RELATIONS MANAGER) athologist Signature ALT 41 0 - 50 U/L MISYS Specimen Anatomical Collection Method Collection Time Receive d Time (Source) Location / / Volume Laterality 04/10/2010 11:20 04/11/2010 PM INVESTOR RELATIONS MANAGER 12:08 AM INVESTOR RELATIONS MANAGER Breanna Main MD LAB - BLOOD ORDERABLES Performing Organization Address City/State/ZIP Code Phon e Number MISYS AST (04/10/2010 11:20 PM INVESTOR RELATIONS MANAGER) athologist Signature AST 31 0 - 45 U/L MISYS Specimen Anatomical Collection Method Collection Time Receive d Time (Source) Location / / Volume Laterality 04/10/2010 11:20 04/11/2010 PM INVESTOR RELATIONS MANAGER 12:08 AM INVESTOR RELATIONS MANAGER Breanna Main MD LAB - BLOOD ORDERABLES Performing Organization Address [facility] Code Phon e Number MISYS Bilirubin total (04/10/2010 11:20 PM INVESTOR RELATIONS MANAGER) athologist Signature Bilirubin Total 0.4 0.2 - 1.3 MISYS mg/dL Specimen Anatomical Collection Method Collection Time Receive d Time (Source) Location / / Volume Laterality 04/10/2010 11:20 04/11/2010 PM INVESTOR RELATIONS MANAGER 12:08 AM INVESTOR RELATIONS MANAGER Breanna Main MD LAB - BLOOD ORDERABLES Performing Organization Address [facility] Phon e Number MISYS (ABNORMAL) Routine UA with microscopic (04/10/2010 10:14 PM INVESTOR RELATIONS MANAGER) [facility] Method Time Signature Source Midstream MISYS Urine Color Urine Yellow MISYS Appearance Urine Slightly MISYS Cloudy Glucose Urine Negative NEG mg/dL MISYS Bilirubin Urine Negative NEG MISYS Ketones Urine Negative NEG mg/dL MISYS Specific [place] 1.019 1.003 - MISYS Urine 1.035 Blood Urine Negative NEG MISYS pH Urine 6.5 5.0 - 7.0 MISYS pH Protein Albumin 10 (A) NEG mg/dL MISYS Urine Urobilinogen Normal 0.0 - 2.0 MISYS mg/dL mg/dL Nitrite Urine Negative NEG MISYS Leukocyte Trace (A) NEG MISYS Esterase Urine WBC Urine 4 (H) 0 - 2 MISYS /HPF RBC Urine 1 0 - 2 MISYS /HPF Squamous 15 (H) 0 - 1 MISYS Epithelial /HPF /HPF Urine Bacteria Urine Many (A) NEG /HPF MISYS Mucous Urine Present (A) NEG /LPF MISYS Specimen Anatomical Collection Method Collection Time Receive d Time (Source) Location / / Volume Laterality 04/10/2010 10:14 04/10/2010 PM INVESTOR RELATIONS MANAGER 10:17 PM INVESTOR RELATIONS MANAGER Breanna Main MD LAB - URINE ORDERABLES Performing Organization Address [facility] Phon e Number MISYS Urine culture (04/10/2010 10:14 PM INVESTOR RELATIONS MANAGER) [facility] gist Method Time Signature Specimen Midstream MISYS Description Urine Culture Micro No growth MISYS Micro Report FINAL MISYS Status 04/12/2010 Specimen Anatomical Collection Method Collection Time Receive d Time (Source) Location / / Volume Laterality 04/10/2010 10:14 04/10/2010 PM INVESTOR RELATIONS MANAGER 10:37 PM INVESTOR RELATIONS MANAGER Physician No Ref-Primary LAB - MICRO GENERAL ORDERABL ES Performing Organization Address City/State/ZIP Code Phon e Number MISYS documented in this encounter Visit Diagnoses Not on filedocumented in this encounter Care Teams Telephone Surveyor Relationship Specialty Start Date End Date None, Bfp PCP - General 03/02/99 04/12/12 documented as of this encounter
--- OUTSIDE RECORDS SUMMARY | 2021-11-10 00:51 | XMS_ITS | Encounter Summary ---
:1980 Author Organization [facility] Address [address] [place] [address]. 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 HISTORY OF PRESENT ILLNESS: Stephani Mccormick is a 27-year-old female who presents to the emergency department ambulatory at 22:05 hours in the evening. The patient reports that she has had some chronic right heel pain since undergoing surgery to her calcaneal area in 2004. She describes the fact that she had sustained a crush injury to her right heel and did have to have plates and screws placed. She now states after standing on her feet for any length of time she develops significant pain and discomfort. She denies having the pain radiating up the leg. She has had no other pain in the foot. She states she has been using ibuprofen with some effect. PAST MEDICAL HISTORY: 1. Depression. 2. Right foot injury. MEDICATIONS: Zoloft, ibuprofen, vitamins. ALLERGIES: The patient has no known drug allergies. PHYSICAL EXAMINATION: VITAL SIGNS: Blood pressure 118/71, heart rate of 80, respiratory rate of 16, temperature is 97.4 degrees. EXTREMITIES: Examination of the right ankle shows there to be no erythema. There is no tenderness. There is an incision over the lateral aspect of the right calcaneus. There is no surrounding erythema in this area either. There is some diffuse tenderness on palpation of the calcaneus through the sole of the foot. The foot is pink and well perfused. She has normal sensation and moves her ankle freely. EMERGENCY DEPARTMENT COURSE: I did advise her that I could obtain an x-ray. However, I doubt that it was going to show that she had any loose hardware or subsequent injury. It certainly would be part of the evaluation. However, the patient states she was very frustrated with having to wait approximately an hour and a half to be seen and therefore wishes to go home and will follow up with a referral given to her for Orthopedics. DIAGNOSIS: Chronic heel pain. PLAN: The patient will be discharged to home. She was instructed to try using one of the [id number] gel heel inserts. If this is inadequate, she will be referred to orthopedics and can follow upwith Dr. Tipton this coming week. Electronically signed on 05/29/2008 16:12 by AKIRA GONZALEZ MD MT: [id number] Name: STEPHANI MCCORMICK MRN: [id number] Account: [id number] : 1980 Visit Date: 05/17/2008 Document: [id number] documented in this encounter Plan of Treatment Upcoming Encounters Date Type Specialty Care Team Description 11/15/2021 Office Visit Wound Care Luis Camara DPM [address] [place] [address] (Wo rk) documented as of this encounter Visit Diagnoses Not on filedocumented in this encounter Care Teams Golf Range Attendant Relationship Specialty Start Date End Date None, Bfp PCP - General 03/02/99 04/12/12 documented as of this encounter
--- OUTSIDE RECORDS SUMMARY | 2021-11-10 00:51 | XMS_ITS | Encounter Summary ---
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
--- OUTSIDE RECORDS SUMMARY | 2021-11-10 00:51 | XMS_ITS | Encounter Summary ---
:1980 Author Organization [place] Address [address] [facility] 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 HC X-RAY ANKLE 2 Routine 01/06/2005 1:45 PM Resul ts for this VIEWS RITUAL CIRCUMCISER procedure are i n the results section. documented in this encounter Results X-RAY FOOT 2 VW (01/06/2005 1:46 PM RITUAL CIRCUMCISER) Specimen (Source) Anatomical Collection Method Collection Time Re ceived Time Location / / Volume Laterality 01/06/2005 1:46 PM RITUAL CIRCUMCISER Impressions RADIOLOGY RESULTS - 01/07/2005 4:[address] 2 VIEW RIGHT FOOT AND 2 VIEW RIGHT ANKLE ?? HISTORY: ??Ankle pain, evaluate for frac ture. ?? FINDINGS: ??There is a fracture in the s agittal plane through the lateral aspect of the anterior calcaneus . There is at least a few millimeters of lateral and anterior disp lacement although the exact morphology of the fracture is difficult to determine because of its location. ??If clinically indicated, a C T examination should be more definitive in defining this fracture. ?? The calcaneal tuberosity region and posterior subtalar joint area s appear intact by plain films, but again, CT examination would b e more conclusive. ?? There is also a nondisplaced fracture in the sagittal plane through the medial base of the 1st metatarsal tess ne. This also appears acute and shows intraarticular extension. ? There are 2 tiny sliver-like bony densit ies projecting superior to the anterior talus and anterior navicula r respectively. ??These may be related to old injury or secondary to sm all acute avulsion fractures. ? In addition, on the lateral view there i s a small bony density projecting superior to the combined shad ow of the bases of the metatarsals. ??This may represent the sa me fracture seen at the base of the 1st metatarsal but an additional dorsal metatarsal base chip fracture at another metatarsal cannot be excluded. ? All of the additional areas described ab ove could be better evaluated with CT if clinically indicated. ? There is soft tissue swelling about the ankle and foot. Edgar Alfredo MD GENERAL IMAGING Performing Organization Address City/State/ZIP Code Phon e Number RADIOLOGY RESULTS X-RAY ANKLE 2 VW (01/06/2005 1:45 PM RITUAL CIRCUMCISER) Specimen (Source) Anatomical Collection Method Collection Time Re ceived Time Location / / Volume Laterality 01/06/2005 1:45 PM RITUAL CIRCUMCISER Impressions RADIOLOGY RESULTS - 01/07/2005 4:[address] 2 VIEW RIGHT FOOT AND 2 VIEW RIGHT ANKLE ?? HISTORY: ??Ankle pain, evaluate for frac ture. ?? FINDINGS: ??There is a fracture in the s agittal plane through the lateral aspect of the anterior calcaneus . There is at least a few millimeters of lateral and anterior disp lacement although the exact morphology of the fracture is difficult to determine because of its location. ??If clinically indicated, a C T examination should be more definitive in defining this fracture. ?? The calcaneal tuberosity region and posterior subtalar joint area s appear intact by plain films, but again, CT examination would b e more conclusive. ?? There is also a nondisplaced fracture in the sagittal plane through the medial base of the 1st metatarsal tess ne. This also appears acute and shows intraarticular extension. ? There are 2 tiny sliver-like bony densit ies projecting superior to the anterior talus and anterior navicula r respectively. ??These may be related to old injury or secondary to sm all acute avulsion fractures. ? In addition, on the lateral view there i s a small bony density projecting superior to the combined shad ow of the bases of the metatarsals. ??This may represent the sa me fracture seen at the base of the 1st metatarsal but an additional dorsal metatarsal base chip fracture at another metatarsal cannot be excluded. ? All of the additional areas described ab ove could be better evaluated with CT if clinically indicated. ? There is soft tissue swelling about the ankle and foot. Edgar Alfredo MD GENERAL IMAGING Performing Organization Address City/State/ZIP Code Phon e Number RADIOLOGY RESULTS documented in this encounter Visit Diagnoses Not on filedocumented in this encounter Care Teams Elevator Constructor Supervisor Relationship Specialty Start Date End Date None, Bfp PCP - General 03/02/99 04/12/12 documented as of this encounter
--- OUTSIDE RECORDS SUMMARY | 2021-11-10 00:51 | XMS_ITS | Encounter Summary ---
:1980 Author Organization [place] Address [address] [place] [address] Care Team Providers Name Role Phone None, Bfp Primary Care Provider Unavailable Encounter Details Date Type Department Care Team Description 10/04/2003 Emergency room Shavonne Ansari MD EMERGENCY PHYSIC [facility] [address] 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 HISTORY OF PRESENT ILLNESS: Stephani Mccormick is a 22-year-old female who states that she had the onset of dysuria one week ago with urinary frequency and states that she took some of her mother's penicillin, which was left over. She now complains of back pain. Last night she had right-sided flank pain and today she has left-sided flank pain. This is an aching soreness feeling,which is worse after urination. There is no fevers or chills, no nausea or vomiting, and no abdominal pain. PAST MEDICAL HISTORY: One UTI six years ago. MEDICATIONS: None. ALLERGIES: None. REVIEW OF SYSTEMS: See the history of present illness. The remainder of review of systems are negative. PHYSICAL EXAMINATION: VITAL SIGNS: Blood pressure 125/75, pulse 112, respiratory rate 18, temperature 99.2 orally. In general, the patient is awake and alert. She appears comfortable and in no acute distress. SKIN: Warm and dry, good color. HEENT: PERRLA. Nonicteric. Orals are clear. NECK: Supple, nontender, no adenopathy. CHEST: Clear to auscultation and equal. CARDIOVASCULAR: Regular rate and rhythm without murmurs, rubs or gallops. ABDOMEN: Soft, round, and nontender. BACK: There is mild left CVA tenderness. LABS AND DIAGNOSTIC TESTING: Urinalysis showed obvious signs of urinary tract infection with greater than WBCs, many bacteria, moderate blood, large leukocyte esterase, positive nitrites, and 5 to 10 RBCs. Urine test was negative. EMERGENCY DEPARTMENT COURSE AND TREATMENT: The patient was given ciprofloxacin 500 mg p.o. in the department as well as Pyridium 200 mg p.o. She was discharged with a prescription for ciprofloxacin 500 mg p.o. b.i.d. x10 days and Pyridium. I discussed with the patient that she has let the urinary tract infection advance to the point of pyelonephritis, which is very serious and if she does not take the antibiotics regularly and finish them she may require hospitalization and become very ill. She was told to return here as needed for vomiting, fevers or worsened pain. She should follow up with her private medical physician in two days if symptoms are not improving. FINAL DIAGNOSIS: Acute pyelonephritis. SHAVONNE ANSARI MD MT: Document: [id number] [place], [place] Name: STEPHANI MCCORMICK EMERGENCY ROOM ENCOUNTER Page 2 of 2 LCN: ER DSC: 09/21/2003 [place], [place] Name: STEPHANI MCCORMICK MR#: : Admit Date: -66 1980 09/21/2003 Doctor: SHAVONNE ANSARI MD EMERGENCY ROOM ENCOUNTER Page 1 of 2 documented in this encounter Plan of Treatment Upcoming Encounters Date Type Specialty Care Team Description 11/15/2021 Office Visit Wound Care Luis Camara DPM [address] [place] [phone] (Wo rk) documented as of this encounter Visit Diagnoses Not on filedocumented in this encounter Care Teams Manager Site Relationship Specialty Start Date End Date None, Bfp PCP - General 03/02/99 04/12/12 documented as of this encounter
--- OUTSIDE RECORDS SUMMARY | 2021-11-10 00:51 | XMS_ITS | Encounter Summary ---
:1980 Author Organization [place] Address [facility] [place] [address] Care Team Providers Name Role Phone None, Bfp Primary Care Provider Unavailable Reason for Visit Reason Comments Recheck Medication Encounter Details Date Type Department Care Team Description 01/02/2012 Office Visit [facility] Edgar Alfredo de pendence (H) (Primary Dx); Clinic Ashly Gauthier MD complicated by chemical depend ency, antepartum (H); [address] [facility] Vitamin B12 deficiency (non anaemic) [address] [place] [phone] Social History Tobacco Use Types Packs/Day Years Used Date Current Every Day Smoker Cigarettes 0.5 10 Smokeless Tobacco: Never Used Alcohol Use Standard Drinks/Week Comments No 0 (1 standard drink = 0.6 oz pure alcoho l) Sex Assigned at Date Recorded Female 01/14/2020 10:57 AM TALEND DEVELOPER documented as of this encounter Last Filed Vital Signs Vital Sign Reading Time Taken Comments Blood Pressure 108/58 01/02/2012 3:34 PM TALEND DEVELOPER Pulse 109 01/02/2012 3:34 PM TALEND DEVELOPER Temperature - - Respiratory Rate - - Oxygen Saturation 99% 01/02/2012 3:34 PM TALEND DEVELOPER Inhaled Oxygen Concentration - - Weight 73.5 kg (162 lb) 01/02/2012 3:34 PM TALEND DEVELOPER Height 166.4 cm (5' 5.5) 01/02/2012 3:34 PM TALEND DEVELOPER Body Mass Index 26.55 01/02/2012 3:34 PM TALEND DEVELOPER documented in this encounter Progress Notes Edgar Alfredo MD - 01/03/2012 7:14 AM CST Stephani Parker is here for a periodic Suboxone follow-up. Now ; discussed use of Subutex in . Since last visit patient has been: doing well. There has been: no craving. Cues to use and relapse triggers have been: mild. Recovery program has been: sporadic. Contact with sponsor has been: no sponsor. Family and support system has been: helpful. Patient has been going to recovery meetings:sporadically. Sobriety: no use since last visit Drug Screen: obtained Suboxone Dose: too high Side Effects: none Plan for Suboxone for next period: decrease dose to 10 mg daily for 2 weeks , then 8 mg daily of Subutex Questions answered: yes Issues discussed: Subutex in Next visit: 1 month 20 minutes were spent with patient with more than 50% of time spent in counseling and coordination of care Discussed with patient many issues of addiction, relapse, and establishing a solid recovery program. ND DEVELOPER documented in this encounter Nursing Notes 01/02/2012 3:45 PM CST >> FERN MARINELLI [facility] Jan 02, 2012 4:02 PM Script for subutex 8mg and subutex 2mg was faxed to the [facility] >> GIOVANNI HART [facility] Jan 02, 2012 3:35 PM Patient presents with: Recheck Medication Initial BP 108/58 Pulse 109 Ht 5' 5.5 (1.664 m) Wt 162 lb (73.483 kg) BMI 26.55 kg/m2 SpO2 99% Estimated Body mass index is 26.55 kg/(m^2) as calculated from the following: Height as of this encounter: 5' 5.5(1.664 m). Weight as of this encounter: 162 lb(73.483 kg).. BP completed using cuff size: large Giovanni Hart MA documented in this encounter Plan of Treatment Upcoming Encounters Date Type Specialty Care Team Description 11/15/2021 Office Visit Wound Care Luis Camara, DPM [address] [place] [address] (Wo rk) documented as of this encounter Procedures Procedure Name Priority Date/Time Associated Diagnosis Comme nts DRUG ABUSE SCREEN 6 Routine 01/02/2012 4:01 PM Opiate dependen ce Results for this CHEM DEP URINE TALEND DEVELOPER (H) procedure are in ([facility]) the results section. documented in this encounter Results Drug abuse screen 6 urine (chem dep) ([facility]) (01/02/2012 4:01 PM TALEND DEVELOPER) Component Value Ref Test Analysis Performed At [facility] gist Range Method Time Signature Amphetamine Qual Negative NEG [facility] Urine Cutoff for a negative amphetamine is 500 ng/mL or less. [facility] Barbiturates Qual Negative NEG [facility] Urine Cutoff for a negative barbiturate is 200 ng/mL or less. [facility] Benzodiazepine Negative NEG [facility] Qual Urine Cutoff for a negative benzodiazepine is 200 ng/mL or less . [facility] Cannabinoids Qual Negative NEG [facility] Urine Cutoff for a negative cannabinoid is 50 ng/mL or less. [facility] Cocaine Qual Negative NEG [facility] Urine Cutoff for a negative cocaine is 300 ng/mL or less. [facility] Ethanol Qual Negative NEG [facility] Urine Cutoff for a negative urine ethanol is 50 mg/dL or less. [facility] Opiates Negative NEG [facility] Qualitative Urine Cutoff for a negative opiate is 300 ng/mL or less. [facility] Specimen Anatomical Collection Method Collection Time Receive d Time (Source) Location / / Volume Laterality Urine specimen 01/02/2012 4:01 PM 012 4:02 (specimen) TALEND DEVELOPER PM TALEND DEVELOPER Edgar Alfredo MD LAB - URINE ORDERABLES Performing Organization Address City/State/ZIP Code Phon e Number [facility] [address] [place] [address] [facility] documented in this encounter Visit Diagnoses Diagnosis Opiate dependence (H) - Primary Opioid type dependence, unspecified complicated by chemical depend ency, antepartum Drug dependence, antepartum Vitamin B12 deficiency (non anaemic) Other B-complex deficiencies documented in this encounter Care Teams Clay Press Operator Relationship Specialty Start Date End Date None, Bfp PCP - General 03/02/99 04/12/12 documented as of this encounter
--- OUTSIDE RECORDS SUMMARY | 2021-11-10 00:51 | XMS_ITS | Encounter Summary ---
:1980 Author Organization [place] Address [address] [place] [address]. 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 HISTORY OF PRESENT ILLNESS: Stephani Mccormick is a 28-year-old female who delivered her baby about 2 weeksago. It was a normal spontaneous vaginal delivery a little early, but she did fine. She had some bleeding afterwards but that tapered off and she seems to be doing fine, but she about a few days after that she ended up getting an infection in a tooth and was on penicillin as well as Vicodin and about that time she started to have these fainting spells. They are getting less calm now and she has neverreally been completely out. She just felt near fainting. At one point she actually fell to the ground and got a cut on her head. That was on Friday and her mom was concerned because she had a headache today and her mom was concerned with the previous head injury and now headache that something couldbe going on, so she came in to be seen. PAST MEDICAL HISTORY: She delivered her child 2 weeks ago. She has another child as well. MEDICATIONS: The penicillin just finishing a course with this. She had some Vicodin but she finished that up this weekend. She had ibuprofen and Tylenol. ALLERGIES: None. REVIEW OF SYSTEMS: No nausea, vomiting, no tingling and no numbness and no weakness, no chest pain or shortness of breath, no palpitations. She has had the tooth problems as discussed above. SOCIAL HISTORY: She is a single mom, lives in [place], mom lives here in [place]. She is otherwise unemployed. PHYSICAL EXAMINATION: VITAL SIGNS: Temperature 98.3, pulse 73, respirations 20, blood pressure 123/79 and O2 saturation 99%. GENERAL: Young woman with a normal body habitus. HEENT: Eyes: Pupils equal, round and reactive to light. Conjunctivae are clear. Lids are not swollen. Her nares and oropharynx look normal without erythema or lesion. RESPIRATORY: Clear to auscultation. No rub, rale, rhonchi or wheeze. CARDIOVASCULAR: Regular rate and rhythm without murmur or rub. ABDOMEN: Soft, nondistended and nontender. MUSCULOSKELETAL: Neck and back normal. EXTREMITIES: Normal. No clubbing, cyanosis or edema. SKIN: Well perfused, no rash. She does have a healing wound up on her right posterior scalp. No crepitus there and this is just a small wound that seems to be healing well. NEUROLOGIC: She is alert and oriented x3. Cranial nerves II through XII are intact. She has equal strength throughout. Normal sensation to touch. EMERGENCY DEPARTMENT COURSE/MEDICAL DECISION MAKING: Though her dizziness symptoms are improved, they are not completely gone and so I wanted to order and see to make sure she is not anemic, so ordered a CBC. CBC came back normal. Hemoglobin was 14. She asked that I do a urine tox screen. She is followed with that and she said the last time she had Vicodin was on Friday and her urine tox screen did come up back positive for opiates, but no other abnormality. I gave her a copy of that because I think she is going to need it for work. I did discuss with her that she did not lose consciousness with her fall. Her symptoms were unremarkable and then she developed a headache just today, so I think that though she may have a bit of a concussion. I do not think she has any more serious injury and a delay of 3 days like that just seems unlikely for her to start having symptoms now and so I reassured her. She had taken some ibuprofen at home that seemed to work for pain because she just had minimal amount of pain here and did not really need anything for pain here, so I did give her some information about head injury, what to watch out for, what to be concerned about. I want her to continue the ibuprofen and I set her up for discharge. CLINICAL IMPRESSION: Headache and some near-syncope and healing scalp wound. CLINICAL PLAN: She is given information about head injuries as well as headaches. I want her to continue the ibuprofen and she is to follow up with her primary physician as needed or if she has any worsening problems. Electronically signed on 06/01/2009 17:37 by SOLOMON RON MD MT: [id number] Name: STEPHANI MCCORMICK Account: [id number] : 1980 Visit Date: 05/23/2009 Document: [id number] documented in this encounter Plan of Treatment Upcoming Encounters Date Type Specialty Care Team Description 11/15/2021 Office Visit Wound Care Luis Camara DPM [address] [place] [address] (Wo rk) documented as of this encounter Visit Diagnoses Not on filedocumented in this encounter Care Teams Cook Chill Technician Relationship Specialty Start Date End Date None, Bfp PCP - General 03/02/99 04/12/12 documented as of this encounter
--- OUTSIDE RECORDS SUMMARY | 2021-11-10 00:51 | XMS_ITS | Encounter Summary ---
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
--- OUTSIDE RECORDS SUMMARY | 2021-11-10 00:51 | XMS_ITS | Encounter Summary ---
:1980 Author Organization [place] Address [facility] [place] [address] Care Team Providers Name Role Phone None, Bfp Primary Care Provider Unavailable Encounter Details Date Type Department Care Team Description 01/21/2012 Telephone [facility] Nithya Alfredo MD [place] [address] [place] [address] 700 [phone] [place] [address] [phone] Social History Tobacco Use Types Packs/Day Years Used Date Current Every Day Smoker Cigarettes 0.5 10 Smokeless Tobacco: Never Used Alcohol Use Standard Drinks/Week Comments No 0 (1 standard drink = 0.6 oz pure alcoho l) Sex Assigned at Date Recorded Female 01/14/2020 10:57 AM NATURAL 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 Sintia Colon RN RAL SCIENCES DEPARTMENT CHAIR Telephone Encounter - Chapis Diaz - 01/21/2012 2:25 PM CST Faxantoinette Diaz RN RAL SCIENCES DEPARTMENT CHAIR Telephone Encounter - Chapis Diaz - 01/21/2012 1:47 PM CST [employer] faxed buprenorphin 8 mg needs prior auth Id [id number] Insurance [employer]/account executive sales representative--will fax us form we can write urgent on form and they will get to it immediately. Chapis Diaz RN RAL SCIENCES DEPARTMENT CHAIR documented in this encounter Plan of Treatment Upcoming Encounters Date Type Specialty Care Team Description 11/15/2021 Office Visit Wound Care Luis Camara, [place] [address] [place] [address] (Wo rk) documented as of this encounter Visit Diagnoses Not on filedocumented in this encounter Care Teams Napper Tender Relationship Specialty Start Date End Date None, Bfp PCP - General 03/02/99 04/12/12 documented as of this encounter
--- OUTSIDE RECORDS SUMMARY | 2021-11-10 00:51 | XMS_ITS | Encounter Summary ---
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
--- OUTSIDE RECORDS SUMMARY | 2021-11-10 00:51 | XMS_ITS | Encounter Summary ---
:1980 Author Organization [place] Address [facility] [place] [address] Care Team Providers Name Role Phone None, Bfp Primary Care Provider Unavailable Reason for Visit Reason Onset Date Comments Refill Request 01/21/2012 Encounter Details Date Type Department Care Team Description 01/21/2012 Refill [facility] Nithya Alfredo MD Refill Request [place] [address] [place] [address] [address] [phone] [place] [address] [phone] Social History Tobacco Use Types Packs/Day Years Used Date Current Every Day Smoker Cigarettes 0.5 10 Smokeless Tobacco: Never Used Alcohol Use Standard Drinks/Week Comments No 0 (1 standard drink = 0.6 oz pure alcoho l) Sex Assigned at Date Recorded Female 01/14/2020 10:57 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 PA is being submitted to [employer], as medica has denied PA its not the patient's insurance. Sintia Colon RN TER COORDINATOR Telephone Encounter - Sintia Colon - 01/21/2012 10:07 AM CST PA is being requesting for subutex. Patient was on suboxone, is now so needs to be on subutex. PA faxed. Sintia Colon RN TER COORDINATOR documented in this encounter Plan of Treatment Upcoming Encounters Date Type Specialty Care Team Description 11/15/2021 Office Visit Wound Care Luis Camara, [place] [address] [place] [address] (Wo rk) documented as of this encounter Visit Diagnoses Not on filedocumented in this encounter Care Teams Kettle Cook Relationship Specialty Start Date End Date None, Bfp PCP - General 03/02/99 04/12/12 documented as of this encounter
--- OUTSIDE RECORDS SUMMARY | 2021-11-10 00:51 | XMS_ITS | Encounter Summary ---
:1980 Author Organization [place] Address [address] [place] [address]. [place] [address] Care Team Providers Name Role Phone None, Bfp Primary Care Provider Unavailable Reason for Visit Reason Onset Date Comments Medication Request 10/15/2011 Encounter Details Date Type Department Care Team Description 10/15/[address] 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 Telephone Encounter - Marycarmen Spence - 10/16/2011 10:33 AM CDT Left message for patient to return call to triage. Marycarmen Spence RN Telephone Encounter - Edgar Alfredo MD - 10/16/2011 10:26 AM CDT Cannot fill medication until I see her, get a drug screen, etc. It would be the responsibility of her previous prescriber to give her enough medications until she can see me Also, need records from previous MD Telephone Encounter - Victoria Grant - 10/15/2011 1:37 PM CDT 1) Name of Med(s): Subutex 2) Current Dosage (if available): 24mg tabs 3) Pharmacy: [facility] Pt calling- stated she spoke with previously and was told to call and schedule an appointment with him in clinic. She has seen in the past but switched to another clinic. Is unable to go back to previous clinic and would like to see again for her medication care. Pt is taking Subutex and in need of a refill, but not able to get an appt until Oct 23. Pt requesting Dr. Alfredo fill enough medication to take her to Oct 23 appt. Please contact pt at [phone] documented in this encounter Plan of Treatment Upcoming Encounters Date Type Specialty Care Team Description 11/15/2021 Office Visit Wound Care Luis Camara, [place] [address] [place] [address] (Wo rk) documented as of this encounter Visit Diagnoses Not on filedocumented in this encounter Care Teams Bilingual Social Worker Relationship Specialty Start Date End Date None, Bfp PCP - General 03/02/99 04/12/12 documented as of this encounter
--- OUTSIDE RECORDS SUMMARY | 2021-11-10 00:51 | XMS_ITS | Encounter Summary ---
:1980 Author Organization [place] Address [address] [place] [address]. 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 POSTOPERATIVE DIAGNOSIS: Right calcaneus fracture at the calcaneocuboid joint. NAME OF OPERATION: Primary fusion of the right calcaneocuboid joint with bone grafting. SURGEON: Radames Dupree MD. INSURANCE VERIFICATION REP: Carmen Winston Mine Shifter. OPERATIVE PROCEDURE: The patient was brought to the operating room, given a spinal anesthetic. She was placed in the supine position, and the right lower extremity was prepped and draped in a sterile fashion. The right lower extremity was exsanguinated. The tourniquet was inflated. An incision was made longitudinally from the proximal aspect of the fifth metatarsal extending posteriorly to the posterior aspect to the calcaneus. Thiswas carried down through the subcutaneous tissues sharply down to the calcaneus bone, and the soft tissues were elevated from the calcaneus as one flap, the peroneus brevis tendon was identified and retracted out of the way of the fracture. She had a fracture involving the anterior aspect of the calcaneus consistent with her preoperative x-rays and CT scan. There was a portion of the wall which was displaced laterally. This was elevated, exposing the impacted articular surface of the calcaneus at its cuboid articulation. This was elevated back into position and did not appear to have enough bone, still attached to it to allow for any type of fixation. Therefore, it was felt best to proceed with a primary fusion of the calcaneocuboid joint. The cartilage from the both articular surfaces were carefully removed with a rongeur. The articular surface from the calcaneal side of the joint was elevated back into position, and the defect was then filled with cancellous allograft bone. This was impacted into place filling the defect nicely. The lateral wallfragment was then replaced. A standard calcaneal plate was applied over the arthrodesis site. We did trim the posterior aspect of the plate. This was not necessary for fixation, we required more dissection posteriorly in order to place the entire plate on. This was removed with eyefactiverReverse Medical engraving plate maker. The plate was then applied to the calcaneocuboid arthrodesis site. Two 4.0 cancellous screws were placed into the cuboid bone and 3 cortical screws were placed in the calcaneus. Two holes were left unfilled as they were right at the arthrodesis site, and the screws would have been in the bone graft only. The position of the hardware was checked in AP, lateral, and oblique views as well as calcaneal view. This was found to be satisfactory, and the arthrodesis site appeared to be solid. The wound was then irrigated. The tourniquet was deflated, hemostasis was obtained. The incision was closed with 2-0 Vicryl subcutaneous sutures and maryann. A sterile dressing was applied to the incision, and the right lower extremity was placed in well-padded posterior splint. The patient was then awoken from anesthesia and transferred to postanesthesia recovery in satisfactory condition. RADAMES DUPREE MD Dictated by: RADAMES DUPREE MD MT: [email or web address] Document: [id number] LCN: [id number] DSC: 01/16/2005 Name: MR#: : Procedure Date: STEPHANI MCCORMICK [id number] 1980 01/16/2005 OPERATIVE REPORT Page 2 of 2 MATIC SPREADER OPERATOR documented in this encounter Plan of Treatment Upcoming Encounters Date Type Specialty Care Team Description 11/15/2021 Office Visit Wound Care Luis Camara, [place] [address] [place] [phone] (Wo rk) documented as of this encounter Visit Diagnoses Not on filedocumented in this encounter Care Teams Semiconductor Processor Relationship Specialty Start Date End Date None, Bfp PCP - General 03/02/99 04/12/12 documented as of this encounter
--- OUTSIDE RECORDS SUMMARY | 2021-11-10 00:51 | XMS_ITS | Encounter Summary ---
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 US ABDOMEN LIMITED Routine 04/11/2010 12:39 AM Re sults for this COMMERCIAL LENDING ASSISTANT procedure are i n the results section. documented in this encounter Results US OB 14 + weeks single or first gestation (04/11/2010 12:40 AM COMMERCIAL LENDING ASSISTANT) Specimen (Source) Anatomical Collection Method Collection Time Re ceived Time Location / / Volume Laterality 04/11/2010 12:40 AM COMMERCIAL LENDING ASSISTANT Impressions RADIOLOGY RESULTS - 04/11/2010 5:[address] ULTRASOUND OBSTETRIC SECOND TO THIRD TRI MESTER ??Apr 11, 2010 12:40 AM HISTORY: Abdominal pain, . COMPARISON: None. FINDINGS: There is a single live intraut erine of approximately 16 weeks 0 days gestation with an EDC of 09/26/2010 based on the measurements. This correlat es with the estimated gestational age of 16 weeks 1 day and ED C of 09/25/2010 as determined by LMP. heart rate is 163 beats per m inute. There is a normal amount of amniotic fluid. anatomic detail is limited due to early gestational age with no gross abno rmality seen. Placenta is posterior with no evidence for placenta previa. No subchorionic hemorrhage is identified. Good mov ement is seen. The bilateral ovaries appear within normal limits. Measured Parameters: BPD: 34 mm = 16 weeks 4 days. HC: 124 mm = 16 weeks 2 days. AC: 96 mm = 15 weeks 6 days. FL: 18 mm = 15 weeks 2 days. IMPRESSION: Early single live intrauteri ne of approximately 16 weeks 0 days gestation and EDC of 09/17 as determined by this ultrasound. No evidence for subchorionic hemorrhage. Etiology for patient's abdominal pain is not seen. Preliminary results were faxed to the inical service by Dr. Leon on 04/11/2010 0050 hours. Breanna Main MD IMG US ORDERABLES Performing Organization Address City/State/ZIP Code Phon e Number RADIOLOGY RESULTS US Abdomen Limited* (04/11/2010 12:39 AM COMMERCIAL LENDING ASSISTANT) Specimen (Source) Anatomical Collection Method Collection Time Re ceived Time Location / / Volume Laterality 04/11/2010 12:39 AM COMMERCIAL LENDING ASSISTANT Impressions RADIOLOGY RESULTS - 04/11/2010 8:[address] ULTRASOUND ABDOMEN LIMITED April 11, 2010 12:39:00 AM HISTORY: Right upper quadrant pain. COMPARISON: None. FINDINGS: Visualized portions of the pinon creatic neck appear normal, most of the pancreas is nonvisualized du e to overlying bowel gas. Normal appearing liver and right kidney. Right kidney measures 10.9 cm in length. The gallbladder appears musa l. No gallstones or gallbladder wall thickening. 4 mm common hepatic duct. IMPRESSION: Normal right upper quadrant ultrasound. Breanna Main MD IMG US ORDERABLES Performing Organization Address City/State/ZIP Code Phon e Number RADIOLOGY RESULTS documented in this encounter Visit Diagnoses Not on filedocumented in this encounter Care Teams Checkering Machine Operator Relationship Specialty Start Date End Date None, Bfp PCP - General 03/02/99 04/12/12 documented as of this encounter
--- OUTSIDE RECORDS SUMMARY | 2021-11-10 00:51 | XMS_ITS | Encounter Summary ---
:1980 Author Organization [place] Address [facility] [place] [address] Care Team Providers Name Role Phone None, Bfp Primary Care Provider Unavailable Reason for Visit Reason Onset Date Comments Medication Request 11/04/2011 Encounter Details Date Type Department Care Team Description 11/04/2011 Telephone [facility] Edgar Alfredo Ma rk, Medication Request [place] [address] [place] [address] [place] [address] [address] [place] [phone] (Wo rk) Social History Tobacco Use Types Packs/Day Years Used Date Current Every Day Smoker Cigarettes 0.5 10 Smokeless Tobacco: Never Used Alcohol Use Standard Drinks/Week Comments No 0 (1 standard drink = 0.6 oz pure alcoho l) Sex Assigned at Date Recorded Female 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 Telephone Encounter - Edgar Alfredo MD - 11/04/2011 1:34 PM CDT Ordered 6 8 mg strips Last warning - needs to take medications as directed appointment 3 days Telephone Encounter - Madonna Cody - 11/04/2011 11:20 AM CDT Said she has an appointment with you on . You started her out at 12 mg of suboxone and she had been on 24 mg and is running out of her suboxone and will not have enough until . She can be reached at [phone]. documented in this encounter Plan of Treatment Upcoming Encounters Date Type Specialty Care Team Description 11/15/2021 Office Visit Wound Care Luis Camara DPM [address] [place] [phone] (Wo rk) documented as of this encounter Visit Diagnoses Diagnosis Opiate dependence (H) - Primary Opioid type dependence, unspecified documented in this encounter Care Teams Gasoline Attendant Relationship Specialty Start Date End Date None, Bfp PCP - General 03/02/99 04/12/12 documented as of this encounter
--- OUTSIDE RECORDS SUMMARY | 2021-11-10 00:51 | XMS_ITS | Encounter Summary ---
:1980 Author Organization [place] Address [address] [facility] [place] [address] Care Team Providers Name Role Phone None, Bfp Primary Care Provider Unavailable Encounter Details Date Type Department Care Team Description 01/05/2005 Historic Results [facility] Shukri Reddy MD Emergency Department [address] [facility] [address] [place] [address] [place] [phone] Social History Tobacco Use Types Packs/Day Years Used Date Never Assessed Sex Assigned at Date Recorded Female 01/14/2020 10:57 AM ALUMNI RELATIONS OFFICER documented as of this encounter Plan of Treatment Upcoming Encounters Date Type Specialty Care Team Description 11/15/2021 Office Visit Wound Care Luis Camara DPM [address] [place], [place] [phone] (Wo rk) documented as of this encounter Procedures Procedure Name Priority Date/Time Associated Comments Diagnosis UA MACROSCOPIC WITH STAT 01/05/2005 8:45 PM Re sults for this REFLEX TO MICRO ALUMNI RELATIONS OFFICER procedure ar e in the results section. URINE MICROSCOPIC Routine 01/05/2005 8:45 PM Resu lts for this EXAM ALUMNI RELATIONS OFFICER procedure are i n the results section. DRUG ABUSE SCREEN 8 STAT 01/05/2005 8:45 PM Re sults for this URINE (UR) ALUMNI RELATIONS OFFICER procedure are i n the results section. documented in this encounter Results (ABNORMAL) UA macroscopic with reflex to micro (01/05/2005 8:45 PM ALUMNI RELATIONS OFFICER) [facility] Method Time Signature Source Midstream MISYS Urine Color Urine Yellow MISYS Appearance Urine Clear MISYS Glucose Urine Negative NEG mg/dL MISYS Bilirubin Urine Negative NEG MISYS Ketones Urine Negative NEG mg/dL MISYS Specific Edison 1.034 1.003 - MISYS Urine 1.035 Blood Urine Negative NEG MISYS pH Urine 6.0 5.0 - 7.0 MISYS pH Protein Albumin Trace (A) NEG mg/dL MISYS Urine Urobilinogen 0.2 0.2 - 1.0 MISYS Urine EU/dL Nitrite Urine Negative NEG MISYS Leukocyte Negative NEG MISYS Esterase Urine Specimen Anatomical Collection Method Collection Time Receive d Time (Source) Location / / Volume Laterality 01/05/2005 8:45 PM 5 8:45 ALUMNI RELATIONS OFFICER PM ALUMNI RELATIONS OFFICER Shkuri Reddy MD LAB - URINE ORDERABLES Performing Organization Address [facility] Phon e Number MISYS (ABNORMAL) Drug abuse screen 8 urine (UR) (01/05/2005 8:45 PM ALUMNI RELATIONS OFFICER) [facility] Method Time Signature Amphetamine Qual Negative NEG MISYS Urine Ethanol Qual Urine Negative NEG MISYS Opiates Positive (A) NEG MISYS Qualitative Urine PCP Qual Urine Negative NEG MISYS Benzodiazepine Negative NEG MISYS Qual Urine Barbiturates Qual Negative NEG MISYS Urine Cocaine Qual Urine Positive (A) NEG MISYS Cannabinoids Qual Negative NEG MISYS Urine Specimen Anatomical Collection Method Collection Time Receive d Time (Source) Location / / Volume Laterality 01/05/2005 8:45 PM 5 8:45 ALUMNI RELATIONS OFFICER PM ALUMNI RELATIONS OFFICER Shukri Reddy MD LAB - URINE ORDERABLES Performing Organization Address City/State/ZIP Code Phon e Number MISYS (ABNORMAL) Microscopic exam urine (01/05/2005 8:45 PM ALUMNI RELATIONS OFFICER) [facility] Method Time Signature WBC Urine O - 2 0 - 2 MISYS /HPF RBC Urine O - 2 0 - 2 MISYS /HPF Squamous Few FEW /LPF MISYS Epithelial /LPF Urine Bacteria Urine Few (A) NEG /HPF MISYS Mucous Urine Present (A) NEG /LPF MISYS Specimen Anatomical Collection Method Collection Time Receive d Time (Source) Location / / Volume Laterality 01/05/2005 8:45 PM 5 9:00 ALUMNI RELATIONS OFFICER PM ALUMNI RELATIONS OFFICER Shukri Reddy MD LAB - URINE ORDERABLES Performing Organization Address City/State/ZIP Code Phon e Number MISYS documented in this encounter Visit Diagnoses Not on filedocumented in this encounter Care Teams Timber Girdler Relationship Specialty Start Date End Date None, Bfp PCP - General 03/02/99 04/12/12 documented as of this encounter
--- OUTSIDE RECORDS SUMMARY | 2021-11-10 00:51 | XMS_ITS | Encounter Summary ---
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 No Known Allergies Basic Medication Information - History taken from:: Patient Medications (#1-10) - Medication: Zoloft - Medication: Ibuprofen - Medication: Mult. vit. - Medication: Vit. D - Medication: Calcium Signatures HOMER MCCALL (GENARO)[Signed 20:04] Authored: Allergies, Basic Medication Information, Medications (#1-10) documented in this encounter Plan of Treatment Upcoming Encounters Date Type Specialty Care Team Description 11/15/2021 Office Visit Wound Care Luis Camara DPM [address] [place], [place] [phone] (Wo rk) documented as of this encounter Visit Diagnoses Not on filedocumented in this encounter Care Teams Registered Dietician Relationship Specialty Start Date End Date None, Bfp PCP - General 03/02/99 04/12/12 documented as of this encounter
--- OUTSIDE RECORDS SUMMARY | 2021-11-10 00:51 | XMS_ITS | Encounter Summary ---
:1980 Author Organization [place] Address [address] [place] [address] Care Team Providers Name Role Phone None, Bfp Primary Care Provider Unavailable Encounter Details Date Type Department Care Team Description 04/11/[address] 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 o. female who is 16 weeks and presents at 2135 to the ED for evaluation of abdominal pain. The patient states she began to experience abdominal pain around 1730 this evening. She describes this moderate pain as, a sharp, gassy pain...like when you have to go to the bathroom. She notes that, shortly after onset of this pain, she began crying and hyperventilating and shortly after began to feel nauseous and became sweaty. The patient did not vomit and notes these associated symptoms relieved once she calmed down. Here, the patient denies any associated changes in bowel or bladder function as well as any vaginal bleeding or vaginal discharge. She notes her moderateabdominal pain is aggravated with palpation ofthe rightabdomen. She denies onset of her pain with consumption of fatty foods. She also complains of a non-productive cough and mild congestions but denies any associated fever, chills or malaise. Of note, the patient's regular BUSINESS SERVICES SALES AGENT is a Dr. White. Medications - Medication: Cymbalta - Medication: Buspar - Medication: Tylenol Cold - Medication: 'Bupontifin' Allergies No Known Allergies Past Medical/Family History - PMH is positive for: (All Vaginal Delivery) Social History - Is negative for Tobacco use, Illicit drug use, Alcohol use Review of Systems - - All other systems negative except - General Negative for fever, Negative for chills, Negative for malaise/fatigue, Positive for diaphoresis - HENT Positive for congestion - Respiratory Positive for cough, Negative for sputum production - Gastrointestinal Positive for nausea, Negative for vomiting, Positive for abdominal pain, Negative for diarrhea, Negative for constipation, Negative for blood in stool, Negative for melena - Genitourinary Negative for dysuria, Negative for urgency, Negative for frequency, Negative for hematuria Vital Signs-Triage Temp F: 97.7 degrees F Temp C: 36.5 degrees C Temp site: Oral Resp Rate: 18 Pulse Oximetry: 99 Cuff Systolic BP mmH Cuff Diastolic BP mmH Physical Exam - Constitutional Young woman sitting upright on a stretcher. - HENT oropharynx clear and moist, nose normal - Eyes pupils equal, round, and reactive to light, conjunctiva normal, extraocular movements normal, no scleral icterus present - Cardiovascular normal rate, regular rhythm, heart sounds normal, no murmur present, no rub present, no gallop present - Pul/Chest Wall effort normal, breath sounds normal, no respiratory distress present, no wheezes present, no rales present, no chest tenderness present - Abdominal soft, no rebound present, no guarding present, no mass present, Abdominal distension appropriate for . RUQ pain to deep palpation, referred pain to RLQ, Mild discomfort on deep palpation to the right mid-abdomen. - Pelvic Exam: Externa genitalia WNL, Speculum exam shows closed cervical OS with purplish discoloration to Cervix. Small amount of white frothy mucosal discharge, Bimanual examination shows slightly elongated cervix but no cervical motion tenderness or adnexal tenderness or fullness. - Musculoskeletal normal range of motion, no deformity present, no edema present, no tenderness present, No CVA tenderness. - Neurologic alert, oriented x3, Normal speech, Appropriately follows all commands and answers all questions. - Skin warm, dry, no erythema present, no rash present, normal color present - Psychiatric affect normal Laboratory information - -: CBC: Neutrophils 79.5 high, Lymphocytes 14.2 low, o/w WNL (WBC 9.9, HGB 12.3, Platelet Count 156) BMP: WNL (Creatinine 0.59)Alkaline Phosphatase: 55 ALT: 41 AST: 31 Bilirubin Total: 0.4 Wet Prep: Moderate PMNs seen, No Yeast seen, No Trichomonas seen, Clue Cells seen, o/w None Seen UA: Protein Albumin 10, Leukocyte Esterase trace, WBC Urine 4 high, Bacteria many, Squamous Epithelial 15 high, Mucus present, o/w Negative UC: Pending Chlamydia trachomatis PCR: Pending N Gonorrhea PCR: Pending Diagnostic information - -: US OB: Single live IUP measuring 16 weeks 0 days. No abnormalities, per radiology. US RUQ: Normal. No gallstone or biliary dilation, per radiology. ED Course: Interventions/Consultations/Procedures - -: Interventions: Tylenol 650 mg PO NS 1 L IV ED Course: The nurse was able to get a heart rate of [address] of Doppler. IV inserted and blood drawn. The patient was placed on continuous blood pressure monitoring and pulse oximetry. The patient provided a urine sample here in the emergency department. This was sent for laboratory testing, findings above. The patient had a pelvic exam performed here in the emergency department, which she tolerated without difficulty. This was done in the presence of a female barge loader. The patient was sent for a US Abdomen Limited and US OB 2-3 Trimester while in the emergency department, findings above. Rechecked the patient, findings and plan explained to the patient and significant other. Patient discharged home in care of significant other, status improved, with instructions regarding supportive care, medications, and reasons to return as well as the importance of close follow-up were reviewed. Medical Decision Making - -: The patient is a 29 year old 16 week- female who presents to the ED with lower abdominal pain of unclear etiology. I did consider pre-term labor. However, this seems unlikely and with no vaginal bleeding, also threatened miscarriage seems unlikely. This is especially true in light of a normal ultrasound and heart tones and movement. I also considered urine tract pathology and she does have a mildly infected urine. However, with all the squamous epithelial cells, it is difficult to differentiate this from contamination. Urine culture is pending. She will be treated regardless because of the . She also has evidence of bacterial vaginosis on Wet Prep from pelvic exam, which will be treated. Other etiologies did include atypical presentation for acute appendicitis, although this seems unlikely, unless very early in process. She has no leukocytosis, no fever and does not have any focal right lower quadrant tenderness. Initially in her exam, she was tender in her right upper quadrant, and therefore an ultrasound was obtained to look at her gallbladder for evidence of gallstones and there are none. This, in combination with her normal LFTs and Bilirubin and what would be an atypical presentation for a cholecystitis, makes that diagnosis unlikely as well. It could be colicy colon/gassy pain as well and this seems most likely as a diffuse in nature and seems to be moving on repeat abdominal assessments. This could also be uterine ligament stretching pain, although the patient notes she has had that before and this feels different. At this point, the patient's symptoms are well controlled here in the ED and she is taking PO without difficulty. At this point, I feel comfortable discharging her home. She does need to follow up with her OB in 2 days and is agreeable with this plan. She is told to use Macrobid as prescribed for a 7 day course as well as Flagyl gel intravaginally. She is told to return to the ED, should she experience fever, - .: uncontrolled pain, uncontrolled vomiting or vaginal bleeding. She is told to otherwise drink plenty of fluids and rest. She is agreeable with this plan and is discharged home in improved condition with her significant other. Diagnosis - -: 1. Abdominal pain of unclear etiology. 2. Live intrauterine . 3. Urinary tract infection. 4. Bacterial vaginosis. Scribe Disclosure I, Gabino Bal ,am serving as a scribe to document services personally performed by Dr. Childers, based on my observations and the provider's statements to me. Electronically signed on 04/12/2010 05:49 by ANDREI CHILDERS MD As dictated by GABINO BAL MT: Name: STEPHANI MCCORMICK MRN: [id number] Account: [id number] : 1980 Visit Date: 04/11/2010 Document: [id number] STANT PROFESSOR OF MATHEMATICS documented in this encounter Plan of Treatment Upcoming Encounters Date Type Specialty Care Team Description 11/15/2021 Office Visit Wound Care Luis Camara, [place] [address] [place] [phone] (Wo rk) documented as of this encounter Visit Diagnoses Not on filedocumented in this encounter Care Teams Cash Register Operator Relationship Specialty Start Date End Date None, Bfp PCP - General 03/02/99 04/12/12 documented as of this encounter
--- OUTSIDE RECORDS SUMMARY | 2021-11-10 00:51 | XMS_ITS | Encounter Summary ---
:1980 Author Organization [place] Address [address] [facility] [address] Care Team Providers Name Role Phone None, Bfp Primary Care Provider Unavailable Reason for Visit Reason Comments RECHECK Encounter Details Date Type Department Care Team Description 12/05/2011 Office Visit [facility] Edgar Alfredo pendence (H) Clinic Ashly Gauthier MD (Primary Dx) [address] [facility] [address] [place] [address] [address] [place] [phone] Social History Tobacco Use Types Packs/Day Years Used Date Current Every Day Smoker Cigarettes 0.5 10 Smokeless Tobacco: Never Used Alcohol Use Standard Drinks/Week Comments No 0 (1 standard drink = 0.6 oz pure alcoho l) Sex Assigned at Date Recorded Female 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 documented as of this encounter Last Filed Vital Signs Vital Sign Reading Time Taken Comments Blood Pressure 108/58 12/05/2011 2:02 PM CDT Pulse 90 12/05/2011 1:43 PM CDT Temperature - - Respiratory Rate - - Oxygen Saturation 94% 12/05/2011 1:43 PM CDT Inhaled Oxygen Concentration - - Weight 77.6 kg (171 lb) 12/05/2011 1:43 PM CDT Height 166.4 cm (5' 5.5) 12/05/2011 1:43 PM CDT Body Mass Index 28.02 12/05/2011 1:43 PM CDT documented in this encounter Progress Notes Edgar Alfredo MD - 12/05/2011 3:57 PM CDT Stephani Parker is here for [...] visit Drug Screen: patient willing but screen unnecessary; WILL GET ONE NEXT VISIT Suboxone Dose: adequate Side Effects: none Plan for Suboxone for next period: no change Questions answered: yes Issues discussed: stress; problems with fiance; other problems Next visit: 1 month 20 minutes were spent with patient with more than 50% of time spent in counseling and coordination of care; Discussed with patient many issues of addiction, relapse, and establishing a solid recovery program. documented in this encounter Nursing Notes 12/05/2011 1:15 PM CDT >> FERN MARINELLI Zoe Dec 05, 2011 2:05 PM Script for suboxone was faxed to the [facility] >> GIOVANNI HART [facility] Dec 05, 2011 1:45 PM Patient presents with: RECHECK Initial BP 144/58 Pulse 90 Ht 5' 5.5 (1.664 m) Wt 171 lb (77.565 kg) BMI 28.02 kg/m2 [id number]% Estimated Body mass index is 28.02 kg/(m^2) as calculated from the following: Height as of this encounter: 5' 5.5(1.664 m). Weight as of this encounter: 171 lb(77.565 kg).. BP completed using cuff size: regular Giovanni Hart MA documented in this encounter Plan of Treatment Upcoming Encounters Date Type Specialty Care Team Description 11/15/2021 Office Visit Wound Care Luis Camara, [place] [address] [place] [address] (Wo rk) documented as of this encounter Visit Diagnoses Diagnosis Opiate dependence (H) - Primary Opioid type dependence, unspecified documented in this encounter Care Teams Fbi Profiler Relationship Specialty Start Date End Date None, Bfp PCP - General 03/02/99 04/12/12 documented as of this encounter
--- OUTSIDE RECORDS SUMMARY | 2021-11-10 00:51 | XMS_ITS | Encounter Summary ---
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
--- OUTSIDE RECORDS SUMMARY | 2021-11-10 00:51 | XMS_ITS | Encounter Summary ---
:1980 Author Organization [place] Address [facility] [place] [address] Care Team Providers Name Role Phone None, Bfp Primary Care Provider Unavailable Reason for Visit Reason Onset Date Comments RECHECK please ask about rec ent PAP date Erroneous encounter-disregard 02/07/2012 Encounter Details Date Type Department Care Team Description 02/06/2012 Office Visit [facility] Edgar Alfredo [facility] Ashly Gauthier MD ENCOUNTER--DISREGARD [address] [place] [address] [place] [address] (Primary Dx) [address] [place] [address] [phone] Social History Tobacco Use Types Packs/Day Years Used Date Current Every Day Smoker Cigarettes 0.5 10 Smokeless Tobacco: Never Used Alcohol Use Standard Drinks/Week Comments No 0 (1 standard drink = 0.6 oz pure alcoho l) Sex Assigned at Date Recorded Female 01/14/2020 10:57 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 Please disregard. IN WINDER TENDER documented in this encounter Plan of Treatment Upcoming Encounters Date Type Specialty Care Team Description 11/15/2021 Office Visit Wound Care Luis Camara, [place] [address] [place] [address] (Wo rk) documented as of this encounter Visit Diagnoses Diagnosis ERRONEOUS ENCOUNTER--DISREGARD - Primary documented in this encounter Care Teams Curriculum Specialist Relationship Specialty Start Date End Date None, Bfp PCP - General 03/02/99 04/12/12 documented as of this encounter
--- OUTSIDE RECORDS SUMMARY | 2021-11-10 00:51 | XMS_ITS | Encounter Summary ---
:1980 Author Organization [place] Address [address] [place] [address] Care Team Providers Name Role Phone None, Bfp Primary Care Provider Unavailable Reason for Visit Reason Onset Date Comments Refill Request 02/04/2012 Encounter Details Date Type Department Care Team Description 02/04/2012 Refill [facility] Nithya Carbone MD Refill Request [place] [address] [address] [place] [address] [address] [phone] [place] [phone] Social History Tobacco Use Types Packs/Day Years Used Date Current Every Day Smoker Cigarettes 0.5 10 Smokeless Tobacco: Never Used Alcohol Use Standard Drinks/Week Comments No 0 (1 standard drink = 0.6 oz pure alcoho l) Sex Assigned at Date Recorded Female 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 Tried to call the number listed below, mailbox full. Sintia Colon RN VISION REPAIRER Telephone Encounter - Tigist Fraga - 02/05/2012 12:41 PM CST Pt calling re rx, informed pt of refill, pt has appt tomorrow 02-06-12, pt would like to use [facility], , fax [phone]. VISION REPAIRER Telephone Encounter - Edgar Carbone MD - 02/05/2012 12:17 PM CST Refilled Needs appointment Need pharm # VISION REPAIRER Telephone Encounter - Victoria Grant - 02/05/2012 10:06 AM CST Pt requesting we send script to [facility] in [place] [address] Please call pt at [phone] with any additional concerns/questions. Pt has been out of medication for 2 days. VISION REPAIRER Telephone Encounter - Chapis Diaz - 02/04/2012 2:52 PM CST Not on nursing protocol, unable to fill medication. Please fill if appropriate. Need pharmacy info-dr carbone not in office the rest of today or tomorrow. Chapis Diaz, RN VISION REPAIRER Telephone Encounter - April Mccauley - 02/04/2012 2:21 PM CST Patient called in requesting a refill on her SUBUTEX prescription, patient can be reached via voicemail at phone number [phone] (home phone is voicemail only, please leave detailed voicemail here for pt to return call). VISION REPAIRER documented in this encounter Plan of Treatment Upcoming Encounters Date Type Specialty Care Team Description 11/15/2021 Office Visit Wound Care Luis Camara, [place] [address] [place] [address] (Wo rk) documented as of this encounter Visit Diagnoses Diagnosis Opiate dependence (H) - Primary Opioid type dependence, unspecified documented in this encounter Care Teams Gauger Delivery Relationship Specialty Start Date End Date None, Bfp PCP - General 03/02/99 04/12/12 documented as of this encounter
--- OUTSIDE RECORDS SUMMARY | 2021-11-10 00:51 | XMS_ITS | Encounter Summary ---
:1980 Author Organization [place] Address [address] [facility] 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 documented in this encounter Results SONO COMPLETE (01/08/2005 12:11 PM DISABILITY ATTORNEY) Specimen (Source) Anatomical Collection Method Collection Time Re ceived Time Location / / Volume Laterality 01/08/2005 12:11 PM DISABILITY ATTORNEY Impressions RADIOLOGY RESULTS - 01/12/2005 7:[address] ?? OBSTETRIC ULTRASOUND, SECOND/THIRD TRIME STER ?? CLINICAL HISTORY: ??The patient is withd rawing. ?? survey. ?? FINDINGS: ??Single living fetus seen in longitudinal lie and cephalic presentation. ??Cardiac activity 130 cici ts per minute and regular. ?? Placenta anterior without evidence of pr evia or abruption. ??Amniotic fluid volume normal with four-quadrant i ndex of 13. ??Umbilical artery hlkfiszb-bn-lwawxookn ratio of 4.2 to 1, which is normal. ? Biparietal diameter = 67.6 mm, consisten t with 27 weeks 2 days Head circumference = 260 mm, consistent with 28 weeks 2 days Abdominal circumference = 226, consisten t with 27 weeks 0 days Femoral length = 50 mm, consistent with 26 weeks 5 days ?? weight calculated at approximately 1006 grams. ? anatomy, including head, spine, st omach, kidneys, bladder, three-vessel cord, cord insertion, four- chambered heart, anterior abdominal wall, diaphragm, and fet al movement unremarkable. ?? Maternal cervix 3.1 cm in length. ?? IMPRESSION: ??Single living fetus in jerilyn gitudinal lie and cephalic presentation measuring approximately 27 weeks 3 days gestational age, plus/minus 2-1/2 weeks. Edgar Alfredo MD SPECIAL IMAGING STUDIES Performing Organization Address City/State/ZIP Code Phon e Number RADIOLOGY RESULTS documented in this encounter Visit Diagnoses Not on filedocumented in this encounter Care Teams Coyote Hunter Relationship Specialty Start Date End Date None, Bfp PCP - General 03/02/99 04/12/12 documented as of this encounter
--- OUTSIDE RECORDS SUMMARY | 2021-11-10 00:51 | XMS_ITS | Encounter Summary ---
:1980 Author Organization [place] Address [address] [facility] [place] [address] Care Team Providers Name Role Phone None, Bfp Primary Care Provider Unavailable Encounter Details Date Type Department Care Team Description 11/30/2011 Abstract [facility] Edgar Alfredo [facility] Historical Records: [facility] [place] Notes [address] [facility] [address] [place] [phone] (Wo rk) Social History Tobacco Use Types Packs/Day Years Used Date Current Every Day Smoker Cigarettes 0.5 10 Smokeless Tobacco: Never Used Alcohol Use Standard Drinks/Week Comments No 0 (1 standard drink = 0.6 oz pure alcoho l) Sex Assigned at Date Recorded Female 01/14/2020 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 Provider Abstract IMG CT ORDERABLES documented in this encounter Visit Diagnoses Not on filedocumented in this encounter Care Teams Chemical Plant Manager Relationship Specialty Start Date End Date None, Bfp PCP - General 03/02/99 04/12/12 documented as of this encounter
--- OUTSIDE RECORDS SUMMARY | 2021-11-10 00:51 | XMS_ITS | Encounter Summary ---
:1980 Author Organization [place] Address [address] [place] [address]. 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 HISTORY OF PRESENT ILLNESS: The patient is a 23-year-old female who presents to the Emergency Department with ongoing right flank pain and urinary frequency. The patient was diagnosed four or five days ago with a UTI and early pyelonephritis, was initially started on Ciprofloxacin, but was found to have a culture report that showed that organism was resistant to Ciprofloxacin. She therefore was switched to Macrodantin as the sensitivity shows that the patient's E coli growing in the patient's urine was sensitive to Macrodantin. The patient, however, has been on Macrodantin now for four days, and continues to have ongoing symptoms, and so she is concerned that the infection has not cleared up. PAST MEDICAL HISTORY: Unremarkable other than the ongoing UTI and pyelonephritis. MEDICATIONS: Macrobid, Ibuprofen. ALLERGIES: NKDA. SOCIAL HISTORY: The patient is single, lives at home. She is here with a friend. FAMILY HISTORY: Noncontributory. REVIEW OF SYSTEMS: Positive for those symptoms mentioned in the HPI. All other systems are negative. PHYSICAL EXAMINATION: The patient is an alert, well nourished, well developed female. Blood pressure is 113/60, pulse 85 and regular, respirations 16 and nonlabored, temperature 97.1 orally, O2 sats of 97% on room air. HEENT is normocephalic and atraumatic. The face is symmetric and nontender. Mucous membranes are moist. The neck is supple, full active range of motion, nontender. No lymphadenopathy. Lungs are clear to auscultation bilaterally. Abdomen is flat and soft, nontender. Spine is straight and nontender. She does have some right flank tenderness. No left flank tenderness. The skin is pink, warm and dry without any rashes, lesions or erythema. EMERGENCY DEPARTMENT COURSE: A urinalysis was obtained which did show an ongoing UTI with positive nitrites, positive leukocyte esterase, and 50 to 100 white cells per high power field, with many bacteria. I reviewed the culture sensitivities on the patient's organism from her previous visit on 09-21-03 and shows the organism to be most sensitive to Tobramycin, Gentamicin, and ceftriaxone. Very mildly sensitive to both nitrofurantoin and Augmentin. It was therefore decided to give the patient a shot of IM ceftriaxone here in the Emergency Department, and then increase her nitrofurantoin dose from 100 mg b.i.d. to 100 mg q.i.d. The patient was therefore given an IM shot of 1 gm of Rocephin and readied for discharge home. Other urine results on the patient here today showed urine test to be negative. The patient did request a urine drug screen which was negative for all tested substances. DIAGNOSIS: Pyelonephritis. DISPOSITION: The patient will be discharged home on increased dose of Macrodantin. She will follow up with her primary care physician in three to five days for a repeat urinalysis. [id number] SANTO DELONG MD [place]: Document: [id number] [place], [place] Name: STEPHANI MCCORMICK EMERGENCY ROOM ENCOUNTER Page 2 of 2 LCN: JOSEPH DSC: 09/29/2003 [place], [place] Name: MR#: : Admit Date: STEPHANI MCCORMICK -66 1980 09/29/2003 Doctor: SANTO DELONG MD EMERGENCY ROOM ENCOUNTER Page 1 of 2 documented in this encounter Plan of Treatment Upcoming Encounters Date Type Specialty Care Team Description 11/15/2021 Office Visit Wound Care Luis Camara DPM [address] [place] [phone] (Wo rk) documented as of this encounter Visit Diagnoses Not on filedocumented in this encounter Care Teams Yardage Caller Relationship Specialty Start Date End Date None, Bfp PCP - General 03/02/99 04/12/12 documented as of this encounter
--- OUTSIDE RECORDS SUMMARY | 2021-11-10 00:51 | XMS_ITS | Encounter Summary ---
:1980 Author Organization [place] Address [facility] [place] [address] Care Team Providers Name Role Phone None, Bfp Primary Care Provider Unavailable Reason for Visit Reason Onset Date Comments Refill Request 01/20/2012 Encounter Details Date Type Department Care Team Description 01/20/2012 Refill [facility] Nithya Alfredo MD Refill Request [place] [address] [place] [address] [address] [phone] [place] [phone] Social History Tobacco Use Types Packs/Day Years Used Date Current Every Day Smoker Cigarettes 0.5 10 Smokeless Tobacco: Never Used Alcohol Use Standard Drinks/Week Comments No 0 (1 standard drink = 0.6 oz pure alcoho l) Sex Assigned at Date Recorded Female 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 Marycarmen Spence RN N RESOURCES DEPARTMENT SUPERVISOR Telephone Encounter - Violeta Soto - 01/20/2012 4:56 PM CST Patient called - Please refill prescription to the [facility] on [place] [address]. Their number is [phone]. N RESOURCES DEPARTMENT SUPERVISOR Telephone Encounter - Sintia Colon - 01/20/2012 4:01 PM CST There are two different [facility] in [place]- patient was called to clarify which one she wants the medication sent to. Patient mother picked up the phone and stated she didn't know her number but she would try to contact patient to have her call the clinic. Until we hear from patient, the scripts are sitting in the top drawer of [employer]. Sintia Colon RN N RESOURCES DEPARTMENT SUPERVISOR Telephone Encounter - Edgar Alfredo MD - 01/20/2012 3:56 PM CST Ordered Need pharm info In fax box N RESOURCES DEPARTMENT SUPERVISOR Telephone Encounter - Tigist Fraga - 01/20/2012 3:43 PM CST Pt calling, states she is out of subutex, 8 mg and 2 mg as was only given 15 days worth at last refill. Before ending conversation, pt also stated she was out of Wellbutrin. [facility] [place]. Caller states she can be reached or messages left at [phone] which is her mother's phone number. Aware Dr Alfredo not scheduled in clinic this afternoon. N RESOURCES DEPARTMENT SUPERVISOR documented in this encounter Plan of Treatment Upcoming Encounters Date Type Specialty Care Team Description 11/15/2021 Office Visit Wound Care Luis Camara DPM [address] [place] [address] (Wo rk) documented as of this encounter Visit Diagnoses Diagnosis Opiate dependence (H) - Primary Opioid type dependence, unspecified Moderate major depression (H) Major depressive disorder, single episod e, moderate documented in this encounter Care Teams Nursing Project Coordinator Relationship Specialty Start Date End Date None, Bfp PCP - General 03/02/99 2 documented as of this encounter
--- OUTSIDE RECORDS SUMMARY | 2021-11-10 00:51 | XMS_ITS | Encounter Summary ---
:1980 Author Organization [place] Address [facility] [place] [address] Care Team Providers Name Role Phone None, Bfp Primary Care Provider Unavailable Encounter Details Date Type Department Care Team Description 01/07/2005 Results Only [facility] molly Hdez MD [facility] Radiology Results [facility] [address] [place], [place] [phone] (Wo rk) Social History Tobacco Use Types Packs/Day Years Used Date Never Assessed Sex Assigned at Date Recorded Female 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 documented in this encounter Results CT SCAN LEG (01/07/2005 9:00 PM UTILITY ACCOUNTS DIRECTOR) Specimen (Source) Anatomical Collection Method Collection Time Re ceived Time Location / / Volume Laterality 01/07/2005 9:00 PM UTILITY ACCOUNTS DIRECTOR Impressions RADIOLOGY RESULTS - 01/08/2005 1:[address] ? CT STUDY OF RIGHT LOWER EXTREMITY TO SHEFALI LUATE CALCANEUS, 01/07/05 ?? CLINICAL HISTORY: Patient 6-1/2 months p prabhjot with history of trauma to the foot. ??The patient double shielded for this exam. ?? COMPARISON: Review of plain films dated 01/06/05 demonstrates subtle fractures dorsally distal talus, navicul ar and base 1st metatarsal, as well as fracture distal lateral calca neus. ?? TECHNIQUE: CT study done with 1.25 mm cu ts with reconstructions. ?? FINDINGS: Images reveal a fracture of th e distal calcaneus involving the articular surface of the cuneiform w ith fragment is depressed posteriorly approximately 6 mm of that a rticular surface. ??This is a comminuted fracture. ??The calcaneal tub erosity and subtalar joints are unremarkable. ??There is an oblique fracture approximately 1 cm posterior to the distal aspect of the ca lcaneus where it articulates with the talus. ??This does not involve the articular surface. ? There is a comminuted fracture of the ta rsal navicular involving the caudal or plantar aspect where it articu lates with the cuboid, as well as a tiny avulsion fracture dorsall y. ?? No fracture of the cuboid seen or of the 1st, 2nd or 3rd cu neiform. ? There is a fracture through the base of the 1st metatarsal dorsally. ?? Proximal articular surface of the 1st me tatarsal is intact. IMPRESSION: Depressed fracture distal c alcaneus where it articulates at the cuneiform. ??Fracture plantar asp ect of tarsal navicular. ??Tiny chip fracture dorsal aspect of navicular and fracture base 1st metatarsal. Radames Dupree MD SPECIAL IMAGING STUDIES Performing Organization Address City/State/ZIP Code Phon e Number RADIOLOGY RESULTS documented in this encounter Visit Diagnoses Not on filedocumented in this encounter Care Teams Private Investigator Relationship Specialty Start Date End Date None, Bfp PCP - General 03/02/99 04/12/12 documented as of this encounter
--- OUTSIDE RECORDS SUMMARY | 2021-11-10 00:52 | XMS_ITS | Clinical Summary ---
:1980 Author Organization [facility] [place] [address] Care Team Providers Name Role Phone Luis Fernando Magana MD Primary Care Provider [phone] Allergies No known active allergies Medications Medication Sig Dispensed Refills Start Date End Date Status buPROPion (WELLBUTRIN Take 150 mg by 0 09/17/2012 Active SR) 150 mg mouth every Sustained-Release tablet morning. VENLAFAXINE HCL (EFFEXOR Take 1 capsule 0 Active ORAL) by mouth 2 times daily. LEVOTHYROXINE SODIUM Take 1 tablet by 0 Active (LEVOTHYROXINE ORAL) mouth once daily. ascorbic acid (VITAMIN Take 250 mg by 0 Active C) 250 mg tablet mouth 2 times daily. buPROPion (WELLBUTRIN Take 1 tablet by 30 tablet 1 11/30/2014 Active SR; ZYBAN) 150 mg mouth once Sustained-Release daily. tabletIndications: High-risk ibuprofen (ADVIL; Take 1 tablet by 60 tablet 0 12/07/2014 Active MOTRIN) 600 mg mouth every 6 tabletIndications: S/P hours. Maximum section of 3200 mg in 24 hours. multivitamin (MULTIPLE Take 1 tablet by 0 08/27/2018 Active VITAMINS) tablet mouth once daily. buprenorphine HCl Place 1 tablet 0 08/27/2018 Active (SUBUTEX) 8 mg tablet under the tongue every morning. traZODone (DESYREL) 50 Take 1 tablet by 0 08/27/2018 Active mg tablet mouth at bedtime. diphenhydrAMINE Take 1 tablet by 0 08/27/2018 Active (BENADRYL ALLERGY) 25 mg mouth every 4 tablet hours if needed. hydrOXYzine HCl (ATARAX) Take 1 tablet by 0 08/28/19 19 Active 10 mg tablet mouth 4 times daily. Active Problems Problem Noted Date Myopia of both eyes 08/17/2015 C/S, uterine rupture 12/05/2014 Full-term premature rupture of membranes 12/03/2014 IUGR (intrauterine growth restriction) 11/23/2014 Cardiac abnormality in fetus 11/04/2014 Thyroid disease during in third trimester Generalized anxiety disorder 11/04/2014 complicated by subutex maintenance, antepart um 11/04/2014 MRSA infection greater than 3 months ago 11/04/2014 Overview: Negative nare cultures on 11/04/14 and Reflux esophagitis 11/04/2014 Other known or suspected abnormality, not elsewh ere classified, 10/25/2014 affecting management of mother, antepartum condition o r complication Supervision of other high-risk 10/11/2014 Overview: Formatting of this note is dif ferent from the original. NEXT VISIT ALERTS: GIOVANNA faxed for records from Dr. Alfredo ( who manages Subutex) on 11/10/14. FAXED again on 11/17/14. Faxed again on 11/30/14 (patient hadn't put the date on it) (*appts thru 12/02/14) TOLAC form signed 11/04/14 - to be scann ed into record. NO tubal at this time Hx MRSA - first nasal swab collected on 11/04/14 - negative. second nasal swab collected 11/23/14 - n egative. 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 + Hep C Hypothyroid Opiate use - on Subutex (4 mg TID - tot al of 12 mg a day) Hx Section x 1 2012 (most rece nt ) Smoker 1/2 ppd Late care - first OB at 22+ we eks + HPV Hx MRSA 2009 - 1st culture collected . Hx depression Anxiety - Effexor LAST GROWTH: 11/23/14 37w1d EFW at <10% 10/25/2014 33w EFW 1594 gm at 17% 08/24/2014 24 w EFW 589 g (31%) 08/12 22w2d EFW 463 g (22%) TESTING PLANS: Weekly at 32 weeks; - Add weekly dopplers DEPRESSION SCREEN Initial screen: Date 10/25 PHQ-9 score:0 : Date PHQ-9 score: MDD Present?: YES If YES, include depression in problem li st GIOVANNA: 11/30- GIOVANNA signed for Dr. Sayda HEREDIA signed for [facility]: Signed 10/25/14 REFERRING PHYSICIAN: Angelique Brewer - [facility] [phone] Breanna Frankojarad [facility] [phone] SPECIALISTS: Dr. Alfredo [facility] (pain MD?) BOBBIN TRUCKER: Yesenia Zaman, [facility] CARE COORDINATION: Erika Galvan,GENARO/Camryn Hernandez, RN [phone] CONSULTS: Presented at Teresa/Gabriel Rounds on 11/03 NICU Consult/Tour: 11/10 [place] 12:30 [facility] [place] [id number] Cardiac Surgery Consult: will not meet p renatal/Dummer PROCEDURES: CHECKLIST FOR SCHEDULING PRO CEDURES: Procedure: Induction Hospital: [facility] Unit: L&D Date & Time of procedure: 12/06/14 at 12 00 Savage Score if induction: 6 Pertinent information: Gestational age on procedure date: 39w0d MD doing procedure: Hospitalist Date scheduled: 11/30/2014 Scheduling MD & RN: Lona Hernandez, MARILIA and Kae Guadarrama, GENARO Hospitalist Delivery-Brianna Rodriguez notif ied: (#[phone]) Yes H&P and Plan in chart: Not Applicable [facility] notified via [employer] inbox? Not Applicable On [facility] calendar? Not Applicable Amnio needed: No Amnio scheduled: Not Applicable Does NICU need notification: Yes NICU notification done: Yes (NICU ) PPTL permit signed: Not Applicable Patient notified of procedure date: Yes, Discussed: 11/30/14 Written admission instructions given to patient: Yes Destiny Gopal NICU [phone] Peds Surgery Durga/Angelika [phone] Dr.Nagib Lozano Neurology [facility] Dr.Aliabadi Lozano Urology [phone] Heart Surgery Kathleen [phone] MEDS: Subutex Effexor Levothyroxine 125 mcg Wellbutrin Pertinent/Abnormal LABS: Blood type: B+ Last pap: 2012 Initial Hgb 11.4 on 08/12/2014 /Ferritin1 3.1 Hgb 28 wk none drawn, Hgb on 10/25 (33w) = 9.6, Ferritin = 13.1 (called pt on 10/26 and instructed her to take iron and vit C BID) Hgb 36 -37 wk Drawn 11/23 = 11.4 Repeat hgb anemic and compliant every 4 wks until >11.0 11/30/14- GBS: Negative ACTIVITY RESTRICTIONS: NURSING: Tdap vaccine: GIVE BETWEEN 27 AND 36 WEE [place] Date given: 11/04/14 Non BMI Optimal wt gain Plan for Gestational Diabetes screening: Screened at 33 weeks due to spotty care pass 104 on 10/25 GENETICS: Date: Counselor: Plan: declined DELIVERY PLANS: wants TOLAC - form amarjit d 11/04/14 Not planning Tubal Ligation Is Medical assistance PLAN OF CARE: 11/23 BLANCHE Plan: Weekly OB checks Continue weekly BPP/NSTs - add weekly do ppler studies (per Dr. Brandt) 2nd MRSA nasal swab today due to hx MRSA infection. First swab negative on 11/04/14 Hgb, extra gold tube today Patient refused GBS culture today - stat es, I was not prepared for this. Agrees to have it collected next week. If patient comes in in labor before next week, will need rapid GBS eRx sent to patient's pharmacy for Wellb utrin XL 150mg oral daily. Qty: 30 tabs, 1 refill. Continue psychiatric care with primary p sychiatrist Continue subutex at current dose Desires attempt at TOLAC. Consent form s igned 11/04/[address] Kwong Continue current levothyroxine dose NICU consult and tour done with Dr. Taylor on 11/10/14 Pediatric CV surgery consult not done as patient did not show multiple times JACKIE Zaman following Care coordination involved Labor precautions reviewed Instructed on movements and kick c ounts Patient understands she should call or r eturn to clinic if she experiences any decreased movements, increased contractions (discomfort and frequency), preeclampsia symptoms, vaginal bleeding, or leaking of fluid. Delivery plan: Await spontaneous labor, per Dr. Rikki Hernandez, NATALEE [facility] Insufficient care 04/30/2009 Hepatitis C carrier 04/30/2009 Unspecified drug dependence, unspecified 09/13/2004 Overview: started Oxycontin, 3 yrs, then heroin fo r 2 yrs Resolved Problems Problem Noted Date Resolved Date Normal delivery 04/30/2009 10/25/2014 Meconium in amniotic fluid noted before labor in liveborn 10/25/2014 infant Supervision of other normal 09/13/2004 DEPENDENCE, DRUG NEC, UNSPECIFIED 05/05/20002004 EXAMINATION, ROUTINE MEDICAL 04/16/2000 09/13/2004 MALAISE AND FATIGUE 04/16/2000 09/13/2004 DEPRESSION, NEUROTIC 04/16/2000 09/13/2004 Immunizations Name Administration Dates Next Due Tdap 11/04/2014 Family History Medical History Relation Name Comments Alcohol/Drug Brother 1 age 26, marijuan a use Alcohol/Drug Brother 2 oxycontin and he roin, clean 1 yr, age now 21 [facility] Brother 3 age 12 Alcohol/Drug Father did have oxycont in,heroin addiction, age now 60 [facility] Mother age 45 Alcohol/Drug Sister 1 oxycontin, now a ge 20 [facility] Sister 2 age 13 Relation Name Status Comments Brother 1 Alive Brother 2 Alive Brother 3 Alive Father Alive Maternal Grandfather Alive Maternal Grandmother Mother Alive Paternal Grandfather Paternal Grandmother Alive Sister 1 Alive Sister 2 Alive Social History Tobacco Use Types Packs/Day Years Used Date Current Every Day Smoker 0.2 12 Smokeless Tobacco: Never Used Tobacco Cessation: Ready to Quit: No; Co unseling Given: Yes Comments: was smoking 1/2-1 PPD, now abo ut 1/2 PPD. MCTIP infor given and a call accepted Alcohol Use Standard Drinks/Week Comments No 0 (1 standard drink = 0.6 oz pure alcoho l) Sex Assigned at Date Recorded Not on file Obstetrics History Para Term AB IAB SAB Ectopic Multiple Living Live Births 7 7 7 0 0 0 0 0 0 6 7 Date Outcome GA Total Labor/2nd/3rd Weight Sex Delivery Anes PTL Hina A 1 A5 Name Clin Labor 11/06 Term 40w 14h 00m/ 3.43 kg F Vag Epidu N Layla B 0d (7 lb 9 ral ng na oz) Delivery Location: [facility] Comments: wt gain 25#. uncomplicat ed. dilated slowly. AROM. Uncomplicated delivery. 04/08/2005 Term 41w0d F Vag Living Complications: None Delivery Location: [place] 05/30/2006 Term 40w0d M Vag Living Delivery Location: [facility] 04/30/2009 Term 37w0d F Vag Epidural Living Delivery Location: [place] 10/01/2010 Term 40w0d M Vag Epidural N Demis e Delivery Location: [facility] 07/20/2012 Term 40w0d M Epidural, General Living Delivery Location: [place] 12/04/2014 Term 38w5d 2.49 kg (5 lb 7.8 oz) M L iving 1 3 Complications: Uterine rupture during la bor Delivery Location: [facility] Last Filed Vital Signs Vital Sign Reading Time Taken Comments Blood Pressure 118/78 08/27/2018 4:01 PM CDT Pulse 85 08/27/2018 4:01 PM CDT Temperature 37 ??C (98.6 ??F) 12/11/2014 2:38 PM CDT Respiratory Rate 16 12/07/2014 3:38 PM CDT Oxygen Saturation 98% 08/27/2018 4:01 PM CDT Inhaled Oxygen Concentration - - Weight 82.9 kg (182 lb 12.8 oz) 08/27/2018 4:01 PM CDT Height 167.6 cm (5' 5.98) 12/11/2014 2:38 PM CDT Body Mass Index 29.52 12/11/2014 2:38 PM CDT Plan of Treatment Health Maintenance Due Date Last Done Comments Depression screening for age 12+ 1992 BMI (ht and wt on same day) for 1998 age 18+ Pap test for age 21-65 2001 COVID-19 vaccine series (2 - 11/08/2020 10/11/2020 Moderna series) Influenza for age 9-49 10/18/2021 Tetanus booster 11/04/2024 11/04/2014 Hepatitis C screening for age Completed 06/24/2013, 2013, 18-79 04/30/2009, Additional history exists Tdap Completed 11/04/2014 Results Not on filefrom Last 3 Months Additional Health Concerns Infection Onset Date Last Indicated MRSAComment: Order contact precautions. Nares surveillance 0 11/07/2014 11/07/2014 cultures needed to clear patient. #1 Nasal 11/04/14 - negative #2 +MRSA Chest wound 08/28/09 Insurance Payer Benefit Plan / Subscriber ID Effective Dates Phone Addre ss Type Group [employer] BR[employer]Y GARCIA MA [id number] 2021-Present [address] [place] [address] Advance Directives Latest Code Status on File Code Status Date Activated Date Inactivated Comments Full Code 12/04/2014 6:39 AM 12/07/2014 7:40 PM Full Code 12/03/2014 8:45 PM 12/04/2014 6:39 AM Full Code 12/03/2014 4:25 PM 12/03/2014 8:45 PM Full Code 12/03/2014 3:24 PM 12/03/2014 4:25 PM Full Code 04/30/2009 10:06 PM 05/02/2009 3:13 PM Care Teams [employer] Relationship Specialty Start Date End Date Luis Fernando Magana MD PCP - General Family Practice 06/24/13 [address] [place] [address]
--- OUTSIDE RECORDS SUMMARY | 2021-11-10 00:52 | XMS_ITS | Clinical Summary ---
:1980 Author Organization [facility] Address [address] [place] [address] Care Team Providers Name Role Phone Unavailable Primary Care Provider Unavailable Source Comments You are receiving this document as you are listed as the primary care provider,follow-up provider, or the patient has been referred to you for consultation.This is in compliance with the Medicare and Medicaid EHR Incentive Program,which states Providers who transition their patient to another setting of careor provider of care or refers their patient to another provider of care shouldprovide summarycare record for each transition of care or referral. [facility] Allergies No known active allergies Medications Medication Sig Dispensed Refills Start Date End Date Status buprenorphine (SUBUTEX) PLACE 1 TABLET 0 08/16/2020 Active sublingual tablet UNDER THE TONGUE 2 TIMES DAILY Cholecalciferol (VITAMIN Take 1 Capsule 0 05/27/2020 Active D3) 50 MCG (2000 UT) by mouth daily. folic acid 1 MG tablet Take 1 mg by 0 06/04/2020 Active mouth daily. gabapentin (NEURONTIN) 0 08/16/2020 Active 100 MG capsule levothyroxine TAKE 1 TABLET 0 07/31/2020 A ctive (SYNTHROID) 125 MCG (125 MCG) BY tablet MOUTH DAILY ondansetron (ZOFRAN) 4 TAKE 1 TAB BY 0 05/30/2020 Active MG tablet MOUTH TWICE A DAY NEEDED venlafaxine (EFFEXORXR) TAKE 2 CAPSUL 0 07/31/2020 Active 150 MG 24 hour release (300 MG) PO capsule DAILY polyethylene glycol 3350 TAKE 17 G BY 0 05/27/2020 Active (GLYCOLAX) 17 GM/SCOOP MOUTH DAILY powder diclofenac (VOLTAREN) 1 Bid effect area 30 g 0 08/26/2020 Active % gel Social History Tobacco Use Types Packs/Day Years Used Date Smoking Tobacco: Every Day Smokeless Tobacco: Never Sex Assigned at Date Recorded Not on file Last Filed Vital Signs Vital Sign Reading Time Taken Comments Blood Pressure 125/68 08/26/2020 4:09 PM CDT Pulse 91 08/26/2020 4:09 PM CDT Temperature 36.9 ??C (98.5 ??F) 08/26/2020 4:09 PM CDT Respiratory Rate 16 08/26/2020 4:09 PM CDT Oxygen Saturation 98% 08/26/2020 4:09 PM CDT Inhaled Oxygen Concentration - - Weight - - Height - - Body Mass Index - - Plan of Treatment Health Maintenance Due Date Last Done Comments Cervical Cancer Screening Due 1980 Hep C Screening (Preventive 1980 Services) HepB (1) 1980 COVID-19 Vaccine (#1) 03/27/1981 Pneumococcal (1 - PCV) 1986 HIV Screening (Preventive 1996 Services) Adult Preventive Visit 1998 Influenza (#1) 2021 12/08/2016 DTaP/Tdap/Td (2 - Tdap) 12/11/2026 12/11/2016 Zoster/Shingles (1 of 2) 2030 HPV Vaccine Aged Out No longer eligib le based on patient's age to complete this topic HepA Aged Out No longer eligib le based on patient's age to complete this topic Hib Aged Out No longer eligib le based on patient's age to complete this topic IPV (Polio) Aged Out No longer eligib le based on patient's age to complete this topic MCV4 Aged Out No longer eligib le based on patient's age to complete this topic
--- OUTSIDE RECORDS SUMMARY | 2021-11-10 00:52 | XMS_ITS | Encounter Summary ---
:1980 Author Organization [facility] Address [address] [place] [address] Care Team Providers Name Role Phone Unavailable Primary Care Provider Unavailable Reason for Visit Reason Comments Knee Pain or Injury ANKLE PAIN Encounter Details Date Type Department Care Team Description 08/26/2020 Hospital Encounter [facility] [id number] Aishwarya Marie MD Chronic pain of left knee; Urgent Care [address] Acute right ankle pain [address] [place] [id number] [phone] Social History Tobacco Use Types Packs/Day Years Used Date Smoking Tobacco: Every Day Smokeless Tobacco: Never Sex Assigned at Date Recorded Not on file documented as of this encounter Last Filed [...] Refills Start Date End Date buprenorphine (SUBUTEX) PLACE 1 TABLET 0 08/17/19 21 sublingual tablet UNDER THE TONGUE 2 TIMES DAILY Cholecalciferol (VITAMIN D3) Take 1 Capsule by 0 05/27/2020 50 MCG (2000 UT) mouth daily. diclofenac (VOLTAREN) 1 % Bid effect area 30 g 0 08/26 gel folic acid 1 MG tablet Take 1 mg by mouth 0 06/04 daily. gabapentin (NEURONTIN) 100 0 1 MG capsule levothyroxine (SYNTHROID) TAKE 1 TABLET (125 0 125 MCG tablet MCG) BY MOUTH DAILY ondansetron (ZOFRAN) 4 MG TAKE 1 TAB BY MOUTH 0 0 05/30/2020 tablet TWICE A DAY NEEDED polyethylene glycol 3350 TAKE 17 G BY MOUTH 0 11/2020 (GLYCOLAX) 17 GM/SCOOP DAILY powder venlafaxine (EFFEXORXR) 150 TAKE 2 CAPSUL (300 0 07/31/2020 MG 24 hour release capsule MG) PO DAILY documented as of this encounter ED Notes Aishwarya Marie MD - 08/26/2020 5:17 PM CDT Stephani King is a 39 y.o.female presents to the Urgent Care for Knee Pain or Injury and ANKLE PAIN Pt states she has arthritis and this is an ongoing issue. She has left knee pain and right ankle pain. Has had injections in the knee and ankle for pain/discomfort. First time it worked for a month andsecond time it worked for approx a week. Pain to knee is mild but when standing is worse. Standing Pain 7/10 Ankle pain is 7/10 with standing. States I am supposed to be talking about getting an ankle replacement. Patient also is inquiring about covid vaccines. SUBJECTIVE: Stephani King is a 39 y.o.female Chief Complaint: Chief Complaint Patient presents with ??? Knee Pain or Injury ??? ANKLE PAIN HPI: 39 years old female presented to the clinic with her cat and another lady with concern about her right ankle pain, and left knee pain. With no history of new injury and those are chronic problem does going on for long time. Patient stated she has severe degenerative arthritis dated steroid injection not helping anymore when she need usually surgery. But she has no appointment with orthopedic people. If she take ibuprofen or Tylenol it helps but for short time and then go way again the paincome ROS: Complete ROS was negative other than what was cited above. Social History: Social History Tobacco Use ??? Smoking status: Current Every Day Smoker ??? Smokeless tobacco: Never Used Vaping Use ??? Vaping Use: Never used Substance Use Topics ??? Alcohol use: Not on file ??? Drug use: Not on file Past Medical History: There is no problem list on file for this patient. Adverse Drug Reactions: Patient has no known allergies. Medications: Vitamin D3, buprenorphine, diclofenac, folic acid, gabapentin, levothyroxine, ondansetron, polyethylene glycol 3350, and venlafaxine OBJECTIVE: Vital Signs: BP 125/68 (BP Location: Right Arm, BP Cuff Size: Regular) Pulse 91 Temp 36.9 ??C (98.5 ??F) (Oral) Resp 16 SpO2 98% . General: In no distress her vital signs are stable HEENT: Negative Lymphatic: No enlarged lymph node Chest: Good air movement Heart: No murmur Abdomen: Soft Musculoskeletal: Upper and lower extremity I do not see any deformity or bruises flexion extension her ankle on the right side with flexion she complained about pain in the Achillis tendon area. Squeezing the ankle joint between my hand palpitation the ankle joint or the feet is not tender mostly in the ocular and tenderness soft tissue area. Her left knee grinding sensation no effusion. Skin: No rash she has multiple scratch sensation I think she is P care on her skin. Neurological: No focal Psychiatric: Denies any problem Labs: Labs Reviewed - No data to display X-Rays: No results found. ASSESSMENT: 1. Chronic pain of left knee 2. Acute right ankle pain PLAN: We agree at this time she with Voltaren gel b.i.d. between take Tylenol no ibuprofen, went to see [facility] orthopedic surgeon or her primary doctor for the chronic management or if is needed surgery worse additional symptom back to the clinic anytime. Medications - No data to display Medications Prescribed this Visit Disp Refills Start End diclofenac (VOLTAREN) 1 % gel 30 g 0 08/26/2020 Bid effect area Discharge instructions are on file. The patient was discharged ambulatory and in stable condition. documented in this encounter Plan of Treatment Not on filedocumented as of this encounter Visit Diagnoses Diagnosis Chronic pain of left knee Pain in joint, lower leg Acute right ankle pain Triage Assessment Note - Clarissa Ch RN - 08/26/2020 4:11 PM CDT Stpehani King is a 39 y.o.female presents to the Urgent Care for Knee Pain or Injury and ANKLE PAIN Pt states she has arthritis and this is an ongoing issue. She has left knee pain and right ankle pain. Has had injections in the knee and ankle for pain/discomfort. First time it worked for a month andsecond time it worked for approx a week. Pain to knee is mild but when standing is worse. Standing Pain 7/10 Ankle pain is 7/10 with standing. States I am supposed to be talking about getting an ankle replacement. Patient also is inquiring about covid vaccines. documented in this encounter
--- OUTSIDE RECORDS SUMMARY | 2021-11-10 00:52 | XMS_ITS | Encounter Summary ---
:1980 [facility] Address [address] [place] [address] Care Team Providers Name Role Phone Unavailable Primary Care Provider Unavailable Reason for Visit Procedure/Equipment (Routine) - Incomplete Specialty Diagnoses / Procedures Referred By Contact Refer red To Contact Diagnoses Acute right ankle pain Jamie Sr MBBS Procedures XR Ankle Rt 3 Views [address] [place], [place] [address] Referral ID Status Reason Start Date Expiration Date Visits V isits Requested Authorized [id number] Incomplete 08/26/2020 11/25/2021 1 1 Encounter Details Date Type Department Care Team Description 08/26/2020 Ancillary Procedure [facility] Canceled (Patient [id number] Request) [place] [address] Social History Tobacco Use Types Packs/Day Years Used Date Smoking Tobacco: Every Day Smokeless Tobacco: Never Sex Assigned at Date Recorded Not on file documented as of this encounter Plan of Treatment Not on filedocumented as of this encounter Visit Diagnoses Not on filedocumented in this encounter
--- OUTSIDE RECORDS SUMMARY | 2021-11-10 00:52 | XMS_ITS | Encounter Summary ---
:1980 Author [facility] Address [address] [place] [address] Care Team Providers Name Role Phone Unavailable Primary Care Provider Unavailable Reason for Visit Procedure/Equipment (Routine) - Incomplete Specialty Diagnoses / Procedures Referred By Contact Refer red To Contact Diagnoses Chronic pain of left knee Jamie Sr MBBS Procedures XR Knee Lt 3 Views [address] [place], [place] [address] Referral ID Status Reason Start Date Expiration Date Visits V isits Requested Authorized [id number] Incomplete 08/26/2020 11/25/2021 1 1 Encounter Details Date Type Department Care Team Description 08/26/2020 Ancillary Procedure [facility] Canceled (Patient [id number] Request) [place] [address] Social History Tobacco Use Types Packs/Day Years Used Date Smoking Tobacco: Every Day Smokeless Tobacco: Never Sex Assigned at Date Recorded Not on file documented as of this encounter Plan of Treatment Not on filedocumented as of this encounter Visit Diagnoses Not on filedocumented in this encounter
--- OUTSIDE RECORDS SUMMARY | 2021-11-10 00:53 | XMS_ITS | Encounter Summary ---
:1980 Author Organization [facility] Address [address] [place] [address] Care Team Providers Name Role Phone Stephani Pina APRN BRIDAL SALES CONSULTANT Unavailable [phone] Juanis Levi Primary Care Provider Elsa Yeh RN Unavailable Unavailable Rogelio Treadwell MD Unavailable [phone] Reason for Visit Auth/Cert Specialty Diagnoses / Procedures Referred By Contact Refer red To Contact Surgery Diagnoses Non-healing surgical wound, subsequent encounter Non-healing surgical wound, subsequent encounter [T81.89XD] [facility] Main Or Procedures HC SPLIT GRFT,HEAD,FAC,HAND,FEET <100SQCM Right ankle split skin graft from right.left thigh [address] [facility] [address] 5th [place] [address] Phone: Fax: Referral ID Status Reason Start Date Expiration Date Visits Requ ested Visits Authorized [id number] 1 1 Encounter Details Date Type Department Care Team Description 08/[facility] OR Keith Owen MD wound, subsequent [address] [facility] SE [facility] [address] 5th [place] [address] Social History Tobacco Use Types Packs/Day Years [...] at Date Recorded Female 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 documented as of this encounter Last Filed Vital Signs Vital Sign Reading Time Taken Comments Blood Pressure 133/79 08/15/2021 4:15 PM CDT Pulse 88 08/15/2021 4:15 PM CDT Temperature 36.4 ??C (97.5 ??F) 08/15/2021 4:15 PM CDT Respiratory Rate 14 08/15/2021 4:15 PM CDT Oxygen Saturation 94% 08/15/2021 4:15 PM CDT Inhaled Oxygen Concentration - - [...] concern. For Medical Questions, Please Call: ? [phone], Friday - Friday, 8 a.m. - 4:30 p.m. ? After hours and on weekends, call Hospital Paging at [phone] and ask for the Plastic Surgeon patient monitor. [facility] Home Care Following Anesthesia For 24 hours after surgery: Get plenty of rest. A responsible adult must stay with you for at least 24 hours after you leave [facility]. Do not drive or use heavy equipment. [...] doctor is: Dr. Betty Christina, Plastic Surgery: [phone] Or dial [phone] and ask for the resident patient monitor for: Plastics For emergency care, call the: [facility] Emergency Department: [phone] (TTY for hearing impaired: [phone]) documented in this encounter Medications at Time [...] of trunk mineral oil-hydrophilic Apply topically 0 07/21/ 022 petrolatum (AQUAPHOR) every 4 hours as [...] hours clobetasol (TEMOVATE) Apply topically 2 0 022 08/21/2021 0.05 % external times daily [...] CDT Report given to GENARO Rooney at [facility]. LIOT Camryn Christina MD - 08/15/2021 1:55 PM [...] curette to curettage the biofilm and granulation stone layer. Hemostasis was ensured, and the skin [...] MD MT: [id number] Name: STEPHANI REDDY Account: [id number] : 1980 Procedure Date: 08/15/2021 Document: [id number] Brief Op Note - Christiano Santacruz MD - 08/15/2021 3:24 PM CDT [facility] Brief Operative Note Pre-operative diagnosis: Non-healing surgical [...] Office Visit Wound Care Luis Camara, [place] [address] [place] [id number] (Wo rk) documented as of this encounter Procedures Procedure Name Priority Date/Time Associated Diagnosis Comme nts SURGICAL PROCUREMENT, 08/15/2021 2:16 PM CDT Non-heali ng surgical GRAFT, SKIN, wound, subsequent SPLIT-THICKNESS, encounter EXTREMITY Special Needs Wound VAC ordered and approv ed. Please make sure patient brings wound vac and all supplies with on DOS. PT GREG RENTLY RESIDES AT [facility]: PLEASE CALL [phone] WITH ANY I NSTRUCTIONS AND TIME CHANGES FOR 08/15 SURGERY. THEY SET UP TRANSPORT ETC. Cristin [facility] Admission Notes since beginning of July; Dr. Christina and coordinator message to gregory wright. Per message from coordinator, TCU will do pre-op and COVID charito t (EK 08/10/21) documented in this encounter Visit Diagnoses Diagnosis Non-healing surgical wound, subsequent e ncounter - Primary documented in this encounter Admitting Diagnoses Diagnosis [...] mg/kg/day not to exceed 4 grams/day., Pre-procedure lactated ringers infusion New Bag 08/15/2021 2:31 PM CDT at 100 mL/hr, Intravenous, CONTINUOUS, Pre-procedure, Starting on Fri08/15/21 at 1330, Until Fri08/15/21 at 1516 New Bag 08/15/2021 1:47 PM CDT 100 mL/hr oxyCODONE (ROXICODONE) tablet 5 mg Given 08/15/2021 [...] documented as of this encounter Care Teams Childcare Administrator Relationship Specialty Start Date End Date Juanis Levi PCP - General Addiction Medicine 06/29/21 [address] [place] [address] Stephani Pina, Assigned PCP 02/25/21 [place] BRIDAL SALES CONSULTANT [address] [place] [address] Elsa Yeh, Registered Nurse Infectious Diseases 07/25/21 RN Rogelio Treadwell Assigned Musculoskeletal 08/04/21 MD August Provider [address]09 [place], [place] [address] documented as of this encounter
--- NOTE | 2021-11-10 02:00 | ED.NURSE ---
Pt BP 123/63 prior to starting blood. BP 93/59 and pt was lying on her side at 0145, BP 105/54 supine at 0157. MD updated, pt not having any complaints of transfusion related symptoms. OK to continue blood transfusion per MD.
--- NOTE | 2021-11-10 02:45 | ED.NURSE ---
Dr. Smith updated on BP trend. Pt asking for something to eat, will wait.
[2021-11-10] MEDS: 0.9 % SODIUM CHLORIDE 1000 ml 1,000 ML IV (03:00)
[2021-11-10] MEDS: PANTOPRAZOLE SODIUM 40 MG INJ IVP (04:53)
[2021-11-10 06:17] LABS: INR 1.64 (0.91-1.10); Prothrombin Time 19.8 Seconds
--- NOTE | 2021-11-10 06:37 | ED.NURSE ---
RN to RN report given. Gave ETA of EMS.
[2021-11-10 06:48] LABS: Partial Thromboplastin Time* 40 Seconds (23-33)
== END 2021-11-10 06:45 | disposition other institution (70) ==
PROVIDERS: Emergency Provider Family Medicine; PCP Physician Assistant Medical
DX: K92.2 Gastrointestinal hemorrhage, unspecified (principal); F41.9 Anxiety disorder, unspecified; D64.9 Anemia, unspecified; D69.6 Thrombocytopenia, unspecified
CPT/HCPCS: 36415; 36430; 80048; 80076; 80306; 81001; 82077; 83735; 85025; 85610; 85730; 86140; 86850; 86900; 86901; 86922; 87631; 87651; 96374; 99284; 99285; 99291; C9113; J7030; P9016

== ENCOUNTER 2021-11-10 06:15 | Outpatient (CLI) | payer MEDICAID, SELFPAY ==
--- OUTSIDE RECORDS SUMMARY | 2021-12-13 12:29 | XMS_ITS | Encounter Summary ---
:1980 Author Organization [place] Address [address] [place] [address] Care Team Providers Name Role Phone Stephani Pina FLAVORER HOSTING ENGINEER Unavailable [phone] Juanis Levi Primary Care Provider Elsa Yeh RN Unavailable Unavailable Rogelio Treadwell MD Unavailable [phone] Luis Camara DPM Unavailable [phone] Sintia Lange PA-C Unavailable Encounter Details [...] at Date Recorded Female 01/14/2020 10:57 AM GEOPHYSICAL OPERATOR COVID-19 Exposure Response Date Recorded In the last 10 days, have you been in contact Unable to asse ss 10/18/2021 4:13 PM CDT with someone who was confirmed or suspected to have Coronavirus/COVID-19? documented as of this encounter Plan of Treatment Upcoming Encounters Date Type Specialty Care Team Description 12/20/2021 Office Visit Wound Care Luis Camara DPM 909 [place], [place] [address]385 (Wo rk) 01/21/2022 PRE VISIT Gastroenterology Landon Warren, *-*INCOMIN G RECORDS*-* MD Luis Fernando [address] [place] [address] (Wo rk) 01/21/2022 Office Visit Gastroenterology Juanis Levi 2450 [place] [phone] Luis Fernando Miles MD [address] [place] [address] documented as of this encounter Visit Diagnoses Not on filedocumented in this encounter Additional Health Concerns Infection Onset Date Last Indicated Resolved Time MRSAComment: Added from external infection. 11/07/201406/18 Assessment Noted Time PHQ-9 Depression Total Score: 8 10/18/2021 3:15 PM CDT documented as of this encounter Care Teams Flooring Installer Relationship Specialty Start Date End Date Juanis Levi PCP - General Addiction Medicine 06/29/21 2450 [place] [phone] Stephani Pina, Assigned PCP 02/25/21 FLAVORER HOSTING ENGINEER [address] [place], [place] [address] Elsa Yeh, Registered Nurse Infectious Diseases 07/25/21 RN Rogelio Treadwell Assigned Musculoskeletal 08/04/21 MD August Provider [address] [place], [place] [address] Luis Camara MD Podiatry 08/16/21 CALVIN Brunett [address] [place] [address] Sintia Lange, Assigned Surgical 09/08/21 PA-C Provider [address] [address] documented as of this encounter
--- OUTSIDE RECORDS SUMMARY | 2021-12-13 12:29 | XMS_ITS | Encounter Summary ---
:1980 Author Organization [place] Address [address] [place] [address] Care Team Providers Name Role Phone Stephani Pina CODING MANAGER HIGH DENSITY FINISHING OPERATOR Unavailable [phone] Juanis Levi Primary Care Provider Elsa Yeh RN Unavailable Unavailable Rogelio Treadwell MD Unavailable [phone] Luis Camara DPM Unavailable [phone] Camryn Christina MD Unavailable Sintia Lange PA-C Unavailable Luis Fernando Miles MD Unavailable [phone] Reason for Visit Reason Onset Date Comments Call Back 08/27/2021 Encounter Details Date Type Department Care Team Description 08/27/2021 Telephone [facility] Plastic and Camryn Christina Call Back Reconstructive Surgery Clinic [address] [place] [address] Floor [place] [phone] Social History Tobacco Use Types Packs/Day Years Used Date Smoking Tobacco: Former Cigarettes 0.3 10 Smokeless Tobacco: Never Comments: 5-8 cigarettes a day (hasn't s moked since in transitional care 6/6/22) Alcohol Use Standard Drinks/Week Comments Not Currently 0 (1 standard drink = 0.6 oz pure alcoho l) sober since 05/08 Sex Assigned at Date Recorded Female 01/14/2020 10:57 AM ENTRY LEVEL SALES ASSOCIATE COVID-19 Exposure Response Date Recorded In [...] Mon-Fri with questions or concerns through a SLIC gamest message via your doctor's name (most efficient) or, call [phone]. For urgent medical issues that cannot wait, call the clinic at [phone] Mon- Fri 8:-4:30. If you need help over the weekend you can call the hospital to speak with the on-call resident. Thatnumber is [phone]. Telephone Encounter - Aristeotrev Joseph - 08/27/2021 3:53 PM CDT [facility] Call Center Phone Message May [...] Visit Wound Care Luis Camara DPM [address] [place], [place] [address] (Reinaldo molina) 01/21/2022 PRE VISIT Gastroenterology Landon Warren, *-*INCOMIN G RECORDS*-* MD Luis Fernando [address] [place] [address] (Reinaldo molina) 01/21/2022 Office Visit Gastroenterology Juanis Levi 2450 [place] [phone] Luis Fernando Miles MD [address] [place] [address] documented as of this encounter Visit Diagnoses Not on filedocumented in this encounter Additional Health Concerns Infection Onset Date Last Indicated Resolved Time MRSAComment: Added from external infection. 11/07/2014 05/2 02/2021 Assessment Noted Time PHQ-9 Depression Total Score: 2 12/15/2020 1:07 PM CDT documented as of this encounter Care Teams Nuclear Reactor Operator Relationship Specialty Start Date End Date Juanis Levi PCP - General Addiction Medicine 06/29/21 2450 [facility] [place] [phone] Stephani Pina, Assigned PCP 02/25/21 CODING MANAGER HIGH DENSITY FINISHING OPERATOR [address] [place] [address] Elsa Yeh, Registered Nurse Infectious Diseases 07/25/21 RN Rogelio Treadwell Assigned Musculoskeletal 08/04/21 MD August Provider 909 [place] [address] Luis Camara MD Podiatry 08/16/21 CALVIN Burnett [address] [place], [place] [phone] Camryn Christina Assigned Surgical 09/01/21 09/07/21 MD Lexie Provider 420 [facility] [address] [place], [place] [address] Sintia Lange, Assigned Surgical 09/08/21 PA-C Provider 909 [facility] 4TH FLOOR [place], [place] [address] Landon Warren MD Gastroenterology 11/21/21 MD Luis Fernando 516 [facility] [address] [place], [place] [address] documented as of this encounter
--- OUTSIDE RECORDS SUMMARY | 2021-12-13 12:29 | XMS_ITS | Encounter Summary ---
:1980 Author Organization [facility] Address [address] [place] [address] Care Team Providers Name Role Phone Stephani Pina CARE INFORMATION ASSOCIATE MUSIC PROFESSOR Unavailable [phone] Juanis Levi Primary Care Provider Elsa Yeh RN Unavailable Unavailable Rogelio Treadwell MD Unavailable [phone] Luis Camara DPM Unavailable [phone] Encounter Details Date Type Department Care Team [...] Date Recorded Female 01/14/2020 10:57 AM MANAGER BEHAVIOR COVID-19 Exposure Response Date Recorded In the last 10 days, have you been in contact with No / Unsu re 08/23/2021 10:57 AM CDT someone who was confirmed or suspected to have Coronavirus/COVID-19? documented as of this encounter Plan of Treatment Upcoming Encounters Date Type Specialty Care Team Description 12/20/2021 Office Visit Wound Care Luis Camara, DPM 909 [place] [address] (Wo rk) 01/21/2022 PRE VISIT Gastroenterology Landon Warren, *-*WANDAIN G RECORDS*-* MD Luis Fernando [address] [place] [address] 2[address] [place], [place] [address]055 (Wo rk) 01/21/2022 Office Visit Gastroenterology Juanis Levi [facility] [place] [phone] Luis Fernando Miles MD [address] [place] [address] documented as of this encounter Visit Diagnoses Not on filedocumented in this encounter Additional Health Concerns Infection Onset Date Last Indicated Resolved Time MRSAComment: Added from external infection. 11/07/201406/18 Assessment Noted Time PHQ-9 Depression Total Score: 2 12/15/2020 1:07 PM CDT documented as of this encounter Care Teams It Manager Relationship Specialty Start Date End Date Juanis Levi PCP - General Addiction Medicine 06/29/[address] [place] [phone] Stephani Pina, Assigned PCP 02/25/21 CARE INFORMATION ASSOCIATE MUSIC PROFESSOR [address] [address] Elsa Yeh, Registered Nurse Infectious Diseases 07/25/21 RN Rogelio Treadwell Assigned Musculoskeletal 08/04/21 MD August Provider [address] [place] [address] Luis Camara MD Podiatry 08/16/21 CALVIN Burnett [address] [place] [address] documented as of this encounter
--- OUTSIDE RECORDS SUMMARY | 2021-12-13 12:29 | XMS_ITS | Encounter Summary ---
:1980 Author Organization [place] Address [address] [place] [address] Care Team Providers Name Role Phone Stephani Pina YELLOW PAGES SPACE SALESPERSON EQUITY SALES ASSISTANT Unavailable [phone] Juanis Levi Primary Care Provider Elsa Yeh RN Unavailable Unavailable Rogelio Treadwell MD Unavailable [phone] Luis Camara DPM Unavailable [phone] Sintia Lange PA-C Unavailable Luis Fernando Miles MD Unavailable [phone] Encounter Details Date Type Department Care [...] at Date Recorded Female 01/14/2020 10:57 AM PEDIATRICS TEACHER COVID-19 Exposure Response Date Recorded In the last 10 days, have you been in contact Unable to asse ss 11/21/2021 10:22 AM CDT with someone who was confirmed or suspected to have Coronavirus/COVID-19? documented as of this encounter Plan of Treatment Upcoming Encounters Date Type Specialty Care Team Description 12/20/2021 Office Visit Wound Care Luis Camara DPM 909 [place] [address] (Wo rk) 01/21/2022 PRE VISIT Gastroenterology Landon Warren, *-*INCOMIN G RECORDS*-* MD Luis Fernando [address] [place] [address] (Wo rk) 01/21/2022 Office Visit Gastroenterology Juanis Levi 2450 [place] [address] Luis Fernando Miles MD [address] [place] [phone] documented as of this encounter Visit Diagnoses Not on filedocumented in this encounter Additional Health Concerns Infection Onset Date Last Indicated Resolved Time MRSAComment: Added from external infection. 11/07/201406/18 Assessment Noted Time PHQ-9 Depression Total Score: 3 11/19/2021 11:45 AM CD T documented as of this encounter Care Teams Control Room Tender Relationship Specialty Start Date End Date Juanis Levi PCP - General Addiction Medicine 06/29/21 2450 [place] [address] Stephani Pina, Assigned PCP 02/25/21 YELLOW PAGES SPACE SALESPERSON EQUITY SALES ASSISTANT [address] [place], [place] [address] Elsa Yeh, Registered Nurse Infectious Diseases 07/25/21 RN Rogelio Treadwell Assigned Musculoskeletal 08/04/21 MD August Provider 909 [place] [address] Luis Camara MD Podiatry 08/16/21 Lex DPM 909 [place] [address] Sintia Lange, Assigned Surgical 09/08/21 PA-C Provider 909 [facility] 4TH [place] [address] Landon Warren MD Gastroenterology 11/21/21 MD Luis Fernando 6 [facility] 2A [place] [address] documented as of this encounter
--- OUTSIDE RECORDS SUMMARY | 2021-12-13 12:29 | XMS_ITS | Encounter Summary ---
:1980 Author Organization [place] Address [address] [place] [address] Care Team Providers Name Role Phone Stephani Pina REDEVELOPMENT MANAGER PYTHON ARCHITECT Unavailable [phone] Juanis Levi Primary Care Provider Elsa Yeh RN Unavailable Unavailable Rogelio Treadwell MD Unavailable [phone] Luis Camara DPM Unavailable [phone] Reason for Visit Reason Comments TESSY Styles, is being seen today fo r a 1 week post-op DOS 08/15 Encounter Details Date Type Department Care Team Description 08/22/2021 Office Visit [facility] Camryn Christina surgical Plastic and MD Lexie wound, subsequent Reconstructive Surgery [address] en counter (Primary Clinic [facility] [address] Dx) [address] [facility] [address] [place], [place] 4th Floor [address] [place], [place] [phone] [address] (Work) [phone] Social History Tobacco Use Types Packs/Day Years Used Date Smoking Tobacco: Former Cigarettes 0.3 10 Smokeless Tobacco: Never Comments: 5-8 cigarettes a day (hasn't s moked since in transitional care 07/23/21) Alcohol Use Standard Drinks/Week Comments Not Currently 0 (1 standard drink = 0.6 oz pure alcoho l) sober since 05/08 Sex Assigned at Date Recorded Female 01/14/2020 10:57 AM MANUSCRIPTS CURATOR COVID-19 Exposure Response Date Recorded In the [...] Chief Complaint Patient presents with ??? TESSY Styles, is being seen today for a 1 [...] Visit Wound Care Luis Camara DPM 909 [place] [address] (Wo rk) 01/21/2022 PRE VISIT Gastroenterology Landon Warren, *-*WANDAIN G RECORDS*-* MD Luis Fernando [address] [place] [address] (Wo rk) 01/21/2022 Office Visit Gastroenterology Juanis Levi 2450 [place] [phone] Luis Fernando Miles MD [address] [place] [place] [address] documented as of this encounter Visit Diagnoses Diagnosis Non-healing surgical wound, subsequent e ncounter - Primary documented in this encounter Additional Health Concerns Infection Onset Date Last Indicated Resolved Time MRSAComment: Added from external infection. 11/07/201406/18 Assessment Noted Time PHQ-9 Depression Total Score: 2 12/15/2020 1:07 PM CDT documented as of this encounter Care Teams Church Organist Relationship Specialty Start Date End Date Juanis Levi PCP - General Addiction Medicine 06/29/[address] [place] [phone] Stephani Pina, Assigned PCP 02/25/21 REDEVELOPMENT MANAGER PYTHON ARCHITECT [address] [place], [place] [address] Elsa Yeh, Registered Nurse Infectious Diseases 07/25/21 RN Rogelio Treadwell Assigned Musculoskeletal 08/04/21 MD August Provider 909 [place] [address] Luis Camara MD Podiatry 08/16/21 CALVIN Burnett [address] [place], [place] [phone] documented as of this encounter
--- OUTSIDE RECORDS SUMMARY | 2021-12-13 12:29 | XMS_ITS | Encounter Summary ---
:1980 Author Organization [facility] Address [address] [place] [address] Care Team Providers Name Role Phone Stephani Pina RETENTION 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 MACHINE MAINTENANCE SERVICER Unavailable [phone] Juanis Levi Primary Care Provider Elsa Yeh RN Unavailable Unavailable Rogelio Treadwell MD Unavailable [phone] Luis Camara DPM Unavailable [phone] Camryn Christina MD Unavailable Sintia Lange PA-C Unavailable Luis Fernando Miles MD Unavailable [phone] Reason for Visit Reason Onset Date Comments Erroneous encounter-disregard 08/27/2021 Encounter Details Date Type Department Care Team Description 08/27/[address] [facility] Unknown Erroneous Dermatology Clinic encounter -disregard [address] 3rd Floor [place] [phone] Social History Tobacco Use Types Packs/Day Years Used Date Smoking Tobacco: Former Cigarettes 0.3 10 Smokeless Tobacco: Never Comments: 5-8 cigarettes a day (hasn't s moked since in transitional care 07/23/21) Alcohol Use Standard Drinks/Week Comments Not Currently 0 (1 standard drink = 0.6 oz pure alcoho l) sober since 05/08 Sex Assigned at Date Recorded Female 01/14/2020 10:57 AM HIM ASSISTANT COVID-19 Exposure Response Date Recorded In [...] Visit Wound Care Luis Camara, CALVIN 909 [place], [place] [address] (Wo rk) 01/21/2022 PRE VISIT Gastroenterology Landon Warren, *-*WANDAIN G RECORDS*-* MD Luis Fernando [address] [place] [phone] (Wo rk) 01/21/2022 Office Visit Gastroenterology Juanis Levi [address] [place] [phone] Luis Fernando Miles MD [address] [place] [address] documented as of this encounter Visit Diagnoses Not on filedocumented in this encounter Additional Health Concerns Infection Onset Date Last Indicated Resolved Time MRSAComment: Added from external infection. 11/07/2014 05/02/2021 Assessment Noted Time PHQ-9 Depression Total Score: 2 12/15/2020 1:07 PM CDT documented as of this encounter Care Teams Cube Cutter Relationship Specialty Start Date End Date Juanis Levi PCP - General Addiction Medicine 06/29/[address] [place] [phone] Stephani Pina, Assigned PCP 02/25/21 RETENTION 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 MACHINE MAINTENANCE SERVICER [address] [place] [address] Elsa Yeh, Registered Nurse Infectious Diseases 07/25/21 Rogelio Wilson Assigned Musculoskeletal 08/04/21 MD August Provider 909 [place] [address] Luis Camara MD Podiatry 08/16/21 CALVIN Burnett 909 [place] [address] Camryn Christina Assigned Surgical 09/01/21 09/07/21 MD Lxeie Provider 420 [facility] 195 [place], [place] [address] Sintia Lange, Assigned Surgical 09/08/21 PA-C Provider 909 [facility] 4TH [place] [address] Landon Warren MD Gastroenterology 11/21/21 MD Luis Fernando 516 [facility] [address] [place] [address] documented as of this encounter
--- OUTSIDE RECORDS SUMMARY | 2021-12-13 12:29 | XMS_ITS | Encounter Summary ---
:1980 Author Organization [place] Address [address] [place] [address] Care Team Providers Name Role Phone Stephani Pina HEAD CHEF TELEPHONE BETTING CLERK Unavailable [phone] Juanis Levi Primary Care Provider Elsa Yeh RN Unavailable Unavailable Rogelio Treadwell MD Unavailable [phone] Luis Camara DPM Unavailable [phone] Sintia Lange PA-C Unavailable Encounter Details [...] at Date Recorded Female 01/14/2020 10:57 AM UNDER CUTTING 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 COVID-19 Exposure Response Date Recorded In the last 10 days, have you been in contact Unable to asse ss 11/19/2021 12:39 PM CDT with someone who was confirmed or suspected to have Coronavirus/COVID-19? documented as of this encounter Plan of Treatment Upcoming Encounters Date Type Specialty Care Team Description 12/20/2021 Office Visit Wound Care Luis Camara DPM [address]09 [place], [place] 447955 (Wo rk) 01/21/2022 PRE VISIT Gastroenterology Landon Warren, *-*INCOMIN G RECORDS*-* MD Luis Fernando [address] [place] [address] (Wo rk) 01/21/2022 Office Visit Gastroenterology Juanis Levi [address] [place] [phone] Luis Fernando Miles MD [address] [place] [address] [id number] documented as of this encounter Visit Diagnoses Not on filedocumented in this encounter Additional Health Concerns Infection Onset Date Last Indicated Resolved Time MRSAComment: Added from external infection. 11/07/201406/18 Assessment Noted Time PHQ-9 Depression Total Score: 3 11/19/2021 11:45 AM CD T documented as of this encounter Care Teams Sandwich Machine Operator Relationship Specialty Start Date End Date Juanis Levi PCP - General Addiction Medicine 06/29/21 [address] [place] [phone] Stephani Pina, Assigned PCP 02/25/21 HEAD CHEF TELEPHONE BETTING CLERK [address] [place], [place] 8[address]274 Elsa Yeh, Registered Nurse Infectious Diseases 07/25/21 RN Rogelio Treadwell Assigned Musculoskeletal 08/04/21 MD August Provider [address] [place], [place] 776475 Luis Camara MD Podiatry 08/16/21 CALVIN Burnett [address] [place] [address] Sintia Lange, Assigned Surgical 09/08/21 PA-C Provider [address] [address] documented as of this encounter
--- OUTSIDE RECORDS SUMMARY | 2021-12-13 12:29 | XMS_ITS | Encounter Summary ---
:1980 Author Organization [place] Address [address] [place] [address] Care Team Providers Name Role Phone Stephani Pina AIRWAY CONTROLLER DIESEL ELECTRICIAN Unavailable [phone] Juanis Levi Primary Care Provider Elsa Yeh RN Unavailable Unavailable Rogelio Treadwell MD Unavailable [phone] Luis Camara DPM Unavailable [phone] Sintia Lange PA-C Unavailable Luis Fernando Miles MD Unavailable [phone] Encounter Details Date Type Department Care [...] Date Recorded Female 01/14/2020 10:57 AM BARREL TURNER COVID-19 Exposure Response Date Recorded In the last 10 days, have you been in Unable to assess 12:39 PM CDT contact with someone who was confirmed or suspected to have Coronavirus/COVID-19? documented as of this encounter Plan of Treatment Upcoming Encounters Date Type Specialty Care Team Description 12/20/2021 Office Visit Wound Care Luis Camara DPM 909 [place] [address] (Wo rk) 01/21/2022 PRE VISIT Gastroenterology Landon Warren, *-*INCOMIN G RECORDS*-* MD Luis Fernando [address] [place] [phone] (Wo rk) 01/21/2022 Office Visit Gastroenterology Juanis Levi [address] [place] [address] Luis Fernando Miles MD [address] [place] [phone] documented as of this encounter Visit Diagnoses Not on filedocumented in this encounter Additional Health Concerns Infection Onset Date Last Indicated Resolved Time MRSAComment: Added from external infection. 11/07/201406/18 Assessment Noted Time PHQ-9 Depression Total Score: 3 11/19/2021 11:45 AM CD T documented as of this encounter Care Teams Foam Machine Operator Relationship Specialty Start Date End Date Juanis Levi PCP - General Addiction Medicine 06/29/21 [address] [place] [address] Stephani Pina, Assigned PCP 02/25/21 AIRWAY CONTROLLER DIESEL ELECTRICIAN [address] [place], [place] [address] Elsa Yeh, Registered Nurse Infectious Diseases 07/25/21 RN Rogelio Treadwell Assigned Musculoskeletal 08/04/21 MD August Provider 909 [place] [address] Luis Camara MD Podiatry 08/16/21 CALV[place] Burnett [address] [place] [address] Sintia Lange, Assigned Surgical 09/08/21 PA-C Provider 909 [facility] 4TH [place] [address] Landon Warren MD Gastroenterology 11/21/21 MD Luis Fernando 6 [facility] 2A [place] [address] documented as of this encounter
--- OUTSIDE RECORDS SUMMARY | 2021-12-13 12:29 | XMS_ITS | Encounter Summary ---
:1980 Author Organization [place] Address [address] [place] [address] Care Team Providers Name Role Phone Stephani Pina SUPERVISOR FIBER LOCKING TRANSCRIPT CLERK Unavailable [phone] Juanis Levi Primary Care Provider Elsa Yeh RN Unavailable Unavailable Rogelio Treadwell MD Unavailable [phone] Luis Camara DPM Unavailable [phone] Reason for Visit Reason Comments Orders DME ORDER Encounter Details Date Type Department Care Team Description 08/30/2021 Documentation Only [facility] Camryn Christina (DME ORDER) Plastic and MD Lexie Reconstructive Surgery [address] [place] [address] 195 909 [place], [place] 4th Floor [address] [place], [place] [phone] [address] (Work) [phone] Social History Tobacco Use Types Packs/Day Years Used Date Smoking Tobacco: Former Cigarettes 0.3 10 Smokeless Tobacco: Never Comments: 5-8 cigarettes a day (hasn't s moked since in transitional care 07/23/21) Alcohol Use Standard Drinks/Week Comments Not Currently 0 (1 standard drink = 0.6 oz pure alcoho l) sober since 05/08 Sex Assigned at Date Recorded Female 01/14/2020 10:57 AM RESEARCH INVESTIGATOR COVID-19 Exposure Response Date Recorded In the last 10 days, have you been in contact with No / Unsu re 08/28/2021 9:08 AM CDT someone who was confirmed or suspected to have Coronavirus/COVID-19? documented as of this encounter Plan of Treatment Upcoming Encounters Date Type Specialty Care Team Description 12/20/2021 Office Visit Wound Care Ho[place] Luis Lex, DPM 909 [place] [address] (Wo rk) 01/21/2022 PRE VISIT Gastroenterology Landon Warren, *-*WANDAIN G RECORDS*-* MD Luis Fernando 516 [facility] 2A [place] [address] (Wo rk) 01/21/2022 Office Visit Gastroenterology Juanis Levi 24[address] [place] [address] Luis Fernando Miles MD 6 [facility] 2A [place], [place] 380185 documented as of this encounter Visit Diagnoses Diagnosis Other complications of procedures, not e lsewhere classified, subsequent encounter - Primary documented in this encounter Additional Health Concerns Infection Onset Date Last Indicated Resolved Time MRSAComment: Added from external infection. 11/07/201406/18 Assessment Noted Time PHQ-9 Depression Total Score: 2 12/15/2020 1:07 PM CDT documented as of this encounter Care Teams Intellectual Property Counsel Relationship Specialty Start Date End Date Juanis Levi PCP - General Addiction Medicine 06/29/21 [address] [place] [address] Stephani Pina, Assigned PCP 02/25/21 SUPERVISOR FIBER LOCKING TRANSCRIPT CLERK [address] [place], [place] [address] Elsa Yeh, Registered Nurse Infectious Diseases 07/25/21 RN Rogelio Treadwell Assigned Musculoskeletal 08/04/21 MD August Provider [address]09 [place] [address] Luis Camara MD Podiatry 08/16/21 CALVIN Burnett [address] [place] [address] documented as of this encounter
--- OUTSIDE RECORDS SUMMARY | 2021-12-13 12:29 | XMS_ITS | Encounter Summary ---
:1980 Author Organization [place] Address [address] [place] [address] Care Team Providers Name Role Phone Stephani Pina FARZANA SQUIRT 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 Unavailable [phone] Juanis Levi Primary Care Provider Elsa Yeh RN Unavailable Unavailable Rogelio Treadwell MD Unavailable [phone] Luis Camara DPM Unavailable [phone] Encounter Details Date Type Department Care Team [...] at Date Recorded Female 01/14/2020 10:57 AM INSTANT PRINT OPERATOR COVID-19 Exposure Response Date Recorded In the last 10 days, have you been in contact with No / Unsu re 08/28/2021 9:08 AM CDT someone who was confirmed or suspected to have Coronavirus/COVID-19? documented as of this encounter Plan of Treatment Upcoming Encounters Date Type Specialty Care Team Description 12/20/2021 Office Visit Wound Care Luis Camara, DPM 909 [place] [address] (Wo rk) 01/21/2022 PRE VISIT Gastroenterology Landon Warren, *-*WANDAIN G RECORDS*-* MD Luis Fernando [address] [place] [address] 2A [place], [place] 600385 (Wo rk) 01/21/2022 Office Visit Gastroenterology Juanis Levi [facility] [place] [phone] Luis Fernando Miles MD [address] [place] [address] [phone] documented as of this encounter Visit Diagnoses Not on filedocumented in this encounter Additional Health Concerns Infection Onset Date Last Indicated Resolved Time MRSAComment: Added from external infection. 11/07/201406/18 Assessment Noted Time PHQ-9 Depression Total Score: 2 12/15/2020 1:07 PM CDT documented as of this encounter Care Teams Cement Patcher Relationship Specialty Start Date End Date Juanis Levi PCP - General Addiction Medicine 06/29/[address] [place] [phone] Stephani Pina, Assigned PCP 02/25/21 COLLECTIONS SPECIALIST SQUIRT 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 [address] [phone] Elsa Yeh, Registered Nurse Infectious Diseases 07/25/21 RN Rogelio Treadwell Assigned Musculoskeletal 08/04/21 MD August Provider [address] [place] [address] Luis Camara MD Podiatry 08/16/21 CALV[place] Burnett [address] [place] [phone] documented as of this encounter
--- OUTSIDE RECORDS SUMMARY | 2021-12-13 12:29 | XMS_ITS | Encounter Summary ---
:1980 Author Organization [place] Address [address] [place] [address] Care Team Providers Name Role Phone Stephani Pina MANAGER GOVERNMENT SENIOR REGULATORY AFFAIRS SPECIALIST Unavailable [phone] Juanis Levi Primary Care Provider Elsa Yeh RN Unavailable Unavailable Rogelio Treadwell MD Unavailable [phone] Luis Camara DPM Unavailable [phone] Encounter Details Date Type Department Care Team Description 08/29/2021 Telephone [facility] Brittnee Scott, GENARO [address] [place], [place] [phone] Social History Tobacco Use Types Packs/Day Years Used Date Smoking Tobacco: Former Cigarettes 0.3 10 Smokeless Tobacco: Never Comments: 5-8 cigarettes a day (hasn't s moked since in transitional care 07/23/21) Alcohol Use Standard Drinks/Week Comments Not Currently 0 (1 standard drink = 0.6 oz pure alcoho l) sober since 05/08 Sex Assigned at Date Recorded Female 01/14/2020 10:57 AM SAFETY COUNSELOR COVID-19 Exposure Response Date Recorded In the [...] Care agency was not listed on AVS. Non Destructive Evaluation Manager called Vijaya Styles VM to patient that home care agency was [facility] and contact info for home care agency. Non Destructive Evaluation Manager also left personal office phone number, in case of follow up questions. Non Destructive Evaluation Manager did not receive any follow up calls. 08/27: Per report from [facility], ANGELIKA received a call from patient re: home care on 08/27. Non Destructive Evaluation Manager left Vm with home care agency to verify if patient has been seen by home care. 08/29: Received call return call from [facility]. Per Violeta at [facility] care agency visiting nurse and field manager have made multiple attempts to see patient. Patient has refused to make appointment for visits despite attempts. Reached out to mother to assist in scheduling as well, but this was also unsuccessful. Brittnee Scott Patient Trauma Doctor Acute Rehabilitation Unit/ Transitional Care Unit. documented in this encounter Plan of Treatment Upcoming Encounters Date Type Specialty Care Team Description 12/20/2021 Office Visit Wound Care Luis Camara, CALVIN [address] [place], [place] [phone] (Wo rk) 01/21/2022 PRE VISIT Gastroenterology Landon Warren, *-*WANDAIN G RECORDS*-* MD Luis Fernando [address] [place] [address] [phone] (Wo rk) 01/21/2022 Office Visit Gastroenterology Juanis Levi [address]50 [place] [phone] Luis Fernando Miles MD [address] [place] [address] [phone] documented as of this encounter Visit Diagnoses Not on filedocumented in this encounter Additional Health Concerns Infection Onset Date Last Indicated Resolved Time MRSAComment: Added from external infection. 11/07/201406/18 Assessment Noted Time PHQ-9 Depression Total Score: 2 12/15/2020 1:07 PM CDT documented as of this encounter Care Teams Gardener Relationship Specialty Start Date End Date Juanis Levi PCP - General Addiction Medicine 06/29/21 [facility] [place] [phone] Stephani Pina, Assigned PCP 02/25/21 MANAGER GOVERNMENT SENIOR REGULATORY AFFAIRS SPECIALIST [address] [address] Elsa Yeh, Registered Nurse Infectious Diseases 07/25/21 RN Rogelio Treadwell Assigned Musculoskeletal 08/04/21 MD August Provider [address] [place] [address] Luis Camara MD Podiatry 08/16/21 CALVIN Burnett [address] [place] [address] documented as of this encounter
--- OUTSIDE RECORDS SUMMARY | 2021-12-13 12:29 | XMS_ITS | Encounter Summary ---
:1980 Author Organization [place] Address [address] [place] [address] Care Team Providers Name Role Phone Stephani Pina ENTRY LEVEL RECRUITER GELATIN DYNAMITE PACKING OPERATOR Unavailable [phone] Juanis Levi Primary Care Provider Elsa Yeh RN Unavailable Unavailable Rogelio Treadwell MD Unavailable [phone] Luis Camara DPM Unavailable [phone] Encounter Details Date Type Department Care [...] Date Recorded Female 01/14/2020 10:57 AM SENIOR RISK ANALYST COVID-19 Exposure Response Date Recorded In the last 10 days, have you been in contact with No / Unsu re 08/22/2021 9:42 AM CDT someone who was confirmed or suspected to have Coronavirus/COVID-19? documented as of this encounter Plan of Treatment Upcoming Encounters Date Type Specialty Care Team Description 12/20/2021 Office Visit Wound Care Luis Camara, DPM 909 [place] [address] (Wo rk) 01/21/2022 PRE VISIT Gastroenterology Landon Warren, *-*WANDAIN G RECORDS*-* MD Luis Fernando [address] [place] [address] 2A [place], [place] 088065 (Wo rk) 01/21/2022 Office Visit Gastroenterology Juanis Levi [facility] [place] [phone] Luis Fernando Miles MD [address] [place] [address] 767395 documented as of this encounter Visit Diagnoses Not on filedocumented in this encounter Additional Health Concerns Infection Onset Date Last Indicated Resolved Time MRSAComment: Added from external infection. 11/07/201406/18 Assessment Noted Time PHQ-9 Depression Total Score: 2 12/15/2020 1:07 PM CDT documented as of this encounter Care Teams Recreational Director Relationship Specialty Start Date End Date Juanis Levi PCP - General Addiction Medicine 06/29/[address] [place] [phone] Stephani Pina, Assigned PCP 02/25/21 ENTRY LEVEL RECRUITER GELATIN DYNAMITE PACKING OPERATOR [address] [address] Elsa Yeh, Registered Nurse Infectious Diseases 07/25/21 RN Rogelio Treadwell Assigned Musculoskeletal 08/04/21 MD August Provider [address] [place] [address] Luis Camara MD Podiatry 08/16/21 CALVIN Burnett [address] [place] [address] 623425 documented as of this encounter
--- OUTSIDE RECORDS SUMMARY | 2021-12-13 12:29 | XMS_ITS | Encounter Summary ---
:1980 Author Organization [place] Address [address] [place] [address] Care Team Providers Name Role Phone Stephani Pina PRODUCTION GRAPHIC DESIGNER CORSET MAKER Unavailable [phone] Juanis Levi Primary Care Provider Elsa Yeh RN Unavailable Unavailable Rogelio Treadwell MD Unavailable [phone] Luis Camara DPM Unavailable [phone] Sintia Lange PA-C Unavailable Reason for Visit Reason Onset Date Comments Appointment 11/15/2021 Encounter Details Date Type Department Care Team Description 11/15/2021 Telephone [facility] Brittnee Cyr LPN Appointment (/) [place] [phone] Social History Tobacco Use Types Packs/Day Years Used Date Smoking Tobacco: Every Day Cigarettes 0.3 10 Smokeless Tobacco: Never Comments: 5-8 cigarettes a day (hasn't s moked since in transitional care 07/23/21) Alcohol Use Standard Drinks/Week Comments Not Currently 0 (1 standard drink = 0.6 oz pure alcoho l) sober since 05/08 Sex Assigned at Date Recorded Female 01/14/2020 10:57 AM 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 documented in this encounter Plan of Treatment Upcoming Encounters Date Type Specialty Care Team Description 12/20/2021 Office Visit Wound Care Luis Camara, CALVIN [address]09 [place] [address] (Wo rk) 01/21/2022 PRE VISIT Gastroenterology Landon Warren, *-*HEATHER G RECORDS*-* MD Luis Fernando [address] [place] [address] (Wo rk) 01/21/2022 Office Visit Gastroenterology Juanis Levi [address] [place] [phone] Luis Fernando Miles MD [address] [place] [address] 714855 documented as of this encounter Visit Diagnoses Not on filedocumented in this encounter Additional Health Concerns Infection Onset Date Last Indicated Resolved Time MRSAComment: Added from external infection. 11/07/201406/18 Assessment Noted Time PHQ-9 Depression Total Score: 8 10/18/2021 3:15 PM CDT documented as of this encounter Care Teams Bag Machine Operator Relationship Specialty Start Date End Date Juanis Levi PCP - General Addiction Medicine 06/29/21 [address]50 [place] [address] Stephani Pina, Assigned PCP 02/25/21 PRODUCTION GRAPHIC DESIGNER CORSET MAKER [address] [place] [address] Elsa Yeh, Registered Nurse Infectious Diseases 07/25/21 RN Rogelio Treadwell Assigned Musculoskeletal 08/04/21 MD August Provider [address] [place] [address] Luis Camara MD Podiatry 08/16/21 CALVIN Burnett [address] [place] [address] Sintia Lange, Assigned Surgical 09/08/21 PA-C Provider [address] [place] [address] documented as of this encounter
--- OUTSIDE RECORDS SUMMARY | 2021-12-13 12:29 | XMS_ITS | Encounter Summary ---
:1980 Author Organization [place] Address [address] [place] [address] Care Team Providers Name Role Phone Stephani Pina BUTT MAKER APPLIANCE ASSEMBLER Unavailable [phone] Juanis Levi Primary Care Provider Elsa Yeh RN Unavailable Unavailable Rogelio Treadwell MD Unavailable [phone] Luis Camara DPM Unavailable [phone] Reason for Visit Reason Comments Surgical Followup 2 week follow up -- DOS 08/15 Encounter Details Date Type Department Care Team Description 08/28/2021 Office Visit [facility] Sintia Lange, S/P fl ap graft Plastic and PA-C (Primary Dx) Reconstructive Surgery 909 [facility] 4TH FLOOR 909 [place], [place] 4th [facility] [address] [place], [place] [phone] (Work) [phone] Social History Tobacco Use Types Packs/Day Years Used Date Smoking Tobacco: Former Cigarettes 0.3 10 Smokeless Tobacco: Never Comments: 5-8 cigarettes a day (hasn't s moked since in transitional care 07/23/21) Alcohol Use Standard Drinks/Week Comments Not Currently 0 (1 standard drink = 0.6 oz pure alcoho l) sober since 05/08 Sex Assigned at Date Recorded Female 01/14/2020 10:57 AM WAITSTAFF CAPTAIN COVID-19 Exposure Response Date Recorded In [...] Visit Wound Care Luis Camara, CALVIN [address] [place] [address] (Wo rk) 01/21/2022 PRE VISIT Gastroenterology Landon Warren, *-*WANDAIN G RECORDS*-* MD Luis Fernando [address] [place] [address] (Wo rk) 01/21/2022 Office Visit Gastroenterology Juanis eLvi [address]50 [place] [phone] Luis Fernando Miles MD [address] [place] [address] documented as of this encounter Visit Diagnoses Diagnosis S/P flap graft - Primary Other postprocedural status documented in this encounter Additional Health Concerns Infection Onset Date Last Indicated Resolved Time MRSAComment: Added from external infection. 11/07/2014 05/02/2021 Assessment Noted Time PHQ-9 Depression Total Score: 2 12/15/2020 1:07 PM CDT documented as of this encounter Care Teams Elevators Inspector Relationship Specialty Start Date End Date Juanis Levi PCP - General Addiction Medicine 06/29/[address] [place] [phone] Stephani Pina, Assigned PCP 02/25/21 BUTT MAKER APPLIANCE ASSEMBLER [address] [place] [address] Elsa Yeh, Registered Nurse Infectious Diseases 07/25/21 RN Rogelio Treadwell Assigned Musculoskeletal 08/04/21 MD August Provider 909 [place] [address] Luis Camara MD Podiatry 08/16/21 CALVIN Burnett [address]09 [place] [address] documented as of this encounter
--- OUTSIDE RECORDS SUMMARY | 2021-12-13 12:29 | XMS_ITS | Encounter Summary ---
:1980 Author Organization [facility] Address [address] [place] [address] Care Team Providers Name Role Phone Stephani Pina APRN HEALTH CARE ASSISTANT Unavailable [phone] Juanis Levi Primary Care Provider Elsa Yeh RN Unavailable Unavailable Rogelio Treadwell MD Unavailable [phone] Luis Camara DPM Unavailable [phone] Sintia Lange PA-C Unavailable Luis Fernando Miles MD Unavailable [phone] Reason for Visit Reason Onset Date Comments Call Back 12/03/2021 Questions Encounter Details Date Type Department Care Team Description 12/03/2021 Telephone [facility] Wound Luis Camara all Back (Questions ) Clinic Meghan Burnett DPM [address] [facility] [address] 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 documented as of this encounter Miscellaneous Notes Telephone Encounter - Loan Melgar - 12/03/2021 12:40 PM CDT [facility] Call Center Phone Message May a detailed message be left on voicemail: yes Reason for Call: Other: Per pt would like to speak with RN. Per pt has a few questions. please and thank you! Action Taken: Message routed to: [facility] ([facility]): Wound Travel Screening: Not Applicable documented in this encounter Plan of Treatment Upcoming Encounters Date Type Specialty Care Team Description 12/20/2021 Office Visit Wound Care Luis Camara, [place] [address] [place], [place] [phone] (Reinaldo rk) 01/21/2022 PRE VISIT Gastroenterology Landon Warren, *-*WANDAIN G RECORDS*-* MD Luis Fernando [address] [place] [phone] (Wo rk) 01/21/2022 Office Visit Gastroenterology Juanis Levi [address] [place] [phone] Luis Fernando Miles MD [address] [place] [address] [phone] documented as of this encounter Visit Diagnoses Not on filedocumented in this encounter Additional Health Concerns Infection Onset Date Last Indicated Resolved Time MRSAComment: Added from external infection. 11/07/201406/18 Assessment Noted Time PHQ-9 Depression Total Score: 3 11/19/2021 11:45 AM CD T documented as of this encounter Care Teams Automobile Upholstery Trim Installer Relationship Specialty Start Date End Date Juanis Levi PCP - General Addiction Medicine 06/29/21 [address] [place] [phone] Stephani Pina, Assigned PCP 02/25/21 [employer] SUPERVISOR HEALTH CARE ASSISTANT [address] [place] [address] Elsa Yeh, Registered Nurse Infectious Diseases 07/25/21 RN Rogelio Treadwell Assigned Musculoskeletal 08/04/21 MD August Provider [address] [place] [address] Luis Camara MD Podiatry 08/16/21 CALVIN Burnett [address] [place], [place] [phone] Sintia Lange, Assigned Surgical 09/08/21 PA-C Provider [address] [facility] 4TH [address]LO[address] [place], [place] [address] Landon Warren MD Gastroenterology 11/21/21 MD Luis Fernando [address] [place] [address] [address] [place] [address] documented as of this encounter
--- OUTSIDE RECORDS SUMMARY | 2021-12-13 12:29 | XMS_ITS | Encounter Summary ---
:1980 Author Organization [facility] Address [address] [place] [address] Care Team Providers Name Role Phone Stephani Pina SLAB INSPECTOR DYE BOX OPERATOR Unavailable [phone] Juanis Levi Primary Care Provider Elsa Yeh RN Unavailable Unavailable Rogelio Treadwell MD Unavailable [phone] Luis Camara DPM Unavailable [phone] Sintia Lange PA-C Unavailable Luis Fernando Miles MD Unavailable [phone] Reason for Visit Reason Comments Leg Pain Encounter Details Date Type Department Care Team Description 11/30/[address] 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 COVID-19 Exposure Response Date Recorded In the [...] MG EC tabletIndications: mg) by mouth 3 Alcohol use disorder, times daily severe, dependence (H) acetaminophen (TYLENOL) Take 3 tablets (975 40 tablet 0 325 MG tabletIndications: mg) by mouth every Osteomyelitis of right 8 hours as needed ankle, unspecified type for mild pain (H) apixaban ANTICOAGULANT Take 5 mg by mouth 0 (ELIQUIS) 5 MG tablet 2 times daily aspirin (ASA) 81 MG EC [...] 04/2021 MG tabletIndications: mg) by mouth 2 Anxiety times daily as needed (anxiety) diclofenac (VOLTAREN) 1 % Apply 2 g topically 200 g 0 0 08/21/2021 topical gelIndications: 2 times daily Acute pain of left knee divalproex sodium Take 1 tablet (500 0 11/19/2021 extended-release mg) by mouth daily (DEPAKOTE ER) 500 MG 24 hr tabletIndications: Alcohol use disorder, severe, dependence (H) fexofenadine (ELOISE) Take 1 tablet (180 0 07/21 180 MG tabletIndications: mg) by mouth daily irritant dermatitis as needed for allergies folic acid (FOLVITE) 1 MG Take 1 tablet (1 90 tablet 1 04/2021 tabletIndications: mg) by mouth daily Alcohol use disorder, severe, dependence (H) folic acid (FOLVITE) 1 MG Take 1 tablet (1 90 tablet 1 06/2021 tabletIndications: Folate mg) by mouth daily Deficiency Anemia hydrOXYzine (ATARAX) 25 Take 1 tablet (25 90 tablet 0 11/19 MG tabletIndications: mg) by mouth every Anxiety, Pruritus 8 hours as needed for anxiety lactulose (CEPHULAC) 20 Take 1 packet (20 60 Units 0 08/21 GM packetIndications: g) by mouth 2 times Constipation daily levothyroxine Take 1 tablet (125 90 tablet 0 08/23/2021 (SYNTHROID/LEVOTHROID) mcg) by mouth every 125 MCG morning tabletIndications: Hypothyroidism lidocaine (XYLOCAINE) 4 % Apply topically [...] skin every 24 patchIndications: hours Nicotine Dependence nicotine polacrilex Place 1 each (4 mg) 240 each 022 (NICORETTE) 4 MG inside cheek every gumIndications: Tobacco hour as needed for use disorder smoking cessation ondansetron (ZOFRAN ODT) Take 1 tablet (4 15 tablet 0 10/18 4 MG ODT tabIndications: mg) by mouth every Nausea 8 hours as needed pantoprazole (PROTONIX) 0 11/15/2021 40 MG EC tabletIndications: Alcoholic gastritis with hemorrhage, [...] by mouth daily capsuleIndications: Generalized Anxiety Disorder buprenorphine (SUBUTEX) 8 Place 1 tablet (8 90 tablet 0 04/202112/12/2021 MG SUBL sublingual mg) under the tabletIndications: Opioid tongue 3 times Dependence daily documented as of this encounter ED Notes [...] any SOB Triage Assessment Row Name 11/30/21 1412 Triage Assessment (Adult) Airway WDL WDL Respiratory WDL Respiratory WDL WDL Cardiac WDL Cardiac WDL WDL documented in this encounter Plan of Treatment Upcoming Encounters Date Type Specialty Care Team Description 12/20/2021 Office Visit Wound Care Luis Camara DPM [address] [place], [place] [phone] (Wo rk) 01/21/2022 PRE VISIT Gastroenterology Landon Warren, *-*WANDAIN G RECORDS*-* MD Luis Fernando [address] [place] [address] [phone] (Wo rk) 01/21/2022 Office Visit Gastroenterology Juanis Levi [address] [place] [address] Luis Fernando Miles MD [address] [place] [address] [phone] documented as of this encounter Visit Diagnoses Not on filedocumented in this encounter Additional Health Concerns Infection Onset Date Last Indicated Resolved Time MRSAComment: Added from external infection. 11/07/201406/18 Assessment Noted Time PHQ-9 Depression Total Score: 3 11/19/2021 11:45 AM CD T documented as of this encounter Care Teams Home Worker Relationship Specialty Start Date End Date Juanis Levi PCP - General Addiction Medicine 06/29/[address] [place] [phone] Stephani Pina, Assigned PCP 02/25/21 SLAB INSPECTOR DYE BOX OPERATOR [address] [place], [place] [address] Elsa Yeh, Registered Nurse Infectious Diseases 07/25/21 Rogelio Wilson Assigned Musculoskeletal 08/04/21 MD August Provider [address] [place] [phone] Luis Camara MD Podiatry 08/16/21 CALVIN Burnett [address] [place] [address] Sintia Lange, Assigned Surgical 09/08/21 PA-C Provider [address] [address] Landon Warren MD Gastroenterology 11/21/21 MD Luis Fernando 6 [facility] [address] [place] [address] documented as of this encounter
--- OUTSIDE RECORDS SUMMARY | 2021-12-13 12:29 | XMS_ITS | Clinical Summary ---
:1980 Author Organization [facility] Address [address] [place] [address] Care Team Providers Name Role Phone Stephani Pina FARZANA TENNIS COACH Unavailable [phone] Juanis Levi Primary Care Provider Elsa Yeh RN Unavailable Unavailable Rogelio Treadwell MD Unavailable [phone] Luis Camara DPM Unavailable [phone] Sintia Lange PA-C Unavailable Luis Fernando Miles MD Unavailable [phone] Allergies No known active allergies Medications [...] 2 Alcohol use disorder, severe, dependence (H) cloNIDine Take 1 tablet 60 tablet 0 [...] daily Alcohol use disorder, severe, dependence (H) buprenorphine Place 1 tablet 15 tablet 0 A ctive (SUBUTEX) 8 MG SUBL (8 mg) under 2 sublingual the tongue 3 tabletIndications: times daily Opioid Dependence naloxone (NARCAN) 4 [place] 1 spray 0.2 mL 11 Discontinued MG/0.1ML [...] ns: Alcoholic gastritis with hemorrhage, unspecified chronicity buprenorphine Place 1 tablet 90 tablet 0 12/13/19 D iscontinued (SUBUTEX) 8 MG SUBL (8 mg) under 2 22 (Reorder) sublingual the tongue 3 tabletIndications: times daily Opioid Dependence Active Problems Problem Noted Date Non-healing surgical wound, subsequent encounter 07/31 Overview: Added automatically from request for rohan adams [id number] Physical deconditioning 07/23/2021 Osteomyelitis of right ankle, [...] rounds with Dr Alma Leyva. Referral to fund accounting manager placed. Family history of SIDS (sudden syndrome) [...] Date Recorded Female 01/14/2020 10:57 AM CLINICAL BIOSTATISTICS DIRECTOR COVID-19 Exposure Response Date Recorded In [...] Visit Wound Care Luis Camara, DPM [address] [place] [address] (Wo rk) 01/21/2022 PRE VISIT Gastroenterology Landon Warren, *-*INCOMIN G RECORDS*-* MD Luis Fernando [address] [place] [address] (Wo rk) 01/21/2022 Office Visit Gastroenterology Juanis Levi [address] [place] [address] Luis Fernando Miles MD [address] [place] [address] Health Maintenance Due Date Last Done Comments [...] to Confirmation, Urine (11/19/2021 1:39 PM CDT) [facility] Method Time Signature Ethyl Negative Cutoff 500 11/20/2021 [facility] Glucuronide ng/mL 9:46 PM CDT Urine [...] tandem mass spectr ometry (LC-MS/MS). Performed By: [employer] [address] [place] [address] Vocational Rehabilitation Administrator: Willian Swain MD, PhD Specimen Anatomical Collection Method Collection Time Receive d Time (Source) Location / / Volume Laterality Urine URINE SPECIMEN Non-blood 11/19/2021 1:39 PM 022 2:03 OBTAINED BY CLEAN Collection / CDT PM CDT CATCH PROCEDURE / Unknown Unknown Juanis Camryn Levi LAB - URINE ORDERABLES Performing Organization Address City/State/ZIP Code Phon e Number [employer] [place], [place] [phone] [address] [facility] [address] from Last 3 Months Additional Health Concerns Infection Onset Date Last Indicated MRSAComment: Added from external infection. 11/07/2014 07/07/2021 Insurance Payer Benefit Plan / Subscriber ID Effective Dates Phone Addre ss Type Group [facility] [id number] 2021-Present [phone] [address] [place] [address] Steph[facility] [address] (Home) [place], [place] [phone] [address] (Work) Advance Directives For more information, please contact: [phone] Latest Code Status on File Code Status [...] with patient/legal dec ision maker Care Teams Rubber Roller Grinder Relationship Specialty Start Date End Date Juanis Levi PCP - General Addiction Medicine 06/29/21 [facility] [place] [phone] Stephani Pina, Assigned PCP 02/25/21 JOINERY MACHINIST TENNIS COACH [address] [facility] [address] [place] [address] Elsa Yeh, Registered Nurse Infectious Diseases 07/25/21 RN Rogelio Treadwell Assigned Musculoskeletal 08/04/21 MD August Provider [address] [place] [phone] Luis Camara MD Podiatry 08/16/21 CALVIN Burnett [address] [place] [address] Sintia Lange, Assigned Surgical 09/08/21 PA-C Provider [address] [place] [address] [address] [place], [place] [phone] Lnadon Warren MD Gastroenterology 11/21/21 MD Luis Fernando [address] [facility] [address] [place] [address]
--- OUTSIDE RECORDS SUMMARY | 2021-12-13 12:31 | XMS_ITS | Encounter Summary ---
:1980 Author Organization [facility] Address Formerly [facility] [address] Care Team Providers Name Role Phone Stephani Pina SWATCH PASTER SPREAD CUTTER Unavailable [phone] Juanis Mckenzie Primary Care Provider Elsa Yeh RN Unavailable Unavailable Rogelio Treadwell MD Unavailable [phone] Luis Camara DPM Unavailable [phone] Reason for Referral Home Health Therapies & Aides (Routine: Next available opening) Specialty Diagnoses / Procedures Referred By Contact Refer red To Contact [facility] TRANSITIONAL CARE [address] [place] [address] [phone] Referral ID Status Reason Start Date Expiration Date Visits Requ ested Visits Authorized onsultation (Routine: Next available opening) - Pending Review Specialty Diagnoses / Procedures Referred By Contact Refer red To Contact Dermatology Diagnoses Steroid-induced acne Eros Recinos MD [address] [place] [address] [phone] Referral ID Status Reason Start Date Expiration Date Visits V isits Requested Authorized [id number] Pending 08/22/2021 08/22/2022 1 1 Review Reason for Visit Auth/Cert Specialty Diagnoses / Procedures Referred By Contact Refer red To Contact Rehabilitation Tr Transitional Care [address] [address] Phone: Referral ID Status Reason Start Date Expiration Date Visits Requ ested Visits Authorized [id number] 1 1 Encounter Details Date Type Department Care Team Description 07/23/2021 - [facility] Bethanie Dowd MD [address] [facility] [address] [place] [address] Osteomyelitis of right ankle, unspecifie d type (H) (Primary Dx); 08/22/2021 Encounter Transitional Care La Nena Babb MD [address] [place] [address] Alcohol use disorder, severe, dependence (H); Unit [place] Anxiety; 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 Transitional [facility] Hospitalist Discharge Summary Date of Admission: 07/23/2021 [...] depression, anxiety, and tobacco abuse. She was??admitted??to [facility] on 07/06/21 from [facility] for treatment of right ankle osteomyelitis [...] superficial soft tissue edema.? --- Transferred to [facility] on 07/06/21 --- S/p calcaneal hardware removal??and [...] at OSH. --- Wound culture here at [facility] was positive for 1+ staph simulans on [...] ankle pain and immobility --- Controlled. --- Continue??ELECTRONIC TESTER??Suboxone 8mg tid, scheduled APAP 975mg TID, Gabapentin [...] allergenic polyurethane foam dressings (Mepitac tape, Sorbiview, [id number]) over occlusive adhesive semipermeable gauze dressings; [facility] can provide more detailed recommendations --- [...] chronic?? Alcohol use disorder.?? --- HCV quant [id number]??at OSH. --- Continue Lactulose??20 g bid --- [...] CONSULT OCCUPATIONAL THERAPY ADULT IP CONSULT SPEECH SALES SUPPORT ADVISOR ADULT IP CONSULT DERMATOLOGY IP CONSULT WOUND OSTOMY CONTINENCE NURSE IP CONSULT Code Status Full Code Time Spent on this Encounter I, Shamar Hill MD, personally saw the patient today and spent greater than 30 minutes discharging this patient. Shamar Hill MD [facility] TRANSITIONAL CARE [address] [address] Physical Exam Vital Signs: Temp: 97.8 ??F [...] bearing as tolerated on rt Foot Adult [facility] Follow-up and recommended labs and tests [...] steroid acne in 1 week Appointments on [place] and/or [facility] (with [facility] or [facility] provider or service). Call [phone] if you haven't heard regarding these appointments [...] Qty: 90 tablet, Refills: 0 Comments: JAMES: [id number] Associated Diagnoses: Opioid use disorder, severe, in [...] CDT SW was told at [facility], pt was leaving. Doctor told pt okay for discharge today. Pt would not stay any longer. Pt started calling transportation but didn't know the address. SW called [employer] transport. They set up [facility] [employer]. [phone]. Pt asked if PT ordered leg cart. [...] Discharge Disposition: Home . Discharge Services: Home PT/OT/efficiency analyst Supplies: Meds from TCU went home with pt. Pt will have to get leg cart if pt really needsit. Discharge Transportation: [facility] [employer]. [phone] JACKIE redid Bims/ [address] and [address] [facility], Transitional Care Unit Social Work [facility] [address] [place] [address] (PH) [phone] Smita Stone, PT - 08/21/2021 6:06 PM CDT Physical Therapy Discharge Summary Reason for therapy discharge: Poor tolerance for therapy, all functional needs have been met at this time pending further mobilityclearance Progress towards therapy goal(s). See goals on Care Plan in [facility] electronic health record for goal details. Goals partially met. Barriers to achieving goals: limited tolerance for therapy and weight bearing status. Therapy recommendation(s): Continued therapy is recommended. Rationale/Recommendations: Once pt has discharged to home setting and weight bearing restrictions are lifted further therapy may be warrented to address fucntional deficits pending pt participation.. Brenana Newton - 08/21/2021 5:13 PM CDT SW went to see pt. Pt hasn't heard if letter to [facility] was received or not. Pt called while SW wasin the room. SW said all are working on pt's discharge. As soon as HC is found and transportation islined up then pt can go. Also, pt has to go to walkin clinic for meds. Pt understood this. TUSHAR Castaneda [facility], Transitional Care Unit Social Work [address] [place] [address], 4th [place] [address] () [phone] LIOT Eros Recinos MD - 08/20/2021 10:13 [...] discharge on 08/22 Dr [facility] ( [facility]) Pager: [phone] Smita Stone, PT - 08/20/2021 9:17 AM [...] end on 08/21 Dr Lizet Ibanez MD, [facility] [address] Hospitalist ( Internal medicine) Pager: [phone] LIOT Eros Recinos MD - 08/18/2021 11:05 [...] X [address] Liz[facility] ( Internal medicine) Pager: [phone] Marycarmen Cross PT - 08/17/2021 4:10 PM [...] [facility]. Put on there dates and when expected return. SW sent fax and sent email. TUSHAR Castaneda [facility], Transitional Care Unit Social Work [address] [place] [address], 4th [place] [address] (PH) [phone] Eros Recinos MD - 08/17/2021 10:50 AM [...] Recinos MD - 08/16/2021 10:[address] [facility] Transitional Care Medicine Progress Note - Hospitalist Service Date of Admission: 07/23/2021 Assessment & Plan Stephani King is a 40 yo female??w/ h/o opioid use d/o, alcohol use disorder,??HCV, hypothyroidism, depression, anxiety, and tobacco abuse. She was??admitted to [facility] on 07/06/21 [facility] for treatment of right ankle [...] superficial soft tissue edema.? --- Transferred to [facility] on 07/06/21 --- S/p calcaneal hardware removal??and [...] at OSH. --- Wound culture here at [facility] was positive for 1+ staph simulans on [...] ankle pain and immobility --- Controlled. --- Continue??ELECTRONIC TESTER??Suboxone 8mg tid, scheduled APAP 975mg TID, Gabapentin [...] allergenic polyurethane foam dressings (Mepitac tape, Sorbiview, [id number]) over occlusive adhesive semipermeable gauze dressings; WOC [...] chronic?? Alcohol use disorder.?? --- HCV quant 960237??at OSH. --- Continue Lactulose 20 g bid [...] team . Shamar Hill MD Hospitalist Service [facility] Transitional Care Securely message with the [employer] Web Console (learn more here) Text page via [employer] Paging/Directory Interval History Patent with new onset [...] from the original note were not included. [facility] Nurse Inpatient Assessment Today's Assessment: Right lateral [...] control prior to re-starting VAC. Marilu Mar, PROVIDER RELATIONS ADVOCATE with Ortho will order 4% topical lidicaine [...] 20 Lisa Chandler RN, CWOCN Dept. Pager: [phone] Dept. Office Number: [phone] Eros Recinos MD - 08/15/2021 3:29 PM [...] MD, FACP Hospitalist ( Internal medicine) Pager: [phone] - 08/14/2021 2:03 PM [...] depression, anxiety, and tobacco abuse. She was??admitted??to [facility] on 07/06/21 as a direct transfer from [facility] for treatment of right ankle osteomyelitisby [...] Aparicio MS, RDN, LDN TCU RD pager: [phone] Eros Recinos MD - 08/14/2021 2:00 PM [...] until [address] Liz[facility] ( Internal [facility]) Pager: [phone] Muriel Alfaro - 08/13/2021 12:50 PM CDT Pt checked with land, who did not receive lease faxed on 08/07/21. SW re-faxed lease to fax #: [phone], per pt's request. SW encouraged pt to confirm if lease wasreceived by land again. SW assured pt that if fax did not go through, then [facility] once obtained. Pt agreed. CORBIN Guaman, BRIDGE IRONWORKER HELPER Float Adult Acute Care Spinning Room Worker Pager: [phone] Elizabeth Howell MD - 08/13/2021 9:[address] [facility] Transitional Care Medicine Progress Note - Hospitalist Service Date of Admission: 07/23/2021 Assessment & Plan Stephani King is a 40 yo female??w/ h/o opioid use d/o, alcohol use disorder,??HCV, hypothyroidism, depression, anxiety, and tobacco abuse. She was??admitted to [facility] on 07/06/21 as adirect transfer from [facility] for treatment of right ankle osteomyelitisby [...] superficial soft tissue edema.? --- Transferred to [facility] on 07/06/21 --- S/p calcaneal hardware removal??and??I&D [...] at OSH. --- Wound culture here at [facility] was positive for 1+ staph simulans on [...] ankle pain and immobility --- Controlled. --- Continue??ELECTRONIC TESTER??Suboxone 8mg tid, scheduled APAP 975mg TID, Gabapentin [...] allergenic polyurethane foam dressings (Mepitac tape, Sorbiview, [id number]) over occlusive adhesive semipermeable gauze dressings; [facility] can provide more detailed recommendations --- [...] chronic?? Alcohol use disorder.?? --- HCV quant 412999??at OSH. --- Continue Lactulose 20 g bid [...] team . Elizabeth Howell MD Hospitalist Service [facility] Transitional Care Securely message with the [employer] Console (learn more here) Text page via [employer] Paging/Directory Interval History Rash has been stable. [...] Mendes MD - 08/12/2021 1:[address] [facility] Transitional Care Medicine Progress Note - Hospitalist Service Date of Admission: 07/23/2021 Assessment & Plan Stephani King is a 40 yo female??w/ h/o opioid use d/o, alcohol use disorder,??HCV, hypothyroidism, depression, anxiety, and tobacco abuse. She was??admitted to [facility] on 07/06/21 [facility] for treatment of right ankle [...] superficial soft tissue edema.? --- Transferred to [facility] on 07/06/21 --- S/p calcaneal hardware removal??and [...] at OSH. --- Wound culture here at [facility] was positive for 1+ staph simulans on [...] ankle pain and immobility --- Controlled. --- Continue??ELECTRONIC TESTER??Suboxone 8mg tid, scheduled APAP 975mg TID, Gabapentin [...] allergenic polyurethane foam dressings (Mepitac tape, Sorbiview, [id number]) over occlusive adhesive semipermeable gauze dressings; WO [...] chronic?? Alcohol use disorder.?? --- HCV quant [id number]??at OSH. --- Continue Lactulose 20 g bid [...] care team . Kayden Mendes MD Hospitalist [facility] Transitional Care Securely message with the [employer] Console (learn more here) Text page via [facility] Paging/Directory Interval History Rash has been [...] Mendes MD - 08/08/2021 10:[address] [facility] Transitional Care Medicine Progress Note - Hospitalist Service Date of Admission: 07/23/2021 Assessment & Plan Stephani King is a 40 yo female??w/ h/o opioid use d/o, alcohol use disorder,??HCV, hypothyroidism, depression, anxiety, and tobacco abuse. She was??admitted to [facility] on 07/06/21 [facility] for treatment of right ankle [...] superficial soft tissue edema.? --- Transferred to [facility] on 07/06/21 --- S/p calcaneal hardware removal??and [...] at OSH. --- Wound culture here at [facility] was positive for 1+ staph simulans on [...] ankle pain and immobility --- Controlled. --- Continue??ELECTRONIC TESTER??Suboxone 8mg tid, scheduled APAP 975mg TID, Gabapentin [...] allergenic polyurethane foam dressings (Mepitac tape, Sorbiview, [id number]) over occlusive adhesive semipermeable gauze dressings; [facility] can provide more detailed recommendations --- [...] chronic?? Alcohol use disorder.?? --- HCV quant 975637??at OSH. --- Continue Lactulose 20 g bid [...] team . Kayden Mendes MD Hospitalist Service [facility] Transitional Care Securely message with the [employer] Web Console (learn more here) Text page via [employer] Paging/Directory Interval History Reports itching. Rash has [...] from the original note were not included. [facility] Nurse Inpatient Assessment Today's Assessment: Right lateral [...] control prior to re-starting VAC. Marilu Mar, PROVIDER RELATIONS ADVOCATE with Ortho will order 4% topical lidicaine [...] dry. Cut piece of Hydrofera blue (# [id number]) to size of wound. Moisten HFB with [...] Emily Macias RN BSN CWOCN Dept. Pager: [phone] Dept. Office Number: [phone] Breanna Newton - 08/07/2021 5:24 PM CDT SW checked in with pt. Pt didn't have the whole lease signed. Pt signed lease while SW was there. SWfaxed lease to [phone]. SW told pt to call landlord tomorrow to make sure lease was in. If not then let SW know to resend lease. TUSHAR Castaneda [facility], Transitional Care Unit Social Work [address] [place] [address], 4th [place] [address] () [phone] Kayden Mendes MD - 08/06/2021 10:44 AM CDT [facility] Transitional Care Brief Note Stephani King is [...] Howell MD - 08/05/2021 9:[address] [facility] Transitional Care Medicine Progress Note - Hospitalist Service Date of Admission: 07/23/2021 Assessment & Plan Stephani King is a 40 yo female??w/ h/o opioid use d/o, alcohol use disorder,??HCV, hypothyroidism, depression, anxiety, and tobacco abuse. She was??admitted to [facility] on 07/06/21 [facility] for treatment of right ankle [...] superficial soft tissue edema.? --- Transferred to [facility] on 07/06/21 --- S/p calcaneal hardware removal??and [...] at OSH. --- Wound culture here at [facility] was positive for 1+ staph simulans on [...] ankle pain and immobility --- Controlled. --- Continue??ELECTRONIC TESTER??Suboxone 8mg tid, scheduled APAP 975mg TID, Gabapentin [...] allergenic polyurethane foam dressings (Mepitac tape, Sorbiview, [id number]) over occlusive adhesive semipermeable gauze dressings; WOC [...] chronic?? Alcohol use disorder.?? --- HCV quant 059445??at OSH. --- Continue Lactulose 20 g bid [...] team . Elizabeth Howell MD Hospitalist Service [facility] Transitional Care Securely message with the [employer] Console (learn more here) Text page via [employer] Paging/Directory Interval History Uneventful night. No complaints. [...] send esperanza milanfreddy. TUSHAR Castaneda [facility], Transitional Care Unit Social Work [address] 4th [place] [address] (ph) [phone] Lisa Chandler RN - 08/02/2021 12:33 PM CDT Images from the original note were not included. [facility] WO Nurse Inpatient Assessment Today's Assessment: [...] control prior to re-starting VAC. Marilu Mar, PROVIDER RELATIONS ADVOCATE with Ortho will order 4% topical lidicaine [...] dry. Cut piece of Hydrofera blue (# [id number]) to size of wound. Moisten HFB with [...] 20 Lisa Chandler RN CWOCN Dept. Pager: [phone] Dept. Office Number: [phone] Sintia Lange PA-C - 08/02/2021 11:28 AM [...] tomorrow. SW and pt called jose. His production assistant will fax lease here. Pt will [...] pm. SW let pt know. TUSHAR Castaneda [facility], Transitional Care Unit Social Work [address] [place] [address], 4th [place] [address] () [phone] Elizabeth Howell MD - 08/01/2021 11:[address] [facility] Transitional Care Medicine Progress Note - Hospitalist Service Date of Admission: 07/23/2021 Assessment & Plan Stephani King is a 40 yo female??w/ h/o opioid use d/o, alcohol use disorder,??HCV, hypothyroidism, depression, anxiety, and tobacco abuse. She was??admitted to [facility] on 07/06/21 [facility] for further care of right ankle osteomyelitis [...] ankle pain and immobility --- Controlled. --- Continue??ELECTRONIC TESTER??Suboxone 8mg tid, scheduled APAP 975mg TID, Gabapentin [...] allergenic polyurethane foam dressings (Mepitac tape, Sorbiview, [id number]) over occlusive adhesive semipermeable gauze dressings; [facility] can provide more detailed recommendations --- [...] chronic?? Alcohol use disorder.?? --- HCV quant 953076??at OSH. --- Continue Lactulose 20 g bid [...] team . Elizabeth Howell MD Hospitalist Service [facility] Transitional Care Securely message with the [employer] Console (learn more here) Text page via [facility] [place] [employer] [place] Paging/Directory Interval History Uneventful night. No complaints. [...] up in bed, driftingin/out of sleep as writer technical publications was setting up IV abx and administering [...] SPIRITUAL HEALTH SERVICES SPIRITUAL ASSESSMENT Progress Note [facility] ([facility]) TCU R 410 07/31/21 REFERRAL SOURCE: Self Referral Unit Excelsior Machine Operator introduced self to Pt. She declined from receiving SHS and visit with Excelsior Machine Operator. PLAN: No follow up necessary. Lucas Allen MA, MPA Associate Excelsior Machine Operator Pager: [phone] Leydi Meng, RONALD - 07/31/2021 9:54 AM [...] disorder,??HCV, hypothyroidism, depression, anxiety, and tobacco abuse??admitted??to [facility] [...] kg) ASSESSED NUTRITION NEEDS Estimated Energy Needs: 1777-4992 kcals/day (25 - 30 kcals/kg) Justification: Maintenance [...] Leydi Meng MS, RD, LDN Unit Pager [phone] Weekend pager: [phone] Emily Macias RN - 07/30/2021 11:04 AM CDT Images from the original note were not included. [facility] WO Nurse Inpatient Assessment Today's Assessment: [...] control prior to re-starting VAC. Marilu Mar, PROVIDER RELATIONS ADVOCATE with Ortho will order 4% topical lidicaine [...] dry. Cut piece of Hydrofera blue (# [id number]) to size of wound. Moisten HFB with [...] Emily Macias RN BSN CWOCN Dept. Pager: [phone] Dept. Office Number: [phone] LIOT Smita Stone PT - 07/30/2021 9:14 AM CDT 07/30/21 0900 Appointment Canceled Appointment Canceled Patient declined Cancel Comments PT: Pt declined due to feeling really sore from previous days of therapy, requeststo resume therapy tomorrow. Signing Clinician's Name / Credentials Signing clinician's name / credentials Smita Stone DPT [facility] Disc[facility] PT La Nena Aguilera MD - 07/28/2021 8:[address] [facility] Transitional Care Medicine Progress Note - Hospitalist Service Date of Admission: 07/23/2021 Assessment & Plan 40 year old female??with past medical history significant for opioid use disorder,??alcohol use disorder,??HCV, hypothyroidism, depression, anxiety, and tobacco abuse??admitted to [facility] on 07/06/21 from [facility] [...] of wound vac ?>Pain control: Currently controlled. -Continue??ELECTRONIC TESTER??Suboxone ??8mg tid ??; scheduled APAP 975mg TID, [...] allergenic polyurethane foam dressings (Mepitac tape, Sorbiview, [id number]) over occlusive adhesive semipermeable gauze dressings; WOC [...] Transaminitis? # Alcohol use disorder.?? HCV quant [id number]??at OSH. ??AST 117---56 , ALT 44--- 42 [...] with periods of confusion early in admission. ??[place] to be??toxic vs metabolic??2/ ?withdrawal, infection, sepsis. [...] . La Nena Babb MD Hospitalist Service [facility] Transitional Care Securely message with the [employer] Console (learn more here) Text page via [employer] Paging/Directory Clinically Significant Risk Factors Present on [...] (from the past 24 hour(s)). Van Corona, ANIMATION PRODUCER - 07/27/2021 5:10 PM CDT 07/27/21 1500 General Information Onset of Illness/Injury or Date of Surgery 06/28/21 Referring Physician La Nena Babb MD Patient/Family Therapy Goal Statement (ANIMATION PRODUCER) To go home Pertinent History of Current Problem Pt is 40 year old female with past medical history significant for opioid use disorder, alcohol use disorder, HCV, hypothyroidism, depression, anxiety, and tobacco abuse admitted to [facility] on 07/06/21 from [facility] for further care of R ankle osteomyelitis by Orthopedics, Plastics, and Infectious Disease. Pt diagnosed with acute encephalopathy, suspected due to infection/sepsis. Patient was transferred to TCU 07/23 for ongoing cares Iv antibiotics, wound cares. General Observations Pt referred to ANIMATION PRODUCER for cognitive-linguistic evaluation by interdisciplinary team; TCU [...] memory strategy training;Progressive attention training Clinical Impression ANIMATION PRODUCER Diagnosis Mild cognitive impairment Risks & Benefits [...] schedules at prior level of function. Skilled ANIMATION PRODUCER services indicated to train in compensatory memory strategies and instruct in executive function tasksto increase independence in iADLs. Therapy Certification Start of Care Date 07/27/21 Certification date from 07/27/21 Certification date to 08/26/21 Total Evaluation Time Total Evaluation Time (Minutes) 33 (cognitive-linguistic evaluation.) ANIMATION PRODUCER Goals Therapy Frequency (ANIMATION PRODUCER Eval) 4 times/wk ANIMATION PRODUCER Predicted Duration/Target Date for Goal Attainment 08/18/21 ANIMATION PRODUCER Goals ANIMATION PRODUCER Goal 1;ANIMATION PRODUCER Goal 2 ANIMATION PRODUCER: Goal 1 Patient will recall information moderate to high level complexity with 80% accuracy and minimal cues from ANIMATION PRODUCER. ANIMATION PRODUCER: Goal 2 Patient will complete high level executive function tasks with 90% accuracy and minimal cueing from ANIMATION PRODUCER. SUMMARY OF TEST: The CLQT assesses visual [...] REPORT: TOTAL TIME: 33 Reference: Sailaja Messina, CCC-ANIMATION PRODUCER, (2001) [employer] Associated attestation - Reyna Ulloa MD - 09/03/2021 10:07 AM CDT Reviewed the plan of care as written by the therapy team. I agree with the charted information in the Rehabilitation evaluation, flowsheet and plan of care Reyna Ulloa MD, A Senior Financial Accountant Transitional Care unit 09/03/21 Emily Macias RN - 07/27/2021 8:11 AM CDT Images from the original note were not included. [facility] Clinic Nurse Inpatient Assessment Today's Assessment: Right lateral [...] control prior to re-starting VAC. Marilu Mar, PROVIDER RELATIONS ADVOCATE with Ortho will order 4% topical lidicaine [...] with vac drape prior to applying sponge manual control auger press operator to assess integrity of dressing and ensure [...] Emily Macias RN BSN CWOCN Dept. Pager: [phone] Dept. Office Number: [phone] Breanna Newton - 07/25/2021 12:52 PM CDT [...] story home with three minor children in [place], [place]. Previous Functional Status: Pt stated she was IND with ADL's and IADL's. Pt did walk with a limp. DME available: Pt stated none. Patient and family understanding of hospitalization: Appropriate and pleasant. Cultural/Language/Spiritual Considerations: Pt is a 40 y.o. female, , Somali-speaking, and is Islam. Abuse concerns: None reported. BIMS: Pt scored 13 on BIMS indicating cognition intact. PHQ-9: Pt scored 0 on PHQ-9 indicating no depressive symptoms. PAS: confirmation number- [id number] Has there been a level II screen? No Were there any recommendations in the screen? No If yes, will the recommendations we incorporated into the Plan of Care? N/A Physical Health Reason for admission: 40 year old female??with past medical history significant for opioid use disorder,??alcohol use disorder,??HCV, hypothyroidism, depression, anxiety, and tobacco abuse??admitted to [facility] on 07/06/21 from [facility] for further care of R ankle osteomyelitis by Orthopedics, Plastics, and Infectious Disease Patient Was transferred to TCU 07/23 for ongoing cares Iv antibiotics, wound cares ?? Provider Information Primary Care Physician: Yenifer Pickens [place] [address], [place], [address] [facility] Health: Juanis Mckenzie [address] [place] [address] Manager Business Banking: None Mental Health: Diagnosis: Per H & P Depression and anxiety Current Support/Services: Medications, Therapist, Parenting instructions from the [facility], Sober support group, Online therapy. Previous Services:See above list. Services Needed/Recommended: Pt could not report anything more needed. Substance Use: Diagnosis: Per H &P Opioid use disorder and alcohol and tobacco use disorder. Current Support/Services: Medications,Therapist, Parenting instructions from the [facility], Sober support group, Online therapy. Previous Services: Pt has gone through treatment. Services Needed/Recommended: None at this time. Support System: Marital Status: . lives in [place]. Family support: Mom/ So Parker [phone] lives a mile away. Brother/ Colby Parker [phone] Three minor children 4,5,15 y.o. Other support available: Sober friends. Gaps in support system: Pt's dad just . Otherwise, none reported. Community Resources Current in home services: None reported. Previous services: None reported. 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 Income Source: [employer], [place]. Education:[employer], 2 years of college in [employer] and [employer] Financial Concerns: Pt tried to [...] completed the 3543 with pt. TUSHAR Castaneda [facility], Transitional Care Unit Social Work [address]th [place] [address] () [phone] La Nena Babb MD - 07/25/2021 12:22 PM CDT Chart check TSH came back normal La Nena Babb MD Omayra Edward RN - 07/25/2021 8:30 AM CDT Images from the original note were not included. [facility] WO Nurse Inpatient Assessment Today's Assessment: [...] control prior to re-starting VAC. Marilu Mar PROVIDER RELATIONS ADVOCATE with Ortho will order 4% topical lidicaine [...] with vac drape prior to applying sponge manual control auger press operator to assess integrity of dressing and ensure [...] Score: 19 Omayra Edward RN Dept. Pager: [phone] Dept. Office Number: [phone] Mariam Richter OT - 07/24/2021 12:58 PM [...] OT: pt reports living in house in [place] w/ 4steps to enter but abelto stay on main level , bathroom has tub shower combo and no bench/no grabbars. low toilet, kids bedrooms are upstairs , mom lives 1mile away and currently assisting w/ kids, ELECTRONIC TESTER pt did most of the cook ing/cleaning/laundry, [...] (admit to [facility] from [facility]) Referring Physician Sohail Babb Patient/Family Therapy Goal [...] plan of care Reyna Ulloa MD, A Senior Financial Accountant Transitional Care unit 08/02/21 Smita Stone, PT - 07/24/2021 12:11 PM CDT 07/24/21 0800 Quick Adds Quick Adds Certification Type of Visit Initial PT Evaluation Investment Officer Language Somali Living Environment People in Home child(kayden), dependent (14,8,4) Current Living Arrangements house Home Accessibility no concerns Transportation Anticipated family or friend will provide Living Environment Comments PT: Pt lives in [place], [place] with 4 ILANA after that needs are managed on one level. Pt has dependent children at home and ELECTRONIC TESTER was IND with household cares but reports not driving for a long time due to ankle issues. Does not own or use ELECTRONIC TESTER any AD. Pt does report that ~ [...] anxiety, and tobacco abuse admittedon 07/06/21 from [facility] for [...] fitting/training;patient/family education;postural re-education;prosthetic fitting/training;ROM (range of motion);stair training;strengthening;stretching;salvadorean ball techniques;TENS;thermotherapy;transfer training;wheelchair management/propulsion training;progressive activity/exercise;risk factor [...] plan of care Reyna Ulloa MD, A Senior Financial Accountant Transitional Care unit 08/02/21 Dilma Adams - [...] Community Involvement Community Involvement Disabled Spiritual Practice [facility] [place] Machine Operator? No Outings Movies Hobbies/Interests Cards Other [...] Care Yes Treatment Plan Interested in Unit [place]? No Type of Intervention Independent with activity [...] hypothyroidism, depression, anxiety, and tobacco abuse??admitted to [facility] on 07/06/21 from [facility] [...] up/Monitoring RD to complete full assessment at [facility] unless otherwise consulted Leydi Meng MS, RD, LDN Unit Pager [phone] Weekend pager: [phone] documented in this encounter H&P Notes La Nena Babb MD - 07/24/2021 8:[address] [facility] Transitional Care History and Physical - Hospitalist Service Date of Admission: 07/23/2021 Assessment & Plan 40 year old female??with past medical history significant for opioid use disorder,??alcohol use disorder,??HCV, hypothyroidism, depression, anxiety, and tobacco abuse??admitted to [facility] on 07/06/21 from [facility] [...] epic for recommendations.. ?>Pain control: Currently controlled. -Continue??ELECTRONIC TESTER??Suboxone ??8mg tid ??; scheduled APAP 975mg TID, [...] allergenic polyurethane foam dressings (Mepitac tape, Sorbiview, [id number]) over occlusive adhesive semipermeable gauze dressings; WOC [...] Transaminitis? # Alcohol use disorder.?? HCV quant 937004??at OSH. ??AST 117---56 , ALT 44--- 42 [...] with periods of confusion early in admission. ??[place] to be??toxic vs metabolic??2/2 ?withdrawal, infection, sepsis. ??Utox positive only for cannabinoids. ??Started on Lactulose at OSH. Currently alert, oriented, nonfocal.. ?? # Hypokalemia # Hypomagnesemia?? -Replaced ?? # Hypothyroidism ??- Continue Levothyroxine 125mcg QAM. -last TSH In [place] was 2019, repeat TSH with next blood [...] Anticipated discharge location: home Follow-up Appointments Adult [facility] Follow-up and recommended labs and tests Follow up with Dr Camara or Morgan with Podiatry in 1-2 weeks. Clinic phone number is [phone] ?? Follow up with Plastic Surgery in 2 weeks. ?? Follow up with infectious disease 4-6 weeks. ?? Follow-up Labs: Weekly CBC w diff, BMP, CRP. Please have labs faxed to ID clinic. ?? The patient's care was discussed with the care team La Nena Babb MD Hospitalist [facility] Transitional Care Securely message with the [employer] Console (learn more here) Text page via [employer] Paging/Directory Chief Complaint Weakness, right ankle pain, IV antibiotics administration History of Present Illness 40 year old female??with past medical history significant for opioid use disorder,??alcohol use disorder,??HCV, hypothyroidism, depression, anxiety, and tobacco abuse??admitted to [facility] on 07/06/21 from [facility] [...] So Luciano MD; Location: [facility] OR ??? SECURITY SYSTEM TECHNICIAN SURGERY ??? IRRIGATION AND DEBRIDEMENT FOOT, [...] 4 MG/0.1ML nasal spray No No Sig: [place] 1 spray (4 mg) into one nostril [...] 12:40 PM CDTAssociated Order(s): DERMATOLOGY IP CONSULT [facility] Inpatient Teledermatology Store and Forward Consult Note [...] physician: Dr. Mckinley Vanessa MD Dermatology Resident [facility] I reviewed all available images and relevant [...] anxiety, and tobacco abuse, initially admitted to [facility] from [facility] on 07/06/21 for R ankle osteomyelitis [...] Pt met all cognitive-linguistic goals with TCU ANIMATION PRODUCER. Plan of Care - Brittnee Scott RN - 08/22/2021 2:14 PM CDT Care Coordination: Discharge Plan: Home care agency: [facility] Patient will receive correction through this agency at discharge. Incision Care: Patient will need to demonstrate dressing change prior to discharge. Please send home enough dressing supplies until next follow up with plastics in 1 week. Discharge date: Today or tomorrow pending if patient can get transport set up to clinic and then home. Brittnee Scott Patient Die Designer Apprentice Acute Rehabilitation Unit/ Transitional Care Unit. Plan of Care - Maryam Rose RN - 08/22/2021 1:39 PM CDT Goal Outcome Evaluation: Alert and oriented x 4. Denies chest pain and SOB. Went for her ortho appointment and wound vac was removed. Discharge has been placed but d/t some reasons she will not be discharge today.Pure Pak Machine Operator explained to her that she cannot go there as an outpatient not unless she was discharge to us and can make an appointment with the recovery clinic, pt insisted to go there. Brought by writer technical publications and a trainee andnurse explained to her the same information that the writer technical publications told her. Explained to pt that she couldnot have any doses of Subutex and will missed 1 dose for today and pt stated that she has stock fromhome.Pure Pak Machine Operator explained the kind of medications, how she [...] accepting new clients for patients living area. [facility]: Left for return call [facility]: Was able to accept patient to care for correction. Faxed over clinicalsand discharge summary. Brittnee Scott Patient Die Designer Apprentice Acute Rehabilitation Unit/ Transitional Care Unit. Plan [...] RPIV pulled following completion of ABT. When writer technical publications updated pt thatABT course was completed and [...] Castellanos, REFUGIO - 08/21/2021 12:10 PM CDT Typecasting Machine Operator Post-Acute Rehab PT: Recert Date: 08/22/2021 Discharge Plan: Home to [place], [place] in house with 4 ILANA with [...] is MOD I to the [facility]. Continent for both B&B and uses BS. [...] patient Plan of Care - Brice Ni, ANIMATION PRODUCER - 08/19/2021 8:53 AM CDT Typecasting Machine Operator Post-Acute Rehab ANIMATION PRODUCER: Discharge Plan: no ongoing ANIMATION PRODUCER interventions Precautions: IV antibiotics Current Status: Communication: [...] Hoffman RN - 08/17/2021 9:34 AM CDT Pure Pak Machine Operator had checked in on patient on 08/16, pt reported doing well and showing writer technical publications her new wound vac. Pt reported no current concerns that needed addressing. Pure Pak Machine Operator circled back regarding interest inCOVID vaccine of which patient said that she would like to have the vaccine here on TCU. Pure Pak Machine Operator infor med Provider to discuss with patient and order if appropriate. New orders in place for vaccine. 0900 08/17/2021: writer technical publications approached patient with COVID-19 Screening and Consent of which pt reported,after a lot of thinking, I don't want the vaccine. I have already had the vaccine once and I don't want another one. Pure Pak Machine Operator discussed risks/benefits of vaccine; patient declined. Pure Pak Machine Operator left information packet at bedside should patient be interested in the future. Plan of Care - Evelyn Ascencio RN - 08/17/2021 6:11 AM CDT Report received from evening nurse that pt constantly argued with the nurse regarding her completed PRN order of oxycodone. At the beginning of the marketing team lead, pt called writer technical publications and asked about her oxycodone prescription. Pure Pak Machine Operator explained to her that the oxycodone order [...] two bottles from her bag and left. Pure Pak Machine Operator asked her if any security was there when she gave the meds to the staff. She said no. Pure Pak Machine Operator called pharmacy but pharmacy responded that they did not take any meds from the patient. Message sent to manager laboratory and DON. Pt alert and oriented. No [...] 08/16/2021 7:54 PM CDT Goal Outcome Evaluation: [id number]: Pt was alert and oriented x 4. [...] when ever she could not get Oxycodone writer technical publications offered pudding, ice cream and bucket of [...] thigh graft Plan of Care - Petrona Hollnad RN - 08/15/2021 12:19 PM CDT A&Ox4. Independent. Continent of both bowel and bladder- uses bedside commode. [facility] 08/15. Denies pain, SOB, chest pain, [...] resulted. NPO to begin at 0500 08/15/21. Pure Pak Machine Operator informed patient. Right foot dressing changed after shower. Orientation: A/O x4 Bowel: Continent using BSC; LBM 08/13/21 Bladder: Continent Pain: Tooth ache Ambulation/Transfers: A1 walker Diet/ Liquids/ Pills: Regular, thin. Whole. Tubes/ Lines/ Drains: R forearm PIV Skin: Right foot Plan of Care - Marlena Castellanos PTA - 08/14/2021 4:03 PM CDT Typecasting Machine Operator Post-Acute Rehab PT: Recert Date: 08/22/2021 Discharge Plan: Home to [place], [place] in house with 4 ILANA with [...] will have a flap surgery tomorrow at [place], wool supplier at 1215. Patient needs a shower this [...] Cross, PT - 08/13/2021 10:59 AM CDT Typecasting Machine Operator Post-Acute Rehab PT: Recert Date: 08/22/2021 Discharge Plan: Home to [place] in house with 4 ILANA with [...] Corona SLP - 08/12/2021 4:38 PM CDT Typecasting Machine Operator Post-Acute Rehab ANIMATION PRODUCER: Discharge Plan: no ongoing ANIMATION PRODUCER interventions Precautions: IV antibiotics Current Status: Communication: [...] pt recalled 5/5 with no cues from ANIMATION PRODUCER.Educated in use of mental imagery strategy in [...] Castellanos PTA - 08/12/2021 12:27 PM CDT Typecasting Machine Operator Post-Acute Rehab PT: Recert Date: 08/22/2021 Discharge Plan: Home to [place], [place] in house with 4 ILANA with [...] stair training. Plan of Care - Christina Maaz RN - 08/12/2021 5:08 AM CDTSummary: CARE [...] Corona SLP - 08/10/2021 5:05 PM CDT Typecasting Machine Operator Post-Acute Rehab ANIMATION PRODUCER: Discharge Plan: no ongoing ANIMATION PRODUCER interventions Precautions: IV antibiotics Current Status: Communication: [...] Castellanos PTA - 08/10/2021 3:54 PM CDT Typecasting Machine Operator Post-Acute Rehab PT: Recert Date: 08/22/2021 Discharge Plan: Home to [place] in house with 4 ILANA with [...] 99.5. Plan of Care - Gucci Ko ANIMATION PRODUCER - 08/09/2021 9:56 AM CDT Typecasting Machine Operator Post-Acute Rehab ANIMATION PRODUCER: Discharge Plan: no ongoing ANIMATION PRODUCER interventions Precautions: IV antibiotics Current Status: Communication: [...] Jensen PTA - 08/09/2021 9:15 AM CDT Typecasting Machine Operator Post-Acute Rehab PT: Recert Date: 08/22/2021 Discharge Plan: Home to [place], [place] in house with 4 ILANA with [...] Jensen PTA - 08/08/2021 4:34 PM CDT Typecasting Machine Operator Post-Acute Rehab PT: Recert Date: 08/22/2021 Discharge Plan: Home to [place], [place] in house with 4 ILANA with [...] training. Plan of Care - Gucci Ko ANIMATION PRODUCER - 08/08/2021 4:04 PM CDT Typecasting Machine Operator Post-Acute Rehab ANIMATION PRODUCER: Discharge Plan: Likely ongoing ANIMATION PRODUCER Precautions: IV antibiotics Current Status: Communication: WNL [...] room w/knee scooter and to [facility]. Continues IV abx via SL valved picc [...] Jensen PTA - 08/07/2021 4:04 PM CDT Typecasting Machine Operator Post-Acute Rehab PT: Recert Date: 08/22/2021 Discharge Plan: Home to [place], [place] in house with 4 ILANA with [...] Cross, PT - 08/06/2021 1:16 PM CDT Typecasting Machine Operator Post-Acute Rehab PT: Recert Date: 08/22/2021 Discharge Plan: Home to [place], [place] in house with 4 ILANA with [...] More, PT - 08/05/2021 5:46 PM CDT Typecasting Machine Operator Post-Acute Rehab PT: Recert Date: 08/22/2021 Discharge Plan: Home to [place], [place] in house with 4 ILANA with [...] Ko SLP - 08/04/2021 12:27 PM CDT Typecasting Machine Operator Post-Acute Rehab ANIMATION PRODUCER: Discharge Plan: Likely ongoing ANIMATION PRODUCER Precautions: IV antibiotics Current Status: Communication: WNL [...] Medina, VARINDER - 08/03/2021 2:23 PM CDT Typecasting Machine Operator Post-Acute Rehab ANIMATION PRODUCER: Discharge Plan: Likely ongoing ANIMATION PRODUCER Precautions: IV antibiotics Current Status: Communication: WNL [...] Vicente, PT - 08/03/2021 11:27 AM CDT Typecasting Machine Operator Post-Acute Rehab PT: Recert Date: 08/22/2021 Discharge Plan: Home to [place], [place] in house with 4 ILANA with [...] with pt to discuss COVID vaccine status. Pure Pak Machine Operator offered and provided education re COVID vaccine [...] POC. Plan of Care - Gucci Ko ANIMATION PRODUCER - 08/01/2021 4:52 PM CDT Typecasting Machine Operator Post-Acute Rehab ANIMATION PRODUCER: Discharge Plan: Likely ongoing ANIMATION PRODUCER Precautions: IV antibiotics Current Status: Communication: WNL expressive and receptive language Cognition: Mild cognitive impairment- memory, attention, executive function/visuospatial deficits. Swallow:Regular/thin; not formally assessed on TCU Assessment: ANIMATION PRODUCER: Patient engaged in deductive reasoning task. Focus this date on strategies to recognize and correct errors. Patient this date was able to recognize errors but unable to repair without significant assistance. Discussed plan with patient to extend ANIMATION PRODUCER interventions into early next week pending progress and discharge plan. Other Barriers to Discharge (Family Training, etc): none noted at this time. Plan of Care - Marycarmen Cross, PT - 08/01/2021 4:16 PM CDT Typecasting Machine Operator Post-Acute Rehab PT: Recert Date: 08/22/2021 Discharge Plan: Home to [place], [place] in house with 4 ILANA with [...] goal(s). See goals on Care Plan in [facility] electronic health record for goal details. [...] PM CDT Care Coordination: Patient's mother called writer technical publications to communicate concerns she had about patient leaving the facility tomorrow for a pass to go home to sign a lease. She stated that patient has alcoholism and she is concerned she is leaving to drink. She states that patient has participated in inpatient treatment multiple times and has relapsed after every treatment. She states that patient has a psychosocial rehabilitation counselor assigned to her in the community and did have a counselor. She states that patient was actively drinking priorto hospitalization. Patient's mother has been taking care of her children. Her mother states she haslost her own job trying to take care of the children and would like patient to have a sobriety plan for when she discharges home. Pure Pak Machine Operator did alert MD on TCU, social work, and DON. Leydi Alarcon RN, BSN, CRRN Patient Die Designer Apprentice Acute Rehabilitation Unit/Transitional Care Unit : [phone] Pager: [phone] Care Plan - So Rojas RN - [...] Joel OTA - 08/01/2021 10:22 AM CDT Typecasting Machine Operator Post-Acute Rehab OT: Discharge Plan: home w/ [...] modified indep it items accessible. IADLs: indep ELECTRONIC TESTER per pt, demo simple kitchen mobility and [...] Demonstrates good safety with use of knee horticultural agent with ambulation. Other Barriers to Discharge (DME, [...] - 07/31/2021 3:36 PM CDT Care Coordination Pure Pak Machine Operator met with patient to assess level of support patient would have at home. Patient stated her mom was her primary support. Mother is currently watching patients children. Patient stated she would have to talk to her mother to see if she was willing to learn the dressing changes, and IV antibiotics. Pure Pak Machine Operator asked for permission to discuss update with patients mother, patient granted writer technical publications this permission. Pure Pak Machine Operator called mother. Mother discussed that she was already feeling overwhelmed with the responsibility of watching the kids. Mother was not willing to commit to learning the dressing change or IV antibiotics at this time. Pure Pak Machine Operator will bring this information back to IDT to reassess plan of care. Brittnee Scott RN Plan of Care - Gucci Ko SLP - 07/31/2021 12:56 PM CDT Typecasting Machine Operator Post-Acute Rehab ANIMATION PRODUCER: Discharge Plan: Likely ongoing ANIMATION PRODUCER Precautions: IV antibiotics Current Status: Communication: WNL [...] Richter OT - 07/31/2021 12:51 PM CDT Typecasting Machine Operator Post-Acute Rehab OT: Discharge Plan: home w/ [...] modified indep it items accessible. IADLs: indep ELECTRONIC TESTER per pt, demo simple kitchen mobility and [...] was effective. Wound vac taken off by [facility] nurse and mepilex dressing on. PICC [...] side commode indep. [facility] the scooter at [facility] Skin: Red bumps on left upper arm and right lower leg Pain: Yes c/o of aching all over CMS: intact Dressing: PICC dressing, and right ankle dressing, wound vac removed today by [facility] Diet: regualr LDA: Picc left AC [...] patient Plan of Care - Gucci Ko, ANIMATION PRODUCER - 07/30/2021 12:49 PM CDT Typecasting Machine Operator Post-Acute Rehab ANIMATION PRODUCER: Discharge Plan: Likely ongoing ANIMATION PRODUCER Precautions: IV antibiotics Current Status: Communication: WNL [...] Aguilera OTA - 07/30/2021 12:41 PM CDT Typecasting Machine Operator Post-Acute Rehab OT: Discharge Plan: home w/ [...] (pericares per nsg w/ setup) IADLs: indep ELECTRONIC TESTER per pt, Vision/Cognition: glasses, demo impaired memory,reasoning [...] Cross PT - 07/29/2021 4:35 PM CDT Typecasting Machine Operator Post-Acute Rehab PT: Discharge Plan: Home to [place], [place] in house with 4 ILANA with [...] BM today. Continent of bowel and bladder. Gsu bandage rewrapped around right ankle over wound [...] 97 % Patient does not have new [id number] symptoms. Patient does not have new sore [...] Aguilera OTA - 07/28/2021 12:52 PM CDT Typecasting Machine Operator Post-Acute Rehab OT: Discharge Plan: home w/ [...] (pericares per nsg w/ setup) IADLs: indep ELECTRONIC TESTER per pt, Vision/Cognition: glasses, demo impaired memory,reasoning [...] Corona SLP - 07/27/2021 5:18 PM CDT Typecasting Machine Operator Post-Acute Rehab ANIMATION PRODUCER: Discharge Plan: Home, TBD if ongoing ANIMATION PRODUCER Precautions: IV antibiotics Current Status: Communication: WNL [...] schedules at prior level of function. Skilled ANIMATION PRODUCER services indicatedto train in compensatory memory strategies [...] - 07/27/2021 12:15 PM CDT Care Coordination: Pure Pak Machine Operator met with patient. Pure Pak Machine Operator introduced role of care coordination. Patient stated they would havemother for support. Patient stated mother would be open to learning abx infusion training, and woundcare training. Pure Pak Machine Operator will place PLC training, and follow up with wound care education pending woundcare plan for discharge. Encouraged patient to reach out with any questions regarding POC. Left nameand number on patients white board. Brittnee Scott RN Plan of Care - Marycarmen Cross PT - 07/27/2021 10:17 AM CDT Typecasting Machine Operator Post-Acute Rehab PT: Discharge Plan: Home to [place], [place] in house with 4 ILANA with [...] stair training. Plan of Care - SAM BAZE - 07/27/2021 4:06 AM CDT Goal Outcome [...] Vicente, PT - 07/26/2021 10:36 AM CDT Typecasting Machine Operator Post-Acute Rehab PT: Discharge Plan: Home to [place], [place] in house with 4 ILANA with [...] Gibbs, OT - 07/26/2021 7:58 AM CDT Typecasting Machine Operator Post-Acute Rehab OT: Discharge Plan: home w/ [...] (pericares per nsg w/ setup) IADLs: indep ELECTRONIC TESTER per pt, Vision/Cognition: glasses, demo impaired memory,reasoning [...] prn pain meds for right ankle pain. [facility] nurse changed vac dressing today without [...] Castellanos PTA - 07/25/2021 4:06 PM CDT Typecasting Machine Operator Post-Acute Rehab PT: Discharge Plan: Home to [place], [place] in house with 4 ILANA with [...] Richter OT - 07/25/2021 12:22 PM CDT Typecasting Machine Operator Post-Acute Rehab OT: Discharge Plan: home w/ [...] (pericares per nsg w/ setup) IADLs: indep ELECTRONIC TESTER per pt, Vision/Cognition: glasses, demo impaired memory,reasoning [...] Richter OT - 07/24/2021 12:59 PM CDT Typecasting Machine Operator Post-Acute Rehab OT: Discharge Plan: home w/ mom to support PRN, Recert: 08/22 Precautions: NWB RLE, falls, mild cog deficits , IV antibiotics, wound vac Current Status: ADLs: Mobility: sba Grooming: sba Dressing: sba ub and LB drg Bathing: NT Toileting: NT IADLs: indep ELECTRONIC TESTER per pt, Vision/Cognition: glasses, demo impaired memory,reasoning [...] chair Pharmacy-Medication Regimen Review - Suze Morales [facility] - 07/24/2021 12:21 PM CDT Pharmacy Medication [...] are listed with recommendations. Suze Morales, SidneyD, [facility] Current Facility-Administered Medications: ??? [START [...] in Place, , Transdermal, Q8H [facility], La Nena Babb MD ??? Nurse may [...] 2 tablet, 2 tablet, Oral, BID, Bethanie oDwd MD, 2 tablet at 07/23/212117 ??? sodium [...] Stone PT - 07/24/2021 12:12 PM CDT Typecasting Machine Operator Post-Acute Rehab PT: Discharge Plan: Home to [place], [place] in house with 4 ILANA with [...] IV abx q8hrs. Pt.states picc placed @ [facility]. Prefers to keep dinner tray on bedside [...] Continues on regular diet. Requested to see psychosocial rehabilitation counselor about setting up Advance Directive, sticky note [...] Visit Wound Care Luis Camara DPM [address] [place], [place] [address] (Francisco molina) 01/21/2022 PRE VISIT Gastroenterology Landon Warren, *-*HEATHER G RECORDS*-* MD Luis Fernando [address] [facility] [address] [place], [place] [address] (Francisco molina) 01/21/2022 Office Visit Gastroenterology Juanis Mckenzie [address] [facility] [place] [phone] Luis Fernando Miles MD [address] [facility] [address] [place] [address] Scheduled Referrals Name Type Priority Associated Diagnoses [...] (ABNORMAL) Manual Differential (08/20/2021 7:36 AM CDT) [facility] Method Time Signature % Neutrophils 45 [...] City/State/ZIP Code Phon e Number UR LABORATORY [facility] [place] [address] Care Lab [address] [facility], Room M309 (ABNORMAL) CBC with platelets and differential (08/20/2021 7:36 AM CDT) [facility] gist Method Time Signature WBC Count [...] LAB - BLOOD ORDERABLES Performing Organization Address City/[facility]/ZIP Code Phon [place] [address] Care Lab [address] [place] [address], Room M309 (ABNORMAL) CRP inflammation (08/20/2021 7:36 AM CDT) [facility] Method Time Signature CRP Inflammation 8.9 (H) 0.0 - 8.0 08/20/2021 UR LABORATOR Y mg/L 8:08 AM CDT Specimen Anatomical Collection Method / Collection Time Recei isak Time (Source) Location / Volume Laterality Blood STRUCTURE OF LEFT Venipuncture / 08/20/2021 7:36 08/20 7:40 UPPER LIMB / Unknown AM CDT AM CDT Unknown La Nena Babb MD LAB - BLOOD ORDERABLES Performing Organization Address City/State/[facility] Ph[place] [address] Care Lab [address] [place] [address], Room M309 (ABNORMAL) Basic metabolic panel (08/20/2021 7:36 AM CDT) [facility] Method Time Signature Sodium 142 133 - [...] and gender (Paul et al., NEJ, DOI: [id number]) Specimen Anatomical Collection Method / Collection Time Recei isak Time (Source) Location / Volume Laterality Blood STRUCTURE OF LEFT Venipuncture / 08/20/2021 7:36 08/20 7:40 UPPER LIMB / Unknown AM CDT AM CDT Unknown La Nena Babb MD LAB - BLOOD ORDERABLES Performing Organization Address City/State/ZIP Code [place] [address] Care [address] [place] [address], Room M309 Extra Green Top (Pinole Heparin) Tube (08/17/2021 5:07 AM CDT) P [...] City/State/ZIP Code [place] [address] Care Lab [address] [place] [address], Room M309 (ABNORMAL) CBC with platelets (08/17/2021 [...] City/State/ZIP Code [place] [address] Care [address] [place] [address], Room M309 Extra Purple Top Tube (08/16/2021 1:07 PM CDT) P athologist Signature Hold Specimen JI 08/16/2021 UR LABORATORY 2:34 PM CDT Specimen Anatomical Collection Method / Collection Time Recei isak Time (Source) Location / Volume Laterality Blood STRUCTURE OF LEFT Venipuncture / 08/16/2021 1:07 08/16 1:17 UPPER LIMB / Unknown PM CDT PM CDT Unknown La Nnea Babb MD LAB - BLOOD ORDERABLES Performing Organization Address City/State/ZIP Code [place] [phone] [place] [address], Room M309 (ABNORMAL) Hepatic panel (08/16/2021 1:05 PM CDT) [facility] Method Time Signature Bilirubin Total 0.5 0.2 [...] / Unknown PM CDT PM CDT Unknown Carol Annonur Ibanez MD LAB - BLOOD ORDERABLES Performing Organization Address City/State/ZIP Code [place] [address] Care [address] [place] [address], Room M309 (ABNORMAL) Basic metabolic panel (08/16/2021 1:05 PM CDT) [facility] Method Time Signature Sodium 138 133 [...] and gender (Paul et al., NEJ, DOI: 10.1056/[id number]) Specimen Anatomical Collection Method / Collection Time Recei isak Time (Source) Location / Volume Laterality Blood STRUCTURE OF LEFT Venipuncture / 08/16/2021 1:05 08/16 1:16 UPPER LIMB / Unknown PM CDT PM CDT Unknown La Nena Babb MD LAB - BLOOD ORDERABLES Performing Organization Address City/State/ZIP Code [place] [phone] Care Lab [address] [facility], Room M309 Asymptomatic COVID-19 Virus (Coronavirus) [...] or clinical presentation sugges ts COVID-19. ??[facility] [employer] are certified under the Clinical Laborat ory Improvement Amendments of 1988 (CLIA-88) as qualified to perform moderate and/or high complexity laboratory testing. Christiano Santacruz MD LAB - MICRO GENERAL ORDERABL ES Performing Organization Address City/State/ZIP Code [place] [address] Care Lab [address] [facility], Room M309 (ABNORMAL) CBC with platelets and differential (08/13/2021 6:05 AM CDT) [facility] gist Method Time Signature WBC Count [...] City/State/ZIP Code [place] [address] Care Lab [address] [facility], Room M309 CRP inflammation (08/13/2021 6:05 AM [...] City/State/ZIP Code [place] [address] Care Lab [facility], Room M309 (ABNORMAL) Basic metabolic panel (08/13/2021 6:05 AM CDT) Patholo gist Method Time Signature Sodium 141 133 [...] and gender (Paul et al., NEJ, DOI: [id number]) Specimen Anatomical Collection Method / Collection Time Recei isak Time (Source) Location / Volume Laterality Blood STRUCTURE OF LEFT Venipuncture / 08/13/2021 6:05 08/13 6:34 UPPER LIMB / Unknown AM CDT AM CDT Unknown La Nena Babb MD LAB - BLOOD ORDERABLES Performing Organization Address City/State/ZIP Code [place] [address] Care Lab [address] [facility], Room M309 Asymptomatic COVID-19 Virus (Coronavirus) by PCR Nasopharyngeal (08/10/2021 2:52 PM CDT) [facility] Method Time Signature SARS CoV2 PCR [...] This charito t was validated by the [facility] Infectious Diseases Diag nostic Laboratory. This laboratory is certified under the Clinic co Laboratory Improvement Amendments of 1988 (CLIA-88) as qualifie d to perform high and/or moderate complexity laboratory testing. Kayden Mendes MD LAB - MICRO GENERAL ORDERABL ES Performing Organization Address City/State/ZIP Code Phon e Number UU IDD LABORATORY [facility] [place] [address] Diag. Lab [address] [facility], Room D297 Extra Purple Top Tube [...] City/State/ZIP Code Phon e Number UR LABORATORY [facility] [place] [address] Care Lab [address] [facility], Room M309 (ABNORMAL) Basic metabolic panel (08/09/2021 [...] and gender (Paul et al., NEJ, DOI: 10.1056/[id number]) Specimen Anatomical Collection Method / Collection Time Recei isak Time (Source) Location / Volume Laterality Blood STRUCTURE OF LEFT Venipuncture / 08/09/2021 5:45 08/09 6:15 UPPER LIMB / Unknown AM CDT AM CDT Unknown La Nena Babb MD LAB - BLOOD ORDERABLES Performing Organization Address City/State/ZIP Code [place] [address] Care [address] [place] [address], Room M309 CRP inflammation (08/06/2021 6:00 AM CDT) Analysis [...] City/State/ZIP Code [place] [address] Care Lab [address] [place] [address], Room M309 (ABNORMAL) Basic metabolic panel (08/06/2021 [...] and gender (Paul et al., NEJM, DOI: 10.1056/[id number]) Specimen Anatomical Collection Method Collection Time Receive d Time (Source) Location / / Volume Laterality Blood STRUCTURE OF LEFT VAD(CVC, PICC) / 08/06/2021 6:00 AM 08/06/2021 6:36 UPPER LIMB / Unknown CDT AM CDT Unknown La Nena Babb MD LAB - BLOOD ORDERABLES Performing Organization Address City/State/ZIP Code [place] [address] Care Lab [address] [facility], Room M309 (ABNORMAL) CBC with platelets and differential (08/06/2021 5:58 AM CDT) [facility] Method Time Signature WBC Count 5.0 4.0 [...] City/State/ZIP Code Phon e Number UR LABORATORY [facility] [place] [phone] Care Lab [address] [facility], Room M309 (ABNORMAL) Basic metabolic panel (08/02/2021 6:13 AM CDT) [facility] gist Method Time Signature Sodium 142 [...] and gender (Paul et al., NE, DOI: 10.1056/[id number]) Specimen Anatomical Collection Method Collection Time Receive d Time (Source) Location / / Volume Laterality Blood STRUCTURE OF LEFT VAD(CVC, PICC) / 08/02/2021 6:13 AM 08/02/2021 6:24 UPPER LIMB / Unknown CDT AM CDT Unknown La Nena Babb MD LAB - BLOOD ORDERABLES Performing Organization Address City/State/ZIP Code [place] [address] Care Lab [address] [facility], Room M309 (ABNORMAL) CBC with platelets and differential (07/30/2021 5:53 AM CDT) [facility] gist Method Time Signature WBC Count [...] City/State/ZIP Code Ph[place] [address] Care Lab [address] [facility], Room M309 (ABNORMAL) CRP inflammation (07/30/2021 5:53 AM CDT) [facility] Method Time Signature CRP Inflammation 9.1 (H) [...] City/State/ZIP Code Phon e Number UR LABORATORY [facility] [place] [address] Care Lab [address] [facility], Room M309 (ABNORMAL) Basic metabolic panel (07/30/2021 [...] and gender (Paul et al., NEJM, DOI: [id number]) Specimen Anatomical Collection Method / Collection Time Recei isak Time (Source) Location / Volume Laterality Blood STRUCTURE OF RIGHT Venipuncture / 07/30/2021 5:53 07/18 7:01 UPPER LIMB / Unknown AM CDT AM CDT Unknown La Nena Babb MD LAB - BLOOD ORDERABLES Performing Organization Address City/State/ZIP Code [place] [address] Care Lab [address] [facility], Room M309 (ABNORMAL) Basic metabolic panel (07/26/2021 [...] and gender (Paul et al., NEJM, DOI: 10.1056/[id number]) Specimen Anatomical Collection Method Collection Time Receive d Time (Source) Location / / Volume Laterality Blood CATHETER / Unknown VAD(CVC, PICC) / 07/26/2021 8:05 AM 07/26/2021 8:14 Unknown CDT AM CDT La Nena Babb MD LAB - BLOOD ORDERABLES Performing Organization Address City/State/ZIP Code [place] [address] [address] [place] [address], Room M309 Extra Purple Top Tube (07/26/2021 8:04 AM CDT) athologist Signature Hold Specimen JI 07/26/2021 UR LABORATORY 10:05 AM CDT Specimen Anatomical Collection Method / Collection Time Recei isak Time (Source) Location / Volume Laterality Blood BLOOD SPECIMEN / Venipuncture / 07/26/2021 8:04 2021 8:52 Unknown Unknown AM CDT AM CDT La Nena Babb MD LAB - BLOOD ORDERABLES Performing Organization Address City/[facility]/ZIP Code Ph[place] [address] Care Lab [address] [place] [address], Room M309 Extra Purple Top Tube (07/25/2021 5:51 AM CDT) athologist Signature Hold Specimen [facility] 07/25/2021 UR LABORATORY 7:48 AM CDT Specimen Anatomical Collection Method Collection Time Receive d Time (Source) Location / / Volume Laterality Blood VENOUS LINE / VAD(CVC, PICC) / 07/25/2021 5:51 AM 06/0 09/2021 6:44 Unknown Unknown CDT AM CDT La Nena Babb MD LAB - BLOOD ORDERABLES Performing Organization Address City/State/ZIP Code [place] [address] Care Lab [address] [place] [address], Room M309 TSH with free T4 reflex [...] City/State/ZIP Code Phon e Number UR LABORATORY [facility] [place] [address] Care Lab [address] [facility], Room M309 documented in this encounter [...] Zoe 07/26/21 at 0900, Last dose on Zoe 08/16/21 at 0900, For tuberculosis diagnostic: Adjust reading [...] Starting on Zoe 07/26/21 at 1603, Until Zoe 07/26/21 at 1633 sodium chloride 0.9 % infusion [...] Galeano: cabinet override, 1 dose, Starting on Fri07/30/21 at 1632, Until Fri07/30/21 at 1651 sodium chloride 0.9 % infusion New Bag 08/02/2021 1:13 AM CDT 500 mLs Liza Lloyd: cabinet override, 1 dose, Starting on Zoe 08/02/21 at 0104, Until Fri08/02/21 at 0113 sodium chloride 0.9 % infusion New Bag 08/05/2021 5:21 PM CDT 500 mLs Maryam Rose: cabinet override, 1 dose, Starting on Fri08/05/21 at 1621, Until Fri08/05/21 at 1721 sodium chloride 0.9 % infusion New Bag 08/06/2021 4:44 PM CDT 500 mLs Tyson Dockery: cabinet override, 1 dose, Starting on Fri08/06/21 at 1629, Until Fri08/06/21 at 1644 sodium chloride 0.9 % infusion New Bag 08/09/2021 1:19 AM CDT 500 mLs Jennifer Vaca: cabinet override, 1 dose, Starting on Fri08/09/21 at 0050, Until Fri08/09/21 at 0119 sodium [...] mg 0825 (Given - Provider: Roxy Bautista, GENARO) 0807 (Given - Provider: Roxy Bautista RN) 0830 (Given - Provider: Maryam Rose, GENARO) 162 mg, Oral, DAILY, First dose on Fri at 0800, Indications: dvt ppx, DO NOT CRUSH. buprenorphine (SUBUTEX) sublingual tablet 8 mg 06 (G iven - Provider: Frederick Jack RN)1425 (Given - Provider: Roxy Bautista, GENARO)2129 (Given - Provider: Radames Kee RN) 0512 (Given - Provider: Liza butts RN)1435 (Given - Provider: Roxy Bautista RN)2113 (Given - Provider: Radames Kee RN) 0513 (Given - Provider: Liza butts RN)1358 (Given - Provider: Maryam Rose, GENARO) 8 mg, Sublingual, 3 TIMES DAILY, [...] Osteomyelitis clindamycin (CLEOCIN T) 1 % lotion 816 (Given - Provi nia: Roxy Queen RN)2030 [...] RN) 08 (Given - Provider: Roxy Bautista RN)2112 (Given [...] 08 (Given - Provider: Maryam Rose RN) 1 [...] Radames Kee RN - Reason: Patient/family refused) 0808 (Given - Provider: Roxy Bautista RN) Topical, [...] RN)2038 (Given - Provider: Radames Kee RN) 08 (Not Given - Provider: Roxy Bautista RN [...] 1 patch, Transdermal, EVERY 24 HOURS, Ad band head saw operator over 24 Hours, First dose on Fri07/24/21 [...] RN)1659 (Given - Provider: Radames Kee RN) 022 [...] RN) 0829 (Given - Provider: Maryam Rose, GENARO) 300 mg, Oral, DAILY, First dose [...] mg 0307 (Given - Provider: Frederick Jack GENARO) 0926 (Given - Provider: Maryam Rose, GENARO) 25 mg, Oral, EVERY 6 HOURS PRN, other, a nxiety, adjuvant pain, Starting on Fri07/23/21 at 1616 ibuprofen (ADVIL/MOTRIN) tablet 200 mg (COMPLETED) 112 1 (Given - Provider: Roxy Bauitsta, RN)1622 (Given - Provider: Radames Kee, RN) [...] 1623 (New B ag - Provider: Radames Kee, GENARO) Radames Kee: cabinet override, 1 dos e, Starting on Fri08/20/21 at 1611, Until Fri08/20/21 at 1623 Linked Groups Order Group 1: naloxone (NARCAN) injection 0.2 mgJump to med 0.2 mg, Intravenous, EVERY 2 MIN PRN, op ioid reversal, Starting on 07/23/21 at 1626
Administer intravenous route when available [...] documented as of this encounter Care Teams Prototype Model Maker Relationship Specialty Start Date End Date Juanis Mckenzie PCP - General Addiction Medicine 06/29/21 [address] [place] [address] Stephani Pina, Assigned PCP 02/25/21 SWATCH PASTER SPREAD CUTTER [address] [place] [address] Elsa Yeh, Registered Nurse Infectious Diseases 07/25/21 RN Rogelio Treadwell Assigned Musculoskeletal 08/04/21 MD August Provider [address] [place] [address] Luis Camara MD Podiatry 08/16/21 CALVIN Burnett [address] [place] [address] documented as of this encounter
--- OUTSIDE RECORDS SUMMARY | 2021-12-13 12:31 | XMS_ITS | Encounter Summary ---
:1980 Author Organization [place] Address [address] [facility] [place] [address] Care Team Providers Name Role Phone Stephani Pina BIT SHARPENER BUSINESS TRAVEL CONSULTANT Unavailable [phone] Juanis Levi Primary Care Provider Elsa Yeh RN Unavailable Unavailable Rogelio Treadwell MD Unavailable [phone] Luis Camara DPM Unavailable [phone] Camryn Christina MD Unavailable Sintia Lange PA-C Unavailable Luis Fernando Miles MD Unavailable [phone] Encounter Details Date Type Department Care Team Description 08/15/2021 Hospital Encounter [facility] Liz swan, Transitional Care Unit MD [facility] [place] [address] [facility] [address] [place] [id number] (Wo rk) Social History Tobacco Use Types [...] Date Recorded Female 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 documented as of this encounter Plan of Treatment Upcoming Encounters Date Type Specialty Care Team Description 12/20/2021 Office Visit Wound Care Luis Camara, CALVIN [address] [place], [place] [phone] (Wo rk) 01/21/2022 PRE VISIT Gastroenterology Landon Warren, *-*WANDAIN G RECORDS*-* MD Luis Fernando [address] [place] [address] (Wo rk) 01/21/2022 Office Visit Gastroenterology Juanis Levi [address] [place] [address] Luis Fernando Miles MD [address] [place] [phone] documented as of this encounter Visit Diagnoses Not on filedocumented in this encounter Additional Health Concerns Infection Onset Date Last Indicated Resolved Time MRSAComment: Added from external infection. 11/07/201406/18 Assessment Noted Time PHQ-9 Depression Total Score: 2 12/15/2020 1:07 PM CDT documented as of this encounter Care Teams Human Resources Operations Specialist Relationship Specialty Start Date End Date Juanis Levi PCP - General Addiction Medicine 06/29/[address] [place] [address] Stephani Pina, Assigned PCP 02/25/21 BIT SHARPENER BUSINESS TRAVEL CONSULTANT [address] [place] [address] Elsa Yeh, Registered Nurse Infectious Diseases 07/25/21 RN Rogelio Treadwell Assigned Musculoskeletal 08/04/21 MD August Provider [address] [place] [address] Luis Camara MD Podiatry 08/16/21 CALVIN Burnett [address] [place] [address] Camryn Christina Assigned Surgical 09/01/21 09/07/21 MD Lexie Provider [address] [facility] [address] [place] [address] Sintia Lange, Assigned Surgical 09/08/21 PA-C Provider [address] [facility] 4TH [place] [address] Landon Warren MD Gastroenterology 11/21/21 MD Luis Fernando [address] [facility] [address] [place] [address] documented as of this encounter
--- OUTSIDE RECORDS SUMMARY | 2021-12-13 12:31 | XMS_ITS | Encounter Summary ---
:1980 Author Organization [place] Address [facility] [place] [address] Care Team Providers Name Role Phone Stephani Pina FARZANA RETAIL ASSET PROTECTION SPECIALIST Unavailable [phone] Juanis Levi Primary Care Provider Elsa [...] Department Care Team Description 07/31/2021 Office Visit [facility] Rogelio Treadwell Pain in joint, ankle Orthopedic Clinic MD August and foot, right [address] (Primary Dx) [address] [place], [place] 4th Floor [address] [place], [place] [phone] (Wo rk) [address] [phone] Social History Tobacco Use Types Packs/Day Years Used Date Smoking Tobacco: Every Day Cigarettes 0.3 10 Smokeless Tobacco: Never Comments: 5-8 cigarettes a day Alcohol Use Standard Drinks/Week Comments Not Currently 0 (1 standard drink = 0.6 oz pure alcoho l) sober since 08/2020 Sex Assigned at Date Recorded Female 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 COVID-19 Exposure Response Date Recorded In [...] Visit Wound Care Luis Camara DPM [address] [place] [address] (Wo rk) 01/21/2022 PRE VISIT Gastroenterology Landon Warren, *-*HEATHER RECORDS*-* MD Luis Fernando [address] [address] (Wo rk) 01/21/2022 Office Visit Gastroenterology Juanis Levi [facility] [place] [phone] Luis Fernando Miles MD [address] [facility] [address] [place], [place] [address] documented as of this encounter Visit Diagnoses Diagnosis Pain in joint, ankle and foot, right - P rimary documented in this encounter Additional Health Concerns Infection Onset Date Last Indicated Resolved Time MRSAComment: Added from external infection. 11/07/201406/18 Assessment Noted Time PHQ-9 Depression Total Score: 2 12/15/2020 1:07 PM CDT documented as of this encounter Care Teams Picker And Sorter Load And Unload Relationship Specialty Start Date End Date Juanis Levi PCP - General Addiction Medicine 06/29/[address] [place] [phone] Stephani Pina APRN RETAIL ASSET PROTECTION SPECIALIST Assigned PCP 02/25/21 [address] [place], [place] [phone] Elsa Yeh, RN Registered Nurse Infectious Diseases 07/25/21 documented as of this encounter
--- OUTSIDE RECORDS SUMMARY | 2021-12-13 12:31 | XMS_ITS | Encounter Summary ---
:1980 Author Organization [place] Address [address] [place] [address] Care Team Providers Name Role Phone Stephani Pina SHEET METAL DUCT INSTALLER HELPER CYANIDE FURNACE OPERATOR Unavailable Juanis Levi Primary Care Provider Elsa Yeh RN Unavailable Unavailable Reason for Referral Diagnostic Imaging XR (Routine) - Pending Review Specialty Diagnoses / Procedures Referred By Contact Refer red To Contact Diagnoses Ankle pain Rogelio Treadwell MD Procedures XR Ankle Right G/E 3 Views 9 [place], [place] [address] Referral ID Status Reason Start Date Expiration Date Visits V isits Requested Authorized [id number] Pending 07/31/2021 07/31/2022 1 1 Review Encounter Details Date Type Department Care Team Description 07/31/2021 Orders Only [facility] Rogelio Treadwell pa in (Primary Orthopedic Clinic MD August Dx) [address] 909 [place], [place] 4th Floor [address] [place], [place] [phone] (Wo rk) [address] [phone] Social History Tobacco Use Types Packs/Day Years Used Date Smoking Tobacco: Every Day Cigarettes 0.3 10 Smokeless Tobacco: Never Comments: 5-8 cigarettes a day Alcohol Use Standard Drinks/Week Comments Not Currently 0 (1 standard drink = 0.6 oz pure alcoho l) sober since 08/2020 Sex Assigned at Date Recorded Female 01/14/2020 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 documented as of this encounter Plan of Treatment Upcoming Encounters Date Type Specialty Care Team Description 12/20/2021 Office Visit Wound Care Luis Camara DPM 909 [place], [place] [phone] (Wo rk) 01/21/2022 PRE VISIT Gastroenterology Landon Warren, *-*INCOMIN G RECORDS*-* MD Luis Fernando [address] [place] [address] (Wo rk) 01/21/2022 Office Visit Gastroenterology Juanis Levi 2450 [place] [phone] Luis Fernando Miles MD [address] [place] [address] documented as of this encounter Results [...] documented as of this encounter Care Teams Intensivist Relationship Specialty Start Date End Date Juanis Levi PCP - General Addiction Medicine 06/29/21 [facility]0 [place] [phone] Stephani Pina APRN CYANIDE FURNACE OPERATOR Assigned PCP 02/25/[address] [place] [address] Elsa Yeh, RN Registered Nurse Infectious Diseases 07/25/21 documented as of this encounter
--- OUTSIDE RECORDS SUMMARY | 2021-12-13 12:31 | XMS_ITS | Encounter Summary ---
:1980 Author Organization [place] Address [address] [place] [address] Care Team Providers Name Role Phone Stephani Pina FARZANA DYE COLORIST FORMULATOR Unavailable [phone] Juanis Levi Primary Care Provider Elsa Yeh RN Unavailable Unavailable Rogelio Treadwell MD Unavailable [phone] Reason for Visit Auth/Cert Specialty Diagnoses / Procedures Referred By Contact Refer red To Contact Surgery Diagnoses Non-healing surgical wound, subsequent encounter Non-healing surgical wound, subsequent encounter [T81.89XD] [facility] Main Or Procedures HC SPLIT GRFT,HEAD,FAC,HAND,FEET <100SQCM Right ankle split skin graft from right.left thigh [address] [facility] 5th [place] [address] Phone: Fax: Referral ID Status Reason Start Date Expiration Date Visits Requ ested Visits Authorized [id number] 1 1 Encounter Details Date Type Department Care Team Description 08/15/2021 Surgery [facility] Main Camryn Christina t ankle split skin OR Keith Owen MD graft from right thigh [address] [place] [address] [facility] 5th Floor 195 [place] [address] [phone] (Wo rk) Surgery Details Date/Time Status Location [...] on DOS. PT CURRENTLY RESID ES AT [facility]: PLEASE CALL [phone] WITH ANY INSTRUCTIONS AND T LIZET CHANGES FOR 08/15 SURGERY. THEY SET UP TRANSPORT ETC. [facility] Admission No charito since beginning of July; [...] at Date Recorded Female 01/14/2020 10:57 AM EXTRUDER OPERATOR COVID-19 Exposure Response Date Recorded In [...] concern. For Medical Questions, Please Call: ? [phone], Friday - Friday, 8 a.m. - 4:30 p.m. ? After hours and on weekends, call Hospital Paging at [phone] and ask for the Plastic Surgeon director of consumer marketing. [facility] Home Care Following Anesthesia For 24 hours after surgery: Get plenty of rest. A responsible adult must stay with you for at least 24 hours after you leave [facility]. Do not drive or use heavy [...] doctor is: Dr. Betty Christina, Plastic Surgery: [phone] Or dial [phone] and ask for the resident director of consumer marketing for: Plastics For emergency care, call the: [facility]: [phone] (TTY for hearing impaired: [phone]) documented in this encounter Medications at Time [...] CDT Report given to GENARO Rooney at [facility]. Camryn Christina MD - 08/15/2021 1:55 [...] curette to curettage the biofilm and granulation carpet layer. Hemostasis was ensured, and the skin [...] Camryn Christina MD MT: JENSHAMAR/CMQA1 Name: STEPHANI REDDY MRN: [id number] Account: [id number] : 1980 Procedure Date: 08/15/2021 Document: [id number] Brief Op Note - Christiano Santacruz MD - 08/15/2021 3:24 PM CDT [facility] Brief Operative Note Pre-operative diagnosis: Non-healing surgical [...] Office Visit Wound Care Luis Camara, [place] [address] [place], [place] [phone] (Wo rk) 01/21/2022 PRE VISIT Gastroenterology Landon Warren, *-*WANDAIN G RECORDS*-* MD Luis Fernando [address] [phone] (Wo rk) 01/21/2022 Office Visit Gastroenterology Juanis Levi 2450 [place] [address] Luis Fernando Miles MD [address] [place] [address] documented as of this encounter Procedures Procedure Name Priority Date/Time Associated Diagnosis Comme nts SURGICAL PROCUREMENT, 08/15/2021 2:16 PM CDT Non-heali ng surgical GRAFT, SKIN, wound, subsequent SPLIT-THICKNESS, encounter EXTREMITY Special Needs Wound VAC ordered and approv ed. Please make sure patient brings wound vac and all supplies with on DOS. [facility] PLEASE CALL [phone] WITH ANY I NSTRUCTIONS AND TIME CHANGES FOR 08/15 SURGERY. THEY SET UP TRANSPORT ETC. Cristin [facility] Admission Notes since beginning of July; Dr. [...] documented as of this encounter Care Teams Morning News Anchor Relationship Specialty Start Date End Date Juanis Levi PCP - General Addiction Medicine 06/29/21 2450 [place] [phone] Stephani Pina, Assigned PCP 02/25/21 CONCRETE BOOM OPERATOR DYE COLORIST FORMULATOR [address] [place], [place] [address]84 Elsa Yeh, Registered Nurse Infectious Diseases 07/25/21 RN Rogelio Treadwell Assigned Musculoskeletal 08/04/21 MD August Provider 909 [place], [place] 443095 documented as of this encounter
--- OUTSIDE RECORDS SUMMARY | 2021-12-13 12:31 | XMS_ITS | Encounter Summary ---
:1980 Author Organization [place] Address [address] [place] [address] Care Team Providers Name Role Phone Stephani Pina APRN ROADMASTER Unavailable [phone] Juanis Levi Primary Care Provider Encounter Details Date Type Department Care Team Description 07/19/[address] [facility] [place] w[place] [address] [place] [address] 4th [place], [place] [phone] Social History Tobacco Use Types Packs/Day Years Used Date Smoking Tobacco: Every Day Cigarettes 0.3 10 Smokeless Tobacco: Never Comments: 5-8 cigarettes a day Alcohol Use Standard Drinks/Week Comments Not Currently 0 (1 standard drink = 0.6 oz pure alcoho l) sober since 08/2020 Sex Assigned at Date Recorded Female 01/14/2020 10:57 AM OR RN documented as of this encounter Miscellaneous Notes Telephone Encounter - Rossana Carroll - 07/19/2021 12:53 PM CDT 07/19-Patient is currently inpatient, will call tomorrow to get her scheduled.-LN documented in this encounter Plan of Treatment Upcoming Encounters Date Type Specialty Care Team Description 12/20/2021 Office Visit Wound Care Luis Camara, [place] 909 [place] [address] (Wo rk) 01/21/2022 PRE VISIT Gastroenterology Landon Warren, *-*WANDAIN G RECORDS*-* MD Luis Fernando [address] [place] [address] [address] [place], [place] 901905 (Wo rk) 01/21/2022 Office Visit Gastroenterology Juanis Levi 2450 [place] [phone] Luis Fernando Miles MD [address] [place] [phone] documented as of this encounter Visit Diagnoses Not on filedocumented in this encounter Additional Health Concerns Infection Onset Date Last Indicated Resolved Time MRSAComment: Added from external infection. 11/07/201406/18 Assessment Noted Time PHQ-9 Depression Total Score: 2 12/15/2020 1:07 PM CDT documented as of this encounter Care Teams Sulfide Head Operator Relationship Specialty Start Date End Date Juanis Levi PCP - General Addiction Medicine 06/29/[address] [place] [phone] Stephani Pina, COMMERCIAL LINES UNDERWRITER ROADMASTER Assigned PCP 02/25/21 [facility] [address] [address] documented as of this encounter
--- OUTSIDE RECORDS SUMMARY | 2021-12-13 12:31 | XMS_ITS | Encounter Summary ---
:1980 Author Organization [place] Address [address] [place] [address] Care Team Providers Name Role Phone Stephani Pina FLIGHT CONTROL SPECIALIST GOSPEL SINGER Unavailable Juanis Levi Primary Care Provider Elsa Yeh RN Unavailable Unavailable Reason for Visit Reason Comments Schedule Surgery Encounter Details Date Type Department Care Team Description 08/01/2021 Documentation Only [facility] Camryn Christina [facility] Surgery Plastic and MD [facility] [address] [place] [address] [address] [address] [place], [place] [phone] (Work) [phone] Social History Tobacco Use Types Packs/Day Years Used Date Smoking Tobacco: Every Day Cigarettes 0.3 10 Smokeless Tobacco: Never Comments: 5-8 cigarettes a day Alcohol Use Standard Drinks/Week Comments Not Currently 0 (1 standard drink = 0.6 oz pure alcoho l) sober since 08/2020 Sex Assigned at Date Recorded Female 01/14/2020 10:57 AM PARKING ASSISTANT COVID-19 Exposure Response Date Recorded In the last 10 days, have you been in contact with No / Unsu re 07/31/2021 1:25 PM CDT someone who was confirmed or suspected to have Coronavirus/COVID-19? documented as of this encounter Progress Notes Yessenia Marquez - 08/01/2021 10:05 AM CDT RN Manager Spa: Lesly Pina; [phone] Surgery is scheduled with Dr. Christina on [...] Visit Wound Care Luis Camara, [place] 909 [place], [place] 683365 (Wo rk) 01/21/2022 PRE VISIT Gastroenterology Landon Warren, *-*INCOMIN G RECORDS*-* MD Luis Fernando [address] [place] [address]555 (Wo rk) 01/21/2022 Office Visit Gastroenterology Juanis Levi 2450 [place] [phone] Luis Fernando Miles MD [address] [place] [address] documented as of this encounter Visit Diagnoses Not on filedocumented in this encounter Additional Health Concerns Infection Onset Date Last Indicated Resolved Time MRSAComment: Added from external infection. 11/07/201406/18 Assessment Noted Time PHQ-9 Depression Total Score: 2 12/15/2020 1:07 PM CDT documented as of this encounter Care Teams Reading Specialist Relationship Specialty Start Date End Date Juanis Levi PCP - General Addiction Medicine 06/29/[address] [place] [address] Stephani Pina APRN GOSPEL SINGER Assigned PCP 02/25/21 [address] [place], [place] [address] Elsa Yeh, RN Registered Nurse Infectious Diseases 07/25/21 documented as of this encounter
--- OUTSIDE RECORDS SUMMARY | 2021-12-13 12:31 | XMS_ITS | Encounter Summary ---
:1980 Author Organization [place] Address [address] [place] [address] Care Team Providers Name Role Phone Stephani Pina DEFECT CUTTER NEWSPAPER DELIVERY DRIVER Unavailable [phone] Juanis Levi Primary Care Provider Elsa Yeh RN Unavailable Unavailable Reason for Visit Reason Onset Date Comments Previsit 07/31/2021 Encounter Details Date Type Department Care Team Description 07/31/2021 PRE VISIT [facility] Rogelio Treadwell, Previsit Orthopedic Clinic [address] [place] [phone] Social History Tobacco Use Types Packs/Day Years Used Date Smoking Tobacco: Every Day Cigarettes 0.3 10 Smokeless Tobacco: Never Comments: 5-8 cigarettes a day Alcohol Use Standard Drinks/Week Comments Not Currently 0 (1 standard drink = 0.6 oz pure alcoho l) sober since 08/2020 Sex Assigned at Date Recorded Female 01/14/2020 10:57 AM AGRICULTURAL AGENT documented as of this encounter Miscellaneous Notes Telephone Encounter - Anabelle Hamilton - 07/26/2021 11:08 AM CDT DIAGNOSIS: 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 [place] 12.4.19 R ankle 11.21.05 R ankle Action 6.9.22 11:12 AM KAVEH Action Taken Called [place] fim desk and LVM for image Action July 27, 2021 4:33 PM MT Action Taken CSS recvd and resolved imgs to PACS. documented in this encounter Plan of Treatment Upcoming Encounters Date Type Specialty Care Team Description 12/20/2021 Office Visit Wound Care Luis Camara, [place] 909 [place], [place] [address]725 (Wo rk) 01/21/2022 PRE VISIT Gastroenterology Landon Warren, *-*WANDAIN G RECORDS*-* MD Luis Fernando [address] [place] [address] 869145 (Wo rk) 01/21/2022 Office Visit Gastroenterology Juanis Levi [address] [place] [address] Luis Fernando Miles MD [address] [place] [address] 616875 documented as of this encounter Visit Diagnoses Not on filedocumented in this encounter Additional Health Concerns Infection Onset Date Last Indicated Resolved Time MRSAComment: Added from external infection. 11/07/201406/18 Assessment Noted Time PHQ-9 Depression Total Score: 2 12/15/2020 1:07 PM CDT documented as of this encounter Care Teams Dials Inspector Relationship Specialty Start Date End Date Juanis Levi PCP - General Addiction Medicine 06/29/[address] [place] [phone] Stephani Pina, DEFECT CUTTER NEWSPAPER DELIVERY DRIVER Assigned PCP 02/25/21 [address] [place] [address] Elsa Yeh, RN Registered Nurse Infectious Diseases 07/25/21 documented as of this encounter
--- OUTSIDE RECORDS SUMMARY | 2021-12-13 12:31 | XMS_ITS | Encounter Summary ---
:1980 Author Organization [place] Address [address] [place] [address] Care Team Providers Name Role Phone Stephani Pina APRN ENGINEERING AND DEVELOPMENT DIRECTOR Unavailable [phone] Juanis Levi Primary Care Provider Elsa Yeh RN Unavailable Unavailable Rogelio Treadwell MD Unavailable [phone] Encounter Details Date Type Department Care [...] at Date Recorded Female 01/14/2020 10:57 AM EDUCATION NURSE COVID-19 Exposure Response Date Recorded In the last 10 days, have you been in contact with No / Unsu re 08/15/2021 12:42 PM CDT someone who was confirmed or suspected to have Coronavirus/COVID-19? documented as of this encounter Plan of Treatment Upcoming Encounters Date Type Specialty Care Team Description 12/20/2021 Office Visit Wound Care Luis Camara, [place] 909 [place] [address] (Wo rk) 01/21/2022 PRE VISIT Gastroenterology Landon Warren, *-*WANDAIN G RECORDS*-* MD Luis Fernando 6 [facility] 2A [place], [place] [address]75 (Wo rk) 01/21/2022 Office Visit Gastroenterology Juanis Levi 2450 [place] [address] Luis Fernando Miles MD 6 [facility] 2A [place], [place] 4458[address] documented as of this encounter Visit Diagnoses Not on filedocumented in this encounter Additional Health Concerns Infection Onset Date Last Indicated Resolved Time MRSAComment: Added from external infection. 11/07/201406/18 Assessment Noted Time PHQ-9 Depression Total Score: 2 12/15/2020 1:07 PM CDT documented as of this encounter Care Teams Ream Cutter Relationship Specialty Start Date End Date Juanis Levi PCP - General Addiction Medicine 06/29/[address] [place] [address] Stephani Pina, Assigned PCP 02/25/21 SALESPERSON NECKTIES ENGINEERING AND DEVELOPMENT DIRECTOR [address] [place], [place] [address] Elsa Yeh, Registered Nurse Infectious Diseases 07/25/21 RN Rogelio Treadwell Assigned Musculoskeletal 08/04/21 MD August Provider 909 [place], [place] [phone] documented as of this encounter
--- OUTSIDE RECORDS SUMMARY | 2021-12-13 12:31 | XMS_ITS | Encounter Summary ---
:1980 Author Organization [place] Address [address] [place] [address] Care Team Providers Name Role Phone Stephani Pian FARZANA SLURRY MIXER Unavailable [phone] Juanis Levi Primary Care Provider Elsa Yeh RN Unavailable Unavailable Reason for Visit Diagnostic Imaging XR (Routine) - Pending Review Specialty Diagnoses / Procedures Referred By Contact Refer red To Contact Diagnoses Ankle pain Rogelio Treadwell MD Procedures XR Ankle Right G/E [address] [place] [address] 5 Referral ID Status Reason Start Date Expiration Date Visits V isits Requested Authorized [id number] Pending 07/31/2021 07/31/2022 1 1 Review Encounter Details Date Type Department Care Team Description 07/31/2021 Ancillary Procedure [facility] Rogelio Treadwell nkle pain Orthopedic Xray MD August [address] 9[address] [place], [place] 4th Floor [address] [place], [place] [phone] (Wo rk) [address] [phone] Social History Tobacco Use Types Packs/Day Years Used Date Smoking Tobacco: Every Day Cigarettes 0.3 10 Smokeless Tobacco: Never Comments: 5-8 cigarettes a day Alcohol Use Standard Drinks/Week Comments Not Currently 0 (1 standard drink = 0.6 oz pure alcoho l) sober since 08/2020 Sex Assigned at Date Recorded Female 01/14/2020 10:57 AM PATTERN TECHNICIAN COVID-19 Exposure Response Date Recorded In the last 10 days, have you been in contact with No / Unsu re 07/31/2021 1:25 PM CDT someone who was confirmed or suspected to have Coronavirus/COVID-19? documented as of this encounter Plan of Treatment Upcoming Encounters Date Type Specialty Care Team Description 12/20/2021 Office Visit Wound Care Luis Camara, [place] 909 [place], [place] 766065 (Wo rk) 01/21/2022 PRE VISIT Gastroenterology Landon Warren, *-*HEATHER Barriga RECORDS*-* MD Luis Fernando [address] [place] [phone] (Wo rk) 01/21/2022 Office Visit Gastroenterology Juanis Levi 2450 [place] [phone] Luis Fernando Miles MD [address] [place] [address] 924075 documented as of this encounter Procedures Procedure [...] documented as of this encounter Care Teams Analytical Data Scientist Relationship Specialty Start Date End Date Juanis Levi PCP - General Addiction Medicine 06/29/21 [facility] [place] [phone] Stephani Pina APRN SLURRY MIXER Assigned PCP 02/25/[address] [place] [address] Elsa Yeh, RN Registered Nurse Infectious Diseases 07/25/21 documented as of this encounter
--- OUTSIDE RECORDS SUMMARY | 2021-12-13 12:31 | XMS_ITS | Encounter Summary ---
:1980 Author Organization [place] Address [address] [place] [address] Care Team Providers Name Role Phone Stephani Pina FARZANA FINANCIAL RECRUITER Unavailable [phone] Juanis Levi Primary Care Provider Elsa Yeh RN Unavailable Unavailable Rogelio Treadwell MD Unavailable [phone] Reason for Visit Auth/Cert Specialty Diagnoses / Procedures Referred By Contact Refer red To Contact Surgery Diagnoses Non-healing surgical wound, subsequent encounter Non-healing surgical wound, subsequent encounter [T81.89XD] [facility] Main Or Procedures HC SPLIT GRFT,HEAD,FAC,HAND,FEET <100SQCM Right ankle split skin graft from right.left thigh 909 [facility] 5th [place] [address] Phone: Fax: Referral ID Status Reason Start Date Expiration Date Visits Requ ested Visits Authorized [id number] 1 1 Encounter Details Date Type Department Care Team Description [facility] OR Keith Owen MD wound, subsequent [address] [place] [address] [address] SE [facility] 195 5th [address] [place], [place] [address] Social History Tobacco Use Types Packs/Day Years Used Date Smoking Tobacco: Former Cigarettes 0.3 10 Smokeless Tobacco: Never Comments: 5-8 cigarettes a day (hasn't s moked since in transitional care 07/23/21) Alcohol Use Standard Drinks/Week Comments Not Currently 0 (1 standard drink = 0.6 oz pure alcoho l) sober since 05/08 Sex Assigned at Date Recorded Female 01/14/2020 10:57 AM RABBIT FANCIER COVID-19 Exposure Response Date Recorded In the [...] concern. For Medical Questions, Please Call: ? [phone], Friday - Friday, 8 a.m. - 4:30 p.m. ? After hours and on weekends, call Hospital Paging at [phone] and ask for the Plastic Surgeon lamination operator. [facility] Home Care Following Anesthesia For 24 hours after surgery: Get plenty of rest. A responsible adult must stay with you for at least 24 hours after you leave [facility]. Do not drive or use heavy [...] doctor is: Dr. Betty Christina, Plastic Surgery: [phone] Or dial [phone] and ask for the resident lamination operator for: Plastics For emergency care, call the: [facility] Emergency Department: [phone] (TTY for hearing impaired: [phone]) documented in this encounter Medications at Time [...] CDT Report given to GENARO Rooney at [facility]. Camryn Christina MD - 08/15/2021 1:55 PM [...] curette to curettage the biofilm and granulation lacrosse player. Hemostasis was ensured, and the skin graft [...] MD MT: JENSHAMAR/CMQA1 Name: STEPHANI KING Account: [id number] : 1980 Procedure Date: 08/15/2021 Document: [id number] Brief Op Note - Christiano Santacruz MD - 08/15/2021 3:24 PM CDT [facility] Brief Operative Note Pre-operative diagnosis: [...] Visit Wound Care Luis Camara DPM 909 [place], [place] 577875 (Wo rk) 01/21/2022 PRE VISIT Gastroenterology Landon Warren, *-*WANDAIN G RECORDS*-* MD Luis Fernando [address] [place] [address] [phone] (Wo rk) 01/21/2022 Office Visit Gastroenterology Juanis Levi [facility] [place] [phone] Luis Fernando Miles MD [address] [place] [address] documented as of this encounter Procedures Procedure Name Priority Date/Time Associated Diagnosis Comme nts SURGICAL PROCUREMENT, 08/15/2021 2:16 PM CDT Non-heali ng surgical GRAFT, SKIN, wound, subsequent SPLIT-THICKNESS, encounter EXTREMITY Special Needs Wound VAC ordered and approv ed. Please make sure patient brings wound vac and all supplies with on DOS. SAMMY GALEAS RESIDES AT [facility]: PLEASE CALL [phone] WITH ANY I NSTRUCTIONS AND TIME CHANGES FOR 08/15 SURGERY. THEY SET UP TRANSPORT ETC. Cristin [facility] Admission Notes since beginning of [...] documented as of this encounter Care Teams Attendant Lodging Facilities Relationship Specialty Start Date End Date Juanis Levi PCP - General Addiction Medicine 06/29/21 2450 [place] [phone] Stephani Pina, Assigned PCP 02/25/21 SENIOR APPLICATIONS ENGINEER FINANCIAL RECRUITER [address] [facility] 700 [place] [address] Elsa Yeh, Registered Nurse Infectious Diseases 07/25/21 RN Rogelio Treadwell Assigned Musculoskeletal 08/04/21 MD August Provider 909 [place], [place] [address]215 documented as of this encounter
--- OUTSIDE RECORDS SUMMARY | 2021-12-13 12:31 | XMS_ITS | Encounter Summary ---
:1980 Author Organization [place] Address [address] [facility] [place] [address] Care Team Providers Name Role Phone Stephani Pina ENVIRONMENTAL MARKETER CLIP BOLTER AND WRAPPER Unavailable [phone] Juanis Levi Primary Care Provider Elsa Yeh RN Unavailable Unavailable Encounter Details Date Type Department Care Team Description 07/11/2021 Telephone [facility], W[facility] Healing Clinic [facility] [address] [facility] [address] [place] [address] Suite [facility] [phone] [place] [address] Social History Tobacco Use Types Packs/Day Years Used Date Smoking Tobacco: Every Day Cigarettes 0.3 10 Smokeless Tobacco: Never Comments: 5-8 cigarettes a day Alcohol Use Standard Drinks/Week Comments Not Currently 0 (1 standard drink = 0.6 oz pure alcoho l) sober since 08/2020 Sex Assigned at Date Recorded Female 01/14/2020 10:57 AM TOBACCO WETTER COVID-19 Exposure Response Date Recorded In the [...] Sebastian Mcknight Bohm, Cadieux or Ever at [facility] at [facility] for next available appointment. Is patient a TAYO lift? Factory Maintenance Manager to inquire Routing to after school program coordinator Ann Marie Eckert. Orders pending. Telephone [...] not manage these types of wounds in [place] and do not do wound vac dressing changes in clinic. Thank you, Marilynn Harrison RN documented in this encounter Plan of Treatment Upcoming Encounters Date Type Specialty Care Team Description 12/20/2021 Office Visit Wound Care Luis Camara DPM [address] [place], [place] [address] (Reinaldo molina) 01/21/2022 PRE VISIT Gastroenterology Landon Warren, *-*WANDAIN G RECORDS*-* MD Luis Fernando [address] [facility] [address] [place], [place] [address] (Reinaldo molina) 01/21/2022 Office Visit Gastroenterology Juanis Levi [address] [place] [phone] Luis Fernando Miles MD [address] [facility] [address] [place], [place] [address] documented as of this encounter Visit Diagnoses Diagnosis Leg ulcer, right, with unspecified sever ity (H) - Primary documented in this encounter Additional Health Concerns Infection Onset Date Last Indicated Resolved Time MRSAComment: Added from external infection. 11/07/201406/18 Assessment Noted Time PHQ-9 Depression Total Score: 2 12/15/2020 1:07 PM CDT documented as of this encounter Care Teams Scout Executive Relationship Specialty Start Date End Date Juanis Levi PCP - General Addiction Medicine 06/29/21 [address] [place] [phone] Stephani Pina, FARZANA CLIP BOLTER AND WRAPPER Assigned PCP 02/25/21 [address] [place], [place] [address] Elsa Yeh, RN Registered Nurse Infectious Diseases 07/25/21 documented as of this encounter
--- OUTSIDE RECORDS SUMMARY | 2021-12-13 12:31 | XMS_ITS | Encounter Summary ---
:1980 Author Organization [place] Address [facility] [place] [address] Care Team Providers Name Role Phone Stephani Pina SALES TEAM MANAGER FUR SEWER Unavailable [phone] Juanis Levi Primary Care Provider Elsa Yeh RN Unavailable Unavailable Encounter Details Date Type Department Care Team Description 07/31/2021 Orders Only M [facility] Camryn Christina surgical Plastic and MD Lexie wound, subsequent Reconstructive Surgery [address] en counter (Primary Clinic [facility] [address]x) [address] [place], [place] 4th Floor [address] [place] [address] [phone] [address] (Work) [phone] Social History Tobacco Use Types Packs/Day Years Used Date Smoking Tobacco: Every Day Cigarettes 0.3 10 Smokeless Tobacco: Never Comments: 5-8 cigarettes a day Alcohol Use Standard Drinks/Week Comments Not Currently 0 (1 standard drink = 0.6 oz pure alcoho l) sober since 08/2020 Sex Assigned at Date Recorded Female 01/14/2020 10:57 AM EDUCATION PROGRAM COORDINATOR documented as of this encounter Plan of Treatment Upcoming Encounters Date Type Specialty Care Team Description 12/20/2021 Office Visit Wound Care Luis Camara, [place] [address] [place] [address] (Wo rk) 01/21/2022 PRE VISIT Gastroenterology Landon Warren, *-*INCOMIN G RECORDS*-* MD Luis Fernando [address] [place] [address] [address] [place], [place] [phone] (Wo rk) 01/21/2022 Office Visit Gastroenterology Juanis Levi [address] [place] [address] Luis Fernando Miles MD [address] [place] [address] documented as of this encounter Visit Diagnoses Diagnosis Non-healing surgical wound, subsequent e ncounter - Primary documented in this encounter Additional Health Concerns Infection Onset Date Last Indicated Resolved Time MRSAComment: Added from external infection. 11/07/201406/18 Assessment Noted Time PHQ-9 Depression Total Score: 2 12/15/2020 1:07 PM CDT documented as of this encounter Care Teams Cash Register Mechanic Relationship Specialty Start Date End Date Juanis Levi PCP - General Addiction Medicine 06/29/[address] [place] [address] Stephani Pina APRN FUR SEWER Assigned PCP 02/25/21 [address] [facility] 700 [place], [place] [address] Elsa Yeh, RN Registered Nurse Infectious Diseases 07/25/21 documented as of this encounter
--- OUTSIDE RECORDS SUMMARY | 2021-12-13 12:31 | XMS_ITS | Encounter Summary ---
:1980 Author Organization [place] Address [address] [facility] [place] [address] Care Team Providers Name Role Phone Stephani Pina FARZANA ROADWAY ENGINEER Unavailable [phone] Juanis Levi Primary Care Provider Elsa Yeh RN Unavailable Unavailable Encounter Details Date Type Department Care Team Description 07/28/2021 Home Infusion [facility] Infusi on Suze Evans, [facility] [address] [facility] [address] [place], [place] [phone] [place] [address] [place] [address] (Wo rk) Social History Tobacco Use Types Packs/Day Years Used Date Smoking Tobacco: Every Day Cigarettes 0.3 10 Smokeless Tobacco: Never Comments: 5-8 cigarettes a day Alcohol Use Standard Drinks/Week Comments Not Currently 0 (1 standard drink = 0.6 oz pure alcoho l) sober since 08/2020 Sex Assigned at Date Recorded Female 01/14/2020 10:57 AM RESERVOIR ENGINEERING CONSULTANT documented as of this encounter Progress Notes Shawn July - 07/28/2021 9:44 AM CDT Therapy: IV Abx Insurance: [facility] Patient will have coverage for IV Abx through the [facility] Medicaid plan at 100% with a possible copay per dispense for the drug (Typically ranges from $0-$8) Please contact Intake with any questions, or In Basket pool, [facility] ([phone]). documented in this encounter Plan of Treatment Upcoming Encounters Date Type Specialty Care Team Description 12/20/2021 Office Visit Wound Care Luis Camara, [place] [address] [place] [address] (Wo rk) 01/21/2022 PRE VISIT Gastroenterology Landon Warren, *-*WANDAIN G RECORDS*-* MD Luis Fernando 516 [facility] 2A [place] [address] (Wo rk) 01/21/2022 Office Visit Gastroenterology Juanis Levi [address] [place] [address] Luis Fernando Miles MD [address] [address] documented as of this encounter Visit Diagnoses Not on filedocumented in this encounter Additional Health Concerns Infection Onset Date Last Indicated Resolved Time MRSAComment: Added from external infection. 11/07/201406/18 Assessment Noted Time PHQ-9 Depression Total Score: 2 12/15/2020 1:07 PM CDT documented as of this encounter Care Teams Entry Level Sales Consultant Relationship Specialty Start Date End Date Juanis Levi PCP - General Addiction Medicine 06/29/21 [address] [place] [address] Stephani Pina, FARZANA ROADWAY ENGINEER Assigned PCP 02/25/[address] [place], [place] [address] Elsa Yeh, RN Registered Nurse Infectious Diseases 07/25/21 documented as of this encounter
--- OUTSIDE RECORDS SUMMARY | 2021-12-13 12:31 | XMS_ITS | Encounter Summary ---
:1980 Author Organization [place] Address [address] [place] [address] Care Team Providers Name Role Phone Stephani Pina FARZANA CONTACT ACID PLANT OPERATOR HELPER Unavailable [phone] Juanis Levi Primary Care Provider Elsa [...] at Date Recorded Female 01/14/2020 10:57 AM STITCH BONDING 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 COVID-19 Exposure Response Date Recorded In the last 10 days, have you been in contact with No / Unsu re 07/31/2021 1:25 PM CDT someone who was confirmed or suspected to have Coronavirus/COVID-19? documented as of this encounter Plan of Treatment Upcoming Encounters Date Type Specialty Care Team Description 12/20/2021 Office Visit Wound Care Luis Camara DPM [address] [place] [address] (Wo rk) 01/21/2022 PRE VISIT Gastroenterology Landon Warren, *-*HEATHER Barriga RECORDS*-* MD Luis Fernando 516 [facility] 2A [place] [address] (Wo rk) 01/21/2022 Office Visit Gastroenterology Juanis Levi [address] [place] [address] Luis Fernando Miles MD 516 [facility] 2A [place], [place] [address] documented as of this encounter Visit Diagnoses Not on filedocumented in this encounter Additional Health Concerns Infection Onset Date Last Indicated Resolved Time MRSAComment: Added from external infection. 11/07/201406/18 Assessment Noted Time PHQ-9 Depression Total Score: 2 12/15/2020 1:07 PM CDT documented as of this encounter Care Teams Automatic Clipper Relationship Specialty Start Date End Date Juanis Levi PCP - General Addiction Medicine 06/29/21 Critical access [facility]0 [place] [phone] Stephani Pina, PANEL SAW OPERATOR CONTACT ACID PLANT OPERATOR HELPER Assigned PCP 02/25/21 606 [facility] 700 [place], [place] [address] Elsa Yeh, RN Registered Nurse Infectious Diseases 07/25/21 documented as of this encounter
--- OUTSIDE RECORDS SUMMARY | 2021-12-13 12:31 | XMS_ITS | Encounter Summary ---
:1980 Author Organization [place] Address [address] [place] [address] Care Team Providers Name Role Phone Stephani Pina FARZANA ADJUNCT COMMUNICATIONS FACULTY MEMBER Unavailable [phone] Juanis Levi Primary Care Provider Elsa Yeh RN Unavailable Unavailable Rogelio Treadwell MD Unavailable [phone] Encounter Details Date Type Department Care Team Description 08/10/2021 Telephone [facility] Plastic and Camryn Christina, Reconstructive Surgery Clinic [place] [phone] [address] [place] [address] 5-[address]00 [phone] Social History Tobacco Use Types Packs/Day Years Used Date Smoking Tobacco: Every Day Cigarettes 0.3 10 Smokeless Tobacco: Never Comments: 5-8 cigarettes a day Alcohol Use Standard Drinks/Week Comments Not Currently 0 (1 standard drink = 0.6 oz pure alcoho l) sober since 08/2020 Sex Assigned at Date Recorded Female 01/14/2020 10:57 AM BUFF WHEEL FABRICATOR COVID-19 Exposure Response Date Recorded In the [...] Regarding: RE: Pre-Op and Current Admission at [facility] I did call them about pre-op and COVID. Could you please call and give them any info they need aboutlogistics of when and where to be? It is [phone] Lesly ----- Message ----- From: Yessenia Marquez Sent: 08/09/2021 5:02 PM CDT To: Lesly Pina RN Subject: RE: Pre-Op and Current Admission at [facility] This is the TCU that you called! Do I need to call? Yessenia ----- Message ----- From: Lesly Pina RN Sent: 08/09/2021 4:13 PM CDT To: Camryn Christina MD, Gucci Moses, # Subject: RE: Pre-Op and Current Admission at [facility] I spoke with the staff at the [...] Subject: RE: Pre-Op and Current Admission at [facility] Adding our Lesly MONROYAlma Casas ----- Message ----- From: Gucci Moses Sent: 08/09/2021 11:23 AM CDT To: Camryn Christina MD, Yessenia Marquez Subject: Pre-Op and Current Admission at [facility] Dr. Christina, I am doing chart review for next week and noticed this patient is currently admitted at the [facility] transitional care unit (which I assume is a floor within the hospital) since 07/23/21. I asked the nursing staff here at the [facility] how to coordinate her care and they [...] Visit Wound Care Luis Camara, CALVIN [address] [place] [address] (Wo jesse) 01/21/2022 PRE VISIT Gastroenterology Landon Warren, *-*WANDAIN G RECORDS*-* MD Luis Fernando [address] [place] [phone] (Reinaldo molina) 01/21/2022 Office Visit Gastroenterology Juanis Levi [address] [place] [address] Luis Fernando Miles MD [address] [place] [address] documented as of this encounter Visit Diagnoses Not on filedocumented in this encounter Additional Health Concerns Infection Onset Date Last Indicated Resolved Time MRSAComment: Added from external infection. 11/07/201406/18 Assessment Noted Time PHQ-9 Depression Total Score: 2 12/15/2020 1:07 PM CDT documented as of this encounter Care Teams Cane Loader Relationship Specialty Start Date End Date Juanis Levi PCP - General Addiction Medicine 06/29/21 [address] [place] [phone] Stephani Pina, Assigned PCP 02/25/21 PREDATORY ANIMAL EXTERMINATOR ADJUNCT COMMUNICATIONS FACULTY MEMBER [address] [facility] 700 [place] [address] Elsa Yeh, Registered Nurse Infectious Diseases 07/25/21 RN Rogelio Treadwell Assigned Musculoskeletal 08/04/21 MD August Provider [address] [place] [address] documented as of this encounter
--- OUTSIDE RECORDS SUMMARY | 2021-12-13 12:31 | XMS_ITS | Encounter Summary ---
:1980 Author Organization [place] Address [address] [place] [address] Care Team Providers Name Role Phone Stephani Pina FARZANA PARLIAMENTARY COUNSEL Unavailable [phone] Juanis Levi Primary Care Provider Elsa Yeh RN Unavailable Unavailable Rogelio Treadwell MD Unavailable [phone] Reason for Visit Auth/Cert Specialty Diagnoses / Procedures Referred By Contact Refer red To Contact Surgery Diagnoses Non-healing surgical wound, subsequent encounter Non-healing surgical wound, subsequent encounter [T81.89XD] [facility] Main Or Procedures HC SPLIT GRFT,HEAD,FAC,HAND,FEET <100SQCM Right ankle split skin graft from right.left thigh 909 [facility] 5th [place] [address] Phone: Fax: Referral ID Status Reason Start Date Expiration Date Visits Requ ested Visits Authorized [id number] 1 1 Encounter Details Date Type Department Care Team Description 08/15/2021 Anesthesia Event [facility] Karen Garnett MD 420 [facility] [address] [place] [address] OR Roosevelt Faye MD 420 [place] [address] [address] Anesthesia Record Procedure Summary Procedure [...] Placement Rubia Pina, Km Pina, Time: 1426 DATE PITTER CELLULAR BIOLOGIST DATE PITTER CELLULAR BIOLOGIST documented in this encounter Social History Tobacco [...] Date Recorded Female 01/14/2020 10:57 AM PRODUCTION SOUND MIXER COVID-19 Exposure Response Date Recorded In [...] So Luciano MD; Location: [facility] OR ??? LIFE SCIENCES MANAGER SURGERY ??? IRRIGATION AND DEBRIDEMENT FOOT, COMBINED [...] and realistic alternatives discussed. Questions answered and patient/visitor services representative(s) expressed understanding. - Discussed: - Discussed [...] Miscellaneous Notes Anesthesia Care Transfer Note - Yovani, Rubia Mendoza APRN CRNA - 08/15/2021 3:34 PM CDT [...] Visit Wound Care Luis Camara DPM [address]09 [place] [address] (Wo rk) 01/21/2022 PRE VISIT Gastroenterology Landon Warren, *-*WANDAIN G RECORDS*-* MD Luis Fernando [address] [address] (Wo rk) 01/21/2022 Office Visit Gastroenterology Juanis Levi 2450 [place] [phone] Luis Fernando Miles MD 6 [facility] 2A [place] [address] documented as of this encounter Visit Diagnoses [...] documented as of this encounter Care Teams Motor And Chassis Inspector Relationship Specialty Start Date End Date Juanis Levi PCP - General Addiction Medicine 06/29/21 [address] [place] [phone] Stephani Pina, Assigned PCP 02/25/21 DATE PITTER PARLIAMENTARY COUNSEL [address] [place] [address] Elsa eYh, Registered Nurse Infectious Diseases 07/25/21 RN Rogelio Treadwell Assigned Musculoskeletal 08/04/21 MD August Provider 9 [place], [place] [address] documented as of this encounter
--- OUTSIDE RECORDS SUMMARY | 2021-12-13 12:32 | XMS_ITS | Encounter Summary ---
:1980 Author Organization [facility] Address [address] [place] [address] Care Team Providers Name Role Phone Deann Pina APRN FLUE CLEANER Unavailable [phone] Juanis Mckenzie Primary Care Provider Reason for Visit Auth/Cert Specialty Diagnoses / Procedures Referred By Contact Refer red To Contact Med Surg Diagnoses Complicated Osteomyelitis Ur Orth[facility] [address] [place] [address] Phone: Fax: Referral ID Status Reason Start Date Expiration Date Visits Requ ested Visits Authorized [id number] 1 1 Encounter Details Date Type Department Care Team Description 07/07/2021 Surgery [facility] IRRIGATION AND PeriOp Services MD Flo DEBRIDEMENT, FOOT and [address] [place] [address] [address] [facility] [address] ankle, [place] [address] [place] [address] exchange [phone] (Wo rk) Surgery Details Date/Time Status Location [...] Date Recorded Female 01/14/2020 10:57 AM FIELD APPLICATIONS SPECIALIST documented as of this encounter Last [...] Howell MD - 07/23/2021 7:40 AM CDT [facility] Hospitalist Discharge Summary Date of Admission: 07/06/2021 Date of Discharge: 07/23/2021 Discharging Provider: Elizabeth Howell MD Discharge Service: Hospitalist Service, [facility] TEAM 17 Discharge Diagnoses # R [...] Follow-ups Needed After Discharge Follow-up Appointments Adult [facility] Follow-up and recommended labs and tests Follow up with Dr Camara or Morgan with Podiatry in 1-2 weeks. Clinic phone number is [phone] Follow up with Plastic Surgery in 2 weeks. Follow up with infectious disease 4-6 weeks. Follow-up Labs: Weekly CBC w diff, BMP, CRP. Please have labs faxed to ID clinic. Appointments on [place] and/or [facility] (with [facility] or [facility] provider or service). Call [phone] if you haven't heard regarding these appointments [...] anxiety, and tobacco abuse??admitted on 07/06/21 from [facility] for further care of R ankle osteomyelitis by Orthopedics, Plastics, and Infectious Disease.? 07/19: Per patient request: Increased Subutex dose to 8 mg 3 times daily, BUILDING SERVICES TECHNICIAN dose. Schedule Robaxin 750 3 times daily. [...] epic for recommendations.. ??>Pain control: Currently controlled. -Continue??BUILDING SERVICES TECHNICIAN??Suboxone 8mg tid ??; scheduled APAP 975mg TID, [...] allergenic polyurethane foam dressings (Mepitac tape, Sorbiview, [id number]) over occlusive adhesive semipermeable gauze dressings; WOC [...] improving.?? # Alcohol use disorder.?? HCV quant 393216??at OSH. ??AST 117, ALT 44, and AP [...] with periods of confusion early in admission. ??Hargill to be??toxic vs metabolic??/ ?withdrawal, infection, sepsis. [...] Stay INTERNAL MEDICINE ADULT IP CONSULT FOR [facility]SU PHYSICAL THERAPY ADULT IP CONSULT OCCUPATIONAL THERAPY ADULT IP CONSULT INFECTIOUS DISEASE [facility] ADULT IP CONSULT ORTHOPAEDIC SURGERY ADULT/PEDS IP CONSULT WOUND OSTOMY CONTINENCE NURSE IP CONSULT SOCIAL WORK IP CONSULT PLASTIC SURGERY IP CONSULT WOUND OSTOMY CONTINENCE NURSE IP CONSULT PHARMACY TO DOSE [facility] DERMATOLOGY IP CONSULT Code Status Full Code Time Spent on this Encounter IJaime MD, personally saw the patient today and spent greater than 30 minutes discharging this patient. Elizabeth Howell MD [facility] [address] [place] [phone] Physical Exam Vital Signs: Temp: 98.6 ??F [...] performing Friday and Friday VAC changes Adult [facility] Follow-up and recommended labs and tests Follow up with Dr Camara or Morgan with Podiatry in 1-2 weeks. Clinic phone number is [phone] Follow up with Plastic Surgery in 2 weeks. Follow up with infectious disease 4-6 weeks. Follow-up Labs: Weekly CBC w diff, BMP, CRP. Please have labs faxed to ID clinic. Appointments on [place] and/or [facility] (with [facility] or [facility] provider or service). Call [phone] if you haven't heard regarding these appointments [...] MD Echo Complete Value LVEF 55-60% Narrative [id number]^BUTCH^JAIME [facility] [address] [place] [address] Name: DEANN KING : 1980 Study Date: 07/08/2021 12:07 PM Age: 40 yrs Gender: Female Patient Location: [facility] Reason For Study: Endocarditis Ordering Physician: JAIME [...] Qty: 90 tablet, Refills: 0 Comments: JAMES: [id number] Associated Diagnoses: Opioid use disorder, severe, in [...] Jaime Rae MD Discharge Service: Hospitalist Service, [facility] TEAM 17 Discharge Diagnoses # R [...] Follow-ups Needed After Discharge Follow-up Appointments Adult [facility] Follow-up and recommended labs and tests Follow up with Dr Camara or Morgan with Podiatry in 1-2 weeks. Clinic phone number is [phone] Follow up with Plastic Surgery in 2 weeks. Follow up with infectious disease 4-6 weeks. Follow-up Labs: Weekly CBC w diff, BMP, CRP. Please have labs faxed to ID clinic. Appointments on [place] and/or [facility] (with [facility] or [facility] provider or service). Call [phone] if you haven't heard regarding these appointments [...] anxiety, and tobacco abuse??admitted on 07/06/21 from [facility] for further care of R ankle osteomyelitis by Orthopedics, Plastics, and Infectious Disease.? 07/19: Per patient request: Increased Subutex dose to 8 mg 3 times daily, BUILDING SERVICES TECHNICIAN dose. Schedule Robaxin 750 3 times daily. [...] epic for recommendations.. ??>Pain control: Currently controlled. -Continue??BUILDING SERVICES TECHNICIAN??Suboxone 8mg tid ??; scheduled APAP 975mg TID, [...] allergenic polyurethane foam dressings (Mepitac tape, Sorbiview, [id number]) over occlusive adhesive semipermeable gauze dressings; WOC [...] improving.?? # Alcohol use disorder.?? HCV quant 928473??at OSH. ??AST 117, ALT 44, and AP [...] with periods of confusion early in admission. ??Hargill to be??toxic vs metabolic??2/2 ?withdrawal, infection, sepsis. [...] Stay INTERNAL MEDICINE ADULT IP CONSULT FOR [facility] PHYSICAL THERAPY ADULT IP CONSULT OCCUPATIONAL THERAPY ADULT IP CONSULT INFECTIOUS DISEASE [facility] ADULT IP CONSULT ORTHOPAEDIC SURGERY ADULT/PEDS IP [...] minutes discharging this patient. Jaime Rae MD [facility] [address] [place] [phone] Physical Exam Vital Signs: Temp: 98.3 ??F [...] performing Friday and Friday VAC changes Adult [facility] Follow-up and recommended labs and tests Follow up with Dr Camara or Morgan with Podiatry in 1-2 weeks. Clinic phone number is [phone] Follow up with Plastic Surgery in 2 weeks. Follow up with infectious disease 4-6 weeks. Follow-up Labs: Weekly CBC w diff, BMP, CRP. Please have labs faxed to ID clinic. Appointments on [place] and/or [facility] (with [facility] or [facility] provider or service). Call [phone] if you haven't heard regarding these appointments [...] MD Echo Complete Value LVEF 55-60% Narrative [id number]^BUTCH^JAIME [facility] [address] [place] [address] Name: DEANN KING : 1980 Study Date: 07/08/2021 12:07 PM Age: 40 yrs Gender: Female Patient Location: [facility] Reason For Study: Endocarditis Ordering Physician: JAIME [...] Qty: 90 tablet, Refills: 0 Comments: SIMRANBHARAT: [id number] Associated Diagnoses: Opioid use disorder, severe, in [...] with vac drape prior to applying sponge steward/stewardess night to assess integrity of dressing and ensure [...] original note were not included. [facility] Nurse Inpatient Assessment Today's Assessment: Right [...] with vac drape prior to applying sponge steward/stewardess night to assess integrity of dressing and ensure [...] to notify the Provider(s) and re-consult the [facility] Nurse if new skin concern. DATA: Current [...] 19 Lisa Chandler RN, CWOCN Dept. Pager: [phone] Dept. Office Number: [phone] Tiffanie Figueroa RN - 07/23/2021 10:17 AM CDT Care Management Discharge Note Discharge Date: 07/23/2021 Discharge Disposition: TCU PAS Confirmation Code: [id number] Education Provided on the Discharge Plan: yes Persons Notified of Discharge Plans: patient and mother, So. Patient/Family in Agreement with the Plan: yes Handoff Referral Completed: Yes Additional Information: Plan for patient to discharge to TCU at 4pm today pending staffing. RNCC available as needed. Update 1400: [facility] will [facility] to [facility] at 1600. nursing home administrator and bedside RN aware. Bedside RN toarrange transport at 1600. RNCC available as needed. Dr[facility] Sub[facility] at discharge. Tiffanie Machado RN, BSN Industrial Automation Specialist, Ortho Pager Jaime Rae MD - 07/22/2021 8:58 AM CDT [facility] Medicine Progress Note - Hospitalist Service, ONUR TEAM 17 Date of Admission: 07/06/2021 Assessment & Plan 40 year old female??with past medical history significant for opioid use disorder,??alcohol use disorder,??HCV, hypothyroidism, depression, anxiety, and tobacco abuse??admitted on 07/06/21 from [facility] for further care of R ankle osteomyelitis by Orthopedics, Plastics, and Infectious Disease.? Today's changes: 07/22/2021 Overall doing better. No new concern/changes by me Aw TCU. See discharge summary 07/21 07/19:??Per patient request: Increased Subutex dose to 8 mg 3 times daily, BUILDING SERVICES TECHNICIAN dose. ??Schedule Robaxin 750 3 times daily. [...] epic for recommendations.. ?>Pain control: Currently controlled. -Continue??BUILDING SERVICES TECHNICIAN??Suboxone ??8mg tid ??; scheduled APAP 975mg TID, [...] allergenic polyurethane foam dressings (Mepitac tape, Sorbiview, [id number]) over occlusive adhesive semipermeable gauze dressings; WOC [...] improving.?? # Alcohol use disorder.?? HCV quant 928441??at OSH. ??AST 117, ALT 44, and AP [...] with periods of confusion early in admission. ??Hargill to be??toxic vs metabolic??2/2 ?withdrawal, infection, sepsis. [...] care was discussed with the Bedside Nurse, Industrial Automation Specialist/Electrician'S Assistant and Patient. Jaime Rae MD Hospitalist Service, [facility] TEAM [address] [place] [address] Securely message with the [employer] Console (learn more here) Text page via [facility] Paging/Directory Please see signed in provider for [...] Agreement with the Plan: yes Additional Information: [facility] is unable to accept patient today due to staffing. Admissions requested that patient bebrought over there tomorrow at 1100. Notified charge nurse. Updated patient and she verbalized understanding and agreement to plan. MICHAEL Mehta RNCC RN Industrial Automation Specialist Office: [phone] Pager: [phone] Cali Zavaleta MD - 07/21/2021 12:17 PM [...] this note to the appropriate Epic pools: [facility] INFECTIOUS DISEASE ADULT [facility], [facility], [facility]/ID Clinic Information: [address] [facility], Clinic [address] [place] [address] Cali Bullock MD on 07/21/2021 at 12:19 PM Cali Bullock MD - 07/21/2021 12:03 PM CDT Images from the original note were not included. 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 Negativesince then. Confirmed with lab [...] and worse about 2 weeks before admissionto [facility]. Also had periodic fever for 1-2 weeks - MRI right ankle wo contrast 06/29/21 - extensive tibiotalar erosions with large joint effusion and synovitis . - 06/30/21 ([facility]) - Right lateral ankle deep abscess I&D, [...] subcutaneous tissue without exposed bone. - 07/02/21 ([facility]) - Right lateral ankle I&D, right lateral calcaneus hardware removal and ankle wound vac exchange. With repeat debridement the wound extended down to the bone and the hardware. All 5 screws were removed and plate was removed. The peroneal tendon and calcaneous were exposed, The defect now measured 7x 4 cm with a depth of 2 cm. - 07/04/21 ([facility]) - Right lateral ankle I&D and wound vac replacement. - 07/07/21 ([facility]) - Right ankle I&D and [...] VL since then), whot was admitted to [facility] from 06/28/21 - 07/06/21 with sepsis [...] The patient was then transferred to the [facility] ([facility]) on 07/06/21 for further management [...] oxacillin susceptible. Cali Bullock MD Infectious Diseases [phone] Interval events Patient overall feels okay. Tolerating [...] abuse. ?? The patient was admitted to [facility] from 06/28/04 - 07/06/21 with sepsis [...] [facility] [facility] and had a irrigation [...] was then transferred to the [facility] ([facility]) on 07/06/21 for further management [...] I&D and wound vac replacement. - 07/07/21 ([facility]-) - Right ankle I&D and wound [...] costs discussed: Not applicable PAS Confirmation Code: [id number] Patient/family educated on Medicare website which has current facility and service quality ratings: Yes, [facility] Education Provided on the Discharge Plan: yes Persons Notified of Discharge Plans: pt, ortho nursing home administrator Adam, Dr Rae Patient/Family in Agreement with the Plan: yes Handoff Referral Completed: Yes Additional Information: SW met with pt and reviewed discharge plan, including referral to Senior Linkage line for PAS/RR. Ptwas very groggy so may not recall conversation. SW updated nursing home administrator Adam and Dr. Rae with anticipated discharge to TCU today @ 1:30. YADIRA Diamond MSW [facility] Friday Electrician'S Assistant Text paging available through [employer] on Clever - search SOCIAL WORK SOCIAL MEDIA JOB TITLES PAGER [phone]. [phone] Friday ONLY! SOCIAL MEDIA JOB TITLES COVERAGE AFTER 1600 Alyce Israel MSW - [...] and a bed become available. ADDENDUM 10:23: Storage Garage Manager informed by Leslie Parikh rehabilitation tech that there may be a discharge from TCU this afternoon and could possibly accept pt for admissions at 1:30. She is requesting Rapid Covid Test. SW informed Ortho nursing home administrator [place], who will request rapid COVID Test. JACKIE completed PAS/RR on line: [id number]. Pt updated. YADIRA Diamond MSW [facility] Friday Electrician'S Assistant Text paging available through [employer] on [facility] [employer] - search SOCIAL WORK SOCIAL MEDIA JOB TITLES PAGER [phone]. [phone] Friday ONLY! SOCIAL MEDIA JOB TITLES COVERAGE AFTER 1600 Paulino Ybarra RN - [...] Rae MD - 07/20/2021 10:56 AM CDT [facility] Medicine Progress Note - Hospitalist Service, ON[facility] TEAM 17 Date of Admission: 07/06/2021 Assessment & Plan 40 year old female??with past medical history significant for opioid use disorder,??alcohol use disorder,??HCV, hypothyroidism, depression, anxiety, and tobacco abuse??admitted on 07/06/21 from [facility] for further care of R ankle osteomyelitis by Orthopedics, Plastics, and Infectious Disease.? Today's changes: 07/20/2021 Overall doing better. Rash, pruritus: improving. Pain controlled. No new concern/changes by me Aw tcu Ortho, ID, Dermatology, WOCN- following. 07/19: Per patient request: Increased Subutex dose to 8 mg 3 times daily, BUILDING SERVICES TECHNICIAN dose. Schedule Robaxin 750 3 times daily. [...] vac. WOCN consult. ?? - Pain control: -Continue??BUILDING SERVICES TECHNICIAN??Suboxone 8mg tid ??; scheduled APAP 975mg TID, [...] improving.?? # Alcohol use disorder.?? HCV quant 935856??at OSH. ??AST 117, ALT 44, and AP [...] with periods of confusion early in admission. ??Hargill to be??toxic vs metabolic??2/2 ?withdrawal, infection, sepsis. [...] care was discussed with the Bedside Nurse, Industrial Automation Specialist/Electrician'S Assistant and Patient. Jaime Rae MD Hospitalist Service, [facility] TEAM [address] [place] [address] Securely message with the Smart[employer] Console (learn more here) Text page via [facility] Paging/Directory Please see signed in provider for [...] original note were not included. [facility] Nurse Inpatient Assessment Today's Assessment: Right [...] with vac drape prior to applying sponge steward/stewardess night to assess integrity of dressing and ensure [...] plan of care with: Patient and Nurse [facility] Nurse follow-up plan:Friday/ Notify WO if wound(s) [...] Emily Macias RN BSN CWOCN Dept. Pager: [phone] Dept. Office Number: [phone] Jaime Rae MD - 07/19/2021 12:42 PM CDT [facility] Medicine Progress Note - Hospitalist Service, ONUR TEAM 17 Date of Admission: 07/06/2021 Assessment & Plan 40 year old female??with past medical history significant for opioid use disorder,??alcohol use disorder,??HCV, hypothyroidism, depression, anxiety, and tobacco abuse??admitted on 07/06/21 from [facility] for further care of R ankle osteomyelitis by Orthopedics, Plastics, and Infectious Disease.? Today's changes: 07/19/2021 Overall doing better. Rash, pruritus: improving. Per patient request: Increased Subutex dose to 8 mg 3 times daily, BUILDING SERVICES TECHNICIAN dose. Schedule Robaxin 750 3 times daily. [...] vac. WOCN consult. ?? - Pain control: -Continue??BUILDING SERVICES TECHNICIAN??Suboxone 8mg tid ??; scheduled APAP 975mg TID, [...] improving.?? # Alcohol use disorder.?? HCV quant 888178??at OSH. ??AST 117, ALT 44, and AP [...] with periods of confusion early in admission. ??Hargill to be??toxic vs metabolic??2/2 ?withdrawal, infection, sepsis. [...] care was discussed with the Bedside Nurse, Industrial Automation Specialist/Electrician'S Assistant and Patient. Jaime Rae MD Hospitalist Service, [facility] TEAM [address] [place] [address] Securely message with the [employer] (learn more here) Text page via [employer] Paging/Directory Please see signed in provider for [...] continue to follow. Tiffanie Machado RN, BSN Industrial Automation Specialist, 5 Ortho Pager Jah Thompson MD [...] Rae MD - 07/18/2021 1:47 PM CDT [facility] Medicine Progress Note - Hospitalist Service, GOLD TEAM 17 Date of Admission: 07/06/2021 Assessment & Plan 40 year old female??with past medical history significant for opioid use disorder,??alcohol use disorder,??HCV, hypothyroidism, depression, anxiety, and tobacco abuse??admitted on 07/06/21 from [facility] for further care of R ankle osteomyelitis [...] vac. WOCN consult. ?? - Pain control: continue??BUILDING SERVICES TECHNICIAN??Suboxone 4mg Q4H (was taking this way at [...] improving.?? # Alcohol use disorder.?? HCV quant 598302??at OSH. ??AST 117, ALT 44, and AP [...] with periods of confusion early in admission. ??Hargill to be??toxic vs metabolic??2/ ?withdrawal, infection, sepsis. [...] managed on??buprenorphine??since 2009. ??On buprenorphine 4mg QID BUILDING SERVICES TECHNICIAN, increased to Q4H at OSH due to [...] care was discussed with the Bedside Nurse, Industrial Automation Specialist/Electrician'S Assistant and Patient. Jaime Rae MD Hospitalist Service, [facility] TEAM [address] [place] [address] Securely message with the [employer] Console (learn more here) Text page via [employer] Paging/Directory Please see signed in provider for [...] original note were not included. [facility] Nurse Inpatient Assessment Today's Assessment: Right [...] with vac drape prior to applying sponge steward/stewardess night to assess integrity of dressing and ensure [...] 19 Lisa Chandler RN, CWOCN Dept. Pager: [phone] Dept. Office Number: [phone] Cali Bullock MD - 07/18/2021 12:44 PM CDT Images from the original note were not included. 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 negativesince then. Confirmed with lab [...] and worse about 2 weeks before admissionto [facility]. Also had periodic fever for 1-2 weeks - MRI right ankle wo contrast 06/29/21 - extensive tibiotalar erosions with large joint effusion and synovitis . - 06/30/21 ([facility]) - Right lateral ankle deep abscess I&D, [...] subcutaneous tissue without exposed bone. - 07/02/21 ([facility]) - Right lateral ankle I&D, right lateral calcaneus hardware removal and ankle wound vac exchange. With repeat debridement the wound extended down to the bone and the hardware. All 5 screws were removed and plate was removed. The peroneal tendon and calcaneous were exposed, The defect now measured 7x 4 cm with a depth of 2 cm. - 07/04/21 ([facility]) - Right lateral ankle I&D and wound vac replacement. - 07/07/21 ([facility]) - Right ankle I&D and [...] VL since then), whot was admitted to [facility] from 06/28/21 - 07/06/21 with sepsis [...] The patient was then transferred to the [facility] ([facility]) on 07/06/21 for further management [...] clinical course Cali Bullock MD Infectious Diseases [phone] Interval events Patient overall feels okay. Wound [...] abuse. ?? The patient was admitted to [facility] from 06/28/04 - 07/06/21 with sepsis [...] the OR on 06/30/[address] [facility] and had a irrigation and [...] was then transferred to the [facility]) on 07/06/21 for further management due to [...] I&D and wound vac replacement. - 07/07/21 ([facility] - Right ankle I&D and wound [...] Camara. Future Appointments Date Time Provider Department [place] 07/07/2021 7:00 PM UR OT WAITLIST [facility] [place] 07/08/2021 8:00 AM Carmencita Li Pt, PT URPT [place] ?? Carlos A Thompson MD Orthopaedic Surgery, [...] place for 6 weeks IV antibiotics. This database report writer noticed a redness around the PICC site and the dressing dislodged by patient. This database report writer notified the bedside RN. Visitor Services Coordinator made recommendations. See note. [facility] RN also assessed and redressed PICC site. Spoke with patient's mother, So, who agreed with the plan of patient going to TCU. So is caring for patient's three children while she is in the hospital. This database report writer will continue to follow up on TCU referrals. Tiffanie Machado RN, BSN Industrial Automation Specialist, 5 Ortho Pager Alma Oswald MD - 07/17/2021 2:45 PM CDT Images from the original note were not included. [facility] Inpatient Teledermatology Store and Forward Progress Note [...] allergenic polyurethane foam dressings (Mepitac tape, Sorbiview, [id number]) over occlusive adhesive semipermeable gauze dressings; WOC [...] Oncol Nurs. 2012 May;16(2):E48-55. doi: 10.1188/12.CJON.E48-E55. PMID: [id number]. Thank you for this teledermatology consultation. Please do not hesitate to contact with any additional questions or concerns. Attending physician: Dr. Kathryn Oswald MD Dermatology Resident [facility] Relevant History: Based on chart review and direct communication with consulting team 40 year old female??with past medical history significant for opioid use disorder,??alcohol use disorder,??HCV, hypothyroidism, depression, anxiety, and tobacco abuse??admitted on 07/06/21 from [facility] for further care of R ankle osteomyelitis [...] did not evaluate the patient in-person. Brice Peratla MD Pronouns: he/him/his Metal Window Frame Maker Department of Dermatology [facility]: , [facility]: Lona Zhao RN - 07/17/2021 1:47 PM CDT Images from the original note were not included. Bedside RN paged VAS for assessing patient's left arm PICC due to skin issues. This database report writer discovered that the skin was irritated [...] Rae MD - 07/17/2021 1:10 PM CDT [facility] Medicine Progress Note - Hospitalist Service, ONUR TEAM 17 Date of Admission: 07/06/2021 Assessment & Plan 40 year old female??with past medical history significant for opioid use disorder,??alcohol use disorder,??HCV, hypothyroidism, depression, anxiety, and tobacco abuse??admitted on 07/06/21 from [facility] for further care of R ankle osteomyelitis [...] vac. WOCN consult. ?? - Pain control: continue??BUILDING SERVICES TECHNICIAN??Suboxone 4mg Q4H (was taking this way at [...] improving.?? # Alcohol use disorder.?? HCV quant 610378??at OSH. ??AST 117, ALT 44, and AP [...] with periods of confusion early in admission. ??Hargill to be??toxic vs metabolic??2/2 ?withdrawal, infection, sepsis. [...] managed on??buprenorphine??since 2009. ??On buprenorphine 4mg QID BUILDING SERVICES TECHNICIAN,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 07/19/2021 7:27 AM CDT Status Note [id number] Patient A&Ox4, able to make needs known, [...] Dosing Service - Iker Caldwell [facility] - 07/15/2021 7:40 AM CDT Pharmacy [...] passing gas. Activity: Independent up to [facility] pivoting. Up for meals? [...] Note to Pharmacy: For [facility], [facility] and [facility]: For Zosyn-naive patients, use the Zosyn [...] verbal consent to Sintia Swain RN for [facility] staff to speak with mother So Parker [...] TBD Additional Info: Plan of Care - iSntia Arias RN - 07/11/2021 12:24 PM CDT [...] Dosing Service - Lurdes Sierra [facility] - 07/11/2021 10:11 AM CDT Pharmacy [...] but the predicted AUC was 459 @64%. Hargill that since patient is younger with good [...] Last BM: 07/06. Activity: Up to [facility] with assist of one. 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 She underwent 3 I&D's at [facility] prior to her transfer. Patient was transferred [...] 07/07/2021 7:00 PM UR OT WAITLIST [facility] [place] 07/08/2021 8:00 AM Carmencita Li Pt, PT [facility]PT [place] Nathaniel Tinoco MD Orthopaedic Surgery, PGY-4 Plan [...] monitor. Pharmacy-Admission Medication History - Suze Morales, [facility] - 07/06/2021 7:22 PM CDT Admission Medication History Completed by Pharmacy See [facility] Admission Navigator for allergy information, preferred outpatient pharmacy, prior to admission medications and immunization status. Medication History Sources: ??? Pharmacy fill history via [employer] ??? Current medication list from [facility] (pt admitted 06/28-07/06) ??? CITY PLANNER Changes made to BUILDING SERVICES TECHNICIAN medication list (reason): ??? Added: spironolactone, famotidine, lactulose, magnesium oxide, potassium chloride, senna (per [place] records, these were started while pt in the hospital, doesn't appear she was on these police captain) ??? Deleted: coenzyme-Q, ibuprofen, multivitamin, omeprazole, ondansetron, Miralax, thiamine, vitamin B complex (old Rx, no fill history) ??? Changed: o Gabapentin 100-200 mg bid + 300 mg hs --> 300 mg hs (per [place] records, has not filled gabapentin police captain since 08/16/20) o Venlafaxine XR 150 mg daily --> 300 mg daily (per fill history, [place] records) Additional Information: ??? Last prescribed dose of buprenorphine was 8 mg SL tid, however per addiction medicine visit notes pt was taking medication differently to make prescription last and using family member's supply at times. At [facility] she was receiving 4 mg SL every 4 hours. Per [place] CITY PLANNER: Buprenorphine 8 mg SL tablet filled 05/04/21, [...] Mckenzie naloxone (NARCAN) 4 MG/0.1ML nasal spray Dover 1 spray (4 mg) into one nostril [...] LDA: L side chest PICC. Placed at [facility]. Plan: Continue with care Additional Info: Plan [...] Visit Wound Care Luis Camara DPM [address] [place] [address] (Wo rk) 01/21/2022 PRE VISIT Gastroenterology Landon Warren, *-*HEATHER Barriga RECORDS*-* MD Luis Fernando [address] [place] [address] (Wo rk) 01/21/2022 Office Visit Gastroenterology Juanis Mckenzie [address] [place] [address] Luis Fernando Miles MD [address] [place] [address] documented as of this encounter Procedures [...] (ABNORMAL) CRP inflammation (07/23/2021 7:42 AM CDT) [facility] Method Time Signature CRP Inflammation 8.2 (H) [...] City/State/ZIP Code Phon [place] [address] Care Lab [facility], Room M309 (ABNORMAL) CBC with platelets and differential (07/21/2021 3:12 PM CDT) [employer] Method Time Signature WBC Count 4.4 4.0 [...] City/State/ZIP Code Phon e Number UR LABORATORY [facility] [place] [address] Care Lab [address] [facility], Room [address]309 Asymptomatic COVID-19 Virus (Coronavirus) [...] ts COVID-19. ??[facility] are certified under the Clinical Laborat ory Improvement Amendments of 1988 (CLIA-88) as qualified to perform moderate and/or high complexity laboratory testing. Jaime Rae MD LAB - MICRO GENERAL ORDERABL ES Performing Organization Address City/State/[facility] Phon [place] [address] Care Lab [address] [facility], Room M309 (ABNORMAL) CRP inflammation (07/19/2021 8:19 AM CDT) [facility] Method Time Signature CRP Inflammation 15.0 (H) 0.0 - 8.0 07/19/2021 UR LABORATOR Y mg/L 9:11 AM CDT Specimen Anatomical Collection Method / Collection Time Recei isak Time (Source) Location / Volume Laterality Blood STRUCTURE OF RIGHT Venipuncture / 07/19/2021 8:19 06/0 03/2021 8:28 HAND / Unknown Unknown AM CDT AM CDT Jaime Rae MD LAB - BLOOD ORDERABLES Performing Organization Address [facility] Phon [place] [address] Care Lab [address] [facility], Room M309 (ABNORMAL) CBC with platelets (07/19/2021 8:19 AM CDT) [facility] Method Time Signature WBC Count 4.9 4.0 [...] City/State/ZIP Code Ph[place] [address] Care Lab [address] [place] [address], Room M309 Extra Purple Top Tube (07/18/2021 [...] City/State/ZIP Code Ph[place] [address] Care Lab [address] [place] [address], Room M309 (ABNORMAL) CRP inflammation (07/18/2021 7:37 [...] City/State/ZIP Code Ph[place] [address] Care Lab [address] [place] [address], Room M309 XR Chest 1 View (07/17/2021 [...] 11:14 AM CDT) [facility] Signature SARS CoV2 PCR Negative Negative 07/17/2021 UR LABORATORY 12:12 PM CDT Comment: NEGATIVE: SARS-CoV-2 (COVID-19) RNA not detected, presumed negative. Specimen Anatomical Location / Collection Method Collection Jeff e Received Time (Source) Laterality / Volume Swab NASOPHARYNGEAL Non-blood 07/17/2021 11:14 2 STRUCTURE / Unknown Collection / AM CDT [...] ts COVID-19. ??[facility] are certified under the Clinical Laborat ory Improvement Amendments of 1988 (CLIA-88) as qualified to perform moderate and/or high complexity laboratory testing. Jaime Rae MD LAB - MICRO GENERAL ORDERABL ES Performing Organization Address City/State/ZIP Code Ph[place] [phone] Care Lab [address] [facility], Room M309 (ABNORMAL) CBC with platelets and differential (07/17/2021 7:36 AM CDT) [facility] gist Method Time Signature WBC Count 5.8 [...] City/State/ZIP Code Phon e Number UR LABORATORY [facility] [place] [address] Care Lab [address] [facility] Building, Room M309 (ABNORMAL) Comprehensive metabolic panel (07/17/2021 7:36 AM CDT) [facility] Method Time Signature Sodium 139 [...] and gender (Paul et al., NE, DOI: 10.1056/EBLKii4891953) Specimen Anatomical Collection Method / Collection Time Recei isak Time (Source) Location / Volume Laterality Blood STRUCTURE OF RIGHT Venipuncture / 07/17/2021 7:36 05/3 02/2021 8:08 HAND / Unknown Unknown AM CDT AM CDT Jensen Ulloa MD LAB - BLOOD ORDERABLES Performing Organization Address City/State/ZIP Code Phon [place] [address] Care Lab [address] [place] [address], Room M309 (ABNORMAL) CRP inflammation (07/16/2021 9:08 [...] City/State/ZIP Code [place] [address] Care [address] [place] [address], Room M309 Creatinine (07/16/2021 8:23 AM CDT) P athologist Signature Creatinine 0.66 0.52 - 1.04 07/16/2021 UR LABORATORY mg/dL 9:01 AM CDT GFR Estimate >90 >60 07/16/2021 UR LABORATORY mL/min/1.73 9:01 AM CDT m2 Comment: Effective February 06, 2021 eGF Rcr in adults is calculated using the 2020 CKD-EPI creatinine equation which includ es age and gender (Paul et al., NEJM, DOI: 10.1056/GDWCrd7932343) Specimen Anatomical Collection Method / Collection Time Recei isak Time (Source) Location / Volume Laterality Blood STRUCTURE OF RIGHT Venipuncture / 07/16/2021 8:23 05/3 8:31 HAND / Unknown Unknown AM CDT AM CDT Jaime Rae MD LAB - BLOOD ORDERABLES Performing Organization Address City/[facility] Phon [place] [address] Care Lab [address] [place] [address], Room M309 Extra Purple Top Tube (07/15/2021 [...] BLOOD ORDERABLES Performing Organization Address City/[facility]/ZIP Code Ph[place] [address] Care Lab [address] [place] [address], Room M309 Creatinine (07/15/2021 6:09 AM CDT) P athologist Signature Creatinine 0.64 0.52 - 1.04 07/15/2021 UR LABORATORY mg/dL 7:06 AM CDT GFR Estimate >90 >60 07/15/2021 UR LABORATORY mL/min/1.73 7:06 AM CDT m2 Comment: Effective February 06, 2021 eGF Rcr in adults is calculated using the 2020 CKD-EPI creatinine equation which includ es age and gender (Paul et al., NEJ, DOI: 10.1056/GBWScl5182055) Specimen Anatomical Collection Method / Collection Time Recei isak Time (Source) Location / Volume Laterality Blood STRUCTURE OF LEFT Venipuncture / 07/15/2021 6:09 07/15 6:14 HAND / Unknown Unknown AM CDT AM CDT Jaime Rae MD LAB - BLOOD ORDERABLES Performing Organization Address City/State/ZIP Code Ph[place] [address] Care Lab [address] [facility], Room M309 Vancomycin level (07/15/2021 6:09 AM CDT) P athologist Signature Vancomycin 20.6 mg/L 07/15/2021 7:07 UR LABORATORY AM CDT Specimen Anatomical Collection Method / Collection Time Recei isak Time (Source) Location / Volume Laterality Blood STRUCTURE OF LEFT Venipuncture / 07/15/2021 6:09 07/15 6:14 HAND / Unknown Unknown AM CDT AM CDT Jaime Rae MD LAB - BLOOD ORDERABLES Performing Organization Address [facility] Phon [place] [address] Care Lab [address] [place] [address], Room M309 Creatinine (07/14/2021 5:30 AM CDT) P athologist Signature Creatinine 0.62 0.52 - 1.04 07/14/2021 UR LABORATORY mg/dL 6:20 AM CDT GFR Estimate >90 >60 07/14/2021 UR LABORATORY mL/min/1.73 6:20 AM CDT m2 Comment: Effective February 06, 2021 eGF Rcr in adults is calculated using the 2020 CKD-EPI creatinine equation which includ es age and gender (Paul et al., NEJM, DOI: 10.1056/SFOJwc4516957) Specimen Anatomical Collection Method / Collection Time Recei isak Time (Source) Location / Volume Laterality Blood STRUCTURE OF RIGHT Venipuncture / 07/14/2021 5:30 05/2 09/2021 5:52 UPPER LIMB / Unknown AM CDT AM CDT Unknown Jaime Rae MD LAB - BLOOD ORDERABLES Performing Organization Address City/[facility]/ZIP Code Ph[place] [address] Care Lab [address] [facility], Room M309 (ABNORMAL) CBC with platelets (07/14/2021 5:30 AM CDT) [facility] Method Time Signature WBC Count 4.9 4.0 [...] City/State/ZIP Code Phon e Number UR LABORATORY [facility] [place] [address] Care Lab [address] [facility], Room M309 (ABNORMAL) CRP inflammation (07/14/2021 5:30 AM CDT) [facility] Method Time Signature CRP Inflammation 40.0 (H) [...] City/State/ZIP Code Phon e Number UR LABORATORY [facility] [place] [address] Care Lab [address] [facility], Room M309 XR Chest 1 View [...] platelets and differential (07/13/2021 5:40 AM CDT) [facility] Method Time Signature WBC Count 4.9 4.0 [...] City/State/ZIP Code [place] [address] Care Lab [address] [facility], Room M309 (ABNORMAL) Comprehensive metabolic panel (07/13/2021 5:40 AM CDT) [facility] gist Method Time Signature Sodium 139 133 [...] and gender (Paul et al., NE, DOI: 10.1056/[id number]) Specimen Anatomical Collection Method / Collection Time Recei isak Time (Source) Location / Volume Laterality Blood STRUCTURE OF RIGHT Venipuncture / 07/13/2021 5:40 05/08/2021 5:55 HAND / Unknown Unknown AM CDT AM CDT Jensen Ulloa MD LAB - BLOOD ORDERABLES Performing Organization Address City/State/ZIP Code Phon [place] [address] [place] [address], [facility] M309 Vancomycin level (07/13/2021 5:40 AM CDT) P athologist Signature Vancomycin 18.8 mg/L 07/13/2021 6:44 UR LABORATORY AM CDT Specimen Anatomical Collection Method / Collection Time Recei isak Time (Source) Location / Volume Laterality Blood STRUCTURE OF RIGHT Venipuncture / 07/13/2021 5:40 /08/2021 5:55 HAND / Unknown Unknown AM CDT AM CDT Jaime Rae MD LAB - BLOOD ORDERABLES Performing Organization Address City/State/ZIP Code Phon [place] [address] [address] [place] [address], Room M309 Blood Culture Line, venous (07/12/2021 [...] MICRO GENERAL ORDERABL ES Performing Organization Address City/[facility] Phon e Number UU IDD LABORATORY [facility] [place] [address] Diag. Lab [address] [facility], Room D297 Blood Culture Arm, Right (07/12/2021 8:57 AM CDT) athologist Signature Culture No Growth 07/17/2021 UU IDD 11:03 AM CDT LABORATORY Specimen Anatomical Collection Method / Collection Time Recei isak Time (Source) Location / Volume Laterality Blood STRUCTURE OF RIGHT Venipuncture / 07/12/2021 8:57 05/2 07/2021 9:13 UPPER LIMB / Unknown AM CDT AM CDT Unknown Jensen Ulloa MD LAB - MICRO GENERAL ORDERABL ES Performing Organization Address [facility] Phon e Number UU IDD LABORATORY [facility] [place] [address] Diag. Lab [address] [facility], Room D297 (ABNORMAL) CRP inflammation (07/12/2021 6:57 AM CDT) [facility] Method Time Signature CRP Inflammation 57.0 (H) [...] City/State/ZIP Code [place] [address] [place] [address], Room M309 (ABNORMAL) CBC with platelets (07/12/2021 6:57 AM CDT) [facility] Method Time Signature WBC Count 6.6 [...] City/State/ZIP Code Ph[place] [address] [place] [address], Room M309 Creatinine (07/12/2021 6:57 AM CDT) P athologist Signature Creatinine 0.57 0.52 - 1.04 07/12/2021 UR LABORATORY mg/dL 7:35 AM CDT GFR Estimate >90 >60 07/12/2021 UR LABORATORY mL/min/1.73 7:35 AM CDT m2 Comment: Effective February 06, 2021 eGF Rcr in adults is calculated using the 2020 CKD-EPI creatinine equation which includ es age and gender (Paul et al., NE, DOI: 10.1056/[id number]) Specimen Anatomical Collection Method / Collection Time Recei isak Time (Source) Location / Volume Laterality Blood STRUCTURE OF RIGHT Venipuncture / 07/12/2021 6:57 05/2 07/2021 7:04 UPPER LIMB / Unknown AM CDT AM CDT Unknown Jaime Rae MD LAB - BLOOD ORDERABLES Performing Organization Address City/State/ZIP Code Phon e Number UR LABORATORY [facility] [place] [address] Care Lab [address] [facility], Room M309 Fungal or Yeast Culture [...] Code Phon e Number UU IDD LABORATORY [facility] [place] [address] Diag. Lab [address] [facility], Room D297 Wound Aerobic Bacterial Culture [...] Code Phon e Number UU IDD LABORATORY [facility] [place] [address] Diag. Lab [address] [facility], Room D297 (ABNORMAL) Anaerobic Bacterial Culture Routine (07/11/2021 6:18 PM CDT) [facility] gist Method Time Signature Culture No anaerobic [...] MICRO GENERAL ORDER JEFFERY Performing Organization Address City/[facility]/ZIP Code Phon e Number UU IDD LABORATORY [facility] [place] [address] Diag. Lab [address] [facility], Room [address]297 Extra Purple Top Tube [...] City/State/ZIP Code Phon [place] [address] Care Lab [facility], Room M309 Creatinine (07/11/2021 9:09 AM CDT) P athologist Signature Creatinine 0.58 0.52 - 1.04 07/11/2021 UR LABORATORY mg/dL 9:35 AM CDT GFR Estimate >90 >60 07/11/2021 UR LABORATORY mL/min/1.73 9:35 AM CDT m2 Comment: Effective February 06, 2021 eGF Rcr in adults is calculated using the 2020 CKD-EPI creatinine equation which includ es age and gender (Paul et al., NEJM, DOI: 10.1056/WBHXri2063317) Specimen Anatomical Collection Method / Collection Time Recei isak Time (Source) Location / Volume Laterality Blood STRUCTURE OF RIGHT Venipuncture / 07/11/2021 9:09 05/2 06/2021 9:16 UPPER LIMB / Unknown AM CDT AM CDT Unknown Jaime Rae MD LAB - BLOOD ORDERABLES Performing Organization Address City/State/ZIP Code Phon [place] [address] Care Lab [facility], Room M309 (ABNORMAL) CBC with platelets [...] Number UR LABORATORY [facility] [place] [address] Care Lab [address] [facility], Room M309 (ABNORMAL) CRP inflammation (07/10/2021 7:26 AM CDT) [facility] gist Method Time Signature CRP Inflammation 59.0 [...] City/State/ZIP Code Phon [place] [address] Care Lab [address] [place] [address], Room M309 (ABNORMAL) CRP inflammation (07/10/2021 5:25 AM CDT) [facility] Method Time Signature CRP Inflammation 60.0 (H) [...] City/State/ZIP Code Phon [place] [address] Care Lab [address] [place] [address], Room M309 (ABNORMAL) CBC with platelets (07/10/2021 5:25 AM CDT) [facility] Method Time Signature WBC Count 8.2 4.0 [...] City/State/ZIP Code Ph[place] [address] Care Lab [address] [facility], Room M309 (ABNORMAL) UA with Microscopic reflex to Culture (07/09/2021 5:33 PM CDT) [facility] Method Time Signature Color Urine Yellow Colorless, 07/09/2021 UR LABORATORY Straw, 7:00 PM CDT Light Yellow, Yellow Appearance Urine Clear Clear 07/09/2021 UR LABORATOR Y 7:00 PM CDT Glucose Urine Negative Negative 07/09/2021 UR LABORATORY mg/dL 7:00 PM CDT Bilirubin Urine Negative Negative 07/09/2021 UR LABORATORY 7:00 PM CDT Ketones Urine Negative Negative 07/09/2021 UR LABORATORY mg/dL 7:00 PM CDT Specific Center Line 1.018 1.003 - 07/09/2021 UR LABORATOR Y [...] City/State/ZIP Code Phon [place] [address] Care Lab [address] [facility], Room M309 Blood Culture Arm, Right [...] MICRO GENERAL ORDERABL ES Performing Organization Address City/[facility]/ZIP Code Phon e Number UU IDD LABORATORY [facility] [place] [address] Diag. Lab [address] [facility], Room D297 Blood Culture Arm, Left [...] MICRO GENERAL ORDERABL ES Performing Organization Address [facility] Phon e Number UU IDD LABORATORY [facility] [place] [address] Diag. Lab [address] [facility], Room D297 (ABNORMAL) CRP inflammation (07/09/2021 12:22 PM CDT) [facility] Method Time Signature CRP Inflammation 43.0 (H) [...] BLOOD ORDERABLES Performing Organization Address City/[facility]/ZIP Code Phon e Number UR LABORATORY [facility] [place] [address] Care Lab [address] [facility], Room M309 ALT (07/09/2021 12:22 PM [...] City/State/ZIP Code Phon e Number UR LABORATORY [facility] [place] [address] Care Lab [address] [facility], Room M309 (ABNORMAL) Basic metabolic panel [...] and gender (Paul et al., NEJM, DOI: [id number]) Specimen Anatomical Collection Method Collection Time Receive d Time (Source) Location / / Volume Laterality Blood STRUCTURE OF LEFT VAD(CVC, PICC) / 07/09/2021 12:22 UPPER LIMB / Unknown PM CDT 12:30 PM CDT Unknown Jaime Rae MD LAB - BLOOD ORDERABLES Performing Organization Address City/State/ZIP Code Ph[place] [phone] Care Lab [address] [place] [address], Room M309 (ABNORMAL) CBC with platelets (07/09/2021 [...] City/State/ZIP Code Phon [place] [phone] Care Lab [address] [place] [address], Room M309 ECHO COMPLETE (07/08/2021 1:04 PM CDT) P athologist Signature LVEF 55-60% CARDIOLOGY RESULTS Anatomical Region Laterality Modality Echocardiography Specimen (Source) Anatomical Collection Method Collection Time Re ceived Time Location / / Volume Laterality 07/08/2021 12:07 PM CDT Narrative 07/08/2021 2:15 PM CDT [id number]^BUTCH^JAIME [facility] Echocardiography Laboratory [address] [place] [address] Name: DEANN KING : 1980 Study Date: 07/08/2021 12:07 PM Age: 40 yrs Gender: Female Patient Location: [facility] Reason For Study: Endocarditis Ordering Physician: JAIME [...] Procedure Note Matheus Jo MD - 07/08/2021 [id number]^BUTCH^JAIME [facility] Echocardiography Laboratory [address] [place] [address] Name: DEANN KING : 1980 Study Date: 07/08/2021 12:07 PM Age: 40 yrs Gender: Female Patient Location: [facility] Reason For Study: Endocarditis Ordering Physician: JAIME [...] CBC with platelets (07/08/2021 7:14 AM CDT) Patholo gist Method Time Signature WBC Count 7.0 [...] BLOOD ORDERABLES Performing Organization Address City/[facility]/ZIP Code Phon [place] [address] Care Lab [address] [place] [address], Room M309 (ABNORMAL) Erythrocyte sedimentation rate auto [...] City/State/ZIP Code Phon [place] [address] Care Lab [address] [place] [address], Room M309 (ABNORMAL) CRP inflammation (07/08/2021 7:14 AM CDT) [...] City/State/ZIP Code Ph[place] [address] Care Lab [address] [place] [address], Room M309 US Abdomen Complete (07/07/2021 3:33 [...] findings. KIMBERLY JACOBSON MD Jaime Rae MD IMG US ORDERABLES Blood Culture Line, venous (07/07/2021 [...] Code Phon e Number UU IDD LABORATORY [facility] [place] [address] Diag. Lab [address] [facility], Room D297 Blood Culture Line, venous [...] Code Phon e Number UU IDD LABORATORY [facility] [place] [place] [address] Diag. Lab [address] [facility], Room D297 (ABNORMAL) Phosphorus (07/07/2021 12:35 [...] City/State/ZIP Code Phon e Number UR LABORATORY [facility] [place] [address] Care Lab [address] [facility], Room M309 Magnesium (07/07/2021 12:35 PM [...] City/State/ZIP Code Phon [place] [phone] Care Lab [address] [place] [address], Room M309 (ABNORMAL) CBC with platelets (07/07/2021 12:35 PM CDT) [facility] gist Method Time Signature WBC Count 8.6 4.0 [...] City/State/ZIP Code Phon [place] [phone] Care Lab [address] [facility], Room M309 (ABNORMAL) Comprehensive metabolic panel (07/07/2021 12:35 PM CDT) [facility] Method Time Signature Sodium 137 133 - [...] and gender (Paul et al., NEJM, DOI: [id number]) Specimen Anatomical Collection Method Collection Time Receive d Time (Source) Location / / Volume Laterality Blood VENOUS LINE / VAD(CVC, PICC) / 07/07/2021 12:35 2021 1:01 Unknown Unknown PM CDT PM CDT Nathaniel Tinoco MD LAB - BLOOD ORDERABLES Performing Organization Address City/State/[facility] Code Phon e Number UR LABORATORY [facility] [place] [address] Care Lab [address] [facility], Room M309 (ABNORMAL) Tissue Aerobic Bacterial Culture Routine (07/07/2021 8:43 AM CDT) [facility] Method Time Signature Culture 1+ Staphylococcus GINETTE [...] Susceptibility testing requested by Dr. Fraga Pager [phone]. This specimen was received on a swab. [...] MICRO GENERAL ORDER JEFFERY Performing Organization Address City/[facility] Code Phon e Number UU IDD LABORATORY [facility] [place] [address] Diag. Lab [address] [facility], Room D297 Anaerobic Bacterial Culture Routine (07/07/2021 8:43 AM CDT) Patholo gist Method Time Signature [...] MICRO GENERAL ORDER JEFFERY Performing Organization Address City/[facility] Phon e Number UU IDD LABORATORY [facility] [place] [address] Diag. Lab [address] [facility], Room D297 Tissue Aerobic Bacterial Culture Routine (07/07/2021 8:42 AM CDT) P athologist Signature Culture 1+ Normal GINETTE 07/09/2021 UU IDD eveilna 10:15 AM CDT LABORATORY Specimen Anatomical Collection [...] MICRO GENERAL ORDER JEFFERY Performing Organization Address City/[facility]/ZIP Code Phon e Number UU IDD LABORATORY [facility] [place] [address] Diag. Lab [address] [facility], Room D297 Anaerobic Bacterial Culture Routine (07/07/2021 8:42 AM CDT) [facility] Method Time Signature Culture No anaerobic GINETTE [...] MICRO GENERAL ORDER JEFFERY Performing Organization Address City/[facility] Phon e Number UU IDD LABORATORY [facility] [place] [address] Diag. Lab [address] [facility], Room D297 Wound Aerobic Bacterial Culture Routine (07/07/2021 8:41 AM CDT) athologist Signature Culture 1+ Normal [...] Code Phon e Number UU IDD LABORATORY [facility] [place] [place] [address] Diag. Lab [address] [facility], Room D297 Anaerobic Bacterial Culture Routine (07/07/2021 8:41 AM CDT) [facility] Method Time Signature Culture No anaerobic GINETTE [...] Code Phon e Number UU IDD LABORATORY [facility] [place] [place] [address] Diag. Lab [address] [facility], Room D297 Asymptomatic COVID-19 Virus (Coronavirus) [...] exposure or clinical presentation sugges ts COVID-19. ??[facility] are certified under the Clinical Laborat ory Improvement Amendments of 1988 (CLIA-88) as qualified to perform moderate and/or high complexity laboratory testing. Ernesto Martínez MD LAB - MICRO GENERAL ORDERABL ES Performing Organization Address City/State/ZIP Code Phon e Number UR LABORATORY [facility] [place] [address] Care Lab [address] [facility], Room M309 Blood Culture Arm, Left [...] Code Phon e Number UU IDD LABORATORY [facility] [place] [address] Diag. Lab [address] [facility], Room D297 (ABNORMAL) Iron and iron [...] City/State/ZIP Code Phon e Number UR LABORATORY [facility] [place] [address] Care Lab [address] [facility], Room M309 (ABNORMAL) Hepatitis C RNA, Quantitative by PCR (07/06/2021 3:34 PM CDT) [facility] Method Time Signature Hepatitis C RNA 130,453 [...] Code Phon e Number UU IDD LABORATORY [facility] [place] [place] [phone] Diag. Lab [address] [facility], Room D297 Adult Type and Screen (07/06/2021 3:34 PM CDT) [facility] Method Time Signature ABO/RH(D) B POS 07/06/2021 UR BLOOD 2:15 PM CDT BANK Antibody Negative Negative 07/06/2021 UR BLOOD Screen 2:15 PM CDT BANK SPECIMEN [id number] 07/06/2021 UR BLOOD EXPIRATION 2:15 PM CDT BANK DATE Specimen Anatomical Collection Method / Collection Time Recei isak Time (Source) Location / Volume Laterality Blood STRUCTURE OF RIGHT Venipuncture / 07/06/2021 3:34 05/2 4:06 UPPER LIMB / Unknown PM CDT PM CDT Unknown Jah Thompson MD LAB - BLOOD BANK TEST ORDER Performing Organization Address City/State/ZIP Code Phon e Number UR BLOOD BANK [facility] [place] [phone] Components Lab [address] [facility], Room M301 (ABNORMAL) Hepatic panel (07/06/2021 [...] City/State/ZIP Code Phon e Number UR LABORATORY [facility] [place] [address] Care Lab [address] [facility], Room M309 Blood Culture Arm, Right [...] Code Phon e Number UU IDD LABORATORY [facility] [place] [address] Diag. Lab [address] [facility], Room D297 Partial thromboplastin time (07/06/2021 [...] BLOOD ORDERABLES Performing Organization Address City/[facility]/ZIP Code Phon [place] [address] Care Lab [address] [facility], Room M309 (ABNORMAL) INR (07/06/2021 3:34 PM CDT) P athologist Signature INR 1.39 (H) 0.85 - 1.15 07/06/2021 UR LABORATORY 4:23 PM CDT Comment: Some International Normalized R atio (INR) results performed at the [facility] Acute Care Lab for patients [...] City/State/ZIP Code Ph[place] [address] [place] [address], Room M309 (ABNORMAL) Erythrocyte sedimentation rate auto (07/06/2021 3:34 PM CDT) [facility] Method Time Signature Erythrocyte 97 (H) 0 [...] City/State/ZIP Code Phon [place] [address] Care Lab [address] [place] [address], Room M309 (ABNORMAL) CRP inflammation (07/06/2021 3:34 PM CDT) [facility] Method Time Signature CRP Inflammation 65.0 (H) [...] City/State/ZIP Code Phon [place] [address] Care Lab [address] [place] [address], Room M309 (ABNORMAL) Basic metabolic panel (07/06/2021 3:34 PM CDT) [facility] Method Time Signature Sodium 136 133 - [...] and gender (Paul et al., NEJ, DOI: [id number]) Specimen Anatomical Collection Method / Collection Time Recei isak Time (Source) Location / Volume Laterality Blood STRUCTURE OF RIGHT Venipuncture / 07/06/2021 3:34 05/ 4:06 UPPER LIMB / Unknown PM CDT PM CDT Unknown Jah Thompson MD LAB - BLOOD ORDERABLES Performing Organization Address City/State/ZIP Code Phon e Number UR LABORATORY [facility] [place] [address] Care Lab [address] [facility], Room M309 (ABNORMAL) CBC with platelets (07/06/2021 3:34 PM CDT) [facility] Method Time Signature WBC Count 5.7 4.0 [...] City/State/ZIP Code Phon [place] [address] Care Lab [address] [facility], Room M309 documented in this encounter [...] 07/22/2021 8:30 AM CDT 20 mg fexofenadine (SARVANTHI) tablet 180 mg Given 07/22/2021 7:29 PM [...] BEDTIME, First dose (after last modification) on Fri07/19/21 at 2200 Given 07/21/2021 9:47 PM CDT [...] or analgesic side effects. Hold while on FIRST HELPER or with regular IV opioid dosing. Given [...] RN) 0829 (Given - Provider: Areli Schwartz, RN) 0807 (Given - Provider: Andrzej Hodge, GENARO) 162 mg, Oral, DAILY, First dose on Hutto 07/08/21 at 0800, DO NOT C DANIELS. [...] Alisa Ceja RN)1420 (Given - Provider: Areli Schwartz RN)2241 (Given [...] Patient should 214 (Given - Provider: Alisa Ceja RN) not [...] Jay Boswell)1553 (New Bag - Provider: Yani Preciado RN) 0051 (New Bag - Provider: Paulino Ybarra [...] Alisa Ceja RN) 1928 (Given - Provider: Ynai Preciado RN) 180 mg, Oral, DAILY, First dose (after last modificati on) on Fri07/18/21 at 1999 folic acid (FOLVITE) tablet 1 mg 821 (Given - Provider: Norris Sims RN) 08 [...] 2146 (Given - Provider: David Ceja, GENARO) 224 (Not Given - Provider: Yani Preciado, GENARO - Reason: Other - Comment: too soon from last dose given) 25 mg, Oral, AT BEDTIME, First dose on 07/16/21 at 2200 lactulose (CHRONULAC) solution 20 g 08 (Not Given - Provider: Vin Sims RN - Reason: Patient/family refused)1958 (Not Given - Provider: Alisa Ceja RN - Reason: Patient/family refused) 0831 (Given - Provider: Areli Schwartz RN) 224 (Given - Provider: Yani Preciado, GENARO) 08 (Given - Provider: Andrzej Hodge, GENARO) 20 [...] GENARO) 08 (Given - Provider: Andrzej Hodge, GENARO)1401 (Given - Provider: Andrzej Hodge, GENARO) 750 mg, Oral, 3 TIMES DAILY, First dose (after last modification) on Zoe 07/19/21 at 1400 nicotine (NICODERM CQ) 14 MG/24HR 24 hr patch 1 patch 08 (Patch/Med Removed - Provider: Vin Sims RN)0826 (Patch/Med Applied - Provider: Vin Sims RN) 0833 (Patch/Med Removed - Provider: David Schwartz RN)0834 (Patch/Med Applied - Provider: Areli Schwartz RN) 0810 (Patch/Med Removed - Provider: Mckay Hodge RN)0811 (Patch/Med Applied - Provider: Andrzej Hodge, GENARO)1555 (Due: Patch/Med Removed - Provider: Orders Generic [...] Ceja, GENARO) 08 (Given - Provider: Areli Schwartz RN)1928 [...] 0829 (Given - Provider: Areli Schwartz RN) 08 (Given - Provider: Andrzej Hodge RN) 100 mg, Oral, DAILY, First dose on Fri07/07/21 at 0800 triamcinolone (KENALOG) 0.1 % ointment 0832 (Given - P rovider: Vin Sims RN)2004 (Not Given - Provider: Alisa Ceja RN - Reason: Patient/family refused) 08 (Given - Provider: Areli Schwartz RN) 2243 (Not Given - Provider: Yani Preciado RN - Reason: Patient/family refused) 08 (Not Given - Provider: Andrzej Hodge RN - Reason: Medication not available) Topical, 2 TIMES DAILY, First dose on 07/17/21 at 2000, Apply to other rash areas venlafaxine (EFFEXOR XR) 24 hr capsule 300 mg 0821 (Gi alex - Provider: Vin Sims, GENARO) 0829 (Given - Provider: Areli Schwartz, RN) 0807 [...] Vin Sims RN)1504 (Given - Provider: Vin Sims, RN) [...] mg 0221 (Give n - Provider: Alisa Ceja, GENARO) 5 mg, Oral, AT BEDTIME PRN, sleep, [...] Sims, GENARO)1649 (Given - Provider: Vin Sims, GENARO)2351 (Given - Provider: Alisa Ceja, GENARO) 0842 [...] leora lgesic side effects. Hold while on FIRST HELPER or with regular IV opioid dosing. polyethylene [...] mL 10-40 mL, Intracatheter, EVERY 1 HOUR [place] N, other, to lock EACH CVC - [...] documented as of this encounter Care Teams Scroll Machine Operator Relationship Specialty Start Date End Date Juanis Mckenzie PCP - General Addiction Medicine 06/29/[address] [place] [phone] Deann Pina APRN FLUE CLEANER Assigned PCP 02/25/[address] [place] [address] documented as of this encounter
--- OUTSIDE RECORDS SUMMARY | 2021-12-13 12:33 | XMS_ITS | Encounter Summary ---
:1980 Author Organization [place] Address [address] [facility] [place] [address] Care Team Providers Name Role Phone Clinic, [facility] Primary Care Provide r YovaniStephani APRN COPS Unavailable Reason for Visit Reason Onset Date Comments Clinic Care Coordination - Follow-up 03/27/2020 Encounter Details Date Type Department Care Team Description 03/27/2020 [facility] Car [facility] Coord[facility] - Follow-up [address] [address] [place] [address] Social History Tobacco Use Types Packs/Day Years Used Date Smoking Tobacco: Every Day Cigarettes 0.3 10 Smokeless Tobacco: Never Comments: 5-8 cigarettes a day Alcohol Use Standard Drinks/Week Comments Yes 0 (1 standard drink = 0.6 oz pure alcoho l) drinking a pint of vodka daily Sex Assigned at Date Recorded Female 01/14/2020 10:57 AM SUPERVISOR PAPER MACHINE COVID-19 Exposure Response Date Recorded In the last month, have you been in contact with No / Unsure 03/27/2020 9:20 AM SUPERVISOR PAPER MACHINE someone who was confirmed or suspected to have Coronavirus / COVID-19? documented as of this encounter Miscellaneous Notes Telephone Encounter - Kamari Spring - 03/27/2020 11:15 AM CST Stephani is setup with Eri He on the at 4pm with Dr. Jorden Hoffman for accounting technician care. RVISOR PAPER MACHINE documented in this encounter Plan of Treatment Upcoming Encounters Date Type Specialty Care Team Description 12/20/2021 Office Visit Wound Care Luis Camara, DPM [address] [place], [place] [phone] (Wo rk) 01/21/2022 PRE VISIT Gastroenterology Landon Warren, *-*WANDAIN G RECORDS*-* MD Luis Fernando [address] [facility] [address] [place], [place] [phone] (Wo rk) 01/21/2022 Office Visit Gastroenterology Juanis Levi [address] [place] [phone] Luis Fernando Miles MD [address] [place] [id number] documented as of this encounter Visit Diagnoses Not on filedocumented in this encounter Additional Health Concerns Assessment Noted Time PHQ-9 Depression Total Score: 6 12/27/2019 9:38 AM SUPERVISOR PAPER MACHINE documented as of this encounter Care Teams Phone Banker Relationship Specialty Start Date End Date Clinic, [facility] PCP - General 01/20/18 06/28/[address] [place] [address] Stephani Pina, WELDING 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 PLASMA ARC COPS Assigned PCP 01/30/20 12/30/[address] [place] [address] [address] [place], [place] [phone] documented as of this encounter
--- OUTSIDE RECORDS SUMMARY | 2021-12-13 12:33 | XMS_ITS | Encounter Summary ---
:1980 Author Organization [place] Address [address] [place] [address] Care Team Providers Name Role Phone Clinic, [facility] Primary Care Provide r Stephani Pina Kim LEON 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 ASSOCIATE Unavailable [phone] Encounter Details Date Type Department Care [...] at Date Recorded Female 01/14/2020 10:57 AM VASCULAR SONOGRAPHER COVID-19 Exposure Response Date Recorded In the last month, have you been in contact with No / Unsure 02/28/2020 9:23 AM VASCULAR SONOGRAPHER someone who was confirmed or suspected to have Coronavirus / COVID-19? documented as of this encounter Plan of Treatment Upcoming Encounters Date Type Specialty Care Team Description 12/20/2021 Office Visit Wound Care Luis Camara DPM [address] [place] [address] (Reinaldo molina) 01/21/2022 PRE VISIT Gastroenterology Landon Warren, *-*WANDAIN G RECORDS*-* MD Luis Fernando [address] [address] (Wo rk) 01/21/2022 Office Visit Gastroenterology Juanis Levi [address] [place] [address] Luis Fernando Miles MD [address] [facility] [address] [place], [place] [phone] documented as of this encounter Visit Diagnoses Not on filedocumented in this encounter Additional Health Concerns Assessment Noted Time PHQ-9 Depression Total Score: 6 12/27/2019 9:38 AM VASCULAR SONOGRAPHER documented as of this encounter Care Teams Data Analyst Report Writer Relationship Specialty Start Date End Date Clinic, [facility] PCP - General 01/20/18 06/28/[address] [place] [address] Stephani Pnia APRN 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 ASSOCIATE Assigned PCP 01/30/20 12/30/20 [facility] [address] [place] [address] documented as of this encounter
--- OUTSIDE RECORDS SUMMARY | 2021-12-13 12:33 | XMS_ITS | Encounter Summary ---
:1980 Author Organization [place] Address [address] [place] [address] Care Team Providers Name Role Phone Clinic, [facility] Primary Care Provide r Stephani Pina Kim LEON TORCH BURNER Unavailable [phone] Encounter Details Date Type Department Care [...] at Date Recorded Female 01/14/2020 10:57 AM TEASEL GIG OPERATOR COVID-19 Exposure Response Date Recorded In the last month, have you been in contact with No / Unsure 10/25/2020 10:49 AM CDT someone who was confirmed or suspected to have Coronavirus / COVID-19? documented as of this encounter Plan of Treatment Upcoming Encounters Date Type Specialty Care Team Description 12/20/2021 Office Visit Wound Care Luis Camara DPM [address] [place] [address] (Reinaldo molina) 01/21/2022 PRE VISIT Gastroenterology Landon Warren, *-*WANDAIN G RECORDS*-* MD Luis Fernando [address] [address] (Wo rk) 01/21/2022 Office Visit Gastroenterology Juanis Levi [address] [place] [address] Luis Fernando Miles MD [address] [facility] [address] [place], [place] [address] documented as of this encounter Visit Diagnoses Not on filedocumented in this encounter Additional Health Concerns Assessment Noted Time PHQ-9 Depression Total Score: 6 12/27/2019 9:38 AM TEASEL GIG OPERATOR documented as of this encounter Care Teams Laborer Vineyard Relationship Specialty Start Date End Date Clinic, [facility] PCP - General 01/20/18 06/28/[address] [place] [address] Stephani Pina APRN TORCH BURNER Assigned PCP 01/30/20 12/30/20 [facility] [address] [place] [address] documented as of this encounter
--- OUTSIDE RECORDS SUMMARY | 2021-12-13 12:33 | XMS_ITS | Encounter Summary ---
:1980 Author Organization [place] Address [address] [facility] [place] [address] Care Team Providers Name Role Phone Clinic, [facility] Primary Care Provide r Stephani Pina HANDBAG FRAMES INSPECTOR STOCK CRANE OPERATOR Unavailable [phone] Encounter Details Date Type Department Care Team Description 03/12/2021 Office Visit [facility] Edgar Alfredo us e disorder, Clinic Ashly Gauthier MD severe, in sustained [address] [place] remission, on [address] 700 maintenance therapy [place], [place] (H) (Prim jaime Dx) [phone] Social History Tobacco Use Types Packs/Day Years Used Date Smoking Tobacco: Every Day Cigarettes 0.3 10 Smokeless Tobacco: Never Comments: 5-8 cigarettes a day Alcohol Use Standard Drinks/Week Comments Not Currently 0 (1 standard drink = 0.6 oz pure alcoho l) sober since 08/2020 Sex Assigned at Date Recorded Female 01/14/2020 10:57 AM COMMAND AND CONTROL OFFICER COVID-19 Exposure Response Date Recorded In the last month, have you been in contact with No / Unsure 03/05/2021 9:18 AM COMMAND AND CONTROL OFFICER someone who was confirmed or suspected to have Coronavirus / COVID-19? documented as of this encounter Progress Notes Edgar Alfredo MD - 03/12/2021 9:20 AM CST NO SHOW AND AND CONTROL OFFICER documented in this encounter Plan of Treatment Upcoming Encounters Date Type Specialty Care Team Description 12/20/2021 Office Visit Wound Care Hoa Luis Lex, DPM [address] [place], [place] [phone] (Wo rk) 01/21/2022 PRE VISIT Gastroenterology Landon Warren, *-*INCOMIN G RECORDS*-* MD Luis Fernando 6 [facility] 2A [place], [place] [address] (Wo rk) 01/21/2022 Office Visit Gastroenterology Juanis Levi 24[address] [place] [phone] Luis Fernando Miles MD [address] [place] [address] [address] [place], [place] [phone] documented as of this encounter Visit Diagnoses Diagnosis Opioid use disorder, severe, in sustaine d remission, on maintenance therapy (H) - Primary documented in this encounter Additional Health Concerns Assessment Noted Time PHQ-9 Depression Total Score: 2 12/15/2020 1:07 PM CDT documented as of this encounter Care Teams Gullet Slitter Relationship Specialty Start Date End Date Clinic, [facility] PCP - General 01/20/18 06/28/[address] [place] [address] Stephani Pina, HANDBAG FRAMES INSPECTOR STOCK CRANE OPERATOR Assigned PCP 02/25/[address] [place] [address] [place] [address] documented as of this encounter
--- OUTSIDE RECORDS SUMMARY | 2021-12-13 12:33 | XMS_ITS | Encounter Summary ---
:1980 Author Organization [place] Address [facility] [place] [address] Care Team Providers Name Role Phone Clinic, [facility] Primary Care Provide r Eufemia Pinadelon Alvarez APRN FAILURE ANALYSIS ENGINEER Unavailable Reason for Visit Reason Onset Date Comments Labs Only 02/29/[address] [facility]. Encounter Details Date Type Department Care Team Description 02/29/2020 Telephone [facility] Inocencio Newberry Labs Only ([facility] Hepatology Clinic JIMBO eJsus [facility] in [address] 9 [place] [phone] Social History Tobacco Use Types Packs/Day Years Used Date Smoking Tobacco: Every Day Cigarettes 0.3 10 Smokeless Tobacco: Never Comments: 5-8 cigarettes a day Alcohol Use Standard Drinks/Week Comments Yes 0 (1 standard drink = 0.6 oz pure alcoho l) drinking a pint of vodka daily Sex Assigned at Date Recorded Female 01/14/2020 10:57 AM FILM CREW MEMBER COVID-19 Exposure Response Date Recorded In the last month, have you been in contact with No / Unsure 02/28/2020 9:23 AM FILM CREW MEMBER someone who was confirmed or suspected to have Coronavirus / COVID-19? documented as of this encounter Miscellaneous Notes Telephone Encounter - Grothe, Ann Marie - 02/29/2020 4:25 PM CST Lab orders faxed. Patient notified. Hannah Gilmore LPN Hepatology Clinic [facility] Call Center Phone Message May a detailed message be left on voicemail: yes Reason for Call: Order(s): Other: Reason for requested: Pt is requesting for her lab orders to be sent to the [facility] in [facility] Date needed: jesus Provider name: Dr. Newberry Action Taken: Message routed to: [facility] hep Travel Screening: Not Applicable CREW MEMBER documented in this encounter Plan of Treatment Upcoming Encounters Date Type Specialty Care Team Description 12/20/2021 Office Visit Wound Care Luis Camara DPM [address] [place], [place] [phone] (Wo rk) 01/21/2022 PRE VISIT Gastroenterology Landon Warren, *-*WANDAIN G RECORDS*-* MD Luis Fernando [address] [place] [phone] (Wo rk) 01/21/2022 Office Visit Gastroenterology Juanis Levi 24[address] [place] [phone] Luis Fernando Miles MD [address] [place] [address] documented as of this encounter Visit Diagnoses Diagnosis Chronic hepatitis C without hepatic coma (H) - Primary documented in this encounter Additional Health Concerns Assessment Noted Time PHQ-9 Depression Total Score: 6 12/27/2019 9:38 AM FILM CREW MEMBER documented as of this encounter Care Teams Dip Lube Operator Relationship Specialty Start Date End Date Clinic, [facility] PCP - General 01/20/18 06/28/[address] [place] [address] Stephani Pina APRN FAILURE ANALYSIS ENGINEER Assigned PCP 01/30/20 12/30/[address] [place] [address] documented as of this encounter
--- OUTSIDE RECORDS SUMMARY | 2021-12-13 12:33 | XMS_ITS | Encounter Summary ---
:1980 Author Organization [place] Address [address] [place] [address] Care Team Providers Name Role Phone Clinic, [facility] Primary Care Provide r Stephani Pina Kim LEON QUANTITY SURVEYOR Unavailable Encounter Details Date Type Department Care [...] at Date Recorded Female 01/14/2020 10:57 AM REGISTRY NP COVID-19 Exposure Response Date Recorded In the last month, have you been in contact with No / Unsure 03/29/2020 2:20 PM REGISTRY NP someone who was confirmed or suspected to have Coronavirus / COVID-19? documented as of this encounter Plan of Treatment Upcoming Encounters Date Type Specialty Care Team Description 12/20/2021 Office Visit Wound Care Luis Camara DPM 909 [place] [address] (Reinaldo molina) 01/21/2022 PRE VISIT Gastroenterology Landon Warren, *-*WANDAIN G RECORDS*-* MD Luis Fernando 516 [facility] PWB [address] [place] [address] (Wo rk) 01/21/2022 Office Visit Gastroenterology Juanis Levi 2450 [place] [address] Luis Fernando Miles MD [address] [facility] 2A [place], [place] [address] documented as of this encounter Visit Diagnoses Not on filedocumented in this encounter Additional Health Concerns Assessment Noted Time PHQ-9 Depression Total Score: 6 12/27/2019 9:38 AM REGISTRY NP documented as of this encounter Care Teams Nike Athlete Relationship Specialty Start Date End Date Clinic, [facility] PCP - General 01/20/18 06/28/[address] [place] [address] Stephani Pina APRN QUANTITY SURVEYOR Assigned PCP 01/30/20 12/30/20 [facility] [place] [address] [place] [address] documented as of this encounter
--- OUTSIDE RECORDS SUMMARY | 2021-12-13 12:33 | XMS_ITS | Encounter Summary ---
:1980 Author Organization [place] Address [address] [place] [address] Care Team Providers Name Role Phone Clinic, [facility] Primary Care Provide r Guerita Haasherb Bills LATRINE CLEANER HERB DIGGER Unavailable [phone] Encounter Details Date Type Department Care [...] Date Recorded Female 01/14/2020 10:57 AM HOG BUYER COVID-19 Exposure Response Date Recorded In the last month, have you been in contact with No / Unsure 01/11/2020 8:00 PM HOG BUYER someone who was confirmed or suspected to have Coronavirus / COVID-19? documented as of this encounter Plan of Treatment Upcoming Encounters Date Type Specialty Care Team Description 12/20/2021 Office Visit Wound Care Luis Camara DPM 909 [place] [address] (Reinaldo molina) 01/21/2022 PRE VISIT Gastroenterology Landon Warren, *-*WANDAIN G RECORDS*-* MD Luis Fernando [address] [address] (Wo rk) 01/21/2022 Office Visit Gastroenterology Juanis Levi [address] [place] [address] Luis Fernando Miles MD 516 [facility] 2A [place], [place] [address] documented as of this encounter Visit Diagnoses Not on filedocumented in this encounter Additional Health Concerns Assessment Noted Time PHQ-9 Depression Total Score: 6 12/27/2019 9:38 AM HOG BUYER documented as of this encounter Care Teams Elementary Librarian Relationship Specialty Start Date End Date Clinic, [facility] PCP - General 01/20/18 06/28/[address] [place] [address] [phone] Tatyana Haas APRN HERB DIGGER Assigned PCP 08/02/18 01/29/20 [facility] [address] [facility] [address]. [address] [place] [address] documented as of this encounter
--- OUTSIDE RECORDS SUMMARY | 2021-12-13 12:33 | XMS_ITS | Encounter Summary ---
:1980 Author Organization [place] Address [address] [place] [address] Care Team Providers Name Role Phone Clinic, [facility] Primary Care Provide r Stephani Pina Kim YANES SUPERINTENDENT WATER AND SEWER SYSTEMS Unavailable [phone] Reason for Visit Reason Onset Date Comments *-*INCOMING RECORDS*-* 03/03/2020 Encounter Details Date Type Department Care Team Description 03/03/2020 PRE VISIT [facility] Inocencio Newberry *-*HEATHER Barriga RECORDS*-* Hepatology Clinic JIMBO Jesus [address] [phone] Social History Tobacco Use Types Packs/Day Years Used Date Smoking Tobacco: Every Day Cigarettes 0.3 10 Smokeless Tobacco: Never Comments: 5-8 cigarettes a day Alcohol Use Standard Drinks/Week Comments Yes 0 (1 standard drink = 0.6 oz pure alcoho l) drinking a pint of vodka daily Sex Assigned at Date Recorded Female 01/14/2020 10:57 AM TYPEWRITER MECHANIC COVID-19 Exposure Response Date Recorded In the last month, have you been in contact with No / Unsure 02/28/2020 9:23 AM TYPEWRITER MECHANIC someone who was confirmed or suspected to have Coronavirus / COVID-19? documented as of this encounter Miscellaneous Notes Telephone Encounter - Carie Ford Maycol - 03/01/2020 8:17 AM CST RECORDS RECEIVED FROM: Internal Appt Date: 03.03.2020 NOTES STATUS DETAILS OFFICE NOTE from referring provider Internal 02.28.2020 Juanis Levi MD OFFICE NOTES from other specialists Care Everywhere 08.25.2019 Leslie Rasheed D.O. [place] DISCHARGE SUMMARY from hospital Internal 07.04.2018 Joycelyn [...] N/A HEPATITIS B CORE ANTIBODY Internal 12.13.2016 WRITER MECHANIC documented in this encounter Plan of Treatment Upcoming Encounters Date Type Specialty Care Team Description 12/20/2021 Office Visit Wound Care Luis Camara DPM [address] [place], [place] [phone] (Wo rk) 01/21/2022 PRE VISIT Gastroenterology Landon Warren, *-*HEATHER Barriga RECORDS*-* MD Luis Fernando 516 [facility] 2A [place], [place] [address] (Wo rk) 01/21/2022 Office Visit Gastroenterology Juanis Levi [address] [place] [address] [place] [phone] Luis Fernando Miles MD [address] [facility] [place] [address] documented as of this encounter Visit Diagnoses Not on filedocumented in this encounter Additional Health Concerns Assessment Noted Time PHQ-9 Depression Total Score: 6 12/27/2019 9:38 AM TYPEWRITER MECHANIC documented as of this encounter Care Teams Ship Self Defense System Mk1 Operator Relationship Specialty Start Date End Date Clinic, [facility] PCP - General 01/20/18 06/28/21 [address] [place], [place] [phone] Stephani Pina APRN SUPERINTENDENT WATER AND SEWER SYSTEMS Assigned PCP 01/30/20 12/30/20 [facility] 700 [place], [place] [address] documented as of this encounter
--- OUTSIDE RECORDS SUMMARY | 2021-12-13 12:33 | XMS_ITS | Encounter Summary ---
:1980 Author Organization [place] Address [address] [place] [address] Care Team Providers Name Role Phone Clinic, [facility] Primary Care Provide r Stephani Pina Kim LEON LINUX ARCHITECT Unavailable [phone] Encounter Details Date Type Department Care [...] at Date Recorded Female 01/14/2020 10:57 AM CASH REGISTER MECHANIC COVID-19 Exposure Response Date Recorded In the last month, have you been in contact with No / Unsure 05/04/2021 11:13 AM CDT someone who was confirmed or suspected to have Coronavirus / COVID-19? documented as of this encounter Plan of Treatment Upcoming Encounters Date Type Specialty Care Team Description 12/20/2021 Office Visit Wound Care Luis Camara DPM [address] [place] [address] (Reinaldo molina) 01/21/2022 PRE VISIT Gastroenterology Landon Warren, *-*WANDAIN G RECORDS*-* MD Luis Fernando [address] [address] (Wo rk) 01/21/2022 Office Visit Gastroenterology Juanis Levi [address] [place] [address] Luis Fernando Miles MD [address] [facility] [place], [place] [address] documented as of this encounter Visit Diagnoses Not on filedocumented in this encounter Additional Health Concerns Assessment Noted Time PHQ-9 Depression Total Score: 2 12/15/2020 1:07 PM CDT documented as of this encounter Care Teams Revenue Research Analyst Relationship Specialty Start Date End Date Clinic, [facility] PCP - General 01/20/18 06/28/[address] [place] [address] [phone] Stephani Pina APRN LINUX ARCHITECT Assigned PCP 02/25/21 [facility] 700 [place] [address] documented as of this encounter
--- OUTSIDE RECORDS SUMMARY | 2021-12-13 12:33 | XMS_ITS | Encounter Summary ---
:1980 Author Organization [place] Address [facility]0 [place] [address] Care Team Providers Name Role Phone Clinic, [facility] Primary Care Provide r Stephani Pina Kim LEON COPY CENTER SPECIALIST Unavailable Reason for Visit Reason Onset Date Comments Erroneous encounter-disregard 03/26/2021 follow up last seen 08/23/2020 Encounter Details Date Type Department Care Team Description 03/26/2021 PRE VISIT [facility] Landon Warren, Brian Hepatology Clinic MD Luis Fernando encounter-disregard [address] PWB (follow up last seen [address] [facility] [address] 08/23/2020) [place] [address] [phone] (Wo rk) Social History Tobacco Use Types Packs/Day Years Used Date Smoking Tobacco: Every Day Cigarettes 0.3 10 Smokeless Tobacco: Never Comments: 5-8 cigarettes a day Alcohol Use Standard Drinks/Week Comments Not Currently 0 (1 standard drink = 0.6 oz pure alcoho l) sober since 08/2020 Sex Assigned at Date Recorded Female 01/14/2020 10:57 AM SENIOR CYBER INTELLIGENCE ANALYST COVID-19 Exposure Response Date Recorded In the last month, have you been in contact with No / Unsure 03/05/2021 9:18 AM SENIOR CYBER INTELLIGENCE ANALYST someone who was confirmed or suspected to have Coronavirus / COVID-19? documented as of this encounter Miscellaneous Notes Telephone Encounter - Carie Ford Maycol - 03/16/2021 11:11 AM CST disregard OR CYBER INTELLIGENCE ANALYST documented in this encounter Plan of Treatment Upcoming Encounters Date Type Specialty Care Team Description 12/20/2021 Office Visit Wound Care Luis Camara, [place] [address] [place] [address] (Wo rk) 01/21/2022 PRE VISIT Gastroenterology Landon Warren, *-*HEATHER G RECORDS*-* MD Luis Fernando [address] [place] [address] [phone] (Wo rk) 01/21/2022 Office Visit Gastroenterology Juanis Levi 2450 [place] [phone] Luis Fernando Miles MD [address] [place] [address]46195 documented as of this encounter Visit Diagnoses Not on filedocumented in this encounter Additional Health Concerns Assessment Noted Time PHQ-9 Depression Total Score: 2 12/15/2020 1:07 PM CDT documented as of this encounter Care Teams Circulation Sales Representative Relationship Specialty Start Date End Date Clinic, [facility] Medical PCP - General 01/20/18 06/28/21 4[address] [place] [address] Stephani Pina, CENTRAL LAB TECHNICIAN COPY CENTER SPECIALIST Assigned PCP 02/25/21 [address] [facility] 700 [place] [address] documented as of this encounter
--- OUTSIDE RECORDS SUMMARY | 2021-12-13 12:33 | XMS_ITS | Encounter Summary ---
:1980 Author Organization [place] Address [facility] [place] [address] Care Team Providers Name Role Phone Clinic, [facility] Primary Care Provide r Tatyana Haas UNISAW OPERATOR FOOD AND NUTRITION TEACHER Unavailable [phone] Stephani Pina UNISAW OPERATOR FOOD AND NUTRITION TEACHER Unavailable Encounter Details Date Type Department Care Team Description 01/18/2020 Telephone [facility] Generic, [facility] In abigail Rivera MD [address] [place] [phone] Social History Tobacco Use Types Packs/Day Years Used Date Smoking Tobacco: Every Day Cigarettes 0.3 10 Smokeless Tobacco: Never Comments: 5-8 cigarettes a day Alcohol Use Standard Drinks/Week Comments Yes 0 (1 standard drink = 0.6 oz pure alcoho l) drinking a pint of vodka daily Sex Assigned at Date Recorded Female 01/14/2020 10:57 AM FIELD OPERATIONS FARM MANAGER COVID-19 Exposure Response Date Recorded In the last month, have you been in contact with No / Unsure 07/12/2020 11:10 AM CDT someone who was confirmed or suspected to have Coronavirus / COVID-19? documented as of this encounter Miscellaneous Notes Telephone Encounter - Brittnee Lainez - 03/08/2020 2:53 PM CST ----- Message from OLGA Deshpande sent at 03/08/2020 1:47 PM FIELD OPERATIONS FARM MANAGER ----- Regarding: Set up appointments for client at [facility] Patient Name: ??See above Location of programming: [facility] Start Date: 03/13/2020 Group: ([id number] M, W, TH 5:30PM Provider: OLGA Baron Number of visits to be scheduled: 17 Length/Duration of Appointment in minutes: 120 Visit Type (VIDEO/TELEPHONE/IN-PERSON): Video (2257) Additional notes: Thanks OLGA Baron D OPERATIONS FARM MANAGER Telephone Encounter - Brittnee Lainez - 03/02/2020 3:11 PM CST ----- Message from OLGA Deshpande sent at 03/02/2020 2:17 PM FIELD OPERATIONS FARM MANAGER ----- Regarding: Add IOP CD Phase I appointments for client at [facility] Patient Name: ??See above Location of programming: [facility] Start Date:03/02/2020 Group: ([id number] M, T, W, TH 5:30PM Provider: OLGA Baron Number of visits to be scheduled: 5 Length/Duration of Appointment in minutes: M, W, TH 120 T 180 Visit Type (VIDEO/TELEPHONE/IN-PERSON): Video ([id number]) Additional notes: Thanks OLGA Baron D OPERATIONS FARM MANAGER Telephone Encounter - Leticia Donohue - 01/19/2020 3:16 PM CST ----- Message from OLGA Deshpande sent at 01/19/2020 2:58 PM FIELD OPERATIONS FARM MANAGER ----- Regarding: Move 1:1 appointment for client from 01/18 to 01/19 Please move the 1:1 appointment scheduled for the above client with me for January 18 at 4:30PM to January 19 at 4:30PM at [facility]. 3757 video appointment. My provider ID is: [id number]. Thanks OLGA Baron D OPERATIONS FARM MANAGER Telephone Encounter - Victoria Nunes - 01/18/2020 1:50 PM CST ----- Message from OLGA Deshpande sent at 01/17/2020 3:35 PM FIELD OPERATIONS FARM MANAGER ----- Regarding: RE: Referring to [facility] Please arrange for a 1:1 appointment for the above client via video with me on January 2at 4:30PM. My provider ID is; [id number] Patient Name: See above?? Location of programming: [facility] clinic Start Date: 01/19/2020 Group: ([id number] M, T, W, TH 5:30PM Provider: OLGA Baron Number of visits to be scheduled: 26 Length/Duration of Appointment in minutes: M, W, Th, 120 T 180 Visit Type (VIDEO/TELEPHONE/IN-PERSON): Video ([id number]) Additional notes: Thanks OLGA Baron ----- Message ----- From: June Porter LADC Sent: 01/14/2020 2:30 PM FIELD OPERATIONS FARM MANAGER To: OLGA Deshpande, [facility] Outpatient Intake Subject: Referring to [facility] Hey- I've referred this patient to [facility] evening [facility]. Comp assessment completed. She is likely to discharge from today 01/14/2020 and is instructed to follow up with Britton to schedule. Please reach out to patient to coordinate. Thanks! June #[id number] D OPERATIONS FARM MANAGER documented in this encounter Plan of Treatment Upcoming Encounters Date Type Specialty Care Team Description 12/20/2021 Office Visit Wound Care Luis Camara DPM [address] [place] [address] (Wo rk) 01/21/2022 PRE VISIT Gastroenterology Landon Warren, *-*WANDAIN G RECORDS*-* MD Luis Fernando [address] [address] (Wo rk) 01/21/2022 Office Visit Gastroenterology Juanis Levi 24[address] [place] [address] Luis Fernando Miles MD 516 [facility] [address] [place], [place] [address] documented as of this encounter Visit Diagnoses Diagnosis Alcohol abuse, continuous - Primary Nondependent alcohol abuse, continuous d rinking behavior documented in this encounter Additional Health Concerns Assessment Noted Time PHQ-9 Depression Total Score: 6 12/27/2019 9:38 AM FIELD OPERATIONS FARM MANAGER documented as of this encounter Care Teams Prism Measurer Relationship Specialty Start Date End Date Clinic, [facility] PCP - General 01/20/18 06/28/21 [facility] [place] [address] Tatyana Haas APRN FOOD AND NUTRITION TEACHER Assigned PCP 08/02/18 01/29/[address] [facility] [address] [facility] [address] [place] [address] Stephani Pina APRN FOOD AND NUTRITION TEACHER Assigned PCP 01/30/20 12/30/[address] [place] [address] [address] [place] [address] documented as of this encounter
--- OUTSIDE RECORDS SUMMARY | 2021-12-13 12:33 | XMS_ITS | Encounter Summary ---
:1980 Author Organization [place] Address [address] [facility] [place] [address] Care Team Providers Name Role Phone Clinic, [facility] Primary Care Provide r Stephani Pina APRN AVIATION MANAGER Unavailable Juanis Levi Primary Care Provider Elsa Yeh RN Unavailable Unavailable Rogelio Treadwell MD Unavailable [phone] Luis Camara DPM Unavailable [phone] Camryn Christina MD Unavailable Sintia Lange PA-C Unavailable Luis Fernando Miles MD Unavailable [phone] Encounter Details Date Type Department Care Team Description 02/27/2021 Telephone [facility] Nithya Alfredo MD [place] [address] [place] [address] [place] [phone] [place] [phone] Social History Tobacco Use Types Packs/Day Years Used Date Smoking Tobacco: Every Day Cigarettes 0.3 10 Smokeless Tobacco: Never Comments: 5-8 cigarettes a day Alcohol Use Standard Drinks/Week Comments Not Currently 0 (1 standard drink = 0.6 oz pure alcoho l) sober since 08/2020 Sex Assigned at Date Recorded Female 01/14/2020 10:57 AM COSTING MANAGER documented as of this encounter Miscellaneous [...] sick with Covid. Patient will end back [place] message as needed. Rn also gave patient the contact number to call triage back as needed. ING MANAGER Telephone Encounter - Lurdes Lucas - 02/27/2021 1:55 PM CST Pt reports she missed her appt this morning because she and her family are sick with COVID. Appt wasrescheduled, but she asked for a bridge of her medications until then. ING MANAGER documented in this encounter Plan of Treatment Upcoming Encounters Date Type Specialty Care Team Description 12/20/2021 Office Visit Wound Care Luis Camara DPM 909 [place] [address] (Reinaldo molina) 01/21/2022 PRE VISIT Gastroenterology Landon Warren, *-*INCOMIN G RECORDS*-* MD Luis Fernando 516 [facility] 2A [place] [address] (Reinaldo molina) 01/21/2022 Office Visit Gastroenterology Juanis Levi 2450 [place] [address] Luis Fernando Miles MD 516 [facility] [address] [place] [address] documented as of this encounter Visit Diagnoses Not on filedocumented in this encounter Additional Health Concerns Infection Onset Date Last Indicated Resolved Time MRSAComment: Added from external infection. 11/07/201406/18 Assessment Noted Time PHQ-9 Depression Total Score: 2 12/15/2020 1:07 PM CDT documented as of this encounter Care Teams Evp Strategy Relationship Specialty Start Date End Date Clinic, [facility] PCP - General 01/20/[address] [id number] Juanis Levi PCP - General Addiction Medicine 06/29/21 [facility] [place] [address] Stephani Pina, Assigned PCP 02/25/21 SUPERVISOR WEAVING AVIATION MANAGER [address] [place], [place] [phone] Elsa eYh, Registered Nurse Infectious Diseases 07/25/21 RN Rogelio Treadwell Assigned Musculoskeletal 08/04/21 MD August Provider [address] [place], [place] [phone] Luis Camara MD Podiatry 08/16/21 [place] Burnett [address] [place], [place] 28[address] Camryn Christina Assigned Surgical 09/01/21 09/07/21 MD Lexie Provider 420 [facility] 195 [place] [address] Sintia Lange PA-C Assigned Surgical 09/08/[address] Provider FLOOR [place], [place] [address] Landon Warren MD Gastroenterology 11/21/21 MD Luis Fernando [address] [place] [address] [address] [place], [place] 6[address] documented as of this encounter
--- OUTSIDE RECORDS SUMMARY | 2021-12-13 12:33 | XMS_ITS | Encounter Summary ---
:1980 Author Organization [place] Address [address] [place] [address] Care Team Providers Name Role Phone Clinic, [facility] Primary Care Provide r Stephani Pina Kim LEON STATE PATROL OFFICER Unavailable Encounter Details Date Type Department Care [...] at Date Recorded Female 01/14/2020 10:57 AM QUALITY ASSURANCE MANAGER COVID-19 Exposure Response Date Recorded In the last month, have you been in contact with No / Unsure 03/27/2020 9:20 AM QUALITY ASSURANCE MANAGER someone who was confirmed or suspected to have Coronavirus / COVID-19? documented as of this encounter Plan of Treatment Upcoming Encounters Date Type Specialty Care Team Description 12/20/2021 Office Visit Wound Care Luis Camara DPM 909 [place] [address] (Reinaldo molina) 01/21/2022 PRE VISIT Gastroenterology Landon Warren, *-*WANDAIN G RECORDS*-* MD Luis Fernando 516 [facility] [address] [address] (Wo rk) 01/21/2022 Office Visit Gastroenterology Juanis Levi 2450 [place] [address] Luis Fernando Miles MD 516 [facility] 2A [place], [place] [address] documented as of this encounter Visit Diagnoses Not on filedocumented in this encounter Additional Health Concerns Assessment Noted Time PHQ-9 Depression Total Score: 6 12/27/2019 9:38 AM QUALITY ASSURANCE MANAGER documented as of this encounter Care Teams Press Operator Printing Relationship Specialty Start Date End Date Clinic, [facility] PCP - General 01/20/18 06/28/[address] [place] [address] Stephani Pina APRN STATE PATROL OFFICER Assigned PCP 01/30/20 12/30/20 [facility] [address] [place] [address] documented as of this encounter
--- OUTSIDE RECORDS SUMMARY | 2021-12-13 12:33 | XMS_ITS | Encounter Summary ---
:1980 Author Organization [place] Address [address] [place] [address] Care Team Providers Name Role Phone Clinic, [facility] Primary Care Provide r YovaniStephani APRN TSA SCREENER Unavailable Encounter Details Date Type Department Care [...] Date Recorded Female 01/14/2020 10:57 AM OIL CHANGER COVID-19 Exposure Response Date Recorded In the last month, have you been in contact with No / Unsure 07/12/2020 11:10 AM CDT someone who was confirmed or suspected to have Coronavirus / COVID-19? documented as of this encounter Plan of Treatment Upcoming Encounters Date Type Specialty Care Team Description 12/20/2021 Office Visit Wound Care Luis Camara DPM 909 [place] [address] (Wo rk) 01/21/2022 PRE VISIT Gastroenterology Landon Warren, *-*WANDAIN G RECORDS*-* MD Luis Fernando 516 [facility] [address] [place] [address] (Wo rk) 01/21/2022 Office Visit Gastroenterology Juanis Levi 2450 [place] [address] Luis Fernando Miles MD 516 [facility] [place], [place] [address] documented as of this encounter Visit Diagnoses Not on filedocumented in this encounter Additional Health Concerns Assessment Noted Time PHQ-9 Depression Total Score: 6 12/27/2019 9:38 AM OIL CHANGER documented as of this encounter Care Teams General Supervisor Relationship Specialty Start Date End Date Clinic, [facility] PCP - General 01/20/18 06/28/[address] [place] [address] Stephani Pina APRN TSA SCREENER Assigned PCP 01/30/20 12/30/20 [address] [place] [address] documented as of this encounter
--- OUTSIDE RECORDS SUMMARY | 2021-12-13 12:33 | XMS_ITS | Encounter Summary ---
:1980 Author Organization [place] Address [facility] [place] [address] Care Team Providers Name Role Phone Clinic, [facility] Primary Care Provide r Eufemia Pinadelon Alvarez APRN LUGGAGE MAKER Unavailable Encounter Details Date Type Department Care Team Description 03/28/2020 Telephone [facility] Generic, Behavioral Behavioral Health In abigail Rivera MD 500 [place] [address] Social History Tobacco Use Types Packs/Day Years Used Date Smoking Tobacco: Every Day Cigarettes 0.3 10 Smokeless Tobacco: Never Comments: 5-8 cigarettes a day Alcohol Use Standard Drinks/Week Comments Yes 0 (1 standard drink = 0.6 oz pure alcoho l) drinking a pint of vodka daily Sex Assigned at Date Recorded Female 01/14/2020 10:57 AM LUDLOW 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 COVID-19 Exposure Response Date Recorded [...] KRYSTA Phase II appointment for client at [facility] Patient Name: ??See above Location of programming: [facility] Start Date: 05/18/2020 Group: ([id number] TH 5:30PM Provider: OLGA Baron Number of visits to be scheduled: 1 Length/Duration of Appointment in minutes: 120 Visit Type (VIDEO/TELEPHONE/IN-PERSON): Video ([id number]) Additional notes: Thanks OLGA Baron Telephone Encounter - Triston Cameron - 05/10/2020 8:17 AM CDT ----- Message from OLGA Deshpande sent at 05/09/2020 7:28 PM CDT ----- Regarding: Add 1 IOP KRYSTA Phase II appointment for client at [facility] Patient Name: ??See above Location of programming: [facility] Holiday Start Date: 05/11/20 Group: ([id number] TH Provider: OLGA Baron Number of visits to be scheduled: 1 Length/Duration of Appointment in minutes: 120 Visit Type (VIDEO/TELEPHONE/IN-PERSON): Video ([id number]) Additional notes: OLGA Baron Telephone Encounter - Brittnee Lainez - 04/21/2020 3:34 PM CST ----- Message from OLGA Deshpande sent at 04/21/2020 3:16 PM LUDLOW 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 ----- Regarding: Set up IOP Phase III appointments for client at [facility] Patient Name: ??See above Location of programming: [facility] Start Date: 04/25/20 Group: ([id number] T 5:30PM Provider: OLGA Baron Number of visits to be scheduled: 8 Length/Duration of Appointment in minutes: 120 Visit Type (VIDEO/TELEPHONE/IN-PERSON): Video ([id number]) Additional notes: OLGA Jacobson OW 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 Telephone Encounter - Brittnee Lainez - 04/21/2020 3:24 PM CST ----- Message from OLGA Deshpande sent at 04/21/2020 3:15 PM LUDLOW 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 ----- Regarding: Cancel all future mixed IOP KRYSTA Phase II appointments at [facility] Please arrange to cancel all future mixed IOP KRYSTA Phase II appointments for the above client at the [facility] effective immediately. [id number]. Client will begin Phase III next week. Thanks OLGA Baron OW 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 Telephone Encounter - Britton Goodwin LADC - 04/05/2020 4:29 PM CST Received call from Aarti Tirado [facility]. CPS worker regarding getting notes regarding client. Indicated she would fax GIOVANNA to me. Aarti asked me specifically about client sobriety since client has not come in to [facility] for required breath tests. I reported [...] information whatever their protocol indicates. OLGA Baron OW 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 Telephone Encounter - Allie Aguilera - 03/28/2020 4:49 PM CST ----- Message from OLGA Deshpande sent at 03/28/2020 3:38 PM LUDLOW 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 ----- Regarding: Set up 1:1 appointment for client with me via video at [facility] Please arrange a 1:1 video (9529) appointment with me for the above client for March 29 at 1PM. My provider ID is; [id number]. Thanks OLGA Baron OW 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 documented in this encounter Plan of Treatment Upcoming Encounters Date Type Specialty Care Team Description 12/20/2021 Office Visit Wound Care Yamileth Camaraon Lex, DPM 9[address] [place] [address] (Wo rk) 01/21/2022 PRE VISIT Gastroenterology Landon Warren, *-*WANDAIN G RECORDS*-* MD Luis Fernando 516 [facility] 2A [place], [place] [address] (Wo rk) 01/21/2022 Office Visit Gastroenterology Juanis Levi 2450 [place] [phone] Luis Fernando Miles MD [address] [address] documented as of this encounter Visit Diagnoses Diagnosis Alcohol abuse, continuous - Primary Nondependent alcohol abuse, continuous d rinking behavior documented in this encounter Additional Health Concerns Assessment Noted Time PHQ-9 Depression Total Score: 6 12/27/2019 9:38 AM LUDLOW 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 documented as of this encounter Care Teams Jig Box Operator Relationship Specialty Start Date End Date Clinic, [facility] PCP - General 01/20/18 06/28/[address] [place] [address] Stephani Pina, LINOLEUM FLOOR INSTALLER LUGGAGE MAKER Assigned PCP 01/30/20 12/30/[address] [address] documented as of this encounter
--- OUTSIDE RECORDS SUMMARY | 2021-12-13 12:33 | XMS_ITS | Encounter Summary ---
:1980 Author Organization [place] Address 24[address] [facility] [place] [address] Care Team Providers Name Role Phone Clinic, [facility] Primary Care Provide r Stephani Pina REFORMATORY ATTENDANT BEHAVIORIST Unavailable Encounter Details Date Type Department Care Team Description 02/27/2021 Office Visit [facility] Edgar Alfredo us e disorder, Clinic Ashly Gauthier MD severe, in sustained [address] remission, on [address] 700 maintenance therapy [place], [place] (H) (Prim jaime Dx) [address] Social History Tobacco Use Types Packs/Day Years Used Date Smoking Tobacco: Every Day Cigarettes 0.3 10 Smokeless Tobacco: Never Comments: 5-8 cigarettes a day Alcohol Use Standard Drinks/Week Comments Not Currently 0 (1 standard drink = 0.6 oz pure alcoho l) sober since 08/2020 Sex Assigned at Date Recorded Female 01/14/2020 10:57 AM FIGURE CLERK documented as of this encounter Progress Notes Edgar Alfredo MD - 02/27/2021 9:15 AM CST NO SHOW RE CLERK documented in this encounter Plan of Treatment Upcoming Encounters Date Type Specialty Care Team Description 12/20/2021 Office Visit Wound Care Luis Camara, [place] [address] [place], [place] [address] (Wo rk) 01/21/2022 PRE VISIT Gastroenterology Landon Warren, *-*INCOMIN G RECORDS*-* MD Luis Fernando 516 [facility] 2A [place], [place] [phone] (Wo rk) 01/21/2022 Office Visit Gastroenterology Juanis Levi 2450 [place] [phone] Luis Fernando Miles MD [address] [address] documented as of this encounter Visit Diagnoses Diagnosis Opioid use disorder, severe, in sustaine d remission, on maintenance therapy (H) - Primary documented in this encounter Additional Health Concerns Assessment Noted Time PHQ-9 Depression Total Score: 2 12/15/2020 1:07 PM CDT documented as of this encounter Care Teams Erosion Control Specialist Relationship Specialty Start Date End Date Clinic, [facility] PCP - General 01/20/18 06/28/[address] [place] [phone] Stephani Pina, REFORMATORY ATTENDANT BEHAVIORIST Assigned PCP 02/25/21 [address] [place] [address] documented as of this encounter
--- OUTSIDE RECORDS SUMMARY | 2021-12-13 12:33 | XMS_ITS | Encounter Summary ---
:1980 Author Organization [place] Address [address] [place] [address]. [place] [address] Care Team Providers Name Role Phone Stephani Pina APRN AUTOMATIC BUFFING WHEEL FORMER Unavailable [phone] Juanis Levi Primary Care Provider Reason for Visit Auth/Cert Specialty Diagnoses / Procedures Referred By Contact Refer red To Contact Med Surg Diagnoses Complicated Osteomyelitis [facility] [address] [place] [phone] Phone: Fax: Referral ID Status Reason Start Date Expiration Date Visits Requ ested Visits Authorized [id number] 1 1 Encounter Details Date Type Department Care Team Description 07/07/2021 Anesthesia Event [facility] Roosevelt Doan MD [address] [place] [address] PeriOp Services Victoria Christy MD 500 [place] [address] [place] [address] Anesthesia Record Procedure Summary Procedure Name Responsible Anesthesia Start Anesthesia Stop Anesthesiologist Time Time IRRIGATION AND Roosevelt Doan MD 07/07/21 0757 07/07/21 0934 DEBRIDEMENT, FOOT and ankle, wound vac exchange (Right: Foot) Events Date Time Event Comment 07/07/2021 0647 SHUTTLE REPAIRER Ready for Procedure 0757 An Start 0758 [...] Dickinson Fellegy, Mattilyn A, Time: 821 (created PROPOSAL ANALYST SHUTTLE REPAIRER FARZANA SHUTTLE REPAIRER via procedure documentation); Airway Type: Standard LMA; Mask Ventilation: 0; LMA Size: 4; Airway Brand: Air-Q; Attempts: 1 Packing 07/07/21; 0903; 07/07/21 0903 by 07/23/21 1655 b y Right, Lateral; Monica Vallejo RN Inpatient, Nurse Ankle; Other (Comment) (3 pieces black wound vac sponge); 3; 07/23/21; 1655 Incision/Surgical Site 07/07/21; 0912; 07/07/21 0912 by 08/15/21 1200 by Right; Ankle; [facility] 08/15/21; Sadaf J RN documented in this encounter Social History Tobacco Use Types Packs/Day Years Used Date Smoking Tobacco: Every Day Cigarettes 0.3 10 Smokeless Tobacco: Never Comments: 5-8 cigarettes a day Alcohol Use Standard Drinks/Week Comments Not Currently 0 (1 standard drink = 0.6 oz pure alcoho l) sober since 08/2020 Sex Assigned at Date Recorded Female 01/14/2020 10:57 AM FAMILY SERVICES ASSISTANT documented as of this encounter OR Notes [...] Patient location during procedure: OR Staff - SHUTTLE REPAIRER: Irene Dickinson APRN CRNA Performed By: SHUTTLE REPAIRER Consent for Airway Urgency: elective Indications and [...] So Luciano MD; Location: UR OR ??? PAROLE BOARD MEMBER SURGERY ??? ORTHOPEDIC SURGERY ??? THORACIC SURGERY [...] and realistic alternatives discussed. Questions answered and patient/account service representative(s) expressed understanding. - Discussed: - [...] Care Transfer Note - Irene Dickinson APRN SHUTTLE REPAIRER - 07/07/2021 9:39 AM CDT Patient: Stephani [...] Visit Wound Care Luis Camara, [place] [address] [place] [address] (Wo rk) 01/21/2022 PRE VISIT Gastroenterology Landon Warren, *-*INCOMIN G RECORDS*-* MD Luis Fernando [address] [place] [address] (Wo rk) 01/21/2022 Office Visit Gastroenterology Juanis Levi [address]50 [place] [phone] Luis Fernando Miles MD [address] [place] [address] documented as of this encounter Procedures Procedure [...] during procedure : OR Staff - ? SHUTTLE REPAIRER: Irene Dickinson APRN C RNA ? Performed By: SHUTTLE REPAIRER Consent for Airway ? Urgency: elective Indications [...] Dentition: Intact and Unchanged Roosevelt Doan MD [place] ANESTHESIA documented in this encounter Visit Diagnoses [...] or analgesic side effects. Hold while on DATA TRANSCRIBER or with regular IV opioid dosing Given [...] as of this encounter Care Teams Clinical Education Academic Coordinator Relationship Specialty Start Date End Date Juanis Levi PCP - General Addiction Medicine 06/29/21 [address] [place] [phone] Stephani Pina APRN AUTOMATIC BUFFING WHEEL FORMER Assigned PCP 02/25/[address] [place] [address] 700 [place] [address] documented as of this encounter
--- OUTSIDE RECORDS SUMMARY | 2021-12-13 12:33 | XMS_ITS | Encounter Summary ---
:1980 Author Organization [place] Address [address] [place] [address] Care Team Providers Name Role Phone Clinic, [facility] Primary Care Provide r YovaniStephani APRN MACHINIST BENCH Unavailable Reason for Visit Reason Onset Date Comments Erroneous encounter-disregard 08/25/2020 Encounter Details Date Type Department Care Team Description 08/23/2020 Virtual Visit [facility] Inocencio Newberry ERRONEOUS Hepatology Clinic JIMBO Jesus ENCOUNTER--DISREGARD [address] (Primary Dx) [address] [place] [phone] Social History Tobacco Use Types Packs/Day Years Used Date Smoking Tobacco: Every Day Cigarettes 0.3 10 Smokeless Tobacco: Never Comments: 5-8 cigarettes a day Alcohol Use Standard Drinks/Week Comments Not Currently 0 (1 standard drink = 0.6 oz pure drinki ng a pint of vodka daily alcohol) Sex Assigned at Date Recorded Female 01/14/2020 10:57 AM DIGITAL STRATEGIST SENIOR MANAGER COVID-19 Exposure Response Date Recorded In [...] Visit Wound Care Luis Camara, [place] [address] [place] [address] (Wo rk) 01/21/2022 PRE VISIT Gastroenterology Landon Warren, *-*WANDAIN G RECORDS*-* MD Luis Fernando [address] [place] [address] (Wo rk) 01/21/2022 Office Visit Gastroenterology Juanis Levi [address] [place] [phone] Luis Fernando Miles MD [address] [place] [address] documented as of this encounter Visit Diagnoses Diagnosis ERRONEOUS ENCOUNTER--DISREGARD - Primary documented in this encounter Additional Health Concerns Assessment Noted Time PHQ-9 Depression Total Score: 6 12/27/2019 9:38 AM DIGITAL STRATEGIST SENIOR MANAGER documented as of this encounter Care Teams Drafter Seismograph Relationship Specialty Start Date End Date Clinic, [facility] PCP - General 01/20/18 06/28/21 4[address] [place] [address] Stephani Pina, FARZANA MACHINIST BENCH Assigned PCP 01/30/20 12/30/20 [address] [place] [address] documented as of this encounter
--- OUTSIDE RECORDS SUMMARY | 2021-12-13 12:33 | XMS_ITS | Encounter Summary ---
:1980 Author Organization [place] Address [facility] [place] [address] Care Team Providers Name Role Phone Clinic, [facility] Primary Care Provide r YovaniStephani APRN COFFEE SOMMELIER Unavailable Encounter Details Date Type Department Care Team Description 06/21/2020 Telephone [facility] Generic, Behavioral Behavioral Health In abigail Rivera MD [address] [place] [address] Social History Tobacco Use Types Packs/Day Years Used Date Smoking Tobacco: Every Day Cigarettes 0.3 10 Smokeless Tobacco: Never Comments: 5-8 cigarettes a day Alcohol Use Standard Drinks/Week Comments Not Currently 0 (1 standard drink = 0.6 oz pure drinki ng a pint of vodka daily alcohol) Sex Assigned at Date Recorded Female 01/14/2020 10:57 AM COIL PLACER COVID-19 Exposure Response Date Recorded In the [...] ----- Regarding: Add appointments for client at [facility] Patient Name: ??See above Location of programming: [facility] [place] [facility] Start Date: 06/20/20 Group: ([id number] T 5:30PM Provider: OLGA Baron Number of visits to be scheduled: 4 Length/Duration of Appointment in minutes: 120 Visit Type (VIDEO/TELEPHONE/IN-PERSON): Video (2073) Additional notes: Thanks OLGA Baron documented in this encounter Plan of Treatment Upcoming Encounters Date Type Specialty Care Team Description 12/20/2021 Office Visit Wound Care Luis Camara, [place] [address] [place], [place] [address] (Wo rk) 01/21/2022 PRE VISIT Gastroenterology Landon Warren, *-*WANDAIN G RECORDS*-* MD Luis Fernando [address] [place] [phone] (Wo rk) 01/21/2022 Office Visit Gastroenterology Juanis Levi [address] [place] [phone] Luis Fernando Miles MD [address] [place] [address] documented as of this encounter Visit Diagnoses Diagnosis Alcohol abuse, continuous - Primary Nondependent alcohol abuse, continuous d rinking behavior documented in this encounter Additional Health Concerns Assessment Noted Time PHQ-9 Depression Total Score: 6 12/27/2019 9:38 AM COIL PLACER documented as of this encounter Care Teams Coat Ironer Hand Relationship Specialty Start Date End Date Clinic, [facility] PCP - General 01/20/18 06/28/21 [address] [place] [address] Stephani Pina APRN COFFEE SOMMELIER Assigned PCP 01/30/20 12/30/[address] [place] [address] 700 [place] [address] documented as of this encounter
--- OUTSIDE RECORDS SUMMARY | 2021-12-13 12:33 | XMS_ITS | Encounter Summary ---
:1980 Author Organization [place] Address [address] [place] [address] Care Team Providers Name Role Phone Clinic, [facility] Primary Care Provide r Stephani Pina Kim YANES COMPANY ACCOUNTANT Unavailable [phone] Reason for Visit Reason Onset Date Comments Erroneous encounter-disregard 03/07/2020 Encounter Details Date Type Department Care Team Description 03/03/2020 Virtual Visit [facility] Inocencio Newberry ERRONEOUS Hepatology Clinic JIMBO Jesus ENCOUNTER--DISREGARD [address] (Primary Dx) [address] [place] [address] [phone] Social History Tobacco Use Types Packs/Day Years Used Date Smoking Tobacco: Every Day Cigarettes 0.3 10 Smokeless Tobacco: Never Comments: 5-8 cigarettes a day Alcohol Use Standard Drinks/Week Comments Yes 0 (1 standard drink = 0.6 oz pure alcoho l) drinking a pint of vodka daily Sex Assigned at Date Recorded Female 01/14/2020 10:57 AM BIOMEDICAL SERVICE ENGINEER COVID-19 Exposure Response Date Recorded In the last month, have you been in contact with No / Unsure 02/28/2020 9:23 AM BIOMEDICAL SERVICE ENGINEER someone who was confirmed or suspected to have Coronavirus / COVID-19? documented as of this encounter Progress Notes Violeta Mckay CMA - 03/03/2020 9:45 AM CST Not feeling well and asked to be rescheduled for next week. Violeta Mckay CMA EDICAL SERVICE ENGINEER Inocencio Newberry PA-C - 03/03/2020 9:45 AM CST This encounter was opened in error. Please disregard. EDICAL SERVICE ENGINEER documented in this encounter Plan of Treatment Upcoming Encounters Date Type Specialty Care Team Description 12/20/2021 Office Visit Wound Care Luis Camara, [place] [address] [place] [address] (Wo rk) 01/21/2022 PRE VISIT Gastroenterology Landon Warren, *-*WANDAIN G RECORDS*-* MD Luis Fernando [address] [place] [address] (Wo rk) 01/21/2022 Office Visit Gastroenterology Juanis Levi [address]50 [place] [phone] Luis Fernando Miles MD [address] [place] [address] documented as of this encounter Visit Diagnoses Diagnosis ERRONEOUS ENCOUNTER--DISREGARD - Primary documented in this encounter Additional Health Concerns Assessment Noted Time PHQ-9 Depression Total Score: 6 12/27/2019 9:38 AM BIOMEDICAL SERVICE ENGINEER documented as of this encounter Care Teams Straw Hat Machine Operator Relationship Specialty Start Date End Date Clinic, [facility] PCP - General 01/20/18 06/28/21 [facility] [place] [address] Stephani Pina APRN COMPANY ACCOUNTANT Assigned PCP 01/30/20 12/30/[address] [place] [address] documented as of this encounter
--- OUTSIDE RECORDS SUMMARY | 2021-12-13 12:33 | XMS_ITS | Encounter Summary ---
:1980 Author Organization [place] Address [address] [place] [address] Care Team Providers Name Role Phone Clinic, [facility] Primary Care Provide r Guerita Haasherb Bills LOOM STOP CHECKER MOBILE HOME LABORER Unavailable [phone] Encounter Details Date Type Department Care [...] Date Recorded Female 01/14/2020 10:57 AM LOAD PLANNER COVID-19 Exposure Response Date Recorded In the last month, have you been in contact with No / Unsure 01/07/2020 9:15 AM LOAD PLANNER someone who was confirmed or suspected to have Coronavirus / COVID-19? documented as of this encounter Plan of Treatment Upcoming Encounters Date Type Specialty Care Team Description 12/20/2021 Office Visit Wound Care Luis Camara DPM [address] [place] [address] (Reinaldo molina) 01/21/2022 PRE VISIT Gastroenterology Landon Warren, *-*WANDAIN G RECORDS*-* MD Luis Fernando 516 [facility] [address] [address] (Wo rk) 01/21/2022 Office Visit Gastroenterology Juanis Levi [address] [place] [address] Luis Fernando Miles MD 516 [facility] [address] [place], [place] [address] documented as of this encounter Visit Diagnoses Not on filedocumented in this encounter Additional Health Concerns Assessment Noted Time PHQ-9 Depression Total Score: 6 12/27/2019 9:38 AM LOAD PLANNER documented as of this encounter Care Teams Shrimp Trawler Captain Relationship Specialty Start Date End Date Clinic, [facility] PCP - General 01/20/18 06/28/[address] [place] [address] [id number] Tatyana Haas APRN MOBILE HOME LABORER Assigned PCP 08/02/18 01/29/20 [facility] [address] [facility] [address] [place] [address] documented as of this encounter
--- OUTSIDE RECORDS SUMMARY | 2021-12-13 12:33 | XMS_ITS | Encounter Summary ---
:1980 Author Organization [place] Address [address] [place] [address] Care Team Providers Name Role Phone Clinic, [facility] Primary Care Provide r YovaniStephani APRN ONCOLOGIST Unavailable Encounter Details Date Type Department Care [...] at Date Recorded Female 01/14/2020 10:57 AM TANK CAR LOADER COVID-19 Exposure Response Date Recorded In the last month, have you been in contact with No / Unsure 08/16/2020 11:17 AM CDT someone who was confirmed or suspected to have Coronavirus / COVID-19? documented as of this encounter Plan of Treatment Upcoming Encounters Date Type Specialty Care Team Description 12/20/2021 Office Visit Wound Care Luis Camara DPM 909 [place] [address] (Wo rk) 01/21/2022 PRE VISIT Gastroenterology Landon Warren, *-*WANDAIN G RECORDS*-* MD Luis Fernando 516 [facility] [address] [place] [address] (Wo rk) 01/21/2022 Office Visit Gastroenterology Juanis Levi [address] [place] [address] Luis Fernando Miles MD 516 [facility] [place], [place] [address] documented as of this encounter Visit Diagnoses Not on filedocumented in this encounter Additional Health Concerns Assessment Noted Time PHQ-9 Depression Total Score: 6 12/27/2019 9:38 AM TANK CAR LOADER documented as of this encounter Care Teams Product Applications Scientist Relationship Specialty Start Date End Date Clinic, [facility] PCP - General 01/20/18 06/28/[address] [place] [address] Stephani Pina APRN ONCOLOGIST Assigned PCP 01/30/20 12/30/[address] [place] [address] documented as of this encounter
--- OUTSIDE RECORDS SUMMARY | 2021-12-13 12:33 | XMS_ITS | Encounter Summary ---
:1980 Author Organization [place] Address [address] [place] [address] Care Team Providers Name Role Phone Clinic, [facility] Primary Care Provide r YovaniStephani APRN STOCK CONTROL CLERK Unavailable Encounter Details Date Type Department [...] at Date Recorded Female 01/14/2020 10:57 AM ENGAGEMENT LEAD COVID-19 Exposure Response Date Recorded In the last month, have you been in contact with No / Unsure 09/27/2020 10:05 AM CDT someone who was confirmed or suspected to have Coronavirus / COVID-19? documented as of this encounter Plan of Treatment Upcoming Encounters Date Type Specialty Care Team Description 12/20/2021 Office Visit Wound Care Luis Camara DPM 909 [place] [address] (Wo rk) 01/21/2022 PRE VISIT Gastroenterology Landon Warren, *-*WANDAIN G RECORDS*-* MD Luis Fernando 516 [facility] [address] [place] [address] (Wo rk) 01/21/2022 Office Visit Gastroenterology Juanis Levi 2450 [place] [address] Luis Fernando Miles MD 516 [facility] [place], [place] [address] documented as of this encounter Visit Diagnoses Not on filedocumented in this encounter Additional Health Concerns Assessment Noted Time PHQ-9 Depression Total Score: 6 12/27/2019 9:38 AM ENGAGEMENT LEAD documented as of this encounter Care Teams Sugar Cane Grower Relationship Specialty Start Date End Date Clinic, [facility] PCP - General 01/20/18 06/28/[address] [place] [address] Stephani Pina APRN STOCK CONTROL CLERK Assigned PCP 01/30/20 12/30/[address] [place] [address] documented as of this encounter
--- OUTSIDE RECORDS SUMMARY | 2021-12-13 12:33 | XMS_ITS | Encounter Summary ---
:1980 Author Organization [place] Address [address] [place] [address] Care Team Providers Name Role Phone Clinic, [facility] Primary Care Provide r Stephani Pina Kim YANES COMMERCIAL ANALYST Unavailable [phone] Encounter Details Date Type Department Care [...] Date Recorded Female 01/14/2020 10:57 AM RUG CUTTER COVID-19 Exposure Response Date Recorded In the last month, have you been in contact with No / Unsure 01/31/2020 9:14 AM RUG CUTTER someone who was confirmed or suspected to have Coronavirus / COVID-19? documented as of this encounter Plan of Treatment Upcoming Encounters Date Type Specialty Care Team Description 12/20/2021 Office Visit Wound Care Luis Camara DPM 9[address] [place] [address] (Reinaldo molina) 01/21/2022 PRE VISIT Gastroenterology Landon Warren, *-*WANDAIN G RECORDS*-* MD Luis Fernando 516 [facility] [address] [place] [address] (Wo rk) 01/21/2022 Office Visit Gastroenterology Juanis Levi [address] [facility] [place] [address] Luis Fernando Miles MD 516 [facility] [place], [place] [address] documented as of this encounter Visit Diagnoses Not on filedocumented in this encounter Additional Health Concerns Assessment Noted Time PHQ-9 Depression Total Score: 6 12/27/2019 9:38 AM RUG CUTTER documented as of this encounter Care Teams State Manager Relationship Specialty Start Date End Date Clinic, [facility] PCP - General 01/20/18 06/28/[address] [place] [address] [phone] Stephani Pina APRN COMMERCIAL ANALYST Assigned PCP 01/30/20 12/30/[address] [place] [address] 700 [place], [place] [phone] documented as of this encounter
--- OUTSIDE RECORDS SUMMARY | 2021-12-13 12:33 | XMS_ITS | Encounter Summary ---
:1980 Author Organization [place] Address [address] [place] [address] Care Team Providers Name Role Phone Clinic, [facility] Primary Care Provide r Guerita Haasdia Sanju MANAGER OF MANUFACTURING CYTOPATHOLOGIST Unavailable [phone] Reason for Visit Reason Onset Date Comments Medication Request 02/12/2021 subutex Encounter Details Date Type Department Care Team Description 02/12/2021 Telephone [facility] Alfredo, [facility] ication Request Clinic Ashly VÁSQUEZ (subutex) [address] [place] [address] [place] [address] (Wo rk) Social History Tobacco Use Types Packs/Day Years Used Date Smoking Tobacco: Every Day Cigarettes 0.3 10 Smokeless Tobacco: Never Comments: 5-8 cigarettes a day Alcohol Use Standard Drinks/Week Comments Not Currently 0 (1 standard drink = 0.6 oz pure alcoho l) sober since 08/2020 Sex Assigned at Date Recorded Female 01/14/2020 10:57 AM DIE CUTTER APPRENTICE COVID-19 Exposure Response Date Recorded In the last month, have you been in contact with No / Unsure 01/15/2021 1:15 PM DIE CUTTER APPRENTICE someone who was confirmed or suspected to have Coronavirus / COVID-19? documented as of this encounter Miscellaneous Notes Telephone Encounter - Juanjose Parham - 02/12/2021 12:44 PM CST Reason for Call: Medication Request due to: missed appointment Name of the pharmacy and phone number for the current request: [id number] - [place] -[address] Request for bridge of: Subutex [...] Phone number patient can be reached at: [phone] Best Time: Any CUTTER APPRENTICE documented in this encounter Plan of Treatment Upcoming Encounters Date Type Specialty Care Team Description 12/20/2021 Office Visit Wound Care Luis Camara, [place] [address] [place], [place] [address]05 (Wo rk) 01/21/2022 PRE VISIT Gastroenterology Landon Warren, *-*WANDAIN G RECORDS*-* MD Luis Fernando [address] [place] [address] [phone] (Wo rk) 01/21/2022 Office Visit Gastroenterology Juanis Levi [address] [place] [phone] Luis Fernando Miles MD [address] [place] [address]3535 documented as of this encounter Visit Diagnoses Diagnosis Opioid use disorder, severe, in sustaine d remission, on maintenance therapy (H) documented in this encounter Additional Health Concerns Assessment Noted Time PHQ-9 Depression Total Score: 2 12/15/2020 1:07 PM CDT documented as of this encounter Care Teams Associate Store Manager Relationship Specialty Start Date End Date Clinic, [facility] PCP - General 01/20/18 06/28/[address] [place] [address] Tatyana Haas APRN CYTOPATHOLOGIST Assigned PCP 12/31/20 02/24/21 [place] [facility] [address] [facility] [address] [place] [address] documented as of this encounter
--- OUTSIDE RECORDS SUMMARY | 2021-12-13 12:33 | XMS_ITS | Encounter Summary ---
:1980 Author Organization [place] Address [address] [place] [address] Care Team Providers Name Role Phone Clinic, [facility] Primary Care Provide r Stephani Pina Kim LEON DIRECT CHILL CASTER Unavailable [phone] Encounter Details Date Type Department Care [...] Recorded Female 01/14/2020 10:57 AM HIGH SCHOOL PHYSICAL EDUCATION TEACHER COVID-19 Exposure Response Date Recorded In the last month, have you been in contact with No / Unsure 03/05/2021 9:18 AM HIGH SCHOOL PHYSICAL EDUCATION TEACHER someone who was confirmed or suspected to have Coronavirus / COVID-19? documented as of this encounter Plan of Treatment Upcoming Encounters Date Type Specialty Care Team Description 12/20/2021 Office Visit Wound Care Luis Camara DPM 909 [place] [address] (Reinaldo molina) 01/21/2022 PRE VISIT Gastroenterology Landon Warren, *-*WANDAIN G RECORDS*-* MD Luis Fernando [address] [address] (Wo rk) 01/21/2022 Office Visit Gastroenterology Juanis Levi 24[address] [facility] [place] [address] Luis Fernando Miles MD 516 [facility] [address] [place] [address] documented as of this encounter Visit Diagnoses Not on filedocumented in this encounter Additional Health Concerns Assessment Noted Time PHQ-9 Depression Total Score: 2 12/15/2020 1:07 PM CDT documented as of this encounter Care Teams Technical Maintenance Specialist Relationship Specialty Start Date End Date Clinic, [facility] PCP - General 01/20/18 06/28/[address] [place] [address] [phone] Stephani Pina APRN DIRECT CHILL CASTER Assigned PCP 02/25/21 [address] [facility] 700 [place] [address] documented as of this encounter
--- OUTSIDE RECORDS SUMMARY | 2021-12-13 12:33 | XMS_ITS | Encounter Summary ---
:1980 Author Organization [place] Address [address] [place] [address] Care Team Providers Name Role Phone Clinic, [facility] Primary Care Provide r Guerita Haasherb Bills CIRCLE BEVELER SLOT MACHINE FLOOR PERSON Unavailable [phone] Encounter Details Date Type Department Care [...] Date Recorded Female 01/14/2020 10:57 AM PANTS PRESSER COVID-19 Exposure Response Date Recorded In the last month, have you been in contact with No / Unsure 12/31/2019 2:41 PM PANTS PRESSER someone who was confirmed or suspected to have Coronavirus / COVID-19? documented as of this encounter Plan of Treatment Upcoming Encounters Date Type Specialty Care Team Description 12/20/2021 Office Visit Wound Care Luis Camara DPM 909 [place] [address] (Reinaldo molina) 01/21/2022 PRE VISIT Gastroenterology Landon Warren, *-*WANDAIN G RECORDS*-* MD Luis Fernando 516 [facility] [address] [place] [address] (Wo rk) 01/21/2022 Office Visit Gastroenterology Juanis Levi 2450 [place] [address] Luis Fernando Miles MD 516 [facility] 2[address] [place], [place] [address] documented as of this encounter Visit Diagnoses Not on filedocumented in this encounter Additional Health Concerns Assessment Noted Time PHQ-9 Depression Total Score: 6 12/27/2019 9:38 AM PANTS PRESSER documented as of this encounter Care Teams Senior Wind Turbine Technician Relationship Specialty Start Date End Date Clinic, [facility] PCP - General 01/20/18 06/28/[address] [place] [address] [phone] Tatyana Haas APRN SLOT MACHINE FLOOR PERSON Assigned PCP 08/02/18 01/29/20 [facility] [address] [facility] [address] [place] [address] documented as of this encounter
--- OUTSIDE RECORDS SUMMARY | 2021-12-13 12:33 | XMS_ITS | Encounter Summary ---
:1980 Author Organization [place] Address [address] [facility] [place] [address] Care Team Providers Name Role Phone Clinic, [facility] Primary Care Provide r Stephani Pina APRN COMPUTERIZED TABLE CUTTER Unavailable [phone] Juanis Levi Primary Care Provider Elsa Yeh RN Unavailable Unavailable Rogelio Treadwell MD Unavailable [phone] Luis Camara DPM Unavailable [phone] Camryn Christina MD Unavailable Sintia Lange PA-C Unavailable Luis Fernando Miles MD Unavailable [phone] Reason for Visit Reason Comments Medication Refill Encounter Details Date Type Department Care Team Description 02/27/2021 Refill [facility] Reymundo Sifuentes MD Medication Refill [place] [address] [place] [address] [place] [phone] Social History Tobacco Use Types Packs/Day Years Used Date Smoking Tobacco: Every Day Cigarettes 0.3 10 Smokeless Tobacco: Never Comments: 5-8 cigarettes a day Alcohol Use Standard Drinks/Week Comments Not Currently 0 (1 standard drink = 0.6 oz pure alcoho l) sober since 08/2020 Sex Assigned at Date Recorded Female 01/14/2020 10:57 AM BLIND HANGER documented as of this encounter Miscellaneous Notes [...] Solano RN on 02/27/2021 at 4:18 PM D HANGER documented in this encounter Plan of Treatment Upcoming Encounters Date Type Specialty Care Team Description 12/20/2021 Office Visit Wound Care Luis Camara, DPM [address] [place], [place] [phone] (Reinaldo molina) 01/21/2022 PRE VISIT Gastroenterology Landon Warren, *-*WANDAIN G RECORDS*-* MD Luis Fernando [address] [place] [address] (Reinaldo molina) 01/21/2022 Office Visit Gastroenterology Juanis Levi [address] [place] [address] Luis Fernando Miles MD [address] [place] [address] 083185 documented as of this encounter Visit Diagnoses Diagnosis Opioid use disorder, severe, in sustaine d remission, on maintenance therapy (H) documented in this encounter Additional Health Concerns Infection Onset Date Last Indicated Resolved Time MRSAComment: Added from external infection. 11/07/201406/18 Assessment Noted Time PHQ-9 Depression Total Score: 2 12/15/2020 1:07 PM CDT documented as of this encounter Care Teams Senior Solutions Engineer Relationship Specialty Start Date End Date Clinic, [facility] PCP - General 01/20/[address] [phone] Juanis Levi PCP - General Addiction Medicine 06/29/21 [address] [place] [address] Stephani Pina, Assigned PCP 02/25/21 CLASSROOM TECHNOLOGY TECHNICIAN COMPUTERIZED TABLE CUTTER [address] [place], [place] 5230[address] Elsa Yeh, Registered Nurse Infectious Diseases 07/25/21 RN Rogelio Treadwell Assigned Musculoskeletal 08/04/21 MD August Provider [address] [place], [place] 152825 Luis Camara MD Podiatry 08/16/21 CALVIN Burnett [address] [place], [place] [phone] Camryn Christina Assigned Surgical 09/01/21 09/07/21 MD Lexie Provider 420 [facility] 195 [place], [place] [address] Sintia Lange PA-C Assigned Surgical 09/08/[address] 4[address] Provider FLOOR [place], [place] 65[address] Landon Warren MD Gastroenterology 11/21/21 MD Luis Fernando [address] [place] [address] 2[address] [place], [place] [address]45 documented as of this encounter
--- OUTSIDE RECORDS SUMMARY | 2021-12-13 12:33 | XMS_ITS | Encounter Summary ---
:1980 Author Organization [place] Address [address] [place] [address] Care Team Providers Name Role Phone Clinic, [facility] Primary Care Provide r Guerita Haasherb Bills CORNCOB PIPE MANUFACTURING SUPERVISOR CAFETERIA TABLE ATTENDANT Unavailable [phone] Encounter Details Date Type Department Care [...] Date Recorded Female 01/14/2020 10:57 AM SHOP REPAIRER COVID-19 Exposure Response Date Recorded In the last month, have you been in contact with No / Unsure 01/15/2021 1:15 PM SHOP REPAIRER someone who was confirmed or suspected to have Coronavirus / COVID-19? documented as of this encounter Plan of Treatment Upcoming Encounters Date Type Specialty Care Team Description 12/20/2021 Office Visit Wound Care Luis Camara DPM 909 [place] [address] (Reinaldo molina) 01/21/2022 PRE VISIT Gastroenterology Landon Warren, *-*WANDAIN G RECORDS*-* MD Luis Fernando [address] [address] (Wo rk) 01/21/2022 Office Visit Gastroenterology Juanis Levi [address] [place] [address] Luis Fernando Miles MD 516 [facility] 2A [place], [place] [address] documented as of this encounter Visit Diagnoses Not on filedocumented in this encounter Additional Health Concerns Assessment Noted Time PHQ-9 Depression Total Score: 2 12/15/2020 1:07 PM CDT documented as of this encounter Care Teams Paid Intern Relationship Specialty Start Date End Date Clinic, [facility] PCP - General 01/20/18 06/28/[address] [place] [address] [phone] Tatyana Haas APRN CAFETERIA TABLE ATTENDANT Assigned PCP 12/31/20 02/24/21 [facility] [address] [facility] [address] [place], [place] [address] documented as of this encounter
--- OUTSIDE RECORDS SUMMARY | 2021-12-13 12:33 | XMS_ITS | Encounter Summary ---
:1980 Author Organization [place] Address [address] [facility] [place] [address] Care Team Providers Name Role Phone Clinic, [facility] Primary Care Provide r Guerita Haasherb Bills DENTURE MODEL MAKER MANAGER DRILLING Unavailable [phone] Encounter Details Date Type Department Care Team Description 02/12/2021 Office Visit [facility] Edgar Alfredoplic ated opioid Clinic Ashly Gauthier MD dependence (H) (Primary [address]) [address] [place] [phone] Social History Tobacco Use Types Packs/Day Years Used Date Smoking Tobacco: Every Day Cigarettes 0.3 10 Smokeless Tobacco: Never Comments: 5-8 cigarettes a day Alcohol Use Standard Drinks/Week Comments Not Currently 0 (1 standard drink = 0.6 oz pure alcoho l) sober since 08/2020 Sex Assigned at Date Recorded Female 01/14/2020 10:57 AM FORMING PROCESS WORKER COVID-19 Exposure Response Date Recorded In the last month, have you been in contact with No / Unsure 01/15/2021 1:15 PM FORMING PROCESS WORKER someone who was confirmed or suspected to have Coronavirus / COVID-19? documented as of this encounter Progress Notes Edgar Alfredo MD - 02/12/2021 10:40 AM CST NO SHOW ING PROCESS WORKER documented in this encounter Plan of Treatment Upcoming Encounters Date Type Specialty Care Team Description 12/20/2021 Office Visit Wound Care Hoa Luis Lex, DPM [address] [place], [place] [phone] (Wo rk) 01/21/2022 PRE VISIT Gastroenterology Landon Warren, *-*INCOMIN G RECORDS*-* MD Luis Fernando [address] [place] [address] [id number] [id number] (Wo rk) 01/21/2022 Office Visit Gastroenterology Juanis Levi [address] [place] [phone] Luis Fernando Miles MD [address] [place] [address] documented as of this encounter Visit Diagnoses Diagnosis Uncomplicated opioid dependence (H) - Pr imary Opioid type dependence, unspecified documented in this encounter Additional Health Concerns Assessment Noted Time PHQ-9 Depression Total Score: 2 12/15/2020 1:07 PM CDT documented as of this encounter Care Teams Floor Broker Relationship Specialty Start Date End Date Clinic, [facility] PCP - General 01/20/18 06/28/[address] [place] [address] Tatyana Haas, DENTURE MODEL MAKER MANAGER DRILLING Assigned PCP 12/31/20 02/24/21 [facility] [address] [facility] [address] [place] [address] documented as of this encounter
--- OUTSIDE RECORDS SUMMARY | 2021-12-13 12:33 | XMS_ITS | Encounter Summary ---
:1980 Author Organization [place] Address [address] [place] [address] Care Team Providers Name Role Phone Clinic, [facility] Primary Care Provide r Stephani Pina Kim LEON SAXOPHONE ASSEMBLER Unavailable [phone] Encounter Details Date Type Department Care [...] at Date Recorded Female 01/14/2020 10:57 AM STEEL DIE ENGRAVER COVID-19 Exposure Response Date Recorded In the last month, have you been in contact with No / Unsure 12/08/2020 10:54 AM CDT someone who was confirmed or suspected to have Coronavirus / COVID-19? documented as of this encounter Plan of Treatment Upcoming Encounters Date Type Specialty Care Team Description 12/20/2021 Office Visit Wound Care Luis Camara DPM [address] [place] [address] (Reinaldo molina) 01/21/2022 PRE VISIT Gastroenterology Landon Warren, *-*WANDAIN G RECORDS*-* MD Luis Fernando [address] [address] (Wo rk) 01/21/2022 Office Visit Gastroenterology Juanis Levi [address] [place] [address] Luis Fernando Miles MD [address] [facility] [address] [place], [place] [address] documented as of this encounter Visit Diagnoses Not on filedocumented in this encounter Additional Health Concerns Assessment Noted Time PHQ-9 Depression Total Score: 6 12/27/2019 9:38 AM STEEL DIE ENGRAVER documented as of this encounter Care Teams Program Evaluator Relationship Specialty Start Date End Date Clinic, [facility] PCP - General 01/20/18 06/28/[address] [place] [address] Stephani Pina APRN SAXOPHONE ASSEMBLER Assigned PCP 01/30/20 12/30/[address] [place] [address] documented as of this encounter
--- OUTSIDE RECORDS SUMMARY | 2021-12-13 12:33 | XMS_ITS | Encounter Summary ---
:1980 Author Organization [place] Address [address] [place] [address] Care Team Providers Name Role Phone Clinic, [facility] Primary Care Provide r Guerita Haasdia Sanju MOLD SHEET CLEANER STORES DESPATCH HAND Unavailable [phone] Encounter Details Date Type Department Care [...] at Date Recorded Female 01/14/2020 10:57 AM SHOE SALESMAN COVID-19 Exposure Response Date Recorded In the last month, have you been in contact with No / Unsure 12/27/2019 7:20 AM SHOE SALESMAN someone who was confirmed or suspected to have Coronavirus / COVID-19? documented as of this encounter Plan of Treatment Upcoming Encounters Date Type Specialty Care Team Description 12/20/2021 Office Visit Wound Care Luis Camara DPM [address] [place] [address] (Wo rk) 01/21/2022 PRE VISIT Gastroenterology Landon Warren, *-*WANDAIN G RECORDS*-* MD Luis Fernando 516 [facility] [address] [place] [address] (Reinaldo molina) 01/21/2022 Office Visit Gastroenterology Juanis Levi [address] [place] [address] Luis Fernando Miles MD 516 [facility] [place], [place] [address] documented as of this encounter Visit Diagnoses Not on filedocumented in this encounter Additional Health Concerns Assessment Noted Time PHQ-9 Depression Total Score: 6 12/27/2019 9:38 AM SHOE SALESMAN documented as of this encounter Care Teams Passenger Train Braker Relationship Specialty Start Date End Date Clinic, [facility] PCP - General 01/20/18 06/28/[address] [place] [address] [id number] Tatyana Haas APRN STORES DESPATCH HAND Assigned PCP 08/02/18 01/29/20 [facility] [address] [facility] [address] [place] [address] documented as of this encounter
--- OUTSIDE RECORDS SUMMARY | 2021-12-13 12:33 | XMS_ITS | Encounter Summary ---
:1980 Author Organization [place] Address [facility] [place] [address] Care Team Providers Name Role Phone Clinic, [facility] Primary Care Provide r Tatyana Haas MARKETING SUPPORT MANAGER BIODIESEL PRODUCT MANAGER Unavailable [phone] Stephani Pina MARKETING SUPPORT MANAGER BIODIESEL PRODUCT MANAGER Unavailable [phone] Tatyana Haas MARKETING SUPPORT MANAGER BIODIESEL PRODUCT MANAGER Unavailable [phone] Stephani Pina MARKETING SUPPORT MANAGER BIODIESEL PRODUCT MANAGER Unavailable [phone] Juanis Levi Primary Care Provider Elsa Yeh RN Unavailable Unavailable Rogelio Treadwell MD Unavailable [phone] Luis Camara DPM Unavailable [phone] Camryn Christina MD Unavailable Sintia Lange PA-C Unavailable Luis Fernando Miles MD Unavailable [phone] Reason for Visit Reason Onset Date Comments MH/CD Inpatient 01/11/2020 Encounter Details Date Type Department Care Team Description 01/11/2020 Telephone [facility] Generic, Behavioral MH/ CD Inpatient Behavioral Health In abigail Rivera MD [address] [place] [address] Social History Tobacco Use Types Packs/Day Years Used Date Smoking Tobacco: Every Day Cigarettes 0.3 10 Smokeless Tobacco: Never Comments: 5-8 cigarettes a day Alcohol Use Standard Drinks/Week Comments Yes 0 (1 standard drink = 0.6 oz pure alcoho l) drinking a pint of vodka daily Sex Assigned at Date Recorded Female 01/14/2020 10:57 AM BLOCK OUT 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 COVID-19 Exposure Response Date Recorded In the last month, have you been in contact with No / Unsure 01/11/2020 8:00 PM BLOCK OUT 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 someone who was confirmed or suspected to have Coronavirus / COVID-19? documented as of this encounter Miscellaneous Notes Telephone Encounter - Rocio Messer - 01/11/2020 10:22 PM CST S: Pt is a 39 yr old fem in [place] ED for detox from alcohol report by [...] and ready for behavioral bed placement: Yes K OUT 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 documented in this encounter Plan of Treatment Upcoming Encounters Date Type Specialty Care Team Description 12/20/2021 Office Visit Wound Care Luis Camara DPM [address] [place] [address] (Wo rk) 01/21/2022 PRE VISIT Gastroenterology Landon Warren, *-*HEATHER Barriga RECORDS*-* MD Luis Fernando 516 [facility] 2A [place] [address] (Wo rk) 01/21/2022 Office Visit Gastroenterology Juanis Levi [address] [place] [address] Luis Fernando Miles MD 516 [facility] [address] [place] [address] documented as of this encounter Visit Diagnoses Not on filedocumented in this encounter Additional Health Concerns Infection Onset Date Last Indicated Resolved Time MRSAComment: Added from external infection. 11/07/201406/18 Assessment Noted Time PHQ-9 Depression Total Score: 6 12/27/2019 9:38 AM BLOCK OUT 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 documented as of this encounter Care Teams Wardrobe Coordinator Relationship Specialty Start Date End Date Clinic, [facility] PCP - General 01/20/[address] [phone] Juanis Levi PCP - General Addiction Medicine 06/29/21 [address] [place] [phone] Tatyana Haas, Assigned PCP 08/02/18 01/29/20 MARKETING SUPPORT MANAGER BIODIESEL PRODUCT MANAGER [facility] [address] [facility] [address] [place], [place] [address] Stephani Pina, Assigned PCP 01/30/20 12/30/20 MARKETING SUPPORT MANAGER BIODIESEL PRODUCT MANAGER [address] [place], [place] [address] Tatyana Haas, Assigned PCP 12/31/20 02/24/21 MARKETING SUPPORT MANAGER BIODIESEL PRODUCT MANAGER [facility] [address] [facility] [address] [place], [place] [address] Stephani Pina, Assigned PCP 02/25/21 MARKETING SUPPORT MANAGER BIODIESEL PRODUCT MANAGER [address] [place] [address] Elsa Yeh, Registered Nurse Infectious Diseases 07/25/21 Rogelio Wilson Assigned Musculoskeletal 08/04/21 MD August Provider [address] [place], [place] [phone] Luis Camara MD Podiatry 08/16/21 CALVIN Burnett [address] [place], [place] [address] Camryn Christina Assigned Surgical 09/01/21 09/07/21 MD Lexie Provider [address] [facility] 195 [place] [address] Sintia Lange PA-C Assigned Surgical 09/08/21 9[address] [facility] 4TH [place] [address] Landon Warren MD Gastroenterology 11/21/21 MD Luis Fernando [address] [facility] [address] [place] [address] documented as of this encounter
--- OUTSIDE RECORDS SUMMARY | 2021-12-13 12:34 | XMS_ITS | Encounter Summary ---
:1980 Author Organization [place] Address [address] [facility] [place] [address] Care Team Providers Name Role Phone Clinic, [facility] Primary Care Provide r Tatyana Haas Sanuj BULB BRANDER GAS METER INSTALLER HELPER Unavailable [phone] Encounter Details Date Type Department Care [...] at Date Recorded Female 01/14/2020 10:57 AM ONLINE TRADER documented as of this encounter Plan of Treatment Upcoming Encounters Date Type Specialty Care Team Description 12/20/2021 Office Visit Wound Care Luis Camara DPM 909 [place] [address] (Wo rk) 01/21/2022 PRE VISIT Gastroenterology Landon Warren, *-*HEATHER Barriga RECORDS*-* MD Luis Fernando 516 [facility] 2[address] [place], [place] [address] (Wo rk) 01/21/2022 Office Visit Gastroenterology Juanis Levi 24[address] [place] [address] Luis Fernando Miles MD 6 [facility] [address] [place], [place] [address] documented as of this encounter Visit Diagnoses Not on filedocumented in this encounter Additional Health Concerns Assessment Noted Time PHQ-9 Depression Total Score: 10 07/08/2018 1:27 PM CD T documented as of this encounter Care Teams Kiln Pusher Relationship Specialty Start Date End Date Clinic, [facility] PCP - General 01/20/18 06/28/[address] [place] [address] Tatyana Haas APRN GAS METER INSTALLER HELPER Assigned PCP 08/02/18 01/29/20 [facility] [address] [facility] [address] [place], [place] [address] documented as of this encounter
--- OUTSIDE RECORDS SUMMARY | 2021-12-13 12:34 | XMS_ITS | Encounter Summary ---
:1980 Author Organization [place] Address [address] [place] [address] Care Team Providers Name Role Phone Clinic, [facility] Primary Care Provide r Tatyana Haas Sanju CLERK OF SCALES EXTENSION ASSOCIATE Unavailable [phone] Reason for Visit Reason Onset Date Comments MH/CD Inpatient 04/01/2019 Encounter Details Date Type Department Care Team Description 04/01/2019 Telephone [facility] Generic, Behavioral MH/ CD Inpatient Behavioral Health In abigail Rivera MD [address] [place] [address] Social History Tobacco Use Types Packs/Day Years Used Date Smoking Tobacco: Every Day Cigarettes 0.3 10 Smokeless Tobacco: Never Comments: 5-8 cigarettes a day Alcohol Use Standard Drinks/Week Comments Not Currently 0 (1 standard drink = 0.6 oz pure alcoho l) sober 16 days Sex Assigned at Date Recorded Female 01/14/2020 10:57 AM EXECUTIVE DIRECTOR GLOBAL BRAND MARKETING documented as of this encounter Miscellaneous Notes Telephone Encounter - Claudette Francis - 04/01/2019 5:26 PM CST S: [place] ED seeking detox placement for a 38yo [...] and ready for behavioral bed placement: Yes UTIVE DIRECTOR GLOBAL BRAND MARKETING documented in this encounter Plan of Treatment Upcoming Encounters Date Type Specialty Care Team Description 12/20/2021 Office Visit Wound Care Luis Camara, [place] 9[address] [place] [address] (Wo rk) 01/21/2022 PRE VISIT Gastroenterology Landon Warren, *-*HEATHER G RECORDS*-* MD Luis Fernando [address] [place] [phone] (Wo rk) 01/21/2022 Office Visit Gastroenterology Juanis Levi [address] [place] [address] Luis Fernando Miles MD [address] [place] [address] documented as of this encounter Visit Diagnoses Not on filedocumented in this encounter Additional Health Concerns Assessment Noted Time PHQ-9 Depression Total Score: 10 07/08/2018 1:27 PM CD T documented as of this encounter Care Teams Boom Operator Relationship Specialty Start Date End Date Clinic, [facility] PCP - General 01/20/18 06/28/[address] [place] [address] Tatyana Haas APRN EXTENSION ASSOCIATE Assigned PCP 08/02/18 01/29/20 [facility] [address] [facility] [address] [place], [place] [address] (work) documented as of this encounter
--- OUTSIDE RECORDS SUMMARY | 2021-12-13 12:34 | XMS_ITS | Encounter Summary ---
:1980 Author Organization [place] Address [facility] [place] [address] Care Team Providers Name Role Phone Clinic, [facility] Primary Care Provide r Tatyana Haas Sanju HAM DOCTOR CONSTRUCTION PLUMBER Unavailable [phone] Reason for Visit Reason Comments Alcohol Intoxication Encounter Details Date Type Department Care Team Description 12/18/2018 Emergency [facility] Odette Frank MD [facility] [address] [place] [address] Alcoholic intoxication [facility] [address] [place] [address] without complication Dept (H) [address] [place] [address] Social History Tobacco Use Types Packs/Day Years Used Date Smoking Tobacco: Every Day Cigarettes 0.3 10 Smokeless Tobacco: Never Comments: 5-8 cigarettes a day Alcohol Use Standard Drinks/Week Comments Not Currently 0 (1 standard drink = 0.6 oz pure alcoho l) sober 16 days Sex Assigned at Date Recorded Female 01/14/2020 10:57 AM DOCUMENT MANAGEMENT SPECIALIST documented as of this encounter Last [...] be sent through Care Everywhere. Alcohol Intoxication (Scottish)documented in this encounter Medications at Time of [...] Depression Psychotic disorder Thyroid disease Cerebrovascular disease PR Asthma Social History: Presents alone. Current ever [...] provider's statements to me. Otto Peterson 12/18/2018 [facility] EM[facility] Eliud Fernandez MD 12/21/18 1545 MENT MANAGEMENT SPECIALIST documented in this encounter Plan of Treatment Upcoming Encounters Date Type Specialty Care Team Description 12/20/2021 Office Visit Wound Care Talha Luis Burnett, DPM 9[address] [place], [place] [address] (Wo rk) 01/21/2022 PRE VISIT Gastroenterology Landon Warren, *-*WANDAIN G RECORDS*-* MD Luis Fernando [address] [address] (Wo rk) 01/21/2022 Office Visit Gastroenterology Juanis Levi 2450 [place] [phone] Luis Fernando Miles MD [address] 8[address] documented as of this encounter Procedures Procedure [...] Ethanol g/dL 0.35 (HH) <0.01 g/dL 12/18/2018 [place] 3:59 PM CDT [facility] Comment: Critical Value called to and read back Branden BOONE (ERA) ON 12.18.2018 AT 1556, SP Specimen Anatomical Collection Method Collection Time Receive d Time (Source) Location / / Volume Laterality Blood specimen 12/18/2018 2:48 PM 019 3:24 (specimen) CDT PM CDT Christopher Frank MD LAB - BLOOD ORDERABLES Performing Organization Address City/State/ZIP Code Phon e Rk M [facility] [address] [place], [place] [address] [facility] [address] [place], [place] [address] [facility] [phone] (ABNORMAL) Comprehensive metabolic panel (12/18/2018 2:48 PM CDT) athologist Signature Sodium 141 133 - 144 12/18/2018 [place] mmol/L 3:44 PM [facility] Potassium 3.5 3.4 - 5.3 12/18/2018 [place] mmol/L 3:44 PM [facility] Chloride 105 94 - 109 12/18/2018 [place] mmol/L 3:44 PM [facility] Carbon Dioxide 28 20 - 32 12/18/2018 [place] mmol/L 3:51 PM [facility] Anion Gap 8 3 - 14 12/18/2018 [place] mmol/L 3:51 PM [facility] Glucose 124 (H) 70 - 99 12/18/2018 [place] mg/dL 3:51 PM [facility] Urea Nitrogen 4 (L) 7 - 30 12/18/2018 [place] mg/dL 3:51 PM [facility] Creatinine 0.59 0.52 - 12/18/2018 [place] 1.04 mg/dL 3:51 PM [facility] GFR Estimate >90 >60 12/18/2018 [place] mL/min/{1. 3:51 PM [facility] 73_m2} HOSPITAL Comment: Non GFR Calc Starting 02/03/2018, serum creatinine ba sed estimated GFR (eGFR) will be calculated using the Chronic Kidney Dise ase Epidemiology Collaboration (CKD-EPI) equation. GFR Estimate If >90 >60 mL/min/{1.73_m2} 12/18/2018 3: 51 PM [facility] Comment: GFR Calc Starting 02/03/2018, serum creatinine ba sed estimated GFR (eGFR) will be calculated using the Chronic Kidney Dise ase Epidemiology Collaboration (CKD-EPI) equation. Calcium 8.5 8.5 - 10.1 12/18/2018 3:51 PM [facility] mg/dL [facility] Bilirubin Total 0.7 0.2 - 1.3 mg/dL 12/18/2018 3:53 PM [facility] Albumin 3.9 3.4 - 5.0 g/dL 12/18/2018 3:53 PM [facility] Protein Total 8.3 6.8 - 8.8 g/dL 12/18/2018 3:53 PM [facility] Alkaline Phosphatase 151 (H) 40 - 150 U/L 12/18/2018 3:53 PM [facility] ALT 172 (H) 0 - 50 U/L 12/18/2018 3:53 PM [facility] AST 228 (H) 0 - 45 U/L 12/18/2018 3:53 PM [facility] Specimen Anatomical Collection Method Collection Time Receive d Time (Source) Location / / Volume Laterality Blood specimen 12/18/2018 2:48 PM 019 3:24 (specimen) CDT CDT Christopher Frank MD LAB - BLOOD ORDERABLES Performing Organization Address City/State/ZIP Code Phon e Number [place] [address] [address] [place] [address] [facility] [address] [phone] (ABNORMAL) CBC with platelets differential (12/18/2018 2:48 PM CDT) [facility] Method Time Signature WBC 3.2 (L) 4.0 - 12/18/2018 [facility] 11.0 3:28 PM [facility] 10e9/L [facility] RBC Count 4.32 3.8 - 5.2 12/18/2018 [facility] 10e12/L 3:28 PM [facility] Hemoglobin 14.3 11.7 - 12/18/2018 [facility] 15.7 g/dL 3:28 PM [facility] Hematocrit 41.9 35.0 - 12/18/2018 [facility] 47.0 % 3:28 PM [facility] MCV 97 78 - 100 12/18/2018 [facility] fl 3:28 PM [facility] MCH 33.1 (H) 26.5 - 12/18/2018 [facility] 33.0 pg 3:28 PM [facility] MCHC 34.1 31.5 - 12/18/2018 [facility] 36.5 g/dL 3:28 PM [facility] RDW 13.2 10.0 - 12/18/2018 [facility] 15.0 % 3:28 PM [facility] Platelet Count 97 (L) 150 - 450 12/18/2018 [facility] 10e9/L 3:28 PM [facility] Diff Method Automated 12/18/2018 [facility] Method 3:28 PM [facility] % Neutrophils 36.5 % 12/18/2018 [facility] 3:28 PM [facility] % Lymphocytes 47.0 % 12/18/2018 [facility] 3:28 PM [facility] % Monocytes 10.5 % 12/18/2018 [facility] 3:28 PM [facility] % Eosinophils 3.8 % 12/18/2018 [facility] 3:28 PM [facility] % Basophils 1.6 % 12/18/2018 [facility] 3:28 PM [facility] % Immature 0.6 % 12/18/2018 [facility] Granulocytes 3:28 PM [facility] Nucleated RBCs 0 0 /100 12/18/2018 [facility] 3:28 PM [facility] Absolute 1.2 (L) 1.6 - 8.3 12/18/2018 [facility] Neutrophil 10e9/L 3:28 PM [facility] Absolute 1.5 0.8 - 5.3 12/18/2018 [facility] Lymphocytes 10e9/L 3:28 PM [facility] Absolute 0.3 0.0 - 1.3 12/18/2018 [facility] Monocytes 10e9/L 3:28 PM [facility] Absolute 0.1 0.0 - 0.7 12/18/2018 [facility] Eosinophils 10e9/L 3:28 PM [facility] Absolute 0.1 0.0 - 0.2 12/18/2018 [facility] Basophils 10e9/L 3:28 PM [facility] Abs Immature 0.0 0 - 0.4 12/18/2018 [facility] Granulocytes 10e9/L 3:28 PM CDT [facility] Absolute 0.0 12/18/2018 [place] Nucleated RBC 3:28 PM CDT [facility] Specimen Anatomical Collection Method Collection Time Receive d Time (Source) Location / / Volume Laterality Blood specimen 12/18/2018 2:48 PM 019 3:24 (specimen) CDT PM CDT Christopher Frank MD LAB - BLOOD ORDERABLES Performing Organization Address City/State/ZIP Code Phon e Number [place] [address] [address] [place], [place] [address] [facility] [address] [phone] documented in this encounter Visit Diagnoses Diagnosis [...] documented as of this encounter Care Teams Marketing Business Analyst Relationship Specialty Start Date End Date Clinic, [facility] PCP - General 01/20/18 06/28/21 [facility] [place] [address] Tatyana Haas APRN CONSTRUCTION PLUMBER Assigned PCP 08/02/18 01/29/20 [facility] [address] [facility] [address] [place] [address] documented as of this encounter
--- OUTSIDE RECORDS SUMMARY | 2021-12-13 12:34 | XMS_ITS | Encounter Summary ---
:1980 Author Organization [facility] Address [facility] [place] [address] Care Team Providers Name Role Phone Clinic, [facility] Primary Care Provide r Tatyana Haas Sanju AUTOCAD DRAFTSMAN DIESEL TECHNICIAN Unavailable [phone] Reason for Visit Reason Comments Alcohol Problem Encounter Details Date Type Department Care Team Description 01/20/2019 - [facility] Eliud Fernandez lcohol abuse, continuous; 01/21/2019 [facility] Emergency MD Solomon Nicotine dependence; Dept EMERG[facility] PHYSIC[facility]ANS Alcohol dependence with unsp ecified alcohol-induced disorder (H); [address] JENIFFER Nicotine dependence, uncomplicated, unsp ecified nicotine product type [place], [place] [address] [address] [place] [address] [place], [place] [address] (Wo rk) Social History Tobacco Use Types Packs/Day Years Used Date Smoking Tobacco: Every Day Cigarettes 0.3 10 Smokeless Tobacco: Never Comments: 5-8 cigarettes a day Alcohol Use Standard Drinks/Week Comments Not Currently 0 (1 standard drink = 0.6 oz pure alcoho l) sober 16 days Sex Assigned at Date Recorded Female 01/14/2020 10:57 AM CLOTH BLEACHING RANGE OPERATOR CHIEF documented as of this encounter Last Filed Vital Signs Vital Sign Reading Time Taken Comments Blood Pressure 156/95 01/21/2019 1:10 AM CLOTH BLEACHING RANGE OPERATOR CHIEF Pulse 99 01/21/2019 1:10 AM CLOTH BLEACHING RANGE OPERATOR CHIEF Temperature 36.8 ??C (98.3 ??F) 01/20/2019 8:05 PM CLOTH BLEACHING RANGE OPERATOR CHIEF Respiratory Rate - - Oxygen Saturation 98% 01/21/2019 1:10 AM CLOTH BLEACHING RANGE OPERATOR CHIEF Inhaled Oxygen Concentration - - Weight - [...] Surgical History: Breast surgery section x 2 Home Health Clinician surgery Orthopedic surgery Thoracic surgery Family History: Mother - Depression, psychotic disorder, thyroid disease Father - Cerebrovascular disease, [place] Brother(s) - Depression Son - Asthma Social [...] patient. Patient placed on ROBERT hold. (2304) [address] [place] [address] agreed to take the patient into their care. Findings and plan explained to the Patient. Patient will be transferred to [address] [place] [address] via EMS. Discussed the case with [address] [place] [address], who will admit the patient to a [...] nicotine product type F17.200 Disposition: Discharged to [address] [place] [address]. Scribe Disclosure: IKaveh, am serving as a scribe at 8:36 PM on 01/20/2019 to document services personally performed by Eliud Fernandez MD based on my observations and the provider's statements to me. 01/20/2019 [facility] EMERGENCY DEPARTMENT Eliud Fernandez MD 01/20/19 [address] BLEACHING RANGE OPERATOR CHIEF documented in this encounter Plan of Treatment Upcoming Encounters Date Type Specialty Care Team Description 12/20/2021 Office Visit Wound Care Hoa Luis Lex, DPM [address] [place], [place] [id number] (Wo rk) 01/21/2022 PRE VISIT Gastroenterology Landon Warren, *-*INCOMIN G RECORDS*-* MD Luis Fernando [address] [address] (Wo rk) 01/21/2022 Office Visit Gastroenterology Juanis Levi [address] [place] [address] Luis Fernando Miles MD [address] [id number] documented as of this encounter Procedures Procedure Name Priority Date/Time Associated Comments Diagnosis XR ANKLE RIGHT 2 VIEWS STAT 01/20/2019 10:24 R esults for this PM CLOTH BLEACHING RANGE OPERATOR CHIEF procedure are i n the results section. CBC WITH PLATELETS & STAT 01/20/2019 8:35 PM R esults for this DIFFERENTIAL CLOTH BLEACHING RANGE OPERATOR CHIEF procedure are i n the results section. LIPASE STAT 01/20/2019 8:35 PM Results f or this CLOTH BLEACHING RANGE OPERATOR CHIEF procedure are i n the results section. COMPREHENSIVE STAT 01/20/2019 8:35 PM Results for this METABOLIC PANEL CLOTH BLEACHING RANGE OPERATOR CHIEF procedure ar e in the results section. ETHYL ALCOHOL LEVEL STAT 01/20/2019 8:35 PM Re sults for this CLOTH BLEACHING RANGE OPERATOR CHIEF procedure are i n the results section. documented in this encounter Results XR Ankle Right 2 Views (01/20/2019 10:24 PM CLOTH BLEACHING RANGE OPERATOR CHIEF) Anatomical Region Laterality Modality Leg, Ankle, Foot Right Digital Radiography Specimen (Source) Anatomical Collection Method Collection Time Re ceived Time Location / / Volume Laterality 01/20/2019 10:16 PM CLOTH BLEACHING RANGE OPERATOR CHIEF Impressions 01/20/2019 10:37 PM CLOTH BLEACHING RANGE OPERATOR CHIEF IMPRESSION: There is a region of lucency medial talar dome. This suggests osteochondral injury. Degenerative canales es in the ankle joint. No acute fracture or dislocation. Previous internal fixation of the anterior calcaneus. Narrative 01/20/2019 10:37 PM CLOTH BLEACHING RANGE OPERATOR CHIEF EXAM: XR ANKLE RT 2 VW LOCATION: [facility] DATE/TIME: 01/20/2019 10:16 PM INDICATION: Ankle swelling. COMPARISON: None. Procedure Note Durga Fuentes MD - 01/20/2019Formattin g of this note might be different from the original. EXAM: XR ANKLE RT 2 VW LOCATION: [facility] DATE/TIME: 01/20/2019 10:16 PM INDICATION: Ankle swelling. COMPARISON: None. IMPRESSION: There is a region of lucency medial talar dome. This suggests osteochondral injury. Degenerative changes in the ankle joint. No acute fracture or dislocation. Previous internal fixation of the anterior calcaneus. Eliud Fernandez MD IMG DIAGNOSTIC IMAGING ORDERABLES (ABNORMAL) Alcohol ethyl (01/20/2019 8:35 PM CLOTH BLEACHING RANGE OPERATOR CHIEF) athologist Signature Ethanol g/dL 0.41 (HH) <0.01 g/dL 01/20/2019 [place] 10:19 PM [facility] Comment: Specimen run with a dilution Critical Value called to and read back Margo DAVID (ERA) ON 01.20.2019 AT 2218 B Y VL Specimen Anatomical Collection Method Collection Time Receive d Time (Source) Location / / Volume Laterality Blood specimen 01/20/2019 8:35 PM 019 9:23 (specimen) CLOTH BLEACHING RANGE OPERATOR CHIEF PM CLOTH BLEACHING RANGE OPERATOR CHIEF Eliud Fernandez MD LAB - BLOOD ORDERABLES Performing Organization Address City/State/ZIP Code Phon e Number M [facility] [address] [place] [address] [phone] [facility] [address] [place] [address], [place] [phone] (ABNORMAL) Comprehensive metabolic panel (01/20/2019 8:35 PM CLOTH BLEACHING RANGE OPERATOR CHIEF) athologist Signature Sodium 143 133 - 144 01/20/2019 [place] mmol/L 10:19 PM [facility] Potassium 3.9 3.4 - 5.3 01/20/2019 [place] mmol/L 10:19 PM [facility] Comment: Specimen slightly hemolyzed, po tassium may be falsely elevated Chloride 106 94 - 109 mmol/L 01/20/2019 10:19 PM [facility] Carbon Dioxide 29 20 - 32 mmol/L 01/20/2019 10:19 PM [facility] Anion Gap 8 3 - 14 mmol/L 01/20/2019 10:19 PM [facility] Glucose 98 70 - 99 mg/dL 01/20/2019 10:19 PM [facility] Urea Nitrogen 6 (L) 7 - 30 mg/dL 01/20/2019 10:19 PM LUIS ALBERTO SERGIO [facility] Creatinine 0.61 0.52 - 1.04 mg/dL 01/20/2019 10:19 PM [facility] GFR Estimate >90 >60 01/20/2019 10:19 PM JAS OSORIO mL/min/{1.73_m2} [facility] Comment: Non GFR Calc Starting 02/03/2018, serum creatinine ba sed estimated GFR (eGFR) will be calculated using the Chronic Kidney Dise [facility] Epidemiology Collaboration (CKD-EPI) equation. GFR Estimate If >90 >60 mL/min/{1.73_m2} 01/20/2019 10:19 PM [facility] Comment: GFR Calc Starting 02/03/2018, serum creatinine ba sed estimated GFR (eGFR) will be calculated using the Chronic Kidney Dise [facility] Epidemiology Collaboration (CKD-EPI) equation. Calcium 8.9 8.5 - 10.1 01/20/2019 10:19 PM [facility] mg/dL [facility] Bilirubin Total 0.9 0.2 - 1.3 mg/dL 01/20/2019 10:19 P M [facility] Albumin 3.9 3.4 - 5.0 g/dL 01/20/2019 10:19 PM HEIDY COOK [facility] Protein Total 8.8 6.8 - 8.8 g/dL 01/20/2019 10:19 PM [facility] Alkaline Phosphatase 117 40 - 150 U/L 01/20/2019 10:19 PM [facility] ALT 117 (H) 0 - 50 U/L 01/20/2019 10:19 PM [facility] AST 158 (H) 0 - 45 U/L 01/20/2019 10:19 PM [facility] Comment: Specimen is hemolyzed which can falsely elevate AST. Analysis of a non-hemolyzed specimen may result in a l ower value. Specimen Anatomical Collection Method Collection Time Receive d Time (Source) Location / / Volume Laterality Blood specimen 01/20/2019 8:35 PM 019 9:23 (specimen) CLOTH BLEACHING RANGE OPERATOR CHIEF PM CLOTH BLEACHING RANGE OPERATOR CHIEF Eliud Fernandez MD LAB - BLOOD ORDERABLES Performing Organization Address City/State/ZIP Code Phon e Number M [facility] [address] [place] [address] [phone] [facility] [address] [place] [address], [place] [phone] Lipase (01/20/2019 8:35 PM CLOTH BLEACHING RANGE OPERATOR CHIEF) P athologist Signature Lipase 334 73 - 393 01/20/2019 [place] U/L 10:19 PM [facility] Specimen Anatomical Collection Method Collection Time Receive d Time (Source) Location / / Volume Laterality Blood specimen 01/20/2019 8:35 PM 019 9:23 (specimen) CLOTH BLEACHING RANGE OPERATOR CHIEF PM CLOTH BLEACHING RANGE OPERATOR CHIEF Eliud Fernandez MD LAB - BLOOD ORDERABLES Performing Organization Address City/State/ZIP Code Phon e Number M [facility] [address] [place] [address] [phone] [facility] [address] [place] [address], [place] [phone] (ABNORMAL) CBC with platelets differential (01/20/2019 8:35 PM CLOTH BLEACHING RANGE OPERATOR CHIEF) Patholo gist Method Time Signature WBC 4.0 4.0 - 01/20/2019 [facility] 11.0 9:28 PM [facility] 10e9/L [facility] RBC Count 4.55 3.8 - 5.2 01/20/2019 [facility] 10e12/L 9:28 PM [facility] Hemoglobin 14.7 11.7 - 01/20/2019 [facility] 15.7 g/dL 9:28 PM [facility] Hematocrit 44.7 35.0 - 01/20/2019 [facility] 47.0 % 9:28 PM [facility] MCV 98 78 - 100 01/20/2019 [facility] fl 9:28 PM [facility] MCH 32.3 26.5 - 01/20/2019 [facility] 33.0 pg 9:28 PM [facility] MCHC 32.9 31.5 - 01/20/2019 [facility] 36.5 g/dL 9:28 PM [facility] RDW 13.2 10.0 - 01/20/2019 [facility] 15.0 % 9:28 PM [facility] Platelet Count 119 (L) 150 - 450 01/20/2019 [facility] 10e9/L 9:28 PM [facility] Diff Method Automated 01/20/2019 [facility] Method 9:28 PM [facility] % Neutrophils 31.5 % 01/20/2019 [facility] 9:28 PM [facility] % Lymphocytes 58.7 % 01/20/2019 [facility] 9:28 PM [facility] % Monocytes 7.4 % 01/20/2019 [facility] 9:28 PM [facility] % Eosinophils 1.2 % 01/20/2019 [facility] 9:28 PM [facility] % Basophils 0.7 % 01/20/2019 [facility] 9:28 PM [facility] % Immature 0.5 % 01/20/2019 [facility] Granulocytes 9:28 PM [facility] Nucleated RBCs 0 0 /100 01/20/2019 [facility] 9:28 PM [facility] Absolute 1.3 (L) 1.6 - 8.3 01/20/2019 [facility] Neutrophil 10e9/L 9:28 PM [facility] Absolute 2.4 0.8 - 5.3 01/20/2019 [facility] Lymphocytes 10e9/L 9:28 PM [facility] Absolute 0.3 0.0 - 1.3 01/20/2019 [facility] Monocytes 10e9/L 9:28 PM [facility] Absolute 0.1 0.0 - 0.7 01/20/2019 [facility] Eosinophils 10e9/L 9:28 PM [facility] Absolute 0.0 0.0 - 0.2 01/20/2019 [place] Basophils 10e9/L 9:28 PM [facility] Abs Immature 0.0 0 - 0.4 01/20/2019 [place] Granulocytes 10e9/L 9:28 PM [facility] Absolute 0.0 01/20/2019 [place] Nucleated RBC 9:28 PM [facility] Specimen Anatomical Collection Method Collection Time Receive d Time (Source) Location / / Volume Laterality Blood specimen 01/20/2019 8:35 PM 019 9:23 (specimen) CLOTH BLEACHING RANGE OPERATOR CHIEF PM CLOTH BLEACHING RANGE OPERATOR CHIEF Eliud Fernandez MD LAB - BLOOD ORDERABLES Performing Organization Address City/State/ZIP Code Phon e Number M [place] [address] [address] [facility] [address] [phone] documented in this encounter Visit Diagnoses Diagnosis [...] chloride BOLUS New Bag 01/20/2019 11:57 PM CLOTH BLEACHING RANGE OPERATOR CHIEF 500 mLs 500 mL/hr Intravenous, 500 mL, ONCE, at 500 mL/hr, Administer over 1 Hours, On Fri01/20/19 at 2332, For 1 dose buprenorphine HCl-naloxone HCl (SUBOXONE) Given 01/20/2019 10:33 PM CLOTH BLEACHING RANGE OPERATOR CHIEF 1 Film 8-2 MG per film 1 Film 1 Film, Sublingual, ONCE, On Fri01/20/19 at 2135, For 1 dose documented in this encounter Active and Recently Administered Medications Times are shown in CLOTH BLEACHING RANGE OPERATOR CHIEF. Scheduled Medication Order 01/19/2019 01/20/2019 01/21/2019 0.9% sodium chloride BOLUS (COMPLETED) 2 357 (New Bag - Provider: Luis Fernando Zavala RN) 0041 (Stopped - Provider: Luis Fernando karimi RN) Intravenous, 500 mL, ONCE, at 500 mL/hr, Administer over 1 Hours, On Fri01/20/19 at 2332, For 1 dose buprenorphine HCl-naloxone HCl (SUBOXONE) 8-2 MG per film 1 Film (COMPLETED) 2233 (Given - Provider: Luis Fernando Zavala RN) 1 Film, Sublingual, ONCE, Fri01/20/19 at 2135, For 1 dose documented in this encounter Additional Health Concerns Assessment Noted Time PHQ-9 Depression Total Score: 10 07/08/2018 1:27 PM CD T documented as of this encounter Care Teams Medical Technical Writer Relationship Specialty Start Date End Date Clinic, [facility] PCP - General 01/20/18 06/28/[address] [place] [address] Tatyana Haas APRN DIESEL TECHNICIAN Assigned PCP 08/02/18 01/29/20 [place] [facility] [address] [facility] [address] [place] [address] documented as of this encounter
--- OUTSIDE RECORDS SUMMARY | 2021-12-13 12:34 | XMS_ITS | Encounter Summary ---
:1980 Author Organization [place] Address [address] [facility] [place] [address] Care Team Providers Name Role Phone Clinic, [facility] Primary Care Provide r Tatyana Haas Sanju SUPERVISOR LENDING ACTIVITIES DUCK FARMER Unavailable [phone] Encounter Details Date Type Department Care [...] at Date Recorded Female 01/14/2020 10:57 AM OPTICAL LABORATORY MECHANIC documented as of this encounter Plan of Treatment Upcoming Encounters Date Type Specialty Care Team Description 12/20/2021 Office Visit Wound Care Luis Camara DPM [address] [place] [address] (Wo rk) 01/21/2022 PRE VISIT Gastroenterology Landon Warren, *-*HEATHER Barriga RECORDS*-* MD Luis Fernando [address] [facility] [address] [place] [address] (Wo rk) 01/21/2022 Office Visit Gastroenterology Juanis Levi [address] [place] [address] Luis Fernando Miles MD [address] [facility] [address] [place], [place] [phone] documented as of this encounter Visit Diagnoses Not on filedocumented in this encounter Additional Health Concerns Assessment Noted Time PHQ-9 Depression Total Score: 10 07/08/2018 1:27 PM CD T documented as of this encounter Care Teams Chief Unit Forester Relationship Specialty Start Date End Date Clinic, [facility] PCP - General 01/20/18 06/28/[address] [place] [address] Tatyana Haas APRN DUCK FARMER Assigned PCP 08/02/18 01/29/20 [facility] [address] [facility] [address] [place], [place] [address] documented as of this encounter
--- OUTSIDE RECORDS SUMMARY | 2021-12-13 12:34 | XMS_ITS | Encounter Summary ---
:1980 Author Organization [place] Address [address] [place] [address] Care Team Providers Name Role Phone Clinic, [facility] Primary Care Provide r Encounter Details [...] Date Recorded Female 01/14/2020 10:57 AM PRIME MINISTER documented as of this encounter Plan of Treatment Upcoming Encounters Date Type Specialty Care Team Description 12/20/2021 Office Visit Wound Care Luis Camara, [place] [address] [place], [place] [address] (Wo rk) 01/21/2022 PRE VISIT Gastroenterology Landon Warren, *-*WANDAIN G RECORDS*-* MD Luis Fernando [address] [facility] [address] [place], [place] [address] (Wo rk) 01/21/2022 Office Visit Gastroenterology Juanis Levi [address] [place] [phone] Luis Fernando Miles MD [address] [facility] [place] [address] documented as of this encounter Visit Diagnoses Not on filedocumented in this encounter Additional Health Concerns Assessment Noted Time PHQ-9 Depression Total Score: 10 07/08/2018 1:27 PM CD T documented as of this encounter Care Teams Dispatcher Electric Power Relationship Specialty Start Date End Date Clinic, [facility] PCP - General 01/20/18 06/28/[address] [place] [address] documented as of this encounter
--- OUTSIDE RECORDS SUMMARY | 2021-12-13 12:34 | XMS_ITS | Encounter Summary ---
:1980 Author Organization [place] Address [address] [facility] [place] [address] Care Team Providers Name Role Phone Clinic, [facility] Primary Care Provide r Reason for Visit Reason Comments Constipation Derm Problem Encounter Details Date Type Department Care Team Description 07/28/2018 Office Visit [facility] Tatyana Haas, Rash and nonspecific skin eruption (Primary Dx); Clinic [place] HANDCREW FOREMAN MAIL CARRIER Drug-induced constipation; [address] [place] DIGESTIVE Alcohol abuse, continuous [address] [place], [place] [address] [address] [address] 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 States that she does not currently have a PCP. Will forward chart to medical assembly for review. Constipation Improvement with constipation with [...] Trino Luciano MD; Location: [facility] OR ??? RUBBER STAMP DIE INSPECTOR SURGERY ??? ORTHOPEDIC SURGERY ??? THORACIC SURGERY [...] -Refills sent. Return for Follow up with [facility] [place] and PCP as scheduled.. Tatyana Haas APRN CNP [facility] documented in this encounter Plan of Treatment Upcoming Encounters Date Type Specialty Care Team Description 12/20/2021 Office Visit Wound Care Luis Camara DPM [address] [place] [address] (Wo rk) 01/21/2022 PRE VISIT Gastroenterology Landon Warren, *-*WANDAIN G RECORDS*-* MD Luis Fernando 6 [facility] [address] [place] [address] (Wo rk) 01/21/2022 Office Visit Gastroenterology Juanis Levi [address] [place] [address] Luis Fernando Miles MD [address] [facility] [address] [place], [place] [address] documented as of this encounter Visit Diagnoses Diagnosis Rash and nonspecific skin eruption - Pari trino Rash and other nonspecific skin eruption Drug-induced constipation Other constipation Alcohol abuse, continuous Nondependent alcohol abuse, continuous d rinking behavior documented in this encounter Additional Health Concerns Assessment Noted Time PHQ-9 Depression Total Score: 10 07/08/2018 1:27 PM CD T documented as of this encounter Care Teams Denial Resolution Specialist Relationship Specialty Start Date End Date Clinic, [facility] PCP - General 01/20/18 06/28/[address] [place] [address] documented as of this encounter
--- OUTSIDE RECORDS SUMMARY | 2021-12-13 12:34 | XMS_ITS | Encounter Summary ---
:1980 Author Organization [place] Address [address] [facility] 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 documented as of this encounter Plan of Treatment Upcoming Encounters Date Type Specialty Care Team Description 12/20/2021 Office Visit Wound Care Luis Camara DPM [address] [place], [place] [address] (Wo rk) 01/21/2022 PRE VISIT Gastroenterology Landon Warren, *-*HEATHER Barriga RECORDS*-* MD Luis Fernando [address] [facility] [address] [place], [place] [address] (Wo rk) 01/21/2022 Office Visit Gastroenterology Juanis Levi [address] [place] [address] Lui sFernando Miles MD 6 [facility] [address] [place], [place] [address] documented as of this encounter Visit Diagnoses Not on filedocumented in this encounter Additional Health Concerns Assessment Noted Time PHQ-9 Depression Total Score: 10 07/08/2018 1:27 PM CD T documented as of this encounter Care Teams Licensed Therapist Relationship Specialty Start Date End Date Clinic, [facility] PCP - General 01/20/18 06/28/[address] [place] [address] Tatyana Haas APRN DRAWER IN HAND Assigned PCP 08/02/18 01/29/20 [facility] [address] [facility] [address] [place], [place] [address] documented as of this encounter
--- OUTSIDE RECORDS SUMMARY | 2021-12-13 12:34 | XMS_ITS | Encounter Summary ---
:1980 Author Organization [place] Address [facility] [place] [address] Care Team Providers Name Role Phone Clinic, [facility] Primary Care Provide r Tatyana Haas Sanju SHORE HAND DREDGE OR BARGE NEWSPAPER PEDDLER Unavailable [phone] Reason for Visit Reason Comments Chest Pain Encounter Details Date Type Department Care Team Description 08/23/2018 Emergency [facility] Sandra Moreno intoxication without complication (H); 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 Alcohol Intoxication (Tajik)Hypokalemia (Tajik)Chest Pain, Uncertain Cause (Tajik)documented in this encounter Medications at Time of [...] History Chief Complaint: Chest Pain/numbness HPI Stephani Rdedy is a 37 year old female, with [...] History: Breast surgery - abscess drained x2 Commercial Coordinator surgery Orthopedic surgery Thoracic surgery Family History: Mother - depression, psychotic disorder, thyroid disease Father - cerebrovascular disease, [place] Brother - depression Social History: The patient [...] nerves intact. Motor- moves all 4 extremities, qc manager 5/5. DF and PF 5/5. Sensation- intact arms and face and legs. Coordination- ambulatory. Overall symmetrical exam HEME: no bruising or petechiae/contusions LYMPH: no lymphadenopathy Emergency Department Course ECG: ECG taken at 0136, ECG read at [address] Sandra Moreno MD Normal sinus rhythm Prolonged QT Abnormal ECG Rate 92 bpm. OR interval 160. QRS duration 102. QT/QTc 390/482. [...] while in the emergency department, results above. (5454) I performed an exam of the patient [...] PCP. (0450) Patient's mother has arrived to continuous pickling line pickler helper patient. (0452) Rechecked patient. (0504) Spoke with [...] and the provider's statements to me. 08/23/2018 [facility] EMERGENCY DEPARTMENT Sandra Moreno MD 08/23/18 5285 documented in this encounter Plan of Treatment Upcoming Encounters Date Type Specialty Care Team Description 12/20/2021 Office Visit Wound Care Luis Camara, [place] [address] [place], [place] [phone] (Wo rk) 01/21/2022 PRE VISIT Gastroenterology Landon Warren, *-*INCOMIN G RECORDS*-* MD Luis Fernando [address] [place] [phone] (Wo jesse) 01/21/2022 Office Visit Gastroenterology Juanis Levi [address] [place] [phone] Luis Fernando Miles MD [address] [place] [address] documented as of this encounter Procedures Procedure [...] UA with Microscopic (08/23/2018 2:55 AM CDT) [facility] Method Time Signature Color Urine Yellow 08/23/2018 [facility] 3:04 AM CDT [facility] Appearance Urine Clear 08/23/2018 [facility] 3:04 AM CDT [facility] Glucose Urine Negative NEG^Negat 08/23/2018 [facility] paula mg/dL 3:04 AM [facility] Bilirubin Urine Negative NEG^Negat 08/23/2018 [facility] paula 3:04 AM [facility] Ketones Urine Negative NEG^Negat 08/23/2018 [place] paula mg/dL 3:04 AM [facility] Specific [place] 1.020 1.003 - 08/23/2018 [place] Urine 1.035 3:04 AM [facility] Blood Urine Negative NEG^Negat 08/23/2018 [facility] paula 3:04 AM [facility] pH Urine 6.5 5.0 - 7.0 08/23/2018 [place] pH 3:04 AM [facility] Protein Albumin 20 (A) NEG^Negat 08/23/2018 [place] Urine paula mg/dL 3:04 AM [facility] Urobilinogen >12.0 (H) 0.0 - 2.0 08/23/2018 [place] mg/dL mg/dL 3:04 AM [facility] Nitrite Urine Negative NEG^Negat 08/23/2018 [facility] paula 3:04 AM [facility] Leukocyte Negative NEG^Negat 08/23/2018 [place] Esterase Urine paula 3:04 AM [facility] Source Midstream 08/23/2018 [place] Urine 2:55 AM [facility] WBC Urine <1 0 - 5 08/23/2018 [facility] /HPF 3:04 AM [facility] RBC Urine <1 0 - 2 08/23/2018 [facility] /HPF 3:04 AM [facility] Squamous 1 0 - 1 08/23/2018 [facility] Epithelial /HPF /HPF 3:04 AM [facility] Mucous Urine Present (A) NEG^Negat 08/23/2018 [place] paula /LPF 3:04 AM [facility] Hyaline Casts 1 0 - 2 08/23/2018 [facility] /LPF 3:04 AM [facility] Specimen (Source) Anatomical Collection Method Collection Time Re ceived Time Location / / Volume Laterality Examination of URINE SPECIMEN 08/23/2018 2:55 08/24/19 19 3:00 midstream urine OBTAINED BY CLEAN [facility] specimen CATCH PROCEDURE / (procedure) Unknown Sandra Moreno MD LAB - URINE ORDERABLES Performing Organization Address City/[facility]/ZIP Code Phon e Number M [facility] [address], [place] [address] [facility] [address] [place], [place] [address], [facility] [phone] (ABNORMAL) Alcohol ethyl (08/23/2018 1:44 AM CDT) P athologist Signature Ethanol g/dL 0.19 (H) <0.01 g/dL 08/23/2018 [place] 2:[address] [facility] Specimen Anatomical Collection Method Collection Time Receive d Time (Source) Location / / Volume Laterality 08/23/2018 1:44 AM 9 1:49 CDT AM CDT Sandra Moreno MD LAB - BLOOD ORDERABLES Performing Organization Address [facility]/ZIP [facility] Phon e Number M [facility] [address] [place] [address] [facility] [address] [place] [address], U [phone] HCG QUALitative (blood) (08/23/2018 1:44 AM CDT) [facility] g[facility] Method Time Signature HCG Qualitative Negative NEG^Negati 08/23/2018 [place] Serum ve 2:10 AM CDT [facility] Comment: This test is for screening purposes. ??R esults should be interpreted along with the clinical picture. ??Confirmation te sting is available if warranted by ordering [id number], HCG Quantitative Pregna ncy. Specimen Anatomical Collection Method Collection Time Receive d Time (Source) Location / / Volume Laterality Blood specimen 08/23/2018 1:44 AM 019 1:49 (specimen) CDT AM CDT Sandra Moreno MD LAB - BLOOD ORDERABLES Performing Organization Address City/[facility]/ZIP Code Phon e Number M [facility] [address] [place], [place] [address] [facility] [address] [place], [place] [address] [facility] [phone] Troponin I (08/23/2018 1:44 AM CDT) [facility] Troponin I ES <0.015 0.000 - 08/23/2018 [facility] 0.045 ug/L 2:13 AM [facility] Comment: The 99th percentile for upper [...] Address City/State/ZIP Code Phon e Number M [place] [address] [address] [facility] [address] [address] [address] [place] [address] (ABNORMAL) Basic metabolic panel (08/23/2018 1:44 AM CDT) [facility] Sodium 141 133 - 144 08/23/2018 [place] mmol/L 2:04 AM [facility] Potassium 2.7 (L) 3.4 - 5.3 08/23/2018 [facility] mmol/L 2:04 AM [facility] Chloride 105 94 - 109 08/23/2018 [facility] mmol/L 2:04 AM [facility] Carbon Dioxide 26 20 - 32 08/23/2018 [facility] mmol/L 2:08 AM [facility] Anion Gap 10 3 - 14 08/23/2018 [facility] mmol/L 2:08 AM [facility] Glucose 99 70 - 99 08/23/2018 [facility] mg/dL 2:08 AM [facility] Urea Nitrogen 6 (L) 7 - 30 08/23/2018 [facility] mg/dL 2:08 AM [facility] Creatinine 0.55 0.52 - 08/23/2018 [facility] 1.04 mg/dL 2:08 AM [facility] GFR Estimate >90 >60 08/23/2018 [place] mL/min/{1. 2:08 AM T [facility] 73_m2} HOSPITAL Comment: Non GFR Calc Starting 02/03/2018, serum creatinine ba sed estimated GFR (eGFR) will be calculated using the Chronic Kidney Dise [facility] Epidemiology Collaboration (CKD-EPI) equation. GFR Estimate If >90 >60 mL/min/{1.73_m2} 08/23/2018 2: 08 AM [facility] Comment: GFR Calc Starting 02/03/2018, serum creatinine ba sed estimated GFR (eGFR) will be calculated using the Chronic Kidney Dise [facility] Epidemiology Collaboration (CKD-EPI) equation. Calcium 8.5 8.5 - 10.1 mg/dL 08/23/2018 2:08 AM [facility] Specimen Anatomical Collection Method Collection Time Receive d Time (Source) Location / / Volume Laterality Blood specimen 08/23/2018 1:44 AM 019 1:49 (specimen) CDT [facility] Sandra Moreno MD LAB - BLOOD ORDERABLES Performing Organization Address City/State/ZIP Code Phon e Number M [address] [address] [facility] [address] [place], [place] [address] [phone] [address], [facility] (ABNORMAL) CBC with platelets differential (08/23/2018 1:44 AM CDT) [facility] Method Time Signature WBC 3.9 (L) 4.0 - 08/23/2018 [place] 11.0 1:52 AM ON LICENSE OF [facility] 10e9/L [facility] RBC Count 3.96 3.8 - 5.2 08/23/2018 [place] 10e12/L 1:52 AM [facility] Hemoglobin 12.8 11.7 - 08/23/2018 [place] 15.7 g/dL 1:52 AM [facility] Hematocrit 37.3 35.0 - 08/23/2018 [place] 47.0 % 1:52 AM [facility] MCV 94 78 - 100 08/23/2018 [facility] fl 1:52 AM [facility] MCH 32.3 26.5 - 08/23/2018 [facility] 33.0 pg 1:52 AM [facility] MCHC 34.3 31.5 - 08/23/2018 [facility] 36.5 g/dL 1:52 AM [facility] RDW 12.3 10.0 - 08/23/2018 [facility] 15.0 % 1:52 AM [facility] Platelet Count 84 (L) 150 - 450 08/23/2018 [facility] 10e9/L 1:52 AM [facility] Diff Method Automated 08/23/2018 [facility] Method 1:52 AM [facility] % Neutrophils 29.6 % 08/23/2018 [facility] 1:52 AM [facility] % Lymphocytes 59.7 % 08/23/2018 [facility] 1:52 AM [facility] % Monocytes 8.2 % 08/23/2018 [facility] 1:52 AM [facility] % Eosinophils 2.0 % 08/23/2018 [facility] 1:52 AM [facility] % Basophils 0.5 % 08/23/2018 [facility] 1:52 AM [facility] % Immature 0.0 % 08/23/2018 [facility] Granulocytes 1:52 AM [facility] Nucleated RBCs 0 0 /100 08/23/2018 [facility] 1:52 AM [facility] Absolute 1.2 (L) 1.6 - 8.3 08/23/2018 [facility] Neutrophil 10e9/L 1:52 AM [facility] Absolute 2.3 0.8 - 5.3 08/23/2018 [facility] Lymphocytes 10e9/L 1:52 AM [facility] Absolute 0.3 0.0 - 1.3 08/23/2018 [facility] Monocytes 10e9/L 1:52 AM [facility] Absolute 0.1 0.0 - 0.7 08/23/2018 [facility] Eosinophils 10e9/L 1:52 AM [facility] Absolute 0.0 0.0 - 0.2 08/23/2018 [facility] Basophils 10e9/L 1:52 AM [facility] Abs Immature 0.0 0 - 0.4 08/23/2018 [place] Granulocytes 10e9/L 1:52 AM CDT [facility] Absolute 0.0 08/23/2018 [place] Nucleated RBC 1:52 AM [facility] Specimen Anatomical Collection Method Collection Time Receive d Time (Source) Location / / Volume Laterality Blood specimen 08/23/2018 1:44 AM 019 1:49 (specimen) CDT AM CDT Sandra Moreno MD LAB - BLOOD ORDERABLES Performing Organization Address City/State/ZIP [facility] Phon e Number [place] [address] [address] [facility] [address] [phone] EKG 12 lead (08/23/2018 1:36 AM CDT) [facility] gist Method Time Signature Interpretation ECG Click View RADIOLOGY Image link RESULTS to view waveform and result Specimen (Source) Anatomical Collection Method Collection Time Re ceived Time Location / / Volume Laterality 08/23/2018 1:36 AM CDT Sandra Moreno MD ECG ORDERABLES Performing Organization Address City/[facility] Phon e Number RADIOLOGY RESULTS documented in [...] Ga [id number] (Stopped - Provider: Helena Ray, GEANRO) Intravenous, 1,000 mL, ONCE, at 1,000 mL [...] documented as of this encounter Care Teams Practice Consultant Relationship Specialty Start Date End Date Clinic, [facility] PCP - General 01/20/18 06/28/[address] [place] [address] Tatyana Haas APRN NEWSPAPER PEDDLER Assigned PCP 08/02/18 01/29/20 [facility] [address] [facility] [address] [place] [address] documented as of this encounter
--- OUTSIDE RECORDS SUMMARY | 2021-12-13 12:34 | XMS_ITS | Encounter Summary ---
:1980 Author Organization [place] Address [facility] [place] [address] Care Team Providers Name Role Phone Clinic, [facility] Primary Care Provide r Waldo Tatyana N QUALITY MANAGEMENT NURSE ANALYTICAL CLERK Unavailable [phone] Reason for Visit Reason Onset Date Comments No Show 12/22/2018 Encounter Details Date Type Department Care Team Description 12/22/2018 [facility] ( Primary Dx) Clinic Chavies FARZANA Alvarez ANALYTICAL CLERK [address] [place] [address] [place] [address] [address] [place] [address] [phone] Social History Tobacco Use Types Packs/Day Years Used Date Smoking Tobacco: Every Day Cigarettes 0.3 10 Smokeless Tobacco: Never Comments: 5-8 cigarettes a day Alcohol Use Standard Drinks/Week Comments Not Currently 0 (1 standard drink = 0.6 oz pure alcoho l) sober 16 days Sex Assigned at Date Recorded Female 01/14/2020 10:57 AM METAL FURNACE OPERATOR documented as of this encounter Progress Notes Alexander Linda MA - 12/22/2018 10:00 AM CST This patient was a no show for this scheduled appointment. L FURNACE OPERATOR documented in this encounter Plan of Treatment Upcoming Encounters Date Type Specialty Care Team Description 12/20/2021 Office Visit Wound Care Luis Camara DPM [address] [place], [place] [address] (Wo rk) 01/21/2022 PRE VISIT Gastroenterology Landon Warren, *-*INCOMIN G RECORDS*-* MD Luis Fernando [address] [address] (Wo rk) 01/21/2022 Office Visit Gastroenterology Juanis Levi [address] [place] [phone] Luis Fernando Miles MD [address] [place] [phone] documented as of this encounter Visit Diagnoses Diagnosis NO SHOW - Primary documented in this encounter Additional Health Concerns Assessment Noted Time PHQ-9 Depression Total Score: 10 07/08/2018 1:27 PM CD T documented as of this encounter Care Teams Dermatology Procedural Physician Relationship Specialty Start Date End Date Clinic, [facility] PCP - General 01/20/18 06/28/[address] [place] [address] Tatyana Haas, QUALITY MANAGEMENT NURSE ANALYTICAL CLERK Assigned PCP 08/02/18 01/29/20 [facility] [address] [facility] [address] [place] [address] documented as of this encounter
--- OUTSIDE RECORDS SUMMARY | 2021-12-13 12:34 | XMS_ITS | Encounter Summary ---
:1980 Author Organization [place] Address [address] [facility] [place] [address] Care Team Providers Name Role Phone Clinic, [facility] Primary Care Provide r Tatyana Haas APRN FILLING LAYER UP Unavailable [phone] Reason for Referral Mental Health Outpatient (Routine) - Closed Specialty Diagnoses / Procedures Referred By Contact Refer red To Contact Diagnoses Moderate major depression (H) Current every day smoker Uncomplicated opioid dependence (H) Stephani Pina APRN CNP [address] [place], [place] [address] Referral ID Status Reason Start Date Expiration Date Visits Requ ested Visits Authorized [id number] Closed 01/28/2020 01/27/2021 1 1 NG 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 Reason for Visit Reason Comments Establish Care Encounter Details Date Type Department Care Team Description 12/27/2019 [facility] Moderate major depression (H) (Primary Dx); Clinic Ashly Alvarez APRN CNP Alcohol abuse, continuous; [address] Current every day smoker; [address] Uncomplicated opioid dependence (H) [place] [address] [phone] Social History Tobacco Use Types Packs/Day Years Used Date Smoking Tobacco: Every Day Cigarettes 0.3 10 Smokeless Tobacco: Never Comments: 5-8 cigarettes a day Alcohol Use Standard Drinks/Week Comments Not Currently 0 (1 standard drink = 0.6 oz pure alcoho l) sober 16 days Sex Assigned at Date Recorded Female 01/14/2020 10:57 AM FILING 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 COVID-19 Exposure Response Date Recorded In the last month, have you been in contact with No / Unsure 01/11/2020 8:00 PM FILING 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 someone who was confirmed or suspected to have Coronavirus / COVID-19? documented as of this encounter Patient Instructions Patient InstructionsYovani Stephanidelon Alvarez, FARZANA FILLING LAYER UP - 12/27/2019 9:40 AM FILING 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 Images from the original note were [...] or use alcohol to avoid such symptoms. [email or web address] last reviewed this educational content on 03/20/2016 ?? [phone] [employer]. [address] [place] [address]. All rights reserved. This information is not [...] manage those feelings. ?? Community reinforcement approach (ANAESTHETIC TECHNICIAN). This therapy uses vouchers help you [...] encourage you to drink or use drugs.? [place] support groups. These groups are run voluntarily [...] behavioral change through participation in 12-step programs. [email or web address] last reviewed this educational content on 03/20/2016 ?? [phone] [employer]. [address] [place] [address], [place] [address]. All rights reserved. This information is not [...] you can. Go to a movie, ballgame, yazidism service, or social event. Talk openly with [...] can cause other physical and emotional problems. [email or web address] last reviewed this educational content on 01/17/2019 ?? [phone] [employer]. [address] [place] [address]. All rights reserved. This information is not intended as a substitute for professional medical care. Always follow your healthcare professional's instructions. NG 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 documented in this encounter Progress [...] be resent to: Send to e-mail at: [email or web address] Will anyone else be joining your video [...] follow-ups on file. Stephani Pina APRN CNP [facility] Video-Visit Details Type of service: Video Visit Video End Time:10:08 AM Originating Location (pt. Location): Home Distant Location (provider location): [facility] Platform used for Video Visit: [email or web address] NG 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 documented in this encounter Plan of Treatment Upcoming Encounters Date Type Specialty Care Team Description 12/20/2021 Office Visit Wound Care Luis Camara DPM [address] [place] [address] (Wo rk) 01/21/2022 PRE VISIT Gastroenterology Landon Warren, *-*WANDAIN G RECORDS*-* MD Luis Fernando [address] [facility] [place], [place] [address] (Wo rk) 01/21/2022 Office Visit Gastroenterology Juanis Levi [address] [place] [phone] Luis Fernando Miles MD [address] [place], [place] [address] [address] [place], [place] [address] Scheduled Referrals Name Type Priority Associated Diagnoses Order S [facility] REFERRAL - Referral Routine Moderate major O [...] Depression Total Score: 6 12/27/2019 9:38 AM FILING 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 documented as of this encounter Care Teams Catalytic Converter Operator Helper Relationship Specialty Start Date End Date Clinic, [facility] PCP - General 01/20/18 06/28/21 [facility] [place] [address] Tatyana Haas, WOOD ENGRAVER FILLING LAYER UP Assigned PCP 08/02/18 01/29/20 [facility] [address] [facility] [address] [place] [address] documented as of this encounter
--- OUTSIDE RECORDS SUMMARY | 2021-12-13 12:34 | XMS_ITS | Encounter Summary ---
:1980 Author Organization [place] [place] [address] Care Team Providers Name Role Phone Clinic, [facility] Primary Care Provide r Tatyana Haas Sanju MOTOR BOSS POLE CLASSIFIER Unavailable [phone] Reason for Visit Reason Comments Alcohol Intoxication Encounter Details Date Type Department Care Team Description 02/28/2019 Emergency [facility] Eliud Manley, Alcohol withdrawal [facility] Emergency MD syndrome without Dept EMERGENCY PHYSICIANS complication (H) [address] [place], [place] [address] [place] [id number] [place] [address] [place] [address] (Wo rk) Social History Tobacco Use Types Packs/Day Years Used Date Smoking Tobacco: Every Day Cigarettes 0.3 10 Smokeless Tobacco: Never Comments: 5-8 cigarettes a day Alcohol Use Standard Drinks/Week Comments Not Currently 0 (1 standard drink = 0.6 oz pure alcoho l) sober 16 days Sex Assigned at Date Recorded Female 01/14/2020 10:57 AM BUSINESS DEVELOPMENT 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 documented as of this encounter Last Filed Vital Signs Vital Sign Reading Time Taken Comments Blood Pressure 117/76 02/28/2019 6:30 PM BUSINESS DEVELOPMENT 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 Pulse 92 02/28/2019 6:30 PM BUSINESS DEVELOPMENT 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 Temperature 37 ??C (98.6 ??F) 02/28/2019 1:43 PM BUSINESS DEVELOPMENT 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 Respiratory Rate 20 02/28/2019 1:43 PM BUSINESS DEVELOPMENT 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 Oxygen Saturation 99% 02/28/2019 6:30 PM BUSINESS DEVELOPMENT 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 Inhaled Oxygen Concentration - - Weight 83.6 kg (184 lb 4.9 oz) 02/28/2019 1:43 PM BUSINESS DEVELOPMENT 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 Height - - Body Mass Index 29.75 07/04/2018 9:43 PM CDT documented in this encounter Discharge Instructions Discharge InstructionsEliud Manley MD - 02/28/2019 5:37 PM BUSINESS DEVELOPMENT 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 Please proceed to detox and follow-up with alcohol counseling when released. Please return to the emergency department as needed for new or worsening symptoms including thoughtsof self-harm or suicide, thoughts of harming other people, any other concerning symptoms. 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 They [...] to me. Mahsa Walsh 02/28/2019 [facility] Eliud Manley MD 03/02/19 1594 NESS DEVELOPMENT 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 documented in this encounter Plan of Treatment Upcoming Encounters Date Type Specialty Care Team Description 12/20/2021 Office Visit Wound Care Luis Camara DPM [address] [place], [place] [address] (Reinaldo molina) 01/21/2022 PRE VISIT Gastroenterology Landon Warren, *-*HEATHER G RECORDS*-* MD Luis Fernando [address] [facility] [address] [place], [place] [address] (Reinaldo molina) 01/21/2022 Office Visit Gastroenterology Juanis Levi [address] [place] [address] Luis Fernando Miles MD [address] [facility] [address] [place] [address] documented as of this encounter Procedures Procedure Name Priority Date/Time Associated Comments Diagnosis XR CHEST 2 VIEWS STAT 02/28/2019 4:29 PM Resul ts for this BUSINESS DEVELOPMENT 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 procedure are i n the results section. CBC WITH PLATELETS & STAT 02/28/2019 3:57 PM R esults for this DIFFERENTIAL BUSINESS DEVELOPMENT 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 procedure are i n the results section. INR STAT 02/28/2019 3:57 PM Results f or this BUSINESS DEVELOPMENT 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 procedure are i n the results section. LIPASE STAT 02/28/2019 3:57 PM Results f or this BUSINESS DEVELOPMENT 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 procedure are i n the results section. COMPREHENSIVE STAT 02/28/2019 3:57 PM Results for this METABOLIC PANEL BUSINESS DEVELOPMENT 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 procedure ar e in the results section. ETHYL ALCOHOL LEVEL STAT 02/28/2019 3:57 PM Re sults for this BUSINESS DEVELOPMENT 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 procedure are i n the results section. documented in this encounter Results XR Chest 2 Views (02/28/2019 4:29 PM BUSINESS DEVELOPMENT 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) Anatomical Region Laterality Modality Chest Digital Radiography Specimen (Source) Anatomical Location Collection Method / Collectio n Time Received Time / Laterality Volume Impressions 02/28/2019 6:42 PM BUSINESS DEVELOPMENT 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 IMPRESSION: No evidence of acute cardiopulmonary disease is seen. CAIO TERRAZAS MD Narrative 02/28/2019 6:42 PM BUSINESS DEVELOPMENT 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 CHEST TWO VIEW ?? 02/28/2019 4:29 PM [...] IMAGING ORDER JEFFERY INR (02/28/2019 3:57 PM BUSINESS DEVELOPMENT 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) athologist Signature INR 0.92 0.86 - 1.14 02/28/2019 [facility] 4:34 PM [facility] Specimen Anatomical Collection Method Collection Time Receive d Time (Source) Location / / Volume Laterality Blood specimen 02/28/2019 3:57 PM 020 4:05 (specimen) BUSINESS DEVELOPMENT 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 PM BUSINESS DEVELOPMENT 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 Eliud Manley MD LAB - BLOOD ORDERABLES Performing Organization Address [facility] Phon e Number [facility] [address] [address] [place] [address] [address] [id number], [facility] [phone] (ABNORMAL) Alcohol ethyl (02/28/2019 3:57 PM BUSINESS DEVELOPMENT 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) athologist Signature Ethanol g/dL 0.22 (H) <0.01 g/dL 02/28/2019 [place] 4:34 PM [facility] Specimen Anatomical Collection Method Collection Time Receive d Time (Source) Location / / Volume Laterality Blood specimen 02/28/2019 3:57 PM 020 4:05 (specimen) BUSINESS DEVELOPMENT 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 PM BUSINESS DEVELOPMENT 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 Eliud Manley MD LAB - BLOOD ORDERABLES Performing Organization Address [facility] Phon e Number [facility] [address] [address] [facility] [address] [address] [address] [phone] Lipase (02/28/2019 3:57 PM BUSINESS DEVELOPMENT 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) athologist Signature Lipase 145 73 - 393 02/28/2019 [facility] U/L 4:34 PM [facility] Specimen Anatomical Collection Method Collection Time Receive d Time (Source) Location / / Volume Laterality Blood specimen 02/28/2019 3:57 PM 020 4:05 (specimen) BUSINESS DEVELOPMENT 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 PM BUSINESS DEVELOPMENT 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 Eliud Manley MD LAB - BLOOD ORDERABLES Performing Organization Address City/State/ZIP Code Phon e Number [place] [address] [address] [place], [place] [address] [facility] [address] [address] [facility] [phone] (ABNORMAL) Comprehensive metabolic panel (02/28/2019 3:57 PM BUSINESS DEVELOPMENT 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) athologist Signature Sodium 140 133 - 144 02/28/2019 [place] mmol/L 4:25 PM [facility] Potassium 3.7 3.4 - 5.3 02/28/2019 [place] mmol/L 4:25 PM [facility] Chloride 106 94 - 109 02/28/2019 [place] mmol/L 4:25 PM [facility] Carbon Dioxide 28 20 - 32 02/28/2019 [place] mmol/L 4:32 PM [facility] Anion Gap 6 3 - 14 02/28/2019 [place] mmol/L 4:32 PM [facility] Glucose 156 (H) 70 - 99 02/28/2019 [place] mg/dL 4:32 PM [facility] Urea Nitrogen 9 7 - 30 02/28/2019 [place] mg/dL 4:32 PM [facility] Creatinine 0.72 0.52 - 02/28/2019 [facility] 1.04 mg/dL 4:32 PM [facility] GFR Estimate >90 >60 02/28/2019 [place] mL/min/{1. 4:32 PM [facility] 73_m2} HOSPITAL Comment: Non GFR Calc Starting 02/03/2018, serum creatinine ba sed estimated GFR (eGFR) will be calculated using the Chronic Kidney Dise [facility] Epidemiology Collaboration (CKD-EPI) equation. GFR Estimate If >90 >60 mL/min/{1.73_m2} 02/28/2019 4: 32 PM [facility] Comment: GFR Calc Starting 02/03/2018, serum creatinine ba sed estimated GFR (eGFR) will be calculated using the Chronic Kidney Dise [place] Epidemiology Collaboration (CKD-EPI) equation. Calcium 8.8 8.5 - 10.1 02/28/2019 4:32 PM [facility] mg/dL [facility] Bilirubin Total 0.5 0.2 - 1.3 mg/dL 02/28/2019 4:34 PM [facility] Albumin 3.8 3.4 - 5.0 g/dL 02/28/2019 4:34 PM [facility] Protein Total 8.5 6.8 - 8.8 g/dL 02/28/2019 4:34 PM [facility] Alkaline Phosphatase 155 (H) 40 - 150 U/L 02/28/2019 4:34 PM [facility] ALT 137 (H) 0 - 50 U/L 02/28/2019 4:34 PM [facility] AST 194 (H) 0 - 45 U/L 02/28/2019 4:34 PM [facility] Specimen Anatomical Collection Method Collection Time Receive d Time (Source) Location / / Volume Laterality Blood specimen 02/28/2019 3:57 PM 020 4:05 (specimen) BUSINESS DEVELOPMENT 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 PM [facility] Eliud Manley MD LAB - BLOOD ORDERABLES Performing Organization Address City/State/ZIP Code Phon e Number [place] [address] [facility] [address] [phone] (ABNORMAL) CBC with platelets differential (02/28/2019 3:57 PM [facility]) [facility] Method Time Signature WBC 2.3 (L) 4.0 - 02/28/2019 [facility] 11.0 4:11 PM [facility] 10e9/L [facility] RBC Count 4.22 3.8 - 5.2 02/28/2019 [facility] 10e12/L 4:11 PM [facility] Hemoglobin 14.1 11.7 - 02/28/2019 [facility] 15.7 g/dL 4:11 PM [facility] Hematocrit 41.7 35.0 - 02/28/2019 [facility] 47.0 % 4:11 PM [facility] MCV 99 78 - 100 02/28/2019 [facility] fl 4:11 PM [facility] MCH 33.4 (H) 26.5 - 02/28/2019 [facility] 33.0 pg 4:11 PM [facility] MCHC 33.8 31.5 - 02/28/2019 [facility] 36.5 g/dL 4:11 PM [facility] RDW 13.0 10.0 - 02/28/2019 [facility] 15.0 % 4:11 PM [facility] Platelet Count 96 (L) 150 - 450 02/28/2019 [facility] 10e9/L 4:11 PM [facility] Diff Method Automated 02/28/2019 [facility] Method 4:11 PM [facility] % Neutrophils 62.0 % 02/28/2019 [facility] 4:11 PM [facility] % Lymphocytes 32.8 % 02/28/2019 [facility] 4:11 PM [facility] % Monocytes 3.5 % 02/28/2019 [facility] 4:11 PM [facility] % Eosinophils 0.4 % 02/28/2019 [facility] 4:11 PM [facility] % Basophils 0.9 % 02/28/2019 [facility] 4:11 PM [facility] % Immature 0.4 % 02/28/2019 [facility] Granulocytes 4:11 PM [facility] Nucleated RBCs 0 0 /100 02/28/2019 [facility] 4:11 PM [facility] Absolute 1.4 (L) 1.6 - 8.3 02/28/2019 [facility] Neutrophil 10e9/L 4:11 PM [facility] Absolute 0.8 0.8 - 5.3 02/28/2019 [facility] Lymphocytes 10e9/L 4:11 PM [facility] Absolute 0.1 0.0 - 1.3 02/28/2019 [facility] Monocytes 10e9/L 4:11 PM [facility] Absolute 0.0 0.0 - 0.7 02/28/2019 [facility] Eosinophils 10e9/L 4:11 PM [facility] Absolute 0.0 0.0 - 0.2 02/28/2019 [facility] Basophils 10e9/L 4:11 PM [facility] Abs Immature 0.0 0 - 0.4 02/28/2019 [facility] Granulocytes 10e9/L 4:11 PM BUSINESS DEVELOPMENT 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 [facility] Absolute 0.0 02/28/2019 [place] Nucleated RBC 4:11 PM BUSINESS DEVELOPMENT 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 [facility] Specimen Anatomical Collection Method Collection Time Receive d Time (Source) Location / / Volume Laterality Blood specimen 02/28/2019 3:57 PM 020 4:05 (specimen) BUSINESS DEVELOPMENT 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 PM BUSINESS DEVELOPMENT 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 Eliud Manley MD LAB - BLOOD ORDERABLES Performing Organization Address City/State/ZIP Code Phon e Number [place] [address] [address] [place], [place] [address] [facility] [address] [place], [place] [address] [address] [phone] documented in this encounter Visit Diagnoses Diagnosis Alcohol withdrawal syndrome without comp lication (H) documented in this encounter Administered Medications Inactive Administered Medications - up to 3 most recent administrations Medication Order MAR Action Action Date Dose Rate Site LORazepam (ATIVAN) injection 1 mg Given 02/28/2019 4:10 PM BUSINESS DEVELOPMENT 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 1 mg 1 mg, Intravenous, ONCE, On 02/28/19 at 1547, For 1 dose, This drug may cause significant respiratory depression. Monitor respiratory status and vital signs carefully for 1 hour after each dose. oxymetazoline (AFRIN) 0.05 % spray 2 spr ay Given 02/28/2019 4:10 PM BUSINESS DEVELOPMENT 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 2 sprays 2 spray, Nasal, ONCE, On 02/28/19 at 1551, For 1 dose, Use for more than 3 consecutive days may cause rebound vasodilation. sodium chloride 0.9 % 1,000 mL with New Bag 02/28/2019 4:19 PM BUSINESS DEVELOPMENT 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 1000 mL/hr Infuvite Adult 10 mL, thiamine 100 mg, folic acid 1 mg infusion 1,000 mL, at 1,000 mL/hr, Intravenous, ONCE, 1 dose, On 02/28/19 at 1547 documented in this encounter Active and Recently Administered Medications Times are shown in BUSINESS DEVELOPMENT 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. Scheduled Medication Order 02/26/2019 02/27/2019 02/28/2019 LORazepam (ATIVAN) injection 1 mg (COMPLETED) 1610 (Given - Provider: Tarsha Lange RN) 1 mg, Intravenous, ONCE, On 02/28/19 at 1547, For 1 dose, This drug may cause significant respiratory depression. Monitor respiratory status and vital signs carefully for 1 hour after each dose. oxymetazoline (AFRIN) 0.05 % spray 2 spray (COMPLETED) 1610 (Given - Provider: Tarsha Lange, RN) 2 spray, Nasal, ONCE, On 02/28/19 at 1551, For 1 dose, Use for more than 3 consecutive days may cause rebound vasodilation. sodium chloride 0.9 % 1,000 mL with Infu lacy Adult 10 mL, thiamine 100 mg, folic acid 1 mg infusion (COMPLETED) 1619 (Ne w Bag - Provider: Tarsha Lange, GENARO)1742 (Stopped - Provider: Nga Pina RN) 1,000 mL, at 1,000 mL/hr, Intravenous, ONCE, 1 dose, On Sun 02/28 at 1547 documented in this encounter Additional Health Concerns Assessment Noted Time PHQ-9 Depression Total Score: 10 07/08/2018 1:27 PM CD T documented as of this encounter Care Teams Job Analysis Manager Relationship Specialty Start Date End Date Clinic, [facility] PCP - General 01/20/18 06/28/[address] [place] [address] Tatyana Haas APRN POLE CLASSIFIER Assigned PCP 08/02/18 01/29/20 [place] [facility] [address] [facility] [address] [place] [address] documented as of this encounter
--- OUTSIDE RECORDS SUMMARY | 2021-12-13 12:34 | XMS_ITS | Encounter Summary ---
:1980 Author Organization [place] Address [address] [place] [address] Care Team Providers Name Role Phone Clinic, [facility] Primary Care Provide r Tatyana Haas Sanju OR SCRUB TECH ESCORT CAR DRIVER Unavailable [phone] Reason for Visit Reason Comments Alcohol Problem Dizziness Encounter Details Date Type Department Care Team Description 08/23/2018 Emergency [facility] Loan Moise, PAMcC Dizziness; [facility] Emergency EMERGENCY PHYSICIANS Hyp omagnesemia; Dept PA Hypokalemia; [address] Alcohol withdrawal, uncomplicated (H) [place] [address] [phone] Social History Tobacco Use Types Packs/Day Years Used Date Smoking Tobacco: Every Day Cigarettes 0.3 10 Smokeless Tobacco: Never Comments: 5-8 cigarettes a day Alcohol Use Standard Drinks/Week Comments Not Currently 0 (1 standard drink = 0.6 oz pure alcoho l) sober 16 days Sex Assigned at Date Recorded Female 01/14/2020 10:57 AM DRAFTER COMMERCIAL documented as of this encounter Last [...] be sent through Care Everywhere. Alcohol Withdrawal (Macanese)Hypokalemia (Macanese)Hypomagnesemia, Discharge Instructions (Macanese)documented in this encounter Medications at Time of [...] current or past drug history. PCP: Esthela, [facility] Medical Review of Systems Constitutional: Positive for [...] Prolonged QT Abnormal ECG Rate 80 bpm. CO interval 162 ms. QRS duration 94 ms. [...] Discharge Medications: No discharge medications. Scribe Disclosure: I, Pee Aguirre, am serving as a scribe at 12:03 PM on 08/23/2018 to document services personally performed by Loan Moise PA-C based on my observations and the provider's statements to me. [facility] EMERGENCY DEPARTMENT Loan Moise PA-C 08/23/182015 documented in this encounter Plan of Treatment Upcoming Encounters Date Type Specialty Care Team Description 12/20/2021 Office Visit Wound Care Luis Camara, CALVIN [address] [place] [address] (Reinaldo molina) 01/21/2022 PRE VISIT Gastroenterology Landon Warren, *-*WANDAIN G RECORDS*-* MD Luis Fernando [address] [place] [address] (Reinaldo molina) 01/21/2022 Office Visit Gastroenterology Juanis Levi [address] [place] [address] Luis Fernando Miles MD [address] [place] [address] documented as of this encounter Procedures Procedure [...] qualitative urine (UPT) (08/23/2018 12:38 PM CDT) P athologist Signature HCG Qual Urine Negative NEG^Negati 08/23/2018 [facility] 12:52 PM CDT [facility] Comment: This test is for screening purposes. ??R esults should be interpreted along with the clinical picture. ??Confirmation te sting is available if warranted by ordering [id number], HCG Quantitative Pregna ncy. Specimen Anatomical Collection Method Collection Time Receive d Time (Source) Location / / Volume Laterality Urine specimen 08/23/2018 12:38 9 (specimen) PM CDT 12:43 PM CDT Loan Moise PA-C LAB - URINE ORDERABLES Performing Organization Address City/State/ZIP Code Phon e Number [facility] [address] [place], [place] [address] [facility] [address] [phone] (ABNORMAL) UA with Microscopic (08/23/2018 12:38 PM [facility] [place] Method Time Signature Color Urine Yellow 08/23/2018 [facility] 12:49 PM [facility] Appearance Urine Clear 08/23/2018 [facility] 12:49 PM [facility] Glucose Urine Negative NEG^Negat 08/23/2018 [facility] [place]ula mg/dL 12:49 PM [facility] Bilirubin Urine Negative NEG^Negat 08/23/2018 [facility] [place]ula 12:49 PM [facility] Ketones Urine Negative NEG^Negat 08/23/2018 [facility] paula mg/dL 12:49 PM [facility] Specific [place] 1.017 1.003 - 08/23/2018 [facility] Urine 1.035 12:49 PM [facility] Blood Urine Negative NEG^Negat 08/23/2018 [facility] paula 12:49 PM [facility] pH Urine 7.5 (H) 5.0 - 7.0 08/23/2018 [facility] pH 12:49 PM [facility] Protein Albumin Negative NEG^Negat 08/23/2018 [facility] Urine paula mg/dL 12:49 PM [facility] Urobilinogen 8.0 (H) 0.0 - 2.0 08/23/2018 [facility] mg/dL mg/dL 12:49 PM [facility] Nitrite Urine Negative NEG^Negat 08/23/2018 [facility] [place]ula 12:49 PM [facility] Leukocyte Negative NEG^Negat 08/23/2018 [facility] Esterase Urine paula 12:49 PM [facility] Source Midstream 08/23/2018 [facility] Urine 12:39 PM [facility] WBC Urine <1 0 - 5 08/23/2018 [facility] /HPF 12:49 PM [facility] RBC Urine <1 0 - 2 08/23/2018 [facility] /HPF 12:49 PM [facility] Squamous 1 0 - 1 08/23/2018 [facility] Epithelial /HPF /HPF 12:49 PM [facility] Mucous Urine Present (A) NEG^Negat 08/23/2018 [facility] paula /LPF 12:49 PM [facility] Specimen (Source) Anatomical Collection Method Collection Time Re ceived Time Location / / Volume Laterality Examination of 08/23/2018 12:38 9 midstream urine PM CDT 12:43 PM CDT specimen (procedure) Loan Moise PA-C LAB - URINE ORDERABLES Performing Organization Address City/State/ZIP Code Phon e Number [facility] [address], [place] [address] [facility] [address] [place] [address] [phone] EKG 12-lead, tracing only (08/23/2018 12:25 PM CDT) Patholo gist Method Time Signature Interpretation ECG Click View RADIOLOGY Image link RESULTS to view waveform and result Specimen (Source) Anatomical Collection Method Collection Time Re ceived Time Location / / Volume Laterality 08/23/2018 12:25 PM CDT Loan Moise PA-C ECG ORDERABLES Performing Organization Address City/[facility]/ZIP Code Phon e Number RADIOLOGY RESULTS (ABNORMAL) Comprehensive metabolic panel (08/23/2018 12:22 PM CDT) P athologist Signature Sodium 138 133 - 144 08/23/2018 [facility] mmol/L 12:43 PM [facility] Potassium 3.1 (L) 3.4 - 5.3 08/23/2018 [facility] mmol/L 12:43 PM [facility] Chloride 103 94 - 109 08/23/2018 [facility] mmol/L 12:43 PM [facility] Carbon Dioxide 30 20 - 32 08/23/2018 [facility] mmol/L 12:50 PM [facility] Anion Gap 4 3 - 14 08/23/2018 [facility] mmol/L 12:50 PM [facility] Glucose 123 (H) 70 - 99 08/23/2018 [facility] mg/dL 12:50 PM [facility] Urea Nitrogen 5 (L) 7 - 30 08/23/2018 [facility] mg/dL 12:50 PM [facility] Creatinine 0.57 0.52 - 08/23/2018 [facility] 1.04 mg/dL 12:50 PM [facility] GFR Estimate >90 >60 08/23/2018 [facility] mL/min/{1. 12:50 PM [facility] 73_m2} [facility] Comment: Non GFR Calc Starting 02/03/2018, serum creatinine ba sed estimated GFR (eGFR) will be calculated using the Chronic Kidney Dise [facility] Epidemiology Collaboration (CKD-EPI) equation. GFR Estimate If >90 >60 mL/min/{1.73_m2} 08/23/2018 12 :50 PM [facility] Comment: GFR Calc Starting 02/03/2018, serum creatinine ba sed estimated GFR (eGFR) will be calculated using the Chronic Kidney Dise [facility] Epidemiology Collaboration (CKD-EPI) equation. Calcium 8.8 8.5 - 10.1 08/23/2018 12:50 PM [facility] mg/dL [facility] Bilirubin Total 1.6 (H) 0.2 - 1.3 mg/dL 08/23/2018 12:52 P [facility] Albumin 3.8 3.4 - 5.0 g/dL 08/23/2018 12:52 PM [facility] Protein Total 7.9 6.8 - 8.8 g/dL 08/23/2018 12:52 PM [facility] Alkaline Phosphatase 158 (H) 40 - 150 U/L 08/23/2018 12:52 PM [facility] ALT 192 (H) 0 - 50 U/L 08/23/2018 12:52 PM [facility] AST 242 (H) 0 - 45 U/L 08/23/2018 12:52 PM [facility] Specimen Anatomical Collection Method Collection Time Receive d Time (Source) Location / / Volume Laterality Blood specimen 08/23/2018 12:22 9 (specimen) PM CDT 12:30 PM CDT Loan Moise PA-C LAB - BLOOD ORDERABLES Performing Organization Address City/State/ZIP Code Phon e Number M [place] [address], [place] [address] [facility] [address] [place], [place] [address] [place] [address] (ABNORMAL) Magnesium (08/23/2018 12:22 PM CDT) athologist Signature Magnesium 1.4 (L) 1.6 - 2.3 08/23/2018 [place] mg/dL 12:52 PM [facility] Specimen Anatomical Collection Method Collection Time Receive d Time (Source) Location / / Volume Laterality Blood specimen 08/23/2018 12:22 9 (specimen) PM CDT 12:30 PM CDT Loan Moise PA-C LAB - BLOOD ORDERABLES Performing Organization Address City/[facility]/ZIP [facility] Phon e Number [facility] [address] [place], [place] [address] [place] [address] [address] [place], [place] [address] 7, [facility] [phone] Alcohol level blood (08/23/2018 12:22 PM CDT) athologist Signature Ethanol g/dL <0.01 <0.01 g/dL 08/23/2018 [place] 12:52 PM [facility] Specimen Anatomical Collection Method Collection Time Receive d Time (Source) Location / / Volume Laterality Blood specimen 08/23/2018 12:22 9 (specimen) PM CDT 12:30 PM CDT Loan Moise PA-C LAB - BLOOD ORDERABLES Performing Organization Address City/[facility] e Number [facility] [address] [place], [place] [address] [place] [address] [address] [place], [place] [address] 7, [facility] [phone] Troponin I (08/23/2018 12:22 PM CDT) athologist Signature Troponin I ES <0.015 0.000 - 08/23/2018 [place] 0.045 ug/L 12:54 PM [facility] Comment: The 99th percentile for upper [...] Address City/State/ZIP Code Phon e Number [place] [address] [place], [place] 55[address] [facility] [place] [address] [phone] (ABNORMAL) CBC with platelets differential (08/23/2018 12:22 PM CDT) [facility] Method Time Signature WBC 3.1 (L) 4.0 - 08/23/2018 [facility] 11.0 12:33 PM [facility] 10e9/L [facility] RBC Count 4.22 3.8 - 5.2 08/23/2018 [facility] 10e12/L 12:33 [facility] Hemoglobin 13.7 11.7 - 08/23/2018 [facility] 15.7 g/dL 12:33 PM [facility] Hematocrit 39.6 35.0 - 08/23/2018 [facility] 47.0 % 12:33 [facility] MCV 94 78 - 100 08/23/2018 [facility] fl 12:33 PM [facility] MCH 32.5 26.5 - 08/23/2018 [facility] 33.0 pg 12:33 [facility] MCHC 34.6 31.5 - 08/23/2018 [facility] 36.5 g/dL 12:33 [facility] RDW 12.3 10.0 - 08/23/2018 [facility] 15.0 % 12:33 [facility] Platelet Count 82 (L) 150 - 450 08/23/2018 [facility] 10e9/L 12:33 [facility] Diff Method Automated 08/23/2018 [facility] Method 12:33 [facility] % Neutrophils 53.1 % 08/23/2018 [facility] 12:33 [facility] % Lymphocytes 34.9 % 08/23/2018 [facility] 12:33 [facility] % Monocytes 10.1 % 08/23/2018 [facility] 12:33 PM [facility] % Eosinophils 1.3 % 08/23/2018 [place] 12:33 PM [facility] % Basophils 0.3 % 08/23/2018 [place] 12:33 PM [facility] % Immature 0.3 % 08/23/2018 [place] Granulocytes 12:33 [facility] Nucleated RBCs 0 0 /100 08/23/2018 [place] 12:33 PM [facility] Absolute 1.6 1.6 - 8.3 08/23/2018 [place] Neutrophil 10e9/L 12:33 PM [facility] Absolute 1.1 0.8 - 5.3 08/23/2018 [place] Lymphocytes 10e9/L 12:33 PM [facility] Absolute 0.3 0.0 - 1.3 08/23/2018 [place] Monocytes 10e9/L 12:33 PM [facility] Absolute 0.0 0.0 - 0.7 08/23/2018 [place] Eosinophils 10e9/L 12:33 [facility] Absolute 0.0 0.0 - 0.2 08/23/2018 [place] Basophils 10e9/L 12:33 PM [facility] Abs Immature 0.0 0 - 0.4 08/23/2018 [place] Granulocytes 10e9/L 12:33 [facility] Absolute 0.0 08/23/2018 [place] Nucleated RBC 12:33 PM [facility] Specimen Anatomical Collection Method Collection Time Receive d Time (Source) Location / / Volume Laterality Blood specimen 08/23/2018 12:22 9 (specimen) PM CDT 12:30 PM CDT Loan Moise PA-C LAB - BLOOD ORDERABLES Performing Organization Address City/State/ZIP Code Phon e Number [facility] [address] [place] [address] [facility] [address] [phone] documented in this encounter Visit Diagnoses Diagnosis [...] documented as of this encounter Care Teams Radiation Oncologist Relationship Specialty Start Date End Date Clinic, [facility] PCP - General 01/20/18 06/28/[address] [place] [address] Tatyana Haas APRN ESCORT CAR DRIVER Assigned PCP 08/02/18 01/29/20 [facility] [address] [facility] [address] [place] [address] documented as of this encounter
--- OUTSIDE RECORDS SUMMARY | 2021-12-13 12:34 | XMS_ITS | Encounter Summary ---
:1980 Author Organization [place] Address [facility] [place] [address] Care Team Providers Name Role Phone Clinic, [facility] Primary Care Provide r Tatyana Haas Sanju NURSE PRACTITIONER PER DIEM CAREER SERVICES OFFICER Unavailable [phone] Reason for Visit Reason Onset Date Comments No Show 12/28/2018 Encounter Details Date Type Department Care Team Description 12/28/2018 Office Visit [facility] Chon NO SHOW (P rimary Dx) Clinic Ashly Russ PA-C [address] [place] [address] [address] [facility] [address] [place] [address] [phone] Social History Tobacco Use Types Packs/Day Years Used Date Smoking Tobacco: Every Day Cigarettes 0.3 10 Smokeless Tobacco: Never Comments: 5-8 cigarettes a day Alcohol Use Standard Drinks/Week Comments Not Currently 0 (1 standard drink = 0.6 oz pure alcoho l) sober 16 days Sex Assigned at Date Recorded Female 01/14/2020 10:57 AM RAIL ENGINEER documented as of this encounter Progress Notes Alexander Linda MA - 12/28/2018 10:40 AM CST This patient was a no show for this scheduled appointment. ENGINEER documented in this encounter Plan of Treatment Upcoming Encounters Date Type Specialty Care Team Description 12/20/2021 Office Visit Wound Care Luis Camara DPM [address] [place], [place] [phone] (Wo rk) 01/21/2022 PRE VISIT Gastroenterology Landon Warren, *-*INCOMIN G RECORDS*-* MD Luis Fernando [address] [phone] (Wo rk) 01/21/2022 Office Visit Gastroenterology Juanis Levi [address] [place] [phone] Luis Fernando Miles MD [address] [phone] documented as of this encounter Visit Diagnoses Diagnosis NO SHOW - Primary documented in this encounter Additional Health Concerns Assessment Noted Time PHQ-9 Depression Total Score: 10 07/08/2018 1:27 PM CD T documented as of this encounter Care Teams Bar Examiner Relationship Specialty Start Date End Date Clinic, [facility] PCP - General 01/20/18 06/28/[address] [place] [address] Tatyana Haas APRN CAREER SERVICES OFFICER Assigned PCP 08/02/18 01/29/20 [place] [facility] [address] [facility] [address] [place] [address] documented as of this encounter
--- OUTSIDE RECORDS SUMMARY | 2021-12-13 12:34 | XMS_ITS | Encounter Summary ---
:1980 Author Organization [place] Address [address] [facility] [place] [address] Care Team Providers Name Role Phone Clinic, [facility] Primary Care Provide r Guerita Haasdia Sanju WOOD PRESERVING PLANT LABORER NURSING CLERK Unavailable [phone] Encounter Details Date Type Department Care [...] Date Recorded Female 01/14/2020 10:57 AM IT SYSTEMS ANALYST documented as of this encounter Plan of Treatment Upcoming Encounters Date Type Specialty Care Team Description 12/20/2021 Office Visit Wound Care Luis Camara DPM [address] [place], [place] [address] (Wo rk) 01/21/2022 PRE VISIT Gastroenterology Landon Warren, *-*HEATHER Barriga RECORDS*-* MD Luis Fernando [address] [facility] [address] [place], [place] [address] (Wo rk) 01/21/2022 Office Visit Gastroenterology Juanis Levi [address] [place] [address] Luis Fernando Miles MD 6 [facility] [address] [place], [place] [address] documented as of this encounter Visit Diagnoses Not on filedocumented in this encounter Additional Health Concerns Assessment Noted Time PHQ-9 Depression Total Score: 10 07/08/2018 1:27 PM CD T documented as of this encounter Care Teams Vascular Technologist Relationship Specialty Start Date End Date Clinic, [facility] PCP - General 01/20/18 06/28/[address] [place] [address] Tatyana Haas APRN NURSING CLERK Assigned PCP 08/02/18 01/29/20 [facility] [address] [facility] [address] [place], [place] [address] documented as of this encounter
--- OUTSIDE RECORDS SUMMARY | 2021-12-13 12:34 | XMS_ITS | Encounter Summary ---
:1980 Author Organization [place] Address [address] [place] [address] Care Team Providers Name Role Phone Clinic, [facility] Primary Care Provide r Guerita Haasdia Sanju ARTIFICIAL CANDY MAKER NETWORK TECHNICAL ANALYST Unavailable [phone] Encounter Details Date Type Department Care [...] Date Recorded Female 01/14/2020 10:57 AM PEDIATRIC REGISTERED NURSE COVID-19 Exposure Response Date Recorded In the last month, have you been in contact with No / Unsure 06/20/2019 10:01 AM CDT someone who was confirmed or suspected to have Coronavirus / COVID-19? documented as of this encounter Plan of Treatment Upcoming Encounters Date Type Specialty Care Team Description 12/20/2021 Office Visit Wound Care Luis Camara DPM [address] [place], [place] [address] (Reinaldo molina) 01/21/2022 PRE VISIT Gastroenterology Landon Warren, *-*WANDAIN G RECORDS*-* MD Luis Fernando 516 [facility] [address] [place] [address] (Wo rk) 01/21/2022 Office Visit Gastroenterology Juanis Levi [address] [place] [address] Luis Fernando Miles MD 516 [facility] [address] [place], [place] [address] documented as of this encounter Visit Diagnoses Not on filedocumented in this encounter Additional Health Concerns Assessment Noted Time PHQ-9 Depression Total Score: 10 07/08/2018 1:27 PM CD T documented as of this encounter Care Teams Contract Implementation Analyst Relationship Specialty Start Date End Date Clinic, [facility] PCP - General 01/20/18 06/28/[address] [place] [id number] Tatyana Haas APRN NETWORK TECHNICAL ANALYST Assigned PCP 08/02/18 01/29/20 [facility] [address] [facility] [address] [place] [address] documented as of this encounter
--- OUTSIDE RECORDS SUMMARY | 2021-12-13 12:34 | XMS_ITS | Encounter Summary ---
:1980 Author Organization [place] Address [address] [facility] [place] [address] Care Team Providers Name Role Phone Clinic, [facility] Primary Care Provide r Tatyana Haas Sanju CO FOUNDER AND CHAIRMAN COMMERCIAL ACCOUNT OFFICER Unavailable [phone] Encounter Details Date Type Department Care [...] Date Recorded Female 01/14/2020 10:57 AM FIELD CANE SCALER documented as of this encounter Plan of Treatment Upcoming Encounters Date Type Specialty Care Team Description 12/20/2021 Office Visit Wound Care Luis Camara DPM [address] [place] [address] (Wo rk) 01/21/2022 PRE VISIT Gastroenterology Landon Warren, *-*HEATHER Barriga RECORDS*-* MD Luis Fernando [address] [address] (Wo rk) 01/21/2022 Office Visit Gastroenterology Juanis Levi [address] [place] [address] Luis Fernando Miles MD 6 [facility] [address] [place], [place] [address] documented as of this encounter Visit Diagnoses Not on filedocumented in this encounter Additional Health Concerns Assessment Noted Time PHQ-9 Depression Total Score: 10 07/08/2018 1:27 PM CD T documented as of this encounter Care Teams Java User Interface Developer Relationship Specialty Start Date End Date Clinic, [facility] PCP - General 01/20/18 06/28/[address] [place] [address] Tatyana Haas APRN COMMERCIAL ACCOUNT OFFICER Assigned PCP 08/02/18 01/29/20 [facility] [address] [facility] [address] [place], [place] [address] documented as of this encounter
--- OUTSIDE RECORDS SUMMARY | 2021-12-13 12:34 | XMS_ITS | Encounter Summary ---
:1980 Author Organization [place] Address [address] [place] [address] Care Team Providers Name Role Phone Clinic, [facility] Primary Care Provide r Encounter [...] Date Recorded Female 01/14/2020 10:57 AM ROCK WOOL INSULATOR documented as of this encounter Plan of Treatment Upcoming Encounters Date Type Specialty Care Team Description 12/20/2021 Office Visit Wound Care Luis Camara, [place] [address] [place], [place] [address] (Wo rk) 01/21/2022 PRE VISIT Gastroenterology Landon Warren, *-*WANDAIN G RECORDS*-* MD Luis Fernando 516 [facility] [address] [place], [place] [address] (Wo rk) 01/21/2022 Office Visit Gastroenterology Juanis Levi [address] [place] [phone] Luis Fernando Miles MD 516 [facility] [address] [place] [address] documented as of this encounter Visit Diagnoses Not on filedocumented in this encounter Additional Health Concerns Assessment Noted Time PHQ-9 Depression Total Score: 10 07/08/2018 1:27 PM CD T documented as of this encounter Care Teams Test Rider Relationship Specialty Start Date End Date Clinic, [facility] PCP - General 01/20/18 06/28/[address] [place] [address] documented as of this encounter
--- OUTSIDE RECORDS SUMMARY | 2021-12-13 12:34 | XMS_ITS | Encounter Summary ---
:1980 Author Organization [place] Address [facility] [place] [address] Care Team Providers Name Role Phone Clinic, [facility] Primary Care Provide r Tatyana Haas Sanju PRINTED CIRCUIT BOARD DRAFTER GASOLINE ENGINE ASSEMBLER Unavailable [phone] Reason for Visit Reason Onset Date Comments No Show 02/16/2019 Encounter Details Date Type Department Care Team Description 02/16/2019 Office Visit [facility] NO SHOW (P rimary Dx) Clinic Ashly Russ PA-C [address] [place] [address] [place] [address] [address] [facility] [address] [place] [address] [phone] Social History Tobacco Use Types Packs/Day Years Used Date Smoking Tobacco: Every Day Cigarettes 0.3 10 Smokeless Tobacco: Never Comments: 5-8 cigarettes a day Alcohol Use Standard Drinks/Week Comments Not Currently 0 (1 standard drink = 0.6 oz pure alcoho l) sober 16 days Sex Assigned at Date Recorded Female 01/14/2020 10:57 AM SQL SERVER BI DEVELOPER documented as of this encounter Progress Notes Hillary Sears MA - 02/16/2019 1:20 PM CST . This patient was a no show for this scheduled appointment. SERVER BI DEVELOPER documented in this encounter Plan of Treatment Upcoming Encounters Date Type Specialty Care Team Description 12/20/2021 Office Visit Wound Care Luis Camara DPM [address] [place] [address] (Wo rk) 01/21/2022 PRE VISIT Gastroenterology Landon Warren, *-*WANDAIN G RECORDS*-* MD Luis Fernando [address] [facility] [address] [place] [address] (Wo rk) 01/21/2022 Office Visit Gastroenterology Juanis Levi [address] [place] [phone] Luis Fernando Miles MD [address] [id number] documented as of this encounter Visit Diagnoses Diagnosis NO SHOW - Primary documented in this encounter Additional Health Concerns Assessment Noted Time PHQ-9 Depression Total Score: 10 07/08/2018 1:27 PM CD T documented as of this encounter Care Teams Associate Professor Of Geology Relationship Specialty Start Date End Date Clinic, [facility] PCP - General 01/20/18 06/28/[address] [place] [address] Tatyana Haas, PRINTED CIRCUIT BOARD DRAFTER GASOLINE ENGINE ASSEMBLER Assigned PCP 08/02/18 01/29/20 [place] [facility] [address] COUNT INCLUDES THE [facility] [address]. [address] [place] [address] documented as of this encounter
--- OUTSIDE RECORDS SUMMARY | 2021-12-13 12:35 | XMS_ITS | Encounter Summary ---
:1980 Author Organization [place] Address [address] [place] [address] Care Team Providers Name Role Phone Clinic, [facility] Primary Care Provide r Tatyana Haas DIAMOND SORTER RETAIL CLERK Unavailable [phone] Stephani Pina DIAMOND SORTER RETAIL CLERK Unavailable Reason for Visit Reason Onset Date Comments Lodging Plus 07/04/2018 Encounter Details Date Type Department Care Team Description 07/04/2018 Telephone [facility] Generic, Behavioral Lod ging Plus Behavioral [facility] In abigail Rivera MD [address] [place] [phone] Social History Tobacco Use Types Packs/Day Years Used Date Smoking Tobacco: Every Day Cigarettes 0.1 10 Smokeless Tobacco: Never Comments: 5 cigarettes a day Alcohol Use Standard Drinks/Week Comments Yes 0 (1 standard drink = 0.6 oz pure alcoho l) binge drinks Sex Assigned at Date Recorded Female 01/14/2020 10:57 AM 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 Telephone Encounter - Scout Jarvis LADC - 07/08/2018 1:00 PM CDT Attn: Central Intake ?? This patient was admitted to the LP program on 07/08/2018. Please send the [facility] referral paperwork to [facility] to activate the authorization for the LP program. Telephone Encounter - Marlena Trujillo LADC - 07/06/2018 1:32 PM CDT SBAR Name: Stephani King Date of : 1980 Age: [age] year old Gender: female Referral Source: Self Referral GIOVANNA: N/A Insurance: [facility]: [facility] Precipitating Event: Treatment due to own awareness [...] child protection involvement, Unemployed and Stable finances [place] Suicide Risk Status: Past month: 0. - [...] upon L+ admit so Intake can get [facility] auth. fb Telephone Encounter - Mary Ellen Larsen LICSW - 07/06/2018 10:11 AM CDT LP SCREEN TELEPHONE NOTE Stephani King paperwork was reviewed by JANETT York and the patient was deemed ELIGIBLE for the LP program. Medical: The patient is medically stable and did not appear to need a medical screening with the LP RN at this time. Insurance: [facility] MA/PMAP - The admitting counselor NEEDS to notify [facility] of the patient's admission to treatment on the day/evening of the admission with a routed telephone note. After being informed of the admission date for treatment [facility]TA[facility] will need to fill out the [facility] referral forms with the patient's start date and then fax the [facility] referral forms to [facility] to activate the authorization for treatment. [...] number for the patient is: [phone] Mary Ellen Franklin LICSW 07/06/2018 Telephone Encounter - Abrahan Waldrop - 07/04/2018 6:57 PM CDT S: [facility] ED MD called at [address] [...] 2mg. Pt denies SI. A: Voluntary. R: scalloper paged at 1918 to review for placement on 3A/[place]. scalloper approved admission at 1923.Unit notified at 2000. ED notified at 2007. documented in this encounter Plan of Treatment Upcoming Encounters Date Type Specialty Care Team Description 12/20/2021 Office Visit Wound Care Luis Camara DPM [address] [place], [place] [phone] (Wo rk) 01/21/2022 PRE VISIT Gastroenterology Landon Warren, *-*HEATHER G RECORDS*-* MD Luis Fernando [address] [place] [phone] (Wo rk) 01/21/2022 Office Visit Gastroenterology Juanis Levi [address] [place] [phone] Luis Fernando Miles MD [address] [place] [phone] documented as of this encounter Visit Diagnoses Diagnosis Alcohol abuse, continuous - Primary Nondependent alcohol abuse, continuous d rinking behavior documented in this encounter Care Teams Process Worker Relationship Specialty Start Date End Date Clinic, [facility] PCP - General 01/20/18 06/28/21 [facility] [place] [address] Tatyana Haas APRN RETAIL CLERK Assigned PCP 08/02/18 01/29/20 [facility] [address] [facility] [address]. [address] [place] [address] Stephani Pina APRN RETAIL CLERK Assigned PCP 01/30/20 12/30/[address] [place] [address] 700 [place] [address] documented as of this encounter
--- OUTSIDE RECORDS SUMMARY | 2021-12-13 12:35 | XMS_ITS | Encounter Summary ---
:1980 Author Organization [place] Address [address] [place] [address]. 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 HPI Stephain King is a 37 year old female with a history of anxiety, depression, chronic hepatitis C, and alcohol abuse who presents for evaluation of left knee pain. Of note, patient is in treatment at [facility] for alcohol abuse. She reports she's had pain in her left knee for the past 4 days, around the same time she began working out at the [facility] gym. Patient denies any specific injury toher [...] So Luciano MD; Location: [facility] OR ??? OIL WELL DIRECTIONAL SURVEYOR SURGERY ??? ORTHOPEDIC SURGERY ??? THORACIC SURGERY [...] IEl, am serving as a trained medical device engineer to document services personally performed by Donnell Shook MD, based on the provider's statements to me. IDonnell MD, was physically present and have reviewed and verified the accuracy of this note documented by [place]. 07/19/2018 [facility], EMERGENCY DEPARTMENT Jona Shook MD 07/19/18 1147 documented in this encounter Plan of Treatment Upcoming Encounters Date Type Specialty Care Team Description 12/20/2021 Office Visit Wound Care Luis Camara, [place] [address] [place] [address] (Wo rk) 01/21/2022 PRE VISIT Gastroenterology Landon Warren, *-*WANDAIN G RECORDS*-* MD Luis Fernando [address] [place] [address] (Wo rk) 01/21/2022 Office Visit Gastroenterology Juanis Levi [address] [place] [phone] Luis Fernando Miles MD [address] [place] [address] documented as of this encounter Procedures Procedure [...] documented as of this encounter Care Teams Net Technical Architect Relationship Specialty Start Date End Date Clinic, [facility] PCP - General 01/20/18 06/28/21 [address] [place] [address] documented as of this encounter
--- OUTSIDE RECORDS SUMMARY | 2021-12-13 12:35 | XMS_ITS | Encounter Summary ---
:1980 Author Organization [place] Address [facility] [place] [address] Care Team Providers Name Role Phone Clinic, [facility] Primary Care Provide r Reason for Visit Reason Comments Chest Pain Encounter Details Date Type Department Care Team Description 01/20/2018 - Emergency [facility] Marycarmen Banks Alcohol withdrawal syndrome without complication (H); 01/21/2018 [facility] Emergency MD Angelina Anxiety Dept [facility] [address] [place] [address] [facility] [phone] [place], [place] [phone] (Wo rk) Social History Tobacco Use Types Packs/Day Years Used Date Smoking Tobacco: Every Day Cigarettes 0.1 10 Smokeless Tobacco: Never Comments: 5 cigarettes a day Alcohol Use Standard Drinks/Week Comments Yes 0 (1 standard drink = 0.6 oz pure alcoho l) binge drinks Sex Assigned at Date Recorded Female 01/14/2020 10:57 AM TRANSIT SURVEY WORKER documented as of this encounter Last Filed Vital Signs Vital Sign Reading Time Taken Comments Blood Pressure 135/80 01/21/2018 12:30 AM TRANSIT SURVEY WORKER Pulse 84 01/20/2018 10:52 PM TRANSIT SURVEY WORKER Temperature 36.8 ??C (98.2 ??F) 01/20/2018 10:23 PM TRANSIT SURVEY WORKER Respiratory Rate 17 01/21/2018 12:30 AM TRANSIT SURVEY WORKER Oxygen Saturation 98% 01/21/2018 12:30 AM TRANSIT SURVEY WORKER Inhaled Oxygen Concentration - - Weight - [...] CST IV cannula removed from RAC intact SIT SURVEY WORKER Shukri Fuentes RN - 01/20/2018 10:24 PM [...] Palpations Time: 2218 Vent. Rate 98 bpm. MD interval 150. QRS duration 86. QT/QTc 376/480. [...] EMERGENCY DEPARTMENT Marycarmen Banks MD 01/21/18 0058 SIT SURVEY WORKER documented in this encounter Plan of Treatment Upcoming Encounters Date Type Specialty Care Team Description 12/20/2021 Office Visit Wound Care Luis Camara DPM [address] [place] [address] (Reinaldo rk) 01/21/2022 PRE VISIT Gastroenterology Landon Warren, *-*HEATHER Barriga RECORDS*-* MD Luis Fernando [address] [facility] [address]A [place] [address] (Reinaldo rk) 01/21/2022 Office Visit Gastroenterology Juanis Levi [facility] [place] [phone] Luis Fernando Miles MD 6 [facility] [address] [place] [address] documented as of this encounter Procedures Procedure Name Priority Date/Time Associated Comments Diagnosis XR CHEST 2 VIEWS STAT 01/20/2018 10:58 Results for this PM TRANSIT SURVEY WORKER procedure are i n the results section. CBC WITH PLATELETS & STAT 01/20/2018 10:36 Res ults for this DIFFERENTIAL PM TRANSIT SURVEY WORKER procedure are i n the results section. TROPONIN I STAT 01/20/2018 10:36 Results for this PM TRANSIT SURVEY WORKER procedure are i n the results section. MAGNESIUM Routine 01/20/2018 10:36 Results for this PM TRANSIT SURVEY WORKER procedure are i n the results section. D DIMER QUANTITATIVE Routine 01/20/2018 10:36 Res ults for this PM TRANSIT SURVEY WORKER procedure are i n the results section. COMPREHENSIVE STAT 01/20/2018 10:36 Results fo r this METABOLIC PANEL PM TRANSIT SURVEY WORKER procedure ar e in the results section. ETHYL ALCOHOL LEVEL Routine 01/20/2018 10:36 Resu lts for this PM TRANSIT SURVEY WORKER procedure are i n the results section. EKG 12-LEAD, TRACING STAT 01/20/2018 10:18 Res ults for this ONLY PM TRANSIT SURVEY WORKER procedure are i n the results section. documented in this encounter Results Chest XR, PA & LAT (01/20/2018 10:58 PM TRANSIT SURVEY WORKER) Anatomical Region Laterality Modality Chest Digital Radiography Specimen (Source) Anatomical Location Collection Method / Collectio n Time Received Time / Laterality Volume Impressions 01/20/2018 11:03 PM TRANSIT SURVEY WORKER IMPRESSION: No radiographic evidence of acute chest abnormality. GIOVANNI RHODES MD Narrative 01/20/2018 11:03 PM TRANSIT SURVEY WORKER CHEST TWO VIEWS 01/20/2018 10:58 PM HISTORY: [...] IMAGING ORDER JEFFERY Magnesium (01/20/2018 10:36 PM TRANSIT SURVEY WORKER) athologist Signature Magnesium 2.1 1.6 - 2.3 01/20/2018 [facility] mg/dL 11:02 PM [facility] Specimen Anatomical Collection Method Collection Time Receive d Time (Source) Location / / Volume Laterality 01/20/2018 10:36 01/20/2018 PM TRANSIT SURVEY WORKER 10:37 PM TRANSIT SURVEY WORKER Marycarmen Banks MD LAB - BLOOD ORDERABLES Performing Organization Address City/[facility]/ZIP [facility] Phon e Number [facility] [address] [place], [place] [address] [phone] Alcohol ethyl (01/20/2018 10:36 PM TRANSIT SURVEY WORKER) athologist [facility] Ethanol g/dL <0.01 <0.01 g/dL 01/20/2018 [place] 11:02 PM [facility] Specimen Anatomical Collection Method Collection Time Receive d Time (Source) Location / / Volume Laterality 01/20/2018 10:36 01/20/2018 PM TRANSIT SURVEY WORKER 10:37 PM TRANSIT SURVEY WORKER Marycarmen Banks MD LAB - BLOOD ORDERABLES Performing Organization Address City/[facility] Phon e Number [facility] [address] [place], [place] [address] [place] [address] [phone] D dimer quantitative (01/20/2018 10:36 PM TRANSIT SURVEY WORKER) athologist Signature D Dimer 0.4 0.0 - 0.50 01/20/2018 [facility] ug/ml FEU 10:56 PM [facility] Comment: This D-dimer assay is [...] / Volume Laterality 01/20/2018 10:36 01/20/2018 PM TRANSIT SURVEY WORKER 10:37 PM TRANSIT SURVEY WORKER Marycarmen Banks MD LAB - BLOOD ORDERABLES Performing Organization Address [facility] e Number [facility] [address] [place], [place] [address] [address], [facility] [phone] Troponin I (01/20/2018 10:36 PM TRANSIT SURVEY WORKER) athologist Signature Troponin I ES <0.015 0.000 - 01/20/2018 [place] 0.045 ug/L 11:02 PM [facility] Comment: The 99th percentile for upper reference range is 0.045 ug/L. ??Troponin values in the range of 0.045 - 0.120 ug/L may b e associated with risks of adverse clinical events. Specimen Anatomical Collection Method Collection Time Receive d Time (Source) Location / / Volume Laterality Blood specimen 01/20/2018 10:36 8 (specimen) PM TRANSIT SURVEY WORKER 10:37 PM TRANSIT SURVEY WORKER Marycarmen Banks MD LAB - BLOOD ORDERABLES Performing Organization Address [facility] e Number [place] [address] [address] [place], [place] [address] [place] [address] [address] [place], [place] [address], [facility] [phone] (ABNORMAL) Comprehensive metabolic panel (01/20/2018 10:36 PM TRANSIT SURVEY WORKER) athologist Signature Sodium 136 133 - 144 01/20/2018 [place] mmol/L 11:02 PM [facility] Potassium 3.5 3.4 - 5.3 01/20/2018 [place] mmol/L 11:02 PM [facility] Chloride 102 94 - 109 01/20/2018 [place] mmol/L 11:02 PM [facility] Carbon Dioxide 28 20 - 32 01/20/2018 [place] mmol/L 11:02 PM [facility] Anion Gap 6 3 - 14 01/20/2018 [place] mmol/L 11:02 PM [facility] Glucose 103 (H) 70 - 99 01/20/2018 [facility] mg/dL 11:02 PM [facility] Urea Nitrogen 7 7 - 30 01/20/2018 [facility] mg/dL 11:02 PM [facility] Creatinine 0.76 0.52 - 01/20/2018 [facility] 1.04 mg/dL 11:02 PM [facility] GFR Estimate 86 >60 01/20/2018 [place] mL/min/1.7 11:[address] Comment: Non GFR Calc GFR Estimate If >90 >60 mL/min/1.7m2 01/20/2018 11:[address] [facility] Comment: GFR Calc Calcium 8.8 8.5 - 10.1 01/20/2018 11:02 PM [facility] mg/dL [facility] Bilirubin Total 1.5 (H) 0.2 - 1.3 mg/dL 01/20/2018 11:02 P [facility] Albumin 3.9 3.4 - 5.0 g/dL 01/20/2018 11:[address] [facility] Protein Total 8.3 6.8 - 8.8 g/dL 01/20/2018 11:02 PM [facility] Alkaline Phosphatase 129 40 - 150 U/L 01/20/2018 11:02 PM [facility] ALT 202 (H) 0 - 50 U/L 01/20/2018 11:02 PM [facility] AST 266 (H) 0 - 45 U/L 01/20/2018 11:02 PM [facility] Specimen Anatomical Collection Method Collection Time Receive d Time (Source) Location / / Volume Laterality Blood specimen 01/20/2018 10:36 8 (specimen) PM TRANSIT SURVEY WORKER 10:37 PM [facility] Marycarmen Banks MD LAB - BLOOD ORDERABLES Performing Organization Address City/State/ZIP Code Phon e Number [facility] [address] [place], [place] [address] [facility] [address] [place] [address], [facility] [phone] (ABNORMAL) CBC with platelets differential (01/20/2018 10:36 PM [facility]) [facility] gist Method Time Signature WBC 5.0 4.0 - 01/20/2018 [facility] 11.0 10:43 PM [facility] 10e9/L [facility] RBC Count 4.58 3.8 - 5.2 01/20/2018 [facility] 10e12/L 10:43 PM [facility] Hemoglobin 15.3 11.7 - 01/20/2018 [facility] 15.7 g/dL 10:43 PM [facility] Hematocrit 44.9 35.0 - 01/20/2018 [facility] 47.0 % 10:43 [facility] MCV 98 78 - 100 01/20/2018 [facility] fl 10:43 [facility] MCH 33.4 (H) 26.5 - 01/20/2018 [facility] 33.0 pg 10:43 PM [facility] MCHC 34.1 31.5 - 01/20/2018 [facility] 36.5 g/dL 10:43 [facility] RDW 11.8 10.0 - 01/20/2018 [facility] 15.0 % 10:43 PM [facility] Platelet Count 170 150 - 450 01/20/2018 [facility] 10e9/L 10:43 PM [facility] Diff Method Automated 01/20/2018 [facility] Method 10:43 PM [facility] % Neutrophils 61.7 % 01/20/2018 [facility] 10:43 PM [facility] % Lymphocytes 28.4 % 01/20/2018 [facility] 10:43 [facility] % Monocytes 7.1 % 01/20/2018 [facility] 10:43 [facility] % Eosinophils 2.2 % 01/20/2018 [facility] 10:43 [facility] % Basophils 0.4 % 01/20/2018 [facility] 10:43 [facility] % Immature 0.2 % 01/20/2018 [facility] Granulocytes 10:43 [facility] Nucleated RBCs 0 0 /100 01/20/2018 [facility] 10:43 [facility] Absolute 3.1 1.6 - 8.3 01/20/2018 [facility] Neutrophil 10e9/L 10:43 PM [facility] Absolute 1.4 0.8 - 5.3 01/20/2018 [facility] Lymphocytes 10e9/L 10:43 PM [facility] Absolute 0.4 0.0 - 1.3 01/20/2018 [facility] Monocytes 10e9/L 10:43 PM [facility] Absolute 0.1 0.0 - 0.7 01/20/2018 [facility] Eosinophils 10e9/L 10:43 PM [facility] Absolute 0.0 0.0 - 0.2 01/20/2018 [facility] Basophils 10e9/L 10:43 PM [facility] Abs Immature 0.0 0 - 0.4 01/20/2018 [facility] Granulocytes 10e9/L 10:43 PM [facility] Absolute 0.0 01/20/2018 [facility] Nucleated RBC 10:43 PM [facility] Specimen Anatomical Collection Method Collection Time Receive d Time (Source) Location / / Volume Laterality Blood specimen 01/20/2018 10:36 8 (specimen) PM TRANSIT SURVEY WORKER 10:37 PM TRANSIT SURVEY WORKER Marycarmen Banks MD LAB - BLOOD ORDERABLES Performing Organization Address City/State/ZIP Code Phon e Number [place] [address] [place] [address] [phone] EKG 12-lead, tracing only (01/20/2018 10:18 PM TRANSIT SURVEY WORKER) [facility] gist Method Time Signature Interpretation ECG Click View RADIOLOGY Image link RESULTS to view waveform and result Specimen (Source) Anatomical Collection Method Collection Time Re ceived Time Location / / Volume Laterality 01/20/2018 10:18 PM TRANSIT SURVEY WORKER Marycarmen Banks MD ECG ORDERABLES Performing Organization Address City/State/ZIP [facility] Phon e Number RADIOLOGY RESULTS documented in [...] 1,000 mLs 1000 mL/hr Intravenous, 1,000 mL, TRANSIT SURVEY WORKER ONCE, at 1,000 mL/hr, Administer over 1 Hours, On 01/20/18 at 2256, For 1 dose diphenhydrAMINE (BENADRYL) injection 25 mg Given 01/20/2018 11:36 PM TRANSIT SURVEY WORKER 25 mg 25 mg, Intravenous, ONCE, On 01/20/18 at 2330, For 1 dose, For ordered IV doses 1-50 mg, give IV Push undiluted. Give each 25mg over a minimum of 1 minute. Extend in non-emergency LORazepam (ATIVAN) injection 1 mg Given 01/20/2018 10:48 PM TRANSIT SURVEY WORKER 1 mg 1 mg, Intravenous, ONCE, On 01/20/18 at 2242, For 1 dose, For IV PUSH: Dilute with equal volume of NS. For ordered IV doses 0.1-4 mg give IV Push. Administer each 2mg over 1-5 minutes. multivitamin w/minerals (THERA-VIT-M) Given 01/20/2018 11:34 PM TRANSIT SURVEY WORKER 1 tablet tablet 1 tablet 1 tablet, Oral, ONCE, On 01/20/18 at 2330, For 1 dose ondansetron (ZOFRAN) injection 4 mg Given 01/20/2018 10:48 PM TRANSIT SURVEY WORKER 4 mg 4 mg, Intravenous, ONCE, Administer over 2-5 Minutes, On 01/20/18 at 2242, For 1 dose, Irritant. For ordered IV doses 0.1-4 mg, give IV Push undiluted over 2-5 minutes. prochlorperazine (COMPAZINE) injection 5 mg Given 01/20/2018 11:35 PM TRANSIT SURVEY WORKER 5 mg 5 mg, Intravenous, ONCE, Administer over 1-2 Minutes, On 01/20/18 at 2330, For 1 dose, For ordered IV doses 0.1-10 mg, give IV Push undiluted. Each 5mg over 1 minute. vitamin B1 (THIAMINE) tablet 100 mg Given 01/20/2018 11:35 PM TRANSIT SURVEY WORKER 100 mg 100 mg, Oral, ONCE, On 01/20/18 at 2330, For 1 dose documented in this encounter Active and Recently Administered Medications Times are shown in TRANSIT SURVEY WORKER. Scheduled Medication Order 01/19/2018 01/20/2018 01/21/2018 0.9% [...] Anali Castro RN) 1 mg, Intravenous, ONCE, Fri01/20/18 at 2242, For 1 dose, For [...] vitamin B1 (THIAMINE) tablet 100 mg (COMPLETED) 2335 (Given - Provider: Anali Castro, RN) 100 mg, Oral, ONCE, On Fri01/20/18 at 2330, For 1 dose documented in this encounter Care Teams Stock Checkerer Relationship Specialty Start Date End Date Clinic, [facility] PCP - General 01/20/18 06/28/[address] [place] [address] documented as of this encounter
--- OUTSIDE RECORDS SUMMARY | 2021-12-13 12:35 | XMS_ITS | Encounter Summary ---
:1980 Author Organization [place] Address [facility] [place] [address] Care Team Providers Name Role Phone Clinic, [facility] Primary Care Provide r Reason for Visit Reason Comments Alcohol Problem Encounter Details Date Type Department Care Team Description 05/04/2018 Emergency [facility] Christopher Carrion Al coholic intoxication without complication (H); [facility] Ele[facility]ated LFTs Dept [facility] [address] [place], [place] [address] [id number] [place] [address] [place] [address] (Wo rk) Social History Tobacco Use Types Packs/Day Years Used Date Smoking Tobacco: Every Day Cigarettes 0.1 10 Smokeless Tobacco: Never Comments: 5 cigarettes a day Alcohol Use Standard Drinks/Week Comments Yes 0 (1 standard drink = 0.6 oz pure alcoho l) binge drinks Sex Assigned at Date Recorded Female 01/14/2020 10:57 AM [employer] documented as of this encounter Last [...] until I get to the room This handbook writer kindly directed patient and was told [...] accompanied to the ED by mother PCP: [facility] Marital Status: Smoking status: current every [...] presenting to the emergency department accompanied by [id number] for evaluation of an alcohol problem. VS [...] agreeable towards. Patient will be transferred to [facility] for further treatment of her symptoms. [...] 05/04/2018 to document services personally performed by Chrisotpher Carrion MD based on my observations and the provider's statements to me. Leydi Dye 05/04/2018 [facility] EMERGENCY DEPARTMENT Christopher Carrion MD 05/05/18 0019 documented in this encounter Plan of Treatment Upcoming Encounters Date Type Specialty Care Team Description 12/20/2021 Office Visit Wound Care Luis Camara DPM [address] [place], [place] [id number] (Reinaldo molina) 01/21/2022 PRE VISIT Gastroenterology Landon Warren, *-*HEATHER Barriga RECORDS*-* MD Luis Fernando [address] [place], [place] [phone] (Reinaldo molina) 01/21/2022 Office Visit Gastroenterology AmitaJuanis karimi [address] [place] [phone] Luis Fernando Miles MD [address] [facility] [address] [place] [address] documented as of this encounter Procedures Procedure [...] Signature Magnesium 2.0 1.6 - 2.3 05/04/[address] [facility] mg/dL 9:02 PM T [facility] Specimen Anatomical Collection Method Collection Time Receive d Time (Source) Location / / Volume Laterality Blood specimen 05/04/2018 8:30 PM 019 8:42 (specimen) CDT PM CDT Christopher Carrion MD LAB - BLOOD ORDERABLES Performing Organization Address City/State/ZIP Code Phon e Number M [facility] [address] [address] [facility] [address] [address] [address] [phone] (ABNORMAL) Comprehensive metabolic panel (05/04/2018 8:30 PM CDT) athologist Signature Sodium 139 133 - 144 05/04/2018 [place] mmol/L 8:54 PM CDT [facility] Potassium 3.2 (L) 3.4 - 5.3 05/04/2018 [place] mmol/L 8:54 PM [facility] Chloride 103 94 - 109 05/04/2018 [place] mmol/L 8:54 PM [facility] Carbon Dioxide 28 20 - 32 05/04/2018 [facility] mmol/L 9:01 PM [facility] Anion Gap 8 3 - 14 05/04/2018 [place] mmol/L 9:01 PM [facility] Glucose 102 (H) 70 - 99 05/04/2018 [place] mg/dL 9:01 PM [facility] Urea Nitrogen 5 (L) 7 - 30 05/04/2018 [place] mg/dL 9:01 PM [facility] Creatinine 0.68 0.52 - 05/04/2018 [place] 1.04 mg/dL 9:01 PM [facility] GFR Estimate >90 >60 05/04/2018 [place] mL/min/{1. 9:01 PM [facility] 73_m2} HOSPITAL Comment: Non GFR Calc Starting 02/03/2018, serum creatinine ba sed estimated GFR (eGFR) will be calculated using the Chronic Kidney Dise [facility] Epidemiology Collaboration (CKD-EPI) equation. GFR Estimate If >90 >60 mL/min/{1.73_m2} 05/04/2018 9: 01 PM [facility] Comment: GFR Calc Starting 02/03/2018, serum creatinine ba sed estimated GFR (eGFR) will be calculated using the Chronic Kidney Dise [facility] Epidemiology Collaboration (CKD-EPI) equation. Calcium 8.5 8.5 - 10.1 05/04/2018 9:01 PM [place] R IDGES mg/dL [facility] Bilirubin Total 1.2 0.2 - 1.3 mg/dL 05/04/2018 9:02 PM [facility] Albumin 4.1 3.4 - 5.0 g/dL 05/04/2018 9:02 PM [facility] Protein Total 8.6 6.8 - 8.8 g/dL 05/04/2018 9:02 PM [facility] Alkaline Phosphatase 157 (H) 40 - 150 U/L 05/04/2018 9:02 PM [facility] ALT 173 (H) 0 - 50 U/L 05/04/2018 9:02 PM [facility] AST 250 (H) 0 - 45 U/L 05/04/2018 9:02 PM [facility] Specimen Anatomical Collection Method Collection Time Receive d Time (Source) Location / / Volume Laterality Blood specimen 05/04/2018 8:30 PM 019 8:42 (specimen) CDT PM CDT Christopher Carrion MD LAB - BLOOD ORDERABLES Performing Organization Address City/State/ZIP Code Phon e Number M [facility] [address] [place], [place] [address] [facility] [address] [phone] (ABNORMAL) CBC with platelets differential (05/04/2018 8:30 PM CDT) [facility] gist Method Time Signature WBC 4.2 4.0 - 05/04/2018 [facility] 11.0 8:45 PM [facility] 10e9/L [facility] RBC Count 4.55 3.8 - 5.2 05/04/2018 [facility] 10e12/L 8:45 PM [facility] Hemoglobin 14.8 11.7 - 05/04/2018 [facility] 15.7 g/dL 8:45 PM [facility] Hematocrit 43.9 35.0 - 05/04/2018 [facility] 47.0 % 8:45 PM [facility] MCV 97 78 - 100 05/04/2018 [facility] fl 8:45 PM [facility] MCH 32.5 26.5 - 05/04/2018 [facility] 33.0 pg 8:45 PM [facility] MCHC 33.7 31.5 - 05/04/2018 [facility] 36.5 g/dL 8:45 PM [facility] RDW 13.3 10.0 - 05/04/2018 [facility] 15.0 % 8:45 PM [facility] Platelet Count 144 (L) 150 - 450 05/04/2018 [facility] 10e9/L 8:45 PM [facility] Diff Method Automated 05/04/2018 [facility] Method 8:45 PM CDT [facility] % Neutrophils 49.5 % 05/04/2018 [facility] 8:45 PM [facility] % Lymphocytes 39.2 % 05/04/2018 [facility] 8:45 PM [facility] % Monocytes 8.4 % 05/04/2018 [facility] 8:45 PM [facility] % Eosinophils 2.2 % 05/04/2018 [facility] 8:45 PM [facility] % Basophils 0.7 % 05/04/2018 [facility] 8:45 PM [facility] % Immature 0.0 % 05/04/2018 [facility] Granulocytes 8:45 PM [facility] Nucleated RBCs 0 0 /100 05/04/2018 [facility] 8:45 PM [facility] Absolute 2.1 1.6 - 8.3 05/04/2018 [place] Neutrophil 10e9/L 8:45 PM [facility] Absolute 1.6 0.8 - 5.3 05/04/2018 [place] Lymphocytes 10e9/L 8:45 PM [facility] Absolute 0.4 0.0 - 1.3 05/04/2018 [place] Monocytes 10e9/L 8:45 PM [facility] Absolute 0.1 0.0 - 0.7 05/04/2018 [facility] Eosinophils 10e9/L 8:45 PM [facility] Absolute 0.0 0.0 - 0.2 05/04/2018 [place] Basophils 10e9/L 8:45 PM [facility] Abs Immature 0.0 0 - 0.4 05/04/2018 [place] Granulocytes 10e9/L 8:45 PM [facility] Absolute 0.0 05/04/2018 [place] Nucleated RBC 8:45 PM [facility] Specimen Anatomical Collection Method Collection Time Receive d Time (Source) Location / / Volume Laterality Blood specimen 05/04/2018 8:30 PM 019 8:42 (specimen) CDT [facility] Christopher Carrion MD LAB - BLOOD ORDERABLES Performing Organization Address City/State/ZIP Code Phon e Number [facility] [address] [place], [place] [address] [facility] [address] [phone] (ABNORMAL) Alcohol ethyl (05/04/2018 8:30 PM CDT) athologist Signature Ethanol g/dL 0.21 (H) <0.01 g/dL 05/04/2018 [place] 9:02 PM CDT [facility] Specimen Anatomical Collection Method Collection Time Receive d Time (Source) Location / / Volume Laterality Blood specimen 05/04/2018 8:30 PM 019 8:42 (specimen) CDT PM CDT Christopher Carrion MD LAB - BLOOD ORDERABLES Performing Organization Address City/[facility]/ZIP [facility] Phon e Number M [facility] [address] [place], [place] [address] [facility] [address] [place], [place] [address] [place] [address] ISTAT HCG Quantitative POCT (05/04/2018 8:28 PM CDT) athologist Signature HCG Quantitative <5.0 <5.0 IU/L 05/04/2018 [facility] Serum 8:40 PM CDT TEST, HANDHELD METER Specimen Anatomical Collection Method Collection Time Receive d Time (Source) Location / / Volume Laterality 05/04/2018 8:28 PM 9 8:40 CDT PM CDT Christopher Carrion MD LAB - BEAKER POCT Performing Organization Address City/[facility]/ZIP Code Phon e Number [facility] POINT OF [...] 1,000 mL/hr, Administer over 1 Hours, On 05/04/18 at 2013, For 1 dose diazepam (VALIUM) injection 5 [...] Provider: Lucia Chang RN)2252 (Stopped - Provider: Lucai Chang RN) Intravenous, 1,000 mL, ONCE, at [...] (COMPLETED ) 2021 (Given - Provider: Brittnee Tyler, GENARO) 1 tablet, Oral, ONCE, Fri05/04/18 at 2012, For 1 dose potassium chloride ER (K-DUR/KLOR-CON M) CR tablet 20 mEq (COMPL ETED) 2157 (Given - Provider: Lucia Chang RN) 20 mEq, Oral, ONCE, Fri05/04/18 at 2151, For 1 dose, DO NOT TOBIAS H vitamin B1 (THIAMINE) tablet 100 mg (COMPLETED) 2021 (Given - Provider: Brittnee Tyler RN) 100 mg, Oral, ONCE, Fri05/04/18 at 2012, For 1 dose Continuous Medication Order 05/02/2018 05/03/2018 05/04/2018 sodium chloride 0.9% infusion 20 13 (Canceled Entry - Provider: Orders Generic Provider - Comment: Automatically canceled at discontinue of medication order) at 125 mL/hr, Intravenous, CONTINUOUS, A dminister after the bolus., Starting Fri05/04/18 at 2012, Until Fri05/05/18 at 0117 documented in this encounter Care Teams Torpedo Shooter Relationship Specialty Start Date End Date Clinic, [facility] PCP - General 01/20/18 06/28/[address] [place] [id number] documented as of this encounter
--- OUTSIDE RECORDS SUMMARY | 2021-12-13 12:35 | XMS_ITS | Encounter Summary ---
:1980 Author Organization [place] Address [facility] [place] [address] Care Team Providers Name Role Phone Clinic, [facility] Primary Care Provide r Reason for Visit Reason Comments Alcohol Problem Vomiting Encounter Details Date Type Department Care Team Description 02/24/2018 Emergency [facility] Celestino Knox A lcohol withdrawal syndrome with complication (H); [facility] Emergency Dep t Non-intractable vomiting with nausea, un specified vomiting type [address] [facility] [place] [phone] 0174 [facility] [phone] [place], [place] [address] (Wo rk) Social History [...] ENGINEERING CONSULTANT documented as of this encounter Last Filed Vital Signs Vital Sign Reading Time Taken Comments Blood Pressure 130/81 02/24/2018 5:30 PM MARINE ENGINEERING CONSULTANT Pulse 86 02/24/2018 5:30 PM MARINE ENGINEERING CONSULTANT Temperature 36.6 ??C (97.8 ??F) 02/24/2018 1:15 PM MARINE ENGINEERING CONSULTANT Respiratory Rate 14 02/24/2018 1:15 PM MARINE ENGINEERING CONSULTANT Oxygen Saturation 95% 02/24/2018 5:30 PM MARINE ENGINEERING CONSULTANT Inhaled Oxygen Concentration - - Weight - - Height - - Body Mass Index - - documented in this encounter Discharge Instructions Discharge InstructionsCelestino Knox MD - 02/24/2018 4:37 PM MARINE ENGINEERING CONSULTANT Do not take the Librium while breast-feeding. [...] if there is anything that worries you. NE ENGINEERING CONSULTANT AttachmentsThe following attachments cannot be sent through Care Everywhere. ALCOHOL WITHDRAWAL (GREEK)documented in this encounter Medications at Time of [...] 2 days. Also reports feeling some palpitations. NE ENGINEERING CONSULTANT Celestino Knox MD - 02/24/2018 1:03 PM [...] hysterectomy - combined Orthopedic surgery Thoracic surgery REVIEW RN surgery Family History: Depression Psychotic disorder Thyroid [...] sinus rhythm Normal ECG Rate 90 bpm. MA interval 176. QRS duration 96. QT/QTc 392/479. [...] observations and the provider's statements to me. [facility] EMERGENCY DEPARTMENT Celestino Knox MD 02/24/18 1730 NE ENGINEERING CONSULTANT documented in this encounter Plan of Treatment Upcoming Encounters Date Type Specialty Care Team Description 12/20/2021 Office Visit Wound Care Luis Camara DPM [address] [place] [address] (Reinaldo molina) 01/21/2022 PRE VISIT Gastroenterology Landon Warren, *-*HEATHER G RECORDS*-* MD Luis Fernando [address] [facility] [address] [place], [place] [phone] (Reinaldo molina) 01/21/2022 Office Visit Gastroenterology Juanis Levi [address] [place] [phone] Luis Fernando Miles MD [address] [facility] [address] [place] [address] documented as of this encounter Procedures Procedure Name Priority Date/Time Associated Comments Diagnosis BLOOD GAS VENOUS WITH STAT 02/24/2018 3:59 PM Results for this OXYHEMOGLOBIN MARINE ENGINEERING CONSULTANT procedure are in the results section. HCG QUALITATIVE Routine 02/24/2018 3:21 PM Result s for this MARINE ENGINEERING CONSULTANT procedure are i n the results section. INR STAT 02/24/2018 3:20 PM Results f or this MARINE ENGINEERING CONSULTANT procedure are i n the results section. MAGNESIUM STAT 02/24/2018 3:20 PM Results f or this MARINE ENGINEERING CONSULTANT procedure are i n the results section. KETONE STAT 02/24/2018 3:20 PM Results f or this BETA-HYDROXYBUTYRATE MARINE ENGINEERING CONSULTANT procedu re are in QUANTITATIVE, RAPID the resu lts section. COMPREHENSIVE STAT 02/24/2018 3:20 PM Results for this METABOLIC PANEL MARINE ENGINEERING CONSULTANT procedure ar e in the results section. ETHYL ALCOHOL LEVEL STAT 02/24/2018 3:20 PM Re sults for this MARINE ENGINEERING CONSULTANT procedure are i n the results section. CBC WITH PLATELETS STAT 02/24/2018 3:20 PM Res ults for this MARINE ENGINEERING CONSULTANT procedure are i n the results section. EKG 12-LEAD, TRACING STAT 02/24/2018 1:32 PM R esults for this ONLY MARINE ENGINEERING CONSULTANT procedure are i n the results section. documented in this encounter Results (ABNORMAL) Blood gas venous and oxyhgb (02/24/2018 3:59 PM MARINE ENGINEERING CONSULTANT) [facility] gist Method Time Signature Ph Venous 7.43 7.32 - 02/24/2018 [facility] 7.43 pH 4:[address] [facility] PCO2 Venous 40 40 - 50 02/24/2018 [facility] mm Hg 4:[address] [facility] PO2 Venous 52 (H) 25 - 47 02/24/2018 [facility] mm Hg 4:[address] [facility] Bicarbonate 26 21 - 28 02/24/2018 [facility] Venous mmol/L 4:[address] [facility] FIO2 Room air 02/24/2018 [facility] 3:[address] [facility] Oxyhemoglobin 80 % 02/24/2018 [facility] Venous 4:[address] [facility] Base Excess 1.9 mmol/L 02/24/2018 [place] Venous 4:[address] [facility] Comment: Reference range: -7.7 to 1.9 Specimen Anatomical Collection Method Collection Time Receive d Time (Source) Location / / Volume Laterality 02/24/2018 3:59 PM 9 4:00 MARINE ENGINEERING CONSULTANT PM MARINE ENGINEERING CONSULTANT Celestino Knox MD LAB - BLOOD ORDERABLES Performing Organization Address City/[facility] Phon e Number M [facility] [address] [place], [place] [address] [place] [address] [address] [place], [place] [address], [facility] [phone] HCG qualitative (02/24/2018 3:21 PM MARINE ENGINEERING CONSULTANT) Patholo gist Method Time Signature HCG Qualitative Negative NEG^Negati 02/24/2018 [place] Serum ve 4:[address] [facility] Comment: This test is for screening purposes. ??R esults should be interpreted along with the clinical picture. ??Confirmation te sting is available if warranted by ordering [id number], HCG Quantitative Pregna ncy. Specimen Anatomical Collection Method Collection Time Receive d Time (Source) Location / / Volume Laterality Blood specimen 02/24/2018 3:21 PM 019 3:28 (specimen) MARINE ENGINEERING CONSULTANT PM MARINE ENGINEERING CONSULTANT Celestino Knox MD LAB - BLOOD ORDERABLES Performing Organization Address City/[facility]/ZIP [facility] Phon e Number M [facility] [address] [place], [place] [address] [facility] [address] [place], [place] [address], [facility] [phone] Ketone Beta-Hydroxybutyrate Quantitative (02/24/2018 3:20 PM MARINE ENGINEERING CONSULTANT) P athologist Signature Ketone 0.1 0.0 - 0.6 02/24/2018 [place] Quantitative mmol/L 3:[address] [facility] Specimen Anatomical Collection Method Collection Time Receive d Time (Source) Location / / Volume Laterality Blood specimen 02/24/2018 3:20 PM 019 3:21 (specimen) MARINE ENGINEERING CONSULTANT PM MARINE ENGINEERING CONSULTANT Celestino Knox MD LAB - BLOOD ORDERABLES Performing Organization Address City/State/ZIP Code Phon e Rk Cow[place] [facility] [address] [place], [place] [address] [facility] [address] [place], [place] [address], [facility] [phone] Magnesium (02/24/2018 3:20 PM MARINE ENGINEERING CONSULTANT) athologist Signature Magnesium 1.8 1.6 - 2.3 02/24/2018 [facility] mg/dL 3:52 PM [facility] Specimen Anatomical Collection Method Collection Time Receive d Time (Source) Location / / Volume Laterality Blood specimen 02/24/2018 3:20 PM 019 3:21 (specimen) MARINE ENGINEERING CONSULTANT PM MARINE ENGINEERING CONSULTANT Celestino Knox MD LAB - BLOOD ORDERABLES Performing Organization Address City/State/ZIP Code Phon e Rk [place] [facility] [address] [place], [place] [address] [facility] [address] [place], [place] [address], [facility] [phone] (ABNORMAL) Alcohol level blood (02/24/2018 3:20 PM MARINE ENGINEERING CONSULTANT) athologist Signature Ethanol g/dL 0.06 (H) <0.01 g/dL 02/24/2018 [place] 3:[address] [facility] Specimen Anatomical Collection Method Collection Time Receive d Time (Source) Location / / Volume Laterality Blood specimen 02/24/2018 3:20 PM 019 3:21 (specimen) MARINE ENGINEERING CONSULTANT PM MARINE ENGINEERING CONSULTANT Celestino Knox MD LAB - BLOOD ORDERABLES Performing Organization Address City/State/ZIP Code Phon e Rk [place] [facility] [address] [place], [place] [address] [facility] [address] [place], [place] [address], [facility] [phone] INR (02/24/2018 3:20 PM MARINE ENGINEERING CONSULTANT) athologist Signature INR 1.00 0.86 - 1.14 02/24/2018 [facility] 3:46 PM [facility] Specimen Anatomical Collection Method Collection Time Receive d Time (Source) Location / / Volume Laterality Blood specimen 02/24/2018 3:20 PM 019 3:21 (specimen) MARINE ENGINEERING CONSULTANT PM [facility] Celestino Knox MD LAB - BLOOD ORDERABLES Performing Organization Address City/State/ZIP Code Phon e Number M [place] [address] [address] [place], [place] [address] [facility] [address] [phone] (ABNORMAL) Comprehensive metabolic panel (02/24/2018 3:20 PM MARINE ENGINEERING CONSULTANT) athologist Signature Sodium 139 133 - 144 02/24/2018 [place] mmol/L 3:[address] [facility] Potassium 3.3 (L) 3.4 - 5.3 02/24/2018 [place] mmol/L 3:[address] [facility] Chloride 103 94 - 109 02/24/2018 [place] mmol/L 3:[address] [facility] Carbon Dioxide 27 20 - 32 02/24/2018 [place] mmol/L 3:[address] [facility] Anion Gap 9 3 - 14 02/24/2018 [place] mmol/L 3:[address] [facility] Glucose 114 (H) 70 - 99 02/24/2018 [place] mg/dL 3:[address] [facility] Urea Nitrogen 6 (L) 7 - 30 02/24/2018 [place] mg/dL 3:[address] [facility] Creatinine 0.63 0.52 - 02/24/2018 [facility] 1.04 mg/dL 3:[address] [facility] GFR Estimate >90 >60 02/24/2018 [place] mL/min/{1. 3:51 PM [facility] 73_m2} HOSPITAL Comment: Non GFR Calc Starting 02/03/2018, serum creatinine ba sed estimated GFR (eGFR) will be calculated using the Chronic Kidney Dise ase Epidemiology Collaboration (CKD-EPI) equation. GFR Estimate If >90 >60 mL/min/{1.73_m2} 02/24/2018 3: [address] [facility] Comment: GFR Calc Starting 02/03/2018, serum creatinine ba sed estimated GFR (eGFR) will be calculated using the Chronic Kidney Dise ase Epidemiology Collaboration (CKD-EPI) equation. Calcium 8.4 (L) 8.5 - 10.1 02/24/2018 3:51 PM [facility] mg/dL [facility] Bilirubin Total 0.8 0.2 - 1.3 mg/dL 02/24/2018 3:52 PM [facility] Albumin 3.6 3.4 - 5.0 g/dL 02/24/2018 3:52 PM [facility] Protein Total 7.8 6.8 - 8.8 g/dL 02/24/2018 3:52 PM [facility] Alkaline Phosphatase 129 40 - 150 U/L 02/24/2018 3:52 PM [facility] ALT 241 (H) 0 - 50 U/L 02/24/2018 3:52 PM [facility] AST 326 (H) 0 - 45 U/L 02/24/2018 3:52 PM [facility] Specimen Anatomical Collection Method Collection Time Receive d Time (Source) Location / / Volume Laterality Blood specimen 02/24/2018 3:20 PM 019 3:21 (specimen) MARINE ENGINEERING CONSULTANT PM [facility] Celestino Knox MD LAB - BLOOD ORDERABLES Performing Organization Address City/State/ZIP Code Phon e Number M [place] [address] [phone] (ABNORMAL) CBC (platelets, no diff) (02/24/2018 3:20 PM MARINE ENGINEERING CONSULTANT) athologist Signature WBC 3.9 (L) 4.0 - 11.0 02/24/2018 [place] 10e9/L 3:[address] [facility] RBC Count 4.24 3.8 - 5.2 02/24/2018 [place] 10e12/L 3:[address] [facility] Hemoglobin 13.9 11.7 - 02/24/2018 [facility] 15.7 g/dL 3:[address] [facility] Hematocrit 40.9 35.0 - 02/24/2018 [facility] 47.0 % 3:[address] [facility] MCV 97 78 - 100 02/24/2018 [facility] fl 3:[address] [facility] MCH 32.8 26.5 - 02/24/2018 [facility] 33.0 pg 3:[address] [facility] MCHC 34.0 31.5 - 02/24/2018 [facility] 36.5 g/dL 3:[address] [facility] RDW 11.8 10.0 - 02/24/2018 [facility] 15.0 % 3:[address] [facility] Platelet Count 135 (L) 150 - 450 02/24/2018 [facility] 10e9/L 3:[address] [facility] Specimen Anatomical Collection Method Collection Time Receive d Time (Source) Location / / Volume Laterality Blood specimen 02/24/2018 3:20 PM 019 3:21 (specimen) MARINE ENGINEERING CONSULTANT PM MARINE ENGINEERING CONSULTANT Celestino Knox MD LAB - BLOOD ORDERABLES Performing Organization Address City/State/ZIP Code Phon e Number [place] [address] [address] [place] [address] [place] [address] [phone] EKG 12 lead (02/24/2018 1:32 PM MARINE ENGINEERING CONSULTANT) [facility] gist Method Time Signature Interpretation ECG Click View RADIOLOGY Image link RESULTS to view waveform and result Specimen (Source) Anatomical Collection Method Collection Time Re ceived Time Location / / Volume Laterality 02/24/2018 1:32 PM MARINE ENGINEERING CONSULTANT Christopher Carrion MD ECG ORDERABLES Performing Organization Address City/State/ZIP [facility] Phon e Number RADIOLOGY RESULTS documented in this encounter Visit Diagnoses Diagnosis Alcohol withdrawal syndrome with complic ation (H) Non-intractable vomiting with nausea, un specified vomiting type documented in this encounter Administered Medications Inactive Administered Medications - up to 3 most recent administrations Medication Order MAR Action Action Date Dose Rate Site 0.9% sodium chloride BOLUS New Bag 02/24/2018 3:27 PM MARINE ENGINEERING CONSULTANT 1,000 mLs 1000 mL/hr Intravenous, 1,000 mL, ONCE, at 1,000 mL/hr, Administer over 1 Hours, On Fri02/24/18 at 1506, For 1 dose diazepam (VALIUM) injection 5 mg Given 02/24/2018 3:28 PM MARINE ENGINEERING CONSULTANT 5 mg 5 mg, Intravenous, Administer over 1-4 Minutes, ONCE, On Fri02/24/18 at 1506, For 1 dose, Vesicant. For ordered doses up to 20 mg, give IV Push undiluted. Administer each 5mg over 1 minute. See IV push link for additional instructions. ondansetron (ZOFRAN) injection 8 mg Given 02/24/2018 3:28 PM MARINE ENGINEERING CONSULTANT 8 mg 8 mg, Intravenous, ONCE, Administer over 2-5 Minutes, On Fri02/24/18 at 1506, For 1 dose, Irritant. For ordered IV doses 0.1-4 mg, give IV Push undiluted over 2-5 minutes. potassium chloride ER (K-DUR/KLOR-CON M) CR Given 02/24/2018 4:06 PM MARINE ENGINEERING CONSULTANT 40 mEq tablet 40 mEq 40 mEq, Oral, ONCE, On Fri02/24/18 at 1550, For 1 dose, DO NOT CRUSH documented in this encounter Active and Recently Administered Medications Times are shown in MARINE ENGINEERING CONSULTANT. Scheduled Medication Order 02/22/2018 02/23/2018 02/24/2018 0.9% sodium chloride BOLUS (COMPLETED) 1527 (New Bag - Provider: Tarsha Lange RN)1651 (Stopped - Provider: Tarsha Lange RN) Intravenous, 1,000 mL, ONCE, at 1,000 mL /hr, Administer over 1 Hours, On Fri02/24/18 at 1506, For 1 dose diazepam (VALIUM) injection 5 mg (COMPLETED) 1528 (Given - Provider: Tarsha Lange, GENARO) 5 mg, Intravenous, Administer over 1-4 M inutes, ONCE, Fri02/24/18 at 1506, For 1 dose, Vesicant. For ordered doses up to 20 mg, give IV Push undiluted. Administer each 5mg over 1 minute. See IV push link for additional instructions. ondansetron (ZOFRAN) injection 8 mg (COMPLETED) 1528 (Given - Provider: Tarsha Lange RN) 8 mg, Intravenous, ONCE, Administer over 2-5 Minutes, Fri02/24/18 at 1506, For 1 dose, Irritant. For ordered IV doses 0.1-4 mg, give IV Push undiluted over 2-5 minutes. potassium chloride ER (K-DUR/KLOR-CON M) CR tablet 40 mEq (COMPL ETED) 1606 (Given - Provider: Tarsha Lange RN) 40 mEq, Oral, ONCE, 02/24/18 at 1550, For 1 dose, DO NOT CRUSH documented in this encounter Care Teams Higher Education Administrator Relationship Specialty Start Date End Date Clinic, [facility] PCP - General 01/20/18 06/28/[address] [place] [address] documented as of this encounter
--- OUTSIDE RECORDS SUMMARY | 2021-12-13 12:35 | XMS_ITS | Encounter Summary ---
:1980 Author Organization [place] Address [address] 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 documented as of this encounter Plan of Treatment Upcoming Encounters Date Type Specialty Care Team Description 12/20/2021 Office Visit Wound Care Luis Camara, [place] [address] [place], [place] [phone] (Wo rk) 01/21/2022 PRE VISIT Gastroenterology Landon Warren, *-*INCOMIN G RECORDS*-* MD Luis Fernando [address] [place] [address] [address] [place], [place] [address] (Wo rk) 01/21/2022 Office Visit Gastroenterology Juanis Levi [address] [place] [phone] Luis Fernando Miles MD [address] [facility] [address] [place] [address] documented as of this encounter Visit Diagnoses Not on filedocumented in this encounter Additional Health Concerns Assessment Noted Time PHQ-9 Depression Total Score: 10 07/08/2018 1:27 PM CD T documented as of this encounter Care Teams Store Assistant Relationship Specialty Start Date End Date Clinic, [facility] PCP - General 01/20/18 06/28/[address] [place] [phone] documented as of this encounter
--- OUTSIDE RECORDS SUMMARY | 2021-12-13 12:35 | XMS_ITS | Encounter Summary ---
:1980 Author Organization [place] Address [address] [facility] 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 documented as of this encounter Plan of Treatment Upcoming Encounters Date Type Specialty Care Team Description 12/20/2021 Office Visit Wound Care Luis Camara, [place] [address] [place], [place] [phone] (Wo rk) 01/21/2022 PRE VISIT Gastroenterology Landon Warren, *-*WANDAIN G RECORDS*-* MD Luis Fernando [address] [facility] [address] [place], [place] [address] (Wo rk) 01/21/2022 Office Visit Gastroenterology Juanis Levi [address] [place] [phone] Luis Fernando Miles MD [address] [facility] [address] [place] [address] documented as of this encounter Visit Diagnoses Not on filedocumented in this encounter Additional Health Concerns Assessment Noted Time PHQ-9 Depression Total Score: 10 07/08/2018 1:27 PM CD T documented as of this encounter Care Teams Pre Coder Relationship Specialty Start Date End Date Clinic, [facility] PCP - General 01/20/18 06/28/[address] [place] [address] documented as of this encounter
--- OUTSIDE RECORDS SUMMARY | 2021-12-13 12:35 | XMS_ITS | Encounter Summary ---
:1980 Author Organization [place] Address [facility] [place] [address] Care Team Providers Name Role Phone Clinic, [facility] Primary Care Provide r Reason for Visit Reason Comments Alcohol Problem Palpitations Encounter Details Date Type Department Care Team Description 01/31/2018 - Emergency [facility] Shay Martinez MD Alcoholic intoxication without complicat ion (H); 02/01/2018 [facility] Emergency EMERGENCY Uncomplicat ed opioid dependence (H); Dept PHYSICIANS PA S/P emergency hysterectomy; [address] Slow transit constipation; [place], [place] Major depre ssive disorder, recurrent episode, moderate (H) [id number] [phone] (Wo rk) Social History Tobacco Use Types Packs/Day Years Used Date Smoking Tobacco: Every Day Cigarettes 0.1 10 Smokeless Tobacco: Never Comments: 5 cigarettes a day Alcohol Use Standard Drinks/Week Comments Yes 0 (1 standard drink = 0.6 oz pure alcoho l) binge drinks Sex Assigned at Date Recorded Female 01/14/2020 10:57 AM GREY GOODS EXAMINER documented as of this encounter Last Filed Vital Signs Vital Sign Reading Time Taken Comments Blood Pressure 145/72 01/31/2018 8:16 PM GREY GOODS EXAMINER Pulse - - Temperature 36.1 ??C (97 ??F) 01/31/2018 8:16 PM GREY GOODS EXAMINER Respiratory Rate 18 01/31/2018 8:16 PM GREY GOODS EXAMINER Oxygen Saturation 97% 01/31/2018 8:16 PM GREY GOODS EXAMINER Inhaled Oxygen Concentration - - Weight - [...] depends on the stress level. Last drink MARKETING INTERN Patient slurred speech I feel intoxicated Appeared to be upset after Being asked if she uses recreational drugs. Requesting to go to detox Denies suicidal or homicidal ideation GOODS EXAMINER Shay Martinez MD - 01/31/2018 8:12 PM [...] Breast surgery section section, immediate hysterectomy, combined ESTIMATOR LUMBER surgery Orthopedic surgery Thoracic surgery Family History: [...] Department Course ECG (20:28:51): Rate 89 bpm. [place] interval 170. QRS duration 94. QT/QTc 374/455. [...] her father. Patient will be transferred to [facility] via EMS. Discussed the case with the [...] without complication (H) F10.920 Disposition: Transferred to [facility] via EMS. Discharge Medications: Modified buprenorphine 2 MG Subl sublingual tablet Commonly known as: SUBUTEX 2 mg, Sublingual, 2 TIMES DAILY What changed: ?? how much to take ?? how to take this ?? when to take this ?? additional instructions Ezra Chan 01/31/2018 [facility] EMERGENCY DEPARTMENT I, Ezra Chan, am serving as a scribe at 9:09 PM on 01/31/2018 to document services personally performed by Shay Martinez MD based on my observations and the provider's statements to me. Shay Martinez MD 01/31/18 7449 GOODS EXAMINER documented in this encounter Plan of Treatment Upcoming Encounters Date Type Specialty Care Team Description 12/20/2021 Office Visit Wound Care Luis Camara DPM [address] [place], [place] [phone] (Reinaldo molina) 01/21/2022 PRE VISIT Gastroenterology Landon Warren, *-*HEATHER Barriga RECORDS*-* MD Luis Fernando [address] [facility] 2[address] [place], [place] [address] (Reinaldo molina) 01/21/2022 Office Visit Gastroenterology Juanis Levi [address] [place] [address] Luis Fernando Miles MD 516 [facility] [address] [place] [address] documented as of this encounter Procedures Procedure Name Priority Date/Time Associated Comments Diagnosis CBC WITH PLATELETS & STAT 01/31/2018 9:13 PM R esults for this DIFFERENTIAL GREY GOODS EXAMINER procedure are i n the results section. COMPREHENSIVE STAT 01/31/2018 9:13 PM Results for this METABOLIC PANEL GREY GOODS EXAMINER procedure ar e in the results section. ETHYL ALCOHOL LEVEL STAT 01/31/2018 9:13 PM Re sults for this GREY GOODS EXAMINER procedure are i n the results section. EKG 12-LEAD, TRACING STAT 01/31/2018 8:58 PM R esults for this ONLY GREY GOODS EXAMINER procedure are i n the results section. documented in this encounter Results (ABNORMAL) Comprehensive metabolic panel (01/31/2018 9:13 PM GREY GOODS EXAMINER) athologist Signature Sodium 141 133 - 144 01/31/2018 [facility] mmol/L 9:[address] [facility] Potassium 3.5 3.4 - 5.3 01/31/2018 [facility] mmol/L 9:[address] [facility] Chloride 107 94 - 109 01/31/2018 [facility] mmol/L 9:[address] [facility] Carbon Dioxide 28 20 - 32 01/31/2018 [facility] mmol/L 9:[address] [facility] Anion Gap 6 3 - 14 01/31/2018 [facility] mmol/L 9:[address] [facility] Glucose 104 (H) 70 - 99 01/31/2018 [facility] mg/dL 9:[address] [facility] Urea Nitrogen 10 7 - 30 01/31/2018 [facility] mg/dL 9:[address] [facility] Creatinine 0.79 0.52 - 01/31/2018 [facility] 1.04 mg/dL 9:[address] [facility] GFR Estimate 82 >60 01/31/2018 [facility] mL/min/1.7 9:[address] Comment: Non GFR Calc GFR Estimate If >90 >60 mL/min/1.7m2 01/31/2018 9:45 P M [facility] Comment: GFR Calc Calcium 8.5 8.5 - 10.1 01/31/2018 9:45 PM [facility]GES mg/dL [facility] Bilirubin Total 0.5 0.2 - 1.3 mg/dL 01/31/2018 9:45 PM [facility] Albumin 3.7 3.4 - 5.0 g/dL 01/31/2018 9:45 PM [facility] Protein Total 7.7 6.8 - 8.8 g/dL 01/31/2018 9:45 PM [facility] Alkaline Phosphatase 134 40 - 150 U/L 01/31/2018 9:45 PM [facility] ALT 205 (H) 0 - 50 U/L 01/31/2018 9:45 PM [facility] AST 271 (H) 0 - 45 U/L 01/31/2018 9:45 PM [facility] Specimen Anatomical Collection Method Collection Time Receive d Time (Source) Location / / Volume Laterality Blood specimen 01/31/2018 9:13 PM 018 9:14 (specimen) GREY GOODS EXAMINER PM [facility] Shay Martinez MD LAB - BLOOD ORDERABLES Performing Organization Address City/State/ZIP Code Phon e Number [place] [address] [address] [place] [address] [facility] [address] [phone] (ABNORMAL) CBC with platelets differential (01/31/2018 9:13 PM [facility]) [facility] Method Time Signature WBC 4.4 4.0 - 01/31/2018 [facility] 11.0 9:[address] [facility] 10e9/L [facility] RBC Count 4.08 3.8 - 5.2 01/31/2018 [facility] 10e12/L 9:[address] [facility] Hemoglobin 13.7 11.7 - 01/31/2018 [facility] 15.7 g/dL 9:[address] [facility] Hematocrit 40.8 35.0 - 01/31/2018 [facility] 47.0 % 9:[address] [facility] MCV 100 78 - 100 01/31/2018 [facility] fl 9:[address] [facility] MCH 33.6 (H) 26.5 - 01/31/2018 [facility] 33.0 pg 9:[address] [facility] MCHC 33.6 31.5 - 01/31/2018 [facility] 36.5 g/dL 9:[address] [facility] RDW 12.0 10.0 - 01/31/2018 [facility] 15.0 % 9:[address] [facility] Platelet Count 151 150 - 450 01/31/2018 [facility] 10e9/L 9:[address] [facility] Diff Method Automated 01/31/2018 [facility] Method 9:[address] [facility] % Neutrophils 35.4 % 01/31/2018 [facility] 9:[address] [facility] % Lymphocytes 51.7 % 01/31/2018 [facility] 9:[address] [facility] % Monocytes 9.7 % 01/31/2018 [facility] 9:[address] [facility] % Eosinophils 2.5 % 01/31/2018 [facility] 9:[address] [facility] % Basophils 0.5 % 01/31/2018 [facility] 9:[address] [facility] % Immature 0.2 % 01/31/2018 [facility] Granulocytes 9:[address] [facility] Nucleated RBCs 0 0 /100 01/31/2018 [facility] 9:[address] [facility] Absolute 1.5 (L) 1.6 - 8.3 01/31/2018 [facility] Neutrophil 10e9/L 9:[address] [facility] Absolute 2.3 0.8 - 5.3 01/31/2018 [facility] Lymphocytes 10e9/L 9:[address] [facility] Absolute 0.4 0.0 - 1.3 01/31/2018 [facility] Monocytes 10e9/L 9:[address] [facility] Absolute 0.1 0.0 - 0.7 01/31/2018 [facility] Eosinophils 10e9/L 9:[address] [facility] Absolute 0.0 0.0 - 0.2 01/31/2018 [facility] Basophils 10e9/L 9:[address] [facility] Abs Immature 0.0 0 - 0.4 01/31/2018 [facility] Granulocytes 10e9/L 9:[address] [facility] Absolute 0.0 01/31/2018 [facility] Nucleated RBC 9:[address] [facility] Specimen Anatomical Collection Method Collection Time Receive d Time (Source) Location / / Volume Laterality Blood specimen 01/31/2018 9:13 PM 018 9:14 (specimen) GREY GOODS EXAMINER PM GREY GOODS EXAMINER Shay Martinez MD LAB - BLOOD ORDERABLES Performing Organization Address City/[facility]/ZIP [facility] Phon e Number M [facility] [address] [place], [place] [address] [facility] [address] [place], [place] [address], [facility] [phone] (ABNORMAL) Alcohol ethyl (01/31/2018 9:13 PM GREY GOODS EXAMINER) athologist Signature Ethanol g/dL 0.33 (HH) <0.01 g/dL 01/31/2018 [facility] 9:[address] [facility] Comment: Critical Value called to and read back Catarino SOSA (DOLPH) ON 01.31.18 AT 2142 BY AEF Specimen Anatomical Collection Method Collection Time Receive d Time (Source) Location / / Volume Laterality Blood specimen 01/31/2018 9:13 PM 018 9:14 (specimen) GREY GOODS EXAMINER PM GREY GOODS EXAMINER Shay Martinez MD LAB - BLOOD ORDERABLES Performing Organization Address City/[facility]/ZIP Code Phon e Number M [facility] [address] [place], [place] [address] [facility] [address] [place], [place] [address], [facility] [phone] EKG 12 lead (01/31/2018 8:58 PM GREY GOODS EXAMINER) [facility] gist Method Time Signature Interpretation ECG Click View RADIOLOGY Image link RESULTS to view waveform and result Specimen (Source) Anatomical Collection Method Collection Time Re ceived Time Location / / Volume Laterality 01/31/2018 8:58 PM GREY GOODS EXAMINER Mary Grace Molina MD ECG ORDERABLES Performing Organization Address City/[facility]/ZIP [facility] Phon e Number RADIOLOGY RESULTS documented in [...] chloride BOLUS New Bag 01/31/2018 9:13 PM GREY GOODS EXAMINER 1,000 mLs 1000 mL/hr Intravenous, 1,000 mL, ONCE, at 1,000 mL/hr, Administer over 1 Hours, On 01/31/18 at 2056, For 1 dose LORazepam (ATIVAN) tablet 0.5 mg Given 01/31/2018 10:30 PM GREY GOODS EXAMINER 0.5 mg 0.5 mg, Oral, ONCE, On 01/31/18 at 2219, For 1 dose sodium chloride 0.9% infusion at 125 mL/hr, Intravenous, CONTINUOUS, A dminister after the boluses., Starting on 01/31/18 at 2056, Until 02/01/18 at 0203 documented in this encounter Active and Recently Administered Medications Times are shown in GREY GOODS EXAMINER. Scheduled Medication Order 01/30/2018 01/31/2018 02/01/2018 0.9% [...] Joe Gallardo RN)2344 (Stopped - Provider: Joe Gallardo, GENARO) Intravenous, 1,000 mL, ONCE, at 1,000 mL /hr, Administer over 1 Hours, 01/31/18 at 2056, For 1 dose LORazepam (ATIVAN) tablet 0.5 mg (COMPLETED) 2229 (Given - Provider: Joe Gallardo, GENARO) 0.5 mg, Oral, ONCE, 01/31/18 at 2219, For 1 dose Continuous Medication Order 01/30/2018 01/31/2018 02/01/2018 sodium chloride 0.9% infusion 2056 (Canc eled Entry - Provider: Orders Generic Provider - Comment: Automatically canceled at discontinue of medication order) at 125 mL/hr, Intravenous, CONTINUOUS, A dminister after the boluses., Starting 01/31/18 at 2057, Until 02/01/18 at 0203 documented in this encounter Care Teams Speech And Drama Teacher Relationship Specialty Start Date End Date Clinic, [facility] PCP - General 01/20/18 06/28/[address] [place] [address] documented as of this encounter
--- OUTSIDE RECORDS SUMMARY | 2021-12-13 12:35 | XMS_ITS | Encounter Summary ---
:1980 Author Organization [place] Address [address] 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 AND WELLNESS documented as of this encounter Plan of Treatment Upcoming Encounters Date Type Specialty Care Team Description 12/20/2021 Office Visit Wound Care Luis Camara, CALVIN [address] [place], [place] [phone] (Wo rk) 01/21/2022 PRE VISIT Gastroenterology Landon Warren, *-*WANDAIN G RECORDS*-* MD Luis Fernando 516 [facility] 2[address] [place], [place] [phone] (Wo rk) 01/21/2022 Office Visit Gastroenterology Juanis Levi [address] [place] [phone] Luis Fernando Miles MD 516 [facility] [place] [address] documented as of this encounter Visit Diagnoses Not on filedocumented in this encounter Additional Health Concerns Assessment Noted Time PHQ-9 Depression Total Score: 10 07/08/2018 1:27 PM CD T documented as of this encounter Care Teams Animal Caregiver Relationship Specialty Start Date End Date Clinic, [facility] PCP - General 01/20/18 06/28/[address] [place] [address] documented as of this encounter
--- OUTSIDE RECORDS SUMMARY | 2021-12-13 12:35 | XMS_ITS | Encounter Summary ---
:1980 Author Organization [place] Address [address] [facility] [place] [address] Care Team Providers Name Role Phone Clinic, [facility] Primary Care Provide r Reason for Visit Reason Comments Constipation Encounter Details Date Type Department Care Team Description 07/24/[address] [facility] Tatyana Haas, Drug- induced constipation (Primary Dx); Clinic [place] SALES 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 SUPERVISOR SOLUTIONS DEVELOPER Rash and nonspecific skin eruption; [address] MNGI DIGESTIVE Alcohol abuse, continuous [address] [place], [place] [address] [address] [place] 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 Patient reports that she will be at till next Friday. [place]. Patient reports that she is smoking about [...] So Luciano MD; Location: [facility] OR ??? TOLL TESTBOARD WORKER SURGERY ??? ORTHOPEDIC SURGERY ??? THORACIC [...] and Alcohol Dependence. Tatyana Haas APRN CNP [facility] documented in this encounter Plan of Treatment Upcoming Encounters Date Type Specialty Care Team Description 12/20/2021 Office Visit Wound Care Luis Camara, CALVIN [address] [place] [address] (Wo rk) 01/21/2022 PRE VISIT Gastroenterology Landon Warren, *-*HEATHER G RECORDS*-* MD Luis Fernando [address] [place] [address] (Wo rk) 01/21/2022 Office Visit Gastroenterology Juanis Levi [address] [place] [phone] Luis Fernando Miles MD [address] [place] [address] documented as of this encounter Visit Diagnoses Diagnosis Drug-induced constipation - Primary Other constipation Rash and nonspecific skin eruption Rash and other nonspecific skin eruption Alcohol abuse, continuous Nondependent alcohol abuse, continuous d rinking behavior documented in this encounter Additional Health Concerns Assessment Noted Time PHQ-9 Depression Total Score: 10 07/08/2018 1:27 PM CD T documented as of this encounter Care Teams Rack Pusher Relationship Specialty Start Date End Date Clinic, [facility] PCP - General 01/20/18 06/28/[address] [place] [address] documented as of this encounter
--- OUTSIDE RECORDS SUMMARY | 2021-12-13 12:35 | XMS_ITS | Encounter Summary ---
:1980 Author Organization [place] Address [address] [facility] [place] [address] Care Team Providers Name Role Phone Luis Fernando Magana Primary Care Provider Reason for Visit Reason Onset Date Comments Refill Request 10/31/2017 buprenorphine (SUBUT EX) 2 MG SUBL sublingual tablet Encounter Details Date Type Department Care Team Description 10/31/2017 Refill [facility] Edgar Alfredo, Ref ill Request Clinic Ashly VÁSQUEZ (buprenorphine (SUBUTEX) [address] [place] 2 MG SUBL sublingual [address] 700 tablet) [place] [phone] (Wo rk) Social History Tobacco Use Types Packs/Day Years Used Date Smoking Tobacco: Every Day Cigarettes 0.1 10 Smokeless Tobacco: Never Comments: 5 cigarettes a day Alcohol Use Standard Drinks/Week Comments Yes 0 (1 standard drink = 0.6 oz pure Stoppe d after found out alcohol) Sex Assigned at Date Recorded Female 01/14/2020 10:57 AM 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 documented as of this encounter Miscellaneous [...] Wound Care Luis Camara DPM [address] [place] [address] (Wo rk) 01/21/2022 PRE VISIT Gastroenterology Landon Warren, *-*HEATHER G RECORDS*-* MD Luis Fernando [address] [place] [address] (Wo rk) 01/21/2022 Office Visit Gastroenterology Juanis Levi [address] [place] [phone] Luis Fernando Miles MD [address] [place] [phone] documented as of this encounter Visit Diagnoses Diagnosis Uncomplicated opioid dependence (H) Opioid type dependence, unspecified documented in this encounter Care Teams Plant Utilities Engineer Relationship Specialty Start Date End Date Luis Fernando Magana PCP - General Family Practice 12/07/16 01/19/[address] [address] documented as of this encounter
--- OUTSIDE RECORDS SUMMARY | 2021-12-13 12:35 | XMS_ITS | Encounter Summary ---
:1980 Author Organization [place] Address [address] [facility] [address] Care Team Providers Name Role Phone Clinic, [facility] Primary Care Provide r Encounter [...] Care Luis Camara, CALVIN [address] [place], [place] [phone] (Wo rk) 01/21/2022 PRE VISIT Gastroenterology Landon Warren, *-*INCOMIN G RECORDS*-* MD Luis Fernando 6 [facility] 2[address] [place], [place] [address] (Wo rk) 01/21/2022 Office Visit Gastroenterology Juanis Levi [address] [place] [phone] Luis Fernando Miles MD 6 [facility] [address] [place] [address] documented as of this encounter Visit Diagnoses Not on filedocumented in this encounter Care Teams Application Integrator Relationship Specialty Start Date End Date Clinic, [facility] PCP - General 01/20/18 06/28/[address] [place] [address] documented as of this encounter
--- OUTSIDE RECORDS SUMMARY | 2021-12-13 12:35 | XMS_ITS | Encounter Summary ---
:1980 Author Organization [place] Address [address] [place] [address]. [place] [address] Care Team Providers Name Role Phone Clinic, [facility] Primary Care Provide r Reason for Referral Consultation (Routine) - Closed Specialty Diagnoses / Procedures Referred By Contact Refer red To Contact Diagnoses Joint effusion of the lower leg Marleny De Jesus MD [address] and [place], [place] [address] [address] [facility] 4 [facility] Keith Camryn Sanju [address] Phone: Fax: Referral ID Status Reason Start Date Expiration Date Visits Requ ested Visits Authorized [id number] Closed 07/20/2018 07/20/2019 1 1 Reason for Visit Reason Comments Knee Pain Complains of left knee and l eg pain. States it started hurting 5 days ago. Was seen in ED and was given tordal and xray was done. Pt states they told her it was probably tendonit is. Encounter Details Date Type Department Care Team Description 07/20/2018 [facility] Jeannine De Jesus ra, MD Joint effusion of the Emergency Department [address] [place], [place] [address] lower leg (Primary Dx) [address] [place] [phone] (Wo rk) Social History Tobacco Use Types Packs/Day Years Used Date Smoking Tobacco: Every Day Cigarettes 0.3 10 Smokeless Tobacco: Never Comments: 5-8 cigarettes a day Alcohol Use Standard Drinks/Week Comments Not Currently 0 (1 standard drink = 0.6 oz pure alcoho l) sober 16 days Sex Assigned at Date Recorded Female 01/14/2020 10:57 AM PUBLIC 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 If you have to wear a qzeo-gie-tfva knee brace, you can open it to apply the ice pack, or heat, directly to the knee. Never put ice directly on the skin. Always wrap the ice in a towel or other type of cloth. ?? You may use??ovei-izk-nrmyyue pain medicine to control pain, unless another [...] work duties. ?? If you have a homr-rhl-daeu knee brace, you can remove it to [...] Shaking chills Date Last Reviewed: 06/17/2017 ?? [id number] The [employer]. [address] [place] [address], [place] [address]. All rights reserved. This information is not [...] cannot be sent through Care Everywhere.Knee Effusion (Yoruba)documented in this encounter Medications at Time of [...] treadmill and eliptical. She is currently in [employer]. She was seen and given toradol [...] and Surgical History, and Social History inthe [employer] system. Review of Systems Musculoskeletal: Positive for [...] Joint effusion of the lower leg 07/20/2018 [facility], EMERGENCY DEPARTMENT Marleny De Jesus MD 07/20/18 1542 documented in this encounter Plan of Treatment Upcoming Encounters Date Type Specialty Care Team Description 12/20/2021 Office Visit Wound Care Luis Camara DPM [address] [place], [place] [phone] (Wo rk) 01/21/2022 PRE VISIT Gastroenterology Landon Warren, *-*WANDAIN G RECORDS*-* MD Luis Fernando [address] [place] [address] (Wo rk) 01/21/2022 Office Visit Gastroenterology Juanis Levi [address] [place] [phone] Luis Fernando Miles MD [address] [place] [phone] Scheduled Referrals Name Type Priority Associated Diagnoses Order S [facility] SPORTS MEDICINE Referral Routine Joint effusion of [...] CHRIS COURTNEY MD Marleny De Jesus MD IMG US ORDERABLES documented in this [...] Sharron Singletary RN) 30 mg, Intramuscular, ONCE, Fri07/20/18 a t 1330, For 1 dose, Can [...] documented as of this encounter Care Teams Market Asset Protection Manager Relationship Specialty Start Date End Date Clinic, [facility] PCP - General 01/20/18 06/28/[address] [place] [address] documented as of this encounter
--- OUTSIDE RECORDS SUMMARY | 2021-12-13 12:35 | XMS_ITS | Encounter Summary ---
:1980 Author Organization [place] Address [address] [facility] 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 documented as of this encounter Plan of Treatment Upcoming Encounters Date Type Specialty Care Team Description 12/20/2021 Office Visit Wound Care Luis Camara, [place] [address] [place], [place] [phone] (Wo rk) 01/21/2022 PRE VISIT Gastroenterology Landon Warren, *-*INCOMIN G RECORDS*-* MD Luis Fernando 6 [facility] [address] [place], [place] [phone] (Wo rk) 01/21/2022 Office Visit Gastroenterology Juanis Levi [address] [place] [phone] Luis Fernando Miles MD 6 [facility] [address] [place] [address] documented as of this encounter Visit Diagnoses Not on filedocumented in this encounter Care Teams Attending Psychiatrist Relationship Specialty Start Date End Date Clinic, [facility] PCP - General 01/20/18 06/28/[address] [place] [address] documented as of this encounter
--- OUTSIDE RECORDS SUMMARY | 2021-12-13 12:35 | XMS_ITS | Encounter Summary ---
:1980 Author Organization [place] Address [address] [facility] 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 documented as of this encounter Plan of Treatment Upcoming Encounters Date Type Specialty Care Team Description 12/20/2021 Office Visit Wound Care Luis Camara, CALVIN [address] [place], [place] [phone] (Wo rk) 01/21/2022 PRE VISIT Gastroenterology Landon Warren, *-*INCOMIN G RECORDS*-* MD Luis Fernando 6 [facility] [address] [place], [place] [address] (Wo rk) 01/21/2022 Office Visit Gastroenterology Juanis Levi [address] [place] [phone] Luis Fernando Miles MD 6 [facility] [place] [address] documented as of this encounter Visit Diagnoses Not on filedocumented in this encounter Care Teams Career Resource Specialist Relationship Specialty Start Date End Date Clinic, [facility] PCP - General 01/20/18 06/28/[address] [place] [address] documented as of this encounter
--- OUTSIDE RECORDS SUMMARY | 2021-12-13 12:35 | XMS_ITS | Encounter Summary ---
:1980 Author Organization [place] Address [facility] [place] [address] Care Team Providers Name Role Phone Clinic, [facility] Primary Care Provide r Reason for Visit Reason Comments Alcohol Intoxication Encounter Details Date Type Department Care Team Description 05/23/2018 Emergency [facility] Silke Muñiz Alcoholic intoxication without complication (H); [facility] Emergency Dep t MD Margot Elevated AST (SGOT); [address] Elevated ALT measurement [place], [place] [phone] Social History Tobacco Use Types Packs/Day Years Used Date Smoking Tobacco: Every Day Cigarettes 0.1 10 Smokeless Tobacco: Never Comments: 5 cigarettes a day Alcohol Use Standard Drinks/Week Comments Yes 0 (1 standard drink = 0.6 oz pure alcoho l) binge drinks Sex Assigned at Date Recorded Female 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 If you answer yes to any of [...] help, contact: Your caregiver. Alcoholics Anonymous (AA). [facility]: [phone] [facility] Office: [phone] A drug or alcohol rehabilitation program. You [...] treatment Past Surgical History: Breast abscess drained Oven Dumper surgery Thoracic surgery Orthopedic surgery Family History: [...] 8 HOURS PRN Scribe Disclosure: I, Areli Jean-Pierre, am serving as a scribe on 05/23/2018 at 4:21 PM to personally document services performed by Silke Muñiz MD based on my observations and the provider's statements to me. Areli Morejon 05/23/2018 [facility] Sikle Muñiz MD 05/23/18 1830 documented in this encounter Plan of Treatment Upcoming Encounters Date Type Specialty Care Team Description 12/20/2021 Office Visit Wound Care Luis Camara DPM [address] [place], [place] [phone] (Wo rk) 01/21/2022 PRE VISIT Gastroenterology Landon Warren, *-*INCOMIN G RECORDS*-* MD Luis Fernando [address] [place] [phone] (Wo rk) 01/21/2022 Office Visit Gastroenterology Juanis Levi 2450 [place] [phone] Luis Fernando Miles MD [address] [place] [address] [phone] documented as of this encounter Procedures Procedure [...] UA with Microscopic (05/23/2018 5:11 PM CDT) [facility] Method Time Signature Color Urine Light Yellow 05/23/2018 [facility] 5:22 PM [facility] Appearance Urine Clear 05/23/2018 [facility] 5:22 PM [facility] Glucose Urine Negative NEG^Negat 05/23/2018 [facility] paula mg/dL 5:22 PM [facility] Bilirubin Urine Negative NEG^Negat 05/23/2018 [facility] paula 5:22 PM [facility] Ketones Urine Negative NEG^Negat 05/23/2018 [facility] paula mg/dL 5:22 PM [facility] Specific [place] 1.009 1.003 - 05/23/2018 [facility] Urine 1.035 5:22 PM [facility] Blood Urine Negative NEG^Negat 05/23/2018 [facility] paula 5:22 PM [facility] pH Urine 6.0 5.0 - 7.0 05/23/2018 [facility] pH 5:22 PM [facility] Protein Albumin Negative NEG^Negat 05/23/2018 [facility] Urine paula mg/dL 5:22 PM [facility] Urobilinogen Normal 0.0 - 2.0 05/23/2018 [facility] mg/dL mg/dL 5:22 PM [facility] Nitrite Urine Negative NEG^Negat 05/23/2018 [facility] paula 5:22 PM [facility] Leukocyte Negative NEG^Negat 05/23/2018 [facility] Esterase Urine paula 5:22 PM [facility] Source Midstream 05/23/2018 [facility] Urine 5:11 PM [facility] WBC Urine <1 0 - 5 05/23/2018 [facility] [place] /HPF 5:22 PM [facility] RBC Urine <1 0 - 2 05/23/2018 [facility] [place] /HPF 5:22 PM [facility] Bacteria Urine Few (A) NEG^Negat 05/23/2018 [facility] [place] paula /HPF 5:22 PM [facility] Squamous 1 0 - 1 05/23/2018 [facility] [place] Epithelial /HPF /HPF 5:22 PM [facility] Mucous Urine Present (A) NEG^Negat 05/23/2018 [facility] paula /LPF 5:22 PM [facility] Specimen (Source) Anatomical Collection Method Collection Time Re ceived Time Location / / Volume Laterality Examination of 05/23/2018 5:11 05/23/2018 5:18 midstream urine PM CDT PM CDT specimen (procedure) Silke Muñiz MD LAB - URINE ORDERABLES Performing Organization Address City/[facility]/ZIP [facility] Phon e Number [facility] [address] [place], [place] [address] [facility] [address] [place] [address] 7, [facility] [phone] Lipase (05/23/2018 3:34 PM CDT) athologist Signature Lipase 172 73 - 393 05/23/2018 [facility] U/L 4:25 PM CDT HOSPITAL Specimen Anatomical Collection Method Collection Time Receive d Time (Source) Location / / Volume Laterality 05/23/2018 3:34 PM 9 3:39 CDT PM CDT Sandra Moreno MD LAB - BLOOD ORDERABLES Performing Organization Address City/[facility]/ZIP [facility] Phon e Number [facility] [address] [place], [place] [address] [facility] [address] [place] [address] 7, [facility] [phone] (ABNORMAL) Comprehensive metabolic panel (05/23/2018 3:34 PM CDT) athologist Signature Sodium 139 133 - 144 05/23/2018 [facility] mmol/L 3:51 PM [facility] Potassium 3.5 3.4 - 5.3 05/23/2018 [facility] mmol/L 3:51 PM [facility] Chloride 106 94 - 109 05/23/2018 [facility] mmol/L 3:51 PM [facility] Carbon Dioxide 27 20 - 32 05/23/2018 [facility] mmol/L 3:56 PM [facility] Anion Gap 6 3 - 14 05/23/2018 [facility] mmol/L 3:56 PM [facility] Glucose 106 (H) 70 - 99 05/23/2018 [facility] mg/dL 3:56 PM [facility] Urea Nitrogen 7 7 - 30 05/23/2018 [facility] mg/dL 3:56 PM [facility] Creatinine 0.64 0.52 - 05/23/2018 [facility] 1.04 mg/dL 3:56 PM [facility] GFR Estimate >90 >60 05/23/2018 [place] mL/min/{1. 3:56 PM [facility] 73_m2} HOSPITAL Comment: Non GFR Calc Starting 02/03/2018, serum creatinine ba sed estimated GFR (eGFR) will be calculated using the Chronic Kidney Dise [facility] Epidemiology Collaboration (CKD-EPI) equation. GFR Estimate If >90 >60 mL/min/{1.73_m2} 05/23/2018 3: 56 PM [facility] Comment: GFR Calc Starting 02/03/2018, serum creatinine ba sed estimated GFR (eGFR) will be calculated using the Chronic Kidney Dise [facility] Epidemiology Collaboration (CKD-EPI) equation. Calcium 8.6 8.5 - 10.1 05/23/2018 3:56 PM [place] R IDGES mg/dL [facility] Bilirubin Total 0.7 0.2 - 1.3 mg/dL 05/23/2018 3:59 PM [facility] Albumin 3.6 3.4 - 5.0 g/dL 05/23/2018 3:59 PM [facility] Protein Total 7.9 6.8 - 8.8 g/dL 05/23/2018 3:59 PM [facility] Alkaline Phosphatase 126 40 - 150 U/L 05/23/2018 3:59 PM [facility] ALT 164 (H) 0 - 50 U/L 05/23/2018 3:59 PM [facility] AST 251 (H) 0 - 45 U/L 05/23/2018 3:59 PM [facility] Specimen Anatomical Collection Method Collection Time Receive d Time (Source) Location / / Volume Laterality Blood specimen 05/23/2018 3:34 PM 019 3:39 (specimen) CDT PM CDT Silke Muñiz MD LAB - BLOOD ORDERABLES Performing Organization Address City/State/ZIP Code Phon e Number M [facility] [address] [place] [address] HOSPITAL [facility] [address] [phone] (ABNORMAL) CBC with platelets differential (05/23/2018 3:34 PM CDT) [facility] Method Time Signature WBC 3.3 (L) 4.0 - 05/23/2018 [facility] 11.0 3:42 PM [facility] 10e9/L [facility] RBC Count 4.13 3.8 - 5.2 05/23/2018 [facility] 10e12/L 3:42 PM [facility] Hemoglobin 13.5 11.7 - 05/23/2018 [facility] 15.7 g/dL 3:42 PM [facility] Hematocrit 39.9 35.0 - 05/23/2018 [facility] 47.0 % 3:42 PM [facility] MCV 97 78 - 100 05/23/2018 [facility] fl 3:42 PM [facility] MCH 32.7 26.5 - 05/23/2018 [facility] 33.0 pg 3:42 PM [facility] MCHC 33.8 31.5 - 05/23/2018 [facility] 36.5 g/dL 3:42 PM [facility] RDW 13.2 10.0 - 05/23/2018 [facility] 15.0 % 3:42 PM [facility] Platelet Count 150 150 - 450 05/23/2018 [facility] 10e9/L 3:42 PM [facility] Diff Method Automated 05/23/2018 [facility] Method 3:42 PM [facility] % Neutrophils 41.0 % 05/23/2018 [facility] 3:42 PM [facility] % Lymphocytes 43.6 % 05/23/2018 [facility] 3:42 PM [facility] % Monocytes 9.7 % 05/23/2018 [facility] 3:42 PM [facility] % Eosinophils 4.8 % 05/23/2018 [facility] 3:42 PM [facility] % Basophils 0.6 % 05/23/2018 [facility] 3:42 PM [facility] % Immature 0.3 % 05/23/2018 [facility] Granulocytes 3:42 PM [facility] Nucleated RBCs 0 0 /100 05/23/2018 [facility] 3:42 PM [facility] Absolute 1.4 (L) 1.6 - 8.3 05/23/2018 [facility] [place] Neutrophil 10e9/L 3:42 PM [facility] Absolute 1.4 0.8 - 5.3 05/23/2018 [facility] Lymphocytes 10e9/L 3:42 PM [facility] Absolute 0.3 0.0 - 1.3 05/23/2018 [facility] Monocytes 10e9/L 3:42 PM [facility] Absolute 0.2 0.0 - 0.7 05/23/2018 [facility] Eosinophils 10e9/L 3:42 PM [facility] Absolute 0.0 0.0 - 0.2 05/23/2018 [facility] Basophils 10e9/L 3:42 PM [facility] Abs Immature 0.0 0 - 0.4 05/23/2018 [facility] Granulocytes 10e9/L 3:42 PM [facility] Absolute 0.0 05/23/2018 [facility] [place] Nucleated RBC 3:42 PM [facility] Specimen Anatomical Collection Method Collection Time Receive d Time (Source) Location / / Volume Laterality Blood specimen 05/23/2018 3:34 PM 019 3:39 (specimen) CDT [facility] Silke Muñiz MD LAB - BLOOD ORDERABLES Performing Organization Address City/State/ZIP Code Phon e Number [address] [place] [address] [place] [address] [facility] [address] [place] [address] 7, [facility] [phone] (ABNORMAL) Alcohol ethyl (05/23/2018 3:34 PM CDT) P athologist Signature Ethanol g/dL 0.17 (H) <0.01 g/dL 05/23/2018 [place] 3:59 PM CDT [facility] Specimen Anatomical Collection Method Collection Time Receive d Time (Source) Location / / Volume Laterality Blood specimen 05/23/2018 3:34 PM 019 3:39 (specimen) CDT PM CDT Silke Muñiz MD LAB - BLOOD ORDERABLES Performing Organization Address City/State/ZIP Code Phon e Number [facility] [address] [place], [place] [address] [facility] [address] [place], [place] [address] 7[facility] [phone] documented in this encounter Visit Diagnoses Diagnosis [...] 05/23/2018 LORazepam (ATIVAN) tablet 2 mg (COMPLETED) 3557 (Given - Provider: Leydi Steven RN) 2 [...] minutes. documented in this encounter Care Teams Furnace Door Tender Relationship Specialty Start Date End Date Clinic, [facility] PCP - General 01/20/18 06/28/[address] [place] [address] documented as of this encounter
--- OUTSIDE RECORDS SUMMARY | 2021-12-13 12:35 | XMS_ITS | Encounter Summary ---
:1980 Author Organization [place] Address [address] [facility] 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 [address] [place] [address] documented as of this encounter Visit Diagnoses Not on filedocumented in this encounter Care Teams Shellfish Sorter Relationship Specialty Start Date End Date Clinic, [facility] PCP - General 01/20/18 06/28/[address] [place] [address] documented as of this encounter
--- OUTSIDE RECORDS SUMMARY | 2021-12-13 12:36 | XMS_ITS | Encounter Summary ---
:1980 Author Organization [place] Address [address] [facility] [place] [address] Care Team Providers Name Role Phone Luis Fernando Magana Primary Care Provider Reason for Visit Reason Onset Date Comments Medication Request 04/29/2017 call in subutex Encounter Details Date Type Department Care Team Description 04/29/2017 Telephone [facility] Edgar Alfredo, [facility] ication Request Clinic Ashly VÁSQUEZ (call in subutex) [address] [place] [address] [place] [phone] (Wo rk) Social History Tobacco Use Types Packs/Day Years Used Date Smoking Tobacco: Every Day Cigarettes 0.1 10 Smokeless Tobacco: Never Comments: 5 cigarettes a day Alcohol Use Standard Drinks/Week Comments Yes 0 (1 standard drink = 0.6 oz pure Stoppe d after found out alcohol) Sex Assigned at Date Recorded Female 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 Name of the pharmacy and phone number for the current request: [facility] in [place] [phone] Name of the medication requested: subutex Other request: Please call in subutex that was ordered 04/24/[address] Alfredo. Per patient and pharmacy it was never called in. Thanks. Can we leave a detailed message on this number? YES Phone number patient can be reached at: Home number on file [phone] (home) Best Time: anytime Call taken on 04/29/2017 at 3:56 PM by Vickie Espinal documented in this encounter Plan of Treatment Upcoming Encounters Date Type Specialty Care Team Description 12/20/2021 Office Visit Wound Care Luis Camara DPM [address] [place], [place] [phone] (Wo rk) 01/21/2022 PRE VISIT Gastroenterology Landon Warren, *-*WANDAIN G RECORDS*-* MD Luis Fernando [address] [place] [phone] (Wo rk) 01/21/2022 Office Visit Gastroenterology Juanis Levi [address] [place] [phone] Luis Fernando Miles MD [address] [place] [address] 994135 documented as of this encounter Visit Diagnoses Not on filedocumented in this encounter Care Teams Vocational Education Professional Relationship Specialty Start Date End Date Luis Fernando Magana PCP - General Family Practice 12/07/16 01/19/[address] [address] documented as of this encounter
--- OUTSIDE RECORDS SUMMARY | 2021-12-13 12:36 | XMS_ITS | Encounter Summary ---
:1980 Author Organization [place] Address [address] [facility] [address] Care Team Providers Name Role Phone Luis Fernando Magana Primary Care Provider Reason for Visit Reason Onset Date Comments Call Back 08/11/2017 Insurance questions Encounter Details Date Type Department Care Team Description 08/11/2017 Telephone [facility] Edgar Workman Cal l Back (Insurance Clinic [place] questions ) [address] [place] [address] [place] [phone] (Wo rk) Social History Tobacco Use Types Packs/Day Years Used Date Smoking Tobacco: Every Day Cigarettes 0.1 10 Smokeless Tobacco: Never Comments: 5 cigarettes a day Alcohol Use Standard Drinks/Week Comments Yes 0 (1 standard drink = 0.6 oz pure Stoppe d after found out alcohol) Sex Assigned at Date Recorded Female 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 Will forward to [facility] provider for review. Telephone Encounter - Kari Turner - 09/04/2017 12:17 PM CDT Pt called regarding the same issue. Pt states she is still unable to switch her Insurance from [employer] (which [facility] does not accept) to [employer] (which we do accept). Pt stated they can not switch her until the end of 2017. Pt is requesting a call back from [facility] to discuss this further and request bridges of subx till she can switch insurances. Pt# [phone] (okay to leave detailed message) Kari Turner Data Operations Leader Telephone Encounter - Edgar Workman MD - 08/11/2017 4:59 PM CDT Discussed with patient Advised find doctor that prescribes Suboxone [place] [facility] - no issues 1 month bridge called [...] be reached at: Home number on file [phone] (home) Best Time: anytime Can we leave a detailed message on this number? YES Call taken on 08/11/2017 at 12:43 PM by Makr Roldan documented in this encounter Plan of Treatment Upcoming Encounters Date Type Specialty Care Team Description 12/20/2021 Office Visit Wound Care Luis Camara, CALVIN [address] [place] [address] (Wo rk) 01/21/2022 PRE VISIT Gastroenterology Landon Warren, *-*WANDAIN G RECORDS*-* MD Luis Fernando [address] [place] [address] (Wo rk) 01/21/2022 Office Visit Gastroenterology Juanis Levi [address] [place] [phone] Luis Fernando Miles MD [address] [place] [address] documented as of this encounter Visit Diagnoses Diagnosis Uncomplicated opioid dependence (H) Opioid type dependence, unspecified Major depressive disorder, recurrent epi sode, moderate (H) Major depressive disorder, recurrent epi sode, moderate documented in this encounter Care Teams Curatorial Specialist Relationship Specialty Start Date End Date Luis Fernando Magana PCP - General Family Practice 12/07/16 01/19/[address] [address] documented as of this encounter
--- OUTSIDE RECORDS SUMMARY | 2021-12-13 12:36 | XMS_ITS | Encounter Summary ---
:1980 Author Organization [place] Address [address] [facility] [place] [address] Care Team Providers Name Role Phone Luis Fernando Magana Primary Care Provider Reason for Visit Reason Onset Date Comments Medication Request 07/01/2017 Subutex bridge Encounter Details Date Type Department Care Team Description 07/01/2017 Telephone [facility] Edgar Alfredo, [facility] ication Request Clinic Ashly VÁSQUEZ (Subutex bridge ) [address] [place] [address] [place] [phone] (Wo rk) Social History Tobacco Use Types Packs/Day Years Used Date Smoking Tobacco: Every Day Cigarettes 0.1 10 Smokeless Tobacco: Never Comments: 5 cigarettes a day Alcohol Use Standard Drinks/Week Comments Yes 0 (1 standard drink = 0.6 oz pure Stoppe d after found out alcohol) Sex Assigned at Date Recorded Female 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 Name of the pharmacy and phone number for the current request: [facility] [place] tel: [phone] Name of the medication requested: Subutex 2 [...] be reached at: Home number on file [phone] (home) Best Time: Anytime Call taken on 07/01/2017 at 3:29 PM by Mark Roldan documented in this encounter Plan of Treatment Upcoming Encounters Date Type Specialty Care Team Description 12/20/2021 Office Visit Wound Care Luis Camara, CALVIN [address] [place] [address] (Wo rk) 01/21/2022 PRE VISIT Gastroenterology Landon Warren, *-*WANDAIN G RECORDS*-* MD Luis Fernando [address] [address] (Wo rk) 01/21/2022 Office Visit Gastroenterology Juanis Levi [address] [place] [phone] Luis Fernando Miles MD [address] [phone] documented as of this encounter Visit Diagnoses Diagnosis Uncomplicated opioid dependence (H) Opioid type dependence, unspecified documented in this encounter Care Teams Overhead Garage Door Hanger Relationship Specialty Start Date End Date Luis Fernando Magana PCP - General Family Practice 12/07/16 01/19/[address] [address] documented as of this encounter
--- OUTSIDE RECORDS SUMMARY | 2021-12-13 12:36 | XMS_ITS | Encounter Summary ---
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 Will continue to follow and support. CE MOVER documented in this encounter Plan of Treatment Upcoming Encounters Date Type Specialty Care Team Description 12/20/2021 Office Visit Wound Care Luis Camara DPM [address] [place], [place] [phone] (Wo rk) 01/21/2022 PRE VISIT Gastroenterology Landon Warren, *-*INCOMIN G RECORDS*-* MD Luis Fernando [address] [place] [phone] (Wo rk) 01/21/2022 Office Visit Gastroenterology Juanis Levi [address] [place] [phone] Luis Fernando Miles MD [address] [place] [phone] documented as of this encounter Visit Diagnoses Not on filedocumented in this encounter Care Teams Director Of Mechanical Engineering Relationship Specialty Start Date End Date Luis Fernando Magana PCP - General Family Practice 12/07/16 01/19/[address] [address] documented as of this encounter
--- OUTSIDE RECORDS SUMMARY | 2021-12-13 12:36 | XMS_ITS | Encounter Summary ---
:1980 Author Organization [place] Address [address] [facility] [address] Care Team Providers Name Role Phone Luis Fernando Magana Primary Care Provider Reason for Visit Reason Onset Date Comments Erroneous encounter-disregard 04/02/2017 Encounter Details Date Type Department Care Team Description 03/31/2017 Office Visit [facility] Edgar Alfredo ERRONEOUS Clinic Ashly Gauthier MD ENCOUNTER--DISREGARD [address] [place] (Primary Dx) [address] [place] [phone] Social History Tobacco Use Types Packs/Day Years Used Date Smoking Tobacco: Every Day Cigarettes 0.1 10 Smokeless Tobacco: Never Comments: 5 cigarettes a day Alcohol Use Standard Drinks/Week Comments Yes 0 (1 standard drink = 0.6 oz pure Stoppe d after found out alcohol) Sex Assigned at Date Recorded Female 01/14/2020 10:57 AM MEDICAL RESEARCH TECH documented as of this encounter Progress Notes Edgar Alfredo MD - 03/31/2017 2:45 PM CST This encounter was opened in error. Please disregard. CAL RESEARCH TECH documented in this encounter Plan of Treatment Upcoming Encounters Date Type Specialty Care Team Description 12/20/2021 Office Visit Wound Care Luis Camara, PALOMOM [address] [place], [place] [phone] (Wo rk) 01/21/2022 PRE VISIT Gastroenterology Landon Warren, *-*WANDAIN G RECORDS*-* MD Luis Fernando [address] [phone] (Wo rk) 01/21/2022 Office Visit Gastroenterology Juanis Levi [address] [place] [phone] Luis Fernando Miles MD [address] [id number] documented as of this encounter Visit Diagnoses Diagnosis ERRONEOUS ENCOUNTER--DISREGARD - Primary documented in this encounter Care Teams Regional Operations Director Relationship Specialty Start Date End Date Luis Fernando Magana PCP - General Family Practice 12/07/16 01/19/[address] [address] documented as of this encounter
--- OUTSIDE RECORDS SUMMARY | 2021-12-13 12:36 | XMS_ITS | Encounter Summary ---
:1980 Author Organization [place] Address [address] [facility] [address] Care Team Providers Name Role Phone Luis Fernando Magana Primary Care Provider Reason for Visit Reason Onset Date Comments Erroneous encounter-disregard 01/23/2017 Encounter Details Date Type Department Care Team Description 01/23/2017 Office Visit [facility] Edgar Alfredo ERRONEOUS Clinic Ashly Gauthier MD ENCOUNTER--DISREGARD [address] [place] (Primary Dx) [address] [place] [phone] Social History Tobacco Use Types Packs/Day Years Used Date Smoking Tobacco: Every Day Cigarettes 0.1 10 Smokeless Tobacco: Never Comments: 5 cigarettes a day Alcohol Use Standard Drinks/Week Comments Yes 0 (1 standard drink = 0.6 oz pure Stoppe d after found out alcohol) Sex Assigned at Date Recorded Female 01/14/2020 10:57 AM DIESEL LUBE TECH documented as of this encounter Progress Notes Edgar Alfredo MD - 01/23/2017 1:15 PM CST This encounter was opened in error. Please disregard. EL LUBE TECH documented in this encounter Plan of Treatment Upcoming Encounters Date Type Specialty Care Team Description 12/20/2021 Office Visit Wound Care Luis Camara, PALOMOM [address] [place], [place] [address] (Wo rk) 01/21/2022 PRE VISIT Gastroenterology Landon Warren, *-*WANDAIN G RECORDS*-* MD Luis Fernando [address] [phone] (Wo rk) 01/21/2022 Office Visit Gastroenterology Juanis Levi [address] [place] [phone] Luis Fernando Miles MD [address] [address] documented as of this encounter Visit Diagnoses Diagnosis ERRONEOUS ENCOUNTER--DISREGARD - Primary documented in this encounter Care Teams Clerk Rating Relationship Specialty Start Date End Date Luis Fernando Magana PCP - General Family Practice 12/07/16 01/19/[address] [address] documented as of this encounter
--- OUTSIDE RECORDS SUMMARY | 2021-12-13 12:36 | XMS_ITS | Encounter Summary ---
:1980 Author Organization [place] Address [address] [facility] [place] [address] Care Team Providers Name Role Phone Luis Fernando Magana Primary Care Provider Reason for Visit Reason Comments RECHECK Encounter Details Date Type Department Care Team Description 01/16/2017 Office Visit [facility] Mecca Cyr S/P e mergency hysterectomy (Primary Dx); [facility] MD Christopher Slow transit constipation; [place] [address] RONNIE Wound infection [address] [place] [facility] [place] [place] [facility] [address] [address] [place], [place] (Work) [address] [phone] Social History Tobacco Use Types Packs/Day Years Used Date Smoking Tobacco: Every Day Cigarettes 0.1 10 Smokeless Tobacco: Never Comments: 5 cigarettes a day Alcohol Use Standard Drinks/Week Comments Yes 0 (1 standard drink = 0.6 oz pure Stoppe d after found out alcohol) Sex Assigned at Date Recorded Female 01/14/2020 10:57 AM PHYSICIAN CHIEF OF PATHOLOGY documented as of this encounter Last Filed Vital Signs Vital Sign Reading Time Taken Comments Blood Pressure 119/78 01/16/2017 1:31 PM PHYSICIAN CHIEF OF PATHOLOGY Pulse 87 01/16/2017 1:31 PM PHYSICIAN CHIEF OF PATHOLOGY Temperature - - Respiratory Rate - - [...] at that time Mecca Cyr MD FACOG ICIAN CHIEF OF PATHOLOGY documented in this encounter Nursing Notes Antonella Castro CMA - 01/16/2017 1:30 PM CST Chief Complaint Patient presents with ??? RECHECK ICIAN CHIEF OF PATHOLOGY documented in this encounter Plan of Treatment Upcoming Encounters Date Type Specialty Care Team Description 12/20/2021 Office Visit Wound Care Luis Camara DPM 909 [place] [address] (Wo rk) 01/21/2022 PRE VISIT Gastroenterology Landon Warren, *-*INCOMIN G RECORDS*-* MD Luis Fernando [address] [facility] [address] [place], [place] [phone] (Wo rk) 01/21/2022 Office Visit Gastroenterology Juanis Levi [address] [place] [phone] Luis Fernando Miles MD [address] [facility] [address] [place], [place] [address] documented as of this encounter Visit Diagnoses Diagnosis S/P emergency hysterectomy - Pr imary 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
--- OUTSIDE RECORDS SUMMARY | 2021-12-13 12:36 | XMS_ITS | Encounter Summary ---
:1980 Author Organization [place] Address [address] [facility] [address] Care Team Providers Name Role Phone Luis Fernando Magana Primary Care Provider Reason for Visit Reason Onset Date Comments Forms 03/12/2017 extended leave Encounter Details Date Type Department Care Team Description 03/12/2017 Telephone [facility] Women's Nurse, [facility] Wh[facility] Forms (extended leave) Clinic [place] [address] [facility] Professional Bldg [facility] [address] [place], [place] [phone] Social History Tobacco Use Types Packs/Day Years Used Date Smoking Tobacco: Every Day Cigarettes 0.1 10 Smokeless Tobacco: Never Comments: 5 cigarettes a day Alcohol Use Standard Drinks/Week Comments Yes 0 (1 standard drink = 0.6 oz pure Stoppe d after found out alcohol) Sex Assigned at Date Recorded Female 01/14/2020 10:57 AM THERMODYNAMICS ENGINEER documented as of this encounter Miscellaneous Notes Telephone Encounter - Gregoria Villanueva RN - 03/13/2017 3:[address] Cyr approved 3 more months of assistance for Stephani. Form was signed and faxed back to [facility].Scanned into chart. Copy emailed to patient. MODYNAMICS ENGINEER Telephone Encounter - Gregoria Villanueva RN - 03/12/2017 12:41 PM CST Spoke with Stephani who is a couple months and had a premature baby that was in NICU here andthen transferred to [facility] to be closer to home. Her baby is home now and she is not ready to go back to work. She is getting assistance with housing, food, and monthly funding. She says that [facility] MD to sign a form stating that the patient had a complicated post- period in order for these services to be continued. Patient will email them to clinic for review. MODYNAMICS ENGINEER documented in this encounter Plan of Treatment Upcoming Encounters Date Type Specialty Care Team Description 12/20/2021 Office Visit Wound Care Luis Camara, [place] [address] [place] [address] (Wo rk) 01/21/2022 PRE VISIT Gastroenterology Landon Warren, *-*HEATHER G RECORDS*-* MD Luis Fernando [address] [place] [phone] (Wo rk) 01/21/2022 Office Visit Gastroenterology Juanis Levi [address]50 [place] [phone] Luis Fernando Miles MD [address] [place] [address] documented as of this encounter Visit Diagnoses Not on filedocumented in this encounter Care Teams Cloth Printing Inspector Relationship Specialty Start Date End Date Luis Fernando Magana PCP - General Family Practice 12/07/16 01/19/[address] [address] documented as of this encounter
--- OUTSIDE RECORDS SUMMARY | 2021-12-13 12:36 | XMS_ITS | Encounter Summary ---
:1980 Author Organization [place] Address [address] [facility] [address] Care Team Providers Name Role Phone Luis Fernando Magana Primary Care Provider Reason for Visit Reason Onset Date Comments Refill Request 01/02/2017 Subutex Encounter Details Date Type Department Care Team Description 01/02/2017 Refill [facility] Edgar Alfredo, Ref ill Request (Subutex) Clinic [place] [address] [place] [address] [place] [phone] (Wo rk) Social History Tobacco Use Types Packs/Day Years Used Date Smoking Tobacco: Every Day Cigarettes 0.1 10 Smokeless Tobacco: Never Comments: 5 cigarettes a day Alcohol Use Standard Drinks/Week Comments Yes 0 (1 standard drink = 0.6 oz pure Stoppe d after found out alcohol) Sex Assigned at Date Recorded Female 01/14/2020 10:57 AM LIFE EDUCATOR documented as of this encounter Miscellaneous Notes Telephone Encounter - Edgar Alfredo MD - 01/03/2017 12:44 PM CST Please call in Subutex ordered EDUCATOR Telephone Encounter - Laura Fried RN - 01/03/2017 8:48 AM CST Controlled Substance Refill Request for Subutex Last refill: 12/05/16, 120 tablets, 24 day supply per [facility] Last clinic visit: 10/10/16 Next appt: 01/23/17 Controlled substance agreement on file: No. Documentation in problem list reviewed: Yes Processing: Fax Rx to pt's pharmacy RX monitoring program ([place]) reviewed: MUSIC PROMOTER reviewed- Pt received 2 prescriptions for oxycodone frommindy Leyva [facility] profile: [email or web address] Thank you! Laura Fried RN EDUCATOR Telephone Encounter - oDra Merchant - 01/02/2017 1:44 PM CST Reason for Call: Other prescription Detailed comments: Pt states that she discharged from the hospital on 12/27/16, and would like a refill on Subutex Phone Number Patient can be reached at: Home number on file [phone] (home) Best Time: Anytime Can we leave a detailed message on this number? YES Call taken on 01/02/2017 at 1:44 PM by Dora Merchant EDUCATOR documented in this encounter Plan of Treatment Upcoming Encounters Date Type Specialty Care Team Description 12/20/2021 Office Visit Wound Care Luis Camara DPM 909 [place] [address] (Wo rk) 01/21/2022 PRE VISIT Gastroenterology Landon Warren, *-*WANDAIN G RECORDS*-* MD Luis Fernando [address] [address] (Wo rk) 01/21/2022 Office Visit Gastroenterology Juanis Levi 24[address] [place] [phone] Luis Fernando Miles MD 6 [facility] [address] [place] [address] documented as of this encounter Visit Diagnoses Diagnosis Uncomplicated opioid dependence (H) Opioid type dependence, unspecified documented in this encounter Care Teams Behavioral Medical Director Relationship Specialty Start Date End Date Luis Fernando Magana PCP - General Family Practice 12/07/16 01/19/[address] [address] documented as of this encounter
--- OUTSIDE RECORDS SUMMARY | 2021-12-13 12:36 | XMS_ITS | Encounter Summary ---
:1980 Author Organization [place] Address [address] [place] [address] Care Team Providers Name Role Phone Luis Fernando Magana Primary Care Provider Encounter Details Date Type Department Care Team Description 04/07/2017 Telephone [facility] Nithya Alfredo MD [place] [address] [facility] [address] [place], [place] [address] [phone] [place] [phone] Social History Tobacco Use Types Packs/Day Years Used Date Smoking Tobacco: Every Day Cigarettes 0.1 10 Smokeless Tobacco: Never Comments: 5 cigarettes a day Alcohol Use Standard Drinks/Week Comments Yes 0 (1 standard drink = 0.6 oz pure Stoppe d after found out alcohol) Sex Assigned at Date Recorded Female 01/14/2020 10:57 AM CLOTH CLASSER documented as of this encounter Miscellaneous Notes Telephone Encounter - Edgar Alfredo MD - 04/07/2017 12:38 PM CST Called patient re: missed appointment Please add on 04/10/17 at 2:30 Bridge ordered H CLASSER documented in this encounter Plan of Treatment Upcoming Encounters Date Type Specialty Care Team Description 12/20/2021 Office Visit Wound Care Luis Camara, PALOMOM [address] [place] [address] (Wo rk) 01/21/2022 PRE VISIT Gastroenterology Landon aWrren, *-*WANDAIN G RECORDS*-* MD Luis Fernando [address] [phone] (Wo rk) 01/21/2022 Office Visit Gastroenterology Juanis Levi [address] [place] [phone] Luis Fernando Miles MD [address] [address] documented as of this encounter Visit Diagnoses Diagnosis Uncomplicated opioid dependence (H) Opioid type dependence, unspecified documented in this encounter Care Teams Pediatric Physical Therapist Relationship Specialty Start Date End Date Luis Fernando Magana PCP - General Family Practice 12/07/16 01/19/[address] [address] documented as of this encounter
--- OUTSIDE RECORDS SUMMARY | 2021-12-13 12:36 | XMS_ITS | Encounter Summary ---
:1980 Author Organization [place] Address [address] [facility] [place] [address] Care Team Providers Name Role Phone Luis Fernando Magana Primary Care Provider Reason for Visit Reason Comments Medication Refill WELLBUTRIN SR 150 MG 12 hr t ablet Encounter Details Date Type Department Care Team Description 05/26/2017 Refill [facility] Edgar Alfredo, Med ication Refill Clinic Ashly VÁSQUEZ (WELLBUTRIN SR [address] MG [address] [place] hr tablet) [address] [place] [phone] (Wo rk) Social History Tobacco Use Types Packs/Day Years Used Date Smoking Tobacco: Every Day Cigarettes 0.1 10 Smokeless Tobacco: Never Comments: 5 cigarettes a day Alcohol Use Standard Drinks/Week Comments Yes 0 (1 standard drink = 0.6 oz pure Stoppe d after found out alcohol) Sex Assigned at Date Recorded Female 01/14/2020 10:57 AM WILDLIFE BIOLOGY INTERNSHIP documented as of this encounter Miscellaneous Notes [...] Care Luis Camara DPM 9[address] [place] [address] (Wo rk) 01/21/2022 PRE VISIT Gastroenterology Landon Warren, *-*HEATHER G RECORDS*-* MD Luis Fernando [address] [address] (Wo rk) 01/21/2022 Office Visit Gastroenterology Juanis Levi [address] [place] [phone] Luis Fernando Miles MD 6 [facility] [address] [place] [address] documented as of this encounter Visit Diagnoses Diagnosis Major depressive disorder, recurrent epi sode, moderate (H) Major depressive disorder, recurrent epi sode, moderate Uncomplicated opioid dependence (H) Opioid type dependence, unspecified documented in this encounter Care Teams Horse Racetrack Manager Relationship Specialty Start Date End Date Luis Fernando Magana PCP - General Family Practice 12/07/16 01/19/[address] [address] documented as of this encounter
--- OUTSIDE RECORDS SUMMARY | 2021-12-13 12:36 | XMS_ITS | Encounter Summary ---
:1980 Author Organization [place] Address [address] [facility] [place] [address] Care Team Providers Name Role Phone Luis Fernando Magana Primary Care Provider Reason for Visit Reason Comments Addiction Problem Encounter Details Date Type Department Care Team Description 04/24/2017 Office Visit [facility] Edgar Alfredo Uncomplic ated opioid Clinic Ashly Gauthier MD dependence (H) [address] [place] [address] [place] [phone] Social History Tobacco Use Types Packs/Day Years Used Date Smoking Tobacco: Every Day Cigarettes 0.1 10 Smokeless Tobacco: Never Comments: 5 cigarettes a day Alcohol Use Standard Drinks/Week Comments Yes 0 (1 standard drink = 0.6 oz pure Stoppe d after found out alcohol) Sex Assigned at Date Recorded Female 01/14/2020 10:57 AM SPONGE CLIPPER documented as of this encounter Last Filed Vital Signs Vital Sign Reading Time Taken Comments Blood Pressure 112/66 04/24/2017 4:44 PM SPONGE CLIPPER Pulse 86 04/24/2017 4:44 PM SPONGE CLIPPER Temperature 37 ??C (98.6 ??F) 04/24/2017 4:44 PM SPONGE CLIPPER Respiratory Rate 12 04/24/2017 4:44 PM SPONGE CLIPPER Oxygen Saturation 100% 04/24/2017 4:44 PM SPONGE CLIPPER Inhaled Oxygen Concentration - - Weight 82.1 kg (181 lb) 04/24/2017 4:44 PM SPONGE CLIPPER Height - - Body Mass Index 29.21 [...] contact you when it is ready to corn picker You are at risk for overdose [...] is generally not enough to lead to shelter recovery. This may include having some type [...] one. The addiction medicine clinic number is [phone]. If you cannot make your appointment please call the office and reschedule immediately. If you are out of medication a bridge can be sent to your pharmacy to last until the date of your rescheduled appointment. Our clinic is open from Friday-Friday 0800-4:30pm and there is not an SECURITY SALES MANAGER after hours service. If medical care is [...] you do not run out of medications. [facility] does not accept [place] MyClasses or [employer] Medical assistance insurance. GE CLIPPER documented in this encounter Progress Notes Edgar [...] [place] Board of Pharmacy Data Base Reviewed: YES; [...] So Luciano MD; Location: [facility] OR ??? FIBERGLASS FABRICATOR SURGERY ??? ORTHOPEDIC SURGERY ??? THORACIC SURGERY [...] Panel 13 Result Value Ref Range Cannabinoids ([id number]) Not Detected NDET^Not Detected ng/mL Phencyclidine (Phencyclidine) [...] ng/mL 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 FOR [facility] USE OF HIGH RISK MEDICATION High Risk [...] visit in 2 MONTHS Edgar Alfredo MD [facility] documented in this [...] calculated from the following: Height as of 12/07/16: 5' 6 (1.676 m). Weight as of this encounter: 181 lb (82.1 kg). Medication Reconciliation: complete Sabina Mckay CMA GE CLIPPER documented in this encounter Plan of Treatment Upcoming Encounters Date Type Specialty Care Team Description 12/20/2021 Office Visit Wound Care Luis Camara DPM [address] [place], [place] [phone] (Wo rk) 01/21/2022 PRE VISIT Gastroenterology Landon Warren, *-*INCOMIN G RECORDS*-* MD Luis Fernando [address] [place] [phone] (Wo rk) 01/21/2022 Office Visit Gastroenterology Juanis Levi [address] [place] [phone] Luis Fernando Miles MD [address] [place] [phone] documented as of this encounter Procedures Procedure Name Priority Date/Time Associated Diagnosis Comme nts URINE DRUGS OF Routine 04/24/2017 5:16 PM Uncomplicated opioid Results for this ABUSE SCREEN PANEL SPONGE CLIPPER dependence (H) procedu re are in 13 the results section. documented in this encounter Results (ABNORMAL) Urine Drugs of Abuse Screen Panel 13 (04/24/2017 5:16 PM SPONGE CLIPPER) [facility] Method Time Signature Cannabinoids Not Detected NDET^Not 04/24/2017 [facility] (34-frq-6-carbox Detected 6:02 PM SPONGE CLIPPER y-9-THC) ng/mL Comment: Cutoff for a negative cannabino id is 50 ng/mL or less. Phencyclidine Not Detected NDET^Not Detected 04/24/2017 6:02 PM [facility] (Phencyclidine) ng/mL SPONGE CLIPPER Comment: Cutoff for a negative PCP is 25 ng/mL or less. Cocaine (Benzoylecgonine) Not Detected NDET^Not Detected 0 04/24/2017 6:02 PM [facility] ng/mL SPONGE CLIPPER Comment: Cutoff for a negative cocaine i s 150 ng/ml or less. Methamphetamine Not Detected NDET^Not 04/24/2017 6:02 PM [facility] (d-Methamphetamine) Detected ng/mL SPONGE CLIPPER Comment: Cutoff for a negative methamphe tamine is 500 ng/ml or less. Opiates (Morphine) Not Detected NDET^Not Detected 04/25/19 18 6:02 PM SPONGE CLIPPER [facility] ng/mL Comment: Cutoff for a negative opiate is 100 ng/ml or less. Amphetamine Not Detected NDET^Not Detected 04/24/2017 6:02 P M [facility] (d-Amphetamine) ng/mL SPONGE CLIPPER Comment: Cutoff for a negative amphetami ne is 500 ng/mL or less. Benzodiazepines Not Detected NDET^Not Detected 04/24/2017 6: 02 PM [facility] (Nordiazepam) ng/mL SPONGE CLIPPER Comment: Cutoff for a negative benzodiaz epine is 150 ng/ml or less. Tricyclic Antidepressants Not Detected NDET^Not Detected 0 04/24/2017 6:02 PM [facility] (Desipramine) ng/mL SPONGE CLIPPER Comment: Cutoff for a negative tricyclic antidepressant is 300 ng/ml or less. Methadone (Methadone) Not Detected NDET^Not Detected 018 6:02 PM [facility] ng/mL SPONGE CLIPPER Comment: Cutoff for a negative methadone is 200 ng/ml or less. Barbiturates Not Detected NDET^Not Detected 04/24/2017 6:02 PM [facility] (Butalbital) ng/mL SPONGE CLIPPER Comment: Cutoff for a negative barbituat e is 200 ng/ml or less. Oxycodone (Oxycodone) Not Detected NDET^Not Detected 018 6:02 PM [facility] ng/mL SPONGE CLIPPER Comment: Cutoff for a negative Oxycodone is 100 ng/mL or less. Propoxyphene Not Detected NDET^Not Detected 04/24/2017 6:02 PM [facility] (Norpropoxyphene) ng/mL SPONGE CLIPPER Comment: Cutoff for a negative propoxyph tina is 300 ng/ml or less Buprenorphine Detected, NDET^Not 04/24/2017 6:02 PM [facility] (Buprenorphine) Abnormal Result Detected ng/mL SPONGE CLIPPER (A) Comment: Cutoff for a positive buprenorphine is g reater than 10 ng/ml. This is an unconfirmed screening result to be used for medical purposes only. Order [id number] for confirmation or indivi dual confirmation tests to [facility]. Specimen Anatomical Collection Method Collection Time Receive d Time (Source) Location / / Volume Laterality Urine specimen 04/24/2017 5:16 PM 018 5:17 (specimen) SPONGE CLIPPER PM SPONGE CLIPPER Edgar Alfredo MD LAB - URINE ORDERABLES Performing Organization Address City/State/ZIP [place] [address] [facility] [address] [address] [facility] documented in this encounter Visit Diagnoses Diagnosis Uncomplicated opioid dependence (H) Opioid type dependence, unspecified documented in this encounter Care Teams Leader Assembler Relationship Specialty Start Date End Date Luis Fernando Magana PCP - General Family Practice 12/07/16 01/19/[address] [address] documented as of this encounter
--- OUTSIDE RECORDS SUMMARY | 2021-12-13 12:36 | XMS_ITS | Encounter Summary ---
:1980 Author Organization [place] Address [address] [facility] [place] [address] Care Team Providers Name Role Phone Luis Fernando Magana Primary Care Provider Reason for Visit Reason Onset Date Comments Refill Request 03/05/2017 buprenorphine (SUBUT EX) 2 MG SUBL Encounter Details Date Type Department Care Team Description 03/05/2017 Refill [facility] Edgar Alfredo, Ref ill Request Clinic Ashly VÁSQUEZ (buprenorphine (SUBUTEX) [address] [place] 2 MG SUBL) [address] [place] [phone] (Wo rk) Social History Tobacco Use Types Packs/Day Years Used Date Smoking Tobacco: Every Day Cigarettes 0.1 10 Smokeless Tobacco: Never Comments: 5 cigarettes a day Alcohol Use Standard Drinks/Week Comments Yes 0 (1 standard drink = 0.6 oz pure Stoppe d after found out alcohol) Sex Assigned at Date Recorded Female 01/14/2020 10:57 AM CHRONIC DISEASE MANAGER documented as of this encounter Miscellaneous Notes Telephone Encounter - Edgar Alfredo MD - 03/06/2017 2:21 PM CST Spoke to patient Bridge called in NIC DISEASE MANAGER Telephone Encounter - Santosh Pyle RN - [...] acreeda. Pt's insurance is not accepted at [facility] and but will be changed on March 20. Pt's insurance is not covered in clinic and pt will be switching to [facility] next month Will forward to Dr. Alfredo. Santosh Pyle RN NIC DISEASE MANAGER Telephone Encounter - Santosh Pyle RN - 03/06/2017 11:56 AM CST Trapeze Artist attempted to call pt, No answer. LVM for Pt to call clinic back and schedule an Appt at [phone]. Santosh Pyle RN NIC DISEASE MANAGER Telephone Encounter - Edgar Alfredo MD - 03/06/2017 10:58 AM CST No refill until appointment is made NIC DISEASE MANAGER Telephone Encounter - Santohs Pyle RN - 03/05/2017 11:16 AM CST buprenorphine (SUBUTEX) 2 MG SUBL sublingual tablet Controlled Substance Refill Request Last refill: 01/03/17 Last clinic visit: 10/10/16 Next appt: none scheduled Documentation in problem list reviewed: Yes Processing: call/fax RX monitoring program ([place]MP) reviewed: Rx for Oxycodone 10 and 20 mg tabs on 12/27/16. [place]MP profile: [email or web address] Pt had Appt's scheduled on 01/23/17, 12/23/16, 11/26/16 and didn't make it to any of these Appt's Last Appt was on 10/10/16. No Appt's scheduled. Dr. Alfredo would you like to see Pt in the clinic again? Santosh Pyle RN NIC DISEASE MANAGER Telephone Encounter - Dora Merchant - 03/05/2017 10:40 AM CST Last Written Prescription Date: 01/03/17 Last Fill Quantity: 100, # refills: 0 Last Office Visit with [facility] or [facility] prescribing provider: 10/13/16 Future Office Visit: Requested Prescriptions Pending Prescriptions Disp Refills ??? buprenorphine (SUBUTEX) 2 MG SUBL sublingual tablet 100 tablet 0 Sig: Place 1 tablet (2 mg) under the tongue 5 times daily There is no refill protocol information for this order NIC DISEASE MANAGER documented in this encounter Plan of Treatment Upcoming Encounters Date Type Specialty Care Team Description 12/20/2021 Office Visit Wound Care Luis Camara, [place] [address] [place] [address] (Wo rk) 01/21/2022 PRE VISIT Gastroenterology Landon Warren, *-*HEATHER G RECORDS*-* MD Luis Fernando [address] [place] [phone] (Wo rk) 01/21/2022 Office Visit Gastroenterology Juanis Levi [address] [place] [phone] Luis Fernando Miles MD [address] [place] [address] [phone] documented as of this encounter Visit Diagnoses Diagnosis Uncomplicated opioid dependence (H) Opioid type dependence, unspecified documented in this encounter Care Teams Dog Beautician Relationship Specialty Start Date End Date Luis Fernando Magana PCP - General Family Practice 12/07/16 01/19/18 [place] [phone] documented as of this encounter
--- OUTSIDE RECORDS SUMMARY | 2021-12-13 12:36 | XMS_ITS | Encounter Summary ---
:1980 Author Organization [place] Address [address] [facility] [place] [address] Care Team Providers Name Role Phone Luis Fernando Magana Primary Care Provider Reason for Visit Reason Onset Date Comments Erroneous encounter-disregard 04/11/2017 Encounter Details Date Type Department Care Team Description 04/10/2017 Office Visit [facility] Edgar Alfredo ERRONEOUS Clinic Ashly Gauthier MD ENCOUNTER--DISREGARD [address] [place] (Primary Dx) [address] [place] [phone] Social History Tobacco Use Types Packs/Day Years Used Date Smoking Tobacco: Every Day Cigarettes 0.1 10 Smokeless Tobacco: Never Comments: 5 cigarettes a day Alcohol Use Standard Drinks/Week Comments Yes 0 (1 standard drink = 0.6 oz pure Stoppe d after found out alcohol) Sex Assigned at Date Recorded Female 01/14/2020 10:57 AM HOSPICE OFFICE COORDINATOR documented as of this encounter Progress Notes Edgar Alfredo MD - 04/10/2017 2:30 PM CST This encounter was opened in error. Please disregard. ICE OFFICE COORDINATOR documented in this encounter Plan of Treatment Upcoming Encounters Date Type Specialty Care Team Description 12/20/2021 Office Visit Wound Care Luis Camara, [place] [address] [place], [place] [phone] (Wo rk) 01/21/2022 PRE VISIT Gastroenterology Landon Warren, *-*WANDAIN G RECORDS*-* MD Luis Fernando [address] [phone] (Wo rk) 01/21/2022 Office Visit Gastroenterology Juanis Levi [address] [place] [phone] Luis Fernando Miles MD [address] [phone] documented as of this encounter Visit Diagnoses Diagnosis ERRONEOUS ENCOUNTER--DISREGARD - Primary documented in this encounter Care Teams Channel Sales Manager Relationship Specialty Start Date End Date uLis Fernando Magana PCP - General Family Practice 12/07/16 01/19/[address] [address] documented as of this encounter
--- OUTSIDE RECORDS SUMMARY | 2021-12-13 12:36 | XMS_ITS | Encounter Summary ---
:1980 Author Organization [place] Address [address] [facility] [place] [address] Care Team Providers Name Role Phone Luis Fernando Magana Primary Care Provider Reason for Visit Reason Onset Date Comments Erroneous encounter-disregard 04/24/2017 Encounter Details Date Type Department Care Team Description 04/22/2017 Office Visit [facility] Edgar Alfredo ERRONEOUS Clinic Ashly Gauthier MD ENCOUNTER--DISREGARD [address] [place] (Primary Dx) [address] [place] [phone] Social History Tobacco Use Types Packs/Day Years Used Date Smoking Tobacco: Every Day Cigarettes 0.1 10 Smokeless Tobacco: Never Comments: 5 cigarettes a day Alcohol Use Standard Drinks/Week Comments Yes 0 (1 standard drink = 0.6 oz pure Stoppe d after found out alcohol) Sex Assigned at Date Recorded Female 01/14/2020 10:57 AM JAVA SOFTWARE DEVELOPER documented as of this encounter Progress Notes Edgar Alfredo MD - 04/22/2017 10:45 AM CST This encounter was opened in error. Please disregard. SOFTWARE DEVELOPER documented in this encounter Plan of Treatment Upcoming Encounters Date Type Specialty Care Team Description 12/20/2021 Office Visit Wound Care Luis Camara, [place] [address] [place], [place] [address] (Wo rk) 01/21/2022 PRE VISIT Gastroenterology Landon Warren, *-*WANDAIN G RECORDS*-* MD Luis Fernando [address] [phone] (Wo rk) 01/21/2022 Office Visit Gastroenterology Juanis Levi [address] [place] [phone] Luis Fernando Miles MD [address] [phone] documented as of this encounter Visit Diagnoses Diagnosis ERRONEOUS ENCOUNTER--DISREGARD - Primary documented in this encounter Care Teams Supervisor Briar Shop Relationship Specialty Start Date End Date Luis Fernando Magana PCP - General Family Practice 12/07/16 01/19/[address] [address] documented as of this encounter
--- OUTSIDE RECORDS SUMMARY | 2021-12-13 12:36 | XMS_ITS | Encounter Summary ---
:1980 Author Organization [place] Address [address] [place] [address] Care Team Providers Name Role Phone Luis [...] Recorded Female 01/14/2020 10:57 AM SOCIAL WORK LECTURER documented as of this encounter Miscellaneous Notes Note - Marycarmen Mohamud RN - 01/20/2017 2:10 PM CST This note was copied from a baby's chart. Phone call made to [phone] in attempt to reach mother Stephani regarding breast milk and breast feeding. There was a voicemail. I left a message for the mother to call me regarding an update. No patient information revealed, only to contact myself at the NICU phone number. It appears that no breast milk has been received from home. Donor milk will end when baby reaches 34 wks. AL WORK LECTURER documented in this encounter Plan of Treatment Upcoming Encounters Date Type Specialty Care Team Description 12/20/2021 Office Visit Wound Care Luis Camara, [place] [address] [place] [address] (Wo rk) 01/21/2022 PRE VISIT Gastroenterology Landon Warren, *-*WANDAIN G RECORDS*-* MD Luis Fernando [address] [phone] (Wo rk) 01/21/2022 Office Visit Gastroenterology Juanis Levi [address] [place] [phone] Luis Fernando Miles MD [address] [phone] documented as of this encounter Visit Diagnoses Not on filedocumented in this encounter Care Teams Returned Goods Receiving Clerk Relationship Specialty Start Date End Date Luis Fernando Magana PCP - General Family Practice 12/07/16 01/19/[address] [address] documented as of this encounter
--- OUTSIDE RECORDS SUMMARY | 2021-12-13 12:37 | XMS_ITS | Encounter Summary ---
:1980 Author Organization [place] Address [address] [facility] [place] [address] Care Team Providers Name Role Phone Luis Fernando Magana Primary Care Provider Reason for Visit Auth/Cert Specialty Diagnoses / Procedures Referred By Contact Refer red To Contact cardiac rehab nurse Diagnoses Maternity*JEAN MARIE: 03/07/2017 Rupture premature rupture of membranes (PPROM) delivered, current hospitalization [facility] [address] [place] [address] Phone: Referral ID Status Reason Start Date Expiration Date Visits Requ ested Visits Authorized [id number] 12/09/2016 12/09/2017 1 1 Encounter Details Date Type Department Care Team Description 12/24/2016 Anesthesia Event [facility] Genesis Phillip M D PeriOp Services Ann Marie Walker MD [address] [place] [address] [address] [place] [address] Anesthesia Record Procedure Summary Procedure [...] 1948; No; 12/24/161947 by 12/25/16 1545 by /GI/CLAY STAIN MIXER Pelvic Kassy Monteiro RN Drake, Vicki 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; 16 fr RETIRED ETT 12/24/16; 1956; Mask [...] at Date Recorded Female 01/14/2020 10:57 AM LOCOMOTIVE REPAIRER DIESEL documented as of this encounter OR Notes Anesthesia Postprocedure Evaluation - Genesis Phillip MD - 12/25/2016 2:40 AM LOCOMOTIVE REPAIRER DIESEL Patient: Stephani King Procedure(s): Section Immediate Hysterectomy, [...] Phillip MD December 25, 2016 2:40 AM [facility] Anesthesia Procedure Notes - Genesis Phillip MD - 12/25/2016 12:20 AM CSTAssociated Order(s): ANE UU PERIPHERAL/PARAVETEBRAL BLOCK Peripheral Nerve Block Procedure Note Staff: Anesthesiologist: GENESIS PHILLIP Resident/NURSES' REGISTRY DIRECTOR: ANN MARIE HAZEL Block performed by resident/NURSES' REGISTRY DIRECTOR in the presence of a teaching physician [...] No Infusion Method: Single Shot Complications: None MOTIVE REPAIRER DIESEL Anesthesia Preprocedure Evaluation - Genesis Phillip MD - 12/24/2016 11:25 PM LOCOMOTIVE REPAIRER DIESEL Anesthesia Evaluation . Pt has had prior [...] with Patient. Consented to blood products. . MOTIVE REPAIRER DIESEL Anesthesia Procedure Notes - Erika Tobar APRN CRNA - 12/24/2016 9:12 PM CSTAssociated Order(s): ANE UU A LINE CATHETER PLACEMENT Arterial Line Procedure Note Staff: Anesthesiologist: GENESIS PHILLIP Resident/NURSES' REGISTRY DIRECTOR: ANN MARIE HAZEL Arterial line performed by resident/NURSES' REGISTRY DIRECTOR in presence of a teaching physician Location: [...] Yes IBP within 10% of NIBP: Yes MOTIVE REPAIRER DIESEL documented in this encounter Miscellaneous Notes Anesthesia [...] (Last set prior to Anesthesia Care Transfer) NURSES' REGISTRY DIRECTOR VITALS 12/24/2016 2333 - 12/25/2016 0022 12/25/2016 Pulse: 85 SpO2: (!) 88 % Electronically Signed By: Ann Marie Hazel MD December 25, 2016 12:22 AM MOTIVE REPAIRER DIESEL documented in this encounter Plan of Treatment Upcoming Encounters Date Type Specialty Care Team Description 12/20/2021 Office Visit Wound Care Luis Camara, [place] [address] [place], [place] [phone] (Wo rk) 01/21/2022 PRE VISIT Gastroenterology Landon Warren, *-*WANDAIN G RECORDS*-* MD Luis Fernando [address] [address] (Wo rk) 01/21/2022 Office Visit Gastroenterology Juanis Levi [address] [place] [phone] Luis Fernando Miles MD [address] [address] documented as of this encounter Procedures Procedure Name Priority Date/Time Associated Diagnosis Comme nts ANE Routine 12/25/2016 12:22 AM LOCOMOTIVE REPAIRER DIESEL PERIPHERAL/PARAVETEBRAL BLOCK Procedure Note - Genesis Phillip MD - 12/25/2016 12:20 AM CSTThis note is in progress. Formatting of this note migh t be different from the original. Peripheral Nerve Block Proce dure Note Staff: Anesthesiologist: JOSELUIS PHILLIP Resident/NURSES' REGISTRY DIRECTOR: IMELDA HAZEL Block performed by resident /NURSES' REGISTRY DIRECTOR in the presence of a teaching physician [...] LINE CATHETER PLACEMENT Routine 12/24/2016 9:12 PM LOCOMOTIVE REPAIRER DIESEL Procedure Note - Km Tobar APRN CRNA - 12/24/2016 9:12 PM CSTThis note is in progress. Formatting of this note migh t be different from the original. Arterial Line Procedure Note Staff: Anesthesiologist: JOSELUIS PHILLIP Resident/NURSES' REGISTRY DIRECTOR: IMELDA HAZEL Arterial line performed by resident/NURSES' REGISTRY DIRECTOR in presence of a teaching physician Location: [...] cell unit New Bag 12/24/2016 10:05 PM LOCOMOTIVE REPAIRER DIESEL STAT, On Fri12/24/16 at 1940 New Bag 12/24/2016 8:10 PM LOCOMOTIVE REPAIRER DIESEL Transfuse red blood cell unit New Bag 12/24/2016 8:15 PM LOCOMOTIVE REPAIRER DIESEL STAT, On Fri12/24/16 at 1941 Inactive Administered Medications - up to 3 most recent administrations Medication Order MAR Action Action Date Dose Rate Site 0.9% sodium chloride infusion New Bag 12/24/2016 10:04 PM LOCOMOTIVE REPAIRER DIESEL CONTINUOUS PRN, Anesthesia Intra-op, Starting on Fri12/24/16 at 1943, Until Fri12/25/16 at 0019 New Bag 12/24/2016 9:42 PM LOCOMOTIVE REPAIRER DIESEL New Bag 12/24/2016 7:43 PM LOCOMOTIVE REPAIRER DIESEL bupivacaine 0.25 % - EPINEPHrine 1:200,000 Given 12/24/2016 11:50 PM LOCOMOTIVE REPAIRER DIESEL 20 mLs injection PRN, Starting on Fri12/24/16 at 2350, Anesthesia Intra-op bupivacaine liposome (EXPAREL) 1.3 % LA inj Given 08/2016 11:50 PM LOCOMOTIVE REPAIRER DIESEL 20 mLs susp 20 mL 20 mL, Infiltration, DURING SURGERY, Starting on Fri12/24/16 at 2136, For 1 dose, Invert vial to re-suspend particles immediately prior to withdrawal from vial. Stable for 4 hours at room temperature once removed from vial., Intra-procedure calcium chloride injection Given 12/24/2016 9:53 PM LOCOMOTIVE REPAIRER DIESEL 1 g PRN, Starting on Fri12/24/16 at 2037, Anesthesia Intra-op Given 12/24/2016 8:57 PM LOCOMOTIVE REPAIRER DIESEL 1 g Given 12/24/2016 8:37 PM LOCOMOTIVE REPAIRER DIESEL 1 g ceFAZolin (ANCEF) 1 g vial to attach to NS 100 Given 02/24/2016 11:21 PM LOCOMOTIVE REPAIRER DIESEL 1 g ml bag for ADULT or 50 ml bag for PEDS Routine, Intravenous, PRN, Starting on Fri12/24/16 at 1939, Anesthesia Intra-op Given 12/24/2016 9:07 PM LOCOMOTIVE REPAIRER DIESEL 1 g Given 12/24/2016 7:39 PM LOCOMOTIVE REPAIRER DIESEL 2 g ePHEDrine injection Given 12/24/2016 8:58 PM LOCOMOTIVE REPAIRER DIESEL 5 mg Intravenous, PRN, Starting on Fri12/24/16 at 2024, Anesthesia Intra-op Given 12/24/2016 8:35 PM LOCOMOTIVE REPAIRER DIESEL 10 mg Given 12/24/2016 8:24 PM LOCOMOTIVE REPAIRER DIESEL 10 mg fentaNYL (PF) (SUBLIMAZE) injection Given 12/24/2016 11:12 PM LOCOMOTIVE REPAIRER DIESEL 100 mcg PRN, moderate to severe pain, Administer over 3-5 Minutes, Starting on Fri12/24/16 at 2259, Anesthesia Intra-op Given 12/24/2016 10:59 PM LOCOMOTIVE REPAIRER DIESEL 100 mcg HYDROmorphone (DILAUDID) injection Given 12/25/2016 12:15 AM LOCOMOTIVE REPAIRER DIESEL 0.5 mg PRN, moderate to severe pain, Starting on Fri12/24/16 at 2301, Anesthesia Intra-op Given 12/25/2016 12:02 AM LOCOMOTIVE REPAIRER DIESEL 0.5 mg Given 12/24/2016 11:05 PM LOCOMOTIVE REPAIRER DIESEL 0.5 mg lactated ringers infusion New Bag 12/24/2016 8:17 PM LOCOMOTIVE REPAIRER DIESEL at 125 mL/hr, Intravenous, CONTINUOUS, Pre-procedure, Starting on Fri12/24/16 at 1900, Until Fri12/25/16 at 0150 New Bag 12/24/2016 7:35 PM LOCOMOTIVE REPAIRER DIESEL midazolam (VERSED) injection Given 12/24/2016 9:16 PM LOCOMOTIVE REPAIRER DIESEL 2 mg Intravenous, Administer over 2 Minutes, PRN, anxiety, Starting on Fri12/24/16 at 2029, Anesthesia Intra-op Given 12/24/2016 8:29 PM LOCOMOTIVE REPAIRER DIESEL 2 mg ondansetron (ZOFRAN) injection Given 12/24/2016 11:29 PM LOCOMOTIVE REPAIRER DIESEL 4 mg Intravenous, PRN, nausea, vomiting, Administer over 2-5 Minutes, Starting on Fri12/24/16 at 2329, Anesthesia Intra-op oxytocin (PITOCIN) 30 units in New Bag 12/24/2016 8:05 PM LOCOMOTIVE REPAIRER DIESEL 300 mL/hr 300 mL/hr 500 mL 0.9% NaCl infusion CONTINUOUS PRN, Starting on Fri12/24/16 at 2005, Anesthesia Intra-op phenylephrine (VINCENT-SYNEPHRINE) injection 1 Bolus 12/24/2016 9:33 PM LOCOMOTIVE REPAIRER DIESEL 100 mcg mg 1 mg, Intravenous, CONTINUOUS PRN, Starting on Fri12/24/16 at 2013, Anesthesia Intra-op Bolus 12/24/2016 9:23 PM LOCOMOTIVE REPAIRER DIESEL 100 mcg Bolus 12/24/2016 9:13 PM LOCOMOTIVE REPAIRER DIESEL 100 mcg propofol (DIPRIVAN) injection 10 mg/mL v ial Given 12/24/2016 7:56 PM LOCOMOTIVE REPAIRER DIESEL 200 mg Intravenous, PRN, Starting on Fri12/24/16 at 1956, Anesthesia Intra-op rocuronium (ZEMURON) injection Given 12/24/2016 10:12 PM LOCOMOTIVE REPAIRER DIESEL 10 mg Intravenous, PRN, Starting on Fri12/24/16 at 2006, Anesthesia Intra-op Given 12/24/2016 9:28 PM LOCOMOTIVE REPAIRER DIESEL 30 mg Given 12/24/2016 8:54 PM LOCOMOTIVE REPAIRER DIESEL 20 mg succinylcholine (ANECTINE) injection Given 12/24/2016 7:56 PM LOCOMOTIVE REPAIRER DIESEL 200 mg Intravenous, PRN, Starting on Fri12/24/16 at 1956, Anesthesia Intra-op sugammadex (BRIDION) injection Given 12/24/2016 11:50 PM LOCOMOTIVE REPAIRER DIESEL 170 mg PRN, Starting on Fri12/24/16 at 2350, Anesthesia Intra-op Transfuse cryoprecipitate unit New 12/24/2016 11:10 PM LOCOMOTIVE REPAIRER DIESEL Routine, On Fri12/24/16 at 2311 Transfuse plasma unit New 12/24/2016 8:48 PM LOCOMOTIVE REPAIRER DIESEL Routine, On Fri12/24/16 at 2028 Transfuse platelets unit 12/24/2016 9:19 PM LOCOMOTIVE REPAIRER DIESEL Routine, On Fri12/24/16 at 2119 Transfuse red blood cell unit New 12/24/2016 8:42 PM LOCOMOTIVE REPAIRER DIESEL STAT, On Fri12/24/16 at 2034 Transfuse red blood cell unit New 12/24/2016 9:30 PM LOCOMOTIVE REPAIRER DIESEL STAT, On Fri12/24/16 at 2046 Transfuse red blood cell unit New 12/24/2016 8:59 PM LOCOMOTIVE REPAIRER DIESEL STAT, On Fri12/24/16 at 2046 Transfuse red blood cell unit New 12/24/2016 8:58 PM LOCOMOTIVE REPAIRER DIESEL STAT, On Fri12/24/16 at 2046 Transfuse red blood cell unit New 12/24/2016 8:47 PM LOCOMOTIVE REPAIRER DIESEL STAT, On Fri12/24/16 at 2046 Transfuse red blood cell unit New 12/24/2016 10:15 PM LOCOMOTIVE REPAIRER DIESEL STAT, On Fri12/24/16 at 2156 Transfuse red blood cell unit New 12/24/2016 10:50 PM LOCOMOTIVE REPAIRER DIESEL STAT, On Fri12/24/16 at 2156 Transfuse red blood cell unit New 12/24/2016 9:56 PM LOCOMOTIVE REPAIRER DIESEL STAT, On Fri12/24/16 at 2156 documented in this encounter Care Teams Patrol Deputy Sheriff Relationship Specialty Start Date End Date Luis Fernando Magana PCP - General Family Practice 12/07/16 01/19/18 [place] [address] [place] [address] documented as of this encounter
--- OUTSIDE RECORDS SUMMARY | 2021-12-13 12:37 | XMS_ITS | Encounter Summary ---
:1980 Author Organization [place] Address [address] [facility] [place] [address] Care Team Providers Name Role Phone Luis Fernando Magana Primary Care Provider Reason for Visit Reason Onset Date Comments Refill Request 12/26/2016 Subutex 2 mg, Wellbu ayaka 150 mg Encounter Details Date Type Department Care Team Description 12/26/2016 Refill [facility] Edgar Alfredo, Ref ill Request (Subutex Clinic Kayenta 2 mg, Wellbutrin [address] [place] ) [address] [place] [phone] (Wo rk) Social History Tobacco Use Types Packs/Day Years Used Date Smoking Tobacco: Every Day Cigarettes 0.1 10 Smokeless Tobacco: Never Comments: 5 cigarettes a day Alcohol Use Standard Drinks/Week Comments Yes 0 (1 standard drink = 0.6 oz pure Stoppe d after found out alcohol) Sex Assigned at Date Recorded Female 01/14/2020 10:57 AM COMMERCIAL ESTIMATOR documented as of this encounter Miscellaneous Notes Telephone Encounter - Laura Fried RN - 01/06/2017 10:04 AM CST Subutex script called in to [facility] pharmacy. Laura Fried RN ERCIAL ESTIMATOR Telephone Encounter - Edgar Alfredo MD - 01/03/2017 12:43 PM CST Please call in Subutex ordered ERCIAL ESTIMATOR Telephone Encounter - Laura Fried RN - 12/27/2016 7:55 AM CST Controlled Substance Refill Request for Subutex Last refill: 12/05/16, 120 tablets, 24 day supply Last clinic visit: 10/10/16 Next appt: 01/23/17 Controlled substance agreement on file: No. Documentation in problem list reviewed: Yes Processing: Fax Rx to pt's pharmacy RX monitoring program ([place]) reviewed: [place] [employer] G[place]EN TECHNICIAN reviewed- no concerns [place] profile: [email or web address] Thank you! Laura Fried RN ERCIAL ESTIMATOR Telephone Encounter - Mark Roldan - 12/26/2016 4:46 PM CST Pt called she had her baby early and she will be discharging from the hospital tomorrow, pt requesting a bridge of Subutex and Welbutrin until her next appt on 01/23. Pt contact info: [phone] Mark Roldan Environmental Protection Economist ERCIAL ESTIMATOR documented in this encounter Plan of Treatment Upcoming Encounters Date Type Specialty Care Team Description 12/20/2021 Office Visit Wound Care Luis Camara DPM [address] [place], [place] [address] (Wo rk) 01/21/2022 PRE VISIT Gastroenterology Landon Warren, *-*WANDAIN G RECORDS*-* MD Luis Fernando [address] [facility] [address] [place], [place] [address] (Wo rk) 01/21/2022 Office Visit Gastroenterology Juanis Levi [address] [place] [address] Luis Fernando Miles MD 6 [facility] [address] [place] [address] documented as of this encounter Visit Diagnoses Diagnosis Major depressive disorder, recurrent epi sode, moderate (H) Major depressive disorder, recurrent epi sode, moderate Uncomplicated opioid dependence (H) Opioid type dependence, unspecified documented in this encounter Care Teams Utility Bill Collector Relationship Specialty Start Date End Date Luis Fernando Magana PCP - General Family Practice 12/07/16 01/19/[address] [address] documented as of this encounter
--- OUTSIDE RECORDS SUMMARY | 2021-12-13 12:37 | XMS_ITS | Encounter Summary ---
:1980 Author Organization [place] Address [facility] [place] [address] Care Team Providers Name Role Phone Luis Fernando Magana Primary Care Provider Reason for Referral Consultation Specialty Diagnoses / Procedures Referred By Contact Refer red To Contact Marleny Kang MD [place] [phone] Referral ID Status Reason Start Date Expiration Date Visits Requ ested Visits Authorized NIZATIONAL DEVELOPMENT CONSULTANT Specialty Diagnoses / Procedures Referred By Contact Refer red To Contact Marleny Kang MD [place] [phone] Referral ID Status Reason Start Date Expiration Date Visits Requ ested Visits Authorized NIZATIONAL DEVELOPMENT CONSULTANT Reason for Visit Reason Comments Rule out rupture of membranes Auth/Cert Specialty Diagnoses / Procedures Referred By Contact Refer red To Contact school secretary Diagnoses Maternity*JEAN MARIE: 03/07/2017 Rupture premature rupture of membranes (PPROM) delivered, current hospitalization [facility] [address] [place] [address] Phone: Referral ID Status Reason Start Date Expiration Date Visits Requ ested Visits Authorized [id number] 12/09/2016 12/09/2017 1 1 Encounter Details Date Type Department Care Team Description 12/07/2016 - Hospital Encounter [facility] Autumn Leslie willie Alvarez MD [address] [place] [address] Chronic hepatitis C without hepatic coma (H) (Primary Dx); 12/27/2016 [facility] Nalini Eli MD [address] [place] [address] Placenta accreta in third trimester; [address] [facility] S/P emergency hysterectomy; [place], [place] Lashawn Patel MD [address] [place] [address] Dental caries; [address] Petrona Barone DO [address] [place] [address] S/P laparotomy [phone] So Nunez MD [address] [place] [address] Social History Tobacco Use Types Packs/Day Years Used Date Smoking Tobacco: Every Day Cigarettes 0.1 10 Smokeless Tobacco: Never Comments: 5 cigarettes a day Alcohol Use Standard Drinks/Week Comments Yes 0 (1 standard drink = 0.6 oz pure Stoppe d after found out alcohol) Sex Assigned at Date Recorded Female 01/14/2020 10:57 AM ORGANIZATIONAL DEVELOPMENT CONSULTANT documented as of this encounter Last Filed Vital Signs Vital Sign Reading Time Taken Comments Blood Pressure 119/68 12/27/2016 8:00 AM ORGANIZATIONAL DEVELOPMENT CONSULTANT Pulse 90 12/27/2016 8:00 AM ORGANIZATIONAL DEVELOPMENT CONSULTANT Temperature 36.5 ??C (97.7 ??F) 12/27/2016 8:00 AM ORGANIZATIONAL DEVELOPMENT CONSULTANT Respiratory Rate 18 12/27/2016 8:00 AM ORGANIZATIONAL DEVELOPMENT CONSULTANT Oxygen Saturation 99% 12/27/2016 8:00 AM ORGANIZATIONAL DEVELOPMENT CONSULTANT Inhaled Oxygen Concentration - - Weight 83.4 kg (183 lb 14.4 oz) 12/27/2016 6:00 AM ORGANIZATIONAL DEVELOPMENT CONSULTANT Height 167.6 cm (5' 6) 12/07/2016 2:19 PM CDT Body Mass Index 29.68 12/07/2016 2:19 PM CDT documented in this encounter Discharge Summaries Petrona Barone DO - 12/27/2016 8:18 AM CST [facility] Discharge Summary Deann King Age: [age] [...] uncomplicated. She was initially given a dilaudid BEHAVIORAL HEALTH SPECIALIST, but was transitioned to PO medications on [...] Discharge Medications: Deann King Home Medication Instructions MAILE:[id number] Printed on:12/28/16 1421 Medication Information acetaminophen (TYLENOL) 325 MG tablet [...] machinery while on narcotics. Marleny Kang MD DIE ENGRAVER PGY-3 I agree with above discharge summary Petrona Barone DO FACOG Maternal Medicine Specialist Pager: [phone] NIZATIONAL DEVELOPMENT CONSULTANT documented in this encounter Discharge Instructions Discharge InstructionsErika Villalpando RN - 12/27/2016 7:51 AM ORGANIZATIONAL DEVELOPMENT CONSULTANT Postop Instructions Activity ?? Do not lift [...] questions or concerns after you return home. NIZATIONAL DEVELOPMENT CONSULTANT documented in this encounter Medications at Time [...] the baby. Deann mentioned she has a clinical social worker Francisco who helps them with the children. JACKIE spoke with [facility] and they report that the family has been assigned to Francisco Silverman [phone] who is disease case manager rn with CPS ongoing. (Francisco is out of office until 01/27/17, this publications writer left ). Deann has history of substance use disorder and has been sober for 8 years. She is followed closely by Dr. Alfredo and is on Subutex. Deann also struggles with anxiety and depression, at this time she reports she is doing well. I)JACKIE confirmed with pt's [facility] [phone] that Deann is able to schedule one [...] to visit. JACKIE spoke with NICU manager underwriting and SW informed Deann that an exception would not be made. JACKIE left [facility] at bedside for Deann to sign so that this publications writer can coordinate care with [facility] clinical social worker Francisco. A)JACKIE spoke with MOB [...] from [facility] 12/24/16 chart on 01/23/17 NIZATIONAL DEVELOPMENT CONSULTANT Petrona Barone, - 12/27/2016 5:20 AM CST [facility] Post- Note Name: Deann King S: [...] Routine management: Pain: S/p TAP blocks and BEHAVIORAL HEALTH SPECIALIST. Scheduled ibuprofen and tylenol. PO oxycodone 20 [...] plan regarding pain management Marleny Kang MD Tunnel Mucker, PGY-3 Physician Attestation IPetrona DO, saw and [...] regarding post c/hyst, opioid dependence, discharge instructions. NIZATIONAL DEVELOPMENT CONSULTANT Petrona Barone DO - 12/26/2016 6:42 AM CST [facility] Note Name: Deann King S: Patient [...] Routine management: Pain: S/p TAP blocks and BEHAVIORAL HEALTH SPECIALIST. Scheduled toradol, tylenol. PRN IV dilaudid and [...] and meeting postoperative goals Marleny Kang MD Tunnel Mucker, PGY-3 Physician Attestation I, Petrona Barone, DO, [...] coordinating care regarding postop care from c/hyst. NIZATIONAL DEVELOPMENT CONSULTANT Marleny Kang MD - 12/25/2016 9:54 PM [...] oximetry, discussed with RN. Marleny Kang MD DIE ENGRAVER PGY-3 NIZATIONAL DEVELOPMENT CONSULTANT Marilu Lam MD - 12/25/2016 9:38 PM CST I have seen and examined this patient this AM (note delayed). She is HD stable and tolerating her recovery to date. WE have discussed the implication of her surgery and she is aware that she will not be able to have additional children, but is grateful to be feeling well. Marilu Lam NIZATIONAL DEVELOPMENT CONSULTANT Petrona Barone DO - 12/25/2016 5:44 AM CST [facility] Note Name: Deann King S: Patient [...] b/l I/O last 3 completed shifts: In: 14956 [I.V.:4800] Out: 5900 [Urine:900; Blood:5000] Hgb: Hemoglobin [...] 2. cares: Pain: S/p TAP blocks. Dilaudid BEHAVIORAL HEALTH SPECIALIST with scheduled tylenol. Holding NSAIDs until Hgb [...] Hypothyroidism: - Continue synthroid. Marleny Kang MD Tunnel Mucker, PGY-3 Physician Attestation I, Petrona Barone DO, [...] tolerance. Labs stable. Toradol given now. Increase BEHAVIORAL HEALTH SPECIALIST to 0.3mg continuous with 0.3-0.5mg bumps. Total [...] regarding post op pain, recovery plan, etc. NIZATIONAL DEVELOPMENT CONSULTANT Marleny Kang MD - 12/25/2016 2:56 AM CST [facility] Note Name: Deann King S: Patient [...] b/l I/O last 3 completed shifts: In: 68861 [I.V.:4800] Out: 5900 [Urine:900; Blood:5000] Hgb: Hemoglobin [...] 2. cares: Pain: S/p TAP blocks. Dilaudid BEHAVIORAL HEALTH SPECIALIST with scheduled tylenol, will increase demand dose. Holding NSAIDsuntil Hgb stabilizes. Continue home subutex for history of substance abuse. Supportive measures including warm packs, abdominal binder. GI: CLD, advance as tolerated. Scheduled bowel regimen ordered. : Duarte in place, strict Is/Os. Daily weights. Rh: Positive. Rubella: Non-immune, MMR ordered. Mood: Continue home effexor, wellbutrin. SW is following patient. Marleny Kang MD Tunnel Mucker, PGY-3 12/25/2016, 2:28 AM NIZATIONAL DEVELOPMENT CONSULTANT Yareli Greenwood RN - 12/24/2016 8:35 PM [...] Dr. Barone M staff and Dr. Nunez DIE ENGRAVER staff were notified. Delivery plan was confirmed [...] OR notified, proceed urgently. Marleny Kang MD DIE ENGRAVER PGY-3 MF staff note: Called regarding change in clinical status for patient. Delivery indicated in the setting of pretermcervical dilation, hemorrhage with known posterior placenta previa/possible accreta and prolonged ROM. S/p BMZ nearly 2 weeks ago. Magnesium sulfate for MIDDLE SCHOOL HISTORY TEACHER recommended. Type and cross with blood in OR. Petrona Barone DO FACOG Maternal Medicine Specialist Pager: [phone] NIZATIONAL DEVELOPMENT CONSULTANT Petrona Barone DO - 12/24/2016 10:18 AM CST [facility] Antepartum Progress Note Subjective: She is [...] 140s, moderate variability, present accels, absent decels Yah-Ta-Hey: no contractions or irritability noted Imaging: See [...] bleeding. Plan c-hyst unless previa resolves with [facility] double staff. - Care conference scheduled [...] million. Needs follow up with GI or Settlement Agent for treatment options . - Notify NICU [...] with Dr. Barone. Tatyana Walsh MD MPH DIE ENGRAVER, PGY3 Pager: [phone] 12/23/2016 10:04 AM Physician Attestation I, Petrona [...] team of new symptoms. Marleny Kang MD DIE ENGRAVER PGY-3 Petrona Tinoco DO - 12/23/2016 10:04 [...] 130s, moderate variability, present accels, absent decels Yah-Ta-Hey: quiet, no contractions Assessment/Plan: Deann King is [...] - Needs follow up with GI or Settlement Agent for treatment options . ? 5) History [...] with Dr. Barone. Tatyana Walsh MD MPH DIE ENGRAVER, PGY3 Pager: [phone] 12/23/2016 10:04 AM Physician Attestation I, Petrona [...] coordinating care regarding placenta previa/PPROM, possible accreta. NIZATIONAL DEVELOPMENT CONSULTANT Nora Mohamud MD - 12/22/2016 10:45 AM [...] 6. Hepatitis C - s/p GI at [facility] in 2013, genotype 1a - normal LFTs [...] patient): December 22, 2016 Nora Mohamud MD Button Maker And Installer, DIE ENGRAVER Maternal- Medicine [email or web address] [phone] (Academic office) [phone] (Pager) NIZATIONAL DEVELOPMENT CONSULTANT Nora Mohamud MD - 12/21/2016 11:52 AM [...] 6. Hepatitis C - s/p GI at [facility] in 2013, genotype 1a, inpatient GI consulted [...] patient): December 21, 2016 Nora Mohamud MD Button Maker And Installer, DIE ENGRAVER Maternal- Medicine [email or web address] [phone] (Academic office) [phone] (Pager) Apple Sen RD - 12/20/2016 11:41 [...] protocol. Apple Sen RD, LD Unit Pager: [phone] Lashawn Patel MD - 12/20/2016 8:59 AM [...] moderate variability, + accels, rare variable decels Yah-Ta-Hey: quiet, 0 ctx in 10 minutes Assessment/Plan: [...] bleeding. Plan c-hyst unless previa resolves with [facility] double staff. ? 3. FWB: - [...] - Needs follow up with GI or Settlement Agent for treatment options . ? 5. History [...] accels, absent decels - appropriate for GA. Yah-Ta-Hey: no contractions No intervention needed at this time. Tatyana Walsh MD MPH DIE ENGRAVER, PGY3 Pager: [phone] 12/19/2016 11:56 PM Lashawn Patel MD - [...] 130s, moderate variability, + accels, no decels Yah-Ta-Hey: quiet, 0 ctx in 10 minutes Assessment/Plan: [...] - Needs follow up with GI or Settlement Agent for treatment options . ? 5. History [...] accels, absent decels - appropriate for GA. Yah-Ta-Hey: no contractions No intervention needed at this time. Tatyana Walsh MD MPH DIE ENGRAVER, PGY3 Pager: [phone] 12/19/2016 3:13 AM Lashawn Patel MD - [...] 130s, moderate variability, + accels, no decels Yah-Ta-Hey: quiet, 0 ctx in 10 minutes Assessment/Plan: [...] - Needs follow up with GI or Settlement Agent for treatment options . ? 5. History [...] weeks from dose increase. Marleny Kang MD DIE ENGRAVER PGY-3 Physician Attestation I, Lashawn Patel, saw [...] from scratching area. Tatyana Walsh MD MPH DIE ENGRAVER, PGY3 Pager: [phone] 12/18/2016 12:08 AM Marleny Kang MD - 12/17/2016 12:35 PM CDT DIE ENGRAVER Progress Note Patient complaining of right ear pain. Notes some mild nasal stuffiness. Denies fever, postnasal drip, hearing changes, other signs of systemic illness including fevers. Denies history of ear infection. Gently cleans ears. Otoscopic exam without exudate or signs of infection, clear TM, no tenderness with motion. Will give debrox drops and monitor for symptoms. Marleny Kang MD DIE ENGRAVER PGY-3 Marleny Kang MD - 12/17/2016 11:29 AM CDT DIE ENGRAVER Progress Note Patient seen at bedside to [...] attempt at this time. Marleny Kang MD DIE ENGRAVER PGY-3 Lashawn Patel MD - 12/17/2016 6:56 [...] 150's, moderate variability, + accels, no decels Yah-Ta-Hey: Quiet Assessment/Plan: Deann King is a 36 [...] - Needs follow up with GI or Settlement Agent for treatment options . ? 5. History [...] accels, absent decels - appropriate for GA. Yah-Ta-Hey: no contractions No intervention needed at this time. Tatyana Walsh MD MPH DIE ENGRAVER, PGY3 Pager: [phone] 12/17/2016 Lashawn Patel MD - 12/16/2016 6:54 [...] 140s, moderate variability, + accels, no decels Yah-Ta-Hey: 0 ctx in 10 minutes, quiet Assessment/Plan: [...] - Needs follow up with GI or Settlement Agent for treatment options . ? 5. History [...] and acupuncture as needed. Marleny Kang MD DIE ENGRAVER PGY-3 Physician Attestation I, Lashawn Patel, saw [...] accels, absent decels - appropriate for GA. Yah-Ta-Hey: no contractions No intervention needed at this time. Tatyana Walsh MD MPH DIE ENGRAVER, PGY3 Pager: [phone] 12/16/2016 2:14 AM Petrona Barone DO - [...] moderate variability, present accelerations (10x10), absent decelerations Yah-Ta-Hey: No contractions noted 12/03 MR IMPRESSION: 1. [...] - Needs follow up with GI or Settlement Agent for treatment options . ? 5. History [...] 150, moderate variability, present accelerations, absent decelerations Yah-Ta-Hey: No contractions noted 12/03 MR IMPRESSION: 1. [...] - Needs follow up with GI or Settlement Agent for treatment options . ? 5. History [...] patient, she is agreeable. Elizabeth Manzanares MD DIE ENGRAVER Resident PGY4 Pager [phone] 12/13/[address] - 12/13/2016 12:12 [...] (nausea, vomiting) up until about a week AMMUNITION COMPONENTS INSPECTOR. Over the past 2 weeks she has [...] protocol. Echo Graham RD, LD Unit Pager: [phone] Nora Mohamud MD - 12/13/2016 8:50 AM [...] variable decels. Overall appropriate for gestational age. Yah-Ta-Hey: no contractions, quiet ? US (12/08): posterior/left [...] - Needs follow up with GI or Settlement Agent for treatment options . ? 5. History [...] the treatment of hepatitis C with a watch assembly instructor. A consultation was placed to discuss management [...] 6. Hepatitis C - s/p GI at [facility] in 2013, genotype 1a, inpatient GI consulted [...] patient): December 13, 2016 Nora Mohamud MD Button Maker And Installer, DIE ENGRAVER Maternal- Medicine [email or web address] [phone] (Academic office) [phone] (Pager) Tatyana Walsh MD - 12/13/2016 3:23 AM CDT Strip Review (Not delayed due to patient care) FHT: Baseline 150s bpm, moderate variability, prolonged accels, absent decels - appropriate for GA. Yah-Ta-Hey: no contractions No intervention required at this time. Tatyana Walsh MD MPH DIE ENGRAVER, PGY3 Pager: [phone] 12/13/2016 3:23 AM Jess Bernstein LICSW - 12/12/2016 11:11 AM CDT Met with patient today and completed [employer] application. Application faxed today. SW will continue [...] small decels. Overall appropriate for gestational age. Yah-Ta-Hey: no contractions, quiet ? US (12/08): posterior/left [...] - Needs follow up with GI or Settlement Agent for treatment options . ? 5. History [...] 6. Hepatitis C - s/p GI at [facility] in 2013, genotype 1a - normal LFTs [...] patient): December 12, 2016 Nora Mohamud MD Button Maker And Installer, DIE ENGRAVER Maternal- Medicine [email or web address] [phone] (Academic office) [phone] (Pager) Tatyana Walsh MD - 12/12/2016 12:53 AM CDT Strip Review (Not delayed due to patient care, services at 2200 on 12/11/2016) FHT: Baseline 140-150s bpm, moderate variability, prolonged accels, absent decels - appropriate for GA. Yah-Ta-Hey: no contractions No intervention required at this time. Tatyana Walsh MD MPH DIE ENGRAVER, PGY3 Pager: [phone] 12/12/2016 12:53 AM Nora Kovacs, PT - [...] in agreement with plan of care Yes [facility] AM-PAC TM 6 Clicks ?? 2016, Trustees of [facility], under license to [employer]. All rights reserved. 6 Clicks Short Forms Basic Mobility Inpatient Short Form [facility] AM-PAC??? 6 Clicks V.2 Basic Mobility Inpatient [...] small decels. Overall appropriate for gestational age. Yah-Ta-Hey: no contractions, quiet ? US (12/08): posterior/left [...] - Needs follow up with GI or Settlement Agent for treatment options . ? 5. History [...] 6. Hepatitis C - s/p GI at [facility] in 2013, genotype 1a - normal LFTs [...] patient): December 11, 2016 Nora Mohamud MD Button Maker And Installer, DIE ENGRAVER Maternal- Medicine [email or web address] [phone] (Academic office) [phone] (Pager) Tatyana Walsh MD - 12/10/2016 11:23 PM CDT Strip Review FHT: Baseline 150s bpm, moderate variability, present accels, absent decels - appropriate for GA. Yah-Ta-Hey: no contractions No intervention needed at this time. Tatyana Walsh MD MPH DIE ENGRAVER, PGY3 Pager: [phone] 12/10/2016 11:24 PM Jess Bernstein, SUPERVISOR CONTACT AND SERVICE CLERKS - 12/10/2016 11:49 AM CDT [facility] MATERNAL CHILD HEALTH SOCIAL WORK PROGRESS NOTE DATA: Met with Deann to assess needs and to offer support. Patient is 36 year-old, Deann King. She and her , Rafal have been for two years. They live in subsidized housing in [place], [place]. Deann and Rafal know they are [...] defect and was in the NICU at [facility]. in November 2014 at 5 1/2 [...] work. Rafal works at a factory in [place].Rafal does not have his courtesy van driver's license. Deann did not offer details [...] Assistance, talamantes and food assistance benefits through [facility]. Baby Lopez will be added to these programs upon . Deann would like to switch her MA to [employer] and is asking for SW assistance with this. Encouraged Deann to contact [facility] Economic Assistance and ask to speak to a financial worker to see what is needed to make this change. Deann is not currently enrolled in [facility] but is interested in application for these benefits. JACKIE contacted [facility] today and message left for the Manager Green to see if it is possible to enroll Deann and her 4 year-old son in [facility] while Deann is hospitalized. Deann has only limited baby supplies-- some clothing and a swing. can provide assistance with a Pack N Play and diapers from [facility]. Deann has history of chemical abuse. [...] from this experience that having an ongoing clinical social worker can be helpful to her and to her children. She has been working with a SW at [facility] (Francisco [phone]) . Deann identifiesthis SW at very supportive. [...] results from her echo today from the merchandise execution leader. She informed us everything looked normal. She [...] small decels. Overall appropriate for gestational age. Yah-Ta-Hey: 1 contraction in 1 hour, not felt [...] - Needs follow up with GI or Settlement Agent for treatment options . ? 5. History [...] 6. Hepatitis C - s/p GI at [facility] in 2013, genotype 1a - normal LFTs [...] patient): December 10, 2016 Nora Mohamud MD Button Maker And Installer, DIE ENGRAVER Maternal- Medicine [email or web address] [phone] (Academic office) [phone] (Pager) ?? Tatyana Walsh MD - 12/09/2016 10:46 PM CDT Strip Review FHT: Baseline 150s bpm, moderate variability, present accels, absent decels - appropriate for GA. Yah-Ta-Hey: 1 contractions/30 mins No intervention needed at this time. Hypothyroidism - TSH returned at normal range - no change to current synthroid needed. Depression - pending psych consult at this time. Continue home effexor. Tatyana Walsh MD MPH DIE ENGRAVER, PGY3 Pager: [phone] 12/09/2016 10:46 PM Nora Mohamud MD - [...] 130s, moderate variability, + accels, no decels Yah-Ta-Hey: quiet, 0 ctx in 10 minutes US [...] will follow-up on administration. Marleny Kang MD DIE ENGRAVER PGY-3 Maternal- Medicine Attending Addendum Late entry, [...] 6. Hepatitis C - s/p GI at [facility] in 2013, genotype 1a - normal LFTs [...] patient): December 09, 2016 Nora Mohamud MD Button Maker And Installer, DIE ENGRAVER Maternal- Medicine [email or web address] [phone] (Academic office) [phone] (Pager) Tatyana Walsh MD - 12/08/2016 7:58 PM CDT Strip Review FHT: Baseline 150s bpm, moderate variability, present accels, absent decels - appropriate for GA. Yah-Ta-Hey: no contractions, uterine irritability Tatyana Walsh MD MPH DIE ENGRAVER, PGY3 Pager: [phone] 12/08/2016 8:00 PM Italia Galarza DO - [...] 140s, moderate variability, + accels, no decels Yah-Ta-Hey: 0 ctx in 10 minutes US (12/08): [...] and Tdap ordered today. Marleny Kang MD DIE ENGRAVER PGY-3 Attending Attestation: I agree with the residents note above. I spent 15 minutes total [id number] with this inpatient, and >50% of the [...] toxicity at this time. Rossana Barker MD Tunnel Mucker, PGY-3 12/08/2016, 2:23 AM documented in this encounter H&P Notes Nora Leyva MD - 12/07/2016 3:06 PM CDT [facility] OB History and Physical Deann King [...] Negative Negative for C. trachomatis rRNA by operator supply mediated amplification. A negative result by operator supply mediated amplification does not preclude the presence of C. trachomatis infection because results are dependent on proper and adequate collection, absence of inhibitors, and sufficient rRNA to be detected. [facility] 08/29/2016 Negative Negative for N. gonorrhoeae rRNA by operator supply mediated amplification. A negative result by operator supply mediated amplification does not preclude the presence [...] BREAST SURGERY ABcess drained ??? SECTION ??? GROUP INSURANCE SPECIAL AGENT SURGERY ??? ORTHOPEDIC SURGERY ??? THORACIC SURGERY [...] 150, moderate variability, no accelerations, no decelerations Yah-Ta-Hey: 0 contractions in 10 minutes Assessment Ms. [...] Sofía Cao APRN, CNP, 12/20/2016 4:09 PM [facility] Intensive Care Unit [place], [place] - [...] a consultation by Nora Mohamud MD at [facility] Antepartum. Patient is currentlyunemployed. She had been working for her mother's [employer] service, but had to stop due to [...] through lifestyle changes. She and her attend islam-based meetings twice a week and no longer [...] provider, she may schedule outpatient follow-up with [facility] (call [phone] and inform guyline operator that you are or have recently had a baby) or contact insurance company for additional referrals.? Please contact [facility] if patient is in need of supports [...] time to herself. She asked if this publications writer could return tomorrow or later this afternoon, but this publications writer told her that she is booked and won't be able to accommodate except for this morning. Animal Attendants And Trainers mentioned at the end that if she [...] time to herself. She asked if this publications writer could return tomorrow or later this afternoon, but this publications writer told her that she is booked and won't be able to accommodate except for this morning. Animal Attendants And Trainers mentioned at the end that if she [...] this service's next availability). Madonna Carrasquillo APRN CERTIFIED REAL ESTATE APPRAISER - 12/07/2016 5:00 PM CDTAssociated Order(s): NURSE [...] intraventricular hemorrhage, nutrition, growth and development, and intermodal truck driver outcomes. Please feel free to call with any additional questions or concerns. Madonna Carrasquillo APRN, [facility] 12/07/2016 6:51 PM Nurse Practitioner Service Intensive Care Unit [facility] Floor Time (min): 5 Face to [...] leveled and Zeroed, after labs were drawn, Garland was removed with approval of Dr Torres. Site held for 5 minutes and dressing placed to Left wrist, no bleeding or oozing noted at that time. Pt VSS, capnography started, pt's family updated via phone, will report to floor RN. NIZATIONAL DEVELOPMENT CONSULTANT Lisa Rubio RN - 12/25/2016 1:42 AM CST PACU to Inpatient Nursing Handoff Patient Deann King is a 36 year old female who speaks Mozambican. Procedure Procedure(s): Section Immediate Hysterectomy, Bilateral Salpingectomy [...] mg (total dose) last given at 0131 BEHAVIORAL HEALTH SPECIALIST / epidural Yes. BEHAVIORAL HEALTH SPECIALIST - hydromorphone (Dilaudid) Capnography Telemetry ECG Rhythm: [...] numbness;no tingling (12/24/16 09) Equipment capnography and BEHAVIORAL HEALTH SPECIALIST Other LDA IV Access Peripheral IV 12/22/16 Left Upper forearm (Active) Site Assessment [facility] except;Leaking 12/25/2016 12:38 AM Line Status Saline locked 12/25/2016 12:38 AM Phlebitis Scale 0-->no symptoms 12/23/2016 8:45 AM Infiltration Scale 0 12/23/2016 8:45 AM Dressing Intervention Other (Comment) 12/23/2016 8:45 AM Number of days:3 Peripheral IV 12/24/16 Right Upper forearm (Active) Site Assessment [facility] 12/25/2016 12:38 AM Line Status Saline locked 12/25/2016 12:38 AM Number of days:1 Peripheral IV 12/24/16 Left Lower forearm (Active) Site Assessment [facility] 12/25/2016 12:38 AM Line Status Infusing 12/25/2016 [...] 12/25/2016 12:05 AM Rationale for Continued Use Anesthesia;/GI/GROUP INSURANCE SPECIAL AGENT Pelvic Procedure 12/25/2016 12:05 AM Urine Output [...] the antepartum RN. Lisa Rubio RN ASCOM [id number] NIZATIONAL DEVELOPMENT CONSULTANT documented in this encounter Miscellaneous Notes Plan of Care - Nakia Figueroa AMMUNITION COMPONENTS INSPECTOR - 12/27/2016 3:26 PM CST Problem: PT [...] questions and will d/c from inpatient PT. NIZATIONAL DEVELOPMENT CONSULTANT Associated attestation - Roxy Sr, PT - 12/27/2016 6:21 PM ORGANIZATIONAL DEVELOPMENT CONSULTANT Physical Therapy Discharge Summary Reason for therapy discharge: Discharged to home with outpatient therapy. Progress towards therapy goal(s). See goals on Care Plan in [facility] electronic health record for goal [...] leaving. F/U in clinic understood by patient. NIZATIONAL DEVELOPMENT CONSULTANT Plan of Care - Erika Villalpando RN - 12/27/2016 7:50 AM CST Referral made to [facility] for early dc. NIZATIONAL DEVELOPMENT CONSULTANT Plan of Care - Lucia Cotton RN [...] out which was taken to the nicu. NIZATIONAL DEVELOPMENT CONSULTANT Plan of Care - Hyacinth Wolf RN [...] more. Will continue with plan of Care. NIZATIONAL DEVELOPMENT CONSULTANT Note - Nikky Smith RNC - 12/26/2016 [...] to provide support. Nikky Smith RNC, IBCLC NIZATIONAL DEVELOPMENT CONSULTANT Plan of Care - Lucia Cotton, RN [...] of without calling us to stand by. NIZATIONAL DEVELOPMENT CONSULTANT Plan of Care - Yessenia Julian RN [...] at bedside. Continue with plan of care. NIZATIONAL DEVELOPMENT CONSULTANT Provider Notification - Kristie Merida RN - 12/25/2016 9:01 PM CST Sepsis alert came up for pt. BP 91/63. HR of 115. SpO2 of 98. NIZATIONAL DEVELOPMENT CONSULTANT Plan of Care - Maria Antonia Hidalgo [...] and oral oxycodone given with initial relief. NIZATIONAL DEVELOPMENT CONSULTANT Provider Notification - Kristie Merida RN - 12/25/2016 7:48 PM CST Do you want pt to continue with IV Toradol and Dilaudid? FYI-pt is going outside to smoke. NIZATIONAL DEVELOPMENT CONSULTANT Plan of Care - Maria Antonia Hidalgo [...] Patient medicated during the shift with dilaudid BEHAVIORAL HEALTH SPECIALIST for pain, which was discontinued at 13:50. [...] any other needs. Anticipate discharge on Friday. NIZATIONAL DEVELOPMENT CONSULTANT Plan of Care - Maria Antonia Hidalgo [...] one hour. Fixed and working well now NIZATIONAL DEVELOPMENT CONSULTANT Plan of Care - Khloe Elmore RN - 12/25/2016 5:50 AM CST Problem: ( Delivery) (Adult,Obstetrics,Pediatric) Goal: Signs and Symptoms of Listed Potential Problems Will be Absent, Minimized or Managed () Signs and symptoms of listed potential problems will be absent, minimized or managed by discharge/transition of care (reference ( Delivery) (Adult,Obstetrics,Pediatric) CPG). Outcome: No Change Pt's pain intolerable with BEHAVIORAL HEALTH SPECIALIST @ 0.2mg dilaudid every 10 minutes, dose increased to 0.3mg every 10 minutes with max dose delivery 1.2mg/hr. Pt's pain remains intolerable, but getting better, she falls asleep between BEHAVIORAL HEALTH SPECIALIST doses. NIZATIONAL DEVELOPMENT CONSULTANT Op Note - So Nunez MD - 12/24/2016 11:53 PM CST [facility] Full Operative Progress Note Surgery Date: 12/24/2016 Surgeon: So Nunez MD Assistants: Marilu Lam MD Supervisor Respiratory/Onc staff Petrona Barone MD MFM staff Donita Barrow MD MFM fellow Margarita Talbert MD Supervisor Respiratory/Onc fellow Marleny Kang MD PGY-3 Tatyana Govea MD PGY-3 Kayla Davidson MD PGY-2 Exceptional Circumstances Require an In Home Nanny Surgeon -Exceptional medical circumstances in this case required the participation of supply assistant surgeons Drs. Barone and Idania in [...] entirety of the procedure. Marleny Kang MD Tunnel Mucker, PGY-3 12/24/2016, 11:54 PM I was present and scrubbed throughout the procedure, I agree with the note above So Nunez MD NIZATIONAL DEVELOPMENT CONSULTANT Brief Op Note - Marleny Kang MD - 12/24/2016 11:23 PM CST [facility] Hysterectomy Brief Operative Note Surgery Date: 12/24/2016 Surgeon: So Nunez MD; Marilu Lam MD (intraoperative consult) Assistants: Petrona Barone MD MFM staff Donita Barrow MD MFM fellow Margarita Talbert MD Supervisor Respiratory/Onc fellow Marleny Kang MD PGY-3 Tatyana Govea [...] Disposition: Stable to PACU Marleny Kang MD DIE ENGRAVER PGY-3 NIZATIONAL DEVELOPMENT CONSULTANT Op Note - Marilu Lam MD - 12/24/2016 10:18 PM CST DATE OF SERVICE: 12/07/2016 Remainder of this note will be dictated by Dr. Nunez's service and for my portion is as follows: ATTENDING: Marilu Lam MD ASSISTANT PROFESSOR: Dr. Talbert, PGY 7 ANESTHESIA: GET COMPLICATIONS: [...] MD MT: LENARD Name: DEANN KING Account: [id number] : 1980 Procedure Date: 12/07/2016 Document: [id number] NIZATIONAL DEVELOPMENT CONSULTANT Plan of Care - Juanis Henson, RN [...] Kang and questions answered. SCD's were placed. [facility] saw patient prior to transfer to the OR. There was no new bleeding after the spec exam and prior to transfer to cart. While transferto OR patient felt blood coming out and only a small amount was seen on perineum. Dr. Barone was updated on patient status while transfer to OR. NIZATIONAL DEVELOPMENT CONSULTANT Plan of Care - Juanis Henson RN - 12/24/2016 6:04 PM CST Problem: Patient Care Overview Goal: Plan of Care/Patient Progress Review Outcome: No Change Continues to have cramping. Intensity remains the same. Continue to monitor. NIZATIONAL DEVELOPMENT CONSULTANT Plan of Care - Nakia Figueroa PTA - 12/24/2016 4:18 PM CST Problem: PT General Care Plan Goal: PT target date for goal attainment PT: patient displayed improvement with pain and prior to treatment rated neck pain 4/10 and after manual therapy decreased to 0/10. Wet Plant Operator PT Patient plan for discharge: home Current status: patient independent with all mobilities and HEP Barriers to return to prior living situation: none Recommendations for discharge: home would benefit from OP PT for management of neck and back Rationale for recommendations: decrease back and neck pain and improve posture. Entered by: Nakia Figueroa 12/24/2016 4:17 PM NIZATIONAL DEVELOPMENT CONSULTANT Plan of Care - Petrona Sharif RN [...] 140s, with moderate variability and without decelerations. NIZATIONAL DEVELOPMENT CONSULTANT Plan of Care - Annie Allen RN [...] labor, signs/symptoms of infection, or /maternal compromise. NIZATIONAL DEVELOPMENT CONSULTANT Plan of Care - Annie Allen RN [...] reassured after exam. Continue plan of care. NIZATIONAL DEVELOPMENT CONSULTANT Provider Notification - Annie Allen RN - 12/24/2016 12:02 AM CST 12/24/16 0002 Provider Notification Provider Name/Title Dr. Kang Method of Notification Electronic Page Request Evaluate - Remote Notification Reason Other (Comment) Pt requesting UA/UC for increased urine frequency. Thanks NIZATIONAL DEVELOPMENT CONSULTANT Provider Notification - Juanis Henson RN - [...] see patient when she returns to floor. NIZATIONAL DEVELOPMENT CONSULTANT Plan of Care - Juanis Henson RN [...] symptoms. RN will talk with Dr. Kang. NIZATIONAL DEVELOPMENT CONSULTANT Plan of Care - Juanis Henson RN [...] ate, in case she progresses into labor. NIZATIONAL DEVELOPMENT CONSULTANT Provider Notification - Leslie Mendoza RN - 12/23/2016 3:35 PM CST 12/23/16 0755 Provider Notification Provider Name/Title Dr. Walsh, Dr. Barone, Med student Method of Notification At Bedside Request Evaluate in Person Notification Reason Status Update NIZATIONAL DEVELOPMENT CONSULTANT Plan of Care - Leslie Mendoza RN [...] labor, signs/symptoms of infection, or /maternal compromise. NIZATIONAL DEVELOPMENT CONSULTANT Provider Notification - Leslie Mendoza RN - 12/23/2016 12:31 PM CST 12/23/16 0945 OB Patient Position Activity/Level of Assist Ambulating Patient went outside NIZATIONAL DEVELOPMENT CONSULTANT Provider Notification - Leslie Mendoza RN - 12/23/2016 12:31 PM CST 12/23/16 0720 OB Patient Position Maternal Position Standing Activity/Level of Assist Ambulating Patient went outside (to smoke) NIZATIONAL DEVELOPMENT CONSULTANT Provider Notification - Leslie Mendoza RN - 12/23/2016 7:58 AM CST Providers here for morning rounds and EFM strip review. Patient concerned about her oral pain on hertongue. There is a sore/ulceration there. Providers reminding patient to NOT self examine digitally her cervix. NIZATIONAL DEVELOPMENT CONSULTANT Plan of Care - Bonita Love RN [...] Will continue with current plan of care. NIZATIONAL DEVELOPMENT CONSULTANT Provider Notification - Bonita Love RN - 12/22/2016 8:02 PM ORGANIZATIONAL DEVELOPMENT CONSULTANT 12/22/162000 Provider Notification Provider Name/Title Dr. Kang Method of Notification In Department Notification Reason Other (Comment) Patient reporting increased leaking of fluid today. Yellow colored on pads, no odor. Patient is not having any abdominal tenderness. Afebrile. Pt declines monitoring at this time. Dr. Kang updated. NIZATIONAL DEVELOPMENT CONSULTANT Plan of Care - Yareli Marsh RN [...] today. Will continue with plan of care. NIZATIONAL DEVELOPMENT CONSULTANT Plan of Care - Wendy Richter RN [...] VSS; EFM as charted. Continue expectant management. NIZATIONAL DEVELOPMENT CONSULTANT Plan of Care - Wendy Richter RN - 12/22/2016 3:13 AM CST Due to daylight savings time, labor calculations, ruptured membrane calculations and/or cervical exams times may be off by up to one hour from the actual time. A summary of the times/calcuations follows: None for this patient. NIZATIONAL DEVELOPMENT CONSULTANT Plan of Care - So Cheng RN [...] son. They have been working on some [employer] blanketsand watching movies. Pt continues to go [...] the bathroom for longer period of time. Wet Plant Operator PT Patient plan for discharge: home [...] monitor and assist. Plan of Care - Vivain Bradford RN - 12/20/2016 6:48 AM CDT [...] to monitor and update providerwith any changes. [place]ah[place]-Hey quiet and EFM mod variability, occasional accels, [...] No visitors last diana but worked on [employer] and did other crafts/games. No complaints today. [...] axillary as well as left upper abd. [place], raised areas, itches but also [place] per [...] postural exercises and relief with suboccipital release. Wet Plant Operator PT Patient plan for discharge: home [...] functional goals as expected D: Patient called publications writer into room at 1230 stating pain in her side after laughing at the [employer] tv. Placed on EFM, no contractions noted accelerations and baby appropriate for gestational age.Patient called publications writer back into room at 1305 stating [...] of Care/Patient Progress Review Outcome: No Change Animal Attendants And Trainers went to assess vital signs. Pt. Stated that she had some reddish pink mucus in the toilet andsome pink fluid on the toilet tissue. Small quarter sized reddish pink mucus noted in the bottom of the toilet. Urine was yellow colored, no blood noted. Animal Attendants And Trainers placed and uterine monitors on thepatient. Patient [...] scant bloody mucus in toilet when voided. [place] on toilet tissue. Dr. Cyr notified of [...] gum. Pt declines at this time. With clinical social worker at this time. Pt declines [...] within reach. Pt states understanding to put magnetic resonance imaging coordinator light if any change in condition. Plan [...] Overview Goal: Plan of Care/Patient Progress Review Wet Plant Operator PT Patient plan for discharge: Home [...] s/o. [facility]. Pt is comfortable. [...] within reach. Pt states understanding to put magnetic resonance imaging coordinator light if any changes in condition. Plan [...] orintensity. Abdomen palpates soft, and toco didn't brass pickler any contractions. FHT: mod variability with [...] Visit Wound Care Luis Camara DPM [address] [place], [place] [id number] (Wo rk) 01/21/2022 PRE VISIT Gastroenterology Landon Warren, *-*WANDAIN G RECORDS*-* MD Luis Fernando [address] [place] [id number] (Wo rk) 01/21/2022 Office Visit Gastroenterology Juanis Levi [address] [place] [phone] Luis Fernando Miles MD [address] [place] [address] [phone] Pending Results Name Type Priority Associated Date/Time Diagnoses Transfuse red blood Nursing Transfusion STAT 1 02/24/2016 8:10 cell unit PM ORGANIZATIONAL DEVELOPMENT CONSULTANT Transfuse red blood Nursing Transfusion STAT 1 02/24/2016 8:15 cell unit PM ORGANIZATIONAL DEVELOPMENT CONSULTANT Transfuse plasma unit Nursing Transfusion Routine 12/24/2016 8:48 PM ORGANIZATIONAL DEVELOPMENT CONSULTANT Transfuse red blood Nursing Transfusion STAT 1 02/24/2016 8:42 cell unit PM ORGANIZATIONAL DEVELOPMENT CONSULTANT Transfuse red blood Nursing Transfusion STAT 1 02/24/2016 9:30 cell unit PM ORGANIZATIONAL DEVELOPMENT CONSULTANT Transfuse red blood Nursing Transfusion STAT 1 02/24/2016 8:59 cell unit PM ORGANIZATIONAL DEVELOPMENT CONSULTANT Transfuse red blood Nursing Transfusion STAT 1 02/24/2016 8:58 cell unit PM ORGANIZATIONAL DEVELOPMENT CONSULTANT Transfuse red blood Nursing Transfusion STAT 1 02/24/2016 8:47 cell unit PM ORGANIZATIONAL DEVELOPMENT CONSULTANT Placenta path order and Lab Routine 08/2016 8:05 indications PM ORGANIZATIONAL DEVELOPMENT CONSULTANT Transfuse platelets Nursing Transfusion Routine 1 02/24/2016 9:19 unit PM ORGANIZATIONAL DEVELOPMENT CONSULTANT Transfuse red blood Nursing Transfusion STAT 1 02/24/2016 10:15 cell unit PM ORGANIZATIONAL DEVELOPMENT CONSULTANT Transfuse red blood Nursing Transfusion STAT 1 02/24/2016 10:50 cell unit PM ORGANIZATIONAL DEVELOPMENT CONSULTANT Transfuse red blood Nursing Transfusion STAT 1 02/24/2016 9:56 cell unit PM ORGANIZATIONAL DEVELOPMENT CONSULTANT Cryoprecipitate prepare Blood Bank Routine Chronic hepatitis 12/24/2016 10:59 order unit C without hepatic PM ORGANIZATIONAL DEVELOPMENT CONSULTANT coma (H) Transfuse Nursing Transfusion Routine 12/25/19 17 11:10 cryoprecipitate unit PM ORGANIZATIONAL DEVELOPMENT CONSULTANT Scheduled Referrals Name Type Priority Associated Diagnoses Order S chedule GASTROENTEROLOGY ADULT REF Referral Routine Chronic hepati tis C Ordered: 12/26/2016 CONSULT ONLY without hepatic coma (H) DENTAL REFERRAL Referral Routine Dental caries Ordered: documented as of this encounter Procedures Procedure Name Priority Date/Time Associated Comments Diagnosis CBC WITH PLATELETS Routine 12/26/2016 8:10 Chronic hepatitis R esults for this AM ORGANIZATIONAL DEVELOPMENT CONSULTANT C without hepatic procedure are in coma (H) the results section. CBC WITH PLATELETS Timed 12/25/2016 2:04 Chronic hepatitis R esults for this PM ORGANIZATIONAL DEVELOPMENT CONSULTANT C without hepatic procedure are in coma (H) the results section. INR Timed 12/25/2016 7:00 Chronic hepatitis Results for this AM ORGANIZATIONAL DEVELOPMENT CONSULTANT C without hepatic procedure are in coma (H) the results section. PARTIAL THROMBOPLASTIN Timed 12/25/2016 7:00 Chronic hepatit is Results for this TIME AM ORGANIZATIONAL DEVELOPMENT CONSULTANT C without hepatic procedure are in coma (H) the results section. MAGNESIUM Timed 12/25/2016 7:00 Chronic hepatitis Results for this AM ORGANIZATIONAL DEVELOPMENT CONSULTANT C without hepatic procedure are in coma (H) the results section. FIBRINOGEN ACTIVITY Timed 12/25/2016 7:00 Chronic hepatitis Results for this AM ORGANIZATIONAL DEVELOPMENT CONSULTANT C without hepatic procedure are in coma (H) the results section. BASIC METABOLIC PANEL Timed 12/25/2016 7:00 Chronic hepatiti s Results for this AM ORGANIZATIONAL DEVELOPMENT CONSULTANT C without hepatic procedure are in coma (H) the results section. CBC WITH PLATELETS Timed 12/25/2016 7:00 Chronic hepatitis R esults for this AM ORGANIZATIONAL DEVELOPMENT CONSULTANT C without hepatic procedure are in coma (H) the results section. INR Routine 12/25/2016 12:54 Chronic hepatitis Result s for this AM ORGANIZATIONAL DEVELOPMENT CONSULTANT C without hepatic procedure are in coma (H) the results section. PARTIAL THROMBOPLASTIN Routine 12/25/2016 12:54 Chronic hepati tis Results for this TIME AM ORGANIZATIONAL DEVELOPMENT CONSULTANT C without hepatic procedure are in coma (H) the results section. FIBRINOGEN ACTIVITY Routine 12/25/2016 12:54 Chronic hepatitis Results for this AM ORGANIZATIONAL DEVELOPMENT CONSULTANT C without hepatic procedure are in coma (H) the results section. BASIC METABOLIC PANEL Routine 12/25/2016 12:54 Chronic hepatit is Results for this AM ORGANIZATIONAL DEVELOPMENT CONSULTANT C without hepatic procedure are in coma (H) the results section. CBC WITH PLATELETS Routine 12/25/2016 12:54 Chronic hepatitis Results for this AM ORGANIZATIONAL DEVELOPMENT CONSULTANT C without hepatic procedure are in coma (H) the results section. XR ABDOMEN PORT 1 VIEW STAT 12/24/2016 11:10 R esults for this PM ORGANIZATIONAL DEVELOPMENT CONSULTANT procedure are i n the results section. TRANSFUSE Routine 12/24/2016 11:10 CRYOPRECIPITATE UNIT PM ORGANIZATIONAL DEVELOPMENT CONSULTANT BLOOD COMPONENT Routine 12/24/2016 10:59 Chronic hepatitis Res ults for this PM ORGANIZATIONAL DEVELOPMENT CONSULTANT C without hepatic procedure are in coma (H) the results section. PREPARE CRYOPRECIPITATE Routine 12/24/2016 10:59 Chronic hepat itis (SINGLE UNIT) PM ORGANIZATIONAL DEVELOPMENT CONSULTANT C without hepatic coma (H) TRANSFUSE RED BLOOD CELL STAT 12/24/2016 10:50 UNIT PM ORGANIZATIONAL DEVELOPMENT CONSULTANT ARTERIAL PANEL Routine 12/24/2016 10:45 Chronic hepatitis Resu lts for this PM ORGANIZATIONAL DEVELOPMENT CONSULTANT C without hepatic procedure are in coma (H) the results section. TRANSFUSE RED BLOOD CELL STAT 12/24/2016 10:15 UNIT PM ORGANIZATIONAL DEVELOPMENT CONSULTANT SURGICAL PATHOLOGY EXAM Routine 12/24/2016 10:13 Results for this PM ORGANIZATIONAL DEVELOPMENT CONSULTANT procedure are i n the results section. TRANSFUSE RED BLOOD CELL STAT 12/24/2016 9:56 UNIT PM ORGANIZATIONAL DEVELOPMENT CONSULTANT ARTERIAL PANEL Routine 12/24/2016 9:50 Chronic hepatitis Resul ts for this PM ORGANIZATIONAL DEVELOPMENT CONSULTANT C without hepatic procedure are in coma (H) the results section. INR Routine 12/24/2016 9:50 Chronic hepatitis Results for this PM ORGANIZATIONAL DEVELOPMENT CONSULTANT C without hepatic procedure are in coma (H) the results section. PARTIAL THROMBOPLASTIN Routine 12/24/2016 9:50 Chronic hepatit is Results for this TIME PM ORGANIZATIONAL DEVELOPMENT CONSULTANT C without hepatic procedure are in coma (H) the results section. FIBRINOGEN ACTIVITY Routine 12/24/2016 9:50 Chronic hepatitis Results for this PM ORGANIZATIONAL DEVELOPMENT CONSULTANT C without hepatic procedure are in coma (H) the results section. CBC WITH PLATELETS Routine 12/24/2016 9:50 Chronic hepatitis R esults for this PM ORGANIZATIONAL DEVELOPMENT CONSULTANT C without hepatic procedure are in coma (H) the results section. TRANSFUSE RED BLOOD CELL STAT 12/24/2016 9:30 UNIT PM ORGANIZATIONAL DEVELOPMENT CONSULTANT ARTERIAL PANEL Routine 12/24/2016 9:20 Chronic hepatitis Resul ts for this PM ORGANIZATIONAL DEVELOPMENT CONSULTANT C without hepatic procedure are in coma (H) the results section. TRANSFUSE PLATELETS UNIT Routine 12/24/2016 9:19 PM ORGANIZATIONAL DEVELOPMENT CONSULTANT TRANSFUSE RED BLOOD CELL STAT 12/24/2016 8:59 UNIT PM ORGANIZATIONAL DEVELOPMENT CONSULTANT TRANSFUSE RED BLOOD CELL STAT 12/24/2016 8:58 UNIT PM ORGANIZATIONAL DEVELOPMENT CONSULTANT TRANSFUSE PLASMA UNIT Routine 12/24/2016 8:48 PM ORGANIZATIONAL DEVELOPMENT CONSULTANT TRANSFUSE RED BLOOD CELL STAT 12/24/2016 8:47 UNIT PM ORGANIZATIONAL DEVELOPMENT CONSULTANT BLOOD COMPONENT Routine 12/24/2016 8:45 Chronic hepatitis Resu lts for this PM ORGANIZATIONAL DEVELOPMENT CONSULTANT C without hepatic procedure are in coma (H) the results section. BLOOD COMPONENT Routine 12/24/2016 8:45 Chronic hepatitis Resu lts for this PM ORGANIZATIONAL DEVELOPMENT CONSULTANT C without hepatic procedure are in coma (H) the results section. PREPARE PLATELETS ORDER Routine 12/24/2016 8:45 Chronic hepati tis Results for this UNIT PM ORGANIZATIONAL DEVELOPMENT CONSULTANT C without hepatic procedure are in coma (H) the results section. ARTERIAL PANEL Routine 12/24/2016 8:44 Chronic hepatitis Resul ts for this PM ORGANIZATIONAL DEVELOPMENT CONSULTANT C without hepatic procedure are in coma (H) the results section. INR Routine 12/24/2016 8:44 Chronic hepatitis Results for this PM ORGANIZATIONAL DEVELOPMENT CONSULTANT C without hepatic procedure are in coma (H) the results section. PARTIAL THROMBOPLASTIN Routine 12/24/2016 8:44 Chronic hepatit is Results for this TIME PM ORGANIZATIONAL DEVELOPMENT CONSULTANT C without hepatic procedure are in coma (H) the results section. FIBRINOGEN ACTIVITY Routine 12/24/2016 8:44 Chronic hepatitis Results for this PM ORGANIZATIONAL DEVELOPMENT CONSULTANT C without hepatic procedure are in coma (H) the results section. CBC WITH PLATELETS Routine 12/24/2016 8:44 Chronic hepatitis R esults for this PM ORGANIZATIONAL DEVELOPMENT CONSULTANT C without hepatic procedure are in coma (H) the results section. TRANSFUSE RED BLOOD CELL STAT 12/24/2016 8:42 UNIT PM ORGANIZATIONAL DEVELOPMENT CONSULTANT ARTERIAL PANEL Routine 12/24/2016 8:25 Chronic hepatitis Resul ts for this PM ORGANIZATIONAL DEVELOPMENT CONSULTANT C without hepatic procedure are in coma (H) the results section. PLACENTA PATH ORDER AND Routine 12/24/2016 8:05 INDICATIONS PM ORGANIZATIONAL DEVELOPMENT CONSULTANT BLOOD COMPONENT Routine 12/24/2016 7:25 Chronic hepatitis Resu lts for this PM ORGANIZATIONAL DEVELOPMENT CONSULTANT C without hepatic procedure are in coma (H) the results section. BLOOD COMPONENT Routine 12/24/2016 7:25 Chronic hepatitis Resu lts for this PM ORGANIZATIONAL DEVELOPMENT CONSULTANT C without hepatic procedure are in coma (H) the results section. BLOOD COMPONENT Routine 12/24/2016 7:25 Chronic hepatitis Resu lts for this PM ORGANIZATIONAL DEVELOPMENT CONSULTANT C without hepatic procedure are in coma (H) the results section. BLOOD COMPONENT Routine 12/24/2016 7:25 Chronic hepatitis Resu lts for this PM ORGANIZATIONAL DEVELOPMENT CONSULTANT C without hepatic procedure are in coma (H) the results section. BLOOD COMPONENT Routine 12/24/2016 7:25 Chronic hepatitis Resu lts for this PM ORGANIZATIONAL DEVELOPMENT CONSULTANT C without hepatic procedure are in coma (H) the results section. BLOOD COMPONENT Routine 12/24/2016 7:25 Chronic hepatitis Resu lts for this PM ORGANIZATIONAL DEVELOPMENT CONSULTANT C without hepatic procedure are in coma (H) the results section. BLOOD COMPONENT Routine 12/24/2016 7:25 Chronic hepatitis Resu lts for this PM ORGANIZATIONAL DEVELOPMENT CONSULTANT C without hepatic procedure are in coma (H) the results section. BLOOD COMPONENT Routine 12/24/2016 7:25 Chronic hepatitis Resu lts for this PM ORGANIZATIONAL DEVELOPMENT CONSULTANT C without hepatic procedure are in coma (H) the results section. PREPARE PLASMA (UNIT) Routine 12/24/2016 7:25 Chronic hepatiti s Results for this PM ORGANIZATIONAL DEVELOPMENT CONSULTANT C without hepatic procedure are in coma (H) the results section. HYSTERECTOMY, FOLLOWING 12/24/2016 7:24 SECTION PM ORGANIZATIONAL DEVELOPMENT CONSULTANT CBC WITH PLATELETS & STAT 12/24/2016 7:06 Chronic hepatitis Results for this DIFFERENTIAL PM ORGANIZATIONAL DEVELOPMENT CONSULTANT C without hepatic procedure are in coma (H) the results section. ROUTINE UA WITH Routine 12/24/2016 7:50 Chronic hepatitis Resu lts for this MICROSCOPIC REFLEX TO AM ORGANIZATIONAL DEVELOPMENT CONSULTANT C without hepatic p rocedure are in CULTURE coma (H) the results section. URINE CULTURE Routine 12/24/2016 7:50 Chronic hepatitis Result s for this AM ORGANIZATIONAL DEVELOPMENT CONSULTANT C without hepatic procedure are in coma (H) the results section. WET PREPARATION Routine 12/23/2016 11:53 Chronic hepatitis Res ults for this PM ORGANIZATIONAL DEVELOPMENT CONSULTANT C without hepatic procedure are in coma (H) the results section. MFM BPP SINGLE Routine 12/23/2016 8:37 Results fo r this AM ORGANIZATIONAL DEVELOPMENT CONSULTANT procedure are i n the results section. BLOOD COMPONENT Routine 12/23/2016 6:54 Chronic hepatitis Resu lts for this AM ORGANIZATIONAL DEVELOPMENT CONSULTANT C without hepatic procedure are in coma (H) the results section. BLOOD COMPONENT Routine 12/23/2016 6:54 Chronic hepatitis Resu lts for this AM ORGANIZATIONAL DEVELOPMENT CONSULTANT C without hepatic procedure are in coma (H) the results section. BLOOD COMPONENT Routine 12/23/2016 6:54 Chronic hepatitis Resu lts for this AM ORGANIZATIONAL DEVELOPMENT CONSULTANT C without hepatic procedure are in coma (H) the results section. BLOOD COMPONENT Routine 12/23/2016 6:54 Chronic hepatitis Resu lts for this AM ORGANIZATIONAL DEVELOPMENT CONSULTANT C without hepatic procedure are in coma (H) the results section. BLOOD COMPONENT Routine 12/23/2016 6:54 Chronic hepatitis Resu lts for this AM ORGANIZATIONAL DEVELOPMENT CONSULTANT C without hepatic procedure are in coma (H) the results section. BLOOD COMPONENT Routine 12/23/2016 6:54 Chronic hepatitis Resu lts for this AM ORGANIZATIONAL DEVELOPMENT CONSULTANT C without hepatic procedure are in coma (H) the results section. BLOOD COMPONENT Routine 12/23/2016 6:54 Chronic hepatitis Resu lts for this AM ORGANIZATIONAL DEVELOPMENT CONSULTANT C without hepatic procedure are in coma (H) the results section. BLOOD COMPONENT Routine 12/23/2016 6:54 Chronic hepatitis Resu lts for this AM ORGANIZATIONAL DEVELOPMENT CONSULTANT C without hepatic procedure are in coma (H) the results section. BLOOD COMPONENT Routine 12/23/2016 6:54 Chronic hepatitis Resu lts for this AM ORGANIZATIONAL DEVELOPMENT CONSULTANT C without hepatic procedure are in coma (H) the results section. BLOOD COMPONENT Routine 12/23/2016 6:54 Chronic hepatitis Resu lts for this AM ORGANIZATIONAL DEVELOPMENT CONSULTANT C without hepatic procedure are in coma (H) the results section. BLOOD COMPONENT Routine 12/23/2016 6:54 Chronic hepatitis Resu lts for this AM ORGANIZATIONAL DEVELOPMENT CONSULTANT C without hepatic procedure are in coma (H) the results section. BLOOD COMPONENT Routine 12/23/2016 6:54 Chronic hepatitis Resu lts for this AM ORGANIZATIONAL DEVELOPMENT CONSULTANT C without hepatic procedure are in coma (H) the results section. ABO/RH TYPE AND SCREEN Routine 12/23/2016 6:54 Chronic hepatit is Results for this AM ORGANIZATIONAL DEVELOPMENT CONSULTANT C without hepatic procedure are in coma (H) the results section. ABO/RH TYPE AND SCREEN Timed 12/20/2016 10:48 Chronic hepati tis Results for this AM CDT C without hepatic procedure are in coma (H) the results section. [facility] BPP SINGLE Routine 12/19/2016 8:46 Results fo r this AM CDT procedure are i n the results section. ABO/RH TYPE AND SCREEN Timed 12/17/2016 6:54 Chronic hepatit is Results for this AM CDT C without hepatic procedure are in coma (H) the results section. [facility] US OB LIMITED Routine 12/16/2016 9:24 [...] procedure are i n the results section. [facility] US OB LIMITED Routine 12/12/2016 8:36 Results for this SINGLE/MULTIPLE AM CDT procedure ar e in the results section. ABO/RH TYPE AND SCREEN Timed 12/11/2016 9:05 Re sults for this AM CDT procedure are i n the results section. ECHO COMPLETE* Routine 12/10/2016 9:05 Resu lts for this AM CDT procedure are i n the results section. MFM US COMPREHENSIVE Routine 12/08/2016 9:52 Resu lts [...] (ABNORMAL) CBC with platelets (12/26/2016 8:10 AM ORGANIZATIONAL DEVELOPMENT CONSULTANT) [facility] gist Method Time Signature WBC 8.5 4.0 - 11.0 12/26/2016 [facility] 10e9/L 8:20 AM [facility] RBC Count 3.19 (L) 3.8 - 5.2 12/26/2016 [facility] 10e12/L 8:20 AM [facility] Hemoglobin 9.2 (L) 11.7 - 12/26/2016 [facility] 15.7 g/dL 8:20 AM [facility] Hematocrit 27.2 (L) 35.0 - 12/26/2016 [facility] 47.0 % 8:20 AM [facility] MCV 85 78 - 100 12/26/2016 [facility] fl 8:20 AM [facility] MCH 28.8 26.5 - 12/26/2016 [facility] 33.0 pg 8:20 AM [facility] MCHC 33.8 31.5 - 12/26/2016 [facility] 36.5 g/dL 8:20 AM [facility] RDW 14.7 10.0 - 12/26/2016 [facility] 15.0 % 8:20 AM [facility] Platelet Count 144 (L) 150 - 450 12/26/2016 [facility] 10e9/L 8:20 AM [facility] Specimen Anatomical Collection Method Collection Time Receive d Time (Source) Location / / Volume Laterality Blood specimen 12/26/2016 8:10 AM 017 8:12 (specimen) ORGANIZATIONAL DEVELOPMENT CONSULTANT AM ORGANIZATIONAL DEVELOPMENT CONSULTANT Kayla Davidson MD LAB - BLOOD ORDERABLES Performing Organization Address City/[facility]/ZIP Code Phon e Number [address] (ABNORMAL) CBC with platelets (12/25/2016 2:04 PM ORGANIZATIONAL DEVELOPMENT CONSULTANT) [facility] gist Method Time Signature WBC 9.7 4.0 - 11.0 12/25/2016 [facility] 10e9/L 2:10 PM [facility] RBC Count 3.45 (L) 3.8 - 5.2 12/25/2016 [facility] 10e12/L 2:10 PM [facility] Hemoglobin 10.1 (L) 11.7 - 12/25/2016 [facility] 15.7 g/dL 2:10 PM [facility] Hematocrit 28.8 (L) 35.0 - 12/25/2016 [facility] 47.0 % 2:10 PM [facility] MCV 84 78 - 100 12/25/2016 [facility] fl 2:10 PM [facility] MCH 29.3 26.5 - 12/25/2016 [facility] 33.0 pg 2:10 PM [facility] MCHC 35.1 31.5 - 12/25/2016 [facility] 36.5 g/dL 2:10 PM [facility] RDW 14.4 10.0 - 12/25/2016 [facility] 15.0 % 2:10 PM [facility] Platelet Count 142 (L) 150 - 450 12/25/2016 [facility] 10e9/L 2:10 PM [facility] Specimen Anatomical Collection Method Collection Time Receive d Time (Source) Location / / Volume Laterality Blood specimen 12/25/2016 2:04 PM 017 2:08 (specimen) ORGANIZATIONAL DEVELOPMENT CONSULTANT PM ORGANIZATIONAL DEVELOPMENT CONSULTANT So Nunez MD LAB - BLOOD ORDERABLES Performing Organization Address City/[facility] Code Phon e Number [place] [phone] [facility] (ABNORMAL) Magnesium (12/25/2016 7:00 AM ORGANIZATIONAL DEVELOPMENT CONSULTANT) P athologist Signature Magnesium 1.5 (L) 1.6 - 2.3 12/25/2016 [facility] mg/dL 8:07 AM [facility] Specimen Anatomical Collection Method Collection Time Receive d Time (Source) Location / / Volume Laterality Blood specimen 12/25/2016 7:00 AM 017 7:06 (specimen) ORGANIZATIONAL DEVELOPMENT CONSULTANT AM ORGANIZATIONAL DEVELOPMENT CONSULTANT So Nunez MD LAB - BLOOD ORDERABLES Performing Organization Address City/State/ZIP Code Phon e Number [facility] [address] [place] [address] [facility] (ABNORMAL) Basic metabolic panel (12/25/2016 7:00 AM ORGANIZATIONAL DEVELOPMENT CONSULTANT) Patholo gist Method Time Signature Sodium 139 133 - 144 12/25/2016 [facility] mmol/L 8:13 AM [facility] Potassium 3.8 3.4 - 5.3 12/25/2016 [facility] mmol/L 8:13 AM [facility] Chloride 108 94 - 109 12/25/2016 [facility] mmol/L 8:13 AM [facility] Carbon Dioxide 21 20 - 32 12/25/2016 [facility] mmol/L 8:13 AM [facility] Anion Gap 10 3 - 14 12/25/2016 [facility] mmol/L 8:13 AM [facility] Glucose 133 (H) 70 - 99 12/25/2016 [facility] mg/dL 8:13 AM [facility] Urea Nitrogen 5 (L) 7 - 30 12/25/2016 [facility] mg/dL 8:13 AM [facility] Creatinine 0.51 (L) 0.52 - 12/25/2016 [facility] 1.04 mg/dL 8:13 AM [facility] GFR Estimate >90 >60 12/25/2016 [facility] mL/min/1.7 8:[address] Comment: Non GFR Calc GFR Estimate If >90 >60 mL/min/1.7m2 12/25/2016 8:13 A M [facility] Black [facility] Comment: GFR Calc Calcium 7.6 (L) 8.5 - 10.1 mg/dL 12/25/2016 8:13 AM [facility] Specimen Anatomical Collection Method Collection Time Receive d Time (Source) Location / / Volume Laterality Blood specimen 12/25/2016 7:00 AM 017 7:07 (specimen) ORGANIZATIONAL DEVELOPMENT CONSULTANT AM ORGANIZATIONAL DEVELOPMENT CONSULTANT Petrona Barone DO LAB - BLOOD ORDERABLES Performing Organization Address City/[facility]/ZIP Code Phon e Number [address] [address] [facility] Fibrinogen activity (12/25/2016 7:00 AM ORGANIZATIONAL DEVELOPMENT CONSULTANT) P athologist Signature Fibrinogen 398 200 - 420 12/25/2016 [facility] mg/dL 7:58 AM [facility] Specimen Anatomical Collection Method Collection Time Receive d Time (Source) Location / / Volume Laterality Blood specimen 12/25/2016 7:00 AM 017 7:07 (specimen) ORGANIZATIONAL DEVELOPMENT CONSULTANT AM ORGANIZATIONAL DEVELOPMENT CONSULTANT Petrona Barone DO LAB - BLOOD ORDERABLES Performing Organization Address City/State/ZIP Code Phon e Number [address] [address] [facility] Partial thromboplastin time (12/25/2016 7:00 AM ORGANIZATIONAL DEVELOPMENT CONSULTANT) P athologist Signature PTT 28 22 - 37 sec 12/25/2016 [facility] 7:58 AM [facility] Specimen Anatomical Collection Method Collection Time Receive d Time (Source) Location / / Volume Laterality Blood specimen 12/25/2016 7:00 AM 017 7:07 (specimen) ORGANIZATIONAL DEVELOPMENT CONSULTANT AM ORGANIZATIONAL DEVELOPMENT CONSULTANT Petrona Barone DO LAB - BLOOD ORDERABLES Performing Organization Address City/[facility]/ZIP Code Phon e Number [address] [address] [facility] INR (12/25/2016 7:00 AM ORGANIZATIONAL DEVELOPMENT CONSULTANT) P athologist Signature INR 1.06 0.86 - 1.14 12/25/2016 [facility] 7:58 AM [facility] Specimen Anatomical Collection Method Collection Time Receive d Time (Source) Location / / Volume Laterality Blood specimen 12/25/2016 7:00 AM 11/08/2 017 7:07 (specimen) ORGANIZATIONAL DEVELOPMENT CONSULTANT AM ORGANIZATIONAL DEVELOPMENT CONSULTANT Petrona Barone DO LAB - BLOOD ORDERABLES Performing Organization Address City/State/ZIP Code Phon e Number [address] [address] [facility] (ABNORMAL) CBC with platelets (12/25/2016 7:00 AM ORGANIZATIONAL DEVELOPMENT CONSULTANT) Patholo gist Method Time Signature WBC 12.7 (H) 4.0 - 11.0 12/25/2016 [facility] 10e9/L 7:51 AM [facility] RBC Count 4.05 3.8 - 5.2 12/25/2016 [facility] 10e12/L 7:51 AM [facility] Hemoglobin 11.5 (L) 11.7 - 12/25/2016 [facility] 15.7 g/dL 7:51 AM [facility] Hematocrit 33.8 (L) 35.0 - 12/25/2016 [facility] 47.0 % 7:51 AM [facility] MCV 84 78 - 100 12/25/2016 [facility] fl 7:51 AM [facility] MCH 28.4 26.5 - 12/25/2016 [facility] 33.0 pg 7:51 AM [facility] MCHC 34.0 31.5 - 12/25/2016 [facility] 36.5 g/dL 7:51 AM [facility] RDW 14.0 10.0 - 12/25/2016 [facility] 15.0 % 7:51 AM [facility] Platelet Count 160 150 - 450 12/25/2016 [facility] 10e9/L 7:51 AM [facility] Specimen Anatomical Collection Method Collection Time Receive d Time (Source) Location / / Volume Laterality Blood specimen 12/25/2016 7:00 AM 017 7:07 (specimen) ORGANIZATIONAL DEVELOPMENT CONSULTANT AM ORGANIZATIONAL DEVELOPMENT CONSULTANT Petrona Barone DO LAB - BLOOD ORDERABLES Performing Organization Address City/[facility]/ZIP Code Phon e Number [address] [address] [facility] Partial thromboplastin time (12/25/2016 12:54 AM ORGANIZATIONAL DEVELOPMENT CONSULTANT) P athologist Signature PTT 28 22 - 37 sec 12/25/2016 [facility] 1:52 AM [facility] Specimen Anatomical Collection Method Collection Time Receive d Time (Source) Location / / Volume Laterality Blood specimen 12/25/2016 12:54 7 1:10 (specimen) AM ORGANIZATIONAL DEVELOPMENT CONSULTANT AM ORGANIZATIONAL DEVELOPMENT CONSULTANT Nora Torres MD LAB - BLOOD ORDERABLES Performing Organization Address City/[facility]/ZIP Code Phon e Number [address] [address] [facility] INR (12/25/2016 12:54 AM ORGANIZATIONAL DEVELOPMENT CONSULTANT) P athologist Signature INR 1.11 0.86 - 1.14 12/25/2016 [facility] 1:52 AM [facility] Specimen Anatomical Collection Method Collection Time Receive d Time (Source) Location / / Volume Laterality Blood specimen 12/25/2016 12:54 7 1:10 (specimen) AM ORGANIZATIONAL DEVELOPMENT CONSULTANT AM ORGANIZATIONAL DEVELOPMENT CONSULTANT Nora Torres MD LAB - BLOOD ORDERABLES Performing Organization Address City/[facility]/ZIP Code Phon e Number [address] [address] [facility] Fibrinogen activity (12/25/2016 12:54 AM ORGANIZATIONAL DEVELOPMENT CONSULTANT) P athologist Signature Fibrinogen 338 200 - 420 12/25/2016 [facility] mg/dL 1:52 AM [facility] Specimen Anatomical Collection Method Collection Time Receive d Time (Source) Location / / Volume Laterality Blood specimen 12/25/2016 12:54 7 1:10 (specimen) AM ORGANIZATIONAL DEVELOPMENT CONSULTANT AM ORGANIZATIONAL DEVELOPMENT CONSULTANT Nora Torres MD LAB - BLOOD ORDERABLES Performing Organization Address City/[facility] Phon e Number [address] [address] [facility] (ABNORMAL) CBC with platelets (12/25/2016 12:54 AM ORGANIZATIONAL DEVELOPMENT CONSULTANT) Analysis Performed At Patho logist Time Signature WBC 11.0 4.0 - 11.0 12/25/2016 [facility] 10e9/L 1:42 AM [facility] RBC Count 4.22 3.8 - 5.2 12/25/2016 [facility] 10e12/L 1:42 AM [facility] Hemoglobin 12.2 11.7 - 12/25/2016 [facility] 15.7 g/dL 1:42 AM [facility] Hematocrit 35.9 35.0 - 12/25/2016 [facility] 47.0 % 1:42 AM [facility] MCV 85 78 - 100 12/25/2016 [facility] fl 1:42 AM [facility] MCH 28.9 26.5 - 12/25/2016 [facility] 33.0 pg 1:42 AM [facility] MCHC 34.0 31.5 - 12/25/2016 [facility] 36.5 g/dL 1:42 AM [facility] RDW 13.6 10.0 - 12/25/2016 [facility] 15.0 % 1:42 AM [facility] Platelet Count 149 (L) 150 - 450 12/25/2016 [facility] 10e9/L 1:42 AM [facility] Specimen Anatomical Collection Method Collection Time Receive d Time (Source) Location / / Volume Laterality Blood specimen 12/25/2016 12:54 7 1:10 (specimen) AM ORGANIZATIONAL DEVELOPMENT CONSULTANT AM ORGANIZATIONAL DEVELOPMENT CONSULTANT Nora Torres MD LAB - BLOOD ORDERABLES Performing Organization Address City/State/ZIP Code Phon e Number [facility] [address] [place] [address] [facility] (ABNORMAL) Basic metabolic panel (12/25/2016 12:54 AM ORGANIZATIONAL DEVELOPMENT CONSULTANT) Analysis Performed At Patho logist Time Signature Sodium 142 133 - 144 12/25/2016 [facility] mmol/L 1:49 AM [facility] Potassium 4.0 3.4 - 5.3 12/25/2016 [facility] mmol/L 1:49 AM [facility] Chloride 113 (H) 94 - 109 12/25/2016 [facility] mmol/L 1:49 AM [facility] Carbon Dioxide 22 20 - 32 12/25/2016 [facility] mmol/L 1:49 AM [facility] Anion Gap 7 3 - 14 12/25/2016 [facility] mmol/L 1:49 AM [facility] Glucose 147 (H) 70 - 99 12/25/2016 [facility] mg/dL 1:49 AM [facility] Urea Nitrogen 6 (L) 7 - 30 12/25/2016 [facility] mg/dL 1:49 AM [facility] Creatinine 0.54 0.52 - 12/25/2016 [facility] 1.04 mg/dL 1:49 AM [facility] GFR Estimate >90 >60 12/25/2016 [facility] mL/min/1.7 1:[address] Comment: Non GFR Calc GFR Estimate If >90 >60 mL/min/1.7m2 12/25/2016 1:49 A M [facility] Black [facility] Comment: GFR Calc Calcium 8.0 (L) 8.5 - 10.1 mg/dL 12/25/2016 1:49 AM [facility] Specimen Anatomical Collection Method Collection Time Receive d Time (Source) Location / / Volume Laterality Blood specimen 12/25/2016 12:54 7 1:10 (specimen) AM ORGANIZATIONAL DEVELOPMENT CONSULTANT AM ORGANIZATIONAL DEVELOPMENT CONSULTANT Nora Torres MD LAB - BLOOD ORDERABLES Performing Organization Address City/State/ZIP Code Phon e Number [facility] [address] [place] [address] [facility] XR Abdomen Port 1 View (12/24/2016 11:10 PM ORGANIZATIONAL DEVELOPMENT CONSULTANT) Anatomical Region Laterality Modality Abdomen/Pelvis Computed Radiography Specimen (Source) Anatomical Location Collection Method / Collectio n Time Received Time / Laterality Volume Impressions 12/24/2016 11:52 PM ORGANIZATIONAL DEVELOPMENT CONSULTANT IMPRESSION: No radiopaque foreign objects are present in the visualized portion of the abdomen and pe lvis. CHEIKH COURTNEY MD Narrative 12/24/2016 11:52 PM ORGANIZATIONAL DEVELOPMENT CONSULTANT ABDOMEN SINGLE VIEW ??12/24/2016 11:10 PM HISTORY: [...] ORDER JEFFERY Blood component (12/24/2016 10:59 PM ORGANIZATIONAL DEVELOPMENT CONSULTANT) Component Value Ref Test Analysis Performed At [facility] gist Range Method Time Signature Unit Number [id number] 12/24/2016 [facility] 11:06 PM [facility] Blood 5 cryoprecipitate 12/24/2016 [facility] Component units pooled 11:06 PM MD MEDICAL Type [facility] Division 00 12/24/2016 [facility] Number 11:06 PM [facility] Status of Released to care 12/24/2016 [facility] O F Unit unit 11:58 PM [facility] Blood [id number] 12/24/2016 [facility] Product Code 11:06 PM [facility] Unit Status [facility] Specimen Anatomical Collection Method Collection Time Receive d Time (Source) Location / / Volume Laterality 12/24/2016 10:59 12/24/2016 PM ORGANIZATIONAL DEVELOPMENT CONSULTANT 11:04 PM ORGANIZATIONAL DEVELOPMENT CONSULTANT Nora Leyva MD LABORATORY Performing Organization Address City/State/ZIP Code Phon e Number [facility] [address] [place], [place] [id number] [place] [address] [address] [place] [address] [facility] (ABNORMAL) Arterial Panel (12/24/2016 10:45 PM ORGANIZATIONAL DEVELOPMENT CONSULTANT) [facility] Method Time Signature pH Arterial 7.35 7.35 - 12/24/2016 [facility] 7.45 pH 10:57 PM [facility] pCO2 Arterial 36 35 - 45 mm 12/24/2016 [facility] Hg 10:57 PM [facility] pO2 Arterial 207 (H) 80 - 105 12/24/2016 [facility] mm Hg 10:57 PM [facility] Bicarbonate 20 (L) 21 - 28 12/24/2016 [facility] mmol/L 10:57 PM [facility] Base Deficit Art 4.9 mmol/L 12/24/2016 [facility] F 10:57 PM [facility] Comment: Reference range: -9.0 to 1.8 FIO2 50 12/24/2016 10:50 PM [facility] Sodium 135 133 - 144 12/24/2016 10:57 PM [facility] mmol/L [facility] Potassium 4.0 3.4 - 5.3 12/24/2016 10:57 PM [facility] mmol/L [facility] Hemoglobin 10.1 (L) 11.7 - 15.7 12/24/2016 10:57 PM [facility] MD g/dL [facility] Glucose 161 (H) 70 - 99 mg/dL 12/24/2016 10:57 PM [facility] Calcium Ionized 5.1 4.4 - 5.2 12/24/2016 10:57 PM [facility] MD Whole Blood mg/dL [facility] T B[facility] Specimen Anatomical Collection Method Collection Time Receive d Time (Source) Location / / Volume Laterality 12/24/2016 10:45 12/24/2016 PM ORGANIZATIONAL DEVELOPMENT CONSULTANT 10:49 PM ORGANIZATIONAL DEVELOPMENT CONSULTANT Nora Leyva MD LAB - BLOOD ORDERABLES Performing Organization Address City/State/ZIP Code Phon e Number [facility] [address] [place] [address] [facility] Surgical pathology exam (12/24/2016 10:13 PM ORGANIZATIONAL DEVELOPMENT CONSULTANT) Component Value Ref Test Analysis Performed Pathologis t Range Method Time At Signature Copath Patient Name: DEANN KING Report MR#: [id number] Specimen #: [id number] Collected: 12/24/2016 Received: 12/25/2016 Reported: 12/31/2016 10:03 [...] Electronically signed out by: Moshe Isaac M.D., [facility] CLINICAL HISTORY: 36-year-old admitted at [...] fundus to cervix, 8.0 cm anterior to inpatient services director ior, and 9.5 cm cornu [...] endometrium is irregular-shaped. No masses are identified. Face And Fill Packer sections are submitted. Summary of Sections: A1 [...] fallopian tube wi th a pin-point lumen. Face And Fill Packer sections are submitted in ca ssette B1. [...] fallopian tube wi th a pin-point lumen. Face And Fill Packer sections are submitted in ca ssette C1. [...] measuring 2.0 x 2.0 x 1.2 cm. Face And Fill Packer sections are submitted as follows: Summary of [...] The section submitted as possible thrombus at [facility] shows a remote retroplacental hematoma. CPT Codes: A: 58847-JX8, 32843-CJK, 43351-WCY B: 93302-BI7 C: 64922-AV9 D: 51020-GW9 TESTING LAB LOCATION: [facility], [address] [place] [id number] COLLECTION SITE: Client: [facility] Location: [id number] (B) Specimen (Source) Anatomical Collection Method Collection Time Re ceived Time Location / / Volume Laterality Tissue specimen UTERUS AND CERVIX, 12/24/2016 10:13 (specimen) CS / Unknown PM ORGANIZATIONAL DEVELOPMENT CONSULTANT Tissue specimen STRUCTURE OF RIGHT 12/24/2016 10:14 (specimen) FALLOPIAN TUBE / PM ORGANIZATIONAL DEVELOPMENT CONSULTANT Unknown Tissue specimen STRUCTURE OF LEFT 12/24/2016 10:14 (specimen) FALLOPIAN TUBE / PM ORGANIZATIONAL DEVELOPMENT CONSULTANT Unknown So Nunez MD LAB - BEAKER AP Performing Organization Address City/State/ZIP Code Phon e Number [place] Partial thromboplastin time (12/24/2016 9:50 PM ORGANIZATIONAL DEVELOPMENT CONSULTANT) P athologist Signature PTT 33 22 - 37 sec 12/24/2016 [facility] 10:05 PM [facility] Specimen Anatomical Collection Method Collection Time Receive d Time (Source) Location / / Volume Laterality 12/24/2016 9:50 PM 7 9:52 ORGANIZATIONAL DEVELOPMENT CONSULTANT PM ORGANIZATIONAL DEVELOPMENT CONSULTANT Nora Leyva MD LAB - BLOOD ORDERABLES Performing Organization Address City/State/ZIP Code Phon e Number [address] (ABNORMAL) INR (12/24/2016 9:50 PM ORGANIZATIONAL DEVELOPMENT CONSULTANT) P athologist Signature INR 1.50 (H) 0.86 - 1.14 12/24/2016 [facility] 10:05 PM [facility] Specimen Anatomical Collection Method Collection Time Receive d Time (Source) Location / / Volume Laterality 12/24/2016 9:50 PM 7 9:52 ORGANIZATIONAL DEVELOPMENT CONSULTANT PM ORGANIZATIONAL DEVELOPMENT CONSULTANT Nora Leyva MD LAB - BLOOD ORDERABLES Performing Organization Address City/[facility]/ZIP Code Phon e Number [address] (ABNORMAL) Fibrinogen activity (12/24/2016 9:50 PM ORGANIZATIONAL DEVELOPMENT CONSULTANT) P athologist Signature Fibrinogen 189 (L) 200 - 420 12/24/2016 [facility] mg/dL 10:05 PM [facility] Specimen Anatomical Collection Method Collection Time Receive d Time (Source) Location / / Volume Laterality 12/24/2016 9:50 PM 7 9:52 ORGANIZATIONAL DEVELOPMENT CONSULTANT PM ORGANIZATIONAL DEVELOPMENT CONSULTANT Nora Leyva MD LAB - BLOOD ORDERABLES Performing Organization Address City/State/ZIP Code Phon e Number [place] [id number] [facility] (ABNORMAL) CBC with platelets (12/24/2016 9:50 PM ORGANIZATIONAL DEVELOPMENT CONSULTANT) [facility] gist Method Time Signature WBC 10.3 4.0 - 11.0 12/24/2016 [facility] 10e9/L 9:58 PM [facility] RBC Count 2.61 (L) 3.8 - 5.2 12/24/2016 [facility] 10e12/L 9:58 PM [facility] Hemoglobin 7.5 (L) 11.7 - 12/24/2016 [facility] 15.7 g/dL 9:58 PM [facility] Hematocrit 23.1 (L) 35.0 - 12/24/2016 [facility] 47.0 % 9:58 PM [facility] MCV 89 78 - 100 12/24/2016 [facility] fl 9:58 PM [facility] MCH 28.7 26.5 - 12/24/2016 [facility] 33.0 pg 9:58 PM [facility] MCHC 32.5 31.5 - 12/24/2016 [facility] 36.5 g/dL 9:58 PM [facility] RDW 14.5 10.0 - 12/24/2016 [facility] 15.0 % 9:58 PM [facility] Platelet Count 105 (L) 150 - 450 12/24/2016 [facility] 10e9/L 9:58 PM [facility] Specimen Anatomical Collection Method Collection Time Receive d Time (Source) Location / / Volume Laterality 12/24/2016 9:50 PM 7 9:52 ORGANIZATIONAL DEVELOPMENT CONSULTANT PM ORGANIZATIONAL DEVELOPMENT CONSULTANT Nora Leyva MD LAB - BLOOD ORDERABLES Performing Organization Address City/State/ZIP Code Phon e Number [facility] [address] [place] [address] [facility] (ABNORMAL) Arterial Panel (12/24/2016 9:50 PM ORGANIZATIONAL DEVELOPMENT CONSULTANT) [facility] Method Time Signature pH Arterial 7.31 (L) 7.35 - 12/24/2016 [facility] 7.45 pH 9:58 PM [facility] pCO2 Arterial 38 35 - 45 12/24/2016 [facility] mm Hg 9:58 PM [facility] pO2 Arterial 197 (H) 80 - 105 12/24/2016 [facility] mm Hg 9:58 PM [facility] Bicarbonate 19 (L) 21 - 28 12/24/2016 [facility] Arterial mmol/L 9:58 PM [facility] Base Deficit Art 6.8 mmol/L 12/24/2016 [facility] F 9:58 PM [facility] Comment: Reference range: -9.0 to 1.8 FIO2 50 12/24/2016 9:54 PM [facility] Sodium 137 133 - 144 12/24/2016 9:58 PM [facility] mmol/L [facility] Potassium 3.7 3.4 - 5.3 12/24/2016 9:58 PM [facility] mmol/L [facility] Hemoglobin 7.5 (L) 11.7 - 15.7 12/24/2016 9:58 PM [facility] g/dL [facility] Glucose 155 (H) 70 - 99 mg/dL 12/24/2016 9:58 PM [facility] Calcium Ionized 4.6 4.4 - 5.2 12/24/2016 9:58 PM [facility] MD Whole Blood mg/dL [facility] T BANK Specimen Anatomical Collection Method Collection Time Receive d Time (Source) Location / / Volume Laterality 12/24/2016 9:50 PM 7 9:52 ORGANIZATIONAL DEVELOPMENT CONSULTANT PM ORGANIZATIONAL DEVELOPMENT CONSULTANT Nora Leyva MD LAB - BLOOD ORDERABLES Performing Organization Address City/State/ZIP Code Phon e Number [facility] [address] [place] [address] [facility] (ABNORMAL) Arterial Panel (12/24/2016 9:20 PM [facility]) [facility] gist Method Time Signature pH Arterial 7.31 (L) 7.35 - 12/24/2016 [facility] 7.45 pH 9:28 PM [facility] pCO2 Arterial 40 35 - 45 12/24/2016 [facility] mm Hg 9:28 PM [facility] pO2 Arterial 191 (H) 80 - 105 12/24/2016 [facility] mm Hg 9:28 PM [facility] Bicarbonate 20 (L) 21 - 28 12/24/2016 [facility] Arterial mmol/L 9:28 PM [facility] Base Deficit Art 5.8 mmol/L 12/24/2016 [facility] F 9:28 PM [facility] Comment: Reference range: -9.0 to 1.8 FIO2 50% 12/24/2016 9:26 PM [facility] Sodium 136 133 - 144 12/24/2016 9:28 PM [facility] mmol/L [facility] Potassium 3.9 3.4 - 5.3 12/24/2016 9:28 PM [facility] mmol/L [facility] Hemoglobin 8.7 (L) 11.7 - 15.7 12/24/2016 9:28 PM [facility] MD g/dL [facility] Glucose 165 (H) 70 - 99 mg/dL 12/24/2016 9:28 PM [facility] Calcium Ionized 4.4 4.4 - 5.2 12/24/2016 9:28 PM [facility] Whole Blood mg/dL [facility] BANK Specimen Anatomical Collection Method Collection Time Receive d Time (Source) Location / / Volume Laterality 12/24/2016 9:20 PM 7 9:25 ORGANIZATIONAL DEVELOPMENT CONSULTANT PM ORGANIZATIONAL DEVELOPMENT CONSULTANT Nora Leyva MD LAB - BLOOD ORDERABLES Performing Organization Address City/State/ZIP Code Phon e Number [facility] [address] [place] [address] [facility] Blood component (12/24/2016 8:45 PM ORGANIZATIONAL DEVELOPMENT CONSULTANT) [facility] gist Method Time Signature Unit Number [id number] 12/24/2016 [facility] 7 10:07 PM [facility] Blood PlateletPher 12/24/2016 [facility] Component esis,LeukoRe 10:07 PM [facility] Type d [facility] (Part [facility] BANK Division 00 12/24/2016 [facility] Number 10:07 PM [facility] Status of Released to 12/24/2016 [facility] Unit care unit 11:58 PM [facility] Blood Product [id number] 12/24/2016 [facility] Code 10:07 PM [facility] Unit Status [facility] Specimen Anatomical Collection Method Collection Time Receive d Time (Source) Location / / Volume Laterality 12/24/2016 8:45 PM 7 8:50 ORGANIZATIONAL DEVELOPMENT CONSULTANT PM ORGANIZATIONAL DEVELOPMENT CONSULTANT Nora Leyva MD LABORATORY Performing Organization Address City/State/ZIP Code Phon e Number [facility] [address] [place] [address] [address] [facility] Blood component (12/24/2016 8:45 PM ORGANIZATIONAL DEVELOPMENT CONSULTANT) [facility] Method Time Signature Unit Number [id number] 12/24/2016 [facility] 2 8:52 PM ORGANIZATIONAL DEVELOPMENT CONSULTANT [facility] BANK Blood PlateletPher 12/24/2016 [facility] Component esis,LeukoRe 8:52 PM ORGANIZATIONAL DEVELOPMENT CONSULTANT [facility] WEST (Part 2) BANK Division 00 12/24/2016 [facility] Number 8:52 PM ORGANIZATIONAL DEVELOPMENT CONSULTANT [facility] WEST BANK Status of Released to 12/24/2016 [facility] Unit care unit 11:58 PM ORGANIZATIONAL DEVELOPMENT CONSULTANT [facility] Blood Product [id number] 12/24/2016 [facility] Code 8:52 PM [facility] Unit Status [facility] Specimen Anatomical Collection Method Collection Time Receive d Time (Source) Location / / Volume Laterality 12/24/2016 8:45 PM 7 8:50 ORGANIZATIONAL DEVELOPMENT CONSULTANT PM ORGANIZATIONAL DEVELOPMENT CONSULTANT Nora Leyva MD LABORATORY Performing Organization Address City/State/ZIP Code Phon e Number [facility] [address] [place] [address] [address] [facility] Platelets prepare order unit (12/24/2016 8:45 PM ORGANIZATIONAL DEVELOPMENT CONSULTANT) [facility] Method Time Signature Blood PLT Pheresis 12/24/2016 [facility] 8:50 PM ORGANIZATIONAL DEVELOPMENT CONSULTANT [facility] WEST BANK Units Ordered 2 12/24/2016 [facility] 10:07 PM [facility] Specimen Anatomical Collection Method Collection Time Receive d Time (Source) Location / / Volume Laterality 12/24/2016 8:45 PM 7 8:50 ORGANIZATIONAL DEVELOPMENT CONSULTANT PM ORGANIZATIONAL DEVELOPMENT CONSULTANT Nora Leyva MD BLOOD BANK PRODUCT ORDERABLE S Performing Organization Address City/State/ZIP Code Phon e Number [address] [address] [facility] Partial thromboplastin time (12/24/2016 8:44 PM ORGANIZATIONAL DEVELOPMENT CONSULTANT) P athologist Signature PTT 30 22 - 37 sec 12/24/2016 [facility] 9:05 PM [facility] Specimen Anatomical Collection Method Collection Time Receive d Time (Source) Location / / Volume Laterality 12/24/2016 8:44 PM 7 8:51 ORGANIZATIONAL DEVELOPMENT CONSULTANT PM ORGANIZATIONAL DEVELOPMENT CONSULTANT Nora Leyva MD LAB - BLOOD ORDERABLES Performing Organization Address City/State/ZIP Code Phon e Number [address] [address] [facility] (ABNORMAL) INR (12/24/2016 8:44 PM ORGANIZATIONAL DEVELOPMENT CONSULTANT) P athologist Signature INR 1.16 (H) 0.86 - 1.14 12/24/2016 [facility] 9:05 PM [facility] Specimen Anatomical Collection Method Collection Time Receive d Time (Source) Location / / Volume Laterality 12/24/2016 8:44 PM 7 8:51 ORGANIZATIONAL DEVELOPMENT CONSULTANT PM ORGANIZATIONAL DEVELOPMENT CONSULTANT Nora Leyva MD LAB - BLOOD ORDERABLES Performing Organization Address City/[facility]/ZIP Code Phon e Number [address] [address] [facility] Fibrinogen activity (12/24/2016 8:44 PM ORGANIZATIONAL DEVELOPMENT CONSULTANT) P athologist Signature Fibrinogen 328 200 - 420 12/24/2016 [facility] mg/dL 9:05 PM [facility] Specimen Anatomical Collection Method Collection Time Receive d Time (Source) Location / / Volume Laterality 12/24/2016 8:44 PM 7 8:51 ORGANIZATIONAL DEVELOPMENT CONSULTANT PM ORGANIZATIONAL DEVELOPMENT CONSULTANT Nora Leyva MD LAB - BLOOD ORDERABLES Performing Organization Address City/[facility]/ZIP Code Phon e Number [address] [address] [facility] (ABNORMAL) CBC with platelets (12/24/2016 8:44 PM ORGANIZATIONAL DEVELOPMENT CONSULTANT) Patholo gist Method Time Signature WBC 5.8 4.0 - 11.0 12/24/2016 [facility] 10e9/L 9:16 PM [facility] RBC Count 2.70 (L) 3.8 - 5.2 12/24/2016 [facility] 10e12/L 9:16 PM [facility] Hemoglobin 7.7 (L) 11.7 - 12/24/2016 [facility] 15.7 g/dL 9:16 PM [facility] Hematocrit 24.0 (L) 35.0 - 12/24/2016 [facility] 47.0 % 9:16 PM [facility] MCV 89 78 - 100 12/24/2016 [facility] fl 9:16 PM [facility] MCH 28.5 26.5 - 12/24/2016 [facility] 33.0 pg 9:16 PM [facility] MCHC 32.1 31.5 - 12/24/2016 [facility] 36.5 g/dL 9:16 PM [facility] RDW 16.4 (H) 10.0 - 12/24/2016 [facility] 15.0 % 9:16 PM [facility] Platelet Count 156 150 - 450 12/24/2016 [facility] 10e9/L 9:16 PM [facility] Specimen Anatomical Collection Method Collection Time Receive d Time (Source) Location / / Volume Laterality 12/24/2016 8:44 PM 7 8:51 ORGANIZATIONAL DEVELOPMENT CONSULTANT PM ORGANIZATIONAL DEVELOPMENT CONSULTANT Nora Leyva MD LAB - BLOOD ORDERABLES Performing Organization Address City/State/ZIP Code Phon e Number [facility] [address] [place] [address] [facility] (ABNORMAL) Arterial Panel (12/24/2016 8:44 PM [facility]) [facility] gist Method Time Signature pH Arterial 7.29 (L) 7.35 - 12/24/2016 [facility] 7.45 pH 8:56 PM [facility] pCO2 Arterial 41 35 - 45 12/24/2016 [facility] mm Hg 8:56 PM [facility] pO2 Arterial 355 (H) 80 - 105 12/24/2016 [facility] mm Hg 8:56 PM [facility] Bicarbonate 20 (L) 21 - 28 12/24/2016 [facility] Arterial mmol/L 8:56 PM [facility] Base Deficit Art 6.1 mmol/L 12/24/2016 [facility] F 8:56 PM [facility] Comment: Reference range: -9.0 to 1.8 FIO2 100% 12/24/2016 8:53 PM [facility] Sodium 137 133 - 144 12/24/2016 8:56 PM [facility] mmol/L [facility] Potassium 3.6 3.4 - 5.3 12/24/2016 8:56 PM [facility] mmol/L [facility] Hemoglobin 7.6 (L) 11.7 - 15.7 12/24/2016 8:56 PM [facility] MD g/dL [facility] Glucose 160 (H) 70 - 99 mg/dL 12/24/2016 8:56 PM [facility] Calcium Ionized 4.1 (L) 4.4 - 5.2 12/24/2016 8:56 PM [facility] MD Whole Blood mg/dL [facility] T BANK Specimen Anatomical Collection Method Collection Time Receive d Time (Source) Location / / Volume Laterality 12/24/2016 8:44 PM 7 8:51 ORGANIZATIONAL DEVELOPMENT CONSULTANT PM ORGANIZATIONAL DEVELOPMENT CONSULTANT Nora Leyva MD LAB - BLOOD ORDERABLES Performing Organization Address City/State/ZIP Code Phon e Number [facility] [address] [place] [address] [facility] (ABNORMAL) Arterial Panel (12/24/2016 8:25 PM ORGANIZATIONAL DEVELOPMENT CONSULTANT) [facility] Method Time Signature pH Arterial 7.30 (L) 7.35 - 12/24/2016 [facility] 7.45 pH 8:33 PM [facility] pCO2 Arterial 40 35 - 45 12/24/2016 [facility] mm Hg 8:33 PM [facility] pO2 Arterial 195 (H) 80 - 105 12/24/2016 [facility] mm Hg 8:33 PM [facility] Bicarbonate 19 (L) 21 - 28 12/24/2016 [facility] Arterial mmol/L 8:33 PM [facility] Base Deficit Art 6.6 mmol/L 12/24/2016 [facility] F 8:33 PM [facility] Comment: Reference range: -9.0 to 1.8 FIO2 100% 12/24/2016 8:29 PM [facility] Sodium 135 133 - 144 12/24/2016 8:33 PM [facility] mmol/L [facility] Potassium 4.1 3.4 - 5.3 12/24/2016 8:33 PM [facility] mmol/L [facility] Hemoglobin 8.0 (L) 11.7 - 15.7 12/24/2016 8:33 PM [facility] MD g/dL [facility] Glucose 136 (H) 70 - 99 mg/dL 12/24/2016 8:33 PM [facility] Calcium Ionized 4.3 (L) 4.4 - 5.2 12/24/2016 8:33 PM [facility] MD Whole Blood mg/dL [facility] T BANK Specimen Anatomical Collection Method Collection Time Receive d Time (Source) Location / / Volume Laterality 12/24/2016 8:25 PM 7 8:29 ORGANIZATIONAL DEVELOPMENT CONSULTANT PM ORGANIZATIONAL DEVELOPMENT CONSULTANT Nora Leyva MD LAB - BLOOD ORDERABLES Performing Organization Address City/[facility]/ZIP Code Phon e Number [address] [address] [facility] Blood component (12/24/2016 7:25 PM ORGANIZATIONAL DEVELOPMENT CONSULTANT) [facility] [employer] Method Time Signature Unit Number [id number] 12/24/2016 [facility] 10:10 PM [facility] BANK Blood Plasma, 12/24/2016 [facility] Component Thawed 10:10 PM [facility] WEST BANK Division 00 12/24/2016 [facility] Number 10:10 PM [facility] Status of No longer 12/24/2016 [facility] Unit available 11:49 PM [facility] 12/24/2016 [facility] 2349 BANK Blood Product [id number] 12/24/2016 [facility] Code 10:10 PM [facility] Unit Status [facility] Specimen Anatomical Collection Method Collection Time Receive d Time (Source) Location / / Volume Laterality 12/24/2016 7:25 PM 7 7:30 ORGANIZATIONAL DEVELOPMENT CONSULTANT PM ORGANIZATIONAL DEVELOPMENT CONSULTANT Nora Leyva MD LAB - BLOOD BANK PRODUCT ORD ER Performing Organization Address City/State/ZIP Code Phon e Number [address] [address] [facility] Blood component (12/24/2016 7:25 PM ORGANIZATIONAL DEVELOPMENT CONSULTANT) [facility] [employer] Method Time Signature Unit Number [id number] 12/24/2016 [facility] 10:10 PM [facility] BANK Blood Plasma, 12/24/2016 [facility] Component Thawed 10:10 PM ORGANIZATIONAL DEVELOPMENT CONSULTANT [facility] BANK Division 00 12/24/2016 [facility] Number 10:10 PM ORGANIZATIONAL DEVELOPMENT CONSULTANT [facility] BANK Status of No longer 12/24/2016 [facility] Unit available 11:48 PM ORGANIZATIONAL DEVELOPMENT CONSULTANT [facility] 12/24/2016 [facility] BANK Blood Product [id number] 12/24/2016 [facility] Code 10:10 PM ORGANIZATIONAL DEVELOPMENT CONSULTANT [facility] Unit Status [facility] Specimen Anatomical Collection Method Collection Time Receive d Time (Source) Location / / Volume Laterality 12/24/2016 7:25 PM 7 7:30 ORGANIZATIONAL DEVELOPMENT CONSULTANT PM ORGANIZATIONAL DEVELOPMENT CONSULTANT Nora Leyva MD LAB - BLOOD BANK PRODUCT ORD ER Performing Organization Address City/State/ZIP Code Phon e Number [address] [address] [facility] Blood component (12/24/2016 7:25 PM ORGANIZATIONAL DEVELOPMENT CONSULTANT) [facility] [employer] Method Time Signature Unit Number [id number] 12/24/2016 [facility] 9 9:03 PM ORGANIZATIONAL DEVELOPMENT CONSULTANT [facility] BANK Blood Plasma, 12/24/2016 [facility] Component Thawed 9:03 PM ORGANIZATIONAL DEVELOPMENT CONSULTANT [facility] BANK Division 00 12/24/2016 [facility] Number 9:03 PM [facility] Status of Released to 12/24/2016 [facility] Unit care unit 11:58 PM ORGANIZATIONAL DEVELOPMENT CONSULTANT [facility] Blood Product [id number] 12/24/2016 [facility] Code 9:03 PM ORGANIZATIONAL DEVELOPMENT CONSULTANT [facility] Unit Status [facility] Specimen Anatomical Collection Method Collection Time Receive d Time (Source) Location / / Volume Laterality 12/24/2016 7:25 PM 7 7:30 ORGANIZATIONAL DEVELOPMENT CONSULTANT PM ORGANIZATIONAL DEVELOPMENT CONSULTANT Nora Leyva MD LABORATORY Performing Organization Address City/State/ZIP Code Phon e Number [facility] [address] [place] [address] [address] [facility] Blood component (12/24/2016 7:25 PM ORGANIZATIONAL DEVELOPMENT CONSULTANT) [facility] [employer] Method Time Signature Unit Number [id number] 12/24/2016 [facility] 7 9:03 PM ORGANIZATIONAL DEVELOPMENT CONSULTANT [facility] Blood Plasma, 12/24/2016 [facility] Component Thawed 9:03 PM ORGANIZATIONAL DEVELOPMENT CONSULTANT [facility] WEST BANK Division 00 12/24/2016 [facility] Number 9:03 PM ORGANIZATIONAL DEVELOPMENT CONSULTANT [facility] BANK Status of Released to 12/24/2016 [facility] Unit care unit 11:58 PM ORGANIZATIONAL DEVELOPMENT CONSULTANT [facility] Blood Product [id number] 12/24/2016 [facility] Code 9:03 PM ORGANIZATIONAL DEVELOPMENT CONSULTANT [facility] BANK Unit Status [facility] Specimen Anatomical Collection Method Collection Time Receive d Time (Source) Location / / Volume Laterality 12/24/2016 7:25 PM 7 7:30 ORGANIZATIONAL DEVELOPMENT CONSULTANT PM ORGANIZATIONAL DEVELOPMENT CONSULTANT Nora Leyva MD LABORATORY Performing Organization Address City/[facility]/ZIP Code Phon e Number [facility] [address] [place] [address] [address] [facility] Blood component (12/24/2016 7:25 PM ORGANIZATIONAL DEVELOPMENT CONSULTANT) [employer] Method Time Signature Unit Number [id number] 12/24/2016 [facility] 8:18 PM ORGANIZATIONAL DEVELOPMENT CONSULTANT [facility] BANK Blood Apheresis 12/24/2016 [facility] Component Plasma Thawed 8:18 PM ORGANIZATIONAL DEVELOPMENT CONSULTANT [facility] WE[facility] BANK Division 00 12/24/2016 [facility] Number 8:18 PM ORGANIZATIONAL DEVELOPMENT CONSULTANT [facility] BANK Status of Released to 12/24/2016 [facility] Unit care unit 11:58 PM ORGANIZATIONAL DEVELOPMENT CONSULTANT [facility] Blood Product [id number] 12/24/2016 [facility] Code 8:18 PM ORGANIZATIONAL DEVELOPMENT CONSULTANT [facility] BANK Unit Status [facility] Specimen Anatomical Collection Method Collection Time Receive d Time (Source) Location / / Volume Laterality 12/24/2016 7:25 PM 7 7:30 ORGANIZATIONAL DEVELOPMENT CONSULTANT PM ORGANIZATIONAL DEVELOPMENT CONSULTANT Nora Leyva MD LABORATORY Performing Organization Address City/State/ZIP Code Phon e Number [facility] [address] [place] [address] [place] [address] Blood component (12/24/2016 7:25 PM ORGANIZATIONAL DEVELOPMENT CONSULTANT) [employer] Method Time Signature Unit Number [id number] 12/24/2016 [facility] 5 8:18 PM ORGANIZATIONAL DEVELOPMENT CONSULTANT [facility] BANK Blood Plasma, 12/24/2016 [facility] Component Thawed 8:18 PM ORGANIZATIONAL DEVELOPMENT CONSULTANT [facility] WEST BANK Division 00 12/24/2016 [facility] Number 8:18 PM ORGANIZATIONAL DEVELOPMENT CONSULTANT [facility] BANK Status of Released to 12/24/2016 [facility] Unit care unit 11:58 PM ORGANIZATIONAL DEVELOPMENT CONSULTANT [facility] Blood Product [id number] 12/24/2016 [facility] Code 8:18 PM ORGANIZATIONAL DEVELOPMENT CONSULTANT [facility] BANK Unit Status [facility] Specimen Anatomical Collection Method Collection Time Receive d Time (Source) Location / / Volume Laterality 12/24/2016 7:25 PM 7 7:30 ORGANIZATIONAL DEVELOPMENT CONSULTANT PM ORGANIZATIONAL DEVELOPMENT CONSULTANT Nora Leyva MD LABORATORY Performing Organization Address City/[facility]/ZIP Code Phon e Number [facility] [address] [place] [id number] [place] [address] Blood component (12/24/2016 7:25 PM ORGANIZATIONAL DEVELOPMENT CONSULTANT) [employer] Method Time Signature Unit Number [id number] 12/24/2016 [facility] 3 8:18 PM ORGANIZATIONAL DEVELOPMENT CONSULTANT [facility] B[facility] Blood Plasma, 12/24/2016 [facility] Component Thawed 8:18 PM ORGANIZATIONAL DEVELOPMENT CONSULTANT [facility] BANK Division 00 12/24/2016 [facility] Number 8:18 PM ORGANIZATIONAL DEVELOPMENT CONSULTANT [facility] BANK Status of Released to 12/24/2016 [facility] Unit care unit 11:58 PM ORGANIZATIONAL DEVELOPMENT CONSULTANT [facility] Blood Product [id number] 12/24/2016 [facility] Code 8:18 PM ORGANIZATIONAL DEVELOPMENT CONSULTANT [facility] BANK Unit Status [facility] Specimen Anatomical Collection Method Collection Time Receive d Time (Source) Location / / Volume Laterality 12/24/2016 7:25 PM 7 7:30 ORGANIZATIONAL DEVELOPMENT CONSULTANT PM ORGANIZATIONAL DEVELOPMENT CONSULTANT Nora Leyva MD LABORATORY Performing Organization Address City/State/ZIP Code Phon e Number [facility] [address] [place] [id number] [place] [address] Blood component (12/24/2016 7:25 PM ORGANIZATIONAL DEVELOPMENT CONSULTANT) Fanzter Method Time Signature Unit Number [id number] 12/24/2016 [facility] 9 8:18 PM ORGANIZATIONAL DEVELOPMENT CONSULTANT [facility] BANK Blood Plasma, 12/24/2016 [facility] Component Thawed 8:18 PM ORGANIZATIONAL DEVELOPMENT CONSULTANT [facility] BANK Division 00 12/24/2016 [facility] Number 8:18 PM [facility] Status of Released to 12/24/2016 [facility] Unit care unit 11:58 PM [facility] Blood Product [id number] 12/24/2016 [facility] Code 8:18 PM [facility] Unit Status [facility] Specimen Anatomical Collection Method Collection Time Receive d Time (Source) Location / / Volume Laterality 12/24/2016 7:25 PM 7 7:30 ORGANIZATIONAL DEVELOPMENT CONSULTANT PM ORGANIZATIONAL DEVELOPMENT CONSULTANT Nora Leyva MD LABORATORY Performing Organization Address City/[facility]/ZIP Code Phon e Number [facility] [address] [place] [address] [address] [facility] Plasma prepare order unit (12/24/2016 7:25 PM ORGANIZATIONAL DEVELOPMENT CONSULTANT) P athologist Signature Blood Plasma 12/24/2016 [facility] Component Type 7:31 PM [facility] Units Ordered 8 12/24/2016 [facility] 10:10 PM [facility] Specimen Anatomical Collection Method Collection Time Receive d Time (Source) Location / / Volume Laterality 12/24/2016 7:25 PM 7 7:30 ORGANIZATIONAL DEVELOPMENT CONSULTANT PM ORGANIZATIONAL DEVELOPMENT CONSULTANT Nora Leyva MD BLOOD BANK PRODUCT ORDERABLE S Performing Organization Address City/State/ZIP Code Phon e Number [address] [address] [facility] (ABNORMAL) CBC with platelets differential (12/24/2016 7:06 PM ORGANIZATIONAL DEVELOPMENT CONSULTANT) Patholo gist Method Time Signature WBC 10.4 4.0 - 12/24/2016 [facility] 11.0 7:11 PM [facility] 10e9/L [facility] RBC Count 2.99 (L) 3.8 - 5.2 12/24/2016 [facility] 10e12/L 7:11 PM [facility] Hemoglobin 9.0 (L) 11.7 - 12/24/2016 [facility] 15.7 g/dL 7:11 PM [facility] Hematocrit 28.5 (L) 35.0 - 12/24/2016 [facility] 47.0 % 7:11 PM [facility] MCV 95 78 - 100 12/24/2016 [facility] fl 7:11 PM [facility] MCH 30.1 26.5 - 12/24/2016 [facility] 33.0 pg 7:11 PM [facility] MCHC 31.6 31.5 - 12/24/2016 [facility] 36.5 g/dL 7:11 PM [facility] RDW 16.1 (H) 10.0 - 12/24/2016 [facility] 15.0 % 7:11 PM [facility] Platelet Count 256 150 - 450 12/24/2016 [facility] 10e9/L 7:11 PM [facility] Diff Method Automated 12/24/2016 [facility] Method 7:11 PM [facility] % Neutrophils 69.4 % 12/24/2016 [facility] 7:11 PM [facility] % Lymphocytes 21.5 % 12/24/2016 [facility] 7:11 PM [facility] % Monocytes 5.7 % 12/24/2016 [facility] 7:11 PM [facility] % Eosinophils 2.9 % 12/24/2016 [facility] 7:11 PM [facility] % Basophils 0.1 % 12/24/2016 [facility] 7:11 PM [facility] % Immature 0.4 % 12/24/2016 [facility] Granulocytes 7:11 PM [facility] Nucleated RBCs 0 0 /100 12/24/2016 [facility] 7:11 PM [facility] Absolute 7.2 1.6 - 8.3 12/24/2016 [facility] Neutrophil 10e9/L 7:11 PM [facility] Absolute 2.2 0.8 - 5.3 12/24/2016 [facility] Lymphocytes 10e9/L 7:11 PM [facility] Absolute 0.6 0.0 - 1.3 12/24/2016 [facility] Monocytes 10e9/L 7:11 PM [facility] Absolute 0.3 0.0 - 0.7 12/24/2016 [facility] Eosinophils 10e9/L 7:11 PM [facility] Absolute 0.0 0.0 - 0.2 12/24/2016 [facility] Basophils 10e9/L 7:11 PM ORGANIZATIONAL DEVELOPMENT CONSULTANT [facility] Abs Immature 0.0 0 - 0.4 12/24/2016 [facility] Granulocytes 10e9/L 7:11 PM ORGANIZATIONAL DEVELOPMENT CONSULTANT [facility] Absolute 0.0 12/24/2016 [facility] Nucleated RBC 7:11 PM [facility] Specimen Anatomical Collection Method Collection Time Receive d Time (Source) Location / / Volume Laterality Blood specimen 12/24/2016 7:06 PM 017 7:07 (specimen) ORGANIZATIONAL DEVELOPMENT CONSULTANT PM ORGANIZATIONAL DEVELOPMENT CONSULTANT Kayla Davidson MD LAB - BLOOD ORDERABLES Performing Organization Address City/State/ZIP Code Phon e Number [facility] [address] [place] [address] [facility] Urine Culture Aerobic Bacterial (12/24/2016 7:50 AM ORGANIZATIONAL DEVELOPMENT CONSULTANT) Component Value Ref Test Analysis Performed At Patholo gist Range Method Time Signature Specimen Midstream Urine INFECTIOUS Description DISEASE DIAGNOSTIC LABORATORY Special Specimen received 12/24/2016 [place] [facility] in preservative 11:03 AM [facility] Culture Micro <10,000 colonies/mL 12/25/2016 INFEC TIOUS mixed urogenital evelina 7:35 AM ORGANIZATIONAL DEVELOPMENT CONSULTANT [facility] Susceptibility testing not routinely done DIAGNOSTIC LABORATORY Specimen (Source) Anatomical Collection Method Collection Time Re ceived Time Location / / Volume Laterality Examination of 12/24/2016 7:50 12/24/2016 8:46 midstream urine AM ORGANIZATIONAL DEVELOPMENT CONSULTANT AM ORGANIZATIONAL DEVELOPMENT CONSULTANT specimen (procedure) Nora Leyva MD LAB - MICRO GENERAL ORDERABL ES Performing Organization Address City/State/ZIP Code Phon e Number INFECTIOUS DISEASES [address] [place] [address] DIAGNOSTIC LABORATORY, [facility] INFECTIOUS DISEASE [address] [place] [address], [facility] DIAGNOSTIC LABORATORY [phone] [place] [address] (ABNORMAL) UA with Microscopic reflex to Culture (12/24/2016 7:50 AM ORGANIZATIONAL DEVELOPMENT CONSULTANT) Patholo gist Method Time Signature Color Urine Yellow 12/24/2016 [facility] 8:35 AM [facility] Appearance Urine Clear 12/24/2016 [facility]ITY O F 8:35 AM [facility] Glucose Urine Negative NEG^Negat 12/24/2016 [facility] [place] mg/dL 8:35 AM [facility] Bilirubin Urine Negative NEG^Negat 12/24/2016 [facility] [place] 8:35 AM [facility] Ketones Urine Negative NEG^Negat 12/24/2016 [facility] [place] mg/dL 8:35 AM [facility] Specific [place] 1.013 1.003 - 12/24/2016 [facility]ITY O F Urine 1.035 8:35 AM [facility] Blood Urine Moderate (A) NEG^Negat 12/24/2016 [facility] [place] 8:35 AM [facility] pH Urine 6.5 5.0 - 7.0 12/24/2016 [facility] pH 8:35 AM [facility] Protein Albumin Negative NEG^Negat 12/24/2016 [facility] Urine [place] mg/dL 8:35 AM [facility] Urobilinogen Normal 0.0 - 2.0 12/24/2016 [facility] mg/dL mg/dL 8:35 AM [facility] Nitrite Urine Negative NEG^Negat 12/24/2016 [facility] [place] 8:35 AM [facility] Leukocyte Large (A) NEG^Negat 12/24/2016 [facility] Esterase Urine paula 8:35 AM [facility] Source Midstream 12/24/2016 [facility] Urine 8:06 AM [facility] WBC Urine 24 (H) 0 - 2 12/24/2016 [facility] /HPF 8:37 AM [facility] RBC Urine 34 (H) 0 - 2 12/24/2016 [facility] /HPF 8:37 AM [facility] Bacteria Urine Few (A) NEG^Negat 12/24/2016 [facility] [place] /HPF 8:37 AM [facility] Squamous 2 (H) 0 - 1 12/24/2016 [facility] Epithelial /HPF /HPF 8:37 AM [facility] Transitional Epi <1 0 - 1 12/24/2016 UN[facility]ITY O F /HPF 8:37 AM [facility] Specimen (Source) Anatomical Collection Method Collection Time Re ceived Time Location / / Volume Laterality Examination of URINE SPECIMEN 12/24/2016 7:50 12/25/19 17 8:05 midstream urine OBTAINED BY CLEAN AM ORGANIZATIONAL DEVELOPMENT CONSULTANT AM ORGANIZATIONAL DEVELOPMENT CONSULTANT specimen CATCH PROCEDURE / (procedure) Unknown Petrona Barone DO LAB - URINE ORDERABLES Performing Organization Address City/[facility]/ZIP Code Phon e Number [address] [address] [facility] (ABNORMAL) Wet prep (12/23/2016 11:53 PM ORGANIZATIONAL DEVELOPMENT CONSULTANT) Component Value Ref Test Analysis Performed At [facility] Range Method Time Signature Specimen Vagina [facility] Description [facility] Wet Prep No motile 12/24/2016 [facility] Trichomonas 12:21 AM MD MEDICAL seen [facility] Wet Prep Rare 12/24/2016 [facility] Yeast seen 12:21 AM [facility] (A) [facility] Wet Prep Moderate 12/24/2016 [facility] PMNs seen 12:21 AM [facility] Wet Prep No clue cells 12/24/2016 [facility] seen 12:21 AM [facility] Specimen Anatomical Collection Method Collection Time Receive d Time (Source) Location / / Volume Laterality Specimen from 12/23/2016 11:53 12/24/2016 vagina PM ORGANIZATIONAL DEVELOPMENT CONSULTANT 12:10 AM ORGANIZATIONAL DEVELOPMENT CONSULTANT (specimen) Petrona Barone DO LAB - MICRO GENERAL ORDERABL ES Performing Organization Address [facility]/ZIP Code Phon e Number [address] [address] [facility] Maternal BPP Single (12/23/2016 8:37 AM ORGANIZATIONAL DEVELOPMENT CONSULTANT) Anatomical Region Laterality Modality Ultrasound Specimen (Source) Anatomical Collection Method Collection Time Re ceived Time Location / / Volume Laterality 12/23/2016 8:05 AM ORGANIZATIONAL DEVELOPMENT CONSULTANT Impressions 12/23/2016 11:10 AM ORGANIZATIONAL DEVELOPMENT CONSULTANT IMPRESSION 1) Intrauterine at 29 3/7 week s gestational age. 2) The BPP is reassuring. 3) The amniotic fluid volume low consist ent with known PPROM. 4) There is a complete posterior/lateral placenta previa. Narrative 12/23/2016 11:10 AM ORGANIZATIONAL DEVELOPMENT CONSULTANT BPP Pat. Name: DEANN KING Study Date: 8:05am Pat. NO: [id number] Referring ??MD: CHRIST LOZADA Site: [facility] Field Spec: Jay Lu : 1980 Age: 36 INDICATION Premature Rupture of Membranes ( PPROM) Complete previa. METHOD [facility] ANTEPARTUM inpatient exam, Transabd ominal ultrasound examination. [...] Pat. Name:Elizabeth KING Date:12/23 8:05am Pat. NO: [id number] MD:CHRIST BHAT ON [facility]Yesenia [facility] RDMS :1980Age:36 INDICATION Premature Rupture of Membranes ( PPROM) Complete previa. METHOD [facility] ANTEPARTUM inpatient exam, Transabd ominal ultrasound examination. [...] on today's cristian noriega with the patient. Continue inpatient management due [...] complete posterior/lateral placenta previa. [facility]ash[facility] Blood component (12/23/2016 6:54 AM ORGANIZATIONAL DEVELOPMENT CONSULTANT) Fanzter Method Time Signature Unit Number [id number] 12/24/2016 [facility] 9:49 PM ORGANIZATIONAL DEVELOPMENT CONSULTANT [facility] Blood Red Blood 12/24/2016 [facility] Component Cells 9:49 PM ORGANIZATIONAL DEVELOPMENT CONSULTANT [facility] BANK Division 00 12/24/2016 [facility] Number 9:49 PM [facility] Status of Released to 12/24/2016 [facility] Unit care unit 11:58 PM [facility] Blood Product [id number] 12/24/2016 [facility] Code 9:49 PM [facility] Unit Status [facility] Specimen Anatomical Collection Method Collection Time Receive d Time (Source) Location / / Volume Laterality 12/23/2016 6:54 AM 7 6:55 ORGANIZATIONAL DEVELOPMENT CONSULTANT AM ORGANIZATIONAL DEVELOPMENT CONSULTANT [facility] Performing Organization Address City/State/ZIP Code Phon e Number [facility] [address] [place] [address] [address] [facility] Blood component (12/23/2016 6:54 AM ORGANIZATIONAL DEVELOPMENT CONSULTANT) Fanzter Method Time Signature Unit Number [id number] 12/24/2016 [facility] 9:49 PM [facility] Blood Red Blood 12/24/2016 [facility] Component Cells 9:49 PM ORGANIZATIONAL DEVELOPMENT CONSULTANT [facility] Leukocyte [facility] Reduced BANK Division 00 12/24/2016 [facility] Number 9:49 PM ORGANIZATIONAL DEVELOPMENT CONSULTANT [facility] B[facility] Status of No longer 12/24/2016 [facility] Unit available 11:50 PM ORGANIZATIONAL DEVELOPMENT CONSULTANT [facility] 12/24/2016 [facility] [place] [address] BANK Blood Product [id number] 12/24/2016 [facility] Code 9:49 PM ORGANIZATIONAL DEVELOPMENT CONSULTANT [facility] B[facility] Unit Status [facility] Specimen Anatomical Collection Method Collection Time Receive d Time (Source) Location / / Volume Laterality 12/23/2016 6:54 AM 7 6:55 ORGANIZATIONAL DEVELOPMENT CONSULTANT AM ORGANIZATIONAL DEVELOPMENT CONSULTANT Nora Mohamud LABORATORY Performing Organization Address City/State/ZIP Code Phon e Number [address] [address] [facility] Blood component (12/23/2016 6:54 AM ORGANIZATIONAL DEVELOPMENT CONSULTANT) [facility] AltaSens Method Time Signature Unit Number [id number] 12/24/2016 [facility] 9:49 PM ORGANIZATIONAL DEVELOPMENT CONSULTANT [facility] BANK Blood Red Blood 12/24/2016 [facility] OF Component Cells 9:49 PM ORGANIZATIONAL DEVELOPMENT CONSULTANT [facility] Leukocyte [facility] Reduced BANK Division 00 12/24/2016 [facility] Number 9:49 PM [facility] BANK Status of Released to 12/24/2016 [facility] OF Unit care unit 11:58 PM [facility] Blood Product [id number] 12/24/2016 [facility] Code 9:49 PM [facility] BANK Unit Status [facility] Specimen Anatomical Collection Method Collection Time Receive d Time (Source) Location / / Volume Laterality 12/23/2016 6:54 AM 7 6:55 ORGANIZATIONAL DEVELOPMENT CONSULTANT AM ORGANIZATIONAL DEVELOPMENT CONSULTANT Nora Mohamud LAB - BLOOD BANK PRODUCT ORD ER Performing Organization Address City/State/ZIP Code Phon e Number [facility] [address] [place] [address] [address] [facility] Blood component (12/23/2016 6:54 AM ORGANIZATIONAL DEVELOPMENT CONSULTANT) [facility] Al[employer]ens Method Time Signature Unit Number [id number] 12/24/2016 [facility] OF 9:49 PM [facility] BANK Blood Red Blood 12/24/2016 [facility] OF Component Cells 9:49 PM ORGANIZATIONAL DEVELOPMENT CONSULTANT [facility] Leukocyte [facility] Reduced BANK Division 00 12/24/2016 [facility] Number 9:49 PM ORGANIZATIONAL DEVELOPMENT CONSULTANT [facility] BANK Status of Released to 12/24/2016 [facility] OF Unit care unit 11:58 PM ORGANIZATIONAL DEVELOPMENT CONSULTANT [facility] Blood Product [id number] 12/24/2016 [facility] Code 9:49 PM ORGANIZATIONAL DEVELOPMENT CONSULTANT [facility] B[facility] Unit Status [facility] Specimen Anatomical Collection Method Collection Time Receive d Time (Source) Location / / Volume Laterality 12/23/2016 6:54 AM 7 6:55 ORGANIZATIONAL DEVELOPMENT CONSULTANT AM ORGANIZATIONAL DEVELOPMENT CONSULTANT Nora Appknox LAB - BLOOD BANK PRODUCT ORD ER Performing Organization Address City/[facility] Code Phon e Number [address] [address] [facility] Blood component (12/23/2016 6:54 AM ORGANIZATIONAL DEVELOPMENT CONSULTANT) Fanzter Method Time Signature Unit Number [id number] 12/24/2016 [facility] 8:38 PM ORGANIZATIONAL DEVELOPMENT CONSULTANT [facility] BANK Blood Red Blood 12/24/2016 [facility] OF Component Cells 8:38 PM ORGANIZATIONAL DEVELOPMENT CONSULTANT [facility] Leukocyte [facility] Reduced BANK Division 00 12/24/2016 [facility] Number 8:38 PM [facility] BANK Status of Released to 12/24/2016 [facility] OF Unit care unit 11:58 PM [facility] Blood Product [id number] 12/24/2016 [facility] Code 8:38 PM [facility] B[facility] Unit Status [facility] Specimen Anatomical Collection Method Collection Time Receive d Time (Source) Location / / Volume Laterality 12/23/2016 6:54 AM 7 6:55 ORGANIZATIONAL DEVELOPMENT CONSULTANT AM ORGANIZATIONAL DEVELOPMENT CONSULTANT Nora [employer]knox LAB - BLOOD BANK PRODUCT ORD ER Performing Organization Address City/[facility] Code Phon e Number [address] [address] [place] BANK Blood component (12/23/2016 6:54 AM ORGANIZATIONAL DEVELOPMENT CONSULTANT) Fanzter Method Time Signature Unit Number [id number] 12/24/2016 [facility]ITY OF 8:38 PM ORGANIZATIONAL DEVELOPMENT CONSULTANT [facility] B[facility] Blood Red Blood 12/24/2016 [facility] OF Component Cells 8:38 PM ORGANIZATIONAL DEVELOPMENT CONSULTANT [facility] Leukocyte [facility] Reduced BANK Division 00 12/24/2016 [facility] Number 8:38 PM ORGANIZATIONAL DEVELOPMENT CONSULTANT [facility] BANK Status of Released to 12/24/2016 [facility] OF Unit care unit 11:58 PM ORGANIZATIONAL DEVELOPMENT CONSULTANT [facility] Blood Product [id number] 12/24/2016 [facility] OF Code 8:38 PM ORGANIZATIONAL DEVELOPMENT CONSULTANT [facility] B[facility] Unit Status [facility] Specimen Anatomical Collection Method Collection Time Receive d Time (Source) Location / / Volume Laterality 12/23/2016 6:54 AM 7 6:55 ORGANIZATIONAL DEVELOPMENT CONSULTANT AM ORGANIZATIONAL DEVELOPMENT CONSULTANT Nora VinceLinchpin LAB - BLOOD BANK PRODUCT ORD ER Performing Organization Address City/[facility] Code Phon e Number [facility] [address] [place], [place] [id number] [place] [address] [facility] Blood component (12/23/2016 6:54 AM ORGANIZATIONAL DEVELOPMENT CONSULTANT) [facility] Method Time Signature Unit Number [id number] 12/24/2016 [facility]ITY OF 8:38 PM ORGANIZATIONAL DEVELOPMENT CONSULTANT [facility] BANK Blood Red Blood 12/24/2016 [facility]ITY OF Component Cells 8:38 PM ORGANIZATIONAL DEVELOPMENT CONSULTANT [facility] WEST Reduced BANK Division 00 12/24/2016 [facility] OF Number 8:38 PM ORGANIZATIONAL DEVELOPMENT CONSULTANT [facility] BANK Status of Released to 12/24/2016 [facility] OF Unit care unit 11:58 PM ORGANIZATIONAL DEVELOPMENT CONSULTANT [facility] Blood Product [id number] 12/24/2016 [facility] OF Code 8:38 PM ORGANIZATIONAL DEVELOPMENT CONSULTANT [facility] BANK Unit Status [facility] Specimen Anatomical Collection Method Collection Time Receive d Time (Source) Location / / Volume Laterality 12/23/2016 6:54 AM 7 6:55 ORGANIZATIONAL DEVELOPMENT CONSULTANT AM ORGANIZATIONAL DEVELOPMENT CONSULTANT Nora LinLinchpin LABORATORY Performing Organization Address City/[facility] Phon e Number [facility] [address] [place], [place] [address] [place] [address] [facility] Blood component (12/23/2016 6:54 AM ORGANIZATIONAL DEVELOPMENT CONSULTANT) [facility] gist Method Time Signature Unit Number [id number] 12/24/2016 [facility]ITY OF 8:38 PM ORGANIZATIONAL DEVELOPMENT CONSULTANT [facility] BANK Blood Red Blood 12/24/2016 [facility] OF Component Cells 8:38 PM ORGANIZATIONAL DEVELOPMENT CONSULTANT [facility] Leukocyte [facility] Reduced BANK Division 00 12/24/2016 [facility] Number 8:38 PM ORGANIZATIONAL DEVELOPMENT CONSULTANT [facility] BANK Status of Released to 12/24/2016 [facility] OF Unit care unit 11:58 PM ORGANIZATIONAL DEVELOPMENT CONSULTANT [facility] [place] Blood Product [id number] 12/24/2016 [facility] OF Code 8:38 PM ORGANIZATIONAL DEVELOPMENT CONSULTANT [facility] BANK Unit Status [facility] Specimen Anatomical Collection Method Collection Time Receive d Time (Source) Location / / Volume Laterality 12/23/2016 6:54 AM 7 6:55 ORGANIZATIONAL DEVELOPMENT CONSULTANT AM ORGANIZATIONAL DEVELOPMENT CONSULTANT [employer] LABORATORY Performing Organization Address City/[facility] Code Phon e Number [place] [phone] [facility] Blood component (12/23/2016 6:54 AM ORGANIZATIONAL DEVELOPMENT CONSULTANT) [facility] Al[employer] Method Time Signature Unit Number [id number] 12/24/2016 [facility]ITY OF 7:32 PM ORGANIZATIONAL DEVELOPMENT CONSULTANT [facility] BANK Blood Red Blood 12/24/2016 [facility]ITY OF Component Cells 7:32 PM ORGANIZATIONAL DEVELOPMENT CONSULTANT [facility] WEST Reduced BANK Division 00 12/24/2016 [facility] OF Number 7:32 PM ORGANIZATIONAL DEVELOPMENT CONSULTANT [facility] BANK Status of Released to 12/24/2016 [facility] OF Unit care unit 11:58 PM ORGANIZATIONAL DEVELOPMENT CONSULTANT [facility] Blood Product [id number] 12/24/2016 [facility]ITY OF Code 7:32 PM ORGANIZATIONAL DEVELOPMENT CONSULTANT [facility] B[facility] Unit Status [facility] Specimen Anatomical Collection Method Collection Time Receive d Time (Source) Location / / Volume Laterality 12/23/2016 6:54 AM 7 6:55 ORGANIZATIONAL DEVELOPMENT CONSULTANT AM ORGANIZATIONAL DEVELOPMENT CONSULTANT [employer] LABORATORY Performing Organization Address City/[facility] Code Phon e Number [facility] [address] [place] [address] [facility] Blood component (12/23/2016 6:54 AM ORGANIZATIONAL DEVELOPMENT CONSULTANT) Patholo gist Method Time Signature Unit Number [id number] 12/24/2016 [facility]ITY OF 7:32 PM ORGANIZATIONAL DEVELOPMENT CONSULTANT [facility] B[facility] Blood Red Blood 12/24/2016 [facility]ITY OF Component Cells 7:32 PM ORGANIZATIONAL DEVELOPMENT CONSULTANT [facility] Leukocyte [facility] Reduced BANK Division 00 12/24/2016 [facility] OF Number 7:32 PM ORGANIZATIONAL DEVELOPMENT CONSULTANT [facility] BANK Status of Released to 12/24/2016 [facility] OF Unit care unit 11:58 PM ORGANIZATIONAL DEVELOPMENT CONSULTANT [facility] Blood Product [id number] 12/24/2016 UN[facility]ERSITY OF Code 7:32 PM ORGANIZATIONAL DEVELOPMENT CONSULTANT [facility] B[facility] Unit Status [facility] Specimen Anatomical Collection Method Collection Time Receive d Time (Source) Location / / Volume Laterality 12/23/2016 6:54 AM 7 6:55 ORGANIZATIONAL DEVELOPMENT CONSULTANT AM ORGANIZATIONAL DEVELOPMENT CONSULTANT [employer] LABORATORY Performing Organization Address City/[facility]/ZIP Code Phon e Number [facility] [address] [place], [place] [id number] [place] [id number] [place] [address] Blood component (12/23/2016 6:54 AM ORGANIZATIONAL DEVELOPMENT CONSULTANT) [employer] [facility] gist Method Time Signature Unit Number [id number] 12/24/2016 UNIVERSITY OF 7:05 PM ORGANIZATIONAL DEVELOPMENT CONSULTANT [facility] BANK Blood Red Blood 12/24/2016 UNIVERSITY OF Component Cells 7:05 PM ORGANIZATIONAL DEVELOPMENT CONSULTANT [facility] Leukocyte SPIRO WEST Reduced BANK Division 00 12/24/2016 UNIVERSITY OF Number 7:05 PM [facility] BANK Status of Released to 12/24/2016 UNIVERSITY OF Unit care unit 11:58 PM [facility] Blood Product [id number] 12/24/2016 UNIVERSITY OF Code 7:05 PM ORGANIZATIONAL DEVELOPMENT CONSULTANT [facility] BANK Unit Status [facility] Specimen Anatomical Collection Method Collection Time Receive d Time (Source) Location / / Volume Laterality 12/23/2016 6:54 AM 7 6:55 ORGANIZATIONAL DEVELOPMENT CONSULTANT AM ORGANIZATIONAL DEVELOPMENT CONSULTANT [employer] LABORATORY Performing Organization Address City/[facility]/ZIP Code Phon e Number [facility] [address] [place] [address] [place] [id number] [facility] Blood component (12/23/2016 6:54 AM ORGANIZATIONAL DEVELOPMENT CONSULTANT) [employer] Method Time Signature Unit Number [id number] 12/24/2016 UNIVERSITY OF 7:05 PM ORGANIZATIONAL DEVELOPMENT CONSULTANT [facility] BANK Blood Red Blood 12/24/2016 UNIVERSITY OF Component Cells 7:05 PM [facility] BANK Division 00 12/24/2016 UNIVERSITY OF Number 7:05 PM [facility] Status of Released to 12/24/2016 UNIVERSITY OF Unit care unit 11:58 PM [facility] Blood Product [id number] 12/24/2016 UNIVERSITY OF Code 7:05 PM [facility] Unit Status [facility] Specimen Anatomical Collection Method Collection Time Receive d Time (Source) Location / / Volume Laterality 12/23/2016 6:54 AM 7 6:55 ORGANIZATIONAL DEVELOPMENT CONSULTANT AM ORGANIZATIONAL DEVELOPMENT CONSULTANT [employer] LABORATORY Performing Organization Address City/State/ZIP Code Phon e Number [facility] [address] [place], [place] [id number] [place] [address] [facility] ABO/Rh type and screen (12/23/2016 6:54 AM ORGANIZATIONAL DEVELOPMENT CONSULTANT) [employer] [facility] [employer] Method Time Signature Units Ordered 12 12/24/2016 UNIVERSITY 9:49 PM [facility] ABO B 12/23/2016 UNIVERSITY OF 7:32 AM [facility] RH(D) Pos [facility] Antibody Neg 12/23/2016 UNIVERSITY OF Screen 7:32 AM [facility] Test Valid University 12/23/2016 UNIVERSITY OF [facility] 7:01 AM ORGANIZATIONAL DEVELOPMENT CONSULTANT [facility] BANK w Hospital Specimen 12/26/2016 12/23/2016 UNIVERSITY OF Expires 7:01 AM [facility] Crossmatch Red Blood 12/24/2016 UNIVERSITY OF Cells 7:05 PM [facility] Specimen Anatomical Collection Method Collection Time Receive d Time (Source) Location / / Volume Laterality Blood specimen 12/23/2016 6:54 AM 017 6:55 (specimen) ORGANIZATIONAL DEVELOPMENT CONSULTANT AM ORGANIZATIONAL DEVELOPMENT CONSULTANT Nora Mohamud LAB - BLOOD BANK TEST ORDER Performing Organization Address City/[facility] Phon e Number [address] [address] [facility] ABO/Rh type and screen (12/20/2016 10:48 AM CDT) [facility] Method Time Signature ABO B 12/20/2016 UNIVERSITY 11:31 AM CDT [facility] RH(D) Pos [facility] Antibody Neg 12/20/2016 UNIVERSITY OF Screen 11:31 AM CDT [facility] Test Valid University 12/20/2016 [facility]ITY OF [place] 11:00 AM CDT [facility] BANK w Hospital Specimen 12/23/2016 12/20/2016 UNIVERSITY OF Expires 11:00 AM CDT [facility] Specimen Anatomical Collection Method Collection Time Receive d Time (Source) Location / / Volume Laterality Blood specimen 12/20/2016 10:48 7 (specimen) AM CDT 10:49 AM CDT Lashawn Patel MD LAB - BLOOD BANK TEST ORDER Performing Organization Address [facility] Code Phon e Number [place] [id number] [place] [address] [facility] Maternal BPP Single (12/19/2016 8:46 AM CDT) Anatomical Region Laterality Modality Ultrasound Specimen (Source) Anatomical Collection Method Collection Time Re ceived Time Location / / Volume Laterality 12/19/2016 8:16 AM CDT Impressions 12/25/2016 9:13 AM ORGANIZATIONAL DEVELOPMENT CONSULTANT IMPRESSION 1) Intrauterine at 28 6/7 week s gestational age. 2) The BPP is reassuring. 3) Oligohydramnios is seen consistent wi th know PPROM. 4) A complete posterior placenta previa is again seen. Narrative 12/25/2016 9:13 AM ORGANIZATIONAL DEVELOPMENT CONSULTANT BPP Pat. Name: DEANN KING Study Date: 8:16am Pat. NO: [id number] Referring ??MD: CHRIST LOZADA Site: [facility] Field Spec: Jay Lu : 1980 Age: 36 INDICATION Premature Rupture of Membranes ( PPROM) Complete previa. METHOD [facility] ANTEPARTUM inpatient exam, Transabd ominal ultrasound examination. [...] RECOMMENDATION We discussed the findings on today's [facility] rasound with the patient. [facility] BPP. Continue inpatient management of PPROM. [...] Pat. Name:Elizabeth KING Date:12/19 8:16am Pat. NO: [id number] :CHRIST BHAT ON [facility]Yesenia Sen RDMS :1980Age:36 INDICATION Premature Rupture of Membranes ( PPROM) Complete previa. METHOD [facility] ANTEPARTUM inpatient exam, Transabd ominal ultrasound examination. [...] on today's cristian noriega with the patient. Continue surveillance with twi [...] previa is again seen. Erum Manzanares MD [facility] US ORDERABLES ABO/Rh type and screen (12/17/2016 6:54 AM CDT) [facility] Method Time Signature ABO B 12/17/2016 UNIVERSITY OF 7:49 AM CDT [facility] RH(D) Pos [facility] Antibody Neg 12/17/2016 UNIVERSITY OF Screen 7:49 AM CDT [facility] Test Valid [facility] 12/17/2016 UN[facility]ERSITY OF [place] [facility] [place] 7:18 AM CDT [facility] BANK w Hospital Specimen 12/20/2016 12/17/2016 UNIVERSITY OF Expires 7:18 AM CDT [facility] Specimen Anatomical Collection Method Collection Time Receive d Time (Source) Location / / Volume Laterality Blood specimen 12/17/2016 6:54 AM 017 6:56 (specimen) CDT AM CDT [facility] LAB - BLOOD BANK TEST ORDER Performing Organization Address City/State/ZIP Code Phon e Number [facility] [address] [place] [address] [facility] Maternal US OB Limited Single/Multiple (12/16/2016 9:24 [...] DEANN KING Study Date: 8:43am Pat. NO: [id number] Referring ??: CHRIST LOZADA Site: [facility] Field Spec: Jay Lu : 1980 Age: 36 INDICATION Premature Rupture of Membranes ( PPROM) Complete previa. METHOD [facility] ANTEPARTUM inpatient exam, Transabd ominal ultrasound examination. [...] rasound with the patient. Continue [facility] weekly BPP. Continue inpatient management until delivery. [...] Pat. Name:Elizabeth KING Date:12/16 8:43am Pat. NO: [id number] MD:CHRIST BHAT ON [facility]:Yesenia Sen RDMS :1980Age:36 INDICATION Premature Rupture of Membranes ( PPROM) Complete previa. METHOD [facility] ANTEPARTUM inpatient exam, Transabd ominal ultrasound examination. [...] on today's cristian noriega with the patient. Continue surveillance with twi [...] stent with known PPROM. Erum Manzanares MD [facility] ORDERABLES ABO/Rh type and screen (12/14/2016 12:28 AM CDT) [facility] Method Time Signature ABO B 12/14/2016 UNIVERSITY OF 4:01 AM CDT [facility] RH(D) Pos [facility] Antibody Neg 12/14/2016 UNIVERSITY OF Screen 4:01 AM CDT [facility] Test Valid University 12/14/2016 UN[facility]ITY OF [place] [facility] [place] 1:05 AM CDT [facility] BANK w Hospital Specimen 12/17/2016 12/14/2016 UNIVERSITY OF Expires 1:05 AM CDT [facility] Specimen Anatomical Collection Method Collection Time Receive d Time (Source) Location / / Volume Laterality Blood specimen 12/14/2016 12:28 7 (specimen) AM CDT 12:29 AM CDT Nalini Eli MD LAB - BLOOD BANK TEST ORDER Performing Organization Address City/State/ZIP Code Phon e Number [facility] [address] [place] [address] [facility] Hepatitis B Surface Antibody (12/13/2016 9:42 PM CDT) athologist Signature Hepatitis B 0.21 <8.00 12/16/2016 [facility] m[IU]/mL 11:39 AM CDT [place] [facility] Comment: Nonreactive, No antibody detect ed when the value is less than 8.00 m[IU]/mL. Specimen Anatomical Collection Method Collection Time Receive d Time (Source) Location / / Volume Laterality Blood specimen 12/13/2016 9:42 PM 017 9:43 (specimen) CDT PM CDT Erum Manzanares MD LAB - BLOOD ORDERABLES Performing Organization Address City/[facility]/ZIP Code Phon e Number [address] Hepatitis A Antibody IgG (12/13/2016 9:42 PM CDT) [facility] [employer] Method Time Signature Hepatitis A Nonreactive NR^Nonrea 12/16/2016 UNIVERSITY OF Antibody IgG ctive 11:39 AM CDT [facility] Comment: This assay cannot be used for t he diagnosis of acute HAV infection. Specimen Anatomical Collection Method Collection Time Receive d Time (Source) Location / / Volume Laterality Blood specimen 12/13/2016 9:42 PM 017 9:43 (specimen) CDT PM CDT Erum Manzanares MD LAB - BLOOD ORDERABLES Performing Organization Address City/[facility]/ZIP Code Phon e Number [phone] [place] [address] Hepatitis B core antibody (12/13/2016 9:42 PM CDT) [facility] [employer] Method Time Signature Hepatitis B Nonreactive NR^Nonrea 12/16/2016 UNIVERSITY OF Core Maricruz ctive 11:39 AM CDT [facility] Specimen Anatomical Collection Method Collection Time Receive d Time (Source) Location / / Volume Laterality Blood specimen 12/13/2016 9:42 PM 017 9:43 (specimen) CDT PM CDT Erum Manzanares MD LAB - BLOOD ORDERABLES Performing Organization Address City/[facility]/ZIP Code Phon e Number [address] [address] [facility] MR (12/13/2016 2:33 PM [...] 2. Oligohydramnios. ZARINA THOMAS MD Nora Mohamud [facility] MRI ORDERABLES Maternal US OB Limited Single/Multiple [...] DEANN KING Study Date: 7:48am Pat. NO: [id number] Referring ??: CHRIST LOZADA Site: [facility] Field Spec: Jay Lu : 1980 Age: 36 INDICATION Premature Rupture of Membranes ( PPROM), Complete Previa. METHOD [facility] ANTEPARTUM inpatient exam, Transabd ominal and transvaginal [...] The patient was escorted [facility] at the end of the ultrasound. Please see [employer] for further documentation regarding plan of care. If you have questions regarding today's evaluation or if we can be of further service, please contact the [facility]. anomalies may be present but not detected. Procedure Note CrossNora MD - 12/12/2016For matting of this note might be different from the original. Cx TV Pat. Name:Elizabeth KING Date:12/12 7:48am Pat. NO: [id number] MD:CHRIST BHAT ON [facility]:Yesenia Sen RDMS :1980Age:36 INDICATION Premature Rupture of Membranes ( PPROM), Complete Previa. METHOD [facility] ANTEPARTUM inpatient exam, Transabd ominal and transvaginal [...] The patient was escorted back to [facility] room at the end of the ultrasound. Please see [facility] for further documentation regarding plan of [...] the placental-myometrial interface appears normal. Nora Mohamud [facility] US ORDERABLES ABO/Rh type and screen (12/11/2016 9:05 AM CDT) [facility] Method Time Signature ABO B 12/11/2016 UNIVERSITY 10:14 AM CDT [facility] RH(D) Pos [facility] Antibody Neg 12/11/2016 UNIVERSITY OF Screen 10:14 AM CDT [facility] Test Valid [facility] 12/11/2016 [facility] [facility] 9:21 AM CDT [facility] BANK w Hospital Specimen 12/14/2016 12/11/2016 [facility] 9:21 AM CDT [facility] Specimen Anatomical Collection Method Collection Time Receive d Time (Source) Location / / Volume Laterality Blood specimen 12/11/2016 9:05 AM 017 9:06 (specimen) CDT AM CDT Nalini Eli MD LAB - BLOOD BANK TEST ORDER Performing Organization Address City/State/ZIP Code Phon e Number [facility] [address] [place] [address] [facility] Echocardiogram Complete (12/10/2016 9:05 AM CDT) Anatomical Region Laterality Modality Echocardiography Specimen (Source) Anatomical Collection Method Collection Time Re ceived Time Location / / Volume Laterality 12/10/2016 8:00 AM CDT Narrative 12/10/2016 9:23 AM CDT [id number]^CROSS^NORA^VINCE ?Study ID: [id number] ?[facility] ?[facility] ?[address]. ?[place] [address] ? Echocardiogram __ Name: DEANN KING Study Date: 12/10/2016 08:00 AM ? Patient Location: [facility] Gender: Female ?Patient Class: Inpatient : 1980 ? Age: 36 yrs Ordering Provider: NORA MOHAMUD Performed By: Krys Servin RDCS Reading Physician: Brice Lloyd MD Reason For Study: Other, Please Specify in Comments Data: Number of fetuses: This is a espinoza gestation. Due date: 03/07/2017. Gestational age: 27w4d. Reginaldi very at: [place]. Specific Indication: echocar diogram performed for family [...] the left atriu m. There is laminar fidaq-op-qevu shunting across the foramen ovale. Atrioventricular valves: [...] Procedure Note Brice Lloyd MD - [phone] [id number] [facility]36 [id number]^EFRA^NORA^VINCE Study ID: [id number] [facility] Children[facility] [address] [address] Echocardiogram __ Name: DEANN KING Study Date: 12/10/2016 08:00 AM Patient Location: [id number] Gender: Female Patient Class: Inpatient : 1980 Age: 36 yrs Ordering Provider: NORA MOHAMUD Performed By: Krys Servin RDCS Reading Physician: Brice Lloyd MD Reason For Study: Other, Please Specify in Comments Data: Number of fetuses: This is a espinoza gestation. Due date: 03/07/2017. Gestational age: 27w4d. Deli very at: [place]. Specific Indication: echocar diogram performed for family [...] the left atriu m. There is laminar syfbr-kq-uvwt shunting across the foramen ovale. Atrioventricular valves: [...] Brice Lloyd MD 12/10/2016 09:23 AM Nora Vincezainab Mohamud CV PEDS ECHO ORDERABLES Maternal US [...] DEANN KING Study Date: 9:10am Pat. NO: [id number] Referring ??MD: CHRIST LOZADA Site: [facility] Field Spec: Jay Lu : 1980 Age: 36 INDICATION Premature Rupture of Membranes ( PPROM) Complete previa. METHOD Transabdominal ultrasound examination, [facility] ANTEPARTUM inpatient exam. View: Suboptimal [...] 66.4 ?mm ? 26w 5d ? Hadlock OF ? 87.3 ?mm ? 26w 1d ? Nicolaides HC ?246.7 ?mm ?26w 6d ? Hadlock AC ?225.5 ?mm ?27w 0d ? Hadlock Femur ? 47.1 ?mm ?25w 5d ? Hadlock Humerus ? 42.7 ?mm ? 25w 4d ?Pauly Weight Calculation: EFW ? 943 ? g ? 37% ? Gildardo EFW (lb,oz) ? 2 lb 1 ?oz Calculated by ?Hadlock ([id number]-AW-[id number]-FL) Head / Face / Neck Biometry: Spinner Hydraulic ?3.9 ?mm ? Amniotic Fluid / FHR: [...] Pat. Name:Elizabeth KING Date:12/08 9:10am Pat. NO: [id number] MD:CHRIST BHAT ON [facility]enia [facility] RDMS :1980Age:36 INDICATION Premature Rupture of Membranes ( PPROM) Complete previa. METHOD Transabdominal ultrasound examination, [facility] ANTEPARTUM inpatient exam. View: Suboptimal view: [...] 2 lb 1 oz Calculated by Hadlock (UUS-MU-NQ-FL) Head / Face / Neck Biometry: Spinner Hydraulic 3.9 mm Amniotic Fluid / FHR: AF [...] MARCELLA consistent with PPROM. Rossana Barker MD [facility] US ORDERABLES Wound Culture Aerobic Bacterial (12/07/2016 6:00 PM CDT) [facility] Method Time Signature Specimen Leg Wound [...] Code Phon e Number INFECTIOUS DISEASES [address] [place] [address] DIAGNOSTIC LABORATORY, [facility] INFECTIOUS DISEASE [address] [place] [address], [facility] DIAGNOSTIC LABORATORY Methicillin resistant staph aureus cult (12/07/2016 6:00 PM CDT) Patholo gist Method Time Signature Specimen Wound [facility] EAST BANK Special Specimen 12/07/2016 UNIVERSITY OF Requests collected in 7:06 PM CDT [facility] E[facility] transport BANK (white cap) Culture Micro Canceled, 12/07/2016 UNIVERSITY OF Test credited 8:13 PM CDT [facility] Culture Micro Test 12/07/2016 UNIVERSITY OF reordered as 8:13 PM CDT [facility] correct [facility] Specimen Anatomical Collection Method Collection Time Receive d Time (Source) Location / / Volume Laterality Specimen from 12/07/2016 6:00 PM 12/08/19 17 6:21 wound (specimen) CDT PM CDT Rossana Barker MD LAB - MICRO GENERAL ORDERABL ES Performing Organization Address City/State/ZIP Code Phon e Number [facility] [address] [place] [address] [place] TSH with free T4 reflex (12/07/2016 3:43 PM CDT) P athologist Signature TSH 3.09 0.40 - 4.00 12/09/2016 [facility] mU/L 5:39 PM CDT [facility] Specimen Anatomical Collection Method Collection Time Receive d Time (Source) Location / / Volume Laterality 12/07/2016 3:43 PM 7 3:44 CDT PM CDT Nora Leyva MD LAB - BLOOD ORDERABLES Performing Organization Address City/[facility]/ZIP Code Phon e Number [facility] [address] [place] [address] [facility] Rubella Antibody IgG Quantitative (12/07/2016 3:43 PM CDT) Analysis Performed At Patho logist Time Signature Rubella Antibody 7 IU/mL 12/09/2016 UNIVERSITY O F IgG Quantitative 11:02 AM CDT [facility] Comment: Negative Reference Range: ??Unvaccinated Negative 0-7 IU/mL Vaccinated or previous exposure Positive 10 IU/ml or greater Specimen Anatomical Collection Method Collection Time Receive d Time (Source) Location / / Volume Laterality 12/07/2016 3:43 PM 7 3:44 CDT PM CDT Nora Leyva MD LAB - BLOOD ORDERABLES Performing Organization Address City/State/ZIP Code Phon e Number [facility] [address] [place] [address] [facility] (ABNORMAL) Hepatitis C RNA quantitative (12/07/2016 3:43 PM CDT) [facility] Method Time Signature HCV RNA Quant [id number],413,209 HCVND^HCV 12/09/2016 UN[facility]ERSITY OF IU/ml (A) RNA Not 12:19 PM CDT [facility] EAST [IU]/mL BANK Comment: The LEONARDO AmpliPrep/LEONARDO [...] (H) <1.2 Log IU/mL 12/09/2016 12:19 PM [facility] Qt CDT [facility] BANK Specimen Anatomical Collection Method Collection Time Receive d Time (Source) Location / / Volume Laterality Blood specimen 12/07/2016 3:43 PM 017 3:44 (specimen) CDT PM CDT Nora Leyva MD LAB - BLOOD ORDERABLES Performing Organization Address City/[facility]/ZIP Code Phon e Number [facility] [address] [place] [address] [place] hemoglobin stain Kleihauer (12/07/2016 3:43 PM CDT) [facility] Time Signature Kleihauer-Bet No cells seen 12/07/2016 UNIVE RSITY OF ke Rhogam not required 7:22 PM CDT MD MEDIC AL Patient Rh positive [facility] T Test performed at [employer] BANK Specimen Anatomical Collection Method Collection Time Receive d Time (Source) Location / / Volume Laterality Blood specimen 12/07/2016 3:43 PM 017 3:45 (specimen) CDT PM CDT Nora Leyva MD LAB - BLOOD BANK TEST ORDER Performing Organization Address City/State/ZIP Code Phon e Number [address] [address] [facility] Fibrinogen activity (12/07/2016 3:43 PM CDT) athologist Signature Fibrinogen 362 200 - 420 12/07/2016 [facility] mg/dL 5:44 PM CDT [facility] Specimen Anatomical Collection Method Collection Time Receive d Time (Source) Location / / Volume Laterality Blood specimen 12/07/2016 3:43 PM 017 3:44 (specimen) CDT PM CDT Nora Leyva MD LAB - BLOOD ORDERABLES Performing Organization Address City/[facility]/ZIP Code Phon e Number [address] [address] [facility] Partial thromboplastin time (12/07/2016 3:43 PM CDT) athologist Signature PTT 27 22 - 37 sec 12/07/2016 [facility] 5:44 PM CDT [facility] Specimen Anatomical Collection Method Collection Time Receive d Time (Source) Location / / Volume Laterality Blood specimen 12/07/2016 3:43 PM 017 3:44 (specimen) CDT PM CDT Nora Leyva MD LAB - BLOOD ORDERABLES Performing Organization Address City/[facility]/ZIP Code Phon e Number [address] [address] [facility] INR (12/07/2016 3:43 PM CDT) athologist Signature INR 1.06 0.86 - 1.14 12/07/2016 [facility] 5:44 PM T [facility] Specimen Anatomical Collection Method Collection Time Receive d Time (Source) Location / / Volume Laterality Blood specimen 12/07/2016 3:43 PM 017 3:44 (specimen) CDT PM CDT Nora Leyva MD LAB - BLOOD ORDERABLES Performing Organization Address City/State/ZIP Code Phon e Number [address] [address] [facility] (ABNORMAL) Comprehensive metabolic panel (12/07/2016 3:43 PM CDT) athologist Signature Sodium 141 133 - 144 12/07/2016 UN[facility]ERSITY OF mmol/L 4:08 PM [facility] Potassium 3.4 3.4 - 5.3 12/07/2016 [facility]ITY OF mmol/L 4:08 PM [facility] Chloride 108 94 - 109 12/07/2016 [...] [facility] GFR Estimate >90 >60 12/07/2016 [place] mL/min/1.7 4:[address] Comment: Non GFR Calc GFR Estimate If >90 >60 mL/min/1.7m2 12/07/2016 4:08 P M [facility] Black [facility] Comment: GFR Calc Calcium 8.1 (L) 8.5 - 10.1 12/07/2016 4:08 PM [facility] mg/dL [facility] Bilirubin Total 0.4 0.2 - 1.3 12/07/2016 4:08 PM UNIVE RS[facility] OF MD mg/dL [facility] Albumin 2.5 (L) 3.4 - 5.0 g/dL 12/07/2016 4:08 PM [facility] Protein Total 6.1 (L) 6.8 - 8.8 g/dL 12/07/2016 4:08 PM [facility] Alkaline Phosphatase 69 40 - 150 [...] LAB - BLOOD ORDERABLES Performing Organization Address City/[facility]/ZIP Code Phon e Number [facility] [address] [place] [address] [facility] Urine Culture Aerobic Bacterial (12/07/2016 2:55 PM CDT) Component Value Ref Test Analysis Performed At [facility] gist Range Method Time Signature Specimen Unspecified Urine INFECTIOUS Description DISEASE DIAGNOSTIC LABORATORY Special Specimen received 12/07/2016 [facility]ITY [facility] in preservative 7:19 PM CDT [facility] [...] MICRO GENERAL ORDERABL ES Performing Organization Address City/[facility]/ZIP [facility] Phon e Number INFECTIOUS DISEASES [address] [place] [address] DIAGNOSTIC LABORATORY, [facility] INFECTIOUS DISEASE [address] [place] [address] DIAGNOSTIC LABORAT[address] (ABNORMAL) UA reflex to Microscopic and Culture (12/07/2016 2:55 PM CDT) Patholo gist Method Time Signature Color Urine Yellow 12/07/2016 [facility]ITY OF 3:37 PM CDT [facility] Appearance Urine Clear 12/07/2016 UN[facility]ERSITY O F 3:37 PM CDT [facility] Glucose Urine Negative NEG^Negat 12/07/2016 [facility] OF paula mg/dL 3:37 PM CDT [facility] Bilirubin Urine Negative NEG^Negat 12/07/2016 [facility] OF paula 3:37 PM CDT [facility] Ketones Urine Negative NEG^Negat 12/07/2016 [facility] OF paula mg/dL 3:37 PM [facility] Specific [place] 1.015 1.003 - 12/07/2016 [facility]ERSITY O F Urine 1.035 3:37 PM [facility] Blood Urine Negative NEG^Negat 12/07/2016 [facility] OF paula 3:37 PM [facility] pH Urine 6.5 5.0 - 7.0 12/07/2016 [facility] OF pH 3:37 PM [facility] Protein Albumin 10 (A) NEG^Negat 12/07/2016 [facility] OF Urine paula mg/dL 3:37 PM [facility] Urobilinogen Normal 0.0 - 2.0 12/07/2016 [facility] mg/dL mg/dL 3:37 PM [facility] Nitrite Urine Negative NEG^Negat 12/07/2016 [facility] OF paula 3:37 PM [facility] Leukocyte Moderate (A) NEG^Negat 12/07/2016 [facility] OF Esterase Urine paula 3:37 PM [facility] Source Midstream 12/07/2016 [facility] OF Urine 3:23 PM [facility] RBC Urine 1 0 - 2 12/07/2016 [facility] /HPF 3:[address] [facility] WBC Urine 7 (H) 0 - 2 12/07/2016 [facility] /HPF 3:[address] [facility] Bacteria Urine Few (A) NEG^Negat 12/07/2016 [facility] paula /HPF 3:[address] [facility] Squamous 1 0 - 1 12/07/2016 [facility] Epithelial /HPF /HPF 3:49 PM [facility] Mucous Urine Present (A) NEG^Negat 12/07/2016 [facility] paula /LPF 3:[address] [facility] Specimen (Source) Anatomical Collection Method Collection Time Re ceived Time Location / / Volume Laterality Examination of URINE SPECIMEN 12/07/2016 2:55 12/08/19 17 3:22 midstream urine OBTAINED BY CLEAN PM T PM T specimen CATCH PROCEDURE / (procedure) Unknown Nora Leyva MD LAB - URINE ORDERABLES Performing Organization Address City/State/[facility] Phon e Number U [address] [address] [facility] Drug abuse scrn 7 UR (/) (RH, SH, UR) (12/07/2016 2:55 PM CDT) [facility] Method Time Signature Amphetamine Qual Negative NEG^Negat 12/07/2016 UN[facility]ERSITY O F Urine paula 3:48 PM CDT [facility] Comment: Cutoff for a negative amphetami ne is 500 ng/mL or less. Cannabinoids Qual Negative NEG^Negative 12/07/2016 3:48 PM [facility] Urine [facility] Comment: Cutoff for a negative cannabino id is 50 ng/mL or less. Cocaine Qual Urine Negative NEG^Negative 12/07/2016 3:48 PM [facility] Comment: Cutoff for a negative cocaine i s 300 ng/mL or less. Opiates Qualitative Negative NEG^Negative 12/07/2016 3:48 P M [facility] Urine [facility] Comment: Cutoff for a negative opiate is 300 ng/mL or less. Pcp Qual Urine Negative NEG^Negative 12/07/2016 3:48 PM CDT [facility] Comment: Cutoff for a negative PCP is 25 ng/mL or less. Specimen Anatomical Collection Method Collection Time Receive d Time (Source) Location / / Volume Laterality Urine specimen URINE SPECIMEN 12/07/2016 2:55 PM 12/07 3:22 (specimen) OBTAINED BY CLEAN CDT PM CDT CATCH PROCEDURE / Unknown Nora Leyva MD LAB - URINE ORDERABLES Performing Organization Address [facility] Phon e Number [address] [address] [facility] Chlamydia trachomatis PCR (12/07/2016 2:54 PM CDT) [facility] Method Time Signature Specimen Vagina 12/07/2016 [facility] OF Description 3:13 PM CDT [facility] Chlamydia Negative NEG^Negat 12/08/2016 [facility] OF Trachomatis PCR paula 1:55 PM CDT [facility] Comment: Negative for C. trachomatis rRNA by prescott scription mediated amplification. A negative result by operator supply media kris amplification does not preclude the [...] MICRO GENERAL ORDERABL ES Performing Organization Address City/[facility] Phon e Number [facility] [address] [place] [id number] [place] [address] Neisseria gonorrhoeae PCR (12/07/2016 2:54 PM CDT) Analysis Performed At Patho logist Time Signature Specimen Vagina 12/07/2016 [facility]ITY OF Descrip 3:13 PM CDT [facility] N Gonorrhea Negative NEG^Negati 12/08/2016 [facility] OF PCR ve 1:55 PM CDT [facility] Comment: Negative for N. gonorrhoeae rRNA by prescott scription mediated amplification. A negative result by operator supply media kris amplification does not preclude the [...] MICRO GENERAL ORDERABL ES Performing Organization Address City/[facility] Code Phon e Number [facility] [address] [place] [address] [address] [facility] Wet prep (12/07/2016 2:54 PM CDT) Component Value Ref Test Analysis Performed At Patholo gist Range Method Time Signature Specimen Vagina [facility]ITY [facility] Wet Prep No Trichomonas 12/07/2016 [facility] OF seen 3:34 PM CDT [facility] Wet Prep No yeast seen 12/07/2016 [facility] OF 3:34 PM CDT [facility] Wet Prep Moderate 12/07/2016 [facility] OF PMNs seen 3:34 PM CDT [facility] Wet Prep No clue cells 12/07/2016 [facility] OF seen 3:34 PM CDT [facility] Specimen Anatomical Collection Method Collection Time Receive d Time (Source) Location / / Volume Laterality Specimen from 12/07/2016 2:54 PM 12/08/19 17 3:10 vagina CDT PM CDT (specimen) Nora Leyva MD LAB - MICRO GENERAL ORDERABL ES Performing Organization Address City/[facility]/ZIP Code Phon e Number [address] [address] [facility] (ABNORMAL) Group B strep PCR (12/07/2016 2:54 PM CDT) [facility] [employer] Method Time Signature Group B Strep Vaginal 12/07/2016 UN[facility]ERSITY PCR Spec Valdemar Rectal 2:58 PM CDT [facility] Group B Strep Positive (A) NEG^Negat 12/08/2016 [facility] PCR paula 1:27 PM CDT [facility] Comment: Positive: GBS DNA detected, presumed pos itive for GBS. Assay performed on incubated broth cultu re of specimen using Inform[employer]at real-time PCR. Specimen Anatomical Collection Method Collection Time Receive d Time (Source) Location / / Volume Laterality Vaginal Rectal 12/07/2016 2:54 PM 017 3:14 CDT PM CDT Nora Leyva MD LAB - MICRO GENERAL ORDERABL ES Performing Organization Address City/[facility]/ZIP Code Phon e Number [facility] [address] [place] [address] [address] [facility] ABO/Rh type and screen (12/07/2016 2:41 PM CDT) [facility] [employer] Method Time Signature ABO B 12/07/2016 [facility] OF 6:08 PM CDT [facility] RH(D) Pos [facility] Antibody Neg 12/07/2016 [facility] OF Screen 6:08 PM CDT [facility] Test Valid University 12/07/2016 [facility] [place] 5:31 PM CDT [facility] [facility] Specimen 12/10/2016 12/07/2016 [facility] OF Expires 5:31 PM CDT [facility] Specimen Anatomical Collection Method Collection Time Receive d Time (Source) Location / / Volume Laterality Blood specimen 12/07/2016 2:41 PM 017 2:44 (specimen) CDT PM CDT Rossana Barker MD LAB - BLOOD BANK TEST ORDER Performing Organization Address City/[facility] Phon e Number [facility] [address] [place] [address] [facility] (ABNORMAL) CBC with platelets (12/07/2016 2:41 PM CDT) [facility] gist Method Time Signature WBC 8.4 4.0 - 11.0 12/07/2016 [facility] OF 10e9/L 2:47 PM CDT [facility] RBC Count 3.10 (L) 3.8 - 5.2 12/07/2016 [facility] OF 10e12/L 2:47 PM CDT [facility] Hemoglobin 9.4 (L) 11.7 - 12/07/2016 [facility] OF 15.7 g/dL 2:47 PM CDT [facility] Hematocrit 28.2 (L) 35.0 - 12/07/2016 [facility] OF 47.0 % 2:47 PM CDT [facility] MCV 91 78 - 100 12/07/2016 [facility] OF fl 2:47 PM CDT [facility] MCH 30.3 26.5 - 12/07/2016 [facility] OF 33.0 pg 2:47 PM CDT [facility] MCHC 33.3 31.5 - 12/07/2016 [facility] OF 36.5 g/dL 2:47 PM CDT [facility] RDW 17.1 (H) 10.0 - 12/07/2016 [facility] OF 15.0 % 2:47 PM CDT [facility] Platelet Count 185 150 - 450 12/07/2016 [facility] OF 10e9/L 2:47 PM CDT [facility] Specimen Anatomical Collection Method Collection Time Receive d Time (Source) Location / / Volume Laterality Blood specimen 12/07/2016 2:41 PM 017 2:42 (specimen) CDT PM CDT Rossana Barker MD LAB - BLOOD ORDERABLES Performing Organization Address City/[facility]/ZIP Code Phon e Number [facility] [address] [place] [address] [facility] (ABNORMAL) Referral sensitivity (12/07/2016 1:27 PM CDT) Component Value Ref [facility] Method Time Signature Specimen [...] Code Phon e Number INFECTIOUS DISEASES [address] [place] [address] DIAGNOSTIC LABORATORY, [facility] INFECTIOUS DISEASE [address] [place] [address], [facility] DIAGNOSTIC LABORATORY documented in this encounter Visit [...] (TYLENOL) tablet 650 Given 12/24/2016 7:52 AM ORGANIZATIONAL DEVELOPMENT CONSULTANT 650 mg mg 650 mg, Oral, EVERY 6 HOURS PRN, mild pain, fever, Starting on 12/08/16 at 0223, Maximum acetaminophen dose from all sources = 75 mg/kg/day not to exceed 4 grams/day. Given 12/23/2016 8:03 AM ORGANIZATIONAL DEVELOPMENT CONSULTANT 650 mg Given 12/22/2016 7:05 PM ORGANIZATIONAL DEVELOPMENT CONSULTANT 650 mg acetaminophen (TYLENOL) tablet 975 mg Given 12/27/2016 12:40 PM ORGANIZATIONAL DEVELOPMENT CONSULTANT 975 mg 975 mg, Oral, EVERY 8 HOURS, First dose on Fri12/25/16 at 0000, For 3 days, Do not use if patient has an active opioid/acetaminophen analgesic order for pain Maximum acetaminophen dose from all sources = 75 mg/kg/day not to exceed 4 grams/day., Post-procedure Given 12/27/2016 2:07 AM ORGANIZATIONAL DEVELOPMENT CONSULTANT 975 mg Given 12/26/2016 6:00 PM ORGANIZATIONAL DEVELOPMENT CONSULTANT 975 mg amoxicillin (AMOXIL) capsule 250 mg [...] mg bacitracin ointment Given 12/27/2016 8:12 AM ORGANIZATIONAL DEVELOPMENT CONSULTANT Topical, 3 TIMES DAILY, First dose on Fri12/22/16 at 1400, Apply to areas of picking. Given 12/25/2016 1:01 PM ORGANIZATIONAL DEVELOPMENT CONSULTANT Given 12/24/2016 7:56 AM ORGANIZATIONAL DEVELOPMENT CONSULTANT benzocaine (ORAJEL MAXIMUM STRENGTH) 20 % gel Given 12/24/2016 9:19 AM ORGANIZATIONAL DEVELOPMENT CONSULTANT Mouth/Throat, 4 TIMES DAILY PRN, moderate pain, [...] Suppository 10 mg Given 12/25/2016 9:53 PM ORGANIZATIONAL DEVELOPMENT CONSULTANT 10 mg 10 mg, Rectal, DAILY PRN, constipation, Starting on Fri12/25/16 at 2148, Start POD 2, Post-procedure buprenorphine (SUBUTEX) sublingual table t 2 mg Given 12/27/2016 8:10 AM ORGANIZATIONAL DEVELOPMENT CONSULTANT 2 mg 2 mg, Sublingual, 5 TIMES DAILY, First dose on Fri12/07/16 at 1545 Given 12/27/2016 4:06 AM ORGANIZATIONAL DEVELOPMENT CONSULTANT 2 mg Given 12/26/2016 10:38 PM ORGANIZATIONAL DEVELOPMENT CONSULTANT 2 mg buPROPion (WELLBUTRIN SR) 12 hr tablet 1 50 mg Given 12/27/2016 8:10 AM ORGANIZATIONAL DEVELOPMENT CONSULTANT 150 mg 150 mg, Oral, DAILY, First dose on Fri12/17/16 at 0800, DO NOT CRUSH. Given 12/26/2016 8:23 AM ORGANIZATIONAL DEVELOPMENT CONSULTANT 150 mg Given 12/25/2016 7:52 AM ORGANIZATIONAL DEVELOPMENT CONSULTANT 150 mg carbamide peroxide (DEBROX) 6.5 % otic Given 12/23/2016 8:16 PM ORGANIZATIONAL DEVELOPMENT CONSULTANT 3 drops solution 3 drop 3 drop, Right Ear, 2 TIMES DAILY, First dose on Fri12/17/16 at 2000 Given 12/23/2016 8:49 AM ORGANIZATIONAL DEVELOPMENT CONSULTANT 3 drops Given 12/22/2016 7:52 PM ORGANIZATIONAL DEVELOPMENT CONSULTANT 3 drops clindamycin (CLEOCIN) infusion 900 New Bag 12/25/2016 1:32 PM ORGANIZATIONAL DEVELOPMENT CONSULTANT 900 mg 50 mL/hr mg Routine, 900 mg, Intravenous, EVERY 8 HOURS, First dose on Fri12/25/16 at 0430, For 24 hours, Indications: Perioperative Pharmacoprophylaxis New Bag 12/25/2016 6:19 AM ORGANIZATIONAL DEVELOPMENT CONSULTANT 900 mg 50 mL/hr cyclobenzaprine (FLEXERIL) tablet 10 mg Given 12/23/2016 10:10 PM ORGANIZATIONAL DEVELOPMENT CONSULTANT 10 mg 10 mg, Oral, AT BEDTIME PRN, muscle spasms, Starting on Fri12/09/16 at 2342 Given 12/22/2016 11:17 PM ORGANIZATIONAL DEVELOPMENT CONSULTANT 10 mg Given 12/21/2016 10:15 PM CDT 10 mg diphenhydrAMINE (BENADRYL) capsule 25 mg Given 12/25/2016 7:23 PM ORGANIZATIONAL DEVELOPMENT CONSULTANT 25 mg 25 mg, Oral, EVERY 6 [...] emollient (VANICREAM) cream Given 12/24/2016 9:19 AM ORGANIZATIONAL DEVELOPMENT CONSULTANT Topical, EVERY 2 HOURS PRN, other, area of dry skin, Starting on Fri12/15/16 at 1239, Apply to areas of dry skin fentaNYL (PF) (SUBLIMAZE) injection 50 m cg Given 12/25/2016 1:03 AM ORGANIZATIONAL DEVELOPMENT CONSULTANT 50 mcg 50 mcg, Intravenous, EVERY 2 [...] 100 mcg., PACU Given 12/25/2016 12:48 AM ORGANIZATIONAL DEVELOPMENT CONSULTANT 50 mcg Given 12/25/2016 12:26 AM ORGANIZATIONAL DEVELOPMENT CONSULTANT 50 mcg fluconazole (DIFLUCAN) tablet 150 mg Given 12/24/2016 7:49 AM ORGANIZATIONAL DEVELOPMENT CONSULTANT 150 mg Routine, 150 mg, Oral, ONCE, On Fri12/24/16 at 0800, For 1 dose, Indications: Candidiasis gentamicin (GARAMYCIN) 120 mg in NaCl 0.9 % New Bag 09/2016 8:34 PM ORGANIZATIONAL DEVELOPMENT CONSULTANT 120 mg 100 mL intermittent infusion Routine, 120 mg, Intravenous, EVERY 8 HOURS, First dose on Fri12/25/16 at 0500, For 24 hours, Indications: Perioperative Pharmacoprophylaxis New Bag 12/25/2016 12:18 PM ORGANIZATIONAL DEVELOPMENT CONSULTANT 120 mg New Bag 12/25/2016 5:01 AM ORGANIZATIONAL DEVELOPMENT CONSULTANT 120 mg hydrocortisone (CORTAID) 1 % cream Given 12/27/2016 8:12 AM ORGANIZATIONAL DEVELOPMENT CONSULTANT Topical, 2 TIMES DAILY, First dose on Fri12/17/16 at 2115, Apply to upper arms and left abdomen Given 12/25/2016 8:09 AM ORGANIZATIONAL DEVELOPMENT CONSULTANT Given 12/23/2016 8:48 AM ORGANIZATIONAL DEVELOPMENT CONSULTANT Left Arm HYDROmorphone (DILAUDID) Loading Dose Given 12/25/2016 3:[address] 0.2 mg administered from BEHAVIORAL HEALTH SPECIALIST 0.2-0.3 mg 0.2-0.3 mg, Intravenous, BEHAVIORAL HEALTH SPECIALIST LOADING DOSE, On Fri12/25/16 at 0000, For 1 dose, LOADING DOSE (bolus) with start of BEHAVIORAL HEALTH SPECIALIST. DO NOT GIVE IF A LOADING BOLUS DOSE HAS ALREADY BEEN GIVEN. (If loading dose not given from BEHAVIORAL HEALTH SPECIALIST, bar code scan must be overridden to chart dose)., Post-procedure HYDROmorphone (DILAUDID) BEHAVIORAL HEALTH SPECIALIST 1 New Syringe/Cartridge 12/25/2016 1:00 AM ORGANIZATIONAL DEVELOPMENT CONSULTANT mg/mL BEHAVIORAL HEALTH SPECIALIST dose (mg): 0.2, Max BEHAVIORAL HEALTH SPECIALIST dose (mg): 0.3, Lockout Interval (min): 10 minutes, BEHAVIORAL HEALTH SPECIALIST Continuous Rate (mg/hr): CONTINUOUS RATE IS NOT RECOMMENDED FOR OPIOID NAIVE PATIENTS, Hour Limit (mg): 1.8, First dose on Fri12/25/16 at 0000, Do NOT give any additional opioids while on BEHAVIORAL HEALTH SPECIALIST. When transitioning from BEHAVIORAL HEALTH SPECIALIST to oral opioids MAY give first oral opioid dose 30 minutes PRIOR to discontinuation of BEHAVIORAL HEALTH SPECIALIST., Intravenous, Post-procedure HYDROmorphone (DILAUDID) BEHAVIORAL HEALTH SPECIALIST 1 mg/mL Shift Total 12/25/2016 6:24 AM ORGANIZATIONAL DEVELOPMENT CONSULTANT BEHAVIORAL HEALTH SPECIALIST dose (mg): 0.2, Max BEHAVIORAL HEALTH SPECIALIST dose (mg): 0.3, Lockout Interval (min): 10 minutes, BEHAVIORAL HEALTH SPECIALIST Continuous Rate (mg/hr): CONTINUOUS RATE IS NOT RECOMMENDED FOR OPIOID NAIVE PATIENTS, Hour Limit (mg): 2, First dose (after last modification) on Fri12/25/16 at 0430, Do NOT give any additional opioids while on BEHAVIORAL HEALTH SPECIALIST. When transitioning from BEHAVIORAL HEALTH SPECIALIST to oral opioids MAY give first oral opioid dose 30 minutes PRIOR to discontinuation of BEHAVIORAL HEALTH SPECIALIST., Intravenous, Post-procedure Rate/Dose Verify 12/25/2016 4:54 AM ORGANIZATIONAL DEVELOPMENT CONSULTANT 0.3 mg HYDROmorphone (DILAUDID) BEHAVIORAL HEALTH SPECIALIST 1 mg/mL Rate/Dose Verify 12/25/2016 9:01 AM ORGANIZATIONAL DEVELOPMENT CONSULTANT BEHAVIORAL HEALTH SPECIALIST dose (mg): 0.3, Max BEHAVIORAL HEALTH SPECIALIST dose (mg): 0.5, Lockout Interval (min): 10 minutes, BEHAVIORAL HEALTH SPECIALIST Continuous Rate (mg/hr): 0.3, MAX Continuous Rate (mg/hr): 0.3, Hour Limit (mg): 3.3, First dose on Fri12/25/16 at 0845, Do NOT give additional opioids orders unless requested by provider., Intravenous HYDROmorphone (PF) (DILAUDID) injection Given 12/26/2016 8:34 AM ORGANIZATIONAL DEVELOPMENT CONSULTANT 0.3 mg 0.2-0.3 mg 0.2-0.3 mg, Intravenous, EVERY 1 HOUR PRN, moderate to severe pain, Starting on Zoe 12/26/16 at 0407, Give IV Push undiluted up to 4 mg. Each 2mg over 2-5 minutes. Given 12/26/2016 6:57 AM ORGANIZATIONAL DEVELOPMENT CONSULTANT 0.3 mg Given 12/26/2016 5:07 AM ORGANIZATIONAL DEVELOPMENT CONSULTANT 0.3 mg HYDROmorphone (PF) (DILAUDID) injection Given 12/26/2016 1:52 AM ORGANIZATIONAL DEVELOPMENT CONSULTANT 0.5 mg 0.3-0.5 mg 0.3-0.5 mg, Intravenous, EVERY 1 HOUR PRN, moderate to severe pain, Starting on Fri12/25/16 at 1559, Give IV Push undiluted up to 4 mg. Each 2mg over 2-5 minutes. Given 12/26/2016 12:31 AM ORGANIZATIONAL DEVELOPMENT CONSULTANT 0.5 mg Given 12/25/2016 10:34 PM ORGANIZATIONAL DEVELOPMENT CONSULTANT 0.5 mg HYDROmorphone (PF) (DILAUDID) injection 0.5 Given 12/25/2016 2:30 AM ORGANIZATIONAL DEVELOPMENT CONSULTANT 0.5 mg mg 0.5 mg, Intravenous, EVERY [...] minutes., PACU/Phase II Given 12/25/2016 1:56 AM ORGANIZATIONAL DEVELOPMENT CONSULTANT 0.5 mg Given 12/25/2016 1:31 AM ORGANIZATIONAL DEVELOPMENT CONSULTANT 0.5 mg hydrOXYzine (ATARAX) tablet 50 mg Given 12/08/2016 3:19 AM CDT 50 mg 50 mg, Oral, ONCE, On 12/08/16 at 0315, For 1 dose ibuprofen (ADVIL/MOTRIN) tablet 600 mg Given 12/27/2016 9:24 AM ORGANIZATIONAL DEVELOPMENT CONSULTANT 600 mg 600 mg, Oral, EVERY 6 HOURS RT, First dose (after last modification) on Zoe 12/26/16 at 0800, Ibuprofen to start after toradol finishes Given 12/27/2016 3:07 AM ORGANIZATIONAL DEVELOPMENT CONSULTANT 600 mg Given 12/26/2016 9:01 PM ORGANIZATIONAL DEVELOPMENT CONSULTANT 600 mg indomethacin (INDOCIN) capsule 25 mg [...] injection 30 mg Given 12/26/2016 2:29 AM ORGANIZATIONAL DEVELOPMENT CONSULTANT 30 mg 30 mg, Intravenous, EVERY 6 HOURS PRN, moderate to severe pain, Starting on 12/25/16 at 0826, For 24 hours, For ordered doses up to 30 mg, give IV Push undiluted over 2 minutes. Given 12/25/2016 8:23 PM ORGANIZATIONAL DEVELOPMENT CONSULTANT 30 mg Given 12/25/2016 2:04 PM ORGANIZATIONAL DEVELOPMENT CONSULTANT 30 mg lactated ringers BOLUS 1,000 mL New Bag 12/24/2016 6:45 PM ORGANIZATIONAL DEVELOPMENT CONSULTANT 1,000 mLs Intravenous, 1,000 mL, ONCE, On 12/24/16 at 1900, For 1 dose, Prior to surgery. IF preeclamptic give only 500 mL, Pre-procedure lactated ringers infusion Rate/Dose Verify 12/07/2016 11:20 PM CDT 50 mL/hr at 50 mL/hr, Intravenous, CONTINUOUS, Starting on 12/07/16 at 1515, Until 12/09/16 at 1712 lactated ringers infusion New Bag 12/25/2016 5:40 PM ORGANIZATIONAL DEVELOPMENT CONSULTANT 125 mL/hr at 125 mL/hr, Intravenous, CONTINUOUS, Starting on Fri12/25/16 at 0430, Until Zoe 12/26/16 at 0911 New Bag 12/25/2016 6:18 AM ORGANIZATIONAL DEVELOPMENT CONSULTANT 125 mL/hr Rate/Dose Change 12/25/2016 5:06 AM ORGANIZATIONAL DEVELOPMENT CONSULTANT 125 mL/hr levothyroxine (SYNTHROID/LEVOTHROID) tablet Given 11/18 7:46 AM CDT 125 mcg 125 mcg 125 mcg, Oral, DAILY, First dose on Fri12/08/16 at 0800, Separate oral administration of iron- or calcium-containing products and levothyroxine by at least 4 hours. Given 12/09/2016 10:11 AM CDT 125 mcg Given 12/08/2016 8:01 AM CDT 125 mcg levothyroxine (SYNTHROID/LEVOTHROID) tablet Given 12/18 8:10 AM ORGANIZATIONAL DEVELOPMENT CONSULTANT 150 mcg 150 mcg 150 mcg, Oral, DAILY, First dose (after last modification) on Fri12/11/16 at 0800, Separate oral administration of iron- or calcium-containing products and levothyroxine by at least 4 hours. Given 12/26/2016 8:24 AM ORGANIZATIONAL DEVELOPMENT CONSULTANT 150 mcg Given 12/25/2016 7:52 AM ORGANIZATIONAL DEVELOPMENT CONSULTANT 150 mcg lidocaine (LMX4) 4 % kit Given by Other 12/25/2016 8:34 PM ORGANIZATIONAL DEVELOPMENT CONSULTANT Starting on Fri12/25/16 at 1930, For 1 dose, Maria Antonia Hidalgo : cabinet override magic mouthwash suspension (diphenhydramine, lidocaine , aluminum-magnesium & simethicone) 10 mL, Swish & Swallow, EVERY 6 HOURS OH N, mouth sores, Starting on Fri12/24/16 at [...] NS intermittent Given 12/24/2016 7:15 P M ORGANIZATIONAL DEVELOPMENT CONSULTANT 6 g infusion (cmpd premix) 6 g, [...] injection 4 mg Given 12/22/2016 5:06 PM ORGANIZATIONAL DEVELOPMENT CONSULTANT 4 mg 4 mg, Intravenous, EVERY 6 [...] 10-15 m g Given 12/25/2016 1:18 PM ORGANIZATIONAL DEVELOPMENT CONSULTANT 15 mg 10-15 mg, Oral, EVERY 4 HOURS PRN, moderate to severe pain, Starting on Fri12/25/16 at 1246 oxyCODONE IR (ROXICODONE) tablet 15-20 m g Given 12/27/2016 12:40 PM ORGANIZATIONAL DEVELOPMENT CONSULTANT 20 mg 15-20 mg, Oral, EVERY 3 HOURS PRN, moderate to severe pain, Starting on Fri12/25/16 at 1645, Patient is an opioid tolerant patient and will require higher narcotic doses due to buprenorphine. Given 12/27/2016 9:24 AM ORGANIZATIONAL DEVELOPMENT CONSULTANT 20 mg Given 12/27/2016 6:21 AM ORGANIZATIONAL DEVELOPMENT CONSULTANT 20 mg potassium chloride (KLOR-CON) Packet 20- [...] iron per tablet Given 12/24 7:49 AM ORGANIZATIONAL DEVELOPMENT CONSULTANT 1 tablet 1 tablet 1 tablet, Oral, DAILY, First dose on Fri12/13/16 at 1300 Given 12/23/2016 8:48 AM ORGANIZATIONAL DEVELOPMENT CONSULTANT 1 tablet Given 12/22/2016 8:10 AM ORGANIZATIONAL DEVELOPMENT CONSULTANT 1 tablet senna-docusate (SENOKOT-S;PERICOLACE) Given 12/17/2016 8:05 [...] Fri12/17/16 at 2000 Given 12/23/2016 8:15 PM ORGANIZATIONAL DEVELOPMENT CONSULTANT 1 tablet Given 12/23/2016 8:48 AM ORGANIZATIONAL DEVELOPMENT CONSULTANT 1 tablet senna-docusate (SENOKOT-S;PERICOLACE) Given 12/27/2016 8:10 [...] to opioids., Post-procedure Given 12/26/2016 9:01 PM ORGANIZATIONAL DEVELOPMENT CONSULTANT 2 tablets Given 12/26/2016 8:23 AM ORGANIZATIONAL DEVELOPMENT CONSULTANT 2 tablets simethicone (MYLICON) chewable tablet 80 mg Given 12/26/2016 1:54 PM ORGANIZATIONAL DEVELOPMENT CONSULTANT 80 mg 80 mg, Oral, 4 TIMES DAILY PRN, other, gas, Starting on Fri12/25/16 at 0352, Chew., Post-procedure Given 12/26/2016 6:36 AM ORGANIZATIONAL DEVELOPMENT CONSULTANT 80 mg Given 12/26/2016 12:31 AM ORGANIZATIONAL DEVELOPMENT CONSULTANT 80 mg sodium chloride (OCEAN) 0.65 % [...] flush 3 mL Given 12/24/2016 3:06 PM ORGANIZATIONAL DEVELOPMENT CONSULTANT 3 mLs 3 mL, Intracatheter, EVERY 8 HOURS, First dose on Fri12/07/16 at 1515, And Q1H PRN, to lock peripheral IV dormant line. Given 12/24/2016 6:16 AM ORGANIZATIONAL DEVELOPMENT CONSULTANT 3 mLs Given 12/23/2016 10:05 PM ORGANIZATIONAL DEVELOPMENT CONSULTANT 3 mLs sodium chloride (PF) 0.9% PF flush 3 mL Given 12/24/2016 6:52 PM ORGANIZATIONAL DEVELOPMENT CONSULTANT 3 mLs 3 mL, Intravenous, EVERY 8 HOURS, First dose on Fri12/24/16 at 1900, And Q1H PRN, to lock peripheral IV dormant line. , Pre-procedure sodium chloride (PF) 0.9% PF flush 3 mL Given 12/26/2016 6:58 AM ORGANIZATIONAL DEVELOPMENT CONSULTANT 3 mLs 3 mL, Intracatheter, EVERY 1 HOUR PRN, line flush, for peripheral IV flush post IV meds, Starting on Fri12/25/16 at 0352, Post-procedure Given 12/26/2016 5:07 AM ORGANIZATIONAL DEVELOPMENT CONSULTANT 3 mLs Given 12/26/2016 1:52 AM ORGANIZATIONAL DEVELOPMENT CONSULTANT 3 mLs sodium chloride (PF) 0.9% PF flush 3 mL Given 12/26/2016 2:29 AM ORGANIZATIONAL DEVELOPMENT CONSULTANT 3 mLs 3 mL, Intracatheter, EVERY 8 HOURS, First dose on Fri12/25/16 at 0400, And Q1H PRN, to lock peripheral IV dormant line., Post-procedure Given 12/25/2016 8:34 PM ORGANIZATIONAL DEVELOPMENT CONSULTANT 3 mLs Given 12/25/2016 12:12 PM ORGANIZATIONAL DEVELOPMENT CONSULTANT 3 mLs sodium citrate-citric acid (BICITRA) 500 -334 MG/5ML solution Starting on Fri12/24/16 at 1850, For 1 dose, Jon Joya : cabinet override sodium citrate-citric acid (BICITRA) solution Given 7:00 PM ORGANIZATIONAL DEVELOPMENT CONSULTANT 30 mLs 30 mL 30 mL, Oral, PRE-OP/PRE-PROCEDURE, Starting on Fri12/24/16 at 1848, For 1 dose, For gastric pH neutralization. GIVE WITHIN 45 minutes PRIOR TO SURGICAL PROCEDURE., Pre-procedure venlafaxine (EFFEXOR-ER) 24 hr tablet 15 0 mg Given 12/27/2016 8:10 AM ORGANIZATIONAL DEVELOPMENT CONSULTANT 150 mg 150 mg, Oral, DAILY WITH BREAKFAST, First dose (after last modification) on Fri12/09/16 at 0800, DO NOT CRUSH. Given 12/26/2016 8:23 AM ORGANIZATIONAL DEVELOPMENT CONSULTANT 150 mg Given 12/25/2016 11:12 AM ORGANIZATIONAL DEVELOPMENT CONSULTANT 150 mg venlafaxine (EFFEXOR-ER) 24 hr tablet 30 0 mg Given 12/08/2016 8:27 AM CDT 150 mg 300 mg, Oral, DAILY WITH BREAKFAST, First dose on Fri12/08/16 at 0800, DO NOT CRUSH. documented in this encounter Active and Recently Administered Medications Times are shown in ORGANIZATIONAL DEVELOPMENT CONSULTANT. Scheduled Medication Order 12/25/2016 12/26/2016 12/27/2016 acetaminophen [...] Generic Provider)0332 (Canceled Entry - Provider: Khloe Elmore, GENARO)0404 (Given - Provider: Khloe Elmore RN) 0421 [...] Gates RN)1231 (Given - Provider: Maria Antonia Hidalgo RN)1642 (Given - Provider: Maria Antonia Hidalgo RN)2302 [...] RN)1332 (New Bag - Provider: Maria Antonia Hidalgo RN) 900 mg, Intravenous, EVERY 8 HOURS, Firs t dose on Fri12/25/16 at 0430, For 24 hours, Indications: Perioperative Pharmacoprophylaxis gentamicin (GARAMYCIN) 120 mg in NaCl 0. 9 % 100 mL intermittent infusion (COMPLETED) 050 (New Bag - Provider: Khloe Elmore, RN)121 (New Bag - Provider: Maria Antonia Hidalgo RN)2033 (New Bag - Provider: Yessenia Julian, GENARO) 120 mg, Intravenous, EVERY 8 HOURS, Firs t dose on Fri12/25/16 at 0500, For 24 hours, Indications: Perioperative Pharmacoprophylaxis hydrocortisone (CORTAID) 1 % cream 0218 (Auto Hold - P rovider: Orders Generic Provider - Reason: Transfer to a procedural area)0306 (Unhold - Provider: Orders Generic Provider)0809 (Given - Provider: Fransisca Gates RN) 1327 [...] HYDROmorphone (DILAUDID) Loading Dose ad ministered from BEHAVIORAL HEALTH SPECIALIST 0.2-0.3 mg (COMPLETED) 033 (Given - Provider: Khloe Elmore RN) 0.2-0.3 mg, Intravenous, BEHAVIORAL HEALTH SPECIALIST LOADING DOS E, Fri12/25/16 at 0000, For 1 dose, LOADING DOSE (bolus) with start of BEHAVIORAL HEALTH SPECIALIST. DO NOT GIVE IF A LOADING BOLUS DOSE HAS ALREADY BEEN GIVEN. (If loading dose not given from BEHAVIORAL HEALTH SPECIALIST, bar code scan must be overridden to chart dose)., Pos t-procedure HYDROmorphone (DILAUDID) BEHAVIORAL HEALTH SPECIALIST 1 mg/mL (CANCELED) 0100 ( New Syringe/Cartridge - Provider: Lisa Rubio RN)0218 (Auto Hold - Provider: Orders Generic Provider - Reason: Transfer to a procedural area)0253 (Unhold - Provider: Marleny Kang MD) BEHAVIORAL HEALTH SPECIALIST dose (mg): 0.2, Max BEHAVIORAL HEALTH SPECIALIST dose (mg): 0 .3, Lockout Interval (min): 10 minutes, BEHAVIORAL HEALTH SPECIALIST Continuous Rate (mg/hr): CONTINUOUS RATE IS NOT RECOMMENDED FOR OPIOID NAIVE PATIENTS, Hour Limit (mg): 1.8, First dos e on Fri12/25/16 at 0000, Do NOT give an y additional opioids while on BEHAVIORAL HEALTH SPECIALIST. When transitioning from BEHAVIORAL HEALTH SPECIALIST to oral opioids MAY give first oral opioid dose 30 minutes PRIOR to discontinuation of BEHAVIORAL HEALTH SPECIALIST., Intravenous, Post-procedure HYDROmorphone (DILAUDID) BEHAVIORAL HEALTH SPECIALIST 1 mg/mL (CANCELED) 0454 ( Rate/Dose Verify - Provider: Khloe Elmore RN)0508 (Canceled Entry - Provider: Khloe Elmore RN)0624 (Shift Total - Provider: Khloe Elmore RN) BEHAVIORAL HEALTH SPECIALIST dose (mg): 0.2, Max BEHAVIORAL HEALTH SPECIALIST dose (mg): 0 .3, Lockout Interval (min): 10 minutes, BEHAVIORAL HEALTH SPECIALIST Continuous Rate (mg/hr): CONTINUOUS RATE IS NOT RECOMMENDED FOR OPIOID NAIVE PATIENTS, Hour Limit (mg): 2, First dose on Fri12/25/16 at 0430, Do NOT give any additional opioids while on BEHAVIORAL HEALTH SPECIALIST. When transitioning from BEHAVIORAL HEALTH SPECIALIST to oral opioids MAY give first oral opioid dose 30 minutes PRIOR to discontinuation of BEHAVIORAL HEALTH SPECIALIST., Intravenous, Post-procedure HYDROmorphone (DILAUDID) BEHAVIORAL HEALTH SPECIALIST 1 mg/mL (CANCELED) 0845 ( Canceled Entry - Provider: Fransisca Gates RN)0901 (Rate/Dose Verify - Provider: Fransisca Gates RN)1350 (Stopped - Provider: Maria Antonia Hidalgo RN) BEHAVIORAL HEALTH SPECIALIST dose (mg): 0.3, Max BEHAVIORAL HEALTH SPECIALIST dose (mg): 0 .5, Lockout Interval (min): 10 minutes, BEHAVIORAL HEALTH SPECIALIST Continuous Rate (mg/hr): 0.3, MAX Continuous Rate (mg/hr): 0.3, Hour Limit (mg): 3.3, First dose on Fri12/25/16 at 084 5, Do NOT give additional opioids orders unless requested by provider., Intravenous ibuprofen (ADVIL/MOTRIN) tablet 600 mg 0 823 (Given - Provider: Hyacinth Wolf RN)1351 (Given - Provider: Hyacinth Wolf RN)210 (Given - Provider: Gudelia Clemons, GENARO) 0307 (Given - Provider: Lucia Cotton RN)0810 (Not Given - Provider: Brenna Verduzco, GENARO - Reason: Contraindicated)0924 (Given - Provider: Brenna [...] Hyacinth Wolf RN)210 (Given - Provider: Gudelia Clemons, RN) 0810 (Given - Provider: Brenna Verduzco, [...] Infusing)1212 (Given - Provider: Maria Antonia Hidalgo, RN)2034 (Given - Provider: Yessenia Julian, GENARO) 0229 (Given - Provider: Lucia Cotton, GENARO)0635 (Not Given - Provider: Lucia Cotton, GENARO - Reason: Other - Comment: already gave) [...] GENARO)0618 (New Bag - Provider: Khloe Elmore, RN)1740 (New Bag - Provider: Maria Antonia [...] mg 2153 (Given - P rovider: Yessenia Julian, GENARO) 10 mg, Rectal, DAILY PRN, constipation, Starting [...] PRN, other, area of dry skin, Starting Fri12/15/16 at 1239, Apply to areas of dry skin fentaNYL (PF) (SUBLIMAZE) injection 50 mcg (CANCELED) 0015 (Given - Provider: Lisa Rubio RN)0026 (Given - Provider: Lisa Rubio, GENARO)0048 (Given - Provider: Lisa Rubio, RN)0103 (Given - Provider: Lisa Rubio, GENARO) 50 [...] RN) 0.2-0.3 mg, Intravenous, EVERY 1 HOUR OH N, Starting Fri12/26/16 at 0407, Until Fri12/26/16 at 0911, moderate to severe pain, Give IV Push undiluted up to 4 mg. Each 2mg over 2-5 minutes. HYDROmorphone (PF) (DILAUDID) injection 0.3-0.5 mg (CA NCELED) 1642 (Given - Provider: Maria Antonia Hidalgo, GENARO)182 (Given - Provider: Maria Antonia Hidalgo, GENARO)1943 (Given - Provider: Maria Antonia Hidalgo, GENARO)2128 (Given - Provider: Yessenia Julian, GENARO)2233 (Given - Provider: Yessenia Julian, GENARO) 003 (Given - Provider: Lucia Cotton RN)0152 (Given - Provider: Lucia Cotton RN) 0.3-0.5 mg, Intravenous, EVERY 1 HOUR OH N, Starting Fri12/25/16 at 1559, Until Fri12/26/16 at 0407, moderate to severe pain, Give IV Push undiluted up to 4 mg. Each 2mg over 2-5 minutes. HYDROmorphone (PF) (DILAUDID) injection 0.5 mg (CANCEL ED) 0120 (Given - Provider: Lisa Rubio, GENARO)0131 (Given - Provider: Lisa Rubio, GENARO)0156 (Given [...] Gates RN)1404 (Given - Provider: Maria Antonia Hidalgo, GENARO)2022 [...] mL, Swish & Swallow, EVERY 6 HOURS OH N, mouth sores, Starting Tu12/24/16 at 1014 methylergonovine (METHERGINE) injection 200 mcg [...] Hyacinth Wolf RN)1507 (Given - Provider: Hyacinth Wofl RN) 0307 (Given - Provider: Lucia Cotton [...] 20-40 mEq, Oral, EVERY 2 HOURS PRN, Torrey ingram Fri12/25/16 at 0356, potassium supplementation, Use if [...] by Ot her - Provider: Yessenia Julian, GENARO) Starting on Fri12/25/16 at 1930, For 1 [...]
Post-procedure documented in this encounter Care Teams Configuration Management Advisor Relationship Specialty Start Date End Date Luis Fernando Magana PCP - General Family Practice 12/07/16 01/19/[address] [address] documented as of this encounter
--- OUTSIDE RECORDS SUMMARY | 2021-12-13 12:38 | XMS_ITS | Encounter Summary ---
:1980 Author Organization [place] Address [address] [place] [address] Care Team Providers Name Role Phone Chino Luis Fernando Cortes Primary Care Provider Encounter Details Date Type Department Care Team Description 12/20/2016 Orders Only [facility] Tarsha Torres Plac enta accreta in Birthplace MD Ann Marie third trimester [address] [facility] (Primary Dx) [place] [address] Social History Tobacco Use Types Packs/Day Years Used Date Smoking Tobacco: Every Day Cigarettes 0.1 10 Smokeless Tobacco: Never Comments: 5 cigarettes a day Alcohol Use Standard Drinks/Week Comments Yes 0 (1 standard drink = 0.6 oz pure Stoppe d after found out alcohol) Sex Assigned at Date Recorded Female 01/14/2020 10:57 AM 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 documented as of this encounter Plan of Treatment Upcoming Encounters Date Type Specialty Care Team Description 12/20/2021 Office Visit Wound Care Luis Camara, [place] [address] [place], [place] [id number] (Wo rk) 01/21/2022 PRE VISIT Gastroenterology Landon Warren, *-*HEATHER G RECORDS*-* MD Luis Fernando [address] [facility] [address] [place] [address] (Reinaldo rk) 01/21/2022 Office Visit Gastroenterology Juanis Levi [address] [place] [address] Luis Fernando Miles MD [address] [facility] [address] [place] [address] documented as of this encounter Visit Diagnoses Diagnosis Placenta accreta in third trimester - Pr imary Retained placenta without hemorrhage, un specified as to episode of care documented in this encounter Care Teams Carton Forming Machine Adjuster Relationship Specialty Start Date End Date Luis Fernando Magana PCP - General Family Practice 12/07/16 01/19/[address] [address] documented as of this encounter
--- OUTSIDE RECORDS SUMMARY | 2021-12-13 12:38 | XMS_ITS | Encounter Summary ---
:1980 Author Organization [place] Address [address] [facility] [place] [address] Care Team Providers Name Role Phone Luis Fernando Magana Primary Care Provider Reason for Visit Auth/Cert Specialty Diagnoses / Procedures Referred By Contact Refer red To Contact roller print tender Diagnoses Maternity*JEAN MARIE: 03/07/2017 Rupture premature rupture of membranes (PPROM) delivered, current hospitalization [facility] [address] [place] [address] Phone: Referral ID Status Reason Start Date Expiration Date Visits Requ ested Visits Authorized [id number] 12/09/2016 12/09/2017 1 1 Encounter Details Date Type Department Care Team Description 12/23/2016 Hospital Encounter [facility] Lashawn Patel, Maternal Medicine [facility] [address] [facility] [address] [place] [id number] [phone] Social History Tobacco Use Types Packs/Day Years Used Date Smoking Tobacco: Every Day Cigarettes 0.1 10 Smokeless Tobacco: Never Comments: 5 cigarettes a day Alcohol Use Standard Drinks/Week Comments Yes 0 (1 standard drink = 0.6 oz pure Stoppe d after found out alcohol) Sex Assigned at Date Recorded Female 01/14/2020 10:57 AM TOOL AND DIE DESIGNER documented as of this encounter Medications at [...] Wound Care Luis Camara DPM [address] [place] [address] (Wo rk) 01/21/2022 PRE VISIT Gastroenterology Landon Warren, *-*WANDAIN G RECORDS*-* MD Luis Fernando [address] [address] (Wo rk) 01/21/2022 Office Visit Gastroenterology Juanis Levi [address] [place] [address] Luis Fernando Miles MD [address] [facility] [address] [place] [address] documented as of this encounter Procedures Procedure Name Priority Date/Time Associated Diagnosis Comme nts [facility] BPP SINGLE Routine 12/23/2016 8:37 AM Results for this TOOL AND DIE DESIGNER procedure are i n the results section . documented in this encounter Results Maternal BPP Single (12/23/2016 8:37 AM TOOL AND DIE DESIGNER) Anatomical Region Laterality Modality Ultrasound Specimen (Source) Anatomical Collection Method Collection Time Re ceived Time Location / / Volume Laterality 12/23/2016 8:05 AM TOOL AND DIE DESIGNER Impressions 12/23/2016 11:10 AM TOOL AND DIE DESIGNER IMPRESSION 1) Intrauterine at 29 3/7 week s gestational age. 2) The BPP is reassuring. 3) The amniotic fluid volume low consist ent with known PPROM. 4) There is a complete posterior/lateral placenta previa. Narrative 12/23/2016 11:10 AM TOOL AND DIE DESIGNER BPP Pat. Name: STEPHANI REDDY Study Date: 8:05am Pat. NO: [id number] Referring ??: CHRIST LOZADA Site: [facility] Surgery Technician: Jay Lu : 1980 Age: 36 INDICATION Premature Rupture of Membranes ( PPROM) Complete previa. METHOD [facility] ANTEPARTUM inpatient exam, Transabd ominal [...] but not detected. Procedure Note Petrona Barone, DO - 12/23/2016 BPP Pat. Name:Elizabeth REDDY Date:12/23 8:05am Pat. NO: [id number] MD:CHRIST BHAT ON [facility]Yesenia [facility] RDMS :1980Age:36 INDICATION Premature Rupture of Membranes ( PPROM) Complete previa. METHOD [facility] ANTEPARTUM inpatient exam, Transabd ominal [...] complete posterior/lateral placenta previa. Lashawn Patel MD [facility] ORDERABLES documented in this encounter Visit Diagnoses Not on filedocumented in this encounter Care Teams Willow Worker Relationship Specialty Start Date End Date Luis Fernando Magana PCP - General Family Practice 12/07/16 01/19/[address] [address] documented as of this encounter
--- OUTSIDE RECORDS SUMMARY | 2021-12-13 12:38 | XMS_ITS | Encounter Summary ---
:1980 Author Organization [place] Address [address] [place] [address] Care Team Providers Name Role Phone Luis Fernando Magana Primary Care Provider Reason for Visit Reason Comments Rule out rupture of membranes Auth/Cert Specialty Diagnoses / Procedures Referred By Contact Refer red To Contact tile setter Diagnoses Maternity*JEAN MARIE: 03/07/2017 Rupture premature rupture of membranes (PPROM) delivered, current hospitalization [facility] [address] [place] [address] Phone: Referral ID Status Reason Start Date Expiration Date Visits Requ ested Visits Authorized [id number] 12/09/2016 12/09/2017 1 1 Encounter Details Date Type Department Care Team Description 12/24/2016 Surgery [facility] CatieSo dubois Moraima, Section Immediate PeriOp Services Hysterectomy, Bilateral [address] [place] [address] [address] 300 Cystoscopy. Baby Boy born [phone] [place], [place] at 20:05 [id number] Surgery Details Date/Time [...] at Date Recorded Female 01/14/2020 10:57 AM SEAT NAILER documented as of this encounter Last Filed Vital Signs Vital Sign Reading Time Taken Comments Blood Pressure 112/68 12/24/2016 4:00 PM SEAT NAILER Pulse 101 12/19/2016 12:39 PM CDT Temperature 36.7 ??C (98 ??F) 12/24/2016 4:00 PM SEAT NAILER Respiratory Rate 18 12/24/2016 4:00 PM SEAT NAILER Oxygen Saturation - - Inhaled Oxygen Concentration - - Weight 83.9 kg (185 lb) 12/24/2016 6:25 AM SEAT NAILER Height 167.6 cm (5' 6) 12/07/2016 2:19 PM CDT Body Mass Index 29.68 12/07/2016 2:19 PM CDT documented in this encounter Discharge Summaries Petrona Barone DO - 12/27/2016 8:18 AM CST [facility] Discharge Summary Deann King Age: [...] uncomplicated. She was initially given a dilaudid INVESTIGATOR NARCOTICS, but was transitioned to PO medications on [...] Discharge Medications: Deann King Home Medication Instructions MAILE:[id number] Printed on:12/28/16 5434 Medication Information acetaminophen (TYLENOL) 325 MG tablet [...] machinery while on narcotics. Marleny Kang MD DIETARY AIDE COOK PGY-3 I agree with above discharge summary Petrona Barone DO FACOG Maternal Medicine Specialist Pager: [phone] NAILER documented in this encounter Discharge Instructions Discharge InstructionsErika Villalpando RN - 12/27/2016 7:51 AM SEAT NAILER Postop Instructions Activity ?? Do not lift [...] questions or concerns after you return home. NAILER documented in this encounter Medications at Time [...] Deann and John are on [facility]. John will be on WIC. At this time Deann has a car seat without a base for the baby. Deann mentioned she has a social work lecturer Francisco who helps them with the children. SW spoke with [facility] and they report that the family has been assigned to Francisco Silverman [phone] who is hospice case manager with CPS ongoing. (Francisco is out of office until 01/27/17, this television script writer left ). Deann has history of substance use disorder and has been sober for 8 years. She is followed closely by Dr. Alfredo and is on Subutex. Deann also struggles with anxiety and depression, at this time she reports she is doing well. I)SW confirmed with pt's [facility] [phone] that Deann is able to schedule one [...] up to visit. SW spoke with NICU systems manager and SW informed Deann that an exception would not be made. SW left GIOVANNA at bedside for Deann to sign so that this television script writer can coordinate care with [facility] social work lecturer Francisco. A)JACKIE spoke with MOB Deann via [...] Tinoco DO - 12/27/2016 5:20 AM CST [facility] Post- Note Name: Deann King [...] Routine management: Pain: S/p TAP blocks and INVESTIGATOR NARCOTICS. Scheduled ibuprofen and tylenol. PO oxycodone 20 [...] plan regarding pain management Marleny Kang MD Dietitian Teacher, PGY-3 Physician Attestation I, Petrona Fariae Barone, [...] regarding post c/hyst, opioid dependence, discharge instructions. NAILER Petrona Barone DO - 12/26/2016 6:42 AM CST [facility] Note Name: Deann King S: [...] Routine management: Pain: S/p TAP blocks and INVESTIGATOR NARCOTICS. Scheduled toradol, tylenol. PRN IV dilaudid and [...] and meeting postoperative goals Marleny Kang MD Dietitian Teacher, PGY-3 Physician Attestation IPetrona DO, saw and [...] coordinating care regarding postop care from claire/hyst. NAILER Marleny Kang MD - 12/25/2016 9:54 PM [...] oximetry, discussed with RN. Marleny Kang MD DIETARY AIDE COOK PGY-3 Marilu Munguia MD - 12/25/2016 9:38 PM CST I have seen and examined this patient this AM (note delayed). She is HD stable and tolerating her recovery to date. WE have discussed the implication of her surgery and she is aware that she will not be able to have additional children, but is grateful to be feeling well. Marilu Lam NAILER Barone, Petrona Escoto, DO - 12/25/2016 5:44 AM CST [facility] Note Name: Deann King S: [...] b/l I/O last 3 completed shifts: In: 91064 [I.V.:4800] Out: 5900 [Urine:900; Blood:5000] Hgb: Hemoglobin [...] 2. cares: Pain: S/p TAP blocks. Dilaudid INVESTIGATOR NARCOTICS with scheduled tylenol. Holding NSAIDs until Hgb [...] Hypothyroidism: - Continue synthroid. Marleny Kang MD Dietitian Teacher, PGY-3 Physician Attestation Petrona Powers DO, saw [...] tolerance. Labs stable. Toradol given now. Increase INVESTIGATOR NARCOTICS to 0.3mg continuous with 0.3-0.5mg bumps. Total [...] regarding post op pain, recovery plan, etc. NAILER Marleny Kang MD - 12/25/2016 2:56 AM CST [facility] Note Name: Deann King S: [...] b/l I/O last 3 completed shifts: In: 97091 [I.V.:4800] Out: 5900 [Urine:900; Blood:5000] Hgb: Hemoglobin [...] 2. cares: Pain: S/p TAP blocks. Dilaudid INVESTIGATOR NARCOTICS with scheduled tylenol, will increase demand dose. Holding NSAIDsuntil Hgb stabilizes. Continue home subutex for history of substance abuse. Supportive measures including warm packs, abdominal binder. GI: CLD, advance as tolerated. Scheduled bowel regimen ordered. : Duarte in place, strict Is/Os. Daily weights. Rh: Positive. Rubella: Non-immune, MMR ordered. Mood: Continue home effexor, wellbutrin. SW is following patient. Marleny Kagn MD Dietitian Teacher, PGY-3 12/25/2016, 2:28 AM NAILER Yareli Greenwood RN - 12/24/2016 8:35 PM [...] and fundal checks if uterus not removed. NAILER Petrona Barone DO - 12/24/2016 7:07 PM [...] Dr. Barone M staff and Dr. Nunez DIETARY AIDE COOK staff were notified. Delivery plan was confirmed [...] OR notified, proceed urgently. Marleny Kang MD DIETARY AIDE COOK PGY-3 MFM staff note: Called regarding change in clinical status for patient. Delivery indicated in the setting of pretermcervical dilation, hemorrhage with known posterior placenta previa/possible accreta and prolonged ROM. S/p BMZ nearly 2 weeks ago. Magnesium sulfate for AREA SECRETARY recommended. Type and cross with blood in OR. Petrona Barone DO FACOG Maternal Medicine Specialist Pager: [phone] NAILER Petrona Barone DO - 12/24/2016 10:18 AM [...] 140s, moderate variability, present accels, absent decels [place]: no contractions or irritability noted Imaging: See [...] bleeding. Plan c-hyst unless previa resolves with [facility] double staff. - Care conference [...] million. Needs follow up with GI or Music Instructor for treatment options . - Notify NICU [...] with Dr. Barone. Tatyana Walsh MD MPH DIETARY AIDE COOK, PGY3 Pager: [phone] 12/23/2016 10:04 AM Physician Attestation Petrona Powers [...] and/or coordinating care regarding PPROM, complete previa. NAILER Marleny Kang MD - 12/23/2016 11:56 PM [...] team of new symptoms. Marleny Kang MD DIETARY AIDE COOK PGY-3 NAILER Petrona Barone DO - 12/23/2016 10:04 AM [...] 130s, moderate variability, present accels, absent decels [place]: quiet, no contractions Assessment/Plan: Deann King is [...] - Needs follow up with GI or Music Instructor for treatment options . ? 5) History [...] with Dr. Barone. Tatyana Walsh MD MPH DIETARY AIDE COOK, PGY3 Pager: [phone] 12/23/2016 10:04 AM Physician Attestation I, Petrona [...] 6. Hepatitis C - s/p GI at [facility] in 2013, genotype 1a - normal [...] patient): December 22, 2016 Nora Mohamud MD Sql Data Analyst, DIETARY AIDE COOK Maternal- Medicine [email or web address] [phone] (Academic office) [phone] (Pager) NAILER Nora Mohamud MD - 12/21/2016 11:52 AM [...] 6. Hepatitis C - s/p GI at [facility] in 2013, genotype 1a, inpatient GI [...] patient): December 21, 2016 Nora Mohamud MD Sql Data Analyst, DIETARY AIDE COOK Maternal- Medicine [email or web address] [phone] (Academic office) [phone] (Pager) Apple Sen RD - 12/20/2016 11:41 [...] protocol. Apple Sen RD, LD Unit Pager: [phone] Lashawn Patel MD - 12/20/2016 8:59 AM [...] moderate variability, + accels, rare variable decels [place]: quiet, 0 ctx in 10 minutes Assessment/Plan: [...] bleeding. Plan c-hyst unless previa resolves with [facility] double staff. ? 3. FWB: [...] - Needs follow up with GI or Music Instructor for treatment options . ? 5. History [...] accels, absent decels - appropriate for GA. [place]: no contractions No intervention needed at this time. Tatyana Walsh MD MPH DIETARY AIDE COOK, PGY3 Pager: [phone] 12/19/2016 11:56 PM Lashawn Patel MD - [...] 130s, moderate variability, + accels, no decels [place]: quiet, 0 ctx in 10 minutes Assessment/Plan: [...] - Needs follow up with GI or Music Instructor for treatment options . ? 5. History [...] accels, absent decels - appropriate for GA. [place]: no contractions No intervention needed at this time. Tatyana Walsh MD MPH DIETARY AIDE COOK, PGY3 Pager: [phone] 12/19/2016 3:13 AM Lashawn Patel MD - [...] 130s, moderate variability, + accels, no decels [place]: quiet, 0 ctx in 10 minutes Assessment/Plan: [...] - Needs follow up with GI or Music Instructor for treatment options . ? 5. History [...] weeks from dose increase. Marleny Kang MD DIETARY AIDE COOK PGY-3 Physician Attestation ILashawn, saw this patient [...] from scratching area. Tatyana Walsh MD MPH DIETARY AIDE COOK, PGY3 Pager: [phone] 12/18/2016 12:08 AM Marleny Kang MD - 12/17/2016 12:35 PM CDT DIETARY AIDE COOK Progress Note Patient complaining of right ear pain. Notes some mild nasal stuffiness. Denies fever, postnasal drip, hearing changes, other signs of systemic illness including fevers. Denies history of ear infection. Gently cleans ears. Otoscopic exam without exudate or signs of infection, clear TM, no tenderness with motion. Will give debrox drops and monitor for symptoms. Marleny Kang MD DIETARY AIDE COOK PGY-3 Marleny Kang MD - 12/17/2016 11:29 AM CDT DIETARY AIDE COOK Progress Note Patient seen at bedside to [...] attempt at this time. Marleny Kang MD DIETARY AIDE COOK PGY-3 Lashawn Patel MD - 12/17/2016 6:56 [...] 150's, moderate variability, + accels, no decels [place]: Quiet Assessment/Plan: Deann King is a 36 [...] - Needs follow up with GI or Music Instructor for treatment options . ? 5. History [...] accels, absent decels - appropriate for GA. [place]: no contractions No intervention needed at this time. Tatyana Walsh MD MPH DIETARY AIDE COOK, PGY3 Pager: [phone] 12/17/2016 Lashawn Patel MD - 12/16/2016 6:54 [...] 140s, moderate variability, + accels, no decels [place]: 0 ctx in 10 minutes, quiet Assessment/Plan: [...] - Needs follow up with GI or Music Instructor for treatment options . ? 5. History [...] and acupuncture as needed. Marleny Kang MD DIETARY AIDE COOK PGY-3 Physician Attestation I, Lashawn Patel, saw [...] accels, absent decels - appropriate for GA. [place]: no contractions No intervention needed at this time. Tatyana Walsh MD MPH DIETARY AIDE COOK, PGY3 Pager: [phone] 12/16/2016 2:14 AM Petrona Barone DO - [...] moderate variability, present accelerations (10x10), absent decelerations [place]: No contractions noted 12/03 MR IMPRESSION: 1. [...] - Needs follow up with GI or Music Instructor for treatment options . ? 5. History [...] 150, moderate variability, present accelerations, absent decelerations [place]: No contractions noted 12/03 MR IMPRESSION: 1. [...] - Needs follow up with GI or Music Instructor for treatment options . ? 5. History [...] 12:05 PM 12/14/2016 Physician Attestation I, Petrona Baroen DO, saw and evaluated Deann Maycol King [...] patient, she is agreeable. Elizabeth Manzanares MD DIETARY AIDE COOK Resident PGY4 Pager [phone] 12/13/16 Echo Graham, [...] (nausea, vomiting) up until about a week IMMERSION METALCLEANER. Over the past 2 weeks she has [...] protocol. Echo Graham RD, LD Unit Pager: [phone] Nora Mohamud MD - 12/13/2016 8:50 AM [...] variable decels. Overall appropriate for gestational age. [place]: no contractions, quiet ? US (12/08): posterior/left [...] - Needs follow up with GI or Music Instructor for treatment options . ? 5. History [...] the treatment of hepatitis C with a precision thread grinder operator. A consultation was placed to discuss management [...] 6. Hepatitis C - s/p GI at [facility] in 2013, genotype 1a, inpatient GI [...] patient): December 13, 2016 Nora Mohamud MD Sql Data Analyst, DIETARY AIDE COOK Maternal- Medicine [email or web address] [phone] (Academic office) [phone] (Pager) Tatyana Walsh MD - 12/13/2016 3:23 AM CDT Strip Review (Not delayed due to patient care) FHT: Baseline 150s bpm, moderate variability, prolonged accels, absent decels - appropriate for GA. [place]: no contractions No intervention required at this time. Tatyana Walsh MD MPH DIETARY AIDE COOK, PGY3 Pager: [phone] 12/13/2016 3:23 AM Jess Bernstein LICSW - 12/12/2016 11:11 AM CDT Met with patient today and completed iodine application. Application faxed today. SW will continue [...] small decels. Overall appropriate for gestational age. [place]: no contractions, quiet ? US (12/08): posterior/left [...] - Needs follow up with GI or Music Instructor for treatment options . ? 5. History [...] 6. Hepatitis C - s/p GI at [facility] in 2013, genotype 1a - normal [...] patient): December 12, 2016 Nora Mohamud MD Sql Data Analyst, DIETARY AIDE COOK Maternal- Medicine [email or web address] [phone] (Academic office) [phone] (Pager) Tatyana Walsh MD - 12/12/2016 12:53 AM CDT Strip Review (Not delayed due to patient care, services at 2200 on 12/11/2016) FHT: Baseline 140-150s bpm, moderate variability, prolonged accels, absent decels - appropriate for GA. [place]: no contractions No intervention required at this time. Tatyana Walsh MD MPH DIETARY AIDE COOK, PGY3 Pager: [phone] 12/12/2016 12:53 AM Nora Kovacs, PT - [...] in agreement with plan of care Yes [facility] Story of My Life-[facility] TM 6 Clicks ?? 2016, Trustees of [facility], under license to [employer]. All rights reserved. 6 Clicks Short Forms Basic Mobility Inpatient Short Form [facility]??? 6 Clicks V.2 Basic Mobility Inpatient Short [...] small decels. Overall appropriate for gestational age. [place]: no contractions, quiet ? US (12/08): posterior/left [...] - Needs follow up with GI or Music Instructor for treatment options . ? 5. History [...] 6. Hepatitis C - s/p GI at [facility] in 2013, genotype 1a - normal [...] patient): December 11, 2016 Nora Mohamud MD Sql Data Analyst, DIETARY AIDE COOK Maternal- Medicine [email or web address] [phone] (Academic office) [phone] (Pager) Tatyana Walsh MD - 12/10/2016 11:23 PM CDT Strip Review FHT: Baseline 150s bpm, moderate variability, present accels, absent decels - appropriate for GA. [place]: no contractions No intervention needed at this time. Tatyana Walsh MD MPH DIETARY AIDE COOK, PGY3 Pager: [phone] 12/10/2016 11:24 PM Jess Bernstein STATE PATROL OFFICER - 12/10/2016 11:49 AM CDT [facility] MATERNAL CHILD HEALTH SOCIAL WORK PROGRESS NOTE DATA: Met with Deann to assess needs and to offer support. Patient is 36 year-old, Deann King. She and her , Rafal have been for two years. They live in subsidized housing in [place], [place]. Deann and Rafal know they are [...] defect and was in the NICU at [facility]. in November 2014 at 5 1/2 months [...] work. Rafal works at a factory in [place].Rafal does not have his line haul truck driver's license. Deann did not offer [...] Assistance, talamantes and food assistance benefits through [facility]. Baby Lopez will be added to these programs upon . Deann would like to switch her MA to [facility] and is asking for assistance with this. Encouraged Deann to contact [facility] Economic Assistance and ask to speak to a financial worker to see what is needed to make this change. Deann is not currently enrolled in [facility] but is interested in application for these benefits. JACKIE contacted [facility] today and message left for the Diesel Locomotive Engineer to see if it is possible to enroll Deann and her 4 year-old son in [facility] while Deann is hospitalized. Deann has only limited baby supplies-- some clothing and a swing. SW can provide assistance with a [employer] and diapers from [employer]. Deann has history of chemical abuse. She [...] this experience that having an ongoing social work lecturer can be helpful to her and to her children. She has been working with a SW at [facility] (Francisco [phone]) . Deann identifiesthis SW at very supportive. [...] results from her echo today from the hose coupling joiner. She informed us everything looked normal. She [...] small decels. Overall appropriate for gestational age. [place]: 1 contraction in 1 hour, not felt [...] - Needs follow up with GI or Music Instructor for treatment options . ? 5. History [...] 6. Hepatitis C - s/p GI at [facility] in 2013, genotype 1a - normal [...] patient): December 10, 2016 Nora Mohamud MD Sql Data Analyst, DIETARY AIDE COOK Maternal- Medicine [email or web address] [phone] (Academic office) [phone] (Pager) ?? Tatyana Walsh MD - 12/09/2016 10:46 PM CDT Strip Review FHT: Baseline 150s bpm, moderate variability, present accels, absent decels - appropriate for GA. [place]: 1 contractions/30 mins No intervention needed at this time. Hypothyroidism - TSH returned at normal range - no change to current synthroid needed. Depression - pending psych consult at this time. Continue home effexor. Tatyana Walsh MD MPH DIETARY AIDE COOK, PGY3 Pager: [phone] 12/09/2016 10:46 PM Nora Mohamud MD - [...] 130s, moderate variability, + accels, no decels [place]: quiet, 0 ctx in 10 minutes [place] [...] will follow-up on administration. Marleny Kang MD DIETARY AIDE COOK PGY-3 Maternal- Medicine Attending Addendum Late entry, [...] 6. Hepatitis C - s/p GI at [facility] in 2013, genotype 1a - normal [...] patient): December 09, 2016 Nora Mohamud MD Sql Data Analyst, DIETARY AIDE COOK Maternal- Medicine [email or web address] [phone] (Academic office) [phone] (Pager) Tatyana Walsh MD - 12/08/2016 7:58 PM CDT Strip Review FHT: Baseline 150s bpm, moderate variability, present accels, absent decels - appropriate for GA. [place]: no contractions, uterine irritability Tatyana Walsh MD MPH DIETARY AIDE COOK, PGY3 Pager: [phone] 12/08/2016 8:00 PM Italia Galarza, DO - [...] 140s, moderate variability, + accels, no decels [place]: 0 ctx in 10 minutes US (12/08): [...] and Tdap ordered today. Marleny Kang MD DIETARY AIDE COOK PGY-3 Attending Attestation: I agree with the residents note above. I spent 15 minutes total [id number] with this inpatient, and >50% of the [...] toxicity at this time. Rossana Barker MD Dietitian Teacher, PGY-3 12/08/2016, 2:23 AM documented in this encounter H&P Notes [place] MD - 12/07/2016 3:06 PM CDT [facility] OB History and Physical Deann [...] Negative Negative for C. trachomatis rRNA by mail teller mediated amplification. A negative result by mail teller mediated amplification does not preclude the presence of C. trachomatis infection because results are dependent on proper and adequate collection, absence of inhibitors, and sufficient rRNA to be detected. [facility] 08/29/2016 Negative Negative for N. gonorrhoeae rRNA by mail teller mediated amplification. A negative result by mail teller mediated amplification does not preclude the presence [...] BREAST SURGERY ABcess drained ??? SECTION ??? LUBRICATING SPECIALIST SURGERY ??? ORTHOPEDIC SURGERY ??? THORACIC [...] 150, moderate variability, no accelerations, no decelerations [place]: 0 contractions in 10 minutes Assessment Ms. [...] Sofía Cao APRN, CNP, 12/20/2016 4:09 PM [facility] Intensive Care Unit So Onofre PsyD [...] by Nora Mohamud MD at [facility] Antepartum. Patient is currentlyunemployed. She had been working for her mother's [employer] service, but had to stop due to [...] through lifestyle changes. She and her attend adventist-based meetings twice a week and no longer [...] outpatient follow-up with [facility] (call [phone] and inform electro mechanical assembler that you are or have recently had a baby) or contact insurance company for additional referrals.? Please contact [facility] if patient is in need of supports while on antepartum.?? She currently denies need for ongoing mental health support services. Provider routed the results of this consultation and treatment recommendations to referring provider. Provider reviewed the results of this consultation and treatment recommendations with referring provider via [employer] Referral to another professional/service is not indicated [...] time to herself. She asked if this television script writer could return tomorrow or later this afternoon, but this television script writer told her that she is booked and won't be able to accommodate except for this morning. Elementary School Tutor mentioned at the end that if she [...] time to herself. She asked if this television script writer could return tomorrow or later this afternoon, but this television script writer told her that she is booked and won't be able to accommodate except for this morning. Elementary School Tutor mentioned at the end that if she [...] this service's next availability). Madonna Carrasquillo APRN SCUBA INSTRUCTOR - 12/07/2016 5:00 PM CDTAssociated Order(s): NURSE [...] intraventricular hemorrhage, nutrition, growth and development, and senior living outcomes. Please feel free to call with any additional questions or concerns. Madonna Carrasquillo APRN, BANNERP 12/07/2016 6:51 PM Nurse Practitioner Service Intensive Care Unit [facility] Floor Time (min): 5 Face to Face [...] leveled and Zeroed, after labs were drawn, [place] was removed with approval of Dr Torres. Site held for 5 minutes and dressing placed to Left wrist, no bleeding or oozing noted at that time. Pt VSS, capnography started, pt's family updated via phone, will report to floor RN. NAILER Lisa Rubio RN - 12/25/2016 1:42 AM CST PACU to Inpatient Nursing Handoff Patient Deann King is a 36 year old female who speaks Turkmen. Procedure Procedure(s): Section Immediate Hysterectomy, Bilateral Salpingectomy [...] mg (total dose) last given at 0131 INVESTIGATOR NARCOTICS / epidural Yes. INVESTIGATOR NARCOTICS - hydromorphone (Dilaudid) Capnography Telemetry ECG Rhythm: [...] numbness;no tingling (12/24/16 0922) Equipment capnography and INVESTIGATOR NARCOTICS Other LDA IV Access Peripheral IV 12/22/16 [...] 12/25/2016 12:05 AM Rationale for Continued Use Anesthesia;/GI/LUBRICATING SPECIALIST Pelvic Procedure 12/25/2016 12:05 AM Urine Output [...] the antepartum RN. Lisa Rubio, RN ASCOM [id number] NAILER documented in this encounter Miscellaneous Notes Plan [...] questions and will d/c from inpatient PT. NAILER Associated attestation - Roxy Sr PT - 12/27/2016 6:21 PM SEAT NAILER Physical Therapy Discharge Summary Reason for therapy discharge: Discharged to home with outpatient therapy. Progress towards therapy goal(s). See goals on Care Plan in [facility] electronic health record for goal [...] leaving. F/U in clinic understood by patient. NAILER Plan of Care - Erika Villalpando RN - 12/27/2016 7:50 AM CST Referral made to [facility] for early dc. NAILER Plan of Care - Lucia Cotton RN [...] out which was taken to the nicu. NAILER Plan of Care - Hyacinth Wolf RN [...] more. Will continue with plan of Care. NAILER Note - Nikky Smith RNC - 12/26/2016 [...] to provide support. Nikky Smith, RNC, IBCLC NAILER Plan of Care - Lucia Cotton, RN [...] of without calling us to stand by. NAILER Plan of Care - Yessenia Julian RN [...] at bedside. Continue with plan of care. NAILER Provider Notification - Kristie Merida RN - 12/25/2016 9:01 PM CST Sepsis alert came up for pt. BP 91/63. HR of 115. SpO2 of 98. NAILER Plan of Care - Maria Antonia Hidalgo [...] and oral oxycodone given with initial relief. NAILER Provider Notification - Kristie Merida RN - 12/25/2016 7:48 PM CST Do you want pt to continue with IV Toradol and Dilaudid? FYI-pt is going outside to smoke. NAILER Plan of Care - Maria Antonia Hidalgo [...] Patient medicated during the shift with dilaudid INVESTIGATOR NARCOTICS for pain, which was discontinued at 13:50. [...] any other needs. Anticipate discharge on Friday. NAILER Plan of Care - Maria Antonia Hidalgo [...] one hour. Fixed and working well now NAILER Plan of Care - Khloe Elmore RN - 12/25/2016 5:50 AM CST Problem: ( Delivery) (Adult,Obstetrics,Pediatric) Goal: Signs and Symptoms of Listed Potential Problems Will be Absent, Minimized or Managed () Signs and symptoms of listed potential problems will be absent, minimized or managed by discharge/transition of care (reference ( Delivery) (Adult,Obstetrics,Pediatric) CPG). Outcome: No Change Pt's pain intolerable with INVESTIGATOR NARCOTICS @ 0.2mg dilaudid every 10 minutes, dose increased to 0.3mg every 10 minutes with max dose delivery 1.2mg/hr. Pt's pain remains intolerable, but getting better, she falls asleep between INVESTIGATOR NARCOTICS doses. NAILER Op Note - So Nunez MD - 12/24/2016 11:53 PM CST [facility] Full Operative Progress Note Surgery Date: 12/24/2016 Surgeon: So Nunez MD Assistants: Marilu Lam MD Clinic Office Manager/Onc staff Petrona Barone MD MFM staff Donita Barrow MD MFM fellow Margarita Talbert MD Clinic Office Manager/Onc fellow Marleny Kang MD PGY-3 aTtyana Govea MD PGY-3 Kayla Davidson MD PGY-2 Exceptional Circumstances Require an Bi Tri Operator Surgeon -Exceptional medical circumstances in this case required the participation of bus assistant surgeons Drs. Barone and Idania in [...] entirety of the procedure. Marleny Kang MD Dietitian Teacher, PGY-3 12/24/2016, 11:54 PM I was present and scrubbed throughout the procedure, I agree with the note above So Nunez MD NAILER Brief Op Note - Marleny Kang MD - 12/24/2016 11:23 PM CST [facility] Hysterectomy Brief Operative Note Surgery Date: 12/24/2016 Surgeon: So Nunez MD; Marilu Lam MD (intraoperative consult) Assistants: Petrona Barone MD [facility] staff Donita Barrow MD MFM fellow Margarita Talbert MD Clinic Office Manager/Onc fellow Marleny Kang MD PGY-3 Tatyana Govea [...] Disposition: Stable to PACU Marleny Kang MD DIETARY AIDE COOK PGY-3 NAILER Op Note - Marilu Lam MD - 12/24/2016 10:18 PM CST DATE OF SERVICE: 12/07/2016 Remainder of this note will be dictated by Dr. Nunez's service and for my portion is as follows: ATTENDING: Marilu Lam MD PUBLICITY MANAGER: Dr. Talbert, PGY 7 ANESTHESIA: GET COMPLICATIONS: [...] LAM MD MT: Name: DEANN KING Account: [id number] : 1980 Procedure Date: 12/07/2016 Document: [id number] NAILER Plan of Care - Juanis Henson RN [...] Kang and questions answered. SCD's were placed. [facility] saw patient prior to transfer to the OR. There was no new bleeding after the spec exam and prior to transfer to cart. While transferto OR patient felt blood coming out and only a small amount was seen on perineum. Dr. Barone was updated on patient status while transfer to OR. NAILER Plan of Care - Juanis Henson RN - 12/24/2016 6:04 PM CST Problem: Patient Care Overview Goal: Plan of Care/Patient Progress Review Outcome: No Change Continues to have cramping. Intensity remains the same. Continue to monitor. NAILER Plan of Care - Nakia Figueroa PTA - 12/24/2016 4:18 PM CST Problem: PT General Care Plan Goal: PT target date for goal attainment PT: patient displayed improvement with pain and prior to treatment rated neck pain 4/10 and after manual therapy decreased to 0/10. Founder PT Patient plan for discharge: home Current status: patient independent with all mobilities and HEP Barriers to return to prior living situation: none Recommendations for discharge: home would benefit from OP PT for management of neck and back Rationale for recommendations: decrease back and neck pain and improve posture. Entered by: aNkia Figueroa 12/24/2016 4:17 PM NAILER Plan of Care - Petrona Sharif RN [...] 140s, with moderate variability and without decelerations. NAILER Plan of Care - Annie Allen RN [...] labor, signs/symptoms of infection, or /maternal compromise. NAILER Plan of Care - Annie Allen RN [...] reassured after exam. Continue plan of care. NAILER Provider Notification - Annie Allen RN - 12/24/2016 12:02 AM CST 12/24/16 0002 Provider Notification Provider Name/Title Dr. Kang Method of Notification Electronic Page Request Evaluate - Remote Notification Reason Other (Comment) Pt requesting UA/UC for increased urine frequency. Thanks NAILER Provider Notification - Juanis Henson RN - [...] see patient when she returns to floor. NAILER Plan of Care - Juanis Henson RN [...] symptoms. RN will talk with Dr. Kang. NAILER Plan of Care - Juanis Henson RN [...] ate, in case she progresses into labor. NAILER Provider Notification - Leslie Mendoza RN - 12/23/2016 3:35 PM CST 12/23/16 0755 Provider Notification Provider Name/Title Dr. Walsh, Dr. Barone, Med student Method of Notification At Bedside Request Evaluate in Person Notification Reason Status Update NAILER Plan of Care - Leslie Mendoza RN [...] labor, signs/symptoms of infection, or /maternal compromise. NAILER Provider Notification - Leslie Mendoza RN - 12/23/2016 12:31 PM CST 12/23/16 0945 OB Patient Position Activity/Level of Assist Ambulating Patient went outside NAILER Provider Notification - Leslie Mendoza RN - 12/23/2016 12:31 PM CST 12/23/16 0720 OB Patient Position Maternal Position Standing Activity/Level of Assist Ambulating Patient went outside (to smoke) NAILER Provider Notification - Leslie Mendoza RN - 12/23/2016 7:58 AM CST Providers here for morning rounds and EFM strip review. Patient concerned about her oral pain on hertongue. There is a sore/ulceration there. Providers reminding patient to NOT self examine digitally her cervix. NAILER Plan of Care - Bonita Love RN [...] Will continue with current plan of care. NAILER Provider Notification - Bonita Love RN - 12/22/2016 8:02 PM SEAT NAILER 12/22/162000 Provider Notification Provider Name/Title Dr. Kang Method of Notification In Department Notification Reason Other (Comment) Patient reporting increased leaking of fluid today. Yellow colored on pads, no odor. Patient is not having any abdominal tenderness. Afebrile. Pt declines monitoring at this time. Dr. Kang updated. NAILER Plan of Care - Yareli Marsh RN [...] today. Will continue with plan of care. NAILER Plan of Care - Wendy Richter RN [...] VSS; EFM as charted. Continue expectant management. NAILER Plan of Care - Wendy Richter RN - 12/22/2016 3:13 AM CST Due to daylight savings time, labor calculations, ruptured membrane calculations and/or cervical exams times may be off by up to one hour from the actual time. A summary of the times/calcuations follows: None for this patient. NAILER Plan of Care - So Cheng RN [...] son. They have been working on some Musical Sneakers blankBullhornand watching movies. Pt continues to go outside [...] the bathroom for longer period of time. Founder PT Patient plan for discharge: home Current [...] to monitor and update providerwith any changes. [place] quiet and EFM mod variability, occasional accels, [...] No visitors last diana but worked on [employer] and did other crafts/games. No complaints today. [...] axillary as well as left upper abd. [place], raised areas, itches but also [place] per [...] postural exercises and relief with suboccipital release. Founder PT Patient plan for discharge: home Current [...] functional goals as expected D: Patient called television script writer into room at 1230 stating pain in her side after laughing at the cartoon onthe tv. Placed on EFM, no contractions noted accelerations and baby appropriate for gestational age.Patient called television script writer back into room at 1305 stating [...] of Care/Patient Progress Review Outcome: No Change [employer] Tutor went to assess vital signs. Pt. Stated that she had some reddish pink mucus in the toilet andsome pink fluid on the toilet tissue. Small quarter sized reddish pink mucus noted in the bottom of the toilet. Urine was yellow colored, no blood noted. [employer] Tutor placed and uterine monitors on thepatient. Patient [...] scant bloody mucus in toilet when voided. Trufant on toilet tissue. Dr. Cyr notified of [...] Pt declines at this time. With social work lecturer at this time. Pt declines a nicotine [...] within reach. Pt states understanding to put deputy controller light if any change in condition. Plan [...] Overview Goal: Plan of Care/Patient Progress Review Founder PT Patient plan for discharge: Home Current [...] within reach. Pt states understanding to put deputy controller light if any changes in condition. Plan [...] RN - 12/10/2016 5:32 PM CDT 12/10/16 5711 Provider Notification Provider Name/Title Dr. Kang Method [...] orintensity. Abdomen palpates soft, and toco didn't pick up truck driver any contractions. FHT: mod variability with accels, [...] RUQ pain. Plan of Care - Ellie Harrsi RN - 12/07/2016 11:06 PM CDT Problem: [...] Visit Wound Care Luis Camara, [address] [place] [address] (Wo rk) 01/21/2022 PRE VISIT Gastroenterology Landon Warren, *-*HEATHER Barriga RECORDS*-* MD Luis Fernando [address] [place] [address] [phone] (Wo rk) 01/21/2022 Office Visit Gastroenterology Juanis Levi [address] [place] [phone] Luis Fernando Miles MD [address] [place] [address] [phone] Pending Results Name Type Priority Associated Date/Time Diagnoses Transfuse red blood Nursing Transfusion STAT 1 02/24/2016 8:10 cell unit PM SEAT NAILER Transfuse red blood Nursing Transfusion STAT 1 02/24/2016 8:15 cell unit PM SEAT NAILER Transfuse plasma unit Nursing Transfusion Routine 12/24/2016 8:48 PM SEAT NAILER Transfuse red blood Nursing Transfusion STAT 1 02/24/2016 8:42 cell unit PM SEAT NAILER Transfuse red blood Nursing Transfusion STAT 1 02/24/2016 9:30 cell unit PM SEAT NAILER Transfuse red blood Nursing Transfusion STAT 1 02/24/2016 8:59 cell unit PM SEAT NAILER Transfuse red blood Nursing Transfusion STAT 1 02/24/2016 8:58 cell unit PM SEAT NAILER Transfuse red blood Nursing Transfusion STAT 1 02/24/2016 8:47 cell unit PM SEAT NAILER Placenta path order and Lab Routine 08/2016 8:05 indications PM SEAT NAILER Transfuse platelets Nursing Transfusion Routine 1 02/24/2016 9:19 unit PM SEAT NAILER Transfuse red blood Nursing Transfusion STAT 1 02/24/2016 10:15 cell unit PM SEAT NAILER Transfuse red blood Nursing Transfusion STAT 1 02/24/2016 10:50 cell unit PM SEAT NAILER Transfuse red blood Nursing Transfusion STAT 1 02/24/2016 9:56 cell unit PM SEAT NAILER Cryoprecipitate prepare Blood Bank Routine Chronic hepatitis 12/24/2016 10:59 order unit C without hepatic PM SEAT NAILER coma (H) Transfuse Nursing Transfusion Routine 12/25/19 17 11:10 cryoprecipitate unit PM SEAT NAILER Scheduled Referrals Name Type Priority Associated Diagnoses Order S chedule GASTROENTEROLOGY ADULT REF Referral Routine Chronic hepati tis C Ordered: 12/26/2016 CONSULT ONLY without hepatic coma (H) DENTAL REFERRAL Referral Routine Dental caries Ordered: documented as of this encounter Procedures Procedure Name Priority Date/Time Associated Comments Diagnosis CBC WITH PLATELETS Routine 12/26/2016 8:10 Chronic hepatitis R esults for this AM SEAT NAILER C without hepatic procedure are in coma (H) the results section. CBC WITH PLATELETS Timed 12/25/2016 2:04 Chronic hepatitis R esults for this PM SEAT NAILER C without hepatic procedure are in coma (H) the results section. INR Timed 12/25/2016 7:00 Chronic hepatitis Results for this AM SEAT NAILER C without hepatic procedure are in coma (H) the results section. PARTIAL THROMBOPLASTIN Timed 12/25/2016 7:00 Chronic hepatit is Results for this TIME AM SEAT NAILER C without hepatic procedure are in coma (H) the results section. MAGNESIUM Timed 12/25/2016 7:00 Chronic hepatitis Results for this AM SEAT NAILER C without hepatic procedure are in coma (H) the results section. FIBRINOGEN ACTIVITY Timed 12/25/2016 7:00 Chronic hepatitis Results for this AM SEAT NAILER C without hepatic procedure are in coma (H) the results section. BASIC METABOLIC PANEL Timed 12/25/2016 7:00 Chronic hepatiti s Results for this AM SEAT NAILER C without hepatic procedure are in coma (H) the results section. CBC WITH PLATELETS Timed 12/25/2016 7:00 Chronic hepatitis R esults for this AM SEAT NAILER C without hepatic procedure are in coma (H) the results section. INR Routine 12/25/2016 12:54 Chronic hepatitis Result s for this AM SEAT NAILER C without hepatic procedure are in coma (H) the results section. PARTIAL THROMBOPLASTIN Routine 12/25/2016 12:54 Chronic hepati tis Results for this TIME AM SEAT NAILER C without hepatic procedure are in coma (H) the results section. FIBRINOGEN ACTIVITY Routine 12/25/2016 12:54 Chronic hepatitis Results for this AM SEAT NAILER C without hepatic procedure are in coma (H) the results section. BASIC METABOLIC PANEL Routine 12/25/2016 12:54 Chronic hepatit is Results for this AM SEAT NAILER C without hepatic procedure are in coma (H) the results section. CBC WITH PLATELETS Routine 12/25/2016 12:54 Chronic hepatitis Results for this AM SEAT NAILER C without hepatic procedure are in coma (H) the results section. XR ABDOMEN PORT 1 VIEW STAT 12/24/2016 11:10 R esults for this PM SEAT NAILER procedure are i n the results section. TRANSFUSE Routine 12/24/2016 11:10 CRYOPRECIPITATE UNIT PM SEAT NAILER BLOOD COMPONENT Routine 12/24/2016 10:59 Chronic hepatitis Res ults for this PM SEAT NAILER C without hepatic procedure are in coma (H) the results section. PREPARE CRYOPRECIPITATE Routine 12/24/2016 10:59 Chronic hepat itis (SINGLE UNIT) PM SEAT NAILER C without hepatic coma (H) TRANSFUSE RED BLOOD CELL STAT 12/24/2016 10:50 UNIT PM SEAT NAILER ARTERIAL PANEL Routine 12/24/2016 10:45 Chronic hepatitis Resu lts for this PM SEAT NAILER C without hepatic procedure are in coma (H) the results section. TRANSFUSE RED BLOOD CELL STAT 12/24/2016 10:15 UNIT PM SEAT NAILER SURGICAL PATHOLOGY EXAM Routine 12/24/2016 10:13 Results for this PM SEAT NAILER procedure are i n the results section. TRANSFUSE RED BLOOD CELL STAT 12/24/2016 9:56 UNIT PM SEAT NAILER ARTERIAL PANEL Routine 12/24/2016 9:50 Chronic hepatitis Resul ts for this PM SEAT NAILER C without hepatic procedure are in coma (H) the results section. INR Routine 12/24/2016 9:50 Chronic hepatitis Results for this PM SEAT NAILER C without hepatic procedure are in coma (H) the results section. PARTIAL THROMBOPLASTIN Routine 12/24/2016 9:50 Chronic hepatit is Results for this TIME PM SEAT NAILER C without hepatic procedure are in coma (H) the results section. FIBRINOGEN ACTIVITY Routine 12/24/2016 9:50 Chronic hepatitis Results for this PM SEAT NAILER C without hepatic procedure are in coma (H) the results section. CBC WITH PLATELETS Routine 12/24/2016 9:50 Chronic hepatitis R esults for this PM SEAT NAILER C without hepatic procedure are in coma (H) the results section. TRANSFUSE RED BLOOD CELL STAT 12/24/2016 9:30 UNIT PM SEAT NAILER ARTERIAL PANEL Routine 12/24/2016 9:20 Chronic hepatitis Resul ts for this PM SEAT NAILER C without hepatic procedure are in coma (H) the results section. TRANSFUSE PLATELETS UNIT Routine 12/24/2016 9:19 PM SEAT NAILER TRANSFUSE RED BLOOD CELL STAT 12/24/2016 8:59 UNIT PM SEAT NAILER TRANSFUSE RED BLOOD CELL STAT 12/24/2016 8:58 UNIT PM SEAT NAILER TRANSFUSE PLASMA UNIT Routine 12/24/2016 8:48 PM SEAT NAILER TRANSFUSE RED BLOOD CELL STAT 12/24/2016 8:47 UNIT PM SEAT NAILER BLOOD COMPONENT Routine 12/24/2016 8:45 Chronic hepatitis Resu lts for this PM SEAT NAILER C without hepatic procedure are in coma (H) the results section. BLOOD COMPONENT Routine 12/24/2016 8:45 Chronic hepatitis Resu lts for this PM SEAT NAILER C without hepatic procedure are in coma (H) the results section. PREPARE PLATELETS ORDER Routine 12/24/2016 8:45 Chronic hepati tis Results for this UNIT PM SEAT NAILER C without hepatic procedure are in coma (H) the results section. ARTERIAL PANEL Routine 12/24/2016 8:44 Chronic hepatitis Resul ts for this PM SEAT NAILER C without hepatic procedure are in coma (H) the results section. INR Routine 12/24/2016 8:44 Chronic hepatitis Results for this PM SEAT NAILER C without hepatic procedure are in coma (H) the results section. PARTIAL THROMBOPLASTIN Routine 12/24/2016 8:44 Chronic hepatit is Results for this TIME PM SEAT NAILER C without hepatic procedure are in coma (H) the results section. FIBRINOGEN ACTIVITY Routine 12/24/2016 8:44 Chronic hepatitis Results for this PM SEAT NAILER C without hepatic procedure are in coma (H) the results section. CBC WITH PLATELETS Routine 12/24/2016 8:44 Chronic hepatitis R esults for this PM SEAT NAILER C without hepatic procedure are in coma (H) the results section. TRANSFUSE RED BLOOD CELL STAT 12/24/2016 8:42 UNIT PM SEAT NAILER ARTERIAL PANEL Routine 12/24/2016 8:25 Chronic hepatitis Resul ts for this PM SEAT NAILER C without hepatic procedure are in coma (H) the results section. PLACENTA PATH ORDER AND Routine 12/24/2016 8:05 INDICATIONS PM SEAT NAILER BLOOD COMPONENT Routine 12/24/2016 7:25 Chronic hepatitis Resu lts for this PM SEAT NAILER C without hepatic procedure are in coma (H) the results section. BLOOD COMPONENT Routine 12/24/2016 7:25 Chronic hepatitis Resu lts for this PM SEAT NAILER C without hepatic procedure are in coma (H) the results section. BLOOD COMPONENT Routine 12/24/2016 7:25 Chronic hepatitis Resu lts for this PM SEAT NAILER C without hepatic procedure are in coma (H) the results section. BLOOD COMPONENT Routine 12/24/2016 7:25 Chronic hepatitis Resu lts for this PM SEAT NAILER C without hepatic procedure are in coma (H) the results section. BLOOD COMPONENT Routine 12/24/2016 7:25 Chronic hepatitis Resu lts for this PM SEAT NAILER C without hepatic procedure are in coma (H) the results section. BLOOD COMPONENT Routine 12/24/2016 7:25 Chronic hepatitis Resu lts for this PM SEAT NAILER C without hepatic procedure are in coma (H) the results section. BLOOD COMPONENT Routine 12/24/2016 7:25 Chronic hepatitis Resu lts for this PM SEAT NAILER C without hepatic procedure are in coma (H) the results section. BLOOD COMPONENT Routine 12/24/2016 7:25 Chronic hepatitis Resu lts for this PM SEAT NAILER C without hepatic procedure are in coma (H) the results section. PREPARE PLASMA (UNIT) Routine 12/24/2016 7:25 Chronic hepatiti s Results for this PM SEAT NAILER C without hepatic procedure are in coma (H) the results section. HYSTERECTOMY, FOLLOWING 12/24/2016 7:24 SECTION PM SEAT NAILER CBC WITH PLATELETS & STAT 12/24/2016 7:06 Chronic hepatitis Results for this DIFFERENTIAL PM SEAT NAILER C without hepatic procedure are in coma (H) the results section. ROUTINE UA WITH Routine 12/24/2016 7:50 Chronic hepatitis Resu lts for this MICROSCOPIC REFLEX TO AM SEAT NAILER C without hepatic p rocedure are in CULTURE coma (H) the results section. URINE CULTURE Routine 12/24/2016 7:50 Chronic hepatitis Result s for this AM SEAT NAILER C without hepatic procedure are in coma (H) the results section. WET PREPARATION Routine 12/23/2016 11:53 Chronic hepatitis Res ults for this PM SEAT NAILER C without hepatic procedure are in coma (H) the results section. MFM BPP SINGLE Routine 12/23/2016 8:37 Results fo r this AM SEAT NAILER procedure are i n the results section. BLOOD COMPONENT Routine 12/23/2016 6:54 Chronic hepatitis Resu lts for this AM SEAT NAILER C without hepatic procedure are in coma (H) the results section. BLOOD COMPONENT Routine 12/23/2016 6:54 Chronic hepatitis Resu lts for this AM SEAT NAILER C without hepatic procedure are in coma (H) the results section. BLOOD COMPONENT Routine 12/23/2016 6:54 Chronic hepatitis Resu lts for this AM SEAT NAILER C without hepatic procedure are in coma (H) the results section. BLOOD COMPONENT Routine 12/23/2016 6:54 Chronic hepatitis Resu lts for this AM SEAT NAILER C without hepatic procedure are in coma (H) the results section. BLOOD COMPONENT Routine 12/23/2016 6:54 Chronic hepatitis Resu lts for this AM SEAT NAILER C without hepatic procedure are in coma (H) the results section. BLOOD COMPONENT Routine 12/23/2016 6:54 Chronic hepatitis Resu lts for this AM SEAT NAILER C without hepatic procedure are in coma (H) the results section. BLOOD COMPONENT Routine 12/23/2016 6:54 Chronic hepatitis Resu lts for this AM SEAT NAILER C without hepatic procedure are in coma (H) the results section. BLOOD COMPONENT Routine 12/23/2016 6:54 Chronic hepatitis Resu lts for this AM SEAT NAILER C without hepatic procedure are in coma (H) the results section. BLOOD COMPONENT Routine 12/23/2016 6:54 Chronic hepatitis Resu lts for this AM SEAT NAILER C without hepatic procedure are in coma (H) the results section. BLOOD COMPONENT Routine 12/23/2016 6:54 Chronic hepatitis Resu lts for this AM SEAT NAILER C without hepatic procedure are in coma (H) the results section. BLOOD COMPONENT Routine 12/23/2016 6:54 Chronic hepatitis Resu lts for this AM SEAT NAILER C without hepatic procedure are in coma (H) the results section. BLOOD COMPONENT Routine 12/23/2016 6:54 Chronic hepatitis Resu lts for this AM SEAT NAILER C without hepatic procedure are in coma (H) the results section. ABO/RH TYPE AND SCREEN Routine 12/23/2016 6:54 Chronic hepatit is Results for this AM SEAT NAILER C without hepatic procedure are in coma (H) the results section. ABO/RH TYPE AND SCREEN Timed 12/20/2016 10:48 Chronic hepati tis Results for this AM CDT C without hepatic procedure are in coma (H) the results section. MFM BPP SINGLE Routine 12/19/2016 8:46 Results fo r this AM CDT procedure are i n the results section. ABO/RH TYPE AND SCREEN Timed 12/17/2016 6:54 Chronic hepatit is Results for this AM CDT C without hepatic procedure are in coma (H) the results section. [facility] OB LIMITED Routine 12/16/2016 9:24 Results for [...] procedure are i n the results section. [facility] OB LIMITED Routine 12/12/2016 8:36 Results for this SINGLE/MULTIPLE AM CDT procedure ar e in the results section. ABO/RH TYPE AND SCREEN Timed 12/11/2016 9:05 Re sults for this AM CDT procedure are i n the results section. ECHO COMPLETE* Routine 12/10/2016 9:05 Resu lts for this AM CDT procedure are i n the results section. [facility] US COMPREHENSIVE Routine 12/08/2016 9:52 [...] (ABNORMAL) CBC with platelets (12/26/2016 8:10 AM SEAT NAILER) [facility] Method Time Signature WBC 8.5 4.0 [...] specimen 12/26/2016 8:10 AM 017 8:12 (specimen) SEAT NAILER AM SEAT NAILER Kayla Davidson MD LAB - BLOOD ORDERABLES Performing Organization Address City/State/ZIP Code Phon e Number [facility] [address] [place], [place] [address] [place] [address] (ABNORMAL) CBC with platelets (12/25/2016 2:04 PM SEAT NAILER) [facility] Method Time Signature WBC 9.7 4.0 - [...] specimen 12/25/2016 2:04 PM 017 2:08 (specimen) SEAT NAILER PM SEAT NAILER So Nunez MD LAB - BLOOD ORDERABLES Performing Organization Address City/State/ZIP Code Phon e Number [address] (ABNORMAL) Magnesium (12/25/2016 7:00 AM SEAT NAILER) P athologist Signature Magnesium 1.5 (L) 1.6 - 2.3 12/25/2016 [facility] mg/dL 8:07 AM [facility] Specimen Anatomical Collection Method Collection Time Receive d Time (Source) Location / / Volume Laterality Blood specimen 12/25/2016 7:00 AM 017 7:06 (specimen) SEAT NAILER AM SEAT NAILER So Nunez MD LAB - BLOOD ORDERABLES Performing Organization Address City/State/ZIP Code Phon e Number [address] (ABNORMAL) Basic metabolic panel (12/25/2016 7:00 AM SEAT NAILER) Patholo gist Method Time Signature Sodium 139 [...] [facility] GFR Estimate >90 >60 12/25/2016 RE[facility] OF mL/min/1.7 8:[address] Comment: Non GFR Calc GFR Estimate If >90 >60 mL/min/1.7m2 12/25/2016 8:13 A M [facility] Black [facility] Comment: GFR Calc Calcium 7.6 (L) 8.5 - 10.1 mg/dL 12/25/2016 8:13 AM [facility] Specimen Anatomical Collection Method Collection Time Receive d Time (Source) Location / / Volume Laterality Blood specimen 12/25/2016 7:00 AM 017 7:07 (specimen) SEAT NAILER AM SEAT NAILER Petrona Barone DO LAB - BLOOD ORDERABLES Performing Organization Address City/State/ZIP Code Phon e Number [facility] [address] [place] [address] [facility] Fibrinogen activity (12/25/2016 7:00 AM SEAT NAILER) P athologist Signature Fibrinogen 398 200 - 420 12/25/2016 [facility] mg/dL 7:58 AM [facility] Specimen Anatomical Collection Method Collection Time Receive d Time (Source) Location / / Volume Laterality Blood specimen 12/25/2016 7:00 AM 017 7:07 (specimen) SEAT NAILER AM SEAT NAILER Petrona Barone DO LAB - BLOOD ORDERABLES Performing Organization Address City/State/ZIP Code Phon e Number [address] [address] [facility] Partial thromboplastin time (12/25/2016 7:00 AM SEAT NAILER) P athologist Signature PTT 28 22 - 37 sec 12/25/2016 [facility] 7:58 AM [facility] Specimen Anatomical Collection Method Collection Time Receive d Time (Source) Location / / Volume Laterality Blood specimen 12/25/2016 7:00 AM 017 7:07 (specimen) SEAT NAILER AM SEAT NAILER Petrona Barone DO LAB - BLOOD ORDERABLES Performing Organization Address City/[facility]/ZIP Code Phon e Number [address] [address] [facility] INR (12/25/2016 7:00 AM SEAT NAILER) P athologist Signature INR 1.06 0.86 - 1.14 12/25/2016 [facility] 7:58 AM [facility] Specimen Anatomical Collection Method Collection Time Receive d Time (Source) Location / / Volume Laterality Blood specimen 12/25/2016 7:00 AM 017 7:07 (specimen) SEAT NAILER AM SEAT NAILER Petrona Tigist Barone DO LAB - BLOOD ORDERABLES Performing Organization Address City/[facility]/ZIP Code Phon e Number [address] [address] [facility] (ABNORMAL) CBC with platelets (12/25/2016 7:00 AM SEAT NAILER) Patholo gist Method Time Signature WBC 12.7 (H) 4.0 - 11.0 12/25/2016 [facility] 10e9/L 7:51 AM [facility] RBC Count 4.05 3.8 - 5.2 12/25/2016 [facility] 10e12/L 7:51 AM [facility] Hemoglobin 11.5 (L) 11.7 - 12/25/2016 [facility] 15.7 g/dL 7:51 AM [facility] [...] specimen 12/25/2016 7:00 AM 017 7:07 (specimen) SEAT NAILER AM SEAT NAILER Petrona Barone DO LAB - BLOOD ORDERABLES Performing Organization Address City/[facility]/ZIP [facility] Phon e Number [address] Partial thromboplastin time (12/25/2016 12:54 AM SEAT NAILER) P athologist Signature PTT 28 22 - 37 sec 12/25/2016 [facility] 1:52 AM [facility] Specimen Anatomical Collection Method Collection Time Receive d Time (Source) Location / / Volume Laterality Blood specimen 12/25/2016 12:54 7 1:10 (specimen) AM SEAT NAILER AM SEAT NAILER Nora Torres MD LAB - BLOOD ORDERABLES Performing Organization Address City/[facility]/ZIP Code Phon e Number [address] [address] [facility] INR (12/25/2016 12:54 AM SEAT NAILER) P athologist Signature INR 1.11 0.86 - 1.14 12/25/2016 [facility] 1:52 AM [facility] Specimen Anatomical Collection Method Collection Time Receive d Time (Source) Location / / Volume Laterality Blood specimen 12/25/2016 12:54 7 1:10 (specimen) AM SEAT NAILER AM SEAT NAILER Nora Torres MD LAB - BLOOD ORDERABLES Performing Organization Address City/State/ZIP Code Phon e Number [address] [address] [facility] Fibrinogen activity (12/25/2016 12:54 AM SEAT NAILER) P athologist Signature Fibrinogen 338 200 - 420 12/25/2016 [facility] mg/dL 1:[address] [facility] Specimen Anatomical Collection Method Collection Time Receive d Time (Source) Location / / Volume Laterality Blood specimen 12/25/2016 12:54 201 7 1:10 (specimen) AM SEAT NAILER AM SEAT NAILER Nora Torres MD LAB - BLOOD ORDERABLES Performing Organization Address City/State/ZIP Code Phon e Number [address] [address] [facility] (ABNORMAL) CBC with platelets (12/25/2016 12:54 AM SEAT NAILER) Analysis Performed At Patho logist Time Signature [...] specimen 12/25/2016 12:54 7 1:10 (specimen) AM SEAT NAILER AM SEAT NAILER Nora Torres MD LAB - BLOOD ORDERABLES Performing Organization Address City/State/ZIP Code Phon e Number [facility] [address] [place] [address] [facility] (ABNORMAL) Basic metabolic panel (12/25/2016 12:54 AM SEAT NAILER) Analysis Performed At Patho logist Time Signature [...] >60 12/25/2016 [facility] mL/min/1.7 1:[address] Comment: Non GFR Calc GFR Estimate If >90 >60 mL/min/1.7m2 12/25/2016 1:49 A M [facility] Black [facility] Comment: GFR Calc Calcium 8.0 (L) 8.5 - 10.1 mg/dL 12/25/2016 1:49 AM [facility] Specimen Anatomical Collection Method Collection Time Receive d Time (Source) Location / / Volume Laterality Blood specimen 12/25/2016 12:54 7 1:10 (specimen) AM SEAT NAILER AM SEAT NAILER Nora Torres MD LAB - BLOOD ORDERABLES Performing Organization Address City/State/ZIP Code Phon e Number [facility] [address] [place] [address] [facility] XR Abdomen Port 1 View (12/24/2016 11:10 PM SEAT NAILER) Anatomical Region Laterality Modality Abdomen/Pelvis Computed Radiography Specimen (Source) Anatomical Location Collection Method / Collectio n Time Received Time / Laterality Volume Impressions 12/24/2016 11:52 PM SEAT NAILER IMPRESSION: No radiopaque foreign objects are present in the visualized portion of the abdomen and pe lvis. CHEIKH COURTNEY MD Narrative 12/24/2016 11:52 PM SEAT NAILER ABDOMEN SINGLE VIEW ??12/24/2016 11:10 PM HISTORY: [...] ORDER JEFFERY Blood component (12/24/2016 10:59 PM SEAT NAILER) Component Value Ref Test Analysis Performed At [facility] gist Range Method Time Signature Unit Number [id number] 12/24/2016 [facility] 11:06 PM [facility] Blood 5 cryoprecipitate 12/24/2016 [facility] Component units pooled 11:06 PM [place] MEDICAL Type [facility] Division 00 12/24/2016 [facility] Number 11:06 PM [facility] Status of Released to care 12/24/2016 [facility] O F Unit unit 11:58 PM [facility] Blood [id number] 12/24/2016 [facility] Product Code 11:06 PM [facility] Unit Status ISS [facility] Specimen Anatomical Collection Method Collection Time Receive d Time (Source) Location / / Volume Laterality 12/24/2016 10:59 12/24/2016 PM SEAT NAILER 11:04 PM SEAT NAILER Nora Leyva MD LABORATORY Performing Organization Address City/State/ZIP Code Phon e Number [facility] [address] [place] [address] [place] [id number] [place] [address] [facility] (ABNORMAL) Arterial Panel (12/24/2016 10:45 PM SEAT NAILER) Patholo gist Method Time Signature pH Arterial 7.35 7.35 - 12/24/2016 [facility] 7.45 pH 10:57 PM [facility] pCO2 Arterial 36 35 - 45 mm 12/24/2016 [facility] Hg 10:57 PM [facility] pO2 Arterial 207 (H) 80 - 105 12/24/2016 [facility] mm Hg 10:57 PM [facility] Bicarbonate 20 (L) 21 - 28 12/24/2016 [facility] Arterial mmol/L 10:57 PM [facility] Base Deficit Art 4.9 mmol/L 12/24/2016 [facility] O F 10:57 PM [facility] Comment: Reference range: -9.0 to 1.8 FIO2 50 12/24/2016 10:50 PM [facility] Sodium 135 133 - 144 12/24/2016 10:57 PM [facility] mmol/L [facility] Potassium 4.0 3.4 - 5.3 12/24/2016 10:57 PM [facility] mmol/L [facility] Hemoglobin 10.1 (L) 11.7 - 15.7 12/24/2016 10:57 PM [facility] OF [place] g/dL [facility] Glucose 161 (H) 70 - 99 mg/dL 12/24/2016 10:57 PM [facility] Calcium Ionized 5.1 4.4 - 5.2 12/24/2016 10:57 PM [facility] Whole Blood mg/dL [facility] Specimen Anatomical Collection Method Collection Time Receive d Time (Source) Location / / Volume Laterality 12/24/2016 10:45 12/24/2016 PM SEAT NAILER 10:49 PM SEAT NAILER Nora Leyva MD LAB - BLOOD ORDERABLES Performing Organization Address City/State/ZIP Code Phon e Number [address] [address] [facility] Surgical pathology exam (12/24/2016 10:13 PM SEAT NAILER) Component Value Ref Test Analysis Performed Pathologis t Range Method Time At Signature Copath Patient Name: DEANN KING Report MR#: [id number] Specimen #: [id number] Collected: 12/24/2016 Received: 12/25/2016 Reported: 12/31/2016 10:03 [...] Electronically signed out by: Moshe Isaac M.D., [facility] CLINICAL HISTORY: 36-year-old admitted at 27-1/7 weeks' [...] fundus to cervix, 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 [...] endometrium is irregular-shaped. No masses are identified. Production Aide sections are submitted. Summary of Sections: A1 [...] fallopian tube wi th a pin-point lumen. Production Aide sections are submitted in ca ssette B1. [...] fallopian tube wi th a pin-point lumen. Production Aide sections are submitted in ca ssette C1. [...] measuring 2.0 x 2.0 x 1.2 cm. Production Aide sections are submitted as follows: Summary of [...] The section submitted as possible thrombus at [facility] shows a remote retroplacental hematoma. CPT Codes: A: 00200-WJ2, 41444-BHC, 10170-XEQ B: 41427-JI2 C: 65249-SR4 D: 53722-LQ7 TESTING LAB LOCATION: [facility], [address] [place] [id number] [facility]LECTION SITE: [facility] Location[facility] (B) Specimen (Source) Anatomical Collection Method Collection Time Re ceived Time Location / / Volume Laterality Tissue specimen UTERUS AND CERVIX, 12/24/2016 10:13 (specimen) CS / Unknown PM SEAT NAILER Tissue specimen STRUCTURE OF RIGHT 12/24/2016 10:14 (specimen) FALLOPIAN TUBE / PM SEAT NAILER Unknown Tissue specimen STRUCTURE OF LEFT 12/24/2016 10:14 (specimen) FALLOPIAN TUBE / PM SEAT NAILER Unknown So Nunez MD LAB - BEAKER AP Performing Organization Address City/[facility] Code Phon e Number [place] Partial thromboplastin time (12/24/2016 9:50 PM SEAT NAILER) athologist Signature PTT 33 22 - 37 sec 12/24/2016 [facility] 10:05 PM [facility] Specimen Anatomical Collection Method Collection Time Receive d Time (Source) Location / / Volume Laterality 12/24/2016 9:50 PM 7 9:52 SEAT NAILER PM SEAT NAILER Nora Leyva MD LAB - BLOOD ORDERABLES Performing Organization Address City/[facility]/ZIP Code Phon e Number [id number] [place] [address] (ABNORMAL) INR (12/24/2016 9:50 PM SEAT NAILER) athologist Signature INR 1.50 (H) 0.86 - 1.14 12/24/2016 [facility] 10:05 PM [facility] Specimen Anatomical Collection Method Collection Time Receive d Time (Source) Location / / Volume Laterality 12/24/2016 9:50 PM 7 9:52 SEAT NAILER PM SEAT NAILER Nora Leyva MD LAB - BLOOD ORDERABLES Performing Organization Address City/[facility]/ZIP Code Phon e Number [place] [phone] [facility] (ABNORMAL) Fibrinogen activity (12/24/2016 9:50 PM SEAT NAILER) P athologist Signature Fibrinogen 189 (L) 200 - 420 12/24/2016 [facility] mg/dL 10:05 PM [facility] Specimen Anatomical Collection Method Collection Time Receive d Time (Source) Location / / Volume Laterality 12/24/2016 9:50 PM 7 9:52 SEAT NAILER PM SEAT NAILER Nora Leyva MD LAB - BLOOD ORDERABLES Performing Organization Address City/[facility]/ZIP Code Phon e Number [address] [address] [facility] (ABNORMAL) CBC with platelets (12/24/2016 9:50 PM SEAT NAILER) Patholo gist Method Time Signature WBC 10.3 4.0 - 11.0 12/24/2016 [facility] 10e9/L 9:58 PM [facility] RBC Count 2.61 (L) 3.8 - 5.2 12/24/2016 [facility] 10e12/L 9:58 PM [facility] Hemoglobin 7.5 (L) 11.7 - 12/24/2016 [facility] 15.7 g/dL 9:58 PM [facility] Hematocrit 23.1 (L) 35.0 - 12/24/2016 [...] Volume Laterality 12/24/2016 9:50 PM 7 9:52 SEAT NAILER PM SEAT NAILER Nora Leyva MD LAB - BLOOD ORDERABLES Performing Organization Address City/State/ZIP Code Phon e Number [facility] [address] [place] [address] [facility] (ABNORMAL) Arterial Panel (12/24/2016 9:50 PM [facility] Method Time Signature pH Arterial 7.31 [...] to 1.8 FIO2 50 12/24/2016 9:54 PM [facility] Sodium 137 133 - 144 12/24/2016 9:58 PM [facility] mmol/L [facility] Potassium 3.7 3.4 - 5.3 12/24/2016 9:58 PM [facility] mmol/L [facility] Hemoglobin 7.5 (L) 11.7 - 15.7 12/24/2016 9:58 PM [facility] [place] g/dL [facility] Glucose 155 (H) 70 - 99 mg/dL 12/24/2016 9:58 PM [facility] Calcium Ionized 4.6 4.4 - 5.2 12/24/2016 9:58 PM [facility] OF [place] Whole Blood mg/dL [facility] Specimen Anatomical Collection Method Collection Time Receive d Time (Source) Location / / Volume Laterality 12/24/2016 9:50 PM 7 9:52 SEAT NAILER PM SEAT NAILER Nora Leyva MD LAB - BLOOD ORDERABLES Performing Organization Address City/State/ZIP Code Phon e Number [facility] [address] [place] [address] [facility] (ABNORMAL) Arterial Panel (12/24/2016 9:20 PM [facility]) [facility] Method Time Signature pH Arterial 7.31 (L) 7.35 - 12/24/2016 [facility] 7.45 pH 9:28 PM [facility] pCO2 Arterial 40 35 - 45 12/24/2016 [facility] mm Hg 9:28 PM [facility] pO2 Arterial 191 (H) 80 - 105 12/24/2016 [facility] OF mm Hg 9:28 PM [facility] Bicarbonate 20 (L) 21 - 28 12/24/2016 [facility] Arterial mmol/L 9:28 PM [facility] Base Deficit Art 5.8 mmol/L 12/24/2016 [facility]ITY O F 9:28 PM [facility] Comment: Reference range: -9.0 to 1.8 FIO2 50% 12/24/2016 9:26 PM [facility] Sodium 136 133 - 144 12/24/2016 9:28 PM [facility] mmol/L [facility] Potassium 3.9 3.4 - 5.3 12/24/2016 9:28 PM [facility] mmol/L [facility] Hemoglobin 8.7 (L) 11.7 - 15.7 12/24/2016 9:28 PM [facility] [place] g/dL [facility] Glucose 165 (H) 70 - 99 mg/dL 12/24/2016 9:28 PM [facility] Calcium Ionized 4.4 4.4 - 5.2 12/24/2016 9:28 PM [facility] OF [place] Whole Blood mg/dL [facility] Specimen Anatomical Collection Method Collection Time Receive d Time (Source) Location / / Volume Laterality 12/24/2016 9:20 PM 7 9:25 SEAT NAILER PM SEAT NAILER Nora Leyva MD LAB - BLOOD ORDERABLES Performing Organization Address City/State/ZIP Code Phon e Number [place] [id number] [facility] Blood component (12/24/2016 8:45 PM SEAT NAILER) [facility] gist Method Time Signature Unit Number [id number] 12/24/2016 [facility] 7 10:07 PM SEAT NAILER [facility] B[facility] Blood PlateletPher 12/24/2016 [facility] OF Component esis,LeukoRe 10:07 PM SEAT NAILER [place] MEDICAL Type d [facility] B[facility] Division 00 12/24/2016 [facility] Number 10:07 PM SEAT NAILER [facility] Status of Released to 12/24/2016 [facility] OF Unit care unit 11:58 PM SEAT NAILER [facility] Blood Product [id number] 12/24/2016 [facility] OF Code 10:07 PM SEAT NAILER [facility] Unit Status ISS [facility] Specimen Anatomical Collection Method Collection Time Receive d Time (Source) Location / / Volume Laterality 12/24/2016 8:45 PM 7 8:50 SEAT NAILER PM SEAT NAILER Nora Leyva MD LABORATORY Performing Organization Address City/State/ZIP Code Phon e Number [place] [phone] [facility] Blood component (12/24/2016 8:45 PM SEAT NAILER) [facility] Method Time Signature Unit Number [id number] 12/24/2016 [facility] 2 8:52 PM SEAT NAILER [facility] B[facility] Blood PlateletPher 12/24/2016 [facility] OF Component esis,LeukoRe 8:52 PM SEAT NAILER [place] MEDICAL Type d [facility] Division 00 12/24/2016 [facility] Number 8:52 PM SEAT NAILER [facility] Status of Released to 12/24/2016 [facility] OF Unit care unit 11:58 PM SEAT NAILER [facility] Blood Product [id number] 12/24/2016 [facility] OF Code 8:52 PM SEAT NAILER [facility] Unit Status ISS [facility] Specimen Anatomical Collection Method Collection Time Receive d Time (Source) Location / / Volume Laterality 12/24/2016 8:45 PM 7 8:50 SEAT NAILER PM SEAT NAILER Nora Leyva MD LABORATORY Performing Organization Address City/State/ZIP Code Phon e Number [facility] [address] [place] [address] [address] [facility] Platelets prepare order unit (12/24/2016 8:45 PM SEAT NAILER) Patholo gist Method Time Signature Blood PLT Pheresis 12/24/2016 UNIVERSITY [facility] 8:50 PM SEAT NAILER [facility] Units Ordered 2 12/24/2016 [facility] OF 10:07 PM SEAT NAILER [facility] Specimen Anatomical Collection Method Collection Time Receive d Time (Source) Location / / Volume Laterality 12/24/2016 8:45 PM 7 8:50 SEAT NAILER PM SEAT NAILER Nora Leyva MD BLOOD BANK PRODUCT ORDERABLE S Performing Organization Address City/[facility]/ZIP Code Phon e Number [address] [address] [facility] Partial thromboplastin time (12/24/2016 8:44 PM SEAT NAILER) P athologist Signature PTT 30 22 - 37 sec 12/24/2016 [facility] 9:05 PM [facility] Specimen Anatomical Collection Method Collection Time Receive d Time (Source) Location / / Volume Laterality 12/24/2016 8:44 PM 7 8:51 SEAT NAILER PM SEAT NAILER Nora Leyva MD LAB - BLOOD ORDERABLES Performing Organization Address City/[facility]/ZIP Code Phon e Number [address] [address] [facility] (ABNORMAL) INR (12/24/2016 8:44 PM SEAT NAILER) P athologist Signature INR 1.16 (H) 0.86 - 1.14 12/24/2016 [facility] OF 9:05 PM SEAT NAILER [facility] Specimen Anatomical Collection Method Collection Time Receive d Time (Source) Location / / Volume Laterality 12/24/2016 8:44 PM 7 8:51 SEAT NAILER PM SEAT NAILER Nora Leyva MD LAB - BLOOD ORDERABLES Performing Organization Address City/State/ZIP Code Phon e Number [facility] [address] [place] [address] [facility] Fibrinogen activity (12/24/2016 8:44 PM SEAT NAILER) P athologist Signature Fibrinogen 328 200 - 420 12/24/2016 UN[facility]ITY OF mg/dL 9:[address] [facility] Specimen Anatomical Collection Method Collection Time Receive d Time (Source) Location / / Volume Laterality 12/24/2016 8:44 PM 201 7 8:51 SEAT NAILER PM SEAT NAILER Nora Leyva MD LAB - BLOOD ORDERABLES Performing Organization Address City/State/ZIP Code Phon e Number [place] [address] [place] [address] [facility] (ABNORMAL) CBC with platelets (12/24/2016 8:44 PM SEAT NAILER) Patholo gist Method Time Signature WBC 5.8 [...] Volume Laterality 12/24/2016 8:44 PM 7 8:51 SEAT NAILER PM SEAT NAILER Nora Leyva MD LAB - BLOOD ORDERABLES Performing Organization Address City/State/ZIP Code Phon e Number [facility] [address] [place] [address] [facility] (ABNORMAL) Arterial Panel (12/24/2016 8:44 PM SEAT NAILER) [facility] Method Time Signature pH Arterial 7.29 (L) 7.35 - 12/24/2016 [facility] 7.45 pH 8:56 PM [facility] pCO2 Arterial 41 35 - 45 12/24/2016 [facility]PUBL[facility] OF mm Hg 8:56 PM [facility] pO2 Arterial 355 (H) 80 - 105 12/24/2016 [facility] OF mm Hg 8:56 PM [facility] Bicarbonate 20 (L) 21 - 28 12/24/2016 [facility] Arterial mmol/L 8:56 PM [facility] Base Deficit Art 6.1 mmol/L 12/24/2016 [facility]ITY O F 8:56 PM [facility] Comment: Reference range: -9.0 to 1.8 FIO2 100% 12/24/2016 8:53 PM [facility] Sodium 137 133 - 144 12/24/2016 8:56 PM [facility] mmol/L [facility] Potassium 3.6 3.4 - 5.3 12/24/2016 8:56 PM [facility] mmol/L [facility] Hemoglobin 7.6 (L) 11.7 - 15.7 12/24/2016 8:56 PM [facility] [place] g/dL [facility] Glucose 160 (H) 70 - 99 mg/dL 12/24/2016 8:56 PM [facility] Calcium Ionized 4.1 (L) 4.4 - 5.2 12/24/2016 8:56 PM [facility] [place] Whole Blood mg/dL [facility] Specimen Anatomical Collection Method Collection Time Receive d Time (Source) Location / / Volume Laterality 12/24/2016 8:44 PM 7 8:51 SEAT NAILER PM SEAT NAILER Nora Leyva MD LAB - BLOOD ORDERABLES Performing Organization Address City/State/ZIP Code Phon e Number [facility] [address] [place] [address] [facility] (ABNORMAL) Arterial Panel (12/24/2016 8:25 PM SEAT NAILER) [facility] Method Time Signature pH Arterial 7.30 (L) 7.35 - 12/24/2016 [facility] 7.45 pH 8:33 PM [facility] pCO2 Arterial 40 35 - 45 12/24/2016 [facility] OF mm Hg 8:33 PM [facility] pO2 Arterial 195 (H) 80 - 105 12/24/2016 [facility] mm Hg 8:33 PM [facility] Bicarbonate 19 (L) 21 - 28 12/24/2016 RE[facility] OF Arterial mmol/L 8:33 PM [facility] Base Deficit Art 6.6 mmol/L 12/24/2016 [facility] F 8:33 PM [facility] Comment: Reference range: -9.0 to 1.8 FIO2 100% 12/24/2016 8:29 PM [facility] Sodium 135 133 - 144 12/24/2016 8:33 PM [facility] mmol/L [facility] Potassium 4.1 3.4 - 5.3 12/24/2016 8:33 PM [facility] mmol/L [facility] Hemoglobin 8.0 (L) 11.7 - 15.7 12/24/2016 8:33 PM [facility] [place] g/dL [facility] Glucose 136 (H) 70 - 99 mg/dL 12/24/2016 8:33 PM [facility] Calcium Ionized 4.3 (L) 4.4 - 5.2 12/24/2016 8:33 PM [facility] Whole Blood mg/dL [facility] T BANK Specimen Anatomical Collection Method Collection Time Receive d Time (Source) Location / / Volume Laterality 12/24/2016 8:25 PM 7 8:29 SEAT NAILER PM SEAT NAILER Nora Leyva MD LAB - BLOOD ORDERABLES Performing Organization Address City/[facility]/ZIP Code Phon e Number [facility] [address] [place] [address] [facility] Blood component (12/24/2016 7:25 PM SEAT NAILER) [facility] Method Time Signature Unit Number [id number] 12/24/2016 [facility] 10:10 PM SEAT NAILER [facility] BANK Blood Plasma, 12/24/2016 [facility] Component Thawed 10:10 PM SEAT NAILER [facility] WEST BANK Division 00 12/24/2016 [facility] Number 10:10 PM SEAT NAILER [facility] BANK Status of No longer 12/24/2016 [facility] Unit available 11:49 PM SEAT NAILER [facility] 12/24/2016 [facility] 2349 BANK Blood Product [id number] 12/24/2016 [facility] OF Code 10:10 PM SEAT NAILER [facility] BANK Unit Status RET [facility] BANK Specimen Anatomical Collection Method Collection Time Receive d Time (Source) Location / / Volume Laterality 12/24/2016 7:25 PM 7 7:30 SEAT NAILER PM SEAT NAILER Nora Leyva MD LAB - BLOOD BANK PRODUCT ORD ER Performing Organization Address [facility] Phon e Number [address] [address] [facility] Blood component (12/24/2016 7:25 PM SEAT NAILER) [facility] Method Time Signature Unit Number [id number] 12/24/2016 [facility] 10:10 PM SEAT NAILER [facility] BANK Blood Plasma, 12/24/2016 [facility] Component Thawed 10:10 PM [facility] BANK Division 00 12/24/2016 [facility] Number 10:10 PM [facility] BANK Status of No longer 12/24/2016 [facility] OF Unit available 11:48 PM SEAT NAILER [facility] 12/24/2016 [facility] 2348 BANK Blood Product [id number] 12/24/2016 [facility] Code 10:10 PM SEAT NAILER [facility] BANK Unit Status [facility] Specimen Anatomical Collection Method Collection Time Receive d Time (Source) Location / / Volume Laterality 12/24/2016 7:25 PM 7 7:30 SEAT NAILER PM SEAT NAILER Nora Leyva MD LAB - BLOOD BANK PRODUCT ORD ER Performing Organization Address City/[facility] Phon e Number [address] [address] [facility] Blood component (12/24/2016 7:25 PM SEAT NAILER) [employer] Method Time Signature Unit Number [id number] 12/24/2016 [facility] 9 9:03 PM SEAT NAILER [facility] BANK Blood Plasma, 12/24/2016 [facility] Component Thawed 9:03 PM SEAT NAILER [facility] WEST BANK Division 00 12/24/2016 [facility] Number 9:03 PM SEAT NAILER [facility] BANK Status of Released to 12/24/2016 [facility] OF Unit care unit 11:58 PM SEAT NAILER [facility] Blood Product [id number] 12/24/2016 [facility] Code 9:03 PM SEAT NAILER [facility] B[facility] Unit Status [facility] Specimen Anatomical Collection Method Collection Time Receive d Time (Source) Location / / Volume Laterality 12/24/2016 7:25 PM 7 7:30 SEAT NAILER PM SEAT NAILER Nora Leyva MD LABORATORY Performing Organization Address City/[facility] Code Phon e Number [place] [phone] [facility] Blood component (12/24/2016 7:25 PM SEAT NAILER) [facility] Method Time Signature Unit Number [id number] 12/24/2016 [facility] 7 9:03 PM SEAT NAILER [facility] BANK Blood Plasma, 12/24/2016 [facility] Component Thawed 9:03 PM SEAT NAILER [facility] WEST BANK Division 00 12/24/2016 [facility] Number 9:03 PM SEAT NAILER [facility] BANK Status of Released to 12/24/2016 [facility] Unit care unit 11:58 PM SEAT NAILER [facility] Blood Product [id number] 12/24/2016 [facility] Code 9:03 PM SEAT NAILER [facility] B[facility] Unit Status [facility] Specimen Anatomical Collection Method Collection Time Receive d Time (Source) Location / / Volume Laterality 12/24/2016 7:25 PM 7 7:30 SEAT NAILER PM SEAT NAILER Nora Leyva MD LABORATORY Performing Organization Address City/[facility] Code Phon e Number [facility] [address] Blood component (12/24/2016 7:25 PM SEAT NAILER) [facility] Method Time Signature Unit Number [id number] 12/24/2016 [facility] 8:18 PM SEAT NAILER [facility] BANK Blood Apheresis 12/24/2016 [facility] Component Plasma Thawed 8:18 PM SEAT NAILER [facility] WEST BANK Division 00 12/24/2016 [facility] Number 8:18 PM SEAT NAILER [facility] BANK Status of Released to 12/24/2016 [facility] OF Unit care unit 11:58 PM SEAT NAILER [facility] Blood Product [id number] 12/24/2016 [facility] Code 8:18 PM SEAT NAILER [facility] B[facility] Unit Status [facility] Specimen Anatomical Collection Method Collection Time Receive d Time (Source) Location / / Volume Laterality 12/24/2016 7:25 PM 7 7:30 SEAT NAILER PM SEAT NAILER Nora Leyva MD LABORATORY Performing Organization Address [facility] Code Phon e Number [facility] [address] [place] [phone] [facility] Blood component (12/24/2016 7:25 PM SEAT NAILER) [facility] Method Time Signature Unit Number [id number] 12/24/2016 [facility] OF 5 8:18 PM SEAT NAILER [facility] B[facility] Blood Plasma, 12/24/2016 [facility] OF Component Thawed 8:18 PM SEAT NAILER [facility] WEST BANK Division 00 12/24/2016 [facility] Number 8:18 PM SEAT NAILER [facility] BANK Status of Released to 12/24/2016 [facility] OF Unit care unit 11:58 PM SEAT NAILER [facility] Blood Product [id number] 12/24/2016 [facility] OF Code 8:18 PM SEAT NAILER [facility] B[facility] Unit Status ISS [facility] Specimen Anatomical Collection Method Collection Time Receive d Time (Source) Location / / Volume Laterality 12/24/2016 7:25 PM 7 7:30 SEAT NAILER PM SEAT NAILER Nora Leyva MD LABORATORY Performing Organization Address City/[facility] Phon e Number [facility] [address] [place] [phone] WEST BANK Blood component (12/24/2016 7:25 PM SEAT NAILER) [employer] Method Time Signature Unit Number [id number] 12/24/2016 [facility] OF 3 8:18 PM SEAT NAILER [facility] BANK Blood Plasma, 12/24/2016 [facility] Component Thawed 8:18 PM SEAT NAILER [facility] WEST BANK Division 00 12/24/2016 [facility] Number 8:18 PM SEAT NAILER [facility] BANK Status of Released to 12/24/2016 [facility] OF Unit care unit 11:58 PM SEAT NAILER [facility] Blood Product [id number] 12/24/2016 [facility] Code 8:18 PM SEAT NAILER [facility] B[facility] Unit Status ISS [facility] Specimen Anatomical Collection Method Collection Time Receive d Time (Source) Location / / Volume Laterality 12/24/2016 7:25 PM 7 7:30 SEAT NAILER PM SEAT NAILER Nora Leyva MD LABORATORY Performing Organization Address City/[facility] Code Phon e Number [address] Blood component (12/24/2016 7:25 PM SEAT NAILER) [facility] Method Time Signature Unit Number [id number] 12/24/2016 [facility] 9 8:18 PM SEAT NAILER [facility] B[facility] Blood Plasma, 12/24/2016 [facility] OF Component Thawed 8:18 PM SEAT NAILER [facility] WEST BANK Division 00 12/24/2016 [facility] Number 8:18 PM SEAT NAILER [facility] BANK Status of Released to 12/24/2016 [facility] OF Unit care unit 11:58 PM SEAT NAILER [facility] Blood Product [id number] 12/24/2016 [facility] Code 8:18 PM SEAT NAILER [facility] B[facility] Unit Status ISS [facility] Specimen Anatomical Collection Method Collection Time Receive d Time (Source) Location / / Volume Laterality 12/24/2016 7:25 PM 7 7:30 SEAT NAILER PM SEAT NAILER Nora Leyva MD LABORATORY Performing Organization Address City/[facility]/ZIP Code Phon e Number [facility] [address] Plasma prepare order unit (12/24/2016 7:25 PM SEAT NAILER) P athologist Signature Blood Plasma 12/24/2016 [facility] Component Type 7:31 PM [facility] Units Ordered 8 12/24/2016 [facility] 10:10 PM [facility] Specimen Anatomical Collection Method Collection Time Receive d Time (Source) Location / / Volume Laterality 12/24/2016 7:25 PM 7 7:30 SEAT NAILER PM SEAT NAILER Nora Leyva MD BLOOD BANK PRODUCT ORDERABLE S Performing Organization Address City/State/ZIP Code Phon e Number [facility] [address] [place] [address] [facility] (ABNORMAL) CBC with platelets differential (12/24/2016 7:06 PM SEAT NAILER) Patholo gist Method Time Signature WBC 10.4 4.0 - 12/24/2016 [facility] OF 11.0 7:11 PM [facility] 10e9/L [facility] RBC Count 2.99 (L) 3.8 - [...] specimen 12/24/2016 7:06 PM 017 7:07 (specimen) SEAT NAILER PM SEAT NAILER Kayla Davidson MD LAB - BLOOD ORDERABLES Performing Organization Address City/State/ZIP Code Phon e Number [facility] [address] [place] [address] [facility] Urine Culture Aerobic Bacterial (12/24/2016 7:50 AM SEAT NAILER) Component Value Ref Test Analysis Performed At [facility] Range Method Time Signature Specimen Midstream Urine INFECTIOUS Description DISEASE DIAGNOSTIC LABORATORY Special Specimen received 12/24/2016 [facility] in preservative 11:03 AM [facility] Culture Micro <10,000 colonies/mL 12/25/2016 INFEC TIOUS mixed urogenital evelina 7:35 AM SEAT NAILER DISEA SE Susceptibility testing not routinely done DIAGNOSTIC LABORATORY Specimen (Source) Anatomical Collection Method Collection Time Re ceived Time Location / / Volume Laterality Examination of 12/24/2016 7:50 12/24/2016 8:46 midstream urine AM SEAT NAILER AM SEAT NAILER specimen (procedure) Nora Leyva MD LAB - MICRO GENERAL ORDERABL ES Performing Organization Address City/State/ZIP Code Phon e Number INFECTIOUS DISEASES [address] [place] [address] DIAGNOSTIC LABORATORY, [facility] INFECTIOUS DISEASE [address] [place] [address], [facility] DIAGNOSTIC LABORATORY [address] [address], [facility] (ABNORMAL) UA with Microscopic reflex to Culture (12/24/2016 7:50 AM SEAT NAILER) [facility] Method Time Signature Color Urine Yellow 12/24/2016 [...] 8:35 AM [facility] Specific [place] 1.013 1.003 - 12/24/2016 UNIVERSITY O F [...] HOSPITAL Urobilinogen Normal 0.0 - 2.0 12/24/2016 REPUBL[facility] OF mg/dL mg/dL 8:35 AM [facility]ERSITY OF [...] UNIVERSITY OF Epithelial /HPF /HPF 8:37 AM [facility] Transitional Epi <1 0 - 1 12/24/2016 REPUBL[facility] O F /HPF 8:37 AM [facility] Specimen (Source) Anatomical Collection Method Collection Time Re ceived Time Location / / Volume Laterality Examination of URINE SPECIMEN 12/24/2016 7:50 12/25/19 17 8:05 midstream urine OBTAINED BY CLEAN AM SEAT NAILER AM [facility] specimen CATCH PROCEDURE / (procedure) Unknown Petrona Barone DO LAB - URINE ORDERABLES Performing Organization Address City/State/ZIP Code Phon e Number [facility] [address] [place] [address] [facility] (ABNORMAL) Wet prep (12/23/2016 11:53 PM SEAT NAILER) Component Value Ref Test Analysis Performed At [facility] gist Range Method Time Signature Specimen Vagina [facility] OF Description [facility] Wet Prep No motile 12/24/2016 [facility] OF Trichomonas 12:21 AM [facility] Wet Prep Rare 12/24/2016 [facility] OF Yeast seen 12:21 AM [facility] (A) [facility] Wet Prep Moderate 12/24/2016 [facility] OF PMNs seen 12:21 AM [facility] Wet Prep No clue cells 12/24/2016 [facility] OF seen 12:21 AM [facility] Specimen Anatomical Collection Method Collection Time Receive d Time (Source) Location / / Volume Laterality Specimen from 12/23/2016 11:53 12/24/2016 vagina PM SEAT NAILER 12:10 AM SEAT NAILER (specimen) Petrona Barone DO LAB - MICRO GENERAL ORDERABL ES Performing Organization Address City/State/ZIP Code Phon e Number [facility] [address] [place] [address] [facility] Maternal BPP Single (12/23/2016 8:37 AM SEAT NAILER) Anatomical Region Laterality Modality Ultrasound Specimen (Source) Anatomical Collection Method Collection Time Re ceived Time Location / / Volume Laterality 12/23/2016 8:05 AM SEAT NAILER Impressions 12/23/2016 11:10 AM SEAT NAILER IMPRESSION 1) Intrauterine at 29 3/7 week s gestational age. 2) The BPP is reassuring. 3) The amniotic fluid volume low consist ent with known PPROM. 4) There is a complete posterior/lateral placenta previa. Narrative 12/23/2016 11:10 AM SEAT NAILER BPP Pat. Name: DEANN KING Study Date: 8:05am Pat. NO: [id number] Referring ??: CHRIST LOZADA Site: [facility] Promotions Officer: Jay Lu : 1980 Age: 36 INDICATION Premature Rupture of Membranes ( PPROM) Complete previa. METHOD [facility] ANTEPARTUM inpatient exam, Transabd ominal ultrasound examination. [...] Barone, DO - 12/23/2016 BPP Pat. Name:Elizabeth KING Date:12/23 8:05am Pat. NO: [id number] MD:CHRIST BHAT ON [facility]Yesenia [facility] RDMS :1980Age:36 INDICATION Premature Rupture of Membranes ( PPROM) Complete previa. METHOD [facility] ANTEPARTUM inpatient exam, Transabd ominal ultrasound examination. [...] today's ulzuhair rasound with the patient. Continue inpatient management [...] complete posterior/lateral placenta previa. Lashawn Patel [facility] ORDER[facility]LES Blood component (12/23/2016 6:54 AM SEAT NAILER) Patholo gist Method Time Signature Unit Number [id number] 12/24/2016 [facility]ERSITY OF 9:49 PM SEAT NAILER [facility] B[facility] Blood Red Blood 12/24/2016 [facility]ERSITY OF Component Cells 9:49 PM SEAT NAILER [facility] Leukocyte [facility] WEST Reduced BANK Division 00 12/24/2016 [facility] Number 9:49 PM SEAT NAILER [facility] BANK Status of Released to 12/24/2016 [facility]ITY OF Unit care unit 11:58 PM SEAT NAILER [facility] Blood Product [id number] 12/24/2016 [facility] OF Code 9:49 PM SEAT NAILER [facility] B[facility] Unit Status [facility] Specimen Anatomical Collection Method Collection Time Receive d Time (Source) Location / / Volume Laterality 12/23/2016 6:54 AM 7 6:55 SEAT NAILER AM SEAT NAILER Nora Push IO LABORATORY Performing Organization Address City/State/ZIP Code Phon e Number [facility] [address] [place] [address] [address] [facility] Blood component (12/23/2016 6:54 AM SEAT NAILER) [facility] Method Time Signature Unit Number [id number] 12/24/2016 [facility]ERSITY OF 9:49 PM SEAT NAILER [facility] B[facility] Blood Red Blood 12/24/2016 [facility] OF Component Cells 9:49 PM SEAT NAILER [facility] WEST Reduced BANK Division 00 12/24/2016 [facility] OF Number 9:49 PM SEAT NAILER [facility] BANK Status of No longer 12/24/2016 [facility]ITY OF Unit available 11:50 PM [facility] 12/24/2016 [facility] 2350 BANK Blood Product [id number] 12/24/2016 [facility]ITY OF Code 9:49 PM SEAT NAILER [facility] B[facility] Unit Status [facility] Specimen Anatomical Collection Method Collection Time Receive d Time (Source) Location / / Volume Laterality 12/23/2016 6:54 AM 7 6:55 SEAT NAILER AM SEAT NAILER Nora Push IO LABORATORY Performing Organization Address City/[facility]/ZIP [facility] Phon e Number [address] [address] [facility] Blood component (12/23/2016 6:54 AM SEAT NAILER) [facility] gist Method Time Signature Unit Number [id number] 12/24/2016 [facility]ITY OF 9:49 PM SEAT NAILER [facility] BANK Blood Red Blood 12/24/2016 [facility] OF Component Cells 9:49 PM SEAT NAILER [facility] Leukocyte [facility] WEST Reduced BANK Division 00 12/24/2016 [facility] OF Number 9:49 PM SEAT NAILER [facility] BANK Status of Released to 12/24/2016 [facility] OF Unit care unit 11:58 PM SEAT NAILER [facility] Blood Product [id number] 12/24/2016 [facility] OF Code 9:49 PM SEAT NAILER [facility] B[facility] Unit Status [facility] Specimen Anatomical Collection Method Collection Time Receive d Time (Source) Location / / Volume Laterality 12/23/2016 6:54 AM 7 6:55 SEAT NAILER AM SEAT NAILER [employer] LAB - BLOOD BANK PRODUCT ORD ER Performing Organization Address City/[facility] Phon e Number [facility] [address] [place] [address] [address] WEST BANK Blood component (12/23/2016 6:54 AM SEAT NAILER) [employer] Method Time Signature Unit Number [id number] 12/24/2016 [facility]ITY OF 9:[address] [facility] BANK Blood Red Blood 12/24/2016 [facility]ERSITY OF Component Cells 9:49 PM SEAT NAILER [facility] WEST Reduced BANK Division 00 12/24/2016 [facility] OF Number 9:49 PM SEAT NAILER [facility] B[facility] Status of Released to 12/24/2016 [facility]ITY OF Unit care unit 11:58 PM SEAT NAILER [facility] Blood Product [id number] 12/24/2016 [facility] OF Code 9:49 PM SEAT NAILER [facility] B[facility] Unit Status [facility] Specimen Anatomical Collection Method Collection Time Receive d Time (Source) Location / / Volume Laterality 12/23/2016 6:54 AM 7 6:55 SEAT NAILER AM SEAT NAILER [employer] LAB - BLOOD BANK PRODUCT ORD ER Performing Organization Address City/[facility] Phon e Number [facility] [address] [place] [address] [address] WEST BANK Blood component (12/23/2016 6:54 AM SEAT NAILER) [facility] Method Time Signature Unit Number [id number] 12/24/2016 UN[facility]ERSITY OF 8:38 PM SEAT NAILER [facility] B[facility] Blood Red Blood 12/24/2016 [facility]ITY OF Component Cells 8:38 PM SEAT NAILER [facility] Leukocyte [facility] WEST Reduced BANK Division 00 12/24/2016 [facility] OF Number 8:38 PM SEAT NAILER [facility] BANK Status of Released to 12/24/2016 [facility] OF Unit care unit 11:58 PM SEAT NAILER [facility] Blood Product [id number] 12/24/2016 [facility]ITY OF Code 8:38 PM SEAT NAILER [facility] B[facility] Unit Status [facility] Specimen Anatomical Collection Method Collection Time Receive d Time (Source) Location / / Volume Laterality 12/23/2016 6:54 AM 7 6:55 SEAT NAILER AM SEAT NAILER [employer] LAB - BLOOD BANK PRODUCT ORD ER Performing Organization Address City/[facility] Code Phon e Number [facility] [address] [place], [place] [id number] [place] [phone] [place] [address] Blood component (12/23/2016 6:54 AM SEAT NAILER) [facility] Method Time Signature Unit Number [id number] 12/24/2016 UN[facility]ITY OF 8:[address] [facility] WE[facility] BANK Blood Red Blood 12/24/2016 [facility]ITY OF Component Cells 8:38 PM SEAT NAILER [facility] WEST Reduced BANK Division 00 12/24/2016 [facility] OF Number 8:[address] [facility] WEST BANK Status of Released to 12/24/2016 [facility]ITY OF Unit care unit 11:[address] [facility] Blood Product [id number] 12/24/2016 UN[facility] OF Code 8:[address] [facility] BANK Unit Status [facility] Specimen Anatomical Collection Method Collection Time Receive d Time (Source) Location / / Volume Laterality 12/23/2016 6:54 AM 7 6:55 SEAT NAILER AM SEAT NAILER Daily [employer] LAB - BLOOD BANK PRODUCT ORD ER Performing Organization Address City/[facility]/ZIP Code Phon e Number [facility] [address] [place] [address] [address] WEST BANK Blood component (12/23/2016 6:54 AM SEAT NAILER) [facility] Method Time Signature Unit Number [id number] 12/24/2016 UN[facility]ERSITY OF 8:38 PM SEAT NAILER [facility] B[facility] Blood Red Blood 12/24/2016 UN[facility]ERSITY OF Component Cells 8:38 PM SEAT NAILER [facility] WEST Reduced BANK Division 00 12/24/2016 [facility] OF Number 8:38 PM SEAT NAILER [facility] B[facility] Status of Released to 12/24/2016 [facility]ITY OF Unit care unit 11:58 PM SEAT NAILER [facility] Blood Product [id number] 12/24/2016 [facility]ERSITY OF Code 8:38 PM SEAT NAILER [facility] Unit Status [facility] Specimen Anatomical Collection Method Collection Time Receive d Time (Source) Location / / Volume Laterality 12/23/2016 6:54 AM 7 6:55 SEAT NAILER AM SEAT NAILER [facility] LABORATORY Performing Organization Address City/[facility]/ZIP Code Phon e Number [address] [address] [place] [facility] Blood component (12/23/2016 6:54 AM SEAT NAILER) [facility] Bridj Method Time Signature Unit Number [id number] 12/24/2016 UNIVERSITY OF 8:38 PM SEAT NAILER [facility] Blood Red Blood 12/24/2016 UNIVERSITY OF Component Cells 8:38 PM SEAT NAILER [facility] Reduced BANK Division 00 12/24/2016 UNIVERSITY OF Number 8:38 PM SEAT NAILER [facility] Status of Released to 12/24/2016 UNIVERSITY OF Unit care unit 11:58 PM SEAT NAILER [facility] Blood Product [id number] 12/24/2016 UNIVERSITY OF Code 8:38 PM SEAT NAILER [facility] Unit Status [facility] Specimen Anatomical Collection Method Collection Time Receive d Time (Source) Location / / Volume Laterality 12/23/2016 6:54 AM 7 6:55 SEAT NAILER AM SEAT NAILER [facility] LABORATORY Performing Organization Address City/State/ZIP Code Phon e Number [address] [address] WEST BANK Blood component (12/23/2016 6:54 AM SEAT NAILER) [facility] Method Time Signature Unit Number [id number] 12/24/2016 UNIVERSITY OF 7:32 PM SEAT NAILER [facility] Blood Red Blood 12/24/2016 UNIVERSITY OF Component Cells 7:32 PM SEAT NAILER [facility] Reduced BANK Division 00 12/24/2016 UN[facility]ERSITY OF Number 7:32 PM SEAT NAILER [facility] Status of Released to 12/24/2016 UNIVERSITY OF Unit care unit 11:58 PM SEAT NAILER [facility] Blood Product [id number] 12/24/2016 UNIVERSITY OF Code 7:32 PM SEAT NAILER [facility] Unit Status [facility] Specimen Anatomical Collection Method Collection Time Receive d Time (Source) Location / / Volume Laterality 12/23/2016 6:54 AM 7 6:55 SEAT NAILER AM SEAT NAILER Daily [employer] LABORATORY Performing Organization Address City/State/ZIP Code Phon e Number [facility] [address] [place] [address] [address] [facility] Blood component (12/23/2016 6:54 AM SEAT NAILER) [facility] Method Time Signature Unit Number [id number] 12/24/2016 UNIVERSITY OF 7:32 PM SEAT NAILER [facility] Blood Red Blood 12/24/2016 UNIVERSITY OF Component Cells 7:32 PM SEAT NAILER [facility] Reduced BANK Division 00 12/24/2016 UN[facility]ERSITY OF Number 7:32 PM SEAT NAILER [facility] Status of Released to 12/24/2016 UNIVERSITY OF Unit care unit 11:58 PM SEAT NAILER [facility] Blood Product [id number] 12/24/2016 UNIVERSITY OF Code 7:32 PM SEAT NAILER [facility] Unit Status [facility] Specimen Anatomical Collection Method Collection Time Receive d Time (Source) Location / / Volume Laterality 12/23/2016 6:54 AM 7 6:55 SEAT NAILER AM SEAT NAILER Beepi Performing Organization Address City/State/ZIP Code Phon e Number [facility] [address] [place] [address] [address] [place]ST [facility] Blood component (12/23/2016 6:54 AM SEAT NAILER) [facility] Bridj Method Time Signature Unit Number [id number] 12/24/2016 UNIVERSITY OF 7:05 PM SEAT NAILER [facility] Blood Red Blood 12/24/2016 UNIVERSITY OF Component Cells 7:05 PM SEAT NAILER [facility] Reduced BANK Division 00 12/24/2016 UN[facility]ERSITY OF Number 7:05 PM SEAT NAILER [facility] Status of Released to 12/24/2016 UNIVERSITY OF Unit care unit 11:58 PM SEAT NAILER [facility] Blood Product [id number] 12/24/2016 UN[facility]ITY OF Code 7:05 PM SEAT NAILER [facility] Unit Status [facility] Specimen Anatomical Collection Method Collection Time Receive d Time (Source) Location / / Volume Laterality 12/23/2016 6:54 AM 7 6:55 SEAT NAILER AM SEAT NAILER [facility] LABORATORY Performing Organization Address City/State/ZIP Code Phon e Number [facility] [address] [place] [address] [address] [place] Blood component (12/23/2016 6:54 AM SEAT NAILER) [facility] Method Time Signature Unit Number [id number] 12/24/2016 UN[facility]ERSITY OF 7:05 PM SEAT NAILER [facility] Blood Red Blood 12/24/2016 UNIVERSITY OF Component Cells 7:05 PM SEAT NAILER [facility] Reduced BANK Division 00 12/24/2016 UN[facility]ERSITY OF Number 7:05 PM SEAT NAILER [facility] Status of Released to 12/24/2016 UNIVERSITY OF Unit care unit 11:58 PM SEAT NAILER [facility] Blood Product [id number] 12/24/2016 UN[facility]ERSITY OF Code 7:05 PM SEAT NAILER [facility] Unit Status [facility] Specimen Anatomical Collection Method Collection Time Receive d Time (Source) Location / / Volume Laterality 12/23/2016 6:54 AM 7 6:55 SEAT NAILER AM SEAT NAILER [facility] LABORATORY Performing Organization Address City/State/ZIP Code Phon e Number [facility] [address] [place] [address] [address] [facility] ABO/Rh type and screen (12/23/2016 6:54 AM SEAT NAILER) [facility] gist Method Time Signature Units Ordered 12 12/24/2016 UNIVERSITY OF 9:49 PM SEAT NAILER [facility] ABO B 12/23/2016 UNIVERSITY OF 7:32 AM SEAT NAILER [facility] RH(D) Pos [facility] BANK Antibody Neg 12/23/2016 UNIVERSITY OF Screen 7:32 AM SEAT NAILER [facility] Test Valid University of 12/23/2016 UN[facility]ITY OF Only At [place] 7:01 AM SEAT NAILER [facility] BANK w Hospital Specimen 12/26/2016 12/23/2016 UNIVERSITY OF Expires 7:01 AM SEAT NAILER [facility] Crossmatch Red Blood 12/24/2016 UNIVERSITY OF Cells 7:05 PM SEAT NAILER [facility] Specimen Anatomical Collection Method Collection Time Receive d Time (Source) Location / / Volume Laterality Blood specimen 12/23/2016 6:54 AM 017 6:55 (specimen) SEAT NAILER AM SEAT NAILER Norashelly Munguia Cade LAB - BLOOD BANK TEST ORDER Performing Organization Address City/[facility]/ZIP Code Phon e Number [address] [address] [facility] ABO/Rh type and screen (12/20/2016 10:48 AM CDT) [facility] gist Method Time Signature ABO B 12/20/2016 UNIVERSITY OF 11:31 AM CDT [facility] B[facility] RH(D) Pos [facility] Antibody Neg 12/20/2016 UNIVERSITY OF Screen 11:31 AM CDT [facility] Test Valid University of 12/20/2016 UN[facility]ERSITY OF Only [facility] [place] 11:00 AM CDT [facility],[place] claude BANK w Hospital Specimen 12/23/2016 12/20/2016 UNIVERSITY OF Expires 11:00 AM CDT [facility] Specimen Anatomical Collection Method Collection Time Receive d Time (Source) Location / / Volume Laterality Blood specimen 12/20/2016 10:48 11/03/201 7 (specimen) AM CDT 10:49 AM CDT Lashawn Patel MD LAB - BLOOD BANK TEST ORDER Performing Organization Address City/State/ZIP Code Phon e Number [facility] [address] [place] [address] [facility] Maternal BPP Single (12/19/2016 8:46 AM CDT) Anatomical Region Laterality Modality Ultrasound Specimen (Source) Anatomical Collection Method Collection Time Re ceived Time Location / / Volume Laterality 12/19/2016 8:16 AM CDT Impressions 12/25/2016 9:13 AM SEAT NAILER IMPRESSION 1) Intrauterine at 28 6/7 week s gestational age. 2) The BPP is reassuring. 3) Oligohydramnios is seen consistent wi th know PPROM. 4) A complete posterior placenta previa is again seen. Narrative 12/25/2016 9:13 AM SEAT NAILER BPP Pat. Name: DEANN KING Study Date: 8:16am Pat. NO: [id number] Referring ??: CHRIST LOZADA Site: [facility] Promotions Officer: Jay Lu : 1980 Age: 36 INDICATION Premature Rupture of Membranes ( PPROM) Complete previa. METHOD [facility] ANTEPARTUM inpatient exam, Transabd ominal ultrasound examination. [...] be different from the original. BPP Pat. Name:FRANSISCO KINGReymundo Date:12/19 8:16am Pat. NO: [id number] MD:CHRIST BHAT ON [facility]Yesenia [facility] RDMS :1980Age:36 INDICATION Premature Rupture of Membranes ( PPROM) Complete previa. METHOD [facility] ANTEPARTUM inpatient exam, Transabd ominal ultrasound examination. [...] rasound with the patient. Continue surveillance with [facility] weekly BPP. Continue inpatient management [...] is again seen. Erum Manzanares MD [facility] US ORDERABLES ABO/Rh type and screen (12/17/2016 6:54 AM CDT) [facility] Method Time Signature ABO B 12/17/2016 UNIVERSITY OF 7:49 AM CDT [facility] RH(D) Pos [facility] Antibody Neg 12/17/2016 UNIVERSITY OF Screen 7:49 AM CDT [facility] Test Valid University 12/17/2016 [facility] [place] [facility] [place] 7:18 AM CDT [facility] BANK w Hospital Specimen 12/20/2016 12/17/2016 UNIVERSITY OF Expires 7:18 AM CDT [facility] Specimen Anatomical Collection Method Collection Time Receive d Time (Source) Location / / Volume Laterality Blood specimen 12/17/2016 6:54 AM 017 6:56 (specimen) CDT AM CDT Nora Munguia Cade LAB - BLOOD BANK TEST ORDER Performing Organization Address City/State/ZIP Code Phon e Number [facility] [address] [place] [address] [facility] [...] DEANN KING Study Date: 8:43am Pat. NO: [id number] Referring ??MD: CHRIST LOZADA Site: [facility] Promotions Officer: Jay Lu : 1980 Age: 36 INDICATION Premature Rupture of Membranes ( PPROM) Complete previa. METHOD [facility] ANTEPARTUM inpatient exam, Transabd ominal ultrasound examination. [...] Pat. Name:Elizabeth KING Date:12/16 8:43am Pat. NO: [id number] MD:CHRIST BHAT ON [facility]Yesenia Sen RDMS :1980Age:36 INDICATION Premature Rupture of Membranes ( PPROM) Complete previa. METHOD [facility] ANTEPARTUM inpatient exam, Transabd ominal ultrasound examination. [...] rasound with the patient. Continue surveillance with [facility] weekly BPP. Continue inpatient management until delivery. [...] stent with known PPROM. Erum Manzanares MD [facility] ORDERABLES ABO/Rh type and screen (12/14/2016 12:28 AM CDT) [facility] gist Method Time Signature ABO B 12/14/2016 UNIVERSITY OF 4:01 AM CDT [facility] RH(D) Pos [facility] Antibody Neg 12/14/2016 UNIVERSITY OF Screen 4:01 AM CDT [facility] Test Valid University 12/14/2016 [facility]ITY OF Only [facility] [place] 1:05 AM CDT [facility] BANK w Hospital Specimen 12/17/2016 12/14/2016 UNIVERSITY OF Expires 1:05 AM CDT [facility] Specimen Anatomical Collection Method Collection Time Receive d Time (Source) Location / / Volume Laterality Blood specimen 12/14/2016 12:28 7 (specimen) AM CDT 12:29 AM CDT Nalini Eli MD LAB - BLOOD BANK TEST ORDER Performing Organization Address City/[facility] Code Phon e Number [facility] [address] [place] [id number] [place] [address] Hepatitis B Surface Antibody (12/13/2016 9:42 PM CDT) athologist Signature Hepatitis B 0.21 <8.00 12/16/2016 UNIVERSITY OF Surface m[IU]/mL 11:39 AM CDT [facility] Comment: Nonreactive, No antibody detect ed when the value is less than 8.00 m[IU]/mL. Specimen Anatomical Collection Method Collection Time Receive d Time (Source) Location / / Volume Laterality Blood specimen 12/13/2016 9:42 PM 017 9:43 (specimen) CDT PM CDT Erum Manzanares MD LAB - BLOOD ORDERABLES Performing Organization Address City/[facility]/ZIP Code Phon e Number [facility] [address] [place] [address] [facility] Hepatitis A Antibody IgG (12/13/2016 9:42 PM CDT) [facility] Method Time Signature Hepatitis A Nonreactive NR^Nonrea 12/16/2016 UNIVERSITY OF Antibody IgG ctive 11:39 AM CDT [facility] Comment: This assay cannot be used for t he diagnosis of acute HAV infection. Specimen Anatomical Collection Method Collection Time Receive d Time (Source) Location / / Volume Laterality Blood specimen 12/13/2016 9:42 PM 017 9:43 (specimen) CDT PM CDT Erum Manzanares MD LAB - BLOOD ORDERABLES Performing Organization Address City/[facility]/ZIP Code Phon e Number [facility] [address] Hepatitis B core antibody (12/13/2016 9:42 PM CDT) [facility] Method Time Signature Hepatitis B Nonreactive NR^Nonrea 12/16/2016 [facility] Maricruz ctive 11:39 AM CDT [facility] Specimen Anatomical Collection Method Collection Time Receive d Time (Source) Location / / Volume Laterality Blood specimen 12/13/2016 9:42 PM 017 9:43 (specimen) CDT PM CDT Erum Manzanares MD LAB - BLOOD ORDERABLES Performing Organization Address City/[facility]/ZIP Code Phon e Number [facility] [address] MR (12/13/2016 2:33 PM CDT) Anatomical [...] Oligohydramnios. ZARINA THOMAS MD Nora Vince Mohamud [facility] [...] DEANN KING Study Date: 7:48am Pat. NO: [id number] Referring ??MD: CHRIST LOZADA Site: [facility] Promotions Officer: Jay Lu : 1980 Age: 36 INDICATION Premature Rupture of Membranes ( PPROM), Complete Previa. METHOD [facility] ANTEPARTUM inpatient exam, Transabd ominal and transvaginal [...] The patient was escorted [facility] room at the end of the ultrasound. Please see [facility] for further documentation regarding plan of care. If you have questions regarding today's evaluation or if we can be of further service, please contact the [facility]. anomalies may be present but not detected. Procedure Note Nora Mohamud MD - 12/12/2016For matting of this note might be different from the original. Cx TV Pat. Name:Clovis KINGjames Date:12/12 7:48am Pat. NO: [id number] MD:CHRIST BHAT ON [facility]:Yesenia Sen RDMS :1980Age:36 INDICATION Premature Rupture of Membranes ( PPROM), Complete Previa. METHOD [facility] ANTEPARTUM inpatient exam, Transabd ominal and transvaginal [...] The patient was escorted [facility] room at the end of the ultrasound. Please see [facility] for further documentation regarding plan of [...] the placental-myometrial interface appears normal. Nora Mohamud [facility] ORDERABLES ABO/Rh type and screen (12/11/2016 9:05 AM CDT) [facility] Method Time Signature ABO B 12/11/2016 UNIVERSITY 10:14 AM CDT [facility] RH(D) Pos [facility] Antibody Neg 12/11/2016 UNIVERSITY OF Screen 10:14 AM CDT [facility] Test Valid [facility] 12/11/2016 [facility] [place] [facility] [place] 9:21 AM CDT [facility] BANK w Hospital Specimen 12/14/2016 12/11/2016 UNIVERSITY OF Expires 9:21 AM CDT [facility] Specimen Anatomical Collection Method Collection Time Receive d Time (Source) Location / / Volume Laterality Blood specimen 12/11/2016 9:05 AM 017 9:06 (specimen) CDT AM CDT Nalini Eli MD LAB - BLOOD BANK TEST ORDER Performing Organization Address City/State/ZIP Code Phon e Number [facility] [address] [place] [address] [facility] Echocardiogram Complete (12/10/2016 9:05 AM CDT) Anatomical Region Laterality Modality Echocardiography Specimen (Source) Anatomical Collection Method Collection Time Re ceived Time Location / / Volume Laterality 12/10/2016 8:00 AM CDT Narrative 12/10/2016 9:23 AM CDT [id number]^CADE^NORA^VINCE ?Study ID: [id number] ?[facility] ?[facility] ?[address] ?[place] [address] ? Echocardiogram __ Name: DEANN KING Study [...] 03/07/2017. Gestational age: 27w4d. Deli very at: [place]. Specific Indication: echocar diogram performed for family [...] the left atriu m. There is laminar acgcq-rt-vjbp shunting across the foramen ovale. Atrioventricular valves: [...] Procedure Note Brice Lloyd MD - [id number]^CADE^NORA^VINCE Study ID: [id number] [facility] [place] [address] Echocardiogram __ Name: DEANN KING Study Date: 12/10/2016 08:00 AM Patient Location: [facility] Gender: Female Patient Class: Inpatient : 1980 Age: 36 yrs Ordering Provider: NORA MOHAMUD Performed By: Krys Servin RDCS Reading Physician: Brice Lloyd MD Reason For Study: Other, Please Specify in Comments Data: Number of fetuses: This is a espinoza gestation. Due date: 03/07/2017. Gestational age: 27w4d. Deli very at: [place]. Specific Indication: echocar diogram performed for family [...] the left atriu m. There is laminar nmfys-lq-ljfd shunting across the foramen ovale. Atrioventricular valves: [...] Lloyd MD 12/10/2016 09:23 AM Nora Vince [facility] ECHO ORDERABLES Maternal US Comprehensive [...] DEANN KING Study Date: 9:10am Pat. NO: [id number] Referring ??: CHRIST LOZADA Site: [facility] Promotions Officer: Jay Lu : 1980 Age: 36 INDICATION [...] 2 lb 1 ?oz Calculated by ?Hadlock ([id number]) Head / Face / Neck Biometry: Computational Geneticist ?3.9 ?mm ? Amniotic Fluid / FHR: [...] from the original. Comp Follow Up Pat. Name:FERNANDO FRANSISCOReymundo Date:12/08 9:10am Pat. NO: [id number] MD:CHRIST BHAT ON [facility]Yesenia Sen RDMS DOB:1980Age:36 INDICATION Premature Rupture of Membranes ( PPROM) Complete previa. METHOD Transabdominal ultrasound examination, [facility] ANTEPARTUM inpatient exam. View: Suboptimal view: [...] 2 lb 1 oz Calculated by Flora ([id number]) Head / Face / Neck Biometry: Computational Geneticist 3.9 mm Amniotic Fluid / FHR: AF [...] 8/8: Biophysical profile score MATERNAL STRUCTURES Cervix Not examined. Right Ovary Not examined. Left Ovary Not examined. RECOMMENDATION We discussed the findings on today's ulzuhair rasound with the patient. surveillance with twice-weekly [...] MARCELLA consistent with PPROM. Rossana Barker MD [facility] US ORDERABLES Wound Culture Aerobic Bacterial (12/07/2016 6:00 PM CDT) [facility] Method Time Signature Specimen Leg Wound [...] CDT PM CDT structure) Comment: Wound Rossana aBrker MD LAB - MICRO GENERAL ORDERABL ES Performing Organization Address City/[facility] Code Phon e Number INFECTIOUS DISEASES [address] [place] [address] DIAGNOSTIC LABORATORY, [facility] INFECTIOUS DISEASE [address] [place] [address], [facility] DIAGNOSTIC LABORATORY Methicillin resistant staph aureus cult (12/07/2016 6:00 PM CDT) [facility] Method Time Signature Specimen Wound [facility]ITY [facility] EAST BANK Special Specimen 12/07/2016 UNIVERSITY OF Requests collected in 7:06 PM CDT [facility] (white cap) Culture Micro Canceled, 12/07/2016 UNIVERSITY OF Test credited 8:13 PM CDT [facility] BANK Culture Micro Test 12/07/2016 UNIVERSITY OF reordered as 8:13 PM CDT [facility] EAST BANK Specimen Anatomical Collection Method Collection Time Receive d Time (Source) Location / / Volume Laterality Specimen from 12/07/2016 6:00 PM 12/08/19 17 6:21 wound (specimen) CDT PM CDT Rossana Barker MD LAB - MICRO GENERAL ORDERABL ES Performing Organization Address City/State/ZIP Code Phon e Number [address] [address] [facility] with free T4 reflex (12/07/2016 3:43 PM CDT) P athologist Signature TSH 3.09 0.40 - 4.00 12/09/2016 [facility] mU/L 5:39 PM CDT [facility] Specimen Anatomical Collection Method Collection Time Receive d Time (Source) Location / / Volume Laterality 12/07/2016 3:43 PM 7 3:44 CDT PM CDT Nora Leyva MD LAB - BLOOD ORDERABLES Performing Organization Address City/State/ZIP Code Phon e Number [facility] [address] [place] [address] [facility] Rubella Antibody IgG Quantitative (12/07/2016 3:43 PM CDT) Analysis Performed At Path logist Time Signature Rubella Antibody 7 IU/mL 12/09/2016 UNIVERSITY O F IgG Quantitative 11:02 AM CDT [facility] Comment: Negative Reference Range: ??Unvaccinated Negative 0-7 IU/mL Vaccinated or previous exposure Positive 10 IU/ml or greater Specimen Anatomical Collection Method Collection Time Receive d Time (Source) Location / / Volume Laterality 12/07/2016 3:43 PM 7 3:44 CDT PM CDT Nora Leyva MD LAB - BLOOD ORDERABLES Performing Organization Address City/State/ZIP Code Phon e Number [facility] [address] [place], [place] [id number] [place] [address] (ABNORMAL) Hepatitis C RNA quantitative (12/07/2016 3:43 PM CDT) [facility] Method Time Signature HCV RNA Quant 7,413,209 HCVND^HCV 12/09/2016 [facility] IU/ml (A) RNA Not 12:19 PM CDT [facility] [IU]/mL BANK Comment: The LEONARDO AmpliPrep/LEONARDO TaqMan [...] (H) <1.2 Log IU/mL 12/09/2016 12:19 PM [facility] Qt [facility] Specimen Anatomical Collection Method Collection Time Receive d Time (Source) Location / / Volume Laterality Blood specimen 12/07/2016 3:43 PM 017 3:44 (specimen) CDT PM CDT Nora Leyva MD LAB - BLOOD ORDERABLES Performing Organization Address City/[facility]/ZIP Code Phon e Number [facility] [address] [place] [address] [facility] hemoglobin stain Kleihauer (12/07/2016 3:43 PM CDT) Patholo gist Method Time Signature Kleihauer-Bet No cells seen 12/07/2016 UNIVE RSITY OF ke Rhogam not required 7:22 PM CDT [place] [facility] Patient Rh positive [facility] Test performed at [facility] [place] BANK Specimen Anatomical Collection Method Collection Time Receive d Time (Source) Location / / Volume Laterality Blood specimen 12/07/2016 3:43 PM 017 3:45 (specimen) CDT PM CDT Nora Leyva MD LAB - BLOOD BANK TEST ORDER Performing Organization Address City/[facility]/ZIP Code Phon e Number [address] [address] [facility] Fibrinogen activity (12/07/2016 3:43 PM CDT) P athologist Signature Fibrinogen 362 200 - 420 12/07/2016 UNIVERSITY OF mg/dL 5:44 PM CDT [facility] Specimen Anatomical Collection Method Collection Time Receive d Time (Source) Location / / Volume Laterality Blood specimen 12/07/2016 3:43 PM 017 3:44 (specimen) CDT PM CDT Nora Leyva MD LAB - BLOOD ORDERABLES Performing Organization Address City/State/ZIP Code Phon e Number [address] [address] [facility] Partial thromboplastin time (12/07/2016 3:43 PM CDT) P athologist Signature PTT 27 22 - 37 sec 12/07/2016 [facility] 5:44 PM CDT [facility] Specimen Anatomical Collection Method Collection Time Receive d Time (Source) Location / / Volume Laterality Blood specimen 12/07/2016 3:43 PM 017 3:44 (specimen) CDT PM CDT Nora Leyva MD LAB - BLOOD ORDERABLES Performing Organization Address [facility]/ZIP [facility] [place] Phon e Number [address] [address] [facility] INR (12/07/2016 3:43 PM CDT) P athologist Signature INR 1.06 0.86 - 1.14 12/07/2016 [facility] 5:44 PM T [facility] Specimen Anatomical Collection Method Collection Time Receive d Time (Source) Location / / Volume Laterality Blood specimen 12/07/2016 3:43 PM 017 3:44 (specimen) CDT PM CDT Nora Leyva MD LAB - BLOOD ORDERABLES Performing Organization Address City/[facility] Code Phon e Number [address] [address] [facility] (ABNORMAL) Comprehensive metabolic panel (12/07/2016 3:43 PM CDT) P athologist Signature Sodium 141 133 - 144 12/07/2016 [facility] mmol/L 4:08 PM CDT [facility] Potassium 3.4 3.4 - 5.3 12/07/2016 [facility] mmol/L 4:08 PM CDT [facility] Chloride 108 94 - 109 12/07/2016 [facility] mmol/L 4:08 PM CDT [facility] Carbon Dioxide 21 20 - 32 12/07/2016 [facility] mmol/L 4:08 PM CDT [facility] Anion Gap 12 3 - 14 12/07/2016 [facility] mmol/L 4:08 PM CDT [facility] Glucose 88 70 - 99 12/07/2016 [facility] mg/dL 4:08 PM CDT [facility] Urea Nitrogen 6 (L) 7 - 30 12/07/2016 [facility] mg/dL 4:08 PM CDT [facility] Creatinine 0.55 0.52 - 12/07/2016 [facility] 1.04 mg/dL 4:08 PM [facility] GFR Estimate >90 >60 12/07/2016 [facility] mL/min/1.7 4:[address] Comment: Non GFR Calc GFR Estimate If >90 >60 mL/min/1.7m2 12/07/2016 4:08 P M [facility] Black [facility] Comment: GFR Calc Calcium 8.1 (L) 8.5 - 10.1 12/07/2016 4:08 PM [facility] mg/dL [facility] Bilirubin Total 0.4 0.2 - 1.3 12/07/2016 4:08 PM [facility] mg/dL [facility] Albumin 2.5 (L) 3.4 - 5.0 g/dL 12/07/2016 4:08 PM [facility] Protein Total 6.1 (L) 6.8 - 8.8 g/dL 12/07/2016 4:08 PM [facility] Alkaline Phosphatase 69 40 - 150 U/L 12/07/2016 4:08 PM [facility] ALT 26 0 - 50 U/L 12/07/2016 4:08 PM [facility] AST 21 0 - 45 U/L 12/07/2016 4:08 PM [facility] Specimen Anatomical Collection Method Collection Time Receive d Time (Source) Location / / Volume Laterality Blood specimen 12/07/2016 3:43 PM 017 3:44 (specimen) CDT PM CDT Nora Leyva MD LAB - BLOOD ORDERABLES Performing Organization Address City/State/ZIP Code Phon e Number [facility] [address] [place] [address] [facility] Urine Culture Aerobic Bacterial (12/07/2016 2:55 PM CDT) Component Value Ref Test Analysis Performed At [facility] Range Method Time Signature Specimen Unspecified Urine INFECTIOUS Description DISEASE DIAGNOSTIC LABORATORY Special Specimen received 12/07/2016 [facility] in preservative 7:19 PM [facility] Culture Micro >100,000 colonies/mL 12/08/2016 INFE CTIOUS mixed urogenital evelina 8:55 PM CDT DISEA SE Susceptibility testing not routinely done DIAGNOSTIC LABORATORY Specimen (Source) Anatomical Collection Method Collection Time Re ceived Time Location / / Volume Laterality Unspecified Urine 12/07/2016 2:55 017 3:51 PM CDT PM CDT oNra Leyva MD LAB - MICRO GENERAL ORDERABL ES Performing Organization Address City/State/ZIP Code Phon e Number INFECTIOUS DISEASES [address] [place] [address] DIAGNOSTIC LABORATORY, [facility] INFECTIOUS DISEASE [address] [place] [address], [facility] DIAGNOSTIC LABORATORY [address] [address] (ABNORMAL) UA reflex to Microscopic and Culture (12/07/2016 2:55 PM CDT) [facility] Method Time Signature Color Urine Yellow 12/07/2016 [facility] 3:37 PM CDT [facility] Appearance Urine Clear 12/07/2016 [facility] 3:37 PM CDT [facility] Glucose Urine Negative NEG^Negat 12/07/2016 [facility] paula mg/dL 3:37 PM CDT [facility] Bilirubin Urine Negative NEG^Negat 12/07/2016 [facility] paula 3:37 PM CDT [facility] Ketones Urine Negative NEG^Negat 12/07/2016 [facility] paula mg/dL 3:37 PM CDT [facility] Specific [place] 1.015 1.003 - 12/07/2016 [facility] Urine 1.035 3:37 PM CDT [facility] Blood Urine Negative NEG^Negat 12/07/2016 [facility] paula 3:37 PM CDT [facility] pH Urine 6.5 5.0 - 7.0 12/07/2016 [facility] pH 3:37 PM CDT [facility] Protein Albumin 10 (A) NEG^Negat 12/07/2016 [facility] Urine paula mg/dL 3:37 PM CDT [facility] Urobilinogen Normal 0.0 - 2.0 12/07/2016 [facility] mg/dL mg/dL 3:37 PM CDT [facility] Nitrite Urine Negative NEG^Negat 12/07/2016 [facility] paula 3:37 PM CDT [facility] Leukocyte Moderate (A) NEG^Negat 12/07/2016 [facility] Esterase Urine paula 3:37 PM CDT [facility] Source Midstream 12/07/2016 [facility] Urine 3:23 PM T [facility] RBC Urine 1 0 - 2 12/07/2016 [facility] /HPF 3:49 PM T [facility] WBC Urine 7 (H) 0 - 2 12/07/2016 [facility] /HPF 3:49 PM T [facility] Bacteria Urine Few (A) NEG^Negat 12/07/2016 [facility] paula /HPF 3:49 PM T [facility] Squamous 1 0 - 1 12/07/2016 [facility] Epithelial /HPF /HPF 3:49 PM T [facility] Mucous Urine Present (A) NEG^Negat 12/07/2016 [facility] paula /LPF 3:49 PM [facility] Specimen (Source) Anatomical Collection Method Collection Time Re ceived Time Location / / Volume Laterality Examination of URINE SPECIMEN 12/07/2016 2:55 12/08/19 17 3:22 midstream urine OBTAINED BY CLEAN PM CDT PM CDT specimen CATCH PROCEDURE / (procedure) Unknown Nora Leyva MD LAB - URINE ORDERABLES Performing Organization Address City/State/ZIP Code Phon e Number U OF [facility] [address] [place] [address] [facility] OF M [facility] Drug abuse scrn 7 UR (/) (RH, SH, UR) (12/07/2016 2:55 PM CDT) [facility] Method Time Signature Amphetamine Qual Negative NEG^Negat 12/07/2016 [facility] Urine paula 3:48 PM T [facility] Comment: Cutoff for a negative amphetami ne is 500 ng/mL or less. Cannabinoids Qual Negative NEG^Negative 12/07/2016 3:48 PM [facility] Urine [facility] Comment: Cutoff for a negative cannabino id is 50 ng/mL or less. Cocaine Qual Urine Negative NEG^Negative 12/07/2016 3:48 PM [facility] Comment: Cutoff for a negative cocaine i s 300 ng/mL or less. Opiates Qualitative Negative NEG^Negative 12/07/2016 3:48 P M [facility] Urine CDT [facility] Comment: Cutoff for a negative opiate is 300 ng/mL or less. Pcp Qual Urine Negative NEG^Negative 12/07/2016 3:48 PM CDT [facility] Comment: Cutoff for a negative PCP is 25 ng/mL or less. Specimen Anatomical Collection Method Collection Time Receive d Time (Source) Location / / Volume Laterality Urine specimen URINE SPECIMEN 12/07/2016 2:55 PM 12/07 3:22 (specimen) OBTAINED BY CLEAN CDT PM CDT CATCH PROCEDURE / Unknown Nora Leyva MD LAB - URINE ORDERABLES Performing Organization Address City/[facility] Phon e Number [address] Chlamydia trachomatis PCR (12/07/2016 2:54 PM CDT) Patholo gist Method Time Signature Specimen Vagina 12/07/2016 [facility] Description 3:13 PM CDT [facility] Chlamydia Negative NEG^Negat 12/08/2016 [facility] Trachomatis PCR paula 1:55 PM CDT [facility] Comment: Negative for C. trachomatis rRNA by prescott scription mediated amplification. A negative result by mail teller media kris amplification does not preclude the [...] MICRO GENERAL ORDERABL ES Performing Organization Address City/[facility] Phon e Number [facility] [address] Neisseria gonorrhoeae PCR (12/07/2016 2:54 PM CDT) Analysis Performed At Patho logist Time Signature Specimen Vagina 12/07/2016 [facility] Descrip 3:13 PM CDT [facility] N Gonorrhea Negative NEG^Negati 12/08/2016 [facility] PCR ve 1:55 PM CDT [facility] Comment: Negative for N. gonorrhoeae rRNA by prescott scription mediated amplification. A negative result by mail teller media kris amplification does not preclude the [...] MICRO GENERAL ORDERABL ES Performing Organization Address City/[facility]/ZIP Code Phon e Number [facility] [address] [place], [place] [id number] [place] [address] Wet prep (12/07/2016 2:54 PM CDT) Component Value Ref Test Analysis Performed At [employer] Range Method Time Signature Specimen Vagina [facility] Description [facility] Wet Prep No Trichomonas 12/07/2016 [facility] seen 3:34 PM CDT [facility] Wet Prep No yeast seen 12/07/2016 [facility] 3:34 PM CDT [facility] Wet Prep Moderate 12/07/2016 [facility] PMNs seen 3:34 PM CDT [facility] Wet Prep No clue cells 12/07/2016 [facility] seen 3:34 PM CDT [facility] Specimen Anatomical Collection Method Collection Time Receive d Time (Source) Location / / Volume Laterality Specimen from 12/07/2016 2:54 PM 12/08/19 17 3:10 vagina CDT PM CDT (specimen) Nora Leyva MD LAB - MICRO GENERAL ORDERABL ES Performing Organization Address City/[facility]/ZIP Code Phon e Number [address] (ABNORMAL) Group B strep PCR (12/07/2016 2:54 PM CDT) [employer] Method Time Signature Group B Strep Vaginal 12/07/2016 [facility] PCR Spec Valdemar Rectal 2:58 PM CDT [facility] Group B Strep Positive (A) NEG^Negat 12/08/2016 [facility] F PCR paula 1:27 PM CDT [facility] Comment: Positive: GBS DNA detected, presumed pos itive for GBS. Assay performed on incubated broth cultu re of specimen using Fanminder real-time PCR. Specimen Anatomical Collection Method Collection Time Receive d Time (Source) Location / / Volume Laterality Vaginal Rectal 12/07/2016 2:54 PM 017 3:14 CDT PM CDT Nora Leyva MD LAB - MICRO GENERAL ORDERABL ES Performing Organization Address City/State/ZIP Code Phon e Number [facility] [address] [place], [place] [id number] [place] [id number] [place] [address] ABO/Rh type and screen (12/07/2016 2:41 PM CDT) [facility] Bridj Method Time Signature ABO B 12/07/2016 [facility] 6:08 PM CDT [facility] RH(D) Pos [facility] Antibody Neg 12/07/2016 [facility] Screen 6:08 PM CDT [facility] Test Valid [facility] 12/07/2016 [facility] [place] 5:31 PM CDT [facility] [facility] Specimen 12/10/2016 12/07/2016 [facility] Expires 5:31 PM CDT [facility] Specimen Anatomical Collection Method Collection Time Receive d Time (Source) Location / / Volume Laterality Blood specimen 12/07/2016 2:41 PM 017 2:44 (specimen) CDT PM CDT Rossana Barker MD LAB - BLOOD BANK TEST ORDER Performing Organization Address City/[facility]/ZIP Code Phon e Number [address] [address] [facility] (ABNORMAL) CBC with platelets (12/07/2016 2:41 PM CDT) [facility] Bridj Method Time Signature WBC 8.4 4.0 - 11.0 12/07/2016 [facility] 10e9/L 2:47 PM CDT [facility] RBC Count 3.10 (L) 3.8 - 5.2 12/07/2016 [facility] 10e12/L 2:47 PM CDT [facility] Hemoglobin 9.4 (L) 11.7 - 12/07/2016 [facility] 15.7 g/dL 2:47 PM CDT [facility] Hematocrit 28.2 (L) 35.0 - 12/07/2016 [facility] 47.0 % 2:47 PM CDT [facility] MCV 91 78 - 100 12/07/2016 [facility] fl 2:47 PM CDT [facility] MCH 30.3 26.5 - 12/07/2016 [facility] 33.0 pg 2:47 PM CDT [facility] MCHC 33.3 31.5 - 12/07/2016 [facility] 36.5 g/dL 2:47 PM CDT [facility] RDW 17.1 (H) 10.0 - 12/07/2016 [facility] 15.0 % 2:47 PM CDT [facility] Platelet Count 185 150 - 450 12/07/2016 [facility] 10e9/L 2:47 PM CDT [facility] Specimen Anatomical Collection Method Collection Time Receive d Time (Source) Location / / Volume Laterality Blood specimen 12/07/2016 2:41 PM 017 2:42 (specimen) CDT PM CDT Rossana Barker MD LAB - BLOOD ORDERABLES Performing Organization Address City/State/ZIP Code Phon e Number [facility] [address] [place] [address] [facility] ([place]NORMAL) Referral sensitivity (12/07/2016 1:27 PM CDT) Component Value Ref Test Analysis Performed At [facility] Range Method Time Signature Specimen Vaginal [...] Code Phon e Number INFECTIOUS DISEASES [address] [place] [address] DIAGNOSTIC LABORATORY, [facility] INFECTIOUS DISEASE [address] [place] [address], [facility] DIAGNOSTIC LABORATORY documented in this encounter Visit Diagnoses Not on filedocumented in this encounter Administered Medications Inactive Administered Medications - up to 3 most recent administrations Medication Order MAR Action Action Date Dose Rate Site acetaminophen (TYLENOL) tablet Given 12/27/2016 12:40 PM SEAT NAILER 975 mg 975 mg 975 mg, Oral, EVERY 8 HOURS, First dose on Fri12/25/16 at 0000, For 3 days, Do not use if patient has an active opioid/acetaminophen analgesic order for pain Maximum acetaminophen dose from all sources = 75 mg/kg/day not to exceed 4 grams/day., Post-procedure Given 12/27/2016 2:07 AM SEAT NAILER 975 mg Given 12/26/2016 6:00 PM SEAT NAILER 975 mg bacitracin ointment Given 12/27/2016 8:12 AM SEAT NAILER Topical, 3 TIMES DAILY, First dose on Fri12/22/16 at 1400, Apply to areas of picking. Given 12/25/2016 1:01 PM SEAT NAILER Given 12/24/2016 7:56 AM SEAT NAILER benzocaine (ORAJEL MAXIMUM STRENGTH) 20 % gel Given 12/24/2016 9:19 AM SEAT NAILER Mouth/Throat, 4 TIMES DAILY PRN, moderate pain, Starting on Fri12/23/16 at 0935, Apply to side of tongue near sore bisacodyl (DULCOLAX) Suppository 10 mg Given 12/25/2016 9:53 PM SEAT NAILER 10 mg 10 mg, Rectal, DAILY PRN, constipation, Starting on Fri12/25/16 at 2148, Start POD 2, Post-procedure buprenorphine (SUBUTEX) sublingual table t 2 mg Given 12/27/2016 8:10 AM SEAT NAILER 2 mg 2 mg, Sublingual, 5 TIMES DAILY, First dose on 12/07/16 at 1545 Given 12/27/2016 4:06 AM SEAT NAILER 2 mg Given 12/26/2016 10:38 PM SEAT NAILER 2 mg buPROPion (WELLBUTRIN SR) 12 hr tablet 1 50 mg Given 12/27/2016 8:10 AM SEAT NAILER 150 mg 150 mg, Oral, DAILY, First dose on Fri12/17/16 at 0800, DO NOT CRUSH. Given 12/26/2016 8:23 AM SEAT NAILER 150 mg Given 12/25/2016 7:52 AM SEAT NAILER 150 mg diphenhydrAMINE (BENADRYL) capsule 25 mg Given 12/25/2016 7:23 PM SEAT NAILER 25 mg 25 mg, Oral, EVERY 6 [...] emollient (VANICREAM) cream Given 12/24/2016 9:19 AM SEAT NAILER Topical, EVERY 2 HOURS PRN, other, area of dry skin, Starting on Fri12/15/16 at 1239, Apply to areas of dry skin hydrocortisone (CORTAID) 1 % cream Given 12/27/2016 8:12 AM SEAT NAILER Topical, 2 TIMES DAILY, First dose on Fri12/17/16 at 2115, Apply to upper arms and left abdomen Given 12/25/2016 8:09 AM SEAT NAILER Given 12/23/2016 8:48 AM SEAT NAILER Left Arm ibuprofen (ADVIL/MOTRIN) tablet 600 mg Given 12/27/2016 9:24 AM SEAT NAILER 600 mg 600 mg, Oral, EVERY 6 HOURS RT, First dose (after last modification) on Zoe 12/26/16 at 0800, Ibuprofen to start after toradol finishes Given 12/27/2016 3:07 AM SEAT NAILER 600 mg Given 12/26/2016 9:01 PM SEAT NAILER 600 mg levothyroxine (SYNTHROID/LEVOTHROID) tablet Given 12/18 8:10 AM SEAT NAILER 150 mcg 150 mcg 150 mcg, Oral, DAILY, First dose (after last modification) on Fri12/11/16 at 0800, Separate oral administration of iron- or calcium-containing products and levothyroxine by at least 4 hours. Given 12/26/2016 8:24 AM SEAT NAILER 150 mcg Given 12/25/2016 7:52 AM SEAT NAILER 150 mcg magic mouthwash suspension (diphenhydramine, lidocaine , aluminum-magnesium & simethicone) 10 mL, Swish & Swallow, EVERY 6 HOURS MS N, mouth sores, Starting on Tu12/24/16 at 1014 nicotine polacrilex (NICORETTE) gum 2 mg 2 mg, Buccal, EVERY 1 HOUR PRN, smoking cessation, Sta rting on 12/08/16 at 1557, Gum should be chewed slowly until it tingles, then placed between cheek and gum: when tingle gone, repeat process until tingle kirk e (about 30 minutes). oxyCODONE IR (ROXICODONE) tablet 15-20 m g Given 12/27/2016 12:40 PM SEAT NAILER 20 mg 15-20 mg, Oral, EVERY 3 HOURS PRN, moderate to severe pain, Starting on Fri12/25/16 at 1645, Patient is an opioid tolerant patient and will require higher narcotic doses due to buprenorphine. Given 12/27/2016 9:24 AM SEAT NAILER 20 mg Given 12/27/2016 6:21 AM SEAT NAILER 20 mg potassium chloride (KLOR-CON) Packet 20- [...] to opioids., Post-procedure Given 12/26/2016 9:01 PM SEAT NAILER 2 tablets Given 12/26/2016 8:23 AM SEAT NAILER 2 tablets simethicone (MYLICON) chewable tablet 80 mg Given 12/26/2016 1:54 PM SEAT NAILER 80 mg 80 mg, Oral, 4 TIMES DAILY PRN, other, gas, Starting on Fri12/25/16 at 0352, Chew., Post-procedure Given 12/26/2016 6:36 AM SEAT NAILER 80 mg Given 12/26/2016 12:31 AM SEAT NAILER 80 mg sodium chloride (OCEAN) 0.65 % nasal spray Given 12/08 10:57 AM CDT 1 spray 1 spray 1 spray, Both Nostrils, EVERY 1 HOUR PRN, congestion, Starting on 12/08/16 at 1027 sodium chloride (PF) 0.9% PF flush 3 mL Given 12/26/2016 6:58 AM SEAT NAILER 3 mLs 3 mL, Intracatheter, EVERY 1 HOUR PRN, line flush, for peripheral IV flush post IV meds, Starting on Fri12/25/16 at 0352, Post-procedure Given 12/26/2016 5:07 AM SEAT NAILER 3 mLs Given 12/26/2016 1:52 AM SEAT NAILER 3 mLs venlafaxine (EFFEXOR-ER) 24 hr tablet 15 0 mg Given 12/27/2016 8:10 AM SEAT NAILER 150 mg 150 mg, Oral, DAILY WITH BREAKFAST, First dose (after last modification) on Fri12/09/16 at 0800, DO NOT CRUSH. Given 12/26/2016 8:23 AM SEAT NAILER 150 mg Given 12/25/2016 11:12 AM SEAT NAILER 150 mg documented in this encounter Active and Recently Administered Medications Times are shown in SEAT NAILER. Scheduled Medication Order 12/25/2016 12/26/2016 12/27/2016 acetaminophen [...] Antonia Hidalgo RN)2302 (Given - Provider: Yessenia Julian, GENARO) buPROPion (WELLBUTRIN SR) 12 hr tablet 150 mg 0218 (Au to Hold - Provider: Orders Generic Provider - Reason: Transfer to a procedural area)0306 (Unhold - Provider: Orders Generic Provider)0752 (Given - Provider: Fransisca Thapa, GENARO) 0823 (Given - Provider: Hyacinth Wolf RN) 0810 (Given - Provider: Brenna Verduzco RN) 150 mg, Oral, DAILY, First dose [...] RN)1218 (New Bag - Provider: Maria Antonia Hidalgo RN)2034 (New Bag - Provider: Yessenia Julian, GENARO) [...] HYDROmorphone (DILAUDID) Loading Dose ad ministered from INVESTIGATOR NARCOT[employer] 0.2-0.3 mg (COMPLETED) 0336 (Given - Provider: Khloe Elmore, GENARO) 0.2-0.3 mg, Intravenous, IN[employer] LOADING DOS E, Fri12/25/16 at 0000, For 1 dose, LOADING DOSE (bolus) with start of INVESTIGATOR NARCOTICS. DO NOT GIVE IF A LOADING BOLUS DOSE HAS ALREADY BEEN GIVEN. (If loading dose not given from INVESTIGATOR [employer]ARC[employer], bar code scan must be overridden to chart dose)., Pos t-procedure HYDROmorphone (DILAUDID) [employer] 1 mg/mL (CANCELED) 0100 ( New Syringe/Cartridge - Provider: Lisa Rubio RN)0218 (Auto Hold - Provider: Orders Generic Provider - Reason: Transfer to a procedural area)0253 (Unhold - Provider: Marleny Kang MD) INVESTIGATOR [employer]ARC[employer] dose (mg): 0.2, Max INVE[employer]IGATOR [employer] dose (mg): 0 .3, Lockout Interval (min): 10 minutes, [employer] Continuous Rate (mg/hr): CONTINUOUS RATE IS NOT RECOMMENDED FOR OPIOID NAIVE PATIENTS, Hour Limit (mg): 1.8, First dos e on Fri12/25/16 at 0000, Do NOT give an y additional opioids while on INVESTIGATOR NARCOTICS. When transitioning from INVESTIGATOR NARCOTICS to oral opioids MAY give first oral opioid dose 30 minutes PRIOR to discontinuation of INVESTIGATOR NARCOTICS., Intravenous, Post-procedure HYDROmorphone (DILAUDID) IN[employer] 1 mg/mL (CANCELED) 0454 ( Rate/Dose Verify - Provider: Khloe Elmore RN)0508 (Canceled Entry - Provider: Khloe Elmore RN)0624 (Shift Total - Provider: Khloe Elmoer RN) INVESTIGATOR [employer]ARC[employer] dose (mg): 0.2, Max INVESTIGATOR [employer] dose (mg): 0 .3, Lockout Interval (min): 10 minutes, IN[employer] Continuous Rate (mg/hr): CONTINUOUS RATE IS NOT RECOMMENDED FOR OPIOID NAIVE PATIENTS, Hour Limit (mg): 2, First dose on Fri12/25/16 at 0430, Do NOT give any additional opioids while on INVESTIGATOR NARCOTICS. When transitioning from INVESTIGATOR NARCOTICS to oral opioids MAY give first oral opioid dose 30 minutes PRIOR to discontinuation of INVESTIGATOR NARCOTICS., Intravenous, Post-procedure HYDROmorphone (DILAUDID) [employer] 1 mg/mL (CANCELED) 0845 ( Canceled Entry - Provider: Fransisca Gates RN)0901 (Rate/Dose Verify - Provider: Fransisca Gates RN)1350 (Stopped - Provider: Maria Antonia Hidalgo RN) INVESTIGATOR [employer]ARC[employer] dose (mg): 0.3, Max INVESTIGATOR [employer] dose (mg): 0 .5, Lockout Interval (min): 10 minutes, [employer] Continuous Rate (mg/hr): 0.3, MAX Continuous Rate [...] refused)2042 (Given - Provider: Yessenia Julian, GENARO) 08 (Given - Provider: Hyacinth Wolf RN)2100 (Given [...] RN)2033 (Given - Provider: Yessenia Julian, GENARO) 0229 [...] Generic Provider)1112 (Given - Provider: Maria Antonia Hidalgo RN) 0823 (Given - Provider: Hyacinth Wolf RN) 0810 (Given - Provider: Brenna E Salzer, RN) 150 mg, Oral, DAILY WITH BREAKFAST, Firs t dose on Fri12/09/16 at 0800, DO NOT CRUSH. Continuous Medication Order 12/25/2016 12/26/2016 12/27/2016 lactated ringers infusion (CANCELED) 0506 (Rate/Dose C hange - Provider: Khloe Elmore, GENARO)0618 (New Bag - Provider: Khloe Elmore, RN)1740 (New Bag - Provider: Maria Antonia Hidalgo RN) at 125 mL/hr, Intravenous, CONTINUOUS, S [...] mg 2153 (Given - P rovider: Yessenia Julina RN) 10 mg, Rectal, DAILY PRN, constipation, [...] diphenhydrAMINE (BENADRYL) capsule 25 mg(Linked Group 1) 1923 (Given - Provider: Maria Antonia Hidalgo, RN) 25 mg, Oral, EVERY 6 HOURS PRN, itching, Starting Fri12/25/16 at 0352, Post-procedure diphenhydrAMINE (BENADRYL) injection 25 mg(Linked Grou p 1) 1922 (See Alternative - Provider: Maria Antonia Hidalgo, RN) 25 mg, Intravenous, EVERY 6 HOURS [...] Lisa Rubio, GENARO)0048 (Given - Provider: Lisa Rubio RN)0103 (Given - Provider: Lisa Rubio RN) 50 [...] mg (CANCELED ) 0507 (Given - Provider: Lcuialamberto Cotton RN)0657 (Given - Provider: Lucia Cotton RN)0834 (Given - Provider: Hyacinth Wolf RN) 0.2-0.3 mg, Intravenous, EVERY 1 HOUR MS N, Starting Zoe 12/26/16 at 0407, Until Zoe 12/26/16 at 0911, moderate to severe pain, Give IV Push undiluted up to 4 mg. Each 2mg over 2-5 minutes. HYDROmorphone (PF) (DILAUDID) injection 0.3-0.5 mg (CA NCELED) 1642 (Given - Provider: Maria Antonia Hidalgo RN)182 (Given - Provider: Maria Antonia Hidalgo, GENARO)194 (Given - Provider: Maria Antonia Hidalgo RN)2129 (Given - Provider: Yessenia Julian RN)2234 (Given - Provider: Yessenia Julian RN) 0031 (Given - Provider: Lucia Cotton RN)0152 (Given - Provider: Lucia Cotton RN) 0.3-0.5 mg, Intravenous, EVERY 1 HOUR MS N, Starting 12/25/16 at 1559, Until Zoe 12/26/16 at 0407, [...] RN)1404 (Given - Provider: Maria Antonia Hidalgo, RN)2022 (Given - Provider: Yessenia Julian, GENARO) 022 (Given - Provider: Lucia Cotton, GENARO) 30 [...] mL, Swish & Swallow, EVERY 6 HOURS MS N, mouth sores, Starting Fri12/24/16 at 1014 [...] mg 1725 (Given - Provider: Maria Antonia Hidalgo RN)2023 (Given - Provider: Yessenia Julian RN)2335 (Given - Provider: Yessenia Julian RN) 0302 (Given - Provider: Lucia Cotton , GENARO)0601 (Given - Provider: Lucia Cotton, GENARO)0911 (Given - Provider: Hyacinth Wolf RN)1207 (Given - Provider: Hyacinth Wolf RN)1507 (Given - Provider: Hyacinth Wolf RN) 0307 (Given - Provider: Lucia Cotton, RN)0621 (Given - Provider: Lucia Cotton, GENARO)0924 (Given - Provider: Brenna Verduzco, RN)1240 (Given - Provider: Brenna Verduzco, RN) 15-20 mg, Oral, EVERY 3 HOURS PRN, moder ate to severe pain, Starting Fri12/25/16 at 1645, Patient is an opioid tolerant patient and will require higher narcotic doses due to buprenorphine. 1800 (Given - Provider: Maycol Clemons, GENARO)2101 (Given - Provider: Gudelia Clemons, RN)2359 (Given - Provider: Lucia Cotton, GENARO) oxytocin (PITOCIN) 30 units in 500 mL [...] Hidalgo RN) 0031 (Given - Provider: Lucia Cotton, GENARO)0636 (Given - Provider: Lucia Cotton, GENARO)1354 (Given - Provider: Hyacinth Wolf, GENARO) 80 mg, Oral, 4 TIMES DAILY PRN, [...] mL 0032 (Given - Provider: Lucia Cotton, RN)0152 (Given - Provider: Lucia Cotton, GENARO)0507 (Given - Provider: Lucia Cotton, RN)0658 (Given - Provider: Lucia Cotton, RN) [...]
Post-procedure documented in this encounter Care Teams Tower Cleaner Relationship Specialty Start Date End Date Luis Fernando Magana PCP - General Family Practice 12/07/16 01/19/[address] [address] documented as of this encounter
--- OUTSIDE RECORDS SUMMARY | 2021-12-13 12:38 | XMS_ITS | Encounter Summary ---
:1980 Author Organization [place] Address [address] [facility] [place] [address] Care Team Providers Name Role Phone Luis Fernando Magana Primary Care Provider Reason for Visit Reason Onset Date Comments No Show No Show 12/23/2016 Erroneous encounter-disregard 12/23/2016 Encounter Details Date Type Department Care Team Description 12/23/2016 Office Visit [facility] Edgar Workman NO SHOW ( Primary Dx); Clinic Ashly Gauthier MD ERRONEOUS ENCOUNTER--DISREGARD [address] [place] [address] [place] [phone] Social History Tobacco Use Types Packs/Day Years Used Date Smoking Tobacco: Every Day Cigarettes 0.1 10 Smokeless Tobacco: Never Comments: 5 cigarettes a day Alcohol Use Standard Drinks/Week Comments Yes 0 (1 standard drink = 0.6 oz pure Stoppe d after found out alcohol) Sex Assigned at Date Recorded Female 01/14/2020 10:57 AM MANAGER DATA WAREHOUSE documented as of this encounter Progress Notes Edgar Workman MD - 12/23/2016 12:47 PM CST This encounter was opened in error. Please disregard. GER DATA WAREHOUSE Sabina Mckay CMA - 12/23/2016 10:42 AM CST This patient was a no show for this scheduled appointment. GER DATA WAREHOUSE documented in this encounter Miscellaneous Notes Addendum Note - Edgar Workman MD - 12/23/2016 12:47 PM MANAGER DATA WAREHOUSE Addended by: EDGAR WORKMAN on: 12/23/2016 12:47 PM Modules accepted: SmartSet GER DATA WAREHOUSE documented in this encounter Plan of Treatment Upcoming Encounters Date Type Specialty Care Team Description 12/20/2021 Office Visit Wound Care Luis Camara, [place] [address] [place] [address] (Wo rk) 01/21/2022 PRE VISIT Gastroenterology Landon Warren, *-*INCOMIN G RECORDS*-* MD Luis Fernando [address] [place] [address] (Wo rk) 01/21/2022 Office Visit Gastroenterology Juanis Levi [address] [place] [phone] Luis Fernando Miles MD [address] [place] [address] documented as of this encounter Visit Diagnoses Diagnosis NO SHOW - Primary ERRONEOUS ENCOUNTER--DISREGARD documented in this encounter Care Teams Pin Pusher Relationship Specialty Start Date End Date Luis Fernando Magana PCP - General Family Practice 12/07/16 01/19/[address] [address] documented as of this encounter
--- OUTSIDE RECORDS SUMMARY | 2021-12-13 12:38 | XMS_ITS | Encounter Summary ---
:1980 Author Organization [place] Address [address] [facility] [place] [address] Care Team Providers Name Role Phone ChinoLuis Fernando morataya Primary Care Provider Encounter Details Date Type Department Care Team Description 12/20/2016 Orders Only [facility] Tarsha Torres Placenta a ccreta, [facility] MD Ann Marie antepartum ( Primary [place] Dx) [address] [facility] [address] [place] [address] Social History Tobacco Use Types Packs/Day Years Used Date Smoking Tobacco: Every Day Cigarettes 0.1 10 Smokeless Tobacco: Never Comments: 5 cigarettes a day Alcohol Use Standard Drinks/Week Comments Yes 0 (1 standard drink = 0.6 oz pure Stoppe d after found out alcohol) Sex Assigned at Date Recorded Female 01/14/2020 10:57 AM BACKGROUND INVESTIGATOR documented as of this encounter Plan of Treatment Upcoming Encounters Date Type Specialty Care Team Description 12/20/2021 Office Visit Wound Care Luis Camara, [place] [address] [place], [place] [address] (Wo rk) 01/21/2022 PRE VISIT Gastroenterology Landon Warren, *-*HEATHER Barriga RECORDS*-* MD Luis Fernando [address] [facility] [address] [place], [place] [phone] (Wo rk) 01/21/2022 Office Visit Gastroenterology Juanis Levi [address] [place] [phone] Luis Fernando Miles MD [address] [facility] [address] [place] [address] Scheduled Orders Name Type Priority Associated Diagnoses Order S chedule Teresa-Operative Procedures Routine Placenta accreta, Ordered: 12/20/2016 Worksheet ( antepartum Section, Immediate Hysterectomy) documented as of this encounter Visit Diagnoses Diagnosis Placenta accreta, antepartum - Primary documented in this encounter Care Teams History Faculty Member Relationship Specialty Start Date End Date Luis Fernando Magana PCP - General Family Practice 12/07/16 01/19/[address] [address] documented as of this encounter
--- OUTSIDE RECORDS SUMMARY | 2021-12-13 12:38 | XMS_ITS | Encounter Summary ---
:1980 Author Organization [place] Address [address] [facility] [place] [address] Care Team Providers Name Role Phone Luis Fernando Magana Primary Care Provider Encounter Details Date Type Department Care Team Description 12/23/2016 Documentation Only [facility] Edgar Alfredo, [facility] [address] [place] [address] [place] [phone] (Wo rk) Social History Tobacco Use Types Packs/Day Years Used Date Smoking Tobacco: Every Day Cigarettes 0.1 10 Smokeless Tobacco: Never Comments: 5 cigarettes a day Alcohol Use Standard Drinks/Week Comments Yes 0 (1 standard drink = 0.6 oz pure Stoppe d after found out alcohol) Sex Assigned at Date Recorded Female 01/14/2020 10:57 AM VIDEO LIBRARY ASSISTANT documented as of this encounter Progress [...] change now Will follow Edgar Alfredo M.D. [phone] O LIBRARY ASSISTANT documented in this encounter Plan of Treatment Upcoming Encounters Date Type Specialty Care Team Description 12/20/2021 Office Visit Wound Care Hoa Luis Lex, DPM [address] [place] [address] (Wo rk) 01/21/2022 PRE VISIT Gastroenterology Landon Warren, *-*WANDAIN G RECORDS*-* MD Luis Fernando [address] [phone] (Wo rk) 01/21/2022 Office Visit Gastroenterology Juanis Levi [address] [place] [phone] Luis Fernando Miles MD [address] [address] documented as of this encounter Visit Diagnoses Not on filedocumented in this encounter Care Teams Celery Wrapper Relationship Specialty Start Date End Date Luis Fernando Magana PCP - General Family Practice 12/07/16 01/19/[address] [address] documented as of this encounter
--- OUTSIDE RECORDS SUMMARY | 2021-12-13 12:39 | XMS_ITS | Encounter Summary ---
:1980 Author Organization [place] Address [address] [facility] [place] [address] Care Team Providers Name Role Phone Clinic, [facility] Primary Care Provide r Reason for Visit Reason Onset Date Comments Medication Request 11/28/2016 Bridge for Subutex, Wellbutrin Encounter Details Date Type Department Care Team Description 11/28/[address] [facility] Edgar Alfredo, Med ication Request Clinic Ashly VÁSQUEZ (Bridge for Subutex, [address] [place] Wellbutrin ) [address] [place] [phone] (Wo rk) Social History Tobacco Use Types Packs/Day Years Used Date Smoking Tobacco: Every Day Cigarettes 0.1 10 Smokeless Tobacco: Never Comments: 5 cigarettes a day Alcohol Use Standard Drinks/Week Comments Yes 0 (1 standard drink = 0.6 oz pure Stoppe d after found out alcohol) Sex Assigned at Date Recorded Female 01/14/2020 10:57 AM CRM ANALYST documented as of this encounter Miscellaneous [...] refills: 1 Last Office [place] [facility] or Health prescribing provider: 10/10/16 Next 5 appointments (look out 90 days) ?? Dec 23, 2016 9:30 AM CRM ANALYST Return Visit with Edgar Alfredo MD [facility] [place] ?? [address] [facility] [address] Controlled substance agreement on file: No. Documentation in problem list reviewed: Yes Processing: Call/fax RX monitoring program ([place]) reviewed: COMMUNITY ORGANIZATION DIRECTOR reviewed- no concerns [place] profile: [email or web address] Tooling/ Santosh Pyle RN Telephone Encounter - Mark [...] last appt on 11/26. Pt cell # [phone] Pt house # [phone] buprenorphine (SUBUTEX) 2 MG SUBL sublingual tablet Last Written Prescription Date: 10/10/16 Last Fill Quantity: 140, # refills: 1 Last Office Visit with [facility] or Health prescribing provider: 10/10/16 Next 5 appointments (look out 90 days) Dec 23, 2016 9:30 AM CRM ANALYST Return Visit with Edgar Alfredo MD [facility] [place] [address] [facility] [phone] WELLBUTRIN SR 150 MG 12 hr tablet Last Written Prescription Date: Last Fill Quantity: 60; # refills: 1 Last Office Visit with G, P or [facility] prescribing provider: 10/10/16 Next 5 appointments (look out 90 days) Dec 23, 2016 9:30 AM CRM ANALYST Return Visit with Edgar Alfredo MD [facility] ([facility]) [address] [place] [address] [address] [facility] [phone] Last PHQ-9 score on record= PHQ-9 SCORE 06/21/2013 Total Score 15 Lab Results Component Value Date AST 17 10/10/2016 Lab Results Component Value Date ALT 10/10/2016 documented in this encounter Plan of Treatment Upcoming Encounters Date Type Specialty Care Team Description 12/20/2021 Office Visit Wound Care Luis Camara DPM [address] [place] [address] (Wo rk) 01/21/2022 PRE VISIT Gastroenterology Landon Warren, *-*HEATHER G RECORDS*-* MD Luis Fernando [address] [place] [address] (Wo rk) 01/21/2022 Office Visit Gastroenterology Juanis Levi [address] [place] [phone] Luis Fernando Miles MD [address] [place] [phone] documented as of this encounter Visit Diagnoses Diagnosis Gastroesophageal reflux disease, esophag itis presence not specified - Primary Uncomplicated opioid dependence (H) Opioid type dependence, unspecified Major depressive disorder, recurrent epi sode, moderate (H) Major depressive disorder, recurrent epi sode, moderate documented in this encounter Care Teams Career Technical Counselor Relationship Specialty Start Date End Date Clinic, [facility] PCP - General 07/14/16 12/06/[address] [place] [address] [address] documented as of this encounter
--- OUTSIDE RECORDS SUMMARY | 2021-12-13 12:39 | XMS_ITS | Encounter Summary ---
:1980 Author Organization [place] Address [address] [facility] [place] [address] Care Team Providers Name Role Phone Luis Fernando Magana Primary Care Provider Reason for Visit Auth/Cert Specialty Diagnoses / Procedures Referred By Contact Refer red To Contact wet end helper Diagnoses Maternity*JEAN MARIE: 03/07/2017 Rupture premature rupture of membranes (PPROM) delivered, current hospitalization [facility] [address] [place] [address] Phone: Referral ID Status Reason Start Date Expiration Date Visits Requ ested Visits Authorized [id number] 12/09/2016 12/09/2017 1 1 Encounter Details Date Type Department Care Team Description 12/08/2016 Hospital Encounter [facility] Riccardo eddy [address] [place], [place] [phone] Social History Tobacco Use Types Packs/Day Years Used Date Smoking Tobacco: Every Day Cigarettes 0.1 10 Smokeless Tobacco: Never Comments: 5 cigarettes a day Alcohol Use Standard Drinks/Week Comments Yes 0 (1 standard drink = 0.6 oz pure Stoppe d after found out alcohol) Sex Assigned at Date Recorded Female 01/14/2020 10:57 AM HEALTH CARE FACILITY ADMINISTRATOR documented as of this encounter Medications at [...] Visit Wound Care Luis Camara, [place] [address] [place] [address] (Wo rk) 01/21/2022 PRE VISIT Gastroenterology Landon Warern, *-*HEATHER G RECORDS*-* MD Luis Fernando [address] [place] [phone] (Wo rk) 01/21/2022 Office Visit Gastroenterology Juanis Levi [address] [place] [phone] Luis Fernando Miles MD [address] [place] [address] [phone] (work) documented as of this encounter Procedures Procedure [...] STEPHANI REDDY Study Date: 9:10am Pat. NO: [id number] Referring ??: CHRIST LOZADA Site: [facility] Thermite Welder: Jay Lu : 1980 Age: 36 INDICATION Premature Rupture of Membranes ( PPROM) Complete previa. METHOD Transabdominal ultrasound examination, [facility] inpatient exam. View: Suboptimal [...] 2 lb 1 ?oz Calculated by ?[facility] ([id number]) Head / Face / Neck Biometry: Relief Driller ?3.9 ?mm ? Amniotic Fluid / FHR: [...] Pat. Name:Elizabeth REDDY Date:12/08 9:10am Pat. NO: [id number] MD:CHRIST BHAT ON [facility]Yesenia Sen RDMS :1980Age:36 INDICATION Premature Rupture of Membranes ( PPROM) Complete previa. METHOD Transabdominal ultrasound examination, [facility] inpatient exam. View: Suboptimal view: limited by maternal body habitus. Suboptimal view: limited by low amniotic fluid volume. Nicole . Number of fetuses: 1. DATING Date Details Gest. age JEAN MARIE External assessment 07/14/2016 GA: 6 w + 2 d 27 w + 2 d 03/07/2017 U/S 12/08/2016 based upon AC, BPD, Femu r, HC 26 w + 4 d 03/12/2017 [...] 2 lb 1 oz Calculated by [facility]ora ([id number]) Head / Face / Neck Biometry: Relief Driller 3.9 mm Amniotic Fluid / FHR: AF [...] PPROM. 5) Complete placenta previa. 6) BPP /, off for MARCELLA consistent with PPROM. Rossana Barker MD [facility] US ORDERABLES documented in this encounter Visit Diagnoses Not on filedocumented in this encounter Care Teams Record Searcher Relationship Specialty Start Date End Date Luis Fernando Magana PCP - General Family Practice 12/07/16 01/19/[address] [address] documented as of this encounter
--- OUTSIDE RECORDS SUMMARY | 2021-12-13 12:39 | XMS_ITS | Encounter Summary ---
:1980 Author Organization [place] Address [address] [facility] [place] [address] Care Team Providers Name Role Phone Clinic, [facility] Primary Care Provide r Reason for Visit Reason Onset Date Comments Prior Auth - Medication 10/11/2016 buprenorphine (S UBUTEX) 2 MG Encounter Details Date Type Department Care Team Description 10/11/2016 Telephone [facility] Edgar Alfredo Pri or Auth - Medication Clinic Ashly VÁSQUEZ (buprenorphine [address] [place] (SUBUTEX) 2 MG) [address] [place] [phone] (Wo rk) Social History Tobacco Use Types Packs/Day Years Used Date Smoking Tobacco: Every Day Cigarettes 0.1 10 Smokeless Tobacco: Never Comments: 5 cigarettes a day Alcohol Use Standard Drinks/Week Comments Yes 0 (1 standard drink = 0.6 oz pure Stoppe d after found out alcohol) Sex Assigned at Date Recorded Female 01/14/2020 10:57 AM END WORKER documented as of this encounter Miscellaneous Notes Telephone Encounter - Sarah Calvert MA - 10/11/2016 9:35 AM CDT Called [facility] to clarify the need for [...] (SUBUTEX) Dose: 2 MG Pharmacy confirmed as [facility] - [place], [place] - [address] [facility] [address] [facility] [address] Insurance Name: Submit via covermymeds Beat[place]: [id number] [employer] Plant Superintendent placed form in Dr. Alfredo's folder Dora Merchant October 11, 2016 at 8:28 AM documented in this encounter Plan of Treatment Upcoming Encounters Date Type Specialty Care Team Description 12/20/2021 Office Visit Wound Care Luis Camara DPM [address] [place], [place] [address] (Wo rk) 01/21/2022 PRE VISIT Gastroenterology Landon Warren, *-*INCOMIN G RECORDS*-* MD Luis Fernando [address] [place] [phone] (Wo rk) 01/21/2022 Office Visit Gastroenterology Juanis Levi [address] [place] [phone] Luis Fernando Miles MD [address] [place] [phone] documented as of this encounter Visit Diagnoses Not on filedocumented in this encounter Care Teams Varnish Maker Relationship Specialty Start Date End Date Clinic, [facility] PCP - General 07/14/16 12/06/16 [facility] [place] [address] documented as of this encounter
--- OUTSIDE RECORDS SUMMARY | 2021-12-13 12:39 | XMS_ITS | Encounter Summary ---
:1980 Author Organization [place] Address [address] [facility] [place] [address] Care Team Providers Name Role Phone Clinic, [...] [address] [place] [address] [place] [phone] (Wo rk) Social History Tobacco Use Types Packs/Day Years Used Date Smoking Tobacco: Every Day Cigarettes 0.1 10 Smokeless Tobacco: Never Comments: 5 cigarettes a day Alcohol Use Standard Drinks/Week Comments Yes 0 (1 standard drink = 0.6 oz pure Stoppe d after found out alcohol) Sex Assigned at Date Recorded Female 01/14/2020 10:57 AM SCREEN VENT BINDER documented as of this encounter Miscellaneous Notes [...] SR Dose: 150 MG Pharmacy confirmed as [facility] - [place], [place] - [address] [place] [id number] Insurance Name: Medicaid Insurance Phone: not legible Insurance Dredge Mechanic placed form in Dr. Alfredo's folder Dora Merchant October 11, 2016 at 8:43 AM documented in this encounter Plan of Treatment Upcoming Encounters Date Type Specialty Care Team Description 12/20/2021 Office Visit Wound Care Lusi Camara DPM [address] [place], [place] [phone] (Wo rk) 01/21/2022 PRE VISIT Gastroenterology Landon Warren, *-*WANDAIN G RECORDS*-* MD Luis Fernando [address] [facility] [address] [place], [place] [phone] (Wo rk) 01/21/2022 Office Visit Gastroenterology Juanis Levi [address] [place] [phone] Luis Fernando Miles MD [address] [facility] [address] [place] [address] documented as of this encounter Visit Diagnoses Not on filedocumented in this encounter Care Teams Blankbook Stitching Machine Operator Relationship Specialty Start Date End Date Clinic, [facility] PCP - General 07/14/16 12/06/[address] [place] [address] documented as of this encounter
--- OUTSIDE RECORDS SUMMARY | 2021-12-13 12:39 | XMS_ITS | Encounter Summary ---
:1980 Author Organization [place] Address [address] [facility] [place] [address] Care Team Providers Name Role Phone Luis Fernando Magana Primary Care Provider Reason for Referral - Closed Specialty Diagnoses / Procedures Referred By Contact Refer red To Contact Diagnoses Hepatitis C virus infection, unspecified chronicity Erum Manzanares MD [address] [place] [address] Referral ID Status Reason Start Date Expiration Date Visits Requ ested Visits Authorized [id number] Closed 12/13/2016 12/13/2017 1 1 Encounter Details Date Type Department Care Team Description 12/13/[address] [facility] Erum Manzanares patitis C virus [facility] Birthplace MD Tigist infection, [address] unspecified [place] [address] [address] chronicity (Primary [phone] [place] [address] Dx) [phone] (Wo rk) Social History Tobacco Use Types Packs/Day Years Used Date Smoking Tobacco: Every Day Cigarettes 0.1 10 Smokeless Tobacco: Never Comments: 5 cigarettes a day Alcohol Use Standard Drinks/Week Comments Yes 0 (1 standard drink = 0.6 oz pure Stoppe d after found out alcohol) Sex Assigned at Date Recorded Female 01/14/2020 10:57 AM 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 TEST 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 documented as of this encounter Plan of Treatment Upcoming Encounters Date Type Specialty Care Team Description 12/20/2021 Office Visit Wound Care Hoa Luis Lex, DPM 9[address] [place] [address] (Wo rk) 01/21/2022 PRE VISIT Gastroenterology Landon Warren, *-*WANDAIN G RECORDS*-* MD Luis Fernando [address] [address] (Wo rk) 01/21/2022 Office Visit Gastroenterology Juanis Levi [address] [place] [phone] Luis Fernando Miles MD [address] [address] Scheduled Referrals Name Type Priority Associated Diagnoses Order S chedule GASTROENTEROLOGY ADULT REF Referral Routine Hepatitis C vi brittny Ordered: CONSULT ONLY infection, unspecified 12/13 chronicity documented as of this encounter Visit Diagnoses Diagnosis Hepatitis C virus infection, unspecified chronicity - Primary documented in this encounter Care Teams Track Subway Repair Supervisor Relationship Specialty Start Date End Date Luis Fernando Magana PCP - General Family Practice 12/07/16 01/19/[address] [address] documented as of this encounter
--- OUTSIDE RECORDS SUMMARY | 2021-12-13 12:39 | XMS_ITS | Encounter Summary ---
:1980 Author Organization [place] Address [facility] [place] [address] Care Team Providers Name Role Phone Clinic, [facility] Primary Care Provide r Encounter Details Date Type Department Care Team Description 11/26/2016 Telephone [facility] Ann Marie Sen MD Birthplace [address] [address] [address] [facility] [phone] [place] [address] (Wo rk) Social History Tobacco Use Types Packs/Day Years Used Date Smoking Tobacco: Every Day Cigarettes 0.1 10 Smokeless Tobacco: Never Comments: 5 cigarettes a day Alcohol Use Standard Drinks/Week Comments Yes 0 (1 standard drink = 0.6 oz pure Stoppe d after found out alcohol) Sex Assigned at Date Recorded Female 01/14/2020 10:57 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 Ann Marie Sen MD LOGGING OPERATIONS INSPECTOR, PGY2 11/26/16 documented in this encounter Plan of Treatment Upcoming Encounters Date Type Specialty Care Team Description 12/20/2021 Office Visit Wound Care Luis Camara, DPM [address] [place] [address] (Wo rk) 01/21/2022 PRE VISIT Gastroenterology Landon Warren, *-*WANDAIN G RECORDS*-* MD Luis Fernando [address] [place] [address] [phone] (Wo rk) 01/21/2022 Office Visit Gastroenterology Juanis Levi [address] [place] [phone] Luis Fernando Miles MD [address] [place] [address] documented as of this encounter Visit Diagnoses Not on filedocumented in this encounter Care Teams Engine Cleaner Relationship Specialty Start Date End Date Clinic, [facility] PCP - General 07/14/16 12/06/[address] [place] [address] documented as of this encounter
--- OUTSIDE RECORDS SUMMARY | 2021-12-13 12:39 | XMS_ITS | Encounter Summary ---
:1980 Author Organization [place] Address [address] [facility] [place] [address] Care Team Providers Name Role Phone Luis Fernando Magana Primary Care Provider Reason for Visit Auth/Cert Specialty Diagnoses / Procedures Referred By Contact Refer red To Contact chief deputy sheriff Diagnoses Maternity*JEAN MARIE: 03/07/2017 Rupture premature rupture of membranes (PPROM) delivered, current hospitalization Ur [facility] [address] [place] [address] Phone: Referral ID Status Reason Start Date Expiration Date Visits Requ ested Visits Authorized [id number] 12/09/2016 12/09/2017 1 1 Encounter Details Date Type Department Care Team Description 12/19/2016 Hospital Encounter [facility] Asaf Manzanares Maternal MD Tigist [facility] 6[address] [facility] W400 606 [facility] [place] [address] [place], [place] [phone] (Wo rk) [address] [phone] Social History Tobacco Use Types Packs/Day Years Used Date Smoking Tobacco: Every Day Cigarettes 0.1 10 Smokeless Tobacco: Never Comments: 5 cigarettes a day Alcohol Use Standard Drinks/Week Comments Yes 0 (1 standard drink = 0.6 oz pure Stoppe d after found out alcohol) Sex Assigned at Date Recorded Female 01/14/2020 10:57 AM MOTOR RACER documented as of this encounter Medications at [...] Luis Camara DPM [address] [place] [address] (Wo rk) 01/21/2022 PRE VISIT Gastroenterology Landon Warren, *-*HEATHER Barriga RECORDS*-* MD Luis Fernando [address] [phone] (Wo rk) 01/21/2022 Office Visit Gastroenterology Juanis Levi [address] [place] [address] Luis Fernando Miles MD 6 [facility] 2A [place] [address] documented as of this encounter Procedures Procedure Name Priority Date/Time Associated Diagnosis Comme nts MFM BPP SINGLE Routine 12/19/2016 8:46 AM Results for this CDT procedure are i n the results section . documented in this encounter Results Maternal BPP Single (12/19/2016 8:46 AM CDT) Anatomical Region Laterality Modality Ultrasound Specimen (Source) Anatomical Collection Method Collection Time Re ceived Time Location / / Volume Laterality 12/19/2016 8:16 AM CDT Impressions 12/25/2016 9:13 AM MOTOR RACER IMPRESSION 1) Intrauterine at 28 6/7 week s gestational age. 2) The BPP is reassuring. 3) Oligohydramnios is seen consistent wi th know PPROM. 4) A complete posterior placenta previa is again seen. Narrative 12/25/2016 9:13 AM MOTOR RACER BPP Pat. Name: STEPHANI KING Study Date: 8:16am Pat. NO: [id number] Referring ??: CHRIST LOZADA Site: [facility] Reimbursement Representative: Jay Lu : 1980 Age: 36 INDICATION [...] Pat. Name:Elizabeth KING Date:12/19 8:16am Pat. NO: [id number] MD:CHRIST BHAT ON [facility]Yesenia [facility] RDMS :1980Age:36 INDICATION Premature Rupture [...] We discussed the findings on [facility]'s [facility] rasound with the patient. Continue surveillance with [facility] weekly BPP. Continue inpatient management of [...] previa is again seen. Erum Manzanares MD [facility] ORDERABLES documented in this encounter Visit Diagnoses Not on filedocumented in this encounter Care Teams Refinery Operator Visbreaking Relationship Specialty Start Date End Date Luis Fernando Magana PCP - General Family Practice 12/07/16 01/19/18 [place] [address] documented as of this encounter
--- OUTSIDE RECORDS SUMMARY | 2021-12-13 12:39 | XMS_ITS | Encounter Summary ---
:1980 Author Organization [place] Address [address] [place] [address] Care Team Providers Name Role Phone Clinic, [facility] Primary Care Provide r Encounter Details Date Type Department Care Team Description 10/31/2016 Hospital Encounter [facility] Lela Patel MD [address] [facility] [address] [place], [place] [phone] Drug dependence Maternal Italia Galarza DO [address] [facility] [address] [place] [address] affecting Medicine Center in [facility] [address] [place] [address] Social History Tobacco Use Types Packs/Day Years Used Date Smoking Tobacco: Every Day Cigarettes 0.1 10 Smokeless Tobacco: Never Comments: 5 cigarettes a day Alcohol Use Standard Drinks/Week Comments Yes 0 (1 standard drink = 0.6 oz pure Stoppe d after found out alcohol) Sex Assigned at Date Recorded Female 01/14/2020 10:57 AM SUPPLY CATALOGUER documented as of this encounter Medications at [...] Visit Wound Care Luis Camara DPM [address] [place] [address] (Wo rk) 01/21/2022 PRE VISIT Gastroenterology Landon Warren, *-*WANDAIN G RECORDS*-* MD Luis Fernando 516 [facility] 2[address] [place] [address] (Wo rk) 01/21/2022 Office Visit Gastroenterology Juanis Levi [address] [place] [address] Luis Fernando [place] MD 6 [facility] [place] [address] documented as of this encounter Procedures Procedure Name Priority Date/Time Associated Comments Diagnosis [facility] US COMPREHENSIVE Routine 10/31/2016 2:27 PM Drug dependenc e Results for this SINGLE CDT affecting procedur e are in in second trimester the resu lts section. documented in this encounter Results [facility] US Comprehensive Single (10/31/2016 2:27 PM CDT) [...] STEPHANI REDDY Study Date: 1:32pm Pat. NO: [id number] Referring ??: LUDY HOANG BURN Site: [facility] Barrow Worker Helper: Geovanna Hassan RDMS : 1980 Age: 36 [...] 1 lb 0 ?oz Calculated by ?Hadlock ([id number]-FL) Head / Face / Neck Biometry: Globe Changer ?3.6 ?mm ? Nasal bone ?6.5 ?mm [...] be vi sualized: Heart / Thorax ?RVOT. 6-kdxtxu-csbrzfd view. Gender: male. MATERNAL STRUCTURES Cervix ?Visualized, [...] Pat. Name:Elizabeth REDDY Date:10/31 1:32pm Pat. NO: [id number] MD:JOSE ALFREDO RODRIGUEZ [facility]Geovanna Hassan RDMS :1980Age:36 INDICATION History of delivery, [...] 1 lb 0 oz Calculated by Flora ([id number]-FL) Head / Face / Neck Biometry: Globe Changer 3.6 mm Nasal bone 6.5 mm Amniotic [...] be vi sualized: Heart / Thorax RVOT. 2-sucbbk-dtsssja vi ew. Gender: male. MATERNAL STRUCTURES Cervix [...] Lashawn Patel MD [facility] US ORDERABLES documented in this encounter Visit Diagnoses Diagnosis Drug dependence affecting in s econd trimester documented in this encounter Care Teams Fashion Director Party Plan Sales Relationship Specialty Start Date End Date Clinic, [facility] PCP - General 07/14/16 12/06/[address] [place], [place] [phone] documented as of this encounter
--- OUTSIDE RECORDS SUMMARY | 2021-12-13 12:39 | XMS_ITS | Encounter Summary ---
:1980 Author Organization [place] Address 2450 [facility] [place] [address] Care Team Providers Name Role Phone Clinic, [facility] Primary Care Provide r Reason for Visit Reason Comments Ultrasound L2/TV-LLP and h/o uterine ru pture, PTD Encounter Details Date Type Department Care Team Description 10/31/2016 Office Visit [facility] Ilana Patel MD [address] [facility] 400 [place], [place] [phone] Suspected anomaly, antepartum, not applicable or unspecified fetus (Primary Dx); Maternal Italia Galarza DO [address] [facility] [address] [place] [address] Placenta previa, second trimester; Medicine Center H/O delivery, currently , second trimester [place] [address] [place], [place] [address] Social History Tobacco Use Types Packs/Day Years Used Date Smoking Tobacco: Every Day Cigarettes 0.1 10 Smokeless Tobacco: Never Comments: 5 cigarettes a day Alcohol Use Standard Drinks/Week Comments Yes 0 (1 standard drink = 0.6 oz pure Stoppe d after found out alcohol) Sex Assigned at Date Recorded Female 01/14/2020 10:57 AM CHANGEOVER OPERATOR documented as of this encounter Progress Notes Italia Galarza DO - 10/31/2016 2:00 PM CDT Please see Imaging tab under Chart Review for details of today's US. Italia Galarza DO Maternal- Medicine documented in this encounter Plan of Treatment Upcoming Encounters Date Type Specialty Care Team Description 12/20/2021 Office Visit Wound Care Luis Camara, CALVIN [address] [place], [place] [phone] (Wo rk) 01/21/2022 PRE VISIT Gastroenterology Landon Warren, *-*HEATHER G RECORDS*-* MD Luis Fernando [address] [place] [address] [phone] (Wo rk) 01/21/2022 Office Visit Gastroenterology Juanis Levi [address] [place] [phone] Luis Fernando Miles MD [address] [place] [address] [phone] documented as of this encounter Visit Diagnoses Diagnosis Suspected anomaly, antepartum, not applicable or unspecified fetus - Primary Placenta previa, second trimester H/O delivery, currently , second trimester documented in this encounter Care Teams Medical Front Desk Coordinator Relationship Specialty Start Date End Date Clinic, [facility] PCP - General 07/14/16 12/06/[address] [place] [address] documented as of this encounter
--- OUTSIDE RECORDS SUMMARY | 2021-12-13 12:39 | XMS_ITS | Encounter Summary ---
:1980 Author Organization [place] Address [address] [facility] [place] [address] Care Team Providers Name Role Phone Clinic, [facility] Primary Care Provide r Reason for Visit Reason Onset Date Comments Results 10/15/2016 Encounter Details Date Type Department Care Team Description 10/15/2016 Telephone [facility] Women's Clinic Nurse, [facility] Results [facility] Profession al Building 3rd [facility] [address] [facility]88 [place] [phone] Social History Tobacco Use Types Packs/Day Years Used Date Smoking Tobacco: Every Day Cigarettes 0.1 10 Smokeless Tobacco: Never Comments: 5 cigarettes a day Alcohol Use Standard Drinks/Week Comments Yes 0 (1 standard drink = 0.6 oz pure Stoppe d after found out alcohol) Sex Assigned at Date Recorded Female 01/14/2020 10:57 AM ROTATING FIELD ASSEMBLER documented as of this encounter Miscellaneous [...] Visit Wound Care Luis Camara, [place]VIN [address] [place], [place] [address]215 (Wo rk) 01/21/2022 PRE VISIT Gastroenterology Landon Warren, *-*INCOMIN G RECORDS*-* MD Luis Fernando [address] [place] [phone] (Wo rk) 01/21/2022 Office Visit Gastroenterology Juanis Levi [address] [place] [phone] Luis Fernando Miles MD [address] [place] [address] [phone] documented as of this encounter Visit Diagnoses Not on filedocumented in this encounter Care Teams Documentation Engineer Relationship Specialty Start Date End Date Clinic, [facility] PCP - General 07/14/16 12/06/[address] [place] [address] documented as of this encounter
--- OUTSIDE RECORDS SUMMARY | 2021-12-13 12:39 | XMS_ITS | Encounter Summary ---
:1980 Author Organization [place] Address [address] [place] [address]. [place] [address] Care Team Providers Name Role Phone Luis Fernando Magana Primary Care Provider Encounter Details Date Type Department Care Team Description 12/18/2016 Anesthesia Event M [facility] Christina Linda MD [address] [facility] 294 [place] [address] Birthplace Delio Valentin MD [address] [place] [phone] [place] [address] Anesthesia Record Procedure Summary Procedure Name [...] at Date Recorded Female 01/14/2020 10:57 AM CAPTAIN FISHING VESSEL documented as of this encounter OR Notes [...] ASA Classification: 3 Case is suitable for: [facility] Anesthetic techniques and relevant risks discussed: Regional and GA Invasive monitoring and risk discussed: Yes Types: Possibility and Risk of blood transfusion discussed: Yes NPO instructions given: Other (comment) Additional anesthetic preparation and risks discussed: Invasive monitoring Needs early admission to pre-op area: Yes Other: PAC Resident/SHREDDER OPERATOR Anesthesia Assessment: Mid-Level Provider/Resident: Date: Time: Attending [...] Visit Wound Care Luis Camara DPM [address] [place], [place] [phone] (Wo rk) 01/21/2022 PRE VISIT Gastroenterology Landon Warren, *-*HEATHER Barriga RECORDS*-* MD Luis Fernando 516 [facility] 2A [place], [place] [phone] (Wo rk) 01/21/2022 Office Visit Gastroenterology Juanis Levi [facility] [place] [phone] Luis Fernando Miles MD 516 [facility] 2A [place] [address] documented as of this encounter Visit Diagnoses Not on filedocumented in this encounter Care Teams Mri Technologist Relationship Specialty Start Date End Date Luis Fernando Magana PCP - General Family Practice 12/07/16 01/19/[address] [address] documented as of this encounter
--- OUTSIDE RECORDS SUMMARY | 2021-12-13 12:39 | XMS_ITS | Encounter Summary ---
:1980 Author Organization [place] Address 2450 [facility] [place] [address] Care Team Providers Name Role Phone Clinic, [...] trimester Ur Maternal Med [address] [place], [place] [address] Referral ID Status Reason Start Date Expiration Date Visits Requ ested Visits Authorized [id number] Closed 08/22/2016 08/22/2017 1 1 Encounter Details Date Type Department Care Team Description 10/01/2016 Office Visit [facility] Amanda Drug depen dence affecting in second trimester (Primary Dx); Maternal MD GÉNESIS Hardin (advanced maternal age) multigravida 35+, second trimester; Medicine Center [address] History of loss in prior , currently in second trimester [facility] [address] [place], [place] [address] [phone] Social History Tobacco Use Types Packs/Day Years Used Date Smoking Tobacco: Every Day Cigarettes 0.1 10 Smokeless Tobacco: Never Comments: 5 cigarettes a day Alcohol Use Standard Drinks/Week Comments Yes 0 (1 standard drink = 0.6 oz pure Stoppe d after found out alcohol) Sex Assigned at Date Recorded Female 01/14/2020 10:57 AM BROOMCORN SCRAPER documented as of this encounter Progress Notes [...] that she has transferred her care from [facility] due to her complex history. HPI: [...] BREAST SURGERY ABcess drained ??? SECTION ??? TAPE MACHINE TAILER SURGERY ??? ORTHOPEDIC SURGERY ??? THORACIC SURGERY [...] I spent a total of 30 minutes hscq-du-mzrw with Stephani King during today's office visit. Over 50% of this time was spent counseling the patient and/or coordinating care regarding complicated by prior medical and OB history as noted above . See note for details. Lashawn Patel Anabelle Thomas, GENARO - 10/01/2016 11:00 AM CDT Pt [facility] to [facility] for assessment and evaluation of her [...] for a 2/3 us, TV usand a [facility] consult. See epic for today's us [...] Visit Wound Care Luis Camara, [place]VIN [address] [place], [place] [phone] (Wo rk) 01/21/2022 PRE VISIT Gastroenterology Landon Warren, *-*WANDAIN G RECORDS*-* MD Luis Fernando [address] [place] [phone] (Wo rk) 01/21/2022 Office Visit Gastroenterology Juanis Levi [address] [place] [address] Luis Fernando Miles MD [address] [place] [phone] documented as of this encounter Results [facility] US Comprehensive Single (10/31/2016 2:27 PM [...] STEPHANI KING Study Date: 1:32pm Pat. NO: [id number] Referring ??MD: LUDY RODRIGUEZ Site: [facility] Diamond Driller Helper: Geovanna Hassan RDMS : 1980 Age: 36 INDICATION History of delivery, History of uterine rupture. METHOD Transabdominal ultrasound examination. V iew: Suboptimal view: limited by maternal body habitus. Nicole . Number of fetuses: 1. DATING ? Date ?Details ?Gest. age ?JEAN MARIE External assessment ?07/14/2 017 ?GA: 6 w + 2 d [...] ? 50.6 ?mm ? 21w 2d ? Flora LEDEZMA ? 69.3 ?mm ? 21w 4d ? [...] 1 lb 0 ?oz Calculated by ?Hadlock (TSO-BH-RH-FL) Head / Face / Neck Biometry: Alternative Energy Technician ?3.6 ?mm ? Nasal bone ?6.5 ?mm [...] be vi sualized: Heart / Thorax ?RVOT. 8-tagfow-gxztsof view. Gender: male. MATERNAL STRUCTURES Cervix ?Visualized, [...] Pat. Name:Elizabeth KING Date:10/31 1:32pm Pat. NO: [id number] MD:JOSE ALFREDO RODRIGUEZ [facility]Geovanna Hassan RDMS :1980Age:36 INDICATION History of [...] 5.8 mm Humerus 33.8 mm 21w 3d [facility] Weight Calculation: EFW 443 g EFW (lb,oz) 1 lb 0 oz Calculated by Flora ([id number]) Head / Face / Neck Biometry: Alternative Energy Technician 3.6 mm Nasal bone 6.5 mm Amniotic [...] be vi sualized: Heart / Thorax RVOT. 5-meqbyq-rsznrdp vi ew. Gender: male. MATERNAL STRUCTURES Cervix Visualized, Appears Closed. Approach - Transvaginal: Cervical lengt h 4.6 mm. Approach - with fundal pressure: Cervic al length (2) 4.4 mm. Right Ovary Visualized. Left Ovary Visualized. RECOMMENDATION We discussed the findings on today's ul rasound with the patient. A repeat ultrasound [...] 6) Marginal placenta previa. Lashawn Patel MD [facility] documented in this encounter Visit Diagnoses Diagnosis Drug dependence affecting in s econd trimester - Primary AMA (advanced maternal age) multigravida 35+, second trimester History of loss in prior pregn jannie, currently in second trimester Drug dependence affecting in s econd trimester documented in this encounter Care Teams Supervisor Steel Division Relationship Specialty Start Date End Date Clinic, [facility] PCP - General 07/14/16 12/06/[address] [place] [address] documented as of this encounter
--- OUTSIDE RECORDS SUMMARY | 2021-12-13 12:39 | XMS_ITS | Encounter Summary ---
:1980 Author Organization [place] Address [address] [facility] [place] [address] Care Team Providers Name Role Phone Clinic, [facility] Primary Care Provide r Reason for Referral Diagnostic Procedure Outpatient - Closed Specialty Diagnoses / Procedures Referred By Contact Refer red To Contact Diagnoses Chronic hepatitis C without hepatic coma (H) Supervision of high-risk , second trimester Nella Robledo CNM [address] [place], [place] [address] Referral ID Status Reason Start Date Expiration Date Visits Requ ested Visits Authorized [id number] Closed 10/15/2016 10/15/2017 1 1 Encounter Details Date Type Department Care Team Description 10/15/2016 Orders Only [facility] Bridget Robledo n of high-risk , second trimester (Primary Dx); Women's Clinic Nella Wesley CNM Chronic hepatitis C without hepatic coma (H) [place] [address] [facility] Professional [address] [address] [facility] [address] (Work) [place], [place] [phone] [address] (Fax) [phone] Social History Tobacco Use Types Packs/Day Years Used Date Smoking Tobacco: Every Day Cigarettes 0.1 10 Smokeless Tobacco: Never Comments: 5 cigarettes a day Alcohol Use Standard Drinks/Week Comments Yes 0 (1 standard drink = 0.6 oz pure Stoppe d after found out alcohol) Sex Assigned at Date Recorded Female 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/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 documented as of this encounter Plan of Treatment Upcoming Encounters Date Type Specialty Care Team Description 12/20/2021 Office Visit Wound Care Luis Camara, CALVIN [address] [place], [place] [address] (Wo rk) 01/21/2022 PRE VISIT Gastroenterology Landon Warren, *-*HEATHER Barriag RECORDS*-* MD Luis Fernando [address] [place] [address] [phone] (Wo rk) 01/21/2022 Office Visit Gastroenterology Juanis Levi [address] [place] [phone] Luis Fernando Miles MD [address] [place] [address] [phone] Scheduled Referrals Name Type Priority Associated Diagnoses [facility] ADULT REF Referral Routine Chronic hepati tis C Ordered: 10/15/2016 CONSULT ONLY without hepatic coma (H) Supervision of high-risk , second trimester documented as of this encounter Visit Diagnoses Diagnosis Supervision of high-risk , seco nd trimester - Primary Chronic hepatitis C without hepatic coma (H) documented in this encounter Care Teams Straightener Relationship Specialty Start Date End Date Clinic, [facility] PCP - General 07/14/16 12/06/[address] [place] [address] documented as of this encounter
--- OUTSIDE RECORDS SUMMARY | 2021-12-13 12:39 | XMS_ITS | Encounter Summary ---
:1980 Author Organization [place] Address [address] [facility] [place] [address] Care Team Providers Name Role Phone Clinic, [facility] Primary Care Provide r Reason for Visit Reason Comments Addiction Problem Encounter Details Date Type Department Care Team Description 10/10/2016 Office Visit [facility] Edgar Alfredo Uncomplic ated opioid dependence (H); Clinic Ashly Gauthier MD Major depressive disorder, recurrent epi sode, moderate (H) [address] [place] [phone] Social History Tobacco Use Types Packs/Day Years Used Date Smoking Tobacco: Every Day Cigarettes 0.1 10 Smokeless Tobacco: Never Comments: 5 cigarettes a day Alcohol Use Standard Drinks/Week Comments Yes 0 (1 standard drink = 0.6 oz pure Stoppe d after found out alcohol) Sex Assigned at Date Recorded Female 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 [place] [employer] Data Base Reviewed: YES; [...] BREAST SURGERY ABcess drained ??? SECTION ??? CHAIN TESTING 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 SURGERY ??? ORTHOPEDIC SURGERY ??? THORACIC [...] Panel 13 Result Value Ref Range Cannabinoids ([id number]-6-[id number]-6-CQN) Not Detected NDET^Not Detected ng/mL Phencyclidine (Phencyclidine) [...] ng/mL 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 FOR [facility] USE OF HIGH RISK MEDICATION High Risk [...] visit in 2 MONTHS Edgar Alfredo MD [facility] documented in this encounter Plan of Treatment Upcoming Encounters Date Type Specialty Care Team Description 12/20/2021 Office Visit Wound Care Luis Camara, [place] [address] [place], [place] [phone] (Wo rk) 01/21/2022 PRE VISIT Gastroenterology Landon Warren, *-*WANDAIN G RECORDS*-* MD Luis Fernando [address] [place] [address] (Wo rk) 01/21/2022 Office Visit Gastroenterology Juanis Levi [address] [place] [phone] Luis Fernando Miles MD [address] [place] [phone] documented as of this encounter Procedures Procedure Name Priority Date/Time Associated Diagnosis Comme nts URINE DRUGS OF Routine 10/10/2016 3:06 PM Uncomplicated opioid Results for this ABUSE SCREEN PANEL CDT dependence (H) procedu re are in 13 the results section. documented in this encounter Results (ABNORMAL) Urine Drugs of Abuse Screen Panel 13 (10/10/2016 3:06 PM CDT) [facility] Time Signature Cannabinoids Not Detected NDET^Not 10/10/2016 LAB (64-smf-2-carbox Detected 3:17 PM CDT y-9-THC) ng/mL Comment: [...] Detected NDET^Not Detected 10/11/19 3:17 PM CDT LAB ng/mL Comment: Cutoff for a negative [...] less Buprenorphine Detected, NDET^Not 10/10/2016 3:17 PM [facility] (Buprenorphine) Abnormal Result Detected ng/mL CDT (A) Comment: Cutoff for a positive buprenorphine is g reater than 10 ng/ml. This is an unconfirmed screening result to be used for medical purposes only. Order [id number] for confirmation or indivi dual confirmation tests to [facility]. Specimen Anatomical Collection Method Collection Time Receive d Time (Source) Location / / Volume Laterality Urine specimen 10/10/2016 3:06 PM 017 3:07 (specimen) CDT PM CDT Edgar Alfredo MD LAB - URINE ORDERABLES Performing Organization Address City/State/[facility] [place] [address] [facility] [address] [facility] documented in this encounter Visit Diagnoses Diagnosis Uncomplicated opioid dependence (H) Opioid type dependence, unspecified Major depressive disorder, recurrent epi sode, moderate (H) Major depressive disorder, recurrent epi sode, moderate documented in this encounter Care Teams Textiles Sales Representative Relationship Specialty Start Date End Date Clinic, [facility] PCP - General 07/14/16 12/06/16 [facility] [place] [address] documented as of this encounter
--- OUTSIDE RECORDS SUMMARY | 2021-12-13 12:39 | XMS_ITS | Encounter Summary ---
:1980 Author Organization [place] Address [address] [facility] [place] [address] Care Team Providers Name Role Phone Clinic, [facility] Primary Care Provide r Reason for Visit Reason Onset Date Comments Addiction Problem Erroneous encounter-disregard 12/01/2016 Encounter Details Date Type Department Care Team Description 11/26/2016 Office Visit [facility] Edgar Alfredo ERRONEOUS Clinic Ashly Gauthier MD ENCOUNTER--DISREGARD [address] [place] (Primary Dx) [address] [place] [phone] Social History Tobacco Use Types Packs/Day Years Used Date Smoking Tobacco: Every Day Cigarettes 0.1 10 Smokeless Tobacco: Never Comments: 5 cigarettes a day Alcohol Use Standard Drinks/Week Comments Yes 0 (1 standard drink = 0.6 oz pure Stoppe d after found out alcohol) Sex Assigned at Date Recorded Female 01/14/2020 10:57 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 Please disregard. documented in this encounter Plan of Treatment Upcoming Encounters Date Type Specialty Care Team Description 12/20/2021 Office Visit Wound Care Luis Camara, [place] [address] [place], [place] [phone] (Wo rk) 01/21/2022 PRE VISIT Gastroenterology Landon Warren, *-*INCOMIN G RECORDS*-* MD Luis Fernando [address] [phone] (Wo rk) 01/21/2022 Office Visit Gastroenterology Juanis Levi [address] [place] [phone] Luis Fernando Miles MD [address] [phone] documented as of this encounter Visit Diagnoses Diagnosis ERRONEOUS ENCOUNTER--DISREGARD - Primary documented in this encounter Care Teams Director Of Front Office Relationship Specialty Start Date End Date Clinic, [facility] PCP - General 07/14/16 12/06/[address] [place] [address] documented as of this encounter
--- OUTSIDE RECORDS SUMMARY | 2021-12-13 12:39 | XMS_ITS | Encounter Summary ---
:1980 Author Organization [place] Address [address] [facility] [place] [place] [address] Care Team Providers Name Role Phone Clinic, [facility] Primary Care Provide r Reason for Visit Reason Comments Ultrasound TV US-H/O uterine rupture, c omplete previa and short cervix Encounter Details Date Type Department Care Team Description 10/10/2016 Office Visit [facility] Ilana Patel MD [address] [address] H/O delivery, Maternal Richard Villa MD [address] [address] currently , Medicine Center [facility] (Primary Dx) [address] [place] [address] Social History Tobacco Use Types Packs/Day Years Used Date Smoking Tobacco: Every Day Cigarettes 0.1 10 Smokeless Tobacco: Never Comments: 5 cigarettes a day Alcohol Use Standard Drinks/Week Comments Yes 0 (1 standard drink = 0.6 oz pure Stoppe d after found out alcohol) Sex Assigned at Date Recorded Female 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 Richard Villa MD Maternal- Medicine documented in this encounter Plan of Treatment Upcoming Encounters Date Type Specialty Care Team Description 12/20/2021 Office Visit Wound Care Luis Camara, [place] [address] [place], [place] [phone] (Wo rk) 01/21/2022 PRE VISIT Gastroenterology Landon Warren, *-*WANDAIN G RECORDS*-* MD Luis Fernando [address] [place] [phone] (Wo rk) 01/21/2022 Office Visit Gastroenterology Juanis Levi [address] [place] [phone] Luis Fernando Miles MD [address] [place] [phone] documented as of this encounter Visit Diagnoses Diagnosis H/O delivery, currently , second trimester - Primary documented in this encounter Care Teams Associate Broker Relationship Specialty Start Date End Date Clinic, [facility] PCP - General 07/14/16 12/06/[address] [place] [address] documented as of this encounter
--- OUTSIDE RECORDS SUMMARY | 2021-12-13 12:39 | XMS_ITS | Encounter Summary ---
:1980 Author Organization [place] Address [address] [facility] [place] [address] Care Team Providers Name Role Phone Clinic, [facility] Primary Care Provide r Reason for Visit Reason Onset Date Comments Erroneous encounter-disregard 10/07/2016 Encounter Details Date Type Department Care Team Description 10/07/[address] 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 Please disregard. documented in this encounter Plan of Treatment Upcoming Encounters Date Type Specialty Care Team Description 12/20/2021 Office Visit Wound Care Luis Camara, [place] [address] [place], [place] [phone] (Wo rk) 01/21/2022 PRE VISIT Gastroenterology Landon Warren, *-*WANDAIN G RECORDS*-* MD Luis Fernando [address] [phone] (Wo rk) 01/21/2022 Office Visit Gastroenterology Juanis Levi [address] [place] [phone] Luis Fernando Miles MD [address] [address] documented as of this encounter Visit Diagnoses Diagnosis ERRONEOUS ENCOUNTER--DISREGARD - Primary documented in this encounter Care Teams Die Grinder Relationship Specialty Start Date End Date Clinic, [facility] PCP - General 07/14/16 12/06/[address] [place] [phone] documented as of this encounter
--- OUTSIDE RECORDS SUMMARY | 2021-12-13 12:39 | XMS_ITS | Encounter Summary ---
:1980 Author Organization [place] Address [address] [facility] [place] [address] Care Team Providers Name Role Phone Clinic, [facility] Primary Care Provide r Reason for Visit Reason Onset Date Comments Medication Request 10/07/2016 Bridge for Subutex Encounter Details Date Type Department Care Team Description 10/07/2016 Telephone [facility] Edgar Alfredo, [facility] ication Request Clinic Ashly VÁSQUEZ (Bridge for Subutex ) [address] [place] [address] [place] [phone] (Wo rk) Social History Tobacco Use Types Packs/Day Years Used Date Smoking Tobacco: Every Day Cigarettes 0.1 10 Smokeless Tobacco: Never Comments: 5 cigarettes a day Alcohol Use Standard Drinks/Week Comments Yes 0 (1 standard drink = 0.6 oz pure Stoppe d after found out alcohol) Sex Assigned at Date Recorded Female 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 Mark Roldan General Partner Telephone Encounter - Edgar Alfredo MD - [...] would work for pt. Pt contact info: [phone] [facility] [place]. Mark Roldan General Partner documented in this encounter Plan of Treatment Upcoming Encounters Date Type Specialty Care Team Description 12/20/2021 Office Visit Wound Care Luis Camara, [place] [address] [place], [place] [phone] (Wo rk) 01/21/2022 PRE VISIT Gastroenterology Landon Warren, *-*WANDAIN G RECORDS*-* MD Luis Fernando [address] [place] [phone] (Wo rk) 01/21/2022 Office Visit Gastroenterology Junais Levi [address] [place] [phone] Luis Fernando Miles MD [address] [place] [phone] documented as of this encounter Visit Diagnoses Diagnosis Uncomplicated opioid dependence (H) Opioid type dependence, unspecified documented in this encounter Care Teams Dental Insurance Biller Relationship Specialty Start Date End Date Clinic, [facility] PCP - General 07/14/16 12/06/[address] [place] [phone] documented as of this encounter
--- OUTSIDE RECORDS SUMMARY | 2021-12-13 12:39 | XMS_ITS | Encounter Summary ---
:1980 Author Organization [place] Address [address] [place] [place] [address] Care Team Providers Name Role Phone Clinic, [facility] Primary Care Provide r Encounter Details Date Type Department Care Team Description 10/10/2016 Orders Only M [facility] Karen Patel e dependence (H); [facility] Laborato ry MD Lashawn High-risk , first trimester; 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 documented as of this encounter Plan of Treatment Upcoming Encounters Date Type Specialty Care Team Description 12/20/2021 Office Visit Wound Care Luis Camara DPM [address] [place], [place] [phone] (Wo rk) 01/21/2022 PRE VISIT Gastroenterology Landon Warren, *-*INCOMIN G RECORDS*-* MD Luis Fernando 6 [facility] [address] [place], [place] [phone] (Wo rk) 01/21/2022 Office Visit Gastroenterology Juanis Levi [address] [place] [phone] Luis Fernando Miles MD 6 [facility] [address] [place], [place] [phone] documented as of this encounter Procedures Procedure [...] for this REFLEX PM CDT affecting in [facility] are in first trimester the results section. [...] C RNA quantitative (10/10/2016 1:52 PM CDT) [facility] Method Time Signature HCV RNA Quant [id number] HCVND^HCV 10/14/2016 [facility] IU/ml (A) RNA Not 12:34 PM CDT [facility] [IU]/mL BANK Comment: The [...] 1:55 (specimen) CDT PM CDT Violeta Fagan TEASEL GIG OPERATOR CNM LAB - BLOOD ORDERABLES Performing Organization Address City/State/ZIP Code Phon e Number [facility] [address] [place] [address] [place] (ABNORMAL) Hepatic Panel (10/10/2016 1:52 PM CDT) [facility] Method Time Signature Bilirubin Direct 0.1 0.0 - 0.2 10/10/2016 [facility] O F mg/dL 3:12 PM CDT [facility] Bilirubin Total 0.4 0.2 - 1.3 10/10/2016 [place] OF mg/dL 3:12 PM CDT [facility] Albumin 2.8 (L) 3.4 - 5.0 10/10/2016 [facility] g/dL 3:12 PM CDT [facility] Protein Total 7.1 6.8 - 8.8 10/10/2016 [facility] g/dL 3:12 PM CDT [facility] Alkaline 60 40 - 150 10/10/2016 [facility] Phosphatase U/L 3:19 PM CDT [facility] ALT 27 0 - 50 U/L 10/10/2016 [facility] 3:12 PM CDT [facility] AST 17 0 - 45 U/L 10/10/2016 [facility] 3:12 PM CDT [facility] Specimen Anatomical Collection Method Collection Time Receive d Time (Source) Location / / Volume Laterality Blood specimen 10/10/2016 1:52 PM 017 1:55 (specimen) CDT PM CDT Violeta Fagan APRN [facility] LAB - BLOOD ORDERABLES Performing Organization Address City/[facility]/ZIP Code Phon e Number [address] TSH with free T4 reflex (10/10/2016 1:52 PM CDT) P athologist Signature TSH 1.66 0.40 - 4.00 10/10/2016 [facility] mU/L 3:19 PM CDT [facility] Specimen Anatomical Collection Method Collection Time Receive d Time (Source) Location / / Volume Laterality Blood specimen 10/10/2016 1:52 PM 017 1:55 (specimen) CDT PM CDT Violeta Fagan APRN CN LAB - BLOOD ORDERABLES Performing Organization Address City/[facility]/ZIP Code Phon e Number [address] (ABNORMAL) Hepatitis C antibody (10/10/2016 1:52 PM CDT) [facility] Method Time Signature Hepatitis C Reactive (A) NR^Nonrea 10/11/2016 [facility] ctive 1:18 PM CDT [facility] Comment: A reactive result indicates one [...] LAB - BLOOD ORDERABLES Performing Organization Address City/[facility] Code Phon e Number [address] HIV Antigen Antibody Combo [[id number]] (10/10/2016 1:52 PM CDT) [facility] [employer] Method Time Signature HIV Antigen Nonreactive NR^Nonrea 10/11/2016 [facility] OF [facility] ctive 1:18 PM CDT [facility] Comment: HIV-1 p24 Ag & HIV-1/HIV-2 Ab N ot Detected Specimen Anatomical Collection Method Collection Time Receive d Time (Source) Location / / Volume Laterality Blood specimen 10/10/2016 1:52 PM 017 1:55 (specimen) CDT PM CDT Violeta Fagan APRN, CNM LAB - BLOOD ORDERABLES Performing Organization Address City/[facility] Phon e Number [address] Hepatitis B Surface Antigen [[id number]] (10/10/2016 1:52 PM CDT) [facility] [employer] Method Time Signature Hep B Surface Nonreactive NR^Nonrea 10/11/2016 [facility] Agn ctive 1:18 PM CDT [facility] Specimen Anatomical Collection Method Collection Time Receive d Time (Source) Location / / Volume Laterality Blood specimen 10/10/2016 1:52 PM 017 1:55 (specimen) CDT PM CDT Violeta Fagan APRN, CNM LAB - BLOOD ORDERABLES Performing Organization Address City/State/[facility] Code Phon e Number [address] Rubella Antibody IgG Quantitative [[id number]] (10/10/2016 1:52 PM CDT) Analysis Performed At [facility] logist Time Signature Rubella Antibody 8 IU/mL 10/11/2016 [place] O F IgG Quantitative 1:44 PM CDT [facility] Comment: Equivocal, please recollect. Reference Range: ??Unvaccinated Negative 0-7 IU/mL Vaccinated or previous exposure Positive 10 IU/ml or greater Specimen Anatomical Collection Method Collection Time Receive d Time (Source) Location / / Volume Laterality Blood specimen 10/10/2016 1:52 PM 017 1:55 (specimen) CDT PM CDT Violeta Fagan APRN, CNM LAB - BLOOD ORDERABLES Performing Organization Address [facility]/ZIP Code Phon e Number [address] Anti Treponema [[id number]] (10/10/2016 1:52 PM CDT) Analysis Performed At [facility] logist Time Signature Treponema Negative NEG^Negati [facility]2016 [facility] Specimen Anatomical Collection Method Collection Time Receive d Time (Source) Location / / Volume Laterality Blood specimen 10/10/2016 1:52 PM 017 1:55 (specimen) CDT PM CDT Violeta Fagan APRN [facility] LAB - BLOOD ORDERABLES Performing Organization Address City/[facility]/ZIP Code Phon e Number [address] (ABNORMAL) CBC with Platelets Differential [[id number]] (10/10/2016 1:52 PM CDT) Patholo gist Method Time Signature WBC 5.3 4.0 - 10/10/2016 [facility] OF 11.0 2:[address] [facility] 10e9/L [facility] RBC Count 3.64 (L) 3.8 - 5.2 10/10/2016 [facility] 10e12/L 2:52 PM CDT [facility] Hemoglobin 11.1 (L) 11.7 - 10/10/2016 [facility] 15.7 g/dL 2:52 PM CDT [facility] Hematocrit 32.7 (L) 35.0 - 10/10/2016 [facility] 47.0 % 2:52 PM T [facility] MCV 90 78 - 100 10/10/2016 [facility] fl 2:52 PM T [facility] MCH 30.5 26.5 - 10/10/2016 [facility] 33.0 pg 2:52 PM T [facility] MCHC 33.9 31.5 - 10/10/2016 [facility] 36.5 g/dL 2:52 PM T [facility] RDW 13.1 10.0 - 10/10/2016 [facility] 15.0 % 2:52 PM T [facility] Platelet Count 186 150 - 450 10/10/2016 [facility] 10e9/L 2:52 PM T [facility] Diff Method Automated 10/10/2016 [facility] Method 2:52 PM [facility] % Neutrophils 61.4 % 10/10/2016 [facility] 2:52 PM T [facility] % Lymphocytes 29.2 % 10/10/2016 [facility] 2:52 PM [facility] % Monocytes 6.2 % 10/10/2016 [facility] 2:52 PM [facility] % Eosinophils 2.8 % 10/10/2016 [facility] 2:52 PM [facility] % Basophils 0.2 % 10/10/2016 [facility] 2:52 PM [facility] % Immature 0.2 % 10/10/2016 [facility] Granulocytes 2:52 PM T [facility] Nucleated RBCs 0 0 /100 10/10/2016 [facility] 2:52 PM T [facility] Absolute 3.3 1.6 - 8.3 10/10/2016 [facility] Neutrophil 10e9/L 2:52 PM [facility] Absolute 1.6 0.8 - 5.3 10/10/2016 [facility] Lymphocytes 10e9/L 2:52 PM [facility] Absolute 0.3 0.0 - 1.3 10/10/2016 [facility] Monocytes 10e9/L 2:52 PM T [facility] Absolute 0.2 0.0 - 0.7 10/10/2016 [facility] Eosinophils 10e9/L 2:52 PM CDT [facility] Absolute 0.0 0.0 - 0.2 10/10/2016 [facility] Basophils 10e9/L 2:52 PM CDT [facility] Abs Immature 0.0 0 - 0.4 10/10/2016 [facility] Granulocytes 10e9/L 2:52 PM CDT [facility] Absolute 0.0 10/10/2016 [facility] Nucleated RBC 2:52 PM CDT [facility] Specimen Anatomical Collection Method Collection Time Receive d Time (Source) Location / / Volume Laterality Blood specimen 10/10/2016 1:52 PM 017 1:55 (specimen) CDT PM CDT Violeta Fagan APRN, CNM LAB - BLOOD ORDERABLES Performing Organization Address City/[facility] Code Phon e Number [address] [address] [facility] ABO/Rh Type and Screen [[id number]] (10/10/2016 1:52 PM CDT) [facility] gist Method Time Signature ABO B 10/10/2016 [facility] 6:33 PM CDT [facility] RH(D) Pos [facility] Antibody Neg 10/10/2016 [facility] Screen 6:33 PM CDT [facility] Test Valid University 10/10/2016 [facility] 4:54 PM CDT [facility] Specimen 10/13/2016 10/10/2016 [facility] Expires 4:54 PM CDT [facility] Specimen Anatomical Collection Method Collection Time Receive d Time (Source) Location / / Volume Laterality Blood specimen 10/10/2016 1:52 PM 017 1:56 (specimen) CDT PM CDT Violeta Fagan APRN, CNM LAB - BLOOD BANK TEST ORD ER Performing Organization Address City/[facility]/ZIP Code Phon e Number [address] [address] [facility] 25- [place]-Vitamin D (10/10/2016 1:52 PM CDT) P athologist Signature Vitamin D 51 20 - 75 10/11/2016 UN[facility]ITY [facility] ug/L 1:18 PM CDT [place] [facility] Comment: Season, race, dietary intake, and treatm ent affect the concentration of 20-kukekzb-Irxbzte D. Values may decreas e during winter [...] 1:55 (specimen) CDT PM CDT Violeta Bailey Rylan YANES CNM LAB - BLOOD ORDERABLES Performing Organization Address City/State/ZIP Code Phon e Number [facility] [address] [place], [place] [id number] [place] [address] documented in this encounter Visit Diagnoses Diagnosis Opiate dependence (H) Opioid type dependence, unspecified High-risk , first trimester Hypothyroidism affecting in fi rst trimester Chronic hepatitis C without hepatic coma (H) documented in this encounter Care Teams Criminal Judge Relationship Specialty Start Date End Date Clinic, [facility] PCP - General 07/14/16 12/06/[address] [place] [address] documented as of this encounter
--- OUTSIDE RECORDS SUMMARY | 2021-12-13 12:39 | XMS_ITS | Encounter Summary ---
:1980 Author Organization [place] Address [address] 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 Name: FRANSISCO REDDYDI Study Date: 8:43am Pat. NO: [id number] Referring ??: CHRIST LOZADA Site: [facility] Speech And Language Specialist: Jay Lu DOB: 1980 Age: 36 INDICATION Premature Rupture of Membranes ( PPROM) Complete previa. [facility] ANTEPARTUM inpatient exam, Transabd ominal [...] Pat. Name:Elizabeth REDDY Date:12/16 8:43am Pat. NO: [id number] :CHRIST BHAT ON Site:[facility] USConographer:Yesenia Sen RDMS :1980Age:36 INDICATION Premature Rupture of Membranes ( PPROM) Complete previa. [facility] ANTEPARTUM inpatient exam, Transabd ominal [...] stent with known PPROM. [facility] documented in this encounter Visit Diagnoses Not on filedocumented in this encounter Care Teams Claim Processing Specialist Relationship Specialty Start Date End Date Luis Fernando Magana PCP - General Family Practice 12/07/16 01/19/[address] [address] documented as of this encounter
--- OUTSIDE RECORDS SUMMARY | 2021-12-13 12:39 | XMS_ITS | Encounter Summary ---
:1980 Author Organization [place] Address [facility] [place] [address] Care Team Providers Name Role Phone Clinic, [facility] Primary Care Provide r Reason for Visit Reason Comments Rule Out Labor Encounter Details Date Type Department Care Team Description 12/01/2016 Hospital Encounter [facility], [facility] Birthplace MD Julian [address] [facility] [address] [address] [facility] [address] [place], [place] [phone] (Wo rk) Social History Tobacco Use Types Packs/Day Years Used Date Smoking Tobacco: Every Day Cigarettes 0.1 10 Smokeless Tobacco: Never Comments: 5 cigarettes a day Alcohol Use Standard Drinks/Week Comments Yes 0 (1 standard drink = 0.6 oz pure Stoppe d after found out alcohol) Sex Assigned at Date Recorded Female 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 Activity: Call your doctor or nurse in process inspector if your baby is moving less than [...] 12:48 AM CDT Data: Patient presented to [facility] at 0048. Reason for maternal/ assessment per [...] Visit Wound Care Luis Camara DPM [address] [place] [address] (Reinaldo rk) 01/21/2022 PRE VISIT Gastroenterology Landon Warren, *-*WANDAIN G RECORDS*-* MD Luis Fernando [address] [place] [address] (Wo rk) 01/21/2022 Office Visit Gastroenterology Juanis Levi [address] [place] [address] Luis Fernando Miles MD [address] [place] [address] documented as of this encounter Visit Diagnoses Not on filedocumented in this encounter Care Teams Private Watchman Relationship Specialty Start Date End Date Clinic, [facility] PCP - General 07/14/16 12/06/[address] [place] [address] documented as of this encounter
--- OUTSIDE RECORDS SUMMARY | 2021-12-13 12:39 | XMS_ITS | Encounter Summary ---
:1980 Author Organization [place] Address [address] [facility] [place] [address] Care Team Providers Name Role Phone Clinic, [facility] Primary Care Provide r Encounter Details Date Type Department Care Team Description 11/30/2016 Telephone [facility] Sa blank Olivares MD Birthplace [address] [facility] [address] [place] [address] [place] [phone] Social History Tobacco Use Types Packs/Day Years Used Date Smoking Tobacco: Every Day Cigarettes 0.1 10 Smokeless Tobacco: Never Comments: 5 cigarettes a day Alcohol Use Standard Drinks/Week Comments Yes 0 (1 standard drink = 0.6 oz pure Stoppe d after found out alcohol) Sex Assigned at Date Recorded Female 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 Kayla Olivares MD CVICU RN Resident, PGY-3 11/30/2016 11:39 PM documented in this encounter Plan of Treatment Upcoming Encounters Date Type Specialty Care Team Description 12/20/2021 Office Visit Wound Care Hoa Luis Lex, [place] [address] [place], [place] [address] (Wo rk) 01/21/2022 PRE VISIT Gastroenterology Landon Warren, *-*INCOMIN G RECORDS*-* MD Luis Fernando [address] [place] [phone] (Wo rk) 01/21/2022 Office Visit Gastroenterology Juanis Levi [address] [place] [phone] Luis Fernando Miles MD [address] [place] [address] documented as of this encounter Visit Diagnoses Not on filedocumented in this encounter Care Teams Rn Documentation Relationship Specialty Start Date End Date Clinic, [facility] PCP - General 07/14/16 12/06/[address] [place] [address] documented as of this encounter
--- OUTSIDE RECORDS SUMMARY | 2021-12-13 12:39 | XMS_ITS | Encounter Summary ---
:1980 Author Organization [place] Address [address] [place] [address] Care Team Providers Name Role Phone Clinic, [facility] Primary Care Provide r Encounter Details Date Type Department Care Team Description 10/10/2016 Hospital Encounter [facility] Lela Patel MD [address] [facility] [address] [id number] Drug dependence Maternal RaukRichard MD [address] [place], [place] [address] [address] [address] affecting Medicine Center in [facility] [address] [place] [address] Social History Tobacco Use Types Packs/Day Years Used Date Smoking Tobacco: Every Day Cigarettes 0.1 10 Smokeless Tobacco: Never Comments: 5 cigarettes a day Alcohol Use Standard Drinks/Week Comments Yes 0 (1 standard drink = 0.6 oz pure Stoppe d after found out alcohol) Sex Assigned at Date Recorded Female 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 NO: [id number] Referring ??: LUDY HOANG BURN Site: [facility] Loan Adviser: Tammi Parra RDMS : 1980 Age: 36 [...] Pat. Name:Elizabeth REDDY Date:10/10 2:07pm Pat. NO: [id number] MD:JOSE ALFREDO RODRIGUEZ [facility]JOHAN Song :1980Age:36 INDICATION History of delivery, History [...] length with no funneling. Lashawn Patel MD [facility] US ORDERABLES documented in this encounter Visit Diagnoses Diagnosis Drug dependence affecting in s econd trimester documented in this encounter Care Teams Medical Assisting Program Director Relationship Specialty Start Date End Date Clinic, [facility] PCP - General 07/14/16 12/06/[address] [place] [address] documented as of this encounter
--- OUTSIDE RECORDS SUMMARY | 2021-12-13 12:39 | XMS_ITS | Encounter Summary ---
:1980 Author Organization [place] Address [address] [facility] [place] [address] Care Team Providers Name Role Phone Luis Fernando Magana Primary Care Provider Reason for Visit Auth/Cert Specialty Diagnoses / Procedures Referred By Contact Refer red To Contact amortization schedule clerk Diagnoses Maternity*JEAN MARIE: 03/07/2017 Rupture premature rupture of membranes (PPROM) delivered, current hospitalization Ur [facility] [address] [place] [address] Phone: Referral ID Status Reason Start Date Expiration Date Visits Requ ested Visits Authorized [id number] 12/09/2016 12/09/2017 1 1 Encounter Details Date Type Department Care Team Description 12/12/2016 Hospital Encounter [facility] Nora Isaac [facility] [place] [address] [place] [address] Social History Tobacco Use Types Packs/Day Years Used Date Smoking Tobacco: Every Day Cigarettes 0.1 10 Smokeless Tobacco: Never Comments: 5 cigarettes a day Alcohol Use Standard Drinks/Week Comments Yes 0 (1 standard drink = 0.6 oz pure Stoppe d after found out alcohol) Sex Assigned at Date Recorded Female 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/2020 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 documented as of this encounter Medications at [...] Visit Wound Care Luis Camara, [place]VIN [address] [place] [address] (Wo rk) 01/21/2022 PRE VISIT Gastroenterology Landon Warren, *-*HEATHER G RECORDS*-* MD Luis Fernando [address] [place] [phone] (Wo rk) 01/21/2022 Office Visit Gastroenterology Juanis Levi [address] [place] [phone] Luis Fernando Miles MD [address] [place] [phone] documented as of this encounter Procedures Procedure Name Priority Date/Time Associated Diagnosis Comme nts MFM US OB LIMITED Routine 12/12/2016 8:36 AM Resu lts for this SINGLE/MULTIPLE CDT procedure ar bronson in the results section. documented in this [...] STEPHANI REDDY Study Date: 7:48am Pat. NO: [id number] Referring ??: CHRIST LOZADA Site: [facility] Fur Repairer: Jay Lu : 1980 Age: 36 INDICATION Premature Rupture of Membranes ( PPROM), Complete Previa. METHOD [facility] ANTEPARTUM inpatient exam, Transabd ominal [...] be present but not detected. Procedure Note Cross, Nora Munguia MD - 12/12/2016For matting of this note might be different from the original. Cx TV Pat. Name:Elizabeth REDDY Date:12/12 7:48am Pat. NO: [id number] :CHRIST BHAT ON [facility]Yesenia Sen RDMS :1980Age:36 INDICATION Premature Rupture of Membranes ( PPROM), Complete Previa. METHOD [facility] ANTEPARTUM inpatient exam, Transabd ominal [...] the end of the ultrasound. Please see [facility] for further documentation regarding plan of care. [...] the placental-myometrial interface appears normal. Nora Mohamud Nithya [facility] US ORDERABLES documented in this encounter Visit Diagnoses Not on filedocumented in this encounter Care Teams Regional Agronomist Relationship Specialty Start Date End Date Luis Fernando Magana PCP - General Family Practice 12/07/16 01/19/[address] [address] documented as of this encounter
--- OUTSIDE RECORDS SUMMARY | 2021-12-13 12:40 | XMS_ITS | Encounter Summary ---
:1980 Author Organization [place] Address [address] [facility] [place] [address] Care Team Providers Name Role Phone Clinic, Formerly [facility] Primary Care Provide r Reason for Visit Reason Comments Abnormal Bleeding Problem Encounter Details Date Type Department Care Team Description 08/01/2016 Office Visit [facility] Mark Turner APRN [facility] [address] [place], [place] [phone] High-risk , first trimester (Pr imary Dx); Women[facility] Violeta Fagan APRN CNM [address] [place], [place] [address] Twin with loss and reten tion of one fetus in first trimester; [place] Anxiety; [address] Uncomplicated opioid depende nce (H); [place] Professional Histo ry of depression; [facility] Current every day smoker; 3rd Flr,Ronnie [address] Hypothyroidism affecting pre gnancy in first trimester; [place], [place] Chronic hepa titis C without hepatic coma (H); [phone] Family history of SIDS (sudd en syndrome); [phone] History of feta l anomaly in prior [...] Date Recorded Female 01/14/2020 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 o Eat a healthy diet. Visit www.Polyglot Systemsmyplate.gov and click on ??? and ??? forinformation and tips o Do not smoke. Avoid other people's smoke, too. We are happy to help with referrals to stop smokingprograms. o Do not drink alcohol. o Try to avoid people who have colds or other infections. Practice good hand washing. o Consider registering for our Healthy Class here at [facility]. This class is offered every Friday from 2:30-4:30 p.m. [place] at [phone] or online at [email or web address] o Consider registering for education classes through [facility] at [facility]. Youcan view class schedules and register online at [email or web address] or call [phone] for questions For urgent concerns, call [facility] at to speak with a triage [...] [place]-Vitamin D ??? CBC with Platelets Differential [[id number]] ??? Anti Treponema [[id number]] ??? Rubella Antibody IgG Quantitative [[id number]] ??? Hepatitis B Surface Antigen [[id number]] ??? HIV Antigen Antibody Combo [[id number]] ??? Hepatitis C antibody ??? TSH with free T4 reflex ??? Hepatic Panel ??? Hepatitis C RNA quantitative ??? 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 [facility] genetic appt scheduled 08/22/16. Plan echo - [...] taper to chosen quit date. Interested in intermediate Wellbutrin use during to curb cravings. Epic message sent to pharmacist Dr. Lafleur to discuss meeting with pt to go over medication list make recommendations about intermediate Wellbutrin addition for smoking cessation. Pt agreeable. [...] of history and current medications/regimens again at [facility] to ensure no co morbids excluded from plan. Pt to RTO for [facility] visit in 2 weeks with [...] Visit Wound Care Luis Camara DPM [address] [place], [place] [phone] (Reinaldo molina) 01/21/2022 PRE VISIT Gastroenterology Landon Warren, *-*INCOMIN G RECORDS*-* MD Luis Fernando [address] [place] [address] [phone] (Reinaldo rk) 01/21/2022 Office Visit Gastroenterology Juanis Levi [address] [place] [phone] Luis Fernando Miles MD [address] [place] [phone] documented as of this encounter Results (ABNORMAL) Hepatitis C RNA quantitative (10/10/2016 1:52 PM CDT) [facility] Method Time Signature HCV RNA Quant 5,052,767 HCVND^HCV 10/14/2016 [facility] IU/ml (A) RNA Not 12:34 PM CDT [facility] [IU]/mL BANK Comment: The LEONARDO AmpliPrep/LEONARDO [...] (H) <1.2 Log IU/mL 10/14/2016 12:34 PM [facility] BANK Specimen Anatomical Collection Method Collection Time Receive d Time (Source) Location / / Volume Laterality Blood specimen 10/10/2016 1:52 PM 017 1:55 (specimen) CDT PM CDT Violeta Fagan APRN CNM LAB - BLOOD ORDERABLES Performing Organization Address City/State/ZIP Code Phon e Number [address] [address] [place] (ABNORMAL) Hepatic Panel (10/10/2016 1:52 PM CDT) [facility] Method Time Signature Bilirubin Direct 0.1 0.0 - 0.2 10/10/2016 [facility] F mg/dL 3:12 PM CDT [facility] Bilirubin Total 0.4 0.2 - 1.3 10/10/2016 [facility] mg/dL 3:12 PM CDT [facility] Albumin 2.8 (L) 3.4 - 5.0 10/10/2016 [facility] g/dL 3:12 PM CDT [facility] Protein Total 7.1 6.8 - 8.8 10/10/2016 [facility] g/dL 3:12 PM CDT [facility] Alkaline 60 40 - 150 10/10/2016 [facility] Phosphatase U/L 3:19 PM CDT [facility] ALT 27 0 - 50 U/L 10/10/2016 [facility] 3:12 PM CDT [facility] AST 17 0 - 45 U/L 10/10/2016 [facility] 3:12 PM CDT [facility] Specimen Anatomical Collection Method Collection Time Receive d Time (Source) Location / / Volume Laterality Blood specimen 10/10/2016 1:52 PM 017 1:55 (specimen) CDT PM CDT Violeta Gillisjason Fagan APRN CN LAB - BLOOD ORDERABLES Performing Organization Address City/State/ZIP Code Phon e Number [address] [address] [facility] TSH with free T4 reflex (10/10/2016 1:52 PM CDT) P athologist Signature TSH 1.66 0.40 - 4.00 10/10/2016 [facility] mU/L 3:19 PM CDT [facility] Specimen Anatomical Collection Method Collection Time Receive d Time (Source) Location / / Volume Laterality Blood specimen 10/10/2016 1:52 PM 017 1:55 (specimen) CDT PM CDT Violeta Fagan APRN, CNM LAB - BLOOD ORDERABLES Performing Organization Address City/[facility]/ZIP Code Phon e Number [address] [address] [facility] (ABNORMAL) Hepatitis C antibody (10/10/2016 1:52 PM CDT) Patholo gist Method Time Signature Hepatitis C Reactive (A) NR^Nonrea 10/11/2016 [facility] ctive 1:18 PM CDT [facility] Comment: A reactive result indicates one of [...] (specimen) CDT PM CDT Violeta Fagan APRN [facility] LAB - BLOOD ORDERABLES Performing Organization Address City/[facility]/ZIP Code Phon e Number [facility] [address] [place], [place] [phone] [place] [address] HIV Antigen Antibody Combo [[id number]] (10/10/2016 1:52 PM CDT) [facility] Method Time Signature HIV Antigen Nonreactive NR^Nonrea 10/11/2016 [facility] Antibody ctive 1:18 PM CDT [facility] Comment: HIV-1 p24 Ag & HIV-1/HIV-2 Ab N ot Detected Specimen Anatomical Collection Method Collection Time Receive d Time (Source) Location / / Volume Laterality Blood specimen 10/10/2016 1:52 PM 017 1:55 (specimen) CDT PM CDT Violeta Fagan APRN [facility] LAB - BLOOD ORDERABLES Performing Organization Address City/[facility]/ZIP Code Phon e Number [facility] [address] Hepatitis B Surface Antigen [[id number]] (10/10/2016 1:52 PM CDT) [facility] Method Time Signature Hep B Surface Nonreactive NR^Nonrea 10/11/2016 [facility] Agn ctive 1:18 PM CDT [facility] Specimen Anatomical Collection Method Collection Time Receive d Time (Source) Location / / Volume Laterality Blood specimen 10/10/2016 1:52 PM 017 1:55 (specimen) CDT PM CDT Violeta Fagan APRN [facility] LAB - BLOOD ORDERABLES Performing Organization Address City/[facility]/ZIP Code Phon e Number [facility] [address] Rubella Antibody IgG Quantitative [[id number]] (10/10/2016 1:52 PM CDT) [facility] Time Signature Rubella Antibody 8 IU/mL 10/11/2016 [facility] F IgG Quantitative 1:44 PM CDT [facility] Comment: Equivocal, please recollect. Reference Range: ??Unvaccinated Negative 0-7 IU/mL Vaccinated or previous exposure Positive 10 IU/ml or greater Specimen Anatomical Collection Method Collection Time Receive d Time (Source) Location / / Volume Laterality Blood specimen 10/10/2016 1:52 PM 017 1:55 (specimen) CDT PM CDT Violeta Bailey Rylan FARZANA ALBRIGHT LAB - BLOOD ORDERABLES Performing Organization Address City/[facility]/ZIP Code Phon e Number [facility] [address] Anti Treponema [[id number]] (10/10/2016 1:52 PM CDT) Analysis Performed At Patho logist Time Signature Treponema Negative NEG^Negati 10/11/2016 [facility] ve 10:21 AM CDT [facility] Specimen Anatomical Collection Method Collection Time Receive d Time (Source) Location / / Volume Laterality Blood specimen 10/10/2016 1:52 PM 017 1:55 (specimen) CDT PM CDT Violeta Bailey Rylan [facility] LAB - BLOOD ORDERABLES Performing Organization Address City/[facility]/ZIP Code Phon e Number [facility] [address] (ABNORMAL) CBC with Platelets Differential [[id number]] (10/10/2016 1:52 PM CDT) Patholo gist Method Time Signature WBC 5.3 4.0 - 10/10/2016 [facility] 11.0 2:52 PM CDT [facility] 10e9/L [facility] RBC Count 3.64 (L) 3.8 - 5.2 10/10/2016 [facility] 10e12/L 2:52 PM CDT [facility] Hemoglobin 11.1 (L) 11.7 - 10/10/2016 [facility] 15.7 g/dL 2:52 PM CDT [facility] Hematocrit 32.7 (L) 35.0 - 10/10/2016 [facility] 47.0 % 2:52 PM CDT [facility] MCV 90 78 - 100 10/10/2016 [facility] fl 2:52 PM CDT [facility] MCH 30.5 26.5 - 10/10/2016 [facility] 33.0 pg 2:52 PM CDT [facility] MCHC 33.9 31.5 - 10/10/2016 [facility] 36.5 g/dL 2:52 PM [facility] RDW 13.1 10.0 - 10/10/2016 [facility] 15.0 % 2:52 PM T [facility] Platelet Count 186 150 - 450 10/10/2016 [facility] 10e9/L 2:52 PM T [facility] Diff Method Automated 10/10/2016 [facility] Method 2:52 PM T [facility] % Neutrophils 61.4 % 10/10/2016 [facility] 2:52 PM [facility] % Lymphocytes 29.2 % 10/10/2016 [facility] 2:52 PM [facility] % Monocytes 6.2 % 10/10/2016 [facility] 2:52 PM [facility] % Eosinophils 2.8 % 10/10/2016 [facility] 2:52 PM [facility] % Basophils 0.2 % 10/10/2016 [facility] 2:52 PM [facility] % Immature 0.2 % 10/10/2016 [facility] Granulocytes 2:52 PM [facility] Nucleated RBCs 0 0 /100 10/10/2016 [facility] 2:52 PM [facility] Absolute 3.3 1.6 - 8.3 10/10/2016 [facility] Neutrophil 10e9/L 2:52 PM [facility] Absolute 1.6 0.8 - 5.3 10/10/2016 [facility] Lymphocytes 10e9/L 2:52 PM [facility] Absolute 0.3 0.0 - 1.3 10/10/2016 [facility] Monocytes 10e9/L 2:52 PM [facility] Absolute 0.2 0.0 - 0.7 10/10/2016 [facility] Eosinophils 10e9/L 2:52 PM T [facility] Absolute 0.0 0.0 - 0.2 10/10/2016 [facility] Basophils 10e9/L 2:52 PM [facility] Abs Immature 0.0 0 - 0.4 10/10/2016 [facility] Granulocytes 10e9/L 2:52 PM T [facility] Absolute 0.0 10/10/2016 [facility] Nucleated RBC 2:52 PM CDT [facility] Specimen Anatomical Collection Method Collection Time Receive d Time (Source) Location / / Volume Laterality Blood specimen 10/10/2016 1:52 PM 017 1:55 (specimen) CDT PM CDT Violeta Fagan APRN, CNM LAB - BLOOD ORDERABLES Performing Organization Address City/[facility]/ZIP Code Phon e Number [address] [address] [facility] ABO/Rh Type and Screen [[id number]] (10/10/2016 1:52 PM CDT) Patholo gist Method Time Signature ABO B 10/10/2016 [facility] 6:33 PM CDT [facility] RH(D) Pos [facility] Antibody Neg 10/10/2016 [facility] Screen 6:33 PM CDT [facility] Test Valid [facility] 10/10/2016 [facility] 4:54 PM CDT [facility] B[facility] Hospital Specimen 10/13/2016 10/10/2016 [facility] Expires 4:54 PM CDT [facility] Specimen Anatomical Collection Method Collection Time Receive d Time (Source) Location / / Volume Laterality Blood specimen 10/10/2016 1:52 PM 017 1:56 (specimen) CDT PM CDT Violeta Fagan APRN, CNM LAB - BLOOD BANK TEST ORD ER Performing Organization Address [facility] Code Phon e Number [address] [address] [facility] 25- [place]-Vitamin D (10/10/2016 1:52 PM CDT) P athologist Signature Vitamin D 51 20 - 75 10/11/2016 [facility] Deficiency ug/L 1:18 PM CDT [facility] screening [facility] Comment: Season, race, dietary intake, and treatm ent affect the concentration of 33-emsbvoj-Hapooxo D. Values may decreas e during winter [...] 1:55 (specimen) CDT PM CDT Violeta Fagan ATTENDING AMBULATORY CARE CNM LAB - BLOOD ORDERABLES Performing Organization Address City/State/[facility] Code Phon e Number [facility] [address] documented in this encounter Visit Diagnoses [...] disorder documented in this encounter Care Teams Dictionary Editor Relationship Specialty Start Date End Date Clinic, [facility] PCP - General 07/14/16 12/06/16 [facility] [place] [address] documented as of this encounter
--- OUTSIDE RECORDS SUMMARY | 2021-12-13 12:40 | XMS_ITS | Encounter Summary ---
:1980 Author Organization [place] Address [address] [facility] [place] [address] Care Team Providers Name Role Phone Clinic[facility] Primary Care Provide r Reason for Visit Reason Onset Date Comments Establish Care 07/18/2016 care Encounter Details Date Type Department Care Team Description 07/18/2016 [facility] Mark Turner [facility] COTTON CANDY MAKER CNM ( care) [facility] [address] SPECIALISTS [place] [facility] [address] [facility] [address] [place], [place] 3rd Flr,[facility] [address] [address] [place], [place] [phone] (Work) [phone] Social History Tobacco Use Types Packs/Day Years Used Date Smoking Tobacco: Every Day Cigarettes 0.1 10 Smokeless Tobacco: Never Comments: 5 cigarettes a day Alcohol Use Standard Drinks/Week Comments No 0 (1 standard drink = 0.6 oz pure alcoho l) Sex Assigned at Date Recorded Female 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/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 documented as of this encounter [...] Wound Care Luis Camara DPM [address] [place] [address] (Wo rk) 01/21/2022 PRE VISIT Gastroenterology Landon Warren, *-*WANDAIN G RECORDS*-* MD Luis Fernando [address] [place] [address] (Wo rk) 01/21/2022 Office Visit Gastroenterology Juanis Levi [address] [place] [phone] Luis Fernando Miles MD [address] [place] [phone] documented as of this encounter Visit Diagnoses Diagnosis Supervision of high-risk , firs t trimester - Primary documented in this encounter Care Teams Marketing Development Specialist Relationship Specialty Start Date End Date Clinic[facility] PCP - General 07/14/16 12/06/[address] [place] [address] documented as of this encounter
--- OUTSIDE RECORDS SUMMARY | 2021-12-13 12:40 | XMS_ITS | Encounter Summary ---
:1980 Author Organization [facility] Address [address] [place] [address] Care Team Providers Name Role Phone [facility] Primary Care Provide r Reason for Visit Reason Onset Date Comments Prior Auth - Medication 08/12/2016 Subutex Encounter Details Date Type Department Care Team Description 08/12/[address] 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 Thank You, Nicole Borjas, [facility] documented in this encounter Plan of Treatment Upcoming Encounters Date Type Specialty Care Team Description 12/20/2021 Office Visit Wound Care Luis Camara, [place] [address] [place] [address] (Wo rk) 01/21/2022 PRE VISIT Gastroenterology Landon Warren, *-*WANDAIN G RECORDS*-* MD Luis Fernando [address] [place] [address] (Wo rk) 01/21/2022 Office Visit Gastroenterology Juanis Levi [address] [place] [phone] Luis Fernando Miles MD [address] [place] [address] documented as of this encounter Visit Diagnoses Not on filedocumented in this encounter Care Teams Straight Line Edger Relationship Specialty Start Date End Date Clinic[facility] PCP - General 07/14/16 12/06/[address] [place] [address] documented as of this encounter
--- OUTSIDE RECORDS SUMMARY | 2021-12-13 12:40 | XMS_ITS | Encounter Summary ---
:1980 Author Organization [place] Address [address] [facility] [place] [address] Care Team Providers Name Role Phone Clinic[facility] Primary Care Provide r Encounter Details Date Type Department Care Team Description 09/17/2016 Orders Only [facility] Anabelle Thomas High -risk , Maternal GENARO [facility] (Primary Dx) [place] [address] [place], [place] [address] Social History Tobacco Use Types Packs/Day Years Used Date Smoking Tobacco: Every Day Cigarettes 0.1 10 Smokeless Tobacco: Never Comments: 5 cigarettes a day Alcohol Use Standard Drinks/Week Comments Yes 0 (1 standard drink = 0.6 oz pure Stoppe d after found out alcohol) Sex Assigned at Date Recorded Female 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 documented as of this encounter Plan of Treatment Upcoming Encounters Date Type Specialty Care Team Description 12/20/2021 Office Visit Wound Care Luis Camara, [place] [address] [place], [place] [phone] (Wo rk) 01/21/2022 PRE VISIT Gastroenterology Landon Warren, *-*HEATHER G RECORDS*-* MD Luis Fernando [address] [facility] [place], [place] [phone] (Wo rk) 01/21/2022 Office Visit Gastroenterology Amita, Juanis M [address] [place] [phone] Luis Fernando Miles MD [address] [facility] [address] [place] [address] documented as of this encounter Visit Diagnoses Diagnosis High-risk , first trimester - P rimary documented in this encounter Care Teams Air Analyst Relationship Specialty Start Date End Date Clinic[facility] PCP - General 07/14/16 12/06/[address] [place] [address] documented as of this encounter
--- OUTSIDE RECORDS SUMMARY | 2021-12-13 12:40 | XMS_ITS | Encounter Summary ---
:1980 Author Organization [place] Address [address] [place] [address] Care Team Providers Name Role Phone Clinic, [facility] Primary Care Provide r Reason for Visit Reason Onset Date Comments Prior Auth - Medication 08/15/2016 Subutex 2 mg Encounter Details Date Type Department Care Team Description 08/15/2016 Telephone [facility] Edgar Alfredo Pri or Auth - Medication Clinic Ashly VÁSQUEZ (Subutex 2 mg ) [address] [place] [address] [place] [phone] (Wo rk) Social History Tobacco Use Types Packs/Day Years Used Date Smoking Tobacco: Every Day Cigarettes 0.1 10 Smokeless Tobacco: Never Comments: 5 cigarettes a day Alcohol Use Standard Drinks/Week Comments Yes 0 (1 standard drink = 0.6 oz pure Stoppe d after found out alcohol) Sex Assigned at Date Recorded Female 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 Staff called [facility] at [phone]. Staff informed pharmacist regarding the above information and stated he will be working [facility] and he will run the JENIFFER montesinos. Lupe Lantigua MA Telephone Encounter - Mark Roldan - 08/16/2016 12:49 PM CDT Prior Authorization: APPROVED Approved as of: 08/12/16 thru 08/16/16 Mark Roldan August 16, 2016 at 12:51 PM Telephone Encounter - Sarah Calvert MA - 08/16/2016 8:54 AM CDT Prior Authorization has been submitted via [facility] as urgent request beatty #[id number] Staff will call plan later today at [phone] to follow up Sarah Calvert MA Telephone Encounter - Dora Merchant - 08/16/2016 7:52 AM CDT Covermeds Beatty: [id number] Dora Merchant Heading Pinner Telephone Encounter - Mark Roldan - 08/15/2016 12:54 PM CDT Prior Authorization needed on: [place] Medication: Subutex Dose: 2 mg Insurance Name: [place] Insurance Phone: Not listed Insurance Behavioral Scientist placed form in provider's folder. Mark Roldan August 15, 2016 at 12:55 PM documented in this encounter Plan of Treatment Upcoming Encounters Date Type Specialty Care Team Description 12/20/2021 Office Visit Wound Care Luis Camara [place] [address] [place] [address] (Wo rk) 01/21/2022 PRE VISIT Gastroenterology Landon Warren, *-*WANDAIN G RECORDS*-* MD Luis Fernando [address] [facility] [address] [place], [place] [address] (Wo rk) 01/21/2022 Office Visit Gastroenterology Juanis Levi [address] [place] [phone] Luis Fernando Miles MD [address] [address] documented as of this encounter Visit Diagnoses Not on filedocumented in this encounter Care Teams Basic Combatant Swimmer Relationship Specialty Start Date End Date Clinic, [facility] Medical PCP - General 07/14/16 12/06/[address] [place] [address] documented as of this encounter
--- OUTSIDE RECORDS SUMMARY | 2021-12-13 12:40 | XMS_ITS | Encounter Summary ---
:1980 Author Organization [place] Address [address] [facility] [place] [address] Care Team Providers Name Role Phone Clinic, [facility] Primary Care Provide r Reason for Referral - Closed Specialty Diagnoses / Procedures Referred By Contact Refer red To Contact Diagnoses Supervision of high-risk , first trimester Ur Maternal Med [address] [place], [place] [address] Referral ID Status Reason Start Date Expiration Date Visits Requ ested Visits Authorized [id number] Closed 08/22/2016 08/22/2017 1 1 Encounter Details Date Type Department Care Team Description 07/18/[address] 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 documented as of this encounter Plan of Treatment Upcoming Encounters Date Type Specialty Care Team Description 12/20/2021 Office Visit Wound Care Luis Camara, [place] [address] [place] [address] (Wo rk) 01/21/2022 PRE VISIT Gastroenterology Landon Warren, *-*HEATHER G RECORDS*-* MD Luis Fernando [address] [address] (Wo rk) 01/21/2022 Office Visit Gastroenterology Juanis Levi [address] [place] [address] Luis Fernando Miles MD [address] [address] Scheduled Referrals Name Type Priority Associated Diagnoses Order S erendira MF Office Visit Referral Routine Supervision of high-risk [...] STEPHANI REDDY Study Date: 12:12pm Pat. NO: [id number] Referring ??MD: RICHARD STEIN Site: [facility] Applications Chemist: Mayela Teague RD MS : 1980 Age: [...] different from the original. 1st Trim Pat. Name:Clovis REDDYjames Date:09/10 12:12pm Pat. NO: [id number] MD:MAY JITENDRA DENNY [facility]Mayela Teague RDMS :1980Age:35 INDICATION Vaginal bleeding , [...] cheduled ultrasound with the patient. Her [facility] consultation is scheduled in 2 days at [...] long without fun neling. Lashawn Patel MD IMG M US ORDERABLES documented in this encounter Visit Diagnoses Diagnosis Supervision of high-risk , firs t trimester - Primary Supervision of high-risk , firs t trimester documented in this encounter Care Teams Customer Records Division Supervisor Relationship Specialty Start Date End Date Clinic, [facility] PCP - General 07/14/16 12/06/[address] [place] [address] documented as of this encounter
--- OUTSIDE RECORDS SUMMARY | 2021-12-13 12:40 | XMS_ITS | Encounter Summary ---
:1980 Author Organization [place] Address [address] [place] [address] Care Team Providers Name Role Phone Clinic, [facility] Primary Care Provide r Reason for Visit Reason Onset Date Comments Appointment 08/12/2016 Encounter Details Date Type Department Care Team Description 08/12/2016 Telephone [facility] Nithya Alfredo MD Appointment [place] [address] [facility] [address] [place], [place] [address] [phone] [place] [phone] Social History Tobacco Use Types Packs/Day Years Used Date Smoking Tobacco: Every Day Cigarettes 0.1 10 Smokeless Tobacco: Never Comments: 5 cigarettes a day Alcohol Use Standard Drinks/Week Comments Yes 0 (1 standard drink = 0.6 oz pure Stoppe d after found out alcohol) Sex Assigned at Date Recorded Female 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 YES Call taken on 08/12/2016 at 10:28 AM by Dora Merchant documented in this encounter Plan of Treatment Upcoming Encounters Date Type Specialty Care Team Description 12/20/2021 Office Visit Wound Care Luis Camara, [place] [address] [place], [place] [address] (Wo rk) 01/21/2022 PRE VISIT Gastroenterology Landon Warren, *-*INCOMIN G RECORDS*-* MD Luis Fernando [address] [place] [address] (Wo rk) 01/21/2022 Office Visit Gastroenterology Juanis Levi [address] [place] [phone] Luis Fernando Miles MD [address] [place] [address] documented as of this encounter Visit Diagnoses Not on filedocumented in this encounter Care Teams Emergency Detail Driver Relationship Specialty Start Date End Date Clinic, [facility] PCP - General 07/14/16 12/06/[address] [place] [address] documented as of this encounter
--- OUTSIDE RECORDS SUMMARY | 2021-12-13 12:40 | XMS_ITS | Encounter Summary ---
:1980 Author Organization [place] Address [address] [place] [address] Care Team Providers Name Role Phone Clinic, [facility] Primary Care Provide r Reason for Visit - Closed Specialty Diagnoses / Procedures Referred By Contact Refer red To Contact Diagnoses Supervision of high-risk , first trimester Ur Maternal Med [address] [place], [place] [address] Referral ID Status Reason Start Date Expiration Date Visits Requ ested Visits Authorized [id number] Closed 08/22/2016 08/22/2017 1 1 Encounter Details Date Type Department Care Team Description 08/22/2016 Office Visit [facility] Ilana Patel MD [address] [address] Canceled (Patient) Maternal Medicine Italia Galarza DO [address] [facility] [address] [place] [address] [facility] [address] [place], [place] [address] Social History Tobacco Use Types Packs/Day Years Used Date Smoking Tobacco: Every Day Cigarettes 0.1 10 Smokeless Tobacco: Never Comments: 5 cigarettes a day Alcohol Use Standard Drinks/Week Comments Yes 0 (1 standard drink = 0.6 oz pure Stoppe d after found out alcohol) Sex Assigned at Date Recorded Female 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/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 documented as of this encounter Plan of Treatment Upcoming Encounters Date Type Specialty Care Team Description 12/20/2021 Office Visit Wound Care Luis Camara, [place] [address] [place] [address] (Wo rk) 01/21/2022 PRE VISIT Gastroenterology Landon Warren, *-*WANDAIN G RECORDS*-* MD Luis Fernando [address] [place] [address] (Wo rk) 01/21/2022 Office Visit Gastroenterology Junais Levi [address] [place] [phone] Luis Fernando Miles MD [address] [place] [address] documented as of this encounter Visit Diagnoses Not on filedocumented in this encounter Care Teams Billing Auditor Relationship Specialty Start Date End Date Clinic, [facility] PCP - General 07/14/16 12/06/[address] [place] [address] documented as of this encounter
--- OUTSIDE RECORDS SUMMARY | 2021-12-13 12:40 | XMS_ITS | Encounter Summary ---
:1980 Author Organization [place] Address [facility] [place] [address] Care Team Providers Name Role Phone Clinic, [facility] Primary Care Provide r Reason for Visit Reason Comments Vaginal Bleeding Encounter Details Date Type Department Care Team Description 08/29/2016 Emergency [facility] Jj e[place], Abnormal vaginal bleeding; [facility] Emergency Dep t DO Threatened miscarriage [address] [facility] [place], [place] [address] [address] [employer] LogisticsPOINTJon LUCIA [phone] [place] [address] (Wo rk) Social History Tobacco Use Types Packs/Day Years Used Date Smoking Tobacco: Every Day Cigarettes 0.1 10 Smokeless Tobacco: Never Comments: 5 cigarettes a day Alcohol Use Standard Drinks/Week Comments Yes 0 (1 standard drink = 0.6 oz pure Stoppe d after found out alcohol) Sex Assigned at Date Recorded Female 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 Date Last Reviewed: 10/19/2015 ?? [phone] [employer] [address] [place] [address], [place] [address]. All rights reserved. This information is not [...] she is 13 weeks and follows at [facility]. She reports a history of complications, [...] uterus Past Surgical History: Breast surgery section Software Security Architect surgery Orthopedic surgery Thoracic surgery Family History: [...] discussed the case with the patient's nurse retrimmer out of [facility]. They believe she can be discharged, [...] provider's statements to me. Areli Morejon 08/29/2016 [facility] EMERGENCY DEPARTMENT Jj Hermosillo DO 08/29/16 2224 documented in this encounter Plan of Treatment Upcoming Encounters Date Type Specialty Care Team Description 12/20/2021 Office Visit Wound Care Luis Camara DPM [address] [place] [address] (Wo rk) 01/21/2022 PRE VISIT Gastroenterology Landon Warren, *-*HEATHER Barriga RECORDS*-* MD Luis Fernando [address] [address] (Wo rk) 01/21/2022 Office Visit Gastroenterology Juanis Levi [address] [place] [phone] Luis Fernando Miles MD [address] [facility] [address] [place] [address] documented as of this encounter Procedures Procedure [...] Neisseria gonorrhoea PCR (08/29/2016 5:30 PM CDT) [facility] Method Time Signature Specimen Vagina [facility] N Gonorrhea Negative NEG MICRO RAPID [...] e Number MICRO RAPID TESTING LAB [address] [place] [address] [facility] [address] [place], [place] [address], [facility] [phone] Chlamydia trachomatis PCR (08/29/2016 5:30 PM CDT) Component Value Ref Test Analysis Performed At [facility] Method Time Signature Specimen Vagina [facility] Chlamydia Negative NEG MICRO RAPID Trachomatis PCR Negative for C. trachomatis rRNA by senior geotechnical engineer mediated amplification. TESTING LAB A negative result [...] MICRO GENERAL ORDERABL ES Performing Organization Address City/[facility]/ZIP Code Phon e Number MICRO RAPID TESTING LAB [address] [place], [place] [id number] [place] [address] [address] [place], [place] [address], [facility] [phone] Wet prep (08/29/2016 5:30 PM CDT) [facility] Method Pyote Signature Specimen Vagina [facility] Wet Prep Few PMNs seen [place] No Trichomonas seen [facility] No yeast seen [facility] No clue cells seen Micro Report FINAL [place] Status 08/29/2016 [facility] Specimen Anatomical Collection Method Collection Time Receive d Time (Source) Location / / Volume Laterality Vaginal swab 08/29/2016 5:30 PM 7 5:41 (specimen) CDT PM CDT Jj Hermosillo DO LAB - MICRO GENERAL ORDERABL ES Performing Organization Address City/[facility]/ZIP [facility] Phon e Number [facility] [address] [place], [place] [address] [facility] [address] [place], [place] [address], [facility] [phone] US OB < 14 Weeks Single (08/29/2016 [...] JEAN MARIE of 03/02/2017. Procedure Note Gretchen Jessica MD - 08/29/2016Form atting of this note [...] type and screen (08/29/2016 3:04 PM CDT) [facility] Method Time Signature ABO B [facility] RH(D) Pos [facility] Antibody Neg [place] Screen [facility] Test Valid [facility] Only At [facility] HOSPITAL Specimen 09/01/2016 [place] [facility] Spec[facility] Anatomical Collection Method Collection Time Receive d Time (Source) Location / / Volume Laterality Blood specimen 08/29/2016 3:04 PM 017 5:13 (specimen) CDT PM CDT Jj Hermosillo DO LAB - BLOOD BANK TEST ORDER Performing Organization Address City/State/ZIP Code Phon e Number [facility] [address] [place], [place] [address] HOSPITAL [facility] [address] [place], [place] [address] [place] [address] (ABNORMAL) Basic metabolic panel (08/29/2016 3:04 PM CDT) [facility] Method Time Signature Sodium 136 133 - 144 [place] mmol/L [facility] Potassium 2.9 (L) 3.4 - 5.3 [place] mmol/L [facility] Chloride 104 94 - 109 [place] mmol/L [facility] Carbon Dioxide 23 20 - 32 [place] mmol/L [facility] Anion Gap 9 3 - 14 [place] mmol/L [facility] Glucose 88 70 - 99 [place] mg/dL [facility] Urea Nitrogen 7 7 - 30 [place] mg/dL [facility] Creatinine 0.70 0.52 - [place] 1.04 [facility] mg/dL HOSPITAL GFR Estimate >90 >60 [place] Non GFR Calc mL/min/1. [facility] 7m2 HOSPITAL GFR Estimate >90 >60 [place] If Black GFR Calc mL/min/1. [facility] [facility] 7m2 [facility] Calcium 8.2 (L) 8.5 - [place] 10.1 [facility] mg/dL HOSPITAL Specimen Anatomical Collection Method Collection Time Receive d Time (Source) Location / / Volume Laterality Blood specimen 08/29/2016 3:04 PM 017 3:22 (specimen) CDT PM CDT Jj Hermosillo DO LAB - BLOOD ORDERABLES Performing Organization Address City/State/ZIP Code Phon e Number [place] [address] [address] [place] [address] HOSPITAL [facility] [address] [phone] (ABNORMAL) CBC with platelets differential (08/29/2016 3:04 PM CDT) [facility] Method Time Signature WBC 6.6 4.0 - [place] 11.0 [facility] 10e9/L [facility] RBC Count 3.48 (L) 3.8 - 5.2 [place] 10e12/L [facility] Hemoglobin 10.9 (L) 11.7 - [place] 15.7 g/dL [facility] Hematocrit 31.9 (L) 35.0 - [place] 47.0 % [facility] MCV 92 78 - 100 [place] fl [facility] MCH 31.3 26.5 - [place] 33.0 pg [facility] MCHC 34.2 31.5 - [place] 36.5 g/dL [facility] RDW 12.2 10.0 - [place] 15.0 % [facility] Platelet Count 163 150 - 450 [place] 10e9/L [facility] Diff Method Automated [place] Method [facility] % Neutrophils 57.1 % [facility] % Lymphocytes 31.2 % [facility] % Monocytes 7.4 % [facility] % Eosinophils 3.8 % [facility] % Basophils 0.2 % [facility] % Immature 0.3 % [place] Granulocytes [facility] Nucleated RBCs 0 0 /100 [facility] Absolute 3.8 1.6 - 8.3 [place] Neutrophil 10e9/[facility] Absolute 2.1 0.8 - 5.3 [place] Lymphocytes 10e9/L [facility] Absolute 0.5 0.0 - 1.3 [place] Monocytes 10e9/L [facility] Absolute 0.3 0.0 - 0.7 [place] Eosinophils 10e9/[facility] Absolute 0.0 0.0 - 0.2 [place] Basophils [address] [place] [address] Abs Immature 0.0 0 - 0.4 [place] Granulocytes [address] [place] [address] Absolute 0.0 [place] Nucleated RBC [facility] Specimen Anatomical Collection Method Collection Time Receive d Time (Source) Location / / Volume Laterality Blood specimen 08/29/2016 3:04 PM 017 3:22 (specimen) CDT PM CDT Jj Hermosillo DO LAB - BLOOD ORDERABLES Performing Organization Address City/State/ZIP Code Phon e Number M [place] [address] [facility] [address] [phone] documented in this encounter Visit Diagnoses Diagnosis [...] 1515 documented in this encounter Care Teams Tag Machine Operator Relationship Specialty Start Date End Date Clinic, [facility] PCP - General 07/14/16 12/06/[address] [place] [phone] documented as of this encounter
--- OUTSIDE RECORDS SUMMARY | 2021-12-13 12:40 | XMS_ITS | Encounter Summary ---
:1980 Author Organization [place] Address [address] [facility] 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, [address] subutex use); [place], [place] [address] Ultrasound (1st tri [phone] screen: AMA, +H ep B, smoker, Hx [...] Date Recorded Female 01/14/2020 10:57 AM HAND DRAWER IN documented as of this encounter Plan of Treatment Upcoming Encounters Date Type Specialty Care Team Description 12/20/2021 Office Visit Wound Care Luis Camara DPM [address] [place], [place] [address] (Wo rk) 01/21/2022 PRE VISIT Gastroenterology Landon Warren, *-*INCOMIN G RECORDS*-* MD Luis Fernando [address] [address] (Wo rk) 01/21/2022 Office Visit Gastroenterology Juanis Levi [address] [place] [phone] Luis Fernando Miles MD [address] [place] [phone] documented as of this encounter Visit Diagnoses Not on filedocumented in this encounter Care Teams School Bus Inspector Relationship Specialty Start Date End Date Clinic, [facility] PCP - General 07/14/16 12/06/[address] [place] [address] documented as of this encounter
--- OUTSIDE RECORDS SUMMARY | 2021-12-13 12:40 | XMS_ITS | Encounter Summary ---
:1980 Author Organization [place] Address [address] [facility] [place] [address] Care Team Providers Name Role Phone Clinic, [facility] Primary Care Provide r Reason for Visit Reason Onset Date Comments Consult 09/17/2016 reschedule Encounter Details Date Type Department Care Team Description 09/17/2016 Telephone [facility] Anabelle Thomas ult (reschedule) Maternal Medicine GENARO Norris [facility] [address] [place], [place] [address]E [place] [phone] Social History Tobacco Use Types Packs/Day Years Used Date Smoking Tobacco: Every Day Cigarettes 0.1 10 Smokeless Tobacco: Never Comments: 5 cigarettes a day Alcohol Use Standard Drinks/Week Comments Yes 0 (1 standard drink = 0.6 oz pure Stoppe d after found out alcohol) Sex Assigned at Date Recorded Female 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 2A [place], [place] [address] (Wo rk) 01/21/2022 Office Visit Gastroenterology Juanis Levi [address] [place] [phone] Luis Fernando Miles MD [address] [address] documented as of this encounter Visit Diagnoses Not on filedocumented in this encounter Care Teams Fourdrinier Tender Relationship Specialty Start Date End Date Clinic, [facility] PCP - General 07/14/16 12/06/[address] [place] [address] documented as of this encounter
--- OUTSIDE RECORDS SUMMARY | 2021-12-13 12:40 | XMS_ITS | Encounter Summary ---
:1980 Author Organization [place] Address [facility] [place] [address] Care Team Providers Name Role Phone Clinic, [facility] Primary Care Provide r Reason for Visit Reason Comments Vaginal Bleeding Encounter Details Date Type Department Care Team Description 07/28/[address] 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 ??? You should [...] contain Tylenol?? (acetaminophen), including Vicodin??, Tylenol #3??, [place]??, Lortab??, and Percocet??. 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 I performed an exam of the patient as documented above. The above workup was undertaken. 1105: I performed a pelvic exam. 1233: Discussed the patient with Dr. Sanchez from [facility]. 1355: I rechecked the patient [...] observations and the provider's statements to me. [facility] EMERGENCY DEPARTMENT Christopher Ji MD 08/03/162006 documented in this encounter Plan of Treatment Upcoming Encounters Date Type Specialty Care Team Description 12/20/2021 Office Visit Wound Care Luis Camara, DPM [address] [place] [address] (Wo rk) 01/21/2022 PRE VISIT Gastroenterology Landon Warren, *-*INCOMIN G RECORDS*-* MD Luis Fernando [address] [address] (Wo rk) 01/21/2022 Office Visit Gastroenterology Juanis Levi [address] [place] [phone] Luis Fernando Miles MD [address] [place] [address] [phone] documented as of this encounter Procedures Procedure [...] wth. CHYNA DORAN MD Christopher Ji MD IM US ORDERABLES Rh Immune Globulin Study (07/28/2016 10:25 AM CDT) [facility] Method Time Signature ABO B [facility] RH(D) Pos [facility] Blood Canceled, [place] Screen Test [facility] Blood Bank Not suitable for Rh Immune Globulin [facility] Comment Patient is Rh positive [facility] Amount of RHIG Not suitable [place] Required for Rh [facility] Globulin Specimen Anatomical Collection Method Collection Time Receive d Time (Source) Location / / Volume Laterality 07/28/2016 10:25 07/28/2016 AM CDT 10:39 AM CDT Christopher Ji MD LAB - BLOOD BANK TEST ORDER Performing Organization Address City/State/ZIP Code Phon e Number M [facility] [address] [address] [facility] [address] [address], [facility] [phone] Rh type (07/28/2016 10:25 AM CDT) Analysis Performed At Patho logist Time Signature ABO B [facility] RH(D) Pos [facility] Specimen 07/31/2016 [facility] Specimen Anatomical Collection Method Collection Time Receive d Time (Source) Location / / Volume Laterality Blood specimen 07/28/2016 10:25 7 (specimen) AM CDT 10:31 AM CDT Christopher Ji MD LAB - BLOOD BANK TEST ORDER Performing Organization Address City/[facility]/ZIP [facility] Phon e Number M [facility] [address] [place], [place] [address] [facility] [address] [place], [place] [address], [facility] [phone] (ABNORMAL) HCG QUANTitative (07/28/2016 10:25 AM CDT) [facility] gist Method Time Signature HCG Quantitative 77,252 0 - 5 [place] Serum (H) IU/L [facility] Comment: Specimen run with a dilution Specimen Anatomical Collection Method Collection Time Receive d Time (Source) Location / / Volume Laterality Blood specimen 07/28/2016 10:25 7 (specimen) AM CDT 10:30 AM CDT Christopher Ji MD LAB - BLOOD ORDERABLES Performing Organization Address City/[facility]/ZIP [facility] Phon e Number M [facility] [address] [place], [place] [address] [facility] [address] [place], [place] [address], [facility] [phone] (ABNORMAL) CBC with platelets differential (07/28/2016 10:25 AM CDT) [facility] gist Method Time Signature WBC 7.1 4.0 - [place] 11.0 [facility] 10e9/L [facility] RBC Count 3.77 (L) 3.8 - 5.2 [place] 10e12/L [facility] Hemoglobin 11.7 11.7 - [place] 15.7 g/dL [facility] Hematocrit 35.6 35.0 - [place] 47.0 % [facility] MCV 94 78 - 100 [place] fl [facility] MCH 31.0 26.5 - [place] 33.0 pg [facility] MCHC 32.9 31.5 - [place] 36.5 g/dL [facility] RDW 12.9 10.0 - [place] 15.0 % [facility] Platelet Count 195 150 - [id number] [place] [address] Diff Method Automated [place] Method [facility] % Neutrophils 60.2 % [facility] % Lymphocytes 31.4 % [facility] % Monocytes 4.7 % [facility] % Eosinophils 3.1 % [facility] % Basophils 0.3 % [facility] % Immature 0.3 % [place] Granulocytes [facility] Nucleated RBCs 0 0 /100 [facility] Absolute 4.3 1.6 - 8.3 [place] Neutrophil [address] [place] [address] Absolute 2.2 0.8 - 5.3 [place] Lymphocytes [address] [place] [address] Absolute 0.3 0.0 - 1.3 [place] Monocytes [address] [place] [address] Absolute 0.2 0.0 - 0.7 [place] Eosinophils [address] [place] [address] Absolute 0.0 0.0 - 0.2 [place] Basophils [address] [place] [address] Abs Immature 0.0 0 - 0.4 [place] Granulocytes [address] [place] [address] Absolute 0.0 [place] Nucleated RBC [facility] Specimen Anatomical Collection Method Collection Time Receive d Time (Source) Location / / Volume Laterality Blood specimen 07/28/2016 10:25 7 (specimen) AM CDT 10:30 AM CDT Christopher Ji MD LAB - BLOOD ORDERABLES Performing Organization Address City/State/ZIP Code Phon e Number M [facility] [address] [place], [place] [address] [facility] [address] [place], [place] [address] [place] [address] Rho (D) immune globulin (RhoGam) Lab Study (07/28/2016 10:24 AM CDT) [facility] Method Time Signature Rhogam Order Order received [place] See Rhogam Study/[facility] Specimen Anatomical Collection Method Collection Time Receive d Time (Source) Location / / Volume Laterality 07/28/2016 10:24 07/28/2016 AM CDT 10:25 AM CDT Christopher Ji MD LAB - BLOOD BANK PRODUCT ORD ER Performing Organization Address City/State/ZIP Code Phon e Number [address] [address] [address] [place], [place] [address] [facility] [address] [place], [place] [address] [phone] documented in this encounter Visit Diagnoses Diagnosis [...] order. documented in this encounter Care Teams Motor Builder Assembler Relationship Specialty Start Date End Date Clinic, [facility] PCP - General 07/14/16 12/06/[address] [place] [address] documented as of this encounter
--- OUTSIDE RECORDS SUMMARY | 2021-12-13 12:40 | XMS_ITS | Encounter Summary ---
:1980 Author Organization [place] Address [address] [place] [place] [address] Care Team Providers Name Role Phone Clinic, [facility] Primary Care Provide r Encounter Details Date Type Department Care Team Description 08/01/2016 Office Visit [facility] Spec, Nurse Only Superv ision of Women's Clinic Med high-risk pre gnancy, [place] first trimester [address] (Primary Dx) [place] Professional Bldg [facility] [address] [place] [address] Social History Tobacco Use Types Packs/Day Years Used Date Smoking Tobacco: Every Day Cigarettes 0.1 10 Smokeless Tobacco: Never Comments: 5 cigarettes a day Alcohol Use Standard Drinks/Week Comments Yes 0 (1 standard drink = 0.6 oz pure Stoppe d after found out alcohol) Sex Assigned at Date Recorded Female 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/2020 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 documented as of this encounter Progress [...] Visit Wound Care Luis Camara, DPM [address] [place], [place] [address] (Wo rk) 01/21/2022 PRE VISIT Gastroenterology Landon Warren, *-*INCOMIN G RECORDS*-* MD Luis Fernando [address] [place] [address] [phone] (Wo rk) 01/21/2022 Office Visit Gastroenterology Juanis Levi [address] [place] [phone] Luis Fernando Miles MD [address] [place] [address] documented as of this encounter Visit Diagnoses Diagnosis Supervision of high-risk , firs t trimester - Primary documented in this encounter Care Teams Contact Center Consultant Relationship Specialty Start Date End Date Clinic, [facility] PCP - General 07/14/16 12/06/[address] [place] [address] documented as of this encounter
--- OUTSIDE RECORDS SUMMARY | 2021-12-13 12:40 | XMS_ITS | Encounter Summary ---
:1980 Author Organization [place] Address [address] [place] [address] Care Team Providers Name Role Phone [facility] Primary Care Provide r Luis Fernando Magana Primary Care Provider [facility] Primary Care Provide r Tatyana Haas CHILDREN'S LIBRARIAN CUSTOMER SERVICE TECHNICIAN Unavailable [phone] Stephani Pina CHILDREN'S LIBRARIAN CUSTOMER SERVICE TECHNICIAN Unavailable [phone] Tatyana Haas CHILDREN'S LIBRARIAN CUSTOMER SERVICE TECHNICIAN Unavailable [phone] Stephani Pina CHILDREN'S LIBRARIAN CUSTOMER SERVICE TECHNICIAN Unavailable [phone] Juanis Levi Primary Care Provider Elsa Yeh RN Unavailable Unavailable Rogelio Treadwell MD Unavailable [phone] Luis Camara DPM Unavailable [phone] Camryn Christina MD Unavailable Sintia Lange PA-C Unavailable Luis Fernando Miles MD Unavailable [phone] Reason for Visit Reason Onset Date Comments Appointment 08/06/2016 Encounter Details Date Type Department Care Team Description 08/06/2016 Telephone [facility] Alexia Hawkins Appointment [place] [address] [place] Profession al Bldg [facility] [address] [place], [place] [phone] Social History Tobacco Use Types Packs/Day Years Used Date Smoking Tobacco: Every Day Cigarettes 0.1 10 Smokeless Tobacco: Never Comments: 5 cigarettes a day Alcohol Use Standard Drinks/Week Comments Yes 0 (1 standard drink = 0.6 oz pure Stoppe d after found out alcohol) Sex Assigned at Date Recorded Female 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 documented in this encounter Plan of Treatment Upcoming Encounters Date Type Specialty Care Team Description 12/20/2021 Office Visit Wound Care Luis Camara, [place] [address] [place] [address] (Wo rk) 01/21/2022 PRE VISIT Gastroenterology Landon Warren, *-*HEATHER G RECORDS*-* MD Luis Fernando [address] [place] [address] (Wo rk) 01/21/2022 Office Visit Gastroenterology Juanis Lvei [address] [place] [phone] Luis Fernando Miles MD [address] [place] [address] documented as of this encounter Visit Diagnoses Not on filedocumented in this encounter Additional Health Concerns Infection Onset Date Last Indicated Resolved Time MRSAComment: Added from external infection. 11/07/201406/18 documented as of this encounter Care Teams Health Services Manager Relationship Specialty Start Date End Date Clinic, [facility] PCP - General 07/14/[address] [phone] Luis Fernando Magana PCP - General Family Practice 12/07/16 01/19/[address] [address] Clinic, [facility] PCP - General 01/20/[address] [phone] Juanis Levi PCP - General Addiction Medicine 06/29/[address] [place] [phone] Tatyana Haas, Assigned PCP 08/02/18 01/29/20 CHILDREN'S LIBRARIAN CUSTOMER SERVICE TECHNICIAN [place] [facility] [address] [facility] [address] [place], [place] [phone] Stephani Pina, Assigned PCP 01/30/20 12/30/20 CHILDREN'S LIBRARIAN CUSTOMER SERVICE TECHNICIAN [address] [place], [place] [phone] Tatyana Haas, Assigned PCP 12/31/20 02/24/21 CHILDREN'S LIBRARIAN CUSTOMER SERVICE TECHNICIAN [facility] [address] [facility] [address] [place], [place] [address] Stephani Pina, Assigned PCP 02/25/21 CHILDREN'S LIBRARIAN CUSTOMER SERVICE TECHNICIAN [address] [place] [address] Elsa Yeh, Registered Nurse Infectious Diseases 07/25/21 Rogelio Wilson Assigned Musculoskeletal 08/04/21 MD August Provider [address] [place], [place] [phone] Luis Camara MD Podiatry 08/16/21 [place] Burnett [address] [place], [place] [address] Camryn Christina Assigned Surgical 09/01/21 09/07/21 MD Lexie Provider [address] [facility] [address] [place] [address] Sintia Lange PA-C Assigned Surgical 09/08/21 909 [facility] 4TH [place] [address] Landon Warren MD Gastroenterology 11/21/21 MD Luis Fernando 6 [facility] [address] [place] [address] documented as of this encounter
--- OUTSIDE RECORDS SUMMARY | 2021-12-13 12:40 | XMS_ITS | Encounter Summary ---
:1980 Author Organization [place] Address [address] [place] [address] Care Team Providers Name Role Phone Clinic, [facility] Primary Care Provide r Encounter Details Date Type Department Care Team Description 09/10/2016 Hospital Encounter [facility] Lela Patel MD [address] [phone] Supervision of Maternal Lex Woods MD [address] [place], [place] [address] [address] [address] high-risk , Medicine Center [facility] [address] [address] Social History Tobacco Use Types Packs/Day Years Used Date Smoking Tobacco: Every Day Cigarettes 0.1 10 Smokeless Tobacco: Never Comments: 5 cigarettes a day Alcohol Use Standard Drinks/Week Comments Yes 0 (1 standard drink = 0.6 oz pure Stoppe d after found out alcohol) Sex Assigned at Date Recorded Female 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 Name:Elizabeth REDDY Date:09/10 12:12pm Pat. NO: [id number] MD:May [facility]Mayela Teague RDMS :1980Age:35 INDICATION Vaginal [...] long without fun neling. Lashawn Patel MD G [facility] US ORDERABLES documented in this encounter Visit Diagnoses Diagnosis Supervision of high-risk , firs t trimester documented in this encounter Care Teams Utility System Operator Relationship Specialty Start Date End Date Clinic, [facility] PCP - General 07/14/16 12/06/[address] [place] [address] documented as of this encounter
--- OUTSIDE RECORDS SUMMARY | 2021-12-13 12:40 | XMS_ITS | Encounter Summary ---
:1980 Author Organization [place] Address [address] [facility] [place] [address] Care Team Providers Name Role Phone Clinic, [facility] Primary Care Provide r Reason for Visit Reason Onset Date Comments Abnormal Uterine Bleeding 08/29/2016 13 we eks today. Encounter Details Date Type Department Care Team Description 08/29/2016 Telephone [facility] Violeta Fagan Abnormal Uterine [facility] FARZANA Bailey CNCamryn Bleeding ( [address] [place] [address] weeks today.) [address] [place], [place] [address] [address] [place], [place] [phone] [address] (Work) [phone] Social History Tobacco Use Types Packs/Day Years Used Date Smoking Tobacco: Every Day Cigarettes 0.1 10 Smokeless Tobacco: Never Comments: 5 cigarettes a day Alcohol Use Standard Drinks/Week Comments Yes 0 (1 standard drink = 0.6 oz pure Stoppe d after found out alcohol) Sex Assigned at Date Recorded Female 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 [facility]. Tremayne Gilmore RN Telephone Encounter - Tremayne Price RN - 08/29/2016 1:41 PM CDT Pt called back to get scheduled for an US. Pt states she is bleeding very heavily, she states she is wear adult depends and had to change them 5 minutes apart. Pt advised to come into the [facility] ED with that heavy of bleeding. Pt is other line with [facility] trying to arrange a ride to the Hospital. She will call me back if not able to get ride. Tremayne Gilmore RN Telephone Encounter - Thais Morris LPN - 08/29/2016 1:35 PM CDT Phone call from Rn at [facility] patient would like to be evaluated there [...] Phone Fax E-Mail Primary [facility] [address] [place], [place] [address]E [facility] [address] ?? with Twins but at 8 weeks documented in this encounter Plan of Treatment Upcoming Encounters Date Type Specialty Care Team Description 12/20/2021 Office Visit Wound Care Luis Camara, [place] [address] [place], [place] 9[address] (Wo rk) 01/21/2022 PRE VISIT Gastroenterology Landon Warren, *-*HEATHER G RECORDS*-* MD Luis Fernando [address] [phone] (Wo rk) 01/21/2022 Office Visit Gastroenterology Juanis Levi [address] [place] [phone] Luis Fernando Miles MD [address] [address] documented as of this encounter Visit Diagnoses Diagnosis Vaginal bleeding in patient at less than 20 weeks gestation - Primary documented in this encounter Care Teams Automatic Coil Machine Operator Relationship Specialty Start Date End Date Clinic, [facility] PCP - General 07/14/16 12/06/[address] [place] [address] documented as of this encounter
--- OUTSIDE RECORDS SUMMARY | 2021-12-13 12:40 | XMS_ITS | Encounter Summary ---
:1980 Author Organization [place] Address [address] [facility] [place] [address] Care Team Providers Name Role Phone Clinic, [facility] Primary Care Provide r Reason for Visit Reason Onset Date Comments Clinic Care Coordination - Follow-up 09/02/2016 NOB appt Encounter Details Date Type Department Care Team Description 09/02/2016 Telephone [facility] Women's Nurse, [facility] Clinic Care Coordination Clinic [facility] - Follow-up (NOB appt) [address] [place] Professional Bldg [facility] [address] 3[address]r,[facility] [address] [place] [address] Social History Tobacco Use Types Packs/Day Years Used Date Smoking Tobacco: Every Day Cigarettes 0.1 10 Smokeless Tobacco: Never Comments: 5 cigarettes a day Alcohol Use Standard Drinks/Week Comments Yes 0 (1 standard drink = 0.6 oz pure Stoppe d after found out alcohol) Sex Assigned at Date Recorded Female 01/14/2020 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 documented as of this encounter Miscellaneous Notes [...] Visit Wound Care Luis Camara, [place] [address] [place] [address] (Wo rk) 01/21/2022 PRE VISIT Gastroenterology Landon Warren, *-*INCOMIN G RECORDS*-* MD Luis Fernando [address] [place] [address] (Wo rk) 01/21/2022 Office Visit Gastroenterology Juanis Levi [address] [place] [phone] Luis Fernando Miles MD [address] [place] [address] documented as of this encounter Visit Diagnoses Not on filedocumented in this encounter Care Teams Technology Project Manager Relationship Specialty Start Date End Date Clinic, [facility] PCP - General 07/14/16 12/06/[address] [place] [address] documented as of this encounter
--- OUTSIDE RECORDS SUMMARY | 2021-12-13 12:40 | XMS_ITS | Encounter Summary ---
:1980 Author Organization [place] Address [address] [facility] [place] [address] Care Team Providers Name Role Phone Clinic, [facility] Primary Care Provide r Reason for Visit Reason Onset Date Comments Clinic Care Coordination - Follow-up 08/30/2016 NOB [place] Encounter Details Date Type Department Care Team Description 08/30/2016 Telephone [facility] Women's Nurse, p [facility] Clinic Care Coordination Clinic [place] - Follow-up ([place]B [place]) [address] [place] Professional Bldg [facility] [address] 3[address] Flr,[facility] [address] [place] [address] Social History Tobacco Use Types Packs/Day Years Used Date Smoking Tobacco: Every Day Cigarettes 0.1 10 Smokeless Tobacco: Never Comments: 5 cigarettes a day Alcohol Use Standard Drinks/Week Comments Yes 0 (1 standard drink = 0.6 oz pure Stoppe d after found out alcohol) Sex Assigned at Date Recorded Female 01/14/2020 10:57 AM NANOTECHNICIAN documented as of this encounter Miscellaneous Notes [...] Visit Wound Care Luis Camara DPM [address] [place], [place] [address] (Wo rk) 01/21/2022 PRE VISIT Gastroenterology Landon Warren, *-*INCOMIN G RECORDS*-* MD Luis Fernando [address] [phone] (Wo rk) 01/21/2022 Office Visit Gastroenterology Juanis Levi [address] [place] [phone] Luis Fernando Miles MD [address] [phone] documented as of this encounter Visit Diagnoses Not on filedocumented in this encounter Care Teams Armature Connector Relationship Specialty Start Date End Date Clinic, [facility] PCP - General 07/14/16 12/06/[address] [place] [address] documented as of this encounter
--- OUTSIDE RECORDS SUMMARY | 2021-12-13 12:40 | XMS_ITS | Encounter Summary ---
:1980 Author Organization [place] Address [address] [place] [address] Care Team Providers Name Role Phone Clinic, [facility] Primary Care Provide r Luis Fernando Magana Primary Care Provider Reason for Visit Reason Onset Date Comments Vaginal Bleeding 07/18/2016 8 weeks wit h weeks, very high ristk pregancy, she is bleeding heav mateo and passed 6-7 clots so far Encounter Details Date Type Department Care Team Description 07/18/2016 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 [address] bleeding heavily and Bldg [facility] [address] [place], [place] passed 6-7 clots so 3rd Flr,Ronnie 300 [address] far) [place], [place] [phone] (Work) [phone] Social History Tobacco Use Types Packs/Day Years Used Date Smoking Tobacco: Every Day Cigarettes 0.1 10 Smokeless Tobacco: Never Comments: 5 cigarettes a day Alcohol Use Standard Drinks/Week Comments No 0 (1 standard drink = 0.6 oz pure alcoho l) Sex Assigned at Date Recorded Female 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 documented as of this encounter Plan of Treatment Upcoming Encounters Date Type Specialty Care Team Description 12/20/2021 Office Visit Wound Care Luis Camara, [place]VIN [address] [place], [place] [phone] (Wo rk) 01/21/2022 PRE VISIT Gastroenterology Landon Warren, *-*WANDAIN G RECORDS*-* MD Luis Fernando 516 [facility] [address] [place], [place] [phone] (Wo rk) 01/21/2022 Office Visit Gastroenterology Juanis Levi [address] [place] [phone] Luis Fernando Miles MD [address] [phone] documented as of this encounter Visit Diagnoses Not on filedocumented in this encounter Care Teams Running Instructor Relationship Specialty Start Date End Date Clinic, [facility] PCP - General 07/14/16 12/06/[address] [place] [address] Luis Fernando Magana PCP - General Family Practice 12/07/16 01/19/[address] [address] documented as of this encounter
--- OUTSIDE RECORDS SUMMARY | 2021-12-13 12:40 | XMS_ITS | Encounter Summary ---
:1980 Author Organization [place] Address [address] [facility] [place] [address] Care Team Providers Name Role Phone Clinic, [facility] Primary Care Provide r Reason for Visit Reason Comments Ultrasound 2/3 tri u/s- hx uterine rupt ure, PTD Encounter Details Date Type Department Care Team Description 09/10/2016 Office Visit [facility] Ilana Patel MD [address] [place] [address] H/O delivery, Maternal Lex Woods MD [address] [facility] [address] [place] [address] currently , Medicine Center [facility] (Primary Dx) [address] [place], [place] [address] Social History Tobacco Use Types Packs/Day Years Used Date Smoking Tobacco: Every Day Cigarettes 0.1 10 Smokeless Tobacco: Never Comments: 5 cigarettes a day Alcohol Use Standard Drinks/Week Comments Yes 0 (1 standard drink = 0.6 oz pure Stoppe d after found out alcohol) Sex Assigned at Date Recorded Female 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 Lex Woods M.D. Specialist in Maternal- Medicine documented in this encounter Plan of Treatment Upcoming Encounters Date Type Specialty Care Team Description 12/20/2021 Office Visit Wound Care Hoa Luis Lex, DPM [address] [place], [place] [phone] (Wo rk) 01/21/2022 PRE VISIT Gastroenterology Landon Warren, *-*INCOMIN G RECORDS*-* MD Luis Fernando [address] [phone] (Wo rk) 01/21/2022 Office Visit Gastroenterology Juanis Levi [address] [place] [phone] Luis Fernando Miles MD [address] [phone] documented as of this encounter Visit Diagnoses Diagnosis H/O delivery, currently , second trimester - Primary documented in this encounter Care Teams Information Officer Relationship Specialty Start Date End Date Clinic, [facility] PCP - General 07/14/16 12/06/[address] [place] [address] documented as of this encounter
--- OUTSIDE RECORDS SUMMARY | 2021-12-13 12:40 | XMS_ITS | Encounter Summary ---
:1980 Author Organization [place] Address [address] [facility] [place] [address] Care Team Providers Name Role Phone Clinic, [facility] Primary Care Provide r Reason for Visit Reason Comments Addiction Problem Encounter Details Date Type Department Care Team Description 08/12/[address] 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 SECTION ??? COLD REDUCTION ROLLER SURGERY ??? ORTHOPEDIC SURGERY ??? THORACIC SURGERY [...] Take 1 tablet by mouth daily ??? Tmrvlbil-Iaa-Ix-FA ( VITAMINS) 0.8 MG TABS Take 1 [...] Panel 13 Result Value Ref Range Cannabinoids (12-kgm-5-ysqyimp-3-IVO) NDET ng/mL Not Detected Cutoff for a [...] be used for medical purposes only. Order [id number] for confirmation or individual confirmation tests to [employer]. 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 FOR COLLAR SEWER USE OF HIGH RISK MEDICATION High Risk [...] Visit Wound Care Luis Camara, [place] [address] [place] [address] (Wo rk) 01/21/2022 PRE VISIT Gastroenterology Landon Warren, *-*INCOMIN G RECORDS*-* MD Luis Fernando 516 [facility] [place], [place] [address] (Wo rk) 01/21/2022 Office Visit Gastroenterology Juanis Levi [address] [place] [address] Luis Fernando Miles MD 516 [facility] [place], [place] [address] documented as of this encounter Procedures Procedure [...] At [facility] Cannabinoids Not Detected NDET LAB (95-uux-2-carboxy- Cutoff for a negative cannabinoid is 50 [...] be used for medical purposes only. Order [id number] for confirmation or individual confirmation tests to [employer]. (A) Specimen Anatomical Collection Method Collection Time Receive d Time (Source) Location / / Volume Laterality Urine specimen 08/12/2016 2:28 PM 017 2:29 (specimen) CDT PM CDT Edgar Alfredo MD LAB - URINE ORDERABLES Performing Organization Address City/State/[place] [address] [facility] [address] [place] [address] [address] LAB documented in this encounter Visit Diagnoses Diagnosis Uncomplicated opioid dependence (H) Opioid type dependence, unspecified Major depressive disorder, recurrent epi sode, moderate (H) Major depressive disorder, recurrent epi sode, moderate documented in this encounter Care Teams Wink Cutter Operator Relationship Specialty Start Date End Date Clinic, [facility] PCP - General 07/14/16 12/06/16 [facility] [place] [address] documented as of this encounter
--- OUTSIDE RECORDS SUMMARY | 2021-12-13 12:40 | XMS_ITS | Encounter Summary ---
:1980 Author Organization [place] Address [address] [facility] [place] [address] Care Team Providers Name Role Phone Clinic, [facility] Primary Care Provide r Encounter Details Date Type Department Care Team Description 10/01/2016 Hospital Encounter [facility] Amanda, High -risk , Maternal MD Lashawn first trimester Medicine Center [address] [facility] [address] [place] [phone] Social History Tobacco Use Types Packs/Day Years Used Date Smoking Tobacco: Every Day Cigarettes 0.1 10 Smokeless Tobacco: Never Comments: 5 cigarettes a day Alcohol Use Standard Drinks/Week Comments Yes 0 (1 standard drink = 0.6 oz pure Stoppe d after found out alcohol) Sex Assigned at Date Recorded Female 01/14/2020 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 documented as of this encounter Medications [...] Visit Wound Care Luis Camara DPM [address] [place], [place] [phone] (Wo rk) 01/21/2022 PRE VISIT Gastroenterology Landon Warren, *-*HEATHER Barriga RECORDS*-* MD Luis Fernando [address] [place] [phone] (Wo rk) 01/21/2022 Office Visit Gastroenterology Juanis Levi [address] [place] [address] Luis Fernando Miles MD [address] [place] [phone] documented as of this encounter Procedures Procedure Name Priority Date/Time Associated Diagnosis Comme nts M US OB COMPLETE Routine 10/01/2016 11:57 AM High-risk [...] PM CDT / 3rd Trim Pat. Name: FERNANDO STEPHANI Study Date: 10:41am Pat. NO: [id number] Referring ??: RICHARD STEIN Site: [facility] Functional Director: Magalis Pina RDMS : 1980 Age: 36 INDICATION Hypothyroid. Twin demise of ranjan Gilmore [...] ? 39.8 ?mm ? 18w 1d ? [facility] OFD ? 53.2 ?mm ? 17w 6d ? Nicolaides HC ?147.9 ?mm ?17w 6d ? Hadlock AC ?121.7 ?mm ?17w 6d ? Hadlock Femur ? 26.0 ?mm ?17w 6d ? Hadlock Cerebellum tr ? 17.0 ?mm ?17w 0d ? Nicolaides CM ? 5.0 ?mm ? Weight Calculation: EFW ? 214 ? g ? EFW (lb,oz) ? 0 lb 8 ?oz Calculated by ?Hadlock (PKA-CN-GB-FL) Head / Face / Neck Biometry: Operator Control Room ?5.2 ?mm ? Amniotic Fluid / FHR: [...] During the consultation, Stephani let us kno kolton that she has transferred her care from [facility] to [facility] clinic at [facility] due to her complex history. 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 Her 3rd//5th pregnancies were uncomplicated FT . Her 6th [...] BREAST SURGERY ABcess drained ? SECTION ? PLASTICS HEAT WELDER SURGERY Medications: WELLBUTRIN SR 150 MG 12 [...] of 30 minutes face-to-fa ce with Stephani Maycol Fernando during today's office visit. Over 50% of [...] note might be different from the original. Trim Pat. Name:Elizabeth KING Date:10/01 10:41am Pat. NO: [id number] MD:May [facility]AN Garcia :1980Age:36 INDICATION Hypothyroid. Twin demise of ranjan aguilar B at 8 week ultrasound. Advanced Maternal Age--Multigravida. [...] 0 lb 8 oz Calculated by Flora (ELD-GW-LW-FL) Head / Face / Neck Biometry: Operator Control Room 5.2 mm Amniotic Fluid / FHR: AF [...] Ovary Visualized. Left Ovary Visualized. CONSULTATION Type: MFM CONSULTATION. Maternal- Medicine Consultation REFERRAL: Dear Miss Nidia Gopal, Thank you for your maternal Medici ne consult regarding Miss King history of Subutex use, AMA and history of uterine rupture. During the consultation, Stephani let us kno w that she has transferred her care from [facility] to [facility] clinic at [facility] due to her complex history. HPI: [...] Live Births 7 #OutcomeDateGALbr Sherman/2ndWeightSexDelive ryAnesPTLLv 9Current 4Ahhzeji64/03/9331o1o/ 01:060.325 kg (11 .5 oz)UVag-SpontFD Apgar1: 0 Apgar5: 0 5Hnaz4343KX-CAmpubRYR 7Sbyx8936RH-XPnaljJRD 5TermLIV 4TermLIV 3TermLIV 2TermDEC 1TermDEC Past Medical History: DiagnosisDate ?Anxiety ?Chronic hepatitis C (H) ?Depressive disorder ?Hypothyroid ?Suboxone maintenance treatment complica ting , antepartum (H) Past Surgical History: ProcedureLateralityDate ?BREAST SURGERY ABcess drained ? SECTION ?PLASTICS HEAT WELDER SURGERY Medications: WELLBUTRIN SR 150 MG 12 [...] is w ithin . Lashawn Patel MD [facility] US ORDERABLES documented in this encounter Visit Diagnoses Diagnosis High-risk , first trimester documented in this encounter Care Teams Materials Tech Relationship Specialty Start Date End Date Clinic, [facility] PCP - General 07/14/16 12/06/[address] [place] [address] documented as of this encounter
--- OUTSIDE RECORDS SUMMARY | 2021-12-13 12:40 | XMS_ITS | Encounter Summary ---
:1980 Author Organization [place] Address [address] [facility] [place] [address] Care Team Providers Name Role Phone Clinic, [facility] Primary Care Provide r Reason for Visit Reason Onset Date Comments No Show 09/12/2016 x3 for MFM appt Encounter Details Date Type Department Care Team Description 09/12/2016 Telephone [facility] Maricruz Pina No Kristen w (x3 for MFM Maternal Medicine appt ) [facility] [address] [place] [address] Social History Tobacco Use Types Packs/Day Years Used Date Smoking Tobacco: Every Day Cigarettes 0.1 10 Smokeless Tobacco: Never Comments: 5 cigarettes a day Alcohol Use Standard Drinks/Week Comments Yes 0 (1 standard drink = 0.6 oz pure Stoppe d after found out alcohol) Sex Assigned at Date Recorded Female 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 Patient has been scheduled threetimes for appointments with our clinic and has no showed for all three. Removing orders. Referring clinic notified that a new referral will need to placed. Employment Agency Manager Maricruz Pina documented in this encounter Plan of Treatment Upcoming Encounters Date Type Specialty Care Team Description 12/20/2021 Office Visit Wound Care Luis Camara, CALVIN [address] [place], [place] [phone] (Wo rk) 01/21/2022 PRE VISIT Gastroenterology Landon Warren, *-*INCOMIN G RECORDS*-* MD Luis Fernando [address] [place] [phone] (Wo rk) 01/21/2022 Office Visit Gastroenterology Juanis Levi [address] [place] [phone] Luis Fernando Miles MD [address] [address] documented as of this encounter Visit Diagnoses Not on filedocumented in this encounter Care Teams Phone Representative Relationship Specialty Start Date End Date Clinic, [facility] PCP - General 07/14/16 12/06/[address] [place] [address] documented as of this encounter
--- OUTSIDE RECORDS SUMMARY | 2021-12-13 12:40 | XMS_ITS | Encounter Summary ---
:1980 Author Organization [place] Address [address] [facility] [place] [address] Care Team Providers Name Role Phone Clinic, [facility] Primary Care Provide r Reason for Visit Reason Onset Date Comments Prior Auth - Medication 09/09/2016 Buprenorphine HC L 2 mg Encounter Details Date Type Department Care Team Description 09/09/2016 Telephone [facility] Edgar Alfredo Pri or Auth - Medication Clinic Ashly VÁSQUEZ (Buprenorphine HCL [address] [place] ) [address] [place] [phone] (Wo rk) Social History Tobacco Use Types Packs/Day Years Used Date Smoking Tobacco: Every Day Cigarettes 0.1 10 Smokeless Tobacco: Never Comments: 5 cigarettes a day Alcohol Use Standard Drinks/Week Comments Yes 0 (1 standard drink = 0.6 oz pure Stoppe d after found out alcohol) Sex Assigned at Date Recorded Female 01/14/2020 10: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 [place] Case# [id number]. Lupe Lantigua MA Telephone Encounter - Lupe Lantigua CMA - 09/10/2016 8:21 AM CDT Staff called [facility] Department at [phone] (Option#3). Staff is waiting for PA request to be faxed. Staff completed and faxed PA request for Subutex 2mg tablets 120 tablets per 30 days. Lupe Lantigua MA Telephone Encounter - Mark Roldan - 09/09/2016 2:29 PM CDT Prior Authorization needed on: 09/09/16 Medication: Buprenorphine HCL Dose: 2 mg Pharmacy confirmed as [facility] [address] [facility] , Insurance: [facility] to [employer] Insurance vigil: [id number] Mark Roldan September 09, 2016 at 2:29 PM documented in this encounter Plan of Treatment Upcoming Encounters Date Type Specialty Care Team Description 12/20/2021 Office Visit Wound Care Luis Camara DPM [address] [place] [address] (Reinaldo rk) 01/21/2022 PRE VISIT Gastroenterology Landon Warren, *-*WANDAIN G RECORDS*-* MD Luis Fernando [address] [place] [address] (Wo rk) 01/21/2022 Office Visit Gastroenterology Juanis Levi [address] [place] [phone] Luis Fernando Miles MD [address] [place] [address] documented as of this encounter Visit Diagnoses Not on filedocumented in this encounter Care Teams Powder Worker Relationship Specialty Start Date End Date Clinic, [facility] PCP - General 07/14/16 12/06/[address] [place] [address] documented as of this encounter
--- OUTSIDE RECORDS SUMMARY | 2021-12-13 12:40 | XMS_ITS | Encounter Summary ---
:1980 Author Organization [place] Address [address] [facility] [place] [address] Care Team Providers Name Role Phone Clinic, [facility] Primary Care Provide r Reason for Visit Reason Onset Date Comments Consult 07/18/2016 triage Encounter Details Date Type Department Care Team Description 07/18/2016 Telephone [facility] Anabelle Thomas ult (triage) Maternal Medicine GENARO [place] [address] [address] [place] [address] Social History Tobacco Use Types Packs/Day Years Used Date Smoking Tobacco: Every Day Cigarettes 0.1 10 Smokeless Tobacco: Never Comments: 5 cigarettes a day Alcohol Use Standard Drinks/Week Comments No 0 (1 standard drink = 0.6 oz pure alcoho l) Sex Assigned at Date Recorded Female 01/14/2020 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 documented as of this encounter Miscellaneous Notes [...] Wound Care Hoa Luis Lex, DPM [address] [place] [address] (Wo rk) 01/21/2022 PRE VISIT Gastroenterology Landon Warren, *-*WANDAIN G RECORDS*-* MD Luis Fernando 516 [facility] 2A [place], [place] [address] (Wo rk) 01/21/2022 Office Visit Gastroenterology Juanis Levi [address] [place] [phone] Luis Fernando Miles MD [address] [address] documented as of this encounter Visit Diagnoses Not on filedocumented in this encounter Care Teams Paintings Restorer Relationship Specialty Start Date End Date Clinic, [facility] PCP - General 07/14/16 12/06/[address] [place] [address] documented as of this encounter
--- OUTSIDE RECORDS SUMMARY | 2021-12-13 12:40 | XMS_ITS | Encounter Summary ---
:1980 Author Organization [place] Address [address] [place] [address] Care Team Providers Name Role Phone Clinic, [facility] Primary Care Provide r Reason for Visit - Closed Specialty Diagnoses / Procedures Referred By Contact Refer red To Contact Diagnoses Supervision of high-risk , first trimester Ur Maternal Med [address] [place], [place] [address] Referral ID Status Reason Start Date Expiration Date Visits Requ ested Visits Authorized [id number] Closed 08/22/2016 08/22/2017 1 1 Encounter Details Date Type Department Care Team Description 09/03/2016 Office Visit [facility] Ilana Patel MD [address] [address] Canceled (Patient) Maternal Petrona Barone DO [address] [facility] [address] [place] [address] Medicine Center [facility] [address] [place], [place] [address] Social History Tobacco Use Types Packs/Day Years Used Date Smoking Tobacco: Every Day Cigarettes 0.1 10 Smokeless Tobacco: Never Comments: 5 cigarettes a day Alcohol Use Standard Drinks/Week Comments Yes 0 (1 standard drink = 0.6 oz pure Stoppe d after found out alcohol) Sex Assigned at Date Recorded Female 01/14/2020 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 documented as of this encounter Plan of Treatment Upcoming Encounters Date Type Specialty Care Team Description 12/20/2021 Office Visit Wound Care Luis Camara, [place]VIN [address] [place] [address] (Wo rk) 01/21/2022 PRE VISIT Gastroenterology Landon Warren, *-*WANDAIN G RECORDS*-* MD Luis Fernando [address] [place] [phone] (Wo rk) 01/21/2022 Office Visit Gastroenterology Juanis Levi [address] [place] [phone] Luis Fernando Miles MD [address] [place] [address] documented as of this encounter Visit Diagnoses Not on filedocumented in this encounter Care Teams Shook Splicer Relationship Specialty Start Date End Date Clinic, [facility] PCP - General 07/14/16 12/06/[address] [place] [address] documented as of this encounter
--- OUTSIDE RECORDS SUMMARY | 2021-12-13 12:41 | XMS_ITS | Encounter Summary ---
:1980 Author Organization [place] Address [address] [place] [address] Care Team Providers Name Role Phone Clinic, [facility] Primary Care Provide r Encounter Details Date Type Department Care Team Description 07/14/2016 Telephone [facility] Nurse Jackeline Serrano, Advisors RN [address] [place] [phone] Social History Tobacco Use Types Packs/Day Years Used Date Smoking Tobacco: Every Day Cigarettes 0.1 10 Smokeless Tobacco: Never Comments: 5 cigarettes a day Alcohol Use Standard Drinks/Week Comments No 0 (1 standard drink = 0.6 oz pure alcoho l) Sex Assigned at Date Recorded Female 01/14/2020 10:57 AM HHA documented as of this encounter Miscellaneous Notes [...] Visit Wound Care Luis Camara DPM [address] [place] [address] (Wo rk) 01/21/2022 PRE VISIT Gastroenterology Landon Warren, *-*WANDAIN G RECORDS*-* MD Luis Fernando [address] [address] (Wo rk) 01/21/2022 Office Visit Gastroenterology Juanis Levi [address] [place] [address] Luis Fernando Miles MD 516 [facility] 2A [place], [place] [phone] documented as of this encounter Visit Diagnoses Not on filedocumented in this encounter Care Teams Billing Customer Service Representative Relationship Specialty Start Date End Date Clinic, [facility] PCP - General 07/14/16 12/06/[address] [place] [address] documented as of this encounter
--- OUTSIDE RECORDS SUMMARY | 2021-12-13 12:41 | XMS_ITS | Encounter Summary ---
:1980 Author Organization [place] Address [address] [place] [address] Care Team Providers Name Role Phone System, Provider Not In Primary Care Provider Unavailable Reason for Visit Reason Onset Date Comments Prior Auth - Medication 10/26/2015 subutex 2 mg Encounter Details Date Type Department Care Team Description 10/26/2015 Telephone [facility] Edgar Alfredo Pri or Auth - Medication Clinic Ashly VÁSQUEZ (subutex 2 mg) [address] [place] [address] [place] [phone] (Wo rk) Social History Tobacco Use Types Packs/Day Years Used Date Smoking Tobacco: Every Day Cigarettes 0.1 10 Smokeless Tobacco: Never Comments: 5 cigarettes a day Alcohol Use Standard Drinks/Week Comments No 0 (1 standard drink = 0.6 oz pure alcoho l) Sex Assigned at Date Recorded Female 01/14/2020 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 documented in this encounter Plan of Treatment Upcoming Encounters Date Type Specialty Care Team Description 12/20/2021 Office Visit Wound Care Luis Camara, CALVIN [address] [place] [address] (Wo rk) 01/21/2022 PRE VISIT Gastroenterology Landon Warren, *-*HEATHER G RECORDS*-* MD Luis Fernando [address] [place] [address] [phone] (Wo rk) 01/21/2022 Office Visit Gastroenterology Juanis Levi [address] [place] [phone] Luis Fernando Miles MD [address] [place] [address] [phone] documented as of this encounter Visit Diagnoses Not on filedocumented in this encounter Care Teams Curriculum Coach Relationship Specialty Start Date End Date System, Provider Not In PCP - General Clinic 08/12/14 07/13/16 documented as of this encounter
--- OUTSIDE RECORDS SUMMARY | 2021-12-13 12:41 | XMS_ITS | Encounter Summary ---
:1980 Author Organization [place] Address [address] [facility] [place] [address] Care Team Providers Name Role Phone System, Provider Not In Primary Care Provider Unavailable Reason for Visit Reason Onset Date Comments Medication Request 06/03/2016 Subx bridge Encounter Details Date Type Department Care Team Description 06/03/2016 Telephone [facility] Edgar Alfredo, [facility] ication Request Clinic Ashly VÁSQUEZ (Subx bridge) [address] [place] [address] [place] [phone] (Wo rk) Social History Tobacco Use Types Packs/Day Years Used Date Smoking Tobacco: Every Day Cigarettes 0.1 10 Smokeless Tobacco: Never Comments: 5 cigarettes a day Alcohol Use Standard Drinks/Week Comments No 0 (1 standard drink = 0.6 oz pure alcoho l) Sex Assigned at Date Recorded Female 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 Pt would like script sent to [address] Dora Merchant Sap Bi Architect documented in this encounter Plan of Treatment Upcoming Encounters Date Type Specialty Care Team Description 12/20/2021 Office Visit Wound Care Luis Camara, DPM [address] [place] [address] (Wo rk) 01/21/2022 PRE VISIT Gastroenterology Landon Warren, *-*WANDAIN G RECORDS*-* MD Luis Fernando [address] [place] [address] [phone] (Wo rk) 01/21/2022 Office Visit Gastroenterology Juanis Levi [address] [place] [phone] Luis Fernando Miles MD [address] [place] [address] [phone] documented as of this encounter Visit Diagnoses Diagnosis Uncomplicated opioid dependence (H) Opioid type dependence, unspecified documented in this encounter Care Teams Coke Worker Relationship Specialty Start Date End Date System, Provider Not In PCP - General Clinic 08/12/14 07/13/16 documented as of this encounter
--- OUTSIDE RECORDS SUMMARY | 2021-12-13 12:41 | XMS_ITS | Encounter Summary ---
:1980 Author Organization [place] Address [address] [facility] [place] [address] Care Team Providers Name Role Phone System, Provider Not In Primary Care Provider Unavailable Reason for Visit Reason Onset Date Comments Prior Auth - Medication 06/13/2016 buprenorphine (S UBUTEX) 2 MG Encounter Details Date Type Department Care Team Description 06/13/2016 Telephone [facility] Edgar Alfredo Pri or Auth - Medication Clinic Ashly VÁSQUEZ (buprenorphine [address] [place] (SUBUTEX) 2 MG) [address] [place] [phone] (Wo rk) Social History Tobacco Use Types Packs/Day Years Used Date Smoking Tobacco: Every Day Cigarettes 0.1 10 Smokeless Tobacco: Never Comments: 5 cigarettes a day Alcohol Use Standard Drinks/Week Comments No 0 (1 standard drink = 0.6 oz pure alcoho l) Sex Assigned at Date Recorded Female 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 Lupe Lantigua MA Telephone Encounter - Lupe Lantigua CMA - 06/14/2016 9:48 AM CDT changed Subutex Rx to Suboxone instead. Staff called [facility] at [phone] and was informed an Prior Authorization is needed for buprenorphine HCl-naloxone HCl (SUBOXONE) 2-0.5 MG per film 25 Film. Staff called [facility] to Submit PA via phone for buprenorphine HCl- naloxone HCl (SUBOXONE) 2-0.5 MG per film 25 Film. Staff is waiting for a response. [place] Medicaid ID# [id number] NDC# [id number] Pharm NPI# [id number] Pharm Pharm Insurance Phone# Telephone Encounter - Mark Roldan - 06/13/2016 3:41 PM CDT Patient called she would like a call back on the Status of the PA. Pt contact info: [phone] Ok to leave derailed message. Mark Roldan Mounter Sousaphones Telephone Encounter - Dora Merchant - 06/13/2016 2:56 PM CDT Fax received from [facility] requesting that PA be re-submitted with pharmacy name, NPI, phone number and fax number. Another form received from pharmacy requesting that PA be submitted via covermymeds. Beatty: [id number] Poultice Machine Operator placed forms in provider's folder Dora Merchant Mounter Sousaphones Telephone Encounter - Sarah Calvert MA - 06/13/2016 1:54 PM CDT Per Insurance PA denied the authorization criteria were not met, documents verifying clear intolerance to naloxonemust be provided for detention therapy. Routing to provider to review and Advise Sarah Calvert MA June 13, 2016 Telephone Encounter - Mark Roldan - 06/13/2016 12:09 PM CDT PA denied the authorization criteria were not met, documents verifying clear intolerance to naloxonemust be provided for detention therapy. Poultice Machine Operator placed form in provider's folder. Mark Roldan Mounter Sousaphones Telephone Encounter - Dora Merchant - 06/13/2016 10:32 AM CDT Fax received from pharmacy 06/13/16 requesting an urgent PA. Pt has been out of medication for a while. Insurance phone #: [phone] Dora Merchant Mounter Sousaphones Telephone Encounter - Dora Merchant - 06/13/2016 8:23 AM CDT Incoming call from pt requesting a PA for buprenorphine (SUBUTEX) 2 MG. TC's have not received a PA request from the pharmacy. Prior Authorization needed on: 06/13/16 Medication: buprenorphine (SUBUTEX) Dose: 2 MG Insurance Name: [place] Insurance Phone: not available Insurance Dora Merchant June 13, 2016 at 8:24 AM documented in this encounter Plan of Treatment Upcoming Encounters Date Type Specialty Care Team Description 12/20/2021 Office Visit Wound Care Luis Camara DPM [address] [place] [address] (Wo rk) 01/21/2022 PRE VISIT Gastroenterology Landon Warren, *-*HEATHER G RECORDS*-* MD LuisF ernando [address] [facility] [address] [place] [address] (Wo rk) 01/21/2022 Office Visit Gastroenterology Juanis Levi [address] [place] [phone] Luis Fernando Miles MD [address] [facility] [address] [place], [place] [phone] documented as of this encounter Visit Diagnoses Not on filedocumented in this encounter Care Teams Overcoiler Relationship Specialty Start Date End Date System, Provider Not In PCP - General Clinic 08/12/14 07/13/16 documented as of this encounter
--- OUTSIDE RECORDS SUMMARY | 2021-12-13 12:41 | XMS_ITS | Encounter Summary ---
:1980 Author Organization [place] Address [address] [place] [address] Care Team Providers Name Role Phone System, Provider Not In Primary Care Provider Unavailable Reason for Visit Reason Onset Date Comments Erroneous encounter-disregard 02/12/2016 Encounter Details Date Type Department Care Team Description 02/12/2016 Office Visit [facility] Edgar Alfredo ERRONEOUS Clinic Ashly Gauthier MD ENCOUNTER--DISREGARD [address] [place] (Primary Dx) [address] [place] [phone] Social History Tobacco Use [...] encounter was opened in error. Please disregard. GEOVER OPERATOR documented in this encounter Plan of Treatment Upcoming Encounters Date Type Specialty Care Team Description 12/20/2021 Office Visit Wound Care Luis Camara, [place] [address] [place] [address] (Wo rk) 01/21/2022 PRE VISIT Gastroenterology Landon Warren, *-*WANDAIN G RECORDS*-* MD Luis Fernando [address] [phone] (Wo rk) 01/21/2022 Office Visit Gastroenterology Juanis Levi [address] [place] [phone] Luis Fernando Miles MD [address] [phone] documented as of this encounter Visit Diagnoses Diagnosis ERRONEOUS ENCOUNTER--DISREGARD - Primary documented in this encounter Care Teams Unbundler Relationship Specialty Start Date End Date System, Provider Not In PCP - General Clinic 08/12/14 07/13/16 documented as of this encounter
--- OUTSIDE RECORDS SUMMARY | 2021-12-13 12:41 | XMS_ITS | Encounter Summary ---
:1980 Author Organization [place] Address [address] [facility] [place] [address] Care Team Providers Name Role Phone System, Provider Not In Primary Care Provider Unavailable Reason for Visit Reason Onset Date Comments Medication Request 01/01/2016 Bridge for Subutex Encounter Details Date Type Department Care Team Description 01/01/2016 Telephone [facility] Edgar Alfredo, [facility] ication Request Clinic Ashly VÁSQUEZ (Bridge for Subutex) [address] [place] [address] [place] [phone] (Wo rk) Social History Tobacco Use Types Packs/Day Years Used Date Smoking Tobacco: Every Day Cigarettes 0.1 10 Smokeless Tobacco: Never Comments: 5 cigarettes a day Alcohol Use Standard Drinks/Week Comments No 0 (1 standard drink = 0.6 oz pure alcoho l) Sex Assigned at Date Recorded Female 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 Thank you, Dora Merchant Army Helicopter Pilot [facility] R GENERATION TURBINE ROOM OPERATOR Telephone Encounter - Sherwindave Mark - 01/01/2016 9:16 AM CST Reason for Call: Bridge for Subutex Detailed comments: pt can't make her appt today, its reschedule to 01/07, pt 's requesting a bridge for Subutex Phone Number Patient can be reached at: Home number on file [phone] (home) Best Time: anytime Can we leave a detailed message on this number? YES Call taken on 01/01/2016 at 9:16 AM by Mark Roldan Thank you, Mark Roldan Army Helicopter Pilot [facility] R GENERATION TURBINE ROOM OPERATOR documented in this encounter Plan of Treatment Upcoming Encounters Date Type Specialty Care Team Description 12/20/2021 Office Visit Wound Care Luis Camara, [place] [address] [place] [address] (Wo rk) 01/21/2022 PRE VISIT Gastroenterology Landon Warren, *-*WANDAIN G RECORDS*-* MD Luis Fernando [address] [place] [address] (Wo rk) 01/21/2022 Office Visit Gastroenterology Juanis Levi [address] [place] [phone] Luis Fernando Miles MD [address] [place] [address] [phone] documented as of this encounter Visit Diagnoses Diagnosis Uncomplicated opioid dependence (H) - Pr imary Opioid type dependence, unspecified documented in this encounter Care Teams C++ Quant Developer Relationship Specialty Start Date End Date System, Provider Not In PCP - General Clinic 08/12/14 07/13/16 documented as of this encounter
--- OUTSIDE RECORDS SUMMARY | 2021-12-13 12:41 | XMS_ITS | Encounter Summary ---
:1980 Author Organization [place] Address [address] [facility] [place] [address] Care Team Providers Name Role Phone System, Provider Not In Primary Care Provider Unavailable Reason for Visit Reason Comments Drug Problem Encounter Details Date Type Department Care Team Description 06/17/2016 Office Visit [facility] Edgar Alfredo Uncomplic ated opioid dependence (H) (Primary Dx); Clinic Ashly Gauthier MD Major depressive disorder, recurrent epi sode, moderate (H) [address] [place] [address] [place] [phone] Social History Tobacco Use Types Packs/Day Years Used Date Smoking Tobacco: Every Day Cigarettes 0.1 10 Smokeless Tobacco: Never Comments: 5 cigarettes a day Alcohol Use Standard Drinks/Week Comments No 0 (1 standard drink = 0.6 oz pure alcoho l) Sex Assigned at Date Recorded Female 01/14/2020 10:57 AM MASSEUR/MASSEUSE documented as of this encounter Last Filed [...] Take 1 tablet by mouth daily ??? Ymxnoncu-Rnm-Or-FA ( VITAMINS) 0.8 MG TABS Take 1 [...] Panel 13 Result Value Ref Range Cannabinoids (57-jnr-9-emihyjs-4-DLQ) NDET ng/mL Not Detected Cutoff for a [...] be used for medical purposes only. Order [id number] for confirmation or individual confirmation tests to [employer]. Beta HCG qual IFA urine Result Value Ref Range Beta HCG Qual IFA Urine Negative NEG 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 FOR LOAN CONSULTANT USE OF HIGH RISK MEDICATION High Risk [...] in [address] Alfred[address] [facility] documented in this encounter Plan of Treatment Upcoming Encounters Date Type Specialty Care Team Description 12/20/2021 Office Visit Wound Care Luis Camara DPM [address] [place] [address] (Wo rk) 01/21/2022 PRE VISIT Gastroenterology Landon Warren, *-*WANDAIN G RECORDS*-* MD Luis Fernando [address] [place] [address] [phone] (Wo rk) 01/21/2022 Office Visit Gastroenterology Juanis Levi [address] [place] [address] Luis Fernando Miles MD [address] [place] [address] documented as of this encounter Procedures [...] Organization Address City/State/ZIP Code Phon [place] Number [place], [place] [id number] [place] [address] PRIMARY CARE [facility] [address] [address] [facility] (ABNORMAL) Urine Drugs of Abuse Screen Panel 13 (06/17/2016 11:29 AM CDT) Component Value Ref Test Analysis Performed Pathologis t Range Method Time At Signature Cannabinoids Not Detected [facility] LAB (55-rhs-4-carboxy- Cutoff for a negative cannabinoid is 50 [...] ng/mL ) Opiates (Morphine) Not Detected NDET [facility] Cutoff for a negative opiate is [...] be used for medical purposes only. Order [id number] for confirmation or individual confirmation tests to [employer]. (A) Specimen Anatomical Collection Method Collection Time Receive d Time (Source) Location / / Volume Laterality Urine specimen 06/17/2016 11:29 7 (specimen) AM CDT 11:30 AM CDT Edgar Alfredo MD LAB - URINE ORDERABLES Performing Organization Address City/State/[place] [address] [facility] Building [address] [facility] documented in this encounter Visit Diagnoses Diagnosis Uncomplicated opioid dependence (H) - Pr imary Opioid type dependence, unspecified Major depressive disorder, recurrent epi sode, moderate (H) Major depressive disorder, recurrent epi sode, moderate documented in this encounter Care Teams Patient Monitor Relationship Specialty Start Date End Date System, Provider Not In PCP - General Clinic 08/12/14 07/13/16 documented as of this encounter
--- OUTSIDE RECORDS SUMMARY | 2021-12-13 12:41 | XMS_ITS | Encounter Summary ---
:1980 Author Organization [place] Address [address] [facility] [place] [address] Care Team Providers Name Role Phone System, Provider Not In Primary Care Provider Unavailable Reason for Visit Reason Onset Date Comments Medication Request 06/19/2016 Suboxone Encounter Details Date Type Department Care Team Description 06/19/2016 Telephone [facility] Edgar Alfredo, [facility] ication Request Clinic Ashly VÁSQUEZ (Suboxone ) [address] [place] [address] [place] [phone] (Wo rk) Social History Tobacco Use Types Packs/Day Years Used Date Smoking Tobacco: Every Day Cigarettes 0.1 10 Smokeless Tobacco: Never Comments: 5 cigarettes a day Alcohol Use Standard Drinks/Week Comments No 0 (1 standard drink = 0.6 oz pure alcoho l) Sex Assigned at Date Recorded Female 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 Pt would like script sent to: [place], [place] - [address] [place] [address] Dora Merchant Admissions Specialist documented in this encounter Plan of Treatment Upcoming Encounters Date Type Specialty Care Team Description 12/20/2021 Office Visit Wound Care Luis Camara, CALVIN [address] [place] [address] (Wo rk) 01/21/2022 PRE VISIT Gastroenterology Landon Warren, *-*WANDAIN G RECORDS*-* MD Luis Fernando [address] [place] [address] (Wo rk) 01/21/2022 Office Visit Gastroenterology Juanis Levi [address] [place] [phone] Luis Fernando Miles MD [address] [place] [address] documented as of this encounter Visit Diagnoses Diagnosis Uncomplicated opioid dependence (H) - Pr imary Opioid type dependence, unspecified documented in this encounter Care Teams Enrollment Representative Relationship Specialty Start Date End Date System, Provider Not In PCP - General Clinic 08/12/14 07/13/16 documented as of this encounter
--- OUTSIDE RECORDS SUMMARY | 2021-12-13 12:41 | XMS_ITS | Encounter Summary ---
:1980 Author Organization [place] Address [address] [facility] [place] [address] Care Team Providers Name Role Phone System, Provider Not In Primary Care Provider Unavailable Reason for Visit Reason Onset Date Comments Medication Request 10/25/2015 Encounter Details Date Type Department Care Team Description 10/25/2015 Telephone [facility] Edgar Alfredo Ma, Medication Request [place] [address] [place] [address] [place] [phone] (Reinaldo rk) Social History Tobacco Use Types Packs/Day Years Used Date Smoking Tobacco: Every Day Cigarettes 0.1 10 Smokeless Tobacco: Never Comments: 5 cigarettes a day Alcohol Use Standard Drinks/Week Comments No 0 (1 standard drink = 0.6 oz pure alcoho l) Sex Assigned at Date Recorded Female 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 documented as of this encounter Miscellaneous Notes Addendum Note - Suyapa Murray CMA - 10/26/2015 11:09 AM CDT Addended by: SUYAPA MURRAY on: 10/26/2015 11:09 AM Modules accepted: Medications Telephone Encounter - Suyapa Murray CMA - 10/26/2015 11:09 AM CDT Rx called to [facility] Telephone Encounter - Edgar Alfredo MD [...] Visit Wound Care Luis Camara, [place] [address] [place], [place] [address] (Wo rk) 01/21/2022 PRE VISIT Gastroenterology Landon Warren, *-*INCOMIN G RECORDS*-* MD Luis Fernando [address] [place] [address] [phone] (Wo rk) 01/21/2022 Office Visit Gastroenterology Juanis Levi [address] [place] [phone] Luis Fernando Miles MD [address] [place] [address] [phone] documented as of this encounter Visit Diagnoses Diagnosis Uncomplicated opioid dependence (H) - Pr imary Opioid type dependence, unspecified documented in this encounter Care Teams Consumer Educator Relationship Specialty Start Date End Date System, Provider Not In PCP - General Clinic 08/12/14 07/13/16 documented as of this encounter
--- OUTSIDE RECORDS SUMMARY | 2021-12-13 12:41 | XMS_ITS | Encounter Summary ---
:1980 Author Organization [place] Address [address] [facility] [place] [address] Care Team Providers Name Role Phone System, Provider Not In Primary Care Provider Unavailable Reason for Visit Reason Onset Date Comments Patient Request 11/22/2015 [facility] appt Encounter Details Date Type Department Care Team Description 11/22/2015 Telephone [facility] Edgar Alfredo Pat ient Request ([facility] appt ) [address] [place] [address] [place] [phone] (Wo rk) Social History Tobacco Use Types Packs/Day Years Used Date Smoking Tobacco: Every Day Cigarettes 0.1 10 Smokeless Tobacco: Never Comments: 5 cigarettes a day Alcohol Use Standard Drinks/Week Comments No 0 (1 standard drink = 0.6 oz pure alcoho l) Sex Assigned at Date Recorded Female 01/14/2020 10:57 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 Pt refused to disclose to process description writer why she'd like to be seen sooner. Please follow up. Contact info: [phone] (Ok to leave detailed message, per pt) Thank you, Dora Merchant Carbon Paper Coating Machine Setter [facility] documented in this encounter Plan of Treatment Upcoming Encounters Date Type Specialty Care Team Description 12/20/2021 Office Visit Wound Care Luis Camara, CALVIN [address] [place] [address] (Wo rk) 01/21/2022 PRE VISIT Gastroenterology Landon Warren, *-*HEATHER G RECORDS*-* MD Luis Fernando [address] [place] [address] [phone] (Wo rk) 01/21/2022 Office Visit Gastroenterology Juanis Levi [address] [place] [phone] Luis Fernando Miles MD [address] [place] [phone] documented as of this encounter Visit Diagnoses Not on filedocumented in this encounter Care Teams Training Technician Relationship Specialty Start Date End Date System, Provider Not In PCP - General Clinic 08/12/14 07/13/16 documented as of this encounter
--- OUTSIDE RECORDS SUMMARY | 2021-12-13 12:41 | XMS_ITS | Encounter Summary ---
:1980 Author Organization [place] Address [address] [facility] [place] [address] Care Team Providers Name Role Phone System, Provider Not In Primary Care Provider Unavailable Encounter Details Date Type Department Care Team Description 06/13/2016 Telephone [facility] Nithya Alfredo MD [place] [address] [place] [address] [place], [place] [address] [phone] [place] [phone] Social History Tobacco Use Types Packs/Day Years Used Date Smoking Tobacco: Every Day Cigarettes 0.1 10 Smokeless Tobacco: Never Comments: 5 cigarettes a day Alcohol Use Standard Drinks/Week Comments No 0 (1 standard drink = 0.6 oz pure alcoho l) Sex Assigned at Date Recorded Female 01/14/2020 10:57 AM BABY NURSE documented as of this encounter Miscellaneous Notes Telephone Encounter - Edgar Alfredo MD - 06/13/2016 1:57 PM CDT Subutex denied Suboxone film ordered Appointment 06/17/16 documented in this encounter Plan of Treatment Upcoming Encounters Date Type Specialty Care Team Description 12/20/2021 Office Visit Wound Care Luis Camara DPM [address] [place] [address] (Wo rk) 01/21/2022 PRE VISIT Gastroenterology Landon Warren, *-*WANDAIN G RECORDS*-* MD Luis Fernando 6 [facility] [address] [place], [place] [address] (Wo rk) 01/21/2022 Office Visit Gastroenterology Juanis Levi [address] [place] [address] Luis Fernando Miles MD [address] [place] [phone] documented as of this encounter Visit Diagnoses Not on filedocumented in this encounter Care Teams Carburetor Mechanic Relationship Specialty Start Date End Date System, Provider Not In PCP - General Clinic 08/12/14 07/13/16 documented as of this encounter
--- OUTSIDE RECORDS SUMMARY | 2021-12-13 12:41 | XMS_ITS | Encounter Summary ---
:1980 Author Organization [place] Address [address] [facility] [place] [address] Care Team Providers Name Role Phone System, Provider Not In Primary Care Provider Unavailable Reason for Visit Reason Onset Date Comments Recheck Medication Erroneous encounter-disregard 10/24/2015 Encounter Details Date Type Department Care Team Description 10/24/2015 Office Visit [facility] Edgar Alfredo NO SHOW ( Primary Dx) Clinic Ashly Gauthier MD [address] [place] [address] [place] [phone] [...] SERVICE CONSULTANT documented as of this encounter Progress Notes Edgar Alfredo MD - 10/24/2015 1:06 PM CDT This encounter was opened in error. Please disregard. documented in this encounter Plan of Treatment Upcoming Encounters Date Type Specialty Care Team Description 12/20/2021 Office Visit Wound Care Luis Camara, DPCamryn [address] [place] [address] (Wo rk) 01/21/2022 PRE VISIT Gastroenterology Landon Warren, *-*WANDAIN G RECORDS*-* MD Luis Fernando [address] [address] (Wo rk) 01/21/2022 Office Visit Gastroenterology Juanis Levi [address] [place] [phone] Luis Fernando Miles MD [address] [address] documented as of this encounter Visit Diagnoses Diagnosis NO SHOW - Primary documented in this encounter Care Teams Director Of Enrollment Relationship Specialty Start Date End Date System, Provider Not In PCP - General Clinic 08/12/14 07/13/16 documented as of this encounter
--- OUTSIDE RECORDS SUMMARY | 2021-12-13 12:41 | XMS_ITS | Encounter Summary ---
:1980 Author Organization [place] Address [address] [facility] [place] [address] Care Team Providers Name Role Phone System, Provider Not In Primary Care Provider Unavailable Reason for Visit Reason Comments Recheck Medication Encounter Details Date Type Department Care Team Description 01/08/[address] [facility] Edgar Alfredo Uncomplic ated opioid Clinic Ashly Gauthier MD dependence (H) (Primary [address] Dx) [address] [place] [address] [place] [phone] Social History Tobacco Use Types Packs/Day Years Used Date Smoking Tobacco: Every Day Cigarettes 0.1 10 Smokeless Tobacco: Never Comments: 5 cigarettes a day Alcohol Use Standard Drinks/Week Comments No 0 (1 standard drink = 0.6 oz pure alcoho l) Sex Assigned at Date Recorded Female 01/14/2020 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 SECRETARY documented as of this encounter Last Filed Vital Signs Vital Sign Reading Time Taken Comments Blood Pressure 126/99 01/08/2016 10:27 AM 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 SECRETARY Pulse 112 01/08/2016 10:27 AM 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 SECRETARY Temperature 36.7 ??C (98 ??F) 01/08/2016 10:27 AM 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 SECRETARY Respiratory Rate 10 01/08/2016 10:27 AM 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 SECRETARY Oxygen Saturation 99% 01/08/2016 10:27 AM 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 SECRETARY Inhaled Oxygen Concentration - - Weight 79.8 kg (176 lb) 01/08/2016 10:27 AM 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 SECRETARY Height - - Body Mass Index 28.84 01/07/2013 11:29 AM 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 SECRETARY documented in this encounter Progress Notes Edgar [...] DOESN'T CONNECT WITH USERS ANYMORE GOES TO [facility], BIB STUDY DISCUSSED DOSE - [...] program has been: ignored. BUT GOES TO [facility] Accompanying Signs & Symptoms: ?? [...] Take 1 tablet by mouth daily ??? Vqrdzkku-Thz-Bj-FA ( VITAMINS) 0.8 MG TABS Take 1 [...] Positive 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 FOR INTERMEDIATE USE OF HIGH RISK MEDICATION High Risk [...] I DON'T DO DRUGS Edgar Alfredo MD [facility] NISTRATIVE SECRETARY documented in this encounter Plan of Treatment Upcoming Encounters Date Type Specialty Care Team Description 12/20/2021 Office Visit Wound Care Luis Camara, [place] [address] [place] [address] (Wo rk) 01/21/2022 PRE VISIT Gastroenterology Landon Warren, *-*INCOMIN G RECORDS*-* MD Luis Fernando [address] [facility] [address] [place], [place] [address] (Wo rk) 01/21/2022 Office Visit Gastroenterology Juanis Levi [address] [place] [phone] Luis Fernando Miles MD [address] [facility] [address] [place], [place] [phone] documented as of this encounter Procedures Procedure Name Priority Date/Time Associated Comments Diagnosis BUPRENORPHINE QUAL Routine 01/08/2016 10:24 Resul ts for this URINE AM 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 SECRETARY procedure are i n the results section. DRUG ABUSE SCREEN (NL, Routine 01/08/2016 10:24 R esults for this RW) AM 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 SECRETARY procedure are i n the results section. documented in this encounter Results Buprenorphine Qual Urine (01/08/2016 10:24 AM 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 SECRETARY) Patholo gist Method Time Signature Buprenorphine Positive [facility] LAB Qual Urine Specimen Anatomical Collection Method Collection Time Receive d Time (Source) Location / / Volume Laterality Urine specimen 01/08/2016 10:24 6 (specimen) AM 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 SECRETARY 10:25 AM 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 SECRETARY Edgar Alfredo MD LAB - URINE ORDERABLES Performing Organization Address City/State/[place] [address] [facility] Building [address] [facility] [address] [facility] LAB (ABNORMAL) Drug abuse screen (NL, RW) (01/08/2016 10:24 AM 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 SECRETARY) Component Value Ref Test Analysis Performed Pathologis [...] Urine specimen 01/08/2016 10:24 6 (specimen) AM 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 SECRETARY 10:25 AM 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 SECRETARY Edgar Alfredo MD LAB - URINE ORDERABLES Performing Organization Address City/State/[place] [address] [facility] Building [address] [address] [facility]J LAB documented in this encounter Visit Diagnoses Diagnosis Uncomplicated opioid dependence (H) - Pr imary Opioid type dependence, unspecified documented in this encounter Care Teams Associate Programmer Relationship Specialty Start Date End Date System, Provider Not In PCP - General Clinic 08/12/14 07/13/16 documented as of this encounter
--- OUTSIDE RECORDS SUMMARY | 2021-12-13 12:41 | XMS_ITS | Encounter Summary ---
:1980 Author Organization [place] Address [address] [facility] [place] [address] Care Team Providers Name Role Phone System, Provider Not In Primary Care Provider Unavailable Reason for Visit Reason Comments Recheck Medication Encounter Details Date Type Department Care Team Description 09/28/2015 Office Visit [facility] Edgar Alfredoplic ated opioid dependence (H) (Primary Dx); Clinic Ashly Gauthier MD Major depressive disorder, recurrent epi sode, moderate (H) [address] [place] [address] [place] [phone] Social History Tobacco Use Types Packs/Day Years Used Date Smoking Tobacco: Every Day Cigarettes 0.1 10 Smokeless Tobacco: Never Comments: 5 cigarettes a day Alcohol Use Standard Drinks/Week Comments No 0 (1 standard drink = 0.6 oz pure alcoho l) Sex Assigned at Date Recorded Female 01/14/2020 10:57 AM ENERGY ENGINEER documented as of this encounter Last [...] THE SAME NO RECOVERY PROGRAM OTHER THAN [employer] SU[employer] Status since last visit: Since last [...] Take 1 tablet by mouth daily ??? Tcfdbjpe-Zyn-Qn-FA ( VITAMINS) 0.8 MG TABS Take 1 [...] in 1 MONTH Edgar Alfredo MD [facility] documented in this encounter [...] Visit Wound Care Luis Camara DPM [address] [place] [address] (Wo rk) 01/21/2022 PRE VISIT Gastroenterology Landon Warren, *-*INCOMIN G RECORDS*-* MD Luis Fernando [address] [facility] [place], [place] [address] (Wo rk) 01/21/2022 Office Visit Gastroenterology Juanis Levi [address] [place] [phone] Luis Fernando Miles MD [address] [facility] [place], [place] [address] documented as of this encounter Procedures Procedure [...] Organization Address City/State/[place] [address] [facility] Building [address] [...] Organization Address City/State/[place] [address] [facility] Building [address] [address] LAB documented in this encounter Visit Diagnoses Diagnosis Uncomplicated opioid dependence (H) - Pr imary Opioid type dependence, unspecified Major depressive disorder, recurrent epi sode, moderate (H) Major depressive disorder, recurrent epi sode, moderate documented in this encounter Care Teams Archeologist Relationship Specialty Start Date End Date System, Provider Not In PCP - General Clinic 08/12/14 07/13/16 documented as of this encounter
--- OUTSIDE RECORDS SUMMARY | 2021-12-13 12:41 | XMS_ITS | Encounter Summary ---
:1980 Author Organization [place] Address [address] [facility] [place] [address] Care Team Providers Name Role Phone System, Provider Not In Primary Care Provider Unavailable Reason for Visit Reason Comments Recheck Medication Encounter Details Date Type Department Care Team Description 11/06/2015 Office Visit [facility] Edgar Alfredo Seasonal allergic rhinitis (Primary Dx); Clinic Ashly Gauthier MD Uncomplicated opioid dependence (H) [address] [address] [place] [phone] Social History Tobacco Use Types Packs/Day Years Used Date Smoking Tobacco: Every Day Cigarettes 0.1 10 Smokeless Tobacco: Never Comments: 5 cigarettes a day Alcohol Use Standard Drinks/Week Comments No 0 (1 standard drink = 0.6 oz pure alcoho l) Sex Assigned at Date Recorded Female 01/14/2020 10:57 AM DIRECTORY ASSISTANCE OPERATOR documented as of this encounter Last [...] Take 1 tablet by mouth daily ??? Hjigfwea-Xzt-Xa-FA ( VITAMINS) 0.8 MG TABS Take 1 tablet by mouth daily 30 tablet 6 ??? [DISCONTINUED] VITAMINS PO Take by mouth. No Known Allergies Problem list, Medication list, Allergies, and Medical/Social/Surgical histories reviewed in [facility] andupdated as appropriate. ROS: OBJECTIVE: BP 114/72 [...] visit in 1 MONTH Edgar Alfredo MD [facility] documented in this encounter [...] Visit Wound Care Luis Camara, [place] [address] [place], [place] [address] (Wo rk) 01/21/2022 PRE VISIT Gastroenterology Landon Warren, *-*HEATHER Barriga RECORDS*-* MD Luis Fernando [address] [address] (Wo rk) 01/21/2022 Office Visit Gastroenterology Juanis Levi [address] [place] [phone] Luis Fernando Miles MD [address] [phone] documented as of this encounter Procedures Procedure [...] (specimen) AM CDT 11:00 AM CDT Edgar Alrfedo MD LAB - URINE ORDERABLES Performing Organization Address City/State/[place] [address] [facility] Building [address] LAB Drug abuse screen (NL, RW) (11/06/2015 [...] Organization Address City/State/[place] [address] [facility] Building [address] [address] [facility] LAB documented in this encounter Visit Diagnoses Diagnosis Seasonal allergic rhinitis - Primary Allergic rhinitis, cause unspecified Uncomplicated opioid dependence (H) Opioid type dependence, unspecified documented in this encounter Care Teams Airplane Cabin Attendant Relationship Specialty Start Date End Date System, Provider Not In PCP - General Clinic 08/12/14 07/13/16 documented as of this encounter
--- OUTSIDE RECORDS SUMMARY | 2021-12-13 12:41 | XMS_ITS | Encounter Summary ---
:1980 Author Organization [place] Address [address] [facility] [place] [address] Care Team Providers Name Role Phone System, Provider Not In Primary Care Provider Unavailable Reason for Visit Reason Onset Date Comments Recheck Medication Erroneous encounter-disregard 01/08/2016 Encounter Details Date Type Department Care Team Description 01/01/2016 Office Visit [facility] Edgar Alfredo ERRONEOUS Clinic Ashly Gauthier MD ENCOUNTER--DISREGARD [address] [place] (Primary Dx) [address] [place] [phone] Social History Tobacco Use Types Packs/Day Years Used Date Smoking Tobacco: Every Day Cigarettes 0.1 10 Smokeless Tobacco: Never Comments: 5 cigarettes a day Alcohol Use Standard Drinks/Week Comments No 0 (1 standard drink = 0.6 oz pure alcoho l) Sex Assigned at Date Recorded Female 01/14/2020 10:57 AM CLASSIFICATIONS OFFICER CC/CM documented as of this encounter Progress Notes Edgar Alfredo MD - 01/08/2016 4:23 PM CST This encounter was opened in error. Please disregard. SIFICATIONS OFFICER CC/CM documented in this encounter Plan of Treatment Upcoming Encounters Date Type Specialty Care Team Description 12/20/2021 Office Visit Wound Care Luis Camara DPM [address] [place], [place] [phone] (Wo rk) 01/21/2022 PRE VISIT Gastroenterology Landon Warren, *-*WANDAIN G RECORDS*-* MD Luis Fernando [address] [phone] (Wo rk) 01/21/2022 Office Visit Gastroenterology Juanis Levi [address] [place] [phone] Luis Fernando Miles MD [address] [address] documented as of this encounter Visit Diagnoses Diagnosis ERRONEOUS ENCOUNTER--DISREGARD - Primary documented in this encounter Care Teams Rfid Strategist Relationship Specialty Start Date End Date System, Provider Not In PCP - General Clinic 08/12/14 07/13/16 documented as of this encounter
--- OUTSIDE RECORDS SUMMARY | 2021-12-13 12:41 | XMS_ITS | Encounter Summary ---
:1980 Author Organization [place] Address [address] [facility] [place] [address] Care Team Providers Name Role Phone System, Provider Not In Primary Care Provider Unavailable Reason for Visit Reason Comments Recheck Medication Encounter Details Date Type Department Care Team Description 02/13/[address] [facility] Edgar Alfredo Uncomplic ated opioid Clinic Ashly Gauthier MD dependence (H) (Primary [address] Dx) [address] [place] [address] [place] [phone] Social History Tobacco Use Types Packs/Day Years Used Date Smoking Tobacco: Every Day Cigarettes 0.1 10 Smokeless Tobacco: Never Comments: 5 cigarettes a day Alcohol Use Standard Drinks/Week Comments No 0 (1 standard drink = 0.6 oz pure alcoho l) Sex Assigned at Date Recorded Female 01/14/2020 10:57 AM FABRICATION WELDER documented as of this encounter Last Filed Vital Signs Vital Sign Reading Time Taken Comments Blood Pressure 145/97 02/13/2016 10:59 AM FABRICATION WELDER Pulse 113 02/13/2016 10:59 AM FABRICATION WELDER Temperature 36.6 ??C (97.9 ??F) 02/13/2016 10:59 AM FABRICATION WELDER Respiratory Rate 10 02/13/2016 10:59 AM FABRICATION WELDER Oxygen Saturation 98% 02/13/2016 10:59 AM FABRICATION WELDER Inhaled Oxygen Concentration - - Weight 79.4 kg (175 lb) 02/13/2016 10:59 AM FABRICATION WELDER Height - - Body Mass Index 28.68 01/07/2013 11:29 AM FABRICATION WELDER documented in this encounter Progress Notes Edgar [...] Take 1 tablet by mouth daily ??? Ixlwkegy-Pxg-St-FA ( VITAMINS) 0.8 MG TABS Take 1 [...] less. 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 FOR PROPOSAL CONSULTANT USE OF HIGH RISK MEDICATION High [...] visit in 2 MONTHS Edgar Alfredo MD [facility] ICATION WELDER documented in this encounter Plan of Treatment Upcoming Encounters Date Type Specialty Care Team Description 12/20/2021 Office Visit Wound Care Luis Camara DPM [address] [place], [place] [phone] (Reinaldo molina) 01/21/2022 PRE VISIT Gastroenterology Landon Warren, *-*HEATHER Barriga RECORDS*-* MD Luis Fernando [address] [facility] [address] [place], [place] [address] (Reinaldo molina) 01/21/2022 Office Visit Gastroenterology Amita Juanis M [address] [phone] Luis Fernando Miles MD [address] [facility] [address] [place] [address] documented as of this encounter Procedures Procedure Name Priority Date/Time Associated Diagnosis Comme nts BUPRENORPHINE QUAL Routine 02/13/2016 10:58 Uncomplicated opio id Results for this URINE AM FABRICATION WELDER dependence (H) procedure are in the results section. DRUG ABUSE SCREEN Routine 02/13/2016 10:58 Uncomplicated opioi d Results for this (NL, RW) AM FABRICATION WELDER dependence (H) procedure are in the results section. documented in this encounter Results Drug abuse screen (NL, RW) (02/13/2016 10:58 AM FABRICATION WELDER) Component Value Ref Test Analysis Performed Pathologis [...] Urine specimen 02/13/2016 10:58 6 (specimen) AM FABRICATION WELDER 10:59 AM FABRICATION WELDER Edgar Alfredo MD LAB - URINE ORDERABLES Performing Organization Address [facility] [place] [address] [facility] Building [address] [facility] LAB Buprenorphine Qual Urine (02/13/2016 10:58 AM FABRICATION WELDER) [facility] Method Time Signature Buprenorphine Positive [facility] LAB Qual Urine Specimen Anatomical Collection Method Collection Time Receive d Time (Source) Location / / Volume Laterality Urine specimen 02/13/2016 10:58 6 (specimen) AM FABRICATION WELDER 10:59 AM FABRICATION WELDER Edgar Alfredo MD LAB - URINE ORDERABLES Performing Organization Address [facility] [place] [address] [facility] Building [address] [facility] LAB documented in this encounter Visit Diagnoses Diagnosis Uncomplicated opioid dependence (H) - Pr imary Opioid type dependence, unspecified documented in this encounter Care Teams Home Care Companion Relationship Specialty Start Date End Date System, Provider Not In PCP - General Clinic 08/12/14 07/13/16 documented as of this encounter
--- OUTSIDE RECORDS SUMMARY | 2021-12-13 12:41 | XMS_ITS | Encounter Summary ---
:1980 Author Organization [place] Address [facility] [place] [address] Care Team Providers Name Role Phone Clinic, [facility] Primary Care Provide r Reason for Visit Reason Comments Threatened Miscarriage Encounter Details Date Type Department Care Team Description 07/14/2016 Emergency [facility] Santosh Spears, Twin gestation in first trimester, unspecified multiple gestation type; [facility] Emergency Dep t Threatened miscarriage in early pregnanc y [address] [facility] [place], [place] [address] [address] [phone] [facility] [address] [place] [address] (Wo rk) Social History Tobacco Use Types Packs/Day Years Used Date Smoking Tobacco: Every Day Cigarettes 0.1 10 Smokeless Tobacco: Never Comments: 5 cigarettes a day Alcohol Use Standard Drinks/Week Comments No 0 (1 standard drink = 0.6 oz pure alcoho l) Sex Assigned at Date Recorded Female 01/14/2020 10:57 AM STREAM CONTROL OFFICER documented as of this encounter Last Filed [...] care of you today. Thanks for visiting [facility] Emergency Room. Santosh Spears MD Vaginal [...] by 30 tablet 6 12/10/2012 08/30/19 17 Vmmbwvyc-Cph-Go-FA mouth daily ( VITAMINS) 0.8 MG TABSIndications: [...] smoker, 0.10 PPD. Alcohol Use: Yes PCP: [facility] Review of Systems Constitutional: Positive for fatigue. [...] understanding of the findings. Laboratory: HCG Quantitative: 57470 (H) CBC: WBC 7.9, HGB 12.6, PLT [...] and the provider's statements to me. 07/14/2016 [facility] EM[facility]Y [facility]PART[facility] Santosh Spears MD 07/14/16 1206 documented in this encounter Plan of Treatment Upcoming Encounters Date Type Specialty Care Team Description 12/20/2021 Office Visit Wound Care Luis Camara, [place] [address] [place] [address] (Wo rk) 01/21/2022 PRE VISIT Gastroenterology Landon Warren, *-*INCOMIN G RECORDS*-* MD Luis Fernando [address] [place] [address] (Wo rk) 01/21/2022 Office Visit Gastroenterology Juanis Levi [address] [place] [address] Luis Fernando Miles MD [address] [place] [address] documented as of this encounter Procedures [...] a mean sac diameter of 1.4 cm. Mertens-rump length is 0.5 cm this cor responds to a gestational age of 6 weeks 2 days. Estimated date of del elmira is 03/07/2017. Yolk sac is identified. Heart rate is 1 26 bpm. Gestational sac B measures mean sac diam eter 0.8 cm. This corresponds to an age of 5 weeks 3 days. Mertens-rump length is 0.3 cm corresponding to a [...] a mean sac diameter of 1.4 cm. Mertens-rump length is 0.5 cm this cor responds to a gestational age of 6 weeks 2 days. Estimated date of del elmira is 03/07/2017. Yolk sac is identified. Heart rate is 1 26 bpm. Gestational sac B measures mean sac diam eter 0.8 cm. This corresponds to an age of 5 weeks 3 days. Mertens-rump length is 0.3 cm corresponding to a [...] Immune Globulin Study (07/14/2016 7:46 AM CDT) [facility] MoPowered Method Time Signature ABO B [facility] RH(D) Pos [facility] Blood Canceled, [place] Screen Test [facility] Blood Bank Not suitable for Rh Immune Globulin [facility] Comment Patien is Rh Positive [facility] Amount of RHIG Not suitable [facility] Required for Rh [facility] Globulin Specimen Anatomical Collection Method Collection Time Receive d Time (Source) Location / / Volume Laterality 07/14/2016 7:46 AM 7 7:58 CDT AM CDT Santosh Spears MD LAB - BLOOD BANK TEST ORDER Performing Organization Address City/State/ZIP Code Phon e Number [place] [address] [place], [place] [address] [facility] [address] [place], [place] [address] [facility] [phone] ABO/Rh type and screen (07/14/2016 7:46 AM CDT) [facility] MoPowered Method Time Signature ABO B [facility] RH(D) Pos [facility] Antibody Neg [place] Screen [facility] Test Valid [place] [facility] Only At [facility] Specimen 07/17/2016 [facility] Specimen Anatomical Collection Method Collection Time Receive d Time (Source) Location / / Volume Laterality Blood specimen 07/14/2016 7:46 AM 017 8:01 (specimen) CDT AM CDT Santosh Spears MD LAB - BLOOD BANK TEST ORDER Performing Organization Address City/[facility]/ZIP [facility] Phon e Number M [facility] [address] [place], [place] [address] [facility] [address] [place], [place] [address] 7, [facility] [phone] Rho (D) immune globulin (RhoGam) Lab Study (07/14/2016 7:36 AM CDT) [facility] Method Time Signature Rhogam Order Order received [place] See Rhogam Study/[facility] Specimen Anatomical Collection Method Collection Time Receive d Time (Source) Location / / Volume Laterality 07/14/2016 7:36 AM 7 7:45 CDT AM CDT Santosh Spears MD LAB - BLOOD BANK PRODUCT ORD ER Performing Organization Address [facility] Phon e Number M [facility] [address] [place], [place] [address] [facility] [address] [place], [place] [address] 7, [facility] [phone] (ABNORMAL) HCG QUANTitative (07/14/2016 5:28 AM CDT) [facility] Method Time Signature HCG Quantitative 19,512 0 - 5 [place] Serum (H) IU/L [facility] Specimen Anatomical Collection Method Collection Time Receive d Time (Source) Location / / Volume Laterality Blood specimen 07/14/2016 5:28 AM 017 7:59 (specimen) CDT AM CDT Santosh Spears MD LAB - BLOOD ORDERABLES Performing Organization Address [facility]/ZIP [facility] Phon e Number M [facility] [address] [place], [place] [address] [facility] [address] [place], [place] [address] 7, [facility] [phone] CBC with platelets differential (07/14/2016 5:28 AM CDT) [facility] gist Method Time Signature WBC 7.9 4.0 - [place] 11.[address] RBC Count 4.00 3.8 - 5.2 [place] 10e12L [facility] Hemoglobin 12.6 11.7 - [place] 15.7 g/dL [facility] Hematocrit 37.4 35.0 - [place] 47.0 % [facility] MCV 94 78 - 100 [facility] MCH 31.5 26.5 - [place] 33.0 pg [facility] MCHC 33.7 31.5 - [place] 36.5 g/dL [facility] RDW 13.3 10.0 - [place] 15.0 % [facility] Platelet Count 230 150 - [address] Diff Method Automated [facility] % Neutrophils 42.2 % [facility] % Lymphocytes 48.0 % [facility] % Monocytes 6.4 % [facility] % Eosinophils 2.5 % [facility] % Basophils 0.6 % [facility] % Immature 0.3 % [place] Granulocytes [facility] Nucleated RBCs 0 0 /100 [facility] Absolute 3.3 1.6 - 8.3 [place] Neutrophil [address] [place] [address] Absolute 3.8 0.8 - 5.3 [place] Lymphocytes [address] [place] [address] Absolute 0.5 0.0 - 1.[address] [place] Monocytes [address] [place] [address] Absolute 0.2 0.0 - 0.7 [place] Eosinophils [address] [place] [address] Absolute 0.1 0.0 - 0.2 [place] Basophils [address] [place] [address] Abs Immature 0.0 0 - 0.4 [place] Granulocytes [address] [place] [address] Absolute 0.0 [place] Nucleated RBC [facility] Specimen Anatomical Collection Method Collection Time Receive d Time (Source) Location / / Volume Laterality Blood specimen 07/14/2016 5:28 AM 017 7:59 (specimen) CDT AM CDT Santosh Spears MD LAB - BLOOD ORDERABLES Performing Organization Address City/State/ZIP Code Phon e Number M [facility] [address] [place], [place] [address] [facility] [address] [place], [place] [address] [place] [address] documented in this encounter Visit Diagnoses Diagnosis [...] HOUR PRN, l ine flush, Starting on 5/28/17 at 0735, for peripheral IV flush post [...] meds documented in this encounter Care Teams Senior Bookkeeper Relationship Specialty Start Date End Date Clinic, [facility] PCP - General 07/14/16 12/06/[address] [place] [address] documented as of this encounter
--- OUTSIDE RECORDS SUMMARY | 2021-12-13 12:41 | XMS_ITS | Encounter Summary ---
:1980 Author Organization [employer] Address [address] [facility] [place] [address] Care Team Providers Name Role Phone System, Provider Not In Primary Care Provider Unavailable Reason for Visit Reason Onset Date Comments Recheck Medication Erroneous encounter-disregard 09/29/2015 Encounter Details Date Type Department Care Team Description 09/25/2015 Office Visit [facility] Edgar Alfredo ERRONEOUS Clinic Ashly Gauthier MD ENCOUNTER--DISREGARD [address] [place] (Primary Dx) [address] [place] [address] Social History Tobacco Use Types Packs/Day Years Used Date Smoking Tobacco: Every Day Cigarettes 0.1 10 Smokeless Tobacco: Never Comments: 5 cigarettes a day Alcohol Use Standard Drinks/Week Comments No 0 (1 standard drink = 0.6 oz pure alcoho l) Sex Assigned at Date Recorded Female 01/14/2020 10:57 AM GRILL COOK documented as of this encounter Progress Notes Edgar Alfredo MD - 09/29/2015 10:42 AM CDT This encounter was opened in error. Please disregard. documented in this encounter Plan of Treatment Upcoming Encounters Date Type Specialty Care Team Description 12/20/2021 Office Visit Wound Care Luis Camara, [place] [address] [place], [place] [phone] (Wo rk) 01/21/2022 PRE VISIT Gastroenterology Landon Warren, *-*WANDAIN G RECORDS*-* MD Luis Fernando [address] [phone] (Wo rk) 01/21/2022 Office Visit Gastroenterology Juanis Levi [address] [place] [phone] Luis Fernando Miles MD [address] [phone] documented as of this encounter Visit Diagnoses Diagnosis ERRONEOUS ENCOUNTER--DISREGARD - Primary documented in this encounter Care Teams Polymerization Helper Relationship Specialty Start Date End Date System, Provider Not In PCP - General Clinic 08/12/14 07/13/16 documented as of this encounter
--- OUTSIDE RECORDS SUMMARY | 2021-12-13 12:41 | XMS_ITS | Encounter Summary ---
:1980 Author Organization [place] Address [address] [place] [address] Care Team Providers Name Role Phone [facility] Primary Care Provide r Luis Fernando Magana Primary Care Provider [facility] Primary Care Provide r Tatyana Haas TILE AND MARBLE INSTALLER LOBBYIST Unavailable [phone] Stephani Pina TILE AND MARBLE INSTALLER LOBBYIST Unavailable [phone] Tatyana Haas TILE AND MARBLE INSTALLER LOBBYIST Unavailable [phone] Stephani Pina TILE AND MARBLE INSTALLER LOBBYIST Unavailable [phone] Juanis Levi Primary Care Provider lEsa Yeh RN Unavailable Unavailable Rogelio Treadwell MD Unavailable [phone] Luis Camara DPM Unavailable [phone] Camryn Christina MD Unavailable Sintia Lange PA-C Unavailable Luis Fernando Miles MD Unavailable [phone] Reason for Referral - Closed Specialty Diagnoses / Procedures Referred By Contact Refer red To Contact Diagnoses related condition, unspecified trimester Nidia Vincent [facility] [address] [place] [address] Referral ID Status Reason Start Date Expiration Date Visits Requ ested Visits Authorized [id number] Closed 07/17/2016 07/17/2017 1 1 Encounter Details Date Type Department Care Team Description 07/17/2016 [facility] Only [facility] Andreishmael Apri l related Maternal [facility] condition, un specified [facility] Center MEDICAL trimester (Primary Dx) [place] [address] [place], [place] [address] [address] [place], [place] [phone] [address] (Work) [phone] Social History Tobacco Use Types Packs/Day Years Used Date Smoking Tobacco: Every Day Cigarettes 0.1 10 Smokeless Tobacco: Never Comments: 5 cigarettes a day Alcohol Use Standard Drinks/Week Comments No 0 (1 standard drink = 0.6 oz pure alcoho l) Sex Assigned at Date Recorded Female 01/14/2020 10:57 AM ORNAMENTAL 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 WORKER HELPER documented as of this encounter Plan of Treatment Upcoming Encounters Date Type Specialty Care Team Description 12/20/2021 Office Visit Wound Care Luis Camara, [place] [address] [place], [place] [address] (Wo rk) 01/21/2022 PRE VISIT Gastroenterology Landon Warren, *-*INCOMIN G RECORDS*-* MD Luis Fernando [address] [place] [phone] (Wo rk) 01/21/2022 Office Visit Gastroenterology Juanis Levi [address] [place] [phone] Luis Fernando Miles MD [address] [place] [phone] Scheduled Referrals Name Type Priority Associated Diagnoses Order S [facility] Referral Routine related Order ed: 07/17/2016 REFERRAL- condition, unspecified trimester documented as of this encounter Visit Diagnoses Diagnosis related condition, unspecified trimester - Primary documented in this encounter Additional Health Concerns Infection Onset Date Last Indicated Resolved Time MRSAComment: Added from external infection. 11/07/201406/18 documented as of this encounter Care Teams Wildlife And Game Protector Relationship Specialty Start Date End Date [facility], [facility] PCP - General 07/14/[address] [address] Luis Fernando Magana PCP - General Family Practice 12/07/16 01/19/[address] [address] [facility] PCP - General 01/20/[address] [address] Juanis Levi PCP - General Addiction Medicine 06/29/[address] [place] [phone] Tatyana Haas, Assigned PCP 08/02/18 01/29/20 TILE AND MARBLE INSTALLER LOBBYIST [facility] [address] [facility] [address] [place] [address] Stephani Pina, Assigned PCP 01/30/20 12/30/20 TILE AND MARBLE INSTALLER LOBBYIST [address] [facility] [address] [place] [address] Tatyana Haas, Assigned PCP 12/31/20 02/24/21 TILE AND MARBLE INSTALLER LOBBYIST [facility] [address] [facility] [address] [place] [address] Stephani Pina, Assigned PCP 02/25/21 TILE AND MARBLE INSTALLER LOBBYIST [address] [place] [address] [place] [address] Elsa Yeh, Registered Nurse Infectious Diseases 07/25/21 Rogelio Wilson Assigned Musculoskeletal 08/04/21 MD August Provider [address] [place], [place] [address] Luis Camara MD Podiatry 08/16/21 [place] Burnett [address] [place], [place] [address] Camryn Christina Assigned Surgical 09/01/21 09/07/21 MD Lexie Provider [address] [facility] [address] [place], [place] [phone] Sintia Lange PA-C Assigned Surgical 09/08/21 [address] [facility] 4TH Provider FLOOR [place], [place] [phone] Landon Warren MD Gastroenterology 11/21/21 MD Luis Fernando [address] [facility] [address] [place], [place] [address] documented as of this encounter
--- OUTSIDE RECORDS SUMMARY | 2021-12-13 12:41 | XMS_ITS | Encounter Summary ---
:1980 Author Organization [place] Address [address] [facility] [place] [address] Care Team Providers Name Role Phone System, Provider Not In Primary Care Provider Unavailable Reason for Visit Reason Onset Date Comments Medication Request 02/05/2016 Bridge for Subutex 2 mg Encounter Details Date Type Department Care Team Description 02/05/[address] [facility] Edgar Alfredo, [facility] ication Request Clinic Ashly VÁSQUEZ (Bridge for Subutex [address] [place] mg ) [address] [place] [phone] (Wo rk) Social History Tobacco Use Types Packs/Day Years Used Date Smoking Tobacco: Every Day Cigarettes 0.1 10 Smokeless Tobacco: Never Comments: 5 cigarettes a day Alcohol Use Standard Drinks/Week Comments No 0 (1 standard drink = 0.6 oz pure alcoho l) Sex Assigned at Date Recorded Female 01/14/2020 10:57 AM EDITOR MAP documented as of this encounter Miscellaneous Notes Telephone Encounter - Edgar Alfredo MD - 02/05/2016 10:02 AM CST Called in bridge Patient notified; left message OR MAP Telephone Encounter - Mark Roldan - 02/05/2016 9:16 AM CST Incoming call from pt she's need a bridge for Subutex 2 mg until her appt on 02/11. Pt can't make her appt for today she has no ride. Pt contact info: [phone] Ok to leave detailed message. Thank you, Mark Roldan Medical Services Coordinator Integrated Primary Care [place] MAP documented in this encounter Plan of Treatment Upcoming Encounters Date Type Specialty Care Team Description 12/20/2021 Office Visit Wound Care Luis Camara, DPCamryn [address] [place], [place] [address] (Wo rk) 01/21/2022 PRE VISIT Gastroenterology Landon Warren, *-*INCOMIN G RECORDS*-* MD Luis Fernando [address] [place] [phone] (Wo rk) 01/21/2022 Office Visit Gastroenterology Juanis Levi [address] [place] [phone] Luis Fernando Miles MD [address] [place] [phone] documented as of this encounter Visit Diagnoses Diagnosis Uncomplicated opioid dependence (H) - Pr imary Opioid type dependence, unspecified documented in this encounter Care Teams Helper Marble Finisher Relationship Specialty Start Date End Date System, Provider Not In PCP - General Clinic 08/12/14 07/13/16 documented as of this encounter
--- OUTSIDE RECORDS SUMMARY | 2021-12-13 12:41 | XMS_ITS | Encounter Summary ---
:1980 Author Organization [place] Address [address] [facility] [place] [address] Care Team Providers Name Role Phone System, Provider Not In Primary Care Provider Unavailable Reason for Visit Reason Onset Date Comments Refill Request 10/17/2015 Subutex 2mg Encounter Details Date Type Department Care Team Description 10/17/2015 Refill [facility] Edgar Alfredo, Ref ill Request (Subutex Clinic [facility] 2mg ) [address] [place] [address] [place] [phone] (Wo rk) Social History [...] # refills: 0 Last Office Visit with [facility], [facility] or [facility] prescribing provider: 09/28/15 Next 5 appointments (look out 90 days) Oct 24, 2015 11:30 AM Return Visit with Edgar Alfredo MD [facility] Primary Care ([facility]) [address] [place] [address] [address] [facility] [address] Thank you, Mark Roldan Lead Systems Architect Integrated Primary Care documented in this encounter Plan of Treatment Upcoming Encounters Date Type Specialty Care Team Description 12/20/2021 Office Visit Wound Care Luis Camara, [place] [address] [place] [address] (Wo rk) 01/21/2022 PRE VISIT Gastroenterology Landon Warren, *-*INCOMIN G RECORDS*-* MD Luis Fernando [address] [place] [phone] (Wo rk) 01/21/2022 Office Visit Gastroenterology Juanis Levi [address] [place] [phone] Luis Fernando Miles MD [address] [place] [phone] documented as of this encounter Visit Diagnoses Diagnosis Uncomplicated opioid dependence (H) - Pr imary Opioid type dependence, unspecified documented in this encounter Care Teams Head Knitting Machine Fixer Relationship Specialty Start Date End Date System, Provider Not In PCP - General Clinic 08/12/14 07/13/16 documented as of this encounter
--- OUTSIDE RECORDS SUMMARY | 2021-12-13 12:41 | XMS_ITS | Encounter Summary ---
:1980 Author Organization [place] Address [address] [facility] [place] [address] Care Team Providers Name Role Phone System, Provider Not In Primary Care Provider Unavailable Reason for Visit Reason Comments Recheck Medication Encounter Details Date Type Department Care Team Description 04/09/2016 Office Visit [facility] Edgar Alfredo Uncomplic ated opioid dependence (H); Clinic Ashly Gauthier MD Major depressive disorder, recurrent epi sode, moderate (H) [address] [place] [phone] Social History Tobacco Use Types Packs/Day Years Used Date Smoking Tobacco: Every Day Cigarettes 0.1 10 Smokeless Tobacco: Never Comments: 5 cigarettes a day Alcohol Use Standard Drinks/Week Comments No 0 (1 standard drink = 0.6 oz pure alcoho l) Sex Assigned at Date Recorded Female 01/14/2020 10:57 AM MANAGER SECURITY AND SAFETY documented as of this encounter Last Filed Vital Signs Vital Sign Reading Time Taken Comments Blood Pressure 133/87 04/09/2016 10:36 AM MANAGER SECURITY AND SAFETY Pulse 87 04/09/2016 10:35 AM MANAGER SECURITY AND SAFETY Temperature 36.8 ??C (98.2 ??F) 04/09/2016 10:35 AM MANAGER SECURITY AND SAFETY Respiratory Rate 20 04/09/2016 10:35 AM MANAGER SECURITY AND SAFETY Oxygen Saturation 94% 04/09/2016 10:35 AM MANAGER SECURITY AND SAFETY Inhaled Oxygen Concentration - - Weight 83 kg (183 lb) 04/09/2016 10:35 AM MANAGER SECURITY AND SAFETY Height - - Body Mass Index 29.99 01/07/2013 11:29 AM MANAGER SECURITY AND SAFETY documented in this encounter Progress Notes Edgar [...] Take 1 tablet by mouth daily ??? Bwiyravi-Aty-Pi-FA ( VITAMINS) 0.8 MG TABS Take 1 [...] less. 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 FOR CARPENTER APPRENTICE USE OF HIGH RISK MEDICATION High Risk [...] in [address] Alfred[address] [facility] GER SECURITY AND SAFETY documented in this encounter Nursing Notes Sabina [...] not appropriate to perform Sabina Mckay CMA GER SECURITY AND SAFETY documented in this encounter Plan of Treatment Upcoming Encounters Date Type Specialty Care Team Description 12/20/2021 Office Visit Wound Care Luis Camara DPM [address] [place], [place] [phone] (Wo rk) 01/21/2022 PRE VISIT Gastroenterology Landon Warren, *-*WANDAIN G RECORDS*-* MD Luis Fernando [address] [place] [phone] (Wo rk) 01/21/2022 Office Visit Gastroenterology Juanis Levi [address] [place] [phone] Luis Fernando Miles MD [address] [place] [address] documented as of this encounter Procedures Procedure Name Priority Date/Time Associated Diagnosis Comme nts HEPATIC FUNCTION Routine 04/09/2016 10:50 Uncomplicated opioid Results for this PANEL AM MANAGER SECURITY AND SAFETY dependence (H) procedure are in the results section. BUPRENORPHINE QUAL Routine 04/09/2016 10:32 Resul ts for this URINE AM MANAGER SECURITY AND SAFETY procedure are i n the results section. DRUG ABUSE SCREEN Routine 04/09/2016 10:32 Uncomplicated opioi d Results for this (NL, RW) AM MANAGER SECURITY AND SAFETY dependence (H) procedure are in the results section. documented in this encounter Results Hepatic panel (04/09/2016 10:50 AM MANAGER SECURITY AND SAFETY) Analysis Performed At Patho logist Time Signature Bilirubin Direct 0.1 0.0 - 0.2 [place] mg/dL [facility] Bilirubin Total 0.4 0.2 - 1.3 [place] mg/dL [facility] Albumin 3.4 3.4 - 5.0 [place] g/dL [facility] Protein Total 7.2 6.8 - 8.8 [place] g/dL [facility] Alkaline 76 40 - 150 [place] Phosphatase U/L [facility] ALT 36 0 - 50 U/L [facility] AST 22 0 - 45 U/L [facility] Specimen Anatomical Collection Method Collection Time Receive d Time (Source) Location / / Volume Laterality Blood specimen 04/09/2016 10:50 7 (specimen) AM MANAGER SECURITY AND SAFETY 10:51 AM MANAGER SECURITY AND SAFETY Edgar Alfredo MD LAB - BLOOD ORDERABLES Performing Organization Address City/State/ZIP Code Phon e Number [facility] [address] [place] [address] Drug abuse screen (NL, RW) (04/09/2016 10:32 AM MANAGER SECURITY AND SAFETY) Component Value Ref Test Analysis Performed Pathologis [...] Urine specimen 04/09/2016 10:32 7 (specimen) AM MANAGER SECURITY AND SAFETY 10:33 AM MANAGER SECURITY AND SAFETY Edgar Alfredo MD LAB - URINE ORDERABLES Performing Organization Address [facility] e Number [address] [facility] Buprenorphine Qual Urine (04/09/2016 10:32 AM MANAGER SECURITY AND SAFETY) [facility] Method Time Signature Buprenorphine Positive [facility] Qual Urine Specimen Anatomical Collection Method Collection Time Receive d Time (Source) Location / / Volume Laterality Urine specimen 04/09/2016 10:32 7 (specimen) AM MANAGER SECURITY AND SAFETY 10:33 AM MANAGER SECURITY AND SAFETY Edgar Alfredo MD LAB - URINE ORDERABLES Performing Organization Address [facility] e Number [address] [facility] documented in this encounter Visit Diagnoses Diagnosis Uncomplicated opioid dependence (H) Opioid type dependence, unspecified Major depressive disorder, recurrent epi sode, moderate (H) Major depressive disorder, recurrent epi sode, moderate documented in this encounter Care Teams Package Checker Relationship Specialty Start Date End Date System, Provider Not In PCP - General Clinic 08/12/14 07/13/16 documented as of this encounter
--- OUTSIDE RECORDS SUMMARY | 2021-12-13 12:41 | XMS_ITS | Encounter Summary ---
:1980 Author Organization [place] Address [address] [facility] [place] [address] Care Team Providers Name Role Phone System, Provider Not In Primary Care Provider Unavailable Reason for Visit Reason Onset Date Comments Medication Request 03/12/2016 Bridge for Subutex Encounter Details Date Type Department Care Team Description 03/12/[address] [facility] Edgar Alfredo, [facility] ication Request Clinic Ashly VSÁQUEZ (Bridge for Subutex ) [address] [place] [address] [place] [phone] (Wo rk) Social History Tobacco Use Types Packs/Day Years Used Date Smoking Tobacco: Every Day Cigarettes 0.1 10 Smokeless Tobacco: Never Comments: 5 cigarettes a day Alcohol Use Standard Drinks/Week Comments No 0 (1 standard drink = 0.6 oz pure alcoho l) Sex Assigned at Date Recorded Female 01/14/2020 10:57 AM LEARNING OPERATIONS SPECIALIST documented as of this encounter Miscellaneous Notes Telephone Encounter - Edgar Alfredo MD - 03/12/2016 12:50 PM CST Bridge ordered NING OPERATIONS SPECIALIST Telephone Encounter - Mark Roldan - 03/12/2016 10:13 AM CST Reason for Call: Bridge for Subutex Detailed comments: pt is requesting a bridge until her next appt on 04/09/16 Phone Number Patient can be reached at: Home number on file [phone] (home) Best Time: anytime Can we leave a detailed message on this number? YES Call taken on 03/12/2016 at 10:13 AM by Mark Roldan Thank you, Mark Roldan Automotive Glass Technician Integrated Primary Care NING OPERATIONS SPECIALIST documented in this encounter Plan of Treatment Upcoming Encounters Date Type Specialty Care Team Description 12/20/2021 Office Visit Wound Care Luis Camara, [place] [address] [place] [address] (Wo rk) 01/21/2022 PRE VISIT Gastroenterology Landon Warren, *-*INCOMIN G RECORDS*-* MD Luis Fernando [address] [place] [phone] (Wo rk) 01/21/2022 Office Visit Gastroenterology Juanis Levi [address] [place] [phone] Luis Fernando Miles MD [address] [place] [address] documented as of this encounter Visit Diagnoses Diagnosis Uncomplicated opioid dependence (H) - Pr imary Opioid type dependence, unspecified documented in this encounter Care Teams Mining Support Worker Relationship Specialty Start Date End Date System, Provider Not In PCP - General Clinic 08/12/14 07/13/16 documented as of this encounter
--- OUTSIDE RECORDS SUMMARY | 2021-12-13 12:41 | XMS_ITS | Encounter Summary ---
:1980 Author Organization [place] Address [address] [place] [address] Care Team Providers Name Role Phone Clinic, [facility] Primary Care Provide r Reason for Visit Reason Onset Date Comments Medication Request 07/16/2016 Encounter Details Date Type Department Care Team Description 07/16/2016 Telephone [facility] Edgar Alfredo Ma rk, Medication Request Ashly VÁSQUEZ [address] [place] [address] [place] [phone] (Wo rk) Social History Tobacco Use Types Packs/Day Years Used Date Smoking Tobacco: Every Day Cigarettes 0.1 10 Smokeless Tobacco: Never Comments: 5 cigarettes a day Alcohol Use Standard Drinks/Week Comments No 0 (1 standard drink = 0.6 oz pure alcoho l) Sex Assigned at Date Recorded Female 01/14/2020 10:57 AM MANAGER GAS documented as of this encounter Miscellaneous Notes Telephone Encounter - Edgar Alfredo MD - 07/17/2016 10:44 AM CDT Advised she can continue to take current Suboxone until next visit Telephone Encounter - Dora Merchant - 07/16/2016 2:10 PM CDT Reason for Call: prescription Detailed comments: Pt would like her suboxone script switched to subutex, because she is . Pharmacy of choice: [facility] - [place], [place] - [address] [facility] Phone Number Patient can be reached at: Home number on file [phone] (home) Best Time: Anytime Can we leave a detailed message on this number? YES Call taken on 07/16/2016 at 2:10 PM by Dora Merchant documented in this encounter Plan of Treatment Upcoming Encounters Date Type Specialty Care Team Description 12/20/2021 Office Visit Wound Care Luis Camara, [place] [address] [place] [address] (Wo rk) 01/21/2022 PRE VISIT Gastroenterology Landon Warren, *-*INCOMIN G RECORDS*-* MD Luis Fernando [address] [place] [phone] (Wo rk) 01/21/2022 Office Visit Gastroenterology Juanis Levi [facility] [place] [phone] Luis Fernando Miles MD [address] [place] [address] documented as of this encounter Visit Diagnoses Not on filedocumented in this encounter Care Teams Supercalender Operator Helper Relationship Specialty Start Date End Date Clinic, [facility] Ed Medical PCP - General 07/14/16 12/06/[address] [place] [address] documented as of this encounter
--- OUTSIDE RECORDS SUMMARY | 2021-12-13 12:41 | XMS_ITS | Encounter Summary ---
:1980 Author Organization [place] Address [facility] [place] [address] Care Team Providers Name Role Phone Clinic, [facility] Primary Care Provide r Encounter Details Date Type Department Care Team Description 07/18/2016 Care Coordination [facility] Anabelle Thomas Maternal Medicine GENARO [place] [address] [address] Social History Tobacco Use Types Packs/Day Years Used Date Smoking Tobacco: Every Day Cigarettes 0.1 10 Smokeless Tobacco: Never Comments: 5 cigarettes a day Alcohol Use Standard Drinks/Week Comments No 0 (1 standard drink = 0.6 oz pure alcoho l) Sex Assigned at Date Recorded Female 01/14/2020 10:57 AM ELECTRONIC PREPRESS SYSTEM OPERATOR documented as of this encounter Plan of Treatment Upcoming Encounters Date Type Specialty Care Team Description 12/20/2021 Office Visit Wound Care Luis Camara DPM [address] [place], [place] [address] (Wo rk) 01/21/2022 PRE VISIT Gastroenterology Landon Warren, *-*HEATHER Barriga RECORDS*-* MD Luis Fernando [address] [phone] (Wo rk) 01/21/2022 Office Visit Gastroenterology Juanis Levi [address] [place] [phone] Luis Fernando Miles MD [address] [place] [address] [address] [place] [address] documented as of this encounter Visit Diagnoses Not on filedocumented in this encounter Care Teams Butter Printer Relationship Specialty Start Date End Date Clinic, [facility] PCP - General 07/14/16 12/06/[address] [place] [address] documented as of this encounter
--- OUTSIDE RECORDS SUMMARY | 2021-12-13 12:41 | XMS_ITS | Encounter Summary ---
:1980 Author Organization [place] Address [address] [facility] [place] [address] Care Team Providers Name Role Phone System, Provider Not In Primary Care Provider Unavailable Reason for Visit Reason Comments Recheck Medication Encounter Details Date Type Department Care Team Description 12/04/[address] 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 Auzdohzi-Bax-Jc-FA ( VITAMINS) 0.8 MG TABS Take 1 tablet by mouth daily 30 tablet 6 ??? [DISCONTINUED] VITAMINS PO Take by mouth. No Known Allergies Labs reviewed in [facility] OBJECTIVE: BP 137/81 mmHg Pulse 76 There [...] visit in 1 MONTH Edgar Alfredo MD [facility] documented in this [...] (85.73 kg). BP completed using cuff size: catalion Mckay MA documented in this encounter Plan of Treatment Upcoming Encounters Date Type Specialty Care Team Description 12/20/2021 Office Visit Wound Care Luis Camara DPM [address] [place], [place] [phone] (Reinaldo rk) 01/21/2022 PRE VISIT Gastroenterology Landon Warren, *-*HEATHER Barriga RECORDS*-* MD Luis Fernando [address] [facility] [address] [place] [address] (Wo rk) 01/21/2022 Office Visit Gastroenterology Juanis Levi [facility] [place] [phone] Luis Fernando Miles MD [address] [place] [address] [address] [place] [address] documented as of this encounter Procedures Procedure [...] Patholo gist Method Time Signature Buprenorphine Positive [place] Qual Urine [facility] Specimen Anatomical Collection Method Collection Time Receive d Time (Source) Location / / Volume Laterality Urine specimen 12/04/2015 11:28 6 (specimen) AM CDT 11:29 AM CDT Edgar Alfredo MD LAB - URINE ORDERABLES Performing Organization Address City/State/ZIP Code Phon e Number [place] [id number] [address] [place] [address] Drug abuse screen (NL, RW) (12/04/2015 11:28 AM CDT) Component Value Ref Test Analysis Performed Pathologis t Range Method Time At Signature Methamphetamine Negative [facility]G [facility] Qual Urine Cutoff for a negative methamphetamine is 1000 ng/mL or le ss. [facility] Cocaine Qual Urine Negative [facility] Cutoff for a negative cocaine is 300 ng/mL or less. [facility] Cannabinoids Qual Negative [facility] Urine Cutoff for a negative cannabinoid is 50 ng/mL or less. [facility] MDMA Qual Urine Negative [facility]G [facility] Cutoff for a negative MDMA (ecstasy) is 500 ng/mL or less. [facility] Methadone Qual Negative [facility]G [facility] Urine Cutoff for a negative methadone is 300 ng/mL or less. [facility] Opiates Negative [facility]G [facility] Qualitative Urine Cutoff for a negative opiate is 300 ng/mL or less. [facility] Benzodiazepine Negative [facility]G [facility] Qual Urine Cutoff for a negative benzodiazepine is 300 ng/mL or less . [facility] Tricyc Anti Qual Negative NEG [facility] Urine Cutoff for a negative tricyclic antidepressant is 1000 ng /mL or less. [facility] Barbiturates Qual Negative [facility]G [facility] Urine Cutoff for a negative barbituate is 300 ng/mL or less. [facility] PCP Qual Urine Negative NEG [facility] Cutoff for a negative PCP is 25 ng/mL or less. [facility] Amphetamine Qual Negative [facility]G [facility] Urine Cutoff for a negative amphetamine is 1000 ng/mL or less. [facility] Oxycodone Qual Negative NEG [facility] Urine Cutoff for a negative Oxycodone is 100 ng/mL or less. [facility] Specimen Anatomical Collection Method Collection Time Receive d Time (Source) Location / / Volume Laterality Urine specimen 12/04/2015 11:28 6 (specimen) AM CDT 11:29 AM CDT Edgar Alfredo MD LAB - URINE ORDERABLES Performing Organization Address City/State/ZIP Code Phon e Number [facility] [address] [place] [address] documented in this encounter Visit Diagnoses Diagnosis Uncomplicated opioid dependence (H) - Pr imary Opioid type dependence, unspecified documented in this encounter Care Teams Customer Service Security Officer Relationship Specialty Start Date End Date System, Provider Not In PCP - General Clinic 08/12/14 07/13/16 documented as of this encounter
--- OUTSIDE RECORDS SUMMARY | 2021-12-13 12:42 | XMS_ITS | Encounter Summary ---
:1980 Author Organization [place] Address [address] [facility] [place] [address] Care Team Providers Name Role Phone System, Provider Not In Primary Care Provider Unavailable Reason for Visit Reason Onset Date Comments Refill Request 08/22/2015 Emergency Appointmen t Needed Today (SUBOXONE) Encounter Details Date Type Department Care Team Description 08/22/2015 Telephone [facility] Edgar Alfredo, Ref ill Request Clinic Ashly VÁSQUEZ (Emergency Appointment [address] [place] Needed Today [phone] (SUBOXONE)) [place] [phone] (Wo rk) Social History Tobacco Use Types Packs/Day Years Used Date Smoking Tobacco: Every Day Cigarettes 0.1 10 Smokeless Tobacco: Never Comments: 5 cigarettes a day Alcohol Use Standard Drinks/Week Comments No 0 (1 standard drink = 0.6 oz pure alcoho l) Sex Assigned at Date Recorded Female 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 Patient will like to be seen today. Staff informed patient call will be routed to and his MA. Patient understood. Lupe Lantigua MA documented in this encounter Plan of Treatment Upcoming Encounters Date Type Specialty Care Team Description 12/20/2021 Office Visit Wound Care Luis Camara DPM [address] [place] [address] (Wo rk) 01/21/2022 PRE VISIT Gastroenterology Landon Warren, *-*INCOMIN G RECORDS*-* MD Luis Fernando 6 [facility] [address] [place], [place] [phone] (Wo rk) 01/21/2022 Office Visit Gastroenterology Juanis Levi [address] [place] [address] Luis Fernando Miles MD [address] [place] [address] [address] [place], [place] [phone] documented as of this encounter Visit Diagnoses Not on filedocumented in this encounter Care Teams Safety Glass Installer Relationship Specialty Start Date End Date System, Provider Not In PCP - General Clinic 08/12/14 07/13/16 documented as of this encounter
--- OUTSIDE RECORDS SUMMARY | 2021-12-13 12:42 | XMS_ITS | Encounter Summary ---
:1980 Author Organization [place] Address [address] [facility] [place] [address] Care Team Providers Name Role Phone System, Provider Not In Primary Care Provider Unavailable Reason for Visit Reason Onset Date Comments Recheck Medication Erroneous encounter-disregard 06/13/2015 Encounter Details Date Type Department Care Team Description 06/12/2015 Office Visit [facility] Edgar Alfredo NO SHOW ( Primary Dx); Clinic Ashly Gauthier MD ERRONEOUS ENCOUNTER--DISREGARD [address] [place] [address] [place] [phone] Social History Tobacco Use Types Packs/Day Years Used Date Smoking Tobacco: Every Day Cigarettes 0.1 10 Smokeless Tobacco: Never Comments: 5 cigarettes a day Alcohol Use Standard Drinks/Week Comments No 0 (1 standard drink = 0.6 oz pure alcoho l) Sex Assigned at Date Recorded Female 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 Please disregard. documented in this encounter Plan of Treatment Upcoming Encounters Date Type Specialty Care Team Description 12/20/2021 Office Visit Wound Care Luis Camara, DPM [address] [place] [address] (Wo rk) 01/21/2022 PRE VISIT Gastroenterology Landon Warren, *-*WANDAIN G RECORDS*-* MD Luis Fernando [address] [place] [address] (Wo rk) 01/21/2022 Office Visit Gastroenterology Juanis Levi [address] [place] [phone] Luis Fernando Miles MD [address] [place] [phone] documented as of this encounter Visit Diagnoses Diagnosis NO SHOW - Primary ERRONEOUS ENCOUNTER--DISREGARD documented in this encounter Care Teams Curriculum Specialist Relationship Specialty Start Date End Date System, Provider Not In PCP - General Clinic 08/12/14 07/13/16 documented as of this encounter
--- OUTSIDE RECORDS SUMMARY | 2021-12-13 12:42 | XMS_ITS | Encounter Summary ---
:1980 Author Organization [place] Address [address] [facility] [place] [address] Care Team Providers Name Role Phone System, Provider Not In Primary Care Provider Unavailable Reason for Visit Reason Onset Date Comments Erroneous encounter-disregard 07/21/2015 Encounter Details Date Type Department Care Team Description 07/21/2015 Telephone [facility] Alfred[facility], [facility] VÁSQUEZ encounter-disregard [address] [place] [address] [place] [phone] (Wo rk) Social History Tobacco Use Types Packs/Day Years Used Date Smoking Tobacco: Every Day Cigarettes 0.1 10 Smokeless Tobacco: Never Comments: 5 cigarettes a day Alcohol Use Standard Drinks/Week Comments No 0 (1 standard drink = 0.6 oz pure alcoho l) Sex Assigned at Date Recorded Female 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 documented in this encounter Plan of Treatment Upcoming Encounters Date Type Specialty Care Team Description 12/20/2021 Office Visit Wound Care Luis Camara, DPCamryn [address] [place] [address] (Wo rk) 01/21/2022 PRE VISIT Gastroenterology Landon Warren, *-*HEATHER G RECORDS*-* MD Luis Fernando [address] [phone] (Wo rk) 01/21/2022 Office Visit Gastroenterology Juanis Levi [address] [place] [phone] Luis Fernando Miles MD [address] [phone] documented as of this encounter Visit Diagnoses Not on filedocumented in this encounter Care Teams Racking Machine Operator Relationship Specialty Start Date End Date System, Provider Not In PCP - General Clinic 08/12/14 07/13/16 documented as of this encounter
--- OUTSIDE RECORDS SUMMARY | 2021-12-13 12:42 | XMS_ITS | Encounter Summary ---
:1980 Author Organization [place] Address [address] [facility] [place] [address] Care Team Providers Name Role Phone System, Provider Not In Primary Care Provider Unavailable Reason for Visit Reason Onset Date Comments Recheck Medication Erroneous encounter-disregard 04/28/2015 Encounter Details Date Type Department Care Team Description 04/24/2015 Office Visit [facility] Edgar Alfredo NO SHOW ( Primary Dx); Clinic Ashly Gauthier MD ERRONEOUS ENCOUNTER--DISREGARD [address] [place] [address] [place] [phone] Social History Tobacco Use Types Packs/Day Years Used Date Smoking Tobacco: Every Day Cigarettes 0.1 10 Smokeless Tobacco: Never Comments: 5 cigarettes a day Alcohol Use Standard Drinks/Week Comments No 0 (1 standard drink = 0.6 oz pure alcoho l) Sex Assigned at Date Recorded Female 01/14/2020 10:57 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 Please disregard. IT REVIEW OFFICER documented in this encounter Plan of Treatment Upcoming Encounters Date Type Specialty Care Team Description 12/20/2021 Office Visit Wound Care Luis Camara, [place] [address] [place], [place] [phone] (Wo rk) 01/21/2022 PRE VISIT Gastroenterology Landon Warren, *-*WANDAIN G RECORDS*-* MD Luis Fernando [address] [place] [address] (Wo rk) 01/21/2022 Office Visit Gastroenterology Juanis Levi [address] [place] [phone] Luis Fernando Miles MD [address] [place] [phone] documented as of this encounter Visit Diagnoses Diagnosis NO SHOW - Primary ERRONEOUS ENCOUNTER--DISREGARD documented in this encounter Care Teams Cryptographic Machine Operator Relationship Specialty Start Date End Date System, Provider Not In PCP - General Clinic 08/12/14 07/13/16 documented as of this encounter
--- OUTSIDE RECORDS SUMMARY | 2021-12-13 12:42 | XMS_ITS | Encounter Summary ---
:1980 Author Organization [place] Address [address] [place] [address] Care Team Providers Name Role Phone System, Provider Not In Primary Care Provider Unavailable Reason for Visit Reason Onset Date Comments Refill Request 08/14/2015 Subutex 8mg Encounter Details Date Type Department Care Team Description 08/14/2015 Telephone [facility] Edgar Alfredo, Ref ill Request (Sub[facility] [place] 8mg) [address] [place] [place] [phone] (Wo rk) Social History Tobacco Use Types Packs/Day Years Used Date Smoking Tobacco: Every Day Cigarettes 0.1 10 Smokeless Tobacco: Never Comments: 5 cigarettes a day Alcohol Use Standard Drinks/Week Comments No 0 (1 standard drink = 0.6 oz pure alcoho l) Sex Assigned at Date Recorded Female 01/14/2020 10:57 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 documented as of this encounter [...] # refills: 0 Last Office Visit with [facility] or [facility] prescribing provider: 06/22/15 Next 5 appointments (look out 90 days) Sep 12, 2015 10:45 AM Return Visit with Edgar Alfredo MD [facility] ([facility]) [address] [facility] [phone] Thank you, Mark Roldan Environmental Technician Integrated Primary Care documented in this encounter Plan of Treatment Upcoming Encounters Date Type Specialty Care Team Description 12/20/2021 Office Visit Wound Care Luis Camara, [place] [address] [place] [address] (Wo rk) 01/21/2022 PRE VISIT Gastroenterology Landon Warren, *-*WANDAIN G RECORDS*-* MD Luis Fernando [address] [facility] [address] [place] [address] (Wo rk) 01/21/2022 Office Visit Gastroenterology Juanis Levi [address] [place] [address] Luis Fernando Miles MD [address] [place] [address] documented as of this encounter Visit Diagnoses Diagnosis Uncomplicated opioid dependence (H) - Pr imary Opioid type dependence, unspecified documented in this encounter Care Teams Credit Administration Officer Relationship Specialty Start Date End Date System, Provider Not In PCP - General Clinic 08/12/14 07/13/16 documented as of this encounter
--- OUTSIDE RECORDS SUMMARY | 2021-12-13 12:42 | XMS_ITS | Encounter Summary ---
:1980 Author Organization [place] Address [address] [facility] [place] [address] Care Team Providers Name Role Phone System, Provider Not In Primary Care Provider Unavailable Reason for Visit Reason Onset Date Comments Recheck Medication Erroneous encounter-disregard 05/23/2015 Encounter Details Date Type Department Care Team Description 05/09/2015 Office Visit [facility] Edgar Alfredo NO SHOW ( Primary Dx); Clinic Ashly Gauthier MD ERRONEOUS ENCOUNTER--DISREGARD [address] [place] [address] [place] [phone] Social History Tobacco Use Types Packs/Day Years Used Date Smoking Tobacco: Every Day Cigarettes 0.1 10 Smokeless Tobacco: Never Comments: 5 cigarettes a day Alcohol Use Standard Drinks/Week Comments No 0 (1 standard drink = 0.6 oz pure alcoho l) Sex Assigned at Date Recorded Female 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 Please disregard. documented in this encounter Plan of Treatment Upcoming Encounters Date Type Specialty Care Team Description 12/20/2021 Office Visit Wound Care Luis Camara, DPM [address] [place] [address] (Wo rk) 01/21/2022 PRE VISIT Gastroenterology Landon Warren, *-*WANDAIN G RECORDS*-* MD Luis Fernando [address] [place] [address] (Wo rk) 01/21/2022 Office Visit Gastroenterology Juanis Levi [address] [place] [phone] Luis Fernando Miles MD [address] [place] [phone] documented as of this encounter Visit Diagnoses Diagnosis NO SHOW - Primary ERRONEOUS ENCOUNTER--DISREGARD documented in this encounter Care Teams Surfacing Machine Operator Relationship Specialty Start Date End Date System, Provider Not In PCP - General Clinic 08/12/14 07/13/16 documented as of this encounter
--- OUTSIDE RECORDS SUMMARY | 2021-12-13 12:42 | XMS_ITS | Encounter Summary ---
:1980 Author Organization [place] Address [address] [place] [address] Care Team Providers Name Role Phone System, Provider Not In Primary Care Provider Unavailable Reason for Visit Reason Onset Date Comments Recheck Medication Erroneous encounter-disregard 05/23/2015 Encounter Details Date Type Department Care Team Description 05/17/2015 Office Visit [facility] Edgar Alfredo dep ressive disorder, recurrent episode, moderate (H) (Primary Dx); Clinic Ashly Gauthier MD Uncomplicated opioid dependence (H); [address] ERRONEOUS ENCOUNTER--DISREGA [address] [address] [place] [phone] Social History Tobacco Use Types Packs/Day Years Used Date Smoking Tobacco: Every Day Cigarettes 0.1 10 Smokeless Tobacco: Never Comments: 5 cigarettes a day Alcohol Use Standard Drinks/Week Comments No 0 (1 standard drink = 0.6 oz pure alcoho l) Sex Assigned at Date Recorded Female 01/14/2020 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 documented as of this encounter Last [...] Visit Wound Care Luis Camara, [place] [address] [place], [place] [phone] (Wo rk) 01/21/2022 PRE VISIT Gastroenterology Landon Warren, *-*INCOMIN G RECORDS*-* MD Luis Fernando [address] [place] [phone] (Wo rk) 01/21/2022 Office Visit Gastroenterology Juanis Levi [address] [place] [phone] Luis Fernando Miles MD [address] [place] [address] [phone] documented as of this encounter Procedures Procedure [...] Organization Address City/State/[place] [address] [facility] Building [address] LAB Drug abuse screen (NL, RW) (05/17/2015 [...] [facility] [place] [address] [facility] [address] [place] LAB documented in this encounter Visit Diagnoses Diagnosis Major depressive disorder, recurrent epi sode, moderate (H) - Primary Major depressive disorder, recurrent epi sode, moderate Uncomplicated opioid dependence (H) Opioid type dependence, unspecified ERRONEOUS ENCOUNTER--DISREGARD documented in this encounter Care Teams Heel Blacker Relationship Specialty Start Date End Date System, Provider Not In PCP - General Clinic 08/12/14 07/13/16 documented as of this encounter
--- OUTSIDE RECORDS SUMMARY | 2021-12-13 12:42 | XMS_ITS | Encounter Summary ---
:1980 Author Organization [place] Address [address] [facility] [place] [address] Care Team Providers Name Role Phone System, Provider Not In Primary Care Provider Unavailable Reason for Visit Reason Onset Date Comments Prior Auth - Medication 08/24/2015 subutex 2 mg tab Encounter Details Date Type Department Care Team Description 08/24/2015 Telephone [facility] Edgar Alfredo Pri or Auth - Medication Clinic Ashly VÁSQUEZ (subutex 2 mg tab) [address] [place] [address] [place] [phone] (Wo rk) Social History Tobacco Use Types Packs/Day Years Used Date Smoking Tobacco: Every Day Cigarettes 0.1 10 Smokeless Tobacco: Never Comments: 5 cigarettes a day Alcohol Use Standard Drinks/Week Comments No 0 (1 standard drink = 0.6 oz pure alcoho l) Sex Assigned at Date Recorded Female 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 faxed to pharmacy Telephone Encounter - Suyapa Rodriguez CMA - 08/24/2015 4:01 PM CDT PA request faxed to [facility], marked URGENT documented in this encounter Plan of Treatment Upcoming Encounters Date Type Specialty Care Team Description 12/20/2021 Office Visit Wound Care Luis Camara, [place] [address] [place] [address] (Wo rk) 01/21/2022 PRE VISIT Gastroenterology Landon Warren, *-*HEATHER G RECORDS*-* MD Luis Fernando [address] [place] [phone] (Wo rk) 01/21/2022 Office Visit Gastroenterology Juanis Levi [address] [place] [phone] Luis Fernando Miles MD [address] [place] [address] [phone] documented as of this encounter Visit Diagnoses Not on filedocumented in this encounter Care Teams Basin Cleaner Relationship Specialty Start Date End Date System, Provider Not In PCP - General Clinic 08/12/14 07/13/16 documented as of this encounter
--- OUTSIDE RECORDS SUMMARY | 2021-12-13 12:42 | XMS_ITS | Encounter Summary ---
:1980 Author Organization [place] Address [address] [facility] [place] [address] Care Team Providers Name Role Phone System, Provider Not In Primary Care Provider Unavailable Reason for Visit Reason Comments Recheck Medication Encounter Details Date Type Department Care Team Description 06/22/2015 Office Visit [facility] Edgar Alfredo Uncomplic ated opioid Clinic Ashly Gauthier MD dependence (H) (Primary [address] Dx) [address] [place] [phone] Social History Tobacco Use Types Packs/Day Years Used Date Smoking Tobacco: Every Day Cigarettes 0.1 10 Smokeless Tobacco: Never Comments: 5 cigarettes a day Alcohol Use Standard Drinks/Week Comments No 0 (1 standard drink = 0.6 oz pure alcoho l) Sex Assigned at Date Recorded Female 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 Iadeghkj-Lis-Qo-FA ( VITAMINS) 0.8 MG TABS Take 1 [...] visit in 1 MONTH Edgar Alfredo MD [facility] [...] Visit Wound Care Luis Camara DPM [address] [place] [address] (Wo rk) 01/21/2022 PRE VISIT Gastroenterology Landon Warren, *-*HEATHER G RECORDS*-* MD Luis Fernando [address] [facility] [address] [place] [address] (Wo rk) 01/21/2022 Office Visit Gastroenterology Juanis Levi [address] [place] [phone] Luis Fernando Miles MD [address] [facility] [address] [place], [place] [phone] documented as of this encounter Procedures Procedure [...] Organization Address City/State/[place] [address] [facility] Building [address] [facility] [address] [place] LAB Drug abuse [...] LAB - URINE ORDERABLES Performing Organization Address City/State/[facility] [place] [address] [facility] [address] [place] LAB documented in this encounter Visit Diagnoses Diagnosis Uncomplicated opioid dependence (H) - Pr imary Opioid type dependence, unspecified documented in this encounter Care Teams Production Line Solderer Relationship Specialty Start Date End Date System, Provider Not In PCP - General Clinic 08/12/14 07/13/16 documented as of this encounter
--- OUTSIDE RECORDS SUMMARY | 2021-12-13 12:42 | XMS_ITS | Encounter Summary ---
:1980 Author Organization [place] Address [address] [facility] [place] [address] Care Team Providers Name Role Phone System, Provider Not In Primary Care Provider Unavailable Reason for Visit Reason Onset Date Comments Medication Request 07/19/2015 Encounter Details Date Type Department Care Team Description 07/19/2015 Telephone [facility] Edgar Alfredo[facility] Request Clinic Ashly VÁSQUEZ ([phone]) [address] [place] [address] [place] [phone] (Wo rk) Social History Tobacco Use Types Packs/Day Years Used Date Smoking Tobacco: Every Day Cigarettes 0.1 10 Smokeless Tobacco: Never Comments: 5 cigarettes a day Alcohol Use Standard Drinks/Week Comments No 0 (1 standard drink = 0.6 oz pure alcoho l) Sex Assigned at Date Recorded Female 01/14/2020 10:57 AM 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 Please follow up. Pt contact info: [phone] (Ok to leave detailed message, per pt) Thank you, Dora Merchant Ct Scan Special Procedures Technologist [facility] documented in this encounter Plan of Treatment Upcoming Encounters Date Type Specialty Care Team Description 12/20/2021 Office Visit Wound Care Luis Camara, [place] [address] [place] [address] (Wo rk) 01/21/2022 PRE VISIT Gastroenterology Landon Warren, *-*INCOMIN G RECORDS*-* MD Luis Fernando [address] [place] [phone] (Wo rk) 01/21/2022 Office Visit Gastroenterology Juanis Levi [address] [place] [phone] Luis Fernando Miles MD [address] [place] [phone] documented as of this encounter Visit Diagnoses Diagnosis Uncomplicated opioid dependence (H) - Pr imary Opioid type dependence, unspecified documented in this encounter Care Teams Food Products Tester Relationship Specialty Start Date End Date System, Provider Not In PCP - General Clinic 08/12/14 07/13/16 documented as of this encounter
--- OUTSIDE RECORDS SUMMARY | 2021-12-13 12:42 | XMS_ITS | Encounter Summary ---
:1980 Author Organization [place] Address [address] [facility] [place] [address] Care Team Providers Name Role Phone System, Provider Not In Primary Care Provider Unavailable Reason for Visit Auth/Cert Specialty Diagnoses / Procedures Referred By Contact Refer red To Contact gas pipe layer Diagnoses Supervision of high-risk Rh Labor And Delive ry [address] [place], [place] [address] Phone: Fax: Referral ID Status Reason Start Date Expiration Date Visits Requ ested Visits Authorized [id number] 1 1 Encounter Details Date Type Department Care Team Description 07/21/2015 Hospital Encounter [facility] Deirdre Gallardo, Birthplace [address] [facility] [place], [place] [address] [facility] [address] [facility] [address] [place] [address] (Wo rk) Social History Tobacco Use Types Packs/Day Years Used Date Smoking Tobacco: Every Day Cigarettes 0.1 10 Smokeless Tobacco: Never Comments: 5 cigarettes a day Alcohol Use Standard Drinks/Week Comments No 0 (1 standard drink = 0.6 oz pure alcoho l) Sex Assigned at Date Recorded Female 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 You don't have to [...] by 30 tablet 6 12/10/2012 08/30/19 17 [id number] mouth daily ( VITAMINS) 0.8 MG TABSIndications: [...] Dr. Verbalized understanding. Allquestions were answered by insurance underwriter sales. Given footprints and photo card. Pt's family [...] EM#[id number] Name: STEPHANI MCCORMICK MRN: [id number] Account: [id number] : 1980 Delivery Date: 07/21/2015 Document: [id number] Provider Notification - Lisa Trevino RN - [...] RN - 07/21/2015 6:13 PM CDT 07/21/15 6149 Provider Notification Provider Name/Title Dr Trujillo Method [...] Visit Wound Care Luis Camara DPM [address] [place], [place] [phone] (Wo rk) 01/21/2022 PRE VISIT Gastroenterology Landon Warren, *-*HEATHER Barriga RECORDS*-* MD Luis Fernando 6 [facility] [address] [place], [place] [address] (Wo rk) 01/21/2022 Office Visit Gastroenterology Juanis Levi [facility] [place] [address] Luis Fernando Miles MD 6 [facility] [address] [place] [address] Pending Results Name Type Priority Associated Diagnoses [...] CDT) P athologist Signature Cocaine Quant 173 [facility] Comment: Unit: ng/ml Benzoylecgonine Qntu 60,354 [facility] Comment: Unit: ng/ml (Note) Analysis for cocaine and its primary met abolite, benzoylecgonine, is performed by gas chr omatography with mass spectrometry (GC/MS). Results are r eported to the limit of quantitation of the assay. Analysis performed by [employer] [place] [address] Specimen Anatomical Collection Method Collection Time Receive d Time (Source) Location / / Volume Laterality 07/21/2015 10:45 07/22/2015 PM CDT 12:20 AM CDT Ray Trujillo MD LAB - URINE ORDERABLES Performing Organization Address City/[facility]/ZIP [facility] Phon e Number [facility] [address] [place], [place] [address] [facility] [address] [place], [place] [address], [facility] [phone] (ABNORMAL) Drug abuse scrn 7 UR (/) (RH, SH, UR) (07/21/2015 10:45 PM CDT) Component Value Ref Test Analysis Performed At [facility] Range Method Time Signature Amphetamine Qual Negative NEG [facility] Urine Cutoff for a negative amphetamine is 500 ng/mL or less. [facility] Cannabinoids Negative NEG [facility] Qual Urine Cutoff for a negative cannabinoid is 50 ng/mL or less. [facility] Cocaine Qual Positive, sent NEG [facility] Urine to Qubole for [facility] (A) Opiates Negative NEG [facility] Qualitative Cutoff for a negative opiate is 300 ng/mL or less. [facility] Pcp Qual Urine Negative [facility] Cutoff for a negative PCP is 25 ng/mL or less. [facility] Specimen Anatomical Collection Method Collection Time Receive d Time (Source) Location / / Volume Laterality Urine specimen URINE SPECIMEN 07/21/2015 10:45 016 (specimen) OBTAINED BY CLEAN PM CDT 11:48 PM C DT CATCH PROCEDURE / Unknown Ray Trujillo MD LAB - URINE ORDERABLES Performing Organization Address City/[facility]/ZIP Code Phon e Number [facility] [address] [place], [place] [address] [facility] [address] [place], [place] [address] [facility] [phone] Surgical Path Exam (07/21/2015 7:36 PM CDT) Component Value Ref Test Analysis Performed At [facility] gist Range Method Time Signature Copath Report Patient Name: STEPHANI KING MR#: [id number] Specimen #: [id number] Collected: 07/21/2015 Received: 07/24/2015 Reported: 07/31/2015 11:48 [...] requested. ??Because of the clinical history, the biomedical equipment support specialist's office was elaine jenkins 07/31/15 at 11:34AM [...] 15 cm long three vessel cord is upholstery instructor d at the abdominal wall. ??The cord [...] only. GROSS MEASUREMENTS: Round-rump length: 17 cm [place]-heel length: 23 cm Head circumference: 16.3 cm [...] identified. No ret roplacental hematoma are identified. ??Paint Specialist sections are submi tted in 3 blocks. MICROSCOPIC: A: No microscopic performed. ??Per clinical request, gross e xternal exam only. B: There are patchy areas of perimembraneous degenerative ch guillermina. ??There is meconium staining. ??The placental villi appear edematous . The placenta shows no evidence of infarction, villitis, or obvio us vasculopathy. CPT Codes: A: 24183-CL, SOH B: 43310-WH1 TESTING LAB LOCATION: [address] ??[id number] COLLECTION SITE: Client: [facility] Location: RHOB (R) Specimen Anatomical Collection [...] dilated cervix at 8 cm. ??Fetus is skilled nursing through the lower uterine segmen t and [...] dilated cervix at 8 cm. Fetus is skilled nursing through the lower uterine segmen t and into the dilated cervical canal. Fetus is in breech prese ntation. Cardiac activity measures 188 beats per minute. VERNON BARRY MD Ray Trujillo MD [facility] US ORDERABLES Blood component (07/21/2015 6:32 PM CDT) [facility] Method Time Signature Unit Number [id number] [facility] Blood Red Blood [facility] Component Cells [facility] Type Leukocyte HOSPITAL Reduced Division 00 [facility] Status of No longer [facility] Unit available [facility] 07/25/2015 HOSPITAL 0300 Blood Product [id number] [facility] Unit Status RET [facility] Specimen Anatomical Collection Method Collection Time Receive d Time (Source) Location / / Volume Laterality 07/21/2015 6:32 PM 6 6:42 CDT PM CDT Ray Trujillo MD LABORATORY Performing Organization Address City/State/ZIP Code Phon e Number [facility] [address] [place], [place] [address] [facility] [address] [place], [place] [address] [place] [address] HIV Antigen Antibody Combo (07/21/2015 6:32 PM CDT) [facility] Method Time Signature HIV Antigen Nonreactive NR [facility] Antibody HIV-1 p24 Ag & HIV-1/HIV-2 Ab Not Detected [facility] MEDICAL Combo [facility] Specimen Anatomical Collection Method Collection Time Receive d Time (Source) Location / / Volume Laterality Blood specimen 07/21/2015 6:32 PM 016 6:42 (specimen) CDT PM CDT Ray Trujillo MD LAB - BLOOD ORDERABLES Performing Organization Address City/State/ZIP Code Phon e Number [facility] [address] [place] [address] [facility] Anti Treponema (07/21/2015 6:32 PM CDT) Analysis Performed At [facility] logist Time Signature Treponema Negative NEG [facility] MEDICAL Antibody [facility] [place] Specimen Anatomical Collection Method Collection Time Receive d Time (Source) Location / / Volume Laterality Blood specimen 07/21/2015 6:32 PM 016 6:42 (specimen) CDT PM CDT Ray Trujillo MD LAB - BLOOD ORDERABLES Performing Organization Address City/State/ZIP Code Phon e Number [facility] [address] [place] [address] [place] Rubella Antibody IgG Quantitative (07/21/2015 6:32 PM CDT) Analysis Performed At Patho logist Time Signature Rubella Antibody 7 IU/mL [facility] IgG [facility] Comment: Negative Reference Range: ?? Unvaccinated Negative 0-7 IU/mL Vaccinated or previous exposure Positiv e 10 IU/ml or greater Specimen Anatomical Collection Method Collection Time Receive d Time (Source) Location / / Volume Laterality Blood specimen 07/21/2015 6:32 PM 016 6:42 (specimen) CDT PM CDT Ray Trujillo MD LAB - BLOOD ORDERABLES Performing Organization Address City/State/ZIP Code Phon e Number [facility] [address] [place] [address] [place] (ABNORMAL) Hemoglobin (07/21/2015 6:32 PM CDT) P athologist Signature Hemoglobin 10.7 (L) 11.7 - 15.7 [facility] g/dL [facility] Specimen Anatomical Collection Method Collection Time Receive d Time (Source) Location / / Volume Laterality Blood specimen 07/21/2015 6:32 PM 016 6:42 (specimen) CDT PM CDT Ray Trujillo MD LAB - BLOOD ORDERABLES Performing Organization Address City/State/ZIP Code Phon e Number [facility] [address] [place] [address] [facility] [address] [phone] ABO/Rh type and screen (07/21/2015 6:32 PM CDT) Patholo gist Method Time Signature Units Ordered 1 [facility] ABO B [facility] RH(D) Pos [facility] Antibody Neg [facility] Screen [facility] Test Valid [facility] Only At [facility] Specimen 07/24/2015 [facility] Expires [facility] Specimen Anatomical Collection Method Collection Time Receive d Time (Source) Location / / Volume Laterality Blood specimen 07/21/2015 6:32 PM 016 6:42 (specimen) CDT PM CDT Ray Trujillo MD LAB - BLOOD BANK TEST ORDER Performing Organization Address City/State/ZIP Code Phon e Number [facility] [address] [place], [place] [address] [facility] [address] [place], [place] [address] [facility] [phone] documented in this encounter Visit Diagnoses Diagnosis [...] bolus documented in this encounter Care Teams Fire Controlman Relationship Specialty Start Date End Date System, Provider Not In PCP - General Clinic 08/12/14 07/13/16 documented as of this encounter
--- OUTSIDE RECORDS SUMMARY | 2021-12-13 12:42 | XMS_ITS | Encounter Summary ---
:1980 Author Organization [place] Address [address] [facility] [place] [address] Care Team Providers Name Role Phone System, Provider Not In Primary Care Provider Unavailable Reason for Visit Reason Onset Date Comments Erroneous encounter-disregard 08/18/2015 Encounter Details Date Type Department Care Team Description 08/18/2015 Office Visit [facility] Edgar Alfredo NO SHOW ( Primary Dx); Clinic Ashly Gauthier MD ERRONEOUS ENCOUNTER--DISREGARD [address] [place] [address] [place] [address] Social History Tobacco Use Types Packs/Day Years Used Date Smoking Tobacco: Every Day Cigarettes 0.1 10 Smokeless Tobacco: Never Comments: 5 cigarettes a day Alcohol Use Standard Drinks/Week Comments No 0 (1 standard drink = 0.6 oz pure alcoho l) Sex Assigned at Date Recorded Female 01/14/2020 10:57 AM KEYPUNCHER documented as of this encounter Progress Notes Edgar Alfredo MD - 08/18/2015 10:30 PM CDT This encounter was opened in error. Please disregard. documented in this encounter Plan of Treatment Upcoming Encounters Date Type Specialty Care Team Description 12/20/2021 Office Visit Wound Care Luis Camara, [place] [address] [place], [place] [phone] (Wo rk) 01/21/2022 PRE VISIT Gastroenterology Landon Warren, *-*WANDAIN G RECORDS*-* MD Luis Fernando [address] [address] (Wo rk) 01/21/2022 Office Visit Gastroenterology Juanis Levi [address] [place] [phone] Luis Fernando Miles MD [address] [phone] documented as of this encounter Visit Diagnoses Diagnosis NO SHOW - Primary ERRONEOUS ENCOUNTER--DISREGARD documented in this encounter Care Teams Metal Sash Setter Relationship Specialty Start Date End Date System, Provider Not In PCP - General Clinic 08/12/14 07/13/16 documented as of this encounter
--- OUTSIDE RECORDS SUMMARY | 2021-12-13 12:42 | XMS_ITS | Encounter Summary ---
:1980 Author Organization [place] Address [address] [place] [address] Care Team Providers Name Role Phone System, Provider Not In Primary Care Provider Unavailable Encounter Details Date Type Department Care Team Description 04/24/2015 Telephone [facility] Nithya Alfredo MD [facility] [address] [place] [address] [place], [place] [address] [address] [place] [phone] Social History Tobacco Use Types Packs/Day Years Used Date Smoking Tobacco: Every Day Cigarettes 0.1 10 Smokeless Tobacco: Never Comments: 5 cigarettes a day Alcohol Use Standard Drinks/Week Comments No 0 (1 standard drink = 0.6 oz pure alcoho l) Sex Assigned at Date Recorded Female 01/14/2020 10:57 AM 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 documented as of this encounter Miscellaneous Notes Addendum Note - Suyapa Murray CMA - 04/24/2015 1:41 PM 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 Addended by: SUYAPA MURRAY on: 04/24/2015 01:41 PM Modules accepted: Medications CLAVE OPERATOR Telephone Encounter - Edgar Alfredo MD - 04/24/2015 12:31 PM CST Bridge ordered CLAVE OPERATOR Telephone Encounter - Vivian Spence CMA - 04/24/2015 12:19 PM CST Incoming call from pt requesting a bridge in Subutex pt scheduled 04/30 please send refill to [address] Vivian Spence, [facility] Filler Picker .3s CLAVE OPERATOR documented in this encounter Plan of Treatment Upcoming Encounters Date Type Specialty Care Team Description 12/20/2021 Office Visit Wound Care Luis Camara, DPM [address] [place], [place] [phone] (Wo rk) 01/21/2022 PRE VISIT Gastroenterology Landon Warren, *-*INCOMIN G RECORDS*-* MD Luis Fernando [address] [place] [phone] (Wo rk) 01/21/2022 Office Visit Gastroenterology Juanis Levi [address] [place] [address] Luis Fernando Miles MD [address] [place] [phone] documented as of this encounter Visit Diagnoses Diagnosis Uncomplicated opioid dependence (H) - Pr imary Opioid type dependence, unspecified documented in this encounter Care Teams Catering Operations Manager Relationship Specialty Start Date End Date System, Provider Not In PCP - General Clinic 08/12/14 07/13/16 documented as of this encounter
--- OUTSIDE RECORDS SUMMARY | 2021-12-13 12:42 | XMS_ITS | Encounter Summary ---
:1980 Author Organization [place] Address [address] [facility] [address] Care Team Providers Name Role Phone System, Provider Not In Primary Care Provider Unavailable Reason for Visit Reason Onset Date Comments Medication Request 07/18/2015 Suboxone Encounter Details Date Type Department Care Team Description 07/18/2015 Telephone [facility] System, Provider Not Me dication Request Clinic [place] (Suboxone) [address] [place] [address] Social History Tobacco Use Types Packs/Day Years Used Date Smoking Tobacco: Every Day Cigarettes 0.1 10 Smokeless Tobacco: Never Comments: 5 cigarettes a day Alcohol Use Standard Drinks/Week Comments No 0 (1 standard drink = 0.6 oz pure alcoho l) Sex Assigned at Date Recorded Female 01/14/2020 10:57 AM RECORD 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 Please follow up contact info: [phone] Ok to leave detail message Mark Roldan [facility] documented in this encounter Plan of Treatment Upcoming Encounters Date Type Specialty Care Team Description 12/20/2021 Office Visit Wound Care Luis Camara, [place] [address] [place] [address] (Wo rk) 01/21/2022 PRE VISIT Gastroenterology Landon Warren, *-*INCOMIN G RECORDS*-* MD Luis Fernando [address] [place] [phone] (Wo rk) 01/21/2022 Office Visit Gastroenterology Juanis Levi [address] [place] [phone] Luis Fernando Miles MD [address] [place] [phone] documented as of this encounter Visit Diagnoses Diagnosis Uncomplicated opioid dependence (H) - Pr imary Opioid type dependence, unspecified documented in this encounter Care Teams English Professor Relationship Specialty Start Date End Date System, Provider Not In PCP - General Clinic 08/12/14 07/13/16 documented as of this encounter
--- OUTSIDE RECORDS SUMMARY | 2021-12-13 12:42 | XMS_ITS | Encounter Summary ---
:1980 Author Organization [place] Address [address] [facility] [place] [address] Care Team Providers Name Role Phone System, Provider Not In Primary Care Provider Unavailable Reason for Visit Reason Comments No Show Encounter Details Date Type Department Care Team Description 07/18/2015 Office Visit [facility] Edgar Alfredo NO SHOW ( Primary Dx) Clinic Ashly Gauthier MD [address] [place] [address] [place] [address] Social History Tobacco Use Types Packs/Day Years Used Date Smoking Tobacco: Every Day Cigarettes 0.1 10 Smokeless Tobacco: Never Comments: 5 cigarettes a day Alcohol Use Standard Drinks/Week Comments No 0 (1 standard drink = 0.6 oz pure alcoho l) Sex Assigned at Date Recorded Female 01/14/2020 10:57 AM HR CONSULTANT documented as of this encounter Progress Notes Edgar Alfredo MD - 07/21/2015 12:51 PM CDT This encounter was opened in error. Please disregard. documented in this encounter Plan of Treatment Upcoming Encounters Date Type Specialty Care Team Description 12/20/2021 Office Visit Wound Care Luis Camara DPM [address] [place] [address] (Wo rk) 01/21/2022 PRE VISIT Gastroenterology Landon Warren, *-*WANDAIN G RECORDS*-* MD Luis Fernando [address] [place] [phone] (Wo rk) 01/21/2022 Office Visit Gastroenterology Juanis Levi [address] [place] [phone] Luis Fernando Miles MD [address] [place] [phone] documented as of this encounter Visit Diagnoses Diagnosis NO SHOW - Primary documented in this encounter Care Teams Aurist Relationship Specialty Start Date End Date System, Provider Not In PCP - General Clinic 08/12/14 07/13/16 documented as of this encounter
--- OUTSIDE RECORDS SUMMARY | 2021-12-13 12:42 | XMS_ITS | Encounter Summary ---
:1980 Author Organization [place] Address [address] [facility] [place] [address] Care Team Providers Name Role Phone System, Provider Not In Primary Care Provider Unavailable Reason for Visit Reason Onset Date Comments Prior Auth - Medication 05/17/2015 subutex 8 mg Encounter Details Date Type Department Care Team Description 05/17/2015 Telephone [facility] Edgar Alfredo Pri or Auth - Medication Clinic Ashly VÁSQUEZ (subutex 8 mg) [address] [place] [address] [place] [phone] (Wo rk) Social History Tobacco Use Types Packs/Day Years Used Date Smoking Tobacco: Every Day Cigarettes 0.1 10 Smokeless Tobacco: Never Comments: 5 cigarettes a day Alcohol Use Standard Drinks/Week Comments No 0 (1 standard drink = 0.6 oz pure alcoho l) Sex Assigned at Date Recorded Female 01/14/2020 10: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 Faxed to pharmacy. Telephone [...] PM CDT PA request faxed to [facility], marked URGENT. documented in this encounter Plan of Treatment Upcoming Encounters Date Type Specialty Care Team Description 12/20/2021 Office Visit Wound Care Luis Camara DPM [address] [place], [place] [phone] (Wo rk) 01/21/2022 PRE VISIT Gastroenterology Landon Warren, *-*WANDAIN G RECORDS*-* MD Luis Fernando [address] [place] [phone] (Wo rk) 01/21/2022 Office Visit Gastroenterology Juanis Levi [address] [place] [phone] Luis Fernando Miles MD [address] [place] [phone] documented as of this encounter Visit Diagnoses Diagnosis Uncomplicated opioid dependence (H) - Pr imary Opioid type dependence, unspecified documented in this encounter Care Teams Parts Administrator Relationship Specialty Start Date End Date System, Provider Not In PCP - General Clinic 08/12/14 07/13/16 documented as of this encounter
--- OUTSIDE RECORDS SUMMARY | 2021-12-13 12:42 | XMS_ITS | Encounter Summary ---
:1980 Author Organization [place] Address [address] [facility] [place] [address] Care Team Providers Name Role Phone System, Provider Not In Primary Care Provider Unavailable Reason for Visit Reason Onset Date Comments No Show Erroneous encounter-disregard 08/21/2015 Encounter Details Date Type Department Care Team Description 08/14/2015 Office Visit [facility] Edgar Alfredo NO SHOW ( Primary Dx); Clinic Ashly Gauthier MD ERRONEOUS ENCOUNTER--DISREGARD [address] [place] [address] [place] [phone] Social History Tobacco Use Types Packs/Day Years Used Date Smoking Tobacco: Every Day Cigarettes 0.1 10 Smokeless Tobacco: Never Comments: 5 cigarettes a day Alcohol Use Standard Drinks/Week Comments No 0 (1 standard drink = 0.6 oz pure alcoho l) Sex Assigned at Date Recorded Female 01/14/2020 10:57 AM LEATHER STRIPPING 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 Please disregard. documented in this encounter Plan of Treatment Upcoming Encounters Date Type Specialty Care Team Description 12/20/2021 Office Visit Wound Care Luis Camara, [place] [address] [place], [place] [phone] (Wo rk) 01/21/2022 PRE VISIT Gastroenterology Landon Warren, *-*INCOMIN G RECORDS*-* MD Luis Fernando [address] [place] [address] (Wo rk) 01/21/2022 Office Visit Gastroenterology Juanis Levi [address] [place] [phone] Luis Fernando Miles MD [address] [place] [phone] documented as of this encounter Visit Diagnoses Diagnosis NO SHOW - Primary ERRONEOUS ENCOUNTER--DISREGARD documented in this encounter Care Teams Ticket Dispenser Changer Relationship Specialty Start Date End Date System, Provider Not In PCP - General Clinic 08/12/14 07/13/16 documented as of this encounter
--- OUTSIDE RECORDS SUMMARY | 2021-12-13 12:42 | XMS_ITS | Encounter Summary ---
:1980 Author Organization [place] Address [address] [facility] [place] [address] Care Team Providers Name Role Phone System, Provider Not In Primary Care Provider Unavailable Reason for Visit Reason Onset Date Comments Medication Request 08/09/2015 Subutex Encounter Details Date Type Department Care Team Description 08/09/2015 Telephone [facility] Edgar Alfredo, [facility] ication Request Clinic Ashly VÁSQUEZ (Subutex) [address] [place] [address] [place] [phone] (Wo rk) Social History Tobacco Use Types Packs/Day Years Used Date Smoking Tobacco: Every Day Cigarettes 0.1 10 Smokeless Tobacco: Never Comments: 5 cigarettes a day Alcohol Use Standard Drinks/Week Comments No 0 (1 standard drink = 0.6 oz pure alcoho l) Sex Assigned at Date Recorded Female 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 YES Call taken on 08/09/2015 at 2:08 PM by Mark Roldan Thank you, Mark Roldan [facility] documented in this encounter Plan of Treatment Upcoming Encounters Date Type Specialty Care Team Description 12/20/2021 Office Visit Wound Care Luis Camara, CALVIN [address] [place] [address] (Wo rk) 01/21/2022 PRE VISIT Gastroenterology Landon Warren, *-*INCOMIN G RECORDS*-* MD Luis Fernando [address] [facility] [address] [place], [place] [phone] (Wo rk) 01/21/2022 Office Visit Gastroenterology Juanis Levi [address] [place] [address] Luis Fernando Miles MD [address] [facility] [address] [place], [place] [address] documented as of this encounter Visit Diagnoses Diagnosis Uncomplicated opioid dependence (H) - Pr imary Opioid type dependence, unspecified documented in this encounter Care Teams Visual Journalist Relationship Specialty Start Date End Date System, Provider Not In PCP - General Clinic 08/12/14 07/13/16 documented as of this encounter
--- OUTSIDE RECORDS SUMMARY | 2021-12-13 12:42 | XMS_ITS | Encounter Summary ---
:1980 Author Organization [place] Address [address] [facility] [place] [address] Care Team Providers Name Role Phone System, Provider Not In Primary Care Provider Unavailable Reason for Visit Reason Onset Date Comments Medication Question 06/14/2015 Subx Bridge Encounter Details Date Type Department Care Team Description 06/14/2015 Telephone [facility] Edgar Alfredo, [facility] ication Question Clinic Ashly VÁSQUEZ (Subx Bridge) [address] [place] [address] [place] [phone] (Wo rk) Social History Tobacco Use Types Packs/Day Years Used Date Smoking Tobacco: Every Day Cigarettes 0.1 10 Smokeless Tobacco: Never Comments: 5 cigarettes a day Alcohol Use Standard Drinks/Week Comments No 0 (1 standard drink = 0.6 oz pure alcoho l) Sex Assigned at Date Recorded Female 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 Please follow up. Pt contact info: [phone] Script can be sent to [facility] Thank you, Dora Merchant [facility] Telephone Encounter - Dora Merchant - 06/14/2015 11:41 AM CDT Incoming call from pt, documented in this encounter Plan of Treatment Upcoming Encounters Date Type Specialty Care Team Description 12/20/2021 Office Visit Wound Care Luis Camara, DPM [address] [place] [address] (Wo rk) 01/21/2022 PRE VISIT Gastroenterology Landon Warren, *-*INCOMIN G RECORDS*-* MD Luis Fernando [address] [place] [address] (Wo rk) 01/21/2022 Office Visit Gastroenterology Juanis Levi [address] [place] [phone] Luis Fernando Miles MD [address] [place] [address] documented as of this encounter Visit Diagnoses Diagnosis Uncomplicated opioid dependence (H) - Pr imary Opioid type dependence, unspecified documented in this encounter Care Teams Hardwood Finisher Relationship Specialty Start Date End Date System, Provider Not In PCP - General Clinic 08/12/14 07/13/16 documented as of this encounter
--- OUTSIDE RECORDS SUMMARY | 2021-12-13 12:42 | XMS_ITS | Encounter Summary ---
:1980 Author Organization [place] Address [address] [facility] [address] Care Team Providers Name Role Phone System, Provider Not In Primary Care Provider Unavailable Reason for Visit Reason Onset Date Comments Recheck Medication Erroneous encounter-disregard 05/07/2015 Encounter Details Date Type Department Care Team Description 05/02/2015 Office Visit [facility] Edgar Alfredo ERRONEOUS Clinic Ashly Gauthier MD ENCOUNTER--DISREGARD [address] [place] (Primary Dx) [address] [place] [phone] Social History Tobacco Use Types Packs/Day Years Used Date Smoking Tobacco: Every Day Cigarettes 0.1 10 Smokeless Tobacco: Never Comments: 5 cigarettes a day Alcohol Use Standard Drinks/Week Comments No 0 (1 standard drink = 0.6 oz pure alcoho l) Sex Assigned at Date Recorded Female 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 Please disregard. documented in this encounter Plan of Treatment Upcoming Encounters Date Type Specialty Care Team Description 12/20/2021 Office Visit Wound Care Luis Camara, PALOMOM [address] [place], [place] [address] (Wo rk) 01/21/2022 PRE VISIT Gastroenterology Landon Warren, *-*INCOMIN G RECORDS*-* MD Luis Fernando [address] [place] [address] (Wo rk) 01/21/2022 Office Visit Gastroenterology Juanis Levi [address] [place] [phone] Luis Fernando Miles MD [address] [phone] documented as of this encounter Visit Diagnoses Diagnosis ERRONEOUS ENCOUNTER--DISREGARD - Primary documented in this encounter Care Teams Patch Finisher Relationship Specialty Start Date End Date System, Provider Not In PCP - General Clinic 08/12/14 07/13/16 documented as of this encounter
--- OUTSIDE RECORDS SUMMARY | 2021-12-13 12:42 | XMS_ITS | Encounter Summary ---
:1980 Author Organization [place] Address [address] [facility] [place] [address] Care Team Providers Name Role Phone System, Provider Not In Primary Care Provider Unavailable Reason for Visit Reason Onset Date Comments Refill Request 06/12/2015 Bridge needed for giraldo bx Encounter Details Date Type Department Care Team Description 06/12/2015 Telephone [facility] Edgar Alfredo, Ref ill Request (Bridge Clinic Yadkin MD needed for subx ) [address] [place] [address] [place] [phone] (Wo rk) Social History Tobacco Use Types Packs/Day Years Used Date Smoking Tobacco: Every Day Cigarettes 0.1 10 Smokeless Tobacco: Never Comments: 5 cigarettes a day Alcohol Use Standard Drinks/Week Comments No 0 (1 standard drink = 0.6 oz pure alcoho l) Sex Assigned at Date Recorded Female 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 Please follow up. Pt contact info: [phone] Thank you, Dora Merchant [facility] documented in this encounter Plan of Treatment Upcoming Encounters Date Type Specialty Care Team Description 12/20/2021 Office Visit Wound Care Luis Camara, [place] [address] [place] [address] (Wo rk) 01/21/2022 PRE VISIT Gastroenterology Landon Warren, *-*INCOMIN G RECORDS*-* MD Luis Fernando [address] [place] [address] (Wo rk) 01/21/2022 Office Visit Gastroenterology Juanis Levi [address] [place] [address] Luis Fernando Miles MD [address] [place] [phone] documented as of this encounter Visit Diagnoses Diagnosis Uncomplicated opioid dependence (H) - Pr imary Opioid type dependence, unspecified documented in this encounter Care Teams Chemical Detection Expert Relationship Specialty Start Date End Date System, Provider Not In PCP - General Clinic 08/12/14 07/13/16 documented as of this encounter
--- OUTSIDE RECORDS SUMMARY | 2021-12-13 12:42 | XMS_ITS | Encounter Summary ---
:1980 Author Organization [place] Address [address] [facility] [place] [address] Care Team Providers Name Role Phone System, Provider Not In Primary Care Provider Unavailable Reason for Visit Reason Comments Recheck Medication Encounter Details Date Type Department Care Team Description 08/24/2015 Office Visit [facility] Edgar Alfredo dep ressive disorder, recurrent episode, moderate (H) (Primary Dx); Clinic Ashly Gauthier MD Uncomplicated opioid dependence (H) [address] [place] [address] [place] [phone] Social History Tobacco Use Types Packs/Day Years Used Date Smoking Tobacco: Every Day Cigarettes 0.1 10 Smokeless Tobacco: Never Comments: 5 cigarettes a day Alcohol Use Standard Drinks/Week Comments No 0 (1 standard drink = 0.6 oz pure alcoho l) Sex Assigned at Date Recorded Female 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 Dvnxtaei-Mlr-Mi-FA ( VITAMINS) 0.8 MG TABS Take 1 [...] visit in 1 MONTH Edgar Alfredo MD [facility] documented in this encounter [...] Visit Wound Care Luis Camara, [place] [address] [place] [address] (Wo rk) 01/21/2022 PRE VISIT Gastroenterology Landon Warren, *-*WANDAIN G RECORDS*-* MD Luis Fernando [address] [phone] (Wo rk) 01/21/2022 Office Visit Gastroenterology Juanis Levi [address] [place] [phone] Luis Fernando Miles MD [address] [address] documented as of this encounter Procedures Procedure [...] Buprenorphine Qual Urine (08/24/2015 2:14 PM CDT) [facility] Method Time Signature Buprenorphine Positive [facility] LAB Qual Urine Specimen Anatomical Collection Method Collection Time Receive d Time (Source) Location / / Volume Laterality Urine specimen 08/24/2015 2:14 PM 016 2:19 (specimen) CDT PM CDT Edgar Alfredo MD LAB - URINE ORDERABLES Performing Organization Address City/State/[place] [address] [facility] Building [address] [place] [address] [address] LAB Drug abuse screen (NL, [...] LAB - URINE ORDERABLES Performing Organization Address City/State/[facility] [place] [address] [facility] [address] [facility] LAB documented in this encounter Visit Diagnoses Diagnosis Major depressive disorder, recurrent epi sode, moderate (H) - Primary Major depressive disorder, recurrent epi sode, moderate Uncomplicated opioid dependence (H) Opioid type dependence, unspecified documented in this encounter Care Teams Rubber Tester Relationship Specialty Start Date End Date System, Provider Not In PCP - General Clinic 08/12/14 07/13/16 documented as of this encounter
--- OUTSIDE RECORDS SUMMARY | 2021-12-13 12:42 | XMS_ITS | Encounter Summary ---
:1980 Author Organization [place] Address [address] [facility] [place] [address] Care Team Providers Name Role Phone System, Provider Not In Primary Care Provider Unavailable Reason for Visit Reason Onset Date Comments Patient Request 09/18/2015 Bridge for Subutex Encounter Details Date Type Department Care Team Description 09/18/2015 Telephone [facility] Edgar Alfredo Pat ient Request (Bridge [facility] Kleberg MD for Subutex) [address] [place] [address] [place] [phone] (Wo rk) Social History Tobacco Use Types Packs/Day Years Used Date Smoking Tobacco: Every Day Cigarettes 0.1 10 Smokeless Tobacco: Never Comments: 5 cigarettes a day Alcohol Use Standard Drinks/Week Comments No 0 (1 standard drink = 0.6 oz pure alcoho l) Sex Assigned at Date Recorded Female 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 YES Call taken on 09/18/2015 at 3:32 PM by Mark Roldan Thank you, Mark Roldan Light Technician [facility] documented in this encounter Plan of Treatment Upcoming Encounters Date Type Specialty Care Team Description 12/20/2021 Office Visit Wound Care Luis Camara DPM [address] [place] [address] (Wo rk) 01/21/2022 PRE VISIT Gastroenterology Landon Warren, *-*INCOMIN G RECORDS*-* MD Luis Fernando [address] [place] [address] (Wo rk) 01/21/2022 Office Visit Gastroenterology Juanis Levi [address] [place] [phone] Luis Fernando Miles MD [address] [place] [address] documented as of this encounter Visit Diagnoses Diagnosis Uncomplicated opioid dependence (H) - Pr imary Opioid type dependence, unspecified documented in this encounter Care Teams Bookkeeping Assistant Relationship Specialty Start Date End Date System, Provider Not In PCP - General Clinic 08/12/14 07/13/16 documented as of this encounter
--- OUTSIDE RECORDS SUMMARY | 2021-12-13 12:42 | XMS_ITS | Encounter Summary ---
:1980 Author Organization [place] Address [address] [facility] [place] [address] Care Team Providers Name Role Phone System, Provider Not In Primary Care Provider Unavailable Reason for Visit Reason Comments Recheck Medication Encounter Details Date Type Department Care Team Description 03/28/2015 Office Visit [facility] Edgar Alfredo Uncomplic ated opioid Clinic Ashly Gauthier MD dependence (H) (Primary [address] Dx) [address] [place] [address] [place] [phone] Social History Tobacco Use Types Packs/Day Years Used Date Smoking Tobacco: Every Day Cigarettes 0.1 10 Smokeless Tobacco: Never Comments: 5 cigarettes a day Alcohol Use Standard Drinks/Week Comments No 0 (1 standard drink = 0.6 oz pure alcoho l) Sex Assigned at Date Recorded Female 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 Gjylyjeg-Tmy-Oe-FA ( VITAMINS) 0.8 MG TABS Take 1 tablet by mouth daily 30 tablet 6 ??? Cholecalciferol (VITAMIN D) 2000 UNITS tablet Take 2,000 Units by mouth daily. 100 tablet 3 ??? [DISCONTINUED] VITAMINS PO Take by mouth. No Known Allergies Problem list, Medication list, Allergies, and Medical/Social/Surgical histories reviewed in [facility] andupdated as appropriate. ROS: OBJECTIVE: BP [...] visit in 1 MONTH Edgar Alfredo MD [facility] W MACHINE SETTER documented in this encounter Nursing Notes Suyapa [...] cuff size: large Suyapa Rodriguez MLT, CMA W MACHINE SETTER documented in this encounter Plan of Treatment Upcoming Encounters Date Type Specialty Care Team Description 12/20/2021 Office Visit Wound Care Luis Camara DPM [address] [place], [place] [address] (Wo rk) 01/21/2022 PRE VISIT Gastroenterology Landon Warren, *-*HEATHER Barriga RECORDS*-* MD Luis Fernando [address] [facility] [address] [place], [place] [address] (Wo rk) 01/21/2022 Office Visit Gastroenterology Juanis Levi [facility] [place] [phone] Luis Fernando Miles MD [address] [place] [address] [address] [place] [address] documented as of this encounter Procedures Procedure Name Priority Date/Time Associated Comments Diagnosis BUPRENORPHINE QUAL Routine 03/28/2015 11:04 Resul ts for this URINE AM SCREW MACHINE SETTER procedure are i n the results section. DRUG ABUSE SCREEN (NL, Routine 03/28/2015 11:04 R esults for this RW) AM SCREW MACHINE SETTER procedure are i n the results section. documented in this encounter Results Buprenorphine Qual Urine (03/28/2015 11:04 AM SCREW MACHINE SETTER) Patholo gist Method Time Signature Buprenorphine Negative [facility] LAB Qual Urine Specimen Anatomical Collection Method Collection Time Receive d Time (Source) Location / / Volume Laterality Urine specimen 03/28/2015 11:04 6 (specimen) AM SCREW MACHINE SETTER 11:09 AM SCREW MACHINE SETTER Edgar Alfredo MD LAB - URINE ORDERABLES Performing Organization Address City/State/[place] [address] [facility] Building [address] [facility] LAB Drug abuse screen (NL, RW) (03/28/2015 11:04 AM SCREW MACHINE SETTER) Component Value Ref Test Analysis Performed Pathologis [...] Urine specimen 03/28/2015 11:04 6 (specimen) AM SCREW MACHINE SETTER 11:09 AM SCREW MACHINE SETTER Edgar Alfredo MD LAB - URINE ORDERABLES Performing Organization Address City/State/[place] [address] [facility] Building [address] [facility] LAB documented in this encounter Visit Diagnoses Diagnosis Uncomplicated opioid dependence (H) - Pr imary Opioid type dependence, unspecified documented in this encounter Care Teams Infantryman Relationship Specialty Start Date End Date System, Provider Not In PCP - General Clinic 08/12/14 07/13/16 documented as of this encounter
--- OUTSIDE RECORDS SUMMARY | 2021-12-13 12:42 | XMS_ITS | Encounter Summary ---
:1980 Author Organization [place] Address [address] [facility] [place] [address] Care Team Providers Name Role Phone System, Provider Not In Primary Care Provider Unavailable Reason for Visit Reason Onset Date Comments Medication Request 05/02/2015 Encounter Details Date Type Department Care Team Description 05/02/2015 Telephone [facility] Edgar Alfredo Ma, Medication Request [place] [address] [place] [address] [place] [phone] (Reinaldo rk) Social History Tobacco Use Types Packs/Day Years Used Date Smoking Tobacco: Every Day Cigarettes 0.1 10 Smokeless Tobacco: Never Comments: 5 cigarettes a day Alcohol Use Standard Drinks/Week Comments No 0 (1 standard drink = 0.6 oz pure alcoho l) Sex Assigned at Date Recorded Female 01/14/2020 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 documented as of this encounter Miscellaneous [...] until next scheduled appt please send to [facility] pharmacy Vivian Spence [facility] Sausage Wrapper documented in this encounter Plan of Treatment Upcoming Encounters Date Type Specialty Care Team Description 12/20/2021 Office Visit Wound Care Luis Camara, CALVIN [address] [place], [place] [address] (Wo rk) 01/21/2022 PRE VISIT Gastroenterology Landon Warren, *-*INCOMIN G RECORDS*-* MD Luis Fernando [address] [place] [phone] (Wo rk) 01/21/2022 Office Visit Gastroenterology Juanis Levi [address] [place] [phone] Luis Fernando Miles MD [address] [place] [phone] documented as of this encounter Visit Diagnoses Diagnosis Uncomplicated opioid dependence (H) - Pr imary Opioid type dependence, unspecified documented in this encounter Care Teams Dockmaster Relationship Specialty Start Date End Date System, Provider Not In PCP - General Clinic 08/12/14 07/13/16 documented as of this encounter
--- OUTSIDE RECORDS SUMMARY | 2021-12-13 12:42 | XMS_ITS | Encounter Summary ---
:1980 Author Organization [place] Address [address] [facility] [place] [address] Care Team Providers Name Role Phone System, Provider Not In Primary Care Provider Unavailable Reason for Visit Reason Onset Date Comments Erroneous encounter-disregard 05/09/2015 Encounter Details Date Type Department Care Team Description 05/09/2015 Telephone [facility] Edgar Alfredo, [facility] Ashly VÁSQUEZ encounter-disregard [address] [place] [address] [place] [phone] (Wo rk) Social History Tobacco Use Types Packs/Day Years Used Date Smoking Tobacco: Every Day Cigarettes 0.1 10 Smokeless Tobacco: Never Comments: 5 cigarettes a day Alcohol Use Standard Drinks/Week Comments No 0 (1 standard drink = 0.6 oz pure alcoho l) Sex Assigned at Date Recorded Female 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/2020 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 documented as of this encounter Plan of Treatment Upcoming Encounters Date Type Specialty Care Team Description 12/20/2021 Office Visit Wound Care Luis Camara DPM [address] [place] [address] (Wo rk) 01/21/2022 PRE VISIT Gastroenterology Landon Warren, *-*HEATHER Barriga RECORDS*-* MD Luis Fernando [address] [facility] [address] [place], [place] [address] (Wo rk) 01/21/2022 Office Visit Gastroenterology Juanis Levi [address] [place] [phone] Luis Fernando Miles MD [address] [facility] [address] [place], [place] [phone] documented as of this encounter Visit Diagnoses Not on filedocumented in this encounter Care Teams Solar Fabrication Technician Relationship Specialty Start Date End Date System, Provider Not In PCP - General Clinic 08/12/14 07/13/16 documented as of this encounter
--- OUTSIDE RECORDS SUMMARY | 2021-12-13 12:42 | XMS_ITS | Encounter Summary ---
:1980 Author Organization [place] Address [address] [facility] [place] [address] Care Team Providers Name Role Phone System, Provider Not In Primary Care Provider Unavailable Reason for Visit Reason Onset Date Comments No Show Erroneous encounter-disregard 08/14/2015 Encounter Details Date Type Department Care Team Description 08/14/2015 Office Visit [facility] Edgar Alfredo NO SHOW ( Primary Dx); Clinic Ashly Gauthier MD ERRONEOUS ENCOUNTER--DISREGARD [address] [place] [address] [place] [phone] Social History Tobacco Use Types Packs/Day Years Used Date Smoking Tobacco: Every Day Cigarettes 0.1 10 Smokeless Tobacco: Never Comments: 5 cigarettes a day Alcohol Use Standard Drinks/Week Comments No 0 (1 standard drink = 0.6 oz pure alcoho l) Sex Assigned at Date Recorded Female 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 Please disregard. documented in this encounter Plan of Treatment Upcoming Encounters Date Type Specialty Care Team Description 12/20/2021 Office Visit Wound Care Luis Camara, PALOMOM [address] [place], [place] [phone] (Wo rk) 01/21/2022 PRE VISIT Gastroenterology Landon Warren, *-*INCOMIN G RECORDS*-* MD Luis Fernando [address] [place] [address] (Wo rk) 01/21/2022 Office Visit Gastroenterology Juanis Levi [address] [place] [phone] Luis Fernando Miles MD [address] [place] [phone] documented as of this encounter Visit Diagnoses Diagnosis NO SHOW - Primary ERRONEOUS ENCOUNTER--DISREGARD documented in this encounter Care Teams Retail Greeter Relationship Specialty Start Date End Date System, Provider Not In PCP - General Clinic 08/12/14 07/13/16 documented as of this encounter
--- OUTSIDE RECORDS SUMMARY | 2021-12-13 12:42 | XMS_ITS | Encounter Summary ---
:1980 Author Organization [place] Address [address] [facility] [place] [address] Care Team Providers Name Role Phone System, Provider Not In Primary Care Provider Unavailable Reason for Visit Reason Onset Date Comments Recheck Medication Erroneous encounter-disregard 09/25/2015 Encounter Details Date Type Department Care Team Description 09/18/2015 Office Visit [facility] Edgar Alfredo NO SHOW ( Primary Dx); Clinic Ashly Gauthier MD ERRONEOUS ENCOUNTER--DISREGARD [address] [place] [address] [place] [phone] Social History Tobacco Use Types Packs/Day Years Used Date Smoking Tobacco: Every Day Cigarettes 0.1 10 Smokeless Tobacco: Never Comments: 5 cigarettes a day Alcohol Use Standard Drinks/Week Comments No 0 (1 standard drink = 0.6 oz pure alcoho l) Sex Assigned at Date Recorded Female 01/14/2020 10:57 AM PRODUCTION WELDER documented as of this encounter Progress Notes Edgar Alfredo MD - 09/25/2015 9:30 PM CDT This encounter was opened in error. Please disregard. documented in this encounter Plan of Treatment Upcoming Encounters Date Type Specialty Care Team Description 12/20/2021 Office Visit Wound Care Luis Camara, [place] [address] [place], [place] [phone] (Wo rk) 01/21/2022 PRE VISIT Gastroenterology Landon Warren, *-*WANDAIN G RECORDS*-* MD Luis Fernando [address] [place] [address] (Wo rk) 01/21/2022 Office Visit Gastroenterology Juanis Levi [address] [place] [phone] Luis Fernando Miles MD [address] [place] [phone] documented as of this encounter Visit Diagnoses Diagnosis NO SHOW - Primary ERRONEOUS ENCOUNTER--DISREGARD documented in this encounter Care Teams Freelance Copywriter Relationship Specialty Start Date End Date System, Provider Not In PCP - General Clinic 08/12/14 07/13/16 documented as of this encounter
--- OUTSIDE RECORDS SUMMARY | 2021-12-13 12:42 | XMS_ITS | Encounter Summary ---
:1980 Author Organization [place] Address [address] [place] [address] Care Team Providers Name Role Phone System, Provider Not In Primary Care Provider Unavailable Reason for Visit Reason Onset Date Comments Recheck Medication Erroneous encounter-disregard 05/07/2015 Encounter Details Date Type Department Care Team Description 05/01/2015 Office Visit [facility] Edgar Alfredo ERRONEOUS Clinic Ashly Gauthier MD ENCOUNTER--DISREGARD [address] [place] (Primary Dx) [address] [place] [phone] Social History Tobacco Use Types Packs/Day Years Used Date Smoking Tobacco: Every Day Cigarettes 0.1 10 Smokeless Tobacco: Never Comments: 5 cigarettes a day Alcohol Use Standard Drinks/Week Comments No 0 (1 standard drink = 0.6 oz pure alcoho l) Sex Assigned at Date Recorded Female 01/14/2020 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 Please disregard. documented in this encounter Plan of Treatment Upcoming Encounters Date Type Specialty Care Team Description 12/20/2021 Office Visit Wound Care Luis Camara, [place] [address] [place], [place] [phone] (Wo rk) 01/21/2022 PRE VISIT Gastroenterology Landon Warren, *-*INCOMIN G RECORDS*-* MD Luis Fernando [address] [place] [address] (Wo rk) 01/21/2022 Office Visit Gastroenterology Juanis Levi [address] [place] [phone] Luis Fernando Miles MD [address] [phone] documented as of this encounter Visit Diagnoses Diagnosis ERRONEOUS ENCOUNTER--DISREGARD - Primary documented in this encounter Care Teams Editor School Photograph Relationship Specialty Start Date End Date System, Provider Not In PCP - General Clinic 08/12/14 07/13/16 documented as of this encounter
--- OUTSIDE RECORDS SUMMARY | 2021-12-13 12:42 | XMS_ITS | Encounter Summary ---
:1980 Author Organization [place] Address [address] [facility] [place] [address] Care Team Providers Name Role Phone System, Provider Not In Primary Care Provider Unavailable Reason for Visit Reason Onset Date Comments Medication Request 05/09/2015 Encounter Details Date Type Department Care Team Description 05/09/2015 Telephone [facility] Edgar Workman Ma, Medication Request [place] [address] [place] [address] [place] [phone] (Reinaldo rk) Social History Tobacco Use Types Packs/Day Years Used Date Smoking Tobacco: Every Day Cigarettes 0.1 10 Smokeless Tobacco: Never Comments: 5 cigarettes a day Alcohol Use Standard Drinks/Week Comments No 0 (1 standard drink = 0.6 oz pure alcoho l) Sex Assigned at Date Recorded Female 01/14/2020 10:57 AM 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 [address] [place] [address] (Wo rk) 01/21/2022 Office Visit Gastroenterology Juanis Levi [address] [place] [phone] Luis Fernando Miles MD [address] [place] [phone] documented as of this encounter Visit Diagnoses Diagnosis Uncomplicated opioid dependence (H) - Pr imary Opioid type dependence, unspecified documented in this encounter Care Teams Well Service Pump Equipment Operator Relationship Specialty Start Date End Date System, Provider Not In PCP - General Clinic 08/12/14 07/13/16 documented as of this encounter
--- OUTSIDE RECORDS SUMMARY | 2021-12-13 12:43 | XMS_ITS | Encounter Summary ---
:1980 Author Organization [place] Address [facility] [place] [address] Care Team Providers Name Role Phone System, Provider Not In Primary Care Provider Unavailable Reason for Visit (Routine) - Closed Specialty Diagnoses / Procedures Referred By Contact Refer red To Contact Perinatology / Diagnoses * ID INS Zz Ur Peds Echo Lab Cardiology Procedures ECH COMPLETE* [address] [place] [address] Referral ID Status Reason Start Date Expiration Date Visits Requ ested Visits Authorized [id number] Closed 08/24/2014 08/24/2015 1 1 Encounter Details Date Type Department Care Team Description 08/24/2014 Hospital Encounter [facility] Echo/EKG Breanna Coleman MD [address] [place] [address] , [address] [facility] [place] [address] Social History Tobacco Use Types Packs/Day Years Used Date Smoking Tobacco: Every Day Cigarettes 0.1 10 Smokeless Tobacco: Never Comments: 5 cigarettes a day Alcohol Use Standard Drinks/Week Comments No 0 (1 standard drink = 0.6 oz pure alcoho l) Sex Assigned at Date Recorded Female 01/14/2020 10:57 AM BUSINESS ASST documented as of this encounter Medications at [...] by 30 tablet 6 12/10/2012 08/30/19 17 Csyskzax-Sqg-Ry-FA mouth daily ( VITAMINS) 0.8 MG TABSIndications: [...] Care Luis Camara, [place] [address] [place] [address] (Wo rk) 01/21/2022 PRE VISIT Gastroenterology Landon Warren, *-*HEATHER G RECORDS*-* MD Luis Fernando [address] [place] [phone] (Wo rk) 01/21/2022 Office Visit Gastroenterology Juanis Levi [address] [place] [phone] Luis Fernando Miles MD [address] [place] [phone] documented as of this encounter Procedures Procedure [...] Narrative 08/25/2014 1:37 PM CDT PEDIATRIC ECHOCARDIOGRAM [facility]? s [facility] ? Gestational Age: 24 weeks Due Date: 11/18 ?? : Delivery Site: [facility] ??Tech: [email or web address] Diagnosis: Heart defect ? [...] ?? The plan is to deliver at [facility]. ??Expecting a full term delivery and starting [...] the systemic pulmonary venous connections. Ezra Rodríguez MD-[phone] ? Kyung Sheets MD-Pager [phone] Carlton Olivera MD-Pager ??[phone] or [phone] ? Blane Seay MD-Pager [phone] ? Carina Ruiz MD-Pager [phone] Tk Spain MD-Pager # [phone] Loretta Roberts MD Pager [phone] Brice Lloyd MD-Pager [phone] Breanna Coleman MD CV PEDS ECHO ORDERABLES documented in this encounter Visit Diagnoses Diagnosis , incidental state, incidental documented in this encounter Care Teams Counter Top Maker Relationship Specialty Start Date End Date System, Provider Not In PCP - General Clinic 08/12/14 07/13/16 documented as of this encounter
--- OUTSIDE RECORDS SUMMARY | 2021-12-13 12:43 | XMS_ITS | Encounter Summary ---
:1980 Author Organization [place] Address [address] [facility] [place] [address] Care Team Providers Name Role Phone System, Provider Not In Primary Care Provider Unavailable Reason for Visit Reason Onset Date Comments Ultrasound Comp US-heart defect Ultrasound echo-heart def ect Consult MFM-heart defect Erroneous encounter-disregard 08/25/2014 Encounter Details Date Type Department Care Team Description 08/24/2014 Office Visit [facility] Jaerd, Breanna Other kno wn or suspected abnormality, not elsewhere classified, affecting management of mother, antepartum condition or complication (Primary Dx); Maternal MD Julian ERRONEOUS ENCOUNTER--DISREGARD [facility] [address] [place], [place] [address] [address] [place], [place] [address] [phone] Social History Tobacco Use Types Packs/Day Years Used Date Smoking Tobacco: Every Day Cigarettes 0.1 10 Smokeless Tobacco: Never Comments: 5 cigarettes a day Alcohol Use Standard Drinks/Week Comments No 0 (1 standard drink = 0.6 oz pure alcoho l) Sex Assigned at Date Recorded Female 01/14/2020 10:57 AM CLINICAL 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 Please disregard. documented in this encounter Plan of Treatment Upcoming Encounters Date Type Specialty Care Team Description 12/20/2021 Office Visit Wound Care Luis Camara, [place] [address] [place] [address] (Wo rk) 01/21/2022 PRE VISIT Gastroenterology Landon Warren, *-*INCOMIN G RECORDS*-* MD Luis Fernando [address] [place] [address] (Wo rk) 01/21/2022 Office Visit Gastroenterology Juanis Levi [address] [place] [address] Luis Fernando Miles MD [address] [place] [address] documented as of this encounter Visit Diagnoses Diagnosis Other known or suspected abnormali ty, not elsewhere classified, affecting management of mother, antepartum conditi on or complication - Primary ERRONEOUS ENCOUNTER--DISREGARD documented in this encounter Care Teams Marble Machine Tender Relationship Specialty Start Date End Date System, Provider Not In PCP - General Clinic 08/12/14 07/13/16 documented as of this encounter
--- OUTSIDE RECORDS SUMMARY | 2021-12-13 12:43 | XMS_ITS | Encounter Summary ---
:1980 Author Organization [place] Address [address] [facility] [place] [address] Care Team Providers Name Role Phone System, Provider Not In Primary Care Provider Unavailable Reason for Visit Reason Comments Recheck Medication Encounter Details Date Type Department Care Team Description 11/24/2014 Office Visit [facility] Edgar Alfredo Uncomplic ated opioid Clinic Ashly Gauthier MD dependence (H) (Primary [address] Dx) [address] [place] [address] [place] [phone] Social History Tobacco Use Types Packs/Day Years Used Date Smoking Tobacco: Every Day Cigarettes 0.1 10 Smokeless Tobacco: Never Comments: 5 cigarettes a day Alcohol Use Standard Drinks/Week Comments No 0 (1 standard drink = 0.6 oz pure alcoho l) Sex Assigned at Date Recorded Female 01/14/2020 10:57 AM CRUSHER SETTER documented as of this encounter Last [...] Take 1 tablet by mouth daily ??? Nzqwturl-Fsp-At-FA ( VITAMINS) 0.8 MG TABS Take 1 [...] list, Allergies, and Medical/Social/Surgical histories reviewed in [facility] andupdated as appropriate. OBJECTIVE: BP 113/81 [...] RE-CHECK 1 MONTH} Edgar Alfredo MD, MD [facility] documented in [...] Wound Care Luis Camara DPM [address] [place], [place] [address] (Wo rk) 01/21/2022 PRE VISIT Gastroenterology Landon Warren, *-*HEATHER G RECORDS*-* MD Luis Fernando [address] [facility] [address] [place], [place] [address] (Wo rk) 01/21/2022 Office Visit Gastroenterology Juanis Levi [address] [place] [phone] Luis Fernando Miles MD 6 [facility] [address] [place] [address] documented as of this encounter Procedures Procedure [...] Organization Address City/State/[place] [address] [facility] Building [address] [place] [address] [address] [facility] Drug abuse screen [...] Organization Address City/State/[place] [address] [facility] [address] [facility] documented in this encounter Visit Diagnoses Diagnosis Uncomplicated opioid dependence (H) - Pr imary Opioid type dependence, unspecified documented in this encounter Care Teams Kiln Furniture Caster Relationship Specialty Start Date End Date System, Provider Not In PCP - General Clinic 08/12/14 07/13/16 documented as of this encounter
--- OUTSIDE RECORDS SUMMARY | 2021-12-13 12:43 | XMS_ITS | Encounter Summary ---
:1980 Author Organization [place] Address [address] [facility] [place] [address] Care Team Providers Name Role Phone System, Provider Not In Primary Care Provider Unavailable Reason for Visit Reason Comments Ultrasound ECHO, comp u/s: possib le heart anomaly Consult MFM consult: possible heart anomaly Encounter Details Date Type Department Care Team Description 08/22/2014 PRE VISIT [facility] Sintia Rasheed ( ECHO, Maternal Medicine GENARO Ghotra comp u/s: possible [facility] heart anomaly); [address] Consult ([facility] consult: [place], [place] [address] possible heart [phone] anomaly) Social History Tobacco Use Types Packs/Day Years Used Date Smoking Tobacco: Every Day Cigarettes 0.1 10 Smokeless Tobacco: Never Comments: 5 cigarettes a day Alcohol Use Standard Drinks/Week Comments No 0 (1 standard drink = 0.6 oz pure alcoho l) Sex Assigned at Date Recorded Female 01/14/2020 10:57 AM LAWYER CRIMINAL documented as of this encounter Plan of Treatment Upcoming Encounters Date Type Specialty Care Team Description 12/20/2021 Office Visit Wound Care Luis Camara DPM [address] [place] [address] (Wo rk) 01/21/2022 PRE VISIT Gastroenterology Landon Warren, *-*WANDAIN G RECORDS*-* MD Luis Fernando [address] [facility] [address] [address] [place] [address] (Wo rk) 01/21/2022 Office Visit Gastroenterology Juanis Levi [address] [place] [address] Luis Fernando Miles MD 516 [facility] [address] [place], [place] [phone] documented as of this encounter Visit Diagnoses Not on filedocumented in this encounter Care Teams Over Short And Damage Clerk Relationship Specialty Start Date End Date System, Provider Not In PCP - General Clinic 08/12/14 07/13/16 documented as of this encounter
--- OUTSIDE RECORDS SUMMARY | 2021-12-13 12:43 | XMS_ITS | Encounter Summary ---
:1980 Author Organization [place] Address 24[address] [place] [address] Care Team Providers Name Role Phone System, Provider Not In Primary Care Provider Unavailable Reason for Visit Reason Onset Date Comments Transfer Note 10/10/2014 Encounter Details Date Type Department Care Team Description 10/10/2014 Telephone [facility] Maternal Sintia Rasheed, Transfer Note Medicine Center RN [place] [address] [place] [address] Social History Tobacco Use Types Packs/Day Years Used Date Smoking Tobacco: Every Day Cigarettes 0.1 10 Smokeless Tobacco: Never Comments: 5 cigarettes a day Alcohol Use Standard Drinks/Week Comments No 0 (1 standard drink = 0.6 oz pure alcoho l) Sex Assigned at Date Recorded Female 01/14/2020 10:57 AM NUCLEAR REACTOR TECHNICIAN documented as of this encounter Miscellaneous Notes Telephone Encounter - Sintia Rasheed RN - 10/10/2014 9:20 AM CDT Records faxed to [facility], verified [facility] received these records. Syeda, Bead Wire Insulator, will contact patient to schedule upcoming appts with [facility]. documented in this encounter Plan of Treatment Upcoming Encounters Date Type Specialty Care Team Description 12/20/2021 Office Visit Wound Care Luis Camara DPM [address] [place], [place] [address] (Wo rk) 01/21/2022 PRE VISIT Gastroenterology Landon Warren, *-*WANDAIN G RECORDS*-* MD Luis Fernando 6 [facility] [address] [place] [address] (Wo rk) 01/21/2022 Office Visit Gastroenterology Juanis Levi [address] [place] [address] Luis Fernando Miles MD [address] [place] [address] documented as of this encounter Visit Diagnoses Not on filedocumented in this encounter Care Teams Tank Hoop Bender Relationship Specialty Start Date End Date System, Provider Not In PCP - General Clinic 08/12/14 07/13/16 documented as of this encounter
--- OUTSIDE RECORDS SUMMARY | 2021-12-13 12:43 | XMS_ITS | Encounter Summary ---
:1980 Author Organization [place] Address [address] [facility] [place] [address] Care Team Providers Name Role Phone System, Provider Not In Primary Care Provider Unavailable Reason for Visit Reason Onset Date Comments Erroneous encounter-disregard 10/11/2014 Encounter Details Date Type Department Care Team Description 10/11/2014 Office Visit [facility] Edgar Alfredo ERRONEOUS Clinic Ashly Gauthier MD ENCOUNTER--DISREGARD [address] [place] (Primary Dx) [address] [place] [phone] Social History Tobacco Use Types Packs/Day Years [...] Visit Wound Care Luis Camara DPM [address] [place], [place] [address] (Wo rk) 01/21/2022 PRE VISIT Gastroenterology Landon Warren, *-*WANDAIN G RECORDS*-* MD Luis Fernando [address] [phone] (Wo rk) 01/21/2022 Office Visit Gastroenterology Juanis Levi [address] [place] [phone] Luis Fernando Miles MD [address] [phone] documented as of this encounter Visit Diagnoses Diagnosis ERRONEOUS ENCOUNTER--DISREGARD - Primary documented in this encounter Care Teams Call Center Director Relationship Specialty Start Date End Date System, Provider Not In PCP - General Clinic 08/12/14 07/13/16 documented as of this encounter
--- OUTSIDE RECORDS SUMMARY | 2021-12-13 12:43 | XMS_ITS | Encounter Summary ---
:1980 Author Organization [place] Address [address] [facility] [place] [address] Care Team Providers Name Role Phone System, Provider Not In Primary Care Provider Unavailable Reason for Referral - Closed Specialty Diagnoses / Procedures Referred By Contact Refer red To Contact Diagnoses Unspecified complication of , antepartum Angelique Brewer MD [address] [place] [address] Referral ID Status Reason Start Date Expiration Date Visits Requ ested Visits Authorized [id number] Closed 08/12/2014 02/08/2015 1 1 Encounter Details Date Type Department Care Team Description 08/12/2014 [facility] Only [facility] Angelique Brewer MD Unspecified Maternal [address] complica tion of Medicine [place] [address] , [place] [address] (Primary Dx) [address] [phone] [place], [place] [address] (Work) [phone] Social History Tobacco Use Types Packs/Day Years Used Date Smoking Tobacco: Every Day Cigarettes 0.1 10 Smokeless Tobacco: Never Comments: 5 cigarettes a day Alcohol Use Standard Drinks/Week Comments No 0 (1 standard drink = 0.6 oz pure alcoho l) Sex Assigned at Date Recorded Female 01/14/2020 10:57 AM INTERNATIONAL 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 TEACHER documented as of this encounter Plan of Treatment Upcoming Encounters Date Type Specialty Care Team Description 12/20/2021 Office Visit Wound Care Luis Camara, [place] [address] [place] [address] (Wo rk) 01/21/2022 PRE VISIT Gastroenterology Landon Warren, *-*INCOMIN G RECORDS*-* MD Luis Fernando [address] [place] [address] (Wo rk) 01/21/2022 Office Visit Gastroenterology Juanis Levi [address] [place] [address] Luis Fernando Miles MD [address] [address] Scheduled Referrals Name Type Priority Associated Diagnoses Order S chedule [facility] Referral Routine Unspecified complicatio n of Ordered: 08/12/2014 REFERRAL- , antepartum documented as of this encounter Visit Diagnoses Diagnosis Unspecified complication of , a ntepartum - Primary documented in this encounter Care Teams Perinatal Educator Relationship Specialty Start Date End Date System, Provider Not In PCP - General Clinic 08/12/14 07/13/16 documented as of this encounter
--- OUTSIDE RECORDS SUMMARY | 2021-12-13 12:43 | XMS_ITS | Encounter Summary ---
:1980 Author Organization [place] Address [address] [facility] [place] [address] Care Team Providers Name Role Phone System, Provider Not In Primary Care Provider Unavailable Reason for Visit Reason Onset Date Comments Care 10/06/2014 Encounter Details Date Type Department Care Team Description 10/06/2014 Telephone [facility] Maternal Breanna [place] MD [facility] [address] [place] [address] [place], [place] [address] [phone] Social History Tobacco Use Types Packs/Day Years Used Date Smoking Tobacco: Every Day Cigarettes 0.1 10 Smokeless Tobacco: Never Comments: 5 cigarettes a day Alcohol Use Standard Drinks/Week Comments No 0 (1 standard drink = 0.6 oz pure alcoho l) Sex Assigned at Date Recorded Female 01/14/2020 10:57 AM SKIVER COUNTER documented as of this encounter Miscellaneous Notes Telephone Encounter - Breanna Coleman MD - 10/06/2014 3:47 PM CDT Patient has missed several appointments at [facility] in the last few weeks. Called [...] Visit Wound Care Luis Camara, [place] [address] [place], [place] [phone] (Wo rk) 01/21/2022 PRE VISIT Gastroenterology Landon Warren, *-*INCOMIN G RECORDS*-* MD Luis Fernando [address] [place] [phone] (Wo rk) 01/21/2022 Office Visit Gastroenterology Juanis Levi [address] [place] [phone] Luis Fernando Miles MD [address] [place] [phone] documented as of this encounter Visit Diagnoses Not on filedocumented in this encounter Care Teams Aluminum Siding Applicator Relationship Specialty Start Date End Date System, Provider Not In PCP - General Clinic 08/12/14 07/13/16 documented as of this encounter
--- OUTSIDE RECORDS SUMMARY | 2021-12-13 12:43 | XMS_ITS | Encounter Summary ---
:1980 Author Organization [place] Address [address] [facility] [place] [address] Care Team Providers Name Role Phone System, Provider Not In Primary Care Provider Unavailable Reason for Referral - Closed Specialty Diagnoses / Procedures Referred By Contact Refer red To Contact Diagnoses Other known or suspected abnormality, not elsewhere classified, affecting management of mother, antepartum condition or complication Sintia Rasheed RN Referral ID Status Reason Start Date Expiration Date Visits Requ ested Visits Authorized [id number] Closed 08/12/2014 02/08/2015 1 1 Encounter Details Date Type Department Care Team Description 08/12/2014 Orders Only [facility] Sintia Rasheed , incidental Maternal GENARO Ghotra (Primary Dx) [facility] [address] [place], [place] [address] Social History Tobacco Use Types Packs/Day Years Used Date Smoking Tobacco: Every Day Cigarettes 0.1 10 Smokeless Tobacco: Never Comments: 5 cigarettes a day Alcohol Use Standard Drinks/Week Comments No 0 (1 standard drink = 0.6 oz pure alcoho l) Sex Assigned at Date Recorded Female 01/14/2020 10:57 AM CLOTH WASHER documented as of this encounter Plan of Treatment Upcoming Encounters Date Type Specialty Care Team Description 12/20/2021 Office Visit Wound Care Luis Camara DPM [address] [place], [place] [address] (Wo rk) 01/21/2022 PRE VISIT Gastroenterology Landon Warren, *-*WANDAIN G RECORDS*-* MD Luis Fernando [address] [place] [address] [address] [place] [address] (Wo rk) 01/21/2022 Office Visit Gastroenterology Juanis Levi [address] [place] [address] Luis Fernando Miles MD [address] [facility] [address] [place] [address] Scheduled Referrals Name Type Priority Associated Diagnoses Order S chejohnle [facility] Office Visit Referral Routine , incidental We ekly for 1 Occurrences starting 2014 until 08/13/2015 documented as of this encounter Results [facility] US Comprehensive Single (08/24/2014 11:29 AM [...] 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 The remainder of anatomy was adequately visualized and appeared normal. Narrative 08/26/2014 3:51 PM CDT Comprehensive Pat. Name: STEPHANI MCCORMICK Study Date: 08/24 10:55am Pat. NO: [id number] Referring ??MD: KATY ROCHE Site: [facility] And Drying Supervisor Cooking Casing: Carlos Gordon RDMS : 1980 Age: 35 [...] (HC-AC-FL) Head / Face / Neck Biometry: Educational Psychologist ?7.9 ?mm ? Nasal bone ?7.2 ?mm [...] that delivery will need to be at [facility] where NICU and Pediatric Cardiology as [...] this patient and /or family members. Approximate cvlo-je-ytmk time was 30 min utes. Procedure Note Breanna Coleman MD - 09/10/2016Format ting of this note might be different from the original. Comprehensive Pat. Name:Elizabeth MCCORMICK Date:08/25/19 10:55am Pat. NO: [id number] MD:YURIDIA ROCHE [facility]Carlos Gordon RDMS :1980Age:35 INDICATION Congenital Heart Defect. [...] (HC-AC-FL) Head / Face / Neck Biometry: Educational Psychologist 7.9 mm Nasal bone 7.2 mm Amniotic [...] that delivery will need to be at [facility] where NICU and Pediatric Cardiology as [...] this patient and /or family members. Approximate whqm-lu-ilwi time was 30 min utes. IMPRESSION Single intrauterine at 24 1/7 weeks gestation by 11 week ultrasound. Sonographic biometry agrees with gestational age predicted by prior ultrasound. 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 The remainder of anatomy was adequately visualized and appeared normal. Breanna Coleman MD [facility] US ORDERABLES Echo Complete-Peds Cardiology (08/24/2014 10:16 AM CDT) Anatomical Region Laterality Modality Ultrasound Specimen (Source) Anatomical Location Collection Method / Collectio n Time Received Time / Laterality Volume Narrative 08/25/2014 1:37 PM CDT PEDIATRIC ECHOCARDIOGRAM [facility]? s [facility] ? Gestational Age: 24 weeks Due Date: 11/18 ?? : Delivery Site: [facility] ??Tech: [email or web address] Diagnosis: Heart defect ? [...] ?? The plan is to deliver at [facility]. ??Expecting a full term delivery [...] the systemic pulmonary venous connections. Ezra Rodríguez MD-[phone] ? Kyung Sheets MD-Pager [phone] Carlton Olivera MD-Pager ??[phone] or [phone] ? Blane Seay MD-Pager [phone] ? Carina Ruiz MD-Pager [phone] Tk Spain MD-Pager # [phone] Loretta Roberts MD Pager [phone] Brice Lloyd MD-Pager [phone] Breanna Coleman MD CV PEDS ECHO ORDERABLES documented in this encounter Visit Diagnoses Diagnosis , incidental - Primary state, incidental , incidental state, incidental , incidental state, incidental documented in this encounter Care Teams Manager Linux Relationship Specialty Start Date End Date System, Provider Not In PCP - General Clinic 08/12/14 07/13/16 documented as of this encounter
--- OUTSIDE RECORDS SUMMARY | 2021-12-13 12:43 | XMS_ITS | Encounter Summary ---
:1980 Author Organization [place] Address [address] [facility] [place] [address] Care Team Providers Name Role Phone System, Provider Not In Primary Care Provider Unavailable Reason for Visit Reason Comments Recheck Medication Encounter Details Date Type Department Care Team Description 12/26/2014 Office Visit [facility] Edgar Alfredoplic ated opioid Clinic Ashly Gauthier MD dependence (H) (Primary [address] Dx) [address] [address] [place] [phone] Social History Tobacco Use Types Packs/Day Years Used Date Smoking Tobacco: Every Day Cigarettes 0.1 10 Smokeless Tobacco: Never Comments: 5 cigarettes a day Alcohol Use Standard Drinks/Week Comments No 0 (1 standard drink = 0.6 oz pure alcoho l) Sex Assigned at Date Recorded Female 01/14/2020 10:57 AM PACKAGER MACHINE documented as of this encounter Last Filed Vital Signs Vital Sign Reading Time Taken Comments Blood Pressure 124/73 12/26/2014 11:19 AM PACKAGER MACHINE Pulse 94 12/26/2014 11:19 AM PACKAGER MACHINE Temperature - - Respiratory Rate - - Oxygen Saturation - - Inhaled Oxygen Concentration - - Weight - - Height - - Body Mass Index - - documented in this encounter Progress Notes Edgar lAfredo MD - 12/26/2014 5:14 PM CST SUBJECTIVE: [...] Take 1 tablet by mouth daily ??? Vrzoiddy-Ocy-Nu-FA ( VITAMINS) 0.8 MG TABS Take 1 [...] list, Allergies, and Medical/Social/Surgical histories reviewed in [facility] andupdated as appropriate. ROS: OBJECTIVE: BP 124/73 [...] in 1 MONTH Edgar Alfredo MD, MD [facility] AGER MACHINE documented in this encounter Nursing Notes Suyapa [...] cuff size: regular Suyapa Rodriguez MLT, CMA AGER MACHINE documented in this encounter Plan of Treatment Upcoming Encounters Date Type Specialty Care Team Description 12/20/2021 Office Visit Wound Care Luis Camara DPM [address] [place] [address] (Wo rk) 01/21/2022 PRE VISIT Gastroenterology Landon Warren, *-*WANDAIN G RECORDS*-* MD Luis Fernando [address] [facility] [address] [place] [address] (Wo rk) 01/21/2022 Office Visit Gastroenterology Juanis Levi [address] [place] [address] Luis Fernando Miles MD [address] [facility] [address] [place], [place] [address] documented as of this encounter Procedures Procedure Name Priority Date/Time Associated Diagnosis Comme nts BUPRENORPHINE QUAL Routine 12/26/2014 11:11 Uncomplicated opio id Results for this URINE AM PACKAGER MACHINE dependence (H) procedure are in the results section. DRUG ABUSE SCREEN Routine 12/26/2014 11:11 Uncomplicated opioi d Results for this (NL, RW) AM PACKAGER MACHINE dependence (H) procedure are in the results section. documented in this encounter Results Buprenorphine Qual Urine (12/26/2014 11:11 AM PACKAGER MACHINE) Patholo gist Method Time Signature Buprenorphine Negative [facility] Qual Urine Specimen Anatomical Collection Method Collection Time Receive d Time (Source) Location / / Volume Laterality Urine specimen 12/26/2014 11:11 5 (specimen) AM PACKAGER MACHINE 11:16 AM PACKAGER MACHINE Edgar Aflredo MD LAB - URINE ORDERABLES Performing Organization Address City/State/[place] [address] [facility] Building [address] [facility] [address] [facility] Drug abuse screen (NL, RW) (12/26/2014 11:11 AM PACKAGER MACHINE) Component Value Ref Test Analysis Performed Pathologis [...] Urine specimen 12/26/2014 11:11 5 (specimen) AM PACKAGER MACHINE 11:16 AM PACKAGER MACHINE Edgar Alfredo MD LAB - URINE ORDERABLES Performing Organization Address City/State/[place] [address] [facility] Building [address] [address] [facility] documented in this encounter Visit Diagnoses Diagnosis Uncomplicated opioid dependence (H) - Pr imary Opioid type dependence, unspecified documented in this encounter Care Teams Transmission Supervisor Relationship Specialty Start Date End Date System, Provider Not In PCP - General Clinic 08/12/14 07/13/16 documented as of this encounter
--- OUTSIDE RECORDS SUMMARY | 2021-12-13 12:43 | XMS_ITS | Encounter Summary ---
:1980 Author Organization [place] Address [address] [facility] [place] [address] Care Team Providers Name Role Phone System, [...] Expiration Date Visits Requ ested Visits Authorized [id number] Closed 08/12/2014 02/08/2015 1 1 Encounter Details Date Type Department Care Team Description 08/24/2014 Office Visit [facility] Breanna Coleman con genital heart Maternal MD Julian defect, antepartum [facility] [address] [place], [place] [address] [address] [place] [phone] Social History Tobacco Use Types Packs/Day Years Used Date Smoking Tobacco: Every Day Cigarettes 0.1 10 Smokeless Tobacco: Never Comments: 5 cigarettes a day Alcohol Use Standard Drinks/Week Comments No 0 (1 standard drink = 0.6 oz pure alcoho l) Sex Assigned at Date Recorded Female 01/14/2020 10:57 AM OUTSOLE SPLICER documented as of this encounter Progress Notes Breanna Coleman MD - 08/26/2014 3:38 PM CDT The patient was seen for an ultrasound and consultation in the Maternal- Medicine Center at [facility] today. The following is the summary of [...] of this patient and/or family members. Approximate qdef-fu-yhgc time was 30 minutes. Breanna Coleman MD Maternal- Medicine & Clinical Genetics August 24, 2014 documented in this encounter Nursing Notes Sintia Rasheed RN - 08/24/2014 3:27 PM CDT Pt seen for comp u/s, ECHO, and MFM consult. Pediatric Cardiology and Dr Coleman met with patient. Plan for patient to return to [facility] in 4 weeks for f/u comp u/s, 1st OBV, and f/u ECHO. Will schedule pt for NICU consult at that appointment. documented in this encounter Plan of Treatment Upcoming Encounters Date Type Specialty Care Team Description 12/20/2021 Office Visit Wound Care Luis Camara, [place] [address] [place], [place] [address] (Wo rk) 01/21/2022 PRE VISIT Gastroenterology Landon Warren, *-*HEATHER Barriga RECORDS*-* MD Luis Fernando [address] [phone] (Wo rk) 01/21/2022 Office Visit Gastroenterology Juanis Levi [address] [place] [phone] Luis Fernando Miles MD [address] [place] [phone] documented as of this encounter Visit Diagnoses Diagnosis congenital heart defect, antepartu m Other known or suspected abnormali ty, not elsewhere classified, affecting management of mother, antepartum conditi on or complication documented in this encounter Care Teams Employment Consultant Relationship Specialty Start Date End Date System, Provider Not In PCP - General Clinic 08/12/14 07/13/16 documented as of this encounter
--- OUTSIDE RECORDS SUMMARY | 2021-12-13 12:43 | XMS_ITS | Encounter Summary ---
:1980 Author Organization [place] Address [address] [facility] [place] [address] Care Team Providers Name Role Phone System, Provider Not In Primary Care Provider Unavailable Reason for Visit Reason Onset Date Comments Other 01/17/2015 appointment request Encounter Details Date Type Department Care Team Description 01/17/2015 Telephone [facility] Edgar Alfredo, [facility] (appointment Clinic [place] request ) [address] [place] [address] [place] [phone] (Wo rk) Social History Tobacco Use Types Packs/Day Years Used Date Smoking Tobacco: Every Day Cigarettes 0.1 10 Smokeless Tobacco: Never Comments: 5 cigarettes a day Alcohol Use Standard Drinks/Week Comments No 0 (1 standard drink = 0.6 oz pure alcoho l) Sex Assigned at Date Recorded Female 01/14/2020 10:57 AM STEEL BOX TOE INSERTER documented as of this encounter Miscellaneous Notes Telephone Encounter - Suyapa Rodriguez CMA - 01/17/2015 1:43 PM CST Called patient, scheduled for . 01/19 @ 10:30a L BOX TOE INSERTER Telephone Encounter - Edgar Alfredo MD - 01/17/2015 12:48 PM CST at 10:30 or Friday at 10:00 Should have enough medication until then L BOX TOE INSERTER Telephone Encounter - Shayy Boles - 01/17/2015 10:24 AM CST Incoming call from patient requesting to speak with provider about possibly being seen sometime thisweek. Patient states her son is in the hospital and she is wondering if can squeeze her in to be seen. She is also in need of a bridge of her medication for subutex. Patient can be reached at [phone] Shayy Boles Team Integration Technician L BOX TOE INSERTER documented in this encounter Plan of Treatment Upcoming Encounters Date Type Specialty Care Team Description 12/20/2021 Office Visit Wound Care Luis Camara DPM [address] [place] [address] (Wo rk) 01/21/2022 PRE VISIT Gastroenterology Landon Warren, *-*INCOMIN G RECORDS*-* MD Luis Fernando [address] [place] [phone] (Wo rk) 01/21/2022 Office Visit Gastroenterology Juanis Levi [address] [place] [phone] Luis Fernando Miles MD [address] [place] [phone] documented as of this encounter Visit Diagnoses Not on filedocumented in this encounter Care Teams Industrial Controller Relationship Specialty Start Date End Date System, Provider Not In PCP - General Clinic 08/12/14 07/13/16 documented as of this encounter
--- OUTSIDE RECORDS SUMMARY | 2021-12-13 12:43 | XMS_ITS | Encounter Summary ---
:1980 Author Organization [place] Address [address] [facility] [place] [address] Care Team Providers Name Role Phone System, Provider Not In Primary Care Provider Unavailable Reason for Visit Reason Onset Date Comments Medication Request 02/09/2015 buprenorphine (SUBUT EX) 8 MG SUBL Encounter Details Date Type Department Care Team Description 02/09/[address] [facility] Edgar Alfredo, [facility] ication Request Clinic Ashly VÁSQUEZ (buprenorphine [address] [place] (SUBUTEX) 8 MG SUBL) [address] [place] [phone] (Wo rk) Social History Tobacco Use Types Packs/Day Years Used Date Smoking Tobacco: Every Day Cigarettes 0.1 10 Smokeless Tobacco: Never Comments: 5 cigarettes a day Alcohol Use Standard Drinks/Week Comments No 0 (1 standard drink = 0.6 oz pure alcoho l) Sex Assigned at Date Recorded Female 01/14/2020 10:57 AM PARTS CONSULTANT documented as of this encounter Miscellaneous Notes Telephone Encounter - Edgar Alfredo MD - 02/09/2015 1:37 PM CST Not sure what this is about; had 28 day supply ordered 01/19/15 - should last until 02/16/15 Does not have an appointment ; may need a bridge S CONSULTANT Telephone Encounter - Suyapa Rodriguez CMA - 02/09/2015 12:08 PM PARTS CONSULTANT Pharmacy called, given vacation override to fill early. S CONSULTANT Telephone Encounter - Shayy Boles - 02/09/2015 11:44 AM CST Incoming call from patient requesting to speak with a nurse regarding her medication for buprenorphine (SUBUTEX) 8 MG SUBL. Patient states she was told by her pharmacy that they would need and ok from provider to get this medication refilled. Patient can be reached at [phone] Shayy Boles Team Driver/Merchandiser S CONSULTANT documented in this encounter Plan of Treatment Upcoming Encounters Date Type Specialty Care Team Description 12/20/2021 Office Visit Wound Care Luis Camara, [place] [address] [place] [address] (Wo rk) 01/21/2022 PRE VISIT Gastroenterology Landon Warren, *-*WANDAIN G RECORDS*-* MD Luis Fernando [address] [place] [phone] (Wo rk) 01/21/2022 Office Visit Gastroenterology Juanis Levi [address] [place] [phone] Luis Fernando Miles MD [address] [place] [address] documented as of this encounter Visit Diagnoses Not on filedocumented in this encounter Care Teams Site Auditor Relationship Specialty Start Date End Date System, Provider Not In PCP - General Clinic 08/12/14 07/13/16 documented as of this encounter
--- OUTSIDE RECORDS SUMMARY | 2021-12-13 12:43 | XMS_ITS | Encounter Summary ---
:1980 Author Organization [place] Address [address] [place] [address] Care Team Providers Name Role Phone System, Provider Not In Primary Care Provider Unavailable Reason for Visit Reason Onset Date Comments Clinic Care Coordination - Follow-up 08/12/2014 Encounter Details Date Type Department Care Team Description 08/12/2014 Telephone [facility] Vivian Duncan, Clinic Care Coordination Maternal Medicine RN - [facility] [address] [place] [address] Social History Tobacco Use Types Packs/Day Years Used Date Smoking Tobacco: Every Day Cigarettes 0.1 10 Smokeless Tobacco: Never Comments: 5 cigarettes a day Alcohol Use Standard Drinks/Week Comments No 0 (1 standard drink = 0.6 oz pure alcoho l) Sex Assigned at Date Recorded Female 01/14/2020 10:57 AM LEGAL RECORDS MANAGER documented as of this encounter Miscellaneous Notes Telephone Encounter - Vivian Duncan - 08/12/2014 4:06 PM CDT Patient had requested that a patient anesthesiologist and critical care from [facility] call her to answer some of her questions. Stephani expressed that the ultrasound that she had today at [facility] showed abnormalities of the heart. The patient sounded very anxious about this and asked for statistics on how babies do with similar findings, how to treat this, and what the worst case scenerio would be. This credit underwriter was unable to give her any information about these; there has been no formal diagnosis. Stephani has an appointment set up for August 24 for a echo, comprehensive ultrasound, and MFM consult at [facility]. Encouraged patient to write down questions that [...] Visit Wound Care Luis Camara, [place] [address] [place] [address] (Wo rk) 01/21/2022 PRE VISIT Gastroenterology Landon Warren, *-*WANDAIN G RECORDS*-* MD Luis Fernando [address] [place] [phone] (Wo rk) 01/21/2022 Office Visit Gastroenterology Juanis Levi [address] [place] [phone] Luis Fernando Miles MD [address] [place] [address] documented as of this encounter Visit Diagnoses Not on filedocumented in this encounter Care Teams Trench Shovel Operator Relationship Specialty Start Date End Date System, Provider Not In PCP - General Clinic 08/12/14 07/13/16 documented as of this encounter
--- OUTSIDE RECORDS SUMMARY | 2021-12-13 12:43 | XMS_ITS | Encounter Summary ---
:1980 Author Organization [place] Address [address] [facility] [place] [address] Care Team Providers Name Role Phone System, Provider Not In Primary Care Provider Unavailable Reason for Visit - Closed Specialty Diagnoses / Procedures Referred By Contact Refer red To Contact Diagnoses Unspecified complication of , antepartum Breanna Coleman MD [address] [place] [phone] Referral ID Status Reason Start Date Expiration Date Visits Requ ested Visits Authorized [id number] Closed 08/24/2014 08/24/2015 1 1 Encounter Details Date Type Department Care Team Description 08/24/2014 Office Visit [facility] Breanna Coleman MD [address] [place] [address] Unspecified Maternal Goldie Edwards GC [address] [place] [address] complication of Medicine Center , a ntepartum [place] [address] [place], [place] [address] Social History Tobacco Use Types Packs/Day Years Used Date Smoking Tobacco: Every Day Cigarettes 0.1 10 Smokeless Tobacco: Never Comments: 5 cigarettes a day Alcohol Use Standard Drinks/Week Comments No 0 (1 standard drink = 0.6 oz pure alcoho l) Sex Assigned at Date Recorded Female 01/14/2020 10:57 AM MENTAL HEALTH ADVANCED PRACTICE NURSE documented as of this encounter Progress Notes [...] Time spent: 10 min Goldie Edwards MS, [facility] Certified Genetic Counselor [phone] documented in this encounter Plan of Treatment Upcoming Encounters Date Type Specialty Care Team Description 12/20/2021 Office Visit Wound Care Luis Camara, [place] [address] [place] [address] (Wo rk) 01/21/2022 PRE VISIT Gastroenterology Landon Warren, *-*HEATHER Barriga RECORDS*-* MD Luis Fernando [address] [place] [phone] (Wo rk) 01/21/2022 Office Visit Gastroenterology Juanis Levi [address] [place] [phone] Luis Fernando Miles MD [address] [place] [phone] documented as of this encounter Visit Diagnoses Diagnosis Unspecified complication of , a ntepartum documented in this encounter Care Teams Public Health Advisor Relationship Specialty Start Date End Date System, Provider Not In PCP - General Clinic 08/12/14 07/13/16 documented as of this encounter
--- OUTSIDE RECORDS SUMMARY | 2021-12-13 12:43 | XMS_ITS | Encounter Summary ---
:1980 Author Organization [place] Address [address] [place] [address] Care Team Providers Name Role Phone System, Provider Not In Primary Care Provider Unavailable Reason for Visit Reason Onset Date Comments Call Back 02/13/2015 Encounter Details Date Type Department Care Team Description 02/13/2015 Telephone [facility] Nithya Alfredo MD Call Back [place] [address] [facility] [address] [place], [place] [address] [phone] [place] [phone] Social History Tobacco Use Types Packs/Day Years Used Date Smoking Tobacco: Every Day Cigarettes 0.1 10 Smokeless Tobacco: Never Comments: 5 cigarettes a day Alcohol Use Standard Drinks/Week Comments No 0 (1 standard drink = 0.6 oz pure alcoho l) Sex Assigned at Date Recorded Female 01/14/2020 10:57 AM CIGARETTE TESTER documented as of this encounter Miscellaneous Notes Addendum Note - Suyapa Murray CMA - 02/16/2015 9:57 AM CIGARETTE TESTER Addended by: SUYAPA MURRAY on: 02/16/2015 09:57 AM Modules accepted: Orders, Medications RETTE TESTER Telephone Encounter - Suyapa Murray CMA - 02/13/2015 2:34 PM CST Talked to patient, made appt for 03/02 at 3pm, I will called in Rx on . Told she needs to make this last until her next visit. RETTE TESTER Telephone Encounter - Suyapa Murrya CMA - 02/13/2015 1:27 PM CST Response from Dr. Alfredo: OK to call in a bridge until 03/02; Subutex 8 mg #11, 1.5 per day. Needs to make this last until 03/02 as we do not replace lost meds Left VM message for pt to call me back. Suyapa Murray, BRADLY, DON RETTE TESTER Telephone Encounter - Suyapa Murray CMA - 02/13/2015 11:29 AM CIGARETTE TESTER Message E-mailed to Dr. Alfredo, awaiting response: Patient called, will run out of meds by 02/20/15, should have enough to 02/23/15, she doesn't know why she's short, baby still in Hospital, so been going there a lot. No appt yet, first available . 03/02 (just one slot at the moment). Do you want to call in a bridge or squeeze her in somewhere? RETTE TESTER Addendum Note - Nora Scott - 02/13/2015 10:45 AM CIGARETTE TESTER Addended by: NORA SCOTT on: 02/13/2015 10:45 AM Modules accepted: Orders RETTE TESTER Telephone Encounter - Nora Scott - 02/13/2015 10:33 AM CST Pt returned call, pt is requesting to see on 02/20/15 because she states she will be out of medication by then. Supervisor Spring Up stated was full that day, but production underwriter would send a message over to to see when he can see the patient and if he's willing to do a bridge of medication until that day. Pt states if a bridge is called in she would like to use the [facility] in [place], [place]. Pt can be reached at [phone]. Nora Scott Team Human Resources Associate RETTE TESTER Telephone Encounter - Nora Scott - 02/13/2015 10:25 AM CST Pt called and LVM on 02/09/15 requesting a call back from 's nurse. Supervisor Spring Up attempted to call patient back on 02/13/15 to find out more details, but no answer. LVM asking patient to call the clinic back with any questions she may have. Nora Scott Team Human Resources Associate RETTE TESTER documented in this encounter Plan of Treatment Upcoming Encounters Date Type Specialty Care Team Description 12/20/2021 Office Visit Wound Care Luis Camara, [place] [address] [place], [place] [phone] (Wo rk) 01/21/2022 PRE VISIT Gastroenterology Landon Warren, *-*HEATHER G RECORDS*-* MD Luis Fernando [address] [place] [phone] (Wo rk) 01/21/2022 Office Visit Gastroenterology Juanis Levi [address] [place] [phone] Luis Fernando Miles MD [address] [place] [phone] documented as of this encounter Visit Diagnoses Diagnosis Uncomplicated opioid dependence (H) - Pr imary Opioid type dependence, unspecified documented in this encounter Care Teams Rejected Items Clerk Relationship Specialty Start Date End Date System, Provider Not In PCP - General Clinic 08/12/14 07/13/16 documented as of this encounter
--- OUTSIDE RECORDS SUMMARY | 2021-12-13 12:43 | XMS_ITS | Encounter Summary ---
:1980 Author Organization [place] Address [address] [facility] [place] [address] Care Team Providers Name Role Phone System, Provider Not In Primary Care Provider Unavailable Reason for Visit Reason Comments Recheck Medication Encounter Details Date Type Department Care Team Description 08/25/[address] [facility] Edgar Alfredoplic ated opioid dependence (H) (Primary Dx); Clinic Ashly Gauthier MD Opiate dependence (H) [address] [place] [address] [place] [phone] Social History Tobacco Use Types Packs/Day Years Used Date Smoking Tobacco: Every Day Cigarettes 0.1 10 Smokeless Tobacco: Never Comments: 5 cigarettes a day Alcohol Use Standard Drinks/Week Comments No 0 (1 standard drink = 0.6 oz pure alcoho l) Sex Assigned at Date Recorded Female 01/14/2020 10:57 AM BULK PICKER documented as of this encounter Last [...] Take 1 tablet by mouth daily ??? Uwfymcbw-Pri-Hz-FA ( VITAMINS) 0.8 MG TABS Take 1 [...] in 1 MONTH Edgar Alfredo MD, MD [facility] documented [...] Visit Wound Care Luis Camara, [place] [address] [place], [place] [phone] (Wo rk) 01/21/2022 PRE VISIT Gastroenterology Landon Warren, *-*WANDAIN G RECORDS*-* MD Luis Fernando [address] [place], [place] [address]B [address] [place], [place] [phone] (Wo rk) 01/21/2022 Office Visit Gastroenterology Juanis Levi [address] [place] [phone] Luis Fernando Miles MD [address] [facility] [address] [place] [address] documented as of this encounter Procedures Procedure [...] Organization Address City/State/[place] [address] [facility] Building [address] [...] Organization Address City/State/[place] [address] [facility] Building [address] LAB documented in this encounter Visit Diagnoses Diagnosis Uncomplicated opioid dependence (H) - Pr imary Opioid type dependence, unspecified documented in this encounter Care Teams Effervescent Salts Compounder Relationship Specialty Start Date End Date System, Provider Not In PCP - General Clinic 08/12/14 07/13/16 documented as of this encounter
--- OUTSIDE RECORDS SUMMARY | 2021-12-13 12:43 | XMS_ITS | Encounter Summary ---
:1980 Author Organization [place] Address [address] [place] [address] Care Team Providers Name Role Phone System, Provider Not In Primary Care Provider Unavailable Reason for Visit Reason Onset Date Comments Call Back 12/12/2014 Encounter Details Date Type Department Care Team Description 12/12/2014 Telephone [facility] Nithya Alfredo MD Call Back [place] [address] [facility] [address] [place], [place] [address] [phone] [place] [address] [phone] Social History Tobacco Use Types Packs/Day Years Used Date Smoking Tobacco: Every Day Cigarettes 0.1 10 Smokeless Tobacco: Never Comments: 5 cigarettes a day Alcohol Use Standard Drinks/Week Comments No 0 (1 standard drink = 0.6 oz pure alcoho l) Sex Assigned at Date Recorded Female 01/14/2020 10:57 AM TRANSFORMATION CONSULTANT documented as of this encounter Miscellaneous [...] was regarding please call pt back at [phone] Vivian Spence, [facility] Lead Applications Developer documented in this encounter Plan of Treatment Upcoming Encounters Date Type Specialty Care Team Description 12/20/2021 Office Visit Wound Care Luis Camara, [place] [address] [place], [place] [address] (Wo rk) 01/21/2022 PRE VISIT Gastroenterology Landon Warren, *-*WANDAIN G RECORDS*-* MD Luis Fernando [address] [place] [phone] (Wo rk) 01/21/2022 Office Visit Gastroenterology Juanis Levi [address] [place] [phone] Luis Fernando Miles MD [address] [place] [phone] documented as of this encounter Visit Diagnoses Not on filedocumented in this encounter Care Teams Grounds Maintenance Supervisor Relationship Specialty Start Date End Date System, Provider Not In PCP - General Clinic 08/12/14 07/13/16 documented as of this encounter
--- OUTSIDE RECORDS SUMMARY | 2021-12-13 12:43 | XMS_ITS | Encounter Summary ---
:1980 Author Organization [place] Address [address] [facility] [place] [address] Care Team Providers Name Role Phone System, Provider Not In Primary Care Provider Unavailable Reason for Visit Reason Comments Recheck Medication Encounter Details Date Type Department Care Team Description 01/19/2015 Office Visit [facility] Edgar Alfredoplic ated opioid dependence (H) (Primary Dx); Clinic Ashly Gauthier MD Major depressive disorder, recurrent epi sode, moderate (H) [address] [address] [place] [phone] Social History Tobacco Use Types Packs/Day Years Used Date Smoking Tobacco: Every Day Cigarettes 0.1 10 Smokeless Tobacco: Never Comments: 5 cigarettes a day Alcohol Use Standard Drinks/Week Comments No 0 (1 standard drink = 0.6 oz pure alcoho l) Sex Assigned at Date Recorded Female 01/14/2020 10:57 AM CAN FILLING 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 documented as of this encounter Last Filed Vital Signs Vital Sign Reading Time Taken Comments Blood Pressure 132/85 01/19/2015 10:35 AM CAN FILLING 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 Pulse 112 01/19/2015 10:35 AM CAN FILLING 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 Temperature - - Respiratory Rate - - [...] Take 1 tablet by mouth daily ??? Jibzgxxh-Cfz-Ai-FA ( VITAMINS) 0.8 MG TABS Take 1 [...] in 5 WEEKS Edgar Alfredo MD, MD [facility] FILLING 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 documented in this encounter Nursing Notes Suyapa Rodriguez, CLINICAL LABORATORY SERVICE TEACHER - 01/19/2015 10:36 AM CST Chief Complaint Patient presents with ??? Recheck Medication Initial BP 132/85 mmHg Pulse 112 Estimated body mass index is 30.96 kg/(m^2) as calculated from the following: Height as of 01/07/13: 5' 5.5 (1.664 m). Weight as of 07/28/14: 189 lb (85.73 kg). BP completed using cuff size: miguelangel Rodriguez MLT, DON FILLING MACHINE OPERATOR documented in this encounter Plan of Treatment Upcoming Encounters Date Type Specialty Care Team Description 12/20/2021 Office Visit Wound Care [place] Luis Lex, DPM [address] [place], [place] [phone] (Wo rk) 01/21/2022 PRE VISIT Gastroenterology Landon Warren, *-*WANDAIN G RECORDS*-* MD Luis Fernando [address] [address] (Wo rk) 01/21/2022 Office Visit Gastroenterology Juanis Levi [address] [place] [address] Luis Fernando Miles MD [address] [address] documented as of this encounter Procedures Procedure Name Priority Date/Time Associated Diagnosis Comme nts BUPRENORPHINE QUAL Routine 01/19/2015 10:26 Uncomplicated opio id Results for this URINE AM CAN FILLING MACHINE OPERATOR dependence (H) procedure are in the results section. DRUG ABUSE SCREEN Routine 01/19/2015 10:26 Uncomplicated opioi d Results for this (NL, RW) AM CAN FILLING MACHINE OPERATOR dependence (H) procedure are in the results section. documented in this encounter Results Buprenorphine Qual Urine (01/19/2015 10:26 AM CAN FILLING MACHINE OPERATOR) [facility] gist Method Time Signature Buprenorphine Positive [facility] LAB Qual Urine Specimen Anatomical Collection Method Collection Time Receive d Time (Source) Location / / Volume Laterality Urine specimen 01/19/2015 10:26 5 (specimen) AM CAN FILLING MACHINE OPERATOR 10:32 AM CAN FILLING MACHINE OPERATOR Edgar Alfredo MD LAB - URINE ORDERABLES Performing Organization Address City/State/[place] [address] [facility] Building [address] [facility] LAB Drug abuse screen (NL, RW) (01/19/2015 10:26 AM CAN FILLING MACHINE OPERATOR) Component Value Ref Test Analysis [...] Urine specimen 01/19/2015 10:26 5 (specimen) AM CAN FILLING MACHINE OPERATOR 10:32 AM CAN FILLING MACHINE OPERATOR Edgar Alfredo MD LAB - URINE ORDERABLES Performing Organization Address City/State/[facility] [place] [address] [facility] Building [address] [facility] LAB documented in this encounter Visit Diagnoses Diagnosis Uncomplicated opioid dependence (H) - Pr imary Opioid type dependence, unspecified Major depressive disorder, recurrent epi sode, moderate (H) Major depressive disorder, recurrent epi sode, moderate documented in this encounter Care Teams Computer Technology Teacher Relationship Specialty Start Date End Date System, Provider Not In PCP - General Clinic 08/12/14 07/13/16 documented as of this encounter
--- OUTSIDE RECORDS SUMMARY | 2021-12-13 12:43 | XMS_ITS | Encounter Summary ---
:1980 Author Organization [place] Address [address] [place] [address] Care Team Providers Name Role Phone System, Provider Not In Primary Care Provider Unavailable Reason for Referral - Closed Specialty Diagnoses / Procedures Referred By Contact Refer red To Contact Diagnoses Unspecified complication of , antepartum Breanna Coleman MD [address] [place], [place] [address] Referral ID Status Reason Start Date Expiration Date Visits Requ ested Visits Authorized [id number] Closed 08/24/2014 08/24/2015 1 1 Reason for Visit Reason Comments Ultrasound Encounter Details Date Type Department Care Team Description 08/24/2014 Orders Only [facility] Breanna Coleman Unspecifi ed complication of , antepartum (Primary Dx); Maternal MD Julian Abnormal heart rate or rhythm Medicine Center [address] [place], [place] [address] [address] [place], [place] [address] [phone] Social History Tobacco Use Types Packs/Day Years Used Date Smoking Tobacco: Every Day Cigarettes 0.1 10 Smokeless Tobacco: Never Comments: 5 cigarettes a day Alcohol Use Standard Drinks/Week Comments No 0 (1 standard drink = 0.6 oz pure alcoho l) Sex Assigned at Date Recorded Female 01/14/2020 10:57 AM STONE OPERATOR documented as of this encounter Progress Notes Janeen Ruiz MD - 08/24/2014 3:24 PM CDT Cardiology Consult Date of Visit: 08/24/2014 Gestational Age: 24 weeks Due Date: 12/13/2014 Delivery: [facility] Dear I had the opportunity to meet [...] weeks of GA. Plan to deliver ar [facility], expecting a full term delivery. Obtain cardiology consult, transthoracic Echo after . Start PGE 1 immediatley at . Thank you for allowing me to participate in Stephani's care. Feel free to contact me with questions. Vfhu-du-nduv counseling time was [address] Janeen Ruiz Cupola Operator Insulation Director, Cardiology [facility] documented in this encounter Plan of Treatment Upcoming Encounters Date Type Specialty Care Team Description 12/20/2021 Office Visit Wound Care Luis Camara DPM [address] [place] [address] (Reinaldo molina) 01/21/2022 PRE VISIT Gastroenterology Landon Warren, *-*WANDAIN G RECORDS*-* MD Luis Fernando [address] [address] (Wo rk) 01/21/2022 Office Visit Gastroenterology Juanis Levi [address] [place] [address] Luis Fernando Miles MD 516 [facility] [address] [place] [address] Scheduled Referrals Name Type Priority Associated Diagnoses Order S erendira [facility] Genetic Counseling Referral Routine Unspecified 1 Occ urrences starting complication of 08/24/2014 u ntil , antepartum 2015 documented as of this encounter Visit Diagnoses Diagnosis Unspecified complication of , a ntepartum - Primary Abnormal heart rate or rhythm Abnormality in heart rate or rhyth m, unspecified as to time of onset documented in this encounter Care Teams Sharepoint Analyst Relationship Specialty Start Date End Date System, Provider Not In PCP - General Clinic 08/12/14 07/13/16 documented as of this encounter
--- OUTSIDE RECORDS SUMMARY | 2021-12-13 12:43 | XMS_ITS | Encounter Summary ---
:1980 Author Organization [place] Address [address] [facility] [place] [address] Care Team Providers Name Role Phone System, Provider Not In Primary Care Provider Unavailable Reason for Visit Reason Onset Date Comments Clinic Care Coordination - Follow-up 10/06/2014 Encounter Details Date Type Department Care Team Description 10/06/2014 Telephone [facility] Breanna Coleman Clinic Ca re Coordination Maternal Medicine MD Julian - Follow-up Center [place] [address] [place], [place] [phone] Social History Tobacco Use Types Packs/Day Years Used Date Smoking Tobacco: Every Day Cigarettes 0.1 10 Smokeless Tobacco: Never Comments: 5 cigarettes a day Alcohol Use Standard Drinks/Week Comments No 0 (1 standard drink = 0.6 oz pure alcoho l) Sex Assigned at Date Recorded Female 01/14/2020 10:57 AM ROLLED HAM LACER documented as of this encounter Miscellaneous Notes Telephone Encounter - Breanna Coleman MD - 10/06/2014 5:34 PM CDT After discussion with the father of the , Stephani has decided that she will transfer care to [facility]. We will forward her records to [facility] and anticipate that they will bein touch with her to arrange for ultrasound, echo and to establish OB care in the next couple of days. Breanna Coleman MD Maternal- Medicine & Clinical Genetics October 06, 2014 documented in this encounter Plan of Treatment Upcoming Encounters Date Type Specialty Care Team Description 12/20/2021 Office Visit Wound Care Luis Camara, DPM [address] [place] [address] (Wo rk) 01/21/2022 PRE VISIT Gastroenterology Landon Warren, *-*HEATHER G RECORDS*-* MD Luis Fernando [address] [address] (Wo rk) 01/21/2022 Office Visit Gastroenterology Juanis Levi [address] [place] [phone] Luis Fernando Miles MD [address] [place] [address] documented as of this encounter Visit Diagnoses Not on filedocumented in this encounter Care Teams Colon And Rectal Surgeon Relationship Specialty Start Date End Date System, Provider Not In PCP - General Clinic 08/12/14 07/13/16 documented as of this encounter
--- OUTSIDE RECORDS SUMMARY | 2021-12-13 12:43 | XMS_ITS | Encounter Summary ---
:1980 Author Organization [place] Address [address] [place] [address] Care Team Providers Name Role Phone System, Provider Not In Primary Care Provider Unavailable Reason for Visit Reason Comments Recheck Medication Encounter Details Date Type Department Care Team Description 11/03/2014 Office Visit [facility] Edgar Alfredoplic ated opioid dependence (H) (Primary Dx); Clinic Ashly Gauthier MD Opiate dependence (H) [address] [place] [phone] Social History Tobacco Use Types Packs/Day Years Used Date Smoking Tobacco: Every Day Cigarettes 0.1 10 Smokeless Tobacco: Never Comments: 5 cigarettes a day Alcohol Use Standard Drinks/Week Comments No 0 (1 standard drink = 0.6 oz pure alcoho l) Sex Assigned at Date Recorded Female 01/14/2020 10:57 AM GROUND CREW LINES PERSON documented as of this encounter Last [...] Take 1 tablet by mouth daily ??? Bjrxxpyz-Tnj-Dk-FA ( VITAMINS) 0.8 MG TABS Take 1 [...] list, Allergies, and Medical/Social/Surgical histories reviewed in [facility] andupdated as appropriate. ROS: [...] in 1 MONTH Edgar Alfredo MD, MD [facility] [...] Visit Wound Care Luis Camara DPM [address] [place] [address] (Wo rk) 01/21/2022 PRE VISIT Gastroenterology Landon Warren, *-*HEATHER Barriga RECORDS*-* MD Luis Fernando [address] [facility] [place] [address] (Wo rk) 01/21/2022 Office Visit Gastroenterology Juanis Levi [address] [place] [phone] Luis Fernando Miles MD [address] [facility] [place], [place] [address] documented as of this encounter Procedures Procedure [...] Organization Address City/State/[place] [address] [facility] Building [address] [facility] [address] [facility] LAB Drug abuse screen (NL, RW) (11/03/2014 [...] Organization Address City/State/[place] [address] [facility] [address] [facility] LAB documented in this encounter Visit Diagnoses Diagnosis Uncomplicated opioid dependence (H) - Pr imary Opioid type dependence, unspecified documented in this encounter Care Teams Brim Molder Relationship Specialty Start Date End Date System, Provider Not In PCP - General Clinic 08/12/14 07/13/16 documented as of this encounter
--- OUTSIDE RECORDS SUMMARY | 2021-12-13 12:43 | XMS_ITS | Encounter Summary ---
:1980 Author Organization [place] Address [address] [facility] [place] [address] Care Team Providers Name Role Phone System, Provider Not In Primary Care Provider Unavailable Reason for Visit Reason Comments Recheck Medication Encounter Details Date Type Department Care Team Description 10/13/2014 Office Visit [facility] Edgar Alfredoplic ated opioid dependence (H) (Primary Dx); Clinic Ashly Gauthier MD Opiate dependence (H) [address] [place] [phone] Social History Tobacco Use Types Packs/Day Years Used Date Smoking Tobacco: Every Day Cigarettes 0.1 10 Smokeless Tobacco: Never Comments: 5 cigarettes a day Alcohol Use Standard Drinks/Week Comments No 0 (1 standard drink = 0.6 oz pure alcoho l) Sex Assigned at Date Recorded Female 01/14/2020 10:57 AM COMMISSIONER OF INTERNAL REVENUE documented as of this encounter Last Filed [...] followup WILL BE SWITCHING OB COVERAGE TO [employer] [place] BABY WILL HAVE HEART SURGERY ON [...] Take 1 tablet by mouth daily ??? Yvnuxtyh-Wnn-Fq-FA ( VITAMINS) 0.8 MG TABS Take 1 [...] list, Allergies, and Medical/Social/Surgical histories reviewed in [facility] andupdated as appropriate. ROS: Constitutional, HEENT, [...] in 1 MONTH Edgar Alfredo MD, MD [facility] documented in this [...] Visit Wound Care Luis Camara DPM [address] [place] [address] (Wo rk) 01/21/2022 PRE VISIT Gastroenterology Landon Warren, *-*HEATHER Barriga RECORDS*-* MD Luis Fernando [address] [facility] [place] [address] (Wo rk) 01/21/2022 Office Visit Gastroenterology Juanis Levi [address] [place] [phone] Luis Fernando Miles MD [address] [facility] [address] [place], [place] [phone] documented as of this encounter Procedures Procedure [...] Organization Address City/State/[place] [address] [facility] Building [address] [facility] [address] [facility] LAB Drug [...] - URINE ORDERABLES Performing Organization Address City/State/[facility] [place] [address] [facility] Building [address] LAB documented in this encounter Visit Diagnoses Diagnosis Uncomplicated opioid dependence (H) - Pr imary Opioid type dependence, unspecified documented in this encounter Care Teams Treating Plant Pumper Relationship Specialty Start Date End Date System, Provider Not In PCP - General Clinic 08/12/14 07/13/16 documented as of this encounter
--- OUTSIDE RECORDS SUMMARY | 2021-12-13 12:43 | XMS_ITS | Encounter Summary ---
:1980 Author Organization [place] Address [address] [place] [address] Care Team Providers Name Role Phone System, Provider Not In Primary Care Provider Unavailable Reason for Visit Reason Onset Date Comments Medication Request 12/19/2014 medication bridge Encounter Details Date Type Department Care Team Description 12/19/2014 Telephone [facility] Edgar Alfredo, [facility] ication Request Clinic Ashly VÁSQUEZ (medication bridge) [address] [place] [address] [place] [phone] (Wo rk) Social History Tobacco Use Types Packs/Day Years Used Date Smoking Tobacco: Every Day Cigarettes 0.1 10 Smokeless Tobacco: Never Comments: 5 cigarettes a day Alcohol Use Standard Drinks/Week Comments No 0 (1 standard drink = 0.6 oz pure alcoho l) Sex Assigned at Date Recorded Female 01/14/2020 10:57 AM TOE LASTER documented as of this encounter Miscellaneous Notes Telephone Encounter - Edgar Alfredo MD - 12/20/2014 12:17 PM CST Bridge ordered LASTER Telephone Encounter - Nora Scott - 12/20/2014 11:36 AM CST Patient called back to check on status of message below. She is requesting a call back. Nora Scott Team Metal Washing Machine Operator LASTER Telephone Encounter - Shayy Boles - 12/19/2014 3:41 PM CST Incoming call from patient requesting a bridge for her subutex medication until her next apt on 12/26/14. Patient can be reached at [phone] with any questions Shayy Boles Team Metal Washing Machine Operator LASTER documented in this encounter Plan of Treatment Upcoming Encounters Date Type Specialty Care Team Description 12/20/2021 Office Visit Wound Care Luis Camara, [place] [address] [place] [address] (Wo rk) 01/21/2022 PRE VISIT Gastroenterology Landon Warren, *-*INCOMIN G RECORDS*-* MD Luis Fernando [address] [place] [address] (Wo rk) 01/21/2022 Office Visit Gastroenterology Juanis Levi [address] [place] [phone] Luis Fernando Miles MD [address] [place] [address] documented as of this encounter Visit Diagnoses Diagnosis Uncomplicated opioid dependence (H) - Pr imary Opioid type dependence, unspecified documented in this encounter Care Teams Sheet Metal Duct Installer Apprentice Relationship Specialty Start Date End Date System, Provider Not In PCP - General Clinic 08/12/14 07/13/16 documented as of this encounter
--- OUTSIDE RECORDS SUMMARY | 2021-12-13 12:43 | XMS_ITS | Encounter Summary ---
:1980 Author Organization [place] Address [address] [facility] [place] [address] Care Team Providers Name Role Phone System, Provider Not In Primary Care Provider Unavailable Reason for Visit Reason Comments Recheck Medication Encounter Details Date Type Department Care Team Description 03/02/2015 Office Visit [facility] Edgar Alfredo Uncomplic ated opioid Clinic Ashly Gauthier MD dependence (H) (Primary [address] Dx) [address] [place] [phone] Social History Tobacco Use Types Packs/Day Years Used Date Smoking Tobacco: Every Day Cigarettes 0.1 10 Smokeless Tobacco: Never Comments: 5 cigarettes a day Alcohol Use Standard Drinks/Week Comments No 0 (1 standard drink = 0.6 oz pure alcoho l) Sex Assigned at Date Recorded Female 01/14/2020 10:57 AM WATER RESTORATION TECHNICIAN documented as of this encounter Last Filed Vital Signs Vital Sign Reading Time Taken Comments Blood Pressure 133/87 03/02/2015 3:15 PM WATER RESTORATION TECHNICIAN Pulse 86 03/02/2015 3:15 PM WATER RESTORATION TECHNICIAN Temperature - - Respiratory Rate - [...] health issues: Suboxone followup Child discharged from [facility] now at home On subutex: [...] Take 1 tablet by mouth daily ??? Abcsravg-Vse-Sj-FA ( VITAMINS) 0.8 MG TABS Take 1 tablet by mouth daily 30 tablet 6 ??? [DISCONTINUED] VITAMINS PO Take by mouth. ??? Cholecalciferol (VITAMIN D) 2000 UNITS tablet Take 2,000 Units by mouth daily. 100 tablet 3 No Known Allergies Problem list, Medication list, Allergies, and Medical/Social/Surgical histories reviewed in [facility] andupdated as appropriate. ROS: Constitutional, [...] NECESSARY Edgar Alfredo M.D. Edgar Alfredo MD [facility] R RESTORATION TECHNICIAN documented in this encounter Nursing Notes [...] using cuff size: catalino Rodriguez MLT, CMA R RESTORATION TECHNICIAN documented in this encounter Plan of Treatment Upcoming Encounters Date Type Specialty Care Team Description 12/20/2021 Office Visit Wound Care Luis Camara DPM [address] [place] [address] (Wo rk) 01/21/2022 PRE VISIT Gastroenterology Landon Warren, *-*HEATHER G RECORDS*-* MD Luis Fernando [address] [address] (Wo rk) 01/21/2022 Office Visit Gastroenterology Juanis Levi [address] [place] [phone] Luis Fernando Miles MD [address] [facility] [address] [place], [place] [phone] documented as of this encounter Procedures Procedure Name Priority Date/Time Associated Diagnosis Comme nts BUPRENORPHINE QUAL Routine 03/02/2015 2:59 Uncomplicated opioi d Results for this URINE PM WATER RESTORATION TECHNICIAN dependence (H) procedure are in the results section. DRUG ABUSE SCREEN Routine 03/02/2015 2:59 Uncomplicated opioid Results for this (NL, RW) PM WATER RESTORATION TECHNICIAN dependence (H) procedure are in the results section. documented in this encounter Results Buprenorphine Qual Urine (03/02/2015 2:59 PM WATER RESTORATION TECHNICIAN) Patholo gist Method Time Signature Buprenorphine Positive [facility] LAB Qual Urine Specimen Anatomical Collection Method Collection Time Receive d Time (Source) Location / / Volume Laterality Urine specimen 03/02/2015 2:59 PM 016 3:05 (specimen) WATER RESTORATION TECHNICIAN PM WATER RESTORATION TECHNICIAN Edgar Alfredo MD LAB - URINE ORDERABLES Performing Organization Address City/State/ZIP [place] [address] [facility] Building [address] [facility] [address] [facility] LAB Drug abuse screen (NL, RW) (03/02/2015 2:59 PM WATER RESTORATION TECHNICIAN) Component Value Ref Test Analysis Performed [...] specimen 03/02/2015 2:59 PM 016 3:05 (specimen) WATER RESTORATION TECHNICIAN PM WATER RESTORATION TECHNICIAN Edgar Alfredo MD LAB - URINE ORDERABLES Performing Organization Address City/State/ZIP [place] [address] [facility] [address] [address] [facility] LAB documented in this encounter Visit Diagnoses Diagnosis Uncomplicated opioid dependence (H) - Pr imary Opioid type dependence, unspecified documented in this encounter Care Teams Application Integration Architect Relationship Specialty Start Date End Date System, Provider Not In PCP - General Clinic 08/12/14 07/13/16 documented as of this encounter
--- OUTSIDE RECORDS SUMMARY | 2021-12-13 12:43 | XMS_ITS | Encounter Summary ---
:1980 Author Organization [place] Address [address] [facility] [place] [address] Care Team Providers Name Role Phone Edgar Alfredo MD Primary Care Provider Reason for Visit Reason Comments Recheck Medication Encounter Details Date Type Department Care Team Description 07/28/2014 Office Visit [facility] Edgar Alfredo Uncomplic ated opioid dependence (H) (Primary Dx); Clinic Ashly Gauthier MD Opiate dependence (H) [address] [place] [phone] Social History Tobacco Use Types Packs/Day Years Used Date Smoking Tobacco: Every Day Cigarettes 0.1 10 Smokeless Tobacco: Never Comments: 5 cigarettes a day Alcohol Use Standard Drinks/Week Comments No 0 (1 standard drink = 0.6 oz pure alcoho l) Sex Assigned at Date Recorded Female 01/14/2020 10:57 AM MACHINE PULLER documented as of this encounter Last Filed [...] Body Mass Index 30.97 01/07/2013 11:29 AM MACHINE PULLER documented in this encounter Progress Notes Edgar [...] Recovery program has been: ignored. GOES TO [place] BUT WOULD BENEFIT FROM A MORE ACTIVE [...] recovery meetings:not at all. BUT HAS A ALEVISM ?? Problem list and histories reviewed & [...] Take 1 tablet by mouth daily ??? Renzvyxu-Rqd-Xv-FA ( VITAMINS) 0.8 MG TABS Take 1 [...] Allergies, and Medical/Social/Surgical histories reviewed in [facility] andupdated as appropriate. ROS: Constitutional, HEENT, [...] in 1 month Edgar Alfredo MD, MD [facility] documented in this [...] Office Visit Wound Care Luis Camara DPM [address] [place] [address] (Wo rk) 01/21/2022 PRE VISIT Gastroenterology Landon Warren, *-*WANDAIN G RECORDS*-* MD Luis Fernando [address] [facility] [address] [place], [place] [address] (Wo rk) 01/21/2022 Office Visit Gastroenterology Juanis Levi [address] [place] [phone] Luis Fernando Miles MD [address] [place] [phone] documented as of this encounter Procedures Procedure [...] Organization Address City/State/[place] [address] [facility] Building [address] [...] Organization Address City/State/[place] [address] [facility] [address] [facility] LAB documented in this encounter Visit Diagnoses Diagnosis Uncomplicated opioid dependence (H) - Pr imary Opioid type dependence, unspecified documented in this encounter Care Teams Picker Relationship Specialty Start Date End Date Edgar Alfredo MD PCP - General Family Practice 04/13/12 08/11/[address] [place] [address] documented as of this encounter
--- OUTSIDE RECORDS SUMMARY | 2021-12-13 12:43 | XMS_ITS | Encounter Summary ---
:1980 Author Organization [place] Address [address] [facility] [place] [address] Care Team Providers Name Role Phone System, Provider Not In Primary Care Provider Unavailable Encounter Details Date Type Department Care Team Description 08/24/2014 Hospital Encounter [facility] Breanna Coleman Pre gnancy, Maternal MD Julian [facility] [address] [place], [place] [address] [address] [place], [place] [phone] (Work) [phone] Social History Tobacco Use Types Packs/Day Years Used Date Smoking Tobacco: Every Day Cigarettes 0.1 10 Smokeless Tobacco: Never Comments: 5 cigarettes a day Alcohol Use Standard Drinks/Week Comments No 0 (1 standard drink = 0.6 oz pure alcoho l) Sex Assigned at Date Recorded Female 01/14/2020 10:57 AM REFINERY OPERATOR LIGHT ENDS RECOVERY documented as of this encounter Medications at [...] by 30 tablet 6 12/10/2012 08/30/19 17 Vmkzqgvl-Zxi-Ld-FA mouth daily ( VITAMINS) 0.8 MG TABSIndications: [...] Visit Wound Care Luis Camara DPM [address] [place] [address] (Wo rk) 01/21/2022 PRE VISIT Gastroenterology Landon Warren, *-*INCOMIN G RECORDS*-* MD Luis Fernando [address] [place] [phone] (Wo rk) 01/21/2022 Office Visit Gastroenterology Juanis Levi [address] [place] [phone] Luis Fernando Miles MD [address] [place] [phone] documented as of this encounter Procedures Procedure Name Priority Date/Time Associated Comments Diagnosis [facility] COMPREHENSIVE Routine 08/24/2014 11:29 , Res ults for this SINGLE AM CDT incidental procedure are i n the results section. documented in this encounter Results [facility] Comprehensive Single (08/24/2014 11:29 AM [...] MCCORMICK Study Date: 08/24 10:55am Pat. NO: [id number] Referring ??MD: KATY ROCHE Site: [facility] Facilities Specialist: Carlos Gordon RDMS : 1980 Age: 35 [...] 79.2 ?mm ? 24w 0d ? Nicolaides ?220.9 ?mm ?24w 1d ? [place]lock AC [...] (HC-AC-FL) Head / Face / Neck Biometry: Therapeutic Activities Services Worker ?7.9 ?mm ? Nasal bone ?7.2 ?mm [...] that delivery will need to be at [facility] where NICU and Pediatric Cardiology as [...] this patient and /or family members. Approximate dskf-gh-jpdd time was 30 min utes. Procedure Note Breanna Coleman MD - 09/10/2016Format ting of this note might be different from the original. Comprehensive Pat. Name:Elizabeth MCCORMICK Date:08/25/19 15 10:55am Pat. NO: [id number] MD:YURIDIA ROCHE [facility] Gordon RDMS :1980Age:35 INDICATION Congenital [...] (HC-AC-FL) Head / Face / Neck Biometry: Therapeutic Activities Services Worker 7.9 mm Nasal bone 7.2 mm Amniotic [...] that delivery will need to be at [facility] where NICU and Pediatric Cardiology as [...] this patient and /or family members. Approximate agjk-fr-prif time was 30 min utes. IMPRESSION Single intrauterine at 24 1/7 weeks gestation by 11 week ultrasound. Sonographic biometry agrees with gestational age predicted by prior ultrasound. 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 The remainder of anatomy was adequately visualized and appeared normal. Breanna Coleman MD [facility] US ORDERABLES documented in this encounter Visit Diagnoses Diagnosis , incidental state, incidental documented in this encounter Care Teams Systems Test Technician Relationship Specialty Start Date End Date System, Provider Not In PCP - General Clinic 08/12/14 07/13/16 documented as of this encounter
--- OUTSIDE RECORDS SUMMARY | 2021-12-13 12:43 | XMS_ITS | Encounter Summary ---
:1980 Author Organization [place] Address [address] [facility] [place] [address] Care Team Providers Name Role Phone System, Provider Not In Primary Care Provider Unavailable Reason for Visit Reason Comments Recheck Medication Encounter Details Date Type Department Care Team Description 09/20/2014 Office Visit [facility] Edgar Alfredoplic ated opioid dependence (H) (Primary Dx); Clinic Ashly Gauthier MD Opiate dependence (H) [address] [place] [phone] Social History Tobacco Use Types Packs/Day Years Used Date Smoking Tobacco: Every Day Cigarettes 0.1 10 Smokeless Tobacco: Never Comments: 5 cigarettes a day Alcohol Use Standard Drinks/Week Comments No 0 (1 standard drink = 0.6 oz pure alcoho l) Sex Assigned at Date Recorded Female 01/14/2020 10:57 AM AGRICULTURAL CONSULTANT documented as of this encounter Last [...] Take 1 tablet by mouth daily ??? Xsnslkkz-Kig-Wi-FA ( VITAMINS) 0.8 MG TABS Take 1 [...] [facility] andupdated as appropriate. ROS: Constitutional, HEENT, [...] Visit Wound Care Luis Camara, [place] [address] [place] [address] (Wo rk) 01/21/2022 PRE VISIT Gastroenterology Landon Warren, *-*HEATHER G RECORDS*-* MD Luis Fernando [address] [place] [address] (Wo rk) 01/21/2022 Office Visit Gastroenterology Juanis Levi [address] [place] [phone] Luis Fernando Miles MD [address] [place] [phone] documented as of this encounter Procedures Procedure [...] Organization Address City/State/[place] [address] [facility] Building [address] LAB Drug abuse screen (NL, RW) (09/20/2014 [...] LAB - URINE ORDERABLES Performing Organization Address City/State/[facility] [place] [address] [facility] [address] LAB documented in this encounter Visit Diagnoses Diagnosis Uncomplicated opioid dependence (H) - Pr imary Opioid type dependence, unspecified documented in this encounter Care Teams Biscuit Machine Operator Relationship Specialty Start Date End Date System, Provider Not In PCP - General Clinic 08/12/14 07/13/16 documented as of this encounter
--- OUTSIDE RECORDS SUMMARY | 2021-12-13 12:44 | XMS_ITS | Encounter Summary ---
:1980 Author Organization [place] Address [address] [facility] [address] Care Team Providers Name Role Phone Edgar Alfredo MD Primary Care Provider Reason for Visit Reason Comments Recheck Medication Encounter Details Date Type Department Care Team Description 02/15/2014 Office Visit [facility] Edgar Alfredo de pendence (H) Clinic Ashly Gauthier MD [address] [place] [address] [place] [phone] Social History Tobacco Use Types Packs/Day Years Used Date Smoking Tobacco: Every Day Cigarettes 0.1 10 Smokeless Tobacco: Never Comments: 5 cigarettes a day Alcohol Use Standard Drinks/Week Comments No 0 (1 standard drink = 0.6 oz pure alcoho l) Sex Assigned at Date Recorded Female 01/14/2020 10:57 AM UTILITY WORKER PRODUCTION documented as of this encounter Last Filed Vital Signs Vital Sign Reading Time Taken Comments Blood Pressure 130/86 02/15/2014 11:30 AM UTILITY WORKER PRODUCTION Pulse 87 02/15/2014 11:30 AM UTILITY WORKER PRODUCTION Temperature - - Respiratory Rate - - [...] relapse, and establishing a solid recovery program. ITY WORKER PRODUCTION documented in this encounter Nursing Notes Suyapa [...] cuff size: large Suyapa Rodriguez MLT, CMA ITY WORKER PRODUCTION documented in this encounter Plan of Treatment Upcoming Encounters Date Type Specialty Care Team Description 12/20/2021 Office Visit Wound Care Luis Camara DPM [address] [place] [address] (Wo rk) 01/21/2022 PRE VISIT Gastroenterology Landon Warren, *-*WANDAIN G RECORDS*-* MD Luis Fernando [address] [address] (Wo rk) 01/21/2022 Office Visit Gastroenterology Juanis eLvi [address] [place] [address] Luis Fernando Miles MD [address] [facility] [address] [place], [place] [phone] documented as of this encounter Procedures Procedure Name Priority Date/Time Associated Comments Diagnosis BUPRENORPHINE QUAL Routine 02/15/2014 11:22 Opiate dependence Results for this URINE AM UTILITY WORKER PRODUCTION (H) procedure are i n the results section. DRUG ABUSE SCREEN (NL, Routine 02/15/2014 11:22 Opiate depende nce Results for this RW) AM UTILITY WORKER PRODUCTION (H) procedure are i n the results section. documented in this encounter Results Buprenorphine Qual Urine (02/15/2014 11:22 AM UTILITY WORKER PRODUCTION) Patholo gist Method Time Signature Buprenorphine Positive [facility] LAB Qual Urine Specimen Anatomical Collection Method Collection Time Receive d Time (Source) Location / / Volume Laterality Urine specimen 02/15/2014 11:22 4 (specimen) AM UTILITY WORKER PRODUCTION 11:27 AM UTILITY WORKER PRODUCTION Edgar Alfredo MD LAB - URINE ORDERABLES Performing Organization Address City/State/[place] [address] [facility] Building [address] [facility] [address] RJ LAB Drug abuse screen (NL, RW) (02/15/2014 11:22 AM UTILITY WORKER PRODUCTION) Component Value Ref Test Analysis Performed Pathologis [...] Urine specimen 02/15/2014 11:22 4 (specimen) AM UTILITY WORKER PRODUCTION 11:27 AM UTILITY WORKER PRODUCTION Edgar Alfredo MD LAB - URINE ORDERABLES Performing Organization Address City/State/[place] [address] [facility] Building [address] [facility] LAB documented in this encounter Visit Diagnoses Diagnosis Opiate dependence (H) Opioid type dependence, unspecified documented in this encounter Care Teams Manufacturing Engineering Technologist Relationship Specialty Start Date End Date Edgar Alfredo MD PCP - General Family Practice 04/13/12 08/11/[address] [place] [address] documented as of this encounter
--- OUTSIDE RECORDS SUMMARY | 2021-12-13 12:44 | XMS_ITS | Encounter Summary ---
:1980 Author Organization [place] Address [address] [facility] [place] [address] Care Team Providers Name Role Phone Edgar Alfredo MD Primary Care Provider Reason for Visit Reason Comments Recheck Medication Encounter Details Date Type Department Care Team Description 08/02/2013 Office Visit [facility] Edgar Alfredo de pendence (H) Clinic Ashly Gauthier MD [address] [place] [address] [place] [phone] Social History Tobacco Use Types Packs/Day Years Used Date Smoking Tobacco: Every Day Cigarettes 0.1 10 Smokeless Tobacco: Never Comments: 5 cigarettes a day Alcohol Use Standard Drinks/Week Comments No 0 (1 standard drink = 0.6 oz pure alcoho l) Sex Assigned at Date Recorded Female 01/14/2020 10:57 AM SALVAGE CLERK documented as of this encounter Last [...] completed using cuff size: miguelangel Rodriguez CMA, PAPER CUP MACHINE TENDER documented in this encounter Plan of Treatment Upcoming Encounters Date Type Specialty Care Team Description 12/20/2021 Office Visit Wound Care Luis Camara, [place] [address] [place] [address] (Wo rk) 01/21/2022 PRE VISIT Gastroenterology Landon Warren, *-*INCOMIN G RECORDS*-* MD Luis Fernando [address] [place] [address] [address] [place], [place] [address] (Wo rk) 01/21/2022 Office Visit Gastroenterology Juanis Levi [address] [place] [address] Luis Fernando Miles MD [address] [facility] [address] [place] [address] documented as of this encounter [...] Organization Address City/State/[place] [address] [facility] Building [address] [...] Organization Address City/State/[place] [address] [facility] Building [address] [facility] LAB documented in this encounter Visit Diagnoses Diagnosis Opiate dependence (H) Opioid type dependence, unspecified documented in this encounter Care Teams Tyre Fitter Relationship Specialty Start Date End Date Edgar Alfredo MD PCP - General Family Practice 04/13/12 08/11/[address] [place] [address] documented as of this encounter
--- OUTSIDE RECORDS SUMMARY | 2021-12-13 12:44 | XMS_ITS | Encounter Summary ---
:1980 Author Organization [place] Address [address] [place] [address] Care Team Providers Name Role Phone Edgar Alfredo MD Primary Care Provider Reason for Visit Reason Onset Date Comments Refill Request 08/26/2013 Encounter Details Date Type Department Care Team Description 08/26/2013 Refill [facility] Nithya Alfredo MD Refill Request [place] [address] [place], [place] [address] [address] [place] [phone] Social History Tobacco Use Types Packs/Day Years Used Date Smoking Tobacco: Every Day Cigarettes 0.1 10 Smokeless Tobacco: Never Comments: 5 cigarettes a day Alcohol Use Standard Drinks/Week Comments No 0 (1 standard drink = 0.6 oz pure alcoho l) Sex Assigned at Date Recorded Female 01/14/2020 10:57 AM BIG 6 DEALER documented as of this encounter Miscellaneous Notes Telephone Encounter - Edgar Alfredo MD - 08/26/2013 5:34 PM CDT Should have enough until 09/01/13 6 day bridge ordered Telephone Encounter - Suyapa Rodriguez CMA - 08/26/2013 4:43 PM CDT Patient called, could not get a ride for appt today, rescheduled for 09/07, needs bridge. Suyapa Rodriguez CMA, TISSUE RECOVERY TECHNICIAN documented in this encounter Plan of Treatment Upcoming Encounters Date Type Specialty Care Team Description 12/20/2021 Office Visit Wound Care Luis Camara, [place] [address] [place] [address] (Wo rk) 01/21/2022 PRE VISIT Gastroenterology Landon Warren, *-*WANDAIN G RECORDS*-* MD Luis Fernando [address] [place] [phone] (Wo rk) 01/21/2022 Office Visit Gastroenterology Juanis Levi [address] [place] [phone] Luis Fernando Miles MD [address] [place] [phone] documented as of this encounter Visit Diagnoses Diagnosis Opiate dependence (H) Opioid type dependence, unspecified documented in this encounter Care Teams Associate Property Manager Relationship Specialty Start Date End Date Edgar Alfredo MD PCP - General Family Practice 04/13/12 08/11/14 [address] [facility] [address] [place] [phone] documented as of this encounter
--- OUTSIDE RECORDS SUMMARY | 2021-12-13 12:44 | XMS_ITS | Encounter Summary ---
:1980 Author Organization [place] Address [address] [place] [address] Care Team Providers Name Role Phone Edgar Alfredo MD Primary Care Provider Reason for Visit Reason Comments Recheck Medication Encounter Details Date Type Department Care Team Description 04/12/2014 Office Visit [facility] Edgar Alfredo de pendence (H) Clinic Ashly Gauthier MD [address] [place] [address] [place] [phone] Social History Tobacco Use Types Packs/Day Years Used Date Smoking Tobacco: Every Day Cigarettes 0.1 10 Smokeless Tobacco: Never Comments: 5 cigarettes a day Alcohol Use Standard Drinks/Week Comments No 0 (1 standard drink = 0.6 oz pure alcoho l) Sex Assigned at Date Recorded Female 01/14/2020 10:57 AM WILDLIFE REFUGE MANAGER documented as of this encounter Last Filed Vital Signs Vital Sign Reading Time Taken Comments Blood Pressure 115/66 04/12/2014 11:18 AM WILDLIFE REFUGE MANAGER Pulse 101 04/12/2014 11:18 AM WILDLIFE REFUGE MANAGER Temperature - - Respiratory Rate - [...] relapse, and establishing a solid recovery program. LIFE REFUGE MANAGER documented in this encounter Nursing Notes [...] cuff size: large Suyapa Rodriguez MLT, CMA LIFE REFUGE MANAGER documented in this encounter Plan of Treatment Upcoming Encounters Date Type Specialty Care Team Description 12/20/2021 Office Visit Wound Care Luis Camara DPM [address] [place], [place] [phone] (Reinaldo molina) 01/21/2022 PRE VISIT Gastroenterology Landon Warren, *-*HEATHER G RECORDS*-* MD Luis Fernando [address] [facility] [place], [place] [address] (Reinaldo molina) 01/21/2022 Office Visit Gastroenterology Juanis Levi [address] [place] [address] Luis Fernando Miles MD 516 [facility] [address] [place] [address] documented as of this encounter Procedures Procedure Name Priority Date/Time Associated Comments Diagnosis BUPRENORPHINE QUAL Routine 04/12/2014 11:08 Opiate dependence Results for this URINE AM WILDLIFE REFUGE MANAGER (H) procedure are i n the results section. DRUG ABUSE SCREEN (NL, Routine 04/12/2014 11:08 Opiate depende nce Results for this RW) AM WILDLIFE REFUGE MANAGER (H) procedure are i n the results section. documented in this encounter Results Buprenorphine Qual Urine (04/12/2014 11:08 AM WILDLIFE REFUGE MANAGER) Patholo gist Method Time Signature Buprenorphine Positive [facility] LAB Qual Urine Specimen Anatomical Collection Method Collection Time Receive d Time (Source) Location / / Volume Laterality Urine specimen 04/12/2014 11:08 5 (specimen) AM WILDLIFE REFUGE MANAGER 11:13 AM WILDLIFE REFUGE MANAGER Edgar Alfredo MD LAB - URINE ORDERABLES Performing Organization Address City/State/[place] [address] [facility] Building [address] [facility] LAB Drug abuse screen (NL, RW) (04/12/2014 11:08 AM WILDLIFE REFUGE MANAGER) Component Value Ref Test Analysis Performed [...] Urine specimen 04/12/2014 11:08 5 (specimen) AM WILDLIFE REFUGE MANAGER 11:13 AM WILDLIFE REFUGE MANAGER Edgar Alfredo MD LAB - URINE ORDERABLES Performing Organization Address City/State/[place] [address] [facility] Building [address] [facility] LAB documented in this encounter Visit Diagnoses Diagnosis Opiate dependence (H) Opioid type dependence, unspecified documented in this encounter Care Teams Director Funeral Relationship Specialty Start Date End Date Edgar Alfredo MD PCP - General Family Practice 04/13/12 08/11/[address] [place] [phone] documented as of this encounter
--- OUTSIDE RECORDS SUMMARY | 2021-12-13 12:44 | XMS_ITS | Encounter Summary ---
:1980 Author Organization [place] Address [address] [facility] [place] [address] Care Team Providers Name Role Phone Edgar Alfredo MD Primary Care Provider Reason for Visit Reason Comments Recheck Medication Encounter Details Date Type Department Care Team Description 01/18/2014 Office Visit [facility] Edgar Alfredo de pendence (H) Clinic Ashly Gauthier MD [address] [address] [place] [phone] Social History Tobacco Use Types Packs/Day Years Used Date Smoking Tobacco: Every Day Cigarettes 0.1 10 Smokeless Tobacco: Never Comments: 5 cigarettes a day Alcohol Use Standard Drinks/Week Comments No 0 (1 standard drink = 0.6 oz pure alcoho l) Sex Assigned at Date Recorded Female 01/14/2020 10:57 AM WHISKEY FILTERER documented as of this encounter Last Filed Vital Signs Vital Sign Reading Time Taken Comments Blood Pressure 117/82 01/18/2014 10:56 AM WHISKEY FILTERER Pulse 90 01/18/2014 10:56 AM WHISKEY FILTERER Temperature - - Respiratory Rate - - [...] relapse, and establishing a solid recovery program. KEY FILTERER documented in this encounter Nursing Notes Suyapa [...] cuff size: large Suyapa Rodriguez MLT, CMA KEY FILTERER documented in this encounter Plan of Treatment Upcoming Encounters Date Type Specialty Care Team Description 12/20/2021 Office Visit Wound Care Luis Camara DPM [address] [place] [address] (Wo rk) 01/21/2022 PRE VISIT Gastroenterology Landon Warren, *-*HEATHER Barriga RECORDS*-* MD Luis Fernando [address] [address] (Wo rk) 01/21/2022 Office Visit Gastroenterology Juanis Levi [address] [place] [phone] Luis Fernando Miles MD 516 [facility] [address] [place], [place] [phone] documented as of this encounter Procedures Procedure Name Priority Date/Time Associated Comments Diagnosis BUPRENORPHINE QUAL Routine 01/18/2014 10:48 Opiate dependence Results for this URINE AM WHISKEY FILTERER (H) procedure are i n the results section. DRUG ABUSE SCREEN (NL, Routine 01/18/2014 10:48 Opiate depende nce Results for this RW) AM WHISKEY FILTERER (H) procedure are i n the results section. documented in this encounter Results Buprenorphine Qual Urine (01/18/2014 10:48 AM WHISKEY FILTERER) Patholo gist Method Time Signature Buprenorphine Positive [facility] LAB Qual Urine Specimen Anatomical Collection Method Collection Time Receive d Time (Source) Location / / Volume Laterality Urine specimen 01/18/2014 10:48 4 (specimen) AM WHISKEY FILTERER 10:53 AM WHISKEY FILTERER Edgar Alfredo MD LAB - URINE ORDERABLES Performing Organization Address City/State/[place] [address] [facility] Building [address] [facility] [address] [facility] LAB (ABNORMAL) Drug abuse screen (NL, RW) (01/18/2014 10:48 AM WHISKEY FILTERER) Component Value Ref Test Analysis Performed Pathologis [...] Urine specimen 01/18/2014 10:48 4 (specimen) AM WHISKEY FILTERER 10:53 AM WHISKEY FILTERER Edgar Alfredo MD LAB - URINE ORDERABLES Performing Organization Address City/State/[facility] [place] [address] [facility] Building [address] [facility] LAB documented in this encounter Visit Diagnoses Diagnosis Opiate dependence (H) Opioid type dependence, unspecified documented in this encounter Care Teams School Photographer Relationship Specialty Start Date End Date Edgar Alfredo MD PCP - General Family Practice 04/13/12 08/11/[address] [place] [address] documented as of this encounter
--- OUTSIDE RECORDS SUMMARY | 2021-12-13 12:44 | XMS_ITS | Encounter Summary ---
:1980 Author Organization [place] Address [address] [facility] [place] [address] Care Team Providers Name Role Phone Edgar Alfredo MD Primary Care Provider Reason for Visit Reason Comments Recheck Medication Encounter Details Date Type Department Care Team Description 09/30/2013 Office Visit [facility] Edgar Alfredo de pendence (H) Clinic Ashly Gauthier MD [address] [place] [phone] Social History Tobacco Use Types Packs/Day Years Used Date Smoking Tobacco: Every Day Cigarettes 0.1 10 Smokeless Tobacco: Never Comments: 5 cigarettes a day Alcohol Use Standard Drinks/Week Comments No 0 (1 standard drink = 0.6 oz pure alcoho l) Sex Assigned at Date Recorded Female 01/14/2020 10:57 AM SYSTEMS INTEGRATION MANAGER documented as of this encounter Last [...] Visit Wound Care Luis Camara DPM 9[address] [place] [address] (Wo rk) 01/21/2022 PRE VISIT Gastroenterology Landon Warren, *-*HEATHER Barriga RECORDS*-* MD Luis Fernando [address] [address] (Wo rk) 01/21/2022 Office Visit Gastroenterology Juanis Levi [address] [place] [phone] Luis Fernando Miles MD 516 [facility] [address] [place], [place] [address] documented as of this encounter Procedures Procedure [...] Organization Address City/State/[place] [address] [facility] Building [address] [place] [address] [address] RJ LAB Drug abuse [...] Organization Address City/State/Z[place] [address] [facility] [address] R[facility] LAB documented in this encounter Visit Diagnoses Diagnosis Opiate dependence (H) Opioid type dependence, unspecified documented in this encounter Care Teams Human Insights Lead Ads Marketing Relationship Specialty Start Date End Date Edgar Alfredo MD PCP - General Family Practice 04/13/12 08/11/[address] [place] [address] documented as of this encounter
--- OUTSIDE RECORDS SUMMARY | 2021-12-13 12:44 | XMS_ITS | Encounter Summary ---
:1980 Author Organization [place] Address [address] [place] [address] Care Team Providers Name Role Phone Edgar Alfredo MD Primary Care Provider Reason for Visit Reason Onset Date Comments Refill Request 09/07/2013 Encounter Details Date Type Department Care Team Description 09/06/2013 Refill [facility] Nithya Alfredo MD Refill Request [place] [address] [place], [place] [address] [phone] [place] [address] [phone] Social History Tobacco Use Types Packs/Day Years Used Date Smoking Tobacco: Every Day Cigarettes 0.1 10 Smokeless Tobacco: Never Comments: 5 cigarettes a day Alcohol Use Standard Drinks/Week Comments No 0 (1 standard drink = 0.6 oz pure alcoho l) Sex Assigned at Date Recorded Female 01/14/2020 10:57 AM RACK CLEANER documented as of this encounter Miscellaneous [...] Visit Wound Care Luis Camara, [place] [address] [place] [address] (Wo rk) 01/21/2022 PRE VISIT Gastroenterology Landon Warren, *-*INCOMIN G RECORDS*-* MD Luis Fernando [address] [place] [address] [address] [place], [place] [address] (Wo rk) 01/21/2022 Office Visit Gastroenterology Juanis Levi [address] [place] [phone] Luis Fernando Miles MD [address] [place] [phone] documented as of this encounter Visit Diagnoses Not on filedocumented in this encounter Care Teams Auricular Acupuncturist Relationship Specialty Start Date End Date Edgar Alfredo MD PCP - General Family Practice 04/13/12 08/11/[address] [facility] 700 [place] [address] documented as of this encounter
--- OUTSIDE RECORDS SUMMARY | 2021-12-13 12:44 | XMS_ITS | Encounter Summary ---
:1980 Author Organization [place] Address [address] [facility] [place] [address] Care Team Providers Name Role Phone Edgar Alfredo MD Primary Care Provider Reason for Visit Reason Onset Date Comments Medication Request 07/30/2013 suboxone Encounter Details Date Type Department Care Team Description 07/30/2013 Telephone [facility] Edgar Alfredo, [facility] ication Request Clinic Ashly VÁSQUEZ (suboxone) [address] [place] [phone] (Wo rk) Social History Tobacco Use Types Packs/Day Years Used Date Smoking Tobacco: Every Day Cigarettes 0.1 10 Smokeless Tobacco: Never Comments: 5 cigarettes a day Alcohol Use Standard Drinks/Week Comments No 0 (1 standard drink = 0.6 oz pure alcoho l) Sex Assigned at Date Recorded Female 01/14/2020 10:57 AM PASTING MACHINE OPERATOR documented as of this encounter Miscellaneous Notes Telephone Encounter - Suyapa Rodriguez CMA - 07/30/2013 11:23 AM CDT Patient called and left VM message saying she misplaced her bottle of suboxone and needs more calledin to get to her appointment on Friday. She can be reached at [phone]. Suyapa Rodriguez CMA, ASSISTANT DISTRICT ATTORNEY documented in this encounter Plan of Treatment Upcoming Encounters Date Type Specialty Care Team Description 12/20/2021 Office Visit Wound Care [facility] Luis Lex, DPM [address] [place] [address] (Wo rk) 01/21/2022 PRE VISIT Gastroenterology Landon Warren, *-*INCOMIN G RECORDS*-* MD Luis Fernando 6 [facility] [address] [place], [place] [address] (Wo rk) 01/21/2022 Office Visit Gastroenterology Juanis Levi [address] [place] [phone] Luis Fernando Miles MD 6 [facility] [address] [place] [address] documented as of this encounter Visit Diagnoses Not on filedocumented in this encounter Care Teams Fire Control Mechanic Relationship Specialty Start Date End Date Edgar Alfredo MD PCP - General Family Practice 04/13/12 08/11/[address] [facility] 700 [place] [address] documented as of this encounter
--- OUTSIDE RECORDS SUMMARY | 2021-12-13 12:44 | XMS_ITS | Encounter Summary ---
:1980 Author Organization [place] Address [address] [facility] [place] [address] Care Team Providers Name Role Phone Edgar Alfredo MD Primary Care Provider Reason for Visit Reason Onset Date Comments Pt. Information/instruction 07/27/2013 Schedule denisa ointment Encounter Details Date Type Department Care Team Description 07/27/2013 Telephone [facility] Edgar Alfredo, Pt. Clinic Ashly VÁSQUEZ Information/instruction [address] [place] (Schedule appointment ) [address] [place] [phone] (Wo rk) Social History Tobacco Use Types Packs/Day Years Used Date Smoking Tobacco: Every Day Cigarettes 0.1 10 Smokeless Tobacco: Never Comments: 5 cigarettes a day Alcohol Use Standard Drinks/Week Comments No 0 (1 standard drink = 0.6 oz pure alcoho l) Sex Assigned at Date Recorded Female 01/14/2020 10:57 AM PATIENT TRANSPORTATION DRIVER documented as of this encounter Miscellaneous Notes Telephone Encounter - Antonella Guillen - 07/28/2013 7:11 AM CDT Patient called to schedule an appointment, please call to schedule. documented in this encounter Plan of Treatment Upcoming Encounters Date Type Specialty Care Team Description 12/20/2021 Office Visit Wound Care Luis Camara, [place] [address] [place], [place] [phone] (Wo rk) 01/21/2022 PRE VISIT Gastroenterology Landon Warren, *-*INCOMIN G RECORDS*-* MD Luis Fernando 516 [facility] 2[address] [place], [place] [phone] (Wo rk) 01/21/2022 Office Visit Gastroenterology Juanis Levi [address] [place] [address] Luis Fernando Miles MD 516 [facility] [address] [place], [place] [address] documented as of this encounter Visit Diagnoses Not on filedocumented in this encounter Care Teams Spring Fitter Relationship Specialty Start Date End Date Edgar Alfredo MD PCP - General Family Practice 04/13/12 08/11/14 [address] [facility] 700 [place] [address] documented as of this encounter
--- OUTSIDE RECORDS SUMMARY | 2021-12-13 12:44 | XMS_ITS | Encounter Summary ---
:1980 Author Organization [place] Address [address] [facility] [place] [address] Care Team Providers Name Role Phone Edgar Alfredo MD Primary Care Provider Reason for Visit Reason Onset Date Comments Appointment 11/09/2013 Pt requesting a soon er Appointment Encounter Details Date Type Department Care Team Description 11/09/2013 Telephone [facility] Edgar Alfredo, [place] ointment (Pt Clinic Ashly VÁSQUEZ requesting a sooner [address] [place] Appointment) [address] [place] [phone] (Wo rk) Social History Tobacco Use Types Packs/Day Years Used Date Smoking Tobacco: Every Day Cigarettes 0.1 10 Smokeless Tobacco: Never Comments: 5 cigarettes a day Alcohol Use Standard Drinks/Week Comments No 0 (1 standard drink = 0.6 oz pure alcoho l) Sex Assigned at Date Recorded Female 01/14/2020 10:57 AM PROGRAM ADVOCATE documented as of this encounter Miscellaneous Notes [...] Care Luis Camara, [place] [address] [place] [address] (Wo rk) 01/21/2022 PRE VISIT Gastroenterology Landon Warren, *-*HEATHER G RECORDS*-* MD Luis Fernando [address] [place] [phone] (Wo rk) 01/21/2022 Office Visit Gastroenterology Juanis Levi [address] [place] [phone] Luis Fernando Miles MD [address] [place] [phone] documented as of this encounter Visit Diagnoses Not on filedocumented in this encounter Care Teams Dog Sitter Relationship Specialty Start Date End Date Edgar Alfredo MD PCP - General Family Practice 04/13/12 08/11/14 [address] [facility] [address] [place] [phone] documented as of this encounter
--- OUTSIDE RECORDS SUMMARY | 2021-12-13 12:44 | XMS_ITS | Encounter Summary ---
:1980 Author Organization [place] Address [address] [facility] [place] [address] Care Team Providers Name Role Phone Edgar Alfredo MD Primary Care Provider Reason for Visit Reason Onset Date Comments Formulary Issue 06/08/2014 buprenorphine (SUBUT EX) 8 MG SUBL Encounter Details Date Type Department Care Team Description 06/08/2014 Telephone [facility] Edgar Alfredo, For mulary Issue Clinic Ashly VÁSQUEZ (buprenorphine [address] [place] (SUBUTEX) 8 MG SUBL) [address] [place] [phone] (Wo rk) Social History Tobacco Use Types Packs/Day Years Used Date Smoking Tobacco: Every Day Cigarettes 0.1 10 Smokeless Tobacco: Never Comments: 5 cigarettes a day Alcohol Use Standard Drinks/Week Comments No 0 (1 standard drink = 0.6 oz pure alcoho l) Sex Assigned at Date Recorded Female 01/14/2020 10:57 AM ICT HELP DESK OFFICER documented as of this encounter Miscellaneous Notes Telephone Encounter - Suyapa Rodriguez [facility] - 06/10/2014 8:53 AM CDT PA approved #[id number], good thru 06/17/14, will change insurance then and will need to be redone. Telephone Encounter - Suyapa Rodriguez CMA - 06/08/2014 2:20 PM CDT was waiting for necessary info from patient or Dr. Alfredo. Pt called back. PA fax[facility]. Telephone Encounter - Vivian Spence CMA - 06/08/2014 2:08 PM CDT Incoming call from patient stating a PA is needed for buprenorphine (SUBUTEX) 8 MG SUBL Vivian Spence, [facility] Field Contact Technician documented in this encounter Plan of Treatment Upcoming Encounters Date Type Specialty Care Team Description 12/20/2021 Office Visit Wound Care Luis Camara, [place] [address] [place] [address] (Wo rk) 01/21/2022 PRE VISIT Gastroenterology Landon Warren, *-*WANDAIN G RECORDS*-* MD Luis Fernando [address] [place] [phone] (Wo rk) 01/21/2022 Office Visit Gastroenterology Juanis Levi [address] [place] [phone] Luis Fernando Miles MD [address] [place] [phone] documented as of this encounter Visit Diagnoses Not on filedocumented in this encounter Care Teams Metal Smelter Relationship Specialty Start Date End Date Edgar Alfredo MD PCP - General Family Practice 04/13/12 08/11/[address] [place] [phone] documented as of this encounter
--- OUTSIDE RECORDS SUMMARY | 2021-12-13 12:44 | XMS_ITS | Encounter Summary ---
:1980 Author Organization [place] Address [address] [facility] [place] [address] Care Team Providers Name Role Phone Edgar Alfredo MD Primary Care Provider Reason for Visit Reason Comments Recheck Medication Encounter Details Date Type Department Care Team Description 03/15/2014 Office Visit [facility] Edgar Alfredo de pendence (H) Clinic Ashly Gauthier MD [address] [place] [address] [place] [phone] Social History Tobacco Use Types Packs/Day Years Used Date Smoking Tobacco: Every Day Cigarettes 0.1 10 Smokeless Tobacco: Never Comments: 5 cigarettes a day Alcohol Use Standard Drinks/Week Comments No 0 (1 standard drink = 0.6 oz pure alcoho l) Sex Assigned at Date Recorded Female 01/14/2020 10:57 AM AIR QUALITY INSTRUMENT SPECIALIST documented as of this encounter Last Filed Vital Signs Vital Sign Reading Time Taken Comments Blood Pressure 110/63 03/15/2014 11:27 AM AIR QUALITY INSTRUMENT SPECIALIST Pulse 94 03/15/2014 11:27 AM AIR QUALITY INSTRUMENT SPECIALIST Temperature - - Respiratory Rate - [...] relapse, and establishing a solid recovery program. QUALITY INSTRUMENT SPECIALIST documented in this encounter Nursing Notes [...] cuff size: large Suyapa Rodriguez MLT, CMA QUALITY INSTRUMENT SPECIALIST documented in this encounter Plan of Treatment Upcoming Encounters Date Type Specialty Care Team Description 12/20/2021 Office Visit Wound Care Luis Camara DPM [address] [place] [address] (Wo rk) 01/21/2022 PRE VISIT Gastroenterology Landon Warren, *-*HEATHER RECORDS*-* MD Luis Fernando [address] [place] [phone] (Wo rk) 01/21/2022 Office Visit Gastroenterology Juanis Levi [address] [place] [phone] Luis Fernando Miles MD 516 [facility] [address] [place], [place] [phone] documented as of this encounter Procedures Procedure Name Priority Date/Time Associated Comments Diagnosis BUPRENORPHINE QUAL Routine 03/15/2014 11:17 Opiate dependence Results for this URINE AM AIR QUALITY INSTRUMENT SPECIALIST (H) procedure are i n the results section. DRUG ABUSE SCREEN (NL, Routine 03/15/2014 11:17 Opiate depende nce Results for this RW) AM AIR QUALITY INSTRUMENT SPECIALIST (H) procedure are i n the results section. documented in this encounter Results Buprenorphine Qual Urine (03/15/2014 11:17 AM AIR QUALITY INSTRUMENT SPECIALIST) Patholo gist Method Time Signature Buprenorphine Positive [facility] LAB Qual Urine Specimen Anatomical Collection Method Collection Time Receive d Time (Source) Location / / Volume Laterality Urine specimen 03/15/2014 11:17 5 (specimen) AM AIR QUALITY INSTRUMENT SPECIALIST 11:22 AM AIR QUALITY INSTRUMENT SPECIALIST Edgar Alfredo MD LAB - URINE ORDERABLES Performing Organization Address City/State/ZIP [place] [address] [facility] Building [address] RJ LAB Drug abuse screen (NL, RW) (03/15/2014 11:17 AM AIR QUALITY INSTRUMENT SPECIALIST) Component Value Ref Test Analysis Performed [...] Urine specimen 03/15/2014 11:17 5 (specimen) AM AIR QUALITY INSTRUMENT SPECIALIST 11:22 AM AIR QUALITY INSTRUMENT SPECIALIST Edgar Alfredo MD LAB - URINE ORDERABLES Performing Organization Address City/State/ZIP [place] [address] [facility] Building [address] RJ LAB documented in this encounter Visit Diagnoses Diagnosis Opiate dependence (H) Opioid type dependence, unspecified documented in this encounter Care Teams Outsole Leveler Relationship Specialty Start Date End Date Edgar Alfredo MD PCP - General Family Practice 04/13/12 08/11/[address] [place] [address] documented as of this encounter
--- OUTSIDE RECORDS SUMMARY | 2021-12-13 12:44 | XMS_ITS | Encounter Summary ---
:1980 Author Organization [place] Address [address] [facility] [place] [address] Care Team Providers Name Role Phone Edgar Alfredo MD Primary Care Provider Reason for Visit Reason Comments Recheck Medication Encounter Details Date Type Department Care Team Description 07/21/2014 Office Visit [facility] Edgar Alfredoplic ated opioid dependence (H) (Primary Dx); Clinic Ashly Gauthier MD Opiate dependence (H) [address] [place] [address] Social History Tobacco Use Types Packs/Day Years Used Date Smoking Tobacco: Every Day Cigarettes 0.1 10 Smokeless Tobacco: Never Comments: 5 cigarettes a day Alcohol Use Standard Drinks/Week Comments No 0 (1 standard drink = 0.6 oz pure alcoho l) Sex Assigned at Date Recorded Female 01/14/2020 10:57 AM PROJECT ASSISTANT documented as of this encounter Last [...] Visit Wound Care Luis Camara, [place] [address] [place] [address] (Wo rk) 01/21/2022 PRE VISIT Gastroenterology Landon Warren, *-*INCOMIN G RECORDS*-* MD Luis Fernando [address] [place] [address] [address] [place] [address] (Wo rk) 01/21/2022 Office Visit Gastroenterology Juanis Levi [address] [place] [phone] Luis Fernando Miles MD 516 [facility] [address] [place] [address] documented as of this encounter [...] Organization Address City/State/[place] [address] [facility] Building [address] [...] City/State/[facility] [place] [address] [facility] Building [address] [facility] documented in this encounter Visit Diagnoses Diagnosis Uncomplicated opioid dependence (H) - Pr imary Opioid type dependence, unspecified documented in this encounter Care Teams Image Scientist Relationship Specialty Start Date End Date Edgar Alfredo MD PCP - General Family Practice 04/13/12 08/11/[address] [place] [address] documented as of this encounter
--- OUTSIDE RECORDS SUMMARY | 2021-12-13 12:44 | XMS_ITS | Encounter Summary ---
:1980 Author Organization [place] Address [address] [facility] [place] [address] Care Team Providers Name Role Phone Edgar Alfredo MD Primary Care Provider Reason for Visit Reason Comments Recheck Medication Encounter Details Date Type Department Care Team Description 09/07/2013 Office Visit [facility] Edgar Alfredo de pendence (H) Clinic Ashly Gauthier MD [address] [place] [address] Social History Tobacco Use Types Packs/Day Years Used Date Smoking Tobacco: Every Day Cigarettes 0.1 10 Smokeless Tobacco: Never Comments: 5 cigarettes a day Alcohol Use Standard Drinks/Week Comments No 0 (1 standard drink = 0.6 oz pure alcoho l) Sex Assigned at Date Recorded Female 01/14/2020 10:57 AM BIOFUELS PRODUCTION MANAGER documented as of this encounter Last [...] Visit Wound Care Luis Camara DPM [address] [place], [place] [phone] (Reinaldo molina) 01/21/2022 PRE VISIT Gastroenterology Landon Warren, *-*INCOMIN G RECORDS*-* MD Luis Fernando [address] [place] [phone] (Reinaldo molina) 01/21/2022 Office Visit Gastroenterology Juanis Levi [address] [place] [phone] Luis Fernando Miles MD [address] [place] [address] documented as of this encounter Procedures Procedure [...] Organization Address City/State/[place] [address] [facility] Building [address] [...] Organization Address City/State/[place] [address] [facility] Building [address] [facility] documented in this encounter Visit Diagnoses Diagnosis Opiate dependence (H) Opioid type dependence, unspecified documented in this encounter Care Teams Pt Skilled Relationship Specialty Start Date End Date Edgar Alfredo MD PCP - General Family Practice 04/13/12 08/11/[address] [place] [address] documented as of this encounter
--- OUTSIDE RECORDS SUMMARY | 2021-12-13 12:44 | XMS_ITS | Encounter Summary ---
:1980 Author Organization [place] Address [address] [place] [address] Care Team Providers Name Role Phone Edgar Alfredo MD Primary Care Provider Reason for Visit Reason Onset Date Comments Refill Request 06/07/2014 Encounter Details Date Type Department Care Team Description 06/07/2014 Telephone [facility] Nithya Alfredo MD Refill Request [place] [address] [place], [place] [address] [phone] [place] [phone] Social History Tobacco Use Types Packs/Day Years Used Date Smoking Tobacco: Every Day Cigarettes 0.1 10 Smokeless Tobacco: Never Comments: 5 cigarettes a day Alcohol Use Standard Drinks/Week Comments No 0 (1 standard drink = 0.6 oz pure alcoho l) Sex Assigned at Date Recorded Female 01/14/2020 10:57 AM MECHANICAL ASSEMBLY TECHNICIAN documented as of this encounter Miscellaneous [...] Sig: Take 1.5 tab daily Vivian Spence, [facility] Oil Well Logging Engineer documented in this encounter Plan of Treatment Upcoming Encounters Date Type Specialty Care Team Description 12/20/2021 Office Visit Wound Care Luis Camara DPM [address] [place], [place] [address] (Wo rk) 01/21/2022 PRE VISIT Gastroenterology Landon Warren, *-*INCOMIN G RECORDS*-* MD Luis Fernando [address] [place] [address] (Wo rk) 01/21/2022 Office Visit Gastroenterology Juanis Levi [address] [place] [phone] Luis Fernando Miles MD [address] [place] [address] documented as of this encounter Visit Diagnoses Diagnosis Opiate dependence (H) - Primary Opioid type dependence, unspecified documented in this encounter Care Teams Quick Technician Relationship Specialty Start Date End Date Edgar Alfredo MD PCP - General Family Practice 04/13/12 08/11/[address] [phone] documented as of this encounter
--- OUTSIDE RECORDS SUMMARY | 2021-12-13 12:44 | XMS_ITS | Encounter Summary ---
:1980 Author Organization [place] Address [address] [facility] [place] [address] Care Team Providers Name Role Phone Edgar Alfredo MD Primary Care Provider Reason for Visit Reason Comments Recheck Medication Encounter Details Date Type Department Care Team Description 11/22/2013 Office Visit [facility] Edgar Alfredo de pendence (H) Clinic Ashly Gauthier MD [address] [place] [address] Social History Tobacco Use Types Packs/Day Years Used Date Smoking Tobacco: Every Day Cigarettes 0.1 10 Smokeless Tobacco: Never Comments: 5 cigarettes a day Alcohol Use Standard Drinks/Week Comments No 0 (1 standard drink = 0.6 oz pure alcoho l) Sex Assigned at Date Recorded Female 01/14/2020 10: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 Cues to [...] Visit Wound Care Luis Camara DPM [address] [place] [address] (Wo rk) 01/21/2022 PRE VISIT Gastroenterology Landon Warren, *-*HEATHER G RECORDS*-* MD Luis Fernando 516 [facility] 2[address] [place] [address] (Wo rk) 01/21/2022 Office Visit Gastroenterology Juanis Levi [address] [place] [phone] Luis Fernando Miles MD 516 [facility] [address] [place], [place] [address] documented as of this encounter Procedures Procedure [...] Organization Address City/State/[place] [address] [facility] Building [address] [facility] (ABNORMAL) Drug [...] Organization Address City/State/[place] [address] [facility] Building [address] [facility] documented in this encounter Visit Diagnoses Diagnosis Opiate dependence (H) Opioid type dependence, unspecified documented in this encounter Care Teams Multiple Spindle Screw Machine Operator Relationship Specialty Start Date End Date Edgar Alfredo MD PCP - General Family Practice 04/13/12 08/11/[address] [place] [address] documented as of this encounter
--- OUTSIDE RECORDS SUMMARY | 2021-12-13 12:44 | XMS_ITS | Encounter Summary ---
:1980 Author Organization [place] Address [address] [facility] [place] [address] Care Team Providers Name Role Phone Edgar Alfredo MD Primary Care Provider Reason for Visit Reason Comments Recheck Medication Encounter Details Date Type Department Care Team Description 06/23/2014 Office Visit [facility] Edgar Alfredo Cocaine a buse, unspecified (Primary Dx); Clinic Ashly Gauthier MD Opiate dependence (H) [address] [address] [place] [address] Social History Tobacco Use Types Packs/Day Years Used Date Smoking Tobacco: Every Day Cigarettes 0.1 10 Smokeless Tobacco: Never Comments: 5 cigarettes a day Alcohol Use Standard Drinks/Week Comments No 0 (1 standard drink = 0.6 oz pure alcoho l) Sex Assigned at Date Recorded Female 01/14/2020 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 Analysis performed by [facility], [address] [place] [address] Specimen Anatomical Collection Method Collection Time Receive d Time (Source) Location / / Volume Laterality Urine specimen 06/23/2014 4:42 PM 015 4:47 (specimen) CDT PM CDT Edgar Alfredo MD LAB - URINE ORDERABLES Performing Organization Address City/State/ZIP [place] [address] [facility] Building [address] [address] LAB Buprenorphine Qual Urine (06/23/2014 2:35 PM CDT) Patholo gist Method Time Signature Buprenorphine Positive [facility] Qual Urine Specimen Anatomical Collection Method Collection Time Receive d Time (Source) Location / / Volume Laterality Urine specimen 06/23/2014 2:35 PM 015 2:40 (specimen) CDT PM CDT Edgar Alfredo MD LAB - URINE ORDERABLES Performing Organization Address City/[facility]/ZIP [place] [address] [facility] Building [address] [...] Address City/State/ZIP [place] [address] [facility] Building [address] [facility] documented in this encounter Visit Diagnoses Diagnosis Cocaine abuse, unspecified - Primary Opiate dependence (H) Opioid type dependence, unspecified documented in this encounter Care Teams Manager File Relationship Specialty Start Date End Date Edgar Alfredo MD PCP - General Family Practice 04/13/12 08/11/[address] [place] [address] documented as of this encounter
--- OUTSIDE RECORDS SUMMARY | 2021-12-13 12:44 | XMS_ITS | Encounter Summary ---
:1980 Author Organization [place] Address [address] [facility] [place] [address] Care Team Providers Name Role Phone Edgar Alfredo MD Primary Care Provider Reason for Visit Reason Onset Date Comments Recheck Medication Erroneous encounter-disregard 11/11/2013 Encounter Details Date Type Department Care Team Description 11/08/2013 Office Visit [facility] Edgar Alfredo ERRONEOUS Clinic Ashly Gauthier MD ENCOUNTER--DISREGARD [address] [place] (Primary Dx) [address] [place] [address] Social History Tobacco Use Types Packs/Day Years Used Date Smoking Tobacco: Every Day Cigarettes 0.1 10 Smokeless Tobacco: Never Comments: 5 cigarettes a day Alcohol Use Standard Drinks/Week Comments No 0 (1 standard drink = 0.6 oz pure alcoho l) Sex Assigned at Date Recorded Female 01/14/2020 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 Please disregard. documented in this encounter Plan of Treatment Upcoming Encounters Date Type Specialty Care Team Description 12/20/2021 Office Visit Wound Care Luis Camara, [place] [address] [place], [place] [phone] (Wo rk) 01/21/2022 PRE VISIT Gastroenterology Landon Warren, *-*INCOMIN G RECORDS*-* MD Luis Fernando [address] [address] (Wo rk) 01/21/2022 Office Visit Gastroenterology Juanis Levi [address] [place] [address] Luis Fernando Miles MD [address] [phone] documented as of this encounter Visit Diagnoses Diagnosis ERRONEOUS ENCOUNTER--DISREGARD - Primary documented in this encounter Care Teams Turnaround Engineer Relationship Specialty Start Date End Date Edgar Alfredo MD PCP - General Family Practice 04/13/12 08/11/[address] [place] [address] documented as of this encounter
--- OUTSIDE RECORDS SUMMARY | 2021-12-13 12:44 | XMS_ITS | Encounter Summary ---
:1980 Author Organization [place] Address [address] [facility] [place] [address] Care Team Providers Name Role Phone Edgar Alfredo MD Primary Care Provider Reason for Visit Reason Comments Recheck Medication Encounter Details Date Type Department Care Team Description 12/23/2013 Office Visit [facility] Edgar Alfredo de pendence (H) Clinic Ashly Gauthier MD [address] [address] [place] [address] Social History Tobacco Use Types Packs/Day Years Used Date Smoking Tobacco: Every Day Cigarettes 0.1 10 Smokeless Tobacco: Never Comments: 5 cigarettes a day Alcohol Use Standard Drinks/Week Comments No 0 (1 standard drink = 0.6 oz pure alcoho l) Sex Assigned at Date Recorded Female 01/14/2020 10:57 AM MARGARINE CHURN OPERATOR documented as of this encounter Last Filed Vital Signs Vital Sign Reading Time Taken Comments Blood Pressure 133/84 12/23/2013 4:56 PM MARGARINE CHURN OPERATOR Pulse 99 12/23/2013 4:56 PM MARGARINE CHURN OPERATOR Temperature - - Respiratory Rate - - Oxygen Saturation - - Inhaled Oxygen Concentration - - Weight - - Height - - Body Mass Index - - documented in this encounter Progress Notes Edgar Alfredo MD - 12/24/2013 10:10 PM CST Stephani Parekr is here for a periodic Suboxone follow-up. [...] relapse, and establishing a solid recovery program. ARINE CHURN OPERATOR documented in this encounter Nursing Notes [...] cuff size: large Suyapa Rodriguez MLT, CMA ARINE CHURN OPERATOR documented in this encounter Plan of Treatment Upcoming Encounters Date Type Specialty Care Team Description 12/20/2021 Office Visit Wound Care Luis Camara DPM [address] [place] [address] (Wo rk) 01/21/2022 PRE VISIT Gastroenterology Landon Warren, *-*HEATHER G RECORDS*-* MD Luis Fernando [address] [place] [place], [place] [address] [address] [place] [address] (Wo rk) 01/21/2022 Office Visit Gastroenterology Juanis Levi [address] [place] [phone] Luis Fernando Miles MD 6 [facility] [address] [place], [place] [address] documented as of this encounter Procedures Procedure Name Priority Date/Time Associated Comments Diagnosis BUPRENORPHINE QUAL Routine 12/23/2013 4:56 PM Opiate dependenc e Results for this URINE MARGARINE CHURN OPERATOR (H) procedure are i n the results section. DRUG ABUSE SCREEN (NL, Routine 12/23/2013 4:56 PM Opiate depen dence Results for this RW) MARGARINE CHURN OPERATOR (H) procedure are i n the results section. documented in this encounter Results Buprenorphine Qual Urine (12/23/2013 4:56 PM MARGARINE CHURN OPERATOR) Patholo gist Method Time Signature Buprenorphine Negative [facility] LAB Qual Urine Specimen Anatomical Collection Method Collection Time Receive d Time (Source) Location / / Volume Laterality Urine specimen 12/23/2013 4:56 PM 014 5:01 (specimen) MARGARINE CHURN OPERATOR PM MARGARINE CHURN OPERATOR Edgar Alfredo MD LAB - URINE ORDERABLES Performing Organization Address City/State/[place] [address] [facility] Building [address] [facility] [address] [facility] Drug abuse screen (NL, RW) (12/23/2013 4:56 PM MARGARINE CHURN OPERATOR) Component Value Ref Test Analysis Performed [...] specimen 12/23/2013 4:56 PM 014 5:01 (specimen) MARGARINE CHURN OPERATOR PM MARGARINE CHURN OPERATOR Edgar Alfredo MD LAB - URINE ORDERABLES Performing Organization Address City/State/[place] [address] [facility] [address] [facility] documented in this encounter Visit Diagnoses Diagnosis Opiate dependence (H) Opioid type dependence, unspecified documented in this encounter Care Teams Director Dance Relationship Specialty Start Date End Date Edgar Alfredo MD PCP - General Family Practice 04/13/12 08/11/[address] [place] [address] documented as of this encounter
--- OUTSIDE RECORDS SUMMARY | 2021-12-13 12:44 | XMS_ITS | Encounter Summary ---
:1980 Author Organization [place] Address [address] [facility] [place] [address] Care Team Providers Name Role Phone Edgar Alfredo MD Primary Care Provider Reason for Visit Reason Onset Date Comments Medication Request 11/15/2013 subutex Encounter Details Date Type Department Care Team Description 11/15/2013 Telephone [facility] Edgar Alfredo, [facility] ication Request Clinic Ashly VÁSQUEZ (subutex) [address] [place] [address] (Wo rk) Social History Tobacco Use Types Packs/Day Years Used Date Smoking Tobacco: Every Day Cigarettes 0.1 10 Smokeless Tobacco: Never Comments: 5 cigarettes a day Alcohol Use Standard Drinks/Week Comments No 0 (1 standard drink = 0.6 oz pure alcoho l) Sex Assigned at Date Recorded Female 01/14/2020 10:57 AM RN CLINICAL RESOURCE documented as of this encounter Miscellaneous Notes [...] her appt on 11/22. Call back # [phone]. Suyapa Rodriguez, GAME MANAGER, DON documented in this encounter Plan of Treatment Upcoming Encounters Date Type Specialty Care Team Description 12/20/2021 Office Visit [facility] Luis Lex, DPM [address] [place], [place] [phone] (Wo rk) 01/21/2022 PRE VISIT Gastroenterology Landon Warren, *-*INCOMIN G RECORDS*-* MD Luis Fernando [address] [place] [phone] (Wo rk) 01/21/2022 Office Visit Gastroenterology Juanis Levi [address] [place] [address] Luis Fernando Miles MD [address] [place] [phone] documented as of this encounter Visit Diagnoses Diagnosis Opiate dependence (H) Opioid type dependence, unspecified documented in this encounter Care Teams Db2 Developer Relationship Specialty Start Date End Date Edgar Alfredo MD PCP - General Family Practice 04/13/12 08/11/14 [address] [facility] 700 [place] [address] documented as of this encounter
--- OUTSIDE RECORDS SUMMARY | 2021-12-13 12:44 | XMS_ITS | Encounter Summary ---
:1980 Author Organization [place] Address [address] [facility] [place] [address] Care Team Providers Name Role Phone Edgar Alfredo MD Primary Care Provider Reason for Visit Reason Comments Recheck Medication Encounter Details Date Type Department Care Team Description 05/05/2014 Office Visit [facility] Edgar Alfredo de pendence (H) Clinic Ashly Gauthier MD [address] [place] [address] [place] [address] Social History Tobacco Use Types Packs/Day Years Used Date Smoking Tobacco: Every Day Cigarettes 0.1 10 Smokeless Tobacco: Never Comments: 5 cigarettes a day Alcohol Use Standard Drinks/Week Comments No 0 (1 standard drink = 0.6 oz pure alcoho l) Sex Assigned at Date Recorded Female 01/14/2020 10:57 AM FELTING MACHINE 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 documented as of this encounter [...] Visit Wound Care Luis Camara DPM [address] [place] [address] (Wo rk) 01/21/2022 PRE VISIT Gastroenterology Landon Warren, *-*HEATHER Barriga RECORDS*-* MD Luis Fernando 516 [facility] 2[address] [place] [address] (Wo rk) 01/21/2022 Office Visit Gastroenterology Juanis Levi [address] [place] [phone] Luis Fernando Miles MD 6 [facility] [address] [place], [place] [phone] documented as of this encounter Procedures Procedure [...] Organization Address City/State/[place] [address] [facility] Building [address] [facility] LAB Drug abuse screen (NL, RW) (05/05/2014 [...] LAB - URINE ORDERABLES Performing Organization Address City/State/[facility] [place] [address] [facility] Building [address] [facility] documented in this encounter Visit Diagnoses Diagnosis Opiate dependence (H) Opioid type dependence, unspecified documented in this encounter Care Teams Heat Treat Supervisor Relationship Specialty Start Date End Date Edgar Alfredo MD PCP - General Family Practice 04/13/12 08/11/[address] [place] [phone] documented as of this encounter
--- OUTSIDE RECORDS SUMMARY | 2021-12-13 12:44 | XMS_ITS | Encounter Summary ---
:1980 Author Organization [place] Address [address] [place] [address] Care Team Providers Name Role Phone Edgar Alfredo MD Primary Care Provider Encounter Details Date Type Department Care Team Description 06/29/2014 Telephone [facility] Nithya Alfredo MD [place] [address] [facility] [address] [place], [place] [address] [address] [place] [address] [phone] Social History Tobacco Use Types Packs/Day Years Used Date Smoking Tobacco: Every Day Cigarettes 0.1 10 Smokeless Tobacco: Never Comments: 5 cigarettes a day Alcohol Use Standard Drinks/Week Comments No 0 (1 standard drink = 0.6 oz pure alcoho l) Sex Assigned at Date Recorded Female 01/14/2020 10:57 AM SYNTHETIC RESIN OPERATOR documented as of this encounter Miscellaneous Notes Telephone Encounter - Edgar Alfredo MD - 06/29/2014 10:07 AM CDT Advised of positive cocaine in urine Still denies Advised she must explain how it got there next visit documented in this encounter Plan of Treatment Upcoming Encounters Date Type Specialty Care Team Description 12/20/2021 Office Visit Wound Care Luis Camara, [place] [address] [place] [address] (Wo rk) 01/21/2022 PRE VISIT Gastroenterology Landon Warren, *-*INCOMIN G RECORDS*-* MD Luis Fernando 516 [facility] 2[address] [place], [place] [address] (Wo rk) 01/21/2022 Office Visit Gastroenterology Juanis Levi [address] [place] [phone] Luis Fernando Miles MD [address] [phone] documented as of this encounter Visit Diagnoses Not on filedocumented in this encounter Care Teams Converter Operator Relationship Specialty Start Date End Date Edgar Alfredo MD PCP - General Family Practice 04/13/12 08/11/14 [address] [facility] S [facility] 700 [place] [address] documented as of this encounter
--- OUTSIDE RECORDS SUMMARY | 2021-12-13 12:44 | XMS_ITS | Encounter Summary ---
:1980 Author Organization [place] Address [address] [facility] [place] [address] Care Team Providers Name Role Phone Edgar Alfredo MD Primary Care Provider Reason for Visit Reason Onset Date Comments Recheck Medication Erroneous encounter-disregard 06/02/2014 Encounter Details Date Type Department Care Team Description 06/02/2014 Office Visit [facility] Edgar Alfredo ERRONEOUS Clinic Ashly Gauthier MD ENCOUNTER--DISREGARD [address] [place] (Primary Dx) [address] [place] [phone] Social History Tobacco Use Types Packs/Day Years Used Date Smoking Tobacco: Every Day Cigarettes 0.1 10 Smokeless Tobacco: Never Comments: 5 cigarettes a day Alcohol Use Standard Drinks/Week Comments No 0 (1 standard drink = 0.6 oz pure alcoho l) Sex Assigned at Date Recorded Female 01/14/2020 10:57 AM WAYS OPERATOR documented as of this encounter Progress Notes Edgar Alfredo MD - 06/02/2014 5:44 PM CDT This encounter was opened in error. Please disregard. documented in this encounter Plan of Treatment Upcoming Encounters Date Type Specialty Care Team Description 12/20/2021 Office Visit Wound Care Luis Camara, [place] [address]09 [place], [place] [phone] (Wo rk) 01/21/2022 PRE VISIT Gastroenterology Landon Warren, *-*INCOMIN G RECORDS*-* MD Luis Fernando [address] [address] (Wo rk) 01/21/2022 Office Visit Gastroenterology Juanis Levi [address]50 [place] [address] Luis Fernando Miles MD [address] [phone] documented as of this encounter Visit Diagnoses Diagnosis ERRONEOUS ENCOUNTER--DISREGARD - Primary documented in this encounter Care Teams House Carpenter Helper Relationship Specialty Start Date End Date Edgar Alfredo MD PCP - General Family Practice 04/13/12 08/11/[address] [place] [address] documented as of this encounter
--- OUTSIDE RECORDS SUMMARY | 2021-12-13 12:44 | XMS_ITS | Encounter Summary ---
:1980 Author Organization [place] Address [address] [facility] [place] [address] Care Team Providers Name Role Phone Edgar Alfredo MD Primary Care Provider Reason for Visit Reason Onset Date Comments Call To Schedule Appointment 08/18/2013 Encounter Details Date Type Department Care Team Description 08/18/2013 Telephone [facility] Edgar Alfredo Cal l To Schedule Clinic Ashly VÁSQUEZ Appointment [address] [place] [address] [place] [phone] (Wo rk) Social History Tobacco Use Types Packs/Day Years Used Date Smoking Tobacco: Every Day Cigarettes 0.1 10 Smokeless Tobacco: Never Comments: 5 cigarettes a day Alcohol Use Standard Drinks/Week Comments No 0 (1 standard drink = 0.6 oz pure alcoho l) Sex Assigned at Date Recorded Female 01/14/2020 10:57 AM TOP CASE ASSEMBLER documented as of this encounter Miscellaneous [...] Wound Care Luis Camara, [place] [address] [place], [place] [phone] (Wo rk) 01/21/2022 PRE VISIT Gastroenterology Landon Warren, *-*INCOMIN G RECORDS*-* MD Luis Fernando [address] [place] [address] (Wo rk) 01/21/2022 Office Visit Gastroenterology Juanis Levi 2450 [place] [phone] Luis Fernando Miles MD [address] [place] [phone] documented as of this encounter Visit Diagnoses Not on filedocumented in this encounter Care Teams Curriculum And Assessment Director Relationship Specialty Start Date End Date Edgar Alfredo MD PCP - General Family Practice 04/13/12 08/11/14 [address] [facility] 700 [place] [phone] documented as of this encounter
--- OUTSIDE RECORDS SUMMARY | 2021-12-13 12:44 | XMS_ITS | Encounter Summary ---
:1980 Author Organization [place] Address [address] [facility] [place] [address] Care Team Providers Name Role Phone Edgar Alfrdeo MD Primary Care Provider Reason for Visit Reason Onset Date Comments Refill Request 09/07/2013 Please refax Subutex script Encounter Details Date Type Department Care Team Description 09/07/[address] 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 Pharmacy did not receive it. Pt is waiting in the pharmacy. documented in this encounter Plan of Treatment Upcoming Encounters Date Type Specialty Care Team Description 12/20/2021 Office Visit Wound Care Luis Camara DPM [address] [place], [place] [phone] (Wo rk) 01/21/2022 PRE VISIT Gastroenterology Landon Warren, *-*INCOMIN G RECORDS*-* MD Luis Fernando [address] [place] [address] (Wo rk) 01/21/2022 Office Visit Gastroenterology Juanis Levi [address]50 [place] [phone] Luis Fernando Miles MD [address] [place] [address] documented as of this encounter Visit Diagnoses Not on filedocumented in this encounter Care Teams Fire Extinguisher Repairer Relationship Specialty Start Date End Date Edgar Alfredo MD PCP - General Family Practice 04/13/12 08/11/[address] [place] [address] 700 [place] [phone] documented as of this encounter
--- OUTSIDE RECORDS SUMMARY | 2021-12-13 12:44 | XMS_ITS | Encounter Summary ---
:1980 Author Organization [place] Address [address] [facility] [place] [address] Care Team Providers Name Role Phone Edgar Alfredo MD Primary Care Provider Reason for Visit Reason Comments Recheck Medication Encounter Details Date Type Department Care Team Description 11/09/2013 Office Visit [facility] Edgar Alfredo de pendence (H) Clinic Ashly Gauthier MD [address] [place] [address] [place] [phone] Social History Tobacco Use Types Packs/Day Years Used Date Smoking Tobacco: Every Day Cigarettes 0.1 10 Smokeless Tobacco: Never Comments: 5 cigarettes a day Alcohol Use Standard Drinks/Week Comments No 0 (1 standard drink = 0.6 oz pure alcoho l) Sex Assigned at Date Recorded Female 01/14/2020 10:57 AM CUSTOMER MARKETING ASSISTANT documented as of this encounter Last [...] 12/20/2021 Office Visit Wound Care Luis Camara, [place] [address] [place] [phone] (Wo rk) 01/21/2022 PRE VISIT Gastroenterology Landon Warren, *-*WANDAIN G RECORDS*-* MD Luis Fernando [address] [facility] 2A [place], [place] [address] (Wo rk) 01/21/2022 Office Visit Gastroenterology Juanis Levi 2450 [place] [address] Luis Fernando Miles MD [address] [facility] [address]A [place] [address] documented as of this [...] Organization Address City/State/[place] [address] [facility] Building [address] [...] Organization Address City/State/[place] [address] [facility] Building [address] [facility] documented in this encounter Visit Diagnoses Diagnosis Opiate dependence (H) Opioid type dependence, unspecified documented in this encounter Care Teams Wire Hanger Relationship Specialty Start Date End Date Edgar Alfredo MD PCP - General Family Practice 04/13/12 08/11/[address] [place] [address] [place] [address] documented as of this encounter
--- OUTSIDE RECORDS SUMMARY | 2021-12-13 12:44 | XMS_ITS | Encounter Summary ---
:1980 Author Organization [place] Address [facility] [place] [address] Care Team Providers Name Role Phone Edgar Alfredo MD Primary Care Provider System, Provider Not In Primary Care Provider Unavailable [facility] Primary Care Provide r Luis Fernando Magana Primary Care Provider [facility] Primary Care Provide r Tatyana Haas HOUSE REGISTRY RN VACUUM METALIZER OPERATOR Unavailable [phone] Stephani Pina HOUSE REGISTRY RN VACUUM METALIZER OPERATOR Unavailable [phone] Tatyana Haas HOUSE REGISTRY RN VACUUM METALIZER OPERATOR Unavailable [phone] Stephani Pina HOUSE REGISTRY RN VACUUM METALIZER OPERATOR Unavailable [phone] Juanis Levi Primary Care Provider Elsa Yeh RN Unavailable Unavailable Rogelio Treadwell MD Unavailable [phone] uLis CamaraM Unavailable [phone] Camryn Christina MD Unavailable Sintia Lange PA-C Unavailable Luis Fernando Miles MD Unavailable [phone] Reason for Visit Reason Onset Date Comments Call To Schedule Appointment 08/26/2013 Encounter Details Date Type Department Care Team Description 08/26/2013 Telephone [facility] Edgar Mcclain Cal l To Schedule Clinic Ashly VÁSQUEZ Appointment [address] [place] [address] [place] [phone] (Wo rk) Social History Tobacco Use Types Packs/Day Years Used Date Smoking Tobacco: Every Day Cigarettes 0.1 10 Smokeless Tobacco: Never Comments: 5 cigarettes a day Alcohol Use Standard Drinks/Week Comments No 0 (1 standard drink = 0.6 oz pure alcoho l) Sex Assigned at Date Recorded Female 01/14/2020 10:57 AM PHOTOGRAPHS CURATOR documented as of this encounter Miscellaneous Notes Telephone Encounter - Antonella Guillen - 08/27/2013 6:57 AM CDT Stephani calling to schedule an appointment with Dr. Alfredo. Please call patient to schedule. Thank you. documented in this encounter Plan of Treatment Upcoming Encounters Date Type Specialty Care Team Description 12/20/2021 Office Visit Wound Care Luis Camara, [place] [address] [place] [address] (Reinaldo rk) 01/21/2022 PRE VISIT Gastroenterology Landon Warren, *-*INCOMIN G RECORDS*-* MD Luis Fernando [address] [place] [phone] (Wo rk) 01/21/2022 Office Visit Gastroenterology Juanis Levi 2450 [place] [phone] Luis Fernando Miles MD [address] [address] documented as of this encounter Visit Diagnoses Not on filedocumented in this encounter Additional Health Concerns Infection Onset Date Last Indicated Resolved Time MRSAComment: Added from external infection. 11/07/201406/18 documented as of this encounter Care Teams Sheet Pile Driver Operator Relationship Specialty Start Date End Date Edgar Alfredo, PCP - General Family Practice 04/13/1208/[address] [place] [phone] System, Provider Not PCP - General Clinic 08/12/14 7 In [facility], [facility] PCP - General 07/14/[address] [phone] Fernando Magana PCP - General Family Practice 12/07/16 01/19/[address] [address] [facility], [facility] PCP - General 01/20/[address] [address] Juanis Levi PCP - General Addiction Medicine 06/29/[address] [place] [phone] Tatyana Haas, Assigned PCP 08/02/18 01/29/20 HOUSE REGISTRY RN VACUUM METALIZER OPERATOR [facility] [address] [facility] [address]. [address] [place] [address] Stephani Pina, Assigned PCP 01/30/20 12/30/20 HOUSE REGISTRY RN VACUUM METALIZER OPERATOR [address] [place] [address] 700 [place] [address] Tatyana Haas, Assigned PCP 12/31/20 02/24/21 HOUSE REGISTRY RN VACUUM METALIZER OPERATOR [facility] DIGESTIVE [facility] [address] [place] [place] [address] Stephani Pina, Assigned PCP 02/25/21 HOUSE REGISTRY RN VACUUM METALIZER OPERATOR [address] [facility] [place] 700 [place] [address] Elsa Yeh, Registered Nurse Infectious Diseases 07/25/21 Rogelio Wilson Assigned Musculoskeletal 08/04/21 MD August Provider [address] [place], [place] [phone] Luis Camara MD Podiatry 08/16/21 CALVIN Burnett 909 [place], [place] [address] Camryn Christina Assigned Surgical 09/01/21 09/07/21 MD Lexie Provider 420 [facility] 195 [place], [place] [address] Sintia Lange PA-C Assigned Surgical 09/08/[address] [place] [address] 4TH Provider FLOOR [place], [place] [phone] Landon Warren MD Gastroenterology 11/21/21 MD Luis Fernando 516 [facility] [address]A [place], [place] [phone] documented as of this encounter
--- OUTSIDE RECORDS SUMMARY | 2021-12-13 12:45 | XMS_ITS | Encounter Summary ---
:1980 Author Organization [place] Address [address] [facility] [place] [address] Care Team Providers Name Role Phone Edgar Alfredo MD Primary Care Provider Reason for Visit Reason Onset Date Comments Refill Request 03/23/2013 suboxone Encounter Details Date Type Department Care Team Description 03/23/2013 Refill [facility] Edgar Alfredo, Ref ill Request Complex [facility] Clinic (suboxone) [address] [place] [address] [place] [phone] (Wo rk) Social History Tobacco Use Types Packs/Day Years Used Date Smoking Tobacco: Every Day Cigarettes 0.1 10 Smokeless Tobacco: Never Comments: 5 cigarettes a day Alcohol Use Standard Drinks/Week Comments No 0 (1 standard drink = 0.6 oz pure alcoho l) Sex Assigned at Date Recorded Female 01/14/2020 10:57 AM GLASS CYLINDER FLANGER documented as of this encounter Miscellaneous Notes Telephone Encounter - Suyapa Rodriguez - 03/24/2013 9:00 AM CST Tried to call patient, number below not good. Number in chart not good either. S CYLINDER FLANGER Telephone Encounter - Edgar Alfredo MD - 03/23/2013 2:52 PM CST Has missed too many appointments No refills until seen S CYLINDER FLANGER Telephone Encounter - Suyapa Rodriguez - 03/23/2013 2:34 PM CST Patient called, missed appt. today due to transportation not arriving. Rescheduled for this Thurs. Says she is out of suboxone, needs some to tide her over. She can be reached at [phone]. Suyapa Rodriguez, HYDRAULIC JACK ADJUSTER, SLICE PLUG CUTTER OPERATOR HELPER S CYLINDER FLANGER documented in this encounter Plan of Treatment Upcoming Encounters Date Type Specialty Care Team Description 12/20/2021 Office Visit Wound Care Luis Camara, [place] [address] [place], [place] [phone] (Wo rk) 01/21/2022 PRE VISIT Gastroenterology Landon Warren, *-*INCOMIN G RECORDS*-* MD Luis Fernando [address] [place] [address] [place] [address], [place] [address] (Wo rk) 01/21/2022 Office Visit Gastroenterology Juanis Levi 2450 [place] [phone] Luis Fernando Miles MD [address] [place] [address] [place] [address] documented as of this encounter Visit Diagnoses Not on filedocumented in this encounter Care Teams Skiver Hand Relationship Specialty Start Date End Date Edgar Alfredo MD PCP - General Family Practice 04/13/12 08/11/14 606 24[address] [facility] [address] [place] [phone] documented as of this encounter
--- OUTSIDE RECORDS SUMMARY | 2021-12-13 12:45 | XMS_ITS | Encounter Summary ---
:1980 Author Organization [place] Address [address] [place] [address] Care Team Providers Name Role Phone Edgar Alfredo MD Primary Care Provider Encounter Details Date Type Department Care Team Description 03/01/2013 Telephone [facility] Nithya Alfredo MD [place] [address] [facility] [address] [place] [address] [address] [place] [phone] Social History Tobacco Use Types Packs/Day Years Used Date Smoking Tobacco: Every Day Cigarettes 0.1 10 Smokeless Tobacco: Never Comments: 5 cigarettes a day Alcohol Use Standard Drinks/Week Comments No 0 (1 standard drink = 0.6 oz pure alcoho l) Sex Assigned at Date Recorded Female 01/14/2020 10:57 AM CASE ASSEMBLER documented as of this encounter Miscellaneous Notes Telephone Encounter - Edgar Alfredo MD - 03/01/2013 11:49 AM CST Appointment cancelled as son has pneumonia 8 day bridge ordered Returned call; left message. ASSEMBLER documented in this encounter Plan of Treatment Upcoming Encounters Date Type Specialty Care Team Description 12/20/2021 Office Visit Wound Care Luis Camara, DPM 909 [place] [address] (Wo rk) 01/21/2022 PRE VISIT Gastroenterology Landon Warren, *-*HEATHER G RECORDS*-* MD Luis Fernando [address] [address] (Wo rk) 01/21/2022 Office Visit Gastroenterology Juanis Levi 2450 [place] [address] Luis Fernando Miles MD [address] [place] [address] documented as of this encounter Visit Diagnoses Diagnosis Opiate dependence (H) - Primary Opioid type dependence, unspecified documented in this encounter Care Teams Bore Miner Operator Relationship Specialty Start Date End Date Edgar Alfredo MD PCP - General Family Practice 04/13/12 08/11/14 [address] 24[address] [facility] 700 [place] [phone] documented as of this encounter
--- OUTSIDE RECORDS SUMMARY | 2021-12-13 12:45 | XMS_ITS | Encounter Summary ---
:1980 Author Organization [place] Address [address] [facility] [place] [address] Care Team Providers Name Role Phone Edgar Alfredo MD Primary Care Provider Reason for Visit Reason Comments No Show Encounter Details Date Type Department Care Team Description 05/25/2013 Office Visit [facility] TONY StoutS [facility] ROSLYN [place] ENCOUNTER--DISREGARD [address] [place]AN [place] (Primary Dx) [address] [place], [place] [address] [place] [address] [place], [place] [phone] (Wo rk) Social History Tobacco Use Types Packs/Day Years Used Date Smoking Tobacco: Every Day Cigarettes 0.1 10 Smokeless Tobacco: Never Comments: 5 cigarettes a day Alcohol Use Standard Drinks/Week Comments No 0 (1 standard drink = 0.6 oz pure alcoho l) Sex Assigned at Date Recorded Female 01/14/2020 10:57 AM SADDLE TREE STITCHER documented as of this encounter Progress Notes Tania Trevino CMA - 05/26/2013 10:39 AM CDT NO show documented in this encounter Plan of Treatment Upcoming Encounters Date Type Specialty Care Team Description 12/20/2021 Office Visit Wound Care Luis Camara DPM 909 [place], [place] [address] (Wo rk) 01/21/2022 PRE VISIT Gastroenterology Landon Warren, *-*WANDAIN G RECORDS*-* MD Luis Fernando 516 [facility] 2A [place], [place] [phone] (Wo rk) 01/21/2022 Office Visit Gastroenterology Juanis Levi [address] [place] [phone] Luis Fernando Miles MD [address] [phone] documented as of this encounter Visit Diagnoses Diagnosis ERRONEOUS ENCOUNTER--DISREGARD - Primary documented in this encounter Care Teams Officer Lieutenant Relationship Specialty Start Date End Date Edgar Alfredo MD PCP - General Family Practice 04/13/12 08/11/14 [address] 24[address] [facility] 700 [place] [address] documented as of this encounter
--- OUTSIDE RECORDS SUMMARY | 2021-12-13 12:45 | XMS_ITS | Encounter Summary ---
:1980 Author Organization [place] Address 2450 [facility] [place] [address] Care Team Providers Name Role Phone Edgar Alfredo MD Primary Care Provider Reason for Visit Reason Onset Date Comments Medication Request 05/17/2013 Encounter Details Date Type Department Care Team Description 05/17/2013 Telephone [facility] Edgar Alfredo Ma rk, Medication Request Ashly VÁSQUEZ [address] [place] [address] [place] [phone] (Wo rk) Social History Tobacco Use Types Packs/Day Years Used Date Smoking Tobacco: Every Day Cigarettes 0.1 10 Smokeless Tobacco: Never Comments: 5 cigarettes a day Alcohol Use Standard Drinks/Week Comments No 0 (1 standard drink = 0.6 oz pure alcoho l) Sex Assigned at Date Recorded Female 01/14/2020 10:57 AM BED RUBBER documented as of this encounter Miscellaneous Notes [...] see her on 05/31. TY Crista Peoples, Head Operator Telephone Encounter - Edgar Alfredo MD - 05/17/2013 2:52 PM CDT Advised appointment 05/31/13 4 day bridge ordered Telephone Encounter - Natasha Lee - 05/17/2013 12:11 PM CDT Pt called clinic. Pt stated that she can not make her about today due to thyroid issues and would like a Bridge until her next appt. Pt can be reached at [phone] documented in this encounter Plan of Treatment Upcoming Encounters Date Type Specialty Care Team Description 12/20/2021 Office Visit Wound Care Luis Camara, [place] [address] [place], [place] [phone] (Wo rk) 01/21/2022 PRE VISIT Gastroenterology Landon Warren, *-*WANDAIN G RECORDS*-* MD Luis Fernando [address] [place] [address] (Wo rk) 01/21/2022 Office Visit Gastroenterology Juanis Levi [address]50 [place] [phone] Luis Fernando Miles MD [address] [place] [phone] documented as of this encounter Visit Diagnoses Diagnosis Opiate dependence (H) - Primary Opioid type dependence, unspecified documented in this encounter Care Teams Surveillance Dual Rate Officer Relationship Specialty Start Date End Date Edgar Alfredo MD PCP - General Family Practice 04/13/12 08/11/14 [address] 24[address] [facility] 700 [place] [phone] documented as of this encounter
--- OUTSIDE RECORDS SUMMARY | 2021-12-13 12:45 | XMS_ITS | Encounter Summary ---
:1980 Author Organization [place] Address 24[address] [facility] [place] [address] Care Team Providers Name Role Phone Edgar Alfredo MD Primary Care Provider Encounter Details Date Type Department Care Team Description 02/15/2013 Orders [facility] Opi ate dependence (H) [facility] [address] [place] [address] [address] [place], [place] [phone] Social History Tobacco Use Types Packs/Day Years Used Date Smoking Tobacco: Every Day Cigarettes 0.1 10 Smokeless Tobacco: Never Comments: 5 cigarettes a day Alcohol Use Standard Drinks/Week Comments No 0 (1 standard drink = 0.6 oz pure alcoho l) Sex Assigned at Date Recorded Female 01/14/2020 10:57 AM SSAS DEVELOPER documented as of this encounter Plan of Treatment Upcoming Encounters Date Type Specialty Care Team Description 12/20/2021 Office Visit Wound Care Luis Camara DPM 909 [place], [place] [phone] (Wo rk) 01/21/2022 PRE VISIT Gastroenterology Landon Warren, *-*HEATHER Barriga RECORDS*-* MD Luis Fernando 516 [facility] [place], [place] [phone] (Wo rk) 01/21/2022 Office Visit Gastroenterology Juanis Levi 2450 [place] [phone] Luis Fernando Miles MD 6 [facility] [address] [place] [address] documented as of this encounter Procedures Procedure Name Priority Date/Time Associated Diagnosis Comme nts DRUG ABUSE SCREEN 6 Routine 02/15/2013 2:56 PM Opiate dependen ce Results for this CHEM DEP URINE SSAS DEVELOPER (H) procedure are in ([facility]) the results section. documented in this encounter Results (ABNORMAL) Drug abuse screen 6 urine (chem dep) ([facility]) (02/15/2013 2:56 PM SSAS DEVELOPER) Component Value Ref Test Analysis Performed Pathologis t Range Method Time At Signature Amphetamine Qual Negative NEG [facility] Urine Cutoff for a negative amphetamine is 500 ng/mL or less. [facility] Barbiturates Qual Negative NEG [facility] Urine Cutoff for a negative barbiturate is 200 ng/mL or less. [facility] Benzodiazepine Negative NEG [facility] Qual Urine Cutoff for a negative benzodiazepine is 200 ng/mL or less . [facility] Cannabinoids Qual Negative NEG [facility] Urine Cutoff for a negative cannabinoid is 50 ng/mL or less. [facility] Cocaine Qual Positive NEG [facility] Urine Cutoff for a positive cocai ne is greater than 300 ng/mL. This is an unconfirmed [facility] screening result to be used for medical purposes only. LAB Testing performed using ToxSee method. (A) Ethanol Qual Negative NEG [facility] Urine Cutoff for a negative urine ethanol is 50 mg/dL or less. [facility] Opiates Negative NEG [facility] Qualitative Urine Cutoff for a negative opiate is 300 ng/mL or less. [facility] Specimen Anatomical Collection Method Collection Time Receive d Time (Source) Location / / Volume Laterality Urine specimen 02/15/2013 2:56 PM 013 3:01 (specimen) SSAS DEVELOPER PM SSAS DEVELOPER Edgar Alfredo MD LAB - URINE ORDERABLES Performing Organization Address City/State/ZIP Code Phon e Number [facility] [address] [place] [address] [facility] documented in this encounter Visit Diagnoses Diagnosis Opiate dependence (H) Opioid type dependence, unspecified documented in this encounter Care Teams Grain Scooper Relationship Specialty Start Date End Date Edgar Alfredo MD PCP - General Family Practice 04/13/12 08/11/14 606 24[facility] 700 [place] [phone] documented as of this encounter
--- OUTSIDE RECORDS SUMMARY | 2021-12-13 12:45 | XMS_ITS | Encounter Summary ---
:1980 Author Organization [place] Address [facility] [place] [address] Care Team Providers Name Role Phone Edgar Alfredo MD Primary Care Provider Reason for Visit Reason Onset Date Comments Refill Request 02/24/2013 Encounter Details Date Type Department Care Team Description 02/24/2013 Refill [facility] Myles Llamas, Refill Request Ashly VÁSQUEZ [address] [facility] 606 24[facility] 700 [address] [place], [place] [phone] (Wo rk) Social History Tobacco Use Types Packs/Day Years Used Date Smoking Tobacco: Every Day Cigarettes 0.1 10 Smokeless Tobacco: Never Comments: 5 cigarettes a day Alcohol Use Standard Drinks/Week Comments No 0 (1 standard drink = 0.6 oz pure alcoho l) Sex Assigned at Date Recorded Female 01/14/2020 10:57 AM BUILD ENGINEER documented as of this encounter Miscellaneous Notes Telephone Encounter - Edgar Alfredo MD - 02/25/2013 11:45 AM CST 6 day bridge called to [facility] by phone D ENGINEER Telephone Encounter - Nancy Bowden - 02/25/2013 10:51 AM CST Routed to Dr. Alfredo on 02/24/13. Will f/u per his instructions prn. aNncy Kelley RN February 25, 2013 10:51 AM D ENGINEER Telephone Encounter - Sintia Colon - 02/24/2013 4:13 PM CST Pt called and I have advised her to call Dr. Alfredo's office ([phone]). She then called the first front ventilator again wondering if Dr. Llamas could fill the suboxone since Dr. Alfredo is out and he refilled it in the past. I informed her that technically Dr. Llamas and Dr. Alrfedo do not work together anymore and Dr. Alfredo has to refill his patients meds. She out completely out today. Please review the order that is cued up. Sintia Colon RN D ENGINEER Telephone Encounter - April Mccauley - 02/24/2013 4:06 PM CST 1. Name of Med(s): suboxone 2. Last OV: 3. Current Dosage (if available): 4. Quantity Prescribed: 5. Prescribed Refills: 6. Si. Pharmacy: 8. [facility] off [address], suboxone current out D ENGINEER Telephone Encounter - Ryan Molina - 02/24/2013 4:01 PM CST Called and said she needs a refill for Subutex. Dr. Llamas only prescribe through today. She sees 03/01. She can be reached at [phone] D ENGINEER documented in this encounter Plan of Treatment Upcoming Encounters Date Type Specialty Care Team Description 12/20/2021 Office Visit Wound Care Luis Camara, [place] [address] [place] [phone] (Wo rk) 01/21/2022 PRE VISIT Gastroenterology Landon aWrren, *-*WANDAIN G RECORDS*-* MD Luis Fernando [address] [place] [address] [address] [place], [place] [address] (Wo rk) 01/21/2022 Office Visit Gastroenterology Juanis Levi 2450 [place] [phone] Luis Fernando Miles MD [address] [place] [address] [address] [place], [place] [phone] documented as of this encounter Visit Diagnoses Diagnosis Opiate dependence (H) - Primary Opioid type dependence, unspecified documented in this encounter Care Teams Doubler Operator Relationship Specialty Start Date End Date Edgar Alfredo MD PCP - General Family Practice 04/13/12 08/11/[address] [place] [address] 700 [place] [phone] documented as of this encounter
--- OUTSIDE RECORDS SUMMARY | 2021-12-13 12:45 | XMS_ITS | Encounter Summary ---
:1980 Author Organization [place] Address [address]50 [facility] [place] [address] Care Team Providers Name Role Phone Edgar Alfredo MD Primary Care Provider Reason for Visit Reason Comments Recheck Medication Encounter Details Date Type Department Care Team Description 04/27/2013 Office Visit [facility] Edgar Alfredo Opiate de pendence (H) (Primary Dx); Clinic Ashly Gauthier MD Moderate major depression (H) [address] [place] [address] [place] [phone] Social History Tobacco Use Types Packs/Day Years Used Date Smoking Tobacco: Every Day Cigarettes 0.1 10 Smokeless Tobacco: Never Comments: 5 cigarettes a day Alcohol Use Standard Drinks/Week Comments No 0 (1 standard drink = 0.6 oz pure alcoho l) Sex Assigned at Date Recorded Female 01/14/2020 10:57 AM FUSE CUP EXPANDER documented as of this encounter Last Filed [...] using cuff size: large Suyapa Rodriguez CMA, CASING TRIMMER documented in this encounter Plan of Treatment Upcoming Encounters Date Type Specialty Care Team Description 12/20/2021 Office Visit Wound Care Luis Camara DPM 909 [place], [place] [phone] (Reinaldo molina) 01/21/2022 PRE VISIT Gastroenterology Landon Warren, *-*HEATHER G RECORDS*-* MD Luis Fernando 516 [facility] 2A [place], [place] [address] (Reinaldo molina) 01/21/2022 Office Visit Gastroenterology Juanis Levi 2450 [place] [address] Luis Fernando Miles MD 516 [facility] [place] [address] documented as of this encounter Procedures Procedure [...] outs misc test (04/27/2013 11:57 AM CDT) [facility] Gravity Jack Method Time Signature Test Name BUPRENORPHINE RJ [...] Organization Address City/State/[place] [address] [facility] Building 606 [address] [address] [facility] Drug abuse screen (NL, RW) (04/27/2013 11:52 AM CDT) [facility] Gravity Jack Method Time Signature Methamphetamine Negative [facility] Qual Urine Cocaine Qual Urine Negative [facility] LAB Cannabinoids Qual Negative [facility] LAB Urine MDMA Qual Urine Negative [facility] LAB Methadone Qual Negative NEG [facility] Urine Opiates Qualitative Negative NEG [facility] Urine Benzodiazepine Qual Negative NEG [facility] Urine Tricyc Anti Qual Negative [facility] LAB Urine Barbiturates Qual Negative [facility] LAB Urine PCP Qual Urine Negative [facility] LAB Amphetamine Qual Negative [facility] Urine Oxycodone Qual Negative [facility] LAB Urine Specimen Anatomical Collection Method Collection Time Receive d Time (Source) Location / / Volume Laterality Urine specimen 04/27/2013 11:52 4 (specimen) AM CDT 12:46 PM CDT Edgar Alfredo MD LAB - URINE ORDERABLES Performing Organization Address City/State/[place] [address] [facility] Building [address] [facility] documented in this encounter Visit Diagnoses Diagnosis Opiate dependence (H) - Primary Opioid type dependence, unspecified Moderate major depression (H) Major depressive disorder, single episod e, moderate documented in this encounter Care Teams Operations Vice President Relationship Specialty Start Date End Date Edgar Alfredo MD PCP - General Family Practice 04/13/12 08/11/[address] [place] [address] [place] [phone] documented as of this encounter
--- OUTSIDE RECORDS SUMMARY | 2021-12-13 12:45 | XMS_ITS | Encounter Summary ---
:1980 Author Organization [place] Address 2450 [facility] [place] [address] Care Team Providers Name Role Phone Edgar Alfredo MD Primary Care Provider Reason for Visit Reason Onset Date Comments Recheck Medication Erroneous encounter-disregard 03/18/2013 Encounter Details Date Type Department Care Team Description 03/15/2013 Office Visit [facility] Edgar Alfredo ERRONEOUS Clinic Ashly Gauthier MD ENCOUNTER--DISREGARD [address] [place] (Primary Dx) [address] [place] [phone] Social History Tobacco Use Types Packs/Day Years Used Date Smoking Tobacco: Every Day Cigarettes 0.1 10 Smokeless Tobacco: Never Comments: 5 cigarettes a day Alcohol Use Standard Drinks/Week Comments No 0 (1 standard drink = 0.6 oz pure alcoho l) Sex Assigned at Date Recorded Female 01/14/2020 10:57 AM TRAVEL ACCOMMODATIONS RATER documented as of this encounter Progress Notes Edgar Alfredo MD - 03/18/2013 10:38 AM CST This encounter was opened in error. Please disregard. EL ACCOMMODATIONS RATER documented in this encounter Plan of Treatment Upcoming Encounters Date Type Specialty Care Team Description 12/20/2021 Office Visit Wound Care Luis Camara, [place] [address] [place] [address] (Wo rk) 01/21/2022 PRE VISIT Gastroenterology Landon Warren, *-*WANDAIN G RECORDS*-* MD Luis Fernando 6 [facility] 2A [place] [address] (Wo rk) 01/21/2022 Office Visit Gastroenterology Juanis Levi 2450 [place] [address] Luis Fernando Miles MD [address] [phone] documented as of this encounter Visit Diagnoses Diagnosis ERRONEOUS ENCOUNTER--DISREGARD - Primary documented in this encounter Care Teams Senior Software Quality Analyst Relationship Specialty Start Date End Date Edgar Alfredo MD PCP - General Family Practice 04/13/12 08/11/14 [address] [address] documented as of this encounter
--- OUTSIDE RECORDS SUMMARY | 2021-12-13 12:45 | XMS_ITS | Encounter Summary ---
:1980 Author Organization [place] Address 2450 [facility] [place] [address] Care Team Providers Name Role Phone Edgar Alfredo MD Primary Care Provider Encounter Details Date Type Department Care Team Description 03/25/2013 Office Visit [facility] Mando Hwang Opiate dependence (H) (Primary Dx); Clinic CONY Trejo Moderate major depression (H); [address] Anxiety [address] [place] [phone] Social History Tobacco Use Types Packs/Day Years Used Date Smoking Tobacco: Every Day Cigarettes 0.1 10 Smokeless Tobacco: Never Comments: 5 cigarettes a day Alcohol Use Standard Drinks/Week Comments No 0 (1 standard drink = 0.6 oz pure alcoho l) Sex Assigned at Date Recorded Female 01/14/2020 10:57 AM CALL CENTER NURSE documented as of this encounter Progress Notes Mando Hwang LMFT - 03/25/2013 3:39 PM CST [facility] Behavioral Health Clinician Progress Note Screening Brief Intervention Referral Treatment (SBIRT) March 25, 2013 Patient Name: Stephani Parker Service Type: Commercial [id number] (15-30 Minute SBIRT Screen And / Or [...] as Dr. Alfredo relocates his practice. This [facility] met with the patient in order to [...] due to a move she has discontinued. [facility] invited patient to establish primary healthcare services here if they have need or would like to, informed her of medically assisted treatment/suboxone support group that will be meeting weekly, and offered [facility] services now or in the future, as [...] a follow up appointment with the clinic [facility] as needed. CONY Muñoz, [facility] CENTER NURSE documented in this encounter Plan of Treatment Upcoming Encounters Date Type Specialty Care Team Description 12/20/2021 Office Visit Wound Care [facility] Luislaurel Burnett, DPM 909 [place] [address] (Wo rk) 01/21/2022 PRE VISIT Gastroenterology Landon Warren, *-*INCOMIN G RECORDS*-* MD Luis Fernando [address] [place] [address] [address] [place] [address] (Wo rk) 01/21/2022 Office Visit Gastroenterology Juanis Levi 2450 [place] [address] Luis Fernando Miles MD [address] [address] documented as of this encounter Visit Diagnoses Diagnosis Opiate dependence (H) - Primary Opioid type dependence, unspecified Moderate major depression (H) Major depressive disorder, single episod e, moderate Anxiety Anxiety state, unspecified documented in this encounter Care Teams Door Patcher Relationship Specialty Start Date End Date Edgar Alfredo MD PCP - General Family Practice 04/13/12 08/11/14 [address] [facility] 700 [place] [address] documented as of this encounter
--- OUTSIDE RECORDS SUMMARY | 2021-12-13 12:45 | XMS_ITS | Encounter Summary ---
:1980 Author Organization [place] Address 2450 [facility] [place] [address] Care Team Providers Name Role Phone Edgar Alfredo MD Primary Care Provider Reason for Visit Reason Onset Date Comments Erroneous encounter-disregard 03/04/2013 Encounter Details Date Type Department Care Team Description 03/01/2013 Office Visit [facility] Edgar Alfredo de pendence (H) (Primary Dx); Clinic Ashly Gauthier MD ERRONEOUS ENCOUNTER--DISREGARD [address] [place] [address] [place] [phone] Social History Tobacco Use Types Packs/Day Years Used Date Smoking Tobacco: Every Day Cigarettes 0.1 10 Smokeless Tobacco: Never Comments: 5 cigarettes a day Alcohol Use Standard Drinks/Week Comments No 0 (1 standard drink = 0.6 oz pure alcoho l) Sex Assigned at Date Recorded Female 01/14/2020 10:57 AM AIR CONDITIONING SHEET METAL INSTALLER documented as of this encounter Progress Notes Edgar Alfredo MD - 03/04/2013 10:08 AM CST This encounter was opened in error. Please disregard. CONDITIONING SHEET METAL INSTALLER documented in this encounter Plan of Treatment Upcoming Encounters Date Type Specialty Care Team Description 12/20/2021 Office Visit Wound Care Luis Camara, [place] [address] [place], [place] [phone] (Wo rk) 01/21/2022 PRE VISIT Gastroenterology Landon Warren, *-*INCOMIN G RECORDS*-* MD Luis Fernando 516 [facility] 2A [place], [place] [phone] (Wo rk) 01/21/2022 Office Visit Gastroenterology Juanis Levi [address] [place] [address] Luis Fernando Miles MD [address] [address] documented as of this encounter Visit Diagnoses Diagnosis Opiate dependence (H) - Primary Opioid type dependence, unspecified ERRONEOUS ENCOUNTER--DISREGARD documented in this encounter Care Teams Senior Risk Manager Relationship Specialty Start Date End Date Edgar Alfredo MD PCP - General Family Practice 04/13/12 08/11/14 [address] [phone] documented as of this encounter
--- OUTSIDE RECORDS SUMMARY | 2021-12-13 12:45 | XMS_ITS | Encounter Summary ---
:1980 Author Organization [place] Address 2450 [facility] [place] [address] Care Team Providers Name Role Phone Edgar Alfredo MD Primary Care Provider Reason for Visit Reason Onset Date Comments Call Back 02/03/2013 Encounter Details Date Type Department Care Team Description 02/03/2013 Telephone [facility] Nithya Alfredo MD Call Back [place] 606 [facility] [address] [place], [place] Suite [facility] [address] [place] [phone] Social History Tobacco Use Types Packs/Day Years Used Date Smoking Tobacco: Every Day Cigarettes 0.1 10 Smokeless Tobacco: Never Comments: 5 cigarettes a day Alcohol Use Standard Drinks/Week Comments No 0 (1 standard drink = 0.6 oz pure alcoho l) Sex Assigned at Date Recorded Female 01/14/2020 10:57 AM KEY BED INSTALLER documented as of this encounter Miscellaneous Notes Telephone Encounter - Chapis Diaz - 02/04/2013 9:52 AM CST Pt notified she will need us to confirm ride into clinic through her insurance.. To come in for testing. rx faxed. Chapis Diaz RN BED INSTALLER Telephone Encounter - Edgar Alfredo MD - 02/04/2013 9:48 AM CST Refilled 1 week supply; needs to come in for drug screen within 1 week before further refills BED INSTALLER Telephone Encounter - Sintia Colon - 02/03/2013 3:55 PM CST Please see note below. Last OV was on 01/07/2013, refilled 01/07/2013 #42. Pt unable to come in tomorrow, but she did scheduled for 03/[address] Order cued up. Sintia Colon RN BED INSTALLER Telephone Encounter - April Mccauley - 02/03/2013 3:43 PM CST Patient called in stating that she has an appointment with tona tomorrow, 02/04/2013 bu is unable tocome at that time due to also needing to go to court, patient requesting a call back from tona to discuss next steps. Also subutex will be out tomorrow, phone number [phone] (new cellphone number). BED INSTALLER documented in this encounter Plan of Treatment Upcoming Encounters Date Type Specialty Care Team Description 12/20/2021 Office Visit Wound Care Luis Camara DPM 909 [place] [address] (Wo rk) 01/21/2022 PRE VISIT Gastroenterology Landon Warren, *-*HEATHER G RECORDS*-* MD Luis Fernando 516 [facility] 2A [place] [address] (Wo rk) 01/21/2022 Office Visit Gastroenterology Juanis Levi 2450 [place] [address] Luis Fernando Miles MD [address] [facility] [address] [place], [place] [address] documented as of this encounter Visit Diagnoses Diagnosis Opiate dependence (H) - Primary Opioid type dependence, unspecified documented in this encounter Care Teams Supervisor Adult Education Relationship Specialty Start Date End Date Edgar Alfredo MD PCP - General Family Practice 04/13/12 08/11/[address] [facility] [address] [facility] 700 [place] [address] documented as of this encounter
--- OUTSIDE RECORDS SUMMARY | 2021-12-13 12:45 | XMS_ITS | Encounter Summary ---
:1980 Author Organization [place] Address [facility] [place] [address] Care Team Providers Name Role Phone Edgar Carbone MD Primary Care Provider Reason for Visit Reason Onset Date Comments Medication Request 02/12/2013 Encounter Details Date Type Department Care Team Description 02/12/2013 Telephone [facility] Edgar Carbone Ma rk, Medication Request Ashly VÁSQUEZ [address] [place] [address] [place] [address] [address] [place] [phone] (Wo rk) Social History Tobacco Use Types Packs/Day Years Used Date Smoking Tobacco: Every Day Cigarettes 0.1 10 Smokeless Tobacco: Never Comments: 5 cigarettes a day Alcohol Use Standard Drinks/Week Comments No 0 (1 standard drink = 0.6 oz pure alcoho l) Sex Assigned at Date Recorded Female 01/14/2020 10:57 AM GLOBAL COMPENSATION DIRECTOR documented as of this encounter Miscellaneous Notes Telephone Encounter - Madonna Cody - 02/15/2013 2:56 PM CST Script for subutex [facility]. AL COMPENSATION DIRECTOR Telephone Encounter - Chapis Elizalde - 02/15/2013 12:46 PM CST Will fax to ana grimm until ua /drug screen complete.--GENARO De La Fuente RN AL COMPENSATION DIRECTOR Addendum Note - Myles Reese MD - 02/15/2013 12:44 PM GLOBAL COMPENSATION DIRECTOR Addended by: MYLES REESE on: 02/15/2013 12:44 PM Modules accepted: Orders AL COMPENSATION DIRECTOR Telephone Encounter - Myles Reese MD - 02/15/2013 12:42 PM GLOBAL COMPENSATION DIRECTOR Ordered - please notify patient . Thanks Myles Reese MD AL COMPENSATION DIRECTOR Addendum Note - Chapis Elizalde - 02/15/2013 12:05 PM GLOBAL COMPENSATION DIRECTOR Addended by: CHAPIS ELIZALDE on: 02/15/2013 12:05 PM Modules accepted: Orders AL COMPENSATION DIRECTOR Telephone Encounter - Chapis Elizalde - 02/15/2013 12:04 PM CST Pt coming in today for ua drug screen, if insurance calls is medically necessary for ride. Will route to dr reese to get medication filled coming at 200 Chapis Elizalde RN AL COMPENSATION DIRECTOR Telephone Encounter - Myles Reese MD - 02/15/2013 9:52 AM GLOBAL COMPENSATION DIRECTOR Read and agree with plan Myles Reese MD AL COMPENSATION DIRECTOR Telephone Encounter - Edgar Carbone MD - 02/13/2013 10:50 AM CST Attempted to reach patient ; no answer, mailbox full If she calls in my absence: inquire as to whether she has been sober or using. If using - seek detox. If sober - OK to fill Subutex 8 mg per day until appointment 03/01/13 Advise come in for drug screen AL COMPENSATION DIRECTOR Telephone Encounter - Chapis Elizalde - 02/12/2013 4:15 PM CST i do not see that pt has checked in for lab as of this time today--just to let you know Chapis Elizalde RN AL COMPENSATION DIRECTOR Telephone Encounter - Chapis Elizalde - 02/12/2013 12:31 PM CST 330 today for send outs. She uses [facility] and [employer]. She will call for lab apt after she can set up ride for today Chapis Elizalde RN AL COMPENSATION DIRECTOR Telephone Encounter - Chapis Elizalde - 02/12/2013 12:26 PM CST Mail box full at this time, attempted to contact pt Chapis Elizalde RN AL COMPENSATION DIRECTOR Telephone Encounter - Edgar Carbone MD - 02/12/2013 12:21 PM CST Will refill as soon as she comes in to leave urine for drug screen - should be today AL COMPENSATION DIRECTOR Telephone Encounter - Chapis Elizalde - 02/12/2013 [...] for Friday to review. Chapis Elizalde RN AL COMPENSATION DIRECTOR Telephone Encounter - RadhaDonnie muñizen - 02/12/2013 11:29 AM CST Patient calling in. Patient needs refill of Subutex Was only given a 1 week refill, but next appointet isnt until 03/01 need refill to cover until linic appointment. Patient is currently out of medication Pharmacy [facility] [address] [facility] Best number for patient - [phone] Thank you\ Violeta Knight Forest Fire Fighter AL COMPENSATION DIRECTOR documented in this encounter Plan of Treatment Upcoming Encounters Date Type Specialty Care Team Description 12/20/2021 Office Visit Wound Care Luis Camara, [place] [address] [place] [address] (Wo rk) 01/21/2022 PRE VISIT Gastroenterology Landon Warren, *-*INCOMIN G RECORDS*-* MD Luis Fernando [address] [place] [phone] (Wo rk) 01/21/2022 Office Visit Gastroenterology Juanis Levi [address] [place] [phone] Luis Fernando Miles MD [address] [place] [address] documented as of this encounter Visit Diagnoses Diagnosis Opiate dependence (H) - Primary Opioid type dependence, unspecified documented in this encounter Care Teams Card Lacer Jacquard Relationship Specialty Start Date End Date Edgar Carbone MD PCP - General Family Practice 04/13/12 08/11/14 [address] [facility] 700 [place] [phone] documented as of this encounter
--- OUTSIDE RECORDS SUMMARY | 2021-12-13 12:45 | XMS_ITS | Encounter Summary ---
:1980 Author Organization [place] Address 2450 [facility] [place] [address] Care Team Providers Name Role Phone Edgar Alfredo MD Primary Care Provider Reason for Visit Reason Onset Date Comments Medication Request 03/08/2013 Encounter Details Date Type Department Care Team Description 03/08/2013 Telephone [facility] Edgar Alfredo Ma rk, Medication Request Ashly VÁSQUEZ [address] [place] [address] [place] [phone] (Wo rk) Social History Tobacco Use Types Packs/Day Years Used Date Smoking Tobacco: Every Day Cigarettes 0.1 10 Smokeless Tobacco: Never Comments: 5 cigarettes a day Alcohol Use Standard Drinks/Week Comments No 0 (1 standard drink = 0.6 oz pure alcoho l) Sex Assigned at Date Recorded Female 01/14/2020 10:57 AM BACKUP ADMINISTRATOR documented as of this encounter Miscellaneous Notes Telephone Encounter - Edgar Alfredo MD - 03/08/2013 11:55 AM CST Missed appointment due to problems with medical transportation; not her fault Re-scheduled for 1 week 1 week bridge ordered UP ADMINISTRATOR Telephone Encounter - Violeta Hunter - 03/08/2013 11:32 AM CST Patient calling in. Needed to reschedule provider appointment originally scheduled for 03/08 does have an appointment scheduled for 03/15/13. Patient is calling to get a refill of her Subutex. Best number to reach patient - [phone] Thank you Violeta Knight Machine Cloth Trimmer UP ADMINISTRATOR documented in this encounter Plan of Treatment Upcoming Encounters Date Type Specialty Care Team Description 12/20/2021 Office Visit Wound Care Luis Camara, [place] [address] [place] [address] (Wo rk) 01/21/2022 PRE VISIT Gastroenterology Landon Warren, *-*INCOMIN G RECORDS*-* MD Luis Fernando [address] [place] [address] (Wo rk) 01/21/2022 Office Visit Gastroenterology Juanis Levi [address] [place] [address] Luis Fernando Miles MD [address] [place] [phone] documented as of this encounter Visit Diagnoses Diagnosis Opiate dependence (H) - Primary Opioid type dependence, unspecified documented in this encounter Care Teams Product Lister Relationship Specialty Start Date End Date Edgar Alfredo MD PCP - General Family Practice 04/13/12 08/11/14 [address] [facility] 700 [place] [address] documented as of this encounter
--- OUTSIDE RECORDS SUMMARY | 2021-12-13 12:45 | XMS_ITS | Encounter Summary ---
:1980 Author Organization [place] Address [address] [place] [address] Care Team Providers Name Role Phone Edgar Alfredo MD Primary Care Provider Reason for Visit Reason Onset Date Comments Panel Management 06/21/2013 [email or web address] Encounter Details Date Type Department Care Team Description 06/21/2013 [facility] Jax Larsen Panel Management Clinic Ashly Carver MD ([id number]) [address] [facility] 606 [address] [address] [place] [phone] (Wo rk) Social History Tobacco Use Types Packs/Day Years Used Date Smoking Tobacco: Every Day Cigarettes 0.1 10 Smokeless Tobacco: Never Comments: 5 cigarettes a day Alcohol Use Standard Drinks/Week Comments No 0 (1 standard drink = 0.6 oz pure alcoho l) Sex Assigned at Date Recorded Female 01/14/2020 10:57 AM PORTFOLIO DIRECTOR documented as of this encounter Plan of Treatment Upcoming Encounters Date Type Specialty Care Team Description 12/20/2021 Office Visit Wound Care Luis Camara DPM [address] [place], [place] [phone] (Wo rk) 01/21/2022 PRE VISIT Gastroenterology Landon Warren, *-*HEATHER Barriga RECORDS*-* MD Luis Fernando [address] [place] [address] [address] [place], [place] [address] (Wo rk) 01/21/2022 Office Visit Gastroenterology Juanis Levi [address] [place] [phone] Luis Fernando Miles MD 6 [facility] 2A [place], [place] [phone] documented as of this encounter Visit Diagnoses Not on filedocumented in this encounter Care Teams Pad Assembler Relationship Specialty Start Date End Date Edgar Alfredo MD PCP - General Family Practice 04/13/12 08/11/14 [address] [facility] 700 [place] [phone] documented as of this encounter
--- OUTSIDE RECORDS SUMMARY | 2021-12-13 12:45 | XMS_ITS | Encounter Summary ---
:1980 Author Organization [place] Address [facility]0 [place] [address] Care Team Providers Name Role Phone Edgar Alfredo MD Primary Care Provider Reason for Visit Reason Comments Recheck Medication Encounter Details Date Type Department Care Team Description 01/07/2013 Office Visit [facility] Edgar Alfredo Opiate de pendence (H) (Primary Dx); Clinic Ashly Gauthier MD Moderate major depression (H) [address] [facility] [address] [facility] [address] [place] [phone] Social History Tobacco Use Types Packs/Day Years Used Date Smoking Tobacco: Every Day Cigarettes 0.1 10 Smokeless Tobacco: Never Comments: 5 cigarettes a day Alcohol Use Standard Drinks/Week Comments No 0 (1 standard drink = 0.6 oz pure alcoho l) Sex Assigned at Date Recorded Female 01/14/2020 10:57 AM PETROLEUM REFINING FIRER documented as of this encounter Last Filed Vital Signs Vital Sign Reading Time Taken Comments Blood Pressure 114/69 01/07/2013 11:29 AM PETROLEUM REFINING FIRER Pulse 78 01/07/2013 11:29 AM PETROLEUM REFINING FIRER Temperature 36.4 ??C (97.6 ??F) 01/07/2013 11:29 AM PETROLEUM REFINING FIRER Respiratory Rate - - Oxygen Saturation 98% 01/07/2013 11:29 AM PETROLEUM REFINING FIRER Inhaled Oxygen Concentration - - Weight 69.4 kg (153 lb) 01/07/2013 11:29 AM PETROLEUM REFINING FIRER Height 166.4 cm (5' 5.5) 01/07/2013 11:29 AM PETROLEUM REFINING FIRER Body Mass Index 25.07 01/07/2013 11:29 AM PETROLEUM REFINING FIRER documented in this encounter Progress Notes Edgar Alfredo MD - 01/09/2013 7:50 AM CST Stephani Parker is here for a periodic Suboxone follow-up. Since last visit patient has been: stable. There has been: no craving. Cues to use and relapse triggers have been: mild. Recovery program has been: active. Uses her buddhist Contact with sponsor has been: no sponsor. [...] relapse, and establishing a solid recovery program. OLEUM REFINING FIRER documented in this encounter Nursing Notes 01/07/2013 [...] Visit Wound Care Luis Camara, DPCamryn [address]09 [place] [address] (Wo rk) 01/21/2022 PRE VISIT Gastroenterology Landon Warren, *-*WANDAIN G RECORDS*-* MD Luis Fernando 6 [facility] 2A [place], [place] [address] (Wo rk) 01/21/2022 Office Visit Gastroenterology Juanis Levi [address] [place] [phone] Luis Fernando Miles MD [address] [place] [phone] documented as of this encounter Visit Diagnoses Diagnosis Opiate dependence (H) - Primary Opioid type dependence, unspecified Moderate major depression (H) Major depressive disorder, single episod e, moderate documented in this encounter Care Teams Log Operations Coordinator Relationship Specialty Start Date End Date Edgar Alfredo MD PCP - General Family Practice 04/13/12 08/11/14 [address] [facility] 700 [place] [address] documented as of this encounter
--- OUTSIDE RECORDS SUMMARY | 2021-12-13 12:45 | XMS_ITS | Encounter Summary ---
:1980 Author Organization [place] Address 2450 [facility] [place] [address] Care Team Providers Name Role Phone Edgar Alfredo MD Primary Care Provider Reason for Visit Reason Onset Date Comments Recheck Medication Erroneous encounter-disregard 06/07/2013 Encounter Details Date Type Department Care Team Description 06/07/2013 Office Visit [facility] Edgar Alfredo ERRONEOUS Clinic Ashly Gauthier MD ENCOUNTER--DISREGARD [address] [place] (Primary Dx) [address] [place] [address] Social History Tobacco Use Types Packs/Day Years Used Date Smoking Tobacco: Every Day Cigarettes 0.1 10 Smokeless Tobacco: Never Comments: 5 cigarettes a day Alcohol Use Standard Drinks/Week Comments No 0 (1 standard drink = 0.6 oz pure alcoho l) Sex Assigned at Date Recorded Female 01/14/2020 10:57 AM DESPATCHING AND RECEIVING CLERK documented as of this encounter Progress Notes Edgar Alfredo MD - 06/07/2013 3:14 PM CDT This encounter was opened in error. Please disregard. documented in this encounter Plan of Treatment Upcoming Encounters Date Type Specialty Care Team Description 12/20/2021 Office Visit Wound Care Luis Camara, [place] [address] [place], [place] [phone] (Wo rk) 01/21/2022 PRE VISIT Gastroenterology Landon Warren, *-*INCOMIN G RECORDS*-* MD Luis Fernando [address] [address] (Wo rk) 01/21/2022 Office Visit Gastroenterology Juanis Levi [address] [place] [address] Luis Fernando Miles MD [address] [phone] documented as of this encounter Visit Diagnoses Diagnosis ERRONEOUS ENCOUNTER--DISREGARD - Primary documented in this encounter Care Teams Food And Drug Research Scientist Relationship Specialty Start Date End Date Edgar Alfredo MD PCP - General Family Practice 04/13/12 08/11/[address] [place] [address] documented as of this encounter
--- OUTSIDE RECORDS SUMMARY | 2021-12-13 12:45 | XMS_ITS | Encounter Summary ---
:1980 Author Organization [place] Address [facility]0 [place] [address] Care Team Providers Name Role Phone Edagr Alfredo MD Primary Care Provider System, Provider Not In Primary Care Provider Unavailable [facility], [facility] Primary Care Provide r Luis Fernando Magana Primary Care Provider [facility] Primary Care Provide r Tatyana Haas VETERINARY DENTIST PASTRY FINISHER Unavailable [phone] Stephani Pina VETERINARY DENTIST PASTRY FINISHER Unavailable [phone] Tatyana Haas VETERINARY DENTIST PASTRY FINISHER Unavailable [phone] Stephani Pina VETERINARY DENTIST PASTRY FINISHER Unavailable [phone] Juanis Levi Primary Care Provider Elsa Yeh RN Unavailable Unavailable Rogelio Treadwell MD Unavailable [phone] Luis CamaraM Unavailable [phone] Camryn Christina MD Unavailable Sintia Lange PA-C Unavailable Luis Fernando Miles MD Unavailable [phone] Reason for Visit Reason Onset Date Comments Erroneous encounter-disregard 04/27/2013 Encounter Details Date Type Department Care Team Description 04/27/2013 Telephone [facility] Edgar Alfred[facility], [facility] Ashly VÁSQUEZ encounter-disregard [address] [place] [address] [place] [phone] (Wo rk) Social History Tobacco Use Types Packs/Day Years Used Date Smoking Tobacco: Every Day Cigarettes 0.1 10 Smokeless Tobacco: Never Comments: 5 cigarettes a day Alcohol Use Standard Drinks/Week Comments No 0 (1 standard drink = 0.6 oz pure alcoho l) Sex Assigned at Date Recorded Female 01/14/2020 10:57 AM REAL ESTATE PROCESSOR documented as of this encounter Plan of Treatment Upcoming Encounters Date Type Specialty Care Team Description 12/20/2021 Office Visit Wound Care Luis Camara, [place] [address] [place], [place] [address] (Wo rk) 01/21/2022 PRE VISIT Gastroenterology Landon Warren, *-*INCOMIN G RECORDS*-* MD Luis Fernando [address] [place] [address] [phone] (Wo rk) 01/21/2022 Office Visit Gastroenterology Juanis Levi [address] [place] [address] Luis Fernando Miles MD [address] [place] [phone] documented as of this encounter Visit Diagnoses Not on filedocumented in this encounter Additional Health Concerns Infection Onset Date Last Indicated Resolved Time MRSAComment: Added from external infection. 11/07/201406/18 documented as of this encounter Care Teams Leather Finisher Relationship Specialty Start Date End Date Edgar Alfredo, PCP - General Family Practice 04/13/1208/11 [address] [facility] [place] [address] [place] [address] System, Provider Not PCP - General Clinic 08/12/14 7 In Clinic, [facility] PCP - General 07/14/[address] [phone] Fernando Magana PCP - General Family Practice 12/07/16 01/19/[address] [phone] Clinic, [facility] PCP - General 01/20/[address] [phone] Juanis Levi PCP - General Addiction Medicine 06/29/21 [address] [place] [phone] Tatyana Haas, Assigned PCP 08/02/18 01/29/20 VETERINARY DENTIST PASTRY FINISHER [facility] [address] [facility] [address] [place] [address] Stephani Pina, Assigned PCP 01/30/20 12/30/20 VETERINARY DENTIST PASTRY FINISHER 606 [address] [address] [place] [address] Tatyana Haas, Assigned PCP 12/31/20 02/24/21 VETERINARY DENTIST PASTRY FINISHER [facility] [address] [facility] [address]. [address] [place] [address] Stephani Pina, Assigned PCP 02/25/21 VETERINARY DENTIST PASTRY FINISHER [address] [place] [address] [place], [place] [address] Elsa Yeh, Registered Nurse Infectious Diseases 07/25/21 Rogelio Wilson Assigned Musculoskeletal 08/04/21 MD August Provider [address] [place], [place] [phone] Luis Camara MD Podiatry 08/16/21 [place] Burnett [address] [place], [place] [phone] Camryn Christina Assigned Surgical 09/01/21 09/07/21 MD Lexie Provider [address] [facility] [address] [place] [address] Sintia Lange PA-C Assigned Surgical 09/08/21 909 [facility] 4TH Provider FLOOR [place], [place] [address] Landon Warren MD Gastroenterology 11/21/21 MD Luis Fernando 516 [facility] [address] [place], [place] [address] documented as of this encounter
--- OUTSIDE RECORDS SUMMARY | 2021-12-13 12:45 | XMS_ITS | Encounter Summary ---
:1980 Author Organization [place] Address 2450 [facility] [place] [address] Care Team Providers Name Role Phone Edgar Alfredo MD Primary Care Provider Encounter Details Date Type Department Care Team Description 07/08/2013 Orders Only [facility] Opi ate dependence (H) [place] [address] [address] [place], [place] [phone] Social History Tobacco Use Types Packs/Day Years Used Date Smoking Tobacco: Every Day Cigarettes 0.1 10 Smokeless Tobacco: Never Comments: 5 cigarettes a day Alcohol Use Standard Drinks/Week Comments No 0 (1 standard drink = 0.6 oz pure alcoho l) Sex Assigned at Date Recorded Female 01/14/2020 10:57 AM 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 documented as of this encounter Plan of Treatment Upcoming Encounters Date Type Specialty Care Team Description 12/20/2021 Office Visit Wound Care Luis Camara DPM [address]09 [place], [place] [phone] (Wo rk) 01/21/2022 PRE VISIT Gastroenterology Landon Warren, *-*HEATHER Barriga RECORDS*-* MD Luis Fernando 516 [facility] 2[facility] [place], [place] [phone] (Wo rk) 01/21/2022 Office Visit Gastroenterology Juanis Levi [address] [place] [address] Luis Fernando Miles MD [address] [place] [address] 2[address] [place] [address] documented as of this encounter Procedures Procedure [...] Buprenorphine Qual Urine (07/08/2013 12:56 PM CDT) Patholo gist Method Time Signature Buprenorphine Positive RJ LAB Qual Urine Specimen Anatomical Collection Method Collection Time Receive d Time (Source) Location / / Volume Laterality Urine specimen 07/08/2013 12:56 4 1:01 (specimen) PM CDT PM CDT Edgar Alfredo MD LAB - URINE ORDERABLES Performing Organization Address City/[facility] [place] [address] [facility] Building [address] [place] [address] [address] LAB Drug abuse screen (NL, RW) (07/08/2013 12:56 PM CDT) [facility] Method Time Signature Methamphetamine Negative RJ LAB Qual Urine Cocaine Qual Urine Negative NEG LAB Cannabinoids Qual Negative NEG RJ LAB Urine MDMA Qual Urine Negative NEG RJ LAB Methadone Qual Negative NEG RJ LAB Urine Opiates Qualitative Negative NEG LAB Urine Benzodiazepine Qual Negative NEG LAB Urine Tricyc Anti Qual Negative NEG [...] - URINE ORDERABLES Performing Organization Address City/[facility]/[place] [address] [facility] Building [address] RJ LAB documented in this encounter Visit Diagnoses Diagnosis Opiate dependence (H) Opioid type dependence, unspecified documented in this encounter Care Teams Mash Tub Cooker Relationship Specialty Start Date End Date Edgar Alfredo MD PCP - General Family Practice 04/13/[address] [place] [address] [place] [address] documented as of this encounter
--- OUTSIDE RECORDS SUMMARY | 2021-12-13 12:45 | XMS_ITS | Encounter Summary ---
:1980 Author Organization [place] Address 2450 [facility] [place] [address] Care Team Providers Name Role Phone Edgar Alfredo MD Primary Care Provider Reason for Visit Reason Onset Date Comments Recheck Medication Erroneous encounter-disregard 04/29/2013 Encounter Details Date Type Department Care Team Description 04/26/2013 Office Visit [facility] Edgar Alfredo ERRONEOUS Clinic Ashly Gauthier MD ENCOUNTER--DISREGARD [address] [place] (Primary Dx) [address] [place] [address] Social History Tobacco Use Types Packs/Day Years Used Date Smoking Tobacco: Every Day Cigarettes 0.1 10 Smokeless Tobacco: Never Comments: 5 cigarettes a day Alcohol Use Standard Drinks/Week Comments No 0 (1 standard drink = 0.6 oz pure alcoho l) Sex Assigned at Date Recorded Female 01/14/2020 10:57 AM OUTCOMES ANALYST documented as of this encounter Progress Notes Edgar Alfredo MD - 04/29/2013 10:09 AM CDT This encounter was opened in error. Please disregard. documented in this encounter Plan of Treatment Upcoming Encounters Date Type Specialty Care Team Description 12/20/2021 Office Visit Wound Care Luis Camara, [place] [address] [place], [place] [phone] (Wo rk) 01/21/2022 PRE VISIT Gastroenterology Landon Warren, *-*INCOMIN G RECORDS*-* MD Luis Fernando [address] [address] (Wo rk) 01/21/2022 Office Visit Gastroenterology Juanis Levi [address] [place] [address] Luis Fernando Miles MD [address] [phone] documented as of this encounter Visit Diagnoses Diagnosis ERRONEOUS ENCOUNTER--DISREGARD - Primary documented in this encounter Care Teams Luggage Attendant Relationship Specialty Start Date End Date Edgar Alfredo MD PCP - General Family Practice 04/13/12 08/11/[address] [place] [phone] documented as of this encounter
--- OUTSIDE RECORDS SUMMARY | 2021-12-13 12:45 | XMS_ITS | Encounter Summary ---
:1980 Author Organization [place] Address [facility]0 [place] [address] Care Team Providers Name Role Phone Edgar Alfredo MD Primary Care Provider System, Provider Not In Primary Care Provider Unavailable [facility], [facility] Primary Care Provide r Luis Fernando Magana Primary Care Provider [facility] Primary Care Provide r Tatyana Haas OIL PROCESSING TECHNICIAN PROPOSAL DEVELOPMENT MANAGER Unavailable [phone] Stephani Pina OIL PROCESSING TECHNICIAN PROPOSAL DEVELOPMENT MANAGER Unavailable [phone] Tatyana Haas OIL PROCESSING TECHNICIAN PROPOSAL DEVELOPMENT MANAGER Unavailable [phone] Stephani Pina OIL PROCESSING TECHNICIAN PROPOSAL DEVELOPMENT MANAGER Unavailable [phone] Juanis Levi Primary Care Provider Elsa Yeh RN Unavailable Unavailable Rogelio Treadwell MD Unavailable [phone] Luis CamaraM Unavailable [phone] Camryn Christina MD Unavailable Sintia Lange PA-C Unavailable Luis Fernando Miles MD Unavailable [phone] Reason for Visit Reason Onset Date Comments Other 01/08/2013 Encounter Details Date Type Department Care Team Description 01/08/2013 Telephone [facility] Nithya Alfredo MD Other [place] [address] [place] [address] [address] [place], [place] [address] [address] [place], [place] [address] [phone] Social History Tobacco Use Types Packs/Day Years Used Date Smoking Tobacco: Every Day Cigarettes 0.1 10 Smokeless Tobacco: Never Comments: 5 cigarettes a day Alcohol Use Standard Drinks/Week Comments No 0 (1 standard drink = 0.6 oz pure alcoho l) Sex Assigned at Date Recorded Female 01/14/2020 10:57 AM DATA PROCESSING CONSULTANT documented as of this encounter Miscellaneous Notes Telephone Encounter - Chapis Diaz - 02/15/2013 12:01 PM CST PROCESSING CONSULTANT Telephone Encounter - Sintia Colon - 01/08/2013 [...] can for the ok. Sintia Colon RN PROCESSING CONSULTANT Telephone Encounter - Carmencita Blair - 01/08/2013 2:16 PM CST Pt accidentally took urine sample home yesterday that Dr. Alfredo was requesting and took medical ride so was unable to bring urine sample back, pt wants to know if she needs to come back right away for urine sample again Pt can be reached at [phone] PROCESSING CONSULTANT documented in this encounter Plan of Treatment Upcoming Encounters Date Type Specialty Care Team Description 12/20/2021 Office Visit Wound Care Luis Camara, [place] [address]09 [place] [address] (Wo rk) 01/21/2022 PRE VISIT Gastroenterology Landon Warren, *-*WANDAIN G RECORDS*-* MD Luis Fernando 516 [facility] 2A [place] [address] (Wo rk) 01/21/2022 Office Visit Gastroenterology Juanis Levi 2450 [place] [address] Luis Fernando Miles MD [address] [address] documented as of this encounter Visit Diagnoses Diagnosis Opiate dependence (H) - Primary Opioid type dependence, unspecified documented in this encounter Additional Health Concerns Infection Onset Date Last Indicated Resolved Time MRSAComment: Added from external infection. 11/07/201406/18 documented as of this encounter Care Teams Gyroscopic Instrument Mechanic Relationship Specialty Start Date End Date Edgar Alfredo, PCP - General Family Practice 04/13/1208/11 [address] [facility] S [facility] 700 [place] [phone] System, Provider Not PCP - General Clinic 08/12/14 7 In Clinic, [facility] PCP - General 07/14/[address] [address] Luis Fernando Magana PCP - General Family Practice 12/07/16 01/19/[address] [phone] Clinic, [facility] PCP - General 01/20/[address] [address] Juanis Levi PCP - General Addiction Medicine 06/29/21 2450 [place] [phone] Tatyana Haas, Assigned PCP 08/02/18 01/29/20 OIL PROCESSING TECHNICIAN PROPOSAL DEVELOPMENT MANAGER [facility] [address] [facility] [address] [place], [place] [address] Stephani Pina, Assigned PCP 01/30/20 12/30/20 OIL PROCESSING TECHNICIAN PROPOSAL DEVELOPMENT MANAGER [address] [place] [address] [place], [place] [address] Tatyana Haas, Assigned PCP 12/31/20 02/24/21 OIL PROCESSING TECHNICIAN PROPOSAL DEVELOPMENT MANAGER [facility] [address] [facility] [address] [place], [place] [address] Stephani Pina, Assigned PCP 02/25/21 OIL PROCESSING TECHNICIAN PROPOSAL DEVELOPMENT MANAGER [address] [place] [address] [place], [place] [address] Elsa Yeh, Registered Nurse Infectious Diseases 07/25/21 Rogelio Wilson Assigned Musculoskeletal 08/04/21 MD August Provider 9 [place], [place] [phone] Luis Camara MD Podiatry 08/16/21 [place] 9 [place], [place] [phone] Camryn Christina Assigned Surgical 09/01/21 09/07/21 MD Lexie Provider 420 [facility] 195 [place] [address] Sintia Lange PA-C Assigned Surgical 09/08/21 909 [facility] 4TH [place] [address] Landon Warren MD Gastroenterology 11/21/21 MD Luis Fernando 516 [facility] [address] [place] [address] documented as of this encounter
--- OUTSIDE RECORDS SUMMARY | 2021-12-13 12:45 | XMS_ITS | Encounter Summary ---
:1980 Author Organization [place] Address 2450 [facility] [place] [address] Care Team Providers Name Role Phone Edgar Alfredo MD Primary Care Provider Reason for Visit Reason Onset Date Comments Recheck Medication Erroneous encounter-disregard 03/23/2013 Encounter Details Date Type Department Care Team Description 03/23/2013 Office Visit [facility] Edgar Alfredo ERRONEOUS Clinic Ashly Gauthier MD ENCOUNTER--DISREGARD [address] [place] (Primary Dx) [address] [place] [address] Social History Tobacco Use Types Packs/Day Years Used Date Smoking Tobacco: Every Day Cigarettes 0.1 10 Smokeless Tobacco: Never Comments: 5 cigarettes a day Alcohol Use Standard Drinks/Week Comments No 0 (1 standard drink = 0.6 oz pure alcoho l) Sex Assigned at Date Recorded Female 01/14/2020 10:57 AM DIAGNOSTIC TECH documented as of this encounter Progress Notes Edgar Alfredo MD - 03/23/2013 12:43 PM CST This encounter was opened in error. Please disregard. NOSTIC TECH documented in this encounter Plan of Treatment Upcoming Encounters Date Type Specialty Care Team Description 12/20/2021 Office Visit Wound Care Luis Camara, [place] 909 [place] [address] (Wo rk) 01/21/2022 PRE VISIT Gastroenterology Landon Warren, *-*WANDAIN G RECORDS*-* MD Luis Fernando 6 [facility] 2A [place] [address] (Wo rk) 01/21/2022 Office Visit Gastroenterology Juanis Levi 2450 [place] [address] Luis Fernando Miles MD [address] [phone] documented as of this encounter Visit Diagnoses Diagnosis ERRONEOUS ENCOUNTER--DISREGARD - Primary documented in this encounter Care Teams Nurse Supervisor Relationship Specialty Start Date End Date Edgar Alfredo MD PCP - General Family Practice 04/13/12 08/11/[address] [address] documented as of this encounter
--- OUTSIDE RECORDS SUMMARY | 2021-12-13 12:45 | XMS_ITS | Encounter Summary ---
:1980 Author Organization [place] Address 2450 [facility] [place] [address] Care Team Providers Name Role Phone Edgar Alfredo MD Primary Care Provider Reason for Visit Reason Onset Date Comments Medication Request 03/15/2013 subutex Encounter Details Date Type Department Care Team Description 03/15/2013 Telephone [facility] Edgar Alfredo, [facility] ication Request Clinic Ashly VÁSQUEZ (subutex) [address] [place] [address] [place] [address] (Wo rk) Social History Tobacco Use Types Packs/Day Years Used Date Smoking Tobacco: Every Day Cigarettes 0.1 10 Smokeless Tobacco: Never Comments: 5 cigarettes a day Alcohol Use Standard Drinks/Week Comments No 0 (1 standard drink = 0.6 oz pure alcoho l) Sex Assigned at Date Recorded Female 01/14/2020 10:57 AM DENTAL INTERNSHIP documented as of this encounter Miscellaneous Notes Telephone Encounter - Suyapa Rodriguez - 03/15/2013 4:05 PM CST Pt notified [place] Telephone Encounter - Edgar Alfredo MD - 03/15/2013 3:37 PM CST 8 Day bridge called into [facility] [place] Telephone Encounter - Suyapa Rodriguez - 03/15/2013 2:48 PM CST Patient called and left VM message at 12:55p today. Said she missed her appt. due to car trouble. Has new appt. on 03/23/13. She is out of her med. Needs new Rx. She can be reached at [phone]. Suyapa Rodriguez, CLINICAL PROGRAM DIRECTOR, [employer] [place] [employer] documented in this encounter Plan of Treatment Upcoming Encounters Date Type Specialty Care Team Description 12/20/2021 Office Visit Wound Care Luis Camara, [place] [address] [place], [place] [address] (Wo rk) 01/21/2022 PRE VISIT Gastroenterology Landon Warren, *-*INCOMIN G RECORDS*-* MD Luis Fernando [address] [place] [address] 2[address] [place] [address] (Wo rk) 01/21/2022 Office Visit Gastroenterology Juanis Levi 2450 [place] [phone] Luis Fernando Miles MD [address] [place] [address] [address] [place], [place] [address] documented as of this encounter Visit Diagnoses Diagnosis Opiate dependence (H) - Primary Opioid type dependence, unspecified documented in this encounter Care Teams Tar Processing Technician Relationship Specialty Start Date End Date Edgar Alfredo MD PCP - General Family Practice 04/13/12 08/11/[address] [place] [address] 700 [place] [phone] documented as of this encounter
--- OUTSIDE RECORDS SUMMARY | 2021-12-13 12:45 | XMS_ITS | Encounter Summary ---
:1980 Author Organization [place] Address 2450 [facility] [place] [address] Care Team Providers Name Role Phone Edgar Alfredo MD Primary Care Provider Reason for Visit Reason Onset Date Comments Medication Request 05/31/2013 PA Encounter Details Date Type Department Care Team Description 05/31/2013 Telephone [facility] Edgar Alfredo, [facility] ication Request (PA) Clinic Ashly VÁSQUEZ [address] [place] [address] [place] [address] (Wo rk) Social History Tobacco Use Types Packs/Day Years Used Date Smoking Tobacco: Every Day Cigarettes 0.1 10 Smokeless Tobacco: Never Comments: 5 cigarettes a day Alcohol Use Standard Drinks/Week Comments No 0 (1 standard drink = 0.6 oz pure alcoho l) Sex Assigned at Date Recorded Female 01/14/2020 10:57 AM LOAN FUNDER documented as of this encounter Miscellaneous Notes [...] Friday, needs bridge until then. Pharmacy # [phone] Suyapa Rodriguez CMA, PHYSICIAN IN PRIVATE PRACTICE documented in this encounter Plan of Treatment Upcoming Encounters Date Type Specialty Care Team Description 12/20/2021 Office Visit Wound Care Luis Camara DPM 909 [place] [address] (Wo rk) 01/21/2022 PRE VISIT Gastroenterology Landon Warren, *-*INCOMIN G RECORDS*-* MD Luis Fernando [address] [place] [phone] (Wo rk) 01/21/2022 Office Visit Gastroenterology Juanis Levi 2450 [place] [phone] Luis Fernando Miles MD [address] [place] [phone] documented as of this encounter Visit Diagnoses Diagnosis Opiate dependence (H) Opioid type dependence, unspecified documented in this encounter Care Teams Well Surveying Engineer Relationship Specialty Start Date End Date Edgar Aflredo MD PCP - General Family Practice 04/13/12 08/11/[address] [place] [phone] documented as of this encounter
--- OUTSIDE RECORDS SUMMARY | 2021-12-13 12:45 | XMS_ITS | Encounter Summary ---
:1980 Author Organization [place] Address 2450 [facility] [place] [address] Care Team Providers Name Role Phone Edgar Alfredo MD Primary Care Provider Reason for Visit Reason Comments Recheck Medication Encounter Details Date Type Department Care Team Description 06/08/2013 Office Visit [facility] Edgar Alfredo de pendence (H) Clinic Ashly Gauthier MD [address] [place] [address] [place] [address] Social History Tobacco Use Types Packs/Day Years Used Date Smoking Tobacco: Every Day Cigarettes 0.1 10 Smokeless Tobacco: Never Comments: 5 cigarettes a day Alcohol Use Standard Drinks/Week Comments No 0 (1 standard drink = 0.6 oz pure alcoho l) Sex Assigned at Date Recorded Female 01/14/2020 10:57 AM TRAY SERVER documented as of this encounter Last Filed [...] using cuff size: large Suyapa Rodriguez CMA, EDITOR NEWSPAPER documented in this encounter Plan of Treatment Upcoming Encounters Date Type Specialty Care Team Description 12/20/2021 Office Visit Wound Care Luis Camara DPM 909 [place] [address] (Wo rk) 01/21/2022 PRE VISIT Gastroenterology Landon Warren, *-*HEATHER Barriga RECORDS*-* MD Luis Fernando [address] [address] (Wo rk) 01/21/2022 Office Visit Gastroenterology Juanis Levi 2450 [place] [phone] Luis Fernando Miles MD 516 [facility] [address] [place], [place] [address] documented as of this encounter Procedures Procedure [...] Buprenorphine Qual Urine (06/08/2013 10:49 AM CDT) [facility] gist Method Time Signature Buprenorphine Negative [facility] LAB Qual Urine Specimen Anatomical Collection Method Collection Time Receive d Time (Source) Location / / Volume Laterality Urine specimen 06/08/2013 10:49 4 (specimen) AM CDT 10:54 AM CDT Edgar Alfredo MD LAB - URINE ORDERABLES Performing Organization Address City/State/[place] [address] [facility] Building [address] [place] [address] [address] LAB Drug abuse screen (NL, RW) (06/08/2013 10:49 AM CDT) [facility] gist Method Time Signature Methamphetamine Negative [facility] LAB Qual Urine Cocaine Qual Urine Negative NEG LAB Cannabinoids Qual Negative NEG [facility] LAB Urine MDMA Qual Urine Negative NEG [facility] LAB Methadone Qual Negative NEG LAB Urine Opiates Qualitative Negative NEG [facility] LAB Urine Benzodiazepine Qual Negative NEG [facility] LAB Urine Tricyc Anti Qual Negative NEG [facility] LAB Urine Barbiturates Qual Negative NEG LAB [...] Organization Address City/State/[place] [address] [facility] Building [address] [facility] LAB documented in this encounter Visit Diagnoses Diagnosis Opiate dependence (H) Opioid type dependence, unspecified documented in this encounter Care Teams Transportation Assistant Relationship Specialty Start Date End Date Edgar Alfredo MD PCP - General Family Practice 04/13/12 08/11/[address] [place] [address] [place] [phone] documented as of this encounter
--- OUTSIDE RECORDS SUMMARY | 2021-12-13 12:45 | XMS_ITS | Encounter Summary ---
:1980 Author Organization [place] Address 2450 [facility] [place] [address] Care Team Providers Name Role Phone Edgar Alfredo MD Primary Care Provider Reason for Visit Reason Onset Date Comments Refill Request 07/05/2013 subutex Encounter Details Date Type Department Care Team Description 07/05/[address] [facility] Edgar Alfredo, Ref ill Request Clinic Ashly VÁSQUEZ (subutex) [address] [place] [address] [place] [address] (Wo rk) Social History Tobacco Use Types Packs/Day Years Used Date Smoking Tobacco: Every Day Cigarettes 0.1 10 Smokeless Tobacco: Never Comments: 5 cigarettes a day Alcohol Use Standard Drinks/Week Comments No 0 (1 standard drink = 0.6 oz pure alcoho l) Sex Assigned at Date Recorded Female 01/14/2020 10:57 AM SVP RESEARCH AND STRATEGIC ANALYSIS documented as of this encounter Miscellaneous Notes Telephone Encounter - Edgar Alfredo MD - 07/05/2013 3:42 PM CDT Bridge ordered Telephone Encounter - Suyapa Rodriguez [facility] - 07/05/2013 3:22 PM CDT Patient had appt tomorrow, has to take kids to doctor, rescheduled for Thurs. Ran out of meds today,needs bridge. Suyapa Rodriguez CMA, TUBE TEST TECHNICIAN documented in this encounter Plan of Treatment Upcoming Encounters Date Type Specialty Care Team Description 12/20/2021 Office Visit Wound Care Luis Camara, DPM 9[address] [place] [address] (Wo rk) 01/21/2022 PRE VISIT Gastroenterology Landon Warren, *-*HEATHER G RECORDS*-* MD Luis Fernando [address] [place] [phone] (Wo rk) 01/21/2022 Office Visit Gastroenterology Juanis Levi 2450 [place] [phone] Luis Fernando Miles MD [address] [place] [phone] documented as of this encounter Visit Diagnoses Diagnosis Opiate dependence (H) Opioid type dependence, unspecified documented in this encounter Care Teams Medical Technologist Prn Relationship Specialty Start Date End Date Edgar Alfredo MD PCP - General Family Practice 04/13/12 08/11/14 [address] [facility] S [place] [address] [place] [address] documented as of this encounter
--- OUTSIDE RECORDS SUMMARY | 2021-12-13 12:45 | XMS_ITS | Encounter Summary ---
:1980 Author Organization [place] Address [facility]0 [facility]. [address] Care Team Providers Name Role Phone Edgar Alfredo MD Primary Care Provider Reason for Visit Reason Comments Recheck Medication PHQ9 Encounter Details Date Type Department Care Team Description 12/10/2012 Office Visit [facility] Edgar Alfredo Opiate de pendence (H) (Primary Dx); Clinic Ashly Gauthier MD Moderate major depression (H) [address] [facility] [address] [place] [address] Social History Tobacco Use Types Packs/Day Years Used Date Smoking Tobacco: Every Day Cigarettes 0.1 10 Smokeless Tobacco: Never Comments: 5 cigarettes a day Alcohol Use Standard Drinks/Week Comments No 0 (1 standard drink = 0.6 oz pure alcoho l) Sex Assigned at Date Recorded Female 01/14/2020 10:57 AM 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 Carloine Colon, RN >> BRYNN HAMMOND [facility] Dec 10, 2012 5:20 PM Patient [...] Description 12/20/2021 Office Visit Wound Care Luis Camraa, DPM 909 [place] [address] (Wo rk) 01/21/2022 PRE VISIT Gastroenterology Landon Warren, *-*WANDAIN G RECORDS*-* MD Luis Fernando 516 [facility] 2A [place] [address] (Wo rk) 01/21/2022 Office Visit Gastroenterology Juanis Levi 2450 [place] [phone] Luis Fernando Miles MD [address] [address] documented as of this encounter Visit Diagnoses Diagnosis Opiate dependence (H) - Primary Opioid type dependence, unspecified Moderate major depression (H) Major depressive disorder, single episod e, moderate documented in this encounter Care Teams Guest Relations Agent Relationship Specialty Start Date End Date Edgar Alfredo MD PCP - General Family Practice 04/13/12 08/11/14 [address] [facility] S [place] [address] [place] [phone] documented as of this encounter
--- OUTSIDE RECORDS SUMMARY | 2021-12-13 12:45 | XMS_ITS | Encounter Summary ---
:1980 Author Organization [place] Address 2450 [facility] [place] [address] Care Team Providers Name Role Phone Edgar Alfredo MD Primary Care Provider Encounter Details Date Type Department Care Team Description 05/28/2013 Medical Correspondence [facility] Edgar Alfredo MD Denial of Clinic Ashly Gauthier MD Buprenorphine [address]MG [address] 05/28/13 [address] [place] 700 [facility], [address] [place] [address] Social History Tobacco Use Types Packs/Day Years Used Date Smoking Tobacco: Every Day Cigarettes 0.1 10 Smokeless Tobacco: Never Comments: 5 cigarettes a day Alcohol Use Standard Drinks/Week Comments No 0 (1 standard drink = 0.6 oz pure alcoho l) Sex Assigned at Date Recorded Female 01/14/2020 10:57 AM STEAM GIGGER documented as of this encounter Plan of Treatment Upcoming Encounters Date Type Specialty Care Team Description 12/20/2021 Office Visit Wound Care Luis Camara DPM 909 [place], [place] [address] (Wo rk) 01/21/2022 PRE VISIT Gastroenterology Landon Warren, *-*HEATHER Barriga RECORDS*-* MD Luis Fernando 516 [facility] 2A [place] [address] (Wo rk) 01/21/2022 Office Visit Gastroenterology Juanis Levi 2450 [place] [phone] Luis Fernando Miles MD 516 [facility] 2[address] [place], [place] [address] documented as of this encounter Visit Diagnoses Not on filedocumented in this encounter Care Teams Roofer Vinyl Coating Relationship Specialty Start Date End Date Edgar Alfredo MD PCP - General Family Practice 04/13/12 08/11/14 [address] [facility] 700 [place] [phone] documented as of this encounter
--- OUTSIDE RECORDS SUMMARY | 2021-12-13 12:45 | XMS_ITS | Encounter Summary ---
:1980 Author Organization [place] Address 2450 [facility] [place] [address] Care Team Providers Name Role Phone Edgar Alfredo MD Primary Care Provider Reason for Visit Reason Onset Date Comments Refill Request 04/22/2013 Subox bridge Encounter Details Date Type Department Care Team Description 04/22/2013 Refill [facility] [place] [facility] Edgar Alfredo , Refill Request ([facility] MD lundberg) [address] [place] [address] [place] [phone] (Wo rk) Social History Tobacco Use Types Packs/Day Years Used Date Smoking Tobacco: Every Day Cigarettes 0.1 10 Smokeless Tobacco: Never Comments: 5 cigarettes a day Alcohol Use Standard Drinks/Week Comments No 0 (1 standard drink = 0.6 oz pure alcoho l) Sex Assigned at Date Recorded Female 01/14/2020 10:57 AM TRAINING AND DEVELOPMENT 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 NING AND DEVELOPMENT COORDINATOR documented in this encounter Plan of Treatment Upcoming Encounters Date Type Specialty Care Team Description 12/20/2021 Office Visit Wound Care [place], Luis Lex, DPM 909 [place] [address] (Wo rk) 01/21/2022 PRE VISIT Gastroenterology Landon Warren, *-*INCOMIN G RECORDS*-* MD Luis Fernando [address] [address] (Wo rk) 01/21/2022 Office Visit Gastroenterology Juanis Levi 2450 [place] [phone] Luis Fernando Miles MD [address] [address] documented as of this encounter Visit Diagnoses Diagnosis Opiate dependence (H) - Primary Opioid type dependence, unspecified documented in this encounter Care Teams Side Show Entertainer Relationship Specialty Start Date End Date Edgar Alfredo MD PCP - General Family Practice 04/13/12 08/11/[address] [address] documented as of this encounter
--- OUTSIDE RECORDS SUMMARY | 2021-12-13 12:45 | XMS_ITS | Encounter Summary ---
:1980 Author Organization [place] Address [address] [facility] [place] [address] Care Team Providers Name Role Phone Edgar Alfredo MD Primary Care Provider Reason for Visit Reason Onset Date Comments Recheck Medication Erroneous encounter-disregard 04/26/2013 Encounter Details Date Type Department Care Team Description 04/22/2013 Office Visit [facility] Edgar Alfredo ERRONEOUS Clinic Ashly Gauthier MD ENCOUNTER--DISREGARD [address] [place] (Primary Dx) [address] [place] [phone] Social History Tobacco Use Types Packs/Day Years Used Date Smoking Tobacco: Every Day Cigarettes 0.1 10 Smokeless Tobacco: Never Comments: 5 cigarettes a day Alcohol Use Standard Drinks/Week Comments No 0 (1 standard drink = 0.6 oz pure alcoho l) Sex Assigned at Date Recorded Female 01/14/2020 10:57 AM NUCLEAR 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 Please disregard. documented in this encounter Plan of Treatment Upcoming Encounters Date Type Specialty Care Team Description 12/20/2021 Office Visit Wound Care Luis Camara, [place] [address] [place], [place] [phone] (Wo rk) 01/21/2022 PRE VISIT Gastroenterology Landon Warren, *-*INCOMIN G RECORDS*-* MD Luis Fernando [address] [address] (Wo rk) 01/21/2022 Office Visit Gastroenterology Juanis Levi 2450 [place] [address] Luis Fernando Miles MD [address] [phone] documented as of this encounter Visit Diagnoses Diagnosis ERRONEOUS ENCOUNTER--DISREGARD - Primary documented in this encounter Care Teams Concrete Hopper Operator Relationship Specialty Start Date End Date Edgar Alfredo MD PCP - General Family Practice 04/13/12 08/11/[address] [place] [phone] documented as of this encounter
--- OUTSIDE RECORDS SUMMARY | 2021-12-13 12:45 | XMS_ITS | Encounter Summary ---
:1980 Author Organization [place] Address [address] [place] [address] Care Team Providers Name Role Phone Edgar Alfredo MD Primary Care Provider Reason for Visit Reason Onset Date Comments Recheck Medication Erroneous encounter-disregard 05/17/2013 Encounter Details Date Type Department Care Team Description 05/17/2013 Office Visit [facility] Edgar Alfredo de pendence (H) (Primary Dx); Clinic Ashly Gauthier MD ERRONEOUS ENCOUNTER--DISREGARD [address] [place] [address] [place] [phone] Social History Tobacco Use Types Packs/Day Years Used Date Smoking Tobacco: Every Day Cigarettes 0.1 10 Smokeless Tobacco: Never Comments: 5 cigarettes a day Alcohol Use Standard Drinks/Week Comments No 0 (1 standard drink = 0.6 oz pure alcoho l) Sex Assigned at Date Recorded Female 01/14/2020 10:57 AM BUSINESS PARTNER documented as of this encounter Progress Notes Edgar Alfredo MD - 05/17/2013 3:29 PM CDT This encounter was opened in error. Please disregard. documented in this encounter Plan of Treatment Upcoming Encounters Date Type Specialty Care Team Description 12/20/2021 Office Visit Wound Care Luis Camara, [place] [address] [place], [place] [address] (Wo rk) 01/21/2022 PRE VISIT Gastroenterology Landon Warren, *-*INCOMIN G RECORDS*-* MD Luis Fernando 516 [facility] [address]A [place] [address] (Wo rk) 01/21/2022 Office Visit Gastroenterology Juanis Levi 2450 [place] [phone] Luis Fernando Miles MD [address] [phone] documented as of this encounter Visit Diagnoses Diagnosis Opiate dependence (H) - Primary Opioid type dependence, unspecified ERRONEOUS ENCOUNTER--DISREGARD documented in this encounter Care Teams Steeple Jack Relationship Specialty Start Date End Date Edgar Alfredo MD PCP - General Family Practice 04/13/12 08/11/14 [address] 24[address] [facility] 700 [place] [phone] documented as of this encounter
--- OUTSIDE RECORDS SUMMARY | 2021-12-13 12:45 | XMS_ITS | Encounter Summary ---
:1980 Author Organization [place] Address 24[address] [facility] [place] [address] Care Team Providers Name Role Phone Edgar Alfredo MD Primary Care Provider Reason for Visit Reason Comments Recheck Medication Encounter Details Date Type Department Care Team Description 03/25/2013 Office Visit [facility] Edgar Alfredo pendence (H) Clinic Ashly Gauthier MD (Primary Dx) [address] [place] [address] [place] [phone] Social History Tobacco Use Types Packs/Day Years Used Date Smoking Tobacco: Every Day Cigarettes 0.1 10 Smokeless Tobacco: Never Comments: 5 cigarettes a day Alcohol Use Standard Drinks/Week Comments No 0 (1 standard drink = 0.6 oz pure alcoho l) Sex Assigned at Date Recorded Female 01/14/2020 10:57 AM HOME SERVICE DIRECTOR documented as of this encounter Last Filed Vital Signs Vital Sign Reading Time Taken Comments Blood Pressure 142/74 03/25/2013 3:07 PM HOME SERVICE DIRECTOR Pulse 84 03/25/2013 3:07 PM HOME SERVICE DIRECTOR Temperature - - Respiratory Rate - [...] TOMORROW TO LEAVE URINE. TO SEE [facility]. SERVICE DIRECTOR documented in this encounter Nursing Notes 03/25/2013 3:00 PM CST >> SUYAPA MURRAY Zoe Mar 25, 2013 3:08 PM Patient presents with: Recheck Medication Initial BP 142/74 Pulse 84 Estimated Body mass index is 25.06 kg/(m^2) as calculated from the following: Height as of 01/07/13: 5' 5.5(1.664 m). Weight as of 01/07/13: 153 lb(69.4 kg). BP completed using cuff size: large Suyapa Murray, BRIM STRETCHER, LEASE ATTENDANT documented in this encounter Plan of Treatment Upcoming Encounters Date Type Specialty Care Team Description 12/20/2021 Office Visit Wound Care Luis Camara DPM 909 [place], [place] [address] (Reinaldo molina) 01/21/2022 PRE VISIT Gastroenterology Landon Warren, *-*HEATHER G RECORDS*-* MD Luis Fernando 516 [facility] 2[facility] [place], [place] [address] (Reinaldo molina) 01/21/2022 Office Visit Gastroenterology Juanis Levi 2450 [place] [address] Luis Fernando Miles MD 516 [facility] [address] [place] [address] documented as of this encounter Procedures Procedure Name Priority Date/Time Associated Diagnosis Comme nts SEND OUTS MISC TEST Routine 03/26/2013 3:45 PM Re sults for this HOME SERVICE DIRECTOR procedure are i n the results section. DRUG ABUSE SCREEN Routine 03/25/2013 3:47 PM Opiate dependence Results for this (NL, RW) HOME SERVICE DIRECTOR (H) procedure are i n the results section. documented in this encounter Results Send outs misc test (03/26/2013 3:45 PM HOME SERVICE DIRECTOR) [facility] gist Method Time Signature Test Name BUPRENORPHINE [facility] LAB Send Outs Urine [facility] Misc Test Specimen Result Negative [facility] Normal Range Negative LAB for Send Outs Misc Test Specimen Anatomical Collection Method Collection Time Receive d Time (Source) Location / / Volume Laterality 03/26/2013 3:45 PM 4 3:53 HOME SERVICE DIRECTOR PM HOME SERVICE DIRECTOR Edgar Alfredo MD LAB - BLOOD ORDERABLES Performing Organization Address City/State/[place] [address] [facility] Building [address] [place] [address] [address] [facility] Drug abuse screen (NL, RW) (03/25/2013 3:47 PM HOME SERVICE DIRECTOR) [facility] Method Time Signature Methamphetamine Negative [facility] LAB Qual Urine Cocaine Qual Urine Negative NEG LAB Cannabinoids Qual Negative NEG LAB Urine MDMA Qual Urine Negative NEG LAB Methadone Qual Negative NEG LAB Urine Opiates Qualitative Negative NEG RJ LAB Urine Benzodiazepine Qual Negative NEG RJ LAB Urine Tricyc Anti Qual Negative NEG LAB Urine Barbiturates Qual Negative NEG LAB Urine PCP Qual Urine Negative NEG LAB Amphetamine Qual Negative LAB Urine Oxycodone Qual Negative NEG LAB Urine Specimen Anatomical Collection Method Collection Time Receive d Time (Source) Location / / Volume Laterality Urine specimen 03/25/2013 3:47 PM 014 3:52 (specimen) HOME SERVICE DIRECTOR PM HOME SERVICE DIRECTOR Edgar Alfredo MD LAB - URINE ORDERABLES Performing Organization Address City/State/Z[place] [address] [facility] Building [address] [facility] documented in this encounter Visit Diagnoses Diagnosis Opiate dependence (H) - Primary Opioid type dependence, unspecified documented in this encounter Care Teams Executive Assistant To President Relationship Specialty Start Date End Date Edgar Alfredo MD PCP - General Family Practice 04/13/12 08/11/[address] [place] [address] [place] [phone] documented as of this encounter
--- OUTSIDE RECORDS SUMMARY | 2021-12-13 12:45 | XMS_ITS | Encounter Summary ---
:1980 Author Organization [place] Address [address] [facility] [place] [address] Care Team Providers Name Role Phone Edgar Alfredo MD Primary Care Provider Reason for Visit Reason Comments Recheck Medication Encounter Details Date Type Department Care Team Description 07/08/2013 Office Visit [facility] Edgar Alfredo de pendence (H) Clinic Ashly Gauthier MD [address] [place] [address] [place] [phone] Social History Tobacco Use Types Packs/Day Years Used Date Smoking Tobacco: Every Day Cigarettes 0.1 10 Smokeless Tobacco: Never Comments: 5 cigarettes a day Alcohol Use Standard Drinks/Week Comments No 0 (1 standard drink = 0.6 oz pure alcoho l) Sex Assigned at Date Recorded Female 01/14/2020 10:57 AM PROCESS ENGINEERING INTERN documented as of this encounter Progress Notes Edgar Alfredo MD - 07/08/2013 2:25 PM CDT Patient unable to make appointment due to housing meeting Will refill Drug screen neg Reduce dose next visit documented in this encounter Plan of Treatment Upcoming Encounters Date Type Specialty Care Team Description 12/20/2021 Office Visit Wound Care Luis Camara, [place] [address] [place], [place] [phone] (Wo rk) 01/21/2022 PRE VISIT Gastroenterology Landon Warren, *-*WANDAIN G RECORDS*-* MD Luis Fernando 6 [facility] 2A [place], [place] [phone] (Wo rk) 01/21/2022 Office Visit Gastroenterology Juanis Levi 2450 [place] [phone] Luis Fernando Miles MD [address] [phone] documented as of this encounter Visit Diagnoses Diagnosis Opiate dependence (H) Opioid type dependence, unspecified documented in this encounter Care Teams Timber Rider Relationship Specialty Start Date End Date Edgar Alfredo MD PCP - General Family Practice 04/13/12 08/11/14 606 24[address] [facility] 700 [place] [address] documented as of this encounter
--- OUTSIDE RECORDS SUMMARY | 2021-12-13 12:46 | XMS_ITS | Encounter Summary ---
:1980 Author Organization [place] Address [address] [facility] [address] Care Team Providers Name Role Phone Edgar Alfredo MD Primary Care Provider Reason for Visit Reason Onset Date Comments Nurse Advice Line 06/09/2012 Encounter Details Date Type Department Care Team Description 06/09/2012 Telephone [facility] Edgar Alfredo Ma rk, Nurse Advice Line Ashly VÁSQUEZ 606 24[address] [facility] [address] [place] [address] [address] [place] [phone] (Wo rk) Social History Tobacco Use Types Packs/Day Years Used Date Smoking Tobacco: Every Day Cigarettes 0.5 10 Smokeless Tobacco: Never Alcohol Use Standard Drinks/Week Comments No 0 (1 standard drink = 0.6 oz pure alcoho l) Sex Assigned at Date Recorded Female 01/14/2020 10:57 AM FUEL ATTENDANT documented as of this encounter Miscellaneous Notes Telephone Encounter - Chapis Diaz - 07/02/2012 3:09 PM CDT Old encounter closed Chapis Diaz RN Telephone Encounter - Chapis Diaz - 06/09/2012 2:38 PM CDT Plan doesn't cover subutex will call for pa [phone] Number [phone] [place]/info over phone will fax us decision Pending pa--called in already today--they will fax us today Their decision Chapis Diaz RN documented in this encounter Plan of Treatment Upcoming Encounters Date Type Specialty Care Team Description 12/20/2021 Office Visit Wound Care Luis Camara, [place] [address] [place], [place] [address] (Wo rk) 01/21/2022 PRE VISIT Gastroenterology Landon Warren, *-*WANDAIN G RECORDS*-* MD Luis Fernando [address] [place] [phone] (Wo rk) 01/21/2022 Office Visit Gastroenterology Juanis Levi 2450 [place] [phone] Luis Fernando Miles MD [address] [place] [phone] documented as of this encounter Visit Diagnoses Not on filedocumented in this encounter Care Teams Director Of Food And Nutrition Relationship Specialty Start Date End Date Edgar Alfredo MD PCP - General Family Practice 04/13/12 08/11/14 606 24[address] [facility] 700 [place] [phone] documented as of this encounter
--- OUTSIDE RECORDS SUMMARY | 2021-12-13 12:46 | XMS_ITS | Encounter Summary ---
:1980 Author Organization [place] Address [facility] [place] [address] Care Team Providers Name Role Phone Edgar Alfredo MD Primary Care Provider Reason for Visit Reason Onset Date Comments Nurse Advice Line 11/28/2012 subutex Encounter Details Date Type Department Care Team Description 11/28/2012 Telephone [facility] Edgar Alfredo Nur se Advice Line Clinic Ashly VÁSQUEZ (subutex) 606 24[address] [facility] 606 24[address] [facility] [address] [place] [phone] (Wo rk) Social History Tobacco Use Types Packs/Day Years Used Date Smoking Tobacco: Every Day Cigarettes 0.1 10 Smokeless Tobacco: Never Comments: 5 cigarettes a day Alcohol Use Standard Drinks/Week Comments No 0 (1 standard drink = 0.6 oz pure alcoho l) Sex Assigned at Date Recorded Female 01/14/2020 10:57 AM TEXTILE SCIENCE TECHNICIAN documented as of this encounter Miscellaneous Notes Telephone Encounter - Albania Brewer - 11/28/2012 12:49 PM CDT FNA: Pt said she is out of Subutex. I checked EPIC and saw that 24 had been prescribed on 11/16 whichshould last her until 12/09. Caller said she has none left. I had page op page rock mason apprentice doctor to call pt at [phone]. Albania Brewer RN [facility] [phone] Telephone Encounter - Anthony Roger, RN - [...] Route to PCP clinic Anthony Roger RN [facility] documented in this encounter Plan of Treatment Upcoming Encounters Date Type Specialty Care Team Description 12/20/2021 Office Visit Wound Care Luis Camara DPM 909 [place], [place] [address] (Wo rk) 01/21/2022 PRE VISIT Gastroenterology Landon Warren, *-*INCOMIN G RECORDS*-* MD Luis Fernando [address] [place] [phone] (Wo rk) 01/21/2022 Office Visit Gastroenterology Juanis Levi 2450 [place] [phone] Luis Fernando Miles MD [address] [place] [phone] documented as of this encounter Visit Diagnoses Not on filedocumented in this encounter Care Teams Lay Out Worker Relationship Specialty Start Date End Date Edgar Alfredo MD PCP - General Family Practice 04/13/12 08/11/14 [address] [address] documented as of this encounter
--- OUTSIDE RECORDS SUMMARY | 2021-12-13 12:46 | XMS_ITS | Encounter Summary ---
:1980 Author Organization [place] Address [facility] [place] [address] Care Team Providers Name Role Phone Edgar Workman MD Primary Care Provider Reason for Visit Reason Onset Date Comments Medication Request 08/14/2012 Encounter Details Date Type Department Care Team Description 08/14/2012 Telephone [facility] Edgar Workman Ma rk, Medication Request Ashly VÁSQUEZ 606 24[facility] [address] [place] [address] [address] [place] [phone] (Wo rk) Social History Tobacco Use Types Packs/Day Years Used Date Smoking Tobacco: Every Day Cigarettes 0.5 10 Smokeless Tobacco: Never Alcohol Use Standard Drinks/Week Comments No 0 (1 standard drink = 0.6 oz pure alcoho l) Sex Assigned at Date Recorded Female 01/14/2020 10:57 AM MONITORING ENGINEER documented as of this encounter Miscellaneous Notes Telephone Encounter - Madonna Cody - 08/17/2012 11:19 AM CDT Script for subutex was faxed to the [facility] in [place]. Telephone Encounter - Marycarmen Spence - 08/17/2012 [...] Current Dosage (if available): 8mg 3) Pharmacy: [facility] in [place] 1) Name of Med(s): wellburtin 2) Current Dosage (if available): 150MG 3) Pharmacy: [facility] in [place] Please call pt at [phone] with any additiona questions/concerns. documented in this encounter Plan of Treatment Upcoming Encounters Date Type Specialty Care Team Description 12/20/2021 Office Visit Wound Care Luis Camara, DPM 909 [place] [address] (Wo rk) 01/21/2022 PRE VISIT Gastroenterology Landon Warren, *-*WANDAIN G RECORDS*-* MD Luis Fernando [address] [place] [address] 2[address] [place], [place] [address] (Wo rk) 01/21/2022 Office Visit Gastroenterology Juanis Levi 2450 [place] [phone] Luis Fernando Miles MD [address] [place] [address] documented as of this encounter Visit Diagnoses Diagnosis Moderate major depression (H) - Primary Major depressive disorder, single episod e, moderate Opiate dependence (H) Opioid type dependence, unspecified documented in this encounter Care Teams Compliance Counsel Relationship Specialty Start Date End Date Edgar Workman MD PCP - General Family Practice 04/13/12 08/11/14 [address] 24[address] [facility] 700 [place] [phone] documented as of this encounter
--- OUTSIDE RECORDS SUMMARY | 2021-12-13 12:46 | XMS_ITS | Encounter Summary ---
:1980 Author Organization [place] Address 2450 [facility] [place] [address] Care Team Providers Name Role Phone Edgar Alfredo MD Primary Care Provider Reason for Visit Reason Onset Date Comments Refill Request 04/24/2012 Encounter Details Date Type Department Care Team Description 04/24/2012 Refill M [facility] Nithya Alfredo MD Refill Request [place] [address] [facility] [address] [place] [address] [address] [facility] [address] [place] [address] [phone] Social History Tobacco Use Types Packs/Day Years Used Date Smoking Tobacco: Every Day Cigarettes 0.5 10 Smokeless Tobacco: Never Alcohol Use Standard Drinks/Week Comments No 0 (1 standard drink = 0.6 oz pure alcoho l) Sex Assigned at Date Recorded Female 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 Marycarmen Spence RN E SUPERVISOR Telephone Encounter - Tigist Fraga - 04/24/2012 2:21 PM CST Pt ([phone]) calling, requesting a refill for wellbutrin for today, states she is out. Camacho [place] as listed in [facility]. E SUPERVISOR documented in this encounter Plan of Treatment Upcoming Encounters Date Type Specialty Care Team Description 12/20/2021 Office Visit Wound Care Luis Camara, [place] [address] [place] [address] (Wo rk) 01/21/2022 PRE VISIT Gastroenterology Landon Warren, *-*HEATHER G RECORDS*-* MD Luis Fernando [address] [place] [phone] (Wo rk) 01/21/2022 Office Visit Gastroenterology Juanis Levi 2450 [place] [phone] Luis Fernando Miles MD [address] [place] [phone] documented as of this encounter Visit Diagnoses Diagnosis Moderate major depression (H) - Primary Major depressive disorder, single episod e, moderate documented in this encounter Care Teams Leather Scraper Relationship Specialty Start Date End Date Edgar Alfredo MD PCP - General Family Practice 04/13/12 08/11/14 [address] [phone] documented as of this encounter
--- OUTSIDE RECORDS SUMMARY | 2021-12-13 12:46 | XMS_ITS | Encounter Summary ---
:1980 Author Organization [place] Address 2450 [facility] [place] [address] Care Team Providers Name Role Phone Edgar Alfredo MD Primary Care Provider Reason for Visit Reason Onset Date Comments Refill Request 04/30/2012 Encounter Details Date Type Department Care Team Description 04/30/2012 Refill [facility] Nithya Alfredo MD Refill Request [place] [address] [facility] [address] [place] [address] Suite [facility] [address] [place] [address] [phone] Social History Tobacco Use Types Packs/Day Years Used Date Smoking Tobacco: Every Day Cigarettes 0.5 10 Smokeless Tobacco: Never Alcohol Use Standard Drinks/Week Comments No 0 (1 standard drink = 0.6 oz pure alcoho l) Sex Assigned at Date Recorded Female 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 Telephone Encounter - Sintia Colon - 04/30/2012 [...] be left. Please let her know status at:[phone]. documented in this encounter Plan of Treatment Upcoming Encounters Date Type Specialty Care Team Description 12/20/2021 Office Visit Wound Care Luis Camara DPM 909 [place], [place] [phone] (Wo rk) 01/21/2022 PRE VISIT Gastroenterology Landon Warren, *-*HEATHER G RECORDS*-* MD Luis Fernando 516 [facility] 2A [place], [place] [address] (Wo rk) 01/21/2022 Office Visit Gastroenterology Juanis Levi 2450 [facility] [place] [phone] Luis Fernando Miles MD 6 [facility] 2A [place] [address] documented as of this encounter Visit Diagnoses Diagnosis Opiate dependence (H) - Primary Opioid type dependence, unspecified documented in this encounter Care Teams Batch Analyst Relationship Specialty Start Date End Date Edgar Alfredo MD PCP - General Family Practice 04/13/12 [address] [place] [address] S [facility] 700 [place] [address] documented as of this encounter
--- OUTSIDE RECORDS SUMMARY | 2021-12-13 12:46 | XMS_ITS | Encounter Summary ---
:1980 Author Organization [place] Address [address] [facility] [place] [address] Care Team Providers Name Role Phone Edgar Alfredo MD Primary Care Provider Reason for Visit Reason Onset Date Comments Call Back 07/14/2012 Encounter Details Date Type Department Care Team Description 07/14/2012 Telephone [facility] Nithya Alfredo MD Call Back [place] [facility] [address] [place], [place] Suite [facility] [address] [place] [phone] Social History Tobacco Use Types Packs/Day Years Used Date Smoking Tobacco: Every Day Cigarettes 0.5 10 Smokeless Tobacco: Never Alcohol Use Standard Drinks/Week Comments No 0 (1 standard drink = 0.6 oz pure alcoho l) Sex Assigned at Date Recorded Female 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 Telephone Encounter - Edgar Alfredo MD - 07/14/2012 10:58 AM CDT Took more than prescribed; now has one left; for breech 07/20/12 Advised 2 mg per day until 07/19/12 Appointment here after 5 Subutex ordered Telephone Encounter - Tigist Fraga - 07/14/2012 9:50 AM CDT Pt ([phone]) calling, states her dosage for subutex was [...] Visit Wound Care Luis Camara DPM 909 [place] [address] (Wo rk) 01/21/2022 PRE VISIT Gastroenterology Landon Warren, *-*INCOMIN G RECORDS*-* MD Luis Fernando [address] [place] [address] (Wo rk) 01/21/2022 Office Visit Gastroenterology Juanis Levi 2450 [place] [address] Luis Fernando Miles MD [address] [place] [phone] documented as of this encounter Visit Diagnoses Diagnosis Opiate dependence (H) - Primary Opioid type dependence, unspecified documented in this encounter Care Teams Galley Worker Relationship Specialty Start Date End Date Edgar Alfredo MD PCP - General Family Practice 04/13/12 08/11/[address] [place] [address] 700 [place] [address] documented as of this encounter
--- OUTSIDE RECORDS SUMMARY | 2021-12-13 12:46 | XMS_ITS | Encounter Summary ---
:1980 Author Organization [place] Address [address] [place] [address] Care Team Providers Name Role Phone Edgar Alfredo MD Primary Care Provider Reason for Visit Reason Comments Recheck Medication Encounter Details Date Type Department Care Team Description 06/09/2012 Office Visit [facility] Edgar Alfredo Opiate de pendence (H) Clinic Ashly Gauthier MD (Primary Dx) [address] [facility] [address] [facility] [address] [place] [phone] Social History Tobacco Use Types Packs/Day Years Used Date Smoking Tobacco: Every Day Cigarettes 0.5 10 Smokeless Tobacco: Never Alcohol Use Standard Drinks/Week Comments No 0 (1 standard drink = 0.6 oz pure alcoho l) Sex Assigned at Date Recorded Female 01/14/2020 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 >> ROSALINE VAZQUEZ FriJun 09, 2012 11:29 AM Please abstract the following data from this visit with this patient into the appropriate field in Epic: Pap smear done on this date: 05/30 (approximately), by this group: [facility], results were Abnormal, will recheck in 1 [...] completed using cuff size: regular Rosaline Vazquez SKI MOLDER documented in this encounter Plan of Treatment Upcoming Encounters Date Type Specialty Care Team Description 12/20/2021 Office Visit Wound Care Luis Camara, DPM 909 [place], [place] [phone] (Wo rk) 01/21/2022 PRE VISIT Gastroenterology Landon Warren, *-*WANDAIN G RECORDS*-* MD Luis Fernando 516 [facility] 2A [place], [place] [address] (Wo rk) 01/21/2022 Office Visit Gastroenterology Juanis Levi 2450 [place] [phone] Luis Fernando Miles MD 516 [facility] [address]A [place] [address] documented as of this encounter Visit Diagnoses Diagnosis Opiate dependence (H) - Primary Opioid type dependence, unspecified documented in this encounter Care Teams Manager Power Relationship Specialty Start Date End Date Edgar Alfredo MD PCP - General Family Practice 04/13/12 08/11/14 606 24[address] [facility] [place] 700 [place] [phone] documented as of this encounter
--- OUTSIDE RECORDS SUMMARY | 2021-12-13 12:46 | XMS_ITS | Encounter Summary ---
:1980 Author Organization [place] Address [facility]0 [place] [address] Care Team Providers Name Role Phone Edgar Alfredo MD Primary Care Provider Reason for Visit Reason Onset Date Comments RECHECK PHQ9-PCP patient nee ds DAP/letters Erroneous encounter-disregard 07/26/2012 Encounter Details Date Type Department Care Team Description 07/23/2012 Office Visit [facility] Edgar Alfredo Moderate major depression (H) (Primary Dx); Clinic Ashly Gauthier MD ERRONEOUS ENCOUNTER--DISREGARD [address] [place] [address] [place] [address] [address] [place] [address] Social History Tobacco Use Types Packs/Day Years Used Date Smoking Tobacco: Every Day Cigarettes 0.5 10 Smokeless Tobacco: Never Alcohol Use Standard Drinks/Week Comments No 0 (1 standard drink = 0.6 oz pure alcoho l) Sex Assigned at Date Recorded Female 01/14/2020 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 Please disregard. documented in this encounter Plan of Treatment Upcoming Encounters Date Type Specialty Care Team Description 12/20/2021 Office Visit Wound Care Luis Camara, [place] 909 [place] [address] (Wo rk) 01/21/2022 PRE VISIT Gastroenterology Landon Warren, *-*INCOMIN G RECORDS*-* MD Luis Fernando [address] [place] [address] 2[address] [place] [address] (Wo rk) 01/21/2022 Office Visit Gastroenterology Juanis Levi 2450 [place] [address] Luis Fernando Miles MD [address] [address] documented as of this encounter Visit Diagnoses Diagnosis Moderate major depression (H) - Primary Major depressive disorder, single episod e, moderate ERRONEOUS ENCOUNTER--DISREGARD documented in this encounter Care Teams Program Project Analyst Relationship Specialty Start Date End Date Edgar Alfredo MD PCP - General Family Practice 04/13/12 08/11/14 606 24[address] [facility] 700 [place] [phone] documented as of this encounter
--- OUTSIDE RECORDS SUMMARY | 2021-12-13 12:46 | XMS_ITS | Encounter Summary ---
:1980 Author Organization [place] Address [facility] [place] [address] Care Team Providers Name Role Phone Edgar Alfredo MD Primary Care Provider Reason for Visit Reason Onset Date Comments Prior Authorization 05/20/2012 suboxone Encounter Details Date Type Department Care Team Description 05/20/2012 Telephone [facility] Edgar Alfredo Prior Aut horization Clinic Ashly Gauthier MD (suboxone) 606 24[address] [facility] [address] [place] [address] [address] [place] [address] Social History Tobacco Use Types Packs/Day Years Used Date Smoking Tobacco: Every Day Cigarettes 0.5 10 Smokeless Tobacco: Never Alcohol Use Standard Drinks/Week Comments No 0 (1 standard drink = 0.6 oz pure alcoho l) Sex Assigned at Date Recorded Female 01/14/2020 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 documented as of this encounter Miscellaneous Notes [...] Visit Wound Care Luis Camara, [place] 909 [place], [place] [phone] (Wo rk) 01/21/2022 PRE VISIT Gastroenterology Landon Warren, *-*INCOMIN G RECORDS*-* MD Luis Fernando [address] [place] [address] 2[address] [place] [address] (Wo rk) 01/21/2022 Office Visit Gastroenterology Juanis Levi 2450 [place] [phone] Luis Fernando Miles MD [address] [phone] documented as of this encounter Visit Diagnoses Not on filedocumented in this encounter Care Teams Administrative Court Justice Relationship Specialty Start Date End Date Edgar Alfredo MD PCP - General Family Practice 04/13/12 08/11/[address] [place] [address] documented as of this encounter
--- OUTSIDE RECORDS SUMMARY | 2021-12-13 12:46 | XMS_ITS | Encounter Summary ---
:1980 Author Organization [place] Address [facility] [place] [address] Care Team Providers Name Role Phone Edgar Alfredo MD Primary Care Provider Reason for Visit Reason Onset Date Comments Refill Request 10/30/2012 subutex 8mg Encounter Details Date Type Department Care Team Description 10/30/2012 Refill [facility] Edgar Alfredo, Ref ill Request (subutex Clinic [place] 8mg) 606 24[address] [facility] 606 24TH [facility] 813 700 [place] [phone] (Wo rk) Social History Tobacco Use Types Packs/Day Years Used Date Smoking Tobacco: Every Day Cigarettes 0.1 10 Smokeless Tobacco: Never Comments: 5 cigarettes a day Alcohol Use Standard Drinks/Week Comments No 0 (1 standard drink = 0.6 oz pure alcoho l) Sex Assigned at Date Recorded Female 01/14/2020 10:57 AM 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 I have cancelled the RX at [...] a new pharmacy and that is the [facility] off of [address] and their telephone number is [phone]. Any questions she can bereached at [phone]. Telephone Encounter - Natanael Lima - 10/30/2012 9:46 AM CDT Last Fill Date: 10-08-12 Last Quantity: 34 Danisha Ornelas Corporate Human Resources Manager [facility]: [place] Please call patient with any questions at [phone] documented in this encounter Plan of Treatment Upcoming Encounters Date Type Specialty Care Team Description 12/20/2021 Office Visit Wound Care Luis Camara DPM 909 [place], [place] [phone] (Wo rk) 01/21/2022 PRE VISIT Gastroenterology Landon Warren, *-*HEATHER Barriga RECORDS*-* MD Luis Fernando [address] [address] (Wo rk) 01/21/2022 Office Visit Gastroenterology Juanis Levi 6650 [place] [phone] Luis Fernando Miles MD 516 [facility] 2A [place], [place] [address] documented as of this encounter Visit Diagnoses Diagnosis Opiate dependence (H) - Primary Opioid type dependence, unspecified documented in this encounter Care Teams Mine Engineer Relationship Specialty Start Date End Date Edgar Alfredo MD PCP - General Family Practice 04/13/12 08/11/14 [address] [place] [place] [address] documented as of this encounter
--- OUTSIDE RECORDS SUMMARY | 2021-12-13 12:46 | XMS_ITS | Encounter Summary ---
:1980 Author Organization [place] Address [facility]0 [facility]. [address] Care Team Providers Name Role Phone None, Bfp Primary Care Provider Unavailable Reason for Visit Reason Onset Date Comments RECHECK PAP date Erroneous encounter-disregard 03/30/2012 Encounter Details Date Type Department Care Team Description 03/30/2012 Office Visit [facility] Edgar Alfredo ERRONEOUS Clinic Ashly Gauthier MD ENCOUNTER--DISREGARD 606 24[facility] [address] [place] [address] (Primary Dx) [address] [place] [phone] Social History Tobacco Use Types Packs/Day Years Used Date Smoking Tobacco: Every Day Cigarettes 0.5 10 Smokeless Tobacco: Never Alcohol Use Standard Drinks/Week Comments No 0 (1 standard drink = 0.6 oz pure alcoho l) Sex Assigned at Date Recorded Female 01/14/2020 10:57 AM RETAIL EVENT 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 Please disregard. [place] EVENT ASSISTANT documented in this encounter Plan of Treatment Upcoming Encounters Date Type Specialty Care Team Description 12/20/2021 Office Visit Wound Care Luis Camara, [place] 909 [place] [address] (Wo rk) 01/21/2022 PRE VISIT Gastroenterology Landon Warren, *-*WANDAIN G RECORDS*-* MD Luis Fernando [address] [address] (Wo rk) 01/21/2022 Office Visit Gastroenterology Juanis Levi 2450 [place] [phone] Luis Fernando Miles MD [address] [address] documented as of this encounter Visit Diagnoses Diagnosis ERRONEOUS ENCOUNTER--DISREGARD - Primary documented in this encounter Care Teams Catalogue Clerk Relationship Specialty Start Date End Date None, Bfp PCP - General 03/02/99 04/12/12 documented as of this encounter
--- OUTSIDE RECORDS SUMMARY | 2021-12-13 12:46 | XMS_ITS | Encounter Summary ---
:1980 Author Organization [place] Address 2450 [facility] [place] [address] Care Team Providers Name Role Phone Edgar Alfredo MD Primary Care Provider Reason for Visit Reason Onset Date Comments Refill Request 11/30/2012 Encounter Details Date Type Department Care Team Description 11/30/2012 Refill [facility] Nithya Alfredo MD Refill Request [place] 606 24TH [facility] [address] [place] [address] Suite [facility] [address] [place] [phone] Social History Tobacco Use Types Packs/Day Years Used Date Smoking Tobacco: Every Day Cigarettes 0.1 10 Smokeless Tobacco: Never Comments: 5 cigarettes a day Alcohol Use Standard Drinks/Week Comments No 0 (1 standard drink = 0.6 oz pure alcoho l) Sex Assigned at Date Recorded Female 01/14/2020 10:57 AM 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 Camacho on [place]: [phone] documented in this encounter Plan of Treatment Upcoming Encounters Date Type Specialty Care Team Description 12/20/2021 Office Visit Wound Care Luis Camara DPM 909 [place] [address] (Wo rk) 01/21/2022 PRE VISIT Gastroenterology Landon Warren, *-*HEATHER Barriga RECORDS*-* MD Luis Fernando 516 [facility] 2A [place], [place] [address] (Wo rk) 01/21/2022 Office Visit Gastroenterology Juanis Levi 2450 [place] [address] Luis Fernando Miles MD 516 [facility] [place], [place] [address] documented as of this encounter Visit Diagnoses Not on filedocumented in this encounter Care Teams Front Desk Worker Relationship Specialty Start Date End Date Edgar Alfredo MD PCP - General Family Practice 04/13/12 08/11/[address] [facility] 700 [place] [address] documented as of this encounter
--- OUTSIDE RECORDS SUMMARY | 2021-12-13 12:46 | XMS_ITS | Encounter Summary ---
:1980 Author Organization [place] Address [facility] [place] [address] Care Team Providers Name Role Phone Edgar Alfredo MD Primary Care Provider Reason for Visit Reason Onset Date Comments Refill Request 09/15/2012 Bupropion Hcl ER (SR ) 150 mg Encounter Details Date Type Department Care Team Description 09/15/2012 Refill [facility] Edgar Alfredo, Ref ill Request Clinic Ashly VÁSQUEZ (Bupropion Hcl ER (SR) [address] [facility] [address] [place] 150 mg) [facility] 813 700 [place] [phone] (Wo rk) Social History Tobacco Use Types Packs/Day Years Used Date Smoking Tobacco: Every Day Cigarettes 0.5 10 Smokeless Tobacco: Never Alcohol Use Standard Drinks/Week Comments No 0 (1 standard drink = 0.6 oz pure alcoho l) Sex Assigned at Date Recorded Female 01/14/2020 10:57 AM CLAIM ADMINISTRATOR documented as of this encounter Miscellaneous Notes Telephone Encounter - Marycarmen Spence - 09/16/2012 3:25 PM CDT This refill has been forwarded to the provider please see 09/15/2012 encounter. Marycarmen Spence RN Telephone Encounter - Nini Zheng RPH - 09/16/2012 3:15 PM CDT Will forward to . PHQ-9 is greater than 5. Nini Zheng, PharmD [facility] [phone] Telephone Encounter - Juanis Machuca - 09/15/2012 12:38 PM CDT Patient leaving [facility] 09/18/12. Requesting to get refill before she leaves. Last Fill Date: 06/09/2012 Last Fill Quantity: 60 Last Office Visit: 09/15/2012 Date of Last PHQ-9 score: 09/15/2012 Last PHQ-9 score on record= 6 AST 31 04/10/2010 ALT 41 04/10/2010 Thanks, Juanis Machuca, [facility] [address] [place] [address] 201 [place] [address] documented in this encounter Plan of Treatment Upcoming Encounters Date Type Specialty Care Team Description 12/20/2021 Office Visit Wound Care Luis Camara, [place] 909 [place] [address] (Wo rk) 01/21/2022 PRE VISIT Gastroenterology Landon Warren, *-*INCOMIN G RECORDS*-* MD Luis Fernando [address] [place] [address] (Wo rk) 01/21/2022 Office Visit Gastroenterology Juanis Levi 2450 [place] [phone] Luis Fernando Miles MD [address] [place] [address] documented as of this encounter Visit Diagnoses Diagnosis Moderate major depression (H) - Primary Major depressive disorder, single episod e, moderate documented in this encounter Care Teams Second Baker Relationship Specialty Start Date End Date Edgar Alfredo MD PCP - General Family Practice 04/13/12 08/11/[address] [place] [address] [place] [phone] documented as of this encounter
--- OUTSIDE RECORDS SUMMARY | 2021-12-13 12:46 | XMS_ITS | Encounter Summary ---
:1980 Author Organization [place] Address [facility] [place] [address] Care Team Providers Name Role Phone Edgar Alfredo MD Primary Care Provider Reason for Visit Reason Onset Date Comments Refill Request 09/16/2012 bupropion Encounter Details Date Type Department Care Team Description 09/16/2012 Refill [facility] Edgar Alfredo, Ref ill Request Clinic Ashly VÁSQUEZ (bupropion ) [address] On license of [facility] 606 24[address] [facility] [address] [place] [address] (Wo rk) Social History Tobacco Use Types Packs/Day Years Used Date Smoking Tobacco: Every Day Cigarettes 0.5 10 Smokeless Tobacco: Never Alcohol Use Standard Drinks/Week Comments No 0 (1 standard drink = 0.6 oz pure alcoho l) Sex Assigned at Date Recorded Female 01/14/2020 10:57 AM 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 Last OV was on 09/15/2012 -- PHQ9 was a 6, refilled 06/09/2012 #60. Order is cued up for your review, please advise. Sintia Colon, RN documented in this encounter Plan of Treatment Upcoming Encounters Date Type Specialty Care Team Description 12/20/2021 Office Visit Wound Care [place] Luis Lex, DPM 909 [place] [address] (Wo rk) 01/21/2022 PRE VISIT Gastroenterology Landon Warren, *-*WANDAIN G RECORDS*-* MD Luis Fernando 516 [facility] 2A [place], [place] [address] (Wo rk) 01/21/2022 Office Visit Gastroenterology Juanis Levi 2450 [place] [phone] Luis Fernando Miles MD 6 [facility] 2A [place] [address] documented as of this encounter Visit Diagnoses Diagnosis Moderate major depression (H) - Primary Major depressive disorder, single episod e, moderate documented in this encounter Care Teams Agricultural Engineering Technicians Relationship Specialty Start Date End Date Edgar Alfredo MD PCP - General Family Practice 04/13/12 08/11/14 606 24TH [facility] 700 [place] [phone] documented as of this encounter
--- OUTSIDE RECORDS SUMMARY | 2021-12-13 12:46 | XMS_ITS | Encounter Summary ---
:1980 Author Organization [place] Address [facility]0 [facility]. [address] Care Team Providers Name Role Phone Edgar Alfredo MD Primary Care Provider Reason for Visit Reason Onset Date Comments Erroneous encounter-disregard 09/22/2012 Encounter Details Date Type Department Care Team Description 09/22/2012 [facility] Edgar Alfredo, Err oneous Clinic Ashly VÁSQUEZ encounter-disregard [address] [place] [address] [place] [address] [address] 700 [place] [phone] (Wo rk) Social History Tobacco Use Types Packs/Day Years Used Date Smoking Tobacco: Every Day Cigarettes 0.5 10 Smokeless Tobacco: Never Alcohol Use Standard Drinks/Week Comments No 0 (1 standard drink = 0.6 oz pure alcoho l) Sex Assigned at Date Recorded Female 01/14/2020 10:57 AM SUBSTANCE ABUSE CLINICIAN documented as of this encounter Plan of Treatment Upcoming Encounters Date Type Specialty Care Team Description 12/20/2021 Office Visit Wound Care Luis Camara, [place] 909 [place], [place] [address] (Wo rk) 01/21/2022 PRE VISIT Gastroenterology Landon Warren, *-*HEATHER Barriga RECORDS*-* MD Luis Fernando 516 [facility] 2A [place], [place] [address] (Wo rk) 01/21/2022 Office Visit Gastroenterology Juanis Levi 2450 [place] [phone] Luis Fernando Miles MD 516 [facility] 2A [place], [place] [address] documented as of this encounter Visit Diagnoses Diagnosis Moderate major depression (H) - Primary Major depressive disorder, single episod e, moderate documented in this encounter Care Teams Keyboard Operator Relationship Specialty Start Date End Date Edgar Alfredo MD PCP - General Family Practice 04/13/12 08/11/14 606 24TH [facility] 700 [place] [phone] documented as of this encounter
--- OUTSIDE RECORDS SUMMARY | 2021-12-13 12:46 | XMS_ITS | Encounter Summary ---
:1980 Author Organization [place] Address [address] [facility] [place] [address] Care Team Providers Name Role Phone None, Bfp Primary Care Provider Unavailable Reason for Visit Reason Onset Date Comments Refill Request 03/31/2012 Encounter Details Date Type Department Care Team Description 03/31/2012 Refill [facility] Nithya Alfredo MD Refill Request [place] [address] [place] [address] [address] [place] [address] [address] [phone] [place] [address]55 [phone] Social History Tobacco Use Types Packs/Day Years Used Date Smoking Tobacco: Every Day Cigarettes 0.5 10 Smokeless Tobacco: Never Alcohol Use Standard Drinks/Week Comments No 0 (1 standard drink = 0.6 oz pure alcoho l) Sex Assigned at Date Recorded Female 01/14/2020 10:57 AM AUTO TRANSMISSION SPECIALIST documented as of this encounter Miscellaneous Notes Telephone Encounter - Madonna Cody - 03/31/2012 1:12 PM CST Script for subutex was faxed to the [facility] in [place]. TRANSMISSION SPECIALIST Telephone Encounter - Edgar Alfredo MD - 03/31/2012 12:25 PM CST advised appointment in 1 week Will reduce Subutex to 6 mg TRANSMISSION SPECIALIST Telephone Encounter - Abel Sal - 03/31/2012 12:20 PM CST Pt missed appt this am. Couldn't get a ride. Asked Dr. Alfredo about situation.Pt was informed that could still see her for her Subutex refill if she can get here w/i the hour. She said it would take over 1-1/2 hours to get here from [place]. Pt was informed the best that can be done is to get a note to Dr. Alfredo and he can call you. Pt's cell#:[phone] TRANSMISSION SPECIALIST documented in this encounter Plan of Treatment Upcoming Encounters Date Type Specialty Care Team Description 12/20/2021 Office Visit Wound Care Luis Camara, [place] [address] [place] [address] (Wo rk) 01/21/2022 PRE VISIT Gastroenterology Landon Warren, *-*WANDAIN G RECORDS*-* MD Luis Fernando [address] [place] [address] (Wo rk) 01/21/2022 Office Visit Gastroenterology Juanis Levi [address]50 [place] [phone] Luis Fernando Miles MD [address] [place] [phone] documented as of this encounter Visit Diagnoses Diagnosis complicated by chemical depend ency, antepartum - Primary Drug dependence, antepartum documented in this encounter Care Teams Broadcast Field Supervisor Relationship Specialty Start Date End Date None, Bfp PCP - General 03/02/99 04/12/12 documented as of this encounter
--- OUTSIDE RECORDS SUMMARY | 2021-12-13 12:46 | XMS_ITS | Encounter Summary ---
:1980 Author Organization [place] Address [facility] [place] [address] Care Team Providers Name Role Phone None, Bfp Primary Care Provider Unavailable Reason for Visit Reason Onset Date Comments RECHECK please ask about rec ent PAP date Erroneous encounter-disregard 02/27/2012 Encounter Details Date Type Department Care Team Description 02/27/2012 Office Visit [facility] Edgar Alfredo ERRONEOUS Clinic Ashly Gauthier MD ENCOUNTER--DISREGARD [address] [facility] [address] [facility] (Primary Dx) [address] [place] [address] Social History Tobacco Use Types Packs/Day Years Used Date Smoking Tobacco: Every Day Cigarettes 0.5 10 Smokeless Tobacco: Never Alcohol Use Standard Drinks/Week Comments No 0 (1 standard drink = 0.6 oz pure alcoho l) Sex Assigned at Date Recorded Female 01/14/2020 10:57 AM EXPERIENTIAL THERAPIST documented as of this encounter Progress Notes Edgar Alfredo MD - 02/27/2012 5:34 PM CST This encounter was opened in error. Please disregard. This encounter was opened in error. Please disregard. RIENTIAL THERAPIST documented in this encounter Plan of Treatment Upcoming Encounters Date Type Specialty Care Team Description 12/20/2021 Office Visit Wound Care Luis Camara, [place] [address] [place] [address] (Wo rk) 01/21/2022 PRE VISIT Gastroenterology Landon Warren, *-*WANDAIN G RECORDS*-* MD Luis Fernando [address] [place] [address] (Wo rk) 01/21/2022 Office Visit Gastroenterology Juanis Levi [address] [place] [address] Luis Fernando Miles MD [address] [place] [phone] documented as of this encounter Visit Diagnoses Diagnosis ERRONEOUS ENCOUNTER--DISREGARD - Primary documented in this encounter Care Teams Home Supervisor Relationship Specialty Start Date End Date None, Bfp PCP - General 03/02/99 04/12/12 documented as of this encounter
--- OUTSIDE RECORDS SUMMARY | 2021-12-13 12:46 | XMS_ITS | Encounter Summary ---
:1980 Author Organization [place] Address [address] [facility] [place] [address] Care Team Providers Name Role Phone Edgar Alfredo MD Primary Care Provider Encounter Details Date Type Department Care Team Description 05/18/2012 External Order [facility] Edgar Alfredo, Results Clinic Ashly VÁSQUEZ [address] [place] [address] [place] [address] [address] [place] [phone] (Reinaldo rk) Social History Tobacco Use Types Packs/Day Years Used Date Smoking Tobacco: Every Day Cigarettes 0.5 10 Smokeless Tobacco: Never Alcohol Use Standard Drinks/Week Comments No 0 (1 standard drink = 0.6 oz pure alcoho l) Sex Assigned at Date Recorded Female 01/14/2020 10:57 AM SUBSURFACE AUGMENTEE OPERATOR documented as of this encounter Plan of Treatment Upcoming Encounters Date Type Specialty Care Team Description 12/20/2021 Office Visit Wound Care Luis Camara, [place] [address] [place], [place] [phone] (Wo rk) 01/21/2022 PRE VISIT Gastroenterology Landon Warren, *-*WANDAIN G RECORDS*-* MD Luis Fernando [address] [facility] [address] [place] [address] (Wo rk) 01/21/2022 Office Visit Gastroenterology Juanis Levi [address] [place] [address] Luis Fernando Miles MD [address] [facility] [address] [place] [address] documented as of this encounter Procedures Procedure Name Priority Date/Time Associated Diagnosis Comme nts ABSTRACT PAP (HIM Routine 05/18/2012 Results fo r this EXTERNAL RESULT) procedure a re in the results section . documented in this encounter Results (ABNORMAL) ABSTRACT PAP-NO CHARGE (05/18/2012) Narrative MISYS - 05/18/2012 Pt reports Pap done at [facility] in [place], results abnormal, recheck one year. ??Pt Reported GIOVANNA Letter Sent Patient Reported LAB - HIM EXTERNAL RESULT Performing Organization Address City/State/ZIP Code Phon e Number MISYS documented in this encounter Visit Diagnoses Not on filedocumented in this encounter Care Teams Automated Teller Manager Relationship Specialty Start Date End Date Edgar Alfredo MD PCP - General Family Practice 04/13/12 08/11/14 [address] [facility] 700 [place] [address] documented as of this encounter
--- OUTSIDE RECORDS SUMMARY | 2021-12-13 12:46 | XMS_ITS | Encounter Summary ---
:1980 Author Organization [place] Address [facility] hospital0 [facility] [place] [address] Care Team Providers Name Role Phone None, Bfp Primary Care Provider Unavailable Reason for Visit Reason Onset Date Comments RECHECK please ask about rec ent PAP date Erroneous encounter-disregard 02/07/2012 Encounter Details Date Type Department Care Team Description 02/06/2012 Office Visit [facility] Edgar Alfredo ERRONEOUS Clinic Ashly Gauthier MD ENCOUNTER--DISREGARD [address] [facility] [address] [facility] (Primary Dx) [address] [place] [phone] Social History Tobacco Use Types Packs/Day Years Used Date Smoking Tobacco: Every Day Cigarettes 0.5 10 Smokeless Tobacco: Never Alcohol Use Standard Drinks/Week Comments No 0 (1 standard drink = 0.6 oz pure alcoho l) Sex Assigned at Date Recorded Female 01/14/2020 10:57 AM BUTTON CUTTER documented as of this encounter Progress Notes Edgar Alfredo MD - 02/07/2012 9:51 PM CST This encounter was opened in error. Please disregard. ON CUTTER documented in this encounter Plan of Treatment Upcoming Encounters Date Type Specialty Care Team Description 12/20/2021 Office Visit Wound Care Luis Camara DPM 9[address] [place], [place] [address] (Wo rk) 01/21/2022 PRE VISIT Gastroenterology Landon Warren, *-*WANDAIN G RECORDS*-* MD Luis Fernando [address] [phone] (Wo rk) 01/21/2022 Office Visit Gastroenterology Juanis Levi 2450 [place] [phone] Luis Fernando Miles MD [address] [phone] documented as of this encounter Visit Diagnoses Diagnosis ERRONEOUS ENCOUNTER--DISREGARD - Primary documented in this encounter Care Teams Diesel Power Mechanic Relationship Specialty Start Date End Date None, Bfp PCP - General 03/02/99 04/12/12 documented as of this encounter
--- OUTSIDE RECORDS SUMMARY | 2021-12-13 12:46 | XMS_ITS | Encounter Summary ---
:1980 Author Organization [place] Address 2450 [facility] [place] [address] Care Team Providers Name Role Phone Edgar Alfredo MD Primary Care Provider Encounter Details Date Type Department Care Team Description 11/28/[address] [facility] Rubi Larsen [place] MD [address] [place] [address] [place] [address] 700 [address] [place], [place] [address] [place] [address] [phone] Social History Tobacco Use Types Packs/Day Years Used Date Smoking Tobacco: Every Day Cigarettes 0.1 10 Smokeless Tobacco: Never Comments: 5 cigarettes a day Alcohol Use Standard Drinks/Week Comments No 0 (1 standard drink = 0.6 oz pure alcoho l) Sex Assigned at Date Recorded Female 01/14/2020 10:57 AM TINSEL MACHINE OPERATOR documented as of this encounter [...] Visit Wound Care Luis Camara, [place] [address] [place], [place] [address] (Wo rk) 01/21/2022 PRE VISIT Gastroenterology Landon Warren, *-*INCOMIN G RECORDS*-* MD Luis Fernando 516 [facility] 2[address] [place], [place] [phone] (Wo rk) 01/21/2022 Office Visit Gastroenterology Juanis Levi 2450 [place] [phone] Luis Fernando Miles MD 6 [facility] [address] [place], [place] [address] documented as of this encounter Visit Diagnoses Not on filedocumented in this encounter Care Teams Web Site Project Manager Relationship Specialty Start Date End Date Edgar Alfredo MD PCP - General Family Practice 04/13/12 08/11/14 [address] [facility] 700 [place] [phone] documented as of this encounter
--- OUTSIDE RECORDS SUMMARY | 2021-12-13 12:46 | XMS_ITS | Encounter Summary ---
:1980 Author Organization [place] Address 2450 [facility] [place] [address] Care Team Providers Name Role Phone Edgar Alfredo MD Primary Care Provider Reason for Visit Reason Onset Date Comments Refill Request 05/19/2012 Encounter Details Date Type Department Care Team Description 05/19/2012 Refill [facility] Nithya Alfredo MD Refill Request [place] [address] [facility] [address] [place] [address] [address] [facility] [address] [place] [address] 4-[address]55 [phone] Social History Tobacco Use Types Packs/Day Years Used Date Smoking Tobacco: Every Day Cigarettes 0.5 10 Smokeless Tobacco: Never Alcohol Use Standard Drinks/Week Comments No 0 (1 standard drink = 0.6 oz pure alcoho l) Sex Assigned at Date Recorded Female 01/14/2020 10:57 AM LINTING MACHINE OPERATOR documented as of this encounter [...] FlakitoTigist - 05/19/2012 2:05 PM CDT Pt ([phone]) calling, scheduled appt for med check for 06-09-12, states she has enough subutex until May 26 or , would like a rx for 05-26-12 that would cover until appt 06-09. Laineyeens [place] as listed in Epic. documented in this encounter Plan of Treatment Upcoming Encounters Date Type Specialty Care Team Description 12/20/2021 Office Visit Wound Care Luis Camara, DPM 909 [place] [address] (Wo rk) 01/21/2022 PRE VISIT Gastroenterology Landon Warren, *-*INCOMIN G RECORDS*-* MD Luis Fernando [address] [place] [address] (Wo rk) 01/21/2022 Office Visit Gastroenterology Juanis Levi [address] [place] [address] Luis Fernando Miles MD [address] [place] [phone] documented as of this encounter Visit Diagnoses Diagnosis Opiate dependence (H) - Primary Opioid type dependence, unspecified documented in this encounter Care Teams Ion Exchange Operator Relationship Specialty Start Date End Date Edgar Alfredo MD PCP - General Family Practice 04/13/12 08/11/14 [address] [facility] 700 [place] [phone] documented as of this encounter
--- OUTSIDE RECORDS SUMMARY | 2021-12-13 12:46 | XMS_ITS | Encounter Summary ---
:1980 Author Organization [place] Address [facility] [place] [address] Care Team Providers Name Role Phone Edgar Alfredo MD Primary Care Provider Reason for Visit Reason Onset Date Comments Symptoms 07/22/2012 withdrawal from subo xone Encounter Details Date Type Department Care Team Description 07/22/2012 Telephone [facility] Edgar Alfredo, Sym ptoms (withdrawal Clinic Ashly VÁSQUEZ from suboxone ) [address] Counts include 234 beds at the [facility] [address] [facility] [address] [place] [phone] (Wo rk) Social History Tobacco Use Types Packs/Day Years Used Date Smoking Tobacco: Every Day Cigarettes 0.5 10 Smokeless Tobacco: Never Alcohol Use Standard Drinks/Week Comments No 0 (1 standard drink = 0.6 oz pure alcoho l) Sex Assigned at Date Recorded Female 01/14/2020 10:57 AM GAMEWELL OPERATOR documented as of this encounter Miscellaneous [...] to talk to Dr. Alfredo (pager # [phone]).I did tell patient this plan, who then [...] Team Description 12/20/2021 Office Visit Wound Care uLis Camara DPM 909 [place], [place] [phone] (Wo rk) 01/21/2022 PRE VISIT Gastroenterology Landon Warren, *-*WANDAIN G RECORDS*-* MD Luis Fernando [address] [place] [phone] (Wo rk) 01/21/2022 Office Visit Gastroenterology Juanis Levi [address] [place] [phone] Luis Fernando Miles MD [address] [place] [phone] documented as of this encounter Visit Diagnoses Not on filedocumented in this encounter Care Teams Gluing Machine Feeder Relationship Specialty Start Date End Date Edgar Alfredo MD PCP - General Family Practice 04/13/12 08/11/[address] [place] 700 [place] [phone] documented as of this encounter
--- OUTSIDE RECORDS SUMMARY | 2021-12-13 12:46 | XMS_ITS | Encounter Summary ---
:1980 Author Organization [place] Address 2450 [facility] [place] [address] Care Team Providers Name Role Phone None, Bfp Primary Care Provider Unavailable Edgar Alfredo MD Primary Care Provider Reason for Visit Reason Comments Recheck Medication u/a Encounter Details Date Type Department Care Team Description 04/10/2012 Office Visit [facility] Edgar Alfredo Anxiety ( Primary Dx); Clinic Ashly Gauthier MD complicated by chemical depend ency, antepartum (H); [address] [facility] [address] [facility] Vitamin B12 deficiency (non anaemic); [address] 700 Opiate dependence (H) [place] [phone] Social History Tobacco Use Types Packs/Day Years Used Date Smoking Tobacco: Every Day Cigarettes 0.5 10 Smokeless Tobacco: Never Alcohol Use Standard Drinks/Week Comments No 0 (1 standard drink = 0.6 oz pure alcoho l) Sex Assigned at Date Recorded Female 01/14/2020 10:57 AM INTENSIVE CARE AMBULANCE PARAMEDIC documented as of this encounter Last Filed Vital Signs Vital Sign Reading Time Taken Comments Blood Pressure 118/57 04/10/2012 4:20 PM INTENSIVE CARE AMBULANCE PARAMEDIC Pulse 88 04/10/2012 4:20 PM INTENSIVE CARE AMBULANCE PARAMEDIC Temperature 37.1 ??C (98.7 ??F) 04/10/2012 4:20 PM INTENSIVE CARE AMBULANCE PARAMEDIC Respiratory Rate - - Oxygen Saturation 98% 04/10/2012 4:20 PM INTENSIVE CARE AMBULANCE PARAMEDIC Inhaled Oxygen Concentration - - Weight 73 kg (161 lb) 04/10/2012 4:20 PM INTENSIVE CARE AMBULANCE PARAMEDIC Height 166.4 cm (5' 5.5) 04/10/2012 4:20 PM INTENSIVE CARE AMBULANCE PARAMEDIC Body Mass Index 26.38 04/10/2012 4:20 PM INTENSIVE CARE AMBULANCE PARAMEDIC documented in this encounter Progress Notes Edgar [...] coordination of care; discussed tapering before delivery NSIVE CARE AMBULANCE PARAMEDIC documented in this encounter Nursing Notes 04/10/2012 4:30 PM CST >> FERN MARINELLI FriApr 10, 2012 5:01 PM Script for subutex was faxed to the [facility]. >> BRYNN PORTER FriApr 10, 2012 4:23 PM Patient presents [...] completed using cuff size: regular Brynn Manish CIVIL SERVICE CLERK documented in this encounter Plan of Treatment Upcoming Encounters Date Type Specialty Care Team Description 12/20/2021 Office Visit Wound Care Luis Camara, [place] [address] [place] [address] (Wo rk) 01/21/2022 PRE VISIT Gastroenterology Landon Warren, *-*WANDAIN G RECORDS*-* MD Luis Fernando 516 [facility] 2A [place], [place] [phone] (Wo rk) 01/21/2022 Office Visit Gastroenterology Juanis Levi [address] [place] [address] Luis Fernando Miles MD [address] [address] documented as of this encounter Procedures Procedure Name Priority Date/Time Associated Diagnosis Comme nts DRUG ABUSE SCREEN 6 Routine 04/10/2012 5:10 PM Re sults for this CHEM DEP URINE INTENSIVE CARE AMBULANCE PARAMEDIC procedure are in ([facility]) the results section. documented in this encounter Results Drug abuse screen 6 urine (chem dep) ([facility]) (04/10/2012 5:10 PM INTENSIVE CARE AMBULANCE PARAMEDIC) Component Value Ref Test Analysis Performed Pathologis t Range Method Time At Signature Amphetamine Qual Negative NEG [facility] Urine Cutoff for a negative amphetamine is 500 ng/mL or less. [facility] Barbiturates Qual Negative NEG [facility] Urine Cutoff for a negative barbiturate is 200 ng/mL or less. [facility] Benzodiazepine Negative NEG [facility] Qual Urine Cutoff for a negative benzodiazepine is 200 ng/mL or less . [facility] Cannabinoids Qual Negative NEG [facility] Urine Cutoff for a negative cannabinoid is 50 ng/mL or less. [facility] Cocaine Qual Negative NEG [facility] Urine Cutoff for a negative cocaine is 300 ng/mL or less. [facility] Ethanol Qual Negative NEG [facility] Urine Cutoff for a negative urine ethanol is 50 mg/dL or less. [facility] Opiates Negative NEG [facility] Qualitative Urine Cutoff for a negative opiate is 300 ng/mL or less. [facility] Specimen Anatomical Collection Method Collection Time Receive d Time (Source) Location / / Volume Laterality 04/10/2012 5:10 PM 3 7:14 INTENSIVE CARE AMBULANCE PARAMEDIC PM INTENSIVE CARE AMBULANCE PARAMEDIC Edgar Alfrdeo MD LAB - URINE ORDERABLES Performing Organization Address City/State/ZIP Code Phon e Number [facility] [address] [place] [address] [facility] documented in this encounter Visit Diagnoses Diagnosis Anxiety - Primary Anxiety state, unspecified complicated by chemical depend ency, antepartum Drug dependence, antepartum Vitamin B12 deficiency (non anaemic) Other B-complex deficiencies Opiate dependence (H) Opioid type dependence, unspecified documented in this encounter Care Teams Broke Beater Machine Operator Relationship Specialty Start Date End Date None, Bfp PCP - General 03/02/99 04/12/12 Edgar Alfredo MD PCP - General Family Practice 04/13/12 08/11/14 [address] [place] [address] [place] [phone] documented as of this encounter
--- OUTSIDE RECORDS SUMMARY | 2021-12-13 12:46 | XMS_ITS | Encounter Summary ---
:1980 Author Organization [place] Address [facility] [place] [address] Care Team Providers Name Role Phone Edgar Alfredo MD Primary Care Provider Reason for Visit Reason Comments RECHECK PHQ9- PCP patient due for DA P/letters Recheck Medication she would like to talk about her antidepressant. Encounter Details Date Type Department Care Team Description 09/15/2012 Office Visit [facility] Edgar Alfredo Moderate major depression (H) (Primary Dx); Clinic Ahsly Gauthier MD Opiate dependence (H); [address] [place] [address] [place] [address] Anxiety [address] [place] [phone] Social History Tobacco Use Types Packs/Day Years Used Date Smoking Tobacco: Every Day Cigarettes 0.5 10 Smokeless Tobacco: Never Alcohol Use Standard Drinks/Week Comments No 0 (1 standard drink = 0.6 oz pure alcoho l) Sex Assigned at Date Recorded Female 01/14/2020 10:57 AM BANDER AND CELLOPHANER MACHINE HELPER documented as of this encounter Last [...] Script for subutex was faxed to the [facility]. >> ADELINE MASSEY FriSep 15, 2012 [...] Care Luis Camara, [place] [address] [place], [place] [address] (Wo rk) 01/21/2022 PRE VISIT Gastroenterology Landon Warren, *-*WANDAIN G RECORDS*-* MD Luis Fernando [address] [place] [address] [address] [place], [place] [phone] (Wo rk) 01/21/2022 Office Visit Gastroenterology Juanis Levi [address] [place] [phone] Luis Fernando Miles MD [address] [place] [address] [address] [place], [place] [phone] documented as of this encounter Visit Diagnoses Diagnosis Moderate major depression (H) - Primary Major depressive disorder, single episod e, moderate Opiate dependence (H) Opioid type dependence, unspecified Anxiety Anxiety state, unspecified documented in this encounter Care Teams Buggy Loader Relationship Specialty Start Date End Date Edgar Alfredo MD PCP - General Family Practice 04/13/12 08/11/14 [address] [facility] 700 [place] [phone] documented as of this encounter
--- OUTSIDE RECORDS SUMMARY | 2021-12-13 12:46 | XMS_ITS | Encounter Summary ---
:1980 Author Organization [place] Address [address] [facility] [place] [address] Care Team Providers Name Role Phone None, Bfp Primary Care Provider Unavailable Reason for Visit Reason Comments RECHECK PAP date Erroneous encounter-disregard Encounter Details Date Type Department Care Team Description 03/31/2012 Office Visit [facility] Edgar Alfredo ERRONEOUS Clinic Ashly Gauthier MD ENCOUNTER--DISREGARD [address] [place] [address] [place] [address] [place] (Primary Dx) [address] [place] [phone] Social History Tobacco Use Types Packs/Day Years Used Date Smoking Tobacco: Every Day Cigarettes 0.5 10 Smokeless Tobacco: Never Alcohol Use Standard Drinks/Week Comments No 0 (1 standard drink = 0.6 oz pure alcoho l) Sex Assigned at Date Recorded Female 01/14/2020 10:57 AM CENTRIFUGAL SPINNER documented as of this encounter Progress Notes Madonna Cody - 04/03/2012 1:26 PM CST Appt cancelled RIFUGAL SPINNER documented in this encounter Plan of Treatment Upcoming Encounters Date Type Specialty Care Team Description 12/20/2021 Office Visit Wound Care Luis Camara, [place] [address] [place], [place] [address] (Wo rk) 01/21/2022 PRE VISIT Gastroenterology Landon Warren, *-*WANDAIN G RECORDS*-* MD Luis Fernando [address] [address] (Wo rk) 01/21/2022 Office Visit Gastroenterology Juanis Levi [address] [place] [address] Luis Fernando Miles MD [address] [place] [address] documented as of this encounter Visit Diagnoses Diagnosis ERRONEOUS ENCOUNTER--DISREGARD - Primary documented in this encounter Care Teams Motor Analyst Relationship Specialty Start Date End Date None, Bfp PCP - General 03/02/99 04/12/12 documented as of this encounter
--- OUTSIDE RECORDS SUMMARY | 2021-12-13 12:46 | XMS_ITS | Encounter Summary ---
:1980 Author Organization [place] Address [facility]0 [facility] [place] [address] Care Team Providers Name Role Phone None, Bfp Primary Care Provider Unavailable Reason for Visit Reason Onset Date Comments Medication Request 02/21/2012 Encounter Details Date Type Department Care Team Description 02/21/2012 Telephone [facility] Edgar Alfredo Ma rk, Medication Request Ashly VÁSQEUZ [address] [place] [address] [place] [address] [address] [place] [phone] (Wo rk) Social History Tobacco Use Types Packs/Day Years Used Date Smoking Tobacco: Every Day Cigarettes 0.5 10 Smokeless Tobacco: Never Alcohol Use Standard Drinks/Week Comments No 0 (1 standard drink = 0.6 oz pure alcoho l) Sex Assigned at Date Recorded Female 01/14/2020 10:57 AM FOOD ASSEMBLER COMMISSARY KITCHEN documented as of this encounter Miscellaneous Notes Telephone Encounter - Madonna Cody - 02/21/2012 3:38 PM CST Script was faxed to the [facility]. ASSEMBLER COMMISSARY KITCHEN Telephone Encounter - Edgar Alfredo MD - 02/21/2012 3:26 PM CST 6 tabs ordered ASSEMBLER COMMISSARY KITCHEN Telephone Encounter - Chapis Diaz - 02/21/2012 2:38 PM CST Not on nursing protocol, unable to fill medication. Please fill if appropriate. Chapis Diaz, RN ASSEMBLER COMMISSARY KITCHEN Telephone Encounter - Madonna Cody - 02/21/2012 2:28 PM CST Stephani only has one subutex left and she made an appointment with you for next and wondering if you could refill her prescription until she comes in. She said that its the Cub that is in her file. If any questions she can be reached at [phone]. ASSEMBLER COMMISSARY KITCHEN documented in this encounter Plan of Treatment Upcoming Encounters Date Type Specialty Care Team Description 12/20/2021 Office Visit Wound Care Luis Camara, [place] [address] [place] [address] (Wo rk) 01/21/2022 PRE VISIT Gastroenterology Landon Warren, *-*INCOMIN G RECORDS*-* MD Luis Fernando [address] [place] [address] (Wo rk) 01/21/2022 Office Visit Gastroenterology Juanis Levi [address] [place] [phone] Luis Fernando Miles MD [address] [place] [phone] documented as of this encounter Visit Diagnoses Diagnosis Opiate dependence (H) - Primary Opioid type dependence, unspecified documented in this encounter Care Teams Labor Service Representative Relationship Specialty Start Date End Date None, Bfp PCP - General 03/02/99 04/12/12 documented as of this encounter
--- OUTSIDE RECORDS SUMMARY | 2021-12-13 12:46 | XMS_ITS | Encounter Summary ---
:1980 Author Organization [place] Address 2450 [facility] [place] [address] Care Team Providers Name Role Phone Edgar Alfredo MD Primary Care Provider Reason for Visit Reason Onset Date Comments Medication Request 06/30/2012 Encounter Details Date Type Department Care Team Description 06/30/2012 Telephone [facility] Edgar Alfredo Ma rk, Medication Request Ashly VÁSQUEZ 606 24[facility] [address] [place] [address] [address] [place] [phone] (Wo rk) Social History Tobacco Use [...] subutex was faxed to the [facility] in [place]. Telephone Encounter - Chapis Diaz - 06/30/2012 [...] filled it already. Please call pt at [phone] documented in this encounter Plan of Treatment Upcoming Encounters Date Type Specialty Care Team Description 12/20/2021 Office Visit Wound Care Luis Camara, [place] [address] [place], [place] [address] (Wo rk) 01/21/2022 PRE VISIT Gastroenterology Landon Warren, *-*WANDAIN G RECORDS*-* MD Luis Fernando [address] [place] [address] (Wo rk) 01/21/2022 Office Visit Gastroenterology Juanis Levi [address] [place] [phone] Luis Fernando Miles MD [address] [place] [address] documented as of this encounter Visit Diagnoses Not on filedocumented in this encounter Care Teams Dental Associate Relationship Specialty Start Date End Date Edgar Alfredo MD PCP - General Family Practice 04/13/12 08/11/14 [address] [place] [address] documented as of this encounter
--- OUTSIDE RECORDS SUMMARY | 2021-12-13 12:46 | XMS_ITS | Encounter Summary ---
:1980 Author Organization [place] Address [facility]0 [facility] [place] [address] Care Team Providers Name Role Phone Edgar Alfredo MD Primary Care Provider Reason for Visit Reason Onset Date Comments RECHECK PAP Date Erroneous encounter-disregard 05/16/2012 Encounter Details Date Type Department Care Team Description 05/15/2012 Office Visit [facility] Edgar Alfredo ERRONEOUS Clinic Ashly Gauthier MD ENCOUNTER--DISREGARD [address] [facility] 606 24[facility] (Primary Dx) [address] [place] [phone] Social History Tobacco Use Types Packs/Day Years Used Date Smoking Tobacco: Every Day Cigarettes 0.5 10 Smokeless Tobacco: Never Alcohol Use Standard Drinks/Week Comments No 0 (1 standard drink = 0.6 oz pure alcoho l) Sex Assigned at Date Recorded Female 01/14/2020 10:57 AM ENDS DOWN CHECKER documented as of this encounter Progress Notes Edgar Alfredo MD - 05/16/2012 8:37 AM CDT This encounter was opened in error. Please disregard. documented in this encounter Plan of Treatment Upcoming Encounters Date Type Specialty Care Team Description 12/20/2021 Office Visit Wound Care Luis Camara, DPM [address] [place] [address] (Wo rk) 01/21/2022 PRE VISIT Gastroenterology Landon Warren, *-*INCOMIN G RECORDS*-* MD Luis Fernando [address] [place] [address] [address] [place] [address] (Wo rk) 01/21/2022 Office Visit Gastroenterology Juanis Levi [address] [place] [address] Luis Fernando Miles MD [address] [phone] documented as of this encounter Visit Diagnoses Diagnosis ERRONEOUS ENCOUNTER--DISREGARD - Primary documented in this encounter Care Teams Garbage Truck Helper Relationship Specialty Start Date End Date Edgar Alfredo MD PCP - General Family Practice 04/13/12 08/11/14 [address] 24[address] [facility] 700 [place] [address] documented as of this encounter
--- OUTSIDE RECORDS SUMMARY | 2021-12-13 12:46 | XMS_ITS | Encounter Summary ---
:1980 Author Organization [place] Address 2450 [place] [address] Care Team Providers Name Role Phone Edgar Alfredo MD Primary Care Provider Reason for Visit Reason Onset Date Comments Refill Request 06/09/2012 Encounter Details Date Type Department Care Team Description 06/09/2012 Refill [facility] Nithya Alfredo MD Refill Request [place] [address] [facility] [address] [place] [address] [phone] [place] [address] [phone] Social History Tobacco Use Types Packs/Day Years Used Date Smoking Tobacco: Every Day Cigarettes 0.5 10 Smokeless Tobacco: Never Alcohol Use Standard Drinks/Week Comments No 0 (1 standard drink = 0.6 oz pure alcoho l) Sex Assigned at Date Recorded Female 01/14/2020 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 Srinath Short Nurse documented in this encounter Plan of Treatment Upcoming Encounters Date Type Specialty Care Team Description 12/20/2021 Office Visit Wound Care Luis Camara, [place] [address] [place], [place] [address] (Wo rk) 01/21/2022 PRE VISIT Gastroenterology Landon Warren, *-*INCOMIN G RECORDS*-* MD Luis Fernando [address] [place] [phone] (Wo rk) 01/21/2022 Office Visit Gastroenterology Juanis Levi 2450 [place] [phone] Luis Fernando Miles MD [address] [place] [phone] documented as of this encounter Visit Diagnoses Diagnosis Moderate major depression (H) - Primary Major depressive disorder, single episod e, moderate documented in this encounter Care Teams Crtts Relationship Specialty Start Date End Date Edgar Alfredo MD PCP - General Family Practice 04/13/12 08/11/14 [address] [facility] S [facility] 700 [place] [phone] documented as of this encounter
--- OUTSIDE RECORDS SUMMARY | 2021-12-13 12:46 | XMS_ITS | Encounter Summary ---
:1980 Author Organization [place] Address 2450 [facility] [place] [address] Care Team Providers Name Role Phone Edgar Workman MD Primary Care Provider Reason for Visit Reason Onset Date Comments Refill Request 06/29/2012 Encounter Details Date Type Department Care Team Description 06/29/2012 Refill [facility] Nithya Workman MD Refill Request [place] [address] 24[address] [facility] [address] [place] [address] Suite [facility] [address] [place] [address] [phone] Social History Tobacco Use Types Packs/Day Years Used Date Smoking Tobacco: Every Day Cigarettes 0.5 10 Smokeless Tobacco: Never Alcohol Use Standard Drinks/Week Comments No 0 (1 standard drink = 0.6 oz pure alcoho l) Sex Assigned at Date Recorded Female 01/14/2020 10:57 AM 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 documented as of this encounter Miscellaneous Notes Addendum Note - Edgar Workman MD - 07/01/2012 11:47 AM CDT Addended by: EDGAR WORKMAN on: 07/01/2012 11:47 AM Modules accepted: Orders Telephone Encounter - Edgar Workman MD - 07/01/2012 11:46 AM CDT Refilled but advised reduce dose to 2 mg daily to reduce risk of withdrawal # 22 ordered Addendum Note - Edgar Workman MD - 07/01/2012 7:33 AM CDT Addended by: EDGAR WORKMAN on: 07/01/2012 07:33 AM Modules accepted: Orders Telephone Encounter - Edgar Workman MD - 07/01/2012 7:32 AM CDT I will take care of this Addendum Note - Myles Llamas MD - 06/30/2012 9:41 PM CDT Addended by: MYLES LLAMAS on: 06/30/2012 09:41 PM Modules accepted: Orders Telephone Encounter - Myles Llamas MD - 06/30/2012 9:40 PM CDT Please find out when Dr Workman's back; I'll refill until then. Myles Llamas MD Addendum Note - Chapis Elizalde - 06/30/2012 2:24 PM CDT Addended by: CHAPIS ELIZALDE on: 06/30/2012 02:24 PM Modules accepted: Orders Telephone Encounter - Chapis Elizalde - 06/30/2012 2:22 PM CDT Medication cued up and rerouted to provider for review. Pt called back i do not see medication approved yesterday she is aware dr workman and hugh out of office as of now, dr workman off tomorrow i will route to both providers for review tomorrow. She would likelinda to call her back at [phone] Chapis Elizalde RN Telephone Encounter - Chapis Elizalde - 06/30/2012 2:20 PM CDT [phone] Telephone Encounter - Marycarmen Spence - 06/30/2012 [...] script could be called in to the [facility] in [place]. Please callher at [phone] when this has been done. Telephone Encounter [...] Visit Wound Care Luis Camara, DPM [address] [place], [place] [phone] (Wo rk) 01/21/2022 PRE VISIT Gastroenterology Landon Warren, *-*WANDAIN G RECORDS*-* MD Luis Fernando [address] [place] [address] [address] [place], [place] [phone] (Wo rk) 01/21/2022 Office Visit Gastroenterology Juanis Levi [address]50 [place] [phone] Luis Fernando Miles MD 6 [facility] [address] [place], [place] [address] documented as of this encounter Visit Diagnoses Diagnosis Opiate dependence (H) - Primary Opioid type dependence, unspecified documented in this encounter Care Teams Biomaterials Engineer Relationship Specialty Start Date End Date Edgar Workman MD PCP - General Family Practice 04/13/12 08/11/14 [address] [facility] 700 [place] [phone] documented as of this encounter
--- OUTSIDE RECORDS SUMMARY | 2021-12-13 12:46 | XMS_ITS | Encounter Summary ---
:1980 Author Organization [place] Address 2450 [facility] [place] [address] Care Team Providers Name Role Phone Edgar Alfredo MD Primary Care Provider Encounter Details Date Type Department Care Team Description 07/20/2012 Telephone [facility] Nithya Alfredo MD [place] [address] [place] [address] [place] [address] [phone] [place] [address] [phone] Social History Tobacco Use Types Packs/Day Years Used Date Smoking Tobacco: Every Day Cigarettes 0.5 10 Smokeless Tobacco: Never Alcohol Use Standard Drinks/Week Comments No 0 (1 standard drink = 0.6 oz pure alcoho l) Sex Assigned at Date Recorded Female 01/14/2020 10:57 AM 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 Alfredo's game plan regarding suboxone. Patient is having now. Call transferred to Dr. Alfredo. Sintia Colon RN documented in this encounter Plan of Treatment Upcoming Encounters Date Type Specialty Care Team Description 12/20/2021 Office Visit Wound Care Luis Camara, [place] [address] [place] [address] (Wo rk) 01/21/2022 PRE VISIT Gastroenterology Landon Warren, *-*WANDAIN G RECORDS*-* MD Luis Fernando [address] [facility] 2[address] [place] [address] (Wo rk) 01/21/2022 Office Visit Gastroenterology Juanis Levi 2450 [place] [address] Luis Fernando Miles MD 6 [facility] 2A [place], [place] [address] documented as of this encounter Visit Diagnoses Not on filedocumented in this encounter Care Teams Production Supply Equipment Tender Relationship Specialty Start Date End Date Edgar Alfredo MD PCP - General Family Practice 04/13/12 08/11/14 606 24[address] [facility] S [facility] 700 [place] [address] documented as of this encounter
--- OUTSIDE RECORDS SUMMARY | 2021-12-13 12:46 | XMS_ITS | Encounter Summary ---
:1980 Author Organization [place] Address [facility] [place] [address] Care Team Providers Name Role Phone Edgar Alfredo MD Primary Care Provider Reason for Visit Reason Comments RECHECK PHQ9 Recheck Medication No concerns Encounter Details Date Type Department Care Team Description 10/08/2012 Office Visit [facility] Edgar Alfredo Moderate major depression (H) (Primary Dx); Clinic Ashly Gauthier MD Opiate dependence (H) [address] [facility] [address] 24[address] [facility] [address] [place] [phone] Social History Tobacco Use Types Packs/Day Years Used Date Smoking Tobacco: Every Day Cigarettes 0.1 10 Smokeless Tobacco: Never Comments: 5 cigarettes a day Alcohol Use Standard Drinks/Week Comments No 0 (1 standard drink = 0.6 oz pure alcoho l) Sex Assigned at Date Recorded Female 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/2020 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 documented as of this encounter Last [...] 1:15 PM CDT >> ANN MARIE JOHNSON [facility] Oct 08, 2012 2:00 PM Suboxone RX was faxed to [facility] Ann Marie Johnson [facility] >> SHANI LIND [facility] Oct 08, 2012 1:40 PM Patient [...] Wound Care [place] Luislaurel Burnett, [place] [address] [place] [address] (Wo rk) 01/21/2022 PRE VISIT Gastroenterology Landon Warren, *-*WANDAIN G RECORDS*-* MD Luis Fernando [address] [place] [address] (Wo rk) 01/21/2022 Office Visit Gastroenterology Jaunis Levi [address]50 [place] [phone] Luis Fernando Miles MD [address] [place] [phone] documented as of this encounter Procedures Procedure Name Priority Date/Time Associated Diagnosis Comme nts DRUG ABUSE SCREEN 6 Routine 10/08/2012 2:34 PM Opiate dependen ce Results for this CHEM DEP URINE CDT (H) procedure are in ([facility]) the results section. documented in this encounter Results (ABNORMAL) Drug abuse screen 6 urine (chem dep) ([facility]) (10/08/2012 2:34 PM CDT) Component Value Ref Test Analysis Performed Pathologis t Range Method Time At Signature Amphetamine Qual Positive NEG [facility] Urine Cutoff for a positive amphetamine is greater th an 500 ng/mL. This is an [facility] unconfirmed screening result to be used for medical purpose s only. (A) LAB Barbiturates Qual Negative NEG [facility] Urine Cutoff for a negative barbiturate is 200 ng/mL or less. [facility] Benzodiazepine Negative NEG [facility] Qual Urine Cutoff for a negative benzodiazepine is 200 ng/mL or less . [facility] Cannabinoids Qual Negative NEG [facility] Urine Cutoff for a negative cannabinoid is 50 ng/mL or less. [facility] Cocaine Qual Negative NEG [facility] Urine Cutoff for a negative cocaine is 300 ng/mL or less. [facility] Ethanol Qual Negative NEG [facility] Urine Cutoff for a negative urine ethanol is 50 mg/dL or less. [facility] Opiates Negative NEG [facility] Qualitative Urine Cutoff for a negative opiate is 300 ng/mL or less. [facility] Specimen Anatomical Collection Method Collection Time Receive d Time (Source) Location / / Volume Laterality Urine specimen 10/08/2012 2:34 PM 013 2:35 (specimen) CDT PM CDT Edgar Alfredo MD LAB - URINE ORDERABLES Performing Organization Address City/State/ZIP Code Phon e Number [facility] [address] [place] [address] [facility] documented in this encounter Visit Diagnoses Diagnosis Moderate major depression (H) - Primary Major depressive disorder, single episod e, moderate Opiate dependence (H) Opioid type dependence, unspecified documented in this encounter Care Teams Health And Safety Technician Relationship Specialty Start Date End Date Edgar Alfredo MD PCP - General Family Practice 04/13/12 08/11/14 [address] [facility] [address] [place] [phone] documented as of this encounter
--- OUTSIDE RECORDS SUMMARY | 2021-12-13 12:46 | XMS_ITS | Encounter Summary ---
:1980 Author Organization [place] Address [address]50 [facility] [address] Care Team Providers Name Role Phone Edgar Alfredo MD Primary Care Provider Reason for Visit Reason Comments Recheck Medication Encounter Details Date Type Department Care Team Description 07/23/2012 Office Visit [facility] Edgar Alfredo Opiate de pendence (H) Clinic Ashly Gauthier MD (Primary Dx) [address] [facility] [address] 24[address] [facility] [address] [place] [phone] Social History Tobacco Use Types Packs/Day Years Used Date Smoking Tobacco: Every Day Cigarettes 0.5 10 Smokeless Tobacco: Never Alcohol Use Standard Drinks/Week Comments No 0 (1 standard drink = 0.6 oz pure alcoho l) Sex Assigned at Date Recorded Female 01/14/2020 10:57 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 >> BRYNN HAMMOND FriJul 23, 2012 [...] completed using cuff size: regular Brynn Manish PUBLIC INFORMATION RELATIONS MANAGER documented in this encounter Miscellaneous Notes Addendum Note - Brynn Hammond - 08/11/2012 4:52 PM CDT Addended by: BRYNN HAMMOND on: 08/11/2012 04:52 PM Modules accepted: SmartSet documented in this encounter Plan of Treatment Upcoming Encounters Date Type Specialty Care Team Description 12/20/2021 Office Visit Wound Care Luis Camara, [place] [address] [place] [address] (Wo rk) 01/21/2022 PRE VISIT Gastroenterology Landon Warren, *-*WANDAIN G RECORDS*-* MD Luis Fernando [address] [place] [phone] (Wo rk) 01/21/2022 Office Visit Gastroenterology Juanis Levi [address] [place] [phone] Luis Fernando Miles MD [address] [place] [phone] documented as of this encounter Visit Diagnoses Diagnosis Opiate dependence (H) - Primary Opioid type dependence, unspecified documented in this encounter Care Teams Ext Js Developer Relationship Specialty Start Date End Date Edgar Alfredo MD PCP - General Family Practice 04/13/12 08/11/14 [address] [facility] 700 [place] [phone] documented as of this encounter
--- OUTSIDE RECORDS SUMMARY | 2021-12-13 12:46 | XMS_ITS | Encounter Summary ---
:1980 Author Organization [place] Address 2450 [facility] [place] [address] Care Team Providers Name Role Phone Edgar Alfredo MD Primary Care Provider Reason for Visit Reason Onset Date Comments Refill Request 11/16/2012 Encounter Details Date Type Department Care Team Description 11/16/2012 Refill [facility] Nithya Alfredo MD Refill Request [place] 606 24[facility] [address] [place] [address] Suite 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 Telephone Encounter - Marycarmen Spence - [...] Wound Care Luis Camara, [place] [address] [place], [place] [phone] (Wo rk) 01/21/2022 PRE VISIT Gastroenterology Landon Warren, *-*INCOMIN G RECORDS*-* MD Luis Fernando [address] [place] [address] (Wo rk) 01/21/2022 Office Visit Gastroenterology Juanis Levi [address] [place] [phone] Luis Fernando Miles MD [address] [place] [address] documented as of this encounter Visit Diagnoses Diagnosis Opiate dependence (H) - Primary Opioid type dependence, unspecified documented in this encounter Care Teams Fitter Machinist Relationship Specialty Start Date End Date Edgar Alfredo MD PCP - General Family Practice 04/13/12 08/11/[address] [place] [phone] documented as of this encounter
--- OUTSIDE RECORDS SUMMARY | 2021-12-13 12:47 | XMS_ITS | Encounter Summary ---
:1980 Author Organization [place] Address [address] [facility] [place] [address] Care Team Providers Name Role Phone None, Bfp Primary Care Provider Unavailable Reason for Visit Reason Onset Date Comments Refill Request 02/04/2012 Encounter Details Date Type Department Care Team Description 02/04/2012 Refill [facility] Nithya Carbone MD Refill Request [place] [address] [place] [address] [address] [place] [address] [address] [phone] [place] [phone] Social History Tobacco Use Types Packs/Day Years Used Date Smoking Tobacco: Every Day Cigarettes 0.5 10 Smokeless Tobacco: Never Alcohol Use Standard Drinks/Week Comments No 0 (1 standard drink = 0.6 oz pure alcoho l) Sex Assigned at Date Recorded Female 01/14/2020 10:57 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 Tried to call the number listed below, mailbox full. Sintia Colon RN STEREO INSTALLER Telephone Encounter - Tigist Fraga - 02/05/2012 12:41 PM CST Pt calling re rx, informed pt of refill, pt has appt tomorrow 02-06-12, pt would like to use [facility], , fax [phone]. STEREO INSTALLER Telephone Encounter - Edgar Carbone MD - 02/05/2012 12:17 PM CST Refilled Needs appointment Need pharm # STEREO INSTALLER Telephone Encounter - Victoria Grant - 02/05/2012 10:06 AM CST Pt requesting we send script to [facility] in [place] [address]. Please call pt at [phone] with any additional concerns/questions. Pt has been out of medication for 2 days. STEREO INSTALLER Telephone Encounter - Chapis Diaz - 02/04/2012 2:52 PM CST Not on nursing protocol, unable to fill medication. Please fill if appropriate. Need pharmacy info-dr carbone not in office the rest of today or tomorrow. Chapis Diaz RN STEREO INSTALLER Telephone Encounter - April Mccauley - 02/04/2012 2:21 PM CST Patient called in requesting a refill on her SUBUTEX prescription, patient can be reached via voicemail at phone number [phone] (home phone is voicemail only, please leave detailed voicemail here for pt to return call). STEREO INSTALLER documented in this encounter Plan of Treatment Upcoming Encounters Date Type Specialty Care Team Description 12/20/2021 Office Visit Wound Care Luis Camara, [place] [address] [place] [address] (Wo rk) 01/21/2022 PRE VISIT Gastroenterology Landon Warren, *-*HEATHER G RECORDS*-* MD Luis Fernando 6 [facility] [address] [place] [address] (Wo rk) 01/21/2022 Office Visit Gastroenterology Juanis Levi [address] [place] [address] Luis Fernando Miles MD [address] [place] [address] documented as of this encounter Visit Diagnoses Diagnosis Opiate dependence (H) - Primary Opioid type dependence, unspecified documented in this encounter Care Teams Ict Trainer Relationship Specialty Start Date End Date None, Bfp PCP - General 03/02/99 04/12/12 documented as of this encounter
--- OUTSIDE RECORDS SUMMARY | 2021-12-13 12:47 | XMS_ITS | Encounter Summary ---
:1980 Author Organization [place] Address [address] [place] [address] Care Team Providers Name Role Phone None, Bfp Primary Care Provider Unavailable Encounter Details Date Type Department Care Team Description 01/06/2005 Admission H&P (Director Digital) Unknown, Pr ovider Social History Tobacco Use Types Packs/Day Years Used Date Smoking Tobacco: Never Assessed Sex Assigned at Date Recorded Female 01/14/2020 10:57 AM LEASE PURCHASE DRIVER documented as of this encounter Plan of Treatment Upcoming Encounters Date Type Specialty Care Team Description 12/20/2021 Office Visit Wound Care Luis Camara DPM [address] [place], [place] [address] (Wo rk) 01/21/2022 PRE VISIT Gastroenterology Landon Warren, *-*WANDAIN G RECORDS*-* MD Luis Fernando [address] [place] [phone] (Wo rk) 01/21/2022 Office Visit Gastroenterology Juanis Levi [address] [place] [phone] Luis Fernando Miles MD [address] [place] [phone] documented as of this encounter Visit Diagnoses Not on filedocumented in this encounter Care Teams Cco & President Relationship Specialty Start Date End Date None, Bfp PCP - General 03/02/99 04/12/12 documented as of this encounter
--- OUTSIDE RECORDS SUMMARY | 2021-12-13 12:47 | XMS_ITS | Encounter Summary ---
:1980 Author Organization [place] Address [address] [place] [address] Care Team Providers Name Role Phone None, Bfp Primary Care Provider Unavailable Encounter Details Date Type Department Care Team Description 01/07/2005 Results Only [facility] molly Hdez MD [facility] Radiology Results [facility] [address] [place], [place] [address] (Wo rk) Social History Tobacco Use Types Packs/Day Years Used Date Smoking Tobacco: Never Assessed Sex Assigned at Date Recorded Female 01/14/2020 10:57 AM REFRACTORY TECHNICIAN documented as of this encounter Plan of Treatment Upcoming Encounters Date Type Specialty Care Team Description 12/20/2021 Office Visit Wound Care Luis Camara, [place] [address] [place], [place] [address] (Wo rk) 01/21/2022 PRE VISIT Gastroenterology Landon Warren, *-*WANDAIN G RECORDS*-* MD Luis Fernando 6 [facility] [address] [place], [place] [address] (Wo rk) 01/21/2022 Office Visit Gastroenterology Juanis Levi [address] [place] [phone] Luis Fernando Miles MD [facility] [address] [place] [address] documented as of this encounter Procedures Procedure Name Priority Date/Time Associated Diagnosis Comme nts HC CT LOWER Routine 01/07/2005 9:00 PM Results f or this EXTREMITY W/O REFRACTORY TECHNICIAN procedure are in CONTRAST the results section. documented in this encounter Results CT SCAN LEG (01/07/2005 9:00 PM REFRACTORY TECHNICIAN) Anatomical Region Laterality Modality Other Specimen (Source) Anatomical Collection Method Collection Time Re ceived Time Location / / Volume Laterality 01/07/2005 9:00 PM REFRACTORY TECHNICIAN Impressions 01/08/2005 1:40 PM REFRACTORY TECHNICIAN ? CT STUDY OF RIGHT LOWER EXTREMITY [...] on filedocumented in this encounter Care Teams Creative Art Director Relationship Specialty Start Date End Date None, Bfp PCP - General 03/02/99 04/12/12 documented as of this encounter
--- OUTSIDE RECORDS SUMMARY | 2021-12-13 12:47 | XMS_ITS | Encounter Summary ---
:1980 Author Organization [place] Address [address] [place] [address] Care Team Providers Name Role Phone None, Bfp Primary Care Provider Unavailable Reason for Visit Reason Comments Recheck Medication Encounter Details Date Type Department Care Team Description 01/02/2012 Office Visit [facility] Edgar Alfredo de pendence (H) (Primary Dx); Clinic Ashly Gauthier MD complicated by chemical depend ency, antepartum (H); [address] [facility] Vitamin B12 deficiency (non anaemic) [address] [place] [phone] Social History Tobacco Use Types Packs/Day Years Used Date Smoking Tobacco: Every Day Cigarettes 0.5 10 Smokeless Tobacco: Never Alcohol Use Standard Drinks/Week Comments No 0 (1 standard drink = 0.6 oz pure alcoho l) Sex Assigned at Date Recorded Female 01/14/2020 10:57 AM RELIGIOUS STUDIES PROFESSOR documented as of this encounter Last Filed Vital Signs Vital Sign Reading Time Taken Comments Blood Pressure 108/58 01/02/2012 3:34 PM RELIGIOUS STUDIES PROFESSOR Pulse 109 01/02/2012 3:34 PM RELIGIOUS STUDIES PROFESSOR Temperature - - Respiratory Rate - - Oxygen Saturation 99% 01/02/2012 3:34 PM RELIGIOUS STUDIES PROFESSOR Inhaled Oxygen Concentration - - Weight 73.5 kg (162 lb) 01/02/2012 3:34 PM RELIGIOUS STUDIES PROFESSOR Height 166.4 cm (5' 5.5) 01/02/2012 3:34 PM RELIGIOUS STUDIES PROFESSOR Body Mass Index 26.55 01/02/2012 3:34 PM RELIGIOUS STUDIES PROFESSOR documented in this encounter Progress Notes [...] relapse, and establishing a solid recovery program. GIOUS STUDIES PROFESSOR documented in this encounter Nursing Notes 01/02/2012 3:45 PM CST >> FERN MARINELLI Zoe Jan 02, 2012 4:02 PM Script for subutex 8mg and subutex 2mg was faxed to the [facility]. >> GIOVANNI HART Zoe Jan 02, [...] Team Description 12/20/2021 Office Visit Wound [facility] [place] Luis Lex, DPM [address] [place] [address] (Wo rk) 01/21/2022 PRE VISIT Gastroenterology Landon Warren, *-*HEATHER G RECORDS*-* MD Luis Fernando [address] [facility] [address] [place] [address] (Wo rk) 01/21/2022 Office Visit Gastroenterology Juanis Levi [address] [place] [address] Luis Fernando Miles MD [address] [phone] documented as of this encounter Procedures Procedure Name Priority Date/Time Associated Diagnosis Comme nts DRUG ABUSE SCREEN 6 Routine 01/02/2012 4:01 PM Opiate dependen ce Results for this CHEM DEP URINE RELIGIOUS STUDIES PROFESSOR (H) procedure are in ([facility]) the results section. documented in this encounter Results Drug abuse screen 6 urine (chem dep) ([facility]) (01/02/2012 4:01 PM RELIGIOUS STUDIES PROFESSOR) Component Value Ref Test Analysis Performed At [facility] gist Range Method Time Signature Amphetamine Qual Negative NEG [facility] Urine Cutoff for a negative amphetamine is 500 ng/mL or less. [facility] Barbiturates Qual Negative NEG [facility] Urine Cutoff for a negative barbiturate is 200 ng/mL or less. [facility] Benzodiazepine Negative NEG [facility] Qual Urine Cutoff for a negative benzodiazepine is 200 ng/mL or less . [facility] Cannabinoids Qual Negative NEG [facility] Urine Cutoff for a negative cannabinoid is 50 ng/mL or less. [facility] Cocaine Qual Negative NEG [facility] Urine Cutoff for a negative cocaine is 300 ng/mL or less. [facility] Ethanol Qual Negative NEG [facility] Urine Cutoff for a negative urine ethanol is 50 mg/dL or less. [facility] Opiates Negative NEG [facility] Qualitative Urine Cutoff for a negative opiate is 300 ng/mL or less. [facility] Specimen Anatomical Collection Method Collection Time Receive d Time (Source) Location / / Volume Laterality Urine specimen 01/02/2012 4:01 PM 012 4:02 (specimen) RELIGIOUS STUDIES PROFESSOR PM RELIGIOUS STUDIES PROFESSOR Edgar Alfredo MD LAB - URINE ORDERABLES Performing Organization Address City/State/ZIP Code Phon e Number [facility] [address] [place] [address] [facility] documented in this encounter Visit Diagnoses Diagnosis Opiate dependence (H) - Primary Opioid type dependence, unspecified complicated by chemical depend ency, antepartum Drug dependence, antepartum Vitamin B12 deficiency (non anaemic) Other B-complex deficiencies documented in this encounter Care Teams Wind Projects Supervisor Relationship Specialty Start Date End Date None, Bfp PCP - General 03/02/99 04/12/12 documented as of this encounter
--- OUTSIDE RECORDS SUMMARY | 2021-12-13 12:47 | XMS_ITS | Encounter Summary ---
:1980 Author Organization [place] Address [address] [place] [address] Care Team Providers Name Role Phone None, Bfp Primary Care Provider Unavailable Encounter Details Date Type Department Care Team Description 10/04/2003 Emergency room Shavonne Ansari MD EMERGENCY PHYSIC [facility] [address] [facility] [address] [place] [address] (Wo rk) Social History Tobacco Use Types Packs/Day Years Used Date Smoking Tobacco: Never Assessed Sex Assigned at Date Recorded Female 01/14/2020 10:57 AM SCULPTURE CONSERVATOR documented as of this encounter ED Notes [...] Acute pyelonephritis. SHAVONNE ANSARI MD MT: Document: [id number] [place], [place] Name: STEPHANI MCCORMICK EMERGENCY ROOM ENCOUNTER Page 2 of 2 LCN: ER DSC: 09/21/2003 [place], [place] Name: STEPHANI MCCORMICK MR#: : Admit Date: [id number] 1980 09/21/2003 Doctor: SHAVONNE ANSARI MD EMERGENCY ROOM ENCOUNTER Page 1 of 2 documented in this encounter Plan of Treatment Upcoming Encounters Date Type Specialty Care Team Description 12/20/2021 Office Visit Wound Care Luis Camara DPM [address] [place], [place] [phone] (Wo rk) 01/21/2022 PRE VISIT Gastroenterology Landon Warren, *-*HEATHER Barriga RECORDS*-* MD Luis Fernando [address] [phone] (Wo rk) 01/21/2022 Office Visit Gastroenterology Juanis Levi [address] [place] [phone] Luis Fernando Miles MD [address] [place] [phone] documented as of this encounter Visit Diagnoses Not on filedocumented in this encounter Care Teams Plaque Maker Relationship Specialty Start Date End Date None, Bfp PCP - General 03/02/99 04/12/12 documented as of this encounter
--- OUTSIDE RECORDS SUMMARY | 2021-12-13 12:47 | XMS_ITS | Encounter Summary ---
:1980 Author Organization [place] Address [address] [facility] [place] [address] Care Team Providers Name Role Phone None, Bfp Primary Care Provider Unavailable Reason for Visit Reason Comments Recheck Medication please ask about recent PAP date- PCP patient needs LDL goal noted Encounter Details Date Type Department Care Team Description 10/24/2011 Office Visit [facility] Edgar Alfredo (H) Clinic Ashly Gauthier MD (Primary Dx) [address] [facility] [address] [facility] [address] [place] [phone] Social History Tobacco Use Types Packs/Day Years Used Date Smoking Tobacco: Every Day Cigarettes 0.5 10 Smokeless Tobacco: Never Alcohol Use Standard Drinks/Week Comments No 0 (1 standard drink = 0.6 oz pure alcoho l) Sex Assigned at Date Recorded Female 01/14/2020 10:57 AM AUTOMOBILE APPRAISER documented as of this encounter Last Filed [...] to receive sub maintenance Was going to [facility] and was on 24 mg Subutex [...] Script for suboxone was faxed to the [facility] >> BRYNN HAMMOND FriOct 24, 2011 [...] Care Luis Camara, [place]VIN [address] [place] [address] (Wo rk) 01/21/2022 PRE VISIT Gastroenterology Landon Warren, *-*WANDAIN G RECORDS*-* MD Luis Fernando [address] [place] [address] (Wo rk) 01/21/2022 Office Visit Gastroenterology Juanis Levi [address] [place] [phone] Luis Fernando Miles MD [address] [place] [address] documented as of this encounter Visit Diagnoses Diagnosis Opiate dependence (H) - Primary Opioid type dependence, unspecified documented in this encounter Care Teams Volunteer Manager Relationship Specialty Start Date End Date None, Bfp PCP - General 03/02/99 04/12/12 documented as of this encounter
--- OUTSIDE RECORDS SUMMARY | 2021-12-13 12:47 | XMS_ITS | Encounter Summary ---
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 She is otherwise unemployed. PHYSICAL EXAMINATION: VITAL [...] MD MT: SANDR[facility]#[id number] Name: STEPHANI MCCORMICK Account: [id number] : 1980 Visit Date: 05/23/2009 Document: [id number] documented in this encounter Plan of Treatment Upcoming Encounters Date Type Specialty Care Team Description 12/20/2021 Office Visit Wound Care Luis Camara, [place] [address] [place] [address] (Reinaldo molina) 01/21/2022 PRE VISIT Gastroenterology Landon Warren, *-*INCOMIN G RECORDS*-* MD Luis Fernando [address] [place] [address] (Reinaldo molina) 01/21/2022 Office Visit Gastroenterology Juanis Levi [address] [place] [address] Luis Fernando Miles MD [address] [place] [address] documented as of this encounter Visit Diagnoses Not on filedocumented in this encounter Care Teams Bottle Hop Relationship Specialty Start Date End Date None, Bfp PCP - General 03/02/99 04/12/12 documented as of this encounter
--- OUTSIDE RECORDS SUMMARY | 2021-12-13 12:47 | XMS_ITS | Encounter Summary ---
:1980 Author Organization [place] Address [address] [place] [address] Care Team Providers Name Role Phone None, Bfp Primary Care Provider Unavailable Encounter Details Date Type Department Care Team Description 08/30/2006 Historic Results [facility] Do nuno Barillas MD Medical [address] [place] [address] (Wo rk) Social History Tobacco Use Types Packs/Day Years Used Date Smoking Tobacco: Never Assessed Sex Assigned at Date Recorded Female 01/14/2020 10:57 AM CHASSIS WIRER documented as of this encounter Plan of Treatment Upcoming Encounters Date Type Specialty Care Team Description 12/20/2021 Office Visit Wound Care Luis Camara, [place] [address] [place], [place] [address] (Wo rk) 01/21/2022 PRE VISIT Gastroenterology Landon Warren, *-*WANDAIN G RECORDS*-* MD Luis Fernando [address] [address] (Wo rk) 01/21/2022 Office Visit Gastroenterology Juanis Levi [address] [place] [address] Luis Fernando Miles MD 6 [facility] [address] [place] [address] documented as of this encounter Procedures Procedure [...] (ABNORMAL) CRP inflammation (08/30/2006 3:06 PM CDT) [facility] [employer] Method Time Signature CRP Inflammation 8.6 (H) 0.0 - 8.0 MISYS mg/L Specimen Anatomical Collection Method Collection Time Receive d Time (Source) Location / / Volume Laterality 08/30/2006 3:06 PM 7 2:52 CDT PM CDT Inder Barillas MD LAB - BLOOD ORDERABLES Performing Organization Address City/State/ZIP Code Phon e Number MISYS Hemogram differential and platelet (08/30/2006 3:06 PM CDT) [facility] [employer] Method Time Signature MCV [id number] - [...] LAB - BLOOD ORDERABLES Performing Organization Address City/State/[facility] Phon e Number MISYS Erythrocyte sedimentation rate auto (08/30/2006 3:06 PM CDT) P athologist Signature Sed Rate 17 0 - 20 mm/h MISYS Specimen Anatomical Collection Method Collection Time Receive d Time (Source) Location / / Volume Laterality 08/30/2006 3:06 PM 7 2:52 CDT PM CDT Inder Barillas MD LAB - BLOOD ORDERABLES Performing Organization Address City/State/ZIP Code Phon e Number MISYS Lymes antibodies [...] to Borrelia ?b urgdorferi detected. Performed by [facility], [address] [place] [phone] [email or web address], ??Scout Goodman MD - Lab. Director Specimen Anatomical Collection Method Collection Time Receive d Time (Source) Location / / Volume Laterality 08/30/2006 3:06 PM 7 2:52 CDT PM CDT Inder Barillas MD LAB - BLOOD ORDERABLES Performing Organization Address City/[facility] Code Phon e Number MISYS HCG qualitative urine [...]
--- OUTSIDE RECORDS SUMMARY | 2021-12-13 12:47 | XMS_ITS | Encounter Summary ---
:1980 Author Organization [place] Address [facility] [address] Care Team Providers Name Role Phone None, Bfp Primary Care Provider Unavailable Reason for Visit Reason Onset Date Comments Medication Request 11/04/2011 Encounter Details Date Type Department Care Team Description 11/04/2011 Telephone [facility] Edgar Alfredo Ma, Medication Request Ashly VÁSQUEZ [address] [place] [address] [place] [address] [address] [place] [phone] (Reinaldo rk) Social History Tobacco Use Types Packs/Day Years Used Date Smoking Tobacco: Every Day Cigarettes 0.5 10 Smokeless Tobacco: Never Alcohol Use Standard Drinks/Week Comments No 0 (1 standard drink = 0.6 oz pure alcoho l) Sex Assigned at Date Recorded Female 01/14/2020 10:57 AM THIOKOL OPERATOR documented as of this encounter Miscellaneous Notes Telephone Encounter - Madonna Cody - 11/04/2011 1:43 PM CDT Script for suboxone was faxed to the [facility] in [place]. Telephone Encounter - Edgar Alfredo MD - [...] until . She can be reached at [phone]. documented in this encounter Plan of Treatment Upcoming Encounters Date Type Specialty Care Team Description 12/20/2021 Office Visit Wound Care Luis Camara, [place]VIN [address] [place] [address] (Wo rk) 01/21/2022 PRE VISIT Gastroenterology Landon Warren, *-*WANDAIN G RECORDS*-* MD Luis Fernando [address] [place] [address] (Wo rk) 01/21/2022 Office Visit Gastroenterology Juanis Levi [address] [place] [phone] Luis Fernando Miles MD [address] [place] [address] documented as of this encounter Visit Diagnoses Diagnosis Opiate dependence (H) - Primary Opioid type dependence, unspecified documented in this encounter Care Teams Consumer Attorney Relationship Specialty Start Date End Date None, Bfp PCP - General 03/02/99 04/12/12 documented as of this encounter
--- OUTSIDE RECORDS SUMMARY | 2021-12-13 12:47 | XMS_ITS | Encounter Summary ---
:1980 Author Organization [place] Address [facility]0 [place] [address] Care Team Providers Name Role Phone None, Bfp Primary Care Provider Unavailable Encounter Details Date Type Department Care Team Description 01/16/2005 Operative Report Mal Dupree MD (Tack Cleaner) [facility] [address] [place], [place] [address] (Wo rk) Social History Tobacco Use Types Packs/Day Years Used Date Smoking Tobacco: Never Assessed Sex Assigned at Date Recorded Female 01/14/2020 10:57 AM SMALL BUSINESS 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 documented as of this encounter Progress Notes Radames Dupree - 01/16/2005 11:59 PM SMALL BUSINESS 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 PREOPERATIVE DIAGNOSIS: Right calcaneus fracture at the calcaneocuboid joint. POSTOPERATIVE DIAGNOSIS: Right calcaneus fracture at the calcaneocuboid joint. NAME OF OPERATION: Primary fusion of the right calcaneocuboid joint with bone grafting. SURGEON: Radames Dupree MD. DOG TRACK KENNEL MANAGER: Carmen Winston Mixed Crop And Livestock Farm Worker. OPERATIVE PROCEDURE: The patient was brought to [...] entire plate on. This was removed with [email or web address] steel plate printer. The plate was then applied to the [...] by: RADAMES DUPREE MD MT: estefania Document: [id number] LCN: [id number] DSC: 01/16/2005 Name: MR#: : Procedure Date: STEPHANI MCCORMICK -66 1980 01/16/2005 OPERATIVE REPORT Page 2 of 2 L BUSINESS 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 documented in this encounter Plan of Treatment Upcoming Encounters Date Type Specialty Care Team Description 12/20/2021 Office Visit Wound Care Luis Camara, CALVIN [address] [place] [address] (Wo rk) 01/21/2022 PRE VISIT Gastroenterology Landon Warren, *-*HEATHER G RECORDS*-* MD Luis Fernando [address] [place] [address] (Wo rk) 01/21/2022 Office Visit Gastroenterology Juanis Levi [address] [place] [phone] Luis Fernando Miles MD [address] [place] [phone] documented as of this encounter Visit Diagnoses Not on filedocumented in this encounter Care Teams Anesthesiology Tech Relationship Specialty Start Date End Date None, Bfp PCP - General 03/02/99 04/12/12 documented as of this encounter
--- OUTSIDE RECORDS SUMMARY | 2021-12-13 12:47 | XMS_ITS | Encounter Summary ---
:1980 Author Organization [place] Address [facility]0 [place] [address] Care Team Providers Name Role Phone None, Bfp Primary Care Provider Unavailable Edgar Alfredo MD Primary Care Provider Reason for Visit Reason Onset Date Comments Health Maintenance 10/28/2011 LDL goal Encounter Details Date Type Department Care Team Description 10/28/2011 Telephone [facility] Edgar Alfredo Hea lt Maintenance ([facility] [place] goal ) [address] [facility] [address] [place] [address] [address] [place] [phone] (Wo rk) Social History Tobacco Use Types Packs/Day Years Used Date Smoking Tobacco: Every Day Cigarettes 0.5 10 Smokeless Tobacco: Never Alcohol Use Standard Drinks/Week Comments No 0 (1 standard drink = 0.6 oz pure alcoho l) Sex Assigned at Date Recorded Female 01/14/2020 10:57 AM SENIOR PROJECT LEADER/TEAM LEAD documented as of this encounter Miscellaneous Notes Telephone Encounter - Marycarmen Spence - 10/28/2011 3:45 PM CDT Per quality measure review, please add an LDL goal to this patient's current problem list. Marycarmen Spence RN documented in this encounter Plan of Treatment Upcoming Encounters Date Type Specialty Care Team Description 12/20/2021 Office Visit Wound Care Luis Camara, [place] [address] [place] [address] (Wo rk) 01/21/2022 PRE VISIT Gastroenterology Landon Warren, *-*INCOMIN G RECORDS*-* MD Luis Fernando 516 [facility] [address] [place] [address] (Wo rk) 01/21/2022 Office Visit Gastroenterology Juanis eLvi 2450 [place] [address] Luis Fernando Miles MD [address] [id number] documented as of this encounter Visit Diagnoses Not on filedocumented in this encounter Care Teams Principal Data Architect Relationship Specialty Start Date End Date None, Bfp PCP - General 03/02/99 04/12/12 Edgar Alfredo MD PCP - General Family Practice 04/13/12 08/11/14 [address] [facility] 700 [place] [phone] documented as of this encounter
--- OUTSIDE RECORDS SUMMARY | 2021-12-13 12:47 | XMS_ITS | Encounter Summary ---
:1980 Author Organization [place] Address [address] [place] [address] Care Team Providers Name Role Phone None, Bfp Primary Care Provider Unavailable Encounter Details Date Type Department Care Team Description 05/05/2004 Admission H&P (Business Performance Manager) Unknown, Pr ovider Social History Tobacco Use Types Packs/Day Years Used Date Smoking Tobacco: Never Assessed Sex Assigned at Date Recorded Female 01/14/2020 10:57 AM RANCH MANAGER documented as of this encounter Plan of Treatment Upcoming Encounters Date Type Specialty Care Team Description 12/20/2021 Office Visit Wound Care Luis Camara DPM 9[address] [place], [place] [phone] (Wo rk) 01/21/2022 PRE VISIT Gastroenterology Landon Warren, *-*WANDAIN G RECORDS*-* MD Luis Fernando [address] [place] [phone] (Wo rk) 01/21/2022 Office Visit Gastroenterology Juanis Levi [address]50 [place] [phone] Luis Fernando Miles MD [address] [place] [phone] documented as of this encounter Visit Diagnoses Not on filedocumented in this encounter Care Teams Dielectric Testing Machine Operator Relationship Specialty Start Date End Date None, Bfp PCP - General 03/02/99 04/12/12 documented as of this encounter
--- OUTSIDE RECORDS SUMMARY | 2021-12-13 12:47 | XMS_ITS | Encounter Summary ---
:1980 Author Organization [place] Address [address] [place] [address] Care Team Providers Name Role Phone None, Bfp Primary Care Provider Unavailable Encounter Details Date Type Department Care Team Description 05/17/2008 Emergency room [facility] Philippe Gonzalez MD [facility]Y Y [facility] Results [address] [place], [place] [address] (Wo rk) Social History Tobacco Use Types Packs/Day Years Used Date Smoking Tobacco: Never Assessed Sex Assigned at Date Recorded Female 01/14/2020 10:57 AM JANITORIAL ACCOUNT MANAGER documented as of this encounter [...] instructed to try using one of the [id number] gel heel inserts. If this is inadequate, she will be referred to orthopedics and can follow upwith Dr. Tipton this coming week. Electronically signed on 05/29/2008 16:12 by AKIRA GONZALEZ MD MT: [id number] Name: STEPHANI MCCORMICK MRN: [id number] Account: [id number] : 1980 Visit Date: 05/17/2008 Document: [id number] documented in this encounter Plan of Treatment Upcoming Encounters Date Type Specialty Care Team Description 12/20/2021 Office Visit Wound Care Luis Camara DPM 909 [place] [address] (Reinaldo molina) 01/21/2022 PRE VISIT Gastroenterology Landon Warren, *-*WANDAIN G RECORDS*-* MD Luis Fernando [address] [address] (Wo rk) 01/21/2022 Office Visit Gastroenterology Juanis Levi [address] [place] [address] Luis Fernando Miles MD 516 [facility] 2A [place] [address] documented as of this encounter Visit Diagnoses Not on filedocumented in this encounter Care Teams Photocopying Machine Operator Relationship Specialty Start Date End Date None, Bfp PCP - General 03/02/99 04/12/12 documented as of this encounter
--- OUTSIDE RECORDS SUMMARY | 2021-12-13 12:47 | XMS_ITS | Encounter Summary ---
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 documented as of this encounter Plan of Treatment Upcoming Encounters Date Type Specialty Care Team Description 12/20/2021 Office Visit Wound Care Luis Camara, DPM 909 [place] [address] (Wo rk) 01/21/2022 PRE VISIT Gastroenterology Landon Warren, *-*WANDAIN G RECORDS*-* MD Luis Fernando 6 [facility] [address] [place], [place] [phone] (Wo rk) 01/21/2022 Office Visit Gastroenterology Juanis Levi 2450 [place] [phone] Luis Fernando Miles MD 6 [facility] 2[facility] [place] [address] documented as of this encounter Procedures Procedure [...] (FL, RH, SH) (05/24/2009 12:28 AM CDT) Patholo gist Method Time Signature Amphetamine Qual Negative [...] on filedocumented in this encounter Care Teams Content Production Specialist Relationship Specialty Start Date End Date None, Bfp PCP - General 03/02/99 04/12/12 documented as of this encounter
--- OUTSIDE RECORDS SUMMARY | 2021-12-13 12:47 | XMS_ITS | Encounter Summary ---
:1980 Author Organization [place] Address [address] [facility] [place] [address] Care Team Providers Name Role Phone None, Bfp Primary Care Provider Unavailable Reason for Visit Reason Onset Date Comments Refill Request 01/20/2012 Encounter Details Date Type Department Care Team Description 01/20/2012 Refill [facility] Nithya Alfredo MD Refill Request [address] [place] [address] [address] [phone] [place] [phone] Social History Tobacco Use Types Packs/Day Years Used Date Smoking Tobacco: Every Day Cigarettes 0.5 10 Smokeless Tobacco: Never Alcohol Use Standard Drinks/Week Comments No 0 (1 standard drink = 0.6 oz pure alcoho l) Sex Assigned at Date Recorded Female 01/14/2020 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 Marycarmen Spence RN [employer] Telephone Encounter - Violeta Soto - 01/20/2012 4:56 PM CST Patient called - Please refill prescription to the [facility] on [address] [facility] [address]. Their number is [phone]. [facility] Telephone Encounter - Sintia Colon - 01/20/2012 4:01 PM CST There are two different [facility] in [place]- patient was called to clarify which one she wants the medication sent to. Patient mother picked up the phone and stated she didn't know her number but she would try to contact patient to have her call the clinic. Until we hear from patient, the scripts are sitting in the top drawer of [employer]. Sintia Colon RN [employer] [facility] [facility] Telephone Encounter - Edgar Alfredo MD - 01/20/2012 3:56 PM CST Ordered Need pharm info In fax box [employer] [facility] Telephone Encounter - Tigist Fraga - 01/20/2012 3:43 PM CST Pt calling, states she is out of subutex, 8 mg and 2 mg as was only given 15 days worth at last refill. Before ending conversation, pt also stated she was out of Wellbutrin. [facility] [place]. Caller states she can be reached or messages left at [phone] which is her mother's phone number. Aware Dr Alfredo not scheduled in clinic this afternoon. [employer] documented in this encounter Plan of Treatment Upcoming Encounters Date Type Specialty Care Team Description 12/20/2021 Office Visit Wound Care Luis Camara DPM 909 [place] [address] (Wo rk) 01/21/2022 PRE VISIT Gastroenterology Landon Warren, *-*WANDAIN G RECORDS*-* MD Luis Fernando [address] [address] (Wo rk) 01/21/2022 Office Visit Gastroenterology Juanis Leiv 2450 [place] [phone] Luis Fernando Miles MD 6 [facility] [address] [place] [address] documented as of this encounter Visit Diagnoses Diagnosis Opiate dependence (H) - Primary Opioid type dependence, unspecified Moderate major depression (H) Major depressive disorder, single episod e, moderate documented in this encounter Care Teams Stock Unloader Relationship Specialty Start Date End Date None, Bfp PCP - General 03/02/99 04/12/12 documented as of this encounter
--- OUTSIDE RECORDS SUMMARY | 2021-12-13 12:47 | XMS_ITS | Encounter Summary ---
:1980 Author Organization [place] Address [facility]0 [facility] 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 documented as of this encounter Plan of Treatment Upcoming Encounters Date Type Specialty Care Team Description 12/20/2021 Office Visit Wound Care Luis Camara, [place] [address] [place], [place] [phone] (Wo rk) 01/21/2022 PRE VISIT Gastroenterology Landon Warren, *-*WANDAIN G RECORDS*-* MD Luis Fernando [address] [place] [phone] (Wo rk) 01/21/2022 Office Visit Gastroenterology Juanis Levi [address] [place] [phone] Luis Fernando Miles MD [address] [place] [phone] documented as of this encounter Procedures Procedure Name Priority Date/Time Associated Comments Diagnosis WET PREPARATION Routine 04/10/2010 11:55 Results for this PM LANDSCAPE AND YARDWORK LABORER procedure are i n the results section. NEISSERIA GONORRHOEAE Routine 04/10/2010 11:55 Re sults for this PCR PM LANDSCAPE AND YARDWORK LABORER procedure are i n the results section. CHLAMYDIA TRACHOMATIS Routine 04/10/2010 11:55 Re sults for this PCR PM LANDSCAPE AND YARDWORK LABORER procedure are i n the results section. CBC WITH PLATELETS & STAT 04/10/2010 11:20 Res ults for this DIFFERENTIAL PM LANDSCAPE AND YARDWORK LABORER procedure are i n the results section. BILIRUBIN TOTAL Routine 04/10/2010 11:20 Results for this PM LANDSCAPE AND YARDWORK LABORER procedure are i n the results section. AST Routine 04/10/2010 11:20 Results for this PM LANDSCAPE AND YARDWORK LABORER procedure are i n the results section. ALT Routine 04/10/2010 11:20 Results for this PM LANDSCAPE AND YARDWORK LABORER procedure are i n the results section. ALKALINE PHOSPHATASE Routine 04/10/2010 11:20 Res ults for this PM LANDSCAPE AND YARDWORK LABORER procedure are i n the results section. BASIC METABOLIC PANEL STAT 04/10/2010 11:20 Re sults for this PM LANDSCAPE AND YARDWORK LABORER procedure are i n the results section. ROUTINE UA WITH STAT 04/10/2010 10:14 Results for this MICROSCOPIC PM LANDSCAPE AND YARDWORK LABORER procedure are i n the results section. URINE CULTURE Routine 04/10/2010 10:14 Results fo r this PM LANDSCAPE AND YARDWORK LABORER procedure are i n the results section. documented in this encounter Results Chlamydia trachomatis PCR (04/10/2010 11:55 PM LANDSCAPE AND YARDWORK LABORER) Component Value Ref Test Analysis Performed At [facility] [employer] Method Time Signature Specimen Cervical MISYS Description Chlamydia Negative for C. MISYS Trachomatis PCR trachomatis rRNA by drywall metal stud worker mediated amplification. Comment: A negative result by drywall metal stud worker medi ated amplification does not preclude the presence of C. trachomatis infection be cause results are dependent on proper and adequate collection, absence of inh ibitors, and sufficient rRNA to be detected. Specimen Anatomical Collection Method Collection Time Receive d Time (Source) Location / / Volume Laterality 04/10/2010 11:55 04/11/2010 PM LANDSCAPE AND YARDWORK LABORER 12:10 AM LANDSCAPE AND YARDWORK LABORER Physician No Ref-Primary LAB - MICRO GENERAL ORDERABL ES Performing Organization Address City/State/ZIP Code Phon e Number MISYS Neisseria gonorrhoeae PCR (04/10/2010 11:55 PM LANDSCAPE AND YARDWORK LABORER) [facility] [employer] Method Time Signature Specimen Cervical MISYS Descrip N Gonorrhea Negative for N. MISYS PCR gonorrhoeae rRNA by drywall metal stud worker mediated amplification. Comment: A negative result by drywall metal stud worker medi ated amplification does not preclude the presence of N. gonorrhoeae infection be cause results are dependent on proper and adequate collection, absence of inh ibitors, and sufficient rRNA to be detected. Specimen Anatomical Collection Method Collection Time Receive d Time (Source) Location / / Volume Laterality 04/10/2010 11:55 04/11/2010 PM LANDSCAPE AND YARDWORK LABORER 12:10 AM LANDSCAPE AND YARDWORK LABORER Physician No Ref-Primary LAB - MICRO GENERAL ORDERABL ES Performing Organization Address City/Va Hospital/ZIP Code Phon e Number MISYS Wet prep (04/10/2010 11:55 PM LANDSCAPE AND YARDWORK LABORER) [facility] [employer] Method Time [facility] Specimen Vagina MISYS Description Micro Report FINAL MISYS Status 04/11/2010 Wet Prep Moderate MISYS PMNs seen Comment: No yeast seen No Trichomonas seen Clue cells seen Specimen Anatomical Collection Method Collection Time Receive d Time (Source) Location / / Volume Laterality 04/10/2010 11:55 04/11/2010 PM LANDSCAPE AND YARDWORK LABORER 12:10 AM LANDSCAPE AND YARDWORK LABORER Physician No Ref-Primary LAB - MICRO GENERAL ORDERABL ES Performing Organization Address City/State/ZIP Code Phon e Number MISYS (ABNORMAL) CBC with platelets differential (04/10/2010 11:20 PM LANDSCAPE AND YARDWORK LABORER) [facility] Method Time [facility] MCV 87 78 - 100 MISYS fl [...] / Volume Laterality 04/10/2010 11:20 04/10/2010 PM LANDSCAPE AND YARDWORK LABORER 11:03 PM LANDSCAPE AND YARDWORK LABORER Breanna Main MD LAB - BLOOD ORDERABLES Performing Organization Address City/State/ZIP Code Phon e Number MISYS Basic metabolic panel (04/10/2010 11:20 PM LANDSCAPE AND YARDWORK LABORER) P athologist Signature Sodium 135 133 - [...] / Volume Laterality 04/10/2010 11:20 04/10/2010 PM LANDSCAPE AND YARDWORK LABORER 11:03 PM LANDSCAPE AND YARDWORK LABORER Breanna Main MD LAB - BLOOD ORDERABLES Performing Organization Address City/State/ZIP Code Phon e Number MISYS Alkaline phosphatase (04/10/2010 11:20 PM LANDSCAPE AND YARDWORK LABORER) P athologist Signature Alkaline 55 40 - 150 MISYS Phosphatase U/L Specimen Anatomical Collection Method Collection Time Receive d Time (Source) Location / / Volume Laterality 04/10/2010 11:20 04/11/2010 PM LANDSCAPE AND YARDWORK LABORER 12:08 AM LANDSCAPE AND YARDWORK LABORER Breanna Main MD LAB - BLOOD ORDERABLES Performing Organization Address [facility]/Va Hospital/ZIP Code Phon e Number MISYS ALT (04/10/2010 11:20 PM LANDSCAPE AND YARDWORK LABORER) athologist Signature ALT 41 0 - 50 U/L MISYS Specimen Anatomical Collection Method Collection Time Receive d Time (Source) Location / / Volume Laterality 04/10/2010 11:20 04/11/2010 PM LANDSCAPE AND YARDWORK LABORER 12:08 AM LANDSCAPE AND YARDWORK LABORER Breanna Main MD LAB - BLOOD ORDERABLES Performing Organization Address [facility]/Va Hospital/[facility] Code Phon e Number MISYS AST (04/10/2010 11:20 PM LANDSCAPE AND YARDWORK LABORER) athologist Signature AST 31 0 - 45 U/L MISYS Specimen Anatomical Collection Method Collection Time Receive d Time (Source) Location / / Volume Laterality 04/10/2010 11:20 04/11/2010 PM LANDSCAPE AND YARDWORK LABORER 12:08 AM LANDSCAPE AND YARDWORK LABORER Breanna Main MD LAB - BLOOD ORDERABLES Performing Organization Address [facility]/Va Hospital/[facility] Phon e Number MISYS Bilirubin total (04/10/2010 11:20 PM LANDSCAPE AND YARDWORK LABORER) athologist Signature Bilirubin Total 0.4 0.2 - 1.3 MISYS mg/dL Specimen Anatomical Collection Method Collection Time Receive d Time (Source) Location / / Volume Laterality 04/10/2010 11:20 04/11/2010 PM LANDSCAPE AND YARDWORK LABORER 12:08 AM LANDSCAPE AND YARDWORK LABORER Breanna Main MD LAB - BLOOD ORDERABLES Performing Organization Address [facility] Hospital/[facility] Code Phon e Number MISYS (ABNORMAL) Routine UA with microscopic (04/10/2010 10:14 PM LANDSCAPE AND YARDWORK LABORER) [facility] Method Time Signature Source Midstream MISYS Urine Color Urine Yellow MISYS Appearance Urine Slightly MISYS Cloudy Glucose Urine Negative NEG mg/dL MISYS Bilirubin Urine Negative NEG MISYS Ketones Urine Negative NEG mg/dL MISYS Specific [place] 1.019 1.003 - MISYS Urine 1.035 Blood [...] / Volume Laterality 04/10/2010 10:14 04/10/2010 PM LANDSCAPE AND YARDWORK LABORER 10:17 PM LANDSCAPE AND YARDWORK LABORER Breanna Main MD LAB - URINE ORDERABLES Performing Organization Address City/State/ZIP Code Phon e Number MISYS Urine culture (04/10/2010 10:14 PM LANDSCAPE AND YARDWORK LABORER) [facility] gist Method Time Signature Specimen Midstream MISYS Description Urine Culture Micro No growth MISYS Micro Report FINAL MISYS Status 04/12/2010 Specimen Anatomical Collection Method Collection Time Receive d Time (Source) Location / / Volume Laterality 04/10/2010 10:14 04/10/2010 PM LANDSCAPE AND YARDWORK LABORER 10:37 PM LANDSCAPE AND YARDWORK LABORER Physician No Ref-Primary LAB - MICRO GENERAL ORDERABL ES Performing Organization Address City/State/ZIP Code Phon e Number MISYS documented in this encounter Visit Diagnoses Not on filedocumented in this encounter Care Teams Maple Products Maker Relationship Specialty Start Date End Date None, Bfp PCP - General 03/02/99 04/12/12 documented as of this encounter
--- OUTSIDE RECORDS SUMMARY | 2021-12-13 12:47 | XMS_ITS | Encounter Summary ---
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 documented as of this encounter Plan of Treatment Upcoming Encounters Date Type Specialty Care Team Description 12/20/2021 Office Visit Wound Care Luis Camara DPM [address] [place] [address] (Wo rk) 01/21/2022 PRE VISIT Gastroenterology Landon Warren, *-*HEATHER G RECORDS*-* MD Luis Fernando [address] [address] (Wo rk) 01/21/2022 Office Visit Gastroenterology Juanis Levi [address] [place] [phone] Luis Fernando Miles MD [address] [address] documented as of this encounter Procedures Procedure Name Priority Date/Time Associated Comments Diagnosis UA MACROSCOPIC WITH STAT 01/05/2005 8:45 PM Re sults for this REFLEX TO MICRO PLASTER WHITTLER procedure ar e in the results section. URINE MICROSCOPIC Routine 01/05/2005 8:45 PM Resu lts for this EXAM PLASTER WHITTLER procedure are i n the results section. DRUG ABUSE SCREEN 8 STAT 01/05/2005 8:45 PM Re sults for this URINE (UR) PLASTER WHITTLER procedure are i n the results section. documented in this encounter Results (ABNORMAL) UA macroscopic with reflex to micro (01/05/2005 8:45 PM PLASTER WHITTLER) [facility] OrderBorder Method Time Signature Source Midstream MISYS Urine Color Urine Yellow MISYS Appearance Urine Clear MISYS Glucose Urine Negative NEG mg/dL MISYS Bilirubin Urine Negative NEG MISYS Ketones Urine Negative NEG mg/dL MISYS Specific [place] 1.034 1.003 - MISYS Urine 1.035 Blood [...] Volume Laterality 01/05/2005 8:45 PM 5 8:45 PLASTER WHITTLER PM PLASTER WHITTLER Shukri Reddy MD LAB - URINE ORDERABLES Performing Organization Address City/State/ZIP Code Phon e Number MISYS (ABNORMAL) Drug abuse screen 8 urine (UR) (01/05/2005 8:45 PM PLASTER WHITTLER) [facility] OrderBorder Method Time Signature Amphetamine Qual Negative NEG [...] Volume Laterality 01/05/2005 8:45 PM 5 8:45 PLASTER WHITTLER PM PLASTER WHITTLER Shukri Reddy MD LAB - URINE ORDERABLES Performing Organization Address City/State/ZIP Code Phon e Number MISYS (ABNORMAL) Microscopic exam urine (01/05/2005 8:45 PM PLASTER WHITTLER) [facility] gist Method Time Signature WBC Urine [...] Volume Laterality 01/05/2005 8:45 PM 5 9:00 PLASTER WHITTLER PM PLASTER WHITTLER Shukri Reddy MD LAB - URINE ORDERABLES Performing Organization Address City/State/ZIP Code Phon e Number MISYS documented in this encounter Visit Diagnoses Not on filedocumented in this encounter Care Teams Interpreter Relationship Specialty Start Date End Date None, Bfp PCP - General 03/02/99 04/12/12 documented as of this encounter
--- OUTSIDE RECORDS SUMMARY | 2021-12-13 12:47 | XMS_ITS | Encounter Summary ---
:1980 Author Organization [place] Address [address] [facility] [place] [address] Care Team Providers Name Role Phone None, Bfp Primary Care Provider Unavailable Encounter Details Date Type Department Care Team Description 01/08/2005 Results Only [facility] Edgar Alfredo MD [facility] Radiology Results [address] [place] [address] (Wo rk) Social History Tobacco Use Types Packs/Day Years Used Date Smoking Tobacco: Never Assessed Sex Assigned at Date Recorded Female 01/14/2020 10:57 AM CEMENT RAILROAD CAR LOADER documented as of this encounter Plan of Treatment Upcoming Encounters Date Type Specialty Care Team Description 12/20/2021 Office Visit Wound Care Luis Camara, CALVIN [address] [place], [place] [phone] (Wo rk) 01/21/2022 PRE VISIT Gastroenterology Landon Warren, *-*WANDAIN G RECORDS*-* MD Luis Fernando [address] [facility] [address] [place], [place] [phone] (Wo rk) 01/21/2022 Office Visit Gastroenterology Juanis Levi [address] [place] [phone] Luis Fernando Miles MD [address] [place], [place] [address] [address] [place] [address] documented as of this encounter Procedures Procedure Name Priority Date/Time Associated Diagnosis Comme nts [facility] OB 2-3 Routine 01/08/2005 12:11 PM Results for this TRIMESTER CEMENT RAILROAD CAR LOADER procedure are i n MAT/, SINGLE the result s GESTATION section. documented in this encounter Results SONO COMPLETE (01/08/2005 12:11 PM CEMENT RAILROAD CAR LOADER) Anatomical Region Laterality Modality Other Specimen (Source) Anatomical Collection Method Collection Time Re ceived Time Location / / Volume Laterality 01/08/2005 12:11 PM CEMENT RAILROAD CAR LOADER Impressions 01/12/2005 7:22 AM CEMENT RAILROAD CAR LOADER ?? OBSTETRIC ULTRASOUND, SECOND/THIRD TRIME STER ?? CLINICAL HISTORY: ??The patient is withd rawing. ?? survey. ?? FINDINGS: ??Single living fetus seen in longitudinal lie and cephalic presentation. ??Cardiac activity 130 cici ts per minute and regular. ?? Placenta anterior without evidence of pr evia or abruption. ??Amniotic fluid volume normal with four-quadrant i ndex of 13. ??Umbilical artery wowbklmt-bi-iyyurjjwx ratio of 4.2 to 1, which is [...] on filedocumented in this encounter Care Teams Applications Project Manager Relationship Specialty Start Date End Date None, Bfp PCP - General 03/02/99 04/12/12 documented as of this encounter
--- OUTSIDE RECORDS SUMMARY | 2021-12-13 12:47 | XMS_ITS | Encounter Summary ---
:1980 Author Organization [place] Address [facility] [place] [address] Care Team Providers Name Role Phone None, Bfp Primary Care Provider Unavailable Encounter Details Date Type Department Care Team Description 01/11/2005 Discharge Summary (Senior Software Architect) Unknown , Provider Social History Tobacco Use Types Packs/Day Years Used Date Smoking Tobacco: Never Assessed Sex Assigned at Date Recorded Female 01/14/2020 10:57 AM CHIEF LIFESTYLE OFFICER documented as of this encounter Plan of Treatment Upcoming Encounters Date Type Specialty Care Team Description 12/20/2021 Office Visit Wound Care Luis Camara DPM [address] [place], [place] [phone] (Wo rk) 01/21/2022 PRE VISIT Gastroenterology Landon Warren, *-*WANDAIN G RECORDS*-* MD Luis Fernando [address] [place] [phone] (Wo rk) 01/21/2022 Office Visit Gastroenterology Juanis Levi [address] [place] [phone] Luis Fernando Miles MD [address] [place] [phone] documented as of this encounter Visit Diagnoses Not on filedocumented in this encounter Care Teams Kiln Head House Operator Relationship Specialty Start Date End Date None, Bfp PCP - General 03/02/99 04/12/12 documented as of this encounter
--- OUTSIDE RECORDS SUMMARY | 2021-12-13 12:47 | XMS_ITS | Encounter Summary ---
:1980 Author Organization [place] Address [address] [place] [address] Care Team Providers Name Role Phone None, Bfp Primary Care Provider Unavailable Encounter Details Date Type Department Care Team Description 01/06/2005 Results Only [facility] Edgar Alfredo MD [facility] Radiology Results [address] [place] [address] (Wo rk) Social History Tobacco Use Types Packs/Day Years Used Date Smoking Tobacco: Never Assessed Sex Assigned at Date Recorded Female 01/14/2020 10:57 AM EVENTS ASSISTANT documented as of this encounter Plan of Treatment Upcoming Encounters Date Type Specialty Care Team Description 12/20/2021 Office Visit Wound Care Luis Camara, [place] [address] [place], [place] [phone] (Wo rk) 01/21/2022 PRE VISIT Gastroenterology Landon Warren, *-*WANDAIN G RECORDS*-* MD Luis Fernando [address] [facility] [address] [place], [place] [phone] (Wo rk) 01/21/2022 Office Visit Gastroenterology Juanis Levi [address] [place] [phone] Luis Fernando Miles MD [facility] [address] [place] [address] documented as of this encounter Procedures Procedure Name Priority Date/Time Associated Diagnosis Comme nts HC X-RAY FOOT 2 Routine 01/06/2005 1:46 PM Result s for this VIEWS EVENTS ASSISTANT procedure are i n the results section. HC X-RAY ANKLE 2 Routine 01/06/2005 1:45 PM Resul ts for this VIEWS EVENTS ASSISTANT procedure are i n the results section. documented in this encounter Results X-RAY FOOT 2 VW (01/06/2005 1:46 PM EVENTS ASSISTANT) Anatomical Region Laterality Modality Other Specimen (Source) Anatomical Collection Method Collection Time Re ceived Time Location / / Volume Laterality 01/06/2005 1:46 PM EVENTS ASSISTANT Impressions 01/07/2005 4:29 PM EVENTS ASSISTANT 2 VIEW RIGHT FOOT AND 2 VIEW [...] X-RAY ANKLE 2 VW (01/06/2005 1:45 PM EVENTS ASSISTANT) Anatomical Region Laterality Modality Other Specimen (Source) Anatomical Collection Method Collection Time Re ceived Time Location / / Volume Laterality 01/06/2005 1:45 PM EVENTS ASSISTANT Impressions 01/07/2005 4:29 PM EVENTS ASSISTANT 2 VIEW RIGHT FOOT AND 2 VIEW [...] on filedocumented in this encounter Care Teams Perishable Fruit Inspector Relationship Specialty Start Date End Date None, Bfp PCP - General 03/02/99 04/12/12 documented as of this encounter
--- OUTSIDE RECORDS SUMMARY | 2021-12-13 12:47 | XMS_ITS | Encounter Summary ---
:1980 Author Organization [place] Address [address] [place] [address]. 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 documented as of this encounter Plan of Treatment Upcoming Encounters Date Type Specialty Care Team Description 12/20/2021 Office Visit Wound Care Luis Camara, [place] [address] [place], [place] [phone] (Wo rk) 01/21/2022 PRE VISIT Gastroenterology Landon Warren, *-*WANDAIN G RECORDS*-* MD Luis Fernando [address] [place] [address] [address] [place], [place] [address] (Wo rk) 01/21/2022 Office Visit Gastroenterology Juanis Levi [address] [place] [address] Luis Fernando Miles MD [address] [facility] [address] [place] [address] documented as of this encounter Procedures Procedure Name Priority Date/Time Associated Diagnosis Comme nts [facility] LT X-RAY KNEE 1 Routine 08/30/2006 3:28 PM Re sults for this OR 2 VIEW CDT procedure are i n the results section. [facility] RT X-RAY KNEE 1 Routine [...] filedocumented in this encounter Care Teams Manager Industrial Relationship Specialty Start Date End Date None, Bfp PCP - General 03/02/99 04/12/12 documented as of this encounter
--- OUTSIDE RECORDS SUMMARY | 2021-12-13 12:47 | XMS_ITS | Encounter Summary ---
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 Of note, the patient's regular MANAGER PACKAGE is a Dr. White. Medications - Medication: [...] done in the presence of a female numerical control nesting operator. The patient was sent for a US [...] MT: Name: STEPHANI MCCORMICK MRN: [id number] Account: [id number] : 1980 Visit Date: 04/11/2010 Document: [id number] NSED FUNERAL DIRECTOR documented in this encounter Plan of Treatment Upcoming Encounters Date Type Specialty Care Team Description 12/20/2021 Office Visit Wound Care Luis Camara DPM [address] [place] [address] (Wo rk) 01/21/2022 PRE VISIT Gastroenterology Landon Warren, *-*WANDAIN G RECORDS*-* MD Luis Fernando [address] [place] [phone] (Wo rk) 01/21/2022 Office Visit Gastroenterology Juanis Levi [address] [place] [phone] Luis Fernando Miles MD [address] [place] [address] documented as of this encounter Visit Diagnoses Not on filedocumented in this encounter Care Teams Chief Of Internal Medicine Relationship Specialty Start Date End Date None, Bfp PCP - General 03/02/99 04/12/12 documented as of this encounter
--- OUTSIDE RECORDS SUMMARY | 2021-12-13 12:47 | XMS_ITS | Encounter Summary ---
:1980 Author Organization [place] Address [address] [place] [address] Care Team Providers Name Role Phone None, Bfp Primary Care Provider Unavailable Reason for Visit Reason Comments RECHECK Encounter Details Date Type Department Care Team Description 12/05/2011 Office Visit [facility] Edgar Alfredo (H) Clinic Ashly Gauthier MD (Primary Dx) [address] [facility] [address] [place] [address] [address] [place] [phone] Social History Tobacco Use Types Packs/Day Years Used Date Smoking Tobacco: Every Day Cigarettes 0.5 10 Smokeless Tobacco: Never Alcohol Use Standard Drinks/Week Comments No 0 (1 standard drink = 0.6 oz pure alcoho l) Sex Assigned at Date Recorded Female 01/14/2020 10:57 AM VP INFORMATION TECHNOLOGY documented as of this encounter Last Filed [...] CDT documented in this encounter Progress Notes Egdar Alfredo MD - 12/05/2011 3:57 PM CDT [...] Script for suboxone was faxed to [facility] >> GIOVANNI HART [facility] Dec 05, 2011 1:45 PM Patient presents with: RECHECK Initial BP 144/58 Pulse 90 Ht 5' 5.5 (1.664 m) Wt 171 lb (77.565 kg) BMI 28.02 kg/m2 PdZ538% Estimated Body mass index is 28.02 kg/(m^2) as calculated from the following: Height as of this encounter: 5' 5.5(1.664 m). Weight as of this encounter: 171 lb(77.565 kg).. BP completed using cuff size: regular Giovanni Hart MA documented in this encounter Plan of Treatment Upcoming Encounters Date Type Specialty Care Team Description 12/20/2021 Office Visit Wound Care Luis Camara, [place] [address] [place] [address] (Wo rk) 01/21/2022 PRE VISIT Gastroenterology Landon Warren, *-*HEATHER G RECORDS*-* MD Luis Fernando [address] [facility] 2A [place], [place] [address] (Wo rk) 01/21/2022 Office Visit Gastroenterology Juanis Levi [address] [place] [address] Luis Fernando Miles MD [address] [place] [phone] documented as of this encounter Visit Diagnoses Diagnosis Opiate dependence (H) - Primary Opioid type dependence, unspecified documented in this encounter Care Teams Electronic Induction Hardener Relationship Specialty Start Date End Date None, Bfp PCP - General 03/02/99 04/12/12 documented as of this encounter
--- OUTSIDE RECORDS SUMMARY | 2021-12-13 12:47 | XMS_ITS | Encounter Summary ---
:1980 Author Organization [place] Address [address] [place] [address] Care Team Providers Name Role Phone None, Bfp Primary Care Provider Unavailable Encounter Details Date Type Department Care Team Description 04/11/2010 Results Only [facility] Breanna [facility], [facility] Results EMERGENCY PHYSIC JAZZ SWIFT [address] [place], [place] [address] (Wo rk) Social History Tobacco Use Types Packs/Day Years Used Date Smoking Tobacco: Never Assessed Sex Assigned at Date Recorded Female 01/14/2020 10:57 AM ERP CONSULTANT documented as of this encounter Plan of Treatment Upcoming Encounters Date Type Specialty Care Team Description 12/20/2021 Office Visit Wound Care Luis Camara, [place] [address] [place], [place] [phone] (Wo rk) 01/21/2022 PRE VISIT Gastroenterology Landon Warren, *-*WANDAIN G RECORDS*-* MD Luis Fernando [address] [facility] [place] [address] (Wo rk) 01/21/2022 Office Visit Gastroenterology Juanis Levi [address] [place] [phone] Luis Fernando Miles MD [address] [facility] [address] [place] [address] documented as of this encounter Procedures Procedure Name Priority Date/Time Associated Diagnosis Comme nts US OB > 14 WEEKS Routine 04/11/2010 12:40 AM Resu lts for this ERP CONSULTANT procedure are i n the results section. US ABDOMEN LIMITED Routine 04/11/2010 12:39 AM Re sults for this ERP CONSULTANT procedure are i n the results section. documented in this encounter Results US OB 14 + weeks single or first gestation (04/11/2010 12:40 AM ERP CONSULTANT) Anatomical Region Laterality Modality Abdomen/Pelvis Other Specimen (Source) Anatomical Collection Method Collection Time Re ceived Time Location / / Volume Laterality 04/11/2010 12:40 AM ERP CONSULTANT Impressions 04/11/2010 5:37 PM ERP CONSULTANT ULTRASOUND OBSTETRIC SECOND TO THIRD TRI MESTER [...] ORDERABLES US Abdomen Limited* (04/11/2010 12:39 AM ERP CONSULTANT) Anatomical Region Laterality Modality Abdomen/Pelvis Other Specimen (Source) Anatomical Collection Method Collection Time Re ceived Time Location / / Volume Laterality 04/11/2010 12:39 AM ERP CONSULTANT Impressions 04/11/2010 8:42 PM ERP CONSULTANT ULTRASOUND ABDOMEN LIMITED April 11, 2010 12:39:00 [...] on filedocumented in this encounter Care Teams Lunchroom Monitor Relationship Specialty Start Date End Date None, Bfp PCP - General 03/02/99 04/12/12 documented as of this encounter
--- OUTSIDE RECORDS SUMMARY | 2021-12-13 12:47 | XMS_ITS | Encounter Summary ---
:1980 Author Organization [place] Address [facility] [place] [address] Care Team Providers Name Role Phone None, Bfp Primary Care Provider Unavailable Encounter Details Date Type Department Care Team Description 05/17/2008 Historic Notes INTERFACED REPORT Interface, Transcript MD laurel Social History Tobacco Use Types Packs/Day Years Used Date Smoking Tobacco: Never Assessed Sex Assigned at Date Recorded Female 01/14/2020 10:57 AM PREFORM PLATE MAKER documented as of this encounter Progress Notes Interface, Legal Administrative Assistant - 05/06/2010 5:46 AM CDT Allergies ?? [...] Visit Wound Care Luis Camara DPM [address] [place], [place] [address] (Wo rk) 01/21/2022 PRE VISIT Gastroenterology Landon Warren, *-*HEATHER G RECORDS*-* MD Luis Fernando [address] [facility] 2A [place] [address] (Wo rk) 01/21/2022 Office Visit Gastroenterology Juanis Levi [address] [place] [phone] Luis Fernando Miles MD [address] [facility] [address] [place], [place] [address] documented as of this encounter Visit Diagnoses Not on filedocumented in this encounter Care Teams Rock Crushing Machine Operator Relationship Specialty Start Date End Date None, Bfp PCP - General 03/02/99 04/12/12 documented as of this encounter
--- OUTSIDE RECORDS SUMMARY | 2021-12-13 12:47 | XMS_ITS | Encounter Summary ---
:1980 Author Organization [place] Address [address] [facility] [place] [address] Care Team Providers Name Role Phone None, Bfp Primary Care Provider Unavailable Encounter Details Date Type Department Care Team Description 01/21/2012 Telephone [facility] Nithya Alfredo MD [place] [address] [place] [phone] [place] [phone] Social History Tobacco Use Types Packs/Day Years Used Date Smoking Tobacco: Every Day Cigarettes 0.5 10 Smokeless Tobacco: Never Alcohol Use Standard Drinks/Week Comments No 0 (1 standard drink = 0.6 oz pure alcoho l) Sex Assigned at Date Recorded Female 01/14/2020 10:57 AM HEALTH TECHNICAL WRITER documented as of this encounter Miscellaneous Notes Telephone Encounter - Sintia Colon - 01/22/2012 1:25 PM CST PA for subutex aprroved- #30month/one year. Sintia Colon RN TH TECHNICAL WRITER Telephone Encounter - Chapis Diaz - 01/21/2012 2:25 PM CST Faxed Chapis Diaz RN TH TECHNICAL WRITER Telephone Encounter - Chapis Diaz - 01/21/2012 1:47 PM CST [employer] faxed buprenorphin 8 mg needs prior auth Id [id number] Insurance health [employer] Flo/sales development representative--will fax us form we can write urgent on form and they will get to it immediately. Chapis Diaz RN TH TECHNICAL WRITER documented in this encounter Plan of Treatment Upcoming Encounters Date Type Specialty Care Team Description 12/20/2021 Office Visit Wound Care Luis Camara DPM [address] [place], [place] [address] (Wo rk) 01/21/2022 PRE VISIT Gastroenterology Landon Warren, *-*INCOMIN G RECORDS*-* MD Luis Fernando [address] [place] [phone] (Wo rk) 01/21/2022 Office Visit Gastroenterology Juanis Levi [address] [place] [phone] Luis Fernando Miles MD [address] [place] [phone] documented as of this encounter Visit Diagnoses Not on filedocumented in this encounter Care Teams Digital Campaign Manager Relationship Specialty Start Date End Date None, Bfp PCP - General 03/02/99 04/12/12 documented as of this encounter
--- OUTSIDE RECORDS SUMMARY | 2021-12-13 12:47 | XMS_ITS | Encounter Summary ---
:1980 Author Organization [place] Address [facility] [place] [address] Care Team Providers Name Role Phone None, Bfp Primary Care Provider Unavailable Edgar Alfredo MD Primary Care Provider Reason for Visit Reason Onset Date Comments Medication Compliance Issues 01/02/2012 Subutex Encounter Details Date Type Department Care Team Description 01/02/2012 Telephone [facility] Edgar Alfredo, [facility] ication Compliance Clinic Ashly VÁSQUEZ Issues (Subutex) [address] [facility] [address] [place] [address] [address] [place] [phone] (Wo rk) Social History Tobacco Use Types Packs/Day Years Used Date Smoking Tobacco: Every Day Cigarettes 0.5 10 Smokeless Tobacco: Never Alcohol Use Standard Drinks/Week Comments No 0 (1 standard drink = 0.6 oz pure alcoho l) Sex Assigned at Date Recorded Female 01/14/2020 10:57 AM SCHOOL BUS 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 Marycarmen Spence RN OL BUS MONITOR Telephone Encounter - Edgar Alfredo MD - 01/02/2012 4:49 PM CST Patient was on 12 mg Suboxone I am reducing dose to 10 mg for 2 weeks then 8 mg per day Since she is I have switched to Subutex OL BUS MONITOR Telephone Encounter - Alia Cunningham - 01/02/2012 4:45 PM CST Clinic Action Needed: Call pharmacy to verify medication and dosage. Reason for Call: To clarify med order for Subutex 8mg tab and 2mg tabs. Last prescribed Suboxone 8-2mg and was noted at last refill plans to decrease medication. Received order today for Subutex instead of Suboxone Patient Recommendations/Teaching:Message through [employer] and left message on phone. Teaching per [facility] Care guidelines. Routed to: Dr. Alfredo and nurse libby Cunningham RN [facility] [phone] OL BUS MONITOR documented in this encounter Plan of Treatment Upcoming Encounters Date Type Specialty Care Team Description 12/20/2021 Office Visit Wound Care Luis Camara DPM [address] [place] [address] (Wo rk) 01/21/2022 PRE VISIT Gastroenterology Landon Warren, *-*INCOMIN G RECORDS*-* MD Luis Fernando [address] [place] [phone] (Wo rk) 01/21/2022 Office Visit Gastroenterology Juanis Levi [address] [place] [phone] Luis Fernando Miles MD [address] [place] [phone] documented as of this encounter Visit Diagnoses Not on filedocumented in this encounter Care Teams Feather Cutting Machine Feeder Relationship Specialty Start Date End Date None, Bfp PCP - General 03/02/99 04/12/12 Edgar Alfredo MD PCP - General Family Practice 04/13/12 08/11/14 [address] [facility] 700 [place] [phone] documented as of this encounter
--- OUTSIDE RECORDS SUMMARY | 2021-12-13 12:47 | XMS_ITS | Encounter Summary ---
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 documented as of this encounter Plan of Treatment Upcoming Encounters Date Type Specialty Care Team Description 12/20/2021 Office Visit Wound Care Luis Camara DPM [address] [place], [place] [phone] (Wo rk) 01/21/2022 PRE VISIT Gastroenterology Landon Warren, *-*WANDAIN G RECORDS*-* MD Luis Fernando [address] [place] [phone] (Wo rk) 01/21/2022 Office Visit Gastroenterology Juanis Levi [address] [place] [phone] Luis Fernando Miles MD [address] [place] [phone] documented as of this encounter Visit Diagnoses Not on filedocumented in this encounter Care Teams Spiral Winding Machine Helper Relationship Specialty Start Date End Date None, Bfp PCP - General 03/02/99 04/12/12 documented as of this encounter
--- OUTSIDE RECORDS SUMMARY | 2021-12-13 12:47 | XMS_ITS | Encounter Summary ---
:1980 Author Organization [place] Address [address] [facility] [place] [address] Care Team Providers Name Role Phone None, Bfp Primary Care Provider Unavailable Reason for Visit Reason Onset Date Comments Call Back 12/26/2011 Encounter Details Date Type Department Care Team Description 12/26/2011 Telephone [facility] Nithya Alfredo MD Call Back [address] [place] [address] [phone] [place] [address] [phone] Social History Tobacco Use Types Packs/Day Years Used Date Smoking Tobacco: Every Day Cigarettes 0.5 10 Smokeless Tobacco: Never Alcohol Use Standard Drinks/Week Comments No 0 (1 standard drink = 0.6 oz pure alcoho l) Sex Assigned at Date Recorded Female 01/14/2020 10:57 AM SPECIALIST PHYSICIAN documented as of this encounter Miscellaneous Notes Telephone Encounter - Edgar Alfredo MD - 12/26/2011 10:10 AM CST Will switch to Subutex at lower dose next week IALIST PHYSICIAN Telephone Encounter - Tigist Fraga - 12/26/2011 8:17 AM CST Incoming call from pt's partner Woody, pt also came on the phone. Pt gave call back # [phone]. Woody initially asked to speak to Dr Alfredo, stated it was a life threatening situation re pt's currentpregnancy, pt came on phone and asked to make an appt with Dr Alfredo, first available is 01-01, pt states she will be out of pills by then, pt wanting call back from Dr Alfredo. IALIST PHYSICIAN documented in this encounter Plan of Treatment Upcoming Encounters Date Type Specialty Care Team Description 12/20/2021 Office Visit Wound Care Luis Camara, DPM [address] [place] [address] (Wo rk) 01/21/2022 PRE VISIT Gastroenterology Landon Warren, *-*INCOMIN G RECORDS*-* MD Luis Fernando [address] [place] [address] (Wo rk) 01/21/2022 Office Visit Gastroenterology Juanis Levi [address] [place] [address] Luis Fernando Miles MD [address] [place] [phone] documented as of this encounter Visit Diagnoses Not on filedocumented in this encounter Care Teams Textile Stylist Relationship Specialty Start Date End Date None, Bfp PCP - General 03/02/99 04/12/12 documented as of this encounter
--- OUTSIDE RECORDS SUMMARY | 2021-12-13 12:47 | XMS_ITS | Encounter Summary ---
:1980 Author Organization [place] Address [facility] [place] [address] Care Team Providers Name Role Phone None, Bfp Primary Care Provider Unavailable Reason for Visit Reason Comments RECHECK please ask about current PAP date Recheck Medication Encounter Details Date Type Department Care Team Description 11/07/2011 Office Visit [facility] Edgar Alfredo de pendence (H) (Primary Dx); Clinic Ashly Gauthier MD Moderate major depression (H) [address] [facility] [address] [facility] [address] [place] [phone] Social History Tobacco Use Types Packs/Day Years Used Date Smoking Tobacco: Every Day Cigarettes 0.5 10 Smokeless Tobacco: Never Alcohol Use Standard Drinks/Week Comments No 0 (1 standard drink = 0.6 oz pure alcoho l) Sex Assigned at Date Recorded Female 01/14/2020 10:57 AM ADVERTISING ANALYST documented as of this encounter Last [...] Script for suboxone was faxed to the [facility] >> ROSALINE VAZQUEZ [facility] Nov 07, 2011 11:42 AM Patient [...] completed using cuff size: regular Rosaline Vazquez AIR CONDITIONING SERVICE TECHNICIAN documented in this encounter Plan of Treatment Upcoming Encounters Date Type Specialty Care Team Description 12/20/2021 Office Visit Wound Care Luis Camara, CALVIN [address] [place] [address] (Wo rk) 01/21/2022 PRE VISIT Gastroenterology [place] Marshall Kelvin, *-*WANDAIN G RECORDS*-* MD Luis Fernando 6 [facility] [address] [place], [place] [address] (Wo rk) 01/21/2022 Office Visit Gastroenterology Juanis Levi [address] [place] [address] Luis Fernando Miles MD 6 [facility] [address] [place], [place] [phone] documented as of this encounter Visit Diagnoses Diagnosis Opiate dependence (H) - Primary Opioid type dependence, unspecified Moderate major depression (H) Major depressive disorder, single episod e, moderate documented in this encounter Care Teams Service Attendant Relationship Specialty Start Date End Date None, Bfp PCP - General 03/02/99 04/12/12 documented as of this encounter
--- OUTSIDE RECORDS SUMMARY | 2021-12-13 12:47 | XMS_ITS | Encounter Summary ---
:1980 Author Organization [place] Address [address] [facility] [place] [address] Care Team Providers Name Role Phone None, Bfp Primary Care Provider Unavailable Reason for Visit Reason Onset Date Comments Refill Request 01/21/2012 Encounter Details Date Type Department Care Team Description 01/21/2012 Refill [facility] Nithya Alfredo MD Refill Request [address] [place] [address] [address] [address] [place] [address] [phone] Social History Tobacco Use Types Packs/Day Years Used Date Smoking Tobacco: Every Day Cigarettes 0.5 10 Smokeless Tobacco: Never Alcohol Use Standard Drinks/Week Comments No 0 (1 standard drink = 0.6 oz pure alcoho l) Sex Assigned at Date Recorded Female 01/14/2020 10:57 AM WHEEL SETTER documented as of this encounter Miscellaneous Notes Telephone Encounter - Sintia Colon - 01/21/2012 1:53 PM CST Please see telephone encounter from 01/21/2012. PA is being submitted to [facility], as [facility] has denied PA its not the patient's insurance. Sintia Colon RN L SETTER Telephone Encounter - Sintia Colon - 01/21/2012 10:07 AM CST PA is being requesting for subutex. Patient was on suboxone, is now so needs to be on subutex. PA faxed. Sintia Colon, RN L SETTER documented in this encounter Plan of Treatment Upcoming Encounters Date Type Specialty Care Team Description 12/20/2021 Office Visit Wound Care Luis Camara, CALVIN [address] [place] [address] (Wo rk) 01/21/2022 PRE VISIT Gastroenterology Landon Warren, *-*HEATHER G RECORDS*-* MD Luis Fernando [address] [place] [address] (Wo rk) 01/21/2022 Office Visit Gastroenterology Juanis Levi [address] [place] [address] Luis Fernando Miles MD [address] [place] [address] documented as of this encounter Visit Diagnoses Not on filedocumented in this encounter Care Teams Small Animal Veterinarian Relationship Specialty Start Date End Date None, Bfp PCP - General 03/02/99 04/12/12 documented as of this encounter
--- OUTSIDE RECORDS SUMMARY | 2021-12-13 12:47 | XMS_ITS | Encounter Summary ---
:1980 Author Organization [place] Address [address] [facility] [place] [address] Care Team Providers Name Role Phone None, Bfp Primary Care Provider Unavailable Encounter Details Date Type Department Care Team Description 11/30/2011 Abstract [facility] Edgar Alfredo FV Historical Records: Clinic Lynn Notes [address] [facility] [address] [facility] [address] [place] [address] (Wo rk) Social History Tobacco Use Types Packs/Day Years Used Date Smoking Tobacco: Every Day Cigarettes 0.5 10 Smokeless Tobacco: Never Alcohol Use Standard Drinks/Week Comments No 0 (1 standard drink = 0.6 oz pure alcoho l) Sex Assigned at Date Recorded Female 01/14/2020 10:57 AM ELECTRICAL UNIT REBUILDER documented as of this encounter Plan of Treatment Upcoming Encounters Date Type Specialty Care Team Description 12/20/2021 Office Visit Wound Care Luis Camara, [place] [address] [place] [address] (Wo rk) 01/21/2022 PRE VISIT Gastroenterology Landon Warren, *-*HEATHER Barriga RECORDS*-* MD Luis Fernando [address] [facility] [address] [address] [place] [address] (Wo rk) 01/21/2022 Office Visit Gastroenterology Juanis Levi [address] [facility] [place] [address] Luis Fernando Miles MD [address] [facility] [place], [place] [address] documented as of this encounter Procedures Procedure [...] on filedocumented in this encounter Care Teams Credit Verifier Relationship Specialty Start Date End Date None, Bfp PCP - General 03/02/99 04/12/12 documented as of this encounter
--- OUTSIDE RECORDS SUMMARY | 2021-12-13 12:47 | XMS_ITS | Encounter Summary ---
:1980 Author Organization [place] Address [address] [place] [address]. 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 Please contact pt at [phone] documented in this encounter Plan of Treatment Upcoming Encounters Date Type Specialty Care Team Description 12/20/2021 Office Visit Wound Care Luis Camara DPM [address] [place], [place] [address] (Wo rk) 01/21/2022 PRE VISIT Gastroenterology Landon Warren, *-*WANDAIN G RECORDS*-* MD Luis Fernando [address] [place] [phone] (Wo rk) 01/21/2022 Office Visit Gastroenterology Juanis Levi [address] [place] [address] Luis Fernando Miles MD [address] [place] [phone] documented as of this encounter Visit Diagnoses Not on filedocumented in this encounter Care Teams Donor Relations Officer Relationship Specialty Start Date End Date None, Bfp PCP - General 03/02/99 04/12/12 documented as of this encounter
--- OUTSIDE RECORDS SUMMARY | 2021-12-13 12:48 | XMS_ITS | Encounter Summary ---
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 [id number]_ SANTO DELONG MD MT: Document: [id number] [place], [place] Name: STEPHANI MCCORMICK EMERGENCY ROOM ENCOUNTER Page 2 of 2 LCN: JOSEPH DSC: 09/29/2003 [place], [place] Name: MR#: : Admit Date: STEPHANI MCCORMICK -66 1980 09/29/2003 Doctor: SANTO DELONG MD EMERGENCY ROOM ENCOUNTER Page 1 of 2 documented in this encounter Plan of Treatment Upcoming Encounters Date Type Specialty Care Team Description 12/20/2021 Office Visit Wound Care Luis Camara, [place] [address] [place] [address] (Wo rk) 01/21/2022 PRE VISIT Gastroenterology Landon Warren, *-*HEATHER G RECORDS*-* MD Luis Fernando [address] [place] [address] (Wo rk) 01/21/2022 Office Visit Gastroenterology Juanis Levi [address] [place] [address] Luis Fernando Miles MD [address] [place] [phone] documented as of this encounter Visit Diagnoses Not on filedocumented in this encounter Care Teams Turn Out Worker Relationship Specialty Start Date End Date None, Bfp PCP - General 03/02/99 04/12/12 documented as of this encounter
--- OUTSIDE RECORDS SUMMARY | 2021-12-13 12:49 | XMS_ITS | Encounter Summary ---
:1980 [facility] Address [address] [place] [address] Care Team Providers Name Role Phone Unavailable Primary Care Provider Unavailable Reason for Visit Procedure/Equipment (Routine) - Incomplete Specialty Diagnoses / Procedures Referred By Contact Refer red To Contact Diagnoses Chronic pain of left knee Jamie Sr MBBS Procedures XR Knee Lt 3 Views [address] [place], [place] [address] Referral ID Status Reason Start Date Expiration Date Visits V isits Requested Authorized [id number] Incomplete 08/26/2020 11/25/2021 1 1 Encounter Details Date Type Department Care Team Description 08/26/2020 Ancillary Procedure [facility] Canceled (Patient [id number] Request) [place] [address] Social History Tobacco Use Types Packs/Day Years Used Date Smoking Tobacco: Every Day Smokeless Tobacco: Never Sex Assigned at Date Recorded Not on file documented as of this encounter Plan of Treatment Not on filedocumented as of this encounter Visit Diagnoses Not on filedocumented in this encounter
--- OUTSIDE RECORDS SUMMARY | 2021-12-13 12:49 | XMS_ITS | Encounter Summary ---
:1980 Author Organization [facility] Address [address] [place] [address] Care Team Providers Name Role Phone Unavailable Primary Care Provider Unavailable Reason for Visit Reason Comments Knee Pain or Injury ANKLE PAIN Encounter Details Date Type Department Care Team Description 08/26/2020 Hospital Encounter [place] [address] Aishwarya Marie MD Chronic pain of left knee; Urgent Care [address] [place] Acute right ankle pain [address] [place] [address] [phone] Social History Tobacco Use Types Packs/Day Years [...]
--- OUTSIDE RECORDS SUMMARY | 2021-12-13 12:49 | XMS_ITS | Encounter Summary ---
:1980 Author [facility] Address [address] [place] [address] Care Team Providers Name Role Phone Unavailable Primary Care Provider Unavailable Reason for Visit Procedure/Equipment (Routine) - Incomplete Specialty Diagnoses / Procedures Referred By Contact Refer red To Contact Diagnoses Acute right ankle pain Jamie Sr MBBS Procedures XR Ankle Rt 3 Views [address] [place], [place] [address] Referral ID Status Reason Start Date Expiration Date Visits V isits Requested Authorized [id number] Incomplete 08/26/2020 11/25/2021 1 1 Encounter Details Date Type Department Care Team Description 08/26/2020 Ancillary Procedure [facility] Canceled (Patient [id number] Request) [place] [address] Social History Tobacco Use Types Packs/Day Years Used Date Smoking Tobacco: Every Day Smokeless Tobacco: Never Sex Assigned at Date Recorded Not on file documented as of this encounter Plan of Treatment Not on filedocumented as of this encounter Visit Diagnoses Not on filedocumented in this encounter
--- OUTSIDE RECORDS SUMMARY | 2021-12-13 12:49 | XMS_ITS | Clinical Summary ---
:1980 Author Organization [facility] [place] [address] Care Team Providers Name Role Phone Luis Fernando Magana MD Primary Care Provider [phone] Allergies No known active allergies Medications [...] for Dr. Sayda HEREDIA signed for [facility]: Signed 10/25/14 REFERRING PHYSICIAN: Angelique Brewer [facility] [phone] Breanna Coleman [facility] [phone] SPECIALISTS: [facility] ([facility]?) WAD IMPREGNATOR: Yesenia Zaman, [facility] CARE COORDINATION: Erika Galvan RN/Camryn Hernandez RN [phone] CONSULTS: Presented at Teresa/Gabriel Rounds on 11/03 NICU Consult/Tour: 11/10 at 12:30 [facility] Tour: [phone] Cardiac Surgery Consult: will not meet p renatal/Dummer PROCEDURES: CHECKLIST FOR SCHEDULING PRO CEDURES: Procedure: Induction Hospital: [facility] Unit: L&D Date & Time of procedure: 12/06/14 at 12 00 Savage Score if induction: 6 Pertinent information: Gestational age on procedure date: 39w0d MD doing procedure: Hospitalist Date scheduled: 11/30/2014 Scheduling MD & RN: Lona Hernandez NP and Kae Guadarrama RN Hospitalist Delivery-Brianna Rodriguez notif ied: [phone]) Yes H&P and Plan in chart: Not Applicable MPP notified via ALTHIAian inbox? Not Applicable On [facility] calendar? Not Applicable Amnio needed: No Amnio scheduled: Not Applicable Does NICU need notification: Yes NICU notification done: Yes (NICU ) PPTL permit signed: Not Applicable Patient notified of procedure date: Yes, Discussed: 11/30/14 Written admission instructions given to patient: Yes Destiny Herron NICU [phone] Peds Surgery Durga/Angelika [phone] Dr.Nagib Lozano Neurology [facility] Dr[facility]Aliabadi Lozano Urology [phone] Heart Surgery [place] [phone] MEDS: Subutex Effexor Levothyroxine 125 mcg Wellbutrin [...] Await spontaneous labor, per Dr. Rikki Hernandez, [facility] Insufficient care 04/30/2009 Hepatitis C [...] 9 ral ng na oz) Delivery Location: [facility] Comments: wt gain 25#. uncomplicat ed. dilated slowly. AROM. Uncomplicated delivery. 04/08/2005 Term 41w0d F Vag Living Complications: None Delivery Location: [place] 05/30/2006 Term 40w0d M Vag Living Delivery Location: [facility] 04/30/2009 Term 37w0d F Vag Epidural Living Delivery Location: [place] 10/01/2010 Term 40w0d M Vag Epidural N Demis e Delivery Location: [facility] 07/20/2012 Term 40w0d M Epidural, General Living Delivery Location: [place] 12/04/2014 Term 38w5d 2.49 kg (5 lb 7.8 oz) M L iving 1 3 Complications: Uterine rupture during la bor Delivery Location: [facility] Last Filed Vital Signs [...] Phone Addre ss Type Group [facility] [id number] 2021-Present [address] [place] [address] Advance Directives Latest Code Status on File Code Status Date Activated Date Inactivated Comments Full Code 12/04/2014 6:39 AM 12/07/2014 7:40 PM Full Code 12/03/2014 8:45 PM 12/04/2014 6:39 AM Full Code 12/03/2014 4:25 PM 12/03/2014 8:45 PM Full Code 12/03/2014 3:24 PM 12/03/2014 4:25 PM Full Code 04/30/2009 10:06 PM 05/02/2009 3:13 PM Care Teams Call Center Associate Relationship Specialty Start Date End Date Luis Fernando Magana MD PCP - General Family Practice 06/24/13 [address] [place] [address]
== END 2021-11-10 06:16 | disposition home or self-care (01) ==
LOC: AMB 12-13 12:09
PROVIDERS: Visit Provider Family Medicine
DX: K92.0 Hematemesis (principal); K92.2 Gastrointestinal hemorrhage, unspecified
CPT/HCPCS: A0425; A0428

== ENCOUNTER 2021-11-28 13:35 | Outpatient (CLI) | payer MEDICAID, SELFPAY ==
--- OUTSIDE RECORDS SUMMARY | 2021-11-28 13:38 | XMS_ITS | Encounter Summary ---
:1980 Author Organization [facility] Address [address] [place] [address] Care Team Providers Name Role Phone Stephani Pina INSURANCE COLLECTOR HIDE SALTER Unavailable [phone] Juanis Levi Primary Care Provider Elsa Yeh RN Unavailable Unavailable Rogelio Treadwell MD Unavailable [phone] Luis Camara DPM Unavailable [phone] Reason for Visit Reason Comments Surgical Followup 2 week follow up -- DOS 08/15 Encounter Details Date Type Department Care Team Description 08/28/2021 Office Visit [facility] Sintia Lange, S/P fl ap graft Plastic and PA-C (Primary Dx) Reconstructive Surgery 909 [facility] 4TH FLOOR 9[address] [place], [place] 4th [facility] [address] [place], [place] [phone] (Work) [phone] Social History Tobacco Use Types Packs/Day Years Used Date Smoking Tobacco: Former Cigarettes 0.3 10 Smokeless Tobacco: Never Comments: 5-8 cigarettes a day (hasn't s moked since in transitional care 07/23/21) Alcohol Use Standard Drinks/Week Comments Not Currently 0 (1 standard drink = 0.6 oz pure alcoho l) sober since 05/08 Sex Assigned at Date Recorded Female 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 COVID-19 Exposure Response Date Recorded In the [...] CDT Plastic Surgery Outpatient Visit ID: Stephani King is a 40 year old [...] Encounters Date Type Specialty Care Team Description 11/29/2021 Office Visit Wound Care Luis Camara DPM [address] [place], [place] [address]645 (Wo rk) 01/21/2022 Office Visit Gastroenterology Juanis Levi [address] [place] [address] Luis Fernando Miles MD [address] [address] documented as of this encounter Visit Diagnoses Diagnosis S/P flap graft - Primary Other postprocedural status documented in this encounter Additional Health Concerns Infection Onset Date Last Indicated Resolved Time MRSAComment: Added from external infection. 11/07/2014 05/2 02/2021 Assessment Noted Time PHQ-9 Depression Total Score: 2 12/15/2020 1:07 PM CDT documented as of this encounter Care Teams Parking Regulation Enforcement Officer Relationship Specialty Start Date End Date Juanis Levi PCP - General Addiction Medicine 06/29/21 [address] [place] [phone] Stephani Pina, Assigned PCP 02/25/21 INSURANCE COLLECTOR HIDE SALTER [address] [place] [address] Elsa Yeh, Registered Nurse Infectious Diseases 07/25/21 RN Rogelio Treadwell Assigned Musculoskeletal 08/04/21 MD August Provider 9 [place] [address] Luis Camara MD Podiatry 08/16/21 CALVIN Burnett [address] [place] [address] documented as of this encounter
--- OUTSIDE RECORDS SUMMARY | 2021-11-28 13:38 | XMS_ITS | Encounter Summary ---
:1980 Author Organization [place] Address [address] [place] [address] Care Team Providers Name Role Phone Stephani Pina DESKTOP ADMINISTRATOR JEWEL GRINDER Unavailable [phone] Juanis Levi Primary Care Provider Elsa Yeh RN Unavailable Unavailable Rogelio Treadwell MD Unavailable [phone] Luis Camara DPM Unavailable [phone] Sintia Lange PA-C Unavailable Reason for Visit Reason Onset Date Comments Appointment 11/15/2021 Encounter Details Date Type Department Care Team Description 11/15/2021 Telephone [facility] Brittnee Cyr LPN Appointment (/) [place] [phone] Social History Tobacco Use Types Packs/Day Years Used Date Smoking Tobacco: Every Day Cigarettes 0.3 10 Smokeless Tobacco: Never Comments: 5-8 cigarettes a day (hasn't s moked since in transitional care 07/23/21) Alcohol Use Standard Drinks/Week Comments Not Currently 0 (1 standard drink = 0.6 oz pure alcoho l) sober since 05/08 Sex Assigned at Date Recorded Female 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 documented as of this encounter Miscellaneous Notes Telephone Encounter - Brittnee Cyr LPN - 11/15/2021 12:03 PM CDT Spoke with patient confirming appointment with Dr. Camara today at 12:30. Patient stated they just left hospital an hour ago and would need to r/s for the following week. Patient is scheduled with Dr. Camara at 1:00. Patient is aware of date, time, and location and had no further at this time. Patient was asked to call or send a Fotolog message if they had any concerns regarding this appointment as they have no showed 3x now. documented in this encounter Plan of Treatment Upcoming Encounters Date Type Specialty Care Team Description 11/29/2021 Office Visit Wound Care Luis Camara DPM 9[address] [place], [place] [address] (Wo rk) 01/21/2022 Office Visit Gastroenterology Juanis Levi 24[address] [place] [address] Luis Fernando Miles MD 516 [facility] 2A [place], [place] [address] documented as of this encounter Visit Diagnoses Not on filedocumented in this encounter Additional Health Concerns Infection Onset Date Last Indicated Resolved Time MRSAComment: Added from external infection. 11/07/201406/18 Assessment Noted Time PHQ-9 Depression Total Score: 8 10/18/2021 3:15 PM CDT documented as of this encounter Care Teams Recreational Therapist Relationship Specialty Start Date End Date Juanis Levi PCP - General Addiction Medicine 06/29/[address] [place] [address] Stephani Pina, Assigned PCP 02/25/21 DESKTOP ADMINISTRATOR JEWEL GRINDER [address] [facility] [address] [place] [address] Elsa Yeh, Registered Nurse Infectious Diseases 07/25/21 RN Rogeloi Treadwell Assigned Musculoskeletal 08/04/21 MD August Provider [address] [place] [address] Luis Camara MD Podiatry 08/16/21 [place] Burnett [address] [place] [address] Sintia Lange, Assigned Surgical 09/08/21 PA-C Provider [address] [place] [address] documented as of this encounter
--- OUTSIDE RECORDS SUMMARY | 2021-11-28 13:38 | XMS_ITS | Encounter Summary ---
:1980 Author Organization [facility] Address [address] [place] [address] Care Team Providers Name Role Phone Stephani Pina ORDER TRACER RN CLINICAL REVIEW Unavailable [phone] Juanis Levi Primary Care Provider Elsa Yeh RN Unavailable Unavailable Rogelio Treadwell MD Unavailable [phone] Luis Camara DPM Unavailable [phone] Camryn Christina MD Unavailable Sintia Lange PA-C Unavailable Luis Fernando Miles MD Unavailable [phone] Reason for Visit Reason Onset Date Comments Erroneous encounter-disregard 08/27/2021 Encounter Details Date Type Department Care Team Description 08/27/2021 Telephone [facility] Unknown Erroneous Dermatology Clinic encounter -disregard [address] 3rd Floor [place] [phone] Social History Tobacco Use Types Packs/Day Years Used Date Smoking Tobacco: Former Cigarettes 0.3 10 Smokeless Tobacco: Never Comments: 5-8 cigarettes a day (hasn't s moked since in transitional care 07/23/21) Alcohol Use Standard Drinks/Week Comments Not Currently 0 (1 standard drink = 0.6 oz pure alcoho l) sober since 05/08 Sex Assigned at Date Recorded Female 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 2A [place], [place] [address] documented as of this encounter Visit Diagnoses Not on filedocumented in this encounter Additional Health Concerns Infection Onset Date Last Indicated Resolved Time MRSAComment: Added from external infection. 11/07/2014 05/2 02/2021 Assessment Noted Time PHQ-9 Depression Total Score: 2 12/15/2020 1:07 PM CDT documented as of this encounter Care Teams Mental Telepathist Relationship Specialty Start Date End Date Juanis Levi PCP - General Addiction Medicine 06/29/21 [address] [place] [address] Stephani Pina, Assigned PCP 02/25/21 ORDER TRACER RN CLINICAL REVIEW [address] [place], [place] [phone] Elsa Yeh, Registered Nurse Infectious Diseases 07/25/21 Rogelio Wilson Assigned Musculoskeletal 08/04/21 MD August Provider 9[address] [place] [address] Luis Camara MD Podiatry 08/16/21 [place] Burnett [address] [place] [address] Camryn Christina Assigned Surgical 09/01/21 09/07/21 MD Lexie Provider 420 [facility] 195 [place] [address] Sintia Lange, Assigned Surgical 09/08/21 PAMcC Provider 909 [facility] 4TH [place] [address] Landon Warren MD Gastroenterology 11/21/21 MD Luis Fernando [address] [facility] [address] [place] [address] documented as of this encounter
--- OUTSIDE RECORDS SUMMARY | 2021-11-28 13:38 | XMS_ITS | Encounter Summary ---
:1980 Author Organization [place] Address [address] [place] [address] Care Team Providers Name Role Phone Stephani Pina BIOTECHNICIAN GRISTMILL OPERATOR Unavailable [phone] Juanis Levi Primary Care Provider Elsa Yeh RN Unavailable Unavailable Rogelio Treadwell MD Unavailable [phone] Luis Camara DPM Unavailable [phone] Encounter Details Date Type Department Care Team Description 08/29/2021 Telephone [facility] Brittnee Scott, GENARO [address] [place], [place] [phone] Social History Tobacco Use Types Packs/Day Years Used Date Smoking Tobacco: Former Cigarettes 0.3 10 Smokeless Tobacco: Never Comments: 5-8 cigarettes a day (hasn't s moked since in transitional care 07/23/21) Alcohol Use Standard Drinks/Week Comments Not Currently 0 (1 standard drink = 0.6 oz pure alcoho l) sober since 05/08 Sex Assigned at Date Recorded Female 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 Gas Treater called Vijaya Styles VM to patient that home care agency was [facility] and contact info for home care agency. Gas Treater also left personal office phone number, in case of follow up questions. Gas Treater did not receive any follow up calls. 08/27: Per report from TCU, ANGELIKA received a call from patient re: home care on 08/27. Gas Treater left Vm with home care agency to verify if patient has been seen by home care. 08/29: Received call return call from [facility]. Per Violeta at [facility] care agency visiting nurse and beverage manager have made multiple attempts to see patient. Patient has refused to make appointment for visits despite attempts. Reached out to mother to assist in scheduling as well, but this was also unsuccessful. Brittnee Scott Patient Pediatric Anesthesiologist Acute Rehabilitation Unit/ Transitional Care Unit. documented in this encounter Plan of Treatment Upcoming Encounters Date Type Specialty Care Team Description 11/29/2021 Office Visit Wound Care Luis Camara DPM 909 [place] [address] (Wo rk) 01/21/2022 Office Visit Gastroenterology Juanis Levi 24[address] [place] [phone] Luis Fernando Miles MD [address] [address] documented as of this encounter Visit Diagnoses Not on filedocumented in this encounter Additional Health Concerns Infection Onset Date Last Indicated Resolved Time MRSAComment: Added from external infection. 11/07/201406/18 Assessment Noted Time PHQ-9 Depression Total Score: 2 12/15/2020 1:07 PM CDT documented as of this encounter Care Teams Cmv Driver Relationship Specialty Start Date End Date Juanis Levi PCP - General Addiction Medicine 06/29/21 2450 [facility] [place] [phone] Stephani Pina, Assigned PCP 02/25/21 BIOTECHNICIAN GRISTMILL OPERATOR [address] [place] [address] Elsa Yeh, Registered Nurse Infectious Diseases 07/25/21 RN Rogelio Treadwell Assigned Musculoskeletal 08/04/21 MD August Provider 9 [place] [address] Luis Camara MD Podiatry 08/16/21 [place] Burnett [address] [place] [address] documented as of this encounter
--- OUTSIDE RECORDS SUMMARY | 2021-11-28 13:38 | XMS_ITS | Encounter Summary ---
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 documented as of this encounter Plan of Treatment Upcoming Encounters Date Type Specialty Care Team Description 11/29/2021 Office Visit Wound Care Luis Camara, DPM 9[address] [place] [address] (Wo rk) 01/21/2022 Office Visit Gastroenterology Juanis Levi 2450 [place] [address] Luis Fernando Miles MD 6 [facility] [address] [place], [place] [address] documented as of this encounter Visit Diagnoses Not on filedocumented in this encounter Additional Health Concerns Infection Onset Date Last Indicated Resolved Time MRSAComment: Added from external infection. 11/07/201406/18 Assessment Noted Time PHQ-9 Depression Total Score: 2 12/15/2020 1:07 PM CDT documented as of this encounter Care Teams Hand Wood Sander Relationship Specialty Start Date End Date Juanis Levi PCP - General Addiction Medicine 06/29/[address] [place] [phone] Stephani Pina, Assigned PCP 02/25/21 FIELD SUPPORT REP OUTSIDE SALESMAN [address] [place], [place] [address] Elsa Yeh, Registered Nurse Infectious Diseases 07/25/21 RN Rogelio Treadwell Assigned Musculoskeletal 08/04/21 MD August Provider [address] [place], [place] [address] Luis Camara MD Podiatry 08/16/21 [place] Burnett [address] [place], [place] [address] documented as of this encounter
--- OUTSIDE RECORDS SUMMARY | 2021-11-28 13:38 | XMS_ITS | Encounter Summary ---
:1980 Author Organization [place] Address [address] [place] [address] Care Team Providers Name Role Phone Stephani Pina FINANCIAL MARKET DEALER CEMENT MASON APPRENTICE Unavailable [phone] Juanis Levi Primary Care Provider Elsa Yeh RN Unavailable Unavailable Rogelio Treadwell MD Unavailable [phone] Luis Camara DPM Unavailable [phone] Sintia Lange PA-C Unavailable Encounter Details Date Type Department Care Team Description 11/19/2021 Travel Social History Tobacco Use Types Packs/Day Years Used Date Smoking Tobacco: Every Day Cigarettes 0.3 10 Smokeless Tobacco: Never Comments: 5-8 cigarettes a day (hasn't s moked since in transitional care 07/23/21) Alcohol Use Standard Drinks/Week Comments Not Currently 0 (1 standard drink = 0.6 oz pure alcoho l) sober since 05/08 Sex Assigned at Date Recorded Female 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 documented as of this encounter Plan of Treatment Upcoming Encounters Date Type Specialty Care Team Description 11/29/2021 Office Visit Wound Care Luis Camara DPM 909 [place], [place] [address] (Wo rk) 01/21/2022 Office Visit Gastroenterology Juanis Levi 2450 [place] [phone] Luis Fernando Miles MD [address] [address] documented as of this encounter Visit Diagnoses Not on filedocumented in this encounter Additional Health Concerns Infection Onset Date Last Indicated Resolved Time MRSAComment: Added from external infection. 11/07/201406/18 Assessment Noted Time PHQ-9 Depression Total Score: 3 11/19/2021 11:45 AM CD T documented as of this encounter Care Teams Digital Editor Relationship Specialty Start Date End Date Juanis Levi PCP - General Addiction Medicine 06/29/21 24[address] [place] [address] Stephani Pina, Assigned PCP 02/25/21 FINANCIAL MARKET DEALER CEMENT MASON APPRENTICE [address] [place], [place] [address] Elsa Yeh, Registered Nurse Infectious Diseases 07/25/21 Rogelio Wilson Assigned Musculoskeletal 08/04/21 MD August Provider [address] [place] [address] Luis Camara MD Podiatry 08/16/21 [place] Burnett [address] [place] [address] Sintia Lange, Assigned Surgical 09/08/21 PA-C Provider [address] [place] [address] documented as of this encounter
--- OUTSIDE RECORDS SUMMARY | 2021-11-28 13:38 | XMS_ITS | Encounter Summary ---
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 documented as of this encounter Plan of Treatment Upcoming Encounters Date Type Specialty Care Team Description 11/29/2021 Office Visit Wound Care Luis Camara DPM [address] [place], [place] [address] (Wo rk) 01/21/2022 Office Visit Gastroenterology Juanis Levi [address] [place] [phone] Luis Fernando Miles MD [address] [address] documented as of this encounter Visit Diagnoses Not on filedocumented in this encounter Additional Health Concerns Infection Onset Date Last Indicated Resolved Time MRSAComment: Added from external infection. 11/07/201406/18 Assessment Noted Time PHQ-9 Depression Total Score: 8 10/18/2021 3:15 PM CDT documented as of this encounter Care Teams Director Clinical Pharmacology Relationship Specialty Start Date End Date Juanis Levi PCP - General Addiction Medicine 06/29/21 [address] [place] [address] Stephani Pina, Assigned PCP 02/25/21 SOLAR SITE ASSESSMENT SPECIALIST DIRECTOR DIETETICS DEPARTMENT [address] [facility] [address] [place], [place] [address] Elsa Yeh, Registered Nurse Infectious Diseases 07/25/21 Rogelio Wilson Assigned Musculoskeletal 08/04/21 MD August Provider [address] [place] [address]655 Luis Camara MD Podiatry 08/16/21 CALVIN Burnett [address] [place] [phone] Sintia Lange, Assigned Surgical 09/08/21 PA-C Provider [address] [place] [address]145 documented as of this encounter
--- OUTSIDE RECORDS SUMMARY | 2021-11-28 13:38 | XMS_ITS | Clinical Summary ---
:1980 Author Organization [place] Address [address] [place] [address] Care Team Providers Name Role Phone Stephani Pina FARZANA MATTRESS SPRING ENCASER Unavailable [phone] Juanis Levi Primary Care Provider Elsa Yeh RN Unavailable Unavailable Rogelio Treadwell MD Unavailable [phone] Luis Camara DPM Unavailable [phone] Sintia Lange PA-C Unavailable Luis Fernando Miles MD Unavailable [phone] Allergies No known active allergies Medications [...] daily gelIndications: Acute pain of left knee miconazole Apply topically 71 g 0 Act paula (MICATIN) 2 % 2 times daily 2 external powderIndications: Fungal rash of trunk nicotine polacrilex Place 1 each (4 240 each 11 Active (NICORETTE) 4 MG mg) inside 2 gumIndications: cheek every Tobacco use hour as needed disorder for smoking cessation levothyroxine Take 1 tablet 90 tablet 0 Ac tive (SYNTHROID/LEVOTHRO (125 mcg) by 2 ID) 125 MCG mouth every tabletIndications: morning Hypothyroidism apixaban Take 5 mg by 0 Active ANTICOAGULANT mouth 2 times (ELIQUIS) 5 MG daily tablet ondansetron (ZOFRAN Take 1 tablet 15 tablet 0 Active ODT) 4 MG ODT (4 mg) by mouth 2 tabIndications: every 8 hours Nausea as needed venlafaxine Take 1 capsule 30 capsule 1 Ac tive (EFFEXOR XR) 150 MG (150 mg) by 2 24 hr mouth daily capsuleIndications: Generalized Anxiety Disorder Multiple Vitamin Take 1 tablet 0 Active (DAILY-JO ANN by mouth daily 2 MULTIVITAMIN) TABSIndications: Alcohol use disorder, severe, dependence (H) sucralfate Take 1 g by 0 11/30/19 Active (CARAFATE) 1 mouth 2 22 GM/10ML suspensionIndicatio ns: Alcoholic gastritis with hemorrhage, unspecified chronicity pantoprazole 0 Active (PROTONIX) 40 MG EC 2 tabletIndications: Alcoholic gastritis with hemorrhage, unspecified chronicity thiamine 25 mg every day 0 Activ e TABSIndications: 2 Alcohol use disorder, severe, dependence (H) buprenorphine Place 1 tablet 90 tablet 0 A ctive (SUBUTEX) 8 MG SUBL (8 mg) under 2 sublingual the tongue 3 tabletIndications: times daily Opioid Dependence cloNIDine Take 1 tablet 60 tablet 0 Active (CATAPRES) 0.1 MG (0.1 mg) by 2 tabletIndications: mouth 2 times Anxiety daily as needed (anxiety) hydrOXYzine Take 1 tablet 90 tablet 0 Acti ve (ATARAX) 25 MG (25 mg) by 2 tabletIndications: mouth every 8 Anxiety, Pruritus hours as needed for anxiety acamprosate Take 2 tablets 180 tablet 1 Ac tive (CAMPRAL) 333 MG EC (666 mg) by 2 tabletIndications: mouth 3 times Alcohol use daily disorder, severe, dependence (H) divalproex sodium Take 1 tablet 0 Active extended-release (500 mg) by 2 (DEPAKOTE ER) 500 mouth daily MG 24 hr tabletIndications: Alcohol use disorder, severe, dependence (H) folic acid Take 1 tablet 90 tablet 1 Activ e (FOLVITE) 1 MG (1 mg) by mouth 2 tabletIndications: daily Alcohol use disorder, severe, dependence (H) naloxone (NARCAN) 4 Lula 1 spray 0.2 mL 11 Discontinued MG/0.1ML nasal (4 mg) into one 2 22 sprayIndications: nostril Opioid use alternating disorder, severe, nostrils once in sustained as needed for remission, on opioid reversal maintenance therapy every 2-3 (H) minutes until assistance arrives ibuprofen Take 1 tablet 30 tablet 0 11/20/19 Discon tinued (ADVIL/MOTRIN) 200 (200 mg) by 2 22 MG mouth every 6 tabletIndications: hours as needed Tooth pain for moderate pain (Dental pain) gabapentin Take 1 capsule 90 capsule 1 11/20/19 Dis continued (NEURONTIN) 300 MG (300 mg) by 2 22 capsuleIndications: mouth 3 times Anxiety, Alcohol daily use disorder, severe, dependence (H) cloNIDine Take 1 tablet 21 tablet 0 11/20/19 Discon tinued (CATAPRES) 0.1 MG (0.1 mg) by 2 22 (Reorder) tabletIndications: mouth every 8 Alcohol withdrawal hours for 7 syndrome without days complication (H) divalproex sodium Take 1 tablet 7 tablet 0 11/20/19 Discontinued extended-release (500 mg) by 2 22 (DEPAKOTE ER) 500 mouth daily MG 24 hr tabletIndications: Alcohol withdrawal syndrome without complication (H) hydrOXYzine Take 1 tablet 90 tablet 0 11/20/19 Disc ontinued (ATARAX) 25 MG (25 mg) by 2 22 (Reo rder) tabletIndications: mouth every 8 Anxiety, Pruritus hours as needed for anxiety ondansetron (ZOFRAN Take 1 tablet 15 tablet 0 Discontinued ODT) 4 MG ODT (4 mg) by mouth 2 22 tabIndications: every 8 hours Alcohol withdrawal as needed for syndrome without nausea complication (H) buprenorphine Place 1 tablet 30 tablet 0 11/20/19 D iscontinued (SUBUTEX) 8 MG SUBL (8 mg) under 2 22 (Reorder) sublingual the tongue 3 tabletIndications: times daily Opioid Dependence Active Problems Problem Noted Date Non-healing surgical wound, subsequent encounter 07/31 Overview: Added automatically from request for rohan adams [id number] Physical deconditioning 07/23/2021 Osteomyelitis of right ankle, [...] rounds with Dr Alma Leyva. Referral to special shopper placed. Family history of SIDS (sudden syndrome) 08/02/2016 History of anomaly in prior [...] Encounters Date Type Specialty Care Team Description 11/21/2021 Travel 11/19/2021 Travel 11/15/2021 Telephone Wound Care Ger, Priyank (/) CAMRON Beaulieu 10/18/2021 Travel 08/30/2021 Documentation Only Plastic Surgery Camryn Christina Ord ers (DME ORDER) MD Lexei 08/29/2021 Telephone Care Management Brittnee Scott RN 08/28/2021 Office Visit Plastic Surgery Sintia Lange, S/P flap graft (Primary PA-C Dx) 08/28/2021 Travel from Last 3 Months Immunizations Name Administration [...] Day Cigarettes 0.3 10 Smokeless Tobacco: Never Tobacco Cessation: Ready to Quit: No; Co unseling Given: Yes Comments: 5-8 cigarettes a day (hasn't s moked since in transitional care 07/23/21) Alcohol Use Standard Drinks/Week Comments Not Currently 0 (1 standard drink = 0.6 oz pure alcoho l) sober since 05/08 Sex Assigned at Date Recorded Female 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 Last Filed Vital Signs Vital Sign Reading Time Taken Comments Blood Pressure 124/79 11/19/2021 11:47 AM CDT Pulse 77 11/19/2021 11:47 AM CDT Temperature 37.1 ??C (98.8 ??F) [...] Visit Wound Care Luis Camara DPM [address] [place], [place] [address] (Wo rk) 01/21/2022 Office Visit Gastroenterology Juanis Levi [address] [place] [phone] Luis Fernando Miles MD [address] [address] Health Maintenance Due Date Last Done Comments ADVANCE CARE PLANNING 1980 ANNUAL REVIEW OF HM ORDERS 1980 HEPATITIS B IMMUNIZATION (1 1980 of 3 - 3-dose series) YEARLY PREVENTIVE VISIT 1980 Pneumococcal Vaccine: 1986 Pediatrics (0 to 5 Years) and At-Risk Patients (6 to 64 Years) (1 - PCV) PAP 05/18/2017 05/18/2012 COVID-19 Vaccine (2 - 11/08/2020 10/11/2020 Moderna series) NICOTINE/TOBACCO CESSATION 12/26/2020 12/27/2019, 9 COUNSELING Q 1 YR INFLUENZA VACCINE (#1) 2021 12/26/2020, 12/08/2016 PHQ-9 05/20/2022 11/19/2021, 10/18/2021, 12/15/2020, Additional history exists DTAP/TDAP/TD IMMUNIZATION 12/11/2026 12/11/2016, [...] Procedure Name Priority Date/Time Associated Comments Diagnosis ETHYL GLUCURONIDE Routine 11/19/2021 1:39 PM Alcohol use Resu lts for this SCREEN WITH REFLEX TO CDT disorder, severe, p rocedure are in CONFIRMATION, URINE dependence (H) the re sults section. from Last 3 Months Results Ethyl Glucuronide Screen with Reflex to Confirmation, Urine (11/19/2021 1:39 PM CDT) [facility] Method Time Signature Ethyl Negative Cutoff 500 11/20/2021 [facility] Glucuronide ng/mL 9:46 PM CDT Urine Comment: INTERPRETIVE INFORMATION: Ethyl Glucuron louise Screen with Reflex to Confirmation, Urine Ethyl glucuronide is a direct metabolite of ethanol and can be detected up to 80 hours in urine afte r ethanol ingestion. ??The cutoff for positive by immunoassay is set at 500 ng/mL. ??A positive result will b e confirmed by liquid chromatography tandem mass spectr ometry (LC-MS/MS). Performed By: [facility] [address] [place] [address] Golf Tournament Consultant: Willian Swain MD, PhD Specimen Anatomical Collection Method Collection Time Receive d Time (Source) Location / / Volume Laterality Urine URINE SPECIMEN Non-blood 11/19/2021 1:39 PM 022 2:03 OBTAINED BY CLEAN Collection / CDT PM CDT CATCH PROCEDURE / Unknown Unknown Juanis Levi LAB - URINE ORDERABLES Performing Organization Address City/State/ZIP Code Phon e Number [facility] [place], [place] [phone] [address] [facility] [address] from Last 3 Months Additional Health Concerns Infection Onset Date Last Indicated MRSAComment: Added from external infection. 11/07/2014 07/07/2021 Insurance Payer Benefit Plan / Subscriber ID Effective Dates Phone Addre ss Type Group [facility] [id number] 2021-Present [phone] [address] [place] [address] [facility] [address] (Home) [place], [place] [phone] [address] (Work) Advance Directives For more information, please contact: [phone] Latest Code Status on File Code Status Date Activated Date Inactivated Comments Full Code 07/23/2021 4:16 PM 08/22/2021 6:19 PM All basic and advanced life-sustaining interventions ar e performed as appropriate Question Answer Comments Code status determined by: Unable to discuss and no AD/POLST on file; continue PREVIOUSLY ORDERED code status Code Status History Code Status Date Activated Date Inactivated Comments Full Code 07/06/2021 2:02 PM 07/23/2021 3:56 PM All basic and advanced life-sustaining interventions ar e performed as appropriate Question Answer Comments Code status determined by: Discussion with patient/ legal de cision maker Full Code 01/12/2020 2:39 AM 01/14/2020 8:53 PM All basic and advanced life-sustaining interventions are performed as denisa ropriate Question Answer Comments Code status determined by: Unable to determine; FULL CODE un til documents or legal decision maker available Full Code 04/01/2019 10:46 PM 04/04/2019 1:46 PM Question Answer Comments Code status determined by: Discussion with patient/legal dec ision maker Full Code 07/04/2018 10:44 PM 07/08/2018 3:47 PM Question Answer Comments Code status determined by: Discussion with patient/legal dec ision maker Care Teams Jet Wiper Relationship Specialty Start Date End Date Juanis Levi PCP - General Addiction Medicine 06/29/[address] [place] [phone] Stephani Pina, Assigned PCP 02/25/21 FREIGHT CLAIM INVESTIGATOR MATTRESS SPRING ENCASER [address] [place] [address] Elsa Yeh, Registered Nurse Infectious Diseases 07/25/21 RN Rogelio Treadwell Assigned Musculoskeletal 08/04/21 MD August Provider [address] [place] [address] Luis Camara MD Podiatry 08/16/21 PALOMO BurnettM [address] [place] [address] Sintia Lange, Assigned Surgical 09/08/21 PA-C Provider 909 [facility] 4TH FLOOR [place], [place] [address] Landon Warren MD Gastroenterology 11/21/21 MD Luis Fernando [address] [place] [address] [address] [place] [address]
--- OUTSIDE RECORDS SUMMARY | 2021-11-28 13:38 | XMS_ITS | Encounter Summary ---
:1980 Author Organization [place] Address [address] [place] [address] Care Team Providers Name Role Phone Stephani Pina BOX SPINNER RUSSIAN LANGUAGE PROFESSOR Unavailable [phone] Juanis Levi Primary Care Provider Elsa Yeh RN Unavailable Unavailable Rogelio Treadwell MD Unavailable [phone] Luis Camara DPM Unavailable [phone] Sintia Lange PA-C Unavailable Luis Fernando Miles MD Unavailable [phone] Encounter Details Date Type Department Care Team Description 11/21/2021 Travel Social History Tobacco Use Types Packs/Day Years Used Date Smoking Tobacco: Every Day Cigarettes 0.3 10 Smokeless Tobacco: Never Comments: 5-8 cigarettes a day (hasn't s moked since in transitional care 07/23/21) Alcohol Use Standard Drinks/Week Comments Not Currently 0 (1 standard drink = 0.6 oz pure alcoho l) sober since 05/08 Sex Assigned at Date Recorded Female 01/14/2020 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 documented as of this encounter Plan of Treatment Upcoming Encounters Date Type Specialty Care Team Description 11/29/2021 Office Visit Wound Care Luis Camara DPM [address] [place], [place] [address] (Wo rk) 01/21/2022 Office Visit Gastroenterology Juanis Levi [address] [place] [address] Luis Fernando Miels MD 6 [facility] [address] [place], [place] [address] documented as of this encounter Visit Diagnoses Not on filedocumented in this encounter Additional Health Concerns Infection Onset Date Last Indicated Resolved Time MRSAComment: Added from external infection. 11/07/201406/18 Assessment Noted Time PHQ-9 Depression Total Score: 3 11/19/2021 11:45 AM CD T documented as of this encounter Care Teams Leather Staker Relationship Specialty Start Date End Date Juanis Levi PCP - General Addiction Medicine 06/29/[address] [place] [address] Stephani Pina, Assigned PCP 02/25/21 BOX SPINNER RUSSIAN LANGUAGE PROFESSOR [address] [place] [address] Elsa Yeh, Registered Nurse Infectious Diseases 07/25/21 Rogelio Wilson Assigned Musculoskeletal 08/04/21 MD August Provider [address] [place], [place] [address] Luis Camara MD Podiatry 08/16/21 CALVIN Burnett [address] [place], [place] [address] Sintia Lange, Assigned Surgical 09/08/21 PA-C Provider 909 [facility] [address] [place] [address] Landon Warren MD Gastroenterology 11/21/21 MD Luis Fernando 6 [facility] [address] [place], [place] [address] documented as of this encounter
--- OUTSIDE RECORDS SUMMARY | 2021-11-28 13:38 | XMS_ITS | Encounter Summary ---
:1980 Author Organization [facility] Address [address] [place] [address] Care Team Providers Name Role Phone Stephani Pina TECTONOPHYSICIST TANK HOUSE OPERATOR Unavailable [phone] Juanis Levi Primary Care Provider Elsa Yeh RN Unavailable Unavailable Rogelio Treadwell MD Unavailable [phone] Luis Camara DPM Unavailable [phone] Reason for Visit Reason Comments Orders DME ORDER Encounter Details Date Type Department Care Team Description 08/30/2021 Documentation Only [facility] Camryn Christina (DME ORDER) Plastic and MD [facility] [address] [place] [address] 195 [address] [place], [place] 4th Floor [address] [place], [place] [phone] [address] (Work) [phone] Social History Tobacco Use Types Packs/Day Years Used Date Smoking Tobacco: Former Cigarettes 0.3 10 Smokeless Tobacco: Never Comments: 5-8 cigarettes a day (hasn't s moked since in transitional care 07/23/21) Alcohol Use Standard Drinks/Week Comments Not Currently 0 (1 standard drink = 0.6 oz pure alcoho l) sober since 05/08 Sex Assigned at Date Recorded Female 01/14/2020 10:57 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 documented as of this encounter Plan of Treatment Upcoming Encounters Date Type Specialty Care Team Description 11/29/2021 Office Visit Wound Care Luis Camara DPM [address] [place] [address] (Wo rk) 01/21/2022 Office Visit Gastroenterology Juanis Levi [address] [place] [address] Luis Fernando Miles MD [address] [address] documented as of this encounter Visit Diagnoses Diagnosis Other complications of procedures, not e lsewhere classified, subsequent encounter - Primary documented in this encounter Additional Health Concerns Infection Onset Date Last Indicated Resolved Time MRSAComment: Added from external infection. 11/07/201406/18 Assessment Noted Time PHQ-9 Depression Total Score: 2 12/15/2020 1:07 PM CDT documented as of this encounter Care Teams Clay Dry Press Helper Relationship Specialty Start Date End Date Juanis Levi PCP - General Addiction Medicine 06/29/[address] [place] [address] Stephani Pina, Assigned PCP 02/25/21 TECTONOPHYSICIST TANK HOUSE OPERATOR [address] [place], [place] [address] Elsa Yeh, Registered Nurse Infectious Diseases 07/25/21 RN Rogelio Treadwell Assigned Musculoskeletal 08/04/21 MD August Provider [address] [place] [address] Luis Camara MD Podiatry 08/16/21 CALVIN Burnett [address] [place] [address] documented as of this encounter
--- OUTSIDE RECORDS SUMMARY | 2021-11-28 13:38 | XMS_ITS | Encounter Summary ---
:1980 Author Organization [facility] Address [address] [place] [address] Care Team Providers Name Role Phone Stephani Pina SNOWBOARDING INSTRUCTOR CAR LOADER Unavailable [phone] Juanis Levi Primary Care Provider Elsa Yeh RN Unavailable Unavailable Rogelio Treadwell MD Unavailable [phone] Luis Camara DPM Unavailable [phone] Encounter Details Date Type Department Care Team [...] at Date Recorded Female 01/14/2020 10:57 AM BUGGYMAN COVID-19 Exposure Response Date Recorded In the last 10 days, have you been in contact with No / Unsu re 08/28/2021 9:08 AM CDT someone who was confirmed or suspected to have Coronavirus/COVID-19? documented as of this encounter Plan of Treatment Upcoming Encounters Date Type Specialty Care Team Description 11/29/2021 Office Visit Wound Care Luis Camara, DPM [address] [place] [address] (Wo rk) 01/21/2022 Office Visit Gastroenterology Juanis Levi [address] [place] [address] Luis Fernando Miles MD 6 [facility] [address] [place], [place] [address] documented as of this encounter Visit Diagnoses Not on filedocumented in this encounter Additional Health Concerns Infection Onset Date Last Indicated Resolved Time MRSAComment: Added from external infection. 11/07/201406/18 Assessment Noted Time PHQ-9 Depression Total Score: 2 12/15/2020 1:07 PM CDT documented as of this encounter Care Teams Logistical Engineer Relationship Specialty Start Date End Date Juanis Levi PCP - General Addiction Medicine 06/29/[address] [place] [phone] Stephani Pina, Assigned PCP 02/25/21 SNOWBOARDING INSTRUCTOR CAR LOADER [address] [place], [place] [address] Elsa Yeh, Registered Nurse Infectious Diseases 07/25/21 RN Rogelio Treadwell Assigned Musculoskeletal 08/04/21 MD August Provider [address] [place], [place] [address] Luis Camara MD Podiatry 08/16/21 CALVIN Burnett [address] [place], [place] [address] documented as of this encounter
--- OUTSIDE RECORDS SUMMARY | 2021-11-28 13:38 | XMS_ITS | Encounter Summary ---
:1980 Author Organization [place] Address [address] [place] [address] Care Team Providers Name Role Phone Stephani Pina CATALYST RECOVERY OPERATOR PRESENTATION TEAM MEMBER Unavailable [phone] Juanis Levi Primary Care Provider Elsa Yeh RN Unavailable Unavailable Rogelio Treadwell MD Unavailable [phone] Luis Camara DPM Unavailable [phone] Camryn Christina MD Unavailable Sintia Lange PA-C Unavailable Luis Fernando Miles MD Unavailable [phone] Reason for Visit Reason Onset Date Comments Call Back 08/27/2021 Encounter Details Date Type Department Care Team Description 08/27/2021 Telephone [facility] Plastic and Camryn Christina Call Back Re[facility] [address] 195 9 [place] [id number] Floor [place] [address] [phone] Social History Tobacco Use Types Packs/Day Years Used Date Smoking Tobacco: Former Cigarettes 0.3 10 Smokeless Tobacco: Never Comments: 5-8 cigarettes a day (hasn't s moked since in transitional care 6/6/22) Alcohol Use Standard Drinks/Week Comments Not Currently 0 (1 standard drink = 0.6 oz pure alcoho l) sober since 05/08 Sex Assigned at Date Recorded Female 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 For urgent medical issues that cannot wait, call the clinic at [phone] Mon- Fri 8:-4:30. If you need help over the weekend you can call the hospital to speak with the on-call resident. Thatnumber is [phone]. Telephone Encounter - Joseph Farmer - 08/27/2021 3:53 PM CDT M [facility] Call Center Phone Message May a detailed [...] Visit Wound Care Luis Camara DPM [address] [place], [place] [address]85 (Wo rk) 01/21/2022 Office Visit Gastroenterology Juanis Levi 2450 [place] [phone] Luis Fernando Miles MD [address] [id number] documented as of this encounter Visit Diagnoses Not on filedocumented in this encounter Additional Health Concerns Infection Onset Date Last Indicated Resolved Time MRSAComment: Added from external infection. 11/07/2014 0502/2021 Assessment Noted Time PHQ-9 Depression Total Score: 2 12/15/2020 1:07 PM CDT documented as of this encounter Care Teams Asian Studies Program Chair Relationship Specialty Start Date End Date Juanis Levi PCP - General Addiction Medicine 06/29/[address] [place] [address] Stephani Pina, Assigned PCP 02/25/21 CATALYST RECOVERY OPERATOR PRESENTATION TEAM MEMBER [address] [place], [place] [address] Elsa Yeh, Registered Nurse Infectious Diseases 07/25/21 RN Rogelio Treadwell Assigned Musculoskeletal 08/04/21 MD August Provider [address] [place] [address] Luis Camara MD Podiatry 08/16/21 CALVIN Burnett [address] [place] [address] Camryn Christina Assigned Surgical 09/01/21 09/07/21 MD Lexie Provider 420 [facility] 195 [place] [address] Sintia Lange, Assigned Surgical 09/08/21 PA-C Provider 909 [facility] 4TH FLOOR [place], [place] [address] Landon Warren MD Gastroenterology 11/21/21 MD Luis Fernando 516 [facility] [address] [place] [address] documented as of this encounter
--- OUTSIDE RECORDS SUMMARY | 2021-11-28 13:39 | XMS_ITS | Encounter Summary ---
:1980 Author Organization [place] Address [address] [place] [address] Care Team Providers Name Role Phone Stephani Pina PRESS TENDER STAR SIGNAL CUT IN WORKER Unavailable [phone] Juanis Levi Primary Care Provider Elsa Yeh RN Unavailable Unavailable Rogelio Treadwell MD Unavailable [phone] Luis Camara DPM Unavailable [phone] Reason for Visit Reason Comments TESSY Styles, is being seen today fo r a 1 week post-op DOS 08/15 Encounter Details Date Type Department Care Team Description 08/22/[address] [facility] Camryn Christina surgical Plastic and MD Lexie wound, subsequent Reconstructive Surgery [address] en counter (Primary [facility] [place] [facility] 195 Dx) 909 [facility] SE [place], [place] 4th Floor [address] [place], [place] [phone] [address] (Work) [phone] Social History Tobacco Use Types Packs/Day Years Used Date Smoking Tobacco: Former Cigarettes 0.3 10 Smokeless Tobacco: Never Comments: 5-8 cigarettes a day (hasn't s moked since in transitional care 07/23/21) Alcohol Use Standard Drinks/Week Comments Not Currently 0 (1 standard drink = 0.6 oz pure alcoho l) sober since 05/08 Sex Assigned at Date Recorded Female 01/14/2020 10:57 AM ATTENDANT CHILD ACTIVITY COVID-19 Exposure Response Date Recorded In the [...] Pina. documented in this encounter Nursing Notes CyrBrittnee motta LPN - 08/22/2021 10:15 AM CDT Chief Complaint Patient presents with ??? TESSY Stephani, is being seen today for a [...] Visit Wound Care Luis Camara DPM 909 [place], [place] [phone] (Wo rk) 01/21/2022 Office Visit Gastroenterology Juanis Levi 2450 [place] [address] Luis Fernando Miles MD 516 [facility] 2A [place], [place] [address] documented as of this encounter Visit Diagnoses Diagnosis Non-healing surgical wound, subsequent e ncounter - Primary documented in this encounter Additional Health Concerns Infection Onset Date Last Indicated Resolved Time MRSAComment: Added from external infection. 11/07/201406/18 Assessment Noted Time PHQ-9 Depression Total Score: 2 12/15/2020 1:07 PM CDT documented as of this encounter Care Teams Disability Rater Relationship Specialty Start Date End Date Juanis Levi PCP - General Addiction Medicine 06/29/21 2450 [place] [address] Stephani Pina, Assigned PCP 02/25/21 PRESS TENDER STAR SIGNAL CUT IN WORKER [address] [place] [address] Elsa Yeh, Registered Nurse Infectious Diseases 07/25/21 RN Rogelio Treadwell Assigned Musculoskeletal 08/04/21 MD August Provider 9 [place] [address] Luis Camara MD Podiatry 08/16/21 CALVIN Burnett 9[address] [place] [address] documented as of this encounter
--- OUTSIDE RECORDS SUMMARY | 2021-11-28 13:39 | XMS_ITS | Encounter Summary ---
:1980 Author Organization [place] Address [address] [place] [address] Care Team Providers Name Role Phone Stephani Pina ROTARY DRILL RIG OPERATOR GOLF CLUB WEIGHTER Unavailable [phone] Juanis Levi Primary Care Provider Elsa Yeh RN Unavailable Unavailable Rogelio Treadwell MD Unavailable [phone] Luis Camara DPM Unavailable [phone] Encounter Details Date Type Department Care Team [...] at Date Recorded Female 01/14/2020 10:57 AM BILINGUAL INSIDE SALES 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 COVID-19 Exposure Response Date Recorded In the last 10 days, have you been in contact with No / Unsu re 08/22/2021 9:42 AM CDT someone who was confirmed or suspected to have Coronavirus/COVID-19? documented as of this encounter Plan of Treatment Upcoming Encounters Date Type Specialty Care Team Description 11/29/2021 Office Visit Wound Care Luis Camara, DPM 909 [place] [address] (Wo rk) 01/21/2022 Office Visit Gastroenterology Juanis Levi 2450 [place] [address] Luis Fernando Miles MD 6 [facility] [address] [place], [place] [address] documented as of this encounter Visit Diagnoses Not on filedocumented in this encounter Additional Health Concerns Infection Onset Date Last Indicated Resolved Time MRSAComment: Added from external infection. 11/07/201406/18 Assessment Noted Time PHQ-9 Depression Total Score: 2 12/15/2020 1:07 PM CDT documented as of this encounter Care Teams Tree Thinner Relationship Specialty Start Date End Date Juanis Levi PCP - General Addiction Medicine 06/29/[address] [place] [phone] Stephani Pina, Assigned PCP 02/25/21 ROTARY DRILL RIG OPERATOR GOLF CLUB WEIGHTER [address] [place], [place] [address] Elsa Yeh, Registered Nurse Infectious Diseases 07/25/21 RN Rogelio Treadwell Assigned Musculoskeletal 08/04/21 MD August Provider [address] [place], [place] [address] Luis Camara MD Podiatry 08/16/21 CALVIN Burnett [address] [place], [place] [address]385 documented as of this encounter
--- OUTSIDE RECORDS SUMMARY | 2021-11-28 13:40 | XMS_ITS | Encounter Summary ---
:1980 Author Organization [place] Address 24[address] [place] [address] Care Team Providers Name Role Phone Stephani Pina SOFTWARE SUPPORT ANALYST RADIO ANTENNA INSTALLER Unavailable [phone] Juanis Levi Primary Care Provider Elsa Yeh RN Unavailable Unavailable Rogelio Treadwell MD Unavailable [phone] Luis Camara DPM Unavailable [phone] Camryn Christina MD Unavailable Sintia Lange PA-C Unavailable Luis Fernando Miles MD Unavailable [phone] Encounter Details Date Type Department Care Team Description 08/15/2021 Hospital Encounter [facility] Liz swan, Transitional Care Unit MD Eros [place] 2450 [facility] [address] [place] [phone] (Wo rk) Social History Tobacco Use Types Packs/Day Years Used Date Smoking Tobacco: Every Day Cigarettes 0.3 10 Smokeless Tobacco: Never Comments: 5-8 cigarettes a day (hasn't s moked since in transitional care 07/23/21) Alcohol Use Standard Drinks/Week Comments Not Currently 0 (1 standard drink = 0.6 oz pure alcoho l) sober since 05/08 Sex Assigned at Date Recorded Female 01/14/2020 10:57 AM EMBEDDED HARDWARE ENGINEER COVID-19 Exposure Response Date Recorded In the last 10 days, have you been in contact Unable to asse ss 11/21/2021 10:22 AM CDT with someone who was confirmed or suspected to have Coronavirus/COVID-19? documented as of this encounter Plan of Treatment Upcoming Encounters Date Type Specialty Care Team Description 11/29/2021 Office Visit Wound Care Luis Camara DPM 909 [place] [address] (Wo rk) 01/21/2022 Office Visit Gastroenterology Juanis Levi 24[address] [place] [address] Luis Fernando Miles MD [address] [place] [id number] documented as of this encounter Visit Diagnoses Not on filedocumented in this encounter Additional Health Concerns Infection Onset Date Last Indicated Resolved Time MRSAComment: Added from external infection. 11/07/201406/18 Assessment Noted Time PHQ-9 Depression Total Score: 2 12/15/2020 1:07 PM CDT documented as of this encounter Care Teams Oncology Social Worker Relationship Specialty Start Date End Date Juanis Levi PCP - General Addiction Medicine 06/29/21 [address] [place] [address] Stephani Pina, Assigned PCP 02/25/21 SOFTWARE SUPPORT ANALYST RADIO ANTENNA INSTALLER [address] [place] [address] Elsa Yeh, Registered Nurse Infectious Diseases 07/25/21 Rogelio Wilson Assigned Musculoskeletal 08/04/21 MD August Provider 909 [place], [place] [address] Luis Camara MD Podiatry 08/16/21 CALVIN Burnett 9[address] [place], [place] [address] Camryn Christina Assigned Surgical 09/01/21 09/07/21 MD Lexie Provider 420 [facility] 195 [place], [place] [address] Sintia Lange, Assigned Surgical 09/08/21 PA-C Provider 909 [facility] 4TH [place] [address] Landon Warren MD Gastroenterology 11/21/21 MD Luis Fernando 516 [facility] [address] [place] [address] documented as of this encounter
--- OUTSIDE RECORDS SUMMARY | 2021-11-28 13:40 | XMS_ITS | Encounter Summary ---
:1980 Author Organization [place] Address [facility]0 [place] [address] Care Team Providers Name Role Phone Stephani Pina LINT CLEANER PHP PROGRAMMER Unavailable [phone] Juanis Levi Primary Care Provider Elsa Yeh RN Unavailable Unavailable Encounter Details Date Type Department Care Team Description 07/31/2021 Orders Only M [facility] Camryn Christina surgical Plastic and MD Lexie wound, subsequent Reconstructive Surgery [address] en counter (Primary [facility] [place] [facility] 195 Dx) 909 [place], [place] 4th Floor [address] [place], [place] [phone] [address] (Work) [phone] Social History Tobacco Use Types Packs/Day Years Used Date Smoking Tobacco: Every Day Cigarettes 0.3 10 Smokeless Tobacco: Never Comments: 5-8 cigarettes a day Alcohol Use Standard Drinks/Week Comments Not Currently 0 (1 standard drink = 0.6 oz pure alcoho l) sober since 08/2020 Sex Assigned at Date Recorded Female 01/14/2020 10:57 AM CORRECTIONAL COUNSELOR documented as of this encounter Plan of Treatment Upcoming Encounters Date Type Specialty Care Team Description 11/29/2021 Office Visit Wound Care Luis Camara, CALVIN 909 [place] [address] (Wo rk) 01/21/2022 Office Visit Gastroenterology Juanis Levi 2450 [place] [phone] Luis Fernando Miles MD 6 [facility] [place], [place] [address] documented as of this encounter Visit Diagnoses Diagnosis Non-healing surgical wound, subsequent e ncounter - Primary documented in this encounter Additional Health Concerns Infection Onset Date Last Indicated Resolved Time MRSAComment: Added from external infection. 11/07/201406/18 Assessment Noted Time PHQ-9 Depression Total Score: 2 12/15/2020 1:07 PM CDT documented as of this encounter Care Teams Health Records Technology Teacher Relationship Specialty Start Date End Date Juanis Levi PCP - General Addiction Medicine 06/29/21 2450 [place] [address] Stephani Pina APRN PHP PROGRAMMER Assigned PCP 02/25/[address] [place], [place] [address] Elsa Yeh, RN Registered Nurse Infectious Diseases 07/25/21 documented as of this encounter
--- OUTSIDE RECORDS SUMMARY | 2021-11-28 13:40 | XMS_ITS | Encounter Summary ---
:1980 Author Organization [place] Address [address] [place] [address] Care Team Providers Name Role Phone Stephani Pina ROD MILL TENDER WASTEWATER ANALYST Unavailable [phone] Juanis Levi Primary Care Provider Elsa Yeh RN Unavailable Unavailable Reason for Referral Diagnostic Imaging XR (Routine) - Pending Review Specialty Diagnoses / Procedures Referred By Contact Refer red To Contact Diagnoses Ankle pain Rogelio Treadwell MD Procedures XR Ankle Right G/E 3 Views 9 [place], [place] [address] Referral ID Status Reason Start Date Expiration Date Visits V isits Requested Authorized [id number] Pending 07/31/2021 07/31/2022 1 1 Review Encounter Details Date Type Department Care Team Description 07/31/2021 Orders Only [facility] Rogelio Treadwell pa in (Primary Orthopedic Clinic MD [place] Dx) [address] 909 [place], [place] 4th Floor [address] [place], [place] [phone] (Wo rk) [address] [phone] Social History Tobacco Use Types Packs/Day Years Used Date Smoking Tobacco: Every Day Cigarettes 0.3 10 Smokeless Tobacco: Never Comments: 5-8 cigarettes a day Alcohol Use Standard Drinks/Week Comments Not Currently 0 (1 standard drink = 0.6 oz pure alcoho l) sober since 08/2020 Sex Assigned at Date Recorded Female 01/14/2020 10:57 AM SLIP INJECTOR AND APPLICATOR documented as of this encounter Plan of Treatment Upcoming Encounters Date Type Specialty Care Team Description 11/29/2021 Office Visit Wound Care Luis Camara DPM [address] [facility] [place] [place] [address] (Wo rk) 01/21/2022 Office Visit Gastroenterology Juanis Levi 2450 [place] [address] Luis Fernando Miles MD 516 [facility] [address] [place] [address] documented as of this encounter Results XR [...] documented as of this encounter Care Teams Industrial Illuminating Engineer Relationship Specialty Start Date End Date Juanis Levi PCP - General Addiction Medicine 06/29/21 2450 [place] [phone] Stephani Pina APRN WASTEWATER ANALYST Assigned PCP 02/25/[address] [place] [address] Elsa Yeh, RN Registered Nurse Infectious Diseases 07/25/21 documented as of this encounter
--- OUTSIDE RECORDS SUMMARY | 2021-11-28 13:40 | XMS_ITS | Encounter Summary ---
:1980 Author Organization [place] Address 2450 [facility] [place] [address] Care Team Providers Name Role Phone Stephani Pina FARZANA BLINDSTITCH HEMMER Unavailable [phone] Juanis Levi Primary Care Provider Elsa Yeh RN Unavailable Unavailable Encounter Details Date Type Department Care Team Description 07/28/2021 Home Infusion [facility] Infusi on Suze Evans, [facility] [address] [facility] [address] [place], [place] [phone] [place] [address] [place] [address] (Wo rk) Social History Tobacco Use Types Packs/Day Years Used Date Smoking Tobacco: Every Day Cigarettes 0.3 10 Smokeless Tobacco: Never Comments: 5-8 cigarettes a day Alcohol Use Standard Drinks/Week Comments Not Currently 0 (1 standard drink = 0.6 oz pure alcoho l) sober since 08/2020 Sex Assigned at Date Recorded Female 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 documented in this encounter Plan of Treatment Upcoming Encounters Date Type Specialty Care Team Description 11/29/2021 Office Visit Wound Care Luis Camara, CALVIN 909 [facility] [place] [address] (Wo rk) 01/21/2022 Office Visit Gastroenterology Juanis Levi 2450 [place] [address] Luis Fernando Miles MD 516 [facility] [place], [place] [address] documented as of this encounter Visit Diagnoses Not on filedocumented in this encounter Additional Health Concerns Infection Onset Date Last Indicated Resolved Time MRSAComment: Added from external infection. 11/07/2014 05/02/2021 Assessment Noted Time PHQ-9 Depression Total Score: 2 12/15/2020 1:07 PM CDT documented as of this encounter Care Teams Residential Sales Associate Relationship Specialty Start Date End Date uJanis Levi PCP - General Addiction Medicine 06/29/21 2450 [place] [address] Stephani Pina, EMERGENCY ROOM SPECIALIST BLINDSTITCH HEMMER Assigned PCP 02/25/[address] [place], [place] [address] Elsa Yeh, RN Registered Nurse Infectious Diseases 07/25/21 documented as of this encounter
--- OUTSIDE RECORDS SUMMARY | 2021-11-28 13:40 | XMS_ITS | Encounter Summary ---
:1980 Author Organization [place] Address 2450 [facility] 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 documented as of this encounter Plan of Treatment Upcoming Encounters Date Type Specialty Care Team Description 11/29/2021 Office Visit Wound Care Luis Camara DPM 909 [place], [place] [address] (Wo rk) 01/21/2022 Office Visit Gastroenterology Juanis Levi 2450 [place] [address] Luis Fernando Miles MD 516 [facility] [address] [place] [address] documented as of this encounter Visit Diagnoses Not on filedocumented in this encounter Additional Health Concerns Infection Onset Date Last Indicated Resolved Time MRSAComment: Added from external infection. 11/07/201406/18 Assessment Noted Time PHQ-9 Depression Total Score: 2 12/15/2020 1:07 PM CDT documented as of this encounter Care Teams Business Development Professional Relationship Specialty Start Date End Date Juanis Levi PCP - General Addiction Medicine 06/29/[address] [place] [phone] Stephani Pina APRN GAME MASTER Assigned PCP 02/25/21 606 [facility] 700 [place], [place] [address] Elsa Yeh, RN Registered Nurse Infectious Diseases 07/25/21 documented as of this encounter
--- OUTSIDE RECORDS SUMMARY | 2021-11-28 13:40 | XMS_ITS | Encounter Summary ---
:1980 Author Organization [place] Address [facility] [place] [address] Care Team Providers Name Role Phone Stephani Pina FARZANA POST ANESTHESIA ROOM NURSE Unavailable [phone] Juanis Levi Primary Care Provider Elsa [...] Department Care Team Description 07/31/2021 Office Visit [facility] Rogelio Treadwell Pain in joint, ankle Orthopedic Clinic MD [place] and foot, right [address] (Primary Dx) 909 [place], [place] 4th Floor [address] [place], [place] [phone] (Wo rk) [address] [phone] Social History Tobacco Use Types Packs/Day Years Used Date Smoking Tobacco: Every Day Cigarettes 0.3 10 Smokeless Tobacco: Never Comments: 5-8 cigarettes a day Alcohol Use Standard Drinks/Week Comments Not Currently 0 (1 standard drink = 0.6 oz pure alcoho l) sober since 08/2020 Sex Assigned at Date Recorded Female 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 [address] [place], [place] [address] documented as of this encounter Visit Diagnoses Diagnosis Pain in joint, ankle and foot, right - P rimary documented in this encounter Additional Health Concerns Infection Onset Date Last Indicated Resolved Time MRSAComment: Added from external infection. 11/07/201406/18 Assessment Noted Time PHQ-9 Depression Total Score: 2 12/15/2020 1:07 PM CDT documented as of this encounter Care Teams Metal Fabricating Supervisor Relationship Specialty Start Date End Date Juanis Levi PCP - General Addiction Medicine 06/29/[address] [place] [phone] Stephani Pina APRN POST ANESTHESIA ROOM NURSE Assigned PCP 02/25/21 [facility] [place] [address] Elsa Yeh, RN Registered Nurse Infectious Diseases 07/25/21 documented as of this encounter
--- OUTSIDE RECORDS SUMMARY | 2021-11-28 13:40 | XMS_ITS | Encounter Summary ---
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 documented as of this encounter Plan of Treatment Upcoming Encounters Date Type Specialty Care Team Description 11/29/2021 Office Visit Wound Care Luis Camara, [place] [address] [place] [address] (Wo rk) 01/21/2022 Office Visit Gastroenterology Juanis Levi [address] [place] [phone] Luis Fernando Miles MD [address] [facility] [address] [place], [place] [address] documented as of this encounter Visit Diagnoses Not on filedocumented in this encounter Additional Health Concerns Infection Onset Date Last Indicated Resolved Time MRSAComment: Added from external infection. 11/07/2014 0502/2021 Assessment Noted Time PHQ-9 Depression Total Score: 2 12/15/2020 1:07 PM CDT documented as of this encounter Care Teams Agile Test Lead Relationship Specialty Start Date End Date Juanis Levi PCP - General Addiction Medicine 06/29/21 [address] [place] [phone] Stephani Pina, Assigned PCP 02/25/21 AUDIO DIRECTOR SPECIMEN BOSS [address] [place], [place] [address] Elsa Yeh, Registered Nurse Infectious Diseases 07/25/21 RN Rogelio Treadwell Assigned Musculoskeletal 08/04/21 MD August Provider [address] [place], [place] [id number] documented as of this encounter
--- OUTSIDE RECORDS SUMMARY | 2021-11-28 13:40 | XMS_ITS | Encounter Summary ---
:1980 Author Organization [facility] Address [address] [place] [address] Care Team Providers Name Role Phone Stephani Pina FARZANA LOGISTICS TEAM LEAD Unavailable [phone] Juanis Levi Primary Care Provider Elsa Yeh RN Unavailable Unavailable Rogelio Treadwell MD Unavailable [phone] Reason for Visit Auth/Cert Specialty Diagnoses / Procedures Referred By Contact Refer red To Contact Surgery Diagnoses Non-healing surgical wound, subsequent encounter Non-healing surgical wound, subsequent encounter [T81.89XD] [facility] Main Or Procedures HC SPLIT GRFT,HEAD,FAC,HAND,FEET <100SQCM Right ankle split skin graft from right.left thigh [address] [facility] [address] [place] [address] Phone: Fax: Referral ID Status Reason Start Date Expiration Date Visits Requ ested Visits Authorized [id number] 1 1 Encounter Details Date Type Department Care Team Description 08/15/2021 Surgery [facility] Main Camryn Christina t ankle split skin OR Keith Owen MD graft from right thigh [address] [facility] 5th Floor [address] [place] [address] [phone] (Wo rk) Surgery Details Date/Time Status Location OR Service Patient Class Case Case Trauma Class Type Case? 08/15/21 2:20 Posted [facility] OR OR 04 Plastics & Outpatient PM [...] on DOS. PT CURRENTLY RESID ES AT [facility]: PLEASE CALL [phone] WITH ANY INSTRUCTIONS AND T LZIET CHANGES FOR 08/15 SURGERY. THEY SET UP TRANSPORT ETC. 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 For Medical Questions, Please Call: ? [phone], Friday - Friday, 8 a.m. - 4:30 p.m. ? After hours and on weekends, call Hospital Paging at [phone] and ask for the Plastic Surgeon high tension tester. [facility] Home Care Following Anesthesia For 24 hours after surgery: Get plenty of rest. A responsible adult must stay with you for at least 24 hours after you leave [facility]. Do not drive or use heavy equipment. [...] doctor is: Dr. Betty Christina, Plastic Surgery: [phone] Or dial [phone] and ask for the resident high tension tester for: Plastics For emergency care, call the: [facility] Emergency Department: [phone] (TTY for hearing impaired: [phone]) documented in this encounter Medications at Time [...] by mouth daily tabletIndications: Vitamin D Deficiency fexofenadine (ELOISE) Take 1 tablet (180 0 07/21 180 MG mg) by mouth daily tabletIndications: as needed for irritant dermatitis allergies nicotine (NICODERM CQ) Place 1 patch onto 28 patch 11 12/08 14 MG/24HR 24 hr the skin every 24 patchIndications: hours Nicotine Dependence clindamycin (CLEOCIN T) Apply topically 2 60 mL 0 08/21 1 % external times daily lotionIndications: monomorphic follicular papules and pustules diclofenac (VOLTAREN) 1 Apply 2 g topically 200 g 0 06/2021 % topical 2 times daily gelIndications: Acute pain of left knee folic acid (FOLVITE) 1 Take 1 tablet (1 mg) 90 tablet 1 06/2021 MG tabletIndications: by mouth daily Folate Deficiency Anemia lactulose (CEPHULAC) 20 Take 1 packet (20 [...] ointment needed for dry skin or irritation senna-docusate Take 2 tablets by 30 tablet 0 08/21/2021 (SENOKOT-S/PERICOLACE) mouth 2 times daily 8.6-50 MG tabletIndications: Osteomyelitis of right ankle, unspecified type (H) thiamine (B-1) 100 MG Take 1 tablet (100 30 tablet 0 2021 tabletIndications: mg) by mouth daily Osteomyelitis of right ankle, unspecified type (H) buprenorphine (SUBUTEX) Place 1 tablet (8 90 tablet 0 05/0408/23/2021 8 MG SUBL sublingual mg) under the tongue tabletIndications: 3 times daily Opioid Dependence ceFAZolin 2 Inject 2 g into the 126 Bag 0 07/21/2021 07/0 06/2021 gIndications: Bacteremia vein every 8 hours diphenhydrAMINE Take 1 capsule (25 0 07/21/2021 [...] Anemia gabapentin (NEURONTIN) Take 3 capsules (300 0 [...] MG tabletIndications: Non-healing surgical wound, subsequent encounter thiamine (B-1) 100 MG Take 1 tablet (100 0 202108/21/2021 tabletIndications: mg) by mouth daily Osteomyelitis of right ankle, unspecified type (H) venlafaxine (EFFEXOR-XR) Take 1 capsule (150 30 capsule 1 08/23/2021 150 MG 24 hr mg) by mouth daily capsuleIndications: Generalized Anxiety Disorder doxycycline hyclate Take 1 capsule (100 18 capsule 0 022 08/30/2021 (VIBRAMYCIN) 100 MG mg) by mouth every capsuleIndications: 12 hours for 9 days infected steroid acne clobetasol (TEMOVATE) Apply topically 2 0 022 08/21/2021 0.05 % external times daily Apply to ointmentIndications: left arm rash Corticosteroid-Responsiv e Dermatosis gabapentin (NEURONTIN) Take 3 capsules (300 30 capsule 0 06/202108/23/2021 100 MG mg) by mouth At capsuleIndications: Bedtime Neuropathic Pain hydrOXYzine (ATARAX) 25 Take 1 tablet (25 30 tablet 0 08/2109/27/2021 MG tabletIndications: mg) by mouth At Anxiety, Pruritus Bedtime hydrOXYzine (ATARAX) 25 Take 1 tablet (25 0 07/2108/21/2021 MG tabletIndications: mg) by mouth At Anxiety, Pruritus Bedtime ibuprofen (ADVIL/MOTRIN) Take 1 tablet (200 30 tablet 0 06/202111/19/2021 200 MG mg) by mouth every 6 tabletIndications: Tooth hours as needed for pain moderate pain (Dental pain) senna-docusate Take 2 tablets by 0 07/09/202106/2021 (SENOKOT-S/PERICOLACE) mouth 2 times daily 8.6-50 MG tabletIndications: Osteomyelitis of right ankle, unspecified type (H) triamcinolone (KENALOG) Apply topically 2 0 07/2108/21/2021 0.1 % external times daily Apply to ointmentIndications: rash areas other Dermatitis than L arm documented as of this encounter Progress Notes Karthik Case RN - 08/15/2021 4:08 PM CDT Report given to GENARO Rooney at [facility]. Camryn Christina MD - 08/15/2021 1:55 PM [...] curette to curettage the biofilm and granulation bricklayer tender. Hemostasis was ensured, and the skin graft [...] in stable condition. Camryn Christina MD MT: [email or web address] Name: STEPHANI KING MRN: [id number] Account: [id number] : 1980 Procedure Date: 08/15/2021 Document: [id number] Brief Op Note - Christiano Santacruz MD - 08/15/2021 3:24 PM CDT [facility] Surgery [facility] Brief Operative Note Pre-operative diagnosis: Non-healing surgical [...] Office Visit Wound Care Luis Camara, [place] [address] [place], [place] [phone] (Wo rk) 01/21/2022 Office Visit Gastroenterology Juanis Levi [address] [place] [address] Luis Fernando Miles MD [address] [place] [address] documented as of this encounter Procedures Procedure Name Priority Date/Time Associated Diagnosis Comme nts SURGICAL PROCUREMENT, 08/15/2021 2:16 PM CDT Non-heali ng surgical GRAFT, SKIN, wound, subsequent SPLIT-THICKNESS, encounter EXTREMITY Special Needs Wound VAC ordered and approv ed. Please make sure patient brings wound vac and all supplies with on DOS. PT GREG SALAZARY RESIDES AT [facility]: PLEASE CALL [phone] WITH ANY I NSTRUCTIONS AND TIME CHANGES FOR 08/15 SURGERY. THEY SET UP TRANSPORT ETC. [facility] Admission Notes since beginning of [...] documented as of this encounter Care Teams Cassandra Consultant Relationship Specialty Start Date End Date Juanis Levi PCP - General Addiction Medicine 06/29/21 [address] [place] [address] Stephani Pina, Assigned PCP 02/25/21 TAPE MACHINE TAILER LOGISTICS TEAM LEAD [address] [place], [place] [address] Elsa Yeh, Registered Nurse Infectious Diseases 07/25/21 Rogelio Wilson Assigned Musculoskeletal 08/04/21 MD August Provider [address] [place] [address] documented as of this encounter
--- OUTSIDE RECORDS SUMMARY | 2021-11-28 13:40 | XMS_ITS | Encounter Summary ---
:1980 Author Organization [place] Address [facility]0 [facility] [place] [address] Care Team Providers Name Role Phone Stephani Pina CLOTH NEUTRALIZER MANAGER DATABASE Unavailable [phone] Juanis Mckenzie Primary Care Provider Elsa Yeh RN Unavailable Unavailable Rogelio Treadwell MD Unavailable [phone] Luis Camara DPM Unavailable [phone] Reason for Referral Home Health Therapies & Aides (Routine: Next available opening) Specialty Diagnoses / Procedures Referred By Contact Refer red To Contact [facility] [address] [place] [address] [phone] Referral ID Status Reason Start Date Expiration Date Visits Requ ested Visits Authorized onsultation (Routine: Next available opening) - Pending Review Specialty Diagnoses / Procedures Referred By Contact Refer red To Contact Dermatology Diagnoses Steroid-induced acne Eros Recinos MD [address] [place] [address] [phone] Referral ID Status Reason Start Date Expiration Date Visits V isits Requested Authorized [id number] Pending 08/22/2021 08/22/2022 1 1 Review Reason for Visit Auth/Cert Specialty Diagnoses / Procedures Referred By Contact Refer red To Contact [facility] [address] [address] Phone: Referral ID Status Reason Start Date Expiration Date Visits Requ ested Visits Authorized [id number] 1 1 Encounter Details Date Type Department Care Team Description 07/23/2021 - [facility] Bethanie Dowd MD [address] [facility] [address] [place] [address] Osteomyelitis of right ankle, unspecifie d type (H) (Primary Dx); 08/22/2021 Encounter Transitional Care La Nena Babb MD [address] [place] [address] Alcohol use disorder, severe, dependence (H); Unit [place] Anxiety; [facility] [address] Steroid-induc ed acne; Street Non-healing surgical wound, subsequent encounter; [place], [place] Chronic hepa titis C without hepatic coma (H); [address] Tooth pain; [phone] Acute pain of l eft knee; Fungal [...] at Date Recorded Female 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 She was[facility]ad[facility] from [facility] for treatment of right ankle osteomyelitis [...] superficial soft tissue edema.? --- Transferred to [facility] on 07/06/21 --- S/p calcaneal hardware removal??and [...] at OSH. --- Wound culture here at [facility] was positive for 1+ staph simulans on [...] up by their clinic in 1 week. Moses DONAHUE boot for 1 more week' ?? Right ankle pain and immobility --- Controlled. --- Continue??PURCHASING 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 ASSISTANT??Suboxone 8mg tid, scheduled APAP 975mg TID, Gabapentin [...] allergenic polyurethane foam dressings (Mepitac tape, Sorbiview, [id number]) over occlusive adhesive semipermeable gauze dressings; [facility] can provide more detailed recommendations --- Overall [...] chronic?? Alcohol use disorder.?? --- HCV quant 278678??at OSH. --- Continue Lactulose??20 g bid --- [...] CONSULT OCCUPATIONAL THERAPY ADULT IP CONSULT SPEECH CONSULTING PRACTICE MANAGER ADULT IP CONSULT DERMATOLOGY IP CONSULT WOUND OSTOMY CONTINENCE NURSE IP CONSULT Code Status Full Code Time Spent on this Encounter I, Shamar Hill MD, personally saw the patient today and spent greater than 30 minutes discharging this patient. Shamar Hill MD [facility] [address] [address] Physical Exam Vital Signs: Temp: 97.8 ??F [...] bearing as tolerated on rt Foot Adult [facility] Follow-up and recommended labs [...] steroid acne in 1 week Appointments on [place] and/or [facility] (with [facility] or [facility] provider or service). Call [phone] if you haven't heard regarding these appointments [...] Qty: 90 tablet, Refills: 0 Comments: JAMES: [id number] Associated Diagnoses: Opioid use disorder, severe, in [...] Folate mg) by mouth daily Deficiency Anemia lactulose (CEPHULAC) 20 Take 1 packet (20 60 Units 0 08/21 GM packetIndications: g) by mouth 2 times Constipation daily lidocaine (XYLOCAINE) 4 % Apply topically 50 mL 0 08/22 external Every Mon, Wed, Fri solutionIndications: pain Morning methocarbamol (ROBAXIN) Take 1 tablet (750 90 tablet 0 /0 06/2021 750 MG tabletIndications: mg) by mouth 3 Osteomyelitis of right times daily ankle, unspecified type (H) miconazole (MICATIN) 2 % Apply topically 2 71 g 0 0 06/2021 external times daily powderIndications: Fungal [...] (NEURONTIN) Take 3 capsules 30 capsule 0 08/22/19 22 08/23/2021 100 MG (300 mg) by mouth capsuleIndications: At Bedtime Neuropathic Pain hydrOXYzine (ATARAX) 25 Take 1 tablet (25 30 tablet 0 08/2109/27/2021 MG tabletIndications: mg) by mouth At Anxiety, Pruritus Bedtime ibuprofen (ADVIL/MOTRIN) Take 1 tablet (200 30 tablet 0 06/202111/19/2021 200 MG tabletIndications: mg) by mouth every Tooth pain 6 hours as needed for moderate pain (Dental pain) levothyroxine Take 1 tablet (125 90 tablet 1 01/07/202008/2021 (SYNTHROID/LEVOTHROID) mcg) by mouth every 125 MCG morning tabletIndications: Hypothyroidism venlafaxine (EFFEXOR-XR) Take 1 capsule (150 30 capsule 1 08/23/2021 150 MG 24 hr mg) by mouth daily capsuleIndications: Generalized Anxiety Disorder documented as of this encounter Progress Notes Breanna Newton - 08/22/2021 3:45 PM CDT SW was told at [facility], pt was leaving. Doctor told pt okay for discharge today. Pt would not stay any longer. Pt started calling transportation but didn't know the address. SW called [facility]. They set up [employer]. [phone]. Pt asked if PT ordered leg cart. [...] meds at home. Pt will call pt's dr on way home. Discharge Plan Discharge Date: 08/22/21 At 3 :15 pm Discharge Disposition: Home . Discharge Services: Home PT/OT/hardwood floor installer Supplies: Meds from TCU went home with pt. Pt will have to get leg cart if pt really needsit. Discharge Transportation: [employer]. [phone] JACKIE redid Bims/ 13 and PHQ 0. TUSHAR Castaneda [facility], Transitional Care Unit Social Work [facility] [place] [address] (PH) [phone] Smita Stone, PT - 08/21/2021 6:06 PM CDT Physical Therapy Discharge Summary Reason for therapy discharge: Poor tolerance for therapy, all functional needs have been met at this time pending further mobilityclearance Progress towards therapy goal(s). See goals on Care Plan in [facility] electronic health record for goal details. [...] pt. Pt hasn't heard if letter to [facility] was received or not. Pt called while SW wasin the room. SW said all are working on pt's discharge. As soon as HC is found and transportation islined up then pt can go. Also, pt has to go to walkin clinic for meds. Pt understood this. TUSHAR Castaneda [facility], Transitional Care Unit Social Work [address] [place] [address], [address] [place] [address] () [phone] LIOT Eros Recinos MD - 08/20/2021 10:13 AM [...] stable at 10.0 Abx to end on 7/5. Tentative discharge on 08/22 Dr Liz[facility]banez [facility] ( [facility]) Pager: [phone] Smita Stone, PT - 08/20/2021 9:17 AM CDT 08/20/21 [...] end on 08/21 Dr Lizet Ibanez MD, [facility] Hospitalist ( Internal medicine) Pager: [phone] LIOT Eros Recinos MD - 08/18/2021 11:05 AM [...] X [address] Liz[facility]banez MD, [facility] ( Internal medicine) Pager: [phone] Marycarmen Cross PT - 08/17/2021 4:10 PM [...] [facility]. Put on there dates and when expected return. SW sent fax and sent email. TUSHAR Castaneda [facility], Transitional Care Unit Social Work [address] [place] [address], [address] [place] [address] (PH) [phone] Eros Recinos MD - 08/17/2021 10:50 AM CDT Charts [...] Recinos MD - 08/16/2021 10:35 AM CDT [facility] Transitional Care Medicine Progress Note - Hospitalist Service Date of Admission: 07/23/2021 Assessment & Plan Stephani King is a 40 yo female??w/ h/o opioid use d/o, alcohol use disorder,??HCV, hypothyroidism, depression, anxiety, and tobacco abuse. She was??admitted to [facility] on 07/06[facility]21 [facility] for treatment of right ankle osteomyelitis [...] superficial soft tissue edema.? --- Transferred to [facility] on 07/06/21 --- S/p calcaneal hardware removal??and [...] at OSH. --- Wound culture here at [facility] was positive for 1+ staph simulans on [...] ankle pain and immobility --- Controlled. --- Continue??PURCHASING 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 ASSISTANT??Suboxone 8mg tid, scheduled APAP 975mg TID, Gabapentin [...] allergenic polyurethane foam dressings (Mepitac tape, Sorbiview, [id number]) over occlusive adhesive semipermeable gauze dressings; WOC [...] chronic?? Alcohol use disorder.?? --- HCV quant 866758??at OSH. --- Continue Lactulose 20 g bid [...] team . Shamar Hill MD Hospitalist Service [facility] Transitional Care Securely message with the [employer] Web Console (learn more here) Text page via [employer] Paging/Directory Interval History Patent with new onset [...] from the original note were not included. [facility] Nurse Inpatient Assessment Today's Assessment: Right [...] control prior to re-starting VAC. Marilu Mar, SCOW CAPTAIN with Ortho will order 4% topical lidicaine [...] 20 Lisa Chandler RN, CWOCN Dept. Pager: [phone] Dept. Office Number: [phone] Eros Recinos MD - 08/15/2021 3:29 PM [...] discussing with dermatology Dr Lizet Ibanez MD, FACP Hospitalist ( Internal medicine) Pager: [phone] - 08/14/2021 2:03 PM [...] depression, anxiety, and tobacco abuse. She was??admitted??to [facility] on 07[facility]21 as a direct transfer from [facility] for treatment of right ankle osteomyelitisby [...] Aparicio MS, RDN, LDN TCU RD pager: [phone] Eros Recinos MD - 08/14/2021 2:00 PM [...] until [address] Liz[facility]banez MD, [facility] Hospital[facility] ( Internal medicine) Pager: [phone] Muriel Alfaro - 08/13/2021 12:50 PM CDT Pt checked with land, who did not receive lease faxed on 08/07/21. SW re-faxed lease to fax #: [phone], per pt's request. SW encouraged pt to confirm if lease wasreceived by land again. SW assured pt that if fax did not go through, then lease [facility], once obtained. Pt agreed. CORBIN Guaman, ER NURSE [facility] [employer] C[employer] Pager: [phone] Elizabeth Howell MD - 08/13/2021 9:31 AM CDT [facility] Transitional Care Medicine Progress Note - Hospitalist Service Date of Admission: 07/23/2021 Assessment & Plan Stephani King is a 40 yo female??w/ h/o opioid use d/o, alcohol use disorder,??HCV, hypothyroidism, depression, anxiety, and tobacco abuse. She was??admitted to [facility] on 07[facility]06[facility]21 as adirect transfer from [facility] for treatment of right ankle osteomyelitisby [...] superficial soft tissue edema.? --- Transferred to [facility] on 07/06/21 --- S/p calcaneal hardware removal??and??I&D [...] at OSH. --- Wound culture here at [facility] was positive for 1+ staph simulans on [...] ankle pain and immobility --- Controlled. --- Continue??PURCHASING 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 ASSISTANT??Suboxone 8mg tid, scheduled APAP 975mg TID, Gabapentin [...] allergenic polyurethane foam dressings (Mepitac tape, Sorbiview, [id number]) over occlusive adhesive semipermeable gauze dressings; [facility] can provide more detailed recommendations --- Overall [...] chronic?? Alcohol use disorder.?? --- HCV quant 769515??at OSH. --- Continue Lactulose 20 g bid [...] team . Elizabeth Howell MD Hospitalist Service [facility] Transitional Care Securely message with the [employer] Console (learn more here) Text page via [employer] Paging/Directory Interval History Rash has been stable. [...] Mendes MD - 08/12/2021 1:04 PM CDT [facility] Transitional Care Medicine Progress Note - Hospitalist Service Date of Admission: 07/23/2021 Assessment & Plan Stephani King is a 40 yo female??w/ h/o opioid use d/o, alcohol use disorder,??HCV, hypothyroidism, depression, anxiety, and tobacco abuse. She was??admitted to [facility] on 07/[facility]21 [facility] for treatment of right ankle osteomyelitis [...] superficial soft tissue edema.? --- Transferred to [facility] on 07/06/21 --- S/p calcaneal hardware removal??and [...] at OSH. --- Wound culture here at [place] was positive for 1+ staph simulans on [...] ankle pain and immobility --- Controlled. --- Continue??PURCHASING 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 ASSISTANT??Suboxone 8mg tid, scheduled APAP 975mg TID, Gabapentin [...] allergenic polyurethane foam dressings (Mepitac tape, Sorbiview, [id number]) over occlusive adhesive semipermeable gauze dressings; WO [...] chronic?? Alcohol use disorder.?? --- HCV quant 357724??at OSH. --- Continue Lactulose 20 g bid [...] care team . Kayden Mendes MD Hospitalist [facility] Transitional Care Securely message with the [employer] Console (learn more here) Text page via [facility] Paging/Directory Interval History Rash has been stable. [...] Oral QAM ??? lidocaine Topical Q Mon Fri Fri AM ??? methocarbamol 750 mg Oral [...] Mendes MD - 08/08/2021 10:45 AM CDT [facility] Transitional Care Medicine Progress Note - Hospitalist Service Date of Admission: 07/23/2021 Assessment & Plan Stephani King is a 40 yo female??w/ h/o opioid use d/o, alcohol use disorder,??HCV, hypothyroidism, depression, anxiety, and tobacco abuse. She was??admitted to [facility] on 07[facility]21 [facility] for treatment of right ankle osteomyelitis [...] superficial soft tissue edema.? --- Transferred to [facility] on 07/06/21 --- S/p calcaneal hardware removal??and [...] at OSH. --- Wound culture here at [place] was positive for 1+ staph simulans on [...] ankle pain and immobility --- Controlled. --- Continue??PURCHASING 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 ASSISTANT??Suboxone 8mg tid, scheduled APAP 975mg TID, Gabapentin [...] allergenic polyurethane foam dressings (Mepitac tape, Sorbiview, [id number]) over occlusive adhesive semipermeable gauze dressings; [facility] can provide more detailed recommendations --- Overall [...] chronic?? Alcohol use disorder.?? --- HCV quant 988169??at OSH. --- Continue Lactulose 20 g bid [...] team . Kayden Mendes MD Hospitalist Service [facility] Transitional Care Securely message with the [employer] Web Console (learn more here) Text page via [employer] Paging/Directory Interval History Reports itching. Rash has [...] from the original note were not included. [facility] Nurse Inpatient Assessment Today's Assessment: Right [...] control prior to re-starting VAC. Marilu Mar, SCOW CAPTAIN with Ortho will order 4% topical lidicaine [...] dry. Cut piece of Hydrofera blue (# [id number]) to size of wound. Moisten HFB with [...] Emily Macias RN BSN CWOCN Dept. Pager: [phone] Dept. Office Number: [phone] Breanna Newton - 08/07/2021 5:24 PM CDT SW checked in with pt. Pt didn't have the whole lease signed. Pt signed lease while SW was there. SWfaxed lease to [phone]. SW told pt to call landlord tomorrow to make sure lease was in. If not then let SW know to resend lease. TUSHAR Castaneda [facility], Transitional Care Unit Social Work [address] [place] [address], [address] [place] [address] () [phone] Kayden Mendes MD - 08/06/2021 10:44 AM CDT [facility] Transitional Care Brief Note Stephani King is [...] Howell MD - 08/05/2021 9:16 AM CDT [facility] Transitional Care Medicine Progress Note - Hospitalist Service Date of Admission: 07/23/2021 Assessment & Plan Stephani King is a 40 yo female??w/ h/o opioid use d/o, alcohol use disorder,??HCV, hypothyroidism, depression, anxiety, and tobacco abuse. She was??admitted to [facility] on 07[facility]21 [facility] for treatment of right ankle osteomyelitis [...] superficial soft tissue edema.? --- Transferred to [facility] on 07/06/21 --- S/p calcaneal hardware removal??and [...] at OSH. --- Wound culture here at [place] was positive for 1+ staph simulans on [...] ankle pain and immobility --- Controlled. --- Continue??PURCHASING 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 ASSISTANT??Suboxone 8mg tid, scheduled APAP 975mg TID, Gabapentin [...] allergenic polyurethane foam dressings (Mepitac tape, Sorbiview, [id number]) over occlusive adhesive semipermeable gauze dressings; WOC [...] chronic?? Alcohol use disorder.?? --- HCV quant 209758??at OSH. --- Continue Lactulose 20 g bid [...] team . Elizabeth Howell MD Hospitalist Service [facility] Transitional Care Securely message with the [employer] Console (learn more here) Text page via [employer] Paging/Directory Interval History Uneventful night. No complaints. [...] Vitamin D3 2,000 Units Oral Daily Breanna Boateng - 08/02/2021 5:48 PM CDT SW watched for lease fax all day. Did not come. SW met with pt and told pt. Pt said pt did call landlord and they will send esperanza milanfreddy. TUSHAR Castaneda [facility], Transitional Care Unit Social Work [address] [place] [address] (ph) [phone] Lisa Chandler RN - 08/02/2021 12:33 PM CDT Images from the original note were not included. [facility] WO Nurse Inpatient Assessment Today's Assessment: [...] control prior to re-starting VAC. Marilu Mar, SCOW CAPTAIN with Ortho will order 4% topical lidicaine [...] dry. Cut piece of Hydrofera blue (# [id number]) to size of wound. Moisten HFB with [...] 20 Lisa Chandler RN CWOCN Dept. Pager: [phone] Dept. Office Number: [phone] Sintia Lange PA-C - 08/02/2021 11:28 AM CDT Brief update Consent form signed and placed in chart for surgery scheduled 08/[address] Christina, plan for STSG to R ankle wound. Patient agreeable. Consent signed with witness present. Sintia Lange PA-C Plastic and Reconstructive Surgery [facility] - 08/01/2021 3:54 PM CDT SW was [...] tomorrow. SW and pt called jose. His registered nurse first assistant will fax lease here. Pt will [...] did not come in at 4:57 pm. SW let pt know. TUSHAR Castaneda [facility], Transitional Care Unit Social Work [address] [place] [address], [address] [place] [address] () [phone] Elizabeth Howell MD - 08/01/2021 11:30 AM CDT [facility] Transitional Care Medicine Progress Note - Hospitalist Service Date of Admission: 07/23/2021 Assessment & Plan Stephani King is a 40 yo female??w/ h/o opioid use d/o, alcohol use disorder,??HCV, hypothyroidism, depression, anxiety, and tobacco abuse. She was??admitted to [facility]21 [facility] for further care of right ankle [...] ankle pain and immobility --- Controlled. --- Continue??PURCHASING 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 ASSISTANT??Suboxone 8mg tid, scheduled APAP 975mg TID, Gabapentin [...] allergenic polyurethane foam dressings (Mepitac tape, Sorbiview, [id number]) over occlusive adhesive semipermeable gauze dressings; [facility] can provide more detailed recommendations --- Overall [...] chronic?? Alcohol use disorder.?? --- HCV quant 688975??at OSH. --- Continue Lactulose 20 g bid [...] team . Elizabeth Howell MD Hospitalist Service [facility] Transitional Care Securely message with the [employer] Console (learn more here) Text page via [facility] Paging/Directory Interval History Uneventful night. No complaints. [...] up in bed, driftingin/out of sleep as insurance writer was setting up IV abx and administering [...] SPIRITUAL HEALTH SERVICES SPIRITUAL ASSESSMENT Progress Note [facility] ([facility]) TCU R 410 07/31/21 REFERRAL SOURCE: Self Referral Unit Air Pollution Compliance Inspector introduced self to Pt. She declined from receiving SHS and visit with Air Pollution Compliance Inspector. PLAN: No follow up necessary. Lucas Allen MA, MPA Associate Air Pollution Compliance Inspector Pager: [phone] Leydi Meng, RONALD - 07/31/2021 9:54 AM CDT CLINICAL NUTRITION [...] female assessed by the dietitian for LOS PM significant for opioid use disorder,??alcohol use disorder,??HCV, hypothyroidism, depression, anxiety, and tobacco abuse??admitted??to [facility] [...] kg) ASSESSED NUTRITION NEEDS Estimated Energy Needs: 4213-6426 kcals/day (25 - 30 kcals/kg) Justification: Maintenance [...] Leydi Meng MS, RD, LDN Unit Pager [phone] Weekend pager: [phone] Emily Macias RN - 07/30/2021 11:04 AM CDT Images from the original note were not included. [facility] WO Nurse Inpatient Assessment Today's Assessment: [...] control prior to re-starting VAC. Marilu Mar, SCOW CAPTAIN with Ortho will order 4% topical lidicaine [...] wound (excluding foam for bridge) : 1 florentino Verified this matched the number of foam pieces applied last dressing change: Yes Number of foam pieces packed into wound (excluding foam for bridge) : 1 black TREATMENT PLAN: Right ankle wound: Every other day and as needed Moisten dressing to remove gently. Cleanse with microklenz and pat dry. Cut piece of Hydrofera blue (# [id number]) to size of wound. Moisten HFB with [...] Emily Macias RN BSN CWOCN Dept. Pager: [phone] Dept. Office Number: [phone] LIOT Smita Stone PT - 07/30/2021 9:14 AM CDT 07/30/21 0900 Appointment Canceled Appointment Canceled Patient declined Cancel Comments PT: Pt declined due to feeling really sore from previous days of therapy, requeststo resume therapy tomorrow. Signing Clinician's Name / Credentials Signing clinician's name / credentials Smita Stone DPT [facility] La Nena Aguilera MD - 07/28/2021 8:01 AM CDT [facility] Transitional Care Medicine Progress Note - Hospitalist Service Date of Admission: 07/23/2021 Assessment & Plan 40 year old female??with past medical history significant for opioid use disorder,??alcohol use disorder,??HCV, hypothyroidism, depression, anxiety, and tobacco abuse??admitted to [facility] on 07/06/21 from [facility] for further care of R [...] labs required:??CBC with diff, BMP and CRP. Dr.??Skipper??will follow labs at discharge untilID follow up. [...] of wound vac ?>Pain control: Currently controlled. -Continue??PURCHASING 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 ASSISTANT??Suboxone ??8mg tid ??; scheduled APAP 975mg TID, [...] allergenic polyurethane foam dressings (Mepitac tape, Sorbiview, [id number]) over occlusive adhesive semipermeable gauze dressings; WOC [...] Transaminitis? # Alcohol use disorder.?? HCV quant 725349??at OSH. ??AST 117---56 , ALT 44--- 42 [...] with periods of confusion early in admission. ??Napoleon to be??toxic vs metabolic??2/ ?withdrawal, infection, sepsis. ??Utox positive only for [...] . La Nena Babb MD Hospitalist Service [facility] Transitional Care Securely message with the [employer] Console (learn more here) Text page via [employer] Paging/Directory Clinically Significant Risk Factors Present on [...] visit (from the past 24 hour(s)). Van Corona, PRESSING DEPARTMENT SUPERVISOR - 07/27/2021 5:10 PM CDT 07/27/21 1500 General Information Onset of Illness/Injury or Date of Surgery 06/28/21 Referring Physician La Nena Babb MD Patient/Family Therapy Goal Statement (PRESSING DEPARTMENT SUPERVISOR) To go home Pertinent History of Current Problem Pt is 40 year old female with past medical history significant for opioid use disorder, alcohol use disorder, HCV, hypothyroidism, depression, anxiety, and tobacco abuse admitted to [facility] on 07/06/21 from [facility] for further care of R ankle osteomyelitis by Orthopedics, Plastics, and Infectious Disease. Pt diagnosed with acute encephalopathy, suspected due to infection/sepsis. Patient was transferred to TCU 07/23 for ongoing cares Iv antibiotics, wound cares. General Observations Pt referred to PRESSING DEPARTMENT SUPERVISOR for cognitive-linguistic evaluation by interdisciplinary team; TCU [...] memory strategy training;Progressive attention training Clinical Impression PRESSING DEPARTMENT SUPERVISOR Diagnosis Mild cognitive impairment Risks & Benefits [...] schedules at prior level of function. Skilled PRESSING DEPARTMENT SUPERVISOR services indicated to train in compensatory memory strategies and instruct in executive function tasksto increase independence in iADLs. Therapy Certification Start of Care Date 07/27/21 Certification date from 07/27/21 Certification date to 08/26/21 Total Evaluation Time Total Evaluation Time (Minutes) 33 (cognitive-linguistic evaluation.) PRESSING DEPARTMENT SUPERVISOR Goals Therapy Frequency (PRESSING DEPARTMENT SUPERVISOR Eval) 4 times/wk PRESSING DEPARTMENT SUPERVISOR Predicted Duration/Target Date for Goal Attainment 08/18/21 PRESSING DEPARTMENT SUPERVISOR Goals PRESSING DEPARTMENT SUPERVISOR Goal 1;PRESSING DEPARTMENT SUPERVISOR Goal 2 PRESSING DEPARTMENT SUPERVISOR: Goal 1 Patient will recall information moderate to high level complexity with 80% accuracy and minimal cues from PRESSING DEPARTMENT SUPERVISOR. PRESSING DEPARTMENT SUPERVISOR: Goal 2 Patient will complete high level executive function tasks with 90% accuracy and minimal cueing from PRESSING DEPARTMENT SUPERVISOR. SUMMARY OF TEST: The CLQT assesses visual [...] PREPARATION OF REPORT: TOTAL TIME: 33 Reference: Sailaja Messina, CCC-PRESSING DEPARTMENT SUPERVISOR, (2001) [employer] Associated attestation - Reyna Ulloa MD - 09/03/2021 10:07 AM CDT Reviewed the plan of care as written by the therapy team. I agree with the charted information in the Rehabilitation evaluation, flowsheet and plan of care Reyna Ulloa MD, A Sales Marketing Transitional Care unit 09/03/21 Emily Macias RN - 07/27/2021 8:11 AM CDT Images from the original note were not included. [facility] Nurse Inpatient Assessment Today's Assessment: Right [...] control prior to re-starting VAC. Marilu Mar, SCOW CAPTAIN with Ortho will order 4% topical lidicaine [...] wound (excluding foam for bridge) : 1 florentino Verified this matched the number of foam [...] with vac drape prior to applying sponge statistical methods teacher to assess integrity of dressing and [...] Emily Macias RN BSN CWOCN Dept. Pager: [phone] Dept. Office Number: [phone] Breanna Newton - 07/25/2021 12:52 PM CDT [...] story home with three minor children in [place], [place]. Previous Functional Status: Pt stated she was IND with ADL's and IADL's. Pt did walk with a limp. DME available: Pt stated none. Patient and family understanding of hospitalization: Appropriate and pleasant. Cultural/Language/Spiritual Considerations: Pt is a 40 y.o. female, , Uzbek-speaking, and is Religious. Abuse concerns: None reported. BIMS: Pt scored 13 on BIMS indicating cognition intact. PHQ-9: Pt scored 0 on PHQ-9 indicating no depressive symptoms. PAS: confirmation number- [id number] Has there been a level II screen? No Were there any recommendations in the screen? No If yes, will the recommendations we incorporated into the Plan of Care? N/A Physical Health Reason for admission: 40 year old female??with past medical history significant for opioid use disorder,??alcohol use disorder,??HCV, hypothyroidism, depression, anxiety, and tobacco abuse??admitted to [facility] on 07/06/21 from [facility] for further care of R ankle osteomyelitis by Orthopedics, Plastics, and Infectious Disease Patient Was transferred to TCU 07/23 for ongoing cares Iv antibiotics, wound cares ?? Provider Information Primary Care Physician: Yenifer Pickens [place] [address] [address], [place], [address] [facility] Health: Juanis Mckenzie [address] [place] [address] Account Supervisor: None Mental Health: Diagnosis: Per H & P Depression and anxiety Current Support/Services: Medications, Therapist, Parenting instructions from the [facility], Sober support group, Online therapy. Previous Services:See above list. Services Needed/Recommended: Pt could not report anything more needed. Substance Use: Diagnosis: Per H &P Opioid use disorder and alcohol and tobacco use disorder. Current Support/Services: Medications,Therapist, Parenting instructions from the [facility], Sober support group, Online therapy. Previous Services: Pt has gone through treatment. Services Needed/Recommended: None at this time. Support System: Marital Status: . lives in [place]. Family support: Mom/ So Parker [phone] lives a mile away. Brother/ Colby Parker [phone] Three minor children 4,5,15 y.o. Other support available: Sober friends. Gaps in support system: Pt's dad just . Otherwise, none reported. Community Resources Current in home services: None reported. Previous services: None reported. 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 Income Source: [place], [place]. Education:[employer], 2 years of college in [employer] and [employer] Financial Concerns: Pt tried to get [...] support, discharge planning, and access to resources. JACKIE completed the 3543 with pt. TUSHAR Castaneda [facility], Transitional Care Unit Social Work [address] [place] [address] () [phone] La Nena Babb MD - 07/25/2021 12:22 PM CDT Chart check TSH came back normal La Nena Babb MD Omayra Edward RN - 07/25/2021 8:30 AM CDT Images from the original note were not included. [facility] WO Nurse Inpatient Assessment Today's Assessment: [...] control prior to re-starting VAC. Marilu Mar SCOW CAPTAIN with Ortho will order 4% topical lidicaine [...] with vac drape prior to applying sponge statistical methods teacher to assess integrity of dressing and [...] Score: 19 Omayra Edward RN Dept. Pager: [phone] Dept. Office Number: [phone] Mariam Richter OT - 07/24/2021 12:58 PM [...] OT: pt reports living in house in [place] w/ 4steps to enter but abelto stay on main level , bathroom has tub shower combo and no bench/no grabbars. low toilet, kids bedrooms are upstairs , mom lives 1mile away and currently assisting w/ kids, PURCHASING 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 ASSISTANT pt did most of the cook ing/cleaning/laundry, [...] (admit to [facility] from [facility]) Referring Physician Sohail Babb Patient/Family Therapy Goal Statement (OT) get home Additional Occupational Profile Info/Pertinent History of Current Problem per chart review:40 year old female with past medical history significant for opioid use disorder, alcohol use disorder, HCV, hypothyroidism, depression, anxiety, and tobacco abuse admitted on 07/06/21 from [facility] for further care of R [...] plan of care Reyna Ulloa MD, A Sales Marketing Transitional Care unit 08/02/21 Smita Stone, PT - 07/24/2021 12:11 PM CDT 07/24/21 0800 Quick Adds Quick Adds Certification Type of Visit Initial PT Evaluation Weight And Test Bar Clerk Language Uzbek Living Environment People in Home child(kayden), dependent (14,8,4) Current Living Arrangements house Home Accessibility no concerns Transportation Anticipated family or friend will provide Living Environment Comments PT: Pt lives in [place], [place] with 4 ILANA after that needs are managed on one level. Pt has dependent children at home and PURCHASING 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 ASSISTANT was IND with household cares but reports not driving for a long time due to ankle issues. Does not own or use PURCHASING 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 ASSISTANT any AD. Pt does report that ~ [...] anxiety, and tobacco abuse admittedon 07/06/21 from [facility] for further care of R [...] fitting/training;patient/family education;postural re-education;prosthetic fitting/training;ROM (range of motion);stair training;strengthening;stretching;burmese ball techniques;TENS;thermotherapy;transfer training;wheelchair management/propulsion training;progressive activity/exercise;risk factor [...] plan of care Reyna Ulloa MD, A Sales Marketing Transitional Care unit 08/02/21 Dilma Adams - 07/24/2021 11:55 AM CDT 07/24/21 1100 Name of Certified Therapeutic Rec Specialist Name of Certified Therapeutic Rec Specialist [facility] Appointment Type Type of Therapeutic Rec Session Therapeutic Rec Assessment General Information Patient Profile Review See Profile for full history and prior level of function Daily Contact with Relatives or Friends Phone call;Visit Pets Other (see comments) (hamster) Community Involvement Community Involvement Disabled Spiritual Practice [facility] Air Pollution Compliance Inspector? No Outings Movies Hobbies/Interests Cards Other (see [...] Care Yes Treatment Plan Interested in Unit [place]? No Type of Intervention Independent with activity Equipment and Supplies While on Unit Movies;Puzzle books Assessment Assessment completed. Pt was provided with list of leisure materials available, pt expressed interest in and was provided with movie list and word searches. Will provide check in for materials as needed. Leydi Meng RD - 07/24/2021 11:54 AM [...] hypothyroidism, depression, anxiety, and tobacco abuse??admitted to [facility] on 07/06/21 from [facility] for further care of R [...] up/Monitoring RD to complete full assessment at [facility] unless otherwise consulted Leydi Meng MS, RD, LDN Unit Pager [phone] Weekend pager: [phone] documented in this encounter H&P Notes La Nena Babb MD - 07/24/2021 8:57 AM CDT [facility] Transitional Care History and Physical - Hospitalist Service Date of Admission: 07/23/2021 Assessment & Plan 40 year old female??with past medical history significant for opioid use disorder,??alcohol use disorder,??HCV, hypothyroidism, depression, anxiety, and tobacco abuse??admitted to [facility] on 07/06/21 from [facility] for further care of R [...] labs required:??CBC with diff, BMP and CRP. Dr.??Skipper??will follow labs at discharge untilID follow up. [...] epic for recommendations.. ?>Pain control: Currently controlled. -Continue??PURCHASING 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 ASSISTANT??Suboxone ??8mg tid ??; scheduled APAP 975mg TID, [...] allergenic polyurethane foam dressings (Mepitac tape, [place], [id number]) over occlusive adhesive semipermeable gauze dressings; WOC [...] Transaminitis? # Alcohol use disorder.?? HCV quant [id number]??at OSH. ??AST 117---56 , ALT 44--- 42 [...] with periods of confusion early in admission. ??Napoleon to be??toxic vs metabolic??2/2 ?withdrawal, infection, sepsis. ??Utox positive only for cannabinoids. ??Started on Lactulose at OSH. Currently alert, oriented, nonfocal.. ?? # Hypokalemia # Hypomagnesemia?? -Replaced ?? # Hypothyroidism ??- Continue Levothyroxine 125mcg QAM. -[facility] TSH [facility] was 2019, repeat TSH with [...] fold between thigh and buttocks.?- seen by FRANCISCOCN - Continue wound cares ? # Anemia?? [...] Anticipated discharge location: home Follow-up Appointments Adult [facility] Follow-up and recommended labs and tests Follow up with Dr Camara or Morgan with Podiatry in 1-2 weeks. Clinic phone number is [phone] ?? Follow up with Plastic Surgery in 2 weeks. ?? Follow up with infectious disease 4-6 weeks. ?? Follow-up Labs: Weekly CBC w diff, BMP, CRP. Please have labs faxed to ID clinic. ?? The patient's care was discussed with the care team La Nena Babb MD Hospitalist [facility] Transitional Care Securely message with the [employer] Console (learn more here) Text page via [employer] Paging/Directory Chief Complaint Weakness, right ankle pain, IV antibiotics administration History of Present Illness 40 year old female??with past medical history significant for opioid use disorder,??alcohol use disorder,??HCV, hypothyroidism, depression, anxiety, and tobacco abuse??admitted to [facility] on 07/06/21 from [facility] for further care of R [...] So Luciano MD; Location: [facility] OR ??? PRODUCTION MECHANIC SURGERY ??? IRRIGATION AND DEBRIDEMENT FOOT, COMBINED [...] 4 MG/0.1ML nasal spray No No Sig: Gary 1 spray (4 mg) into one nostril [...] 12:40 PM CDTAssociated Order(s): DERMATOLOGY IP CONSULT [facility] Inpatient Teledermatology Store and Forward Consult Note [...] physician: Dr. Mckinley Vanessa MD Dermatology Resident [facility] I reviewed all available images and relevant [...] anxiety, and tobacco abuse, initially admitted to [facility] from [facility] on 07/06/21 for R ankle osteomyelitis [...] Miscellaneous Notes Plan of Care - Van Corona SLP - 08/22/2021 3:45 PM CDT Speech Language Therapy Discharge Summary Reason for therapy discharge: Discharged to home. Progress towards therapy goal(s). See goals on Care Plan in Epic electronic health record for goal details. Goals met Therapy recommendation(s): No further therapy is recommended. Pt met all cognitive-linguistic goals with TCU PRESSING DEPARTMENT SUPERVISOR. Plan of Care - Brittnee Scott RN - 08/22/2021 2:14 PM CDT Care Coordination: Discharge Plan: Home care agency: [facility] Patient will receive retirement through this agency at discharge. Incision Care: Patient will need to demonstrate dressing change prior to discharge. Please send home enough dressing supplies until next follow up with plastics in 1 week. Discharge date: Today or tomorrow pending if patient can get transport set up to clinic and then home. Brittnee Scott Patient Truck Shop Supervisor Acute Rehabilitation Unit/ Transitional Care Unit. Plan of Care - Maryam Rose RN - 08/22/2021 1:39 PM CDT Goal Outcome Evaluation: Alert and oriented x 4. Denies chest pain and SOB. Went for her ortho appointment and wound vac was removed. Discharge has been placed but d/t some reasons she will not be discharge today.Banana Handler explained to her that she cannot go there as an outpatient not unless she was discharge to us and can make an appointment with the recovery clinic, pt insisted to go there. Brought by insurance writer and a trainee andnurse explained to her the same information that the insurance writer told her. Explained to pt that she couldnot have any doses of Subutex and will missed 1 dose for today and pt stated that she has stock fromhome.Banana Handler explained the kind of medications, how she [...] accepting new clients for patients living area. [facility]: Left for return call [facility]: Was able to accept patient to care for retirement. Faxed over clinicalsand discharge summary. Brittnee Scott Patient Truck Shop Supervisor Acute Rehabilitation Unit/ Transitional Care Unit. Plan [...] RPIV pulled following completion of ABT. When insurance writer updated pt thatABT course was completed and [...] 99.5. Plan of Care - Marlena Castellanos, REFUGIO - 08/21/2021 12:10 PM CDT Electronic Scale Assembler And Tester Post-Acute Rehab PT: Recert Date: 08/22/2021 Discharge Plan: Home to [place], [place] in house with 4 ILANA with [...] BSC. Takes med whole with thin liquid. Pt [...] n/v. Pt is MOD I to the [facility]. Continent for both B&B and uses BS. Takes med whole with thin liquid. C/o [...] With: patient Plan of Care - Brice Ni, PRESSING DEPARTMENT SUPERVISOR - 08/19/2021 8:53 AM CDT Electronic Scale Assembler And Tester Post-Acute Rehab PRESSING DEPARTMENT SUPERVISOR: Discharge Plan: no ongoing PRESSING DEPARTMENT SUPERVISOR interventions Precautions: IV antibiotics Current Status: Communication: WNL expressive and receptive language Cognition: Mild cognitive impairment- memory, attention, executive function/visuospatial deficits. Swallow: Regular/thin; not formally assessed on TCU Assessment: Patient completed FAVRES task #3, identifying appropriate gift option for [...] c/o of heart burn. MD notified and Jc ordered and knows she wants to see [...] Hoffman RN - 08/17/2021 9:34 AM CDT Banana Handler had checked in on patient on 08/16, pt reported doing well and showing insurance writer her new wound vac. Pt reported no current concerns that needed addressing. Banana Handler circled back regarding interest inCOVID vaccine of which patient said that she would like to have the vaccine here on TCU. Banana Handler infor med Provider to discuss with patient and order if appropriate. New orders in place for vaccine. 0900 08/17/2021: insurance writer approached patient with COVID-19 Screening and Consent of which pt reported,after a lot of thinking, I don't want the vaccine. I have already had the vaccine once and I don't want another one. Banana Handler discussed risks/benefits of vaccine; patient declined. Banana Handler left information packet at bedside should patient be interested in the future. Plan of Care - Evelyn Ascencio RN - 08/17/2021 6:11 AM CDT Report received from evening nurse that pt constantly argued with the nurse regarding her completed PRN order of oxycodone. At the beginning of the software development specialist, pt called insurance writer and asked about her oxycodone prescription. Banana Handler explained to her that the oxycodone order [...] two bottles from her bag and left. Banana Handler asked her if any security was there when she gave the meds to the staff. She said no. Banana Handler called pharmacy but pharmacy responded that they did not take any meds from the patient. Message sent to manager brand and DON. Pt alert and oriented. No [...] 08/16/2021 7:54 PM CDT Goal Outcome Evaluation: [id number]: Pt was alert and oriented x 4. [...] when ever she could not get Oxycodone insurance writer offered pudding, ice cream and bucket of [...] until August 22 f/u with surgeon. MICHAEL SCHAFEFRAT. Orientation: A/O x4 Bowel: Continent using BSC; LB 08/15/21 Bladder: Continent Pain: R thigh and right foot Ambulation/Transfers: A1 walker Diet/ Liquids/ Pills: Regular, thin. Whole. Tubes/ Lines/ Drains: R forearm PIV Skin: Right foot and right thigh graft Plan of Care - Petrona Holland RN - 08/15/2021 12:19 PM CDT A&Ox4. Independent. Continent of both bowel and bladder- uses bedside commode. [facility] 08/15. Denies pain, SOB, chest pain, numbness or tingling. NPO for surgery at 1430. was notified about rash in chest and [...] resulted. NPO to begin at 0500 08/15/21. Banana Handler informed patient. Right foot dressing changed after shower. Orientation: A/O x4 Bowel: Continent using BSC; LBM 08/13/21 Bladder: Continent Pain: Tooth ache Ambulation/Transfers: A1 walker Diet/ Liquids/ Pills: Regular, thin. Whole. Tubes/ Lines/ Drains: R forearm PIV Skin: Right foot Plan of Care - Marlena Castellanos PTA - 08/14/2021 4:03 PM CDT Electronic Scale Assembler And Tester Post-Acute Rehab PT: Recert Date: 08/22/2021 Discharge Plan: Home to [place], [place] in house with 4 ILANA with [...] will have a flap surgery tomorrow at [place], fabrication supervisor at 1215. Patient needs a shower [...] of Care - Perico Lou RN - 08/13/2021 9:56 PM CDT Patient is [...] Cross, PT - 08/13/2021 10:59 AM CDT Electronic Scale Assembler And Tester Post-Acute Rehab PT: Recert Date: 08/22/2021 Discharge Plan: Home to [place], [place] in house with 4 ILANA with [...] Corona SLP - 08/12/2021 4:38 PM CDT Electronic Scale Assembler And Tester Post-Acute Rehab PRESSING DEPARTMENT SUPERVISOR: Discharge Plan: no ongoing PRESSING DEPARTMENT SUPERVISOR interventions Precautions: IV antibiotics Current Status: Communication: [...] pt recalled 5/5 with no cues from PRESSING DEPARTMENT SUPERVISOR.Educated in use of mental imagery strategy in [...] of Care - Marlena Castellanos PTA - 08/12/2021 12:27 PM CDT Electronic Scale Assembler And Tester Post-Acute Rehab PT: Recert Date: 08/22/2021 Discharge Plan: Home to [place], [place] in house with 4 ILANA with [...] bedside commode. Last bowel movement was on 08/10. IV on Left forearm infused IV antibiotic. [...] Corona SLP - 08/10/2021 5:05 PM CDT Electronic Scale Assembler And Tester Post-Acute Rehab PRESSING DEPARTMENT SUPERVISOR: Discharge Plan: no ongoing PRESSING DEPARTMENT SUPERVISOR interventions Precautions: IV antibiotics Current Status: Communication: [...] Castellanos PTA - 08/10/2021 3:54 PM CDT Electronic Scale Assembler And Tester Post-Acute Rehab PT: Recert Date: 08/22/2021 Discharge Plan: Home to [place], [place] in house with 4 ILANA with [...] stair training. Plan of Care - Vickie Erwin, RN - 08/10/2021 2:45 PM CDT Pt [...] of Care - Steve Galeano RN - 08/10/2021 4:13 AM CDT Goal [...] 99.5. Plan of Care - Gucci Ko PRESSING DEPARTMENT SUPERVISOR - 08/09/2021 9:56 AM CDT Electronic Scale Assembler And Tester Post-Acute Rehab PRESSING DEPARTMENT SUPERVISOR: Discharge Plan: no ongoing PRESSING DEPARTMENT SUPERVISOR interventions Precautions: IV antibiotics Current Status: Communication: [...] Jensen PTA - 08/09/2021 9:15 AM CDT Electronic Scale Assembler And Tester Post-Acute Rehab PT: Recert Date: 08/22/2021 Discharge Plan: Home to [place], [place] in house with 4 ILANA with [...] Jensen PTA - 08/08/2021 4:34 PM CDT Electronic Scale Assembler And Tester Post-Acute Rehab PT: Recert Date: 08/22/2021 Discharge Plan: Home to [place], [place] in house with 4 ILANA with [...] training. Plan of Care - Gucci Ko PRESSING DEPARTMENT SUPERVISOR - 08/08/2021 4:04 PM CDT Electronic Scale Assembler And Tester Post-Acute Rehab PRESSING DEPARTMENT SUPERVISOR: Discharge Plan: Likely ongoing PRESSING DEPARTMENT SUPERVISOR Precautions: IV antibiotics Current Status: Communication: WNL [...] sleep. Indep.in room w/knee scooter and to [facility]. Continues IV abx via SL valved picc [...] Jensen PTA - 08/07/2021 4:04 PM CDT Electronic Scale Assembler And Tester Post-Acute Rehab PT: Recert Date: 08/22/2021 Discharge Plan: Home to [place], [place] in house with 4 ILANA with [...] than 99.5. Plan of Care - Marycarmen Cross, PT - 08/06/2021 1:16 PM CDT Electronic Scale Assembler And Tester Post-Acute Rehab PT: Recert Date: 08/22/2021 Discharge Plan: Home to [place], [place] in house with 4 ILANA with [...] 99.5. ?? Plan of Care - Maryam Rose, GENARO - 08/05/2021 10:50 PM CDT Goal Outcome [...] More, PT - 08/05/2021 5:46 PM CDT Electronic Scale Assembler And Tester Post-Acute Rehab PT: Recert Date: 08/22/2021 Discharge Plan: Home to [place], [place] in house with 4 ILANA with [...] Ko SLP - 08/04/2021 12:27 PM CDT Electronic Scale Assembler And Tester Post-Acute Rehab PRESSING DEPARTMENT SUPERVISOR: Discharge Plan: Likely ongoing PRESSING DEPARTMENT SUPERVISOR Precautions: IV antibiotics Current Status: Communication: WNL [...] 99.5. Plan of Care - Ana Rosa Medina, VARINDER - 08/03/2021 2:23 PM CDT Electronic Scale Assembler And Tester Post-Acute Rehab PRESSING DEPARTMENT SUPERVISOR: Discharge Plan: Likely ongoing PRESSING DEPARTMENT SUPERVISOR Precautions: IV antibiotics Current Status: Communication: WNL [...] Vicente, PT - 08/03/2021 11:27 AM CDT Electronic Scale Assembler And Tester Post-Acute Rehab PT: Recert Date: 08/22/2021 Discharge Plan: Home to [place], [place] in house with 4 ILANA with [...] with pt to discuss COVID vaccine status. Banana Handler offered and provided education re COVID vaccine [...] with POC. Plan of Care - Gucci Ko PRESSING DEPARTMENT SUPERVISOR - 08/01/2021 4:52 PM CDT Electronic Scale Assembler And Tester Post-Acute Rehab PRESSING DEPARTMENT SUPERVISOR: Discharge Plan: Likely ongoing PRESSING DEPARTMENT SUPERVISOR Precautions: IV antibiotics Current Status: Communication: WNL expressive and receptive language Cognition: Mild cognitive impairment- memory, attention, executive function/visuospatial deficits. Swallow:Regular/thin; not formally assessed on TCU Assessment: PRESSING DEPARTMENT SUPERVISOR: Patient engaged in deductive reasoning task. Focus this date on strategies to recognize and correct errors. Patient this date was able to recognize errors but unable to repair without significant assistance. Discussed plan with patient to extend PRESSING DEPARTMENT SUPERVISOR interventions into early next week pending progress and discharge plan. Other Barriers to Discharge (Family Training, etc): none noted at this time. Plan of Care - Marycarmen Cross, PT - 08/01/2021 4:16 PM CDT Electronic Scale Assembler And Tester Post-Acute Rehab PT: Recert Date: 08/22/2021 Discharge Plan: Home to [place], [place] in house with 4 ILANA with [...] goal(s). See goals on Care Plan in [facility] electronic health record for goal details. [...] PM CDT Care Coordination: Patient's mother called insurance writer to communicate concerns she had about patient leaving the facility tomorrow for a pass to go home to sign a lease. She stated that patient has alcoholism and she is concerned she is leaving to drink. She states that patient has participated in inpatient treatment multiple times and has relapsed after every treatment. She states that patient has a medical social worker assigned to her in the community and did have a counselor. She states that patient was actively drinking priorto hospitalization. Patient's mother has been taking care of her children. Her mother states she haslost her own job trying to take care of the children and would like patient to have a sobriety plan for when she discharges home. Banana Handler did alert MD on TCU, social work, and DON. Leydi Alarcon RN, BSN, CRRN Patient Truck Shop Supervisor Acute Rehabilitation Unit/Transitional Care Unit : [phone] Pager: [phone] Care Plan - oS Rojas RN - 08/01/2021 3:00 PM CDT [...] Joel OTA - 08/01/2021 10:22 AM CDT Electronic Scale Assembler And Tester Post-Acute Rehab OT: Discharge Plan: home w/ [...] modified indep it items accessible. IADLs: indep PURCHASING 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 ASSISTANT per pt, demo simple kitchen mobility and [...] Demonstrates good safety with use of knee bobbin loose end finder with ambulation. Other Barriers to Discharge (DME, [...] - 07/31/2021 3:36 PM CDT Care Coordination Banana Handler met with patient to assess level of support patient would have at home. Patient stated her mom was her primary support. Mother is currently watching patients children. Patient stated she would have to talk to her mother to see if she was willing to learn the dressing changes, and IV antibiotics. Banana Handler asked for permission to discuss update with patients mother, patient granted insurance writer this permission. Banana Handler called mother. Mother discussed that she was already feeling overwhelmed with the responsibility of watching the kids. Mother was not willing to commit to learning the dressing change or IV antibiotics at this time. Banana Handler will bring this information back to IDT to reassess plan of care. Brittnee Scott RN Plan of Care - Gucci Ko SLP - 07/31/2021 12:56 PM CDT Electronic Scale Assembler And Tester Post-Acute Rehab PRESSING DEPARTMENT SUPERVISOR: Discharge Plan: Likely ongoing PRESSING DEPARTMENT SUPERVISOR Precautions: IV antibiotics Current Status: Communication: WNL [...] Richter OT - 07/31/2021 12:51 PM CDT Electronic Scale Assembler And Tester Post-Acute Rehab OT: Discharge Plan: home w/ [...] modified indep it items accessible. IADLs: indep PURCHASING 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 ASSISTANT per pt, demo simple kitchen mobility and [...] Care - Steve Galeano RN - 07/31/2021 6:46 AM CDT Goal Outcome [...] was effective. Wound vac taken off by [facility] nurse and mepilex dressing on. PICC line [...] side commode indep. [facility] Skin: Red bumps on left upper arm and right lower leg Pain: Yes c/o of aching all over CMS: intact Dressing: PICC dressing, and right ankle dressing, wound vac removed today by [facility] Diet: regualr LDA: Picc left AC Equipment: [...] With: patient Plan of Care - Gucci Ko, PRESSING DEPARTMENT SUPERVISOR - 07/30/2021 12:49 PM CDT Electronic Scale Assembler And Tester Post-Acute Rehab PRESSING DEPARTMENT SUPERVISOR: Discharge Plan: Likely ongoing PRESSING DEPARTMENT SUPERVISOR Precautions: IV antibiotics Current Status: Communication: WNL [...] Aguilera OTA - 07/30/2021 12:41 PM CDT Electronic Scale Assembler And Tester Post-Acute Rehab OT: Discharge Plan: home w/ [...] (pericares per nsg w/ setup) IADLs: indep PURCHASING 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 ASSISTANT per pt, Vision/Cognition: glasses, demo impaired memory,reasoning [...] 99.5. ?? Plan of Care - Marycarmen Cross PT - 07/29/2021 4:35 PM CDT Electronic Scale Assembler And Tester Post-Acute Rehab PT: Discharge Plan: Home to [place], [place] in house with 4 ILANA with [...] 97 % Patient does not have new [id number] symptoms. Patient does not have new sore [...] Aguilera OTA - 07/28/2021 12:52 PM CDT Electronic Scale Assembler And Tester Post-Acute Rehab OT: Discharge Plan: home w/ [...] (pericares per nsg w/ setup) IADLs: indep PURCHASING 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 ASSISTANT per pt, Vision/Cognition: glasses, demo impaired memory,reasoning [...] Corona SLP - 07/27/2021 5:18 PM CDT Electronic Scale Assembler And Tester Post-Acute Rehab PRESSING DEPARTMENT SUPERVISOR: Discharge Plan: Home, TBD if ongoing PRESSING DEPARTMENT SUPERVISOR Precautions: IV antibiotics Current Status: Communication: WNL [...] schedules at prior level of function. Skilled PRESSING DEPARTMENT SUPERVISOR services indicatedto train in compensatory memory strategies [...] - 07/27/2021 12:15 PM CDT Care Coordination: Banana Handler met with patient. Banana Handler introduced role of care coordination. Patient stated they would havemother for support. Patient stated mother would be open to learning abx infusion training, and woundcare training. Banana Handler will place PLC training, and follow up with wound care education pending woundcare plan for discharge. Encouraged patient to reach out with any questions regarding POC. Left nameand number on patients white board. Brittnee Scott RN Plan of Care - Marycarmen Cross PT - 07/27/2021 10:17 AM CDT Electronic Scale Assembler And Tester Post-Acute Rehab PT: Discharge Plan: Home to [place], [place] in house with 4 ILANA with [...] Vicente, PT - 07/26/2021 10:36 AM CDT Electronic Scale Assembler And Tester Post-Acute Rehab PT: Discharge Plan: Home to [place], [place] in house with 4 ILANA with [...] Gibbs, OT - 07/26/2021 7:58 AM CDT Electronic Scale Assembler And Tester Post-Acute Rehab OT: Discharge Plan: home w/ [...] (pericares per nsg w/ setup) IADLs: indep PURCHASING 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 ASSISTANT per pt, Vision/Cognition: glasses, demo impaired memory,reasoning [...] prn pain meds for right ankle pain. [facility] nurse changed vac dressing today without problems [...] Castellanos PTA - 07/25/2021 4:06 PM CDT Electronic Scale Assembler And Tester Post-Acute Rehab PT: Discharge Plan: Home to [place], [place] in house with 4 ILANA with [...] Richter OT - 07/25/2021 12:22 PM CDT Electronic Scale Assembler And Tester Post-Acute Rehab OT: Discharge Plan: home w/ [...] (pericares per nsg w/ setup) IADLs: indep PURCHASING 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 ASSISTANT per pt, Vision/Cognition: glasses, demo impaired memory,reasoning [...] Richter OT - 07/24/2021 12:59 PM CDT Electronic Scale Assembler And Tester Post-Acute Rehab OT: Discharge Plan: home w/ mom to support PRN, Recert: 08/22 Precautions: NWB RLE, falls, mild cog deficits , IV antibiotics, wound vac Current Status: ADLs: Mobility: sba Grooming: sba Dressing: sba ub and LB drg Bathing: NT Toileting: NT IADLs: indep PURCHASING 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 ASSISTANT per pt, Vision/Cognition: glasses, demo impaired memory,reasoning [...] Regimen Review - Suze Morales [facility] - 07/24/2021 12:21 PM CDT Pharmacy [...] are listed with recommendations. Suze Morales, SidneyD, [facility] Current Facility-Administered Medications: ??? [START ON 07/26/2021] [...] nicotine Patch in Place, , Transdermal, Q8H [facility], [facility], La Nena Babb MD ??? Nurse may [...] BID, Bethanie Dowd MD, 2 tablet at 07/23/212117 ??? sodium chloride (PF) 0.9% PF flush [...] Pharmacy-TCU review of H&P - Suze Morales RPH - 07/24/2021 12:21 PM CDT I have reviewed this patient's TCU admission History & Physical for medication related changes/recommendations identified by the admitting provider. I am confirming that there are no recommendations requiring changes to medication orders are indicated at this time based on the provider recommendations in the H&P. Suze Morales PharmD, BCPS Plan of Care - Smita Sotne PT - 07/24/2021 12:12 PM CDT Electronic Scale Assembler And Tester Post-Acute Rehab PT: Discharge Plan: Home to [place], [place] in house with 4 ILANA with [...] IV abx q8hrs. Pt.states picc placed @ [facility]. Prefers to keep dinner tray on bedside [...] Continues on regular diet. Requested to see medical social worker about setting up Advance Directive, sticky note [...] is alert and oriented X 3. See Epic for VS and assessment. Patient is able [...] Care Luis Camara DPM [address] [place] [address] (Wo rk) 01/21/2022 Office Visit Gastroenterology Juanis Mckenzie [address] [place] [address] Luis Fernando Miles MD [address] [address] Scheduled Referrals Name Type Priority Associated Diagnoses [...] (ABNORMAL) Manual Differential (08/20/2021 7:36 AM CDT) [facility] Method Time Signature % Neutrophils 45 [...] City/State/ZIP Code [place] [address] Care Lab [address] [facility], Room M309 (ABNORMAL) CBC with platelets and differential (08/20/2021 7:36 AM CDT) [facility] gist Method Time Signature WBC Count [...] City/State/ZIP Code [place] [address] Care Lab [address] [facility], Room M309 (ABNORMAL) CRP inflammation (08/20/2021 7:36 AM CDT) [facility] Method Time Signature CRP Inflammation 8.9 (H) [...] City/State/ZIP Code [place] [address] Care Lab [facility], Room M309 (ABNORMAL) Basic metabolic panel (08/20/2021 7:36 AM CDT) [facility] Method Time Signature Sodium 142 133 [...] and gender (Paul et al., NEJM, DOI: [id number]) Specimen Anatomical Collection Method / Collection Time Recei isak Time (Source) Location / Volume Laterality Blood STRUCTURE OF LEFT Venipuncture / 08/20/2021 7:36 08/20 7:40 UPPER LIMB / Unknown AM CDT AM CDT Unknown La Nena Babb MD LAB - BLOOD ORDERABLES Performing Organization Address City/State/ZIP Code [place] [address] [place] [address], Room [address]309 Extra Green Top (Siloam Heparin) Tube (08/17/2021 5:07 AM CDT) P [...] BLOOD ORDERABLE S Performing Organization Address City/State/[place]IP [facility] [place] [address] Care [address] [place] [address], Room M309 (ABNORMAL) CBC with platelets (08/17/2021 5:07 AM CDT) Patholo gist Method Time Signature [...] City/State/ZIP Code [place] [address] Care Lab [address] [place] [address], Room M309 Extra Purple Top Tube (08/16/2021 [...] City/State/ZIP Code [place] [address] Care Lab [address] [place] [address], Room M309 (ABNORMAL) Hepatic panel (08/16/2021 1:05 [...] City/State/ZIP Code [place] [address] Care Lab [address] [facility], Room M309 (ABNORMAL) Basic metabolic panel (08/16/2021 1:05 PM CDT) [facility] gist Method Time Signature Sodium 138 133 - [...] and gender (Paul et al., NEJM, DOI: 10.1056/[id number]) Specimen Anatomical Collection Method / Collection Time Recei isak Time (Source) Location / Volume Laterality Blood STRUCTURE OF LEFT Venipuncture / 08/16/2021 1:05 08/16 1:16 UPPER LIMB / Unknown PM CDT PM CDT Unknown La Nena Babb MD LAB - BLOOD ORDERABLES Performing Organization Address City/State/ZIP Code [place] [address] Care Lab [address] [facility], Room M309 Asymptomatic COVID-19 Virus (Coronavirus) [...] exposure or clinical presentation sugges ts COVID-19. ??[facility] are certified under the Clinical Laborat ory Improvement Amendments of 1988 (CLIA-88) as qualified to perform moderate and/or high complexity laboratory testing. Christiano Santacruz MD LAB - MICRO GENERAL ORDERABL ES Performing Organization Address City/State/ZIP Code [place] [address] Care Lab [address] [facility], Room M309 (ABNORMAL) CBC with platelets and differential (08/13/2021 6:05 AM CDT) [facility] gist Method Time Signature WBC Count [...] City/State/ZIP Code [place] [phone] Care Lab [address] [facility], Room M309 CRP inflammation (08/13/2021 6:05 [...] Code Phon e Number UR LABORATORY [facility] [place] [phone] Care Lab [address] [facility], Room M309 (ABNORMAL) Basic metabolic panel (08/13/2021 6:05 AM CDT) [facility] gist Method Time Signature Sodium 141 [...] and gender (Paul et al., NEJM, DOI: 10.1056/[id number]) Specimen Anatomical Collection Method / Collection Time Recei isak Time (Source) Location / Volume Laterality Blood STRUCTURE OF LEFT Venipuncture / 08/13/2021 6:05 08/13 6:34 UPPER LIMB / Unknown AM CDT AM CDT Unknown La Nena Babb MD LAB - BLOOD ORDERABLES Performing Organization Address City/State/ZIP Code Phon e Number UR LABORATORY [facility] [place] [address] Care Lab [address] [facility], Room M309 Asymptomatic COVID-19 Virus (Coronavirus) by PCR Nasopharyngeal (08/10/2021 2:52 PM CDT) [facility] Method Time Signature SARS CoV2 PCR [...] This charito t was validated by the [facility] Infectious Diseases Diag nostic Laboratory. This laboratory is certified under the Clinic al Laboratory Improvement Amendments of 1988 (CLIA-88) as qualifie d to perform high and/or moderate complexity laboratory testing. Kayden Mendes MD LAB - MICRO GENERAL ORDERABL ES Performing Organization Address City/State/ZIP Code Phon e Number [facility] LABORATORY [facility] [place] [address] Diag. Lab [address] [facility], Room D297 Extra Purple Top Tube [...] Code Phon e Number UR LABORATORY [facility] [place] [address] Care Lab [address] [facility], Room M309 (ABNORMAL) Basic metabolic panel [...] and gender (Paul et al., NE, DOI: 10.1056/[id number]) Specimen Anatomical Collection Method / Collection Time Recei isak Time (Source) Location / Volume Laterality Blood STRUCTURE OF LEFT Venipuncture / 08/09/2021 5:45 08/09 6:15 UPPER LIMB / Unknown AM CDT AM CDT Unknown La Nena Babb MD LAB - BLOOD ORDERABLES Performing Organization Address City/State/[facility] Phon [place] [phone] [place], [place] [id number] CRP inflammation (08/06/2021 6:00 AM CDT) Analysis [...] - BLOOD ORDERABLES Performing Organization Address City/State/ZIP [facility] [place] [phone] [place] [address], Room M309 (ABNORMAL) Basic metabolic panel (08/06/2021 [...] and gender (Paul et al., NEJM, DOI: 10.1056/[id number]) Specimen Anatomical Collection Method Collection Time Receive d Time (Source) Location / / Volume Laterality Blood STRUCTURE OF LEFT VAD(CVC, PICC) / 08/06/2021 6:00 AM 08/06/2021 6:36 UPPER LIMB / Unknown CDT AM CDT Unknown La Nena Babb MD LAB - BLOOD ORDERABLES Performing Organization Address City/State/ZIP Code [place] [address] Care Lab [address] [facility], Room M309 (ABNORMAL) CBC with platelets and differential (08/06/2021 5:58 AM CDT) [facility] gist Method Time Signature WBC Count [...] Code Phon e Number UR LABORATORY [facility] [place] [address] Care Lab [address] [facility], Room M309 (ABNORMAL) Basic metabolic panel (08/02/2021 6:13 AM CDT) [facility] gist Method Time Signature Sodium 142 133 [...] and gender (Paul et al., NEJM, DOI: 10.1056/[id number]) Specimen Anatomical Collection Method Collection Time Receive d Time (Source) Location / / Volume Laterality Blood STRUCTURE OF LEFT VAD(CVC, PICC) / 08/02/2021 6:13 AM 08/02/2021 6:24 UPPER LIMB / Unknown CDT AM CDT Unknown La Nena Babb MD LAB - BLOOD ORDERABLES Performing Organization Address City/State/ZIP Code Phon e Number UR LABORATORY [facility] [place] [address] Care Lab [address] [facility], Room M309 (ABNORMAL) CBC with platelets and differential (07/30/2021 5:53 AM CDT) [facility] gist Method Time Signature WBC Count 6.8 4.0 [...] City/State/ZIP Code [place] [address] Care Lab [address] [facility], Room M309 (ABNORMAL) CRP inflammation (07/30/2021 5:53 AM CDT) [facility] gist Method Time Signature CRP Inflammation [...] City/State/ZIP Code [place] [address] Care Lab [address] [facility], Room M309 (ABNORMAL) Basic metabolic panel (07/30/2021 [...] and gender (Paul et al., NEJM, DOI: 10.1056/[id number]) Specimen Anatomical Collection Method / Collection Time Recei isak Time (Source) Location / Volume Laterality Blood STRUCTURE OF RIGHT Venipuncture / 07/30/2021 5:53 /04/2021 7:01 UPPER LIMB / Unknown AM CDT AM CDT Unknown La Nena Babb MD LAB - BLOOD ORDERABLES Performing Organization Address City/State/ZIP Code [place] [address] Care Lab [facility], Room M309 (ABNORMAL) Basic metabolic panel [...] and gender (Paul et al., NEJ, DOI: 10.1056/[id number]) Specimen Anatomical Collection Method Collection Time Receive d Time (Source) Location / / Volume Laterality Blood CATHETER / Unknown VAD(CVC, PICC) / 07/26/2021 8:05 AM 07/26/2021 8:14 Unknown CDT AM CDT La Nena Babb MD LAB - BLOOD ORDERABLES Performing Organization Address City/State/ZIP Code Phon e Number UR LABORATORY [facility] [place] [address] Care Lab [address] [facility], Room M309 Extra Purple Top Tube [...] City/State/ZIP Code Ph[place] [address] Care Lab [address] [place] [address], Room M309 Extra Purple Top Tube (07/25/2021 5:51 AM CDT) P athologist Signature Hold Specimen [facility] 07/25/2021 UR LABORATORY 7:48 AM CDT Specimen Anatomical Collection Method Collection Time Receive d Time (Source) Location / / Volume Laterality Blood VENOUS LINE / VAD(CVC, PICC) / 07/25/2021 5:51 AM 06/0 09/2021 6:44 Unknown Unknown CDT AM CDT La Nena Babb MD LAB - BLOOD ORDERABLES Performing Organization Address City/State/ZIP Code Ph[place] [phone] [place] [address], Room M309 TSH with free T4 reflex (07/25/2021 5:51 AM CDT) athologist Signature TSH 0.76 0.40 - 4.00 07/25/2021 UR LABORATORY mU/L 7:11 AM CDT Specimen Anatomical Collection Method Collection Time Receive d Time (Source) Location / / Volume Laterality Blood VENOUS LINE / VAD(CVC, PICC) / 07/25/2021 5:51 AM 06/0 09/2021 6:38 Unknown Unknown CDT AM CDT La Nena Babb MD LAB - BLOOD ORDERABLES Performing Organization Address City/State/ZIP Code [place] [address] [address] [place] [address], Room M309 documented in this encounter Visit [...] 21 DAYS, 2 doses, First dose on Zoe 07/26/21 at 0900, Last dose on Fri08/16/21 at 0900, For tuberculosis diagnostic: Adjust reading time if needed based on time of administration. Reading must occur between 48-72 hours after administration. Read 07/26/2021 8:24 AM CDT acetaminophen (TYLENOL) tablet 975 mg Given 08/22/2021 2:00 PM CDT 975 mg 975 mg, Oral, EVERY 8 HOURS PRN, mild pain, Starting on 07/23/21 at 1616, Maximum acetaminophen dose from all [...] mg, Oral, EVERY 6 HOURS PRN, moderate pain, Dental pain, Starting on Fri08/20/21 at [...] dose, Starting on 07/30/21 at 1632, Until Fri07/30/21 at 1651 sodium chloride 0.9 % infusion New Bag 08/02/2021 1:13 AM CDT 500 mLs Liza Lloyd: cabinet override, 1 dose, Starting on Zoe 08/02/21 at 0104, Until 08/02/22 at 0113 sodium chloride 0.9 % infusion New Bag 08/05/2021 5:21 PM CDT 500 mLs Maryam Rose: cabinet override, 1 dose, Starting on 08/05/21 at 1621, Until 08/05/21 at 1721 sodium chloride 0.9 % infusion New Bag 08/06/2021 4:44 PM CDT 500 mLs Tyson Dockery: cabinet override, 1 dose, Starting on 08/06/21 at 1629, Until 08/06/21 at 1644 sodium chloride 0.9 % infusion New Bag 08/09/2021 1:19 AM CDT 500 mLs Jennifer Vaca: cabinet override, 1 dose, Starting on Zoe 08/09/21 at 0050, Until Fri08/09/21 at 0119 sodium chloride 0.9 % infusion [...] dose, Starting on 08/12/21 at 1722, Until Fri08/12/21 at 1732 sodium chloride 0.9 % infusion New Bag 08/16/2021 1:54 AM CDT 500 mLs Liza Lloyd: cabinet override, 1 dose, Starting on Zoe 08/16/21 at 0136, Until Fri08/16/21 at 0154 sodium chloride 0.9 % infusion New Bag 08/19/2021 1:13 AM CDT 500 mLs Jennifer Vaca: cabinet override, 1 dose, Starting on 08/19/21 at 0048, Until 08/19/21 at 0113 sodium chloride 0.9 % infusion New Bag 08/20/2021 4:23 PM CDT 500 mLs Radames Kee: cabinet override, 1 dose, Starting on Fri08/20/21 [...] 162 mg 0825 (Given - Provider: Roxy Bautista RN) 0807 (Given - Provider: Roxy Bautista [...] Osteomyelitis clindamycin (CLEOCIN T) 1 % lotion 08 (Given - Provi nia: Roxy Queen RN)2030 (Given - Provider: Radames Kee RN) 08 (Given - Provider: Roxy Bautista RN)2020 (Given - Provider: Radames Kee RN) 08 (Given - Provider: Maryam Rose RN) Topical, 2 TIMES DAILY, First dose on Fr i 08/17/21 at 1200, Apply to the neck, base of the jaw and upper chest diclofenac (VOLTAREN) 1 % topical gel 2 g 816 (Given - Provider: Roxy Bautista RN)2030 (Not Given - Provider: Radames Kee RN - Reason: Patient/family refused) 08 (Given - Provider: Roxy Izaguirre RN)2021 (Not Given - Provider: Radames Kee RN - Reason: Patient/family refused) 2 g, Topical, 2 TIMES DAILY, First dose on 08/18/21 at 1130, For 4 days, Apply to the left knee Indication: pain Send dosing card with product. doxycycline hyclate (VIBRAMYCIN) capsule 100 mg 0824 ( Given - Provider: Roxy Bautista RN)2029 (Given - Provider: Radames Kee RN) 804 (Given - Provider: Roxy Bautista RN)2112 (Given - Provider: Radames Kee RN) 08 (Given - Provider: Jay La) Routine, 100 [...] (Given - Provide r: Roxy Queen RN) 0808 (Given - Provider: Roxy Bautista RN) 0829 [...] Kee RN) 2112 (Given - Provider: Radames Kee, GENARO) 25 mg, Oral, AT BEDTIME, First dose on 07/23/21 at 2200, Indications: Anxiety, Pruritus lactulose (CEPHULAC) Packet 20 g 0824 (Given - Provide r: Roxy Queen RN) 08 (Given - Provider: Roxy Bautista RN) 0831 (Given - Provider: Maryam Rose RN) 20 [...] for an appointment) Topical, EVERY Friday AND MORNING, First dose on Fri07/25/21 at 0800, [...] Radames Kee RN) 0945 (Given - Provider: Jay La N - Comment: Pt applied it by [...] 1 patch, Transdermal, EVERY 24 HOURS, Ad lmft over 24 Hours, First dose on Fri07/24/21 [...] Provider: Roxy Bautista RN - Reason: Patient/family refused)2029 (Not Given - Provider: Radames Kee RN - Reason: Patient/family refused) 08 (Not Given - Provider: Roxy Perez RN - Reason: Patient/family refused)2020 (Not Given - Provider: Radames Kee RN - Reason: Patient/family refused) 0829 (Given - Provider: Jay La) 2 tablet, Oral, 2 TIMES DAILY, First dos e on Fri07/23/21 at 2100, Indications: Constipation, Hold for loose stools. sodium chloride (PF) 0.9% PF flush 3 mL (CANCELED) 005 4 (Given - Provider: Frederick Jack RN)0813 (Given - Provider: Roxy Bautista RN)1623 (Given - Provider: Radames Kee RN) 0105 (Given - Provider: Liza Lloyd RN)0806 (Given - Provider: Roxy Bautista RN)1659 (Given - Provider: Radames Kee RN) 0221 (Not Given - Provider: Liza sarah RN - Reason: Loss of IV access) 3 mL, Intracatheter, EVERY 8 HOURS, Firs t dose on Fri08/11/21 at 0100, to lock peripheral IV dormant line thiamine (B-1) tablet 100 mg 0824 (Given - Provider: Ameya Bautista RN) 0806 (Given - Provider: Roxy [...] Units 0824 ( Given - Provider: Roxy Bautista, GENARO) 0806 (Given - Provider: Roxy Bautista, GENARO) 0829 (Given - Provider: Maryam Rose RN) 2,000 Units, Oral, DAILY, First dose on 07/23/21 at 1630, Indications: Vitamin D Deficiency, Note: 25 mcg = 1000 units PRN Medication Order 08/20/2021 08/21/2021 08/22/2021 acetaminophen (TYLENOL) tablet 975 mg 0306 (Given - Pr ovider: Frederick Jack RN)2129 (Given - Provider: Radames Kee, GENARO) 0807 (Given - Provider: Roxy Bautista RN)1737 [...] Bautista RN) 0834 (Given - Provider: Maryam Rose, GENARO) 30 mL, Oral, EVERY 4 HOURS PRN, indigest ion, Starting on 08/18/21 at 1055, Shake well. fexofenadine (ELOISE) tablet 180 mg 180 mg, Oral, DAILY PRN, allergies, Star ting on 07/23/21 at 1616, Indications: irritant dermatitis hydrOXYzine (ATARAX) [...] Radames Kee, RN)2210 (Given - Provider: Radames Kee RN) 0454 (Given - Provider: Liza butts [...] dormant line, Starting on 08/11/21 at 0057 No Frequency Medication Order 08/20/2021 [...] after each naloxone dose. Consider transfer to IC U if patient respiratory parameters have not [...] documented as of this encounter Care Teams Vacuum Caster Relationship Specialty Start Date End Date Juanis Mckenzie PCP - General Addiction Medicine 06/29/21 [address] [place] [phone] Stephani Pina, Assigned PCP 02/25/21 CLOTH NEUTRALIZER MANAGER DATABASE [address] [place] [address] Elsa Yeh, Registered Nurse Infectious Diseases 07/25/21 RN Rogelio Treadwell Musculoskeletal 08/04/21 MD August Provider [address] [place] [address] Luis Camara MD Podiatry 08/16/21 CALVIN Burnett [address] [place] [address] documented as of this encounter
--- OUTSIDE RECORDS SUMMARY | 2021-11-28 13:40 | XMS_ITS | Encounter Summary ---
:1980 Author Organization [facility] Address [address] [place] [address] Care Team Providers Name Role Phone Stephani Pina FARZANA SOFTWARE SUPPORT TECHNICIAN Unavailable [phone] Juanis Levi Primary Care Provider Elsa Yeh RN Unavailable Unavailable Rogelio Treadwell MD Unavailable [phone] Encounter Details Date Type Department Care Team Description 08/10/[address] 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 documented as of this encounter Miscellaneous Notes Telephone Encounter - Tschida, Yessenia - 08/10/2021 1:29 PM CDT Spoke with TCU and they have all information needed including location/date/time/etc. No questions at this time. They do have our number if needed. Telephone Encounter - Kayleighdeni Yessenia - 08/10/2021 1:28 PM CDT ----- Message from Lesly Pina RN sent at 08/10/2021 9:50 AM CDT ----- Regarding: RE: Pre-Op and Current Admission at [facility] I did call them about pre-op and COVID. Could you please call and give them any info they need aboutlogistics of when and where to be? It is [phone] Lesly ----- Message ----- From: Yessenia Marquez Sent: 08/09/2021 5:02 PM CDT To: Lesly Pina RN Subject: RE: Pre-Op and Current Admission at [facility] This is the TCU that you called! Do I need to call? Yessenia ----- Message ----- From: Lesly Pina RN Sent: 08/09/2021 4:13 PM CDT To: Camryn Christina MD, Gucci Moses, # Subject: RE: Pre-Op and Current Admission at [facility] I spoke with the staff at [...] 3:44 PM CDT To: Lesly Pina RN, M Betty Christina MD, # Subject: RE: Pre-Op and Current Admission at [facility] Adding our Lesly MONROYAlma Casas ----- Message ----- From: Gucci Moses Sent: 08/09/2021 11:23 AM CDT To: Camryn Christina MD, Yessenia Marquez Subject: Pre-Op and Current Admission at [facility] Dr. Christina, I am doing chart review for next week and noticed this patient is currently admitted at the [facility] transitional care unit (which I assume is a floor within the hospital) since 07/23/21. I asked the nursing staff here at the [facility] how to coordinate her care and they [...] Visit Wound Care Luis Camara DPM [address] [place], [place] [address] (Wo rk) 01/21/2022 Office Visit Gastroenterology Juanis Levi [address] [place] [address] Luis Fernando Miles MD [address] [phone] documented as of this encounter Visit Diagnoses Not on filedocumented in this encounter Additional Health Concerns Infection Onset Date Last Indicated Resolved Time MRSAComment: Added from external infection. 11/07/201406/18 Assessment Noted Time PHQ-9 Depression Total Score: 2 12/15/2020 1:07 PM CDT documented as of this encounter Care Teams Emblem Maker Relationship Specialty Start Date End Date Juanis Levi PCP - General Addiction Medicine 06/29/[address] [place] [phone] Stephani Pina, Assigned PCP 02/25/21 CIVIL ENGINEERING ASSISTANT SOFTWARE SUPPORT TECHNICIAN [address] [place] [address] Elsa Yeh, Registered Nurse Infectious Diseases 07/25/21 RN Rogelio Treadwell Assigned Musculoskeletal 08/04/21 MD August Provider [address] [place] [address] documented as of this encounter
--- OUTSIDE RECORDS SUMMARY | 2021-11-28 13:40 | XMS_ITS | Encounter Summary ---
:1980 Author Organization [facility] Address [address] [place] [address] Care Team Providers Name Role Phone Stephani Pina FARZANA SPRAYER AUTO PARTS Unavailable [phone] Juanis Levi Primary Care Provider Elsa Yeh RN Unavailable Unavailable Rogelio Treadwell MD Unavailable [phone] Reason for Visit Auth/Cert Specialty Diagnoses / Procedures Referred By Contact Refer red To Contact Surgery Diagnoses Non-healing surgical wound, subsequent encounter Non-healing surgical wound, subsequent encounter [T81.89XD] [facility] Main Or Procedures HC SPLIT GRFT,HEAD,FAC,HAND,FEET <100SQCM Right ankle split skin graft from right.left thigh 909 [facility] 5th [place] [address] Phone: Fax: Referral ID Status Reason Start Date Expiration Date Visits Requ ested Visits Authorized [id number] 1 1 Encounter Details Date Type Department Care Team Description 08/15/2021 [facility] Main OR Keith Owen MD wound, subsequent [address] [place] [address] SE encount er SE 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 For Medical Questions, Please Call: ? [phone], Friday - Friday, 8 a.m. - 4:30 p.m. ? After hours and on weekends, call Hospital Paging at [phone] and ask for the Plastic Surgeon magnetic resonance imaging coordinator. [facility] Home Care Following Anesthesia For 24 hours after surgery: Get plenty of rest. A responsible adult must stay with you for at least 24 hours after you leave [facility]. Do not drive or use heavy [...] doctor is: Dr. Betty Christina, Plastic Surgery: [phone] Or dial [phone] and ask for the resident magnetic resonance imaging coordinator for: Plastics For emergency care, call the: [facility] Emergency Department: [phone] (TTY for hearing impaired: [phone]) documented in this encounter Medications at Time [...] CDT Report given to GENARO Rooney at [facility]. Camryn Christina MD - 08/15/2021 1:55 PM [...] curette to curettage the biofilm and granulation linoleum layer apprentice. Hemostasis was ensured, and the skin graft [...] Christina MD MT: [email or web address]/[id number] Name: STEPHANI KING Account: [id number] : 1980 Procedure Date: 08/15/2021 Document: [id number] Brief Op Note - Christiano Santacruz MD - 08/15/2021 3:[address] [facility] Surgery [facility] Brief Operative Note Pre-operative diagnosis: [...] Visit Wound Care Luis Camara DPM [address] [place] [address] (Wo rk) 01/21/2022 Office Visit Gastroenterology Juanis Levi [address] [place] [phone] Luis Fernando Miles MD [address] [facility] [address] [place] [address] documented as of this encounter Procedures Procedure Name Priority Date/Time Associated Diagnosis Comme [facility] SURGICAL PROCUREMENT, 08/15/2021 2:16 PM CDT Non-heali ng surgical GRAFT, SKIN, wound, subsequent SPLIT-THICKNESS, encounter EXTREMITY Special Needs Wound VAC ordered and approv ed. Please make sure patient brings wound vac and all supplies with on DOS. PT GREG GALEAS RESIDES AT [facility]: PLEASE CALL [phone] WITH ANY I NSTRUCTIONS AND TIME CHANGES FOR 08/15 SURGERY. THEY SET UP TRANSPORT ETC. Cristin [facility] Admission Notes since beginning of July; Dr. [...] documented as of this encounter Care Teams Teacher Hearing Impaired Relationship Specialty Start Date End Date Juanis Levi PCP - General Addiction Medicine 06/29/21 [address] [place] [address] Stephani Pina, Assigned PCP 02/25/21 BINDER CUTTER SPRAYER AUTO PARTS [facility] [address] [place] [address] Elsa Yeh, Registered Nurse Infectious Diseases 07/25/21 RN Rogelio Treadwell Assigned Musculoskeletal 08/04/21 MD August Provider [address] [place] [address] documented as of this encounter
--- OUTSIDE RECORDS SUMMARY | 2021-11-28 13:40 | XMS_ITS | Encounter Summary ---
:1980 Author Organization [facility] Address [address] [place] [address] Care Team Providers Name Role Phone Stephani Pina AUTO INSPECTOR SIZING SPRAYER Unavailable Juanis Levi Primary Care Provider Elsa Yeh RN Unavailable Unavailable Reason for Visit Reason Comments Schedule Surgery Encounter Details Date Type Department Care Team Description 08/01/2021 Documentation Only [facility] Camryn Christina [facility] Surgery Plastic and MD Lexie Reconstructive Surgery [address] [place] [address] [address] [address] [place], [place] [phone] (Work) [phone] Social History Tobacco Use Types Packs/Day Years Used Date Smoking Tobacco: Every Day Cigarettes 0.3 10 Smokeless Tobacco: Never Comments: 5-8 cigarettes a day Alcohol Use Standard Drinks/Week Comments Not Currently 0 (1 standard drink = 0.6 oz pure alcoho l) sober since 08/2020 Sex Assigned at Date Recorded Female 01/14/2020 10:57 AM RISK PROFESSIONAL COVID-19 Exposure Response Date Recorded In the last 10 days, have you been in contact with No / Unsu re 07/31/2021 1:25 PM CDT someone who was confirmed or suspected to have Coronavirus/COVID-19? documented as of this encounter Progress Notes Yessenia Marquez - 08/01/2021 10:05 AM CDT RN Weight Inspector: Lesly Pina; [phone] Surgery is scheduled with Dr. Christina on 08/15 at the [facility] Scheduled per orders H&P to be [...] Visit Wound Care Luis Camara DPM [address] [place], [place] [phone] (Wo rk) 01/21/2022 Office Visit Gastroenterology Juanis Levi [address] [place] [address] Luis Fernando Miles MD [address] [address] documented as of this encounter Visit Diagnoses Not on filedocumented in this encounter Additional Health Concerns Infection Onset Date Last Indicated Resolved Time MRSAComment: Added from external infection. 11/07/201406/18 Assessment Noted Time PHQ-9 Depression Total Score: 2 12/15/2020 1:07 PM CDT documented as of this encounter Care Teams Pumper Head Relationship Specialty Start Date End Date Juanis Levi PCP - General Addiction Medicine 06/29/[address] [place] [address] Stephani Pina APRN SIZING SPRAYER Assigned PCP 02/25/[address] [place] [address] 700 [place] [address] Elsa Yeh, RN Registered Nurse Infectious Diseases 07/25/21 documented as of this encounter
--- OUTSIDE RECORDS SUMMARY | 2021-11-28 13:40 | XMS_ITS | Encounter Summary ---
:1980 Author Organization [facility] Address [address] [place] [address] Care Team Providers Name Role Phone Stephani Pina FARZANA ASSISTANT STORE LEADER Unavailable [phone] Juanis Levi Primary Care Provider Elsa Yeh RN Unavailable Unavailable Rogelio Treadwell MD Unavailable [phone] Reason for Visit Auth/Cert Specialty Diagnoses / Procedures Referred By Contact Refer red To Contact Surgery Diagnoses Non-healing surgical wound, subsequent encounter Non-healing surgical wound, subsequent encounter [T81.89XD] [facility] Procedures HC SPLIT GRFT,HEAD,FAC,HAND,FEET <100SQCM Right ankle split skin graft from right.left thigh 909 [facility] 5th [place] [address] Phone: Fax: Referral ID Status Reason Start Date Expiration Date Visits Requ ested Visits Authorized [id number] 1 1 Encounter Details Date Type Department Care Team Description 08/15/2021 Anesthesia Event [facility] Karen Garnett MD 420 [facility] [address] [place] [address] OR Roosevelt Faye MD 420 [place] [address] [address] Anesthesia Record Procedure Summary Procedure Name Responsible Anesthesia Start Anesthesia Stop Time Anesthesiologist Time Right ankle split Juanis Garnett MD 08/15/21 1431 08/15/21 15 27 skin graft from right thigh (Right: Ankle) Events Date Time Event Comment 08/15/2021 [...] 08/15/21; 1503; 08/15/21 1503 by Right; Leg; LowellelKevin Holli, GENARO Tegaderm Negative Pressure Wound 08/15/21; 1515; 08/15/21 1515 by Therapy Christiano Rojas; Foot; Sanjuana Brown RN Right (Outer right ankle) Peripheral IV 08/13/21; 1622; 22 G; 08/13/21 1622 by 08/17/21 1800 by Deirdre Villafuerte; Max Foster Kendra K, RN Abellan o, Diana Right; Lower forearm; Allie Mendoza RN Chlorhexidine, Skin Barrier; None; 1; Tolerated well Brace/Orthotic/Orthosis 08/15/21; lower, 08/15/21 0000 by 1719 by right; leg; other Henschell, Liza J, Bj moffett, Nurse (see comments) (ROWAN RN boot); 08/22/21; 171 Supraglottic Airway Placement Date: 08/15/21 1426 by 08/15/21 15 27 by 08/15/21; Placement Rubia Pina, Km Pina, Time: 1426 CLINICAL ENGINEERING DIRECTOR INSPECTOR RAG SORTING CLINICAL ENGINEERING DIRECTOR INSPECTOR RAG SORTING documented in this encounter Social History Tobacco [...] at Date Recorded Female 01/14/2020 10:57 AM OCCUPATIONAL HEALTH AND 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 REMOTE RUBY ON RAILS DEVELOPER SURGERY ??? IRRIGATION AND DEBRIDEMENT FOOT, COMBINED [...] and realistic alternatives discussed. Questions answered and patient/leather goods sales representative(s) expressed understanding. - Discussed: - Discussed [...] Notes Anesthesia Care Transfer Note - Rubia Pina, CLINICAL ENGINEERING DIRECTOR INSPECTOR RAG SORTING - 08/15/2021 3:34 PM CDT Patient: Stephani [...] Visit Wound Care Luis Camara DPM [address] [place], [place] [phone] (Wo rk) 01/21/2022 Office Visit Gastroenterology Juanis Levi [address] [place] [phone] Luis Fernando Miles MD [address] [phone] documented as of this encounter Visit Diagnoses [...] documented as of this encounter Care Teams Cage Shift Manager Relationship Specialty Start Date End Date Juanis Levi PCP - General Addiction Medicine 06/29/21 [address] [place] [phone] Stephani Pina, Assigned PCP 02/25/21 CLINICAL ENGINEERING DIRECTOR ASSISTANT STORE LEADER [address] [place] [address] Elsa Yeh, Registered Nurse Infectious Diseases 07/25/21 Rogelio Wilson Assigned Musculoskeletal 08/04/21 MD August Provider [address] [place] [address] documented as of this encounter
--- OUTSIDE RECORDS SUMMARY | 2021-11-28 13:40 | XMS_ITS | Encounter Summary ---
:1980 Author Organization [facility] Address [address] [place] [address] Care Team Providers Name Role Phone Stephani Pina INTENSIVE CARE AMBULANCE PARAMEDIC SILVER CLEANER Unavailable [phone] Juanis Levi Primary Care Provider Elsa Yeh RN Unavailable Unavailable Reason for Visit Reason Onset Date Comments Previsit 07/31/2021 Encounter Details Date Type Department Care Team Description 07/31/2021 PRE VISIT [facility] Rogelio Treadwell, Previsit Orthopedic Clinic [address] [place] [phone] [phone] Social History Tobacco Use Types Packs/Day Years Used Date Smoking Tobacco: Every Day Cigarettes 0.3 10 Smokeless Tobacco: Never Comments: 5-8 cigarettes a day Alcohol Use Standard Drinks/Week Comments Not Currently 0 (1 standard drink = 0.6 oz pure alcoho l) sober since 08/2020 Sex Assigned at Date Recorded Female 01/14/2020 10:57 AM FINISHER POLISHER documented as of this encounter Miscellaneous Notes Telephone Encounter - Anabelle Hamilton - 07/26/2021 11:08 AM CDT DIAGNOSIS: 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 [facility] 12.4.19 R ankle 11.21.05 R ankle Action 6.9.22 11:12 AM KAVEH Action Taken Called [facility] fim desk and LVM for image Action July 27, 2021 4:33 PM MT Action Taken CSS recvd and resolved imgs to PACS. documented in this encounter Plan of Treatment Upcoming Encounters Date Type Specialty Care Team Description 11/29/2021 Office Visit Wound Care Luis Camara DPM [address] [place], [place] [phone] (Wo rk) 01/21/2022 Office Visit Gastroenterology Juanis Levi [address] [place] [address] Luis Fernando Miles MD 516 [facility] 2[address] [place], [place] [phone] documented as of this encounter Visit Diagnoses Not on filedocumented in this encounter Additional Health Concerns Infection Onset Date Last Indicated Resolved Time MRSAComment: Added from external infection. 11/07/2014 05/02/2021 Assessment Noted Time PHQ-9 Depression Total Score: 2 12/15/2020 1:07 PM CDT documented as of this encounter Care Teams Critical Care Paramedic Relationship Specialty Start Date End Date Juanis Levi PCP - General Addiction Medicine 06/29/[address] [place] [phone] Stephani Pina APRN SILVER CLEANER Assigned PCP 02/25/[address] [place], [place] [address] Elsa Yeh, RN Registered Nurse Infectious Diseases 07/25/21 documented as of this encounter
--- OUTSIDE RECORDS SUMMARY | 2021-11-28 13:40 | XMS_ITS | Encounter Summary ---
:1980 Author Organization [facility] Address [address] [place] [address] Care Team Providers Name Role Phone Stephani Pina FARZANA TABLE CUT OFF SAW OPERATOR Unavailable [phone] Juanis Levi Primary Care Provider Elsa Yeh RN Unavailable Unavailable Reason for Visit Diagnostic Imaging XR (Routine) - Pending Review Specialty Diagnoses / Procedures Referred By Contact Refer red To Contact Diagnoses Ankle pain Rogelio Treadwell MD Procedures XR Ankle Right G/E [address] [place] [address] 1845 5 Referral ID Status Reason Start Date Expiration Date Visits V isits Requested Authorized [id number] Pending 07/31/2021 07/31/2022 1 1 Review Encounter Details Date Type Department Care Team Description 07/31/2021 Ancillary Procedure [facility] Rogelio Treadwell nkle pain Orthopedic Xray MD August [address] [place], [place] [address]th Floor [address] [place], [place] [phone] (Wo rk) [address] [phone] Social History Tobacco Use Types Packs/Day Years Used Date Smoking Tobacco: Every Day Cigarettes 0.3 10 Smokeless Tobacco: Never Comments: 5-8 cigarettes a day Alcohol Use Standard Drinks/Week Comments Not Currently 0 (1 standard drink = 0.6 oz pure alcoho l) sober since 08/2020 Sex Assigned at Date Recorded Female 01/14/2020 10:57 AM AREA FIELD PERSON COVID-19 Exposure Response Date Recorded In the last 10 days, have you been in contact with No / Unsu re 07/31/2021 1:25 PM CDT someone who was confirmed or suspected to have Coronavirus/COVID-19? documented as of this encounter Plan of Treatment Upcoming Encounters Date Type Specialty Care Team Description 11/29/2021 Office Visit Wound Care Luis Camara DPM [address] [place], [place] [phone] (Wo rk) 01/21/2022 Office Visit Gastroenterology Juanis Levi [address] [place] [address] Luis Fernando Miles MD [address] [facility] 2[address] [place], [place] [phone] documented as of this encounter Procedures Procedure [...] documented as of this encounter Care Teams Energy Crop Farmer Relationship Specialty Start Date End Date Juanis Levi PCP - General Addiction Medicine 06/29/21 [facility]0 [place] [phone] Stephani Pina APRN TABLE CUT OFF SAW OPERATOR Assigned PCP 02/25/[address] [place] [address] Elsa Yeh RN Registered Nurse Infectious Diseases 07/25/21 documented as of this encounter
--- OUTSIDE RECORDS SUMMARY | 2021-11-28 13:41 | XMS_ITS | Encounter Summary ---
:1980 Author Organization [facility] Address [address] [facility] [place] [address] Care Team Providers Name Role Phone Deann Pina APRN FORESTRY AID TECHNICIAN Unavailable [phone] Juanis Mckenzie Primary Care Provider Reason for Visit Auth/Cert Specialty Diagnoses / Procedures Referred By Contact Refer red To Contact Med Surg Diagnoses Complicated Osteomyelitis Ur Orth[facility] [address] [place] [address] Phone: Fax: Referral ID Status Reason Start Date Expiration Date Visits Requ ested Visits Authorized [id number] 1 1 Encounter Details Date Type Department Care Team Description 07/07/2021 Surgery Formerly [facility] IRRIGATION AND PeriOp Services MD Flo DEBRIDEMENT, FOOT and [address] [place] [address] [address] [facility] [address] ankle[place] [address] [place] [address] exchange [phone] (Wo rk) Surgery Details Date/Time Status Location [...] Date Recorded Female 01/14/2020 10:57 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 # MSSA bacteremia # Irritant versus allergic contact dermatitis ## HCV chronic infection # Transaminitis??- improving.?? # Alcohol use disorder.?? #Acute encephalopathy, suspect toxic metabolic. #Hypokalemia, hypomagnesemia #Hypothyroidism #Chronic pain #Opiate dependency #Pressure ulcers right buttock, gluteal fold #Physical deconditioning #Tobacco use disorder #Anemia, acute on chronic. Follow-ups Needed After Discharge Follow-up Appointments Adult [facility] Follow-up and recommended labs and tests Follow up with Dr Camara or Morgan with Podiatry in 1-2 weeks. Clinic phone number is [phone] Follow up with Plastic Surgery in 2 weeks. Follow up with infectious disease 4-6 weeks. Follow-up Labs: Weekly CBC w diff, BMP, CRP. Please have labs faxed to ID clinic. Appointments on [place] and/or [facility] (with [facility] or [facility] provider or service). Call [phone] if you haven't heard regarding these appointments [...] anxiety, and tobacco abuse??admitted on 07/06/21 from [facility] for further care of R ankle osteomyelitis by Orthopedics, Plastics, and Infectious Disease.? 07/19: Per patient request: Increased Subutex dose to 8 mg 3 times daily, ENGINEERING PROGRAM MANAGER dose. Schedule Robaxin 750 3 times daily. [...] and ankle, wound vac exchange by Dr. Olivrea. ??EBL: 25 ml Per Ortho: ?? aspirin [...] epic for recommendations.. ??>Pain control: Currently controlled. -Continue??ENGINEERING PROGRAM MANAGER??Suboxone 8mg tid ??; scheduled APAP 975mg TID, [...] allergenic polyurethane foam dressings (Mepitac tape, Sorbiview, [id number]) over occlusive adhesive semipermeable gauze dressings; WOC [...] improving.?? # Alcohol use disorder.?? HCV quant 440175??at OSH. ??AST 117, ALT 44, and AP [...] with periods of confusion early in admission. ??[place] to be??toxic vs metabolic??/ ?withdrawal, infection, sepsis. ??Utox positive only for [...] wound cares ? # Anemia??- Hgb 9.9. 07/19. ??Possibly??acute blood loss plus??chronic illness, liver dysfunction. [...] Full Code Time Spent on this Encounter IJaime MD, personally saw the patient today and spent greater than 30 minutes discharging this patient. Elizabeth Howell MD [facility] MED SURG ORTHOPEDIC [address] [place] [phone] Physical Exam Vital Signs: Temp: 98.6 ??F [...] performing Friday and Friday VAC changes Adult [facility] Follow-up and recommended labs and tests Follow up with Dr Camara or Morgan with Podiatry in 1-2 weeks. Clinic phone number is [phone] Follow up with Plastic Surgery in 2 weeks. Follow up with infectious disease 4-6 weeks. Follow-up Labs: Weekly CBC w diff, BMP, CRP. Please have labs faxed to ID clinic. Appointments on [place] and/or [facility] (with [facility] or [facility] provider or service). Call [phone] if you haven't heard regarding these appointments [...] MD Echo Complete Value LVEF 55-60% Narrative [id number]^BUTCH^JAIME [facility] [address] [place] [address] Name: DEANN KING : 1980 Study Date: 07/08/2021 12:07 PM Age: 40 yrs Gender: Female Patient Location: [facility] Reason For Study: Endocarditis Ordering Physician: [...] Qty: 90 tablet, Refills: 0 Comments: JAMES: [id number] Associated Diagnoses: Opioid use disorder, severe, in [...] Reason for Stopping: Allergies No Known Allergies Jaime Rae MD - 07/21/2021 12:29 PM CDT [facility] Hospitalist Discharge Summary Date of Admission: 07/06/2021 Date of Discharge: 07/21/2021 Discharging Provider: Jaime Rae MD Discharge Service: Hospitalist Service, [facility] TEAM 17 Discharge Diagnoses # R ankle wound, osteomyelitis?? # MSSA bacteremia # Irritant versus allergic contact dermatitis ## HCV chronic infection # Transaminitis??- improving.?? # Alcohol use disorder.?? #Acute encephalopathy, suspect toxic metabolic. #Hypokalemia, hypomagnesemia #Hypothyroidism #Chronic pain #Opiate dependency #Pressure ulcers right buttock, gluteal fold #Physical deconditioning #Tobacco use disorder #Anemia, acute on chronic. Follow-ups Needed After Discharge Follow-up Appointments Adult [facility] Follow-up and recommended labs and tests Follow up with Dr Camara or Morgan with Podiatry in 1-2 weeks. Clinic phone number is [phone] Follow up with Plastic Surgery in 2 weeks. Follow up with infectious disease 4-6 weeks. Follow-up Labs: Weekly CBC w diff, BMP, CRP. Please have labs faxed to ID clinic. Appointments on [place] and/or [facility] (with [facility] or [facility] provider or service). Call [phone] if you haven't heard regarding these appointments [...] anxiety, and tobacco abuse??admitted on 07/06/21 from [facility] for further care of R ankle osteomyelitis by Orthopedics, Plastics, and Infectious Disease.? 07/19: Per patient request: Increased Subutex dose to 8 mg 3 times daily, ENGINEERING PROGRAM MANAGER dose. Schedule Robaxin 750 3 times daily. [...] epic for recommendations.. ??>Pain control: Currently controlled. -Continue??ENGINEERING PROGRAM MANAGER??Suboxone 8mg tid ??; scheduled APAP 975mg TID, [...] allergenic polyurethane foam dressings (Mepitac tape, Sorbiview, [id number]) over occlusive adhesive semipermeable gauze dressings; WOC [...] improving.?? # Alcohol use disorder.?? HCV quant 006654??at OSH. ??AST 117, ALT 44, and AP [...] with periods of confusion early in admission. ??[place] to be??toxic vs metabolic??2/2 ?withdrawal, infection, sepsis. [...] minutes discharging this patient. Jaime Rae MD [facility] MED SURG ORTHOPEDIC [address] [place] [phone] Physical Exam Vital Signs: Temp: 98.3 ??F [...] performing Friday and Friday VAC changes Adult [facility] Follow-up and recommended labs and tests Follow up with Dr Camara or Morgan with Podiatry in 1-2 weeks. Clinic phone number is [phone] Follow up with Plastic Surgery in 2 weeks. Follow up with infectious disease 4-6 weeks. Follow-up Labs: Weekly CBC w diff, BMP, CRP. Please have labs faxed to ID clinic. Appointments on [place] and/or [facility] (with [facility] or [facility] provider or service). Call [phone] if you haven't heard regarding these appointments [...] MD Echo Complete Value LVEF 55-60% Narrative [id number]^BUTCH^JAIME [facility] [address] [place] [address] Name: DEANN KING : 1980 Study Date: 07/08/2021 12:07 PM Age: 40 yrs Gender: Female Patient Location: [facility] Reason For Study: Endocarditis Ordering Physician: [...] daily Qty: 90 tablet, Refills: 0 Comments: SIMRANBHARAT: [id number] Associated Diagnoses: Opioid use disorder, severe, in sustained remission, on maintenance therapy (H) cholecalciferol 50 MCG (1999 UT) tablet Take [...] with vac drape prior to applying sponge central office supervisor to assess integrity of dressing and ensure [...] mouth daily tabletIndications: Vitamin D Deficiency fexofenadine (SRAVANTHI) Take 1 tablet (180 0 07/21 180 MG mg) by mouth daily tabletIndications: as needed for irritant dermatitis allergies mineral oil-hydrophilic Apply topically 0 022 petrolatum [...] times daily powderIndications: Fungal rash of trunk senna-docusate Take 2 tablets by 30 tablet [...] glycol Take 17 g by mouth 0 07/10/1908/21/2021 (MIRALAX) 17 g daily as needed for [...] hours for 9 days infected steroid acne gabapentin (NEURONTIN) Take 3 capsules (300 30 [...] needed for pain moderate pain (Dental pain) documented as of this encounter Progress Notes Lisa Chandler RN - 07/23/2021 1:48 PM CDT Images from the original note were not included. [facility] Nurse Inpatient Assessment Today's Assessment: Right lateral [...] with vac drape prior to applying sponge central office supervisor to assess integrity of dressing and ensure [...] to notify the Provider(s) and re-consult the [facility] Nurse if new skin concern. DATA: Current [...] 19 Lisa Chandler RN, CWOCN Dept. Pager: [phone] Dept. Office Number: [phone] Tiffanie Figueroa RN - 07/23/2021 10:17 AM CDT Care Management Discharge Note Discharge Date: 07/23/2021 Discharge Disposition: TCU PAS Confirmation Code: [id number] Education Provided on the Discharge Plan: yes Persons Notified of Discharge Plans: patient and mother, So. Patient/Family in Agreement with the Plan: yes Handoff Referral Completed: Yes Additional Information: Plan for patient to discharge to TCU at 4pm today pending staffing. RNCC available as needed. Update 1400: [facility] will discharge to [facility] at 1600. panel machine tender and bedside RN aware. Bedside RN toarrange transport at 1600. RNCC available as needed. Dr. Mckenzie with [facility] will prescribe Suboxone at discharge. Tiffanie Machado RN, BSN Meeting Facilitator, Ortho Pager Jaime Rae MD - 07/22/2021 8:58 AM CDT [facility] Medicine Progress Note - Hospitalist Service, ONUR TEAM 17 Date of Admission: 07/06/2021 Assessment & Plan 40 year old female??with past medical history significant for opioid use disorder,??alcohol use disorder,??HCV, hypothyroidism, depression, anxiety, and tobacco abuse??admitted on 07/06/21 from [facility] for further care of R ankle osteomyelitis by Orthopedics, Plastics, and Infectious Disease.? Today's changes: 07/22/2021 Overall doing better. No new concern/changes by me [facility] TCU. See discharge summary 07/21 07/19:??Per patient request: Increased Subutex dose to 8 mg 3 times daily, ENGINEERING PROGRAM MANAGER dose. ??Schedule Robaxin 750 3 times daily. [...] epic for recommendations.. ?>Pain control: Currently controlled. -Continue??ENGINEERING PROGRAM MANAGER??Suboxone ??8mg tid ??; scheduled APAP 975mg TID, [...] allergenic polyurethane foam dressings (Mepitac tape, Sorbiview, [id number]) over occlusive adhesive semipermeable gauze dressings; WOC [...] improving.?? # Alcohol use disorder.?? HCV quant 599569??at OSH. ??AST 117, ALT 44, and AP [...] with periods of confusion early in admission. ??[place] to be??toxic vs metabolic??2/2 ?withdrawal, infection, sepsis. [...] care was discussed with the Bedside Nurse, Meeting Facilitator/Wood Room Supervisor and Patient. Jaime Rae MD Hospitalist Service, [facility] TEAM [address] [place] [address] Securely message with the [employer] Console (learn more here) Text page via [facility] Paging/Directory Please see signed in provider for [...] Agreement with the Plan: yes Additional Information: [facility] is unable to accept patient today due to staffing. Admissions requested that patient bebrought over there tomorrow at 1100. Notified charge nurse. Updated patient and she verbalized understanding and agreement to plan. MICHAEL Mehta RNCC RN Meeting Facilitator Office: [phone] Pager: [phone] Cali Zavaleta MD - 07/21/2021 12:17 PM [...] to route this note to the appropriate Epic pools: [facility] INFECTIOUS DISEASE ADULT [facility], [facility], [facility] [place] [facility]/ID Clinic Information: [address] [facility], Clinic [address] [place] [address] Cali Bullock MD on 07/21/2021 at 12:19 PM Cali Bullock MD - 07/21/2021 12:03 PM CDT Images from the original note were not included. 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 Negativesince then. Confirmed with lab by [...] and worse about 2 weeks before admissionto [facility]. Also had periodic fever for 1-2 weeks - MRI right ankle wo contrast 06/29/21 - extensive tibiotalar erosions with large joint effusion and synovitis . - 06/30/21 ([facility]) - Right lateral ankle deep abscess [...] subcutaneous tissue without exposed bone. - 07/02/21 ([facility]) - Right lateral ankle I&D, right lateral calcaneus hardware removal and ankle wound vac exchange. With repeat debridement the wound extended down to the bone and the hardware. All 5 screws were removed and plate was removed. The peroneal tendon and calcaneous were exposed, The defect now measured 7x 4 cm with a depth of 2 cm. - 07/04/21 ([facility]) - Right lateral ankle I&D and wound vac replacement. - 07/07/21 ([facility]) - Right ankle I&D and wound [...] 07/12 at 720 am - blood cxs 2/- neg on 07/07 and 07/09 - blood [...] VL since then), whot was admitted to [facility] from 06/28/21 - 07/06/21 with sepsis and [...] The patient was then transferred to the [facility] ([facility]) on 07/06/21 for further management due to [...] oxacillin susceptible. Cali Bullock MD Infectious Diseases [phone] Interval events Patient overall feels okay. Tolerating [...] abuse. ?? The patient was admitted to [facility] from 06/28/04 - 07/06/21 with sepsis and [...] to the OR on 06/30/[address] [facility] and had a irrigation and debridement of right lateral ankle abscess and wound vac placement. The patient then returned to the OR on 07/02/21 for a repeat irrigation and debridement, lateralcalcaneus hardware removal, and wound vac exchanged. On 07/04/21, patient returned to OR for repeat I&D and wound vac exchange (see procedures below). The patient was then transferred to the [facility] ([facility]) on 07/06/21 for further management due to [...] I&D and wound vac replacement. - 07/07/21 ([facility] - Right ankle I&D and wound [...] costs discussed: Not applicable PAS Confirmation Code: [id number] Patient/family educated on Medicare website which has current facility and service quality ratings: Yes, [facility] Education Provided on the Discharge Plan: yes Persons Notified of Discharge Plans: pt, ortho panel machine tender Adam, Dr Rae Patient/Family in Agreement with the Plan: yes Handoff Referral Completed: Yes Additional Information: SW met with pt and reviewed discharge plan, including referral to Senior Linkage line for PAS/RR. Ptwas very groggy so may not recall conversation. SW updated panel machine tender Adam and Dr. Rae with anticipated discharge to TCU today @ 1:30. YADIRA Diamond MSW [facility] Friday Wood Room Supervisor Text paging available through [employer] on Geotender - search SOCIAL WORK DIRECTOR GLOBAL DEVELOPMENT PAGER [phone] Friday ONLY! DIRECTOR GLOBAL DEVELOPMENT COVERAGE AFTER 1600 Alyce Israel MSW - [...] pay costs discussed: Not applicable Additional Information: JACKIE called [facility] admissions, was told they do not have any anticipated discharges over weekend. They will contact JACKIE should something change and a bed become available. ADDENDUM 10:23: Power Plant Technician informed by Leslie Parikh rehabilitation attendant that there may be a discharge from TCU this afternoon and could possibly accept pt for admissions at 1:30. She is requesting Rapid Covid Test. SW informed Ortho panel machine tender [place], who will request rapid COVID Test. JACKIE completed PAS/RR on line: [id number]. Pt updated. YADIRA Diamond MSW [facility] Friday Wood Room Supervisor Text paging available through [employer] on [facility] Intr[employer] - search SOCIAL WORK DIRECTOR GLOBAL DEVELOPMENT PAGER [phone] Friday ONLY! DIRECTOR GLOBAL DEVELOPMENT COVERAGE AFTER 1600 Paulino Ybarra RN - 07/21/2021 7:51 AM CDT Reji/Ox's 4. Pt rated pain as tolerable. Oxycodone [...] Rae MD - 07/20/2021 10:56 AM CDT [facility] Medicine Progress Note - Hospitalist Service, ONUR TEAM 17 Date of Admission: 07/06/2021 Assessment & Plan 40 year old female??with past medical history significant for opioid use disorder,??alcohol use disorder,??HCV, hypothyroidism, depression, anxiety, and tobacco abuse??admitted on 07/06/21 from [facility] for further care of R ankle osteomyelitis by Orthopedics, Plastics, and Infectious Disease.? Today's changes: 07/20/2021 Overall doing better. Rash, pruritus: improving. Pain controlled. No new concern/changes by me [facility] tcu Ortho, ID, Dermatology, WOCN- following. 07/19: Per patient request: Increased Subutex dose to 8 mg 3 times daily, ENGINEERING PROGRAM MANAGER dose. Schedule Robaxin 750 3 times daily. [...] vac. WOCN consult. ?? - Pain control: -Continue??ENGINEERING PROGRAM MANAGER??Suboxone 8mg tid ??; scheduled APAP 975mg TID, [...] improving.?? # Alcohol use disorder.?? HCV quant 267560??at OSH. ??AST 117, ALT 44, and AP [...] with periods of confusion early in admission. ??[place] to be??toxic vs metabolic??2/2 ?withdrawal, infection, sepsis. [...] care was discussed with the Bedside Nurse, Meeting Facilitator/Wood Room Supervisor and Patient. Jaime Rae MD Hospitalist Service, [facility] [address] [place] [address] Securely message with the [employer] Console (learn more here) Text page via [facility] Paging/Directory Please see signed in provider for [...] from the original note were not included. [facility] Nurse Inpatient Assessment Today's Assessment: Right lateral [...] with vac drape prior to applying sponge central office supervisor to assess integrity of dressing and ensure [...] plan of care with: Patient and Nurse [facility] Nurse follow-up plan:Friday/ Notify WO if wound(s) [...] Emily Macias RN BSN CWOCN Dept. Pager: [phone] Dept. Office Number: [phone] Jaime Rae MD - 07/19/2021 12:42 PM CDT [facility] Medicine Progress Note - Hospitalist Service, ONUR TEAM 17 Date of Admission: 07/06/2021 Assessment & Plan 40 year old female??with past medical history significant for opioid use disorder,??alcohol use disorder,??HCV, hypothyroidism, depression, anxiety, and tobacco abuse??admitted on 07/06/21 from [facility] for further care of R ankle osteomyelitis by Orthopedics, Plastics, and Infectious Disease.? Today's changes: 07/19/2021 Overall doing better. Rash, pruritus: improving. Per patient request: Increased Subutex dose to 8 mg 3 times daily, ENGINEERING PROGRAM MANAGER dose. Schedule Robaxin 750 3 times daily. [...] vac. WOCN consult. ?? - Pain control: -Continue??ENGINEERING PROGRAM MANAGER??Suboxone 8mg tid ??; scheduled APAP 975mg TID, [...] improving.?? # Alcohol use disorder.?? HCV quant 704463??at OSH. ??AST 117, ALT 44, and AP [...] with periods of confusion early in admission. ??[place] to be??toxic vs metabolic??2/2 ?withdrawal, infection, sepsis. [...] care was discussed with the Bedside Nurse, Meeting Facilitator/Wood Room Supervisor and Patient. Jaime Rae MD Hospitalist Service, [facility] TEAM [address] [place] [address] Securely message with the [employer] (learn more here) Text page via [employer] Paging/Directory Please see signed in provider for [...] Skin: Rash around picc, extremities- eczematous, scratch swo. Neuro: Grossly non focal. Others: Stable mood. [...] continue to follow. Tiffanie Machado RN, BSN Meeting Facilitator, 5 Ortho Pager Jah Thompson MD - 07/19/2021 7:31 AM CDT Orthopaedic Surgery Progress Note 07/19/2021 S: VSS, AF. Tolerating diet. Voiding spontaneously. Ambulating independently. Working with PT/OT. Denies fevers or chills. WO was able to place wound vac at [...] Rae MD - 07/18/2021 1:47 PM CDT [facility] Medicine Progress Note - Hospitalist Service, GOLD TEAM 17 Date of Admission: 07/06/2021 Assessment & Plan 40 year old female??with past medical history significant for opioid use disorder,??alcohol use disorder,??HCV, hypothyroidism, depression, anxiety, and tobacco abuse??admitted on 07/06/21 from [facility] for further care of R ankle [...] vac. WOCN consult. ?? - Pain control: continue??ENGINEERING PROGRAM MANAGER??Suboxone 4mg Q4H (was taking this way at [...] improving.?? # Alcohol use disorder.?? HCV quant 538602??at OSH. ??AST 117, ALT 44, and AP [...] with periods of confusion early in admission. ??[place] to be??toxic vs metabolic??2/ ?withdrawal, infection, sepsis. [...] managed on??buprenorphine??since 2009. ??On buprenorphine 4mg QID ENGINEERING PROGRAM MANAGER, increased to Q4H at OSH due to [...] care was discussed with the Bedside Nurse, Meeting Facilitator/Wood Room Supervisor and Patient. Jaime Rae MD Hospitalist Service, GOLD TEAM [address] [place] [address] Securely message with the [employer] Console (learn more here) Text page via [employer] Paging/Directory Please see signed in provider for [...] from the original note were not included. [facility] Nurse Inpatient Assessment Today's Assessment: Right lateral [...] with vac drape prior to applying sponge central office supervisor to assess integrity of dressing and ensure [...] 19 Lisa Chandler RN, CWOCN Dept. Pager: [phone] Dept. Office Number: [phone] Cali Bullock MD - 07/18/2021 12:44 PM CDT Images from the original note were not included. 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 negativesince then. Confirmed with lab by [...] and worse about [facility]. Also had periodic fever for 1-2 weeks - MRI right ankle wo contrast 06/29/21 - extensive tibiotalar erosions with large joint effusion and synovitis . - 06/30/21 ([facility]) - Right lateral ankle deep abscess [...] subcutaneous tissue without exposed bone. - 07/02/21 ([facility]) - Right lateral ankle I&D, right lateral calcaneus hardware removal and ankle wound vac exchange. With repeat debridement the wound extended down to the bone and the hardware. All 5 screws were removed and plate was removed. The peroneal tendon and calcaneous were exposed, The defect now measured 7x 4 cm with a depth of 2 cm. - 07/04/21 ([facility]) - Right lateral ankle I&D and wound vac replacement. - 07/07/21 ([facility]) - Right ankle I&D and wound [...] VL since then), whot was admitted to [facility] from 06/28/21 - 07/06/21 with sepsis and [...] The patient was then transferred to the [facility] ([facility]) on 07/06/21 for further management due to [...] clinical course Cali Bullock MD Infectious Diseases [phone] Interval events Patient overall feels okay. Wound [...] abuse. ?? The patient was admitted to [facility] from 06/28/04 - 07/06/21 with sepsis and [...] the OR on 06/30/[address] [facility] and had a irrigation and debridement of right lateral ankle abscess and wound vac placement. The patient then returned to the OR on 07/02/21 for a repeat irrigation and debridement, lateralcalcaneus hardware removal, and wound vac exchanged. On 07/04/21, patient returned to OR for repeat I&D and wound vac exchange (see procedures below). The patient was then transferred to the [facility]) on 07/06/21 for further management due [...] I&D and wound vac replacement. - 07/07/21 ([facility] - Right ankle I&D and wound [...] [place]. Future Appointments Date Time Provider Department Dolliver 07/07/2021 7:00 PM UR OT WAITLIST [facility] [place] 07/08/2021 8:00 AM Carmencita Li Pt, PT [facility]PT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 ENGINEERING PROGRAM MANAGER dose if needed # Pressure ulcers R [...] Attending Physician, Dr. Jaime Rae. Rossana Odell [facility] Hospitalist Service, [address] Securely message with the [employer] (learn more here) Text page via [facility] Paging/Directory Please see signed in provider for [...] and tobacco abuse admitted on 07/06/21 from [facility] for further care of R ankle osteomyelitis by Orthopedics, Plastics, and Infectious Disease. Deann is resting in bed. She reports pain in her R ankle that is ongoing. Anxious about plan for continued management. She doesn't remember much from her first 1- 2 days in the hospital at [facility]. She understands that she has an infection [...] So Luciano MD; Location: UR OR ??? DIESEL MAINTENANCE TECHNICIAN SURGERY ??? ORTHOPEDIC SURGERY ??? THORACIC SURGERY [...] 4 MG/0.1ML nasal spray No No Sig: [place] 1 spray (4 mg) into one nostril [...] 3 CBC's:Recent Labs Lab Test 07/06/21 1534 01/11/20211604/01/19 1648 WBC 5.7 4.9 4.0 HGB 10.4* 13.6 15.4 MCV 98 95 97 PLT 243 119* 104* Most Recent 3 BMP's:Recent Labs Lab Test 07/06/21 1534 06/30/21 0714 01/14/20 0640 01/13/20 0742 01/11/202116 NA 136 136 -- -- 140 POTASSIUM [...] 2117 02/28/19 1557 INR 1.39* 1.14 0.92 No results found for this or any previous visit (from the past 24 hour(s)). Associated attestation - Jaime Rae MD - 07/08/2021 2:35 PM CDT Physician Attestation I, Jaime Rae MD, saw and evaluated Deann King as part of a shared ABSTRACT SEARCHER/PA visit. I personally reviewed the vital signs, [...] 2:00 PM CDTAssociated Order(s): DERMATOLOGY IP CONSULT [facility] Inpatient Consult Dermatology Note- Teledermatology Consult [...] not hesitate to contact the dermatology resident/faculty car conditioner for any additional questions or concerns. We will continue to follow. Patient case evaluated with attending physician, Dr. Eden Oneal MD Dermatology Resident I have personally examined this patient and agree with the resident's documentation and plan of care. I have reviewed and amended the resident's note above. The documentation accurately reflects my clinical observations, diagnoses, treatment and follow-up plans. Javon Harmon MD Technical Spec Accounts Payable Technician, Dermatology and Pediatrics [facility] Dermatology Problem List: 1. Urticaria Date of Admission: July 05, 2021 Encounter Date: 07/16/2021 Reason for Consultation: Rash of arms and legs History of Present Illness: 40 year old female with past medical history significant for opioid use disorder, alcohol use disorder, HCV, hypothyroidism, depression, anxiety, and tobacco abuse admitted on 07/06/21 from [facility] for further care of R ankle [...] coma (H) Family history of SIDS (sudden syndrome) History of anomaly in prior , [...] Surgeon: So Luciano MD; Location: UR OR DIESEL MAINTENANCE TECHNICIAN SURGERY IRRIGATION AND DEBRIDEMENT FOOT, COMBINED Right [...] included. [facility] WO Nurse Inpatient Assessment Today's Assessment: [...] with vac drape prior to applying sponge central office supervisor to assess integrity of dressing and ensure [...] Score: 19 Lisa Chandler RN Dept. Pager: [phone] Dept. Office Number: [phone] Clarissa Garcia MD - 07/09/2021 8:56 PM [...] by ID during admission with plan for retirement abx course for osteomyelitis treatment. Currently, patient [...] So Luciano MD; Location: UR OR ??? DIESEL MAINTENANCE TECHNICIAN SURGERY ??? IRRIGATION AND DEBRIDEMENT FOOT, COMBINED [...] to admission Prior opioid abuse Lives in [place] alone, near her mother Not working at [...] wound until then. MD Gilberto Miller Tracey, GENARO - 07/09/2021 8:09 AM CDT Images from the original note were not included. [facility] WO Nurse Inpatient Assessment Today's Assessment: Right buttock/thigh Right ankle being managed by ortho. No consult for vac change - will defer to ortho for care. Patient History (according to provider note(s): Deann King is a 40 year old female??with past medical history significant for opioid use disorder,??alcohol use disorder,??HCV, hypothyroidism, depression, anxiety, and tobacco abuse??admitted on 07/06/21 from [facility] for further care of R ankle [...] to notify the Provider(s) and re-consult the [facility] Nurse if new skin concern. DATA: Current [...] 20 Emily Macias RN CWOCN Dept. Pager: [phone] Leora Oh MD - 07/06/2021 4:17 PM CDTAssociated Order(s): INFECTIOUS DISEASE [facility] ADULT IP CONSULT Images from the original note were not included. 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 - 07/02/21 ([facility]) - Right lateral ankle I&D, right lateral calcaneus hardware removal and ankle wound vac exchange. With repeat debridement the wound extended down to the bone and the hardware. All 5 screws were removed and plate was removed. The peroneal tendon and calcaneous were exposed, The defect now measured 7x 4 cm with a depth of 2 cm. - 07/04/21 ([facility]) - Right lateral ankle I&D and [...] abuse. ?? The patient was admitted to [facility] from 06/28/04 -07/06/21 with sepsis and MSSA [...] The patient was then transferred to the [facility] ([facility]) on 07/06/21 for further management due to [...] grams IV q 8h - I called [facility] today and they informed me that [...] abuse. ?? The patient was admitted to [facility] from 06/28/04 - 07/06/21 with sepsis and [...] the OR on 06/30/[address] [facility] and had a irrigation and debridement of right lateral ankle abscess and wound vac placement. The patient then returned to the OR on 07/02/21 for a repeat irrigation and debridement, lateralcalcaneus hardware removal, and wound vac exchanged. On 07/04/21, patient returned to OR for repeat I&D and wound vac exchange (see procedures below). The patient was then transferred to the [facility] ([facility]) on 07/06/21 for further management due to [...] Other Topics Concern ??? Parent/sibling w/ CABG, [place] or angioplasty before 65F 55M? No Social [...] Thompson MD - 07/06/2021 1:17 PM CDT [facility] Orthopedic Surgery Consultation Deann King Age: [...] exposed bone. The patient was admitted to [facility] from 06/28/04 - 07/06/21 with sepsis and [...] admitted from 06/28 - to 07/06 at [facility] where the patient presented with acute on [...] The patient was then transferred to the [facility] for further management due to exposed peroneal [...] So Luciano MD; Location: UR OR ??? DIESEL MAINTENANCE TECHNICIAN SURGERY ??? ORTHOPEDIC SURGERY ??? THORACIC SURGERY [...] Other Topics Concern ??? Parent/sibling w/ CABG, [place] or angioplasty before 65F 55M? No Social [...] tablet by mouth daily Deann Pina APRN FORESTRY AID TECHNICIAN naloxone (NARCAN) 4 MG/0.1ML nasal spray [place] 1 spray (4 mg) into one nostril [...] daily Dashawn Campos MD Anticoagulation noted: No ENGINEERING PROGRAM MANAGER anticoagulation Physical Exam: Vitals: 07/06/21 1300 BP: [...] documented in this encounter Nursing Notes Tarsha Servin, GENARO - 07/07/2021 7:40 AM CDT Brought pt to PreOp at 0700. Pt left her 4 wedding rings in her room in the top drawer of her bedside table rather than bring them down to the PreOp area. Let Moshe RN bedside nurse on 5 ortho know that is where she left them. documented in this encounter Miscellaneous Notes Pharmacy - Antonella Zarate [facility] - 07/23/2021 3:55 PM CDT Images from the original note were not included. [facility], [facility] Parenteral ANtibiotic Review at Departure from Acute Care Collaborative Note Antimicrobial Stewardship Program - A joint venture between [facility] and Physicians to optimize antibiotic [...] was performed on 07/04. She transferred to [facility] on 07/06 for further management due [...] Recommendations/Additional Information: Please fax laboratory results to [facility] ([phone]), attn: Dr. Kobe Zarate, PharmD, BCIDP Pager: [phone] Vital Signs/Clinical Features: Vitals Report 07/23 0707/24 0659 07/24 0700 07/25 0659 07/25 0700 [...] interval not displayed. Recent Labs Lab Test 01/11/20211606/30/21 0714 07/06/21 1534 07/07/21 1235 07/09/21 1222 [...] hours. Recent Labs Lab Test 04/01/19 1558 01/11/207 05/31/20 1030 07/12/20 1126 07/09/21 1733 URINEPH [...] goal(s). See goals on Care Plan in [facility] electronic health record for goal [...] Additional Info: Plan of Care - Alisa Ceja, GENARO - 07/23/2021 5:05 AM CDT VS: BP [...] vac, BSC, Walker, and pt belongings. Plan: [facility] at 1100 AM today 07/23/21 per [...] Equipment: IV pole/pump, and pt belongings. Plan: [facility] when a bed is available. Additional [...] Activity: TTWB. Independent with stand-pivot transfers to BSC. Ax1 with walker and gait belt for [...] goal(s). See goals on Care Plan in [facility] electronic health record for goal [...] - 07/19/2021 7:27 AM CDT Status Note [id number] Patient A&Ox4, able to make needs known, [...] or Manage Infection Recent Flowsheet Documentation Taken 07/18/2021399 by Corey Delgado RN Isolation Precautions: contact [...] Manage Fall Risk Recent Flowsheet Documentation Taken 07/18/20210 by Corey Delgado RN Safety Promotion/Fall Prevention: activity supervised fall prevention program maintained nonskid shoes/slippers when out of bed Taken 07/17/20212029 by Corey Delgado RN Safety Promotion/Fall Prevention: activity supervised fall prevention program maintained nonskid shoes/slippers when out of bed Intervention: Prevent Skin Injury Recent Flowsheet Documentation Taken 07/18/2021399 by Corey Delgado RN Body Position: position [...] Optimize Anesthesia Recovery Recent Flowsheet Documentation Taken 07/18/2021399 by Corey [...] Oxygenation and Ventilation Recent Flowsheet Documentation Taken 07/18/2021 040 by Corey Delgado RN Head of Bed (HOB) Positioning: HOB at 20-30 degrees Taken 07/18/2021 0200 by Corey Delgado RN Head of Bed (HOB) Positioning: HOB at 20-30 degrees Taken 07/18/2021 by Corey Delgado RN Head of Bed (HOB) Positioning: HOB at 20-30 degrees Taken 07/17/20212029 by Delgado, Corey, RN Head of Bed (HOB) Positioning: HOB [...] 07/15/21 passing gas. Activity: Independent up to BSC pivoting. Up for meals? Sitting up in [...] reach. Pharmacy-Vancomycin Dosing Service - Iker Caldwell [facility] - 07/15/2021 7:40 AM CDT Pharmacy Vancomycin [...] intermittent infusion (mg) 1,500 mg New Bag 05/28/22 2253 1,500 mg New Bag 1044 1,500 mg New Bag 07/13/21 2236 1,500 mg New Bag 1033 1,500 mg New Bag 07/12/21 2159 1,500 mg New Bag 1033 Nephrotoxins and other renal medications (From now, onward) Start Dose/Rate Route Frequency Ordered Stop 07/12/21 0900 piperacillin-tazobactam (ZOSYN) 4.5 g vial to attach to NS 100 mL bag Note to Pharmacy: For [facility], [facility] and [facility]: For Zosyn-naive patients, use the Zosyn initial [...] 07/13/21 passing gas. Activity: Independent up to [facility] pivoting. Up for [...] intermittent infusion (mg) 1,500 mg New Bag 07/12/219 1,500 mg New Bag 1033 1,500 mg New Bag 07/11/21 2138 1,500 mg New Bag 1033 Nephrotoxins and other renal medications (From now, onward) Start Dose/Rate Route Frequency Ordered Stop 07/12/21 0900 piperacillin-tazobactam (ZOSYN) 4.5 g vial to attach to NS 100 mL bag Note to Pharmacy: For [facility], [facility] and [facility]: For Zosyn-naive patients, use the Zosyn [...] update with concerns Additional Info: Plan of Shorty - Jarvis Frank RN - 07/12/2021 11:17 [...] verbal consent to Sintia Swain RN for [facility] staff to speak with mother So Parker [...] Info: Pharmacy-Vancomycin Dosing Service - Lurdes Sierra [facility] - 07/11/2021 10:11 AM CDT Pharmacy Vancomycin [...] but the predicted AUC was 459 @64%. [place] that since patient is younger with good [...] Patient has as bruise to her left acrl. Pain: Patient reports pain of 6 to [...] continue to monitor. Plan of Care - Alcie Whelan RN - 07/08/2021 7:38 PM CDT [...] yet. Last BM: 07/06. Activity: Up to [facility] with assist of one. Skin: Incision/ wound [...] Tinoco MD - 07/07/2021 9:19 AM CDT [facility] Brief Operative Note Pre-operative diagnosis: Ankle [...] a 40-year-old who was previously admitted to [facility] with sepsis and MSSA bacteremia secondary to a right lateral ankle abscess that tracked down to prior calcaneal hardware. She underwent 3 I&D's at [facility] prior to her transfer. Patient was [...] 07/07/2021 7:00 PM UR OT WAITLIST UROT [place] 07/08/2021 8:00 AM Carmencita Li Pt, PT URPT [place] Nathaniel Tinoco MD Orthopaedic Surgery, PGY-4 Plan [...] monitor. Pharmacy-Admission Medication History - Suze Morales, [facility] - 07/06/2021 7:22 PM CDT Admission Medication History Completed by Pharmacy See [facility] Admission Navigator for allergy information, preferred outpatient pharmacy, prior to admission medications and immunization status. Medication History Sources: ??? Pharmacy fill history via [employer] ??? Current medication list from [facility] (pt admitted 06/28-07/06) ??? MANAGER WORKERS COMPENSATION Changes made to ENGINEERING PROGRAM MANAGER medication list (reason): ??? Added: spironolactone, famotidine, lactulose, magnesium oxide, potassium chloride, senna (per [facility] records, these were started while pt in the hospital, doesn't appear she was on these cryptanalyst) ??? Deleted: coenzyme-Q, ibuprofen, multivitamin, omeprazole, ondansetron, Miralax, thiamine, vitamin B complex (old Rx, no fill history) ??? Changed: o Gabapentin 100-200 mg bid + 300 mg hs --> 300 mg hs (per [facility] records, has not filled gabapentin cryptanalyst since 08/16/20) o Venlafaxine XR 150 mg daily --> 300 mg daily (per fill history, [facility] records) Additional Information: ??? Last prescribed dose of buprenorphine was 8 mg SL tid, however per addiction medicine visit notes pt was taking medication differently to make prescription last and using family member's supply at times. At [facility] she was receiving 4 mg SL every 4 hours. Per [place] MANAGER WORKERS COMPENSATION: Buprenorphine 8 mg SL tablet filled 05/04/21, [...] Mckenzie naloxone (NARCAN) 4 MG/0.1ML nasal spray [place] 1 spray (4 mg) into one nostril [...] LDA: L side chest PICC. Placed at [facility]. Plan: Continue with care Additional Info: [...] Visit Wound Care Luis Camara DPM [address] [place] [address] (Wo rk) 01/21/2022 Office Visit Gastroenterology Juanis Mckenzie [address] [place] [address] Luis Fernando Miles MD [address] [facility] [address] [place] [address] documented as of this encounter [...] (ABNORMAL) CRP inflammation (07/23/2021 7:42 AM CDT) [facility] GoBeMe Method Time Signature CRP Inflammation 8.2 (H) [...] City/State/ZIP Code Ph[place] [address] Care Lab [address] [facility], [address] (ABNORMAL) CBC with platelets and differential (07/21/2021 3:12 PM CDT) [facility] GoBeMe Method Time Signature WBC Count 4.4 4.0 [...] Number UR LABORATORY [place] [address] Care Lab [address] [facility], [...] exposure or clinical presentation sugges ts COVID-19. ??[facility] are certified under the Clinical Laborat ory Improvement Amendments of 1988 (CLIA-88) as qualified to perform moderate and/or high complexity laboratory testing. Jaime Rae MD LAB - MICRO GENERAL ORDERABL ES Performing Organization Address City/State/ZIP Code [place] [address] Care Lab [address] [facility], Room [address]309 (ABNORMAL) CRP inflammation (07/19/2021 8:19 AM CDT) [facility] GoBeMe Method Time Signature CRP Inflammation 15.0 (H) [...] City/State/ZIP Code Phon e Number UR LABORATORY [facility] [place] [address] Care Lab [address] [facility], Room [address]309 (ABNORMAL) CBC with platelets (07/19/2021 8:19 AM CDT) [facility] Method Time Signature WBC Count 4.9 [...] City/State/ZIP Code [place] [address] Care [address] [place] [address], Room [address] Extra Purple Top Tube (07/18/2021 7:51 AM CDT) P athologist Signature Hold Specimen JIC 07/18/2021 UR LABORATORY 9:04 AM CDT Specimen Anatomical Collection Method / Collection Time Recei isak Time (Source) Location / Volume Laterality Blood BLOOD SPECIMEN / Venipuncture / 07/18/2021 7:51 2021 7:51 Unknown Unknown AM CDT AM CDT Jaime Rae MD LAB - BLOOD ORDERABLES Performing Organization Address City/[facility]/ZIP Code [place] [address] Care Lab [address] [place] [address], Room [address]309 (ABNORMAL) CRP inflammation (07/18/2021 7:37 [...] City/State/ZIP Code [place] [address] Care [address] [place] [address], [address]309 XR Chest 1 View (07/17/2021 [...] exposure or clinical presentation sugges ts COVID-19. ??[facility] are certified under the Clinical Laborat ory Improvement Amendments of 1988 (CLIA-88) as qualified to perform moderate and/or high complexity laboratory testing. Jaime Rae MD LAB - MICRO GENERAL ORDERABL ES Performing Organization Address City/State/ZIP Code [place] [phone] Care Lab [address] [facility], Room M309 (ABNORMAL) CBC with platelets and differential (07/17/2021 7:36 AM CDT) [facility] gist Method Time Signature WBC Count [...] City/State/ZIP Code [place] [address] Care Lab [address] [facility], Room M309 (ABNORMAL) Comprehensive metabolic panel (07/17/2021 7:36 AM CDT) [facility] Method Time Signature Sodium 139 133 [...] equation which includ es age and gender (Screen Printing Inspector et al., NEJ, DOI: 10.1056/[id number]) Specimen Anatomical Collection Method / Collection Time Recei isak Time (Source) Location / Volume Laterality Blood STRUCTURE OF RIGHT Venipuncture / 07/17/2021 7:36 05/3 02/2021 8:08 HAND / Unknown Unknown AM CDT AM CDT Jensen Ulloa MD LAB - BLOOD ORDERABLES Performing Organization Address City/State/ZIP Code [place] [phone] Care Lab [address] [facility], Room M309 (ABNORMAL) CRP inflammation (07/16/2021 9:08 AM CDT) Patholo gist Method Time Signature CRP Inflammation 33.0 (H) 0.0 - 8.0 07/16/2021 UR LABORATOR Y mg/L 9:30 AM CDT Specimen Anatomical Collection Method / Collection Time Recei isak Time (Source) Location / Volume Laterality Blood ARTERIAL LINE / Venipuncture / 07/16/2021 9:08 07/16/ 022 9:13 Unknown Unknown AM CDT AM CDT Eliud Olivera MD LAB - BLOOD ORDERABLES Performing Organization Address City/State/ZIP Code [place] [phone] Care Lab [address] [facility], Room M309 Creatinine (07/16/2021 8:23 AM CDT) P athologist Signature Creatinine 0.66 0.52 - 1.04 07/16/2021 UR LABORATORY mg/dL 9:01 AM CDT GFR Estimate >90 >60 07/16/2021 UR LABORATORY mL/min/1.73 9:01 AM CDT m2 Comment: Effective February 06, 2021 eGF Rcr in adults is calculated using the 2020 CKD-EPI creatinine equation which includ es age and gender (Paul solis al., [facility], DOI: 10.1056/[id number]) Specimen Anatomical Collection Method / Collection Time Recei isak Time (Source) Location / Volume Laterality Blood STRUCTURE OF RIGHT Venipuncture / 07/16/2021 8:23 05/3 8:31 HAND / Unknown Unknown AM CDT AM CDT Jaime Rae MD LAB - BLOOD ORDERABLES Performing Organization Address City/[facility]/ZIP Code [place] [address] [address] [place] [address], Room M309 Extra Purple Top Tube (07/15/2021 [...] LAB - BLOOD ORDERABLES Performing Organization Address City/[facility] [place] [address] Care [address] [place] [address], Room M309 Creatinine (07/15/2021 6:09 AM CDT) athologist Signature Creatinine 0.64 0.52 - 1.04 07/15/2021 UR LABORATORY mg/dL 7:06 AM CDT GFR Estimate >90 >60 07/15/2021 UR LABORATORY mL/min/1.73 7:06 AM CDT m2 Comment: Effective February 06, 2021 eGF Rcr in adults is calculated using the 2020 CKD-EPI creatinine equation which includ es age and gender (Paul et al., NEJM, DOI: 10.1056/[id number]) Specimen Anatomical Collection Method / Collection Time Recei isak Time (Source) Location / Volume Laterality Blood STRUCTURE OF LEFT Venipuncture / 07/15/2021 6:09 07/15 6:14 HAND / Unknown Unknown AM CDT AM CDT Jaime Rae MD LAB - BLOOD ORDERABLES Performing Organization Address City/[facility]/ZIP [facility] [place] [address] [address] [place] [address], Room M309 Vancomycin level (07/15/2021 6:09 AM CDT) athologist Signature Vancomycin 20.6 mg/L 07/15/2021 7:07 UR LABORATORY AM CDT Specimen Anatomical Collection Method / Collection Time Recei isak Time (Source) Location / Volume Laterality Blood STRUCTURE OF LEFT Venipuncture / 07/15/2021 6:09 07/15 6:14 HAND / Unknown Unknown AM CDT AM CDT Jaime Rae MD LAB - BLOOD ORDERABLES Performing Organization Address City/[facility] [place] [address] [address] [place] [address], Room M309 Creatinine (07/14/2021 5:30 AM CDT) athologist Signature Creatinine 0.62 0.52 - 1.04 07/14/2021 UR LABORATORY mg/dL 6:20 AM CDT GFR Estimate >90 >60 07/14/2021 UR LABORATORY mL/min/1.73 6:20 AM CDT m2 Comment: Effective February 06, 2021 eGF Rcr in adults is calculated using the 2020 CKD-EPI creatinine equation which includ es age and gender (Paul et al., [facility], DOI: 10.1056/[id number]) Specimen Anatomical Collection Method / Collection Time Recei isak Time (Source) Location / Volume Laterality Blood STRUCTURE OF RIGHT Venipuncture / 07/14/2021 5:30 05/2 09/2021 5:52 UPPER LIMB / Unknown AM CDT AM CDT Unknown Jaime Rae MD LAB - BLOOD ORDERABLES Performing Organization Address City/State/ZIP [facility] [place] [address] Care Lab [address] [place] [address], Room M309 (ABNORMAL) CBC with platelets (07/14/2021 5:30 AM CDT) [facility] gist Method Time Signature WBC Count [...] City/State/ZIP Code [place] [address] Care Lab [address] [facility], Room M309 (ABNORMAL) CRP inflammation (07/14/2021 5:30 AM CDT) [facility] gist Method Time Signature CRP Inflammation 40.0 [...] City/State/ZIP Code Phon e Number UR LABORATORY [facility] [place] [address] Care Lab [address] [facility], Room M309 XR Chest 1 View (07/13/2021 [...] platelets and differential (07/13/2021 5:40 AM CDT) [facility] Method Time Signature WBC Count 4.9 [...] City/State/ZIP Code Phon e Number UR LABORATORY [facility] [address] Care Lab 24[address] [facility], Room M309 (ABNORMAL) Comprehensive metabolic panel (07/13/2021 5:40 AM CDT) [facility] Method Time Signature Sodium 139 133 [...] and gender (Paul et al., NE, DOI: 10.1056/[id number]) Specimen Anatomical Collection Method / Collection Time Recei isak Time (Source) Location / Volume Laterality Blood STRUCTURE OF RIGHT Venipuncture / 07/13/2021 5:40 05/08/2021 5:55 HAND / Unknown Unknown AM CDT AM CDT Jensen Ulloa MD LAB - BLOOD ORDERABLES Performing Organization Address City/State/ZIP Code [place] [address] Care Lab [address] [place] [address], Room M309 Vancomycin level (07/13/2021 5:40 AM [...] City/State/ZIP Code [place] [address] [address] [place] [address], Room M309 Blood Culture Line, venous (07/12/2021 [...] Code Phon e Number UU IDD LABORATORY [facility] [place] [address] [facility], Room D297 Blood Culture Arm, Right [...] MICRO GENERAL ORDERABL ES Performing Organization Address City/[facility]/ZIP Code Phon e Number UU IDD LABORATORY [facility] [place] [address] [facility], Room D297 (ABNORMAL) CRP inflammation (07/12/2021 [...] City/State/ZIP Code Phon e Number UR LABORATORY [facility] [place] [address] Care Lab [address] [facility], Room M309 (ABNORMAL) CBC with platelets (07/12/2021 [...] City/State/ZIP Code [place] [address] Care Lab [address] [facility], Room M309 Creatinine (07/12/2021 6:57 AM CDT) P athologist Signature Creatinine 0.57 0.52 - 1.04 07/12/2021 UR LABORATORY mg/dL 7:35 AM CDT GFR Estimate >90 >60 07/12/2021 UR LABORATORY mL/min/1.73 7:35 AM CDT m2 Comment: Effective February 06, 2021 eGF Rcr in adults is calculated using the 2020 CKD-EPI creatinine equation which includ es age and gender (Palu et al., [facility], DOI: 10.1056/[id number]) Specimen Anatomical Collection Method / Collection Time Recei isak Time (Source) Location / Volume Laterality Blood STRUCTURE OF RIGHT Venipuncture / 07/12/2021 6:57 05/2 07/2021 7:04 UPPER LIMB / Unknown AM CDT AM CDT Unknown Jaime Rae MD LAB - BLOOD ORDERABLES Performing Organization Address City/State/ZIP Code Phon e Number UR LABORATORY [facility] [place] [address] Care Lab [address] [facility], Room M309 Fungal or Yeast Culture Routine [...] Code Phon e Number UU IDD LABORATORY [facility] [place] [address] [facility], Room D297 Wound Aerobic Bacterial Culture [...] MICRO GENERAL ORDER JEFFERY Performing Organization Address City/[facility]/ZIP Code Phon e Number UU IDD LABORATORY [facility] [place] [address] [facility], Room D297 (ABNORMAL) Anaerobic Bacterial Culture Routine (07/11/2021 6:18 PM CDT) [facility] gist Method Time Signature Culture No [...] MICRO GENERAL ORDER JEFFERY Performing Organization Address City/[facility]/ZIP Code Phon e Number UU IDD LABORATORY [facility] [place] [address]. [address] [facility], Room D297 Extra Purple Top Tube [...] City/State/ZIP Code Phon e Number UR LABORATORY [facility] [place] [address] Care Lab [address] [facility], Room M309 Creatinine (07/11/2021 9:09 AM CDT) athologist Signature Creatinine 0.58 0.52 - 1.04 07/11/2021 UR LABORATORY mg/dL 9:35 AM CDT GFR Estimate >90 >60 07/11/2021 UR LABORATORY mL/min/1.73 9:35 AM CDT m2 Comment: Effective February 06, 2021 eGF Rcr in adults is calculated using the 2020 CKD-EPI creatinine equation which includ es age and gender (Paul et al., NEJ, DOI: 10.1056/[id number]) Specimen Anatomical Collection Method / Collection Time Recei isak Time (Source) Location / Volume Laterality Blood STRUCTURE OF RIGHT Venipuncture / 07/11/2021 9:09 05/2 06/2021 9:16 UPPER LIMB / Unknown AM CDT AM CDT Unknown Jaime Rae MD LAB - BLOOD ORDERABLES Performing Organization Address City/State/ZIP Code [place] [address] Care Lab [address] [facility], Room M309 (ABNORMAL) CBC with platelets and differential (07/10/2021 7:26 AM CDT) [facility] gist Method Time Signature WBC Count [...] City/State/ZIP Code Phon e Number UR LABORATORY [facility] [place] [phone] Care Lab [address] [facility], Room M309 (ABNORMAL) CRP inflammation (07/10/2021 7:26 AM CDT) [facility] Method Time Signature CRP Inflammation 59.0 (H) 0.0 - 8.0 07/10/2021 UR LABORATOR Y mg/L 8:08 AM CDT Specimen Anatomical Collection Method / Collection Time Recei isak Time (Source) Location / Volume Laterality Blood STRUCTURE OF LEFT Venipuncture / 07/10/2021 7:26 07/10 7:49 HAND / Unknown Unknown AM CDT AM CDT Jensen Ulloa MD LAB - BLOOD ORDERABLES Performing Organization Address City/[facility] [place] [address] Care [address] [place] [address], Room M309 (ABNORMAL) CRP inflammation (07/10/2021 5:25 AM CDT) [facility] Method Time Signature CRP Inflammation 60.0 (H) 0.0 - 8.0 07/10/2021 UR LABORATOR Y mg/L 6:50 AM CDT Specimen Anatomical Collection Method / Collection Time Recei isak Time (Source) Location / Volume Laterality Blood STRUCTURE OF RIGHT Venipuncture / 07/10/2021 5:25 05/2 05/2021 6:17 UPPER LIMB / Unknown AM CDT AM CDT Unknown Jaime Rae MD LAB - BLOOD ORDERABLES Performing Organization Address City/[facility] [place] [address] Care Lab [address] [place] [address], Room M309 (ABNORMAL) CBC with platelets (07/10/2021 5:25 AM CDT) [facility] Method Time Signature WBC Count 8.2 4.0 [...] City/State/ZIP Code [place] [address] Care Lab [address] [facility], Room M309 (ABNORMAL) UA with Microscopic reflex to Culture (07/09/2021 5:33 PM CDT) [facility] Method Time Signature Color Urine Yellow Colorless, 07/09/2021 UR LABORATORY Straw, 7:00 PM CDT Light Yellow, Yellow Appearance Urine Clear Clear 07/09/2021 UR LABORATOR Y 7:00 PM CDT Glucose Urine Negative Negative 07/09/2021 UR LABORATORY mg/dL 7:00 PM CDT Bilirubin Urine Negative Negative 07/09/2021 UR LABORATORY 7:00 PM CDT Ketones Urine Negative Negative 07/09/2021 UR LABORATORY mg/dL 7:00 PM CDT Specific [place] 1.018 1.003 - 07/09/2021 UR LABORATOR Y [...] City/State/ZIP Code Phon e Number UR LABORATORY [facility] [place] [phone] Care Lab [address] [facility], Room M309 Blood Culture Arm, Right (07/09/2021 [...] Code Phon e Number UU IDD LABORATORY [facility] [place] [phone] Diag. Lab [address] [facility], Room D297 Blood Culture Arm, Left (07/09/2021 12:22 PM CDT) P athologist Signature [...] Code Phon e Number UU IDD LABORATORY [facility] [place] [address] [facility], Room D297 (ABNORMAL) CRP inflammation (07/09/2021 [...] LAB - BLOOD ORDERABLES Performing Organization Address City/[facility]/ZIP Code [place] [address] Care Lab [address] [facility], Room M309 ALT (07/09/2021 12:22 PM CDT) [...] City/State/ZIP Code [place] [address] Care Lab [address] [facility], Room M309 (ABNORMAL) Basic metabolic panel (07/09/2021 [...] and gender (Paul et al., NEJM, DOI: 10.1056/[id number]) Specimen Anatomical Collection Method Collection Time Receive d Time (Source) Location / / Volume Laterality Blood STRUCTURE OF LEFT VAD(CVC, PICC) / 07/09/2021 12:22 UPPER LIMB / Unknown PM CDT 12:30 PM CDT Unknown Jaime Rae MD LAB - BLOOD ORDERABLES Performing Organization Address City/State/ZIP Code [place] [address] Care Lab [address] [facility], Room M309 (ABNORMAL) CBC with platelets (07/09/2021 [...] City/State/ZIP Code Phon e Number UR LABORATORY [facility] [place] [address] Care Lab [address] [facility], Room M309 ECHO COMPLETE (07/08/2021 1:04 PM CDT) P athologist Signature LVEF 55-60% CARDIOLOGY RESULTS Anatomical Region Laterality Modality Echocardiography Specimen (Source) Anatomical Collection Method Collection Time Re ceived Time Location / / Volume Laterality 07/08/2021 12:07 PM CDT Narrative 07/08/2021 2:15 PM CDT [id number]^BUTCH^JAIME [facility] Echocardiography Laboratory [address] [place] [address] Name: DEANN KING : 1980 Study Date: 07/08/2021 12:07 PM Age: 40 yrs Gender: Female Patient Location: [facility] Reason For Study: Endocarditis Ordering Physician: [...] is no prior study for direct marti rislaurel. MMode/2D Measurements & Calculations IVSd: 0.84 cm [...] Procedure Note Matheus Jo MD - 07/08/2021 [id number]^BUTCH^JAIME [facility] Echocardiography Laboratory [address] [place] [id number] Name: DEANN KING : 1980 Study Date: 07/08/2021 12:07 PM Age: 40 yrs Gender: Female Patient Location: [facility] Reason For Study: Endocarditis Ordering Physician: [...] CBC with platelets (07/08/2021 7:14 AM CDT) [facility] Method Time Signature WBC Count 7.0 [...] LAB - BLOOD ORDERABLES Performing Organization Address City/[facility]/ZIP [facility] [place] [address] Care [address] [place] [address], Room M309 (ABNORMAL) Erythrocyte sedimentation rate auto [...] LAB - BLOOD ORDERABLES Performing Organization Address City/[facility]/ZIP Code [place] [address] [place] [address] Room [facility] (ABNORMAL) CRP inflammation (07/08/2021 7:14 AM CDT) [...] LAB - BLOOD ORDERABLES Performing Organization Address City/[facility]/ZIP [facility] [place] [address] Care Lab [address] [place] [address], Room M309 US Abdomen Complete (07/07/2021 3:33 [...] Code Phon e Number UU IDD LABORATORY [facility] [place] [address] [facility], Room D297 Blood Culture Line, venous (07/07/2021 12:35 PM CDT) P athologist Signature Culture No Growth 07/12/2021 UU IDD 2:34 PM CDT LABORATORY Specimen Anatomical Collection Method Collection Time Receive d Time (Source) Location / / Volume Laterality Blood VENOUS LINE / VAD(CVC, PICC) / 07/07/2021 12:35 2021 1:01 Unknown Unknown PM CDT PM CDT Nathaniel Tinoco MD LAB - MICRO GENERAL ORDERABL ES Performing Organization Address City/[facility]/ZIP Code Phon e Number UU IDD LABORATORY [facility] [place] [address] [facility], Room D297 (ABNORMAL) Phosphorus (07/07/2021 12:35 PM CDT) athologist Signature Phosphorus 4.8 (H) 2.5 - 4.5 07/07/2021 UR LABORATORY mg/dL 2:13 PM CDT Specimen Anatomical Collection Method Collection Time Receive d Time (Source) Location / / Volume Laterality Blood VENOUS LINE / VAD(CVC, PICC) / 07/07/2021 12:35 2021 1:01 Unknown Unknown PM CDT PM CDT Nathaniel Tinoco MD LAB - BLOOD ORDERABLES Performing Organization Address City/[facility]/ZIP Code [place] [address] Care Lab [address] [place] [address], Room M309 Magnesium (07/07/2021 12:35 PM CDT) athologist Signature Magnesium 2.1 1.6 - 2.3 07/07/2021 UR LABORATORY mg/dL 2:13 PM CDT Specimen Anatomical Collection Method Collection Time Receive d Time (Source) Location / / Volume Laterality Blood VENOUS LINE / VAD(CVC, PICC) / 07/07/2021 12:35 2021 1:01 Unknown Unknown PM CDT PM CDT Nathaniel Tinoco MD LAB - BLOOD ORDERABLES Performing Organization Address City/[facility]/ZIP Code [place] [address] Care Lab [address] [facility], Room M309 (ABNORMAL) CBC with platelets (07/07/2021 12:35 PM CDT) [facility] Method Time Signature WBC Count 8.6 [...] City/State/ZIP Code Phon e Number UR LABORATORY [facility] [place] [address] Care Lab [address] [facility], Room M309 (ABNORMAL) Comprehensive metabolic panel (07/07/2021 12:35 PM CDT) [facility] Method Time Signature Sodium 137 133 [...] and gender (Paul et al., NEJM, DOI: 10.1056/[id number]) Specimen Anatomical Collection Method Collection Time Receive d Time (Source) Location / / Volume Laterality Blood VENOUS LINE / VAD(CVC, PICC) / 07/07/2021 12:35 2021 1:01 Unknown Unknown PM CDT PM CDT Nathaniel Tinoco MD LAB - BLOOD ORDERABLES Performing Organization Address City/State/ZIP Code Phon e Number UR LABORATORY [facility] [place] [address] Care Lab [address] [facility], Room M309 (ABNORMAL) Tissue Aerobic Bacterial Culture Routine (07/07/2021 8:43 AM CDT) [facility] Method Time Signature Culture 1+ Staphylococcus [...] Susceptibility testing requested by Dr. Fraga Pager [phone]. This specimen was received on a swab. [...] Code Phon e Number UU IDD LABORATORY [facility] [place] [address] [address]ag[address] [facility], Room D297 Anaerobic Bacterial Culture Routine (07/07/2021 8:43 AM CDT) [facility] gist Method Time Signature Culture No anaerobic [...] MICRO GENERAL ORDER JEFFERY Performing Organization Address City/[facility] Phon e Number UU IDD LABORATORY [facility] [place] [address] [facility], Room D297 Tissue Aerobic Bacterial Culture Routine [...] MICRO GENERAL ORDER JEFFERY Performing Organization Address City/State/[facility] Phon e Number UU IDD LABORATORY [facility] [place] [address] [facility], Room D297 Anaerobic Bacterial Culture Routine (07/07/2021 8:42 AM CDT) [facility] Signature Culture No anaerobic GINETTE [...] MICRO GENERAL ORDER JEFFERY Performing Organization Address City/[facility] Phon e Number UU IDD LABORATORY [facility] [place] [address] [facility], Room D297 Wound Aerobic Bacterial Culture [...] MICRO GENERAL ORDER JEFFERY Performing Organization Address City/[facility] Phon e Number UU IDD LABORATORY [facility] [place] [address] [facility], Room D297 Anaerobic Bacterial Culture Routine [...] Code Phon e Number UU IDD LABORATORY [facility] [place] [address] [facility], Room D297 Asymptomatic COVID-19 Virus (Coronavirus) [...] exposure or clinical presentation sugges ts COVID-19. ??[facility] are certified under the Clinical Laborat ory Improvement Amendments of 1988 (CLIA-88) as qualified to perform moderate and/or high complexity laboratory testing. Will Mauricio VÁSQUEZ LAB - MICRO GENERAL ORDERABL ES Performing Organization Address City/State/ZIP Code [place] [address] Care Lab [address] [facility], Room M309 Blood Culture Arm, Left (07/06/2021 [...] MICRO GENERAL ORDERABL ES Performing Organization Address City/[facility]/ZIP Code Phon e Number UU IDD LABORATORY [facility] [place] [phone] [facility], Room D297 (ABNORMAL) Iron and iron [...] LAB - BLOOD ORDERABLES Performing Organization Address City/[facility]/ZIP Code [place] [address] Care Lab [address] [facility], Room M309 (ABNORMAL) Hepatitis C RNA, Quantitative by PCR (07/06/2021 3:34 PM CDT) [facility] Method Time Signature Hepatitis C RNA [...] Code Phon e Number UU IDD LABORATORY [facility] [place] [phone] Diag. Lab [address] [facility], Room D297 Adult Type and Screen (07/06/2021 3:34 PM CDT) [facility] [employer] Method Time Signature ABO/RH(D) B POS 07/06/2021 UR BLOOD 2:15 PM CDT BANK Antibody Negative Negative 07/06/2021 UR BLOOD Screen 2:15 PM CDT BANK SPECIMEN [id number] 07/06/2021 UR BLOOD EXPIRATION 2:15 PM CDT BANK DATE Specimen Anatomical Collection Method / Collection Time Recei isak Time (Source) Location / Volume Laterality Blood STRUCTURE OF RIGHT Venipuncture / 07/06/2021 3:34 05/2 4:06 UPPER LIMB / Unknown PM CDT PM CDT Unknown Jah Thompson MD LAB - BLOOD BANK TEST ORDER Performing Organization Address City/State/ZIP Code Phon e Number UR BLOOD BANK [facility] [place] [address] Components Lab [address] [facility], Room M301 (ABNORMAL) Hepatic panel (07/06/2021 3:34 [...] PM CDT PM CDT Unknown Rossana Odell [facility] LAB - BLOOD ORDERABLES Performing Organization Address City/State/ZIP Code Phon e Number UR LABORATORY [facility] [place] [address] Care Lab [address] [facility], Room M309 Blood Culture Arm, Right (07/06/2021 [...] Code Phon e Number [facility] IDD [facility]ORAT[facility] [place] [address] [facility], Room D297 Partial thromboplastin time (07/06/2021 [...] LAB - BLOOD ORDERABLES Performing Organization Address City/[facility]/ZIP Code Ph[place] [address] Care Lab 2450 [facility], Room M309 (ABNORMAL) INR (07/06/2021 3:34 PM CDT) P athologist Signature INR 1.39 (H) 0.85 - 1.15 07/06/2021 UR LABORATORY 4:23 PM CDT Comment: Some International Normalized R atio (INR) results performed at the [facility] Acute Care Lab for patients 6 month [...] City/State/ZIP Code [place] [address] Care [address] [place] [address], Room M309 (ABNORMAL) Erythrocyte sedimentation rate auto (07/06/2021 3:34 PM CDT) [facility] Method Time Signature Erythrocyte 97 (H) 0 [...] City/State/ZIP Code [place] [address] Care Lab [address] [place] [address], Room M309 (ABNORMAL) CRP inflammation (07/06/2021 3:34 PM CDT) [facility] Method Time Signature CRP Inflammation 65.0 (H) [...] City/State/ZIP Code [place] [address] Care Lab [address] [place] [address], Room M309 (ABNORMAL) Basic metabolic panel (07/06/2021 3:34 PM CDT) [facility] Method Time Signature Sodium 136 133 [...] and gender (Paul et al., NEJM, DOI: [id number]) Specimen Anatomical Collection Method / Collection Time Recei isak Time (Source) Location / Volume Laterality Blood STRUCTURE OF RIGHT Venipuncture / 07/06/2021 3:34 / 4:06 UPPER LIMB / Unknown PM CDT PM CDT Unknown Jah Thompson MD LAB - BLOOD ORDERABLES Performing Organization Address City/State/ZIP Code [place] [address] Care Lab 2450 [facility], Room M309 (ABNORMAL) CBC with platelets (07/06/2021 3:34 PM CDT) [facility] gist Method Time Signature WBC Count [...] City/State/ZIP Code [place] [address] Care Lab 2450 [facility], Room M309 documented in this encounter Visit Diagnoses Diagnosis Osteomyelitis of right ankle, unspecifie d type (H) - Primary Osteomyelitis of right ankle, unspecifie d type (H) Anxiety Anxiety state, unspecified Alcohol use disorder, [...] EVERY 6 HOURS PRN, itching, Starting on 07/16/21 at 0941 Given 07/16/2021 7:07 PM CDT [...] mLs 50 mL, Topical, DAILY PRN, moderate pain, Starting on Fri07/20/21 at 0758, Apply to [...] PRN, moderate to severe pain, Starting on Fri07/15/21 at 1233, Start with lower dose. May increase to 10 mg as needed. Notify provider to assess for uncontrolled pain or analgesic side effects. Hold while on KELLY 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 or with regular IV opioid dosing. Given [...] Sims, RN)1316 (Given - Provider: Vin Sims, GENARO)2000 (Given - Provider: Alisa Ceja RN) 08 (Given - Provider: Areli Schwartz RN) 1420 (Given - Provider: Areli Schwartz RN)1929 (Given - Provider: Yani Preciado RN) 0807 (Given - Provider: Andrzej Hodge, GENARO)1401 (Given - Provider: Andrzej Hodge RN) 975 [...] 0807 (Given - Provider: Andrzej Hodge, GENARO) 162 mg, Oral, DAILY, First dose on [...] Sims, GENARO) 0611 (Given - Provider: Alisa Ceja, GENARO)1420 (Given - Provider: Areli Schwartz RN)2241 (Given - Provider: Yani Preciado, GENARO) 0647 (Given - Provider: Alisa Ceja, GENARO) 1401 (Given - Provider: Andrzej Hodge, GENARO) 8 mg, Sublingual, 3 TIMES DAILY, First d ose (after last modification) on Zoe 07/19/21 at 1400, 2pm, 10 pm. 6 am [address]UAL. Place under the tongue and leave until completely dissolved. Patient should 2146 (Given - Provider: Alisa Ceja, GENARO) not swallow or chew tablet. Patient quan uld not eat/drink until tablet is completely dissolved. ceFAZolin (ANCEF) intermittent infusion 2 g in 100 mL dextrose PRE-MIX 0046 (New Bag - Provider: Paulino Ybarra RN)0827 (New Bag - Provider: Vin Sims RN)1504 (New Bag - Provider: Vin Sims, GENARO)2351 (New Bag - Provider: Alisa Ceja RN) 0834 (New Bag - Provider: Jay Boswell)1553 (New Bag - Provider: Yani Preciado, GENARO) 0051 (New Bag - Provider: Paulino Ybarra RN)0819 (New Bag - Provider: Andrzej Hodge RN) Routine, 2 g, Intravenous, EVERY 8 HOURS , First dose on Fri07/18/21 at 1600, Indications: Bone and/or Joint Infection clobetasol (TEMOVATE) 0.05 % ointment 0831 (Given - Pr ovider: Vin Sims, GENARO)2004 (Not Given - Provider: Alisa Ceja RN - Reason: Patient/family refused) 08 (Given - Provider: Areli Schwartz RN) 1932 (Given - Provider: Yani Preciado, GENARO) 08 (Given - Provider: Andrzej Hodge, GENARO) Topical, 2 TIMES DAILY, First dose on Fri07/17/21 at 1999, Apply to arm rash famotidine (PEPCID) tablet 20 mg 0822 (Given - Provide r: Vin Sims, GENARO)2000 (Given - Provider: Ailsa Ceja RN) 829 (Given - Provider: Areli Schwartz RN)1928 (Given - Provider: Yani Preciado, GENARO) 08 [...] 1999 folic acid (FOLVITE) tablet 1 mg 821 (Given - Provider: Norris Sims RN) 829 (Given - Provider: Areli Schwartz RN) 08 [...] at 2200 lactulose (CHRONULAC) solution 20 g 0826 (Not Given - Provider: Vin Sims RN - Reason: Patient/family refused)1958 (Not Given - Provider: Alisa Ceja RN - Reason: Patient/family refused) 0831 (Given - Provider: Areli Schwartz RN) 2242 (Given - Provider: Yani Preciado, GENARO) 0807 (Given - Provider: Andrzej Hodge RN) 20 [...] 0602 (Patch in Place - Provider: Alisa Ceja, RN)1423 (Patch in Place - Provider: Areli Schwartz, GENARO)2243 (Patch in Place - Provider: Yani Preciado RN) 0649 (Patch in Place - Provider: Alisa Ceja, GENARO)1402 (Patch in Place - Provider: Andrzej Hodge RN) First dose on Fri07/18/21 at 1400, Chart every shift, confirming that patch is still in place on patient (no barcode scan needed). See patch order for dose information. polyethylene glycol (MIRALAX) Packet 17 g 0820 (Given - Provider: Vin Sims RN) 0837 (Not Given - Provider: Areli Schwartz RN - Reason: Patient/family refused) 0809 (Not Given - Provider: Andrzej lziama RN - Reason: Patient/family refused) 17 g, [...] 8.6-50 MG per ta blet 2 tablet 0821 (Given - Provider: Vin Sims, RN)2000 (Given - Provider: Alisa Ceja RN) 08 (Given - Provider: Areli Schwartz RN)1928 (Given - Provider: Yani Preciado, GENARO) 08 (Not Given - Provider: Andrzej lizama, GENARO [...] 100 mg 0827 (Given - Provider: Vin Sims, GENARO) 0829 (Given - Provider: Areli Schwartz RN) 0807 (Given - Provider: Andrzej Hodge RN) 100 mg, Oral, DAILY, First dose on Fri07/07/21 at 0800 triamcinolone (KENALOG) 0.1 % ointment 0832 (Given - P rovider: Vin Sims RN)2004 (Not Given - Provider: Alisa Ceja RN - Reason: Patient/family refused) 0839 (Given - Provider: Areli Schwartz RN) 2243 (Not Given - Provider: Yani Preciado, GENARO - Reason: Patient/family refused) 0824 (Not Given - Provider: Andrzej Hodge RN - Reason: Medication not available) Topical, 2 TIMES DAILY, First dose on 07/17/21 at 1999, Apply to other rash areas venlafaxine (EFFEXOR XR) 24 hr capsule 300 mg 0821 (Gi alex - Provider: Vin Sims RN) 0829 (Given - Provider: Areli Schwartz RN) 0807 (Given - Provider: Andrzej Hodge RN) 300 mg, Oral, DAILY, First dose on Fri07/07/21 at 0800 PRN Medication Order 07/21/2021 07/22/2021 07/23/2021 diphenhydrAMINE (BENADRYL) capsule 25 mg 25 mg, Oral, EVERY 6 HOURS PRN, itching, Starting on Fri07/16/21 at 0941 hydrOXYzine (ATARAX) tablet 25-50 mg 0821 (Given - Pro vider: Vin Sims, GENARO)1504 (Given - Provider: Vin Sims, RN) 1300 (Given - Provider: Areli Schwartz, GENARO)1951 (Given - Provider: Yani Preciado RN) 25-50 [...] Group 1) 2150 (Given - Provider: Alisa Ceja, GENARO) 4 [...] 21 51 (See Alternative - Provider: Alisa Ceja, GENARO) 4 mg, Intravenous, EVERY 6 HOURS PRN, na usea, vomiting, Administer over 2-5 Minutes, Starting on Fri07/06/21 at 1400, Give IF patient unable to tolerate oral medication. This is Step 1 of nausea and vom iting management. If nausea not resolved in 15 minutes, go to Step 2 prochlorperazine (COMPAZINE). Irritant. oxyCODONE (ROXICODONE) tablet 5-10 mg 0448 (Given - Pr ovider: Paulino Ybarra, GENARO)1045 (Given - Provider: Vin Sims, RN)1503 (Canceled Entry - Provider: Vin Sims, GENARO)1649 (Given - Provider: Vin Sims, RN)2351 (Given - Provider: Alisa Ceja, GENARO) 0842 (Given - Provider: Areli Schwartz, GENARO) 1635 (Given - Provider: Yani Preciado, GENARO)2241 (Given - Provider: Yani Preciado, GENARO) 0818 (Given - Provider: Andrzej Hodge, GENARO)1401 (Given - Provider: Andrzej Hodge, GENARO) 5-10 mg, Oral, EVERY 6 HOURS PRN, modera te to severe pain, Starting on Fri07/15/21 at 1233, Start with lower dose. May increase to 10 mg as needed. Notify provider to assess for uncontrolled pain or leora lgesic side effects. Hold while on KELLY 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 or with regular IV opioid dosing. polyethylene [...] mL 10-40 mL, Intracatheter, EVERY 1 HOUR GA N, other, to lock EACH CVC - Valved (Tunneled and Non-Tunneled) dormant lumen(s), Starting on Fri07/06/21 at 1722, Max dose: 10 mL for each lumen Sodium chloride 0.9% 10 mL for each lumen to flush line and lock the lumen. sodium chloride 0.9% (bottle) irrigation PRN, Starting on Fri07/07/21 at 0945, Intra-procedure Linked Groups Order Group [...] as of this encounter Care Teams Chief Information Officer Relationship Specialty Start Date End Date Juanis Mckenzie PCP - General Addiction Medicine 06/29/21 [facility] [place] [address] Deann Pina APRN FORESTRY AID TECHNICIAN Assigned PCP 02/25/[address] [place] [address] documented as of this encounter
--- OUTSIDE RECORDS SUMMARY | 2021-11-28 13:41 | XMS_ITS | Encounter Summary ---
:1980 Author Organization [place] Address [address] [facility] [place] [address] Care Team Providers Name Role Phone Stephani Pina BUYER AGENT ASSEMBLER GOLD FRAME Unavailable [phone] Juanis Levi Primary Care Provider Elsa Yeh RN Unavailable Unavailable Encounter Details Date Type Department Care Team Description 07/11/2021 Telephone [facility] Medical Office [address] [facility] [address] [place] [address] Suite [facility] [phone] [place] [address] Social History Tobacco Use Types Packs/Day Years Used Date Smoking Tobacco: Every Day Cigarettes 0.3 10 Smokeless Tobacco: Never Comments: 5-8 cigarettes a day Alcohol Use Standard Drinks/Week Comments Not Currently 0 (1 standard drink = 0.6 oz pure alcoho l) sober since 08/2020 Sex Assigned at Date Recorded Female 01/14/2020 10:57 AM PUNCH HAND COVID-19 Exposure Response Date Recorded In [...] 07/11/2021 4:18 PM CDT Consult received via Epic from Dr. Treadwell for wound of the right ankle Patient has history of smoking. Per Standing Order patient qualifies for NIKHIL to be scheduled prior to assessment with providers Sebastian Mcknight Bohm, Cadieux or [facility] for next available appointment. Is patient a TAYO lift? Assistant Construction Superintendent to inquire Routing to recruiting coordinator Ann Marie Eckert. Orders pending. Telephone Encounter - La Nena Rowe RN - 07/11/2021 4:18 PM CDT Marilynn Harrison RN P Wound Healing Nurse Lisa, Can you please assist with getting this patient scheduled with one of the wound care center providers? It can be any of the wound care providers, or Dr. Feliz/Dr. Rocha. We do not manage these types of wounds in [place] and do not do wound vac dressing changes in clinic. Thank you, Marilynn Harrison RN documented in this encounter Plan of Treatment Upcoming Encounters Date Type Specialty Care Team Description 11/29/2021 Office Visit Wound Care Luis Camara DPM [address] [place] [address] (Wo rk) 01/21/2022 Office Visit Gastroenterology Juanis Levi [address] [place] [address] Luis Fernando Miles MD [address] [address] documented as of this encounter Visit Diagnoses Diagnosis Leg ulcer, right, with unspecified sever ity (H) - Primary documented in this encounter Additional Health Concerns Infection Onset Date Last Indicated Resolved Time MRSAComment: Added from external infection. 11/07/2014 05/02/2021 Assessment Noted Time PHQ-9 Depression Total Score: 2 12/15/2020 1:07 PM CDT documented as of this encounter Care Teams Jig Bore Operator Relationship Specialty Start Date End Date Juanis Levi PCP - General Addiction Medicine 06/29/21 [address] [place] [phone] Stephani Pina, FARZANA ASSEMBLER GOLD FRAME Assigned PCP 02/25/21 [address] [place] [address] Elsa Yeh, RN Registered Nurse Infectious Diseases 07/25/21 documented as of this encounter
--- OUTSIDE RECORDS SUMMARY | 2021-11-28 13:41 | XMS_ITS | Encounter Summary ---
:1980 Author Organization [place] Address [address] [place] [address] Care Team Providers Name Role Phone Stepahni Pina APRN SUBSTANCE ABUSE SPECIALIST Unavailable [phone] Juanis Levi Primary Care Provider Encounter Details Date Type Department Care Team Description 07/19/[address] [facility] Unkno wn [place] [address] [place] [address] [address] [place], [place] [phone] Social History Tobacco Use Types Packs/Day Years Used Date Smoking Tobacco: Every Day Cigarettes 0.3 10 Smokeless Tobacco: Never Comments: 5-8 cigarettes a day Alcohol Use Standard Drinks/Week Comments Not Currently 0 (1 standard drink = 0.6 oz pure alcoho l) sober since 08/2020 Sex Assigned at Date Recorded Female 01/14/2020 10:57 AM OPEN HEARTH WORKER documented as of this encounter Miscellaneous Notes Telephone Encounter - Rossana Carroll - 07/19/2021 12:53 PM CDT 07/19-Patient is currently inpatient, will call tomorrow to get her scheduled.-LN documented in this encounter Plan of Treatment Upcoming Encounters Date Type Specialty Care Team Description 11/29/2021 Office Visit Wound Care Luis Camara, CALVIN [address] [place] [address] (Wo rk) 01/21/2022 Office Visit Gastroenterology Juanis Levi [address] [place] [phone] Luis Fernando Miles MD [address] [facility] [place], [place] [address] documented as of this encounter Visit Diagnoses Not on filedocumented in this encounter Additional Health Concerns Infection Onset Date Last Indicated Resolved Time MRSAComment: Added from external infection. 11/07/201406/18 Assessment Noted Time PHQ-9 Depression Total Score: 2 12/15/2020 1:07 PM CDT documented as of this encounter Care Teams Overhead Crane Inspector Relationship Specialty Start Date End Date Juanis Levi PCP - General Addiction Medicine 06/29/21 [address] [place] [phone] Stephani Pina APRN SUBSTANCE ABUSE SPECIALIST Assigned PCP 02/25/[address] [place], [place] [address] documented as of this encounter
--- OUTSIDE RECORDS SUMMARY | 2021-11-28 13:42 | XMS_ITS | Encounter Summary ---
:1980 Author Organization [place] Address [address] [facility] [place] [address] Care Team Providers Name Role Phone Clinic, [facility] Primary Care Provide r Stephani Pina Kim LEON FAITH DOCTOR Unavailable Encounter Details Date Type Department Care [...] at Date Recorded Female 01/14/2020 10:57 AM SHOW OPERATIONS SUPERVISOR COVID-19 Exposure Response Date Recorded In the last month, have you been in contact with No / Unsure 03/05/2021 9:18 AM SHOW OPERATIONS SUPERVISOR someone who was confirmed or suspected to have Coronavirus / COVID-19? documented as of this encounter Plan of Treatment Upcoming Encounters Date Type Specialty Care Team Description 11/29/2021 Office Visit Wound Care Luis Camara DPM [address] [place] [address] (Wo rk) 01/21/2022 Office Visit Gastroenterology Juanis Levi [address] [place] [address] Luis Fernando Miles MD [address] [facility] [address] [place], [place] [address] documented as of this encounter Visit Diagnoses Not on filedocumented in this encounter Additional Health Concerns Assessment Noted Time PHQ-9 Depression Total Score: 2 12/15/2020 1:07 PM CDT documented as of this encounter Care Teams Gas Cutter Relationship Specialty Start Date End Date Clinic, [facility] PCP - General 01/20/18 06/28/21 [address] [place] [address] Stephani Pina APRN FAITH DOCTOR Assigned PCP 02/25/21 [address] [facility] [address] [place] [address] documented as of this encounter
--- OUTSIDE RECORDS SUMMARY | 2021-11-28 13:42 | XMS_ITS | Encounter Summary ---
:1980 Author Organization [place] Address [facility] [place] [address] Care Team Providers Name Role Phone Clinic, [facility] Primary Care Provide r YovaniStephani APRN QA INTERNSHIP Unavailable Encounter Details Date Type Department Care Team Description 06/21/2020 Telephone [facility] Generic, Behavioral Behavioral Health In abigail Rivera MD [address] [place] [address] Social History Tobacco Use Types Packs/Day Years Used Date Smoking Tobacco: Every Day Cigarettes 0.3 10 Smokeless Tobacco: Never Comments: 5-8 cigarettes a day Alcohol Use Standard Drinks/Week Comments Not Currently 0 (1 standard drink = 0.6 oz pure drinki ng a pint of vodka daily alcohol) Sex Assigned at Date Recorded Female 01/14/2020 10:57 AM LINUX NETWORK ADMINISTRATOR COVID-19 Exposure Response Date Recorded In the last month, have you been in contact with No / Unsure 07/12/2020 11:10 AM CDT someone who was confirmed or suspected to have Coronavirus / COVID-19? documented as of this encounter Miscellaneous Notes Telephone Encounter - Brittnee Lainez - 06/21/2020 7:45 AM CDT ----- Message from OLGA Deshpande sent at 06/20/2020 4:37 PM CDT ----- Regarding: Add appointments for client at [facility] Patient Name: ??See above Location of programming: [facility] Start Date: 06/20/20 Group: ([id number] T 5:30PM Provider: OLGA Baron Number of visits to be scheduled: 4 Length/Duration of Appointment in minutes: 120 Visit Type (VIDEO/TELEPHONE/IN-PERSON): Video ([id number]) Additional notes: Thanks OLGA Baron documented in this encounter Plan of Treatment Upcoming Encounters Date Type Specialty Care Team Description 11/29/2021 Office Visit Wound Care Luis Camara DPM [address] [facility] [address] [place], [place] [phone] (Wo rk) 01/21/2022 Office Visit Gastroenterology Juanis Levi [address] [place] [phone] Luis Fernando Miles MD [address] [facility] [address] [place], [place] [address] documented as of this encounter Visit Diagnoses Diagnosis Alcohol abuse, continuous - Primary Nondependent alcohol abuse, continuous d rinking behavior documented in this encounter Additional Health Concerns Assessment Noted Time PHQ-9 Depression Total Score: 6 12/27/2019 9:38 AM LINUX NETWORK ADMINISTRATOR documented as of this encounter Care Teams Dog Trainer Relationship Specialty Start Date End Date Clinic, [facility] PCP - General 01/20/18 06/28/[address] [place] [address] Stephani Pina APRN QA INTERNSHIP Assigned PCP 01/30/20 12/30/20 [address] [facility] [address] [place], [place] [address] documented as of this encounter
--- OUTSIDE RECORDS SUMMARY | 2021-11-28 13:42 | XMS_ITS | Encounter Summary ---
:1980 Author Organization [place] Address [address] [facility] [place] [address] Care Team Providers Name Role Phone Clinic, [facility] Primary Care Provide r Stephani Pina APRN SUPERVISOR SINTERING PLANT Unavailable [phone] Juanis Levi Primary Care Provider Elsa Yeh RN Unavailable Unavailable Rogelio Treadwell MD Unavailable [phone] Luis Camara DPM Unavailable [phone] Camryn Christina MD Unavailable Sintia Lange PA-C Unavailable Luis Fernando Miles MD Unavailable [phone] Encounter Details Date Type Department Care Team Description 02/27/2021 Telephone [facility] Nithya Alfredo MD [place] [address] [place] [address] [place] [address] [place] [phone] Social History Tobacco Use Types Packs/Day Years Used Date Smoking Tobacco: Every Day Cigarettes 0.3 10 Smokeless Tobacco: Never Comments: 5-8 cigarettes a day Alcohol Use Standard Drinks/Week Comments Not Currently 0 (1 standard drink = 0.6 oz pure alcoho l) sober since 08/2020 Sex Assigned at Date Recorded Female 01/14/2020 10:57 AM CHILD CARE TEAM LEAD documented as of this encounter Miscellaneous Notes [...] sick with Covid. Patient will end back [email or web address] message as needed. Rn also gave patient the contact number to call triage back as needed. D CARE TEAM LEAD Telephone Encounter - Lurdes Lucas - 02/27/2021 1:55 PM CST Pt reports she missed her appt this morning because she and her family are sick with COVID. Appt wasrescheduled, but she asked for a bridge of her medications until then. D CARE TEAM LEAD documented in this encounter Plan of Treatment Upcoming Encounters Date Type Specialty Care Team Description 11/29/2021 Office Visit Wound Care Luis Camara DPM [address] [place] [address] (Wo rk) 01/21/2022 Office Visit Gastroenterology Juanis Levi [address] [place] [address] Luis Fernando Miles MD [address] [facility] [address] [place], [place] [address] documented as of this encounter Visit Diagnoses Not on filedocumented in this encounter Additional Health Concerns Infection Onset Date Last Indicated Resolved Time MRSAComment: Added from external infection. 11/07/201406/18 Assessment Noted Time PHQ-9 Depression Total Score: 2 12/15/2020 1:07 PM CDT documented as of this encounter Care Teams Personal Financial Planner Relationship Specialty Start Date End Date Clinic, [facility] PCP - General 01/20/[address] [id number] Juanis Levi PCP - General Addiction Medicine 06/29/21 [address] [facility] [place] [address] Stephani Pina, Assigned PCP 02/25/21 RN X RAY SUPERVISOR SINTERING PLANT [address] [place] [address] Elsa Yeh, Registered Nurse Infectious Diseases 07/25/21 RN Rogelio Treadwell Assigned Musculoskeletal 08/04/21 MD August Provider [address] [place], [place] [phone] Luis Camara MD Podiatry 08/16/21 CALVIN Burnett [address] [place], [place] [address] Camryn Christina Assigned Surgical 09/01/21 09/07/21 MD Lexie Provider [address] [facility] 195 [place], [place] [address] Sintia Lange PA-C Assigned Surgical 09/08/21 909 [facility] [address] Provider FLOOR [place], [place] [address] Landon Warren MD Gastroenterology 11/21/21 MD Luis Fernando 516 [facility] [address] [address] [place], [place] [address] documented as of this encounter
--- OUTSIDE RECORDS SUMMARY | 2021-11-28 13:42 | XMS_ITS | Encounter Summary ---
:1980 Author Organization [place] Address [address] [facility] [place] [address] Care Team Providers Name Role Phone Clinic, [facility] Primary Care Provide r Guerita Haasdia Sanju TUBING TESTER CONFERENCE PLANNER Unavailable [phone] Reason for Visit Reason Onset Date Comments Medication Request 02/12/2021 subutex Encounter Details Date Type Department Care Team Description 02/12/2021 Telephone [facility] Edgar Alfredo, [facility] ication Request Clinic Ashly VÁSQUEZ (subutex) [address] [place] [address] [place] [phone] (Wo rk) Social History Tobacco Use Types Packs/Day Years Used Date Smoking Tobacco: Every Day Cigarettes 0.3 10 Smokeless Tobacco: Never Comments: 5-8 cigarettes a day Alcohol Use Standard Drinks/Week Comments Not Currently 0 (1 standard drink = 0.6 oz pure alcoho l) sober since 08/2020 Sex Assigned at Date Recorded Female 01/14/2020 10:57 AM DATA QUALITY CONSULTANT COVID-19 Exposure Response Date Recorded In the last month, have you been in contact with No / Unsure 01/15/2021 1:15 PM DATA QUALITY CONSULTANT someone who was confirmed or suspected to have Coronavirus / COVID-19? documented as of this encounter Miscellaneous Notes Telephone Encounter - Juanjose Parham - 02/12/2021 12:44 PM CST Reason for Call: Medication Request due to: missed appointment Name of the pharmacy and phone number for the current request: [id number] - [place] -[id number] ALUMINUM HYDROXIDE PROCESS OPERATOR [address] Request for bridge of: Subutex [...] Phone number patient can be reached at: [phone] Best Time: Any QUALITY CONSULTANT documented in this encounter Plan of Treatment Upcoming Encounters Date Type Specialty Care Team Description 11/29/2021 Office Visit Wound Care Luis Camara DPM [address] [place] [address] (Wo rk) 01/21/2022 Office Visit Gastroenterology Juanis Levi [address] [place] [phone] Luis Fernando Miles MD [address] [id number] documented as of this encounter Visit Diagnoses Diagnosis Opioid use disorder, severe, in sustaine d remission, on maintenance therapy (H) documented in this encounter Additional Health Concerns Assessment Noted Time PHQ-9 Depression Total Score: 2 12/15/2020 1:07 PM CDT documented as of this encounter Care Teams Loading Supervisor Relationship Specialty Start Date End Date Clinic, [facility] PCP - General 01/20/18 06/28/21 [address] [place] [address] Tatyana Haas APRN CONFERENCE PLANNER Assigned PCP 12/31/20 02/24/21 [facility] [address] [facility] [address] [place], [place] [address] documented as of this encounter
--- OUTSIDE RECORDS SUMMARY | 2021-11-28 13:42 | XMS_ITS | Encounter Summary ---
:1980 Author Organization [place] Address [address] [facility] [place] [address] Care Team Providers Name Role Phone Clinic, [facility] Primary Care Provide r Stephani Pina Kim YANES BOTTOM SCRUBBER Unavailable Encounter Details Date Type Department Care Team Description 01/31/2020 Travel Social History Tobacco Use Types Packs/Day Years Used Date Smoking Tobacco: Every Day Cigarettes 0.3 10 Smokeless Tobacco: Never Comments: 5-8 cigarettes a day Alcohol Use Standard Drinks/Week Comments Yes 0 (1 standard drink = 0.6 oz pure alcoho l) drinking a pint of vodka daily Sex Assigned at Date Recorded Female 01/14/2020 10:57 AM FACTORY CLERK COVID-19 Exposure Response Date Recorded In the last month, have you been in contact with No / Unsure 01/31/2020 9:14 AM FACTORY CLERK someone who was confirmed or suspected to have Coronavirus / COVID-19? documented as of this encounter Plan of Treatment Upcoming Encounters Date Type Specialty Care Team Description 11/29/2021 Office Visit Wound Care Luis Camara DPM [address] [place] [address] (Wo rk) 01/21/2022 Office Visit Gastroenterology Juanis Levi [address] [place] [address] Luis Fernando Miles MD 516 [facility] [address] [place], [place] [phone] documented as of this encounter Visit Diagnoses Not on filedocumented in this encounter Additional Health Concerns Assessment Noted Time PHQ-9 Depression Total Score: 6 12/27/2019 9:38 AM FACTORY CLERK documented as of this encounter Care Teams Corporate Operations Compliance Manager Relationship Specialty Start Date End Date Clinic, [facility] PCP - General 01/20/18 06/28/[address] [place] [phone] Stephani Pina APRN BOTTOM SCRUBBER Assigned PCP 01/30/20 12/30/20 [facility] [address] [place], [place] [address] documented as of this encounter
--- OUTSIDE RECORDS SUMMARY | 2021-11-28 13:42 | XMS_ITS | Encounter Summary ---
:1980 Author Organization [place] Address [address] [facility] [place] [address] Care Team Providers Name Role Phone Clinic, [facility] Primary Care Provide r Stephani Pina Kim LEON CUTTER APPRENTICE HAND Unavailable [phone] Encounter Details Date Type Department Care [...] Date Recorded Female 01/14/2020 10:57 AM SUPERVISOR FUSING ROOM COVID-19 Exposure Response Date Recorded In the last month, have you been in contact with No / Unsure 03/29/2020 2:20 PM SUPERVISOR FUSING ROOM someone who was confirmed or suspected to have Coronavirus / COVID-19? documented as of this encounter Plan of Treatment Upcoming Encounters Date Type Specialty Care Team Description 11/29/2021 Office Visit Wound Care Luis Camara DPM 909 [place] [address] (Wo rk) 01/21/2022 Office Visit Gastroenterology Juanis Levi [address] [place] [address] Luis Fernando Miles MD 516 [facility] [address] [place], [place] [address] documented as of this encounter Visit Diagnoses Not on filedocumented in this encounter Additional Health Concerns Assessment Noted Time PHQ-9 Depression Total Score: 6 12/27/2019 9:38 AM SUPERVISOR FUSING ROOM documented as of this encounter Care Teams Rural Service Engineer Relationship Specialty Start Date End Date Clinic, [facility] PCP - General 01/20/18 06/28/21 [address] [place] [address] Stephani Pina APRN CUTTER APPRENTICE HAND Assigned PCP 01/30/20 12/30/20 [facility] 700 [place], [place] [address] documented as of this encounter
--- OUTSIDE RECORDS SUMMARY | 2021-11-28 13:42 | XMS_ITS | Encounter Summary ---
:1980 Author Organization [place] Address [address] [place] [address] Care Team Providers Name Role Phone Clinic, [facility] Primary Care Provide r YovaniStephani APRN MEDICAL ASSISTANT SUPERVISOR Unavailable [phone] Reason for Visit Reason Onset Date Comments Erroneous encounter-disregard 08/25/2020 Encounter Details Date Type Department Care Team Description 08/23/2020 Virtual Visit [facility] Inocencio Newberry ERRONEOUS Hepatology Clinic JIMBO Jesus ENCOUNTER--DISREGARD [address] (Primary Dx) [address] [place] [phone] Social History Tobacco Use Types Packs/Day Years Used Date Smoking Tobacco: Every Day Cigarettes 0.3 10 Smokeless Tobacco: Never Comments: 5-8 cigarettes a day Alcohol Use Standard Drinks/Week Comments Not Currently 0 (1 standard drink = 0.6 oz pure drinki ng a pint of vodka daily alcohol) Sex Assigned at Date Recorded Female 01/14/2020 10:57 AM MILITARY LAWYER COVID-19 Exposure Response Date Recorded In the [...] Visit Wound Care Luis Camara DPM [address] [facility] [place] [address] (Wo rk) 01/21/2022 Office Visit Gastroenterology Juanis Levi [address] [place] [phone] Luis Fernando Miles MD 516 [facility] [address] [place], [place] [address] documented as of this encounter Visit Diagnoses Diagnosis ERRONEOUS ENCOUNTER--DISREGARD - Primary documented in this encounter Additional Health Concerns Assessment Noted Time PHQ-9 Depression Total Score: 6 12/27/2019 9:38 AM MILITARY LAWYER documented as of this encounter Care Teams Automation And Controls Manager Relationship Specialty Start Date End Date Clinic, [facility] PCP - General 01/20/18 06/28/21 [address] [place], [place] [phone] Stephani Pina APRN MEDICAL ASSISTANT SUPERVISOR Assigned PCP 01/30/20 12/30/[address] [place] [place] [address] documented as of this encounter
--- OUTSIDE RECORDS SUMMARY | 2021-11-28 13:42 | XMS_ITS | Encounter Summary ---
:1980 Author Organization [place] Address [address] [facility] [place] [address] Care Team Providers Name Role Phone Clinic, [facility] Primary Care Provide r Guerita Haasherb Bills E LEARNING DEVELOPER ENGINEER GAS PUMPING STATION Unavailable [phone] Encounter Details Date Type Department Care Team Description 02/12/2021 Office Visit [facility] Edgar Alfredoplic ated opioid Clinic Ashly Gauthier MD dependence (H) (Primary [address] Dx) [address] [place] [address] [place] [phone] Social History Tobacco Use Types Packs/Day Years Used Date Smoking Tobacco: Every Day Cigarettes 0.3 10 Smokeless Tobacco: Never Comments: 5-8 cigarettes a day Alcohol Use Standard Drinks/Week Comments Not Currently 0 (1 standard drink = 0.6 oz pure alcoho l) sober since 08/2020 Sex Assigned at Date Recorded Female 01/14/2020 10:57 AM SAND SCREENER COVID-19 Exposure Response Date Recorded In the last month, have you been in contact with No / Unsure 01/15/2021 1:15 PM SAND SCREENER someone who was confirmed or suspected to have Coronavirus / COVID-19? documented as of this encounter Progress Notes Edgar Alfredo MD - 02/12/2021 10:40 AM CST NO SHOW SCREENER documented in this encounter Plan of Treatment Upcoming Encounters Date Type Specialty Care Team Description 11/29/2021 Office Visit Wound Care Luis Camara, [place] [address] [place], [place] [address] (Wo rk) 01/21/2022 Office Visit Gastroenterology Juanis Levi [address] [place] [phone] Luis Fernando Miles MD 516 [facility] [address] [place], [place] [address] documented as of this encounter Visit Diagnoses Diagnosis Uncomplicated opioid dependence (H) - Pr imary Opioid type dependence, unspecified documented in this encounter Additional Health Concerns Assessment Noted Time PHQ-9 Depression Total Score: 2 12/15/2020 1:07 PM CDT documented as of this encounter Care Teams Buildings And Grounds Superintendent Relationship Specialty Start Date End Date Clinic, [facility] PCP - General 01/20/18 06/28/[address] [place] [address] Tatyana Haas APRN ENGINEER GAS PUMPING STATION Assigned PCP 12/31/20 02/24/21 [facility] [address] [facility] [place] [place] [address] documented as of this encounter
--- OUTSIDE RECORDS SUMMARY | 2021-11-28 13:42 | XMS_ITS | Encounter Summary ---
:1980 Author Organization [place] Address [address] [facility] [place] [address] Care Team Providers Name Role Phone Clinic, [facility] Primary Care Provide r Stephani Pina Kim LEON STRUCTURAL WELDER Unavailable [phone] Encounter Details Date Type Department Care [...] at Date Recorded Female 01/14/2020 10:57 AM GRAPHICS EDIT TECHNICIAN COVID-19 Exposure Response Date Recorded In the last month, have you been in contact with No / Unsure 10/25/2020 10:49 AM CDT someone who was confirmed or suspected to have Coronavirus / COVID-19? documented as of this encounter Plan of Treatment Upcoming Encounters Date Type Specialty Care Team Description 11/29/2021 Office Visit Wound Care Luis Camara DPM 909 [place] [address] (Wo rk) 01/21/2022 Office Visit Gastroenterology Juanis Levi 2450 [place] [phone] Luis Fernando Miles MD 516 [facility] [address] [place], [place] [address] documented as of this encounter Visit Diagnoses Not on filedocumented in this encounter Additional Health Concerns Assessment Noted Time PHQ-9 Depression Total Score: 6 12/27/2019 9:38 AM GRAPHICS EDIT TECHNICIAN documented as of this encounter Care Teams Court Manager Relationship Specialty Start Date End Date Clinic, [facility] PCP - General 01/20/18 06/28/21 4[address] [place] [address] Stephani Pina APRN STRUCTURAL WELDER Assigned PCP 01/30/20 12/30/20 [address] [facility] 700 [place], [place] [address] documented as of this encounter
--- OUTSIDE RECORDS SUMMARY | 2021-11-28 13:42 | XMS_ITS | Encounter Summary ---
:1980 Author Organization [place] Address [address] [facility] [place] [address] Care Team Providers Name Role Phone Clinic, [facility] Primary Care Provide r Stephani Pina RN ADVANCED BUSINESS ANALYSIS CONSULTANT Unavailable [phone] Encounter Details Date Type Department Care Team Description 03/12/[address] [facility] Edgar Alfredo us e disorder, Clinic Ashly Gauthier MD severe, in sustained [address] [place] remission, on [address] 700 maintenance therapy [place], [place] (H) (Prim jaime Dx) [phone] Social History Tobacco Use Types Packs/Day Years Used Date Smoking Tobacco: Every Day Cigarettes 0.3 10 Smokeless Tobacco: Never Comments: 5-8 cigarettes a day Alcohol Use Standard Drinks/Week Comments Not Currently 0 (1 standard drink = 0.6 oz pure alcoho l) sober since 08/2020 Sex Assigned at Date Recorded Female 01/14/2020 10:57 AM CLIENT INTEGRATION MANAGER COVID-19 Exposure Response Date Recorded In the last month, have you been in contact with No / Unsure 03/05/2021 9:18 AM CLIENT INTEGRATION MANAGER someone who was confirmed or suspected to have Coronavirus / COVID-19? documented as of this encounter Progress Notes Edgar Alfredo MD - 03/12/2021 9:20 AM CST NO SHOW NT INTEGRATION MANAGER documented in this encounter Plan of Treatment Upcoming Encounters Date Type Specialty Care Team Description 11/29/2021 Office Visit Wound Care Hoa Luislaurel Burnett, DPM [address] [facility] [place], [place] [phone] (Wo rk) 01/21/2022 Office Visit Gastroenterology Juanis Levi [address] [place] [address] Luis Fernando Miles MD [address] [facility] [place], [place] [address] documented as of this encounter Visit Diagnoses Diagnosis Opioid use disorder, severe, in sustaine d remission, on maintenance therapy (H) - Primary documented in this encounter Additional Health Concerns Assessment Noted Time PHQ-9 Depression Total Score: 2 12/15/2020 1:07 PM CDT documented as of this encounter Care Teams Turret Lathe Set Up Operator Relationship Specialty Start Date End Date Clinic, [facility] PCP - General 01/20/18 06/28/[address] [place] [phone] Stephani Pina APRN BUSINESS ANALYSIS CONSULTANT Assigned PCP 02/25/[address] [place] [place], [place] [address] documented as of this encounter
--- OUTSIDE RECORDS SUMMARY | 2021-11-28 13:42 | XMS_ITS | Encounter Summary ---
:1980 Author Organization [place] Address [address] [place] [address] Care Team Providers Name Role Phone Clinic, [facility] Primary Care Provide r YovaniStephani APRN LOAN UNDERWRITER Unavailable Encounter Details Date Type Department Care [...] at Date Recorded Female 01/14/2020 10:57 AM HOTEL OR MOTEL ROOM SERVICE SUPERVISOR COVID-19 Exposure Response Date Recorded In the last month, have you been in contact with No / Unsure 07/12/2020 11:10 AM CDT someone who was confirmed or suspected to have Coronavirus / COVID-19? documented as of this encounter Plan of Treatment Upcoming Encounters Date Type Specialty Care Team Description 11/29/2021 Office Visit Wound Care Luis Camara DPM 909 [place], [place] [phone] (Wo rk) 01/21/2022 Office Visit Gastroenterology Juanis Levi 2450 [place] [phone] Luis Fernando Miles MD 516 [facility] [address] [place], [place] [address] documented as of this encounter Visit Diagnoses Not on filedocumented in this encounter Additional Health Concerns Assessment Noted Time PHQ-9 Depression Total Score: 6 12/27/2019 9:38 AM HOTEL OR MOTEL ROOM SERVICE SUPERVISOR documented as of this encounter Care Teams Commercial Loan Processor Relationship Specialty Start Date End Date Clinic, [facility] PCP - General 01/20/18 06/28/[address] [place] [address] Stephani Pina APRN LOAN UNDERWRITER Assigned PCP 01/30/20 12/30/20 [facility] 700 [place], [place] [address] documented as of this encounter
--- OUTSIDE RECORDS SUMMARY | 2021-11-28 13:42 | XMS_ITS | Encounter Summary ---
:1980 Author Organization [place] Address [address] [place] [address] Care Team Providers Name Role Phone Clinic, [facility] Primary Care Provide r Stephani Pina Kim YANES CLINICAL REGISTERED NURSE Unavailable Reason for Visit Reason Onset Date Comments Erroneous encounter-disregard 03/07/2020 Encounter Details Date Type Department Care Team Description 03/03/2020 Virtual Visit [facility] Inocencio Newberry ERRONEOUS Hepatology Clinic JIMBO Jesus ENCOUNTER--DISREGARD [address] (Primary Dx) [address] [place] [phone] Social History Tobacco Use Types Packs/Day Years Used Date Smoking Tobacco: Every Day Cigarettes 0.3 10 Smokeless Tobacco: Never Comments: 5-8 cigarettes a day Alcohol Use Standard Drinks/Week Comments Yes 0 (1 standard drink = 0.6 oz pure alcoho l) drinking a pint of vodka daily Sex Assigned at Date Recorded Female 01/14/2020 10:57 AM RESEARCH SUPPORT SPECIALIST COVID-19 Exposure Response Date Recorded In the last month, have you been in contact with No / Unsure 02/28/2020 9:23 AM RESEARCH SUPPORT SPECIALIST someone who was confirmed or suspected to have Coronavirus / COVID-19? documented as of this encounter Progress Notes Violeta Mckay CMA - 03/03/2020 9:45 AM CST Not feeling well and asked to be rescheduled for next week. Violeta Mckay CMA ARCH SUPPORT SPECIALIST Inocencio Newberry PA-C - 03/03/2020 9:45 AM CST This encounter was opened in error. Please disregard. ARCH SUPPORT SPECIALIST documented in this encounter Plan of Treatment Upcoming Encounters Date Type Specialty Care Team Description 11/29/2021 Office Visit Wound Care Luis Camara, CALVIN 909 [place] [address] (Wo rk) 01/21/2022 Office Visit Gastroenterology Juanis Levi 2450 [place] [phone] Luis Fernando Miles MD 516 [facility] [address] [place], [place] [address] documented as of this encounter Visit Diagnoses Diagnosis ERRONEOUS ENCOUNTER--DISREGARD - Primary documented in this encounter Additional Health Concerns Assessment Noted Time PHQ-9 Depression Total Score: 6 12/27/2019 9:38 AM RESEARCH SUPPORT SPECIALIST documented as of this encounter Care Teams Sintering Plant Supervisor Relationship Specialty Start Date End Date Clinic, [facility] Medical PCP - General 01/20/18 06/28/21 [address] [place], [place] [phone] Stephani Pina APRN CLINICAL REGISTERED NURSE Assigned PCP 01/30/20 12/30/[address] [place] [address] documented as of this encounter
--- OUTSIDE RECORDS SUMMARY | 2021-11-28 13:42 | XMS_ITS | Encounter Summary ---
:1980 Author Organization [place] Address [address] [facility] [place] [address] Care Team Providers Name Role Phone Clinic, [facility] Primary Care Provide r Stephani Pina GUSSET FOLDER SUPERVISOR MOLD SHOP Unavailable Encounter Details Date Type Department Care Team Description 02/27/2021 Office Visit [facility] Edgar Alfredo us e disorder, Clinic Ashly Gauthier MD severe, in sustained [address] [place] remission, on [address] 700 maintenance therapy [place], [place] (H) (Prim jaime Dx) [phone] Social History Tobacco Use Types Packs/Day Years Used Date Smoking Tobacco: Every Day Cigarettes 0.3 10 Smokeless Tobacco: Never Comments: 5-8 cigarettes a day Alcohol Use Standard Drinks/Week Comments Not Currently 0 (1 standard drink = 0.6 oz pure alcoho l) sober since 08/2020 Sex Assigned at Date Recorded Female 01/14/2020 10:57 AM STEAM HEATING INSTALLER documented as of this encounter Progress Notes Edgar Alfredo MD - 02/27/2021 9:15 AM CST NO SHOW M HEATING INSTALLER documented in this encounter Plan of Treatment Upcoming Encounters Date Type Specialty Care Team Description 11/29/2021 Office Visit Wound Care Luis Camara DPM [address] [place] [address] (Wo rk) 01/21/2022 Office Visit Gastroenterology Juanis Levi [address] [facility] [place] [phone] Luis Fernando Miles MD 516 [facility] [address] [place] [address] documented as of this encounter Visit Diagnoses Diagnosis Opioid use disorder, severe, in sustaine d remission, on maintenance therapy (H) - Primary documented in this encounter Additional Health Concerns Assessment Noted Time PHQ-9 Depression Total Score: 2 12/15/2020 1:07 PM CDT documented as of this encounter Care Teams Plastic Design Applier Relationship Specialty Start Date End Date Clinic, [facility] PCP - General 01/20/18 06/28/21 4[address] [place] [address] Stephani Pina APRN SUPERVISOR MOLD SHOP Assigned PCP 02/25/[address] [place] [address] documented as of this encounter
--- OUTSIDE RECORDS SUMMARY | 2021-11-28 13:42 | XMS_ITS | Encounter Summary ---
:1980 Author Organization [place] Address [address] [facility] [place] [address] Care Team Providers Name Role Phone Clinic, [facility] Primary Care Provide r YovaniStephani APRN RICE DRYER MECHANIC Unavailable Encounter Details Date Type Department Care [...] Date Recorded Female 01/14/2020 10:57 AM CHILD SUPPORT CASE OFFICER COVID-19 Exposure Response Date Recorded In the last month, have you been in contact with No / Unsure 09/27/2020 10:05 AM CDT someone who was confirmed or suspected to have Coronavirus / COVID-19? documented as of this encounter Plan of Treatment Upcoming Encounters Date Type Specialty Care Team Description 11/29/2021 Office Visit Wound Care Luis Camara DPM [address] [place], [place] [phone] (Wo rk) 01/21/2022 Office Visit Gastroenterology Juanis Levi 2450 [place] [phone] Luis Fernando Miles MD 516 [facility] [address] [place], [place] [address] documented as of this encounter Visit Diagnoses Not on filedocumented in this encounter Additional Health Concerns Assessment Noted Time PHQ-9 Depression Total Score: 6 12/27/2019 9:38 AM CHILD SUPPORT CASE OFFICER documented as of this encounter Care Teams Brokerage Coordinator Relationship Specialty Start Date End Date Clinic, [facility] PCP - General 01/20/18 06/28/[address] [place] [address] Stephani Pina APRN RICE DRYER MECHANIC Assigned PCP 01/30/20 12/30/20 [address] [facility] [address] [facility] 700 [place], [place] [address] documented as of this encounter
--- OUTSIDE RECORDS SUMMARY | 2021-11-28 13:42 | XMS_ITS | Encounter Summary ---
:1980 Author Organization [place] Address [address] [place] [address] Care Team Providers Name Role Phone Clinic, [facility] Primary Care Provide r Stephani Pina Kim LEON 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 FARMWORKER Unavailable Encounter Details Date Type Department Care [...] at Date Recorded Female 01/14/2020 10:57 AM LOAN SECRETARY COVID-19 Exposure Response Date Recorded In the last month, have you been in contact with No / Unsure 03/27/2020 9:20 AM LOAN SECRETARY someone who was confirmed or suspected to have Coronavirus / COVID-19? documented as of this encounter Plan of Treatment Upcoming Encounters Date Type Specialty Care Team Description 11/29/2021 Office Visit Wound Care Luis Camara DPM [address]09 [place] [address] (Wo rk) 01/21/2022 Office Visit Gastroenterology Juanis Levi 24[address] [place] [address] Luis Fernando Miles MD 516 [facility] [address] [place], [place] [address] documented as of this encounter Visit Diagnoses Not on filedocumented in this encounter Additional Health Concerns Assessment Noted Time PHQ-9 Depression Total Score: 6 12/27/2019 9:38 AM LOAN SECRETARY documented as of this encounter Care Teams Electronics Technology Instructor Relationship Specialty Start Date End Date Clinic, [facility] PCP - General 01/20/18 06/28/21 4[address] [place] [address] Stephani Pina APRN 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 FARMWORKER Assigned PCP 01/30/20 12/30/20 [facility] 700 [place], [place] [address] documented as of this encounter
--- OUTSIDE RECORDS SUMMARY | 2021-11-28 13:42 | XMS_ITS | Encounter Summary ---
:1980 Author Organization [place] Address [address] [facility] [place] [address] Care Team Providers Name Role Phone Clinic, [facility] Primary Care Provide r Stephani Pina APRN SLIVER HANDLER Unavailable [phone] Juanis Levi Primary Care Provider Elsa Yeh RN Unavailable Unavailable Rogelio Treadwell MD Unavailable [phone] Luis Camara DPM Unavailable [phone] Camryn Christina MD Unavailable Sintia Lange PA-C Unavailable Luis Fernando Miles MD Unavailable [phone] Reason for Visit Reason Comments Medication Refill Encounter Details Date Type Department Care Team Description 02/27/2021 Refill [facility] Reymundo Sifuentes MD Medication Refill [place] [address] [place] [address] [place] [phone] Social History Tobacco Use Types Packs/Day Years Used Date Smoking Tobacco: Every Day Cigarettes 0.3 10 Smokeless Tobacco: Never Comments: 5-8 cigarettes a day Alcohol Use Standard Drinks/Week Comments Not Currently 0 (1 standard drink = 0.6 oz pure alcoho l) sober since 08/2020 Sex Assigned at Date Recorded Female 01/14/2020 10:57 AM SEROLOGIST documented as of this encounter Miscellaneous Notes [...] Solano RN on 02/27/2021 at 4:18 PM LOGIST documented in this encounter Plan of Treatment Upcoming Encounters Date Type Specialty Care Team Description 11/29/2021 Office Visit Wound Care Luis Camara DPM 9[address] [place], [place] [address] (Wo rk) 01/21/2022 Office Visit Gastroenterology Juanis Levi [address] [place] [phone] Luis Fernando Miles MD [address] [address] documented as of this encounter Visit Diagnoses Diagnosis Opioid use disorder, severe, in sustaine d remission, on maintenance therapy (H) documented in this encounter Additional Health Concerns Infection Onset Date Last Indicated Resolved Time MRSAComment: Added from external infection. 11/07/201406/18 Assessment Noted Time PHQ-9 Depression Total Score: 2 12/15/2020 1:07 PM CDT documented as of this encounter Care Teams Psychiatry Teacher Relationship Specialty Start Date End Date Clinic, [facility] PCP - General 01/20/18 [address] [place] [address] [place], [place] [phone] Juanis Levi PCP - General Addiction Medicine 06/29/21 [address] [facility] [place] [address] Stephani Pina, Assigned PCP 02/25/21 WELDING 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 ELECTRO GAS SLIVER HANDLER [address] [place], [place] [address] Elsa Yeh, Registered Nurse Infectious Diseases 07/25/21 RN Rogelio Treadwell Assigned Musculoskeletal 08/04/21 MD August Provider 9[address] [place], [place] [address] Luis Camara MD Podiatry 08/16/21 CALVIN Burnett [address] [place], [place] [address] Camryn Christina Assigned Surgical 09/01/21 09/07/21 MD Lexie Provider 420 [facility] 195 [place], [place] [address] Sintia Lange PA-C Assigned Surgical 09/08/21 909 [facility] 4TH Provider FLOOR [place], [place] [address] Landon Warren MD Gastroenterology 11/21/21 MD Luis Fernando 516 [facility] [address] [place], [place] [address] documented as of this encounter
--- OUTSIDE RECORDS SUMMARY | 2021-11-28 13:42 | XMS_ITS | Encounter Summary ---
:1980 Author Organization [place] Address [address] [facility] [place] [address] Care Team Providers Name Role Phone Clinic, [facility] Primary Care Provide r Stephani Pina Kim LEON PROFESSOR OF ANTHROPOLOGY Unavailable [phone] Encounter Details Date Type Department Care [...] at Date Recorded Female 01/14/2020 10:57 AM PIANO ASSEMBLER COVID-19 Exposure Response Date Recorded In the last month, have you been in contact with No / Unsure 05/04/2021 11:13 AM CDT someone who was confirmed or suspected to have Coronavirus / COVID-19? documented as of this encounter Plan of Treatment Upcoming Encounters Date Type Specialty Care Team Description 11/29/2021 Office Visit Wound Care Luis Camara DPM 909 [place] [address] (Wo rk) 01/21/2022 Office Visit Gastroenterology Juanis Levi 24[address] [place] [phone] Luis Fernando Miles MD 516 [facility] [address] [place], [place] [address] documented as of this encounter Visit Diagnoses Not on filedocumented in this encounter Additional Health Concerns Assessment Noted Time PHQ-9 Depression Total Score: 2 12/15/2020 1:07 PM CDT documented as of this encounter Care Teams Proration Clerk Relationship Specialty Start Date End Date Clinic, [facility] PCP - General 01/20/18 06/28/[address] [place] [id number] Stephani Pina APRN PROFESSOR OF ANTHROPOLOGY Assigned PCP 02/25/[address] [place] [address] documented as of this encounter
--- OUTSIDE RECORDS SUMMARY | 2021-11-28 13:42 | XMS_ITS | Encounter Summary ---
:1980 Author Organization [place] Address [address] [facility] [place] [address] Care Team Providers Name Role Phone Clinic, [facility] Primary Care Provide r Stephani Pina Kim LEON HOP SORTER Unavailable [phone] Encounter Details Date Type Department Care [...] Date Recorded Female 01/14/2020 10:57 AM GAS LINE INSTALLER SUPERVISOR COVID-19 Exposure Response Date Recorded In the last month, have you been in contact with No / Unsure 02/28/2020 9:23 AM GAS LINE INSTALLER SUPERVISOR someone who was confirmed or suspected to have Coronavirus / COVID-19? documented as of this encounter Plan of Treatment Upcoming Encounters Date Type Specialty Care Team Description 11/29/2021 Office Visit Wound Care Luis Camara DPM 909 [place] [address] (Wo rk) 01/21/2022 Office Visit Gastroenterology Juanis Levi 24[address] [place] [address] Luis Fernando Miles MD 516 [facility] [address] [place], [place] [address] documented as of this encounter Visit Diagnoses Not on filedocumented in this encounter Additional Health Concerns Assessment Noted Time PHQ-9 Depression Total Score: 6 12/27/2019 9:38 AM GAS LINE INSTALLER SUPERVISOR documented as of this encounter Care Teams Debt Collector Relationship Specialty Start Date End Date Clinic, [facility] PCP - General 01/20/18 06/28/21 4645 [place] [address] Stephani Pina APRN HOP SORTER Assigned PCP 01/30/20 12/30/20 [facility] 700 [place], [place] [address] documented as of this encounter
--- OUTSIDE RECORDS SUMMARY | 2021-11-28 13:42 | XMS_ITS | Encounter Summary ---
:1980 Author Organization [place] Address [address] [facility] [place] [address] Care Team Providers Name Role Phone Clinic, [facility] Primary Care Provide r Stephani Pina Kim LEON RETAIL VISUAL MERCHANDISER Unavailable Encounter Details Date Type Department Care [...] Date Recorded Female 01/14/2020 10:57 AM RETAIL SHIFT MANAGER COVID-19 Exposure Response Date Recorded In the last month, have you been in contact with No / Unsure 12/08/2020 10:54 AM CDT someone who was confirmed or suspected to have Coronavirus / COVID-19? documented as of this encounter Plan of Treatment Upcoming Encounters Date Type Specialty Care Team Description 11/29/2021 Office Visit Wound Care Luis Camara DPM 909 [place] [address] (Wo rk) 01/21/2022 Office Visit Gastroenterology Juanis Levi 2450 [place] [phone] Luis Fernando Miles MD 516 [facility] [address] [place], [place] [address] documented as of this encounter Visit Diagnoses Not on filedocumented in this encounter Additional Health Concerns Assessment Noted Time PHQ-9 Depression Total Score: 6 12/27/2019 9:38 AM RETAIL SHIFT MANAGER documented as of this encounter Care Teams Manager Welding Relationship Specialty Start Date End Date Clinic, [facility] PCP - General 01/20/18 06/28/21 4[address] [place] [address] Stephani Pina APRN RETAIL VISUAL MERCHANDISER Assigned PCP 01/30/20 12/30/20 [facility] 700 [place], [place] [address] documented as of this encounter
--- OUTSIDE RECORDS SUMMARY | 2021-11-28 13:42 | XMS_ITS | Encounter Summary ---
:1980 Author Organization [place] Address [facility]0 [place] [address] Care Team Providers Name Role Phone Clinic, [facility] Primary Care Provide r Eufemia Pinadelon Alvarez APRN SUPERVISOR ABATTOIR Unavailable Reason for Visit Reason Onset Date Comments Labs Only 02/29/2020 [facility]. Encounter Details Date Type Department Care Team Description 02/29/2020 Telephone [facility] Inocencio Newberry Labs Only ([facility] Hepatology Clinic JIMBO Jesus [facility] in [address] 9 [place] [phone] Social History Tobacco Use Types Packs/Day Years Used Date Smoking Tobacco: Every Day Cigarettes 0.3 10 Smokeless Tobacco: Never Comments: 5-8 cigarettes a day Alcohol Use Standard Drinks/Week Comments Yes 0 (1 standard drink = 0.6 oz pure alcoho l) drinking a pint of vodka daily Sex Assigned at Date Recorded Female 01/14/2020 10:57 AM COMMERCIAL 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 COVID-19 Exposure Response Date Recorded In the last month, have you been in contact with No / Unsure 02/28/2020 9:23 AM COMMERCIAL 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 someone who was confirmed or suspected to have Coronavirus / COVID-19? documented as of this encounter Miscellaneous Notes Telephone Encounter - Grothe, Ann Marie - 02/29/2020 4:25 PM CST Lab orders faxed. Patient notified. Hannah Gilmore LPN Hepatology Clinic [facility] Call Center Phone Message May a detailed message be left on voicemail: yes Reason for Call: Order(s): Other: Reason for requested: Pt is requesting for her lab orders to be sent to the [facility] in [facility] Date needed: jesus Provider name: Dr. Newberry Action Taken: Message routed to: [facility] hep Travel Screening: Not Applicable ERCIAL 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 documented in this encounter Plan of Treatment Upcoming Encounters Date Type Specialty Care Team Description 11/29/2021 Office Visit Wound Care Luis Camara DPM 909 [place], [place] [phone] (Wo rk) 01/21/2022 Office Visit Gastroenterology Juanis Levi 2450 [place] [address] Luis Fernando Miles MD 516 [facility] 2A [place], [place] [address] documented as of this encounter Visit Diagnoses Diagnosis Chronic hepatitis C without hepatic coma (H) - Primary documented in this encounter Additional Health Concerns Assessment Noted Time PHQ-9 Depression Total Score: 6 12/27/2019 9:38 AM COMMERCIAL 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 documented as of this encounter Care Teams Etiquette Teacher Relationship Specialty Start Date End Date [facility], [facility] PCP - General 01/20/18 06/28/[address] [place] [address] Stephani Pina APRN SUPERVISOR ABATTOIR Assigned PCP 01/30/20 12/30/20 [facility] 700 [place] [address] documented as of this encounter
--- OUTSIDE RECORDS SUMMARY | 2021-11-28 13:42 | XMS_ITS | Encounter Summary ---
:1980 Author Organization [place] Address [address] [place] [address] Care Team Providers Name Role Phone Clinic, [facility] Primary Care Provide r Stephani Pina Kim YANES TROLLEY COACH DRIVER Unavailable Reason for Visit Reason Onset Date Comments *-*INCOMING RECORDS*-* 03/03/2020 Encounter Details Date Type Department Care Team Description 03/03/2020 PRE VISIT [facility] Inocencio Newberry *-*HEATHER Barriga RECORDS*-* Hepatology Clinic JIMBO Jesus [address] [phone] Social History Tobacco Use Types Packs/Day Years Used Date Smoking Tobacco: Every Day Cigarettes 0.3 10 Smokeless Tobacco: Never Comments: 5-8 cigarettes a day Alcohol Use Standard Drinks/Week Comments Yes 0 (1 standard drink = 0.6 oz pure alcoho l) drinking a pint of vodka daily Sex Assigned at Date Recorded Female 01/14/2020 10:57 AM SYSTEMS AUDITOR COVID-19 Exposure Response Date Recorded In the last month, have you been in contact with No / Unsure 02/28/2020 9:23 AM SYSTEMS AUDITOR someone who was confirmed or suspected to have Coronavirus / COVID-19? documented as of this encounter Miscellaneous Notes Telephone Encounter - Carie Ford Maycol - 03/01/2020 8:17 AM CST RECORDS RECEIVED FROM: Internal Appt Date: 03.03.2020 NOTES STATUS DETAILS OFFICE NOTE from referring provider Internal 02.28.2020 Juanis Levi MD OFFICE NOTES from other specialists Care Everywhere 08.25.2019 Leslie Rasheed D.O. [place] DISCHARGE SUMMARY from hospital Internal 07.04.2018 Joycelyn [...] N/A HEPATITIS B CORE ANTIBODY Internal 12.13.2016 EMS AUDITOR documented in this encounter Plan of Treatment Upcoming Encounters Date Type Specialty Care Team Description 11/29/2021 Office Visit Wound Care Luis Camara DPM 909 [place] [address] (Wo rk) 01/21/2022 Office Visit Gastroenterology Juanis Levi [address]50 [place] [address] Luis Fernando Miles MD [address] [address] documented as of this encounter Visit Diagnoses Not on filedocumented in this encounter Additional Health Concerns Assessment Noted Time PHQ-9 Depression Total Score: 6 12/27/2019 9:38 AM SYSTEMS AUDITOR documented as of this encounter Care Teams Roofer Vinyl Coating Relationship Specialty Start Date End Date Clinic, [facility] PCP - General 01/20/18 06/28/21 [facility] [place] [address] Stephani Pina, FARZANA TROLLEY COACH DRIVER Assigned PCP 01/30/20 12/30/[address] [place] [address] 700 [place] [address] documented as of this encounter
--- OUTSIDE RECORDS SUMMARY | 2021-11-28 13:42 | XMS_ITS | Encounter Summary ---
:1980 Author Organization [place] Address [address] [facility] [place] [address] Care Team Providers Name Role Phone Clinic, [facility] Primary Care Provide r YovaniStephani APRN SPEECH CLINICIAN Unavailable Encounter Details Date Type Department Care [...] at Date Recorded Female 01/14/2020 10:57 AM HOME RESTORATION SERVICE SUPERVISOR COVID-19 Exposure Response Date Recorded In the last month, have you been in contact with No / Unsure 08/16/2020 11:17 AM CDT someone who was confirmed or suspected to have Coronavirus / COVID-19? documented as of this encounter Plan of Treatment Upcoming Encounters Date Type Specialty Care Team Description 11/29/2021 Office Visit Wound Care Luis Camara DPM [address] [place], [place] [address] (Wo rk) 01/21/2022 Office Visit Gastroenterology Juanis Levi [address]50 [place] [phone] Luis Fernando Miles MD 516 [facility] [address] [place], [place] [address] documented as of this encounter Visit Diagnoses Not on filedocumented in this encounter Additional Health Concerns Assessment Noted Time PHQ-9 Depression Total Score: 6 12/27/2019 9:38 AM HOME RESTORATION SERVICE SUPERVISOR documented as of this encounter Care Teams Crew Clerk Relationship Specialty Start Date End Date Clinic, [facility] PCP - General 01/20/18 06/28/[address] [place] [address] Stephani Pina APRN SPEECH CLINICIAN Assigned PCP 01/30/20 12/30/20 [facility] 700 [place], [place] [address] documented as of this encounter
--- OUTSIDE RECORDS SUMMARY | 2021-11-28 13:42 | XMS_ITS | Encounter Summary ---
:1980 Author Organization [place] Address [facility] [place] [address] Care Team Providers Name Role Phone Clinic, [facility] Primary Care Provide r Eufemia Pinadelon Alvarez APRN STREET WORKER Unavailable [phone] Encounter Details Date Type Department Care Team Description 03/28/2020 Telephone [facility] Generic, [facility] In abigail Rivera MD [address] [place] [address] Social History Tobacco Use Types Packs/Day Years Used Date Smoking Tobacco: Every Day Cigarettes 0.3 10 Smokeless Tobacco: Never Comments: 5-8 cigarettes a day Alcohol Use Standard Drinks/Week Comments Yes 0 (1 standard drink = 0.6 oz pure alcoho l) drinking a pint of vodka daily Sex Assigned at Date Recorded Female 01/14/2020 10:57 AM PUMP STATION OPERATOR COVID-19 Exposure Response Date Recorded In [...] KRYSTA Phase II appointment for client at [facility] Patient Name: ??See above Location of programming: [facility] Start Date: 05/18/2020 Group: ([id number] TH 5:30PM Provider: OLGA Baron Number of visits to be scheduled: 1 Length/Duration of Appointment in minutes: 120 Visit Type (VIDEO/TELEPHONE/IN-PERSON): Video (2798) Additional notes: Thanks OLGA Baron Telephone Encounter - Triston Cameron - 05/10/2020 8:17 AM CDT ----- Message from OLGA Deshpande sent at 05/09/2020 7:28 PM CDT ----- Regarding: Add 1 IOP KRYSTA Phase II appointment for client at [facility] Patient Name: ??See above Location of programming: [facility] IOP [facility] [place] Start Date: 05/11/20 Group: ([id number] TH Provider: OLGA Baron Number of visits to be scheduled: 1 Length/Duration of Appointment in minutes: 120 Visit Type (VIDEO/TELEPHONE/IN-PERSON): Video ([id number]) Additional notes: OLGA Baron Telephone Encounter - Brittnee Lainez - 04/21/2020 3:34 PM CST ----- Message from OLGA Deshpande sent at 04/21/2020 3:16 PM PUMP STATION OPERATOR ----- Regarding: Set up IOP Phase III appointments for client at [facility] Patient Name: ??See above Location of programming: [facility] Start Date: 04/25/20 Group: ([id number] T 5:30PM Provider: OLGA Baron Number of visits to be scheduled: 8 Length/Duration of Appointment in minutes: 120 Visit Type (VIDEO/TELEPHONE/IN-PERSON): Video ([id number]) Additional notes: OLGA Jacobson STATION OPERATOR Telephone Encounter - Brittnee Lainez - 04/21/2020 3:24 PM CST ----- Message from OLGA Deshpande sent at 04/21/2020 3:15 PM PUMP STATION OPERATOR ----- Regarding: Cancel all future mixed IOP KRYSTA Phase II appointments at [facility] Please arrange to cancel all future mixed IOP KRYSTA Phase II appointments for the above client at the [facility] effective immediately. [id number]. Client will begin Phase III next week. Thanks OLGA Baron STATION OPERATOR Telephone Encounter - Britton Goodwin LADC - 04/05/2020 4:29 PM CST Received call from Aarti Tirado [facility]. CPS worker regarding getting notes regarding client. Indicated she would fax GIOVANNA to me. Aarti asked me specifically about client sobriety since client has not come in to [facility] for required breath tests. I reported that [...] will be sending it as soon as Ireceive the GIOVANNA and CPS will of course do with the information whatever their protocol indicates. OLGA Baron STATION OPERATOR Telephone Encounter - Allie Aguilera - 03/28/2020 4:49 PM CST ----- Message from OLGA Deshpande sent at 03/28/2020 3:38 PM PUMP STATION OPERATOR ----- Regarding: Set up 1:1 appointment for client with me via video at [facility] Please arrange a 1:1 video ([id number]) appointment with me for the above client for March 29 at 1PM. My provider ID is; [id number]. Thanks OLGA Baron STATION OPERATOR documented in this encounter Plan of Treatment Upcoming Encounters Date Type Specialty Care Team Description 11/29/2021 Office Visit Wound Care Luis Camara, CALVIN [address] [facility] [place], [place] [address] (Wo rk) 01/21/2022 Office Visit Gastroenterology Juanis Levi 2450 [place] [phone] Luis Fernando Miles MD 516 [facility] 2A [place], [place] [address] documented as of this encounter Visit Diagnoses Diagnosis Alcohol abuse, continuous - Primary Nondependent alcohol abuse, continuous d rinking behavior documented in this encounter Additional Health Concerns Assessment Noted Time PHQ-9 Depression Total Score: 6 12/27/2019 9:38 AM PUMP STATION OPERATOR documented as of this encounter Care Teams Plate Glass Polisher Relationship Specialty Start Date End Date Clinic, [facility] PCP - General 01/20/18 06/28/[address] [place] [address] Stephani Pina APRN STREET WORKER Assigned PCP 01/30/20 12/30/20 [facility] 700 [place], [place] [address] documented as of this encounter
--- OUTSIDE RECORDS SUMMARY | 2021-11-28 13:42 | XMS_ITS | Encounter Summary ---
:1980 Author Organization [place] Address [address] [place] [address] Care Team Providers Name Role Phone Clinic, [facility] Primary Care Provide r Guerita Haasherb Bills BILL BOARD POSTER PELT DROPPER Unavailable [phone] Encounter Details Date Type Department Care [...] at Date Recorded Female 01/14/2020 10:57 AM QA SOFTWARE TESTER COVID-19 Exposure Response Date Recorded In the last month, have you been in contact with No / Unsure 01/15/2021 1:15 PM QA SOFTWARE TESTER someone who was confirmed or suspected to have Coronavirus / COVID-19? documented as of this encounter Plan of Treatment Upcoming Encounters Date Type Specialty Care Team Description 11/29/2021 Office Visit Wound Care Luis Camara DPM 909 [place] [address] (Wo rk) 01/21/2022 Office Visit Gastroenterology Juanis Levi 2450 [place] [address] Luis Fernando Miles MD 6 [facility] 2A [place], [place] [address] documented as of this encounter Visit Diagnoses Not on filedocumented in this encounter Additional Health Concerns Assessment Noted Time PHQ-9 Depression Total Score: 2 12/15/2020 1:07 PM CDT documented as of this encounter Care Teams Blow Up Operator Relationship Specialty Start Date End Date Clinic, [facility] PCP - General 01/20/18 06/28/[address] [place] [address] Tatyana Haas APRN PELT DROPPER Assigned PCP 12/31/20 02/24/21 [facility] [address] [facility] [address] [place] [address] documented as of this encounter
--- OUTSIDE RECORDS SUMMARY | 2021-11-28 13:42 | XMS_ITS | Encounter Summary ---
:1980 Author Organization [place] Address [address] [facility] [place] [address] Care Team Providers Name Role Phone Clinic, [facility] Primary Care Provide r YovaniStephani APRN IT HELP DESK ASSOCIATE Unavailable Reason for Visit Reason Onset Date Comments Clinic Care Coordination - Follow-up 03/27/2020 Encounter Details Date Type Department Care Team Description 03/27/2020 [facility]phone [facility] Car e Coord[facility] Clinic [facility] - Follow-up [address] [address] [place] [address] Social History Tobacco Use Types Packs/Day Years Used Date Smoking Tobacco: Every Day Cigarettes 0.3 10 Smokeless Tobacco: Never Comments: 5-8 cigarettes a day Alcohol Use Standard Drinks/Week Comments Yes 0 (1 standard drink = 0.6 oz pure alcoho l) drinking a pint of vodka daily Sex Assigned at Date Recorded Female 01/14/2020 10:57 AM HOME CARE NURSE COVID-19 Exposure Response Date Recorded In the last month, have you been in contact with No / Unsure 03/27/2020 9:20 AM HOME CARE NURSE someone who was confirmed or suspected to have Coronavirus / COVID-19? documented as of this encounter Miscellaneous Notes Telephone Encounter - Kamari Spring - 03/27/2020 11:15 AM CST Stephani is setup with Eri He on the at 4pm with Dr. Jorden Hoffman for press tender long goods care. CARE NURSE documented in this encounter Plan of Treatment Upcoming Encounters Date Type Specialty Care Team Description 11/29/2021 Office Visit Wound Care Luis Camara, [place] [address] [place], [place] [phone] (Wo rk) 01/21/2022 Office Visit Gastroenterology Juanis Levi [address] [place] [address] Luis Fernando Miles MD [address] [facility] [address] [place], [place] [address] documented as of this encounter Visit Diagnoses Not on filedocumented in this encounter Additional Health Concerns Assessment Noted Time PHQ-9 Depression Total Score: 6 12/27/2019 9:38 AM HOME CARE NURSE documented as of this encounter Care Teams Hairspring Ii Inspector Relationship Specialty Start Date End Date Clinic, [facility] PCP - General 01/20/18 06/28/[address] [place] [address] Stephani Pina APRN IT HELP DESK ASSOCIATE Assigned PCP 01/30/20 12/30/[address] [place] [address] [address] [place], [place] [id number] documented as of this encounter
--- OUTSIDE RECORDS SUMMARY | 2021-11-28 13:42 | XMS_ITS | Encounter Summary ---
:1980 Author Organization [place] Address [facility] [place] [address] Care Team Providers Name Role Phone Clinic, [facility] Primary Care Provide r Stephani Pina Kim LEON [place]ARRY OUT CLERK Unavailable Reason for Visit Reason Onset Date Comments Erroneous encounter-disregard 03/26/2021 follow up last seen 08/23/2020 Encounter Details Date Type Department Care Team Description 03/26/2021 PRE VISIT [facility] Landon Warren, [facility] MD Luis Fernando encounter-disregard [address] PWB (follow up last seen [address] [facility] [address] 08/23/2020) [place] [address] [phone] (Wo rk) Social History Tobacco Use Types Packs/Day Years Used Date Smoking Tobacco: Every Day Cigarettes 0.3 10 Smokeless Tobacco: Never Comments: 5-8 cigarettes a day Alcohol Use Standard Drinks/Week Comments Not Currently 0 (1 standard drink = 0.6 oz pure alcoho l) sober since 08/2020 Sex Assigned at Date Recorded Female 01/14/2020 10:57 AM RENAL CASE MANAGER COVID-19 Exposure Response Date Recorded In the last month, have you been in contact with No / Unsure 03/05/2021 9:18 AM RENAL CASE MANAGER someone who was confirmed or suspected to have Coronavirus / COVID-19? documented as of this encounter Miscellaneous Notes Telephone Encounter - Logan Carie L - 03/16/2021 11:11 AM CST disregard L CASE MANAGER documented in this encounter Plan of Treatment Upcoming Encounters Date Type Specialty Care Team Description 11/29/2021 Office Visit Wound Care Luis Camara DPM [address] [place], [place] [phone] (Wo rk) 01/21/2022 Office Visit Gastroenterology Juanis Levi [address] [place] [address] Luis Fernando Miles MD [address] [facility] [address] [place], [place] [id number] documented as of this encounter Visit Diagnoses Not on filedocumented in this encounter Additional Health Concerns Assessment Noted Time PHQ-9 Depression Total Score: 2 12/15/2020 1:07 PM CDT documented as of this encounter Care Teams Edging Machine Operator Relationship Specialty Start Date End Date Clinic, [facility] PCP - General 01/20/18 06/28/[address] [place] [id number] Stephani Pina APRN CARRY OUT CLERK Assigned PCP 02/25/21 [address] [facility] [address] [place] [address] documented as of this encounter
--- OUTSIDE RECORDS SUMMARY | 2021-11-28 13:42 | XMS_ITS | Encounter Summary ---
:1980 Author Organization [place] Address [address] [place] [address]. [place] [address] Care Team Providers Name Role Phone Stephani Pina APRN VEHICLE SERVICE ATTENDANT Unavailable [phone] Juanis Levi Primary Care Provider Reason for Visit Auth/Cert Specialty Diagnoses / Procedures Referred By Contact Refer red To Contact Med Surg Diagnoses Complicated Osteomyelitis [facility] [address] [place] [phone] Phone: Fax: Referral ID Status Reason Start Date Expiration Date Visits Requ ested Visits Authorized [id number] 1 1 Encounter Details Date Type Department Care Team Description 07/07/2021 Anesthesia Event [facility] Roosevelt Doan MD [address] [place] [address] PeriOp Services Victoria Christy MD [address] [place] [address] [place] [address] Anesthesia Record Procedure Summary Procedure Name Responsible Anesthesia Start Anesthesia Stop Anesthesiologist Time Time IRRIGATION AND Roosevelt Doan MD 07/07/21 0757 07/07/21 0934 DEBRIDEMENT, FOOT and ankle, wound vac exchange (Right: Foot) Events Date Time Event Comment 07/07/2021 0647 WASHER MEAT Ready for Procedure 0757 An Start 0758 AN REASSESS I attest that I have identified and re-evaluated the patient immediately before the induc tion of anesthesia and I am satisfied dorian t the anesthetic plan is suitable for the patient's condition and procedure. The f irst vital signs recorded are pre - induction. FARZANA Enrique NA 0758 An Start Data 0803 An Induction [...] Dodd RN Supraglottic Airway Placement Date: 07/07/21 08 by 07/07/21 17 by 07/07/21; Placement Irene Dickinson Fellegy, Mattilyn A, Time: 821 (created METAL FITTER WASHER MEAT FARZANA WASHER MEAT via procedure documentation); Airway Type: Standard LMA; Mask Ventilation: 0; LMA Size: 4; Airway Brand: Air-Q; Attempts: 1 Packing 07/07/21; 0903; 07/07/21 0903 by 07/23/21 1655 b y Right, Lateral; Monica Vallejo RN Inpatient, Nurse Ankle; Other (Comment) (3 pieces black wound vac sponge); 3; 07/23/21; 1655 Incision/Surgical Site 07/07/21; 0912; 07/07/21 0912 by 08/15/21 1200 by Right; Ankle; Monica [place] 08/15/21; Sadaf J RN documented in this encounter Social History Tobacco Use Types Packs/Day Years Used Date Smoking Tobacco: Every Day Cigarettes 0.3 10 Smokeless Tobacco: Never Comments: 5-8 cigarettes a day Alcohol Use Standard Drinks/Week Comments Not Currently 0 (1 standard drink = 0.6 oz pure alcoho l) sober since 08/2020 Sex Assigned at Date Recorded Female 01/14/2020 10:57 AM GANG HEAD SAW OPERATOR documented as of this encounter OR Notes [...] Patient location during procedure: OR Staff - WASHER MEAT: Irene Dickinson APRN CRNA Performed By: WASHER MEAT Consent for Airway Urgency: elective Indications and [...] So Luciano MD; Location: [facility] OR ??? STORE TEAM LEADER SURGERY ??? ORTHOPEDIC SURGERY ??? THORACIC SURGERY [...] and realistic alternatives discussed. Questions answered and patient/appliance service representative(s) expressed understanding. - Discussed: - Discussed [...] Care Transfer Note - Irene Dickinson APRN WASHER MEAT - 07/07/2021 9:39 AM CDT Patient: Stephani iKng Procedure: Procedure(s): IRRIGATION AND DEBRIDEMENT, FOOT and [...] Visit Wound Care Luis Camara DPM [address] [place], [place] [address] (Wo rk) 01/21/2022 Office Visit Gastroenterology Juanis Levi [address] [place] [phone] Luis Fernando Miles MD [address] [id number] documented as of this encounter Procedures Procedure [...] during procedure : OR Staff - ? WASHER MEAT: Irene Dickinson APRN C RNA ? Performed By: WASHER MEAT Consent for Airway ? Urgency: elective Indications [...] Dentition: Intact and Unchanged Roosevelt Doan MD [place] ANESTHESIA documented in this encounter Visit Diagnoses [...] or analgesic side effects. Hold while on PHARMACY HELPER or with regular IV opioid dosing Given [...] documented as of this encounter Care Teams Canopy Stringer Relationship Specialty Start Date End Date Juanis Levi PCP - General Addiction Medicine 06/29/21 [address] [place] [phone] Stephani Pina APRN VEHICLE SERVICE ATTENDANT Assigned PCP 02/25/21 [facility] [address] [place] [address] documented as of this encounter
--- OUTSIDE RECORDS SUMMARY | 2021-11-28 13:43 | XMS_ITS | Encounter Summary ---
:1980 Author Organization [place] Address [address] [facility] [place] [address] Care Team Providers Name Role Phone Clinic, [facility] Primary Care Provide r Guerita Haasdia Sanju MONTESSORI LEAD TEACHER BRUSHER WARP Unavailable [phone] Encounter Details Date Type Department Care Team Description 06/20/2019 Travel Social History Tobacco Use Types Packs/Day Years Used Date Smoking Tobacco: Every Day Cigarettes 0.3 10 Smokeless Tobacco: Never Comments: 5-8 cigarettes a day Alcohol Use Standard Drinks/Week Comments Not Currently 0 (1 standard drink = 0.6 oz pure alcoho l) sober 16 days Sex Assigned at Date Recorded Female 01/14/2020 10:57 AM PHYSICIAN NEONATOLOGY COVID-19 Exposure Response Date Recorded In the last month, have you been in contact with No / Unsure 06/20/2019 10:01 AM CDT someone who was confirmed or suspected to have Coronavirus / COVID-19? documented as of this encounter Plan of Treatment Upcoming Encounters Date Type Specialty Care Team Description 11/29/2021 Office Visit Wound Care Luis Camara DPM [address] [place] [address] (Wo rk) 01/21/2022 Office Visit Gastroenterology Juanis Levi [address] [place] [address] Luis Fernando Miles MD [address] [facility] [address] [place], [place] [phone] documented as of this encounter Visit Diagnoses Not on filedocumented in this encounter Additional Health Concerns Assessment Noted Time PHQ-9 Depression Total Score: 10 07/08/2018 1:27 PM CD T documented as of this encounter Care Teams Manager Of Administration Relationship Specialty Start Date End Date Clinic, [facility] PCP - General 01/20/18 06/28/[address] [place] [id number] Tatyana Haas APRN BRUSHER WARP Assigned PCP 08/02/18 01/29/20 [facility] [address] [facility] [address] [place] [address] documented as of this encounter
--- OUTSIDE RECORDS SUMMARY | 2021-11-28 13:43 | XMS_ITS | Encounter Summary ---
:1980 Author Organization [place] Address [facility] [place] [address] Care Team Providers Name Role Phone Clinic, [facility] Primary Care Provide r Tatyana Haas Sanju QUALITY CONTROL SYSTEMS MANAGER EDGER HAND Unavailable [phone] Reason for Visit Reason Onset Date Comments No Show 12/28/2018 Encounter Details Date Type Department Care Team Description 12/28/[address] [facility]on NO SHOW (P rimary Dx) Clinic Ashly Russ PA-C [address] [place] [address] [address] [facility] [address] [place] [address] [phone] Social History Tobacco Use Types Packs/Day Years Used Date Smoking Tobacco: Every Day Cigarettes 0.3 10 Smokeless Tobacco: Never Comments: 5-8 cigarettes a day Alcohol Use Standard Drinks/Week Comments Not Currently 0 (1 standard drink = 0.6 oz pure alcoho l) sober 16 days Sex Assigned at Date Recorded Female 01/14/2020 10:57 AM HAND II THERMAL CUTTER documented as of this encounter Progress Notes Alexander Linda MA - 12/28/2018 10:40 AM CST This patient was a no show for this scheduled appointment. II THERMAL CUTTER documented in this encounter Plan of Treatment Upcoming Encounters Date Type Specialty Care Team Description 11/29/2021 Office Visit Wound Care Luis Camara DPM [address] [facility] [address] [place], [place] [address] (Wo rk) 01/21/2022 Office Visit Gastroenterology Juanis Levi [address] [place] [address] Luis Fernando Miles MD [address] [facility] [address] [place] [address] documented as of this encounter Visit Diagnoses Diagnosis NO SHOW - Primary documented in this encounter Additional Health Concerns Assessment Noted Time PHQ-9 Depression Total Score: 10 07/08/2018 1:27 PM CD T documented as of this encounter Care Teams [employer] Consultant Relationship Specialty Start Date End Date Clinic, [facility] PCP - General 01/20/18 06/28/[address] [place] [address] Tatyana Haas APRN EDGER HAND Assigned PCP 08/02/18 01/29/20 [facility] [address] [facility] [address] [place] [address] documented as of this encounter
--- OUTSIDE RECORDS SUMMARY | 2021-11-28 13:43 | XMS_ITS | Encounter Summary ---
:1980 Author Organization [place] Address [facility] [place] [address] Care Team Providers Name Role Phone Clinic, [facility] Primary Care Provide r Tatyana Haas Sanju VICE PRESIDENT OF SALES CEMETERY COUNSELOR Unavailable [phone] Reason for Visit Reason Comments Alcohol Problem Encounter Details Date Type Department Care Team Description 01/20/2019 - [facility] Eliud Fernandez lcohol abuse, continuous; 01/21/2019 [facility] Emergency MD Solomon Nicotine dependence; Dept [facility] Alcohol dependence with unsp ecified alcohol-induced disorder (H); [address] JENIFFER Nicotine dependence, uncomplicated, unsp ecified nicotine product type [place], [place] [address] [address] [address] [address] [place], [place] [address] (Wo rk) Social History Tobacco Use Types Packs/Day Years Used Date Smoking Tobacco: Every Day Cigarettes 0.3 10 Smokeless Tobacco: Never Comments: 5-8 cigarettes a day Alcohol Use Standard Drinks/Week Comments Not Currently 0 (1 standard drink = 0.6 oz pure alcoho l) sober 16 days Sex Assigned at Date Recorded Female 01/14/2020 10:57 AM INSURANCE CLAIMS SUPERVISOR documented as of this encounter Last Filed Vital Signs Vital Sign Reading Time Taken Comments Blood Pressure 156/95 01/21/2019 1:10 AM INSURANCE CLAIMS SUPERVISOR Pulse 99 01/21/2019 1:10 AM INSURANCE CLAIMS SUPERVISOR Temperature 36.8 ??C (98.3 ??F) 01/20/2019 8:05 PM INSURANCE CLAIMS SUPERVISOR Respiratory Rate - - Oxygen Saturation 98% 01/21/2019 1:10 AM INSURANCE CLAIMS SUPERVISOR Inhaled Oxygen Concentration - - Weight - [...] as of this encounter ED Notes Mark Acevedo RN - 01/20/2019 8:04 PM CST A&O x4, ABCs intact. Pt with alcohol intoxication. Pt states she drank just before she came intoED. Pt is noted to be disheveled and has blood sow on hands and lips. Eliud Capps MD - 01/20/2019 8:01 PM CST History [...] Surgical History: Breast surgery section x 2 Service Delivery Director surgery Orthopedic surgery Thoracic surgery Family History: Mother - Depression, psychotic disorder, thyroid disease Father - Cerebrovascular disease, [place] Brother(s) - Depression Son - Asthma Social [...] 125/83 -- -- 98 97 95 % 01/20/19 2215 -- -- -- -- 98 95 % 01/20/19 2200 117/77 -- -- 99 101 95 % 01/20/19 2145 117/81 -- -- 96 96 96 % 01/20/19 2130 122/84 -- -- 91 92 97 % [...] Alcohol ethyl: 0.41 (HH) Lipase: 334 Interventions: 2233 Suboxone 2 mg Sublingual Emergency Department Course: [...] patient. Patient placed on ROBERT hold. (2304) [address] [place] [address] agreed to take the patient into their care. Findings and plan explained to the Patient. Patient will be transferred to [address] [place] [address] via EMS. Discussed the case with [address] [place] [address], who will admit the patient to a [...] nicotine product type F17.200 Disposition: Discharged to [address] [place] [address]. Scribe Disclosure: IKaveh, am serving as a scribe at 8:36 PM on 01/20/2019 to document services personally performed by Eliud Fernandez MD based on my observations and the provider's statements to me. 01/20/2019 [facility] EMERGENCY DEPARTMENT Eliud Fernandez MD 01/20/19 2086 RANCE CLAIMS SUPERVISOR documented in this encounter Plan of Treatment Upcoming Encounters Date Type Specialty Care Team Description 11/29/2021 Office Visit Wound Care Luis Camara DPM [address] [facility] [place] [address] (Wo rk) 01/21/2022 Office Visit Gastroenterology Amita Jaunis M [address] [place] [address] Luis Fernando Miles MD [address] [facility] [address] [place], [place] [address] documented as of this encounter Procedures Procedure Name Priority Date/Time Associated Comments Diagnosis XR ANKLE RIGHT 2 VIEWS STAT 01/20/2019 10:24 R esults for this PM INSURANCE CLAIMS SUPERVISOR procedure are i n the results section. CBC WITH PLATELETS & STAT 01/20/2019 8:35 PM R esults for this DIFFERENTIAL INSURANCE CLAIMS SUPERVISOR procedure are i n the results section. LIPASE STAT 01/20/2019 8:35 PM Results f or this INSURANCE CLAIMS SUPERVISOR procedure are i n the results section. COMPREHENSIVE STAT 01/20/2019 8:35 PM Results for this METABOLIC PANEL INSURANCE CLAIMS SUPERVISOR procedure ar e in the results section. ETHYL ALCOHOL LEVEL STAT 01/20/2019 8:35 PM Re sults for this INSURANCE CLAIMS SUPERVISOR procedure are i n the results section. documented in this encounter Results XR Ankle Right 2 Views (01/20/2019 10:24 PM INSURANCE CLAIMS SUPERVISOR) Anatomical Region Laterality Modality Leg, Ankle, Foot Right Digital Radiography Specimen (Source) Anatomical Collection Method Collection Time Re ceived Time Location / / Volume Laterality 01/20/2019 10:16 PM INSURANCE CLAIMS SUPERVISOR Impressions 01/20/2019 10:37 PM INSURANCE CLAIMS SUPERVISOR IMPRESSION: There is a region of lucency medial talar dome. This suggests osteochondral injury. Degenerative canales es in the ankle joint. No acute fracture or dislocation. Previous internal fixation of the anterior calcaneus. Narrative 01/20/2019 10:37 PM INSURANCE CLAIMS SUPERVISOR EXAM: XR ANKLE RT 2 VW LOCATION: [facility] DATE/TIME: 01/20/2019 10:16 PM INDICATION: Ankle swelling. COMPARISON: None. Procedure Note Durga Fuentes MD - 01/20/2019Formkarina jones of this note might be different from the original. EXAM: XR ANKLE RT 2 VW LOCATION: [facility] DATE/TIME: 01/20/2019 10:16 PM INDICATION: Ankle swelling. COMPARISON: None. IMPRESSION: There is a region of lucency medial talar dome. This suggests osteochondral injury. Degenerative changes in the ankle joint. No acute fracture or dislocation. Previous internal fixation of the anterior calcaneus. Eliud Fernandez MD IMG DIAGNOSTIC IMAGING ORDERABLES (ABNORMAL) Alcohol ethyl (01/20/2019 8:35 PM INSURANCE CLAIMS SUPERVISOR) athologist Signature Ethanol g/dL 0.41 (HH) <0.01 g/dL 01/20/2019 [place] 10:19 PM [facility] Comment: Specimen run with a dilution Critical Value called to and read back Margo DAVID (ERA) ON 01.20.2019 AT 2218 B Y VL Specimen Anatomical Collection Method Collection Time Receive d Time (Source) Location / / Volume Laterality Blood specimen 01/20/2019 8:35 PM 019 9:23 (specimen) INSURANCE CLAIMS SUPERVISOR PM INSURANCE CLAIMS SUPERVISOR Eliud Fernandez MD LAB - BLOOD ORDERABLES Performing Organization Address City/State/ZIP Code Phon e Number M [facility] [address] [place] [address] [phone] [facility] [address] [place] [address], U [phone] (ABNORMAL) Comprehensive metabolic panel (01/20/2019 8:35 PM INSURANCE CLAIMS SUPERVISOR) athologist Signature Sodium 143 133 - 144 01/20/2019 [place] mmol/L 10:19 PM [facility] Potassium 3.9 3.4 - 5.3 01/20/2019 [place] mmol/L 10:19 PM [facility] Comment: Specimen slightly hemolyzed, po tassium may be falsely elevated Chloride 106 94 - 109 mmol/L 01/20/2019 10:19 PM [facility] Carbon Dioxide 29 20 - 32 mmol/L 01/20/2019 10:19 PM [facility] Anion Gap 8 3 - 14 mmol/L 01/20/2019 10:19 PM [facility] Glucose 98 70 - 99 mg/dL 01/20/2019 10:19 PM [facility] Urea Nitrogen 6 (L) 7 - 30 mg/dL 01/20/2019 10:19 PM LUIS ALBERTO RVIESebastian [facility] Creatinine 0.61 0.52 - 1.04 mg/dL 01/20/2019 10:19 PM [facility] GFR Estimate >90 >60 01/20/2019 10:19 PM [facility] mL/min/{1.73_m2} [facility] Comment: Non GFR Calc Starting 02/03/2018, serum creatinine ba sed estimated GFR (eGFR) will be calculated using the Chronic Kidney Dise [facility] Epidemiology Collaboration (CKD-EPI) equation. GFR Estimate If >90 >60 mL/min/{1.73_m2} 01/20/2019 10:19 PM [facility] Comment: GFR Calc Starting 02/03/2018, serum creatinine ba sed estimated GFR (eGFR) will be calculated using the Chronic Kidney Dise [facility] Epidemiology Collaboration (CKD-EPI) equation. Calcium 8.9 8.5 - 10.1 01/20/2019 10:19 PM [facility] mg/dL [facility] Bilirubin Total 0.9 0.2 - 1.3 mg/dL 01/20/2019 10:19 P M [facility] Albumin 3.9 3.4 - 5.0 g/dL 01/20/2019 10:19 PM HEIDY IEW [facility] Protein Total 8.8 6.8 - 8.8 g/dL 01/20/2019 10:19 PM [facility] Alkaline Phosphatase 117 40 - 150 U/L 01/20/2019 10:19 PM [facility] ALT 117 (H) 0 - 50 U/L 01/20/2019 10:19 PM [facility] AST 158 (H) 0 - 45 U/L 01/20/2019 10:19 PM [facility] Comment: Specimen is hemolyzed which can falsely elevate AST. Analysis of a non-hemolyzed specimen may result in a l ower value. Specimen Anatomical Collection Method Collection Time Receive d Time (Source) Location / / Volume Laterality Blood specimen 01/20/2019 8:35 PM 019 9:23 (specimen) INSURANCE CLAIMS SUPERVISOR PM INSURANCE CLAIMS SUPERVISOR Eliud Fernandez MD LAB - BLOOD ORDERABLES Performing Organization Address City/State/ZIP Code Phon e Number M [facility] [address] [place] [address] [phone] [facility] [address] [place] [address], [place] [phone] Lipase (01/20/2019 8:35 PM INSURANCE CLAIMS SUPERVISOR) P athologist Signature Lipase 334 73 - 393 01/20/2019 [place] U/L 10:19 PM [facility] Specimen Anatomical Collection Method Collection Time Receive d Time (Source) Location / / Volume Laterality Blood specimen 01/20/2019 8:35 PM 019 9:23 (specimen) INSURANCE CLAIMS SUPERVISOR PM INSURANCE CLAIMS SUPERVISOR Eliud Fernandez MD LAB - BLOOD ORDERABLES Performing Organization Address City/State/ZIP Code Phon e Number M [facility] [address] [place] [address] 95 [phone] [facility] [address] [place] [address], [place] [phone] (ABNORMAL) CBC with platelets differential (01/20/2019 8:35 PM INSURANCE CLAIMS SUPERVISOR) Patholo gist Method Time Signature WBC 4.0 4.0 - 01/20/2019 [place] 11.0 9:28 PM [facility] 10e9/L [facility] RBC Count 4.55 3.8 - 5.2 01/20/2019 [place] 10e12/L 9:28 PM [facility] Hemoglobin 14.7 11.7 - 01/20/2019 [place] 15.7 g/dL 9:28 PM [facility] Hematocrit 44.7 35.0 - 01/20/2019 [place] 47.0 % 9:28 PM [facility] MCV 98 78 - 100 01/20/2019 [facility] fl 9:28 PM [facility] MCH 32.3 26.5 - 01/20/2019 [facility] 33.0 pg 9:28 PM [facility] MCHC 32.9 31.5 - 01/20/2019 [facility] 36.5 g/dL 9:28 PM [facility] RDW 13.2 10.0 - 01/20/2019 [facility] 15.0 % 9:28 PM [facility] Platelet Count 119 (L) 150 - 450 01/20/2019 [facility] 10e9/L 9:28 PM [facility] Diff Method Automated 01/20/2019 [facility] Method 9:28 PM [facility] % Neutrophils 31.5 % 01/20/2019 [facility] 9:28 PM [facility] % Lymphocytes 58.7 % 01/20/2019 [facility] 9:28 PM [facility] % Monocytes 7.4 % 01/20/2019 [facility] 9:28 PM [facility] % Eosinophils 1.2 % 01/20/2019 [facility] 9:28 PM [facility] % Basophils 0.7 % 01/20/2019 [facility] 9:28 PM [facility] % Immature 0.5 % 01/20/2019 [facility] Granulocytes 9:28 PM [facility] Nucleated RBCs 0 0 /100 01/20/2019 [facility] 9:28 PM [facility] Absolute 1.3 (L) 1.6 - 8.3 01/20/2019 [facility] Neutrophil 10e9/L 9:28 PM [facility] Absolute 2.4 0.8 - 5.3 01/20/2019 [facility] Lymphocytes 10e9/L 9:28 PM [facility] Absolute 0.3 0.0 - 1.3 01/20/2019 [facility] Monocytes 10e9/L 9:28 PM [facility] Absolute 0.1 0.0 - 0.7 01/20/2019 [facility] Eosinophils 10e9/L 9:28 PM [facility] Absolute 0.0 0.0 - 0.2 01/20/2019 [facility] Basophils 10e9/L 9:28 PM [facility] Abs Immature 0.0 0 - 0.4 01/20/2019 [facility] Granulocytes 10e9/L 9:28 PM [facility] Absolute 0.0 01/20/2019 [place] Nucleated RBC 9:28 PM INSURANCE CLAIMS SUPERVISOR [facility] Specimen Anatomical Collection Method Collection Time Receive d Time (Source) Location / / Volume Laterality Blood specimen 01/20/2019 8:35 PM 019 9:23 (specimen) INSURANCE CLAIMS SUPERVISOR PM INSURANCE CLAIMS SUPERVISOR Eliud Fernandez MD LAB - BLOOD ORDERABLES Performing Organization Address City/State/ZIP Code Phon e Number M [place] [address] [address] [place], [place] [address] [facility] [address] [place], [place] [address] [phone] documented in this encounter Visit Diagnoses Diagnosis Alcohol abuse, continuous Nondependent alcohol abuse, continuous d rinking behavior Nicotine dependence Tobacco use disorder Alcohol dependence with unspecified alco hol-induced disorder (H) Nicotine dependence, uncomplicated, unsp ecified nicotine product type documented in this encounter Administered Medications Inactive Administered Medications - up to 3 most recent administrations Medication Order MAR Action Action Date Dose Rate Site 0.9% sodium chloride BOLUS New Bag 01/20/2019 11:57 PM INSURANCE CLAIMS SUPERVISOR 500 mLs 500 mL/hr Intravenous, 500 mL, ONCE, at 500 mL/hr, Administer over 1 Hours, On Fri01/20/19 at 2332, For 1 dose buprenorphine HCl-naloxone HCl (SUBOXONE) Given 01/20/2019 10:33 PM INSURANCE CLAIMS SUPERVISOR 1 Film 8-2 MG per film 1 Film 1 Film, Sublingual, ONCE, On Fri01/20/19 at 2135, For 1 dose documented in this encounter Active and Recently Administered Medications Times are shown in INSURANCE CLAIMS SUPERVISOR. Scheduled Medication Order 01/19/2019 01/20/2019 01/21/2019 0.9% sodium chloride BOLUS (COMPLETED) 2 357 (New Bag - Provider: Luis Fernando Zavala RN) 0041 (Stopped - Provider: Luis Fernando [...] as of this encounter Care Teams Director Summer Sessions Relationship Specialty Start Date End Date Clinic, [facility] PCP - General 01/20/18 06/28/21 [address] [place], [place] [id number] Tatyana Haas, VICE PRESIDENT OF SALES CEMETERY COUNSELOR Assigned PCP 08/02/18 01/29/20 [facility] [address] [facility] [address] [place] [address] documented as of this encounter
--- OUTSIDE RECORDS SUMMARY | 2021-11-28 13:43 | XMS_ITS | Encounter Summary ---
:1980 Author Organization [place] Address [address] [place] [address] Care Team Providers Name Role Phone Clinic, [facility] Primary Care Provide r Guerita Haasdia Sanju SILK SCREEN PROCESSOR ASSISTANT PRODUCTION MANAGER Unavailable [phone] Encounter Details Date Type Department Care [...] Date Recorded Female 01/14/2020 10:57 AM CIVIL ENGINEERING DESIGNER COVID-19 Exposure Response Date Recorded In the last month, have you been in contact with No / Unsure 12/27/2019 7:20 AM CIVIL ENGINEERING DESIGNER someone who was confirmed or suspected to have Coronavirus / COVID-19? documented as of this encounter Plan of Treatment Upcoming Encounters Date Type Specialty Care Team Description 11/29/2021 Office Visit Wound Care Luis Camara DPM [address] [place] [address] (Wo rk) 01/21/2022 Office Visit Gastroenterology Juanis Levi [address] [place] [address] Luis Fernando Miles MD [address] [facility] [address] [place], [place] [address] documented as of this encounter Visit Diagnoses Not on filedocumented in this encounter Additional Health Concerns Assessment Noted Time PHQ-9 Depression Total Score: 6 12/27/2019 9:38 AM CIVIL ENGINEERING DESIGNER documented as of this encounter Care Teams Marketing/Sales Person Relationship Specialty Start Date End Date Clinic, [facility] PCP - General 01/20/18 06/28/[address] [place] [address] Tatyana Haas APRN ASSISTANT PRODUCTION MANAGER Assigned PCP 08/02/18 01/29/20 [facility] [address] [facility] [address] [place] [address] documented as of this encounter
--- OUTSIDE RECORDS SUMMARY | 2021-11-28 13:43 | XMS_ITS | Encounter Summary ---
:1980 Author Organization [place] Address [address] [facility] [place] [address] Care Team Providers Name Role Phone Clinic, [facility] Primary Care Provide r Guerita Haasherb Bills TEXTILE FINISHER LATIN DANCER Unavailable [phone] Encounter Details Date Type Department Care [...] at Date Recorded Female 01/14/2020 10:57 AM C ARCHITECT COVID-19 Exposure Response Date Recorded In the last month, have you been in contact with No / Unsure 01/11/2020 8:00 PM C ARCHITECT someone who was confirmed or suspected to have Coronavirus / COVID-19? documented as of this encounter Plan of Treatment Upcoming Encounters Date Type Specialty Care Team Description 11/29/2021 Office Visit Wound Care Luis Camara DPM [address] [place] [address] (Wo rk) 01/21/2022 Office Visit Gastroenterology Juanis Levi [address] [place] [address] Luis Fernando Miles MD [address] [facility] [address] [place], [place] [address] documented as of this encounter Visit Diagnoses Not on filedocumented in this encounter Additional Health Concerns Assessment Noted Time PHQ-9 Depression Total Score: 6 12/27/2019 9:38 AM C ARCHITECT documented as of this encounter Care Teams Radio Announcer Relationship Specialty Start Date End Date Clinic, [facility] PCP - General 01/20/18 06/28/[address] [place] [address] Tatyana Haas APRN LATIN DANCER Assigned PCP 08/02/18 01/29/20 [facility] [address] [facility] [address] [place] [address] documented as of this encounter
--- OUTSIDE RECORDS SUMMARY | 2021-11-28 13:43 | XMS_ITS | Encounter Summary ---
:1980 Author Organization [place] Address [facility] [place] [address] Care Team Providers Name Role Phone Clinic, [facility] Primary Care Provide r Tatyana Haas Sanju ASSET PROTECTION 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 STAINED GLASS WINDOW DESIGNER Unavailable [phone] Reason for Visit Reason Comments Alcohol Intoxication Encounter Details Date Type Department Care Team Description 12/18/2018 Emergency [facility] Odette Frank MD [facility] [address] [place] [address] Alcoholic intoxication [facility] [address] [place] [address] without complication Dept (H) [address] [place] [address] Social History Tobacco Use Types Packs/Day Years Used Date Smoking Tobacco: Every Day Cigarettes 0.3 10 Smokeless Tobacco: Never Comments: 5-8 cigarettes a day Alcohol Use Standard Drinks/Week Comments Not Currently 0 (1 standard drink = 0.6 oz pure alcoho l) sober 16 days Sex Assigned at Date Recorded Female 01/14/2020 10:57 AM EDUCATIONAL ASSISTANT documented as of this encounter Last [...] be sent through Care Everywhere. Alcohol Intoxication (Wallisian)documented in this encounter Medications at Time of [...] Depression Psychotic disorder Thyroid disease Cerebrovascular disease [place] Asthma Social History: Presents alone. Current ever [...] provider's statements to me. Otto Peterson 12/18/2018 [facility] EM[facility] Eliud Fernandez MD 12/21/18 1545 ATIONAL ASSISTANT documented in this encounter Plan of Treatment Upcoming Encounters Date Type Specialty Care Team Description 11/29/2021 Office Visit Wound Care Luis Camara, [place] [address] [place] [address] (Wo rk) 01/21/2022 Office Visit Gastroenterology Juanis Levi [address] [place] [address] Luis Fernando Miles MD 516 [facility] [address] [place] [address] documented as of this encounter [...] Ethanol g/dL 0.35 (HH) <0.01 g/dL 12/18/2018 [place] 3:59 PM CDT [facility] Comment: Critical Value called to and read back Branden BOONE (ERA) ON 12.18.2018 AT 1556, SP Specimen Anatomical Collection Method Collection Time Receive d Time (Source) Location / / Volume Laterality Blood specimen 12/18/2018 2:48 PM 019 3:24 (specimen) CDT PM CDT Christopher Frank MD LAB - BLOOD ORDERABLES Performing Organization Address City/State/ZIP Code Phon e Number M [facility] [address] [place], [place] [address] [facility] [address] [phone] (ABNORMAL) Comprehensive metabolic panel (12/18/2018 2:48 PM T) athologist Signature Sodium 141 133 - 144 12/18/2018 [place] mmol/L 3:44 PM [facility] Potassium 3.5 3.4 - 5.3 12/18/2018 [place] mmol/L 3:44 PM [facility] Chloride 105 94 - 109 12/18/2018 [place] mmol/L 3:44 PM [facility] Carbon Dioxide 28 20 - 32 12/18/2018 [place] mmol/L 3:51 PM [facility] Anion Gap 8 3 - 14 12/18/2018 [place] mmol/L 3:51 PM [facility] Glucose 124 (H) 70 - 99 12/18/2018 [place] mg/dL 3:51 PM [facility] Urea Nitrogen 4 (L) 7 - 30 12/18/2018 [place] mg/dL 3:51 PM [facility] Creatinine 0.59 0.52 - 12/18/2018 [facility] 1.04 mg/dL 3:51 PM [facility] GFR Estimate >90 >60 12/18/2018 [place] mL/min/{1. 3:51 PM [facility] 73_m2} HOSPITAL Comment: Non GFR Calc Starting 02/03/2018, serum creatinine ba sed estimated GFR (eGFR) will be calculated using the Chronic Kidney Dise [facility] Epidemiology Collaboration (CKD-EPI) equation. GFR Estimate If >90 >60 mL/min/{1.73_m2} 12/18/2018 3: 51 PM [facility] Comment: GFR Calc Starting 02/03/2018, serum creatinine ba sed estimated GFR (eGFR) will be calculated using the Chronic Kidney Dise [facility] Epidemiology Collaboration (CKD-EPI) equation. Calcium 8.5 8.5 - 10.1 12/18/2018 3:51 PM [place] R IDGES mg/dL [facility] Bilirubin Total 0.7 0.2 - 1.3 mg/dL 12/18/2018 3:53 PM [facility] Albumin 3.9 3.4 - 5.0 g/dL 12/18/2018 3:53 PM [facility] Protein Total 8.3 6.8 - 8.8 g/dL 12/18/2018 3:53 PM [facility] Alkaline Phosphatase 151 (H) 40 - 150 U/L 12/18/2018 3:53 PM [facility] ALT 172 (H) 0 - 50 U/L 12/18/2018 3:[address] [facility] AST 228 (H) 0 - 45 U/L 12/18/2018 3:[address] [facility] Specimen Anatomical Collection Method Collection Time Receive d Time (Source) Location / / Volume Laterality Blood specimen 12/18/2018 2:48 PM 019 3:24 (specimen) CDT PM CDT Christopher Frank MD LAB - BLOOD ORDERABLES Performing Organization Address City/State/ZIP Code Phon e Number M [place] [address] [place] [address] HOSPITAL [facility] [address] [phone] (ABNORMAL) CBC with platelets differential (12/18/2018 2:48 PM CDT) [facility] Method Time Signature WBC 3.2 (L) 4.0 - 12/18/2018 [facility] 11.0 3:28 PM [facility] 10e9/L [facility] RBC Count 4.32 3.8 - 5.2 12/18/2018 [facility] 10e12/L 3:28 PM [facility] Hemoglobin 14.3 11.7 - 12/18/2018 [facility] 15.7 g/dL 3:28 PM [facility] Hematocrit 41.9 35.0 - 12/18/2018 [facility] 47.0 % 3:28 PM [facility] MCV 97 78 - 100 12/18/2018 [facility] fl 3:28 PM [facility] MCH 33.1 (H) 26.5 - 12/18/2018 [facility] 33.0 pg 3:28 PM [facility] MCHC 34.1 31.5 - 12/18/2018 [facility] 36.5 g/dL 3:28 PM [facility] RDW 13.2 10.0 - 12/18/2018 [facility] 15.0 % 3:28 PM [facility] Platelet Count 97 (L) 150 - 450 12/18/2018 [facility] 10e9/L 3:28 PM [facility] Diff Method Automated 12/18/2018 [facility] Method 3:28 PM [facility] % Neutrophils 36.5 % 12/18/2018 [facility] 3:28 PM [facility] % Lymphocytes 47.0 % 12/18/2018 [facility] 3:28 PM [facility] % Monocytes 10.5 % 12/18/2018 [facility] 3:28 PM [facility] % Eosinophils 3.8 % 12/18/2018 [facility] 3:28 PM [facility] % Basophils 1.6 % 12/18/2018 [facility] 3:28 PM [facility] % Immature 0.6 % 12/18/2018 [facility] Granulocytes 3:28 PM [facility] Nucleated RBCs 0 0 /100 12/18/2018 [facility] 3:28 PM [facility] Absolute 1.2 (L) 1.6 - 8.3 12/18/2018 [facility] Neutrophil 10e9/L 3:28 PM [facility] Absolute 1.5 0.8 - 5.3 12/18/2018 [facility] Lymphocytes 10e9/L 3:28 PM [facility] Absolute 0.3 0.0 - 1.3 12/18/2018 [facility] Monocytes 10e9/L 3:28 PM [facility] Absolute 0.1 0.0 - 0.7 12/18/2018 [facility] Eosinophils 10e9/L 3:28 PM [facility] Absolute 0.1 0.0 - 0.2 12/18/2018 [facility] Basophils 10e9/L 3:28 PM [facility] Abs Immature 0.0 0 - 0.4 12/18/2018 [facility] Granulocytes 10e9/L 3:28 PM [facility] Absolute 0.0 12/18/2018 [facility] Nucleated RBC 3:28 PM [facility] Specimen Anatomical Collection Method Collection Time Receive d Time (Source) Location / / Volume Laterality Blood specimen 12/18/2018 2:48 PM 019 3:24 (specimen) CDT PM CDT Christopher Frank MD LAB - BLOOD ORDERABLES Performing Organization Address City/State/ZIP Code Phon e Number M [facility] [address] [place], [place] [address] [facility] [address] [place], [place] [address]33 [facility] [phone] documented in this encounter Visit Diagnoses Diagnosis [...] documented as of this encounter Care Teams Tinner Helper Relationship Specialty Start Date End Date Clinic, [facility] PCP - General 01/20/18 06/28/21 [facility] [place] [address] Tatyana Haas APRN STAINED GLASS WINDOW DESIGNER Assigned PCP 08/02/18 01/29/20 [place] [facility] [address] [facility] [address] [place] [address] documented as of this encounter
--- OUTSIDE RECORDS SUMMARY | 2021-11-28 13:43 | XMS_ITS | Encounter Summary ---
:1980 Author Organization [place] Address [address] [facility] [place] [address] Care Team Providers Name Role Phone Clinic, [facility] Primary Care Provide r Guerita Haasherb Bills GOLF CADDY ORE CRUSHER Unavailable [phone] Encounter Details Date Type Department Care [...] at Date Recorded Female 01/14/2020 10:57 AM REPLANTING MACHINE CREW COVID-19 Exposure Response Date Recorded In the last month, have you been in contact with No / Unsure 12/31/2019 2:41 PM REPLANTING MACHINE CREW someone who was confirmed or suspected to have Coronavirus / COVID-19? documented as of this encounter Plan of Treatment Upcoming Encounters Date Type Specialty Care Team Description 11/29/2021 Office Visit Wound Care Luis Camara DPM [address] [place] [address] (Wo rk) 01/21/2022 Office Visit Gastroenterology Juanis Levi [address] [place] [address] Luis Fernando Miles MD 516 [facility] [address] [place], [place] [address] documented as of this encounter Visit Diagnoses Not on filedocumented in this encounter Additional Health Concerns Assessment Noted Time PHQ-9 Depression Total Score: 6 12/27/2019 9:38 AM REPLANTING MACHINE CREW documented as of this encounter Care Teams Wireless Sales Expert Relationship Specialty Start Date End Date Clinic, [facility] PCP - General 01/20/18 06/28/[address] [place] [address] Tatyana Haas APRN ORE CRUSHER Assigned PCP 08/02/18 01/29/20 [facility] [address] [facility] [address] [place] [address] documented as of this encounter
--- OUTSIDE RECORDS SUMMARY | 2021-11-28 13:43 | XMS_ITS | Encounter Summary ---
:1980 Author Organization [place] Address [facility] [place] [address] Care Team Providers Name Role Phone Clinic, [facility] Primary Care Provide r Tatyana Haas LOCAL INTERMODAL TRUCK DRIVER HOSPITALITY TEAM MEMBER Unavailable [phone] Stephani Pina LOCAL INTERMODAL TRUCK DRIVER HOSPITALITY TEAM MEMBER Unavailable Encounter Details Date Type Department Care Team Description 01/18/2020 Telephone [facility] Generic, [facility] In abigail Rivera MD [address] [place] [address] Social History Tobacco Use Types Packs/Day Years Used Date Smoking Tobacco: Every Day Cigarettes 0.3 10 Smokeless Tobacco: Never Comments: 5-8 cigarettes a day Alcohol Use Standard Drinks/Week Comments Yes 0 (1 standard drink = 0.6 oz pure alcoho l) drinking a pint of vodka daily Sex Assigned at Date Recorded Female 01/14/2020 10:57 AM MEDIA TRAFFIC MANAGER COVID-19 Exposure Response Date Recorded In the last month, have you been in contact with No / Unsure 07/12/2020 11:10 AM CDT someone who was confirmed or suspected to have Coronavirus / COVID-19? documented as of this encounter Miscellaneous Notes Telephone Encounter - Brittnee Lainez - 03/08/2020 2:53 PM CST ----- Message from OLGA Deshpande sent at 03/08/2020 1:47 PM MEDIA TRAFFIC MANAGER ----- Regarding: Set up appointments for client at [facility] Patient Name: ??See above Location of programming: [facility] Start Date: 03/13/2020 Group: ([id number] M, W, TH 5:30PM Provider: OLGA Baron Number of visits to be scheduled: 17 Length/Duration of Appointment in minutes: 120 Visit Type (VIDEO/TELEPHONE/IN-PERSON): Video ([id number]) Additional notes: Thanks OLGA Baron A TRAFFIC MANAGER Telephone Encounter - Brittnee Lainez - 03/02/2020 3:11 PM CST ----- Message from OLGA Deshpande sent at 03/02/2020 2:17 PM MEDIA TRAFFIC MANAGER ----- Regarding: Add IOP CD Phase I appointments for client at [facility] Patient Name: ??See above Location of programming: [facility] Start Date:03/02/2020 Group: ([id number] M, T, W, TH 5:30PM Provider: OLGA Baron Number of visits to be scheduled: 5 Length/Duration of Appointment in minutes: M, W, TH 120 T 180 Visit Type (VIDEO/TELEPHONE/IN-PERSON): Video ([id number]) Additional notes: Thanks OLGA Baron A TRAFFIC MANAGER Telephone Encounter - Leticia Donohue - 01/19/2020 3:16 PM CST ----- Message from OLGA Deshpande sent at 01/19/2020 2:58 PM MEDIA TRAFFIC MANAGER ----- Regarding: Move 1:1 appointment for client from 01/18 to 01/19 Please move the 1:1 appointment scheduled for the above client with me for January 18 at 4:30PM to January 19 at 4:30PM at the [facility]. [id number] video appointment. My provider ID is: [id number]. Thanks OLGA Baron A TRAFFIC MANAGER Telephone Encounter - Victoria Nunes - 01/18/2020 1:50 PM CST ----- Message from OLGA Deshpande sent at 01/17/2020 3:35 PM MEDIA TRAFFIC MANAGER ----- Regarding: RE: Referring to [facility] Please arrange for a 1:1 appointment for the above client via video with me on January 4:30PM. My provider ID is; [id number] Patient Name: See above?? Location of programming: [facility] clinic Start Date: 01/19/2020 Group: ([id number] M, T, W, TH 5:30PM Provider: OLGA Baron Number of visits to be scheduled: 26 Length/Duration of Appointment in minutes: M, W, Th, 120 T 180 Visit Type (VIDEO/TELEPHONE/IN-PERSON): Video ([id number]) Additional notes: Thanks OLGA Baron ----- Message ----- From: Jnue Porter LADC Sent: 01/14/2020 2:30 PM MEDIA TRAFFIC MANAGER To: OLGA Deshpande, Beh Outpatient Intake Subject: Referring to [facility] Hey- I've referred this patient to [facility]. Comp assessment completed. She is likely to discharge from today 01/14/2020 and is instructed to follow up with Britton to schedule. Please reach out to patient to coordinate. Thanks! June #[id number] A TRAFFIC MANAGER documented in this encounter Plan of Treatment Upcoming Encounters Date Type Specialty Care Team Description 11/29/2021 Office Visit Wound Care Luis Camara DPM [address] [place] [address] (Wo rk) 01/21/2022 Office Visit Gastroenterology Juanis Levi [address] [place] [address] Luis Fernando Miles MD [address] [facility] [place], [place] [address] documented as of this encounter Visit Diagnoses Diagnosis Alcohol abuse, continuous - Primary Nondependent alcohol abuse, continuous d rinking behavior documented in this encounter Additional Health Concerns Assessment Noted Time PHQ-9 Depression Total Score: 6 12/27/2019 9:38 AM MEDIA TRAFFIC MANAGER documented as of this encounter Care Teams Screen Handler Relationship Specialty Start Date End Date Clinic, [facility] PCP - General 01/20/18 06/28/21 [address] [place] [address] Tatyana Haas APRN HOSPITALITY TEAM MEMBER Assigned PCP 08/02/18 01/29/20 [facility] [address] [facility] [address] [place], [place] [address] Stephani Pina APRN HOSPITALITY TEAM MEMBER Assigned PCP 01/30/20 12/30/[address] [place] [address] [address] [place] [address] documented as of this encounter
--- OUTSIDE RECORDS SUMMARY | 2021-11-28 13:43 | XMS_ITS | Encounter Summary ---
:1980 Author Organization [place] Address [facility] [place] [address] Care Team Providers Name Role Phone Clinic, [facility] Primary Care Provide r Tatyana Haas Sanju GROUND INSTRUCTOR BASIC PEST CONTROL WORKER HELPER Unavailable [phone] Reason for Visit Reason Onset Date Comments No Show 02/16/2019 Encounter Details Date Type Department Care Team Description 02/16/[address] [facility] NO SHOW (P rimary Dx) Clinic Ashly Russ PA-C [address] [place] [address] [place] [address] [address] [facility] 700 [place] [address] [phone] Social History Tobacco Use Types Packs/Day Years Used Date Smoking Tobacco: Every Day Cigarettes 0.3 10 Smokeless Tobacco: Never Comments: 5-8 cigarettes a day Alcohol Use Standard Drinks/Week Comments Not Currently 0 (1 standard drink = 0.6 oz pure alcoho l) sober 16 days Sex Assigned at Date Recorded Female 01/14/2020 10:57 AM SLOT KEY PERSON documented as of this encounter Progress Notes Hillary Sears MA - 02/16/2019 1:20 PM CST . This patient was a no show for this scheduled appointment. KEY PERSON documented in this encounter Plan of Treatment Upcoming Encounters Date Type Specialty Care Team Description 11/29/2021 Office Visit Wound Care Luis Camara DPM [address] [facility] [place], [place] [address] (Wo rk) 01/21/2022 Office Visit Gastroenterology Juanis Levi [address] [place] [address] Luis Fernando Miles MD 516 [facility] [place] [address] documented as of this encounter Visit Diagnoses Diagnosis NO SHOW - Primary documented in this encounter Additional Health Concerns Assessment Noted Time PHQ-9 Depression Total Score: 10 07/08/2018 1:27 PM CD T documented as of this encounter Care Teams Office Services Clerk Relationship Specialty Start Date End Date Clinic, [facility] PCP - General 01/20/18 06/28/[address] [place] [address] Tatyana Haas APRN PEST CONTROL WORKER HELPER Assigned PCP 08/02/18 01/29/20 [facility] [address] [facility] [address] [place] [address] documented as of this encounter
--- OUTSIDE RECORDS SUMMARY | 2021-11-28 13:43 | XMS_ITS | Encounter Summary ---
:1980 Author Organization Home Address [address] [facility] [place] [address] Care Team Providers Name Role Phone Clinic, [facility] Primary Care Provide r Guerita Haasdia Sanju RETAIL SUPERVISOR CONSULTANT RN Unavailable [phone] Encounter Details Date Type Department Care [...] Date Recorded Female 01/14/2020 10:57 AM DIRECTOR IT documented as of this encounter Plan of Treatment Upcoming Encounters Date Type Specialty Care Team Description 11/29/2021 Office Visit Wound Care Luis Camara DPM [address] [place], [place] [address] (Wo rk) 01/21/2022 Office Visit Gastroenterology Juanis Levi [address] [place] [address] Luis Fernando Miles MD 516 [facility] [address] [place] [address] documented as of this encounter Visit Diagnoses Not on filedocumented in this encounter Additional Health Concerns Assessment Noted Time PHQ-9 Depression Total Score: 10 07/08/2018 1:27 PM CD T documented as of this encounter Care Teams Mission Assessment Specialist Relationship Specialty Start Date End Date Clinic, [facility] PCP - General 01/20/18 06/28/21 [facility] [place] [phone] Tatyana Haas APRN CONSULTANT RN Assigned PCP 08/02/18 01/29/20 [place] [facility] [address] [facility] [address] [place] [address] documented as of this encounter
--- OUTSIDE RECORDS SUMMARY | 2021-11-28 13:43 | XMS_ITS | Encounter Summary ---
:1980 Author Organization [place] Address [address] [facility] [place] [address] Care Team Providers Name Role Phone Clinic, [facility] Primary Care Provide r Guerita Haasdia Sanju SLOTTER OPERATOR HELPER SERVER SOFTWARE ENGINEER Unavailable [phone] Encounter Details Date Type Department Care [...] at Date Recorded Female 01/14/2020 10:57 AM PRESCHOOL ASSISTANT DIRECTOR documented as of this encounter Plan of Treatment Upcoming Encounters Date Type Specialty Care Team Description 11/29/2021 Office Visit Wound Care Luis Camara DPM [address] [place], [place] [address] (Wo rk) 01/21/2022 Office Visit Gastroenterology Juanis Levi [address] [place] [address] Luis Fernando Miles MD [address] [facility] [address] [place] [address] documented as of this encounter Visit Diagnoses Not on filedocumented in this encounter Additional Health Concerns Assessment Noted Time PHQ-9 Depression Total Score: 10 07/08/2018 1:27 PM CD T documented as of this encounter Care Teams Craniologist Relationship Specialty Start Date End Date Clinic, [facility] PCP - General 01/20/18 06/28/21 [facility], [place] [phone] Taty[place] Haas APRN SERVER SOFTWARE ENGINEER Assigned PCP 08/02/18 01/29/20 [place] [facility] [address] [facility] [address] [place] [address] documented as of this encounter
--- OUTSIDE RECORDS SUMMARY | 2021-11-28 13:43 | XMS_ITS | Encounter Summary ---
:1980 Author Organization [place] Address [address] [facility] [place] [address] Care Team Providers Name Role Phone Clinic, [facility] Primary Care Provide r Guerita Haasherb Bills STORE GROCERY MERCHANDISER WINDOWS VMWARE ENGINEER Unavailable [phone] Encounter Details Date Type Department Care [...] at Date Recorded Female 01/14/2020 10:57 AM BEAUTY CULTURIST COVID-19 Exposure Response Date Recorded In the last month, have you been in contact with No / Unsure 01/07/2020 9:15 AM BEAUTY CULTURIST someone who was confirmed or suspected to have Coronavirus / COVID-19? documented as of this encounter Plan of Treatment Upcoming Encounters Date Type Specialty Care Team Description 11/29/2021 Office Visit Wound Care Luis Camara DPM [address] [place] [address] (Wo rk) 01/21/2022 Office Visit Gastroenterology Juanis Levi [address] [place] [address] Luis Fernando Miles MD 516 [facility] [address] [place], [place] [address] documented as of this encounter Visit Diagnoses Not on filedocumented in this encounter Additional Health Concerns Assessment Noted Time PHQ-9 Depression Total Score: 6 12/27/2019 9:38 AM BEAUTY CULTURIST documented as of this encounter Care Teams Water Service Supervisor Relationship Specialty Start Date End Date Clinic, [facility] PCP - General 01/20/18 06/28/[address] [place] [address] Tatyana Haas APRN WINDOWS VMWARE ENGINEER Assigned PCP 08/02/18 01/29/20 [facility] [address] [facility] [address] [place] [address] documented as of this encounter
--- OUTSIDE RECORDS SUMMARY | 2021-11-28 13:43 | XMS_ITS | Encounter Summary ---
:1980 Author Organization [place] Address [address] [facility] [place] [address] Care Team Providers Name Role Phone Clinic, [facility] Primary Care Provide r Guerita Haasdia Sanju VE TEACHER SPECTRAL SCIENTIST Unavailable [phone] Encounter Details Date Type Department Care [...] at Date Recorded Female 01/14/2020 10:57 AM GRINDER OPERATOR SURFACE TOOL documented as of this encounter Plan of Treatment Upcoming Encounters Date Type Specialty Care Team Description 11/29/2021 Office Visit Wound Care Luis Camara DPM [address] [place], [place] [address] (Wo rk) 01/21/2022 Office Visit Gastroenterology Juanis Levi [address] [place] [address] Luis Fernando Miles MD [address] [facility] [address] [place] [address] documented as of this encounter Visit Diagnoses Not on filedocumented in this encounter Additional Health Concerns Assessment Noted Time PHQ-9 Depression Total Score: 10 07/08/2018 1:27 PM CD T documented as of this encounter Care Teams Helper/Driver Relationship Specialty Start Date End Date Clinic, [facility] PCP - General 01/20/18 06/28/21 [facility], [place] [phone] Taty[place] Haas APRN SPECTRAL SCIENTIST Assigned PCP 08/02/18 01/29/20 [place] [facility] [address] [facility] [address] [place] [address] documented as of this encounter
--- OUTSIDE RECORDS SUMMARY | 2021-11-28 13:43 | XMS_ITS | Encounter Summary ---
:1980 Author Organization [place] Address [address] [place] [address] Care Team Providers Name Role Phone Clinic, [facility] Primary Care Provide r Tatyana Haas Sanju CLOTH HANDLER GRAPHICS PROGRAMMER Unavailable [phone] Reason for Visit Reason Comments Alcohol Problem Dizziness Encounter Details Date Type Department Care Team Description 08/23/2018 Emergency [facility] Loan Moise, PAMcC Dizziness; [facility] Emergency EMERGENCY PHYSICIANS Hyp omagnesemia; Dept PA Hypokalemia; [address] Alcohol withdrawal, uncomplicated (H) [place] [address] [phone] Social History Tobacco Use Types Packs/Day Years Used Date Smoking Tobacco: Every Day Cigarettes 0.3 10 Smokeless Tobacco: Never Comments: 5-8 cigarettes a day Alcohol Use Standard Drinks/Week Comments Not Currently 0 (1 standard drink = 0.6 oz pure alcoho l) sober 16 days Sex Assigned at Date Recorded Female 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 Alcohol Withdrawal (Mosotho)Hypokalemia (Mosotho)Hypomagnesemia, Discharge Instructions (Mosotho)documented in this encounter Medications at Time of [...] has current or past drug history. PCP: Esthela, [facility] Medical Review of Systems Constitutional: [...] Prolonged QT Abnormal ECG Rate 80 bpm. MO interval 162 ms. QRS duration 94 ms. [...] Discharge Medications: No discharge medications. Scribe Disclosure: Pee Powers, am serving as a scribe at 12:03 PM on 08/23/2018 to document services personally performed by Loan Moise PA-C based on my observations and the provider's statements to me. [facility] EM[facility] Loan Moise PA-C 08/23/182015 documented in this encounter Plan of Treatment Upcoming Encounters Date Type Specialty Care Team Description 11/29/2021 Office Visit Wound Care Luis Camara DPM [address] [place] [address] (Wo rk) 01/21/2022 Office Visit Gastroenterology Juanis Levi [address] [place] [address] Luis Fernando Miles MD [address] [facility] [address] [place] [address] documented as of this encounter [...] Signature HCG Qual Urine Negative NEG^Negati 08/23/2018 [place] ve 12:52 PM CDT [facility] Comment: This test is for screening purposes. ??R esults should be interpreted along with the clinical picture. ??Confirmation te sting is available if warranted by ordering [id number], HCG Quantitative Pregna ncy. Specimen Anatomical Collection Method Collection Time Receive d Time (Source) Location / / Volume Laterality Urine specimen 08/23/2018 12:38 9 (specimen) PM CDT 12:43 PM CDT Loan Moise PA-C LAB - URINE ORDERABLES Performing Organization Address City/State/ZIP Code Phon e Number [facility] [address] [address] [facility] [address] [address] [facility] [phone] (ABNORMAL) UA with Microscopic (08/23/2018 12:38 PM CDT) Patholo gist Method Time Signature Color Urine Yellow 08/23/2018 [place] 12:49 PM [facility] Appearance Urine Clear 08/23/2018 [facility] 12:49 PM [facility] Glucose Urine Negative NEG^Negat 08/23/2018 [place] mg/dL 12:49 PM [facility] Bilirubin Urine Negative NEG^Negat 08/23/2018 [place]ula 12:49 PM [facility] Ketones Urine Negative NEG^Negat 08/23/2018 [place] mg/dL 12:49 PM [facility] Specific [place] 1.017 1.003 - 08/23/2018 [place] Urine 1.035 12:49 PM [facility] Blood Urine Negative NEG^Negat 08/23/2018 [place] paula 12:49 PM [facility] pH Urine 7.5 (H) 5.0 - 7.0 08/23/2018 [place] pH 12:49 PM [facility] Protein Albumin Negative NEG^Negat 08/23/2018 [place] Urine paula mg/dL 12:49 PM [facility] Urobilinogen 8.0 (H) 0.0 - 2.0 08/23/2018 [place] mg/dL mg/dL 12:49 PM [facility] Nitrite Urine Negative NEG^Negat 08/23/2018 [place] 12:49 PM [facility] Leukocyte Negative NEG^Negat 08/23/2018 [place] Esterase Urine [place] 12:49 PM [facility] Source Midstream 08/23/2018 [place] Urine 12:39 PM [facility] WBC Urine <1 0 - 5 08/23/2018 [facility] /HPF 12:49 PM [facility] RBC Urine <1 0 - 2 08/23/2018 [facility] /HPF 12:49 PM [facility] Squamous 1 0 - 1 08/23/2018 [place] Epithelial /HPF /HPF 12:49 PM [facility] Mucous Urine Present (A) NEG^Negat 08/23/2018 [place] /LPF 12:49 PM [facility] Specimen (Source) Anatomical Collection Method Collection Time Re ceived Time Location / / Volume Laterality Examination of 08/23/2018 12:38 9 midstream urine PM CDT 12:43 PM CDT specimen (procedure) Loan Moise PA-C LAB - URINE ORDERABLES Performing Organization Address City/State/ZIP Code Phon e Number M [facility] [address] [place], [place] [address] [facility] [address] [place], [place] [address] [place] [address] EKG 12-lead, tracing only (08/23/2018 12:25 PM [...] Signature Sodium 138 133 - 144 08/23/2018 [place] mmol/L 12:43 PM [facility] Potassium 3.1 (L) 3.4 - 5.3 08/23/2018 [place] mmol/L 12:43 PM [facility] Chloride 103 94 - 109 08/23/2018 [place] mmol/L 12:43 PM [facility] Carbon Dioxide 30 20 - 32 08/23/2018 [facility] mmol/L 12:50 PM [facility] Anion Gap 4 3 - 14 08/23/2018 [place] mmol/L 12:50 PM [facility] Glucose 123 (H) 70 - 99 08/23/2018 [place] mg/dL 12:50 PM [facility] Urea Nitrogen 5 (L) 7 - 30 08/23/2018 [place] mg/dL 12:50 PM [facility] Creatinine 0.57 0.52 - 08/23/2018 [facility] 1.04 mg/dL 12:50 PM [facility] GFR Estimate >90 >60 08/23/2018 [place] mL/min/{1. 12:50 PM [facility] 73_m2} HOSPITAL Comment: Non GFR Calc Starting 02/03/2018, serum creatinine ba sed estimated GFR (eGFR) will be calculated using the Chronic Kidney Dise ase Epidemiology Collaboration (CKD-EPI) equation. GFR Estimate If >90 >60 mL/min/{1.73_m2} 08/23/2018 12 :50 PM [facility] Comment: GFR Calc Starting 02/03/2018, serum creatinine ba sed estimated GFR (eGFR) will be calculated using the Chronic Kidney Dise ase Epidemiology Collaboration (CKD-EPI) equation. Calcium 8.8 8.5 - 10.1 08/23/2018 12:50 PM [facility] mg/dL [facility] Bilirubin Total 1.6 (H) 0.2 - 1.3 mg/dL 08/23/2018 12:52 P [facility] Albumin 3.8 3.4 - 5.0 g/dL 08/23/2018 12:52 PM [facility] Protein Total 7.9 6.8 - 8.8 g/dL 08/23/2018 12:52 PM [facility] Alkaline Phosphatase 158 (H) 40 - 150 U/L 08/23/2018 12:52 PM [facility] ALT 192 (H) 0 - 50 U/L 08/23/2018 12:52 PM [facility] AST 242 (H) 0 - 45 U/L 08/23/2018 12:52 PM [facility] Specimen Anatomical Collection Method Collection Time Receive d Time (Source) Location / / Volume Laterality Blood specimen 08/23/2018 12:22 9 (specimen) PM CDT 12:30 PM CDT Loan Moise PA-C LAB - BLOOD ORDERABLES Performing Organization Address City/State/ZIP Code Phon e Number [place] [address] [address] [address] [facility] [address] [phone] (ABNORMAL) Magnesium (08/23/2018 12:22 PM CDT) P athologist Signature Magnesium 1.4 (L) 1.6 - 2.3 08/23/2018 [place] mg/dL 12:52 PM [facility] Specimen Anatomical Collection Method Collection Time Receive d Time (Source) Location / / Volume Laterality Blood specimen 08/23/2018 12:22 9 (specimen) PM CDT 12:30 PM CDT Loan Moise PA-C LAB - BLOOD ORDERABLES Performing Organization Address City/State/ZIP Code Phon e Number [facility] [address] [place], [place] [address] [facility] [address] [place], [place] [address], [facility] [phone] Alcohol level blood (08/23/2018 12:22 PM CDT) P athologist Signature Ethanol g/dL <0.01 <0.01 g/dL 08/23/2018 [place] 12:52 PM T [facility] Specimen Anatomical Collection Method Collection Time Receive d Time (Source) Location / / Volume Laterality Blood specimen 08/23/2018 12:22 9 (specimen) PM CDT 12:30 PM CDT Loan Moise PA-C LAB - BLOOD ORDERABLES Performing Organization Address [facility]/ZIP Code Phon e Number [facility] [address] [place] [address] [place] [address] [address] [place], [place] [address], [facility] [phone] Troponin I (08/23/2018 12:22 PM CDT) P athologist Signature Troponin I ES <0.015 0.000 - 08/23/2018 [place] 0.045 ug/L 12:54 PM T [facility] Comment: The 99th percentile for upper reference [...] ORDERABLES Performing Organization Address City/[facility]/ZIP Code Phon e Number [facility] [address] [place], [place] [address] [facility] [address] [address], [facility] [phone] (ABNORMAL) CBC with platelets differential (08/23/2018 12:22 PM [facility] Method Time Signature WBC 3.1 (L) 4.0 - 08/23/2018 [facility] 11.0 12:33 PM [facility] 10e9/L [facility] RBC Count 4.22 3.8 - 5.2 08/23/2018 [facility] 10e12/L 12:33 [facility] Hemoglobin 13.7 11.7 - 08/23/2018 [facility] 15.7 g/dL 12:33 [facility] Hematocrit 39.6 35.0 - 08/23/2018 [facility] 47.0 % 12:33 [facility] MCV 94 78 - 100 08/23/2018 [facility] fl 12:33 [facility] MCH 32.5 26.5 - 08/23/2018 [facility] 33.0 pg 12:33 [facility] MCHC 34.6 31.5 - 08/23/2018 [facility] 36.5 g/dL 12:33 [facility] RDW 12.3 10.0 - 08/23/2018 [facility] 15.0 % 12:33 [facility] Platelet Count 82 (L) 150 - 450 08/23/2018 [facility] 10e9/L 12:33 [facility] Diff Method Automated 08/23/2018 [facility] Method 12:33 [facility] % Neutrophils 53.1 % 08/23/2018 [facility] 12:33 [facility] % Lymphocytes 34.9 % 08/23/2018 [facility] 12:33 [facility] % Monocytes 10.1 % 08/23/2018 [facility] 12:33 [facility] % Eosinophils 1.3 % 08/23/2018 [facility] 12:33 [facility] % Basophils 0.3 % 08/23/2018 [facility] 12:33 [facility] % Immature 0.3 % 08/23/2018 [facility] Granulocytes 12:33 [facility] Nucleated RBCs 0 0 /100 08/23/2018 [facility] 12:33 PM [facility] Absolute 1.6 1.6 - 8.3 08/23/2018 [facility] Neutrophil 10e9/L 12:33 PM [facility] Absolute 1.1 0.8 - 5.3 08/23/2018 [facility] Lymphocytes 10e9/L 12:33 PM [facility] Absolute 0.3 0.0 - 1.3 08/23/2018 [place] Monocytes 10e9/L 12:33 PM [facility] Absolute 0.0 0.0 - 0.7 08/23/2018 [facility] Eosinophils 10e9/L 12:33 PM [facility] Absolute 0.0 0.0 - 0.2 08/23/2018 [facility] Basophils 10e9/L 12:33 PM [facility] Abs Immature 0.0 0 - 0.4 08/23/2018 [facility] Granulocytes 10e9/L 12:33 PM [facility] Absolute 0.0 08/23/2018 [facility] Nucleated RBC 12:33 [facility] Specimen Anatomical Collection Method Collection Time Receive d Time (Source) Location / / Volume Laterality Blood specimen 08/23/2018 12:22 9 (specimen) PM CDT 12:30 PM CDT Loan Moise PA-C LAB - BLOOD ORDERABLES Performing Organization Address City/State/ZIP Code Phon e Number [place] [address] [address] [place] [address] [phone] documented in this encounter Visit Diagnoses Diagnosis [...] as of this encounter Care Teams Director Economic Relationship Specialty Start Date End Date Clinic, [facility] PCP - General 01/20/18 06/28/[address] [place] [address] Tatyana Haas, CLOTH HANDLER GRAPHICS PROGRAMMER Assigned PCP 08/02/18 01/29/20 [facility] [address] [facility] [address] [place] [address] documented as of this encounter
--- OUTSIDE RECORDS SUMMARY | 2021-11-28 13:43 | XMS_ITS | Encounter Summary ---
:1980 Author Organization [place] Address [facility] [place] [address] Care Team Providers Name Role Phone Clinic, [facility] Primary Care Provide r Waldo Tatyana N SCANNING SUPERVISOR DIESEL ENGINE FITTER Unavailable [phone] Reason for Visit Reason Onset Date Comments No Show 12/22/2018 Encounter Details Date Type Department Care Team Description 12/22/2018 [facility] [place] FARZANA Alvarez DIESEL ENGINE FITTER [address] [place] [address] [place] [address] [address] [place] [address] [phone] Social History Tobacco Use Types Packs/Day Years Used Date Smoking Tobacco: Every Day Cigarettes 0.3 10 Smokeless Tobacco: Never Comments: 5-8 cigarettes a day Alcohol Use Standard Drinks/Week Comments Not Currently 0 (1 standard drink = 0.6 oz pure alcoho l) sober 16 days Sex Assigned at Date Recorded Female 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 ING 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 documented in this encounter Plan of Treatment Upcoming Encounters Date Type Specialty Care Team Description 11/29/2021 Office Visit Wound Care Luis Camara DPM [address] [place], [place] [phone] (Wo rk) 01/21/2022 Office Visit Gastroenterology Juanis Levi [address] [place] [phone] Luis Fernando Miles MD [address] [facility] [address] [place], [place] [address] documented as of this encounter Visit Diagnoses Diagnosis NO SHOW - Primary documented in this encounter Additional Health Concerns Assessment Noted Time PHQ-9 Depression Total Score: 10 07/08/2018 1:27 PM CD T documented as of this encounter Care Teams Physiotherapy Aide Relationship Specialty Start Date End Date Clinic, [facility] PCP - General 01/20/18 06/28/[address] [place] [address] Tatyana Haas APRN DIESEL ENGINE FITTER Assigned PCP 08/02/18 01/29/20 [facility] [address] [facility] [address] [place] [address] documented as of this encounter
--- OUTSIDE RECORDS SUMMARY | 2021-11-28 13:43 | XMS_ITS | Encounter Summary ---
:1980 Author Organization [place] Address [facility] [place] [address] Care Team Providers Name Role Phone Clinic, [facility] Primary Care Provide r Tatyana Haas Sanju GEAR NICKER CONCRETE PAVER Unavailable [phone] Reason for Visit Reason Comments Alcohol Intoxication Encounter Details Date Type Department Care Team Description 02/28/2019 Emergency [facility] Eliud Manley, Alcohol withdrawal [facility] Emergency MD syndrome without Dept EMERGENCY PHYSICIANS complication (H) [address] [place], [place] [address] [address] [place] [address] [place] [address] (Wo rk) Social History Tobacco Use Types Packs/Day Years Used Date Smoking Tobacco: Every Day Cigarettes 0.3 10 Smokeless Tobacco: Never Comments: 5-8 cigarettes a day Alcohol Use Standard Drinks/Week Comments Not Currently 0 (1 standard drink = 0.6 oz pure alcoho l) sober 16 days Sex Assigned at Date Recorded Female 01/14/2020 10:57 AM ACCOUNTING 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 ASSISTANT documented as of this encounter Last Filed Vital Signs Vital Sign Reading Time Taken Comments Blood Pressure 117/76 02/28/2019 6:30 PM ACCOUNTING 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 ASSISTANT Pulse 92 02/28/2019 6:30 PM ACCOUNTING 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 ASSISTANT Temperature 37 ??C (98.6 ??F) 02/28/2019 1:43 PM ACCOUNTING 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 ASSISTANT Respiratory Rate 20 02/28/2019 1:43 PM ACCOUNTING 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 ASSISTANT Oxygen Saturation 99% 02/28/2019 6:30 PM ACCOUNTING 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 ASSISTANT Inhaled Oxygen Concentration - - Weight 83.6 kg (184 lb 4.9 oz) 02/28/2019 1:43 PM ACCOUNTING 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 ASSISTANT Height - - Body Mass Index 29.75 07/04/2018 9:43 PM CDT documented in this encounter Discharge Instructions Discharge InstructionsEliud Manley MD - 02/28/2019 5:37 PM ACCOUNTING 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 ASSISTANT Please proceed to detox and follow-up with alcohol counseling when released. Please return to the emergency department as needed for new or worsening symptoms including thoughtsof self-harm or suicide, thoughts of harming other people, any other concerning symptoms. 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 1539: I performed an exam of the patient [...] and subsequently transported in stable condition.Patient and [id number] counseled on results, diagnosis and disposition. They are understanding and agreeable to plan. Diagnosis: ICD-10-CM 1. Alcohol withdrawal syndrome without complication (H) F10.230 Disposition: Patient sent to detox. Scribe Disclosure: Mahsa Powers, am serving as a scribe at 3:34 PM on 02/28/2019 to document services personally performed by Eliud Manley MD based on my observations and the provider's statements to me. Mahsa Walsh 02/28/2019 [facility] Eliud Manley MD 03/02/19 2448 UNTING 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 ASSISTANT documented in this encounter Plan of Treatment Upcoming Encounters Date Type Specialty Care Team Description 11/29/2021 Office Visit Wound Care Luis Camara DPM [address] [place] [address] (Wo rk) 01/21/2022 Office Visit Gastroenterology Juanis Levi [address] [place] [address] Luis Fernando Miles MD [address] [facility] [place] [address] documented as of this encounter Procedures Procedure Name Priority Date/Time Associated Comments Diagnosis XR CHEST 2 VIEWS STAT 02/28/2019 4:29 PM Resul ts for this ACCOUNTING 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 ASSISTANT procedure are i n the results section. CBC WITH PLATELETS & STAT 02/28/2019 3:57 PM R esults for this DIFFERENTIAL ACCOUNTING 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 ASSISTANT procedure are i n the results section. INR STAT 02/28/2019 3:57 PM Results f or this ACCOUNTING 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 ASSISTANT procedure are i n the results section. LIPASE STAT 02/28/2019 3:57 PM Results f or this ACCOUNTING 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 ASSISTANT procedure are i n the results section. COMPREHENSIVE STAT 02/28/2019 3:57 PM Results for this METABOLIC PANEL ACCOUNTING 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 ASSISTANT procedure ar e in the results section. ETHYL ALCOHOL LEVEL STAT 02/28/2019 3:57 PM Re sults for this ACCOUNTING 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 ASSISTANT procedure are i n the results section. documented in this encounter Results XR Chest 2 Views (02/28/2019 4:29 PM ACCOUNTING 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 ASSISTANT) Anatomical Region Laterality Modality Chest Digital Radiography Specimen (Source) Anatomical Location Collection Method / Collectio n Time Received Time / Laterality Volume Impressions 02/28/2019 6:42 PM ACCOUNTING 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 ASSISTANT IMPRESSION: No evidence of acute cardiopulmonary disease is seen. CAIO TERRAZAS MD Narrative 02/28/2019 6:42 PM ACCOUNTING 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 ASSISTANT CHEST TWO VIEW ?? 02/28/2019 4:29 PM [...] IMAGING ORDER JEFFERY INR (02/28/2019 3:57 PM ACCOUNTING 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 ASSISTANT) athologist Signature INR 0.92 0.86 - 1.14 02/28/2019 [facility] 4:34 PM [facility] Specimen Anatomical Collection Method Collection Time Receive d Time (Source) Location / / Volume Laterality Blood specimen 02/28/2019 3:57 PM 020 4:05 (specimen) ACCOUNTING 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 ASSISTANT PM ACCOUNTING 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 ASSISTANT Eliud Manley MD LAB - BLOOD ORDERABLES Performing Organization Address [facility] Phon e Number [facility] [address] [place], [place] [address] [facility] [address] [address] 7, [facility] [phone] (ABNORMAL) Alcohol ethyl (02/28/2019 3:57 PM ACCOUNTING 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 ASSISTANT) athologist Signature Ethanol g/dL 0.22 (H) <0.01 g/dL 02/28/2019 [facility] 4:34 PM [facility] Specimen Anatomical Collection Method Collection Time Receive d Time (Source) Location / / Volume Laterality Blood specimen 02/28/2019 3:57 PM 020 4:05 (specimen) ACCOUNTING 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 ASSISTANT PM ACCOUNTING 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 ASSISTANT Eliud Manley MD LAB - BLOOD ORDERABLES Performing Organization Address [facility] Phon e Number [facility] [address], [place] [address] [facility] [address] [place], [place] [address] 7, [facility] [phone] Lipase (02/28/2019 3:57 PM ACCOUNTING 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 ASSISTANT) athologist Signature Lipase 145 73 - 393 02/28/2019 [facility] U/L 4:34 PM [facility] Specimen Anatomical Collection Method Collection Time Receive d Time (Source) Location / / Volume Laterality Blood specimen 02/28/2019 3:57 PM 020 4:05 (specimen) ACCOUNTING 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 ASSISTANT PM ACCOUNTING 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 ASSISTANT Eliud Manley MD LAB - BLOOD ORDERABLES Performing Organization Address City/[facility] Phon e Number [facility] [address], [place] [address] [facility] [address] [place], [place] [address] [phone] (ABNORMAL) Comprehensive metabolic panel (02/28/2019 3:57 PM [facility]) athologist Signature Sodium 140 133 - 144 02/28/2019 [facility] mmol/L 4:25 PM [facility] Potassium 3.7 3.4 - 5.3 02/28/2019 [facility] mmol/L 4:25 PM [facility] Chloride 106 94 - 109 02/28/2019 [facility] mmol/L 4:25 PM [facility] Carbon Dioxide 28 20 - 32 02/28/2019 [facility] mmol/L 4:32 PM [facility] Anion Gap 6 3 - 14 02/28/2019 [facility] mmol/L 4:32 PM [facility] Glucose 156 (H) 70 - 99 02/28/2019 [facility] mg/dL 4:32 PM [facility] Urea Nitrogen 9 7 - 30 02/28/2019 [facility] mg/dL 4:32 PM [facility] Creatinine 0.72 0.52 - 02/28/2019 [facility] 1.04 mg/dL 4:32 PM [facility] GFR Estimate >90 >60 02/28/2019 [facility] mL/min/{1. 4:32 PM [facility] 73_m2} HOSPITAL Comment: Non GFR Calc Starting 02/03/2018, serum creatinine ba sed estimated GFR (eGFR) will be calculated using the Chronic Kidney Dise [facility] Epidemiology Collaboration (CKD-EPI) equation. GFR Estimate If >90 >60 mL/min/{1.73_m2} 02/28/2019 4: 32 PM [facility] Comment: GFR Calc Starting 02/03/2018, serum creatinine ba sed estimated GFR (eGFR) will be calculated using the Chronic Kidney Dise [facility] Epidemiology Collaboration (CKD-EPI) equation. Calcium 8.8 8.5 - 10.1 02/28/2019 4:32 PM [facility] R IDGES mg/dL [facility] Bilirubin Total 0.5 0.2 - 1.3 mg/dL 02/28/2019 4:34 PM [facility] Albumin 3.8 3.4 - 5.0 g/dL 02/28/2019 4:34 PM [facility] Protein Total 8.5 6.8 - 8.8 g/dL 02/28/2019 4:34 PM [facility] Alkaline Phosphatase 155 (H) 40 - 150 U/L 02/28/2019 4:34 PM [facility] ALT 137 (H) 0 - 50 U/L 02/28/2019 4:34 PM [facility] AST 194 (H) 0 - 45 U/L 02/28/2019 4:34 PM [facility] Specimen Anatomical Collection Method Collection Time Receive d Time (Source) Location / / Volume Laterality Blood specimen 02/28/2019 3:57 PM 020 4:05 (specimen) ACCOUNTING 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 ASSISTANT PM ACCOUNTING 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 ASSISTANT Eliud Manley MD LAB - BLOOD ORDERABLES Performing Organization Address City/State/ZIP Code Phon e Number [place] [address] [place] [address] [facility] [address] [phone] (ABNORMAL) CBC with platelets differential (02/28/2019 3:57 PM [facility]) [facility] Method Time Signature WBC 2.3 (L) 4.0 - 02/28/2019 [facility] 11.0 4:11 PM [facility] 10e9/L [facility] RBC Count 4.22 3.8 - 5.2 02/28/2019 [facility] 10e12/L 4:11 PM [facility] Hemoglobin 14.1 11.7 - 02/28/2019 [facility] 15.7 g/dL 4:11 PM [facility] Hematocrit 41.7 35.0 - 02/28/2019 [facility] 47.0 % 4:11 PM [facility] MCV 99 78 - 100 02/28/2019 [facility] fl 4:11 PM [facility] MCH 33.4 (H) 26.5 - 02/28/2019 [facility] 33.0 pg 4:11 PM [facility] MCHC 33.8 31.5 - 02/28/2019 [facility] 36.5 g/dL 4:11 PM [facility] RDW 13.0 10.0 - 02/28/2019 [facility] 15.0 % 4:11 PM [facility] Platelet Count 96 (L) 150 - 450 02/28/2019 [facility] 10e9/L 4:11 PM [facility] Diff Method Automated 02/28/2019 [facility] Method 4:11 PM [facility] % Neutrophils 62.0 % 02/28/2019 [facility] 4:11 PM [facility] % Lymphocytes 32.8 % 02/28/2019 [facility] 4:11 PM [facility] % Monocytes 3.5 % 02/28/2019 [facility] 4:11 PM [facility] % Eosinophils 0.4 % 02/28/2019 [facility] 4:11 PM [facility] % Basophils 0.9 % 02/28/2019 [facility] 4:11 PM [facility] % Immature 0.4 % 02/28/2019 [facility] Granulocytes 4:11 PM [facility] Nucleated RBCs 0 0 /100 02/28/2019 [facility] 4:11 PM [facility] Absolute 1.4 (L) 1.6 - 8.3 02/28/2019 [facility] Neutrophil 10e9/L 4:11 PM [facility] Absolute 0.8 0.8 - 5.3 02/28/2019 [facility] Lymphocytes 10e9/L 4:11 PM [facility] Absolute 0.1 0.0 - 1.3 02/28/2019 [facility] Monocytes 10e9/L 4:11 PM [facility] Absolute 0.0 0.0 - 0.7 02/28/2019 [facility] Eosinophils 10e9/L 4:11 PM [facility] Absolute 0.0 0.0 - 0.2 02/28/2019 [facility] Basophils 10e9/L 4:11 PM [facility] Abs Immature 0.0 0 - 0.4 02/28/2019 [facility] Granulocytes 10e9/L 4:11 PM [facility] Absolute 0.0 02/28/2019 [facility] Nucleated RBC 4:11 PM [facility] Specimen Anatomical Collection Method Collection Time Receive d Time (Source) Location / / Volume Laterality Blood specimen 02/28/2019 3:57 PM 020 4:05 (specimen) ACCOUNTING 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 ASSISTANT PM ACCOUNTING 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 ASSISTANT Eliud Manley MD LAB - BLOOD ORDERABLES Performing Organization Address City/State/ZIP Code Phon e Number [facility] [address] [place], [place] [address] [facility] [address] [place], [place] [address] [phone] documented in this encounter Visit Diagnoses Diagnosis Alcohol withdrawal syndrome without comp lication (H) documented in this encounter Administered Medications Inactive Administered Medications - up to 3 most recent administrations Medication Order MAR Action Action Date Dose Rate Site LORazepam (ATIVAN) injection 1 mg Given 02/28/2019 4:10 PM ACCOUNTING 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 ASSISTANT 1 mg 1 mg, Intravenous, ONCE, On 02/28/19 at 1547, For 1 dose, This drug may cause significant respiratory depression. Monitor respiratory status and vital signs carefully for 1 hour after each dose. oxymetazoline (AFRIN) 0.05 % spray 2 spr ay Given 02/28/2019 4:10 PM ACCOUNTING 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 ASSISTANT 2 sprays 2 spray, Nasal, ONCE, On 02/28/19 at 1551, For 1 dose, Use for more than 3 consecutive days may cause rebound vasodilation. sodium chloride 0.9 % 1,000 mL with New Bag 02/28/2019 4:19 PM ACCOUNTING 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 ASSISTANT 1000 mL/hr Infuvite Adult 10 mL, thiamine 100 mg, folic acid 1 mg infusion 1,000 mL, at 1,000 mL/hr, Intravenous, ONCE, 1 dose, On 02/28/19 at 1547 documented in this encounter Active and Recently Administered Medications Times are shown in ACCOUNTING 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 ASSISTANT. Scheduled Medication Order 02/26/2019 02/27/2019 02/28/2019 LORazepam (ATIVAN) injection 1 mg (COMPLETED) 1609 (Given - Provider: Tarsha Lange RN) 1 mg, Intravenous, ONCE, On 02/28/19 at 1547, For 1 dose, This drug may cause significant respiratory depression. Monitor respiratory status and vital signs carefully for 1 hour after each dose. oxymetazoline (AFRIN) 0.05 % spray 2 spray (COMPLETED) 1609 (Given - Provider: Tarsha Lange RN) 2 spray, Nasal, ONCE, On 02/28/19 at 1551, For 1 dose, Use for more than 3 consecutive days may cause rebound vasodilation. sodium chloride 0.9 % 1,000 mL with Infu lacy Adult 10 mL, thiamine 100 mg, folic acid 1 mg infusion (COMPLETED) 1619 (Ne w Bag - Provider: Tarsha Lange, RN)1742 (Stopped - Provider: Nga Pina, GENARO) 1,000 mL, at 1,000 mL/hr, Intravenous, ONCE, 1 dose, On Sun 02/28 at 1547 documented in this encounter Additional Health Concerns Assessment Noted Time PHQ-9 Depression Total Score: 10 07/08/2018 1:27 PM CD T documented as of this encounter Care Teams Principle Industrial Hygienist Relationship Specialty Start Date End Date Clinic, [facility] PCP - General 01/20/18 06/28/21 [place] [address] Tatyana Haas APRN CONCRETE PAVER Assigned PCP 08/02/18 01/29/20 [place] [facility] [address] [facility] [address] [place], [place] [address] documented as of this encounter
--- OUTSIDE RECORDS SUMMARY | 2021-11-28 13:43 | XMS_ITS | Encounter Summary ---
:1980 Author Organization [place] Address [address] [facility] [place] [address] Care Team Providers Name Role Phone Clinic, [facility] Primary Care Provide r Guerita Haasdia Sanju PSYCHIATRIC ORDERLY PHOTOGRAPHIC ENLARGER OPERATOR Unavailable [phone] Encounter Details Date Type Department Care [...] at Date Recorded Female 01/14/2020 10:57 AM AIRPORT DRIVER documented as of this encounter Plan of Treatment Upcoming Encounters Date Type Specialty Care Team Description 11/29/2021 Office Visit Wound Care Luis Camara DPM [address] [place], [place] [address] (Wo rk) 01/21/2022 Office Visit Gastroenterology Juanis Levi [address] [place] [address] Luis Fernando Miles MD [address] [facility] [address] [place] [address] documented as of this encounter Visit Diagnoses Not on filedocumented in this encounter Additional Health Concerns Assessment Noted Time PHQ-9 Depression Total Score: 10 07/08/2018 1:27 PM CD T documented as of this encounter Care Teams Tank Stave Assembler Relationship Specialty Start Date End Date Clinic, [facility] PCP - General 01/20/18 06/28/21 [facility] [place] [id number] Tatyana Haas APRN PHOTOGRAPHIC ENLARGER OPERATOR Assigned PCP 08/02/18 01/29/20 [place] [facility] [address] [facility] [address] [place] [address] documented as of this encounter
--- OUTSIDE RECORDS SUMMARY | 2021-11-28 13:43 | XMS_ITS | Encounter Summary ---
:1980 Author Organization [place] Address [address] [facility] [place] [address] Care Team Providers Name Role Phone Clinic, [facility] Primary Care Provide r Guerita Haasdia Sanju REGISTERED VASCULAR TECHNOLOGIST (RVT) BUTCHER'S ASSISTANT Unavailable [phone] Encounter Details Date Type Department Care [...] at Date Recorded Female 01/14/2020 10:57 AM COMMUNITY RELATIONS ASSISTANT documented as of this encounter Plan of Treatment Upcoming Encounters Date Type Specialty Care Team Description 11/29/2021 Office Visit Wound Care Luis Camara DPM [address] [place], [place] [address] (Wo rk) 01/21/2022 Office Visit Gastroenterology Juanis Levi [address] [place] [address] Luis Fernando Miles MD [address] [facility] [address] [place] [address] documented as of this encounter Visit Diagnoses Not on filedocumented in this encounter Additional Health Concerns Assessment Noted Time PHQ-9 Depression Total Score: 10 07/08/2018 1:27 PM CD T documented as of this encounter Care Teams Photography Professor Relationship Specialty Start Date End Date Clinic, [facility] PCP - General 01/20/18 06/28/21 [facility] [place] [phone] Tatyana Haas APRN BUTCHER'S ASSISTANT Assigned PCP 08/02/18 01/29/20 [place] [facility] [address] [facility] [address] [place] [address] documented as of this encounter
--- OUTSIDE RECORDS SUMMARY | 2021-11-28 13:43 | XMS_ITS | Encounter Summary ---
:1980 Author Organization [place] Address [facility] [place] [address] Care Team Providers Name Role Phone Clinic, [facility] Primary Care Provide r Tatyana Haas ROCK WOOL INSULATOR CLAY PROCESSING LABOURER Unavailable [phone] Stephani Pina ROCK WOOL INSULATOR CLAY PROCESSING LABOURER Unavailable [phone] Tatyana Haas ROCK WOOL INSULATOR CLAY PROCESSING LABOURER Unavailable [phone] Stephani Pina ROCK WOOL INSULATOR CLAY PROCESSING LABOURER Unavailable [phone] Juanis Levi Primary Care Provider Elsa Yeh RN Unavailable Unavailable Rogelio Treadwell MD Unavailable [phone] Luis Camara DPM Unavailable [phone] Camryn Christina MD Unavailable Sintia Lange PA-C Unavailable Luis Fernando Miles MD Unavailable [phone] Reason for Visit Reason Onset Date Comments MH/CD Inpatient 01/11/2020 Encounter Details Date Type Department Care Team Description 01/11/2020 Telephone [facility] Generic, Behavioral MH/ CD Inpatient Behavioral Health In abigail Rivera MD [address] [place] [address] Social History Tobacco Use Types Packs/Day Years Used Date Smoking Tobacco: Every Day Cigarettes 0.3 10 Smokeless Tobacco: Never Comments: 5-8 cigarettes a day Alcohol Use Standard Drinks/Week Comments Yes 0 (1 standard drink = 0.6 oz pure alcoho l) drinking a pint of vodka daily Sex Assigned at Date Recorded Female 01/14/2020 10:57 AM PROJECT DEVELOPER COVID-19 Exposure Response Date Recorded In the last month, have you been in contact with No / Unsure 01/11/2020 8:00 PM PROJECT DEVELOPER someone who was confirmed or suspected to have Coronavirus / COVID-19? documented as of this encounter Miscellaneous Notes Telephone Encounter - Rocio Messer - 01/11/2020 10:22 PM CST S: Pt is a 39 yr old fem in [place] ED for detox from alcohol report by [...] and ready for behavioral bed placement: Yes ECT DEVELOPER documented in this encounter Plan of Treatment Upcoming Encounters Date Type Specialty Care Team Description 11/29/2021 Office Visit Wound Care Luis Camara DPM [address] [place] [address] (Wo rk) 01/21/2022 Office Visit Gastroenterology Juanis Levi [address] [place] [address] Luis Fernando Miles MD [address] [facility] [address] [place], [place] [address] documented as of this encounter Visit Diagnoses Not on filedocumented in this encounter Additional Health Concerns Infection Onset Date Last Indicated Resolved Time MRSAComment: Added from external infection. 11/07/201406/18 Assessment Noted Time PHQ-9 Depression Total Score: 6 12/27/2019 9:38 AM PROJECT DEVELOPER documented as of this encounter Care Teams Writing Manager Relationship Specialty Start Date End Date Clinic, [facility] PCP - General 01/20/[address] [id number] Juanis Levi PCP - General Addiction Medicine 06/29/21 [address] [place] [address] Tatyana Haas, Assigned PCP 08/02/18 01/29/20 ROCK WOOL INSULATOR CLAY PROCESSING LABOURER [facility] [address] [facility] [address] [place] [address] Stephani Pina, Assigned PCP 01/30/20 12/30/20 ROCK WOOL INSULATOR CLAY PROCESSING LABOURER [address] [facility] [address] [place], [place] [address] Tatyana Haas, Assigned PCP 12/31/20 02/24/21 ROCK WOOL INSULATOR CLAY PROCESSING LABOURER [facility] [address] [facility] [address] [place] [address] Stephani Pina, Assigned PCP 02/25/21 ROCK WOOL INSULATOR CLAY PROCESSING LABOURER [address] [place] [address] Elsa Yeh, Registered Nurse Infectious Diseases 07/25/21 Rogelio Wilson Assigned Musculoskeletal 08/04/21 MD August Provider [address] [place], [place] [address] Luis Camara MD Podiatry 08/16/21 CALVIN Burnett [address] [facility] [place] [address] Camryn Christina Assigned Surgical 09/01/21 09/07/21 MD Lexie Provider [address] [facility] [address] [place] [address] Sintia Lange PA-C Assigned Surgical 09/08/21 [address] [facility] [address]TH [place] [address] Landon Warren MD Gastroenterology 11/21/21 MD Luis Fernando [address] [facility] [address] [place] [address] documented as of this encounter
--- OUTSIDE RECORDS SUMMARY | 2021-11-28 13:43 | XMS_ITS | Encounter Summary ---
:1980 Author Organization [place] Address [address] [facility] [place] [address] Care Team Providers Name Role Phone Clinic, [facility] Primary Care Provide r Tatyana Haas Sanju BRAILLE DUPLICATING 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 SESSIONS CLERK Unavailable [phone] Reason for Visit Reason Onset Date Comments MH/CD Inpatient 04/01/2019 Encounter Details Date Type Department Care Team Description 04/01/2019 Telephone [facility] Generic, Behavioral MH/ CD Inpatient Behavioral Health In abigail Rivera MD [address] [place] [phone] Social History Tobacco Use Types Packs/Day Years Used Date Smoking Tobacco: Every Day Cigarettes 0.3 10 Smokeless Tobacco: Never Comments: 5-8 cigarettes a day Alcohol Use Standard Drinks/Week Comments Not Currently 0 (1 standard drink = 0.6 oz pure alcoho l) sober 16 days Sex Assigned at Date Recorded Female 01/14/2020 10:57 AM PLATE CLEANER documented as of this encounter Miscellaneous Notes Telephone Encounter - Claudette Francis - 04/01/2019 5:26 PM CST S: [facility] seeking detox placement for a 38yo [...] and ready for behavioral bed placement: Yes E CLEANER documented in this encounter Plan of Treatment Upcoming Encounters Date Type Specialty Care Team Description 11/29/2021 Office Visit Wound Care Luis Camara DPM [address] [place] [address] (Wo rk) 01/21/2022 Office Visit Gastroenterology Juanis Levi [address] [place] [phone] Luis Fernando Miles MD [address] [facility] [address] [place] [address] documented as of this encounter Visit Diagnoses Not on filedocumented in this encounter Additional Health Concerns Assessment Noted Time PHQ-9 Depression Total Score: 07/08/2018 1:27 PM CD T documented as of this encounter Care Teams Director Of Strategy & Mobile Relationship Specialty Start Date End Date Clinic, [facility] PCP - General 01/20/18 06/28/[address] [place] [address] Tatyana Haas, BRAILLE DUPLICATING 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 SESSIONS CLERK Assigned PCP 08/02/18 01/29/20 [place] [facility] [address] [facility] [address] [place], [place] [address] documented as of this encounter
--- OUTSIDE RECORDS SUMMARY | 2021-11-28 13:43 | XMS_ITS | Encounter Summary ---
:1980 Author Organization [place] Address [address] [facility] [place] [address] Care Team Providers Name Role Phone Clinic, [facility] Primary Care Provide r Tatyana Haas APRN DEHYDROGENATION CONVERTER HELPER Unavailable [phone] Reason for Referral Mental Health Outpatient (Routine) - Closed Specialty Diagnoses / Procedures Referred By Contact Refer red To Contact Diagnoses Moderate major depression (H) Current every day smoker Uncomplicated opioid dependence (H) Stephani Pina APRN CNP [address] [place], [place] [address] Referral ID Status Reason Start Date Expiration Date Visits Requ ested Visits Authorized [id number] Closed 01/28/2020 01/27/2021 1 1 TRUCTION ECONOMIST Reason for Visit Reason Comments Establish Care Encounter Details Date Type Department Care Team Description 12/27[facility]2019 [facility] Moderate major depression (H) (Primary Dx); Clinic Ashly Alvarez APRN CNP Alcohol abuse, continuous; [address] Current every day smoker; [address] Uncomplicated opioid dependence (H) [place] [address] [phone] Social History Tobacco Use Types Packs/Day Years Used Date Smoking Tobacco: Every Day Cigarettes 0.3 10 Smokeless Tobacco: Never Comments: 5-8 cigarettes a day Alcohol Use Standard Drinks/Week Comments Not Currently 0 (1 standard drink = 0.6 oz pure alcoho l) sober 16 days Sex Assigned at Date Recorded Female 01/14/2020 10:57 AM CONSTRUCTION ECONOMIST COVID-19 Exposure Response Date Recorded In the last month, have you been in contact with No / Unsure 01/11/2020 8:00 PM CONSTRUCTION ECONOMIST someone who was confirmed or suspected to have Coronavirus / COVID-19? documented as of this encounter Patient Instructions Patient InstructionsYovani Stephanidelon Alvarez, FARZANA DEHYDROGENATION CONVERTER HELPER - 12/27/2019 9:40 AM CONSTRUCTION ECONOMIST Images from the original note were not [...] or use alcohol to avoid such symptoms. Mulu last reviewed this educational content on 03/20/2016 ?? [id number] [employer]. [address] [place] [address]. All rights reserved. This information is not [...] manage those feelings. ?? Community reinforcement approach (STUDENT SERVICES COORDINATOR). This therapy uses vouchers help you follow [...] encourage you to drink or use drugs.? [place] support groups. These groups are run voluntarily [...] behavioral change through participation in 12-step programs. Mulu last reviewed this educational content on 03/20/2016 ?? [phone] [employer]. [address] [place] [address], [place] [address]. All rights reserved. This information is not [...] you can. Go to a movie, ballgame, yazidi service, or social event. Talk openly with [...] can cause other physical and emotional problems. Mulu last reviewed this educational content on 01/17/2019 ?? [phone] [employer]. [address] [place] [address]. All rights reserved. This information is not intended as a substitute for professional medical care. Always follow your healthcare professional's instructions. TRUCTION ECONOMIST documented in this encounter Progress Notes Stephani [...] be resent to: Send to e-mail at: [email or web address] Will anyone else be joining your video [...] follow-ups on file. Stephani Pina APRN CNP [facility] Video-Visit Details Type of service: Video Visit Video End Time:10:08 AM Originating Location (pt. Location): Home Distant Location (provider location): [facility] Platform used for Video Visit: [employer] TRUCTION ECONOMIST documented in this encounter Plan of Treatment Upcoming Encounters Date Type Specialty Care Team Description 11/29/2021 Office Visit Wound Care Luis Camara DPM [address] [place] [address] (Wo rk) 01/21/2022 Office Visit Gastroenterology Juanis Levi [address] [place] [address] Luis Fernando Miles MD [address] [facility] [address] [place] [address] Scheduled Referrals Name Type Priority Associated Diagnoses Order S [facility] MENTAL HEALTH REFERRAL - Referral Routine [...] Total Score: 6 12/27/2019 9:38 AM CONSTRUCTION ECONOMIST documented as of this encounter Care Teams Supervisor Grower Relationship Specialty Start Date End Date Clinic, [facility] PCP - General 01/20/18 06/28/[address] [place] [address] Tatyaan Haas APRN DEHYDROGENATION CONVERTER HELPER Assigned PCP 08/02/18 01/29/20 [facility] [address] [facility] [address] [place], [place] [phone] documented as of this encounter
--- OUTSIDE RECORDS SUMMARY | 2021-11-28 13:44 | XMS_ITS | Encounter Summary ---
:1980 Author Organization [place] Address [address] [facility] [place] [address] Care Team Providers Name Role Phone [facility] Primary Care Provide r Encounter Details Date Type Department Care Team Description 05/23/2018 Travel Social History Tobacco Use Types Packs/Day Years Used Date Smoking Tobacco: Every Day Cigarettes 0.1 10 Smokeless Tobacco: Never Comments: 5 cigarettes a day Alcohol Use Standard Drinks/Week Comments Yes 0 (1 standard drink = 0.6 oz pure alcoho l) binge drinks Sex Assigned at Date Recorded Female 01/14/2020 10:57 AM PHOTO COLORER documented as of this encounter Plan of Treatment Upcoming Encounters Date Type Specialty Care Team Description 11/29/2021 Office Visit Wound Care Luis Camara DPM [address] [place], [place] [address] (Wo rk) 01/21/2022 Office Visit Gastroenterology Juanis Levi [address] [place] [address] Luis Fernando Miles MD [address] [facility] [address] [place], [place] [phone] documented as of this encounter Visit Diagnoses Not on filedocumented in this encounter Care Teams Sheet Rocker Relationship Specialty Start Date End Date Clinic, [facility] PCP - General 01/20/18 06/28/21 [facility] [employer] [place] [address] documented as of this encounter
--- OUTSIDE RECORDS SUMMARY | 2021-11-28 13:44 | XMS_ITS | Encounter Summary ---
:1980 Author Organization [place] Address [address] [place] [address] Care Team Providers Name Role Phone [facility] Primary Care Provide r Encounter [...] at Date Recorded Female 01/14/2020 10:57 AM TRAVERTINE INSTALLER documented as of this encounter Plan of Treatment Upcoming Encounters Date Type Specialty Care Team Description 11/29/2021 Office Visit Wound Care Luis Camara DPM [address] [place], [place] [phone] (Wo rk) 01/21/2022 Office Visit Gastroenterology Juanis Levi [address] [place] [address] Luis Fernando Miles MD [address] [facility] [address] [place], [place] [address] documented as of this encounter Visit Diagnoses Not on filedocumented in this encounter Care Teams Fireworks Inspector Relationship Specialty Start Date End Date Clinic, [facility] PCP - General 01/20/18 06/28/21 [facility] [place] [place] [address] documented as of this encounter
--- OUTSIDE RECORDS SUMMARY | 2021-11-28 13:44 | XMS_ITS | Encounter Summary ---
:1980 Author Organization [place] Address [address] [place] [address]. [place] [address] Care Team Providers Name Role Phone Clinic, [facility] Primary Care Provide r Reason for Referral Consultation (Routine) - Closed Specialty Diagnoses / Procedures Referred By Contact Refer red To Contact Diagnoses Joint effusion of the lower leg Marleny De Jesus MD [address] and [place], [place] [address] Surgery Center 4 [facility] Keith Camryn Sanju [phone] Phone: Fax: Referral ID Status Reason Start Date Expiration Date Visits Requ ested Visits Authorized [id number] Closed 07/20/2018 07/20/2019 1 1 Reason for Visit Reason Comments Knee Pain Complains of left knee and l eg pain. States it started hurting 5 days ago. Was seen in ED and was given tordal and xray was done. Pt states they told her it was probably tendonit is. Encounter Details Date Type Department Care Team Description 07/20/2018 [facility] Jeannine De Jesus ra, MD Joint effusion of the Emergency Department [address] [place] [address] lower leg (Primary Dx) [address] [place] [phone] [phone] (Wo rk) Social History Tobacco Use Types Packs/Day Years Used Date Smoking Tobacco: Every Day Cigarettes 0.3 10 Smokeless Tobacco: Never Comments: 5-8 cigarettes a day Alcohol Use Standard Drinks/Week Comments Not Currently 0 (1 standard drink = 0.6 oz pure alcoho l) sober 16 days Sex Assigned at Date Recorded Female 01/14/2020 10:57 AM COMPUTER GRAPHICS ILLUSTRATOR documented as of this encounter Last Filed [...] heat. If you have to wear a ktxj-mtw-gflk knee brace, you can open it to apply the ice pack, or heat, directly to the knee. Never put ice directly on the skin. Always wrap the ice in a towel or other type of cloth. ?? You may use??[id number]-ype-jhhrjzf pain medicine to control pain, unless another [...] work duties. ?? If you have a cdhp-ipw-ykvl knee brace, you can remove it to [...] Shaking chills Date Last Reviewed: 06/17/2017 ?? [id number] [employer]. [address] [place] [address], [place] [address]. All rights reserved. This information is not [...] cannot be sent through Care Everywhere.Knee Effusion (Romansh)documented in this encounter Medications at Time of [...] Singletary RN - 07/20/2018 3:32 PM CDT [facility] notified about patient getting discharge. Marleny De [...] treadmill and eliptical. [facility] She was seen and given toradol that [...] and Surgical History, and Social History inthe [employer] system. Review of Systems Musculoskeletal: Positive for [...] Joint effusion of the lower leg 07/20/2018 [facility], EMERGENCY DEPARTMENT Marleny De Jesus MD 07/20/18 1542 documented in this encounter Plan of Treatment Upcoming Encounters Date Type Specialty Care Team Description 11/29/2021 Office Visit Wound Care Luis Camara DPM [address] [place] [address] (Wo rk) 01/21/2022 Office Visit Gastroenterology Juanis Levi [address] [place] [phone] Luis Fernando Miles MD [address] [address] Scheduled Referrals Name Type Priority Associated Diagnoses [...] CHRIS COURTNEY MD Marleny De Jesus MD G US ORDERABLES documented in this encounter Visit [...] 30 mg 30 mg, Intramuscular, ONCE, On Fri07/20/18 at 1330, For 1 dose, Can cause [...] documented as of this encounter Care Teams Sexual Assault Counsellor Relationship Specialty Start Date End Date Clinic, [facility] PCP - General 01/20/18 06/28/[address] [place] [address] documented as of this encounter
--- OUTSIDE RECORDS SUMMARY | 2021-11-28 13:44 | XMS_ITS | Encounter Summary ---
:1980 Author Organization [place] Address [facility] [place] [address] Care Team Providers Name Role Phone Clinic, [facility] Primary Care Provide r Tatyana Haas Sanju FIRE WARDEN ROPE TOW OPERATOR Unavailable [phone] Reason for Visit Reason Comments Chest Pain Encounter Details Date Type Department Care Team Description 08/23/2018 Emergency [facility] Sandra Moreno intoxication without complication (H); [facility] Emergency Dep t MD Kim Chest pain, unspecified type; [address] [facility] [place] [address] [phone] (Wo rk) Social History Tobacco Use Types Packs/Day Years Used Date Smoking Tobacco: Every Day Cigarettes 0.3 10 Smokeless Tobacco: Never Comments: 5-8 cigarettes a day Alcohol Use Standard Drinks/Week Comments Not Currently 0 (1 standard drink = 0.6 oz pure alcoho l) sober 16 days Sex Assigned at Date Recorded Female 01/14/2020 10:57 AM MANAGER PAYROLL documented as of this encounter Last Filed [...] be sent through Care Everywhere. Alcohol Intoxication (Kosovan)Hypokalemia (Kosovan)Chest Pain, Uncertain Cause (Kosovan)documented in this encounter Medications at Time of [...] History: Breast surgery - abscess drained x2 Machine Pecan Picker surgery Orthopedic surgery Thoracic surgery Family History: Mother - depression, psychotic disorder, thyroid disease Father - cerebrovascular disease, [place] Brother - depression Social History: The patient [...] nerves intact. Motor- moves all 4 extremities, patient support assistant 5/5. DF and PF 5/5. Sensation- intact arms and face and legs. Coordination- ambulatory. Overall symmetrical exam HEME: no bruising or petechiae/contusions LYMPH: no lymphadenopathy Emergency Department Course ECG: ECG taken at 0136, ECG read at [address] Sandra Moreno MD Normal sinus rhythm Prolonged QT Abnormal ECG Rate 92 bpm. OH interval 160. QRS duration 102. QT/QTc 390/482. [...] (L) o/w WNL (Creatinine 0.55) Troponin (Collected 014): <0.015 HCG Qualitative (Blood): Negative Alcohol Ethyl: [...] while in the emergency department, results above. (2844) I performed an exam of the patient [...] PCP. (0450) Patient's mother has arrived to parts picker patient. (0452) Rechecked patient. (0504) Spoke [...] on Friday. No more alcohol! Scribe Disclosure: I, Kayla Nazario, am serving as a scribe at 1:39 AM on 08/23/2018 to document services personally performed by Sandra Moreno MD, based on my observations and the provider's statements to me. 08/23/2018 [facility] EMERGENCY DEPARTMENT Sandra Moreno MD 08/23/18 1815 documented in this encounter Plan of Treatment Upcoming Encounters Date Type Specialty Care Team Description 11/29/2021 Office Visit Wound Care Luis Camara DPM [address] [place], [place] [phone] (Wo rk) 01/21/2022 Office Visit Gastroenterology Juanis Levi [address] [place] [phone] Luis Fernando Miles MD [address] [address] documented as of this encounter Procedures Procedure [...] findings. Heart size is within normal limits. SHKURI REDDY MD Sandra Moreno MD IMG DIAGNOSTIC IMAGING ORDER JEFFERY (ABNORMAL) UA with Microscopic (08/23/2018 2:55 AM CDT) [facility] Method Time Signature Color Urine Yellow 08/23/2018 [facility] 3:04 AM [facility] Appearance Urine Clear 08/23/2018 [facility] 3:04 AM [facility] Glucose Urine Negative NEG^Negat 08/23/2018 [facility] [place]ula mg/dL 3:04 AM [facility] Bilirubin Urine Negative NEG^Negat 08/23/2018 [facility] paula 3:04 AM [facility] Ketones Urine Negative NEG^Negat 08/23/2018 [facility] paula mg/dL 3:04 AM [facility] Specific [place] 1.020 1.003 - 08/23/2018 [facility] Urine 1.035 3:04 AM [facility] Blood Urine Negative NEG^Negat 08/23/2018 [place] paula 3:04 AM [facility] pH Urine 6.5 5.0 - 7.0 08/23/2018 [facility] pH 3:04 AM [facility] Protein Albumin 20 (A) NEG^Negat 08/23/2018 [facility] Urine paula mg/dL 3:04 AM [facility] Urobilinogen >12.0 (H) 0.0 - 2.0 08/23/2018 [facility] mg/dL mg/dL 3:04 AM [facility] Nitrite Urine Negative NEG^Negat 08/23/2018 [facility] paula 3:04 AM [facility] Leukocyte Negative NEG^Negat 08/23/2018 [facility] Esterase Urine paula 3:04 AM [facility] Source Midstream 08/23/2018 [facility] Urine 2:55 AM [facility] WBC Urine <1 0 - 5 08/23/2018 [facility] /HPF 3:04 AM [facility] RBC Urine <1 0 - 2 08/23/2018 [facility] /HPF 3:04 AM [facility] Squamous 1 0 - 1 08/23/2018 [facility] Epithelial /HPF /HPF 3:04 AM [facility] Mucous Urine Present (A) NEG^Negat 08/23/2018 [place]ula /LPF 3:04 AM [facility] Hyaline Casts 1 0 - 2 08/23/2018 [facility] /LPF 3:04 AM [facility] Specimen (Source) Anatomical Collection Method Collection Time Re ceived Time Location / / Volume Laterality Examination of URINE SPECIMEN 08/23/2018 2:55 08/24/19 19 3:00 midstream urine OBTAINED BY CLEAN AM [facility] specimen CATCH PROCEDURE / (procedure) Unknown Sandra Moreno MD LAB - URINE ORDERABLES Performing Organization Address City/State/ZIP Code Phon e Number M [place] [address] [address] [address] [facility] [address] [phone] (ABNORMAL) Alcohol ethyl (08/23/2018 1:44 AM CDT) athologist Signature Ethanol g/dL 0.19 (H) <0.01 g/dL 08/23/2018 [place] 2:52 AM CDT [facility] Specimen Anatomical Collection Method Collection Time Receive d Time (Source) Location / / Volume Laterality 08/23/2018 1:44 AM 9 1:49 CDT AM CDT Sandra Moreno MD LAB - BLOOD ORDERABLES Performing Organization Address City/[facility]/ZIP [facility] Phon e Number M [facility] [address] [place] [address] [facility] [address] [place] [address], [place] [phone] HCG QUALitative (blood) (08/23/2018 1:44 AM CDT) [facility] gist Method Time Signature HCG Qualitative Negative NEG^Negati 08/23/2018 [place] Serum ve 2:10 AM T [facility] Comment: This test is for screening purposes. ??R esults should be interpreted along with the clinical picture. ??Confirmation te sting is available if warranted by ordering [id number], HCG Quantitative Pregna ncy. Specimen Anatomical Collection Method Collection Time Receive d Time (Source) Location / / Volume Laterality Blood specimen 08/23/2018 1:44 AM 019 1:49 (specimen) CDT AM CDT Sandra Moreno MD LAB - BLOOD ORDERABLES Performing Organization Address City/State/ZIP Code Phon e Number M [facility] [address] [place], [place] [address] [facility] [address] [place], [place] [address], [place] [phone] Troponin I (08/23/2018 1:44 AM CDT) athologist Signature Troponin I ES <0.015 0.000 - 08/23/2018 [place] 0.045 ug/L 2:13 AM [facility] Comment: The 99th percentile for upper reference [...] City/State/ZIP Code Phon e Number M [facility] [address] [place] [address] [address] [facility] [address] [phone] (ABNORMAL) Basic metabolic panel (08/23/2018 1:44 AM CDT) athologist Signature Sodium 141 133 - 144 08/23/2018 [facility] mmol/L 2:04 AM [facility] Potassium 2.7 (L) 3.4 - 5.3 08/23/2018 [facility] mmol/L 2:04 AM [facility] Chloride 105 94 - 109 08/23/2018 [facility] mmol/L 2:04 AM [facility] Carbon Dioxide 26 20 - 32 08/23/2018 [facility] mmol/L 2:08 AM [facility] Anion Gap 10 3 - 14 08/23/2018 [facility] mmol/L 2:08 AM [facility] Glucose 99 70 - 99 08/23/2018 [facility] mg/dL 2:08 AM [facility] Urea Nitrogen 6 (L) 7 - 30 08/23/2018 [facility] mg/dL 2:08 AM [facility] Creatinine 0.55 0.52 - 08/23/2018 [facility] 1.04 mg/dL 2:08 AM [facility] GFR Estimate >90 >60 08/23/2018 [facility] mL/min/{1. 2:08 AM [facility] 73_m2} HOSPITAL Comment: Non GFR Calc Starting 02/03/2018, serum creatinine ba sed estimated GFR (eGFR) will be calculated using the Chronic Kidney Dise ase Epidemiology Collaboration (CKD-EPI) equation. GFR Estimate If >90 >60 mL/min/{1.73_m2} 08/23/2018 2: 08 AM [facility] Comment: GFR Calc Starting 02/03/2018, serum creatinine ba sed estimated GFR (eGFR) will be calculated using the Chronic Kidney Dise [facility] Epidemiology Collaboration (CKD-EPI) equation. Calcium 8.5 8.5 - 10.1 mg/dL 08/23/2018 2:08 AM CDT [facility] Specimen Anatomical Collection Method Collection Time Receive d Time (Source) Location / / Volume Laterality Blood specimen 08/23/2018 1:44 AM 019 1:49 (specimen) CDT AM CDT Sandra Moreno MD LAB - BLOOD ORDERABLES Performing Organization Address City/State/ZIP Code Phon e Number M [address] [address] [facility] [address] [place], [place] [address] [facility] [phone] [address] (ABNORMAL) CBC with platelets differential (08/23/2018 1:44 AM CDT) [facility] Method Time Signature WBC 3.9 (L) 4.0 - 08/23/2018 [place] 11.0 1:52 AM [facility] 10e9/L [facility] RBC Count 3.96 3.8 - 5.2 08/23/2018 [facility] 10e12/L 1:52 AM [facility] Hemoglobin 12.8 11.7 - 08/23/2018 [facility] 15.7 g/dL 1:52 AM [facility] Hematocrit 37.3 35.0 - 08/23/2018 [facility] 47.0 % 1:52 AM [facility] MCV 94 78 - 100 08/23/2018 [facility] fl 1:52 AM [facility] MCH 32.3 26.5 - 08/23/2018 [place] 33.0 pg 1:52 AM [facility] MCHC 34.3 31.5 - 08/23/2018 [facility] 36.5 g/dL 1:52 AM [facility] RDW 12.3 10.0 - 08/23/2018 [facility] 15.0 % 1:52 AM [facility] Platelet Count 84 (L) 150 - 450 08/23/2018 [facility] 10e9/L 1:52 AM [facility] Diff Method Automated 08/23/2018 [facility] Method 1:52 AM [facility] % Neutrophils 29.6 % 08/23/2018 [facility] 1:52 AM [facility] % Lymphocytes 59.7 % 08/23/2018 [facility] 1:52 AM [facility] % Monocytes 8.2 % 08/23/2018 [facility] 1:52 AM [facility] % Eosinophils 2.0 % 08/23/2018 [facility] 1:52 AM [facility] % Basophils 0.5 % 08/23/2018 [facility] 1:52 AM [facility] % Immature 0.0 % 08/23/2018 [facility] Granulocytes 1:52 AM [facility] Nucleated RBCs 0 0 /100 08/23/2018 [facility] 1:52 AM [facility] Absolute 1.2 (L) 1.6 - 8.3 08/23/2018 [facility] Neutrophil 10e9/L 1:52 AM [facility] Absolute 2.3 0.8 - 5.3 08/23/2018 [facility] Lymphocytes 10e9/L 1:52 AM [facility] Absolute 0.3 0.0 - 1.3 08/23/2018 [facility] Monocytes 10e9/L 1:52 AM [facility] Absolute 0.1 0.0 - 0.7 08/23/2018 [facility] Eosinophils 10e9/L 1:52 AM [facility] Absolute 0.0 0.0 - 0.2 08/23/2018 [facility] Basophils 10e9/L 1:52 AM [facility] Abs Immature 0.0 0 - 0.4 08/23/2018 [facility] Granulocytes 10e9/L 1:52 AM [facility] Absolute 0.0 08/23/2018 [facility] Nucleated RBC 1:52 AM [facility] Specimen Anatomical Collection Method Collection Time Receive d Time (Source) Location / / Volume Laterality Blood specimen 08/23/2018 1:44 AM 019 1:49 (specimen) CDT AM CDT Sandra Moreno MD LAB - BLOOD ORDERABLES Performing Organization Address City/State/ZIP Code Phon e Number [facility] [address] [place], [place] [address] [facility] [address] [place], [place] [address] [facility] [phone] EKG 12 lead (08/23/2018 1:36 AM CDT) [facility] gist Method Time Signature Interpretation ECG [...] (COMPLETED) 0155 (New Bag - Provider: Willian Ga RN)0313 (Stopped - Provider: Helena Ray, RN) Intravenous, 1,000 mL, ONCE, at 1,000 mL /hr, Administer over 1 Hours, 08/23/18 at 0150, For 1 dose ketorolac (TORADOL) injection 15 mg (COMPLETED) 0154 (Given - Provider: Willian Ga, GENARO) 15 mg, Intravenous, ONCE, 08/23/18 at 0150, [...] infusion 01 50 (Canceled Entry - Provider: Ant Generic Provider - Comment: Automatically canceled at discontinue of medication order) at 125 mL/hr, Intravenous, CONTINUOUS, A dminister after the bolus., Starting 08/23/18 at 0150, Until 08/23/18 at 0708 PRN Medication Order 08/21/2018 08/22/2018 08/23/2018 potassium chloride 10 mEq in 100 mL inte rmittent infusion with 10 mg lidocaine (COMPLETED) 0313 (New Bag - Prov ider: Helena Ray RN)0423 (Stopped - Provider: Helena Ray RN) 10 mEq, Intravenous, Administer over 1 H ours, EVERY 1 HOUR PRN, Starting 08/23/18 at 0229, For 1 dose, potassium supplementation documented in this encounter Additional Health Concerns Assessment Noted Time PHQ-9 Depression Total Score: 10 07/08/2018 1:27 PM CD T documented as of this encounter Care Teams Bank Courier Relationship Specialty Start Date End Date Clinic, [facility] PCP - General 01/20/18 06/28/[address] [place] [address] Tatyana Haas APRN ROPE TOW OPERATOR Assigned PCP 08/02/18 01/29/20 [facility] [address] [facility] [address] [place], [place] [address] documented as of this encounter
--- OUTSIDE RECORDS SUMMARY | 2021-11-28 13:44 | XMS_ITS | Encounter Summary ---
:1980 Author Organization [place] Address [address] [place] [address]. [place] [address] Care Team Providers Name Role Phone Clinic, [facility] Primary Care Provide r Reason for Visit Reason Comments Musculoskeletal Problem Patient was working out 4 da ys ago, pain getting worse, patient in treatment at [facility] f or ETOH. PShe has taking tylenol & ibuprofen x 4 days with mi nimal relief. 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 HPI Stephani King is a 37 year old female with a history of anxiety, depression, chronic hepatitis C, and alcohol abuse who presents for evaluation of left knee pain. Of note, patient is in treatment at [facility] for alcohol abuse. She reports she's had pain in her left knee for the past 4 days, around the same time she began working out at the [facility] gym. Patient denies any specific injury toher [...] So Luciano MD; Location: [facility] OR ??? BOILER SERVICE TECHNICIAN SURGERY ??? ORTHOPEDIC SURGERY ??? THORACIC [...] chronicity IEl, am serving as a trained emergency medical services coordinator to document services personally performed by Donnell Shook MD, based on the provider's statements to me. Donnell Powers MD, was physically present and have reviewed and verified the accuracy of this note documented by [place]. 07/19/2018 [facility] EMERGENCY DEPARTMENT Jona Shook MD 07/19/18 1147 documented in this encounter Plan of Treatment Upcoming Encounters Date Type Specialty Care Team Description 11/29/2021 Office Visit Wound Care Luis Camara DPM [address] [place] [address] (Wo rk) 01/21/2022 Office Visit Gastroenterology Juanis Levi [address] [place] [phone] Luis Fernando Miles MD [address] [address] documented as of this encounter Procedures Procedure [...] documented as of this encounter Care Teams Miller Kiln Dried Salt Relationship Specialty Start Date End Date [facility], [facility] PCP - General 01/20/18 06/28/21 [facility] [place] [address] documented as of this encounter
--- OUTSIDE RECORDS SUMMARY | 2021-11-28 13:44 | XMS_ITS | Encounter Summary ---
:1980 Author Organization [place] Address [address] [facility] 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 [facility] [address] [place] [address] documented as of this encounter Visit Diagnoses Not on filedocumented in this encounter Additional Health Concerns Assessment Noted Time PHQ-9 Depression Total Score: 10 07/08/2018 1:27 PM CD T documented as of this encounter Care Teams Health Therapist Relationship Specialty Start Date End Date Clinic, [facility] PCP - General 01/20/18 06/28/[address] [place] [address] documented as of this encounter
--- OUTSIDE RECORDS SUMMARY | 2021-11-28 13:44 | XMS_ITS | Encounter Summary ---
:1980 Author Organization [place] Address [address] [place] [address] Care Team Providers Name Role Phone Clinic, [facility] Primary Care Provide r Tatyana Haas RESIDENTIAL SALES EXECUTIVE EMISSION SPECIALIST Unavailable [phone] Stephani Pina RESIDENTIAL SALES EXECUTIVE EMISSION SPECIALIST Unavailable [phone] Reason for Visit Reason Onset Date Comments [facility] 07/04/2018 Encounter Details Date Type Department Care Team Description 07/04/2018 Telephone [facility] Generic, Behavioral [facility] abigail Rivera MD [address] [place] [phone] Social History Tobacco Use Types Packs/Day Years Used Date Smoking Tobacco: Every Day Cigarettes 0.1 10 Smokeless Tobacco: Never Comments: 5 cigarettes a day Alcohol Use Standard Drinks/Week Comments Yes 0 (1 standard drink = 0.6 oz pure alcoho l) binge drinks Sex Assigned at Date Recorded Female 01/14/2020 10:57 AM CHASSIS WIRER COVID-19 Exposure Response Date Recorded In the last month, have you been in contact with No / Unsure 07/12/2020 11:10 AM CDT someone who was confirmed or suspected to have Coronavirus / COVID-19? documented as of this encounter Miscellaneous Notes Telephone Encounter - Shelbi Frank - 07/08/2018 4:05 PM CDT [employer] auth requested faxed. fb Telephone Encounter - Scout Jarvis LADC - 07/08/2018 1:02 PM CDT This patient was admitted to the [facility] program on 07/08/2018. Please see the SBAR in the telephone note below completed by the interstate planner for details on this patient. Telephone Encounter - Scout Jarvis LADC - 07/08/2018 1:00 PM CDT Attn: Central Intake ?? This patient was admitted to the LP program on 07/08/2018. Please send the [facility] referral paperwork to [facility] to activate the authorization for the LP program. Telephone Encounter - Marlena Trujillo LADC - 07/06/2018 1:32 PM CDT SBAR Name: Stephani King Date of : 1980 Age: [age] year old Gender: female Referral Source: Self Referral GIOVANNA: N/A Insurance: [facility]: [facility] Precipitating Event: Treatment due to own [...] child protection involvement, Unemployed and Stable finances [place] Suicide Risk Status: Past month: 0. - [...] Info as needed: Pt has in home ARMRACHEL, Therapist, , and CD Counselor Telephone Encounter - Shelbi Frank - 07/06/2018 10:54 AM CDT 07-06-18 Added to L+ Priority List. fb Please notify Intake upon L+ admit so Intake can get [facility] auth. fb Telephone Encounter - Mary Ellen Larsen LICSW - 07/06/2018 10:11 AM CDT LP SCREEN TELEPHONE NOTE Stephani King paperwork was reviewed by JANETT York and the patient was deemed ELIGIBLE for the LP program. Medical: The patient is medically stable and did not appear to need a medical screening with the LP RN at this time. Insurance: [facility] MA/PMAP - The admitting counselor NEEDS to notify [facility] of the patient's admission to treatment on the day/evening of the admission with a routed telephone note. After being informed of the admission date for treatment [facility] will need to fill out the [facility] referral forms with the patient's start date and then fax the [facility] referral forms to [facility] to activate the authorization for treatment. This will be a: 3A DIRECT TRANSFER, F140 will complete the VA, ISP and the LP UPDATE. IV use or : This patient is not or an IV drug user. Business office: The patient has [employer] MA/PMAP and would NOT need to consult [...] number for the patient is: [phone] @ [phone] Mary Ellen Franklin LICSW 07/06/2018 Telephone Encounter - Abrahan Waldrop - 07/04/2018 6:57 PM CDT S: Josephine ED MD called at [address] [...] 2mg. Pt denies SI. A: Voluntary. R: call center dispatcher paged at 1918 to review for placement on 3A/[place]. call center dispatcher approved admission at 1923.Unit notified at 2000. ED notified at 2007. documented in this encounter Plan of Treatment Upcoming Encounters Date Type Specialty Care Team Description 11/29/2021 Office Visit Wound Care Luis Camara DPM [address] [place], [place] [phone] (Wo rk) 01/21/2022 Office Visit Gastroenterology Juanis Levi [address] [place] [phone] Luis Fernando Miles MD [address] [facility] [address] [place], [place] [phone] documented as of this encounter Visit Diagnoses Diagnosis Alcohol abuse, continuous - Primary Nondependent alcohol abuse, continuous d rinking behavior documented in this encounter Care Teams Er Registrar Relationship Specialty Start Date End Date Clinic, [facility] PCP - General 01/20/18 06/28/[address] [place], [place] [address] [address] Tatyana Haas APRN EMISSION SPECIALIST Assigned PCP 08/02/18 01/29/20 [facility] [address] [facility] [address] [place] [address] Stephani Pina APRN EMISSION SPECIALIST Assigned PCP 01/30/20 12/30/[address] [place] [address] [address] [place], [place] [address] documented as of this encounter
--- OUTSIDE RECORDS SUMMARY | 2021-11-28 13:44 | XMS_ITS | Encounter Summary ---
:1980 Author Organization [place] Address [address] [facility] 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 documented as of this encounter Plan of Treatment Upcoming Encounters Date Type Specialty Care Team Description 11/29/2021 Office Visit Wound Care Luis Camara DPM [address] [place], [place] [phone] (Wo rk) 01/21/2022 Office Visit Gastroenterology Juanis Levi [address] [place] [address] Luis Fernando Miles MD [address] [facility] [place], [place] [phone] documented as of this encounter Visit Diagnoses Not on filedocumented in this encounter Care Teams Fabricator Industrial Furnace Relationship Specialty Start Date End Date Clinic, [facility] PCP - General 01/20/18 06/28/21 [facility] [place] [address] documented as of this encounter
--- OUTSIDE RECORDS SUMMARY | 2021-11-28 13:44 | XMS_ITS | Encounter Summary ---
:1980 Author Organization [place] Address [facility] [place] [address] Care Team Providers Name Role Phone Clinic, [facility] Primary Care Provide r Reason for Visit Reason Comments Alcohol Intoxication Encounter Details Date Type Department Care Team Description 05/23/2018 Emergency [facility] Silke Muñiz Alcoholic intoxication without complication (H); [facility] Emergency Dep t MD Margot Elevated AST (SGOT); [address] Elevated ALT measurement [place], [place] [address] [phone] Social History Tobacco Use Types Packs/Day Years Used Date Smoking Tobacco: Every Day Cigarettes 0.1 10 Smokeless Tobacco: Never Comments: 5 cigarettes a day Alcohol Use Standard Drinks/Week Comments Yes 0 (1 standard drink = 0.6 oz pure alcoho l) binge drinks Sex Assigned at Date Recorded Female 01/14/2020 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 If you answer yes to any of [...] help, contact: Your caregiver. Alcoholics Anonymous (AA). [facility] Intergroup: [phone] [facility] Central Office: [phone] A drug or alcohol rehabilitation program. You can get information on alcohol resources and groups by calling the number 211 or on any phone. Seek medical care [...] treatment Past Surgical History: Breast abscess drained General Manager In Training surgery Thoracic surgery Orthopedic surgery Family History: [...] provider's statements to me. Areli Morejon 05/23/2018 [facility] EMERGENCY DEPARTMENT Silke Muñiz MD 05/23/18 1830 documented in this encounter Plan of Treatment Upcoming Encounters Date Type Specialty Care Team Description 11/29/2021 Office Visit Wound Care Luis Camara DPM [address] [place] [address] (Wo rk) 01/21/2022 Office Visit Gastroenterology Juanis Levi [address] [place] [address] Luis Fernando Miles MD [address] [id number] documented as of this encounter Procedures Procedure [...] UA with Microscopic (05/23/2018 5:11 PM CDT) [facility] Method Time Signature Color Urine Light Yellow 05/23/2018 [facility] 5:22 PM [facility] Appearance Urine Clear 05/23/2018 [facility] 5:22 PM [facility] Glucose Urine Negative NEG^Negat 05/23/2018 [facility] paula mg/dL 5:22 PM [facility] Bilirubin Urine Negative NEG^Negat 05/23/2018 [facility] paula 5:22 PM [facility] Ketones Urine Negative NEG^Negat 05/23/2018 [facility] paula mg/dL 5:22 PM [facility] Specific [place] 1.009 1.003 - 05/23/2018 [facility] Urine 1.035 5:22 PM [facility] Blood Urine Negative NEG^Negat 05/23/2018 [facility] paula 5:22 PM [facility] pH Urine 6.0 5.0 - 7.0 05/23/2018 [facility] pH 5:22 PM [facility] Protein Albumin Negative NEG^Negat 05/23/2018 [facility] Urine paula mg/dL 5:22 PM [facility] Urobilinogen Normal 0.0 - 2.0 05/23/2018 [facility] mg/dL mg/dL 5:22 PM [facility] Nitrite Urine Negative NEG^Negat 05/23/2018 [facility] paula 5:22 PM [facility] Leukocyte Negative NEG^Negat 05/23/2018 [facility] Esterase Urine paula 5:22 PM [facility] Source Midstream 05/23/2018 [facility] Urine 5:11 PM [facility] WBC Urine <1 0 - 5 05/23/2018 [facility] /HPF 5:22 PM [facility] RBC Urine <1 0 - 2 05/23/2018 [facility] /HPF 5:22 PM [facility] Bacteria Urine Few (A) NEG^Negat 05/23/2018 [place] paula /HPF 5:22 PM [facility] Squamous 1 0 - 1 05/23/2018 [place] Epithelial /HPF /HPF 5:22 PM [facility] Mucous Urine Present (A) NEG^Negat 05/23/2018 [place] paula /LPF 5:22 PM [facility] Specimen (Source) Anatomical Collection Method Collection Time Re ceived Time Location / / Volume Laterality Examination of 05/23/2018 5:11 05/23/2018 5:18 midstream urine PM CDT PM CDT specimen (procedure) Silke Muñiz MD LAB - URINE ORDERABLES Performing Organization Address City/[facility]/ZIP [facility] Phon e Number [facility] [address] [address] [facility] [address] [address], [facility] [phone] Lipase (05/23/2018 3:34 PM CDT) athologist Signature Lipase 172 73 - 393 05/23/2018 [facility] U/L 4:25 PM [facility] Specimen Anatomical Collection Method Collection Time Receive d Time (Source) Location / / Volume Laterality 05/23/2018 3:34 PM 9 3:39 CDT PM CDT Sandra Moreno MD LAB - BLOOD ORDERABLES Performing Organization Address City/[facility]/ZIP [facility] Phon e Number [facility] [address] [address] [facility] [address] [address], [facility] [phone] (ABNORMAL) Comprehensive metabolic panel (05/23/2018 3:34 PM CDT) P athologist Signature Sodium 139 133 - 144 05/23/2018 [place] mmol/L 3:51 PM [facility] Potassium 3.5 3.4 - 5.3 05/23/2018 [place] mmol/L 3:51 PM [facility] Chloride 106 94 - 109 05/23/2018 [place] mmol/L 3:51 PM [facility] Carbon Dioxide 27 20 - 32 05/23/2018 [facility] mmol/L 3:56 PM [facility] Anion Gap 6 3 - 14 05/23/2018 [facility] mmol/L 3:56 PM [facility] Glucose 106 (H) 70 - 99 05/23/2018 [facility] mg/dL 3:56 PM [facility] Urea Nitrogen 7 7 - 30 05/23/2018 [facility] mg/dL 3:56 PM [facility] Creatinine 0.64 0.52 - 05/23/2018 [facility] 1.04 mg/dL 3:56 PM [facility] GFR Estimate >90 >60 05/23/2018 [place] mL/min/{1. 3:56 PM [facility] 73_m2} HOSPITAL Comment: Non GFR Calc Starting 02/03/2018, serum creatinine ba sed estimated GFR (eGFR) will be calculated using the Chronic Kidney Dise [facility] Epidemiology Collaboration (CKD-EPI) equation. GFR Estimate If >90 >60 mL/min/{1.73_m2} 05/23/2018 3: 56 PM [facility] Comment: GFR Calc Starting 02/03/2018, serum creatinine ba sed estimated GFR (eGFR) will be calculated using the Chronic Kidney Dise [facility] Epidemiology Collaboration (CKD-EPI) equation. Calcium 8.6 8.5 - 10.1 05/23/2018 3:56 PM [facility] mg/dL [facility] Bilirubin Total 0.7 0.2 - 1.3 mg/dL 05/23/2018 3:59 PM [facility] Albumin 3.6 3.4 - 5.0 g/dL 05/23/2018 3:59 PM [facility] Protein Total 7.9 6.8 - 8.8 g/dL 05/23/2018 3:59 PM [facility] Alkaline Phosphatase 126 40 - 150 U/L 05/23/2018 3:59 PM [facility] ALT 164 (H) 0 - 50 U/L 05/23/2018 3:59 PM [facility] AST 251 (H) 0 - 45 U/L 05/23/2018 3:59 PM [facility] Specimen Anatomical Collection Method Collection Time Receive d Time (Source) Location / / Volume Laterality Blood specimen 05/23/2018 3:34 PM 2 019 3:39 (specimen) CDT PM CDT Silke Muñiz MD LAB - BLOOD ORDERABLES Performing Organization Address City/State/ZIP Code Phon e Number [facility] [address] [place], [place] [address] [facility] [address] [phone] (ABNORMAL) CBC with platelets differential (05/23/2018 3:34 PM CDT) [facility] Method Time Signature WBC 3.3 (L) 4.0 - 05/23/2018 [facility] 11.0 3:42 PM [facility] 10e9/L [facility] RBC Count 4.13 3.8 - 5.2 05/23/2018 [facility] 10e12/L 3:42 PM [facility] Hemoglobin 13.5 11.7 - 05/23/2018 [facility] 15.7 g/dL 3:42 PM [facility] Hematocrit 39.9 35.0 - 05/23/2018 [facility] 47.0 % 3:42 PM [facility] MCV 97 78 - 100 05/23/2018 [facility] fl 3:42 PM [facility] MCH 32.7 26.5 - 05/23/2018 [facility] 33.0 pg 3:42 PM [facility] MCHC 33.8 31.5 - 05/23/2018 [facility] 36.5 g/dL 3:42 PM [facility] RDW 13.2 10.0 - 05/23/2018 [facility] 15.0 % 3:42 PM [facility] Platelet Count 150 150 - 450 05/23/2018 [facility] 10e9/L 3:42 PM [facility] Diff Method Automated 05/23/2018 [facility] Method 3:42 PM [facility] % Neutrophils 41.0 % 05/23/2018 [facility] 3:42 PM [facility] % Lymphocytes 43.6 % 05/23/2018 [facility] 3:42 PM [facility] % Monocytes 9.7 % 05/23/2018 [facility] 3:42 PM [facility] % Eosinophils 4.8 % 05/23/2018 [facility] 3:42 PM [facility] % Basophils 0.6 % 05/23/2018 [facility] 3:42 PM [facility] % Immature 0.3 % 05/23/2018 [place] Granulocytes 3:42 PM [facility] Nucleated RBCs 0 0 /100 05/23/2018 [facility] 3:42 PM [facility] Absolute 1.4 (L) 1.6 - 8.3 05/23/2018 [place] Neutrophil 10e9/L 3:42 PM [facility] Absolute 1.4 0.8 - 5.3 05/23/2018 [place] Lymphocytes 10e9/L 3:42 PM [facility] Absolute 0.3 0.0 - 1.3 05/23/2018 [place] Monocytes 10e9/L 3:42 PM [facility] Absolute 0.2 0.0 - 0.7 05/23/2018 [place] Eosinophils 10e9/L 3:42 PM [facility] Absolute 0.0 0.0 - 0.2 05/23/2018 [place] Basophils 10e9/L 3:42 PM [facility] Abs Immature 0.0 0 - 0.4 05/23/2018 [place] Granulocytes 10e9/L 3:42 PM [facility] Absolute 0.0 05/23/2018 [place] Nucleated RBC 3:42 PM [facility] Specimen Anatomical Collection Method Collection Time Receive d Time (Source) Location / / Volume Laterality Blood specimen 05/23/2018 3:34 PM 019 3:39 (specimen) CDT PM CDT Silke Muñiz MD LAB - BLOOD ORDERABLES Performing Organization Address City/State/ZIP Code Phon e Number [facility] [address] [address] [facility] [address] [phone] (ABNORMAL) Alcohol ethyl (05/23/2018 3:34 PM CDT) P athologist Signature Ethanol g/dL 0.17 (H) <0.01 g/dL 05/23/2018 [place] 3:59 PM CDT [facility] Specimen Anatomical Collection Method Collection Time Receive d Time (Source) Location / / Volume Laterality Blood specimen 05/23/2018 3:34 PM 019 3:39 (specimen) CDT PM CDT Silke Muñiz MD LAB - BLOOD ORDERABLES Performing Organization Address City/State/ZIP Code Phon e Number [address] [place] [address] [address] [place], [place] [address] [facility] [address] [place], [place] [address] [facility] [phone] documented in this encounter Visit Diagnoses Diagnosis [...] 4 mg 1721 (Given - Provider: Leydi Steven RN) 4 mg, Intravenous, EVERY 30 MIN PRN, esperanza sea, vomiting, Administer over 2-5 Minutes, Starting 05/23/18 at 1716, For 3 doses, May repeat in 30 minutes as needed, up to 3 doses. Irritant. For ordered IV doses 0.1-4 mg, give IV Push undiluted over 2-5 minutes. documented in this encounter Care Teams Vegetable Trimmer Relationship Specialty Start Date End Date Clinic, [facility] PCP - General 01/20/18 06/28/[address] [place] [address] documented as of this encounter
--- OUTSIDE RECORDS SUMMARY | 2021-11-28 13:44 | XMS_ITS | Encounter Summary ---
:1980 Author Organization [place] Address [address] [facility] 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 ENGINEER documented as of this encounter Plan of Treatment Upcoming Encounters Date Type Specialty Care Team Description 11/29/2021 Office Visit Wound Care Luis Camara DPM [address] [place], [place] [phone] (Wo rk) 01/21/2022 Office Visit Gastroenterology Juanis Levi [address] [place] [address] Luis Fernando Miles MD [address] [facility] [phone] documented as of this encounter Visit Diagnoses Not on filedocumented in this encounter Additional Health Concerns Assessment Noted Time PHQ-9 Depression Total Score: 10 07/08/2018 1:27 PM CD T documented as of this encounter Care Teams Director Of Plant Operations Relationship Specialty Start Date End Date Clinic, [facility] PCP - General 01/20/18 06/28/[address] [place] [phone] documented as of this encounter
--- OUTSIDE RECORDS SUMMARY | 2021-11-28 13:44 | XMS_ITS | Encounter Summary ---
:1980 Author Organization [place] Address Formerly [facility] [place] [address] Care Team Providers Name Role Phone Clinic, [facility] Primary Care Provide r Reason for Visit Reason Comments Alcohol Problem Vomiting Encounter Details Date Type Department Care Team Description 02/24/2018 Emergency [facility] Celestino Knox A lcohol withdrawal syndrome with complication (H); [facility] Emergency Dep t Non-intractable vomiting with nausea, un specified vomiting type [address] [facility] [place], [place] [address] [facility] [phone] [place], [place] [address] (Wo rk) Social History Tobacco Use Types Packs/Day Years Used Date Smoking Tobacco: Every Day Cigarettes 0.1 10 Smokeless Tobacco: Never Comments: 5 cigarettes a day Alcohol Use Standard Drinks/Week Comments Yes 0 (1 standard drink = 0.6 oz pure alcoho l) binge drinks Sex Assigned at Date Recorded Female 01/14/2020 10:57 AM [facility] documented as of this encounter Last Filed Vital Signs Vital Sign Reading Time Taken Comments Blood Pressure 130/81 02/24/2018 5:30 PM [facility] Pulse 86 02/24/2018 5:30 PM [facility] Temperature 36.6 ??C (97.8 ??F) 02/24/2018 1:15 PM [facility] Respiratory Rate 14 02/24/2018 1:15 PM [facility] Oxygen Saturation 95% 02/24/2018 5:30 PM [facility] Inhaled Oxygen Concentration - - Weight - - Height - - Body Mass Index - - documented in this encounter Discharge Instructions Discharge InstructionsCelestino Knox MD - 02/24/2018 4:37 PM [facility] Do not take the Librium while breast-feeding. [...] if there is anything that worries you. [facility] AttachmentsThe following attachments cannot be sent through Care Everywhere. ALCOHOL WITHDRAWAL (SWEDISH)documented in this encounter Medications at Time of [...] 2 days. Also reports feeling some palpitations. 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 NC interval 176. QRS duration 96. QT/QTc 392/479. [...] Qty: 10 tablet, Refills: 0 Scribe Disclosure: I, Max Miles, am serving as a scribe at 3:00 PM on 02/24/2018 to document services personally performed by Celestino Knox MD, based on my observations and the provider's statements to me. [facility] EMERGENCY DEPARTMENT Celestino Knox MD 02/24/18 1730 [facility] documented in this encounter Plan of Treatment Upcoming Encounters Date Type Specialty Care Team Description 11/29/2021 Office Visit Wound Care Luis Camara DPM [address] [place] [address] (Wo rk) 01/21/2022 Office Visit Gastroenterology Juanis Levi [address] [place] [address] Luis Fernando Miles MD [address] [facility] [address] [place] [address] documented as of this encounter Procedures Procedure Name Priority Date/Time Associated Comments Diagnosis BLOOD GAS VENOUS WITH STAT 02/24/2018 3:59 PM Results for this OXYHEMOGLOBIN [facility] procedure are in the results section. HCG QUALITATIVE Routine 02/24/2018 3:21 PM Result s for this [facility] procedure are i n the results section. INR STAT 02/24/2018 3:20 PM Results f or this [facility] procedure are i n the results section. MAGNESIUM STAT 02/24/2018 3:20 PM Results f or this [facility] procedure are i n the results section. KETONE STAT 02/24/2018 3:20 PM Results f or this BETA-HYDROXYBUTYRATE [facility] procedu re are in QUANTITATIVE, RAPID the resu lts section. COMPREHENSIVE STAT 02/24/2018 3:20 PM Results for this METABOLIC PANEL [facility] procedure ar e in the results section. ETHYL ALCOHOL LEVEL STAT 02/24/2018 3:20 PM Re sults for this [facility] procedure are i n the results section. CBC WITH PLATELETS STAT 02/24/2018 3:20 PM Res ults for this [facility] procedure are i n the results section. EKG 12-LEAD, TRACING STAT 02/24/2018 1:32 PM R esults for this ONLY [facility] procedure are i n the results section. documented in this encounter Results (ABNORMAL) Blood gas venous and oxyhgb (02/24/2018 3:59 PM [facility]) [facility] Method Time Signature Ph Venous 7.43 7.32 - 02/24/2018 [facility] 7.43 pH 4:11 PM [facility] PCO2 Venous 40 40 - 50 02/24/2018 [facility] mm Hg 4:11 PM [facility] PO2 Venous 52 (H) 25 - 47 02/24/2018 [facility] mm Hg 4:11 PM [facility] Bicarbonate 26 21 - 28 02/24/2018 [facility] Venous mmol/L 4:11 PM [facility] FIO2 Room air 02/24/2018 [facility] 3:59 PM [facility] Oxyhemoglobin 80 % 02/24/2018 [facility] Venous 4:11 PM [facility] Base Excess 1.9 mmol/L 02/24/2018 [facility] Venous 4:11 PM [facility] Comment: Reference range: -7.7 to 1.9 Specimen Anatomical Collection Method Collection Time Receive d Time (Source) Location / / Volume Laterality 02/24/2018 3:59 PM 9 4:00 [facility] PM [facility] Celestino Knox MD LAB - BLOOD ORDERABLES Performing Organization Address City/State/ZIP Code Phon e Number M [facility] [address] [place], [place] [address] [facility] [address] [place], [place] [address], [facility] [phone] HCG qualitative (02/24/2018 3:21 PM [facility]) Patholo gist Method Time Signature HCG Qualitative Negative NEG^Negati 02/24/2018 [place] Serum ve 4:02 PM [facility] Comment: This test is for screening purposes. ??R esults should be interpreted along with the clinical picture. ??Confirmation te sting is available if warranted by ordering [id number], HCG Quantitative Pregna ncy. Specimen Anatomical Collection Method Collection Time Receive d Time (Source) Location / / Volume Laterality Blood specimen 02/24/2018 3:21 PM 019 3:28 (specimen) [facility] PM [facility] Celestino Knox MD LAB - BLOOD ORDERABLES Performing Organization Address City/[facility]/ZIP Code Phon e Number [facility] [address] [place], [place] [address] [facility] [address] [place], [place] [address], [facility] [phone] Ketone Beta-Hydroxybutyrate Quantitative (02/24/2018 3:20 PM [facility]) P athologist Signature Ketone 0.1 0.0 - 0.6 02/24/2018 [place] Quantitative mmol/L 3:37 PM [facility] Specimen Anatomical Collection Method Collection Time Receive d Time (Source) Location / / Volume Laterality Blood specimen 02/24/2018 3:20 PM 019 3:21 (specimen) [facility] PM [facility] Celestino Knox MD LAB - BLOOD ORDERABLES Performing Organization Address City/State/ZIP Code Phon e Number M [facility] [address] [place], [place] [address] [facility] [address] [place], [place] [address], [facility] [phone] Magnesium (02/24/2018 3:20 PM [facility]) athologist Signature Magnesium 1.8 1.6 - 2.3 02/24/[address] [facility] mg/dL 3:52 PM [facility] Specimen Anatomical Collection Method Collection Time Receive d Time (Source) Location / / Volume Laterality Blood specimen 02/24/2018 3:20 PM 019 3:21 (specimen) [facility] PM [facility] Celestino Knox MD LAB - BLOOD ORDERABLES Performing Organization Address [facility]/ZIP [facility] Phon e Number [facility] [address] [place], [place] [address] [place] [address] [address] [place], [place] [address], [facility] [phone] (ABNORMAL) Alcohol level blood (02/24/2018 3:20 PM [facility]) athologist Signature Ethanol g/dL 0.06 (H) <0.01 g/dL 02/24/2018 [place] 3:52 PM [facility] Specimen Anatomical Collection Method Collection Time Receive d Time (Source) Location / / Volume Laterality Blood specimen 02/24/2018 3:20 PM 019 3:21 (specimen) [facility] PM [facility] Celestino Knox MD LAB - BLOOD ORDERABLES Performing Organization Address City/[facility]/ZIP Code Phon e Number [facility] [address] [place], [place] [address] [facility] [address] [place], [place] [address], [facility] [phone] INR (02/24/2018 3:20 PM [facility]) athologist Signature INR 1.00 0.86 - 1.14 02/24/[address] [facility] 3:46 PM [facility] Specimen Anatomical Collection Method Collection Time Receive d Time (Source) Location / / Volume Laterality Blood specimen 02/24/2018 3:20 PM 019 3:21 (specimen) [facility] PM [facility] Celestino Knox MD LAB - BLOOD ORDERABLES Performing Organization Address City/State/ZIP Code Phon e Number M [facility] [address] [place], [place] [address] [facility] [address] [place], [place] [address], [facility] [phone] (ABNORMAL) Comprehensive metabolic panel (02/24/2018 3:20 PM [facility]) athologist Signature Sodium 139 133 - 144 02/24/2018 [place] mmol/L 3:41 PM [facility] Potassium 3.3 (L) 3.4 - 5.3 02/24/2018 [place] mmol/L 3:41 PM [facility] Chloride 103 94 - 109 02/24/2018 [place] mmol/L 3:41 PM [facility] Carbon Dioxide 27 20 - 32 02/24/2018 [place] mmol/L 3:51 PM [facility] Anion Gap 9 3 - 14 02/24/2018 [place] mmol/L 3:51 PM [facility] Glucose 114 (H) 70 - 99 02/24/2018 [place] mg/dL 3:51 PM [facility] Urea Nitrogen 6 (L) 7 - 30 02/24/2018 [place] mg/dL 3:51 PM [facility] Creatinine 0.63 0.52 - 02/24/2018 [place] 1.04 mg/dL 3:51 PM [facility] GFR Estimate >90 >60 02/24/2018 [place] mL/min/{1. 3:51 PM [facility] 73_m2} HOSPITAL Comment: Non GFR Calc Starting 02/03/2018, serum creatinine ba sed estimated GFR (eGFR) will be calculated using the Chronic Kidney Dise [facility] Epidemiology Collaboration (CKD-EPI) equation. GFR Estimate If >90 >60 mL/min/{1.73_m2} 02/24/2018 3: 51 PM [facility] Comment: GFR Calc Starting 02/03/2018, serum creatinine ba sed estimated GFR (eGFR) will be calculated using the Chronic Kidney Dise [facility] Epidemiology Collaboration (CKD-EPI) equation. Calcium 8.4 (L) 8.5 - 10.1 02/24/2018 3:51 PM [facility] mg/dL [facility] Bilirubin Total 0.8 0.2 - 1.3 mg/dL 02/24/2018 3:52 PM [facility] Albumin 3.6 3.4 - 5.0 g/dL 02/24/2018 3:52 PM [facility] Protein Total 7.8 6.8 - 8.8 g/dL 02/24/2018 3:52 PM [facility] Alkaline Phosphatase 129 40 - 150 U/L 02/24/2018 3:52 PM [facility] ALT 241 (H) 0 - 50 U/L 02/24/2018 3:52 PM [facility] AST 326 (H) 0 - 45 U/L 02/24/2018 3:52 PM [facility] Specimen Anatomical Collection Method Collection Time Receive d Time (Source) Location / / Volume Laterality Blood specimen 02/24/2018 3:20 PM 019 3:21 (specimen) [facility] PM [facility] Celestino Knox MD LAB - BLOOD ORDERABLES Performing Organization Address City/State/ZIP Code Phon e Number M [facility] [address] [place] [address] [facility] [address] [phone] (ABNORMAL) CBC (platelets, no diff) (02/24/2018 3:20 PM [facility]) athologist Signature WBC 3.9 (L) 4.0 - 11.0 02/24/2018 [facility] 10e9/L 3:33 PM [facility] RBC Count 4.24 3.8 - 5.2 02/24/2018 [facility] 10e12/L 3:33 PM [facility] Hemoglobin 13.9 11.7 - 02/24/2018 [facility] 15.7 g/dL 3:33 PM [facility] Hematocrit 40.9 35.0 - 02/24/2018 [facility] 47.0 % 3:33 PM [facility] MCV 97 78 - 100 02/24/2018 [facility] fl 3:33 PM [facility] MCH 32.8 26.5 - 02/24/2018 [facility] 33.0 pg 3:33 PM [facility] MCHC 34.0 31.5 - 02/24/2018 [facility] 36.5 g/dL 3:33 PM [facility] RDW 11.8 10.0 - 02/24/2018 [facility] 15.0 % 3:33 PM [facility] Platelet Count 135 (L) 150 - 450 02/24/2018 [facility] 10e9/L 3:33 PM [facility] Specimen Anatomical Collection Method Collection Time Receive d Time (Source) Location / / Volume Laterality Blood specimen 02/24/2018 3:20 PM 019 3:21 (specimen) [facility] PM [facility] Celestino Knox MD LAB - BLOOD ORDERABLES Performing Organization Address City/State/ZIP Code Phon e Number [place] [address] [phone] EKG 12 lead (02/24/2018 1:32 PM [facility]) [facility] gist Method Time Signature Interpretation ECG Click View RADIOLOGY Image link RESULTS to view waveform and result Specimen (Source) Anatomical Collection Method Collection Time Re ceived Time Location / / Volume Laterality 02/24/2018 1:32 PM [facility] Christopher Carrion MD ECG ORDERABLES Performing Organization Address City/State/ZIP [facility] Phon e Number RADIOLOGY RESULTS documented in this encounter Visit Diagnoses Diagnosis Alcohol withdrawal syndrome with complic ation (H) Non-intractable vomiting with nausea, un specified vomiting type documented in this encounter Administered Medications Inactive Administered Medications - up to 3 most recent administrations Medication Order MAR Action Action Date Dose Rate Site 0.9% sodium chloride BOLUS New Bag 02/24/2018 3:27 PM [facility] 1,000 mLs 1000 mL/hr Intravenous, 1,000 mL, ONCE, at 1,000 mL/hr, Administer over 1 Hours, On Fri02/24/18 at 1506, For 1 dose diazepam (VALIUM) injection 5 mg Given 02/24/2018 3:28 PM [facility] 5 mg 5 mg, Intravenous, Administer over 1-4 Minutes, ONCE, On Fri02/24/18 at 1506, For 1 dose, Vesicant. For ordered doses up to 20 mg, give IV Push undiluted. Administer each 5mg over 1 minute. See IV push link for additional instructions. ondansetron (ZOFRAN) injection 8 mg Given 02/24/2018 3:28 PM [facility] 8 mg 8 mg, Intravenous, ONCE, Administer over 2-5 Minutes, On 02/24/18 at 1506, For 1 dose, Irritant. For ordered IV doses 0.1-4 mg, give IV Push undiluted over 2-5 minutes. potassium chloride ER (K-DUR/KLOR-CON M) CR Given 02/24/2018 4:06 PM [facility] 40 mEq tablet 40 mEq 40 mEq, Oral, ONCE, On Fri02/24/18 at 1550, For 1 dose, DO NOT CRUSH documented in this encounter Active and Recently Administered Medications Times are shown in [facility]. Scheduled Medication Order 02/22/2018 02/23/2018 02/24/2018 0.9% sodium chloride BOLUS (COMPLETED) 1527 (New Bag - Provider: Tarsha Lange RN)1651 (Stopped - Provider: Tarsha Lange RN) Intravenous, 1,000 mL, ONCE, at 1,000 mL /hr, Administer over 1 Hours, On Tu02/24/18 at 1506, For 1 dose diazepam (VALIUM) injection 5 mg (COMPLETED) 1528 (Given - Provider: Tarsah Lange RN) 5 mg, Intravenous, Administer over [...] mEq (COMPL ETED) 1606 (Given - Provider: Tarsha Bienfang, RN) 40 mEq, Oral, ONCE, 02/24/18 at 1550, For 1 dose, DO NOT CRUSH documented in this encounter Care Teams Court Commissioner Relationship Specialty Start Date End Date Clinic, [facility] PCP - General 01/20/18 06/28/[address] [place] [address] documented as of this encounter
--- OUTSIDE RECORDS SUMMARY | 2021-11-28 13:44 | XMS_ITS | Encounter Summary ---
:1980 Author Organization [place] Address [address] [facility] 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 States that she does not currently have a PCP. Will forward chart to medical instrument technician for review. Constipation Improvement with constipation with [...] Trino Luciano MD; Location: [facility] OR ??? SUPERVISOR MAIL CARRIERS SURGERY ??? ORTHOPEDIC SURGERY ??? THORACIC SURGERY [...] -Refills sent. Return for Follow up with [facility] [place] and PCP as scheduled.. Tatyana Haas APRN CNP [facility] documented in this encounter Plan of Treatment Upcoming Encounters Date Type Specialty Care Team Description 11/29/2021 Office Visit Wound Care Luis Camara DPM [address] [place] [address] (Wo rk) 01/21/2022 Office Visit Gastroenterology Juanis Levi [address] [place] [address] Luis Fernando Miles MD [address] [address] documented as of this encounter Visit Diagnoses Diagnosis Rash and nonspecific skin eruption - Pari trino Rash and other nonspecific skin eruption Drug-induced constipation Other constipation Alcohol abuse, continuous Nondependent alcohol abuse, continuous d rinking behavior documented in this encounter Additional Health Concerns Assessment Noted Time PHQ-9 Depression Total Score: 10 07/08/2018 1:27 PM CD T documented as of this encounter Care Teams Cyber Engineer Relationship Specialty Start Date End Date Clinic, [facility] PCP - General 01/20/18 06/28/[address] [place] [address] documented as of this encounter
--- OUTSIDE RECORDS SUMMARY | 2021-11-28 13:44 | XMS_ITS | Encounter Summary ---
:1980 Author Organization [place] Address [facility] [place] [address] Care Team Providers Name Role Phone Clinic, [facility] Primary Care Provide r Reason for Visit Reason Comments Alcohol Problem Encounter Details Date Type Department Care Team Description 05/04/2018 Emergency [facility] Christophre Carrion Al coholic intoxication without complication (H); Od[facility] Emergency Elevated LFTs Dept [facility] [address] [place], [place] [address] [address] [place] [address] [place] [address] (Wo rk) Social History Tobacco Use Types Packs/Day Years Used Date Smoking Tobacco: Every Day Cigarettes 0.1 10 Smokeless Tobacco: Never Comments: 5 cigarettes a day Alcohol Use Standard Drinks/Week Comments Yes 0 (1 standard drink = 0.6 oz pure alcoho l) binge drinks Sex Assigned at Date Recorded Female 01/14/2020 10:57 AM EMERGENCY VETERINARIAN documented as of this encounter Last Filed [...] until I get to the room This copy writer kindly directed patient and was told alcohol [...] accompanied to the ED by mother PCP: [facility] Marital Status: Smoking status: current every day [...] presenting to the emergency department accompanied by [id number] for evaluation of an alcohol problem. VS [...] agreeable towards. Patient will be transferred to [facility] for further treatment of her symptoms. 3-day [...] SUBUTEX 2 mg, Sublingual, 2 TIMES DAILY ILeydi am serving as a scribe at 8:06 PM on 05/04/2018 to document services personally performed by Christopher Carrion MD based on my observations and the provider's statements to me. Leydi Dye 05/04/2018 [facility] EMERGENCY DEPARTMENT Christopher Carrion MD 05/05/18 0019 documented in this encounter Plan of Treatment Upcoming Encounters Date Type Specialty Care Team Description 11/29/2021 Office Visit Wound Care Luis Camara DPM [address] [place] [address] (Wo rk) 01/21/2022 Office Visit Gastroenterology Juanis Levi [address] [place] [address] Luis Fernando Miles MD [address] [address] documented as of this encounter Procedures Procedure [...] Signature Magnesium 2.0 1.6 - 2.3 05/04/2018 [facility] mg/dL 9:02 PM CDT HOSPITAL Specimen Anatomical Collection Method Collection Time Receive d Time (Source) Location / / Volume Laterality Blood specimen 05/04/2018 8:30 PM 019 8:42 (specimen) CDT PM CDT Christopher Carrion MD LAB - BLOOD ORDERABLES Performing Organization Address City/State/ZIP Code Phon e Number [place] [address] [address] H[facility] [address] [phone] (ABNORMAL) Comprehensive metabolic panel (05/04/2018 8:30 PM CDT) athologist Signature Sodium 139 133 - 144 05/04/2018 [place] mmol/L 8:54 PM [facility] Potassium 3.2 (L) 3.4 - 5.3 05/04/2018 [place] mmol/L 8:54 PM [facility] Chloride 103 94 - 109 05/04/2018 [place] mmol/L 8:54 PM [facility] Carbon Dioxide 28 20 - 32 05/04/2018 [facility] mmol/L 9:01 PM [facility] Anion Gap 8 3 - 14 05/04/2018 [facility] mmol/L 9:01 PM [facility] Glucose 102 (H) 70 - 99 05/04/2018 [facility] mg/dL 9:01 PM [facility] Urea Nitrogen 5 (L) 7 - 30 05/04/2018 [facility] mg/dL 9:01 PM [facility] Creatinine 0.68 0.52 - 05/04/2018 [facility] 1.04 mg/dL 9:01 PM [facility] GFR Estimate >90 >60 05/04/2018 [place] mL/min/{1. 9:01 PM [facility] 73_m2} HOSPITAL Comment: Non GFR Calc Starting 02/03/2018, serum creatinine ba sed estimated GFR (eGFR) will be calculated using the Chronic Kidney Dise [facility] Epidemiology Collaboration (CKD-EPI) equation. GFR Estimate If >90 >60 mL/min/{1.73_m2} 05/04/2018 9: 01 PM [facility] Comment: GFR Calc Starting 02/03/2018, serum creatinine ba sed estimated GFR (eGFR) will be calculated using the Chronic Kidney Dise [facility] Epidemiology Collaboration (CKD-EPI) equation. Calcium 8.5 8.5 - 10.1 05/04/2018 9:01 PM [facility] mg/dL [facility] Bilirubin Total 1.2 0.2 - 1.3 mg/dL 05/04/2018 9:02 PM [facility] Albumin 4.1 3.4 - 5.0 g/dL 05/04/2018 9:02 PM [facility] Protein Total 8.6 6.8 - 8.8 g/dL 05/04/2018 9:02 PM [facility] Alkaline Phosphatase 157 (H) 40 - 150 U/L 05/04/2018 9:02 PM [facility] ALT 173 (H) 0 - 50 U/L 05/04/2018 9:02 PM [facility] AST 250 (H) 0 - 45 U/L 05/04/2018 9:02 PM [facility] Specimen Anatomical Collection Method Collection Time Receive d Time (Source) Location / / Volume Laterality Blood specimen 05/04/2018 8:30 PM 019 8:42 (specimen) CDT PM CDT Christopher Carrion MD LAB - BLOOD ORDERABLES Performing Organization Address City/State/ZIP Code Phon e Number [facility] [address] [place], [place] [address] [facility] [address] [phone] (ABNORMAL) CBC with platelets differential (05/04/2018 8:30 PM CDT) [facility] gist Method Time Signature WBC 4.2 4.0 - 05/04/2018 [facility] 11.0 8:45 PM [facility] 10e9/L HOSPITAL RBC Count 4.55 3.8 - 5.2 05/04/2018 [facility] 10e12/L 8:45 PM [facility] Hemoglobin 14.8 11.7 - 05/04/2018 [facility] 15.7 g/dL 8:45 PM [facility] Hematocrit 43.9 35.0 - 05/04/2018 [facility] 47.0 % 8:45 PM [facility] MCV 97 78 - 100 05/04/2018 [facility] fl 8:45 PM [facility] MCH 32.5 26.5 - 05/04/2018 [facility] 33.0 pg 8:45 PM [facility] MCHC 33.7 31.5 - 05/04/2018 [facility] 36.5 g/dL 8:45 PM [facility] RDW 13.3 10.0 - 05/04/2018 [facility] 15.0 % 8:45 PM [facility] Platelet Count 144 (L) 150 - 450 05/04/2018 [facility] 10e9/L 8:45 PM [facility] Diff Method Automated 05/04/2018 [facility] Method 8:45 PM [facility] % Neutrophils 49.5 % 05/04/2018 [facility] 8:45 PM [facility] % Lymphocytes 39.2 % 05/04/2018 [facility] 8:45 PM [facility] % Monocytes 8.4 % 05/04/2018 [facility] 8:45 PM [facility] % Eosinophils 2.2 % 05/04/2018 [place] 8:45 PM [facility] % Basophils 0.7 % 05/04/2018 [place] 8:45 PM [facility] % Immature 0.0 % 05/04/2018 [facility] Granulocytes 8:45 PM [facility] Nucleated RBCs 0 0 /100 05/04/2018 [facility] 8:45 PM [facility] Absolute 2.1 1.6 - 8.3 05/04/2018 [facility] Neutrophil 10e9/L 8:45 PM [facility] Absolute 1.6 0.8 - 5.3 05/04/2018 [facility] Lymphocytes 10e9/L 8:45 PM [facility] Absolute 0.4 0.0 - 1.3 05/04/2018 [facility] Monocytes 10e9/L 8:45 PM [facility] Absolute 0.1 0.0 - 0.7 05/04/2018 [place] Eosinophils 10e9/L 8:45 PM [facility] Absolute 0.0 0.0 - 0.2 05/04/2018 [place] Basophils 10e9/L 8:45 PM [facility] Abs Immature 0.0 0 - 0.4 05/04/2018 [place] Granulocytes 10e9/L 8:45 PM [facility] Absolute 0.0 05/04/2018 [place] Nucleated RBC 8:45 PM [facility] Specimen Anatomical Collection Method Collection Time Receive d Time (Source) Location / / Volume Laterality Blood specimen 05/04/2018 8:30 PM 019 8:42 (specimen) CDT PM CDT Christopher Carrion MD LAB - BLOOD ORDERABLES Performing Organization Address City/State/ZIP Code Phon e Number [facility] [address] [place] [address] [facility] [address] [phone] (ABNORMAL) Alcohol ethyl (05/04/2018 8:30 PM CDT) P athologist Signature Ethanol g/dL 0.21 (H) <0.01 g/dL 05/04/2018 [place] 9:02 PM [facility] Specimen Anatomical Collection Method Collection Time Receive d Time (Source) Location / / Volume Laterality Blood specimen 05/04/2018 8:30 PM 019 8:42 (specimen) CDT PM CDT Christopher Carrion MD LAB - BLOOD ORDERABLES Performing Organization Address City/State/ZIP Code Phon e Number [facility] [address] [place], [place] [address] [facility] [address] [place], [place] [address] [facility] [phone] ISTAT HCG Quantitative POCT (05/04/2018 8:28 PM [...] 20 mEq, Oral, ONCE, On Fri05/04/18 at 2152, For 1 dose, DO NOT CRUSH sodium [...] mg (COMPLETED) 2044 (Given - Provider: Lucia Chang RN) 5 mg, Intravenous, Administer over 1-4 M inutes, ONCE, Fri05/04/18 at 2012, For 1 dose, This drug may cause significant respiratory depression. Monitor respiratory status and vital signs carefully for 1 hour after each dose. folic acid (FOLVITE) tablet 1 mg (COMPLETED) 2021 (Given - Provider: Brittnee Tyler RN) 1 mg, Oral, ONCE, Fri05/04/18 at 2012, For 1 dose multivitamin w/minerals (THERA-VIT-M) tablet 1 tablet (COMPLETED ) 2021 (Given - Provider: Brittnee Tyler RN) 1 tablet, Oral, ONCE, Fri05/04/18 at 2012, For 1 dose potassium chloride ER (K-DUR/KLOR-CON M) CR tablet 20 mEq (COMPL ETED) 2157 (Given - Provider: Lucia Chang, RN) 20 mEq, Oral, ONCE, 05/04/18 at 215, For 1 dose, DO NOT TOBIAS H vitamin B1 (THIAMINE) tablet 100 mg (COMPLETED) 2021 (Given - Provider: Brittnee Tyler, GENARO) 100 mg, Oral, ONCE, Fri05/04/18 at 2012, For 1 dose Continuous Medication Order 05/02/2018 05/03/2018 05/04/2018 sodium chloride 0.9% infusion 20 13 (Canceled Entry - Provider: Orders Generic Provider - Comment: Automatically canceled at discontinue of medication order) at 125 mL/hr, Intravenous, CONTINUOUS, A dminister after the bolus., Starting 05/04/18 at 2012, Until Fri05/05/18 at 0117 documented in this encounter Care Teams Commodity Supervisor Relationship Specialty Start Date End Date Clinic, [facility] PCP - General 01/20/18 06/28/[address] [place] [address] [id number] documented as of this encounter
--- OUTSIDE RECORDS SUMMARY | 2021-11-28 13:44 | XMS_ITS | Encounter Summary ---
:1980 Author Organization [place] Address [address] [facility] [place] [address] Care Team Providers Name Role Phone Clinic, [facility] Primary Care Provide r Encounter Details Date [...] Date Recorded Female 01/14/2020 10:57 AM CAR SEAT MAKER documented as of this encounter Plan of Treatment Upcoming Encounters Date Type Specialty Care Team Description 11/29/2021 Office Visit Wound Care Luis Camara DPM [address] [place], [place] [phone] (Wo rk) 01/21/2022 Office Visit Gastroenterology Juanis Levi [address] [place] [address] Luis Fernando Miles MD [address] [facility] [place] [address] documented as of this encounter Visit Diagnoses Not on filedocumented in this encounter Additional Health Concerns Assessment Noted Time PHQ-9 Depression Total Score: 10 07/08/2018 1:27 PM CD T documented as of this encounter Care Teams Digital Watch Assembler Relationship Specialty Start Date End Date Clinic, [facility] PCP - General 01/20/18 06/28/[address] [place] [address] documented as of this encounter
--- OUTSIDE RECORDS SUMMARY | 2021-11-28 13:44 | XMS_ITS | Encounter Summary ---
:1980 Author Organization [place] Address [address] [place] [address] Care Team Providers Name Role Phone Clinic, [facility] Primary Care Provide r Encounter Details Date [...] at Date Recorded Female 01/14/2020 10:57 AM GETTER OPERATOR documented as of this encounter Plan of Treatment Upcoming Encounters Date Type Specialty Care Team Description 11/29/2021 Office Visit Wound Care Luis Camara DPM [address] [place], [place] [phone] (Wo rk) 01/21/2022 Office Visit Gastroenterology Juanis eLvi [address] [place] [address] Luis Fernando Miles MD 516 [facility] [place] [address] documented as of this encounter Visit Diagnoses Not on filedocumented in this encounter Additional Health Concerns Assessment Noted Time PHQ-9 Depression Total Score: 10 07/08/2018 1:27 PM CD T documented as of this encounter Care Teams Information Technology Instructor Relationship Specialty Start Date End Date Clinic, [facility] PCP - General 01/20/18 06/28/[address] [place] [address] documented as of this encounter
--- OUTSIDE RECORDS SUMMARY | 2021-11-28 13:44 | XMS_ITS | Encounter Summary ---
:1980 Author Organization [place] Address [address] [facility] [place] [address] Care Team Providers Name Role Phone Clinic, [...] at Date Recorded Female 01/14/2020 10:57 AM HIGH SCHOOL BIOLOGY TEACHER documented as of this encounter Plan of Treatment Upcoming Encounters Date Type Specialty Care Team Description 11/29/2021 Office Visit Wound Care Luis Camara DPM [address] [place], [place] [phone] (Wo rk) 01/21/2022 Office Visit Gastroenterology Juanis Levi [address] [place] [address] Luis Fernando Miles MD 516 [facility] [place] [address] documented as of this encounter Visit Diagnoses Not on filedocumented in this encounter Additional Health Concerns Assessment Noted Time PHQ-9 Depression Total Score: 10 07/08/2018 1:27 PM CD T documented as of this encounter Care Teams District Plant Engineer Relationship Specialty Start Date End Date Clinic, [facility] PCP - General 01/20/18 06/28/[address] [place] [address] documented as of this encounter
--- OUTSIDE RECORDS SUMMARY | 2021-11-28 13:44 | XMS_ITS | Encounter Summary ---
:1980 Author Organization [place] Address [address] [facility] [place] [address] Care Team Providers Name Role Phone Clinic, [facility] Primary Care Provide r Reason for Visit Reason Comments Constipation Encounter Details Date Type Department Care Team Description 07/24/2018 Office Visit [facility] Tatyana Haas, Drug- induced constipation (Primary Dx); Clinic Enders SUPERVISOR COLD ROLLING INGREDIENT SCALER HELPER Rash and nonspecific skin eruption; [address] MNGI DIGESTIVE Alcohol abuse, continuous [address] [place], [place] [address] [address] [address] [place] [facility] [phone] [place] [address] (Wo rk) Social History Tobacco Use Types Packs/Day Years Used Date Smoking Tobacco: Every Day Cigarettes 0.3 10 Smokeless Tobacco: Never Comments: 5-8 cigarettes a day Alcohol Use Standard Drinks/Week Comments Not Currently 0 (1 standard drink = 0.6 oz pure alcoho l) sober 16 days Sex Assigned at Date Recorded Female 01/14/2020 10:57 AM CAFETERIA CASHIER documented as of this encounter Last Filed [...] following health issues: Patient is coming from [facility] where she is in treatment for alcohol dependence and presenting to clinic for constipation and Rash. Patient reports that she will be at till next Friday. Patient is seen by a PCP in [place]. Patient reports that she is smoking about [...] So Luciano MD; Location: [facility] OR ??? OUTSOLE LEVELER SURGERY ??? ORTHOPEDIC SURGERY ??? THORACIC SURGERY [...] and Alcohol Dependence. Tatyana Haas APRN CNP [facility] documented in this encounter Plan of Treatment Upcoming Encounters Date Type Specialty Care Team Description 11/29/2021 Office Visit Wound Care Luis Camara DPM [address] [place] [address] (Wo rk) 01/21/2022 Office Visit Gastroenterology Juanis Levi [address] [place] [phone] Luis Fernando Miles MD 516 [facility] [address] [place], [place] [address] documented as of this encounter Visit Diagnoses Diagnosis Drug-induced constipation - Primary Other constipation Rash and nonspecific skin eruption Rash and other nonspecific skin eruption Alcohol abuse, continuous Nondependent alcohol abuse, continuous d rinking behavior documented in this encounter Additional Health Concerns Assessment Noted Time PHQ-9 Depression Total Score: 10 07/08/2018 1:27 PM CD T documented as of this encounter Care Teams Chief Power Dispatcher Relationship Specialty Start Date End Date Clinic, [facility] PCP - General 01/20/18 06/28/[address] [place] [address] documented as of this encounter
--- OUTSIDE RECORDS SUMMARY | 2021-11-28 13:45 | XMS_ITS | Encounter Summary ---
:1980 Author Organization [place] Address [address] [facility] [place] [address] Care Team Providers Name Role Phone Luis Fernando Magana Primary Care Provider Reason for Visit Reason Onset Date Comments Forms 03/12/2017 extended leave Encounter Details Date Type Department Care Team Description 03/12/2017 Telephone [facility] Women's Nurse, [facility] Whs Forms (extended leave) Clinic [place] [address] [facility] Professional Bldg [facility] [address] [place], [place] [phone] Social History Tobacco Use Types Packs/Day Years Used Date Smoking Tobacco: Every Day Cigarettes 0.1 10 Smokeless Tobacco: Never Comments: 5 cigarettes a day Alcohol Use Standard Drinks/Week Comments Yes 0 (1 standard drink = 0.6 oz pure Stoppe d after found out alcohol) Sex Assigned at Date Recorded Female 01/14/2020 10:57 AM SUPERVISOR TYPE DISK QUALITY CONTROL documented as of this encounter Miscellaneous Notes Telephone Encounter - Gregoria Villanueva RN - 03/13/2017 3:[address] Cyr approved 3 more months of assistance for Stephani. Form was signed and faxed back to [facility].Scanned into chart. Copy emailed to patient. RVISOR TYPE DISK QUALITY CONTROL Telephone Encounter - Gregoria Villanueva RN - 03/12/2017 12:41 PM CST Spoke with Stephani who is a couple months and had a premature baby that was in NICU here andthen transferred to [facility] to be closer to home. Her baby is home now and she is not ready to go back to work. She is getting assistance with housing, food, and monthly funding. [facility] to sign a form stating that the patient had a complicated post- period in order for these services to be continued. Patient will email them to clinic for review. RVISOR TYPE DISK QUALITY CONTROL documented in this encounter Plan of Treatment Upcoming Encounters Date Type Specialty Care Team Description 11/29/2021 Office Visit Wound Care Luis Camara DPM [address] [place], [place] [phone] (Wo rk) 01/21/2022 Office Visit Gastroenterology Juanis Levi [address] [place] [address] Luis Fernando Miles MD [address] [phone] documented as of this encounter Visit Diagnoses Not on filedocumented in this encounter Care Teams Yarn Inspector Relationship Specialty Start Date End Date Luis Fernando Magana PCP - General Family Practice 12/07/16 01/19/[address] [address] documented as of this encounter
--- OUTSIDE RECORDS SUMMARY | 2021-11-28 13:45 | XMS_ITS | Encounter Summary ---
:1980 Author Organization [place] Address [address] [place] [address] Care Team Providers Name Role Phone Luis [...] at Date Recorded Female 01/14/2020 10:[address] MONITOR documented as of this encounter Miscellaneous Notes [...] call. Will continue to follow and support. T MONITOR documented in this encounter Plan of Treatment Upcoming Encounters Date Type Specialty Care Team Description 11/29/2021 Office Visit Wound Care Luis Camara DPM [address] [facility] [place] [address] (Wo rk) 01/21/2022 Office Visit Gastroenterology Juanis Levi [address] [place] [address] Luis Fernando Miles MD 516 [facility] [place] [address] documented as of this encounter Visit Diagnoses Not on filedocumented in this encounter Care Teams Knot Bumper Relationship Specialty Start Date End Date Luis Fernando Magana PCP - General Family Practice 12/07/16 01/19/[address] [address] documented as of this encounter
--- OUTSIDE RECORDS SUMMARY | 2021-11-28 13:45 | XMS_ITS | Encounter Summary ---
:1980 Author Organization [place] Address [address] [facility] [place] [address] Care Team Providers Name Role Phone Luis Fernando Magana Primary Care Provider Reason for Visit Reason Onset Date Comments Medication Request 04/29/2017 call in subutex Encounter Details Date Type Department Care Team Description 04/29/[address] [facility] Edgar Alfredo, [facility] ication Request Clinic Ashly VÁSQUEZ (call in subutex) [address] [place] [address] [place] [phone] (Wo rk) Social History Tobacco Use Types Packs/Day Years Used Date Smoking Tobacco: Every Day Cigarettes 0.1 10 Smokeless Tobacco: Never Comments: 5 cigarettes a day Alcohol Use Standard Drinks/Week Comments Yes 0 (1 standard drink = 0.6 oz pure Stoppe d after found out alcohol) Sex Assigned at Date Recorded Female 01/14/2020 10:57 AM VOLTAGE INSPECTOR documented as of this encounter Miscellaneous Notes Telephone Encounter - Santosh Pyle RN - 04/29/2017 4:02 PM CDT Rx called into Pt's pharmacy Santosh Pyle RN Telephone Encounter - Vickie Espinal - 04/29/2017 3:56 PM CDT Reason for Call: Medication or medication refill: Do you use a [facility]? Name of the pharmacy and phone number for the current request: [facility] in [place] [phone] Name of the medication requested: subutex Other request: Please call in subutex that was ordered 04/24/[address] Alfredo. Per patient and pharmacy it was never called in. Thanks. Can we leave a detailed message on this number? YES Phone number patient can be reached at: Home number on file [phone] (home) Best Time: anytime Call taken on 04/29/2017 at 3:56 PM by Vickie Espinal documented in this encounter Plan of Treatment Upcoming Encounters Date Type Specialty Care Team Description 11/29/2021 Office Visit Wound Care Luis Camara DPM [address] [place], [place] [phone] (Wo rk) 01/21/2022 Office Visit Gastroenterology Juanis Levi [address] [place] [phone] Luis Fernando Miles MD 516 [facility] [address] [place], [place] [phone] documented as of this encounter Visit Diagnoses Not on filedocumented in this encounter Care Teams Art Editor Relationship Specialty Start Date End Date Luis Fernando Magana PCP - General Family Practice 12/07/16 01/19/[address] [address] documented as of this encounter
--- OUTSIDE RECORDS SUMMARY | 2021-11-28 13:45 | XMS_ITS | Encounter Summary ---
:1980 Author Organization [place] Address [address] [facility] [place] [address] Care Team Providers Name Role Phone Luis Fernando Magana Primary Care Provider Reason for Visit Reason Onset Date Comments Refill Request 01/02/2017 Subutex Encounter Details Date Type Department Care Team Description 01/02/2017 Refill [facility] Edgar Alfredo, Ref ill Request (Subutex) Clinic [place] [address] [place] [address] [place] [phone] (Wo rk) Social History Tobacco Use Types Packs/Day Years Used Date Smoking Tobacco: Every Day Cigarettes 0.1 10 Smokeless Tobacco: Never Comments: 5 cigarettes a day Alcohol Use Standard Drinks/Week Comments Yes 0 (1 standard drink = 0.6 oz pure Stoppe d after found out alcohol) Sex Assigned at Date Recorded Female 01/14/2020 10:57 AM GOLF STARTER AND RANGER documented as of this encounter Miscellaneous Notes Telephone Encounter - Edgar Alfredo MD - 01/03/2017 12:44 PM CST Please call in Subutex ordered STARTER AND RANGER Telephone Encounter - Laura Fried RN - 01/03/2017 8:48 AM CST Controlled Substance Refill Request for Subutex Last refill: 12/05/16, 120 tablets, 24 day supply per [facility] Last clinic visit: 10/10/16 Next appt: 01/23/17 Controlled substance agreement on file: No. Documentation in problem list reviewed: Yes Processing: Fax Rx to pt's pharmacy RX monitoring program ([place]) reviewed: RENAL MEDICINE PHYSICIAN reviewed- Pt received 2 prescriptions for oxycodone frommindy Leyva [facility] profile: [email or web address] Thank you! Laura Fried RN STARTER AND RANGER Telephone Encounter - Dora Merchant - 01/02/2017 1:44 PM CST Reason for Call: Other prescription Detailed comments: Pt states that she discharged from the hospital on 12/27/16, and would like a refill on Subutex Phone Number Patient can be reached at: Home number on file [phone] (home) Best Time: Anytime Can we leave a detailed message on this number? YES Call taken on 01/02/2017 at 1:44 PM by Dora Merchant STARTER AND RANGER documented in this encounter Plan of Treatment Upcoming Encounters Date Type Specialty Care Team Description 11/29/2021 Office Visit Wound Care Luis Camara DPM [address] [place] [address] (Wo rk) 01/21/2022 Office Visit Gastroenterology Juanis Levi [address] [place] [address] Luis Fernando Miles MD [address] [address] documented as of this encounter Visit Diagnoses Diagnosis Uncomplicated opioid dependence (H) Opioid type dependence, unspecified documented in this encounter Care Teams Leather Fitter Relationship Specialty Start Date End Date Luis Fernando Magana PCP - General Family Practice 12/07/16 01/19/[address] [address] documented as of this encounter
--- OUTSIDE RECORDS SUMMARY | 2021-11-28 13:45 | XMS_ITS | Encounter Summary ---
:1980 Author Organization [place] Address [address] [facility] [place] [address] Care Team Providers Name Role Phone Luis Fernando Magana Primary Care Provider Reason for Visit Reason Comments Medication Refill WELLBUTRIN SR 150 MG 12 hr t ablet Encounter Details Date Type Department Care Team Description 05/26/[address] 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 documented as of this encounter Miscellaneous Notes Telephone Encounter - Santosh Pyle RN - 05/27/2017 8:50 AM CDT Routing [...] Office Visit Wound Care Luis Camara DPM [address] [place], [place] [phone] (Wo rk) 01/21/2022 Office Visit Gastroenterology Juanis [place] [address] [place] [address] Luis Fernando Miles MD [address] [place] [address] documented as of this encounter Visit Diagnoses Diagnosis Major depressive disorder, recurrent epi sode, moderate (H) Major depressive disorder, recurrent epi sode, moderate Uncomplicated opioid dependence (H) Opioid type dependence, unspecified documented in this encounter Care Teams An/Sqq 89(V)15 Sonar System Journeyman Relationship Specialty Start Date End Date Luis Fernando Magana PCP - General Family Practice 12/07/16 01/19/18 [place] [address] documented as of this encounter
--- OUTSIDE RECORDS SUMMARY | 2021-11-28 13:45 | XMS_ITS | Encounter Summary ---
:1980 Author Organization [place] Address [address] [place] [address] Care Team Providers Name Role Phone Luis Fernando Magana Primary Care Provider Encounter Details Date Type Department Care Team Description 04/07/2017 Telephone [facility] Nithya Alfredo MD [place] [address] [facility] [address] [place], [place] [address] [phone] [place] [phone] Social History Tobacco Use Types Packs/Day Years Used Date Smoking Tobacco: Every Day Cigarettes 0.1 10 Smokeless Tobacco: Never Comments: 5 cigarettes a day Alcohol Use Standard Drinks/Week Comments Yes 0 (1 standard drink = 0.6 oz pure Stoppe d after found out alcohol) Sex Assigned at Date Recorded Female 01/14/2020 10:57 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 documented as of this encounter Miscellaneous Notes Telephone Encounter - Edgar Alfredo MD - 04/07/2017 12:38 PM CST Called patient re: missed appointment Please add on 04/10/17 at 2:30 Bridge ordered 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 documented in this encounter Plan of Treatment Upcoming Encounters Date Type Specialty Care Team Description 11/29/2021 Office Visit Wound Care Luis Camara, [place] [address] [place], [place] [phone] (Wo rk) 01/21/2022 Office Visit Gastroenterology Juan[place] [address] [place] [phone] Luis Fernando Miles MD 516 [facility] [address] [place], [place] [address] documented as of this encounter Visit Diagnoses Diagnosis Uncomplicated opioid dependence (H) Opioid type dependence, unspecified documented in this encounter Care Teams Pulley Worker Relationship Specialty Start Date End Date Luis Fernando Magana PCP - General Family Practice 12/07/16 01/19/[address] [address] documented as of this encounter
--- OUTSIDE RECORDS SUMMARY | 2021-11-28 13:45 | XMS_ITS | Encounter Summary ---
:1980 Author Organization [place] Address [address] [facility] [place] [address] Care Team Providers Name Role Phone Luis Fernando Magana Primary Care Provider Reason for Visit Reason Onset Date Comments Erroneous encounter-disregard 04/02/2017 Encounter Details Date Type Department Care Team Description 03/31/2017 Office Visit [facility] Edgar Alfredo ERRONEOUS Clinic Ashly Gauthier MD ENCOUNTER--DISREGARD [address] [place] (Primary Dx) [address] [place] [phone] Social History Tobacco Use Types Packs/Day Years Used Date Smoking Tobacco: Every Day Cigarettes 0.1 10 Smokeless Tobacco: Never Comments: 5 cigarettes a day Alcohol Use Standard Drinks/Week Comments Yes 0 (1 standard drink = 0.6 oz pure Stoppe d after found out alcohol) Sex Assigned at Date Recorded Female 01/14/2020 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 Please disregard. NISTRATIVE SERVICES MANAGER documented in this encounter Plan of Treatment Upcoming Encounters Date Type Specialty Care Team Description 11/29/2021 Office Visit Wound Care Luis Camara, [place] [address] [place] [address] (Wo rk) 01/21/2022 Office Visit Gastroenterology Juanis [place] [address] [place] [address] Luis Fernando Miles MD [address] [place], [place] [phone] documented as of this encounter Visit Diagnoses Diagnosis ERRONEOUS ENCOUNTER--DISREGARD - Primary documented in this encounter Care Teams Toll Settlement Clerk Relationship Specialty Start Date End Date Luis Fernando Magana PCP - General Family Practice 12/07/16 01/19/[address] [address] documented as of this encounter
--- OUTSIDE RECORDS SUMMARY | 2021-11-28 13:45 | XMS_ITS | Encounter Summary ---
:1980 Author Organization [place] Address [address] [facility] [place] [address] Care Team Providers Name Role Phone Luis Fernando Magana Primary Care Provider Reason for Visit Reason Onset Date Comments Call Back 08/11/2017 Insurance questions Encounter Details Date Type Department Care Team Description 08/11/2017 Telephone [facility] Edgar Workman Cal l Back (Insurance Clinic Jet questions ) [address] [place] [address] [place] [phone] (Wo rk) Social History Tobacco Use Types Packs/Day Years Used Date Smoking Tobacco: Every Day Cigarettes 0.1 10 Smokeless Tobacco: Never Comments: 5 cigarettes a day Alcohol Use Standard Drinks/Week Comments Yes 0 (1 standard drink = 0.6 oz pure Stoppe d after found out alcohol) Sex Assigned at Date Recorded Female 01/14/2020 10:57 AM STEREOTYPE CASTER documented as of this encounter Miscellaneous Notes Addendum Note - Edgar Workman MD - 09/04/2017 1:51 PM CDT Addended by: EDGAR WORKMAN on: 09/04/2017 01:51 PM Modules accepted: Orders Telephone Encounter - Edgar Workman MD - 09/04/2017 1:50 PM CDT Spoke to patient 1 month taper ordered Again advised to contact [employer] re: whom she can see Telephone Encounter [...] locating a new provider or to use [employer] to locate a provider. Will forward to [facility] provider for review. Telephone Encounter - Kari Turner - 09/04/2017 12:17 PM CDT Pt called regarding the same issue. Pt states she is still unable to switch her Insurance from [employer] (which [facility] does not accept) to [employer] (which we do accept). Pt stated they can not switch her until the end of 2017. Pt is requesting a call back from [facility] to discuss this further and request bridges of subx till she can switch insurances. Pt# [phone] (okay to leave detailed message) Kari Turner Forklift Mechanic Telephone Encounter - Edgar Workman MD - 08/11/2017 4:59 PM CDT Discussed with patient Advised find doctor that prescribes Suboxone [place] SUPPORT CLERK - no issues 1 month bridge called in Telephone Encounter - Mark Roldan - 08/11/2017 12:42 PM CDT Reason for Call: insurance Detailed comments: pt has [employer] [place] insurance, the clinic don't take this, pt states she call [facility] and was told that she can't change her insurance until the end of the year. Pt want to discuss this with Dr. Workman. Phone Number Patient can be reached at: Home number on file [phone] (home) Best Time: anytime Can we leave a detailed message on this number? YES Call taken on 08/11/2017 at 12:43 PM by Mark Roldan documented in this encounter Plan of Treatment Upcoming Encounters Date Type Specialty Care Team Description 11/29/2021 Office Visit Wound Care Luis Camara DPM [address] [place] [address] (Wo rk) 01/21/2022 Office Visit Gastroenterology Juanis [place] [address] [place] [phone] Luis Fernando Miles MD 516 [facility] [address] [place] [address] documented as of this encounter Visit Diagnoses Diagnosis Uncomplicated opioid dependence (H) Opioid type dependence, unspecified Major depressive disorder, recurrent epi sode, moderate (H) Major depressive disorder, recurrent epi sode, moderate documented in this encounter Care Teams Stallion Manager Relationship Specialty Start Date End Date Luis Fernando Magana PCP - General Family Practice 12/07/16 01/19/[address] [address] documented as of this encounter
--- OUTSIDE RECORDS SUMMARY | 2021-11-28 13:45 | XMS_ITS | Encounter Summary ---
:1980 Author Organization [place] Address [address] [facility] [place] [address] Care Team Providers Name Role Phone Luis Fernando Magana Primary Care Provider Reason for Visit Reason Onset Date Comments Erroneous encounter-disregard 01/23/2017 Encounter Details Date Type Department Care Team Description 01/23/2017 Office Visit [facility] Edgar Alfredo ERRONEOUS Clinic Ashly Gauthier MD ENCOUNTER--DISREGARD [address] [place] (Primary Dx) [address] [place] [phone] Social History Tobacco Use Types Packs/Day Years Used Date Smoking Tobacco: Every Day Cigarettes 0.1 10 Smokeless Tobacco: Never Comments: 5 cigarettes a day Alcohol Use Standard Drinks/Week Comments Yes 0 (1 standard drink = 0.6 oz pure Stoppe d after found out alcohol) Sex Assigned at Date Recorded Female 01/14/2020 10:57 AM ORDER TRACER documented as of this encounter Progress Notes Edgar Alfredo MD - 01/23/2017 1:15 PM CST This encounter was opened in error. Please disregard. R TRACER documented in this encounter Plan of Treatment Upcoming Encounters Date Type Specialty Care Team Description 11/29/2021 Office Visit Wound Care Luis Camara, [place] [address] [place] [address] (Wo rk) 01/21/2022 Office Visit Gastroenterology Juanis [place] [address] [place] [address] Luis Fernando Miles MD 516 [facility] [address] [place], [place] [address] documented as of this encounter Visit Diagnoses Diagnosis ERRONEOUS ENCOUNTER--DISREGARD - Primary documented in this encounter Care Teams Mouse Breeder Relationship Specialty Start Date End Date Luis Fernando Magana PCP - General Family Practice 12/07/16 01/19/[address] [address] documented as of this encounter
--- OUTSIDE RECORDS SUMMARY | 2021-11-28 13:45 | XMS_ITS | Encounter Summary ---
:1980 Author Organization [place] Address [address] [place] [address] Care Team Providers Name Role Phone Luis Fernando Magana Primary Care Provider Reason for Visit Reason Comments Addiction Problem Encounter Details Date Type Department Care Team Description 04/24/2017 Office Visit [facility] Edgar Alfredo Uncomplic ated opioid Clinic Ashly Gauthier MD dependence (H) [address] [place] [address] [place] [phone] Social History Tobacco Use Types Packs/Day Years Used Date Smoking Tobacco: Every Day Cigarettes 0.1 10 Smokeless Tobacco: Never Comments: 5 cigarettes a day Alcohol Use Standard Drinks/Week Comments Yes 0 (1 standard drink = 0.6 oz pure Stoppe d after found out alcohol) Sex Assigned at Date Recorded Female 01/14/2020 10:57 AM ALTERATION WORKROOM SUPERVISOR documented as of this encounter Last Filed Vital Signs Vital Sign Reading Time Taken Comments Blood Pressure 112/66 04/24/2017 4:44 PM ALTERATION WORKROOM SUPERVISOR Pulse 86 04/24/2017 4:44 PM ALTERATION WORKROOM SUPERVISOR Temperature 37 ??C (98.6 ??F) 04/24/2017 4:44 PM ALTERATION WORKROOM SUPERVISOR Respiratory Rate 12 04/24/2017 4:44 PM ALTERATION WORKROOM SUPERVISOR Oxygen Saturation 100% 04/24/2017 4:44 PM ALTERATION WORKROOM SUPERVISOR Inhaled Oxygen Concentration - - Weight 82.1 kg (181 lb) 04/24/2017 4:44 PM ALTERATION WORKROOM SUPERVISOR Height - - Body Mass Index 29.21 12/07/2016 2:19 PM CDT documented in this encounter Patient Instructions Patient InstructionsAmerEdgar MD - 04/24/2017 4:15 PM CST Continue your Buprenorphine 2 mg films/tabs 4 times daily Follow up 2 month A prescription has been sent to your pharmacy of choice. If a prior authorization is required it maytake several days to get your medication. Please make sure your pharmacy had your contact information so they can contact you when it is ready to leaf size picker You are at risk for overdose [...] is generally not enough to lead to jail recovery. This may include having some type [...] one. The addiction medicine clinic number is [phone]. If you cannot make your appointment please call the office and reschedule immediately. If you are out of medication a bridge can be sent to your pharmacy to last until the date of your rescheduled appointment. Our clinic is open from Friday-Friday 0800-4:30pm and there is not an SUPERVISOR GRAIN AND YEAST PLANTS after hours service. If medical care is [...] you do not run out of medications. [facility] does not accept [employer] or [employer] Medical assistance insurance. RATION WORKROOM SUPERVISOR documented in this encounter Progress Notes Edgar Alfredo MD - 04/24/2017 4:15 PM CST SUBJECTIVE: Stephani King is a 35 year old female who presents to clinic today for the following health issues: OPIOID USE DISORDER - SUBOXONE FOLLOW UP: CURRENT DOSE: 10 MG DAILY HERE WITH FATHER OF HER BABY AND HER BABY INFANT BORN IN December WAS 29 WEEKS GESTATION; [...] been going to recovery meetings:not at all. [place] Board of Pharmacy Data Base Reviewed: [...] So Luciano MD; Location: [facility] OR ??? DEPARTMENT HELPER SURGERY ??? ORTHOPEDIC SURGERY ??? THORACIC SURGERY [...] Panel 13 Result Value Ref Range Cannabinoids (43-ooc-2-ttexzic-6-VLD) Not Detected NDET^Not Detected ng/mL Phencyclidine (Phencyclidine) [...] ng/mL 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 FOR SNF USE OF HIGH RISK MEDICATION High Risk [...] visit in 2 MONTHS Edgar Alfredo MD [facility] documented in this encounter [...] kg). Medication Reconciliation: complete Sabina Mckay CMA RATION WORKROOM SUPERVISOR documented in this encounter Plan of Treatment Upcoming Encounters Date Type Specialty Care Team Description 11/29/2021 Office Visit Wound Care Luis Camara DPM [address] [place], [place] [address] (Wo rk) 01/21/2022 Office Visit Gastroenterology Juanis Levi [address] [place] [phone] Luis Fernando Miles MD [address] [address] documented as of this encounter Procedures Procedure Name Priority Date/Time Associated Diagnosis Comme nts URINE DRUGS OF Routine 04/24/2017 5:16 PM Uncomplicated opioid Results for this ABUSE SCREEN PANEL ALTERATION WORKROOM SUPERVISOR dependence (H) procedu re are in 13 the results section. documented in this encounter Results (ABNORMAL) Urine Drugs of Abuse Screen Panel 13 (04/24/2017 5:16 PM ALTERATION WORKROOM SUPERVISOR) [facility] Method Time Signature Cannabinoids Not Detected NDET^Not 04/24/2017 [facility] (16-pyc-3-carbox Detected 6:02 PM ALTERATION WORKROOM SUPERVISOR y-9-THC) ng/mL Comment: Cutoff for a negative cannabino id is 50 ng/mL or less. Phencyclidine Not Detected NDET^Not Detected 04/24/2017 6:02 PM LAB (Phencyclidine) ng/mL ALTERATION WORKROOM SUPERVISOR Comment: Cutoff for a negative PCP is 25 ng/mL or less. Cocaine (Benzoylecgonine) Not Detected NDET^Not Detected 0 04/24/2017 6:02 PM [facility] ng/mL ALTERATION WORKROOM SUPERVISOR Comment: Cutoff for a negative cocaine i s 150 ng/ml or less. Methamphetamine Not Detected NDET^Not 04/24/2017 6:02 PM [facility] (d-Methamphetamine) Detected ng/mL ALTERATION WORKROOM SUPERVISOR Comment: Cutoff for a negative methamphe tamine is 500 ng/ml or less. Opiates (Morphine) Not Detected NDET^Not Detected 04/25/19 18 6:02 PM ALTERATION WORKROOM SUPERVISOR [facility] ng/mL Comment: Cutoff for a negative opiate is 100 ng/ml or less. Amphetamine Not Detected NDET^Not Detected 04/24/2017 6:02 P M LAB (d-Amphetamine) ng/mL ALTERATION WORKROOM SUPERVISOR Comment: Cutoff for a negative amphetami ne is 500 ng/mL or less. Benzodiazepines Not Detected NDET^Not Detected 04/24/2017 6: 02 PM LAB (Nordiazepam) ng/mL ALTERATION WORKROOM SUPERVISOR Comment: Cutoff for a negative benzodiaz epine is 150 ng/ml or less. Tricyclic Antidepressants Not Detected NDET^Not Detected 0 04/24/2017 6:02 PM LAB (Desipramine) ng/mL ALTERATION WORKROOM SUPERVISOR Comment: Cutoff for a negative tricyclic antidepressant is 300 ng/ml or less. Methadone (Methadone) Not Detected NDET^Not Detected 018 6:02 PM [facility] ng/mL ALTERATION WORKROOM SUPERVISOR Comment: Cutoff for a negative methadone is 200 ng/ml or less. Barbiturates Not Detected NDET^Not Detected 04/24/2017 6:02 PM [facility] (Butalbital) ng/mL ALTERATION WORKROOM SUPERVISOR Comment: Cutoff for a negative barbituat e is 200 ng/ml or less. Oxycodone (Oxycodone) Not Detected NDET^Not Detected 018 6:02 PM [facility] ng/mL ALTERATION WORKROOM SUPERVISOR Comment: Cutoff for a negative Oxycodone is 100 ng/mL or less. Propoxyphene Not Detected NDET^Not Detected 04/24/2017 6:02 PM [facility] (Norpropoxyphene) ng/mL ALTERATION WORKROOM SUPERVISOR Comment: Cutoff for a negative propoxyph tina is 300 ng/ml or less Buprenorphine Detected, NDET^Not 04/24/2017 6:02 PM [facility] (Buprenorphine) Abnormal Result Detected ng/mL ALTERATION WORKROOM SUPERVISOR (A) Comment: Cutoff for a positive buprenorphine is g reater than 10 ng/ml. This is an unconfirmed screening result to be used for medical purposes only. Order [id number] for confirmation or indivi dual confirmation tests to [employer]. Specimen Anatomical Collection Method Collection Time Receive d Time (Source) Location / / Volume Laterality Urine specimen 04/24/2017 5:16 PM 018 5:17 (specimen) ALTERATION WORKROOM SUPERVISOR PM ALTERATION WORKROOM SUPERVISOR Edgar Alfredo MD LAB - URINE ORDERABLES Performing Organization Address City/State/[facility] [place] [address] [facility] [address] [facility] documented in this encounter Visit Diagnoses Diagnosis Uncomplicated opioid dependence (H) Opioid type dependence, unspecified documented in this encounter Care Teams Supervisor Ovens Relationship Specialty Start Date End Date Luis Fernando Magana PCP - General Family Practice 12/07/16 01/19/[address] [address] documented as of this encounter
--- OUTSIDE RECORDS SUMMARY | 2021-11-28 13:45 | XMS_ITS | Encounter Summary ---
:1980 Author Organization [place] Address [address] [place] [address] Care Team Providers Name Role Phone Luis [...] at Date Recorded Female 01/14/2020 10:57 AM POTATO PANCAKE FRIER documented as of this encounter Miscellaneous Notes Note - Marycarmen Mohamud RN - 01/20/2017 2:10 PM CST This note was copied from a baby's chart. Phone call made to [phone] in attempt to reach mother Stephani regarding breast milk and breast feeding. There was a voicemail. I left a message for the mother to call me regarding an update. No patient information revealed, only to contact myself at the NICU phone number. It appears that no breast milk has been received from home. Donor milk will end when baby reaches 34 wks. TO PANCAKE FRIER documented in this encounter Plan of Treatment Upcoming Encounters Date Type Specialty Care Team Description 11/29/2021 Office Visit Wound Care Luis Camara, [place] [address] [place] [address] (Wo rk) 01/21/2022 Office Visit Gastroenterology Juanis Levi [address] [place] [phone] Luis Fernando Miles MD 516 [facility] [address] [place] [address] documented as of this encounter Visit Diagnoses Not on filedocumented in this encounter Care Teams Stave Jointer Relationship Specialty Start Date End Date Luis Fernando Magana PCP - General Family Practice 12/07/16 01/19/[address] [address] documented as of this encounter
--- OUTSIDE RECORDS SUMMARY | 2021-11-28 13:45 | XMS_ITS | Encounter Summary ---
:1980 Author Organization [place] Address [address] [facility] [address] Care Team Providers Name Role Phone Luis Fernando Magana Primary Care Provider Reason for Visit Reason Onset Date Comments Medication Request 07/01/2017 Subutex bridge Encounter Details Date Type Department Care Team Description 07/01/2017 Telephone [facility] Edgar Alfredo, [facility] ication Request Clinic Ashly VÁSQUEZ (Subutex bridge ) [address] [place] [address] [place] [phone] (Wo rk) Social History Tobacco Use Types Packs/Day Years Used Date Smoking Tobacco: Every Day Cigarettes 0.1 10 Smokeless Tobacco: Never Comments: 5 cigarettes a day Alcohol Use Standard Drinks/Week Comments Yes 0 (1 standard drink = 0.6 oz pure Stoppe d after found out alcohol) Sex Assigned at Date Recorded Female 01/14/2020 10:57 AM CARE NURSE RN documented as of this encounter Miscellaneous Notes Telephone Encounter - Ludmila Vega RN - 07/02/2017 10:51 AM CDT Called into patients pharmacy. Ludmila Vega RN on 07/02/2017 at 10:52 AM Telephone Encounter - Edgar Alfredo MD - 07/02/2017 10:44 AM CDT Refill [...] negative for all substances, positive for BUP RESIDENT ATHLETIC TRAINER reviewed and summarized below: 05.27.2017 - Subutex - 112/28 days (refill from script on 04.24.2017) Ludmila Vega RN on 07/01/2017 at 3:47 PM Telephone Encounter - Mark Roldan - 07/01/2017 3:29 PM CDT Reason for Call: Medication or medication refill: Do you use a [facility]? Name of the pharmacy and phone number for the current request: [facility] [place] tel: [phone] Name of the medication requested: Subutex 2 [...] be reached at: Home number on file [phone] (home) Best Time: Anytime Call taken on 07/01/2017 at 3:29 PM by Mark Roldan documented in this encounter Plan of Treatment Upcoming Encounters Date Type Specialty Care Team Description 11/29/2021 Office Visit Wound Care Luis Camara DPM [address] [place], [place] [address] (Wo rk) 01/21/2022 Office Visit Gastroenterology Juanis Levi [address] [place] [phone] Luis Fernando Miles MD [address] [facility] [address] [place], [place] [address] documented as of this encounter Visit Diagnoses Diagnosis Uncomplicated opioid dependence (H) Opioid type dependence, unspecified documented in this encounter Care Teams Felling Bucking Supervisor Relationship Specialty Start Date End Date Luis Fernando Magana PCP - General Family Practice 12/07/16 01/19/[address] [address] documented as of this encounter
--- OUTSIDE RECORDS SUMMARY | 2021-11-28 13:45 | XMS_ITS | Encounter Summary ---
:1980 Author Organization [place] Address [address] [facility] [place] [address] Care Team Providers Name Role Phone [facility] Primary Care Provide r Encounter Details [...] at Date Recorded Female 01/14/2020 10:57 AM BAG HANGER documented as of this encounter Plan of Treatment Upcoming Encounters Date Type Specialty Care Team Description 11/29/2021 Office Visit Wound Care Luis Camara DPM [address] [place], [place] [phone] (Wo rk) 01/21/2022 Office Visit Gastroenterology Juanis Levi [address] [place] [address] Luis Fernando Miles MD [address] [facility] [address] [place], [place] [address] documented as of this encounter Visit Diagnoses Not on filedocumented in this encounter Care Teams Process Planner Relationship Specialty Start Date End Date Clinic, [facility] PCP - General 01/20/18 06/28/21 [facility] [place] [address] documented as of this encounter
--- OUTSIDE RECORDS SUMMARY | 2021-11-28 13:45 | XMS_ITS | Encounter Summary ---
:1980 Author Organization [place] Address [address] [facility] [place] [address] Care Team Providers Name Role Phone Luis Fernando Magana Primary Care Provider Reason for Visit Reason Comments RECHECK Encounter Details Date Type Department Care Team Description 01/16/2017 Office Visit [facility] Mecca Cyr S/P e mergency hysterectomy (Primary Dx); [facility] MD Christopher Slow transit constipation; [place] [address] RONNIE Wound infection [address] [employer] [place] [place] [facility] [address] [address] [place], [place] (Work) [address] [phone] Social History Tobacco Use Types Packs/Day Years Used Date Smoking Tobacco: Every Day Cigarettes 0.1 10 Smokeless Tobacco: Never Comments: 5 cigarettes a day Alcohol Use Standard Drinks/Week Comments Yes 0 (1 standard drink = 0.6 oz pure Stoppe d after found out alcohol) Sex Assigned at Date Recorded Female 01/14/2020 10:57 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
--- OUTSIDE RECORDS SUMMARY | 2021-11-28 13:45 | XMS_ITS | Encounter Summary ---
:1980 Author Organization [place] Address [facility] [place] [address] Care Team Providers Name Role Phone Clinic, [facility] Primary Care Provide r Reason for Visit Reason Comments Chest Pain Encounter Details Date Type Department Care Team Description 01/20/2018 - Emergency [facility] Marycarmen Banks Alcohol withdrawal syndrome without complication (H); 01/21/2018 [facility] Emergency MD Angelina Anxiety Dept [facility] [address] [place] [address] [facility] [address] [place], [place] [phone] (Wo rk) Social History Tobacco Use Types Packs/Day Years Used Date Smoking Tobacco: Every Day Cigarettes 0.1 10 Smokeless Tobacco: Never Comments: 5 cigarettes a day Alcohol Use Standard Drinks/Week Comments Yes 0 (1 standard drink = 0.6 oz pure alcoho l) binge drinks Sex Assigned at Date Recorded Female 01/14/2020 10:57 AM 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 documented as of this encounter Last Filed Vital Signs Vital Sign Reading Time Taken Comments Blood Pressure 135/80 01/21/2018 12:30 AM SALES 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 Pulse 84 01/20/2018 10:52 PM SALES 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 Temperature 36.8 ??C (98.2 ??F) 01/20/2018 10:23 PM SALES 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 Respiratory Rate 17 01/21/2018 12:30 AM SALES 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 Oxygen Saturation 98% 01/21/2018 12:30 AM SALES 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 Inhaled Oxygen Concentration - - Weight - [...] CST IV cannula removed from RAC intact S 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 Shukri Fuentes RN - 01/20/2018 10:24 PM CST Pt arrives with chills x2 days and palpitations for a couple months. Pt states she drinks 1 L every 2 days, today only 3 mixed drinks. No headache, +nausea/ vomiting. ABCs intact. Marycarmen Jaramillo MD - 01/20/2018 10:08 PM CST History [...] Palpations Time: 2218 Vent. Rate 98 bpm. VA interval 150. QRS duration 86. QT/QTc 376/480. [...] AST: 266 (H), o/w WNL (Creatinine: 0.76) 2235 Troponin: <0.015 D dimer: 0.4 Alcohol ethyl: <0.01 Magnesium: 2.1 Interventions: 2247 Zofran, 4 mg, IV injection Ativan, 1 mg, IV injection 2303 NS 1L IV 233 Thera-vit-M, 1 tablet, PO 2335 Thiamine, 100 [...] obtained in the ED, see results above. (3) I rechecked the patient and discussed the [...] needed for nausea or vomiting Scribe Disclosure: I, Nora Correa, am serving as a scribe on 01/20/2018 at 10:32 PM to personally document services performed by Marycarmen Banks MD based on my observations and the provider's statements to me. Nora Correa 01/20/2018 [facility] EMERGENCY DEPARTMENT Marycarmen Banks MD 01/21/18 0058 S 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 documented in this encounter Plan of Treatment Upcoming Encounters Date Type Specialty Care Team Description 11/29/2021 Office Visit Wound Care Luis Camara DPM [address] [place] [address] (Wo rk) 01/21/2022 Office Visit Gastroenterology Juanis Levi [address] [place] [address] Luis Fernando Miles MD [address] [phone] documented as of this encounter Procedures Procedure Name Priority Date/Time Associated Comments Diagnosis XR CHEST 2 VIEWS STAT 01/20/2018 10:58 Results for this PM SALES 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 procedure are i n the results section. CBC WITH PLATELETS & STAT 01/20/2018 10:36 Res ults for this DIFFERENTIAL PM SALES 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 procedure are i n the results section. TROPONIN I STAT 01/20/2018 10:36 Results for this PM SALES 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 procedure are i n the results section. MAGNESIUM Routine 01/20/2018 10:36 Results for this PM SALES 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 procedure are i n the results section. D DIMER QUANTITATIVE Routine 01/20/2018 10:36 Res ults for this PM SALES 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 procedure are i n the results section. COMPREHENSIVE STAT 01/20/2018 10:36 Results fo r this METABOLIC PANEL PM SALES 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 procedure ar e in the results section. ETHYL ALCOHOL LEVEL Routine 01/20/2018 10:36 Resu lts for this PM SALES 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 procedure are i n the results section. EKG 12-LEAD, TRACING STAT 01/20/2018 10:18 Res ults for this ONLY PM SALES 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 procedure are i n the results section. documented in this encounter Results Chest XR, PA & LAT (01/20/2018 10:58 PM SALES 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) Anatomical Region Laterality Modality Chest Digital Radiography Specimen (Source) Anatomical Location Collection Method / Collectio n Time Received Time / Laterality Volume Impressions 01/20/2018 11:03 PM SALES 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 IMPRESSION: No radiographic evidence of acute chest abnormality. GIOVANNI RHODES MD Narrative 01/20/2018 11:03 PM SALES 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 CHEST TWO VIEWS 01/20/2018 10:58 PM HISTORY: [...] IMAGING ORDER JEFFERY Magnesium (01/20/2018 10:36 PM SALES 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) athologist Signature Magnesium 2.1 1.6 - 2.3 01/20/2018 [facility] mg/dL 11:02 PM [facility] Specimen Anatomical Collection Method Collection Time Receive d Time (Source) Location / / Volume Laterality 01/20/2018 10:36 01/20/2018 PM SALES 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 10:37 PM SALES 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 Marycarmen Banks MD LAB - BLOOD ORDERABLES Performing Organization Address City/[facility] e [facility] [address] [place], [place] [address] [phone] [phone] Alcohol ethyl (01/20/2018 10:36 PM SALES 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) athologist Signature Ethanol g/dL <0.01 <0.01 g/dL 01/20/2018 [place] 11:02 PM [facility] Specimen Anatomical Collection Method Collection Time Receive d Time (Source) Location / / Volume Laterality 01/20/2018 10:36 01/20/2018 PM SALES 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 10:37 PM SALES 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 Marycarmen Banks MD LAB - BLOOD ORDERABLES Performing Organization Address City/[facility]/[place] [address] [address] [place], [place] [address] [place] [address] [phone] D dimer quantitative (01/20/2018 10:36 PM [facility]) athologist Signature D Dimer 0.4 0.0 - 0.50 01/20/2018 [facility] ug/ml FEU 10:56 PM [facility] Comment: This D-dimer assay is intended for use i n conjunction with a clinical pretest probability assessment model to exclude pulmonary embolism (PE) and deep venous thrombosis (DVT) in outpatients s uspected of PE or DVT. The cut-off value is 0.5 ug/mL FEU. Specimen Anatomical Collection Method Collection Time Receive d Time (Source) Location / / Volume Laterality 01/20/2018 10:36 01/20/2018 PM SALES 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 10:37 PM SALES 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 Marycarmen Banks MD LAB - BLOOD ORDERABLES Performing Organization Address City/[facility]/ZIP [facility] Phon e Number Camryn [facility] [address] [place], [place] [address] [facility] [address] [place], [place] [address], [facility] [phone] Troponin I (01/20/2018 10:36 PM SALES 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) athologist [facility] Troponin I ES <0.015 0.000 - 01/20/2018 [place] 0.045 ug/L 11:02 PM [facility] Comment: The 99th percentile for upper reference range is 0.045 ug/L. ??Troponin values in the range of 0.045 - 0.120 ug/L may b e associated with risks of adverse clinical events. Specimen Anatomical Collection Method Collection Time Receive d Time (Source) Location / / Volume Laterality Blood specimen 01/20/2018 10:36 8 (specimen) PM SALES 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 10:37 PM SALES 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 Marycarmen Banks MD LAB - BLOOD ORDERABLES Performing Organization Address [facility]/ZIP [facility] Phon e Number Camryn [facility] [address] [place], [place] [address] [facility] [address] [place], [place] [address], [facility] [phone] (ABNORMAL) Comprehensive metabolic panel (01/20/2018 10:36 PM SALES 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) [facility] Sodium 136 133 - 144 01/20/2018 [place] mmol/L 11:02 PM [facility] Potassium 3.5 3.4 - 5.3 01/20/2018 [place] mmol/L 11:02 PM [facility] Chloride 102 94 - 109 01/20/2018 [place] mmol/L 11:02 PM [facility] Carbon Dioxide 28 20 - 32 01/20/2018 [place] mmol/L 11:02 PM [facility] Anion Gap 6 3 - 14 01/20/2018 [place] mmol/L 11:02 PM [facility] Glucose 103 (H) 70 - 99 01/20/2018 [place] mg/dL 11:02 PM [facility] Urea Nitrogen 7 7 - 30 01/20/2018 [place] mg/dL 11:02 PM [facility] Creatinine 0.76 0.52 - 01/20/2018 [place] 1.04 mg/dL 11:02 PM [facility] GFR Estimate 86 >60 01/20/2018 [place] mL/min/1.7 11:[address] Comment: Non GFR Calc GFR Estimate If >90 >60 mL/min/1.7m2 01/20/2018 11:02 PM [facility] Comment: GFR Calc Calcium 8.8 8.5 - 10.1 01/20/2018 11:02 PM [facility] mg/dL [facility] Bilirubin Total 1.5 (H) 0.2 - 1.3 mg/dL 01/20/2018 11:02 P M [facility] Albumin 3.9 3.4 - 5.0 g/dL 01/20/2018 11:02 PM [facility] Protein Total 8.3 6.8 - 8.8 g/dL 01/20/2018 11:02 PM F [facility] Alkaline Phosphatase 129 40 - 150 U/L 01/20/2018 11:02 PM [facility] ALT 202 (H) 0 - 50 U/L 01/20/2018 11:02 PM [facility] AST 266 (H) 0 - 45 U/L 01/20/2018 11:02 PM [facility] Specimen Anatomical Collection Method Collection Time Receive d Time (Source) Location / / Volume Laterality Blood specimen 01/20/2018 10:36 8 (specimen) PM SALES 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 10:37 PM SALES 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 Marycarmen Banks MD LAB - BLOOD ORDERABLES Performing Organization Address City/State/ZIP Code Phon e Number M [facility] [address] [place], [place] [address] [facility] [address] [place], [place] [address] [phone] (ABNORMAL) CBC with platelets differential (01/20/2018 10:36 PM SALES 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) [facility] gist Method Time Signature WBC 5.0 4.0 - 01/20/2018 [facility] 11.0 10:43 PM [facility] 10e9/L [facility] RBC Count 4.58 3.8 - 5.2 01/20/2018 [facility] 10e12/L 10:[address] [facility] Hemoglobin 15.3 11.7 - 01/20/2018 [facility] 15.7 g/dL 10:[address] [facility] Hematocrit 44.9 35.0 - 01/20/2018 [facility] 47.0 % 10:[address] [facility] MCV 98 78 - 100 01/20/2018 [facility] fl 10:43 [facility] MCH 33.4 (H) 26.5 - 01/20/2018 [facility] 33.0 pg 10:43 [facility] MCHC 34.1 31.5 - 01/20/2018 [facility] 36.5 g/dL 10:43 [facility] RDW 11.8 10.0 - 01/20/2018 [facility] 15.0 % 10:[address] [facility] Platelet Count 170 150 - 450 01/20/2018 [facility] 10e9/L 10:[address] [facility] Diff Method Automated 01/20/2018 [facility] Method 10:[address] [facility] % Neutrophils 61.7 % 01/20/2018 [facility] 10:[address] [facility] % Lymphocytes 28.4 % 01/20/2018 [facility] 10:43 [facility] % Monocytes 7.1 % 01/20/2018 [facility] 10:43 [facility] % Eosinophils 2.2 % 01/20/2018 [facility] 10:[address] [facility] % Basophils 0.4 % 01/20/2018 [facility] 10:43 [facility] % Immature 0.2 % 01/20/2018 [facility] Granulocytes 10:43 [facility] Nucleated RBCs 0 0 /100 01/20/2018 [facility] 10:[address] [facility] Absolute 3.1 1.6 - 8.3 01/20/2018 [facility] Neutrophil 10e9/L 10:[address] [facility] Absolute 1.4 0.8 - 5.3 01/20/2018 [facility] Lymphocytes 10e9/L 10:[address] [facility] Absolute 0.4 0.0 - 1.3 01/20/2018 [place] Monocytes 10e9/L 10:[address] [facility] Absolute 0.1 0.0 - 0.7 01/20/2018 [place] Eosinophils 10e9/L 10:[address] [facility] Absolute 0.0 0.0 - 0.2 01/20/2018 [place] Basophils 10e9/L 10:[address] [facility] Abs Immature 0.0 0 - 0.4 01/20/2018 [place] Granulocytes 10e9/L 10:[address] [facility] Absolute 0.0 01/20/2018 [place] Nucleated RBC 10:[address] [facility] Specimen Anatomical Collection Method Collection Time Receive d Time (Source) Location / / Volume Laterality Blood specimen 01/20/2018 10:36 8 (specimen) PM SALES 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 10:37 PM SALES 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 Marycarmen Banks MD LAB - BLOOD ORDERABLES Performing Organization Address City/[facility]/ZIP Code Phon e Number [place] [address] [address] [place] [address] [place] [address] [phone] EKG 12-lead, tracing only (01/20/2018 10:18 PM SALES 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) [facility] gist Method Time Signature Interpretation ECG Click View RADIOLOGY Image link RESULTS to view waveform and result Specimen (Source) Anatomical Collection Method Collection Time Re ceived Time Location / / Volume Laterality 01/20/2018 10:18 PM SALES 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 Marycarmen Banks MD ECG ORDERABLES Performing Organization Address City/State/ZIP [facility] Phon e Number RADIOLOGY RESULTS documented in [...] 1,000 mLs 1000 mL/hr Intravenous, 1,000 mL, SALES 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 ONCE, at 1,000 mL/hr, Administer over 1 Hours, On Fri01/20/18 at 2256, For 1 dose diphenhydrAMINE (BENADRYL) injection 25 mg Given 01/20/2018 11:36 PM SALES 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 25 mg 25 mg, Intravenous, ONCE, On 01/20/18 at 2330, For 1 dose, For ordered IV doses 1-50 mg, give IV Push undiluted. Give each 25mg over a minimum of 1 minute. Extend in non-emergency LORazepam (ATIVAN) injection 1 mg Given 01/20/2018 10:48 PM SALES 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 1 mg 1 mg, Intravenous, ONCE, On 01/20/18 at 2242, For 1 dose, For IV PUSH: Dilute with equal volume of NS. For ordered IV doses 0.1-4 mg give IV Push. Administer each 2mg over 1-5 minutes. multivitamin w/minerals (THERA-VIT-M) Given 01/20/2018 11:34 PM SALES 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 1 tablet tablet 1 tablet 1 tablet, Oral, ONCE, On 01/20/18 at 2330, For 1 dose ondansetron (ZOFRAN) injection 4 mg Given 01/20/2018 10:48 PM SALES 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 4 mg 4 mg, Intravenous, ONCE, Administer over 2-5 Minutes, On 01/20/18 at 2242, For 1 dose, Irritant. For ordered IV doses 0.1-4 mg, give IV Push undiluted over 2-5 minutes. prochlorperazine (COMPAZINE) injection 5 mg Given 01/20/2018 11:35 PM SALES 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 5 mg 5 mg, Intravenous, ONCE, Administer over 1-2 Minutes, On 01/20/18 at 2330, For 1 dose, For ordered IV doses 0.1-10 mg, give IV Push undiluted. Each 5mg over 1 minute. vitamin B1 (THIAMINE) tablet 100 mg Given 01/20/2018 11:35 PM SALES 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 100 mg 100 mg, Oral, ONCE, On e 01/20/18 at 2330, For 1 dose documented in this encounter Active and Recently Administered Medications Times are shown in SALES 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. Scheduled Medication Order 01/19/2018 01/20/2018 01/21/2018 0.9% sodium chloride BOLUS (COMPLETED) 2 303 (New Bag - Provider: Anali Castro RN) 0021 (Stopped - Provider: Emely Chicas RN) Intravenous, 1,000 mL, ONCE, at 1,000 mL /hr, Administer over 1 Hours, On Fri01/20/18 at 2256, For 1 dose diphenhydrAMINE (BENADRYL) injection 25 mg (COMPLETED) 2335 (Given - Provider: Anali Castro RN) 25 mg, Intravenous, ONCE, On e 01/20/18 at 2330, For 1 dose, For ordered IV doses 1-50 mg, give IV Push undiluted. Give each 25mg over a minimum of 1 minute. Extend in non-emergency LORazepam (ATIVAN) injection 1 mg (COMPLETED) 2247 (Given - Provider: Anali Castro, GENARO) 1 mg, Intravenous, ONCE, e 01/20/18 at [...] 4 mg (COMPLETED) 2247 (Given - Provider: Anali Castro RN) 4 mg, Intravenous, ONCE, Administer over 2-5 Minutes, e 01/20/18 at 2242, For 1 dose, Irritant. For ordered IV doses 0.1-4 mg, give IV Push undiluted over 2-5 minutes. prochlorperazine (COMPAZINE) injection 5 mg (COMPLETED) 2334 (Given - Provider: Anali Castro, GENARO) 5 mg, Intravenous, ONCE, Administer over 1-2 Minutes, On Fri01/20/18 at 2330, For 1 dose, For ordered IV doses 0.1-10 mg, give IV Push undiluted. Each 5mg over 1 minute. vitamin B1 (THIAMINE) tablet 100 mg (COMPLETED) 2334 (Given - Provider: Anali Castro, RN) 100 mg, Oral, ONCE, On e 01/20/18 at 2330, For 1 dose documented in this encounter Care Teams Public Policy Coordinator Relationship Specialty Start Date End Date Clinic, [facility] PCP - General 01/20/18 06/28/21 [address] [place] [address] documented as of this encounter
--- OUTSIDE RECORDS SUMMARY | 2021-11-28 13:45 | XMS_ITS | Encounter Summary ---
:1980 Author Organization [place] Address Replaced by [facility] [place] [address] Care Team Providers Name Role Phone Clinic, [facility] Primary Care Provide r Reason for Visit Reason Comments Alcohol Problem Palpitations Encounter Details Date Type Department Care Team Description 01/31/2018 - Emergency [facility] Shay Martinez MD Alcoholic intoxication without complicat ion (H); 02/01/2018 [facility] Emergency EMERGENCY Uncomplicat ed opioid dependence (H); Dept PHYSICIANS PA S/P emergency hysterectomy; [address] Slow transit constipation; [place], [place] Major depre ssive disorder, recurrent episode, moderate (H) [id number] [phone] (Wo rk) Social History Tobacco Use Types Packs/Day Years Used Date Smoking Tobacco: Every Day Cigarettes 0.1 10 Smokeless Tobacco: Never Comments: 5 cigarettes a day Alcohol Use Standard Drinks/Week Comments Yes 0 (1 standard drink = 0.6 oz pure alcoho l) binge drinks Sex Assigned at Date Recorded Female 01/14/2020 10:57 AM PAID SEARCH ANALYST documented as of this encounter Last Filed Vital Signs Vital Sign Reading Time Taken Comments Blood Pressure 145/72 01/31/2018 8:16 PM PAID SEARCH ANALYST Pulse - - Temperature 36.1 ??C (97 ??F) 01/31/2018 8:16 PM PAID SEARCH ANALYST Respiratory Rate 18 01/31/2018 8:16 PM PAID SEARCH ANALYST Oxygen Saturation 97% 01/31/2018 8:16 PM PAID SEARCH ANALYST Inhaled Oxygen Concentration - - Weight - - Height - - Body Mass Index - - documented in this encounter Medications at Time of Discharge Medication Sig Dispensed Refills Start Date End Date ACETAMINOPHEN PO 0 07/05/19 buprenorphine (SUBUTEX) 2 Place 1 tablet (2 [...] depends on the stress level. 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 Requesting to go to detox Denies suicidal or homicidal ideation SEARCH ANALYST Shay Martinez MD - 01/31/2018 8:12 PM CST History Chief Complaint: Alcohol Intoxication HPI Stephani King is a 37 year [...] Breast surgery section section, immediate hysterectomy, combined SENIOR BACK END JAVA DEVELOPER surgery Orthopedic surgery Thoracic surgery Family History: [...] Department Course ECG (20:28:51): Rate 89 bpm. UT interval 170. QRS duration 94. QT/QTc 374/455. [...] and blood drawn. EKG obtained, results above. 2240: I rechecked the patient. Explained findings to the patient and her father. Findings and plan explained to the Patient and her father. Patient will be transferred to [facility] via EMS. Discussed the case with the [...] without complication (H) F10.920 Disposition: Transferred to [facility] via EMS. Discharge Medications: Modified buprenorphine 2 MG Subl sublingual tablet Commonly known as: SUBUTEX 2 mg, Sublingual, 2 TIMES DAILY What changed: ?? how much to take ?? how to take this ?? when to take this ?? additional instructions Ezra Chan 01/31/2018 [facility] EMERGENCY DEPARTMENT I, Ezra Chan, am serving as a scribe at 9:09 PM on 01/31/2018 to document services personally performed by Shay Martinez MD based on my observations and the provider's statements to me. Shay Martinez MD 01/31/18 6378 SEARCH ANALYST documented in this encounter Plan of Treatment Upcoming Encounters Date Type Specialty Care Team Description 11/29/2021 Office Visit Wound Care Luis Camara DPM [address] [place] [address] (Wo rk) 01/21/2022 Office Visit Gastroenterology Juanis Levi [address] [place] [address] Luis Fernando Miles MD [address] [address] documented as of this encounter Procedures Procedure Name Priority Date/Time Associated Comments Diagnosis CBC WITH PLATELETS & STAT 01/31/2018 9:13 PM R esults for this DIFFERENTIAL PAID SEARCH ANALYST procedure are i n the results section. COMPREHENSIVE STAT 01/31/2018 9:13 PM Results for this METABOLIC PANEL PAID SEARCH ANALYST procedure ar e in the results section. ETHYL ALCOHOL LEVEL STAT 01/31/2018 9:13 PM Re sults for this PAID SEARCH ANALYST procedure are i n the results section. EKG 12-LEAD, TRACING STAT 01/31/2018 8:58 PM R esults for this ONLY PAID SEARCH ANALYST procedure are i n the results section. documented in this encounter Results (ABNORMAL) Comprehensive metabolic panel (01/31/2018 9:13 PM PAID SEARCH ANALYST) P athologist Signature Sodium 141 133 - 144 01/31/2018 [facility] mmol/L 9:45 PM [facility] Potassium 3.5 3.4 - 5.3 01/31/2018 [facility] mmol/L 9:45 PM [facility] Chloride 107 94 - 109 01/31/2018 [facility] mmol/L 9:45 PM [facility] Carbon Dioxide 28 20 - 32 01/31/2018 [facility] mmol/L 9:45 PM [facility] Anion Gap 6 3 - 14 01/31/2018 [facility] mmol/L 9:45 PM [facility] Glucose 104 (H) 70 - 99 01/31/2018 [facility] mg/dL 9:45 PM [facility] Urea Nitrogen 10 7 - 30 01/31/2018 [facility] mg/dL 9:45 PM [facility] Creatinine 0.79 0.52 - 01/31/2018 [facility] 1.04 mg/dL 9:45 PM [facility] GFR Estimate 82 >60 01/31/2018 [facility] mL/min/1.7 9:[address] Comment: Non GFR Calc GFR Estimate If >90 >60 mL/min/1.7m2 01/31/2018 9:45 P M [facility] Comment: GFR Calc Calcium 8.5 8.5 - 10.1 01/31/2018 9:45 PM [facility] IDGES mg/dL [facility] Bilirubin Total 0.5 0.2 - 1.3 mg/dL 01/31/2018 9:45 PM [facility] Albumin 3.7 3.4 - 5.0 g/dL 01/31/2018 9:45 PM [facility] Protein Total 7.7 6.8 - 8.8 g/dL 01/31/2018 9:45 PM [facility] Alkaline Phosphatase 134 40 - 150 U/L 01/31/2018 9:45 PM [facility] ALT 205 (H) 0 - 50 U/L 01/31/2018 9:45 PM [facility] AST 271 (H) 0 - 45 U/L 01/31/2018 9:45 PM [facility] Specimen Anatomical Collection Method Collection Time Receive d Time (Source) Location / / Volume Laterality Blood specimen 01/31/2018 9:13 PM 018 9:14 (specimen) PAID SEARCH ANALYST PM PAID SEARCH ANALYST Shay Martinez MD LAB - BLOOD ORDERABLES Performing Organization Address City/State/ZIP Code Phon e Number [place] [address] [address] [place] [address] [facility] [address] [phone] (ABNORMAL) CBC with platelets differential (01/31/2018 9:13 PM [facility]) [facility] Method Time Signature WBC 4.4 4.0 - 01/31/2018 [facility] 11.0 9:19 PM [facility] 10e9/L [facility] RBC Count 4.08 3.8 - 5.2 01/31/2018 [facility] 10e12/L 9:19 PM [facility] Hemoglobin 13.7 11.7 - 01/31/2018 [facility] 15.7 g/dL 9:19 PM [facility] Hematocrit 40.8 35.0 - 01/31/2018 [facility] 47.0 % 9:19 PM [facility] MCV 100 78 - 100 01/31/2018 [facility] fl 9:19 PM [facility] MCH 33.6 (H) 26.5 - 01/31/2018 [facility] 33.0 pg 9:19 PM [facility] MCHC 33.6 31.5 - 01/31/2018 [facility] 36.5 g/dL 9:19 PM [facility] RDW 12.0 10.0 - 01/31/2018 [facility] 15.0 % 9:19 PM [facility] Platelet Count 151 150 - 450 01/31/2018 [facility] 10e9/L 9:19 PM [facility] Diff Method Automated 01/31/2018 [facility] Method 9:19 PM [facility] % Neutrophils 35.4 % 01/31/2018 [facility] 9:19 PM [facility] % Lymphocytes 51.7 % 01/31/2018 [facility] 9:19 PM [facility] % Monocytes 9.7 % 01/31/2018 [facility] 9:19 PM [facility] % Eosinophils 2.5 % 01/31/2018 [facility] 9:19 PM [facility] % Basophils 0.5 % 01/31/2018 [facility] 9:19 PM [facility] % Immature 0.2 % 01/31/2018 [facility] Granulocytes 9:19 PM [facility] Nucleated RBCs 0 0 /100 01/31/2018 [facility] 9:19 PM [facility] Absolute 1.5 (L) 1.6 - 8.3 01/31/2018 [facility] Neutrophil 10e9/L 9:19 PM [facility] Absolute 2.3 0.8 - 5.3 01/31/2018 [facility] Lymphocytes 10e9/L 9:19 PM [facility] Absolute 0.4 0.0 - 1.3 01/31/2018 [facility] Monocytes 10e9/L 9:19 PM [facility] Absolute 0.1 0.0 - 0.7 01/31/2018 [facility] Eosinophils 10e9/L 9:19 PM [facility] Absolute 0.0 0.0 - 0.2 01/31/2018 [facility] Basophils 10e9/L 9:19 PM [facility] Abs Immature 0.0 0 - 0.4 01/31/2018 [facility] Granulocytes 10e9/L 9:19 PM [facility] Absolute 0.0 01/31/2018 [facility] Nucleated RBC 9:19 PM [facility] Specimen Anatomical Collection Method Collection Time Receive d Time (Source) Location / / Volume Laterality Blood specimen 01/31/2018 9:13 PM 018 9:14 (specimen) PAID SEARCH ANALYST PM PAID SEARCH ANALYST Shay Martinez MD LAB - BLOOD ORDERABLES Performing Organization Address City/[facility]/ZIP [facility] Phon e Number [facility] [address] [place], [place] [address] [facility] [address] [place], [place] [address], [facility] [phone] (ABNORMAL) Alcohol ethyl (01/31/2018 9:13 PM PAID SEARCH ANALYST) P athologist Signature Ethanol g/dL 0.33 (HH) <0.01 g/dL 01/31/2018 [place] 9:48 PM [facility] Comment: Critical Value called to and read back Catarino SOSA (ASHTON) ON 01.31.18 AT 2142 BY AEF Specimen Anatomical Collection Method Collection Time Receive d Time (Source) Location / / Volume Laterality Blood specimen 01/31/2018 9:13 PM 018 9:14 (specimen) PAID SEARCH ANALYST PM PAID SEARCH ANALYST Shay Martinez MD LAB - BLOOD ORDERABLES Performing Organization Address City/State/ZIP Code Phon e Number [facility] [address] [place], [place] [address] [place] [address] [address] [place], [place] [address], [facility] [phone] EKG 12 lead (01/31/2018 8:58 PM PAID SEARCH ANALYST) [facility] Method Time Signature Interpretation ECG Click View RADIOLOGY Image link RESULTS to view waveform and result Specimen (Source) Anatomical Collection Method Collection Time Re ceived Time Location / / Volume Laterality 01/31/2018 8:58 PM PAID SEARCH ANALYST Mary Grace Molina MD ECG ORDERABLES Performing [...] chloride BOLUS New Bag 01/31/2018 9:13 PM PAID SEARCH ANALYST 1,000 mLs 1000 mL/hr Intravenous, 1,000 mL, ONCE, at 1,000 mL/hr, Administer over 1 Hours, On 01/31/18 at 2056, For 1 dose LORazepam (ATIVAN) tablet 0.5 mg Given 01/31/2018 10:30 PM PAID SEARCH ANALYST 0.5 mg 0.5 mg, Oral, ONCE, On 01/31/18 at 2219, For 1 dose sodium chloride 0.9% infusion at 125 mL/hr, Intravenous, CONTINUOUS, A dminister after the boluses., Starting on 01/31/18 at 2056, Until 02/01/18 at 0203 documented in this encounter Active and Recently Administered Medications Times are shown in PAID SEARCH ANALYST. Scheduled Medication Order 01/30/2018 01/31/2018 02/01/2018 0.9% [...] 0203 documented in this encounter Care Teams Bakery Clerk Relationship Specialty Start Date End Date Clinic, [facility] PCP - General 01/20/18 06/28/21 [facility] [place] [address] documented as of this encounter
--- OUTSIDE RECORDS SUMMARY | 2021-11-28 13:45 | XMS_ITS | Encounter Summary ---
:1980 Author Organization [place] Address [address] [facility] [address] Care Team Providers Name Role Phone Luis Fernando Magana Primary Care Provider Reason for Visit Reason Onset Date Comments Erroneous encounter-disregard 04/11/2017 Encounter Details Date Type Department Care Team Description 04/10/2017 Office Visit [facility] Edgar Alfredo ERRONEOUS Clinic Ashly Gauthier MD ENCOUNTER--DISREGARD [address] [place] (Primary Dx) [address] [place] [address] Social History Tobacco Use Types Packs/Day Years Used Date Smoking Tobacco: Every Day Cigarettes 0.1 10 Smokeless Tobacco: Never Comments: 5 cigarettes a day Alcohol Use Standard Drinks/Week Comments Yes 0 (1 standard drink = 0.6 oz pure Stoppe d after found out alcohol) Sex Assigned at Date Recorded Female 01/14/2020 10:57 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 Please disregard. CIATE PROFESSOR OF LIBRARY SCIENCE documented in this encounter Plan of Treatment Upcoming Encounters Date Type Specialty Care Team Description 11/29/2021 Office Visit Wound Care Luis Camara, [place] [address] [place] [address] (Wo rk) 01/21/2022 Office Visit Gastroenterology Juanis Levi [address] [place] [address] Luis Fernando Miles MD 516 [facility] [address] [place], [place] [id number] documented as of this encounter Visit Diagnoses Diagnosis ERRONEOUS ENCOUNTER--DISREGARD - Primary documented in this encounter Care Teams Bladder Tier Relationship Specialty Start Date End Date Luis Fernando Magana PCP - General Family Practice 12/07/16 01/19/[address] [address] documented as of this encounter
--- OUTSIDE RECORDS SUMMARY | 2021-11-28 13:45 | XMS_ITS | Encounter Summary ---
:1980 Author Organization [place] Address [address] [facility] [place] [address] Care Team Providers Name Role Phone Luis Fernando Magana Primary Care Provider Reason for Visit Reason Onset Date Comments Refill Request 03/05/2017 buprenorphine (SUBUT EX) 2 MG SUBL Encounter Details Date Type Department Care Team Description 03/05/[address] [facility] Edgar Alfredo, Ref ill Request Clinic Ashly VÁSQUEZ (buprenorphine (SUBUTEX) [address] [place] 2 MG SUBL) [address] [place] [phone] (Wo rk) Social History Tobacco Use Types Packs/Day Years Used Date Smoking Tobacco: Every Day Cigarettes 0.1 10 Smokeless Tobacco: Never Comments: 5 cigarettes a day Alcohol Use Standard Drinks/Week Comments Yes 0 (1 standard drink = 0.6 oz pure Stoppe d after found out alcohol) Sex Assigned at Date Recorded Female 01/14/2020 10:57 AM CLIENT ACCOUNT ASSISTANT documented as of this encounter Miscellaneous Notes Telephone Encounter - Edgar Alfredo MD - 03/06/2017 2:21 PM CST Spoke to patient Bridge called in NT ACCOUNT ASSISTANT Telephone Encounter - Santosh Pyle RN - [...] acreeda. Pt's insurance is not accepted at [facility] and but will be changed on March 20. Pt's insurance is not covered in clinic and pt will be switching to [facility] next month Will forward to Dr. Alfredo. Santosh Pyle RN NT ACCOUNT ASSISTANT Telephone Encounter - Santosh Pyle RN - 03/06/2017 11:56 AM CST Silver Service Waiter attempted to call pt, No answer. LVM for Pt to call clinic back and schedule an Appt at [phone]. Santosh Pyle RN NT ACCOUNT ASSISTANT Telephone Encounter - Edgar Alfredo MD - 03/06/2017 10:58 AM CST No refill until appointment is made NT ACCOUNT ASSISTANT Telephone Encounter - Santosh Pyle RN - 03/05/2017 11:16 AM CST buprenorphine (SUBUTEX) 2 MG SUBL sublingual tablet Controlled Substance Refill Request Last refill: 01/03/17 Last clinic visit: 10/10/16 Next appt: none scheduled Documentation in problem list reviewed: Yes Processing: call/fax RX monitoring program ([place]) reviewed: Rx for Oxycodone 10 and 20 mg tabs on 12/27/16. [place] profile: [email or web address]/ Pt had Appt's scheduled on 01/23/17, 12/23/16, 11/26/16 and didn't make it to any of these Appt's Last Appt was on 10/10/16. [address]'s scheduled. Dr. Alfredo would you like to see Pt in the clinic again? Santosh Pyle RN NT ACCOUNT ASSISTANT Telephone Encounter - Dora Merchant - 03/05/2017 10:40 AM CST Last Written Prescription Date: 01/03/17 Last Fill Quantity: 100, # refills: 0 Last Office Visit with [facility], [facility] or [facility] prescribing provider: 10/13/16 Future Office Visit: Requested Prescriptions Pending Prescriptions Disp Refills ??? buprenorphine (SUBUTEX) 2 MG SUBL sublingual tablet 100 tablet 0 Sig: Place 1 tablet (2 mg) under the tongue 5 times daily There is no refill protocol information for this order NT ACCOUNT ASSISTANT documented in this encounter Plan of Treatment Upcoming Encounters Date Type Specialty Care Team Description 11/29/2021 Office Visit Wound Care Luis Camara DPM [address], [place] [phone] (Wo rk) 01/21/2022 Office Visit Gastroenterology Juanis Levi [address] [place] [address] Luis Fernando Miles MD 516 [facility] [address] [place] [address] documented as of this encounter Visit Diagnoses Diagnosis Uncomplicated opioid dependence (H) Opioid type dependence, unspecified documented in this encounter Care Teams Flux Plant Operator Relationship Specialty Start Date End Date Luis Fernando Magana PCP - General Family Practice 12/07/16 01/19/[address] [address] documented as of this encounter
--- OUTSIDE RECORDS SUMMARY | 2021-11-28 13:45 | XMS_ITS | Encounter Summary ---
:1980 Author Organization [place] Address [address] [facility] [place] [address] Care Team Providers Name Role Phone Luis Fernando Magana Primary Care Provider Reason for Visit Reason Onset Date Comments Erroneous encounter-disregard 04/24/2017 Encounter Details Date Type Department Care Team Description 04/22/2017 Office Visit [facility] Edgar Aflredo ERRONEOUS Clinic Ashly Gauthier MD ENCOUNTER--DISREGARD [address] [place] (Primary Dx) [address] [place] [address] Social History Tobacco Use Types Packs/Day Years Used Date Smoking Tobacco: Every Day Cigarettes 0.1 10 Smokeless Tobacco: Never Comments: 5 cigarettes a day Alcohol Use Standard Drinks/Week Comments Yes 0 (1 standard drink = 0.6 oz pure Stoppe d after found out alcohol) Sex Assigned at Date Recorded Female 01/14/2020 10:57 AM ICT QUALITY 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 Please disregard. QUALITY ASSURANCE ENGINEER documented in this encounter Plan of Treatment Upcoming Encounters Date Type Specialty Care Team Description 11/29/2021 Office Visit Wound Care Luis Camara, [place] [address] [place] [address] (Wo rk) 01/21/2022 Office Visit Gastroenterology Juanis Levi [address] [place] [address] Luis Fernando Miles MD 516 [facility] [address] [place], [place] [phone] documented as of this encounter Visit Diagnoses Diagnosis ERRONEOUS ENCOUNTER--DISREGARD - Primary documented in this encounter Care Teams Photographers' Model Relationship Specialty Start Date End Date Luis Fernando Magana PCP - General Family Practice 12/07/16 01/19/[address] [address] documented as of this encounter
--- OUTSIDE RECORDS SUMMARY | 2021-11-28 13:45 | XMS_ITS | Encounter Summary ---
:1980 Author Organization [place] Address [address] [facility] [place] [place] [address] Care Team Providers Name Role Phone Luis Fernando Magana Primary Care Provider Reason for Visit Reason Onset Date Comments Refill Request 10/31/2017 buprenorphine (SUBUT EX) 2 MG SUBL sublingual tablet Encounter Details Date Type Department Care Team Description 10/31/2017 Refill [facility] Edgar Alfredo, Ref ill Request Clinic Ashly VÁSQUEZ (buprenorphine (SUBUTEX) [address] [place] 2 MG SUBL sublingual [address] tablet) [place] [phone] (Wo rk) Social History Tobacco Use Types Packs/Day Years Used Date Smoking Tobacco: Every Day Cigarettes 0.1 10 Smokeless Tobacco: Never Comments: 5 cigarettes a day Alcohol Use Standard Drinks/Week Comments Yes 0 (1 standard drink = 0.6 oz pure Stoppe d after found out alcohol) Sex Assigned at Date Recorded Female 01/14/2020 10:57 AM 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 documented as of this encounter Miscellaneous [...] Visit Wound Care Luis Camara DPM [address] [place] [address] (Wo rk) 01/21/2022 Office Visit Gastroenterology Juanis Levi [address] [place] [phone] Luis Fernando Miles MD 516 [facility] [address] [place] [address] documented as of this encounter Visit Diagnoses Diagnosis Uncomplicated opioid dependence (H) Opioid type dependence, unspecified documented in this encounter Care Teams Visual Aid Expert Relationship Specialty Start Date End Date Luis Fernando Magana PCP - General Family Practice 12/07/16 01/19/[address] [address] documented as of this encounter
--- OUTSIDE RECORDS SUMMARY | 2021-11-28 13:46 | XMS_ITS | Encounter Summary ---
:1980 Author Organization [place] Address [facility] [place] [address] Care Team Providers Name Role Phone Luis Fernando Magana Primary Care Provider Reason for Referral Consultation Specialty Diagnoses / Procedures Referred By Contact Refer red To Contact Marleny Kang MD [place] [phone] Referral ID Status Reason Start Date Expiration Date Visits Requ ested Visits Authorized H DERRICK OPERATOR Specialty Diagnoses / Procedures Referred By Contact Refer red To Contact Marleny Kang MD [place] [phone] Referral ID Status Reason Start Date Expiration Date Visits Requ ested Visits Authorized H DERRICK OPERATOR Reason for Visit Reason Comments Rule out rupture of membranes Auth/Cert Specialty Diagnoses / Procedures Referred By Contact Refer red To Contact client sales and service officer Diagnoses Maternity*JEAN MARIE: 03/07/2017 Rupture premature rupture of membranes (PPROM) delivered, current hospitalization [facility] [address] [place] [address] Phone: Referral ID Status Reason Start Date Expiration Date Visits Requ ested Visits Authorized [id number] 12/09/2016 12/09/2017 1 1 Encounter Details Date Type Department Care Team Description 12/07/2016 - Hospital Encounter [facility] Autumn Leslie willie Alvarez MD [address] [place] [address] Chronic hepatitis C without hepatic coma (H) (Primary Dx); 12/27/2016 [facility] Nalini Eli MD [address] [place] [address] Placenta accreta in third trimester; [address] [facility] S[facility] emergency hysterectomy; [place], [place] Lashawn Patel MD [address] [place] [address] Dental caries; [id number] Petrona Barone DO [address] [place] [address] S/P laparotomy [phone] So Nunez MD [address] [place] [address] Social History Tobacco Use Types Packs/Day Years Used Date Smoking Tobacco: Every Day Cigarettes 0.1 10 Smokeless Tobacco: Never Comments: 5 cigarettes a day Alcohol Use Standard Drinks/Week Comments Yes 0 (1 standard drink = 0.6 oz pure Stoppe d after found out alcohol) Sex Assigned at Date Recorded Female 01/14/2020 10:57 AM WINCH DERRICK OPERATOR documented as of this encounter Last Filed Vital Signs Vital Sign Reading Time Taken Comments Blood Pressure 119/68 12/27/2016 8:00 AM WINCH DERRICK OPERATOR Pulse 90 12/27/2016 8:00 AM WINCH DERRICK OPERATOR Temperature 36.5 ??C (97.7 ??F) 12/27/2016 8:00 AM WINCH DERRICK OPERATOR Respiratory Rate 18 12/27/2016 8:00 AM WINCH DERRICK OPERATOR Oxygen Saturation 99% 12/27/2016 8:00 AM WINCH DERRICK OPERATOR Inhaled Oxygen Concentration - - Weight 83.4 kg (183 lb 14.4 oz) 12/27/2016 6:00 AM WINCH DERRICK OPERATOR Height 167.6 cm (5' 6) 12/07/2016 2:19 PM CDT Body Mass Index 29.68 12/07/2016 2:19 PM CDT documented in this encounter Discharge Summaries Petrona Barone DO - 12/27/2016 8:18 AM CST [facility] Discharge Summary Deann King Age: [age] year [...] uncomplicated. She was initially given a dilaudid FORENSICS ANALYST, but was transitioned to PO medications on [...] Discharge Medications: Deann King Home Medication Instructions MAILE:[id number] Printed on:12/28/16 0800 Medication Information acetaminophen (TYLENOL) 325 MG tablet [...] machinery while on narcotics. Marleny Kang MD STARCHMAKER PGY-3 I agree with above discharge summary Petrona Barone DO FACOG Maternal Medicine Specialist Pager: [phone] H DERRICK OPERATOR documented in this encounter Discharge Instructions Discharge InstructionsErika Villalpando RN - 12/27/2016 7:51 AM WINCH DERRICK OPERATOR Postop Instructions Activity ?? Do not lift [...] questions or concerns after you return home. H DERRICK OPERATOR documented in this encounter Medications at [...] 1 tablet (1 mg) 100 tablet 3 05/ 01/31/2018 MG tablet by mouth daily ibuprofen [...] family while he is in the NICU. Olpez's family are Mom, Deann, Dad Rafal and [...] Deann and John are on [facility]. John will be on WIC. At this time Deann has a car seat without a base for the baby. Deann mentioned she has a social media community manager Francisco who helps them with the children. JACKIE spoke with [facility] and they report that the family has been assigned to Francisco Silverman [phone] who is director of casework with CPS ongoing. (Francisco is out of office until 01/27/17, this manual writer left ). Deann has history of substance use disorder and has been sober for 8 years. She is followed closely by Dr. Alfredo and is on Subutex. Deann also struggles with anxiety and depression, at this time she reports she is doing well. I)JACKIE confirmed with pt's [facility] [phone] that Deann is able to schedule one [...] up to visit. JACKIE spoke with NICU manager china and SW informed Deann that an exception would not be made. JACKIE left [facility] at bedside for Deann to sign so that this manual writer can coordinate care with on license of [facility] social media community manager Francisco. A)JACKIE spoke with MOB Deann via [...] from NICU John's 12/24/16 chart on 01/23/17 H DERRICK OPERATOR Petrona Barone, - 12/27/2016 5:20 AM CST [facility] Post- Note Name: Deann King S: Patient [...] Routine management: Pain: S/p TAP blocks and FORENSICS ANALYST. Scheduled ibuprofen and tylenol. PO oxycodone 20 [...] plan regarding pain management Marleny Kang MD Construction Craft Laborer, PGY-3 Physician Attestation IPetrona DO, saw and [...] face to face or coordinating care of EufemiaJanay King. Over 50% of my time on the unit was spent counseling the patient and/or coordinating care regarding post c/hyst, opioid dependence, discharge instructions. H DERRICK OPERATOR Petrona Barone DO - 12/26/2016 6:42 AM CST [facility] Note Name: Deann King S: Patient is [...] Routine management: Pain: S/p TAP blocks and FORENSICS ANALYST. Scheduled toradol, tylenol. PRN IV dilaudid and [...] and meeting postoperative goals Marleny Kang MD Construction Craft Laborer, PGY-3 Physician Attestation I, Petrona Barone, DO, [...] coordinating care regarding postop care from c/hyst. H DERRICK OPERATOR Marleny Kang MD - 12/25/2016 9:54 PM [...] oximetry, discussed with RN. Marleny Kang MD STARCHMAKER PGY-3 H DERRICK OPERATOR Marilu Lam MD - 12/25/2016 9:38 PM CST I have seen and examined this patient this AM (note delayed). She is HD stable and tolerating her recovery to date. WE have discussed the implication of her surgery and she is aware that she will not be able to have additional children, but is grateful to be feeling well. Marilu Lam H DERRICK OPERATOR Petrona Barone DO - 12/25/2016 5:44 AM CST [facility] Note Name: Deann King S: Patient is [...] b/l I/O last 3 completed shifts: In: 90619 [I.V.:4800] Out: 5900 [Urine:900; Blood:5000] Hgb: Hemoglobin [...] 2. cares: Pain: S/p TAP blocks. Dilaudid FORENSICS ANALYST with scheduled tylenol. Holding NSAIDs until Hgb [...] Hypothyroidism: - Continue synthroid. Marleny Kang MD Construction Craft Laborer, PGY-3 Physician Attestation I, Petrona Barone DO, [...] tolerance. Labs stable. Toradol given now. Increase FORENSICS ANALYST to 0.3mg continuous with 0.3-0.5mg bumps. Total [...] regarding post op pain, recovery plan, etc. H DERRICK OPERATOR Marleny Kang MD - 12/25/2016 2:56 AM CST [facility] Note Name: Deann King S: Patient seen [...] b/l I/O last 3 completed shifts: In: 97151 [I.V.:4800] Out: 5900 [Urine:900; Blood:5000] Hgb: Hemoglobin [...] 2. cares: Pain: S/p TAP blocks. Dilaudid FORENSICS ANALYST with scheduled tylenol, will increase demand dose. Holding NSAIDsuntil Hgb stabilizes. Continue home subutex for history of substance abuse. Supportive measures including warm packs, abdominal binder. GI: CLD, advance as tolerated. Scheduled bowel regimen ordered. : Duarte in place, strict Is/Os. Daily weights. Rh: Positive. Rubella: Non-immune, MMR ordered. Mood: Continue home effexor, wellbutrin. SW is following patient. Marleny Kang MD Construction Craft Laborer, PGY-3 12/25/2016, 2:28 AM H DERRICK OPERATOR Yareli Greenwood RN - 12/24/2016 8:35 PM [...] Dr. Barone M staff and Dr. Nunez STARCHMAKER staff were notified. Delivery plan was confirmed [...] OR notified, proceed urgently. Marleny Kang MD STARCHMAKER PGY-3 MF staff note: Called regarding change in clinical status for patient. Delivery indicated in the setting of pretermcervical dilation, hemorrhage with known posterior placenta previa/possible accreta and prolonged ROM. S/p BMZ nearly 2 weeks ago. Magnesium sulfate for COSTUME SEAMSTRESS recommended. Type and cross with blood in OR. Petrona Barone DO FACOG Maternal Medicine Specialist Pager: [phone] H DERRICK OPERATOR Petrona Barone DO - 12/24/2016 10:18 AM CST [facility] Antepartum Progress Note Subjective: She is doing [...] 140s, moderate variability, present accels, absent decels [place]: no contractions or irritability noted Imaging: See [...] bleeding. Plan c-hyst unless previa resolves with [facility] double staff. - Care conference scheduled [...] million. Needs follow up with GI or Project Economist for treatment options . - Notify NICU [...] with Dr. Barone. Tatyana Walsh MD MPH STARCHMAKER, PGY3 Pager: [phone] 12/23/2016 10:04 AM Physician Attestation I, Petrona Barnoe DO, saw and evaluated Deann King with [...] team of new symptoms. Marleny Kang MD STARCHMAKER PGY-3 Petrona Tinoco DO - 12/23/2016 10:04 [...] 130s, moderate variability, present accels, absent decels [place]: quiet, no contractions Assessment/Plan: Deann King is [...] bleeding. Plan c-hyst unless previa resolves with S double staff. ? 3) FWB: - Category [...] - Needs follow up with GI or Project Economist for treatment options . ? 5) History [...] with Dr. Barone. Tatyana Walsh MD MPH STARCHMAKER, PGY3 Pager: [phone] 12/23/2016 10:04 AM Physician Attestation I, Petrona [...] Friday IV at all times, current T&S Mon/ assessment with US Petrona Barone DO Date of Service (when I saw the patient): 12/23/16 Time Spent on this Encounter I, Petrona Barone DO, spent a total of 15 minutes face to face or coordinating care of Reji King. Over 50% of my time on the unit was spent counseling the patient and/or coordinating care regarding placenta previa/PPROM, possible accreta. H DERRICK OPERATOR Nora Mohamud MD - 12/22/2016 10:45 AM [...] 6. Hepatitis C - s/p GI at [facility] in 2013, genotype 1a - normal [...] patient): December 22, 2016 Nora Mohamud MD Steel Chipper, STARCHMAKER Maternal- Medicine [email or web address] [phone] (Academic office) [phone] (Pager) H DERRICK OPERATOR Nora Mohamud MD - 12/21/2016 11:52 AM [...] 6. Hepatitis C - s/p GI at [facility] in 2013, genotype 1a, inpatient GI [...] patient): December 21, 2016 Nora Mohamud MD Steel Chipper, STARCHMAKER Maternal- Medicine [email or web address] [phone] (Academic office) [phone] (Pager) Apple Sen RD - 12/20/2016 11:41 [...] protocol. Apple Sen RD, LD Unit Pager: [phone] Lashawn Patel MD - 12/20/2016 8:59 AM CDT MFM Antepartum Progress Note Subjective: Deann is doing well today. She denies cramping, contractions, vaginal bleeding. Continues to note clear leakage of fluid. Baby is active. Rash is much improved with hydrocortisone cream. Objective: Vitals: 12/19/16 1900 12/19/16 2330 12/20/16 0450 12/20/16 0815 BP: 95/51 105/55 106/57 Pulse: Resp: Temp: 97.7 ??F (36.5 ??C) 98.4 ??F (36.9 ??C) 97.5 ??F (36.4 ??C) 98 ??F (36.7 ??C) TempSrc: Oral Oral Oral Oral Weight: Height: Gen: Resting comfortably in bed, NAD Abd: Gravid, soft, non-tender, non-distended Ext: warm, well-perfused FHT: Baseline 140s, moderate variability, + accels, rare variable decels [place]: quiet, 0 ctx in 10 minutes Assessment/Plan: [...] bleeding. Plan c-hyst unless previa resolves with [facility] double staff. ? 3. FWB: - [...] - Needs follow up with GI or Project Economist for treatment options . ? 5. History [...] accels, absent decels - appropriate for GA. [place]: no contractions No intervention needed at this time. Tatyana Walsh MD MPH STARCHMAKER, PGY3 Pager: [phone] 12/19/2016 11:56 PM Lashawn Patel MD - 12/19/2016 9:54 AM CDT MFM Antepartum Progress Note Subjective: Deann is doing well today. She denies cramping, contractions, vaginal bleeding. Continues to note clear leakage of fluid. Baby is active. Objective: Vitals: 12/18/16199912/18/16 2330 12/19/16 0415 12/19/16 0800 BP: 114/58 112/54 Pulse: 95 Resp: 18 Temp: 97.9 ??F (36.6 ??C) 97.8 ??F (36.6 ??C) 97.8 ??F (36.6 ??C) 97.7 ??F (36.5 ??C) TempSrc: Oral Oral Oral Oral Weight: Height: Gen: Resting comfortably in bed, NAD Abd: Gravid, soft, non-tender, non-distended Ext: warm, well-perfused FHT: Baseline 130s, moderate variability, + accels, no decels [place]: quiet, 0 ctx in 10 minutes Assessment/Plan: [...] - Needs follow up with GI or Project Economist for treatment options . ? 5. History [...] accels, absent decels - appropriate for GA. [place]: no contractions No intervention needed at this time. Tatyana Walsh MD MPH STARCHMAKER, PGY3 Pager: [phone] 12/19/2016 3:13 AM Lashawn Patel MD - [...] 130s, moderate variability, + accels, no decels [place]: quiet, 0 ctx in 10 minutes Assessment/Plan: [...] - Twice weekly BPPs, presentation. Next scheduled 12/19??(M/Th). - Q3 week growth US (next 12/29/16). [...] - Needs follow up with GI or Project Economist for treatment options . ? 5. History [...] weeks from dose increase. Marleny Kang MD STARCHMAKER PGY-3 Physician Attestation I, Lashawn Patel, saw [...] from scratching area. Tatyana Walsh MD MPH STARCHMAKER, PGY3 Pager: [phone] 12/18/2016 12:08 AM Marleny Kang MD - 12/17/2016 12:35 PM CDT STARCHMAKER Progress Note Patient complaining of right ear pain. Notes some mild nasal stuffiness. Denies fever, postnasal drip, hearing changes, other signs of systemic illness including fevers. Denies history of ear infection. Gently cleans ears. Otoscopic exam without exudate or signs of infection, clear TM, no tenderness with motion. Will give debrox drops and monitor for symptoms. Marleny Kang MD STARCHMAKER PGY-3 Marleny Kang MD - 12/17/2016 11:29 AM CDT STARCHMAKER Progress Note Patient seen at bedside to [...] attempt at this time. Marleny Kang MD STARCHMAKER PGY-3 Lashawn Patel MD - 12/17/2016 6:56 [...] 150's, moderate variability, + accels, no decels [place]: Quiet Assessment/Plan: Deann King is a 36 [...] - Needs follow up with GI or Project Economist for treatment options . ? 5. History [...] accels, absent decels - appropriate for GA. [place]: no contractions No intervention needed at this time. Tatyana Walsh MD MPH STARCHMAKER, PGY3 Pager: [phone] 12/17/2016 Lashawn Patel MD - 12/16/2016 6:54 [...] 140s, moderate variability, + accels, no decels [place]: 0 ctx in 10 minutes, quiet Assessment/Plan: [...] - Needs follow up with GI or Project Economist for treatment options . ? 5. History [...] and acupuncture as needed. Marleny Kang MD STARCHMAKER PGY-3 Physician Attestation I, Lashawn Patel, saw [...] accels, absent decels - appropriate for GA. [place]: no contractions No intervention needed at this time. Tatyana Walsh MD MPH STARCHMAKER, PGY3 Pager: [phone] 12/16/2016 2:14 AM Petrona Barone DO - [...] a larger area since then. Objective: Vitals: 12/14/16200112/14/16 2355 12/15/16 0600 12/15/16 0830 BP: 108/60 117/59 117/56 Pulse: Resp: 18 18 Temp: 98.5 ??F (36.9 ??C) 98.4 [...] moderate variability, present accelerations (10x10), absent decelerations [place]: No contractions noted 12/03 MR IMPRESSION: 1. [...] - Twice weekly AFIs and presentation. Next 12/16??(/Th) - Twice weekly BPPS after 28 weeks. [...] - Needs follow up with GI or Project Economist for treatment options . ? 5. History [...] Fadumo Cyr MD OBGYN PGY3 Physician Attestation IPetrona DO, saw and evaluated [...] date. Modified bed rest. Twice weekly BPPs (/). Petrona Barone DO Date of Service (when [...] 150, moderate variability, present accelerations, absent decelerations [place]: No contractions noted 12/03 MR IMPRESSION: 1. [...] - Needs follow up with GI or Project Economist for treatment options . ? 5. History [...] 12:05 PM 12/14/2016 Physician Attestation I, Petrona Barone, , saw and evaluated Deann King with the [...] to face or coordinating care of Reji Knig. Over 50% of my time on the [...] patient, she is agreeable. Elizabeth Manzanares MD STARCHMAKER Resident PGY4 Pager [phone] 12/13/[address] - 12/13/2016 12:12 [...] (nausea, vomiting) up until about a week SINGEING TORCH OPERATOR. Over the past 2 weeks she [...] protocol. Echo Graham RD, LD Unit Pager: [phone] Nora Mohamud MD - 12/13/2016 8:50 AM [...] variable decels. Overall appropriate for gestational age. [place]: no contractions, quiet ? US (12/08): posterior/left complete previa, transverse, oligohydramnios with MARCELLA 4.3 cm, EFW 943 grams, 37%ile US (12/10): Echo: normal cardiac anatomy. Normal intracardiac connections, normal right and left ventricular size and function. No effusion. US 10 (26): posterior left complete placenta previa, cephalic, oligohydramnios [...] - Needs follow up with GI or Project Economist for treatment options . ? 5. History [...] the treatment of hepatitis C with a validation intern. A consultation was placed to discuss management [...] 6. Hepatitis C - s/p GI at [facility] in 2013, genotype 1a, inpatient GI [...] spent a total of 15 minutes with Deanndelon King, >50% of which was spent in counseling and/or coordination of care. Date of service (when I saw the patient): December 13, 2016 Nora Mohamud MD Steel Chipper, STARCHMAKER Maternal- Medicine [email or web address] [phone] (Academic office) [phone] (Pager) Tatyana Walsh MD - 12/13/2016 3:23 AM CDT Strip Review (Not delayed due to patient care) FHT: Baseline 150s bpm, moderate variability, prolonged accels, absent decels - appropriate for GA. [place]: no contractions No intervention required at this time. Tatyana Walsh MD MPH STARCHMAKER, PGY3 Pager: [phone] 12/13/2016 3:23 AM Jess Bernstein LICSW - 12/12/2016 11:11 AM CDT Met with patient today and completed [employer] application. Application faxed today. SW will continue [...] small decels. Overall appropriate for gestational age. [place]: no contractions, quiet ? US (12/08): posterior/left [...] - Needs follow up with GI or Project Economist for treatment options . ? 5. History [...] 6. Hepatitis C - s/p GI at [facility] in 2013, genotype 1a - normal [...] patient): December 12, 2016 Nora Mohamud MD Steel Chipper, STARCHMAKER Maternal- Medicine [email or web address] [phone] (Academic office) [phone] (Pager) Tatyana Walsh MD - 12/12/2016 12:53 AM CDT Strip Review (Not delayed due to patient care, services at 2200 on 12/11/2016) FHT: Baseline 140-150s bpm, moderate variability, prolonged accels, absent decels - appropriate for GA. [place]: no contractions No intervention required at this time. Tatyana Walsh MD MPH STARCHMAKER, PGY3 Pager: [phone] 12/12/2016 12:53 AM Nora Kovacs, PT - [...] in agreement with plan of care Yes [facility] AM-PAC TM 6 Clicks ?? 2016, Trustees of [facility], under license to [employer]. All rights reserved. 6 Clicks Short Forms Basic Mobility Inpatient Short Form [facility] AM-PAC??? 6 Clicks V.2 Basic Mobility [...] small decels. Overall appropriate for gestational age. [place]: no contractions, quiet ? US (12/08): posterior/left [...] - Needs follow up with GI or Project Economist for treatment options . ? 5. History [...] 6. Hepatitis C - s/p GI at [facility] in 2013, genotype 1a - normal [...] patient): December 11, 2016 Nora Mohamud MD Steel Chipper, STARCHMAKER Maternal- Medicine [email or web address] [phone] (Academic office) [phone] (Pager) Tatyana Walsh MD - 12/10/2016 11:23 PM CDT Strip Review FHT: Baseline 150s bpm, moderate variability, present accels, absent decels - appropriate for GA. [place]: no contractions No intervention needed at this time. Tatyana Walsh MD MPH STARCHMAKER, PGY3 Pager: [phone] 12/10/2016 11:24 PM Jess Bernstein, QUALITY TECHNICIAN - 12/10/2016 11:49 AM CDT [facility] MATERNAL CHILD HEALTH SOCIAL WORK PROGRESS NOTE DATA: Met with Deann to assess needs and to offer support. Patient is 36 year-old, Deann King. She and her , Rafal have been for two years. They live in subsidized housing in [place], [place]. Deann and Rafal know they are [...] defect and was in the NICU at [facility]. in November 2014 at 5 1/2 months [...] work. Rafal works at a factory in [place].Rafal does not have his pile driver's license. Deann did not offer details [...] Assistance, talamantes and food assistance benefits through [facility]. Baby Lopez will be added to these programs upon . Deann would like to switch her MA to [employer] and is asking for SW assistance with this. Encouraged Deann to contact [facility] Economic Assistance and ask to speak to a financial worker to see what is needed to make this change. Deann is not currently enrolled in [facility] but is interested in application for these benefits. JACKIE contacted [facility] today and message left for the Arcade Game Technician to see if it is possible to enroll Deann and her 4 year-old son in [facility] while Deann is hospitalized. Deann has only limited baby supplies-- some clothing and a swing. can provide assistance with a Pack N Play and diapers from [facility]. Deann has history of chemical abuse. She [...] from this experience that having an ongoing social media community manager can be helpful to her and to her children. She has been working with a SW at [facility] (Francisco [phone]) . Deann identifiesthis SW at very supportive. [...] support. PLAN: SW will continue to follow Nora Dobson MD - 12/10/2016 8:27 AM CDT Images [...] results from her echo today from the torpedo worker. She informed us everything looked normal. She [...] small decels. Overall appropriate for gestational age. [place]: 1 contraction in 1 hour, not felt [...] - Needs follow up with GI or Project Economist for treatment options . ? 5. History [...] 6. Hepatitis C - s/p GI at [facility] in 2013, genotype 1a - normal [...] patient): December 10, 2016 Nora Mohamud MD Steel Chipper, STARCHMAKER Maternal- Medicine [email or web address] [phone] (Academic office) [phone] (Pager) ?? Tatyana Walsh MD - 12/09/2016 10:46 PM CDT Strip Review FHT: Baseline 150s bpm, moderate variability, present accels, absent decels - appropriate for GA. [place]: 1 contractions/30 mins No intervention needed at this time. Hypothyroidism - TSH returned at normal range - no change to current synthroid needed. Depression - pending psych consult at this time. Continue home effexor. Tatyana Walsh MD MPH STARCHMAKER, PGY3 Pager: [phone] 12/09/2016 10:46 PM Nora Mohamud MD - [...] 130s, moderate variability, + accels, no decels [place]: quiet, 0 ctx in 10 minutes US [...] will follow-up on administration. Marleny Kang MD STARCHMAKER PGY-3 Maternal- Medicine Attending Addendum Late entry, [...] needs echo due to history of previous infant with congenital heart disease 4. Hypothyroidism - continue levothyroxine - due for routine TSH to assess therapy adequacy, ordered 5. Opioid dependence - continue buprenorphine 6. Hepatitis C - s/p GI at [facility] in 2013, genotype 1a - normal [...] patient): December 09, 2016 Nora Mohamud MD Steel Chipper, STARCHMAKER Maternal- Medicine [email or web address] [phone] (Academic office) [phone] (Pager) Tatyana Walsh MD - 12/08/2016 7:58 PM CDT Strip Review FHT: Baseline 150s bpm, moderate variability, present accels, absent decels - appropriate for GA. [place]: no contractions, uterine irritability Tatyana Walsh MD MPH STARCHMAKER, PGY3 Pager: [phone] 12/08/2016 8:00 PM Italia Galarza DO - [...] 140s, moderate variability, + accels, no decels [place]: 0 ctx in 10 minutes US (12/08): [...] and Tdap ordered today. Marleny Kang MD STARCHMAKER PGY-3 Attending Attestation: I agree with the residents note above. I spent 15 minutes total [id number] with this inpatient, and >50% of the [...] toxicity at this time. Rossana Barker MD Construction Craft Laborer, PGY-3 12/08/2016, 2:23 AM documented in this encounter H&P Notes Nora Leyva MD - 12/07/2016 3:06 PM CDT [facility] OB History and Physical Deann King Age: [...] Negative Negative for C. trachomatis rRNA by manager stylist mediated amplification. A negative result by manager stylist mediated amplification does not preclude the presence of C. trachomatis infection because results are dependent on proper and adequate collection, absence of inhibitors, and sufficient rRNA to be detected. [facility] 08/29/2016 Negative Negative for N. gonorrhoeae rRNA by manager stylist mediated amplification. A negative result by manager stylist mediated amplification does not preclude the presence [...] BREAST SURGERY ABcess drained ??? SECTION ??? NURSES' ASSOCIATION COUNSELOR SURGERY ??? ORTHOPEDIC SURGERY ??? THORACIC SURGERY [...] 150, moderate variability, no accelerations, no decelerations [place]: 0 contractions in 10 minutes Assessment Ms. [...] Sofía Cao APRN, CNP, 12/20/2016 4:[address] [facility] Intensive Care Unit [place] Amanda, Elba - 12/17/2016 4:53 PM CDTAssociated Order(s): MENTAL [...] a consultation by Nora Mohamud MD at [facility] Antepartum. Patient is currentlyunemployed. She had been working for her mother's [employer] service, but had to stop due to [...] through lifestyle changes. She and her attend nondenominational-based meetings twice a week and no longer [...] she may schedule outpatient follow-up with [facility] (call [phone] and inform nursing scheduler that you are or have recently had a baby) or contact insurance company for additional referrals.? Please contact [facility] if patient is in need of supports while on antepartum.?? She currently denies need for ongoing mental health support services. Provider routed the results of this consultation and treatment recommendations to referring provider. Provider reviewed the results of this consultation and treatment recommendations with referring provider via EPIC Referral to another professional/service is not indicated at this time.. So Sauceda [place] ROWLAND PsyD, NEO December 17, 2016 Gabby Samaniego LP - [...] time to herself. She asked if this manual writer could return tomorrow or later this afternoon, but this manual writer told her that she is booked and won't be able to accommodate except for this morning. Bit Sharpener mentioned at the end that if she [...] time to herself. She asked if this manual writer could return tomorrow or later this afternoon, but this manual writer told her that she is booked and won't be able to accommodate except for this morning. Bit Sharpener mentioned at the end that if she [...] this service's next availability). Madonna Carrasquillo APRN WARRANT SERVER - 12/07/2016 5:00 PM CDTAssociated Order(s): NURSE [...] potential risks, and outcomes associated with an infant born at approximately 27 weeks gestation. The counseling included: morbidity, mortality, initial delivery room stabilization, respiratory course, lung development, patent ductus arteriosus, retinopathy of prematurity, hyperbilirubinemia, hemodynamic support, infection (including NEC), intraventricular hemorrhage, nutrition, growth and development, and wildlife veterinarian outcomes. Please feel free to call with any additional questions or concerns. Madonna Carrasquillo APRN, [facility] 12/07/2016 6:51 PM Nurse Practitioner Service Intensive Care Unit [facility] Floor Time (min): 5 Face to [...] leveled and Zeroed, after labs were drawn, Channing was removed with approval of Dr Torres. Site held for 5 minutes and dressing placed to Left wrist, no bleeding or oozing noted at that time. Pt VSS, capnography started, pt's family updated via phone, will report to floor RN. H DERRICK OPERATOR Lisa Rubio RN - 12/25/2016 1:42 AM CST PACU to Inpatient Nursing Handoff Patient Deann King is a 36 year old female who speaks [place]. Procedure Procedure(s): Section Immediate Hysterectomy, Bilateral Salpingectomy [...] mg (total dose) last given at 0131 FORENSICS ANALYST / epidural Yes. FORENSICS ANALYST - hydromorphone (Dilaudid) Capnography Telemetry ECG Rhythm: [...] All Extremities Sensation: no numbness;no tingling (12/24/16 09) Equipment capnography and FORENSICS ANALYST Other LDA IV Access Peripheral IV 12/22/16 Left Upper forearm (Active) Site Assessment [facility] except;Leaking 12/25/2016 12:38 AM Line Status Saline locked 12/25/2016 12:38 AM Phlebitis Scale 0-->no symptoms 12/23/2016 8:45 AM Infiltration Scale 0 12/23/2016 8:45 AM Dressing Intervention Other (Comment) 12/23/2016 8:45 AM Number of days:3 Peripheral IV 12/24/16 Right Upper forearm (Active) Site Assessment [facility] 12/25/2016 12:38 AM Line Status Saline locked 12/25/2016 12:38 AM Number of days:1 Peripheral IV 12/24/16 Left Lower forearm (Active) Site Assessment [facility] 12/25/2016 12:38 AM Line Status Infusing 12/25/2016 [...] 12/25/2016 12:05 AM Rationale for Continued Use Anesthesia;/GI/NURSES' ASSOCIATION COUNSELOR Pelvic Procedure 12/25/2016 12:05 AM Urine Output 235 mL 12/25/2016 1:12 AM Number of days:1 Time of void PreOp Void Prior to Procedure: 1835 (12/24/162005) PostOp Voided (mL): 150 mL (12/08/168) Urine Occurrence: 0 (12/20/16 040) Bladder Scan PO 118 mL (12/08/16 0115) [...] antepartum lounge per the antepartum RN. Lisa Rubio RN ASCOM [id number] H DERRICK OPERATOR documented in this encounter Miscellaneous Notes Plan of Care - Nakia Figueroa SINGEING TORCH OPERATOR - 12/27/2016 3:26 PM CST Problem: PT [...] questions and will d/c from inpatient PT. H DERRICK OPERATOR Associated attestation - Roxy Sr, PT - 12/27/2016 6:21 PM WINCH DERRICK OPERATOR Physical Therapy Discharge Summary Reason for therapy discharge: Discharged to home with outpatient therapy. Progress towards therapy goal(s). See goals on Care Plan in [facility] electronic health record for goal details. Goals [...] leaving. F/U in clinic understood by patient. H DERRICK OPERATOR Plan of Care - Erika Villalpando RN - 12/27/2016 7:50 AM CST Referral made to [facility] for early dc. H DERRICK OPERATOR Plan of Care - Lucia Cotton RN [...] out which was taken to the nicu. H DERRICK OPERATOR Plan of Care - Hyacinth Wolf RN [...] more. Will continue with plan of Care. H DERRICK OPERATOR Note - Nikky Smith RNC - 12/26/2016 [...] P: Will continue to provide support. Nikky Smith RNC, IBCLC H DERRICK OPERATOR Plan of Care - Lucia Cotton, RN [...] of without calling us to stand by. H DERRICK OPERATOR Plan of Care - Yessenia Julian RN [...] at bedside. Continue with plan of care. H DERRICK OPERATOR Provider Notification - Kristie Merida RN - 12/25/2016 9:01 PM CST Sepsis alert came up for pt. BP 91/63. HR of 115. SpO2 of 98. H DERRICK OPERATOR Plan of Care - Maria Antonia Hidalgo [...] and oral oxycodone given with initial relief. H DERRICK OPERATOR Provider Notification - Kristie Merida RN - 12/25/2016 7:48 PM CST Do you want pt to continue with IV Toradol and Dilaudid? FYI-pt is going outside to smoke. H DERRICK OPERATOR Plan of Care - Maria Antonia Hidalgo [...] Patient medicated during the shift with dilaudid FORENSICS ANALYST for pain, which was discontinued at 13:50. [...] any other needs. Anticipate discharge on Friday. H DERRICK OPERATOR Plan of Care - Maria Antonia Hidalgo [...] one hour. Fixed and working well now H DERRICK OPERATOR Plan of Care - Khloe Elmore RN - 12/25/2016 5:50 AM CST Problem: ( Delivery) (Adult,Obstetrics,Pediatric) Goal: Signs and Symptoms of Listed Potential Problems Will be Absent, Minimized or Managed () Signs and symptoms of listed potential problems will be absent, minimized or managed by discharge/transition of care (reference ( Delivery) (Adult,Obstetrics,Pediatric) CPG). Outcome: No Change Pt's pain intolerable with FORENSICS ANALYST @ 0.2mg dilaudid every 10 minutes, dose increased to 0.3mg every 10 minutes with max dose delivery 1.2mg/hr. Pt's pain remains intolerable, but getting better, she falls asleep between FORENSICS ANALYST doses. H DERRICK OPERATOR Op Note - So Nunez MD - 12/24/2016 11:53 PM CST [facility] Full Operative Progress Note Surgery Date: 12/24/2016 Surgeon: So Nunez MD Assistants: Marilu Lam MD Wire Stripping Machine Operator/Onc staff Petrona Barone MD MFM staff Donita Barrow MD MFM fellow Margarita Talbert MD Wire Stripping Machine Operator/Onc fellow Marleny Kang MD PGY-3 Tatyana Govea MD PGY-3 Kayla Davidson MD PGY-2 Exceptional Circumstances Require an Acting Section Chief Surgeon -Exceptional medical circumstances in this case required the participation of delivery driver assistant surgeons Drs. Barone and Idania in [...] with bandage scissors inferiorly and superiorly. The infant was noted to be in the OA [...] entirety of the procedure. Marleny Kang MD Construction Craft Laborer, PGY-3 12/24/2016, 11:54 PM I was present and scrubbed throughout the procedure, I agree with the note above So Nunez MD H DERRICK OPERATOR Brief Op Note - Marleny Kang MD - 12/24/2016 11:23 PM CST [facility] Hysterectomy Brief Operative Note Surgery Date: 12/24/2016 Surgeon: So Nunez MD; Marilu Lam MD (intraoperative consult) Assistants: Petrona Barone MD MFM staff Donita Barrow MD MFM fellow Margarita Talbert MD Wire Stripping Machine Operator/Onc fellow Marleny Kang MD PGY-3 Tatyana Govea [...] Disposition: Stable to PACU Marleny Kang MD STARCHMAKER PGY-3 H DERRICK OPERATOR Op Note - Marilu Lam MD - 12/24/2016 10:18 PM CST DATE OF SERVICE: 12/07/2016 Remainder of this note will be dictated by Dr. Nunez's service and for my portion is as follows: ATTENDING: Marilu Lam MD CUSTOMER SALES ADVISOR: Dr. Talbert, PGY 7 ANESTHESIA: GET COMPLICATIONS: None. PROCEDURE: Hysterectomy, bilateral salpingectomy. This was an intraoperative consultation on a patient of Dr. Nunez's who had undergone a section at 29 [...] back to . MARILU LAM MD MT: [place] Name: DEANN KING Account: [id number] : 1980 Procedure Date: 12/07/2016 Document: [id number] H DERRICK OPERATOR Plan of Care - Juanis Henson, RN [...] Kang and questions answered. SCD's were placed. [facility] saw patient prior to transfer to the OR. There was no new bleeding after the spec exam and prior to transfer to cart. While transferto OR patient felt blood coming out and only a small amount was seen on perineum. Dr. Barone was updated on patient status while transfer to OR. H DERRICK OPERATOR Plan of Care - Juanis Henson RN - 12/24/2016 6:04 PM CST Problem: Patient Care Overview Goal: Plan of Care/Patient Progress Review Outcome: No Change Continues to have cramping. Intensity remains the same. Continue to monitor. H DERRICK OPERATOR Plan of Care - Nakia Figueroa PTA - 12/24/2016 4:18 PM CST Problem: PT General Care Plan Goal: PT target date for goal attainment PT: patient displayed improvement with pain and prior to treatment rated neck pain 4/10 and after manual therapy decreased to 0/10. [facility] PT Patient plan for discharge: home Current status: patient independent with all mobilities and HEP Barriers to return to prior living situation: none Recommendations for discharge: home would benefit from OP PT for management of neck and back Rationale for recommendations: decrease back and neck pain and improve posture. Entered by: Nakia Figueroa 12/24/2016 4:17 PM H DERRICK OPERATOR Plan of Care - Petrona Sharif RN [...] 140s, with moderate variability and without decelerations. H DERRICK OPERATOR Plan of Care - Annie Allen RN [...] labor, signs/symptoms of infection, or /maternal compromise. H DERRICK OPERATOR Plan of Care - Annie Allen RN [...] reassured after exam. Continue plan of care. H DERRICK OPERATOR Provider Notification - Annie Allen RN - 12/24/2016 12:02 AM CST 12/24/16 0002 Provider Notification Provider Name/Title Dr. Kang Method of Notification Electronic Page Request Evaluate - Remote Notification Reason Other (Comment) Pt requesting UA/UC for increased urine frequency. Thanks H DERRICK OPERATOR Provider Notification - Juanis Henson RN - [...] see patient when she returns to floor. H DERRICK OPERATOR Plan of Care - Juanis Henson RN [...] symptoms. RN will talk with Dr. Kang. H DERRICK OPERATOR Plan of Care - Juanis Henson RN [...] ate, in case she progresses into labor. H DERRICK OPERATOR Provider Notification - Leslie Mendoza RN - 12/23/2016 3:35 PM CST 12/23/16 0755 Provider Notification Provider Name/Title Dr. Walsh, Dr. Barone, Med student Method of Notification At Bedside Request Evaluate in Person Notification Reason Status Update H DERRICK OPERATOR Plan of Care - Leslie Mendoza RN [...] labor, signs/symptoms of infection, or /maternal compromise. H DERRICK OPERATOR Provider Notification - Leslie Mendoza RN - 12/23/2016 12:31 PM CST 12/23/16 0945 OB Patient Position Activity/Level of Assist Ambulating Patient went outside H DERRICK OPERATOR Provider Notification - Leslie Mendoza RN - 12/23/2016 12:31 PM CST 12/23/16 0720 OB Patient Position Maternal Position Standing Activity/Level of Assist Ambulating Patient went outside (to smoke) H DERRICK OPERATOR Provider Notification - Leslie Mendoza RN - 12/23/2016 7:58 AM CST Providers here for morning rounds and EFM strip review. Patient concerned about her oral pain on hertongue. There is a sore/ulceration there. Providers reminding patient to NOT self examine digitally her cervix. H DERRICK OPERATOR Plan of Care - Bonita Love RN [...] Will continue with current plan of care. H DERRICK OPERATOR Provider Notification - Bonita Love RN - 12/22/2016 8:02 PM WINCH DERRICK OPERATOR 12/22/162000 Provider Notification Provider Name/Title Dr. Kang Method of Notification In Department Notification Reason Other (Comment) Patient reporting increased leaking of fluid today. Yellow colored on pads, no odor. Patient is not having any abdominal tenderness. Afebrile. Pt declines monitoring at this time. Dr. Kang updated. H DERRICK OPERATOR Plan of Care - Yareli Marsh RN [...] today. Will continue with plan of care. H DERRICK OPERATOR Plan of Care - Wendy Richter RN [...] VSS; EFM as charted. Continue expectant management. H DERRICK OPERATOR Plan of Care - Wendy Richter RN - 12/22/2016 3:13 AM CST Due to daylight savings time, labor calculations, ruptured membrane calculations and/or cervical exams times may be off by up to one hour from the actual time. A summary of the times/calcuations follows: None for this patient. H DERRICK OPERATOR Plan of Care - So Cheng RN [...] son. They have been working on some Davia blanketsand watching movies. Pt continues to go outside [...] the bathroom for longer period of time. [facility] PT Patient plan for discharge: home Current [...] to monitor and update providerwith any changes. [place] quiet and EFM mod variability, occasional accels, [...] No visitors last diana but worked on [employer] and did other crafts/games. No complaints today. [...] for tomorrow. Plan of Care - So Vega, RN - 12/18/2016 8:46 AM CDT Problem: [...] axillary as well as left upper abd. [place], raised areas, itches but also dal[place] per [...] postural exercises and relief with suboccipital release. [facility] PT Patient plan for discharge: home Current [...] functional goals as expected D: Patient called manual writer into room at 1230 stating pain in her side after laughing at the [employer] tv. Placed on EFM, no contractions noted accelerations and baby appropriate for gestational age.Patient called manual writer back into room at 1305 stating [...] of Care/Patient Progress Review Outcome: No Change Bit Sharpener went to assess vital signs. Pt. Stated that she had some reddish pink mucus in the toilet andsome pink fluid on the toilet tissue. Small quarter sized reddish pink mucus noted in the bottom of the toilet. Urine was yellow colored, no blood noted. Bit Sharpener placed and uterine monitors on thepatient. Patient [...] scant bloody mucus in toilet when voided. [place] on toilet tissue. Dr. Cyr notified of [...] 145. VSS, Plan of Care - Carol Csatle RN - 12/12/2016 10:57 AM CDT Problem: [...] gum. Pt declines at this time. With social media community manager at this time. Pt declines a nicotine [...] within reach. Pt states understanding to put loom control chain builder light if any change in condition. Plan [...] Overview Goal: Plan of Care/Patient Progress Review [facility] PT Patient plan for discharge: Home Current [...] to her s/o. [facility]. Pt is comfortable. [...] within reach. Pt states understanding to put loom control chain builder light if any changes in condition. Plan [...] orintensity. Abdomen palpates soft, and toco didn't chart picker any contractions. FHT: mod variability with [...] Care Luis Camara DPM [address] [place], [place] [id number] (Wo rk) 01/21/2022 Office Visit Gastroenterology Juanis Levi [address] [place] [address] Luis Fernando Miles MD [address] [address] Pending Results Name Type Priority Associated Date/Time Diagnoses Transfuse red blood Nursing Transfusion STAT 1 02/24/2016 8:10 cell unit PM WINCH DERRICK OPERATOR Transfuse red blood Nursing Transfusion STAT 1 02/24/2016 8:15 cell unit PM WINCH DERRICK OPERATOR Transfuse plasma unit Nursing Transfusion Routine 12/24/2016 8:48 PM WINCH DERRICK OPERATOR Transfuse red blood Nursing Transfusion STAT 1 02/24/2016 8:42 cell unit PM WINCH DERRICK OPERATOR Transfuse red blood Nursing Transfusion STAT 1 02/24/2016 9:30 cell unit PM WINCH DERRICK OPERATOR Transfuse red blood Nursing Transfusion STAT 02/24/2016 8:59 cell unit PM WINCH DERRICK OPERATOR Transfuse red blood Nursing Transfusion STAT 1 02/24/2016 8:58 cell unit PM WINCH DERRICK OPERATOR Transfuse red blood Nursing Transfusion STAT 02/24/2016 8:47 cell unit PM WINCH DERRICK OPERATOR Placenta path order and Lab Routine 08/2016 8:05 indications PM WINCH DERRICK OPERATOR Transfuse platelets Nursing Transfusion Routine 1 02/24/2016 9:19 unit PM WINCH DERRICK OPERATOR Transfuse red blood Nursing Transfusion STAT 02/24/2016 10:15 cell unit PM WINCH DERRICK OPERATOR Transfuse red blood Nursing Transfusion STAT 02/24/2016 10:50 cell unit PM WINCH DERRICK OPERATOR Transfuse red blood Nursing Transfusion STAT 1 02/24/2016 9:56 cell unit PM WINCH DERRICK OPERATOR Cryoprecipitate prepare Blood Bank Routine Chronic hepatitis 12/24/2016 10:59 order unit C without hepatic PM WINCH DERRICK OPERATOR coma (H) Transfuse Nursing Transfusion Routine 12/25/19 17 11:10 cryoprecipitate unit PM WINCH DERRICK OPERATOR Scheduled Referrals Name Type Priority Associated Diagnoses Order S chedule GASTROENTEROLOGY ADULT REF Referral Routine Chronic hepati tis C Ordered: 12/26/2016 CONSULT ONLY without hepatic coma (H) DENTAL REFERRAL Referral Routine Dental caries Ordered: documented as of this encounter Procedures Procedure Name Priority Date/Time Associated Comments Diagnosis CBC WITH PLATELETS Routine 12/26/2016 8:10 Chronic hepatitis R esults for this AM WINCH DERRICK OPERATOR C without hepatic procedure are in coma (H) the results section. CBC WITH PLATELETS Timed 12/25/2016 2:04 Chronic hepatitis R esults for this PM WINCH DERRICK OPERATOR C without hepatic procedure are in coma (H) the results section. INR Timed 12/25/2016 7:00 Chronic hepatitis Results for this AM WINCH DERRICK OPERATOR C without hepatic procedure are in coma (H) the results section. PARTIAL THROMBOPLASTIN Timed 12/25/2016 7:00 Chronic hepatit is Results for this TIME AM WINCH DERRICK OPERATOR C without hepatic procedure are in coma (H) the results section. MAGNESIUM Timed 12/25/2016 7:00 Chronic hepatitis Results for this AM WINCH DERRICK OPERATOR C without hepatic procedure are in coma (H) the results section. FIBRINOGEN ACTIVITY Timed 12/25/2016 7:00 Chronic hepatitis Results for this AM WINCH DERRICK OPERATOR C without hepatic procedure are in coma (H) the results section. BASIC METABOLIC PANEL Timed 12/25/2016 7:00 Chronic hepatiti s Results for this AM WINCH DERRICK OPERATOR C without hepatic procedure are in coma (H) the results section. CBC WITH PLATELETS Timed 12/25/2016 7:00 Chronic hepatitis R esults for this AM WINCH DERRICK OPERATOR C without hepatic procedure are in coma (H) the results section. INR Routine 12/25/2016 12:54 Chronic hepatitis Result s for this AM WINCH DERRICK OPERATOR C without hepatic procedure are in coma (H) the results section. PARTIAL THROMBOPLASTIN Routine 12/25/2016 12:54 Chronic hepati tis Results for this TIME AM WINCH DERRICK OPERATOR C without hepatic procedure are in coma (H) the results section. FIBRINOGEN ACTIVITY Routine 12/25/2016 12:54 Chronic hepatitis Results for this AM WINCH DERRICK OPERATOR C without hepatic procedure are in coma (H) the results section. BASIC METABOLIC PANEL Routine 12/25/2016 12:54 Chronic hepatit is Results for this AM WINCH DERRICK OPERATOR C without hepatic procedure are in coma (H) the results section. CBC WITH PLATELETS Routine 12/25/2016 12:54 Chronic hepatitis Results for this AM WINCH DERRICK OPERATOR C without hepatic procedure are in coma (H) the results section. XR ABDOMEN PORT 1 VIEW STAT 12/24/2016 11:10 R esults for this PM WINCH DERRICK OPERATOR procedure are i n the results section. TRANSFUSE Routine 12/24/2016 11:10 CRYOPRECIPITATE UNIT PM WINCH DERRICK OPERATOR BLOOD COMPONENT Routine 12/24/2016 10:59 Chronic hepatitis Res ults for this PM WINCH DERRICK OPERATOR C without hepatic procedure are in coma (H) the results section. PREPARE CRYOPRECIPITATE Routine 12/24/2016 10:59 Chronic hepat itis (SINGLE UNIT) PM WINCH DERRICK OPERATOR C without hepatic coma (H) TRANSFUSE RED BLOOD CELL STAT 12/24/2016 10:50 UNIT PM WINCH DERRICK OPERATOR ARTERIAL PANEL Routine 12/24/2016 10:45 Chronic hepatitis Resu lts for this PM WINCH DERRICK OPERATOR C without hepatic procedure are in coma (H) the results section. TRANSFUSE RED BLOOD CELL STAT 12/24/2016 10:15 UNIT PM WINCH DERRICK OPERATOR SURGICAL PATHOLOGY EXAM Routine 12/24/2016 10:13 Results for this PM WINCH DERRICK OPERATOR procedure are i n the results section. TRANSFUSE RED BLOOD CELL STAT 12/24/2016 9:56 UNIT PM WINCH DERRICK OPERATOR ARTERIAL PANEL Routine 12/24/2016 9:50 Chronic hepatitis Resul ts for this PM WINCH DERRICK OPERATOR C without hepatic procedure are in coma (H) the results section. INR Routine 12/24/2016 9:50 Chronic hepatitis Results for this PM WINCH DERRICK OPERATOR C without hepatic procedure are in coma (H) the results section. PARTIAL THROMBOPLASTIN Routine 12/24/2016 9:50 Chronic hepatit is Results for this TIME PM WINCH DERRICK OPERATOR C without hepatic procedure are in coma (H) the results section. FIBRINOGEN ACTIVITY Routine 12/24/2016 9:50 Chronic hepatitis Results for this PM WINCH DERRICK OPERATOR C without hepatic procedure are in coma (H) the results section. CBC WITH PLATELETS Routine 12/24/2016 9:50 Chronic hepatitis R esults for this PM WINCH DERRICK OPERATOR C without hepatic procedure are in coma (H) the results section. TRANSFUSE RED BLOOD CELL STAT 12/24/2016 9:30 UNIT PM WINCH DERRICK OPERATOR ARTERIAL PANEL Routine 12/24/2016 9:20 Chronic hepatitis Resul ts for this PM WINCH DERRICK OPERATOR C without hepatic procedure are in coma (H) the results section. TRANSFUSE PLATELETS UNIT Routine 12/24/2016 9:19 PM WINCH DERRICK OPERATOR TRANSFUSE RED BLOOD CELL STAT 12/24/2016 8:59 UNIT PM WINCH DERRICK OPERATOR TRANSFUSE RED BLOOD CELL STAT 12/24/2016 8:58 UNIT PM WINCH DERRICK OPERATOR TRANSFUSE PLASMA UNIT Routine 12/24/2016 8:48 PM WINCH DERRICK OPERATOR TRANSFUSE RED BLOOD CELL STAT 12/24/2016 8:47 UNIT PM WINCH DERRICK OPERATOR BLOOD COMPONENT Routine 12/24/2016 8:45 Chronic hepatitis Resu lts for this PM WINCH DERRICK OPERATOR C without hepatic procedure are in coma (H) the results section. BLOOD COMPONENT Routine 12/24/2016 8:45 Chronic hepatitis Resu lts for this PM WINCH DERRICK OPERATOR C without hepatic procedure are in coma (H) the results section. PREPARE PLATELETS ORDER Routine 12/24/2016 8:45 Chronic hepati tis Results for this UNIT PM WINCH DERRICK OPERATOR C without hepatic procedure are in coma (H) the results section. ARTERIAL PANEL Routine 12/24/2016 8:44 Chronic hepatitis Resul ts for this PM WINCH DERRICK OPERATOR C without hepatic procedure are in coma (H) the results section. INR Routine 12/24/2016 8:44 Chronic hepatitis Results for this PM WINCH DERRICK OPERATOR C without hepatic procedure are in coma (H) the results section. PARTIAL THROMBOPLASTIN Routine 12/24/2016 8:44 Chronic hepatit is Results for this TIME PM WINCH DERRICK OPERATOR C without hepatic procedure are in coma (H) the results section. FIBRINOGEN ACTIVITY Routine 12/24/2016 8:44 Chronic hepatitis Results for this PM WINCH DERRICK OPERATOR C without hepatic procedure are in coma (H) the results section. CBC WITH PLATELETS Routine 12/24/2016 8:44 Chronic hepatitis R esults for this PM WINCH DERRICK OPERATOR C without hepatic procedure are in coma (H) the results section. TRANSFUSE RED BLOOD CELL STAT 12/24/2016 8:42 UNIT PM WINCH DERRICK OPERATOR ARTERIAL PANEL Routine 12/24/2016 8:25 Chronic hepatitis Resul ts for this PM WINCH DERRICK OPERATOR C without hepatic procedure are in coma (H) the results section. PLACENTA PATH ORDER AND Routine 12/24/2016 8:05 INDICATIONS PM WINCH DERRICK OPERATOR BLOOD COMPONENT Routine 12/24/2016 7:25 Chronic hepatitis Resu lts for this PM WINCH DERRICK OPERATOR C without hepatic procedure are in coma (H) the results section. BLOOD COMPONENT Routine 12/24/2016 7:25 Chronic hepatitis Resu lts for this PM WINCH DERRICK OPERATOR C without hepatic procedure are in coma (H) the results section. BLOOD COMPONENT Routine 12/24/2016 7:25 Chronic hepatitis Resu lts for this PM WINCH DERRICK OPERATOR C without hepatic procedure are in coma (H) the results section. BLOOD COMPONENT Routine 12/24/2016 7:25 Chronic hepatitis Resu lts for this PM WINCH DERRICK OPERATOR C without hepatic procedure are in coma (H) the results section. BLOOD COMPONENT Routine 12/24/2016 7:25 Chronic hepatitis Resu lts for this PM WINCH DERRICK OPERATOR C without hepatic procedure are in coma (H) the results section. BLOOD COMPONENT Routine 12/24/2016 7:25 Chronic hepatitis Resu lts for this PM WINCH DERRICK OPERATOR C without hepatic procedure are in coma (H) the results section. BLOOD COMPONENT Routine 12/24/2016 7:25 Chronic hepatitis Resu lts for this PM WINCH DERRICK OPERATOR C without hepatic procedure are in coma (H) the results section. BLOOD COMPONENT Routine 12/24/2016 7:25 Chronic hepatitis Resu lts for this PM WINCH DERRICK OPERATOR C without hepatic procedure are in coma (H) the results section. PREPARE PLASMA (UNIT) Routine 12/24/2016 7:25 Chronic hepatiti s Results for this PM WINCH DERRICK OPERATOR C without hepatic procedure are in coma (H) the results section. HYSTERECTOMY, FOLLOWING 12/24/2016 7:24 SECTION PM WINCH DERRICK OPERATOR CBC WITH PLATELETS & STAT 12/24/2016 7:06 Chronic hepatitis Results for this DIFFERENTIAL PM WINCH DERRICK OPERATOR C without hepatic procedure are in coma (H) the results section. ROUTINE UA WITH Routine 12/24/2016 7:50 Chronic hepatitis Resu lts for this MICROSCOPIC REFLEX TO AM WINCH DERRICK OPERATOR C without hepatic p rocedure are in CULTURE coma (H) the results section. URINE CULTURE Routine 12/24/2016 7:50 Chronic hepatitis Result s for this AM WINCH DERRICK OPERATOR C without hepatic procedure are in coma (H) the results section. WET PREPARATION Routine 12/23/2016 11:53 Chronic hepatitis Res ults for this PM WINCH DERRICK OPERATOR C without hepatic procedure are in coma (H) the results section. MFM BPP SINGLE Routine 12/23/2016 8:37 Results fo r this AM WINCH DERRICK OPERATOR procedure are i n the results section. BLOOD COMPONENT Routine 12/23/2016 6:54 Chronic hepatitis Resu lts for this AM WINCH DERRICK OPERATOR C without hepatic procedure are in coma (H) the results section. BLOOD COMPONENT Routine 12/23/2016 6:54 Chronic hepatitis Resu lts for this AM WINCH DERRICK OPERATOR C without hepatic procedure are in coma (H) the results section. BLOOD COMPONENT Routine 12/23/2016 6:54 Chronic hepatitis Resu lts for this AM WINCH DERRICK OPERATOR C without hepatic procedure are in coma (H) the results section. BLOOD COMPONENT Routine 12/23/2016 6:54 Chronic hepatitis Resu lts for this AM WINCH DERRICK OPERATOR C without hepatic procedure are in coma (H) the results section. BLOOD COMPONENT Routine 12/23/2016 6:54 Chronic hepatitis Resu lts for this AM WINCH DERRICK OPERATOR C without hepatic procedure are in coma (H) the results section. BLOOD COMPONENT Routine 12/23/2016 6:54 Chronic hepatitis Resu lts for this AM WINCH DERRICK OPERATOR C without hepatic procedure are in coma (H) the results section. BLOOD COMPONENT Routine 12/23/2016 6:54 Chronic hepatitis Resu lts for this AM WINCH DERRICK OPERATOR C without hepatic procedure are in coma (H) the results section. BLOOD COMPONENT Routine 12/23/2016 6:54 Chronic hepatitis Resu lts for this AM WINCH DERRICK OPERATOR C without hepatic procedure are in coma (H) the results section. BLOOD COMPONENT Routine 12/23/2016 6:54 Chronic hepatitis Resu lts for this AM WINCH DERRICK OPERATOR C without hepatic procedure are in coma (H) the results section. BLOOD COMPONENT Routine 12/23/2016 6:54 Chronic hepatitis Resu lts for this AM WINCH DERRICK OPERATOR C without hepatic procedure are in coma (H) the results section. BLOOD COMPONENT Routine 12/23/2016 6:54 Chronic hepatitis Resu lts for this AM WINCH DERRICK OPERATOR C without hepatic procedure are in coma (H) the results section. BLOOD COMPONENT Routine 12/23/2016 6:54 Chronic hepatitis Resu lts for this AM WINCH DERRICK OPERATOR C without hepatic procedure are in coma (H) the results section. ABO/RH TYPE AND SCREEN Routine 12/23/2016 6:54 Chronic hepatit is Results for this AM WINCH DERRICK OPERATOR C without hepatic procedure are in coma (H) the results section. ABO/RH TYPE AND SCREEN Timed 12/20/2016 10:48 Chronic hepati tis Results for this AM CDT C without hepatic procedure are in coma (H) the results section. [facility] BPP SINGLE Routine 12/19/2016 8:46 Results fo r this AM CDT procedure are i n the results section. ABO/RH TYPE AND SCREEN Timed 12/17/2016 6:54 Chronic hepatit is Results for this AM CDT C without hepatic procedure are in coma (H) the results section. [facility] US OB LIMITED Routine 12/16/2016 9:24 Results [...] procedure are i n the results section. [facility] US OB LIMITED Routine 12/12/2016 8:36 Results for this SINGLE/MULTIPLE AM CDT procedure ar e in the results section. ABO/RH TYPE AND SCREEN Timed 12/11/2016 9:05 Re sults for this AM CDT procedure are i n the results section. ECHO COMPLETE* Routine 12/10/2016 9:05 Resu lts for this AM CDT procedure are i n the results section. MF US COMPREHENSIVE Routine 12/08/2016 9:52 Resu lts [...] (ABNORMAL) CBC with platelets (12/26/2016 8:10 AM WINCH DERRICK OPERATOR) [facility] Method Time Signature WBC 8.5 4.0 - 11.0 12/26/2016 [facility] 10e9/L 8:20 AM [facility] RBC Count 3.19 (L) 3.8 - 5.2 12/26/2016 [facility] 10e12/L 8:20 AM [facility] Hemoglobin 9.2 (L) 11.7 - 12/26/2016 [facility] 15.7 g/dL 8:20 AM [facility] Hematocrit 27.2 (L) 35.0 - 12/26/2016 [facility] 47.0 % 8:20 AM [facility] MCV 85 78 - 100 12/26/2016 [facility] fl 8:20 AM [facility] MCH 28.8 26.5 - 12/26/2016 [facility] 33.0 pg 8:20 AM [facility] MCHC 33.8 31.5 - 12/26/2016 [facility] 36.5 g/dL 8:20 AM [facility] RDW 14.7 10.0 - 12/26/2016 [facility] 15.0 % 8:20 AM [facility] Platelet Count 144 (L) 150 - 450 12/26/2016 [facility] 10e9/L 8:20 AM [facility] Specimen Anatomical Collection Method Collection Time Receive d Time (Source) Location / / Volume Laterality Blood specimen 12/26/2016 8:10 AM 017 8:12 (specimen) WINCH DERRICK OPERATOR AM WINCH DERRICK OPERATOR Kayla Davidson MD LAB - BLOOD ORDERABLES Performing Organization Address City/State/ZIP Code Phon e Number [place] [id number] [place] [address] [facility] [place] CBC with platelets (12/25/2016 2:04 PM WINCH DERRICK OPERATOR) Patholo gist Method Time Signature WBC 9.7 4.0 - 11.0 12/25/2016 [facility] 10e9/L 2:10 PM [facility] RBC Count 3.45 (L) 3.8 - 5.2 12/25/2016 [facility] 10e12/L 2:10 PM [facility] Hemoglobin 10.1 (L) 11.7 - 12/25/2016 [facility] 15.7 g/dL 2:10 PM [facility] Hematocrit 28.8 (L) 35.0 - 12/25/2016 [facility] 47.0 % 2:10 PM [facility] MCV 84 78 - 100 12/25/2016 [facility] fl 2:10 PM [facility] MCH 29.3 26.5 - 12/25/2016 [facility] 33.0 pg 2:10 PM [facility] MCHC 35.1 31.5 - 12/25/2016 [facility] 36.5 g/dL 2:10 PM [facility] RDW 14.4 10.0 - 12/25/2016 [facility] 15.0 % 2:10 PM [facility] Platelet Count 142 (L) 150 - 450 12/25/2016 [facility] 10e9/L 2:10 PM [facility] Specimen Anatomical Collection Method Collection Time Receive d Time (Source) Location / / Volume Laterality Blood specimen 12/25/2016 2:04 PM 017 2:08 (specimen) WINCH DERRICK OPERATOR PM WINCH DERRICK OPERATOR So Nunez MD LAB - BLOOD ORDERABLES Performing Organization Address City/State/ZIP Code Phon e Number [place] [phone] [place] [address] [facility] [place]NORM[place] Magnesium (12/25/2016 7:00 AM WINCH DERRICK OPERATOR) P athologist Signature Magnesium 1.5 (L) 1.6 - 2.3 12/25/2016 [facility] mg/dL 8:07 AM [facility] Specimen Anatomical Collection Method Collection Time Receive d Time (Source) Location / / Volume Laterality Blood specimen 12/25/2016 7:00 AM 017 7:06 (specimen) WINCH DERRICK OPERATOR AM WINCH DERRICK OPERATOR So Nunez MD LAB - BLOOD ORDERABLES Performing Organization Address City/State/ZIP Code Phon e Number [facility] [address] [place] [address] [facility] (ABNORMAL) Basic metabolic panel (12/25/2016 7:00 AM WINCH DERRICK OPERATOR) [facility] Method Time Signature Sodium 139 133 - 144 12/25/2016 [facility] mmol/L 8:13 AM [facility] Potassium 3.8 3.4 - 5.3 12/25/2016 [facility] mmol/L 8:13 AM [facility] Chloride 108 94 - 109 12/25/2016 [facility] mmol/L 8:13 AM [facility] Carbon Dioxide 21 20 - 32 12/25/2016 [facility] mmol/L 8:13 AM [facility] Anion Gap 10 3 - 14 12/25/2016 [facility] mmol/L 8:13 AM [facility] Glucose 133 (H) 70 - 99 12/25/2016 [facility] mg/dL 8:13 AM [facility] Urea Nitrogen 5 (L) 7 - 30 12/25/2016 [facility] mg/dL 8:13 AM [facility] Creatinine 0.51 (L) 0.52 - 12/25/2016 [facility] 1.04 mg/dL 8:13 AM [facility] GFR Estimate >90 >60 12/25/2016 [facility] mL/min/1.7 8:[address] Comment: Non GFR Calc GFR Estimate If >90 >60 mL/min/1.7m2 12/25/2016 8:13 A M [facility] Black [facility] Comment: GFR Calc Calcium 7.6 (L) 8.5 - 10.1 mg/dL 12/25/2016 8:13 AM [facility] Specimen Anatomical Collection Method Collection Time Receive d Time (Source) Location / / Volume Laterality Blood specimen 12/25/2016 7:00 AM 017 7:07 (specimen) WINCH DERRICK OPERATOR AM WINCH DERRICK OPERATOR Petrona Barone DO LAB - BLOOD ORDERABLES Performing Organization Address City/State/ZIP Code Phon e Number [address] [address] [facility] Fibrinogen activity (12/25/2016 7:00 AM WINCH DERRICK OPERATOR) P athologist Signature Fibrinogen 398 200 - 420 12/25/2016 [facility] mg/dL 7:58 AM [facility] Specimen Anatomical Collection Method Collection Time Receive d Time (Source) Location / / Volume Laterality Blood specimen 12/25/2016 7:00 AM 017 7:07 (specimen) WINCH DERRICK OPERATOR AM WINCH DERRICK OPERATOR Petrona Barone DO LAB - BLOOD ORDERABLES Performing Organization Address City/[facility]/ZIP Code Phon e Number [address] [address] [facility] Partial thromboplastin time (12/25/2016 7:00 AM WINCH DERRICK OPERATOR) athologist Signature PTT 28 22 - 37 sec 12/25/2016 [facility] 7:58 AM [facility] Specimen Anatomical Collection Method Collection Time Receive d Time (Source) Location / / Volume Laterality Blood specimen 12/25/2016 7:00 AM 017 7:07 (specimen) WINCH DERRICK OPERATOR AM WINCH DERRICK OPERATOR Petrona Barone DO LAB - BLOOD ORDERABLES Performing Organization Address City/[facility]/ZIP Code Phon e Number [address] [address] [facility] INR (12/25/2016 7:00 AM WINCH DERRICK OPERATOR) P athologist Signature INR 1.06 0.86 - 1.14 12/25/2016 [facility] 7:58 AM [facility] Specimen Anatomical Collection Method Collection Time Receive d Time (Source) Location / / Volume Laterality Blood specimen 12/25/2016 7:00 AM 017 7:07 (specimen) WINCH DERRICK OPERATOR AM WINCH DERRICK OPERATOR Petrona Barone DO LAB - BLOOD ORDERABLES Performing Organization Address City/[facility]/ZIP Code Phon e Number [address] [address] [facility] (ABNORMAL) CBC with platelets (12/25/2016 7:00 AM WINCH DERRICK OPERATOR) Patholo gist Method Time Signature WBC 12.7 (H) 4.0 - 11.0 12/25/2016 [facility] 10e9/L 7:51 AM [facility] RBC Count 4.05 3.8 - 5.2 12/25/2016 [facility] 10e12/L 7:51 AM [facility] Hemoglobin 11.5 (L) 11.7 - 12/25/2016 [facility] 15.7 g/dL 7:51 AM [facility] Hematocrit 33.8 (L) 35.0 - 12/25/2016 [place] [facility] 47.0 % 7:51 AM [facility] MCV 84 78 - 100 12/25/2016 [place] fl 7:51 AM [facility] MCH 28.4 26.5 - 12/25/2016 [facility] 33.0 pg 7:51 AM [facility] MCHC 34.0 31.5 - 12/25/2016 [facility] 36.5 g/dL 7:51 AM [facility] RDW 14.0 10.0 - 12/25/2016 [place] [facility] 15.0 % 7:51 AM [facility] Platelet Count 160 150 - 450 12/25/2016 [facility] 10e9/L 7:51 AM [facility] Specimen Anatomical Collection Method Collection Time Receive d Time (Source) Location / / Volume Laterality Blood specimen 12/25/2016 7:00 AM 017 7:07 (specimen) WINCH DERRICK OPERATOR AM WINCH DERRICK OPERATOR Petrona Barone DO LAB - BLOOD ORDERABLES Performing Organization Address City/[facility] Code Phon e Number [facility] [address] [place] [address] [facility] Partial thromboplastin time (12/25/2016 12:54 AM WINCH DERRICK OPERATOR) P athologist Signature PTT 28 22 - 37 sec 12/25/2016 [facility] 1:52 AM [facility] Specimen Anatomical Collection Method Collection Time Receive d Time (Source) Location / / Volume Laterality Blood specimen 12/25/2016 12:54 7 1:10 (specimen) AM WINCH DERRICK OPERATOR AM WINCH DERRICK OPERATOR Nora Torres MD LAB - BLOOD ORDERABLES Performing Organization Address City/State/ZIP Code Phon e Number [address] [address] [facility] INR (12/25/2016 12:54 AM WINCH DERRICK OPERATOR) athologist Signature INR 1.11 0.86 - 1.14 12/25/2016 [facility] 1:52 AM [facility] Specimen Anatomical Collection Method Collection Time Receive d Time (Source) Location / / Volume Laterality Blood specimen 12/25/2016 12:54 7 1:10 (specimen) AM WINCH DERRICK OPERATOR AM WINCH DERRICK OPERATOR Nora Torres MD LAB - BLOOD ORDERABLES Performing Organization Address City/State/ZIP Code Phon e Number [address] [address] [facility] Fibrinogen activity (12/25/2016 12:54 AM WINCH DERRICK OPERATOR) athologist Signature Fibrinogen 338 200 - 420 12/25/2016 [place] [facility] mg/dL 1:52 AM [facility] Specimen Anatomical Collection Method Collection Time Receive d Time (Source) Location / / Volume Laterality Blood specimen 12/25/2016 12:54 7 1:10 (specimen) AM WINCH DERRICK OPERATOR AM WINCH DERRICK OPERATOR Nora Torres MD LAB - BLOOD ORDERABLES Performing Organization Address City/State/ZIP Code Phon e Number [address] [address] [facility] ([place]NORMAL) CBC with platelets (12/25/2016 12:54 AM WINCH DERRICK OPERATOR) Analysis Performed At Patho logist Time Signature WBC 11.0 4.0 - 11.0 12/25/2016 [facility] 10e9/L 1:42 AM [facility] RBC Count 4.22 3.8 - 5.2 12/25/2016 [facility] 10e12/L 1:42 AM [facility] Hemoglobin 12.2 11.7 - 12/25/2016 [facility] 15.7 g/dL 1:42 AM [facility] Hematocrit 35.9 35.0 - 12/25/2016 [facility] 47.0 % 1:42 AM [facility] MCV 85 78 - 100 12/25/2016 [facility] 1:42 AM [facility] MCH 28.9 26.5 - 12/25/2016 [facility] 33.0 pg 1:42 AM [facility] MCHC 34.0 31.5 - 12/25/2016 [facility] 36.5 g/dL 1:42 AM [facility] RDW 13.6 10.0 - 12/25/2016 [facility] 15.0 % 1:42 AM [facility] Platelet Count 149 (L) 150 - 450 12/25/2016 [facility] 10e9/L 1:42 AM [facility] Specimen Anatomical Collection Method Collection Time Receive d Time (Source) Location / / Volume Laterality Blood specimen 12/25/2016 12:54 7 1:10 (specimen) AM WINCH DERRICK OPERATOR AM WINCH DERRICK OPERATOR Nora Torres MD LAB - BLOOD ORDERABLES Performing Organization Address City/State/ZIP Code Phon e Number [facility] [address] [place] [address] [facility] (ABNORMAL) Basic metabolic panel (12/25/2016 12:54 AM WINCH DERRICK OPERATOR) Analysis Performed At Patho logist Time Signature Sodium 142 133 - 144 12/25/2016 [facility] mmol/L 1:49 AM [facility] Potassium 4.0 3.4 - 5.3 12/25/2016 [facility] mmol/L 1:49 AM [facility] Chloride 113 (H) 94 - 109 12/25/2016 [facility] mmol/L 1:49 AM [facility] Carbon Dioxide 22 20 - 32 12/25/2016 [facility] mmol/L 1:49 AM [facility] Anion Gap 7 3 - 14 12/25/2016 [facility] mmol/L 1:49 AM [facility] Glucose 147 (H) 70 - 99 12/25/2016 [facility] mg/dL 1:49 AM [facility] Urea Nitrogen 6 (L) 7 - 30 12/25/2016 [facility] mg/dL 1:49 AM [facility] Creatinine 0.54 0.52 - 12/25/2016 [facility] 1.04 mg/dL 1:49 AM [facility] GFR Estimate >90 >60 12/25/2016 [facility] mL/min/1.7 1:[address] Comment: Non GFR Calc GFR Estimate If >90 >60 mL/min/1.7m2 12/25/2016 1:49 A M [facility] Black [facility] Comment: GFR Calc Calcium 8.0 (L) 8.5 - 10.1 mg/dL 12/25/2016 1:49 AM WINCH DERRICK OPERATOR [facility] Specimen Anatomical Collection Method Collection Time Receive d Time (Source) Location / / Volume Laterality Blood specimen 12/25/2016 12:54 7 1:10 (specimen) AM WINCH DERRICK OPERATOR AM WINCH DERRICK OPERATOR Nora Torres MD LAB - BLOOD ORDERABLES Performing Organization Address City/State/ZIP Code Phon e Number [facility] [address] [place] [address] [facility] XR Abdomen Port 1 View (12/24/2016 11:10 PM WINCH DERRICK OPERATOR) Anatomical Region Laterality Modality Abdomen/Pelvis Computed Radiography Specimen (Source) Anatomical Location Collection Method / Collectio n Time Received Time / Laterality Volume Impressions 12/24/2016 11:52 PM WINCH DERRICK OPERATOR IMPRESSION: No radiopaque foreign objects are present in the visualized portion of the abdomen and pe lvis. CHEIKH COURTNEY MD Narrative 12/24/2016 11:52 PM WINCH DERRICK OPERATOR ABDOMEN SINGLE VIEW ??12/24/2016 11:10 PM HISTORY: [...] ORDER JEFFERY Blood component (12/24/2016 10:59 PM WINCH DERRICK OPERATOR) Component Value Ref Test Analysis Performed At [facility] Range Method Time Signature Unit Number [id number] 12/24/2016 [facility] 11:06 PM [facility] Blood 5 cryoprecipitate 12/24/2016 [facility] Component units pooled 11:06 PM MD MEDICAL [facility] 00 12/24/2016 [facility] Number 11:06 PM [facility] Status of Released to care 12/24/2016 [facility] F Unit unit 11:58 PM [facility] Blood [id number] 12/24/2016 [facility] Product Code 11:06 PM [facility] Unit Status ISS [facility] Specimen Anatomical Collection Method Collection Time Receive d Time (Source) Location / / Volume Laterality 12/24/2016 10:59 12/24/2016 PM WINCH DERRICK OPERATOR 11:04 PM WINCH DERRICK OPERATOR Nora Leyva MD LABORATORY Performing Organization Address City/State/ZIP Code Phon e Number [facility] [address] [place] [address] [facility] [address] [place] [address] [facility] (ABNORMAL) Arterial Panel (12/24/2016 10:45 PM WINCH DERRICK OPERATOR) [facility] Method Time Signature pH Arterial 7.35 7.35 - 12/24/2016 [facility] 7.45 pH 10:57 PM [facility] pCO2 Arterial 36 35 - 45 mm 12/24/2016 [facility] Hg 10:57 PM [facility] pO2 Arterial 207 (H) 80 - 105 12/24/2016 [facility] mm Hg 10:57 PM [facility] Bicarbonate 20 (L) 21 - 28 12/24/2016 [facility] Arterial mmol/L 10:57 PM [facility] Base Deficit Art 4.9 mmol/L 12/24/2016 [facility] F 10:57 PM [facility] Comment: Reference range: -9.0 to 1.8 FIO2 50 12/24/2016 10:50 PM [facility] Sodium 135 133 - 144 12/24/2016 10:57 PM [facility] mmol/L [facility] Potassium 4.0 3.4 - 5.3 12/24/2016 10:57 PM [facility] mmol/L [facility] Hemoglobin 10.1 (L) 11.7 - 15.7 12/24/2016 10:57 PM [facility] MD g/dL [facility] Glucose 161 (H) 70 - 99 mg/dL 12/24/2016 10:57 PM [facility] Calcium Ionized 5.1 4.4 - 5.2 12/24/2016 10:57 PM [facility] Whole Blood mg/dL WINCH DERRICK OPERATOR [facility] Specimen Anatomical Collection Method Collection Time Receive d Time (Source) Location / / Volume Laterality 12/24/2016 10:45 12/24/2016 PM WINCH DERRICK OPERATOR 10:49 PM WINCH DERRICK OPERATOR Nora Leyva MD LAB - BLOOD ORDERABLES Performing Organization Address City/State/ZIP Code Phon e Number [facility] [address] [place] [address] [facility] Surgical pathology exam (12/24/2016 10:13 PM WINCH DERRICK OPERATOR) Component Value Ref Test Analysis Performed Pathologis t Range Method Time At Signature Copath Patient Name: DEANN KING Report MR#: [id number] Specimen #: [id number] Collected: 12/24/2016 Received: 12/25/2016 Reported: 12/31/2016 10:03 [...] Electronically signed out by: Moshe Isaac M.D., [facility] CLINICAL HISTORY: 36-year-old admitted at 27-1/7 weeks' [...] fundus to cervix, 8.0 cm anterior to arts and sciences dean ior, and 9.5 cm cornu to cornu. [...] endometrium is irregular-shaped. No masses are identified. [employer] sections are submitted. Summary of Sections: A1 [...] fallopian tube wi th a pin-point lumen. [employer] sections are submitted in ca ssette B1. [...] fallopian tube wi th a pin-point lumen. [employer]ist sections are submitted in ca ssette C1. [...] measuring 2.0 x 2.0 x 1.2 cm. [employer] sections are submitted as follows: Summary of [...] The section submitted as possible thrombus at [facility] shows a remote retroplacental hematoma. CPT Codes: A: 65656-KB5, 78645-FDX, 51503-FTH B: 42261-MG3 C: 01123-JH8 D: 79588-TW3 TESTING LAB LOCATION: [address] [id number] COLLECTION SITE: Client: [facility] Location: [facility] (B) Specimen (Source) Anatomical Collection Method Collection Time Re ceived Time Location / / Volume Laterality Tissue specimen UTERUS AND CERVIX, 12/24/2016 10:13 (specimen) CS / Unknown PM WINCH DERRICK OPERATOR Tissue specimen STRUCTURE OF RIGHT 12/24/2016 10:14 (specimen) FALLOPIAN TUBE / PM WINCH DERRICK OPERATOR Unknown Tissue specimen STRUCTURE OF LEFT 12/24/2016 10:14 (specimen) FALLOPIAN TUBE / PM WINCH DERRICK OPERATOR Unknown So [facility] Performing Organization Address City/State/ZIP Code Phon e Number [place] Partial thromboplastin time (12/24/2016 9:50 PM WINCH DERRICK OPERATOR) athologist Signature PTT 33 22 - 37 sec 12/24/2016 [facility] 10:05 PM [facility] Specimen Anatomical Collection Method Collection Time Receive d Time (Source) Location / / Volume Laterality 12/24/2016 9:50 PM 7 9:52 WINCH DERRICK OPERATOR PM WINCH DERRICK OPERATOR Nora Leyva MD LAB - BLOOD ORDERABLES Performing Organization Address City/[facility]/ZIP Code Phon e Number [address] [address] [facility] (ABNORMAL[place] INR (12/24/2016 9:50 PM WINCH DERRICK OPERATOR) P athologist Signature INR 1.50 (H) 0.86 - 1.14 12/24/2016 [facility] 10:05 PM [facility] Specimen Anatomical Collection Method Collection Time Receive d Time (Source) Location / / Volume Laterality 12/24/2016 9:50 PM 7 9:52 WINCH DERRICK OPERATOR PM WINCH DERRICK OPERATOR Nora Leyva MD LAB - BLOOD ORDERABLES Performing Organization Address City/[facility]/ZIP Code Phon e Number [address] [address] [facility] (ABNORMAL) Fibrinogen activity (12/24/2016 9:50 PM WINCH DERRICK OPERATOR) P athologist Signature Fibrinogen 189 (L) 200 - 420 12/24/2016 [facility] mg/dL 10:05 PM [facility] Specimen Anatomical Collection Method Collection Time Receive d Time (Source) Location / / Volume Laterality 12/24/2016 9:50 PM 7 9:52 WINCH DERRICK OPERATOR PM WINCH DERRICK OPERATOR Nora Leyva MD LAB - BLOOD ORDERABLES Performing Organization Address City/State/ZIP Code Phon e Number [address] [address] [facility] (ABNORMAL) CBC with platelets (12/24/2016 9:50 PM WINCH DERRICK OPERATOR) Patholo gist Method Time Signature WBC 10.3 4.0 - 11.0 12/24/2016 [facility] 10e9/L 9:58 PM [facility] RBC Count 2.61 (L) 3.8 - 5.2 12/24/2016 [facility] 10e12/L 9:58 PM [facility] Hemoglobin 7.5 (L) 11.7 - 12/24/2016 [facility] 15.7 g/dL 9:58 PM [facility] Hematocrit 23.1 (L) 35.0 - 12/24/2016 [facility] 47.0 % 9:58 PM [facility] MCV 89 78 - 100 12/24/2016 [facility] fl 9:58 PM [facility] MCH 28.7 26.5 - 12/24/2016 [facility] 33.0 pg 9:58 PM [facility] MCHC 32.5 31.5 - 12/24/2016 [facility] 36.5 g/dL 9:58 PM [facility] RDW 14.5 10.0 - 12/24/2016 [facility] 15.0 % 9:58 PM [facility] Platelet Count 105 (L) 150 - 450 12/24/2016 [facility] 10e9/L 9:58 PM [facility] Specimen Anatomical Collection Method Collection Time Receive d Time (Source) Location / / Volume Laterality 12/24/2016 9:50 PM 7 9:52 WINCH DERRICK OPERATOR PM WINCH DERRICK OPERATOR Nora Leyva MD LAB - BLOOD ORDERABLES Performing Organization Address City/State/ZIP Code Phon e Number [facility] [address] [place] [address] [facility] (ABNORMAL) Arterial Panel (12/24/2016 9:50 PM [facility]) [facility] gist Method Time Signature pH Arterial 7.31 (L) 7.35 - 12/24/2016 [facility] 7.45 pH 9:58 PM [facility] pCO2 Arterial 38 35 - 45 12/24/2016 [facility] mm Hg 9:58 PM [facility] pO2 Arterial 197 (H) 80 - 105 12/24/2016 [facility] mm Hg 9:58 PM [facility] Bicarbonate 19 (L) 21 - 28 12/24/2016 [facility] Arterial mmol/L 9:58 PM [facility] Base Deficit Art 6.8 mmol/L 12/24/2016 [facility] F 9:58 PM [facility] Comment: Reference range: -9.0 to 1.8 FIO2 50 12/24/2016 9:54 PM [facility] Sodium 137 133 - 144 12/24/2016 9:58 PM [facility] mmol/L [facility] Potassium 3.7 3.4 - 5.3 12/24/2016 9:58 PM [facility] mmol/L [facility] Hemoglobin 7.5 (L) 11.7 - 15.7 12/24/2016 9:58 PM [facility] MD g/dL [facility] Glucose 155 (H) 70 - 99 mg/dL 12/24/2016 9:58 PM [facility] Calcium Ionized 4.6 4.4 - 5.2 12/24/2016 9:58 PM [facility] MD Whole Blood mg/dL [facility] T BANK Specimen Anatomical Collection Method Collection Time Receive d Time (Source) Location / / Volume Laterality 12/24/2016 9:50 PM 7 9:52 WINCH DERRICK OPERATOR PM WINCH DERRICK OPERATOR Nora Leyva MD LAB - BLOOD ORDERABLES Performing Organization Address City/State/ZIP Code Phon e Number [facility] [address] [place] [address] [facility] (ABNORMAL[place] Arterial Panel (12/24/2016 9:20 PM WINCH DERRICK OPERATOR) [facility] Method Time Signature pH Arterial 7.31 (L) 7.35 - 12/24/2016 [facility] 7.45 pH 9:28 PM [facility] pCO2 Arterial 40 35 - 45 12/24/2016 [facility] mm Hg 9:28 PM [facility] pO2 Arterial 191 (H) 80 - 105 12/24/2016 [facility] mm Hg 9:28 PM [facility] Bicarbonate 20 (L) 21 - 28 12/24/2016 [facility] Arterial mmol/L 9:28 PM [facility] Base Deficit Art 5.8 mmol/L 12/24/2016 [facility] F 9:28 PM [facility] Comment: Reference range: -9.0 to 1.8 FIO2 50% 12/24/2016 9:26 PM [facility] Sodium 136 133 - 144 12/24/2016 9:28 PM [facility] mmol/L [facility] Potassium 3.9 3.4 - 5.3 12/24/2016 9:28 PM [facility] mmol/L [facility] Hemoglobin 8.7 (L) 11.7 - 15.7 12/24/2016 9:28 PM [facility] MD g/dL [facility] Glucose 165 (H) 70 - 99 mg/dL 12/24/2016 9:28 PM [facility] Calcium Ionized 4.4 4.4 - 5.2 12/24/2016 9:28 PM [facility] MD Whole Blood mg/dL [facility] B[facility] Specimen Anatomical Collection Method Collection Time Receive d Time (Source) Location / / Volume Laterality 12/24/2016 9:20 PM 7 9:25 WINCH DERRICK OPERATOR PM WINCH DERRICK OPERATOR Nora Leyva MD LAB - BLOOD ORDERABLES Performing Organization Address City/[facility]/ZIP Code Phon e Number [address] [address] [facility] Blood component (12/24/2016 8:45 PM WINCH DERRICK OPERATOR) [facility] Smart GPS Backpack Method Time Signature Unit Number [id number] 12/24/2016 [facility] 7 10:07 PM [facility] Blood PlateletPher 12/24/2016 [facility] Component esis,LeukoRe 10:07 PM [facility] 00 12/24/2016 [facility] Number 10:07 PM [facility] Status of Released to 12/24/2016 [facility] Unit care unit 11:58 PM [facility] Blood Product [id number] 12/24/2016 [facility] Code 10:07 PM [facility] Unit Status ISS [facility] Specimen Anatomical Collection Method Collection Time Receive d Time (Source) Location / / Volume Laterality 12/24/2016 8:45 PM 7 8:50 WINCH DERRICK OPERATOR PM WINCH DERRICK OPERATOR Nora Leyva MD LABORATORY Performing Organization Address City/State/ZIP Code Phon e Number [facility] [address] [place] [address] [address] [facility] Blood component (12/24/2016 8:45 PM WINCH DERRICK OPERATOR) [facility] Smart GPS Backpack Method Time Signature Unit Number [id number] 12/24/2016 [facility] 2 8:52 PM WINCH DERRICK OPERATOR [facility] BANK Blood PlateletPher 12/24/2016 [facility] Component esis,LeukoRe 8:52 PM WINCH DERRICK OPERATOR [facility] d [facility] WEST (Part 2) BANK Division 00 12/24/2016 [facility] Number 8:52 PM WINCH DERRICK OPERATOR [facility] WEST BANK Status of Released to 12/24/2016 [facility] Unit care unit 11:58 PM WINCH DERRICK OPERATOR [facility] Blood Product [id number] 12/24/2016 [facility] Code 8:52 PM WINCH DERRICK OPERATOR [facility] BANK Unit Status ISS [facility] Specimen Anatomical Collection Method Collection Time Receive d Time (Source) Location / / Volume Laterality 12/24/2016 8:45 PM 7 8:50 WINCH DERRICK OPERATOR PM WINCH DERRICK OPERATOR Nora Leyva MD LABORATORY Performing Organization Address City/[facility]/ZIP [facility] Phon e Number [facility] [address] [place], [place] [id number] [place] [address] [facility] Platelets prepare order unit (12/24/2016 8:45 PM WINCH DERRICK OPERATOR) Patholo gist Method Time Signature Blood PLT Pheresis 12/24/2016 [facility] 8:50 PM [facility] Units Ordered 2 12/24/2016 [facility] 10:07 PM [facility] Specimen Anatomical Collection Method Collection Time Receive d Time (Source) Location / / Volume Laterality 12/24/2016 8:45 PM 7 8:50 WINCH DERRICK OPERATOR PM WINCH DERRICK OPERATOR Nora Leyva MD BLOOD BANK PRODUCT ORDERABLE S Performing Organization Address City/[facility]/ZIP Code Phon e Number [address] [address] [facility] Partial thromboplastin time (12/24/2016 8:44 PM WINCH DERRICK OPERATOR) P athologist Signature PTT 30 22 - 37 sec 12/24/2016 [facility] 9:05 PM [facility] Specimen Anatomical Collection Method Collection Time Receive d Time (Source) Location / / Volume Laterality 12/24/2016 8:44 PM 7 8:51 WINCH DERRICK OPERATOR PM WINCH DERRICK OPERATOR Nora Leyva MD LAB - BLOOD ORDERABLES Performing Organization Address City/State/ZIP Code Phon e Number [address] [address] [facility] (ABNORMAL) INR (12/24/2016 8:44 PM WINCH DERRICK OPERATOR) P athologist Signature INR 1.16 (H) 0.86 - 1.14 12/24/2016 [facility] 9:05 PM [facility] Specimen Anatomical Collection Method Collection Time Receive d Time (Source) Location / / Volume Laterality 12/24/2016 8:44 PM 7 8:51 WINCH DERRICK OPERATOR PM WINCH DERRICK OPERATOR Nora Leyva MD LAB - BLOOD ORDERABLES Performing Organization Address City/State/ZIP Code Phon e Number [address] [address] [facility] Fibrinogen activity (12/24/2016 8:44 PM WINCH DERRICK OPERATOR) athologist Signature Fibrinogen 328 200 - 420 12/24/2016 [facility] mg/dL 9:05 PM [facility] Specimen Anatomical Collection Method Collection Time Receive d Time (Source) Location / / Volume Laterality 12/24/2016 8:44 PM 7 8:51 WINCH DERRICK OPERATOR PM WINCH DERRICK OPERATOR Nora Leyva MD LAB - BLOOD ORDERABLES Performing Organization Address City/State/ZIP Code Phon e Number [address] [address] [facility] (ABNORMAL) CBC with platelets (12/24/2016 8:44 PM WINCH DERRICK OPERATOR) [facility] gist Method Time Signature WBC 5.8 4.0 - 11.0 12/24/2016 [facility] 10e9/L 9:16 PM [facility] RBC Count 2.70 (L) 3.8 - 5.2 12/24/2016 [facility] 10e12/L 9:16 PM [facility] Hemoglobin 7.7 (L) 11.7 - 12/24/2016 [facility] 15.7 g/dL 9:16 PM [facility] Hematocrit 24.0 (L) 35.0 - 12/24/2016 [facility] 47.0 % 9:16 PM [facility] MCV 89 78 - 100 12/24/2016 [facility] fl 9:16 PM [facility] MCH 28.5 26.5 - 12/24/2016 [facility] 33.0 pg 9:16 PM [facility] MCHC 32.1 31.5 - 12/24/2016 [facility] 36.5 g/dL 9:16 PM [facility] RDW 16.4 (H) 10.0 - 12/24/2016 [facility] 15.0 % 9:16 PM [facility] Platelet Count 156 150 - 450 12/24/2016 [facility] 10e9/L 9:16 PM [facility] Specimen Anatomical Collection Method Collection Time Receive d Time (Source) Location / / Volume Laterality 12/24/2016 8:44 PM 7 8:51 WINCH DERRICK OPERATOR PM WINCH DERRICK OPERATOR Nora Leyva MD LAB - BLOOD ORDERABLES Performing Organization Address City/State/ZIP Code Phon e Number [facility] [address] [place] [address] [facility] (ABNORMAL) Arterial Panel (12/24/2016 8:44 PM [facility]) [facility] gist Method Time Signature pH Arterial 7.29 (L) 7.35 - 12/24/2016 [facility] 7.45 pH 8:56 PM [facility] pCO2 Arterial 41 35 - 45 12/24/2016 [facility] mm Hg 8:56 PM [facility] pO2 Arterial 355 (H) 80 - 105 12/24/2016 [facility] mm Hg 8:56 PM [facility] Bicarbonate 20 (L) 21 - 28 12/24/2016 [facility] Arterial mmol/L 8:56 PM [facility] Base Deficit Art 6.1 mmol/L 12/24/2016 [facility] F 8:56 PM [facility] Comment: Reference range: -9.0 to 1.8 FIO2 100% 12/24/2016 8:53 PM [facility] Sodium 137 133 - 144 12/24/2016 8:56 PM [facility] mmol/L [facility] Potassium 3.6 3.4 - 5.3 12/24/2016 8:56 PM [facility] mmol/L [facility] Hemoglobin 7.6 (L) 11.7 - 15.7 12/24/2016 8:56 PM [facility] [place] g/dL [facility] Glucose 160 (H) 70 - 99 mg/dL 12/24/2016 8:56 PM [facility] Calcium Ionized 4.1 (L) 4.4 - 5.2 12/24/2016 8:56 PM [facility] MD Whole Blood mg/dL [facility] Specimen Anatomical Collection Method Collection Time Receive d Time (Source) Location / / Volume Laterality 12/24/2016 8:44 PM 7 8:51 WINCH DERRICK OPERATOR PM WINCH DERRICK OPERATOR Nora Leyva MD LAB - BLOOD ORDERABLES Performing Organization Address City/State/ZIP Code Phon e Number [facility] [address] [place] [address] [facility] (ABNORMAL) Arterial Panel (12/24/2016 8:25 PM [facility]) [facility] Method Time Signature pH Arterial 7.30 (L) 7.35 - 12/24/2016 [facility] 7.45 pH 8:33 PM [facility] pCO2 Arterial 40 35 - 45 12/24/2016 [facility] mm Hg 8:33 PM [facility] pO2 Arterial 195 (H) 80 - 105 12/24/2016 [facility] mm Hg 8:33 PM [facility] Bicarbonate 19 (L) 21 - 28 12/24/2016 [facility] Arterial mmol/L 8:33 PM [facility] Base Deficit Art 6.6 mmol/L 12/24/2016 [facility] F 8:33 PM [facility] Comment: Reference range: -9.0 to 1.8 FIO2 100% 12/24/2016 8:29 PM [facility] Sodium 135 133 - 144 12/24/2016 8:33 PM [facility] mmol/L [facility] Potassium 4.1 3.4 - 5.3 12/24/2016 8:33 PM [facility] mmol/L [facility] Hemoglobin 8.0 (L) 11.7 - 15.7 12/24/2016 8:33 PM [facility] [place] [place] g/dL [facility] Glucose 136 (H) 70 - 99 mg/dL 12/24/2016 8:33 PM [facility] Calcium Ionized 4.3 (L) 4.4 - 5.2 12/24/2016 8:33 PM [facility] MD Whole Blood mg/dL [facility] Specimen Anatomical Collection Method Collection Time Receive d Time (Source) Location / / Volume Laterality 12/24/2016 8:25 PM 7 8:29 WINCH DERRICK OPERATOR PM WINCH DERRICK OPERATOR Nora Leyva MD LAB - BLOOD ORDERABLES Performing Organization Address City/[facility]/ZIP Code Phon e Number [address] [address] [facility] Blood component (12/24/2016 7:25 PM WINCH DERRICK OPERATOR) [facility] Smart GPS Backpack Method Time Signature Unit Number [id number] 12/24/2016 [facility] 10:10 PM [facility] Blood Plasma, 12/24/2016 [facility] Component Thawed 10:10 PM WINCH DERRICK OPERATOR [facility] BANK Division 00 12/24/2016 [facility] Number 10:10 PM [facility] Status of No longer 12/24/2016 [facility] Unit available 11:49 PM [facility] 12/24/2016 [facility] 2349 BANK Blood Product [id number] 12/24/2016 [facility] Code 10:10 PM [facility] Unit Status [facility] Specimen Anatomical Collection Method Collection Time Receive d Time (Source) Location / / Volume Laterality 12/24/2016 7:25 PM 7 7:30 WINCH DERRICK OPERATOR PM WINCH DERRICK OPERATOR Nora Leyva MD LAB - BLOOD BANK PRODUCT ORD ER Performing Organization Address City/[facility]/ZIP Code Phon e Number [address] [address] [facility] Blood component (12/24/2016 7:25 PM WINCH DERRICK OPERATOR) [facility] Smart GPS Backpack Method Time Signature Unit Number [id number] 12/24/2016 [facility] 10:10 PM [facility] Blood Plasma, 12/24/2016 [facility] Component Thawed 10:10 PM [facility] BANK Division 00 12/24/2016 [facility] Number 10:10 PM [facility] B[facility] Status of No longer 12/24/2016 [facility] Unit available 11:48 PM [facility] 12/24/2016 [facility] BANK Blood Product [id number] 12/24/2016 [facility] Code 10:10 PM WINCH DERRICK OPERATOR [facility] Unit Status RET [facility] Specimen Anatomical Collection Method Collection Time Receive d Time (Source) Location / / Volume Laterality 12/24/2016 7:25 PM 7 7:30 WINCH DERRICK OPERATOR PM WINCH DERRICK OPERATOR Nora Leyva MD LAB - BLOOD BANK PRODUCT ORD ER Performing Organization Address City/[facility]/ZIP Code Phon e Number [address] [address] [facility] Blood component (12/24/2016 7:25 PM WINCH DERRICK OPERATOR) [facility] Method Time Signature Unit Number [id number] 12/24/2016 [facility] 9 9:03 PM WINCH DERRICK OPERATOR [facility] Blood Plasma, 12/24/2016 [facility] Component Thawed 9:03 PM WINCH DERRICK OPERATOR [facility] BANK Division 00 12/24/2016 [facility] Number 9:03 PM [facility] B[facility] Status of Released to 12/24/2016 [facility] Unit care unit 11:58 PM WINCH DERRICK OPERATOR [facility] Blood Product [id number] 12/24/2016 [facility] Code 9:03 PM [facility] Unit Status ISS [facility] Specimen Anatomical Collection Method Collection Time Receive d Time (Source) Location / / Volume Laterality 12/24/2016 7:25 PM 7 7:30 WINCH DERRICK OPERATOR PM WINCH DERRICK OPERATOR Nora Leyva MD LABORATORY Performing Organization Address City/[facility]/ZIP Code Phon e Number [address] [address] [facility] Blood component (12/24/2016 7:25 PM WINCH DERRICK OPERATOR) [facility] Method Time Signature Unit Number [id number] 12/24/2016 [facility] 7 9:03 PM WINCH DERRICK OPERATOR [facility] BANK Blood Plasma, 12/24/2016 [facility] Component Thawed 9:03 PM [facility] BANK Division 00 12/24/2016 [facility] Number 9:03 PM [facility] B[facility] Status of Released to 12/24/2016 [facility] Unit care unit 11:58 PM [facility] Blood Product [id number] 12/24/2016 [facility] Code 9:03 PM WINCH DERRICK OPERATOR [facility] BANK Unit Status ISS [facility] Specimen Anatomical Collection Method Collection Time Receive d Time (Source) Location / / Volume Laterality 12/24/2016 7:25 PM 7 7:30 WINCH DERRICK OPERATOR PM WINCH DERRICK OPERATOR Nora Leyva MD LABORATORY Performing Organization Address City/[facility]/ZIP Code Phon e Number [facility] [address] [place] [address] [address] [facility] Blood component (12/24/2016 7:25 PM WINCH DERRICK OPERATOR) [facility] Smart GPS Backpack Method Time Signature Unit Number [id number] 12/24/2016 [facility] 8:18 PM WINCH DERRICK OPERATOR [facility] BANK Blood Apheresis 12/24/2016 [facility] Component Plasma Thawed 8:18 PM WINCH DERRICK OPERATOR [facility] BANK Division 00 12/24/2016 [facility] Number 8:18 PM WINCH DERRICK OPERATOR [facility] BANK Status of Released to 12/24/2016 [facility] Unit care unit 11:58 PM WINCH DERRICK OPERATOR [facility] Blood Product [id number] 12/24/2016 [facility] Code 8:18 PM WINCH DERRICK OPERATOR [facility] BANK Unit Status ISS [facility] Specimen Anatomical Collection Method Collection Time Receive d Time (Source) Location / / Volume Laterality 12/24/2016 7:25 PM 7 7:30 WINCH DERRICK OPERATOR PM WINCH DERRICK OPERATOR Nora Leyva MD LABORATORY Performing Organization Address City/[facility]/ZIP Code Phon e Number [facility] [address] [place] [address] [address] [facility] B[facility] Blood component (12/24/2016 7:25 PM WINCH DERRICK OPERATOR) [facility] gist Method Time Signature Unit Number [id number] 12/24/2016 [facility] 5 8:18 PM WINCH DERRICK OPERATOR [facility] BANK Blood Plasma, 12/24/2016 [facility] Component Thawed 8:18 PM WINCH DERRICK OPERATOR [facility] BANK Division 00 12/24/2016 [facility] Number 8:18 PM WINCH DERRICK OPERATOR [facility] BANK Status of Released to 12/24/2016 [facility] Unit care unit 11:58 PM WINCH DERRICK OPERATOR [facility] Blood Product [id number] 12/24/2016 [facility] Code 8:18 PM WINCH DERRICK OPERATOR [facility] BANK Unit Status ISS [facility] Specimen Anatomical Collection Method Collection Time Receive d Time (Source) Location / / Volume Laterality 12/24/2016 7:25 PM 7 7:30 WINCH DERRICK OPERATOR PM WINCH DERRICK OPERATOR Nora Leyva MD LABORATORY Performing Organization Address City/[facility]/ZIP Code Phon e Number [facility] [address] [place] [address] [address] [facility] Blood component (12/24/2016 7:25 PM WINCH DERRICK OPERATOR) [facility] Smart GPS Backpack Method Time Signature Unit Number [id number] 12/24/2016 [facility] 3 8:18 PM WINCH DERRICK OPERATOR [facility] BANK Blood Plasma, 12/24/2016 [facility] Component Thawed 8:18 PM WINCH DERRICK OPERATOR [facility] WE[facility] BANK Division 00 12/24/2016 [facility] Number 8:18 PM WINCH DERRICK OPERATOR [facility] WEST BANK Status of Released to 12/24/2016 [facility] Unit care unit 11:58 PM WINCH DERRICK OPERATOR [facility] Blood Product [id number] 12/24/2016 [facility] Code 8:18 PM WINCH DERRICK OPERATOR [facility] BANK Unit Status ISS [facility] Specimen Anatomical Collection Method Collection Time Receive d Time (Source) Location / / Volume Laterality 12/24/2016 7:25 PM 7 7:30 WINCH DERRICK OPERATOR PM WINCH DERRICK OPERATOR Nora Leyva MD LABORATORY Performing Organization Address City/[facility]/ZIP Code Phon e Number [facility] [address] [place] [address] [address] WEST BANK Blood component (12/24/2016 7:25 PM WINCH DERRICK OPERATOR) [employer] Smart GPS Backpack Method Time Signature Unit Number [id number] 12/24/2016 [facility] 9 8:18 PM WINCH DERRICK OPERATOR [facility] BANK Blood Plasma, 12/24/2016 [facility] Component Thawed 8:18 PM WINCH DERRICK OPERATOR [facility] Unit WEST BANK Division 00 12/24/2016 [facility] Number 8:18 PM WINCH DERRICK OPERATOR [facility] BANK Status of Released to 12/24/2016 [facility] Unit care unit 11:58 PM WINCH DERRICK OPERATOR [facility] Blood Product [id number] 12/24/2016 [facility] Code 8:18 PM WINCH DERRICK OPERATOR [facility] Unit Status ISS [facility] Specimen Anatomical Collection Method Collection Time Receive d Time (Source) Location / / Volume Laterality 12/24/2016 7:25 PM 7 7:30 WINCH DERRICK OPERATOR PM WINCH DERRICK OPERATOR Nora Leyva MD LABORATORY Performing Organization Address City/State/ZIP Code Phon e Number [facility] [address] [place] [address] [address] [facility] Plasma prepare order unit (12/24/2016 7:25 PM WINCH DERRICK OPERATOR) P athologist Signature Blood Plasma 12/24/2016 [facility] Component Type 7:31 PM [facility] Units Ordered 8 12/24/2016 [facility] 10:10 PM [facility] Specimen Anatomical Collection Method Collection Time Receive d Time (Source) Location / / Volume Laterality 12/24/2016 7:25 PM 7 7:30 WINCH DERRICK OPERATOR PM WINCH DERRICK OPERATOR Nora Leyva MD BLOOD BANK PRODUCT ORDERABLE S Performing Organization Address City/[facility]/ZIP Code Phon e Number [address] [address] [facility] (ABNORMAL) CBC with platelets differential (12/24/2016 7:06 PM WINCH DERRICK OPERATOR) Patholo gist Method Time Signature WBC 10.4 4.0 - 12/24/2016 [facility] 11.0 7:11 PM [facility] 10e9/L [facility] RBC Count 2.99 (L) 3.8 - 5.2 12/24/2016 [facility] 10e12/L 7:11 PM [facility] Hemoglobin 9.0 (L) 11.7 - 12/24/2016 [facility] 15.7 g/dL 7:11 PM [facility] Hematocrit 28.5 (L) 35.0 - 12/24/2016 [facility] 47.0 % 7:11 PM [facility] MCV 95 78 - 100 12/24/2016 [facility] fl 7:11 PM [facility] MCH 30.1 26.5 - 12/24/2016 [facility] 33.0 pg 7:11 PM [facility] MCHC 31.6 31.5 - 12/24/2016 [facility] 36.5 g/dL 7:11 PM [facility] RDW 16.1 (H) 10.0 - 12/24/2016 [facility] 15.0 % 7:11 PM [facility] Platelet Count 256 150 - 450 12/24/2016 [facility] 10e9/L 7:11 PM [facility] Diff Method Automated 12/24/2016 [facility] Method 7:11 PM [facility] % Neutrophils 69.4 % 12/24/2016 [facility] 7:11 PM [facility] % Lymphocytes 21.5 % 12/24/2016 [facility] 7:11 PM [facility] % Monocytes 5.7 % 12/24/2016 [facility] 7:11 PM [facility] % Eosinophils 2.9 % 12/24/2016 [facility] 7:11 PM [facility] % Basophils 0.1 % 12/24/2016 [facility] 7:11 PM [facility] % Immature 0.4 % 12/24/2016 [facility] Granulocytes 7:11 PM [facility] Nucleated RBCs 0 0 /100 12/24/2016 [facility] 7:11 PM [facility] Absolute 7.2 1.6 - 8.3 12/24/2016 [facility] Neutrophil 10e9/L 7:11 PM [facility] Absolute 2.2 0.8 - 5.3 12/24/2016 [facility] Lymphocytes 10e9/L 7:11 PM [facility] Absolute 0.6 0.0 - 1.3 12/24/2016 [facility] Monocytes 10e9/L 7:11 PM [facility] Absolute 0.3 0.0 - 0.7 12/24/2016 [facility] Eosinophils 10e9/L 7:11 PM [facility] Absolute 0.0 0.0 - 0.2 12/24/2016 [facility] Basophils 10e9/L 7:11 PM [facility] Abs Immature 0.0 0 - 0.4 12/24/2016 [facility] Granulocytes 10e9/L 7:11 PM [facility] Absolute 0.0 12/24/2016 [facility] Nucleated RBC 7:11 PM WINCH DERRICK OPERATOR [facility] Specimen Anatomical Collection Method Collection Time Receive d Time (Source) Location / / Volume Laterality Blood specimen 12/24/2016 7:06 PM 017 7:07 (specimen) WINCH DERRICK OPERATOR PM WINCH DERRICK OPERATOR Kayla Davidson MD LAB - BLOOD ORDERABLES Performing Organization Address City/[facility]/ZIP Code Phon e Number [facility] [address] [place] [address] [facility] Urine Culture Aerobic Bacterial (12/24/2016 7:50 AM WINCH DERRICK OPERATOR) Component Value Ref Test Analysis Performed At Patholo gist Range Method Time Signature Specimen Midstream Urine INFECTIOUS Description DISEASE DIAGNOSTIC LABORATORY Special Specimen received 12/24/2016 DUN[facility] OF [facility] in preservative 11:03 AM [facility] Culture Micro <10,000 colonies/mL 12/25/2016 INFEC TIOUS mixed urogenital evelina 7:35 AM WINCH DERRICK OPERATOR [facility] Susceptibility testing not routinely done DIAGNOSTIC LABORATORY Specimen (Source) Anatomical Collection Method Collection Time Re ceived Time Location / / Volume Laterality Examination of 12/24/2016 7:50 12/24/2016 8:46 midstream urine AM WINCH DERRICK OPERATOR AM WINCH DERRICK OPERATOR specimen (procedure) Nora Leyva MD LAB - MICRO GENERAL ORDERABL ES Performing Organization Address City/[facility]/ZIP Code Phon e Number INFECTIOUS DISEASES [address] [place] [address] DIAGNOSTIC LABORATORY, [facility] INFECTIOUS DISEASE [address] [place] [address], [facility] DIAGNOSTIC LABORATORY [address] (ABNORMAL) UA with Microscopic reflex to Culture (12/24/2016 7:50 AM WINCH DERRICK OPERATOR) Patholo gist Method Time Signature Color Urine Yellow 12/24/2016 [facility] 8:35 AM WINCH DERRICK OPERATOR [facility] Appearance Urine Clear 12/24/2016 UN[facility]ITY O F 8:35 AM WINCH DERRICK OPERATOR [facility] Glucose Urine Negative NEG^Negat 12/24/2016 [facility] paula mg/dL 8:35 AM [facility] Bilirubin Urine Negative NEG^Negat 12/24/2016 [facility] paula 8:35 AM [facility] Ketones Urine Negative NEG^Negat 12/24/2016 [facility] [place] mg/dL 8:35 AM [facility] Specific [place] 1.013 1.003 - 12/24/2016 UN[facility]ITY O F Urine 1.035 8:35 AM [facility] Blood Urine Moderate (A) NEG^Negat 12/24/2016 [facility] [place]ula 8:35 AM [facility] pH Urine 6.5 5.0 - 7.0 12/24/2016 [facility] pH 8:35 AM [facility] Protein Albumin Negative NEG^Negat 12/24/2016 [facility] Urine paula mg/dL 8:35 AM [facility] Urobilinogen Normal 0.0 - 2.0 12/24/2016 [facility] mg/dL mg/dL 8:35 AM [facility] Nitrite Urine Negative NEG^Negat 12/24/2016 [facility] [place]ula 8:35 AM [facility] Leukocyte Large (A) NEG^Negat 12/24/2016 [facility] Esterase Urine paula 8:35 AM [facility] Source Midstream 12/24/2016 [facility] Urine 8:06 AM [facility] WBC Urine 24 (H) 0 - 2 12/24/2016 [facility] /HPF 8:37 AM [facility] RBC Urine 34 (H) 0 - 2 12/24/2016 [facility] /HPF 8:37 AM [facility] Bacteria Urine Few (A) NEG^Negat 12/24/2016 [facility] [place] /HPF 8:37 AM [facility] Squamous 2 (H) 0 - 1 12/24/2016 [facility] Epithelial /HPF /HPF 8:37 AM [facility] Transitional Epi <1 0 - 1 12/24/2016 UN[facility]ERSITY O F /HPF 8:37 AM [facility] Specimen (Source) Anatomical Collection Method Collection Time Re ceived Time Location / / Volume Laterality Examination of URINE SPECIMEN 12/24/2016 7:50 12/25/19 17 8:05 midstream urine OBTAINED BY CLEAN AM WINCH DERRICK OPERATOR AM [facility] specimen CATCH PROCEDURE / (procedure) Unknown Petrona Barone DO LAB - URINE ORDERABLES Performing Organization Address City/State/ZIP Code Phon e Number [facility] [address] [place] [address] [facility] (ABNORMAL) Wet prep (12/23/2016 11:53 PM WINCH DERRICK OPERATOR) Component Value Ref Test Analysis Performed At [facility] gist Range Method Time Signature Specimen Vagina [facility] Description [facility] Wet Prep No motile 12/24/2016 [facility] Trichomonas 12:21 AM [facility] seen [facility] Wet Prep Rare 12/24/2016 [facility] Yeast seen 12:21 AM [facility] (A) [facility] Wet Prep Moderate 12/24/2016 [facility] PMNs seen 12:21 AM [facility] Wet Prep No clue cells 12/24/2016 [facility] seen 12:21 AM [facility] Specimen Anatomical Collection Method Collection Time Receive d Time (Source) Location / / Volume Laterality Specimen from 12/23/2016 11:53 12/24/2016 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 12:10 AM WINCH DERRICK OPERATOR (specimen) Petrona Barone DO LAB - MICRO GENERAL ORDERABL ES Performing Organization Address City/State/ZIP Code Phon e Number [facility] [address] [place] [address] [facility] Maternal BPP Single (12/23/2016 8:37 AM WINCH DERRICK OPERATOR) Anatomical Region Laterality Modality Ultrasound Specimen (Source) Anatomical Collection Method Collection Time Re ceived Time Location / / Volume Laterality 12/23/2016 8:05 AM WINCH DERRICK OPERATOR Impressions 12/23/2016 11:10 AM WINCH DERRICK OPERATOR IMPRESSION 1) Intrauterine at 29 3/7 week s gestational age. 2) The BPP is reassuring. 3) The amniotic fluid volume low consist ent with known PPROM. 4) There is a complete posterior/lateral placenta previa. Narrative 12/23/2016 11:10 AM WINCH DERRICK OPERATOR BPP Pat. Name: DEANN KING Study Date: 8:05am Pat. NO: [id number] Referring ??MD: CHRIST LOZADA Site: [facility] [employer]: Jay Lu : 1980 Age: 36 INDICATION Premature Rupture of Membranes ( PPROM) Complete previa. METHOD [facility] ANTEPARTUM inpatient exam, Transabd ominal ultrasound [...] Pat. Name:Elizabeth KING Date:12/23 8:05am Pat. NO: [id number] :CHRIST BHAT ON [facility]Yesenia [facility] RDMS :1980Age:36 INDICATION Premature Rupture of Membranes ( PPROM) Complete previa. METHOD [facility] ANTEPARTUM inpatient exam, Transabd ominal ultrasound [...] complete posterior/lateral placenta previa. Lashawn Patel MD [facility] ORDERABLES Blood component (12/23/2016 6:54 AM WINCH DERRICK OPERATOR) Kid Bunch Method Time Signature Unit Number [id number] 12/24/2016 [facility] 9:49 PM WINCH DERRICK OPERATOR [facility] BANK Blood Red Blood 12/24/2016 [facility] Component Cells 9:49 PM [facility] Reduced BANK Division 00 12/24/2016 [facility] Number 9:49 PM [facility] Status of Released to 12/24/2016 [facility] Unit care unit 11:58 PM [facility] Blood Product [id number] 12/24/2016 [facility] Code 9:49 PM [facility] Unit Status ISS [facility] Specimen Anatomical Collection Method Collection Time Receive d Time (Source) Location / / Volume Laterality 12/23/2016 6:54 AM 7 6:55 WINCH DERRICK OPERATOR AM WINCH DERRICK OPERATOR [facility] LABORATORY Performing Organization Address City/State/ZIP Code Phon e Number [facility] [address] [place], [place] [address] [place] [id number] [place] [address] Blood component (12/23/2016 6:54 AM WINCH DERRICK OPERATOR) Kid Bunch Method Time Signature Unit Number [id number] 12/24/2016 [facility] 9:49 PM [facility] BANK Blood Red Blood 12/24/2016 [facility] Component Cells 9:49 PM [facility] Reduced BANK Division 00 12/24/2016 [facility] Number 9:49 PM [facility] Status of No longer 12/24/2016 [facility] Unit available 11:50 PM [facility] 12/24/2016 [facility] [address] BANK Blood Product [id number] 12/24/2016 [facility] Code 9:49 PM WINCH DERRICK OPERATOR [facility] BANK Unit Status RET [facility] Specimen Anatomical Collection Method Collection Time Receive d Time (Source) Location / / Volume Laterality 12/23/2016 6:54 AM 7 6:55 WINCH DERRICK OPERATOR AM WINCH DERRICK OPERATOR Nora [facility] LABORATORY Performing Organization Address City/State/ZIP Code Phon e Number [address] [address] [facility] Blood component (12/23/2016 6:54 AM WINCH DERRICK OPERATOR) Patholo gist Method Time Signature Unit Number [id number] 12/24/2016 [facility] 9:49 PM WINCH DERRICK OPERATOR [facility] BANK Blood Red Blood 12/24/2016 [facility] Component Cells 9:49 PM WINCH DERRICK OPERATOR [facility] Reduced BANK Division 00 12/24/2016 [facility] Number 9:49 PM WINCH DERRICK OPERATOR [facility] BANK Status of Released to 12/24/2016 [facility] Unit care unit 11:58 PM WINCH DERRICK OPERATOR [facility] Blood Product [id number] 12/24/2016 [facility] Code 9:49 PM WINCH DERRICK OPERATOR [facility] BANK Unit Status ISS [facility] Specimen Anatomical Collection Method Collection Time Receive d Time (Source) Location / / Volume Laterality 12/23/2016 6:54 AM 7 6:55 WINCH DERRICK OPERATOR AM WINCH DERRICK OPERATOR [facility] LAB - BLOOD BANK PRODUCT ORD ER Performing Organization Address City/[facility]/ZIP Code Phon e Number [facility] [address] [place] [address] [address] [facility] Blood component (12/23/2016 6:54 AM WINCH DERRICK OPERATOR) Patholo gist Method Time Signature Unit Number [id number] 12/24/2016 [facility] 9:49 PM WINCH DERRICK OPERATOR [facility] BANK Blood Red Blood 12/24/2016 [facility] Component Cells 9:49 PM WINCH DERRICK OPERATOR [facility]ST Reduced BANK Division 00 12/24/2016 [facility] Number 9:49 PM WINCH DERRICK OPERATOR [facility] BANK Status of Released to 12/24/2016 [facility] OF Unit care unit 11:58 PM WINCH DERRICK OPERATOR [facility] Blood Product [id number] 12/24/2016 [facility] Code 9:49 PM WINCH DERRICK OPERATOR [facility] BANK Unit Status ISS [facility] Specimen Anatomical Collection Method Collection Time Receive d Time (Source) Location / / Volume Laterality 12/23/2016 6:54 AM 7 6:55 WINCH DERRICK OPERATOR AM WINCH DERRICK OPERATOR Nora Mohamud LAB - BLOOD BANK PRODUCT ORD ER Performing Organization Address City/[facility]/ZIP Code Phon e Number [facility] [address] [place] [address] [address] WEST BANK Blood component (12/23/2016 6:54 AM WINCH DERRICK OPERATOR) Kid Bunch Method Time Signature Unit Number [id number] 12/24/2016 [facility] 8:38 PM [facility] BANK Blood Red Blood 12/24/2016 [facility] Component Cells 8:38 PM WINCH DERRICK OPERATOR [facility] Reduced BANK Division 00 12/24/2016 [facility] Number 8:38 PM [facility] BANK Status of Released to 12/24/2016 [facility] OF Unit care unit 11:58 PM WINCH DERRICK OPERATOR [facility] Blood Product [id number] 12/24/2016 [facility] Code 8:38 PM [facility] BANK Unit Status ISS [facility] Specimen Anatomical Collection Method Collection Time Receive d Time (Source) Location / / Volume Laterality 12/23/2016 6:54 AM 7 6:55 WINCH DERRICK OPERATOR AM WINCH DERRICK OPERATOR [facility] LAB - BLOOD BANK PRODUCT ORD ER Performing Organization Address City/[facility] Code Phon e Number [facility] [address] [place] [address] [address] WEST BANK Blood component (12/23/2016 6:54 AM WINCH DERRICK OPERATOR) Kid Bunch Method Time Signature Unit Number [id number] 12/24/2016 [facility] OF 8:38 PM WINCH DERRICK OPERATOR [facility] BANK Blood Red Blood 12/24/2016 [facility] OF Component Cells 8:38 PM WINCH DERRICK OPERATOR [facility] Reduced BANK Division 00 12/24/2016 [facility] Number 8:38 PM [facility] BANK Status of Released to 12/24/2016 [facility] OF Unit care unit 11:58 PM WINCH DERRICK OPERATOR [facility] Blood Product [id number] 12/24/2016 [facility] Code 8:38 PM WINCH DERRICK OPERATOR [facility] BANK Unit Status ISS [facility] Specimen Anatomical Collection Method Collection Time Receive d Time (Source) Location / / Volume Laterality 12/23/2016 6:54 AM 7 6:55 WINCH DERRICK OPERATOR AM WINCH DERRICK OPERATOR Nora Munguia Cade LAB - BLOOD BANK PRODUCT ORD ER Performing Organization Address City/State/ZIP Code Phon e Number [facility] [address] [place] [address] [address] WEST BANK Blood component (12/23/2016 6:54 AM WINCH DERRICK OPERATOR) [facility] Method Time Signature Unit Number [id number] 12/24/2016 [facility] OF 8:38 PM WINCH DERRICK OPERATOR [facility] BANK Blood Red Blood 12/24/2016 [facility] OF Component Cells 8:38 PM WINCH DERRICK OPERATOR [facility] Leukocyte [facility] Reduced BANK Division 00 12/24/2016 [facility] Number 8:38 PM WINCH DERRICK OPERATOR [facility] BANK Status of Released to 12/24/2016 [facility] OF Unit care unit 11:58 PM WINCH DERRICK OPERATOR [facility] Blood Product [id number] 12/24/2016 [facility] Code 8:38 PM WINCH DERRICK OPERATOR [facility] BANK Unit Status ISS [facility] Specimen Anatomical Collection Method Collection Time Receive d Time (Source) Location / / Volume Laterality 12/23/2016 6:54 AM 7 6:55 WINCH DERRICK OPERATOR AM WINCH DERRICK OPERATOR Nora Mohamud LABORATORY Performing Organization Address City/[facility] Code Phon e Number [facility] [address] [place] [address] [address] WEST BANK Blood component (12/23/2016 6:54 AM WINCH DERRICK OPERATOR) Kid Bunch Method Time Signature Unit Number [id number] 12/24/2016 [facility] OF 8:38 PM WINCH DERRICK OPERATOR [facility] BANK Blood Red Blood 12/24/2016 [facility] OF Component Cells 8:38 PM WINCH DERRICK OPERATOR [facility] Reduced BANK Division 00 12/24/2016 [facility] Number 8:38 PM WINCH DERRICK OPERATOR [facility] BANK Status of Released to 12/24/2016 [facility] OF Unit care unit 11:58 PM WINCH DERRICK OPERATOR [facility] Blood Product [id number] 12/24/2016 [facility] Code 8:38 PM WINCH DERRICK OPERATOR [facility] BANK Unit Status ISS [facility] Specimen Anatomical Collection Method Collection Time Receive d Time (Source) Location / / Volume Laterality 12/23/2016 6:54 AM 7 6:55 WINCH DERRICK OPERATOR AM WINCH DERRICK OPERATOR [facility] LABORATORY Performing Organization Address City/State/ZIP Code Phon e Number [facility] [address] [place] [address] [place] [address] [place] [address] WEST BANK Blood component (12/23/2016 6:54 AM WINCH DERRICK OPERATOR) [facility] Smart GPS Backpack Method Time Signature Unit Number [id number] 12/24/2016 [facility]ITY OF 7:32 PM WINCH DERRICK OPERATOR [facility] BANK Blood Red Blood 12/24/2016 [facility] OF Component Cells 7:32 PM WINCH DERRICK OPERATOR [facility] Leukocyte [facility] Reduced BANK Division 00 12/24/2016 [facility] Number 7:32 PM WINCH DERRICK OPERATOR [facility] BANK Status of Released to 12/24/2016 [facility] OF Unit care unit 11:58 PM WINCH DERRICK OPERATOR [facility] Blood Product [id number] 12/24/2016 [facility] Code 7:32 PM WINCH DERRICK OPERATOR [facility] BANK Unit Status ISS [facility] Specimen Anatomical Collection Method Collection Time Receive d Time (Source) Location / / Volume Laterality 12/23/2016 6:54 AM 7 6:55 WINCH DERRICK OPERATOR AM WINCH DERRICK OPERATOR [facility] [employer] LABORATORY Performing Organization Address City/State/ZIP Code Phon e Number [facility] [address] [place] [address] [facility] [address] [place] [address] WEST BANK Blood component (12/23/2016 6:54 AM WINCH DERRICK OPERATOR) [facility] Smart GPS Backpack Method Time Signature Unit Number [id number] 12/24/2016 [facility] OF 7:32 PM WINCH DERRICK OPERATOR [facility] BANK Blood Red Blood 12/24/2016 [facility] OF Component Cells 7:32 PM WINCH DERRICK OPERATOR [facility] Leukocyte [facility] Reduced BANK Division 00 12/24/2016 [facility] Number 7:32 PM WINCH DERRICK OPERATOR [facility] BANK Status of Released to 12/24/2016 [facility] OF Unit care unit 11:58 PM WINCH DERRICK OPERATOR [facility] Blood Product [id number] 12/24/2016 [facility] OF Code 7:32 PM WINCH DERRICK OPERATOR [facility] BANK Unit Status ISS [facility] Specimen Anatomical Collection Method Collection Time Receive d Time (Source) Location / / Volume Laterality 12/23/2016 6:54 AM 7 6:55 WINCH DERRICK OPERATOR AM WINCH DERRICK OPERATOR [facility] LABORATORY Performing Organization Address City/State/ZIP Code Phon e Number [facility] [address] [place] [address] [address] [place] BANK Blood component (12/23/2016 6:54 AM WINCH DERRICK OPERATOR) [facility] Smart GPS Backpack Method Time Signature Unit Number [id number] 12/24/2016 [facility] OF 7:05 PM WINCH DERRICK OPERATOR [facility] BANK Blood Red Blood 12/24/2016 [facility] OF Component Cells 7:05 PM WINCH DERRICK OPERATOR [facility] Reduced BANK Division 00 12/24/2016 [facility] Number 7:05 PM [facility] BANK Status of Released to 12/24/2016 [facility] OF Unit care unit 11:58 PM WINCH DERRICK OPERATOR [facility] Blood Product [id number] 12/24/2016 [facility] Code 7:05 PM [facility] BANK Unit Status ISS [facility] Specimen Anatomical Collection Method Collection Time Receive d Time (Source) Location / / Volume Laterality 12/23/2016 6:54 AM 7 6:55 WINCH DERRICK OPERATOR AM WINCH DERRICK OPERATOR [facility] LABORATORY Performing Organization Address City/State/ZIP Code Phon e Number [facility] [address] [place] [address] [address] WEST BANK Blood component (12/23/2016 6:54 AM WINCH DERRICK OPERATOR) [facility] Smart GPS Backpack Method Time Signature Unit Number [id number] 12/24/2016 [facility]ITY OF 7:05 PM [facility] WEST BANK Blood Red Blood 12/24/2016 UNIVERSITY OF Component Cells 7:05 PM WINCH DERRICK OPERATOR [facility] WEST [facility] BANK Division 00 12/24/2016 UN[facility]ERSITY OF Number 7:05 PM [facility] Status of Released to 12/24/2016 UN[facility]ITY OF Unit care unit 11:58 PM [facility] Blood Product [id number] 12/24/2016 [facility]ITY OF Code 7:05 PM [facility] WEST [facility] Unit Status ISS [facility] Specimen Anatomical Collection Method Collection Time Receive d Time (Source) Location / / Volume Laterality 12/23/2016 6:54 AM 7 6:55 WINCH DERRICK OPERATOR AM WINCH DERRICK OPERATOR Nora BhatiaEditorially LABORATORY Performing Organization Address City/[facility]/ZIP Code Phon e Number [facility] [address] [place] [address] [address] [facility] ABO/Rh type and screen (12/23/2016 6:54 AM WINCH DERRICK OPERATOR) [facility] gist Method Time Signature Units Ordered 12 12/24/2016 [facility] 9:49 PM [facility] BANK ABO B 12/23/2016 UN[facility]ITY OF 7:32 AM [facility] RH(D) Pos [facility] Antibody Neg 12/23/2016 UNIVERSITY OF Screen 7:32 AM [facility] Test Valid University 12/23/2016 [facility] OF [place] [facility] [place] 7:[address] [facility] BANK w Hospital Specimen 12/26/2016 12/23/2016 UNIVERSITY OF Expires 7:01 AM [facility] Crossmatch Red Blood 12/24/2016 UNIVERSITY OF Cells 7:05 PM [facility] Specimen Anatomical Collection Method Collection Time Receive d Time (Source) Location / / Volume Laterality Blood specimen 12/23/2016 6:54 AM 017 6:55 (specimen) WINCH DERRICK OPERATOR AM WINCH DERRICK OPERATOR Nora Mohamud LAB - BLOOD BANK TEST ORDER Performing Organization Address City/State/ZIP Code Phon e Number [address] [address] [facility] ABO/Rh type and screen (12/20/2016 10:48 AM CDT) [facility] Smart GPS Backpack Method Time Signature ABO B 12/20/2016 UN[facility]ERSITY OF 11:31 AM CDT [facility] RH(D) Pos [facility] Antibody Neg 12/20/2016 UNIVERSITY OF Screen 11:31 AM CDT [facility] Test Valid University 12/20/2016 [facility] OF [place] [facility] [place] 11:00 AM CDT [facility] BANK w Hospital Specimen 12/23/2016 12/20/2016 UNIVERSITY OF Expires 11:00 AM CDT [facility] Specimen Anatomical Collection Method Collection Time Receive d Time (Source) Location / / Volume Laterality Blood specimen 12/20/2016 10:48 7 (specimen) AM CDT 10:49 AM CDT Lashawn Patel MD LAB - BLOOD BANK TEST ORDER Performing Organization Address City/State/ZIP Code Phon e Number [facility] [address] [place] [address] [facility] Maternal BPP Single (12/19/2016 8:46 AM CDT) Anatomical Region Laterality Modality Ultrasound Specimen (Source) Anatomical Collection Method Collection Time Re ceived Time Location / / Volume Laterality 12/19/2016 8:16 AM CDT Impressions 12/25/2016 9:13 AM WINCH DERRICK OPERATOR IMPRESSION 1) Intrauterine at 28 6/7 week s gestational age. 2) The BPP is reassuring. 3) Oligohydramnios is seen consistent wi th know PPROM. 4) A complete posterior placenta previa is again seen. Narrative 12/25/2016 9:13 AM WINCH DERRICK OPERATOR BPP Pat. Name: DEANN KING Study Date: 8:16am Pat. NO: [id number] Referring ??MD: CHRIST LOZADA Site: [facility] [employer]: Jay Lu : 1980 Age: 36 INDICATION Premature Rupture of Membranes ( PPROM) Complete previa. METHOD [facility] ANTEPARTUM inpatient exam, Transabd ominal ultrasound [...] RECOMMENDATION We discussed the findings on today's zuhair noriega with the patient. Continue [facility] weekly BPP. Continue inpatient management of [...] Pat. Name:Elizabeth KING Date:12/19 8:16am Pat. NO: [id number] MD:CHRIST BHAT ON [facility]Yesenia Sen RDMS :1980Age:36 INDICATION Premature Rupture of Membranes ( PPROM) Complete previa. METHOD [facility] ANTEPARTUM inpatient exam, Transabd ominal ultrasound [...] rasound with the patient. Continue [facility] weekly BPP. Continue inpatient management of [...] previa is again seen. Erum Manzanares [facility] ORDERABLES ABO/Rh type and screen (12/17/2016 6:54 AM CDT) [facility] Smart GPS Backpack Method Time Signature ABO B 12/17/2016 UNIVERSITY 7:49 AM CDT [facility] RH(D) Pos [facility] Antibody Neg 12/17/2016 UNIVERSITY OF Screen 7:49 AM CDT [facility] Test Valid University 12/17/2016 UN[facility]ITY OF [place] [facility] [place] 7:18 AM CDT [facility] BANK w Hospital Specimen 12/20/2016 12/17/2016 UNIVERSITY OF Expires 7:18 AM CDT [facility] Specimen Anatomical Collection Method Collection Time Receive d Time (Source) Location / / Volume Laterality Blood specimen 12/17/2016 6:54 AM 017 6:56 (specimen) CDT AM CDT [facility] - BLOOD [facility] TEST ORDER Performing Organization Address City/State/ZIP Code Phon e Number [facility] [address] [place] [address] [facility] Maternal US OB Limited Single/Multiple (12/16/2016 9:24 [...] DEANN KING Study Date: 8:43am Pat. NO: [id number] Referring ??: CHRIST LOZADA Site: [facility] [employer]: Jay Lu : 1980 Age: 36 INDICATION Premature Rupture of Membranes ( PPROM) Complete previa. METHOD [facility] ANTEPARTUM inpatient exam, Transabd ominal ultrasound [...] Pat. Name:Elizabeth KING Date:12/16 8:43am Pat. NO: [id number] :CHRIST BHAT ON [facility]Yesenia Sen RDMS :1980Age:36 INDICATION Premature Rupture of Membranes ( PPROM) Complete previa. METHOD [facility] ANTEPARTUM inpatient exam, Transabd ominal ultrasound [...] stent with known PPROM. Erum Manzanares MD [facility] ORDERABLES ABO/Rh type and screen (12/14/2016 12:28 AM CDT) [facility] Method Time Signature ABO B 12/14/2016 UNIVERSITY OF 4:01 AM CDT [facility] RH(D) Pos [facility] Antibody Neg 12/14/2016 UNIVERSITY OF Screen 4:01 AM CDT [facility] Test Valid [facility] 12/14/[address] [facility] 1:05 AM CDT [facility] BANK w Hospital Specimen 12/17/2016 12/14/2016 UNIVERSITY OF Expires 1:05 AM CDT [facility] Specimen Anatomical Collection Method Collection Time Receive d Time (Source) Location / / Volume Laterality Blood specimen 12/14/2016 12:28 7 (specimen) AM CDT 12:29 AM CDT Nalini Eli MD LAB - BLOOD BANK TEST ORDER Performing Organization Address City/State/ZIP Code Phon e Number [facility] [address] [place] [address] [facility] Hepatitis B Surface Antibody (12/13/2016 9:42 PM CDT) P athologist Signature Hepatitis B 0.21 <8.00 12/16/2016 UNIVERSITY [facility] m[IU]/mL 11:39 AM CDT [facility] Comment: Nonreactive, No antibody detect ed when the value is less than 8.00 m[IU]/mL. Specimen Anatomical Collection Method Collection Time Receive d Time (Source) Location / / Volume Laterality Blood specimen 12/13/2016 9:42 PM 017 9:43 (specimen) CDT PM CDT Erum Manzanares MD LAB - BLOOD ORDERABLES Performing Organization Address City/[facility]/ZIP Code Phon e Number [address] Hepatitis A Antibody IgG (12/13/2016 9:42 PM CDT) [facility] Method Time Signature Hepatitis A Nonreactive NR^Nonrea 12/16/2016 UNIVERSITY OF Antibody IgG ctive 11:39 AM CDT [facility] Comment: This assay cannot be used for t he diagnosis of acute HAV infection. Specimen Anatomical Collection Method Collection Time Receive d Time (Source) Location / / Volume Laterality Blood specimen 12/13/2016 9:42 PM 017 9:43 (specimen) CDT PM CDT Erum Manzanares MD LAB - BLOOD ORDERABLES Performing Organization Address City/[facility]/ZIP Code Phon e Number [address] Hepatitis B core antibody (12/13/2016 9:42 PM CDT) [facility] Method Time Signature Hepatitis B Nonreactive NR^Nonrea 12/16/2016 UNIVERSITY OF Core Maricruz ctive 11:39 AM CDT [facility] Specimen Anatomical Collection Method Collection Time Receive d Time (Source) Location / / Volume Laterality Blood specimen 12/13/2016 9:42 PM 017 9:43 (specimen) CDT PM CDT Erum Manzanares MD LAB - BLOOD ORDERABLES Performing Organization Address City/[facility]/ZIP Code Phon e Number [address] MR (12/13/2016 2:33 PM CDT) Anatomical [...] percreta. 2. Oligohydramnios. ZARINA THOMAS MD Nora Mohamud [facility] MRI ORDERABLES Maternal US OB Limited Single/Multiple [...] DEANN KING Study Date: 7:48am Pat. NO: [id number] Referring ??: CHRIST LOZADA Site: [facility] [employer]: Jay Lu : 1980 Age: 36 INDICATION Premature Rupture of Membranes ( PPROM), Complete Previa. METHOD [facility] ANTEPARTUM inpatient exam, Transabd ominal and [...] the end of the ultrasound. Please see [facility] for further documentation regarding plan of care. If you have questions regarding today's evaluation or if we can be of further service, please contact the [facility]. anomalies may be present but not detected. Procedure Note CrossNora MD - 12/12/2016For matting of this note might be different from the original. Cx TV Pat. Name:Elizabeth KING Date:12/12 7:48am Pat. NO: [id number] :CHRIST BHAT ON [facility]Yesenia Sen RDMS :1980Age:36 INDICATION Premature Rupture of Membranes ( PPROM), Complete Previa. METHOD [facility] ANTEPARTUM inpatient exam, Transabd ominal and [...] the end of the ultrasound. Please see EP[facility] for further documentation regarding plan of care. [...] placental-myometrial interface appears normal. Nora Munguia Cade [facility] US ORDERABLES ABO/Rh type and screen (12/11/2016 9:05 AM CDT) [facility] Method Time Signature ABO B 12/11/2016 UNIVERSITY OF 10:14 AM CDT [facility] RH(D) Pos [facility] Antibody Neg 12/11/2016 UNIVERSITY OF Screen 10:14 AM CDT [facility] Test Valid [facility] 12/11/2016 UN[facility]ERSITY OF [place] [facility] [place] 9:21 AM CDT [facility] BANK w Hospital Specimen 12/14/2016 12/11/2016 UNIVERSITY OF Expires 9:21 AM CDT [facility] Specimen Anatomical Collection Method Collection Time Receive d Time (Source) Location / / Volume Laterality Blood specimen 12/11/2016 9:05 AM 017 9:06 (specimen) CDT AM CDT Nalini Eli MD LAB - BLOOD BANK TEST ORDER Performing Organization Address City/State/ZIP Code Phon e Number [facility] [address] [place] [address] [facility] Echocardiogram Complete (12/10/2016 9:05 AM CDT) Anatomical Region Laterality Modality Echocardiography Specimen (Source) Anatomical Collection Method Collection Time Re ceived Time Location / / Volume Laterality 12/10/2016 8:00 AM CDT Narrative 12/10/2016 9:23 AM CDT [id number]^CROSS^NORA^VINCE ?Study ID: [id number] ?[facility] ?[address] ?[place] [address] ? Echocardiogram __ Name: DEANN KING Study Date: 12/10/2016 08:00 AM ? Patient Location: [facility] Gender: Female ?Patient Class: Inpatient : 1980 ? Age: 36 yrs Ordering Provider: NORA MOHAMUD Performed By: Krys Servin RDCS Reading Physician: Brice Lloyd MD Reason For Study: Other, Please Specify in Comments Data: Number of fetuses: This is a espinoza gestation. Due date: 03/07/2017. Gestational age: 27w4d. Deanna very at: [place]. Specific Indication: echocar diogram performed for family [...] the left atriu m. There is laminar ggjpk-hf-thtg shunting across the foramen ovale. Atrioventricular valves: [...] Procedure Note Brice Lloyd MD - [id number]^CADE^NORA^VINCE Study ID: [id number] [facility] [address] [address] Echocardiogram __ Name: DEANN KING Study Date: 12/10/2016 08:00 AM Patient Location: [facility] Gender: Female Patient Class: Inpatient : 1980 Age: 36 yrs Ordering Provider: NORA MOHAMUD Performed By: Krys Servin RDCS Reading Physician: Brice Lloyd MD Reason For Study: Other, Please Specify in Comments Data: Number of fetuses: This is a espinoza gestation. Due date: 03/07/2017. Gestational age: 27w4d. Deli very at: [place]. Specific Indication: echocar diogram performed for family [...] the left atriu m. There is laminar usokv-ro-nwhe shunting across the foramen ovale. Atrioventricular valves: [...] Brice Lloyd MD 12/10/2016 09:23 AM Nora Mohamud CV PEDS ECHO ORDERABLES Maternal US Comprehensive Single [...] DEANN KING Study Date: 9:10am Pat. NO: [id number] Referring ??: CHRIST LOZADA Site: [facility] [employer]: Jay Lu : 1980 Age: 36 INDICATION Premature Rupture of Membranes ( PPROM) Complete previa. METHOD Transabdominal ultrasound examination, [facility] ANTEPARTUM inpatient exam. View: Suboptimal view: limited [...] 2 lb 1 ?oz Calculated by ?Hadlock ([id number]) Head / Face / Neck Biometry: Manager Of Financial ?3.9 ?mm ? Amniotic Fluid / FHR: [...] Pat. Name:Elizabeth KING Date:12/08 9:10am Pat. NO: [id number] MD:CHRIST BHAT ON [facility]Yesenia Sen RDMS :1980Age:36 INDICATION Premature Rupture of Membranes ( PPROM) Complete previa. METHOD Transabdominal ultrasound examination, [facility] ANTE[facility] inpatient exam. View: Suboptimal view: limited [...] (lb,oz) 2 lb 1 oz Calculated by Hadlock ([id number]) Head / Face / Neck Biometry: Manager Of Financial 3.9 mm Amniotic Fluid / FHR: AF [...] MARCELLA consistent with PPROM. Rossana Barker MD IMG MFM US ORDERABLES Wound Culture Aerobic Bacterial (12/07/2016 6:00 PM CDT) [facility] Method Time Signature Specimen Leg Wound INFECTIOUS [...] Code Phon e Number INFECTIOUS DISEASES [address] [place] [address] DIAGNOSTIC LABORATORY, [facility] INFECTIOUS DISEASE [address] [place] [address], [facility] DIAGNOSTIC LABORATORY Methicillin resistant staph aureus cult (12/07/2016 6:00 PM CDT) [facility] Method Time Signature Specimen Wound [facility] OF [facility] EAST BANK Special Specimen 12/07/2016 UNIVERSITY OF Requests collected in 7:06 PM CDT [facility] (white cap) Culture Micro Canceled, 12/07/2016 UNIVERSITY OF Test credited 8:13 PM CDT [facility] Culture Micro Test 12/07/[address] [facility]13 PM CDT [facility] Specimen Anatomical Collection Method Collection Time Receive d Time (Source) Location / / Volume Laterality Specimen from 12/07/2016 6:00 PM 12/08/19 17 6:21 wound (specimen) CDT PM CDT Rossana Barker MD LAB - MICRO GENERAL ORDERABL ES Performing Organization Address City/[facility]/ZIP Code Phon e Number [facility] [address] [place] [address] JEROME TSH with free T4 reflex (12/07/2016 3:43 PM CDT) P athologist Signature TSH 3.09 0.40 - 4.00 12/09/2016 [facility] mU/L 5:39 PM CDT [facility] Specimen Anatomical Collection Method Collection Time Receive d Time (Source) Location / / Volume Laterality 12/07/2016 3:43 PM 7 3:44 CDT PM CDT Nora Leyva MD LAB - BLOOD ORDERABLES Performing Organization Address City/[facility]/ZIP Code Phon e Number [facility] [address] [place] [address] [facility] Rubella Antibody IgG Quantitative (12/07/2016 3:43 PM CDT) Analysis Performed At Patho logist Time Signature Rubella Antibody 7 IU/mL 12/09/2016 DUNDAS O F IgG Quantitative 11:02 AM CDT [facility] Comment: Negative Reference Range: ??Unvaccinated Negative 0-7 IU/mL Vaccinated or previous exposure Positive 10 IU/ml or greater Specimen Anatomical Collection Method Collection Time Receive d Time (Source) Location / / Volume Laterality 12/07/2016 3:43 PM 7 3:44 CDT PM CDT Nora Leyva MD LAB - BLOOD ORDERABLES Performing Organization Address City/[facility]/ZIP Code Phon e Number [facility] [address] [place] [address] [facility] (ABNORMAL) Hepatitis C RNA quantitative (12/07/2016 3:43 PM CDT) Patholo gist Method Time Signature HCV RNA Quant [id number] HCVND^HCV 12/09/2016 UN[facility]ERSITY OF IU/ml (A) RNA Not 12:19 PM CDT [facility] EAST [IU]/mL BANK Comment: The LEONARDO [...] (H) <1.2 Log IU/mL 12/09/2016 12:19 PM [facility] Qt [facility] BANK Specimen Anatomical Collection Method Collection Time Receive d Time (Source) Location / / Volume Laterality Blood specimen 12/07/2016 3:43 PM 017 3:44 (specimen) CDT PM CDT Nora Leyva MD LAB - BLOOD ORDERABLES Performing Organization Address City/State/ZIP Code Phon e Number [facility] [address] [place], [place] [id number] [place] [address] hemoglobin stain Kleihauer (12/07/2016 3:43 PM CDT) [facility] Method Time Signature Kleihauer-Bet No cells seen 12/07/2016 UNIVE RSITY OF ke Rhogam not required 7:22 PM CDT MD MEDIC AL Patient Rh positive [facility] T Test performed at [place] BANK Specimen Anatomical Collection Method Collection Time Receive d Time (Source) Location / / Volume Laterality Blood specimen 12/07/2016 3:43 PM 017 3:45 (specimen) CDT PM CDT Nora Leyva MD LAB - BLOOD BANK TEST ORDER Performing Organization Address City/State/ZIP Code Phon e Number [facility] [address] [place] [address] [facility] Fibrinogen activity (12/07/2016 3:43 PM CDT) P athologist Signature Fibrinogen 362 200 - 420 12/07/2016 UNIVERSITY OF mg/dL 5:44 PM CDT [facility] Specimen Anatomical Collection Method Collection Time Receive d Time (Source) Location / / Volume Laterality Blood specimen 12/07/2016 3:43 PM 017 3:44 (specimen) CDT PM CDT Nora Leyva MD LAB - BLOOD ORDERABLES Performing Organization Address City/[facility]/ZIP Code Phon e Number [address] [address] [facility] Partial thromboplastin time (12/07/2016 3:43 PM CDT) P athologist Signature PTT 27 22 - 37 sec 12/07/2016 [facility] 5:44 PM CDT [facility] Specimen Anatomical Collection Method Collection Time Receive d Time (Source) Location / / Volume Laterality Blood specimen 12/07/2016 3:43 PM 017 3:44 (specimen) CDT PM CDT Nora Leyva MD LAB - BLOOD ORDERABLES Performing Organization Address City/[facility]/ZIP Code Phon e Number [address] [address] [facility] INR (12/07/2016 3:43 PM CDT) P athologist Signature INR 1.06 0.86 - 1.14 12/07/2016 [facility] 5:44 PM T [facility] Specimen Anatomical Collection Method Collection Time Receive d Time (Source) Location / / Volume Laterality Blood specimen 12/07/2016 3:43 PM 017 3:44 (specimen) CDT PM CDT Nora Leyva MD LAB - BLOOD ORDERABLES Performing Organization Address City/[facility]/ZIP Code Phon e Number [address] [address] [facility] (ABNORMAL) Comprehensive metabolic panel (12/07/2016 3:43 PM CDT) P athologist Signature Sodium 141 133 - 144 12/07/2016 UNIVERSITY OF mmol/L 4:08 PM CDT [facility] Potassium 3.4 3.4 - 5.3 12/07/2016 UNIVERSITY OF mmol/L 4:08 PM CDT [facility] Chloride 108 94 - 109 12/07/2016 UNIVERSITY OF mmol/L 4:08 PM [facility] Carbon Dioxide 21 20 - 32 12/07/2016 UNIVERSITY OF mmol/L 4:08 PM [facility] Anion Gap 12 3 - 14 12/07/2016 UNIVERSITY OF mmol/L 4:08 PM [facility] Glucose 88 70 - 99 12/07/2016 UNIVERSITY OF mg/dL 4:08 PM [facility] Urea Nitrogen 6 (L) 7 - 30 12/07/2016 UNIVERSITY OF mg/dL 4:08 PM [facility] Creatinine 0.55 0.52 - 12/07/2016 UNIVERSITY OF 1.04 mg/dL 4:08 PM [facility] GFR Estimate >90 >60 12/07/2016 [facility] mL/min/1.7 4:[address] Comment: Non GFR Calc GFR Estimate If >90 >60 mL/min/1.7m2 12/07/2016 4:08 P M [facility] Black [facility] Comment: GFR Calc Calcium 8.1 (L) 8.5 - 10.1 12/07/2016 4:08 PM [facility] mg/dL [facility] Bilirubin Total 0.4 0.2 - 1.3 12/07/2016 4:08 PM [facility] mg/dL [facility] Albumin 2.5 (L) 3.4 - 5.0 g/dL 12/07/2016 4:08 PM [facility] Protein Total 6.1 (L) 6.8 - 8.8 g/dL 12/07/2016 4:08 PM [facility] Alkaline Phosphatase 69 40 - 150 U/L 12/07/2016 4:08 PM [facility] ALT 26 0 - 50 U/L 12/07/2016 4:08 PM [facility] AST 21 0 - 45 U/L 12/07/2016 4:08 PM [facility] Specimen Anatomical Collection Method Collection Time Receive d Time (Source) Location / / Volume Laterality Blood specimen 12/07/2016 3:43 PM 017 3:44 (specimen) CDT PM CDT Nora Leyva MD LAB - BLOOD ORDERABLES Performing Organization Address City/State/ZIP Code Phon e Number [facility] [address] [place] [address] [facility] Urine Culture Aerobic Bacterial (12/07/2016 2:55 PM CDT) Component Value Ref Test Analysis Performed At [facility] Range Method Time Signature Specimen Unspecified Urine INFECTIOUS Description DISEASE DIAGNOSTIC LABORATORY Special Specimen received 12/07/2016 [facility] in preservative 7:19 PM CDT [facility] Culture Micro >100,000 colonies/mL 12/08/2016 INFE CTIOUS mixed urogenital evelina 8:55 PM CDT DISEA SE Susceptibility testing not routinely done DIAGNOSTIC LABORATORY Specimen (Source) Anatomical Collection Method Collection Time Re ceived Time Location / / Volume Laterality Unspecified Urine 12/07/2016 2:55 017 3:51 PM CDT PM CDT Nora Leyva MD LAB - MICRO GENERAL ORDERABL ES Performing Organization Address City/[facility]/ZIP Code Phon e Number INFECTIOUS DISEASES [address] [place] [address] DIAGNOSTIC LABORATORY, [facility] INFECTIOUS DISEASE [address] DIAGNOSTIC LABORATORY [id number] [place] [address] (ABNORMAL) UA reflex to Microscopic and Culture (12/07/2016 2:55 PM CDT) [facility] Method Time Signature Color Urine Yellow 12/07/2016 [facility] 3:37 PM CDT [facility] Appearance Urine Clear 12/07/2016 D[facility] O F 3:37 PM CDT [facility] Glucose Urine Negative NEG^Negat 12/07/2016 [facility] paula mg/dL 3:37 PM CDT [facility] Bilirubin Urine Negative NEG^Negat 12/07/2016 [facility] paula 3:37 PM CDT [facility] Ketones Urine Negative NEG^Negat 12/07/2016 [facility] paula mg/dL 3:37 PM CDT [facility] Specific [place] 1.015 1.003 - 12/07/2016 [place] [facility] F Urine 1.035 3:37 PM CDT [facility] Blood Urine Negative NEG^Negat 12/07/2016 [facility] paula 3:37 PM CDT [facility] pH Urine 6.5 5.0 - 7.0 12/07/2016 [facility] pH 3:37 PM T [facility] Protein Albumin 10 (A) NEG^Negat 12/07/2016 [facility] Urine paula mg/dL 3:37 PM T [facility] Urobilinogen Normal 0.0 - 2.0 12/07/2016 [facility] mg/dL mg/dL 3:37 PM T [facility] Nitrite Urine Negative NEG^Negat 12/07/2016 [facility] paula 3:37 PM T [facility] Leukocyte Moderate (A) NEG^Negat 12/07/2016 [facility] Esterase Urine paula 3:37 PM [facility] Source Midstream 12/07/2016 [facility] Urine 3:23 PM [facility] RBC Urine 1 0 - 2 12/07/2016 [facility] /HPF 3:49 PM [facility] WBC Urine 7 (H) 0 - 2 12/07/2016 [facility] /HPF 3:49 PM [facility] Bacteria Urine Few (A) NEG^Negat 12/07/2016 [facility] paula /HPF 3:49 PM [facility] Squamous 1 0 - 1 12/07/2016 [facility] Epithelial /HPF /HPF 3:49 PM [facility] Mucous Urine Present (A) NEG^Negat 12/07/2016 [facility] paula /LPF 3:49 PM [facility] Specimen (Source) Anatomical Collection Method Collection Time Re ceived Time Location / / Volume Laterality Examination of URINE SPECIMEN 12/07/2016 2:55 12/08/19 17 3:22 midstream urine OBTAINED BY CLEAN PM CDT PM T specimen CATCH PROCEDURE / (procedure) Unknown Nora Leyva MD LAB - URINE ORDERABLES Performing Organization Address City/State/ZIP Code Phon e Number U OF [facility] [address] [place] [address] [facility] Drug abuse scrn 7 UR (/) (RH, SH, UR) (12/07/2016 2:55 PM CDT) [facility] Method Time Signature Amphetamine Qual Negative NEG^Negat 12/07/2016 [facility] F Urine paula 3:48 PM CDT [facility] Comment: Cutoff for a negative amphetami ne is 500 ng/mL or less. Cannabinoids Qual Negative NEG^Negative 12/07/2016 3:48 PM [facility] Urine [facility] Comment: Cutoff for a negative cannabino id is 50 ng/mL or less. Cocaine Qual Urine Negative NEG^Negative 12/07/2016 3:48 PM [facility] Comment: Cutoff for a negative cocaine i s 300 ng/mL or less. Opiates Qualitative Negative NEG^Negative 12/07/2016 3:48 P M [facility] Urine [facility] Comment: Cutoff for a negative opiate is 300 ng/mL or less. Pcp Qual Urine Negative NEG^Negative 12/07/2016 3:48 PM CDT [facility] Comment: Cutoff for a negative PCP is 25 ng/mL or less. Specimen Anatomical Collection Method Collection Time Receive d Time (Source) Location / / Volume Laterality Urine specimen URINE SPECIMEN 12/07/2016 2:55 PM 12/07 3:22 (specimen) OBTAINED BY CLEAN CDT PM CDT CATCH PROCEDURE / Unknown Nora Leyva MD LAB - URINE ORDERABLES Performing Organization Address City/State/ZIP Code Phon e Number [facility] [address] [place] [address] [facility] Chlamydia trachomatis PCR (12/07/2016 2:54 PM CDT) [facility] Method Time Signature Specimen Vagina 12/07/2016 [facility] Description 3:13 PM CDT [facility] Chlamydia Negative NEG^Negat 12/08/2016 [facility] Trachomatis PCR paula 1:55 PM CDT [facility] Comment: Negative for C. trachomatis rRNA by prescott scription mediated amplification. A negative result by manager stylist media kris amplification does not preclude the [...] MICRO GENERAL ORDERABL ES Performing Organization Address [facility] Phon e Number [id number] [place] [address] Neisseria gonorrhoeae PCR (12/07/2016 2:54 PM CDT) Analysis Performed At Patho logist Time Signature Specimen Vagina 12/07/2016 [facility] Descrip 3:13 PM CDT [facility] N Gonorrhea Negative NEG^Negati 12/08/2016 [facility] PCR ve 1:55 PM CDT [facility] Comment: Negative for N. gonorrhoeae rRNA by prescott scription mediated amplification. A negative result by manager stylist media kris amplification does not preclude the [...] MICRO GENERAL ORDERABL ES Performing Organization Address [facility] Code Phon e Number [id number] [place] [address] Wet prep (12/07/2016 2:54 PM CDT) Component Value Ref Test Analysis Performed At Patholo gist Range Method Time Signature Specimen Vagina [facility] Description [facility] Wet Prep No Trichomonas 12/07/2016 [facility] seen 3:34 PM CDT [facility] Wet Prep No yeast seen 12/07/2016 [facility] 3:34 PM CDT [facility] Wet Prep Moderate 12/07/2016 [facility] PMNs seen 3:34 PM CDT [facility] Wet Prep No clue cells 12/07/2016 [facility] seen 3:34 PM CDT [facility] Specimen Anatomical Collection Method Collection Time Receive d Time (Source) Location / / Volume Laterality Specimen from 12/07/2016 2:54 PM 12/08/19 17 3:10 vagina CDT PM CDT (specimen) Nora Leyva MD LAB - MICRO GENERAL ORDERABL ES Performing Organization Address City/[facility]/ZIP Code Phon e Number [address] [address] [facility] (ABNORMAL) Group B strep PCR (12/07/2016 2:54 PM CDT) [facility] gist Method Time Signature Group B Strep Vaginal 12/07/2016 [facility] PCR Spec Valdemar Rectal 2:58 PM CDT [facility] Group B Strep Positive (A) NEG^Negat 12/08/2016 [facility] F PCR paula 1:27 PM CDT [facility] Comment: Positive: GBS DNA detected, presumed pos itive for GBS. Assay performed on incubated broth cultu re of specimen using [employer] real-time PCR. Specimen Anatomical Collection Method Collection Time Receive d Time (Source) Location / / Volume Laterality Vaginal Rectal 12/07/2016 2:54 PM 017 3:14 CDT PM CDT Nora Leyva MD LAB - MICRO GENERAL ORDERABL ES Performing Organization Address City/[facility]/ZIP Code Phon e Number [facility] [address] [place], [place] [phone] [place] [id number] [facility] ABO/Rh type and screen (12/07/2016 2:41 PM CDT) [facility] Method Time Signature ABO B 12/07/2016 [facility] 6:08 PM CDT [facility] RH(D) Pos [facility] Antibody Neg 12/07/2016 [facility] Screen 6:08 PM CDT [facility] Test Valid University 12/07/2016 [facility] 5:31 PM CDT [facility] [facility] Specimen 12/10/2016 12/07/2016 [facility] Expires 5:31 PM CDT [facility] Specimen Anatomical Collection Method Collection Time Receive d Time (Source) Location / / Volume Laterality Blood specimen 12/07/2016 2:41 PM 017 2:44 (specimen) CDT PM CDT Rossana Barker MD LAB - BLOOD BANK TEST ORDER Performing Organization Address City/[facility] Phon e Number [address] [address] [facility] (ABNORMAL) CBC with platelets (12/07/2016 2:41 PM CDT) [facility] Method Time Signature WBC 8.4 4.0 - 11.0 12/07/2016 [facility] 10e9/L 2:47 PM CDT [facility] RBC Count 3.10 (L) 3.8 - 5.2 12/07/2016 [facility] 10e12/L 2:47 PM CDT [facility] Hemoglobin 9.4 (L) 11.7 - 12/07/2016 [facility] 15.7 g/dL 2:47 PM CDT [facility] Hematocrit 28.2 (L) 35.0 - 12/07/2016 [facility] 47.0 % 2:47 PM CDT [facility] MCV 91 78 - 100 12/07/2016 [facility] fl 2:47 PM CDT [facility] MCH 30.3 26.5 - 12/07/2016 [facility] 33.0 pg 2:47 PM CDT [facility] MCHC 33.3 31.5 - 12/07/2016 [facility] 36.5 g/dL 2:47 PM CDT [facility] RDW 17.1 (H) 10.0 - 12/07/2016 [facility] 15.0 % 2:47 PM CDT [facility] Platelet Count 185 150 - 450 12/07/2016 [facility] 10e9/L 2:47 PM CDT [facility] Specimen Anatomical Collection Method Collection Time Receive d Time (Source) Location / / Volume Laterality Blood specimen 12/07/2016 2:41 PM 017 2:42 (specimen) CDT PM CDT Rossana Barker MD LAB - BLOOD ORDERABLES Performing Organization Address City/[facility]/ZIP Code Phon e Number [address] [address] [facility] ([facility]NORMAL) Referral sensitivity (12/07/2016 1:27 PM CDT) Component Value Ref Test Analysis Performed At [facility] Range Method Time Signature Specimen Vaginal [...] Code Phon e Number INFECTIOUS DISEASES [address] [place] [address] DIAGNOSTIC LAB[facility]ORY, [facility] INFECTIOUS DISEASE [address] [place] [address], [facility] documented in this encounter Visit [...] rupture of membranes in pregna ncy, delivered S/P emergency hysterectomy 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 Given 12/23/2016 8:03 AM WINCH DERRICK OPERATOR 650 mg Given 12/22/2016 7:05 PM WINCH DERRICK OPERATOR 650 mg acetaminophen (TYLENOL) tablet 975 mg Given 12/27/2016 12:40 PM WINCH DERRICK OPERATOR 975 mg 975 mg, Oral, EVERY 8 HOURS, First dose on Fri12/25/16 at 0000, For 3 days, Do not use if patient has an active opioid/acetaminophen analgesic order for pain Maximum acetaminophen dose from all sources = 75 mg/kg/day not to exceed 4 grams/day., Post-procedure Given 12/27/2016 2:07 AM WINCH DERRICK OPERATOR 975 mg Given 12/26/2016 6:00 PM WINCH DERRICK OPERATOR 975 mg amoxicillin (AMOXIL) capsule 250 mg [...] mg bacitracin ointment Given 12/27/2016 8:12 AM WINCH DERRICK OPERATOR Topical, 3 TIMES DAILY, First dose on 12/22/16 at 1400, Apply to areas of picking. Given 12/25/2016 1:01 PM WINCH DERRICK OPERATOR Given 12/24/2016 7:56 AM WINCH DERRICK OPERATOR benzocaine (ORAJEL MAXIMUM STRENGTH) 20 % gel Given 12/24/2016 9:19 AM WINCH DERRICK OPERATOR Mouth/Throat, 4 TIMES DAILY PRN, moderate pain, Starting on Fri12/23/16 at 0935, Apply to side of tongue near sore betamethasone acet & sod phos (CELESTONE) Given 12/08/2016 3:06 PM CDT 12 mg injection 12 mg 12 mg, Intramuscular, EVERY 24 HOURS, First dose on Fri12/07/16 at 1515, For 2 doses Given 12/07/2016 3:32 PM CDT 12 mg bisacodyl (DULCOLAX) Suppository 10 mg Given 12/25/2016 9:53 PM WINCH DERRICK OPERATOR 10 mg 10 mg, Rectal, DAILY PRN, constipation, Starting on Fri12/25/16 at 2148, Start POD 2, Post-procedure buprenorphine (SUBUTEX) sublingual table t 2 mg Given 12/27/2016 8:10 AM WINCH DERRICK OPERATOR 2 mg 2 mg, Sublingual, 5 TIMES DAILY, First dose on Fri12/07/16 at 1545 Given 12/27/2016 4:06 AM WINCH DERRICK OPERATOR 2 mg Given 12/26/2016 10:38 PM WINCH DERRICK OPERATOR 2 mg buPROPion (WELLBUTRIN SR) 12 hr tablet 1 50 mg Given 12/27/2016 8:10 AM WINCH DERRICK OPERATOR 150 mg 150 mg, Oral, DAILY, First dose on Fri12/17/16 at 0800, DO NOT CRUSH. Given 12/26/2016 8:23 AM WINCH DERRICK OPERATOR 150 mg Given 12/25/2016 7:52 AM WINCH DERRICK OPERATOR 150 mg carbamide peroxide (DEBROX) 6.5 % otic Given 12/23/2016 8:16 PM WINCH DERRICK OPERATOR 3 drops solution 3 drop 3 drop, Right Ear, 2 TIMES DAILY, First dose on Fri12/17/16 at 2000 Given 12/23/2016 8:49 AM WINCH DERRICK OPERATOR 3 drops Given 12/22/2016 7:52 PM WINCH DERRICK OPERATOR 3 drops clindamycin (CLEOCIN) infusion 900 New Bag 12/25/2016 1:32 PM WINCH DERRICK OPERATOR 900 mg 50 mL/hr mg Routine, 900 mg, Intravenous, EVERY 8 HOURS, First dose on Fri12/25/16 at 0430, For 24 hours, Indications: Perioperative Pharmacoprophylaxis New Bag 12/25/2016 6:19 AM WINCH DERRICK OPERATOR 900 mg 50 mL/hr cyclobenzaprine (FLEXERIL) tablet 10 mg Given 12/23/2016 10:10 PM WINCH DERRICK OPERATOR 10 mg 10 mg, Oral, AT BEDTIME PRN, muscle spasms, Starting on Fri12/09/16 at 2342 Given 12/22/2016 11:17 PM WINCH DERRICK OPERATOR 10 mg Given 12/21/2016 10:15 PM CDT 10 mg diphenhydrAMINE (BENADRYL) capsule 25 mg Given 12/25/2016 7:23 PM WINCH DERRICK OPERATOR 25 mg 25 mg, Oral, EVERY 6 [...] emollient (VANICREAM) cream Given 12/24/2016 9:19 AM WINCH DERRICK OPERATOR Topical, EVERY 2 HOURS PRN, other, area of dry skin, Starting on Fri12/15/16 at 1239, Apply to areas of dry skin fentaNYL (PF) (SUBLIMAZE) injection 50 m cg Given 12/25/2016 1:03 AM WINCH DERRICK OPERATOR 50 mcg 50 mcg, Intravenous, EVERY 2 [...] 100 mcg., PACU Given 12/25/2016 12:48 AM WINCH DERRICK OPERATOR 50 mcg Given 12/25/2016 12:26 AM WINCH DERRICK OPERATOR 50 mcg fluconazole (DIFLUCAN) tablet 150 mg Given 12/24/2016 7:49 AM WINCH DERRICK OPERATOR 150 mg Routine, 150 mg, Oral, ONCE, On Fri12/24/16 at 0800, For 1 dose, Indications: Candidiasis gentamicin (GARAMYCIN) 120 mg in NaCl 0.9 % New Bag 09/2016 8:34 PM WINCH DERRICK OPERATOR 120 mg 100 mL intermittent infusion Routine, 120 mg, Intravenous, EVERY 8 HOURS, First dose on Fri12/25/16 at 0500, For 24 hours, Indications: Perioperative Pharmacoprophylaxis New Bag 12/25/2016 12:18 PM WINCH DERRICK OPERATOR 120 mg New Bag 12/25/2016 5:01 AM WINCH DERRICK OPERATOR 120 mg hydrocortisone (CORTAID) 1 % cream Given 12/27/2016 8:12 AM WINCH DERRICK OPERATOR Topical, 2 TIMES DAILY, First dose on Fri12/17/16 at 2115, Apply to upper arms and left abdomen Given 12/25/2016 8:09 AM WINCH DERRICK OPERATOR Given 12/23/2016 8:48 AM WINCH DERRICK OPERATOR Left Arm HYDROmorphone (DILAUDID) Loading Dose Given 12/25/2016 3:[address] 0.2 mg administered from FORENSICS ANALYST 0.2-0.3 mg 0.2-0.3 mg, Intravenous, FORENSICS ANALYST LOADING DOSE, On Fri12/25/16 at 0000, For 1 dose, LOADING DOSE (bolus) with start of FORENSICS ANALYST. DO NOT GIVE IF A LOADING BOLUS DOSE HAS ALREADY BEEN GIVEN. (If loading dose not given from FORENSICS ANALYST, bar code scan must be overridden to chart dose)., Post-procedure HYDROmorphone (DILAUDID) FORENSICS ANALYST 1 New Syringe/Cartridge 12/25/2016 1:00 AM WINCH DERRICK OPERATOR mg/mL FORENSICS ANALYST dose (mg): 0.2, Max FORENSICS ANALYST dose (mg): 0.3, Lockout Interval (min): 10 minutes, FORENSICS ANALYST Continuous Rate (mg/hr): CONTINUOUS RATE IS NOT RECOMMENDED FOR OPIOID NAIVE PATIENTS, Hour Limit (mg): 1.8, First dose on Fri12/25/16 at 0000, Do NOT give any additional opioids while on FORENSICS ANALYST. When transitioning from FORENSICS ANALYST to oral opioids MAY give first oral opioid dose 30 minutes PRIOR to discontinuation of FORENSICS ANALYST., Intravenous, Post-procedure HYDROmorphone (DILAUDID) FORENSICS ANALYST 1 mg/mL Shift Total 12/25/2016 6:24 AM WINCH DERRICK OPERATOR FORENSICS ANALYST dose (mg): 0.2, Max FORENSICS ANALYST dose (mg): 0.3, Lockout Interval (min): 10 minutes, FORENSICS ANALYST Continuous Rate (mg/hr): CONTINUOUS RATE IS NOT RECOMMENDED FOR OPIOID NAIVE PATIENTS, Hour Limit (mg): 2, First dose (after last modification) on Fri12/25/16 at 0430, Do NOT give any additional opioids while on FORENSICS ANALYST. When transitioning from FORENSICS ANALYST to oral opioids MAY give first oral opioid dose 30 minutes PRIOR to discontinuation of FORENSICS ANALYST., Intravenous, Post-procedure Rate/Dose Verify 12/25/2016 4:54 AM WINCH DERRICK OPERATOR 0.3 mg HYDROmorphone (DILAUDID) FORENSICS ANALYST 1 mg/mL Rate/Dose Verify 12/25/2016 9:01 AM WINCH DERRICK OPERATOR FORENSICS ANALYST dose (mg): 0.3, Max FORENSICS ANALYST dose (mg): 0.5, Lockout Interval (min): 10 minutes, FORENSICS ANALYST Continuous Rate (mg/hr): 0.3, MAX Continuous Rate (mg/hr): 0.3, Hour Limit (mg): 3.3, First dose on Fri12/25/16 at 0845, Do NOT give additional opioids orders unless requested by provider., Intravenous HYDROmorphone (PF) (DILAUDID) injection Given 12/26/2016 8:34 AM WINCH DERRICK OPERATOR 0.3 mg 0.2-0.3 mg 0.2-0.3 mg, Intravenous, EVERY 1 HOUR PRN, moderate to severe pain, Starting on Zoe 12/26/16 at 0407, Give IV Push undiluted up to 4 mg. Each 2mg over 2-5 minutes. Given 12/26/2016 6:57 AM WINCH DERRICK OPERATOR 0.3 mg Given 12/26/2016 5:07 AM WINCH DERRICK OPERATOR 0.3 mg HYDROmorphone (PF) (DILAUDID) injection Given 12/26/2016 1:52 AM WINCH DERRICK OPERATOR 0.5 mg 0.3-0.5 mg 0.3-0.5 mg, Intravenous, EVERY 1 HOUR PRN, moderate to severe pain, Starting on Fri12/25/16 at 1559, Give IV Push undiluted up to 4 mg. Each 2mg over 2-5 minutes. Given 12/26/2016 12:31 AM WINCH DERRICK OPERATOR 0.5 mg Given 12/25/2016 10:34 PM WINCH DERRICK OPERATOR 0.5 mg HYDROmorphone (PF) (DILAUDID) injection 0.5 Given 12/25/2016 2:30 AM WINCH DERRICK OPERATOR 0.5 mg mg 0.5 mg, Intravenous, EVERY 10 MIN PRN, other, acute pain.?May administer if Respiratory Rate is greater than 10, Starting on Fri12/25/16 at 0006, If fentanyl is also ordered, use HYDROmorphone if pain control insufficient with fentanyl or a longer acting agent is needed. Max cumulative dose = 2 mg Give IV Push undiluted up to 4 mg. Each 2mg over 2-5 minutes., PACU/Phase II Given 12/25/2016 1:56 AM WINCH DERRICK OPERATOR 0.5 mg Given 12/25/2016 1:31 AM WINCH DERRICK OPERATOR 0.5 mg hydrOXYzine (ATARAX) tablet 50 mg Given 12/08/2016 3:19 AM CDT 50 mg 50 mg, Oral, ONCE, On 12/08/16 at 0315, For 1 dose ibuprofen (ADVIL/MOTRIN) tablet 600 mg Given 12/27/2016 9:24 AM WINCH DERRICK OPERATOR 600 mg 600 mg, Oral, EVERY 6 HOURS RT, First dose (after last modification) on Zoe 12/26/16 at 0800, Ibuprofen to start after toradol finishes Given 12/27/2016 3:07 AM WINCH DERRICK OPERATOR 600 mg Given 12/26/2016 9:01 PM WINCH DERRICK OPERATOR 600 mg indomethacin (INDOCIN) capsule 25 mg [...] injection 30 mg Given 12/26/2016 2:29 AM WINCH DERRICK OPERATOR 30 mg 30 mg, Intravenous, EVERY 6 HOURS PRN, moderate to severe pain, Starting on Fri12/25/16 at 0826, For 24 hours, For ordered doses up to 30 mg, give IV Push undiluted over 2 minutes. Given 12/25/2016 8:23 PM WINCH DERRICK OPERATOR 30 mg Given 12/25/2016 2:04 PM WINCH DERRICK OPERATOR 30 mg lactated ringers BOLUS 1,000 mL New Bag 12/24/2016 6:45 PM WINCH DERRICK OPERATOR 1,000 mLs Intravenous, 1,000 mL, ONCE, On Tu12/24/16 at 1900, For 1 dose, Prior to surgery. IF preeclamptic give only 500 mL, Pre-procedure lactated ringers infusion Rate/Dose Verify 12/07/2016 11:20 PM CDT 50 mL/hr at 50 mL/hr, Intravenous, CONTINUOUS, Starting on 12/07/16 at 1515, Until 12/09/16 at 1712 lactated ringers infusion New Bag 12/25/2016 5:40 PM WINCH DERRICK OPERATOR 125 mL/hr at 125 mL/hr, Intravenous, CONTINUOUS, Starting on Fri12/25/16 at 0430, Until Zoe 12/26/16 at 0911 New Bag 12/25/2016 6:18 AM WINCH DERRICK OPERATOR 125 mL/hr Rate/Dose Change 12/25/2016 5:06 AM WINCH DERRICK OPERATOR 125 mL/hr levothyroxine (SYNTHROID/LEVOTHROID) tablet Given 11/18 7:46 AM CDT 125 mcg 125 mcg 125 mcg, Oral, DAILY, First dose on 12/08/16 at 0800, Separate oral administration of iron- or calcium-containing products and levothyroxine by at least 4 hours. Given 12/09/2016 10:11 AM CDT 125 mcg Given 12/08/2016 8:01 AM CDT 125 mcg levothyroxine (SYNTHROID/LEVOTHROID) tablet Given 12/18 8:10 AM WINCH DERRICK OPERATOR 150 mcg 150 mcg 150 mcg, Oral, DAILY, First dose (after last modification) on Fri12/11/16 at 0800, Separate oral administration of iron- or calcium-containing products and levothyroxine by at least 4 hours. Given 12/26/2016 8:24 AM WINCH DERRICK OPERATOR 150 mcg Given 12/25/2016 7:52 AM WINCH DERRICK OPERATOR 150 mcg lidocaine (LMX4) 4 % kit Given by Other 12/25/2016 8:34 PM WINCH DERRICK OPERATOR Starting on Fri12/25/16 at 1930, For 1 dose, Maria Antonia Hidalgo : cabinet override magic mouthwash suspension (diphenhydramine, lidocaine , aluminum-magnesium & simethicone) 10 mL, Swish & Swallow, EVERY 6 HOURS PA N, mouth sores, Starting on 12/24/16 at 1014 magnesium sulfate 6 g in NS intermittent Given 12/07/2016 3:51 P M CDT 6 g infusion (cmpd premix) 6 g, Intravenous, ONCE, On 12/07/16 at 1530, For 1 dose, Indication: neuroprotection Infuse over 30 minutes per infusion control pump. Stay with patient during loading dose. magnesium sulfate 6 g in NS intermittent Given 12/24/2016 7:15 P M WINCH DERRICK OPERATOR 6 g infusion (cmpd premix) 6 g, Intravenous, ONCE, On Fri12/24/16 at 1900, For 1 dose, Indication: neuroprotection Infuse over 30 minutes per infusion control pump. Stay with patient during loading dose. magnesium sulfate 6 G/100mL infusion Starting on Fri12/24/16 at 1859, For 1 d tarik, Ann Marie Klein : cabinet override magnesium sulfate infusion New [...] injection 4 mg Given 12/22/2016 5:06 PM WINCH DERRICK OPERATOR 4 mg 4 mg, Intravenous, EVERY 6 [...] 10-15 m g Given 12/25/2016 1:18 PM WINCH DERRICK OPERATOR 15 mg 10-15 mg, Oral, EVERY 4 HOURS PRN, moderate to severe pain, Starting on Fri12/25/16 at 1246 oxyCODONE IR (ROXICODONE) tablet 15-20 m g Given 12/27/2016 12:40 PM WINCH DERRICK OPERATOR 20 mg 15-20 mg, Oral, EVERY 3 HOURS PRN, moderate to severe pain, Starting on Fri12/25/16 at 1645, Patient is an opioid tolerant patient and will require higher narcotic doses due to buprenorphine. Given 12/27/2016 9:24 AM WINCH DERRICK OPERATOR 20 mg Given 12/27/2016 6:21 AM WINCH DERRICK OPERATOR 20 mg potassium chloride (KLOR-CON) Packet 20- [...] iron per tablet Given 12/24 7:49 AM WINCH DERRICK OPERATOR 1 tablet 1 tablet 1 tablet, Oral, DAILY, First dose on Fri12/13/16 at 1300 Given 12/23/2016 8:48 AM WINCH DERRICK OPERATOR 1 tablet Given 12/22/2016 8:10 AM WINCH DERRICK OPERATOR 1 tablet senna-docusate (SENOKOT-S;PERICOLACE) Given 12/17/2016 8:05 [...] Fri12/17/16 at 2000 Given 12/23/2016 8:15 PM WINCH DERRICK OPERATOR 1 tablet Given 12/23/2016 8:48 AM WINCH DERRICK OPERATOR 1 tablet senna-docusate (SENOKOT-S;PERICOLACE) Given 12/27/2016 8:10 [...] to opioids., Post-procedure Given 12/26/2016 9:01 PM WINCH DERRICK OPERATOR 2 tablets Given 12/26/2016 8:23 AM WINCH DERRICK OPERATOR 2 tablets simethicone (MYLICON) chewable tablet 80 mg Given 12/26/2016 1:54 PM WINCH DERRICK OPERATOR 80 mg 80 mg, Oral, 4 TIMES DAILY PRN, other, gas, Starting on Fri12/25/16 at 0352, Chew., Post-procedure Given 12/26/2016 6:36 AM WINCH DERRICK OPERATOR 80 mg Given 12/26/2016 12:31 AM WINCH DERRICK OPERATOR 80 mg sodium chloride (OCEAN) 0.65 % nasal spray Given 12/08 10:57 AM CDT 1 spray 1 spray 1 spray, Both Nostrils, EVERY 1 HOUR PRN, congestion, Starting on Fri12/08/16 at 1027 sodium chloride (PF) 0.9% PF flush 3 mL Given 12/18/2016 10:32 PM CDT 3 mLs 3 mL, Intracatheter, EVERY 1 HOUR PRN, line flush, post meds or blood draw, Starting on Fri12/07/16 at 1502, for peripheral IV flush post IV meds Given 12/17/2016 5:12 PM CDT 3 mLs Given 12/09/2016 12:44 PM CDT 3 mLs sodium chloride (PF) 0.9% PF flush 3 mL Given 12/24/2016 3:06 PM WINCH DERRICK OPERATOR 3 mLs 3 mL, Intracatheter, EVERY 8 HOURS, First dose on Fri12/07/16 at 1515, And Q1H PRN, to lock peripheral IV dormant line. Given 12/24/2016 6:16 AM WINCH DERRICK OPERATOR 3 mLs Given 12/23/2016 10:05 PM WINCH DERRICK OPERATOR 3 mLs sodium chloride (PF) 0.9% PF flush 3 mL Given 12/24/2016 6:52 PM WINCH DERRICK OPERATOR 3 mLs 3 mL, Intravenous, EVERY 8 HOURS, First dose on Fri12/24/16 at 1900, And Q1H PRN, to lock peripheral IV dormant line. , Pre-procedure sodium chloride (PF) 0.9% PF flush 3 mL Given 12/26/2016 6:58 AM WINCH DERRICK OPERATOR 3 mLs 3 mL, Intracatheter, EVERY 1 HOUR PRN, line flush, for peripheral IV flush post IV meds, Starting on Fri12/25/16 at 0352, Post-procedure Given 12/26/2016 5:07 AM WINCH DERRICK OPERATOR 3 mLs Given 12/26/2016 1:52 AM WINCH DERRICK OPERATOR 3 mLs sodium chloride (PF) 0.9% PF flush 3 mL Given 12/26/2016 2:29 AM WINCH DERRICK OPERATOR 3 mLs 3 mL, Intracatheter, EVERY 8 HOURS, First dose on Fri12/25/16 at 0400, And Q1H PRN, to lock peripheral IV dormant line., Post-procedure Given 12/25/2016 8:34 PM WINCH DERRICK OPERATOR 3 mLs Given 12/25/2016 12:12 PM WINCH DERRICK OPERATOR 3 mLs sodium citrate-citric acid (BICITRA) 500 -334 MG/5ML solution Starting on Fri12/24/16 at 1850, For 1 dose, Jon Joya : cabinet override sodium citrate-citric acid (BICITRA) solution Given 7:00 PM WINCH DERRICK OPERATOR 30 mLs 30 mL 30 mL, Oral, PRE-OP/PRE-PROCEDURE, Starting on Fri12/24/16 at 1848, For 1 dose, For gastric pH neutralization. GIVE WITHIN 45 minutes PRIOR TO SURGICAL PROCEDURE., Pre-procedure venlafaxine (EFFEXOR-ER) 24 hr tablet 15 0 mg Given 12/27/2016 8:10 AM WINCH DERRICK OPERATOR 150 mg 150 mg, Oral, DAILY WITH BREAKFAST, First dose (after last modification) on Fri12/09/16 at 0800, DO NOT CRUSH. Given 12/26/2016 8:23 AM WINCH DERRICK OPERATOR 150 mg Given 12/25/2016 11:12 AM WINCH DERRICK OPERATOR 150 mg venlafaxine (EFFEXOR-ER) 24 hr tablet 30 0 mg Given 12/08/2016 8:27 AM CDT 150 mg 300 mg, Oral, DAILY WITH BREAKFAST, First dose on Fri12/08/16 at 0800, DO NOT CRUSH. documented in this encounter Active and Recently Administered Medications Times are shown in WINCH DERRICK OPERATOR. Scheduled Medication Order 12/25/2016 12/26/2016 12/27/2016 acetaminophen (TYLENOL) tablet 975 mg 0218 (Auto Hold - Provider: Orders Generic Provider - Reason: Transfer to a procedural area)0247 (Given - Provider: Lisa Rubio RN)0306 (Unhold - Provider: Orders Generic Provider)0751 (Given - P kolbyvider: Fransisca Gates RN) 0822 (Given - Provider: Hyacinth Wolf RN)1800 (Given - Provider: Gudelia Clemons RN) 0207 (Given - Provider: Lucia Cotton RN)1240 (Given - Provider: Brenna Verduzco RN) 975 [...] Reason: Patient/family refused)2239 (Not Given - Provider: Guedlia Clemons RN - Reason: Patient/family refused) 0812 [...] Gudelia Clemons, RN)2238 (Given - Provider: Gudelia Clemons RN) 0406 (Given - Provider: Lucia Cotton RN)0810 (Given - Provider: Brenna Verduzco, GENARO)1300 (Canceled Entry - Provider: Orders Generic Provider [...] (New Bag - Provider: Maria Antonia Hidalgo, RN)2033 (New Bag - Provider: Yessenia Julian, GENARO) 120 mg, Intravenous, EVERY 8 HOURS, Firs t dose on Fri12/25/16 at 0500, For 24 hours, Indications: Perioperative Pharmacoprophylaxis hydrocortisone (CORTAID) 1 % cream 0218 (Auto Hold - P rovider: Orders Generic Provider - Reason: Transfer to a procedural area)0306 (Unhold - Provider: Orders Generic Provider)08 (Given - Provider: Fransisca Gates RN) 1327 (Not Given - Provider: Hyacinth Wolf [...] HYDROmorphone (DILAUDID) Loading Dose ad ministered from FORENSICS ANALYST 0.2-0.3 mg (COMPLETED) 335 (Given - Provider: Khloe Elmore, GENARO) 0.2-0.3 mg, Intravenous, FORENSICS ANALYST LOADING DOS E, Fri12/25/16 at 0000, For 1 dose, LOADING DOSE (bolus) with start of FORENSICS ANALYST. DO NOT GIVE IF A LOADING BOLUS DOSE HAS ALREADY BEEN GIVEN. (If loading dose not given from FORENSICS ANALYST, bar code scan must be overridden to chart dose)., Pos t-procedure HYDROmorphone (DILAUDID) FORENSICS ANALYST 1 mg/mL (CANCELED) 0100 ( New Syringe/Cartridge - Provider: Lisa Rubio, GENARO)0218 (Auto Hold - Provider: Orders Generic Provider - Reason: Transfer to a procedural area)0253 (Unhold - Provider: Marleny Kang MD) FORENSICS ANALYST dose (mg): 0.2, Max FORENSICS ANALYST dose (mg): 0 .3, Lockout Interval (min): 10 minutes, FORENSICS ANALYST Continuous Rate (mg/hr): CONTINUOUS RATE IS NOT RECOMMENDED FOR OPIOID NAIVE PATIENTS, Hour Limit (mg): 1.8, First dos e on Fri12/25/16 at 0000, Do NOT give an y additional opioids while on FORENSICS ANALYST. When transitioning from FORENSICS ANALYST to oral opioids MAY give first oral opioid dose 30 minutes PRIOR to discontinuation of FORENSICS ANALYST., Intravenous, Post-procedure HYDROmorphone (DILAUDID) FORENSICS ANALYST 1 mg/mL (CANCELED) 0454 ( Rate/Dose Verify - Provider: Khloe Elmore RN)0508 (Canceled Entry - Provider: Khloe Elmore RN)0624 (Shift Total - Provider: Khloe Elmore RN) FORENSICS ANALYST dose (mg): 0.2, Max FORENSICS ANALYST dose (mg): 0 .3, Lockout Interval (min): 10 minutes, FORENSICS ANALYST Continuous Rate (mg/hr): CONTINUOUS RATE IS NOT RECOMMENDED FOR OPIOID NAIVE PATIENTS, Hour Limit (mg): 2, First dose on Fri12/25/16 at 0430, Do NOT give any additional opioids while on FORENSICS ANALYST. When transitioning from FORENSICS ANALYST to oral opioids MAY give first oral opioid dose 30 minutes PRIOR to discontinuation of FORENSICS ANALYST., Intravenous, Post-procedure HYDROmorphone (DILAUDID) FORENSICS ANALYST 1 mg/mL (CANCELED) 0845 ( Canceled Entry - Provider: Fransisca Gates RN)0901 (Rate/Dose Verify - Provider: Fransisca Gates RN)1350 (Stopped - Provider: Maria Antonia Hidalgo RN) FORENSICS ANALYST dose (mg): 0.3, Max FORENSICS ANALYST dose (mg): 0 .5, Lockout Interval (min): 10 minutes, FORENSICS ANALYST Continuous Rate (mg/hr): 0.3, MAX Continuous Rate [...] Cotton RN)0635 (Not Given - Provider: Lucia oCtton RN - Reason: Other - Comment: already [...] Elmore RN)0618 (New Bag - Provider: Khloe Elmore, GENARO)1740 [...] diphenhydrAMINE (BENADRYL) capsule 25 mg(Linked Group 1) 192 (Given - Provider: Maria Antonia Hidalgo RN) [...] Lisa Rubio RN)0026 (Given - Provider: Lisa Rubio RN)0048 (Given - Provider: Lisa Rubio, GENARO)0103 (Given [...] RN) 0.2-0.3 mg, Intravenous, EVERY 1 HOUR PA N, Starting Zoe 12/26/16 at 0407, Until Fri12/26/16 at 0911, moderate to severe pain, Give IV Push undiluted up to 4 mg. Each 2mg over 2-5 minutes. HYDROmorphone (PF) (DILAUDID) injection 0.3-0.5 mg (CA NCELED) 1642 (Given - Provider: Maria Antonia Hidalgo RN)1821 (Given - Provider: Maria Antonia Hidalgo RN)1944 (Given - Provider: Maria Antonia Hidalgo RN)2129 (Given - Provider: Yessenia Julian RN)2234 (Given - Provider: Yessenia Julian RN) 0031 (Given - Provider: Lucia Cotton RN)0152 (Given - Provider: Lucia Cotton RN) 0.3-0.5 mg, Intravenous, EVERY 1 HOUR PA N, Starting Fri12/25/16 at 1559, Until Zoe 12/26/16 at 0407, moderate to severe pain, Give IV Push undiluted up to 4 mg. Each 2mg over 2-5 minutes. HYDROmorphone (PF) (DILAUDID) injection 0.5 mg (CANCEL ED) 0120 (Given - Provider: Lisa Rubio RN)0131 (Given - Provider: Lisa Rubio, GENARO)0156 (Given - Provider: Lisa Rubio, GENARO)0230 (Given - Provider: Lisa Rubio RN) 0.5 [...] Antonia Hidalgo, GENARO)2022 (Given - Provider: Yessenia Julian RN) 022 [...] mL, Swish & Swallow, EVERY 6 HOURS PA N, mouth sores, Starting Fri12/24/16 at 1014 [...] Lucia Cotton RN)0601 (Given - Provider: Lucia Cotton RN)0911 (Given - Provider: Hyacinth Wolf RN)1207 (Given - Provider: Hyacinth Wolf RN)1507 (Given - Provider: Hyacinth Wolf RN) 0307 (Given - Provider: Lucia Cotton RN)0621 (Given - Provider: Lucia Cotton RN)0924 (Given - Provider: Brenna Verduzco RN)1240 (Given - Provider: Brenna Verduzco RN) 15-20 mg, Oral, EVERY 3 HOURS PRN, moder ate to severe pain, Starting Fri12/25/16 at 1645, Patient is an opioid tolerant patient and will require higher narcotic doses due to buprenorphine. 1800 (Given - Provider: Maycol Clemons RN)2101 (Given - Provider: Gudelia Clemons RN)2359 (Given - Provider: Lucia Cotton RN) oxytocin [...] EVERY 1 HOUR PRN, Starting Fri12/25/16 at 035, potassium supplementation, Infuse via PERIPHERAL LINE or [...] RN)1826 (Given - Provider: Maria Antonia Hidalgo, RN) 0031 (Given - Provider: Lucia Cotton, GENARO)0636 (Given - Provider: Lucia Cotton, GENARO)1354 (Given - Provider: Hyacinth Wolf RN) 80 [...] 3 mL 0032 (Given - Provider: Lucia Cotton, GENARO)0152 (Given - Provider: Lucia Cotton, GENARO)0507 (Given [...]
Post-procedure documented in this encounter Care Teams Gas Analyst Relationship Specialty Start Date End Date Luis Fernando Magana PCP - General Family Practice 12/07/16 01/19/18 [place] [id number] documented as of this encounter
--- OUTSIDE RECORDS SUMMARY | 2021-11-28 13:47 | XMS_ITS | Encounter Summary ---
:1980 Author Organization [place] Address [address] [facility] [place] [address] Care Team Providers Name Role Phone Luis Fernando Magana Primary Care Provider Reason for Visit Auth/Cert Specialty Diagnoses / Procedures Referred By Contact Refer red To Contact hospice chaplain Diagnoses Maternity*JEAN MARIE: 03/07/2017 Rupture premature rupture of membranes (PPROM) delivered, current hospitalization [facility] [address] [place] [address] Phone: Referral ID Status Reason Start Date Expiration Date Visits Requ ested Visits Authorized [id number] 12/09/2016 12/09/2017 1 1 Encounter Details Date Type Department Care Team Description 12/24/2016 Anesthesia Event [facility] Genesis Phillip M D PeriOp Services Ann Marie Walker MD [address] [place] [address] [address] [place] [address] Anesthesia Record Procedure Summary Procedure Name Responsible Anesthesia Start Anesthesia Stop Anesthesiologist Time Time Section Genesis Phillip MD 12/24/16193412/25/16 0019 Immediate Hysterectomy, Bilateral Salpingectomy and Cystoscopy. Baby Boy born at 20:05 (Abdomen) Events Date Time Event Comment 12/24/2016 193 An Start 1934 An Start Data 1941 An Induction 1956 An Intubation 1956 an tomas now 2002 Uterine Incision 2005 Baby Delivered 2005 Placenta [...] by Left; Upper forearm; Selena Rodriguez RN Thao, Lela johnson RN Chlorhexidine; Tolerated well Peripheral IV 12/24/16; 1855; 18 G; 12/24/16 1855 by 12/25/16 1910 by Right; Upper forearm; Juanis Henson, RN Rocky, Binh Mendoza RN Chlorhexidine; Tolerated well Urethral Catheter 12/24/16; 1948; No; 12/24/161947 by 12/25/16 1545 by /GI/PATIENT SITTER Pelvic Kassy Monteiro RN Drake, Vicki A pediatric care coordinator; 16 fr RETIRED ETT 12/24/16; 1956; Mask 12/24/161956 by 12/24/16 2 358 by Ventilation: Not Erika Tobar Eliza beth attempted (RSI); FARZANA Bishop CRNA, MD of Intubation: Easy; Airway Size: 7; Cuffed; Oral; Blade Type: C-Mac; Blade Size: 3; Place by: Jon Hazel; Insertion Attempts: 1; Secured at (cm)to lip: 22 cm; Breath Sounds: Equal, clear and bilateral; End Tidal CO2: Present; Dentition: Intact; Grade View of Cords: 1 (Direct view not attempted); Airway Adjuncts: C-Mac Peripheral IV 12/24/16; 2101; 18 G; 12/24/16 2102 by 12/25/16 1000 by Left; Lower forearm Erika Tobar Vic ki A, RN Lynn, APRN CRNA Arterial Line 12/24/16; 2102; 12/24/16 210 by 12/25/16 0100 b y 12/25/16; 0100 Erika Tobar Vicki A, RN Lynn, APRN CRNA Incision/Surgical Site 12/24/16; 2255; 12/24/16 2255 by 03/08/20 0104 by Midline; Abdomen; Kassy Monteiro RN Inpatient, Nurse 03/08/20; 0104 Incision/Surgical Site 12/24/16; 2313; 12/24/16 2313 by 12/25/16 0940 by Bilateral; Abdomen; Kassy Monteiro RN Erickson Elier, 12/25/16; 0940 GENARO Gongora documented in this encounter Social History Tobacco Use Types Packs/Day Years Used Date Smoking Tobacco: Every Day Cigarettes 0.1 10 Smokeless Tobacco: Never Comments: 5 cigarettes a day Alcohol Use Standard Drinks/Week Comments Yes 0 (1 standard drink = 0.6 oz pure Stoppe d after found out alcohol) Sex Assigned at Date Recorded Female 01/14/2020 10:57 AM LOAD HAUL DUMP OPERATOR documented as of this encounter OR Notes Anesthesia Postprocedure Evaluation - Genesis Phillip MD - 12/25/2016 2:40 AM LOAD HAUL DUMP OPERATOR Patient: Stephani King Procedure(s): Section Immediate Hysterectomy, [...] Phillip MD December 25, 2016 2:40 AM [facility] Anesthesia Procedure Notes - Genesis Phillip MD - 12/25/2016 12:20 AM CSTAssociated Order(s): ANE UU PERIPHERAL/PARAVETEBRAL BLOCK Peripheral Nerve Block Procedure Note Staff: Anesthesiologist: GENESIS PHILLIP Resident/SUPERVISOR PARKING LOT: ANN MARIE HAZEL Block performed by resident/SUPERVISOR PARKING LOT in the presence of a teaching physician [...] No Infusion Method: Single Shot Complications: None HAUL DUMP OPERATOR Anesthesia Preprocedure Evaluation - Genesis Phillip MD - 12/24/2016 11:25 PM LOAD HAUL DUMP OPERATOR Anesthesia Evaluation . Pt has had prior [...] with Patient. Consented to blood products. . HAUL DUMP OPERATOR Anesthesia Procedure Notes - Erika Tobar APRN CRNA - 12/24/2016 9:12 PM CSTAssociated Order(s): ANE UU A LINE CATHETER PLACEMENT Arterial Line Procedure Note Staff: Anesthesiologist: GENESIS PHILLIP Resident/SUPERVISOR PARKING LOT: ANN MARIE HAZEL Arterial line performed by resident/SUPERVISOR PARKING LOT in presence of a teaching physician Location: [...] Yes IBP within 10% of NIBP: Yes HAUL DUMP OPERATOR documented in this encounter Miscellaneous Notes Anesthesia [...] (Last set prior to Anesthesia Care Transfer) SUPERVISOR PARKING LOT VITALS 12/24/2016 2333 - 12/25/2016 0022 12/25/2016 Pulse: 85 SpO2: (!) 88 % Electronically Signed By: Ann Marie Hazel MD December 25, 2016 12:22 AM HAUL DUMP OPERATOR documented in this encounter Plan of Treatment Upcoming Encounters Date Type Specialty Care Team Description 11/29/2021 Office Visit Wound Care Luis Camara, [place] [address] [place], [place] [address] (Wo rk) 01/21/2022 Office Visit Gastroenterology Juanis Levi [address] [place] [address] Luis Fernando Miles MD [address] [facility] [address] [place], [place] [phone] documented as of this encounter Procedures Procedure Name Priority Date/Time Associated Diagnosis Comme nts ANE Routine 12/25/2016 12:22 AM LOAD HAUL DUMP OPERATOR PERIPHERAL/PARAVETEBRAL BLOCK Procedure Note - Genesis Phillip MD - 12/25/2016 12:20 AM CSTThis note is in progress. Formatting of this note migh t be different from the original. Peripheral Nerve Block Proce dure Note Staff: Anesthesiologist: JOSELUIS PHILLIP Resident/SUPERVISOR PARKING LOT: IMELDA HAZEL Block performed by resident /SUPERVISOR PARKING LOT in the presence of a teaching physician [...] LINE CATHETER PLACEMENT Routine 12/24/2016 9:12 PM LOAD HAUL DUMP OPERATOR Procedure Note - Km Tobar APRN SUPERVISOR PARKING LOT - 12/24/2016 9:12 PM CSTThis note is in progress. Formatting of this note migh t be different from the original. Arterial Line Procedure Note Staff: Anesthesiologist: JOSELUIS PHILLIP Resident/SUPERVISOR PARKING LOT: IMELDA HAZEL Arterial line performed by resident/SUPERVISOR PARKING LOT in presence of a teaching physician Location: [...] cell unit New Bag 12/24/2016 10:05 PM LOAD HAUL DUMP OPERATOR STAT, On Fri12/24/16 at 1940 New Bag 12/24/2016 8:10 PM LOAD HAUL DUMP OPERATOR Transfuse red blood cell unit New Bag 12/24/2016 8:15 PM LOAD HAUL DUMP OPERATOR STAT, On Fri12/24/16 at 1941 Inactive Administered Medications - up to 3 most recent administrations Medication Order MAR Action Action Date Dose Rate Site 0.9% sodium chloride infusion New Bag 12/24/2016 10:04 PM LOAD HAUL DUMP OPERATOR CONTINUOUS PRN, Anesthesia Intra-op, Starting on Fri12/24/16 at 1943, Until Fri12/25/16 at 0019 New Bag 12/24/2016 9:42 PM LOAD HAUL DUMP OPERATOR New Bag 12/24/2016 7:43 PM LOAD HAUL DUMP OPERATOR bupivacaine 0.25 % - EPINEPHrine 1:200,000 Given 12/24/2016 11:50 PM LOAD HAUL DUMP OPERATOR 20 mLs injection PRN, Starting on Fri12/24/16 at 2350, Anesthesia Intra-op bupivacaine liposome (EXPAREL) 1.3 % LA inj Given 08/2016 11:50 PM LOAD HAUL DUMP OPERATOR 20 mLs susp 20 mL 20 mL, Infiltration, DURING SURGERY, Starting on Fri12/24/16 at 2136, For 1 dose, Invert vial to re-suspend particles immediately prior to withdrawal from vial. Stable for 4 hours at room temperature once removed from vial., Intra-procedure calcium chloride injection Given 12/24/2016 9:53 PM LOAD HAUL DUMP OPERATOR 1 g PRN, Starting on Fri12/24/16 at 2037, Anesthesia Intra-op Given 12/24/2016 8:57 PM LOAD HAUL DUMP OPERATOR 1 g Given 12/24/2016 8:37 PM LOAD HAUL DUMP OPERATOR 1 g ceFAZolin (ANCEF) 1 g vial to attach to NS 100 Given 02/24/2016 11:21 PM LOAD HAUL DUMP OPERATOR 1 g ml bag for ADULT or 50 ml bag for PEDS Routine, Intravenous, PRN, Starting on Fri12/24/16 at 1939, Anesthesia Intra-op Given 12/24/2016 9:07 PM LOAD HAUL DUMP OPERATOR 1 g Given 12/24/2016 7:39 PM LOAD HAUL DUMP OPERATOR 2 g ePHEDrine injection Given 12/24/2016 8:58 PM LOAD HAUL DUMP OPERATOR 5 mg Intravenous, PRN, Starting on Fri12/24/16 at 2024, Anesthesia Intra-op Given 12/24/2016 8:35 PM LOAD HAUL DUMP OPERATOR 10 mg Given 12/24/2016 8:24 PM LOAD HAUL DUMP OPERATOR 10 mg fentaNYL (PF) (SUBLIMAZE) injection Given 12/24/2016 11:12 PM LOAD HAUL DUMP OPERATOR 100 mcg PRN, moderate to severe pain, Administer over 3-5 Minutes, Starting on Fri12/24/16 at 2259, Anesthesia Intra-op Given 12/24/2016 10:59 PM LOAD HAUL DUMP OPERATOR 100 mcg HYDROmorphone (DILAUDID) injection Given 12/25/2016 12:15 AM LOAD HAUL DUMP OPERATOR 0.5 mg PRN, moderate to severe pain, Starting on Fri12/24/16 at 2301, Anesthesia Intra-op Given 12/25/2016 12:02 AM LOAD HAUL DUMP OPERATOR 0.5 mg Given 12/24/2016 11:05 PM LOAD HAUL DUMP OPERATOR 0.5 mg lactated ringers infusion New Bag 12/24/2016 8:17 PM LOAD HAUL DUMP OPERATOR at 125 mL/hr, Intravenous, CONTINUOUS, Pre-procedure, Starting on Fri12/24/16 at 1900, Until Fri12/25/16 at 0150 New Bag 12/24/2016 7:35 PM LOAD HAUL DUMP OPERATOR midazolam (VERSED) injection Given 12/24/2016 9:16 PM LOAD HAUL DUMP OPERATOR 2 mg Intravenous, Administer over 2 Minutes, PRN, anxiety, Starting on Fri12/24/16 at 2029, Anesthesia Intra-op Given 12/24/2016 8:29 PM LOAD HAUL DUMP OPERATOR 2 mg ondansetron (ZOFRAN) injection Given 12/24/2016 11:29 PM LOAD HAUL DUMP OPERATOR 4 mg Intravenous, PRN, nausea, vomiting, Administer over 2-5 Minutes, Starting on Fri12/24/16 at 2329, Anesthesia Intra-op oxytocin (PITOCIN) 30 units in New Bag 12/24/2016 8:05 PM LOAD HAUL DUMP OPERATOR 300 mL/hr 300 mL/hr 500 mL 0.9% NaCl infusion CONTINUOUS PRN, Starting on Fri12/24/16 at 2004, Anesthesia Intra-op phenylephrine (VINCENT-SYNEPHRINE) injection 1 Bolus 12/24/2016 9:33 PM LOAD HAUL DUMP OPERATOR 100 mcg mg 1 mg, Intravenous, CONTINUOUS PRN, Starting on Fri12/24/16 at 2013, Anesthesia Intra-op Bolus 12/24/2016 9:23 PM LOAD HAUL DUMP OPERATOR 100 mcg Bolus 12/24/2016 9:13 PM LOAD HAUL DUMP OPERATOR 100 mcg propofol (DIPRIVAN) injection 10 mg/mL v ial Given 12/24/2016 7:56 PM LOAD HAUL DUMP OPERATOR 200 mg Intravenous, PRN, Starting on Fri12/24/16 at 1956, Anesthesia Intra-op rocuronium (ZEMURON) injection Given 12/24/2016 10:12 PM LOAD HAUL DUMP OPERATOR 10 mg Intravenous, PRN, Starting on Fri12/24/16 at 2006, Anesthesia Intra-op Given 12/24/2016 9:28 PM LOAD HAUL DUMP OPERATOR 30 mg Given 12/24/2016 8:54 PM LOAD HAUL DUMP OPERATOR 20 mg succinylcholine (ANECTINE) injection Given 12/24/2016 7:56 PM LOAD HAUL DUMP OPERATOR 200 mg Intravenous, PRN, Starting on Fri12/24/16 at 1956, Anesthesia Intra-op sugammadex (BRIDION) injection Given 12/24/2016 11:50 PM LOAD HAUL DUMP OPERATOR 170 mg PRN, Starting on Fri12/24/16 at 2350, Anesthesia Intra-op Transfuse cryoprecipitate unit New Bag 12/24/2016 11:10 PM LOAD HAUL DUMP OPERATOR Routine, On Fri12/24/16 at 2311 Transfuse plasma unit New Bag 12/24/2016 8:48 PM LOAD HAUL DUMP OPERATOR Routine, On Fri12/24/16 at 2028 Transfuse platelets unit New Bag 12/24/2016 9:19 PM LOAD HAUL DUMP OPERATOR Routine, On Fri12/24/16 at 2119 Transfuse red blood cell unit New Bag 12/24/2016 8:42 PM LOAD HAUL DUMP OPERATOR STAT, On Fri12/24/16 at 2034 Transfuse red blood cell unit New Bag 12/24/2016 9:30 PM LOAD HAUL DUMP OPERATOR STAT, On Fri12/24/16 at 2046 Transfuse red blood cell unit New Bag 12/24/2016 8:59 PM LOAD HAUL DUMP OPERATOR STAT, On Fri12/24/16 at 2046 Transfuse red blood cell unit New Bag 12/24/2016 8:58 PM LOAD HAUL DUMP OPERATOR STAT, On Fri12/24/16 at 204 Transfuse red blood cell unit New Bag 12/24/2016 8:47 PM LOAD HAUL DUMP OPERATOR STAT, On Fri12/24/16 at 2046 Transfuse red blood cell unit New Bag 12/24/2016 10:15 PM LOAD HAUL DUMP OPERATOR STAT, On Fri12/24/16 at 2156 Transfuse red blood cell unit New Bag 12/24/2016 10:50 PM LOAD HAUL DUMP OPERATOR STAT, On Fri12/24/16 at 2156 Transfuse red blood cell unit New Bag 12/24/2016 9:56 PM LOAD HAUL DUMP OPERATOR STAT, On Fri12/24/16 at 2156 documented in this encounter Care Teams Marketing Communications Leader Relationship Specialty Start Date End Date Luis Fernando Magana PCP - General Family Practice 12/07/16 01/19/[address] [address] documented as of this encounter
--- OUTSIDE RECORDS SUMMARY | 2021-11-28 13:47 | XMS_ITS | Encounter Summary ---
:1980 Author Organization [place] Address [address] [facility] [place] [address] Care Team Providers Name Role Phone Luis Fernando Magana Primary Care Provider Reason for Visit Reason Onset Date Comments Refill Request 12/26/2016 Subutex 2 mg, Wellbu ayaka 150 mg Encounter Details Date Type Department Care Team Description 12/26/[address] [facility] Edgar Alfredo, Ref ill Request (Subutex [facility] [place] 2 mg, Wellbutrin [address] [place] ) [address] [place] [phone] (Wo rk) Social History Tobacco Use Types Packs/Day Years Used Date Smoking Tobacco: Every Day Cigarettes 0.1 10 Smokeless Tobacco: Never Comments: 5 cigarettes a day Alcohol Use Standard Drinks/Week Comments Yes 0 (1 standard drink = 0.6 oz pure Stoppe d after found out alcohol) Sex Assigned at Date Recorded Female 01/14/2020 10:57 AM MUTUAL FUND ANALYST documented as of this encounter Miscellaneous Notes Telephone Encounter - Laura Fried RN - 01/06/2017 10:04 AM CST Subutex script called in to [facility] pharmacy. Laura Fried RN AL FUND ANALYST Telephone Encounter - Edgar Alfredo MD - 01/03/2017 12:43 PM CST Please call in Subutex ordered AL FUND ANALYST Telephone Encounter - Laura Fried RN - 12/27/2016 7:55 AM CST Controlled Substance Refill Request for Subutex Last refill: 12/05/16, 120 tablets, 24 day supply Last clinic visit: 10/10/16 Next appt: 01/23/17 Controlled substance agreement on file: No. Documentation in problem list reviewed: Yes Processing: Fax Rx to pt's pharmacy RX monitoring program ([place]) reviewed: FIBER GLASS WORKER reviewed- no concerns [place] profile: [email or web address] Thank you! Laura Fried RN AL FUND ANALYST Telephone Encounter - Mark Roldan - 12/26/2016 4:46 PM CST Pt called she had her baby early and she will be discharging from the hospital tomorrow, pt requesting a bridge of Subutex and Welbutrin until her next appt on 01/23. Pt contact info: [phone] Mark Roldan Dimpling Machine Operator AL FUND ANALYST documented in this encounter Plan of Treatment Upcoming Encounters Date Type Specialty Care Team Description 11/29/2021 Office Visit Wound Care Luis Camara DPM [address] [place] [address] (Wo rk) 01/21/2022 Office Visit Gastroenterology Juanis Levi [address] [place] [address] Luis Feranndo Miles MD [address] [address] documented as of this encounter Visit Diagnoses Diagnosis Major depressive disorder, recurrent epi sode, moderate (H) Major depressive disorder, recurrent epi sode, moderate Uncomplicated opioid dependence (H) Opioid type dependence, unspecified documented in this encounter Care Teams Picking Table Worker Relationship Specialty Start Date End Date Luis Fernando Magana PCP - General Family Practice 12/07/16 01/19/18 [place] [address] documented as of this encounter
--- OUTSIDE RECORDS SUMMARY | 2021-11-28 13:48 | XMS_ITS | Encounter Summary ---
:1980 Author Organization [place] Address [address] [place] [address] Care Team Providers Name Role Phone Luis Fernando Magana Primary Care Provider Reason for Visit Auth/Cert Specialty Diagnoses / Procedures Referred By Contact Refer red To Contact document examiner Diagnoses Maternity*JEAN MARIE: 03/07/2017 Rupture premature rupture of membranes (PPROM) delivered, current hospitalization Ur 4[facility] [address] [place] [address] Phone: Referral ID Status Reason Start Date Expiration Date Visits Requ ested Visits Authorized [id number] 12/09/2016 12/09/2017 1 1 Encounter Details Date Type Department Care Team Description 12/12/2016 Hospital Encounter [facility] Nora [facility] [place] [address] [place] [address] Social History Tobacco Use Types Packs/Day Years Used Date Smoking Tobacco: Every Day Cigarettes 0.1 10 Smokeless Tobacco: Never Comments: 5 cigarettes a day Alcohol Use Standard Drinks/Week Comments Yes 0 (1 standard drink = 0.6 oz pure Stoppe d after found out alcohol) Sex Assigned at Date Recorded Female 01/14/2020 10:57 AM DIAMOND SIZER AND SORTER documented as of this encounter Medications at [...] Visit Wound Care Luis Camara DPM [address] [place], [place] [address] (Wo rk) 01/21/2022 Office Visit Gastroenterology Juanis Levi [address] [place] [address] Luis Fernando Miles MD [address] [address] documented as of this encounter Procedures Procedure Name Priority Date/Time Associated Diagnosis Comme [facility] OB LIMITED Routine 12/12/2016 8:36 AM Resu [...] STEPHANI REDDY Study Date: 7:48am Pat. NO: [id number] Referring ??: CHRIST LOZADA Site: [facility] Shock Absorber Installer: Jay Lu : 1980 Age: 36 INDICATION Premature Rupture of Membranes ( PPROM), Complete Previa. METHOD [facility] ANTEPARTUM inpatient exam, Transabd ominal and [...] The [facility] end of the [facility]. Please see [facility] for further documentation regarding plan of care. If you have questions regarding today's evaluation or if we can be of further service, please contact the M[facility] Center. anomalies may be present but not detected. Procedure Note CrossNora MD - 12/12/2016For matting of this note might be different from the original. Cx TV Pat. Name:Elizabeth REDDY Date:12/12 7:48am Pat. NO: [id number] MD:CHRIST BHAT ON [facility]Yesenia Sen RDMS :1980Age:36 INDICATION Premature Rupture of Membranes ( PPROM), Complete Previa. METHOD [facility] ANTEPARTUM inpatient exam, Transabd ominal and [...] the end of the ultrasound. Please see [facility] for further documentation regarding plan of care. [...] the placental-myometrial interface appears normal. Nora Mohamud [facility] US ORDERABLES documented in this encounter Visit Diagnoses Not on filedocumented in this encounter Care Teams Ship Harbor Pilot Relationship Specialty Start Date End Date Luis Fernando Magana PCP - General Family Practice 12/07/16 01/19/[address] [address] documented as of this encounter
--- OUTSIDE RECORDS SUMMARY | 2021-11-28 13:48 | XMS_ITS | Encounter Summary ---
:1980 Author Organization [place] Address [address] [facility] [place] [address] Care Team Providers Name Role Phone ChinoLuis Fernando morataya Primary Care Provider Encounter Details Date Type Department Care Team Description 12/20/[address] [facility] Tarsha Torres Placenta a ccreta, [facility] MD Ann Marie antepartum ( Primary [place] Dx) [address] [employer] [facility] [address] [place] [address] Social History Tobacco Use Types Packs/Day Years Used Date Smoking Tobacco: Every Day Cigarettes 0.1 10 Smokeless Tobacco: Never Comments: 5 cigarettes a day Alcohol Use Standard Drinks/Week Comments Yes 0 (1 standard drink = 0.6 oz pure Stoppe d after found out alcohol) Sex Assigned at Date Recorded Female 01/14/2020 10:57 AM FARMER CASH GRAIN documented as of this encounter Plan of Treatment Upcoming Encounters Date Type Specialty Care Team Description 11/29/2021 Office Visit Wound Care Luis Camara DPM [address] [place] [address] (Wo rk) 01/21/2022 Office Visit Gastroenterology Juanis Levi [address] [place] [address] Luis Fernando Miles MD 157 [facility] [address] [place] [address] Scheduled Orders Name Type Priority Associated Diagnoses Order S chedule Teresa-Operative Procedures Routine Placenta accreta, Ordered: 12/20/2016 Worksheet ( antepartum Section, Immediate Hysterectomy) documented as of this encounter Visit Diagnoses Diagnosis Placenta accreta, antepartum - Primary documented in this encounter Care Teams Renovator Machine Operator Relationship Specialty Start Date End Date Luis Fernando Magana PCP - General Family Practice 12/07/16 01/19/[address] [address] documented as of this encounter
--- OUTSIDE RECORDS SUMMARY | 2021-11-28 13:48 | XMS_ITS | Encounter Summary ---
:1980 Author Organization [place] Address [address] [place] [address]. [place] [address] Care Team Providers Name Role Phone Luis Fernando Magana Primary Care Provider Encounter Details Date Type Department Care Team Description 12/18/2016 Anesthesia Event [facility] Christina Linda MD [address] [facility] [address] [place] [address] Birthplace Delio Valentin MD [address] [place] [address] [place] [address] Anesthesia Record Procedure Summary Procedure Name [...] at Date Recorded Female 01/14/2020 10:57 AM WAITER/WAITRESS CABIN CLASS documented as of this encounter OR Notes [...] ASA Classification: 3 Case is suitable for: [facility] [place] Anesthetic techniques and relevant risks discussed: Regional and GA Invasive monitoring and risk discussed: Yes Types: Possibility and Risk of blood transfusion discussed: Yes NPO instructions given: Other (comment) Additional anesthetic preparation and risks discussed: Invasive monitoring Needs early admission to pre-op area: Yes Other: PAC Resident/ROLLER MILL TENDER Anesthesia Assessment: Mid-Level Provider/Resident: Date: Time: Attending [...] Visit Wound Care Luis Camara DPM [address] [place] [address] (Wo rk) 01/21/2022 Office Visit Gastroenterology Juanis Levi [address] [place] [address] Luis Fernando Miles MD [address] [address] documented as of this encounter Visit Diagnoses Not on filedocumented in this encounter Care Teams Raschel Knitting Machine Operator Relationship Specialty Start Date End Date Luis Fernando Magana PCP - General Family Practice 12/07/16 01/19/[address] [address] documented as of this encounter
--- OUTSIDE RECORDS SUMMARY | 2021-11-28 13:48 | XMS_ITS | Encounter Summary ---
:1980 Author Organization [place] Address [facility] [place] [address] Care Team Providers Name Role Phone ChinoLuis Fernando Primary Care Provider Encounter Details Date Type Department Care Team Description 12/20/2016 Orders Only [facility] Tarsha Torres Plac enta accreta in Birthplace MD Ann Marie third trimester [address] [facility] (Primary Dx) [place] [address] Social History Tobacco Use Types Packs/Day Years Used Date Smoking Tobacco: Every Day Cigarettes 0.1 10 Smokeless Tobacco: Never Comments: 5 cigarettes a day Alcohol Use Standard Drinks/Week Comments Yes 0 (1 standard drink = 0.6 oz pure Stoppe d after found out alcohol) Sex Assigned at Date Recorded Female 01/14/2020 10:57 AM PICK UP documented as of this encounter Plan of Treatment Upcoming Encounters Date Type Specialty Care Team Description 11/29/2021 Office Visit Wound Care Luis Camara DPM [address] [place] [address] (Wo rk) 01/21/2022 Office Visit Gastroenterology Juanis Levi [address] [place] [address] Luis Fernando Miles MD [address] [facility] [address] [place] [address] documented as of this encounter Visit Diagnoses Diagnosis Placenta accreta in third trimester - Pr imary Retained placenta without hemorrhage, un specified as to episode of care documented in this encounter Care Teams Contract Associate Relationship Specialty Start Date End Date Luis Fernando Magana PCP - General Family Practice 12/07/16 01/19/[address] [address] documented as of this encounter
--- OUTSIDE RECORDS SUMMARY | 2021-11-28 13:48 | XMS_ITS | Encounter Summary ---
:1980 Author Organization [place] Address [address] [facility] [place] [address] Care Team Providers Name Role Phone Luis Fernando Magana Primary Care Provider Encounter Details Date Type Department Care Team Description 12/23/2016 Documentation Only [facility] Edgar Alfredo, [facility] [address] [place] [address] [place] [address] (Wo rk) Social History Tobacco Use Types Packs/Day Years Used Date Smoking Tobacco: Every Day Cigarettes 0.1 10 Smokeless Tobacco: Never Comments: 5 cigarettes a day Alcohol Use Standard Drinks/Week Comments Yes 0 (1 standard drink = 0.6 oz pure Stoppe d after found out alcohol) Sex Assigned at Date Recorded Female 01/14/2020 10:57 AM CORPORATE BUYER documented as of this encounter Progress Notes [...] change now Will follow Edgar Alfredo M.D. [phone] ORATE BUYER documented in this encounter Plan of Treatment Upcoming Encounters Date Type Specialty Care Team Description 11/29/2021 Office Visit Wound Care Luis Camara, [place] [address] [place], [place] [address] (Wo rk) 01/21/2022 Office Visit Gastroenterology Juanis Levi [address] [place] [address] Luis Fernando Miles MD 516 [facility] [address] [place], [place] [address] documented as of this encounter Visit Diagnoses Not on filedocumented in this encounter Care Teams Make Up Artist Relationship Specialty Start Date End Date Luis Fernando Magana PCP - General Family Practice 12/07/16 01/19/[address] [address] documented as of this encounter
--- OUTSIDE RECORDS SUMMARY | 2021-11-28 13:48 | XMS_ITS | Encounter Summary ---
:1980 Author Organization [place] Address [address] [facility] [place] [address] Care Team Providers Name Role Phone Luis Fernando Magana Primary Care Provider Reason for Visit Reason Onset Date Comments No Show No Show 12/23/2016 Erroneous encounter-disregard 12/23/2016 Encounter Details Date Type Department Care Team Description 12/23/[address] [facility] Edgar Workman NO SHOW ( Primary Dx); Clinic Ashly Gauthier MD ERRONEOUS ENCOUNTER--DISREGARD [address] [place] [address] [place] [address] Social History Tobacco Use Types Packs/Day Years Used Date Smoking Tobacco: Every Day Cigarettes 0.1 10 Smokeless Tobacco: Never Comments: 5 cigarettes a day Alcohol Use Standard Drinks/Week Comments Yes 0 (1 standard drink = 0.6 oz pure Stoppe d after found out alcohol) Sex Assigned at Date Recorded Female 01/14/2020 10:57 AM GENERAL SALES MANAGER documented as of this encounter Progress Notes Edgar Workman MD - 12/23/2016 12:47 PM CST This encounter was opened in error. Please disregard. RAL SALES MANAGER Sabina Mckay CMA - 12/23/2016 10:42 AM CST This patient was a no show for this scheduled appointment. RAL SALES MANAGER documented in this encounter Miscellaneous Notes Addendum Note - Edgar Workman MD - 12/23/2016 12:47 PM GENERAL SALES MANAGER Addended by: EDGAR WORKMAN on: 12/23/2016 12:47 PM Modules accepted: SmartSet RAL SALES MANAGER documented in this encounter Plan of Treatment Upcoming Encounters Date Type Specialty Care Team Description 11/29/2021 Office Visit Wound Care Luis Camara DPM [address] [place] [address] (Wo rk) 01/21/2022 Office Visit Gastroenterology Juanis Levi [address] [place] [address] Luis Fernando Miles MD 516 [facility] [address] [place] [address] documented as of this encounter Visit Diagnoses Diagnosis NO SHOW - Primary ERRONEOUS ENCOUNTER--DISREGARD documented in this encounter Care Teams Trial Court Justice Relationship Specialty Start Date End Date Luis Fernando Magana PCP - General Family Practice 12/07/16 01/19/[address] [address] documented as of this encounter
--- OUTSIDE RECORDS SUMMARY | 2021-11-28 13:48 | XMS_ITS | Encounter Summary ---
:1980 Author Organization [place] Address [address] [facility] [place] [address] Care Team Providers Name Role Phone Luis Fernando Magana Primary Care Provider Reason for Visit Auth/Cert Specialty Diagnoses / Procedures Referred By Contact Refer red To Contact aircraft landing gear inspector Diagnoses Maternity*JEAN MARIE: 03/07/2017 Rupture premature rupture of membranes (PPROM) delivered, current hospitalization Ur 4bob [address] [place] [address] Phone: Referral ID Status Reason Start Date Expiration Date Visits Requ ested Visits Authorized [id number] 12/09/2016 12/09/2017 1 1 Encounter Details Date Type Department Care Team Description 12/23/2016 Hospital Encounter [facility] Lashawn Patel, Maternal Medicine [facility] [address] [facility] [address] [place] [address] [phone] Social History Tobacco Use Types Packs/Day Years Used Date Smoking Tobacco: Every Day Cigarettes 0.1 10 Smokeless Tobacco: Never Comments: 5 cigarettes a day Alcohol Use Standard Drinks/Week Comments Yes 0 (1 standard drink = 0.6 oz pure Stoppe d after found out alcohol) Sex Assigned at Date Recorded Female 01/14/2020 10:57 AM DINKEY ENGINE FIRER/FIREMAN documented as of this encounter Medications at [...] Visit Wound Care Luis Camara DPM [address] [place] [address] (Wo rk) 01/21/2022 Office Visit Gastroenterology Juanis Levi [address] [place] [address] Luis Fernando Miles MD [address] [address] documented as of this encounter Procedures Procedure Name Priority Date/Time Associated Diagnosis Comme nts MFM BPP SINGLE Routine 12/23/2016 8:37 AM Results for this DINKEY ENGINE FIRER/FIREMAN procedure are i n the results section . documented in this encounter Results Maternal BPP Single (12/23/2016 8:37 AM DINKEY ENGINE FIRER/FIREMAN) Anatomical Region Laterality Modality Ultrasound Specimen (Source) Anatomical Collection Method Collection Time Re ceived Time Location / / Volume Laterality 12/23/2016 8:05 AM DINKEY ENGINE FIRER/FIREMAN Impressions 12/23/2016 11:10 AM DINKEY ENGINE FIRER/FIREMAN IMPRESSION 1) Intrauterine at 29 3/7 week s gestational age. 2) The BPP is reassuring. 3) The amniotic fluid volume low consist ent with known PPROM. 4) There is a complete posterior/lateral placenta previa. Narrative 12/23/2016 11:10 AM DINKEY ENGINE FIRER/FIREMAN BPP Pat. Name: REDDY STEPHANI Study Date: 8:05am Pat. NO: [id number] Referring ??: CHRIST LOZADA Site: [facility] President: Jay Lu : 1980 Age: 36 INDICATION Premature Rupture of Membranes ( PPROM) Complete previa. METHOD [facility] ANTEPARTUM inpatient exam, Transabd ominal [...] Petrona Barone, - 12/23/2016 BPP Pat. Name:Elizabeth REDDY Date:12/23 8:05am Pat. NO: [id number] MD:CHRIST BHAT ON [facility]:Yesenia Sen RDMS :1980Age:36 INDICATION Premature Rupture of Membranes ( PPROM) Complete previa. METHOD [facility] ANTEPARTUM inpatient exam, Transabd ominal [...] complete posterior/lateral placenta previa. Lashawn Patel MD [facility] US ORDERABLES documented in this encounter Visit Diagnoses Not on filedocumented in this encounter Care Teams Straight Line Press Setter Relationship Specialty Start Date End Date Luis Fernando Magana PCP - General Family Practice 12/07/16 01/19/[address] [address] documented as of this encounter
--- OUTSIDE RECORDS SUMMARY | 2021-11-28 13:48 | XMS_ITS | Encounter Summary ---
:1980 Author Organization [place] Address [address] [facility] [place] [address] Care Team Providers Name Role Phone Luis Fernando Magana Primary Care Provider Reason for Visit Auth/Cert Specialty Diagnoses / Procedures Referred By Contact Refer red To Contact pastry sous chef Diagnoses Maternity*JEAN MARIE: 03/07/2017 Rupture premature rupture of membranes (PPROM) delivered, current hospitalization Ur 4bob [address] [place] [address] Phone: Referral ID Status Reason Start Date Expiration Date Visits Requ ested Visits Authorized [id number] 12/09/2016 12/09/2017 1 1 Encounter Details Date Type Department Care Team Description 12/16/2016 Hospital Encounter [facility] Asaf Manzanares Maternal MD iTgist [facility] DIRECTOR [facility] [address] [place] [address] [place] [address] [phone] (Wo rk) Social History Tobacco Use Types Packs/Day Years Used Date Smoking Tobacco: Every Day Cigarettes 0.1 10 Smokeless Tobacco: Never Comments: 5 cigarettes a day Alcohol Use Standard Drinks/Week Comments Yes 0 (1 standard drink = 0.6 oz pure Stoppe d after found out alcohol) Sex Assigned at Date Recorded Female 01/14/2020 10:57 AM LOGGING ASSISTANT documented as of this encounter Medications at [...] Visit Wound Care Luis Camara DPM [address] [place] [address] (Wo rk) 01/21/2022 Office Visit Gastroenterology Juanis Levi [address] [place] [address] Luis Fernando Miles MD [address] [address] documented as of this encounter Procedures Procedure Name Priority Date/Time Associated Diagnosis Comme nts MFM US OB LIMITED Routine 12/16/2016 9:24 AM Resu lts for this SINGLE/MULTIPLE CDT procedure krista dobson in the results section. documented in this [...] STEPHANI REDDY Study Date: 8:43am Pat. NO: [id number] Referring ??: CHRIST LOZADA Site: [facility] Condemnation Engineer: Jay Lu : 1980 Age: 36 INDICATION Premature Rupture of Membranes ( PPROM) Complete previa. METHOD [facility] ANTEPARTUM inpatient exam, Transabd ominal ultrasound examination. Nciole . Number of fetuses: 1. DATING ? [...] be different from the original. Limited Pat. Name:Clovis REDDYvioletscarlet Date:12/16 8:43am Pat. NO: [id number] MD:CHRIST BHAT ON [facility]Yesenia Sen RDMS :1980Age:36 INDICATION Premature Rupture of Membranes ( PPROM) Complete previa. METHOD [facility] ANTEPARTUM inpatient exam, Transabd ominal ultrasound examination. [...] delivery. Thank-you for the opportunity to partici hall [...] stent with known PPROM. Erum Manzanares MD [facility] US ORDERABLES documented in this encounter Visit Diagnoses Not on filedocumented in this encounter Care Teams Pressure Dispatcher Relationship Specialty Start Date End Date Luis Fernando Magana PCP - General Family Practice 12/07/16 01/19/18 [place] [address] documented as of this encounter
--- OUTSIDE RECORDS SUMMARY | 2021-11-28 13:48 | XMS_ITS | Encounter Summary ---
:1980 Author Organization [place] Address [address] [place] [address] Care Team Providers Name Role Phone Luis Fernando Magana Primary Care Provider Reason for Visit Auth/Cert Specialty Diagnoses / Procedures Referred By Contact Refer red To Contact director distribution Diagnoses Maternity*JEAN MARIE: 03/07/2017 Rupture premature rupture of membranes (PPROM) delivered, current hospitalization Ur 4bob [address] [place] [address] Phone: Referral ID Status Reason Start Date Expiration Date Visits Requ ested Visits Authorized [id number] 12/09/2016 12/09/2017 1 1 Encounter Details Date Type Department Care Team Description 12/08/2016 Hospital Encounter [facility] Maternal Medicine Center Riccardo eddy [address] [place], [place] [address] Social History Tobacco Use Types Packs/Day Years Used Date Smoking Tobacco: Every Day Cigarettes 0.1 10 Smokeless Tobacco: Never Comments: 5 cigarettes a day Alcohol Use Standard Drinks/Week Comments Yes 0 (1 standard drink = 0.6 oz pure Stoppe d after found out alcohol) Sex Assigned at Date Recorded Female 01/14/2020 10:57 AM 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 NO: [id number] Referring ??: CHRIST LOZADA Site: [facility] Bpo Specialist: Jay Lu : 1980 Age: 36 INDICATION Premature Rupture of Membranes ( PPROM) Complete previa. METHOD Transabdominal ultrasound examination, [facility] ANTEPARTUM inpatient exam. View: Suboptimal [...] 2 lb 1 ?oz Calculated by ?Hadlock ([id number]) Head / Face / Neck Biometry: Put In Beat Adjuster ?3.9 ?mm ? Amniotic Fluid / FHR: [...] Pat. Name:Elizabeth REDDY Date:12/08 9:10am Pat. NO: [id number] MD:CHRIST BHAT ON [facility]Yesenia Sen RDMS :1980Age:36 INDICATION Premature Rupture of Membranes ( PPROM) Complete previa. METHOD Transabdominal ultrasound examination, [facility] ANTEPARTUM inpatient exam. View: Suboptimal [...] 2 lb 1 oz Calculated by Flora ([id number]) Head / Face / Neck Biometry: Put In Beat Adjuster 3.9 mm Amniotic Fluid / FHR: AF [...] on today's cristian noriega with the patient. surveillance with twice-weekly BPPs [...] consistent with PPROM. Rossana Barker MD [facility] US ORDERABLES documented in this encounter Visit Diagnoses Not on filedocumented in this encounter Care Teams Apparel Fashion Designer Relationship Specialty Start Date End Date Luis Fernando Magana PCP - General Family Practice 12/07/16 01/19/18 [place] [id number] documented as of this encounter
--- OUTSIDE RECORDS SUMMARY | 2021-11-28 13:48 | XMS_ITS | Encounter Summary ---
:1980 Author Organization [place] Address [address] [facility] [place] [address] Care Team Providers Name Role Phone Luis Fernando Magana Primary Care Provider Reason for Visit Auth/Cert Specialty Diagnoses / Procedures Referred By Contact Refer red To Contact surveyor's assistant Diagnoses Maternity*JEAN MARIE: 03/07/2017 Rupture premature rupture of membranes (PPROM) delivered, current hospitalization [facility] [address] [place] [address] Phone: Referral ID Status Reason Start Date Expiration Date Visits Requ ested Visits Authorized [id number] 12/09/2016 12/09/2017 1 1 Encounter Details Date Type Department Care Team Description 12/19/2016 Hospital Encounter [facility] Asaf Manzanares Maternal MD [facility] [employer] OFFIC[employer] [facility] [address] [place], [place] [id number] [place] [address] [phone] (Wo rk) Social History Tobacco Use Types Packs/Day Years Used Date Smoking Tobacco: Every Day Cigarettes 0.1 10 Smokeless Tobacco: Never Comments: 5 cigarettes a day Alcohol Use Standard Drinks/Week Comments Yes 0 (1 standard drink = 0.6 oz pure Stoppe d after found out alcohol) Sex Assigned at Date Recorded Female 01/14/2020 10:57 AM FACILITATOR documented as of this encounter Medications at [...] Visit Wound Care Luis Camara DPM [address] [place] [address] (Wo rk) 01/21/2022 Office Visit Gastroenterology Juanis Levi [address] [place] [address] Luis Fernando Miles MD [address] [address] documented as of this encounter Procedures Procedure Name Priority Date/Time Associated Diagnosis Comme winnie MFM BPP SINGLE Routine 12/19/2016 8:46 AM Results for this CDT procedure are i n the results section . documented in this encounter Results Maternal BPP Single (12/19/2016 8:46 AM CDT) Anatomical Region Laterality Modality Ultrasound Specimen (Source) Anatomical Collection Method Collection Time Re ceived Time Location / / Volume Laterality 12/19/2016 8:16 AM CDT Impressions 12/25/2016 9:13 AM FACILITATOR IMPRESSION 1) Intrauterine at 28 6/7 week s gestational age. 2) The BPP is reassuring. 3) Oligohydramnios is seen consistent wi th know PPROM. 4) A complete posterior placenta previa is again seen. Narrative 12/25/2016 9:13 AM FACILITATOR BPP Pat. Name: STEPHANI REDDY Study Date: 8:16am Pat. NO: [id number] Referring ??: CHRIST LOZADA Site: [facility] Administrative Office Specialist: Jay Lu : 1980 Age: 36 INDICATION Premature Rupture of Membranes ( PPROM) Complete previa. METHOD [facility] ANTEPARTUM inpatient exam, Transabd ominal ultrasound examination. [...] different from the original. BPP Pat. Name:Elizabeth REDDY Date:12/19 8:16am Pat. NO: [id number] MD:CHRIST BHAT ON [facility]Yesenia Sen RDMS :1980Age:36 INDICATION Premature Rupture of Membranes ( PPROM) Complete previa. METHOD [facility] ANTEPARTUM inpatient exam, Transabd ominal ultrasound examination. [...] rasound with the patient. Continue surveillance with [facility] BPP. Continue inpatient management of [...] previa is again seen. Erum Manzanares MD [facility] documented in this encounter Visit Diagnoses Not on filedocumented in this encounter Care Teams Food And Beverage Coordinator Relationship Specialty Start Date End Date Luis Fernando Magana PCP - General Family Practice 12/07/16 01/19/[address] [address] documented as of this encounter
--- OUTSIDE RECORDS SUMMARY | 2021-11-28 13:48 | XMS_ITS | Encounter Summary ---
:1980 Author Organization [place] Address [address] [facility] [place] [address] Care Team Providers Name Role Phone Luis Fernando Magana Primary Care Provider Reason for Referral - Closed Specialty Diagnoses / Procedures Referred By Contact Refer red To Contact Diagnoses Hepatitis C virus infection, unspecified chronicity Erum Manzanares MD [employer] [facility] [address] [place] [id number] Referral ID Status Reason Start Date Expiration Date Visits Requ ested Visits Authorized [id number] Closed 12/13/2016 12/13/2017 1 1 Encounter Details Date Type Department Care Team Description 12/13/2016 Orders Only [facility] Erum Manzanares patitis C virus [facility] Birthplace MD [facility] infection, [address] [facility] YIELD CLERK AND unspecified [place] [address] INFERTILITY chronicity (Primary [phone] Dx) [place] [address] [place] [id number] (Wo rk) Social History Tobacco Use Types Packs/Day Years Used Date Smoking Tobacco: Every Day Cigarettes 0.1 10 Smokeless Tobacco: Never Comments: 5 cigarettes a day Alcohol Use Standard Drinks/Week Comments Yes 0 (1 standard drink = 0.6 oz pure Stoppe d after found out alcohol) Sex Assigned at Date Recorded Female 01/14/2020 10:57 AM PRACTICE BUSINESS ASST documented as of this encounter Plan of Treatment Upcoming Encounters Date Type Specialty Care Team Description 11/29/2021 Office Visit Wound Care Luis Camara, [place] [address] [place], [place] [id number] (Wo rk) 01/21/2022 Office Visit Gastroenterology Juanis Levi [address] [place] [address] Luis Fernando Miles MD [address] [facility] [address] [place], [place] [id number] Scheduled Referrals Name Type Priority Associated Diagnoses [facility] Referral Routine Hepatitis C vi brittny Ordered: CONSULT ONLY infection, unspecified 12/13 chronicity documented as of this encounter Visit Diagnoses Diagnosis Hepatitis C virus infection, unspecified chronicity - Primary documented in this encounter Care Teams Siding Applicator Relationship Specialty Start Date End Date Luis Fernando Magana PCP - General Family Practice 12/07/16 01/19/18 [place] [address] [place] [address] documented as of this encounter
--- OUTSIDE RECORDS SUMMARY | 2021-11-28 13:48 | XMS_ITS | Encounter Summary ---
:1980 Author Organization [facility] Address [address] 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 Diagnoses Maternity*JEAN MARIE: 03/07/2017 Rupture premature rupture of membranes (PPROM) delivered, current hospitalization [facility] [address] [place] [address] Phone: Referral ID Status Reason Start Date Expiration Date Visits Requ ested Visits Authorized [id number] 12/09/2016 12/09/2017 1 1 Encounter Details Date Type Department Care Team Description 12/24/2016 Surgery Formerly [facility] CatieSo dubois Moraima, Section Immediate PeriOp Services Hysterectomy, Bilateral [address] [place] [address] [address] Cystoscopy. Baby Boy born [phone] [place], [place] at 20:05 [id number] Surgery Details Date/Time [...] at Date Recorded Female 01/14/2020 10:57 AM SUBSTANCE ADDICTION COORDINATOR documented as of this encounter Last Filed Vital Signs Vital Sign Reading Time Taken Comments Blood Pressure 112/68 12/24/2016 4:00 PM SUBSTANCE ADDICTION COORDINATOR Pulse 101 12/19/2016 12:39 PM CDT Temperature 36.7 ??C (98 ??F) 12/24/2016 4:00 PM SUBSTANCE ADDICTION COORDINATOR Respiratory Rate 18 12/24/2016 4:00 PM SUBSTANCE ADDICTION COORDINATOR Oxygen Saturation - - Inhaled Oxygen Concentration - - Weight 83.9 kg (185 lb) 12/24/2016 6:25 AM SUBSTANCE ADDICTION COORDINATOR Height 167.6 cm (5' 6) 12/07/2016 2:19 PM CDT Body Mass Index 29.68 12/07/2016 2:19 PM CDT documented in this encounter Discharge Summaries Petrona Barone DO - 12/27/2016 8:18 AM CST [facility] Discharge Summary Deann King Age: [...] uncomplicated. She was initially given a dilaudid MOISTURE CONDITIONER OPERATOR, but was transitioned to PO medications [...] Discharge Medications: Deann King Home Medication Instructions MAILE:[id number] Printed on:12/28/16 4581 Medication Information acetaminophen (TYLENOL) 325 MG tablet [...] machinery while on narcotics. Marleny Kang MD CHIEF SECURITY AND SAFETY OFFICER PGY-3 I agree with above discharge summary Petrona Barone DO FACOG Maternal Medicine Specialist Pager: [phone] TANCE ADDICTION COORDINATOR documented in this encounter Discharge Instructions Discharge InstructionsErika Villalpando RN - 12/27/2016 7:51 AM SUBSTANCE ADDICTION COORDINATOR Postop Instructions Activity ?? Do not lift [...] questions or concerns after you return home. TANCE ADDICTION COORDINATOR documented in this encounter Medications at Time of Discharge Medication Sig Dispensed Refills Start Date End Date acetaminophen (TYLENOL) Take 2 tablets (650 60 tablet 0 11/201601/31/2018 325 MG mg) by mouth every 4 tabletIndications: S/P hours as needed for emergency mild pain hysterectomy ACETAMINOPHEN PO 0 05/18/20 19 buprenorphine (SUBUTEX) Place 1 tablet (2 [...] Deann and John are on [facility]. John will be on WIC. At this time Deann has a car seat without a base for the baby. Deann mentioned she has a social science research assistant Francisco who helps them with the children. SW spoke with [facility] and they report that the family has been assigned to Francisco Silverman [phone] who is case planner with CPS ongoing. (Francisco is out of office until 01/27/17, this machine sign writer left ). Deann has history of substance use disorder and has been sober for 8 years. She is followed closely by Dr. Alfredo and is on Subutex. Deann also struggles with anxiety and depression, at this time she reports she is doing well. I)SW confirmed with pt's [facility] [phone] that Deann is able to schedule one [...] exception (for her 4 yr old) on the season rule of ages 5 and up to visit. SW spoke with NICU occupational therapy manager and SW informed Deann that an exception would not be made. SW left GIOVANNA at bedside for Deann to sign so that this machine sign writer can coordinate care with [facility] social science research assistant Francisco. A)JACKIE spoke with MOB Deann via [...] note was copied and pasted from NICU infant John's 12/24/16 chart on 01/23/17 Petrona Tinoco DO - 12/27/2016 5:20 AM CST [facility] Post- Note Name: Deann King [...] Routine management: Pain: S/p TAP blocks and MOISTURE CONDITIONER OPERATOR. Scheduled ibuprofen and tylenol. PO oxycodone [...] plan regarding pain management Marleny Kang MD Community Resource Consultant, PGY-3 Physician Attestation I, Petrona Fariae Barone, DO, saw and evaluated Deann King [...] patient): 12/27/16 Time Spent on this Encounter IPetrona DO, spent a total of 15 minutes face to face or coordinating care of Reji King. Over 50% of my time on the unit was spent counseling the patient and/or coordinating care regarding post c/hyst, opioid dependence, discharge instructions. TANCE ADDICTION COORDINATOR Petrona Barone DO - 12/26/2016 6:42 AM CST [facility] Note Name: Deann King S: [...] Routine management: Pain: S/p TAP blocks and MOISTURE CONDITIONER OPERATOR. Scheduled toradol, tylenol. PRN IV dilaudid [...] and meeting postoperative goals Marleny Kang MD Community Resource Consultant, PGY-3 Physician Attestation IPetrona DO, saw and [...] patient): 12/26/16 Time Spent on this Encounter Petrona Powers DO, spent a total of 15 minutes face to face or coordinating care of Reji King. Over 50% of my time on the unit was spent counseling the patient and/or coordinating care regarding postop care from claire/hyst. TANCE ADDICTION COORDINATOR Marleny Kang MD - 12/25/2016 9:54 PM [...] oximetry, discussed with RN. Marleny Kang MD CHIEF SECURITY AND SAFETY OFFICER PGY-3 Marilu Munguia MD - 12/25/2016 9:38 PM CST I have seen and examined this patient this AM (note delayed). She is HD stable and tolerating her recovery to date. WE have discussed the implication of her surgery and she is aware that she will not be able to have additional children, but is grateful to be feeling well. Marilu Lam TANCE ADDICTION COORDINATOR Barone, Petrona Escoto, DO - 12/25/2016 5:44 AM CST [facility] Note Name: Deann King S: [...] b/l I/O last 3 completed shifts: In: 84442 [I.V.:4800] Out: 5900 [Urine:900; Blood:5000] Hgb: Hemoglobin [...] 2. cares: Pain: S/p TAP blocks. Dilaudid MOISTURE CONDITIONER OPERATOR with scheduled tylenol. Holding NSAIDs until [...] Hypothyroidism: - Continue synthroid. Marleny Kang MD Community Resource Consultant, PGY-3 Physician Attestation Petrona Powers DO, saw and evaluated Deann Severino Fernando with the resident. I personally reviewed the [...] tolerance. Labs stable. Toradol given now. Increase MOISTURE CONDITIONER OPERATOR to 0.3mg continuous with 0.3-0.5mg bumps. [...] patient): 12/25/16 Time Spent on this Encounter Petrona Powers DO, spent a total of 15 minutes face to face or coordinating care of Reji iKng. Over 50% of my time on the unit was spent counseling the patient and/or coordinating care regarding post op pain, recovery plan, etc. TANCE ADDICTION COORDINATOR Marleny Kang MD - 12/25/2016 2:56 AM CST [facility] Note Name: Deann King S: [...] b/l I/O last 3 completed shifts: In: 29516 [I.V.:4800] Out: 5900 [Urine:900; Blood:5000] Hgb: Hemoglobin [...] 2. cares: Pain: S/p TAP blocks. Dilaudid MOISTURE CONDITIONER OPERATOR with scheduled tylenol, will increase demand dose. Holding NSAIDsuntil Hgb stabilizes. Continue home subutex for history of substance abuse. Supportive measures including warm packs, abdominal binder. GI: CLD, advance as tolerated. Scheduled bowel regimen ordered. : Duarte in place, strict Is/Os. Daily weights. Rh: Positive. Rubella: Non-immune, MMR ordered. Mood: Continue home effexor, wellbutrin. SW is following patient. Marleny Kang MD Community Resource Consultant, PGY-3 12/25/2016, 2:28 AM TANCE ADDICTION COORDINATOR Yareli Greenwood RN - 12/24/2016 8:35 PM [...] and fundal checks if uterus not removed. TANCE ADDICTION COORDINATOR Petrona Barone DO - 12/24/2016 7:07 PM CST OB [...] Dr. Barone M staff and Dr. Nunez CHIEF SECURITY AND SAFETY OFFICER staff were notified. Delivery plan was confirmed [...] OR notified, proceed urgently. Marleny Kang MD CHIEF SECURITY AND SAFETY OFFICER PGY-3 MFM staff note: Called regarding change in clinical status for patient. Delivery indicated in the setting of pretermcervical dilation, hemorrhage with known posterior placenta previa/possible accreta and prolonged ROM. S/p BMZ nearly 2 weeks ago. Magnesium sulfate for CREDIT REVIEW ANALYST recommended. Type and cross with blood in OR. Petrona Barone DO FACOG Maternal Medicine Specialist Pager: [phone] TANCE ADDICTION COORDINATOR Petrona Barone DO - 12/24/2016 10:18 AM [...] 140s, moderate variability, present accels, absent decels Wiley Ford: no contractions or irritability noted Imaging: See under Imaging tab Placenta posterior, complete previa BPP 09/24 Assessment/Plan: Deann King is a 36 year old at 29w4d by LMP c/w 6w2d US admitted for PPROM at 27w1d with otherwise complicated by complete placenta previa concerning for accreta. Care conferencere: delivery plan scheduled for this Wed at 1:00pm. ? 1) PPROM: - S/p [...] bleeding. Plan c-hyst unless previa resolves with [facility] double staff. - Care conference scheduled for [...] million. Needs follow up with GI or [facility] [employer] for treatment options . - Notify NICU [...] 4 weeks from dose increase, end of Nov. 8) Minor tongue ulcer: likely due to [...] with Dr. Barone. Tatyana Walsh MD MPH CHIEF SECURITY AND SAFETY OFFICER, PGY3 Pager: [phone] 12/23/2016 10:04 AM Physician Attestation Petrona Powers [...] and/or coordinating care regarding PPROM, complete previa. TANCE ADDICTION COORDINATOR Marleny Kang MD - 12/23/2016 11:56 PM [...] team of new symptoms. Marleny Kang MD CHIEF SECURITY AND SAFETY OFFICER PGY-3 TANCE ADDICTION COORDINATOR Petrona Barone DO - 12/23/2016 10:04 AM CST MFM [...] 130s, moderate variability, present accels, absent decels Wiley Ford: quiet, no contractions Assessment/Plan: Deann King is [...] - Needs follow up with GI or [facility] [employer] for treatment options . ? 5) History [...] with Dr. Barone. Tatyana Walsh MD MPH CHIEF SECURITY AND SAFETY OFFICER, PGY3 Pager: [phone] 12/23/2016 10:04 AM Physician Attestation I, Petrona Barone DO, saw and evaluated Deann Severino Fernando with the resident. I personally reviewed the [...] coordinating care regarding placenta previa/PPROM, possible accreta. Nora Ford MD - 12/22/2016 10:45 AM CST Images [...] 6. Hepatitis C - s/p GI at [facility] in 2013, genotype 1a - normal [...] patient): December 22, 2016 Nora Mohamud MD Arnp, CHIEF SECURITY AND SAFETY OFFICER Maternal- Medicine [email or web address] [phone] (Academic office) [phone] (Pager) TANCE ADDICTION COORDINATOR Nora Mohamud MD - 12/21/2016 11:52 AM [...] 6. Hepatitis C - s/p GI at [facility] in 2013, genotype 1a, inpatient GI [...] patient): December 21, 2016 Nora Mohamud MD Arnp, CHIEF SECURITY AND SAFETY OFFICER Maternal- Medicine [email or web address] [phone] (Academic office) [phone] (Pager) Apple Sen RD - 12/20/2016 11:41 [...] protocol. Apple Sen RD, LD Unit Pager: [phone] Lashawn Patel MD - 12/20/2016 8:59 AM CDT M Antepartum Progress Note Subjective: Deann is doing [...] moderate variability, + accels, rare variable decels Wiley Ford: quiet, 0 ctx in 10 minutes Assessment/Plan: [...] - Twice weekly BPPs, presentation. Next scheduled 12/19??(M/). - Q3 week growth US (next 12/29/16). [...] bleeding. Plan c-hyst unless previa resolves with [facility] double staff. ? 3. FWB: - Category [...] - Needs follow up with GI or [facility] [employer] [facility] [employer] for treatment options . ? 5. History [...] the inpatient unit today managing thecare of Daenn King. Over 50% of my time on the unit was spent counseling the patient and /or coordinating care regarding complicated by placenta previa and PPROM. See note for details. Lashawn Patel Tatyana Walsh MD - 12/19/2016 11:56 PM CDT Strip Review FHT: Baseline 140s bpm, moderate variability, present accels, absent decels - appropriate for GA. Wiley Ford: no contractions No intervention needed at this time. Tatyana Walsh MD MPH CHIEF SECURITY AND SAFETY OFFICER, PGY3 Pager: [phone] 12/19/2016 11:56 PM Lashawn Patel MD - [...] 130s, moderate variability, + accels, no decels Wiley Ford: quiet, 0 ctx in 10 minutes Assessment/Plan: [...] - Needs follow up with GI or [facility] [employer] [facility] [employer] for treatment options . ? 5. History [...] accels, absent decels - appropriate for GA. Wiley Ford: no contractions No intervention needed at this time. Tatyana Walsh MD MPH CHIEF SECURITY AND SAFETY OFFICER, PGY3 Pager: [phone] 12/19/2016 3:13 AM Lashawn Patel MD - [...] 130s, moderate variability, + accels, no decels Wiley Ford: quiet, 0 ctx in 10 minutes Assessment/Plan: [...] - Needs follow up with GI or [facility] [employer] [facility] [employer] for treatment options . ? 5. History [...] weeks from dose increase. Marleny Kang MD CHIEF SECURITY AND SAFETY OFFICER PGY-3 Physician Attestation ILashawn, saw this patient with the resident and [...] from scratching area. Tatyana Walsh MD MPH CHIEF SECURITY AND SAFETY OFFICER, PGY3 Pager: [phone] 12/18/2016 12:08 AM Marleny Kang MD - 12/17/2016 12:35 PM CDT CHIEF SECURITY AND SAFETY OFFICER Progress Note Patient complaining of right ear pain. Notes some mild nasal stuffiness. Denies fever, postnasal drip, hearing changes, other signs of systemic illness including fevers. Denies history of ear infection. Gently cleans ears. Otoscopic exam without exudate or signs of infection, clear TM, no tenderness with motion. Will give debrox drops and monitor for symptoms. Marleny Kang MD CHIEF SECURITY AND SAFETY OFFICER PGY-3 Marleny Kang MD - 12/17/2016 11:29 AM CDT CHIEF SECURITY AND SAFETY OFFICER Progress Note Patient seen at bedside to [...] attempt at this time. Marleny Kang MD CHIEF SECURITY AND SAFETY OFFICER PGY-3 Lashawn Patel MD - 12/17/2016 6:56 [...] 12/17/16 0552 BP: 109/58 120/61 Pulse: Resp: 18 Temp: 97.6 ??F (36.4 ??C) 98 ??F (36.7 ??C) 98.4 ??F (36.9 ??C) TempSrc: Oral Oral Oral Weight: 82.1 kg (181 lb) Height: Gen: Resting comfortably in bed, NAD CV: Regular rate Resp: Normal respiratory effort Abd: Gravid, non-tender, non-distended Ext: warm, well-perfused FHT: Baseline 150's, moderate variability, + accels, no decels Wiley Ford: Quiet Assessment/Plan: Deann King is a 36 [...] and uterine monitoring. - S/p BMZ x2 (10/21/17-12/08/16). S/p 12+ hr of magnesium for neuroprotection. S/p Indocin for tocolysis through BMZ window. - S/p NICU consult. ? 4. Hepatitis C: - Hep C viral load 7,413,209. - Notify NICU of these results prior to delivery. - Needs follow up with GI or [facility] [employer] [facility] [employer] for treatment options . ? 5. History [...] accels, absent decels - appropriate for GA. Wiley Ford: no contractions No intervention needed at this time. Tatyana Walsh MD MPH CHIEF SECURITY AND SAFETY OFFICER, PGY3 Pager: [phone] 12/17/2016 Lashawn Patel MD - 12/16/2016 6:54 [...] 140s, moderate variability, + accels, no decels Wiley Ford: 0 ctx in 10 minutes, quiet Assessment/Plan: [...] - Needs follow up with GI or [facility] [employer] [facility] [employer] for treatment options . ? 5. History [...] and acupuncture as needed. Marleny Kang MD CHIEF SECURITY AND SAFETY OFFICER PGY-3 Physician Attestation I, Lashawn Patel, saw [...] accels, absent decels - appropriate for GA. Wiley Ford: no contractions No intervention needed at this time. Tatyana Walsh MD MPH CHIEF SECURITY AND SAFETY OFFICER, PGY3 Pager: [phone] 12/16/2016 2:14 AM Petrona Barone DO - [...] moderate variability, present accelerations (10x10), absent decelerations Wiley Ford: No contractions noted 12/03 MR IMPRESSION: 1. [...] - Needs follow up with GI or [facility] [facility] [employer] for treatment options . ? 5. History [...] MD OBGYN PGY3 Physician Attestation I, Petrona Barone, DO, saw [...] 150, moderate variability, present accelerations, absent decelerations Wiley Ford: No contractions noted 12/03 MR IMPRESSION: 1. [...] - Needs follow up with GI or [facility] [employer] [facility] [employer] for treatment options . ? 5. History [...] Petrona Barone DO, saw and evaluated Deann Maycol King with the resident. I personally reviewed [...] patient): 12/14/16 Time Spent on this Encounter IPetrona DO, spent a total of 15 minutes face to face or coordinating care of DeannMaycol Fernando. Over 50% of my time on the [...] patient, she is agreeable. 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 Over the past 2 weeks she has [...] be monitored and evaluated per protocol. Echo Garham RD, LD Unit Pager: [phone] Nora Mohamud MD - 12/13/2016 8:50 AM [...] her questions were answeredtoday. ? Objective: Vitals: 12/12/165 12/12/16 2330 12/13/16 0330 12/13/16 0836 BP: [...] variable decels. Overall appropriate for gestational age. Wiley Ford: no contractions, quiet ? US (12/08): posterior/left [...] - Needs follow up with GI or [facility] [employer] for treatment options . ? 5. History [...] the treatment of hepatitis C with a welding machine tender. A consultation was placed to discuss management [...] 6. Hepatitis C - s/p GI at [facility] in 2013, genotype 1a, inpatient GI [...] patient): December 13, 2016 Nora Mohamud MD Arnp, CHIEF SECURITY AND SAFETY OFFICER Maternal- Medicine [email or web address] [phone] (Academic office) [phone] (Pager) Tatyana Walsh MD - 12/13/2016 3:23 AM CDT Strip Review (Not delayed due to patient care) FHT: Baseline 150s bpm, moderate variability, prolonged accels, absent decels - appropriate for GA. Wiley Ford: no contractions No intervention required at this time. Tatyana Walsh MD MPH CHIEF SECURITY AND SAFETY OFFICER, PGY3 Pager: [phone] 12/13/2016 3:23 AM Jess Bernstein LICSW - 12/12/2016 11:11 AM CDT Met with patient today and completed Medical Referral Source application. Application faxed today. SW will continue [...] small decels. Overall appropriate for gestational age. Wiley Ford: no contractions, quiet ? US (12/08): posterior/left [...] - Needs follow up with GI or [facility] [employer] [facility] [employer] for treatment options . ? 5. History [...] 6. Hepatitis C - s/p GI at [facility] in 2013, genotype 1a - normal [...] patient): December 12, 2016 Nora Mohamud MD Arnp, CHIEF SECURITY AND SAFETY OFFICER Maternal- Medicine [email or web address] [phone] (Academic office) [phone] (Pager) Tatyana Walsh MD - 12/12/2016 12:53 AM CDT Strip Review (Not delayed due to patient care, services at 2200 on 12/11/2016) FHT: Baseline 140-150s bpm, moderate variability, prolonged accels, absent decels - appropriate for GA. Wiley Ford: no contractions No intervention required at this time. Tatyana Walsh MD MPH CHIEF SECURITY AND SAFETY OFFICER, PGY3 Pager: [phone] 12/12/2016 12:53 AM Nora Kovacs, PT - [...] in agreement with plan of care Yes [facility] [employer] TM 6 Clicks ?? 2016, Trustees of [facility], under license to [employer]. All rights reserved. 6 Clicks Short Forms Basic Mobility Inpatient Short Form [facility]??? 6 Clicks V.2 Basic Mobility Inpatient Short [...] small decels. Overall appropriate for gestational age. Wiley Ford: no contractions, quiet ? US (12/08): posterior/left [...] - Needs follow up with GI or [facility] [facility] [employer] for treatment options . ? 5. History [...] 6. Hepatitis C - s/p GI at [facility] in 2013, genotype 1a - normal [...] patient): December 11, 2016 Nora Mohamud MD Arnp, CHIEF SECURITY AND SAFETY OFFICER Maternal- Medicine [email or web address] [phone] (Academic office) [phone] (Pager) Tatyana Walsh MD - 12/10/2016 11:23 PM CDT Strip Review FHT: Baseline 150s bpm, moderate variability, present accels, absent decels - appropriate for GA. Wiley Ford: no contractions No intervention needed at this time. Tatyana Walsh MD MPH CHIEF SECURITY AND SAFETY OFFICER, PGY3 Pager: [phone] 12/10/2016 11:24 PM Jess Bernstein TOOL AND DIE MAKER LEVEL FIVE - 12/10/2016 11:49 AM CDT [facility] MATERNAL CHILD HEALTH SOCIAL WORK PROGRESS NOTE DATA: Met with Deann to assess needs and to offer support. Patient is 36 year-old, Deann King. She and her , Rafal have been for two years. They live in subsidized housing in [place], [place]. Deann and Rafal know they are [...] defect and was in the NICU at [facility]. in November 2014 at 5 1/2 months of age Jennifer - 19.3 week gestation loss in 2016 Rafal is the biological father of Juan [...] work. Rafal works at a factory in [place].Rafal does not have his solid waste truck driver's license. Deann did not offer [...] Assistance, talamantes and food assistance benefits through [facility]. Baby Lopez will be added to these programs upon . Deann would like to switch her MA to [facility] and is asking for assistance with this. Encouraged Deann to contact [facility] Economic Assistance and ask to speak to a financial worker to see what is needed to make this change. Deann is not currently enrolled in [facility] but is interested in application for these benefits. JACKIE contacted [facility] today and message left for the Neon Light Installer to see if it is possible to enroll Deann and her 4 year-old son in [facility] while Deann is hospitalized. Deann has only limited baby supplies-- some clothing and a swing. SW can provide assistance with a Pack N Play and diapers from [employer]. Deann has history of chemical abuse. She [...] this experience that having an ongoing social science research assistant can be helpful to her and to her children. She has been working with a SW at [facility] (Francisco [phone]) . Deann identifiesthis SW at very supportive. [...] results from her echo today from the physical optics teacher. She informed us everything looked normal. She [...] Objective: Vitals: 12/09/16 1330 12/09/16 1645 12/09/16 21012/10/16 0055 BP: 126/74 122/72 Pulse: Resp: 16 [...] small decels. Overall appropriate for gestational age. Wiley Ford: 1 contraction in 1 hour, not felt [...] - Needs follow up with GI or [facility] [employer] [facility] [employer] for treatment options . ? 5. History [...] 6. Hepatitis C - s/p GI at [facility] in 2013, genotype 1a - normal [...] patient): December 10, 2016 Nora Mohamud MD Arnp, CHIEF SECURITY AND SAFETY OFFICER Maternal- Medicine [email or web address] [phone] (Academic office) [phone] (Pager) ?? Tatyana Walsh MD - 12/09/2016 10:46 PM CDT Strip Review FHT: Baseline 150s bpm, moderate variability, present accels, absent decels - appropriate for GA. Wiley Ford: 1 contractions/30 mins No intervention needed at this time. Hypothyroidism - TSH returned at normal range - no change to current synthroid needed. Depression - pending psych consult at this time. Continue home effexor. Tatyana Walsh MD MPH CHIEF SECURITY AND SAFETY OFFICER, PGY3 Pager: [phone] 12/09/2016 10:46 PM Nora Mohamud MD - [...] 130s, moderate variability, + accels, no decels Wiley Ford: quiet, 0 ctx in 10 minutes US [...] US (last 12/08). - S/p BMZ course (). S/p 12+ hr of magnesium for neuroprotection. [...] will follow-up on administration. Marleny Kang MD CHIEF SECURITY AND SAFETY OFFICER PGY-3 Maternal- Medicine Attending Addendum Late entry, [...] 6. Hepatitis C - s/p GI at [facility] in 2013, genotype 1a - normal [...] patient): December 09, 2016 Nora Mohamud MD Arnp, CHIEF SECURITY AND SAFETY OFFICER Maternal- Medicine [email or web address] [phone] (Academic office) [phone] (Pager) Tatyana Walsh MD - 12/08/2016 7:58 PM CDT Strip Review FHT: Baseline 150s bpm, moderate variability, present accels, absent decels - appropriate for GA. Wiley Ford: no contractions, uterine irritability Tatyana Walsh MD MPH CHIEF SECURITY AND SAFETY OFFICER, PGY3 Pager: [phone] 12/08/2016 8:00 PM Italia Galarza, DO - 12/08/2016 11:28 AM CDT MFM [...] 140s, moderate variability, + accels, no decels Wiley Ford: 0 ctx in 10 minutes US (12/08): [...] and Tdap ordered today. Marleny Kang MD CHIEF SECURITY AND SAFETY OFFICER PGY-3 Attending Attestation: I agree with the residents note above. I spent 15 minutes total pjiu-bk-xahi with this inpatient, and >50% of the [...] toxicity at this time. Rossana Barker MD Community Resource Consultant, PGY-3 12/08/2016, 2:23 AM documented in this encounter H&P Notes MonroeNora MD - 12/07/2016 3:06 PM CDT [facility] OB History and Physical Deann King Age: [age] year old Date of : 1980 CC: Leakage of fluid HPI: . Deann King is a 36 year old [...] Negative Negative for C. trachomatis rRNA by systems development consultant mediated amplification. A negative result by systems development consultant mediated amplification does not preclude the presence of C. trachomatis infection because results are dependent on proper and adequate collection, absence of inhibitors, and sufficient rRNA to be detected. [facility] 08/29/2016 Negative Negative for N. gonorrhoeae rRNA by systems development consultant mediated amplification. A negative result by systems development consultant mediated amplification does not preclude the presence [...] BREAST SURGERY ABcess drained ??? SECTION ??? CAMERA PROTOTYPING ENGINEER SURGERY ??? ORTHOPEDIC SURGERY ??? THORACIC SURGERY [...] 150, moderate variability, no accelerations, no decelerations Wiley Ford: 0 contractions in 10 minutes Assessment Ms. [...] Sofía Cao APRN, CNP, 12/20/2016 4:09 PM [facility] Intensive Care Unit So Onofre PsyD - [...] a consultation by Nora Mohamud MD at [facility] Antepartum. Patient is currentlyunemployed. She had been working for her mother's [employer] service, but had to stop due to [...] through lifestyle changes. She and her attend zoroastrianism-based meetings twice a week and no longer [...] provider, she may schedule outpatient follow-up with [facility] (call [phone] and inform test grader that you are or have recently had a baby) or contact insurance company for additional referrals.? Please contact [facility] if patient is in need of supports while on antepartum.?? She currently denies need for ongoing mental health support services. Provider routed the results of this consultation and treatment recommendations to referring provider. Provider reviewed the results of this consultation and treatment recommendations with referring provider via [place] Referral to another professional/service is not indicated at this time.. So ROWLAND PsyD, NEO December 17, 2016 Gabby [...] time to herself. She asked if this machine sign writer could return tomorrow or later this afternoon, but this machine sign writer told her that she is booked and won't be able to accommodate except for this morning. Tennis Racket Repairer mentioned at the end that if she [...] time to herself. She asked if this machine sign writer could return tomorrow or later this afternoon, but this machine sign writer told her that she is booked and won't be able to accommodate except for this morning. Tennis Racket Repairer mentioned at the end that if she [...] this service's next availability). Madonna Carrasquillo APRN TRAINING FACILITATOR - 12/07/2016 5:00 PM CDTAssociated Order(s): NURSE [...] intraventricular hemorrhage, nutrition, growth and development, and custodial outcomes. Please feel free to call with any additional questions or concerns. Madonna Carrasquillo APRN, [facility] 12/07/2016 6:51 PM Nurse Practitioner Service Intensive Care Unit [facility] Floor Time (min): 5 Face to Face [...] leveled and Zeroed, after labs were drawn, Jbphh was removed with approval of Dr Torres. Site held for 5 minutes and dressing placed to Left wrist, no bleeding or oozing noted at that time. Pt VSS, capnography started, pt's family updated via phone, will report to floor RN. TANCE ADDICTION COORDINATOR Lisa Rubio RN - 12/25/2016 1:42 AM CST PACU to Inpatient Nursing Handoff Patient Deann King is a 36 year old female who speaks Armenian. Procedure Procedure(s): Section Immediate Hysterectomy, Bilateral Salpingectomy [...] mg (total dose) last given at 0131 MOISTURE CONDITIONER OPERATOR / epidural Yes. MOISTURE CONDITIONER OPERATOR - hydromorphone (Dilaudid) Capnography Telemetry ECG [...] numbness;no tingling (12/24/16 0922) Equipment capnography and MOISTURE CONDITIONER OPERATOR Other LDA IV Access Peripheral IV [...] 12/24/16 Left Lower forearm (Active) Site Assessment WD 12/25/2016 12:38 AM Line Status Infusing 12/25/2016 [...] 12/25/2016 12:05 AM Rationale for Continued Use Anesthesia;/GI/CAMERA PROTOTYPING ENGINEER Pelvic Procedure 12/25/2016 12:05 AM Urine Output 235 mL 12/25/2016 1:12 AM Number of days:1 Time of void PreOp Void Prior to Procedure: 1835 (12/24/162005) PostOp Voided (mL): 150 mL (12/08/16447) Urine Occurrence: 0 (12/20/16 040) Bladder Scan PO 118 mL (12/08/16 011) tolerating sips Vitals B/P: 105/59 T: 97.9 [...] the antepartum RN. Lisa Rubio, RN ASCOM [id number] TANCE ADDICTION COORDINATOR documented in this encounter Miscellaneous Notes Plan [...] questions and will d/c from inpatient PT. TANCE ADDICTION COORDINATOR Associated attestation - Roxy Sr PT - 12/27/2016 6:21 PM SUBSTANCE ADDICTION COORDINATOR Physical Therapy Discharge Summary Reason for therapy discharge: Discharged to home with outpatient therapy. Progress towards therapy goal(s). [facility] for goal [...] leaving. F/U in clinic understood by patient. TANCE ADDICTION COORDINATOR Plan of Care - Erika Villalpando RN - 12/27/2016 7:50 AM CST Referral made to [facility] for early dc. TANCE ADDICTION COORDINATOR Plan of Care - Lucia Cotton RN [...] out which was taken to the nicu. TANCE ADDICTION COORDINATOR Plan of Care - Hyacinth Wolf RN [...] more. Will continue with plan of Care. TANCE ADDICTION COORDINATOR Note - Nikky Smith RNC - 12/26/2016 [...] Will continue to provide support. Nikky Smith, RNC, IBCLC TANCE ADDICTION COORDINATOR Plan of Care - Lucia Cotton, RN [...] of without calling us to stand by. TANCE ADDICTION COORDINATOR Plan of Care - Yessenia Julian RN [...] at bedside. Continue with plan of care. TANCE ADDICTION COORDINATOR Provider Notification - Kristie Merida RN - 12/25/2016 9:01 PM CST Sepsis alert came up for pt. BP 91/63. HR of 115. SpO2 of 98. TANCE ADDICTION COORDINATOR Plan of Care - Maria Antonia Hidalgo RN - 12/25/2016 8:19 PM CST Problem: Patient Care Overview Goal: Plan of Care/Patient Progress Review Outcome: No Change Pt moved to room 7136 @ 1900. Report given to Kristie LAM. Pt up in wheelchair for several hours through out the day. Also visited infant twice and out to smoke times one. Pain increased after these activities. Pt has minimal bowel sounds with distended abdomen. Has not passed flatus. Encouraged patient to consume less solid food and increase fluid intake. Simethicone given for bloating. IV dilaudid, IV toradol and oral oxycodone given with initial relief. TANCE ADDICTION COORDINATOR Provider Notification - Kristie Merida RN - 12/25/2016 7:48 PM CST Do you want pt to continue with IV Toradol and Dilaudid? FYI-pt is going outside to smoke. TANCE ADDICTION COORDINATOR Plan of Care - Maria Antonia Hidalgo [...] Patient medicated during the shift with dilaudid MOISTURE CONDITIONER OPERATOR for pain, which was discontinued at [...] any other needs. Anticipate discharge on Friday. TANCE ADDICTION COORDINATOR Plan of Care - Maria Antonia Hidalgo [...] one hour. Fixed and working well now TANCE ADDICTION COORDINATOR Plan of Care - Khloe Elmore RN - 12/25/2016 5:50 AM CST Problem: ( Delivery) (Adult,Obstetrics,Pediatric) Goal: Signs and Symptoms of Listed Potential Problems Will be Absent, Minimized or Managed () Signs and symptoms of listed potential problems will be absent, minimized or managed by discharge/transition of care (reference ( Delivery) (Adult,Obstetrics,Pediatric) CPG). Outcome: No Change Pt's pain intolerable with MOISTURE CONDITIONER OPERATOR @ 0.2mg dilaudid every 10 minutes, dose increased to 0.3mg every 10 minutes with max dose delivery 1.2mg/hr. Pt's pain remains intolerable, but getting better, she falls asleep between MOISTURE CONDITIONER OPERATOR doses. TANCE ADDICTION COORDINATOR Op Note - So Nunez MD - 12/24/2016 11:53 PM CST [facility] Full Operative Progress Note Surgery Date: 12/24/2016 Surgeon: So Nunez MD Assistants: Marilu Lam MD Wrapper And Preserver/Onc staff Petrona Barone MD MFM staff Donita Barrow MD MFM fellow Margarita Talbert MD Wrapper And Preserver/Onc fellow Marleny Kang MD PGY-3 Tatyana Govea MD PGY-3 Kayla Davidson MD PGY-2 Exceptional Circumstances Require an Salesperson Hearing Aids Surgeon -Exceptional medical circumstances in this case required the participation of practice assistant surgeons Drs. Barone and Idania in [...] for dense bladder adhesions and bleeding, Dr. aLm of Gynecology Oncology wascontacted for assistance. While [...] entirety of the procedure. Marleny Kang MD Community Resource Consultant, PGY-3 12/24/2016, 11:54 PM I was present and scrubbed throughout the procedure, I agree with the note above So Nunez MD TANCE ADDICTION COORDINATOR Brief Op Note - Marleny Kang MD - 12/24/2016 11:23 PM CST [facility] Hysterectomy Brief Operative Note Surgery Date: 12/24/2016 Surgeon: So Nunez MD; Marilu Lam MD (intraoperative consult) Assistants: Petrona Barone MD [facility] staff Donita Barrow MD MFM fellow Margarita Talbert MD Wrapper And Preserver/Onc fellow Marleny Kang MD PGY-3 Tatyana Govea [...] Disposition: Stable to PACU Marleny Kang MD CHIEF SECURITY AND SAFETY OFFICER PGY-3 TANCE ADDICTION COORDINATOR Op Note - Marilu Lam MD - 12/24/2016 10:18 PM CST DATE OF SERVICE: 12/07/2016 Remainder of this note will be dictated by Dr. Nunez's service and for my portion is as follows: ATTENDING: Marilu Lam MD PSYCHOPAEDIC NURSE: Dr. Talbert, PGY 7 ANESTHESIA: GET COMPLICATIONS: [...] LAM MD MT: Name: DEANN KING Account: [id number] : 1980 Procedure Date: 12/07/2016 Document: [id number] TANCE ADDICTION COORDINATOR Plan of Care - Juanis Henson RN [...] Kang and questions answered. SCD's were placed. [facility] saw patient prior to transfer to the OR. There was no new bleeding after the spec exam and prior to transfer to cart. While transferto OR patient felt blood coming out and only a small amount was seen on perineum. Dr. Barone was updated on patient status while transfer to OR. TANCE ADDICTION COORDINATOR Plan of Care - Juanis Henson RN - 12/24/2016 6:04 PM CST Problem: Patient Care Overview Goal: Plan of Care/Patient Progress Review Outcome: No Change Continues to have cramping. Intensity remains the same. Continue to monitor. TANCE ADDICTION COORDINATOR Plan of Care - Nakia Figueroa PTA - 12/24/2016 4:18 PM CST Problem: PT General Care Plan Goal: PT target date for goal attainment PT: patient displayed improvement with pain and prior to treatment rated neck pain 4/10 and after manual therapy decreased to 0/10. Data Management Specialist PT Patient plan for discharge: home Current status: patient independent with all mobilities and HEP Barriers to return to prior living situation: none Recommendations for discharge: home would benefit from OP PT for management of neck and back Rationale for recommendations: decrease back and neck pain and improve posture. Entered by: Nakia Figueroa 12/24/2016 4:17 PM TANCE ADDICTION COORDINATOR Plan of Care - Petrona Sharif RN [...] 140s, with moderate variability and without decelerations. TANCE ADDICTION COORDINATOR Plan of Care - Annie Allen RN [...] labor, signs/symptoms of infection, or /maternal compromise. TANCE ADDICTION COORDINATOR Plan of Care - Annie Allen RN [...] reassured after exam. Continue plan of care. TANCE ADDICTION COORDINATOR Provider Notification - Annie Allen RN - 12/24/2016 12:02 AM CST 12/24/16 0002 Provider Notification Provider Name/Title Dr. Kang Method of Notification Electronic Page Request Evaluate - Remote Notification Reason Other (Comment) Pt requesting UA/UC for increased urine frequency. Thanks TANCE ADDICTION COORDINATOR Provider Notification - Juanis Henson RN - [...] see patient when she returns to floor. TANCE ADDICTION COORDINATOR Plan of Care - Juanis Henson RN [...] symptoms. RN will talk with Dr. Kang. TANCE ADDICTION COORDINATOR Plan of Care - Juanis Henson RN [...] ate, in case she progresses into labor. TANCE ADDICTION COORDINATOR Provider Notification - Leslie Mendoza RN - 12/23/2016 3:35 PM CST 12/23/16 0755 Provider Notification Provider Name/Title Dr. Walsh, Dr. Barone, Med student Method of Notification At Bedside Request Evaluate in Person Notification Reason Status Update TANCE ADDICTION COORDINATOR Plan of Care - Leslie Mendoza RN [...] labor, signs/symptoms of infection, or /maternal compromise. TANCE ADDICTION COORDINATOR Provider Notification - Leslie Mendoza RN - 12/23/2016 12:31 PM CST 12/23/16 0945 OB Patient Position Activity/Level of Assist Ambulating Patient went outside TANCE ADDICTION COORDINATOR Provider Notification - Leslie Mendoza RN - 12/23/2016 12:31 PM CST 12/23/16 0720 OB Patient Position Maternal Position Standing Activity/Level of Assist Ambulating Patient went outside (to smoke) TANCE ADDICTION COORDINATOR Provider Notification - Leslie Mendoza RN - 12/23/2016 7:58 AM CST Providers here for morning rounds and EFM strip review. Patient concerned about her oral pain on hertongue. There is a sore/ulceration there. Providers reminding patient to NOT self examine digitally her cervix. TANCE ADDICTION COORDINATOR Plan of Care - Bonita Love RN [...] Will continue with current plan of care. TANCE ADDICTION COORDINATOR Provider Notification - Bonita Love RN - 12/22/2016 8:02 PM SUBSTANCE ADDICTION COORDINATOR 12/22/162000 Provider Notification Provider Name/Title Dr. Kang Method of Notification In Department Notification Reason Other (Comment) Patient reporting increased leaking of fluid today. Yellow colored on pads, no odor. Patient is not having any abdominal tenderness. Afebrile. Pt declines monitoring at this time. Dr. Kang updated. TANCE ADDICTION COORDINATOR Plan of Care - Yareli Marsh RN [...] today. Will continue with plan of care. TANCE ADDICTION COORDINATOR Plan of Care - Wendy Richter RN [...] VSS; EFM as charted. Continue expectant management. TANCE ADDICTION COORDINATOR Plan of Care - Wendy Richter RN - 12/22/2016 3:13 AM CST Due to daylight savings time, labor calculations, ruptured membrane calculations and/or cervical exams times may be off by up to one hour from the actual time. A summary of the times/calcuations follows: None for this patient. TANCE ADDICTION COORDINATOR Plan of Care - So Cheng RN [...] son. They have been working on some Aibo blankCoppertinoand watching movies. Pt continues to go outside [...] the bathroom for longer period of time. Data Management Specialist PT Patient plan for discharge: home Current [...] to monitor and update providerwith any changes. Wiley Ford quiet and EFM mod variability, occasional accels, [...] No visitors last diana but worked on [employer] and did other crafts/games. No complaints today. [...] with any changes. Plan of Care - oS Solano RN - 12/18/2016 11:28 PM CDT [...] axillary as well as left upper abd. Trosky, raised areas, itches but also dalton per [...] postural exercises and relief with suboccipital release. Data Management Specialist PT Patient plan for discharge: home Current [...] functional goals as expected D: Patient called machine sign writer into room at 1230 stating pain in her side after laughing at the cartoon onthe tv. Placed on EFM, no contractions noted accelerations and baby appropriate for gestational age.Patient called machine sign writer back into room at 1305 stating that the pain was gone and that she needed to go out and smoke. Instructed her that we would like to get 1 hour of EFM. Patient states the pain in gone and she needs to get outside. Monitors removed and will monitor later today. P :Continue to monitor. Provider Notification - Laeny Silva RN - 12/14/2016 7:49 AM CDT [...] of Care/Patient Progress Review Outcome: No Change Tennis Racket Repairer went to assess vital signs. Pt. Stated that she had some reddish pink mucus in the toilet andsome pink fluid on the toilet tissue. Small quarter sized reddish pink mucus noted in the bottom of the toilet. Urine was yellow colored, no blood noted. Tennis Racket Repairer placed and uterine monitors on thepatient. Patient [...] scant bloody mucus in toilet when voided. Trosky on toilet tissue. Dr. Cyr notified of [...] leak scant clear fluid intermittently. Denies bleeding, cramping/mahanz. No cx on toco. VSS. FHR baseline [...] Pt declines at this time. With social science research assistant at this time. Pt declines a nicotine [...] within reach. Pt states understanding to put missile control pilot light if any change in condition. Plan [...] Overview Goal: Plan of Care/Patient Progress Review Data Management Specialist PT Patient plan for discharge: Home Current [...] within reach. Pt states understanding to put missile control pilot light if any changes in condition. Plan [...] status, reassured that assessment is AGA. Per margareth Long for pt to set schedule for suboxone in accordance to how pt takes medication at home. Continue with current plan of care. Provider Notification - Pilar Ortiz RN - 12/10/2016 5:32 PM CDT 12/10/16 0487 Provider Notification Provider Name/Title Dr. Kang Method [...] orintensity. Abdomen palpates soft, and toco didn't tack picker any contractions. FHT: mod variability with [...] for gestational age. Provider Notification - Juanis Henson, RN - 12/09/2016 11:31 PM CDT 12/09/16 [...] Delivery Anes PTL Lv 9 Current 8 03/16 19w3d / 01:06 0.325 kg (11.5 oz) [...] arrival and history, gross ROM. SSE by , cervix appears closed. Plan per provider is admit, betamethasone, IV antibiotics, magnesium. Patient verbalized agreement with plan. Bedside report given to Ketty Harris RN at 1520. documented in this encounter Plan of Treatment Upcoming Encounters Date Type Specialty Care Team Description 11/29/2021 Office Visit Wound Care Luis Camara DPM [address] [place] [address] (Wo rk) 01/21/2022 Office Visit Gastroenterology Juanis Levi [address] [place] [address] Luis Fernando Miles MD [address] [facility] [address] [place] [address] Pending Results Name Type Priority Associated Date/Time Diagnoses Transfuse red blood Nursing Transfusion STAT 1 02/24/2016 8:10 cell unit PM SUBSTANCE ADDICTION COORDINATOR Transfuse red blood Nursing Transfusion STAT 1 02/24/2016 8:15 cell unit PM SUBSTANCE ADDICTION COORDINATOR Transfuse plasma unit Nursing Transfusion Routine 12/24/2016 8:48 PM SUBSTANCE ADDICTION COORDINATOR Transfuse red blood Nursing Transfusion STAT 1 02/24/2016 8:42 cell unit PM SUBSTANCE ADDICTION COORDINATOR Transfuse red blood Nursing Transfusion STAT 1 02/24/2016 9:30 cell unit PM SUBSTANCE ADDICTION COORDINATOR Transfuse red blood Nursing Transfusion STAT 1 02/24/2016 8:59 cell unit PM SUBSTANCE ADDICTION COORDINATOR Transfuse red blood Nursing Transfusion STAT 1 02/24/2016 8:58 cell unit PM SUBSTANCE ADDICTION COORDINATOR Transfuse red blood Nursing Transfusion STAT 1 02/24/2016 8:47 cell unit PM SUBSTANCE ADDICTION COORDINATOR Placenta path order and Lab Routine 08/2016 8:05 indications PM SUBSTANCE ADDICTION COORDINATOR Transfuse platelets Nursing Transfusion Routine 1 02/24/2016 9:19 unit PM SUBSTANCE ADDICTION COORDINATOR Transfuse red blood Nursing Transfusion STAT 1 02/24/2016 10:15 cell unit PM SUBSTANCE ADDICTION COORDINATOR Transfuse red blood Nursing Transfusion STAT 1 02/24/2016 10:50 cell unit PM SUBSTANCE ADDICTION COORDINATOR Transfuse red blood Nursing Transfusion STAT 1 02/24/2016 9:56 cell unit PM SUBSTANCE ADDICTION COORDINATOR Cryoprecipitate prepare Blood Bank Routine Chronic hepatitis 12/24/2016 10:59 order unit C without hepatic PM SUBSTANCE ADDICTION COORDINATOR coma (H) Transfuse Nursing Transfusion Routine 12/25/19 17 11:10 cryoprecipitate unit PM SUBSTANCE ADDICTION COORDINATOR Scheduled Referrals Name Type Priority Associated Diagnoses Order S chedule GASTROENTEROLOGY ADULT REF Referral Routine Chronic hepati tis C Ordered: 12/26/2016 CONSULT ONLY without hepatic coma (H) DENTAL REFERRAL Referral Routine Dental caries Ordered: documented as of this encounter Procedures Procedure Name Priority Date/Time Associated Comments Diagnosis CBC WITH PLATELETS Routine 12/26/2016 8:10 Chronic hepatitis R esults for this AM SUBSTANCE ADDICTION COORDINATOR C without hepatic procedure are in coma (H) the results section. CBC WITH PLATELETS Timed 12/25/2016 2:04 Chronic hepatitis R esults for this PM SUBSTANCE ADDICTION COORDINATOR C without hepatic procedure are in coma (H) the results section. INR Timed 12/25/2016 7:00 Chronic hepatitis Results for this AM SUBSTANCE ADDICTION COORDINATOR C without hepatic procedure are in coma (H) the results section. PARTIAL THROMBOPLASTIN Timed 12/25/2016 7:00 Chronic hepatit is Results for this TIME AM SUBSTANCE ADDICTION COORDINATOR C without hepatic procedure are in coma (H) the results section. MAGNESIUM Timed 12/25/2016 7:00 Chronic hepatitis Results for this AM SUBSTANCE ADDICTION COORDINATOR C without hepatic procedure are in coma (H) the results section. FIBRINOGEN ACTIVITY Timed 12/25/2016 7:00 Chronic hepatitis Results for this AM SUBSTANCE ADDICTION COORDINATOR C without hepatic procedure are in coma (H) the results section. BASIC METABOLIC PANEL Timed 12/25/2016 7:00 Chronic hepatiti s Results for this AM SUBSTANCE ADDICTION COORDINATOR C without hepatic procedure are in coma (H) the results section. CBC WITH PLATELETS Timed 12/25/2016 7:00 Chronic hepatitis R esults for this AM SUBSTANCE ADDICTION COORDINATOR C without hepatic procedure are in coma (H) the results section. INR Routine 12/25/2016 12:54 Chronic hepatitis Result s for this AM SUBSTANCE ADDICTION COORDINATOR C without hepatic procedure are in coma (H) the results section. PARTIAL THROMBOPLASTIN Routine 12/25/2016 12:54 Chronic hepati tis Results for this TIME AM SUBSTANCE ADDICTION COORDINATOR C without hepatic procedure are in coma (H) the results section. FIBRINOGEN ACTIVITY Routine 12/25/2016 12:54 Chronic hepatitis Results for this AM SUBSTANCE ADDICTION COORDINATOR C without hepatic procedure are in coma (H) the results section. BASIC METABOLIC PANEL Routine 12/25/2016 12:54 Chronic hepatit is Results for this AM SUBSTANCE ADDICTION COORDINATOR C without hepatic procedure are in coma (H) the results section. CBC WITH PLATELETS Routine 12/25/2016 12:54 Chronic hepatitis Results for this AM SUBSTANCE ADDICTION COORDINATOR C without hepatic procedure are in coma (H) the results section. XR ABDOMEN PORT 1 VIEW STAT 12/24/2016 11:10 R esults for this PM SUBSTANCE ADDICTION COORDINATOR procedure are i n the results section. TRANSFUSE Routine 12/24/2016 11:10 CRYOPRECIPITATE UNIT PM SUBSTANCE ADDICTION COORDINATOR BLOOD COMPONENT Routine 12/24/2016 10:59 Chronic hepatitis Res ults for this PM SUBSTANCE ADDICTION COORDINATOR C without hepatic procedure are in coma (H) the results section. PREPARE CRYOPRECIPITATE Routine 12/24/2016 10:59 Chronic hepat itis (SINGLE UNIT) PM SUBSTANCE ADDICTION COORDINATOR C without hepatic coma (H) TRANSFUSE RED BLOOD CELL STAT 12/24/2016 10:50 UNIT PM SUBSTANCE ADDICTION COORDINATOR ARTERIAL PANEL Routine 12/24/2016 10:45 Chronic hepatitis Resu lts for this PM SUBSTANCE ADDICTION COORDINATOR C without hepatic procedure are in coma (H) the results section. TRANSFUSE RED BLOOD CELL STAT 12/24/2016 10:15 UNIT PM SUBSTANCE ADDICTION COORDINATOR SURGICAL PATHOLOGY EXAM Routine 12/24/2016 10:13 Results for this PM SUBSTANCE ADDICTION COORDINATOR procedure are i n the results section. TRANSFUSE RED BLOOD CELL STAT 12/24/2016 9:56 UNIT PM SUBSTANCE ADDICTION COORDINATOR ARTERIAL PANEL Routine 12/24/2016 9:50 Chronic hepatitis Resul ts for this PM SUBSTANCE ADDICTION COORDINATOR C without hepatic procedure are in coma (H) the results section. INR Routine 12/24/2016 9:50 Chronic hepatitis Results for this PM SUBSTANCE ADDICTION COORDINATOR C without hepatic procedure are in coma (H) the results section. PARTIAL THROMBOPLASTIN Routine 12/24/2016 9:50 Chronic hepatit is Results for this TIME PM SUBSTANCE ADDICTION COORDINATOR C without hepatic procedure are in coma (H) the results section. FIBRINOGEN ACTIVITY Routine 12/24/2016 9:50 Chronic hepatitis Results for this PM SUBSTANCE ADDICTION COORDINATOR C without hepatic procedure are in coma (H) the results section. CBC WITH PLATELETS Routine 12/24/2016 9:50 Chronic hepatitis R esults for this PM SUBSTANCE ADDICTION COORDINATOR C without hepatic procedure are in coma (H) the results section. TRANSFUSE RED BLOOD CELL STAT 12/24/2016 9:30 UNIT PM SUBSTANCE ADDICTION COORDINATOR ARTERIAL PANEL Routine 12/24/2016 9:20 Chronic hepatitis Resul ts for this PM SUBSTANCE ADDICTION COORDINATOR C without hepatic procedure are in coma (H) the results section. TRANSFUSE PLATELETS UNIT Routine 12/24/2016 9:19 PM SUBSTANCE ADDICTION COORDINATOR TRANSFUSE RED BLOOD CELL STAT 12/24/2016 8:59 UNIT PM SUBSTANCE ADDICTION COORDINATOR TRANSFUSE RED BLOOD CELL STAT 12/24/2016 8:58 UNIT PM SUBSTANCE ADDICTION COORDINATOR TRANSFUSE PLASMA UNIT Routine 12/24/2016 8:48 PM SUBSTANCE ADDICTION COORDINATOR TRANSFUSE RED BLOOD CELL STAT 12/24/2016 8:47 UNIT PM SUBSTANCE ADDICTION COORDINATOR BLOOD COMPONENT Routine 12/24/2016 8:45 Chronic hepatitis Resu lts for this PM SUBSTANCE ADDICTION COORDINATOR C without hepatic procedure are in coma (H) the results section. BLOOD COMPONENT Routine 12/24/2016 8:45 Chronic hepatitis Resu lts for this PM SUBSTANCE ADDICTION COORDINATOR C without hepatic procedure are in coma (H) the results section. PREPARE PLATELETS ORDER Routine 12/24/2016 8:45 Chronic hepati tis Results for this UNIT PM SUBSTANCE ADDICTION COORDINATOR C without hepatic procedure are in coma (H) the results section. ARTERIAL PANEL Routine 12/24/2016 8:44 Chronic hepatitis Resul ts for this PM SUBSTANCE ADDICTION COORDINATOR C without hepatic procedure are in coma (H) the results section. INR Routine 12/24/2016 8:44 Chronic hepatitis Results for this PM SUBSTANCE ADDICTION COORDINATOR C without hepatic procedure are in coma (H) the results section. PARTIAL THROMBOPLASTIN Routine 12/24/2016 8:44 Chronic hepatit is Results for this TIME PM SUBSTANCE ADDICTION COORDINATOR C without hepatic procedure are in coma (H) the results section. FIBRINOGEN ACTIVITY Routine 12/24/2016 8:44 Chronic hepatitis Results for this PM SUBSTANCE ADDICTION COORDINATOR C without hepatic procedure are in coma (H) the results section. CBC WITH PLATELETS Routine 12/24/2016 8:44 Chronic hepatitis R esults for this PM SUBSTANCE ADDICTION COORDINATOR C without hepatic procedure are in coma (H) the results section. TRANSFUSE RED BLOOD CELL STAT 12/24/2016 8:42 UNIT PM SUBSTANCE ADDICTION COORDINATOR ARTERIAL PANEL Routine 12/24/2016 8:25 Chronic hepatitis Resul ts for this PM SUBSTANCE ADDICTION COORDINATOR C without hepatic procedure are in coma (H) the results section. PLACENTA PATH ORDER AND Routine 12/24/2016 8:05 INDICATIONS PM SUBSTANCE ADDICTION COORDINATOR BLOOD COMPONENT Routine 12/24/2016 7:25 Chronic hepatitis Resu lts for this PM SUBSTANCE ADDICTION COORDINATOR C without hepatic procedure are in coma (H) the results section. BLOOD COMPONENT Routine 12/24/2016 7:25 Chronic hepatitis Resu lts for this PM SUBSTANCE ADDICTION COORDINATOR C without hepatic procedure are in coma (H) the results section. BLOOD COMPONENT Routine 12/24/2016 7:25 Chronic hepatitis Resu lts for this PM SUBSTANCE ADDICTION COORDINATOR C without hepatic procedure are in coma (H) the results section. BLOOD COMPONENT Routine 12/24/2016 7:25 Chronic hepatitis Resu lts for this PM SUBSTANCE ADDICTION COORDINATOR C without hepatic procedure are in coma (H) the results section. BLOOD COMPONENT Routine 12/24/2016 7:25 Chronic hepatitis Resu lts for this PM SUBSTANCE ADDICTION COORDINATOR C without hepatic procedure are in coma (H) the results section. BLOOD COMPONENT Routine 12/24/2016 7:25 Chronic hepatitis Resu lts for this PM SUBSTANCE ADDICTION COORDINATOR C without hepatic procedure are in coma (H) the results section. BLOOD COMPONENT Routine 12/24/2016 7:25 Chronic hepatitis Resu lts for this PM SUBSTANCE ADDICTION COORDINATOR C without hepatic procedure are in coma (H) the results section. BLOOD COMPONENT Routine 12/24/2016 7:25 Chronic hepatitis Resu lts for this PM SUBSTANCE ADDICTION COORDINATOR C without hepatic procedure are in coma (H) the results section. PREPARE PLASMA (UNIT) Routine 12/24/2016 7:25 Chronic hepatiti s Results for this PM SUBSTANCE ADDICTION COORDINATOR C without hepatic procedure are in coma (H) the results section. HYSTERECTOMY, FOLLOWING 12/24/2016 7:24 SECTION PM SUBSTANCE ADDICTION COORDINATOR CBC WITH PLATELETS & STAT 12/24/2016 7:06 Chronic hepatitis Results for this DIFFERENTIAL PM SUBSTANCE ADDICTION COORDINATOR C without hepatic procedure are in coma (H) the results section. ROUTINE UA WITH Routine 12/24/2016 7:50 Chronic hepatitis Resu lts for this MICROSCOPIC REFLEX TO AM SUBSTANCE ADDICTION COORDINATOR C without hepatic p rocedure are in CULTURE coma (H) the results section. URINE CULTURE Routine 12/24/2016 7:50 Chronic hepatitis Result s for this AM SUBSTANCE ADDICTION COORDINATOR C without hepatic procedure are in coma (H) the results section. WET PREPARATION Routine 12/23/2016 11:53 Chronic hepatitis Res ults for this PM SUBSTANCE ADDICTION COORDINATOR C without hepatic procedure are in coma (H) the results section. MFM BPP SINGLE Routine 12/23/2016 8:37 Results fo r this AM SUBSTANCE ADDICTION COORDINATOR procedure are i n the results section. BLOOD COMPONENT Routine 12/23/2016 6:54 Chronic hepatitis Resu lts for this AM SUBSTANCE ADDICTION COORDINATOR C without hepatic procedure are in coma (H) the results section. BLOOD COMPONENT Routine 12/23/2016 6:54 Chronic hepatitis Resu lts for this AM SUBSTANCE ADDICTION COORDINATOR C without hepatic procedure are in coma (H) the results section. BLOOD COMPONENT Routine 12/23/2016 6:54 Chronic hepatitis Resu lts for this AM SUBSTANCE ADDICTION COORDINATOR C without hepatic procedure are in coma (H) the results section. BLOOD COMPONENT Routine 12/23/2016 6:54 Chronic hepatitis Resu lts for this AM SUBSTANCE ADDICTION COORDINATOR C without hepatic procedure are in coma (H) the results section. BLOOD COMPONENT Routine 12/23/2016 6:54 Chronic hepatitis Resu lts for this AM SUBSTANCE ADDICTION COORDINATOR C without hepatic procedure are in coma (H) the results section. BLOOD COMPONENT Routine 12/23/2016 6:54 Chronic hepatitis Resu lts for this AM SUBSTANCE ADDICTION COORDINATOR C without hepatic procedure are in coma (H) the results section. BLOOD COMPONENT Routine 12/23/2016 6:54 Chronic hepatitis Resu lts for this AM SUBSTANCE ADDICTION COORDINATOR C without hepatic procedure are in coma (H) the results section. BLOOD COMPONENT Routine 12/23/2016 6:54 Chronic hepatitis Resu lts for this AM SUBSTANCE ADDICTION COORDINATOR C without hepatic procedure are in coma (H) the results section. BLOOD COMPONENT Routine 12/23/2016 6:54 Chronic hepatitis Resu lts for this AM SUBSTANCE ADDICTION COORDINATOR C without hepatic procedure are in coma (H) the results section. BLOOD COMPONENT Routine 12/23/2016 6:54 Chronic hepatitis Resu lts for this AM SUBSTANCE ADDICTION COORDINATOR C without hepatic procedure are in coma (H) the results section. BLOOD COMPONENT Routine 12/23/2016 6:54 Chronic hepatitis Resu lts for this AM SUBSTANCE ADDICTION COORDINATOR C without hepatic procedure are in coma (H) the results section. BLOOD COMPONENT Routine 12/23/2016 6:54 Chronic hepatitis Resu lts for this AM SUBSTANCE ADDICTION COORDINATOR C without hepatic procedure are in coma (H) the results section. ABO/RH TYPE AND SCREEN Routine 12/23/2016 6:54 Chronic hepatit is Results for this AM SUBSTANCE ADDICTION COORDINATOR C without hepatic procedure are in coma (H) the results section. ABO/RH TYPE AND SCREEN Timed 12/20/2016 10:48 Chronic hepati tis Results for this AM CDT C without hepatic procedure are in coma (H) the results section. [facility] BPP SINGLE Routine 12/19/2016 8:46 Results fo r this AM CDT procedure are i n the results section. ABO/RH TYPE AND SCREEN Timed 12/17/2016 6:54 Chronic hepatit is Results for this AM CDT C without hepatic procedure are in coma (H) the results section. [facility] US OB LIMITED Routine 12/16/2016 9:24 Results [...] procedure are i n the results section. [facility] OB LIMITED Routine 12/12/2016 8:36 Results for this SINGLE/MULTIPLE AM CDT procedure ar e in the results section. ABO/RH TYPE AND SCREEN Timed 12/11/2016 9:05 Re sults for this AM CDT procedure are i n the results section. ECHO COMPLETE* Routine 12/10/2016 9:05 Resu lts for this AM CDT procedure are i n the results section. [facility] US COMPREHENSIVE Routine 12/08/2016 9:52 Resu lts [...] (ABNORMAL) CBC with platelets (12/26/2016 8:10 AM SUBSTANCE ADDICTION COORDINATOR) [facility] Method Time Signature WBC 8.5 4.0 - 11.0 12/26/2016 [facility] 10e9/L 8:20 AM SUBSTANCE ADDICTION COORDINATOR [facility] RBC Count 3.19 (L) 3.8 - 5.2 12/26/2016 [facility] 10e12/L 8:20 AM [facility] Hemoglobin 9.2 (L) 11.7 - 12/26/2016 [facility] 15.7 g/dL 8:20 AM [facility] Hematocrit 27.2 (L) 35.0 - 12/26/2016 [facility] 47.0 % 8:20 AM [facility] MCV 85 78 - 100 12/26/2016 [facility] fl 8:20 AM [facility] MCH 28.8 26.5 - 12/26/2016 [facility] 33.0 pg 8:20 AM [facility] MCHC 33.8 31.5 - 12/26/2016 [facility] 36.5 g/dL 8:20 AM [facility] RDW 14.7 10.0 - 12/26/2016 [facility] 15.0 % 8:20 AM [facility] Platelet Count 144 (L) 150 - 450 12/26/2016 [facility] 10e9/L 8:20 AM [facility] Specimen Anatomical Collection Method Collection Time Receive d Time (Source) Location / / Volume Laterality Blood specimen 12/26/2016 8:10 AM 017 8:12 (specimen) SUBSTANCE ADDICTION COORDINATOR AM SUBSTANCE ADDICTION COORDINATOR Kayla Davidson MD LAB - BLOOD ORDERABLES Performing Organization Address City/State/ZIP Code Phon e Number [facility] [address] [place] [address] [facility] (ABNORMAL) CBC with platelets (12/25/2016 2:04 PM SUBSTANCE ADDICTION COORDINATOR) [facility] gist Method Time Signature WBC 9.7 4.0 - 11.0 12/25/2016 [facility] 10e9/L 2:10 PM [facility] RBC Count 3.45 (L) 3.8 - 5.2 12/25/2016 [facility] 10e12/L 2:10 PM [facility] Hemoglobin 10.1 (L) 11.7 - 12/25/2016 [facility] 15.7 g/dL 2:10 PM [facility] Hematocrit 28.8 (L) 35.0 - 12/25/2016 [facility] 47.0 % 2:10 PM [facility] MCV 84 78 - 100 12/25/2016 [facility] fl 2:10 PM SUBSTANCE ADDICTION COORDINATOR [facility] MCH 29.3 26.5 - 12/25/2016 [facility] 33.0 pg 2:10 PM [facility] MCHC 35.1 31.5 - 12/25/2016 [facility] 36.5 g/dL 2:10 PM [facility] RDW 14.4 10.0 - 12/25/2016 [facility] 15.0 % 2:10 PM [facility] Platelet Count 142 (L) 150 - 450 12/25/2016 [facility] 10e9/L 2:10 PM [facility] Specimen Anatomical Collection Method Collection Time Receive d Time (Source) Location / / Volume Laterality Blood specimen 12/25/2016 2:04 PM 017 2:08 (specimen) SUBSTANCE ADDICTION COORDINATOR PM SUBSTANCE ADDICTION COORDINATOR So Nunez MD LAB - BLOOD ORDERABLES Performing Organization Address City/[facility] Phon e Number [address] (ABNORMAL) Magnesium (12/25/2016 7:00 AM SUBSTANCE ADDICTION COORDINATOR) P athologist Signature Magnesium 1.5 (L) 1.6 - 2.3 12/25/2016 [facility] mg/dL 8:07 AM [facility] Specimen Anatomical Collection Method Collection Time Receive d Time (Source) Location / / Volume Laterality Blood specimen 12/25/2016 7:00 AM 017 7:06 (specimen) SUBSTANCE ADDICTION COORDINATOR AM SUBSTANCE ADDICTION COORDINATOR So Nunez MD LAB - BLOOD ORDERABLES Performing Organization Address City/[facility] Phon e Number [address] (ABNORMAL) Basic metabolic panel (12/25/2016 7:00 AM SUBSTANCE ADDICTION COORDINATOR) Patholo gist Method Time Signature Sodium 139 133 - 144 12/25/2016 [facility] mmol/L 8:13 AM [facility] Potassium 3.8 3.4 - 5.3 12/25/2016 [facility] mmol/L 8:13 AM [facility] Chloride 108 94 - 109 12/25/2016 [facility] mmol/L 8:13 AM [facility] Carbon Dioxide 21 20 - 32 12/25/2016 [facility] mmol/L 8:13 AM [facility] Anion Gap 10 3 - 14 12/25/2016 [facility] mmol/L 8:13 AM [facility] Glucose 133 (H) 70 - 99 12/25/2016 [facility] mg/dL 8:13 AM [facility] Urea Nitrogen 5 (L) 7 - 30 12/25/2016 [facility] mg/dL 8:13 AM [facility] Creatinine 0.51 (L) 0.52 - 12/25/2016 [facility] 1.04 mg/dL 8:13 AM [facility] GFR Estimate >90 >60 12/25/2016 [place] mL/min/1.7 8:[address] Comment: Non GFR Calc GFR Estimate If >90 >60 mL/min/1.7m2 12/25/2016 8:13 A M [facility] Black [facility] Comment: GFR Calc Calcium 7.6 (L) 8.5 - 10.1 mg/dL 12/25/2016 8:13 AM [facility] Specimen Anatomical Collection Method Collection Time Receive d Time (Source) Location / / Volume Laterality Blood specimen 12/25/2016 7:00 AM 017 7:07 (specimen) SUBSTANCE ADDICTION COORDINATOR AM SUBSTANCE ADDICTION COORDINATOR Petrona Barone DO LAB - BLOOD ORDERABLES Performing Organization Address City/[facility]/ZIP Code Phon e Number [place] [id number] [facility] Fibrinogen activity (12/25/2016 7:00 AM SUBSTANCE ADDICTION COORDINATOR) P athologist Signature Fibrinogen 398 200 - 420 12/25/2016 [facility] mg/dL 7:58 AM [facility] Specimen Anatomical Collection Method Collection Time Receive d Time (Source) Location / / Volume Laterality Blood specimen 12/25/2016 7:00 AM 017 7:07 (specimen) SUBSTANCE ADDICTION COORDINATOR AM SUBSTANCE ADDICTION COORDINATOR Petrona Barone DO LAB - BLOOD ORDERABLES Performing Organization Address City/[facility] Code Phon e Number [address] [address] [facility] Partial thromboplastin time (12/25/2016 7:00 AM SUBSTANCE ADDICTION COORDINATOR) P athologist Signature PTT 28 22 - 37 sec 12/25/2016 [facility] 7:58 AM [facility] Specimen Anatomical Collection Method Collection Time Receive d Time (Source) Location / / Volume Laterality Blood specimen 12/25/2016 7:00 AM 017 7:07 (specimen) SUBSTANCE ADDICTION COORDINATOR AM SUBSTANCE ADDICTION COORDINATOR Petrona Barone DO LAB - BLOOD ORDERABLES Performing Organization Address City/State/ZIP Code Phon e Number [address] INR (12/25/2016 7:00 AM SUBSTANCE ADDICTION COORDINATOR) P athologist Signature INR 1.06 0.86 - 1.14 12/25/2016 [facility] 7:58 AM [facility] Specimen Anatomical Collection Method Collection Time Receive d Time (Source) Location / / Volume Laterality Blood specimen 12/25/2016 7:00 AM 017 7:07 (specimen) SUBSTANCE ADDICTION COORDINATOR AM SUBSTANCE ADDICTION COORDINATOR Petrona Barone DO LAB - BLOOD ORDERABLES Performing Organization Address City/State/ZIP Code Phon e Number [place] [phone] [facility] (ABNORMAL) CBC with platelets (12/25/2016 7:00 AM SUBSTANCE ADDICTION COORDINATOR) [facility] gist Method Time Signature WBC 12.7 (H) 4.0 - 11.0 12/25/2016 [facility] 10e9/L 7:51 AM [facility] RBC Count 4.05 3.8 - 5.2 12/25/2016 [facility] 10e12/L 7:51 AM [facility] Hemoglobin 11.5 (L) 11.7 - 12/25/2016 [facility] 15.7 g/dL 7:51 AM [facility] Hematocrit 33.8 (L) 35.0 - 12/25/2016 [facility] 47.0 % 7:51 AM [facility] MCV 84 78 - 100 12/25/2016 [facility] fl 7:51 AM [facility] MCH 28.4 26.5 - 12/25/2016 [facility] 33.0 pg 7:51 AM [facility] MCHC 34.0 31.5 - 12/25/2016 [facility] 36.5 g/dL 7:51 AM [facility] RDW 14.0 10.0 - 12/25/2016 [facility] 15.0 % 7:51 AM [facility] Platelet Count 160 150 - 450 12/25/2016 [facility] 10e9/L 7:51 AM [facility] Specimen Anatomical Collection Method Collection Time Receive d Time (Source) Location / / Volume Laterality Blood specimen 12/25/2016 7:00 AM 017 7:07 (specimen) SUBSTANCE ADDICTION COORDINATOR AM SUBSTANCE ADDICTION COORDINATOR Petrona Barone DO LAB - BLOOD ORDERABLES Performing Organization Address City/[facility]/ZIP Code Phon e Number [address] [address] [facility] Partial thromboplastin time (12/25/2016 12:54 AM SUBSTANCE ADDICTION COORDINATOR) P athologist Signature PTT 28 22 - 37 sec 12/25/2016 [facility] 1:52 AM [facility] Specimen Anatomical Collection Method Collection Time Receive d Time (Source) Location / / Volume Laterality Blood specimen 12/25/2016 12:54 7 1:10 (specimen) AM SUBSTANCE ADDICTION COORDINATOR AM SUBSTANCE ADDICTION COORDINATOR Nora Torres MD LAB - BLOOD ORDERABLES Performing Organization Address City/State/ZIP Code Phon e Number [address] [address] [facility] INR (12/25/2016 12:54 AM SUBSTANCE ADDICTION COORDINATOR) P athologist Signature INR 1.11 0.86 - 1.14 12/25/2016 [facility] 1:52 AM [facility] Specimen Anatomical Collection Method Collection Time Receive d Time (Source) Location / / Volume Laterality Blood specimen 12/25/2016 12:54 7 1:10 (specimen) AM SUBSTANCE ADDICTION COORDINATOR AM SUBSTANCE ADDICTION COORDINATOR Nora Torres MD LAB - BLOOD ORDERABLES Performing Organization Address City/State/ZIP Code Phon e Number [address] [address] [facility] Fibrinogen activity (12/25/2016 12:54 AM SUBSTANCE ADDICTION COORDINATOR) P athologist Signature Fibrinogen 338 200 - 420 12/25/2016 [facility] mg/dL 1:52 AM [facility] Specimen Anatomical Collection Method Collection Time Receive d Time (Source) Location / / Volume Laterality Blood specimen 12/25/2016 12:54 7 1:10 (specimen) AM SUBSTANCE ADDICTION COORDINATOR AM SUBSTANCE ADDICTION COORDINATOR Nora Torres MD LAB - BLOOD ORDERABLES Performing Organization Address City/[facility]/ZIP Code Phon e Number [address] (ABNORMAL) CBC with platelets (12/25/2016 12:54 AM SUBSTANCE ADDICTION COORDINATOR) Analysis Performed At Patho logist Time Signature WBC 11.0 4.0 - 11.0 12/25/2016 [facility] 10e9/L 1:42 AM [facility] RBC Count 4.22 3.8 - 5.2 12/25/2016 [facility] 10e12/L 1:42 AM [facility] Hemoglobin 12.2 11.7 - 12/25/2016 [facility] 15.7 g/dL 1:42 AM [facility] Hematocrit 35.9 35.0 - 12/25/2016 [facility] 47.0 % 1:42 AM [facility] MCV 85 78 - 100 12/25/2016 [facility] fl 1:42 AM [facility] MCH 28.9 26.5 - 12/25/2016 [facility] 33.0 pg 1:42 AM [facility] MCHC 34.0 31.5 - 12/25/2016 [facility] 36.5 g/dL 1:42 AM [facility] RDW 13.6 10.0 - 12/25/2016 [facility] 15.0 % 1:42 AM [facility] Platelet Count 149 (L) 150 - 450 12/25/2016 [facility] 10e9/L 1:42 AM [facility] Specimen Anatomical Collection Method Collection Time Receive d Time (Source) Location / / Volume Laterality Blood specimen 12/25/2016 12:54 7 1:10 (specimen) AM SUBSTANCE ADDICTION COORDINATOR AM SUBSTANCE ADDICTION COORDINATOR Nora Torres MD LAB - BLOOD ORDERABLES Performing Organization Address City/[facility]/ZIP Code Phon e Number [place] [phone] [facility] (ABNORMAL) Basic metabolic panel (12/25/2016 12:54 AM SUBSTANCE ADDICTION COORDINATOR) Analysis Performed At Patho logist Time Signature Sodium 142 133 - 144 12/25/2016 [facility] mmol/L 1:49 AM [facility] Potassium 4.0 3.4 - 5.3 12/25/2016 [facility] mmol/L 1:49 AM [facility] Chloride 113 (H) 94 - 109 12/25/2016 [facility] mmol/L 1:49 AM [facility] Carbon Dioxide 22 20 - 32 12/25/2016 [facility] mmol/L 1:49 AM [facility] Anion Gap 7 3 - 14 12/25/2016 [facility] mmol/L 1:49 AM [facility] Glucose 147 (H) 70 - 99 12/25/2016 [facility] mg/dL 1:49 AM [facility] Urea Nitrogen 6 (L) 7 - 30 12/25/2016 [facility] mg/dL 1:49 AM [facility] Creatinine 0.54 0.52 - 12/25/2016 [facility] 1.04 mg/dL 1:49 AM [facility] GFR Estimate >90 >60 12/25/2016 [facility] mL/min/1.7 1:[address] Comment: Non GFR Calc GFR Estimate If >90 >60 mL/min/1.7m2 12/25/2016 1:49 A M [facility] Black [facility] Comment: GFR Calc Calcium 8.0 (L) 8.5 - 10.1 mg/dL 12/25/2016 1:49 AM SUBSTANCE ADDICTION COORDINATOR [facility] Specimen Anatomical Collection Method Collection Time Receive d Time (Source) Location / / Volume Laterality Blood specimen 12/25/2016 12:54 7 1:10 (specimen) AM SUBSTANCE ADDICTION COORDINATOR AM SUBSTANCE ADDICTION COORDINATOR Nora Torres MD LAB - BLOOD ORDERABLES Performing Organization Address City/State/ZIP Code Phon e Number [facility] [address] [place] [address] [facility] XR Abdomen Port 1 View (12/24/2016 11:10 PM SUBSTANCE ADDICTION COORDINATOR) Anatomical Region Laterality Modality Abdomen/Pelvis Computed Radiography Specimen (Source) Anatomical Location Collection Method / Collectio n Time Received Time / Laterality Volume Impressions 12/24/2016 11:52 PM SUBSTANCE ADDICTION COORDINATOR IMPRESSION: No radiopaque foreign objects are present in the visualized portion of the abdomen and pe lvis. CHEIKH COURTNEY MD Narrative 12/24/2016 11:52 PM SUBSTANCE ADDICTION COORDINATOR ABDOMEN SINGLE VIEW ??12/24/2016 11:10 PM HISTORY: [...] ORDER JEFFERY Blood component (12/24/2016 10:59 PM SUBSTANCE ADDICTION COORDINATOR) Component Value Ref Test Analysis Performed At [facility] [facility] Home-Account Range Method Time Signature Unit Number [id number] 12/24/2016 [facility] 11:06 PM [facility] Blood 5 cryoprecipitate 12/24/2016 [facility] Component units pooled 11:06 PM [place] [facility] 00 12/24/2016 [facility] Number 11:06 PM [facility] Status of Released to care 12/24/2016 [facility] F Unit unit 11:58 PM [facility] Blood [id number] 12/24/2016 [facility] Product Code 11:06 PM [facility] Unit Status [facility] Specimen Anatomical Collection Method Collection Time Receive d Time (Source) Location / / Volume Laterality 12/24/2016 10:59 12/24/2016 PM SUBSTANCE ADDICTION COORDINATOR 11:04 PM SUBSTANCE ADDICTION COORDINATOR Nora Leyva MD LABORATORY Performing Organization Address City/State/ZIP Code Phon e Number [facility] [address] [place] [address] [facility] [address] [place] [address] [address] [facility] (ABNORMAL) Arterial Panel (12/24/2016 10:45 PM SUBSTANCE ADDICTION COORDINATOR) [employer] Method Time Signature pH Arterial 7.35 7.35 - 12/24/2016 [facility] 7.45 pH 10:57 PM [facility] pCO2 Arterial 36 35 - 45 mm 12/24/2016 [facility] Hg 10:57 PM [facility] pO2 Arterial 207 (H) 80 - 105 12/24/2016 [facility] mm Hg 10:57 PM [facility] Bicarbonate 20 (L) 21 - 28 12/24/2016 [facility]ITY Arterial mmol/L 10:57 PM [facility] Base Deficit Art 4.9 mmol/L 12/24/2016 [facility] F 10:57 PM [facility] Comment: Reference range: -9.0 to 1.8 FIO2 50 12/24/2016 10:50 PM [facility] Sodium 135 133 - 144 12/24/2016 10:57 PM [facility] mmol/L [facility] Potassium 4.0 3.4 - 5.3 12/24/2016 10:57 PM [facility] mmol/L [facility] Hemoglobin 10.1 (L) 11.7 - 15.7 12/24/2016 10:57 PM [facility] [place] [place] g/dL [facility] Glucose 161 (H) 70 - 99 mg/dL 12/24/2016 10:57 PM [facility] Calcium Ionized 5.1 4.4 - 5.2 12/24/2016 10:57 PM [facility] [place] [place] Whole Blood mg/dL [facility] Specimen Anatomical Collection Method Collection Time Receive d Time (Source) Location / / Volume Laterality 12/24/2016 10:45 12/24/2016 PM SUBSTANCE ADDICTION COORDINATOR 10:49 PM SUBSTANCE ADDICTION COORDINATOR Nora Leyva MD LAB - BLOOD ORDERABLES Performing Organization Address City/State/ZIP Code Phon e Number [facility] [address] [place] [address] 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 [...] endometrium is irregular-shaped. No masses are identified. Correctional Officer sections are submitted. Summary of Sections: A1 [...] fallopian tube wi th a pin-point lumen. Correctional Officer sections are submitted in ca ssette B1. [...] fallopian tube wi th a pin-point lumen. Correctional Officer sections are submitted in ca ssette C1. [...] measuring 2.0 x 2.0 x 1.2 cm. Correctional Officer sections are submitted as follows: Summary of [...] The section submitted as possible thrombus at [facility] shows a remote retroplacental hematoma. CPT Codes: A: 74398-LX3, 22767-GML, 20497-EZZ B: 55744-PQ3 C: 66170-ZZ3 D: 07405-YI3 TESTING LAB LOCATION: [facility], [address] [place] [id number] COLLECTION SITE: Client: [facility] Location: [id number] (B) Specimen (Source) Anatomical Collection Method Collection Time Re ceived Time Location / / Volume Laterality Tissue specimen UTERUS AND CERVIX, 12/24/2016 10:13 (specimen) CS / Unknown PM SUBSTANCE ADDICTION COORDINATOR Tissue specimen STRUCTURE OF RIGHT 12/24/2016 10:14 (specimen) FALLOPIAN TUBE / PM SUBSTANCE ADDICTION COORDINATOR Unknown Tissue specimen STRUCTURE OF LEFT 12/24/2016 10:14 (specimen) FALLOPIAN TUBE / PM SUBSTANCE ADDICTION COORDINATOR Unknown So Nunez MD LAB - BEAKER AP Performing Organization Address City/[facility]/ZIP Code Phon e Number [facility] Partial thromboplastin time (12/24/2016 9:50 PM SUBSTANCE ADDICTION COORDINATOR) P athologist Signature PTT 33 22 - 37 sec 12/24/2016 [facility] 10:05 PM [facility] Specimen Anatomical Collection Method Collection Time Receive d Time (Source) Location / / Volume Laterality 12/24/2016 9:50 PM 7 9:52 SUBSTANCE ADDICTION COORDINATOR PM SUBSTANCE ADDICTION COORDINATOR Nora Leyva MD LAB - BLOOD ORDERABLES Performing Organization Address City/[facility]/ZIP Code Phon e Number [address] [address] [facility] (ABNORMAL) INR (12/24/2016 9:50 PM SUBSTANCE ADDICTION COORDINATOR) P athologist Signature INR 1.50 (H) 0.86 - 1.14 12/24/2016 [facility] 10:05 PM [facility] Specimen Anatomical Collection Method Collection Time Receive d Time (Source) Location / / Volume Laterality 12/24/2016 9:50 PM 7 9:52 SUBSTANCE ADDICTION COORDINATOR PM SUBSTANCE ADDICTION COORDINATOR Nora Leyva MD LAB - BLOOD ORDERABLES Performing Organization Address City/State/ZIP Code Phon e Number [address] [address] [facility] (ABNORMAL) Fibrinogen activity (12/24/2016 9:50 PM SUBSTANCE ADDICTION COORDINATOR) P athologist Signature Fibrinogen 189 (L) 200 - 420 12/24/2016 [facility] mg/dL 10:05 PM [facility] Specimen Anatomical Collection Method Collection Time Receive d Time (Source) Location / / Volume Laterality 12/24/2016 9:50 PM 7 9:52 SUBSTANCE ADDICTION COORDINATOR PM SUBSTANCE ADDICTION COORDINATOR Nora Leyva MD LAB - BLOOD ORDERABLES Performing Organization Address City/State/ZIP Code Phon e Number [address] [address] [facility] (ABNORMAL) CBC with platelets (12/24/2016 9:50 PM SUBSTANCE ADDICTION COORDINATOR) Patholo gist Method Time Signature WBC 10.3 4.0 - 11.0 12/24/2016 [facility] 10e9/L 9:58 PM [facility] RBC Count 2.61 (L) 3.8 - 5.2 12/24/2016 [facility] 10e12/L 9:58 PM [facility] Hemoglobin 7.5 (L) 11.7 - 12/24/2016 [facility] 15.7 g/dL 9:58 PM [facility] Hematocrit 23.1 (L) 35.0 - 12/24/2016 [facility] 47.0 % 9:58 PM [facility] MCV 89 78 - 100 12/24/2016 [facility] fl 9:58 PM [facility] MCH 28.7 26.5 - 12/24/2016 [facility] 33.0 pg 9:58 PM [facility] MCHC 32.5 31.5 - 12/24/2016 [facility] 36.5 g/dL 9:58 PM [facility] RDW 14.5 10.0 - 12/24/2016 [facility] 15.0 % 9:58 PM [facility] Platelet Count 105 (L) 150 - 450 12/24/2016 [facility] 10e9/L 9:58 PM [facility] Specimen Anatomical Collection Method Collection Time Receive d Time (Source) Location / / Volume Laterality 12/24/2016 9:50 PM 7 9:52 SUBSTANCE ADDICTION COORDINATOR PM SUBSTANCE ADDICTION COORDINATOR Nora Leyva MD LAB - BLOOD ORDERABLES Performing Organization Address City/State/ZIP Code Phon e Number [facility] [address] [place] [address] [facility] (ABNORMAL) Arterial Panel (12/24/2016 9:50 PM SUBSTANCE ADDICTION COORDINATOR) [facility] gist Method Time Signature pH Arterial 7.31 (L) 7.35 - 12/24/2016 [facility] 7.45 pH 9:58 PM [facility] pCO2 Arterial 38 35 - 45 12/24/2016 [facility] mm Hg 9:58 PM [facility] pO2 Arterial 197 (H) 80 - 105 12/24/2016 [facility] mm Hg 9:58 PM [facility] Bicarbonate 19 (L) 21 - 28 12/24/2016 [facility] Arterial mmol/L 9:58 PM [facility] Base Deficit Art 6.8 mmol/L 12/24/2016 [facility] O F 9:58 PM [facility] Comment: Reference range: -9.0 to 1.8 FIO2 50 12/24/2016 9:54 PM [facility] Sodium 137 133 - 144 12/24/2016 9:58 PM [facility] mmol/L [facility] Potassium 3.7 3.4 - 5.3 12/24/2016 9:58 PM [facility] mmol/L [facility] Hemoglobin 7.5 (L) 11.7 - 15.7 12/24/2016 9:58 PM [facility] [place] [place] g/dL [facility] Glucose 155 (H) 70 - 99 mg/dL 12/24/2016 9:58 PM [facility] Calcium Ionized 4.6 4.4 - 5.2 12/24/2016 9:58 PM [facility] [place] Whole Blood mg/dL [facility] Specimen Anatomical Collection Method Collection Time Receive d Time (Source) Location / / Volume Laterality 12/24/2016 9:50 PM 7 9:52 SUBSTANCE ADDICTION COORDINATOR PM SUBSTANCE ADDICTION COORDINATOR Nora Leyva MD LAB - BLOOD ORDERABLES Performing Organization Address City/[facility]/ZIP Code Phon e Number [facility] [address] [place] [address] [facility] (ABNORMAL) Arterial Panel (12/24/2016 9:20 PM SUBSTANCE ADDICTION COORDINATOR) [facility] Method Time Signature pH Arterial 7.31 (L) 7.35 - 12/24/2016 [facility] 7.45 pH 9:28 PM [facility] pCO2 Arterial 40 35 - 45 12/24/2016 [facility] mm Hg 9:28 PM [facility] pO2 Arterial 191 (H) 80 - 105 12/24/2016 [facility] mm Hg 9:28 PM [facility] Bicarbonate 20 (L) 21 - 28 12/24/2016 [facility] Arterial mmol/L 9:28 PM [facility] Base Deficit Art 5.8 mmol/L 12/24/2016 [facility] O F 9:28 PM [facility] Comment: Reference range: -9.0 to 1.8 FIO2 50% 12/24/2016 9:26 PM [facility] Sodium 136 133 - 144 12/24/2016 9:28 PM [facility] mmol/L [facility] Potassium 3.9 3.4 - 5.3 12/24/2016 9:28 PM [facility] mmol/L [facility] Hemoglobin 8.7 (L) 11.7 - 15.7 12/24/2016 9:28 PM [facility] [place] g/dL [facility] Glucose 165 (H) 70 - 99 mg/dL 12/24/2016 9:28 PM [facility] Calcium Ionized 4.4 4.4 - 5.2 12/24/2016 9:28 PM [facility] [place] Whole Blood mg/dL [facility] Specimen Anatomical Collection Method Collection Time Receive d Time (Source) Location / / Volume Laterality 12/24/2016 9:20 PM 7 9:25 SUBSTANCE ADDICTION COORDINATOR PM SUBSTANCE ADDICTION COORDINATOR Nora Leyva MD LAB - BLOOD ORDERABLES Performing Organization Address City/[facility]/ZIP Code Phon e Number [facility] [address] [place] [address] [facility] Blood component (12/24/2016 8:45 PM SUBSTANCE ADDICTION COORDINATOR) Patholo gist Method Time Signature Unit Number [id number] 12/24/2016 [facility] 7 10:07 PM SUBSTANCE ADDICTION COORDINATOR [facility] Blood PlateletPher 12/24/2016 [facility] Component esis,LeukoRe 10:07 PM SUBSTANCE ADDICTION COORDINATOR [place] [facility] Type [facility] ([facility] Division 00 12/24/2016 [facility] Number 10:07 PM SUBSTANCE ADDICTION COORDINATOR [facility] Status of Released to 12/24/2016 [facility] Unit care unit 11:58 PM SUBSTANCE ADDICTION COORDINATOR [facility] Blood Product [id number] 12/24/2016 [facility] Code 10:07 PM SUBSTANCE ADDICTION COORDINATOR [facility] Unit Status ISS [facility] Specimen Anatomical Collection Method Collection Time Receive d Time (Source) Location / / Volume Laterality 12/24/2016 8:45 PM 7 8:50 SUBSTANCE ADDICTION COORDINATOR PM SUBSTANCE ADDICTION COORDINATOR Nora Leyva MD LABORATORY Performing Organization Address City/[facility] Code Phon e Number [facility] [address] [place], [place] [phone] [place] [phone] [place] [address] Blood component (12/24/2016 8:45 PM SUBSTANCE ADDICTION COORDINATOR) Patholo gist Method Time Signature Unit Number [id number] 12/24/2016 [facility] 2 8:52 PM SUBSTANCE ADDICTION COORDINATOR [facility] Blood PlateletPher 12/24/2016 [facility] Component esis,LeukoRe 8:52 PM SUBSTANCE ADDICTION COORDINATOR [place] [facility] Division 00 12/24/2016 [facility] Number 8:52 PM SUBSTANCE ADDICTION COORDINATOR [facility] Status of Released to 12/24/2016 [facility] Unit care unit 11:58 PM SUBSTANCE ADDICTION COORDINATOR [facility] Blood Product [id number] 12/24/2016 [facility] Code 8:52 PM SUBSTANCE ADDICTION COORDINATOR [facility] Unit Status [facility] Specimen Anatomical Collection Method Collection Time Receive d Time (Source) Location / / Volume Laterality 12/24/2016 8:45 PM 7 8:50 SUBSTANCE ADDICTION COORDINATOR PM SUBSTANCE ADDICTION COORDINATOR Nora Leyva MD LABORATORY Performing Organization Address City/[facility]/ZIP Code Phon e Number [facility] [address] [place] [address] [address] [facility] Platelets prepare order unit (12/24/2016 8:45 PM SUBSTANCE ADDICTION COORDINATOR) [facility] gist Method Time Signature Blood PLT Pheresis 12/24/2016 [facility] 8:50 PM SUBSTANCE ADDICTION COORDINATOR [facility] Units Ordered 2 12/24/2016 UN[facility]ITY 10:07 PM [facility] Specimen Anatomical Collection Method Collection Time Receive d Time (Source) Location / / Volume Laterality 12/24/2016 8:45 PM 7 8:50 SUBSTANCE ADDICTION COORDINATOR PM SUBSTANCE ADDICTION COORDINATOR Nora Leyva MD BLOOD BANK PRODUCT ORDERABLE S Performing Organization Address City/[facility]/ZIP Code Phon e Number [address] [address] [facility] Partial thromboplastin time (12/24/2016 8:44 PM SUBSTANCE ADDICTION COORDINATOR) athologist Signature PTT 30 22 - 37 sec 12/24/2016 [facility] 9:05 PM [facility] Specimen Anatomical Collection Method Collection Time Receive d Time (Source) Location / / Volume Laterality 12/24/2016 8:44 PM 7 8:51 SUBSTANCE ADDICTION COORDINATOR PM SUBSTANCE ADDICTION COORDINATOR Nora Leyva MD LAB - BLOOD ORDERABLES Performing Organization Address City/State/ZIP Code Phon e Number [address] [address] [facility] (ABNORMAL) INR (12/24/2016 8:44 PM SUBSTANCE ADDICTION COORDINATOR) athologist Signature INR 1.16 (H) 0.86 - 1.14 12/24/2016 [facility] 9:05 PM [facility] Specimen Anatomical Collection Method Collection Time Receive d Time (Source) Location / / Volume Laterality 12/24/2016 8:44 PM 7 8:51 SUBSTANCE ADDICTION COORDINATOR PM SUBSTANCE ADDICTION COORDINATOR Nora Leyva MD LAB - BLOOD ORDERABLES Performing Organization Address City/State/ZIP Code Phon e Number [address] [address] [facility] Fibrinogen activity (12/24/2016 8:44 PM SUBSTANCE ADDICTION COORDINATOR) P athologist Signature Fibrinogen 328 200 - 420 12/24/2016 [facility] mg/dL 9:05 PM [facility] Specimen Anatomical Collection Method Collection Time Receive d Time (Source) Location / / Volume Laterality 12/24/2016 8:44 PM 7 8:51 SUBSTANCE ADDICTION COORDINATOR PM SUBSTANCE ADDICTION COORDINATOR Nora Leyva MD LAB - BLOOD ORDERABLES Performing Organization Address City/[facility]/ZIP Code Phon e Number [place] [phone] [place] [address] (ABNORMAL) CBC with platelets (12/24/2016 8:44 PM SUBSTANCE ADDICTION COORDINATOR) [facility] gist Method Time Signature WBC 5.8 4.0 - 11.0 12/24/2016 [facility] 10e9/L 9:16 PM [facility] RBC Count 2.70 (L) 3.8 - 5.2 12/24/2016 [facility] 10e12/L 9:16 PM [facility] Hemoglobin 7.7 (L) 11.7 - 12/24/2016 [facility] 15.7 g/dL 9:16 PM [facility] Hematocrit 24.0 (L) 35.0 - 12/24/2016 [facility] 47.0 % 9:16 PM [facility] MCV 89 78 - 100 12/24/2016 [facility] fl 9:16 PM [facility] MCH 28.5 26.5 - 12/24/2016 [facility] 33.0 pg 9:16 PM [facility] MCHC 32.1 31.5 - 12/24/2016 [facility] 36.5 g/dL 9:16 PM [facility] RDW 16.4 (H) 10.0 - 12/24/2016 [facility] 15.0 % 9:16 PM [facility] Platelet Count 156 150 - 450 12/24/2016 [facility] 10e9/L 9:16 PM [facility] Specimen Anatomical Collection Method Collection Time Receive d Time (Source) Location / / Volume Laterality 12/24/2016 8:44 PM 7 8:51 SUBSTANCE ADDICTION COORDINATOR PM SUBSTANCE ADDICTION COORDINATOR Nora Leyva MD LAB - BLOOD ORDERABLES Performing Organization Address City/[facility] Code Phon e Number [address] [address] [facility] (ABNORMAL) Arterial Panel (12/24/2016 8:44 PM SUBSTANCE ADDICTION COORDINATOR) [facility] Method Time Signature pH Arterial 7.29 (L) 7.35 - 12/24/2016 [facility] 7.45 pH 8:56 PM [facility] pCO2 Arterial 41 35 - 45 12/24/2016 [facility] mm Hg 8:56 PM [facility] pO2 Arterial 355 (H) 80 - 105 12/24/2016 [facility] mm Hg 8:56 PM [facility] Bicarbonate 20 (L) 21 - 28 12/24/2016 [facility] Arterial mmol/L 8:56 PM [facility] Base Deficit Art 6.1 mmol/L 12/24/2016 [facility] O F 8:56 PM [facility] Comment: Reference range: -9.0 to 1.8 FIO2 100% 12/24/2016 8:53 PM [facility] Sodium 137 133 - 144 12/24/2016 8:56 PM [facility] mmol/L [facility] Potassium 3.6 3.4 - 5.3 12/24/2016 8:56 PM [facility] mmol/L [facility] Hemoglobin 7.6 (L) 11.7 - 15.7 12/24/2016 8:56 PM [facility] [place] g/dL [facility] Glucose 160 (H) 70 - 99 mg/dL 12/24/2016 8:56 PM [facility] Calcium Ionized 4.1 (L) 4.4 - 5.2 12/24/2016 8:56 PM [facility] Whole Blood mg/dL [facility] Specimen Anatomical Collection Method Collection Time Receive d Time (Source) Location / / Volume Laterality 12/24/2016 8:44 PM 7 8:51 SUBSTANCE ADDICTION COORDINATOR PM SUBSTANCE ADDICTION COORDINATOR Nora Leyva MD LAB - BLOOD ORDERABLES Performing Organization Address City/State/ZIP Code Phon e Number [facility] [address] [place] [address] [facility] (ABNORMAL) Arterial Panel (12/24/2016 8:25 PM SUBSTANCE ADDICTION COORDINATOR) [facility] Method Time Signature pH Arterial 7.30 (L) 7.35 - 12/24/2016 [facility] 7.45 pH 8:33 PM [facility] pCO2 Arterial 40 35 - 45 12/24/2016 [facility] mm Hg 8:33 PM [facility] pO2 Arterial 195 (H) 80 - 105 12/24/2016 [facility] mm Hg 8:33 PM [facility] Bicarbonate 19 (L) 21 - 28 12/24/2016 UNIVERSITY Arterial mmol/L 8:33 PM [facility] Base Deficit Art 6.6 mmol/L 12/24/2016 [facility] O F 8:33 PM [facility] Comment: Reference range: -9.0 to 1.8 FIO2 100% 12/24/2016 8:29 PM [facility] Sodium 135 133 - 144 12/24/2016 8:33 PM [facility] mmol/L [facility] Potassium 4.1 3.4 - 5.3 12/24/2016 8:33 PM [facility] mmol/L [facility] Hemoglobin 8.0 (L) 11.7 - 15.7 12/24/2016 8:33 PM [facility] [place] g/dL [facility] Glucose 136 (H) 70 - 99 mg/dL 12/24/2016 8:33 PM [facility] Calcium Ionized 4.3 (L) 4.4 - 5.2 12/24/2016 8:33 PM [facility] Whole Blood mg/dL [facility] Specimen Anatomical Collection Method Collection Time Receive d Time (Source) Location / / Volume Laterality 12/24/2016 8:25 PM 7 8:29 SUBSTANCE ADDICTION COORDINATOR PM SUBSTANCE ADDICTION COORDINATOR Nora Leyva MD LAB - BLOOD ORDERABLES Performing Organization Address City/State/ZIP Code Phon e Number [facility] [address] [place] [address] [facility] Blood component (12/24/2016 7:25 PM SUBSTANCE ADDICTION COORDINATOR) [facility] Method Time Signature Unit Number [id number] 12/24/2016 [facility] 10:10 PM [facility] Blood Plasma, 12/24/2016 [facility] Component Thawed 10:10 PM [facility] 00 12/24/2016 [facility] Number 10:10 PM SUBSTANCE ADDICTION COORDINATOR [facility] Status of No longer 12/24/2016 [facility] Unit available 11:49 PM SUBSTANCE ADDICTION COORDINATOR [place] [facility] 12/24/2016 [facility] Blood Product [id number] 12/24/2016 [facility] Code 10:10 PM SUBSTANCE ADDICTION COORDINATOR [facility] Unit Status RET [facility] Specimen Anatomical Collection Method Collection Time Receive d Time (Source) Location / / Volume Laterality 12/24/2016 7:25 PM 7 7:30 SUBSTANCE ADDICTION COORDINATOR PM SUBSTANCE ADDICTION COORDINATOR Nora Leyva MD LAB - BLOOD BANK PRODUCT ORD ER Performing Organization Address City/[facility]/ZIP Code Phon e Number [address] [address] [facility] Blood component (12/24/2016 7:25 PM SUBSTANCE ADDICTION COORDINATOR) [facility] Home-Account Method Time Signature Unit Number [id number] 12/24/2016 [facility] 10:10 PM SUBSTANCE ADDICTION COORDINATOR [facility] Blood Plasma, 12/24/2016 [facility] Component Thawed 10:10 PM SUBSTANCE ADDICTION COORDINATOR [facility] Division 00 12/24/2016 [facility] Number 10:10 PM SUBSTANCE ADDICTION COORDINATOR [facility] Status of No longer 12/24/2016 [facility] Unit available 11:48 PM SUBSTANCE ADDICTION COORDINATOR [facility] 12/24/2016 [facility] BANK Blood Product [id number] 12/24/2016 [facility] Code 10:10 PM SUBSTANCE ADDICTION COORDINATOR [facility] Unit Status RET [facility] Specimen Anatomical Collection Method Collection Time Receive d Time (Source) Location / / Volume Laterality 12/24/2016 7:25 PM 7 7:30 SUBSTANCE ADDICTION COORDINATOR PM SUBSTANCE ADDICTION COORDINATOR Nora Leyva MD LAB - BLOOD BANK PRODUCT ORD ER Performing Organization Address City/State/ZIP Code Phon e Number [facility] [address] [place] [id number] [facility] Blood component (12/24/2016 7:25 PM SUBSTANCE ADDICTION COORDINATOR) [facility] Home-Account Method Time Signature Unit Number [id number] 12/24/2016 [facility] 9 9:03 PM SUBSTANCE ADDICTION COORDINATOR [facility] Blood Plasma, 12/24/2016 [facility] Component Thawed 9:03 PM SUBSTANCE ADDICTION COORDINATOR [facility] Division 00 12/24/2016 [facility] Number 9:03 PM SUBSTANCE ADDICTION COORDINATOR [facility] Status of Released to 12/24/2016 [facility] Unit care unit 11:58 PM SUBSTANCE ADDICTION COORDINATOR [facility] Blood Product [id number] 12/24/2016 [facility] Code 9:03 PM SUBSTANCE ADDICTION COORDINATOR [facility] Unit Status [facility] Specimen Anatomical Collection Method Collection Time Receive d Time (Source) Location / / Volume Laterality 12/24/2016 7:25 PM 7 7:30 SUBSTANCE ADDICTION COORDINATOR PM SUBSTANCE ADDICTION COORDINATOR Nora Leyva MD LABORATORY Performing Organization Address City/State/ZIP Code Phon e Number [facility] [address] [place] [address] [facility] [address] [place] [address] [facility] Blood component (12/24/2016 7:25 PM SUBSTANCE ADDICTION COORDINATOR) [employer] Method Time Signature Unit Number [id number] 12/24/2016 [facility] OF 7 9:03 PM SUBSTANCE ADDICTION COORDINATOR [facility] Blood Plasma, 12/24/2016 [facility]ITY OF Component Thawed 9:03 PM SUBSTANCE ADDICTION COORDINATOR [facility] Division 00 12/24/2016 [facility] OF Number 9:03 PM SUBSTANCE ADDICTION COORDINATOR [facility] Status of Released to 12/24/2016 [facility] OF Unit care unit 11:58 PM SUBSTANCE ADDICTION COORDINATOR [facility] Blood Product [id number] 12/24/2016 [facility] OF Code 9:03 PM [facility] Unit Status [facility] Specimen Anatomical Collection Method Collection Time Receive d Time (Source) Location / / Volume Laterality 12/24/2016 7:25 PM 7 7:30 SUBSTANCE ADDICTION COORDINATOR PM SUBSTANCE ADDICTION COORDINATOR Nora Leyva MD LABORATORY Performing Organization Address City/State/ZIP Code Phon e Number [facility] [address] [place] [address] [facility] [address] [place] [address] [facility] Blood component (12/24/2016 7:25 PM SUBSTANCE ADDICTION COORDINATOR) [employer] Method Time Signature Unit Number [id number] 12/24/2016 [facility] OF 8:18 PM [facility] B[facility] Blood Apheresis 12/24/2016 [facility] OF Component Plasma Thawed 8:18 PM SUBSTANCE ADDICTION COORDINATOR [facility] Division 00 12/24/2016 [facility] OF Number 8:18 PM SUBSTANCE ADDICTION COORDINATOR [facility] Status of Released to 12/24/2016 [facility] OF Unit care unit 11:58 PM SUBSTANCE ADDICTION COORDINATOR [facility] Blood Product [id number] 12/24/2016 [facility] Code 8:18 PM SUBSTANCE ADDICTION COORDINATOR [facility] Unit Status [facility] Specimen Anatomical Collection Method Collection Time Receive d Time (Source) Location / / Volume Laterality 12/24/2016 7:25 PM 7 7:30 SUBSTANCE ADDICTION COORDINATOR PM SUBSTANCE ADDICTION COORDINATOR Nora Leyva MD LABORATORY Performing Organization Address City/State/ZIP Code Phon e Number [facility] [address] [place] [address] [place] [address] [place] [address] [facility] Blood component (12/24/2016 7:25 PM SUBSTANCE ADDICTION COORDINATOR) [facility] Home-Account Method Time Signature Unit Number [id number] 12/24/2016 [facility] OF 5 8:18 PM SUBSTANCE ADDICTION COORDINATOR [facility] B[facility] Blood Plasma, 12/24/2016 [facility] OF Component Thawed 8:18 PM SUBSTANCE ADDICTION COORDINATOR [facility] Division 00 12/24/2016 [facility] OF Number 8:18 PM SUBSTANCE ADDICTION COORDINATOR [facility] Status of Released to 12/24/2016 [facility] OF Unit care unit 11:58 PM SUBSTANCE ADDICTION COORDINATOR [facility] Blood Product [id number] 12/24/2016 [facility] OF Code 8:18 PM SUBSTANCE ADDICTION COORDINATOR [facility] Unit Status [facility] Specimen Anatomical Collection Method Collection Time Receive d Time (Source) Location / / Volume Laterality 12/24/2016 7:25 PM 7 7:30 SUBSTANCE ADDICTION COORDINATOR PM SUBSTANCE ADDICTION COORDINATOR Nora Leyva MD LABORATORY Performing Organization Address City/State/ZIP Code Phon e Number [facility] [address] [place] [address] [place] [address] [place] [address] [facility]ST [facility] Blood component (12/24/2016 7:25 PM SUBSTANCE ADDICTION COORDINATOR) [facility] Home-Account Method Time Signature Unit Number [id number] 12/24/2016 [facility] OF 3 8:18 PM SUBSTANCE ADDICTION COORDINATOR [facility] Blood Plasma, 12/24/2016 [facility] OF Component Thawed 8:18 PM SUBSTANCE ADDICTION COORDINATOR [facility] BANK Division 00 12/24/2016 [facility] OF Number 8:18 PM SUBSTANCE ADDICTION COORDINATOR [facility] Status of Released to 12/24/2016 [facility] OF Unit care unit 11:58 PM SUBSTANCE ADDICTION COORDINATOR [facility] Blood Product [id number] 12/24/2016 [facility] OF Code 8:18 PM SUBSTANCE ADDICTION COORDINATOR [facility] Unit Status [facility] Specimen Anatomical Collection Method Collection Time Receive d Time (Source) Location / / Volume Laterality 12/24/2016 7:25 PM 7 7:30 SUBSTANCE ADDICTION COORDINATOR PM SUBSTANCE ADDICTION COORDINATOR Nora Leyva MD LABORATORY Performing Organization Address City/State/ZIP Code Phon e Number [facility] [address] [place] [address] [address] [facility] Blood component (12/24/2016 7:25 PM SUBSTANCE ADDICTION COORDINATOR) Patholo gist Method Time Signature Unit Number [id number] 12/24/2016 [facility] OF 9 8:18 PM SUBSTANCE ADDICTION COORDINATOR [facility] Blood Plasma, 12/24/2016 [facility] OF Component Thawed 8:18 PM SUBSTANCE ADDICTION COORDINATOR [facility] Division 00 12/24/2016 [facility] OF Number 8:18 PM SUBSTANCE ADDICTION COORDINATOR [facility] Status of Released to 12/24/2016 [facility] OF Unit care unit 11:58 PM SUBSTANCE ADDICTION COORDINATOR [facility] Blood Product [id number] 12/24/2016 [facility] OF Code 8:18 PM SUBSTANCE ADDICTION COORDINATOR [facility] Unit Status [facility] Specimen Anatomical Collection Method Collection Time Receive d Time (Source) Location / / Volume Laterality 12/24/2016 7:25 PM 7 7:30 SUBSTANCE ADDICTION COORDINATOR PM SUBSTANCE ADDICTION COORDINATOR Nora Leyva MD LABORATORY Performing Organization Address City/State/ZIP Code Phon e Number [facility] [address] [place] [address] [address] [facility] Plasma prepare order unit (12/24/2016 7:25 PM SUBSTANCE ADDICTION COORDINATOR) P athologist Signature Blood Plasma 12/24/2016 [facility]ITY OF Component Type 7:31 PM SUBSTANCE ADDICTION COORDINATOR [facility] Units Ordered 8 12/24/2016 [facility] OF 10:10 PM [facility] Specimen Anatomical Collection Method Collection Time Receive d Time (Source) Location / / Volume Laterality 12/24/2016 7:25 PM 7 7:30 SUBSTANCE ADDICTION COORDINATOR PM SUBSTANCE ADDICTION COORDINATOR Nora Leyva MD BLOOD BANK PRODUCT ORDERABLE S Performing Organization Address City/State/ZIP Code Phon e Number [facility] [address] [place] [address] [facility] (ABNORMAL) CBC with platelets differential (12/24/2016 7:06 PM SUBSTANCE ADDICTION COORDINATOR) [facility] gist Method Time Signature WBC 10.4 4.0 - 12/24/2016 [facility] OF 11.0 7:11 PM [facility] 10e9/L [facility] RBC Count 2.99 (L) 3.8 - 5.2 12/24/2016 [facility] OF 10e12/L 7:11 PM [facility] Hemoglobin 9.0 (L) 11.7 - 12/24/2016 [facility] OF 15.7 g/dL 7:11 PM [facility] Hematocrit 28.5 (L) 35.0 - 12/24/2016 [facility] OF 47.0 % 7:11 PM [facility] MCV 95 78 - 100 12/24/2016 [facility] OF fl 7:11 PM [facility] MCH 30.1 26.5 - 12/24/2016 [facility] OF 33.0 pg 7:11 PM [facility] MCHC 31.6 31.5 - 12/24/2016 [facility] OF 36.5 g/dL 7:11 PM [facility] RDW 16.1 (H) 10.0 - 12/24/2016 [facility] OF 15.0 % 7:11 PM [facility] Platelet Count 256 150 - 450 12/24/2016 [facility] OF 10e9/L 7:11 PM [facility] Diff Method Automated 12/24/2016 [facility] OF Method 7:11 PM [facility] % Neutrophils 69.4 % 12/24/2016 [facility] OF 7:11 PM [facility] % Lymphocytes 21.5 % 12/24/2016 [facility] OF 7:11 PM [facility] % Monocytes 5.7 % 12/24/2016 [facility] OF 7:11 PM [facility] % Eosinophils 2.9 % 12/24/2016 [facility] OF 7:11 PM [facility] % Basophils 0.1 % 12/24/2016 [facility] OF 7:11 PM [facility] % Immature 0.4 % 12/24/2016 [facility] OF Granulocytes 7:11 PM [facility] Nucleated RBCs 0 0 /100 12/24/2016 [facility] OF 7:11 PM [facility] Absolute 7.2 1.6 - 8.3 12/24/2016 [facility] OF Neutrophil 10e9/L 7:11 PM [facility] Absolute 2.2 0.8 - 5.3 12/24/2016 [facility] OF Lymphocytes 10e9/L 7:11 PM [facility] Absolute 0.6 0.0 - 1.3 12/24/2016 [facility] OF Monocytes 10e9/L 7:11 PM [facility] Absolute 0.3 0.0 - 0.7 12/24/2016 [facility] OF Eosinophils 10e9/L 7:11 PM [facility] Absolute 0.0 0.0 - 0.2 12/24/2016 [facility] OF Basophils 10e9/L 7:11 PM [facility] Abs Immature 0.0 0 - 0.4 12/24/2016 [facility] OF Granulocytes 10e9/L 7:11 PM [facility] Absolute 0.0 12/24/2016 [facility] OF Nucleated RBC 7:11 PM [facility] Specimen Anatomical Collection Method Collection Time Receive d Time (Source) Location / / Volume Laterality Blood specimen 12/24/2016 7:06 PM 017 7:07 (specimen) SUBSTANCE ADDICTION COORDINATOR PM SUBSTANCE ADDICTION COORDINATOR Kyala Davidson MD LAB - BLOOD ORDERABLES Performing Organization Address City/State/ZIP Code Phon e Number [facility] [address] [place] [address] [facility] Urine Culture Aerobic Bacterial (12/24/2016 7:50 AM SUBSTANCE ADDICTION COORDINATOR) Component Value Ref Test Analysis Performed At [facility] Range Method Time Signature Specimen Midstream Urine INFECTIOUS Description DISEASE DIAGNOSTIC LABORATORY Special Specimen received 12/24/2016 UNIVERSITY [facility] in preservative 11:03 AM [facility] Culture Micro <10,000 colonies/mL 12/25/2016 INFEC TIOUS mixed urogenital evelina 7:35 AM SUBSTANCE ADDICTION COORDINATOR DISEA SE Susceptibility testing not routinely done DIAGNOSTIC LABORATORY Specimen (Source) Anatomical Collection Method Collection Time Re ceived Time Location / / Volume Laterality Examination of 12/24/2016 7:50 12/24/2016 8:46 midstream urine AM SUBSTANCE ADDICTION COORDINATOR AM SUBSTANCE ADDICTION COORDINATOR specimen (procedure) Nora Leyva MD LAB - MICRO GENERAL ORDERABL ES Performing Organization Address City/State/ZIP Code Phon e Number INFECTIOUS DISEASES [address] [place] [address] DIAGNOSTIC LABORATORY, [facility] INFECTIOUS DISEASE [address] [place] [address], [facility] DIAGNOSTIC LABORATORY [address] [address], [facility] (ABNORMAL) UA with Microscopic reflex to Culture (12/24/2016 7:50 AM SUBSTANCE ADDICTION COORDINATOR) [facility] gist Method Time Signature Color Urine Yellow 12/24/2016 UN[facility]ERSITY OF 8:35 AM [facility] Appearance Urine Clear 12/24/2016 UN[facility]ERSITY O F 8:35 AM [facility] Glucose Urine Negative NEG^Negat 12/24/2016 UN[facility]ITY OF paula mg/dL 8:35 AM [facility] Bilirubin Urine Negative NEG^Negat 12/24/2016 UN[facility]ITY OF paula 8:35 AM [facility] Ketones Urine Negative NEG^Negat 12/24/2016 UN[facility]ITY OF [place]ula mg/dL 8:35 AM [facility] Specific [place] 1.013 1.003 - 12/24/2016 UNIVERSITY O F Urine 1.035 8:35 AM [facility] Blood Urine Moderate (A) NEG^Negat 12/24/2016 UN[facility]ITY OF paula 8:35 AM [facility] pH Urine 6.5 5.0 - 7.0 12/24/2016 [facility]ITY OF pH 8:35 AM [facility] Protein Albumin Negative NEG^Negat 12/24/2016 [facility]ITY OF Urine paula mg/dL 8:35 AM [facility] Urobilinogen Normal 0.0 - 2.0 12/24/2016 [facility] OF mg/dL mg/dL 8:35 AM [facility] Nitrite Urine Negative NEG^Negat 12/24/2016 UN[facility]ITY OF paula 8:35 AM [facility] Leukocyte Large (A) NEG^Negat 12/24/2016 [facility] OF Esterase Urine paula 8:35 AM [facility] Source Midstream 12/24/2016 [facility]ITY OF Urine 8:06 AM [facility] WBC Urine 24 (H) 0 - 2 12/24/2016 UN[facility]ERSITY OF /HPF 8:37 AM [facility] RBC Urine 34 (H) 0 - 2 12/24/2016 UN[facility]ERSITY OF /HPF 8:37 AM [facility] Bacteria Urine Few (A) NEG^Negat 12/24/2016 UN[facility]ERSITY OF paula /HPF 8:37 AM [facility] Squamous 2 (H) 0 - 1 12/24/2016 UN[facility]ITY OF Epithelial /HPF /HPF 8:37 AM [facility] Transitional Epi <1 0 - 1 12/24/2016 UNIVERSITY O F /HPF 8:37 AM [facility] Specimen (Source) Anatomical Collection Method Collection Time Re ceived Time Location / / Volume Laterality Examination of URINE SPECIMEN 12/24/2016 7:50 12/25/19 17 8:05 midstream urine OBTAINED BY CLEAN AM SUBSTANCE ADDICTION COORDINATOR AM SUBSTANCE ADDICTION COORDINATOR specimen CATCH PROCEDURE / (procedure) Unknown Petrona Barone DO LAB - URINE ORDERABLES Performing Organization Address City/State/ZIP Code Phon e Number [facility] [address] [place], [place] [id number] [place] [address] (ABNORMAL) Wet prep (12/23/2016 11:53 PM SUBSTANCE ADDICTION COORDINATOR) Component Value Ref Test Analysis Performed At [facility] Range Method Time Signature Specimen Vagina [facility] Wet Prep No motile 12/24/2016 UN[facility]ITY OF Trichomonas 12:21 AM [facility] seen [facility] Wet Prep Rare 12/24/2016 UN[facility]ITY OF Yeast seen 12:21 AM [facility] (A) [facility] Wet Prep Moderate 12/24/2016 UN[facility]ITY OF PMNs seen 12:21 AM [facility] Wet Prep No clue cells 12/24/2016 UN[facility]ITY OF seen 12:21 AM [facility] Specimen Anatomical Collection Method Collection Time Receive d Time (Source) Location / / Volume Laterality Specimen from 12/23/2016 11:53 12/24/2016 vagina PM SUBSTANCE ADDICTION COORDINATOR 12:10 AM SUBSTANCE ADDICTION COORDINATOR (specimen) Petrona Barone DO LAB - MICRO GENERAL ORDERABL ES Performing Organization Address City/State/ZIP Code Phon e Number [address] [address] [facility] Maternal BPP Single (12/23/2016 8:37 AM SUBSTANCE ADDICTION COORDINATOR) Anatomical Region Laterality Modality Ultrasound Specimen (Source) Anatomical Collection Method Collection Time Re ceived Time Location / / Volume Laterality 12/23/2016 8:05 AM SUBSTANCE ADDICTION COORDINATOR Impressions 12/23/2016 11:10 AM SUBSTANCE ADDICTION COORDINATOR IMPRESSION 1) Intrauterine at 29 3/7 week s gestational age. 2) The BPP is reassuring. 3) The amniotic fluid volume low consist ent with known PPROM. 4) There is a complete posterior/lateral placenta previa. Narrative 12/23/2016 11:10 AM SUBSTANCE ADDICTION COORDINATOR BPP Pat. Name: DEANN IKNG Study Date: 8:05am Pat. NO: [id number] Referring ??: CHRIST LOZADA Site: [facility] Compliance Investigator: Jay Lu : 1980 Age: 36 INDICATION Premature Rupture of Membranes ( PPROM) Complete previa. METHOD [facility] ANTEPARTUM inpatient exam, Transabd ominal [...] Note Petrona Barone, - 12/23/2016 BPP Pat. Name:Clovis KINGjames Date:12/23 8:05am Pat. NO: [id number] :CHRIST BHAT ON [facility]Yesenia Sen RDMS :1980Age:36 INDICATION Premature Rupture of Membranes ( PPROM) Complete previa. METHOD [facility] ANTEPARTUM inpatient exam, Transabd ominal [...] complete posterior/lateral placenta previa. Lashawn Patel MD [facility] ORDERABLES Blood component (12/23/2016 6:54 AM SUBSTANCE ADDICTION COORDINATOR) [facility] Method Time Signature Unit Number [id number] 12/24/2016 [facility]ERSITY OF 9:49 PM SUBSTANCE ADDICTION COORDINATOR [facility] Blood Red Blood 12/24/2016 [facility] Cells 9:49 PM [facility] BANK Division 00 12/24/2016 UN[facility]ERSITY OF Number 9:49 PM SUBSTANCE ADDICTION COORDINATOR [facility] Status of Released to 12/24/2016 [facility] OF Unit care unit 11:58 PM SUBSTANCE ADDICTION COORDINATOR [facility] Blood Product [id number] 12/24/2016 [facility]ERSITY OF Code 9:49 PM SUBSTANCE ADDICTION COORDINATOR [facility] Unit Status [facility] Specimen Anatomical Collection Method Collection Time Receive d Time (Source) Location / / Volume Laterality 12/23/2016 6:54 AM 7 6:55 SUBSTANCE ADDICTION COORDINATOR AM SUBSTANCE ADDICTION COORDINATOR Nora Vince [employer] LABORATORY Performing Organization Address City/State/ZIP Code Phon e Number [facility] [address] [place] [address] [facility] [address] [place] [address] WEST BANK Blood component (12/23/2016 6:54 AM SUBSTANCE ADDICTION COORDINATOR) [employer] Method Time Signature Unit Number [id number] 12/24/2016 [facility]ERSITY OF 9:49 PM SUBSTANCE ADDICTION COORDINATOR [facility] Blood Red Blood 12/24/2016 UN[facility]ERSITY OF Component Cells 9:49 PM SUBSTANCE ADDICTION COORDINATOR [facility] Leukocyte [place] [facility] Reduced BANK Division 00 12/24/2016 UN[facility]ERSITY OF Number 9:49 PM [facility] BANK Status of No longer 12/24/2016 UN[facility]ERSITY OF Unit available 11:50 PM [facility] 12/24/2016 [place] [id number] BANK Blood Product [id number] 12/24/2016 [facility]ERSITY OF Code 9:49 PM SUBSTANCE ADDICTION COORDINATOR [facility] Unit Status RET [facility] Specimen Anatomical Collection Method Collection Time Receive d Time (Source) Location / / Volume Laterality 12/23/2016 6:54 AM 7 6:55 SUBSTANCE ADDICTION COORDINATOR AM SUBSTANCE ADDICTION COORDINATOR Nora Sha[employer] LABORATORY Performing Organization Address City/State/ZIP Code Phon e Number [facility] [address] [place] [address] WEST BANK Blood component (12/23/2016 6:54 AM SUBSTANCE ADDICTION COORDINATOR) [employer] Method Time Signature Unit Number [id number] 12/24/2016 UN[facility]ERSITY OF 9:49 PM SUBSTANCE ADDICTION COORDINATOR [facility] Blood Red Blood 12/24/2016 UN[facility]ERSITY OF Component Cells 9:49 PM SUBSTANCE ADDICTION COORDINATOR [facility] Leukocyte [place] [facility] Reduced BANK Division 00 12/24/2016 [facility]ITY OF Number 9:49 PM SUBSTANCE ADDICTION COORDINATOR [facility] Status of Released to 12/24/2016 [facility]ITY OF Unit care unit 11:58 PM SUBSTANCE ADDICTION COORDINATOR [facility] Blood Product [id number] 12/24/2016 UN[facility]ERSITY OF Code 9:49 PM SUBSTANCE ADDICTION COORDINATOR [facility] Unit Status [facility] Specimen Anatomical Collection Method Collection Time Receive d Time (Source) Location / / Volume Laterality 12/23/2016 6:54 AM 7 6:55 SUBSTANCE ADDICTION COORDINATOR AM SUBSTANCE ADDICTION COORDINATOR [facility] LAB - BLOOD BANK PRODUCT ORD ER Performing Organization Address City/[facility] Phon e Number [facility] [address] [place] [address] [address] WEST BANK Blood component (12/23/2016 6:54 AM SUBSTANCE ADDICTION COORDINATOR) [facility] Home-Account Method Time Signature Unit Number [id number] 12/24/2016 UNIVERSITY OF 9:49 PM SUBSTANCE ADDICTION COORDINATOR [facility] BANK Blood Red Blood 12/24/2016 UNIVERSITY OF Component Cells 9:49 PM SUBSTANCE ADDICTION COORDINATOR [facility] WEST Reduced BANK Division 00 12/24/2016 UN[facility]ERSITY OF Number 9:49 PM SUBSTANCE ADDICTION COORDINATOR [facility] Status of Released to 12/24/2016 UN[facility]ITY OF Unit care unit 11:58 PM SUBSTANCE ADDICTION COORDINATOR [facility] Blood Product [id number] 12/24/2016 [facility]ERSITY OF Code 9:49 PM SUBSTANCE ADDICTION COORDINATOR [facility] Unit Status [facility] Specimen Anatomical Collection Method Collection Time Receive d Time (Source) Location / / Volume Laterality 12/23/2016 6:54 AM 7 6:55 SUBSTANCE ADDICTION COORDINATOR AM SUBSTANCE ADDICTION COORDINATOR [facility] LAB - BLOOD BANK PRODUCT ORD ER Performing Organization Address City/[facility] Phon e Number [facility] [address] [place] [address] [address] WEST BANK Blood component (12/23/2016 6:54 AM SUBSTANCE ADDICTION COORDINATOR) [facility] Home-Account Method Time Signature Unit Number [id number] 12/24/2016 UNIVERSITY OF 8:38 PM [facility] BANK Blood Red Blood 12/24/2016 UNIVERSITY OF Component Cells 8:38 PM [facility] Leukocyte [place] [facility] Reduced BANK Division 00 12/24/2016 UN[facility]ERSITY OF Number 8:38 PM SUBSTANCE ADDICTION COORDINATOR [facility] Status of Released to 12/24/2016 UNIVERSITY OF Unit care unit 11:58 PM SUBSTANCE ADDICTION COORDINATOR [facility] Blood Product [id number] 12/24/2016 UN[facility]ERSITY OF Code 8:38 PM SUBSTANCE ADDICTION COORDINATOR [facility] Unit Status [facility] Specimen Anatomical Collection Method Collection Time Receive d Time (Source) Location / / Volume Laterality 12/23/2016 6:54 AM 7 6:55 SUBSTANCE ADDICTION COORDINATOR AM SUBSTANCE ADDICTION COORDINATOR Nora [employer] LAB - BLOOD BANK PRODUCT ORD ER Performing Organization Address City/[facility] Code Phon e Number [facility] [address] [place], [place] [address] [place] [address] [address] [facility] Blood component (12/23/2016 6:54 AM SUBSTANCE ADDICTION COORDINATOR) [facility] Home-Account Method Time Signature Unit Number [id number] 12/24/2016 UNIVERSITY OF 8:38 PM [facility] WEST BANK Blood Red Blood 12/24/2016 UNIVERSITY OF Component Cells 8:38 PM SUBSTANCE ADDICTION COORDINATOR [facility] WEST Reduced BANK Division 00 12/24/2016 UNIVERSITY OF Number 8:38 PM [facility]ST BANK Status of Released to 12/24/2016 UN[facility]ERSITY OF Unit care unit 11:58 PM [facility] Blood Product [id number] 12/24/2016 UNIVERSITY OF Code 8:38 PM SUBSTANCE ADDICTION COORDINATOR [facility] Unit Status [facility] Specimen Anatomical Collection Method Collection Time Receive d Time (Source) Location / / Volume Laterality 12/23/2016 6:54 AM 7 6:55 SUBSTANCE ADDICTION COORDINATOR AM SUBSTANCE ADDICTION COORDINATOR [employer] LAB - BLOOD BANK PRODUCT ORD ER Performing Organization Address City/[facility] Code Phon e Number [facility] [address] [place] [address] [address] [address] [address] [facility]ST BANK Blood component (12/23/2016 6:54 AM SUBSTANCE ADDICTION COORDINATOR) [facility] Home-Account Method Time Signature Unit Number [id number] 12/24/2016 UNIVERSITY OF 8:38 PM [facility] BANK Blood Red Blood 12/24/2016 UNIVERSITY OF Component Cells 8:38 PM SUBSTANCE ADDICTION COORDINATOR [facility] Leukocyte [place] [facility] Reduced BANK Division 00 12/24/2016 UNIVERSITY OF Number 8:38 PM SUBSTANCE ADDICTION COORDINATOR [facility] Status of Released to 12/24/2016 [facility]ITY OF Unit care unit 11:58 PM SUBSTANCE ADDICTION COORDINATOR [facility] Blood Product [id number] 12/24/2016 UN[facility]ERSITY OF Code 8:38 PM SUBSTANCE ADDICTION COORDINATOR [facility] B[facility] Unit Status [facility] Specimen Anatomical Collection Method Collection Time Receive d Time (Source) Location / / Volume Laterality 12/23/2016 6:54 AM 7 6:55 SUBSTANCE ADDICTION COORDINATOR AM SUBSTANCE ADDICTION COORDINATOR [facility] [employer] [facility] Performing Organization Address City/State/ZIP Code Phon e Number [facility] [address] [place] [address] [address] [facility] Blood component (12/23/2016 6:54 AM SUBSTANCE ADDICTION COORDINATOR) [employer] Method Time Signature Unit Number [id number] 12/24/2016 UNIVERSITY OF 8:38 PM SUBSTANCE ADDICTION COORDINATOR [facility] B[facility] Blood Red Blood 12/24/2016 UNIVERSITY OF Component Cells 8:38 PM SUBSTANCE ADDICTION COORDINATOR [facility] WEST Reduced BANK Division 00 12/24/2016 UN[facility]ERSITY OF Number 8:38 PM SUBSTANCE ADDICTION COORDINATOR [facility] B[facility] Status of Released to 12/24/2016 UN[facility]ERSITY OF Unit care unit 11:58 PM SUBSTANCE ADDICTION COORDINATOR [facility] Blood Product [id number] 12/24/2016 UN[facility]ERSITY OF Code 8:38 PM SUBSTANCE ADDICTION COORDINATOR [facility] Unit Status [facility] Specimen Anatomical Collection Method Collection Time Receive d Time (Source) Location / / Volume Laterality 12/23/2016 6:54 AM 7 6:55 SUBSTANCE ADDICTION COORDINATOR AM SUBSTANCE ADDICTION COORDINATOR [facility] [employer] [facility] Performing Organization Address City/State/ZIP Code Phon e Number [facility] [address] [place] [address] [address] [facility] Blood component (12/23/2016 6:54 AM SUBSTANCE ADDICTION COORDINATOR) [employer] Method Time Signature Unit Number [id number] 12/24/2016 UN[facility]ERSITY OF 7:32 PM SUBSTANCE ADDICTION COORDINATOR [facility] B[facility] Blood Red Blood 12/24/2016 UNIVERSITY OF Component Cells 7:32 PM SUBSTANCE ADDICTION COORDINATOR [facility] Leukocyte [place] [facility] Reduced BANK Division 00 12/24/2016 UN[facility]ITY OF Number 7:32 PM SUBSTANCE ADDICTION COORDINATOR [facility] Status of Released to 12/24/2016 UN[facility]ITY OF Unit care unit 11:58 PM SUBSTANCE ADDICTION COORDINATOR [facility] Blood Product [id number] 12/24/2016 UN[facility]ERSITY OF Code 7:32 PM SUBSTANCE ADDICTION COORDINATOR [facility] Unit Status [facility] Specimen Anatomical Collection Method Collection Time Receive d Time (Source) Location / / Volume Laterality 12/23/2016 6:54 AM 7 6:55 SUBSTANCE ADDICTION COORDINATOR AM SUBSTANCE ADDICTION COORDINATOR [facility] [employer] [facility] Performing Organization Address City/[facility] Code Phon e Number [phone] [place] [phone] [place] [address] Blood component (12/23/2016 6:54 AM SUBSTANCE ADDICTION COORDINATOR) [employer] Method Time Signature Unit Number [id number] 12/24/2016 UN[facility]ERSITY OF 7:32 PM SUBSTANCE ADDICTION COORDINATOR [facility] Blood Red Blood 12/24/2016 UN[facility]ERSITY OF Component Cells 7:32 PM SUBSTANCE ADDICTION COORDINATOR [facility] WEST Reduced BANK Division 00 12/24/2016 [facility] OF Number 7:32 PM SUBSTANCE ADDICTION COORDINATOR [facility] Status of Released to 12/24/2016 [facility]ERSITY OF Unit care unit 11:58 PM SUBSTANCE ADDICTION COORDINATOR [facility] Blood Product [id number] 12/24/2016 UN[facility]ERSITY OF Code 7:32 PM SUBSTANCE ADDICTION COORDINATOR [facility] Unit Status [facility] Specimen Anatomical Collection Method Collection Time Receive d Time (Source) Location / / Volume Laterality 12/23/2016 6:54 AM 7 6:55 SUBSTANCE ADDICTION COORDINATOR AM SUBSTANCE ADDICTION COORDINATOR [facility] [employer] [facility] Performing Organization Address City/State/ZIP Code Phon e Number [facility] [address] [place], [place] [phone] [place] [phone] [place] [address] BANK Blood component (12/23/2016 6:54 AM SUBSTANCE ADDICTION COORDINATOR) Patholo gist Method Time Signature Unit Number [id number] 12/24/2016 UNIVERSITY OF 7:05 PM SUBSTANCE ADDICTION COORDINATOR [facility] Blood Red Blood 12/24/2016 UNIVERSITY OF Component Cells 7:05 PM SUBSTANCE ADDICTION COORDINATOR [facility] Leukocyte [facility]ST Reduced BANK Division 00 12/24/2016 UN[facility]ERSITY OF Number 7:05 PM SUBSTANCE ADDICTION COORDINATOR [facility] Status of Released to 12/24/2016 UN[facility]ERSITY OF Unit care unit 11:58 PM SUBSTANCE ADDICTION COORDINATOR [facility] Blood Product [id number] 12/24/2016 UN[facility]ERSITY OF Code 7:05 PM SUBSTANCE ADDICTION COORDINATOR [facility] Unit Status [facility] Specimen Anatomical Collection Method Collection Time Receive d Time (Source) Location / / Volume Laterality 12/23/2016 6:54 AM 7 6:55 SUBSTANCE ADDICTION COORDINATOR AM SUBSTANCE ADDICTION COORDINATOR [employer] [facility]ORATORY Performing Organization Address City/[facility] Code Phon e Number [phone] [place] [address] Blood component (12/23/2016 6:54 AM SUBSTANCE ADDICTION COORDINATOR) [facility] gist Method Time Signature Unit Number [id number] 12/24/2016 UNIVERSITY OF 7:05 PM SUBSTANCE ADDICTION COORDINATOR [facility] Blood Red Blood 12/24/2016 UNIVERSITY OF Component Cells 7:05 PM SUBSTANCE ADDICTION COORDINATOR [facility] Leukocyte [place] [facility] Reduced BANK Division 00 12/24/2016 [facility]ERSITY OF Number 7:05 PM [facility] BANK Status of Released to 12/24/2016 UN[facility]ERSITY OF Unit care unit 11:58 PM [facility] Blood Product [id number] 12/24/2016 UN[facility]ERSITY OF Code 7:05 PM [facility] WE[facility] BANK Unit Status [facility] Specimen Anatomical Collection Method Collection Time Receive d Time (Source) Location / / Volume Laterality 12/23/2016 6:54 AM 7 6:55 SUBSTANCE ADDICTION COORDINATOR AM SUBSTANCE ADDICTION COORDINATOR [employer] [facility] Performing Organization Address City/State/[facility] Code Phon e Number [facility] [address] [place], [place] [phone] [place] [phone] [place] [address] ABO/Rh type and screen (12/23/2016 6:54 AM SUBSTANCE ADDICTION COORDINATOR) [facility] gist Method Time Signature Units Ordered 12 12/24/2016 UNIVERSITY OF 9:49 PM SUBSTANCE ADDICTION COORDINATOR [facility] ABO B 12/23/2016 UN[facility]ERSITY OF 7:32 AM SUBSTANCE ADDICTION COORDINATOR [facility] BANK RH(D) Pos [facility] B[facility] Antibody Neg 12/23/2016 UNIVERSITY OF Screen 7:32 AM SUBSTANCE ADDICTION COORDINATOR [facility] Test Valid University of 12/23/2016 [facility] OF [facility] 7:01 AM SUBSTANCE ADDICTION COORDINATOR [facility] BANK w Hospital Specimen 12/26/2016 12/23/2016 UNIVERSITY OF Expires 7:01 AM SUBSTANCE ADDICTION COORDINATOR [facility] Crossmatch Red Blood 12/24/2016 UNIVERSITY OF Cells 7:05 PM SUBSTANCE ADDICTION COORDINATOR [facility] Specimen Anatomical Collection Method Collection Time Receive d Time (Source) Location / / Volume Laterality Blood specimen 12/23/2016 6:54 AM 017 6:55 (specimen) SUBSTANCE ADDICTION COORDINATOR AM SUBSTANCE ADDICTION COORDINATOR Nora Mohamud LAB - BLOOD BANK TEST ORDER Performing Organization Address City/[facility] Code Phon e Number [address] [address] [facility] ABO/Rh type and screen (12/20/2016 10:48 AM CDT) [facility] Method Time Signature ABO B 12/20/2016 UNIVERSITY OF 11:31 AM CDT [facility] BANK RH(D) Pos [facility] WE[facility] BANK Antibody Neg 12/20/2016 UNIVERSITY OF Screen 11:31 AM CDT [facility] Test Valid University of 12/20/2016 [facility] [place] 11:00 AM CDT [facility] w Hospital Specimen 12/23/2016 12/20/2016 UNIVERSITY OF Expires 11:00 AM CDT [facility] Specimen Anatomical Collection Method Collection Time Receive d Time (Source) Location / / Volume Laterality Blood specimen 12/20/2016 10:48 7 (specimen) AM CDT 10:49 AM CDT Lashawn Patel MD LAB - BLOOD BANK TEST ORDER Performing Organization Address City/[facility]/ZIP Code Phon e Number [address] [address] [facility] Maternal BPP Single (12/19/2016 8:46 AM CDT) Anatomical Region Laterality Modality Ultrasound Specimen (Source) Anatomical Collection Method Collection Time Re ceived Time Location / / Volume Laterality 12/19/2016 8:16 AM CDT Impressions 12/25/2016 9:13 AM SUBSTANCE ADDICTION COORDINATOR IMPRESSION 1) Intrauterine at 28 6/7 week s gestational age. 2) The BPP is reassuring. 3) Oligohydramnios is seen consistent wi th know PPROM. 4) A complete posterior placenta previa is again seen. Narrative 12/25/2016 9:13 AM SUBSTANCE ADDICTION COORDINATOR BPP Pat. Name: KING DEANN Study Date: 8:16am Pat. NO: [id number] Referring ??: CHRIST LOZADA Site: [facility] Compliance Investigator: Jay Lu : 1980 Age: 36 INDICATION Premature Rupture of Membranes ( PPROM) Complete previa. METHOD [facility] ANTEPARTUM inpatient exam, Transabd ominal [...] Pat. Name:Elizabeth KING Date:12/19 8:16am Pat. NO: [id number] MD:CHRIST BHAT ON [facility]Yesenia Sen RDMS :1980Age:36 INDICATION Premature Rupture of Membranes ( PPROM) Complete previa. METHOD [facility] ANTEPARTUM inpatient exam, Transabd ominal [...] rasound with the patient. [facility]. Continue inpatient management of PPROM. [...] previa is again seen. Erum Manzanares MD [facility] US ORDERABLES ABO/Rh type and screen (12/17/2016 6:54 AM CDT) [facility] Time Signature ABO B 12/17/2016 [facility] 7:49 AM CDT [facility] RH(D) Pos [facility] Antibody Neg 12/17/2016 UNIVERSITY OF Screen 7:49 AM CDT [facility] Test Valid University 12/17/2016 [facility] 7:18 AM CDT [facility],[place] BANK w Hospital Specimen 12/20/2016 12/17/2016 [facility] OF Abhinav 7:18 AM CDT [facility] Specimen Anatomical Collection Method Collection Time Receive d Time (Source) Location / / Volume Laterality Blood specimen 12/17/2016 6:54 AM 017 6:56 (specimen) CDT AM CDT Nora Munguia Kirby LAB - BLOOD BANK TEST ORDER Performing Organization Address City/State/[facility] Code Phon e Number [facility] [address] [place] [address] [facility] Maternal US OB Limited Single/Multiple (12/16/2016 9:24 [...] DEANN KING Study Date: 8:43am Pat. NO: [id number] Referring ??: CHRIST LOZADA Site: [facility] Compliance Investigator: Jay Lu : 1980 Age: 36 INDICATION Premature Rupture of Membranes ( PPROM) Complete previa. METHOD [facility] ANTEPARTUM inpatient exam, Transabd ominal [...] Pat. Name:Elizabeth KING Date:12/16 8:43am Pat. NO: [id number] MD:CHRIST BHAT ON [facility]Yesenia Sen RDMS :1980Age:36 INDICATION Premature Rupture of Membranes ( PPROM) Complete previa. METHOD [facility] ANTEPARTUM inpatient exam, Transabd ominal [...] with twi weekly BPP. Continue inpatient management until delivery. [...] stent with known PPROM. Erum Manzanares MD [facility] ORDERABLES ABO/Rh type and screen (12/14/2016 12:28 AM CDT) [facility] Method Time Signature ABO B 12/14/2016 UNIVERSITY OF 4:01 AM CDT [facility] RH(D) Pos [facility] Antibody Neg 12/14/2016 UNIVERSITY OF Screen 4:01 AM CDT [facility] Test Valid University of 12/14/2016 [facility] OF [facility] [place] 1:05 AM CDT [facility],[place] BANK w Hospital Specimen 12/17/2016 12/14/2016 UNIVERSITY OF Expires 1:05 AM CDT [facility] Specimen Anatomical Collection Method Collection Time Receive d Time (Source) Location / / Volume Laterality Blood specimen 12/14/2016 12:28 7 (specimen) AM CDT 12:29 AM CDT Nalini Eli MD LAB - BLOOD BANK TEST ORDER Performing Organization Address City/[facility]/ZIP Code Phon e Number [facility] [address] [place], [place] [phone] [place] [address] Hepatitis B Surface Antibody (12/13/2016 9:42 PM CDT) P athologist Signature Hepatitis B 0.21 <8.00 12/16/2016 UNIVERSITY OF Surface m[IU]/mL 11:39 AM CDT [facility] Comment: Nonreactive, No antibody detect ed when the value is less than 8.00 m[IU]/mL. Specimen Anatomical Collection Method Collection Time Receive d Time (Source) Location / / Volume Laterality Blood specimen 12/13/2016 9:42 PM 017 9:43 (specimen) CDT PM CDT Erum Manzanares MD LAB - BLOOD ORDERABLES Performing Organization Address City/[facility]/ZIP Code Phon e Number [facility] [address] [place] [address] [facility] Hepatitis A Antibody IgG (12/13/2016 9:42 PM CDT) Patholo gist Method Time Signature Hepatitis A Nonreactive NR^Nonrea 12/16/2016 UNIVERSITY OF Antibody IgG ctive 11:39 AM CDT [facility] Comment: This assay cannot be used for t he diagnosis of acute HAV infection. Specimen Anatomical Collection Method Collection Time Receive d Time (Source) Location / / Volume Laterality Blood specimen 12/13/2016 9:42 PM 017 9:43 (specimen) CDT PM CDT Erum Manzanares MD LAB - BLOOD ORDERABLES Performing Organization Address City/State/ZIP Code Phon e Number [facility] [address] [place] [phone] [facility] Hepatitis B core antibody (12/13/2016 9:42 PM CDT) Patholo gist Method Time Signature Hepatitis B Nonreactive NR^Nonrea 12/16/2016 [facility] Maricruz ctive 11:39 AM CDT [facility] Specimen Anatomical Collection Method Collection Time Receive d Time (Source) Location / / Volume Laterality Blood specimen 12/13/2016 9:42 PM 017 9:43 (specimen) CDT PM CDT Erum Manzanares MD LAB - BLOOD ORDERABLES Performing Organization Address City/State/ZIP Code Phon e Number [facility] [address] [place] [address] [facility] MR (12/13/2016 2:33 PM CDT) Anatomical Region [...] percreta. 2. Oligohydramnios. ZARINA THOMAS MD Nora Vincezainab Mohamud [facility] MRI ORDERABLES Maternal US OB Limited Single/Multiple [...] DEANN KING Study Date: 7:48am Pat. NO: [id number] Referring ??MD: CHRIST LOZADA Site: [facility] Compliance Investigator: Jay Lu : 1980 Age: 36 INDICATION Premature Rupture of Membranes ( PPROM), Complete Previa. METHOD [facility] ANTEPARTUM inpatient exam, Transabd ominal [...] The patient was escorted back to her [facility] pital room at the end of the ultrasound. Please see [facility] for further documentation regarding plan of care. If you have questions regarding today's evaluation or if we can be of further service, please contact the [facility]. anomalies may be present but not detected. Procedure Note CrossNora MD - 12/12/2016For matting of this note might be different from the original. Cx TV Pat. Name:Elizabeth KING Date:12/12 7:48am Pat. NO: [id number] MD:CHRIST BHAT ON [facility]:Yesenia Sen RDMS :1980Age:36 INDICATION Premature Rupture of Membranes ( PPROM), Complete Previa. METHOD [facility] ANTEPARTUM inpatient exam, Transabd ominal [...] The patient was escorted back to her [facility] room at the end of the ultrasound. Please see [facility] for further documentation regarding plan [...] however the placental-myometrial interface appears normal. Nora Vince Mohamud IMG [facility] US ORDERABLES ABO/Rh type and screen (12/11/2016 9:05 AM CDT) [facility] Method Time Signature ABO B 12/11/2016 UNIVERSITY 10:14 AM CDT [facility] RH(D) Pos [facility] Antibody Neg 12/11/2016 UNIVERSITY OF Screen 10:14 AM CDT [facility] Test Valid [facility] 12/11/2016 [facility] 9:21 AM CDT [facility] BANK w Hospital Specimen 12/14/2016 12/11/2016 UNIVERSITY OF Expires 9:21 AM CDT [facility] Specimen Anatomical Collection Method Collection Time Receive d Time (Source) Location / / Volume Laterality Blood specimen 12/11/2016 9:05 AM 017 9:06 (specimen) CDT AM CDT Nalini Eli MD LAB - BLOOD BANK TEST ORDER Performing Organization Address City/State/ZIP Code Phon e Number [facility] [address] [place] [address] [facility] Echocardiogram Complete (12/10/2016 9:05 AM CDT) Anatomical Region Laterality Modality Echocardiography Specimen (Source) Anatomical Collection Method Collection Time Re ceived Time Location / / Volume Laterality 12/10/2016 8:00 AM CDT Narrative 12/10/2016 9:23 AM CDT [id number]^EFRA^NORA^VINCE ?Study ID: [id number] ?[facility] ?[facility] ?[address] ?[place] [address] ? Echocardiogram __ Name: DEANN KING Maycol Study Date: 12/10/2016 08:00 AM ? Patient Location: [id number] Gender: Female ?Patient Class: Inpatient : 1980 ? Age: 36 yrs Ordering Provider: NORA MOHAMUD Performed By: Krys Servin RDCS Reading Physician: Brice Lloyd MD Reason For Study: Other, Please Specify in Comments Data: Number of fetuses: This is a espinoza gestation. Due date: 03/07/2017. Gestational age: 27w4d. Deli very at: [place]. Specific Indication: echocar diogram performed for family [...] the left atriu m. There is laminar mwhvj-jr-dqrj shunting across the foramen ovale. Atrioventricular valves: [...] Procedure Note Brice Lloyd MD - [phone] [id number] [facility] [id number]^EFRA^NORA^VINCE Study ID: [id number] [facility]'[address] [address] Echocardiogram __ Name: KINGDEANN Study Date: 12/10/2016 08:00 AM Patient Location: [facility] Gender: Female Patient Class: Inpatient : 1980 Age: 36 yrs Ordering Provider: NORA MOHAMUD Performed By: Krys Servin RDCS Reading Physician: Brice Lloyd MD Reason For Study: Other, Please Specify in Comments Data: Number of fetuses: This is a espinoza gestation. Due date: 03/07/2017. Gestational age: 27w4d. Deli very at: [place]. Specific Indication: echocar diogram performed for family [...] the left atriu m. There is laminar eyeoa-vv-dvbr shunting across the foramen ovale. Atrioventricular valves: [...] Brice Lloyd MD 12/10/2016 09:23 AM Nora Vince Mohamud [...] DEANN KING Study Date: 9:10am Pat. NO: [id number] Referring ??MD: CHRIST LOZADA Site: [facility] Compliance Investigator: Jay Lu : 1980 Age: 36 INDICATION Premature Rupture of Membranes ( PPROM) Complete previa. METHOD Transabdominal ultrasound examination, U [facility] ANTEPARTUM inpatient exam. View: Suboptimal view: limited by maternal body habitus. Suboptimal view: limited by low amniotic fluid volume. Espinoza . Number of fetuses: 1. DATING ? Date ?Details ?Gest. age ?JEAN MARIE External assessment ?/28/2 017 ?GA: 6 w + 2 d [...] 2 lb 1 ?oz Calculated by ?[employer] ([id number]) Head / Face / Neck Biometry: Wood Setter ?3.9 ?mm ? Amniotic Fluid / FHR: [...] detected. Procedure Note Italia Galarza, DO - 12/08/2016Format ting of this note might be different from the original. Comp Follow Up Pat. Name:Clovis KINGjames Date:12/08 9:10am Pat. NO: [id number] MD:CHRIST BHAT ON [facility]Yesenia Sen RDMS :1980Age:36 INDICATION Premature Rupture of Membranes ( PPROM) Complete previa. METHOD Transabdominal ultrasound examination, U [facility] ANTEPARTUM inpatient exam. View: Suboptimal view: limited [...] 2 lb 1 oz Calculated by Flora ([id number]) Head / Face / Neck Biometry: Wood Setter 3.9 mm Amniotic Fluid / FHR: AF [...] MARCELLA consistent with PPROM. Rossana Barker MD [facility] US ORDERABLES Wound Culture Aerobic Bacterial (12/07/2016 6:00 PM CDT) [facility] gist Method Time Signature Specimen Leg Wound INFECTIOUS [...] MICRO GENERAL ORDERABL ES Performing Organization Address City/[facility]/ZIP Code Phon e Number INFECTIOUS DISEASES [address] [place] [address] DIAGNOSTIC LABORATORY, [facility] INFECTIOUS DISEASE [address] [place] [address], [facility] DIAGNOSTIC LABORATORY Methicillin resistant staph aureus cult (12/07/2016 6:00 PM CDT) [facility] gist Method Time Signature Specimen Wound [facility] B[facility] Special Specimen 12/07/2016 UN[facility]ITY OF Requests collected in 7:06 PM CDT [facility] eSwab [place] [facility] transport BANK (white cap) Culture Micro Canceled, 12/07/2016 UN[facility]ERSITY OF Test credited 8:13 PM CDT [facility] Culture Micro Test 12/07/2016 UNIVERSITY OF reordered as 8:[address] [facility] EAST BANK Specimen Anatomical Collection Method Collection Time Receive d Time (Source) Location / / Volume Laterality Specimen from 12/07/2016 6:00 PM 12/08/19 17 6:21 wound (specimen) CDT PM CDT Rossana Barker MD LAB - MICRO GENERAL ORDERABL ES Performing Organization Address City/State/ZIP Code Phon e Number [address] [address] [place] TSH with free T4 reflex (12/07/2016 3:43 PM CDT) athologist Signature TSH 3.09 0.40 - 4.00 12/09/2016 [facility] mU/L 5:39 PM CDT [facility] Specimen Anatomical Collection Method Collection Time Receive d Time (Source) Location / / Volume Laterality 12/07/2016 3:43 PM 7 3:44 CDT PM CDT Nora Leyva MD LAB - BLOOD ORDERABLES Performing Organization Address City/State/ZIP Code Phon e Number [facility] [address] [place] [address] [facility] Rubella Antibody IgG Quantitative (12/07/2016 3:43 PM CDT) Analysis Performed At Patho logist Time Signature Rubella Antibody 7 IU/mL 12/09/2016 UNIVERSITY O F IgG Quantitative 11:02 AM CDT [facility] Comment: Negative Reference Range: ??Unvaccinated Negative 0-7 IU/mL Vaccinated or previous exposure Positive 10 IU/ml or greater Specimen Anatomical Collection Method Collection Time Receive d Time (Source) Location / / Volume Laterality 12/07/2016 3:43 PM 7 3:44 CDT PM CDT Nora Leyva MD LAB - BLOOD ORDERABLES Performing Organization Address City/State/ZIP Code Phon e Number [facility] [address] [place] [address] [facility] (ABNORMAL) Hepatitis C RNA quantitative (12/07/2016 3:43 PM CDT) Patholo gist Method Time Signature HCV RNA Quant [id number] HCVND^HCV 12/09/2016 [facility] IU/ml (A) RNA Not 12:19 PM CDT [facility] [IU]/mL BANK Comment: [...] (H) <1.2 Log IU/mL 12/09/2016 12:19 PM [facility] Qt CDT [facility] BANK Specimen Anatomical Collection Method Collection Time Receive d Time (Source) Location / / Volume Laterality Blood specimen 12/07/2016 3:43 PM 017 3:44 (specimen) CDT PM CDT Nora Leyva MD LAB - BLOOD ORDERABLES Performing Organization Address City/State/ZIP Code Phon e Number [facility] [address] [place] [address] [place] hemoglobin stain Kleihauer (12/07/2016 3:43 PM CDT) Patholo gist Method Time Signature Kleihauer-Bet No cells seen 12/07/2016 [facility] OF ke Rhogam not required 7:22 PM CDT [place] [facility] Patient Rh positive [facility] Test performed at [facility] [place] BANK Specimen Anatomical Collection Method Collection Time Receive d Time (Source) Location / / Volume Laterality Blood specimen 12/07/2016 3:43 PM 017 3:45 (specimen) CDT PM CDT Nora Leyva MD LAB - BLOOD BANK TEST ORDER Performing Organization Address City/[facility]/ZIP Code Phon e Number [address] [address] [facility] Fibrinogen activity (12/07/2016 3:43 PM CDT) P athologist Signature Fibrinogen 362 200 - 420 12/07/2016 [facility] mg/dL 5:44 PM CDT [facility] Specimen Anatomical Collection Method Collection Time Receive d Time (Source) Location / / Volume Laterality Blood specimen 12/07/2016 3:43 PM 017 3:44 (specimen) CDT PM CDT Nora Leyva MD LAB - BLOOD ORDERABLES Performing Organization Address City/State/ZIP Code Phon e Number [address] [address] [facility] Partial thromboplastin time (12/07/2016 3:43 PM CDT) P athologist Signature PTT 27 22 - 37 sec 12/07/2016 [facility] 5:44 PM CDT [facility] Specimen Anatomical Collection Method Collection Time Receive d Time (Source) Location / / Volume Laterality Blood specimen 12/07/2016 3:43 PM 017 3:44 (specimen) CDT PM CDT Nora Leyva MD LAB - BLOOD ORDERABLES Performing Organization Address City/State/ZIP Code Phon e Number [address] [address] [facility] INR (12/07/2016 3:43 PM CDT) athologist Signature INR 1.06 0.86 - 1.14 12/07/2016 [facility] 5:44 PM CDT [facility] Specimen Anatomical Collection Method Collection Time Receive d Time (Source) Location / / Volume Laterality Blood specimen 12/07/2016 3:43 PM 017 3:44 (specimen) CDT PM CDT Nora Leyva MD LAB - BLOOD ORDERABLES Performing Organization Address City/[facility]/ZIP Code Phon e Number [address] [address] [facility] (ABNORMAL) Comprehensive metabolic panel (12/07/2016 3:43 PM CDT) athologist Signature Sodium 141 133 - 144 12/07/2016 [facility] mmol/L 4:08 PM CDT [facility] Potassium 3.4 3.4 - 5.3 12/07/2016 [facility] mmol/L 4:08 PM CDT [facility] Chloride 108 94 - 109 12/07/2016 [facility] mmol/L 4:08 PM CDT [facility] Carbon Dioxide 21 20 - 32 12/07/2016 [facility] mmol/L 4:08 PM CDT [facility] Anion Gap 12 3 - 14 12/07/2016 [facility] mmol/L 4:08 PM CDT [facility] Glucose 88 70 - 99 12/07/2016 [facility] mg/dL 4:08 PM CDT [facility] Urea Nitrogen 6 (L) 7 - 30 12/07/2016 [facility] mg/dL 4:08 PM CDT [facility] Creatinine 0.55 0.52 - 12/07/2016 [facility] 1.04 mg/dL 4:08 PM CDT [facility] GFR Estimate >90 >60 12/07/2016 [facility] mL/min/1.7 4:[address] Comment: Non GFR Calc GFR Estimate If >90 >60 mL/min/1.7m2 12/07/2016 4:08 P M [facility] Black [facility] Comment: GFR Calc Calcium 8.1 (L) 8.5 - 10.1 12/07/2016 4:08 PM [facility] mg/dL [facility] Bilirubin Total 0.4 0.2 - 1.3 12/07/2016 4:08 PM [facility] mg/dL [facility] Albumin 2.5 (L) 3.4 - 5.0 g/dL 12/07/2016 4:08 PM [facility] Protein Total 6.1 (L) 6.8 - 8.8 g/dL 12/07/2016 4:08 PM [facility] Alkaline Phosphatase 69 40 - 150 U/L 12/07/2016 4:08 PM [facility] ALT 26 0 - 50 U/L 12/07/2016 4:08 PM [facility] AST 21 0 - 45 U/L 12/07/2016 4:08 PM [facility] Specimen Anatomical Collection Method Collection Time Receive d Time (Source) Location / / Volume Laterality Blood specimen 12/07/2016 3:43 PM 017 3:44 (specimen) CDT PM CDT Nora Leyva MD LAB - BLOOD ORDERABLES Performing Organization Address City/State/ZIP Code Phon e Number [facility] [address] [place] [address] [facility] Urine Culture Aerobic Bacterial (12/07/2016 2:55 PM CDT) Component Value Ref Test Analysis Performed At [facility] Range Method Time Signature Specimen Unspecified Urine INFECTIOUS Description DISEASE DIAGNOSTIC LABORATORY Special Specimen received 12/07/2016 [facility] in preservative 7:19 PM CDT [facility] Culture Micro >100,000 colonies/mL 12/08/2016 INFE CTIOUS [...] Code Phon e Number INFECTIOUS DISEASES [address] [place] [address] DIAGNOSTIC LABORATORY, [facility] INFECTIOUS DISEASE [address] [place] [address], [facility] DIAGNOSTIC LABORATORY [address] [address], [facility] (ABNORMAL) UA reflex to Microscopic and Culture (12/07/2016 2:55 PM CDT) [facility] Method Time Signature Color Urine Yellow 12/07/2016 [facility] 3:37 PM CDT [facility] Appearance Urine Clear 12/07/2016 [facility] O F 3:37 PM CDT [facility] Glucose Urine Negative NEG^Negat 12/07/2016 [facility] OF paula mg/dL 3:37 PM CDT [facility] Bilirubin Urine Negative NEG^Negat 12/07/2016 [facility] paula 3:37 PM CDT [facility] Ketones Urine Negative NEG^Negat 12/07/2016 [facility] [place] mg/dL 3:37 PM CDT [facility] Specific [place] 1.015 1.003 - 12/07/2016 [facility] O F Urine 1.035 3:37 PM CDT [facility] Blood Urine Negative NEG^Negat 12/07/2016 [facility] paula 3:37 PM CDT [facility] pH Urine 6.5 5.0 - 7.0 12/07/2016 [facility] pH 3:37 PM T [facility] Protein Albumin 10 (A) NEG^Negat 12/07/2016 [facility] Urine paula mg/dL 3:37 PM CDT [facility] Urobilinogen Normal 0.0 - 2.0 12/07/2016 [facility] mg/dL mg/dL 3:37 PM T [facility] Nitrite Urine Negative NEG^Negat 12/07/2016 [facility] paula 3:37 PM T [facility] Leukocyte Moderate (A) NEG^Negat 12/07/2016 [facility] Esterase Urine paula 3:37 PM T [facility] Source Midstream 12/07/2016 [facility] Urine 3:23 PM T [facility] RBC Urine 1 0 - 2 12/07/2016 U OF M /HPF 3:49 PM CDT [facility] WBC Urine 7 (H) 0 - 2 12/07/2016 [facility] M /HPF 3:49 PM T [facility] Bacteria Urine Few (A) NEG^Negat 12/07/2016 [facility] M paula /HPF 3:49 PM T [facility] Squamous 1 0 - 1 12/07/2016 U [facility] M Epithelial /HPF /HPF 3:49 PM T [facility] Urine [facility] Mucous Urine Present (A) NEG^Negat 12/07/2016 [facility] pa[place] /LPF 3:49 PM [facility] Specimen (Source) Anatomical Collection Method Collection Time Re ceived Time Location / / Volume Laterality Examination of URINE SPECIMEN 12/07/2016 2:55 12/08/19 17 3:22 midstream urine OBTAINED BY CLEAN PM CDT PM CDT specimen CATCH PROCEDURE / (procedure) Unknown Nora Leyva MD LAB - URINE ORDERABLES Performing Organization Address City/State/ZIP Code Phon e Number U OF [facility] [address] [place] [address] [facility] U OF M [facility] Drug abuse scrn 7 UR (/) (RH, SH, UR) (12/07/2016 2:55 PM CDT) [facility] Method Time Signature Amphetamine Qual Negative NEG^Negat 12/07/2016 [facility] F Urine paula 3:48 PM [facility] Comment: Cutoff for a negative amphetami ne is 500 ng/mL or less. Cannabinoids Qual Negative NEG^Negative 12/07/2016 3:48 PM [facility] Urine [facility] Comment: Cutoff for a negative cannabino id is 50 ng/mL or less. Cocaine Qual Urine Negative NEG^Negative 12/07/2016 3:48 PM [facility] Comment: Cutoff for a negative cocaine i s 300 ng/mL or less. Opiates Qualitative Negative NEG^Negative 12/07/2016 3:48 P M [facility] Urine [facility] Comment: Cutoff for a negative opiate is 300 ng/mL or less. Pcp Qual Urine Negative NEG^Negative 12/07/2016 3:48 PM CDT [facility] Comment: Cutoff for a negative PCP is 25 ng/mL or less. Specimen Anatomical Collection Method Collection Time Receive d Time (Source) Location / / Volume Laterality Urine specimen URINE SPECIMEN 12/07/2016 2:55 PM 12/07 3:22 (specimen) OBTAINED BY CLEAN CDT PM CDT CATCH PROCEDURE / Unknown Nora Leyva MD LAB - URINE ORDERABLES Performing Organization Address City/[facility] Phon e Number [address] Chlamydia trachomatis PCR (12/07/2016 2:54 PM CDT) Patholo gist Method Time Signature Specimen Vagina 12/07/2016 [facility] Description 3:13 PM CDT [facility] Chlamydia Negative NEG^Negat 12/08/2016 [facility] Trachomatis PCR paula 1:55 PM CDT [facility] Comment: Negative for C. trachomatis rRNA by prescott scription mediated amplification. A negative result by systems development consultant media kris amplification does not preclude the [...] MICRO GENERAL ORDERABL ES Performing Organization Address City/[facility]/ZIP Code Phon e Number [facility] [address] [place], [place] [id number] [place] [address] Neisseria gonorrhoeae PCR (12/07/2016 2:54 PM CDT) Analysis Performed At Patho logist Time Signature Specimen Vagina 12/07/2016 [facility] OF Descrip 3:13 PM CDT [facility] N Gonorrhea Negative NEG^Negati 12/08/2016 [facility] PCR ve 1:55 PM CDT [facility] Comment: Negative for N. gonorrhoeae rRNA by prescott scription mediated amplification. A negative result by systems development consultant media kris amplification does not preclude the [...] MICRO GENERAL ORDERABL ES Performing Organization Address City/[facility]/ZIP [facility] Phon e Number [facility] [address] [place], [place] [id number] [place] [id number] [place] [address] Wet prep (12/07/2016 2:54 PM CDT) Component Value Ref Test Analysis Performed At [facility] Home-Account Range Method Time Signature Specimen Vagina [facility] Description [facility] Wet Prep No Trichomonas 12/07/2016 [facility] seen 3:34 PM CDT [facility] Wet Prep No yeast seen 12/07/2016 [facility] 3:34 PM CDT [facility] Wet Prep Moderate 12/07/2016 [facility] PMNs seen 3:34 PM CDT [facility] Wet Prep No clue cells 12/07/2016 [facility] seen 3:34 PM CDT [facility] Specimen Anatomical Collection Method Collection Time Receive d Time (Source) Location / / Volume Laterality Specimen from 12/07/2016 2:54 PM 12/08/19 17 3:10 vagina CDT PM CDT (specimen) Nora Leyva MD LAB - MICRO GENERAL ORDERABL ES Performing Organization Address City/[facility] Code Phon e Number [address] (ABNORMAL) Group B strep PCR (12/07/2016 2:54 PM CDT) [employer] Method Time Signature Group B Strep Vaginal 12/07/2016 [facility] PCR Spec Valdemar Rectal 2:58 PM CDT [facility] Group B Strep Positive (A) NEG^Negat 12/08/2016 [facility] O F PCR paula 1:27 PM CDT [facility] Comment: Positive: GBS DNA detected, presumed pos itive for GBS. Assay performed on incubated broth cultu re of specimen using [employer] real-time PCR. Specimen Anatomical Collection Method Collection Time Receive d Time (Source) Location / / Volume Laterality Vaginal Rectal 12/07/2016 2:54 PM 017 3:14 CDT PM CDT Nora Leyva MD LAB - MICRO GENERAL ORDERABL ES Performing Organization Address City/State/ZIP Code Phon e Number [facility] [address] [place] [address] [address] [facility] ABO/Rh type and screen (12/07/2016 2:41 PM CDT) [facility] Method Time Signature ABO B 12/07/2016 [facility] 6:08 PM CDT [facility] RH(D) Pos [facility] Antibody Neg 12/07/2016 [facility] Screen 6:08 PM CDT [facility] Test Valid University 12/07/2016 [facility] 5:31 PM CDT [facility] B[facility] Hospital Specimen 12/10/2016 12/07/2016 [facility] OF Expires 5:31 PM CDT [facility] Specimen Anatomical Collection Method Collection Time Receive d Time (Source) Location / / Volume Laterality Blood specimen 12/07/2016 2:41 PM 017 2:44 (specimen) CDT PM CDT Rossana Barker MD LAB - BLOOD BANK TEST ORDER Performing Organization Address City/[facility]/ZIP Code Phon e Number [address] [address] [facility] (ABNORMAL) CBC with platelets (12/07/2016 2:41 PM CDT) [facility] Method Time Signature WBC 8.4 4.0 - 11.0 12/07/2016 [facility] OF 10e9/L 2:47 PM CDT [facility] RBC Count 3.10 (L) 3.8 - 5.2 12/07/2016 [facility] OF 10e12/L 2:47 PM CDT [facility] Hemoglobin 9.4 (L) 11.7 - 12/07/2016 [facility] 15.7 g/dL 2:47 PM CDT [facility] Hematocrit 28.2 (L) 35.0 - 12/07/2016 [facility] 47.0 % 2:47 PM CDT [facility] MCV 91 78 - 100 12/07/2016 [facility] OF fl 2:47 PM CDT [facility] MCH 30.3 26.5 - 12/07/2016 [facility] 33.0 pg 2:47 PM CDT [facility] MCHC 33.3 31.5 - 12/07/2016 [facility] 36.5 g/dL 2:47 PM CDT [facility] RDW 17.1 (H) 10.0 - 12/07/2016 [facility] 15.0 % 2:47 PM CDT [facility] Platelet Count 185 150 - 450 12/07/2016 [facility] OF 10e9/L 2:47 PM CDT [facility] Specimen Anatomical Collection Method Collection Time Receive d Time (Source) Location / / Volume Laterality Blood specimen 12/07/2016 2:41 PM 017 2:42 (specimen) CDT PM CDT Rossana Barker MD LAB - BLOOD ORDERABLES Performing Organization Address City/[facility] Code Phon e Number [address] [address] [facility] (ABNORMAL) Referral sensitivity (12/07/2016 1:27 PM CDT) Component Value Ref Test Analysis Performed At [facility] Range Method Time Signature Specimen Vaginal Rectal [...] MICRO GENERAL ORDERABL ES Performing Organization Address City/[facility]/ZIP Code Phon e Number INFECTIOUS DISEASES [address] [place] [address] DIAGNOSTIC LABORATORY, [facility] INFECTIOUS DISEASE [address] [place], [place] [address] DIAGNOSTIC LABORATORY documented in this encounter Visit Diagnoses Not on filedocumented in this encounter Administered Medications Inactive Administered Medications - up to 3 most recent administrations Medication Order MAR Action Action Date Dose Rate Site acetaminophen (TYLENOL) tablet Given 12/27/2016 12:40 PM SUBSTANCE ADDICTION COORDINATOR 975 mg 975 mg 975 mg, Oral, EVERY 8 HOURS, First dose on Fri12/25/16 at 0000, For 3 days, Do not use if patient has an active opioid/acetaminophen analgesic order for pain Maximum acetaminophen dose from all sources = 75 mg/kg/day not to exceed 4 grams/day., Post-procedure Given 12/27/2016 2:07 AM SUBSTANCE ADDICTION COORDINATOR 975 mg Given 12/26/2016 6:00 PM SUBSTANCE ADDICTION COORDINATOR 975 mg bacitracin ointment Given 12/27/2016 8:12 AM SUBSTANCE ADDICTION COORDINATOR Topical, 3 TIMES DAILY, First dose on Fri12/22/16 at 1400, Apply to areas of picking. Given 12/25/2016 1:01 PM SUBSTANCE ADDICTION COORDINATOR Given 12/24/2016 7:56 AM SUBSTANCE ADDICTION COORDINATOR benzocaine (ORAJEL MAXIMUM STRENGTH) 20 % gel Given 12/24/2016 9:19 AM SUBSTANCE ADDICTION COORDINATOR Mouth/Throat, 4 TIMES DAILY PRN, moderate pain, Starting on 12/23/16 at 0935, Apply to side of tongue near sore bisacodyl (DULCOLAX) Suppository 10 mg Given 12/25/2016 9:53 PM SUBSTANCE ADDICTION COORDINATOR 10 mg 10 mg, Rectal, DAILY PRN, constipation, Starting on Fri12/25/16 at 2148, Start POD 2, Post-procedure buprenorphine (SUBUTEX) sublingual table t 2 mg Given 12/27/2016 8:10 AM SUBSTANCE ADDICTION COORDINATOR 2 mg 2 mg, Sublingual, 5 TIMES DAILY, First dose on 12/07/16 at 1545 Given 12/27/2016 4:06 AM SUBSTANCE ADDICTION COORDINATOR 2 mg Given 12/26/2016 10:38 PM SUBSTANCE ADDICTION COORDINATOR 2 mg buPROPion (WELLBUTRIN SR) 12 hr tablet 1 50 mg Given 12/27/2016 8:10 AM SUBSTANCE ADDICTION COORDINATOR 150 mg 150 mg, Oral, DAILY, First dose on Fri12/17/16 at 0800, DO NOT CRUSH. Given 12/26/2016 8:23 AM SUBSTANCE ADDICTION COORDINATOR 150 mg Given 12/25/2016 7:52 AM SUBSTANCE ADDICTION COORDINATOR 150 mg diphenhydrAMINE (BENADRYL) capsule 25 mg Given 12/25/2016 7:23 PM SUBSTANCE ADDICTION COORDINATOR 25 mg 25 mg, Oral, EVERY 6 [...] emollient (VANICREAM) cream Given 12/24/2016 9:19 AM SUBSTANCE ADDICTION COORDINATOR Topical, EVERY 2 HOURS PRN, other, area of dry skin, Starting on Fri12/15/16 at 1239, Apply to areas of dry skin hydrocortisone (CORTAID) 1 % cream Given 12/27/2016 8:12 AM SUBSTANCE ADDICTION COORDINATOR Topical, 2 TIMES DAILY, First dose on Fri12/17/16 at 2115, Apply to upper arms and left abdomen Given 12/25/2016 8:09 AM SUBSTANCE ADDICTION COORDINATOR Given 12/23/2016 8:48 AM SUBSTANCE ADDICTION COORDINATOR Left Arm ibuprofen (ADVIL/MOTRIN) tablet 600 mg Given 12/27/2016 9:24 AM SUBSTANCE ADDICTION COORDINATOR 600 mg 600 mg, Oral, EVERY 6 HOURS RT, First dose (after last modification) on Fri12/26/16 at 0800, Ibuprofen to start after toradol finishes Given 12/27/2016 3:07 AM SUBSTANCE ADDICTION COORDINATOR 600 mg Given 12/26/2016 9:01 PM SUBSTANCE ADDICTION COORDINATOR 600 mg levothyroxine (SYNTHROID/LEVOTHROID) tablet Given 12/18 8:10 AM SUBSTANCE ADDICTION COORDINATOR 150 mcg 150 mcg 150 mcg, Oral, DAILY, First dose (after last modification) on Fri12/11/16 at 0800, Separate oral administration of iron- or calcium-containing products and levothyroxine by at least 4 hours. Given 12/26/2016 8:24 AM SUBSTANCE ADDICTION COORDINATOR 150 mcg Given 12/25/2016 7:52 AM SUBSTANCE ADDICTION COORDINATOR 150 mcg magic mouthwash suspension (diphenhydramine, lidocaine , aluminum-magnesium & simethicone) 10 mL, Swish & Swallow, EVERY 6 HOURS PA N, mouth sores, Starting on Fri12/24/16 at [...] 15-20 m g Given 12/27/2016 12:40 PM SUBSTANCE ADDICTION COORDINATOR 20 mg 15-20 mg, Oral, EVERY 3 HOURS PRN, moderate to severe pain, Starting on Fri12/25/16 at 1645, Patient is an opioid tolerant patient and will require higher narcotic doses due to buprenorphine. Given 12/27/2016 9:24 AM SUBSTANCE ADDICTION COORDINATOR 20 mg Given 12/27/2016 6:21 AM SUBSTANCE ADDICTION COORDINATOR 20 mg potassium chloride (KLOR-CON) Packet 20- [...] to opioids., Post-procedure Given 12/26/2016 9:01 PM SUBSTANCE ADDICTION COORDINATOR 2 tablets Given 12/26/2016 8:23 AM SUBSTANCE ADDICTION COORDINATOR 2 tablets simethicone (MYLICON) chewable tablet 80 mg Given 12/26/2016 1:54 PM SUBSTANCE ADDICTION COORDINATOR 80 mg 80 mg, Oral, 4 TIMES DAILY PRN, other, gas, Starting on Fri12/25/16 at 0352, Chew., Post-procedure Given 12/26/2016 6:36 AM SUBSTANCE ADDICTION COORDINATOR 80 mg Given 12/26/2016 12:31 AM SUBSTANCE ADDICTION COORDINATOR 80 mg sodium chloride (OCEAN) 0.65 % nasal spray Given 12/08 10:57 AM CDT 1 spray 1 spray 1 spray, Both Nostrils, EVERY 1 HOUR PRN, congestion, Starting on Fri12/08/16 at 1027 sodium chloride (PF) 0.9% PF flush 3 mL Given 12/26/2016 6:58 AM SUBSTANCE ADDICTION COORDINATOR 3 mLs 3 mL, Intracatheter, EVERY 1 HOUR PRN, line flush, for peripheral IV flush post IV meds, Starting on Fri12/25/16 at 0352, Post-procedure Given 12/26/2016 5:07 AM SUBSTANCE ADDICTION COORDINATOR 3 mLs Given 12/26/2016 1:52 AM SUBSTANCE ADDICTION COORDINATOR 3 mLs venlafaxine (EFFEXOR-ER) 24 hr tablet 15 0 mg Given 12/27/2016 8:10 AM SUBSTANCE ADDICTION COORDINATOR 150 mg 150 mg, Oral, DAILY WITH BREAKFAST, First dose (after last modification) on Fri12/09/16 at 0800, DO NOT CRUSH. Given 12/26/2016 8:23 AM SUBSTANCE ADDICTION COORDINATOR 150 mg Given 12/25/2016 11:12 AM SUBSTANCE ADDICTION COORDINATOR 150 mg documented in this encounter Active and Recently Administered Medications Times are shown in SUBSTANCE ADDICTION COORDINATOR. Scheduled Medication Order 12/25/2016 12/26/2016 12/27/2016 acetaminophen (TYLENOL) tablet 975 mg 0218 (Auto Hold - Provider: Orders Generic Provider - Reason: Transfer to a procedural area)0247 (Given - Provider: Lisa Rubio, GENARO)0306 (Unhold - Provider: Orders Generic Provider)0751 (Given - P rovider: Fransisca Gates RN) 0822 (Given - Provider: Hyacinth Wolf, GENARO)1800 (Given - Provider: Gudelia Clemons RN) 0207 (Given - Provider: Lucia Cotton, GENARO)1240 (Given - Provider: Brenna Verduzco, GENARO) 975 mg, Oral, EVERY 8 HOURS, First dose on Fri12/25/16 at 0000, For 3 days, Do not use if patient has an active opioid/acetaminophen analgesic order for pain Maximum acetaminophen dose from all sources 1546 (Given - Provider: Maria Antonia Hidalgo, RN)2335 (Given - Provider: Yessenia Julian, GENARO) = [...] Orders Generic Provider)0332 (Canceled Entry - Provider: Khleo Elmore RN)0404 (Given - Provider: Khloe Elmore [...] Hidalgo, GENARO)1642 (Given - Provider: Maria Antonia Hidalgo RN)2302 (Given - Provider: Yessenia Julian RN) buPROPion (WELLBUTRIN SR) 12 hr tablet 150 mg 0218 (Au to Hold - Provider: Orders Generic Provider - Reason: Transfer to a procedural area)0306 (Unhold - Provider: Orders Generic Provider)0752 (Given - Provider: Fransisca Thapa, GENARO) 0823 (Given - Provider: Hyacinth Wolf RN) 0810 (Given - Provider: Brenna Verduzco, GENARO) 150 mg, Oral, DAILY, First dose on Fri12/17/16 at 0800, DO NOT CRUSH. clindamycin (CLEOCIN) infusion 900 mg () 0505 ( Canceled Entry - Provider: Khloe Elmore RN)0619 (New Bag - Provider: Khloe Elmore RN)133 (New Bag - Provider: Maria Antonia Hidalgo RN) 900 mg, Intravenous, EVERY 8 HOURS, Firs t dose on Fri12/25/16 at 0430, For 24 hours, Indications: Perioperative Pharmacoprophylaxis gentamicin (GARAMYCIN) 120 mg in NaCl 0. 9 % 100 mL intermittent infusion (COMPLETED) 0501 (New Bag - Provider: Khloe Elmore RN)1218 (New Bag - Provider: Maria Antonia Hidalgo, GENARO)2033 (New Bag - Provider: Yessenia Julian RN) [...] HYDROmorphone (DILAUDID) Loading Dose ad ministered from MOISTURE CONDITIONER OPERATOR 0.2-0.3 mg (COMPLETED) 0336 (Given - Provider: Khloe Elmore RN) 0.2-0.3 mg, Intravenous, MOISTURE CONDITIONER OPERATOR LOADING DOS E, Fri12/25/16 at 0000, For 1 dose, LOADING DOSE (bolus) with start of MOISTURE CONDITIONER OPERATOR. DO NOT GIVE IF A LOADING BOLUS DOSE HAS ALREADY BEEN GIVEN. (If loading dose not given from MOISTURE CONDITIONER OPERATOR, bar code scan must be overridden to chart dose)., Pos t-procedure HYDROmorphone (DILAUDID) MOISTURE CONDITIONER OPERATOR 1 mg/mL (CANCELED) 0100 ( New Syringe/Cartridge - Provider: Lisa Rubio RN)0218 (Auto Hold - Provider: Orders Generic Provider - Reason: Transfer to a procedural area)0253 (Unhold - Provider: Marleny Kang MD) MOISTURE CONDITIONER OPERATOR dose (mg): 0.2, Max MOISTURE CONDITIONER OPERATOR dose (mg): 0 .3, Lockout Interval (min): 10 minutes, MOISTURE CONDITIONER OPERATOR Continuous Rate (mg/hr): CONTINUOUS RATE IS NOT RECOMMENDED FOR OPIOID NAIVE PATIENTS, Hour Limit (mg): 1.8, First dos e on Fri12/25/16 at 0000, Do NOT give an y additional opioids while on MOISTURE CONDITIONER OPERATOR. When transitioning from MOISTURE CONDITIONER OPERATOR to oral opioids MAY give first oral opioid dose 30 minutes PRIOR to discontinuation of MOISTURE CONDITIONER OPERATOR., Intravenous, Post-procedure HYDROmorphone (DILAUDID) MOISTURE CONDITIONER OPERATOR 1 mg/mL (CANCELED) 0454 ( Rate/Dose Verify - Provider: Khloe Elmore RN)0508 (Canceled Entry - Provider: Khloe Elmore, GENARO)0624 (Shift Total - Provider: Khloe Elmore RN) MOISTURE CONDITIONER OPERATOR dose (mg): 0.2, Max MOISTURE CONDITIONER OPERATOR dose (mg): 0 .3, Lockout Interval (min): 10 minutes, MOISTURE CONDITIONER OPERATOR Continuous Rate (mg/hr): CONTINUOUS RATE IS NOT RECOMMENDED FOR OPIOID NAIVE PATIENTS, Hour Limit (mg): 2, First dose on Fri12/25/16 at 0430, Do NOT give any additional opioids while on MOISTURE CONDITIONER OPERATOR. When transitioning from MOISTURE CONDITIONER OPERATOR to oral opioids MAY give first oral opioid dose 30 minutes PRIOR to discontinuation of MOISTURE CONDITIONER OPERATOR., Intravenous, Post-procedure HYDROmorphone (DILAUDID) MOISTURE CONDITIONER OPERATOR 1 mg/mL (CANCELED) 0845 ( Canceled Entry - Provider: Fransisca Gates RN)0901 (Rate/Dose Verify - Provider: Fransisca Gates RN)1350 (Stopped - Provider: Maria Antonia Hidalgo RN) MOISTURE CONDITIONER OPERATOR dose (mg): 0.3, Max MOISTURE CONDITIONER OPERATOR dose (mg): 0 .5, Lockout Interval (min): 10 minutes, MOISTURE CONDITIONER OPERATOR Continuous Rate (mg/hr): 0.3, MAX Continuous Rate (mg/hr): 0.3, Hour Limit (mg): 3.3, First dose on Fri12/25/16 at 084 5, Do NOT give additional opioids orders unless requested by provider., Intravenous ibuprofen (ADVIL/MOTRIN) tablet 600 mg 0 823 (Given - Provider: Hyacinth oWlf RN)1351 (Given - Provider: Hyacinth Wolf RN)2101 [...] 8.6-50 MG per ta blet 1-2 tablet 804 (Not Given - Provider: Fransisca Gates RN - Reason: Patient/family refused)2042 (Given - Provider: Yessenia Julian, GENARO) 0823 (Given - Provider: Hyacinth Wolf RN)2100 [...] Antonia Hidalgo RN)2033 (Given - Provider: Yessenia Julian, GENARO) 022 (Given - Provider: Lucia Cotton, GENARO)0635 [...] Hidalgo, GENARO) 0823 (Given - Provider: Hyacinth Wolf, GENARO) 0810 (Given - Provider: Brenna Verduzco, GENARO) 150 mg, Oral, DAILY WITH BREAKFAST, Firs t dose on Fri12/09/16 at 0800, DO NOT CRUSH. Continuous Medication Order 12/25/2016 12/26/2016 12/27/2016 lactated ringers infusion (CANCELED) 0506 (Rate/Dose C hange - Provider: Khloe E Ramírez, RN)0618 (New Bag - Provider: Khloe Elmore RN)1740 (New Bag - Provider: Maria Antonia Hidalgo, RN) at 125 mL/hr, Intravenous, CONTINUOUS, S tarting [...] Lucia Cotton RN)0657 (Given - Provider: Lucia Cotton, GENARO)0834 (Given - Provider: Hyacinth Wolf RN) 0.2-0.3 mg, Intravenous, EVERY 1 HOUR PA N, Starting Zoe 12/26/16 at 0407, Until Zoe 12/26/16 at 0911, moderate to severe pain, Give IV Push undiluted up to 4 mg. Each 2mg over 2-5 minutes. HYDROmorphone (PF) (DILAUDID) injection 0.3-0.5 mg (CA NCELED) 164 (Given - Provider: Maria Antonia Hidalgo, GENARO)182 (Given - Provider: Maria Antonia Hidalgo, GENARO)194 (Given - Provider: Maria Antonia Hidalgo RN)2128 (Given - Provider: Yessenia Julian RN)223 (Given [...] RN)2022 (Given - Provider: Yessenia Julian RN) 0229 (Given - Provider: Lucia Cotton RN) 30 [...] dry skin, sor eness, Starting Fri12/25/16 at 035, Apply to sore nipples after feedings, Post-procedure [...] PRN , opioid reversal, Starting Fri12/25/16 at 035, For respiratory rate LESS than or EQUAL [...] Antonia Hidalgo, GENARO)2023 (Given - Provider: Yessenia Julian RN)2335 (Given - Provider: Yessenia Julian RN) 0302 (Given - Provider: Lucia Cotton RN)0601 (Given - Provider: Lucia Cotton, GENARO)0911 (Given - Provider: Hyacinth Wolf RN)1207 (Given - Provider: Hyacinth Wolf RN)1507 (Given - Provider: Hyacinth Wolf RN) 0307 (Given - Provider: Lucia Cotton, GENARO)0621 (Given - Provider: Lucia Cotton, GENARO)0924 (Given - Provider: Brenna E Salzer, RN)1240 (Given - Provider: Brenna Verduzco RN) [...] Gates RN)1826 (Given - Provider: Maria Antonia Hidalgo RN) 0031 (Given - Provider: Lcuia Cotton RN)0636 (Given - Provider: Lucia Cotton [...] Lucia Cotton RN)0507 (Given - Provider: Lucia Cotton RN)0658 (Given - Provider: Lucia Cotton, RN) 3 mL, Intracatheter, EVERY 1 HOUR [...]
Post-procedure documented in this encounter Care Teams Beauty Artist Relationship Specialty Start Date End Date Luis Fernando Magana PCP - General Family Practice 12/07/16 01/19/18 [place] [address] documented as of this encounter
--- OUTSIDE RECORDS SUMMARY | 2021-11-28 13:49 | XMS_ITS | Encounter Summary ---
:1980 Author Organization [place] Address [address] [place] [address] Care Team Providers Name Role Phone Clinic, [facility] Primary Care Provide r Encounter Details Date Type Department Care Team Description 09/10/2016 Hospital Encounter [facility] Lela Patel MD [address] [id number] Supervision of Maternal Lex Woods MD [address] [place], [place] [address]E [address] [address] high-risk , Medicine Center [facility] [address] [place] [address] Social History Tobacco Use Types Packs/Day Years Used Date Smoking Tobacco: Every Day Cigarettes 0.1 10 Smokeless Tobacco: Never Comments: 5 cigarettes a day Alcohol Use Standard Drinks/Week Comments Yes 0 (1 standard drink = 0.6 oz pure Stoppe d after found out alcohol) Sex Assigned at Date Recorded Female 01/14/2020 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 NO: [id number] Referring ??MD: RICHARD STEIN Site: [facility] Dairy Manufacturing Technologist: Mayela Teague RD MS : 1980 Age: [...] BIOMETRY CRL ?82.6 ?mm ?14w 1d ? [facility] ?147 ? bpm ? ANATOMY The following [...] Pat. Name:Elizabeth REDDY Date:09/10 12:12pm Pat. NO: [id number] [facility]Mayela Teague RDMS :1980Age:35 INDICATION Vaginal bleeding , [...] uns cheduled ultrasound with the patient. Her [facility] consultation is scheduled in 2 days at [...] long without fun neling. Lashawn Patel MD [facility] US ORDERABLES documented in this encounter Visit Diagnoses Diagnosis Supervision of high-risk , firs t trimester documented in this encounter Care Teams Signs And Displays Salesperson Relationship Specialty Start Date End Date Clinic, [facility] PCP - General 07/14/16 12/06/[address] [place] [address] documented as of this encounter
--- OUTSIDE RECORDS SUMMARY | 2021-11-28 13:49 | XMS_ITS | Encounter Summary ---
:1980 Author Organization [place] Address [address] [facility] [place] [address] Care Team Providers Name Role Phone Clinic, [facility] Primary Care Provide r Reason for Visit Reason Onset Date Comments Medication Request 11/28/2016 Bridge for Subutex, Wellbutrin Encounter Details Date Type Department Care Team Description 11/28/2016 Telephone [facility] Edgar Alfredo, Med ication Request Clinic Ashly VÁSQUEZ (Bridge for Subutex, [address] [place] Wellbutrin ) [address] [place] [phone] (Wo rk) Social History Tobacco Use Types Packs/Day Years Used Date Smoking Tobacco: Every Day Cigarettes 0.1 10 Smokeless Tobacco: Never Comments: 5 cigarettes a day Alcohol Use Standard Drinks/Week Comments Yes 0 (1 standard drink = 0.6 oz pure Stoppe d after found out alcohol) Sex Assigned at Date Recorded Female 01/14/2020 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 Dec 23, 2016 9:30 AM BUSH AND VINE FRUIT CROP FARMER Return Visit with Edgar Alfredo MD [facility] ([facility] ?? [address] [facility] [address] Controlled substance agreement on file: No. Documentation in problem list reviewed: Yes Processing: Call/fax RX monitoring program ([place]) reviewed: BAKERY MANAGER reviewed- no concerns [place] profile: [email or web address] Santosh Pyle RN Telephone Encounter - Mark Roldan - 11/28/2016 2:20 PM CDT Pt called she will need a Subutex bridge until her next appt on 12/23, pt stated she's out of med. Pt want a refill on Wellbutrin, also pt want to know if Dr. Alfredo can prescribe her something for heartburn. Pt no showed her last appt on 11/26. Pt cell # [phone] Pt house # [phone] buprenorphine (SUBUTEX) 2 MG SUBL sublingual tablet Last Written Prescription Date: 10/10/16 Last Fill Quantity: 140, # refills: 1 Last Office Visit with [facility] or Health prescribing provider: 10/10/16 Next 5 appointments (look out 90 days) Dec 23, 2016 9:30 AM BUSH AND VINE FRUIT CROP FARMER Return Visit with Edgar Alfredo MD [facility] ([facility]) [address] [facility] [phone] WELLBUTRIN SR 150 MG 12 hr tablet Last Written Prescription Date: Last Fill Quantity: 60; # refills: 1 Last Office Visit with [facility], [facility] or [facility] prescribing provider: 10/10/16 Next 5 appointments (look out 90 days) Dec 23, 2016 9:30 AM BUSH AND VINE FRUIT CROP FARMER Return Visit with Edgar Alfredo MD [facility] ([facility]) [address] [place], [place] [address] [address] [facility] [phone] Last PHQ-9 score on record= PHQ-9 SCORE 06/21/2013 Total Score 15 Lab Results Component Value Date AST 10/10/2016 Lab Results Component Value Date ALT 10/10/2016 documented in this encounter Plan of Treatment Upcoming Encounters Date Type Specialty Care Team Description 11/29/2021 Office Visit Wound Care Luis Camara DPM [address] [place] [address] (Wo rk) 01/21/2022 Office Visit Gastroenterology Juanis Levi [address] [place] [phone] Luis Fernando Miles MD 516 [facility] [address] [place] [address] documented as of this encounter Visit Diagnoses Diagnosis Gastroesophageal reflux disease, esophag itis presence not specified - Primary Uncomplicated opioid dependence (H) Opioid type dependence, unspecified Major depressive disorder, recurrent epi sode, moderate (H) Major depressive disorder, recurrent epi sode, moderate documented in this encounter Care Teams Auctioneer Art Relationship Specialty Start Date End Date Clinic, [facility] PCP - General 07/14/16 12/06/[address] [place], [place] [address] [address] documented as of this encounter
--- OUTSIDE RECORDS SUMMARY | 2021-11-28 13:49 | XMS_ITS | Encounter Summary ---
:1980 Author Organization [place] Address [address] [facility] [place] [address] Care Team Providers Name Role Phone Clinic, [facility] Primary Care Provide r Reason for Visit Reason Onset Date Comments No Show 09/12/2016 x3 for MFM appt Encounter Details Date Type Department Care Team Description 09/12/2016 Telephone [facility] Maricruz Pina No Kristen w (x3 for MFM Maternal Medicine appt ) [facility] [address] [place] [address] Social History Tobacco Use Types Packs/Day Years Used Date Smoking Tobacco: Every Day Cigarettes 0.1 10 Smokeless Tobacco: Never Comments: 5 cigarettes a day Alcohol Use Standard Drinks/Week Comments Yes 0 (1 standard drink = 0.6 oz pure Stoppe d after found out alcohol) Sex Assigned at Date Recorded Female 01/14/2020 10:57 AM MANAGER PROPOSAL documented as of this encounter Miscellaneous Notes Telephone Encounter - Maricruz Pina - 09/12/2016 3:46 PM CDT MFM received referral from [facility] [place], [place]. Patient has been scheduled threetimes for appointments with our clinic and has no showed for all three. Removing orders. Referring clinic notified that a new referral will need to placed. Wool Grower Maricruz Pina documented in this encounter Plan of Treatment Upcoming Encounters Date Type Specialty Care Team Description 11/29/2021 Office Visit Wound Care Luis Camara, [place] [address] [place], [place] [phone] (Wo rk) 01/21/2022 Office Visit Gastroenterology Juanis Levi [address] [place] [phone] Luis Fernando Miles MD 516 [facility] [address] [place] [address] documented as of this encounter Visit Diagnoses Not on filedocumented in this encounter Care Teams Wrapper Hands Sprayer Relationship Specialty Start Date End Date Clinic, [facility] PCP - General 07/14/16 12/06/[address] [place] [address] documented as of this encounter
--- OUTSIDE RECORDS SUMMARY | 2021-11-28 13:49 | XMS_ITS | Encounter Summary ---
:1980 Author Organization [place] Address [address] [place] [address] Care Team Providers Name Role Phone Clinic, [facility] Primary Care Provide r Reason for Visit Reason Comments Ultrasound L2/TV-LLP and h/o uterine ru pture, PTD Encounter Details Date Type Department Care Team Description 10/31/2016 Office Visit [facility] Ilana Patel MD [address] [facility] [address] [place], [place] [phone] Suspected anomaly, antepartum, not applicable or unspecified fetus (Primary Dx); Maternal Italia Galarza DO [address] [facility] [address] [place] [address] Placenta previa, second trimester; Medicine Center H/O delivery, currently , second trimester [place] [address] [place], [place] [address] Social History Tobacco Use Types Packs/Day Years Used Date Smoking Tobacco: Every Day Cigarettes 0.1 10 Smokeless Tobacco: Never Comments: 5 cigarettes a day Alcohol Use Standard Drinks/Week Comments Yes 0 (1 standard drink = 0.6 oz pure Stoppe d after found out alcohol) Sex Assigned at Date Recorded Female 01/14/2020 10:57 AM ELDERLY COMPANION documented as of this encounter Progress Notes Italia Galarza DO - 10/31/2016 2:00 PM CDT Please see Imaging tab under Chart Review for details of today's US. Italia Galarza DO Maternal- Medicine documented in this encounter Plan of Treatment Upcoming Encounters Date Type Specialty Care Team Description 11/29/2021 Office Visit Wound Care Luis Camara DPM [address] [place], [place] [phone] (Wo rk) 01/21/2022 Office Visit Gastroenterology Juanis Levi [address] [place] [address] Luis Fernando Miles MD 516 [facility] [address] [place], [place] [phone] documented as of this encounter Visit Diagnoses Diagnosis Suspected anomaly, antepartum, not applicable or unspecified fetus - Primary Placenta previa, second trimester H/O delivery, currently , second trimester documented in this encounter Care Teams Project Construction Assistant Manager Relationship Specialty Start Date End Date Clinic, [facility] PCP - General 07/14/16 12/06/[address] [place] [address] documented as of this encounter
--- OUTSIDE RECORDS SUMMARY | 2021-11-28 13:49 | XMS_ITS | Encounter Summary ---
:1980 Author Organization [place] Address [address] [facility] [place] [address] Care Team Providers Name Role Phone Clinic, [facility] Primary Care Provide r Reason for Visit Reason Comments Addiction Problem Encounter Details Date Type Department Care Team Description 10/10/2016 Office Visit [facility] Edgar Alfredo Uncomplic ated opioid dependence (H); Clinic Ashly Gauthier MD Major depressive disorder, recurrent epi sode, moderate (H) [address] [place] [address] [place] [phone] Social History Tobacco Use Types Packs/Day Years Used Date Smoking Tobacco: Every Day Cigarettes 0.1 10 Smokeless Tobacco: Never Comments: 5 cigarettes a day Alcohol Use Standard Drinks/Week Comments Yes 0 (1 standard drink = 0.6 oz pure Stoppe d after found out alcohol) Sex Assigned at Date Recorded Female 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 [place] Board [employer] Data Base Reviewed: YES; [...] BREAST SURGERY ABcess drained ??? SECTION ??? SHEET WRITER SURGERY ??? ORTHOPEDIC SURGERY ??? 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 USE OF HIGH RISK MEDICATION High Risk [...] visit in 2 MONTHS Edgar Alfredo MD [facility] documented in this encounter Plan of Treatment Upcoming Encounters Date Type Specialty Care Team Description 11/29/2021 Office Visit Wound Care Luis Camara DPM [address] [place] [address] (Wo rk) 01/21/2022 Office Visit Gastroenterology Juanis Levi [address] [place] [address] Luis Fernando Miles MD 516 [facility] [address] [place], [place] [phone] documented as of this encounter Procedures Procedure Name Priority Date/Time Associated Diagnosis Comme nts URINE DRUGS OF Routine 10/10/2016 3:06 PM Uncomplicated opioid Results for this ABUSE SCREEN PANEL CDT dependence (H) procedu re are in 13 the results section. documented in this encounter Results (ABNORMAL) Urine Drugs of Abuse Screen Panel 13 (10/10/2016 3:06 PM CDT) [facility] Method Time Signature Cannabinoids Not Detected NDET^Not 10/10/2016 LAB (61-bcs-3-carbox Detected 3:17 PM CDT y-9-THC) ng/mL Comment: Cutoff for a negative cannabino id is 50 ng/mL or less. Phencyclidine Not Detected NDET^Not Detected 10/10/2016 3:17 PM LAB (Phencyclidine) ng/mL CDT Comment: Cutoff for a negative PCP is 25 ng/mL or less. Cocaine (Benzoylecgonine) Not Detected NDET^Not Detected 0 10/10/2016 3:17 PM LAB ng/mL CDT Comment: Cutoff [...] less. Oxycodone (Oxycodone) Not Detected NDET^Not Detected 017 3:17 PM LAB ng/mL CDT Comment: Cutoff [...] be used for medical purposes only. Order [id number] for confirmation or indivi dual confirmation tests to [facility]. Specimen Anatomical Collection Method Collection Time Receive d Time (Source) Location / / Volume Laterality Urine specimen 10/10/2016 3:06 PM 017 3:07 (specimen) CDT PM CDT Edgar Alfredo MD LAB - URINE ORDERABLES Performing Organization Address City/State/ZIP [place] [address] [facility] [address] [address] LAB documented in this encounter Visit Diagnoses Diagnosis Uncomplicated opioid dependence (H) Opioid type dependence, unspecified Major depressive disorder, recurrent epi sode, moderate (H) Major depressive disorder, recurrent epi sode, moderate documented in this encounter Care Teams Compliance Technician Relationship Specialty Start Date End Date Clinic, [facility] PCP - General 07/14/16 12/06/[address] [place] [address] documented as of this encounter
--- OUTSIDE RECORDS SUMMARY | 2021-11-28 13:49 | XMS_ITS | Encounter Summary ---
:1980 Author Organization [place] Address [facility] [place] [address] Care Team Providers Name Role Phone Clinic, [facility] Primary Care Provide r Reason for Visit Reason Comments Rule Out Labor Encounter Details Date Type Department Care Team Description 12/01/2016 Hospital Encounter [facility], [facility] Birthplace MD [place] [address] [facility] [address] [address] [facility] [address] [place], [place] [phone] (Wo rk) Social History Tobacco Use Types Packs/Day Years Used Date Smoking Tobacco: Every Day Cigarettes 0.1 10 Smokeless Tobacco: Never Comments: 5 cigarettes a day Alcohol Use Standard Drinks/Week Comments Yes 0 (1 standard drink = 0.6 oz pure Stoppe d after found out alcohol) Sex Assigned at Date Recorded Female 01/14/2020 10:57 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 Activity: Call your doctor or nurse vacuum pan operator if your baby is moving less [...] 12:48 AM CDT [facility]: [facility] Reason for maternal/ assessment per [...] Visit Wound Care Luis Camara DPM [address] [place], [place] [phone] (Wo rk) 01/21/2022 Office Visit Gastroenterology Juanis Levi [address] [place] [address] Luis Fernando Miles MD [address] [phone] documented as of this encounter Visit Diagnoses Not on filedocumented in this encounter Care Teams Radiological Technician Relationship Specialty Start Date End Date Clinic, [facility] PCP - General 07/14/16 12/06/[address] [place], [place] [address], [place] [address] documented as of this encounter
--- OUTSIDE RECORDS SUMMARY | 2021-11-28 13:49 | XMS_ITS | Encounter Summary ---
:1980 Author Organization [place] Address [address] [place] [address] Care Team Providers Name Role Phone Clinic, [facility] Primary Care Provide r Encounter Details Date Type Department Care Team Description 10/31/2016 Hospital Encounter [facility] Lela Patel MD [address] [facility] [address] [place], [place] [id number] Drug dependence Maternal Italia Galarza DO [address] [facility] [address] [place] [address] affecting Medicine Center in [facility] [address] [place] [address] Social History Tobacco Use Types Packs/Day Years Used Date Smoking Tobacco: Every Day Cigarettes 0.1 10 Smokeless Tobacco: Never Comments: 5 cigarettes a day Alcohol Use Standard Drinks/Week Comments Yes 0 (1 standard drink = 0.6 oz pure Stoppe d after found out alcohol) Sex Assigned at Date Recorded Female 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/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 documented as of this encounter Medications at Time of Discharge Medication Sig Dispensed Refills Start Date End Date buprenorphine (SUBUTEX) 2 Place 1 tablet (2 140 tablet 1 11/29/2016 MG SUBL sublingual mg) under the tabletIndications: tongue 5 times Uncomplicated opioid daily dependence (H) buprenorphine Place 1 Film under 25 Film 0 06/13/2016 05/ HCl-naloxone HCl the tongue 5 times (SUBOXONE) [...] Visit Wound Care Luis Camara DPM [address] [place] [address] (Wo rk) 01/21/2022 Office Visit Gastroenterology Juanis Levi [address] [place] [address] Luis Fernando Miles MD [address] [facility] [address] [place] [address] documented as of this encounter Procedures Procedure Name Priority Date/Time Associated Comments Diagnosis [facility] Routine 10/31/2016 2:27 PM Drug dependenc e Results for this SINGLE CDT affecting procedur e are in in second trimester the resu lts section. documented in this encounter Results [facility] US Comprehensive Single (10/31/2016 2:27 PM [...] STEPHANI REDDY Study Date: 1:32pm Pat. NO: [id number] Referring ??: LUDY RODRIGUEZ Site: [facility] Proposal Consultant: Geovanna Hassan RDMS : 1980 Age: 36 [...] 1 lb 0 ?oz Calculated by ?Hadlock ([id number]) Head / Face / Neck Biometry: Infant And Toddler Teacher ?3.6 ?mm ? Nasal bone ?6.5 ?mm [...] be vi sualized: Heart / Thorax ?RVOT. 4-tmqbud-obdinei view. Gender: male. MATERNAL STRUCTURES Cervix ?Visualized, [...] but not detected. Procedure Note Italia Galarza, - 10/31/2016Format ting of this note might be different from the original. Comprehensive Pat. Name:Elizabeth REDDY Date:10/31 1:32pm Pat. NO: [id number] MD:JOSE ALFREDO RODRIGUEZ Site:[facility] Madisongrapher:Geovanna Hassan RDMS :1980Age:36 INDICATION History of delivery, [...] 1 lb 0 oz Calculated by Flora ([id number]) Head / Face / Neck Biometry: Infant And Toddler Teacher 3.6 mm Nasal bone 6.5 mm Amniotic [...] be vi sualized: Heart / Thorax RVOT. 9-iyclhv-eoeefxr vi ew. Gender: male. MATERNAL STRUCTURES Cervix [...] 6) Marginal placenta previa. Lashawn Patel MD [facility] US ORDERABLES documented in this encounter Visit Diagnoses Diagnosis Drug dependence affecting in s econd trimester documented in this encounter Care Teams Inserting Machine Operator Relationship Specialty Start Date End Date [facility], [facility] PCP - General 07/14/16 12/06/[address] [place] [address] documented as of this encounter
--- OUTSIDE RECORDS SUMMARY | 2021-11-28 13:49 | XMS_ITS | Encounter Summary ---
:1980 Author Organization [place] Address [address] [place] [address] Care Team Providers Name Role Phone Clinic, [facility] Primary Care Provide r Reason for Visit - Closed Specialty Diagnoses / Procedures Referred By Contact Refer red To Contact Diagnoses Supervision of high-risk , first trimester Ur Maternal Med [address] [place], [place] [address] Referral ID Status Reason Start Date Expiration Date Visits Requ ested Visits Authorized [id number] Closed 08/22/2016 08/22/2017 1 1 Encounter Details Date Type Department Care Team Description 09/03/2016 Office Visit [facility] Ilana Patel MD [address] [address] Canceled (Patient) Maternal Petrona Barone DO [address] [facility] [address] [place] [address] Medicine Center [place] [address] [place], [place] [address] Social History Tobacco Use Types Packs/Day Years Used Date Smoking Tobacco: Every Day Cigarettes 0.1 10 Smokeless Tobacco: Never Comments: 5 cigarettes a day Alcohol Use Standard Drinks/Week Comments Yes 0 (1 standard drink = 0.6 oz pure Stoppe d after found out alcohol) Sex Assigned at Date Recorded Female 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 documented as of this encounter Plan of Treatment Upcoming Encounters Date Type Specialty Care Team Description 11/29/2021 Office Visit Wound Care Luis Camara DPM [address] [place] [address] (Wo rk) 01/21/2022 Office Visit Gastroenterology Juanis Levi [address] [place] [phone] Luis Fernando Miles MD [address] [facility] [address] [place], [place] [phone] documented as of this encounter Visit Diagnoses Not on filedocumented in this encounter Care Teams Music Instructor Relationship Specialty Start Date End Date Clinic, [facility] PCP - General 07/14/16 12/06/[address] [place] [address] documented as of this encounter
--- OUTSIDE RECORDS SUMMARY | 2021-11-28 13:49 | XMS_ITS | Encounter Summary ---
:1980 Author Organization [place] Address [address] [facility] [place] [address] Care Team Providers Name Role Phone Clinic, [facility] Primary Care Provide r Encounter Details Date Type Department Care Team Description 09/17/2016 Orders Only [facility] Anabelle Thomas High -risk , Maternal GENARO [facility] Medicine Center (Primary Dx) [place] [address] [place], [place] [address] Social History Tobacco Use Types Packs/Day Years Used Date Smoking Tobacco: Every Day Cigarettes 0.1 10 Smokeless Tobacco: Never Comments: 5 cigarettes a day Alcohol Use Standard Drinks/Week Comments Yes 0 (1 standard drink = 0.6 oz pure Stoppe d after found out alcohol) Sex Assigned at Date Recorded Female 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/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 documented as of this encounter Plan of Treatment Upcoming Encounters Date Type Specialty Care Team Description 11/29/2021 Office Visit Wound Care Luis Camara DPM [address] [place] [address] (Wo rk) 01/21/2022 Office Visit Gastroenterology Juansi Levi [address] [place] [address] Luis Fernando Miles MD [address] [facility] [address] [place] [address] documented as of this encounter Visit Diagnoses Diagnosis High-risk , first trimester - P rimary documented in this encounter Care Teams Precision Assembler Relationship Specialty Start Date End Date Clinic, [facility] PCP - General 07/14/16 12/06/[address] [place] [id number] documented as of this encounter
--- OUTSIDE RECORDS SUMMARY | 2021-11-28 13:49 | XMS_ITS | Encounter Summary ---
:1980 Author Organization [place] Address [address] [facility] [place] [place] [address] Care Team Providers Name Role Phone Clinic, [facility] Primary Care Provide r Reason for Visit Reason Comments Consult MFM- hx of uterine rupture/m iscarriage at 19 weeks/AMA/subutex/ Ultrasound 2/3 complete/tv- hx of uteri ne rupture/miscarrige at 19 weeks/AMA/subutex - Closed Specialty Diagnoses / Procedures Referred By Contact Refer red To Contact Diagnoses Supervision of high-risk , first trimester Ur Maternal Med [address] [place], [place] [address] Referral ID Status Reason Start Date Expiration Date Visits Requ ested Visits Authorized [id number] Closed 08/22/2016 08/22/2017 1 1 Encounter Details Date Type Department Care Team Description 10/01/2016 Office Visit [facility] Amanda Drug depen dence affecting in second trimester (Primary Dx); Maternal MD GÉNESIS Hardin (advanced maternal age) multigravida 35+, second trimester; Medicine Center [address] History of loss in prior , currently in second trimester [facility] [address] [place], [place] [phone] Social History Tobacco Use Types Packs/Day Years Used Date Smoking Tobacco: Every Day Cigarettes 0.1 10 Smokeless Tobacco: Never Comments: 5 cigarettes a day Alcohol Use Standard Drinks/Week Comments Yes 0 (1 standard drink = 0.6 oz pure Stoppe d after found out alcohol) Sex Assigned at Date Recorded Female 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 HPI: Stephani [...] months due complications from congenital heart defects. Her3rd/4th/5th pregnancies were uncomplicated FT . Her 6th [...] Term NINA 3 Term NINA 2 Term JAN 17 Term JAN PMH: Past Medical History: Diagnosis Date ??? Anxiety ??? Chronic hepatitis C (H) ??? Depressive disorder ??? Hypothyroid ??? Suboxone maintenance treatment complicating , antepartum (H) PSH: Past Surgical History: Procedure Laterality Date ??? BREAST SURGERY ABcess drained ??? SECTION ??? WAFER FABRICATION OPERATOR SURGERY ??? ORTHOPEDIC SURGERY ??? THORACIC SURGERY [...] procedure-related risk of loss of 1/300 - 1500. The patient declined all further aneuploidy [...] weekly BPP is reasonable. Recommend that Stephani ontinue to receive fulldaily buprenorphine dose including the [...] I spent a total of 30 minutes wtgp-sf-owfv with Stephani King during today's office visit. Over 50% of this time was spent counseling the patient and/or coordinating care regarding complicated by prior medical and OB history as noted above . See note for details. Lashawn Patel Anabelle Thomas, GENARO - 10/01/2016 11:00 AM CDT Pt [facility] to [facility] for assessment and evaluation of her [...] for a 2/3 us, TV usand a [facility] consult. See epic for today's us findings which were reviewed [...] Has no further questions at this time. Dc stable. Anabelle Thomas RN documented in this encounter Plan of Treatment Upcoming Encounters Date Type Specialty Care Team Description 11/29/2021 Office Visit Wound Care Luis Camara DPM [address] [place], [place] [phone] (Wo rk) 01/21/2022 Office Visit Gastroenterology Juanis Levi [address] [place] [address] Luis Fernando Miles MD [address] [address] documented as of this encounter Results [facility] US Comprehensive Single (10/31/2016 2:27 PM CDT) [...] 10/31/2016 2:39 PM CDT Comprehensive Pat. Name: FRANSISCO KINGDI Study Date: 1:32pm Pat. NO: [id number] Referring ??: LUDY RODRIGUEZ Site: [facility] Data Entry Machine Operator: Geovanna Hassan RDMS : 1980 Age: 36 [...] 1 lb 0 ?oz Calculated by ?Hadlock ([id number]) Head / Face / Neck Biometry: Peeler Operator ?3.6 ?mm ? Nasal bone ?6.5 ?mm [...] be vi sualized: Heart / Thorax ?RVOT. 9-yvtsra-okhxhho view. Gender: male. MATERNAL STRUCTURES Cervix ?Visualized, [...] different from the original. Comprehensive Pat. Name:Elizabeth KING Date:10/31 1:32pm Pat. NO: [id number] MD:JOSE ALFREDO RODRIGUEZ [facility]Geov[facility] Hassan RDMS :1980Age:36 INDICATION History of delivery, [...] 1 lb 0 oz Calculated by Flora ([id number]) Head / Face / Neck Biometry: Peeler Operator 3.6 mm Nasal bone 6.5 mm Amniotic [...] be vi sualized: Heart / Thorax RVOT. 2-ykpkva-ligkkyz vi ew. Gender: male. MATERNAL STRUCTURES Cervix [...] 6) Marginal placenta previa. Lashawn Patel MD [facility] US ORDERABLES documented in this encounter Visit Diagnoses Diagnosis Drug dependence affecting in s econd trimester - Primary AMA (advanced maternal age) multigravida 35+, second trimester History of loss in prior pregn jannie, currently in second trimester Drug dependence affecting in s econd trimester documented in this encounter Care Teams Glue Clamp Operator Relationship Specialty Start Date End Date Clinic, [facility] PCP - General 07/14/16 12/06/[address] [place] [id number] documented as of this encounter
--- OUTSIDE RECORDS SUMMARY | 2021-11-28 13:49 | XMS_ITS | Encounter Summary ---
:1980 Author Organization [place] Address [address] [place] [address] Care Team Providers Name Role Phone Clinic, [facility] Primary Care Provide r Encounter Details Date Type Department Care Team Description 10/10/2016 Orders Only [facility] Karen Patel e dependence (H); [facility] Laborato ry MD Lashawn High-risk , first trimester; 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 [...] C RNA quantitative (10/10/2016 1:52 PM CDT) [facility] Method Time Signature HCV RNA Quant [id number] HCVND^HCV 10/14/2016 [facility] IU/ml (A) RNA Not 12:34 PM CDT [facility] [IU]/mL BANK Comment: The LEONARDO [...] (H) <1.2 Log IU/mL 10/14/2016 12:34 PM [facility] BANK Specimen Anatomical Collection Method Collection Time Receive d Time (Source) Location / / Volume Laterality Blood specimen 10/10/2016 1:52 PM 017 1:55 (specimen) CDT PM CDT Violeta Fagan SUPERVISOR TOY ASSEMBLY CNM LAB - BLOOD ORDERABLES Performing Organization Address City/State/ZIP Code Phon e Number [facility] [address] [place] [address] [place] (ABNORMAL) Hepatic Panel (10/10/2016 1:52 PM CDT) [facility] Method Time Signature Bilirubin Direct 0.1 0.0 - 0.2 10/10/2016 [facility] O F mg/dL 3:12 PM CDT [facility] Bilirubin Total 0.4 0.2 - 1.3 10/10/2016 [facility] mg/dL 3:12 PM CDT [facility] Albumin 2.8 (L) 3.4 - 5.0 10/10/2016 [place] g/dL 3:12 PM CDT [facility] Protein Total 7.1 6.8 - 8.8 10/10/2016 [facility] g/dL 3:12 PM CDT [facility] Alkaline 60 40 - 150 10/10/2016 [facility] Phosphatase U/L 3:19 PM CDT [facility] ALT 27 0 - 50 U/L 10/10/2016 [facility] 3:12 PM CDT [facility] AST 17 0 - 45 U/L 10/10/2016 [facility] 3:12 PM CDT [facility] Specimen Anatomical Collection Method Collection Time Receive d Time (Source) Location / / Volume Laterality Blood specimen 10/10/2016 1:52 PM 017 1:55 (specimen) CDT PM CDT Violeta Fagan APRN [facility] LAB - BLOOD ORDERABLES Performing Organization Address City/[facility] Phon e Number [address] [address] [facility] TSH with free T4 reflex (10/10/2016 1:52 PM CDT) P athologist Signature TSH 1.66 0.40 - 4.00 10/10/2016 [facility] mU/L 3:19 PM CDT [facility] Specimen Anatomical Collection Method Collection Time Receive d Time (Source) Location / / Volume Laterality Blood specimen 10/10/2016 1:52 PM 017 1:55 (specimen) CDT PM CDT Violeta Fagan APRN [facility] LAB - BLOOD ORDERABLES Performing Organization Address City/[facility] Phon e Number [place] [phone] [facility] (ABNORMAL) Hepatitis C antibody (10/10/2016 1:52 PM CDT) Patholo gist Method Time Signature Hepatitis C Reactive (A) NR^Nonrea 10/11/2016 [facility] ctive 1:18 PM CDT [facility] Comment: A reactive result indicates [...] LAB - BLOOD ORDERABLES Performing Organization Address City/[facility]/ZIP Code Phon e Number [address] HIV Antigen Antibody Combo [[id number]] (10/10/2016 1:52 PM CDT) [facility] Method Time Signature HIV Antigen Nonreactive NR^Nonrea 10/11/2016 [facility] Antibody ctive 1:18 PM CDT [facility] Comment: HIV-1 p24 Ag & HIV-1/HIV-2 Ab N ot Detected Specimen Anatomical Collection Method Collection Time Receive d Time (Source) Location / / Volume Laterality Blood specimen 10/10/2016 1:52 PM 017 1:55 (specimen) CDT PM CDT Violeta STEVENS LAB - BLOOD ORDERABLES Performing Organization Address City/[facility]/ZIP Code Phon e Number [address] Hepatitis B Surface Antigen [[id number]] (10/10/2016 1:52 PM CDT) [facility] Method Time Signature Hep B Surface Nonreactive NR^Nonrea 10/11/2016 [facility] Agn ctive 1:18 PM CDT [facility] Specimen Anatomical Collection Method Collection Time Receive d Time (Source) Location / / Volume Laterality Blood specimen 10/10/2016 1:52 PM 017 1:55 (specimen) CDT PM CDT Violeta Fagan APRN, CNM LAB - BLOOD ORDERABLES Performing Organization Address City/[facility]/ZIP Code Phon e Number [address] Rubella Antibody IgG Quantitative [[id number]] (10/10/2016 1:52 PM CDT) [facility] Time Signature Rubella Antibody 8 IU/mL 10/11/2016 [place] F IgG Quantitative 1:44 PM CDT [facility] Comment: Equivocal, please recollect. Reference Range: ??Unvaccinated Negative 0-7 IU/mL Vaccinated or previous exposure Positive 10 IU/ml or greater Specimen Anatomical Collection Method Collection Time Receive d Time (Source) Location / / Volume Laterality Blood specimen 10/10/2016 1:52 PM 017 1:55 (specimen) CDT PM CDT Violeta Fagan APRN, CNM LAB - BLOOD ORDERABLES Performing Organization Address City/[facility]/ZIP Code Phon e Number [facility] [address] Anti Treponema [[id number]] (10/10/2016 1:52 PM CDT) Analysis Performed At Patho logist Time Signature Treponema Negative NEG^Negati 10/11/2016 [facility] ve 10:[address] [facility] Specimen Anatomical Collection Method Collection Time Receive d Time (Source) Location / / Volume Laterality Blood specimen 10/10/2016 1:52 PM 017 1:55 (specimen) CDT PM CDT Violeta Fagan APRN, CNM LAB - BLOOD ORDERABLES Performing Organization Address City/[facility]/ZIP Code Phon e Number [address] (ABNORMAL) CBC with Platelets Differential [[id number]] (10/10/2016 1:52 PM CDT) Patholo gist Method Time Signature WBC 5.3 4.0 - 10/10/2016 [facility] 11.0 2:52 PM CDT [facility] 10e9/L [facility] RBC Count 3.64 (L) 3.8 - 5.2 10/10/2016 [facility] 10e12/L 2:52 PM CDT [facility] Hemoglobin 11.1 (L) 11.7 - 10/10/2016 [facility] 15.7 g/dL 2:52 PM CDT [facility] Hematocrit 32.7 (L) 35.0 - 10/10/2016 [facility] 47.0 % 2:52 PM CDT [facility] MCV 90 78 - 100 10/10/2016 [facility] fl 2:52 PM CDT [facility] MCH 30.5 26.5 - 10/10/2016 [facility] 33.0 pg 2:52 PM CDT [facility] MCHC 33.9 31.5 - 10/10/2016 [facility] 36.5 g/dL 2:52 PM T [facility] RDW 13.1 10.0 - 10/10/2016 [facility] 15.0 % 2:52 PM T [facility] Platelet Count 186 150 - 450 10/10/2016 [facility] 10e9/L 2:52 PM T [facility] Diff Method Automated 10/10/2016 [facility] Method 2:52 PM [facility] % Neutrophils 61.4 % 10/10/2016 [facility] 2:52 PM T [facility] % Lymphocytes 29.2 % 10/10/2016 [facility] 2:52 PM [facility] % Monocytes 6.2 % 10/10/2016 [facility] 2:52 PM T [facility] % Eosinophils 2.8 % 10/10/2016 [facility] 2:52 PM [facility] % Basophils 0.2 % 10/10/2016 [facility] 2:52 PM T [facility] % Immature 0.2 % 10/10/2016 [facility] Granulocytes 2:52 PM [facility] Nucleated RBCs 0 0 /100 10/10/2016 [facility] 2:52 PM [facility] Absolute 3.3 1.6 - 8.3 10/10/2016 [facility] Neutrophil 10e9/L 2:52 PM T [facility] Absolute 1.6 0.8 - 5.3 10/10/2016 [facility] Lymphocytes 10e9/L 2:52 PM T [facility] Absolute 0.3 0.0 - 1.3 10/10/2016 [facility] Monocytes 10e9/L 2:52 PM [facility] Absolute 0.2 0.0 - 0.7 10/10/2016 [facility] Eosinophils 10e9/L 2:52 PM T [facility] Absolute 0.0 0.0 - 0.2 10/10/2016 [facility] Basophils 10e9/L 2:52 PM T [facility] Abs Immature 0.0 0 - 0.4 10/10/2016 [facility] Granulocytes 10e9/L 2:52 PM CDT [facility] Absolute 0.0 10/10/2016 [facility] Nucleated RBC 2:52 PM CDT [facility] Specimen Anatomical Collection Method Collection Time Receive d Time (Source) Location / / Volume Laterality Blood specimen 10/10/2016 1:52 PM 017 1:55 (specimen) CDT PM CDT Violeta Fagan APRN CNCamryn LAB - BLOOD ORDERABLES Performing Organization Address City/[facility]/ZIP Code Phon e Number [place] [phone] [place] [address] [facility] ABO/Rh Type and Screen [[id number]] (10/10/2016 1:52 PM CDT) [facility] gist Method Time Signature ABO B 10/10/2016 [facility]ITY 6:33 PM CDT [facility] RH(D) Pos [facility] Antibody Neg 10/10/2016 [facility] Screen 6:33 PM CDT [facility] Test Valid University 10/10/2016 [facility] Only [facility] [place] 4:54 PM CDT [facility] BANK w Hospital Specimen 10/13/2016 10/10/2016 [facility] Expires 4:54 PM CDT [facility] Specimen Anatomical Collection Method Collection Time Receive d Time (Source) Location / / Volume Laterality Blood specimen 10/10/2016 1:52 PM 017 1:56 (specimen) CDT PM CDT Violeta Fagan APRN, CNM LAB - BLOOD BANK TEST ORD ER Performing Organization Address City/[facility]/ZIP [facility] Phon e Number [address] [address] [facility] 25- [place]-Vitamin D (10/10/2016 1:52 PM CDT) P athologist Signature Vitamin D 51 20 - 75 10/11/2016 [facility] Deficiency ug/L 1:18 PM CDT [facility] Comment: Season, race, dietary intake, and treatm ent affect the concentration of 86-aexbepy-Bpudfgm D. Values may decreas e during winter [...] 017 1:55 (specimen) CDT PM CDT Violeta Lynn Rylan YANES CNM LAB - BLOOD ORDERABLES Performing Organization Address City/State/ZIP Code Phon e Number [address] documented in this encounter Visit Diagnoses Diagnosis Opiate dependence (H) Opioid type dependence, unspecified High-risk , first trimester Hypothyroidism affecting in fi rst trimester Chronic hepatitis C without hepatic coma (H) documented in this encounter Care Teams Fire Safety Manager Relationship Specialty Start Date End Date Clinic, [facility] PCP - General 07/14/16 12/06/[address] [place] [address] documented as of this encounter
--- OUTSIDE RECORDS SUMMARY | 2021-11-28 13:49 | XMS_ITS | Encounter Summary ---
:1980 Author Organization [place] Address [address] [facility] [place] [address] Care Team Providers Name Role Phone Clinic, [facility] Primary Care Provide r Reason for Visit Reason Onset Date Comments Medication Request 10/07/2016 Bridge for Subutex Encounter Details Date Type Department Care Team Description 10/07/2016 Telephone [facility] Edgar Alfredo, [facility] ication Request Clinic Ashly VÁSQUEZ (Bridge for Subutex ) [address] [place] [address] [place] [phone] (Wo rk) Social History Tobacco Use Types Packs/Day Years Used Date Smoking Tobacco: Every Day Cigarettes 0.1 10 Smokeless Tobacco: Never Comments: 5 cigarettes a day Alcohol Use Standard Drinks/Week Comments Yes 0 (1 standard drink = 0.6 oz pure Stoppe d after found out alcohol) Sex Assigned at Date Recorded Female 01/14/2020 10:57 AM MONITOR TECH documented as of this encounter Miscellaneous Notes Telephone Encounter - Mark Roldan - 10/07/2016 2:45 PM CDT Coal Sample Tester spoke with pt she's scheduled for 10/10/16 @ 3 pm. Mark Roldan Wood Boat Builder Supervisor Telephone Encounter - Edgar Alfredo MD - [...] would work for pt. Pt contact info: [phone] [facility] [place]. Mark Roldan Wood Boat Builder Supervisor documented in this encounter Plan of Treatment Upcoming Encounters Date Type Specialty Care Team Description 11/29/2021 Office Visit Wound Care Luis Camara DPM [address] [place] [address] (Wo rk) 01/21/2022 Office Visit Gastroenterology Juanis Levi [address] [place] [phone] Luis Fernando Miles MD [address] [facility] [address] [place], [place] [phone] documented as of this encounter Visit Diagnoses Diagnosis Uncomplicated opioid dependence (H) Opioid type dependence, unspecified documented in this encounter Care Teams Senior Research Engineer Relationship Specialty Start Date End Date Clinic, [facility] PCP - General 07/14/16 12/06/16 [address] [place] [address] documented as of this encounter
--- OUTSIDE RECORDS SUMMARY | 2021-11-28 13:49 | XMS_ITS | Encounter Summary ---
:1980 Author Organization [place] Address [address] [facility] [place] [address] Care Team Providers Name Role Phone Clinic, [facility] Primary Care Provide r Encounter Details Date Type Department Care Team Description 11/30/2016 Telephone [facility] Sa blank Olivares MD Birthplace [address] [facility] [address] [place] [address] [place] [phone] Social History Tobacco Use Types Packs/Day Years Used Date Smoking Tobacco: Every Day Cigarettes 0.1 10 Smokeless Tobacco: Never Comments: 5 cigarettes a day Alcohol Use Standard Drinks/Week Comments Yes 0 (1 standard drink = 0.6 oz pure Stoppe d after found out alcohol) Sex Assigned at Date Recorded Female 01/14/2020 10:57 AM TRAVEL 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 Kayla Olivares MD RESEARCH GREENHOUSE SUPERVISOR Resident, PGY-3 11/30/2016 11:39 PM documented in this encounter Plan of Treatment Upcoming Encounters Date Type Specialty Care Team Description 11/29/2021 Office Visit Wound Care Luis Camara DPM [address] [place], [place] [phone] (Wo rk) 01/21/2022 Office Visit Gastroenterology Juanis Levi [address] [place] [address] Luis Fernando Miles MD [address] [facility] [address] [place], [place] [address] documented as of this encounter Visit Diagnoses Not on filedocumented in this encounter Care Teams Promotions Associate Relationship Specialty Start Date End Date Clinic, [facility] PCP - General 07/14/16 12/06/[address] [place] [phone] documented as of this encounter
--- OUTSIDE RECORDS SUMMARY | 2021-11-28 13:49 | XMS_ITS | Encounter Summary ---
:1980 Author Organization [place] Address [address] [facility] [place] [address] Care Team Providers Name Role Phone Clinic, [facility] Primary Care Provide r Reason for Referral Diagnostic Procedure Outpatient - Closed Specialty Diagnoses / Procedures Referred By Contact Refer red To Contact Diagnoses Chronic hepatitis C without hepatic coma (H) Supervision of high-risk , second trimester Nella Robledo CNM [address] [place], [place] [address] Referral ID Status Reason Start Date Expiration Date Visits Requ ested Visits Authorized [id number] Closed 10/15/2016 10/15/2017 1 1 Encounter Details Date Type Department Care Team Description 10/15/2016 Orders Only [facility] Bridget Robledo n of high-risk , second trimester (Primary Dx); [facility] Nella Wesley CNM Chronic hepatitis C without hepatic coma (H) [place] [address] [facility] Professional [address] [address] [facility] [address] (Work) [place], [place] [phone] [address] (Fax) [phone] Social History Tobacco Use Types Packs/Day Years Used Date Smoking Tobacco: Every Day Cigarettes 0.1 10 Smokeless Tobacco: Never Comments: 5 cigarettes a day Alcohol Use Standard Drinks/Week Comments Yes 0 (1 standard drink = 0.6 oz pure Stoppe d after found out alcohol) Sex Assigned at Date Recorded Female 01/14/2020 10:57 AM RELIGION INSTRUCTOR documented as of this encounter Plan of Treatment Upcoming Encounters Date Type Specialty Care Team Description 11/29/2021 Office Visit Wound Care Luis Camara DPM [address] [place], [place] [phone] (Wo rk) 01/21/2022 Office Visit Gastroenterology Juanis Levi [address] [place] [address] Luis Fernando Miles MD 516 [facility] [address] [place] [address] Scheduled Referrals Name Type Priority Associated Diagnoses Order S [facility] GASTROENTEROLOGY ADULT REF Referral Routine Chronic hepati tis C Ordered: 10/15/2016 CONSULT ONLY without hepatic coma (H) Supervision of high-risk , second trimester documented as of this encounter Visit Diagnoses Diagnosis Supervision of high-risk , seco nd trimester - Primary Chronic hepatitis C without hepatic coma (H) documented in this encounter Care Teams Obedience Trainer Relationship Specialty Start Date End Date [facility], [facility] PCP - General 07/14/16 12/06/[address] [place] [address] documented as of this encounter
--- OUTSIDE RECORDS SUMMARY | 2021-11-28 13:49 | XMS_ITS | Encounter Summary ---
:1980 Author Organization [place] Address [address] [facility] [place] [address] Care Team Providers Name Role Phone Clinic, [facility] Primary Care Provide r Reason for Visit Reason Comments Ultrasound TV US-H/O uterine rupture, c omplete previa and short cervix Encounter Details Date Type Department Care Team Description 10/10/2016 Office Visit [facility] Ilana Patel MD [address] [address] H/O delivery, Maternal Richard Villa MD [address] [address] currently , [facility] Center [facility] (Primary Dx) [address] [place] [address] Social History Tobacco Use Types Packs/Day Years Used Date Smoking Tobacco: Every Day Cigarettes 0.1 10 Smokeless Tobacco: Never Comments: 5 cigarettes a day Alcohol Use Standard Drinks/Week Comments Yes 0 (1 standard drink = 0.6 oz pure Stoppe d after found out alcohol) Sex Assigned at Date Recorded Female 01/14/2020 10:57 AM DERMATOLOGY PHYSICIAN ASSISTANT documented as of this encounter Progress Notes Richard Villa MD - 10/10/2016 2:45 PM CDT Please see Imaging tab under Chart Review for details of today's US at the [facility]. Richard Villa MD Maternal- Medicine documented in this encounter Plan of Treatment Upcoming Encounters Date Type Specialty Care Team Description 11/29/2021 Office Visit Wound Care Luis Camara DPM [address] [place], [place] [address] (Wo rk) 01/21/2022 Office Visit Gastroenterology Juanis Levi [address] [place] [address] Luis Fernando Miles MD 516 [facility] [address]A [place], [place] [address] documented as of this encounter Visit Diagnoses Diagnosis H/O delivery, currently , second trimester - Primary documented in this encounter Care Teams Development Chemist Relationship Specialty Start Date End Date Clinic, [facility] PCP - General 07/14/16 12/06/[address] [place] [address] documented as of this encounter
--- OUTSIDE RECORDS SUMMARY | 2021-11-28 13:49 | XMS_ITS | Encounter Summary ---
:1980 Author Organization [place] Address [facility] [place] [address] Care Team Providers Name Role Phone Clinic, [facility] Primary Care Provide r Encounter Details Date Type Department Care Team Description 11/26/2016 Telephone [facility] Ann Marie Sen MD Birthplace [address] [phone] [address] [facility] [phone] [place] [address] (Wo rk) Social History Tobacco Use Types Packs/Day Years Used Date Smoking Tobacco: Every Day Cigarettes 0.1 10 Smokeless Tobacco: Never Comments: 5 cigarettes a day Alcohol Use Standard Drinks/Week Comments Yes 0 (1 standard drink = 0.6 oz pure Stoppe d after found out alcohol) Sex Assigned at Date Recorded Female 01/14/2020 10:57 AM 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 Ann Marie Sen MD LODGE OFFICER, PGY2 11/26/16 documented in this encounter Plan of Treatment Upcoming Encounters Date Type Specialty Care Team Description 11/29/2021 Office Visit Wound Care Luis Camara, [place] [address] [place], [place] [address] (Wo rk) 01/21/2022 Office Visit Gastroenterology Juanis Levi [address] [place] [phone] Luis Fernando Miles MD 516 [facility] [address] [place] [address] documented as of this encounter Visit Diagnoses Not on filedocumented in this encounter Care Teams Flap Presser Relationship Specialty Start Date End Date Clinic, [facility] PCP - General 07/14/16 12/06/[address] [place] [address] documented as of this encounter
--- OUTSIDE RECORDS SUMMARY | 2021-11-28 13:49 | XMS_ITS | Encounter Summary ---
:1980 Author Organization [place] Address [address] [facility] [place] [address] Care Team Providers Name Role Phone Clinic, [facility] Primary Care Provide r Encounter Details Date Type Department Care Team Description 10/01/2016 Hospital Encounter [facility] Amanda, High -risk , Maternal MD Lashawn first trimester Medicine Center [address] [facility] [address] 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 Narrative 10/03/2016 3:50 PM CDT 2nd / 3rd Trim Pat. Name: KINGFRANSISCODI Study Date: 10:41am Pat. NO: [id number] Referring ??: RICHARD STEIN Site: [facility] Certified Medical Assistant: Magalis Pina RDMS : 1980 Age: 36 [...] 0 lb 8 ?oz Calculated by ?Hadlock ([id number]) Head / Face / Neck Biometry: Degreasing Wheel Operator ?5.2 ?mm ? Amniotic Fluid / FHR: [...] your maternal Medici ne consult regarding Miss King history of Subutex use, AMA and history of uterine rupture. During the consultation, Stephani let us knfred hi that she has transferred her care from [facility] [place] [facility] to [facility] clinic at [facility] due to her complex history. HPI: Stephani King is a 36 year old at 17w4d who has been referred for Maternal- Medicine consultation in regards to her history of Subutex use and history of uterine rupture. Miss King has had a complicated Ob h istory. [...] BREAST SURGERY ABcess drained ? SECTION ? FRONT DESK SURGERY Medications: WELLBUTRIN SR 150 MG 12 [...] of 30 minutes face-to-fa ce with Stephani King during today's office visit. [...] care. Thank you for the opportunity to particonur hall in the care of this patient. If you have questions regarding today's evaluation or if we can be of further service, please contact the Maternal- Medicine Center. anomalies may be present but not detected. Procedure Note Lashawn Patel MD - 10/03/2016Formatt ing of this note might be different from the original. / Trim Pat. Name:Elizabeth KING Date:10/01 10:41am Pat. NO: [id number] :May DENISHA [facility] Garcia :1980Age:36 INDICATION Hypothyroid. Twin demise of [...] (lb,oz) 0 lb 8 oz Calculated by Flora ([id number]-FL) Head / Face / Neck Biometry: Degreasing Wheel Operator 5.2 mm Amniotic Fluid / FHR: AF [...] Ovary Visualized. Left Ovary Visualized. CONSULTATION Type: [facility] CONSULTATION. Maternal- Medicine Consultation REFERRAL: Dear Miss Jacob Gopal, Thank you for your maternal Medici ne consult regarding Miss King history of Subutex use, AMA and history of uterine rupture. During the consultation, Stephani let us shorty hi that she has transferred her care from [facility] [place] [facility] to [facility] clinic at [facility] due to her complex history. HPI: Stephani King is a 36 year old at 17w4d who has been referred for Maternal- Medicine consultation in regards to her history of Subutex use and history of uterine rupture. Miss King has had a complicated Ob h istory. [...] Live Births 7 #OutcomeDateGALbr Sherman/2ndWeightSexDelive ryAnesPTLLv 9Current 6Eydexoz74/03/2033q0s/ 01:060.325 kg (11 .5 oz)UVag-SpontFD Apgar1: 0 Apgar5: 0 7Dmjx3859WO-EYxdasTUA 6Pbjs2002CX-RNyungXKH 5TermLIV 4TermLIV 3TermLIV 2TermDEC 1TermDEC Past Medical History: DiagnosisDate ?Anxiety ?Chronic hepatitis C (H) ?Depressive disorder ?Hypothyroid ?Suboxone maintenance treatment complica ting , antepartum (H) Past Surgical History: ProcedureLateralityDate ?BREAST SURGERY ABcess drained ? SECTION ?FRONT DESK SURGERY Medications: WELLBUTRIN SR 150 MG 12 [...] BPP is r easonable. Recommend that Stephani sinclair to receive full daily buprenorphine dose including [...] of 30 minutes face-to-fa ce with Stephani King during today's office visit. [...] is w ithin . [facility] documented in this encounter Visit Diagnoses Diagnosis High-risk , first trimester documented in this encounter Care Teams Family Practitioner Relationship Specialty Start Date End Date Clinic, [facility] PCP - General 07/14/16 12/06/16 [address] [place] [address] documented as of this encounter
--- OUTSIDE RECORDS SUMMARY | 2021-11-28 13:49 | XMS_ITS | Encounter Summary ---
:1980 Author Organization [place] Address [address] [place] [address] Care Team Providers Name Role Phone Clinic, [facility] Primary Care Provide r Reason for Visit Reason Onset Date Comments Erroneous encounter-disregard 10/07/2016 Encounter Details Date Type Department Care Team Description 10/07/2016 Office Visit [facility] Edgar Alfredo ERRONEOUS Clinic Ashly Gauthier MD ENCOUNTER--DISREGARD [address] [place] (Primary Dx) [address] [place] [phone] Social History Tobacco Use Types Packs/Day Years Used Date Smoking Tobacco: Every Day Cigarettes 0.1 10 Smokeless Tobacco: Never Comments: 5 cigarettes a day Alcohol Use Standard Drinks/Week Comments Yes 0 (1 standard drink = 0.6 oz pure Stoppe d after found out alcohol) Sex Assigned at Date Recorded Female 01/14/2020 10:57 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 Please disregard. documented in this encounter Plan of Treatment Upcoming Encounters Date Type Specialty Care Team Description 11/29/2021 Office Visit Wound Care Luis Camara, [place] [address] [place], [place] [address] (Wo rk) 01/21/2022 Office Visit Gastroenterology Juanis Levi [address] [place] [address] Luis Fernando Miles MD 516 [facility] [address] [place], [place] [phone] documented as of this encounter Visit Diagnoses Diagnosis ERRONEOUS ENCOUNTER--DISREGARD - Primary documented in this encounter Care Teams Director Of Physical Education Relationship Specialty Start Date End Date Clinic, [facility] PCP - General 07/14/16 12/06/[address] [place] [address] documented as of this encounter
--- OUTSIDE RECORDS SUMMARY | 2021-11-28 13:49 | XMS_ITS | Encounter Summary ---
:1980 Author Organization [place] Address [address] [facility] [place] [address] Care Team Providers Name Role Phone Clinic, [facility] Primary Care Provide r Reason for Visit Reason Onset Date Comments Prior Auth - Medication 10/11/2016 buprenorphine (S UBUTEX) 2 MG Encounter Details Date Type Department Care Team Description 10/11/2016 Telephone [facility] Edgar Alfredo Pri or Auth - Medication Clinic Ashly VÁSQUEZ (buprenorphine [address] [place] (SUBUTEX) 2 MG) [address] [place] [address] [phone] (Wo rk) Social History Tobacco Use Types Packs/Day Years Used Date Smoking Tobacco: Every Day Cigarettes 0.1 10 Smokeless Tobacco: Never Comments: 5 cigarettes a day Alcohol Use Standard Drinks/Week Comments Yes 0 (1 standard drink = 0.6 oz pure Stoppe d after found out alcohol) Sex Assigned at Date Recorded Female 01/14/2020 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 Alfredo's folder Dora Merchant October 11, 2016 at 8:28 AM documented in this encounter Plan of Treatment Upcoming Encounters Date Type Specialty Care Team Description 11/29/2021 Office Visit Wound Care Luis Camara DPM 909 [place], [place] [phone] (Wo rk) 01/21/2022 Office Visit Gastroenterology Juanis Levi 2450 [place] [phone] Luis Fernando Miles MD 6 [facility] [address] [place] [address] documented as of this encounter Visit Diagnoses Not on filedocumented in this encounter Care Teams Drier Tender Relationship Specialty Start Date End Date Clinic, [facility] PCP - General 07/14/16 12/06/[address] [place] [address] documented as of this encounter
--- OUTSIDE RECORDS SUMMARY | 2021-11-28 13:49 | XMS_ITS | Encounter Summary ---
:1980 Author Organization [place] Address [address] [facility] [place] [address] Care Team Providers Name Role Phone Clinic, [facility] Primary Care Provide r Reason for Visit Reason Onset Date Comments Results 10/15/2016 Encounter Details Date Type Department Care Team Description 10/15/2016 Telephone [facility] Nurse, [facility] Results [facility] Profession al Building 3rd [facility] [address] [facility] [place] [phone] Social History Tobacco Use Types Packs/Day Years Used Date Smoking Tobacco: Every Day Cigarettes 0.1 10 Smokeless Tobacco: Never Comments: 5 cigarettes a day Alcohol Use Standard Drinks/Week Comments Yes 0 (1 standard drink = 0.6 oz pure Stoppe d after found out alcohol) Sex Assigned at Date Recorded Female 01/14/2020 10:57 AM 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 PCP - General 07/14/16 12/06/[address] [place] [address] documented as of this encounter
--- OUTSIDE RECORDS SUMMARY | 2021-11-28 13:49 | XMS_ITS | Encounter Summary ---
:1980 Author Organization [place] Address [address] [place] [address] Care Team Providers Name Role Phone Clinic, [facility] Primary Care Provide r Encounter Details Date Type Department Care Team Description 10/10/2016 Hospital Encounter [facility] Lela Patel MD 606 [facility] [address] [id number] Drug dependence Maternal RaukRichard MD [address] [place], [place] [address]E [address] [address] affecting Medicine Center in [facility] [address] [place] [phone] Social History Tobacco Use Types Packs/Day Years Used Date Smoking Tobacco: Every Day Cigarettes 0.1 10 Smokeless Tobacco: Never Comments: 5 cigarettes a day Alcohol Use Standard Drinks/Week Comments Yes 0 (1 standard drink = 0.6 oz pure Stoppe d after found out alcohol) Sex Assigned at Date Recorded Female 01/14/2020 10:57 AM SPORTS ANALYST documented as of this encounter Medications at [...] Visit Wound Care Luis Camara DPM 909 [place] [address] (Wo rk) 01/21/2022 Office Visit Gastroenterology Juanis Levi [address] [place] [address] Luis Fernando Miles MD 516 [facility] [address] [place] [address] documented as of this encounter Procedures Procedure Name Priority Date/Time Associated Comments Diagnosis MFM US OB Routine 10/10/2016 2:40 PM Drug dependence [...] STEPHANI REDDY Study Date: 2:07pm Pat. NO: [id number] Referring ??: LUDY HOANG BURN Site: [facility] Pouch Maker: Tammi Parra RDMS : 1980 Age: 36 [...] Pat. Name:Elizabeth REDDY Date:10/10 2:07pm Pat. NO: [id number] MD:JOSE ALFREDO RODRIGUEZ [facility]JOHAN Song :1980Age:36 INDICATION History of delivery, History [...] length with no funneling. Lashawn Patel MD [facility] US ORDERABLES documented in this encounter Visit Diagnoses Diagnosis Drug dependence affecting in s econd trimester documented in this encounter Care Teams Black Off Worker Relationship Specialty Start Date End Date Clinic, [facility] PCP - General 07/14/16 12/06/[address] [place] [phone] documented as of this encounter
--- OUTSIDE RECORDS SUMMARY | 2021-11-28 13:49 | XMS_ITS | Encounter Summary ---
:1980 Author Organization [place] Address [address] [facility] [place] [address] Care Team Providers Name Role Phone Clinic, [facility] Primary Care Provide r Reason for Visit Reason Onset Date Comments Addiction Problem Erroneous encounter-disregard 12/01/2016 Encounter Details Date Type Department Care Team Description 11/26/2016 Office Visit [facility] Edgar Alfredo ERRONEOUS Clinic Ashly Gauthier MD ENCOUNTER--DISREGARD [address] [place] (Primary Dx) [address] [place] [phone] Social History Tobacco Use Types Packs/Day Years Used Date Smoking Tobacco: Every Day Cigarettes 0.1 10 Smokeless Tobacco: Never Comments: 5 cigarettes a day Alcohol Use Standard Drinks/Week Comments Yes 0 (1 standard drink = 0.6 oz pure Stoppe d after found out alcohol) Sex Assigned at Date Recorded Female 01/14/2020 10:57 AM WATER TESTER documented as of this encounter Progress Notes Edgar Alfredo MD - 11/26/2016 11:15 AM CDT This encounter was opened in error. Please disregard. documented in this encounter Plan of Treatment Upcoming Encounters Date Type Specialty Care Team Description 11/29/2021 Office Visit Wound Care Luis Camara, [place] [address] [facility] [place], [place] [address] (Wo rk) 01/21/2022 Office Visit Gastroenterology Juanis Levi 2450 [place] [phone] Luis Fernando Miles MD 516 [facility] 2A [place] [address] documented as of this encounter Visit Diagnoses Diagnosis ERRONEOUS ENCOUNTER--DISREGARD - Primary documented in this encounter Care Teams Aircraft Engineer Relationship Specialty Start Date End Date Clinic, [facility] PCP - General 07/14/16 12/06/[address] [place] [address] documented as of this encounter
--- OUTSIDE RECORDS SUMMARY | 2021-11-28 13:49 | XMS_ITS | Encounter Summary ---
:1980 Author Organization [place] Address [address] [facility] [place] [address] Care Team Providers Name Role Phone Clinic, [facility] Primary Care Provide r Reason for Visit Reason Onset Date Comments Consult 09/17/2016 reschedule Encounter Details Date Type Department Care Team Description 09/17/2016 Telephone [facility] Anabelle Thomas ult (reschedule) Maternal Medicine GENARO [facility] [address] [place], [place] [address] [place] [phone] Social History Tobacco Use Types Packs/Day Years Used Date Smoking Tobacco: Every Day Cigarettes 0.1 10 Smokeless Tobacco: Never Comments: 5 cigarettes a day Alcohol Use Standard Drinks/Week Comments Yes 0 (1 standard drink = 0.6 oz pure Stoppe d after found out alcohol) Sex Assigned at Date Recorded Female 01/14/2020 10:57 AM LINTER TENDER documented as of this encounter Miscellaneous [...] Visit Wound Care Luis Camara DPM 909 [place], [place] [address] (Wo rk) 01/21/2022 Office Visit Gastroenterology Juanis Levi 24[address] [place] [phone] Luis Fernando Miles MD [address] [phone] documented as of this encounter Visit Diagnoses Not on filedocumented in this encounter Care Teams Partition Assembly Machine Operator Relationship Specialty Start Date End Date Clinic, [facility] PCP - General 07/14/16 12/06/[address] [place] [address] documented as of this encounter
--- OUTSIDE RECORDS SUMMARY | 2021-11-28 13:49 | XMS_ITS | Encounter Summary ---
:1980 Author Organization [place] Address [address] [facility] [place] [address] Care Team Providers Name Role Phone Clinic, [facility] Primary Care Provide r Reason for Visit Reason Onset Date Comments Prior Auth - Medication 10/11/2016 WELLBUTRIN SR 15 0 MG Encounter Details Date Type Department Care Team Description 10/11/2016 Telephone [facility] Edgar Alfredo Pri or Auth - Medication Clinic Ashly VÁSQUEZ (WELLBUTRIN SR 150 MG ) [address] [place] [address] [place] [phone] (Wo rk) Social History Tobacco Use Types Packs/Day Years Used Date Smoking Tobacco: Every Day Cigarettes 0.1 10 Smokeless Tobacco: Never Comments: 5 cigarettes a day Alcohol Use Standard Drinks/Week Comments Yes 0 (1 standard drink = 0.6 oz pure Stoppe d after found out alcohol) Sex Assigned at Date Recorded Female 01/14/2020 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 Alfredo's folder Dora Merchant October 11, 2016 at 8:43 AM documented in this encounter Plan of Treatment Upcoming Encounters Date Type Specialty Care Team Description 11/29/2021 Office Visit Wound Care Luis Camara DPM 909 [place], [place] [address] (Wo rk) 01/21/2022 Office Visit Gastroenterology Juanis Levi [address] [place] [address] Luis Fernando Miles MD 516 [facility] 2[address] [place], [place] [address] documented as of this encounter Visit Diagnoses Not on filedocumented in this encounter Care Teams Fuel Efficient Automobile Designer Relationship Specialty Start Date End Date Clinic, [facility] PCP - General 07/14/16 12/06/[address] [place], [place] [address] [address] documented as of this encounter
--- OUTSIDE RECORDS SUMMARY | 2021-11-28 13:49 | XMS_ITS | Encounter Summary ---
:1980 Author Organization [place] Address [address] [facility] [place] [address] Care Team Providers Name Role Phone Clinic, [facility] Primary Care Provide r Reason for Visit Reason Comments Ultrasound 2/3 tri u/s- hx uterine rupt ure, PTD Encounter Details Date Type Department Care Team Description 09/10/[address] [facility] Ilana Patel MD [address] [place] [address] [place] [address] H/O delivery, Maternal Lex Woods MD [address] [facility] [address] [place] [address] currently , Medicine Center [facility] (Primary Dx) [address] [place], [place] [address] Social History Tobacco Use Types Packs/Day Years Used Date Smoking Tobacco: Every Day Cigarettes 0.1 10 Smokeless Tobacco: Never Comments: 5 cigarettes a day Alcohol Use Standard Drinks/Week Comments Yes 0 (1 standard drink = 0.6 oz pure Stoppe d after found out alcohol) Sex Assigned at Date Recorded Female 01/14/2020 10:57 AM EVAPORATOR documented as of this encounter Progress Notes Lex Woods MD - 09/10/2016 12:15 PM CDT Please see Imaging tab under Chart Review for details of today's ultrasound. Lex Woods M.D. Specialist in Maternal- Medicine documented in this encounter Plan of Treatment Upcoming Encounters Date Type Specialty Care Team Description 11/29/2021 Office Visit Wound Care Luis Camara, [place] 9[address] [place], [place] [address] (Wo rk) 01/21/2022 Office Visit Gastroenterology Juanis Levi [address] [place] [address] Luis Fernando Miles MD 516 [facility] 2A [place], [place] [address] documented as of this encounter Visit Diagnoses Diagnosis H/O delivery, currently , second trimester - Primary documented in this encounter Care Teams Technician Helper Instrument Relationship Specialty Start Date End Date Clinic, [facility] PCP - General 07/14/16 12/06/[address] [place] [address] documented as of this encounter
--- OUTSIDE RECORDS SUMMARY | 2021-11-28 13:49 | XMS_ITS | Encounter Summary ---
:1980 Author Organization [place] Address [address] [place] [address] Care Team Providers Name Role Phone Clinic, [facility] Primary Care Provide r Reason for Visit Reason Onset Date Comments Prior Auth - Medication 09/09/2016 Buprenorphine HC L 2 mg Encounter Details Date Type Department Care Team Description 09/09/2016 Telephone [facility] Edgar Alfredo Pri or Auth - Medication Clinic Ashly VÁSQUEZ (Buprenorphine HCL [address] [place] ) [address] [place] [phone] (Wo rk) Social History Tobacco Use Types Packs/Day Years Used Date Smoking Tobacco: Every Day Cigarettes 0.1 10 Smokeless Tobacco: Never Comments: 5 cigarettes a day Alcohol Use Standard Drinks/Week Comments Yes 0 (1 standard drink = 0.6 oz pure Stoppe d after found out alcohol) Sex Assigned at Date Recorded Female 01/14/2020 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 OR Case# [id number]. Lupe Lantigua MA Telephone Encounter - Lupe Lantigau CMA - 09/10/2016 8:21 AM CDT Staff called [facility] PA Department at [phone] (Option#3). Staff is waiting for PA request to be faxed. Staff completed and faxed PA request for Subutex 2mg tablets 120 tablets per 30 days. Lupe Lantigua MA Telephone Encounter - Mark Roldan - 09/09/2016 2:29 PM CDT Prior Authorization needed on: 09/09/16 Medication: Buprenorphine HCL Dose: 2 mg Pharmacy confirmed as [facility] [address] [facility] , Insurance: Go to [employer] Insurance vigil: [id number] Mark Roldan September 09, 2016 at 2:29 PM documented in this encounter Plan of Treatment Upcoming Encounters Date Type Specialty Care Team Description 11/29/2021 Office Visit Wound Care Luis Camara DPM 909 [place], [place] [address] (Wo rk) 01/21/2022 Office Visit Gastroenterology Juanis Levi 2450 [place] [phone] Luis Fernando Miles MD 516 [facility] 2[address] [place] [address] documented as of this encounter Visit Diagnoses Not on filedocumented in this encounter Care Teams Solutions Analyst Relationship Specialty Start Date End Date Clinic, [facility] Ed PCP - General 07/14/16 12/06/16 [facility] [place] [address] documented as of this encounter
--- OUTSIDE RECORDS SUMMARY | 2021-11-28 13:50 | XMS_ITS | Encounter Summary ---
:1980 Author Organization [place] Address [address] [facility] [place] [address] Care Team Providers Name Role Phone Clinic, [...] Department Care Team Description 08/16/2016 PRE VISIT [facility] Sintia Rasheed Genetic Epifanio story (GC: Maternal Medicine GENARO Ghotra AMA, +Hep B, smoker, Hx [facility] heart defect, [address] subutex use); [place], [place] [address] Ultrasound (1st tri [phone] screen: AMA, +H ep B, smoker, Hx [...] at Date Recorded Female 01/14/2020 10:57 AM RECRUITMENT MANAGER documented as of this encounter Plan of Treatment Upcoming Encounters Date Type Specialty Care Team Description 11/29/2021 Office Visit Wound Care Luis Camara DPM [address] [place], [place] [address] (Wo rk) 01/21/2022 Office Visit Gastroenterology Juanis Levi [address]50 [place] [address] Luis Fernando Miles MD 516 [facility] [address] [place] [address] documented as of this encounter Visit Diagnoses Not on filedocumented in this encounter Care Teams Equipment Washer Relationship Specialty Start Date End Date Clinic, [facility] PCP - General 07/14/16 12/06/[address] [place] [address] [phone] documented as of this encounter
--- OUTSIDE RECORDS SUMMARY | 2021-11-28 13:50 | XMS_ITS | Encounter Summary ---
:1980 Author Organization [place] Address [address] [place] [address] Care Team Providers Name Role Phone [facility] Primary Care Provide r Luis Fernando Magana Primary Care Provider [facility] Primary Care Provide r Tatyana Haas RN IMAGING CLINICAL QUALITY RN Unavailable [phone] Stephani Pina RN IMAGING CLINICAL QUALITY RN Unavailable [phone] Tatyana Haas RN IMAGING CLINICAL QUALITY RN Unavailable [phone] Stephani Pina RN IMAGING CLINICAL QUALITY RN Unavailable [phone] Juanis Levi Primary Care Provider Elsa Yeh RN Unavailable Unavailable Rogelio Treadwell MD Unavailable [phone] Luis Camara DPM Unavailable [phone] Camryn Christina MD Unavailable Sintia Lange PA-C Unavailable Luis Fernando Miles MD Unavailable [phone] Reason for Visit Reason Onset Date Comments Appointment 08/06/2016 Encounter Details Date Type Department Care Team Description 08/06/2016 Telephone [facility] Alexia Hawkins Appointment [place] [address] [place] Profession al Bldg [facility] [address] [place] [phone] Social History Tobacco Use Types Packs/Day Years Used Date Smoking Tobacco: Every Day Cigarettes 0.1 10 Smokeless Tobacco: Never Comments: 5 cigarettes a day Alcohol Use Standard Drinks/Week Comments Yes 0 (1 standard drink = 0.6 oz pure Stoppe d after found out alcohol) Sex Assigned at Date Recorded Female 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 11/07/201406/18 documented as of this encounter Care Teams Research Hydrologist Relationship Specialty Start Date End Date [facility] PCP - General 07/14/[address] [address] Luis Fernando Magana PCP - General Family Practice 12/07/16 01/19/[address] [phone] [facility] PCP - General 01/20/[address] [address] Juanis Levi PCP - General Addiction Medicine 06/29/[address] [place] [phone] Tatyana Haas, Assigned PCP 08/02/18 01/29/20 RN IMAGING CLINICAL QUALITY RN [facility] [address] [facility] [address] [place] [address] Stephani Pina, Assigned PCP 01/30/20 12/30/20 RN IMAGING CLINICAL QUALITY RN [address] [place], [place] [address] Tatyana Haas, Assigned PCP 12/31/20 02/24/21 RN IMAGING CLINICAL QUALITY RN [facility] [address] [facility] [address] [place] [address] Stephani Pina, Assigned PCP 02/25/21 RN IMAGING CLINICAL QUALITY RN [address] [place] [address] Elsa Yeh, Registered Nurse Infectious Diseases 07/25/21 Rogelio Wilson Assigned Musculoskeletal 08/04/21 MD August Provider 909 [place], [place] [phone] Luis Camara MD Podiatry 08/16/21 CALVIN Burnett [address]09 [place], [place] [address] Camryn Christina Assigned Surgical 09/01/21 09/07/21 MD Lexie Provider 420 [facility] 195 [place], [place] [phone] Sintia Lange PA-C Assigned Surgical 09/08/[address] [place] [place] [address] Landon Warren MD Gastroenterology 11/21/21 MD Luis Fernando 516 [facility] [place] [address] documented as of this encounter
--- OUTSIDE RECORDS SUMMARY | 2021-11-28 13:50 | XMS_ITS | Encounter Summary ---
:1980 Author Organization [place] Address [address] [place] [address] Care Team Providers Name Role Phone Clinic, Ltac, Located Within [facility] Primary Care Provide r Reason for Visit Reason Comments Abnormal Bleeding Problem Encounter Details Date Type Department Care Team Description 08/01/2016 Office Visit [facility] Mark Turner APRN [facility] [address] [place], [place] [address] High-risk , first trimester (Pr imary Dx); [facility] Violeta Fagan APRN CNM [address] [place], [place] [address] Twin with loss and reten tion of one fetus in first trimester; [place] Anxiety; [address] Uncomplicated opioid depende nce (H); [place] Professional Histo ry of depression; Bldg [facility] 88 Current every day smoker; 3rd Flr,Ron[address] Hypothyroidism affecting pre gnancy in first trimester; [place], [place] Chronic hepa titis C without hepatic coma (H); [phone] Family history of SIDS (sudd en syndrome); [phone] History of feta l anomaly in prior [...] at Date Recorded Female 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 We are an integrated health clinic with obstetricians, midwives, a psychologist, an indian nanny, a mushroom grower, a pharmacist, internal medicine and family practice [...] visit. o Eat a healthy diet. Visit www.Strutmyplate.gov and click on ??? and ??? forinformation and tips o Do not smoke. Avoid other people's smoke, too. We are happy to help with referrals to stop smokingprograms. o Do not drink alcohol. o Try to avoid people who have colds or other infections. Practice good hand washing. o Consider registering for our Healthy Class here at [facility]. This class is offered every Friday from 2:30-4:30 p.m. [place] at [phone] or online at [email or web address] or [email or web address] o Consider registering for education classes through [place] at [facility]. Youcan view class schedules and register online at [email or web address] or call [phone] for questions For urgent concerns, call [facility] at to speak with a triage [...] [place]-Vitamin D ??? CBC with Platelets Differential [MFJ315] ??? Anti Treponema [AZY9596] ??? Rubella Antibody IgG Quantitative [[id number]] ??? Hepatitis B Surface Antigen [MMB442] ??? HIV Antigen Antibody Combo [[id number]] ??? Hepatitis C antibody ??? TSH with free T4 reflex ??? Hepatic Panel ??? Hepatitis C RNA quantitative ??? ABO/Rh Type and Screen [[id number]] - Oriented to Practice, types of care, and how to reach a provider. Pt aware recommendation for MD lion d/t complex history and history of uterine [...] child born with cardiac and multiple anomalies. [facility] genetic appt scheduled 08/22/16. Plan echo [...] taper to chosen quit date. Interested in detention Wellbutrin use during to curb cravings. Epic message sent to pharmacist Dr. Lafleur to discuss meeting with pt to go over medication list make recommendations about detention Wellbutrin addition for smoking cessation. Pt agreeable. [...] of history and current medications/regimens again at [facility] to ensure no co morbids excluded from plan. Pt to RTO for [facility] visit in 2 weeks with physician and [...] Visit Wound Care Luis Camara DPM [address]09 [place], [place] [phone] (Wo rk) 01/21/2022 Office Visit Gastroenterology Juanis Levi [address] [place] [address] Luis Fernando Miles MD 516 [facility] [address] [place], [place] [phone] documented as of this encounter Results (ABNORMAL) Hepatitis C RNA quantitative (10/10/2016 1:52 PM CDT) [facility] Method Time Signature HCV RNA Quant 5,052,767 HCVND^HCV 10/14/2016 [facility] IU/ml (A) RNA Not 12:34 PM CDT [facility] [IU]/mL BANK Comment: The LEONARDO AmpliPrep/LEONARDO [...] (H) <1.2 Log IU/mL 10/14/2016 12:34 PM [facility] Specimen Anatomical Collection Method Collection Time Receive d Time (Source) Location / / Volume Laterality Blood specimen 10/10/2016 1:52 PM 017 1:55 (specimen) CDT PM CDT Violeta Bailey [place] SKILL TRAINING PROGRAM COORDINATOR CNM LAB - BLOOD ORDERABLES Performing Organization Address City/State/ZIP Code Phon e Number [phone] [place] [address] (ABNORMAL) Hepatic Panel (10/10/2016 1:52 PM CDT) [facility] Method Time Signature Bilirubin Direct 0.1 0.0 - 0.2 10/10/2016 [facility] F mg/dL 3:12 PM T [facility] Bilirubin Total 0.4 0.2 - 1.3 10/10/2016 [facility] mg/dL 3:12 PM [facility] Albumin 2.8 (L) 3.4 - 5.0 10/10/2016 [facility] g/dL 3:12 PM T [facility] Protein Total 7.1 6.8 - 8.8 10/10/2016 [facility] g/dL 3:12 PM CDT [facility] Alkaline 60 40 - 150 10/10/2016 [facility] Phosphatase U/L 3:19 PM T [facility] ALT 27 0 - 50 U/L 10/10/2016 [facility] 3:12 PM T [facility] AST 17 0 - 45 U/L 10/10/2016 [facility] 3:12 PM T [facility] Specimen Anatomical Collection Method Collection Time Receive d Time (Source) Location / / Volume Laterality Blood specimen 10/10/2016 1:52 PM 017 1:55 (specimen) CDT PM CDT Violeta Lynnjason Fagan APRN, CNM LAB - BLOOD ORDERABLES Performing Organization Address City/State/ZIP Code Phon e Number [phone] [place] [address] TSH with free T4 reflex (10/10/2016 1:52 PM CDT) P athologist Signature TSH 1.66 0.40 - 4.00 10/10/2016 [facility] mU/L 3:19 PM CDT [facility] Specimen Anatomical Collection Method Collection Time Receive d Time (Source) Location / / Volume Laterality Blood specimen 10/10/2016 1:52 PM 017 1:55 (specimen) CDT PM CDT Violeta Fagan APRN [facility] LAB - BLOOD ORDERABLES Performing Organization Address City/[facility]/ZIP Code Phon e Number [phone] [place] [address] (ABNORMAL) Hepatitis C antibody (10/10/2016 1:52 PM CDT) [facility] Method Time Signature Hepatitis C Reactive (A) NR^Nonrea 10/11/2016 [facility] ctive 1:18 PM CDT [facility] Comment: A reactive result indicates one of [...] 017 1:55 (specimen) CDT PM CDT Violeta Lynnjason [place] LAB - BLOOD ORDERABLES Performing Organization Address City/[facility]/ZIP Code Phon e Number [facility] [address] [employer] [address] HIV Antigen Antibody Combo [[id number]] (10/10/2016 1:52 PM CDT) [facility] Method Time Signature HIV Antigen Nonreactive NR^Nonrea 10/11/2016 [facility] Antibody ctive 1:18 PM CDT [facility] Comment: HIV-1 p24 Ag & HIV-1/HIV-2 Ab N ot Detected Specimen Anatomical Collection Method Collection Time Receive d Time (Source) Location / / Volume Laterality Blood specimen 10/10/2016 1:52 PM 017 1:55 (specimen) CDT PM CDT Violeta Fagan APRN, CNM LAB - BLOOD ORDERABLES Performing Organization Address City/[facility]/ZIP Code Phon e Number [facility] [address] Hepatitis B Surface Antigen [[id number]] (10/10/2016 1:52 PM CDT) [facility] Method Time Signature Hep B Surface Nonreactive NR^Nonrea 10/11/2016 [facility] Agn ctive 1:18 PM CDT [facility] Specimen Anatomical Collection Method Collection Time Receive d Time (Source) Location / / Volume Laterality Blood specimen 10/10/2016 1:52 PM 017 1:55 (specimen) CDT PM CDT Violeta Fagan APRN, CNM LAB - BLOOD ORDERABLES Performing Organization Address City/[facility]/ZIP Code Phon e Number [facility] [address] Rubella Antibody IgG Quantitative [[id number]] (10/10/2016 1:52 PM CDT) [facility] Time Signature Rubella Antibody 8 IU/mL 10/11/2016 [facility] F IgG Quantitative 1:44 PM CDT [facility] Comment: Equivocal, please recollect. Reference Range: ??Unvaccinated Negative 0-7 IU/mL Vaccinated or previous exposure Positive 10 IU/ml or greater Specimen Anatomical Collection Method Collection Time Receive d Time (Source) Location / / Volume Laterality Blood specimen 10/10/2016 1:52 PM 017 1:55 (specimen) CDT PM CDT Violeta Fagan APRN, CNM LAB - BLOOD ORDERABLES Performing Organization Address City/State/ZIP Code Phon e Number [facility] [address] [place] [address] [facility] Anti Treponema [[id number]] (10/10/2016 1:52 PM CDT) Analysis Performed At Patho logist Time Signature Treponema Negative NEG^Negati 10/11/2016 [facility] ve 10:21 AM CDT [facility] Specimen Anatomical Collection Method Collection Time Receive d Time (Source) Location / / Volume Laterality Blood specimen 10/10/2016 1:52 PM 017 1:55 (specimen) CDT PM CDT Violeta Fagan APRN [facility] LAB - BLOOD ORDERABLES Performing Organization Address City/[facility]/ZIP Code Phon e Number [facility] [address] (ABNORMAL) CBC with Platelets Differential [[id number]] (10/10/2016 1:52 PM CDT) Patholo gist Method Time Signature WBC 5.3 4.0 - 10/10/2016 [facility] 11.0 2:52 PM CDT [facility] 10e9/L [facility] RBC Count 3.64 (L) 3.8 - 5.2 10/10/2016 [facility] 10e12/L 2:52 PM CDT [facility] Hemoglobin 11.1 (L) 11.7 - 10/10/2016 [facility] 15.7 g/dL 2:52 PM CDT [facility] Hematocrit 32.7 (L) 35.0 - 10/10/2016 [facility] 47.0 % 2:52 PM CDT [facility] MCV 90 78 - 100 10/10/2016 [facility] fl 2:52 PM CDT [facility] MCH 30.5 26.5 - 10/10/2016 [facility] 33.0 pg 2:52 PM CDT [facility] MCHC 33.9 31.5 - 10/10/2016 [facility] 36.5 g/dL 2:52 PM CDT [facility] RDW 13.1 10.0 - 10/10/2016 [facility] 15.0 % 2:52 PM CDT [facility] Platelet Count 186 150 - 450 10/10/2016 [facility] 10e9/L 2:52 PM CDT [facility] Diff Method Automated 10/10/2016 [facility] Method 2:52 PM CDT [facility] % Neutrophils 61.4 % 10/10/2016 [facility] 2:52 PM CDT [facility] % Lymphocytes 29.2 % 10/10/2016 [facility] 2:52 PM CDT [facility] % Monocytes 6.2 % 10/10/2016 [facility] 2:52 PM CDT [facility] % Eosinophils 2.8 % 10/10/2016 [facility] 2:52 PM CDT [facility] % Basophils 0.2 % 10/10/2016 [facility] 2:52 PM CDT [facility] % Immature 0.2 % 10/10/2016 [facility] Granulocytes 2:52 PM CDT [facility] Nucleated RBCs 0 0 /100 10/10/2016 [facility] 2:52 PM CDT [facility] Absolute 3.3 1.6 - 8.3 10/10/2016 [facility] Neutrophil 10e9/L 2:52 PM CDT [facility] Absolute 1.6 0.8 - 5.3 10/10/2016 [facility] Lymphocytes 10e9/L 2:52 PM CDT [facility] Absolute 0.3 0.0 - 1.3 10/10/2016 [facility] Monocytes 10e9/L 2:52 PM CDT [facility] Absolute 0.2 0.0 - 0.7 10/10/2016 [facility] Eosinophils 10e9/L 2:52 PM CDT [facility] Absolute 0.0 0.0 - 0.2 10/10/2016 [facility] Basophils 10e9/L 2:52 PM CDT [facility] Abs Immature 0.0 0 - 0.4 10/10/2016 [facility] Granulocytes 10e9/L 2:52 PM CDT [facility] Absolute 0.0 10/10/2016 [facility] Nucleated RBC 2:52 PM T [facility] Specimen Anatomical Collection Method Collection Time Receive d Time (Source) Location / / Volume Laterality Blood specimen 10/10/2016 1:52 PM 017 1:55 (specimen) CDT PM CDT Violeta Fagan SKILL TRAINING PROGRAM COORDINATOR [facility] LAB - BLOOD ORDERABLES Performing Organization Address City/[facility]/ZIP Code Phon e Number [place] [id number] [place] [address] [facility] ABO/Rh Type and Screen [[id number]] (10/10/2016 1:52 PM CDT) Patholo gist Method Time Signature ABO B 10/10/2016 [facility] 6:33 PM CDT [facility] RH(D) Pos [facility] Antibody Neg 10/10/2016 [facility] Screen 6:33 PM CDT [facility] Test Valid University 10/10/2016 [facility] Only At [place] 4:54 PM CDT [facility] [facility] Specimen 10/13/2016 10/10/2016 [facility] Expires 4:54 PM CDT [facility] Specimen Anatomical Collection Method Collection Time Receive d Time (Source) Location / / Volume Laterality Blood specimen 10/10/2016 1:52 PM 017 1:56 (specimen) CDT PM CDT Violeta Bailey Rylan YANES [facility] LAB - BLOOD BANK TEST ORD ER Performing Organization Address [facility]/ZIP Code Phon e Number [place] [id number] [place] [address] [facility] 25- [place]-Vitamin D (10/10/2016 1:52 PM CDT) P athologist Signature Vitamin D 51 20 - 75 10/11/2016 [facility] Deficiency ug/L 1:18 PM CDT [place] MEDICAL screening [facility] Comment: Season, race, dietary intake, and treatm ent affect the concentration of 85-rxyxyoa-Ornboni D. Values may decreas e during winter [...] 1:55 (specimen) CDT PM CDT Violeta Fagan SKILL TRAINING PROGRAM COORDINATOR CNM LAB - BLOOD ORDERABLES Performing Organization Address City/State/ZIP Code Phon e Number [phone] [place] [address] documented in this encounter Visit Diagnoses Diagnosis [...] coma (H) Family history of SIDS (sudden de ath syndrome) Family history of other [...] disorder documented in this encounter Care Teams Underwater Hunter Trapper Relationship Specialty Start Date End Date Clinic, Ltac, Located Within [facility] PCP - General 07/14/16 12/06/[address] [place] [address] documented as of this encounter
--- OUTSIDE RECORDS SUMMARY | 2021-11-28 13:50 | XMS_ITS | Encounter Summary ---
:1980 Author Organization [place] Address [address] [facility] [place] [address] Care Team Providers Name Role Phone Clinic, [facility] Primary Care Provide r Encounter Details Date Type Department Care Team Description 08/01/2016 Office Visit [facility] Spec, Nurse Only Superv ision of [facility] Med high-risk pre gnancy, [place] first trimester [address] (Primary Dx) [place] Professional Bldg [facility] [address] [place] [address] Social History Tobacco Use Types Packs/Day Years Used Date Smoking Tobacco: Every Day Cigarettes 0.1 10 Smokeless Tobacco: Never Comments: 5 cigarettes a day Alcohol Use Standard Drinks/Week Comments Yes 0 (1 standard drink = 0.6 oz pure Stoppe d after found out alcohol) Sex Assigned at Date Recorded Female 01/14/2020 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 documented as of this encounter Progress [...] Visit Wound Care Luis Camara DPM [address] [place], [place] [phone] (Wo rk) 01/21/2022 Office Visit Gastroenterology Juanis Levi [address] [place] [address] Luis Fernando Miles MD 516 [facility] 2A [place], [place] [address] documented as of this encounter Visit Diagnoses Diagnosis Supervision of high-risk , firs t trimester - Primary documented in this encounter Care Teams Helper Shear Operator Relationship Specialty Start Date End Date Clinic, [facility] PCP - General 07/14/16 12/06/[address] [place] [address] documented as of this encounter
--- OUTSIDE RECORDS SUMMARY | 2021-11-28 13:50 | XMS_ITS | Encounter Summary ---
:1980 Author Organization [place] Address [address] [facility] [place] [address] Care Team Providers Name Role Phone Clinic, [facility] Primary Care Provide r Reason for Visit Reason Onset Date Comments Establish Care 07/18/2016 care Encounter Details Date Type Department Care Team Description 07/18/2016 [facility] Mark Turner [facility] CHIEF SAFETY OFFICER CNM ( care) 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 documented as of this encounter Miscellaneous Notes [...] Visit Wound Care Luis Camara DPM 909 [place], [place] [address] (Wo rk) 01/21/2022 Office Visit Gastroenterology Juanis Levi [address] [place] [address] Luis Fernando Miles MD 516 [facility] 2[address] [place], [place] [address] documented as of this encounter Visit Diagnoses Diagnosis Supervision of high-risk , firs t trimester - Primary documented in this encounter Care Teams Frame Expander Relationship Specialty Start Date End Date Clinic, [facility] PCP - General 07/14/16 12/06/[address] [place] [address] documented as of this encounter
--- OUTSIDE RECORDS SUMMARY | 2021-11-28 13:50 | XMS_ITS | Encounter Summary ---
:1980 Author Organization [place] Address [address] [place] [address] Care Team Providers Name Role Phone Clinic, [facility] Primary Care Provide r Reason for Referral - Closed Specialty Diagnoses / Procedures Referred By Contact Refer red To Contact Diagnoses Supervision of high-risk , first trimester Ur Maternal Med [address] [place], [place] [address] Referral ID Status Reason Start Date Expiration Date Visits Requ ested Visits Authorized [id number] Closed 08/22/2016 08/22/2017 1 1 Encounter Details Date Type Department Care Team Description 07/18/2016 Orders Only [facility] Anabelle Thomas rvision of Maternal GENARO Norris high-risk pre gnancy, Medicine Center [facility] (Primary Dx) [address] [place], [place] [address] Social History Tobacco Use Types Packs/Day Years Used Date Smoking Tobacco: Every Day Cigarettes 0.1 10 Smokeless Tobacco: Never Comments: 5 cigarettes a day Alcohol Use Standard Drinks/Week Comments No 0 (1 standard drink = 0.6 oz pure alcoho l) Sex Assigned at Date Recorded Female 01/14/2020 10:57 AM SOLE SKIVER documented as of this encounter Plan of Treatment Upcoming Encounters Date Type Specialty Care Team Description 11/29/2021 Office Visit Wound Care Luis Camara, [place] [address] [address] (Wo rk) 01/21/2022 Office Visit Gastroenterology Juanis Levi [address] [place] [address] Luis Fernando Miles MD [address] [facility] [address] [place] [address] Scheduled Referrals Name Type Priority Associated Diagnoses Order S erendira MFM Office Visit Referral Routine Supervision of high-risk [...] STEPHANI REDDY Study Date: 12:12pm Pat. NO: [id number] Referring ??MD: RICHARD STEIN Site: [facility] Ladle Puller: Mayela Teague RD MS : 1980 Age: [...] different from the original. 1st Trim Pat. Name:FRANSISCO REDDYReymundo Date:09/10 12:12pm Pat. NO: [id number] MD:MAY JITENDRA DENNY Site:[facility]onographer:Mayela Teague RDMS :1980Age:35 INDICATION Vaginal bleeding , [...] 4.1 cm long without fun neling. Lashawn [facility] US ORDERABLES documented in this encounter Visit Diagnoses Diagnosis Supervision of high-risk , firs t trimester - Primary Supervision of high-risk , firs t trimester documented in this encounter Care Teams Crop Grain Or Livestock Farmer Relationship Specialty Start Date End Date Clinic, [facility] PCP - General 07/14/16 12/06/16 [facility] [place] [address] documented as of this encounter
--- OUTSIDE RECORDS SUMMARY | 2021-11-28 13:50 | XMS_ITS | Encounter Summary ---
:1980 Author Organization [place] Address [address] [facility] [place] [address] Care Team Providers Name Role Phone Clinic, [facility] Primary Care Provide r Reason for Visit Reason Onset Date Comments Prior Auth - Medication 08/12/2016 Subutex Encounter Details Date Type Department Care Team Description 08/12/2016 Telephone [facility] Edgar Alfredo Pri or Auth - Medication Clinic Ashly VÁSQUEZ (Subutex) [address] [place] [address] [place] [address] (Wo rk) Social History Tobacco Use Types Packs/Day Years Used Date Smoking Tobacco: Every Day Cigarettes 0.1 10 Smokeless Tobacco: Never Comments: 5 cigarettes a day Alcohol Use Standard Drinks/Week Comments Yes 0 (1 standard drink = 0.6 oz pure Stoppe d after found out alcohol) Sex Assigned at Date Recorded Female 01/14/2020 10:57 AM COLLEGE 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 Telephone Encounter - Nicole Borjas - 08/12/2016 3:04 PM CDT Please do not close this encounter until this has been addressed. (prior auth approved/denied, prescriber refusal to complete prior auth or medication changed/discontinued) Prior Authorization needed on: Subutex 2mg Drug NDC: [id number] Insurance: [place] [id number] Rx BIN: [id number] Insurance phone #: Pharmacy Pharmacy Phone #: [phone] Pharmacy Fax #: [phone] Please let us know if the PA gets approved or denied or if medication is changed. Thank You, Nicole Borjas, [facility] documented in this encounter Plan of Treatment Upcoming Encounters Date Type Specialty Care Team Description 11/29/2021 Office Visit Wound Care Luis Camara, [place] [address] [place] [address] (Wo rk) 01/21/2022 Office Visit Gastroenterology Juanis Levi [address] [place] [phone] Luis Fernando Miles MD 516 [facility] [address] [place] [address] documented as of this encounter Visit Diagnoses Not on filedocumented in this encounter Care Teams Front Office Representative Relationship Specialty Start Date End Date [facility], [facility] PCP - General 07/14/16 12/06/[address] [place] [address] documented as of this encounter
--- OUTSIDE RECORDS SUMMARY | 2021-11-28 13:50 | XMS_ITS | Encounter Summary ---
:1980 Author Organization [place] Address [address] [place] [address] Care Team Providers Name Role Phone Clinic, [facility] Primary Care Provide r Reason for Visit Reason Onset Date Comments Abnormal Uterine Bleeding 08/29/2016 13 we eks today. Encounter Details Date Type Department Care Team Description 08/29/2016 Telephone [facility] Violeta Fagan Abnormal Uterine [facility] FARZANA Bailey CNCamryn Bleeding ( [address] weeks today.) [address] [place], [place] [address] [address] [place], [place] [phone] [address] (Work) [phone] Social History Tobacco Use Types Packs/Day Years Used Date Smoking Tobacco: Every Day Cigarettes 0.1 10 Smokeless Tobacco: Never Comments: 5 cigarettes a day Alcohol Use Standard Drinks/Week Comments Yes 0 (1 standard drink = 0.6 oz pure Stoppe d after found out alcohol) Sex Assigned at Date Recorded Female 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 [facility]. Tremayne Gilmore RN Telephone Encounter - Tremayne Price RN - 08/29/2016 1:41 PM CDT Pt called back to get scheduled for an US. Pt states she is bleeding very heavily, she states she is wear adult depends and had to change them 5 minutes apart. Pt advised to come into the [facility] ED with that heavy of bleeding. Pt is other line with [facility] trying to arrange a ride to the Hospital. She will call me back if not able to get ride. Tremayne Gilmore RN Telephone Encounter - Thais Morris LPN - 08/29/2016 1:35 PM CDT Phone call from Rn at [facility] patient would like to be evaluated [...] a high risk. I will call Violeta Rylan about this and she can write orders and they could be done here. Address Phone Fax E-Mail Primary [facility] [address] [place], [place] [address]E [facility] [address] ?? with Twins but at 8 weeks documented in this encounter Plan of Treatment Upcoming Encounters Date Type Specialty Care Team Description 11/29/2021 Office Visit Wound Care Luis Camara, [place] [address] [place], [place] [address] (Wo rk) 01/21/2022 Office Visit Gastroenterology Juanis Levi [address] [place] [phone] Luis Fernando Miles MD 516 [facility] [address] [place], [place] [address] documented as of this encounter Visit Diagnoses Diagnosis Vaginal bleeding in patient at less than 20 weeks gestation - Primary documented in this encounter Care Teams Roller Skate Assembler Relationship Specialty Start Date End Date Clinic, [facility] PCP - General 07/14/16 12/06/[address] [place] [address] documented as of this encounter
--- OUTSIDE RECORDS SUMMARY | 2021-11-28 13:50 | XMS_ITS | Encounter Summary ---
:1980 Author Organization [place] Address [address] [facility] [place] [address] Care Team Providers Name Role Phone Clinic, [facility] Primary Care Provide r Reason for Visit Reason Onset Date Comments Consult 07/18/2016 triage Encounter Details Date Type Department Care Team Description 07/18/2016 Telephone [facility] Anabelle Thomas ult (triage) Maternal Medicine GENARO Norris [place] [address] [facility] 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 documented as of this encounter Miscellaneous Notes Telephone Encounter - Anabelle Thomas, GENARO - 07/18/2016 2:26 PM CDT Phone call [...] Visit Wound Care Luis Camara, [place] [address] [place], [place] [address] (Wo rk) 01/21/2022 Office Visit Gastroenterology Juanis Levi [address] [place] [address] Luis Fernando Miles MD 516 [facility] 2[address] [place], [place] [address] documented as of this encounter Visit Diagnoses Not on filedocumented in this encounter Care Teams Histology Tech Relationship Specialty Start Date End Date Clinic, [facility] PCP - General 07/14/16 12/06/[address] [place] [address] documented as of this encounter
--- OUTSIDE RECORDS SUMMARY | 2021-11-28 13:50 | XMS_ITS | Encounter Summary ---
:1980 Author Organization [place] Address [facility] [address] Care Team Providers Name Role Phone Clinic, [facility] Primary Care Provide r Reason for Visit Reason Comments Vaginal Bleeding Encounter Details Date Type Department Care Team Description 08/29/2016 Emergency [facility] Jj Hermosillo, Abnormal vaginal bleeding; [facility] Emergency Dep t DO Threatened miscarriage [address] [facility] [place] [place] [address] [address]UC[address] [phone] [place] [address] (Wo rk) Social History Tobacco Use Types Packs/Day Years Used Date Smoking Tobacco: Every Day Cigarettes 0.1 10 Smokeless Tobacco: Never Comments: 5 cigarettes a day Alcohol Use Standard Drinks/Week Comments Yes 0 (1 standard drink = 0.6 oz pure Stoppe d after found out alcohol) Sex Assigned at Date Recorded Female 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 Date Last Reviewed: 10/19/2015 ?? [phone] [employer]. [address] [place] [address], [place] [address]. All rights reserved. This information is not [...] Comments: A-594 35 yo F vag bleed BayJj, DO - 08/29/2016 2:38 PM CDT History Chief Complaint: Vaginal Bleeding The history is provided by the patient. Stephani King is a 35 year old A4 female with a history of complications, anxiety, and depression who presents to the emergency department via EMS for evaluation of vaginal bleeding. The patient reports she is 13 weeks and follows at [facility]. She reports a history of complications, [...] uterus Past Surgical History: Breast surgery section Estate Conservator surgery Orthopedic surgery Thoracic surgery Family History: [...] yeast seen Chlamydia trachomatis:pending Neisseria gonorrhea:pending Interventions: 183 Potassium chloride 40 mEq PO Emergency Department [...] while in the emergency department, findings above. 183 I consulted with Mark Turner CNM, regarding the patient's history and presentation here in theemergency department. 1839 I rechecked the patient and discussed the [...] the evaluation for vaginal bleeding. Pleasesee the HPI for specifics. Her workup in the ED included an ultrasound and pelvic exam. Those results are above. I discussed the case with the patient's nurse fire hydrant operator out of [facility] at [facility]. They believe she can be discharged, but they will have their nurses call her and schedule a very close follow up appointment with them and/or internal medicine for consideration of a possible cerclage. Anticipatory guidance was given prior to discharge. Diagnosis: ICD-10-CM 1. Abnormal vaginal bleeding N93.9 2. Threatened miscarriage O20.0 Disposition: discharged to home I, Areli Morejon, am serving as a scribe on 08/29/2016 at 3:07 PM to personally document services performed by Jj Hermosillo DO based on my observations and the provider's statements to me. Areli Morejon 08/29/2016 [facility] Jj Hermosillo DO 08/29/16 222 documented in this encounter Plan of Treatment Upcoming Encounters Date Type Specialty Care Team Description 11/29/2021 Office Visit Wound Care Luis Camara DPM [address] [place] [address] (Wo rk) 01/21/2022 Office Visit Gastroenterology Juanis Levi [address] [place] [address] Luis Fernando Miles MD [address] [phone] documented as of this encounter Procedures Procedure [...] Neisseria gonorrhoea PCR (08/29/2016 5:30 PM CDT) Sprio Method Time Signature Specimen Vagina [facility] N Gonorrhea Negative NEG MICRO RAPID PCR [...] e Number MICRO RAPID TESTING LAB [address] [place] [address] [facility] [address] [place] [address] [facility] [phone] Chlamydia trachomatis PCR (08/29/2016 5:30 PM CDT) Component Value Ref Test Analysis Performed At Patholo gist Range Method Time Signature Specimen Vagina [facility] Chlamydia Negative NEG MICRO RAPID Trachomatis PCR Negative for C. trachomatis rRNA by town administrator mediated amplification. TESTING LAB A negative result [...] 7 5:42 (specimen) CDT PM CDT Jj Solomon Hermosillo DO LAB - MICRO GENERAL ORDERABL ES Performing Organization Address City/[facility]/ZIP [facility] [place]on [place] Number MICRO RAPID TESTING LAB [address] [place] [address] [facility] [address] [place], [place] [address], [facility] [phone] Wet prep (08/29/2016 5:30 PM CDT) Patholo gist Method Time Signature Specimen Vagina [facility] Wet Prep Few PMNs seen [place] No Trichomonas seen [facility] No yeast seen [facility] No clue cells seen Micro Report FINAL [place] Status 08/29/2016 [facility] Specimen Anatomical Collection Method Collection Time Receive d Time (Source) Location / / Volume Laterality Vaginal swab 08/29/2016 5:30 PM 7 5:41 (specimen) CDT PM CDT Jj Solomon [place] LAB - MICRO GENERAL ORDERABL ES Performing Organization Address [facility] Phon e Number [place] [address] [address] [place], [place] [address] [facility] [address] [place], [place] [address], [facility] [phone] US OB < 14 Weeks Single (08/29/2016 4:15 [...] again demise of a twin . GRETCHEN LEON MD Narrative 08/29/2016 4:26 PM CDT ULTRASOUND [...] an JEAN MARIE of 03/02/2017. Procedure Note Gretchen Leon MD - 08/29/2016Form atting of this note [...] again demise of a twin . GRETCHEN LEON MD Jj Hermosillo DO IMG US ORDERABLES ABO/Rh type and screen (08/29/2016 3:04 PM CDT) [facility] Method Time Signature ABO B [facility] RH(D) Pos [facility] Antibody Neg [place] Screen [facility] Test Valid [facility] Only At [facility] Specimen 09/01/2016 [place] Expires [facility] Specimen Anatomical Collection Method Collection Time Receive d Time (Source) Location / / Volume Laterality Blood specimen 08/29/2016 3:04 PM 017 5:13 (specimen) CDT PM CDT Jj Hermosillo DO LAB - BLOOD BANK TEST ORDER Performing Organization Address City/State/ZIP Code Phon e Number [place] [address] [place] [address] [facility] [address] [phone] (ABNORMAL) Basic metabolic panel (08/29/2016 3:04 PM CDT) [facility] Method Time Signature Sodium 136 133 - 144 [place] mmol/L [facility] Potassium 2.9 (L) 3.4 - 5.3 [place] mmol/L [facility] Chloride 104 94 - 109 [place] mmol/L [facility] Carbon Dioxide 23 20 - 32 [place] mmol/L [facility] Anion Gap 9 3 - 14 [place] mmol/L [facility] Glucose 88 70 - 99 [place] mg/dL [facility] Urea Nitrogen 7 7 - 30 [place] mg/dL [facility] Creatinine 0.70 0.52 - [place] 1.04 [facility] mg/dL HOSPITAL GFR Estimate >90 >60 [place] Non GFR Calc mL/min/1. [facility] 7m2 [facility] GFR Estimate >90 >60 [place] If Black GFR Calc mL/min/1. [facility] 7m2 HOSPITAL Calcium 8.2 (L) 8.5 - [place] 10.1 [facility] mg/dL HOSPITAL Specimen Anatomical Collection Method Collection Time Receive d Time (Source) Location / / Volume Laterality Blood specimen 08/29/2016 3:04 PM 017 3:22 (specimen) CDT PM CDT Jj Hermosillo DO LAB - BLOOD ORDERABLES Performing Organization Address City/State/ZIP Code Phon e Number [place] [address] [address] [place], [place] [address] [facility] [address] [place], [place] [address] [place] [address] (ABNORMAL) CBC with platelets differential (08/29/2016 3:04 PM CDT) [facility] gist Method Time Signature WBC 6.6 4.0 - [place] 11.0 [facility] 10e9/L [facility] RBC Count 3.48 (L) 3.8 - 5.2 [place] 10e12/L [facility] Hemoglobin 10.9 (L) 11.7 - [place] 15.7 g/dL [facility] Hematocrit 31.9 (L) 35.0 - [place] 47.0 % [facility] MCV 92 78 - 100 [facility] MCH 31.3 26.5 - [place] 33.0 pg [facility] MCHC 34.2 31.5 - [place] 36.5 g/dL [facility] RDW 12.2 10.0 - [place] 15.0 % [facility] Platelet Count 163 150 - 450 [place] 10e9/L [facility] Diff Method Automated [place] Method [facility] % Neutrophils 57.1 % [facility] % Lymphocytes 31.2 % [facility] % Monocytes 7.4 % [facility] % Eosinophils 3.8 % [facility] % Basophils 0.2 % [facility] % Immature 0.3 % [place] Granulocytes [facility] Nucleated RBCs 0 0 /100 [facility] Absolute 3.8 1.6 - 8.3 [place] Neutrophil 10e9/L [facility] Absolute 2.1 0.8 - 5.3 [place] Lymphocytes 10e9/L [facility] Absolute 0.5 0.0 - 1.3 [place] Monocytes 10e9/L [facility] Absolute 0.3 0.0 - 0.7 [place] Eosinophils 10e9/L [facility] Absolute 0.0 0.0 - 0.2 [place] Basophils 10e9/L [facility] Abs Immature 0.0 0 - 0.4 [place] Granulocytes 10e9/L [facility] Absolute 0.0 [place] Nucleated RBC [facility] Specimen Anatomical Collection Method Collection Time Receive d Time (Source) Location / / Volume Laterality Blood specimen 08/29/2016 3:04 PM 017 3:22 (specimen) CDT PM CDT Jj Hermosillo DO LAB - BLOOD ORDERABLES Performing Organization Address City/State/ZIP Code Phon e Number [place] [address] [address] [place] [address] [phone] documented in this encounter Visit Diagnoses Diagnosis [...] bolus., Starting Zoe 08/29/16 at 1517, Until Zeo 08/29/16 at 2051 PRN Medication Order 08/27/2016 [...] 1515 documented in this encounter Care Teams Radiation Oncology Manager Relationship Specialty Start Date End Date [facility] PCP - General 07/14/16 12/06/[address] [place], [place] [address] [address] documented as of this encounter
--- OUTSIDE RECORDS SUMMARY | 2021-11-28 13:50 | XMS_ITS | Encounter Summary ---
:1980 Author Organization [place] Address [address] [facility] [place] [address] Care Team Providers Name Role Phone Clinic, [facility] Primary Care Provide r Reason for Visit Reason Onset Date Comments Clinic Care Coordination - Follow-up 09/02/2016 NOB appt Encounter Details Date Type Department Care Team Description 09/02/2016 Telephone [facility] Women's Nurse, [facility] Clinic Care Coordination Clinic [place] - Follow-up (NOB appt) [address] [place] [facility] [address],[facility] [address] [place] [address] Social History Tobacco Use Types Packs/Day Years Used Date Smoking Tobacco: Every Day Cigarettes 0.1 10 Smokeless Tobacco: Never Comments: 5 cigarettes a day Alcohol Use Standard Drinks/Week Comments Yes 0 (1 standard drink = 0.6 oz pure Stoppe d after found out alcohol) Sex Assigned at Date Recorded Female 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 Telephone Encounter - May Magallanes RN - 09/02/2016 8:53 AM CDT ----- Message from Mark Turner APRN CNM sent at 08/29/2016 6:33 PM CDT ----- Can we call Stephani and get her re-scheduled for new OB visit [place]? I received a call from [facility] ED, MD, where patient was being seen for vaginal bleeding after intercourse, so she should have follow-up in clinic. Complex medical and obstetric history. Thanks, [place] documented in this encounter Plan of Treatment Upcoming Encounters Date Type Specialty Care Team Description 11/29/2021 Office Visit Wound Care Luis Camara DPM [address] [place] [address] (Wo rk) 01/21/2022 Office Visit Gastroenterology Juanis Levi [address] [place] [phone] Luis Fernando Miles MD 516 [facility] 2[address] [place] [address] documented as of this encounter Visit Diagnoses Not on filedocumented in this encounter Care Teams Grades 9 Through 12 Teacher Relationship Specialty Start Date End Date Clinic, [facility] PCP - General 07/14/16 12/06/[address] [place] [address] documented as of this encounter
--- OUTSIDE RECORDS SUMMARY | 2021-11-28 13:50 | XMS_ITS | Encounter Summary ---
:1980 Author Organization [place] Address [address] [facility] [place] [address] Care Team Providers Name Role Phone Clinic, [facility] Primary Care Provide r Reason for Visit Reason Onset Date Comments Clinic Care Coordination - Follow-up 08/30/2016 NOB [place] Encounter Details Date Type Department Care Team Description 08/30/2016 Telephone [facility] Women[facility] Nurse, p [facility] Clinic Care Coordination Clinic [place] - Follow-up (NOB [place]) [address] [place] Professional Bldg [facility] [address],[facility] [address] [place] [address] Social History Tobacco Use Types Packs/Day Years Used Date Smoking Tobacco: Every Day Cigarettes 0.1 10 Smokeless Tobacco: Never Comments: 5 cigarettes a day Alcohol Use Standard Drinks/Week Comments Yes 0 (1 standard drink = 0.6 oz pure Stoppe d after found out alcohol) Sex Assigned at Date Recorded Female 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/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 documented as of this encounter Miscellaneous Notes [...] Visit Wound Care Luis Camara DPM [address] [place], [place] [address] (Wo rk) 01/21/2022 Office Visit Gastroenterology Juanis Levi [address] [place] [address] Luis Fernando Miles MD [address] [facility] [address] [place] [address] documented as of this encounter Visit Diagnoses Not on filedocumented in this encounter Care Teams Structural Steel Equipment Erector Relationship Specialty Start Date End Date Clinic, [facility] PCP - General 07/14/16 12/06/[address] [place] [address] [id number] documented as of this encounter
--- OUTSIDE RECORDS SUMMARY | 2021-11-28 13:50 | XMS_ITS | Encounter Summary ---
:1980 Author Organization [place] Address [address] [facility] [place] [address] Care Team Providers Name Role Phone Clinic, [facility] Primary Care Provide r Reason for Visit Reason Onset Date Comments Prior Auth - Medication 08/15/2016 Subutex 2 mg Encounter Details Date Type Department Care Team Description 08/15/2016 Telephone [facility] Alfredo Pri or Auth - Medication Clinic Ashly VÁSQUEZ (Subutex 2 mg ) [address] [place] [address] [place] [phone] (Wo rk) Social History Tobacco Use Types Packs/Day Years Used Date Smoking Tobacco: Every Day Cigarettes 0.1 10 Smokeless Tobacco: Never Comments: 5 cigarettes a day Alcohol Use Standard Drinks/Week Comments Yes 0 (1 standard drink = 0.6 oz pure Stoppe d after found out alcohol) Sex Assigned at Date Recorded Female 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 Staff called [facility] at [phone]. Staff informed pharmacist regarding the above information and stated he [facility] and he will run the JENIFFER montesinos. Lupe Lantigua MA Telephone Encounter - Mark Roldan - 08/16/2016 12:49 PM CDT Prior Authorization: APPROVED Approved as of: 08/12/16 thru 08/16/16 Mark Roldan August 16, 2016 at 12:51 PM Telephone Encounter - Sarah Calvert MA - 08/16/2016 8:54 AM CDT Prior Authorization has been submitted via [facility] as urgent request beatty #[id number] Staff will call plan later today at [phone] to follow up Sarah Calvert MA Telephone Encounter - Dora Merchant - 08/16/2016 7:52 AM CDT Covermeds Beatty: [id number] Dora Merchant Drafter Chief Design Telephone Encounter - Mark Roldan - 08/15/2016 12:54 PM CDT Prior Authorization needed on: [place] Medication: Subutex Dose: 2 mg Insurance Name: [place] Insurance Phone: Not listed [employer] placed form in provider's folder. Mark Roldan August 15, 2016 at 12:55 PM documented in this encounter Plan of Treatment Upcoming Encounters Date Type Specialty Care Team Description 11/29/2021 Office Visit Wound Care Luis Camara [place] [address] [place] [address] (Wo rk) 01/21/2022 Office Visit Gastroenterology Juanis Levi [address] [place] [phone] Luis Fernando Miles MD 516 [facility] [address] [place] [address] documented as of this encounter Visit Diagnoses Not on filedocumented in this encounter Care Teams Finish Opener Relationship Specialty Start Date End Date Clinic, [facility] PCP - General 07/14/16 12/06/[address] [place] [address] documented as of this encounter
--- OUTSIDE RECORDS SUMMARY | 2021-11-28 13:50 | XMS_ITS | Encounter Summary ---
:1980 Author Organization [place] Address [address] [place] [address] Care Team Providers Name Role Phone Clinic, [facility] Primary Care Provide r Reason for Visit Reason Onset Date Comments Appointment 08/12/2016 Encounter Details Date Type Department Care Team Description 08/12/2016 Telephone [facility] Nithya Alfredo MD Appointment [place] [address] [facility] [address] [place], [place] [address] [phone] [place] [phone] Social History Tobacco Use Types Packs/Day Years Used Date Smoking Tobacco: Every Day Cigarettes 0.1 10 Smokeless Tobacco: Never Comments: 5 cigarettes a day Alcohol Use Standard Drinks/Week Comments Yes 0 (1 standard drink = 0.6 oz pure Stoppe d after found out alcohol) Sex Assigned at Date Recorded Female 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 YES Call taken on 08/12/2016 at 10:28 AM by Dora Merchant documented in this encounter Plan of Treatment Upcoming Encounters Date Type Specialty Care Team Description 11/29/2021 Office Visit Wound Care Luis Camara DPM [address] [place], [place] [phone] (Wo rk) 01/21/2022 Office Visit Gastroenterology Juanis Levi [address] [place] [phone] Luis Fernando Miles MD 516 [facility] [address]A [place], [place] [phone] documented as of this encounter Visit Diagnoses Not on filedocumented in this encounter Care Teams Wastewater Design Engineer Relationship Specialty Start Date End Date Clinic, [facility] PCP - General 07/14/16 12/06/[address] [place] [address] documented as of this encounter
--- OUTSIDE RECORDS SUMMARY | 2021-11-28 13:50 | XMS_ITS | Encounter Summary ---
:1980 Author Organization [place] Address [address] [place] [address] Care Team Providers Name Role Phone [facility] Primary Care Provide r Luis Fernando Magana Primary Care Provider [facility] Primary Care Provide r Tatyana Haas OUTGOING INSPECTOR TELEGRAPH EDITOR Unavailable [phone] Stephani Pina OUTGOING INSPECTOR TELEGRAPH EDITOR Unavailable [phone] Tatyana Haas OUTGOING INSPECTOR TELEGRAPH EDITOR Unavailable Stephani Pina OUTGOING INSPECTOR TELEGRAPH EDITOR Unavailable [phone] Juanis Levi Primary Care Provider Elsa Yeh RN Unavailable Unavailable Rogelio Treadwell MD Unavailable [phone] Luis Camara DPM Unavailable [phone] Camryn Christina MD Unavailable Sintia Lange PA-C Unavailable Luis Fernando Miles MD Unavailable [phone] Reason for Referral - Closed Specialty Diagnoses / Procedures Referred By Contact Refer red To Contact Diagnoses related condition, unspecified trimester Nidia Vincent [facility] [address] [place] [address] Referral ID Status Reason Start Date Expiration Date Visits Requ ested Visits Authorized [id number] Closed 07/17/2016 07/17/2017 1 1 Encounter Details Date Type Department Care Team Description 07/17/2016 Orders Only [facility] Andreishmael Apri l related Maternal [facility] condition, un specified [facility] Center MEDICAL trimester (Primary Dx) [place] [address] [address] [place], [place] [address] [address] [place], [place] [phone] (Work) [phone] Social History Tobacco Use Types Packs/Day Years Used Date Smoking Tobacco: Every Day Cigarettes 0.1 10 Smokeless Tobacco: Never Comments: 5 cigarettes a day Alcohol Use Standard Drinks/Week Comments No 0 (1 standard drink = 0.6 oz pure alcoho l) Sex Assigned at Date Recorded Female 01/14/2020 10:57 AM PLANT CHIEF documented as of this encounter Plan of Treatment Upcoming Encounters Date Type Specialty Care Team Description 11/29/2021 Office Visit Wound Care Luis Camara DPM [address] [place], [place] [phone] (Wo rk) 01/21/2022 Office Visit Gastroenterology Juanis Levi [address] [place] [phone] Luis Fernando Miles MD [address] [address] Scheduled Referrals Name Type Priority Associated Diagnoses [...] documented as of this encounter Care Teams Clean In Places Operator Relationship Specialty Start Date End Date [facility], [facility] PCP - General 07/14/[address] [address] Luis Fernando Magana PCP - General Family Practice 12/07/16 01/19/[address] [address] [facility], [facility] PCP - General 01/20/[address] [address] Juanis Levi PCP - General Addiction Medicine 06/29/[address] [place] [phone] Tatyana Haas, Assigned PCP 08/02/18 01/29/20 OUTGOING INSPECTOR TELEGRAPH EDITOR [facility] [address] [facility] [address] [place] [address] Stephani Pina, Assigned PCP 01/30/20 12/30/20 OUTGOING INSPECTOR TELEGRAPH EDITOR [address] [facility] 700 [place] [address] Tatyana Haas, Assigned PCP 12/31/20 02/24/21 OUTGOING INSPECTOR TELEGRAPH EDITOR [facility] [address] [facility] [address] [place] [address] Stephani Pina, Assigned PCP 02/25/21 OUTGOING INSPECTOR TELEGRAPH EDITOR [address] [facility] 700 [place] [address] Elsa Yeh, Registered Nurse Infectious Diseases 07/25/21 RN Rogelio Treadwell Assigned Musculoskeletal 08/04/21 MD August Provider [address] [place] [address] Luis Camara MD Podiatry 08/16/21 [place] [address] [place] [address] Camryn Christina Assigned Surgical 09/01/21 09/07/21 MD Lexie Provider 420 [facility] 195 [place] [address] Sintia Lange PA-C Assigned Surgical 09/08/[address] [facility] 4TH [place] [address] Landon Warren MD Gastroenterology 11/21/21 MD Luis Fernando 516 [facility] [address] [place] [address] documented as of this encounter
--- OUTSIDE RECORDS SUMMARY | 2021-11-28 13:50 | XMS_ITS | Encounter Summary ---
:1980 Author Organization [place] Address [address] [facility] [place] [address] Care Team Providers Name Role Phone Clinic, [facility] Primary Care Provide r Luis Fernando Magana Primary Care Provider Reason for Visit Reason Onset Date Comments Vaginal Bleeding 07/18/2016 8 weeks wit h weeks, very high ristk pregancy, she is bleeding heav mateo and passed 6-7 clots so far Encounter Details Date Type Department Care Team Description 07/18/2016 [facility] Mark Turner, Vaginal Bleeding (8 [facility] MACHINE SETUP OPERATOR CNM weeks with [facility] weeks, very high ristk [address] SPECIALISTS pregancy, she is [place] Professional [address] bleeding heavily and Bldg [facility] [address] [place], [place] passed 6-7 clots so 3rd Flr,Ronnie [address] [address] far) [place], [place] [phone] [address] (Work) [phone] Social History Tobacco Use Types Packs/Day Years Used Date Smoking Tobacco: Every Day Cigarettes 0.1 10 Smokeless Tobacco: Never Comments: 5 cigarettes a day Alcohol Use Standard Drinks/Week Comments No 0 (1 standard drink = 0.6 oz pure alcoho l) Sex Assigned at Date Recorded Female 01/14/2020 10:57 AM DIRECTOR SUPPLIER QUALITY documented as of this encounter Plan of Treatment Upcoming Encounters Date Type Specialty Care Team Description 11/29/2021 Office Visit Wound Care Luis Camara, [place] [address] [place] [address] (Wo rk) 01/21/2022 Office Visit Gastroenterology Juanis Levi [address] [place] [address] Luis Fernando Miles MD 516 [facility] 2A [place], [place] [address] documented as of this encounter Visit Diagnoses Not on filedocumented in this encounter Care Teams Steam Conditioner Operator Relationship Specialty Start Date End Date Clinic, [facility] PCP - General 07/14/16 12/06/[address] [place] [address] Luis Fernando Magana PCP - General Family Practice 12/07/16 01/19/18 [facility] [address] [place], [place] [phone] documented as of this encounter
--- OUTSIDE RECORDS SUMMARY | 2021-11-28 13:50 | XMS_ITS | Encounter Summary ---
:1980 Author Organization [place] Address [address] [place] [address] Care Team Providers Name Role Phone Clinic, [facility] Primary Care Provide r Reason for Visit - Closed Specialty Diagnoses / Procedures Referred By Contact Refer red To Contact Diagnoses Supervision of high-risk , first trimester Ur Maternal Med [address] [place], [place] [address] Referral ID Status Reason Start Date Expiration Date Visits Requ ested Visits Authorized [id number] Closed 08/22/2016 08/22/2017 1 1 Encounter Details Date Type Department Care Team Description 08/22/2016 Office Visit [facility] Ilana Patel MD [address] [address] Canceled (Patient) Maternal Medicine Italia Galarza DO [address] [facility] [address] [place] [address] [facility] [address] [place], [place] [address] Social History Tobacco Use Types Packs/Day Years Used Date Smoking Tobacco: Every Day Cigarettes 0.1 10 Smokeless Tobacco: Never Comments: 5 cigarettes a day Alcohol Use Standard Drinks/Week Comments Yes 0 (1 standard drink = 0.6 oz pure Stoppe d after found out alcohol) Sex Assigned at Date Recorded Female 01/14/2020 10:57 AM WEAVE DEFECT CHARTING CLERK documented as of this encounter Plan of Treatment Upcoming Encounters Date Type Specialty Care Team Description 11/29/2021 Office Visit Wound Care Luis Camara DPM 909 [place] [address] (Wo rk) 01/21/2022 Office Visit Gastroenterology Juanis Levi [address]50 [place] [phone] Luis Fernando Miles MD 516 [facility] 2A [place], [place] [address] documented as of this encounter Visit Diagnoses Not on filedocumented in this encounter Care Teams Ginning Operator Relationship Specialty Start Date End Date Clinic, [facility] PCP - General 07/14/16 12/06/[address] [place] [address] documented as of this encounter
--- OUTSIDE RECORDS SUMMARY | 2021-11-28 13:50 | XMS_ITS | Encounter Summary ---
:1980 Author Organization [place] Address [facility] [place] [address] Care Team Providers Name Role Phone Clinic, [facility] Primary Care Provide r Encounter Details Date Type Department Care Team Description 07/18/2016 Care Coordination [facility] Anabelle Thomas Maternal Medicine GENARO Norris [address] [address] Social History Tobacco Use Types Packs/Day Years Used Date Smoking Tobacco: Every Day Cigarettes 0.1 10 Smokeless Tobacco: Never Comments: 5 cigarettes a day Alcohol Use Standard Drinks/Week Comments No 0 (1 standard drink = 0.6 oz pure alcoho l) Sex Assigned at Date Recorded Female 01/14/2020 10:57 AM 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 documented as of this encounter Plan of Treatment Upcoming Encounters Date Type Specialty Care Team Description 11/29/2021 Office Visit Wound Care Luis Camara DPM [address] [place] [address] (Wo rk) 01/21/2022 Office Visit Gastroenterology Juanis Levi [address] [place] [phone] Luis Fernando Miles MD [address] [address] documented as of this encounter Visit Diagnoses Not on filedocumented in this encounter Care Teams Face Cleaner Relationship Specialty Start Date End Date Clinic, [facility] PCP - General 07/14/16 12/06/[address] [place] [address] documented as of this encounter
--- OUTSIDE RECORDS SUMMARY | 2021-11-28 13:50 | XMS_ITS | Encounter Summary ---
:1980 Author Organization [place] Address [facility] [place] [address] Care Team Providers Name Role Phone Clinic, [facility] Primary Care Provide r Reason for Visit Reason Comments Vaginal Bleeding Encounter Details Date Type Department Care Team Description 07/28/2016 Emergency [facility] Christopher Ji ed miscarriage in early ; [facility] Emergency Dep t MD Bryon Spontaneous miscarriage [address] [facility] EM[facility]Y [facility] [phone] [address] [facility] [phone] [place], [place] [address] (Wo rk) Social History Tobacco Use Types Packs/Day Years Used Date Smoking Tobacco: Every Day Cigarettes 0.1 10 Smokeless Tobacco: Never Comments: 5 cigarettes a day Alcohol Use Standard Drinks/Week Comments No 0 (1 standard drink = 0.6 oz pure alcoho l) Sex Assigned at Date Recorded Female 01/14/2020 10:57 AM MANAGEMENT ARCHITECT documented as of this encounter Last [...] seen by your regular doctor, or an COMMERCIAL REVIEW APPRAISER doctor, in 48-72 hours for a repeat [...] to see your regular doctor, or an COMMERCIAL REVIEW APPRAISER doctor, within 2-3 days. ??? You should [...] contain Tylenol?? (acetaminophen), including Vicodin??, Tylenol #3??, Corn??, Lortab??, and Percocet??. You should not take [...] by 30 tablet 6 12/10/2012 08/30/19 17 Ftsajzub-Jyf-Hk-FA mouth daily ( VITAMINS) 0.8 MG TABSIndications: [...] po Levothyroxine (synthroid, levothroid) 125 mcg tablet fnhztatn-fbf-tp-fa ( vitamins) 0.8 mg tabs [discontinued] vitamins po Past Medical History: Anxiety Depressive disorder Uncomplicated opioid dependence (H) Past Surgical History: Breast surgery PARTS REMOVER surgery Orthopedic surgery Thoracic surgery Family History: [...] HGB 11.7, PLT 195 HCG Quantitative blood: 88648 (H) Rh type: B, RH(D) Pos Emergency Department Course: Nursing notes and vitals reviewed. I performed an exam of the patient as documented above. The above workup was undertaken. 1105: I performed a pelvic exam. 1233: Discussed the patient with Dr. Sanchez from [facility]. 1355: I rechecked the patient [...] 1. Threatened miscarriage Disposition: discharged to home I, Simone Delgado, am serving as a scribe on 07/28/2016 at 10:07 AM to personally document services performed by Christopher Ji MD, based on my observations and the provider's statements to me. [facility] EMERGENCY DEPARTMENT Christopher Ji MD 08/03/162006 documented in this encounter Plan of Treatment Upcoming Encounters Date Type Specialty Care Team Description 11/29/2021 Office Visit Wound Care Luis Camara DPM [address] [place] [address] (Wo rk) 01/21/2022 Office Visit Gastroenterology Juanis Levi [address] [place] [address] Luis Fernando Miles MD [address] [facility] [address] [place], [place] [id number] documented as of this encounter Procedures Procedure [...] Patholo gist Method Time Signature ABO B [facility] RH(D) Pos [facility] Blood Canceled, MILLER Screen Test [facility] Blood Bank Not suitable for Rh Immune Globulin MILLER Comment Patient is Rh positive [facility] Amount of RHIG Not suitable MILLER Required for [facility] Globulin Specimen Anatomical Collection Method Collection Time Receive d Time (Source) Location / / Volume Laterality 07/28/2016 10:25 07/28/2016 AM CDT 10:39 AM CDT Christopher Ji MD LAB - BLOOD BANK TEST ORDER Performing Organization Address City/State/ZIP Code Phon e Number [facility] [address] [place], [place] [address] HOSPITAL [facility] [address] [place], [place] [address], [facility] [phone] Rh type (07/28/2016 10:25 AM CDT) Analysis Performed At Patho logist Time Signature ABO B [facility] RH(D) Pos [facility] Specimen 07/31/2016 [facility] Specimen Anatomical Collection Method Collection Time Receive d Time (Source) Location / / Volume Laterality Blood specimen 07/28/2016 10:25 7 (specimen) AM CDT 10:31 AM CDT Christopher Ji MD LAB - BLOOD BANK TEST ORDER Performing Organization Address City/[facility]/ZIP Code Phon e Number M [facility] [address] [place], [place] [address] [facility] [address] [place], [place] [address], [facility] [phone] (ABNORMAL) HCG QUANTitative (07/28/2016 10:25 AM CDT) [facility] Method Time Signature HCG Quantitative 77,252 0 - 5 MILLER Serum (H) IU/L [facility] Comment: Specimen run with a dilution Specimen Anatomical Collection Method Collection Time Receive d Time (Source) Location / / Volume Laterality Blood specimen 07/28/2016 10:25 7 (specimen) AM CDT 10:30 AM CDT Christopher Ji MD LAB - BLOOD ORDERABLES Performing Organization Address City/[facility]/ZIP [facility] Phon e Number [facility] [address] [place], [place] [address] [place] [address] [address] [place], [place] [address], [facility] [phone] (ABNORMAL) CBC with platelets differential (07/28/2016 10:25 AM CDT) [facility] Method Time Signature WBC 7.1 4.0 - MILLER 11.0 [facility] 10e9/L [facility] RBC Count 3.77 (L) 3.8 - 5.2 [place]ER 10e12/L [facility] Hemoglobin 11.7 11.7 - MILLER 15.7 g/dL [facility] Hematocrit 35.6 35.0 - MILLER 47.0 % [facility] MCV 94 78 - 100 [facility] MCH 31.0 26.5 - MILLER 33.0 pg [facility] MCHC 32.9 31.5 - MILLER 36.5 g/dL [facility] RDW 12.9 10.0 - MILLER 15.0 % [facility] Platelet Count 195 150 - [address] [address] [place] [address] Diff Method Automated [employer] % Neutrophils 60.2 % [facility] % Lymphocytes 31.4 % [facility] % Monocytes 4.7 % [facility] % Eosinophils 3.1 % [facility] % Basophils 0.3 % [facility] % Immature 0.3 % M[facility]ER Granulocytes [facility] Nucleated RBCs 0 0 /100 [facility] Absolute 4.3 1.6 - 8.3 M[facility]ER Neutrophil 10e9/L [facility] Absolute 2.2 0.8 - 5.3 [facility]ER Lymphocytes 10e9[facility] Absolute 0.3 0.0 - 1.3 [facility] Monocytes 10e9[facility] Absolute 0.2 0.0 - 0.7 [facility] Eosinophils e9[facility] Absolute 0.0 0.0 - 0.2 [facility] Basophils 10e9/[facility] Abs Immature 0.0 0 - 0.[address] [place] Granulocytes [address] [place] [address] Absolute 0.0 MILLER Nucleated RBC [facility] Specimen Anatomical Collection Method Collection Time Receive d Time (Source) Location / / Volume Laterality Blood specimen 07/28/2016 10:25 7 (specimen) AM CDT 10:30 AM CDT Christopher Ji MD LAB - BLOOD ORDERABLES Performing Organization Address City/State/ZIP Code Phon e Number M [place] [address] [place] [address] [facility] [address] [phone] Rho (D) immune globulin (RhoGam) Lab Study (07/28/2016 10:24 AM CDT) [facility] Method Time Signature Rhogam Order Order received MILLER See Rhogam Study/Suitability [facility] Specimen Anatomical Collection Method Collection Time Receive d Time (Source) Location / / Volume Laterality 07/28/2016 10:24 07/28/2016 AM CDT 10:25 AM CDT Christopher Ji MD LAB - BLOOD BANK PRODUCT ORD ER Performing Organization Address City/State/ZIP Code Phon e Number M [facility] [address] [place], [place] [address] [facility] [address] [place], [place] [address] [phone] documented in this encounter Visit Diagnoses Diagnosis [...] Rho (D) immune globulin (RhoGam) based on labora tory results and will enter appropriate dosing order. If appropriate dose is greater than the standard dose (300 mcg), provider will be notified. NO Rho (D) immune globulin (RhoGam) needed - mother INELIGIBLE CONTINUOUS PRN, Starting on 07/28/16 at 1101, Until 07/28/16 at 1619, NO Rho (D) immune globulin (RhoGam) needed - mother INELIGIBLE. This order was placed by Blood Bank based on Laboratory testing and a provider order. documented in this encounter Care Teams Tobacco Drummer Relationship Specialty Start Date End Date Clinic, [facility] PCP - General 07/14/16 12/06/[address] [place] [address] documented as of this encounter
--- OUTSIDE RECORDS SUMMARY | 2021-11-28 13:50 | XMS_ITS | Encounter Summary ---
:1980 Author Organization [place] Address [address] [facility] [place] [address] Care Team Providers Name Role Phone Clinic, [facility] Primary Care Provide r Reason for Visit Reason Comments Addiction Problem Encounter Details Date Type Department Care Team Description 08/12/2016 Office Visit [facility] Edgar Alfredo Uncomplic ated opioid dependence (H); Clinic Ashly Gauthier MD Major depressive disorder, recurrent epi sode, moderate (H) [address] [place] [address] [place] [phone] Social History Tobacco Use Types Packs/Day Years Used Date Smoking Tobacco: Every Day Cigarettes 0.1 10 Smokeless Tobacco: Never Comments: 5 cigarettes a day Alcohol Use Standard Drinks/Week Comments Yes 0 (1 standard drink = 0.6 oz pure Stoppe d after found out alcohol) Sex Assigned at Date Recorded Female 01/14/2020 10:57 AM PENSION CONSULTANT documented as of this encounter Last [...] TWINS; ONE ; OTHER VIABLE GOING TO SINGLE NEEDLE TUFTING 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 FEELING OK SUBUTEX DOSE OK NO CRAVING, [...] been going to recovery meetings:not at all. [place] [employer] Data Base Reviewed: YES; [...] BREAST SURGERY ABcess drained ??? SECTION ??? SECOND WORKER SURGERY ??? ORTHOPEDIC SURGERY ??? THORACIC [...] Take 1 tablet by mouth daily ??? Nzaggdav-Tza-Qy-FA ( VITAMINS) 0.8 MG TABS Take 1 [...] Panel 13 Result Value Ref Range Cannabinoids (99-lyc-4-cwycgwf-2-NRR) NDET ng/mL Not Detected Cutoff for a [...] be used for medical purposes only. Order [id number] for confirmation or individual confirmation tests to [facility]. 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 FOR SPECIMEN TECHNICIAN USE OF HIGH RISK MEDICATION High Risk [...] visit in 2 MONTHS Edgar Alfredo MD [facility] documented in this encounter Plan of Treatment Upcoming Encounters Date Type Specialty Care Team Description 11/29/2021 Office Visit Wound Care Luis Camara, [place] [address] [place] [address] (Wo rk) 01/21/2022 Office Visit Gastroenterology Juanis Levi [address] [place] [address] Luis Fernando Miles MD [address] [facility] [address] [place], [place] [address] documented as of this encounter Procedures Procedure [...] At Signature Cannabinoids Not Detected NDET LAB (50-xpe-5-carboxy- Cutoff for a negative cannabinoid is 50 [...] be used for medical purposes only. Order [id number] for confirmation or individual confirmation tests to [facility]. (A) Specimen Anatomical Collection Method Collection Time Receive d Time (Source) Location / / Volume Laterality Urine specimen 08/12/2016 2:28 PM 017 2:29 (specimen) CDT PM CDT Edgar Alfredo MD LAB - URINE ORDERABLES Performing Organization Address City/State/[place] [address] [facility] [address] [place] [address] [address] [facility] documented in this encounter Visit Diagnoses Diagnosis Uncomplicated opioid dependence (H) Opioid type dependence, unspecified Major depressive disorder, recurrent epi sode, moderate (H) Major depressive disorder, recurrent epi sode, moderate documented in this encounter Care Teams Activity Specialist Relationship Specialty Start Date End Date Clinic, [facility] PCP - General 07/14/16 12/06/16 [facility] [place] [address] documented as of this encounter
--- OUTSIDE RECORDS SUMMARY | 2021-11-28 13:51 | XMS_ITS | Encounter Summary ---
:1980 Author Organization [place] Address [address] [facility] [place] [address] Care Team Providers Name Role Phone System, Provider Not In Primary Care Provider Unavailable Reason for Visit Reason Onset Date Comments Medication Request 01/01/2016 Bridge for Subutex Encounter Details Date Type Department Care Team Description 01/01/[address] [facility] Edgar Alfredo, [facility] ication Request Clinic Ashly VÁSQUEZ (Bridge for Subutex) [address] [place] [address] [place] [address] (Wo rk) Social History Tobacco Use Types Packs/Day Years Used Date Smoking Tobacco: Every Day Cigarettes 0.1 10 Smokeless Tobacco: Never Comments: 5 cigarettes a day Alcohol Use Standard Drinks/Week Comments No 0 (1 standard drink = 0.6 oz pure alcoho l) Sex Assigned at Date Recorded Female 01/14/2020 10:57 AM BLACK LEATHER TRIMMER documented as of this encounter Miscellaneous Notes Telephone Encounter - Edgar Alfredo MD - 01/01/2016 12:39 PM CST Bridge called in Patient notified K LEATHER TRIMMER Telephone Encounter - Dora Merchant - 01/01/2016 12:05 PM CST Incoming call from pt checking on the status of request below. Thank you, Dora Merchant [facility] K LEATHER TRIMMER Telephone Encounter - SherwindaveMark - 01/01/2016 9:16 AM CST Reason for Call: Bridge for Subutex Detailed comments: pt can't make her appt today, its reschedule to 01/07, pt 's requesting a bridge for Subutex Phone Number Patient can be reached at: Home number on file [phone] (home) Best Time: anytime Can we leave a detailed message on this number? YES Call taken on 01/01/2016 at 9:16 AM by Mark Roldan Thank you, Mark Roldan [facility] K LEATHER TRIMMER documented in this encounter Plan of Treatment Upcoming Encounters Date Type Specialty Care Team Description 11/29/2021 Office Visit Wound Care Luis Camara DPM [address] [place] [address] (Wo rk) 01/21/2022 Office Visit Gastroenterology Juanis Levi [address] [place] [phone] Luis Fernando Miles MD [address] [facility] [address] [place] [address] documented as of this encounter Visit Diagnoses Diagnosis Uncomplicated opioid dependence (H) - Pr imary Opioid type dependence, unspecified documented in this encounter Care Teams Manager Civil Relationship Specialty Start Date End Date System, Provider Not In PCP - General Clinic 08/12/14 07/13/16 documented as of this encounter
--- OUTSIDE RECORDS SUMMARY | 2021-11-28 13:51 | XMS_ITS | Encounter Summary ---
:1980 Author Organization [place] Address [address] [facility] [place] [address] Care Team Providers Name Role Phone System, Provider Not In Primary Care Provider Unavailable Reason for Visit Reason Onset Date Comments Erroneous encounter-disregard 02/12/2016 Encounter Details Date Type Department Care Team Description 02/12/[address] [facility] Edgar Alfredo ERRONEOUS Clinic Ashly Gauthier MD ENCOUNTER--DISREGARD [address] [place] (Primary Dx) [address] [place] [address] Social History Tobacco Use Types Packs/Day Years Used Date Smoking Tobacco: Every Day Cigarettes 0.1 10 Smokeless Tobacco: Never Comments: 5 cigarettes a day Alcohol Use Standard Drinks/Week Comments No 0 (1 standard drink = 0.6 oz pure alcoho l) Sex Assigned at Date Recorded Female 01/14/2020 10:57 AM REGIONAL ENVIRONMENTAL MANAGER documented as of this encounter Progress Notes Edgar Alfredo MD - 02/12/2016 2:34 PM CST This encounter was opened in error. Please disregard. ONAL ENVIRONMENTAL MANAGER documented in this encounter Plan of Treatment Upcoming Encounters Date Type Specialty Care Team Description 11/29/2021 Office Visit Wound Care Luis Camara, [place] [address] [place], [place] [address] (Wo rk) 01/21/2022 Office Visit Gastroenterology Juanis Levi [address] [place] [phone] Luis Fernando Miles MD [address] [facility] [address] [place] [address] documented as of this encounter Visit Diagnoses Diagnosis ERRONEOUS ENCOUNTER--DISREGARD - Primary documented in this encounter Care Teams Urgent Care Nurse Practitioner Relationship Specialty Start Date End Date System, Provider Not In PCP - General Clinic 08/12/14 07/13/16 documented as of this encounter
--- OUTSIDE RECORDS SUMMARY | 2021-11-28 13:51 | XMS_ITS | Encounter Summary ---
:1980 Author Organization [place] Address [facility] [place] [address] Care Team Providers Name Role Phone Clinic, [facility] Primary Care Provide r Reason for Visit Reason Comments Threatened Miscarriage Encounter Details Date Type Department Care Team Description 07/14/2016 Emergency [facility] Santosh Spears, Twin gestation in first trimester, unspecified multiple gestation type; [facility] Emergency Dep t Threatened miscarriage in early pregnanc y [address] [facility] [place] [address] [address] [phone] [facility] [address] [place] [address] (Wo rk) Social History Tobacco Use Types Packs/Day Years Used Date Smoking Tobacco: Every Day Cigarettes 0.1 10 Smokeless Tobacco: Never Comments: 5 cigarettes a day Alcohol Use Standard Drinks/Week Comments No 0 (1 standard drink = 0.6 oz pure alcoho l) Sex Assigned at Date Recorded Female 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 Thanks for visiting [facility] Emergency Room. Santosh Spears MD [...] by 30 tablet 6 12/10/2012 08/30/19 17 Jpnoltlv-Yjs-Gs-FA mouth daily ( VITAMINS) 0.8 MG TABSIndications: [...] smoker, 0.10 PPD. Alcohol Use: Yes PCP: [facility] Review of Systems Constitutional: Positive for fatigue. [...] understanding of the findings. Laboratory: HCG Quantitative: 20460 (H) CBC: WBC 7.9, HGB 12.6, PLT [...] Disp-100 tablet, R-3, Local Print Flo Powers, anamika serving as a scribe on 07/14/2016 at 7:38 AM to personally document services performed by Santosh Spears MD based on my observations and the provider's statements to me. 07/14/2016 [facility] EMERGENCY DEPARTMENT Santosh Spears MD 07/14/16 1206 documented in this encounter Plan of Treatment Upcoming Encounters Date Type Specialty Care Team Description 11/29/2021 Office Visit Wound Care Luis Camara, [place] [address] [place] [address] (Wo rk) 01/21/2022 Office Visit Gastroenterology Juanis Levi [address] [place] [address] Luis Fernando Miles MD [address] [facility] [address] [place] [address] documented as of this encounter [...] a mean sac diameter of 1.4 cm. [place]-rump length is 0.5 cm this cor responds to a gestational age of 6 weeks 2 days. Estimated date of del elmira is 03/07/2017. Yolk sac is identified. Heart rate is 1 26 bpm. Gestational sac B measures mean sac diam eter 0.8 cm. This corresponds to an age of 5 weeks 3 days. [place]-rump length is 0.3 cm corresponding to a [...] a mean sac diameter of 1.4 cm. [place]-rump length is 0.5 cm this cor responds to a gestational age of 6 weeks 2 days. Estimated date of del elmira is 03/07/2017. Yolk sac is identified. Heart rate is 1 26 bpm. Gestational sac B measures mean sac diam eter 0.8 cm. This corresponds to an age of 5 weeks 3 days. [place]-rump length is 0.3 cm corresponding to a [...] Immune Globulin Study (07/14/2016 7:46 AM CDT) [facility] [place] Method Time Signature ABO B [facility] RH(D) Pos [facility] Blood Canceled, [place] Screen Test [facility] Blood Bank Not suitable for Rh Immune Globulin [facility] Comment Patien is Rh Positive [facility] Amount of RHIG Not suitable [facility] Required for Rh [facility] Globulin Specimen Anatomical Collection Method Collection Time Receive d Time (Source) Location / / Volume Laterality 07/14/2016 7:46 AM 7 7:58 CDT AM CDT Santosh Spears MD LAB - BLOOD BANK TEST ORDER Performing Organization Address City/State/ZIP Code Phon e Number [place] [address] [address] [place] [address] [place] [address] [phone] ABO/Rh type and screen (07/14/2016 7:46 AM CDT) [facility] [place] Method Time Signature ABO B [facility] RH(D) Pos [facility] Antibody Neg [place] Screen [facility] Test Valid [facility] Only At [facility] Specimen 07/17/2016 [place] [facility] Spec[facility] Anatomical Collection Method Collection Time Receive d Time (Source) Location / / Volume Laterality Blood specimen 07/14/2016 7:46 AM 017 8:01 (specimen) CDT AM CDT Santosh Spears MD LAB - BLOOD BANK TEST ORDER Performing Organization Address City/[facility]/ZIP [facility] Phon e Number M [facility] [address] [place], [place] [address] [employer] [address] [place], [place] [address], [facility] [phone] Rho (D) immune globulin (RhoGam) Lab Study (07/14/2016 7:36 AM CDT) [facility] Method Time Signature Rhogam Order Order received [place] See Rhogam Study/[facility] Specimen Anatomical Collection Method Collection Time Receive d Time (Source) Location / / Volume Laterality 07/14/2016 7:36 AM 7 7:45 CDT AM CDT Santosh Spears MD LAB - BLOOD BANK PRODUCT ORD ER Performing Organization Address [facility]/ZIP [facility] Phon e Number [facility] [address] [place], [place] [address] [place] [address] [address] [place], [place] [address], [facility] [phone] (ABNORMAL) HCG QUANTitative (07/14/2016 5:28 AM CDT) [facility] Method Time Signature HCG Quantitative 19,512 0 - 5 [place] Serum (H) IU/L [facility] Specimen Anatomical Collection Method Collection Time Receive d Time (Source) Location / / Volume Laterality Blood specimen 07/14/2016 5:28 AM 017 7:59 (specimen) CDT AM CDT Santosh Spears MD LAB - BLOOD ORDERABLES Performing Organization Address City/[facility]/ZIP Code Phon e Number [facility] [address] [place], [place] [address] [employer] [address] [place], [place] [address], [facility] [phone] CBC with platelets differential (07/14/2016 5:28 AM CDT) [facility] Method Time Signature WBC 7.9 4.0 - [place] 11.0 [facility] 10e9/L [facility] RBC Count 4.00 3.8 - 5.2 [place] 10e12/L [facility] Hemoglobin 12.6 11.7 - [place] 15.7 g/dL [facility] Hematocrit 37.4 35.0 - [place] 47.0 % [facility] MCV 94 78 - 100 [place] fl [facility] MCH 31.5 26.5 - [place] 33.0 pg [facility] MCHC 33.7 31.5 - [place] 36.5 g/dL [facility] RDW 13.3 10.0 - [place] 15.0 % [facility] Platelet Count 230 150 - [address] Diff Method Automated [place] Method [facility] % Neutrophils 42.2 % [facility] % Lymphocytes 48.0 % [facility] % Monocytes 6.4 % [facility] % Eosinophils 2.5 % [facility] % Basophils 0.6 % [facility] % Immature 0.3 % [place] Granulocytes [facility] Nucleated RBCs 0 0 /100 [facility] Absolute 3.3 1.6 - 8.3 [place] Neutrophil [facility] Absolute 3.8 0.8 - 5.3 [place] Lymphocytes [address] [place] [address] Absolute 0.5 0.0 - 1.3 [place] Monocytes [address] [place] [address] Absolute 0.2 0.0 - 0.7 [place] Eosinophils [address] [place] [address] Absolute 0.1 0.0 - 0.2 [place] Basophils [address] [place] [address] Abs Immature 0.0 0 - 0.4 [place] Granulocytes [address] [place] [address] Absolute 0.0 [place] Nucleated RBC [facility] Specimen Anatomical Collection Method Collection Time Receive d Time (Source) Location / / Volume Laterality Blood specimen 07/14/2016 5:28 AM 017 7:59 (specimen) CDT AM CDT Santosh Spears MD LAB - BLOOD ORDERABLES Performing Organization Address City/State/ZIP Code Phon e Number [facility] [address] [place], [place] [address] [employer] [address] [phone] documented in this encounter Visit Diagnoses Diagnosis [...] meds documented in this encounter Care Teams Film Painter Relationship Specialty Start Date End Date Clinic, [facility] PCP - General 07/14/16 12/06/[address] [place] [address] documented as of this encounter
--- OUTSIDE RECORDS SUMMARY | 2021-11-28 13:51 | XMS_ITS | Encounter Summary ---
:1980 Author Organization [place] Address [address] [facility] [place] [address] Care Team Providers Name Role Phone System, Provider Not In Primary Care Provider Unavailable Reason for Visit Reason Onset Date Comments Medication Request 02/05/2016 Bridge for Subutex 2 mg Encounter Details Date Type Department Care Team Description 02/05/2016 Telephone [facility] Edgar Alfredo, [facility] ication Request Clinic Ashly VÁSQUEZ (Bridge for Subutex [address] [place] mg ) [address] [place] [address] (Wo rk) Social History Tobacco Use Types Packs/Day Years Used Date Smoking Tobacco: Every Day Cigarettes 0.1 10 Smokeless Tobacco: Never Comments: 5 cigarettes a day Alcohol Use Standard Drinks/Week Comments No 0 (1 standard drink = 0.6 oz pure alcoho l) Sex Assigned at Date Recorded Female 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 Pt can't make her appt for today she has no ride. Pt contact info: [phone] Ok to leave detailed message. Thank you, Mark Roldan Chief Clerk [facility] ET MILL OPERATOR documented in this encounter Plan of Treatment Upcoming Encounters Date Type Specialty Care Team Description 11/29/2021 Office Visit Wound Care Luis Camara, [place] [address] [place], [place] [phone] (Wo rk) 01/21/2022 Office Visit Gastroenterology Juanis Levi [address] [place] [address] Luis Fernando Miles MD 6 [facility] [address] [place], [place] [address] documented as of this encounter Visit Diagnoses Diagnosis Uncomplicated opioid dependence (H) - Pr imary Opioid type dependence, unspecified documented in this encounter Care Teams Learning Analyst Relationship Specialty Start Date End Date System, Provider Not In PCP - General Clinic 08/12/14 07/13/16 documented as of this encounter
--- OUTSIDE RECORDS SUMMARY | 2021-11-28 13:51 | XMS_ITS | Encounter Summary ---
:1980 Author Organization [place] Address [address] [place] [address] Care Team Providers Name Role Phone System, Provider Not In Primary Care Provider Unavailable Reason for Visit Reason Comments Drug Problem Encounter Details Date Type Department Care Team Description 06/17/[address] [facility] Edgar Alfredo Uncomplic ated opioid dependence (H) (Primary Dx); Clinic Ashly Gauthier MD Major depressive disorder, recurrent epi sode, moderate (H) [address] [place] [address] [place] [address] Social History Tobacco Use [...] Take 1 tablet by mouth daily ??? Ogjqsqwg-Cgj-Jn-FA ( VITAMINS) 0.8 MG TABS Take 1 [...] Panel 13 Result Value Ref Range Cannabinoids (61-rfz-4-vmftlho-2-DGP) NDET ng/mL Not Detected Cutoff for a [...] be used for medical purposes only. Order [id number] for confirmation or individual confirmation tests to [facility]. 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 USE OF HIGH RISK MEDICATION High Risk [...] visit in 2 MONTHS Edgar Alfredo MD [facility] PRIMARY [facility]ARE documented in this encounter Plan of Treatment Upcoming Encounters Date Type Specialty Care Team Description 11/29/2021 Office Visit Wound Care Luis Camara DPM [address] [place], [place] [address] (Wo rk) 01/21/2022 Office Visit Gastroenterology Juanis Levi [address] [place] [address] Luis Fernando Miles MD [address] [facility] [address] [place] [address] documented as of this encounter [...] 7 (specimen) AM CDT 11:33 AM CDT Egdar Alfredo MD LAB - URINE ORDERABLES Performing Organization Address City/State/[place] [address] [facility] Building [address] [facility] LAB (ABNORMAL) Urine Drugs of Abuse Screen Panel 13 (06/17/2016 11:29 AM CDT) Component Value Ref Test Analysis Performed Pathologis t Range Method Time At Signature Cannabinoids Not Detected [facility] LAB (98-tkh-4-carboxy- Cutoff for a negative cannabinoid is 50 [...] less ng/mL Buprenorphine Detected, Abnormal Result [facility] LAB (Buprenorphine) Cutoff for a positive buprenorphine is greater than 10 ng/ml. ng/mL This is an unconfirmed screening result to be used for medical purposes only. Order [id number] for confirmation or individual confirmation tests to [facility]. (A) Specimen Anatomical Collection Method Collection Time Receive d Time (Source) Location / / Volume Laterality Urine specimen 06/17/2016 11:29 7 (specimen) AM CDT 11:30 AM CDT Edgar Alfredo MD LAB - URINE ORDERABLES Performing Organization Address City/State/[facility] [place] [address] [facility] [address] LAB documented in this encounter Visit Diagnoses Diagnosis Uncomplicated opioid dependence (H) - Pr imary Opioid type dependence, unspecified Major depressive disorder, recurrent epi sode, moderate (H) Major depressive disorder, recurrent epi sode, moderate documented in this encounter Care Teams Activities Concierge Relationship Specialty Start Date End Date System, Provider Not In PCP - General Clinic 08/12/14 07/13/16 documented as of this encounter
--- OUTSIDE RECORDS SUMMARY | 2021-11-28 13:51 | XMS_ITS | Encounter Summary ---
:1980 Author Organization [place] Address [address] [facility] [place] [address] Care Team Providers Name Role Phone System, Provider Not In Primary Care Provider Unavailable Reason for Visit Reason Onset Date Comments Recheck Medication Erroneous encounter-disregard 10/24/2015 Encounter Details Date Type Department Care Team Description 10/24/2015 Office Visit [facility] Edgar Alfredo NO SHOW ( Primary Dx) Clinic Ashly Gauthier MD [address] [place] [address] [place] [address] Social History Tobacco Use Types Packs/Day Years Used Date Smoking Tobacco: Every Day Cigarettes 0.1 10 Smokeless Tobacco: Never Comments: 5 cigarettes a day Alcohol Use Standard Drinks/Week Comments No 0 (1 standard drink = 0.6 oz pure alcoho l) Sex Assigned at Date Recorded Female 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 Please disregard. documented in this encounter Plan of Treatment Upcoming Encounters Date Type Specialty Care Team Description 11/29/2021 Office Visit Wound Care Luis Camara, DPCamryn [address] [place], [place] [address] (Wo rk) 01/21/2022 Office Visit Gastroenterology Juanis Levi [address] [place] [phone] Luis Fernando Miles MD [address] [facility] [address] [place], [place] [phone] documented as of this encounter Visit Diagnoses Diagnosis NO SHOW - Primary documented in this encounter Care Teams Mammal Control Agent Relationship Specialty Start Date End Date System, Provider Not In PCP - General Clinic 08/12/14 07/13/16 documented as of this encounter
--- OUTSIDE RECORDS SUMMARY | 2021-11-28 13:51 | XMS_ITS | Encounter Summary ---
:1980 Author Organization [place] Address [address] [place] [address] Care Team Providers Name Role Phone Clinic, [facility] Primary Care Provide r Reason for Visit Reason Onset Date Comments Medication Request 07/16/2016 Encounter Details Date Type Department Care Team Description 07/16/2016 Telephone [facility] Edgar Alfredo Ma rk, Medication Request Ashly VÁSQUEZ [address] [place] [address] [place] [phone] (Wo rk) Social History Tobacco Use Types Packs/Day Years Used Date Smoking Tobacco: Every Day Cigarettes 0.1 10 Smokeless Tobacco: Never Comments: 5 cigarettes a day Alcohol Use Standard Drinks/Week Comments No 0 (1 standard drink = 0.6 oz pure alcoho l) Sex Assigned at Date Recorded Female 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 Pharmacy of choice: [facility] - [place], [place] - [address] Phone Number Patient can be reached at: Home number on file [phone] (home) Best Time: Anytime Can we leave a detailed message on this number? YES Call taken on 07/16/2016 at 2:10 PM by Dora Merchant documented in this encounter Plan of Treatment Upcoming Encounters Date Type Specialty Care Team Description 11/29/2021 Office Visit Wound Care Luis Camara DPM [address] [place] [address] (Wo rk) 01/21/2022 Office Visit Gastroenterology Juanis Levi [address] [place] [phone] Luis Fernando Miles MD [address] [facility] [address] [place] [address] documented as of this encounter Visit Diagnoses Not on filedocumented in this encounter Care Teams Induction Machine Operator Relationship Specialty Start Date End Date Clinic, [facility] Medical PCP - General 07/14/16 12/06/[address] [place] [address] documented as of this encounter
--- OUTSIDE RECORDS SUMMARY | 2021-11-28 13:51 | XMS_ITS | Encounter Summary ---
:1980 Author Organization [place] Address [address] [facility] 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 [employer] [place] documented as of this encounter Miscellaneous Notes [...] Visit Wound Care Luis Camara DPM [address] [place] [address] (Wo rk) 01/21/2022 Office Visit Gastroenterology Juanis Levi [address] [place] [address] Luis Fernando Miles MD 6 [facility] [address] [place] [address] documented as of this encounter Visit Diagnoses Not on filedocumented in this encounter Care Teams Any Commodity Buyer Relationship Specialty Start Date End Date Clinic, [facility] PCP - General 07/14/16 12/06/[address] [place] [address] documented as of this encounter
--- OUTSIDE RECORDS SUMMARY | 2021-11-28 13:51 | XMS_ITS | Encounter Summary ---
:1980 Author Organization [place] Address [address] [place] [address] Care Team Providers Name Role Phone System, Provider Not In Primary Care Provider Unavailable Reason for Visit Reason Comments Recheck Medication Encounter Details Date Type Department Care Team Description 04/09/[address] 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 documented as of this encounter Last Filed Vital Signs Vital Sign Reading Time Taken Comments Blood Pressure 133/87 04/09/2016 10:36 AM GOLF CLUB HEAD FORMER Pulse 87 04/09/2016 10:35 AM GOLF CLUB HEAD FORMER Temperature 36.8 ??C (98.2 ??F) 04/09/2016 10:35 AM GOLF [employer]UB HEAD FORMER Respiratory Rate 20 04/09/2016 10:35 AM GOLF [employer]UB HEAD FORMER Oxygen Saturation 94% 04/09/2016 10:35 AM GOLF [employer]UB HEAD FORMER Inhaled Oxygen Concentration - - Weight 83 kg (183 lb) 04/09/2016 10:35 AM GOLF CLUB HEAD FORMER Height - - Body Mass Index 29.99 01/07/2013 11:29 AM GOLF CLUB HEAD FORMER documented in this encounter Progress Notes Edgar [...] been going to recovery meetings:not at all. [place] Board [employer] Pharmacy Data Base Reviewed: YES; [...] Take 1 tablet by mouth daily ??? Zzbqninn-Zlb-Tm-FA ( VITAMINS) 0.8 MG TABS Take 1 [...] less. 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 FOR REMITTANCE CLERK USE OF HIGH RISK MEDICATION High Risk [...] visit in 2 MONTHS Edgar Alfredo MD [facility] CLUB HEAD FORMER documented in this encounter Nursing Notes Sabina [...] not appropriate to perform Sabina Mckay CMA CLUB HEAD FORMER documented in this encounter Plan of Treatment Upcoming Encounters Date Type Specialty Care Team Description 11/29/2021 Office Visit Wound Care Luis Camara DPM [address] [place] [address] (Wo rk) 01/21/2022 Office Visit Gastroenterology Juanis Levi [address] [place] [address] Luis Fernando Miles MD [address] [facility] [address] [place], [place] [id number] documented as of this encounter Procedures Procedure Name Priority Date/Time Associated Diagnosis Comme nts HEPATIC FUNCTION Routine 04/09/2016 10:50 Uncomplicated opioid Results for this PANEL AM [employer]F [employer] FORMER dependence (H) procedure are in the results section. BUPRENORPHINE QUAL Routine 04/09/2016 10:32 Resul ts for this URINE AM [employer] FORMER procedure are i n the results section. DRUG ABUSE SCREEN Routine 04/09/2016 10:32 Uncomplicated opioi d Results for this (NL, RW) AM [employer]OL[employer] FORMER dependence (H) procedure are in the results section. documented in this encounter Results Hepatic panel (04/09/2016 10:50 AM GOLF [employer]UB HEAD FORMER) Analysis Performed At [facility] Time Signature Bilirubin Direct 0.1 0.0 - 0.2 [facility] mg/dL [facility] [place] Bilirubin Total 0.4 0.2 - 1.3 [facility] mg/dL [facility] [place] Albumin 3.4 3.4 - 5.0 [facility] g/dL [facility] [place] Protein Total 7.2 6.8 - 8.8 [facility] g/dL [facility] [place] Alkaline 76 40 - 150 [facility] Phosphatase U/L [facility] [place] ALT 36 0 - 50 U/L [facility][1] AST 22 0 - 45 U/L [facility][1] Specimen Anatomical Collection Method Collection Time Receive d Time (Source) Location / / Volume Laterality Blood specimen 04/09/2016 10:50 7 (specimen) AM [employer] FORMER 10:51 AM GOL[employer] HEAD FORMER Edgar Alfredo MD LAB - BLOOD ORDERABLES Performing Organization Address City/State/ZIP Code Phon e Number [facility][1] [address] [place] [address] Drug abuse screen (NL, RW) (04/09/2016 10:32 AM GOLF CLUB HEAD FORMER) Component Value Ref Test Analysis Performed Pathologis [...] Urine specimen 04/09/2016 10:32 7 (specimen) AM [employer] FORMER 10:33 AM GOLF [employer] HEAD FORMER Edgar Alfredo MD LAB - URINE ORDERABLES Performing Organization Address [facility] Phon e Number [address] [facility] Buprenorphine Qual Urine (04/09/2016 10:32 AM GOLF CLUB HEAD FORMER) [facility] gist Method Time Signature Buprenorphine Positive [facility] Qual Urine Specimen Anatomical Collection Method Collection Time Receive d Time (Source) Location / / Volume Laterality Urine specimen 04/09/2016 10:32 7 (specimen) AM [employer] HEAD FORMER 10:33 AM GOLF [employer] HEAD FORMER Edgar Alfredo MD LAB - URINE ORDERABLES Performing Organization Address [facility] Phon e Number [place], [place] [id number] [place] [address] [address] [facility] documented in this encounter Visit Diagnoses Diagnosis Uncomplicated opioid dependence (H) Opioid type dependence, unspecified Major depressive disorder, recurrent epi sode, moderate (H) Major depressive disorder, recurrent epi sode, moderate documented in this encounter Care Teams Clothespin Drier Operator Relationship Specialty Start Date End Date System, Provider Not In PCP - General Clinic 08/12/14 07/13/16 documented as of this encounter
--- OUTSIDE RECORDS SUMMARY | 2021-11-28 13:51 | XMS_ITS | Encounter Summary ---
:1980 Author Organization [place] Address [address] [facility] [place] [address] Care Team Providers Name Role Phone System, Provider Not In Primary Care Provider Unavailable Reason for Visit Reason Onset Date Comments Recheck Medication Erroneous encounter-disregard 01/08/2016 Encounter Details Date Type Department Care Team Description 01/01/[address] 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 Please disregard. CAR REPAIRMAN documented in this encounter Plan of Treatment Upcoming Encounters Date Type Specialty Care Team Description 11/29/2021 Office Visit Wound Luis Ramirez, [place] [address] [facility] [address] [place], [place] [address] (Wo rk) 01/21/2022 Office Visit Gastroenterology Juanis Levi [address] [place] [phone] Luis Fernando Miles MD 516 [facility] [address] [place], [place] [phone] documented as of this encounter Visit Diagnoses Diagnosis ERRONEOUS ENCOUNTER--DISREGARD - Primary documented in this encounter Care Teams Crap Shooter Relationship Specialty Start Date End Date System, Provider Not In PCP - General Clinic 08/12/14 07/13/16 documented as of this encounter
--- OUTSIDE RECORDS SUMMARY | 2021-11-28 13:51 | XMS_ITS | Encounter Summary ---
:1980 Author Organization [place] Address [address] [facility] [place] [address] Care Team Providers Name Role Phone System, Provider Not In Primary Care Provider Unavailable Reason for Visit Reason Comments Recheck Medication Encounter Details Date Type Department Care Team Description 01/08/2016 Office Visit [facility] Edgar Alfredo Uncomplic ated opioid Clinic Ashly Gauthier MD dependence (H) (Primary [address] Dx) [address] [place] [address] Social History Tobacco Use Types Packs/Day Years Used Date Smoking Tobacco: Every Day Cigarettes 0.1 10 Smokeless Tobacco: Never Comments: 5 cigarettes a day Alcohol Use Standard Drinks/Week Comments No 0 (1 standard drink = 0.6 oz pure alcoho l) Sex Assigned at Date Recorded Female 01/14/2020 10:57 AM PET GROOMER documented as of this encounter Last Filed Vital Signs Vital Sign Reading Time Taken Comments Blood Pressure 126/99 01/08/2016 10:27 AM PET GROOMER Pulse 112 01/08/2016 10:27 AM PET GROOMER Temperature 36.7 ??C (98 ??F) 01/08/2016 10:27 AM PET GROOMER Respiratory Rate 10 01/08/2016 10:27 AM PET GROOMER Oxygen Saturation 99% 01/08/2016 10:27 AM PET GROOMER Inhaled Oxygen Concentration - - Weight 79.8 kg (176 lb) 01/08/2016 10:27 AM PET GROOMER Height - - Body Mass Index 28.84 01/07/2013 11:29 AM PET GROOMER documented in this encounter Progress Notes Edgar [...] DOESN'T CONNECT WITH USERS ANYMORE GOES TO [facility], BIB STUDY DISCUSSED DOSE - NOT READY TO [...] program has been: ignored. BUT GOES TO [facility] Accompanying Signs & Symptoms: ?? Side Effects: [...] Take 1 tablet by mouth daily ??? Oskwbdhb-Ppo-Bj-FA ( VITAMINS) 0.8 MG TABS Take 1 [...] Positive 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 FOR SHELTER USE OF HIGH RISK MEDICATION High Risk [...] I DON'T DO DRUGS Edgar Alfredo MD [facility] PRIMARY CARE GROOMER documented in this encounter Plan of Treatment Upcoming Encounters Date Type Specialty Care Team Description 11/29/2021 Office Visit Wound Care Luis Camara, [place] [address] [place] [address] (Wo rk) 01/21/2022 Office Visit Gastroenterology Juanis Levi [address] [place] [address] Luis Fernando Miles MD [address] [facility] [address] [place] [address] documented as of this encounter Procedures Procedure Name Priority Date/Time Associated Comments Diagnosis BUPRENORPHINE QUAL Routine 01/08/2016 10:24 Resul ts for this URINE AM PET GROOMER procedure are i n the results section. DRUG ABUSE SCREEN (NL, Routine 01/08/2016 10:24 R esults for this RW) AM PET GROOMER procedure are i n the results section. documented in this encounter Results Buprenorphine Qual Urine (01/08/2016 10:24 AM PET GROOMER) Patholo gist Method Time Signature Buprenorphine Positive [facility] LAB Qual Urine Specimen Anatomical Collection Method Collection Time Receive d Time (Source) Location / / Volume Laterality Urine specimen 01/08/2016 10:24 6 (specimen) AM PET GROOMER 10:25 AM PET GROOMER Edgar Alfredo MD LAB - URINE ORDERABLES Performing Organization Address City/State/[place] [address] [facility] [address] [place] [address] [address] [facility] LAB (ABNORMAL) Drug abuse screen (NL, RW) (01/08/2016 10:24 AM PET GROOMER) Component Value Ref Test Analysis Performed Pathologis [...] Urine specimen 01/08/2016 10:24 6 (specimen) AM PET GROOMER 10:25 AM PET GROOMER Edgar Alfredo MD LAB - URINE ORDERABLES Performing Organization Address City/State/[place] [address] [facility] Building [address] [address] [facility] documented in this encounter Visit Diagnoses Diagnosis Uncomplicated opioid dependence (H) - Pr imary Opioid type dependence, unspecified documented in this encounter Care Teams Wash Helper Relationship Specialty Start Date End Date System, Provider Not In PCP - General Clinic 08/12/14 07/13/16 documented as of this encounter
--- OUTSIDE RECORDS SUMMARY | 2021-11-28 13:51 | XMS_ITS | Encounter Summary ---
:1980 Author Organization [place] Address [address] [facility] [place] [address] Care Team Providers Name Role Phone System, Provider Not In Primary Care Provider Unavailable Reason for Visit Reason Onset Date Comments Medication Request 06/19/2016 Suboxone Encounter Details Date Type Department Care Team Description 06/19/2016 Telephone [facility] Edgar Alfredo, [facility] ication Request Clinic Ashly VÁSQUEZ (Suboxone ) [address] [place] [address] [place] [phone] (Wo rk) Social History Tobacco Use Types Packs/Day Years Used Date Smoking Tobacco: Every Day Cigarettes 0.1 10 Smokeless Tobacco: Never Comments: 5 cigarettes a day Alcohol Use Standard Drinks/Week Comments No 0 (1 standard drink = 0.6 oz pure alcoho l) Sex Assigned at Date Recorded Female 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 Pt would like script sent to: [place], [place] - [address] [place] [address] Dora Merchant Senior Network Administrator documented in this encounter Plan of Treatment Upcoming Encounters Date Type Specialty Care Team Description 11/29/2021 Office Visit Wound Care Luis Camara, [place] [address] [place] [address] (Wo rk) 01/21/2022 Office Visit Gastroenterology Juanis Levi [address] [place] [address] Luis Fernando Miles MD [address] [facility] [address] [place] [address] documented as of this encounter Visit Diagnoses Diagnosis Uncomplicated opioid dependence (H) - Pr imary Opioid type dependence, unspecified documented in this encounter Care Teams Ship Pilot Dispatcher Relationship Specialty Start Date End Date System, Provider Not In PCP - General Clinic 08/12/14 07/13/16 documented as of this encounter
--- OUTSIDE RECORDS SUMMARY | 2021-11-28 13:51 | XMS_ITS | Encounter Summary ---
:1980 Author Organization [place] Address [address] [facility] [place] [address] Care Team Providers Name Role Phone System, Provider Not In Primary Care Provider Unavailable Reason for Visit Reason Comments Recheck Medication Encounter Details Date Type Department Care Team Description 12/04/2015 Office Visit [facility] Edgar Alfredo Uncomplic ated opioid Clinic Ashly Gauthier MD dependence (H) (Primary [address] Dx) [address] [place] [address] Social History Tobacco Use Types Packs/Day Years Used Date Smoking Tobacco: Every Day Cigarettes 0.1 10 Smokeless Tobacco: Never Comments: 5 cigarettes a day Alcohol Use Standard Drinks/Week Comments No 0 (1 standard drink = 0.6 oz pure alcoho l) Sex Assigned at Date Recorded Female 01/14/2020 10:57 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 [place] Board of Pharmacy Data Base Reviewed: NO; [...] Take 1 tablet by mouth daily ??? Yqytffba-Lts-Yi-FA ( VITAMINS) 0.8 MG TABS Take 1 tablet by mouth daily 30 tablet 6 ??? [DISCONTINUED] VITAMINS PO Take by mouth. No Known Allergies Labs reviewed in [facility] OBJECTIVE: BP 137/81 mmHg Pulse 76 [...] visit in 1 MONTH Edgar Alfredo MD [facility] documented in this encounter [...] Visit Wound Care Luis Camara DPM [address] [place] [address] (Wo rk) 01/21/2022 Office Visit Gastroenterology Juanis Levi [address] [place] [address] Luis Fernando Miles MD 516 [facility] [address] [place], [place] [phone] documented as of this encounter Procedures Procedure [...] Patholo gist Method Time Signature Buprenorphine Positive [place] Qual Urine [facility] Specimen Anatomical Collection Method Collection Time Receive d Time (Source) Location / / Volume Laterality Urine specimen 12/04/2015 11:28 6 (specimen) AM CDT 11:29 AM CDT Edgar Alfredo MD LAB - URINE ORDERABLES Performing Organization Address City/State/ZIP Code Phon e Number [address] [address] Drug abuse screen (NL, RW) (12/04/2015 11:28 AM CDT) Component Value Ref Test Analysis Performed Pathologis t Range Method Time At Signature Methamphetamine Negative [facility] Qual Urine Cutoff for a negative methamphetamine is 1000 ng/mL or le ss. [facility] Cocaine Qual Urine Negative [facility] Cutoff for a negative cocaine is 300 ng/mL or less. [facility] Cannabinoids Qual Negative [facility] Urine Cutoff for a negative cannabinoid is 50 ng/mL or less. [facility] MDMA Qual Urine Negative [facility] Cutoff for a negative MDMA (ecstasy) is 500 ng/mL or less. [facility] Methadone Qual Negative [facility] Urine Cutoff for a negative methadone is 300 ng/mL or less. [facility] Opiates Negative [facility] Qualitative Urine Cutoff for a negative opiate is 300 ng/mL or less. [facility] Benzodiazepine Negative [facility] Qual Urine Cutoff for a negative benzodiazepine is 300 ng/mL or less . [facility] Tricyc Anti Qual Negative [facility] Urine Cutoff for a negative tricyclic antidepressant is 1000 ng /mL or less. [facility] Barbiturates Qual Negative [facility] Urine Cutoff for a negative barbituate is 300 ng/mL or less. [facility] PCP Qual Urine Negative [facility] [place] Cutoff for a negative PCP is 25 ng/mL or less. [facility] Amphetamine Qual Negative [facility] [place] Urine Cutoff for a negative amphetamine is 1000 ng/mL or less. [facility] Oxycodone Qual Negative [facility] [place] Urine Cutoff for a negative Oxycodone is 100 ng/mL or less. [facility] Specimen Anatomical Collection Method Collection Time Receive d Time (Source) Location / / Volume Laterality Urine specimen 12/04/2015 11:28 6 (specimen) AM CDT 11:29 AM CDT Edgar Alfredo MD LAB - URINE ORDERABLES Performing Organization Address City/State/ZIP Code Phon e Number [facility] [address] [place] [address] documented in this encounter Visit Diagnoses Diagnosis Uncomplicated opioid dependence (H) - Pr imary Opioid type dependence, unspecified documented in this encounter Care Teams Supervisor Production Department Relationship Specialty Start Date End Date System, Provider Not In PCP - General Clinic 08/12/14 07/13/16 documented as of this encounter
--- OUTSIDE RECORDS SUMMARY | 2021-11-28 13:51 | XMS_ITS | Encounter Summary ---
:1980 Author Organization [place] Address [address] [facility] [place] [address] Care Team Providers Name Role Phone System, Provider Not In Primary Care Provider Unavailable Reason for Visit Reason Onset Date Comments Prior Auth - Medication 06/13/2016 buprenorphine (S UBUTEX) 2 MG Encounter Details Date Type Department Care Team Description 06/13/2016 Telephone [facility] Edgar Alfredo Pri or Auth - Medication Clinic Ashly VÁSQUEZ (buprenorphine [address] [place] (SUBUTEX) 2 MG) [address] [place] [phone] (Wo rk) Social History Tobacco Use Types Packs/Day Years Used Date Smoking Tobacco: Every Day Cigarettes 0.1 10 Smokeless Tobacco: Never Comments: 5 cigarettes a day Alcohol Use Standard Drinks/Week Comments No 0 (1 standard drink = 0.6 oz pure alcoho l) Sex Assigned at Date Recorded Female 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 Lupe Lantigua MA Telephone Encounter - Lupe Lantigua CMA - 06/14/2016 9:48 AM CDT changed Subutex Rx to Suboxone instead. Staff called [facility] at [phone] and was informed an Prior Authorization is needed for buprenorphine HCl-naloxone HCl (SUBOXONE) 2-0.5 MG per film 25 Film. Staff called [employer] to Submit PA via phone for buprenorphine HCl- naloxone HCl (SUBOXONE) 2-0.5 MG per film 25 Film. Staff is waiting for a response. [place] Medicaid ID# [id number] NDC# [id number] Pharm NPI# [id number] Pharm Pharm Insurance Phone# Telephone Encounter - Mark Roldan - 06/13/2016 3:41 PM CDT Patient called she would like a call back on the Status of the PA. Pt contact info: [phone] Ok to leave derailed message. Mark Roldan Worker'S Compensation Claims Examiner Telephone Encounter - Dora Merchant - 06/13/2016 2:56 PM CDT Fax received from [facility] requesting that PA be re-submitted with pharmacy name, NPI, phone number and fax number. Another form received from pharmacy requesting that PA be submitted via covermymeds. Beatty: [id number] Inspector Missile placed forms in provider's folder Dora Merchant Worker'S Compensation Claims Examiner Telephone Encounter - Sarah Calvert MA - 06/13/2016 1:54 PM CDT Per Insurance PA denied the authorization criteria were not met, documents verifying clear intolerance to naloxonemust be provided for mcfp therapy. Routing to provider to review and Advise Sarah Calvert MA June 13, 2016 Telephone Encounter - Mark Roldan - 06/13/2016 12:09 PM CDT PA denied the authorization criteria were not met, documents verifying clear intolerance to naloxonemust be provided for mcfp therapy. Inspector Missile placed form in provider's folder. Mark Roldan Worker'S Compensation Claims Examiner Telephone Encounter - Dora Merchant - 06/13/2016 10:32 AM CDT Fax received from pharmacy 06/13/16 requesting an urgent PA. Pt has been out of medication for a while. Insurance phone #: [phone] Dora Merchant Worker'S Compensation Claims Examiner Telephone Encounter - Dora Merchant - 06/13/2016 8:23 AM CDT Incoming call from pt requesting a PA for buprenorphine (SUBUTEX) 2 MG. TC's have not received a PA request from the pharmacy. Prior Authorization needed on: 06/13/16 Medication: buprenorphine (SUBUTEX) Dose: 2 MG Insurance Name: [place] Medicaid Insurance Phone: not available Insurance Dora Merchant June 13, 2016 at 8:24 AM documented in this encounter Plan of Treatment Upcoming Encounters Date Type Specialty Care Team Description 11/29/2021 Office Visit Wound Care Luis Camara DPM [address] [place], [place] [address] (Wo rk) 01/21/2022 Office Visit Gastroenterology Juanis Levi [address] [place] [address] Luis Fernando Miles MD [address] [place] [address] documented as of this encounter Visit Diagnoses Not on filedocumented in this encounter Care Teams Corporate Planner Relationship Specialty Start Date End Date System, Provider Not In PCP - General Clinic 08/12/14 07/13/16 documented as of this encounter
--- OUTSIDE RECORDS SUMMARY | 2021-11-28 13:51 | XMS_ITS | Encounter Summary ---
:1980 Author Organization [place] Address [address] [facility] [address] Care Team Providers Name Role Phone System, Provider Not In Primary Care Provider Unavailable Reason for Visit Reason Onset Date Comments Medication Request 10/25/2015 Encounter Details Date Type Department Care Team Description 10/25/2015 Telephone [facility] Edgar Alfredo Ma, Medication Request [facility] [address] [place] [address] [place] [phone] (Reinaldo rk) Social History Tobacco Use Types Packs/Day Years Used Date Smoking Tobacco: Every Day Cigarettes 0.1 10 Smokeless Tobacco: Never Comments: 5 cigarettes a day Alcohol Use Standard Drinks/Week Comments No 0 (1 standard drink = 0.6 oz pure alcoho l) Sex Assigned at Date Recorded Female 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/2020 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 documented as of this encounter Miscellaneous Notes Addendum Note - Suyapa Murray CMA - 10/26/2015 11:09 AM CDT Addended by: SUYAPA MURRAY on: 10/26/2015 11:09 AM Modules accepted: Medications Telephone Encounter - Suyapa Murray CMA - 10/26/2015 11:09 AM CDT Rx called to [facility] Telephone Encounter - Edgar Alfredo MD [...] Visit Wound Care Luis Camara DPM [address] [place], [place] [address] (Wo rk) 01/21/2022 Office Visit Gastroenterology Juanis Levi [address] [place] [phone] Luis Fernando Miles MD 516 [facility] [address] [place] [address] documented as of this encounter Visit Diagnoses Diagnosis Uncomplicated opioid dependence (H) - Pr imary Opioid type dependence, unspecified documented in this encounter Care Teams Rn Ed Relationship Specialty Start Date End Date System, Provider Not In PCP - General Clinic 08/12/14 07/13/16 documented as of this encounter
--- OUTSIDE RECORDS SUMMARY | 2021-11-28 13:51 | XMS_ITS | Encounter Summary ---
:1980 Author Organization [place] Address [address] [facility] [place] [address] Care Team Providers Name Role Phone System, Provider Not In Primary Care Provider Unavailable Encounter Details Date Type Department Care Team Description 06/13/2016 Telephone [facility] Nithya Alfredo MD [place] [address] [place] [address] [place], [place] [address] [phone] [place] [phone] Social History Tobacco Use Types Packs/Day Years Used Date Smoking Tobacco: Every Day Cigarettes 0.1 10 Smokeless Tobacco: Never Comments: 5 cigarettes a day Alcohol Use Standard Drinks/Week Comments No 0 (1 standard drink = 0.6 oz pure alcoho l) Sex Assigned at Date Recorded Female 01/14/2020 10:57 AM PRODUCTION TRAINER documented as of this encounter Miscellaneous Notes Telephone Encounter - Edgar Alfredo MD - 06/13/2016 1:57 PM CDT Subutex denied Suboxone film ordered Appointment 06/17/16 documented in this encounter Plan of Treatment Upcoming Encounters Date Type Specialty Care Team Description 11/29/2021 Office Visit Wound Care Luis Camara DPM [address] [place] [address] (Wo rk) 01/21/2022 Office Visit Gastroenterology Juanis Levi [address] [place] [address] Luis Fernando Miles MD 516 [facility] [address] [place] [address] documented as of this encounter Visit Diagnoses Not on filedocumented in this encounter Care Teams Carriage Setter Relationship Specialty Start Date End Date System, Provider Not In PCP - General Clinic 08/12/14 07/13/16 documented as of this encounter
--- OUTSIDE RECORDS SUMMARY | 2021-11-28 13:51 | XMS_ITS | Encounter Summary ---
:1980 Author Organization [place] Address [address] [facility] [place] [address] Care Team Providers Name Role Phone System, Provider Not In Primary Care Provider Unavailable Reason for Visit Reason Comments Recheck Medication Encounter Details Date Type Department Care Team Description 02/13/[address] [facility] Edgar Alfredo Uncomplic ated opioid Clinic Ashly Gauthier MD dependence (H) (Primary [address]) [address] [address] [place] [phone] Social History Tobacco Use Types Packs/Day Years Used Date Smoking Tobacco: Every Day Cigarettes 0.1 10 Smokeless Tobacco: Never Comments: 5 cigarettes a day Alcohol Use Standard Drinks/Week Comments No 0 (1 standard drink = 0.6 oz pure alcoho l) Sex Assigned at Date Recorded Female 01/14/2020 10:57 AM AIR SURVEILLANCE OPERATOR documented as of this encounter Last Filed Vital Signs Vital Sign Reading Time Taken Comments Blood Pressure 145/97 02/13/2016 10:59 AM AIR SURVEILLANCE OPERATOR Pulse 113 02/13/2016 10:59 AM AIR SURVEILLANCE OPERATOR Temperature 36.6 ??C (97.9 ??F) 02/13/2016 10:59 AM AIR SURVEILLANCE OPERATOR Respiratory Rate 10 02/13/2016 10:59 AM AIR SURVEILLANCE OPERATOR Oxygen Saturation 98% 02/13/2016 10:59 AM AIR SURVEILLANCE OPERATOR Inhaled Oxygen Concentration - - Weight 79.4 kg (175 lb) 02/13/2016 10:59 AM AIR SURVEILLANCE OPERATOR Height - - Body Mass Index 28.68 01/07/2013 11:29 AM AIR SURVEILLANCE OPERATOR documented in this encounter Progress Notes Edgar Alfredo MD - 02/14/2016 12:50 PM CST SUBJECTIVE: Stephani King is a 35 year old female who presents to clinic today for the following health issues: OPIOID USE DISORDER - SUBOXONE FOLLOW UP: CURRENT DOSE: 10 MG DAILY NO CHANGE NOT WANTING TO DECREASE SUBOXONE IKSHA HAD A GOOD SAHIL WITH KIDS THINKS [...] Take 1 tablet by mouth daily ??? Oltghwsn-Lza-Zb-FA ( VITAMINS) 0.8 MG TABS Take 1 [...] less. 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 FOR COMMUNITY PHARMACIST USE OF HIGH RISK MEDICATION High Risk [...] visit in 2 MONTHS Edgar Alfredo MD [facility] PRIMARY [facility] SURVEILLANCE OPERATOR documented in this encounter Plan of Treatment Upcoming Encounters Date Type Specialty Care Team Description 11/29/2021 Office Visit Wound Care Luis Camara DPM [address] [place] [address] (Wo rk) 01/21/2022 Office Visit Gastroenterology Juanis Levi [address] [place] [address] Luis Fernando Miles MD [address] [address] documented as of this encounter Procedures Procedure Name Priority Date/Time Associated Diagnosis Comme nts BUPRENORPHINE QUAL Routine 02/13/2016 10:58 Uncomplicated opio id Results for this URINE AM AIR SURVEILLANCE OPERATOR dependence (H) procedure are in the results section. DRUG ABUSE SCREEN Routine 02/13/2016 10:58 Uncomplicated opioi d Results for this (NL, RW) AM AIR SURVEILLANCE OPERATOR dependence (H) procedure are in the results section. documented in this encounter Results Drug abuse screen (NL, RW) (02/13/2016 10:58 AM AIR SURVEILLANCE OPERATOR) Component Value Ref Test Analysis Performed [...] Urine specimen 02/13/2016 10:58 6 (specimen) AM AIR SURVEILLANCE OPERATOR 10:59 AM AIR SURVEILLANCE OPERATOR Edgar Alfredo MD LAB - URINE ORDERABLES Performing Organization Address City/State/[place] [address] [facility] Building [address] [facility] Buprenorphine Qual Urine (02/13/2016 10:58 AM AIR SURVEILLANCE OPERATOR) [facility] gist Method Time Signature Buprenorphine Positive [facility] Qual Urine Specimen Anatomical Collection Method Collection Time Receive d Time (Source) Location / / Volume Laterality Urine specimen 02/13/2016 10:58 6 (specimen) AM AIR SURVEILLANCE OPERATOR 10:59 AM AIR SURVEILLANCE OPERATOR Edgar Alfredo MD LAB - URINE ORDERABLES Performing Organization Address City/[facility] [place] [address] [facility] [address] [facility] documented in this encounter Visit Diagnoses Diagnosis Uncomplicated opioid dependence (H) - Pr imary Opioid type dependence, unspecified documented in this encounter Care Teams Scutcher Tender Relationship Specialty Start Date End Date System, Provider Not In PCP - General Clinic 08/12/14 07/13/16 documented as of this encounter
--- OUTSIDE RECORDS SUMMARY | 2021-11-28 13:51 | XMS_ITS | Encounter Summary ---
:1980 Author Organization [place] Address [address] [facility] [place] [address] Care Team Providers Name Role Phone System, Provider Not In Primary Care Provider Unavailable Reason for Visit Reason Onset Date Comments Medication Request 03/12/2016 Bridge for Subutex Encounter Details Date Type Department Care Team Description 03/12/2016 Telephone [facility] Edgar Alfredo, [facility] ication Request Clinic Ashly VÁSQUEZ (Bridge for Subutex ) [address] [place] [address] [place] [phone] (Wo rk) Social History Tobacco Use Types Packs/Day Years Used Date Smoking Tobacco: Every Day Cigarettes 0.1 10 Smokeless Tobacco: Never Comments: 5 cigarettes a day Alcohol Use Standard Drinks/Week Comments No 0 (1 standard drink = 0.6 oz pure alcoho l) Sex Assigned at Date Recorded Female 01/14/2020 10:57 AM CARGO VESSEL STEWARDESS documented as of this encounter Miscellaneous Notes Telephone Encounter - Edgar Alfredo MD - 03/12/2016 12:50 PM CST Bridge ordered O VESSEL STEWARDESS Telephone Encounter - Mark Roldan - 03/12/2016 10:13 AM CST Reason for Call: Bridge for Subutex Detailed comments: pt is requesting a bridge until her next appt on 04/09/16 Phone Number Patient can be reached at: Home number on file [phone] (home) Best Time: anytime Can we leave a detailed message on this number? YES Call taken on 03/12/2016 at 10:13 AM by Mark Roldan Thank you, Mark Roldan Masonry Installer [facility] O VESSEL STEWARDESS documented in this encounter Plan of Treatment Upcoming Encounters Date Type Specialty Care Team Description 11/29/2021 Office Visit Wound Care Luis Camara DPM [address] [place], [place] [phone] (Wo rk) 01/21/2022 Office Visit Gastroenterology Juanis Levi [address] [place] [address] Luis Fernando Miles MD 6 [facility] [address] [place], [place] [address] documented as of this encounter Visit Diagnoses Diagnosis Uncomplicated opioid dependence (H) - Pr imary Opioid type dependence, unspecified documented in this encounter Care Teams Spacecraft Systems Engineer Relationship Specialty Start Date End Date System, Provider Not In PCP - General Clinic 08/12/14 07/13/16 documented as of this encounter
--- OUTSIDE RECORDS SUMMARY | 2021-11-28 13:51 | XMS_ITS | Encounter Summary ---
:1980 Author Organization [place] Address [address] [facility] [address] Care Team Providers Name Role Phone System, Provider Not In Primary Care Provider Unavailable Reason for Visit Reason Comments Recheck Medication Encounter Details Date Type Department Care Team Description 09/28/2015 Office Visit [facility] Edgar Alfredoplic ated opioid dependence (H) (Primary Dx); Clinic Ashly Gauthier MD Major depressive disorder, recurrent epi sode, moderate (H) [address] [place] [phone] Social History Tobacco Use Types Packs/Day Years Used Date Smoking Tobacco: Every Day Cigarettes 0.1 10 Smokeless Tobacco: Never Comments: 5 cigarettes a day Alcohol Use Standard Drinks/Week Comments No 0 (1 standard drink = 0.6 oz pure alcoho l) Sex Assigned at Date Recorded Female 01/14/2020 10:57 AM BAKER SECOND documented as of this encounter Last Filed [...] THE SAME NO RECOVERY PROGRAM OTHER THAN ORIENTAL ORTHODOX SUPPORT Status since last visit: Since last [...] Take 1 tablet by mouth daily ??? Mwupbtue-Klt-Db-FA ( VITAMINS) 0.8 MG TABS Take 1 tablet by mouth daily 30 tablet 6 ??? [DISCONTINUED] VITAMINS PO Take by mouth. No Known Allergies Problem list, Medication list, Allergies, and Medical/Social/Surgical histories reviewed in [facility] andupdated as appropriate. ROS: OBJECTIVE: BP [...] in [address] [facility] documented in this encounter [...] Wound Care Luis Camara DPM [address] [place] [address] (Wo rk) 01/21/2022 Office Visit Gastroenterology Juanis Levi [address] [place] [address] Luis Fernando Miles MD 516 [facility] [address] [address] documented as of this encounter Procedures Procedure [...] Organization Address City/State/[place] [address] [facility] Building [address] [facility] [address] [facility] Drug abuse [...] Organization Address City/State/[place] [address] [facility] Building [address] [facility] documented in this encounter Visit Diagnoses Diagnosis Uncomplicated opioid dependence (H) - Pr imary Opioid type dependence, unspecified Major depressive disorder, recurrent epi sode, moderate (H) Major depressive disorder, recurrent epi sode, moderate documented in this encounter Care Teams Information Clerk [employer]obile [employer] Relationship Specialty Start Date End Date System, Provider Not In PCP - General Clinic 08/12/14 07/13/16 documented as of this encounter
--- OUTSIDE RECORDS SUMMARY | 2021-11-28 13:51 | XMS_ITS | Encounter Summary ---
:1980 Author Organization [place] Address [address] [facility] [place] [address] Care Team Providers Name Role Phone System, Provider Not In Primary Care Provider Unavailable Reason for Visit Reason Onset Date Comments Patient Request 11/22/2015 [facility] appt Encounter Details Date Type Department Care Team Description 11/22/2015 Telephone [facility] Edgar Alfredo Pat ient Request ([facility] appt ) [address] [place] [address] [place] [phone] (Wo rk) Social History Tobacco Use Types Packs/Day Years Used Date Smoking Tobacco: Every Day Cigarettes 0.1 10 Smokeless Tobacco: Never Comments: 5 cigarettes a day Alcohol Use Standard Drinks/Week Comments No 0 (1 standard drink = 0.6 oz pure alcoho l) Sex Assigned at Date Recorded Female 01/14/2020 10:57 AM 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 Pt refused to disclose to internal communications writer why she'd like to be seen sooner. Please follow up. Contact info: [phone] (Ok to leave detailed message, per pt) Thank you, Dora Merchant Software Development Manager [facility] documented in this encounter Plan of Treatment Upcoming Encounters Date Type Specialty Care Team Description 11/29/2021 Office Visit Wound Care Luis Camara, [place] [address] [place], [place] [address] (Wo rk) 01/21/2022 Office Visit Gastroenterology Juanis Levi [address] [place] [phone] Luis Fernando Miles MD [address] [address] documented as of this encounter Visit Diagnoses Not on filedocumented in this encounter Care Teams Administrator Pesticide Relationship Specialty Start Date End Date System, Provider Not In PCP - General Clinic 08/12/14 07/13/16 documented as of this encounter
--- OUTSIDE RECORDS SUMMARY | 2021-11-28 13:51 | XMS_ITS | Encounter Summary ---
:1980 Author Organization [place] Address [address] [facility] [address] Care Team Providers Name Role Phone System, Provider Not In Primary Care Provider Unavailable Reason for Visit Reason Comments Recheck Medication Encounter Details Date Type Department Care Team Description 11/06/2015 Office Visit [facility] Edgar Alfredo Seasonal allergic rhinitis (Primary Dx); Clinic Ashly Gauthier MD Uncomplicated opioid dependence (H) [address] [place] [phone] Social History Tobacco Use Types Packs/Day Years Used Date Smoking Tobacco: Every Day Cigarettes 0.1 10 Smokeless Tobacco: Never Comments: 5 cigarettes a day Alcohol Use Standard Drinks/Week Comments No 0 (1 standard drink = 0.6 oz pure alcoho l) Sex Assigned at Date Recorded Female 01/14/2020 10:57 AM BUCKET HOOKER documented as of this encounter Last Filed [...] Take 1 tablet by mouth daily ??? Tnwtbola-Oqg-Hz-FA ( VITAMINS) 0.8 MG TABS Take 1 tablet by mouth daily 30 tablet 6 ??? [DISCONTINUED] VITAMINS PO Take by mouth. No Known Allergies Problem list, Medication list, Allergies, and Medical/Social/Surgical histories reviewed in [facility] andupdated as appropriate. ROS: OBJECTIVE: BP [...] visit in 1 MONTH Edgar Alfredo MD [facility] documented in this encounter Nursing [...] Visit Wound Care Luis Camara, [place] [address] [place] [address] (Wo rk) 01/21/2022 Office Visit Gastroenterology Juanis Levi [address] [place] [phone] Luis Fernando Miles MD 516 [facility] [place], [place] [address] documented as of this encounter Procedures Procedure [...] Organization Address City/State/[place] [address] [facility] Building [address] [facility] [address] [facility] Drug abuse [...] LAB - URINE ORDERABLES Performing Organization Address City/State/[facility] [place] [address] [facility] Building [address] [facility] documented in this encounter Visit Diagnoses Diagnosis Seasonal allergic rhinitis - Primary Allergic rhinitis, cause unspecified Uncomplicated opioid dependence (H) Opioid type dependence, unspecified documented in this encounter Care Teams Jelly Maker Relationship Specialty Start Date End Date System, Provider Not In PCP - General Clinic 08/12/14 07/13/16 documented as of this encounter
--- OUTSIDE RECORDS SUMMARY | 2021-11-28 13:51 | XMS_ITS | Encounter Summary ---
:1980 Author Organization [place] Address [address] [facility] [place] [address] Care Team Providers Name Role Phone System, Provider Not In Primary Care Provider Unavailable Reason for Visit Reason Onset Date Comments Refill Request 10/17/2015 Subutex 2mg Encounter Details Date Type Department Care Team Description 10/17/2015 Refill [facility] Edgar Alfredo, Ref ill Request (Subutex Clinic [facility] 2mg ) [address] [place] [address] [place] [phone] (Wo rk) Social History Tobacco Use Types Packs/Day Years Used Date Smoking Tobacco: Every Day Cigarettes 0.1 10 Smokeless Tobacco: Never Comments: 5 cigarettes a day Alcohol Use Standard Drinks/Week Comments No 0 (1 standard drink = 0.6 oz pure alcoho l) Sex Assigned at Date Recorded Female 01/14/2020 10:57 AM DIESEL LOCOMOTIVE FIRER documented as of this encounter Miscellaneous Notes [...] # refills: 0 Last Office Visit with [facility] or [facility] prescribing provider: 09/28/15 Next 5 appointments (look out 90 days) Oct 24, 2015 11:30 AM Return Visit with Edgar Alfredo MD [facility] ([facility]) [address] [place] [address] [address] [facility] [address] Thank you, Mark Roldan Fabrication And Layout Craftsman [facility] documented in this encounter Plan of Treatment Upcoming Encounters Date Type Specialty Care Team Description 11/29/2021 Office Visit Wound Care Luis Camara DPM [address] [facility] [place], [place] [address] (Wo rk) 01/21/2022 Office Visit Gastroenterology Juanis Levi [address] [place] [phone] Luis Fernando Miles MD 516 [facility] [place], [place] [address] documented as of this encounter Visit Diagnoses Diagnosis Uncomplicated opioid dependence (H) - Pr imary Opioid type dependence, unspecified documented in this encounter Care Teams Cafe Associate Relationship Specialty Start Date End Date System, Provider Not In PCP - General Clinic 08/12/14 07/13/16 documented as of this encounter
--- OUTSIDE RECORDS SUMMARY | 2021-11-28 13:51 | XMS_ITS | Encounter Summary ---
:1980 Author Organization [place] Address [address] [facility] [place] [address] Care Team Providers Name Role Phone System, Provider Not In Primary Care Provider Unavailable Reason for Visit Reason Onset Date Comments Medication Request 06/03/2016 Subx bridge Encounter Details Date Type Department Care Team Description 06/03/2016 Telephone [facility] Edgar Alfredo, [facility] ication Request Clinic Ashly VÁSQUEZ (Subx bridge) [address] [place] [address] [place] [phone] (Wo rk) Social History Tobacco Use Types Packs/Day Years Used Date Smoking Tobacco: Every Day Cigarettes 0.1 10 Smokeless Tobacco: Never Comments: 5 cigarettes a day Alcohol Use Standard Drinks/Week Comments No 0 (1 standard drink = 0.6 oz pure alcoho l) Sex Assigned at Date Recorded Female 01/14/2020 10:57 AM COMPENSATION COORDINATOR documented as of this encounter Miscellaneous [...] 06/17/16. Pt would like script sent to [address] Dora Merchant Pad Hand documented in this encounter Plan of Treatment Upcoming Encounters Date Type Specialty Care Team Description 11/29/2021 Office Visit Wound Care Lius Camara, [place] [address] [place], [place] [address] (Wo rk) 01/21/2022 Office Visit Gastroenterology Juanis Levi [address] [place] [address] Luis Fernando Miles MD 516 [facility] [address] [place], [place] [address] documented as of this encounter Visit Diagnoses Diagnosis Uncomplicated opioid dependence (H) Opioid type dependence, unspecified documented in this encounter Care Teams Land Inspector Relationship Specialty Start Date End Date System, Provider Not In PCP - General Clinic 08/12/14 07/13/16 documented as of this encounter
--- OUTSIDE RECORDS SUMMARY | 2021-11-28 13:51 | XMS_ITS | Encounter Summary ---
:1980 Author Organization [place] Address [address] [facility] [place] [address] Care Team Providers Name Role Phone System, Provider Not In Primary Care Provider Unavailable Reason for Visit Reason Onset Date Comments Prior Auth - Medication 10/26/2015 subutex 2 mg Encounter Details Date Type Department Care Team Description 10/26/2015 Telephone [facility] Edgar Alfredo Pri or Auth - Medication Clinic Ashly VÁSQUEZ (subutex 2 mg) [address] [place] [address] [place] [phone] (Wo rk) Social History Tobacco Use Types Packs/Day Years Used Date Smoking Tobacco: Every Day Cigarettes 0.1 10 Smokeless Tobacco: Never Comments: 5 cigarettes a day Alcohol Use Standard Drinks/Week Comments No 0 (1 standard drink = 0.6 oz pure alcoho l) Sex Assigned at Date Recorded Female 01/14/2020 10:57 AM PRINTER APPRENTICE documented as of this encounter Miscellaneous Notes Telephone Encounter - Suyapa Rodriguez CMA - 10/27/2015 9:47 AM CDT PA approval received #[id number], good thru 11/17/15, pt starting pphp 11/18/15 Telephone Encounter - Suyapa Rodriguez CMA - 10/26/2015 2:51 PM CDT PA request sent to [facility]. documented in this encounter Plan of Treatment Upcoming Encounters Date Type Specialty Care Team Description 11/29/2021 Office Visit Wound Care Luis Camara DPM [address] [place], [place] [phone] (Wo rk) 01/21/2022 Office Visit Gastroenterology Juanis Levi [address] [place] [address] Luis Fernando Miles MD 516 [facility] [address] [place], [place] [address] documented as of this encounter Visit Diagnoses Not on filedocumented in this encounter Care Teams Upholstery Repairer Relationship Specialty Start Date End Date System, Provider Not In PCP - General Clinic 08/12/14 07/13/16 documented as of this encounter
--- OUTSIDE RECORDS SUMMARY | 2021-11-28 13:52 | XMS_ITS | Encounter Summary ---
:1980 Author Organization [place] Address [address] [place] [address] Care Team Providers Name Role Phone System, Provider Not In Primary Care Provider Unavailable Reason for Visit Reason Onset Date Comments Medication Question 06/14/2015 Subx Bridge Encounter Details Date Type Department Care Team Description 06/14/2015 Telephone [facility] Edgar Alfredo, [facility] ication Question Clinic Ashly VÁSQUEZ (Subx Bridge) [address] [place] [address] [place] [phone] (Wo rk) Social History Tobacco Use Types Packs/Day Years Used Date Smoking Tobacco: Every Day Cigarettes 0.1 10 Smokeless Tobacco: Never Comments: 5 cigarettes a day Alcohol Use Standard Drinks/Week Comments No 0 (1 standard drink = 0.6 oz pure alcoho l) Sex Assigned at Date Recorded Female 01/14/2020 10:57 AM SENIOR INTERNET SALES CONSULTANT documented as of this encounter Miscellaneous Notes Telephone Encounter - Edgar Alfredo MD - 06/14/2015 12:48 PM CDT Spoke to patient Bridge called in Telephone Encounter - Dora Merchant - 06/14/2015 12:25 PM CDT Incoming call from pt requesting a bridge for subx until next appt on 06/21. Please follow up. Pt contact info: [phone] Script can be sent to [facility] Thank you, Dora Merchant [facility] Telephone Encounter - Dora Merchant - 06/14/2015 11:41 AM CDT Incoming call from pt, documented in this encounter Plan of Treatment Upcoming Encounters Date Type Specialty Care Team Description 11/29/2021 Office Visit Wound Care Luis Camara, [place] [address] [place], [place] [address] (Wo rk) 01/21/2022 Office Visit Gastroenterology Juanis Levi [address] [place] [phone] Luis Fernando Miles MD [address] [address] documented as of this encounter Visit Diagnoses Diagnosis Uncomplicated opioid dependence (H) - Pr imary Opioid type dependence, unspecified documented in this encounter Care Teams Rubber Tire Curer Relationship Specialty Start Date End Date System, Provider Not In PCP - General Clinic 08/12/14 07/13/16 documented as of this encounter
--- OUTSIDE RECORDS SUMMARY | 2021-11-28 13:52 | XMS_ITS | Encounter Summary ---
:1980 Author Organization [place] Address [address] [facility] [place] [address] Care Team Providers Name Role Phone System, Provider Not In Primary Care Provider Unavailable Reason for Visit Reason Onset Date Comments Recheck Medication Erroneous encounter-disregard 09/29/2015 Encounter Details Date Type Department Care Team Description 09/25/2015 Office Visit [facility] Edgar Alfredo ERRONEOUS Clinic Ashly Gauthier MD ENCOUNTER--DISREGARD [address] [place] (Primary Dx) [address] [place] [phone] Social History Tobacco Use Types Packs/Day Years Used Date Smoking Tobacco: Every Day Cigarettes 0.1 10 Smokeless Tobacco: Never Comments: 5 cigarettes a day Alcohol Use Standard Drinks/Week Comments No 0 (1 standard drink = 0.6 oz pure alcoho l) Sex Assigned at Date Recorded Female 01/14/2020 10:57 AM ADVERTISING AGENCY MANAGER documented as of this encounter Progress Notes Edgar Alfredo MD - 09/29/2015 10:42 AM CDT This encounter was opened in error. Please disregard. documented in this encounter Plan of Treatment Upcoming Encounters Date Type Specialty Care Team Description 11/29/2021 Office Visit Wound Care Luis Camara, [place] [address] [place], [place] [phone] (Wo rk) 01/21/2022 Office Visit Gastroenterology Juanis Levi [address] [place] [address] Luis Fernando Miles MD 516 [facility] [address] [place], [place] [address] documented as of this encounter Visit Diagnoses Diagnosis ERRONEOUS ENCOUNTER--DISREGARD - Primary documented in this encounter Care Teams Washer Blanket Relationship Specialty Start Date End Date System, Provider Not In PCP - General Clinic 08/12/14 07/13/16 documented as of this encounter
--- OUTSIDE RECORDS SUMMARY | 2021-11-28 13:52 | XMS_ITS | Encounter Summary ---
:1980 Author Organization [place] Address [address] [facility] [place] [address] Care Team Providers Name Role Phone System, Provider Not In Primary Care Provider Unavailable Reason for Visit Reason Onset Date Comments Recheck Medication Erroneous encounter-disregard 09/25/2015 Encounter Details Date Type Department Care Team Description 09/18/2015 Office Visit [facility] Edgar Alfredo NO SHOW ( Primary Dx); Clinic Ashly Gauthier MD ERRONEOUS ENCOUNTER--DISREGARD [address] [place] [address] [place] [phone] Social History Tobacco Use Types Packs/Day Years Used Date Smoking Tobacco: Every Day Cigarettes 0.1 10 Smokeless Tobacco: Never Comments: 5 cigarettes a day Alcohol Use Standard Drinks/Week Comments No 0 (1 standard drink = 0.6 oz pure alcoho l) Sex Assigned at Date Recorded Female 01/14/2020 10:57 AM PLASTICS HEAT WELDER documented as of this encounter Progress Notes Edgar Alfredo MD - 09/25/2015 9:30 PM CDT This encounter was opened in error. Please disregard. documented in this encounter Plan of Treatment Upcoming Encounters Date Type Specialty Care Team Description 11/29/2021 Office Visit Wound Care Luis Camara, [place] [address] [place], [place] [phone] (Wo rk) 01/21/2022 Office Visit Gastroenterology Juanis Levi [address] [place] [phone] Luis Fernando Miles MD 516 [facility] [address] [place], [place] [address] documented as of this encounter Visit Diagnoses Diagnosis NO SHOW - Primary ERRONEOUS ENCOUNTER--DISREGARD documented in this encounter Care Teams Telephone Operator Relationship Specialty Start Date End Date System, Provider Not In PCP - General Clinic 08/12/14 07/13/16 documented as of this encounter
--- OUTSIDE RECORDS SUMMARY | 2021-11-28 13:52 | XMS_ITS | Encounter Summary ---
:1980 Author Organization [place] Address [address] [facility] [place] [address] Care Team Providers Name Role Phone System, Provider Not In Primary Care Provider Unavailable Reason for Visit Reason Onset Date Comments Erroneous encounter-disregard 05/09/2015 Encounter Details Date Type Department Care Team Description 05/09/2015 Telephone [facility] Ashly VÁSQUEZ encounter-disregard [address] [place] [address] [place] [phone] (Wo rk) Social History Tobacco Use Types Packs/Day Years Used Date Smoking Tobacco: Every Day Cigarettes 0.1 10 Smokeless Tobacco: Never Comments: 5 cigarettes a day Alcohol Use Standard Drinks/Week Comments No 0 (1 standard drink = 0.6 oz pure alcoho l) Sex Assigned at Date Recorded Female 01/14/2020 10:57 AM OVERLOCK OPERATOR documented as of this encounter Plan of Treatment Upcoming Encounters Date Type Specialty Care Team Description 11/29/2021 Office Visit Wound Care Luis Camara DPM [address] [place], [place] [address] (Wo rk) 01/21/2022 Office Visit Gastroenterology Juanis Levi [address] [place] [address] Luis Fernando Miles MD [address] [place] [address] documented as of this encounter Visit Diagnoses Not on filedocumented in this encounter Care Teams Bucket Hooker Relationship Specialty Start Date End Date System, Provider Not In PCP - General Clinic 08/12/14 07/13/16 documented as of this encounter
--- OUTSIDE RECORDS SUMMARY | 2021-11-28 13:52 | XMS_ITS | Encounter Summary ---
:1980 Author Organization [place] Address [address] [facility] [place] [address] Care Team Providers Name Role Phone System, Provider Not In Primary Care Provider Unavailable Reason for Visit Reason Onset Date Comments Refill Request 08/14/2015 Subutex 8mg Encounter Details Date Type Department Care Team Description 08/14/2015 Telephone [facility] Edgar Alfredo, Ref ill Request (Subutex [facility] [place] 8mg) [address] [place] [address] [place] [phone] (Wo rk) Social History Tobacco Use Types Packs/Day Years Used Date Smoking Tobacco: Every Day Cigarettes 0.1 10 Smokeless Tobacco: Never Comments: 5 cigarettes a day Alcohol Use Standard Drinks/Week Comments No 0 (1 standard drink = 0.6 oz pure alcoho l) Sex Assigned at Date Recorded Female 01/14/2020 10:57 AM CO FOUNDER & CEO documented as of this encounter Miscellaneous Notes [...] when this is done Suyapa Murray MLT, CMA Telephone Encounter - Edagr Alfredo MD - 08/14/2015 3:08 PM CDT [...] # refills: 0 Last Office Visit with [facility] or [facility] prescribing provider: 06/22/15 Next 5 appointments (look out 90 days) Sep 12, 2015 10:45 AM Return Visit with Edgar Alfredo MD [facility] [place] [facility] ([facility]) [address] [facility] [phone] Thank you, Mark Roldan [facility] documented in this encounter Plan of Treatment Upcoming Encounters Date Type Specialty Care Team Description 11/29/2021 Office Visit Wound Care Luis Camara, [place] [address] [place] [address] (Wo rk) 01/21/2022 Office Visit Gastroenterology Juanis Levi [address] [place] [address] Luis Fernando Miles MD [address] [facility] [address] [place] [address] documented as of this encounter Visit Diagnoses Diagnosis Uncomplicated opioid dependence (H) - Pr imary Opioid type dependence, unspecified documented in this encounter Care Teams Public Health Service Officer Relationship Specialty Start Date End Date System, Provider Not In PCP - General Clinic 08/12/14 07/13/16 documented as of this encounter
--- OUTSIDE RECORDS SUMMARY | 2021-11-28 13:52 | XMS_ITS | Encounter Summary ---
:1980 Author Organization [place] Address [address] [facility] [place] [address] Care Team Providers Name Role Phone System, Provider Not In Primary Care Provider Unavailable Reason for Visit Reason Onset Date Comments Medication Request 05/09/2015 Encounter Details Date Type Department Care Team Description 05/09/2015 Telephone [facility] Edgar Workman Ma, Medication Request Paulina [address] [place] [address] [place] [phone] (Reinaldo rk) Social History Tobacco Use Types Packs/Day Years Used Date Smoking Tobacco: Every Day Cigarettes 0.1 10 Smokeless Tobacco: Never Comments: 5 cigarettes a day Alcohol Use Standard Drinks/Week Comments No 0 (1 standard drink = 0.6 oz pure alcoho l) Sex Assigned at Date Recorded Female 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/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 documented as of this encounter Miscellaneous [...] appt 05/16 please call pt back at [phone] Vivian Spence, [facility] Brand Ambassadors Promotional Sales Telephone Encounter - Edgar Workman MD - [...] Visit Wound Care Luis Camara, [place] [address] [place] [address] (Wo rk) 01/21/2022 Office Visit Gastroenterology Juanis Levi [address] [place] [phone] Luis Fernando Miles MD 516 [facility] [address] [place], [place] [address] documented as of this encounter Visit Diagnoses Diagnosis Uncomplicated opioid dependence (H) - Pr imary Opioid type dependence, unspecified documented in this encounter Care Teams Medical Staff Services Coordinator Relationship Specialty Start Date End Date System, Provider Not In PCP - General Clinic 08/12/14 07/13/16 documented as of this encounter
--- OUTSIDE RECORDS SUMMARY | 2021-11-28 13:52 | XMS_ITS | Encounter Summary ---
:1980 Author Organization [place] Address [address] [facility] [address] Care Team Providers Name Role Phone System, Provider Not In Primary Care Provider Unavailable Reason for Visit Reason Onset Date Comments Prior Auth - Medication 08/24/2015 subutex 2 mg tab Encounter Details Date Type Department Care Team Description 08/24/2015 Telephone [facility] Edgar Alfredo Pri or Auth - Medication Clinic Ashly VÁSQUEZ (subutex 2 mg tab) [address] [place] [place] [phone] (Wo rk) Social History Tobacco Use Types Packs/Day Years Used Date Smoking Tobacco: Every Day Cigarettes 0.1 10 Smokeless Tobacco: Never Comments: 5 cigarettes a day Alcohol Use Standard Drinks/Week Comments No 0 (1 standard drink = 0.6 oz pure alcoho l) Sex Assigned at Date Recorded Female 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 faxed to pharmacy Telephone Encounter - Suyapa Rodriguez CMA - 08/24/2015 4:01 PM CDT PA request [facility]ed to [facility], marked URGENT documented in this encounter Plan of Treatment Upcoming Encounters Date Type Specialty Care Team Description 11/29/2021 Office Visit Wound Care Luis Camara DPM [address] [place], [place] [phone] (Wo rk) 01/21/2022 Office Visit Gastroenterology Juanis Levi [address] [place] [address] Luis Fernando Miles MD 516 [facility] [address] [place], [place] [phone] documented as of this encounter Visit Diagnoses Not on filedocumented in this encounter Care Teams Barrel Stave Inspector Relationship Specialty Start Date End Date System, Provider Not In PCP - General Clinic 08/12/14 07/13/16 documented as of this encounter
--- OUTSIDE RECORDS SUMMARY | 2021-11-28 13:52 | XMS_ITS | Encounter Summary ---
:1980 Author Organization [place] Address [address] [place] [address] Care Team Providers Name Role Phone System, Provider Not In Primary Care Provider Unavailable Reason for Visit Reason Comments No Show Encounter Details Date Type Department Care Team Description 07/18/2015 Office Visit [facility] Edgar Alfredo NO SHOW ( Primary Dx) Clinic Ashly Gauthier MD [address] [place] [address] [place] [phone] Social History Tobacco Use Types Packs/Day Years Used Date Smoking Tobacco: Every Day Cigarettes 0.1 10 Smokeless Tobacco: Never Comments: 5 cigarettes a day Alcohol Use Standard Drinks/Week Comments No 0 (1 standard drink = 0.6 oz pure alcoho l) Sex Assigned at Date Recorded Female 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 Please disregard. documented in this encounter Plan of Treatment Upcoming Encounters Date Type Specialty Care Team Description 11/29/2021 Office Visit Wound Care Luis Camara DPM [address] [place] [address] (Wo rk) 01/21/2022 Office Visit Gastroenterology Juanis Levi [address] [place] [phone] Luis Fernando Miles MD 516 [facility] [address] [place], [place] [address] documented as of this encounter Visit Diagnoses Diagnosis NO SHOW - Primary documented in this encounter Care Teams Loan Administrator Relationship Specialty Start Date End Date System, Provider Not In PCP - General Clinic 08/12/14 07/13/16 documented as of this encounter
--- OUTSIDE RECORDS SUMMARY | 2021-11-28 13:52 | XMS_ITS | Encounter Summary ---
:1980 Author Organization [place] Address [address] [facility] [place] [address] Care Team Providers Name Role Phone System, Provider Not In Primary Care Provider Unavailable Reason for Visit Reason Comments Recheck Medication Encounter Details Date Type Department Care Team Description 08/24/2015 Office Visit [facility] Edgar Alfredo dep ressive disorder, recurrent episode, moderate (H) (Primary Dx); Clinic Ashly Gauthier MD Uncomplicated opioid dependence (H) [address] [place] [phone] Social History Tobacco Use Types Packs/Day Years Used Date Smoking Tobacco: Every Day Cigarettes 0.1 10 Smokeless Tobacco: Never Comments: 5 cigarettes a day Alcohol Use Standard Drinks/Week Comments No 0 (1 standard drink = 0.6 oz pure alcoho l) Sex Assigned at Date Recorded Female 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 Dhrjxrbn-Rql-Ri-FA ( VITAMINS) 0.8 MG TABS Take 1 tablet by mouth daily 30 tablet 6 ??? [DISCONTINUED] VITAMINS PO Take by mouth. No Known Allergies Problem list, Medication list, Allergies, and Medical/Social/Surgical histories reviewed in [facility] andupdated as appropriate. ROS: OBJECTIVE: BP 130/90 [...] completed using cuff size: miguelangel Rodriguez MLT, DON documented in this encounter Plan of Treatment Upcoming Encounters Date Type Specialty Care Team Description 11/29/2021 Office Visit Wound Care Luis Camara DPM [address] [place], [place] [address] (Wo rk) 01/21/2022 Office Visit Gastroenterology Juanis Leiv [address] [place] [address] Luis Fernando Miles MD 516 [facility] [place], [place] [address] documented as of this encounter Procedures Procedure [...] Organization Address City/State/[place] [address] [facility] Building [address] [facility] Drug abuse screen ([place], R[place]) (08/24/2015 [...] Organization Address City/State/[place] [address] [facility] [address] [facility] documented in this encounter Visit Diagnoses Diagnosis Major depressive disorder, recurrent epi sode, moderate (H) - Primary Major depressive disorder, recurrent epi sode, moderate Uncomplicated opioid dependence (H) Opioid type dependence, unspecified documented in this encounter Care Teams Secret Service Agent Relationship Specialty Start Date End Date System, Provider Not In PCP - General Clinic 08/12/14 07/13/16 documented as of this encounter
--- OUTSIDE RECORDS SUMMARY | 2021-11-28 13:52 | XMS_ITS | Encounter Summary ---
:1980 Author Organization [place] Address [address] [facility] [place] [address] Care Team Providers Name Role Phone System, Provider Not In Primary Care Provider Unavailable Reason for Visit Auth/Cert Specialty Diagnoses / Procedures Referred By Contact Refer red To Contact brass pickler Diagnoses Supervision of high-risk Rh Labor And Delive ry [address] [place], [place] [address] Phone: Fax: Referral ID Status Reason Start Date Expiration Date Visits Requ ested Visits Authorized [id number] 1 1 Encounter Details Date Type Department Care Team Description 07/21/2015 Hospital Encounter [facility] Deirdre Gallardo, Birthplace [address] [employer] [facility] [place], [place] [address] [facility] [address] [facility] [address] [place] [address] (Wo rk) Social History Tobacco Use Types Packs/Day Years Used Date Smoking Tobacco: Every Day Cigarettes 0.1 10 Smokeless Tobacco: Never Comments: 5 cigarettes a day Alcohol Use Standard Drinks/Week Comments No 0 (1 standard drink = 0.6 oz pure alcoho l) Sex Assigned at Date Recorded Female 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 You don't have to handle [...] by 30 tablet 6 12/10/2012 08/30/19 17 Wgnaoasc-Jmo-In-FA mouth daily ( VITAMINS) 0.8 MG TABSIndications: [...] Dr. Verbalized understanding. Allquestions were answered by administrative underwriter. Given footprints and photo card. Pt's family [...] TRUJILLO MD MT: [id number] Name: STEPHANI MCCORMICK MRN: [id number] Account: [id number] : 1980 Delivery Date: 07/21/2015 Document: [id number] Provider Notification - Lisa Trevino RN - [...] RN - 07/21/2015 6:13 PM CDT 07/21/15 6375 Provider Notification Provider Name/Title Dr Trujillo Method [...] Visit Wound Care Luis Camara DPM [address] [place] [address] (Wo rk) 01/21/2022 Office Visit Gastroenterology Juanis Levi [address] [place] [address] Luis Fernando Miles MD [address] [address] Pending Results Name Type Priority Associated Diagnoses [...] CDT) P athologist Signature Cocaine Quant 173 [facility] Comment: Unit: ng/ml Benzoylecgonine Qntu 60,354 [facility] Comment: Unit: ng/ml (Note) Analysis for cocaine and its primary met abolite, benzoylecgonine, is performed by gas chr omatography with mass spectrometry (GC/MS). Results are r eported to the limit of quantitation of the assay. Analysis performed by [employer] [place] [address] Specimen Anatomical Collection Method Collection Time Receive d Time (Source) Location / / Volume Laterality 07/21/2015 10:45 07/22/2015 PM CDT 12:20 AM CDT Ray Trujillo MD LAB - URINE ORDERABLES Performing Organization Address City/[facility]/ZIP Code Phon e Number M [facility] [address] [place], [place] [address] [place] [address] [address] [place], [place] [address] 7, [facility] [phone] (ABNORMAL) Drug abuse scrn 7 UR (/) (RH, SH, UR) (07/21/2015 10:45 PM CDT) Component Value Ref Test Analysis Performed At [facility] [employer] Method Time Signature Amphetamine Qual Negative NEG [facility] Urine Cutoff for a negative amphetamine is 500 ng/mL or less. [facility] Cannabinoids Negative NEG [place] Qual Urine Cutoff for a negative cannabinoid is 50 ng/mL or less. [facility] Cocaine Qual Positive, sent NEG [facility] Urine to [employer] for [facility] (A) Opiates Negative NEG [facility] Qualitative Cutoff for a negative opiate is 300 ng/mL or less. [facility] Pcp Qual Urine Negative NEG [facility] Cutoff for a negative PCP is 25 ng/mL or less. [facility] Specimen Anatomical Collection Method Collection Time Receive d Time (Source) Location / / Volume Laterality Urine specimen URINE SPECIMEN 07/21/2015 10:45 016 (specimen) OBTAINED BY CLEAN PM CDT 11:48 PM C DT CATCH PROCEDURE / Unknown Ray Trujillo MD LAB - URINE ORDERABLES Performing Organization Address City/[facility]/ZIP Code Phon e Number M [facility] [address] [place], [place] [address] [place] [address] [address] [place] [phone] [facility] [[email or web address]] [phone] Surgical Path Exam (07/21/2015 7:36 PM CDT) Component Value Ref Test Analysis Performed At [facility] [employer]™ Range Method Time Signature Copath Report Patient Name: STEPHANI KING MR#: [id number] Specimen #: [id number] Collected: 07/21/2015 Received: 07/24/2015 Reported: 07/31/2015 11:48 [...] history, the certified medical biller's office was contacte d 07/31/15 at 11:34AM and declined jurisdiction. ??It [...] 15 cm long three vessel cord is clamp carrier operator d at the abdominal wall. ??The [...] only. GROSS MEASUREMENTS: Round-rump length: [address]-heel length: 23 cm Head circumference: 16.3 cm Intercanthal distance: 0.9 cm Inner canthal distance: 3.6 cm Palm finger hand length: 2.4 cm foot length: 2.9 cm Chest circumference: 15.4 cm Abdominal circumference: 15.7 cm B: ??The specimen is received in formalin labeled with the p atcole's name, identifying information and placenta . ??It [...] identified. No ret roplacental hematoma are identified. ??Crystal Slicer sections are submi tted in 3 blocks. MICROSCOPIC: A: No microscopic performed. ??Per clinical request, gross e xternal exam only. B: There are patchy areas of perimembraneous degenerative ch guillermina. ??There is meconium staining. ??The placental villi appear edematous . The placenta shows no evidence of infarction, villitis, or obvio us vasculopathy. CPT Codes: A: 92018-[place], SOH B: 14767-[id number] TESTING LAB LOCATION: [address] ??[id number] COLLECTION SITE: Client: [facility] Location: RHOB (R) Specimen Anatomical Collection Method Collection Time Receive d Time (Source) Location / / Volume Laterality 07/21/2015 7:36 PM 6 3:39 CDT PM CDT Ray BLOUNT - ALYCE SCHAEFER Performing Organization Address City/State/ZIP Code Phon e Number COPATH US OB Limited One Or More Fetuses (07/21/2015 6:38 PM CDT) Anatomical Region Laterality Modality Abdomen/Pelvis Ultrasound Specimen (Source) Anatomical Location Collection Method / Collectio n Time Received Time / Laterality Volume Impressions 07/21/2015 6:48 PM CDT IMPRESSION: Oligohydramnios with dilated cervix at 8 cm. ??Fetus is nursing home through the lower uterine segmen t and [...] dilated cervix at 8 cm. Fetus is nursing home through the lower uterine segmen t and into the dilated cervical canal. Fetus is in breech prese ntation. Cardiac activity measures 188 beats per minute. VERNON BARRY MD Ray Trujillo MD IMG US ORDERABLES Blood component (07/21/2015 6:32 PM CDT) [facility] Method Time Signature Unit Number [id number] [facility] Blood Red Blood [facility] Component Cells [facility] Reduced Division 00 [facility] Status of No longer [facility] Unit available [facility] 07/25/2015 HOSPITAL 0300 Blood Product [id number] [facility] Unit Status RET [facility] Specimen Anatomical Collection Method Collection Time Receive d Time (Source) Location / / Volume Laterality 07/21/2015 6:32 PM 6 6:42 CDT PM CDT Ray Trujillo MD LABORATORY Performing Organization Address City/[facility]/ZIP Code Phon e Number [facility] [address], [place] [address] [facility] [address] [place], [place] [address] [place] [address] HIV Antigen Antibody Combo (07/21/2015 6:32 PM CDT) Patholo gist Method Time Signature HIV Antigen Nonreactive NR [facility] Antibody HIV-1 p24 Ag & HIV-1/HIV-2 Ab Not Detected [place] [facility] Combo [facility] Specimen Anatomical Collection Method Collection Time Receive d Time (Source) Location / / Volume Laterality Blood specimen 07/21/2015 6:32 PM 016 6:42 (specimen) CDT PM CDT Ray Trujillo MD LAB - BLOOD ORDERABLES Performing Organization Address City/[facility]/ZIP Code Phon e Number [facility] [address] [place] [address] [facility] Anti Treponema (07/21/2015 6:32 PM CDT) Analysis Performed At Patho logist Time Signature Treponema Negative NEG [facility] MEDICAL Antibody [facility] [place] Specimen Anatomical Collection Method Collection Time Receive d Time (Source) Location / / Volume Laterality Blood specimen 07/21/2015 6:32 PM 016 6:42 (specimen) CDT PM CDT Ray Trujillo MD LAB - BLOOD ORDERABLES Performing Organization Address City/State/ZIP Code Phon e Number [facility] [address] [place] [address] [place] Rubella Antibody IgG Quantitative (07/21/2015 6:32 PM CDT) Analysis Performed At Patho logist Time Signature Rubella Antibody 7 IU/mL [facility] IgG Quantitative [facility] Comment: Negative Reference Range: ?? Unvaccinated Negative [...] Phon e Number [facility] [address] [place] [address] [place] (ABNORMAL) Hemoglobin (07/21/2015 6:32 PM CDT) athologist Signature Hemoglobin 10.7 (L) 11.7 - 15.7 [facility] g/dL [facility] Specimen Anatomical Collection Method Collection Time Receive d Time (Source) Location / / Volume Laterality Blood specimen 07/21/2015 6:32 PM 016 6:42 (specimen) CDT PM CDT Ray Trujillo MD LAB - BLOOD ORDERABLES Performing Organization Address City/[facility]/ZIP Code Phon e Number M [facility] [address] [place], [place] [address] [phone] [facility] [address] [phone] ABO/Rh type and screen (07/21/2015 6:32 PM CDT) Patholo gist Method Time Signature Units Ordered 1 [facility] ABO B [facility] RH(D) Pos [facility] Antibody Neg [facility] Screen [facility] Test Valid [facility] Only At [facility] Specimen 07/24/2015 [facility] Specimen Anatomical Collection Method Collection Time Receive d Time (Source) Location / / Volume Laterality Blood specimen 07/21/2015 6:32 PM 016 6:42 (specimen) CDT PM CDT Ray Trujillo MD LAB - BLOOD BANK TEST ORDER Performing Organization Address City/State/ZIP Code Phon e Number M [facility] [address] [place], [place] [address] [facility] [address] [phone] documented in this encounter Visit Diagnoses Diagnosis Supervision of high-risk Unspecified high-risk documented in this encounter Administered Medications Inactive Administered Medications - up to 3 most recent administrations Medication Order MAR Action Action Date Dose Rate Site ibuprofen (ADVIL,MOTRIN) tablet Given 07/21/2015 8:07 PM CDT 800 mg 800 mg 800 mg, Oral, ONCE PRN, moderate pain, mild-moderate pain, Starting on Fri07/21/15 at 1900, [...] units in 0.9% NaCl 1000 mL (CANCELED) 1935 (New Bag - Provider: Ann Marie Aviles [...] 1840 (Given by Other - Provider: Lisa Trevino RN) 500-1,000 mL/hr, Intravenous, at 500-1,0 00 mL/hr, ONCE PRN, for hemorrhage, Starting Fri07/21/15 at 2009, For 1 dose, Deliver a total of 1000mLfluid bolus documented in this encounter Care Teams Digital Marketing Strategist Relationship Specialty Start Date End Date System, Provider Not In PCP - General Clinic 08/12/14 07/13/16 documented as of this encounter
--- OUTSIDE RECORDS SUMMARY | 2021-11-28 13:52 | XMS_ITS | Encounter Summary ---
:1980 Author Organization [place] Address [address] [facility] [place] [address] Care Team Providers Name Role Phone System, Provider Not In Primary Care Provider Unavailable Reason for Visit Reason Onset Date Comments Recheck Medication Erroneous encounter-disregard 05/07/2015 Encounter Details Date Type Department Care Team Description 05/02/2015 Office Visit [facility] Edgar Alfredo ERRONEOUS Clinic Ashly Gauthier MD ENCOUNTER--DISREGARD [address] [place] (Primary Dx) [address] [place] [phone] Social History Tobacco Use Types Packs/Day Years Used Date Smoking Tobacco: Every Day Cigarettes 0.1 10 Smokeless Tobacco: Never Comments: 5 cigarettes a day Alcohol Use Standard Drinks/Week Comments No 0 (1 standard drink = 0.6 oz pure alcoho l) Sex Assigned at Date Recorded Female 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 Please disregard. documented in this encounter Plan of Treatment Upcoming Encounters Date Type Specialty Care Team Description 11/29/2021 Office Visit Wound Care Luis Camara, [place] [address] [place], [place] [address] (Wo rk) 01/21/2022 Office Visit Gastroenterology Juanis Levi [address] [place] [phone] Luis Fernando Miles MD [address] [facility] [address] [place], [place] [address] documented as of this encounter Visit Diagnoses Diagnosis ERRONEOUS ENCOUNTER--DISREGARD - Primary documented in this encounter Care Teams [place] Headgate Operator Relationship Specialty Start Date End Date System, Provider Not In PCP - General Clinic 08/12/14 07/13/16 documented as of this encounter
--- OUTSIDE RECORDS SUMMARY | 2021-11-28 13:52 | XMS_ITS | Encounter Summary ---
:1980 Author Organization [place] Address [address] [facility] [address] Care Team Providers Name Role Phone System, Provider Not In Primary Care Provider Unavailable Reason for Visit Reason Onset Date Comments Medication Request 07/19/2015 Encounter Details Date Type Department Care Team Description 07/19/2015 Telephone [facility] Edgar Alfredo, [facility] ication Request Clinic Ashly VÁSQUEZ ([phone]) [address] [place] [address] [place] [address] (Wo rk) Social History Tobacco Use Types Packs/Day Years Used Date Smoking Tobacco: Every Day Cigarettes 0.1 10 Smokeless Tobacco: Never Comments: 5 cigarettes a day Alcohol Use Standard Drinks/Week Comments No 0 (1 standard drink = 0.6 oz pure alcoho l) Sex Assigned at Date Recorded Female 01/14/2020 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 Please follow up. Pt contact info: [phone] (Ok to leave detailed message, per pt) Thank you, Dora Merchant Precipitator Operator [facility] documented in this encounter Plan of Treatment Upcoming Encounters Date Type Specialty Care Team Description 11/29/2021 Office Visit Wound Care Luis Camara DPM [address] [place], [place] [address] (Wo rk) 01/21/2022 Office Visit Gastroenterology Juanis Levi [address] [place] [address] Luis Fernando Miles MD 516 [facility] [address] [place], [place] [address] documented as of this encounter Visit Diagnoses Diagnosis Uncomplicated opioid dependence (H) - Pr imary Opioid type dependence, unspecified documented in this encounter Care Teams Ice Cream Freezer Relationship Specialty Start Date End Date System, Provider Not In PCP - General Clinic 08/12/14 07/13/16 documented as of this encounter
--- OUTSIDE RECORDS SUMMARY | 2021-11-28 13:52 | XMS_ITS | Encounter Summary ---
:1980 Author Organization [place] Address [address] [facility] [place] [address] Care Team Providers Name Role Phone System, Provider Not In Primary Care Provider Unavailable Reason for Visit Reason Onset Date Comments Erroneous encounter-disregard 08/18/2015 Encounter Details Date Type Department Care Team Description 08/18/2015 Office Visit [facility] Edgar Alfredo NO SHOW ( Primary Dx); Clinic Ashly Gauthier MD ERRONEOUS ENCOUNTER--DISREGARD [address] [place] [address] [place] [address] Social History Tobacco Use Types Packs/Day Years Used Date Smoking Tobacco: Every Day Cigarettes 0.1 10 Smokeless Tobacco: Never Comments: 5 cigarettes a day Alcohol Use Standard Drinks/Week Comments No 0 (1 standard drink = 0.6 oz pure alcoho l) Sex Assigned at Date Recorded Female 01/14/2020 10:57 AM SHAKER TENDER documented as of this encounter Progress Notes Edgar Alfredo MD - 08/18/2015 10:30 PM CDT This encounter was opened in error. Please disregard. documented in this encounter Plan of Treatment Upcoming Encounters Date Type Specialty Care Team Description 11/29/2021 Office Visit Wound Care Luis Camara, [place] [address] [place], [place] [address] (Wo rk) 01/21/2022 Office Visit Gastroenterology Juanis Levi [address] [place] [address] Luis Fernando Miles MD 516 [facility] [address] [place], [place] [address] documented as of this encounter Visit Diagnoses Diagnosis NO SHOW - Primary ERRONEOUS ENCOUNTER--DISREGARD documented in this encounter Care Teams Set Off Press Operator Relationship Specialty Start Date End Date System, Provider Not In PCP - General Clinic 08/12/14 07/13/16 documented as of this encounter
--- OUTSIDE RECORDS SUMMARY | 2021-11-28 13:52 | XMS_ITS | Encounter Summary ---
:1980 Author Organization [place] Address [address] [facility] [place] [address] Care Team Providers Name Role Phone System, Provider Not In Primary Care Provider Unavailable Reason for Visit Reason Onset Date Comments No Show Erroneous encounter-disregard 08/21/2015 Encounter Details Date Type Department Care Team Description 08/14/2015 Office Visit [facility] Edgar Alferdo NO SHOW ( Primary Dx); Clinic Ashly Gauthier MD ERRONEOUS ENCOUNTER--DISREGARD [address] [place] [address] [place] [address] Social History Tobacco Use Types Packs/Day Years Used Date Smoking Tobacco: Every Day Cigarettes 0.1 10 Smokeless Tobacco: Never Comments: 5 cigarettes a day Alcohol Use Standard Drinks/Week Comments No 0 (1 standard drink = 0.6 oz pure alcoho l) Sex Assigned at Date Recorded Female 01/14/2020 10:57 AM 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 Please disregard. documented in this encounter Plan of Treatment Upcoming Encounters Date Type Specialty Care Team Description 11/29/2021 Office Visit Wound Care Luis Camara, [place] [address] [place], [place] [address] (Wo rk) 01/21/2022 Office Visit Gastroenterology Juanis Levi [address] [place] [phone] Luis Fernando Miles MD 6 [facility] [address] [place], [place] [address] documented as of this encounter Visit Diagnoses Diagnosis NO SHOW - Primary ERRONEOUS ENCOUNTER--DISREGARD documented in this encounter Care Teams Side Panel Padder Relationship Specialty Start Date End Date System, Provider Not In PCP - General Clinic 08/12/14 07/13/16 documented as of this encounter
--- OUTSIDE RECORDS SUMMARY | 2021-11-28 13:52 | XMS_ITS | Encounter Summary ---
:1980 Author Organization [place] Address [address] [facility] [place] [address] Care Team Providers Name Role Phone System, Provider Not In Primary Care Provider Unavailable Reason for Visit Reason Onset Date Comments Medication Request 05/02/2015 Encounter Details Date Type Department Care Team Description 05/02/2015 Telephone [facility] Edgar Alfredo Ma, Medication Request [place] [address] [place] [address] [place] [address] (Reinaldo rk) Social History Tobacco Use Types Packs/Day Years Used Date Smoking Tobacco: Every Day Cigarettes 0.1 10 Smokeless Tobacco: Never Comments: 5 cigarettes a day Alcohol Use Standard Drinks/Week Comments No 0 (1 standard drink = 0.6 oz pure alcoho l) Sex Assigned at Date Recorded Female 01/14/2020 10:57 AM BUSINESS BROKER documented as of this encounter Miscellaneous Notes [...] until next scheduled appt please send to [facility] pharmacy Vivian Spence [facility] Customer Service Clerk documented in this encounter Plan of Treatment Upcoming Encounters Date Type Specialty Care Team Description 11/29/2021 Office Visit Wound Care Luis Camara DPM [address] [place], [place] [address] (Wo rk) 01/21/2022 Office Visit Gastroenterology Juanis Levi [address] [place] [phone] Luis Fernando Miles MD 516 [facility] [address] [place] [address] documented as of this encounter Visit Diagnoses Diagnosis Uncomplicated opioid dependence (H) - Pr imary Opioid type dependence, unspecified documented in this encounter Care Teams Pattern Keeper Relationship Specialty Start Date End Date System, Provider Not In PCP - General Clinic 08/12/14 07/13/16 documented as of this encounter
--- OUTSIDE RECORDS SUMMARY | 2021-11-28 13:52 | XMS_ITS | Encounter Summary ---
:1980 Author Organization [place] Address [address] [facility] [place] [address] Care Team Providers Name Role Phone System, Provider Not In Primary Care Provider Unavailable Reason for Visit Reason Onset Date Comments Medication Request 07/18/2015 Suboxone Encounter Details Date Type Department Care Team Description 07/18/2015 Telephone [facility] System, Provider Not Me dication Request Clinic [place] (Suboxone) [address] [place] [address] Social History Tobacco Use Types Packs/Day Years Used Date Smoking Tobacco: Every Day Cigarettes 0.1 10 Smokeless Tobacco: Never Comments: 5 cigarettes a day Alcohol Use Standard Drinks/Week Comments No 0 (1 standard drink = 0.6 oz pure alcoho l) Sex Assigned at Date Recorded Female 01/14/2020 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 Please follow up contact info: [phone] Ok to leave detail message Mark Roldan [facility] documented in this encounter Plan of Treatment Upcoming Encounters Date Type Specialty Care Team Description 11/29/2021 Office Visit Wound Care Luis Camara DPM [address] [place], [place] [address] (Wo rk) 01/21/2022 Office Visit Gastroenterology Juanis Levi [address] [place] [phone] Luis Fernando Miles MD 516 [facility] [address] [place], [place] [address] documented as of this encounter Visit Diagnoses Diagnosis Uncomplicated opioid dependence (H) - Pr imary Opioid type dependence, unspecified documented in this encounter Care Teams Director Of Collections And Archives Relationship Specialty Start Date End Date System, Provider Not In PCP - General Clinic 08/12/14 07/13/16 documented as of this encounter
--- OUTSIDE RECORDS SUMMARY | 2021-11-28 13:52 | XMS_ITS | Encounter Summary ---
:1980 Author Organization [place] Address [address] [facility] [place] [address] Care Team Providers Name Role Phone System, Provider Not In Primary Care Provider Unavailable Reason for Visit Reason Onset Date Comments Refill Request 08/22/2015 Emergency Appointmen t Needed Today (SUBOXONE) Encounter Details Date Type Department Care Team Description 08/22/2015 Telephone [facility] Edgar Alfredo, Ref ill Request Clinic Ashly VÁSQUEZ (Emergency Appointment [address] [place] Needed Today [address] (SUBOXONE)) [place] [phone] (Wo rk) Social History Tobacco Use Types Packs/Day Years Used Date Smoking Tobacco: Every Day Cigarettes 0.1 10 Smokeless Tobacco: Never Comments: 5 cigarettes a day Alcohol Use Standard Drinks/Week Comments No 0 (1 standard drink = 0.6 oz pure alcoho l) Sex Assigned at Date Recorded Female 01/14/2020 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 documented as of this encounter Miscellaneous [...] requesting bridge script call back number is [phone], stated she would like a call back [...] 08/22/2015 11:08 AM CDT Patient called from [phone] stating she has missed her last 4 [...] Care Luis Camara DPM [address] [place] [address] (Wo rk) 01/21/2022 Office Visit Gastroenterology Juanis Levi [address] [place] [phone] Luis Fernando Miles MD 6 [facility] [address] [place] [address] documented as of this encounter Visit Diagnoses Not on filedocumented in this encounter Care Teams Roll Wrapper Relationship Specialty Start Date End Date System, Provider Not In PCP - General Clinic 08/12/14 07/13/16 documented as of this encounter
--- OUTSIDE RECORDS SUMMARY | 2021-11-28 13:52 | XMS_ITS | Encounter Summary ---
:1980 Author Organization [place] Address [address] [facility] [place] [address] Care Team Providers Name Role Phone System, Provider Not In Primary Care Provider Unavailable Reason for Visit Reason Onset Date Comments Medication Request 08/09/2015 Subutex Encounter Details Date Type Department Care Team Description 08/09/2015 Telephone [facility] Edgar Alfredo, [facility] ication Request Clinic Ashly VÁSQUEZ (Subutex) [address] [place] [address] [place] [phone] (Wo rk) Social History Tobacco Use Types Packs/Day Years Used Date Smoking Tobacco: Every Day Cigarettes 0.1 10 Smokeless Tobacco: Never Comments: 5 cigarettes a day Alcohol Use Standard Drinks/Week Comments No 0 (1 standard drink = 0.6 oz pure alcoho l) Sex Assigned at Date Recorded Female 01/14/2020 10:57 AM 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 YES Call taken on 08/09/2015 at 2:08 PM by Mark Roldan Thank you, Mark Roldan Breakfast And Room Attendant [facility] documented in this encounter Plan of Treatment Upcoming Encounters Date Type Specialty Care Team Description 11/29/2021 Office Visit Wound Care Luis Camara, [place] [address] [place] [address] (Wo rk) 01/21/2022 Office Visit Gastroenterology Juanis Levi [address] [place] [address] Luis Fernando Miles MD 516 [facility] [address] [place] [address] documented as of this encounter Visit Diagnoses Diagnosis Uncomplicated opioid dependence (H) - Pr imary Opioid type dependence, unspecified documented in this encounter Care Teams Backend Tester Relationship Specialty Start Date End Date System, Provider Not In PCP - General Clinic 08/12/14 07/13/16 documented as of this encounter
--- OUTSIDE RECORDS SUMMARY | 2021-11-28 13:52 | XMS_ITS | Encounter Summary ---
:1980 Author Organization [place] Address [address] [facility] [place] [address] Care Team Providers Name Role Phone System, Provider Not In Primary Care Provider Unavailable Reason for Visit Reason Onset Date Comments Erroneous encounter-disregard 07/21/2015 Encounter Details Date Type Department Care Team Description 07/21/2015 Telephone [facility] Alfred[facility], [facility] encounter-disregard [address] [place] [address] [place] [phone] (Wo rk) Social History Tobacco Use Types Packs/Day Years Used Date Smoking Tobacco: Every Day Cigarettes 0.1 10 Smokeless Tobacco: Never Comments: 5 cigarettes a day Alcohol Use Standard Drinks/Week Comments No 0 (1 standard drink = 0.6 oz pure alcoho l) Sex Assigned at Date Recorded Female 01/14/2020 10:57 AM OUTDOOR ADVENTURE GUIDES documented as of this encounter Miscellaneous Notes Telephone Encounter - Suyapa Rodriguez CMA - 07/21/2015 11:02 AM CDT ! documented in this encounter Plan of Treatment Upcoming Encounters Date Type Specialty Care Team Description 11/29/2021 Office Visit Wound Care Luis Camara, DPCamryn [address]09 [place], [place] [phone] (Wo rk) 01/21/2022 Office Visit Gastroenterology Juanis Levi [address] [place] [phone] Luis Fernando Miles MD 516 [facility] [address] [place], [place] [phone] documented as of this encounter Visit Diagnoses Not on filedocumented in this encounter Care Teams Outreach Consultant Relationship Specialty Start Date End Date System, Provider Not In PCP - General Clinic 08/12/14 07/13/16 documented as of this encounter
--- OUTSIDE RECORDS SUMMARY | 2021-11-28 13:52 | XMS_ITS | Encounter Summary ---
:1980 Author Organization [place] Address [address] [facility] [place] [address] Care Team Providers Name Role Phone System, Provider Not In Primary Care Provider Unavailable Reason for Visit Reason Onset Date Comments Recheck Medication Erroneous encounter-disregard 05/23/2015 Encounter Details Date Type Department Care Team Description 05/09/2015 Office Visit [facility] Edgar Alfredo NO SHOW ( Primary Dx); Clinic Ashly Gauthier MD ERRONEOUS ENCOUNTER--DISREGARD [address] [place] [address] [place] [phone] Social History Tobacco Use Types Packs/Day Years Used Date Smoking Tobacco: Every Day Cigarettes 0.1 10 Smokeless Tobacco: Never Comments: 5 cigarettes a day Alcohol Use Standard Drinks/Week Comments No 0 (1 standard drink = 0.6 oz pure alcoho l) Sex Assigned at Date Recorded Female 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 Please disregard. documented in this encounter Plan of Treatment Upcoming Encounters Date Type Specialty Care Team Description 11/29/2021 Office Visit Wound Care Luis Camara, [place] [address] [place] [address] (Wo rk) 01/21/2022 Office Visit Gastroenterology Juanis Levi [address] [place] [phone] Luis Fernando Miles MD 516 [facility] [address]A [place], [place] [phone] documented as of this encounter Visit Diagnoses Diagnosis NO SHOW - Primary ERRONEOUS ENCOUNTER--DISREGARD documented in this encounter Care Teams Individual Pension Adviser Relationship Specialty Start Date End Date System, Provider Not In PCP - General Clinic 08/12/14 07/13/16 documented as of this encounter
--- OUTSIDE RECORDS SUMMARY | 2021-11-28 13:52 | XMS_ITS | Encounter Summary ---
:1980 Author Organization [place] Address [address] [facility] [place] [address] Care Team Providers Name Role Phone System, Provider Not In Primary Care Provider Unavailable Reason for Visit Reason Onset Date Comments Refill Request 06/12/2015 Bridge needed for giraldo bx Encounter Details Date Type Department Care Team Description 06/12/2015 Telephone [facility] Edgar Alfredo, Ref ill Request ([facility] [place] MD needed for subx ) [address] [place] [address] [place] [phone] (Wo rk) Social History Tobacco Use Types Packs/Day Years Used Date Smoking Tobacco: Every Day Cigarettes 0.1 10 Smokeless Tobacco: Never Comments: 5 cigarettes a day Alcohol Use Standard Drinks/Week Comments No 0 (1 standard drink = 0.6 oz pure alcoho l) Sex Assigned at Date Recorded Female 01/14/2020 10:57 AM 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 Please follow up. Pt contact info: [phone] Thank you, Dora Merchant [facility] documented in this encounter Plan of Treatment Upcoming Encounters Date Type Specialty Care Team Description 11/29/2021 Office Visit Wound Care Luis Camara DPM [address] [place] [address] (Wo rk) 01/21/2022 Office Visit Gastroenterology Juanis Levi [address] [place] [address] Luis Fernando Miles MD 516 [facility] [address] [place] [address] documented as of this encounter Visit Diagnoses Diagnosis Uncomplicated opioid dependence (H) - Pr imary Opioid type dependence, unspecified documented in this encounter Care Teams Arm Maker Relationship Specialty Start Date End Date System, Provider Not In PCP - General Clinic 08/12/14 07/13/16 documented as of this encounter
--- OUTSIDE RECORDS SUMMARY | 2021-11-28 13:52 | XMS_ITS | Encounter Summary ---
:1980 Author Organization [place] Address [address] [facility] [address] Care Team Providers Name Role Phone System, Provider Not In Primary Care Provider Unavailable Reason for Visit Reason Onset Date Comments Prior Auth - Medication 05/17/2015 subutex 8 mg Encounter Details Date Type Department Care Team Description 05/17/2015 Telephone [facility] Edgar Alfredo Pri or Auth - Medication Clinic Ashly VÁSQUEZ (subutex 8 mg) [address] [place] [address] [place] [phone] (Wo rk) Social History Tobacco Use Types Packs/Day Years Used Date Smoking Tobacco: Every Day Cigarettes 0.1 10 Smokeless Tobacco: Never Comments: 5 cigarettes a day Alcohol Use Standard Drinks/Week Comments No 0 (1 standard drink = 0.6 oz pure alcoho l) Sex Assigned at Date Recorded Female 01/14/2020 10:57 AM CLEARANCE 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 Faxed to pharmacy. Telephone [...] 1:48 PM CDT PA request faxed to [facility], marked URGENT. documented in this encounter Plan of Treatment Upcoming Encounters Date Type Specialty Care Team Description 11/29/2021 Office Visit Wound Care Luis Camara DPM [address] [place] [address] (Wo rk) 01/21/2022 Office Visit Gastroenterology Juanis Levi [address] [place] [phone] Luis Fernando Miles MD 516 [facility] [address] [place], [place] [address] documented as of this encounter Visit Diagnoses Diagnosis Uncomplicated opioid dependence (H) - Pr imary Opioid type dependence, unspecified documented in this encounter Care Teams Script Coordinator Relationship Specialty Start Date End Date System, Provider Not In PCP - General Clinic 08/12/14 07/13/16 documented as of this encounter
--- OUTSIDE RECORDS SUMMARY | 2021-11-28 13:52 | XMS_ITS | Encounter Summary ---
:1980 Author Organization [place] Address [address] [facility] [place] [address] Care Team Providers Name Role Phone System, Provider Not In Primary Care Provider Unavailable Reason for Visit Reason Onset Date Comments Recheck Medication Erroneous encounter-disregard 06/13/2015 Encounter Details Date Type Department Care Team Description 06/12/2015 Office Visit [facility] Edgar Alfredo NO SHOW ( Primary Dx); Clinic Ashly Gauthier MD ERRONEOUS ENCOUNTER--DISREGARD [address] [place] [address] [place] [phone] Social History Tobacco Use Types Packs/Day Years Used Date Smoking Tobacco: Every Day Cigarettes 0.1 10 Smokeless Tobacco: Never Comments: 5 cigarettes a day Alcohol Use Standard Drinks/Week Comments No 0 (1 standard drink = 0.6 oz pure alcoho l) Sex Assigned at Date Recorded Female 01/14/2020 10:57 AM HAND MARKER documented as of this encounter Progress Notes Edgar Alfredo MD - 06/13/2015 1:56 PM CDT This encounter was opened in error. Please disregard. documented in this encounter Plan of Treatment Upcoming Encounters Date Type Specialty Care Team Description 11/29/2021 Office Visit Wound Care Luis Camara, [place] [address] [place] [address] (Wo rk) 01/21/2022 Office Visit Gastroenterology Juanis Levi [address] [place] [phone] Luis Fernando Miles MD 516 [facility] [address] [place], [place] [phone] documented as of this encounter Visit Diagnoses Diagnosis NO SHOW - Primary ERRONEOUS ENCOUNTER--DISREGARD documented in this encounter Care Teams Window Caser Relationship Specialty Start Date End Date System, Provider Not In PCP - General Clinic 08/12/14 07/13/16 documented as of this encounter
--- OUTSIDE RECORDS SUMMARY | 2021-11-28 13:52 | XMS_ITS | Encounter Summary ---
:1980 Author Organization [place] Address [address] [facility] [address] Care Team Providers Name Role Phone System, Provider Not In Primary Care Provider Unavailable Reason for Visit Reason Onset Date Comments Patient Request 09/18/2015 Bridge for Subutex Encounter Details Date Type Department Care Team Description 09/18/2015 Telephone [facility] Edgar Alfredo Pat ient Request ([facility] [place] MD for Subutex) [address] [place] [address] [place] [phone] (Wo rk) Social History Tobacco Use Types Packs/Day Years Used Date Smoking Tobacco: Every Day Cigarettes 0.1 10 Smokeless Tobacco: Never Comments: 5 cigarettes a day Alcohol Use Standard Drinks/Week Comments No 0 (1 standard drink = 0.6 oz pure alcoho l) Sex Assigned at Date Recorded Female 01/14/2020 10:57 AM BOX CAR WASHER documented as of this encounter Miscellaneous Notes [...] be reached at: Home number on file [phone] (home) Best Time: Anytime Can we leave a detailed message on this number? YES Call taken on 09/18/2015 at 3:32 PM by Mark Roldan Thank you, Mark Roldan Account Services Representative [facility] documented in this encounter Plan of Treatment Upcoming Encounters Date Type Specialty Care Team Description 11/29/2021 Office Visit Wound Care Luis Camara DPM [address] [place], [place] [phone] (Wo rk) 01/21/2022 Office Visit Gastroenterology Juanis Levi [address] [place] [phone] Luis Fernando Miles MD [address] [address] documented as of this encounter Visit Diagnoses Diagnosis Uncomplicated opioid dependence (H) - Pr imary Opioid type dependence, unspecified documented in this encounter Care Teams Rock Crusher Relationship Specialty Start Date End Date System, Provider Not In PCP - General Clinic 08/12/14 07/13/16 documented as of this encounter
--- OUTSIDE RECORDS SUMMARY | 2021-11-28 13:52 | XMS_ITS | Encounter Summary ---
:1980 Author Organization [place] Address [address] [facility] [place] [address] Care Team Providers Name Role Phone System, Provider Not In Primary Care Provider Unavailable Reason for Visit Reason Onset Date Comments No Show Erroneous encounter-disregard 08/14/2015 Encounter Details Date Type Department Care Team Description 08/14/2015 Office Visit [facility] Edgar Alfredo NO SHOW ( Primary Dx); Clinic Ashly Gauthier MD ERRONEOUS ENCOUNTER--DISREGARD [address] [place] [address] [place] [phone] Social History Tobacco Use Types Packs/Day Years Used Date Smoking Tobacco: Every Day Cigarettes 0.1 10 Smokeless Tobacco: Never Comments: 5 cigarettes a day Alcohol Use Standard Drinks/Week Comments No 0 (1 standard drink = 0.6 oz pure alcoho l) Sex Assigned at Date Recorded Female 01/14/2020 10:57 AM GLUER 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 Please disregard. documented in this encounter Plan of Treatment Upcoming Encounters Date Type Specialty Care Team Description 11/29/2021 Office Visit Wound Care Luis Camara, [place] [address] [place], [place] [address] (Wo rk) 01/21/2022 Office Visit Gastroenterology Juanis Levi [address] [place] [phone] Luis Fernando Miles MD 6 [facility] 2[address] [place], [place] [address] documented as of this encounter Visit Diagnoses Diagnosis NO SHOW - Primary ERRONEOUS ENCOUNTER--DISREGARD documented in this encounter Care Teams Prototype Model Maker Relationship Specialty Start Date End Date System, Provider Not In PCP - General Clinic 08/12/14 07/13/16 documented as of this encounter
--- OUTSIDE RECORDS SUMMARY | 2021-11-28 13:52 | XMS_ITS | Encounter Summary ---
:1980 Author Organization [place] Address [address] [facility] [place] [address] Care Team Providers Name Role Phone System, Provider Not In Primary Care Provider Unavailable Reason for Visit Reason Comments Recheck Medication Encounter Details Date Type Department Care Team Description 06/22/2015 Office Visit [facility] Edgar Alfredo Uncomplic ated opioid Clinic Ashly Gauthier MD dependence (H) (Primary [address] Dx) [address] [place] [address] [place] [phone] Social History Tobacco Use Types Packs/Day Years Used Date Smoking Tobacco: Every Day Cigarettes 0.1 10 Smokeless Tobacco: Never Comments: 5 cigarettes a day Alcohol Use Standard Drinks/Week Comments No 0 (1 standard drink = 0.6 oz pure alcoho l) Sex Assigned at Date Recorded Female 01/14/2020 10: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 Jomeeoon-Plo-Ra-FA ( VITAMINS) 0.8 MG TABS Take 1 [...] list, Allergies, and Medical/Social/Surgical histories reviewed in [facility] andupdated as appropriate. ROS: OBJECTIVE: BP 132/79 [...] visit in 1 MONTH Edgar Alfredo MD [facility] documented in this encounter Nursing [...] Visit Wound Care Luis Camara DPM [address] [place], [place] [address] (Wo rk) 01/21/2022 Office Visit Gastroenterology Juanis Levi [address] [place] [address] Luis Fernando Miles MD 6 [facility] 2A [place] [address] documented as of this encounter Procedures Procedure [...] Organization Address City/State/[place] [address] [facility] [address] [place] [address] [address] [facility] Drug abuse screen ([place], RW) (06/22/2015 [...] Organization Address City/State/[place] [address] [facility] [address] [facility] documented in this encounter Visit Diagnoses Diagnosis Uncomplicated opioid dependence (H) - Pr imary Opioid type dependence, unspecified documented in this encounter Care Teams Director Global Relationship Specialty Start Date End Date System, Provider Not In PCP - General Clinic 08/12/14 07/13/16 documented as of this encounter
--- OUTSIDE RECORDS SUMMARY | 2021-11-28 13:52 | XMS_ITS | Encounter Summary ---
:1980 Author Organization [place] Address [address] [facility] [place] [address] Care Team Providers Name Role Phone System, Provider Not In Primary Care Provider Unavailable Reason for Visit Reason Onset Date Comments Recheck Medication Erroneous encounter-disregard 05/23/2015 Encounter Details Date Type Department Care Team Description 05/17/2015 Office Visit [facility] Edgar Alfredo dep ressive disorder, recurrent episode, moderate (H) (Primary Dx); Clinic Ashly Gauthier MD Uncomplicated opioid dependence (H); [address] ERRONEOUS ENCOUNTER--DISREGA [address] [place] [address] [place] [phone] Social History Tobacco Use Types Packs/Day Years Used Date Smoking Tobacco: Every Day Cigarettes 0.1 10 Smokeless Tobacco: Never Comments: 5 cigarettes a day Alcohol Use Standard Drinks/Week Comments No 0 (1 standard drink = 0.6 oz pure alcoho l) Sex Assigned at Date Recorded Female 01/14/2020 10:57 AM DIRECTOR OF PUBLIC SAFETY documented as of this encounter Last Filed [...] Visit Wound Care Luis Camara DPM [address] [place], [place] [phone] (Wo rk) 01/21/2022 Office Visit Gastroenterology Juanis Levi [address] [place] [address] Luis Fernando Miles MD [address] [phone] documented as of this encounter Procedures Procedure [...] Buprenorphine Qual Urine (05/17/2015 11:43 AM CDT) Patholo gist Method Time Signature Buprenorphine Positive [facility] Qual Urine Specimen Anatomical Collection Method Collection Time Receive d Time (Source) Location / / Volume Laterality Urine specimen 05/17/2015 11:43 6 (specimen) AM CDT 11:48 AM CDT Edgar Alfredo MD LAB - URINE ORDERABLES Performing Organization Address City/[facility] [place] [address] [facility] Building [address] [...] LAB - URINE ORDERABLES Performing Organization Address City/[facility] [place] [address] [facility] [address] [address] [facility] documented in this encounter Visit Diagnoses Diagnosis Major depressive disorder, recurrent epi sode, moderate (H) - Primary Major depressive disorder, recurrent epi sode, moderate Uncomplicated opioid dependence (H) Opioid type dependence, unspecified ERRONEOUS ENCOUNTER--DISREGARD documented in this encounter Care Teams Certified Residential Medication Aide Relationship Specialty Start Date End Date System, Provider Not In PCP - General Clinic 08/12/14 07/13/16 documented as of this encounter
--- OUTSIDE RECORDS SUMMARY | 2021-11-28 13:53 | XMS_ITS | Encounter Summary ---
:1980 Author Organization [place] Address [address] [facility] [place] [address] Care Team Providers Name Role Phone System, Provider Not In Primary Care Provider Unavailable Reason for Visit Reason Onset Date Comments Transfer Note 10/10/2014 Encounter Details Date Type Department Care Team Description 10/10/[address] 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, verified [facility] received these records. Syeda, Junior Web Developer, will contact patient to schedule upcoming appts with [facility]. documented in this encounter Plan of Treatment Upcoming Encounters Date Type Specialty Care Team Description 11/29/2021 Office Visit Wound Care Luis Camara DPM [address] [place], [place] [address] (Wo rk) 01/21/2022 Office Visit Gastroenterology Juanis eLvi [address] [place] [address] Luis Fernando Miles MD 516 [facility] [address] [place] [address] documented as of this encounter Visit Diagnoses Not on filedocumented in this encounter Care Teams Industrial Yard Brake Coupler Relationship Specialty Start Date End Date System, Provider Not In PCP - General Clinic 08/12/14 07/13/16 documented as of this encounter
--- OUTSIDE RECORDS SUMMARY | 2021-11-28 13:53 | XMS_ITS | Encounter Summary ---
:1980 Author Organization [place] Address [address] [place] [address] Care Team Providers Name Role Phone System, Provider Not In Primary Care Provider Unavailable Reason for Visit Reason Onset Date Comments Call Back 12/12/2014 Encounter Details Date Type Department Care Team Description 12/12/2014 Telephone [facility] Nithya Alfredo MD Call Back [place] [address] [facility] [address] [place], [place] [address] [phone] [place] [address] [phone] Social History Tobacco Use Types Packs/Day Years Used Date Smoking Tobacco: Every Day Cigarettes 0.1 10 Smokeless Tobacco: Never Comments: 5 cigarettes a day Alcohol Use Standard Drinks/Week Comments No 0 (1 standard drink = 0.6 oz pure alcoho l) Sex Assigned at Date Recorded Female 01/14/2020 10:57 AM DIRECTOR PLANS documented as of this encounter Miscellaneous Notes [...] was regarding please call pt back at [phone] [facility] Collection Correspondent documented in this encounter Plan of Treatment Upcoming Encounters Date Type Specialty Care Team Description 11/29/2021 Office Visit Wound Care Luis Camara DPM 909 [place], [place] [phone] (Wo rk) 01/21/2022 Office Visit Gastroenterology Juanis Levi 2450 [place] [address] Luis Fernando Miles MD 516 [facility] [address]A [place], [place] [phone] documented as of this encounter Visit Diagnoses Not on filedocumented in this encounter Care Teams Financial Planning Consultant Relationship Specialty Start Date End Date System, Provider Not In PCP - General Clinic 08/12/14 07/13/16 documented as of this encounter
--- OUTSIDE RECORDS SUMMARY | 2021-11-28 13:53 | XMS_ITS | Encounter Summary ---
:1980 Author Organization [place] Address [facility] [place] [address] Care Team Providers Name Role Phone System, Provider Not In Primary Care Provider Unavailable Reason for Visit Reason Comments Ultrasound ECHO, comp u/s: possib le heart anomaly Consult MFM consult: possible heart anomaly Encounter Details Date Type Department Care Team Description 08/22/[address] 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 LAW 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 documented as of this encounter Plan of Treatment Upcoming Encounters Date Type Specialty Care Team Description 11/29/2021 Office Visit Wound Care Luis Camara DPM 909 [place], [place] [address] (Wo rk) 01/21/2022 Office Visit Gastroenterology Juanis Levi 2450 [place] [phone] Luis Fernando Miles MD [address] [address] documented as of this encounter Visit Diagnoses Not on filedocumented in this encounter Care Teams Greens Or Grounds Superintendent Relationship Specialty Start Date End Date System, Provider Not In PCP - General Clinic 08/12/14 07/13/16 documented as of this encounter
--- OUTSIDE RECORDS SUMMARY | 2021-11-28 13:53 | XMS_ITS | Encounter Summary ---
:1980 Author Organization [place] Address [address] [facility] [place] [address] Care Team Providers Name Role Phone System, Provider Not In Primary Care Provider Unavailable Encounter Details Date Type Department Care Team Description 04/24/2015 Telephone [facility] Nithya Alfredo MD [place] [address] [place] [address] [place], [place] [address] [address] [place] [address] [phone] Social History Tobacco Use Types Packs/Day Years Used Date Smoking Tobacco: Every Day Cigarettes 0.1 10 Smokeless Tobacco: Never Comments: 5 cigarettes a day Alcohol Use Standard Drinks/Week Comments No 0 (1 standard drink = 0.6 oz pure alcoho l) Sex Assigned at Date Recorded Female 01/14/2020 10:57 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 documented as of this encounter Miscellaneous Notes Addendum Note - Suyapa Murray CMA - 04/24/2015 1:41 PM MILK PASTEURIZER Addended by: SUYAPA MURRAY on: 04/24/2015 01:41 PM Modules accepted: Medications PASTEURIZER Telephone Encounter - Edgar Alfredo MD - 04/24/2015 12:31 PM CST Bridge ordered PASTEURIZER Telephone Encounter - Vivian Spence CMA - 04/24/2015 12:19 PM CST Incoming call from pt requesting a bridge in Subutex pt scheduled 04/30 please send refill to [address] Vivian Spence, [facility] Image Archivist .3s PASTEURIZER documented in this encounter Plan of Treatment Upcoming Encounters Date Type Specialty Care Team Description 11/29/2021 Office Visit Wound Care Luis Camara DPM 909 [place] [address] (Wo rk) 01/21/2022 Office Visit Gastroenterology Juanis Levi 2450 [place] [address] Luis Fernando Miles MD 516 [facility] 2[address] [place] [address] documented as of this encounter Visit Diagnoses Diagnosis Uncomplicated opioid dependence (H) - Pr imary Opioid type dependence, unspecified documented in this encounter Care Teams Striping Machine Operator Relationship Specialty Start Date End Date System, Provider Not In PCP - General Clinic 08/12/14 07/13/16 documented as of this encounter
--- OUTSIDE RECORDS SUMMARY | 2021-11-28 13:53 | XMS_ITS | Encounter Summary ---
:1980 Author Organization [place] Address [address] [place] [address] Care Team Providers Name Role Phone System, Provider Not In Primary Care Provider Unavailable Reason for Visit Reason Onset Date Comments Erroneous encounter-disregard 10/11/2014 Encounter Details Date Type Department Care Team Description 10/11/2014 Office Visit [facility] Edgar Alfredo ERRONEOUS Clinic Ashly Gauthier MD ENCOUNTER--DISREGARD [address] [place] (Primary Dx) [address] [place] [phone] Social History Tobacco Use Types Packs/Day Years Used Date Smoking Tobacco: Every Day Cigarettes 0.1 10 Smokeless Tobacco: Never Comments: 5 cigarettes a day Alcohol Use Standard Drinks/Week Comments No 0 (1 standard drink = 0.6 oz pure alcoho l) Sex Assigned at Date Recorded Female 01/14/2020 10:57 AM MARKETING PERFORMANCE ANALYST documented as of this encounter Progress Notes Edgar Alfredo MD - 10/11/2014 2:25 PM CDT This encounter was opened in error. Please disregard. documented in this encounter Plan of Treatment Upcoming Encounters Date Type Specialty Care Team Description 11/29/2021 Office Visit Wound Care Luis Camara [place] [address] [place], [place] [address] (Wo rk) 01/21/2022 Office Visit Gastroenterology Juanis Levi 2450 [place] [address] Luis Feranndo Miles MD 516 [facility] 2A [place], [place] [address] documented as of this encounter Visit Diagnoses Diagnosis ERRONEOUS ENCOUNTER--DISREGARD - Primary documented in this encounter Care Teams Soft Mud Molder Relationship Specialty Start Date End Date System, Provider Not In PCP - General Clinic 08/12/14 07/13/16 documented as of this encounter
--- OUTSIDE RECORDS SUMMARY | 2021-11-28 13:53 | XMS_ITS | Encounter Summary ---
:1980 Author Organization [place] Address [address] [facility] [place] [address] Care Team Providers Name Role Phone System, Provider Not In Primary Care Provider Unavailable Reason for Visit Reason Comments Recheck Medication Encounter Details Date Type Department Care Team Description 11/03/2014 Office Visit [facility] Edgar Alfredoplic ated opioid dependence (H) (Primary Dx); Clinic Ashly Gauthier MD Opiate dependence (H) [address] [place] [address] [place] [phone] Social History Tobacco Use Types Packs/Day Years Used Date Smoking Tobacco: Every Day Cigarettes 0.1 10 Smokeless Tobacco: Never Comments: 5 cigarettes a day Alcohol Use Standard Drinks/Week Comments No 0 (1 standard drink = 0.6 oz pure alcoho l) Sex Assigned at Date Recorded Female 01/14/2020 10:57 AM CAREER AND GUIDANCE COUNSELOR documented as of this encounter Last Filed [...] Take 1 tablet by mouth daily ??? Cafeqysm-Cer-Tx-FA ( VITAMINS) 0.8 MG TABS Take 1 [...] list, Allergies, and Medical/Social/Surgical histories [facility] andupdated as appropriate. ROS: Constitutional, [...] in 1 MONTH Edgar Alfredo MD, MD [facility] documented in this encounter Nursing [...] Care Luis Camara DPM 909 [place] [address] (Wo rk) 01/21/2022 Office Visit Gastroenterology Juanis Levi 2450 [place] [address] Luis Fernando Miles MD [address] [place], [place] [address] [address] [place] [address] documented as of this encounter Procedures Procedure [...] Organization Address City/State/[place] [address] [facility] Building [address] [place] [address] [address] LAB Drug abuse screen (NL, [...] [facility] [place] [address] [facility] Building [address] [place] LAB documented in this encounter Visit Diagnoses Diagnosis Uncomplicated opioid dependence (H) - Pr imary Opioid type dependence, unspecified documented in this encounter Care Teams Electrical Unit Rebuilder Relationship Specialty Start Date End Date System, Provider Not In PCP - General Clinic 08/12/14 07/13/16 documented as of this encounter
--- OUTSIDE RECORDS SUMMARY | 2021-11-28 13:53 | XMS_ITS | Encounter Summary ---
:1980 Author Organization [place] Address [address]50 [facility] [place] [address] Care Team Providers Name Role Phone System, Provider Not In Primary Care Provider Unavailable Reason for Visit Reason Comments Recheck Medication Encounter Details Date Type Department Care Team Description 11/24/2014 Office Visit [facility] Edgar Alfredo Uncomplic ated opioid Clinic Ashyl Gauthier MD dependence (H) (Primary [address] Dx) [address] [place] [address] [place] [phone] Social History Tobacco Use Types Packs/Day Years Used Date Smoking Tobacco: Every Day Cigarettes 0.1 10 Smokeless Tobacco: Never Comments: 5 cigarettes a day Alcohol Use Standard Drinks/Week Comments No 0 (1 standard drink = 0.6 oz pure alcoho l) Sex Assigned at Date Recorded Female 01/14/2020 10:57 AM TOY ELECTRIC 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 Ygfexjag-Xce-Rq-FA ( VITAMINS) 0.8 MG TABS Take 1 [...] and Medical/Social/Surgical histories reviewed in [facility] andupdated as appropriate. OBJECTIVE: BP 113/81 mmHg [...] RE-CHECK 1 MONTH} Edgar Alfredo MD, MD [facility] documented in this encounter Nursing Notes Suyapa Rodriguez CMA - 11/24/2014 3:19 PM CDT Chief Complaint Patient presents with ??? Recheck Medication Initial BP 113/81 mmHg Pulse 98 Estimated body mass index is 30.96 kg/(m^2) as calculated from thefollowing: Height as of 01/07/13: 5' 5.5 (1.664 m). Weight as of 07/28/14: 189 lb (85.73 kg). BP completed using cuff size: regular Suyapa Rodriguez MLT, CMA documented in this encounter Plan of Treatment Upcoming Encounters Date Type Specialty Care Team Description 11/29/2021 Office Visit Wound Care Luis Camara DPM 909 [place] [address] (Wo rk) 01/21/2022 Office Visit Gastroenterology Juanis Levi 2450 [place] [address] Luis Fernando Miles MD 516 [facility] 2A [place] [address] documented as of this encounter [...] Organization Address City/State/[place] [address] [facility] Building [address] [...] LAB - URINE ORDERABLES Performing Organization Address City/[facility] [place] [address] [facility] [address] LAB documented in this encounter Visit Diagnoses Diagnosis Uncomplicated opioid dependence (H) - Pr imary Opioid type dependence, unspecified documented in this encounter Care Teams Environmental Economist Relationship Specialty Start Date End Date System, Provider Not In PCP - General Clinic 08/12/14 07/13/16 documented as of this encounter
--- OUTSIDE RECORDS SUMMARY | 2021-11-28 13:53 | XMS_ITS | Encounter Summary ---
:1980 Author Organization [place] Address [address] [place] [address] Care Team Providers Name Role Phone System, Provider Not In Primary Care Provider Unavailable Reason for Referral - Closed Specialty Diagnoses / Procedures Referred By Contact Refer red To Contact Diagnoses Unspecified complication of , antepartum Angelique Brewer MD [address] [place] [address] Referral ID Status Reason Start Date Expiration Date Visits Requ ested Visits Authorized [id number] Closed 08/12/2014 02/08/2015 1 1 Encounter Details Date Type Department Care Team Description 08/12/2014 [facility] Only [facility] Angelique Brewer MD Unspecified Maternal [address] complica tion of Medicine [place] [address] , [place] [address] (Primary Dx) [address] [phone] [place], [place] [address] (Work) [phone] Social History Tobacco Use Types Packs/Day Years Used Date Smoking Tobacco: Every Day Cigarettes 0.1 10 Smokeless Tobacco: Never Comments: 5 cigarettes a day Alcohol Use Standard Drinks/Week Comments No 0 (1 standard drink = 0.6 oz pure alcoho l) Sex Assigned at Date Recorded Female 01/14/2020 10:57 AM BACK ROLL 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 [address] [place] [address] Scheduled Referrals Name Type Priority Associated Diagnoses Order S chedule [facility] Referral Routine Unspecified complicatio n of Ordered: 08/12/2014 REFERRAL- , antepartum documented as of this encounter Visit Diagnoses Diagnosis Unspecified complication of , a ntepartum - Primary documented in this encounter Care Teams Folding Machine Feeder Relationship Specialty Start Date End Date System, Provider Not In PCP - General Clinic 08/12/14 07/13/16 documented as of this encounter
--- OUTSIDE RECORDS SUMMARY | 2021-11-28 13:53 | XMS_ITS | Encounter Summary ---
:1980 Author Organization [place] Address 2450 [facility] [place] [address] Care Team Providers Name Role Phone System, [...] Expiration Date Visits Requ ested Visits Authorized [id number] Closed 08/12/2014 02/08/2015 1 1 Encounter Details Date Type Department Care Team Description 08/24/2014 Office Visit [facility] Breanna Coleman con genital heart Maternal MD Julian defect, antepartum Medicine Center [address] [place], [place] [address] [address] [place] [phone] Social History Tobacco Use Types Packs/Day Years Used Date Smoking Tobacco: Every Day Cigarettes 0.1 10 Smokeless Tobacco: Never Comments: 5 cigarettes a day Alcohol Use Standard Drinks/Week Comments No 0 (1 standard drink = 0.6 oz pure alcoho l) Sex Assigned at Date Recorded Female 01/14/2020 10:57 AM SENIOR ACCOUNTS PAYABLE SPECIALIST documented as of this encounter Progress Notes Breanna Coleman MD - 08/26/2014 3:38 PM CDT The patient was seen for an ultrasound and consultation in the Maternal- Medicine Center at [facility] today. The following is the summary of [...] that delivery will need to be at [facility] where NICU and Pediatric Cardiology as well [...] of this patient and/or family members. Approximate ytto-fp-fuhg time was 30 minutes. Breanna Coleman MD Maternal- Medicine & Clinical Genetics August 24, 2014 documented in this encounter Nursing Notes Sintia Rasheed RN - 08/24/2014 3:27 PM CDT Pt seen for comp u/s, ECHO, and MFM consult. Pediatric Cardiology and Dr Coleman met with patient. Plan for patient to return to [facility] in 4 weeks for f/u comp u/s, 1st OBV, and f/u ECHO. Will schedule pt for NICU consult at that appointment. documented in this encounter Plan of Treatment Upcoming Encounters Date Type Specialty Care Team Description 11/29/2021 Office Visit Wound Care Luis Camara, [place] [address] [place], [place] [address] (Wo rk) 01/21/2022 Office Visit Gastroenterology Juanis Levi [address] [place] [address] Luis Fernando Miles MD 516 [facility] 2A [place] [address] documented as of this encounter Visit Diagnoses Diagnosis congenital heart defect, antepartu m Other known or suspected abnormali ty, not elsewhere classified, affecting management of mother, antepartum conditi on or complication documented in this encounter Care Teams Pot Room Supervisor Relationship Specialty Start Date End Date System, Provider Not In PCP - General Clinic 08/12/14 07/13/16 documented as of this encounter
--- OUTSIDE RECORDS SUMMARY | 2021-11-28 13:53 | XMS_ITS | Encounter Summary ---
:1980 Author Organization [place] Address [address]50 [facility] [place] [address] Care Team Providers Name Role Phone System, Provider Not In Primary Care Provider Unavailable Reason for Visit Reason Comments Recheck Medication Encounter Details Date Type Department Care Team Description 09/20/2014 Office Visit [facility] Edgar Alfredoplic ated opioid dependence (H) (Primary Dx); Clinic Ashly Gauthier MD Opiate dependence (H) [address] [place] [address] [place] [phone] Social History Tobacco Use Types Packs/Day Years Used Date Smoking Tobacco: Every Day Cigarettes 0.1 10 Smokeless Tobacco: Never Comments: 5 cigarettes a day Alcohol Use Standard Drinks/Week Comments No 0 (1 standard drink = 0.6 oz pure alcoho l) Sex Assigned at Date Recorded Female 01/14/2020 10:57 AM MEDICARE SALES 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 documented as of this encounter Last [...] Take 1 tablet by mouth daily ??? Vjuoacsa-Wvs-Ja-FA ( VITAMINS) 0.8 MG TABS Take 1 [...] list, Allergies, and Medical/Social/Surgical histories reviewed in [facility] andupdated as appropriate. ROS: Constitutional, [...] RE-CHECK 5 WEEKS Edgar Alfredo MD, MD [facility] documented in this [...] Visit Wound Care Luis Camara DPM 9[address] [place], [place] [phone] (Wo rk) 01/21/2022 Office Visit Gastroenterology Juanis Levi [address] [place] [address] Luis Fernando Miles MD [address] [phone] documented as of this encounter Procedures Procedure [...] Buprenorphine Qual Urine (09/20/2014 11:24 AM CDT) Patholo gist Method Time Signature Buprenorphine Positive [facility] LAB Qual Urine Specimen Anatomical Collection Method Collection Time Receive d Time (Source) Location / / Volume Laterality Urine specimen 09/20/2014 11:24 5 (specimen) AM CDT 11:29 AM CDT Edgar Alfredo MD LAB - URINE ORDERABLES Performing Organization Address City/[facility] [place] [address] [facility] Building [address] [place], [place] [address] [address] RJ LAB Drug abuse [...] LAB - URINE ORDERABLES Performing Organization Address City/[facility] [place] [address] [facility] Building [address] [facility] LAB documented in this encounter Visit Diagnoses Diagnosis Uncomplicated opioid dependence (H) - Pr imary Opioid type dependence, unspecified documented in this encounter Care Teams Water Plant Operator Relationship Specialty Start Date End Date System, Provider Not In PCP - General Clinic 08/12/14 07/13/16 documented as of this encounter
--- OUTSIDE RECORDS SUMMARY | 2021-11-28 13:53 | XMS_ITS | Encounter Summary ---
:1980 Author Organization [place] Address [address] [facility] [place] [address] Care Team Providers Name Role Phone System, Provider Not In Primary Care Provider Unavailable Reason for Visit Reason Onset Date Comments Medication Request 02/09/2015 buprenorphine (SUBUT EX) 8 MG SUBL Encounter Details Date Type Department Care Team Description 02/09/2015 Telephone [facility] Edgar Alfredo, [facility] ication Request Clinic Ashly VÁSQUEZ (buprenorphine [address] [place] (SUBUTEX) 8 MG SUBL) [address] [place] [phone] (Wo rk) Social History Tobacco Use Types Packs/Day Years Used Date Smoking Tobacco: Every Day Cigarettes 0.1 10 Smokeless Tobacco: Never Comments: 5 cigarettes a day Alcohol Use Standard Drinks/Week Comments No 0 (1 standard drink = 0.6 oz pure alcoho l) Sex Assigned at Date Recorded Female 01/14/2020 10:57 AM PANTS BUSHELER documented as of this encounter Miscellaneous Notes Telephone Encounter - Edgar Alfredo MD - 02/09/2015 1:37 PM CST Not sure what this is about; had 28 day supply ordered 01/19/15 - should last until 02/16/15 Does not have an appointment ; may need a bridge S BUSHELER Telephone Encounter - Suyapa Rodriguez CMA - 02/09/2015 12:08 PM PANTS BUSHELER Pharmacy called, given vacation override to fill early. S BUSHELER Telephone Encounter - Shayy Boles - 02/09/2015 11:44 AM CST Incoming call from patient requesting to speak with a nurse regarding her medication for buprenorphine (SUBUTEX) 8 MG SUBL. Patient states she was told by her pharmacy that they would need and ok from provider to get this medication refilled. Patient can be reached at [phone] Shayy Boles Team Golf Club Weighter S BUSHELER documented in this encounter Plan of Treatment Upcoming Encounters Date Type Specialty Care Team Description 11/29/2021 Office Visit Wound Care Luis Camara DPM 909 [place] [address] (Wo rk) 01/21/2022 Office Visit Gastroenterology Juanis Levi 2450 [place] [phone] Luis Fernando Miles MD 516 [facility] 2A [place] [address] documented as of this encounter Visit Diagnoses Not on filedocumented in this encounter Care Teams Crane Helper Relationship Specialty Start Date End Date System, Provider Not In PCP - General Clinic 08/12/14 07/13/16 documented as of this encounter
--- OUTSIDE RECORDS SUMMARY | 2021-11-28 13:53 | XMS_ITS | Encounter Summary ---
:1980 Author Organization [place] Address [address] [place] [address] Care Team Providers Name Role Phone System, Provider Not In Primary Care Provider Unavailable Reason for Visit Reason Onset Date Comments Call Back 02/13/2015 Encounter Details Date Type Department Care Team Description 02/13/2015 Telephone [facility] Nithya Alfredo MD Call Back [place] [address] [facility] [address] [place], [place] [address] [phone] [place] [phone] Social History Tobacco Use Types Packs/Day Years Used Date Smoking Tobacco: Every Day Cigarettes 0.1 10 Smokeless Tobacco: Never Comments: 5 cigarettes a day Alcohol Use Standard Drinks/Week Comments No 0 (1 standard drink = 0.6 oz pure alcoho l) Sex Assigned at Date Recorded Female 01/14/2020 10:57 AM SENIOR LEAD PROJECT MANAGER documented as of this encounter Miscellaneous Notes Addendum Note - Suyapa Murray CMA - 02/16/2015 9:57 AM SENIOR LEAD PROJECT MANAGER Addended by: SUYAPA MURRAY on: 02/16/2015 09:57 AM Modules accepted: Orders, Medications OR LEAD PROJECT MANAGER Telephone Encounter - Suyapa Murray CMA - 02/13/2015 2:34 PM CST Talked to patient, made appt for 03/02 at 3pm, I will called in Rx on . Told she needs to make this last until her next visit. OR LEAD PROJECT MANAGER Telephone Encounter - Suyapa Murray CMA - 02/13/2015 1:27 PM CST Response from Dr. Alfredo: OK to call in a bridge until 03/02; Subutex 8 mg #11, 1.5 per day. Needs to make this last until 03/02 as we do not replace lost meds Left VM message for pt to call me back. Suyapa Murray, BRADLY, DON OR LEAD PROJECT MANAGER Telephone Encounter - Suyapa Murray CMA - 02/13/2015 11:29 AM SENIOR LEAD PROJECT MANAGER Message E-mailed to Dr. Alfredo, awaiting response: Patient called, will run out of meds by 02/20/15, should have enough to 02/23/15, she doesn't know why she's short, baby still in Hospital, so been going there a lot. No appt yet, first available . 03/02 (just one slot at the moment). Do you want to call in a bridge or squeeze her in somewhere? OR LEAD PROJECT MANAGER Addendum Note - Nora Scott - 02/13/2015 10:45 AM SENIOR LEAD PROJECT MANAGER Addended by: NORA SCOTT on: 02/13/2015 10:45 AM Modules accepted: Orders OR LEAD PROJECT MANAGER Telephone Encounter - Nora Scott - 02/13/2015 10:33 AM CST Pt returned call, pt is requesting to see on 02/20/15 because she states she will be out of medication by then. Japanese Professor stated was full that day, but tech writer would send a message over to to see when he can see the patient and if he's willing to do a bridge of medication until that day. Pt states if a bridge is called in she would like to use the [facility] [place] in [place], [place]. Pt can be reached at [phone]. Nora Scott Team Brand Manager OR LEAD PROJECT MANAGER Telephone Encounter - Nora Scott - 02/13/2015 10:25 AM CST Pt called and LVM on 02/09/15 requesting a call back from 's nurse. Japanese Professor attempted to call patient back on 02/13/15 to find out more details, but no answer. LVM asking patient to call the clinic back with any questions she may have. Nora Scott Team Brand Manager OR LEAD PROJECT MANAGER documented in this encounter Plan of Treatment Upcoming Encounters Date Type Specialty Care Team Description 11/29/2021 Office Visit Wound Care Luis Camara DPM [address] [place] [address] (Wo rk) 01/21/2022 Office Visit Gastroenterology Juanis Levi [address] [place] [phone] Luis Fernando Miles MD 516 [facility] [address] [place], [place] [address] documented as of this encounter Visit Diagnoses Diagnosis Uncomplicated opioid dependence (H) - Pr imary Opioid type dependence, unspecified documented in this encounter Care Teams Folder Stitcher Operator Relationship Specialty Start Date End Date System, Provider Not In PCP - General Clinic 08/12/14 07/13/16 documented as of this encounter
--- OUTSIDE RECORDS SUMMARY | 2021-11-28 13:53 | XMS_ITS | Encounter Summary ---
:1980 Author Organization [place] Address [address] [facility] [place] [address] Care Team Providers Name Role Phone System, Provider Not In Primary Care Provider Unavailable Reason for Visit Reason Onset Date Comments Clinic Care Coordination - Follow-up 08/12/2014 Encounter Details Date Type Department Care Team Description 08/12/[address] [facility] Vivian Duncan, Clinic Care Coordination Maternal Medicine RN - [facility] [address] [place] [address] Social History Tobacco Use Types Packs/Day Years Used Date Smoking Tobacco: Every Day Cigarettes 0.1 10 Smokeless Tobacco: Never Comments: 5 cigarettes a day Alcohol Use Standard Drinks/Week Comments No 0 (1 standard drink = 0.6 oz pure alcoho l) Sex Assigned at Date Recorded Female 01/14/2020 10:57 AM FLATBED COMPANY DRIVER documented as of this encounter Miscellaneous Notes Telephone Encounter - Vivian Duncan - 08/12/2014 4:06 PM CDT Patient had requested that a patient career services officer from [facility] call her to answer some of her questions. Stephani expressed that the ultrasound that she had today at [facility] showed abnormalities of the heart. The patient sounded very anxious about this and asked for statistics on how babies do with similar findings, how to treat this, and what the worst case scenerio would be. This typewriter tester was unable to give her any information about these; there has been no formal diagnosis. Stephani has an appointment set up for August 24 for a echo, comprehensive ultrasound, and MFM consult at [facility]. Encouraged patient to write down questions that [...] Visit Wound Care Luis Camara DPM [address] [place], [place] [phone] (Wo rk) 01/21/2022 Office Visit Gastroenterology Juanis Levi [address] [place] [address] Luis Fernando Miles MD [address] [address] documented as of this encounter Visit Diagnoses Not on filedocumented in this encounter Care Teams Plasterer Maintenance Relationship Specialty Start Date End Date System, Provider Not In PCP - General Clinic 08/12/14 07/13/16 documented as of this encounter
--- OUTSIDE RECORDS SUMMARY | 2021-11-28 13:53 | XMS_ITS | Encounter Summary ---
:1980 Author Organization [place] Address [address] [facility] [place] [address] Care Team Providers Name Role Phone System, Provider Not In Primary Care Provider Unavailable Reason for Visit Reason Onset Date Comments Recheck Medication Erroneous encounter-disregard 05/07/2015 Encounter Details Date Type Department Care Team Description 05/01/[address] [facility] Edgar Alfredo ERRONEOUS Clinic Ashly Gauthier MD ENCOUNTER--DISREGARD [address] [place] (Primary Dx) [address] [place] [phone] Social History Tobacco Use Types Packs/Day Years Used Date Smoking Tobacco: Every Day Cigarettes 0.1 10 Smokeless Tobacco: Never Comments: 5 cigarettes a day Alcohol Use Standard Drinks/Week Comments No 0 (1 standard drink = 0.6 oz pure alcoho l) Sex Assigned at Date Recorded Female 01/14/2020 10:57 AM REFINERY OPERATOR L[employer] EN[employer] RECOVERY documented as of this encounter Progress Notes Edgar Alfredo MD - 05/07/2015 10:46 AM CDT This encounter was opened in error. Please disregard. documented in this encounter Plan of Treatment Upcoming Encounters Date Type Specialty Care Team Description 11/29/2021 Office Visit Wound Care Luis Camara, [place] [address] [place], [place] [phone] (Wo rk) 01/21/2022 Office Visit Gastroenterology Juanis Levi [address] [place] [phone] Luis Fernando Miles MD 516 [facility] [address] [place], [place] [address] documented as of this encounter Visit Diagnoses Diagnosis ERRONEOUS ENCOUNTER--DISREGARD - Primary documented in this encounter Care Teams Air Cargo Specialist Supervisor Relationship Specialty Start Date End Date System, Provider Not In PCP - General Clinic 08/12/14 07/13/16 documented as of this encounter
--- OUTSIDE RECORDS SUMMARY | 2021-11-28 13:53 | XMS_ITS | Encounter Summary ---
:1980 Author Organization [place] Address [address] [facility] [place] [address] Care Team Providers Name Role Phone System, Provider Not In Primary Care Provider Unavailable Reason for Visit Reason Onset Date Comments Clinic Care Coordination - Follow-up 10/06/2014 Encounter Details Date Type Department Care Team Description 10/06/2014 Telephone [facility] Breanna Coleman Clinic Ca re Coordination Maternal Medicine MD Julian - Follow-up Center [place] [address] [place], [place] [phone] Social History Tobacco Use Types Packs/Day Years Used Date Smoking Tobacco: Every Day Cigarettes 0.1 10 Smokeless Tobacco: Never Comments: 5 cigarettes a day Alcohol Use Standard Drinks/Week Comments No 0 (1 standard drink = 0.6 oz pure alcoho l) Sex Assigned at Date Recorded Female 01/14/2020 10:57 AM BULK PLANT OPERATOR documented as of this encounter Miscellaneous Notes Telephone Encounter - Breanna Coleman MD - 10/06/2014 5:34 PM CDT After discussion with the father of the , Stephani has decided that she will transfer care to [facility]. We will forward her records to [facility] and anticipate that they will bein touch with her to arrange for ultrasound, echo and to establish OB care in the next couple of days. Breanna Coleman MD Maternal- Medicine & Clinical Genetics October 06, 2014 documented in this encounter Plan of Treatment Upcoming Encounters Date Type Specialty Care Team Description 11/29/2021 Office Visit Wound Care Luis Camara, [place] [address] [place], [place] [phone] (Wo rk) 01/21/2022 Office Visit Gastroenterology Juanis Levi [address] [place] [address] Luis Fernando Miles MD [address] [address] documented as of this encounter Visit Diagnoses Not on filedocumented in this encounter Care Teams Vest Presser Relationship Specialty Start Date End Date System, Provider Not In PCP - General Clinic 08/12/14 07/13/16 documented as of this encounter
--- OUTSIDE RECORDS SUMMARY | 2021-11-28 13:53 | XMS_ITS | Encounter Summary ---
:1980 Author Organization [place] Address [address] [facility] [place] [address] Care Team Providers Name Role Phone System, Provider Not In Primary Care Provider Unavailable Reason for Visit Reason Onset Date Comments Ultrasound Comp US-heart defect Ultrasound echo-heart def ect Consult MFM-heart defect Erroneous encounter-disregard 08/25/2014 Encounter Details Date Type Department Care Team Description 08/24/2014 Office Visit [facility] Jared, Breanna Other kno wn or suspected abnormality, not elsewhere classified, affecting management of mother, antepartum condition or complication (Primary Dx); Maternal MD Julian ERRONEOUS ENCOUNTER--DISREGARD [facility] [address] [place], [place] [address] [address] [place], [place] [address] [phone] Social History Tobacco Use Types Packs/Day Years Used Date Smoking Tobacco: Every Day Cigarettes 0.1 10 Smokeless Tobacco: Never Comments: 5 cigarettes a day Alcohol Use Standard Drinks/Week Comments No 0 (1 standard drink = 0.6 oz pure alcoho l) Sex Assigned at Date Recorded Female 01/14/2020 10:57 AM BELT GLASS SANDER documented as of this encounter Progress Notes Winsome Allen RN - 08/25/2014 1:49 PM CDT This encounter was opened in error. Please disregard. documented in this encounter Plan of Treatment Upcoming Encounters Date Type Specialty Care Team Description 11/29/2021 Office Visit Wound Care Luis Camara DPM [address] [facility] [place] [address] (Wo rk) 01/21/2022 Office Visit Gastroenterology Juanis Levi [address] [place] [address] Luis Fernando Miles MD [address] [facility] [place] [address] documented as of this encounter Visit Diagnoses Diagnosis Other known or suspected abnormali ty, not elsewhere classified, affecting management of mother, antepartum conditi on or complication - Primary ERRONEOUS ENCOUNTER--DISREGARD documented in this encounter Care Teams Supervisor Waterworks Relationship Specialty Start Date End Date System, Provider Not In PCP - General Clinic 08/12/14 07/13/16 documented as of this encounter
--- OUTSIDE RECORDS SUMMARY | 2021-11-28 13:53 | XMS_ITS | Encounter Summary ---
:1980 Author Organization [place] Address [address] [place] [address] Care Team Providers Name Role Phone System, Provider Not In Primary Care Provider Unavailable Reason for Visit Reason Onset Date Comments Recheck Medication Erroneous encounter-disregard 04/28/2015 Encounter Details Date Type Department Care Team Description 04/24/2015 Office Visit [facility] Edgar Alfredo NO SHOW ( Primary Dx); Clinic Ashly Gauthier MD ERRONEOUS ENCOUNTER--DISREGARD [address] [place] [address] [place] [phone] Social History Tobacco Use Types Packs/Day Years Used Date Smoking Tobacco: Every Day Cigarettes 0.1 10 Smokeless Tobacco: Never Comments: 5 cigarettes a day Alcohol Use Standard Drinks/Week Comments No 0 (1 standard drink = 0.6 oz pure alcoho l) Sex Assigned at Date Recorded Female 01/14/2020 10:57 AM GOLD LEAF GILDER documented as of this encounter Progress Notes Edgar Alfredo MD - 04/28/2015 10:05 PM CST This encounter was opened in error. Please disregard. LEAF GILDER documented in this encounter Plan of Treatment Upcoming Encounters Date Type Specialty Care Team Description 11/29/2021 Office Visit Wound Care Luis Camara, [place] [address] [place], [place] [phone] (Wo rk) 01/21/2022 Office Visit Gastroenterology Juanis Levi [address] [place] [phone] Luis Fernando Miles MD 516 [facility] [address] [place], [place] [address] documented as of this encounter Visit Diagnoses Diagnosis NO SHOW - Primary ERRONEOUS ENCOUNTER--DISREGARD documented in this encounter Care Teams Fire Truck Driver Relationship Specialty Start Date End Date System, Provider Not In PCP - General Clinic 08/12/14 07/13/16 documented as of this encounter
--- OUTSIDE RECORDS SUMMARY | 2021-11-28 13:53 | XMS_ITS | Encounter Summary ---
:1980 Author Organization [place] Address [address] [facility] [address] Care Team Providers Name Role Phone System, Provider Not In Primary Care Provider Unavailable Reason for Visit Reason Comments Recheck Medication Encounter Details Date Type Department Care Team Description 10/13/2014 Office Visit [facility] Edgar Alfredoplic ated opioid dependence (H) (Primary Dx); Clinic Ashly Gauthier MD Opiate dependence (H) [address] [place] [address] [place] [phone] Social History Tobacco Use Types Packs/Day Years Used Date Smoking Tobacco: Every Day Cigarettes 0.1 10 Smokeless Tobacco: Never Comments: 5 cigarettes a day Alcohol Use Standard Drinks/Week Comments No 0 (1 standard drink = 0.6 oz pure alcoho l) Sex Assigned at Date Recorded Female 01/14/2020 10:57 AM SITECORE DEVELOPER documented as of this encounter Last [...] followup WILL BE SWITCHING OB COVERAGE TO [facility] WILL HAVE HEART SURGERY ON DAY [...] Take 1 tablet by mouth daily ??? Vjussvuf-Eoo-Zm-FA ( VITAMINS) 0.8 MG TABS Take 1 [...] [facility] andupdated as appropriate. ROS: Constitutional, HEENT, [...] in 1 MONTH Edgar Alfredo MD, MD [facility] documented in this [...] Office Visit Wound Care Luis Camara DPM [address] [place] [address] (Wo rk) 01/21/2022 Office Visit Gastroenterology Juanis Levi [address] [place] [phone] Luis Fernando Miles MD 6 [facility] [address] [place] [address] documented as of this encounter Procedures Procedure [...] Organization Address City/State/[place] [address] [facility] Building [address] [place] [address] [address] [facility] Drug abuse screen (NL, RW) (10/13/2014 [...] City/State/[facility] [place] [address] [facility] Building [address] [facility] documented in this encounter Visit Diagnoses Diagnosis Uncomplicated opioid dependence (H) - Pr imary Opioid type dependence, unspecified documented in this encounter Care Teams Manager Student Services Relationship Specialty Start Date End Date System, Provider Not In PCP - General Clinic 08/12/14 07/13/16 documented as of this encounter
--- OUTSIDE RECORDS SUMMARY | 2021-11-28 13:53 | XMS_ITS | Encounter Summary ---
:1980 Author Organization [place] Address [address] [facility] [place] [address] Care Team Providers Name Role Phone System, Provider Not In Primary Care Provider Unavailable Reason for Visit Reason Comments Recheck Medication Encounter Details Date Type Department Care Team Description 03/02/2015 Office Visit [facility] Edgar Alfredo Uncomplic ated opioid Clinic Ashly Gauthier MD dependence (H) (Primary [address] Dx) [address] [place] [address] [place] [phone] Social History Tobacco Use Types Packs/Day Years Used Date Smoking Tobacco: Every Day Cigarettes 0.1 10 Smokeless Tobacco: Never Comments: 5 cigarettes a day Alcohol Use Standard Drinks/Week Comments No 0 (1 standard drink = 0.6 oz pure alcoho l) Sex Assigned at Date Recorded Female 01/14/2020 10:57 AM DISPENSING OPTICIAN documented as of this encounter Last Filed Vital Signs Vital Sign Reading Time Taken Comments Blood Pressure 133/87 03/02/2015 3:15 PM DISPENSING OPTICIAN Pulse 86 03/02/2015 3:15 PM DISPENSING OPTICIAN Temperature - - Respiratory Rate - - [...] health issues: Suboxone followup Child discharged from [facility] now at home On subutex: her 2 [...] Take 1 tablet by mouth daily ??? Rbqqygxm-Kvh-An-FA ( VITAMINS) 0.8 MG TABS Take 1 tablet by mouth daily 30 tablet 6 ??? [DISCONTINUED] VITAMINS PO Take by mouth. ??? Cholecalciferol (VITAMIN D) 2000 UNITS tablet Take 2,000 Units by mouth daily. 100 tablet 3 No Known Allergies Problem list, Medication list, Allergies, and Medical/Social/Surgical histories reviewed in [facility] andupdated as appropriate. ROS: Constitutional, HEENT, cardiovascular, [...] NECESSARY Edgar Alfredo M.D. Edgar Alfredo MD [facility] ENSING OPTICIAN documented in this encounter Nursing Notes Suyapa [...] using cuff size: catalino Rodriguez MLT, CMA ENSING OPTICIAN documented in this encounter Plan of Treatment Upcoming Encounters Date Type Specialty Care Team Description 11/29/2021 Office Visit Wound Care Luis Camara DPM [address] [place] [address] (Wo rk) 01/21/2022 Office Visit Gastroenterology Juanis Levi [address] [place] [address] Luis Fernando Miles MD 6 [facility] [place] [address] documented as of this encounter Procedures Procedure Name Priority Date/Time Associated Diagnosis Comme nts BUPRENORPHINE QUAL Routine 03/02/2015 2:59 Uncomplicated opioi d Results for this URINE PM DISPENSING OPTICIAN dependence (H) procedure are in the results section. DRUG ABUSE SCREEN Routine 03/02/2015 2:59 Uncomplicated opioid Results for this (NL, RW) PM DISPENSING OPTICIAN dependence (H) procedure are in the results section. documented in this encounter Results Buprenorphine Qual Urine (03/02/2015 2:59 PM DISPENSING OPTICIAN) Patholo gist Method Time Signature Buprenorphine Positive LAB Qual Urine Specimen Anatomical Collection Method Collection Time Receive d Time (Source) Location / / Volume Laterality Urine specimen 03/02/2015 2:59 PM 016 3:05 (specimen) DISPENSING OPTICIAN PM DISPENSING OPTICIAN Edgar Alfredo MD LAB - URINE ORDERABLES Performing Organization Address City/State/[place] [address] [facility] Building [address] [facility] Drug abuse screen (NL, RW) (03/02/2015 2:59 PM DISPENSING OPTICIAN) Component Value Ref Test Analysis Performed Pathologis [...] specimen 03/02/2015 2:59 PM 016 3:05 (specimen) DISPENSING OPTICIAN PM DISPENSING OPTICIAN Edgar Alfredo MD LAB - URINE ORDERABLES Performing Organization Address City/State/ZIP Code Phon e Number [place], [place] [id number] [place] [address] [facility]IMARY [facility] Building [address] [facility] [address] LAB documented in this encounter Visit Diagnoses Diagnosis Uncomplicated opioid dependence (H) - Pr imary Opioid type dependence, unspecified documented in this encounter Care Teams Drafter Heating And Ventilating Relationship Specialty Start Date End Date System, Provider Not In PCP - General Clinic 08/12/14 07/13/16 documented as of this encounter
--- OUTSIDE RECORDS SUMMARY | 2021-11-28 13:53 | XMS_ITS | Encounter Summary ---
:1980 Author Organization [place] Address [address] [facility] [place] [address] Care Team Providers Name Role Phone System, Provider Not In Primary Care Provider Unavailable Encounter Details Date Type Department Care Team Description 08/24/2014 Hospital Encounter [facility] Breanna Coleman Pre gnancy, Maternal MD Julian Formerly [facility] [address] [place], [place] [address] [address] [place], [place] [phone] [address] (Work) [phone] Social History Tobacco Use Types Packs/Day Years Used Date Smoking Tobacco: Every Day Cigarettes 0.1 10 Smokeless Tobacco: Never Comments: 5 cigarettes a day Alcohol Use Standard Drinks/Week Comments No 0 (1 standard drink = 0.6 oz pure alcoho l) Sex Assigned at Date Recorded Female 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 documented as of this encounter Medications at [...] by 30 tablet 6 12/10/2012 08/30/19 17 Fcnsahjx-Dsn-Su-FA mouth daily ( VITAMINS) 0.8 MG TABSIndications: [...] Visit Wound Care Luis Camara DPM [address] [place], [place] [phone] (Wo rk) 01/21/2022 Office Visit Gastroenterology Juanis Levi [address] [place] [address] Luis Fernando Miles MD [address] [facility] [address] [place] [address] documented as of this encounter Procedures Procedure Name Priority Date/Time Associated Comments Diagnosis [facility] COMPREHENSIVE Routine 08/24/2014 11:29 , Res ults for this SINGLE AM CDT incidental procedure are i n the results section. 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 The remainder of anatomy was adequately visualized and appeared normal. Narrative 08/26/2014 3:51 PM CDT Comprehensive Pat. Name: STEPHANI MCCORMICK Study Date: 08/24 10:55am Pat. NO: [id number] Referring ??MD: KATY ROCHE Site: [facility] Net Washer: Carlos Gordon RDMS : 1980 Age: 35 [...] (HC-AC-FL) Head / Face / Neck Biometry: Csr ?7.9 ?mm ? Nasal bone ?7.2 ?mm [...] presence of a congenital heart defect is /. We discussed the availability of cell-free DNA [...] that delivery will need to be at [facility] where NICU and [...] this patient and /or family members. Approximate jrth-ob-ioqi time was 30 min utes. Procedure Note Breanna Coleman MD - 09/10/2016Format ting of this note might be different from the original. Comprehensive Pat. Name:Elizabeth MCCORMICK Date:08/25/19 15 10:55am Pat. NO: [id number] MD:YURIDIA ROCHE [facility] RD[facility] :1980Age:35 INDICATION Congenital Heart Defect. 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 METHOD Transabdominal ultrasound examination. G virginie dunbar. Nicole . Number of fetuses: 1. DATING [...] (HC-AC-FL) Head / Face / Neck Biometry: Csr 7.9 mm Nasal bone 7.2 mm Amniotic [...] that delivery will need to be at [facility] where NICU and [...] this patient and /or family members. Approximate ehuh-no-blch time was 30 min utes. IMPRESSION Single intrauterine at 24 1/7 weeks gestation by 11 week ultrasound. Sonographic biometry agrees with gestational age predicted by prior ultrasound. 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 The remainder of anatomy was adequately visualized and appeared normal. Breanna Coleman MD [facility] US ORDERABLES documented in this encounter Visit Diagnoses Diagnosis , incidental state, incidental documented in this encounter Care Teams Lens Mounter Relationship Specialty Start Date End Date System, Provider Not In PCP - General Clinic 08/12/14 07/13/16 documented as of this encounter
--- OUTSIDE RECORDS SUMMARY | 2021-11-28 13:53 | XMS_ITS | Encounter Summary ---
:1980 Author Organization [place] Address [address] [facility] [place] [address] Care Team Providers Name Role Phone System, Provider Not In Primary Care Provider Unavailable Reason for Visit Reason Onset Date Comments Care 10/06/2014 Encounter Details Date Type Department Care Team Description 10/06/2014 Telephone [facility] Maternal Breanna Worthington MD [facility] [address] [place] [address] [place], [place] [address] [phone] Social History Tobacco Use Types Packs/Day Years Used Date Smoking Tobacco: Every Day Cigarettes 0.1 10 Smokeless Tobacco: Never Comments: 5 cigarettes a day Alcohol Use Standard Drinks/Week Comments No 0 (1 standard drink = 0.6 oz pure alcoho l) Sex Assigned at Date Recorded Female 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 Called [...] delivery. The two closest options would be [facility] and [facility]. Patient is unsure which she will choose. [...] Visit Wound Care Luis Camara DPM [address] [place] [address] (Wo rk) 01/21/2022 Office Visit Gastroenterology Juanis Levi [address] [place] [address] Luis Fernando Miles MD [address] [facility] [address] [place], [place] [phone] documented as of this encounter Visit Diagnoses Not on filedocumented in this encounter Care Teams Aircraft Engine Cylinder Mechanic Relationship Specialty Start Date End Date System, Provider Not In PCP - General Clinic 08/12/14 07/13/16 documented as of this encounter
--- OUTSIDE RECORDS SUMMARY | 2021-11-28 13:53 | XMS_ITS | Encounter Summary ---
:1980 Author Organization [place] Address [address] [facility] [place] [address] Care Team Providers Name Role Phone System, Provider Not In Primary Care Provider Unavailable Reason for Visit Reason Onset Date Comments Medication Request 12/19/2014 medication bridge Encounter Details Date Type Department Care Team Description 12/19/2014 Telephone [facility] Edgar Alfredo, 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 She is requesting a call back. Nora Scott Team Director Of Recruiting ON OPENER Telephone Encounter - Shayy Boles - 12/19/2014 3:41 PM CST Incoming call from patient requesting a bridge for her subutex medication until her next apt on 12/26/14. Patient can be reached at [phone] with any questions Shayy Boles Team Director Of Recruiting ON OPENER documented in this encounter Plan of Treatment Upcoming Encounters Date Type Specialty Care Team Description 11/29/2021 Office Visit Wound Care Luis Camara DPM [address] [place] [address] (Wo rk) 01/21/2022 Office Visit Gastroenterology Juanis Levi [address] [place] [phone] Luis Fernando Miles MD 516 [facility] [address] [place], [place] [address] documented as of this encounter Visit Diagnoses Diagnosis Uncomplicated opioid dependence (H) - Pr imary Opioid type dependence, unspecified documented in this encounter Care Teams Cleaning Attendant Relationship Specialty Start Date End Date System, Provider Not In PCP - General Clinic 08/12/14 07/13/16 documented as of this encounter
--- OUTSIDE RECORDS SUMMARY | 2021-11-28 13:53 | XMS_ITS | Encounter Summary ---
:1980 Author Organization [place] Address [address] [facility] [place] [address] Care Team Providers Name Role Phone System, Provider Not In Primary Care Provider Unavailable Reason for Visit Reason Comments Recheck Medication Encounter Details Date Type Department Care Team Description 03/28/2015 Office Visit [facility] Edgar Alfredo Uncomplic ated opioid Clinic Ashly Gauthier MD dependence (H) (Primary [address]) [address] [place] [address] [place] [phone] Social History Tobacco Use Types Packs/Day Years Used Date Smoking Tobacco: Every Day Cigarettes 0.1 10 Smokeless Tobacco: Never Comments: 5 cigarettes a day Alcohol Use Standard Drinks/Week Comments No 0 (1 standard drink = 0.6 oz pure alcoho l) Sex Assigned at Date Recorded Female 01/14/2020 10:57 AM 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 Xrmyolag-Awb-Hd-FA ( VITAMINS) 0.8 MG TABS Take 1 tablet by mouth daily 30 tablet 6 ??? Cholecalciferol (VITAMIN D) 2000 UNITS tablet Take 2,000 Units by mouth daily. 100 tablet 3 ??? [DISCONTINUED] VITAMINS PO Take by mouth. No Known Allergies Problem list, Medication list, Allergies, and Medical/Social/Surgical histories reviewed in [facility] andupdated as appropriate. ROS: OBJECTIVE: BP 122/66 [...] visit in 1 MONTH Edgar Alfredo MD [facility] ANCES CONSULTANT documented in this encounter Nursing Notes Suyapa [...] cuff size: large Suyapa Rodriguez MLT, CMA ANCES CONSULTANT documented in this encounter Plan of Treatment Upcoming Encounters Date Type Specialty Care Team Description 11/29/2021 Office Visit Wound Care Luis Camara DPM [address] [place] [address] (Wo rk) 01/21/2022 Office Visit Gastroenterology Juanis Levi [address] [place] [address] Luis Fernando Miles MD [address] [facility] [address] [place] [address] documented as of this encounter Procedures Procedure Name Priority Date/Time Associated Comments Diagnosis BUPRENORPHINE QUAL Routine 03/28/2015 11:04 Resul ts for this URINE AM ALLIANCES CONSULTANT procedure are i n the results section. DRUG ABUSE SCREEN (NL, Routine 03/28/2015 11:04 R esults for this RW) AM ALLIANCES CONSULTANT procedure are i n the results section. documented in this encounter Results Buprenorphine Qual Urine (03/28/2015 11:04 AM ALLIANCES CONSULTANT) Patholo gist Method Time Signature Buprenorphine Negative [facility] LAB Qual Urine Specimen Anatomical Collection Method Collection Time Receive d Time (Source) Location / / Volume Laterality Urine specimen 03/28/2015 11:04 6 (specimen) AM ALLIANCES CONSULTANT 11:09 AM ALLIANCES CONSULTANT Edgar Alfredo MD LAB - URINE ORDERABLES Performing Organization Address City/State/[place] [address] [facility] [address] [facility] LAB Drug abuse screen (NL, RW) (03/28/2015 11:04 AM ALLIANCES CONSULTANT) Component Value Ref Test Analysis Performed Pathologis [...] Urine specimen 03/28/2015 11:04 6 (specimen) AM ALLIANCES CONSULTANT 11:09 AM ALLIANCES CONSULTANT Edgar Alfredo MD LAB - URINE ORDERABLES Performing Organization Address City/State/[place] [address] [facility] [address] [facility] [address] LAB documented in this encounter Visit Diagnoses Diagnosis Uncomplicated opioid dependence (H) - Pr imary Opioid type dependence, unspecified documented in this encounter Care Teams Expansion Joint Finisher Relationship Specialty Start Date End Date System, Provider Not In PCP - General Clinic 08/12/14 07/13/16 documented as of this encounter
--- OUTSIDE RECORDS SUMMARY | 2021-11-28 13:53 | XMS_ITS | Encounter Summary ---
:1980 Author Organization [place] Address [address] [facility] [place] [address] Care Team Providers Name Role Phone System, Provider Not In Primary Care Provider Unavailable Reason for Referral - Closed Specialty Diagnoses / Procedures Referred By Contact Refer red To Contact Diagnoses Unspecified complication of , antepartum Breanna Coleman MD [address] [place], [place] [address] Referral ID Status Reason Start Date Expiration Date Visits Requ ested Visits Authorized [id number] Closed 08/24/2014 08/24/2015 1 1 Reason for Visit Reason Comments Ultrasound Encounter Details Date Type Department Care Team Description 08/24/2014 Orders Only [facility] Breanna Coleman Unspecifi ed complication of , antepartum (Primary Dx); Maternal MD Julian Abnormal heart rate or rhythm Medicine Center [address] [place], [place] [address] [address] [place], [place] [address] [phone] Social History Tobacco Use Types Packs/Day Years Used Date Smoking Tobacco: Every Day Cigarettes 0.1 10 Smokeless Tobacco: Never Comments: 5 cigarettes a day Alcohol Use Standard Drinks/Week Comments No 0 (1 standard drink = 0.6 oz pure alcoho l) Sex Assigned at Date Recorded Female 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 Plan to deliver ar [facility], expecting a full term delivery. Obtain cardiology consult, transthoracic Echo after . Start PGE 1 immediatley at . Thank you for allowing me to participate in Stephani's care. Feel free to contact me with questions. Xicn-yp-owgk counseling time was [address] Janeen Ruiz Process Worker Director, Cardiology [facility] documented in this encounter Plan of Treatment Upcoming Encounters Date Type Specialty Care Team Description 11/29/2021 Office Visit Wound Care Luis Camara DPM [address] [place] [address] (Wo rk) 01/21/2022 Office Visit Gastroenterology Juanis Levi [address] [place] [address] Luis Fernando Miles MD 6 [facility] [address] [place] [address] Scheduled Referrals Name Type Priority Associated Diagnoses Order S erendira [facility] Genetic Counseling Referral Routine Unspecified 1 Occ urrences starting complication of 08/24/2014 u ntil , antepartum 2015 documented as of this encounter Visit Diagnoses Diagnosis Unspecified complication of , a ntepartum - Primary Abnormal heart rate or rhythm Abnormality in heart rate or rhyth m, unspecified as to time of onset documented in this encounter Care Teams Ore Crushing Dust Collector Relationship Specialty Start Date End Date System, Provider Not In PCP - General Clinic 08/12/14 07/13/16 documented as of this encounter
--- OUTSIDE RECORDS SUMMARY | 2021-11-28 13:53 | XMS_ITS | Encounter Summary ---
:1980 Author Organization [place] Address [address] [facility] [place] [address] Care Team Providers Name Role Phone System, Provider Not In Primary Care Provider Unavailable Reason for Visit Reason Comments Recheck Medication Encounter Details Date Type Department Care Team Description 12/26/2014 Office Visit [facility] Edgar Alfredoplic ated opioid Clinic Ashly Gauthier MD dependence (H) (Primary [address] Dx) [address] [place] [phone] Social History Tobacco Use Types Packs/Day Years Used Date Smoking Tobacco: Every Day Cigarettes 0.1 10 Smokeless Tobacco: Never Comments: 5 cigarettes a day Alcohol Use Standard Drinks/Week Comments No 0 (1 standard drink = 0.6 oz pure alcoho l) Sex Assigned at Date Recorded Female 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 Degiwmni-Kvt-Uj-FA ( VITAMINS) 0.8 MG TABS Take 1 [...] and Medical/Social/Surgical histories reviewed in [facility] andupdated as appropriate. ROS: OBJECTIVE: BP 124/73 [...] in 1 MONTH Edgar Alfredo MD, MD [facility] PICKER documented in this encounter Nursing Notes Suyapa [...] using cuff size: catalino Rodriguez MLT, CMA PICKER documented in this encounter Plan of Treatment Upcoming Encounters Date Type Specialty Care Team Description 11/29/2021 Office Visit Wound Care Luis Camara DPM [address] [place], [place] [address] (Wo rk) 01/21/2022 Office Visit Gastroenterology Juanis Levi [address] [place] [phone] Luis Fernando Miles MD 6 [facility] [address] [place] [address] documented as of this encounter Procedures Procedure Name Priority Date/Time Associated Diagnosis Comme nts BUPRENORPHINE QUAL Routine 12/26/2014 11:11 Uncomplicated opio id Results for this URINE AM FERN PICKER dependence (H) procedure are in the results section. DRUG ABUSE SCREEN Routine 12/26/2014 11:11 Uncomplicated opioi d Results for this (NL, RW) AM FERN PICKER dependence (H) procedure are in the results section. documented in this encounter Results Buprenorphine Qual Urine (12/26/2014 11:11 AM FERN PICKER) Patholo gist Method Time Signature Buprenorphine Negative [facility] LAB Qual Urine Specimen Anatomical Collection Method Collection Time Receive d Time (Source) Location / / Volume Laterality Urine specimen 12/26/2014 11:11 5 (specimen) AM FERN PICKER 11:16 AM FERN PICKER Edgar Alfredo MD LAB - URINE ORDERABLES Performing Organization Address City/State/[place] [address] [facility] Building [address] [facility] LAB Drug abuse screen (NL, RW) (12/26/2014 11:11 AM FERN PICKER) Component Value Ref Test Analysis Performed Pathologis [...] Urine specimen 12/26/2014 11:11 5 (specimen) AM FERN PICKER 11:16 AM FERN PICKER Edgar Alfredo MD LAB - URINE ORDERABLES Performing Organization Address City/State/[place] [address] [facility] [address] [address] [facility] LAB documented in this encounter Visit Diagnoses Diagnosis Uncomplicated opioid dependence (H) - Pr imary Opioid type dependence, unspecified documented in this encounter Care Teams Project Architect Relationship Specialty Start Date End Date System, Provider Not In PCP - General Clinic 08/12/14 07/13/16 documented as of this encounter
--- OUTSIDE RECORDS SUMMARY | 2021-11-28 13:53 | XMS_ITS | Encounter Summary ---
:1980 Author Organization [place] Address [address] [facility] [place] [address] Care Team Providers Name Role Phone System, Provider Not In Primary Care Provider Unavailable Reason for Visit - Closed Specialty Diagnoses / Procedures Referred By Contact Refer red To Contact Diagnoses Unspecified complication of , antepartum Breanna Coleman MD [address] [place] [address] Referral ID Status Reason Start Date Expiration Date Visits Requ ested Visits Authorized [id number] Closed 08/24/2014 08/24/2015 1 1 Encounter Details Date Type Department Care Team Description 08/24/2014 Office Visit [facility] Breanna Coleman MD [address] [place] [address] Unspecified Maternal Goldie Edwards GC [address] [place] [address] complication of Medicine Center , a ntepartum Dora [address] [place], [place] [address] Social History Tobacco Use Types Packs/Day Years Used Date Smoking Tobacco: Every Day Cigarettes 0.1 10 Smokeless Tobacco: Never Comments: 5 cigarettes a day Alcohol Use Standard Drinks/Week Comments No 0 (1 standard drink = 0.6 oz pure alcoho l) Sex Assigned at Date Recorded Female 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/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 documented as of this encounter Progress [...] Time spent: 10 min Goldie Edwards MS, [facility] Certified Genetic Counselor [phone] documented in this encounter Plan of Treatment Upcoming Encounters Date Type Specialty Care Team Description 11/29/2021 Office Visit Wound Care Luis Camara DPM [address] [place], [place] [address] (Wo rk) 01/21/2022 Office Visit Gastroenterology Juanis Levi [address] [place] [address] Luis Fernando Miles MD 516 [facility] [address] [place], [place] [address] documented as of this encounter Visit Diagnoses Diagnosis Unspecified complication of , a ntepartum documented in this encounter Care Teams Acquisition Cost Estimator Relationship Specialty Start Date End Date System, Provider Not In PCP - General Clinic 08/12/14 07/13/16 documented as of this encounter
--- OUTSIDE RECORDS SUMMARY | 2021-11-28 13:53 | XMS_ITS | Encounter Summary ---
:1980 Author Organization [place] Address [facility] [place] [address] Care Team Providers Name Role Phone System, Provider Not In Primary Care Provider Unavailable Reason for Visit (Routine) - Closed Specialty Diagnoses / Procedures Referred By Contact Refer red To Contact Perinatology / Diagnoses * ID INS Zz Ur Peds Echo Lab Cardiology Procedures [facility] COMPLETE* [address] [place] [address] Referral ID Status Reason Start Date Expiration Date Visits Requ ested Visits Authorized [id number] Closed 08/24/2014 08/24/2015 1 1 Encounter Details Date Type Department Care Team Description 08/24/2014 Hospital Encounter [facility] Echo/EKG Breanna Coleman MD [address] [place] [address] , 2450 [facility] [place]rm[place]mus[place] [address] Social History Tobacco Use Types Packs/Day Years Used Date Smoking Tobacco: Every Day Cigarettes 0.1 10 Smokeless Tobacco: Never Comments: 5 cigarettes a day Alcohol Use Standard Drinks/Week Comments No 0 (1 standard drink = 0.6 oz pure alcoho l) Sex Assigned at Date Recorded Female 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 Gestational Age: 24 weeks Due Date: 11/18 ?? : Delivery Site: [facility] ??Tech: [email or web address] Diagnosis: Heart defect ? CONCLUSION: [...] ?? The plan is to deliver at [facility]. ??Expecting a full term delivery and [...] the systemic pulmonary venous connections. Ezra Rodríguez MD-[phone] ? Kyung Sheets MD-Pager [phone] Carlton Olivera MD-Pager ??[phone] or [phone] ? Blane Seay MD-Pager [phone] ? Carina Ruiz MD-Pager [phone] Tk Spain MD-Pager # [phone] Loretta Roberts MD Pager [phone] Brice Lloyd MD-Pager [phone] Breanna Coleman MD CV PEDS ECHO ORDERABLES documented in this encounter Visit Diagnoses Diagnosis , incidental state, incidental documented in this encounter Care Teams Facility Maintenance Mechanic Relationship Specialty Start Date End Date System, Provider Not In PCP - General Clinic 08/12/14 07/13/16 documented as of this encounter
--- OUTSIDE RECORDS SUMMARY | 2021-11-28 13:53 | XMS_ITS | Encounter Summary ---
:1980 Author Organization [place] Address [address] [facility] [place] [address] Care Team Providers Name Role Phone System, Provider Not In Primary Care Provider Unavailable Reason for Visit Reason Onset Date Comments Other 01/17/2015 appointment request Encounter Details Date Type Department Care Team Description 01/17/[address] 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 01/19 @ 10:30a T ENGINEERING SUPERVISOR Telephone Encounter - Edgar Alfredo MD - 01/17/2015 12:48 PM CST at 10:30 or Friday at 10:00 Should have enough medication until then T ENGINEERING SUPERVISOR Telephone Encounter - Shayy Boles - 01/17/2015 10:24 AM CST Incoming call from patient requesting to speak with provider about possibly being seen sometime thisweek. Patient states her son is in the hospital and she is wondering if can squeeze her in to be seen. She is also in need of a bridge of her medication for subutex. Patient can be reached at [phone] Shayy Boles Team Product Test Engineer T ENGINEERING SUPERVISOR documented in this encounter Plan of Treatment Upcoming Encounters Date Type Specialty Care Team Description 11/29/2021 Office Visit Wound Care Luis Camara DPM [address]09 [place], [place] [address] (Wo rk) 01/21/2022 Office Visit Gastroenterology Juanis Levi 2450 [place] [address] Luis Fernando Miles MD [address] [id number] documented as of this encounter Visit Diagnoses Not on filedocumented in this encounter Care Teams Marble Polisher Relationship Specialty Start Date End Date System, Provider Not In PCP - General Clinic 08/12/14 07/13/16 documented as of this encounter
--- OUTSIDE RECORDS SUMMARY | 2021-11-28 13:53 | XMS_ITS | Encounter Summary ---
:1980 Author Organization [place] Address [address] [facility] [place] [address] Care Team Providers Name Role Phone System, Provider Not In Primary Care Provider Unavailable Reason for Visit Reason Comments Recheck Medication Encounter Details Date Type Department Care Team Description 08/25/2014 Office Visit [facility] dEgar Alfredoplic ated opioid dependence (H) (Primary Dx); Clinic Ashly Gauthier MD Opiate dependence (H) [address] [place] [address] [place] [address] Social History Tobacco Use Types Packs/Day Years Used Date Smoking Tobacco: Every Day Cigarettes 0.1 10 Smokeless Tobacco: Never Comments: 5 cigarettes a day Alcohol Use Standard Drinks/Week Comments No 0 (1 standard drink = 0.6 oz pure alcoho l) Sex Assigned at Date Recorded Female 01/14/2020 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 Beawnyhl-Zgs-Mv-FA ( VITAMINS) 0.8 MG TABS Take 1 [...] list, Allergies, and Medical/Social/Surgical histories reviewed in [facility] [place] andupdated as appropriate. ROS: Constitutional, HEENT, cardiovascular, [...] in 1 MONTH Edgar Alfredo MD, MD [facility] [...] Visit Wound Care Luis Camara DPM 909 [place], [place] [phone] (Wo rk) 01/21/2022 Office Visit Gastroenterology Juanis Levi 24[address] [place] [address] Luis Fernando Miles MD 516 [facility] 2A [place], [place] [address] documented as of this encounter Procedures Procedure [...] Buprenorphine Qual Urine (08/25/2014 3:54 PM CDT) Patholo gist Method Time Signature Buprenorphine Positive [facility] LAB Qual Urine Specimen Anatomical Collection Method Collection Time Receive d Time (Source) Location / / Volume Laterality Urine specimen 08/25/2014 3:54 PM 015 3:59 (specimen) CDT PM CDT Edgar Alfredo MD LAB - URINE ORDERABLES Performing Organization Address City/State/[place] [address] [facility] Building [address] [...] LAB - URINE ORDERABLES Performing Organization Address City/State/[facility] [place] [address] [facility] Building [address] LAB documented in this encounter Visit Diagnoses Diagnosis Uncomplicated opioid dependence (H) - Pr imary Opioid type dependence, unspecified documented in this encounter Care Teams Stock Puller Relationship Specialty Start Date End Date System, Provider Not In PCP - General Clinic 08/12/14 07/13/16 documented as of this encounter
--- OUTSIDE RECORDS SUMMARY | 2021-11-28 13:54 | XMS_ITS | Encounter Summary ---
:1980 Author Organization [place] Address [address] [facility] [place] [address] Care Team Providers Name Role Phone Edgar Alfredo MD Primary Care Provider Reason for Visit Reason Comments Recheck Medication Encounter Details Date Type Department Care Team Description 11/09/2013 Office Visit [facility] Edgar Alfredo de pendence (H) Clinic Ashly Gauthier MD [address] [place] [address] [place] [address] Social History Tobacco Use Types Packs/Day Years Used Date Smoking Tobacco: Every Day Cigarettes 0.1 10 Smokeless Tobacco: Never Comments: 5 cigarettes a day Alcohol Use Standard Drinks/Week Comments No 0 (1 standard drink = 0.6 oz pure alcoho l) Sex Assigned at Date Recorded Female 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/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 documented as of this encounter Last Filed [...] Office Visit Wound Care Luis Camara, [place] [address] [place] [phone] (Wo rk) 01/21/2022 Office Visit Gastroenterology AmitaJuanis Camryn [address] [place] [address] Luis Fernando Miles MD 516 [facility] [address] [place], [place] [address] documented as of this encounter Procedures Procedure [...] Organization Address City/State/[place] [address] [facility] Building [address] [facility] LAB Drug abuse screen (NL, RW) (11/09/2013 [...] Organization Address City/State/[place] [address] [facility] Building [address] [facility] LAB documented in this encounter Visit Diagnoses Diagnosis Opiate dependence (H) Opioid type dependence, unspecified documented in this encounter Care Teams Child & Adolescent Psychiatrist Relationship Specialty Start Date End Date Edgar Alfredo MD PCP - General Family Practice 04/13/12 08/11/[address] [place] [address] documented as of this encounter
--- OUTSIDE RECORDS SUMMARY | 2021-11-28 13:54 | XMS_ITS | Encounter Summary ---
:1980 Author Organization [place] Address [address] [facility] [place] [address] Care Team Providers Name Role Phone Edgar Alfredo MD Primary Care Provider Reason for Visit Reason Onset Date Comments Call To Schedule Appointment 08/18/2013 Encounter Details Date Type Department Care Team Description 08/18/2013 Telephone [facility] Edgar Alfredo Cal l To Schedule Clinic Ashly VÁSQUEZ Appointment [address] [place] [phone] (Wo rk) Social History Tobacco Use Types Packs/Day Years Used Date Smoking Tobacco: Every Day Cigarettes 0.1 10 Smokeless Tobacco: Never Comments: 5 cigarettes a day Alcohol Use Standard Drinks/Week Comments No 0 (1 standard drink = 0.6 oz pure alcoho l) Sex Assigned at Date Recorded Female 01/14/2020 10:57 AM RN [facility] documented as of this encounter Miscellaneous Notes [...] Visit Wound Care Luis Camara DPM [address] [place], [place] [phone] (Wo rk) 01/21/2022 Office Visit Gastroenterology Juanis Levi [address] [place] [address] Luis Fernando Miles MD 516 [facility] [place], [place] [address] documented as of this encounter Visit Diagnoses Not on filedocumented in this encounter Care Teams Medical Physics Researcher Relationship Specialty Start Date End Date Edgar Alfredo MD PCP - General Family Practice 04/13/12 08/11/14 [address] [facility] [address] [place] [address] documented as of this encounter
--- OUTSIDE RECORDS SUMMARY | 2021-11-28 13:54 | XMS_ITS | Encounter Summary ---
:1980 Author Organization [place] Address [address] [facility] [address] Care Team Providers Name Role Phone Edgar Alfredo MD Primary Care Provider Reason for Visit Reason Comments Recheck Medication Encounter Details Date Type Department Care Team Description 05/05/[address] 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 Building [address] [facility] LAB documented in this encounter Visit Diagnoses Diagnosis Opiate dependence (H) Opioid type dependence, unspecified documented in this encounter Care Teams Analytical Sciences Director Relationship Specialty Start Date End Date Edgar Alfredo MD PCP - General Family Practice 04/13/12 08/11/[address] [place] [address] documented as of this encounter
--- OUTSIDE RECORDS SUMMARY | 2021-11-28 13:54 | XMS_ITS | Encounter Summary ---
:1980 Author Organization [place] Address [address] [facility] [place] [address] Care Team Providers Name Role Phone Edgar Alfredo MD Primary Care Provider Reason for Visit Reason Comments Recheck Medication Encounter Details Date Type Department Care Team Description 07/21/[address] 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 [address] [facility] LAB documented in this encounter Visit Diagnoses Diagnosis Uncomplicated opioid dependence (H) - Pr imary Opioid type dependence, unspecified documented in this encounter Care Teams Boot Lace Cutter Machine Relationship Specialty Start Date End Date Edgar Alfredo MD PCP - General Family Practice 04/13/12 08/11/[address] [place] [address] documented as of this encounter
--- OUTSIDE RECORDS SUMMARY | 2021-11-28 13:54 | XMS_ITS | Encounter Summary ---
:1980 Author Organization [place] Address [address] [place] [address] Care Team Providers Name Role Phone Edgar Alfredo MD Primary Care Provider Reason for Visit Reason Onset Date Comments Refill Request 09/07/2013 Encounter Details Date Type Department Care Team Description 09/06/[address] 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 documented as of this encounter Miscellaneous [...] Visit Wound Care Luis Camara DPM 909 [facility] [place] [address] (Wo rk) 01/21/2022 Office Visit Gastroenterology Juanis Levi 2450 [place] [address] Luis Fernando Miles MD 516 [facility] 2[address] [place], [place] [address] documented as of this encounter Visit Diagnoses Not on filedocumented in this encounter Care Teams Snow Plow Operator Relationship Specialty Start Date End Date Edgar Alfredo MD PCP - General Family Practice 04/13/12 08/11/14 [address] [facility] 700 [place] [address] documented as of this encounter
--- OUTSIDE RECORDS SUMMARY | 2021-11-28 13:54 | XMS_ITS | Encounter Summary ---
:1980 Author Organization [place] Address [address] [facility] [place] [address] Care Team Providers Name Role Phone Edgar Alfredo MD Primary Care Provider Reason for Visit Reason Onset Date Comments Refill Request 09/07/2013 Please refax Subutex script Encounter Details Date Type Department Care Team Description 09/07/2013 Telephone [facility] Edgar Alfredo, Ref ill Request (Please [facility] [place] refax Subutex script) [address] [place] [address] (Wo rk) Social History Tobacco Use Types Packs/Day Years Used Date Smoking Tobacco: Every Day Cigarettes 0.1 10 Smokeless Tobacco: Never Comments: 5 cigarettes a day Alcohol Use Standard Drinks/Week Comments No 0 (1 standard drink = 0.6 oz pure alcoho l) Sex Assigned at Date Recorded Female 01/14/2020 10:57 AM SOCIAL WORK INSTRUCTOR documented as of this encounter Miscellaneous Notes [...] Visit Wound Care Luis Camara DPM 909 [place] [address] (Wo rk) 01/21/2022 Office Visit Gastroenterology Juanis Levi [address] [place] [address] Luis Fernando Miles MD 516 [facility] 2A [place], [place] [address] documented as of this encounter Visit Diagnoses Not on filedocumented in this encounter Care Teams Tool Crib Lead Relationship Specialty Start Date End Date Edgar Alfredo MD PCP - General Family Practice 04/13/12 08/11/14 [address] [facility] [address] [place] [address] documented as of this encounter
--- OUTSIDE RECORDS SUMMARY | 2021-11-28 13:54 | XMS_ITS | Encounter Summary ---
:1980 Author Organization [place] Address [address] [facility] [place] [address] Care Team Providers Name Role Phone Edgar Alfredo MD Primary Care Provider Reason for Visit Reason Comments Recheck Medication Encounter Details Date Type Department Care Team Description 12/23/2013 Office Visit [facility] Edgar Alfredo de pendence (H) Clinic Ashly Gauthier MD [address] [place] [address] [place] [address] Social History Tobacco Use Types Packs/Day Years Used Date Smoking Tobacco: Every Day Cigarettes 0.1 10 Smokeless Tobacco: Never Comments: 5 cigarettes a day Alcohol Use Standard Drinks/Week Comments No 0 (1 standard drink = 0.6 oz pure alcoho l) Sex Assigned at Date Recorded Female 01/14/2020 10:57 AM GRANT SPECIALIST documented as of this encounter Last Filed Vital Signs Vital Sign Reading Time Taken Comments Blood Pressure 133/84 12/23/2013 4:56 PM GRANT SPECIALIST Pulse 99 12/23/2013 4:56 PM GRANT SPECIALIST Temperature - - Respiratory Rate - - [...] relapse, and establishing a solid recovery program. T SPECIALIST documented in this encounter Nursing Notes Suyapa [...] cuff size: large Suyapa Rodriguez MLT, CMA T SPECIALIST documented in this encounter Plan of Treatment Upcoming Encounters Date Type Specialty Care Team Description 11/29/2021 Office Visit Wound Care Luis Camara DPM 909 [place] [address] (Wo rk) 01/21/2022 Office Visit Gastroenterology Juanis Levi 2450 [place] [address] Luis Fernando Miles MD 6 [facility] 2[facility] [place] [address] documented as of this encounter Procedures Procedure Name Priority Date/Time Associated Comments Diagnosis BUPRENORPHINE QUAL Routine 12/23/2013 4:56 PM Opiate dependenc e Results for this URINE GRANT SPECIALIST (H) procedure are i n the results section. DRUG ABUSE SCREEN (NL, Routine 12/23/2013 4:56 PM Opiate depen dence Results for this RW) GRANT SPECIALIST (H) procedure are i n the results section. documented in this encounter Results Buprenorphine Qual Urine (12/23/2013 4:56 PM GRANT SPECIALIST) Patholo gist Method Time Signature Buprenorphine Negative [facility]J LAB Qual Urine Specimen Anatomical Collection Method Collection Time Receive d Time (Source) Location / / Volume Laterality Urine specimen 12/23/2013 4:56 PM 014 5:01 (specimen) GRANT SPECIALIST PM GRANT SPECIALIST Edgar Alfredo MD LAB - URINE ORDERABLES Performing Organization Address City/State/[place] [address] [facility] Building [address] [place] [address] [address] [facility] LAB Drug abuse screen (NL, RW) (12/23/2013 4:56 PM GRANT SPECIALIST) Component Value Ref Test Analysis Performed Pathologis [...] specimen 12/23/2013 4:56 PM 014 5:01 (specimen) GRANT SPECIALIST PM GRANT SPECIALIST Edgar Alfredo MD LAB - URINE ORDERABLES Performing Organization Address City/State/[place] [address] [facility] [address] [facility]J LAB documented in this encounter Visit Diagnoses Diagnosis Opiate dependence (H) Opioid type dependence, unspecified documented in this encounter Care Teams Underground Utility Locator Relationship Specialty Start Date End Date Edgar Alfredo MD PCP - General Family Practice 04/13/12 08/11/[address] [place] [address] documented as of this encounter
--- OUTSIDE RECORDS SUMMARY | 2021-11-28 13:54 | XMS_ITS | Encounter Summary ---
:1980 Author Organization [place] Address [facility] [place] [address] Care Team Providers Name Role Phone Edgar Alfredo MD Primary Care Provider System, Provider Not In Primary Care Provider Unavailable [facility], [facility] Primary Care Provide r Luis Fernando Magana Primary Care Provider [facility] Primary Care Provide r Tatyana Haas SHOE PATTERNMAKER HEALTH PSYCHOLOGIST Unavailable [phone] Stephani Pina SHOE PATTERNMAKER HEALTH PSYCHOLOGIST Unavailable [phone] Tatyana Haas SHOE PATTERNMAKER HEALTH PSYCHOLOGIST Unavailable [phone] Stehpani Pina SHOE PATTERNMAKER HEALTH PSYCHOLOGIST Unavailable [phone] Juanis Levi Primary Care Provider lEsa Yeh RN Unavailable Unavailable Rogelio Treadwell MD Unavailable [phone] Luis CamaraM Unavailable [phone] Camryn Christina MD Unavailable Sintia Lange PA-C Unavailable Luis Fernando Miles MD Unavailable [phone] Reason for Visit Reason Onset Date Comments Call To Schedule Appointment 08/26/2013 Encounter Details Date Type Department Care Team Description 08/26/2013 Telephone [facility] Edgar Mcclain Cal l To Schedule Clinic Ashly VÁSQUEZ Appointment [address] [place] [address] [place] [address] (Wo rk) Social History Tobacco Use Types Packs/Day Years Used Date Smoking Tobacco: Every Day Cigarettes 0.1 10 Smokeless Tobacco: Never Comments: 5 cigarettes a day Alcohol Use Standard Drinks/Week Comments No 0 (1 standard drink = 0.6 oz pure alcoho l) Sex Assigned at Date Recorded Female 01/14/2020 10:57 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 Alfredo. Please call patient to schedule. Thank you. documented in this encounter Plan of Treatment Upcoming Encounters Date Type Specialty Care Team Description 11/29/2021 Office Visit Wound Care Luis Camara DPM 909 [place] [address] (Wo rk) 01/21/2022 Office Visit Gastroenterology Juanis Levi [address] [place] [address] Luis Fernando Miles MD 516 [facility] [place], [place] [address] documented as of this encounter Visit Diagnoses Not on filedocumented in this encounter Additional Health Concerns Infection Onset Date Last Indicated Resolved Time MRSAComment: Added from external infection. 11/07/201406/18 documented as of this encounter Care Teams Senior Market Intelligence Consultant Relationship Specialty Start Date End Date Edgar Alfredo, PCP - General Family Practice 04/13/1208/[address] [place] [address] 700 [place] [address] System, Provider Not PCP - General Clinic 08/12/14 7 In [facility], [facility] PCP - General 07/14/[address] [address] Luis Fernando Magana PCP - General Family Practice 12/07/16 01/19/[address] [address] [facility], [facility] PCP - General 01/20/[address] [address] Juanis Levi PCP - General Addiction Medicine 06/29/[address] [place] [phone] Tatyana Haas, Assigned PCP 08/02/18 01/29/20 SHOE PATTERNMAKER HEALTH PSYCHOLOGIST [facility] [address] [facility] [address] [place] [address] Stephani Pina, Assigned PCP 01/30/20 12/30/20 SHOE PATTERNMAKER HEALTH PSYCHOLOGIST [address] [place] [address] 700 [place] [address] Tatyana Haas, Assigned PCP 12/31/20 02/24/21 SHOE PATTERNMAKER HEALTH PSYCHOLOGIST [facility] [address] [facility] [address] [place] [address] Stephani Pina, Assigned PCP 02/25/21 SHOE PATTERNMAKER HEALTH PSYCHOLOGIST [address] [place], [place] [address] Elsa Yeh, Registered Nurse Infectious Diseases 07/25/21 Rogelio Wilson Assigned Musculoskeletal 08/04/21 MD August Provider 909 [place], [place] [address] Luis Camara MD Podiatry 08/16/21 CALVIN Burnett [address] [place], [place] [phone] Camryn Christina Assigned Surgical 09/01/21 09/07/21 MD Lexie Provider 420 [facility] 195 [place], [place] [phone] Sintia Lange PA-C Assigned Surgical 09/08/21 909 [facility] 4TH Provider FLOOR [place], [place] [phone] Landon Warren MD Gastroenterology 11/21/21 MD Luis Fernando 516 [facility] [address] [place], [place] [phone] documented as of this encounter
--- OUTSIDE RECORDS SUMMARY | 2021-11-28 13:54 | XMS_ITS | Encounter Summary ---
:1980 Author Organization [place] Address [address] [facility] [place] [address] Care Team Providers Name Role Phone Edgar Alfredo MD Primary Care Provider Reason for Visit Reason Comments Recheck Medication Encounter Details Date Type Department Care Team Description 07/28/[address] [facility] Edgar Alfredo Uncomplic ated opioid dependence (H) (Primary Dx); Clinic Ashly Gauthier MD Opiate dependence (H) [address] [place] [address] Social History Tobacco Use Types Packs/Day Years Used Date Smoking Tobacco: Every Day Cigarettes 0.1 10 Smokeless Tobacco: Never Comments: 5 cigarettes a day Alcohol Use Standard Drinks/Week Comments No 0 (1 standard drink = 0.6 oz pure alcoho l) Sex Assigned at Date Recorded Female 01/14/2020 10:57 AM GAMBLING MONITOR documented as of this encounter Last Filed [...] Body Mass Index 30.97 01/07/2013 11:29 AM GAMBLING MONITOR documented in this encounter Progress Notes Edgar [...] Recovery program has been: ignored. GOES TO [facility] BUT WOULD BENEFIT FROM A MORE ACTIVE [...] recovery meetings:not at all. BUT HAS A JEW ?? Problem list and histories reviewed & [...] Take 1 tablet by mouth daily ??? Xsnuills-Hvp-Qw-FA ( VITAMINS) 0.8 MG TABS Take 1 [...] list, Allergies, and Medical/Social/Surgical histories reviewed [facility] andupdated as appropriate. ROS: Constitutional, HEENT, [...] in 1 month Edgar Alfredo MD, MD [facility] documented in this encounter [...] Visit Wound Care Luis Camara DPM [address] [place] [address] (Wo rk) 01/21/2022 Office Visit Gastroenterology Juanis Levi [address] [place] [address] Luis Fernando Miles MD [address] [facility] [address] [place], [place] [address] documented as of this encounter Procedures Procedure [...] Organization Address City/State/[place] [address] [facility] Building [address] [address] [place] [facility] Drug abuse [...] Organization Address City/State/[place] [address] [facility] [address] [place] [facility] documented in this encounter Visit Diagnoses Diagnosis Uncomplicated opioid dependence (H) - Pr imary Opioid type dependence, unspecified documented in this encounter Care Teams Photostat Operator Helper Relationship Specialty Start Date End Date Edgar Alfredo MD PCP - General Family Practice 04/13/12 08/11/[address] [place] [address] documented as of this encounter
--- OUTSIDE RECORDS SUMMARY | 2021-11-28 13:54 | XMS_ITS | Encounter Summary ---
:1980 Author Organization [place] Address [address] [facility] [place] [address] Care Team Providers Name Role Phone Edgar Alfredo MD Primary Care Provider Reason for Visit Reason Comments Recheck Medication Encounter Details Date Type Department Care Team Description 02/15/2014 Office Visit [facility] Edgar Alfredo de pendence (H) Clinic sAhly Gauthier MD [address] [place] [address] Social History Tobacco Use Types Packs/Day Years Used Date Smoking Tobacco: Every Day Cigarettes 0.1 10 Smokeless Tobacco: Never Comments: 5 cigarettes a day Alcohol Use Standard Drinks/Week Comments No 0 (1 standard drink = 0.6 oz pure alcoho l) Sex Assigned at Date Recorded Female 01/14/2020 10:57 AM 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 Since last visit patient has been: stable. LITTLE HAS CHANGED QUIET SAHLI NO QUESTIONS THIS MONTH DOES NOT WANT [...] relapse, and establishing a solid recovery program. AND HUMANITIES COUNCIL DIRECTOR documented in this encounter Nursing Notes Suyapa [...] cuff size: large Suyapa Rodriguez MLT, CMA AND HUMANITIES COUNCIL DIRECTOR documented in this encounter Plan of Treatment Upcoming Encounters Date Type Specialty Care Team Description 11/29/2021 Office Visit Wound Care Luis Camara DPM [address] [place] [address] (Wo rk) 01/21/2022 Office Visit Gastroenterology Juanis Levi [address] [place] [address] Luis Fernando Miles MD [address] [facility] [address] [place] [address] documented as of this encounter Procedures Procedure Name Priority Date/Time Associated Comments Diagnosis BUPRENORPHINE QUAL Routine 02/15/2014 11:22 Opiate dependence Results for this URINE AM ARTS AND HUMANITIES COUNCIL DIRECTOR (H) procedure are i n the results section. DRUG ABUSE SCREEN (NL, Routine 02/15/2014 11:22 Opiate depende nce Results for this RW) AM ARTS AND HUMANITIES COUNCIL DIRECTOR (H) procedure are i n the results section. documented in this encounter Results Buprenorphine Qual Urine (02/15/2014 11:22 AM ARTS AND HUMANITIES COUNCIL DIRECTOR) Patholo gist Method Time Signature Buprenorphine Positive [facility] Qual Urine Specimen Anatomical Collection Method Collection Time Receive d Time (Source) Location / / Volume Laterality Urine specimen 02/15/2014 11:22 4 (specimen) AM ARTS AND HUMANITIES COUNCIL DIRECTOR 11:27 AM ARTS AND HUMANITIES COUNCIL DIRECTOR Edgar Alfredo MD LAB - URINE ORDERABLES Performing Organization Address City/State/[place] [address] [facility] Building [address] [facility] Drug abuse screen (NL, RW) (02/15/2014 11:22 AM ARTS AND HUMANITIES COUNCIL DIRECTOR) Component Value Ref Test Analysis Performed Pathologis [...] Urine specimen 02/15/2014 11:22 4 (specimen) AM ARTS AND HUMANITIES COUNCIL DIRECTOR 11:27 AM ARTS AND HUMANITIES COUNCIL DIRECTOR Edgar Alfredo MD LAB - URINE ORDERABLES Performing Organization Address City/State/[place] [address] [facility] Building [address] [facility] documented in this encounter Visit Diagnoses Diagnosis Opiate dependence (H) Opioid type dependence, unspecified documented in this encounter Care Teams Ribbon Winder Relationship Specialty Start Date End Date Edgar Alfredo MD PCP - General Family Practice 04/13/12 08/11/[address] [place] [address] documented as of this encounter
--- OUTSIDE RECORDS SUMMARY | 2021-11-28 13:54 | XMS_ITS | Encounter Summary ---
:1980 Author Organization [place] Address [address] [place] [place] [address] Care Team Providers Name Role Phone System, Provider Not In Primary Care Provider Unavailable Reason for Referral - Closed Specialty Diagnoses / Procedures Referred By Contact Refer red To Contact Diagnoses Other known or suspected abnormality, not elsewhere classified, affecting management of mother, antepartum condition or complication Sintia Rasheed RN Referral ID Status Reason Start Date Expiration Date Visits Requ ested Visits Authorized [id number] Closed 08/12/2014 02/08/2015 1 1 Encounter Details Date Type Department Care Team Description 08/12/2014 Orders Only [facility] Sintia Rasheed , incidental Maternal GENARO Ghotra (Primary Dx) [facility] [address] [place], [place] [address] Social History Tobacco Use Types Packs/Day Years Used Date Smoking Tobacco: Every Day Cigarettes 0.1 10 Smokeless Tobacco: Never Comments: 5 cigarettes a day Alcohol Use Standard Drinks/Week Comments No 0 (1 standard drink = 0.6 oz pure alcoho l) Sex Assigned at Date Recorded Female 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 documented as of this encounter Plan of Treatment Upcoming Encounters Date Type Specialty Care Team Description 11/29/2021 Office Visit Wound Care Luis Camara DPM [address] [place], [place] [address] (Wo rk) 01/21/2022 Office Visit Gastroenterology Juanis Levi [address] [place] [address] Luis Fernando Miles MD [address] [place], [place] [address] Scheduled Referrals Name Type Priority Associated Diagnoses Order S chedule [facility] Office Visit Referral Routine , incidental We ekly for 1 Occurrences starting 2014 until 08/13/2015 documented as of this encounter Results [facility] US Comprehensive Single (08/24/2014 11:29 AM [...] a complex congenital heart defect which fe [facility] echocardiogram 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 The remainder of anatomy was adequately visualized and appeared normal. Narrative 08/26/2014 3:51 PM CDT Comprehensive Pat. Name: STEPHANI MCCORMICK Study Date: 08/24 10:55am Pat. NO: [id number] Referring ??: KATY ROCHE Site: [facility] Tapper Helper: Carlos Gordon RDMS : 1980 Age: 35 INDICATION Congenital Heart Defect. HISTORY General History ? 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 + hepatitis C ? hypothyroidism ? history of opiate use. METHOD Transabdominal ultrasound examination. Nithya dunbar. Nicole . Number of fetuses: 1. [...] ? 57.9 ?mm ? 23w 5d ? Flora LEDEZMA ? 79.2 ?mm ? 24w 0d ? [...] (HC-AC-FL) Head / Face / Neck Biometry: Biztalk Developer ?7.9 ?mm ? Nasal bone ?7.2 ?mm [...] testing at this point but requested info ation about these tests today and will consider having screening or testing at a future visit. We discussed that delivery will need to be at [facility] where NICU and Pediatric Cardiology as [...] this patient and /or family members. Approximate tdyj-sl-ykpz time was 30 min utes. Procedure Note Breanna Coleman MD - 09/10/2016Format ting of this note might be different from the original. Comprehensive Pat. Name:Elizabeth MCCORMICK Date:08/25/19 10:55am Pat. NO: [id number] MD:YURIDIA ROCHE [facility]Carlos Gordon RDMS :1980Age:35 INDICATION Congenital Heart Defect. [...] 11 w + 0 d, by per Trimester U/S 24 w + 1 d [...] 5.6 mm Humerus 38.6 mm 23w 5d [facility] Weight Calculation: EFW 589 g 31% 23w 0d Gildardo EFW (lb,oz) 1 lb 5 oz Calculated by Flora (HC-AC-FL) Head / Face / Neck Biometry: Biztalk Developer 7.9 mm Nasal bone 7.2 mm Amniotic [...] that delivery will need to be at [facility] where NICU and Pediatric Cardiology as [...] this patient and /or family members. Approximate kdzn-bh-gsts time was 30 min utes. IMPRESSION Single intrauterine at 24 1/7 weeks gestation by 11 week ultrasound. Sonographic biometry agrees with gestational age predicted by prior ultrasound. 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 The remainder of anatomy was adequately visualized and appeared normal. Breanna Coleman MD [facility] US ORDERABLES Echo Complete-Peds Cardiology (08/24/2014 10:16 AM CDT) Anatomical Region Laterality Modality Ultrasound Specimen (Source) Anatomical Location Collection Method / Collectio n Time Received Time / Laterality Volume Narrative 08/25/2014 1:37 PM CDT PEDIATRIC ECHOCARDIOGRAM [facility]? s [facility] ? Gestational Age: 24 weeks Due Date: 11/18 ?? : Delivery Site: [facility] ??Tech: [email or web address] Diagnosis: Heart defect [...] ?? The plan is to deliver at [facility]. ??Expecting a full term delivery and [...] the systemic pulmonary venous connections. Ezra Rodríguez MD-[phone] ? Kyung Sheets MD-Pager [phone] Carlton Olivera MD-Pager ??[phone] or [phone] ? Blane Seay MD-Pager [phone] ? Carina Ruiz MD-Pager [phone] Tk Spain MD-Pager # [phone] Loretta Roberts MD Pager [phone] Brice Lloyd MD-Pager [phone] Breanna Coleman MD CV PEDS ECHO ORDERABLES documented in this encounter Visit Diagnoses Diagnosis , incidental - Primary state, incidental , incidental state, incidental , incidental state, incidental documented in this encounter Care Teams Corporate Ethics Officer Relationship Specialty Start Date End Date System, Provider Not In PCP - General Clinic 08/12/14 07/13/16 documented as of this encounter
--- OUTSIDE RECORDS SUMMARY | 2021-11-28 13:54 | XMS_ITS | Encounter Summary ---
:1980 Author Organization [place] Address [address] [facility] [place] [address] Care Team Providers Name Role Phone Edgar Alfredo MD Primary Care Provider Reason for Visit Reason Onset Date Comments Medication Request 11/15/2013 subutex Encounter Details Date Type Department Care Team Description 11/15/2013 Telephone [facility] Edgar Alfredo, [facility] ication Request Clinic Ashly VÁSQUEZ (subutex) [address] [place] [address] (Wo rk) Social History Tobacco Use Types Packs/Day Years Used Date Smoking Tobacco: Every Day Cigarettes 0.1 10 Smokeless Tobacco: Never Comments: 5 cigarettes a day Alcohol Use Standard Drinks/Week Comments No 0 (1 standard drink = 0.6 oz pure alcoho l) Sex Assigned at Date Recorded Female 01/14/2020 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 Call back # [phone]. Suyapa Rodriguez, BRADLY, DON documented in this encounter Plan of Treatment Upcoming Encounters Date Type Specialty Care Team Description 11/29/2021 Office Visit Wound Care Luis Camara, [place] [address] [place] [address] (Wo rk) 01/21/2022 Office Visit Gastroenterology Juanis Levi [address] [place] [address] Luis Fernando Miles MD [address] [facility] [address] [place], [place] [address] documented as of this encounter Visit Diagnoses Diagnosis Opiate dependence (H) Opioid type dependence, unspecified documented in this encounter Care Teams Youth Minister Relationship Specialty Start Date End Date Edgar Alfredo MD PCP - General Family Practice 04/13/12 08/11/14 [address] [facility] [address] [place] [address] documented as of this encounter
--- OUTSIDE RECORDS SUMMARY | 2021-11-28 13:54 | XMS_ITS | Encounter Summary ---
:1980 Author Organization [place] Address [address] [facility] [place] [address] Care Team Providers Name Role Phone Edgar Alfredo MD Primary Care Provider Reason for Visit Reason Onset Date Comments Formulary Issue 06/08/2014 buprenorphine (SUBUT EX) 8 MG SUBL Encounter Details Date Type Department Care Team Description 06/08/2014 Telephone [facility] Edgar Alfredo, For mulary Issue Clinic Ashly VÁSQUEZ (buprenorphine [address] [place] (SUBUTEX) 8 MG SUBL) [address] [place] [phone] (Wo rk) Social History Tobacco Use Types Packs/Day Years Used Date Smoking Tobacco: Every Day Cigarettes 0.1 10 Smokeless Tobacco: Never Comments: 5 cigarettes a day Alcohol Use Standard Drinks/Week Comments No 0 (1 standard drink = 0.6 oz pure alcoho l) Sex Assigned at Date Recorded Female 01/14/2020 10:57 AM INSPECTOR 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 Telephone Encounter - Suyapa Rodriguez CMA - 06/08/2014 2:20 PM CDT was waiting for necessary info from patient or Dr. Alfredo. Pt called back. PA faxed to [facility]. Telephone Encounter - Vivian Spence CMA - 06/08/2014 2:08 PM CDT Incoming call from patient stating a PA is needed for buprenorphine (SUBUTEX) 8 MG SUBL Vivian Spence, [facility] Child Care Development Specialist documented in this encounter Plan of Treatment Upcoming Encounters Date Type Specialty Care Team Description 11/29/2021 Office Visit Wound Care Luis Camara, [place] [address] [place] [address] (Wo rk) 01/21/2022 Office Visit Gastroenterology Juanis Levi [address] [place] [address] Luis Fernando Miles MD [address] [facility] [address] [place] [address] documented as of this encounter Visit Diagnoses Not on filedocumented in this encounter Care Teams Manager Front Office Relationship Specialty Start Date End Date Edgar Alfredo MD PCP - General Family Practice 04/13/12 08/11/14 [address] [facility] [address] [place] [phone] documented as of this encounter
--- OUTSIDE RECORDS SUMMARY | 2021-11-28 13:54 | XMS_ITS | Encounter Summary ---
:1980 Author Organization [place] Address [address] [facility] [place] [address] Care Team Providers Name Role Phone Edgar Alfredo MD Primary Care Provider Reason for Visit Reason Onset Date Comments Recheck Medication Erroneous encounter-disregard 06/02/2014 Encounter Details Date Type Department Care Team Description 06/02/2014 Office Visit [facility] Edgar Alfredo ERRONEOUS Clinic Ashly Gauthier MD ENCOUNTER--DISREGARD [address] [place] (Primary Dx) [address] [place] [address] Social History Tobacco Use Types Packs/Day Years Used Date Smoking Tobacco: Every Day Cigarettes 0.1 10 Smokeless Tobacco: Never Comments: 5 cigarettes a day Alcohol Use Standard Drinks/Week Comments No 0 (1 standard drink = 0.6 oz pure alcoho l) Sex Assigned at Date Recorded Female 01/14/2020 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 Please disregard. documented in this encounter Plan of Treatment Upcoming Encounters Date Type Specialty Care Team Description 11/29/2021 Office Visit Wound Care Luis Camara, [place] [address] [place] [address] (Wo rk) 01/21/2022 Office Visit Gastroenterology Juanis Levi [address] [place] [address] Luis Fernando Miles MD [address] [facility] [address] [place] [address] documented as of this encounter Visit Diagnoses Diagnosis ERRONEOUS ENCOUNTER--DISREGARD - Primary documented in this encounter Care Teams Consumer Experience Consultant Relationship Specialty Start Date End Date Edgar Alfredo MD PCP - General Family Practice 04/13/12 08/11/14 [address] [facility] [address] [place] [address] documented as of this encounter
--- OUTSIDE RECORDS SUMMARY | 2021-11-28 13:54 | XMS_ITS | Encounter Summary ---
:1980 Author Organization [place] Address [address] [place] [address] Care Team Providers Name Role Phone Edgar Alfredo MD Primary Care Provider Reason for Visit Reason Onset Date Comments Refill Request 06/07/2014 Encounter Details Date Type Department Care Team Description 06/07/2014 Telephone [employer] Nithya Alfredo MD Refill Request [place] [address] [place], [place] [address] [address] [place] [phone] Social History Tobacco Use Types Packs/Day Years Used Date Smoking Tobacco: Every Day Cigarettes 0.1 10 Smokeless Tobacco: Never Comments: 5 cigarettes a day Alcohol Use Standard Drinks/Week Comments No 0 (1 standard drink = 0.6 oz pure alcoho l) Sex Assigned at Date Recorded Female 01/14/2020 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 Sayda lundberg called to Camacho, left on . Telephone Encounter - Suyapa Rodriguez CMA - 06/07/2014 2:38 PM CDT Patient thought appt last was actually today. Rescheduled for 06/23/14. Out of meds, needs bridge. Telephone Encounter - Vivian Spence CMA - 06/07/2014 2:20 PM CDT Pending Prescriptions: Disp Refills buprenorphine (SUBUTEX) 8 MG SUBL 45 tab*0 Sig: Take 1.5 tab daily Vivian Spence, [facility] Project Controls Scheduler documented in this encounter Plan of Treatment Upcoming Encounters Date Type Specialty Care Team Description 11/29/2021 Office Visit Wound Care Luis Camara DPM [address] [place], [place] [address] (Wo rk) 01/21/2022 Office Visit Gastroenterology Juanis Levi [address] [place] [phone] Luis Fernando Miles MD [address] [facility] [address] [place] [address] documented as of this encounter Visit Diagnoses Diagnosis Opiate dependence (H) - Primary Opioid type dependence, unspecified documented in this encounter Care Teams Advertising Columnist Relationship Specialty Start Date End Date Edgar Alfredo MD PCP - General Family Practice 04/13/12 08/11/[address] [place] [address] documented as of this encounter
--- OUTSIDE RECORDS SUMMARY | 2021-11-28 13:54 | XMS_ITS | Encounter Summary ---
:1980 Author Organization [place] Address [address] [place] [address] Care Team Providers Name Role Phone Edgar Alfredo MD Primary Care Provider Reason for Visit Reason Comments Recheck Medication Encounter Details Date Type Department Care Team Description 06/23/2014 Office Visit [facility] Edgar Alfredo Cocaine a buse, unspecified (Primary Dx); Clinic Ashly Gauthier MD Opiate dependence (H) [address] [place] [address] [place] [address] Social History Tobacco Use Types Packs/Day Years Used Date Smoking Tobacco: Every Day Cigarettes 0.1 10 Smokeless Tobacco: Never Comments: 5 cigarettes a day Alcohol Use Standard Drinks/Week Comments No 0 (1 standard drink = 0.6 oz pure alcoho l) Sex Assigned at Date Recorded Female 01/14/2020 10:57 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 Analysis performed by [employer], [facility] [place] [address] Specimen Anatomical Collection Method Collection Time Receive d Time (Source) Location / / Volume Laterality Urine specimen 06/23/2014 4:42 PM 015 4:47 (specimen) CDT PM CDT Edgar Alfredo MD LAB - URINE ORDERABLES Performing Organization Address City/State/[place] [address] [facility] Building [address] [facility] [address] LAB Buprenorphine Qual Urine (06/23/2014 2:35 PM CDT) [facility] gist Method Time Signature Buprenorphine Positive LAB Qual Urine Specimen Anatomical Collection Method Collection Time Receive d Time (Source) Location / / Volume Laterality Urine specimen 06/23/2014 2:35 PM 015 2:40 (specimen) CDT PM CDT Edgar Alfredo MD LAB - URINE ORDERABLES Performing Organization Address City/[facility]/[place] [address] [facility] Building [address] [...] LAB - URINE ORDERABLES Performing Organization Address City/[facility]/[place] [address] [facility] [address] [facility] [address] [place] documented in this encounter Visit Diagnoses Diagnosis Cocaine abuse, unspecified - Primary Opiate dependence (H) Opioid type dependence, unspecified documented in this encounter Care Teams Deposition Reporter Relationship Specialty Start Date End Date Edgar Alfredo MD PCP - General Family Practice 04/13/12 08/11/[address] [place] [address] [address] [place] [phone] documented as of this encounter
--- OUTSIDE RECORDS SUMMARY | 2021-11-28 13:54 | XMS_ITS | Encounter Summary ---
:1980 Author Organization [place] Address [address] [place] [address] Care Team Providers Name Role Phone Edgar [...] [address] [place] Appointment) [address] [place] [phone] (Wo rk) Social History Tobacco Use Types Packs/Day Years Used Date Smoking Tobacco: Every Day Cigarettes 0.1 10 Smokeless Tobacco: Never Comments: 5 cigarettes a day Alcohol Use Standard Drinks/Week Comments No 0 (1 standard drink = 0.6 oz pure alcoho l) Sex Assigned at Date Recorded Female 01/14/2020 10:57 AM MERCANTILE AGENT documented as of this encounter Miscellaneous Notes [...] Visit Wound Care Luis Camara, [place] [address] [place], [place] [phone] (Wo rk) 01/21/2022 Office Visit Gastroenterology Juanis Levi [address] [place] [address] Luis Fernando Miles MD 516 [facility] [address] [place] [address] documented as of this encounter Visit Diagnoses Not on filedocumented in this encounter Care Teams Department Store Salesperson Relationship Specialty Start Date End Date Edgar Alfredo MD PCP - General Family Practice 04/13/12 08/11/14 [address] [facility] S [facility] 700 [place] [address] documented as of this encounter
--- OUTSIDE RECORDS SUMMARY | 2021-11-28 13:54 | XMS_ITS | Encounter Summary ---
:1980 Author Organization [place] Address [address] [facility] [place] [address] Care Team Providers Name Role Phone Edgar Alfredo MD Primary Care Provider Reason for Visit Reason Comments Recheck Medication Encounter Details Date Type Department Care Team Description 01/18/2014 Office Visit [facility] Edgar Alfredo de pendence (H) Clinic Ashly Gauthier MD [address] [place] [phone] Social History Tobacco Use Types Packs/Day Years Used Date Smoking Tobacco: Every Day Cigarettes 0.1 10 Smokeless Tobacco: Never Comments: 5 cigarettes a day Alcohol Use Standard Drinks/Week Comments No 0 (1 standard drink = 0.6 oz pure alcoho l) Sex Assigned at Date Recorded Female 01/14/2020 10:57 AM NEEDLEWORKER documented as of this encounter Last Filed Vital Signs Vital Sign Reading Time Taken Comments Blood Pressure 117/82 01/18/2014 10:56 AM NEEDLEWORKER Pulse 90 01/18/2014 10:56 AM NEEDLEWORKER Temperature - - Respiratory Rate - - [...] relapse, and establishing a solid recovery program. LEWORKER documented in this encounter Nursing Notes Suyapa [...] cuff size: large Suyapa Rodriguez MLT, CMA LEWORKER documented in this encounter Plan of Treatment Upcoming Encounters Date Type Specialty Care Team Description 11/29/2021 Office Visit Wound Care Luis Camara DPM 909 [place] [address] (Wo rk) 01/21/2022 Office Visit Gastroenterology Juanis Levi 24[address] [place] [address] Luis Fernando Miles MD 6 [facility] [address] [place] [address] documented as of this encounter Procedures Procedure Name Priority Date/Time Associated Comments Diagnosis BUPRENORPHINE QUAL Routine 01/18/2014 10:48 Opiate dependence Results for this URINE AM NEEDLEWORKER (H) procedure are i n the results section. DRUG ABUSE SCREEN (NL, Routine 01/18/2014 10:48 Opiate depende nce Results for this RW) AM NEEDLEWORKER (H) procedure are i n the results section. documented in this encounter Results Buprenorphine Qual Urine (01/18/2014 10:48 AM NEEDLEWORKER) Patholo gist Method Time Signature Buprenorphine Positive [facility] Qual Urine Specimen Anatomical Collection Method Collection Time Receive d Time (Source) Location / / Volume Laterality Urine specimen 01/18/2014 10:48 4 (specimen) AM NEEDLEWORKER 10:53 AM NEEDLEWORKER Edgar Alfredo MD LAB - URINE ORDERABLES Performing Organization Address City/State/[place] [address] [facility] Building [address] [facility] (ABNORMAL) Drug abuse screen (NL, RW) (01/18/2014 10:48 AM NEEDLEWORKER) Component Value Ref Test Analysis Performed Pathologis [...] or less. PCP Qual Urine Positive NEG [facility] EFFEXOR Rx MAY CAUSE FALSE POSITIVE Cutoff for a positive PCP is greater than 25 ng/mL. This is an unconfirmed screening result to be used for medical purposes only. (A) Amphetamine Qual Negative NEG [facility] Urine Cutoff for a negative amphetamine is 1000 ng/mL or less. Oxycodone Qual Negative NEG [facility] Urine Cutoff for a negative Oxycodone is 100 ng/mL or less. Specimen Anatomical Collection Method Collection Time Receive d Time (Source) Location / / Volume Laterality Urine specimen 01/18/2014 10:48 4 (specimen) AM NEEDLEWORKER 10:53 AM NEEDLEWORKER Edgar Alfredo MD LAB - URINE ORDERABLES Performing Organization Address City/State/[place] [address] [facility] Building [address] [facility] documented in this encounter Visit Diagnoses Diagnosis Opiate dependence (H) Opioid type dependence, unspecified documented in this encounter Care Teams Cloud Physicist Relationship Specialty Start Date End Date Edgar Alfredo MD PCP - General Family Practice 04/13/12 08/11/[address] [place] [address] [place] [phone] documented as of this encounter
--- OUTSIDE RECORDS SUMMARY | 2021-11-28 13:54 | XMS_ITS | Encounter Summary ---
:1980 Author Organization [place] Address [address] [place] [address] Care Team Providers Name Role Phone Edgar Alfredo MD Primary Care Provider Reason for Visit Reason Onset Date Comments Refill Request 08/26/2013 Encounter Details Date Type Department Care Team Description 08/26/2013 Refill [facility] Nithya Alfredo MD Refill Request [place] [address] [place] [address] [place], [place] [address] [phone] [place] [phone] Social History Tobacco Use Types Packs/Day Years Used Date Smoking Tobacco: Every Day Cigarettes 0.1 10 Smokeless Tobacco: Never Comments: 5 cigarettes a day Alcohol Use Standard Drinks/Week Comments No 0 (1 standard drink = 0.6 oz pure alcoho l) Sex Assigned at Date Recorded Female 01/14/2020 10:57 AM PARK WORKER documented as of this encounter Miscellaneous Notes Telephone Encounter - Edgar Alfredo MD - 08/26/2013 5:34 PM CDT Should have enough until 09/01/13 6 day bridge ordered Telephone Encounter - Suyapa Rodriguez CMA - 08/26/2013 4:43 PM CDT Patient called, could not get a ride for appt today, rescheduled for 09/07, needs bridge. Suyapa Rodriguez CMA, DONOR SERVICES TECHNICIAN documented in this encounter Plan of Treatment Upcoming Encounters Date Type Specialty Care Team Description 11/29/2021 Office Visit Wound Care Luis Camara, [place] [address] [place], [place] [phone] (Wo rk) 01/21/2022 Office Visit Gastroenterology Juanis Levi [address] [place] [address] Luis Fernando Miles MD [address] [facility] [address] [place], [place] [phone] documented as of this encounter Visit Diagnoses Diagnosis Opiate dependence (H) Opioid type dependence, unspecified documented in this encounter Care Teams Tow Bar Driver Relationship Specialty Start Date End Date Edgar Alfredo MD PCP - General Family Practice 04/13/12 08/11/14 [address] [facility] 700 [place] [phone] documented as of this encounter
--- OUTSIDE RECORDS SUMMARY | 2021-11-28 13:54 | XMS_ITS | Encounter Summary ---
:1980 Author Organization [place] Address [address] [facility] [place] [address] Care Team Providers Name Role Phone Edgar Alfredo MD Primary Care Provider Reason for Visit Reason Onset Date Comments Recheck Medication Erroneous encounter-disregard 11/11/2013 Encounter Details Date Type Department Care Team Description 11/08/2013 Office Visit [facility] Edgar Alfredo ERRONEOUS Clinic Ashly Gauthier MD ENCOUNTER--DISREGARD [address] [place] (Primary Dx) [address] [place] [phone] Social History Tobacco Use Types Packs/Day Years Used Date Smoking Tobacco: Every Day Cigarettes 0.1 10 Smokeless Tobacco: Never Comments: 5 cigarettes a day Alcohol Use Standard Drinks/Week Comments No 0 (1 standard drink = 0.6 oz pure alcoho l) Sex Assigned at Date Recorded Female 01/14/2020 10:57 AM SUPERVISOR WEAVING documented as of this encounter Progress Notes Edgar Alfredo MD - 11/11/2013 5:16 PM CDT This encounter was opened in error. Please disregard. documented in this encounter Plan of Treatment Upcoming Encounters Date Type Specialty Care Team Description 11/29/2021 Office Visit Wound Care Luis Camara, [place] [address] [place] [address] (Wo rk) 01/21/2022 Office Visit Gastroenterology Juanis Levi [address] [place] [address] Luis Fernando Miles MD 516 [facility] [address] [place] [address] documented as of this encounter Visit Diagnoses Diagnosis ERRONEOUS ENCOUNTER--DISREGARD - Primary documented in this encounter Care Teams Director Of Elementary Education Relationship Specialty Start Date End Date Edgar Alfredo MD PCP - General Family Practice 04/13/12 08/11/14 [address] [facility] [address] [place] [address] documented as of this encounter
--- OUTSIDE RECORDS SUMMARY | 2021-11-28 13:54 | XMS_ITS | Encounter Summary ---
:1980 Author Organization [place] Address [address] [place] [address] Care Team Providers Name Role Phone Edgar Alfredo MD Primary Care Provider Encounter Details Date Type Department Care Team Description 06/29/2014 Telephone [facility] Nithya Alfredo MD [place] [address] [facility] [address] [place], [place] [phone] [place] [phone] Social History Tobacco Use Types Packs/Day Years Used Date Smoking Tobacco: Every Day Cigarettes 0.1 10 Smokeless Tobacco: Never Comments: 5 cigarettes a day Alcohol Use Standard Drinks/Week Comments No 0 (1 standard drink = 0.6 oz pure alcoho l) Sex Assigned at Date Recorded Female 01/14/2020 10:57 AM ELECTRICAL ASSEMBLIES SUPERVISOR documented as of this encounter Miscellaneous Notes Telephone Encounter - Edgar Alfreod MD - 06/29/2014 10:07 AM CDT Advised of positive cocaine in urine Still denies Advised she must explain how it got there next visit documented in this encounter Plan of Treatment Upcoming Encounters Date Type Specialty Care Team Description 11/29/2021 Office Visit Wound Care Luis Camara, [place] [address] [facility] [place], [place] [address] (Wo rk) 01/21/2022 Office Visit Gastroenterology Juanis Levi [address] [place] [phone] Luis Fernando Miles MD 516 [facility] [address] [place] [address] documented as of this encounter Visit Diagnoses Not on filedocumented in this encounter Care Teams Tassel Making Machine Operator Relationship Specialty Start Date End Date Edgar Alfredo MD PCP - General Family Practice 04/13/12 08/11/14 [address] [facility] 700 [place] [phone] documented as of this encounter
--- OUTSIDE RECORDS SUMMARY | 2021-11-28 13:54 | XMS_ITS | Encounter Summary ---
:1980 Author Organization [place] Address [address] [facility] [place] [address] Care Team Providers Name Role Phone Edgar Alfredo MD Primary Care Provider Reason for Visit Reason Comments Recheck Medication Encounter Details Date Type Department Care Team Description 09/30/2013 Office Visit [facility] Edgar Alfredo de pendence (H) Clinic Ashly Gauthier MD [address] [place] [address] [place] [phone] Social History Tobacco Use Types Packs/Day Years Used Date Smoking Tobacco: Every Day Cigarettes 0.1 10 Smokeless Tobacco: Never Comments: 5 cigarettes a day Alcohol Use Standard Drinks/Week Comments No 0 (1 standard drink = 0.6 oz pure alcoho l) Sex Assigned at Date Recorded Female 01/14/2020 10:57 AM SOFTWARE DEVELOPMENT LEADER documented as of this encounter Last Filed [...] Wound Care Luis Camara DPM [address] [place], [place] [address] (Wo rk) 01/21/2022 Office Visit Gastroenterology Juanis Levi [address] [place] [phone] Luis Fernando Miles MD 6 [facility] 2[address] [place] [address] documented as of this encounter Procedures Procedure [...] Organization Address City/State/[place] [address] [facility] Building [address] R[facility] LAB Drug abuse screen (NL, RW) (09/30/2013 [...] Organization Address City/State/[place] [address] [facility] Building [address] R[facility] LAB documented in this encounter Visit Diagnoses Diagnosis Opiate dependence (H) Opioid type dependence, unspecified documented in this encounter Care Teams Engineering Director Relationship Specialty Start Date End Date Edgar Alfredo MD PCP - General Family Practice 04/13/12 08/11/[address] [place] [address] [place] [address] documented as of this encounter
--- OUTSIDE RECORDS SUMMARY | 2021-11-28 13:54 | XMS_ITS | Encounter Summary ---
:1980 Author Organization [place] Address [address] [facility] [place] [address] Care Team Providers Name Role Phone Edgar Alfredo MD Primary Care Provider Reason for Visit Reason Comments Recheck Medication Encounter Details Date Type Department Care Team Description 03/15/2014 Office Visit [facility] Edgar Alfredo de pendence (H) Clinic Ashly Gauthier MD [address] [place] [address] [place] [phone] Social History Tobacco Use Types Packs/Day Years Used Date Smoking Tobacco: Every Day Cigarettes 0.1 10 Smokeless Tobacco: Never Comments: 5 cigarettes a day Alcohol Use Standard Drinks/Week Comments No 0 (1 standard drink = 0.6 oz pure alcoho l) Sex Assigned at Date Recorded Female 01/14/2020 10:57 AM BI DATA ARCHITECT documented as of this encounter Last Filed Vital Signs Vital Sign Reading Time Taken Comments Blood Pressure 110/63 03/15/2014 11:27 AM BI DATA ARCHITECT Pulse 94 03/15/2014 11:27 AM BI DATA ARCHITECT Temperature - - Respiratory Rate - - [...] relapse, and establishing a solid recovery program. DATA ARCHITECT documented in this encounter Nursing Notes Suyapa [...] cuff size: large Suyapa Rodriguez MLT, CMA DATA ARCHITECT documented in this encounter Plan of Treatment Upcoming Encounters Date Type Specialty Care Team Description 11/29/2021 Office Visit Wound Care Luis Camara DPM [address] [place], [place] [address] (Wo rk) 01/21/2022 Office Visit Gastroenterology Juanis Levi [address] [place] [phone] Luis Fernando Miles MD 516 [facility] [address] [place] [address] documented as of this encounter Procedures Procedure Name Priority Date/Time Associated Comments Diagnosis BUPRENORPHINE QUAL Routine 03/15/2014 11:17 Opiate dependence Results for this URINE AM BI DATA ARCHITECT (H) procedure are i n the results section. DRUG ABUSE SCREEN (NL, Routine 03/15/2014 11:17 Opiate depende nce Results for this RW) AM BI DATA ARCHITECT (H) procedure are i n the results section. documented in this encounter Results Buprenorphine Qual Urine (03/15/2014 11:17 AM BI DATA ARCHITECT) Patholo gist Method Time Signature Buprenorphine Positive [facility] Qual Urine Specimen Anatomical Collection Method Collection Time Receive d Time (Source) Location / / Volume Laterality Urine specimen 03/15/2014 11:17 5 (specimen) AM BI DATA ARCHITECT 11:22 AM BI DATA ARCHITECT Edgar Alfredo MD LAB - URINE ORDERABLES Performing Organization Address City/State/[place] [address] [facility] Building [address] [facility] Drug abuse screen (NL, RW) (03/15/2014 11:17 AM BI DATA ARCHITECT) Component Value Ref Test Analysis Performed Pathologis [...] Urine specimen 03/15/2014 11:17 5 (specimen) AM BI DATA ARCHITECT 11:22 AM BI DATA ARCHITECT Edgar Alfredo MD LAB - URINE ORDERABLES Performing Organization Address City/State/[place] [address] [facility] Building [address] R[facility] LAB documented in this encounter Visit Diagnoses Diagnosis Opiate dependence (H) Opioid type dependence, unspecified documented in this encounter Care Teams Director Decision Support Relationship Specialty Start Date End Date Edgar Alfredo MD PCP - General Family Practice 04/13/12 08/11/[address] [place] [address] [place] [address] documented as of this encounter
--- OUTSIDE RECORDS SUMMARY | 2021-11-28 13:54 | XMS_ITS | Encounter Summary ---
:1980 Author Organization [place] Address [address] [facility] [place] [address] Care Team Providers Name Role Phone Edgar Alfredo MD Primary Care Provider Reason for Visit Reason Comments Recheck Medication Encounter Details Date Type Department Care Team Description 11/22/2013 Office Visit [facility] Edgar Alfredo de pendence (H) Clinic Ashly Gauthier MD [address] [place] [address] [place] [phone] Social History Tobacco Use Types Packs/Day Years Used Date Smoking Tobacco: Every Day Cigarettes 0.1 10 Smokeless Tobacco: Never Comments: 5 cigarettes a day Alcohol Use Standard Drinks/Week Comments No 0 (1 standard drink = 0.6 oz pure alcoho l) Sex Assigned at Date Recorded Female 01/14/2020 10:57 AM IRONER SOCK documented as of this encounter Last Filed [...] TAKING MEDICATION PRESCRIBED VERY STRESSED LIFE WITH SOLDER MAKING LABORER There has been: moderate craving. Cues to [...] Visit Wound Care Luis Camara DPM [address] [place] [address] (Wo rk) 01/21/2022 Office Visit Gastroenterology Juanis Levi [address] [place] [phone] Luis Fernando Miles MD 6 [facility] [place] [address] documented as of this encounter Procedures Procedure [...] Organization Address City/State/[place] [address] [facility] Building [address] [place], [place] [address] [facility] (ABNORMAL) Drug [...] Organization Address City/State/[place] [address] [facility] Building [address] [facility] documented in this encounter Visit Diagnoses Diagnosis Opiate dependence (H) Opioid type dependence, unspecified documented in this encounter Care Teams Pockets And Pieces Necktie Operator Relationship Specialty Start Date End Date Edgar Alfredo MD PCP - General Family Practice 04/13/12 08/11/[address] [place] [address] [place] [phone] documented as of this encounter
--- OUTSIDE RECORDS SUMMARY | 2021-11-28 13:54 | XMS_ITS | Encounter Summary ---
:1980 Author Organization [place] Address [address] [place] [address] Care Team Providers Name Role Phone Edgar Alfredo MD Primary Care Provider Reason for Visit Reason Comments Recheck Medication Encounter Details Date Type Department Care Team Description 04/12/2014 Office Visit [facility] Edgar Alfredo de pendence (H) Clinic Ashly Gauthier MD [address] [place] [address] [place] [phone] Social History Tobacco Use Types Packs/Day Years Used Date Smoking Tobacco: Every Day Cigarettes 0.1 10 Smokeless Tobacco: Never Comments: 5 cigarettes a day Alcohol Use Standard Drinks/Week Comments No 0 (1 standard drink = 0.6 oz pure alcoho l) Sex Assigned at Date Recorded Female 01/14/2020 10:57 AM LOFT WORKER HEAD documented as of this encounter Last Filed Vital Signs Vital Sign Reading Time Taken Comments Blood Pressure 115/66 04/12/2014 11:18 AM LOFT WORKER HEAD Pulse 101 04/12/2014 11:18 AM LOFT WORKER HEAD Temperature - - Respiratory Rate - - Oxygen Saturation - - Inhaled Oxygen Concentration - - Weight - - Height - - Body Mass Index - - documented in this encounter Progress Notes Edgar Alfredo MD - 04/13/2014 1:37 PM CST Stephani [...] relapse, and establishing a solid recovery program. WORKER HEAD documented in this encounter Nursing Notes Suyapa [...] cuff size: large Suyapa Rodriguez MLT, CMA WORKER HEAD documented in this encounter Plan of Treatment Upcoming Encounters Date Type Specialty Care Team Description 11/29/2021 Office Visit Wound Care Luis Camara DPM 9[address] [place] [address] (Wo rk) 01/21/2022 Office Visit Gastroenterology Juanis Levi [address] [place] [address] Luis Fernando Miles MD 154 [facility] [address] [place] [address] documented as of this encounter Procedures Procedure Name Priority Date/Time Associated Comments Diagnosis BUPRENORPHINE QUAL Routine 04/12/2014 11:08 Opiate dependence Results for this URINE AM LOFT WORKER HEAD (H) procedure are i n the results section. DRUG ABUSE SCREEN (NL, Routine 04/12/2014 11:08 Opiate depende nce Results for this RW) AM LOFT WORKER HEAD (H) procedure are i n the results section. documented in this encounter Results Buprenorphine Qual Urine (04/12/2014 11:08 AM LOFT WORKER HEAD) Patholo gist Method Time Signature Buprenorphine Positive [facility] LAB Qual Urine Specimen Anatomical Collection Method Collection Time Receive d Time (Source) Location / / Volume Laterality Urine specimen 04/12/2014 11:08 5 (specimen) AM LOFT WORKER HEAD 11:13 AM LOFT WORKER HEAD Edgar Alfredo MD LAB - URINE ORDERABLES Performing Organization Address City/State/[facility] [place] [address] [facility] Building [address] [facility] LAB Drug abuse screen (NL, RW) (04/12/2014 11:08 AM LOFT WORKER HEAD) Component Value Ref Test Analysis Performed Pathologis [...] Urine specimen 04/12/2014 11:08 5 (specimen) AM LOFT WORKER HEAD 11:13 AM LOFT WORKER HEAD Edgar Alfredo MD LAB - URINE ORDERABLES Performing Organization Address City/State/[facility] [place] [address] [facility] Building [address] [facility] documented in this encounter Visit Diagnoses Diagnosis Opiate dependence (H) Opioid type dependence, unspecified documented in this encounter Care Teams Infection Prevention Coordinator Relationship Specialty Start Date End Date Edgar Alfredo MD PCP - General Family Practice 04/13/12 08/11/[address] [place] [address] [place] [phone] documented as of this encounter
--- OUTSIDE RECORDS SUMMARY | 2021-11-28 13:54 | XMS_ITS | Encounter Summary ---
:1980 Author Organization [place] Address [address] [facility] [place] [address] Care Team Providers Name Role Phone Edgar Alfredo MD Primary Care Provider Reason for Visit Reason Comments Recheck Medication Encounter Details Date Type Department Care Team Description 09/07/[address] [facility] Edgar Alfredo de pendence (H) Clinic Ashly Gauthier MD [address] [place] [address] Social History Tobacco Use Types Packs/Day Years Used Date Smoking Tobacco: Every Day Cigarettes 0.1 10 Smokeless Tobacco: Never Comments: 5 cigarettes a day Alcohol Use Standard Drinks/Week Comments No 0 (1 standard drink = 0.6 oz pure alcoho l) Sex Assigned at Date Recorded Female 01/14/2020 10:57 AM COMMERCIAL LINES ACCOUNT MANAGER documented as of this encounter Last [...] Visit Wound Care Luis Camara DPM [address]09 [place], [place] [address] (Wo rk) 01/21/2022 Office Visit Gastroenterology Juanis Levi 2450 [place] [phone] Luis Fernando Miles MD [address] [address] documented as of this encounter Procedures Procedure [...] Buprenorphine Qual Urine (09/07/2013 10:32 AM CDT) Patholo gist Method Time Signature Buprenorphine Positive [facility] LAB Qual Urine Specimen Anatomical Collection Method Collection Time Receive d Time (Source) Location / / Volume Laterality Urine specimen 09/07/2013 10:32 4 (specimen) AM CDT 10:33 AM CDT Edgar Alfredo MD LAB - URINE ORDERABLES Performing Organization Address City/[facility] Phon e Number [place], [place] [id number] [place] [address] PRIMARY CARE [facility] [address] [...] LAB - URINE ORDERABLES Performing Organization Address City/[facility] [place] [address] [facility] Building [address] RJ LAB documented in this encounter Visit Diagnoses Diagnosis Opiate dependence (H) Opioid type dependence, unspecified documented in this encounter Care Teams Administration Dean Relationship Specialty Start Date End Date Edgra Alfredo MD PCP - General Family Practice 04/13/12 08/11/[address] [place] [phone] documented as of this encounter
--- OUTSIDE RECORDS SUMMARY | 2021-11-28 13:55 | XMS_ITS | Encounter Summary ---
:1980 Author Organization [place] Address [address] [facility] [place] [address] Care Team Providers Name Role Phone Edgar Alfredo MD Primary Care Provider Reason for Visit Reason Onset Date Comments Recheck Medication Erroneous encounter-disregard 05/17/2013 Encounter Details Date Type Department Care Team Description 05/17/2013 Office Visit [facility] Edgar Alfredo de pendence (H) (Primary Dx); Clinic Ashly Gauthier MD ERRONEOUS ENCOUNTER--DISREGARD [address] [place] [phone] Social History Tobacco Use Types Packs/Day Years Used Date Smoking Tobacco: Every Day Cigarettes 0.1 10 Smokeless Tobacco: Never Comments: 5 cigarettes a day Alcohol Use Standard Drinks/Week Comments No 0 (1 standard drink = 0.6 oz pure alcoho l) Sex Assigned at Date Recorded Female 01/14/2020 10:57 AM RN ICU documented as of this encounter Progress Notes Edgar Alfredo MD - 05/17/2013 3:29 PM CDT This encounter was opened in error. Please disregard. documented in this encounter Plan of Treatment Upcoming Encounters Date Type Specialty Care Team Description 11/29/2021 Office Visit Wound Care Luis Camara DPM [address] [place], [place] [phone] (Wo rk) 01/21/2022 Office Visit Gastroenterology Juanis Levi [address] [place] [address] Luis Fernando Miles MD 516 [facility] [address] [place], [place] [address] documented as of this encounter Visit Diagnoses Diagnosis Opiate dependence (H) - Primary Opioid type dependence, unspecified ERRONEOUS ENCOUNTER--DISREGARD documented in this encounter Care Teams Tree Doctor Relationship Specialty Start Date End Date Edgar Alfredo MD PCP - General Family Practice 04/13/12 08/11/14 [address] [facility] [address] [place] [phone] documented as of this encounter
--- OUTSIDE RECORDS SUMMARY | 2021-11-28 13:55 | XMS_ITS | Encounter Summary ---
:1980 Author Organization [place] Address [address] [facility] [place] [address] Care Team Providers Name Role Phone Edgar Alfredo MD Primary Care Provider Reason for Visit Reason Onset Date Comments Medication Request 07/30/2013 suboxone Encounter Details Date Type Department Care Team Description 07/30/2013 Telephone [facility] Edgar Alfredo, [facility] ication Request Clinic Ashly VÁSQUEZ (suboxone) [address] [place] [address] (Wo rk) Social History Tobacco Use Types Packs/Day Years Used Date Smoking Tobacco: Every Day Cigarettes 0.1 10 Smokeless Tobacco: Never Comments: 5 cigarettes a day Alcohol Use Standard Drinks/Week Comments No 0 (1 standard drink = 0.6 oz pure alcoho l) Sex Assigned at Date Recorded Female 01/14/2020 10:57 AM 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 She can be reached at [phone]. Suyapa Rodriguez CMA, HATCHERY WORKER documented in this encounter Plan of Treatment Upcoming Encounters Date Type Specialty Care Team Description 11/29/2021 Office Visit Wound Care Luis Camara, [place] [address] [place], [place] [address] (Wo rk) 01/21/2022 Office Visit Gastroenterology Juanis Levi [address] [place] [address] Luis Fernando Miles MD 516 [facility] [address]A [place], [place] [address] documented as of this encounter Visit Diagnoses Not on filedocumented in this encounter Care Teams Distributor Sales Manager Relationship Specialty Start Date End Date Edgar Alfredo MD PCP - General Family Practice 04/13/12 08/11/[address] [place] [address] documented as of this encounter
--- OUTSIDE RECORDS SUMMARY | 2021-11-28 13:55 | XMS_ITS | Encounter Summary ---
:1980 Author Organization [place] Address [address] [facility] [place] [address] Care Team Providers Name Role Phone Edgar Alfredo MD Primary Care Provider Reason for Visit Reason Comments Recheck Medication Encounter Details Date Type Department Care Team Description 04/27/2013 Office Visit [facility] Edgar Alfredo Opiate de pendence (H) (Primary Dx); Clinic Ashly Gauthier MD Moderate major depression (H) [address] [place] [phone] Social History Tobacco Use Types Packs/Day Years Used Date Smoking Tobacco: Every Day Cigarettes 0.1 10 Smokeless Tobacco: Never Comments: 5 cigarettes a day Alcohol Use Standard Drinks/Week Comments No 0 (1 standard drink = 0.6 oz pure alcoho l) Sex Assigned at Date Recorded Female 01/14/2020 10:57 AM STORE DETECTIVE documented as of this encounter Last Filed [...] 11:30 AM CDT >> Suyapa Rodriguez CMA bronson Apr 27, 2013 12:11 PM Patient presents with: Recheck Medication Initial BP 119/73 Pulse 107 Estimated Body mass index is 25.06 kg/(m^2) as calculated from the following: Height as of 01/07/13: 5' 5.5(1.664 m). Weight as of 01/07/13: 153 lb(69.4 kg). BP completed using cuff size: large Suyapa Rodriguez CMA, OIL WELL DRILLER documented in this encounter Plan of Treatment Upcoming Encounters Date Type Specialty Care Team Description 11/29/2021 Office Visit Wound Care Luis Camara DPM [address] [place] [address] (Wo rk) 01/21/2022 Office Visit Gastroenterology Juanis Levi [address] [place] [address] Luis Fernando Miles MD [address] [place] [address] [address] [place] [address] documented as of this encounter Procedures Procedure [...] outs misc test (04/27/2013 11:57 AM CDT) Patholo gist Method Time Signature Test Name BUPRENORPHINE [facility] LAB Send Outs Urine RJ LAB Misc Test Specimen Result Positive RJ LAB Normal Range Negative RJ LAB for Send Outs Misc Test Specimen Anatomical Collection Method Collection Time Receive d Time (Source) Location / / Volume Laterality 04/27/2013 11:57 04/27/2013 AM CDT 12:45 PM CDT Edgar Alfredo MD LAB - BLOOD ORDERABLES Performing Organization Address City/[facility] [place] [address] [facility] PRIMARY CARE Building [address] LAB Drug abuse screen (NL, RW) (04/27/2013 11:52 AM CDT) [facility] gist Method Time Signature Methamphetamine Negative [...] LAB - URINE ORDERABLES Performing Organization Address City/[facility] [address] [facility] PRIMARY CARE Building [address] RJ LAB documented in this encounter Visit Diagnoses Diagnosis Opiate dependence (H) - Primary Opioid type dependence, unspecified Moderate major depression (H) Major depressive disorder, single episod e, moderate documented in this encounter Care Teams Agronomy Specialist Relationship Specialty Start Date End Date Edgar Alfredo MD PCP - General Family Practice 04/13/[address] [place] [address] documented as of this encounter
--- OUTSIDE RECORDS SUMMARY | 2021-11-28 13:55 | XMS_ITS | Encounter Summary ---
:1980 Author Organization [place] Address [address] [facility] [place] [address] Care Team Providers Name Role Phone Edgar Alfredo MD Primary Care Provider Encounter Details Date Type Department Care Team Description 05/28/2013 Medical Correspondence [facility] Edgar Alfredo MD Denial of Clinic Ashly Gauthier MD Buprenorphine [address]MG [address] 05/28/13 [address] [place] [address] [facility] [address] [place] [address] Social History Tobacco Use Types Packs/Day Years Used Date Smoking Tobacco: Every Day Cigarettes 0.1 10 Smokeless Tobacco: Never Comments: 5 cigarettes a day Alcohol Use Standard Drinks/Week Comments No 0 (1 standard drink = 0.6 oz pure alcoho l) Sex Assigned at Date Recorded Female 01/14/2020 10:57 AM DIGITAL STRATEGIST SENIOR MANAGER documented as of this encounter Plan of Treatment Upcoming Encounters Date Type Specialty Care Team Description 11/29/2021 Office Visit Wound Care Luis Camara DPM [address] [place], [place] [address] (Wo rk) 01/21/2022 Office Visit Gastroenterology Juanis Levi [address] [place] [address] Luis Fernando Miles MD 516 [facility] [place], [place] [address] documented as of this encounter Visit Diagnoses Not on filedocumented in this encounter Care Teams Controls Project Engineer Relationship Specialty Start Date End Date Edgar Alfredo MD PCP - General Family Practice 04/13/12 08/11/14 [address] [facility] [address] [facility] 700 [place] [address] documented as of this encounter
--- OUTSIDE RECORDS SUMMARY | 2021-11-28 13:55 | XMS_ITS | Encounter Summary ---
:1980 Author Organization [place] Address [facility] [place] [address] Care Team Providers Name Role Phone Edgra Alfredo MD Primary Care Provider System, Provider Not In Primary Care Provider Unavailable [facility] Primary Care Provide r Luis Fernando Magana Primary Care Provider [facility] Primary Care Provide r Tatyana Haas BIOFUELS PLANT SUPERINTENDENT SOFTWARE TEST MANAGER Unavailable [phone] Stephani Pina BIOFUELS PLANT SUPERINTENDENT SOFTWARE TEST MANAGER Unavailable [phone] Tatyana Haas BIOFUELS PLANT SUPERINTENDENT SOFTWARE TEST MANAGER Unavailable [phone] Stephani Pina BIOFUEL[employer] PLANT SUPERINTENDENT SOFTWARE TEST MANAGER Unavailable [phone] Juanis Levi Primary Care Provider Elsa Yeh RN Unavailable Unavailable Rogelio Treadwell MD Unavailable [phone] Luis CamaraM Unavailable [phone] Camryn Christina MD Unavailable Sintia Lange PA-C Unavailable Luis Fernando Miles MD Unavailable [phone] Reason for Visit Reason Onset Date Comments Erroneous encounter-disregard 04/27/2013 Encounter Details Date Type Department Care Team Description 04/27/2013 Telephone [facility] Edgar Alfredo, [facility] Ashly VÁSQUEZ encounter-disregard [address] [place] [place] [address] (Wo rk) Social History Tobacco Use Types Packs/Day Years Used Date Smoking Tobacco: Every Day Cigarettes 0.1 10 Smokeless Tobacco: Never Comments: 5 cigarettes a day Alcohol Use Standard Drinks/Week Comments No 0 (1 standard drink = 0.6 oz pure alcoho l) Sex Assigned at Date Recorded Female 01/14/2020 10:57 AM REGULATORY TECHNICIAN documented as of this encounter Plan of Treatment Upcoming Encounters Date Type Specialty Care Team Description 11/29/2021 Office Visit Wound Care Luis Camara DPM [address] [place], [place] [phone] (Wo rk) 01/21/2022 Office Visit Gastroenterology Juanis Levi 2450 [place] [phone] Luis Fernando Miles MD 516 [facility] [address]A [place], [place] [address] documented as of this encounter Visit Diagnoses Not on filedocumented in this encounter Additional Health Concerns Infection Onset Date Last Indicated Resolved Time MRSAComment: Added from external infection. 11/07/201406/18 documented as of this encounter Care Teams Manager Finance Relationship Specialty Start Date End Date Edgar Alfredo, PCP - General Family Practice 04/13/1208/[address] [place] [address] System, Provider Not PCP - General Clinic 08/12/14 7 In [facility], [facility] PCP - General 07/14/[address] [phone] Luis Fernando [place]ana PCP - General Family Practice 12/07/16 01/19/[address] [phone] Clinic, [facility] PCP - General 01/20/[address] [phone] Juanis Levi PCP - General Addiction Medicine 06/29/[address] [place] [phone] Tatyana Haas, Assigned PCP 08/02/18 01/29/20 BIOFUELS PLANT SUPERINTENDENT SOFTWARE TEST MANAGER [facility] [address] [facility] [address] [place], [place] [address] Stephani Pina, Assigned PCP 01/30/20 12/30/20 BIOFUELS PLANT SUPERINTENDENT SOFTWARE TEST MANAGER [address] [place], [place] [address] Tatyana Haas, Assigned PCP 12/31/20 02/24/21 BIOFUELS PLANT SUPERINTENDENT SOFTWARE TEST MANAGER [facility] [address] [facility] [address] [place], [place] [address] Stephani Pina, Assigned PCP 02/25/21 BIOFUELS PLANT SUPERINTENDENT SOFTWARE TEST MANAGER [address] [place], [place] [address] Elsa Yeh, Registered Nurse Infectious Diseases 07/25/21 RN Rogelio Treadwell Assigned Musculoskeletal 08/04/21 MD August Provider [address]09 [place] [address] Luis Camara MD Podiatry 08/16/21 [place] Burnett [address] [place] [address] Camryn Christina Assigned Surgical 09/01/21 09/07/21 MD Lexie Provider 420 [facility] 195 [place] [address] Sintia Lange PA-C Assigned Surgical 09/08/21 909 [facility] 4TH [place] [address] Landon Warren MD Gastroenterology 11/21/21 MD Luis Fernando 516 [facility] [address] [place] [address] documented as of this encounter
--- OUTSIDE RECORDS SUMMARY | 2021-11-28 13:55 | XMS_ITS | Encounter Summary ---
:1980 Author Organization [place] Address [address] [facility] [place] [address] Care Team Providers Name Role Phone Edgar Alfredo MD Primary Care Provider Reason for Visit Reason Comments Recheck Medication Encounter Details Date Type Department Care Team Description 07/08/2013 Office Visit [facility] Edgar Alfredo de pendence (H) Clinic Ashly Gauthier MD [address] [place] [address] [place] [address] Social History Tobacco Use Types Packs/Day Years Used Date Smoking Tobacco: Every Day Cigarettes 0.1 10 Smokeless Tobacco: Never Comments: 5 cigarettes a day Alcohol Use Standard Drinks/Week Comments No 0 (1 standard drink = 0.6 oz pure alcoho l) Sex Assigned at Date Recorded Female 01/14/2020 10:57 AM DIRECTOR OF PRIMARY CARE documented as of this encounter Progress Notes Edgar Alfredo MD - 07/08/2013 2:25 PM CDT Patient unable to make appointment due to housing meeting Will refill Drug screen neg Reduce dose next visit documented in this encounter Plan of Treatment Upcoming Encounters Date Type Specialty Care Team Description 11/29/2021 Office Visit Wound Care Luis Camara, [place] [address] [place] [address] (Wo rk) 01/21/2022 Office Visit Gastroenterology Juanis Levi 2450 [place] [phone] Luis Fernando Miles MD [address] [facility] 2A [place], [place] [address] documented as of this encounter Visit Diagnoses Diagnosis Opiate dependence (H) Opioid type dependence, unspecified documented in this encounter Care Teams Diversional Therapist'S Assistant Relationship Specialty Start Date End Date Edgar Alfredo MD PCP - General Family Practice 04/13/12 08/11/14 [address] [facility] [address] [place] [address] documented as of this encounter
--- OUTSIDE RECORDS SUMMARY | 2021-11-28 13:55 | XMS_ITS | Encounter Summary ---
:1980 Author Organization [place] Address [address] [facility] [place] [address] Care Team Providers Name Role Phone Edgar Alfredo MD Primary Care Provider Reason for Visit Reason Comments Recheck Medication Encounter Details Date Type Department Care Team Description 03/25/2013 Office Visit [facility] Edgar Alfredo pendence (H) Clinic Ashly Gauthier MD (Primary Dx) [address] [place] [address] [place] [address] Social History Tobacco Use Types Packs/Day Years Used Date Smoking Tobacco: Every Day Cigarettes 0.1 10 Smokeless Tobacco: Never Comments: 5 cigarettes a day Alcohol Use Standard Drinks/Week Comments No 0 (1 standard drink = 0.6 oz pure alcoho l) Sex Assigned at Date Recorded Female 01/14/2020 10:57 AM BUNDLE PERSON documented as of this encounter Last Filed Vital Signs Vital Sign Reading Time Taken Comments Blood Pressure 142/74 03/25/2013 3:07 PM BUNDLE PERSON Pulse 84 03/25/2013 3:07 PM BUNDLE PERSON Temperature - - Respiratory Rate - - [...] TOMORROW TO LEAVE URINE. TO SEE [facility]. LE PERSON documented in this encounter Nursing Notes 03/25/2013 3:00 PM CST >> SUYAPA MURRAY Zoe Mar 25, 2013 3:08 PM Patient presents with: Recheck Medication Initial BP 142/74 Pulse 84 Estimated Body mass index is 25.06 kg/(m^2) as calculated from the following: Height as of 01/07/13: 5' 5.5(1.664 m). Weight as of 01/07/13: 153 lb(69.4 kg). BP completed using cuff size: large Suyapa Murray, CLINIC CLERK, BLACKING WHEEL TENDER documented in this encounter Plan of Treatment Upcoming Encounters Date Type Specialty Care Team Description 11/29/2021 Office Visit Wound Care Luis Camara DPM [address] [place] [address] (Wo rk) 01/21/2022 Office Visit Gastroenterology Juanis Levi [address] [place] [address] Luis Fernando Miles MD 270 [facility] 2A [place] [address] documented as of this encounter Procedures Procedure Name Priority Date/Time Associated Diagnosis Comme nts SEND OUTS MISC TEST Routine 03/26/2013 3:45 PM Re sults for this BUNDLE PERSON procedure are i n the results section. DRUG ABUSE SCREEN Routine 03/25/2013 3:47 PM Opiate dependence Results for this (NL, RW) BUNDLE PERSON (H) procedure are i n the results section. documented in this encounter Results Send outs misc test (03/26/2013 3:45 PM BUNDLE PERSON) [facility] gist Method Time Signature Test Name BUPRENORPHINE RJ LAB Send Outs Urine RJ LAB Misc Test Specimen Result Negative RJ LAB Normal Range Negative RJ LAB for Send Outs Misc Test Specimen Anatomical Collection Method Collection Time Receive d Time (Source) Location / / Volume Laterality 03/26/2013 3:45 PM 4 3:53 BUNDLE PERSON PM BUNDLE PERSON Edgar Alfredo MD LAB - BLOOD ORDERABLES Performing Organization Address City/[facility] Phon e Number [address] PRIMARY CARE Building [address] RJ LAB Drug abuse screen (NL, RW) (03/25/2013 3:47 PM BUNDLE PERSON) [facility] Method Time Signature Methamphetamine Negative RJ LAB [...] specimen 03/25/2013 3:47 PM 014 3:52 (specimen) BUNDLE PERSON PM BUNDLE PERSON Edgar Alfredo MD LAB - URINE ORDERABLES Performing Organization Address City/[facility]/ZIP Code Phon e Number [place], [place] [id number] [place] [address] PRIMARY CARE Building [address] RJ LAB documented in this encounter Visit Diagnoses Diagnosis Opiate dependence (H) - Primary Opioid type dependence, unspecified documented in this encounter Care Teams [employer] Relationship Specialty Start Date End Date Edgar Alfredo MD PCP - General Family Practice 04/13/12 08/11/14 [address] [place] [phone] documented as of this encounter
--- OUTSIDE RECORDS SUMMARY | 2021-11-28 13:55 | XMS_ITS | Encounter Summary ---
:1980 Author Organization [place] Address [address] [facility] [place] [address] Care Team Providers Name Role Phone Edgar Alfredo MD Primary Care Provider Reason for Visit Reason Comments No Show Encounter Details Date Type Department Care Team Description 05/25/2013 Office Visit [facility] TONY [facility] ROSLYN [place] ENCOUNTER--DISREGARD [address] FRAN LANGE (Primary Dx) [address] [place], [place] [address] [place] [address] [place], [place] [phone] [address] (Wo rk) Social History Tobacco Use Types Packs/Day Years Used Date Smoking Tobacco: Every Day Cigarettes 0.1 10 Smokeless Tobacco: Never Comments: 5 cigarettes a day Alcohol Use Standard Drinks/Week Comments No 0 (1 standard drink = 0.6 oz pure alcoho l) Sex Assigned at Date Recorded Female 01/14/2020 10:57 AM PSYCHOLOGY LECTURER documented as of this encounter Progress Notes Tania Trevino CMA - 05/26/2013 10:39 AM CDT NO show documented in this encounter Plan of Treatment Upcoming Encounters Date Type Specialty Care Team Description 11/29/2021 Office Visit Wound Care Luis Camara DPM [address] [facility] [place], [place] [address] (Wo rk) 01/21/2022 Office Visit Gastroenterology Juanis Levi [address] [place] [phone] Luis Fernando Miles MD 516 [facility] [address] [place], [place] [phone] documented as of this encounter Visit Diagnoses Diagnosis ERRONEOUS ENCOUNTER--DISREGARD - Primary documented in this encounter Care Teams Solaris Administrator Relationship Specialty Start Date End Date Edgar Alfredo MD PCP - General Family Practice 04/13/12 08/11/14 [address] [facility] [address] [place] [phone] documented as of this encounter
--- OUTSIDE RECORDS SUMMARY | 2021-11-28 13:55 | XMS_ITS | Encounter Summary ---
:1980 Author Organization [place] Address [address] [facility] [place] [address] Care Team Providers Name Role Phone Edgar Alfredo MD Primary Care Provider Reason for Visit Reason Onset Date Comments Refill Request 07/05/2013 subutex Encounter Details Date Type Department Care Team Description 07/05/2013 Telephone [facility] Edgar Alfredo, Ref ill Request Clinic Ashly VÁSQUEZ (subutex) [address] [place] [phone] (Wo rk) Social History Tobacco Use Types Packs/Day Years Used Date Smoking Tobacco: Every Day Cigarettes 0.1 10 Smokeless Tobacco: Never Comments: 5 cigarettes a day Alcohol Use Standard Drinks/Week Comments No 0 (1 standard drink = 0.6 oz pure alcoho l) Sex Assigned at Date Recorded Female 01/14/2020 10:57 AM HOUSE CARPENTER HELPER documented as of this encounter Miscellaneous Notes Telephone Encounter - Edgar Alfredo MD - 07/05/2013 3:42 PM CDT Bridge ordered Telephone Encounter - Suyapa Rodriguez [facility] - 07/05/2013 3:22 PM CDT Patient had appt tomorrow, has to take kids to doctor, rescheduled for Thurs. Ran out of meds today,needs bridge. Suyapa Rodriguez CMA, CLEARANCE COORDINATOR documented in this encounter Plan of Treatment Upcoming Encounters Date Type Specialty Care Team Description 11/29/2021 Office Visit Wound Care Luis Camara, [place] [address] [place] [address] (Wo rk) 01/21/2022 Office Visit Gastroenterology Juanis Levi [address] [place] [address] Luis Fernando Miles MD 516 [facility] [address] [place] [address] documented as of this encounter Visit Diagnoses Diagnosis Opiate dependence (H) Opioid type dependence, unspecified documented in this encounter Care Teams Hogshead Mat Inspector Relationship Specialty Start Date End Date Edgar Alfredo MD PCP - General Family Practice 04/13/12 08/11/[address] [place] [address] documented as of this encounter
--- OUTSIDE RECORDS SUMMARY | 2021-11-28 13:55 | XMS_ITS | Encounter Summary ---
:1980 Author Organization [place] Address [address] [facility] [place] [address] Care Team Providers Name Role Phone Edgar Alfredo MD Primary Care Provider Reason for Visit Reason Onset Date Comments Medication Request 05/17/2013 Encounter Details Date Type Department Care Team Description 05/17/2013 Telephone [facility] Edgar Alfredo Ma rk, Medication Request Ashly VÁSQUEZ [address] [place] [phone] (Wo rk) Social History Tobacco Use Types Packs/Day Years Used Date Smoking Tobacco: Every Day Cigarettes 0.1 10 Smokeless Tobacco: Never Comments: 5 cigarettes a day Alcohol Use Standard Drinks/Week Comments No 0 (1 standard drink = 0.6 oz pure alcoho l) Sex Assigned at Date Recorded Female 01/14/2020 10:57 AM CHIEF ANALYTICS OFFICER documented as of this encounter Miscellaneous [...] see her on 05/31. TY Crista Peoples, Senior Etl Developer Telephone Encounter - Edgar Alfredo MD - 05/17/2013 2:52 PM CDT Advised appointment 05/31/13 4 day bridge ordered Telephone Encounter - Natasha Lee - 05/17/2013 12:11 PM CDT Pt called clinic. Pt stated that she can not make her about today due to thyroid issues and would like a Bridge until her next appt. Pt can be reached at [phone] documented in this encounter Plan of Treatment Upcoming Encounters Date Type Specialty Care Team Description 11/29/2021 Office Visit Wound Care Luis Camara DPM [address] [place], [place] [address] (Wo rk) 01/21/2022 Office Visit Gastroenterology Juanis Levi [address] [place] [phone] Luis Fernando Miles MD [address] [id number] documented as of this encounter Visit Diagnoses Diagnosis Opiate dependence (H) - Primary Opioid type dependence, unspecified documented in this encounter Care Teams Manager Critical Care Unit Relationship Specialty Start Date End Date Edgar Alfredo MD PCP - General Family Practice 04/13/12 08/11/[address] [place] [address] [address] [place] [address] documented as of this encounter
--- OUTSIDE RECORDS SUMMARY | 2021-11-28 13:55 | XMS_ITS | Encounter Summary ---
:1980 Author Organization [place] Address [facility] [place] [address] Care Team Providers Name Role Phone Edgar Alfredo MD Primary Care Provider Reason for Visit Reason Onset Date Comments Refill Request 02/24/2013 Encounter Details Date Type Department Care Team Description 02/24/2013 Refill [facility] Myles Llamas, Refill Request Ashly VÁSQUEZ [address] [facility] 606 [address] [address] [place], [place] [phone] (Wo rk) Social History Tobacco Use Types Packs/Day Years Used Date Smoking Tobacco: Every Day Cigarettes 0.1 10 Smokeless Tobacco: Never Comments: 5 cigarettes a day Alcohol Use Standard Drinks/Week Comments No 0 (1 standard drink = 0.6 oz pure alcoho l) Sex Assigned at Date Recorded Female 01/14/2020 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 Alfredo on 02/24/13. Will f/u per his instructions prn. Nancy Kelley RN February 25, 2013 10:51 AM L MOCKUP MAKER Telephone Encounter - Sintia Colon - 02/24/2013 4:13 PM CST Pt called and I have advised her to call Dr. Alfredo's office ([phone]). She then called the front facer again wondering if Dr. Llamas could fill the suboxone since Dr. Alfredo is out and he refilled it in the past. I informed her that technically Dr. Llamas and Dr. Alfredo do not work together anymore and Dr. Alfredo has to refill his patients meds. She out completely out today. Please review the order that is cued up. Sintia Colon RN L MOCKUP MAKER Telephone Encounter - April Mccauley - 02/24/2013 4:06 PM CST 1. Name of Med(s): suboxone 2. Last OV: 3. Current Dosage (if available): 4. Quantity Prescribed: 5. Prescribed Refills: 6. Si. Pharmacy: 8. [facility] off [address], suboxone current out L MOCKUP MAKER Telephone Encounter - Ryan Molina - 02/24/2013 4:01 PM CST Called and said she needs a refill for Subutex. Dr. Llamas only prescribe through today. She sees 03/01. She can be reached at [phone] L MOCKUP MAKER documented in this encounter Plan of Treatment Upcoming Encounters Date Type Specialty Care Team Description 11/29/2021 Office Visit Wound Care Luis Camara, [place] [address] [place] [phone] (Wo rk) 01/21/2022 Office Visit Gastroenterology Juanis Levi [address] [place] [address] Luis Fernando Miles MD 516 [facility] 2[address] [place] [address] documented as of this encounter Visit Diagnoses Diagnosis Opiate dependence (H) - Primary Opioid type dependence, unspecified documented in this encounter Care Teams Executive Asst Relationship Specialty Start Date End Date Edgar Alfredo MD PCP - General Family Practice 04/13/12 08/11/14 [address] [facility] [address] [place] [phone] documented as of this encounter
--- OUTSIDE RECORDS SUMMARY | 2021-11-28 13:55 | XMS_ITS | Encounter Summary ---
:1980 Author Organization [place] Address [address] [facility] [place] [address] Care Team Providers Name Role Phone Edgar Alfredo MD Primary Care Provider Reason for Visit Reason Onset Date Comments Medication Request 03/08/2013 Encounter Details Date Type Department Care Team Description 03/08/2013 Telephone [facility] Edgar Alfredo Ma rk, Medication Request Ashly VÁSQUEZ [address] [place] [phone] (Wo rk) Social History Tobacco Use Types Packs/Day Years Used Date Smoking Tobacco: Every Day Cigarettes 0.1 10 Smokeless Tobacco: Never Comments: 5 cigarettes a day Alcohol Use Standard Drinks/Week Comments No 0 (1 standard drink = 0.6 oz pure alcoho l) Sex Assigned at Date Recorded Female 01/14/2020 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 Needed to reschedule provider appointment originally scheduled for 03/08 does have an appointment scheduled for 03/15/13. Patient is calling to get a refill of her Subutex. Best number to reach patient - [phone] Thank you Violeta [employer] Cable Jointer SSOGRAPH OPERATOR documented in this encounter Plan of Treatment Upcoming Encounters Date Type Specialty Care Team Description 11/29/2021 Office Visit Wound Care Luis Camara DPM [address] [place] [address] (Wo rk) 01/21/2022 Office Visit Gastroenterology Juanis Levi [address] [place] [phone] Luis Fernando Miles MD 516 [facility] 2[address] [place], [place] [address] documented as of this encounter Visit Diagnoses Diagnosis Opiate dependence (H) - Primary Opioid type dependence, unspecified documented in this encounter Care Teams Fire Control Assistant Relationship Specialty Start Date End Date Edgar Alfredo MD PCP - General Family Practice 04/13/12 08/11/14 [address] [facility] [address] [place] [address] documented as of this encounter
--- OUTSIDE RECORDS SUMMARY | 2021-11-28 13:55 | XMS_ITS | Encounter Summary ---
:1980 Author Organization [place] Address [address] [facility] [place] [address] Care Team Providers Name Role Phone Edgar Alfredo MD Primary Care Provider Encounter Details Date Type Department Care Team Description 02/15/[address] [facility] Clinic Opi ate dependence (H) [facility] [address] [place] [address] [address] [place], [place] [phone] Social History Tobacco Use Types Packs/Day Years Used Date Smoking Tobacco: Every Day Cigarettes 0.1 10 Smokeless Tobacco: Never Comments: 5 cigarettes a day Alcohol Use Standard Drinks/Week Comments No 0 (1 standard drink = 0.6 oz pure alcoho l) Sex Assigned at Date Recorded Female 01/14/2020 10:57 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 DRAFTER documented as of this encounter Plan of Treatment Upcoming Encounters Date Type Specialty Care Team Description 11/29/2021 Office Visit Wound Care Luis Camara DPM [address] [place] [address] (Wo rk) 01/21/2022 Office Visit Gastroenterology Juanis Levi [address] [place] [phone] Luis Fernando Miles MD 516 [facility] [place] [address] documented as of this encounter Procedures Procedure Name Priority Date/Time Associated Diagnosis Comme nts DRUG ABUSE SCREEN 6 Routine 02/15/2013 2:56 PM Opiate dependen ce Results for this CHEM DEP URINE ASSOCIATE DRAFTER (H) procedure are in ([facility]) the results section. documented in this encounter Results (ABNORMAL) Drug abuse screen 6 urine (chem dep) ([facility]) (02/15/2013 2:56 PM ASSOCIATE DRAFTER) Component Value Ref Test Analysis Performed Pathologis [...] benzodiazepine is 200 ng/mL or less . [facility] Cannabinoids Qual Negative NEG [facility] Urine Cutoff for a negative cannabinoid is 50 ng/mL or less. [facility] Cocaine Qual Positive NEG [facility] Urine Cutoff for a positive cocai ne is greater than 300 ng/mL. This is an unconfirmed [facility] screening result to be used for medical purposes only. LAB Testing performed using ToxSee method. (A) Ethanol Qual Negative NEG [facility] Urine Cutoff for a negative urine ethanol is 50 mg/dL or less. [facility] Opiates Negative NEG [facility] Qualitative Urine Cutoff for a negative opiate is 300 ng/mL or less. [facility] Specimen Anatomical Collection Method Collection Time Receive d Time (Source) Location / / Volume Laterality Urine specimen 02/15/2013 2:56 PM 013 3:01 (specimen) ASSOCIATE DRAFTER PM ASSOCIATE DRAFTER Edgar Alfredo MD LAB - URINE ORDERABLES Performing Organization Address City/State/ZIP Code Phon e Number [facility] [address] [facility] [place] [address] [facility] documented in this encounter Visit Diagnoses Diagnosis Opiate dependence (H) Opioid type dependence, unspecified documented in this encounter Care Teams Phototypesetter Operator Relationship Specialty Start Date End Date Edgar Alfredo MD PCP - General Family Practice 04/13/12 08/11/[address] [place] [address] documented as of this encounter
--- OUTSIDE RECORDS SUMMARY | 2021-11-28 13:55 | XMS_ITS | Encounter Summary ---
:1980 Author Organization [place] Address [address] [facility] [place] [address] Care Team Providers Name Role Phone Edgar Alfredo MD Primary Care Provider Reason for Visit Reason Onset Date Comments Recheck Medication Erroneous encounter-disregard 04/26/2013 Encounter Details Date Type Department Care Team Description 04/22/2013 Office Visit [facility] Edgar Alfredo ERRONEOUS Clinic Ashly Gauthier MD ENCOUNTER--DISREGARD [address] [place] (Primary Dx) [address] [place] [phone] Social History Tobacco Use Types Packs/Day Years Used Date Smoking Tobacco: Every Day Cigarettes 0.1 10 Smokeless Tobacco: Never Comments: 5 cigarettes a day Alcohol Use Standard Drinks/Week Comments No 0 (1 standard drink = 0.6 oz pure alcoho l) Sex Assigned at Date Recorded Female 01/14/2020 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 Please disregard. documented in this encounter Plan of Treatment Upcoming Encounters Date Type Specialty Care Team Description 11/29/2021 Office Visit Wound Care Luis Camara, [place] [address] [place] [address] (Wo rk) 01/21/2022 Office Visit Gastroenterology Juanis Levi [address] [place] [address] Luis Fernando Miles MD 516 [facility] [address] [place] [address] documented as of this encounter Visit Diagnoses Diagnosis ERRONEOUS ENCOUNTER--DISREGARD - Primary documented in this encounter Care Teams Sourcing Internship Relationship Specialty Start Date End Date Edgar Alfredo MD PCP - General Family Practice 04/13/12 08/11/14 [address] [facility] [address] [place] [address] documented as of this encounter
--- OUTSIDE RECORDS SUMMARY | 2021-11-28 13:55 | XMS_ITS | Encounter Summary ---
:1980 Author Organization [place] Address [address] [place] [address] Care Team Providers Name Role Phone Edgar Alfredo MD Primary Care Provider Reason for Visit Reason Onset Date Comments Erroneous encounter-disregard 03/04/2013 Encounter Details Date Type Department Care Team Description 03/01/2013 Office Visit [facility] Edgar Alfredo de pendence (H) (Primary Dx); Clinic Ashly Gauthier MD ERRONEOUS ENCOUNTER--DISREGARD [address] [place] [phone] Social History Tobacco Use Types Packs/Day Years Used Date Smoking Tobacco: Every Day Cigarettes 0.1 10 Smokeless Tobacco: Never Comments: 5 cigarettes a day Alcohol Use Standard Drinks/Week Comments No 0 (1 standard drink = 0.6 oz pure alcoho l) Sex Assigned at Date Recorded Female 01/14/2020 10:57 AM SUPERVISOR ALUM PLANT documented as of this encounter Progress Notes Edgar Alfredo MD - 03/04/2013 10:08 AM CST This encounter was opened in error. Please disregard. RVISOR ALUM PLANT documented in this encounter Plan of Treatment Upcoming Encounters Date Type Specialty Care Team Description 11/29/2021 Office Visit Wound Care Luis Camara, [place] [address] [facility] [place] [address] (Wo rk) 01/21/2022 Office Visit Gastroenterology Juanis Levi [address] [place] [address] Luis Fernando Miles MD 516 [facility] [place], [place] [address] documented as of this encounter Visit Diagnoses Diagnosis Opiate dependence (H) - Primary Opioid type dependence, unspecified ERRONEOUS ENCOUNTER--DISREGARD documented in this encounter Care Teams Merchandise Director Relationship Specialty Start Date End Date Edgar Alfredo MD PCP - General Family Practice 04/13/12 08/11/14 [address] [facility] 700 [place] [phone] documented as of this encounter
--- OUTSIDE RECORDS SUMMARY | 2021-11-28 13:55 | XMS_ITS | Encounter Summary ---
:1980 Author Organization [place] Address [address] [facility] [address] Care Team Providers Name Role Phone Edgar Alfredo MD Primary Care Provider Reason for Visit Reason Onset Date Comments Medication Request 05/31/2013 PA Encounter Details Date Type Department Care Team Description 05/31/2013 Telephone [facility] Edgar Alfredo, [facility] ication Request (PA) Clinic Ashly VÁSQUEZ [address] [place] [phone] (Wo rk) Social History Tobacco Use Types Packs/Day Years Used Date Smoking Tobacco: Every Day Cigarettes 0.1 10 Smokeless Tobacco: Never Comments: 5 cigarettes a day Alcohol Use Standard Drinks/Week Comments No 0 (1 standard drink = 0.6 oz pure alcoho l) Sex Assigned at Date Recorded Female 01/14/2020 10:57 AM WAITER/WAITRESS CABIN CLASS documented as of this encounter Miscellaneous [...] Friday, needs bridge until then. Pharmacy # [id number] Suyapa Rodriguez CMA, CLERICAL AIDE documented in this encounter Plan of Treatment Upcoming Encounters Date Type Specialty Care Team Description 11/29/2021 Office Visit Wound Care Luis Camara DPM [address] [place] [address] (Wo rk) 01/21/2022 Office Visit Gastroenterology Juanis Levi 2450 [place] [phone] Luis Fernando Miles MD 516 [facility] 2A [place], [place] [address] documented as of this encounter Visit Diagnoses Diagnosis Opiate dependence (H) Opioid type dependence, unspecified documented in this encounter Care Teams Director Of Annual Giving Relationship Specialty Start Date End Date Edgar Alfredo MD PCP - General Family Practice 04/13/12 08/11/14 [address] [facility] 700 [place] [phone] documented as of this encounter
--- OUTSIDE RECORDS SUMMARY | 2021-11-28 13:55 | XMS_ITS | Encounter Summary ---
:1980 Author Organization [place] Address [facility] [place] [address] Care Team Providers Name Role Phone Edgar Alfredo MD Primary Care Provider Reason for Visit Reason Onset Date Comments Panel Management 06/21/2013 [email or web address] Encounter Details Date Type Department Care Team Description 06/21/2013 [facility] Jax Larsen Panel Management Clinic Ashly Carver MD (phq9) [address] [facility] [address] [place] [address] [address] [place] [phone] (Wo rk) Social History Tobacco Use Types Packs/Day Years Used Date Smoking Tobacco: Every Day Cigarettes 0.1 10 Smokeless Tobacco: Never Comments: 5 cigarettes a day Alcohol Use Standard Drinks/Week Comments No 0 (1 standard drink = 0.6 oz pure alcoho l) Sex Assigned at Date Recorded Female 01/14/2020 10:57 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 documented as of this encounter Plan of Treatment Upcoming Encounters Date Type Specialty Care Team Description 11/29/2021 Office Visit Wound Care Luis Camara DPM [address] [place], [place] [address] (Wo rk) 01/21/2022 Office Visit Gastroenterology Juanis Levi [address] [place] [phone] Luis Fernando Miles MD 516 [facility] [address] [place], [place] [address] documented as of this encounter Visit Diagnoses Not on filedocumented in this encounter Care Teams Auto Air Conditioning Apprentice Relationship Specialty Start Date End Date Edgar Alfredo MD PCP - General Family Practice 04/13/12 08/11/[address] [facility] 700 [place] [phone] documented as of this encounter
--- OUTSIDE RECORDS SUMMARY | 2021-11-28 13:55 | XMS_ITS | Encounter Summary ---
:1980 Author Organization [place] Address [address] [facility] [place] [address] Care Team Providers Name Role Phone Edgar Alfredo MD Primary Care Provider Reason for Visit Reason Comments Recheck Medication Encounter Details Date Type Department Care Team Description 06/08/2013 Office Visit [facility] Edgar Alfredo de pendence (H) Clinic Ashly Gauthier MD [address] [place] [place] [phone] Social History Tobacco Use Types Packs/Day Years Used Date Smoking Tobacco: Every Day Cigarettes 0.1 10 Smokeless Tobacco: Never Comments: 5 cigarettes a day Alcohol Use Standard Drinks/Week Comments No 0 (1 standard drink = 0.6 oz pure alcoho l) Sex Assigned at Date Recorded Female 01/14/2020 10:57 AM EDUCATIONAL PSYCHOLOGIST documented as of this encounter Last Filed [...] using cuff size: large Suyapa Rodriguez CMA, TRANSPLANTER ORCHID documented in this encounter Plan of Treatment Upcoming Encounters Date Type Specialty Care Team Description 11/29/2021 Office Visit Wound Care Luis Camara DPM [address] [place], [place] [phone] (Wo rk) 01/21/2022 Office Visit Gastroenterology Juanis Levi [address] [place] [address] Luis Fernando Miles MD [address] [place] [phone] documented as of this encounter Procedures Procedure [...] LAB - URINE ORDERABLES Performing Organization Address City/[facility] Code Phon e Number [address] PRIMARY CARE Building [address] [...] LAB - URINE ORDERABLES Performing Organization Address [facility] Phon e Number [address] PRIMARY CARE Building [address] [facility] documented in this encounter Visit Diagnoses Diagnosis Opiate dependence (H) Opioid type dependence, unspecified documented in this encounter Care Teams Miniature Train Driver Relationship Specialty Start Date End Date Edgar Alfredo MD PCP - General Family Practice 04/13/12 08/11/[address] [place] [phone] documented as of this encounter
--- OUTSIDE RECORDS SUMMARY | 2021-11-28 13:55 | XMS_ITS | Encounter Summary ---
:1980 Author Organization [place] Address [address] [place] [address] Care Team Providers Name Role Phone Edgar Alfredo MD Primary Care Provider Encounter Details Date Type Department Care Team Description 03/01/[address] [facility] Nithya Alfredo MD [place] [address] [facility] [address] [place], [place] [phone] [place] [phone] Social History Tobacco Use Types Packs/Day Years Used Date Smoking Tobacco: Every Day Cigarettes 0.1 10 Smokeless Tobacco: Never Comments: 5 cigarettes a day Alcohol Use Standard Drinks/Week Comments No 0 (1 standard drink = 0.6 oz pure alcoho l) Sex Assigned at Date Recorded Female 01/14/2020 10:57 AM FINANCIAL SERVICES PROFESSIONAL documented as of this encounter Miscellaneous Notes Telephone Encounter - Edgar Alfredo MD - 03/01/2013 11:49 AM CST Appointment cancelled as son has pneumonia 8 day bridge ordered Returned call; left message. NCIAL SERVICES PROFESSIONAL documented in this encounter Plan of Treatment Upcoming Encounters Date Type Specialty Care Team Description 11/29/2021 Office Visit Wound Care Luis Camara, DPM [address] [place], [place] [address] (Wo rk) 01/21/2022 Office Visit Gastroenterology Juanis Levi 2450 [place] [phone] Luis Fernando Miles MD 516 [facility] [place], [place] [phone] documented as of this encounter Visit Diagnoses Diagnosis Opiate dependence (H) - Primary Opioid type dependence, unspecified documented in this encounter Care Teams Hydrogen Plant Operations Manager Relationship Specialty Start Date End Date Edgar Alfredo MD PCP - General Family Practice 04/13/12 6 [address] [facility] S [place] [address] [place] [phone] documented as of this encounter
--- OUTSIDE RECORDS SUMMARY | 2021-11-28 13:55 | XMS_ITS | Encounter Summary ---
:1980 Author Organization [place] Address [address] [facility] [place] [address] Care Team Providers Name Role Phone Edgar Alfredo MD Primary Care Provider Reason for Visit Reason Onset Date Comments Recheck Medication Erroneous encounter-disregard 04/29/2013 Encounter Details Date Type Department Care Team Description 04/26/2013 Office Visit [facility] Edgar Alfredo ERRONEOUS Clinic Ashly Gauthier MD ENCOUNTER--DISREGARD [address] [place] (Primary Dx) [address] [place] [phone] Social History Tobacco Use Types Packs/Day Years Used Date Smoking Tobacco: Every Day Cigarettes 0.1 10 Smokeless Tobacco: Never Comments: 5 cigarettes a day Alcohol Use Standard Drinks/Week Comments No 0 (1 standard drink = 0.6 oz pure alcoho l) Sex Assigned at Date Recorded Female 01/14/2020 10:57 AM HEALTH PROMOTION EDUCATOR documented as of this encounter Progress Notes Edgar Alfredo MD - 04/29/2013 10:09 AM CDT This encounter was opened in error. Please disregard. documented in this encounter Plan of Treatment Upcoming Encounters Date Type Specialty Care Team Description 11/29/2021 Office Visit Wound Care Luis Camara, [place] [address] [place] [address] (Wo rk) 01/21/2022 Office Visit Gastroenterology Juanis Levi 2450 [place] [address] Luis Fernando Miles MD 516 [facility] 2A [place] [address] documented as of this encounter Visit Diagnoses Diagnosis ERRONEOUS ENCOUNTER--DISREGARD - Primary documented in this encounter Care Teams Pie Bakery Laborer Relationship Specialty Start Date End Date Edgar Alfredo MD PCP - General Family Practice 04/13/12 08/11/14 [address] [facility] [address] [place] [address] [place] [address] documented as of this encounter
--- OUTSIDE RECORDS SUMMARY | 2021-11-28 13:55 | XMS_ITS | Encounter Summary ---
:1980 Author Organization [place] Address [address] [facility] [place] [address] Care Team Providers Name Role Phone Edgar Alfredo MD Primary Care Provider Reason for Visit Reason Onset Date Comments Refill Request 04/22/2013 Subox bridge Encounter Details Date Type Department Care Team Description 04/22/2013 Refill [facility] Edgar Alfredo , Refill Request ([facility] MD lundberg) [address] [place] [address] [place] [phone] (Wo rk) Social History Tobacco Use Types Packs/Day Years Used Date Smoking Tobacco: Every Day Cigarettes 0.1 10 Smokeless Tobacco: Never Comments: 5 cigarettes a day Alcohol Use Standard Drinks/Week Comments No 0 (1 standard drink = 0.6 oz pure alcoho l) Sex Assigned at Date Recorded Female 01/14/2020 10:57 AM CARDIAC CATH RN documented as of this encounter Miscellaneous Notes Telephone Encounter - Noy Ulloa - 04/22/2013 4:18 PM CST Pt requesting bridge to cover her until 04/26. IAC CATH RN documented in this encounter Plan of Treatment Upcoming Encounters Date Type Specialty Care Team Description 11/29/2021 Office Visit Wound Care [place], Luis Lex, [place] [address] [place] [address] (Wo rk) 01/21/2022 Office Visit Gastroenterology Juanis Leiv 2450 [place] [phone] Luis Fernando Miles MD 516 [facility] 2[address] [place], [place] [address] documented as of this encounter Visit Diagnoses Diagnosis Opiate dependence (H) - Primary Opioid type dependence, unspecified documented in this encounter Care Teams Environmental Department Manager Relationship Specialty Start Date End Date Edgar Alfredo MD PCP - General Family Practice 04/13/12 08/11/14 [address] [facility] S [address] [place] [phone] documented as of this encounter
--- OUTSIDE RECORDS SUMMARY | 2021-11-28 13:55 | XMS_ITS | Encounter Summary ---
:1980 Author Organization [place] Address [address] [place] [address] Care Team Providers Name Role Phone Edgar Alfredo MD Primary Care Provider Reason for Visit Reason Onset Date Comments Recheck Medication Erroneous encounter-disregard 03/18/2013 Encounter Details Date Type Department Care Team Description 03/15/2013 Office Visit [facility] Edgar Alfredo ERRONEOUS Clinic Ashly Gauthier MD ENCOUNTER--DISREGARD [address] [place] (Primary Dx) [address] [place] [phone] Social History Tobacco Use Types Packs/Day Years Used Date Smoking Tobacco: Every Day Cigarettes 0.1 10 Smokeless Tobacco: Never Comments: 5 cigarettes a day Alcohol Use Standard Drinks/Week Comments No 0 (1 standard drink = 0.6 oz pure alcoho l) Sex Assigned at Date Recorded Female 01/14/2020 10:57 AM CONCRETE FINISHING 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 documented as of this encounter Progress Notes Edgar Alfredo MD - 03/18/2013 10:38 AM CST This encounter was opened in error. Please disregard. RETE FINISHING 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 documented in this encounter Plan of Treatment Upcoming Encounters Date Type Specialty Care Team Description 11/29/2021 Office Visit Wound Care Luis Camara, [place] [address] [place] [address] (Wo rk) 01/21/2022 Office Visit Gastroenterology Juanis Levi 2450 [place] [address] Luis Fernando Miles MD 516 [facility] 2A [place] [address] documented as of this encounter Visit Diagnoses Diagnosis ERRONEOUS ENCOUNTER--DISREGARD - Primary documented in this encounter Care Teams Marble Polisher Relationship Specialty Start Date End Date Edgar Alfredo MD PCP - General Family Practice 04/13/12 08/11/14 [address] [facility] [address] [place] [address] [place] [address] documented as of this encounter
--- OUTSIDE RECORDS SUMMARY | 2021-11-28 13:55 | XMS_ITS | Encounter Summary ---
:1980 Author Organization [place] Address [address] [facility] [place] [address] Care Team Providers Name Role Phone Edgar Alfredo MD Primary Care Provider Reason for Visit Reason Onset Date Comments Call Back 02/03/2013 Encounter Details Date Type Department Care Team Description 02/03/2013 Telephone [facility] Nithya Alfredo MD Call Back [place] [address] [facility] [address] [place], [place] [address] [facility] [address] [place] [phone] Social History Tobacco Use Types Packs/Day Years Used Date Smoking Tobacco: Every Day Cigarettes 0.1 10 Smokeless Tobacco: Never Comments: 5 cigarettes a day Alcohol Use Standard Drinks/Week Comments No 0 (1 standard drink = 0.6 oz pure alcoho l) Sex Assigned at Date Recorded Female 01/14/2020 10:57 AM INFANT TODDLER LEAD TEACHER documented as of this encounter Miscellaneous Notes Telephone Encounter - Chapis Diaz - 02/04/2013 9:52 AM CST Pt notified she will need us to confirm ride into clinic through her insurance.. To come in for testing. rx faxed. Chapis Diaz RN NT TODDLER LEAD TEACHER Telephone Encounter - Edgar Alfredo MD - 02/04/2013 9:48 AM CST Refilled 1 week supply; needs to come in for drug screen within 1 week before further refills NT TODDLER LEAD TEACHER Telephone Encounter - Sintia Colon - 02/03/2013 3:55 PM CST Please see note below. Last OV was on 01/07/2013, refilled 01/07/2013 #42. Pt unable to come in tomorrow, but she did scheduled for 03/[address] Order cued up. Sintia Colon RN NT TODDLER LEAD TEACHER Telephone Encounter - April Mccauley - 02/03/2013 3:43 PM CST Patient called in stating that she has an appointment with tona tomorrow, 02/04/2013 bu is unable tocome at that time due to also needing to go to court, patient requesting a call back from tona to discuss next steps. Also subutex will be out tomorrow, phone number [phone] (new cellphone number). NT TODDLER LEAD TEACHER documented in this encounter Plan of Treatment Upcoming Encounters Date Type Specialty Care Team Description 11/29/2021 Office Visit Wound Care Luis Camara DPM [address] [place], [place] [address] (Wo rk) 01/21/2022 Office Visit Gastroenterology Juanis Levi 2450 [place] [address] Luis Fernando Miles MD [address] [facility] 2A [place], [place] [address] documented as of this encounter Visit Diagnoses Diagnosis Opiate dependence (H) - Primary Opioid type dependence, unspecified documented in this encounter Care Teams Software Applications Architect Relationship Specialty Start Date End Date Edgar Alfredo MD PCP - General Family Practice 04/13/12 08/11/[address] [place] [phone] documented as of this encounter
--- OUTSIDE RECORDS SUMMARY | 2021-11-28 13:55 | XMS_ITS | Encounter Summary ---
:1980 Author Organization [place] Address [address] [facility] [place] [address] Care Team Providers Name Role Phone Edgar Alfredo MD Primary Care Provider Reason for Visit Reason Onset Date Comments Refill Request 03/23/2013 suboxone Encounter Details Date Type Department Care Team Description 03/23/2013 Refill [facility] Edgar Alfredo, Ref ill Request [facility] (suboxone) [address] [place] [address] [place] [address] (Wo rk) Social History Tobacco Use Types Packs/Day Years Used Date Smoking Tobacco: Every Day Cigarettes 0.1 10 Smokeless Tobacco: Never Comments: 5 cigarettes a day Alcohol Use Standard Drinks/Week Comments No 0 (1 standard drink = 0.6 oz pure alcoho l) Sex Assigned at Date Recorded Female 01/14/2020 10:57 AM CANDY SEPARATOR HARD documented as of this encounter Miscellaneous Notes Telephone Encounter - Suyapa Rodriguez - 03/24/2013 9:00 AM CST Tried to call patient, number below not good. Number in chart not good either. Y SEPARATOR HARD Telephone Encounter - Edgar Alfredo MD - 03/23/2013 2:52 PM CST Has missed too many appointments No refills until seen Y SEPARATOR HARD Telephone Encounter - Suyapa Rodriguez - 03/23/2013 2:34 PM CST Patient called, missed appt. today due to transportation not arriving. Rescheduled for this Thurs. Says she is out of suboxone, needs some to tide her over. She can be reached at [phone]. Suyapa Rodriguez, LEAD RIDER, COSMETICS DEMONSTRATOR Y SEPARATOR HARD documented in this encounter Plan of Treatment Upcoming Encounters Date Type Specialty Care Team Description 11/29/2021 Office Visit Wound Care Luis Camara, [place] [address] [facility] [place], [place] [address] (Wo rk) 01/21/2022 Office Visit Gastroenterology Juanis Levi [address]50 [place] [address] Luis Fernando Miles MD 516 [facility] 2A [place], [place] [address] documented as of this encounter Visit Diagnoses Not on filedocumented in this encounter Care Teams Bead Wrapper Relationship Specialty Start Date End Date Edgar Alfredo MD PCP - General Family Practice 04/13/12 08/11/14 [address] [place] [phone] documented as of this encounter
--- OUTSIDE RECORDS SUMMARY | 2021-11-28 13:55 | XMS_ITS | Encounter Summary ---
:1980 Author Organization [place] Address [address]50 [facility] [place] [address] Care Team Providers Name Role Phone Edgar Alfredo MD Primary Care Provider Reason for Visit Reason Onset Date Comments Medication Request 03/15/2013 subutex Encounter Details Date Type Department Care Team Description 03/15/2013 Telephone [facility] Edgar Alfredo, [facility] ication Request Clinic Ashly VÁSQUEZ (subutex) [address] [place] [address] [place] [phone] (Wo rk) Social History Tobacco Use Types Packs/Day Years Used Date Smoking Tobacco: Every Day Cigarettes 0.1 10 Smokeless Tobacco: Never Comments: 5 cigarettes a day Alcohol Use Standard Drinks/Week Comments No 0 (1 standard drink = 0.6 oz pure alcoho l) Sex Assigned at Date Recorded Female 01/14/2020 10:57 AM BUS ATTENDANT documented as of this encounter Miscellaneous Notes Telephone Encounter - Suyapa Rodriguez - 03/15/2013 4:05 PM CST Pt notified ATTENDANT Telephone Encounter - Edgar Alfredo MD - 03/15/2013 3:37 PM CST 8 Day bridge called into [facility] [address] ATTENDANT Telephone Encounter - Suyapa Rodriguez - 03/15/2013 2:48 PM CST Patient called and left VM message at 12:55p today. Said she missed her appt. due to car trouble. Has new appt. on 03/23/13. She is out of her med. Needs new Rx. She can be reached at [phone]. Suyapa Rodriguez, CASINO BANKER, LOSS CONTROL MANAGER ATTENDANT documented in this encounter Plan of Treatment Upcoming Encounters Date Type Specialty Care Team Description 11/29/2021 Office Visit Wound Care Luis Camara, [place] [address] [place], [place] [address] (Wo rk) 01/21/2022 Office Visit Gastroenterology Juanis Levi 24[address] [place] [address] Luis Fernando Miles MD 516 [facility] 2A [place], [place] [address] documented as of this encounter Visit Diagnoses Diagnosis Opiate dependence (H) - Primary Opioid type dependence, unspecified documented in this encounter Care Teams Retail Product Advisor Relationship Specialty Start Date End Date Edgar Alfredo MD PCP - General Family Practice 04/13/12 08/11/14 [address] [place] [address] [place] [address] documented as of this encounter
--- OUTSIDE RECORDS SUMMARY | 2021-11-28 13:55 | XMS_ITS | Encounter Summary ---
:1980 Author Organization [place] Address 2450 [facility] [place] [address] Care Team Providers Name Role Phone Edgar Alfredo MD Primary Care Provider Reason for Visit Reason Onset Date Comments Recheck Medication Erroneous encounter-disregard 03/23/2013 Encounter Details Date Type Department Care Team Description 03/23/2013 Office Visit [facility] Edgar Alfredo ERRONEOUS Clinic Ashly Gauthier MD ENCOUNTER--DISREGARD [address] [place] (Primary Dx) [address] [place] [phone] Social History Tobacco Use Types Packs/Day Years Used Date Smoking Tobacco: Every Day Cigarettes 0.1 10 Smokeless Tobacco: Never Comments: 5 cigarettes a day Alcohol Use Standard Drinks/Week Comments No 0 (1 standard drink = 0.6 oz pure alcoho l) Sex Assigned at Date Recorded Female 01/14/2020 10:57 AM INVESTMENT BANKING MANAGER documented as of this encounter Progress Notes Edgar Alfredo MD - 03/23/2013 12:43 PM CST This encounter was opened in error. Please disregard. STMENT BANKING MANAGER documented in this encounter Plan of Treatment Upcoming Encounters Date Type Specialty Care Team Description 11/29/2021 Office Visit Wound Care Luis Camara, [place] [address] [place] [address] (Wo rk) 01/21/2022 Office Visit Gastroenterology Juanis Levi [address] [place] [address] Luis Fernando Miles MD 516 [facility] 2A [place] [address] documented as of this encounter Visit Diagnoses Diagnosis ERRONEOUS ENCOUNTER--DISREGARD - Primary documented in this encounter Care Teams Head Shipper Relationship Specialty Start Date End Date Edgar Alfredo MD PCP - General Family Practice 04/13/12 08/11/14 [address] [facility] S [address] [place] [address] documented as of this encounter
--- OUTSIDE RECORDS SUMMARY | 2021-11-28 13:55 | XMS_ITS | Encounter Summary ---
:1980 Author Organization [place] Address 2450 [facility] [place] [address] Care Team Providers Name Role Phone Edgar Alfredo MD Primary Care Provider Reason for Visit Reason Onset Date Comments Pt. Information/instruction 07/27/2013 Schedule denisa ointment Encounter Details Date Type Department Care Team Description 07/27/2013 Telephone [facility] Edgar Alfredo, Pt. Clinic Ashly VÁSQUEZ Information/instruction [address] [place] (Schedule appointment ) [address] [place] [phone] (Wo rk) Social History Tobacco Use Types Packs/Day Years Used Date Smoking Tobacco: Every Day Cigarettes 0.1 10 Smokeless Tobacco: Never Comments: 5 cigarettes a day Alcohol Use Standard Drinks/Week Comments No 0 (1 standard drink = 0.6 oz pure alcoho l) Sex Assigned at Date Recorded Female 01/14/2020 10:57 AM BENZENE STILL UTILITY OPERATOR documented as of this encounter Miscellaneous Notes Telephone Encounter - Antonella Guillen - 07/28/2013 7:11 AM CDT Patient called to schedule an appointment, please call to schedule. documented in this encounter Plan of Treatment Upcoming Encounters Date Type Specialty Care Team Description 11/29/2021 Office Visit Wound Care Luis Camara, [place] 909 [facility] [place] [address] (Wo rk) 01/21/2022 Office Visit Gastroenterology Juanis Levi 2450 [facility] [address] Luis Fernando Miles MD 516 [facility] [place] [address] documented as of this encounter Visit Diagnoses Not on filedocumented in this encounter Care Teams Independent Living Specialist Relationship Specialty Start Date End Date Edgar Alfredo MD PCP - General Family Practice 04/13/12 08/11/14 [address] [place] [address] [place] [address] documented as of this encounter
--- OUTSIDE RECORDS SUMMARY | 2021-11-28 13:55 | XMS_ITS | Encounter Summary ---
:1980 Author Organization [place] Address [address]50 [facility] [place] [address] Care Team Providers Name Role Phone Edgar Alfredo MD Primary Care Provider Encounter Details Date Type Department Care Team Description 07/08/[address] [facility] Clinic Opi ate dependence (H) [place] [address] [address] [place], [place] [phone] Social History Tobacco Use Types Packs/Day Years Used Date Smoking Tobacco: Every Day Cigarettes 0.1 10 Smokeless Tobacco: Never Comments: 5 cigarettes a day Alcohol Use Standard Drinks/Week Comments No 0 (1 standard drink = 0.6 oz pure alcoho l) Sex Assigned at Date Recorded Female 01/14/2020 10:57 AM IMAGING SCHEDULER documented as of this encounter Plan of Treatment Upcoming Encounters Date Type Specialty Care Team Description 11/29/2021 Office Visit Wound Care Luis Camara DPM 909 [place] [address] (Wo rk) 01/21/2022 Office Visit Gastroenterology Juanis Levi [address] [place] [address] Luis Fernando Miles MD 516 [facility] [address] [place], [place] [phone] documented as of this encounter Procedures Procedure [...] Buprenorphine Qual Urine (07/08/2013 12:56 PM CDT) [facility] gist Method Time Signature Buprenorphine Positive [facility] Qual Urine Specimen Anatomical Collection Method Collection Time Receive d Time (Source) Location / / Volume Laterality Urine specimen 07/08/2013 12:56 4 1:01 (specimen) PM CDT PM CDT Edgar Alfredo MD LAB - URINE ORDERABLES Performing Organization Address [facility] Phon e Number [address] PRIMARY CARE Building [address] [address] [facility] LAB Drug abuse screen (NL, RW) (07/08/2013 12:56 PM CDT) [facility] Time Signature Methamphetamine Negative [facility] [...] - URINE ORDERABLES Performing Organization Address [facility] Phon e Number [address] PRIMARY CARE Building [address] [facility] [address] [facility] documented in this encounter Visit Diagnoses Diagnosis Opiate dependence (H) Opioid type dependence, unspecified documented in this encounter Care Teams Fruit Express Agent Relationship Specialty Start Date End Date Edgar Alfredo MD PCP - General Family Practice 04/13/12 08/11/14 [address] [facility] 700 [place] [address] documented as of this encounter
--- OUTSIDE RECORDS SUMMARY | 2021-11-28 13:55 | XMS_ITS | Encounter Summary ---
:1980 Author Organization [place] Address [address] [place] [address] Care Team Providers Name Role Phone Edgar Alfredo MD Primary Care Provider Reason for Visit Reason Comments Recheck Medication Encounter Details Date Type Department Care Team Description 08/02/[address] [facility] Edgar Alfredo de pendence (H) Clinic Ashly Gauthier MD [address] [place] [address] [place] [address] Social History Tobacco Use Types Packs/Day Years Used Date Smoking Tobacco: Every Day Cigarettes 0.1 10 Smokeless Tobacco: Never Comments: 5 cigarettes a day Alcohol Use Standard Drinks/Week Comments No 0 (1 standard drink = 0.6 oz pure alcoho l) Sex Assigned at Date Recorded Female 01/14/2020 10:57 AM EDGE POLISHER documented as of this encounter Last Filed [...] completed using cuff size: miguelangel Rodriguez CMA, WIND COMMISSIONING TECHNICIAN documented in this encounter Plan of Treatment Upcoming Encounters Date Type Specialty Care Team Description 11/29/2021 Office Visit Wound Care Luis Camara, [place] [address] [place] [address] (Wo rk) 01/21/2022 Office Visit Gastroenterology Juanis Levi 2450 [place] [address] Luis Fernando Miles MD 516 [facility] [address] [place] [address] documented as of this encounter Procedures Procedure [...] Address City/State/[place] [address] [facility] Building [address] [facility] [address] [facility] LAB [...] Address City/State/[place] [address] [facility] PRIMARY CARE Building [address] [facility] LAB documented in this encounter Visit Diagnoses Diagnosis Opiate dependence (H) Opioid type dependence, unspecified documented in this encounter Care Teams Roaster Helper Relationship Specialty Start Date End Date Edgar Alfredo MD PCP - General Family Practice 04/13/12 08/11/[address] [place] [address] [place] [address] documented as of this encounter
--- OUTSIDE RECORDS SUMMARY | 2021-11-28 13:55 | XMS_ITS | Encounter Summary ---
:1980 Author Organization [place] Address [address] [facility] [place] [address] Care Team Providers Name Role Phone Edgar Alfredo MD Primary Care Provider Encounter Details Date Type Department Care Team Description 03/25/2013 Office Visit [facility] Mando Hwang Opiate dependence (H) (Primary Dx); Clinic CONY Trejo Moderate major depression (H); [address] Anxiety [address] [place] [phone] Social History Tobacco Use Types Packs/Day Years Used Date Smoking Tobacco: Every Day Cigarettes 0.1 10 Smokeless Tobacco: Never Comments: 5 cigarettes a day Alcohol Use Standard Drinks/Week Comments No 0 (1 standard drink = 0.6 oz pure alcoho l) Sex Assigned at Date Recorded Female 01/14/2020 10:57 AM MANUFACTURING STOREPERSON documented as of this encounter Progress Notes Mando Hwang LMFT - 03/25/2013 3:39 PM CST [facility] Primary Care Clinic Behavioral Health Clinician Progress Note Screening Brief Intervention Referral Treatment (SBIRT) March 25, 2013 Patient Name: Stephani Parker Service Type: Commercial 68666 (15-30 Minute SBIRT Screen And / Or [...] as needed. CONY Muñoz, [facility] FACTURING STOREPERSON documented in this encounter Plan of Treatment Upcoming Encounters Date Type Specialty Care Team Description 11/29/2021 Office Visit Wound Care Luis Camara, [place] [address] [place], [place] [phone] (Wo rk) 01/21/2022 Office Visit Gastroenterology Juanis Levi 2450 [place] [phone] Luis Fernando Miles MD [address] [facility] [place], [place] [address] documented as of this encounter Visit Diagnoses Diagnosis Opiate dependence (H) - Primary Opioid type dependence, unspecified Moderate major depression (H) Major depressive disorder, single episod e, moderate Anxiety Anxiety state, unspecified documented in this encounter Care Teams Coder Relationship Specialty Start Date End Date Edgar Alfredo MD PCP - General Family Practice 04/13/12 08/11/14 [address] [facility] 700 [place] [phone] documented as of this encounter
--- OUTSIDE RECORDS SUMMARY | 2021-11-28 13:55 | XMS_ITS | Encounter Summary ---
:1980 Author Organization [place] Address [address] [facility] [address] Care Team Providers Name Role Phone Edgar Alfredo MD Primary Care Provider Reason for Visit Reason Onset Date Comments Recheck Medication Erroneous encounter-disregard 06/07/2013 Encounter Details Date Type Department Care Team Description 06/07/2013 Office Visit [facility] Edgar Alfredo ERRONEOUS Clinic Ashly Gauthier MD ENCOUNTER--DISREGARD [address] [place] (Primary Dx) [address] [place] [address] Social History Tobacco Use Types Packs/Day Years Used Date Smoking Tobacco: Every Day Cigarettes 0.1 10 Smokeless Tobacco: Never Comments: 5 cigarettes a day Alcohol Use Standard Drinks/Week Comments No 0 (1 standard drink = 0.6 oz pure alcoho l) Sex Assigned at Date Recorded Female 01/14/2020 10:57 AM HOSPICE CARE SALES CONSULTANT documented as of this encounter Progress Notes Edgar Alfredo MD - 06/07/2013 3:14 PM CDT This encounter was opened in error. Please disregard. documented in this encounter Plan of Treatment Upcoming Encounters Date Type Specialty Care Team Description 11/29/2021 Office Visit Wound Care Luis Camara, [place] [address] [place] [address] (Wo rk) 01/21/2022 Office Visit Gastroenterology Juanis Levi 2450 [place] [address] Luis Fernando Miles MD 516 [facility] 2A [place] [address] documented as of this encounter Visit Diagnoses Diagnosis ERRONEOUS ENCOUNTER--DISREGARD - Primary documented in this encounter Care Teams Inspector And Tester Relationship Specialty Start Date End Date Edgar Alfredo MD PCP - General Family Practice 04/13/12 08/11/14 [address] [facility] [address] [place] [address] [place] [address] documented as of this encounter
--- OUTSIDE RECORDS SUMMARY | 2021-11-28 13:55 | XMS_ITS | Encounter Summary ---
:1980 Author Organization [place] Address [facility] [place] [address] Care Team Providers Name Role Phone Edgar Carbone MD Primary Care Provider Reason for Visit Reason Onset Date Comments Medication Request 02/12/2013 Encounter Details Date Type Department Care Team Description 02/12/2013 Telephone [facility] Edgar Carbone Ma rk, Medication Request Ashly VÁSQUEZ [address] [place] [address] [place] [address] [address] [place] [phone] (Wo rk) Social History Tobacco Use Types Packs/Day Years Used Date Smoking Tobacco: Every Day Cigarettes 0.1 10 Smokeless Tobacco: Never Comments: 5 cigarettes a day Alcohol Use Standard Drinks/Week Comments No 0 (1 standard drink = 0.6 oz pure alcoho l) Sex Assigned at Date Recorded Female 01/14/2020 10:57 AM SUBSYSTEMS ENGINEER documented as of this encounter Miscellaneous Notes Telephone Encounter - Madonna Cody - 02/15/2013 2:56 PM CST Script for subutex has been faxed to [facility]. YSTEMS ENGINEER Telephone Encounter - Chapis Elizalde - 02/15/2013 12:46 PM CST Will fax to ana grimm until ua /drug screen complete.--GENARO De La Fuente RN YSTEMS ENGINEER Addendum Note - James Reese MD - 02/15/2013 12:44 PM SUBSYSTEMS ENGINEER Addended by: JAMES REESE on: 02/15/2013 12:44 PM Modules accepted: Orders YSTEMS ENGINEER Telephone Encounter - James Reese MD - 02/15/2013 12:42 PM SUBSYSTEMS ENGINEER Ordered - please notify patient . Thanks James Reese MD YSTEMS ENGINEER Addendum Note - Chapis Elizalde - 02/15/2013 12:05 PM SUBSYSTEMS ENGINEER Addended by: CHAPIS ELIZALDE on: 02/15/2013 12:05 PM Modules accepted: Orders YSTEMS ENGINEER Telephone Encounter - Chapis Elizalde - 02/15/2013 12:04 PM CST Pt coming in today for ua drug screen, if insurance calls is medically necessary for ride. Will route to dr reese to get medication filled coming at 200 Chapis Elizalde RN YSTEMS ENGINEER Telephone Encounter - James Reese MD - 02/15/2013 9:52 AM SUBSYSTEMS ENGINEER Read and agree with plan James Reese MD YSTEMS ENGINEER Telephone Encounter - Edgar Carbone MD - 02/13/2013 10:50 AM CST Attempted to reach patient ; no answer, mailbox full If she calls in my absence: inquire as to whether she has been sober or using. If using - seek detox. If sober - OK to fill Subutex 8 mg per day until appointment 03/01/13 Advise come in for drug screen YSTEMS ENGINEER Telephone Encounter - Chapis Elizalde - 02/12/2013 4:15 PM CST i do not see that pt has checked in for lab as of this time today--just to let you know Chapis Elizalde RN YSTEMS ENGINEER Telephone Encounter - Chapis Elizalde - 02/12/2013 12:31 PM CST 330 today for send outs. She uses [employer] [facility] [employer]. She will call for lab apt after she can set up ride for today Chapis Elizalde RN YSTEMS ENGINEER Telephone Encounter - Chapis Elizalde - 02/12/2013 12:26 PM CST Mail box full at this time, attempted to contact pt Chapis Elizalde RN YSTEMS ENGINEER Telephone Encounter - Edgar Carbone MD - 02/12/2013 12:21 PM CST Will refill as soon as she comes in to leave urine for drug screen - should be today YSTEMS ENGINEER Telephone Encounter - Chapis Elizalde - 02/12/2013 11:49 AM CST Pt aware dr carbone no longer with clinic and that there was a letter mailed to his patients notifying them of this date. Aware dr reese out of office until Friday and they are the only two who are able to prescribe this medication. She would like message sent to dr reese for Friday to review. Chapis Elizalde RN YSTEMS ENGINEER Telephone Encounter - Radhamary kay Violeta - 02/12/2013 11:29 AM CST Patient calling in. Patient needs refill of Subutex Was only given a 1 week refill, but next appointet isnt until 03/01 need refill to cover until linic appointment. Patient is currently out of medication Pharmacy [facility] Best number for patient - [phone] Thank you\ Violeta Knight General Hardware Salesperson YSTEMS ENGINEER documented in this encounter Plan of Treatment Upcoming Encounters Date Type Specialty Care Team Description 11/29/2021 Office Visit Wound Care Luis Camara DPM [address] [facility] [place], [place] [phone] (Wo rk) 01/21/2022 Office Visit Gastroenterology Juanis Levi 2450 [place] [phone] Luis Fernando Miles MD [address] [facility] 2A [place], [place] [address] documented as of this encounter Visit Diagnoses Diagnosis Opiate dependence (H) - Primary Opioid type dependence, unspecified documented in this encounter Care Teams Asset Protection Detective Relationship Specialty Start Date End Date Edgar Carbone MD PCP - General Family Practice 04/13/12 08/11/14 [address] [facility] 700 [place] [phone] documented as of this encounter
--- OUTSIDE RECORDS SUMMARY | 2021-11-28 13:56 | XMS_ITS | Encounter Summary ---
:1980 Author Organization [place] Address [facility] [place] [address] Care Team Providers Name Role Phone Edgar Alfredo MD Primary Care Provider Encounter Details Date Type Department Care Team Description 05/18/2012 External Order [facility] Edgar Alfredo, Results Clinic Ashly VÁSQUEZ [address] [place] [address] [place] [address] [address] [place] [phone] (Wo rk) Social History Tobacco Use Types Packs/Day Years Used Date Smoking Tobacco: Every Day Cigarettes 0.5 10 Smokeless Tobacco: Never Alcohol Use Standard Drinks/Week Comments No 0 (1 standard drink = 0.6 oz pure alcoho l) Sex Assigned at Date Recorded Female 01/14/2020 10:57 AM IRON MINER BLASTING documented as of this encounter Plan of Treatment Upcoming Encounters Date Type Specialty Care Team Description 11/29/2021 Office Visit Wound Care Luis Camara DPM 909 [place] [address] (Wo rk) 01/21/2022 Office Visit Gastroenterology Juanis Levi 2450 [place] [address] Luis Fernando Miles MD 516 [facility] [address] [place] [address] documented as of this encounter Procedures Procedure Name Priority Date/Time Associated Diagnosis Comme nts ABSTRACT PAP (HIM Routine 05/18/2012 Results fo r this EXTERNAL RESULT) procedure a re in the results section . documented in this encounter Results (ABNORMAL) ABSTRACT PAP-NO CHARGE (05/18/2012) Narrative MISYS - 05/18/2012 Pt reports [facility] [place], results abnormal, recheck one year. ??Pt Reported GIOVANNA Letter Sent Patient Reported LAB - HIM EXTERNAL RESULT Performing Organization Address City/State/ZIP Code Phon e Number MISYS documented in this encounter Visit Diagnoses Not on filedocumented in this encounter Care Teams Tin Cutter Relationship Specialty Start Date End Date Edgar Alfredo MD PCP - General Family Practice 04/13/12 08/11/[address] [place] [address] [place] [address] documented as of this encounter
--- OUTSIDE RECORDS SUMMARY | 2021-11-28 13:56 | XMS_ITS | Encounter Summary ---
:1980 Author Organization [place] Address [address] [facility] [place] [address] Care Team Providers Name Role Phone Edgar Alfredo MD Primary Care Provider Reason for Visit Reason Onset Date Comments Call Back 07/14/2012 Encounter Details Date Type Department Care Team Description 07/14/2012 Telephone [facility] Nithya Alfredo MD Call Back [place] [address] [facility] [address] [place], [place] Suite [facility] [address] [place] [phone] Social History Tobacco Use Types Packs/Day Years Used Date Smoking Tobacco: Every Day Cigarettes 0.5 10 Smokeless Tobacco: Never Alcohol Use Standard Drinks/Week Comments No 0 (1 standard drink = 0.6 oz pure alcoho l) Sex Assigned at Date Recorded Female 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 Caller informed Dr Alfredo no longer in clinic today and is not scheduled in clinic tomorrow, this message may not be addressed until -30. Telephone Encounter - Caroline Colon - 07/14/2012 [...] Script for subutex was faxed to the [facility] in [place]. Telephone Encounter - Edgar Alfredo MD - 07/14/2012 10:58 AM CDT Took more than prescribed; now has one left; for breech 07/20/12 Advised 2 mg per day until 07/19/12 Appointment here after 5 Subutex ordered Telephone Encounter - Tigist Frgaa - 07/14/2012 9:50 AM CDT Pt ([phone]) calling, states her dosage for subutex was [...] Care Luis Camara DPM 909 [place] [address] (Wo rk) 01/21/2022 Office Visit Gastroenterology Juanis Levi [address] [place] [address] Luis Fernando Miles MD 516 [facility] 2A [place], [place] [address] documented as of this encounter Visit Diagnoses Diagnosis Opiate dependence (H) - Primary Opioid type dependence, unspecified documented in this encounter Care Teams Scout Professional Sports Relationship Specialty Start Date End Date Edgar Alfredo MD PCP - General Family Practice 04/13/12 08/11/14 [address] [facility] 700 [place] [phone] documented as of this encounter
--- OUTSIDE RECORDS SUMMARY | 2021-11-28 13:56 | XMS_ITS | Encounter Summary ---
:1980 Author Organization [place] Address [address] [facility] [place] [address] Care Team Providers Name Role Phone Edgar Alfredo MD Primary Care Provider Reason for Visit Reason Onset Date Comments Refill Request 11/30/2012 Encounter Details Date Type Department Care Team Description 11/30/2012 Refill [facility] Nithya Alfredo MD Refill Request Lu[place] [address] [facility] [address] [place] [address] 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 Camacho on Edwin: [phone] documented in this encounter Plan of Treatment Upcoming Encounters Date Type Specialty Care Team Description 11/29/2021 Office Visit Wound Care Luis Camara DPM 909 [place] [address] (Wo rk) 01/21/2022 Office Visit Gastroenterology Juanis Levi 2450 [place] [phone] Luis Fernando Miles MD 516 [facility] 2[facility] [place] [address] documented as of this encounter Visit Diagnoses Not on filedocumented in this encounter Care Teams Water Taxi Ferry Operator Relationship Specialty Start Date End Date Edgar Alfredo MD PCP - General Family Practice 04/13/12 08/11/14 [address] [facility] 700 [place] [phone] documented as of this encounter
--- OUTSIDE RECORDS SUMMARY | 2021-11-28 13:56 | XMS_ITS | Encounter Summary ---
:1980 Author Organization [place] Address [facility] [place] [address] Care Team Providers Name Role Phone Edgar Alfredo MD Primary Care Provider Reason for Visit Reason Onset Date Comments Refill Request 09/16/2012 bupropion Encounter Details Date Type Department Care Team Description 09/16/2012 Refill [facility] Edgar Alfredo, Ref ill Request Clinic Ashly VÁSQUEZ (bupropion ) [address] [facility] [address] [facility] [address] [place] [address] (Wo rk) Social History Tobacco Use Types Packs/Day Years Used Date Smoking Tobacco: Every Day Cigarettes 0.5 10 Smokeless Tobacco: Never Alcohol Use Standard Drinks/Week Comments No 0 (1 standard drink = 0.6 oz pure alcoho l) Sex Assigned at Date Recorded Female 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 Last OV was on 09/15/2012 -- PHQ9 was a 6, refilled 06/09/2012 #60. Order is cued up for your review, please advise. Sintia Colon RN documented in this encounter Plan of Treatment Upcoming Encounters Date Type Specialty Care Team Description 11/29/2021 Office Visit Wound Care Luis Camara, [place] [address] [place], [place] [address] (Wo rk) 01/21/2022 Office Visit Gastroenterology Juanis Levi [address] [place] [address] Luis Fernando Miles MD 516 [facility] 2A [place] [address] documented as of this encounter Visit Diagnoses Diagnosis Moderate major depression (H) - Primary Major depressive disorder, single episod e, moderate documented in this encounter Care Teams Occupational Therapy Manager Relationship Specialty Start Date End Date Edgar Alfredo MD PCP - General Family Practice 04/13/12 08/11/14 [address] [place] [place] [address] documented as of this encounter
--- OUTSIDE RECORDS SUMMARY | 2021-11-28 13:56 | XMS_ITS | Encounter Summary ---
:1980 Author Organization [place] Address Pending sale to [facility]0 [facility] [place] [address] Care Team Providers Name Role Phone Edgar Alfredo MD Primary Care Provider Reason for Visit Reason Onset Date Comments RECHECK PAP Date Erroneous encounter-disregard 05/16/2012 Encounter Details Date Type Department Care Team Description 05/15/2012 Office Visit [facility] Edgar Alfredo ERRONEOUS Clinic Ashly Gauthier MD ENCOUNTER--DISREGARD [address] [facility] 606 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 Please disregard. documented in this encounter Plan of Treatment Upcoming Encounters Date Type Specialty Care Team Description 11/29/2021 Office Visit Wound Care Luis Camara, [place] [address] [place] [address] (Wo rk) 01/21/2022 Office Visit Gastroenterology Juanis Levi 2450 [place] [phone] Luis Fernando Miles MD [address] [facility] [place] [address] documented as of this encounter Visit Diagnoses Diagnosis ERRONEOUS ENCOUNTER--DISREGARD - Primary documented in this encounter Care Teams Lead Installer Relationship Specialty Start Date End Date Edgar Alfredo MD PCP - General Family Practice 04/13/12 08/11/14 [address] [facility] [address] [place] [phone] documented as of this encounter
--- OUTSIDE RECORDS SUMMARY | 2021-11-28 13:56 | XMS_ITS | Encounter Summary ---
:1980 Author Organization [place] Address [address] [facility] [place] [address] Care Team Providers Name Role Phone Edgar Alfredo MD Primary Care Provider Encounter Details Date Type Department Care Team Description 07/20/2012 Telephone [facility] Nithya Alfredo MD [place] [address] [place] [address] [place] [address] [phone] [place] [address] [phone] Social History Tobacco Use Types Packs/Day Years Used Date Smoking Tobacco: Every Day Cigarettes 0.5 10 Smokeless Tobacco: Never Alcohol Use Standard Drinks/Week Comments No 0 (1 standard drink = 0.6 oz pure alcoho l) Sex Assigned at Date Recorded Female 01/14/2020 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 Alfredo's game plan regarding suboxone. Patient is having now. Call transferred to Dr. Alfredo. Sintia Colon RN documented in this encounter Plan of Treatment Upcoming Encounters Date Type Specialty Care Team Description 11/29/2021 Office Visit Wound Care Luis Camara, [place] [address] [place] [address] (Wo rk) 01/21/2022 Office Visit Gastroenterology Juanis Levi [address] [place] [address] Luis Fernando Miles MD 516 [facility] 2A [place] [address] documented as of this encounter Visit Diagnoses Not on filedocumented in this encounter Care Teams Purchasing Internship Relationship Specialty Start Date End Date Edgar Alfredo MD PCP - General Family Practice 04/13/12 6 [address] [place] [place] [address] documented as of this encounter
--- OUTSIDE RECORDS SUMMARY | 2021-11-28 13:56 | XMS_ITS | Encounter Summary ---
:1980 Author Organization [place] Address [facility] [place] [address] Care Team Providers Name Role Phone Edgar Alfredo MD Primary Care Provider Reason for Visit Reason Comments RECHECK PHQ9 Recheck Medication No concerns Encounter Details Date Type Department Care Team Description 10/08/2012 Office Visit [facility] Edgar Alfredo Moderate major depression (H) (Primary Dx); Clinic Ashly Gauthier MD Opiate dependence (H) [address] [facility] [address] [facility] [address] [place] [phone] Social History Tobacco Use Types Packs/Day Years Used Date Smoking Tobacco: Every Day Cigarettes 0.1 10 Smokeless Tobacco: Never Comments: 5 cigarettes a day Alcohol Use Standard Drinks/Week Comments No 0 (1 standard drink = 0.6 oz pure alcoho l) Sex Assigned at Date Recorded Female 01/14/2020 10:57 AM EDITOR NEWS documented as of this encounter Last Filed [...] 1:15 PM CDT >> ANN MARIE JOHNSON [facility] Oct 08, 2012 2:00 PM Suboxone RX was faxed to [facility] Ann Marie Johnson [facility] >> SHANI LIND [facility] Oct 08, 2012 1:40 PM Patient [...] Luis Camara DPM [address] [place] [address] (Wo rk) 01/21/2022 Office Visit Gastroenterology Juanis Levi [address] [place] [address] Luis Fernando Miles MD [address] [facility] [address] [place], [place] [address] documented as of this encounter Procedures Procedure Name Priority Date/Time Associated Diagnosis Comme nts DRUG ABUSE SCREEN 6 Routine 10/08/2012 2:34 PM Opiate dependen ce Results for this CHEM DEP URINE CDT (H) procedure are in ([facility]) the results section. documented in this encounter Results (ABNORMAL) Drug abuse screen 6 urine (chem dep) ([facility]) (10/08/2012 2:34 PM CDT) Component Value Ref Test Analysis Performed Pathologis t Range Method Time At Signature Amphetamine Qual Positive NEG [facility] Urine Cutoff for a positive amphetamine is greater th an 500 ng/mL. This is an [facility] unconfirmed screening result to be used for medical purpose s only. (A) LAB Barbiturates Qual Negative NEG [facility] Urine Cutoff for a negative barbiturate is 200 ng/mL or less. [facility] Benzodiazepine Negative NEG [facility] Qual Urine Cutoff for a negative benzodiazepine is 200 ng/mL or less . [facility] Cannabinoids Qual Negative NEG [facility] Urine Cutoff for a negative cannabinoid is 50 ng/mL or less. [facility] Cocaine Qual Negative NEG [facility] Urine Cutoff for a negative cocaine is 300 ng/mL or less. [facility] Ethanol Qual Negative NEG [facility] Urine Cutoff for a negative urine ethanol is 50 mg/dL or less. [facility] Opiates Negative NEG [facility] Qualitative Urine Cutoff for a negative opiate is 300 ng/mL or less. [facility] Specimen Anatomical Collection Method Collection Time Receive d Time (Source) Location / / Volume Laterality Urine specimen 10/08/2012 2:34 PM 013 2:35 (specimen) CDT PM CDT Edgar Alfredo MD LAB - URINE ORDERABLES Performing Organization Address City/State/ZIP Code Phon e Number [facility] [address] [place] [address] [facility] documented in this encounter Visit Diagnoses Diagnosis Moderate major depression (H) - Primary Major depressive disorder, single episod e, moderate Opiate dependence (H) Opioid type dependence, unspecified documented in this encounter Care Teams Joy Loading Machine Operator Relationship Specialty Start Date End Date Edgar Alfredo MD PCP - General Family Practice 04/13/12 08/11/14 [address] [facility] [address] [place] [address] documented as of this encounter
--- OUTSIDE RECORDS SUMMARY | 2021-11-28 13:56 | XMS_ITS | Encounter Summary ---
:1980 Author Organization [place] Address [facility] [place] [address] Care Team Providers Name Role Phone Edgar Alfredo MD Primary Care Provider Reason for Visit Reason Comments Recheck Medication Encounter Details Date Type Department Care Team Description 01/07/2013 Office Visit [facility] Edgar Alfredo Opiate de pendence (H) (Primary Dx); Clinic Ashly Gauthier MD Moderate major depression (H) [address] [facility] [address] [facility] [address] [place] [address] Social History Tobacco Use Types Packs/Day Years Used Date Smoking Tobacco: Every Day Cigarettes 0.1 10 Smokeless Tobacco: Never Comments: 5 cigarettes a day Alcohol Use Standard Drinks/Week Comments No 0 (1 standard drink = 0.6 oz pure alcoho l) Sex Assigned at Date Recorded Female 01/14/2020 10:57 AM SKID WORKER documented as of this encounter Last Filed Vital Signs Vital Sign Reading Time Taken Comments Blood Pressure 114/69 01/07/2013 11:29 AM SKID WORKER Pulse 78 01/07/2013 11:29 AM SKID WORKER Temperature 36.4 ??C (97.6 ??F) 01/07/2013 11:29 AM SKID WORKER Respiratory Rate - - Oxygen Saturation 98% 01/07/2013 11:29 AM SKID WORKER Inhaled Oxygen Concentration - - Weight 69.4 kg (153 lb) 01/07/2013 11:29 AM SKID WORKER Height 166.4 cm (5' 5.5) 01/07/2013 11:29 AM SKID WORKER Body Mass Index 25.07 01/07/2013 11:29 AM SKID WORKER documented in this encounter Progress Notes Edgar Alfredo MD - 01/09/2013 7:50 AM CST Stephani Parker is here for a periodic Suboxone follow-up. Since last visit patient has been: stable. There has been: no craving. Cues to use and relapse triggers have been: mild. Recovery program has been: active. Uses her yazidism Contact with sponsor has been: no sponsor. [...] and establishing a solid recovery program. WORKER documented in this encounter Nursing Notes 01/07/2013 [...] Visit Wound Care Luis Camara, DPCamryn [address] [place], [place] [address] (Wo rk) 01/21/2022 Office Visit Gastroenterology Juanis Levi [address] [place] [phone] Luis Fernando Miles MD 516 [facility] [place] [address] documented as of this encounter Visit Diagnoses Diagnosis Opiate dependence (H) - Primary Opioid type dependence, unspecified Moderate major depression (H) Major depressive disorder, single episod e, moderate documented in this encounter Care Teams Septic Tank Service Technician Relationship Specialty Start Date End Date Edgar Alfredo MD PCP - General Family Practice 04/13/12 [address] [place] [phone] documented as of this encounter
--- OUTSIDE RECORDS SUMMARY | 2021-11-28 13:56 | XMS_ITS | Encounter Summary ---
:1980 Author Organization [place] Address 2450 [facility] [place] [address] Care Team Providers Name Role Phone Edgar Alfredo MD Primary Care Provider Encounter Details Date Type Department Care Team Description 11/28/2012 Telephone [facility] Rubi Larsen [place] MD [address] [place] [address] [place] [address] 700 [address] [place], [place] [address] [place] [address] [phone] Social History Tobacco Use Types Packs/Day Years Used Date Smoking Tobacco: Every Day Cigarettes 0.1 10 Smokeless Tobacco: Never Comments: 5 cigarettes a day Alcohol Use Standard Drinks/Week Comments No 0 (1 standard drink = 0.6 oz pure alcoho l) Sex Assigned at Date Recorded Female 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/2020 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 documented as of this encounter Miscellaneous Notes Telephone Encounter - Jax Larsen MD - 11/28/2012 3:31 PM CDT patient calls I left my ( subutex) at a relative 4 hours away, Pharmacy saws its too early to refill it but I'm out I called maites, They will allow her to have 2 days pillls and she will call Dr Alfredo Fri documented in this encounter Plan of Treatment Upcoming Encounters Date Type Specialty Care Team Description 11/29/2021 Office Visit Wound Care Luis Camara DPM [address] [place] [address] (Wo rk) 01/21/2022 Office Visit Gastroenterology Juanis Levi [address] [place] [address] Luis Fernando Miles MD 516 [facility] 2A [place] [address] documented as of this encounter Visit Diagnoses Not on filedocumented in this encounter Care Teams Unit Secretary Relationship Specialty Start Date End Date Edgar Alfredo MD PCP - General Family Practice 04/13/12 08/11/14 [address] [facility] [place] [facility] 700 [place] [phone] documented as of this encounter
--- OUTSIDE RECORDS SUMMARY | 2021-11-28 13:56 | XMS_ITS | Encounter Summary ---
:1980 Author Organization [place] Address [facility] [place] [address] Care Team Providers Name Role Phone Edgar Workman MD Primary Care Provider Reason for Visit Reason Onset Date Comments Medication Request 08/14/2012 Encounter Details Date Type Department Care Team Description 08/14/2012 Telephone [facility] Edgar Workman Ma rk, Medication Request Ashly VÁSQUEZ 606 24[facility] [address] [place] [address] [address] [place] [phone] (Wo rk) Social History Tobacco Use Types Packs/Day Years Used Date Smoking Tobacco: Every Day Cigarettes 0.5 10 Smokeless Tobacco: Never Alcohol Use Standard Drinks/Week Comments No 0 (1 standard drink = 0.6 oz pure alcoho l) Sex Assigned at Date Recorded Female 01/14/2020 10:57 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 Telephone Encounter - Marycarmen Spence - 08/17/2012 [...] Current Dosage (if available): 8mg 3) Pharmacy: [facility] in [place] 1) Name of Med(s): wellburtin 2) Current Dosage (if available): 150MG 3) Pharmacy: [facility] in [place] Please call pt at [phone] with any additiona questions/concerns. documented in this encounter Plan of Treatment Upcoming Encounters Date Type Specialty Care Team Description 11/29/2021 Office Visit Wound Care Luis Camara DPM 909 [facility] [place] [address] (Wo rk) 01/21/2022 Office Visit Gastroenterology Juanis Levi [address] [place] [phone] Luis Fernando Miles MD 516 [facility] [address] [place], [place] [address] documented as of this encounter Visit Diagnoses Diagnosis Moderate major depression (H) - Primary Major depressive disorder, single episod e, moderate Opiate dependence (H) Opioid type dependence, unspecified documented in this encounter Care Teams City Planning Engineer Relationship Specialty Start Date End Date Edgar Workman MD PCP - General Family Practice 04/13/12 08/11/14 [address] [facility] 700 [place] [phone] documented as of this encounter
--- OUTSIDE RECORDS SUMMARY | 2021-11-28 13:56 | XMS_ITS | Encounter Summary ---
:1980 Author Organization [place] Address 2450 [facility] [place] [address] Care Team Providers Name Role Phone Edgar Alfredo MD Primary Care Provider Reason for Visit Reason Onset Date Comments Refill Request 04/30/2012 Encounter Details Date Type Department Care Team Description 04/30/2012 Refill [facility] Nithya Alfredo MD Refill Request [place] [address] [facility] [address] [place] [address] Suite [facility] [address] [place] [address] [phone] Social History Tobacco Use Types Packs/Day Years Used Date Smoking Tobacco: Every Day Cigarettes 0.5 10 Smokeless Tobacco: Never Alcohol Use Standard Drinks/Week Comments No 0 (1 standard drink = 0.6 oz pure alcoho l) Sex Assigned at Date Recorded Female 01/14/2020 10:57 AM 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 Telephone Encounter - Sintia Colon - 04/30/2012 [...] be left. Please let her know status at:[phone]. documented in this encounter Plan of Treatment Upcoming Encounters Date Type Specialty Care Team Description 11/29/2021 Office Visit Wound Care Luis Camara DPM 909 [place] [address] (Wo rk) 01/21/2022 Office Visit Gastroenterology Juanis Levi [address] [place] [address] Luis Fernando Miles MD [address] [address] documented as of this encounter Visit Diagnoses Diagnosis Opiate dependence (H) - Primary Opioid type dependence, unspecified documented in this encounter Care Teams Major Gifts Director Relationship Specialty Start Date End Date Edgar Alfredo MD PCP - General Family Practice 04/13/12 08/11/[address] [address] documented as of this encounter
--- OUTSIDE RECORDS SUMMARY | 2021-11-28 13:56 | XMS_ITS | Encounter Summary ---
:1980 Author Organization [place] Address [facility] [place] [address] Care Team Providers Name Role Phone Edgar Alfredo MD Primary Care Provider Reason for Visit Reason Comments RECHECK PHQ9- PCP patient due for DA P/letters Recheck Medication she would like to talk about her antidepressant. Encounter Details Date Type Department Care Team Description 09/15/2012 Office Visit [facility] Edgar Alfredo Moderate major depression (H) (Primary Dx); Clinic Ashly Gauthier MD Opiate dependence (H); [address] [place] [address] [place] [address] [address] [place] [phone] Social History Tobacco Use Types Packs/Day Years Used Date Smoking Tobacco: Every Day Cigarettes 0.5 10 Smokeless Tobacco: Never Alcohol Use Standard Drinks/Week Comments No 0 (1 standard drink = 0.6 oz pure alcoho l) Sex Assigned at Date Recorded Female 01/14/2020 10:57 AM RAIL LAYER documented as of this encounter Last Filed [...] Script for subutex was faxed to the [facility]. >> ADELINE MASSEY FriSep 15, 2012 [...] Visit Wound Care Luis Camara, [place] [address] [facility] [place], [place] [phone] (Wo rk) 01/21/2022 Office Visit Gastroenterology Juanis Levi 2450 [place] [address] Luis Fernando Miles MD 516 [facility] 2[facility] [place], [place] [address] documented as of this encounter Visit Diagnoses Diagnosis Moderate major depression (H) - Primary Major depressive disorder, single episod e, moderate Opiate dependence (H) Opioid type dependence, unspecified Anxiety Anxiety state, unspecified documented in this encounter Care Teams Stonemason Relationship Specialty Start Date End Date Edgar Alfredo MD PCP - General Family Practice 04/13/12 08/11/14 [address] [place] [phone] documented as of this encounter
--- OUTSIDE RECORDS SUMMARY | 2021-11-28 13:56 | XMS_ITS | Encounter Summary ---
:1980 Author Organization [place] Address 2450 [facility] [place] [address] Care Team Providers Name Role Phone Edgar Alfredo MD Primary Care Provider Reason for Visit Reason Onset Date Comments Nurse Advice Line 06/09/2012 Encounter Details Date Type Department Care Team Description 06/09/2012 Telephone [facility] Edgar Alfredo Ma rk, Nurse Advice Line Ashly VÁSQUEZ [address] [facility] [address] [place] [address] [address] [place] [address] (Wo rk) Social History Tobacco Use Types Packs/Day Years Used Date Smoking Tobacco: Every Day Cigarettes 0.5 10 Smokeless Tobacco: Never Alcohol Use Standard Drinks/Week Comments No 0 (1 standard drink = 0.6 oz pure alcoho l) Sex Assigned at Date Recorded Female 01/14/2020 10:57 AM HEATING AND VENTILATING DRAFTER documented as of this encounter Miscellaneous Notes Telephone Encounter - Chapis Diaz - 07/02/2012 3:09 PM CDT Old encounter closed Chapis Diaz RN Telephone Encounter - Chapis Diaz - 06/09/2012 2:38 PM CDT Plan doesn't cover subutex will call for dl [phone] Number [id number] [place]/info over phone will fax us decision Pending pa--called in already today--they will fax us today Their decision Chapis Diaz RN documented in this encounter Plan of Treatment Upcoming Encounters Date Type Specialty Care Team Description 11/29/2021 Office Visit Wound Care Luis Camara, [place] 9[address] [place], [place] [phone] (Wo rk) 01/21/2022 Office Visit Gastroenterology Juanis Levi [address] [place] [address] Luis Fernando Miles MD [address] [facility] 2A [place] [address] documented as of this encounter Visit Diagnoses Not on filedocumented in this encounter Care Teams Utility Sales And Service Manager Relationship Specialty Start Date End Date Edgar Alfredo MD PCP - General Family Practice 04/13/12 08/11/14 [address] [facility] [address] [place] [address] documented as of this encounter
--- OUTSIDE RECORDS SUMMARY | 2021-11-28 13:56 | XMS_ITS | Encounter Summary ---
:1980 Author Organization [place] Address [facility] [place] [address] Care Team Providers Name Role Phone Edgar Alfredo MD Primary Care Provider Reason for Visit Reason Onset Date Comments RECHECK PHQ9-PCP patient nee ds DAP/letters Erroneous encounter-disregard 07/26/2012 Encounter Details Date Type Department Care Team Description 07/23/2012 Office Visit [facility] Edgar Alfredo Moderate major depression (H) (Primary Dx); Clinic Ashly Gauthier MD ERRONEOUS ENCOUNTER--DISREGARD [address] [place] [address] [place] [address] [address] [place] [address] Social History Tobacco Use Types Packs/Day Years Used Date Smoking Tobacco: Every Day Cigarettes 0.5 10 Smokeless Tobacco: Never Alcohol Use Standard Drinks/Week Comments No 0 (1 standard drink = 0.6 oz pure alcoho l) Sex Assigned at Date Recorded Female 01/14/2020 10:57 AM MEDIA AID documented as of this encounter Progress Notes Edgar Alfredo MD - 07/26/2012 1:05 PM CDT This encounter was opened in error. Please disregard. documented in this encounter Plan of Treatment Upcoming Encounters Date Type Specialty Care Team Description 11/29/2021 Office Visit Wound Care Luis Camara, [place] [address] [place] [address] (Wo rk) 01/21/2022 Office Visit Gastroenterology Juanis Levi [address] [place] [address] Luis Fernando Miles MD 516 [facility] 2[facility] [place], [place] [address] documented as of this encounter Visit Diagnoses Diagnosis Moderate major depression (H) - Primary Major depressive disorder, single episod e, moderate ERRONEOUS ENCOUNTER--DISREGARD documented in this encounter Care Teams Livestock Rancher Relationship Specialty Start Date End Date Edgar Alfredo MD PCP - General Family Practice 04/13/12 08/11/14 [address] [facility] [address] [place] [phone] documented as of this encounter
--- OUTSIDE RECORDS SUMMARY | 2021-11-28 13:56 | XMS_ITS | Encounter Summary ---
:1980 Author Organization [place] Address 2450 [facility] [place] [address] Care Team Providers Name Role Phone Edgar Alfredo MD Primary Care Provider Reason for Visit Reason Onset Date Comments Refill Request 04/24/2012 Encounter Details Date Type Department Care Team Description 04/24/2012 Refill [facility] Nithya Alfredo MD Refill Request [place] [address] [facility] [address] [place] [address] Suite [facility] [address] [place] [address] [phone] Social History Tobacco Use Types Packs/Day Years Used Date Smoking Tobacco: Every Day Cigarettes 0.5 10 Smokeless Tobacco: Never Alcohol Use Standard Drinks/Week Comments No 0 (1 standard drink = 0.6 oz pure alcoho l) Sex Assigned at Date Recorded Female 01/14/2020 10:57 AM DRUG SAFETY SCIENTIST documented as of this encounter Miscellaneous Notes Telephone Encounter - Marycarmen Spence - 04/24/2012 2:36 PM CST Wellbutrin request routed to provider to review, per computer chart this medication looks like it may have been discontinued. Marycarmen Spence RN SAFETY SCIENTIST Telephone Encounter - Tigist Fraga - 04/24/2012 2:21 PM CST Pt ([phone]) calling, requesting a refill for wellbutrin for today, states she is out. Camacho [place] as listed in [facility]. SAFETY SCIENTIST documented in this encounter Plan of Treatment Upcoming Encounters Date Type Specialty Care Team Description 11/29/2021 Office Visit Wound Care Luis Camara, [place] [address] [place], [place] [address] (Wo rk) 01/21/2022 Office Visit Gastroenterology Juanis Levi [address] [place] [address] Luis Fernando Miles MD 516 [facility] 2[facility] [place], [place] [address] documented as of this encounter Visit Diagnoses Diagnosis Moderate major depression (H) - Primary Major depressive disorder, single episod e, moderate documented in this encounter Care Teams Training Facilitator Relationship Specialty Start Date End Date Edgar Alfredo MD PCP - General Family Practice 04/13/12 08/11/14 [address] [place] [phone] documented as of this encounter
--- OUTSIDE RECORDS SUMMARY | 2021-11-28 13:56 | XMS_ITS | Encounter Summary ---
:1980 Author Organization [place] Address 2450 [facility] [place] [address] Care Team Providers Name Role Phone None, Bfp Primary Care Provider Unavailable Reason for Visit Reason Onset Date Comments Refill Request 03/31/2012 Encounter Details Date Type Department Care Team Description 03/31/2012 Refill [facility] Nithya Alfredo MD Refill Request [place] [address] [place] [address] [address] [place] [address] [address] [phone] [place] [address] [phone] Social History Tobacco Use Types Packs/Day Years Used Date Smoking Tobacco: Every Day Cigarettes 0.5 10 Smokeless Tobacco: Never Alcohol Use Standard Drinks/Week Comments No 0 (1 standard drink = 0.6 oz pure alcoho l) Sex Assigned at Date Recorded Female 01/14/2020 10:57 AM MANAGER STAFFING documented as of this encounter Miscellaneous Notes Telephone Encounter - Madonna Cody - 03/31/2012 1:12 PM CST Script for subutex was faxed to the [facility] in [place]. GER STAFFING Telephone Encounter - Edgar Alfredo MD - 03/31/2012 12:25 PM CST advised appointment in 1 week Will reduce Subutex to 6 mg GER STAFFING Telephone Encounter - Abel Sal - 03/31/2012 12:20 PM CST Pt missed appt this am. Couldn't get a ride. Asked Dr. Alfredo about situation.Pt was informed that could still see her for her Subutex refill if she can get here w/i the hour. She said it would take over 1-1/2 hours to get here from [place]. Pt was informed the best that can be done is to get a note to Dr. Alfredo and he can call you. Pt's cell#:[phone] GER STAFFING documented in this encounter Plan of Treatment Upcoming Encounters Date Type Specialty Care Team Description 11/29/2021 Office Visit Wound Care Luis Camara DPM [address]09 [place], [place] [address] (Wo rk) 01/21/2022 Office Visit Gastroenterology Juanis Levi 2450 [place] [address] Luis Fernando Miles MD 516 [facility] 2A [place], [place] [address] documented as of this encounter Visit Diagnoses Diagnosis complicated by chemical depend ency, antepartum - Primary Drug dependence, antepartum documented in this encounter Care Teams Environment Friendly Landscape Designer Relationship Specialty Start Date End Date None, Bfp PCP - General 03/02/99 04/12/12 documented as of this encounter
--- OUTSIDE RECORDS SUMMARY | 2021-11-28 13:56 | XMS_ITS | Encounter Summary ---
:1980 Author Organization [place] Address [address] [facility] [place] [address] Care Team Providers Name Role Phone None, Bfp Primary Care Provider Unavailable Edgar Alfredo MD Primary Care Provider Reason for Visit Reason Comments Recheck Medication u/a Encounter Details Date Type Department Care Team Description 04/10/2012 Office Visit [facility] Edgar Alfredo Anxiety ( Primary Dx); Clinic Ashly Gauthier MD complicated by chemical depend ency, antepartum (H); [address] [facility] [address] [facility] Vitamin B12 deficiency (non anaemic); [address] Opiate dependence (H) [place] [phone] Social History Tobacco Use Types Packs/Day Years Used Date Smoking Tobacco: Every Day Cigarettes 0.5 10 Smokeless Tobacco: Never Alcohol Use Standard Drinks/Week Comments No 0 (1 standard drink = 0.6 oz pure alcoho l) Sex Assigned at Date Recorded Female 01/14/2020 10:57 AM GRASS FARM LABORER documented as of this encounter Last Filed Vital Signs Vital Sign Reading Time Taken Comments Blood Pressure 118/57 04/10/2012 4:20 PM GRASS FARM LABORER Pulse 88 04/10/2012 4:20 PM GRASS FARM LABORER Temperature 37.1 ??C (98.7 ??F) 04/10/2012 4:20 PM GRASS FARM LABORER Respiratory Rate - - Oxygen Saturation 98% 04/10/2012 4:20 PM GRASS FARM LABORER Inhaled Oxygen Concentration - - Weight 73 kg (161 lb) 04/10/2012 4:20 PM GRASS FARM LABORER Height 166.4 cm (5' 5.5) 04/10/2012 4:20 PM GRASS FARM LABORER Body Mass Index 26.38 04/10/2012 4:20 PM GRASS FARM LABORER documented in this encounter Progress Notes Edgar [...] coordination of care; discussed tapering before delivery S FARM LABORER documented in this encounter Nursing Notes 04/10/2012 4:30 PM CST >> FERN MARINELLI FriApr 10, 2012 5:01 PM Script for subutex was faxed to the [facility]. >> BRYNN HAMMOND FriApr 10, 2012 [...] completed using cuff size: regular Brynn Hammond GASOLINE ENGINE INSPECTOR documented in this encounter Plan of Treatment Upcoming Encounters Date Type Specialty Care Team Description 11/29/2021 Office Visit Wound Care Luis Camara DPM [address] [place] [address] (Wo rk) 01/21/2022 Office Visit Gastroenterology Juanis Levi [address] [facility] [place] [address] Luis Fernando Miles MD [address] [facility] [address] [place] [address] documented as of this encounter Procedures Procedure Name Priority Date/Time Associated Diagnosis Comme nts DRUG ABUSE SCREEN 6 Routine 04/10/2012 5:10 PM Re sults for this CHEM DEP URINE GRASS FARM LABORER procedure are in ([facility]) the results section. documented in this encounter Results Drug abuse screen 6 urine (chem dep) ([facility]) (04/10/2012 5:10 PM GRASS FARM LABORER) Component Value Ref Test Analysis Performed Pathologis t Range Method Time At Signature Amphetamine Qual Negative NEG [facility] Urine Cutoff for a negative amphetamine is 500 ng/mL or less. [facility] Barbiturates Qual Negative NEG [facility] Urine Cutoff for a negative barbiturate is 200 ng/mL or less. [facility] Benzodiazepine Negative NEG [facility] Qual Urine Cutoff for a negative benzodiazepine is 200 ng/mL or less . [facility] Cannabinoids Qual Negative NEG [facility] Urine Cutoff for a negative cannabinoid is 50 ng/mL or less. [facility] Cocaine Qual Negative NEG [facility] Urine Cutoff for a negative cocaine is 300 ng/mL or less. [facility] Ethanol Qual Negative NEG [facility] Urine Cutoff for a negative urine ethanol is 50 mg/dL or less. [facility] Opiates Negative NEG [facility] Qualitative Urine Cutoff for a negative opiate is 300 ng/mL or less. [facility] Specimen Anatomical Collection Method Collection Time Receive d Time (Source) Location / / Volume Laterality 04/10/2012 5:10 PM 3 7:14 GRASS FARM LABORER PM GRASS FARM LABORER dEgar Alfredo MD LAB - URINE ORDERABLES Performing Organization Address City/State/ZIP Code Phon e Number [facility] [address] [place] [address] [facility] documented in this encounter Visit Diagnoses Diagnosis Anxiety - Primary Anxiety state, unspecified complicated by chemical depend ency, antepartum Drug dependence, antepartum Vitamin B12 deficiency (non anaemic) Other B-complex deficiencies Opiate dependence (H) Opioid type dependence, unspecified documented in this encounter Care Teams Beamer Helper Relationship Specialty Start Date End Date None, Bfp PCP - General 03/02/99 04/12/12 Edgar Alfredo MD PCP - General Family Practice 04/13/12 08/11/[address] [facility] 700 [place] [address] documented as of this encounter
--- OUTSIDE RECORDS SUMMARY | 2021-11-28 13:56 | XMS_ITS | Encounter Summary ---
:1980 Author Organization [place] Address [address] [place] [address] Care Team Providers Name Role Phone Edgar Alfredo MD Primary Care Provider Reason for Visit Reason Onset Date Comments Refill Request 11/16/2012 Encounter Details Date Type Department Care Team Description 11/16/2012 Refill [facility] Nithya Alfredo MD Refill Request [facility] 606 [facility] [address] [place] [address] Suite [facility] [address] [place] [address] [phone] Social History Tobacco Use Types Packs/Day Years Used Date Smoking Tobacco: Every Day Cigarettes 0.1 10 Smokeless Tobacco: Never Comments: 5 cigarettes a day Alcohol Use Standard Drinks/Week Comments No 0 (1 standard drink = 0.6 oz pure alcoho l) Sex Assigned at Date Recorded Female 01/14/2020 10:57 AM WAISTBAND SETTER documented as of this encounter Miscellaneous Notes Telephone Encounter - Madonna Cody - 11/16/2012 4:12 PM CDT Script for subutex was faxed to the [facility]. Telephone Encounter - Marycarmen Spence - 11/16/2012 2:59 PM CDT Wellbutrin has refills per computer chart, refill for Subutex routed to provider to review, please advise. Marycarmen Spence RN Telephone Encounter - Ej Mccauleysosa - 11/16/2012 2:41 PM CDT subutex & wellbutrin refill request documented in this encounter Plan of Treatment Upcoming Encounters Date Type Specialty Care Team Description 11/29/2021 Office Visit Wound Care Luis Camara DPM 909 [place] [address] (Wo rk) 01/21/2022 Office Visit Gastroenterology Juanis Levi 2450 [place] [address] Luis Fernando Miles MD 516 [facility] [address] [place] [address] documented as of this encounter Visit Diagnoses Diagnosis Opiate dependence (H) - Primary Opioid type dependence, unspecified documented in this encounter Care Teams Contingents Supervisor Relationship Specialty Start Date End Date Edgar Alfredo MD PCP - General Family Practice 04/13/12 08/11/14 [address] [facility] 700 [place] [phone] documented as of this encounter
--- OUTSIDE RECORDS SUMMARY | 2021-11-28 13:56 | XMS_ITS | Encounter Summary ---
:1980 Author Organization [place] Address [address] [facility] [place] [address] Care Team Providers Name Role Phone Edgar Carbone MD Primary Care Provider Reason for Visit Reason Onset Date Comments Refill Request 06/29/2012 Encounter Details Date Type Department Care Team Description 06/29/2012 Refill [facility] Nithya Carbone MD Refill Request [place] [address] [facility] [address] [place] [address] Suite [facility] [address] [place] [address] [phone] Social History Tobacco Use Types Packs/Day Years Used Date Smoking Tobacco: Every Day Cigarettes 0.5 10 Smokeless Tobacco: Never Alcohol Use Standard Drinks/Week Comments No 0 (1 standard drink = 0.6 oz pure alcoho l) Sex Assigned at Date Recorded Female 01/14/2020 10:57 AM MASTER PLUMBER documented as of this encounter Miscellaneous Notes [...] take care of this Addendum Note - Myles Srinivasan MD - 06/30/2012 9:41 PM CDT Addended by: MYLES SRINIVASAN on: 06/30/2012 09:41 PM Modules accepted: Orders Telephone Encounter - Myles Srinivasan MD - 06/30/2012 9:40 PM CDT Please find out when Dr Carbone's back; I'll refill until then. Myles Srinivasan MD Addendum Note - Chapis Diaz [...] would likelinda to call her back at [phone] Chapis Diaz RN Telephone Encounter - Chapis Diaz - 06/30/2012 2:20 PM CDT [phone] Telephone Encounter - Marycarmen Spence - 06/30/2012 12:46 PM CDT Request routed to provider to review, please advise. Marycarmen Spence RN Addendum Note - Madonna Marinelli - 06/30/2012 12:25 PM CDT Addended by: MADONNA MARINELLI on: 06/30/2012 12:25 PM Modules accepted: Orders Telephone Encounter - Madonna Marinelli - 06/30/2012 12:22 PM CDT Stephani had to reschedule her appointment for July 23 due to her insurance will not be eligible until July 18 and wondering if her script could be called in to the [facility] in [place]. Please callher at [phone] when this has been done. Telephone Encounter - Sintia Colon - 06/29/2012 11:07 AM CDT Patient is requesting a refill of subutex, triage unable to fill this medication per protocol. Last office visit 06/09, refilled 06/09/2012 #33. Upcoming appt on 07/02. Order is cued up for your review, please advise. Sinita Colon RN Telephone Encounter - April Mccauley - 06/29/2012 11:06 AM CDT Refill request per pt, subutex documented in this encounter Plan of Treatment Upcoming Encounters Date Type Specialty Care Team Description 11/29/2021 Office Visit Wound Care Luis Camara, [place] [address] [place] [address] (Wo rk) 01/21/2022 Office Visit Gastroenterology Juanis Levi 2450 [place] [address] Luis Fernando Miles MD 516 [facility] [address] [place] [address] documented as of this encounter Visit Diagnoses Diagnosis Opiate dependence (H) - Primary Opioid type dependence, unspecified documented in this encounter Care Teams Customer Support Executive Relationship Specialty Start Date End Date Edgar Carbone MD PCP - General Family Practice 04/13/12 08/11/14 [address] [facility] S [facility] 700 [place] [address] documented as of this encounter
--- OUTSIDE RECORDS SUMMARY | 2021-11-28 13:56 | XMS_ITS | Encounter Summary ---
:1980 Author Organization [place] Address [address] [facility] [place] [address] Care Team Providers Name Role Phone Edgar Alfredo MD Primary Care Provider Reason for Visit Reason Comments Recheck Medication Encounter Details Date Type Department Care Team Description 07/23/2012 Office Visit [facility] Edgar Alfredo Opiate de pendence (H) Clinic Ashly Gauthier MD (Primary Dx) [address] [facility] [address] [facility] [address] [place] [phone] Social History Tobacco Use Types Packs/Day Years Used Date Smoking Tobacco: Every Day Cigarettes 0.5 10 Smokeless Tobacco: Never Alcohol Use Standard Drinks/Week Comments No 0 (1 standard drink = 0.6 oz pure alcoho l) Sex Assigned at Date Recorded Female 01/14/2020 10:57 AM CREDIT VERIFIER documented as of this encounter Last Filed [...] Script for subutex was faxed to the [facility]. >> BRYNN HAMMOND FriJul 23, 2012 [...] completed using cuff size: regular Brynn Manish PLATFORM LOADER documented in this encounter Miscellaneous Notes Addendum Note - Brynn Hammond - 08/11/2012 4:52 PM CDT Addended by: BRYNN HAMMOND on: 08/11/2012 04:52 PM Modules accepted: SmartSet documented in this encounter Plan of Treatment Upcoming Encounters Date Type Specialty Care Team Description 11/29/2021 Office Visit Wound Care Luis Camara, [place] [address] [place], [place] [address] (Wo rk) 01/21/2022 Office Visit Gastroenterology Juanis Levi 2450 [place] [phone] Luis Fernando Miles MD 516 [facility] 2[address] [place], [place] [address] documented as of this encounter Visit Diagnoses Diagnosis Opiate dependence (H) - Primary Opioid type dependence, unspecified documented in this encounter Care Teams Reading Specialist Relationship Specialty Start Date End Date Edgar Alfredo MD PCP - General Family Practice 04/13/12 08/11/14 [address] [facility] [address] [place] 700 [place] [address] documented as of this encounter
--- OUTSIDE RECORDS SUMMARY | 2021-11-28 13:56 | XMS_ITS | Encounter Summary ---
:1980 Author Organization [place] Address [address] [facility] [place] [address] Care Team Providers Name Role Phone Edgar Alfredo MD Primary Care Provider Reason for Visit Reason Onset Date Comments Medication Request 06/30/2012 Encounter Details Date Type Department Care Team Description 06/30/2012 Telephone [facility] Edgar Alfredo Ma rk, Medication Request Ashly VÁSQUEZ 606 24[facility] [address] [place] [address] [address] [place] [phone] (Wo rk) Social History Tobacco Use Types Packs/Day Years Used Date Smoking Tobacco: Every Day Cigarettes 0.5 10 Smokeless Tobacco: Never Alcohol Use Standard Drinks/Week Comments No 0 (1 standard drink = 0.6 oz pure alcoho l) Sex Assigned at Date Recorded Female 01/14/2020 10:57 AM LUNCHROOM FOOD SERVICE SUPERVISOR documented as of this encounter Miscellaneous Notes Telephone Encounter - Madonna Cody - 07/01/2012 11:54 AM CDT Script for subutex was faxed to the [facility] in [place]. Telephone Encounter - Chapis Diaz - 06/30/2012 [...] filled it already. Please call pt at [phone] documented in this encounter Plan of Treatment Upcoming Encounters Date Type Specialty Care Team Description 11/29/2021 Office Visit Wound Care Luis Camara DPM 909 [place], [place] [address] (Wo rk) 01/21/2022 Office Visit Gastroenterology Juanis Levi 2450 [place] [phone] Luis Fernando Miles MD 516 [facility] 2A [place], [place] [address] documented as of this encounter Visit Diagnoses Not on filedocumented in this encounter Care Teams Photography Professor Relationship Specialty Start Date End Date Edgar Alfredo MD PCP - General Family Practice 04/13/12 08/11/14 [address] [facility] [address] [place] 700 [place] [phone] documented as of this encounter
--- OUTSIDE RECORDS SUMMARY | 2021-11-28 13:56 | XMS_ITS | Encounter Summary ---
:1980 Author Organization [place] Address [facility]ly [facility] [place] [address] Care Team Providers Name Role Phone Edgar Alfredo MD Primary Care Provider System, Provider Not In Primary Care Provider Unavailable [facility], [facility] Primary Care Provide r Luis Fernando Magana Primary Care Provider [facility] Primary Care Provide r Tatyana Haas RUG RENOVATOR PUBLIC HEALTH Unavailable [phone] Stephani Pina RUG RENOVATOR PUBLIC HEALTH Unavailable [phone] Tatyana Haas RUG RENOVATOR PUBLIC HEALTH Unavailable [phone] Stephani Pina RUG RENOVATOR PUBLIC HEALTH Unavailable [phone] Juanis Levi Primary Care Provider Elsa Yeh RN Unavailable Unavailable Rogelio Treadwell MD Unavailable [phone] Luis CamaraM Unavailable [phone] Camryn Christina MD Unavailable Sintia Lange PA-C Unavailable Luis Fernando Miles MD Unavailable [phone] Reason for Visit Reason Onset Date Comments Other 01/08/2013 Encounter Details Date Type Department Care Team Description 01/08/2013 Telephone [facility] Nithya Alfredo MD Other [place] [address] [place] [address] 700 [address] [place], [place] [address] [address] [place], [place] [address] [phone] Social History Tobacco Use Types Packs/Day Years Used Date Smoking Tobacco: Every Day Cigarettes 0.1 10 Smokeless Tobacco: Never Comments: 5 cigarettes a day Alcohol Use Standard Drinks/Week Comments No 0 (1 standard drink = 0.6 oz pure alcoho l) Sex Assigned at Date Recorded Female 01/14/2020 10:57 AM TECHNICAL DATA ANALYST documented as of this encounter Miscellaneous Notes Telephone Encounter - Chapis Diaz - 02/15/2013 12:01 PM CST NICAL DATA ANALYST Telephone Encounter - Sintia Colon - 01/08/2013 [...] can for the ok. Sintia Colon RN NICAL DATA ANALYST Telephone Encounter - Carmencita Blair - 01/08/2013 2:16 PM CST Pt accidentally took urine sample home yesterday that Dr. Alfredo was requesting and took medical ride so was unable to bring urine sample back, pt wants to know if she needs to come back right away for urine sample again Pt can be reached at [phone] NICAL DATA ANALYST documented in this encounter Plan of Treatment Upcoming Encounters Date Type Specialty Care Team Description 11/29/2021 Office Visit Wound Care Luis Camara, [place] [address] [place] [address] (Wo rk) 01/21/2022 Office Visit Gastroenterology Juanis Levi 2450 [place] [phone] Luis Fernando Miles MD 516 [facility] 2A [place] [address] documented as of this encounter Visit Diagnoses Diagnosis Opiate dependence (H) - Primary Opioid type dependence, unspecified documented in this encounter Additional Health Concerns Infection Onset Date Last Indicated Resolved Time MRSAComment: Added from external infection. 11/07/201406/18 documented as of this encounter Care Teams Plant Scientist Relationship Specialty Start Date End Date Edgar Alfredo, PCP - General Family Practice 04/13/1208/11 [address] [facility] 700 [place] [address] System, Provider Not PCP - General Clinic 08/12/14 7 In [facility], [facility] PCP - General 07/14/[address] [address] Luis Fernando Magana PCP - General Family Practice 12/07/16 01/19/[address] [address] Clinic, [facility] PCP - General 01/20/[address] [address] Juanis Levi PCP - General Addiction Medicine 06/29/21 [address]50 [place] [address] Tatyana Haas, Assigned PCP 08/02/18 01/29/20 RUG RENOVATOR [facility] [address] [facility] [address] [place], [place] [address] Stephani Pina, Assigned PCP 01/30/20 12/30/20 RUG RENOVATOR PUBLIC [facility] [address] [place] [address] [place], [place] [address] Tatyana Haas, Assigned PCP 12/31/20 02/24/21 RUG RENOVATOR [facility] [address] [facility] [address] [place], [place] [address] Stephani Pina, Assigned PCP 02/25/21 RUG RENOVATOR PUBLIC [facility]ALTH [address] [place] [address] [place], [place] [address] Elsa Yeh, Registered Nurse Infectious Diseases 07/25/21 Rogelio Wilson Assigned Musculoskeletal 08/04/21 MD August Provider [address] [place], [place] [address] Luis Camara MD Podiatry 08/16/21 [place] [address] [place], [place] [address] Camryn Christina Assigned Surgical 09/01/21 09/07/21 MD Lexie Provider [address] [facility] 195 [place], [place] [address] Sintia Lange PA-C Assigned Surgical 09/08/21 [address] [facility] [address] [place] [address] Landon Warren MD Gastroenterology 11/21/21 MD Luis Fernando 6 [facility] [address] [place], [place] [address] documented as of this encounter
--- OUTSIDE RECORDS SUMMARY | 2021-11-28 13:56 | XMS_ITS | Encounter Summary ---
:1980 Author Organization [place] Address [address]50 [facility] [place] [address] Care Team Providers Name Role Phone None, Bfp Primary Care Provider Unavailable Reason for Visit Reason Comments RECHECK PAP date Erroneous encounter-disregard Encounter Details Date Type Department Care Team Description 03/31/2012 Office Visit [facility] Edgar Alfredo ERRONEOUS Clinic Ashly Gauthier MD ENCOUNTER--DISREGARD [address] [place] [address] [place] [address] [place] (Primary Dx) [address] [place] [address] Social History Tobacco Use Types Packs/Day Years Used Date Smoking Tobacco: Every Day Cigarettes 0.5 10 Smokeless Tobacco: Never Alcohol Use Standard Drinks/Week Comments No 0 (1 standard drink = 0.6 oz pure alcoho l) Sex Assigned at Date Recorded Female 01/14/2020 10:57 AM 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 documented as of this encounter Progress Notes Madonna Cody - 04/03/2012 1:26 PM CST Appt cancelled 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 documented in this encounter Plan of Treatment Upcoming Encounters Date Type Specialty Care Team Description 11/29/2021 Office Visit Wound Care Luis Camara, [place] [address] [place], [place] [address] (Wo rk) 01/21/2022 Office Visit Gastroenterology Juanis Levi 2450 [place] [address] Luis Fernando Miles MD 516 [facility] 2A [place] [address] documented as of this encounter Visit Diagnoses Diagnosis ERRONEOUS ENCOUNTER--DISREGARD - Primary documented in this encounter Care Teams Mountain Or Glacier Guide Relationship Specialty Start Date End Date None, Bfp PCP - General 03/02/99 04/12/12 documented as of this encounter
--- OUTSIDE RECORDS SUMMARY | 2021-11-28 13:56 | XMS_ITS | Encounter Summary ---
:1980 Author Organization [place] Address Formerly [facility] [place] [address] Care Team Providers Name Role Phone Edgar Alfredo MD Primary Care Provider Reason for Visit Reason Onset Date Comments Nurse Advice Line 11/28/2012 subutex Encounter Details Date Type Department Care Team Description 11/28/2012 Telephone [facility] Edgar Alfredo Nur se Advice Line Clinic Ashly VÁSQUEZ (subutex) [address] [facility] [address] [facility] [address] [place] [address] (Wo rk) Social History Tobacco Use Types Packs/Day Years Used Date Smoking Tobacco: Every Day Cigarettes 0.1 10 Smokeless Tobacco: Never Comments: 5 cigarettes a day Alcohol Use Standard Drinks/Week Comments No 0 (1 standard drink = 0.6 oz pure alcoho l) Sex Assigned at Date Recorded Female 01/14/2020 10:57 AM SPECIAL AGENT [employer] documented as of this encounter Miscellaneous Notes Telephone Encounter - Albania Brewer - 11/28/2012 12:49 PM CDT FNA: Pt said she is out of Subutex. I checked EPIC and saw that 24 had been prescribed on 11/16 whichshould last her until 12/09. Caller said she has none left. I had page op page front office attendant doctor to call pt at [phone]. Albania Brewer RN [facility] [phone] Telephone Encounter - Anthony Roger, RN - 11/28/2012 11:25 AM CDT Medication request: buprenorphine (SUBUTEX) [place] (store # [id number]) pharmacy calling and they [...] then 12/05/12. Route to PCP clinic Anthony Roger RN [facility] documented in this encounter Plan of Treatment Upcoming Encounters Date Type Specialty Care Team Description 11/29/2021 Office Visit Wound Care Luis Camara DPM 909 [place] [address] (Wo rk) 01/21/2022 Office Visit Gastroenterology Juanis Levi 2450 [place] [address] Luis Fernando Miles MD 516 [facility] 2A [place], [place] [address] documented as of this encounter Visit Diagnoses Not on filedocumented in this encounter Care Teams Filter Press Tender Relationship Specialty Start Date End Date Edgar Alfredo MD PCP - General Family Practice 04/13/12 08/11/14 [address] [place] [address] [place] [address] documented as of this encounter
--- OUTSIDE RECORDS SUMMARY | 2021-11-28 13:56 | XMS_ITS | Encounter Summary ---
:1980 Author Organization [place] Address [facility]0 [place] [address] Care Team Providers Name Role Phone Edgar Alfredo MD Primary Care Provider Reason for Visit Reason Onset Date Comments Prior Authorization 05/20/2012 suboxone Encounter Details Date Type Department Care Team Description 05/20/2012 Telephone [facility] Edgar Alfredo Prior [facility] Ashly Gauthier MD (suboxone) [address] [facility] [address] [place] [address] [address] [place] [address] Social History Tobacco Use Types Packs/Day Years Used Date Smoking Tobacco: Every Day Cigarettes 0.5 10 Smokeless Tobacco: Never Alcohol Use Standard Drinks/Week Comments No 0 (1 standard drink = 0.6 oz pure alcoho l) Sex Assigned at Date Recorded Female 01/14/2020 10:57 AM REFRIGERATION TECH documented as of this encounter Miscellaneous [...] Luis Camara DPM [address] [place], [place] [phone] (Wo rk) 01/21/2022 Office Visit Gastroenterology Juanis Levi [address] [facility] [place] [address] Luis Fernando Miles MD [address] [facility] [place] [address] documented as of this encounter Visit Diagnoses Not on filedocumented in this encounter Care Teams Anesthesia Assistant Relationship Specialty Start Date End Date Edgar Alfredo MD PCP - General Family Practice 04/13/12 08/11/14 [address] [facility] S [facility] 700 [place] [address] documented as of this encounter
--- OUTSIDE RECORDS SUMMARY | 2021-11-28 13:56 | XMS_ITS | Encounter Summary ---
:1980 Author Organization [place] Address [facility] [place] [address] Care Team Providers Name Role Phone Edgar Alfredo MD Primary Care Provider Reason for Visit Reason Comments Recheck Medication PHQ9 Encounter Details Date Type Department Care Team Description 12/10/2012 Office Visit [facility] Edgar Alfredo Opiate de pendence (H) (Primary Dx); Clinic Ashly Gauthier MD Moderate major depression (H) [address] [facility] [address] [place] [address] Social History Tobacco Use Types Packs/Day Years Used Date Smoking Tobacco: Every Day Cigarettes 0.1 10 Smokeless Tobacco: Never Comments: 5 cigarettes a day Alcohol Use Standard Drinks/Week Comments No 0 (1 standard drink = 0.6 oz pure alcoho l) Sex Assigned at Date Recorded Female 01/14/2020 10:57 AM PET FOOD DEBONER documented as of this encounter Last Filed [...] 12/10/2012 4:30 PM CDT >> CAROLINE COLON [facility] Dec 10, 2012 5:34 PM RX for suboxone faxed to [facility] Caroline Colon, RN >> BRYNN PORTER [facility] Dec 10, 2012 5:20 PM Patient [...] completed using cuff size: regular Brynn Manish DIRECTOR LEARNING documented in this encounter Plan of Treatment Upcoming Encounters Date Type Specialty Care Team Description 11/29/2021 Office Visit Wound Care Luis Camara DPM [address]09 [place], [place] [address] (Wo rk) 01/21/2022 Office Visit Gastroenterology Juanis Levi 2450 [place] [address] Luis Fernando Miles MD 516 [facility] 2A [place] [address] documented as of this encounter Visit Diagnoses Diagnosis Opiate dependence (H) - Primary Opioid type dependence, unspecified Moderate major depression (H) Major depressive disorder, single episod e, moderate documented in this encounter Care Teams Photo Specialist Relationship Specialty Start Date End Date Edgar Alfredo MD PCP - General Family Practice 04/13/12 08/11/14 [address] [place] [phone] documented as of this encounter
--- OUTSIDE RECORDS SUMMARY | 2021-11-28 13:56 | XMS_ITS | Encounter Summary ---
:1980 Author Organization [place] Address [facility] [place] [address] Care Team Providers Name Role Phone Edgar Alfredo MD Primary Care Provider Reason for Visit Reason Onset Date Comments Refill Request 09/15/2012 Bupropion Hcl ER (SR ) 150 mg Encounter Details Date Type Department Care Team Description 09/15/2012 Refill [facility] Edgar Alfredo, Ref ill Request Clinic Ashly VÁSQUEZ (Bupropion Hcl ER (SR) [address] [facility] [address] [place] 150 mg) [facility] 8[address] [place] [phone] (Wo rk) Social History Tobacco Use Types Packs/Day Years Used Date Smoking Tobacco: Every Day Cigarettes 0.5 10 Smokeless Tobacco: Never Alcohol Use Standard Drinks/Week Comments No 0 (1 standard drink = 0.6 oz pure alcoho l) Sex Assigned at Date Recorded Female 01/14/2020 10:57 AM 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 Marycarmen Spence RN Telephone Encounter - Nini Zheng RPH - 09/16/2012 3:15 PM CDT Will forward to . PHQ-9 is greater than 5. Nini Zheng, PharmD [facility] [phone] Telephone Encounter - Juanis Machuca - 09/15/2012 12:38 PM CDT Patient leaving town 09/18/12. Requesting to get refill before she leaves. Last Fill Date: 06/09/2012 Last Fill Quantity: 60 Last Office Visit: 09/15/2012 Date of Last PHQ-9 score: 09/15/2012 Last PHQ-9 score on record= 6 AST 31 04/10/2010 ALT 41 04/10/2010 Thanks, Juanis Machuca, [facility] [address] [place], [place] [address] [place] [address] documented in this encounter Plan of Treatment Upcoming Encounters Date Type Specialty Care Team Description 11/29/2021 Office Visit Wound Care Luis Camara DPM 909 [place] [address] (Wo rk) 01/21/2022 Office Visit Gastroenterology Juanis Leiv 2450 [place] [phone] Luis Fernando Miles MD 516 [facility] 2A [place] [address] documented as of this encounter Visit Diagnoses Diagnosis Moderate major depression (H) - Primary Major depressive disorder, single episod e, moderate documented in this encounter Care Teams Sponge Fisherman Relationship Specialty Start Date End Date Edgar Alfredo MD PCP - General Family Practice 04/13/12 08/11/14 [address] [place] [address] documented as of this encounter
--- OUTSIDE RECORDS SUMMARY | 2021-11-28 13:56 | XMS_ITS | Encounter Summary ---
:1980 Author Organization [place] Address [facility] [place] [address] Care Team Providers Name Role Phone Edgar Alfredo MD Primary Care Provider Reason for Visit Reason Onset Date Comments Refill Request 10/30/2012 subutex 8mg Encounter Details Date Type Department Care Team Description 10/30/[address] [facility] Edgar Alfredo, Ref ill Request (subutex Clinic [place] 8mg) [address] [facility] [address] 24[address] [facility] 8[address] 700 [place] [phone] (Wo rk) Social History Tobacco Use Types Packs/Day Years Used Date Smoking Tobacco: Every Day Cigarettes 0.1 10 Smokeless Tobacco: Never Comments: 5 cigarettes a day Alcohol Use Standard Drinks/Week Comments No 0 (1 standard drink = 0.6 oz pure alcoho l) Sex Assigned at Date Recorded Female 01/14/2020 10:57 AM MANAGER EDUCATIONAL documented as of this encounter Miscellaneous Notes Telephone Encounter - Sintia Colon - 10/30/2012 3:23 PM CDT Pt requested that the suboxone be faxed to the [facility] on [address] instead. I have cancelled the RX at [facility] and faxed it to the requested pharmacy. Sintia Colon RN Telephone Encounter - Sintia Colon - 10/30/2012 2:53 PM CDT RX for suboxon has been faxed to [facility]. Sintia Colon RN Telephone Encounter - Madonna Cody - 10/30/2012 10:12 AM CDT Stephani called and said that she needs a refill on her subutex on the 03 of November. She made her next appointment with Dr. Alfredo on the 10 of November. She moved so she has a new pharmacy and that is the [facility] off of [address] and their telephone number is [phone]. Any questions she can bereached at [phone]. Telephone Encounter - Natanael Lima - 10/30/2012 9:46 AM CDT Last Fill Date: 10-08-12 Last Quantity: 34 Danisha Ornelas Six Sigma Black Belt Engineer [facility]: [place] Please call patient with any questions at [phone] documented in this encounter Plan of Treatment Upcoming Encounters Date Type Specialty Care Team Description 11/29/2021 Office Visit Wound Care Luis Camara DPM 909 [place] [address] (Wo rk) 01/21/2022 Office Visit Gastroenterology Juanis Levi 2450 [place] [address] Luis Fernando Miles MD [address] [address] documented as of this encounter Visit Diagnoses Diagnosis Opiate dependence (H) - Primary Opioid type dependence, unspecified documented in this encounter Care Teams Receivables Specialist Relationship Specialty Start Date End Date Edgar Alfredo MD PCP - General Family Practice 04/13/12 08/11/[address] [facility] 700 [place] [phone] documented as of this encounter
--- OUTSIDE RECORDS SUMMARY | 2021-11-28 13:56 | XMS_ITS | Encounter Summary ---
:1980 Author Organization [place] Address 2450 [facility] [place] [address] Care Team Providers Name Role Phone Edgar Alfredo MD Primary Care Provider Reason for Visit Reason Onset Date Comments Refill Request 05/19/2012 Encounter Details Date Type Department Care Team Description 05/19/2012 Refill [facility] Nithya Alfredo MD Refill Request [place] [address] [facility] [address] [place] [address] [address] [place] [address] [place] [address] [phone] Social History Tobacco Use Types Packs/Day Years Used Date Smoking Tobacco: Every Day Cigarettes 0.5 10 Smokeless Tobacco: Never Alcohol Use Standard Drinks/Week Comments No 0 (1 standard drink = 0.6 oz pure alcoho l) Sex Assigned at Date Recorded Female 01/14/2020 10:57 AM HVAC TECHNICIAN RESIDENTIAL documented as of this encounter Miscellaneous Notes Telephone Encounter - Madonna Cody - 05/19/2012 2:40 PM CDT The script was faxed and Stephani was notified and also given the information about the appointment. Telephone Encounter - Edgar Alfredo MD - 05/19/2012 2:22 PM CDT MUST NOT MISS THE NEXT APPOINTMENT -please advise Telephone Encounter - Tigist Fraga - 05/19/2012 2:05 PM CDT Pt ([phone]) calling, scheduled appt for med check for 06-09-12, states she has enough subutex until May 26 or , would like a rx for 05-26-12 that would cover until appt 06-09. [facility] [place] as listed in Epic. documented in this encounter Plan of Treatment Upcoming Encounters Date Type Specialty Care Team Description 11/29/2021 Office Visit Wound Care Luis Camara, [place] [address]09 [place] [address] (Wo rk) 01/21/2022 Office Visit Gastroenterology Juanis Levi 2450 [facility] [place] [address] Luis Fernando Miles MD 516 [facility] 2A [place], [place] [address] documented as of this encounter Visit Diagnoses Diagnosis Opiate dependence (H) - Primary Opioid type dependence, unspecified documented in this encounter Care Teams Pvc Monitor Relationship Specialty Start Date End Date Edgar Alfredo MD PCP - General Family Practice 04/13/12 08/11/14 [address] [place] [address] documented as of this encounter
--- OUTSIDE RECORDS SUMMARY | 2021-11-28 13:56 | XMS_ITS | Encounter Summary ---
:1980 Author Organization [place] Address 2450 [facility] [place] [address] Care Team Providers Name Role Phone Edgar Alfredo MD Primary Care Provider Reason for Visit Reason Onset Date Comments Refill Request 06/09/2012 Encounter Details Date Type Department Care Team Description 06/09/2012 Refill [facility] Nithya Alfredo MD Refill Request [facility] [address] [facility] [address] [place] [address] [phone] [place] [address] [phone] Social History Tobacco Use Types Packs/Day Years Used Date Smoking Tobacco: Every Day Cigarettes 0.5 10 Smokeless Tobacco: Never Alcohol Use Standard Drinks/Week Comments No 0 (1 standard drink = 0.6 oz pure alcoho l) Sex Assigned at Date Recorded Female 01/14/2020 10:57 AM SALESPERSON MEATS documented as of this encounter Miscellaneous Notes Telephone Encounter - Deja Shi RN - 06/09/2012 12:18 PM CDT Patient reports that her mother had cleared out the cabinet and threw out all meds and rx, not sureif she would have a refill somewhere else. Called [facility], which should have refill for Wellbutrin, however, it seems patient had it transferred elsewhere as that rx has been closed. Huddled with Dr. Alfredo, who verbally okayed 1 month supply, sent to [facility]. Srinath Short Nurse documented in this encounter Plan of Treatment Upcoming Encounters Date Type Specialty Care Team Description 11/29/2021 Office Visit Wound Care Luis Camara DPM 909 [place] [address] (Wo rk) 01/21/2022 Office Visit Gastroenterology Juanis Levi 2450 [place] [address] Luis Fernando Miles MD 516 [facility] 2A [place] [address] documented as of this encounter Visit Diagnoses Diagnosis Moderate major depression (H) - Primary Major depressive disorder, single episod e, moderate documented in this encounter Care Teams Housekeeping/Laundry Relationship Specialty Start Date End Date Edgar Alfredo MD PCP - General Family Practice 04/13/12 08/11/[address] [place] [address] documented as of this encounter
--- OUTSIDE RECORDS SUMMARY | 2021-11-28 13:56 | XMS_ITS | Encounter Summary ---
:1980 Author Organization [place] Address [facility] [place] [address] Care Team Providers Name Role Phone Edgar Alfredo MD Primary Care Provider Reason for Visit Reason Onset Date Comments Symptoms 07/22/2012 withdrawal from subo xone Encounter Details Date Type Department Care Team Description 07/22/2012 Telephone [facility] Edgar Alfredo, Sym ptoms (withdrawal Clinic Ashly VÁSQUEZ from suboxone ) [address] [facility] [address] [facility] [address] [place] [address] (Wo rk) Social History Tobacco Use Types Packs/Day Years Used Date Smoking Tobacco: Every Day Cigarettes 0.5 10 Smokeless Tobacco: Never Alcohol Use Standard Drinks/Week Comments No 0 (1 standard drink = 0.6 oz pure alcoho l) Sex Assigned at Date Recorded Female 01/14/2020 10:57 AM INSOLVENCY CONSULTANT documented as of this encounter Miscellaneous [...] to talk to Dr. Alfredo (pager # [phone]).I did tell patient this plan, who then [...] Visit Wound Care Luis Camara DPM 909 [place], [place] [address] (Wo rk) 01/21/2022 Office Visit Gastroenterology Juanis Levi 2450 [place] [phone] Luis Fernando Miles MD [address] [phone] documented as of this encounter Visit Diagnoses Not on filedocumented in this encounter Care Teams Veterinarian Relationship Specialty Start Date End Date Edgar Alfredo MD PCP - General Family Practice 04/13/12 08/11/14 [address] [facility] [place] [address] documented as of this encounter
--- OUTSIDE RECORDS SUMMARY | 2021-11-28 13:56 | XMS_ITS | Encounter Summary ---
:1980 Author Organization [place] Address 2450 [facility] [place] [address] Care Team Providers Name Role Phone Edgar Alfredo MD Primary Care Provider Reason for Visit Reason Comments Recheck Medication Encounter Details Date Type Department Care Team Description 06/09/2012 Office Visit [facility] Edgar Alfredo Opiate de pendence (H) Clinic Ashly Gauthier MD (Primary Dx) [address] [facility] [address] [facility] [address] [place] [phone] Social History Tobacco Use Types Packs/Day Years Used Date Smoking Tobacco: Every Day Cigarettes 0.5 10 Smokeless Tobacco: Never Alcohol Use Standard Drinks/Week Comments No 0 (1 standard drink = 0.6 oz pure alcoho l) Sex Assigned at Date Recorded Female 01/14/2020 10:57 AM 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 >> ROSALINE VAZQUEZ FriJun 09, 2012 11:29 AM Please abstract the following data from this visit with this patient into the appropriate field in Epic: Pap smear done on this date: 05/30 (approximately), by this group: [facility], results were Abnormal, will recheck in [...] completed using cuff size: regular Rosaline Vazquez MEDICAL PATHOLOGIST documented in this encounter Plan of Treatment Upcoming Encounters Date Type Specialty Care Team Description 11/29/2021 Office Visit Wound Care Luis Camara DPM 909 [place], [place] [address] (Wo rk) 01/21/2022 Office Visit Gastroenterology Juanis Levi 2450 [place] [address] Luis Fernando Miles MD 516 [facility] 2A [place] [address] documented as of this encounter Visit Diagnoses Diagnosis Opiate dependence (H) - Primary Opioid type dependence, unspecified documented in this encounter Care Teams Sustainability Executive Director Relationship Specialty Start Date End Date Edgar Alfredo MD PCP - General Family Practice 04/13/12 08/11/[address] [place] [address] documented as of this encounter
--- OUTSIDE RECORDS SUMMARY | 2021-11-28 13:56 | XMS_ITS | Encounter Summary ---
:1980 Author Organization [place] Address [facility] [place] [address] Care Team Providers Name Role Phone Edgar Alfredo MD Primary Care Provider Reason for Visit Reason Onset Date Comments Erroneous encounter-disregard 09/22/2012 Encounter Details Date Type Department Care Team Description 09/22/[address] [facility] Edgar Alfredo, Err oneous Clinic Ashly VÁSQUEZ encounter-disregard [address] [place] [address] [place] [address] [address] [place] [phone] (Wo rk) Social History Tobacco Use Types Packs/Day Years Used Date Smoking Tobacco: Every Day Cigarettes 0.5 10 Smokeless Tobacco: Never Alcohol Use Standard Drinks/Week Comments No 0 (1 standard drink = 0.6 oz pure alcoho l) Sex Assigned at Date Recorded Female 01/14/2020 10:57 AM CONTRACTS SPECIALIST documented as of this encounter Plan of Treatment Upcoming Encounters Date Type Specialty Care Team Description 11/29/2021 Office Visit Wound Care Luis Camara DPM 909 [place], [place] [address] (Wo rk) 01/21/2022 Office Visit Gastroenterology Juanis Levi 2450 [place] [phone] Luis Fernando Miles MD 6 [facility] 2[facility] [place], [place] [address] documented as of this encounter Visit Diagnoses Diagnosis Moderate major depression (H) - Primary Major depressive disorder, single episod e, moderate documented in this encounter Care Teams Supervisory Aide Relationship Specialty Start Date End Date Edgar Alfredo MD PCP - General Family Practice 04/13/12 08/11/[address] [place] [address] documented as of this encounter
--- OUTSIDE RECORDS SUMMARY | 2021-11-28 13:57 | XMS_ITS | Encounter Summary ---
:1980 Author Organization [place] Address 2450 [place] [address] Care Team Providers Name Role Phone None, Bfp Primary Care Provider Unavailable Reason for Visit Reason Comments Recheck Medication Encounter Details Date Type Department Care Team Description 01/02/2012 Office Visit [facility] Edgar Alfredo de pendence (H) (Primary Dx); Clinic Ashly Gauthier MD complicated by chemical depend ency, antepartum (H); [address] [facility] Vitamin B12 deficiency (non anaemic) [address] [place] [phone] Social History Tobacco Use Types Packs/Day Years Used Date Smoking Tobacco: Every Day Cigarettes 0.5 10 Smokeless Tobacco: Never Alcohol Use Standard Drinks/Week Comments No 0 (1 standard drink = 0.6 oz pure alcoho l) Sex Assigned at Date Recorded Female 01/14/2020 10:57 AM YARN SKEINS EXAMINER documented as of this encounter Last Filed Vital Signs Vital Sign Reading Time Taken Comments Blood Pressure 108/58 01/02/2012 3:34 PM YARN SKEINS EXAMINER Pulse 109 01/02/2012 3:34 PM YARN SKEINS EXAMINER Temperature - - Respiratory Rate - - Oxygen Saturation 99% 01/02/2012 3:34 PM YARN SKEINS EXAMINER Inhaled Oxygen Concentration - - Weight 73.5 kg (162 lb) 01/02/2012 3:34 PM YARN SKEINS EXAMINER Height 166.4 cm (5' 5.5) 01/02/2012 3:34 PM YARN SKEINS EXAMINER Body Mass Index 26.55 01/02/2012 3:34 PM YARN SKEINS EXAMINER documented in this encounter Progress Notes Edgar [...] relapse, and establishing a solid recovery program. SKEINS EXAMINER documented in this encounter Nursing Notes 01/02/2012 3:45 PM CST >> FERN MARINELLI Zoe Jan 02, 2012 4:02 PM Script for subutex 8mg and subutex 2mg was faxed to the [facility]. >> GIOVANNI HART Zoe Jan 02, 2012 3:35 PM Patient presents [...] Luis Camara, [place] [address] [place] [address] (Wo rk) 01/21/2022 Office Visit Gastroenterology Juanis Levi [address] [facility] [address] Luis Fernando Miles MD 516 [facility] [address]A [place], [place] [address] documented as of this encounter Procedures Procedure Name Priority Date/Time Associated Diagnosis Comme nts DRUG ABUSE SCREEN 6 Routine 01/02/2012 4:01 PM Opiate dependen ce Results for this CHEM DEP URINE YARN SKEINS EXAMINER (H) procedure are in ([facility]) the results section. documented in this encounter Results Drug abuse screen 6 urine (chem dep) ([facility]) (01/02/2012 4:01 PM YARN SKEINS EXAMINER) Component Value Ref Test Analysis Performed At [facility] gist Range Method Time Signature Amphetamine Qual Negative NEG [facility] Urine Cutoff for a negative amphetamine is 500 ng/mL or less. [facility] Barbiturates Qual Negative NEG [facility] Urine Cutoff for a negative barbiturate is 200 ng/mL or less. [facility] Benzodiazepine Negative NEG [facility] Qual Urine Cutoff for a negative benzodiazepine is 200 ng/mL or less . [facility] Cannabinoids Qual Negative NEG [facility] Urine Cutoff for a negative cannabinoid is 50 ng/mL or less. [facility] Cocaine Qual Negative NEG [facility] Urine Cutoff for a negative cocaine is 300 ng/mL or less. [facility] Ethanol Qual Negative NEG [facility] Urine Cutoff for a negative urine ethanol is 50 mg/dL or less. [facility] Opiates Negative NEG [facility] Qualitative Urine Cutoff for a negative opiate is 300 ng/mL or less. [facility] Specimen Anatomical Collection Method Collection Time Receive d Time (Source) Location / / Volume Laterality Urine specimen 01/02/2012 4:01 PM 012 4:02 (specimen) YARN SKEINS EXAMINER PM YARN SKEINS EXAMINER Edgar Alfredo MD LAB - URINE ORDERABLES Performing Organization Address City/State/ZIP Code Phon e Number [facility] [address] [place] [address] [facility] documented in this encounter Visit Diagnoses Diagnosis Opiate dependence (H) - Primary Opioid type dependence, unspecified complicated by chemical depend ency, antepartum Drug dependence, antepartum Vitamin B12 deficiency (non anaemic) Other B-complex deficiencies documented in this encounter Care Teams Tester Equipment Relationship Specialty Start Date End Date None, Bfp PCP - General 03/02/99 04/12/12 documented as of this encounter
--- OUTSIDE RECORDS SUMMARY | 2021-11-28 13:57 | XMS_ITS | Encounter Summary ---
:1980 Author Organization [place] Address [address] [facility] [place] [address] Care Team Providers Name Role Phone None, Bfp Primary Care Provider Unavailable Reason for Visit Reason Onset Date Comments Refill Request 01/21/2012 Encounter Details Date Type Department Care Team Description 01/21/2012 Refill [facility] Nithya Alfredo MD Refill Request [address] [place] [address] [address] [phone] [place] [address] [phone] Social History Tobacco Use Types Packs/Day Years Used Date Smoking Tobacco: Every Day Cigarettes 0.5 10 Smokeless Tobacco: Never Alcohol Use Standard Drinks/Week Comments No 0 (1 standard drink = 0.6 oz pure alcoho l) Sex Assigned at Date Recorded Female 01/14/2020 10:57 AM CREATIVE SPECIALIST documented as of this encounter Miscellaneous Notes Telephone Encounter - Sintia Colon - 01/21/2012 1:53 PM CST Please see telephone encounter from 01/21/2012. PA is being submitted to [facility], as [facility] has denied PA its not the patient's insurance. Sintia Colon RN TIVE SPECIALIST Telephone Encounter - Sintia Colon - 01/21/2012 10:07 AM CST PA is being requesting for subutex. Patient was on suboxone, is now so needs to be on subutex. PA faxed. Sintia Colon RN TIVE SPECIALIST documented in this encounter Plan of Treatment Upcoming Encounters Date Type Specialty Care Team Description 11/29/2021 Office Visit Wound Care Luis Camara DPM [address] [place], [place] [phone] (Wo rk) 01/21/2022 Office Visit Gastroenterology Juanis Levi [address] [place] [address] Luis Fernando Miles MD [address] [facility] [address] [place], [place] [address] documented as of this encounter Visit Diagnoses Not on filedocumented in this encounter Care Teams Rabble Furnace Tender Relationship Specialty Start Date End Date None, Bfp PCP - General 03/02/99 04/12/12 documented as of this encounter
--- OUTSIDE RECORDS SUMMARY | 2021-11-28 13:57 | XMS_ITS | Encounter Summary ---
:1980 Author Organization [place] Address [facility] [place] [address] Care Team Providers Name Role Phone None, Bfp Primary Care Provider Unavailable Reason for Visit Reason Comments RECHECK please ask about current PAP date Recheck Medication Encounter Details Date Type Department Care Team Description 11/07/2011 Office Visit [facility] Edgar Alfredo de pendence (H) (Primary Dx); Clinic Ashly Gauthier MD Moderate major depression (H) [address] 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 >> ROSALINE VAZQUEZ Zoe Nov 07, 2011 11:42 AM Patient presents [...] completed using cuff size: regular Rosaline Vazquez COMMERCIAL CARPENTER documented in this encounter Plan of Treatment Upcoming Encounters Date Type Specialty Care Team Description 11/29/2021 Office Visit Wound Care Luis Camara, [place] [address] [place] [address] (Wo rk) 01/21/2022 Office Visit Gastroenterology Amita, Juanis M [address] [place] [phone] Luis Fernando Miles MD 6 [facility] [address] [place] [address] documented as of this encounter Visit Diagnoses Diagnosis Opiate dependence (H) - Primary Opioid type dependence, unspecified Moderate major depression (H) Major depressive disorder, single episod e, moderate documented in this encounter Care Teams Domestic Violence Advocate Relationship Specialty Start Date End Date None, Bfp PCP - General 03/02/99 04/12/12 documented as of this encounter
--- OUTSIDE RECORDS SUMMARY | 2021-11-28 13:57 | XMS_ITS | Encounter Summary ---
:1980 Author Organization [place] Address [facility] [place] [address] Care Team Providers Name Role Phone None, Bfp Primary Care Provider Unavailable Edgar Alfredo MD Primary Care Provider Reason for Visit Reason Onset Date Comments Health Maintenance 10/28/2011 LDL goal Encounter Details Date Type Department Care Team Description 10/28/2011 Telephone [facility] Edgar Alfredo Hea lt Maintenance (LDL Clinic Mart goal ) [address] [facility] [address] [place] [address] [address] [place] [phone] (Wo rk) Social History Tobacco Use Types Packs/Day Years Used Date Smoking Tobacco: Every Day Cigarettes 0.5 10 Smokeless Tobacco: Never Alcohol Use Standard Drinks/Week Comments No 0 (1 standard drink = 0.6 oz pure alcoho l) Sex Assigned at Date Recorded Female 01/14/2020 10:57 AM NAIL TECH documented as of this encounter Miscellaneous Notes Telephone Encounter - Marycarmen Spence - 10/28/2011 3:45 PM CDT Per quality measure review, please add an LDL goal to this patient's current problem list. Marycarmen Spence RN documented in this encounter Plan of Treatment Upcoming Encounters Date Type Specialty Care Team Description 11/29/2021 Office Visit Wound Care Luis Camara DPM [address] [facility] [address] (Wo rk) 01/21/2022 Office Visit Gastroenterology Juanis Levi [address] [place] [address] Luis Fernando Miles MD 516 [facility] [place], [place] [phone] documented as of this encounter Visit Diagnoses Not on filedocumented in this encounter Care Teams Digital Marketing Executive Relationship Specialty Start Date End Date None, Bfp PCP - General 03/02/99 04/12/12 Edgar Alfredo MD PCP - General Family Practice 04/13/12 08/11/14 [address] [facility] [address] [place] [phone] documented as of this encounter
--- OUTSIDE RECORDS SUMMARY | 2021-11-28 13:57 | XMS_ITS | Encounter Summary ---
:1980 Author Organization [place] Address [address] [facility] [place] [address] Care Team Providers Name Role Phone None, Bfp Primary Care Provider Unavailable Encounter Details Date Type Department Care Team Description 01/08/2005 Results Only [facility] Edgar Alfredo MD [facility] Radiology Results [address] [place] [address] [place] [address] (Wo rk) Social History Tobacco Use Types Packs/Day Years Used Date Smoking Tobacco: Never Assessed Sex Assigned at Date Recorded Female 01/14/2020 10:57 AM CLINICAL ACCOUNT MANAGER documented as of this encounter Plan of Treatment Upcoming Encounters Date Type Specialty Care Team Description 11/29/2021 Office Visit Wound Care Luis Camara DPM 909 [place] [address] (Wo rk) 01/21/2022 Office Visit Gastroenterology Juanis Levi [address] [place] [address] Luis Fernando Miles MD 516 [facility] [address] [place], [place] [phone] documented as of this encounter Procedures Procedure Name Priority Date/Time Associated Diagnosis Comme [facility] OB 2-3 Routine 01/08/2005 12:11 PM Results for this TRIMESTER CLINICAL ACCOUNT MANAGER procedure are i n MAT/, SINGLE the result s GESTATION section. documented in this encounter Results SONO COMPLETE (01/08/2005 12:11 PM CLINICAL ACCOUNT MANAGER) Anatomical Region Laterality Modality Other Specimen (Source) Anatomical Collection Method Collection Time Re ceived Time Location / / Volume Laterality 01/08/2005 12:11 PM CLINICAL ACCOUNT MANAGER Impressions 01/12/2005 7:22 AM CLINICAL ACCOUNT MANAGER ?? OBSTETRIC ULTRASOUND, SECOND/THIRD TRIME STER ?? CLINICAL HISTORY: ??The patient is withd alisson. ?? survey. ?? FINDINGS: ??Single living fetus seen in longitudinal lie and cephalic presentation. ??Cardiac activity 130 cici ts per minute and regular. ?? Placenta anterior without evidence of pr evia or abruption. ??Amniotic fluid volume normal with four-quadrant i ndex of 13. ??Umbilical artery nzuedqdp-sy-nozsyjvfo ratio of 4.2 to 1, which is [...] weeks. Edgar Alfredo MD SPECIAL IMAGING STUDIES documented in this encounter Visit Diagnoses Not on filedocumented in this encounter Care Teams Legal Receptionist Relationship Specialty Start Date End Date None, Bfp PCP - General 03/02/99 04/12/12 documented as of this encounter
--- OUTSIDE RECORDS SUMMARY | 2021-11-28 13:57 | XMS_ITS | Encounter Summary ---
:1980 Author Organization [place] Address [facility] [facility] [place] [address] Care Team Providers Name Role Phone None, Bfp Primary Care Provider Unavailable Reason for Visit Reason Onset Date Comments RECHECK please ask about rec ent PAP date Erroneous encounter-disregard 02/07/2012 Encounter Details Date Type Department Care Team Description 02/06/2012 Office Visit [facility] Edgar Alfredo ERRONEOUS Clinic Ashly Gauthier MD ENCOUNTER--DISREGARD [address] [facility] [address] [facility] (Primary Dx) [address] [place] [phone] Social History Tobacco Use Types Packs/Day Years Used Date Smoking Tobacco: Every Day Cigarettes 0.5 10 Smokeless Tobacco: Never Alcohol Use Standard Drinks/Week Comments No 0 (1 standard drink = 0.6 oz pure alcoho l) Sex Assigned at Date Recorded Female 01/14/2020 10:57 AM TAX ATTORNEY documented as of this encounter Progress Notes Edgar Alfredo MD - 02/07/2012 9:51 PM CST This encounter was opened in error. Please disregard. ATTORNEY documented in this encounter Plan of Treatment Upcoming Encounters Date Type Specialty Care Team Description 11/29/2021 Office Visit Wound Care Luis Camara [place] [address] [place], [place] [address] (Wo rk) 01/21/2022 Office Visit Gastroenterology Juanis Levi [address] [place] [phone] Luis Fernando Miles MD 516 [facility] [address] [place], [place] [address] documented as of this encounter Visit Diagnoses Diagnosis ERRONEOUS ENCOUNTER--DISREGARD - Primary documented in this encounter Care Teams Dental Detail Representative Relationship Specialty Start Date End Date None, Bfp PCP - General 03/02/99 04/12/12 documented as of this encounter
--- OUTSIDE RECORDS SUMMARY | 2021-11-28 13:57 | XMS_ITS | Encounter Summary ---
:1980 Author Organization [place] Address [address] [place] [address] Care Team Providers Name Role Phone None, Bfp Primary Care Provider Unavailable Reason for Visit Reason Comments Recheck Medication please ask about recent PAP date- PCP patient needs LDL goal noted Encounter Details Date Type Department Care Team Description 10/24/2011 Office Visit [facility] Edgar Alfredo (H) Clinic Ashly Gauthier MD (Primary Dx) [address] [facility] [address] [facility] [address] [place] [phone] Social History Tobacco Use Types Packs/Day Years Used Date Smoking Tobacco: Every Day Cigarettes 0.5 10 Smokeless Tobacco: Never Alcohol Use Standard Drinks/Week Comments No 0 (1 standard drink = 0.6 oz pure alcoho l) Sex Assigned at Date Recorded Female 01/14/2020 10:57 AM CUTTER INSPECTOR documented as of this encounter Last Filed [...] to receive sub maintenance Was going to [facility] and was on 24 mg Subutex daily Discharged because she missed appointment Has been getting from friends - 16 mg per day Discussed lower dose Drug screen next visit Had delivery 1 yr ago while on Subutex 24 mg Infant of SIDS Jan 2012 PMH: reviewed Social [...] Script for suboxone was faxed to the [facility] >> BRYNN HAMMOND FriOct 24, 2011 [...] Visit Wound Care Luis Camara DPM [address] [place], [place] [phone] (Wo rk) 01/21/2022 Office Visit Gastroenterology Juanis Levi [address] [place] [address] Luis Fernando Miles MD [address] [address] documented as of this encounter Visit Diagnoses Diagnosis Opiate dependence (H) - Primary Opioid type dependence, unspecified documented in this encounter Care Teams Machine Sander Relationship Specialty Start Date End Date None, Bfp PCP - General 03/02/99 04/12/12 documented as of this encounter
--- OUTSIDE RECORDS SUMMARY | 2021-11-28 13:57 | XMS_ITS | Encounter Summary ---
:1980 Author Organization [place] Address [address] [facility] [place] [address] Care Team Providers Name Role Phone None, Bfp Primary Care Provider Unavailable Encounter Details Date Type Department Care Team Description 04/10/2010 Historic Results INTERFACED REPORT No Ref-Primar y, Physician Social History Tobacco Use Types Packs/Day Years Used Date Smoking Tobacco: Never Assessed Sex Assigned at Date Recorded Female 01/14/2020 10:57 AM MANAGER AMBULATORY documented as of this encounter Plan of Treatment Upcoming Encounters Date Type Specialty Care Team Description 11/29/2021 Office Visit Wound Care Luis Camara, [place] [address] [place], [place] [address] (Wo rk) 01/21/2022 Office Visit Gastroenterology Juanis Levi [address] [place] [phone] Luis Fernando Miles MD [address] [address] documented as of this encounter Procedures Procedure Name Priority Date/Time Associated Comments Diagnosis WET PREPARATION Routine 04/10/2010 11:55 Results for this PM MANAGER AMBULATORY procedure are i n the results section. NEISSERIA GONORRHOEAE Routine 04/10/2010 11:55 Re sults for this PCR PM MANAGER AMBULATORY procedure are i n the results section. CHLAMYDIA TRACHOMATIS Routine 04/10/2010 11:55 Re sults for this PCR PM MANAGER AMBULATORY procedure are i n the results section. CBC WITH PLATELETS & STAT 04/10/2010 11:20 Res ults for this DIFFERENTIAL PM MANAGER AMBULATORY procedure are i n the results section. BILIRUBIN TOTAL Routine 04/10/2010 11:20 Results for this PM MANAGER AMBULATORY procedure are i n the results section. AST Routine 04/10/2010 11:20 Results for this PM MANAGER AMBULATORY procedure are i n the results section. ALT Routine 04/10/2010 11:20 Results for this PM MANAGER AMBULATORY procedure are i n the results section. ALKALINE PHOSPHATASE Routine 04/10/2010 11:20 Res ults for this PM MANAGER AMBULATORY procedure are i n the results section. BASIC METABOLIC PANEL STAT 04/10/2010 11:20 Re sults for this PM MANAGER AMBULATORY procedure are i n the results section. ROUTINE UA WITH STAT 04/10/2010 10:14 Results for this MICROSCOPIC PM MANAGER AMBULATORY procedure are i n the results section. URINE CULTURE Routine 04/10/2010 10:14 Results fo r this PM MANAGER AMBULATORY procedure are i n the results section. documented in this encounter Results Chlamydia trachomatis PCR (04/10/2010 11:55 PM MANAGER AMBULATORY) Component Value Ref Test Analysis Performed At MOgene Range Method Time Signature Specimen Cervical MISYS Description Chlamydia Negative for C. MISYS Trachomatis PCR trachomatis rRNA by attendant arcade mediated amplification. Comment: A negative result by attendant arcade medi ated amplification does not preclude the presence of C. trachomatis infection be cause results are dependent on proper and adequate collection, absence of inh ibitors, and sufficient rRNA to be detected. Specimen Anatomical Collection Method Collection Time Receive d Time (Source) Location / / Volume Laterality 04/10/2010 11:55 04/11/2010 PM MANAGER AMBULATORY 12:10 AM MANAGER AMBULATORY Physician No Ref-Primary LAB - MICRO GENERAL ORDERABL ES Performing Organization Address City/State/ZIP Code Phon e Number MISYS Neisseria gonorrhoeae PCR (04/10/2010 11:55 PM MANAGER AMBULATORY[facility] Method Time Signature Specimen Cervical MISYS Descrip N Gonorrhea Negative for N. MISYS PCR gonorrhoeae rRNA by attendant arcade mediated amplification. Comment: A negative result by attendant arcade medi ated amplification does not preclude the presence of N. gonorrhoeae infection be cause results are dependent on proper and adequate collection, absence of inh ibitors, and sufficient rRNA to be detected. Specimen Anatomical Collection Method Collection Time Receive d Time (Source) Location / / Volume Laterality 04/10/2010 11:55 04/11/2010 PM MANAGER AMBULATORY 12:10 AM MANAGER AMBULATORY Physician No Ref-Primary LAB - MICRO GENERAL ORDERABL ES Performing Organization Address City/State/ZIP Code Phon e Number MISYS Wet prep (04/10/2010 11:55 PM MANAGER AMBULATORY) [facility] Method Time Signature Specimen Vagina MISYS Description Micro Report FINAL MISYS Status 04/11/2010 Wet Prep Moderate MISYS PMNs seen Comment: No yeast seen No Trichomonas seen Clue cells seen Specimen Anatomical Collection Method Collection Time Receive d Time (Source) Location / / Volume Laterality 04/10/2010 11:55 04/11/2010 PM MANAGER AMBULATORY 12:10 AM MANAGER AMBULATORY Physician No Ref-Primary LAB - MICRO GENERAL ORDERABL ES Performing Organization Address City/State/ZIP Code Phon e Number MISYS (ABNORMAL) CBC with platelets differential (04/10/2010 11:20 PM MANAGER AMBULATORY) [facility] Method Time Signature MCV 87 78 - [...] / Volume Laterality 04/10/2010 11:20 04/10/2010 PM MANAGER AMBULATORY 11:03 PM MANAGER AMBULATORY Breanna Main MD LAB - BLOOD ORDERABLES Performing Organization Address City/State/ZIP Code Phon e Number MISYS Basic metabolic panel (04/10/2010 11:20 PM MANAGER AMBULATORY) P athologist Signature Sodium 135 133 - 144 [...] / Volume Laterality 04/10/2010 11:20 04/10/2010 PM MANAGER AMBULATORY 11:03 PM MANAGER AMBULATORY Breanna Main MD LAB - BLOOD ORDERABLES Performing Organization Address City/State/ZIP Code Phon e Number MISYS Alkaline phosphatase (04/10/2010 11:20 PM MANAGER AMBULATORY) athologist Signature Alkaline 55 40 - 150 MISYS Phosphatase U/L Specimen Anatomical Collection Method Collection Time Receive d Time (Source) Location / / Volume Laterality 04/10/2010 11:20 04/11/2010 PM MANAGER AMBULATORY 12:08 AM MANAGER AMBULATORY Breanna Main MD LAB - BLOOD ORDERABLES Performing Organization Address City/State/ZIP Code Phon e Number MISYS ALT (04/10/2010 11:20 PM MANAGER AMBULATORY) P athologist Signature ALT 41 0 - 50 U/L MISYS Specimen Anatomical Collection Method Collection Time Receive d Time (Source) Location / / Volume Laterality 04/10/2010 11:20 04/11/2010 PM MANAGER AMBULATORY 12:08 AM MANAGER AMBULATORY Breanna Main MD LAB - BLOOD ORDERABLES Performing Organization Address City/[facility]/ZIP Code Phon e Number MISYS AST (04/10/2010 11:20 PM MANAGER AMBULATORY) athologist Signature AST 31 0 - 45 U/L MISYS Specimen Anatomical Collection Method Collection Time Receive d Time (Source) Location / / Volume Laterality 04/10/2010 11:20 04/11/2010 PM MANAGER AMBULATORY 12:08 AM MANAGER AMBULATORY Breanna Main MD LAB - BLOOD ORDERABLES Performing Organization Address [facility]/ZIP Code Phon e Number MISYS Bilirubin total (04/10/2010 11:20 PM MANAGER AMBULATORY) athologist Signature Bilirubin Total 0.4 0.2 - 1.3 MISYS mg/dL Specimen Anatomical Collection Method Collection Time Receive d Time (Source) Location / / Volume Laterality 04/10/2010 11:20 04/11/2010 PM MANAGER AMBULATORY 12:08 AM MANAGER AMBULATORY Breanna Main MD LAB - BLOOD ORDERABLES Performing Organization Address City/[facility]/ZIP Code Phon e Number MISYS (ABNORMAL) Routine UA with microscopic (04/10/2010 10:14 PM MANAGER AMBULATORY) [facility] Method Time Signature Source Midstream MISYS Urine Color Urine Yellow MISYS Appearance Urine Slightly MISYS Cloudy Glucose Urine Negative NEG mg/dL MISYS Bilirubin Urine Negative NEG MISYS Ketones Urine Negative NEG mg/dL MISYS Specific [place] 1.019 1.003 - MISYS Urine 1.035 Blood [...] / Volume Laterality 04/10/2010 10:14 04/10/2010 PM MANAGER AMBULATORY 10:17 PM MANAGER AMBULATORY Breanna Main MD LAB - URINE ORDERABLES Performing Organization Address City/State/ZIP Code Phon e Number MISYS Urine culture (04/10/2010 10:14 PM MANAGER AMBULATORY) [facility] Method Time Signature Specimen Midstream MISYS Description Urine Culture Micro No growth MISYS Micro Report FINAL MISYS Status 04/12/2010 Specimen Anatomical Collection Method Collection Time Receive d Time (Source) Location / / Volume Laterality 04/10/2010 10:14 04/10/2010 PM MANAGER AMBULATORY 10:37 PM MANAGER AMBULATORY Physician No Ref-Primary LAB - MICRO GENERAL ORDERABL ES Performing Organization Address City/[facility] Phon e Number MISYS documented in this encounter Visit Diagnoses Not on filedocumented in this encounter Care Teams Deckhand Maintenance Relationship Specialty Start Date End Date None, Bfp PCP - General 03/02/99 04/12/12 documented as of this encounter
--- OUTSIDE RECORDS SUMMARY | 2021-11-28 13:57 | XMS_ITS | Encounter Summary ---
:1980 Author Organization [place] Address [facility] access hospital0 [facility] [place] [address] Care Team Providers Name Role Phone None, Bfp Primary Care Provider Unavailable Reason for Visit Reason Onset Date Comments Medication Request 02/21/2012 Encounter Details Date Type Department Care Team Description 02/21/2012 Telephone [facility] Edgar Alfredo Ma rk, Medication Request Ashly VÁSQUEZ [address] [place] [address] [place] [address] [address] [place] [phone] (Wo rk) Social History Tobacco Use Types Packs/Day Years Used Date Smoking Tobacco: Every Day Cigarettes 0.5 10 Smokeless Tobacco: Never Alcohol Use Standard Drinks/Week Comments No 0 (1 standard drink = 0.6 oz pure alcoho l) Sex Assigned at Date Recorded Female 01/14/2020 10:57 AM COREMAKER BENCH documented as of this encounter Miscellaneous Notes Telephone Encounter - Madonna Cody - 02/21/2012 3:38 PM CST Script was faxed to the [facility]. MAKER BENCH Telephone Encounter - Edgar Alfredo MD - 02/21/2012 3:26 PM CST 6 tabs ordered MAKER BENCH Telephone Encounter - Chapis Diaz - 02/21/2012 2:38 PM CST Not on nursing protocol, unable to fill medication. Please fill if appropriate. Chapis Diaz RN MAKER BENCH Telephone Encounter - Madonna Cody - 02/21/2012 2:28 PM CST Stephani only has one subutex left and she made an appointment with you for next and wondering if you could refill her prescription until she comes in. She said that its the Cub that is in her file. If any questions she can be reached at [phone]. MAKER BENCH documented in this encounter Plan of Treatment Upcoming Encounters Date Type Specialty Care Team Description 11/29/2021 Office Visit Wound Care Luis Camara DPM [address] [place], [place] [address] (Wo rk) 01/21/2022 Office Visit Gastroenterology Juanis Levi [address] [place] [address] Luis Fernando Miles MD [address] [phone] documented as of this encounter Visit Diagnoses Diagnosis Opiate dependence (H) - Primary Opioid type dependence, unspecified documented in this encounter Care Teams Animal Nutrition Consultant Relationship Specialty Start Date End Date None, Bfp PCP - General 03/02/99 04/12/12 documented as of this encounter
--- OUTSIDE RECORDS SUMMARY | 2021-11-28 13:57 | XMS_ITS | Encounter Summary ---
:1980 Author Organization [place] Address [address] [facility] [place] [address] Care Team Providers Name Role Phone None, Bfp Primary Care Provider Unavailable Reason for Visit Reason Onset Date Comments Call Back 12/26/2011 Encounter Details Date Type Department Care Team Description 12/26/[address] [facility] Nithya Alfredo MD Call Back [address] [place] [address] [address] [phone] [place] [phone] Social History Tobacco Use Types Packs/Day Years Used Date Smoking Tobacco: Every Day Cigarettes 0.5 10 Smokeless Tobacco: Never Alcohol Use Standard Drinks/Week Comments No 0 (1 standard drink = 0.6 oz pure alcoho l) Sex Assigned at Date Recorded Female 01/14/2020 10:57 AM GRAIN ELEVATOR MAN documented as of this encounter Miscellaneous Notes Telephone Encounter - Edgar Alfredo MD - 12/26/2011 10:10 AM CST Will switch to Subutex at lower dose next week N ELEVATOR MAN Telephone Encounter - Tigist Fraga - 12/26/2011 8:17 AM CST Incoming call from pt's partner Woody, pt also came on the phone. Pt gave call back # [phone]. Woody initially asked to speak to Dr Alfredo, stated it was a life threatening situation re pt's currentpregnancy, pt came on phone and asked to make an appt with Dr Alfredo, first available is 01-01, pt states she will be out of pills by then, pt wanting call back from Dr Alfredo. N ELEVATOR MAN documented in this encounter Plan of Treatment Upcoming Encounters Date Type Specialty Care Team Description 11/29/2021 Office Visit Wound Care Luis Camara, [place] [address] [place] [address] (Wo rk) 01/21/2022 Office Visit Gastroenterology Juanis Levi 2450 [place] [address] Luis Fernando Miles MD 6 [facility] [address]A [place] [address] documented as of this encounter Visit Diagnoses Not on filedocumented in this encounter Care Teams Manager Search Engine Relationship Specialty Start Date End Date None, Bfp PCP - General 03/02/99 04/12/12 documented as of this encounter
--- OUTSIDE RECORDS SUMMARY | 2021-11-28 13:57 | XMS_ITS | Encounter Summary ---
:1980 Author Organization [place] Address [facility] [place] [address] Care Team Providers Name Role Phone None, Bfp Primary Care Provider Unavailable Encounter Details Date Type Department Care Team Description 01/16/2005 Operative Report Mal Dupree MD (Intermediate Manager) [facility] [address] [place], [place] [address] (Wo rk) Social History Tobacco Use Types Packs/Day Years Used Date Smoking Tobacco: Never Assessed Sex Assigned at Date Recorded Female 01/14/2020 10:57 AM CPA TAX documented as of this encounter Progress Notes Radames Dupree - 01/16/2005 11:59 PM CPA TAX PREOPERATIVE DIAGNOSIS: Right calcaneus fracture at the calcaneocuboid joint. POSTOPERATIVE DIAGNOSIS: Right calcaneus fracture at the calcaneocuboid joint. NAME OF OPERATION: Primary fusion of the right calcaneocuboid joint with bone grafting. SURGEON: Radames Dupree MD. HEAD OF LOSS PREVENTION: Carmen Winston Environmental Engineer Scientist. OPERATIVE PROCEDURE: The patient was brought to [...] entire plate on. This was removed with [employer] matrix plater. The plate was then applied to the [...] by: RADAMES DUPREE MD MT: [email or web address] Document: [id number] LCN: [id number] DSC: 01/16/2005 Name: MR#: : Procedure Date: STEPHANI MCCORMICK -66 1980 01/16/2005 OPERATIVE REPORT Page 2 of 2 TAX documented in this encounter Plan of Treatment Upcoming Encounters Date Type Specialty Care Team Description 11/29/2021 Office Visit Wound Care Luis Camara DPM [address] [place], [place] [phone] (Wo rk) 01/21/2022 Office Visit Gastroenterology Juanis Levi [address] [place] [address] Luis Fernando Miles MD 516 [facility] [address] [place] [address] documented as of this encounter Visit Diagnoses Not on filedocumented in this encounter Care Teams Patient Financial Services Specialist Relationship Specialty Start Date End Date None, Bfp PCP - General 03/02/99 04/12/12 documented as of this encounter
--- OUTSIDE RECORDS SUMMARY | 2021-11-28 13:57 | XMS_ITS | Encounter Summary ---
:1980 Author Organization [place] Address [facility] [place] [address] Care Team Providers Name Role Phone None, Bfp Primary Care Provider Unavailable Reason for Visit Reason Onset Date Comments Medication Request 11/04/2011 Encounter Details Date Type Department Care Team Description 11/04/2011 Telephone [facility] Edgar Alfredo Ma, Medication Request Ashly VÁSQUEZ [address] [place] [address] [place] [address] [address] [place] [address] (Reinaldo rk) Social History Tobacco Use Types Packs/Day Years Used Date Smoking Tobacco: Every Day Cigarettes 0.5 10 Smokeless Tobacco: Never Alcohol Use Standard Drinks/Week Comments No 0 (1 standard drink = 0.6 oz pure alcoho l) Sex Assigned at Date Recorded Female 01/14/2020 10:57 AM DEBT COUNSELOR documented as of this encounter Miscellaneous Notes Telephone Encounter - Madonna Cody - 11/04/2011 1:43 PM CDT Script for suboxone was faxed to the [facility] in [place]. Telephone Encounter - Edgar Alfredo MD - [...] until . She can be reached at [phone]. documented in this encounter Plan of Treatment Upcoming Encounters Date Type Specialty Care Team Description 11/29/2021 Office Visit Wound Care Luis Camara DPM [address] [place], [place] [address] (Wo rk) 01/21/2022 Office Visit Gastroenterology Juanis Levi [address] [place] [address] Luis Fernando Miles MD [address] [id number] documented as of this encounter Visit Diagnoses Diagnosis Opiate dependence (H) - Primary Opioid type dependence, unspecified documented in this encounter Care Teams Manager Math Relationship Specialty Start Date End Date None, Bfp PCP - General 03/02/99 04/12/12 documented as of this encounter
--- OUTSIDE RECORDS SUMMARY | 2021-11-28 13:57 | XMS_ITS | Encounter Summary ---
:1980 Author Organization [place] Address [address] [place] [address]. [place] [address] Care Team Providers Name Role Phone None, Bfp Primary Care Provider Unavailable Encounter Details Date Type Department Care Team Description 08/30/2006 Results Only [facility] Sulma Barillas MD [address] [place] [address] (Wo rk) Social History Tobacco Use Types Packs/Day Years Used Date Smoking Tobacco: Never Assessed Sex Assigned at Date Recorded Female 01/14/2020 10:57 AM PNEUDRAULIC SYSTEMS MECHANIC documented as of this encounter Plan of Treatment Upcoming Encounters Date Type Specialty Care Team Description 11/29/2021 Office Visit Wound Care Luis Camara DPM [address] [place] [address] (Wo rk) 01/21/2022 Office Visit Gastroenterology Juanis Levi [address] [place] [address] Luis Fernando Miles MD 516 [facility] [place] [address] documented as of this encounter Procedures Procedure Name Priority Date/Time Associated Diagnosis Comme nts ZZC LT X-RAY KNEE 1 Routine 08/30/2006 3:28 PM Re sults for this OR 2 VIEW CDT procedure are i n the results section. Z RT X-RAY KNEE 1 Routine 08/30/2006 3:27 PM Re sults for this OR 2 VIEW CDT procedure are i n the results section. documented in this encounter Results LT X-RAY KNEE 1 OR 2 VIEW (08/30/2006 3:28 PM CDT) Anatomical Region Laterality Modality Other Specimen (Source) Anatomical Collection Method Collection Time Re ceived Time Location / / Volume Laterality 08/30/2006 3:28 PM CDT Impressions 08/31/2006 11:59 AM CDT Two views of the bilateral knees, 007. COMPARISON: None. HISTORY: Knee pain. FINDINGS: Joint spaces are well-maintain ed within the bilateral knees. No bony abnormality is identified. There are no joint effusions. IMPRESSION: Normal knees. I have personally reviewed the image and initial interpretation and agree with the findings. Inder Barillas MD GENERAL IMAGING RT X-RAY KNEE 1 OR 2 VIEW (08/30/2006 3:27 PM CDT) Anatomical Region Laterality Modality Other Specimen (Source) Anatomical Collection Method Collection Time Re ceived Time Location / / Volume Laterality 08/30/2006 3:27 PM CDT Impressions 08/31/2006 11:59 AM CDT Two views of the bilateral knees, 007. COMPARISON: None. HISTORY: Knee pain. FINDINGS: Joint spaces are well-maintain ed within the bilateral knees. No bony abnormality is identified. There are no joint effusions. IMPRESSION: Normal knees. I have personally reviewed the image and initial interpretation and agree with the findings. Inder Barillas MD GENERAL IMAGING documented in this encounter Visit Diagnoses Not on filedocumented in this encounter Care Teams Zigzag Appliquer Relationship Specialty Start Date End Date None, Bfp PCP - General 03/02/99 04/12/12 documented as of this encounter
--- OUTSIDE RECORDS SUMMARY | 2021-11-28 13:57 | XMS_ITS | Encounter Summary ---
:1980 Author Organization [place] Address [address] [place] [address] Care Team Providers Name Role Phone None, Bfp Primary Care Provider Unavailable Reason for Visit Reason Comments RECHECK Encounter Details Date Type Department Care Team Description 12/05/[address] [facility] Edgar Alfredo (H) Clinic Ashly Gauthier MD (Primary Dx) [address] [facility] [place] [address] [address] [place] [address] Social History Tobacco Use Types Packs/Day Years Used Date Smoking Tobacco: Every Day Cigarettes 0.5 10 Smokeless Tobacco: Never Alcohol Use Standard Drinks/Week Comments No 0 (1 standard drink = 0.6 oz pure alcoho l) Sex Assigned at Date Recorded Female 01/14/2020 10:57 AM COPY MESSENGER documented as of this encounter Last Filed [...] Nursing Notes 12/05/2011 1:15 PM CDT >> FENR MARINELLI Zoe Dec 05, 2011 2:05 PM Script for suboxone was faxed to the [facility] >> GIOVANNI HART [facility] Dec 05, 2011 1:45 PM Patient presents with: RECHECK Initial BP 144/58 Pulse 90 Ht 5' 5.5 (1.664 m) Wt 171 lb (77.565 kg) BMI 28.02 kg/m2 [id number]% Estimated Body mass index is 28.02 kg/(m^2) as calculated from the following: Height as of this encounter: 5' 5.5(1.664 m). Weight as of this encounter: 171 lb(77.565 kg).. BP completed using cuff size: regular Giovanni Hart MA documented in this encounter Plan of Treatment Upcoming Encounters Date Type Specialty Care Team Description 11/29/2021 Office Visit Wound Care Luis Camara, [place] [address] [place] [address] (Wo rk) 01/21/2022 Office Visit Gastroenterology Juanis Levi [address] [place] [address] Luis Fernando Miles MD 516 [facility] [address] [place] [address] documented as of this encounter Visit Diagnoses Diagnosis Opiate dependence (H) - Primary Opioid type dependence, unspecified documented in this encounter Care Teams Auto Engine Mechanic Relationship Specialty Start Date End Date None, Bfp PCP - General 03/02/99 04/12/12 documented as of this encounter
--- OUTSIDE RECORDS SUMMARY | 2021-11-28 13:57 | XMS_ITS | Encounter Summary ---
:1980 Author Organization [place] Address [facility] [place] [address] Care Team Providers Name Role Phone None, Bfp Primary Care Provider Unavailable Encounter Details Date Type Department Care Team Description 11/30/2011 Abstract [facility] Edgar Alfredo [facility] Historical Records: Clinic [place] Notes [address] [facility] [address] [facility] [address] [place] [phone] (Wo rk) Social History Tobacco Use Types Packs/Day Years Used Date Smoking Tobacco: Every Day Cigarettes 0.5 10 Smokeless Tobacco: Never Alcohol Use Standard Drinks/Week Comments No 0 (1 standard drink = 0.6 oz pure alcoho l) Sex Assigned at Date Recorded Female 01/14/2020 10:57 AM FISHERIES INSPECTOR documented as of this encounter Plan of Treatment Upcoming Encounters Date Type Specialty Care Team Description 11/29/2021 Office Visit Wound Care Luis Camara DPM 9[address] [place] [address] (Wo rk) 01/21/2022 Office Visit Gastroenterology Juanis Levi [address] [place] [address] Luis Fernando Miles MD 6 [facility] [address] [place] [address] documented as of this encounter Procedures Procedure [...] on filedocumented in this encounter Care Teams General Accountant Relationship Specialty Start Date End Date None, Bfp PCP - General 03/02/99 04/12/12 documented as of this encounter
--- OUTSIDE RECORDS SUMMARY | 2021-11-28 13:57 | XMS_ITS | Encounter Summary ---
:1980 Author Organization [place] Address [address] [place] [address]. [place] [address] Care Team Providers Name Role Phone None, Bfp Primary Care Provider Unavailable Reason for Visit Reason Onset Date Comments Medication Request 10/15/2011 Encounter Details Date Type Department Care Team Description 10/15/2011 Telephone [facility] None, Bfp Medication Request [address] [place] [address] [address] [place] [phone] Social History Tobacco Use Types Packs/Day Years Used Date Smoking Tobacco: Never Assessed Sex Assigned at Date Recorded Female 01/14/2020 10:57 AM STONEMASON documented as of this encounter Miscellaneous Notes [...] records from previous MD Telephone Encounter - Chery Grante - 10/15/2011 1:37 PM CDT 1) Name of Med(s): Subutex 2) Current Dosage (if available): 24mg tabs 3) Pharmacy: [facility] in [facility] Pt calling- stated she spoke with previously [...] Oct 23 appt. Please contact pt at [phone] documented in this encounter Plan of Treatment Upcoming Encounters Date Type Specialty Care Team Description 11/29/2021 Office Visit Wound Care Luis Camara DPM [address] [place], [place] [address] (Wo rk) 01/21/2022 Office Visit Gastroenterology Juanis Levi [address] [place] [address] Luis Fernando Miles MD 516 [facility] 2A [place], [place] [address] documented as of this encounter Visit Diagnoses Not on filedocumented in this encounter Care Teams It Teacher Relationship Specialty Start Date End Date None, Bfp PCP - General 03/02/99 04/12/12 documented as of this encounter
--- OUTSIDE RECORDS SUMMARY | 2021-11-28 13:57 | XMS_ITS | Encounter Summary ---
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 She is otherwise unemployed. PHYSICAL EXAMINATION: VITAL [...] 06/01/2009 17:37 by SOLOMON RON MD MT: [id number] Name: STEPHANI MCCORMICK Account: [id number] : 1980 Visit Date: 05/23/2009 Document: [id number] documented in this encounter Plan of Treatment Upcoming Encounters Date Type Specialty Care Team Description 11/29/2021 Office Visit Wound Care Luis Camara DPM [address] [place], [place] [address] (Wo rk) 01/21/2022 Office Visit Gastroenterology Juanis Levi [address] [place] [phone] Luis Fernando Miles MD [address] [phone] documented as of this encounter Visit Diagnoses Not on filedocumented in this encounter Care Teams Plate Mill Mill Hand Relationship Specialty Start Date End Date None, Bfp PCP - General 03/02/99 04/12/12 documented as of this encounter
--- OUTSIDE RECORDS SUMMARY | 2021-11-28 13:57 | XMS_ITS | Encounter Summary ---
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 [address] [place], [place] [phone] documented as of this encounter Procedures Procedure Name Priority Date/Time Associated Diagnosis Comme nts US OB > 14 WEEKS Routine 04/11/2010 12:40 AM Resu lts for this KICK PRESS OPERATOR procedure are i n the results section. US ABDOMEN LIMITED Routine 04/11/2010 12:39 AM Re sults for this KICK PRESS OPERATOR procedure are i n the results section. documented in this encounter Results US OB 14 + weeks single or first gestation (04/11/2010 12:40 AM KICK PRESS OPERATOR) Anatomical Region Laterality Modality Abdomen/Pelvis Other Specimen (Source) Anatomical Collection Method Collection Time Re ceived Time Location / / Volume Laterality 04/11/2010 12:40 AM KICK PRESS OPERATOR Impressions 04/11/2010 5:37 PM KICK PRESS OPERATOR ULTRASOUND OBSTETRIC SECOND TO THIRD TRI MESTER [...] Dr. Leon on 04/11/2010 0050 hours. Breanna aMin MD IMG US ORDERABLES US Abdomen Limited* (04/11/2010 12:39 AM KICK PRESS OPERATOR) Anatomical Region Laterality Modality Abdomen/Pelvis Other Specimen (Source) Anatomical Collection Method Collection Time Re ceived Time Location / / Volume Laterality 04/11/2010 12:39 AM KICK PRESS OPERATOR Impressions 04/11/2010 8:42 PM KICK PRESS OPERATOR ULTRASOUND ABDOMEN LIMITED April 11, 2010 12:39:00 [...] ultrasound. Breanna Main MD IMG US ORDERABLES documented in this encounter Visit Diagnoses Not on filedocumented in this encounter Care Teams Morgue Keeper Relationship Specialty Start Date End Date None, Bfp PCP - General 03/02/99 04/12/12 documented as of this encounter
--- OUTSIDE RECORDS SUMMARY | 2021-11-28 13:57 | XMS_ITS | Encounter Summary ---
:1980 Author Organization [place] Address [facility] [place] [address] Care Team Providers Name Role Phone None, Bfp Primary Care Provider Unavailable Reason for Visit Reason Onset Date Comments RECHECK please ask about rec ent PAP date Erroneous encounter-disregard 02/27/2012 Encounter Details Date Type Department Care Team Description 02/27/2012 Office Visit [facility] Edgar Alfredo ERRONEOUS Clinic Ashly Gauthier MD ENCOUNTER--DISREGARD [address] [facility] [address] [facility] (Primary Dx) [address] [place] [address] Social History Tobacco Use Types Packs/Day Years Used Date Smoking Tobacco: Every Day Cigarettes 0.5 10 Smokeless Tobacco: Never Alcohol Use Standard Drinks/Week Comments No 0 (1 standard drink = 0.6 oz pure alcoho l) Sex Assigned at Date Recorded Female 01/14/2020 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 Please disregard. This encounter was opened in error. Please disregard. S AND RECREATION WORKER documented in this encounter Plan of Treatment Upcoming Encounters Date Type Specialty Care Team Description 11/29/2021 Office Visit Wound Care Luis Camara DPM [address] [place] [address] (Wo rk) 01/21/2022 Office Visit Gastroenterology Juanis Levi [address] [place] [address] Luis Fernando Miles MD 516 [facility] 2A [place], [place] [phone] documented as of this encounter Visit Diagnoses Diagnosis ERRONEOUS ENCOUNTER--DISREGARD - Primary documented in this encounter Care Teams Rice Dryer Mechanic Relationship Specialty Start Date End Date None, Bfp PCP - General 03/02/99 04/12/12 documented as of this encounter
--- OUTSIDE RECORDS SUMMARY | 2021-11-28 13:57 | XMS_ITS | Encounter Summary ---
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 documented as of this encounter Plan of Treatment Upcoming Encounters Date Type Specialty Care Team Description 11/29/2021 Office Visit Wound Care Luis Camara, [place] [address] [place], [place] [address] (Wo rk) 01/21/2022 Office Visit Gastroenterology Juanis Levi [address] [place] [address] Luis Fernando Miles MD 516 [facility] [place], [place] [address] documented as of this encounter Procedures Procedure [...] (FL, RH, SH) (05/24/2009 12:28 AM CDT) [facility] gist Method Time Signature Amphetamine Qual Negative NEG [...] on filedocumented in this encounter Care Teams Hearing Health Technician Relationship Specialty Start Date End Date None, Bfp PCP - General 03/02/99 04/12/12 documented as of this encounter
--- OUTSIDE RECORDS SUMMARY | 2021-11-28 13:57 | XMS_ITS | Encounter Summary ---
:1980 Author Organization [place] Address [facility] [place] [address] Care Team Providers Name Role Phone None, Bfp Primary Care Provider Unavailable Edgar Alfredo MD Primary Care Provider Reason for Visit Reason Onset Date Comments Medication Compliance Issues 01/02/2012 Subutex Encounter Details Date Type Department Care Team Description 01/02/2012 Telephone [facility] Edgar Alfredo, [facility] ication Compliance Clinic Ashly VÁSQUEZ Issues (Subutex) [address] [facility] [address] [place] [address] [address] [place] [address] [phone] (Wo rk) Social History Tobacco Use Types Packs/Day Years Used Date Smoking Tobacco: Every Day Cigarettes 0.5 10 Smokeless Tobacco: Never Alcohol Use Standard Drinks/Week Comments No 0 (1 standard drink = 0.6 oz pure alcoho l) Sex Assigned at Date Recorded Female 01/14/2020 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 Marycarmen Spence RN HER TRIMMER Telephone Encounter - Edgar Alfredo MD - 01/02/2012 4:49 PM CST Patient was on 12 mg Suboxone I am reducing dose to 10 mg for 2 weeks then 8 mg per day Since she is I have switched to Subutex HER TRIMMER Telephone Encounter - Alia Cunningham - 01/02/2012 4:45 PM CST Clinic Action Needed: Call pharmacy to verify medication and dosage. Reason for Call: To clarify med order for Subutex 8mg tab and 2mg tabs. Last prescribed Suboxone 8-2mg and was noted at last refill plans to decrease medication. Received order today for Subutex instead of Suboxone Patient Recommendations/Teaching:Message through [employer] and left message on phone. Teaching per [facility] Care guidelines. Routed to: Dr. Alfredo and nurse libby Cunningham RN [facility] [phone] HER TRIMMER documented in this encounter Plan of Treatment Upcoming Encounters Date Type Specialty Care Team Description 11/29/2021 Office Visit Wound Care Luis Camara DPM 909 [place] [address] (Wo rk) 01/21/2022 Office Visit Gastroenterology Juanis Levi 2450 [place] [address] Luis Fernando Miles MD 516 [facility] 2A [place], [place] [address] documented as of this encounter Visit Diagnoses Not on filedocumented in this encounter Care Teams Animal Technician Relationship Specialty Start Date End Date None, Bfp PCP - General 03/02/99 04/12/12 Edgar Alfredo MD PCP - General Family Practice 04/13/12 08/11/[address] [place] [address] 700 [place] [address] documented as of this encounter
--- OUTSIDE RECORDS SUMMARY | 2021-11-28 13:57 | XMS_ITS | Encounter Summary ---
:1980 Author Organization [place] Address 2450 [facility] [place] [address] Care Team Providers Name Role Phone None, Bfp Primary Care Provider Unavailable Reason for Visit Reason Onset Date Comments Refill Request 02/04/2012 Encounter Details Date Type Department Care Team Description 02/04/[address] 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 Tried to call the number listed below, mailbox full. Sintia Colon RN R DESIGNER Telephone Encounter - Tigist Fraga - 02/05/2012 12:41 PM CST Pt calling re rx, informed pt of refill, pt has appt tomorrow 02-06-12, pt would like to use [facility], , fax [phone]. R DESIGNER Telephone Encounter - Edgar Carbone MD - 02/05/2012 12:17 PM CST Refilled Needs appointment Need pharm # R DESIGNER Telephone Encounter - Victoria Grant - 02/05/2012 10:06 AM CST Pt requesting we send script to [facility] in [place] [address]. Please call pt at [phone] with any additional concerns/questions. Pt has been out of medication for 2 days. R DESIGNER Telephone Encounter - Chapis Diaz - 02/04/2012 2:52 PM CST Not on nursing protocol, unable to fill medication. Please fill if appropriate. Need pharmacy info-dr carbone not in office the rest of today or tomorrow. Chapis Diaz RN R DESIGNER Telephone Encounter - April Mccauley - 02/04/2012 2:21 PM CST Patient called in requesting a refill on her SUBUTEX prescription, patient can be reached via voicemail at phone number [phone] (home phone is voicemail only, please leave detailed voicemail here for pt to return call). R DESIGNER documented in this encounter Plan of Treatment Upcoming Encounters Date Type Specialty Care Team Description 11/29/2021 Office Visit Wound Care Luis Camara, [place] [address] [place] [address] (Wo rk) 01/21/2022 Office Visit Gastroenterology Juanis Levi 2450 [place] [address] Luis Fernando Miles MD 516 [facility] 2A [place], [place] [address] documented as of this encounter Visit Diagnoses Diagnosis Opiate dependence (H) - Primary Opioid type dependence, unspecified documented in this encounter Care Teams Cement Finisher Apprentice Relationship Specialty Start Date End Date None, Bfp PCP - General 03/02/99 04/12/12 documented as of this encounter
--- OUTSIDE RECORDS SUMMARY | 2021-11-28 13:57 | XMS_ITS | Encounter Summary ---
:1980 Author Organization [place] Address 2450 [facility] [place] [address] Care Team Providers Name Role Phone None, Bfp Primary Care Provider Unavailable Reason for Visit Reason Onset Date Comments Refill Request 01/20/2012 Encounter Details Date Type Department Care Team Description 01/20/2012 Refill [facility] Nithya Alfredo MD Refill Request [address] [place] [address] [address] [address] [place] [address] 4-[address] [phone] Social History Tobacco Use Types Packs/Day Years Used Date Smoking Tobacco: Every Day Cigarettes 0.5 10 Smokeless Tobacco: Never Alcohol Use Standard Drinks/Week Comments No 0 (1 standard drink = 0.6 oz pure alcoho l) Sex Assigned at Date Recorded Female 01/14/2020 10:57 AM DRINK MIXER documented as of this encounter Miscellaneous Notes Telephone Encounter - Marycarmen Spence - 01/20/2012 5:09 PM CST Scripts faxed. Marycarmen Spence RN K MIXER Telephone Encounter - Violeta Soto - 01/20/2012 4:56 PM CST Patient called - Please refill prescription to the [facility] on [place] [address]. Their number is [phone]. K MIXER Telephone Encounter - Sintia Colon - 01/20/2012 4:01 PM CST There are two different [facility] in [place]- patient was called to clarify which one she wants the medication sent to. Patient mother picked up the phone and stated she didn't know her number but she would try to contact patient to have her call the clinic. Until we hear from patient, the scripts are sitting in the top drawer of [employer]. Sintia Colon RN K MIXER Telephone Encounter - Edgar Alfredo MD - 01/20/2012 3:56 PM CST Ordered Need pharm info In fax box K MIXER Telephone Encounter - Tigist Fraga - 01/20/2012 3:43 PM CST Pt calling, states she is out of subutex, 8 mg and 2 mg as was only given 15 days worth at last refill. Before ending conversation, pt also stated she was out of Wellbutrin. [facility] [place]. Caller states she can be reached or messages left at [phone] which is her mother's phone number. Aware Dr Alfredo not scheduled in clinic this afternoon. K MIXER documented in this encounter Plan of Treatment Upcoming Encounters Date Type Specialty Care Team Description 11/29/2021 Office Visit Wound Care Luis Camara DPM [address] [place], [place] [address] (Wo rk) 01/21/2022 Office Visit Gastroenterology Juanis Levi 2450 [place] [address] Luis Fernando Miles MD [address] [place] [address] documented as of this encounter Visit Diagnoses Diagnosis Opiate dependence (H) - Primary Opioid type dependence, unspecified Moderate major depression (H) Major depressive disorder, single episod e, moderate documented in this encounter Care Teams Board Hammer Operator Relationship Specialty Start Date End Date None, Bfp PCP - General 03/02/99 04/12/12 documented as of this encounter
--- OUTSIDE RECORDS SUMMARY | 2021-11-28 13:57 | XMS_ITS | Encounter Summary ---
:1980 Author Organization [place] Address 2450 [facility] 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 Sintia Colon RN T PRESERVER Telephone Encounter - Chapis Diaz - 01/21/2012 2:25 PM CST Faxed Chapis Diaz RN T PRESERVER Telephone Encounter - Chapis Diaz - 01/21/2012 1:47 PM CST [facility] faxed buprenorphin 8 mg needs prior auth Id [id number] Insurance Hundo Flo/insurance representative--will fax us form we can write urgent on form and they will get to it immediately. Chapis Diaz RN T PRESERVER documented in this encounter Plan of Treatment Upcoming Encounters Date Type Specialty Care Team Description 11/29/2021 Office Visit Wound Care Luis Camara DPM 909 [place] [address] (Wo rk) 01/21/2022 Office Visit Gastroenterology Juanis Levi 2450 [place] [address] Luis Fernando Miles MD 516 [facility] 2A [place] [address] documented as of this encounter Visit Diagnoses Not on filedocumented in this encounter Care Teams Director Dance Relationship Specialty Start Date End Date None, Bfp PCP - General 03/02/99 04/12/12 documented as of this encounter
--- OUTSIDE RECORDS SUMMARY | 2021-11-28 13:57 | XMS_ITS | Encounter Summary ---
:1980 Author Organization [place] Address 2450 [facility] [place] [address] Care Team Providers Name Role Phone None, Bfp Primary Care Provider Unavailable Encounter Details Date Type Department Care Team Description 01/11/2005 Discharge Summary (Steam And Power Supervisor) Unknown , Provider Social History Tobacco Use Types Packs/Day Years Used Date Smoking Tobacco: Never Assessed Sex Assigned at Date Recorded Female 01/14/2020 10:57 AM SKIDDER documented as of this encounter Plan of Treatment Upcoming Encounters Date Type Specialty Care Team Description 11/29/2021 Office Visit Wound Care Luis Camara DPM 909 [place], [place] [address] (Wo rk) 01/21/2022 Office Visit Gastroenterology Juanis Levi 2450 [place] [phone] Luis Fernando Miles MD 516 [facility] [place], [place] [phone] documented as of this encounter Visit Diagnoses Not on filedocumented in this encounter Care Teams Medicare Compliance Auditor Relationship Specialty Start Date End Date None, Bfp PCP - General 03/02/99 04/12/12 documented as of this encounter
--- OUTSIDE RECORDS SUMMARY | 2021-11-28 13:57 | XMS_ITS | Encounter Summary ---
:1980 Author Organization [place] Address [facility] [place] [address] Care Team Providers Name Role Phone None, Bfp Primary Care Provider Unavailable Reason for Visit Reason Onset Date Comments RECHECK PAP date Erroneous encounter-disregard 03/30/2012 Encounter Details Date Type Department Care Team Description 03/30/2012 Office Visit [facility] Edgar Alfredo ERRONE[facility] Ashly Gauthier MD ENCOUNTER--DISREGARD 606 [address] [address] [place] [address] (Primary Dx) [address] [place] [phone] Social History Tobacco Use Types Packs/Day Years Used Date Smoking Tobacco: Every Day Cigarettes 0.5 10 Smokeless Tobacco: Never Alcohol Use Standard Drinks/Week Comments No 0 (1 standard drink = 0.6 oz pure alcoho l) Sex Assigned at Date Recorded Female 01/14/2020 10:57 AM LONG CHAIN BEAMER documented as of this encounter Progress Notes Edgar Alfredo MD - 03/30/2012 11:35 AM CST This encounter was opened in error. Please disregard. CHAIN BEAMER documented in this encounter Plan of Treatment Upcoming Encounters Date Type Specialty Care Team Description 11/29/2021 Office Visit Wound Care Luis Camara, [place] [address] [place] [address] (Wo rk) 01/21/2022 Office Visit Gastroenterology Juanis Levi 2450 [place] [phone] Luis Fernando Miles MD 516 [facility] 2A [place] [address] documented as of this encounter Visit Diagnoses Diagnosis ERRONEOUS ENCOUNTER--DISREGARD - Primary documented in this encounter Care Teams Director Of Career Services Relationship Specialty Start Date End Date None, Bfp PCP - General 03/02/99 04/12/12 documented as of this encounter
--- OUTSIDE RECORDS SUMMARY | 2021-11-28 13:57 | XMS_ITS | Encounter Summary ---
:1980 Author Organization [place] Address 2450 [place] [address] Care Team Providers Name Role Phone None, Bfp Primary Care Provider Unavailable Encounter Details Date Type Department Care Team Description 05/17/2008 Emergency room [facility] Philippe Gonzalez MD [facility] EMERGENCY Y [facility] Results [address] [place], [place] [address] (Wo rk) Social History Tobacco Use Types Packs/Day Years Used Date Smoking Tobacco: Never Assessed Sex Assigned at Date Recorded Female 01/14/2020 10:57 AM FUEL HANDLER documented as of this encounter Progress Notes [...] instructed to try using one of the uwha-fwh-uxyxove gel heel inserts. If this is inadequate, she will be referred to orthopedics and can follow upwith Dr. Tipton this coming week. Electronically signed on 05/29/2008 16:12 by AKIRA GONZALEZ MD MT: [id number] Name: STEPHANI MCCORMICK MRN: [id number] Account: [id number] : 1980 Visit Date: 05/17/2008 Document: [id number] documented in this encounter Plan of Treatment Upcoming Encounters Date Type Specialty Care Team Description 11/29/2021 Office Visit Wound Care Luis Camara DPM 909 [place] [address] (Wo rk) 01/21/2022 Office Visit Gastroenterology Juanis Levi [address] [place] [address] Luis Fernando Miles MD 6 [facility] 2A [place] [address] documented as of this encounter Visit Diagnoses Not on filedocumented in this encounter Care Teams Manual Equipment Mechanic Relationship Specialty Start Date End Date None, Bfp PCP - General 03/02/99 04/12/12 documented as of this encounter
--- OUTSIDE RECORDS SUMMARY | 2021-11-28 13:57 | XMS_ITS | Encounter Summary ---
:1980 Author Organization [place] Address 2450 [facility] [place] [address] Care Team Providers Name Role Phone None, Bfp Primary Care Provider Unavailable Encounter Details Date Type Department Care Team Description 05/17/2008 Historic Notes INTERFACED REPORT Interface, Transcript onMD Social History Tobacco Use Types Packs/Day Years Used Date Smoking Tobacco: Never Assessed Sex Assigned at Date Recorded Female 01/14/2020 10:57 AM RAILROAD SURVEYOR documented as of this encounter Progress Notes Interface, Instructional Designer - 05/06/2010 5:46 AM CDT Allergies ?? No Known Allergies Basic Medication Information - History taken from:: Patient Medications (#1-10) - Medication: Zoloft - Medication: Ibuprofen - Medication: Mult. vit. - Medication: Vit. D - Medication: Calcium Signatures HOMER MCCALL (RN)[Signed 20:04] Authored: Allergies, Basic Medication Information, Medications (#1-10) documented in this encounter Plan of Treatment Upcoming Encounters Date Type Specialty Care Team Description 11/29/2021 Office Visit Wound Care Luis Camara DPM 909 [place], [place] [address] (Wo rk) 01/21/2022 Office Visit Gastroenterology Juanis Levi 2450 [place] [address] Luis Fernando Miles MD [address] [place] [address] documented as of this encounter Visit Diagnoses Not on filedocumented in this encounter Care Teams Controls Designer Relationship Specialty Start Date End Date None, Bfp PCP - General 03/02/99 04/12/12 documented as of this encounter
--- OUTSIDE RECORDS SUMMARY | 2021-11-28 13:57 | XMS_ITS | Encounter Summary ---
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 documented as of this encounter Plan of Treatment Upcoming Encounters Date Type Specialty Care Team Description 11/29/2021 Office Visit Wound Care Luis Camara DPM [address] [place] [address] (Wo rk) 01/21/2022 Office Visit Gastroenterology Juanis Levi [address] [place] [address] Luis Fernando Miles MD [address] [address] documented as of this encounter [...] (ABNORMAL) CRP inflammation (08/30/2006 3:06 PM CDT) [facility] Method Time Signature CRP Inflammation 8.6 (H) 0.0 - 8.0 MISYS mg/L Specimen Anatomical Collection Method Collection Time Receive d Time (Source) Location / / Volume Laterality 08/30/2006 3:06 PM 7 2:52 CDT PM CDT Inder Barillas MD LAB - BLOOD ORDERABLES Performing Organization Address City/State/ZIP Code Phon e Number MISYS Hemogram differential and platelet (08/30/2006 3:06 PM CDT) [facility] Method Time Signature MCV 89 78 - [...] City/State/ZIP Code Phon e Number MISYS (ABNORMAL) Basic metabolic panel (08/30/2006 3:06 PM CDT) P athologist Signature Sodium 144 133 - 144 [...] Address City/State/ZIP Code Phon e Number MISYS Erythrocyte sedimentation rate auto (08/30/2006 3:06 PM CDT) athologist Signature Sed Rate 17 0 - 20 mm/h MISYS Specimen Anatomical Collection Method Collection Time Receive d Time (Source) Location / / Volume Laterality 08/30/2006 3:06 PM 7 2:52 CDT PM CDT Inder Barillas MD LAB - BLOOD ORDERABLES Performing Organization Address [facility] Phon e Number MISYS Lymes antibodies total (08/30/2006 3:06 PM CDT) P athologist Signature Lyme ABYS Total 0.28 MISYS [...] to Borrelia ?b urgdorferi detected. Performed by [employer], [address] [place] [id number] [email or web address], ??Scout Goodman MD - Lab. Director Specimen Anatomical Collection Method Collection Time Receive d Time (Source) Location / / Volume Laterality 08/30/2006 3:06 PM 7 2:52 CDT PM CDT Inder Barillas MD LAB - BLOOD ORDERABLES Performing Organization Address [facility] Phon e Number MISYS HCG qualitative urine (08/30/2006 2:52 PM CDT) athologist Signature HCG Qual Urine Negative NEG MISYS Specimen Anatomical Collection Method Collection Time Receive d Time (Source) Location / / Volume Laterality 08/30/2006 2:52 PM 7 2:52 CDT PM CDT Inder Barillas MD LAB - URINE ORDERABLES Performing Organization Address City/State/ZIP Code Phon e Number MISYS documented in this encounter Visit Diagnoses Not on filedocumented in this encounter Care Teams Poultry Vaccinator Relationship Specialty Start Date End Date None, Bfp PCP - General 03/02/99 04/12/12 documented as of this encounter
--- OUTSIDE RECORDS SUMMARY | 2021-11-28 13:57 | XMS_ITS | Encounter Summary ---
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 Of note, the patient's regular FUR NAILER is a Dr. White. Medications - Medication: [...] done in the presence of a female quality improvement coordinator. The patient was sent for a US [...] MT: Name: STEPHANI MCCORMICK MRN: [id number] Account: [id number] : 1980 Visit Date: 04/11/2010 Document: [id number] ICAL CONSULTANT documented in this encounter Plan of Treatment Upcoming Encounters Date Type Specialty Care Team Description 11/29/2021 Office Visit Wound Care Luis Camara DPM [address] [place], [place] [address] (Wo rk) 01/21/2022 Office Visit Gastroenterology Juanis Levi [address] [place] [address] Luis Fernando Miles MD 516 [facility] 2A [place], [place] [address] documented as of this encounter Visit Diagnoses Not on filedocumented in this encounter Care Teams Review Engineer Relationship Specialty Start Date End Date None, Bfp PCP - General 03/02/99 04/12/12 documented as of this encounter
--- OUTSIDE RECORDS SUMMARY | 2021-11-28 13:58 | XMS_ITS | Encounter Summary ---
:1980 Author Organization [place] Address [facility] [place] [address] Care Team Providers Name Role Phone None, Bfp Primary Care Provider Unavailable Encounter Details Date Type Department Care Team Description 01/05/2005 Historic Results [facility] Shukri Reddy MD Emergency Department [address] [address] [place] [phone] Social History Tobacco Use Types Packs/Day Years Used Date Smoking Tobacco: Never Assessed Sex Assigned at Date Recorded Female 01/14/2020 10:[address] MAGISTRATE documented as of this encounter Plan of Treatment Upcoming Encounters Date Type Specialty Care Team Description 11/29/2021 Office Visit Wound Care Luis Camara DPM [address] [place], [place] [phone] (Wo rk) 01/21/2022 Office Visit Gastroenterology Juanis Levi [address] [place] [address] Luis Fernando Miles MD [address] [id number] documented as of this encounter Procedures Procedure Name Priority Date/Time Associated Comments Diagnosis UA MACROSCOPIC WITH STAT 01/05/2005 8:45 PM Re sults for this REFLEX TO MICRO LICENSING [facility] MAGISTRATE procedure ar e in the results section. URINE MICROSCOPIC Routine 01/05/2005 8:45 PM Resu lts for this EXAM LICENSING COURT MAGISTRATE procedure are i n the results section. DRUG ABUSE SCREEN 8 STAT 01/05/2005 8:45 PM Re sults for this URINE (UR) LICENSING COURT MAGISTRATE procedure are i n the results section. documented in this encounter Results (ABNORMAL) UA macroscopic with reflex to micro (01/05/2005 8:[address] MAGISTRATE) [facility] Method Time Signature Source Midstream MISYS Urine Color Urine Yellow MISYS Appearance Urine Clear MISYS Glucose Urine Negative NEG mg/dL MISYS Bilirubin Urine Negative NEG MISYS Ketones Urine Negative NEG mg/dL MISYS Specific [place] 1.034 1.003 - MISYS Urine 1.035 Blood [...] Volume Laterality 01/05/2005 8:45 PM 5 8:[address] MAGISTRATE PM [address] MAGISTRATE Shukri Reddy MD LAB - URINE ORDERABLES Performing Organization Address City/[facility]/ZIP Code Phon e Number MISYS (ABNORMAL) Drug abuse screen 8 urine (UR) (01/05/2005 8:[address] MAGISTRATE) [facility] Method Time Signature Amphetamine Qual Negative NEG [...] Volume Laterality 01/05/2005 8:45 PM 5 8:[address] MAGISTRATE PM [address] MAGISTRATE Shukri Reddy MD LAB - URINE ORDERABLES Performing Organization Address City/State/ZIP Code Phon e Number MISYS (ABNORMAL) Microscopic exam urine (01/05/2005 8:[address] MAGISTRATE) [facility] gist Method Time Signature WBC Urine O - [...] Volume Laterality 01/05/2005 8:45 PM 5 9:[address] MAGISTRATE PM [address] MAGISTRATE Shukri Reddy MD LAB - URINE ORDERABLES Performing Organization Address City/State/ZIP Code Phon e Number MISYS documented in this encounter Visit Diagnoses Not on filedocumented in this encounter Care Teams Scrap Breaker Relationship Specialty Start Date End Date None, Bfp PCP - General 03/02/99 04/12/12 documented as of this encounter
--- OUTSIDE RECORDS SUMMARY | 2021-11-28 13:58 | XMS_ITS | Encounter Summary ---
:1980 Author Organization [place] Address [address] [facility] 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 documented as of this encounter Plan of Treatment Upcoming Encounters Date Type Specialty Care Team Description 11/29/2021 Office Visit Wound Care Luis Camara DPM [address] [place], [place] [phone] (Wo rk) 01/21/2022 Office Visit Gastroenterology Juanis Levi [address] [place] [phone] Luis Fernando Miles MD [address] [facility] [place], [place] [address] documented as of this encounter Visit Diagnoses Not on filedocumented in this encounter Care Teams Freight Claim Investigator Relationship Specialty Start Date End Date None, Bfp PCP - General 03/02/99 04/12/12 documented as of this encounter
--- OUTSIDE RECORDS SUMMARY | 2021-11-28 13:58 | XMS_ITS | Encounter Summary ---
:1980 Author Organization [place] Address [address] 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 documented as of this encounter Plan of Treatment Upcoming Encounters Date Type Specialty Care Team Description 11/29/2021 Office Visit Wound Care Luis Camara DPM [address] [place] [address] (Wo rk) 01/21/2022 Office Visit Gastroenterology Juanis Levi [address] [place] [phone] Luis Fernando Miles MD 516 [facility] [address] [place] [address] documented as of this encounter Visit Diagnoses Not on filedocumented in this encounter Care Teams Customer Engineer Relationship Specialty Start Date End Date None, Bfp PCP - General 03/02/99 04/12/12 documented as of this encounter
--- OUTSIDE RECORDS SUMMARY | 2021-11-28 13:58 | XMS_ITS | Encounter Summary ---
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 documented as of this encounter Plan of Treatment Upcoming Encounters Date Type Specialty Care Team Description 11/29/2021 Office Visit Wound Care Luis Camara DPM [address] [place], [place] [phone] (Wo rk) 01/21/2022 Office Visit Gastroenterology Juanis Levi [address] [place] [address] Luis Fernando Miles MD 516 [facility] [address] [place], [place] [address] documented as of this encounter Procedures Procedure Name Priority Date/Time Associated Diagnosis Comme nts HC CT LOWER Routine 01/07/2005 9:00 PM Results f or this EXTREMITY W/O PIANO REFINISHER procedure are in CONTRAST the results section. documented in this encounter Results CT SCAN LEG (01/07/2005 9:00 PM PIANO REFINISHER) Anatomical Region Laterality Modality Other Specimen (Source) Anatomical Collection Method Collection Time Re ceived Time Location / / Volume Laterality 01/07/2005 9:00 PM PIANO REFINISHER Impressions 01/08/2005 1:40 PM PIANO REFINISHER ? CT STUDY OF RIGHT LOWER EXTREMITY TO SHEFALI HERNANDEZ CALCANEUS, 01/07/05 ?? CLINICAL HISTORY: Patient 6-1/2 months p regnant with history of trauma to the foot. [...] metatarsal. Radames Dupree MD SPECIAL IMAGING STUDIES documented in this encounter Visit Diagnoses Not on filedocumented in this encounter Care Teams House Rn Relationship Specialty Start Date End Date None, Bfp PCP - General 03/02/99 04/12/12 documented as of this encounter
--- OUTSIDE RECORDS SUMMARY | 2021-11-28 13:58 | XMS_ITS | Encounter Summary ---
:1980 Author Organization [place] Address [address] [facility] 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 HC X-RAY ANKLE 2 Routine 01/06/2005 1:45 PM Resul ts for this VIEWS ROADABILITY 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 procedure are i n the results section. documented in this encounter Results X-RAY FOOT 2 VW (01/06/2005 1:46 PM ROADABILITY 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) Anatomical Region Laterality Modality Other Specimen (Source) Anatomical Collection Method Collection Time Re ceived Time Location / / Volume Laterality 01/06/2005 1:46 PM ROADABILITY 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 Impressions 01/07/2005 4:29 PM ROADABILITY 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 2 VIEW RIGHT FOOT AND 2 VIEW [...] and foot. Edgar Alfredo MD GENERAL IMAGING X-RAY ANKLE 2 VW (01/06/2005 1:45 PM ROADABILITY 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) Anatomical Region Laterality Modality Other Specimen (Source) Anatomical Collection Method Collection Time Re ceived Time Location / / Volume Laterality 01/06/2005 1:45 PM ROADABILITY 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 Impressions 01/07/2005 4:29 PM ROADABILITY 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 2 VIEW RIGHT FOOT AND 2 VIEW [...] and foot. Edgar Alfredo MD GENERAL IMAGING documented in this encounter Visit Diagnoses Not on filedocumented in this encounter Care Teams Shed Boss Relationship Specialty Start Date End Date None, Bfp PCP - General 03/02/99 04/12/12 documented as of this encounter
--- OUTSIDE RECORDS SUMMARY | 2021-11-28 13:58 | XMS_ITS | Encounter Summary ---
:1980 Author Organization [place] Address [address] [facility] 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 documented as of this encounter Plan of Treatment Upcoming Encounters Date Type Specialty Care Team Description 11/29/2021 Office Visit Wound Care Luis Camara DPM [address] [place] [address] (Wo rk) 01/21/2022 Office Visit Gastroenterology Juanis Levi [address] [place] [phone] Luis Fernando Miles MD 516 [facility] [address] [place] [address] documented as of this encounter Visit Diagnoses Not on filedocumented in this encounter Care Teams Paper Ruler Relationship Specialty Start Date End Date None, Bfp PCP - General 03/02/99 04/12/12 documented as of this encounter
--- OUTSIDE RECORDS SUMMARY | 2021-11-28 13:58 | XMS_ITS | Encounter Summary ---
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 [id number]_ SANTO DELONG MD MT: Document: [id number] [place], [place] Name: STEPHANI MCCORMICK EMERGENCY ROOM ENCOUNTER Page 2 of 2 LCN: JOSEPH DSC: 09/29/2003 [place], [place] Name: MR#: : Admit Date: STEPHANI MCCORMICK -66 1980 09/29/2003 Doctor: SANTO DELONG MD EMERGENCY ROOM ENCOUNTER Page 1 of 2 documented in this encounter Plan of Treatment Upcoming Encounters Date Type Specialty Care Team Description 11/29/2021 Office Visit Wound Care Luis Camara DPM [address] [place], [place] [address] (Wo rk) 01/21/2022 Office Visit Gastroenterology Juanis Levi [address] [place] [address] Luis Fernando Miles MD 516 [facility] [address] [place], [place] [phone] documented as of this encounter Visit Diagnoses Not on filedocumented in this encounter Care Teams Story Analyst Relationship Specialty Start Date End Date None, Bfp PCP - General 03/02/99 04/12/12 documented as of this encounter
--- OUTSIDE RECORDS SUMMARY | 2021-11-28 13:58 | XMS_ITS | Encounter Summary ---
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 SHAVONNE ANSARI MD MT: Document: [id number] [place], [place] Name: STEPHANI MCCORMICK EMERGENCY ROOM ENCOUNTER Page 2 of 2 LCN: ER DSC: 09/21/2003 [place], [place] Name: STEPHANI MCCORMICK MR#: : Admit Date: [id number] 1980 09/21/2003 Doctor: SHAVONNE ANSARI MD EMERGENCY ROOM ENCOUNTER Page 1 of 2 documented in this encounter Plan of Treatment Upcoming Encounters Date Type Specialty Care Team Description 11/29/2021 Office Visit Wound Care Luis Camara DPM [address] [place], [place] [address] (Wo rk) 01/21/2022 Office Visit Gastroenterology Juanis Levi [address] [place] [address] Luis Fernando Miles MD 516 [facility] [address] [place] [address] documented as of this encounter Visit Diagnoses Not on filedocumented in this encounter Care Teams Talent Acquisition Administrator Relationship Specialty Start Date End Date None, Bfp PCP - General 03/02/99 04/12/12 documented as of this encounter
--- OUTSIDE RECORDS SUMMARY | 2021-11-28 13:59 | XMS_ITS | Clinical Summary ---
:1980 Author Organization [employer] [place] [address] Care Team Providers Name Role Phone Luis Fernando Magana MD Primary Care Provider [phone] Allergies No known active allergies Medications [...] 10 mg tablet mouth 4 times daily. cholecalciferol (VITAMIN Daily 0 Active D3) 5,000 unit capsule omeprazole (PRILOSEC) 20 Daily 0 03/14/2015 Active mg Delayed-Release capsule Active Problems Problem Noted Date Myopia of [...] for Dr. Sayda HEREDIA signed for [facility]: Signed 10/25/14 REFERRING PHYSICIAN: Angelique Brewer [facility] [phone] Breanna Coleman [facility] [phone] SPECIALISTS: Dr. [facility] (pain MD?) SHOP MECHANIC: Yesenia Zaman, [facility] CARE COORDINATION: Erika Galvan RN/Camryn Hernandez RN [phone] CONSULTS: Presented at Teresa/Gabriel Rounds on 11/03 NICU Consult/Tour: 11/10 at 12:30 [facility] Tour: [id number] Cardiac Surgery Consult: will not meet p renatal/[place]mer PROCEDURES: CHECKLIST FOR SCHEDULING PRO CEDURES: Procedure: Induction Hospital: [place] Unit: L&D Date & Time of procedure: 12/06/14 at 12 00 Savage Score if induction: 6 Pertinent information: Gestational age on procedure date: 39w0d MD doing procedure: Hospitalist Date scheduled: 11/30/2014 Scheduling MD & RN: Lona Hernandez NP and Kae Guadarrama RN Hospitalist Delivery-Brianna Rodriguez notif ied: [phone]) Yes H&P and Plan in chart: Not Applicable MPP notified via imgScrimmageian inbox? Not Applicable On [facility] calendar? Not Applicable Amnio needed: No Amnio scheduled: Not Applicable Does NICU need notification: Yes NICU notification done: Yes (NICU [phone]) PPTL permit signed: Not Applicable Patient notified of procedure date: Yes, Discussed: 11/30/14 Written admission instructions given to patient: Yes Destiny Herron NICU [phone] Peds Surgery Durga/Angelika [phone] Dr.Nagib Lozano Neurology [facility] Dr.Aliabadi Lozano Urology [phone] Heart Surgery [place] [phone] MEDS: Subutex Effexor Levothyroxine 125 mcg Wellbutrin [...] Not planning Tubal Ligation Is Medical assistance MD PLAN OF CARE: 11/23 BLANCHE Plan: Weekly [...] Await spontaneous labor, per Dr. Rikki Hernandez, [facility] Insufficient care 04/30/2009 Hepatitis C carrier 04/30/2009 Unspecified drug dependence, unspecified 09/13/2004 Overview: started Oxycontin, 3 yrs, then heroin fo r 2 yrs Resolved Problems Problem Noted Date Resolved Date Normal delivery 04/30/2009 10/25/2014 Meconium in amniotic fluid noted before labor in liveborn 10/25/2014 Supervision of other normal 09/13/2004 DEPENDENCE, DRUG NEC, UNSPECIFIED 05/05/20002004 EXAMINATION, ROUTINE MEDICAL 04/16/2000 09/13/2004 MALAISE AND FATIGUE 04/16/2000 09/13/2004 DEPRESSION, NEUROTIC 04/16/2000 09/13/2004 Encounters Date Type Specialty Care Team Description 11/28/2021 Office Visit Edgardo Lo, OD Eye Exam (Routine eye exam) 11/28/2021 Travel from Last 3 Months Immunizations Name Administration Dates Next Due Tdap [...] Assigned at Date Recorded Not on file COVID-19 Exposure Response Date Recorded In the last 10 days, have you been in contact No / Unsure 11/28/2021 10:46 AM CDT with someone who was confirmed or suspected to have Coronavirus/COVID-19? Obstetrics History Para Term AB IAB SAB Ectopic Multiple Living Live Births 7 7 7 0 0 0 0 0 0 6 7 Date Outcome GA Total Labor/2nd/3rd Weight Sex Delivery Anes PTL Hina A 1 A5 Name Clin Labor 11/06 Term 40w 14h 00m/ 3.43 kg F Vag Epidu N Layla B /1996 0d (7 lb 9 ral ng na oz) Delivery Location: [facility] Comments: wt gain 25#. uncomplicat ed. dilated slowly. AROM. Uncomplicated delivery. 04/08/2005 Term 41w0d F Vag Living Complications: None Delivery Location: [place] 05/30/2006 Term 40w0d M Vag Living Delivery Location: [facility] 04/30/2009 Term 37w0d F Vag Epidural Living Delivery Location: [place] 10/01/2010 Term 40w0d M Vag Epidural N Demis e Delivery Location: [facility] 07/20/2012 Term 40w0d M Epidural, General Living Delivery Location: [place] 12/04/2014 Term 38w5d 2.49 kg (5 lb 7.8 oz) M L iving 1 3 Complications: Uterine rupture during la bor Delivery [facility] Last Filed Vital Signs [...] Dates Phone Addre ss Type Group [facility] [id number] 2021-Present [address] [place] [address] Advance Directives Latest Code Status on File Code Status Date Activated Date Inactivated Comments Full Code 12/04/2014 6:39 AM 12/07/2014 7:40 PM Full Code 12/03/2014 8:45 PM 12/04/2014 6:39 AM Full Code 12/03/2014 4:25 PM 12/03/2014 8:45 PM Full Code 12/03/2014 3:24 PM 12/03/2014 4:25 PM Full Code 04/30/2009 10:06 PM 05/02/2009 3:13 PM Care Teams Electrical Mechanical Technician Relationship Specialty Start Date End Date Luis Fernando Magana MD PCP - General Family Practice 06/24/13 [address] [place] [address]
--- OUTSIDE RECORDS SUMMARY | 2021-11-28 13:59 | XMS_ITS | Encounter Summary ---
:1980 Author Organization [facility] Address [address] [place] [address] Care Team Providers Name Role Phone Unavailable Primary Care Provider Unavailable Reason for Visit Reason Comments Knee Pain or Injury ANKLE PAIN Encounter Details Date Type Department Care Team Description 08/26/2020 Hospital Encounter [place] [address] Aishwarya Marie MD Chronic pain of left knee; Urgent Care [address] [address] Acute right ankle pain [address] [place] [address] [phone] Social History Tobacco Use Types Packs/Day Years [...] Ch RN - 08/26/2020 4:11 PM CDT Stephani King is a 39 [...]
--- OUTSIDE RECORDS SUMMARY | 2021-11-28 13:59 | XMS_ITS | Encounter Summary ---
:1980 [facility] Address [address] [place] [address] Care Team Providers Name Role Phone Unavailable Primary Care Provider Unavailable Reason for Visit Procedure/Equipment (Routine) - Incomplete Specialty Diagnoses / Procedures Referred By Contact Refer red To Contact Diagnoses Acute right ankle pain Jamie Sr MBBS Procedures XR Ankle Rt 3 Views [address] [place], [place] [address] Referral ID Status Reason Start Date Expiration Date Visits V isits Requested Authorized [id number] Incomplete 08/26/2020 11/25/2021 1 1 Encounter Details Date Type Department Care Team Description 08/26/2020 Ancillary Procedure [place] [facility] Canceled (Patient [id number] Request) [place] [address] Social History Tobacco Use Types Packs/Day Years Used Date Smoking Tobacco: Every Day Smokeless Tobacco: Never Sex Assigned at Date Recorded Not on file documented as of this encounter Plan of Treatment Not on filedocumented as of this encounter Visit Diagnoses Not on filedocumented in this encounter
--- OUTSIDE RECORDS SUMMARY | 2021-11-28 13:59 | XMS_ITS | Clinical Summary ---
:1980 Author Organization [facility] Address [address] [place] [address] Care Team Providers Name Role Phone Unavailable [...]
--- OUTSIDE RECORDS SUMMARY | 2021-11-28 13:59 | XMS_ITS | Encounter Summary ---
:1980 Author [facility] Address [address] [place] [address] Care Team Providers Name Role Phone Unavailable Primary Care Provider Unavailable Reason for Visit Procedure/Equipment (Routine) - Incomplete Specialty Diagnoses / Procedures Referred By Contact Refer red To Contact Diagnoses Chronic pain of left knee Jamie Sr MBBS Procedures XR Knee Lt 3 Views [address] [place], [place] [address] Referral ID Status Reason Start Date Expiration Date Visits V isits Requested Authorized [id number] Incomplete 08/26/2020 11/25/2021 1 1 Encounter Details Date Type Department Care Team Description 08/26/2020 Ancillary Procedure [facility] [facility] Canceled (Patient [id number] Request) [place] [address] Social History Tobacco Use Types Packs/Day Years Used Date Smoking Tobacco: Every Day Smokeless Tobacco: Never Sex Assigned at Date Recorded Not on file documented as of this encounter Plan of Treatment Not on filedocumented as of this encounter Visit Diagnoses Not on filedocumented in this encounter
[2021-11-28 21:14] LABS: Albumin* 4.2 g/dL (3.3-5.0); Chloride* 107 mmol/L (96-114); Potassium* 4.4 mmol/L (3.6-5.1); Sodium* 142 mmol/L (135-149)
[2021-11-28 21:16] LABS: Creatinine* 0.5 mg/dL (0.5-1.5); Estimated Glomerular Filt Rate 121 ml/min
[2021-11-28 21:17] LABS: Alanine Aminotransferase* 41 U/L (4-35); Alkaline Phosphatase* 132 U/L (40-150); Aspartate Amino Transferase* 71 U/L (12-35); Bilirubin Total* 0.5 mg/dL (0.1-1.5); Blood Urea Nitrogen* 6 mg/dL (5-24); Calcium* 8.9 mg/dL (8.4-10.6); Carbon Dioxide* 25 mmol/L (20-32); Glucose* 101 mg/dL (60-115); Total Protein* 7.7 g/dL (6.0-8.3)
[2021-11-28 21:50] LABS: TSH With Reflex to FT4* 0.696 uIU/mL (0.270-4.200)
== END 2021-11-28 13:36 | disposition home or self-care (01) ==
PROVIDERS: Visit Provider Physician Assistant Medical
DX: D50.9 Iron deficiency anemia, unspecified (principal); E03.9 Hypothyroidism, unspecified; L02.419 Cutaneous abscess of limb, unspecified; D64.9 Anemia, unspecified
CPT/HCPCS: 80053; 84443

== ENCOUNTER 2021-12-05 18:13 | Emergency (ER) | payer MEDICAID, SELFPAY ==
[2021-12-05 18:35] VITALS: BP 127/73; PULSE 83; RESP 18; TEMP 36.8; O2SAT 97; BMI 29.1
--- NOTE | 2021-12-05 19:04 | CRLHL7_ITS ---
For Patients: As a result of the Century Cures Act, medical imaging exams and procedure reports are released immediately into your electronic medical record. You may view this report before your referring provider. If you have questions, please contact your health care provider. INDICATION: Leg pain and swelling. TECHNIQUE: Ultrasound venous duplex lower right extremity. Compression venous exam was performed using leigh-scale, color Doppler, and spectral Doppler analysis. COMPARISON: None. FINDINGS: Deep veins: Sonographic imaging demonstrates the right common femoral, deep femoral, superficial femoral, popliteal, posterior tibial and the contralateral left common femoral veins to be fully compressible with normal color Doppler blood flow. Superficial veins: Greater saphenous vein is fully compressible. No popliteal cyst. Soft tissue swelling. IMPRESSION: No DVT in the right lower extremity. Dictated by Sumaya Junior MD @ 12/05/2021 9:20:11 PM (Electronically Signed)
--- NOTE | 2021-12-05 19:06 | ED.GENADULT ---
HPI - General Adult General Chief complaint: Lower Extremity Swelling Stated complaint: Leg is Red and Hard Time Seen by Provider: 12/05/21 18:29 History of Present Illness HPI narrative: This 41-year-old female comes in with concern about redness, warmth, and swelling in her right lower extremity. She had a large wound below her right ankle that required skin grafting about 6 months ago. She was on IV antibiotics at that time. She also had a deep venous thrombus and was on anticoagulants until she developed a gastrointestinal bleed. She is no longer taking blood thinners. She does not describe any shortness of breath or chest pain. She arrives with normal vital signs. She does have erythema in her right lower extremity extending from her knee down to her foot. She does not report any fevers. She states that she has some erythema in her right lower leg chronically but this appears to be worse. Related Data Home Medications Medication Instructions Recorded Confirmed buprenorphine HCl 8 mg sublingual 8 mg sublingual TID 09/12/21 11/28/21 tablet cholecalciferol (vitamin D3) 50 50 mcg PO QDAY 09/12/21 11/28/21 mcg (2,000 unit) tablet diclofenac sodium 1 % topical gel 2 g topical BID 09/12/21 11/28/21 (Arthritis Pain (diclofenac)) fexofenadine 180 mg tablet 180 mg PO Q24H PRN 09/12/21 10/08/21 folic acid 1 mg tablet 1 mg PO QDAY 09/12/21 11/28/21 hydroxyzine HCl 25 mg tablet 25 mg PO .HS 09/12/21 11/28/21 lactulose 20 gram oral packet 20 g PO BID 09/12/21 11/28/21 levothyroxine 125 mcg capsule 125 mcg PO QDAY 09/12/21 11/28/21 methocarbamol 750 mg tablet 750 mg PO TID 09/12/21 11/28/21 miconazole nitrate 2 % topical 1 applic topical BID 09/12/21 11/28/21 powder nicotine 14 mg/24 hr daily 1 patch transdermal Q24H 09/12/21 11/28/21 transdermal patch sennosides 8.6 mg-docusate sodium 2 tab-cap PO BID PRN 09/12/21 10/16/21 50 mg tablet (Senna with Docusate Sodium) thiamine HCl (vitamin B1) 100 mg 100 mg PO QDAY 09/12/21 11/28/21 tablet venlafaxine 75 mg capsule,extended 75 mg PO QAM 09/12/21 11/28/21 release 24 hr acetaminophen 500 mg tablet 1,000 mg PO Q8H PRN 11/28/21 11/28/21 clonidine HCl 0.1 mg tablet 0.1 mg PO BID PRN 11/28/21 11/28/21 divalproex 500 mg tablet,delayed 500 mg PO DAILY 11/28/21 11/28/21 release gabapentin 300 mg capsule 300 mg PO BID 11/28/21 11/28/21 lidocaine HCl 4 % topical liquid ea topical .QOD 11/28/21 11/28/21 roll-on (Aspercreme (lidocaine HCl)) melatonin 3 mg capsule 3 mg PO ONCE 11/28/21 11/28/21 multivitamin (Daily Multi-Vitamin 1 tab PO QAM 11/28/21 11/28/21 tablet) polyethylene glycol 3350 17 gram 17 g PO QDAY PRN 11/28/21 11/28/21 oral powder packet (Miralax) Previous Rx's Medication Instructions Recorded apixaban 5 mg tablet (Eliquis) 5 mg PO BID #60 tabs 10/06/21 chlordiazepoxide HCl 25 mg capsule 25 mg PO ONCE #13 caps 11/01/21 clomipramine 25 mg capsule 25 mg PO ONCE 14 days #14 caps 11/01/21 mupirocin 2 % topical ointment 1 applic topical BID PRN scabs #22 11/01/21 grams ondansetron 4 mg disintegrating 4 mg PO BID PRN nausea and 11/01/21 tablet vomiting #20 tabs clindamycin phosphate 1 % lotion 1 applic topical BID #60 mL 11/28/21 tramadol 50 mg tablet 50 mg PO QDAY #15 tabs 11/28/21 Allergies Allergy/AdvReac Type Severity Reaction Status Date / Time No Known Allergies Allergy Verified 12/05/21 18:35 Review of Systems Status of ROS: Reports: 10 or more systems reviewed and unremarkable except as noted in History and below Narrative: Constitutional: No fevers, no weight gain or loss. Eyes: No discharge. No vision changes. HENT: No congestion, no sore throat, no ear pain. Cardiovascular: No chest pain, no palpitations. Respiratory: No shortness of breath, no wheezes, no cough. Gastrointestinal: No abdominal pain, no vomiting, no diarrhea. Genitourinary: No dysuria, no hematuria. Musculoskeletal: Normal range of motion. Increased redness, warmth, and swelling in the right lower extremity as described above. Skin: No rashes, no pruritis. Neurological: No dizziness, weakness, sensory change, speech change. Endo/Heme/Allergies: No bruising or bleeding. No polydipsia. Pysch: no suicidality, no anxiety, no insomnia. All other systems reviewed and are negative. [facility] Medical History (Updated 12/05/21 @ 21:57 by Edgar Burrell MD) Acute deep vein thrombosis (DVT) of right lower extremity Anemia Cellulitis of leg, right GI bleed Surgical History History of delivery History of gynecologic surgery History of thoracic surgery Status post hysterectomy Family History Other Depression Thyroid disease Social History Narrative: alcohol abuse cigarette smoker Smoking Status: Current every day smoker What tobacco products do you use: cigarettes Do you use any of these nicotine containing products: Other Second hand tobacco smoke exposure: No How often do you have a drink containing alcohol: 2-3 times a week How many standard drinks containing alcohol do you have on a typical day: 1 or 2 How often do you have six or more drinks on one occasion: Never AUDIT-C Alcohol total score: 3 Non-prescribed substance use: denies use 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 HEENT: Normocephalic, atraumatic. Neck: Normal range of motion. Nontender. Supple. Heart: Intact distal pulses. Lungs: No chest discomfort. No wheezes, rhonchi, or rales. Abdomen: Nontender. Back: Normal range of motion. Extremities: Normal range of motion. Right lower extremity has erythema with diffuse swelling and warmth extending from the knee on down into the foot. She has a bandage over a chronic wound on the lateral aspect of her foot. The erythema does not dissipate when holding her leg in an elevated position. Skin: Intact. No rash. Warm. No erythema or pallor. Neurologic: No altered sensation. No weakness. Alert and oriented. Psychiatric: No suicidality. No anxiety or depression. No insomnia. Nursing notes and vitals signs are reviewed. Const: Vital Signs, click to edit/add: Vital Signs - 24 hr 12/05/21 18:35 12/05/21 20:47 12/05/21 21:49 Temperature 98.2 F 98.2 F Pulse Rate [Pulse Oximeter] 83 88 Respiratory Rate 18 16 Blood Pressure [Le ft Upper Arm] 127/73 124/80 Pulse Oximetry 97 97 Oxygen Delivery Me thod Room Air Room Air Course Vital Signs Vital signs: Initial Vital Signs Temperature 98.2 F 12/05/21 18:35 Temperature Source Temporal Artery Scan 12/05/21 18:35 Pulse Rate 83 12/05/21 18:35 Pulse Rhythm 12/05/21 18:35 Respiratory Rate 18 12/05/21 18:35 Blood Pressure 127/73 12/05/21 18:35 Blood Pressure Mean 91 12/05/21 18:35 Pulse Oximetry 97 12/05/21 18:35 Oxygen Delivery Method 12/05/21 18:35 Vital Signs Temperature 98.2 F 12/05/21 18:35 Pulse Rate 83 12/05/21 18:35 Respiratory Rate 18 12/05/21 18:35 Blood Pressure 127/73 12/05/21 18:35 Pulse Oximetry 97 12/05/21 18:35 Oxygen Delivery Method 12/05/21 18:35 Temperature 98.2 F 12/05/21 21:49 Pulse Rate 88 12/05/21 20:47 Respiratory Rate 16 12/05/21 20:47 Blood Pressure 124/80 12/05/21 20:47 Pulse Oximetry 97 12/05/21 20:47 Oxygen Delivery Method 12/05/21 20:47 Medical Decision Making MDM Narrative Medical decision making narrative: This patient comes in with redness, warmth, and erythema in her right lower extremity. She has chronic wound of her right lateral foot dating back to 6 months ago. She states that the redness and warmth and swelling have increased recently. She does not describe any fevers. She had been on anticoagulants because of a history of deep venous thrombosis but this was discontinued due to a GI bleed. Ultrasound of the right lower extremity today shows no sign of deep venous thrombus. When I raise her leg passively and hold it up for a few minutes the erythema does not dissipate in her legs. It seems more likely this would dissipate if it were simply venous stasis erythema. There is enough suspicion of a cellulitis here that I did prescribe Keflex. She is seeing Wound Clinic and has home health care for ongoing management of this. Imaging Data US R Lower Extremity: Radiologist's impression: No DVT in the right lower extremity. Discharge Plan Discharge Clinical Impression: Cellulitis Patient Disposition: Home, Self-Care Condition: Stable Additional Instructions: Take medication as prescribed. Follow up with MD and wound clinic as scheduled. Return if worsening. Prescriptions: No Action acetaminophen 500 mg tablet 1,000 mg PO Q8H PRN clonidine HCl 0.1 mg tablet 0.1 mg PO BID PRN divalproex 500 mg tablet,delayed release (DR/EC) 500 mg PO DAILY Aspercreme (lidocaine HCl) 4 % liquid roll-on topical .QOD melatonin 3 mg capsule 3 mg PO ONCE multivitamin [Daily Multi-Vitamin] Tablet 1 tab PO QAM polyethylene glycol 3350 [Miralax] 17 gram powder in packet 17 g PO QDAY PRN clindamycin phosphate 1 % lotion 1 applic topical BID Qty: 60 1RF tramadol 50 mg tablet 50 mg PO QDAY Qty: 15 0RF buprenorphine HCl 8 mg tablet, sublingual 8 mg sublingual TID cholecalciferol (vitamin D3) 50 mcg (2,000 unit) tablet 50 mcg PO QDAY diclofenac sodium [Arthritis Pain (diclofenac)] 1 % gel 2 g topical BID Rx Instructions: apply to single elbow, wrist or hand; for hand includes palm/fingers/back of hand fexofenadine 180 mg tablet 180 mg PO Q24H PRN folic acid 1 mg tablet 1 mg PO QDAY hydroxyzine HCl 25 mg tablet 25 mg PO .HS lactulose 20 gram packet 20 g PO BID levothyroxine 125 mcg capsule 125 mcg PO QDAY methocarbamol 750 mg tablet 750 mg PO TID miconazole nitrate 2 % powder 1 applic topical BID nicotine 14 mg/24 hr patch 24 hour 1 patch transdermal Q24H sennosides-docusate sodium [Senna with Docusate Sodium] 8.6-50 mg tablet 2 tab-cap PO BID PRN thiamine HCl (vitamin B1) 100 mg tablet 100 mg PO QDAY venlafaxine 75 mg capsule,extended release 24hr 75 mg PO QAM gabapentin 300 mg capsule 300 mg PO BID clomipramine 25 mg capsule 25 mg PO ONCE 14 Days Qty: 14 8RF mupirocin 2 % ointment 1 applic topical BID PRN (Reason: scabs) Qty: 22 1RF chlordiazepoxide HCl 25 mg capsule 25 mg PO ONCE Qty: 13 0RF Rx Instructions: Day 1: 2 pills every 8 hours, Day 2: 2 pills every 12 hours; Day 3: 1 pill every 12 hours; Day 4: 1 pill once daily; stop ondansetron 4 mg tablet,disintegrating 4 mg PO BID PRN (Reason: nausea and vomiting) Qty: 20 0RF Eliquis 5 mg tablet 5 mg PO BID Qty: 60 2RF Rx Instructions: Take 10mg twice daily for 7 days, then go to 5mg twice daily after that Follow Up/Referrals: Provider,Not a Local [Primary Care Provider] - Stand Alone Forms: MyHealth Info Instructions
--- OUTSIDE RECORDS SUMMARY | 2021-12-05 19:17 | XMS_ITS | Encounter Summary ---
:1980 Author Organization [facility] Address [address] [place] [address] Care Team Providers Name Role Phone Stephani Pina SENIOR ENGINEER ENERGY AUDITOR Unavailable [phone] Juanis Levi Primary Care Provider Elsa Yeh RN Unavailable Unavailable Rogelio Treadwell MD Unavailable [phone] Luis Camara DPM Unavailable [phone] Sintia Lange PA-C Unavailable Luis Fernando Miles MD Unavailable [phone] Encounter Details Date Type Department Care Team Description 11/30/2021 Travel Social History Tobacco Use Types Packs/Day Years Used Date Smoking Tobacco: Every Day Cigarettes 0.3 10 Smokeless Tobacco: Never Comments: 5-8 cigarettes a day (hasn't s moked since in transitional care 07/23/21) Alcohol Use Standard Drinks/Week Comments Not Currently 0 (1 standard drink = 0.6 oz pure alcoho l) sober since 05/08 Sex Assigned at Date Recorded Female 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 documented as of this encounter Plan of Treatment Upcoming Encounters Date Type Specialty Care Team Description 12/20/2021 Office Visit Wound Care Luis Camara DPM [address] [place], [place] [address] (Wo rk) 01/21/2022 Office Visit Gastroenterology Juanis Levi [address] [place] [address] Luis Fernando Miles MD 6 [facility] [address] [place], [place] [id number] documented as of this encounter Visit Diagnoses Not on filedocumented in this encounter Additional Health Concerns Infection Onset Date Last Indicated Resolved Time MRSAComment: Added from external infection. 11/07/201406/18 Assessment Noted Time PHQ-9 Depression Total Score: 3 11/19/2021 11:45 AM CD T documented as of this encounter Care Teams Trade Union Secretary Relationship Specialty Start Date End Date Juanis Levi PCP - General Addiction Medicine 06/29/[address] [place] [phone] Stephani Pina, Assigned PCP 02/25/21 SENIOR ENGINEER ENERGY AUDITOR [address] [place], [place] [id number] Elsa Yeh, Registered Nurse Infectious Diseases 07/25/21 Rogelio Wilson Assigned Musculoskeletal 08/04/21 MD August Provider [address] [place] [address] [id number] Luis Camara MD Podiatry 08/16/21 CALVIN Burnett [address] [place] [id number] Sintia Lange, Assigned Surgical 09/08/21 PA-C Provider [address] [id number] Landon Warren MD Gastroenterology 11/21/21 MD Luis Fernando [address] [facility] [address] [place], [place] [id number] documented as of this encounter
--- OUTSIDE RECORDS SUMMARY | 2021-12-05 19:17 | XMS_ITS | Encounter Summary ---
:1980 Author Organization [facility] Address [address] [place] [address] Care Team Providers Name Role Phone Stephani Pina NUMERICAL CONTROL MACHINE MACHINIST SPRING COILER Unavailable [phone] Juanis Levi Primary Care Provider Elsa Yeh RN Unavailable Unavailable Rogelio Treadwell MD Unavailable [phone] Luis Camara DPM Unavailable [phone] Sintia Lange PA-C Unavailable Luis Fernando Miles MD Unavailable [phone] Reason for Visit Reason Comments Leg Pain Encounter Details Date Type Department Care Team Description 11/30/2021 Emergency [facility] [address] [place] [address] Social History Tobacco Use Types Packs/Day Years Used Date Smoking Tobacco: Every Day Cigarettes 0.3 10 Smokeless Tobacco: Never Comments: 5-8 cigarettes a day (hasn't s moked since in transitional care 07/23/21) Alcohol Use Standard Drinks/Week Comments Not Currently 0 (1 standard drink = 0.6 oz pure alcoho l) sober since 05/08 Sex Assigned at Date Recorded Female 01/14/2020 10:57 AM COOLER DELIVERER COVID-19 Exposure Response Date Recorded In the last 10 days, have you been in contact with No / Unsu re 11/30/2021 2:17 PM CDT someone who was confirmed or suspected to have Coronavirus/COVID-19? documented as of this encounter Last Filed Vital Signs Vital Sign Reading Time Taken Comments Blood Pressure 138/84 11/30/2021 2:18 PM CDT Pulse 80 11/30/2021 2:18 PM CDT Temperature 36.6 ??C (97.9 ??F) 11/30/2021 2:18 PM CDT Respiratory Rate 18 11/30/2021 2:18 PM CDT Oxygen Saturation 99% 11/30/2021 2:18 PM CDT Inhaled Oxygen Concentration - - Weight 83.9 kg (185 lb) 11/30/2021 2:18 PM CDT Height - - Body Mass Index 29.86 08/22/2021 10:04 AM CDT documented in this encounter Medications at Time of Discharge Medication Sig Dispensed Refills Start Date End Date acamprosate (CAMPRAL) 333 Take 2 tablets (666 180 tablet 1 1 MG EC tabletIndications: mg) by mouth 3 times Alcohol use disorder, daily severe, dependence (H) acetaminophen (TYLENOL) Take 3 tablets (975 40 tablet 0 325 MG tabletIndications: mg) by mouth every 8 Osteomyelitis of right hours as needed for ankle, unspecified type mild pain (H) apixaban ANTICOAGULANT Take 5 mg by mouth 2 0 (ELIQUIS) 5 MG tablet times daily aspirin (ASA) 81 MG EC Take 2 tablets (162 60 tablet 0 06/0 05/2021 tabletIndications: dvt ppx mg) by mouth daily buprenorphine (SUBUTEX) 8 Place 1 tablet (8 90 tablet 0 04/2021 MG SUBL sublingual mg) under the tongue tabletIndications: Opioid 3 times daily Dependence cholecalciferol 50 MCG Take 1 tablet (50 90 tablet 1 2020 (1999 UT) mcg) by mouth daily tabletIndications: Vitamin D Deficiency clindamycin (CLEOCIN T) 1 Apply topically 2 60 mL 0 06/2021 % external times daily lotionIndications: monomorphic follicular papules and pustules cloNIDine (CATAPRES) 0.1 Take 1 tablet (0.1 60 tablet 0 04/2021 MG tabletIndications: mg) by mouth 2 times Anxiety daily as needed (anxiety) diclofenac (VOLTAREN) 1 % Apply 2 g topically 200 g 0 0 08/21/2021 topical gelIndications: 2 times daily Acute pain of left knee divalproex sodium Take 1 tablet (500 0 11/19/2021 extended-release (DEPAKOTE mg) by mouth daily ER) 500 MG 24 hr tabletIndications: Alcohol use disorder, severe, dependence (H) fexofenadine (ELOISE) 180 Take 1 tablet (180 0 0 07/21/2021 MG tabletIndications: mg) by mouth daily irritant dermatitis as needed for allergies folic acid (FOLVITE) 1 MG Take 1 tablet (1 mg) 90 tablet 1 11/19/2021 tabletIndications: Alcohol by mouth daily use disorder, severe, dependence (H) folic acid (FOLVITE) 1 MG Take 1 tablet (1 mg) 90 tablet 1 08/21/2021 tabletIndications: Folate by mouth daily Deficiency Anemia hydrOXYzine (ATARAX) 25 MG Take 1 tablet (25 90 tablet 0 tabletIndications: mg) by mouth every 8 Anxiety, Pruritus hours as needed for anxiety lactulose (CEPHULAC) 20 GM Take 1 packet (20 g) 60 Units 0 08/21/2021 packetIndications: by mouth 2 times Constipation daily levothyroxine Take 1 tablet (125 90 tablet 0 08/23/2021 (SYNTHROID/LEVOTHROID) 125 mcg) by mouth every MCG tabletIndications: morning Hypothyroidism lidocaine (XYLOCAINE) 4 % Apply topically 50 mL 0 08/22 external Every Mon, Wed, Fri solutionIndications: pain Morning methocarbamol (ROBAXIN) Take 1 tablet (750 90 tablet 0 06/2021 750 MG tabletIndications: mg) by mouth 3 times Osteomyelitis of right daily ankle, unspecified type (H) miconazole (MICATIN) 2 % Apply topically 2 71 g 0 06/2021 external times daily powderIndications: Fungal rash of trunk mineral oil-hydrophilic Apply topically 0 022 petrolatum (AQUAPHOR) every 4 hours as external ointment needed for dry skin or irritation Multiple Vitamin Take 1 tablet by 0 11/16/2021 (DAILY-JO ANN MULTIVITAMIN) mouth daily TABSIndications: Alcohol use disorder, severe, dependence (H) nicotine (NICODERM CQ) 14 Place 1 patch onto 28 patch 11 MG/24HR 24 hr the skin every 24 patchIndications: Nicotine hours Dependence nicotine polacrilex Place 1 each (4 mg) 240 each 022 (NICORETTE) 4 MG inside cheek every gumIndications: Tobacco hour as needed for use disorder smoking cessation ondansetron (ZOFRAN ODT) 4 Take 1 tablet (4 mg) 15 tablet 0 10/18/2021 MG ODT tabIndications: by mouth every 8 Nausea hours as needed pantoprazole (PROTONIX) 40 0 2 MG EC tabletIndications: Alcoholic gastritis with hemorrhage, unspecified chronicity senna-docusate Take 2 tablets by 30 tablet 0 08/21/2021 (SENOKOT-S/PERICOLACE) mouth 2 times daily 8.6-50 MG tabletIndications: Osteomyelitis of right ankle, unspecified type (H) thiamine (B-1) 100 MG Take 1 tablet (100 30 tablet 0 2021 tabletIndications: mg) by mouth daily Osteomyelitis of right ankle, unspecified type (H) thiamine 25 mg every day 0 09/12/2021 TABSIndications: Alcohol use disorder, severe, dependence (H) venlafaxine (EFFEXOR XR) Take 1 capsule (150 30 capsule 1 150 MG 24 hr mg) by mouth daily capsuleIndications: Generalized Anxiety Disorder documented as of this encounter ED Notes Areli Lopez RN - 11/30/2021 2:19 PM CDT Presents to ED with c/o R calf pain and firmness that has been ongoing for a few weeks. Patient stated she has had 6 surgeries on leg and had a previous blood clot. She was put on thinners but then hada GI bleed so she was taken off. Denies any SOB Triage Assessment Row Name 11/30/21 1419 Triage Assessment (Adult) Airway WDL WDL Respiratory WDL Respiratory WDL WDL Cardiac WDL Cardiac WDL WDL documented in this encounter Plan of Treatment Upcoming Encounters Date Type Specialty Care Team Description 12/20/2021 Office Visit Wound Care Luis Camara DPM [address] [place], [place] [address] (Wo rk) 01/21/2022 Office Visit Gastroenterology Juanis Levi [address] [place] [address] Luis Fernando Miles MD 6 [facility] [address] [place] [address] documented as of this encounter Visit Diagnoses Not on filedocumented in this encounter Additional Health Concerns Infection Onset Date Last Indicated Resolved Time MRSAComment: Added from external infection. 11/07/201406/18 Assessment Noted Time PHQ-9 Depression Total Score: 3 11/19/2021 11:45 AM CD T documented as of this encounter Care Teams Fisherman Helper Relationship Specialty Start Date End Date Juanis Levi PCP - General Addiction Medicine 06/29/[address] [place] [phone] Stephani Pina, Assigned PCP 02/25/21 NUMERICAL CONTROL MACHINE MACHINIST SPRING COILER [address] [place], [place] [address] Elsa Yeh, Registered Nurse Infectious Diseases 07/25/21 RN Rogelio Treadwell Assigned Musculoskeletal 08/04/21 MD August Provider [address] [place], [place] [address] Luis Camara MD Podiatry 08/16/21 CALVIN Burnett [address] [place], [place] [address] Sintia Lange, Assigned Surgical 09/08/21 PA-C Provider 909 [facility] 4TH [place] [address] Landon Warren MD Gastroenterology 11/21/21 MD Luis Fernando [address] [place] [address] [address] [place], [place] [address] documented as of this encounter
--- OUTSIDE RECORDS SUMMARY | 2021-12-05 19:17 | XMS_ITS | Encounter Summary ---
:1980 Author Organization [facility] Address [address] [place] [address] Care Team Providers Name Role Phone Stephnai Pina MEDICINE AND HEALTH SERVICE MANAGER SLAB TRIPPER Unavailable [phone] Juanis Levi Primary Care Provider Elsa Yeh RN Unavailable Unavailable Rogelio Treadwell MD Unavailable [phone] Luis Camara DPM Unavailable [phone] Camryn Christina MD Unavailable Sintia Lange PA-C Unavailable Luis Fernando Miles MD Unavailable [phone] Reason for Visit Reason Onset Date Comments Erroneous encounter-disregard 08/27/2021 Encounter Details Date Type Department Care Team Description 08/27/2021 Telephone [facility] Unknown Erroneous Dermatology Clinic encounter -disregard [address] Floor [place] [phone] Social History Tobacco Use Types Packs/Day Years Used Date Smoking Tobacco: Former Cigarettes 0.3 10 Smokeless Tobacco: Never Comments: 5-8 cigarettes a day (hasn't s moked since in transitional care 07/23/21) Alcohol Use Standard Drinks/Week Comments Not Currently 0 (1 standard drink = 0.6 oz pure alcoho l) sober since 05/08 Sex Assigned at Date Recorded Female 01/14/2020 10:57 AM CAST IRON DRAIN PIPE LAYER COVID-19 Exposure Response Date Recorded In the [...] Visit Wound Care Luis Camara DPM [address] [place], [place] [phone] (Wo rk) 01/21/2022 Office Visit Gastroenterology Juanis Levi [address] [place] [address] Luis Fernando Miles MD [address] [facility] [address] [place], [place] [address] documented as of this encounter Visit Diagnoses Not on filedocumented in this encounter Additional Health Concerns Infection Onset Date Last Indicated Resolved Time MRSAComment: Added from external infection. 11/07/2014 05/2 02/2021 Assessment Noted Time PHQ-9 Depression Total Score: 2 12/15/2020 1:07 PM CDT documented as of this encounter Care Teams Director Of Field Sales Relationship Specialty Start Date End Date Juanis Levi PCP - General Addiction Medicine 06/29/21 [address] [place] [address] Stephani Pina, Assigned PCP 02/25/21 MEDICINE AND HEALTH SERVICE MANAGER SLAB TRIPPER [address] [place], [place] [address] Elsa Yeh, Registered Nurse Infectious Diseases 07/25/21 Rogelio Wilson Assigned Musculoskeletal 08/04/21 MD August Provider [address] [place] [address] Luis Camara MD Podiatry 08/16/21 CALVIN Burnett [address] [place] [address] Camryn Christina Assigned Surgical 09/01/21 09/07/21 MD Lexie Provider [address] [facility] [address] [place] [address] Sintia Lange, Assigned Surgical 09/08/21 PAMcC Provider [address] [facility] [address] [place] [address] Landon Warren MD Gastroenterology 11/21/21 MD Luis Fernando [address] [facility] [address] [place] [address] documented as of this encounter
--- OUTSIDE RECORDS SUMMARY | 2021-12-05 19:17 | XMS_ITS | Encounter Summary ---
:1980 Author Organization [facility] Address [address] [place] [address] Care Team Providers Name Role Phone Stephani Pina HERB DIGGER SENIOR PIPING DESIGNER Unavailable [phone] Juanis Levi Primary Care Provider Elsa Yeh RN Unavailable Unavailable Rogelio Treadwell MD Unavailable [phone] Luis Camara DPM Unavailable [phone] Reason for Visit Reason Comments Orders DME ORDER Encounter Details Date Type Department Care Team Description 08/30/2021 Documentation Only [facility] Camryn Christina (DME ORDER) Plastic and MD Lexie Reconstructive Surgery [address] [place] [address] 195 909 [place], [place] 4th Floor [address] [place], [place] [phone] [address] (Work) [phone] Social History Tobacco Use Types Packs/Day Years Used Date Smoking Tobacco: Former Cigarettes 0.3 10 Smokeless Tobacco: Never Comments: 5-8 cigarettes a day (hasn't s moked since in transitional care 07/23/21) Alcohol Use Standard Drinks/Week Comments Not Currently 0 (1 standard drink = 0.6 oz pure alcoho l) sober since 05/08 Sex Assigned at Date Recorded Female 01/14/2020 10:57 AM PROGRAM 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 documented as of this encounter Plan of Treatment Upcoming Encounters Date Type Specialty Care Team Description 12/20/2021 Office Visit Wound Care Luis Camara DPM 909 [place] [address] (Wo rk) 01/21/2022 Office Visit Gastroenterology Juanis Levi 2450 [place] [address] Luis Fernando Miles MD [address] [address] documented as of this encounter Visit Diagnoses Diagnosis Other complications of procedures, not e lsewhere classified, subsequent encounter - Primary documented in this encounter Additional Health Concerns Infection Onset Date Last Indicated Resolved Time MRSAComment: Added from external infection. 11/07/201406/18 Assessment Noted Time PHQ-9 Depression Total Score: 2 12/15/2020 1:07 PM CDT documented as of this encounter Care Teams Stem Roller Or Crusher Operator Relationship Specialty Start Date End Date Juanis Levi PCP - General Addiction Medicine 06/29/[address] [place] [address] Stephani Pina, Assigned PCP 02/25/21 HERB DIGGER SENIOR PIPING DESIGNER [address] [place], [place] [address] Elsa Yeh, Registered Nurse Infectious Diseases 07/25/21 RN Rogelio Treadwell Assigned Musculoskeletal 08/04/21 MD August Provider 909 [place] [address] Luis Camara MD Podiatry 08/16/21 CALVIN Burnett 909 [place] [address] documented as of this encounter
--- OUTSIDE RECORDS SUMMARY | 2021-12-05 19:17 | XMS_ITS | Encounter Summary ---
:1980 Author Organization [facility] Address [address] [place] [address] Care Team Providers Name Role Phone Stephani Pina JUNIOR NETWORK ENGINEER CASE COORDINATOR Unavailable [phone] Juanis Levi Primary Care Provider Elsa Yeh RN Unavailable Unavailable Rogelio Treadwell MD Unavailable [phone] Luis Camara DPM Unavailable [phone] Encounter Details Date Type Department Care Team [...] at Date Recorded Female 01/14/2020 10:57 AM ACCREDITED FARM MANAGER COVID-19 Exposure Response Date Recorded In the last 10 days, have you been in contact with No / Unsu re 08/23/2021 10:57 AM CDT someone who was confirmed or suspected to have Coronavirus/COVID-19? documented as of this encounter Plan of Treatment Upcoming Encounters Date Type Specialty Care Team Description 12/20/2021 Office Visit Wound Care Luis Camara, DPM 909 [place] [address] (Wo rk) 01/21/2022 Office Visit Gastroenterology Juanis Levi 2450 [place] [address] Luis Fernando Miles MD 6 [facility] [address] [place], [place] [address] documented as of this encounter Visit Diagnoses Not on filedocumented in this encounter Additional Health Concerns Infection Onset Date Last Indicated Resolved Time MRSAComment: Added from external infection. 11/07/201406/18 Assessment Noted Time PHQ-9 Depression Total Score: 2 12/15/2020 1:07 PM CDT documented as of this encounter Care Teams Construction Carpenters Helper Relationship Specialty Start Date End Date Juanis Levi PCP - General Addiction Medicine 06/29/[address] [place] [phone] Stephani Pina, Assigned PCP 02/25/21 JUNIOR NETWORK ENGINEER CASE COORDINATOR [address] [place], [place] [address] Elsa Yeh, Registered Nurse Infectious Diseases 07/25/21 RN Rogelio Treadwell Assigned Musculoskeletal 08/04/21 MD August Provider 909 [place], [place] [address] Luis Camara MD Podiatry 08/16/21 CALVIN Burnett 909 [place], [place] [address] documented as of this encounter
--- OUTSIDE RECORDS SUMMARY | 2021-12-05 19:17 | XMS_ITS | Encounter Summary ---
:1980 Author Organization [place] Address [address] [place] [address] Care Team Providers Name Role Phone Stephani Pina LOBBY ATTENDANT FAUCETS ASSEMBLER Unavailable [phone] Juanis Levi Primary Care Provider Elsa Yeh RN Unavailable Unavailable Rogelio Treadwell MD Unavailable [phone] Luis Camara DPM Unavailable [phone] Encounter Details Date Type Department Care Team [...] Recorded Female 01/14/2020 10:57 AM REIMBURSEMENT LIAISON COVID-19 Exposure Response Date Recorded In the last 10 days, have you been in contact with No / Unsu re 08/22/2021 9:42 AM CDT someone who was confirmed or suspected to have Coronavirus/COVID-19? documented as of this encounter Plan of Treatment Upcoming Encounters Date Type Specialty Care Team Description 12/20/2021 Office Visit Wound Care Luis Camara, DPM 909 [place] [address] (Wo rk) 01/21/2022 Office Visit Gastroenterology Juanis Levi 2450 [place] [address] Luis Fernando Miles MD 6 [facility] [address] [place], [place] [address] documented as of this encounter Visit Diagnoses Not on filedocumented in this encounter Additional Health Concerns Infection Onset Date Last Indicated Resolved Time MRSAComment: Added from external infection. 11/07/201406/18 Assessment Noted Time PHQ-9 Depression Total Score: 2 12/15/2020 1:07 PM CDT documented as of this encounter Care Teams Laminating Machine Tender Relationship Specialty Start Date End Date Juanis Levi PCP - General Addiction Medicine 06/29/[address] [place] [phone] Stephani Pina, Assigned PCP 02/25/21 LOBBY ATTENDANT FAUCETS ASSEMBLER [address] [place], [place] [address] Elsa Yeh, Registered Nurse Infectious Diseases 07/25/21 RN Rogelio Treadwell Assigned Musculoskeletal 08/04/21 MD August Provider 909 [place], [place] [address] Luis Camara MD Podiatry 08/16/21 CALVIN Burnett 909 [place], [place] [address] documented as of this encounter
--- OUTSIDE RECORDS SUMMARY | 2021-12-05 19:17 | XMS_ITS | Encounter Summary ---
:1980 Author Organization [place] [facility] Address [address] [place] [address] Care Team Providers Name Role Phone Stephani Pina CASING SOAKER LINK 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 Unavailable [phone] Juanis Levi Primary Care Provider Elsa Yeh RN Unavailable Unavailable Rogelio Treadwell MD Unavailable [phone] Luis Camara DPM Unavailable [phone] Reason for Visit Reason Comments TESSY Styles, is being seen today fo r a 1 week post-op DOS 08/15 Encounter Details Date Type Department Care Team Description 08/22/2021 Office Visit [facility] Camryn Christina surgical Plastic and MD Lexie wound, subsequent Reconstructive Surgery [address] en counter ([facility] 195 Dx) 909 [facility] [address] [place], [place] 4th Floor [address] [place], [place] [phone] [address] (Work) [phone] Social History Tobacco Use Types Packs/Day Years Used Date Smoking Tobacco: Former Cigarettes 0.3 10 Smokeless Tobacco: Never Comments: 5-8 cigarettes a day (hasn't s moked since in transitional care 07/23/21) Alcohol Use Standard Drinks/Week Comments Not Currently 0 (1 standard drink = 0.6 oz pure alcoho l) sober since 05/08 Sex Assigned at Date Recorded Female 01/14/2020 10:57 AM ASSISTANT PUBLIC DEFENDER COVID-19 Exposure Response Date Recorded In the [...] Visit Wound Care Luis Camara DPM 909 [place], [place] [address]45 (Wo rk) 01/21/2022 Office Visit Gastroenterology Juanis Levi 2450 [place] [address] Luis Fernando Miles MD 516 [facility] [address] [place], [place] [address] documented as of this encounter Visit Diagnoses Diagnosis Non-healing surgical wound, subsequent e ncounter - Primary documented in this encounter Additional Health Concerns Infection Onset Date Last Indicated Resolved Time MRSAComment: Added from external infection. 11/07/201406/18 Assessment Noted Time PHQ-9 Depression Total Score: 2 12/15/2020 1:07 PM CDT documented as of this encounter Care Teams Patient Services Assistant Relationship Specialty Start Date End Date Juanis Levi PCP - General Addiction Medicine 06/29/21 2450 [place] [address] Stephani Pina, Assigned PCP 02/25/21 CASING SOAKER LINK 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 [address] [place] [address] Elsa Yeh, Registered Nurse Infectious Diseases 07/25/21 RN Rogelio Treadwell Assigned Musculoskeletal 08/04/21 MD August Provider 9 [place] [address] Luis Camara MD Podiatry 08/16/21 CALVIN Burnett 909 [place] [address] documented as of this encounter
--- OUTSIDE RECORDS SUMMARY | 2021-12-05 19:17 | XMS_ITS | Encounter Summary ---
:1980 Author Organization [facility] Address [address] [place] [address] Care Team Providers Name Role Phone Stephani Pina FLATBED COMPANY DRIVER FACILITY MAINTENANCE WORKER Unavailable [phone] Juanis eLvi Primary Care Provider Elsa Yeh RN Unavailable Unavailable Rogelio Treadwell MD Unavailable [phone] Luis Camara DPM Unavailable [phone] Camryn Christina MD Unavailable Sintia Lange PA-C Unavailable Luis Fernando Miles MD Unavailable [phone] Reason for Visit Reason Onset Date Comments Call Back 08/27/2021 Encounter Details Date Type Department Care Team Description 08/27/2021 Telephone [facility] Plastic and Camryn Christina Call Back Reconstructive Surgery Clinic [address] 195 9 [place] [phone] Floor [place] [phone] Social History Tobacco Use Types Packs/Day Years Used Date Smoking Tobacco: Former Cigarettes 0.3 10 Smokeless Tobacco: Never Comments: 5-8 cigarettes a day (hasn't s moked since in transitional care 6/6/22) Alcohol Use Standard Drinks/Week Comments Not Currently 0 (1 standard drink = 0.6 oz pure alcoho l) sober since 05/08 Sex Assigned at Date Recorded Female 01/14/2020 10:57 AM TOY PACKER COVID-19 Exposure Response Date Recorded In the [...] Mon-Fri with questions or concerns through a [employer] message via your doctor's name (most efficient) or, call [phone]. For urgent medical issues that cannot wait, call the clinic at [phone] Mon- Fri 8:-4:30. If you need help over the weekend you can call the hospital to speak with the on-call resident. Thatnumber is [phone]. Telephone Encounter - Joseph Farmer - 08/27/2021 3:53 PM CDT [facility] Call Center Phone Message May [...] Visit Wound Care Luis Camara DPM 909 [place], [place] [address]27[address] (Wo rk) 01/21/2022 Office Visit Gastroenterology Juanis Levi 2450 [place] [address] Luis Fernando Miles MD [address] [address] documented as of this encounter Visit Diagnoses Not on filedocumented in this encounter Additional Health Concerns Infection Onset Date Last Indicated Resolved Time MRSAComment: Added from external infection. 11/07/2014 0502/2021 Assessment Noted Time PHQ-9 Depression Total Score: 2 12/15/2020 1:07 PM CDT documented as of this encounter Care Teams Employee Training Specialist Relationship Specialty Start Date End Date Juanis Levi PCP - General Addiction Medicine 06/29/[address] [place] [address] Stephani Pina, Assigned PCP 02/25/21 FLATBED COMPANY DRIVER FACILITY MAINTENANCE WORKER [address] [place], [place] [address] Elsa Yeh, Registered Nurse Infectious Diseases 07/25/21 RN Rogelio Treadwell Assigned Musculoskeletal 08/04/21 MD August Provider 909 [place] [address] Luis Camara MD Podiatry 08/16/21 CALVIN Burnett 909 [place] [address] Camryn Christina Assigned Surgical 09/01/21 09/07/21 MD Lexie Provider 420 [facility] 195 [place] [address] Sintia Lange, Assigned Surgical 09/08/21 PA-C Provider 909 [facility] 4TH FLOOR [place], [place] [address] Landon Warren MD Gastroenterology 11/21/21 MD Luis Fernando 516 [facility] [address] [place] [address] documented as of this encounter
--- OUTSIDE RECORDS SUMMARY | 2021-12-05 19:17 | XMS_ITS | Encounter Summary ---
:1980 Author Organization [place] [facility] Address [address] [place] [address] Care Team Providers Name Role Phone Stephani Pina MORNING SHOW HOST FILEMAKER DEVELOPER Unavailable [phone] Juanis Levi Primary Care Provider Elsa Yeh RN Unavailable Unavailable Rogelio Treadwell MD Unavailable [phone] Luis Camara DPM Unavailable [phone] Sintia Lange PA-C Unavailable Encounter Details [...] Date Recorded Female 01/14/2020 10:57 AM CHIEF YEOMAN COVID-19 Exposure Response Date Recorded In the last 10 days, have you been in contact Unable to asse ss 10/18/2021 4:13 PM CDT with someone who was confirmed or suspected to have Coronavirus/COVID-19? documented as of this encounter Plan of Treatment Upcoming Encounters Date Type Specialty Care Team Description 12/20/2021 Office Visit Wound Care Luis Camara DPM 909 [place], [place] 505685 (Wo rk) 01/21/2022 Office Visit Gastroenterology Juanis Levi 2450 [place] [phone] Luis Fernando Miles MD [address] [address] documented as of this encounter Visit Diagnoses Not on filedocumented in this encounter Additional Health Concerns Infection Onset Date Last Indicated Resolved Time MRSAComment: Added from external infection. 11/07/201406/18 Assessment Noted Time PHQ-9 Depression Total Score: 8 10/18/2021 3:15 PM CDT documented as of this encounter Care Teams Debt Counselor Relationship Specialty Start Date End Date Juanis Levi PCP - General Addiction Medicine 06/29/21 2450 [place] [address] Stephani Pina, Assigned PCP 02/25/21 MORNING SHOW HOST FILEMAKER DEVELOPER [address] [facility] 700 [place], [place] [address] Elsa Yeh, Registered Nurse Infectious Diseases 07/25/21 Rogelio Wilson Assigned Musculoskeletal 08/04/21 MD August Provider [address] [place] [address]65405 Luis Camara MD Podiatry 08/16/21 CALVIN Burnett [address] [place] [address] Sintia Lange, Assigned Surgical 09/08/21 PA-C Provider [address] [place] [address]23665 documented as of this encounter
--- OUTSIDE RECORDS SUMMARY | 2021-12-05 19:17 | XMS_ITS | Encounter Summary ---
:1980 Author Organization [place] Address [address] [place] [address] Care Team Providers Name Role Phone Stephani Pina FALSEWORK BUILDER SKIN WASHER Unavailable [phone] Juanis Levi Primary Care Provider Elsa Yeh RN Unavailable Unavailable Rogelio Treadwell MD Unavailable [phone] Luis Camara DPM Unavailable [phone] Sintia Lange PA-C Unavailable Reason for Visit Reason Onset Date Comments Appointment 11/15/2021 Encounter Details Date Type Department Care Team Description 11/15/2021 Telephone [facility] Brittnee Cyr LPN Appointment (/) [place] [phone] Social History Tobacco Use Types Packs/Day Years Used Date Smoking Tobacco: Every Day Cigarettes 0.3 10 Smokeless Tobacco: Never Comments: 5-8 cigarettes a day (hasn't s moked since in transitional care 07/23/21) Alcohol Use Standard Drinks/Week Comments Not Currently 0 (1 standard drink = 0.6 oz pure alcoho l) sober since 05/08 Sex Assigned at Date Recorded Female 01/14/2020 10:57 AM E MERCHANT COVID-19 Exposure Response Date Recorded In the [...] was asked to call or send a [employer] message if they had any concerns regarding this appointment as they have no showed 3x now. documented in this encounter Plan of Treatment Upcoming Encounters Date Type Specialty Care Team Description 12/20/2021 Office Visit Wound Care Luis Camara DPM 909 [place], [place] [address]345 (Wo rk) 01/21/2022 Office Visit Gastroenterology Juanis Levi 2450 [place] [address] Luis Fernando Miles MD 516 [facility] 2[address] [place], [place] [address] documented as of this encounter Visit Diagnoses Not on filedocumented in this encounter Additional Health Concerns Infection Onset Date Last Indicated Resolved Time MRSAComment: Added from external infection. 11/07/201406/18 Assessment Noted Time PHQ-9 Depression Total Score: 8 10/18/2021 3:15 PM CDT documented as of this encounter Care Teams Vehicle Assembler Relationship Specialty Start Date End Date Juanis Levi PCP - General Addiction Medicine 06/29/[address] [place] [address] Stephani Pina, Assigned PCP 02/25/21 FALSEWORK BUILDER SKIN WASHER [address] [facility] 700 [place] [address] Elsa Yeh, Registered Nurse Infectious Diseases 07/25/21 RN Rogelio Treadwell Assigned Musculoskeletal 08/04/21 MD August Provider [address] [place] [address] Luis Camara MD Podiatry 08/16/21 CALVIN Burnett [address] [place] [address] Sintia Lange, Assigned Surgical 09/08/21 PA-C Provider [address] [place] [address] documented as of this encounter
--- OUTSIDE RECORDS SUMMARY | 2021-12-05 19:17 | XMS_ITS | Encounter Summary ---
:1980 Author Organization [place] Address [address] [place] [address] Care Team Providers Name Role Phone Stephani Pina RIM FIRE PRIMING TOOL SETTER MIDDLE SCHOOL ENGLISH TEACHER Unavailable [phone] Juanis Levi Primary Care Provider Elsa Yeh RN Unavailable Unavailable Rogelio Treadwell MD Unavailable [phone] Luis Camara DPM Unavailable [phone] Sintia Lange PA-C Unavailable Encounter Details [...] Date Recorded Female 01/14/2020 10:57 AM LICENSED PRACTICAL VOCATIONAL NURSE COVID-19 Exposure Response Date Recorded In the last 10 days, have you been in contact Unable to asse ss 11/19/2021 12:39 PM CDT with someone who was confirmed or suspected to have Coronavirus/COVID-19? documented as of this encounter Plan of Treatment Upcoming Encounters Date Type Specialty Care Team Description 12/20/2021 Office Visit Wound Care Luis Camara DPM 909 [place], [place] 450555 (Wo rk) 01/21/2022 Office Visit Gastroenterology Juanis Levi 2450 [place] [phone] Luis Fernando Miles MD [address] [address] documented as of this encounter Visit Diagnoses Not on filedocumented in this encounter Additional Health Concerns Infection Onset Date Last Indicated Resolved Time MRSAComment: Added from external infection. 11/07/201406/18 Assessment Noted Time PHQ-9 Depression Total Score: 3 11/19/2021 11:45 AM CD T documented as of this encounter Care Teams Liquid Loader Relationship Specialty Start Date End Date Juanis Levi PCP - General Addiction Medicine 06/29/21 2450 [place] [address] Stephani Pina, Assigned PCP 02/25/21 RIM FIRE PRIMING TOOL SETTER MIDDLE SCHOOL ENGLISH TEACHER [address] [place], [place] [address] Elsa Yeh, Registered Nurse Infectious Diseases 07/25/21 Rogelio Wilson Assigned Musculoskeletal 08/04/21 MD August Provider [address] [place] [address] 851485 Luis Camara MD Podiatry 08/16/21 CALVIN Burnett [address] [place] [address] 346935 Sintia Lange, Assigned Surgical 09/08/21 PA-C Provider [address] [place] [address] 596205 documented as of this encounter
--- OUTSIDE RECORDS SUMMARY | 2021-12-05 19:17 | XMS_ITS | Encounter Summary ---
:1980 Author Organization [place] Address [address] [place] [address] Care Team Providers Name Role Phone Stephani Pina COMPOSITION SIDING WORKER BUILDING OPERATOR Unavailable [phone] Juanis Levi Primary Care Provider Elsa Yeh RN Unavailable Unavailable Rogelio Treadwell MD Unavailable [phone] Luis Camara DPM Unavailable [phone] Sintia Lange PA-C Unavailable Luis Fernando Miles MD Unavailable [phone] Encounter Details Date Type Department Care Team Description 12/03/2021 Travel Social History Tobacco Use Types Packs/Day Years Used Date Smoking Tobacco: Every Day Cigarettes 0.3 10 Smokeless Tobacco: Never Comments: 5-8 cigarettes a day (hasn't s moked since in transitional care 07/23/21) Alcohol Use Standard Drinks/Week Comments Not Currently 0 (1 standard drink = 0.6 oz pure alcoho l) sober since 05/08 Sex Assigned at Date Recorded Female 01/14/2020 10:57 AM PRESS TENDER INCENDIARY GRENADE COVID-19 Exposure Response Date Recorded In the last 10 days, have you been in Unable to assess 12:39 PM CDT contact with someone who was confirmed or suspected to have Coronavirus/COVID-19? documented as of this encounter Plan of Treatment Upcoming Encounters Date Type Specialty Care Team Description 12/20/2021 Office Visit Wound Care Luis Camara DPM 909 [place], [place] [address]25 (Wo rk) 01/21/2022 Office Visit Gastroenterology Juanis Levi 2450 [place] [address] Luis Fernando Miles MD 6 [facility] 2A [place], [place] 21[address] documented as of this encounter Visit Diagnoses Not on filedocumented in this encounter Additional Health Concerns Infection Onset Date Last Indicated Resolved Time MRSAComment: Added from external infection. 11/07/201406/18 Assessment Noted Time PHQ-9 Depression Total Score: 3 11/19/2021 11:45 AM CD T documented as of this encounter Care Teams Director Safety Council Relationship Specialty Start Date End Date Juanis Levi PCP - General Addiction Medicine 06/29/[address] [place] [address] Stephani Pina, Assigned PCP 02/25/21 COMPOSITION SIDING WORKER BUILDING OPERATOR [address] [place] [address] Elsa Yeh, Registered Nurse Infectious Diseases 07/25/21 Rogelio Wilson Assigned Musculoskeletal 08/04/21 MD August Provider [address] [place] [address] 247225 Luis Camara MD Podiatry 08/16/21 CALVIN Burnett [address] [place] [address] 210135 Sintia Lange, Assigned Surgical 09/08/21 PA-C Provider [address] [place] [address] [place], [place] 357395 Landon Warren MD Gastroenterology 11/21/21 MD Luis Fernando 6 [facility] 2A [place], [place] [address] documented as of this encounter
--- OUTSIDE RECORDS SUMMARY | 2021-12-05 19:17 | XMS_ITS | Encounter Summary ---
:1980 Author Organization [place] Address [address] [place] [address] Care Team Providers Name Role Phone Stephani Pina FARZANA COSTUME DIRECTOR Unavailable [phone] Juanis Levi Primary Care Provider Elsa Yeh RN Unavailable Unavailable Rogelio Treadwell MD Unavailable [phone] Luis Camara DPM Unavailable [phone] Encounter Details Date Type Department Care Team [...] Recorded Female 01/14/2020 10:57 AM ROUTE DELIVERY 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 documented as of this encounter Plan of Treatment Upcoming Encounters Date Type Specialty Care Team Description 12/20/2021 Office Visit Wound Care Luis Camara, DPM [address] [place] [address] (Wo rk) 01/21/2022 Office Visit Gastroenterology Juanis Levi [address] [place] [address] Luis Fernando Miles MD 6 [facility] PWB 2A [id number] documented as of this encounter Visit Diagnoses Not on filedocumented in this encounter Additional Health Concerns Infection Onset Date Last Indicated Resolved Time MRSAComment: Added from external infection. 11/07/201406/18 Assessment Noted Time PHQ-9 Depression Total Score: 2 12/15/2020 1:07 PM CDT documented as of this encounter Care Teams Odd Ticket Clerk Relationship Specialty Start Date End Date Juanis Levi PCP - General Addiction Medicine 06/29/[address] [place] [phone] Stephani Pina, Assigned PCP 02/25/21 LOSS PREVENTION AUDITOR COSTUME DIRECTOR [address] [place] [id number] Elsa Yeh, Registered Nurse Infectious Diseases 07/25/21 RN Rogelio Treadwell Assigned Musculoskeletal 08/04/21 MD August Provider [address] [place], [place] [address] Luis Camara MD Podiatry 08/16/21 CALVIN Burnett [address] [place], [place] [address] documented as of this encounter
--- OUTSIDE RECORDS SUMMARY | 2021-12-05 19:17 | XMS_ITS | Encounter Summary ---
:1980 Author Organization [place] Address [address] [place] [address] Care Team Providers Name Role Phone Stephani Pina METAL DOOR ASSEMBLER SENIOR GRAPHIC DESIGNER Unavailable [phone] Juanis Levi Primary Care Provider Elsa Yeh RN Unavailable Unavailable Rogelio Treadwell MD Unavailable [phone] Luis Camara DPM Unavailable [phone] Reason for Visit Reason Comments Surgical Followup 2 week follow up -- DOS 08/15 Encounter Details Date Type Department Care Team Description 08/28/[address] [facility] Sintia Lange, S/P fl ap graft Plastic and PA-C (Primary Dx) Reconstructive Surgery 909 [facility] 4TH FLOOR [address] [place], [place] 4th [facility] [address] [place], [place] [phone] [address] (Work) [phone] Social History Tobacco Use Types Packs/Day Years Used Date Smoking Tobacco: Former Cigarettes 0.3 10 Smokeless Tobacco: Never Comments: 5-8 cigarettes a day (hasn't s moked since in transitional care 07/23/21) Alcohol Use Standard Drinks/Week Comments Not Currently 0 (1 standard drink = 0.6 oz pure alcoho l) sober since 05/08 Sex Assigned at Date Recorded Female 01/14/2020 10:57 AM DIRECTOR OF DESIGN COVID-19 Exposure Response Date Recorded In the [...] Care Luis Camara DPM [address] [place], [place] [address]95 (Wo rk) 01/21/2022 Office Visit Gastroenterology Juanis Levi [address] [place] [address] Luis Fernando Miles MD [address] [id number] documented as of this encounter Visit Diagnoses Diagnosis S/P flap graft - Primary Other postprocedural status documented in this encounter Additional Health Concerns Infection Onset Date Last Indicated Resolved Time MRSAComment: Added from external infection. 11/07/2014 05/2 02/2021 Assessment Noted Time PHQ-9 Depression Total Score: 2 12/15/2020 1:07 PM CDT documented as of this encounter Care Teams Stock Preparation Operator Relationship Specialty Start Date End Date Juanis Levi PCP - General Addiction Medicine 06/29/21 [address] [place] [phone] Stephani Pina, Assigned PCP 02/25/21 METAL DOOR ASSEMBLER SENIOR GRAPHIC DESIGNER [address] [place] [address] Elsa Yeh, Registered Nurse Infectious Diseases 07/25/21 RN Rogelio Treadwell Assigned Musculoskeletal 08/04/21 MD August Provider 9 [place] [address] Luis Camara MD Podiatry 08/16/21 CALVIN Burnett [address] [place] [address] documented as of this encounter
--- OUTSIDE RECORDS SUMMARY | 2021-12-05 19:17 | XMS_ITS | Clinical Summary ---
:1980 Author Organization [place] Address [address] [place] [address] Care Team Providers Name Role Phone Stephani Pina FARZANA DRAWING TRACER Unavailable [phone] Juanis Levi Primary Care Provider Elsa Yeh RN Unavailable Unavailable Rogelio Treadwell MD Unavailable [phone] Luis Camara DPM Unavailable [phone] Sintia Lange PA-C Unavailable Luis Fernando Miles MD Unavailable [phone] Allergies No known active allergies Medications [...] TABSIndications: Alcohol use disorder, severe, dependence (H) pantoprazole 0 Active (PROTONIX) 40 MG EC [...] disorder, severe, dependence (H) naloxone (NARCAN) 4 [place] 1 spray 0.2 mL Discontinued MG/0.1ML nasal (4 mg) into one [...] tongue 3 tabletIndications: times daily Opioid Dependence sucralfate Take 1 g by 0 11/30/19 (CARAFATE) 1 mouth 2 22 GM/10ML suspensionIndicatio ns: Alcoholic gastritis with hemorrhage, unspecified chronicity Active Problems Problem Noted Date Non-healing surgical wound, subsequent encounter 07/31 Overview: Added automatically from request for rohan adams [id number] Physical deconditioning 07/23/2021 Osteomyelitis of right ankle, [...] rounds with Dr Alma Leyva. Referral to software installation engineer placed. Family history of SIDS (sudden syndrome) [...] Encounters Date Type Specialty Care Team Description 12/03/2021 Telephone Wound Care Luis Camara Call Back (Q uestions ) CALVIN Burnett 12/03/2021 Travel 11/30/2021 Emergency EMERGENCY MEDICINE 11/30/2021 Travel 11/21/2021 Travel 11/19/2021 Travel 11/15/2021 Telephone Wound Care Brittnee Cyr LPN Appoin tment (/) 10/18/2021 Travel from Last 3 Months Immunizations Name [...] Date Recorded Female 01/14/2020 10:57 AM ARTIFICIAL FOLIAGE ARRANGER COVID-19 Exposure Response Date Recorded In the [...] (185 lb) 11/30/2021 2:18 PM CDT Height 167.6 cm (5' 6) 08/22/2021 10:04 AM CDT Body Mass Index 29.86 08/22/2021 10:04 AM CDT Plan of Treatment Upcoming Encounters Date Type Specialty Care Team Description 12/20/2021 Office Visit Wound Care Luis Camara DPM [address] [place] [address] (Wo rk) 01/21/2022 Office Visit Gastroenterology Juanis Levi [address] [place] [address] Luis Fernando Miles MD [address] [address] Health Maintenance Due Date Last [...] to Confirmation, Urine (11/19/2021 1:39 PM CDT) [facility] Method Time Signature Ethyl Negative Cutoff 500 11/20/2021 [employer] Glucuronide ng/mL 9:46 PM CDT Urine Comment: [...] tandem mass spectr ometry (LC-MS/MS). Performed By: [facility] [address] [place] [address] Stoneworking Belt Sander: Willian Swain MD, PhD Specimen Anatomical Collection Method Collection Time Receive d Time (Source) Location / / Volume Laterality Urine URINE SPECIMEN Non-blood 11/19/2021 1:39 PM 022 2:03 OBTAINED BY CLEAN Collection / CDT PM CDT CATCH PROCEDURE / Unknown Unknown Juanis Levi LAB - URINE ORDERABLES Performing Organization Address City/State/ZIP Code Phon e Number [facility] [place], [place] [phone] [address] [facility] [address] from Last 3 Months Additional Health Concerns Infection Onset Date Last Indicated MRSAComment: Added from external infection. 11/07/2014 07/07/2021 Insurance Payer Benefit Plan / Subscriber ID Effective Dates Phone Addre ss Type Group [facility] [id number] 2021-Present [phone] [address] [place] [address] Steph[facility] [address] (Home) [place], [place] [phone] [address] (Work) Advance Directives For more information, please contact: [phone] Latest Code Status on File Code Status [...] with patient/legal dec ision maker Care Teams Explosives Engineer Relationship Specialty Start Date End Date Juanis Levi PCP - General Addiction Medicine 06/29/[address] [place] [phone] Stephani Pina, Assigned PCP 02/25/21 CHOCOLATE FINISHER OPERATOR DRAWING TRACER [address] [place], [place] [phone] Elsa Yeh, Registered Nurse Infectious Diseases 07/25/21 RN Rogelio Treadwell Assigned Musculoskeletal 08/04/21 MD August Provider [address] [place] [address] Luis Camara MD Podiatry 08/16/21 CALVIN Burnett [address] [place] [address] Sintia Lange, Assigned Surgical 09/08/21 PA-C Provider [address] [place] [address] Landon Warren MD Gastroenterology 11/21/21 MD Luis Fernando [address] [address]
--- OUTSIDE RECORDS SUMMARY | 2021-12-05 19:17 | XMS_ITS | Encounter Summary ---
:1980 Author Organization [place] Address [address] [place] [address] Care Team Providers Name Role Phone Stephani Pina APRN GENERAL LEDGER ACCOUNTANT Unavailable [phone] Juanis Levi Primary Care Provider Elsa Yeh RN Unavailable Unavailable Rogelio Treadwell MD Unavailable [phone] Luis Camara DPM Unavailable [phone] Sintia Lange PA-C Unavailable Luis Fernando Miles MD Unavailable [phone] Reason for Visit Reason Onset Date Comments Call Back 12/03/2021 Questions Encounter Details Date Type Department Care Team Description 12/03/2021 Telephone [facility] Wound Luis Camara all Back (Questions ) Clinic Meghan Burnett DPM 909 [facility] 909 [facility] 4th [place], [place] [address] Social History Tobacco Use Types Packs/Day Years Used Date Smoking Tobacco: Every Day Cigarettes 0.3 10 Smokeless Tobacco: Never Comments: 5-8 cigarettes a day (hasn't s moked since in transitional care 07/23/21) Alcohol Use Standard Drinks/Week Comments Not Currently 0 (1 standard drink = 0.6 oz pure alcoho l) sober since 05/08 Sex Assigned at Date Recorded Female 01/14/2020 10:57 AM ROLLER MAN COVID-19 Exposure Response Date Recorded In the last 10 days, have you been in Unable to assess 12:39 PM CDT contact with someone who was confirmed or suspected to have Coronavirus/COVID-19? documented as of this encounter Miscellaneous Notes Telephone Encounter - Loan Melgar - 12/03/2021 12:40 PM CDT [facility] Phone Message May a detailed message be left on voicemail: yes Reason for Call: Other: Per pt would like to speak with RN. Per pt has a few questions. please and thank you! Action Taken: Message routed [facility] [place] Wound Travel Screening: Not Applicable documented in this encounter Plan of Treatment Upcoming Encounters Date Type Specialty Care Team Description 12/20/2021 Office Visit Wound Care Luis Camara DPM [address] [place], [place] [address] (Wo rk) 01/21/2022 Office Visit Gastroenterology Juanis Levi [address] [place] [phone] Luis Fernando Miles MD [address] [address] documented as of this encounter Visit Diagnoses Not on filedocumented in this encounter Additional Health Concerns Infection Onset Date Last Indicated Resolved Time MRSAComment: Added from external infection. 11/07/201406/18 Assessment Noted Time PHQ-9 Depression Total Score: 3 11/19/2021 11:45 AM CD T documented as of this encounter Care Teams Barn Hand Relationship Specialty Start Date End Date Juanis Levi PCP - General Addiction Medicine 06/29/[address] [place] [address] [place] [phone] Stephani Pina, Assigned PCP 02/25/21 MAIL TECHNICIAN GENERAL LEDGER ACCOUNTANT [address] [place] [address] Elsa Yeh, Registered Nurse Infectious Diseases 07/25/21 RN Rogelio Treadwell Assigned Musculoskeletal 08/04/21 MD August Provider [address] [place] [address] Luis Camara MD Podiatry 08/16/21 CALVIN Burnett [address] [place] [address] Sintia Lange, Assigned Surgical 09/08/21 PA-C Provider [address] [address] Landon Warren MD Gastroenterology 11/21/21 MD Luis Fernando [address] [place] [address] [address] [place] [address] documented as of this encounter
--- OUTSIDE RECORDS SUMMARY | 2021-12-05 19:17 | XMS_ITS | Encounter Summary ---
:1980 Author Organization [place] Address [address] [place] [address] Care Team Providers Name Role Phone Stephani Pina RISK LEAD COPING MACHINE ASSEMBLER Unavailable [phone] Juanis Levi Primary Care Provider Elsa Yeh RN Unavailable Unavailable Rogelio Treadwell MD Unavailable [phone] Luis Camara DPM Unavailable [phone] Sintia Lange PA-C Unavailable Luis Fernando Miles MD Unavailable [phone] Encounter Details Date Type Department Care [...] Date Recorded Female 01/14/2020 10:57 AM BILINGUAL HR GENERALIST COVID-19 Exposure Response Date Recorded In the last 10 days, have you been in contact Unable to asse ss 11/21/2021 10:22 AM CDT with someone who was confirmed or suspected to have Coronavirus/COVID-19? documented as of this encounter Plan of Treatment Upcoming Encounters Date Type Specialty Care Team Description 12/20/2021 Office Visit Wound Care Luis Camara DPM [address] [place], [place] [address] (Wo rk) 01/21/2022 Office Visit Gastroenterology Juanis Levi [address] [place] [address] Luis Fernando Miles MD 6 [facility] 2A [place], [place] [address] documented as of this encounter Visit Diagnoses Not on filedocumented in this encounter Additional Health Concerns Infection Onset Date Last Indicated Resolved Time MRSAComment: Added from external infection. 11/07/201406/18 Assessment Noted Time PHQ-9 Depression Total Score: 3 11/19/2021 11:45 AM CD T documented as of this encounter Care Teams Senior Property Accountant Relationship Specialty Start Date End Date Juanis Levi PCP - General Addiction Medicine 06/29/[address] [place] [address] Stephain Pina, Assigned PCP 02/25/21 RISK LEAD COPING MACHINE ASSEMBLER [address] [place] [address] Elsa Yeh, Registered Nurse Infectious Diseases 07/25/21 Rogelio Wilson Assigned Musculoskeletal 08/04/21 MD August Provider 9 [place], [place] [address] Luis Camara MD Podiatry 08/16/21 CALVIN Burnett [address] [place], [place] [address] Sintia Lange, Assigned Surgical 09/08/21 PA-C Provider 909 [facility] 4TH [place] [address] Landon Warren MD Gastroenterology 11/21/21 MD Luis Fernando 6 [facility] 2A [place], [place] [address] documented as of this encounter
--- OUTSIDE RECORDS SUMMARY | 2021-12-05 19:17 | XMS_ITS | Encounter Summary ---
:1980 Author Organization [place] Address [address] [place] [address] Care Team Providers Name Role Phone Stephani Pina TABLE SETTER QUALITY FACILITATOR Unavailable [phone] Juanis Levi Primary Care Provider Elsa Yeh RN Unavailable Unavailable Rogelio Treadwell MD Unavailable [phone] Luis Camara DPM Unavailable [phone] Encounter Details Date Type Department Care Team Description 08/29/2021 Telephone [facility] Brittnee Scott, GENARO [address] [place], [place] [phone] Social History Tobacco Use Types Packs/Day Years Used Date Smoking Tobacco: Former Cigarettes 0.3 10 Smokeless Tobacco: Never Comments: 5-8 cigarettes a day (hasn't s moked since in transitional care 07/23/21) Alcohol Use Standard Drinks/Week Comments Not Currently 0 (1 standard drink = 0.6 oz pure alcoho l) sober since 05/08 Sex Assigned at Date Recorded Female 01/14/2020 10:57 AM 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 Transit Bus Driver called Vijaya Styles VM to patient that home care agency was [facility] and contact info for home care agency. Transit Bus Driver also left personal office phone number, in case of follow up questions. Transit Bus Driver did not receive any follow up calls. 08/27: Per report from [facility], ANGELIKA received a call from patient re: home care on 08/27. Transit Bus Driver left Vm with home care agency to verify if patient has been seen by home care. 08/29: Received call return call from [facility]. Per Violeta at [facility] care agency visiting nurse and manager housekeeping have made multiple attempts to see patient. Patient has refused to make appointment for visits despite attempts. Reached out to mother to assist in scheduling as well, but this was also unsuccessful. Brittnee Scott Patient Auto Locator Acute Rehabilitation Unit/ Transitional Care Unit. documented in this encounter Plan of Treatment Upcoming Encounters Date Type Specialty Care Team Description 12/20/2021 Office Visit Wound Care Luis Camara DPM [address] [place] [address] (Wo rk) 01/21/2022 Office Visit Gastroenterology Juanis Levi [address] [place] [phone] Luis Fernando Miles MD [address] [address] documented as of this encounter Visit Diagnoses Not on filedocumented in this encounter Additional Health Concerns Infection Onset Date Last Indicated Resolved Time MRSAComment: Added from external infection. 11/07/201406/18 Assessment Noted Time PHQ-9 Depression Total Score: 2 12/15/2020 1:07 PM CDT documented as of this encounter Care Teams Manager Application Relationship Specialty Start Date End Date Juanis Levi PCP - General Addiction Medicine 06/29/21 [address] [place] [phone] Stephani Pina, Assigned PCP 02/25/21 TABLE SETTER QUALITY FACILITATOR [address] [place] [address] Elsa Yeh, Registered Nurse Infectious Diseases 07/25/21 RN Rogelio Treadwell Assigned Musculoskeletal 08/04/21 MD August Provider 9 [place] [address] Luis Camara MD Podiatry 08/16/21 CALVIN Burnett [address] [place] [address] documented as of this encounter
--- OUTSIDE RECORDS SUMMARY | 2021-12-05 19:18 | XMS_ITS | Encounter Summary ---
:1980 Author Organization [place] Address [facility]0 [facility] [place] [address] Care Team Providers Name Role Phone Stephani Pina TURN DOWN ATTENDANT NATIONAL ACCOUNTS RECRUITER Unavailable [phone] Juanis Mckenzie Primary Care Provider Elsa Yeh RN Unavailable Unavailable Rogelio Treadwell MD Unavailable [phone] Luis Camara DPM Unavailable [phone] Reason for Referral Home Health Therapies & Aides (Routine: Next available opening) Specialty Diagnoses / Procedures Referred By Contact Refer red To Contact [facility] TRANSITIONAL CARE [address] [place] [address] [phone] Referral ID Status Reason Start Date Expiration Date Visits Requ ested Visits Authorized onsultation (Routine: Next available opening) - Pending Review Specialty Diagnoses / Procedures Referred By Contact Refer red To Contact Dermatology Diagnoses Steroid-induced acne Eros Recinos MD [address] [place] [address] [phone] Referral ID Status Reason Start Date Expiration Date Visits V isits Requested Authorized [id number] Pending 08/22/2021 08/22/2022 1 1 Review Reason for Visit Auth/Cert Specialty Diagnoses / Procedures Referred By Contact Refer red To Contact Rehabilitation Tr Transitional Care [address] [address] Phone: Referral ID Status Reason Start Date Expiration Date Visits Requ ested Visits Authorized [id number] 1 1 Encounter Details Date Type Department Care Team Description 07/23/2021 - [facility] Bethanie Dowd MD [address] [facility] [address] [place] [address] Osteomyelitis of right ankle, unspecifie d type (H) (Primary Dx); 08/22/2021 Encounter Transitional Care La Nena Babb MD [address] [place] [address] Alcohol use disorder, severe, dependence (H); Unit [place] Anxiety; [facility] [address] Steroid-induc ed acne; Street Non-healing surgical wound, subsequent encounter; [place], [place] Chronic hepa titis C without hepatic coma (H); [address] Tooth pain; [phone] Acute pain of l eft knee; Fungal [...] at Date Recorded Female 01/14/2020 10:57 AM TOOL CRIB ATTENDANT COVID-19 Exposure Response Date Recorded In the [...] Recinos MD - 08/21/2021 10:29 AM CDT [facility] Transitional [facility] Emergency Department Hospitalist Discharge Summary Date of Admission: 07/23/2021 [...] depression, anxiety, and tobacco abuse. She was??admitted??to [facility] on 07[facility]21 from [facility] for treatment of right ankle osteomyelitis [...] superficial soft tissue edema.? --- Transferred to [facility] on 07/06/21 --- S/p calcaneal hardware [...] at OSH. --- Wound culture here at [place] was positive for 1+ staph simulans on [...] ankle pain and immobility --- Controlled. --- Continue??SOLID TIRE FINISHER??Suboxone 8mg tid, scheduled APAP 975mg TID, Gabapentin [...] allergenic polyurethane foam dressings (Mepitac tape, Sorbiview, [id number]) over occlusive adhesive semipermeable gauze dressings; [facility] can provide more detailed recommendations --- Overall [...] chronic?? Alcohol use disorder.?? --- HCV quant 612013??at OSH. --- Continue Lactulose??20 g bid --- [...] CONSULT OCCUPATIONAL THERAPY ADULT IP CONSULT SPEECH CFO CONTROLLER ADULT IP CONSULT DERMATOLOGY IP CONSULT WOUND OSTOMY CONTINENCE NURSE IP CONSULT Code Status Full Code Time Spent on this Encounter I, Shamar Hill MD, personally saw the patient today and spent greater than 30 minutes discharging this patient. Shamar Hill MD [facility] TRANSITIONAL CARE [address] [address] Physical Exam Vital Signs: Temp: 97.8 ??F [...] bearing as tolerated on rt Foot Adult [facility] Follow-up and recommended labs and tests [...] steroid acne in 1 week Appointments on [facility] and/or [facility] (with [facility] or [facility] provider or service). Call [phone] if you haven't heard regarding these appointments [...] Qty: 90 tablet, Refills: 0 Comments: JAMES: [id number] Associated Diagnoses: Opioid use disorder, severe, in [...] 3:45 PM CDT SW was told at [facility], pt was leaving. Doctor told pt okay for discharge today. Pt would not stay any longer. Pt started calling transportation but didn't know the address. SW called [employer]. They set up [employer]. [phone]. Pt asked if PT ordered leg cart. [...] Discharge Disposition: Home . Discharge Services: Home PT/OT/professor of political science Supplies: Meds from TCU went home with pt. Pt will have to get leg cart if pt really needsit. Discharge Transportation: [employer]. [phone] JACKIE redid Bims/ 13 and PHQ 0. TUSHAR Castaneda [facility], Transitional Care Unit Social Work [facility], [address] [place] [address] (PH) [phone] Smita Stone, PT - 08/21/2021 6:06 PM CDT Physical Therapy Discharge Summary Reason for therapy discharge: Poor tolerance for therapy, all functional needs have been met at this time pending further mobilityclearance Progress towards therapy goal(s). See goals on Care Plan in [facility] electronic health record for goal [...] pt. Pt hasn't heard if letter to [facility] was received or not. Pt called while SW wasin the room. SW said all are working on pt's discharge. As soon as HC is found and transportation islined up then pt can go. Also, pt has to go to walkin clinic for meds. Pt understood this. TUSHAR Castaneda [facility], Transitional Care Unit Social Work [address] [place] [address], [address] [place] [address] () [phone] LIOT Eros Recinos MD - 08/20/2021 10:13 [...] discharge on 08/22 Dr Lizet Ibanez MD, [facility] ( Internal [facility]) Pager: [phone] Smita Stone, PT - 08/20/2021 9:17 AM [...] end on 08/21 Dr Lizet Ibanez MD, [facility] Hospitalist ( Internal medicine) Pager: [phone] LIOT Eros Recinos MD - 08/18/2021 11:05 [...] X [address] Liz[facility] MD, [facility] ( Internal medicine) Pager: [phone] Marycarmen Cross PT - 08/17/2021 4:10 PM [...] make sure a letter went out to [facility]lord saying pt has been hospitalized. Put on there dates and when expected return. SW sent fax and sent email. TUSHAR Castaneda [facility], Transitional Care Unit Social Work [address] [place] [address], 4th [place] [address] (PH) [phone] Eros Recinos MD - 08/17/2021 10:50 AM [...] Recinos MD - 08/16/2021 10:35 AM CDT [facility] Transitional Care Medicine Progress Note - Hospitalist Service Date of Admission: 07/23/2021 Assessment & Plan Stephani King is a 40 yo female??w/ h/o opioid use d/o, alcohol use disorder,??HCV, hypothyroidism, depression, anxiety, and tobacco abuse. She was??admitted to [facility] on 07/06/21 [facility] for treatment of right ankle osteomyelitis [...] superficial soft tissue edema.? --- Transferred to [facility] on 07/06/21 --- S/p calcaneal hardware [...] at OSH. --- Wound culture here at [place] was positive for 1+ staph simulans on [...] ankle pain and immobility --- Controlled. --- Continue??SOLID TIRE FINISHER??Suboxone 8mg tid, scheduled APAP 975mg TID, Gabapentin [...] allergenic polyurethane foam dressings (Mepitac tape, Sorbiview, [id number]) over occlusive adhesive semipermeable gauze dressings; WOC [...] chronic?? Alcohol use disorder.?? --- HCV quant 439596??at OSH. --- Continue Lactulose 20 g bid [...] team . Shamar Hill MD Hospitalist Service [facility] Transitional Care Securely message with the [employer] Web Console (learn more here) Text page via [employer] Paging/Directory Interval History Patent with new onset [...] from the original note were not included. [facility] Nurse Inpatient Assessment Today's Assessment: Right [...] control prior to re-starting VAC. Marilu Mar, MACHINE SCALLOP CUTTER with Ortho will order 4% topical [...] 20 Lisa Chandler RN, CWOCN Dept. Pager: [phone] Dept. Office Number: [phone] Eros Recinos MD - 08/15/2021 3:29 PM [...] MD, FACP Hospitalist ( Internal medicine) Pager: [phone] - 08/14/2021 2:03 PM [...] depression, anxiety, and tobacco abuse. She was??admitted??to [facility] on 07/06/21 as a direct transfer from [facility] for treatment of right ankle osteomyelitisby Ortho, [...] Aparicio MS, RDN, LDN TCU RD pager: [phone] Eros Recinos MD - 08/14/2021 2:00 PM [...] until [address] Liz[facility]banez MD, [facility] Hospital[facility] ( Internal medicine) Pager: [phone] Muriel Alfaro - 08/13/2021 12:50 PM CDT Pt checked with land, who did not receive lease faxed on 08/07/21. SW re-faxed lease to fax #: [phone], per pt's request. SW encouraged pt to confirm if lease wasreceived by land again. SW assured pt that if fax did not go through, then [facility] once obtained. Pt agreed. CORBIN Guaman, PHYSICAL DAMAGE APPRAISER Float Adult Acute Care Job Hand Pager: [phone] Elizabeth Howell MD - 08/13/2021 9:31 AM CDT [facility] Transitional Care Medicine Progress Note - Hospitalist Service Date of Admission: 07/23/2021 Assessment & Plan Stephani King is a 40 yo female??w/ h/o opioid use d/o, alcohol use disorder,??HCV, hypothyroidism, depression, anxiety, and tobacco abuse. She was??admitted to [facility] on 07/06/21 as adirect transfer from [facility] for treatment of right ankle osteomyelitisby Ortho, [...] superficial soft tissue edema.? --- Transferred to [facility] on 07/06/21 --- S/p calcaneal hardware [...] at OSH. --- Wound culture here at [place] was positive for 1+ staph simulans on [...] ankle pain and immobility --- Controlled. --- Continue??SOLID TIRE FINISHER??Suboxone 8mg tid, scheduled APAP 975mg TID, Gabapentin [...] allergenic polyurethane foam dressings (Mepitac tape, Sorbiview, [id number]) over occlusive adhesive semipermeable gauze dressings; [facility] can provide more detailed recommendations --- Overall [...] chronic?? Alcohol use disorder.?? --- HCV quant 745770??at OSH. --- Continue Lactulose 20 g bid [...] team . Elizabeth Howell MD Hospitalist Service [facility] Transitional Care Securely message with the [employer] Console (learn more here) Text page via [employer] Paging/Directory Interval History Rash has been stable. [...] Mendes MD - 08/12/2021 1:04 PM CDT [facility] Transitional Care Medicine Progress Note - Hospitalist Service Date of Admission: 07/23/2021 Assessment & Plan Stephani King is a 40 yo female??w/ h/o opioid use d/o, alcohol use disorder,??HCV, hypothyroidism, depression, anxiety, and tobacco abuse. She was??admitted to [facility] on 07/06/21 [facility] for treatment of right ankle osteomyelitis [...] superficial soft tissue edema.? --- Transferred to [facility] on 07/06/21 --- S/p calcaneal hardware [...] at OSH. --- Wound culture here at [place] was positive for 1+ staph simulans on [...] ankle pain and immobility --- Controlled. --- Continue??SOLID TIRE FINISHER??Suboxone 8mg tid, scheduled APAP 975mg TID, Gabapentin [...] allergenic polyurethane foam dressings (Mepitac tape, Sorbiview, [id number]) over occlusive adhesive semipermeable gauze dressings; WO [...] chronic?? Alcohol use disorder.?? --- HCV quant [id number]??at OSH. --- Continue Lactulose 20 g bid [...] care team . Kayden Mendes MD Hospitalist [facility] Transitional Care Securely message with the [employer] Console (learn more here) Text page via [facility] Paging/Directory Interval History Rash has been [...] Mendes MD - 08/08/2021 10:45 AM CDT [facility] Transitional Care Medicine Progress Note - Hospitalist Service Date of Admission: 07/23/2021 Assessment & Plan Stephani King is a 40 yo female??w/ h/o opioid use d/o, alcohol use disorder,??HCV, hypothyroidism, depression, anxiety, and tobacco abuse. She was??admitted to [facility] on 07/06/21 [facility] for treatment of right ankle osteomyelitis [...] superficial soft tissue edema.? --- Transferred to [facility] on 07/06/21 --- S/p calcaneal hardware [...] at OSH. --- Wound culture here at [place] was positive for 1+ staph simulans on [...] ankle pain and immobility --- Controlled. --- Continue??SOLID TIRE FINISHER??Suboxone 8mg tid, scheduled APAP 975mg TID, Gabapentin [...] allergenic polyurethane foam dressings (Mepitac tape, Sorbiview, [id number]) over occlusive adhesive semipermeable gauze dressings; [facility] can provide more detailed recommendations --- Overall [...] chronic?? Alcohol use disorder.?? --- HCV quant 966148??at OSH. --- Continue Lactulose 20 g bid [...] team . Kayden Mendes MD Hospitalist Service [facility] Transitional Care Securely message with the [employer] Web Console (learn more here) Text page via [employer] Paging/Directory Interval History Reports itching. Rash has [...] from the original note were not included. [facility] Nurse Inpatient Assessment Today's Assessment: Right lateral ankle wound Patient History (according to provider note(s): Per Dr Clarissa Gracia on 07/09/2021: 40 year old female w/ [...] control prior to re-starting VAC. Marilu Mar, MACHINE SCALLOP CUTTER with Ortho will order 4% topical [...] dry. Cut piece of Hydrofera blue (# [id number]) to size of wound. Moisten HFB with [...] Emily Macias RN BSN CWOCN Dept. Pager: [phone] Dept. Office Number: [phone] Breanna Newton - 08/07/2021 5:24 PM CDT SW checked in with pt. Pt didn't have the whole lease signed. Pt signed lease while SW was there. SWfaxed lease to [phone]. SW told pt to call landlord tomorrow to make sure lease was in. If not then let SW know to resend lease. TUSHAR Castaneda [facility], Transitional Care Unit Social Work [address] [place] [address], [address] [place] [address] () [phone] Kayden Mendes MD - 08/06/2021 10:44 AM CDT [facility] Transitional Care Brief Note Stephani King is [...] Howell MD - 08/05/2021 9:16 AM CDT [facility] Transitional Care Medicine Progress Note - Hospitalist Service Date of Admission: 07/23/2021 Assessment & Plan Stephani King is a 40 yo female??w/ h/o opioid use d/o, alcohol use disorder,??HCV, hypothyroidism, depression, anxiety, and tobacco abuse. She was??admitted to [facility] on 07/06/21 [facility] for treatment of right ankle osteomyelitis [...] superficial soft tissue edema.? --- Transferred to [facility] on 07/06/21 --- S/p calcaneal hardware [...] Podiatry on 08/16/21. Return to see Dr. Tredawell to discuss surgery when wounds have healed. --- Blood cx was positive for MSSA at OSH. --- Wound culture here at [place] was positive for 1+ staph simulans on [...] ankle pain and immobility --- Controlled. --- Continue??SOLID TIRE FINISHER??Suboxone 8mg tid, scheduled APAP 975mg TID, Gabapentin [...] allergenic polyurethane foam dressings (Mepitac tape, Sorbiview, [id number]) over occlusive adhesive semipermeable gauze dressings; WOC [...] chronic?? Alcohol use disorder.?? --- HCV quant 280912??at OSH. --- Continue Lactulose 20 g bid [...] team . Elizabeth Howell MD Hospitalist Service [facility] Transitional Care Securely message with the [employer] Console (learn more here) Text page via [employer] Paging/Directory Interval History Uneventful night. No complaints. [...] and they will send esperanza milanfreddy. TUSHAR Castandea [facility] [place], Transitional Care Unit Social Work [address] [place] [address] (ph) [phone] Lisa Chandler RN - 08/02/2021 12:33 PM CDT Images from the original note were not included. [facility] WO Nurse Inpatient Assessment Today's [...] control prior to re-starting VAC. Marilu Mar, MACHINE SCALLOP CUTTER with Ortho will order 4% topical [...] dry. Cut piece of Hydrofera blue (# [id number]) to size of wound. Moisten HFB with [...] 20 Lisa Chandler RN CWOCN Dept. Pager: [phone] Dept. Office Number: [phone] Sintia Lange PA-C - 08/02/2021 11:28 AM [...] tomorrow. SW and pt called jose. His plastic surgery assistant will fax lease here. Pt will [...] pm. SW let pt know. TUSHAR Castaneda [facility], Transitional Care Unit Social Work [address] [place] [address], [address] [place] [address] () [phone] Elizabeth Howell MD - 08/01/2021 11:30 AM CDT [facility] Transitional Care Medicine Progress Note - Hospitalist Service Date of Admission: 07/23/2021 Assessment & Plan Stephani King is a 40 yo female??w/ h/o opioid use d/o, alcohol use disorder,??HCV, hypothyroidism, depression, anxiety, and tobacco abuse. She was??admitted to [facility] on 07/06/21 [facility] for further care of right ankle [...] ankle pain and immobility --- Controlled. --- Continue??SOLID TIRE FINISHER??Suboxone 8mg tid, scheduled APAP 975mg TID, Gabapentin [...] allergenic polyurethane foam dressings (Mepitac tape, Sorbiview, [id number]) over occlusive adhesive semipermeable gauze dressings; [facility] can provide more detailed recommendations --- Overall [...] chronic?? Alcohol use disorder.?? --- HCV quant 047839??at OSH. --- Continue Lactulose 20 g bid [...] team . Elizabeth Howell MD Hospitalist Service [facility] Transitional Care Securely message with the [employer] Console (learn more here) Text page via [employer] Paging/Directory Interval History Uneventful night. No complaints. [...] up in bed, driftingin/out of sleep as tag writer was setting up IV abx and [...] SPIRITUAL HEALTH SERVICES SPIRITUAL ASSESSMENT Progress Note [facility] ([facility]) TCU R 410 07/31/21 REFERRAL SOURCE: Self Referral Unit Carnallite Plant Operator introduced self to Pt. She declined from receiving SHS and visit with Carnallite Plant Operator. PLAN: No follow up necessary. Lucas Allen MA, MPA Associate [employer]ite Plant Operator Pager: [phone] Leydi Meng, RONALD - 07/31/2021 9:54 AM [...] disorder,??HCV, hypothyroidism, depression, anxiety, and tobacco abuse??admitted??to [facility] by [...] kg) ASSESSED NUTRITION NEEDS Estimated Energy Needs: 3192-0584 kcals/day (25 - 30 kcals/kg) Justification: Maintenance [...] Leydi Meng MS, RD, LDN Unit Pager [phone] Weekend pager: [phone] Emily Macias RN - 07/30/2021 11:04 AM CDT Images from the original note were not included. [facility] WO Nurse Inpatient Assessment Today's [...] control prior to re-starting VAC. Marilu Mar, MACHINE SCALLOP CUTTER with Ortho will order 4% topical [...] dry. Cut piece of Hydrofera blue (# [id number]) to size of wound. Moisten HFB with [...] Emily Macias RN BSN CWOCN Dept. Pager: [phone] Dept. Office Number: [phone] LIOT Smita Stone PT - 07/30/2021 9:14 AM CDT 07/30/21 0900 Appointment Canceled Appointment Canceled Patient declined Cancel Comments PT: Pt declined due to feeling really sore from previous days of therapy, requeststo resume therapy tomorrow. Signing Clinician's Name / Credentials Signing clinician's name / credentials Smita Stone DPT [facility] PT La Nena Aguilera MD - 07/28/2021 8:01 AM CDT [facility] Transitional Care Medicine Progress Note - Hospitalist Service Date of Admission: 07/23/2021 Assessment & Plan 40 year old female??with past medical history significant for opioid use disorder,??alcohol use disorder,??HCV, hypothyroidism, depression, anxiety, and tobacco abuse??admitted to [facility] on 07/06/21 from [facility] for further care of R ankle osteomyelitis [...] of wound vac ?>Pain control: Currently controlled. -Continue??SOLID TIRE FINISHER??Suboxone ??8mg tid ??; scheduled APAP 975mg TID, [...] allergenic polyurethane foam dressings (Mepitac tape, Sorbiview, [id number]) over occlusive adhesive semipermeable gauze dressings; WOC [...] Transaminitis? # Alcohol use disorder.?? HCV quant 274538??at OSH. ??AST 117---56 , ALT 44--- 42 [...] with periods of confusion early in admission. ??[place] to be??toxic vs metabolic??2/ ?withdrawal, infection, sepsis. [...] . La Nena Babb MD Hospitalist Service [facility] Transitional Care Securely message with the [employer] Console (learn more here) Text page via [employer] Paging/Directory Clinically Significant Risk Factors Present on [...] (from the past 24 hour(s)). Van Corona, REFRIGERATING OILER - 07/27/2021 5:10 PM CDT 07/27/21 1500 General Information Onset of Illness/Injury or Date of Surgery 06/28/21 Referring Physician La Nena Babb MD Patient/Family Therapy Goal Statement (REFRIGERATING OILER) To go home Pertinent History of Current Problem Pt is 40 year old female with past medical history significant for opioid use disorder, alcohol use disorder, HCV, hypothyroidism, depression, anxiety, and tobacco abuse admitted to [facility] on 07/06/21 from [facility] for further care of R ankle osteomyelitis by Orthopedics, Plastics, and Infectious Disease. Pt diagnosed with acute encephalopathy, suspected due to infection/sepsis. Patient was transferred to TCU 07/23 for ongoing cares Iv antibiotics, wound cares. General Observations Pt referred to REFRIGERATING OILER for cognitive-linguistic evaluation by interdisciplinary team; TCU [...] memory strategy training;Progressive attention training Clinical Impression REFRIGERATING OILER Diagnosis Mild cognitive impairment Risks & Benefits [...] schedules at prior level of function. Skilled REFRIGERATING OILER services indicated to train in compensatory memory strategies and instruct in executive function tasksto increase independence in iADLs. Therapy Certification Start of Care Date 07/27/21 Certification date from 07/27/21 Certification date to 08/26/21 Total Evaluation Time Total Evaluation Time (Minutes) 33 (cognitive-linguistic evaluation.) REFRIGERATING OILER Goals Therapy Frequency (REFRIGERATING OILER Eval) 4 times/wk REFRIGERATING OILER Predicted Duration/Target Date for Goal Attainment 08/18/21 REFRIGERATING OILER Goals REFRIGERATING OILER Goal 1;REFRIGERATING OILER Goal 2 REFRIGERATING OILER: Goal 1 Patient will recall information moderate to high level complexity with 80% accuracy and minimal cues from REFRIGERATING OILER. REFRIGERATING OILER: Goal 2 Patient will complete high level executive function tasks with 90% accuracy and minimal cueing from REFRIGERATING OILER. SUMMARY OF TEST: The CLQT assesses visual [...] REPORT: TOTAL TIME: 33 Reference: Sailaja Messina, CCC-REFRIGERATING OILER, (2001) [employer] Associated attestation - Reyna Ulloa MD - 09/03/2021 10:07 AM CDT Reviewed the plan of care as written by the therapy team. I agree with the charted information in the Rehabilitation evaluation, flowsheet and plan of care Reyna Ulloa MD, A Electrifier Operator Transitional Care unit 09/03/21 Emily Macias RN - 07/27/2021 8:11 AM CDT Images from the original note were not included. [facility] Nurse Inpatient Assessment Today's Assessment: Right [...] control prior to re-starting VAC. Marilu Mar, MACHINE SCALLOP CUTTER with Ortho will order 4% topical [...] with vac drape prior to applying sponge vrt mechanic to assess integrity of dressing and ensure [...] Emily Macias RN BSN CWOCN Dept. Pager: [phone] Dept. Office Number: [phone] Breanna Newton - 07/25/2021 12:52 PM CDT [...] story home with three minor children in [place], [place]. Previous Functional Status: Pt stated she was IND with ADL's and IADL's. Pt did walk with a limp. DME available: Pt stated none. Patient and family understanding of hospitalization: Appropriate and pleasant. Cultural/Language/Spiritual Considerations: Pt is a 40 y.o. female, , Kazakh-speaking, and is Yazdanism. Abuse concerns: None reported. BIMS: Pt scored 13 on BIMS indicating cognition intact. PHQ-9: Pt scored 0 on PHQ-9 indicating no depressive symptoms. PAS: confirmation number- [id number] Has there been a level II screen? No Were there any recommendations in the screen? No If yes, will the recommendations we incorporated into the Plan of Care? N/A Physical Health Reason for admission: 40 year old female??with past medical history significant for opioid use disorder,??alcohol use disorder,??HCV, hypothyroidism, depression, anxiety, and tobacco abuse??admitted to [facility] on 07/06/21 from [facility] for further care of R ankle osteomyelitis by Orthopedics, Plastics, and Infectious Disease Patient Was transferred to TCU 07/23 for ongoing cares Iv antibiotics, wound cares ?? Provider Information Primary Care Physician: Yenifer Pickens [address] [address], [place], [address] [facility] Health: Juanis Mckenzie [address] [place] [address] Flight Software Test Engineer: None Mental Health: Diagnosis: Per H & P Depression and anxiety Current Support/Services: Medications, Therapist, Parenting instructions from the [facility], Sober support group, Online therapy. Previous Services:See above list. Services Needed/Recommended: Pt could not report anything more needed. Substance Use: Diagnosis: Per H &P Opioid use disorder and alcohol and tobacco use disorder. Current Support/Services: Medications,Therapist, Parenting instructions from the [facility], Sober support group, Online therapy. Previous Services: Pt has gone through treatment. Services Needed/Recommended: None at this time. Support System: Marital Status: . lives in [place]. Family support: Mom/ So Parker [phone] lives a mile away. Brother/ Colby Parker [phone] Three minor children 4,5,15 y.o. Other support available: Sober friends. Gaps in support system: Pt's dad just . Otherwise, none reported. Community Resources Current in home services: None reported. Previous services: None reported. 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 Income Source: [place], [place]. Education:[employer], 2 years of college in [employer] [facility] and [place] ([employer] Financial Concerns: Pt tried to [...] completed the 3543 with pt. TUSHAR Castaneda [facility], Transitional Care Unit Social Work [address] [place] [address] () [phone] La Nena Babb MD - 07/25/2021 12:22 PM CDT Chart check TSH came back normal La Nena Babb MD Omayra Edward RN - 07/25/2021 8:30 AM CDT Images from the original note were not included. [facility] WO Nurse Inpatient Assessment Today's [...] control prior to re-starting VAC. Marilu Mar MACHINE SCALLOP CUTTER with Ortho will order 4% topical [...] with vac drape prior to applying sponge vrt mechanic to assess integrity of dressing and ensure [...] Score: 19 Omayra Edward RN Dept. Pager: [phone] Dept. Office Number: [phone] Mariam Richter OT - 07/24/2021 12:58 PM [...] OT: pt reports living in house in [place] w/ 4steps to enter but abelto stay on main level , bathroom has tub shower combo and no bench/no grabbars. low toilet, kids bedrooms are upstairs , mom lives 1mile away and currently assisting w/ kids, SOLID TIRE FINISHER pt did most of the cook ing/cleaning/laundry, [...] and tobacco abuse admitted on 07/06/21 from [facility] for further care of R ankle osteomyelitis [...] plan of care Reyna Ulloa MD, A Electrifier Operator Transitional Care unit 08/02/21 Smita Stone, PT - 07/24/2021 12:11 PM CDT 07/24/21 0800 Quick Adds Quick Adds Certification Type of Visit Initial PT Evaluation Outboard Motor Tester Language Kazakh Living Environment People in Home child(kayden), dependent (14,8,4) Current Living Arrangements house Home Accessibility no concerns Transportation Anticipated family or friend will provide Living Environment Comments PT: Pt lives in [place], [place] with 4 ILANA after that needs are managed on one level. Pt has dependent children at home and SOLID TIRE FINISHER was IND with household cares but reports not driving for a long time due to ankle issues. Does not own or use SOLID TIRE FINISHER any AD. Pt does report that ~ [...] anxiety, and tobacco abuse admittedon 07/06/21 from [facility] for further care of R ankle osteomyelitis [...] fitting/training;patient/family education;postural re-education;prosthetic fitting/training;ROM (range of motion);stair training;strengthening;stretching;australian ball techniques;TENS;thermotherapy;transfer training;wheelchair management/propulsion training;progressive activity/exercise;risk factor [...] plan of care Reyna Ulloa MD, A Electrifier Operator Transitional Care unit 08/02/21 Dilma Adams - [...] Community Involvement Community Involvement Disabled Spiritual Practice [facility] Carnallite Plant Operator? No Outings Movies Hobbies/Interests Cards Other (see [...] Care Yes Treatment Plan Interested in Unit [employer]? No Type of Intervention Independent with activity [...] hypothyroidism, depression, anxiety, and tobacco abuse??admitted to [facility] on 07/06/21 from [facility] for further care of R ankle osteomyelitis [...] up/Monitoring RD to complete full assessment at [facility] unless otherwise consulted Leydi Meng MS, RD, LDN Unit Pager [phone] Weekend pager: [phone] documented in this encounter H&P Notes La Nena Babb MD - 07/24/2021 8:57 AM CDT [facility] Transitional Care History and Physical - Hospitalist Service Date of Admission: 07/23/2021 Assessment & Plan 40 year old female??with past medical history significant for opioid use disorder,??alcohol use disorder,??HCV, hypothyroidism, depression, anxiety, and tobacco abuse??admitted to [facility] on 07/06/21 from [facility] for further care of R ankle osteomyelitis [...] and ankle, wound vac exchange by Dr. Oilvera. ??EBL: 25 ml Per Ortho: ?? aspirin [...] epic for recommendations.. ?>Pain control: Currently controlled. -Continue??SOLID TIRE FINISHER??Suboxone ??8mg tid ??; scheduled APAP 975mg TID, [...] allergenic polyurethane foam dressings (Mepitac tape, Sorbiview, [id number]) over occlusive adhesive semipermeable gauze dressings; WOC [...] Transaminitis? # Alcohol use disorder.?? HCV quant 132205??at OSH. ??AST 117---56 , ALT 44--- 42 [...] with periods of confusion early in admission. ??[place] to be??toxic vs metabolic??2/2 ?withdrawal, infection, sepsis. ??Utox positive only for cannabinoids. ??Started on Lactulose at OSH. Currently alert, oriented, nonfocal.. ?? # Hypokalemia # Hypomagnesemia?? -Replaced ?? # Hypothyroidism ??- Continue Levothyroxine 125mcg QAM. -last TSH In [facility] was 2019, repeat TSH with next blood [...] Anticipated discharge location: home Follow-up Appointments Adult [facility] Follow-up and recommended labs and tests Follow up with Dr Camara or Morgan with Podiatry in 1-2 weeks. Clinic phone number is [phone] ?? Follow up with Plastic Surgery in 2 weeks. ?? Follow up with infectious disease 4-6 weeks. ?? Follow-up Labs: Weekly CBC w diff, BMP, CRP. Please have labs faxed to ID clinic. ?? The patient's care was discussed with the care team La Nena Babb MD Hospitalist [facility] Transitional Care Securely message with the [employer] Console (learn more here) Text page via [employer] Paging/Directory Chief Complaint Weakness, right ankle pain, IV antibiotics administration History of Present Illness 40 year old female??with past medical history significant for opioid use disorder,??alcohol use disorder,??HCV, hypothyroidism, depression, anxiety, and tobacco abuse??admitted to [facility] on 07/06/21 from [facility] for further care of R ankle osteomyelitis [...] So Luciano MD; Location: [facility] OR ??? GREENSMAN SURGERY ??? IRRIGATION AND DEBRIDEMENT FOOT, COMBINED [...] 4 MG/0.1ML nasal spray No No Sig: [place] 1 spray (4 mg) into one nostril [...] 12:40 PM CDTAssociated Order(s): DERMATOLOGY IP CONSULT [facility] Inpatient Teledermatology Store and Forward Consult Note [...] physician: Dr. Mckinley Vanessa MD Dermatology Resident [facility] I reviewed all available images and relevant [...] anxiety, and tobacco abuse, initially admitted to [facility] from [facility] on 07/06/21 for R ankle osteomyelitis & [...] Pt met all cognitive-linguistic goals with TCU REFRIGERATING OILER. Plan of Care - Brittnee Scott RN - 08/22/2021 2:14 PM CDT Care Coordination: Discharge Plan: Home care agency: [facility] Patient will receive correction through this agency at discharge. Incision Care: Patient will need to demonstrate dressing change prior to discharge. Please send home enough dressing supplies until next follow up with plastics in 1 week. Discharge date: Today or tomorrow pending if patient can get transport set up to clinic and then home. Brittnee Scott Patient Equipment Cleaner Acute Rehabilitation Unit/ Transitional Care Unit. Plan of Care - Maryam Rose RN - 08/22/2021 1:39 PM CDT Goal Outcome Evaluation: Alert and oriented x 4. Denies chest pain and SOB. Went for her ortho appointment and wound vac was removed. Discharge has been placed but d/t some reasons she will not be discharge today.Crown Buffer explained to her that she cannot go there as an outpatient not unless she was discharge to us and can make an appointment with the recovery clinic, pt insisted to go there. Brought by tag writer and a trainee andnurse explained to her the same information that the tag writer told her. Explained to pt that she couldnot have any doses of Subutex and will missed 1 dose for today and pt stated that she has stock fromhome.Crown Buffer explained the kind of medications, how she [...] accepting new clients for patients living area. [facility]: Left for return call [facility]: Was able to accept patient to care for correction. Faxed over clinicalsand discharge summary. Brittnee Scott Patient Equipment Cleaner Acute Rehabilitation Unit/ Transitional Care Unit. Plan [...] RPIV pulled following completion of ABT. When tag writer updated pt thatABT course was completed [...] Castellanos, REFUGIO - 08/21/2021 12:10 PM CDT [facility] Post-Acute Rehab PT: Recert Date: 08/22/2021 Discharge Plan: Home to [place], [place] in house with 4 ILANA with [...] n/v. Pt is MOD I to the [facility]. Continent for both B&B and uses BS. [...] patient Plan of Care - Brice Ni, REFRIGERATING OILER - 08/19/2021 8:53 AM CDT [facility] Post-Acute Rehab REFRIGERATING OILER: Discharge Plan: no ongoing REFRIGERATING OILER interventions Precautions: IV antibiotics Current Status: Communication: [...] Hoffman RN - 08/17/2021 9:34 AM CDT Crown Buffer had checked in on patient on 08/16, pt reported doing well and showing tag writer her new wound vac. Pt reported no current concerns that needed addressing. Crown Buffer circled back regarding interest inCOVID vaccine of which patient said that she would like to have the vaccine here on TCU. Crown Buffer infor med Provider to discuss with patient and order if appropriate. New orders in place for vaccine. 0900 08/17/2021: tag writer approached patient with COVID-19 Screening and Consent of which pt reported,after a lot of thinking, I don't want the vaccine. I have already had the vaccine once and I don't want another one. Crown Buffer discussed risks/benefits of vaccine; patient declined. Crown Buffer left information packet at bedside should patient be interested in the future. Plan of Care - Evelyn Ascencio RN - 08/17/2021 6:11 AM CDT Report received from evening nurse that pt constantly argued with the nurse regarding her completed PRN order of oxycodone. At the beginning of the outside physical damage appraiser, pt called tag writer and asked about her oxycodone prescription. Crown Buffer explained to her that the oxycodone order [...] two bottles from her bag and left. Crown Buffer asked her if any security was there when she gave the meds to the staff. She said no. Crown Buffer called pharmacy but pharmacy responded that they did not take any meds from the patient. Message sent to assistant banquet manager and DON. Pt alert and oriented. [...] 08/16/2021 7:54 PM CDT Goal Outcome Evaluation: [id number]: Pt was alert and oriented x 4. [...] when ever she could not get Oxycodone tag writer offered pudding, ice cream and bucket [...] greater than 99.5. Plan of Care - Nevni Holm RN - 08/15/2021 10:54 PM CDT [...] until August 22 f/u with surgeon. MICHAEL SCHAFFERAT. Orientation: A/O x4 Bowel: Continent using BSC; LB 08/15/21 Bladder: Continent Pain: R thigh and right foot Ambulation/Transfers: A1 walker Diet/ Liquids/ Pills: Regular, thin. Whole. Tubes/ Lines/ Drains: R forearm PIV Skin: Right foot and right thigh graft Plan of Care - Petrona Holland RN - 08/15/2021 12:19 PM CDT A&Ox4. Independent. Continent of both bowel and bladder- uses bedside commode. [facility] 08/15. Denies pain, SOB, chest pain, numbness [...] resulted. NPO to begin at 0500 08/15/21. Crown Buffer informed patient. Right foot dressing changed after shower. Orientation: A/O x4 Bowel: Continent using BSC; LBM 08/13/21 Bladder: Continent Pain: Tooth ache Ambulation/Transfers: A1 walker Diet/ Liquids/ Pills: Regular, thin. Whole. Tubes/ Lines/ Drains: R forearm PIV Skin: Right foot Plan of Care - Marlena Castellanos PTA - 08/14/2021 4:03 PM CDT [facility] Post-Acute Rehab PT: Recert Date: 08/22/2021 Discharge Plan: Home to [place], [place] in house with 4 ILANA with [...] will have a flap surgery tomorrow at [place], loader operator supervisor at 1215. Patient needs a shower [...] Cross, PT - 08/13/2021 10:59 AM CDT [facility] Post-Acute Rehab PT: Recert Date: 08/22/2021 Discharge Plan: Home to [place], [place] in house with 4 ILANA with [...] Corona SLP - 08/12/2021 4:38 PM CDT [facility] Post-Acute Rehab REFRIGERATING OILER: Discharge Plan: no ongoing REFRIGERATING OILER interventions Precautions: IV antibiotics Current Status: Communication: [...] pt recalled 5/5 with no cues from REFRIGERATING OILER.Educated in use of mental imagery strategy in [...] Castellanos PTA - 08/12/2021 12:27 PM CDT [facility] Post-Acute Rehab PT: Recert Date: 08/22/2021 Discharge Plan: Home to [place], [place] in house with 4 ILANA with [...] Corona SLP - 08/10/2021 5:05 PM CDT [facility] Post-Acute Rehab REFRIGERATING OILER: Discharge Plan: no ongoing REFRIGERATING OILER interventions Precautions: IV antibiotics Current Status: Communication: [...] Castellanos PTA - 08/10/2021 3:54 PM CDT [facility] Post-Acute Rehab PT: Recert Date: 08/22/2021 Discharge Plan: Home to [place], [place] in house with 4 ILANA with [...] 99.5. Plan of Care - Gucci Ko REFRIGERATING OILER - 08/09/2021 9:56 AM CDT [facility] Post-Acute Rehab REFRIGERATING OILER: Discharge Plan: no ongoing REFRIGERATING OILER interventions Precautions: IV antibiotics Current Status: Communication: [...] Jensen PTA - 08/09/2021 9:15 AM CDT [facility] Post-Acute Rehab PT: Recert Date: 08/22/2021 Discharge Plan: Home to [place], [place] in house with 4 ILANA with [...] Jensen PTA - 08/08/2021 4:34 PM CDT [facility] Post-Acute Rehab PT: Recert Date: 08/22/2021 Discharge Plan: Home to [place], [place] in house with 4 ILANA with [...] training. Plan of Care - Gucci Ko REFRIGERATING OILER - 08/08/2021 4:04 PM CDT [facility] Post-Acute Rehab REFRIGERATING OILER: Discharge Plan: Likely ongoing REFRIGERATING OILER Precautions: IV antibiotics Current Status: Communication: WNL [...] sleep. Indep.in room w/knee scooter and to [facility]. Continues IV abx via SL valved picc [...] Jensen PTA - 08/07/2021 4:04 PM CDT Pres[facility] Post-Acute Rehab PT: Recert Date: 08/22/2021 Discharge Plan: Home to [place] in house with 4 ILANA with [...] Cross, PT - 08/06/2021 1:16 PM CDT Pres[facility] Post-Acute Rehab PT: Recert Date: 08/22/2021 Discharge Plan: Home to [place] in house with 4 ILANA with [...] greater than 99.5. Plan of Care - Christpoher More, PT - 08/05/2021 5:46 PM CDT Pres[facility] Post-Acute Rehab PT: Recert Date: 08/22/2021 Discharge Plan: Home to [place] in house with 4 ILANA with [...] Ko SLP - 08/04/2021 12:27 PM CDT [facility] Post-Acute Rehab REFRIGERATING OILER: Discharge Plan: Likely ongoing REFRIGERATING OILER Precautions: IV antibiotics Current Status: Communication: WNL [...] Medina, VARINDER - 08/03/2021 2:23 PM CDT [facility] Post-Acute Rehab REFRIGERATING OILER: Discharge Plan: Likely ongoing REFRIGERATING OILER Precautions: IV antibiotics Current Status: Communication: WNL [...] Vicente, PT - 08/03/2021 11:27 AM CDT [facility] Post-Acute Rehab PT: Recert Date: 08/22/2021 Discharge Plan: Home to [place], [place] in house with 4 ILANA with [...] with pt to discuss COVID vaccine status. Crown Buffer offered and provided education re COVID vaccine [...] POC. Plan of Care - Gucci Ko REFRIGERATING OILER - 08/01/2021 4:52 PM CDT [facility] Post-Acute Rehab REFRIGERATING OILER: Discharge Plan: Likely ongoing REFRIGERATING OILER Precautions: IV antibiotics Current Status: Communication: WNL expressive and receptive language Cognition: Mild cognitive impairment- memory, attention, executive function/visuospatial deficits. Swallow:Regular/thin; not formally assessed on TCU Assessment: REFRIGERATING OILER: Patient engaged in deductive reasoning task. Focus this date on strategies to recognize and correct errors. Patient this date was able to recognize errors but unable to repair without significant assistance. Discussed plan with patient to extend REFRIGERATING OILER interventions into early next week pending progress and discharge plan. Other Barriers to Discharge (Family Training, etc): none noted at this time. Plan of Care - Marycarmen Cross, PT - 08/01/2021 4:16 PM CDT [facility] Post-Acute Rehab PT: Recert Date: 08/22/2021 Discharge Plan: Home to [place], [place] in house with 4 ILANA with [...] goal(s). See goals on Care Plan in [facility] electronic health record for goal [...] PM CDT Care Coordination: Patient's mother called tag writer to communicate concerns she had about patient leaving the facility tomorrow for a pass to go home to sign a lease. She stated that patient has alcoholism and she is concerned she is leaving to drink. She states that patient has participated in inpatient treatment multiple times and has relapsed after every treatment. She states that patient has a social service technician assigned to her in the community and did have a counselor. She states that patient was actively drinking priorto hospitalization. Patient's mother has been taking care of her children. Her mother states she haslost her own job trying to take care of the children and would like patient to have a sobriety plan for when she discharges home. Crown Buffer did alert MD on TCU, social work, and DON. Leydi Alarcon RN, BSN, CRRN Patient Equipment Cleaner Acute Rehabilitation Unit/Transitional Care Unit : [phone] Pager: [phone] Care Plan - So Rojas RN - [...] Joel OTA - 08/01/2021 10:22 AM CDT Pres[facility] Post-Acute Rehab OT: Discharge Plan: home w/ [...] modified indep it items accessible. IADLs: indep SOLID TIRE FINISHER per pt, demo simple kitchen mobility and [...] Demonstrates good safety with use of knee leak patcher with ambulation. Other Barriers to Discharge (DME, [...] - 07/31/2021 3:36 PM CDT Care Coordination Crown Buffer met with patient to assess level of support patient would have at home. Patient stated her mom was her primary support. Mother is currently watching patients children. Patient stated she would have to talk to her mother to see if she was willing to learn the dressing changes, and IV antibiotics. Crown Buffer asked for permission to discuss update with patients mother, patient granted tag writer this permission. Crown Buffer called mother. Mother discussed that she was already feeling overwhelmed with the responsibility of watching the kids. Mother was not willing to commit to learning the dressing change or IV antibiotics at this time. Crown Buffer will bring this information back to IDT to reassess plan of care. Brittnee Scott RN Plan of Care - Gucci Ko SLP - 07/31/2021 12:56 PM CDT [facility] Post-Acute Rehab REFRIGERATING OILER: Discharge Plan: Likely ongoing REFRIGERATING OILER Precautions: IV antibiotics Current Status: Communication: WNL [...] Richter OT - 07/31/2021 12:51 PM CDT Pres[facility] Post-Acute Rehab OT: Discharge Plan: home w/ [...] modified indep it items accessible. IADLs: indep SOLID TIRE FINISHER per pt, demo simple kitchen mobility and [...] was effective. Wound vac taken off by [facility] nurse and mepilex dressing on. PICC line [...] side commode indep. Has the scooter at [facility] Skin: Red bumps on left upper arm and right lower leg Pain: Yes c/o of aching all over CMS: intact Dressing: PICC dressing, and right ankle dressing, wound vac removed today by [facility] Diet: regualr LDA: Picc left AC Equipment: [...] patient Plan of Care - Gucci Ko, REFRIGERATING OILER - 07/30/2021 12:49 PM CDT [facility] Post-Acute Rehab REFRIGERATING OILER: Discharge Plan: Likely ongoing REFRIGERATING OILER Precautions: IV antibiotics Current Status: Communication: WNL [...] Aguilera OTA - 07/30/2021 12:41 PM CDT [facility] Post-Acute Rehab OT: Discharge Plan: home w/ [...] (pericares per nsg w/ setup) IADLs: indep SOLID TIRE FINISHER per pt, Vision/Cognition: glasses, demo impaired memory,reasoning [...] Cross PT - 07/29/2021 4:35 PM CDT [facility] Post-Acute Rehab PT: Discharge Plan: Home to [place], [place] in house with 4 ILANA with [...] 97 % Patient does not have new [id number] symptoms. Patient does not have new sore [...] fever greater than 99.5. Care Plan - oS Rojas RN - 07/28/2021 3:39 PM CDT [...] Aguilera OTA - 07/28/2021 12:52 PM CDT [facility] Post-Acute Rehab OT: Discharge Plan: home w/ [...] (pericares per nsg w/ setup) IADLs: indep SOLID TIRE FINISHER per pt, Vision/Cognition: glasses, demo impaired memory,reasoning [...] Corona SLP - 07/27/2021 5:18 PM CDT [facility] Post-Acute Rehab REFRIGERATING OILER: Discharge Plan: Home, TBD if ongoing REFRIGERATING OILER Precautions: IV antibiotics Current Status: Communication: WNL [...] schedules at prior level of function. Skilled REFRIGERATING OILER services indicatedto train in compensatory memory strategies [...] - 07/27/2021 12:15 PM CDT Care Coordination: Crown Buffer met with patient. Crown Buffer introduced role of care coordination. Patient stated they would havemother for support. Patient stated mother would be open to learning abx infusion training, and woundcare training. Crown Buffer will place PLC training, and follow up with wound care education pending woundcare plan for discharge. Encouraged patient to reach out with any questions regarding POC. Left nameand number on patients white board. Brittnee Scott RN Plan of Care - Marycarmen Cross PT - 07/27/2021 10:17 AM CDT [facility] PT: Discharge Plan: Home to [place], [place] in house with 4 ILANA with [...] Vicente, PT - 07/26/2021 10:36 AM CDT [facility] PT: Discharge Plan: Home to [place], [place] in house with 4 ILANA with [...] Gibbs, OT - 07/26/2021 7:58 AM CDT [facility] OT: Discharge Plan: home w/ [...] (pericares per nsg w/ setup) IADLs: indep SOLID TIRE FINISHER per pt, Vision/Cognition: glasses, demo impaired memory,reasoning [...] prn pain meds for right ankle pain. [facility] nurse changed vac dressing today without problems [...] Castellanos PTA - 07/25/2021 4:06 PM CDT [facility] PT: Discharge Plan: Home to [place], [place] in house with 4 ILANA with [...] Richter OT - 07/25/2021 12:22 PM CDT [facility] OT: Discharge Plan: home w/ [...] (pericares per nsg w/ setup) IADLs: indep SOLID TIRE FINISHER per pt, Vision/Cognition: glasses, demo impaired memory,reasoning [...] Richter OT - 07/24/2021 12:59 PM CDT [facility] OT: Discharge Plan: home w/ mom to support PRN, Recert: 08/22 Precautions: NWB RLE, falls, mild cog deficits , IV antibiotics, wound vac Current Status: ADLs: Mobility: sba Grooming: sba Dressing: sba ub and LB drg Bathing: NT Toileting: NT IADLs: indep SOLID TIRE FINISHER per pt, Vision/Cognition: glasses, demo impaired memory,reasoning [...] chair Pharmacy-Medication Regimen Review - Suze Morales [facility] - 07/24/2021 12:21 PM CDT Pharmacy Medication [...] are listed with recommendations. Suze Morales, SidneyD, [facility] Current Facility-Administered Medications: ??? [START [...] nicotine Patch in Place, , Transdermal, Q8H [facility], La Nena Babb MD ??? Nurse may [...] PharmD, BCPS Plan of Care - Smita Stone PT - 07/24/2021 12:12 PM CDT [facility] PT: Discharge Plan: Home to [place], [place] in house with 4 ILANA with [...] IV abx q8hrs. Pt.states picc placed @ [facility]. Prefers to keep dinner tray on [...] on regular diet. Requested to see social service technician about setting up Advance Directive, sticky note [...] Visit Wound Care Luis Camara DPM [address] [place] [address] (Wo rk) 01/21/2022 Office Visit Gastroenterology Juanis Mckenzie [address] [place] [address] Luis Fernando Miles MD [address] [address] Scheduled Referrals Name Type Priority [...] (ABNORMAL) Manual Differential (08/20/2021 7:36 AM CDT) [facility] Method Time Signature % Neutrophils 45 [...] City/State/ZIP Code [place] [address] Care Lab [address] [facility], Room M309 (ABNORMAL) CBC with platelets and differential (08/20/2021 7:36 AM CDT) [facility] gist Method Time Signature WBC Count 4.8 [...] City/State/ZIP Code [place] [address] Care Lab [address] [facility], Room M309 (ABNORMAL) CRP inflammation (08/20/2021 7:36 AM CDT) [facility] Method Time Signature CRP Inflammation 8.9 [...] City/State/ZIP Code [place] [address] Care Lab [facility], Room M309 (ABNORMAL) Basic metabolic panel (08/20/2021 7:36 AM CDT) [facility] Method Time Signature Sodium 142 133 [...] and gender (Paul et al., NEJM, DOI: 10.1056/[id number]) Specimen Anatomical Collection Method / Collection Time Recei isak Time (Source) Location / Volume Laterality Blood STRUCTURE OF LEFT Venipuncture / 08/20/2021 7:36 08/20 7:40 UPPER LIMB / Unknown AM CDT AM CDT Unknown La Nena Babb MD LAB - BLOOD ORDERABLES Performing Organization Address City/State/ZIP Code [place] [address] [place] [address], Room M309 Extra Green Top ([place] Heparin) Tube (08/17/2021 5:07 AM CDT) P [...] BLOOD ORDERABLE S Performing Organization Address City/State/ZIP [facility] Phon [place] [address] [place] [address], Room M309 (ABNORMAL) CBC with platelets (08/17/2021 [...] City/State/ZIP Code [place] [address] [address] [place] [address], Room M309 Extra Purple Top Tube (08/16/2021 [...] City/State/ZIP Code [place] [address] [place] [address], Room M309 (ABNORMAL) Hepatic panel (08/16/2021 1:05 [...] City/State/ZIP Code [place] [address] Care Lab [address] [facility], Room M309 (ABNORMAL) Basic metabolic panel (08/16/2021 1:05 PM CDT) [facility] gist Method Time Signature Sodium 138 133 [...] and gender (Paul et al., NEJM, DOI: 10.1056/[id number]) Specimen Anatomical Collection Method / Collection Time Recei isak Time (Source) Location / Volume Laterality Blood STRUCTURE OF LEFT Venipuncture / 08/16/2021 1:05 08/16 1:16 UPPER LIMB / Unknown PM CDT PM CDT Unknown La Nena Babb MD LAB - BLOOD ORDERABLES Performing Organization Address City/State/ZIP Code [place] [address] Care Lab [address] [facility], Room M309 Asymptomatic COVID-19 Virus (Coronavirus) by [...] exposure or clinical presentation sugges ts COVID-19. ??[facility] [employer] are certified under the Clinical Laborat ory Improvement Amendments of 1988 (CLIA-88) as qualified to perform moderate and/or high complexity laboratory testing. Christiano Santacruz MD LAB - MICRO GENERAL ORDERABL ES Performing Organization Address City/State/ZIP Code [place] [address] Care Lab [address] [facility], Room M309 (ABNORMAL) CBC with platelets and differential (08/13/2021 6:05 AM CDT) [facility] gist Method Time Signature WBC Count 5.1 [...] City/State/ZIP Code [place] [phone] Care Lab [address] [facility], Room M309 CRP inflammation (08/13/2021 6:05 AM [...] City/State/ZIP Code Phon e Number UR LABORATORY [facility] [place] [phone] Care Lab [address] [facility], Room M309 (ABNORMAL) Basic metabolic panel (08/13/2021 6:05 AM CDT) [facility] gist Method Time Signature Sodium 141 133 [...] and gender (Paul et al., NEJM, DOI: 10.1056/[id number]) Specimen Anatomical Collection Method / Collection Time Recei isak Time (Source) Location / Volume Laterality Blood STRUCTURE OF LEFT Venipuncture / 08/13/2021 6:05 08/13 6:34 UPPER LIMB / Unknown AM CDT AM CDT Unknown La Nena Babb MD LAB - BLOOD ORDERABLES Performing Organization Address City/State/ZIP Code Phon e Number UR LABORATORY [facility] [place] [address] Care Lab [address] [facility], Room M309 Asymptomatic COVID-19 Virus (Coronavirus) by PCR Nasopharyngeal (08/10/2021 2:52 PM CDT) [facility] Method Time Signature SARS CoV2 PCR [...] This charito t was validated by the [facility] Infectious Diseases Diag nostic Laboratory. This laboratory is certified under the Clinic al Laboratory Improvement Amendments of 1988 (CLIA-88) as qualifie d to perform high and/or moderate complexity laboratory testing. Kayden Mendes MD LAB - MICRO GENERAL ORDERABL ES Performing Organization Address City/State/ZIP Code Phon e Number [facility] IDD LABORATORY [facility] [place] [address] Diag. Lab 500 [facility], Room D297 Extra Purple Top Tube [...] City/State/ZIP Code Phon e Number UR LABORATORY [facility] [place] [address] Care Lab [address] [facility], Room M309 (ABNORMAL) Basic metabolic panel (08/09/2021 [...] and gender (Paul et al., NE, DOI: 10.1056/[id number]) Specimen Anatomical Collection Method / Collection Time Recei isak Time (Source) Location / Volume Laterality Blood STRUCTURE OF LEFT Venipuncture / 08/09/2021 5:45 08/09 6:15 UPPER LIMB / Unknown AM CDT AM CDT Unknown La Nena Babb MD LAB - BLOOD ORDERABLES Performing Organization Address City/State/[facility] Ph[place] [phone] [place], [place] [id number] CRP inflammation (08/06/2021 6:00 AM CDT) Analysis [...] - BLOOD ORDERABLES Performing Organization Address City/State/ZIP [facility] Phon [place] [address] [place] [address], Room M309 (ABNORMAL) Basic metabolic panel (08/06/2021 [...] and gender (Paul et al., NEJM, DOI: 10.1056/[id number]) Specimen Anatomical Collection Method Collection Time Receive d Time (Source) Location / / Volume Laterality Blood STRUCTURE OF LEFT VAD(CVC, PICC) / 08/06/2021 6:00 AM 08/06/2021 6:36 UPPER LIMB / Unknown CDT AM CDT Unknown La Nena Babb MD LAB - BLOOD ORDERABLES Performing Organization Address City/State/ZIP Code [place] [address] Care Lab [address] [facility], Room M309 (ABNORMAL) CBC with platelets and differential (08/06/2021 5:58 AM CDT) [facility] gist Method Time Signature WBC Count 5.0 [...] City/State/ZIP Code Phon e Number UR LABORATORY [facility] [place] [address] Care Lab [address] [facility], Room M309 (ABNORMAL) Basic metabolic panel (08/02/2021 6:13 AM CDT) [facility] gist Method Time Signature Sodium 142 133 [...] and gender (Paul et al., NEJM, DOI: 10.1056/[id number]) Specimen Anatomical Collection Method Collection Time Receive d Time (Source) Location / / Volume Laterality Blood STRUCTURE OF LEFT VAD(CVC, PICC) / 08/02/2021 6:13 AM 08/02/2021 6:24 UPPER LIMB / Unknown CDT AM CDT Unknown La Nena Babb MD LAB - BLOOD ORDERABLES Performing Organization Address City/State/ZIP Code Phon e Number UR LABORATORY [facility] [place] [address] Care Lab [address] [facility], Room M309 (ABNORMAL) CBC with platelets and differential (07/30/2021 5:53 AM CDT) [facility] gist Method Time Signature WBC Count 6.8 [...] City/State/ZIP Code [place] [address] Care Lab [address] [facility], Room M309 (ABNORMAL) CRP inflammation (07/30/2021 5:53 AM CDT) [facility] gist Method Time Signature CRP Inflammation 9.1 [...] City/State/ZIP Code [place] [address] Care Lab [address] [facility], Room M309 (ABNORMAL) Basic metabolic panel (07/30/2021 [...] and gender (Paul et al., NEJM, DOI: 10.1056/[id number]) Specimen Anatomical Collection Method / Collection Time Recei isak Time (Source) Location / Volume Laterality Blood STRUCTURE OF RIGHT Venipuncture / 07/30/2021 5:53 /04/2021 7:01 UPPER LIMB / Unknown AM CDT AM CDT Unknown La Nena Babb MD LAB - BLOOD ORDERABLES Performing Organization Address City/State/ZIP Code [place] [address] Care Lab [facility], Room M309 (ABNORMAL) Basic metabolic panel (07/26/2021 [...] and gender (Paul et al., NEJ, DOI: 10.1056/[id number]) Specimen Anatomical Collection Method Collection Time Receive d Time (Source) Location / / Volume Laterality Blood CATHETER / Unknown VAD(CVC, PICC) / 07/26/2021 8:05 AM 07/26/2021 8:14 Unknown CDT AM CDT La Nena Babb MD LAB - BLOOD ORDERABLES Performing Organization Address City/State/ZIP Code Phon e Number UR LABORATORY [facility] [place] [address] Care Lab [address] [facility], Room M309 Extra Purple Top Tube (07/26/2021 [...] City/State/ZIP Code [place] [address] Care Lab [address] [place] [address], Room M309 Extra Purple Top Tube (07/25/2021 5:51 AM CDT) P athologist Signature Hold Specimen [facility] 07/25/2021 UR LABORATORY 7:48 AM CDT Specimen Anatomical Collection Method Collection Time Receive d Time (Source) Location / / Volume Laterality Blood VENOUS LINE / VAD(CVC, PICC) / 07/25/2021 5:51 AM 06/0 09/2021 6:44 Unknown Unknown CDT AM CDT La Nena Babb MD LAB - BLOOD ORDERABLES Performing Organization Address City/State/ZIP Code [place] [address] [place] [address], Room M309 TSH with free T4 reflex [...] City/State/ZIP Code [place] [address] [place] [address], Room M309 documented in this encounter Visit [...] 1 patch, Transdermal, EVERY 24 HOURS, Ad bookkeeper assistant over 24 Hours, First dose on Fri07/24/21 [...] on 08/18/21 at 1055, Shake well. fexofenadine (ELOSIE) tablet 180 mg 180 mg, Oral, DAILY [...] documented as of this encounter Care Teams Investment Underwriter Relationship Specialty Start Date End Date Juanis Mckenzie PCP - General Addiction Medicine 06/29/21 [address] [place] [address] Stephani Pina, Assigned PCP 02/25/21 TURN DOWN ATTENDANT NATIONAL ACCOUNTS RECRUITER [address] [place] [address] Elsa Yeh, Registered Nurse Infectious Diseases 07/25/21 RN Rogelio Treadwell Musculoskeletal 08/04/21 MD August Provider [address] [place] [address] Luis Camara MD Podiatry 08/16/21 CALVIN Burnett [address] [place] [address] documented as of this encounter
--- OUTSIDE RECORDS SUMMARY | 2021-12-05 19:19 | XMS_ITS | Encounter Summary ---
:1980 Author Organization [place] Address [address] [facility] [place] [address] Care Team Providers Name Role Phone Stephani Pina CORN CUTTER OPERATOR INFANT AND TODDLER TEACHER Unavailable [phone] Juanis Levi Primary Care Provider Elsa Yeh RN Unavailable Unavailable Rogelio Treadwell MD Unavailable [phone] Lius Camara DPM Unavailable [phone] Camryn Christina MD Unavailable Sintia Lange PA-C Unavailable Luis Fernando Miles MD Unavailable [phone] Encounter Details Date Type Department Care Team Description 08/15/2021 Hospital Encounter [facility] Liz swan, Transitional Care Unit MD [place] [address] [facility] [address] [place] [address] [id number] (Wo rk) Social History Tobacco Use Types Packs/Day Years Used Date Smoking Tobacco: Every Day Cigarettes 0.3 10 Smokeless Tobacco: Never Comments: 5-8 cigarettes a day (hasn't s moked since in transitional care 07/23/21) Alcohol Use Standard Drinks/Week Comments Not Currently 0 (1 standard drink = 0.6 oz pure alcoho l) sober since 05/08 Sex Assigned at Date Recorded Female 01/14/2020 10:57 AM STOVE POLISHER COVID-19 Exposure Response Date Recorded In the last 10 days, have you been in Unable to assess 12:39 PM CDT contact with someone who was confirmed or suspected to have Coronavirus/COVID-19? documented as of this encounter Plan of Treatment Upcoming Encounters Date Type Specialty Care Team Description 12/20/2021 Office Visit Wound Care Luis Camara DPM [address] [place] [address] (Wo rk) 01/21/2022 Office Visit Gastroenterology Juanis Levi [address] [place] [address] Luis Fernando Miles MD 6 [facility] [address] [place], [place] [id number] documented as of this encounter Visit Diagnoses Not on filedocumented in this encounter Additional Health Concerns Infection Onset Date Last Indicated Resolved Time MRSAComment: Added from external infection. 11/07/201406/18 Assessment Noted Time PHQ-9 Depression Total Score: 2 12/15/2020 1:07 PM CDT documented as of this encounter Care Teams Drum Maker Relationship Specialty Start Date End Date Juanis Levi PCP - General Addiction Medicine 06/29/21 [address] [place] [address] Stephani Pina, Assigned PCP 02/25/21 CORN CUTTER OPERATOR INFANT AND TODDLER TEACHER [address] [place] [address] Elsa Yeh, Registered Nurse Infectious Diseases 07/25/21 Rogelio Wilson Assigned Musculoskeletal 08/04/21 MD August Provider [address] [place], [place] [address] Luis Camara MD Podiatry 08/16/21 CALVIN Burnett [address] [place], [place] [address] Camryn Christina Assigned Surgical 09/01/21 09/07/21 MD Lexie Provider 420 [facility] [address] [place], [place] [phone] Sintia Lange, Assigned Surgical 09/08/21 PA-C Provider 9[address] [facility] 4[address] [place] [address] Landon [place] MD Gastroenterology 11/21/21 MD Luis Fernando 516 [facility] [address] [place] [address] documented as of this encounter
--- OUTSIDE RECORDS SUMMARY | 2021-12-05 19:19 | XMS_ITS | Encounter Summary ---
:1980 Author Organization [place] Address [address] [place] [address] Care Team Providers Name Role Phone Stephani Pina KILN HAND POT LINING SUPERVISOR Unavailable Juanis Levi Primary Care Provider Elsa Yeh RN Unavailable Unavailable Reason for Referral Diagnostic Imaging XR (Routine) - Pending Review Specialty Diagnoses / Procedures Referred By Contact Refer red To Contact Diagnoses Ankle pain Rogelio Treadwell MD Procedures XR Ankle Right G/E 3 Views 9 [place], [place] [address] Referral ID Status Reason Start Date Expiration Date Visits V isits Requested Authorized [id number] Pending 07/31/2021 07/31/2022 1 1 Review Encounter Details Date Type Department Care Team Description 07/31/2021 Orders Only [facility] Rogelio Treadwell pa in (Primary Orthopedic Clinic MD August Dx) [address] [place], [place] 4th Floor [address] [place], [place] [phone] (Wo rk) [address] [phone] Social History Tobacco Use Types Packs/Day Years Used Date Smoking Tobacco: Every Day Cigarettes 0.3 10 Smokeless Tobacco: Never Comments: 5-8 cigarettes a day Alcohol Use Standard Drinks/Week Comments Not Currently 0 (1 standard drink = 0.6 oz pure alcoho l) sober since 08/2020 Sex Assigned at Date Recorded Female 01/14/2020 10:57 AM SHOP COOPER documented as of this encounter Plan of Treatment Upcoming Encounters Date Type Specialty Care Team Description 12/20/2021 Office Visit Wound Care Luis Camara DPM [address] [facility] [place] [address] (Wo rk) 01/21/2022 Office Visit Gastroenterology Juanis Levi [address] [place] [address] Luis Fernando Miles MD [address] [facility] [address] [place] [address] documented as of this encounter [...] documented as of this encounter Care Teams Bicycle Racer Relationship Specialty Start Date End Date Juanis Levi PCP - General Addiction Medicine 06/29/21 [address] [place] [address] Stephani Pina APRN POT LINING SUPERVISOR Assigned PCP 02/25/[address] [place] [address] Elsa Yeh, RN Registered Nurse Infectious Diseases 07/25/21 documented as of this encounter
--- OUTSIDE RECORDS SUMMARY | 2021-12-05 19:19 | XMS_ITS | Encounter Summary ---
:1980 Author Organization [facility] Address [address] [place] [address] Care Team Providers Name Role Phone Stephani Pina FARZANA CLINICAL SERVICES ASSISTANT Unavailable [phone] Juanis Levi Primary Care Provider Elsa Yeh RN Unavailable Unavailable Rogelio Treadwell MD Unavailable [phone] Encounter Details Date Type Department Care Team Description 08/10/2021 Telephone [employer] [facility] Camryn Christina, Reconstructive Surgery Clinic [place] [phone] [address] [place] [address] [phone] Social History Tobacco Use Types Packs/Day Years Used Date Smoking Tobacco: Every Day Cigarettes 0.3 10 Smokeless Tobacco: Never Comments: 5-8 cigarettes a day Alcohol Use Standard Drinks/Week Comments Not Currently 0 (1 standard drink = 0.6 oz pure alcoho l) sober since 08/2020 Sex Assigned at Date Recorded Female 01/14/2020 10:57 AM NEWS CAMERA PERSON COVID-19 Exposure Response Date Recorded In [...] Regarding: RE: Pre-Op and Current Admission at [facility] I did call them about pre-op and COVID. Could you please call and give them any info they need aboutlogistics of when and where to be? It is [phone] Lesly ----- Message ----- From: Yessenia Marquez Sent: 08/09/2021 5:02 PM CDT To: Lesly Pina RN Subject: RE: Pre-Op and Current Admission at [facility] This is the TCU that you called! Do I need to call? Yessenia ----- Message ----- From: Lesly Pina RN Sent: 08/09/2021 4:13 PM CDT To: Camryn Christina MD, Gucci Moses, # Subject: RE: Pre-Op and Current Admission at [facility] I spoke with the staff at the [...] Subject: RE: Pre-Op and Current Admission at [facility] Adding our Lesly MONROYAlma Casas ----- Message ----- From: Gucci Moses Sent: 08/09/2021 11:23 AM CDT To: Camryn Christina MD, Yessenia Marquez Subject: Pre-Op and Current Admission at [facility] Dr. Christina, I am doing chart review for next week and noticed this patient is currently admitted at the [facility] transitional care unit (which I assume is a floor within the hospital) since 07/23/21. I asked the nursing staff here at the [facility] how to coordinate her care and they [...] Visit Wound Care Luis Camara DPM [address] [place], [place] [phone] (Wo rk) 01/21/2022 Office Visit Gastroenterology Juanis Levi [address] [place] [address] Luis Fernando Miles MD [address] [address] documented as of this encounter Visit Diagnoses Not on filedocumented in this encounter Additional Health Concerns Infection Onset Date Last Indicated Resolved Time MRSAComment: Added from external infection. 11/07/201406/18 Assessment Noted Time PHQ-9 Depression Total Score: 2 12/15/2020 1:07 PM CDT documented as of this encounter Care Teams Registered Nurse Step Down Relationship Specialty Start Date End Date Juanis Levi PCP - General Addiction Medicine 06/29/[address] [place] [address] Stephani Pina, Assigned PCP 02/25/21 VOCATIONAL REHABILITATION SPECIALIST CLINICAL SERVICES ASSISTANT [address] [place] [address] Esla Yeh, Registered Nurse Infectious Diseases 07/25/21 RN Rogelio Treadwell Assigned Musculoskeletal 08/04/21 MD August Provider [address] [place] [address] documented as of this encounter
--- OUTSIDE RECORDS SUMMARY | 2021-12-05 19:19 | XMS_ITS | Encounter Summary ---
:1980 Author Organization [place] Address [address] [place] [address] Care Team Providers Name Role Phone Stephani Pina FARZANA PIPELINE CONTROLLER Unavailable [phone] Juanis Levi Primary Care Provider Elsa Yeh RN Unavailable Unavailable Reason for Visit Diagnostic Imaging XR (Routine) - Pending Review Specialty Diagnoses / Procedures Referred By Contact Refer red To Contact Diagnoses Ankle pain Rogelio Treadwell MD Procedures XR Ankle Right G/E [address] [place] [address] 2845 5 Referral ID Status Reason Start Date Expiration Date Visits V isits Requested Authorized [id number] Pending 07/31/2021 07/31/2022 1 1 Review Encounter Details Date Type Department Care Team Description 07/31/2021 Ancillary Procedure [facility] Rogelio Treadwell nkle pain Orthopedic Xray MD August [address] 909 [place], [place] 4th Floor [address] [place], [place] [phone] (Wo rk) [address] [phone] Social History Tobacco Use Types Packs/Day Years Used Date Smoking Tobacco: Every Day Cigarettes 0.3 10 Smokeless Tobacco: Never Comments: 5-8 cigarettes a day Alcohol Use Standard Drinks/Week Comments Not Currently 0 (1 standard drink = 0.6 oz pure alcoho l) sober since 08/2020 Sex Assigned at Date Recorded Female 01/14/2020 10:57 AM CLEANER CARPET AND UPHOLSTERY COVID-19 Exposure Response Date Recorded In the last 10 days, have you been in contact with No / Unsu re 07/31/2021 1:25 PM CDT someone who was confirmed or suspected to have Coronavirus/COVID-19? documented as of this encounter Plan of Treatment Upcoming Encounters Date Type Specialty Care Team Description 12/20/2021 Office Visit Wound Care Luis Camara DPM 909 [place], [place] [phone] (Wo rk) 01/21/2022 Office Visit Gastroenterology Juanis Levi 2450 [place] [address] Luis Fernando Miles MD 516 [facility] [place], [place] [address] documented as of this encounter Procedures Procedure [...] documented as of this encounter Care Teams Pipe Layer Relationship Specialty Start Date End Date Juanis Levi PCP - General Addiction Medicine 06/29/21 [facility]0 [place] [phone] Stephani Pina APRN PIPELINE CONTROLLER Assigned PCP 02/25/[address] [place] [address] Elsa Yeh RN Registered Nurse Infectious Diseases 07/25/21 documented as of this encounter
--- OUTSIDE RECORDS SUMMARY | 2021-12-05 19:19 | XMS_ITS | Encounter Summary ---
:1980 Author Organization [place] Address [address] [place] [address] Care Team Providers Name Role Phone Stephani Pina APRN ROLL CLAMP OPERATOR Unavailable [phone] Juanis Levi Primary Care Provider Encounter Details Date Type Department Care Team Description 07/19/2021 Telephone [facility] Unkno wn [place] [address] [place] [address] 4th [place], [place] [phone] Social History Tobacco Use Types Packs/Day Years Used Date Smoking Tobacco: Every Day Cigarettes 0.3 10 Smokeless Tobacco: Never Comments: 5-8 cigarettes a day Alcohol Use Standard Drinks/Week Comments Not Currently 0 (1 standard drink = 0.6 oz pure alcoho l) sober since 08/2020 Sex Assigned at Date Recorded Female 01/14/2020 10:57 AM SCCM ADMINISTRATOR documented as of this encounter Miscellaneous Notes Telephone Encounter - Rossana Carroll - 07/19/2021 12:53 PM CDT 07/19-Patient is currently inpatient, will call tomorrow to get her scheduled.-LN documented in this encounter Plan of Treatment Upcoming Encounters Date Type Specialty Care Team Description 12/20/2021 Office Visit Wound Care Luis Camara, [place] 909 [place] [address] (Wo rk) 01/21/2022 Office Visit Gastroenterology Juanis Levi 2450 [place] [phone] Luis Fernando iMles MD 516 [facility] [address] [place], [place] [address] documented as of this encounter Visit Diagnoses Not on filedocumented in this encounter Additional Health Concerns Infection Onset Date Last Indicated Resolved Time MRSAComment: Added from external infection. 11/07/201406/18 Assessment Noted Time PHQ-9 Depression Total Score: 2 12/15/2020 1:07 PM CDT documented as of this encounter Care Teams Landscape Specialist Relationship Specialty Start Date End Date Juanis Levi PCP - General Addiction Medicine 06/29/21 2450 [place] [phone] Stephani Pina APRN ROLL CLAMP OPERATOR Assigned PCP 02/25/[address] [place], [place] [address] documented as of this encounter
--- OUTSIDE RECORDS SUMMARY | 2021-12-05 19:19 | XMS_ITS | Encounter Summary ---
:1980 Author Organization [place] Address 2450 [facility] [place] [address] Care Team Providers Name Role Phone Stephani Pina FARZANA DRILLER BRAKE LINING Unavailable [phone] Juanis Levi Primary Care Provider Elsa Yeh RN Unavailable Unavailable Encounter Details Date Type Department Care Team Description 07/28/2021 Home Infusion [facility] Infusi on Suze Evans, [facility] [address] [facility] [address] [place], [place] [phone] [place] [address] [place] [address] (Wo rk) Social History Tobacco Use Types Packs/Day Years Used Date Smoking Tobacco: Every Day Cigarettes 0.3 10 Smokeless Tobacco: Never Comments: 5-8 cigarettes a day Alcohol Use Standard Drinks/Week Comments Not Currently 0 (1 standard drink = 0.6 oz pure alcoho l) sober since 08/2020 Sex Assigned at Date Recorded Female 01/14/2020 10:57 AM BAR AND FILLER ASSEMBLER documented as of this encounter Progress Notes Shawn July - 07/28/2021 9:44 AM CDT Therapy: IV Abx Insurance: [facility] Patient will have coverage for IV Abx through the [facility] Medicaid plan at 100% with a possible copay per dispense for the drug (Typically ranges from $0-$8) Please contact Intake with any questions, or In Basket pool, [facility] ([phone]). documented in this encounter Plan of Treatment Upcoming Encounters Date Type Specialty Care Team Description 12/20/2021 Office Visit Wound Care Luis Camara, [place] [address] [facility] [address] (Wo rk) 01/21/2022 Office Visit Gastroenterology Juanis Levi 2450 [place] [address] Luis Fernando Miles MD 516 [facility] [place], [place] [address] documented as of this encounter Visit Diagnoses Not on filedocumented in this encounter Additional Health Concerns Infection Onset Date Last Indicated Resolved Time MRSAComment: Added from external infection. 11/07/2014 05/02/2021 Assessment Noted Time PHQ-9 Depression Total Score: 2 12/15/2020 1:07 PM CDT documented as of this encounter Care Teams Paint Striping Machine Operator Relationship Specialty Start Date End Date Juanis Levi PCP - General Addiction Medicine 06/29/21 2450 [place] [address] Stephani Pina, DEFENSIVE DRIVING INSTRUCTOR DRILLER BRAKE LINING Assigned PCP 02/25/21 [address] [place], [place] [address] Elsa Yeh, RN Registered Nurse Infectious Diseases 07/25/21 documented as of this encounter
--- OUTSIDE RECORDS SUMMARY | 2021-12-05 19:19 | XMS_ITS | Encounter Summary ---
:1980 Author Organization [place] Address [address] [place] [address] Care Team Providers Name Role Phone Stephani Pina RESP THERAPIST METAL EXPEDITER Unavailable Juanis Levi Primary Care Provider Elsa Yeh RN Unavailable Unavailable Reason for Visit Reason Comments Schedule Surgery Encounter Details Date Type Department Care Team Description 08/01/2021 Documentation Only [facility] Camryn Christina [facility] Surgery Plastic and MD Lexie Reconstructive Surgery [address] [place] [address] [address] [address] [place], [place] [phone] [address] (Work) [phone] Social History Tobacco Use Types Packs/Day Years Used Date Smoking Tobacco: Every Day Cigarettes 0.3 10 Smokeless Tobacco: Never Comments: 5-8 cigarettes a day Alcohol Use Standard Drinks/Week Comments Not Currently 0 (1 standard drink = 0.6 oz pure alcoho l) sober since 08/2020 Sex Assigned at Date Recorded Female 01/14/2020 10:57 AM COMBAT CONTROL COVID-19 Exposure Response Date Recorded In the last 10 days, have you been in contact with No / Unsu re 07/31/2021 1:25 PM CDT someone who was confirmed or suspected to have Coronavirus/COVID-19? documented as of this encounter Progress Notes Yessenia Marquez - 08/01/2021 10:05 AM CDT RN Broadcast Engineer: Lesly Pina; [phone] Surgery is scheduled with Dr. Christina on 08/15 at the [facility] Scheduled per orders [...] Visit Wound Care Luis Camara DPM 909 [place], [place] [phone] (Wo rk) 01/21/2022 Office Visit Gastroenterology Juanis Levi 2450 [place] [address] Luis Fernando Miles MD [address] [address] documented as of this encounter Visit Diagnoses Not on filedocumented in this encounter Additional Health Concerns Infection Onset Date Last Indicated Resolved Time MRSAComment: Added from external infection. 11/07/201406/18 Assessment Noted Time PHQ-9 Depression Total Score: 2 12/15/2020 1:07 PM CDT documented as of this encounter Care Teams Lock Corner Machine Operator Relationship Specialty Start Date End Date Juanis Levi PCP - General Addiction Medicine 06/29/[address] [place] [address] Stephani Pina APRN METAL EXPEDITER Assigned PCP 02/25/[address] [place] [address] 700 [place] [address] Elsa Yeh, RN Registered Nurse Infectious Diseases 07/25/21 documented as of this encounter
--- OUTSIDE RECORDS SUMMARY | 2021-12-05 19:19 | XMS_ITS | Encounter Summary ---
:1980 Author Organization [place] Address [address] [place] [address] Care Team Providers Name Role Phone Stephani Pina APRN RETAIL SALES DIRECTOR Unavailable [phone] Juanis Levi Primary Care Provider Elsa Yeh RN Unavailable Unavailable Rogelio Treadwell MD Unavailable [phone] Encounter Details Date Type Department Care [...] at Date Recorded Female 01/14/2020 10:57 AM PATTERNMAKER PLASTER AND PLASTIC COVID-19 Exposure Response Date Recorded In the last 10 days, have you been in contact with No / Unsu re 08/15/2021 12:42 PM CDT someone who was confirmed or suspected to have Coronavirus/COVID-19? documented as of this encounter Plan of Treatment Upcoming Encounters Date Type Specialty Care Team Description 12/20/2021 Office Visit Wound Care Luis Camara, [place]VIN 909 [place] [address] (Wo rk) 01/21/2022 Office Visit Gastroenterology Juanis Levi 2450 [place] [phone] Luis Fernando Miles MD 516 [facility] [place], [place] [address] documented as of this encounter Visit Diagnoses Not on filedocumented in this encounter Additional Health Concerns Infection Onset Date Last Indicated Resolved Time MRSAComment: Added from external infection. 11/07/2014 0502/2021 Assessment Noted Time PHQ-9 Depression Total Score: 2 12/15/2020 1:07 PM CDT documented as of this encounter Care Teams Carbon Paper Machine Operator Relationship Specialty Start Date End Date Juanis Levi PCP - General Addiction Medicine 06/29/21 2450 [place] [phone] Stephani Pina, Assigned PCP 02/25/21 CRYPTOGRAPHIC TECHNICIAN RETAIL SALES DIRECTOR [address] [place], [place] [address] Elsa Yeh, Registered Nurse Infectious Diseases 07/25/21 RN Rogelio Treadwell Assigned Musculoskeletal 08/04/21 MD August Provider 909 [place], [place] [address] documented as of this encounter
--- OUTSIDE RECORDS SUMMARY | 2021-12-05 19:19 | XMS_ITS | Encounter Summary ---
:1980 Author Organization [place] Address [address] [place] [address] Care Team Providers Name Role Phone Stephani Pina FARZANA TRUCK FARMER Unavailable [phone] Juanis Levi Primary Care Provider Elsa Yeh RN Unavailable Unavailable Rogelio Treadwell MD Unavailable [phone] Reason for Visit Auth/Cert Specialty Diagnoses / Procedures Referred By Contact Refer red To Contact Surgery Diagnoses Non-healing surgical wound, subsequent encounter Non-healing surgical wound, subsequent encounter [T81.89XD] [facility] Main Or Procedures HC SPLIT GRFT,HEAD,FAC,HAND,FEET <100SQCM Right ankle split skin graft from right.left thigh 909 [facility] 5th [place] [address] Phone: Fax: Referral ID Status Reason Start Date Expiration Date Visits Requ ested Visits Authorized [id number] 1 1 Encounter Details Date Type Department Care Team Description 08/15/2021 [facility] Main OR Keith Owen MD wound, subsequent [address] [place] [address] SE encount er SE [facility] 195 5th Floor [place], [place] [address] Social History Tobacco Use Types Packs/Day Years Used Date Smoking Tobacco: Former Cigarettes 0.3 10 Smokeless Tobacco: Never Comments: 5-8 cigarettes a day (hasn't s moked since in transitional care 07/23/21) Alcohol Use Standard Drinks/Week Comments Not Currently 0 (1 standard drink = 0.6 oz pure alcoho l) sober since 05/08 Sex Assigned at Date Recorded Female 01/14/2020 10:57 AM MACHINE OVERHAULER COVID-19 Exposure Response Date Recorded In [...] concern. For Medical Questions, Please Call: ? [phone], Friday - Friday, 8 a.m. - 4:30 p.m. ? After hours and on weekends, call Hospital Paging at [phone] and ask for the Plastic Surgeon applications scientist. [facility] Home Care Following Anesthesia For 24 hours after surgery: Get plenty of rest. A responsible adult must stay with you for at least 24 hours after you leave [facility]. Do not drive or use heavy [...] doctor is: Dr. Betty Christina, Plastic Surgery: [phone] Or dial [phone] and ask for the resident applications scientist for: Plastics For emergency care, call the: [facility] Emergency Department: [phone] (TTY for hearing impaired: [phone]) documented in this encounter Medications at Time [...] % Apply topically 2 71 g 0 07/0 06/2021 external times daily powderIndications: Fungal rash [...] Take 1 capsule (100 18 capsule 0 08/21/ 022 08/30/2021 (VIBRAMYCIN) 100 MG mg) by [...] type other or anxiety (H) (adjuvant pain) ibuprofen (ADVIL/MOTRIN) Take 1 tablet (200 30 tablet 0 06/202111/19/2021 200 MG mg) by mouth every 6 tabletIndications: Tooth hours as needed for pain moderate pain (Dental pain) lactulose (CEPHULAC) 20 Take 20 g [...] CDT Report given to GENARO Rooney at [facility]. Camryn Christina MD - 08/15/2021 1:55 PM [...] curette to curettage the biofilm and granulation sole layer. Hemostasis was ensured, and the skin [...] MD MT: JENSHAMAR/CMQA1 Name: STEPHANI KING Account: [id number] : 1980 Procedure Date: 08/15/2021 Document: [id number] Brief Op Note - Christiano Santacruz MD - 08/15/2021 3:24 PM CDT [facility] Surgery [facility] Brief Operative Note Pre-operative diagnosis: Non-healing surgical [...] Luis Camara DPM 909 [place], [place] [address]25 (Wo rk) 01/21/2022 Office Visit Gastroenterology Juanis Levi 2450 [place] [phone] Luis Fernando Miles MD 516 [facility] 2A [place], [place] [address] documented as of this encounter Procedures Procedure Name Priority Date/Time Associated Diagnosis [facility] SURGICAL PROCUREMENT, 08/15/2021 2:16 PM CDT Non-heali ng surgical GRAFT, SKIN, wound, subsequent SPLIT-THICKNESS, encounter EXTREMITY Special Needs Wound VAC ordered and approv ed. Please make sure patient brings wound vac and all supplies with on DOS. PT GREG GALEAS RESIDES AT [facility]: PLEASE CALL [phone] WITH ANY I NSTRUCTIONS AND TIME CHANGES FOR 08/15 SURGERY. THEY SET UP TRANSPORT ETC. Cristin [facility] Admission Notes since beginning of July; Dr. [...] documented as of this encounter Care Teams Insurance Producer Relationship Specialty Start Date End Date Juanis Levi PCP - General Addiction Medicine 06/29/21 7150 [place] [address] Stephani Pina, Assigned PCP 02/25/21 WASTE SPECIALIST TRUCK FARMER [facility] 700 [place] [address] Elsa Yeh, Registered Nurse Infectious Diseases 07/25/21 RN Rogelio Treadwell Assigned Musculoskeletal 08/04/21 MD August Provider [address] [place] [address] documented as of this encounter
--- OUTSIDE RECORDS SUMMARY | 2021-12-05 19:19 | XMS_ITS | Encounter Summary ---
:1980 Author Organization [place] Address [facility] [place] [address] Care Team Providers Name Role Phone Stephani Pina SHIRT IRONER BUSINESS INFORMATION CONSULTANT Unavailable [phone] Juanis Levi Primary Care Provider Elsa Yeh RN Unavailable Unavailable Encounter Details Date Type Department Care Team Description 07/31/2021 Orders Only [facility] Camryn Christina surgical Plastic and MD Lexie wound, subsequent Reconstructive Surgery [address] en counter ([facility] 195 Dx) 909 [place], [place] 4th Floor [address] [place] [address] [phone] [address] (Work) [phone] Social History Tobacco Use Types Packs/Day Years Used Date Smoking Tobacco: Every Day Cigarettes 0.3 10 Smokeless Tobacco: Never Comments: 5-8 cigarettes a day Alcohol Use Standard Drinks/Week Comments Not Currently 0 (1 standard drink = 0.6 oz pure alcoho l) sober since 08/2020 Sex Assigned at Date Recorded Female 01/14/2020 10:57 AM CLINICAL SOCIAL WORK THERAPIST documented as of this encounter Plan of Treatment Upcoming Encounters Date Type Specialty Care Team Description 12/20/2021 Office Visit Wound Care Luis Camara, CALVIN 909 [place] [address] (Wo rk) 01/21/2022 Office Visit Gastroenterology Juanis Levi 2450 [place] [phone] Luis Fernando Miles MD 6 [facility] [place], [place] [address] documented as of this encounter Visit Diagnoses Diagnosis Non-healing surgical wound, subsequent e ncounter - Primary documented in this encounter Additional Health Concerns Infection Onset Date Last Indicated Resolved Time MRSAComment: Added from external infection. 11/07/201406/18 Assessment Noted Time PHQ-9 Depression Total Score: 2 12/15/2020 1:07 PM CDT documented as of this encounter Care Teams Workforce Planner Relationship Specialty Start Date End Date Juanis Levi PCP - General Addiction Medicine 06/29/21 2450 [place] [address] Stephani Pina APRN BUSINESS INFORMATION CONSULTANT Assigned PCP 02/25/[address] [place], [place] [address] Elsa Yeh, RN Registered Nurse Infectious Diseases 07/25/21 documented as of this encounter
--- OUTSIDE RECORDS SUMMARY | 2021-12-05 19:19 | XMS_ITS | Encounter Summary ---
:1980 Author Organization [place] Address 2450 [facility] [place] [address] Care Team Providers Name Role Phone Stephani Pina FARZANA CLASSROOM INSTRUCTOR Unavailable [phone] Juanis Levi Primary Care Provider Elsa [...] at Date Recorded Female 01/14/2020 10:57 AM GUNSTOCK REPAIRER COVID-19 Exposure Response Date Recorded In the last 10 days, have you been in contact with No / Unsu re 07/31/2021 1:25 PM CDT someone who was confirmed or suspected to have Coronavirus/COVID-19? documented as of this encounter Plan of Treatment Upcoming Encounters Date Type Specialty Care Team Description 12/20/2021 Office Visit Wound Care Luis Camara DPM 909 [place], [place] [address]75 (Wo rk) 01/21/2022 Office Visit Gastroenterology Juanis Levi 2450 [place] [address] Luis Fernando Miles MD 516 [facility] [address]A [place] [address] documented as of this encounter Visit Diagnoses Not on filedocumented in this encounter Additional Health Concerns Infection Onset Date Last Indicated Resolved Time MRSAComment: Added from external infection. 11/07/201406/18 Assessment Noted Time PHQ-9 Depression Total Score: 2 12/15/2020 1:07 PM CDT documented as of this encounter Care Teams Project Geologist Relationship Specialty Start Date End Date Juanis Levi PCP - General Addiction Medicine 06/29/[address] [place] [phone] Stephani Pina APRN CLASSROOM INSTRUCTOR Assigned PCP 02/25/21 [facility] [address] [place], [place] [address] Elsa Yeh, RN Registered Nurse Infectious Diseases 07/25/21 documented as of this encounter
--- OUTSIDE RECORDS SUMMARY | 2021-12-05 19:19 | XMS_ITS | Encounter Summary ---
:1980 Author Organization [place] Address [address] [place] [address] Care Team Providers Name Role Phone Stephani Pina FARZANA CANDLE WICKER Unavailable [phone] Juanis Levi Primary Care Provider Elsa Yeh RN Unavailable Unavailable Rogelio Treadwell MD Unavailable [phone] Reason for Visit Auth/Cert Specialty Diagnoses / Procedures Referred By Contact Refer red To Contact Surgery Diagnoses Non-healing surgical wound, subsequent encounter Non-healing surgical wound, subsequent encounter [T81.89XD] [facility] Main Or Procedures HC SPLIT GRFT,HEAD,FAC,HAND,FEET <100SQCM Right ankle split skin graft from right.left thigh 909 [facility] 5th [place] [address] Phone: Fax: Referral ID Status Reason Start Date Expiration Date Visits Requ ested Visits Authorized [id number] 1 1 Encounter Details Date Type Department Care Team Description 08/15/2021 Anesthesia Event [facility] Karen Garnett MD 420 [facility] [address] [place] [address] OR Roosevelt Faye MD 420 [place] [address] [address] Anesthesia Record Procedure Summary Procedure [...] Placement Rubia Pina, Km Pina, Time: 1426 CRUTCHING CONTRACTOR TANK TERMINAL GAUGER CRUTCHING CONTRACTOR TANK TERMINAL GAUGER documented in this encounter Social History Tobacco [...] at Date Recorded Female 01/14/2020 10:57 AM PROMOTIONS INTERN COVID-19 Exposure Response Date Recorded In the [...] So Luciano MD; Location: [facility] OR ??? AUDOGRAPH OPERATOR SURGERY ??? IRRIGATION AND DEBRIDEMENT FOOT, COMBINED [...] and realistic alternatives discussed. Questions answered and patient/national account representative(s) expressed understanding. - Discussed: - Discussed [...] Anesthesia Care Transfer Note - Rubia Pina, CRUTCHING CONTRACTOR TANK TERMINAL GAUGER - 08/15/2021 3:34 PM CDT Patient: Stephani [...] Visit Wound Care Luis Camara DPM 909 [place], [place] [address] (Wo rk) 01/21/2022 Office Visit Gastroenterology Juanis Levi 2450 [place] [phone] Luis Fernando Miles MD [address] [address] documented as of this encounter Visit Diagnoses [...] documented as of this encounter Care Teams Demand Generator Manager Relationship Specialty Start Date End Date Juanis Levi PCP - General Addiction Medicine 06/29/21 2450 [place] [phone] Stephani Pina, Assigned PCP 02/25/21 CRUTCHING CONTRACTOR CANDLE WICKER [address] [place] [address] Elsa Yeh, Registered Nurse Infectious Diseases 07/25/21 Rogelio Wilson Assigned Musculoskeletal 08/04/21 MD August Provider 9 [place] [address] documented as of this encounter
--- OUTSIDE RECORDS SUMMARY | 2021-12-05 19:19 | XMS_ITS | Encounter Summary ---
:1980 Author Organization [place] Address [address] [place] [address] Care Team Providers Name Role Phone Stephani Pina REGIONAL TRUCK DRIVER WET ROOM WORKER Unavailable [phone] Juanis Levi Primary Care Provider Elsa Yeh RN Unavailable Unavailable Reason for Visit Reason Onset Date Comments Previsit 07/31/2021 Encounter Details Date Type Department Care Team Description 07/31/2021 PRE VISIT [facility] Rogelio Treadwell, Previsit Orthopedic Clinic [address] [place] [phone] Social History Tobacco Use Types Packs/Day Years Used Date Smoking Tobacco: Every Day Cigarettes 0.3 10 Smokeless Tobacco: Never Comments: 5-8 cigarettes a day Alcohol Use Standard Drinks/Week Comments Not Currently 0 (1 standard drink = 0.6 oz pure alcoho l) sober since 08/2020 Sex Assigned at Date Recorded Female 01/14/2020 10:57 AM CHEF GERMAN documented as of this encounter Miscellaneous Notes Telephone Encounter - Anabelle Hamilton - 07/26/2021 11:08 AM CDT DIAGNOSIS: 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 [facility] 12.4.19 R ankle 11.21.05 R ankle Action 6.9.22 11:12 AM KAVEH Action Taken Called [facility] fim desk and LVM for image Action July 27, 2021 4:33 PM MT Action Taken CSS recvd and resolved imgs to PACS. documented in this encounter Plan of Treatment Upcoming Encounters Date Type Specialty Care Team Description 12/20/2021 Office Visit Wound Care Luis Camraa DPM 909 [place], [place] [phone] (Wo rk) 01/21/2022 Office Visit Gastroenterology Juanis Levi 2450 [place] [phone] Luis Fernando Miles MD 516 [facility] 2[address] [place], [place] [phone] documented as of this encounter Visit Diagnoses Not on filedocumented in this encounter Additional Health Concerns Infection Onset Date Last Indicated Resolved Time MRSAComment: Added from external infection. 11/07/2014 05/02/2021 Assessment Noted Time PHQ-9 Depression Total Score: 2 12/15/2020 1:07 PM CDT documented as of this encounter Care Teams Analytics Lead Relationship Specialty Start Date End Date Juanis Levi PCP - General Addiction Medicine 06/29/[address] [place] [phone] Stephani Pina APRN WET ROOM WORKER Assigned PCP 02/25/[address] [place], [place] [address] Elsa Yeh, RN Registered Nurse Infectious Diseases 07/25/21 documented as of this encounter
--- OUTSIDE RECORDS SUMMARY | 2021-12-05 19:19 | XMS_ITS | Encounter Summary ---
:1980 Author Organization [place] Address [address] [place] [address] Care Team Providers Name Role Phone Stephani Pina SECURITY OPERATIONS ANALYST SLUSHER OPERATOR Unavailable [phone] Juanis Levi Primary Care Provider Elsa Yeh RN Unavailable Unavailable Encounter Details Date Type Department Care Team Description 07/11/2021 Telephone [facility] Medical Office [address] [facility] [address] [place] [address] Suite [facility] [phone] [place] [address] Social History Tobacco Use Types Packs/Day Years Used Date Smoking Tobacco: Every Day Cigarettes 0.3 10 Smokeless Tobacco: Never Comments: 5-8 cigarettes a day Alcohol Use Standard Drinks/Week Comments Not Currently 0 (1 standard drink = 0.6 oz pure alcoho l) sober since 08/2020 Sex Assigned at Date Recorded Female 01/14/2020 10:57 AM VENEER SORTER COVID-19 Exposure Response Date Recorded In [...] Sebastian Mcknight Bohm, Cadieux or Ever at [facility] at [facility] for next available appointment. Is patient a TAYO lift? Card Punching Machine Operator to inquire Routing to clinic coordinator Ann Marie Eckert. Orders pending. Telephone [...] not manage these types of wounds in [place] and do not do wound vac dressing changes in clinic. Thank you, Marilynn Harrison RN documented in this encounter Plan of Treatment Upcoming Encounters Date Type Specialty Care Team Description 12/20/2021 Office Visit Wound Care Luis Camara DPM 909 [place] [address] (Wo rk) 01/21/2022 Office Visit Gastroenterology Juanis Levi 24[address] [place] [address] Luis Fernando Miles MD [address] [address] documented as of this encounter Visit Diagnoses Diagnosis Leg ulcer, right, with unspecified sever ity (H) - Primary documented in this encounter Additional Health Concerns Infection Onset Date Last Indicated Resolved Time MRSAComment: Added from external infection. 11/07/2014 05/02/2021 Assessment Noted Time PHQ-9 Depression Total Score: 2 12/15/2020 1:07 PM CDT documented as of this encounter Care Teams Cashier Supervisor Relationship Specialty Start Date End Date Juanis Levi PCP - General Addiction Medicine 06/29/21 [address] [place] [phone] Stephani Pina, FARZANA SLUSHER OPERATOR Assigned PCP 02/25/[address] [place] [address] Elsa Yeh, RN Registered Nurse Infectious Diseases 07/25/21 documented as of this encounter
--- OUTSIDE RECORDS SUMMARY | 2021-12-05 19:19 | XMS_ITS | Encounter Summary ---
:1980 Author Organization [place] Address [facility] [place] [address] Care Team Providers Name Role Phone Stephani Pina FARZANA STRATEGIC DEBRIEFING SPECIALIST Unavailable [phone] Juanis Levi Primary Care Provider Elsa [...] Department Care Team Description 07/31/2021 Office Visit [facility] Rogelio Treadwell Pain in joint, ankle Orthopedic Clinic MD August and foot, right [address] (Primary Dx) [address] [place], [place] 4th Floor [address] [place], [place] [phone] (Wo rk) [address] [phone] Social History Tobacco Use Types Packs/Day Years Used Date Smoking Tobacco: Every Day Cigarettes 0.3 10 Smokeless Tobacco: Never Comments: 5-8 cigarettes a day Alcohol Use Standard Drinks/Week Comments Not Currently 0 (1 standard drink = 0.6 oz pure alcoho l) sober since 08/2020 Sex Assigned at Date Recorded Female 01/14/2020 10:57 AM GRINDER SET UP OPERATOR EXTERNAL COVID-19 Exposure Response Date Recorded In the [...] Visit Wound Care Luis Camara DPM 909 [place], [place] [address] (Wo rk) 01/21/2022 Office Visit Gastroenterology Juanis Levi [address] [place] [phone] Luis Fernando Miles MD 516 [facility] [address] [place], [place] [address] documented as of this encounter Visit Diagnoses Diagnosis Pain in joint, ankle and foot, right - P rimary documented in this encounter Additional Health Concerns Infection Onset Date Last Indicated Resolved Time MRSAComment: Added from external infection. 11/07/201406/18 Assessment Noted Time PHQ-9 Depression Total Score: 2 12/15/2020 1:07 PM CDT documented as of this encounter Care Teams Thread Winder Relationship Specialty Start Date End Date Juanis Levi PCP - General Addiction Medicine 06/29/[address] [place] [phone] Stephani Pina APRN STRATEGIC DEBRIEFING SPECIALIST Assigned PCP 02/25/21 [address] [facility] 700 [place] [address] Elsa Yeh, RN Registered Nurse Infectious Diseases 07/25/21 documented as of this encounter
--- OUTSIDE RECORDS SUMMARY | 2021-12-05 19:19 | XMS_ITS | Encounter Summary ---
:1980 Author Organization [place] Address [address] [place] [address] Care Team Providers Name Role Phone Stephani Pina FARZANA LAWN CARETAKER Unavailable [phone] Juanis Levi Primary Care Provider Elsa Yeh RN Unavailable Unavailable Rogelio Treadwell MD Unavailable [phone] Reason for Visit Auth/Cert Specialty Diagnoses / Procedures Referred By Contact Refer red To Contact Surgery Diagnoses Non-healing surgical wound, subsequent encounter Non-healing surgical wound, subsequent encounter [T81.89XD] [facility] Main Or Procedures HC SPLIT GRFT,HEAD,FAC,HAND,FEET <100SQCM Right ankle split skin graft from right.left thigh 909 [facility] 5th [place] [address] Phone: Fax: Referral ID Status Reason Start Date Expiration Date Visits Requ ested Visits Authorized [id number] 1 1 Encounter Details Date Type Department Care Team Description 08/15/2021 Surgery [facility] Main Camryn Christina t ankle split skin OR Keith Owen MD graft from right thigh [address] [place] [address] [facility] 5th Floor [address] [place] [address] [phone] (Wo rk) Surgery Details Date/Time Status Location [...] on DOS. PT CURRENTLY RESID ES AT [facility]: PLEASE CALL [phone] WITH ANY INSTRUCTIONS AND T LIZET CHANGES FOR 08/15 SURGERY. THEY SET UP TRANSPORT ETC. [facility] Admission No charito since beginning of [...] Date Recorded Female 01/14/2020 10:57 AM ANIMAL NURSE COVID-19 Exposure Response Date Recorded In [...] concern. For Medical Questions, Please Call: ? [phone], Friday - Friday, 8 a.m. - 4:30 p.m. ? After hours and on weekends, call Hospital Paging at [phone] and ask for the Plastic Surgeon mechanical engineering draftsperson. [facility] Home Care Following Anesthesia For 24 hours after surgery: Get plenty of rest. A responsible adult must stay with you for at least 24 hours after you leave [facility]. Do not drive or use [...] doctor is: Dr. Betty Christina, Plastic Surgery: [phone] Or dial [phone] and ask for the resident mechanical engineering draftsperson for: Plastics For emergency care, call the: [facility] Emergency Department: [phone] (TTY for hearing impaired: [phone]) documented in this encounter Medications at Time [...] Take 1 tablet (750 90 tablet 0 /06/2021 750 MG mg) by mouth 3 times tabletIndications: daily Osteomyelitis of right ankle, unspecified type (H) miconazole (MICATIN) 2 % Apply topically 2 71 g 0 07/06/2021 external times daily powderIndications: Fungal rash of [...] CDT Report given to GENARO Rooney at [facility]. Camryn Christina MD - 08/15/2021 1:55 [...] curette to curettage the biofilm and granulation duct layer. Hemostasis was ensured, and the skin [...] JENSHAMAR/[id number] Name: STEPHANI KING MRN: [id number] Account: [id number] : 1980 Procedure Date: 08/15/2021 Document: [id number] Brief Op Note - Christiano Santacruz MD - 08/15/2021 3:24 PM CDT [facility] Surgery [facility] Brief [...] Office Visit Wound Care Luis Camara, [place] [address] [place], [place] [phone] (Wo rk) 01/21/2022 Office Visit Gastroenterology Juanis Levi 2450 [place] [address] Luis Fernando Miles MD 516 [facility] [address] [place] [address] documented as of this encounter Procedures Procedure Name Priority Date/Time Associated Diagnosis Comme nts SURGICAL PROCUREMENT, 08/15/2021 2:16 PM CDT Non-heali ng surgical GRAFT, SKIN, wound, subsequent SPLIT-THICKNESS, encounter EXTREMITY Special Needs Wound VAC ordered and approv ed. Please make sure patient brings wound vac and all supplies with on DOS. PT GREG SALAZARY RESIDES AT [facility]: PLEASE CALL [phone] WITH ANY I NSTRUCTIONS AND TIME CHANGES FOR 08/15 SURGERY. THEY SET UP TRANSPORT ETC. [facility] Admission Notes since beginning of [...] documented as of this encounter Care Teams Revival Clerk Relationship Specialty Start Date End Date Juanis Levi PCP - General Addiction Medicine 06/29/21 [address]50 [place] [address] Stephani Pina, Assigned PCP 02/25/21 BIOINFORMATICS PROGRAMMER LAWN CARETAKER [address] [place], [place] [address] Elsa Yeh, Registered Nurse Infectious Diseases 07/25/21 Rogelio Wilson Assigned Musculoskeletal 08/04/21 MD August Provider 909 [place] [address] documented as of this encounter
--- OUTSIDE RECORDS SUMMARY | 2021-12-05 19:21 | XMS_ITS | Encounter Summary ---
:1980 Author Organization [place] Address [address] [place] [address] Care Team Providers Name Role Phone Clinic, [facility] Primary Care Provide r Stephani Pina Kim YANES LEARNING FACILITATOR Unavailable [phone] Reason for Visit Reason Onset Date Comments Erroneous encounter-disregard 03/07/2020 Encounter Details Date Type Department Care Team Description 03/03/2020 Virtual Visit [facility] Inocencio Newberry ERRONEOUS Hepatology Clinic JIMBO Jesus ENCOUNTER--DISREGARD [address] (Primary Dx) [address] [place] [phone] Social History Tobacco Use Types Packs/Day Years Used Date Smoking Tobacco: Every Day Cigarettes 0.3 10 Smokeless Tobacco: Never Comments: 5-8 cigarettes a day Alcohol Use Standard Drinks/Week Comments Yes 0 (1 standard drink = 0.6 oz pure alcoho l) drinking a pint of vodka daily Sex Assigned at Date Recorded Female 01/14/2020 10:57 AM RETAIL SALES ADVISOR COVID-19 Exposure Response Date Recorded In the last month, have you been in contact with No / Unsure 02/28/2020 9:23 AM RETAIL SALES ADVISOR someone who was confirmed or suspected to have Coronavirus / COVID-19? documented as of this encounter Progress Notes Violeta Mckay CMA - 03/03/2020 9:45 AM CST Not feeling well and asked to be rescheduled for next week. Violeta Mckay CMA [place] SALES ADVISOR Inocencio Newberry PA-C - 03/03/2020 9:45 AM CST This encounter was opened in error. Please disregard. [place] SALES ADVISOR documented in this encounter Plan of Treatment Upcoming Encounters Date Type Specialty Care Team Description 12/20/2021 Office Visit Wound Care Luis Camara, CALVIN [address] [place] [address] (Wo rk) 01/21/2022 Office Visit Gastroenterology Juanis Levi 2450 [place] [phone] Luis Fernando Miles MD 516 [facility] 2A [place], [place] [address] documented as of this encounter Visit Diagnoses Diagnosis ERRONEOUS ENCOUNTER--DISREGARD - Primary documented in this encounter Additional Health Concerns Assessment Noted Time PHQ-9 Depression Total Score: 6 12/27/2019 9:38 AM RETAIL SALES ADVISOR documented as of this encounter Care Teams Telegraph Printer Mechanic Relationship Specialty Start Date End Date Clinic, [facility] Medical PCP - General 01/20/18 06/28/21 [address] [place], [place] [phone] Stephani Pina APRN LEARNING FACILITATOR Assigned PCP 01/30/20 12/30/[address] [place] [address] documented as of this encounter
--- OUTSIDE RECORDS SUMMARY | 2021-12-05 19:21 | XMS_ITS | Encounter Summary ---
:1980 Author Organization [place] Address [address] [facility] [place] [address] Care Team Providers Name Role Phone Clinic, [facility] Primary Care Provide r Stephani iPna Kim LEON ARTS AND SCIENCES DEAN Unavailable [phone] Encounter Details Date Type Department Care [...] at Date Recorded Female 01/14/2020 10:57 AM INFORMATION SERVICES ASSISTANT COVID-19 Exposure Response Date Recorded In the last month, have you been in contact with No / Unsure 05/04/2021 11:13 AM CDT someone who was confirmed or suspected to have Coronavirus / COVID-19? documented as of this encounter Plan of Treatment Upcoming Encounters Date Type Specialty Care Team Description 12/20/2021 Office Visit Wound Care Luis Camara DPM 909 [place] [address] (Wo rk) 01/21/2022 Office Visit Gastroenterology Juanis Levi 2450 [place] [phone] Luis Fernando Miles MD 516 [facility] [address] [place], [place] [address] documented as of this encounter Visit Diagnoses Not on filedocumented in this encounter Additional Health Concerns Assessment Noted Time PHQ-9 Depression Total Score: 2 12/15/2020 1:07 PM CDT documented as of this encounter Care Teams Vending Attendant Relationship Specialty Start Date End Date Clinic, [facility] PCP - General 01/20/18 06/28/[address] [place] [phone] Stephani Pina APRN ARTS AND SCIENCES DEAN Assigned PCP 02/25/[address] [place] [address] documented as of this encounter
--- OUTSIDE RECORDS SUMMARY | 2021-12-05 19:21 | XMS_ITS | Encounter Summary ---
:1980 Author Organization [place] Address [address]50 [facility] [place] [address] Care Team Providers Name Role Phone Clinic, [facility] Primary Care Provide r Stephani Pina Kim LEON STUDENT RECORDS SPECIALIST Unavailable [phone] Encounter Details Date Type Department Care [...] Date Recorded Female 01/14/2020 10:57 AM IT CONSULTING DIRECTOR COVID-19 Exposure Response Date Recorded In the last month, have you been in contact with No / Unsure 03/29/2020 2:20 PM IT CONSULTING DIRECTOR someone who was confirmed or suspected to have Coronavirus / COVID-19? documented as of this encounter Plan of Treatment Upcoming Encounters Date Type Specialty Care Team Description 12/20/2021 Office Visit Wound Care Luis Camara DPM [address]09 [place] [address] (Wo rk) 01/21/2022 Office Visit Gastroenterology Juanis Levi 24[address] [place] [phone] Luis Fernando Miles MD 516 [facility] [address] [place], [place] [address] documented as of this encounter Visit Diagnoses Not on filedocumented in this encounter Additional Health Concerns Assessment Noted Time PHQ-9 Depression Total Score: 6 12/27/2019 9:38 AM IT CONSULTING DIRECTOR documented as of this encounter Care Teams International Trade Teacher Relationship Specialty Start Date End Date Clinic, [facility] PCP - General 01/20/18 06/28/21 4[address] [place] [address] Stephani Pina APRN STUDENT RECORDS SPECIALIST Assigned PCP 01/30/20 12/30/20 [address] [facility] 700 [place], [place] [address] documented as of this encounter
--- OUTSIDE RECORDS SUMMARY | 2021-12-05 19:21 | XMS_ITS | Encounter Summary ---
:1980 Author Organization [place] Address [facility] [place] [place] [address] Care Team Providers Name Role Phone Clinic, [facility] Primary Care Provide r Eufemia Pinadelon Alvarez APRN SUPPLY CHAIN BUSINESS ANALYST Unavailable Reason for Visit Reason Onset Date Comments Labs Only 02/29/2020 [facility][note 3]. Encounter Details Date Type Department Care Team Description 02/29/2020 Telephone [facility] Inocencio Newberry Labs Only ([facility] Hepatology Clinic JIMBO Jesus [facility] in [address] 9 [place] [phone] Social History Tobacco Use Types Packs/Day Years Used Date Smoking Tobacco: Every Day Cigarettes 0.3 10 Smokeless Tobacco: Never Comments: 5-8 cigarettes a day Alcohol Use Standard Drinks/Week Comments Yes 0 (1 standard drink = 0.6 oz pure alcoho l) drinking a pint of vodka daily Sex Assigned at Date Recorded Female 01/14/2020 10:57 AM BENZOL OPERATOR COVID-19 Exposure Response Date Recorded In the last month, have you been in contact with No / Unsure 02/28/2020 9:23 AM BENZOL OPERATOR someone who was confirmed or suspected to have Coronavirus / COVID-19? documented as of this encounter Miscellaneous Notes Telephone Encounter - Grothe, Ann Marie - 02/29/2020 4:25 PM CST Lab orders faxed. Patient notified. Hannah Gilmore LPN Hepatology Clinic [facility] Call Center Phone Message May a detailed message be left on voicemail: yes Reason for Call: Order(s): Other: Reason for requested: Pt is requesting for her lab orders to be sent to the [facility] in [facility] Date needed: jesus Provider name: Dr. Newberry Action Taken: Message routed to: [facility] hep Travel Screening: Not Applicable OL OPERATOR documented in this encounter Plan of Treatment Upcoming Encounters Date Type Specialty Care Team Description 12/20/2021 Office Visit Wound Care Luis Camara DPM [address]09 [place], [place] [phone] (Wo rk) 01/21/2022 Office Visit Gastroenterology Juanis Levi 2450 [place] [address] Luis Fernando Miles MD 516 [facility] 2[address] [place], [place] [address] documented as of this encounter Visit Diagnoses Diagnosis Chronic hepatitis C without hepatic coma (H) - Primary documented in this encounter Additional Health Concerns Assessment Noted Time PHQ-9 Depression Total Score: 6 12/27/2019 9:38 AM BENZOL OPERATOR documented as of this encounter Care Teams Gis Scientist Relationship Specialty Start Date End Date [facility] Medical PCP - General 01/20/18 06/28/[address] [place] [address] Stephani Pina APRN SUPPLY CHAIN BUSINESS ANALYST Assigned PCP 01/30/20 12/30/20 [address] [facility] 700 [place] [address] documented as of this encounter
--- OUTSIDE RECORDS SUMMARY | 2021-12-05 19:21 | XMS_ITS | Encounter Summary ---
:1980 Author Organization [place] Address [address] [facility] [place] [address] Care Team Providers Name Role Phone Clinic, [facility] Primary Care Provide r Stephani Pina BOMB TECHNICIAN GEOPHYSICAL PROSPECTOR Unavailable [phone] Encounter Details Date Type Department Care Team Description 02/27/2021 Office Visit [facility] Edgar Alfredo us e disorder, Clinic Ashly Gauthier MD severe, in sustained [address] [place] remission, on [address] 700 maintenance therapy [place], [place] (H) (Prim jaime Dx) [phone] Social History Tobacco Use Types Packs/Day Years Used Date Smoking Tobacco: Every Day Cigarettes 0.3 10 Smokeless Tobacco: Never Comments: 5-8 cigarettes a day Alcohol Use Standard Drinks/Week Comments Not Currently 0 (1 standard drink = 0.6 oz pure alcoho l) sober since 08/2020 Sex Assigned at Date Recorded Female 01/14/2020 10:57 AM INSOLE TOE SNIPPING 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 documented as of this encounter Progress Notes Edgar Alfredo MD - 02/27/2021 9:15 AM CST NO SHOW LE TOE SNIPPING 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 documented in this encounter Plan of Treatment Upcoming Encounters Date Type Specialty Care Team Description 12/20/2021 Office Visit Wound Care Luis Camara DPM [address] [place] [address] (Wo rk) 01/21/2022 Office Visit Gastroenterology Juanis Levi 24[address] [place] [phone] Luis Fernando Miles MD 516 [facility] [address] [place], [place] [address] documented as of this encounter Visit Diagnoses Diagnosis Opioid use disorder, severe, in sustaine d remission, on maintenance therapy (H) - Primary documented in this encounter Additional Health Concerns Assessment Noted Time PHQ-9 Depression Total Score: 2 12/15/2020 1:07 PM CDT documented as of this encounter Care Teams Nuclear Physics Teacher Relationship Specialty Start Date End Date Clinic, [facility] PCP - General 01/20/18 06/28/21 4[address] [place] [address] Stephani Pina APRN GEOPHYSICAL PROSPECTOR Assigned PCP 02/25/[address] [place] [address] documented as of this encounter
--- OUTSIDE RECORDS SUMMARY | 2021-12-05 19:21 | XMS_ITS | Encounter Summary ---
:1980 Author Organization [place] Address [address] [facility] [place] [address] Care Team Providers Name Role Phone Clinic, [facility] Primary Care Provide r YovaniStephani APRN AUTOMOTIVE ARTIST Unavailable [phone] Encounter Details Date Type Department Care [...] at Date Recorded Female 01/14/2020 10:57 AM TITLE ONE TEACHER COVID-19 Exposure Response Date Recorded In the last month, have you been in contact with No / Unsure 07/12/2020 11:10 AM CDT someone who was confirmed or suspected to have Coronavirus / COVID-19? documented as of this encounter Plan of Treatment Upcoming Encounters Date Type Specialty Care Team Description 12/20/2021 Office Visit Wound Care Luis Camara DPM [address] [place], [place] [address] (Wo rk) 01/21/2022 Office Visit Gastroenterology Juanis Levi [address] [place] [phone] Luis Fernando Miles MD [address] [facility] [facility] [address] [place], [place] [id number] documented as of this encounter Visit Diagnoses Not on filedocumented in this encounter Additional Health Concerns Assessment Noted Time PHQ-9 Depression Total Score: 6 12/27/2019 9:38 AM TITLE ONE TEACHER documented as of this encounter Care Teams Promotion Manager Relationship Specialty Start Date End Date Clinic, [facility] PCP - General 01/20/18 06/28/[address] [place] [address] Stephani Pina APRN AUTOMOTIVE ARTIST Assigned PCP 01/30/20 12/30/20 [facility] [address] [place], [place] [address] documented as of this encounter
--- OUTSIDE RECORDS SUMMARY | 2021-12-05 19:21 | XMS_ITS | Encounter Summary ---
:1980 Author Organization [place] Address [address] [facility] [place] [address] Care Team Providers Name Role Phone Clinic, [facility] Primary Care Provide r Stephani Pina Kim LEON ASSOCIATE PROFESSOR OF MUSICOLOGY Unavailable Encounter Details Date Type Department Care [...] at Date Recorded Female 01/14/2020 10:57 AM RESIDENT DIRECTOR COVID-19 Exposure Response Date Recorded In the last month, have you been in contact with No / Unsure 03/05/2021 9:18 AM RESIDENT DIRECTOR someone who was confirmed or suspected to have Coronavirus / COVID-19? documented as of this encounter Plan of Treatment Upcoming Encounters Date Type Specialty Care Team Description 12/20/2021 Office Visit Wound Care Luis Camara DPM [address] [place] [address] (Wo rk) 01/21/2022 Office Visit Gastroenterology Juanis Levi [address] [place] [address] Luis Fernando Miles MD [address] [facility] [address] [place], [place] [address] documented as of this encounter Visit Diagnoses Not on filedocumented in this encounter Additional Health Concerns Assessment Noted Time PHQ-9 Depression Total Score: 2 12/15/2020 1:07 PM CDT documented as of this encounter Care Teams Centrifugal Casting Machine Tender Relationship Specialty Start Date End Date Clinic, [facility] PCP - General 01/20/18 06/28/21 [address] [place] [address] Stephani Pina APRN ASSOCIATE PROFESSOR OF MUSICOLOGY Assigned PCP 02/25/21 [facility] [address] [place] [address] documented as of this encounter
--- OUTSIDE RECORDS SUMMARY | 2021-12-05 19:21 | XMS_ITS | Encounter Summary ---
:1980 Author Organization [place] Address [address] [facility] [place] [address] Care Team Providers Name Role Phone Clinic, [facility] Primary Care Provide r Stephani Pina APRN INDUSTRIAL PSYCHOLOGY TEACHER Unavailable Juanis Levi Primary Care Provider Elsa Yeh RN Unavailable Unavailable Rogelio Treadwell MD Unavailable [phone] Luis Camara DPM Unavailable [phone] Camryn Christina MD Unavailable Sintia Lange PA-C Unavailable Luis Fernando Miles MD Unavailable [phone] Encounter Details Date Type Department Care Team Description 02/27/2021 Telephone [facility] Nithya Alfredo MD [place] [address] [place] [address] [place] [address] [place] [id number] [phone] Social History Tobacco Use Types Packs/Day Years Used Date Smoking Tobacco: Every Day Cigarettes 0.3 10 Smokeless Tobacco: Never Comments: 5-8 cigarettes a day Alcohol Use Standard Drinks/Week Comments Not Currently 0 (1 standard drink = 0.6 oz pure alcoho l) sober since 08/2020 Sex Assigned at Date Recorded Female 01/14/2020 10:57 AM FAMILY PHYSICIAN documented as of this encounter Miscellaneous Notes [...] sick with Covid. Patient will end back Rad message as needed. Rn also gave patient the contact number to call triage back as needed. LY PHYSICIAN Telephone Encounter - Lurdes Lucas - 02/27/2021 1:55 PM CST Pt reports she missed her appt this morning because she and her family are sick with COVID. Appt wasrescheduled, but she asked for a bridge of her medications until then. LY PHYSICIAN documented in this encounter Plan of Treatment Upcoming Encounters Date Type Specialty Care Team Description 12/20/2021 Office Visit Wound Care Luis Camara DPM [address] [place] [address] (Wo rk) 01/21/2022 Office Visit Gastroenterology Juanis Levi [address] [place] [address] Luis Fernando Miles MD [address] [facility] [address] [place], [place] [address] documented as of this encounter Visit Diagnoses Not on filedocumented in this encounter Additional Health Concerns Infection Onset Date Last Indicated Resolved Time MRSAComment: Added from external infection. 11/07/201406/18 Assessment Noted Time PHQ-9 Depression Total Score: 2 12/15/2020 1:07 PM CDT documented as of this encounter Care Teams Supervisor Hand Workers Relationship Specialty Start Date End Date Clinic, [facility] PCP - General 01/20/[address] [id number] Juanis Levi PCP - General Addiction Medicine 06/29/21 [address] [facility] [place] [address] Stephani Pina, Assigned PCP 02/25/21 CHIEF SCIENTIFIC OFFICER INDUSTRIAL PSYCHOLOGY TEACHER [address] [place] [address] Elsa Yeh, Registered Nurse Infectious Diseases 07/25/21 RN Rogelio Treadwell Assigned Musculoskeletal 08/04/21 MD August Provider [address] [place], [place] [phone] Lusi Camara MD Podiatry 08/16/21 CALVIN Burnett [address] [place], [place] [address] Camryn Christina Assigned Surgical 09/01/21 09/07/21 MD Lexie Provider [address] [facility] [address] [place], [place] [address] Sintia Lange PA-C Assigned Surgical 09/08/21 [address] [facility] 4TH Provider FLOOR [place], [place] [address] Landon Warren MD Gastroenterology 11/21/21 MD Luis Fernando [address] [facility] [address] [place], [place] [address] documented as of this encounter
--- OUTSIDE RECORDS SUMMARY | 2021-12-05 19:21 | XMS_ITS | Encounter Summary ---
:1980 Author Organization [place] Address [address] [facility] [place] [address] Care Team Providers Name Role Phone Clinic, [facility] Primary Care Provide r Stephani Pina Kim LEON WINDOWS MIGRATION TECHNICIAN Unavailable [phone] Encounter Details Date Type Department Care [...] at Date Recorded Female 01/14/2020 10:57 AM LEAD SOFTWARE DEVELOPER COVID-19 Exposure Response Date Recorded In the last month, have you been in contact with No / Unsure 10/25/2020 10:49 AM CDT someone who was confirmed or suspected to have Coronavirus / COVID-19? documented as of this encounter Plan of Treatment Upcoming Encounters Date Type Specialty Care Team Description 12/20/2021 Office Visit Wound Care Luis Camara DPM [address] [place] [address] (Wo rk) 01/21/2022 Office Visit Gastroenterology Juanis Levi [address] [place] [phone] Luis Fernando Miles MD [address] [facility] [address] [place] [employer] [place], [place] [phone] documented as of this encounter Visit Diagnoses Not on filedocumented in this encounter Additional Health Concerns Assessment Noted Time PHQ-9 Depression Total Score: 6 12/27/2019 9:38 AM LEAD SOFTWARE DEVELOPER documented as of this encounter Care Teams Software Test And Validation Engineer Relationship Specialty Start Date End Date Clinic, [facility] PCP - General 01/20/18 06/28/21 [address] [place] [address] Stephani Pina APRN WINDOWS MIGRATION TECHNICIAN Assigned PCP 01/30/20 12/30/20 [facility] [address] [place] [employer] [place], [place] [address] documented as of this encounter
--- OUTSIDE RECORDS SUMMARY | 2021-12-05 19:21 | XMS_ITS | Encounter Summary ---
:1980 Author Organization [place] Address [address] [place] [address] Care Team Providers Name Role Phone Clinic, [facility] Primary Care Provide r YovaniStephani APRN REFRIGERATION INSULATOR Unavailable Reason for Visit Reason Onset Date Comments Erroneous encounter-disregard 08/25/2020 Encounter Details Date Type Department Care Team Description 08/23/2020 Virtual Visit [facility] Inocencio [place] ERRONEOUS [facility] JIMBO Jesus ENCOUNTER--DISREGARD [address] (Primary Dx) [address] [place] [phone] Social History Tobacco Use Types Packs/Day Years Used Date Smoking Tobacco: Every Day Cigarettes 0.3 10 Smokeless Tobacco: Never Comments: 5-8 cigarettes a day Alcohol Use Standard Drinks/Week Comments Not Currently 0 (1 standard drink = 0.6 oz pure drinki ng a pint of vodka daily alcohol) Sex Assigned at Date Recorded Female 01/14/2020 10:57 AM PIN STICKER COVID-19 Exposure Response Date Recorded In the [...] Visit Wound Care Luis Camara DPM [address] [facility] [address] (Wo rk) 01/21/2022 Office Visit Gastroenterology Juanis Levi [address] [place] [phone] Luis Fernando Miles MD [address] [facility] [address] [place], [place] [address] documented as of this encounter Visit Diagnoses Diagnosis ERRONEOUS ENCOUNTER--DISREGARD - Primary documented in this encounter Additional Health Concerns Assessment Noted Time PHQ-9 Depression Total Score: 6 12/27/2019 9:38 AM PIN STICKER documented as of this encounter Care Teams Power Generation Engineer Relationship Specialty Start Date End Date Clinic, [facility] PCP - General 01/20/18 06/28/21 [address] [place], [place] [phone] Stephani Pina APRN REFRIGERATION INSULATOR Assigned PCP 01/30/20 12/30/20 [address] [place] [address] documented as of this encounter
--- OUTSIDE RECORDS SUMMARY | 2021-12-05 19:21 | XMS_ITS | Encounter Summary ---
:1980 Author Organization [place] Address [address] [facility] [place] [address] Care Team Providers Name Role Phone Deann Pina APRN SWAGER OPERATOR Unavailable [phone] Juanis Mckenzie Primary Care Provider Reason for Visit Auth/Cert Specialty Diagnoses / Procedures Referred By Contact Refer red To Contact Med Surg Diagnoses Complicated Osteomyelitis Ur Ortho [address] [place] [address] Phone: Fax: Referral ID Status Reason Start Date Expiration Date Visits Requ ested Visits Authorized [id number] 1 1 Encounter Details Date Type Department Care Team Description 07/07/2021 Surgery [facility] Wm Olivera IRRIGATION AND PeriOp Services MD Flo DEBRIDEMENT, FOOT and [address] [place] [address] [address] [facility] [address] [place] [address] [place] [address] exchange [phone] (Wo rk) Surgery Details Date/Time Status Location [...] Date Recorded Female 01/14/2020 10:57 AM NUCLEAR CARDIOLOGY TECHNOLOGIST documented as of this encounter Last Filed [...] Howell MD - 07/23/2021 7:40 AM CDT [facility] Hospitalist Discharge Summary Date of Admission: 07/06/2021 Date of Discharge: 07/23/2021 Discharging Provider: Elizabeth Howell MD Discharge Service: Hospitalist Service, [facility] TEAM 17 Discharge Diagnoses # R ankle wound, osteomyelitis?? # MSSA bacteremia # Irritant versus allergic contact dermatitis ## HCV chronic infection # Transaminitis??- improving.?? # Alcohol use disorder.?? #Acute encephalopathy, suspect toxic metabolic. #Hypokalemia, hypomagnesemia #Hypothyroidism #Chronic pain #Opiate dependency #Pressure ulcers right buttock, gluteal fold #Physical deconditioning #Tobacco use disorder #Anemia, acute on chronic. Follow-ups Needed After Discharge Follow-up Appointments Adult [facility] Follow-up and recommended labs and tests Follow up with Dr Camara or Morgan with Podiatry in 1-2 weeks. Clinic phone number is [phone] Follow up with Plastic Surgery in 2 weeks. Follow up with infectious disease 4-6 weeks. Follow-up Labs: Weekly CBC w diff, BMP, CRP. Please have labs faxed to ID clinic. Appointments on [place] and/or [facility] (with [facility] or [facility] provider or service). Call [phone] if you haven't heard regarding these appointments [...] anxiety, and tobacco abuse??admitted on 07/06/21 from [facility] for further care of R ankle osteomyelitis by Orthopedics, Plastics, and Infectious Disease.? 07/19: Per patient request: Increased Subutex dose to 8 mg 3 times daily, GRINDER AND PLATER dose. Schedule Robaxin 750 3 times daily. [...] epic for recommendations.. ??>Pain control: Currently controlled. -Continue??GRINDER AND PLATER??Suboxone 8mg tid ??; scheduled APAP 975mg TID, [...] allergenic polyurethane foam dressings (Mepitac tape, Sorbiview, [id number]) over occlusive adhesive semipermeable gauze dressings; WOC [...] improving.?? # Alcohol use disorder.?? HCV quant 397950??at OSH. ??AST 117, ALT 44, and AP [...] with periods of confusion early in admission. ??Sugar Tree to be??toxic vs metabolic??/ ?withdrawal, infection, sepsis. [...] CONSULT FOR [facility] MEDSU PHYSICAL THERAPY ADULT IP CONSULT OCCUPATIONAL THERAPY ADULT IP CONSULT INFECTIOUS DISEASE [facility] ADULT IP CONSULT ORTHOPAEDIC SURGERY ADULT/PEDS IP [...] [facility] [facility] [address] [place] [id number] Physical Exam Vital Signs: Temp: 98.6 ??F [...] performing Friday and Friday VAC changes Adult [facility] Follow-up and recommended labs and tests Follow up with Dr Camara or Morgan with Podiatry in 1-2 weeks. Clinic phone number is [phone] Follow up with Plastic Surgery in 2 weeks. Follow up with infectious disease 4-6 weeks. Follow-up Labs: Weekly CBC w diff, BMP, CRP. Please have labs faxed to ID clinic. Appointments on [place] and/or [facility] (with [facility] or [facility] provider or service). Call [phone] if you haven't heard regarding these appointments [...] MD Echo Complete Value LVEF 55-60% Narrative [id number]^BUTCH^JAIME [facility],[place] [facility] [address] [place] [address] Name: DEANN KING : 1980 Study Date: 07/08/2021 12:07 PM Age: 40 yrs Gender: Female Patient [place] [facility] Reason For Study: Endocarditis Ordering Physician: JAIME [...] Qty: 90 tablet, Refills: 0 Comments: JAMES: [id number] Associated Diagnoses: Opioid use disorder, severe, in [...] Rae MD - 07/21/2021 12:29 PM CDT [facility] Hospitalist Discharge Summary Date of Admission: 07/06/2021 Date of Discharge: 07/21/2021 Discharging Provider: Jaime Rae MD Discharge Service: Hospitalist Service, [facility] TEAM 17 Discharge Diagnoses # R ankle wound, osteomyelitis?? # MSSA bacteremia # Irritant versus allergic contact dermatitis ## HCV chronic infection # Transaminitis??- improving.?? # Alcohol use disorder.?? #Acute encephalopathy, suspect toxic metabolic. #Hypokalemia, hypomagnesemia #Hypothyroidism #Chronic pain #Opiate dependency #Pressure ulcers right buttock, gluteal fold #Physical deconditioning #Tobacco use disorder #Anemia, acute on chronic. Follow-ups Needed After Discharge Follow-up Appointments Adult [facility] Follow-up and recommended labs and tests Follow up with Dr Camara or Morgan with Podiatry in 1-2 weeks. Clinic phone number is [phone] Follow up with Plastic Surgery in 2 weeks. Follow up with infectious disease 4-6 weeks. Follow-up Labs: Weekly CBC w diff, BMP, CRP. Please have labs faxed to ID clinic. Appointments on [place] and/or [facility] (with [facility] or [facility] provider or service). Call [phone] if you haven't heard regarding these appointments [...] anxiety, and tobacco abuse??admitted on 07/06/21 from [facility] for further care of R ankle osteomyelitis by Orthopedics, Plastics, and Infectious Disease.? 07/19: Per patient request: Increased Subutex dose to 8 mg 3 times daily, GRINDER AND PLATER dose. Schedule Robaxin 750 3 times daily. [...] epic for recommendations.. ??>Pain control: Currently controlled. -Continue??GRINDER AND PLATER??Suboxone 8mg tid ??; scheduled APAP 975mg TID, [...] allergenic polyurethane foam dressings (Mepitac tape, Sorbiview, [id number]) over occlusive adhesive semipermeable gauze dressings; WOC [...] improving.?? # Alcohol use disorder.?? HCV quant 331926??at OSH. ??AST 117, ALT 44, and AP [...] with periods of confusion early in admission. ??Sugar Tree to be??toxic vs metabolic??2/2 ?withdrawal, infection, sepsis. [...] CONSULT FOR [facility] MEDSU PHYSICAL THERAPY ADULT IP CONSULT OCCUPATIONAL THERAPY ADULT IP CONSULT INFECTIOUS DISEASE [facility] ADULT IP CONSULT ORTHOPAEDIC SURGERY ADULT/PEDS IP [...] [facility] [address] [place] [phone] Physical Exam Vital Signs: Temp: 98.3 ??F (36.8 ??C) Temp src: Oral BP: 121/68 Pulse: 68 Resp: 16 SpO2: 100 % O2 Device: None (Room air) Weight: 175 lbs 0 oz General Appearance: Awake, interactive, NAD HEENT: AT/NC, Anicteric, Moist MM Neck: Supple. Respiratory: Normal work of breathing. RA. Cardiovascular: S1 S2 Regular. GI/Abd: Nondistended. Extremities: Right ankle area: gsu wrap. Wound vac+ Neuro: AO x 4, [...] performing Friday and Friday VAC changes Adult [facility] Follow-up and recommended labs and tests Follow up with Dr Camara or Morgan with Podiatry in 1-2 weeks. Clinic phone number is [phone] Follow up with Plastic Surgery in 2 weeks. Follow up with infectious disease 4-6 weeks. Follow-up Labs: Weekly CBC w diff, BMP, CRP. Please have labs faxed to ID clinic. Appointments on [place] and/or [facility] (with [facility] or [facility] provider or service). Call [phone] if you haven't heard regarding these appointments [...] MD Echo Complete Value LVEF 55-60% Narrative [id number]^BUTCH^JAIME [facility],[place] [facility] [address] [place] [address] Name: DEANN KING : 1980 Study Date: 07/08/2021 12:07 PM Age: 40 yrs Gender: Female Patient Location: [facility] Reason For Study: Endocarditis Ordering Physician: JAIME [...] Qty: 90 tablet, Refills: 0 Comments: SIMRANBHARAT: [id number] Associated Diagnoses: Opioid use disorder, severe, in [...] with vac drape prior to applying sponge breeder service technician to assess integrity of dressing and ensure [...] from the original note were not included. [facility] Nurse Inpatient Assessment Today's Assessment: Right lateral [...] with vac drape prior to applying sponge breeder service technician to assess integrity of dressing and ensure [...] to notify the Provider(s) and re-consult the [facility] Nurse if new skin concern. [...] 19 Lisa Chandler RN, CWOCN Dept. Pager: [phone] Dept. Office Number: [phone] Tiffanie Figueroa RN - 07/23/2021 10:17 AM CDT Care Management Discharge Note Discharge Date: 07/23/2021 Discharge Disposition: TCU PAS Confirmation Code: [id number] Education Provided on the Discharge Plan: yes Persons Notified of Discharge Plans: patient and mother, So. Patient/Family in Agreement with the Plan: yes Handoff Referral Completed: Yes Additional Information: Plan for patient to discharge to TCU at 4pm today pending staffing. RNCC available as needed. Update 1400: [facility] to [facility] at 1600. melangeur operator and bedside RN aware. Bedside RN toarrange transport at 1600. RNCC available as needed. Dr. Mckenzie with [facility] will prescribe Suboxone at discharge. Tiffanie Machado RN, BSN Real Estate Clerk, Ortho Pager Jaime Rae MD - 07/22/2021 8:58 AM CDT [facility] Medicine Progress Note - Hospitalist Service, ONUR TEAM 17 Date of Admission: 07/06/2021 Assessment & Plan 40 year old female??with past medical history significant for opioid use disorder,??alcohol use disorder,??HCV, hypothyroidism, depression, anxiety, and tobacco abuse??admitted on 07/06/21 from [facility] for further care of R ankle osteomyelitis by Orthopedics, Plastics, and Infectious Disease.? Today's changes: 07/22/2021 Overall doing better. No new concern/changes by me Aw TCU. See discharge summary 07/21 07/19:??Per patient request: Increased Subutex dose to 8 mg 3 times daily, GRINDER AND PLATER dose. ??Schedule Robaxin 750 3 times daily. [...] epic for recommendations.. ?>Pain control: Currently controlled. -Continue??GRINDER AND PLATER??Suboxone ??8mg tid ??; scheduled APAP 975mg TID, [...] allergenic polyurethane foam dressings (Mepitac tape, Sorbiview, [id number]) over occlusive adhesive semipermeable gauze dressings; WOC [...] improving.?? # Alcohol use disorder.?? HCV quant 494559??at OSH. ??AST 117, ALT 44, and AP [...] with periods of confusion early in admission. ??Sugar Tree to be??toxic vs metabolic??2/2 ?withdrawal, infection, sepsis. [...] care was discussed with the Bedside Nurse, Real Estate Clerk/Control Systems Developer and Patient. Jaime Rae MD Hospitalist Service, [facility] TEAM [address] [place] [address] Securely message with the KiteReaders Console (learn more here) Text page via [facility] Paging/Directory Please see signed in provider for [...] Agreement with the Plan: yes Additional Information: [facility] [place] [facility] is unable to accept patient today due to staffing. Admissions requested that patient bebrought over there tomorrow at 1100. Notified charge nurse. Updated patient and she verbalized understanding and agreement to plan. MICHAEL Mehta RNCC RN Real Estate Clerk Office: [phone] Pager: [phone] Cali Zavaleta MD - 07/21/2021 12:17 PM [...] this note to the appropriate Epic pools: [facility] INFECTIOUS DISEASE ADULT [facility], [facility], [facility]/ID Clinic Information: [address] [facility], Clinic [address] [place] [address] Cali Bullock MD on 07/21/2021 at 12:19 PM Cali Bullock MD - 07/21/2021 12:03 PM CDT Images from the original note were not included. General Infectious Disease Service Progress Note - [facility] Patient: Deann King, Date of 1980, Date [...] joint effusion and synovitis . - 06/30/21 ([facility]) - Right lateral ankle deep abscess I&D, [...] subcutaneous tissue without exposed bone. - 07/02/21 ([facility]) - Right lateral ankle I&D, right lateral calcaneus hardware removal and ankle wound vac exchange. With repeat debridement the wound extended down to the bone and the hardware. All 5 screws were removed and plate was removed. The peroneal tendon and calcaneous were exposed, The defect now measured 7x 4 cm with a depth of 2 cm. - 07/04/21 ([facility]) - Right lateral ankle I&D and wound vac replacement. - 07/07/21 ([facility]) - Right ankle I&D and wound [...] The patient was then transferred to the [facility] ([facility]) on 07/06/21 for further management due [...] oxacillin susceptible. Cali Bullock MD Infectious Diseases [phone] Interval events Patient overall feels okay. Tolerating [...] to the [facility] [facility] and had a irrigation and debridement of right lateral ankle abscess and wound vac placement. The patient then returned to the OR on 07/02/21 for a repeat irrigation and debridement, lateralcalcaneus hardware removal, and wound vac exchanged. On 07/04/21, patient returned to OR for repeat I&D and wound vac exchange (see procedures below). The patient was then transferred to the [facility] ([facility]) on 07/06/21 for further management due [...] I&D and wound vac replacement. - 07/07/21 ([facility]-) - Right ankle I&D and wound [...] costs discussed: Not applicable PAS Confirmation Code: [id number] Patient/family educated on Medicare website which has current facility and service quality ratings: Yes, [facility] Education Provided on the Discharge Plan: yes Persons Notified of Discharge Plans: pt, ortho melangeur operator Adam, Dr Rae Patient/Family in Agreement with the Plan: yes Handoff Referral Completed: Yes Additional Information: SW met with pt and reviewed discharge plan, including referral to Senior Linkage line for PAS/RR. Ptwas very groggy so may not recall conversation. SW updated melangeur operator Adam and Dr. Rae with anticipated discharge to TCU today @ 1:30. YADIRA Diamond MSW [facility] Friday Control Systems Developer Text paging available through [employer] on [employer] - search SOCIAL WORK TRADITIONAL [facility] PRACTITIONER PAGER [phone] Friday ONLY! TRADITIONAL [employer] PRACTITIONER COVERAGE AFTER 1600 Alyce Israel MSW - [...] and a bed become available. ADDENDUM 10:23: Sales Trader informed by Leslie Parikh prevocational/rehabilitation counselor that there may be a discharge from TCU this afternoon and could possibly accept pt for admissions at 1:30. She is requesting Rapid Covid Test. SW informed Ortho melangeur operator Cuate, who will request rapid COVID Test. JACKIE completed PAS/RR on line: [id number]. Pt updated. YADIRA Diamond MSW [facility] Friday Control Systems Developer Text paging available through [employer] on [place] [employer] - search SOCIAL WORK TRADITIONAL [facility] PRACTITIONER PAGER [phone] - [phone] Friday ONLY! TRADITIONAL [employer] PRACTITIONER COVERAGE AFTER 1600 Paulino Ybarra RN - [...] Rae MD - 07/20/2021 10:56 AM CDT [facility] Medicine Progress Note - Hospitalist Service, ONUR TEAM 17 Date of Admission: 07/06/2021 Assessment & Plan 40 year old female??with past medical history significant for opioid use disorder,??alcohol use disorder,??HCV, hypothyroidism, depression, anxiety, and tobacco abuse??admitted on 07/06/21 from [facility] for further care of R ankle osteomyelitis by Orthopedics, Plastics, and Infectious Disease.? Today's changes: 07/20/2021 Overall doing better. Rash, pruritus: improving. Pain controlled. No new concern/changes by me Aw tcu Ortho, ID, Dermatology, WOCN- following. 07/19: Per patient request: Increased Subutex dose to 8 mg 3 times daily, GRINDER AND PLATER dose. Schedule Robaxin 750 3 times daily. [...] vac. WOCN consult. ?? - Pain control: -Continue??GRINDER AND PLATER??Suboxone 8mg tid ??; scheduled APAP 975mg TID, [...] improving.?? # Alcohol use disorder.?? HCV quant 983327??at OSH. ??AST 117, ALT 44, and AP 213 on 07/05. ??Tbili 1.6. ??Albumin 2.9. ??INR 1.39. ??Started on Lactulose and Spironolactone at OSH; discussed with patient, does not recall being prescribed these meds prior to admission. ??On admission patient had a duaret in place for monitoring urine output. Removed. Currently voiding well. - Continue Lactulose for now - Follow-up CMP- improving. - US abdomen -Hepatosplenomegaly and diffuse hepatic steatosis. - follow up with Hepatology outpatient?? - Alcohol abstinence. ?? # Acute Encephalopathy??- Per chart review, patient somnolent on admission and with periods of confusion early in admission. ??Sugar Tree to be??toxic vs metabolic??2/2 ?withdrawal, infection, sepsis. [...] care was discussed with the Bedside Nurse, Real Estate Clerk/Control Systems Developer and Patient. Jaime Rae MD Hospitalist Service, [facility] TEAM [address] [place] [address] Securely message with the KiteReaders Console (learn more here) Text page via [facility] Paging/Directory Please see signed in provider for [...] from the original note were not included. [facility] Nurse Inpatient Assessment Today's Assessment: Right lateral [...] with vac drape prior to applying sponge breeder service technician to assess integrity of dressing and ensure [...] plan of care with: Patient and Nurse [facility] Nurse follow-up plan:Friday/ Notify WO if wound(s) [...] Emily Macias RN BSN CWOCN Dept. Pager: [phone] Dept. Office Number: [phone] Jaime Rae MD - 07/19/2021 12:42 PM CDT [facility] Progress Note - Hospitalist Service, ONUR TEAM 17 Date of Admission: 07/06/2021 Assessment & Plan 40 year old female??with past medical history significant for opioid use disorder,??alcohol use disorder,??HCV, hypothyroidism, depression, anxiety, and tobacco abuse??admitted on 07/06/21 from [facility] for further care of R ankle osteomyelitis by Orthopedics, Plastics, and Infectious Disease.? Today's changes: 07/19/2021 Overall doing better. Rash, pruritus: improving. Per patient request: Increased Subutex dose to 8 mg 3 times daily, GRINDER AND PLATER dose. Schedule Robaxin 750 3 times daily. [...] vac. WOCN consult. ?? - Pain control: -Continue??GRINDER AND PLATER??Suboxone 8mg tid ??; scheduled APAP 975mg TID, [...] improving.?? # Alcohol use disorder.?? HCV quant 782553??at OSH. ??AST 117, ALT 44, and AP [...] with periods of confusion early in admission. ??Sugar Tree to be??toxic vs metabolic??2/2 ?withdrawal, infection, sepsis. [...] care was discussed with the Bedside Nurse, Real Estate Clerk/Control Systems Developer and Patient. Jaime Rae MD Hospitalist Service, [facility] TEAM [address] [place] [address] Securely message with the [employer] (learn more here) Text page via [employer] Paging/Directory Please see signed in provider for [...] continue to follow. Tiffanie Machado RN, BSN Real Estate Clerk, 5 Ortho Pager Jah Thompson MD - [...] Rae MD - 07/18/2021 1:47 PM CDT [facility] Progress Note - Hospitalist Service, GOLD TEAM 17 Date of Admission: 07/06/2021 Assessment & Plan 40 year old female??with past medical history significant for opioid use disorder,??alcohol use disorder,??HCV, hypothyroidism, depression, anxiety, and tobacco abuse??admitted on 07/06/21 from [facility] for further care of R ankle [...] vac. WOCN consult. ?? - Pain control: continue??GRINDER AND PLATER??Suboxone 4mg Q4H (was taking this way at [...] improving.?? # Alcohol use disorder.?? HCV quant 573263??at OSH. ??AST 117, ALT 44, and AP [...] with periods of confusion early in admission. ??Sugar Tree to be??toxic vs metabolic??2/ ?withdrawal, infection, sepsis. [...] managed on??buprenorphine??since 2009. ??On buprenorphine 4mg QID GRINDER AND PLATER, increased to Q4H at OSH due to [...] care was discussed with the Bedside Nurse, Real Estate Clerk/Control Systems Developer and Patient. Jaime Rae MD Hospitalist Service, GOLD TEAM [address] [place] [address] Securely message with the KiteReaders Console (learn more here) Text page via [employer] Paging/Directory Please see signed in provider for [...] from the original note were not included. [facility] Nurse Inpatient Assessment Today's Assessment: Right lateral [...] with vac drape prior to applying sponge breeder service technician to assess integrity of dressing and ensure [...] 19 Lisa Chandler RN, CWOCN Dept. Pager: [phone] Dept. Office Number: [phone] Cali Bullock MD - 07/18/2021 12:44 PM CDT Images from the original note were not included. General Infectious Disease Service Progress Note - [facility] Patient: Deann King, Date of 1980, Date [...] joint effusion and synovitis . - 06/30/21 ([facility]) - Right lateral ankle deep abscess I&D, [...] subcutaneous tissue without exposed bone. - 07/02/21 ([facility]) - Right lateral ankle I&D, right lateral calcaneus hardware removal and ankle wound vac exchange. With repeat debridement the wound extended down to the bone and the hardware. All 5 screws were removed and plate was removed. The peroneal tendon and calcaneous were exposed, The defect now measured 7x 4 cm with a depth of 2 cm. - 07/04/21 ([facility]) - Right lateral ankle I&D and wound vac replacement. - 07/07/21 ([facility]) - Right ankle I&D and wound [...] The patient was then transferred to the [facility] ([facility]) on 07/06/21 for further management due [...] clinical course Cali Bullock MD Infectious Diseases [phone] Interval events Patient overall feels okay. Wound [...] the OR on 06/30/[address] [facility] and had a irrigation and debridement of right lateral ankle abscess and wound vac placement. The patient then returned to the OR on 07/02/21 for a repeat irrigation and debridement, lateralcalcaneus hardware removal, and wound vac exchanged. On 07/04/21, patient returned to OR for repeat I&D and wound vac exchange (see procedures below). The patient was then transferred to the [facility]) on 07/06/21 for further management due to [...] I&D and wound vac replacement. - 07/07/21 ([facility]-) - Right ankle I&D and wound [...] Camara. Future Appointments Date Time Provider Department [place] 07/07/2021 7:00 PM UR OT WAITLIST [facility]OT [place] 07/08/2021 8:00 AM Carmencita Li Pt, PT [facility]PT [place] ?? Carlos A Thompson MD Orthopaedic Surgery, [...] and communicate this in RD handoff. Loan eVga, MPH, RDN, LD, CNSC Tiffanie Figueroa RN [...] place for 6 weeks IV antibiotics. This technical document writer noticed a redness around the PICC site and the dressing dislodged by patient. This technical document writer notified the bedside RN. Window Framer made recommendations. See note. [facility] RN also assessed and redressed PICC site. Spoke with patient's mother, So, who agreed with the plan of patient going to TCU. So is caring for patient's three children while she is in the hospital. This technical document writer will continue to follow up on TCU referrals. Tiffanie Machado RN, BSN Real Estate Clerk, 5 Ortho Pager Alma Oswald MD - 07/17/2021 2:45 PM CDT Images from the original note were not included. [facility] Inpatient Teledermatology Store and Forward Progress Note [...] allergenic polyurethane foam dressings (Mepitac tape, Sorbiview, [id number]) over occlusive adhesive semipermeable gauze dressings; WOC [...] Oncol Nurs. 2012 May;16(2):E48-55. doi: 10.1188/12.[id number].E48-E55. PMID: [id number]. Thank you for this teledermatology consultation. Please do not hesitate to contact with any additional questions or concerns. Attending physician: Dr. Kathryn Oswald MD Dermatology Resident [facility] Relevant History: Based on chart review and direct communication with consulting team 40 year old female??with past medical history significant for opioid use disorder,??alcohol use disorder,??HCV, hypothyroidism, depression, anxiety, and tobacco abuse??admitted on 07/06/21 from [facility] for further care of R ankle [...] patient in-person. Brice Peralta MD Pronouns: he/him/his Alarm Operator Department of Dermatology [facility]: , [facility]: Lona Zhao RN - 07/17/2021 1:47 PM CDT Images from the original note were not included. Bedside RN paged VAS for assessing patient's left arm PICC due to skin issues. This technical document writer discovered that the skin was irritated [...] Rae MD - 07/17/2021 1:10 PM CDT [facility] Medicine Progress Note - Hospitalist Service, ONUR TEAM 17 Date of Admission: 07/06/2021 Assessment & Plan 40 year old female??with past medical history significant for opioid use disorder,??alcohol use disorder,??HCV, hypothyroidism, depression, anxiety, and tobacco abuse??admitted on 07/06/21 from [facility] for further care of R ankle [...] vac. WOCN consult. ?? - Pain control: continue??GRINDER AND PLATER??Suboxone 4mg Q4H (was taking this way at [...] improving.?? # Alcohol use disorder.?? HCV quant 957045??at OSH. ??AST 117, ALT 44, and AP [...] with periods of confusion early in admission. ??Sugar Tree to be??toxic vs metabolic??2/2 ?withdrawal, infection, sepsis. [...] managed on??buprenorphine??since 2009. ??On buprenorphine 4mg QID GRINDER AND PLATER, increased to Q4H at OSH due to [...] PRESENT PICC Single Lumen Left-Site Assessment: WDL except;[place];Tender Cardiac Monitoring: None Code Status: Full Code Disposition Plan Expected Discharge: 07/18/2021 Likely TCU. Anticipated discharge location: Awaiting care coordination huddle Delays: The patient's care was discussed with the Bedside Nurse, Real Estate Clerk/Control Systems Developer and Patient. Jaime Rae MD Hospitalist Service, GOLD TEAM [address] [place] [address] Securely message with the KiteReaders Console (learn more here) Text page via Miew Paging/Directory Please see signed in provider for [...] note were not included. [facility] WO Nurse Inpatient Assessment Today's Assessment: Right [...] control prior to re-starting VAC. Marilu Mar, ASSISTANT FAMILY TEACHER with Ortho will order 4% topical lidicaine [...] with vac drape prior to applying sponge breeder service technician to assess integrity of dressing and ensure [...] 18 Lisa Chandler RN, CWOCN Dept. Pager: [phone] Dept. Office Number: [phone] Cali Bullock MD - 07/17/2021 8:31 AM CDT Images from the original note were not included. General Infectious Disease Service Progress Note - [facility] Patient: Deann King, Date of 1980, Date [...] joint effusion and synovitis . - 06/30/21 ([facility]) - Right lateral ankle deep abscess I&D, [...] subcutaneous tissue without exposed bone. - 07/02/21 ([facility]) - Right lateral ankle I&D, right lateral calcaneus hardware removal and ankle wound vac exchange. With repeat debridement the wound extended down to the bone and the hardware. All 5 screws were removed and plate was removed. The peroneal tendon and calcaneous were exposed, The defect now measured 7x 4 cm with a depth of 2 cm. - 07/04/21 ([facility]) - Right lateral ankle I&D and wound vac replacement. - 07/07/21 ([facility] - Right ankle I&D and wound [...] The patient was then transferred to the [facility] ([facility]) on 07/06/21 for further management due [...] clinical course Cali Bullock MD Infectious Diseases [phone] Interval events Patient overall feels okay. Large [...] the OR on 06/30/[address] [facility] and had a irrigation and debridement of right lateral ankle abscess and wound vac placement. The patient then returned to the OR on 07/02/21 for a repeat irrigation and debridement, lateralcalcaneus hardware removal, and wound vac exchanged. On 07/04/21, patient returned to OR for repeat I&D and wound vac exchange (see procedures below). The patient was then transferred to the [facility]) on 07/06/21 for further management due to [...] I&D and wound vac replacement. - 07/07/21 ([facility] - Right ankle I&D and wound [...] 07/07/2021 7:00 PM UR OT WAITLIST [facility] [place] 07/08/2021 8:00 AM Carmencita Li Pt, PT [facility] [place] ?? Carlos A Thompson MD Orthopaedic Surgery, [...] General Infectious Disease Service Progress Note - [facility] Patient: Deann King, Date of 1980, Date [...] joint effusion and synovitis . - 06/30/21 ([facility]) - Right lateral ankle deep abscess I&D, [...] subcutaneous tissue without exposed bone. - 07/02/21 ([facility]) - Right lateral ankle I&D, right lateral calcaneus hardware removal and ankle wound vac exchange. With repeat debridement the wound extended down to the bone and the hardware. All 5 screws were removed and plate was removed. The peroneal tendon and calcaneous were exposed, The defect now measured 7x 4 cm with a depth of 2 cm. - 07/04/21 ([facility]) - Right lateral ankle I&D and wound vac replacement. - 07/07/21 ([facility]) - Right ankle I&D and wound [...] The patient was then transferred to the [facility] ([facility]) on 07/06/21 for further management due [...] The patient was then transferred to the [facility] ([facility]) on 07/06/21 for further management due [...] I&D and wound vac replacement. - 07/07/21 ([facility]) - Right ankle I&D and wound [...] Ulloa MD - 07/16/2021 1:07 PM CDT [facility] [place] [facility] Daily Note Interval History/Events Overnight [...] medications in the current medication section of [facility]. Relevant changes include: Physical Exam General: Vital [...] anxiety, and tobacco abuse??admitted on 07/06/21 from [facility] for further care of R ankle [...] vac. WOCN consult. - Pain control: continue GRINDER AND PLATER Suboxone 4mg Q4H (was taking this way [...] improving. # Alcohol use disorder. HCV quant 156449??at OSH. ??AST 117, ALT 44, and AP [...] with periods of confusion early in admission. ??Sugar Tree to be??toxic vs metabolic??2/2 ?withdrawal, infection, sepsis. [...] managed on??buprenorphine??since 2009. ??On buprenorphine 4mg QID GRINDER AND PLATER, increased to Q4H at OSH due to [...] care was discussed with the Bedside Nurse, Real Estate Clerk/Control Systems Developer, Patient andOrthopedic Team. ?? Pt's care was [...] 07/07/2021 7:00 PM UR OT WAITLIST [facility] [place] 07/08/2021 8:00 AM Carmencita Li Pt, PT [facility] [place] ?? Raisa Westbrook MD Orthopaedic Surgery, PGY-1 Jensen Ulloa MD - 07/15/2021 12:34 PM CDT [facility] [place] [facility] Daily Note Interval History/Events Overnight [...] medications in the current medication section of [facility]. Relevant changes include: Physical Exam General: Vital [...] reviewed laboratory and imaging studies in the [facility]. Pertinent findings are as below: BMP [...] anxiety, and tobacco abuse??admitted on 07/06/21 from [facility] for further care of R ankle [...] vac. WOCN consult. - Pain control: continue GRINDER AND PLATER Suboxone 4mg Q4H (was taking this way [...] improving. # Alcohol use disorder. HCV quant 580885??at OSH. ??AST 117, ALT 44, and AP [...] with periods of confusion early in admission. ??Sugar Tree to be??toxic vs metabolic??2/2 ?withdrawal, infection, sepsis. [...] managed on??buprenorphine??since 2009. ??On buprenorphine 4mg QID GRINDER AND PLATER, increased to Q4H at OSH due to [...] care was discussed with the Bedside Nurse, Real Estate Clerk/Control Systems Developer, Patient andOrthopedic Team. ?? Pt's care was [...] 07/07/2021 7:00 PM UR OT WAITLIST [facility] [place] 07/08/2021 8:00 AM Carmencita Li Pt, PT [facility] [place] ?? Raisa Westbrook MD Orthopaedic Surgery, PGY-1 Ghazala Hinkle, [facility] - 07/14/2021 2:57 PM CDT Care Management Follow Up Length of Stay (days): 8 Expected Discharge Date: 07/16/2021 Concerns to be Addressed: Information sharing with people other than patient about her PHI Patient plan of care discussed at interdisciplinary rounds: no weekend Anticipated Discharge Disposition: Home Additional Information: RN asked technical document writer to speak with patient's mother - patient's mother called upset that we are not sharing PHI with her, that the SW on the Unit did not call mother back last week and that the MD is not calling her. Sales Trader explained that without permission from a patient we are unable to share PHI. Motherof patient stated that her daughter has a dependence on alcohol and mother is concerned that her daughter does not sound clear on the phone as she has talked with her daughter (our patient) today. Sales Trader shared that we can provide a document to any patient that allows the patient to list others who are able to receive PHI. Mother stated that daughter (our patient) has verbally told her mother that this would be fine. Mother also shared that the [facility] for the patient's children (whom patient's mother is currently caring for) has recommended that patient complete a Durable Power of Landscape Supervisor for Legal/Financial - giving this power to her mother. Sales Trader explained that our [facility] does not provide a Notary for these types of documents nor do we have blank copies of this document available. Mother stated the [facility] would provide her a copy. Sales Trader stated that mother can utilize a Remote Notary and pay privately for this service. Mother asked if the social media strategist on Friday07.17.2021 would have this list and technical document writer indicated they would. Spoke with patient in room and provided the Authorization to Discuss Protected Health Information form to her. We talked about what the form meant - patient thought it was a health care directive and we talked about the difference between a HCD and this Authorization to Discuss PHI. Sales Trader clarified the [facility] policy in the absence of a HCD we would go to her legal NOK - she is and her lives in [place], she has no adult children, her parents and then her siblings. Deann thought about the form and whether she wanted to limit the information that her mother could receive. She thought this over, explained to technical document writer that her mother is overbearing and [...] paper chart. Mother - So Parker @ [phone] Brother - Colby Parker @ [phone] Sales Trader explained to patient that her mother would like to speak with the MD and patient was okay with this. Paged Dr. Ulloa with this information at 2570. JANETT Sepulveda AROMATHERAPIST 07/14/2021 Text paging available through [employer] on Cloud[employer] - search SOCIAL WORK Friday TRADITIONAL [facility] PRACTITIONER PAGER 08 - [phone] Friday TRADITIONAL [facility] PRACTITIONER PAGER 08 - 1599 Friday TRADITIONAL [facility] PRACTITIONER COVERAGE AFTER 1600 - midnight [phone] and Friday 1600 - midnight [phone] LIOT Lona Zhao RN - 07/14/2021 12:52 PM CDT Bedside nurse called to with questions regarding PICC tip location. CXR done 07/13. Per radiology, PICC tip projects over the SCV. PICC lies within the central vasculature and is appropriate for use. All questions answered at this time. Please call VAS with further questions or concerns. Jensen Ulloa MD - 07/14/2021 12:23 PM CDT [facility] [place] [facility] Daily Note Interval History/Events Overnight events reviewed Reports feeling intermittently sleepy while talking No nausea, vomiting No chest pain, shortness of breath No fever, chills. Review of Systems 4 point ROS including Respiratory, CV, GI and , other than that noted above is negative Medications I have reviewed current medications in the current medication section of [facility]. Relevant changes include: Physical Exam General: [...] reviewed laboratory and imaging studies in the [facility]. Pertinent findings are as below: BMP [...] anxiety, and tobacco abuse??admitted on 07/06/21 from [facility] for further care of R ankle [...] vac. WOCN consult. - Pain control: continue GRINDER AND PLATER Suboxone 4mg Q4H (was taking this way [...] improving. # Alcohol use disorder. HCV quant 399783??at OSH. ??AST 117, ALT 44, and AP [...] with periods of confusion early in admission. ??Sugar Tree to be??toxic vs metabolic??2/ ?withdrawal, infection, sepsis. [...] managed on??buprenorphine??since 2009. ??On buprenorphine 4mg QID GRINDER AND PLATER, increased to Q4H at OSH due to [...] care was discussed with the Bedside Nurse, Real Estate Clerk/Control Systems Developer, Patient andOrthopedic Team. ?? Pt's care was [...] 07/07/2021 7:00 PM UR OT WAITLIST [facility]OT [place] 07/08/2021 8:00 AM Carmencita Li Pt, PT [facility] [place] ?? Raisa Westbrook MD Orthopaedic Surgery, PGY-1 Raisa Santana RN - 07/13/2021 3:39 PM CDTSummary: Need PICC verification During vascular access rounds noted patient has PICC placed at outside facility. There is not a placement record or chest x-ray in the medical record. Requested chest xray from provider to confirm tip location. Questions: please page vascular access #[id number] Jensen Ulloa MD - 07/13/2021 11:54 AM CDT [facility] [place] [facility] Daily Note Interval History/Events Overnight events reviewed Reports doing well No nausea, vomiting No cough, chest pain, shortness of breath No burning urination No loose stools Review of Systems 4 point ROS including Respiratory, CV, GI and , other than that noted above is negative Medications I have reviewed current medications in the current medication section of [facility]. Relevant changes include: Physical Exam General: Vital [...] reviewed laboratory and imaging studies in the [facility]. Pertinent findings are as below: BMP [...] anxiety, and tobacco abuse??admitted on 07/06/21 from [facility] for further care of R ankle [...] vac. WOCN consult. - Pain control: continue GRINDER AND PLATER Suboxone 4mg Q4H (was taking this way [...] improving. # Alcohol use disorder. HCV quant 899923??at OSH. ??AST 117, ALT 44, and AP [...] with periods of confusion early in admission. ??Sugar Tree to be??toxic vs metabolic??2/2 ?withdrawal, infection, sepsis. [...] managed on??buprenorphine??since 2009. ??On buprenorphine 4mg QID GRINDER AND PLATER, increased to Q4H at OSH due to [...] care was discussed with the Bedside Nurse, Real Estate Clerk/Control Systems Developer, Patient andOrthopedic Team. ?? Pt's care was discussed with bedside RN, patient and during Care Team Rounds. Moses Clinton MD - 07/13/2021 11:23 AM CDT Images from the original note were not included. General Infectious Disease Service Progress Note - [facility] Patient: Deann King, Date of 1980, Date [...] joint effusion and synovitis . - 06/30/21 ([facility]) - Right lateral ankle deep abscess I&D, [...] subcutaneous tissue without exposed bone. - 07/02/21 ([facility]) - Right lateral ankle I&D, right lateral calcaneus hardware removal and ankle wound vac exchange. With repeat debridement the wound extended down to the bone and the hardware. All 5 screws were removed and plate was removed. The peroneal tendon and calcaneous were exposed, The defect now measured 7x 4 cm with a depth of 2 cm. - 07/04/21 ([facility]) - Right lateral ankle I&D and wound vac replacement. - 07/07/21 ([facility]) - Right ankle I&D and wound [...] the OR on 06/30/[address] [facility] and had a irrigation and debridement of right lateral ankle abscess and wound vac placement. The patient then returned to the OR on 07/02/21 for a repeat irrigation and debridement, lateralcalcaneus hardware removal, and wound vac exchanged. On 07/04/21, patient returned to OR for repeat I&D and wound vac exchange (see procedures below). The patient was then transferred to the [facility] ([facility]) on 07/06/21 for further management due [...] continue to follow. Dr Abdalla will be elevator constructor electric this weekend and Dr Bullock will assume care on 07/17/21 Moses Clinton MD,M.Med.Sc. Infectious Diseases Pager: [phone] Interval History: feels better today, pain is [...] The patient was then transferred to the [facility]) on 07/06/21 for further management due to [...] I&D and wound vac replacement. - 07/07/21 ([facility] - Right ankle I&D and wound [...] from the original note were not included. [facility] Nurse Inpatient Assessment Today's Assessment: Right lateral [...] with vac drape prior to applying sponge breeder service technician to assess integrity of dressing and ensure [...] Emily Macias RN BSN CWOCN Dept. Pager: [phone] Dept. Office Number: [phone] Jah Thompson MD - 07/13/2021 5:57 AM [...] 07/07/2021 7:00 PM UR OT WAITLIST [facility]OT [place] 07/08/2021 8:00 AM Carmencita Li Pt, PT [facility]PT [place] ?? Carlos A Thompson MD Orthopaedic Surgery, PGY-1 Jensen Ulloa MD - 07/12/2021 4:02 PM CDT Interviewed, and examined patient I was notified by RN her mother was worried about slurred speech and confusion Patient reports doing well. Denies any confusion or slurring speech Patient is alert, awake, and oriented on exam No focal neurodeficit Will continue to monitor closely Jensen Ulloa MD [facility] Contact information available via [facility] Paging/Directory Moses Clinton MD - 07/12/2021 11:38 AM CDT Images from the original note were not included. General Infectious Disease Service Progress Note - [facility] Patient: Deann King, Date of 1980, Date [...] joint effusion and synovitis . - 06/30/21 ([facility]) - Right lateral ankle deep abscess I&D, [...] subcutaneous tissue without exposed bone. - 07/02/21 ([facility]) - Right lateral ankle I&D, right lateral calcaneus hardware removal and ankle wound vac exchange. With repeat debridement the wound extended down to the bone and the hardware. All 5 screws were removed and plate was removed. The peroneal tendon and calcaneous were exposed, The defect now measured 7x 4 cm with a depth of 2 cm. - 07/04/21 ([facility]) - Right lateral ankle I&D and wound vac replacement. - 07/07/21 ([facility] - Right ankle I&D and wound [...] The patient was then transferred to the [facility] ([facility]) on 07/06/21 for further management due [...] Moses Donita Clinton MD,M.Med.Sc. Infectious Diseases Pager: [phone] Interval History: seen walking with PT. more [...] The patient was then transferred to the [facility] ([facility]) on 07/06/21 for further management due [...] I&D and wound vac replacement. - 07/07/21 ([facility] - Right ankle I&D and wound [...] Ulloa MD - 07/12/2021 10:34 AM CDT [facility] [place] [facility] Daily Note Interval History/Events Overnight events reviewed Reports doing well No nausea, vomiting No cough, chest pain, shortness of breath No burning urination No loose stools Review of Systems 4 point ROS including Respiratory, CV, GI and , other than that noted above is negative Medications I have reviewed current medications in the current medication section of [facility]. Relevant changes include: Physical Exam General: Vital [...] reviewed laboratory and imaging studies in the [facility]. Pertinent findings are as below: BMP [...] anxiety, and tobacco abuse??admitted on 07/06/21 from [facility] for further care of R ankle [...] vac. WOCN consult. - Pain control: continue GRINDER AND PLATER Suboxone 4mg Q4H (was taking this way [...] improving. # Alcohol use disorder. HCV quant [id number]??at OSH. ??AST 117, ALT 44, and AP [...] with periods of confusion early in admission. ??Sugar Tree to be??toxic vs metabolic??2/2 ?withdrawal, infection, sepsis. [...] managed on??buprenorphine??since 2009. ??On buprenorphine 4mg QID GRINDER AND PLATER, increased to Q4H at OSH due to [...] care was discussed with the Bedside Nurse, Real Estate Clerk/Control Systems Developer, Patient andOrthopedic Team. ?? Pt's care was [...] 07/07/2021 7:00 PM UR OT WAITLIST UROT [place] 07/08/2021 8:00 AM Carmencita Li Pt, PT [facility]PT [place] ?? Carlos A Thompson MD Orthopaedic Surgery, PGY-1 Emily Macias RN - 07/11/2021 3:39 PM CDT Images from the original note were not included. [facility] WO Nurse Inpatient Assessment Today's Assessment: Right [...] lateral ankle Change Days: / Fri by [facility] RN Supplies (including all accessories) used: small Black foam Cleanse with MicroKlenz prior to replacing VAC Suction setting: -125 Methods used: Window paned all periwound skin with vac drape prior to applying sponge breeder service technician to assess integrity of dressing and ensure [...] Emily Macias RN BSN CWOCN Dept. Pager: [phone] Dept. Office Number: [phone] Mosse Clinton MD - 07/11/2021 2:05 PM CDT Images from the original note were not included. General Infectious Disease Service Progress Note - [facility] Patient: Deann King, Date of 1980, Date [...] joint effusion and synovitis . - 06/30/21 ([facility]) - Right lateral ankle deep abscess I&D, [...] subcutaneous tissue without exposed bone. - 07/02/21 ([facility]) - Right lateral ankle I&D, right lateral calcaneus hardware removal and ankle wound vac exchange. With repeat debridement the wound extended down to the bone and the hardware. All 5 screws were removed and plate was removed. The peroneal tendon and calcaneous were exposed, The defect now measured 7x 4 cm with a depth of 2 cm. - 07/04/21 ([facility]) - Right lateral ankle I&D and wound vac replacement. - 07/07/21 ([facility] - Right ankle I&D and wound [...] The patient was then transferred to the [facility] ([facility]) on 07/06/21 for further management due [...] cx Moses Clinton MD,M.Med.Sc. Infectious Diseases Pager: [phone] Interval History: appears tired and sleepy today. [...] The patient was then transferred to the [facility] ([facility]) on 07/06/21 for further management due [...] I&D and wound vac replacement. - 07/07/21 ([facility] - Right ankle I&D and wound [...] Ulloa MD - 07/11/2021 10:52 AM CDT [facility], [place] Internal Medicine Daily Note Interval History/Events Overnight events reviewed No nausea, vomiting, chest pain, shortness of breath No fever, chills. Review of Systems 4 point ROS including Respiratory, CV, GI and , other than that noted above is negative Medications I have reviewed current medications in the current medication section of [facility]. Relevant changes include: Physical Exam General: Vital [...] anxiety, and tobacco abuse??admitted on 07/06/21 from [facility] for further care of R ankle [...] vac. WOCN consult. - Pain control: continue GRINDER AND PLATER Suboxone 4mg Q4H (was taking this way [...] improving. # Alcohol use disorder. HCV quant [id number]??at OSH. ??AST 117, ALT 44, and AP [...] with periods of confusion early in admission. ??Sugar Tree to be??toxic vs metabolic??2/2 ?withdrawal, infection, sepsis. [...] managed on??buprenorphine??since 2009. ??On buprenorphine 4mg QID GRINDER AND PLATER, increased to Q4H at OSH due to [...] care was discussed with the Bedside Nurse, Real Estate Clerk/Control Systems Developer, Patient andOrthopedic Team. ?? Pt's care was [...] belt. Underwent bedside wound vac change with [facility] nurse yesterday and tolerated it well. O: [...] Camara. Future Appointments Date Time Provider Department [place] 07/07/2021 7:00 PM UR OT WAITLIST UROT [place] 07/08/2021 8:00 AM Carmencita Li Pt, PT [facility]PT [place] ?? Carlos A Thompson MD Orthopaedic Surgery, PGY-1 Tiffanie Figueroa RN - 07/10/2021 3:07 PM CDT Care Management Initial Consult Communication Assessment Patient's communication style: spoken language (Bahamian or Bilingual) Hearing Difficulty or Deaf: no [...] continue to follow. Tiffanie Machado RN, BSN Real Estate Clerk, 5 Ortho Pager Mary Beth, Moses Duckworth MD - 07/10/2021 2:22 PM CDT Images from the original note were not included. General Infectious Disease Service Progress Note - [facility] Patient: Deann King, Date of 1980, Date [...] joint effusion and synovitis . - 06/30/21 ([facility]) - Right lateral ankle deep abscess I&D, [...] subcutaneous tissue without exposed bone. - 07/02/21 ([facility]) - Right lateral ankle I&D, right lateral calcaneus hardware removal and ankle wound vac exchange. With repeat debridement the wound extended down to the bone and the hardware. All 5 screws were removed and plate was removed. The peroneal tendon and calcaneous were exposed, The defect now measured 7x 4 cm with a depth of 2 cm. - 07/04/21 ([facility]) - Right lateral ankle I&D and wound vac replacement. - 07/07/21 ([facility]) - Right ankle I&D and wound [...] The patient was then transferred to the [facility] ([facility]) on 07/06/21 for further management due [...] cx Moses Clinton MD,M.Med.Sc. Infectious Diseases Pager: [phone] Interval History: feels a bit better. no [...] [facility] [facility] and had a irrigation and debridement of right lateral ankle abscess and wound vac placement. The patient then returned to the OR on 07/02/21 for a repeat irrigation and debridement, lateralcalcaneus hardware removal, and wound vac exchanged. On 07/04/21, patient returned to OR for repeat I&D and wound vac exchange (see procedures below). The patient was then transferred to the [facility] ([facility]) on 07/06/21 for further management due [...] I&D and wound vac replacement. - 07/07/21 ([facility] - Right ankle I&D and wound [...] Ulloa MD - 07/10/2021 9:41 AM CDT [facility] [place] Internal Medicine Daily Note Interval History/Events Overnight events reviewed Reports doing well No nausea, vomiting No chest pain, shortness of breath No fever, chills. Review of Systems 4 point ROS including Respiratory, CV, GI and , other than that noted above is negative Medications I have reviewed current medications in the current medication section of [facility]. Relevant changes include: Physical Exam General: [...] reviewed laboratory and imaging studies in the [facility]. Pertinent findings are as below: BMP [...] anxiety, and tobacco abuse??admitted on 07/06/21 from [facility] for further care of R ankle [...] vac. WOCN consult. - Pain control: continue GRINDER AND PLATER Suboxone 4mg Q4H (was taking this way at OSH, home dose 8mg tid) ; scheduled APAP 975mg TID, Gabapentin 300mg HS-> 07/08: Increase gabapentin 300 mg tid, Robaxin 750mg TID, and oxycodone 5-10mg Q3H PRN and iv dilaudid_ per Ortho recs - Will confirm Suboxone dose with [facility] 07/07/2021: Status post IRRIGATION AND [...] improving. # Alcohol use disorder. HCV quant [id number]??at OSH. ??AST 117, ALT 44, and AP [...] with periods of confusion early in admission. ??Sugar Tree to be??toxic vs metabolic??2/2 ?withdrawal, infection, sepsis. [...] managed on??buprenorphine??since 2009. ??On buprenorphine 4mg QID GRINDER AND PLATER, increased to Q4H at OSH due to [...] care was discussed with the Bedside Nurse, Real Estate Clerk/Control Systems Developer, Patient andOrthopedic Team. ?? Pt's care was [...] Camara. Future Appointments Date Time Provider Department [place] 07/07/2021 7:00 PM UR OT WAITLIST [facility]OT [place] 07/08/2021 8:00 AM Carmencita Li Pt, PT [facility]PT [place] ?? Carlos A Thompson MD Orthopaedic Surgery, PGY-1 Jaime Rae MD - 07/09/2021 12:55 PM CDT [facility] Medicine Progress Note - Hospitalist Service, [facility] TEAM 16 Date of Admission: 07/06/2021 Assessment & Plan Deann King is a 40 year old female with past medical history significant for opioid use disorder, alcohol use disorder, HCV, hypothyroidism, depression, anxiety, and tobacco abuse admitted on 07/06/21 from [facility] for further care of R ankle [...] vac. WOCN consult. - Pain control: continue GRINDER AND PLATER Suboxone 4mg Q4H (was taking this way [...] improving. # Alcohol use disorder. HCV quant [id number] at OSH. AST 117, ALT 44, and [...] with periods of confusion early in admission. Sugar Tree to be toxic vs metabolic 2/2 ?withdrawal, [...] buprenorphine since 2009. On buprenorphine 4mg QID GRINDER AND PLATER, increased to Q4H at OSH due to [...] care was discussed with the Bedside Nurse, Real Estate Clerk/Control Systems Developer, Patient andOrthopedic Team. Jaime Rae MD Hospitalist Service, GOLD TEAM [address] [place] [address] Securely message with the KiteReaders Console (learn more here) Text page via [facility] Paging/Directory Please see signed in provider for [...] Echo Complete Result Value LVEF 55-60% Narrative [id number]^BUTCH^JAIME [facility] [facility] [address] [place] [address] Name: DEANN KING : 1980 Study Date: 07/08/2021 12:07 PM Age: 40 yrs Gender: Female Patient Location: [facility] Reason For Study: Endocarditis Ordering Physician: JAIME [...] General Infectious Disease Service Progress Note - [facility] Patient: Deann King, Date of 1980, Date [...] joint effusion and synovitis . - 06/30/21 ([facility]) - Right lateral ankle deep abscess I&D, [...] subcutaneous tissue without exposed bone. - 07/02/21 ([facility]) - Right lateral ankle I&D, right lateral calcaneus hardware removal and ankle wound vac exchange. With repeat debridement the wound extended down to the bone and the hardware. All 5 screws were removed and plate was removed. The peroneal tendon and calcaneous were exposed, The defect now measured 7x 4 cm with a depth of 2 cm. - 07/04/21 ([facility]) - Right lateral ankle I&D and wound vac replacement. - 07/07/21 ([facility]) - Right ankle I&D and wound [...] The patient was then transferred to the [facility] ([facility]) on 07/06/21 for further management due [...] testing Moses Clinton MD,M.Med.Sc. Infectious Diseases Pager: [phone] Interval History: complains of worsening right ankle [...] to the OR on 06/[facility] [facility] and had a irrigation and debridement of right lateral ankle abscess and wound vac placement. The patient then returned to the OR on 07/02/21 for a repeat irrigation and debridement, lateralcalcaneus hardware removal, and wound vac exchanged. On 07/04/21, patient returned to OR for repeat I&D and wound vac exchange (see procedures below). The patient was then transferred to the [facility] ([facility]) on 07/06/21 for further management due [...] I&D and wound vac replacement. - 07/07/21 ([facility] - Right ankle I&D and wound [...] 07/07/2021 7:00 PM UR OT WAITLIST [facility]OT [place] 07/08/2021 8:00 AM Carmencita Li Pt, PT [facility] [place] ?? Carlos A Thompson MD Orthopaedic Surgery, PGY-1 Carmencita Li Pt, PT - 07/08/2021 3:37 PM CDT 07/08/21 1455 Quick Adds Type of Visit Initial PT Evaluation Production Coordinator Production Coordinator Present no Language Bahamian Living Environment People in Home child(kayden), dependent [...] Rae MD - 07/08/2021 11:25 AM CDT [facility] Medicine Progress Note - Hospitalist Service, [facility] TEAM 16 Date of Admission: 07/06/2021 Assessment & Plan Deann King is a 40 year old female with past medical history significant for opioid use disorder, alcohol use disorder, HCV, hypothyroidism, depression, anxiety, and tobacco abuse admitted on 07/06/21 from [facility] for further care of R ankle [...] HCV # Transaminitis - improving. HCV quant [id number] at OSH. AST 117, ALT 44, and [...] with periods of confusion early in admission. Sugar Tree to be toxic vs metabolic 2/2 ?withdrawal, [...] buprenorphine since 2009. On buprenorphine 4mg QID GRINDER AND PLATER, increased to Q4H at OSH due to uncontrolled pain. Doing well with addition of Oxycodone. - Will consider Addiction Med consult to help with tapering to GRINDER AND PLATER dose if needed ?? # Pressure ulcers [...] and Patient. 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 - 07/02/21 ([facility]) - Right lateral ankle I&D, right lateral calcaneus hardware removal and ankle wound vac exchange. With repeat debridement the wound extended down to the bone and the hardware. All 5 screws were removed and plate was removed. The peroneal tendon and calcaneous were exposed, The defect now measured 7x 4 cm with a depth of 2 cm. - 07/04/21 ([facility]) - Right lateral ankle I&D and wound vac replacement. - 07/07/21 ([facility]) - Right ankle I&D and wound [...] The patient was then transferred to the [facility] ([facility]) on 07/06/21 for further management due [...] continue cefazolin 2 grams IV q 8h -[facility] informed me that the blood cultures are [...] Bullock MD Date of Service: 07/08/21 Pager: [phone] Interval History: Comfortable. No new complaints. Pain [...] the OR on 06/30/[address] [facility] and had a irrigation and debridement of right lateral ankle abscess and wound vac placement. The patient then returned to the OR on 07/02/21 for a repeat irrigation and debridement, lateralcalcaneus hardware removal, and wound vac exchanged. On 07/04/21, patient returned to OR for repeat I&D and wound vac exchange (see procedures below). The patient was then transferred to the [facility] ([facility]) on 07/06/21 for further management due [...] I&D and wound vac replacement. - 07/07/21 ([facility] - Right ankle I&D and wound [...] 07/07/2021 7:00 PM UR OT WAITLIST UROT [place] 07/08/2021 8:00 AM Carmencita Li Pt, PT [facility]PT [place] ?? Nathaniel Tinoco MD Orthopaedic Surgery, PGY-4 Jaime Rae MD - 07/07/2021 2:03 PM CDT [facility] Medicine Progress Note - Hospitalist Service, ONUR TEAM 16 Date of Admission: 07/06/2021 Assessment & Plan Deann King is a 40 year old female with past medical history significant for opioid use disorder, alcohol use disorder, HCV, hypothyroidism, depression, anxiety, and tobacco abuse admitted on 07/06/21 from [facility] for further care of R ankle [...] control: continue Suboxone 4mg Q4H (increased from GRINDER AND PLATER dose 4mg QID); scheduled APAP 975mg TID, [...] # Transaminitis # ?Hypervolemia, ascites HCV quant [id number] at OSH. AST 117, ALT 44, and [...] with periods of confusion early in admission. Sugar Tree to be toxic vs metabolic 2/2 ?withdrawal, [...] buprenorphine since 2009. On buprenorphine 4mg QID GRINDER AND PLATER, increased to Q4H at OSH due to uncontrolled pain. Doing well with addition of Oxycodone. - Will consider Addiction Med consult to help with tapering to GRINDER AND PLATER dose if needed ?? # Pressure ulcers [...] Rae MD Hospitalist Service, GOLD TEAM 16 [facility] Securely message with the KiteReaders Console (learn more here) Text page via [facility] Paging/Directory Please see signed in provider for [...] a 40 year old female who speaks Bahamian. Procedure Procedure(s): IRRIGATION AND DEBRIDEMENT, FOOT and [...] given at 1031 ativan 1 mg 0953 VISUAL EDUCATOR / epidural No Capnography Telemetry ECG Rhythm: Sinus rhythm Inpatient Sand Control Worker Ordered? No Labs Glucose Lab Results Component [...] Date 07/07/21 07 - 07/08/21 0659 Shift [id number] 24 Hour Total INTAKE I.V. 600 600 [...] needing completion None LOAN MARY RN ASCOM [id number] Ernesto Martínez MD - 07/07/2021 7:54 AM [...] Garcia MD - 07/05/2021 9:53 PM CDT [facility] Transfer Triage Note Date of call: 07/05/21 Time of call: 9:54 PM Current Patient Location: [facility] Current Level of Care: Med Surg Vitals:stable [...] available Additional records may be faxed to [phone]. Transfer accepted: Yes Stability of Patient: Patient is vitally stable, with no critical labs, and will likely remain stable throughout the transfer process Level of Care Needed: Med Surg Telemetry Needed: None Expected Time of Arrival for Transfer: 8-24 hours Arrival Location: [facility] Recommendations for Management and Stabilization: Not needed Additional Comments: Patient status is too complex for this small hospital, she needs ortho and plastic and ID consultation. Hx of hep C and alcohol abuse. Sam Garcia MD documented in this encounter H&P Notes Rossana Odell CNP - 07/06/2021 2:39 PM CDT [facility] History and Physical - Hospitalist Service, [facility] TEAM 16 Date of Admission: 07/06/2021 Assessment & Plan Deann King is a 40 year old female with past medical history significant for opioid use disorder, alcohol use disorder, HCV, hypothyroidism, depression, anxiety, and tobacco abuse admitted on 07/06/21 from [facility] for further care of R ankle [...] control: continue Suboxone 4mg Q4H (increased from GRINDER AND PLATER dose 4mg QID); scheduled APAP 975mg TID, [...] # Transaminitis # ?Hypervolemia, ascites HCV quant [id number] at OSH. AST 117, ALT 44, and [...] with periods of confusion early in admission. Sugar Tree to be toxic vs metabolic 2/2 ?withdrawal, [...] buprenorphine since 2009. On buprenorphine 4mg QID GRINDER AND PLATER, increased to Q4H at OSH due to uncontrolled pain. Doing well with addition of Oxycodone. - Will consider Addiction Med consult to help with tapering to GRINDER AND PLATER dose if needed # Pressure ulcers R [...] Diet Adult DVT Prophylaxis: Pneumatic Compression Devices Daurte Catheter: Not present Central Lines: None Cardiac Monitoring: None Code Status: Full Code Clinically Significant Risk Factors Present on Admission Disposition Plan Expected Discharge: Anticipated discharge location: Awaiting care coordination huddle Delays: The patient's care was discussed with the Attending Physician, Dr. Jaime Rae. Rossana Odell [facility] Hospitalist Service, [address] Securely message with the MyColorScreenole (learn more here) Text page via [facility] Paging/Directory Please see signed in provider for [...] and tobacco abuse admitted on 07/06/21 from [facility] for further care of R ankle osteomyelitis by Orthopedics, Plastics, and Infectious Disease. Deann is resting in bed. She reports pain in her R ankle that is ongoing. Anxious about plan for continued management. She doesn't remember much from her first 1- 2 days in the hospital at [facility]. She understands that she has an infection [...] So Luciano MD; Location: UR OR ??? LOADING MACHINE TOOL SETTER SURGERY ??? ORTHOPEDIC SURGERY ??? THORACIC SURGERY [...] 4 MG/0.1ML nasal spray No No Sig: [place] 1 spray (4 mg) into one nostril [...] Deann King as part of a shared TANK CLEANING SUPERVISOR/PA visit. I personally reviewed the vital signs, [...] Order(s): DERMATOLOGY IP CONSULT [facility] Inpatient Consult Dermatology Note- Teledermatology Consult Impression/Plan: [...] not hesitate to contact the dermatology resident/faculty elevator constructor electric for any additional questions or concerns. We will continue to follow. Patient case evaluated with attending physician, Dr. Eden Oneal MD Dermatology Resident I have personally examined this patient and agree with the resident's documentation and plan of care. I have reviewed and amended the resident's note above. The documentation accurately reflects my clinical observations, diagnoses, treatment and follow-up plans. Javon Harmon MD Director Of Sports Performance Acid Splicer, Dermatology and Pediatrics [facility] Dermatology Problem List: 1. Urticaria Date of Admission: July 05, 2021 Encounter Date: 07/16/2021 Reason for Consultation: Rash of arms and legs History of Present Illness: 40 year old female with past medical history significant for opioid use disorder, alcohol use disorder, HCV, hypothyroidism, depression, anxiety, and tobacco abuse admitted on 07/06/21 from [facility] for further care of R ankle [...] Surgeon: So Luciano MD; Location: UR OR LOADING MACHINE TOOL SETTER SURGERY IRRIGATION AND DEBRIDEMENT FOOT, COMBINED Right [...] note were not included. [facility] WO Nurse Inpatient Assessment Today's Assessment: Right [...] with vac drape prior to applying sponge breeder service technician to assess integrity of dressing and ensure [...] Score: 19 Lisa Chandler RN Dept. Pager: [phone] Dept. Office Number: [phone] Clarissa Garcia MD - 07/09/2021 8:56 PM [...] by ID during admission with plan for nursing home abx course for osteomyelitis treatment. Currently, patient [...] So Luciano MD; Location: UR OR ??? LOADING MACHINE TOOL SETTER SURGERY ??? IRRIGATION AND DEBRIDEMENT FOOT, COMBINED [...] to admission Prior opioid abuse Lives in [place] alone, near her mother Not working at [...] note were not included. [facility] WO Nurse Inpatient Assessment Today's Assessment: Right buttock/thigh Right ankle being managed by ortho. No consult for vac change - will defer to ortho for care. Patient History (according to provider note(s): Deann King is a 40 year old female??with past medical history significant for opioid use disorder,??alcohol use disorder,??HCV, hypothyroidism, depression, anxiety, and tobacco abuse??admitted on 07/06/21 from [facility] for further care of R ankle [...] to notify the Provider(s) and re-consult the [facility] Nurse if new skin concern. [...] 20 Emily Macias RN CWOCN Dept. Pager: [phone] Leora Oh MD - 07/06/2021 4:17 PM CDTAssociated Order(s): INFECTIOUS DISEASE [facility] ADULT IP CONSULT Images from the original note were not included. 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 - 07/02/21 ([facility]) - Right lateral ankle I&D, right lateral calcaneus hardware removal and ankle wound vac exchange. With repeat debridement the wound extended down to the bone and the hardware. All 5 screws were removed and plate was removed. The peroneal tendon and calcaneous were exposed, The defect now measured 7x 4 cm with a depth of 2 cm. - 07/04/21 ([facility]) - Right lateral ankle I&D and wound [...] The patient was then transferred to the [facility] ([facility]) on 07/06/21 for further management due [...] grams IV q 8h - I called [facility] today and they informed me that the [...] the OR on 06/30/[address] [facility]n [facility] and had a irrigation and debridement of right lateral ankle abscess and wound vac placement. The patient then returned to the OR on 07/02/21 for a repeat irrigation and debridement, lateralcalcaneus hardware removal, and wound vac exchanged. On 07/04/21, patient returned to OR for repeat I&D and wound vac exchange (see procedures below). The patient was then transferred to the [facility] ([facility]) on 07/06/21 for further management due [...] Other Topics Concern ??? Parent/sibling w/ CABG, NV or angioplasty before 65F 55M? No Social [...] Thompson MD - 07/06/2021 1:17 PM CDT [facility] Orthopedic Surgery Consultation Deann King Age: [...] The patient was then transferred to the [facility] for further management due to exposed peroneal [...] So Luciano MD; Location: UR OR ??? LOADING MACHINE TOOL SETTER SURGERY ??? ORTHOPEDIC SURGERY ??? THORACIC SURGERY [...] Other Topics Concern ??? Parent/sibling w/ CABG, NV or angioplasty before 65F 55M? No Social [...] tablet by mouth daily Deann Pina APRN SWAGER OPERATOR naloxone (NARCAN) 4 MG/0.1ML nasal spray [place] 1 spray (4 mg) into one nostril [...] daily Dashawn Campos MD Anticoagulation noted: No GRINDER AND PLATER anticoagulation Physical Exam: Vitals: 07/06/21 1300 BP: [...] encounter Miscellaneous Notes Pharmacy - Antonella Zarate [facility] - 07/23/2021 3:55 PM CDT Images from the original note were not included. [facility], [facility] Parenteral ANtibiotic Review at Departure from Acute Care Collaborative Note Antimicrobial Stewardship Program - A joint venture between [facility] and [facility] to optimize antibiotic [...] was performed on 07/04. She transferred to [facility] on 07/06 for further management due [...] Recommendations/Additional Information: Please fax laboratory results to [facility] ([phone]), attn: Dr. Kobe Zarate, PharmD, BCIDP Pager: [phone] Vital Signs/Clinical Features: Vitals Report 07/23 0707/24 [...] goal(s). See goals on Care Plan in [facility] electronic health record for goal details. [...] vac, BSC, Walker, and pt belongings. Plan: [facility] at 1100 AM today 07/23/21 per [...] Equipment: IV pole/pump, and pt belongings. Plan: [facility] when a bed is available. Additional [...] goal(s). See goals on Care Plan in [facility] electronic health record for goal details. [...] - 07/19/2021 7:27 AM CDT Status Note [id number] Patient A&Ox4, able to make needs known, [...] reach. Pharmacy-Vancomycin Dosing Service - Iker Caldwell [facility] - 07/15/2021 7:40 AM CDT [...] 07/13/21 passing gas. Activity: Independent up to [facility] pivoting. Up for meals? Sitting up in [...] Note to Pharmacy: For [facility], [facility] and [facility]: For Zosyn-naive patients, use the Zosyn [...] verbal consent to Sintia Swain RN for [facility] staff to speak with mother So Parker [...] Info: Pharmacy-Vancomycin Dosing Service - Lurdes Sierra [facility] - 07/11/2021 10:11 AM CDT [...] but the predicted AUC was 459 @64%. [place] that since patient is younger with good [...] yet. Last BM: 07/06. Activity: Up to [facility] with assist of one. Skin: Incision/ wound [...] Tinoco MD - 07/07/2021 9:19 AM CDT [facility] Brief Operative Note Pre-operative diagnosis: Ankle abscess [...] a 40-year-old who was previously admitted to [facility] with sepsis and MSSA bacteremia secondary to a right lateral ankle abscess that tracked down to prior calcaneal hardware. She underwent 3 I&D's at [facility] prior to her transfer. Patient was transferred [...] 07/07/2021 7:00 PM UR OT WAITLIST [facility]OT [place] 07/08/2021 8:00 AM Carmencita Li Pt, PT [facility] [place] Nathaniel Tinoco MD Orthopaedic Surgery, PGY-4 Plan [...] monitor. Pharmacy-Admission Medication History - Suze Morales, [facility] - 07/06/2021 7:22 PM CDT Admission Medication History Completed by Pharmacy See [facility] Admission Navigator for allergy information, preferred outpatient pharmacy, prior to admission medications and immunization status. Medication History Sources: ??? Pharmacy fill history via [employer]ue[employer] ??? Current medication list from [facility] (pt admitted 06/28-07/06) ??? B[facility]DLER Changes made to [facility] medication list (reason): ??? 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 Deleted: coenzyme-Q, ibuprofen, multivitamin, omeprazole, ondansetron, Miralax, thiamine, vitamin B complex (old Rx, no fill history) ??? 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 Last prescribed dose of buprenorphine was 8 mg SL tid, however per addiction medicine visit notes pt was taking medication differently to make prescription last and using family member's supply at times. At [facility] she was receiving 4 mg SL every 4 hours. Per [place] [facility]: Buprenorphine 8 mg SL tablet filled 05/04/21, [...] Mckenzie naloxone (NARCAN) 4 MG/0.1ML nasal spray [place] 1 spray (4 mg) into one nostril [...] LDA: L side chest PICC. Placed at [facility]. Plan: Continue with care Additional Info: Plan [...] Wound Care Luis Camara DPM [address] [place] [address] (Wo rk) 01/21/2022 Office Visit Gastroenterology Juanis Mckenzie [address] [place] [address] Luis Fernando Miles MD [address] [facility] [address] [place] [address] documented as of this encounter [...] (ABNORMAL) CRP inflammation (07/23/2021 7:42 AM CDT) [facility] Mi[facility] Method Time Signature CRP Inflammation 8.2 (H) [...] City/State/ZIP Code Phon [place] [address] Care Lab [address] [facility], Room M309 (ABNORMAL) CBC with platelets and differential (07/21/2021 3:12 PM CDT) [facility] Method Time Signature WBC Count 4.4 4.0 [...] Number UR LABORATORY [place] [address] Care Lab [address] [facility], Room M309 Asymptomatic COVID-19 Virus (Coronavirus) [...] exposure or clinical presentation sugges ts COVID-19. ??[facility] are certified under the Clinical Laborat ory Improvement Amendments of 1988 (CLIA-88) as qualified to perform moderate and/or high complexity laboratory testing. Jaime Rae MD LAB - MICRO GENERAL ORDERABL ES Performing Organization Address City/State/ZIP Code Phon [place] [address] Care Lab [address] [facility], Room M309 (ABNORMAL) CRP inflammation (07/19/2021 8:19 AM CDT) [facility] Method Time Signature CRP Inflammation 15.0 (H) [...] City/State/ZIP Code Phon e Number UR LABORATORY [facility] [place] [address] Care Lab [address] [facility], Room M309 (ABNORMAL) CBC with platelets (07/19/2021 8:19 AM CDT) [facility] Method Time Signature WBC Count 4.9 4.0 [...] City/State/ZIP Code Phon [place] [address] [address] [place] [address], Room M309 Extra Purple Top Tube (07/18/2021 7:51 AM CDT) P athologist Signature Hold Specimen JIC 07/18/2021 UR LABORATORY 9:04 AM CDT Specimen Anatomical Collection Method / Collection Time Recei isak Time (Source) Location / Volume Laterality Blood BLOOD SPECIMEN / Venipuncture / 07/18/2021 7:51 2021 7:51 Unknown Unknown AM CDT AM CDT Jaime Rae MD LAB - BLOOD ORDERABLES Performing Organization Address City/[facility]/ZIP Code Phon [place] [address] [address] [place] [address], Room M309 (ABNORMAL) CRP inflammation (07/18/2021 7:37 [...] City/State/ZIP Code Ph[place] [address] [address] [place] [address], Room M309 XR Chest 1 View (07/17/2021 [...] exposure or clinical presentation sugges ts COVID-19. ??[facility] [email or web address] are certified under the Clinical Laborat ory Improvement Amendments of 1988 (CLIA-88) as qualified to perform moderate and/or high complexity laboratory testing. Jaime Rae MD LAB - MICRO GENERAL ORDERABL ES Performing Organization Address City/State/ZIP Code Phon [place] [phone] Care Lab [address] [facility], Room M309 (ABNORMAL) CBC with platelets and differential (07/17/2021 7:36 AM CDT) [facility] gist Method Time Signature WBC Count [...] City/State/ZIP Code Phon [place] [address] Care Lab [address] [facility], Room M309 (ABNORMAL) Comprehensive metabolic panel (07/17/2021 7:36 AM CDT) [facility] Method Time Signature Sodium 139 133 - [...] equation which includ es age and gender ([employer] et al., NEJ, DOI: 10.1056/PQCYde8322937) Specimen Anatomical Collection Method / Collection Time Recei isak Time (Source) Location / Volume Laterality Blood STRUCTURE OF RIGHT Venipuncture / 07/17/2021 7:36 05/3 02/2021 8:08 HAND / Unknown Unknown AM CDT AM CDT Jensen Ulloa MD LAB - BLOOD ORDERABLES Performing Organization Address City/State/ZIP Code Ph[place] [address] Care Lab [address] [facility], Room M309 (ABNORMAL) CRP inflammation (07/16/2021 9:08 [...] City/State/ZIP Code Ph[place] [address] Care Lab [address] [facility], Room M309 Creatinine (07/16/2021 8:23 AM CDT) P athologist Signature Creatinine 0.66 0.52 - 1.04 07/16/2021 UR LABORATORY mg/dL 9:01 AM CDT GFR Estimate >90 >60 07/16/2021 UR LABORATORY mL/min/1.73 9:01 AM CDT m2 Comment: Effective February 06, 2021 eGF Rcr in adults is calculated using the 2020 CKD-EPI creatinine equation which includ es age and gender (Paul solis al., [employer] [facility] [facility], DOI: 10.1056/TTZExu2311554) Specimen Anatomical Collection Method / Collection Time Recei isak Time (Source) Location / Volume Laterality Blood STRUCTURE OF RIGHT Venipuncture / 07/16/2021 8:23 05/3 8:31 HAND / Unknown Unknown AM CDT AM CDT Jaime Rae MD LAB - BLOOD ORDERABLES Performing Organization Address City/[facility]/ZIP Code Phon [place] [address] [place] [address], Room M309 Extra Purple Top Tube (07/15/2021 [...] LAB - BLOOD ORDERABLES Performing Organization Address City/[facility] Phon [place] [address] [place] [address], Room M309 Creatinine (07/15/2021 6:09 AM CDT) athologist Signature Creatinine 0.64 0.52 - 1.04 07/15/2021 UR LABORATORY mg/dL 7:06 AM CDT GFR Estimate >90 >60 07/15/2021 UR LABORATORY mL/min/1.73 7:06 AM CDT m2 Comment: Effective February 06, 2021 eGF Rcr in adults is calculated using the 2020 CKD-EPI creatinine equation which includ es age and gender (Paul et al., NEJM, DOI: 10.1056/TJCKkm7305177) Specimen Anatomical Collection Method / Collection Time Recei isak Time (Source) Location / Volume Laterality Blood STRUCTURE OF LEFT Venipuncture / 07/15/2021 6:09 07/15 6:14 HAND / Unknown Unknown AM CDT AM CDT Jaime Rae MD LAB - BLOOD ORDERABLES Performing Organization Address City/[facility]/ZIP [facility] Phon [place] [address] [address] [place] [address], Room M309 Vancomycin level (07/15/2021 6:09 AM CDT) athologist Signature Vancomycin 20.6 mg/L 07/15/2021 7:07 UR LABORATORY AM CDT Specimen Anatomical Collection Method / Collection Time Recei isak Time (Source) Location / Volume Laterality Blood STRUCTURE OF LEFT Venipuncture / 07/15/2021 6:09 07/15 6:14 HAND / Unknown Unknown AM CDT AM CDT Jaime Rae MD LAB - BLOOD ORDERABLES Performing Organization Address City/[facility] Phon [place] [address] [address] [place] [address], Room M309 Creatinine (07/14/2021 5:30 AM CDT) athologist Signature Creatinine 0.62 0.52 - 1.04 07/14/2021 UR LABORATORY mg/dL 6:20 AM CDT GFR Estimate >90 >60 07/14/2021 UR LABORATORY mL/min/1.73 6:20 AM CDT m2 Comment: Effective February 06, 2021 eGF Rcr in adults is calculated using the 2020 CKD-EPI creatinine equation which includ es age and gender (Paul et al., [employer] [facility], DOI: 10.1056/AKCUzr1887342) Specimen Anatomical Collection Method / Collection Time Recei isak Time (Source) Location / Volume Laterality Blood STRUCTURE OF RIGHT Venipuncture / 07/14/2021 5:30 05/2 09/2021 5:52 UPPER LIMB / Unknown AM CDT AM CDT Unknown Jaime Rae MD LAB - BLOOD ORDERABLES Performing Organization Address City/State/ZIP [facility] Phon [place] [address] [address] [place] [address], Room M309 (ABNORMAL) CBC with platelets (07/14/2021 5:30 AM CDT) [facility] gist Method Time Signature WBC Count [...] City/State/ZIP Code Phon [place] [address] Care Lab [address] [facility], Room M309 (ABNORMAL) CRP inflammation (07/14/2021 5:30 AM CDT) [facility] Method Time Signature CRP Inflammation [...] City/State/ZIP Code Phon e Number UR LABORATORY [facility] [place] [address] Care Lab [address] [facility], Room M309 XR Chest 1 View [...] platelets and differential (07/13/2021 5:40 AM CDT) [facility] Method Time Signature WBC Count 4.9 4.0 [...] City/State/ZIP Code Phon e Number UR LABORATORY [facility] [place] [address] Care Lab [address] [facility], Room M309 (ABNORMAL) Comprehensive metabolic panel (07/13/2021 5:40 AM CDT) [facility] Method Time Signature Sodium 139 133 - [...] and gender (Paul et al., NE, DOI: 10.1056/[id number]) Specimen Anatomical Collection Method / Collection Time Recei isak Time (Source) Location / Volume Laterality Blood STRUCTURE OF RIGHT Venipuncture / 07/13/2021 5:40 05/08/2021 5:55 HAND / Unknown Unknown AM CDT AM CDT Jensen Ulloa MD LAB - BLOOD ORDERABLES Performing Organization Address City/State/ZIP Code Phon [place] [address] Care Lab [address] [place] [address], Room M309 Vancomycin level (07/13/2021 5:40 AM [...] City/State/ZIP Code Ph[place] [address] [place] [address], Room M309 Blood Culture Line, venous (07/12/2021 [...] Code Phon e Number UU IDD LABORATORY [facility] [place] [place] [address] Diag. Lab [address] [facility], Room D297 Blood Culture Arm, Right (07/12/2021 [...] MICRO GENERAL ORDERABL ES Performing Organization Address City/[facility]/ZIP Code Phon e Number UU IDD LABORATORY [facility] [place] [place] [address] Diag. Lab [address] [facility], Room D297 (ABNORMAL) CRP inflammation (07/12/2021 6:57 [...] City/State/ZIP Code Phon e Number UR LABORATORY [facility] [place] [address] Care Lab [address] [facility], Room M309 (ABNORMAL) CBC with platelets [...] City/State/ZIP Code Phon [place] [address] Care Lab [address] [facility], Room M309 Creatinine (07/12/2021 6:57 AM CDT) P athologist Signature Creatinine 0.57 0.52 - 1.04 07/12/2021 UR LABORATORY mg/dL 7:35 AM CDT GFR Estimate >90 >60 07/12/2021 UR LABORATORY mL/min/1.73 7:35 AM CDT m2 Comment: Effective February 06, 2021 eGF Rcr in adults is calculated using the 2020 CKD-EPI creatinine equation which includ es age and gender (Paul et al., [employer] [facility] [facility], DOI: 10.1056/CDKSyn4696833) Specimen Anatomical Collection Method / Collection Time Recei isak Time (Source) Location / Volume Laterality Blood STRUCTURE OF RIGHT Venipuncture / 07/12/2021 6:57 05/2 07/2021 7:04 UPPER LIMB / Unknown AM CDT AM CDT Unknown Jaime Rae MD LAB - BLOOD ORDERABLES Performing Organization Address City/State/ZIP Code Phon e Number UR LABORATORY [facility] [place] [address] Care Lab [address] [facility], Room M309 Fungal or Yeast Culture [...] Code Phon e Number UU IDD LABORATORY [facility] [place] [place] [address] Diag. Lab [address] [facility], Room D297 Wound Aerobic Bacterial Culture Routine [...] MICRO GENERAL ORDER JEFFERY Performing Organization Address City/[facility]/ZIP Code Phon e Number UU IDD LABORATORY [facility] [place] [place] [address] Diag. Lab [address] [facility], Room D297 (ABNORMAL) Anaerobic Bacterial Culture Routine (07/11/2021 6:18 PM CDT) [facility] gist Method Time Signature Culture No [...] MICRO GENERAL ORDER JEFFERY Performing Organization Address City/[facility]/ZIP Code Phon e Number UU IDD LABORATORY [facility] [place] [address] Diag. Lab [address] [facility], Room D297 Extra Purple Top Tube (07/11/2021 [...] City/State/ZIP Code Phon e Number UR LABORATORY [facility] [place] [address] Care Lab [address] [facility], Room M309 Creatinine (07/11/2021 9:09 AM CDT) athologist Signature Creatinine 0.58 0.52 - 1.04 07/11/2021 UR LABORATORY mg/dL 9:35 AM CDT GFR Estimate >90 >60 07/11/2021 UR LABORATORY mL/min/1.73 9:35 AM CDT m2 Comment: Effective February 06, 2021 eGF Rcr in adults is calculated using the 2020 CKD-EPI creatinine equation which includ es age and gender (Paul et al., NEJ, DOI: 10.1056/[id number]) Specimen Anatomical Collection Method / Collection Time Recei isak Time (Source) Location / Volume Laterality Blood STRUCTURE OF RIGHT Venipuncture / 07/11/2021 9:09 05/2 06/2021 9:16 UPPER LIMB / Unknown AM CDT AM CDT Unknown Jaime Rae MD LAB - BLOOD ORDERABLES Performing Organization Address City/State/ZIP Code Phon [place] [address] Care Lab [address] [facility], Room M309 (ABNORMAL) CBC with platelets and differential (07/10/2021 7:26 AM CDT) [facility] gist Method Time Signature WBC Count [...] City/State/ZIP Code Phon e Number UR LABORATORY [facility] [place] [address] Care Lab [address] [facility], Room M309 (ABNORMAL) CRP inflammation (07/10/2021 7:26 AM CDT) [facility] Method Time Signature CRP Inflammation 59.0 (H) 0.0 - 8.0 07/10/2021 UR LABORATOR Y mg/L 8:08 AM CDT Specimen Anatomical Collection Method / Collection Time Recei isak Time (Source) Location / Volume Laterality Blood STRUCTURE OF LEFT Venipuncture / 07/10/2021 7:26 07/10 7:49 HAND / Unknown Unknown AM CDT AM CDT Jensen Ulloa MD LAB - BLOOD ORDERABLES Performing Organization Address City/[facility] Phon [place] [address] Care Lab [address] [place] [address], Room M309 (ABNORMAL) CRP inflammation (07/10/2021 5:25 AM CDT) [facility] Method Time Signature CRP Inflammation 60.0 (H) 0.0 - 8.0 07/10/2021 UR LABORATOR Y mg/L 6:50 AM CDT Specimen Anatomical Collection Method / Collection Time Recei isak Time (Source) Location / Volume Laterality Blood STRUCTURE OF RIGHT Venipuncture / 07/10/2021 5:25 05/2 05/2021 6:17 UPPER LIMB / Unknown AM CDT AM CDT Unknown Jaime Rae MD LAB - BLOOD ORDERABLES Performing Organization Address City/[facility] Phon [place] [address] [address] [place] [address], Room M309 (ABNORMAL) CBC with platelets (07/10/2021 5:25 AM CDT) [facility] Method Time Signature WBC Count 8.2 4.0 [...] City/State/ZIP Code Phon [place] [address] Care Lab [address] [facility], Room M309 (ABNORMAL) UA with Microscopic reflex to Culture (07/09/2021 5:33 PM CDT) [facility] Method Time Signature Color Urine Yellow Colorless, 07/09/2021 UR LABORATORY Straw, 7:00 PM CDT Light Yellow, Yellow Appearance Urine Clear Clear 07/09/2021 UR LABORATOR Y 7:00 PM CDT Glucose Urine Negative Negative 07/09/2021 UR LABORATORY mg/dL 7:00 PM CDT Bilirubin Urine Negative Negative 07/09/2021 UR LABORATORY 7:00 PM CDT Ketones Urine Negative Negative 07/09/2021 UR LABORATORY mg/dL 7:00 PM CDT Specific [place] 1.018 1.003 - 07/09/2021 UR LABORATOR Y [...] City/State/ZIP Code Phon e Number UR LABORATORY [facility] [place] [address] Care Lab [address] [facility], Room M309 Blood Culture Arm, Right [...] Code Phon e Number UU IDD LABORATORY [facility] [place] [place] [phone] Diag. Lab [address] [facility], Room D297 Blood Culture Arm, Left (07/09/2021 12:22 PM CDT) P athologist Signature Culture No Growth 07/14/2021 UU IDD 2:04 PM CDT LABORATORY Specimen Anatomical Collection Method Collection Time Receive d Time (Source) Location / / Volume Laterality Blood STRUCTURE OF LEFT VAD(CVC, PICC) / 07/09/2021 12:22 UPPER LIMB / Unknown PM CDT 12:58 PM CDT Unknown Jaime Rea MD LAB - MICRO GENERAL ORDERABL ES Performing Organization Address City/State/ZIP Code Phon e Number UU IDD LABORATORY [facility] [place] [address] Diag. Lab [address] [facility], Room D297 (ABNORMAL) CRP inflammation (07/09/2021 12:22 [...] LAB - BLOOD ORDERABLES Performing Organization Address City/[facility]/ZIP Code Phon [place] [address] Care Lab [address] [facility], Room M309 ALT (07/09/2021 12:22 PM [...] City/State/ZIP Code Phon [place] [address] Care Lab [address] [facility], Room M309 (ABNORMAL) Basic metabolic panel [...] and gender (Paul et al., NEJM, DOI: 10.1056/[id number]) Specimen Anatomical Collection Method Collection Time Receive d Time (Source) Location / / Volume Laterality Blood STRUCTURE OF LEFT VAD(CVC, PICC) / 07/09/2021 12:22 UPPER LIMB / Unknown PM CDT 12:30 PM CDT Unknown Jaime Rae MD LAB - BLOOD ORDERABLES Performing Organization Address City/State/ZIP Code Phon [place] [address] Care Lab [address] [facility], Room M309 (ABNORMAL) CBC with platelets [...] City/State/ZIP Code Phon e Number UR LABORATORY [place] [address] Care Lab [address] [facility], Room M309 ECHO COMPLETE (07/08/2021 1:04 PM CDT) P athologist Signature LVEF 55-60% CARDIOLOGY RESULTS Anatomical Region Laterality Modality Echocardiography Specimen (Source) Anatomical Collection Method Collection Time Re ceived Time Location / / Volume Laterality 07/08/2021 12:07 PM CDT Narrative 07/08/2021 2:15 PM CDT [id number]^BUTCH^JAIME [facility],F [facility] Echocardiography Laboratory [address] [place] [address] Name: DEANN KING : 1980 Study Date: 07/08/2021 12:07 PM Age: 40 yrs Gender: Female Patient Location: [facility] Reason For Study: Endocarditis Ordering Physician: JAIME [...] Procedure Note Matheus Jo MD - 07/08/2021 [id number]^BUTCH^JAIME [facility] Echocardiography Laboratory [address] [place] [address] Name: DEANN KING : 1980 Study Date: 07/08/2021 12:07 PM Age: 40 yrs Gender: Female Patient Location: [facility] Reason For Study: Endocarditis Ordering Physician: JAIME [...] Doppler Measurements & Calculations MV E max yobain: 84.4 cm/sec MV A max yobani: 47.4 cm/sec MV E/A: 1.8 TR max yobani: 232.0 cm/sec TR max P.5 mmHg E/E' av.0 Lateral E/e': 6.3 Medial E/e': 9.6 Report approved by: Abdifatah Martinez 02:15 PM Jaime Rae MD CV ECHO ORDERABLES (ABNORMAL) CBC with platelets (07/08/2021 7:14 AM CDT) [facility] Method Time Signature WBC Count 7.0 4.0 [...] LAB - BLOOD ORDERABLES Performing Organization Address City/[facility]/ZIP [facility] Phon [place] [address] [address] [place] [address], Room M309 (ABNORMAL) Erythrocyte sedimentation rate auto [...] LAB - BLOOD ORDERABLES Performing Organization Address City/[facility]/ZIP Code Phon [place] [address] Care Lab [address] [place] [address] Room [facility] (ABNORMAL) CRP inflammation (07/08/2021 7:14 AM CDT) [...] LAB - BLOOD ORDERABLES Performing Organization Address City/[facility]/ZIP [facility] Phon e [place] [address] [address] [place] [address], Room M309 US Abdomen Complete (07/07/2021 3:33 [...] Code Phon e Number UU IDD LABORATORY [facility] [place] [address] Diag. Lab [address] [facility], Room D297 Blood Culture Line, venous (07/07/2021 [...] MICRO GENERAL ORDERABL ES Performing Organization Address City/[facility]/ZIP Code Phon e Number [facility] IDD LABORATORY [facility] [place] [place] [address] Diag. Lab 500 [facility], Room D297 (ABNORMAL) Phosphorus (07/07/2021 12:35 PM [...] LAB - BLOOD ORDERABLES Performing Organization Address City/[facility]/ZIP Code Phon [place] [address] Care Lab [address] [place] [address], Room M309 Magnesium (07/07/2021 12:35 PM CDT) athologist Signature Magnesium 2.1 1.6 - 2.3 07/07/2021 UR LABORATORY mg/dL 2:13 PM CDT Specimen Anatomical Collection Method Collection Time Receive d Time (Source) Location / / Volume Laterality Blood VENOUS LINE / VAD(CVC, PICC) / 07/07/2021 12:35 2021 1:01 Unknown Unknown PM CDT PM CDT Nathaniel Tinoco MD LAB - BLOOD ORDERABLES Performing Organization Address City/[facility]/ZIP Code Phon [place] [address] Care Lab 24[address] [facility], Room M309 (ABNORMAL) CBC with platelets (07/07/2021 12:35 PM CDT) [facility] Method Time Signature WBC Count 8.6 4.0 [...] City/State/ZIP Code Phon e Number UR LABORATORY [place] [address] Care Lab 24[address] [facility], Room M309 (ABNORMAL) Comprehensive metabolic panel (07/07/2021 12:35 PM CDT) [facility] Method Time Signature Sodium 137 133 - [...] and gender (Paul et al., NEJM, DOI: [id number]/[id number]) Specimen Anatomical Collection Method Collection Time Receive d Time (Source) Location / / Volume Laterality Blood VENOUS LINE / VAD(CVC, PICC) / 07/07/2021 12:35 2021 1:01 Unknown Unknown PM CDT PM CDT Nathaniel Tinoco MD LAB - BLOOD ORDERABLES Performing Organization Address City/State/ZIP Code Phon e Number UR LABORATORY [facility] [place] [address] Care Lab 2450 [facility], Room M309 (ABNORMAL) Tissue Aerobic Bacterial Culture Routine (07/07/2021 8:43 AM CDT) [facility] Method Time Signature Culture 1+ Staphylococcus GINETTE [...] Susceptibility testing requested by Dr. Fraga Pager [phone]. This specimen was received on a swab. [...] Code Phon e Number [facility] IDD LABORATORY [facility] [place] [address] Diag. Lab 500 [facility], Room D297 Anaerobic Bacterial Culture Routine (07/07/2021 8:43 AM CDT) [facility] Method Time Signature Culture No anaerobic [...] MICRO GENERAL ORDER JEFFERY Performing Organization Address City/[facility] Phon e Number UU IDD LABORATORY [facility] [place] [address] Diag. Lab 500 [facility], Room D297 Tissue Aerobic Bacterial Culture Routine [...] MICRO GENERAL ORDER JEFFERY Performing Organization Address City/State/[facility] Phon e Number UU IDD LABORATORY [facility] [place] [address] Diag. Lab 500 [facility], Room D297 Anaerobic Bacterial Culture Routine (07/07/2021 8:42 AM CDT) [facility] Method Time Signature Culture No anaerobic [...] MICRO GENERAL ORDER JEFFERY Performing Organization Address City/[facility] Phon e Number UU IDD LABORATORY [facility] [place] [address] Diag. Lab 500 [facility], Room D297 Wound Aerobic Bacterial Culture Routine [...] MICRO GENERAL ORDER JEFFERY Performing Organization Address City/[facility] Phon e Number UU IDD LABORATORY [facility] [place] [address] Diag. Lab 500 [facility], Room D297 Anaerobic Bacterial Culture Routine (07/07/2021 [...] Code Phon e Number [facility] IDD LABORATORY [facility] [place] [address] Diag. Lab 500 [facility], Room D297 Asymptomatic COVID-19 Virus (Coronavirus) by [...] exposure or clinical presentation sugges ts COVID-19. ??[facility] [email or web address] are certified under the Clinical Laborat ory Improvement Amendments of 1988 (CLIA-88) as qualified to perform moderate and/or high complexity laboratory testing. Will Mauricio VÁSQUEZ LAB - MICRO GENERAL ORDERABL ES Performing Organization Address City/State/ZIP Code Phon [place] [phone] Care Lab 2450 [facility], Room M309 Blood Culture Arm, Left [...] MICRO GENERAL ORDERABL ES Performing Organization Address City/[facility]/ZIP Code Phon e Number UU IDD LABORATORY [facility] [place] [address] Diag. Lab 500 [facility], Room D297 (ABNORMAL) Iron and iron binding [...] LAB - BLOOD ORDERABLES Performing Organization Address City/[facility]/ZIP Code Phon [place] [phone] Care Lab 24[address] [facility], Room M309 (ABNORMAL) Hepatitis C RNA, Quantitative by PCR (07/06/2021 3:34 PM CDT) [facility] Method Time Signature Hepatitis C RNA 130,453 [...] Code Phon e Number UU IDD LABORATORY [facility] [place] [phone] Diag. Lab 500 [facility], Room D297 Adult Type and Screen (07/06/2021 3:34 PM CDT) [facility] Method Time Signature ABO/RH(D) B POS 07/06/2021 UR BLOOD 2:15 PM CDT BANK Antibody Negative Negative 07/06/2021 UR BLOOD Screen 2:15 PM CDT BANK SPECIMEN [id number] 07/06/2021 UR BLOOD EXPIRATION 2:15 PM CDT BANK DATE Specimen Anatomical Collection Method / Collection Time Recei isak Time (Source) Location / Volume Laterality Blood STRUCTURE OF RIGHT Venipuncture / 07/06/2021 3:34 05/2 4:06 UPPER LIMB / Unknown PM CDT PM CDT Unknown Jah Thompson MD LAB - BLOOD BANK TEST ORDER Performing Organization Address City/State/ZIP Code Phon e Number UR BLOOD BANK [place] [address] Components Lab 24[address] [facility], Room M301 (ABNORMAL) Hepatic panel (07/06/2021 [...] PM CDT PM CDT Unknown Rossana Odell [facility] LAB - BLOOD ORDERABLES Performing Organization Address City/State/ZIP Code Phon e Number UR LABORATORY [place] [address] Care Lab 24[address] [facility], Room M309 Blood Culture Arm, Right [...] Code Phon e Number UU IDD LABORATORY [facility] [place] [address] Diag. Lab [address] [facility], Room D297 Partial thromboplastin time (07/06/2021 3:34 [...] LAB - BLOOD ORDERABLES Performing Organization Address City/[facility]/ZIP Code Phon [place] [address] Care Lab 24[address] [facility], Room M309 (ABNORMAL) INR (07/06/2021 3:34 PM CDT) P athologist Signature INR 1.39 (H) 0.85 - 1.15 07/06/2021 UR LABORATORY 4:23 PM CDT Comment: Some International Normalized R atio (INR) results performed at the [facility] Acute Care Lab for patients 6 [...] City/State/ZIP Code Phon [place] [address] [address] [place] [address], Room M309 (ABNORMAL) Erythrocyte sedimentation rate auto (07/06/2021 3:34 PM CDT) [facility] Method Time Signature Erythrocyte 97 (H) 0 [...] City/State/ZIP Code Phon [place] [address] [place] [address], Room M309 (ABNORMAL) CRP inflammation (07/06/2021 3:34 PM CDT) [facility] Method Time Signature CRP Inflammation 65.0 (H) [...] City/State/ZIP Code Phon [place] [address] Care Lab [address] [place] [address], Room M309 (ABNORMAL) Basic metabolic panel (07/06/2021 3:34 PM CDT) [facility] Method Time Signature Sodium 136 133 - [...] and gender (Paul et al., NEJM, DOI: [id number]) Specimen Anatomical Collection Method / Collection Time Recei isak Time (Source) Location / Volume Laterality Blood STRUCTURE OF RIGHT Venipuncture / 07/06/2021 3:34 / 4:06 UPPER LIMB / Unknown PM CDT PM CDT Unknown Jah Thompson MD LAB - BLOOD ORDERABLES Performing Organization Address City/State/ZIP Code Phon [place] [address] Care Lab 24[address] [facility], Room M309 (ABNORMAL) CBC with platelets (07/06/2021 3:34 PM CDT) [facility] gist Method Time Signature WBC Count [...] City/State/ZIP Code Phon [place] [address] Care Lab 24[address] [facility], Room M309 documented in this encounter [...] or analgesic side effects. Hold while on VISUAL EDUCATOR or with regular IV opioid dosing. Given [...] r: Vin Sims, GENARO)2000 (Given - Provider: Alisa Ceja RN) 829 (Given - Provider: Areli Schwartz RN)1928 (Given - Provider: Yani Preciado, GENARO) 08 (Given - Provider: Andrzej Hodge RN) 20 mg, Oral, 2 TIMES DAILY, First dose on Fri07/06/21 at 1999 fexofenadine (SRAVATNHI) tablet 180 mg 2000 (Given - Provider: [...] Areli Schwartz, GENARO)1951 (Given - Provider: Yani Perciado RN) 25-50 mg, Oral, EVERY 6 HOURS [...] leora lgesic side effects. Hold while on VISUAL EDUCATOR or with regular IV opioid dosing. polyethylene [...] mL 10-40 mL, Intracatheter, EVERY 1 HOUR AR N, other, to lock EACH CVC - [...] as of this encounter Care Teams Medical Surgery Nurse Relationship Specialty Start Date End Date Juanis Mckenzie PCP - General Addiction Medicine 06/29/21 [facility] [place] [address] Deann Pina APRN SWAGER OPERATOR Assigned PCP 02/25/[address] [place] [address] documented as of this encounter
--- OUTSIDE RECORDS SUMMARY | 2021-12-05 19:21 | XMS_ITS | Encounter Summary ---
:1980 Author Organization [place] Address [address] [facility] [place] [address] Care Team Providers Name Role Phone Clinic, [facility] Primary Care Provide r Stephani Pina MOBILE ENGINEER [employer] CHEMISTRY TEACHER Unavailable Encounter Details Date Type Department Care Team Description 03/12/2021 Office Visit [facility] Edgar Alfredo us e disorder, Clinic Ashly Gauthier MD severe, in sustained [address] [place] remission, on [address] maintenance therapy [place], [place] (H) (Prim jaime Dx) [address] Social History Tobacco Use Types Packs/Day Years Used Date Smoking Tobacco: Every Day Cigarettes 0.3 10 Smokeless Tobacco: Never Comments: 5-8 cigarettes a day Alcohol Use Standard Drinks/Week Comments Not Currently 0 (1 standard drink = 0.6 oz pure alcoho l) sober since 08/2020 Sex Assigned at Date Recorded Female 01/14/2020 10:57 AM SUPERVISOR CUSTOMER COMPLAINT SERVICE COVID-19 Exposure Response Date Recorded In the last month, have you been in contact with No / Unsure 03/05/2021 9:18 AM SUPERVISOR CUSTOMER COMPLAINT SERVICE someone who was confirmed or suspected to have Coronavirus / COVID-19? documented as of this encounter Progress Notes Edgar Alfredo MD - 03/12/2021 9:20 AM CST NO SHOW RVISOR CUSTOMER COMPLAINT SERVICE documented in this encounter Plan of Treatment Upcoming Encounters Date Type Specialty Care Team Description 12/20/2021 Office Visit Wound Care Hoa Luislaurel Burnett, DPM [address] [facility] [address] [place], [place] [id number] (Wo rk) 01/21/2022 Office Visit Gastroenterology Juanis Levi [address]50 [place] [address] Luis Fernando Miles MD [address] [facility] [address] [place], [place] [address] documented as of this encounter Visit Diagnoses Diagnosis Opioid use disorder, severe, in sustaine d remission, on maintenance therapy (H) - Primary documented in this encounter Additional Health Concerns Assessment Noted Time PHQ-9 Depression Total Score: 2 12/15/2020 1:07 PM CDT documented as of this encounter Care Teams Solution Lead Relationship Specialty Start Date End Date Clinic, [facility] PCP - General 01/20/18 06/28/[address] [place] [id number] Stephani Pina APRN HIGH SCHOOL CHEMISTRY TEACHER Assigned PCP 02/25/21 [address] [place] [address] [place], [place] [address] documented as of this encounter
--- OUTSIDE RECORDS SUMMARY | 2021-12-05 19:21 | XMS_ITS | Encounter Summary ---
:1980 Author Organization [place] Address [address] [facility] [place] [address] Care Team Providers Name Role Phone Clinic, [facility] Primary Care Provide r Stephani Pina Kim LEON TABULATING CLERK Unavailable Encounter Details Date Type Department Care [...] at Date Recorded Female 01/14/2020 10:57 AM CHEMICAL MILLING PROCESSOR COVID-19 Exposure Response Date Recorded In the last month, have you been in contact with No / Unsure 12/08/2020 10:54 AM CDT someone who was confirmed or suspected to have Coronavirus / COVID-19? documented as of this encounter Plan of Treatment Upcoming Encounters Date Type Specialty Care Team Description 12/20/2021 Office Visit Wound Care Luis Camara DPM [address]09 [place] [address] (Wo rk) 01/21/2022 Office Visit Gastroenterology Juanis Levi 2450 [place] [phone] Luis Fernando Miles MD [address] [facility] [address] [place], [place] [address] documented as of this encounter Visit Diagnoses Not on filedocumented in this encounter Additional Health Concerns Assessment Noted Time PHQ-9 Depression Total Score: 6 12/27/2019 9:38 AM CHEMICAL MILLING PROCESSOR documented as of this encounter Care Teams Volunteer Services Manager Relationship Specialty Start Date End Date Clinic, [facility] PCP - General 01/20/18 06/28/21 4[address] [place] [address] Stephani Pina APRN TABULATING CLERK Assigned PCP 01/30/20 12/30/20 [facility] 700 [place], [place] [address] documented as of this encounter
--- OUTSIDE RECORDS SUMMARY | 2021-12-05 19:21 | XMS_ITS | Encounter Summary ---
:1980 Author Organization [place] Address [address] [facility] [place] [address] Care Team Providers Name Role Phone Clinic, [facility] Primary Care Provide r Guerita Haasdia Sanju NURSE TRANSITIONAL LITHOPONE MILL WORKER Unavailable [phone] Reason for Visit Reason Onset Date Comments Medication Request 02/12/2021 subutex Encounter Details Date Type Department Care Team Description 02/12/2021 Telephone [facility] Edgar Alfredo, [facility] ication Request Clinic Ashly VÁSQUEZ (subutex) [address] [place] [address] [place] [address] (Wo rk) Social History Tobacco Use Types Packs/Day Years Used Date Smoking Tobacco: Every Day Cigarettes 0.3 10 Smokeless Tobacco: Never Comments: 5-8 cigarettes a day Alcohol Use Standard Drinks/Week Comments Not Currently 0 (1 standard drink = 0.6 oz pure alcoho l) sober since 08/2020 Sex Assigned at Date Recorded Female 01/14/2020 10:57 AM COMPOSITION FLOOR SETTER COVID-19 Exposure Response Date Recorded In the last month, have you been in contact with No / Unsure 01/15/2021 1:15 PM COMPOSITION FLOOR SETTER someone who was confirmed or suspected to have Coronavirus / COVID-19? documented as of this encounter Miscellaneous Notes Telephone Encounter - Juanjose Parham - 02/12/2021 12:44 PM CST Reason for Call: Medication Request due to: missed appointment Name of the pharmacy and phone number for the current request: [id number] [place] -[address] [address] Request for bridge of: Subutex [...] Phone number patient can be reached at: [phone] Best Time: Any OSITION FLOOR SETTER documented in this encounter Plan of Treatment Upcoming Encounters Date Type Specialty Care Team Description 12/20/2021 Office Visit Wound Care Luis Camara DPM 909 [place] [address] (Wo rk) 01/21/2022 Office Visit Gastroenterology Juanis Levi 2450 [place] [phone] Luis Fernando Miels MD [address] [address] documented as of this encounter Visit Diagnoses Diagnosis Opioid use disorder, severe, in sustaine d remission, on maintenance therapy (H) documented in this encounter Additional Health Concerns Assessment Noted Time PHQ-9 Depression Total Score: 2 12/15/2020 1:07 PM CDT documented as of this encounter Care Teams Customer Support Executive Relationship Specialty Start Date End Date Clinic, [facility] PCP - General 01/20/18 06/28/21 [address] [place] [address] Tatyana Haas APRN LITHOPONE MILL WORKER Assigned PCP 12/31/20 02/24/21 [facility] [address] [facility] [address] [place], [place] [address] documented as of this encounter
--- OUTSIDE RECORDS SUMMARY | 2021-12-05 19:21 | XMS_ITS | Encounter Summary ---
:1980 Author Organization [place] Address [address] [facility] [place] [address] Care Team Providers Name Role Phone Clinic, [facility] Primary Care Provide r Stephani Pina Kim LEON PATIENTS TRANSPORTER Unavailable [phone] Encounter Details Date Type Department Care [...] at Date Recorded Female 01/14/2020 10:57 AM APPLICATION SUPPORT TECHNICIAN COVID-19 Exposure Response Date Recorded In the last month, have you been in contact with No / Unsure 02/28/2020 9:23 AM APPLICATION SUPPORT TECHNICIAN someone who was confirmed or suspected to have Coronavirus / COVID-19? documented as of this encounter Plan of Treatment Upcoming Encounters Date Type Specialty Care Team Description 12/20/2021 Office Visit Wound Care Luis Camara DPM [address] [place] [address] (Wo rk) 01/21/2022 Office Visit Gastroenterology Juanis Levi 2450 [place] [phone] Luis Fernando Miles MD [address] [facility] [address] [place], [place] [address] documented as of this encounter Visit Diagnoses Not on filedocumented in this encounter Additional Health Concerns Assessment Noted Time PHQ-9 Depression Total Score: 6 12/27/2019 9:38 AM APPLICATION SUPPORT TECHNICIAN documented as of this encounter Care Teams Handle And Vent Machine Operator Relationship Specialty Start Date End Date Clinic, [facility] PCP - General 01/20/18 06/28/21 [address] [place] [address] Stephani Pina APRN PATIENTS TRANSPORTER Assigned PCP 01/30/20 12/30/20 [facility] [address] [place], [place] [address] documented as of this encounter
--- OUTSIDE RECORDS SUMMARY | 2021-12-05 19:21 | XMS_ITS | Encounter Summary ---
:1980 Author Organization [place] Address [address] [facility] [place] [address] Care Team Providers Name Role Phone Clinic, [facility] Primary Care Provide r Stephani Pina Kim LEON DRUG ENFORCEMENT AGENT Unavailable [phone] Encounter Details Date Type Department Care [...] Date Recorded Female 01/14/2020 10:57 AM MEDICAL PATHOLOGY TEACHER COVID-19 Exposure Response Date Recorded In the last month, have you been in contact with No / Unsure 03/27/2020 9:20 AM MEDICAL PATHOLOGY TEACHER someone who was confirmed or suspected to have Coronavirus / COVID-19? documented as of this encounter Plan of Treatment Upcoming Encounters Date Type Specialty Care Team Description 12/20/2021 Office Visit Wound Care Luis Camara DPM 909 [place] [address] (Wo rk) 01/21/2022 Office Visit Gastroenterology Juanis Levi [address]50 [place] [phone] Luis Fernando Miles MD [address] [facility] [address] [place], [place] [address] documented as of this encounter Visit Diagnoses Not on filedocumented in this encounter Additional Health Concerns Assessment Noted Time PHQ-9 Depression Total Score: 6 12/27/2019 9:38 AM MEDICAL PATHOLOGY TEACHER documented as of this encounter Care Teams Intelligent Systems Engineer Relationship Specialty Start Date End Date Clinic, [facility] PCP - General 01/20/18 06/28/21 4[address] [place] [address] Stephani Pina APRN DRUG ENFORCEMENT AGENT Assigned PCP 01/30/20 12/30/20 [facility] [address] [place], [place] [address] documented as of this encounter
--- OUTSIDE RECORDS SUMMARY | 2021-12-05 19:21 | XMS_ITS | Encounter Summary ---
:1980 Author Organization [place] Address [facility] [place] [address] Care Team Providers Name Role Phone Clinic, [facility] Primary Care Provide r Stephani Pina Kim LEON SHORTHAND TEACHER Unavailable [phone] Reason for Visit Reason Onset Date Comments Erroneous encounter-disregard 03/26/2021 follow up last seen 08/23/2020 Encounter Details Date Type Department Care Team Description 03/26/2021 PRE VISIT [facility] Landon Warren, Brian Hepatology Clinic MD Luis Fernando encounter-disregard [address] (follow up last seen [address] [facility] [address] 08/23/2020) [place] [address] [phone] (Wo rk) Social History Tobacco Use Types Packs/Day Years Used Date Smoking Tobacco: Every Day Cigarettes 0.3 10 Smokeless Tobacco: Never Comments: 5-8 cigarettes a day Alcohol Use Standard Drinks/Week Comments Not Currently 0 (1 standard drink = 0.6 oz pure alcoho l) sober since 08/2020 Sex Assigned at Date Recorded Female 01/14/2020 10:57 AM CASTING 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 COVID-19 Exposure Response Date Recorded In the last month, have you been in contact with No / Unsure 03/05/2021 9:18 AM CASTING 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 someone who was confirmed or suspected to have Coronavirus / COVID-19? documented as of this encounter Miscellaneous Notes Telephone Encounter - Logan Carie L - 03/16/2021 11:11 AM CST disregard ING 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 documented in this encounter Plan of Treatment Upcoming Encounters Date Type Specialty Care Team Description 12/20/2021 Office Visit Wound Care Luis Camara DPM [address] [place], [place] [phone] (Wo rk) 01/21/2022 Office Visit Gastroenterology Juanis Levi [address]50 [place] [address] Luis Fernando Miles MD [address] [facility] [address] [place], [place] [address] documented as of this encounter Visit Diagnoses Not on filedocumented in this encounter Additional Health Concerns Assessment Noted Time PHQ-9 Depression Total Score: 2 12/15/2020 1:07 PM CDT documented as of this encounter Care Teams Primary Care Coordinator Relationship Specialty Start Date End Date Clinic, [facility] PCP - General 01/20/18 06/28/[address] [place] [id number] Stephani Pina APRN SHORTHAND TEACHER Assigned PCP 02/25/21 [facility] 700 [place] [address] documented as of this encounter
--- OUTSIDE RECORDS SUMMARY | 2021-12-05 19:21 | XMS_ITS | Encounter Summary ---
:1980 Author Organization [place] Address [address] [facility] [place] [address] Care Team Providers Name Role Phone Clinic, [facility] Primary Care Provide r Guerita Haasherb Bills DEICER REPAIRER PNEUMATIC BUS ATTENDANT Unavailable [phone] Encounter Details Date Type Department Care [...] at Date Recorded Female 01/14/2020 10:57 AM GUEST SPECIALIST COVID-19 Exposure Response Date Recorded In the last month, have you been in contact with No / Unsure 01/15/2021 1:15 PM GUEST SPECIALIST someone who was confirmed or suspected to have Coronavirus / COVID-19? documented as of this encounter Plan of Treatment Upcoming Encounters Date Type Specialty Care Team Description 12/20/2021 Office Visit Wound Care Luis Camara DPM 909 [place] [address] (Wo rk) 01/21/2022 Office Visit Gastroenterology Juanis Levi 2450 [place] [phone] Luis Fernando Miles MD 6 [facility] 2A [place], [place] [address] documented as of this encounter Visit Diagnoses Not on filedocumented in this encounter Additional Health Concerns Assessment Noted Time PHQ-9 Depression Total Score: 2 12/15/2020 1:07 PM CDT documented as of this encounter Care Teams Chip Machine Operator Relationship Specialty Start Date End Date Clinic, [facility] PCP - General 01/20/18 06/28/[address] [place] [address] Tatyana Haas APRN BUS ATTENDANT Assigned PCP 12/31/20 02/24/21 [facility] [address] [facility] [address] [place] [address] documented as of this encounter
--- OUTSIDE RECORDS SUMMARY | 2021-12-05 19:21 | XMS_ITS | Encounter Summary ---
:1980 Author Organization [place] Address [address] [facility] [place] [address] Care Team Providers Name Role Phone Clinic, [facility] Primary Care Provide r Stephani Pina APRN CANTEEN OPERATOR Unavailable [phone] Juanis Levi Primary Care Provider Elsa Yeh RN Unavailable Unavailable Rogelio Treadwell MD Unavailable [phone] Luis Camara DPM Unavailable [phone] Camryn Christina MD Unavailable Sintia Lange PA-C Unavailable Luis Fernando Miles MD Unavailable [phone] Reason for Visit Reason Comments Medication Refill Encounter Details Date Type Department Care Team Description 02/27/2021 Refill [facility] Reymundo Sifuentes MD Medication Refill [place] [address] [place] [address] [place] [phone] Social History Tobacco Use Types Packs/Day Years Used Date Smoking Tobacco: Every Day Cigarettes 0.3 10 Smokeless Tobacco: Never Comments: 5-8 cigarettes a day Alcohol Use Standard Drinks/Week Comments Not Currently 0 (1 standard drink = 0.6 oz pure alcoho l) sober since 08/2020 Sex Assigned at Date Recorded Female 01/14/2020 10:57 AM PIPE PULLER documented as of this encounter Miscellaneous Notes [...] Solano RN on 02/27/2021 at 4:18 PM PULLER documented in this encounter Plan of Treatment Upcoming Encounters Date Type Specialty Care Team Description 12/20/2021 Office Visit Wound Care Luis Camara DPM [address] [place], [place] [address] (Wo rk) 01/21/2022 Office Visit Gastroenterology Juanis Levi 2450 [place] [phone] Luis Fernando Miles MD [address] [address] documented as of this encounter Visit Diagnoses Diagnosis Opioid use disorder, severe, in sustaine d remission, on maintenance therapy (H) documented in this encounter Additional Health Concerns Infection Onset Date Last Indicated Resolved Time MRSAComment: Added from external infection. 11/07/201406/18 Assessment Noted Time PHQ-9 Depression Total Score: 2 12/15/2020 1:07 PM CDT documented as of this encounter Care Teams Cleaner Industrial Relationship Specialty Start Date End Date Clinic, [facility] PCP - General 01/20/18 [address] [place] [address] [place], [place] [phone] Juanis Levi PCP - General Addiction Medicine 06/29/21 [address] [facility] [place] [address] Stephani Pina, Assigned PCP 02/25/21 SOIL CHECKER CANTEEN OPERATOR [address] [place], [place] [address] Elsa Yeh, Registered Nurse Infectious Diseases 07/25/21 RN Rogelio Treadwell Assigned Musculoskeletal 08/04/21 MD August Provider [address] [place], [place] [address] Luis Camara MD Podiatry 08/16/21 CALVIN Burnett [address] [place], [place] [address] Camryn Christina Assigned Surgical 09/01/21 09/07/21 MD Lexie Provider 420 [facility] 195 [place], [place] [address] Sintia Lange PA-C Assigned Surgical 09/08/21 909 [facility] 4TH Provider FLOOR [place], [place] [address] Landon Warren MD Gastroenterology 11/21/21 MD Luis Fernando 516 [facility] [address] [place], [place] [address] documented as of this encounter
--- OUTSIDE RECORDS SUMMARY | 2021-12-05 19:21 | XMS_ITS | Encounter Summary ---
:1980 Author Organization [place] Address [address] [place] [address] Care Team Providers Name Role Phone Clinic, [facility] Primary Care Provide r Stephani Pina Kim YANES MANAGER KNOWLEDGE Unavailable [phone] Reason for Visit Reason Onset Date Comments *-*INCOMING RECORDS*-* 03/03/2020 Encounter Details Date Type Department Care Team Description 03/03/2020 PRE VISIT [facility] Inocencio Newberry *-*HEATHER Barriga RECORDS*-* Hepatology Clinic JIMBO Jesus [address] [phone] Social History Tobacco Use Types Packs/Day Years Used Date Smoking Tobacco: Every Day Cigarettes 0.3 10 Smokeless Tobacco: Never Comments: 5-8 cigarettes a day Alcohol Use Standard Drinks/Week Comments Yes 0 (1 standard drink = 0.6 oz pure alcoho l) drinking a pint of vodka daily Sex Assigned at Date Recorded Female 01/14/2020 10:57 AM PACKAGE SEALER COVID-19 Exposure Response Date Recorded In the last month, have you been in contact with No / Unsure 02/28/2020 9:23 AM PACKAGE SEALER someone who was confirmed or suspected to have Coronavirus / COVID-19? documented as of this encounter Miscellaneous Notes Telephone Encounter - Carie Ford Maycol - 03/01/2020 8:17 AM CST RECORDS RECEIVED FROM: Internal Appt Date: 03.03.2020 NOTES STATUS DETAILS OFFICE NOTE from referring provider Internal 02.28.2020 Juanis Levi MD OFFICE NOTES from other specialists Care Everywhere 08.25.2019 Leslie Rasheed D.O. [place] DISCHARGE SUMMARY from hospital Internal 07.04.2018 Joycelyn [...] N/A HEPATITIS B CORE ANTIBODY Internal 12.13.2016 AGE SEALER documented in this encounter Plan of Treatment Upcoming Encounters Date Type Specialty Care Team Description 12/20/2021 Office Visit Wound Care Luis Camara DPM 909 [place] [address] (Wo rk) 01/21/2022 Office Visit Gastroenterology Juanis Levi [address] [place] [address] Luis Fernando Miles MD [address] [address] documented as of this encounter Visit Diagnoses Not on filedocumented in this encounter Additional Health Concerns Assessment Noted Time PHQ-9 Depression Total Score: 6 12/27/2019 9:38 AM PACKAGE SEALER documented as of this encounter Care Teams Medical Imaging Director Relationship Specialty Start Date End Date Clinic, [facility] PCP - General 01/20/18 06/28/21 [facility] [place] [place] [address] Stephani Pina, FARZANA MANAGER KNOWLEDGE Assigned PCP 01/30/20 12/30/[address] [place] [address] 700 [place] [address] documented as of this encounter
--- OUTSIDE RECORDS SUMMARY | 2021-12-05 19:21 | XMS_ITS | Encounter Summary ---
:1980 Author Organization [place] Address [address] [place] [address]. [place] [address] Care Team Providers Name Role Phone Stephani Pina APRN EARLY CHILDHOOD EDUCATOR AIDE Unavailable [phone] Juanis Levi Primary Care Provider Reason for Visit Auth/Cert Specialty Diagnoses / Procedures Referred By Contact Refer red To Contact Med Surg Diagnoses Complicated Osteomyelitis [facility] [address] [place] [phone] Phone: Fax: Referral ID Status Reason Start Date Expiration Date Visits Requ ested Visits Authorized [id number] 1 1 Encounter Details Date Type Department Care Team Description 07/07/2021 Anesthesia Event M [facility] Roosevelt Doan MD 420 [place] [address] PeriOp Services Victoria Christy MD 500 [place] [address] [place] [address] Anesthesia Record Procedure Summary Procedure Name Responsible Anesthesia Start Anesthesia Stop Anesthesiologist Time Time IRRIGATION AND Roosevelt Doan MD 07/07/21 0757 07/07/21 0934 DEBRIDEMENT, FOOT and ankle, wound vac exchange (Right: Foot) Events Date Time Event Comment 07/07/2021 0647 BALLPOINT PENS ASSEMBLER Ready for Procedure 0757 An Start 0758 [...] Dickinson Fellegy, Mattilyn A, Time: 821 (created BEAD BUILDER BALLPOINT PENS ASSEMBLER FARZANA BALLPOINT PENS ASSEMBLER via procedure documentation); Airway Type: Standard LMA; Mask Ventilation: 0; LMA Size: 4; Airway Brand: Air-Q; Attempts: 1 Packing 07/07/21; 0903; 07/07/21 0903 by 07/23/21 1655 b y Right, Lateral; Monica Vallejo RN Inpatient, Nurse Ankle; Other (Comment) (3 pieces black wound vac sponge); 3; 07/23/21; 1655 Incision/Surgical Site 07/07/21; 0912; 07/07/21 0912 by 08/15/21 1200 by Right; Ankle; [facility] 08/15/21; Sadaf J RN documented in this encounter Social History Tobacco Use Types Packs/Day Years Used Date Smoking Tobacco: Every Day Cigarettes 0.3 10 Smokeless Tobacco: Never Comments: 5-8 cigarettes a day Alcohol Use Standard Drinks/Week Comments Not Currently 0 (1 standard drink = 0.6 oz pure alcoho l) sober since 08/2020 Sex Assigned at Date Recorded Female 01/14/2020 10:57 AM CAMPGROUND CLEANING ATTENDANT documented as of this encounter OR Notes [...] Patient location during procedure: OR Staff - BALLPOINT PENS ASSEMBLER: Irene Dickinson APRN CRNA Performed By: BALLPOINT PENS ASSEMBLER Consent for Airway Urgency: elective Indications and [...] So Luciano MD; Location: UR OR ??? LEISURE STUDIES PROFESSOR SURGERY ??? ORTHOPEDIC SURGERY ??? THORACIC SURGERY [...] and realistic alternatives discussed. Questions answered and patient/automobile rental representative(s) expressed understanding. - Discussed: - Discussed [...] Care Transfer Note - Irene Dickinson APRN BALLPOINT PENS ASSEMBLER - 07/07/2021 9:39 AM CDT Patient: Stephani [...] Visit Wound Care Luis Camara DPM 909 [place], [place] [address] (Wo rk) 01/21/2022 Office Visit Gastroenterology Juanis Levi 24[address] [place] [phone] Luis Fernando Miles MD [address] [phone] documented as of this encounter Procedures Procedure [...] during procedure : OR Staff - ? BALLPOINT PENS ASSEMBLER: Irene Dickinson APRN C RNA ? Performed By: BALLPOINT PENS ASSEMBLER Consent for Airway ? Urgency: elective Indications [...] Dentition: Intact and Unchanged Roosevelt Doan MD OR ANESTHESIA documented in this encounter Visit Diagnoses [...] or analgesic side effects. Hold while on SENIOR LIBRARIAN or with regular IV opioid dosing Given [...] documented as of this encounter Care Teams Plywood Layup Line Core Feeder Relationship Specialty Start Date End Date Juanis Levi PCP - General Addiction Medicine 06/29/21 [address] [place] [phone] Stephani Pina APRN EARLY CHILDHOOD EDUCATOR AIDE Assigned PCP 02/25/21 606 [facility] 700 [place] [address] documented as of this encounter
--- OUTSIDE RECORDS SUMMARY | 2021-12-05 19:21 | XMS_ITS | Encounter Summary ---
:1980 Author Organization [place] Address [facility] [place] [address] Care Team Providers Name Role Phone Clinic, [facility] Primary Care Provide r Eufemia Pinadelon Alvarez APRN BALANCE WHEEL FACER Unavailable Encounter Details Date Type Department Care Team Description 03/28/2020 Telephone [facility] Generic, Behavioral Behavioral Health In abigail Rivera MD 500 [place] [address] Social History Tobacco Use Types Packs/Day Years Used Date Smoking Tobacco: Every Day Cigarettes 0.3 10 Smokeless Tobacco: Never Comments: 5-8 cigarettes a day Alcohol Use Standard Drinks/Week Comments Yes 0 (1 standard drink = 0.6 oz pure alcoho l) drinking a pint of vodka daily Sex Assigned at Date Recorded Female 01/14/2020 10:57 AM HEALTH AND SAFETY TRAINER COVID-19 Exposure Response Date Recorded In the [...] Phase II appointment for client at [facility] Patient Name: ??See above Location of programming: [facility] Start Date: 05/18/2020 Group: ([id number] TH 5:30PM Provider: OLGA Baron Number of visits to be scheduled: 1 Length/Duration of Appointment in minutes: 120 Visit Type (VIDEO/TELEPHONE/IN-PERSON): Video ([id number]) Additional notes: Thanks OLGA Baron Telephone Encounter - Triston Cameron - 05/10/2020 8:17 AM CDT ----- Message from OLGA Deshpande sent at 05/09/2020 7:28 PM CDT ----- Regarding: Add 1 IOP KRYSTA Phase II appointment for client at [facility] Patient Name: ??See above Location of programming: [facility] [place] Start Date: 05/11/20 Group: ([id number] TH Provider: OLGA Baron Number of visits to be scheduled: 1 Length/Duration of Appointment in minutes: 120 Visit Type (VIDEO/TELEPHONE/IN-PERSON): Video (2299) Additional notes: OLGA Baron Telephone Encounter - Brittnee Lainez - 04/21/2020 3:34 PM CST ----- Message from OLGA Deshpande sent at 04/21/2020 3:16 PM HEALTH AND SAFETY TRAINER ----- Regarding: Set up IOP Phase III appointments for client at [facility] Patient Name: ??See above Location of programming: [facility] Start Date: 04/25/20 Group: ([id number] T 5:30PM Provider: OLGA Baron Number of visits to be scheduled: 8 Length/Duration of Appointment in minutes: 120 Visit Type (VIDEO/TELEPHONE/IN-PERSON): Video ([id number]) Additional notes: OLGA Jacobson TH AND SAFETY TRAINER Telephone Encounter - Brittnee Lainez - 04/21/2020 3:24 PM CST ----- Message from OLGA Deshpande sent at 04/21/2020 3:15 PM HEALTH AND SAFETY TRAINER ----- Regarding: Cancel all future mixed IOP KRYSTA Phase II appointments at [facility] Please arrange to cancel all future mixed IOP KRYSTA Phase II appointments for the above client at the [facility] effective immediately. [id number]. Client will begin Phase III next week. Thanks OLGA Baron TH AND SAFETY TRAINER Telephone Encounter - Britton Goodwin LADC - 04/05/2020 4:29 PM CST Received call from Aarti Tirado [facility]. CPS worker regarding getting notes regarding client. Indicated she would fax GIOVANNA to me. Aarti asked me specifically about client sobriety since client has not come in to [facility] for required breath tests. I reported that [...] information whatever their protocol indicates. OLGA Baron TH AND SAFETY TRAINER Telephone Encounter - Allie Aguilera - 03/28/2020 4:49 PM CST ----- Message from OLGA Deshpande sent at 03/28/2020 3:38 PM HEALTH AND SAFETY TRAINER ----- Regarding: Set up 1:1 appointment for client with me via video at [facility] Please arrange a 1:1 video (5942) appointment with me for the above client for March 29 at 1PM. My provider ID is; [id number]. Thanks OLGA Baron TH AND SAFETY TRAINER documented in this encounter Plan of Treatment Upcoming Encounters Date Type Specialty Care Team Description 12/20/2021 Office Visit Wound Care Luis Camara, [place] [address] [facility] [place], [place] [address] (Wo rk) 01/21/2022 Office Visit Gastroenterology Juanis Levi 2450 [place] [phone] Luis Fernando Miles MD 516 [facility] 2A [place], [place] [address] documented as of this encounter Visit Diagnoses Diagnosis Alcohol abuse, continuous - Primary Nondependent alcohol abuse, continuous d rinking behavior documented in this encounter Additional Health Concerns Assessment Noted Time PHQ-9 Depression Total Score: 6 12/27/2019 9:38 AM HEALTH AND SAFETY TRAINER documented as of this encounter Care Teams Marine Engineering Consultant Relationship Specialty Start Date End Date Clinic, [facility] PCP - General 01/20/18 06/28/[address] [place] [address] Stephani Pina APRN BALANCE WHEEL FACER Assigned PCP 01/30/20 12/30/20 606 [facility] 700 [place], [place] [address] documented as of this encounter
--- OUTSIDE RECORDS SUMMARY | 2021-12-05 19:21 | XMS_ITS | Encounter Summary ---
:1980 Author Organization [place] Address [address] [facility] [place] [address] Care Team Providers Name Role Phone Clinic, [facility] Primary Care Provide r Guerita Haasherb Bills CRACK OFF PERSON HYDROELECTRIC PLANT MECHANICAL ENGINEER Unavailable [phone] Encounter Details Date Type Department Care Team Description 02/12/2021 Office Visit [facility] Edgar Alfredoplic ated opioid Clinic Ashly Gauthier MD dependence (H) (Primary [address]) [address] [address] [place] [phone] Social History Tobacco Use Types Packs/Day Years Used Date Smoking Tobacco: Every Day Cigarettes 0.3 10 Smokeless Tobacco: Never Comments: 5-8 cigarettes a day Alcohol Use Standard Drinks/Week Comments Not Currently 0 (1 standard drink = 0.6 oz pure alcoho l) sober since 08/2020 Sex Assigned at Date Recorded Female 01/14/2020 10:57 AM CATAPULT AND ARRESTING GEAR OFFICER COVID-19 Exposure Response Date Recorded In the last month, have you been in contact with No / Unsure 01/15/2021 1:15 PM CATAPULT AND ARRESTING GEAR OFFICER someone who was confirmed or suspected to have Coronavirus / COVID-19? documented as of this encounter Progress Notes Edgar Alfredo MD - 02/12/2021 10:40 AM CST NO SHOW PULT AND ARRESTING GEAR OFFICER documented in this encounter Plan of Treatment Upcoming Encounters Date Type Specialty Care Team Description 12/20/2021 Office Visit Wound Care Luis Camara, [place] [address] [place], [place] [address] (Wo rk) 01/21/2022 Office Visit Gastroenterology Juanis Levi 2450 [place] [phone] Luis Fernando Miles MD 516 [facility] 2A [place], [place] [address] documented as of this encounter Visit Diagnoses Diagnosis Uncomplicated opioid dependence (H) - Pr imary Opioid type dependence, unspecified documented in this encounter Additional Health Concerns Assessment Noted Time PHQ-9 Depression Total Score: 2 12/15/2020 1:07 PM CDT documented as of this encounter Care Teams Nurseryman Assistant Relationship Specialty Start Date End Date Clinic, [facility] PCP - General 01/20/18 06/28/[address] [place] [address] Tatyana Haas APRN HYDROELECTRIC PLANT MECHANICAL ENGINEER Assigned PCP 12/31/20 02/24/21 [facility] [address] [facility] [address] [place] [address] documented as of this encounter
--- OUTSIDE RECORDS SUMMARY | 2021-12-05 19:21 | XMS_ITS | Encounter Summary ---
:1980 Author Organization [place] Address [address] [facility] [place] [address] Care Team Providers Name Role Phone Clinic, [facility] Primary Care Provide r YovaniStephani APRN CHIROPRACTIC ASSISTANT Unavailable [phone] Encounter Details Date Type Department Care [...] at Date Recorded Female 01/14/2020 10:57 AM MOUNTER CLARINETS COVID-19 Exposure Response Date Recorded In the last month, have you been in contact with No / Unsure 08/16/2020 11:17 AM CDT someone who was confirmed or suspected to have Coronavirus / COVID-19? documented as of this encounter Plan of Treatment Upcoming Encounters Date Type Specialty Care Team Description 12/20/2021 Office Visit Wound Care Luis Camara DPM 909 [place], [place] [address] (Wo rk) 01/21/2022 Office Visit Gastroenterology Juanis Levi [address] [place] [phone] Luis Fernando Miles MD 516 [facility] [address] [place], [place] [address] documented as of this encounter Visit Diagnoses Not on filedocumented in this encounter Additional Health Concerns Assessment Noted Time PHQ-9 Depression Total Score: 6 12/27/2019 9:38 AM MOUNTER CLARINETS documented as of this encounter Care Teams Machine Silver Stripper Relationship Specialty Start Date End Date Clinic, [facility] PCP - General 01/20/18 06/28/[address] [place] [address] Stephani Pina APRN CHIROPRACTIC ASSISTANT Assigned PCP 01/30/20 12/30/20 [address] [facility] 700 [place], [place] [address] documented as of this encounter
--- OUTSIDE RECORDS SUMMARY | 2021-12-05 19:21 | XMS_ITS | Encounter Summary ---
:1980 Author Organization [place] Address [facility]0 [place] [address] Care Team Providers Name Role Phone Clinic, [facility] Primary Care Provide r YovaniStephani APRN MEDICAL EDUCATION COORDINATOR Unavailable [phone] Encounter Details Date Type Department Care Team Description 06/21/2020 Telephone [facility] Generic, Behavioral Behavioral Health In abigail Rivera MD [address] [place] [address] Social History Tobacco Use Types Packs/Day Years Used Date Smoking Tobacco: Every Day Cigarettes 0.3 10 Smokeless Tobacco: Never Comments: 5-8 cigarettes a day Alcohol Use Standard Drinks/Week Comments Not Currently 0 (1 standard drink = 0.6 oz pure drinki ng a pint of vodka daily alcohol) Sex Assigned at Date Recorded Female 01/14/2020 10:57 AM MEDICAL DEVICE ASSEMBLER COVID-19 Exposure Response Date Recorded In [...] ----- Regarding: Add appointments for client at [facility] Patient Name: ??See above Location of programming: [facility] Start Date: 06/20/20 Group: ([id number] T 5:30PM Provider: OLGA Baron Number of visits to be scheduled: 4 Length/Duration of Appointment in minutes: 120 Visit Type (VIDEO/TELEPHONE/IN-PERSON): Video ([id number]) Additional notes: Thanks OLGA Baron documented in this encounter Plan of Treatment Upcoming Encounters Date Type Specialty Care Team Description 12/20/2021 Office Visit Wound Care Luis Camara DPM [address] [facility] [address] [place], [place] [phone] (Wo rk) 01/21/2022 Office Visit Gastroenterology Juanis Levi [address] [place] [phone] Luis Fernando Miles MD 516 [facility] 2A [place], [place] [address] documented as of this encounter Visit Diagnoses Diagnosis Alcohol abuse, continuous - Primary Nondependent alcohol abuse, continuous d rinking behavior documented in this encounter Additional Health Concerns Assessment Noted Time PHQ-9 Depression Total Score: 6 12/27/2019 9:38 AM MEDICAL DEVICE ASSEMBLER documented as of this encounter Care Teams Paint Mixer Machine Relationship Specialty Start Date End Date Clinic, [facility] PCP - General 01/20/18 06/28/[address] [place] [address] Stephani Pina APRN MEDICAL EDUCATION COORDINATOR Assigned PCP 01/30/20 12/30/20 [address] [facility] 700 [place], [place] [address] documented as of this encounter
--- OUTSIDE RECORDS SUMMARY | 2021-12-05 19:21 | XMS_ITS | Encounter Summary ---
:1980 Author Organization [place] Address [address] [facility] [place] [address] Care Team Providers Name Role Phone Clinic, [facility] Primary Care Provide r YovaniStephani APRN COLUMNIST Unavailable Encounter Details Date Type Department Care [...] at Date Recorded Female 01/14/2020 10:57 AM MAPLE PRODUCTS MAKER COVID-19 Exposure Response Date Recorded In the last month, have you been in contact with No / Unsure 09/27/2020 10:05 AM CDT someone who was confirmed or suspected to have Coronavirus / COVID-19? documented as of this encounter Plan of Treatment Upcoming Encounters Date Type Specialty Care Team Description 12/20/2021 Office Visit Wound Care Luis Camara DPM [address] [place], [place] [address] (Wo rk) 01/21/2022 Office Visit Gastroenterology Juanis Levi 2450 [place] [phone] Luis Fernando Miles MD [address] [facility] [address] [place], [place] [address] documented as of this encounter Visit Diagnoses Not on filedocumented in this encounter Additional Health Concerns Assessment Noted Time PHQ-9 Depression Total Score: 6 12/27/2019 9:38 AM MAPLE PRODUCTS MAKER documented as of this encounter Care Teams Risk Tech Relationship Specialty Start Date End Date Clinic, [facility] PCP - General 01/20/18 06/28/[address] [place] [address] Stephani Pina APRN COLUMNIST Assigned PCP 01/30/20 12/30/20 [address] [facility] [address] [place], [place] [address] documented as of this encounter
--- OUTSIDE RECORDS SUMMARY | 2021-12-05 19:22 | XMS_ITS | Encounter Summary ---
:1980 Author Organization [place] Address [facility] [place] [address] Care Team Providers Name Role Phone Clinic, [facility] Primary Care Provide r Tatyana Haas Sanju FIELD HUMAN RESOURCES MANAGER OPERATIONS SUPPORT ANALYST Unavailable [phone] Reason for Visit Reason Onset Date Comments No Show 12/28/2018 Encounter Details Date Type Department Care Team Description 12/28/2018 Office Visit [facility] Chon NO SHOW (P rimary Dx) Clinic Ashly Russ PA-C [address] [place] [address] [address] [facility] 700 [place] [address] [phone] Social History Tobacco Use Types Packs/Day Years Used Date Smoking Tobacco: Every Day Cigarettes 0.3 10 Smokeless Tobacco: Never Comments: 5-8 cigarettes a day Alcohol Use Standard Drinks/Week Comments Not Currently 0 (1 standard drink = 0.6 oz pure alcoho l) sober 16 days Sex Assigned at Date Recorded Female 01/14/2020 10:57 AM CONTROL SYSTEM MANAGER documented as of this encounter Progress Notes Alexander Linda MA - 12/28/2018 10:40 AM CST This patient was a no show for this scheduled appointment. ROL SYSTEM MANAGER documented in this encounter Plan of Treatment Upcoming Encounters Date Type Specialty Care Team Description 12/20/2021 Office Visit Wound Care Luis Camara DPM [address] [facility] [place], [place] [address] (Wo rk) 01/21/2022 Office Visit Gastroenterology Juanis Levi 2450 [place] [address] Luis Fernando Miles MD 516 [facility] [address] [place] [address] documented as of this encounter Visit Diagnoses Diagnosis NO SHOW - Primary documented in this encounter Additional Health Concerns Assessment Noted Time PHQ-9 Depression Total Score: 10 07/08/2018 1:27 PM CD T documented as of this encounter Care Teams Manager Home Improvement Relationship Specialty Start Date End Date Clinic, [facility] PCP - General 01/20/18 06/28/[address] [place] [address] Tatyana Haas APRN OPERATIONS SUPPORT ANALYST Assigned PCP 08/02/18 01/29/20 [facility] [address] [facility] [address] [place] [address] documented as of this encounter
--- OUTSIDE RECORDS SUMMARY | 2021-12-05 19:22 | XMS_ITS | Encounter Summary ---
:1980 Author Organization [place] Address [address] [facility] [place] [address] Care Team Providers Name Role Phone Clinic, [facility] Primary Care Provide r Guerita Haasherb Bills INSIDE SALES ADMINISTRATOR SILVER WRAPPER Unavailable [phone] Encounter Details Date Type Department Care [...] at Date Recorded Female 01/14/2020 10:57 AM ANTENNA DESIGN ENGINEER COVID-19 Exposure Response Date Recorded In the last month, have you been in contact with No / Unsure 01/11/2020 8:00 PM ANTENNA DESIGN ENGINEER someone who was confirmed or suspected to have Coronavirus / COVID-19? documented as of this encounter Plan of Treatment Upcoming Encounters Date Type Specialty Care Team Description 12/20/2021 Office Visit Wound Care Luis Camara DPM 909 [place] [address] (Wo rk) 01/21/2022 Office Visit Gastroenterology Juanis Levi [address] [place] [address] Luis Fernando Miles MD 516 [facility] [address] [place], [place] [address] documented as of this encounter Visit Diagnoses Not on filedocumented in this encounter Additional Health Concerns Assessment Noted Time PHQ-9 Depression Total Score: 6 12/27/2019 9:38 AM ANTENNA DESIGN ENGINEER documented as of this encounter Care Teams Physician Extender Relationship Specialty Start Date End Date Clinic, [facility] PCP - General 01/20/18 06/28/[address] [place] [address] Tatyana Haas APRN SILVER WRAPPER Assigned PCP 08/02/18 01/29/20 [facility] [address] [facility] [address] [place] [address] documented as of this encounter
--- OUTSIDE RECORDS SUMMARY | 2021-12-05 19:22 | XMS_ITS | Encounter Summary ---
:1980 Author Organization [place] Address [facility] [place] [address] Care Team Providers Name Role Phone Clinic, [facility] Primary Care Provide r Tatyana Haas TECHNICIAN SEMICONDUCTOR DEVELOPMENT INDUSTRIAL ENGINEERING INTERN Unavailable [phone] Stephani Pina TECHNICIAN SEMICONDUCTOR DEVELOPMENT INDUSTRIAL ENGINEERING INTERN Unavailable [phone] Encounter Details Date Type Department Care Team Description 01/18/2020 Telephone [facility] Generic, [facility] In abigail Rivera MD [address] [place] [address] Social History Tobacco Use Types Packs/Day Years Used Date Smoking Tobacco: Every Day Cigarettes 0.3 10 Smokeless Tobacco: Never Comments: 5-8 cigarettes a day Alcohol Use Standard Drinks/Week Comments Yes 0 (1 standard drink = 0.6 oz pure alcoho l) drinking a pint of vodka daily Sex Assigned at Date Recorded Female 01/14/2020 10:57 AM CAMERA TECHNICIAN COVID-19 Exposure Response Date Recorded In the last month, have you been in contact with No / Unsure 07/12/2020 11:10 AM CDT someone who was confirmed or suspected to have Coronavirus / COVID-19? documented as of this encounter Miscellaneous Notes Telephone Encounter - Brittnee Lainez - 03/08/2020 2:53 PM CST ----- Message from OLGA Deshpande sent at 03/08/2020 1:47 PM CAMERA TECHNICIAN ----- Regarding: Set up appointments for client at [facility] Patient Name: ??See above Location of programming: [facility] Start Date: 03/13/2020 Group: ([id number] M, W, TH 5:30PM Provider: OLGA Baron Number of visits to be scheduled: 17 Length/Duration of Appointment in minutes: 120 Visit Type (VIDEO/TELEPHONE/IN-PERSON): Video ([id number]) Additional notes: Thanks OLGA Baron RA TECHNICIAN Telephone Encounter - Brittnee Lainez - 03/02/2020 3:11 PM CST ----- Message from OLGA Deshpande sent at 03/02/2020 2:17 PM CAMERA TECHNICIAN ----- Regarding: Add IOP CD Phase I appointments for client at [facility] Patient Name: ??See above Location of programming: [facility] Start Date:03/02/2020 Group: ([id number] M, T, W, TH 5:30PM Provider: OLGA Baron Number of visits to be scheduled: 5 Length/Duration of Appointment in minutes: M, W, TH 120 T 180 Visit Type (VIDEO/TELEPHONE/IN-PERSON): Video ([id number]) Additional notes: Thanks OLGA Baron RA TECHNICIAN Telephone Encounter - Leticia Donohue - 01/19/2020 3:16 PM CST ----- Message from OLGA Deshpande sent at 01/19/2020 2:58 PM CAMERA TECHNICIAN ----- Regarding: Move 1:1 appointment for client from 01/18 to 01/19 Please move the 1:1 appointment scheduled for the above client with me for January 18 at 4:30PM to January 19 at 4:30PM at the [facility]. 6736 video appointment. My provider ID is: [id number]. Thanks OLGA Baron RA TECHNICIAN Telephone Encounter - Victoria Nunes - 01/18/2020 1:50 PM CST ----- Message from OLGA Deshpande sent at 01/17/2020 3:35 PM CAMERA TECHNICIAN ----- Regarding: RE: Referring to [facility] Please arrange for a 1:1 appointment for the above client via video with me on January 2a 4:30PM. My provider ID is; [id number] Patient Name: See above?? Location of programming: [facility] Start Date: 01/19/2020 Group: ([id number] M, T, W, TH 5:30PM Provider: OLGA Baron Number of visits to be scheduled: 26 Length/Duration of Appointment in minutes: M, W, Th, 120 T 180 Visit Type (VIDEO/TELEPHONE/IN-PERSON): Video ([id number]) Additional notes: Thanks OLGA Baron ----- Message ----- From: June Porter LADC Sent: 01/14/2020 2:30 PM CAMERA TECHNICIAN To: OLGA Deshpande, [facility] Outpatient Intake Subject: Referring to [facility] Hey- I've referred this patient to [facility] evening [facility]. Comp assessment completed. She is likely to discharge from today 01/14/2020 and is instructed to follow up with Britton to schedule. Please reach out to patient to coordinate. Thanks! June #[id number] RA TECHNICIAN documented in this encounter Plan of Treatment Upcoming Encounters Date Type Specialty Care Team Description 12/20/2021 Office Visit Wound Care Luis Camara DPM 9[address] [place] [address] (Wo rk) 01/21/2022 Office Visit Gastroenterology Juanis Levi [address] [place] [address] Luis Fernando Miles MD 6 [facility] [address] [place], [place] [address] documented as of this encounter Visit Diagnoses Diagnosis Alcohol abuse, continuous - Primary Nondependent alcohol abuse, continuous d rinking behavior documented in this encounter Additional Health Concerns Assessment Noted Time PHQ-9 Depression Total Score: 6 12/27/2019 9:38 AM CAMERA TECHNICIAN documented as of this encounter Care Teams Injection Wax Molder Relationship Specialty Start Date End Date Clinic, [facility] PCP - General 01/20/18 06/28/21 [facility] [place] [address] Tatyana Haas APRN INDUSTRIAL ENGINEERING INTERN Assigned PCP 08/02/18 01/29/20 [facility] [address] [facility] [address] [place] [address] Stephani Pina APRN INDUSTRIAL ENGINEERING INTERN Assigned PCP 01/30/20 12/30/[address] [place] [address] 700 [place], [place] [address] documented as of this encounter
--- OUTSIDE RECORDS SUMMARY | 2021-12-05 19:22 | XMS_ITS | Encounter Summary ---
:1980 Author Organization [place] Address [facility] [place] [address] Care Team Providers Name Role Phone Clinic, [facility] Primary Care Provide r Tatyana Haas Sanju REAL TIME OPERATOR DITCHING 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 Unavailable [phone] Reason for Visit Reason Comments Alcohol Intoxication Encounter Details Date Type Department Care Team Description 12/18/2018 Emergency [facility] Odette Frank MD [facility] [address] [place] [address] Alcoholic intoxication [facility] [address] [place] [address] without complication Dept (H) [address] [place] [address] Social History Tobacco Use Types Packs/Day Years Used Date Smoking Tobacco: Every Day Cigarettes 0.3 10 Smokeless Tobacco: Never Comments: 5-8 cigarettes a day Alcohol Use Standard Drinks/Week Comments Not Currently 0 (1 standard drink = 0.6 oz pure alcoho l) sober 16 days Sex Assigned at Date Recorded Female 01/14/2020 10:57 AM SECURITY OPERATIONS 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 Alcohol Intoxication (Taiwanese)documented in this encounter Medications at Time of [...] Depression Psychotic disorder Thyroid disease Cerebrovascular disease [facility] Asthma Social History: Presents alone. Current ever [...] provider's statements to me. Otto Peterson 12/18/2018 [facility] EM[facility] Eliud Fernandez MD 12/21/18 [address] [facility] OPERATOR documented in this encounter Plan of Treatment Upcoming Encounters Date Type Specialty Care Team Description 12/20/2021 Office Visit Wound Care Luis Camara, [place] [address] [place] [address] (Wo rk) 01/21/2022 Office Visit Gastroenterology Juanis Levi [address] [place] [address] Luis Fernando Miles MD [address] [facility] 2[address] [place] [address] documented as of this encounter [...] Ethanol g/dL 0.35 (HH) <0.01 g/dL 12/18/2018 [place] 3:59 PM CDT [facility] Comment: Critical Value called to and read back Branden BOONE (ERA) ON 12.18.2018 AT 1556, SP Specimen Anatomical Collection Method Collection Time Receive d Time (Source) Location / / Volume Laterality Blood specimen 12/18/2018 2:48 PM 019 3:24 (specimen) CDT PM CDT Christopher Frank MD LAB - BLOOD ORDERABLES Performing Organization Address City/State/ZIP Code Phon e Number M [facility] [address] [place], [place] [address] [facility] [address] [phone] (ABNORMAL) Comprehensive metabolic panel (12/18/2018 2:48 PM T) athologist Signature Sodium 141 133 - 144 12/18/2018 [place] mmol/L 3:44 PM [facility] Potassium 3.5 3.4 - 5.3 12/18/2018 [place] mmol/L 3:44 PM [facility] Chloride 105 94 - 109 12/18/2018 [place] mmol/L 3:44 PM [facility] Carbon Dioxide 28 20 - 32 12/18/2018 [place] mmol/L 3:51 PM [facility] Anion Gap 8 3 - 14 12/18/2018 [place] mmol/L 3:51 PM [facility] Glucose 124 (H) 70 - 99 12/18/2018 [place] mg/dL 3:51 PM [facility] Urea Nitrogen 4 (L) 7 - 30 12/18/2018 [place] mg/dL 3:51 PM [facility] Creatinine 0.59 0.52 - 12/18/2018 [facility] 1.[facility] mg/dL 3:51 PM [facility] GFR Estimate >90 >60 12/18/2018 [place] mL/min/{1. 3:51 PM [facility] 73_m2} HOSPITAL Comment: Non GFR Calc Starting 02/03/2018, serum creatinine ba sed estimated GFR (eGFR) will be calculated using the Chronic Kidney Dise [facility] Epidemiology Collaboration (CKD-EPI) equation. GFR Estimate If >90 >60 mL/min/{1.73_m2} 12/18/2018 3: 51 PM [facility] Comment: GFR Calc Starting 02/03/2018, serum creatinine ba sed estimated GFR (eGFR) will be calculated using the Chronic Kidney Dise [facility] Epidemiology Collaboration (CKD-EPI) equation. Calcium 8.5 8.5 - 10.1 12/18/2018 3:51 PM [place] R IDGES mg/dL [facility] Bilirubin Total 0.7 0.2 - 1.3 mg/dL 12/18/2018 3:53 PM [facility] Albumin 3.9 3.4 - 5.0 g/dL 12/18/2018 3:53 PM [facility] Protein Total 8.3 6.8 - 8.8 g/dL 12/18/2018 3:53 PM [facility] Alkaline Phosphatase 151 (H) 40 - 150 U/L 12/18/2018 3:53 PM [facility] ALT 172 (H) 0 - 50 U/L 12/18/2018 3:53 PM [facility] AST 228 (H) 0 - 45 U/L 12/18/2018 3:53 PM [facility] Specimen Anatomical Collection Method Collection Time Receive d Time (Source) Location / / Volume Laterality Blood specimen 12/18/2018 2:48 PM 019 3:24 (specimen) CDT PM CDT Christopher Frank MD LAB - BLOOD ORDERABLES Performing Organization Address City/State/ZIP Code Phon e Number M [place] [address] [address] [place] [address] HOSPITAL [facility] [address] [phone] (ABNORMAL) CBC with platelets differential (12/18/2018 2:48 PM CDT) [facility] Method Time Signature WBC 3.2 (L) 4.0 - 12/18/2018 [facility] 11.0 3:28 PM [facility] 10e9/L [facility] RBC Count 4.32 3.8 - 5.2 12/18/2018 [facility] 10e12/L 3:28 PM [facility] Hemoglobin 14.3 11.7 - 12/18/2018 [facility] 15.7 g/dL 3:28 PM [facility] Hematocrit 41.9 35.0 - 12/18/2018 [facility] 47.0 % 3:28 PM [facility] MCV 97 78 - 100 12/18/2018 [facility] fl 3:28 PM [facility] MCH 33.1 (H) 26.5 - 12/18/2018 [facility] 33.0 pg 3:28 PM [facility] MCHC 34.1 31.5 - 12/18/2018 [facility] 36.5 g/dL 3:28 PM [facility] RDW 13.2 10.0 - 12/18/2018 [facility] 15.0 % 3:28 PM [facility] Platelet Count 97 (L) 150 - 450 12/18/2018 [facility] 10e9/L 3:28 PM [facility] Diff Method Automated 12/18/2018 [facility] Method 3:28 PM [facility] % Neutrophils 36.5 % 12/18/2018 [facility] 3:28 PM [facility] % Lymphocytes 47.0 % 12/18/2018 [facility] 3:28 PM [facility] % Monocytes 10.5 % 12/18/2018 [facility] 3:28 PM [facility] % Eosinophils 3.8 % 12/18/2018 [facility] 3:28 PM [facility] % Basophils 1.6 % 12/18/2018 [facility] 3:28 PM [facility] % Immature 0.6 % 12/18/2018 [facility] Granulocytes 3:28 PM [facility] Nucleated RBCs 0 0 /100 12/18/2018 [facility] 3:28 PM [facility] Absolute 1.2 (L) 1.6 - 8.3 12/18/2018 [facility] Neutrophil 10e9/L 3:28 PM [facility] Absolute 1.5 0.8 - 5.3 12/18/2018 [facility] Lymphocytes 10e9/L 3:28 PM [facility] Absolute 0.3 0.0 - 1.3 12/18/2018 [facility] Monocytes 10e9/L 3:28 PM [facility] Absolute 0.1 0.0 - 0.7 12/18/2018 [facility] Eosinophils 10e9/L 3:28 PM [facility] Absolute 0.1 0.0 - 0.2 12/18/2018 [facility] Basophils 10e9/L 3:28 PM [facility] Abs Immature 0.0 0 - 0.4 12/18/2018 [facility] Granulocytes 10e9/L 3:28 PM [facility] Absolute 0.0 12/18/2018 [facility] Nucleated RBC 3:28 PM [facility] Specimen Anatomical Collection Method Collection Time Receive d Time (Source) Location / / Volume Laterality Blood specimen 12/18/2018 2:48 PM 019 3:24 (specimen) CDT PM CDT Christopher Frank MD LAB - BLOOD ORDERABLES Performing Organization Address City/State/ZIP Code Phon e Number M [facility] [address] [place], [place] [address] [facility] [address] [place], [place] [address] [facility] [phone] documented in this encounter Visit Diagnoses Diagnosis [...] documented as of this encounter Care Teams What Job Titles Mean Relationship Specialty Start Date End Date Clinic, [facility] PCP - General 01/20/18 06/28/21 [facility] [place] [address] Tatyana Haas APRN DITCHING 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 Assigned PCP 08/02/18 01/29/20 [place] [facility] [address] [facility] [address] [place] [address] documented as of this encounter
--- OUTSIDE RECORDS SUMMARY | 2021-12-05 19:22 | XMS_ITS | Encounter Summary ---
:1980 Author Organization [place] Address [address] [facility] [place] [address] Care Team Providers Name Role Phone Clinic, [facility] Primary Care Provide r Stephani Pina Kim YANES GYN PHYSICIAN Unavailable [phone] Encounter Details Date Type Department Care [...] Date Recorded Female 01/14/2020 10:57 AM EDGE PLUGGER COVID-19 Exposure Response Date Recorded In the last month, have you been in contact with No / Unsure 01/31/2020 9:14 AM EDGE PLUGGER someone who was confirmed or suspected to have Coronavirus / COVID-19? documented as of this encounter Plan of Treatment Upcoming Encounters Date Type Specialty Care Team Description 12/20/2021 Office Visit Wound Care Luis Camara DPM [address] [place] [address] (Wo rk) 01/21/2022 Office Visit Gastroenterology Juanis Levi [address] [place] [address] Luis Fernando Miles MD [address] [facility] [address] [place], [place] [id number] documented as of this encounter Visit Diagnoses Not on filedocumented in this encounter Additional Health Concerns Assessment Noted Time PHQ-9 Depression Total Score: 6 12/27/2019 9:38 AM EDGE PLUGGER documented as of this encounter Care Teams Emergency Room Physician Assistant Relationship Specialty Start Date End Date Clinic, [facility] PCP - General 01/20/18 06/28/[address] [place] [id number] Stephani Pina APRN GYN PHYSICIAN Assigned PCP 01/30/20 12/30/[address] [place], [place] [address] documented as of this encounter
--- OUTSIDE RECORDS SUMMARY | 2021-12-05 19:22 | XMS_ITS | Encounter Summary ---
:1980 Author Organization [place] Address [address] [facility] [place] [address] Care Team Providers Name Role Phone Clinic, [facility] Primary Care Provide r Guerita Haasdia Sanju FOREIGN SERVICE TEACHER VOIP NETWORK ENGINEER Unavailable [phone] Encounter Details Date Type Department Care [...] at Date Recorded Female 01/14/2020 10:57 AM RESERVOIR ENGINEERING MANAGER documented as of this encounter Plan of Treatment Upcoming Encounters Date Type Specialty Care Team Description 12/20/2021 Office Visit Wound Care Luis Camara DPM [address] [place], [place] [address] (Wo rk) 01/21/2022 Office Visit Gastroenterology Juanis Levi [address] [place] [address] Luis Fernando Miles MD [address] [facility] [place] [address] documented as of this encounter Visit Diagnoses Not on filedocumented in this encounter Additional Health Concerns Assessment Noted Time PHQ-9 Depression Total Score: 10 07/08/2018 1:27 PM CD T documented as of this encounter Care Teams School Library Media Program Director Relationship Specialty Start Date End Date Clinic, [facility] PCP - General 01/20/18 06/28/21 [facility] [place] [id number] Tatyana Haas APRN VOIP NETWORK ENGINEER Assigned PCP 08/02/18 01/29/20 [place] [facility] [address] [facility] [address] [place] [address] documented as of this encounter
--- OUTSIDE RECORDS SUMMARY | 2021-12-05 19:22 | XMS_ITS | Encounter Summary ---
:1980 Author Organization [place] Address [address] [facility] [place] [address] Care Team Providers Name Role Phone Clinic, [facility] Primary Care Provide r Guerita Haasdia Sanju EDGE GRINDER ROUNDSMAN Unavailable [phone] Encounter Details Date Type Department Care [...] Date Recorded Female 01/14/2020 10:57 AM ALUMNI COORDINATOR documented as of this encounter Plan of Treatment Upcoming Encounters Date Type Specialty Care Team Description 12/20/2021 Office Visit Wound Care Luis Camara DPM [address] [place], [place] [address] (Wo rk) 01/21/2022 Office Visit Gastroenterology Juanis Levi [address] [place] [address] Luis Fernando Miles MD [address] [facility] [address] [place] [address] documented as of this encounter Visit Diagnoses Not on filedocumented in this encounter Additional Health Concerns Assessment Noted Time PHQ-9 Depression Total Score: 10 07/08/2018 1:27 PM CD T documented as of this encounter Care Teams Gel Coat Sprayer Relationship Specialty Start Date End Date Clinic, [facility] PCP - General 01/20/18 06/28/21 [facility] [place] [phone] Tatyana Haas APRN ROUNDSMAN Assigned PCP 08/02/18 01/29/20 [place] [facility] [address] [facility] [address] [place] [address] documented as of this encounter
--- OUTSIDE RECORDS SUMMARY | 2021-12-05 19:22 | XMS_ITS | Encounter Summary ---
:1980 Author Organization [place] Address [address] [facility] [place] [address] Care Team Providers Name Role Phone Clinic, [facility] Primary Care Provide r Guerita aHasherb Bills DIRECTOR REGULATORY AFFAIRS SUPERVISOR METAL PLACING Unavailable [phone] Encounter Details Date Type Department Care [...] Date Recorded Female 01/14/2020 10:57 AM DYE STAND LOADER COVID-19 Exposure Response Date Recorded In the last month, have you been in contact with No / Unsure 12/31/2019 2:41 PM DYE STAND LOADER someone who was confirmed or suspected to have Coronavirus / COVID-19? documented as of this encounter Plan of Treatment Upcoming Encounters Date Type Specialty Care Team Description 12/20/2021 Office Visit Wound Care Luis Camara DPM [address] [place] [address] (Wo rk) 01/21/2022 Office Visit Gastroenterology Juanis Levi [address] [place] [address] Luis Fernando Miles MD [address] [facility] [address] [place], [place] [address] documented as of this encounter Visit Diagnoses Not on filedocumented in this encounter Additional Health Concerns Assessment Noted Time PHQ-9 Depression Total Score: 6 12/27/2019 9:38 AM DYE STAND LOADER documented as of this encounter Care Teams Shackler Relationship Specialty Start Date End Date Clinic, [facility] PCP - General 01/20/18 06/28/[address] [place] [address] Tatyana Haas APRN SUPERVISOR METAL PLACING Assigned PCP 08/02/18 01/29/20 [facility] [address] [facility] [address] [place] [address] documented as of this encounter
--- OUTSIDE RECORDS SUMMARY | 2021-12-05 19:22 | XMS_ITS | Encounter Summary ---
:1980 Author Organization [place] Address [address] [facility] [address] Care Team Providers Name Role Phone Clinic, [facility] Primary Care Provide r Guerita Haasherb Bills MAGAZINE WRITER CHIMNEY CONSTRUCTION SUPERVISOR Unavailable [phone] Encounter Details Date Type Department Care [...] at Date Recorded Female 01/14/2020 10:57 AM REFRACTORY MIXER COVID-19 Exposure Response Date Recorded In the last month, have you been in contact with No / Unsure 01/07/2020 9:15 AM REFRACTORY MIXER someone who was confirmed or suspected to have Coronavirus / COVID-19? documented as of this encounter Plan of Treatment Upcoming Encounters Date Type Specialty Care Team Description 12/20/2021 Office Visit Wound Care Luis Camara DPM [address] [place] [address] (Wo rk) 01/21/2022 Office Visit Gastroenterology Juanis Levi [address] [place] [address] Luis Fernando Miles MD [address] [facility] 2A [place], [place] [address] documented as of this encounter Visit Diagnoses Not on filedocumented in this encounter Additional Health Concerns Assessment Noted Time PHQ-9 Depression Total Score: 6 12/27/2019 9:38 AM REFRACTORY MIXER documented as of this encounter Care Teams Atv Mechanic Relationship Specialty Start Date End Date Clinic, [facility] PCP - General 01/20/18 06/28/[address] [place] [address] Tatyana Haas APRN CHIMNEY CONSTRUCTION SUPERVISOR Assigned PCP 08/02/18 01/29/20 [facility] [address] [facility] [address] [place] [address] documented as of this encounter
--- OUTSIDE RECORDS SUMMARY | 2021-12-05 19:22 | XMS_ITS | Encounter Summary ---
:1980 Author Organization [place] Address [address] [facility] [place] [address] Care Team Providers Name Role Phone Clinic, [facility] [place] Primary Care Provide r Tatyana Haas Sanju PILLOW AGENT DATA ANALYTICS DEVELOPER Unavailable [phone] Reason for Visit Reason Onset Date Comments MH/CD Inpatient 04/01/2019 Encounter Details Date Type Department Care Team Description 04/01/2019 Telephone [facility] Generic, Behavioral MH/ CD Inpatient Behavioral Health In abigail Rivera MD [address] [place] [address] Social History Tobacco Use Types Packs/Day Years Used Date Smoking Tobacco: Every Day Cigarettes 0.3 10 Smokeless Tobacco: Never Comments: 5-8 cigarettes a day Alcohol Use Standard Drinks/Week Comments Not Currently 0 (1 standard drink = 0.6 oz pure alcoho l) sober 16 days Sex Assigned at Date Recorded Female 01/14/2020 10:57 AM METAL STAMPER documented as of this encounter Miscellaneous Notes Telephone Encounter - Claudette Francis - 04/01/2019 5:26 PM CST S: [facility] seeking detox placement for a 38yo [...] and ready for behavioral bed placement: Yes L STAMPER documented in this encounter Plan of Treatment Upcoming Encounters Date Type Specialty Care Team Description 12/20/2021 Office Visit Wound Care Luis Camara DPM [address] [place] [address] (Wo rk) 01/21/2022 Office Visit Gastroenterology Juanis Levi [address] [place] [phone] Luis Fernando Miles MD [address] [facility] 2A [place] [address] documented as of this encounter Visit Diagnoses Not on filedocumented in this encounter Additional Health Concerns Assessment Noted Time PHQ-9 Depression Total Score: 10 07/08/2018 1:27 PM CD T documented as of this encounter Care Teams Geothermal Hvac Technician Relationship Specialty Start Date End Date Clinic, [facility] [place] PCP - General 01/20/18 06/28/[address] [place] [address] Tatyana Haas, PILLOW AGENT DATA ANALYTICS DEVELOPER Assigned PCP 08/02/18 01/29/20 [place] [facility] [address] [facility] [address] [place] [address] documented as of this encounter
--- OUTSIDE RECORDS SUMMARY | 2021-12-05 19:22 | XMS_ITS | Encounter Summary ---
:1980 Author Organization [place] Address [address] [facility] [place] [address] Care Team Providers Name Role Phone Clinic, [facility] Primary Care Provide r Guerita Haasdia Sanju EXTENSION SERVICE AGENT TRIM SETTER Unavailable [phone] Encounter Details Date Type Department Care [...] Recorded Female 01/14/2020 10:57 AM HEAD OF MUSIC documented as of this encounter Plan of Treatment Upcoming Encounters Date Type Specialty Care Team Description 12/20/2021 Office Visit Wound Care Luis Camara DPM [address] [place], [place] [address] (Wo rk) 01/21/2022 Office Visit Gastroenterology Juanis Levi [address] [place] [address] Luis Fernando Miles MD [address] [facility] [address] [place] [address] documented as of this encounter Visit Diagnoses Not on filedocumented in this encounter Additional Health Concerns Assessment Noted Time PHQ-9 Depression Total Score: 10 07/08/2018 1:27 PM CD T documented as of this encounter Care Teams Door Fitter Relationship Specialty Start Date End Date Clinic, [facility] PCP - General 01/20/18 06/28/21 [facility], [place] [phone] Tatyana Haas APRN TRIM SETTER Assigned PCP 08/02/18 01/29/20 [place] [facility] [address] [facility] [address] [place] [address] documented as of this encounter
--- OUTSIDE RECORDS SUMMARY | 2021-12-05 19:22 | XMS_ITS | Encounter Summary ---
:1980 Author Organization [place] Address [facility] [place] [address] Care Team Providers Name Role Phone Clinic, [facility] Primary Care Provide r Tatyana Haas Sanju FITNESS AND WELLNESS COORDINATOR CAN RECONDITIONER Unavailable [phone] Reason for Visit Reason Comments Alcohol Problem Encounter Details Date Type Department Care Team Description 01/20/2019 - [facility] Eliud Fernandez lcohol abuse, continuous; 01/21/2019 [facility] Emergency MD Solomon Nicotine dependence; Dept [facility] Alcohol dependence with unsp ecified alcohol-induced disorder (H); [address] [place] Nicotine dependence, uncomplicated, unsp ecified nicotine product type [place], [place] [address] [address] [place] [address] [place], [place] [address] (Wo rk) Social History Tobacco Use Types Packs/Day Years Used Date Smoking Tobacco: Every Day Cigarettes 0.3 10 Smokeless Tobacco: Never Comments: 5-8 cigarettes a day Alcohol Use Standard Drinks/Week Comments Not Currently 0 (1 standard drink = 0.6 oz pure alcoho l) sober 16 days Sex Assigned at Date Recorded Female 01/14/2020 10:57 AM WORKPLACE RELATIONS ADVISER documented as of this encounter Last Filed Vital Signs Vital Sign Reading Time Taken Comments Blood Pressure 156/95 01/21/2019 1:10 AM WORKPLACE RELATIONS ADVISER Pulse 99 01/21/2019 1:10 AM WORKPLACE RELATIONS ADVISER Temperature 36.8 ??C (98.3 ??F) 01/20/2019 8:05 PM WORKPLACE RELATIONS ADVISER Respiratory Rate - - Oxygen Saturation 98% 01/21/2019 1:10 AM WORKPLACE RELATIONS ADVISER Inhaled Oxygen Concentration - - Weight - [...] Surgical History: Breast surgery section x 2 Furnace Fitter surgery Orthopedic surgery Thoracic surgery Family History: Mother - Depression, psychotic disorder, thyroid disease Father - Cerebrovascular disease, [place] Brother(s) - Depression Son - Asthma Social [...] patient. Patient placed on ROBERT hold. ([id number]) [address] [place] [address] agreed to take the patient into their care. Findings and plan explained to the Patient. Patient will be transferred to [address] [place] [address] via EMS. Discussed the case with [address] [place] [address], who will admit the patient to a [...] nicotine product type F17.200 Disposition: Discharged to [address] [place] [address]. Scribe Disclosure: IKaveh, am serving as a scribe at 8:36 PM on 01/20/2019 to document services personally performed by Eliud Fernandez MD based on my observations and the provider's statements to me. 01/20/2019 [facility] EMERGENCY DEPARTMENT Eliud Fernandez MD 01/20/[address] RELATIONS ADVISER documented in this encounter Plan of Treatment Upcoming Encounters Date Type Specialty Care Team Description 12/20/2021 Office Visit Wound Care Luis Camara DPM [address] [place] [address] (Wo rk) 01/21/2022 Office Visit Gastroenterology Amita Juanis M [address] [place] [address] Luis Fernando Miles MD [address] [facility] [address] [place], [place] [address] documented as of this encounter Procedures Procedure Name Priority Date/Time Associated Comments Diagnosis XR ANKLE RIGHT 2 VIEWS STAT 01/20/2019 10:24 R esults for this PM WORKPLACE RELATIONS ADVISER procedure are i n the results section. CBC WITH PLATELETS & STAT 01/20/2019 8:35 PM R esults for this DIFFERENTIAL WORKPLACE RELATIONS ADVISER procedure are i n the results section. LIPASE STAT 01/20/2019 8:35 PM Results f or this WORKPLACE RELATIONS ADVISER procedure are i n the results section. COMPREHENSIVE STAT 01/20/2019 8:35 PM Results for this METABOLIC PANEL WORKPLACE RELATIONS ADVISER procedure ar e in the results section. ETHYL ALCOHOL LEVEL STAT 01/20/2019 8:35 PM Re sults for this WORKPLACE RELATIONS ADVISER procedure are i n the results section. documented in this encounter Results XR Ankle Right 2 Views (01/20/2019 10:24 PM WORKPLACE RELATIONS ADVISER) Anatomical Region Laterality Modality Leg, Ankle, Foot Right Digital Radiography Specimen (Source) Anatomical Collection Method Collection Time Re ceived Time Location / / Volume Laterality 01/20/2019 10:16 PM WORKPLACE RELATIONS ADVISER Impressions 01/20/2019 10:37 PM WORKPLACE RELATIONS ADVISER IMPRESSION: There is a region of lucency medial talar dome. This suggests osteochondral injury. Degenerative canales es in the ankle joint. No acute fracture or dislocation. Previous internal fixation of the anterior calcaneus. Narrative 01/20/2019 10:37 PM WORKPLACE RELATIONS ADVISER EXAM: XR ANKLE RT 2 VW LOCATION: [facility] DATE/TIME: 01/20/2019 10:16 PM INDICATION: Ankle swelling. COMPARISON: None. Procedure Note Durga Fuentes MD - 01/20/2019Formkarina jones of this note might be different from the original. EXAM: XR ANKLE RT 2 VW LOCATION: [facility] DATE/TIME: 01/20/2019 10:16 PM INDICATION: Ankle swelling. COMPARISON: None. IMPRESSION: There is a region of lucency medial talar dome. This suggests osteochondral injury. Degenerative changes in the ankle joint. No acute fracture or dislocation. Previous internal fixation of the anterior calcaneus. Eliud Fernandez MD IMG DIAGNOSTIC IMAGING ORDERABLES (ABNORMAL) Alcohol ethyl (01/20/2019 8:35 PM WORKPLACE RELATIONS ADVISER) athologist Signature Ethanol g/dL 0.41 (HH) <0.01 g/dL 01/20/2019 [place] 10:[address] [facility] Comment: Specimen run with a dilution Critical Value called to and read back Margo DAVID (ERA) ON 01.20.2019 AT 2218 B Y VL Specimen Anatomical Collection Method Collection Time Receive d Time (Source) Location / / Volume Laterality Blood specimen 01/20/2019 8:35 PM 019 9:23 (specimen) WORKPLACE RELATIONS ADVISER PM WORKPLACE RELATIONS ADVISER Eliud Fernandez MD LAB - BLOOD ORDERABLES Performing Organization Address City/State/ZIP Code Phon e Number M [facility] [address] [place] [address] [facility] [address] [place] [address], U [phone] (ABNORMAL) Comprehensive metabolic panel (01/20/2019 8:35 PM WORKPLACE RELATIONS ADVISER) athologist Signature Sodium 143 133 - 144 01/20/2019 [place] mmol/L 10:[address] [facility] Potassium 3.9 3.4 - 5.3 01/20/2019 [place] mmol/L 10:[address] [facility] Comment: Specimen slightly hemolyzed, po tassium may be falsely elevated Chloride 106 94 - 109 mmol/L 01/20/2019 10:19 PM [facility] [place] Carbon Dioxide 29 20 - 32 mmol/L 01/20/2019 10:19 PM [facility] Anion Gap 8 3 - 14 mmol/L 01/20/2019 10:19 PM [facility] Glucose 98 70 - 99 mg/dL 01/20/2019 10:19 PM [facility] Urea Nitrogen 6 (L) 7 - 30 mg/dL 01/20/2019 10:19 PM LUIS ALBERTO RVIESebastian [facility] Creatinine 0.61 0.52 - 1.04 mg/dL 01/20/2019 10:19 PM [facility] GFR Estimate >90 >60 01/20/2019 10:19 PM [facility] mL/min/{1.73_m2} [facility] Comment: Non GFR Calc Starting 02/03/2018, serum creatinine ba sed estimated GFR (eGFR) will be calculated using the Chronic Kidney Dise [facility] Epidemiology Collaboration (CKD-EPI) equation. GFR Estimate If >90 >60 mL/min/{1.73_m2} 01/20/2019 10:19 PM [facility] Comment: GFR Calc Starting 02/03/2018, serum creatinine ba sed estimated GFR (eGFR) will be calculated using the Chronic Kidney Dise [facility] Epidemiology Collaboration (CKD-EPI) equation. Calcium 8.9 8.5 - 10.1 01/20/2019 10:19 PM [facility] mg/dL [facility] Bilirubin Total 0.9 0.2 - 1.3 mg/dL 01/20/2019 10:19 P M [facility] Albumin 3.9 3.4 - 5.0 g/dL 01/20/2019 10:19 PM [facility] Protein Total 8.8 6.8 - 8.8 g/dL 01/20/2019 10:19 PM [facility] Alkaline Phosphatase 117 40 - 150 U/L 01/20/2019 10:19 PM [facility] ALT 117 (H) 0 - 50 U/L 01/20/2019 10:19 PM [facility] AST 158 (H) 0 - 45 U/L 01/20/2019 10:19 PM [facility] Comment: Specimen is hemolyzed which can falsely elevate AST. Analysis of a non-hemolyzed specimen may result in a l ower value. Specimen Anatomical Collection Method Collection Time Receive d Time (Source) Location / / Volume Laterality Blood specimen 01/20/2019 8:35 PM 019 9:23 (specimen) WORKPLACE RELATIONS ADVISER PM WORKPLACE RELATIONS ADVISER Eliud Fernandez MD LAB - BLOOD ORDERABLES Performing Organization Address City/State/ZIP Code Phon e Number M [facility] [address] [place] [address] [phone] [facility] [address] [place] [address], [place] [phone] Lipase (01/20/2019 8:35 PM WORKPLACE RELATIONS ADVISER) P athologist Signature Lipase 334 73 - 393 01/20/2019 [place] U/L 10:[address] [facility] Specimen Anatomical Collection Method Collection Time Receive d Time (Source) Location / / Volume Laterality Blood specimen 01/20/2019 8:35 PM 019 9:23 (specimen) WORKPLACE RELATIONS ADVISER PM WORKPLACE RELATIONS ADVISER Eliud Fernandez MD LAB - BLOOD ORDERABLES Performing Organization Address City/State/ZIP Code Phon e Number M [facility] [address] [place] [address] 95 [phone] [facility] [address] [place] [address], [place] [phone] (ABNORMAL) CBC with platelets differential (01/20/2019 8:35 PM WORKPLACE RELATIONS ADVISER) Patholo gist Method Time Signature WBC 4.0 4.0 - 01/20/2019 [place] 11.0 9:28 PM [facility] 10e9/L [facility] RBC Count 4.55 3.8 - 5.2 01/20/2019 [place] 10e12/L 9:28 PM [facility] Hemoglobin 14.7 11.7 - 01/20/2019 [place] 15.7 g/dL 9:28 PM [facility] Hematocrit 44.7 35.0 - 01/20/2019 [place] 47.0 % 9:28 PM [facility] MCV 98 78 - 100 01/20/2019 [place] fl 9:28 PM [facility] Absolute 0.0 01/20/2019 [place] Nucleated RBC 9:28 PM WORKPLACE RELATIONS ADVISER [facility] Specimen Anatomical Collection Method Collection Time Receive d Time (Source) Location / / Volume Laterality Blood specimen 01/20/2019 8:35 PM 019 9:23 (specimen) WORKPLACE RELATIONS ADVISER PM WORKPLACE RELATIONS ADVISER Eliud Fernandez MD LAB - BLOOD ORDERABLES Performing Organization Address City/State/ZIP Code Phon e Number M [place] [address] [address] [place], [place] [address] [facility] [address] [place], [place] [address] [phone] documented in this encounter Visit Diagnoses Diagnosis [...] chloride BOLUS New Bag 01/20/2019 11:57 PM WORKPLACE RELATIONS ADVISER 500 mLs 500 mL/hr Intravenous, 500 mL, ONCE, at 500 mL/hr, Administer over 1 Hours, On Fri01/20/19 at 2332, For 1 dose buprenorphine HCl-naloxone HCl (SUBOXONE) Given 01/20/2019 10:33 PM WORKPLACE RELATIONS ADVISER 1 Film 8-2 MG per film 1 Film 1 Film, Sublingual, ONCE, On Fri01/20/19 at 2135, For 1 dose documented in this encounter Active and Recently Administered Medications Times are shown in WORKPLACE RELATIONS ADVISER. Scheduled Medication Order 01/19/2019 01/20/2019 01/21/2019 0.9% [...] documented as of this encounter Care Teams Maritime Officer Relationship Specialty Start Date End Date Clinic, [facility] PCP - General 01/20/18 06/28/21 [address] [place], [place] [phone] Tatyana Haas, FITNESS AND WELLNESS COORDINATOR CAN RECONDITIONER Assigned PCP 08/02/18 01/29/20 [place] [facility] [address] [facility] [address] [place] [address] documented as of this encounter
--- OUTSIDE RECORDS SUMMARY | 2021-12-05 19:22 | XMS_ITS | Encounter Summary ---
:1980 Author Organization [place] Address [facility]ly [facility] [place] [address] Care Team Providers Name Role Phone Clinic, [facility] Primary Care Provide r Waldo Tatyana N FUEL TRUCK DRIVER DEHYDROGENATION CONVERTER OPERATOR Unavailable [phone] Reason for Visit Reason Onset Date Comments No Show 12/22/2018 Encounter Details Date Type Department Care Team Description 12/22/2018 [facility] ( Primary [facility] [place] FARZANA Alvarez DEHYDROGENATION CONVERTER OPERATOR [address] [place] [address] [place] [address] 700 [address] [place] [address] [phone] Social History Tobacco Use Types Packs/Day Years Used Date Smoking Tobacco: Every Day Cigarettes 0.3 10 Smokeless Tobacco: Never Comments: 5-8 cigarettes a day Alcohol Use Standard Drinks/Week Comments Not Currently 0 (1 standard drink = 0.6 oz pure alcoho l) sober 16 days Sex Assigned at Date Recorded Female 01/14/2020 10:57 AM ODD PIECE CHECKER documented as of this encounter Progress Notes Alexander Linda MA - 12/22/2018 10:00 AM CST This patient was a no show for this scheduled appointment. PIECE CHECKER documented in this encounter Plan of Treatment Upcoming Encounters Date Type Specialty Care Team Description 12/20/2021 Office Visit Wound Care Luis Camara DPM [address] [place], [place] [address] (Wo rk) 01/21/2022 Office Visit Gastroenterology Juanis Levi [address] [place] [phone] Luis Fernando Miles MD [address] [facility] [address] [place], [place] [address] documented as of this encounter Visit Diagnoses Diagnosis NO SHOW - Primary documented in this encounter Additional Health Concerns Assessment Noted Time PHQ-9 Depression Total Score: 10 07/08/2018 1:27 PM CD T documented as of this encounter Care Teams Mortar Mixer Relationship Specialty Start Date End Date Clinic, [facility] PCP - General 01/20/18 06/28/[address] [place] [address] Tatyana Haas APRN DEHYDROGENATION CONVERTER OPERATOR Assigned PCP 08/02/18 01/29/20 [facility] [address] [facility] [address] [place] [address] documented as of this encounter
--- OUTSIDE RECORDS SUMMARY | 2021-12-05 19:22 | XMS_ITS | Encounter Summary ---
:1980 Author Organization [place] Address [facility] [place] [address] Care Team Providers Name Role Phone Clinic, [facility] Primary Care Provide r Tatyana Haas DAMAGE APPRAISER CHIEF ENGINEER DRILLING AND RECOVERY Unavailable [phone] Stephani Pina DAMAGE APPRAISER CHIEF ENGINEER DRILLING AND RECOVERY Unavailable [phone] Tatyana Haas DAMAGE APPRAISER CHIEF ENGINEER DRILLING AND RECOVERY Unavailable [phone] Stephani Pina DAMAGE APPRAISER CHIEF ENGINEER DRILLING AND RECOVERY Unavailable [phone] Juanis Levi Primary Care Provider Elsa Yeh RN Unavailable Unavailable Rogelio Treadwell MD Unavailable [phone] Luis Camara DPM Unavailable [phone] Camryn Christina MD Unavailable Sintia Lange PA-C Unavailable Luis Fernando Miles MD Unavailable [phone] Reason for Visit Reason Onset Date Comments MH/CD Inpatient 01/11/2020 Encounter Details Date Type Department Care Team Description 01/11/2020 Telephone [facility] Generic, Behavioral MH/ CD Inpatient Behavioral Health In abigail Rivera MD [address] [place] [address] Social History Tobacco Use Types Packs/Day Years Used Date Smoking Tobacco: Every Day Cigarettes 0.3 10 Smokeless Tobacco: Never Comments: 5-8 cigarettes a day Alcohol Use Standard Drinks/Week Comments Yes 0 (1 standard drink = 0.6 oz pure alcoho l) drinking a pint of vodka daily Sex Assigned at Date Recorded Female 01/14/2020 10:57 AM BOXING TRAINER COVID-19 Exposure Response Date Recorded In the last month, have you been in contact with No / Unsure 01/11/2020 8:00 PM BOXING TRAINER someone who was confirmed or suspected to have Coronavirus / COVID-19? documented as of this encounter Miscellaneous Notes Telephone Encounter - Rocio Messer - 01/11/2020 10:22 PM CST S: Pt is a 39 yr old fem in [place] ED for detox from alcohol report by [...] and ready for behavioral bed placement: Yes NG TRAINER documented in this encounter Plan of Treatment Upcoming Encounters Date Type Specialty Care Team Description 12/20/2021 Office Visit Wound Care Luis Camara DPM [address] [place] [address] (Wo rk) 01/21/2022 Office Visit Gastroenterology Juanis Levi [address] [place] [address] Luis Fernando Miles MD [address] [facility] [address] [place], [place] [address] documented as of this encounter Visit Diagnoses Not on filedocumented in this encounter Additional Health Concerns Infection Onset Date Last Indicated Resolved Time MRSAComment: Added from external infection. 11/07/201406/18 Assessment Noted Time PHQ-9 Depression Total Score: 6 12/27/2019 9:38 AM BOXING TRAINER documented as of this encounter Care Teams Profile Mill Operator Tape Control Relationship Specialty Start Date End Date Clinic, [facility] PCP - General 01/20/[address] [id number] Juanis Levi PCP - General Addiction Medicine 06/29/21 [address] [place] [phone] Tatyana Haas, Assigned PCP 08/02/18 01/29/20 DAMAGE APPRAISER CHIEF ENGINEER DRILLING AND RECOVERY [facility] [address] [facility] [address] [place] [address] Stephani Pina, Assigned PCP 01/30/20 12/30/20 DAMAGE APPRAISER CHIEF ENGINEER DRILLING AND RECOVERY [address] [facility] [address] [place], [place] [address] Tatyana Haas, Assigned PCP 12/31/20 02/24/21 DAMAGE APPRAISER CHIEF ENGINEER DRILLING AND RECOVERY [facility] [address] [facility] [address] [place] [address] Stephani Pina, Assigned PCP 02/25/21 DAMAGE APPRAISER CHIEF ENGINEER DRILLING AND RECOVERY [address] [place] [address] Elsa Yeh, Registered Nurse Infectious Diseases 07/25/21 Rogelio Wilson Assigned Musculoskeletal 08/04/21 MD August Provider [address] [place], [place] [id number] Luis Camara MD Podiatry 08/16/21 CALVIN Burnett [address] [facility] [address] Camryn Christina Assigned Surgical 09/01/21 09/07/21 MD Lexie Provider [address] [facility] [address] [place] [address] Sintia Lange PA-C Assigned Surgical 09/08/21 [address] [facility] 4TH [place] [address] Landon Warren MD Gastroenterology 11/21/21 MD Luis Fernando [address] [facility] [address] [place] [address] documented as of this encounter
--- OUTSIDE RECORDS SUMMARY | 2021-12-05 19:22 | XMS_ITS | Encounter Summary ---
:1980 Author Organization [place] Address [address] [facility] [address] Care Team Providers Name Role Phone Clinic, [facility] Primary Care Provide r Tatyana Haas APRN INSPECTION AND TESTING SUPERVISOR Unavailable [phone] Reason for Referral Mental Health Outpatient (Routine) - Closed Specialty Diagnoses / Procedures Referred By Contact Refer red To Contact Diagnoses Moderate major depression (H) Current every day smoker Uncomplicated opioid dependence (H) Stephani Pina APRN CNP [address] [place], [place] [address] Referral ID Status Reason Start Date Expiration Date Visits Requ ested Visits Authorized [id number] Closed 01/28/2020 01/27/2021 1 1 STANCE 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 Reason for Visit Reason Comments Establish Care Encounter Details Date Type Department Care Team Description [facility] Moderate major depression (H) (Primary Dx); Clinic Ashly Alvarez APRN CNP Alcohol abuse, continuous; [address] Current every day smoker; [address] Uncomplicated opioid dependence (H) [place] [address] [phone] Social History Tobacco Use Types Packs/Day Years Used Date Smoking Tobacco: Every Day Cigarettes 0.3 10 Smokeless Tobacco: Never Comments: 5-8 cigarettes a day Alcohol Use Standard Drinks/Week Comments Not Currently 0 (1 standard drink = 0.6 oz pure alcoho l) sober 16 days Sex Assigned at Date Recorded Female 01/14/2020 10:57 AM ASSISTANCE 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 COVID-19 Exposure Response Date Recorded In the last month, have you been in contact with No / Unsure 01/11/2020 8:00 PM ASSISTANCE 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 someone who was confirmed or suspected to have Coronavirus / COVID-19? documented as of this encounter Patient Instructions Patient InstructionsYovani Stephanidelon Alvarez, FARZANA INSPECTION AND TESTING SUPERVISOR - 12/27/2019 9:40 AM ASSISTANCE 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 Images from the original note were not [...] or use alcohol to avoid such symptoms. Seaters last reviewed this educational content on 03/20/2016 ?? [phone] [employer]. [address] [place] [address]. All rights reserved. This information is not [...] manage those feelings. ?? Community reinforcement approach (LEGAL TECHNICIAN). This therapy uses vouchers help you follow [...] encourage you to drink or use drugs.? [place] support groups. These groups are run voluntarily [...] behavioral change through participation in 12-step programs. Seaters last reviewed this educational content on 03/20/2016 ?? [phone] [employer]. [address] [place] [address], [place] [address]. All rights reserved. This information is not [...] you can. Go to a movie, ballgame, scientologist service, or social event. Talk openly with [...] can cause other physical and emotional problems. Seaters last reviewed this educational content on 01/17/2019 ?? [phone] [employer]. [address] [place] [address]. All rights reserved. This information is not intended as a substitute for professional medical care. Always follow your healthcare professional's instructions. STANCE 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 documented in this encounter Progress Notes Stephani [...] be resent to: Send to e-mail at: [email or web address] Will anyone else be joining your video [...] follow-ups on file. Stephani Pina APRN CNP [facility] Video-Visit Details Type of service: Video Visit Video End Time:10:08 AM Originating Location (pt. Location): Home Distant Location (provider location): [facility] [place] Platform used for Video Visit: JoanaAgilOne STANCE 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 documented in this encounter Plan of Treatment Upcoming Encounters Date Type Specialty Care Team Description 12/20/2021 Office Visit Wound Care Luis Camara DPM [address] [place] [address] (Wo rk) 01/21/2022 Office Visit Gastroenterology Juanis Levi [address] [place] [address] Luis Fernando Miles MD [address] [facility] [address] [place] [address] Scheduled Referrals Name Type Priority Associated Diagnoses Order S [facility] MENTAL HEALTH REFERRAL - Referral Routine [...] Depression Total Score: 6 12/27/2019 9:38 AM ASSISTANCE 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 documented as of this encounter Care Teams Surgical Consultant Relationship Specialty Start Date End Date Clinic, [facility] PCP - General 01/20/18 06/28/[address] [place] [address] Tatyana Haas APRN INSPECTION AND TESTING SUPERVISOR Assigned PCP 08/02/18 01/29/20 [facility] [address] [facility] [address] [place], [place] [address] documented as of this encounter
--- OUTSIDE RECORDS SUMMARY | 2021-12-05 19:22 | XMS_ITS | Encounter Summary ---
:1980 Author Organization [place] Address [address] [facility] [place] [address] Care Team Providers Name Role Phone Clinic, [facility] Primary Care Provide r Guerita Haasdia Sanju DRAW PRESS OPERATOR WEEKEND RECEPTIONIST Unavailable [phone] Encounter Details Date Type Department Care [...] at Date Recorded Female 01/14/2020 10:57 AM ELECTRIC TOOL REPAIRER COVID-19 Exposure Response Date Recorded In the last month, have you been in contact with No / Unsure 12/27/2019 7:20 AM ELECTRIC TOOL REPAIRER someone who was confirmed or suspected to have Coronavirus / COVID-19? documented as of this encounter Plan of Treatment Upcoming Encounters Date Type Specialty Care Team Description 12/20/2021 Office Visit Wound Care Luis Camara DPM [address] [place] [address] (Wo rk) 01/21/2022 Office Visit Gastroenterology Juanis Levi [address] [place] [address] Luis Fernando Miles MD 6 [facility] [place], [place] [address] documented as of this encounter Visit Diagnoses Not on filedocumented in this encounter Additional Health Concerns Assessment Noted Time PHQ-9 Depression Total Score: 6 12/27/2019 9:38 AM ELECTRIC TOOL REPAIRER documented as of this encounter Care Teams Range Mechanic Relationship Specialty Start Date End Date Clinic, [facility] PCP - General 01/20/18 06/28/[address] [place] [address] Tatyana Haas APRN WEEKEND RECEPTIONIST Assigned PCP 08/02/18 01/29/20 [facility] [address] [facility] [address] [place] [address] documented as of this encounter
--- OUTSIDE RECORDS SUMMARY | 2021-12-05 19:22 | XMS_ITS | Encounter Summary ---
:1980 Author Organization [place] Address [address] [facility] 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 documented as of this encounter Plan of Treatment Upcoming Encounters Date Type Specialty Care Team Description 12/20/2021 Office Visit Wound Care Luis Camara DPM [address] [place], [place] [address] (Wo rk) 01/21/2022 Office Visit Gastroenterology Juanis Levi [address] [place] [address] Luis Fernando Miles MD [address] [facility] [address] [place] [address] documented as of this encounter Visit Diagnoses Not on filedocumented in this encounter Additional Health Concerns Assessment Noted Time PHQ-9 Depression Total Score: 10 07/08/2018 1:27 PM CD T documented as of this encounter Care Teams Shaker Repairer Relationship Specialty Start Date End Date Clinic, [facility] PCP - General 01/20/18 06/28/21 [facility] [place] [phone] Tatyana Haas APRN EXPERIMENTAL MACHINING LAB MANAGER Assigned PCP 08/02/18 01/29/20 [place] [facility] [address] [facility] [address] [place] [address] documented as of this encounter
--- OUTSIDE RECORDS SUMMARY | 2021-12-05 19:22 | XMS_ITS | Encounter Summary ---
:[address] [place] [address] [facility]0 [facility] [place] [address] Care Team Providers Name Role Phone Clinic, [facility] Primary Care Provide r Tatyana Haas Sanju SAFETY ENGINEER DIRECTOR DIGITAL MARKETING Unavailable [phone] Reason for Visit Reason Onset Date Comments No Show 02/16/2019 Encounter Details Date Type Department Care Team Description 02/16/2019 Office Visit [facility] Chon NO SHOW (P rimary Dx) Clinic Ashly Russ PA-C [address] [place] [address] [place] [address] [address] [facility] [address] [place] [address] [phone] Social History Tobacco Use Types Packs/Day Years Used Date Smoking Tobacco: Every Day Cigarettes 0.3 10 Smokeless Tobacco: Never Comments: 5-8 cigarettes a day Alcohol Use Standard Drinks/Week Comments Not Currently 0 (1 standard drink = 0.6 oz pure alcoho l) sober 16 days Sex Assigned at Date Recorded Female 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 This patient was a no show for this scheduled appointment. ER ASSEMBLER documented in this encounter Plan of Treatment Upcoming Encounters Date Type Specialty Care Team Description 12/20/2021 Office Visit Wound Care Luis Camara DPM [address] [facility] [place], [place] [address] (Wo rk) 01/21/2022 Office Visit Gastroenterology Juanis Levi [address] [place] [phone] Luis Fernando Miles MD [address] [facility] [place] [address] documented as of this encounter Visit Diagnoses Diagnosis NO SHOW - Primary documented in this encounter Additional Health Concerns Assessment Noted Time PHQ-9 Depression Total Score: 10 07/08/2018 1:27 PM CD T documented as of this encounter Care Teams Drywall Professional Relationship Specialty Start Date End Date Clinic, [facility] PCP - General 01/20/18 06/28/[address] [place] [address] Tatyana Haas APRN DIRECTOR DIGITAL MARKETING Assigned PCP 08/02/18 01/29/20 [facility] [address] [facility] [address] [place] [address] documented as of this encounter
--- OUTSIDE RECORDS SUMMARY | 2021-12-05 19:22 | XMS_ITS | Encounter Summary ---
:1980 Author Organization [place] Address [address] [place] [address] Care Team Providers Name Role Phone Clinic, [facility] Primary Care Provide r Tatyana Haas Sanju BLOOD BANK ASSISTANT REEL CUTTER Unavailable [phone] Reason for Visit Reason Comments Alcohol Problem Dizziness Encounter Details Date Type Department Care Team Description 08/23/2018 Emergency [facility] Loan Moise, PAMcC Dizziness; [facility] Emergency EMERGENCY PHYSICIANS Hyp omagnesemia; Dept PA Hypokalemia; [address] Alcohol withdrawal, uncomplicated (H) [place] [address] [phone] Social History Tobacco Use Types Packs/Day Years Used Date Smoking Tobacco: Every Day Cigarettes 0.3 10 Smokeless Tobacco: Never Comments: 5-8 cigarettes a day Alcohol Use Standard Drinks/Week Comments Not Currently 0 (1 standard drink = 0.6 oz pure alcoho l) sober 16 days Sex Assigned at Date Recorded Female 01/14/2020 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 Alcohol Withdrawal (Turkmen)Hypokalemia (Turkmen)Hypomagnesemia, Discharge Instructions (Turkmen)documented in this encounter Medications at Time of [...] current or past drug history. PCP: Esthela, [facility] Medical Review of Systems Constitutional: [...] Prolonged QT Abnormal ECG Rate 80 bpm. W[place] interval 162 ms. QRS duration 94 ms. [...] observations and the provider's statements to me. [facility] EMERGENCY DEPARTMENT Loan Moise PA-C 08/23/182015 documented in this encounter Plan of Treatment Upcoming Encounters Date Type Specialty Care Team Description 12/20/2021 Office Visit Wound Care Luis Camara DPM [address] [place] [address] (Wo rk) 01/21/2022 Office Visit Gastroenterology Juanis Levi [address] [place] [address] Luis Fernando Miles MD [address] [facility] [address] [place] [address] documented as of this encounter [...] Signature HCG Qual Urine Negative NEG^Negati 08/23/2018 [place] ve 12:52 PM CDT [facility] Comment: This test is for screening purposes. ??R esults should be interpreted along with the clinical picture. ??Confirmation te sting is available if warranted by ordering [id number], HCG Quantitative Pregna ncy. Specimen Anatomical Collection Method Collection Time Receive d Time (Source) Location / / Volume Laterality Urine specimen 08/23/2018 12:38 9 (specimen) PM CDT 12:43 PM CDT Loan Moise PA-C LAB - URINE ORDERABLES Performing Organization Address City/State/ZIP Code Phon e Number M [facility] [address] [address] [facility] [address] [address] [facility] [phone] (ABNORMAL) UA with Microscopic (08/23/2018 12:38 PM CDT) Patholo gist Method Time Signature Color Urine Yellow 08/23/2018 [place] 12:49 PM [facility] Appearance Urine Clear 08/23/2018 [facility] 12:49 PM [facility] Glucose Urine Negative NEG^Negat 08/23/2018 [place] paula mg/dL 12:49 PM [facility] Bilirubin Urine Negative NEG^Negat 08/23/2018 [place] paula 12:49 PM [facility] Ketones Urine Negative NEG^Negat 08/23/2018 [place] paula mg/dL 12:49 PM [facility] Specific [place] 1.017 1.003 - 08/23/2018 [place] Urine 1.035 12:49 PM [facility] Blood Urine Negative NEG^Negat 08/23/2018 [place] paula 12:49 PM [facility] pH Urine 7.5 (H) 5.0 - 7.0 08/23/2018 [place] pH 12:49 PM [facility] Protein Albumin Negative NEG^Negat 08/23/2018 [place] Urine paula mg/dL 12:49 PM [facility] Urobilinogen 8.0 (H) 0.0 - 2.0 08/23/2018 [place] mg/dL mg/dL 12:49 PM [facility] Nitrite Urine Negative NEG^Negat 08/23/2018 [place] paula 12:49 PM [facility] Leukocyte Negative NEG^Negat 08/23/2018 [place] Esterase Urine [place]ula 12:49 PM [facility] Source Midstream 08/23/2018 [place] Urine 12:39 PM [facility] WBC Urine <1 0 - 5 08/23/2018 [facility] /HPF 12:49 PM [facility] RBC Urine <1 0 - 2 08/23/2018 [facility] /HPF 12:49 PM [facility] Squamous 1 0 - 1 08/23/2018 [place] Epithelial /HPF /HPF 12:49 PM [facility] Mucous Urine Present (A) NEG^Negat 08/23/2018 [place] paula /LPF 12:49 PM [facility] Specimen (Source) Anatomical Collection Method Collection Time Re ceived Time Location / / Volume Laterality Examination of 08/23/2018 12:38 9 midstream urine PM CDT 12:43 PM CDT specimen (procedure) Loan Moise PA-C LAB - URINE ORDERABLES Performing Organization Address City/State/ZIP Code Phon e Number M [facility] [address] [place], [place] [address] [facility] [address] [place] [address] [place] [address] EKG 12-lead, tracing only (08/23/2018 12:25 PM [...] Signature Sodium 138 133 - 144 08/23/2018 [place] mmol/L 12:43 PM [facility] Potassium 3.1 (L) 3.4 - 5.3 08/23/2018 [place] mmol/L 12:43 PM [facility] Chloride 103 94 - 109 08/23/2018 [place] mmol/L 12:43 PM [facility] Carbon Dioxide 30 20 - 32 08/23/2018 [place] mmol/L 12:50 PM [facility] Anion Gap 4 3 - 14 08/23/2018 [place] mmol/L 12:50 PM [facility] Glucose 123 (H) 70 - 99 08/23/2018 [place] mg/dL 12:50 PM [facility] Urea Nitrogen 5 (L) 7 - 30 08/23/2018 [place] mg/dL 12:50 PM [facility] Creatinine 0.57 0.52 - 08/23/2018 [facility] 1.04 mg/dL 12:50 PM [facility] GFR Estimate >90 >60 08/23/2018 [place] mL/min/{1. 12:50 PM [facility] 73_m2} HOSPITAL Comment: Non GFR Calc Starting 02/03/2018, serum creatinine ba sed estimated GFR (eGFR) will be calculated using the Chronic Kidney Dise ase Epidemiology Collaboration (CKD-EPI) equation. GFR Estimate If >90 >60 mL/min/{1.73_m2} 08/23/2018 12 :50 PM [facility] Comment: GFR Calc Starting 02/03/2018, serum creatinine ba sed estimated GFR (eGFR) will be calculated using the Chronic Kidney Dise ase Epidemiology Collaboration (CKD-EPI) equation. Calcium 8.8 8.5 - 10.1 08/23/2018 12:50 PM [facility] mg/dL [facility] Bilirubin Total 1.6 (H) 0.2 - 1.3 mg/dL 08/23/2018 12:52 P M [facility] Albumin 3.8 3.4 - 5.0 g/dL 08/23/2018 12:52 PM [facility] Protein Total 7.9 6.8 - 8.8 g/dL 08/23/2018 12:52 PM F [facility] Alkaline Phosphatase 158 (H) 40 - 150 U/L 08/23/2018 12:52 PM [facility] ALT 192 (H) 0 - 50 U/L 08/23/2018 12:52 PM [facility] AST 242 (H) 0 - 45 U/L 08/23/2018 12:52 PM [facility] Specimen Anatomical Collection Method Collection Time Receive d Time (Source) Location / / Volume Laterality Blood specimen 08/23/2018 12:22 9 (specimen) PM CDT 12:30 PM CDT Loan Moise PA-C LAB - BLOOD ORDERABLES Performing Organization Address City/State/ZIP Code Phon e Number [place] [address] [address] [facility] [address] [phone] (ABNORMAL) Magnesium (08/23/2018 12:22 PM CDT) P athologist Signature Magnesium 1.4 (L) 1.6 - 2.3 08/23/2018 [place] mg/dL 12:52 PM [facility] Specimen Anatomical Collection Method Collection Time Receive d Time (Source) Location / / Volume Laterality Blood specimen 08/23/2018 12:22 9 (specimen) PM CDT 12:30 PM CDT Loan Moise PA-C LAB - BLOOD ORDERABLES Performing Organization Address City/State/ZIP Code Phon e Number [facility] [address] [place], [place] [address] [facility] [address] [place], [place] [address], [facility] [phone] Alcohol level blood (08/23/2018 12:22 PM CDT) P athologist Signature Ethanol g/dL <0.01 <0.01 g/dL 08/23/2018 [place] 12:52 PM T [facility] Specimen Anatomical Collection Method Collection Time Receive d Time (Source) Location / / Volume Laterality Blood specimen 08/23/2018 12:22 9 (specimen) PM CDT 12:30 PM CDT Loan Moise PA-C LAB - BLOOD ORDERABLES Performing Organization Address [facility]/ZIP Code Phon e Number [facility] [address] [place] [address] [place] [address] [address] [place], [place] [address], [facility] [phone] Troponin I (08/23/2018 12:22 PM CDT) P athologist Signature Troponin I ES <0.015 0.000 - 08/23/2018 [place] 0.045 ug/L 12:54 PM T [facility] Comment: The 99th percentile for upper reference [...] LAB - BLOOD ORDERABLES Performing Organization Address City/[facility]/ZIP Code Phon e Number [facility] [address] [place], [place] [address] [facility] [address] [place] [address], [facility] [phone] (ABNORMAL) CBC with platelets differential (08/23/2018 12:22 PM [facility]) [facility] Method Time Signature WBC 3.1 (L) 4.0 - 08/23/2018 [facility] 11.0 12:33 PM [facility] 10e9/L [facility] RBC Count 4.22 3.8 - 5.2 08/23/2018 [facility] 10e12/L 12:33 [facility] Hemoglobin 13.7 11.7 - 08/23/2018 [facility] 15.7 g/dL 12:33 [facility] Hematocrit 39.6 35.0 - 08/23/2018 [facility] 47.0 % 12:33 [facility] MCV 94 78 - 100 08/23/2018 [facility] fl 12:33 [facility] MCH 32.5 26.5 - 08/23/2018 [facility] 33.0 pg 12:33 [facility] MCHC 34.6 31.5 - 08/23/2018 [facility] 36.5 g/dL 12:33 [facility] RDW 12.3 10.0 - 08/23/2018 [facility] 15.0 % 12:33 [facility] Platelet Count 82 (L) 150 - 450 08/23/2018 [facility] 10e9/L 12:33 [facility] Diff Method Automated 08/23/2018 [facility] Method 12:33 [facility] % Neutrophils 53.1 % 08/23/2018 [facility] 12:33 [facility] % Lymphocytes 34.9 % 08/23/2018 [facility] 12:33 [facility] % Monocytes 10.1 % 08/23/2018 [facility] 12:33 [facility] % Eosinophils 1.3 % 08/23/2018 [facility] 12:33 [facility] % Basophils 0.3 % 08/23/2018 [facility] 12:33 [facility] % Immature 0.3 % 08/23/2018 [facility] Granulocytes 12:33 [facility] Nucleated RBCs 0 0 /100 08/23/2018 [place] 12:33 PM [facility] Absolute 1.6 1.6 - 8.3 08/23/2018 [place] Neutrophil 10e9/L 12:33 PM [facility] Absolute 1.1 0.8 - 5.3 08/23/2018 [place] Lymphocytes 10e9/L 12:33 PM [facility] Absolute 0.3 0.0 - 1.3 08/23/2018 [place] Monocytes 10e9/L 12:33 PM [facility] Absolute 0.0 0.0 - 0.7 08/23/2018 [place] Eosinophils 10e9/L 12:33 PM [facility] Absolute 0.0 0.0 - 0.2 08/23/2018 [place] Basophils 10e9/L 12:33 PM [facility] Abs Immature 0.0 0 - 0.4 08/23/2018 [place] Granulocytes 10e9/L 12:33 PM [facility] Absolute 0.0 08/23/2018 [place] Nucleated RBC 12:33 [facility] Specimen Anatomical Collection Method Collection Time Receive d Time (Source) Location / / Volume Laterality Blood specimen 08/23/2018 12:22 9 (specimen) PM CDT 12:30 PM CDT Loan Moise PA-C LAB - BLOOD ORDERABLES Performing Organization Address City/State/ZIP Code Phon e Number [place] [address] [address] [place] [address] [phone] documented in this encounter Visit Diagnoses Diagnosis [...] documented as of this encounter Care Teams Controls Design Engineer Relationship Specialty Start Date End Date Clinic, [facility] PCP - General 01/20/18 06/28/[address] [place] [address] Tatyana Haas, BLOOD BANK ASSISTANT REEL CUTTER Assigned PCP 08/02/18 01/29/20 [facility] [address] [facility] [address] [place] [address] documented as of this encounter
--- OUTSIDE RECORDS SUMMARY | 2021-12-05 19:22 | XMS_ITS | Encounter Summary ---
:1980 Author Organization [place] Address [facility] [place] [address] Care Team Providers Name Role Phone Clinic, [facility] Primary Care Provide r Tatyana Haas Sanju CALCINE FURNACE TENDER TRENCHING 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 Unavailable [phone] Reason for Visit Reason Comments Alcohol Intoxication Encounter Details Date Type Department Care Team Description 02/28/2019 Emergency [facility] Eliud Manley, Alcohol withdrawal [facility] Emergency MD syndrome without Dept [facility] complication (H) [address] [place], [place] [address] [id number] [address] [address] [place] [address] (Wo rk) Social History Tobacco Use Types Packs/Day Years Used Date Smoking Tobacco: Every Day Cigarettes 0.3 10 Smokeless Tobacco: Never Comments: 5-8 cigarettes a day Alcohol Use Standard Drinks/Week Comments Not Currently 0 (1 standard drink = 0.6 oz pure alcoho l) sober 16 days Sex Assigned at Date Recorded Female 01/14/2020 10:57 AM MECHANICAL DESIGN ENGINEER PRODUCTS documented as of this encounter Last Filed Vital Signs Vital Sign Reading Time Taken Comments Blood Pressure 117/76 02/28/2019 6:30 PM MECHANICAL DESIGN ENGINE[employer]ODUCTS Pulse 92 02/28/2019 6:30 PM MECHANICAL DESIGN ENGINEER [employer]ODUCTS Temperature 37 ??C (98.6 ??F) 02/28/2019 1:43 PM MECHANICAL DESIGN ENGINE[employer]CTS Respiratory Rate 20 02/28/2019 1:43 PM MECHANICAL DESIGN ENGINEER [employer]ODUCTS Oxygen Saturation 99% 02/28/2019 6:30 PM MECHANICAL DESIGN ENGINEER [employer]ODUCTS Inhaled Oxygen Concentration - - Weight 83.6 kg (184 lb 4.9 oz) 02/28/2019 1:43 PM MECHANICAL DESIGN ENGINE[employer] Height - - Body Mass Index 29.75 07/04/2018 9:43 PM CDT documented in this encounter Discharge Instructions Discharge InstructionsEliud Manley MD - 02/28/2019 5:37 PM MECHANICAL DESIGN ENGINEER [employer]ODUCTS Please proceed to detox and follow-up with alcohol counseling when released. Please return to the emergency department as needed for new or worsening symptoms including thoughtsof self-harm or suicide, thoughts of harming other people, any other concerning symptoms. ANICAL DESIGN ENGINEER [employer]ODUCTS documented in this encounter Medications at Time [...] Pt states last drink was 1300 today ANICAL DESIGN ENGINEER [employer]ODUCTS Eliud Manley MD - 02/28/2019 1:33 PM [...] Past Surgical History: Breast surgery section x2 APPRAISER IRRIGATION TAX Surgery Orthopedic surgery Thoracic surgery Family History: [...] and subsequently transported in stable condition.Patient and [id number] counseled on results, diagnosis and disposition. They [...] provider's statements to me. Mahsa Walsh 02/28/2019 [facility] EMERGENCY DEPARTMENT Eliud Manley MD 03/02/19 2143 ANICAL DESIGN ENGINEER [employer]ODUCTS documented in this encounter Plan of Treatment Upcoming Encounters Date Type Specialty Care Team Description 12/20/2021 Office Visit Wound Care Luis Camara DPM [address] [place] [address] (Wo rk) 01/21/2022 Office Visit Gastroenterology Juanis Levi [address] [place] [address] Luis Fernando Miles MD [address] [facility] [place] [address] documented as of this encounter Procedures Procedure Name Priority Date/Time Associated Comments Diagnosis XR CHEST 2 VIEWS STAT 02/28/2019 4:29 PM Resul ts for this MECHANICAL DESIGN ENGINEER [employer]ODUCTS procedure are i n the results section. CBC WITH PLATELETS & STAT 02/28/2019 3:57 PM R esults for this DIFFERENTIAL MECHANICAL DESIGN ENGINEER [employer]ODUCTS procedure are i n the results section. INR STAT 02/28/2019 3:57 PM Results f or this MECHANICAL DESIGN ENGINEER [employer] procedure are i n the results section. LIPASE STAT 02/28/2019 3:57 PM Results f or this MECHANICAL DESIGN ENGINEER [employer]ODU[employer] procedure are i n the results section. COMPREHENSIVE STAT 02/28/2019 3:57 PM Results for this METABOLIC PANEL MECHANICAL DESIGN ENGINEER [employer]ODUCTS procedure ar e in the results section. ETHYL ALCOHOL LEVEL STAT 02/28/2019 3:57 PM Re sults for this MECHANICAL DESIGN ENGINEER [employer] procedure are i n the results section. documented in this encounter Results XR Chest 2 Views (02/28/2019 4:29 PM MECHANICAL DESIGN ENGINE[employer]) Anatomical Region Laterality Modality Chest Digital Radiography Specimen (Source) Anatomical Location Collection Method / Collectio n Time Received Time / Laterality Volume Impressions 02/28/2019 6:42 PM MECHANICAL DESIGN ENGINE[employer] IMPRESSION: No evidence of acute cardiopulmonary disease is seen. CAIO TERRAZAS MD Narrative 02/28/2019 6:42 PM MECHANICAL DESIGN ENGINEER [employer]ODUCTS CHEST TWO VIEW ?? 02/28/2019 4:29 PM [...] IMAGING ORDER JEFFERY INR (02/28/2019 3:57 PM MECHANICAL DESIGN ENGINE[employer]) athologist Signature INR 0.92 0.86 - 1.14 02/28/2019 [facility] 4:34 PM [facility] Specimen Anatomical Collection Method Collection Time Receive d Time (Source) Location / / Volume Laterality Blood specimen 02/28/2019 3:57 PM 020 4:05 (specimen) MECHANICAL DESIGN ENGINEER [employer]ODU[employer] PM MECHANICAL DESIGN ENGINEER [employer]ODUCTS Eliud Manley MD LAB - BLOOD ORDERABLES Performing Organization Address [facility] Phon e Number [facility] [address] [place], [place] [address] [facility] [address] [address], [facility] [phone] (ABNORMAL) Alcohol ethyl (02/28/2019 3:57 PM MECHANICAL DESIGN ENG[employer]) athologist Signature Ethanol g/dL 0.22 (H) <0.01 g/dL 02/28/2019 [facility] 4:34 PM [facility] Specimen Anatomical Collection Method Collection Time Receive d Time (Source) Location / / Volume Laterality Blood specimen 02/28/2019 3:57 PM 020 4:05 (specimen) MECHANICAL DESIGN ENGINE[employer] PM MECHANICAL DESIGN ENGINEER [employer] Eliud Manley MD LAB - BLOOD ORDERABLES Performing Organization Address [facility] Phon e Number [facility] [address] [place], [place] [address] [facility] [address] [place], [place] [address], [facility] [phone] Lipase (02/28/2019 3:57 PM MECHANICAL DESIGN ENG[employer]) athologist Signature Lipase 145 73 - 393 02/28/2019 [facility] U/L 4:34 PM [facility] Specimen Anatomical Collection Method Collection Time Receive d Time (Source) Location / / Volume Laterality Blood specimen 02/28/2019 3:57 PM 020 4:05 (specimen) MECHANICAL DESIGN ENGINEER [employer]ODU[employer] PM MECHANICAL DESIGN ENGINEER [employer]ODUCTS Eliud Manley MD LAB - BLOOD ORDERABLES Performing Organization Address City/[facility] Phon e Number [facility] [address] [place], [place] [address] [facility] [address] [place], [place] [address] [phone] (ABNORMAL) Comprehensive metabolic panel (02/28/2019 3:57 PM [facility]) athologist Signature Sodium 140 133 - 144 02/28/2019 [facility] [facility] mmol/L 4:25 PM [facility] Potassium 3.7 3.4 - 5.3 02/28/2019 [facility] mmol/L 4:25 PM [facility] Chloride 106 94 - 109 02/28/2019 [facility] mmol/L 4:25 PM [facility] Carbon Dioxide 28 20 - 32 02/28/2019 [facility] mmol/L 4:32 PM [facility] Anion Gap 6 3 - 14 02/28/2019 [facility] mmol/L 4:32 PM [facility] Glucose 156 (H) 70 - 99 02/28/2019 [facility] mg/dL 4:32 PM [facility] Urea Nitrogen 9 7 - 30 02/28/2019 [facility] mg/dL 4:32 PM [facility] Creatinine 0.72 0.52 - 02/28/2019 [facility] 1.04 mg/dL 4:32 PM [facility] GFR Estimate >90 >60 02/28/2019 [facility] mL/min/{1. 4:32 PM [facility] 73_m2} HOSPITAL Comment: Non GFR Calc Starting 02/03/2018, serum creatinine ba sed estimated GFR (eGFR) will be calculated using the Chronic Kidney Dise [facility] Epidemiology Collaboration (CKD-EPI) equation. GFR Estimate If >90 >60 mL/min/{1.73_m2} 02/28/2019 4: 32 PM [facility] Comment: GFR Calc Starting 02/03/2018, serum creatinine ba sed estimated GFR (eGFR) will be calculated using the Chronic Kidney Dise [facility] Epidemiology Collaboration (CKD-EPI) equation. Calcium 8.8 8.5 - 10.1 02/28/2019 4:32 PM [facility] IDGES mg/dL [facility] Bilirubin Total 0.5 0.2 - 1.3 mg/dL 02/28/2019 4:34 PM [facility] Albumin 3.8 3.4 - 5.0 g/dL 02/28/2019 4:[address] [facility] Protein Total 8.5 6.8 - 8.8 g/dL 02/28/2019 4:34 PM [facility] Alkaline Phosphatase 155 (H) 40 - 150 U/L 02/28/2019 4:34 PM [facility] ALT 137 (H) 0 - 50 U/L 02/28/2019 4:34 PM [facility] AST 194 (H) 0 - 45 U/L 02/28/2019 4:34 PM [facility] Specimen Anatomical Collection Method Collection Time Receive d Time (Source) Location / / Volume Laterality Blood specimen 02/28/2019 3:57 PM 020 4:05 (specimen) MECHANICAL DESIGN ENGINE[employer] PM MECHANICAL DESIGN ENGINEER [employer]ODUCTS Eliud Manley MD LAB - BLOOD ORDERABLES Performing Organization Address City/State/ZIP Code Phon e Number [place] [address] [address] [place] [address] [facility] [facility] [address] [phone] (ABNORMAL) CBC with platelets differential (02/28/2019 3:57 PM [facility]) [facility] Method Time Signature WBC 2.3 (L) 4.0 - 02/28/2019 [facility] 11.0 4:11 PM [facility] 10e9/L [facility] RBC Count 4.22 3.8 - 5.2 02/28/2019 [facility] 10e12/L 4:11 PM [facility] Hemoglobin 14.1 11.7 - 02/28/2019 [facility] 15.7 g/dL 4:11 PM [facility] Hematocrit 41.7 35.0 - 02/28/2019 [facility] 47.0 % 4:11 PM [facility] MCV 99 78 - 100 02/28/2019 [facility] fl 4:11 PM [facility] MCH 33.4 (H) 26.5 - 02/28/2019 [facility] 33.0 pg 4:11 PM [facility] MCHC 33.8 31.5 - 02/28/2019 [facility] 36.5 g/dL 4:11 PM [facility] RDW 13.0 10.0 - 02/28/2019 [facility] 15.0 % 4:11 PM [facility] Platelet Count 96 (L) 150 - 450 02/28/2019 [facility] 10e9/L 4:11 PM [facility] Diff Method Automated 02/28/2019 [facility] Method 4:11 PM [facility] % Neutrophils 62.0 % 02/28/2019 [facility] 4:11 PM [facility] % Lymphocytes 32.8 % 02/28/2019 [facility] 4:11 PM [facility] % Monocytes 3.5 % 02/28/2019 [facility] 4:11 PM [facility] % Eosinophils 0.4 % 02/28/2019 [facility] 4:11 PM [facility] % Basophils 0.9 % 02/28/2019 [facility] 4:11 PM [facility] % Immature 0.4 % 02/28/2019 [facility] Granulocytes 4:11 PM [facility] Nucleated RBCs 0 0 /100 02/28/2019 [facility] 4:11 PM [facility] Absolute 1.4 (L) 1.6 - 8.3 02/28/2019 [facility] Neutrophil 10e9/L 4:11 PM [facility] Absolute 0.8 0.8 - 5.3 02/28/2019 [facility] Lymphocytes 10e9/L 4:11 PM [facility] Absolute 0.1 0.0 - 1.3 02/28/2019 [facility] Monocytes 10e9/L 4:11 PM [facility] Absolute 0.0 0.0 - 0.7 02/28/2019 [facility] Eosinophils 10e9/L 4:11 PM [facility] Absolute 0.0 0.0 - 0.2 02/28/2019 [facility] Basophils 10e9/L 4:11 PM [facility] Abs Immature 0.0 0 - 0.4 02/28/2019 [facility] Granulocytes 10e9/L 4:11 PM [facility] Absolute 0.0 02/28/2019 [facility] Nucleated RBC 4:11 PM [facility] Specimen Anatomical Collection Method Collection Time Receive d Time (Source) Location / / Volume Laterality Blood specimen 02/28/2019 3:57 PM 020 4:05 (specimen) MECHAN[employer] DES[employer] PM MECHANICAL DESIGN ENGINE[employer]ODU[employer] Eliud Manley MD LAB - BLOOD ORDERABLES Performing Organization Address City/State/ZIP Code Phon e Number [facility] [address] [place], [place] [address] [facility] [address] [place], [place] [address] [address] [phone] documented in this encounter Visit Diagnoses Diagnosis Alcohol withdrawal syndrome without comp lication (H) documented in this encounter Administered Medications Inactive Administered Medications - up to 3 most recent administrations Medication Order MAR Action Action Date Dose Rate Site LORazepam (ATIVAN) injection 1 mg Given 02/28/2019 4:10 PM MECH[employer] DESIGN [employer] 1 mg 1 mg, Intravenous, ONCE, On 02/28/19 at 1547, For 1 dose, This drug may cause significant respiratory depression. Monitor respiratory status and vital signs carefully for 1 hour after each dose. oxymetazoline (AFRIN) 0.05 % spray 2 spr ay Given 02/28/2019 4:10 PM MECHANICAL DESIGN ENG[employer] 2 sprays 2 spray, Nasal, ONCE, On 02/28/19 at 1551, For 1 dose, Use for more than 3 consecutive days may cause rebound vasodilation. sodium chloride 0.9 % 1,000 mL with New Bag 02/28/2019 4:19 PM MECHANICAL DESIGN ENG[employer] 1000 mL/hr Infuvite Adult 10 mL, thiamine 100 mg, folic acid 1 mg infusion 1,000 mL, at 1,000 mL/hr, Intravenous, ONCE, 1 dose, On 02/28/19 at 1547 documented in this encounter Active and Recently Administered Medications Times are shown in MECHANICAL DESIGN ENG[employer]. Scheduled Medication Order 02/26/2019 02/27/2019 02/28/2019 LORazepam [...] documented as of this encounter Care Teams Finisher Denture Relationship Specialty Start Date End Date Clinic, [facility] PCP - General 01/20/18 06/28/21 [facility] [place] [address] Tatyana Haas APRN TRENCHING 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 Assigned PCP 08/02/18 01/29/20 [place] [facility] [address] [facility] [address] [place], [place] [id number] documented as of this encounter
--- OUTSIDE RECORDS SUMMARY | 2021-12-05 19:22 | XMS_ITS | Encounter Summary ---
:1980 Author Organization [place] Address [address] [place] [address] Care Team Providers Name Role Phone Clinic, [facility] [place] [facility] Primary Care Provide r Guerita Haasdia Sanju CASTING MOLDER SPECIAL EDUCATION ASSOCIATE Unavailable [phone] Encounter Details Date Type Department Care [...] at Date Recorded Female 01/14/2020 10:57 AM PATTERN WHEEL MAKER documented as of this encounter Plan of Treatment Upcoming Encounters Date Type Specialty Care Team Description 12/20/2021 Office Visit Wound Care Luis Camara DPM [address] [place], [place] [address] (Wo rk) 01/21/2022 Office Visit Gastroenterology Juanis Levi [address] [place] [address] Luis Fernando Miles MD [address] [facility] [address] [place] [address] documented as of this encounter Visit Diagnoses Not on filedocumented in this encounter Additional Health Concerns Assessment Noted Time PHQ-9 Depression Total Score: 10 07/08/2018 1:27 PM CD T documented as of this encounter Care Teams Medical Registrar Relationship Specialty Start Date End Date Clinic, [facility] [place] [facility] PCP - General 01/20/18 06/28/21 [facility], [place] [id number] Tatyana Haas APRN SPECIAL EDUCATION ASSOCIATE Assigned PCP 08/02/18 01/29/20 [place] [facility] [address] [facility] [address] [place] [address] documented as of this encounter
--- OUTSIDE RECORDS SUMMARY | 2021-12-05 19:22 | XMS_ITS | Encounter Summary ---
:1980 Author Organization [place] Address [address] [facility] 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 documented as of this encounter Plan of Treatment Upcoming Encounters Date Type Specialty Care Team Description 12/20/2021 Office Visit Wound Care Luis Camara DPM [address] [place], [place] [address] (Wo rk) 01/21/2022 Office Visit Gastroenterology Juanis Levi [address] [place] [address] Luis Fernando Miles MD [address] [facility] [address] [place], [place] [address] documented as of this encounter Visit Diagnoses Not on filedocumented in this encounter Additional Health Concerns Assessment Noted Time PHQ-9 Depression Total Score: 10 07/08/2018 1:27 PM CD T documented as of this encounter Care Teams Inspector Circuitry Negative Relationship Specialty Start Date End Date Clinic, [facility] PCP - General 01/20/18 06/28/[address] [place] [address] Tatyana Haas APRN SODA JERKER Assigned PCP 08/02/18 01/29/20 [facility] [address] [facility] [address] [place] [address] documented as of this encounter
--- OUTSIDE RECORDS SUMMARY | 2021-12-05 19:23 | XMS_ITS | Encounter Summary ---
:1980 Author Organization [place] Address [facility] [place] [address] Care Team Providers Name Role Phone Clinic, [facility] Primary Care Provide r Reason for Visit Reason Comments Alcohol Problem Palpitations Encounter Details Date Type Department Care Team Description 01/31/2018 - Emergency [facility] Shay Martinez MD Alcoholic intoxication without complicat ion (H); 02/01/2018 [facility] Emergency EMERGENCY Uncomplicat ed opioid dependence (H); Dept [facility] S/P emergency hysterectomy; [address] Slow transit constipation; [place], [place] Major depre ssive disorder, recurrent episode, moderate (H) [id number] [phone] (Wo rk) Social History Tobacco Use Types Packs/Day Years Used Date Smoking Tobacco: Every Day Cigarettes 0.1 10 Smokeless Tobacco: Never Comments: 5 cigarettes a day Alcohol Use Standard Drinks/Week Comments Yes 0 (1 standard drink = 0.6 oz pure alcoho l) binge drinks Sex Assigned at Date Recorded Female 01/14/2020 10:57 AM CODING ASSISTANT documented as of this encounter Last Filed Vital Signs Vital Sign Reading Time Taken Comments Blood Pressure 145/72 01/31/2018 8:16 PM CODING ASSISTANT Pulse - - Temperature 36.1 ??C (97 ??F) 01/31/2018 8:16 PM CODING ASSISTANT Respiratory Rate 18 01/31/2018 8:16 PM CODING ASSISTANT Oxygen Saturation 97% 01/31/2018 8:16 PM CODING ASSISTANT Inhaled Oxygen Concentration - - Weight - [...] as of this encounter ED Notes Tanesha rFost RN - 01/31/2018 8:19 PM CST Patient presents to ED due alcohol problem and palpitations. States I drink a lot and it depends on the stress level. 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 Requesting to go to detox Denies suicidal or homicidal ideation NG ASSISTANT Shay Martinez MD - 01/31/2018 8:12 PM [...] Breast surgery section section, immediate hysterectomy, combined DIESEL ENGINE INSPECTOR surgery Orthopedic surgery Thoracic surgery Family History: [...] Department Course ECG (20:28:51): Rate 89 bpm. NM interval 170. QRS duration 94. QT/QTc 374/455. [...] her father. Patient will be transferred to [facility] via EMS. Discussed the case with the [...] without complication (H) F10.920 Disposition: Transferred to [facility] via EMS. Discharge Medications: Modified buprenorphine 2 MG Subl sublingual tablet Commonly known as: SUBUTEX 2 mg, Sublingual, 2 TIMES DAILY What changed: ?? how much to take ?? how to take this ?? when to take this ?? additional instructions Ezra Chan 01/31/2018 [facility] EMERGENCY DEPARTMENT I, Ezra Chan, am serving as a scribe at 9:09 PM on 01/31/2018 to document services personally performed by Shay Martinez MD based on my observations and the provider's statements to me. Shay Martinez MD 01/31/18 7139 NG ASSISTANT documented in this encounter Plan of Treatment Upcoming Encounters Date Type Specialty Care Team Description 12/20/2021 Office Visit Wound Care Luis Camara DPM [address] [place] [address] (Wo rk) 01/21/2022 Office Visit Gastroenterology Juanis Levi [address] [place] [address] Luis Fernando Miles MD [address] [address] documented as of this encounter Procedures Procedure Name Priority Date/Time Associated Comments Diagnosis CBC WITH PLATELETS & STAT 01/31/2018 9:13 PM R esults for this DIFFERENTIAL CODING ASSISTANT procedure are i n the results section. COMPREHENSIVE STAT 01/31/2018 9:13 PM Results for this METABOLIC PANEL CODING ASSISTANT procedure ar e in the results section. ETHYL ALCOHOL LEVEL STAT 01/31/2018 9:13 PM Re sults for this CODING ASSISTANT procedure are i n the results section. EKG 12-LEAD, TRACING STAT 01/31/2018 8:58 PM R esults for this ONLY CODING ASSISTANT procedure are i n the results section. documented in this encounter Results (ABNORMAL) Comprehensive metabolic panel (01/31/2018 9:13 PM CODING ASSISTANT) P athologist Signature Sodium 141 133 - 144 01/31/2018 [facility] mmol/L 9:45 PM [facility] Potassium 3.5 3.4 - 5.3 01/31/2018 [facility] mmol/L 9:45 PM [facility] Chloride 107 94 - 109 01/31/2018 [facility] mmol/L 9:45 PM [facility] Carbon Dioxide 28 20 - 32 01/31/2018 [facility] mmol/L 9:45 PM [facility] Anion Gap 6 3 - 14 01/31/2018 [facility] mmol/L 9:45 PM [facility] Glucose 104 (H) 70 - 99 01/31/2018 [facility] mg/dL 9:45 PM [facility] Urea Nitrogen 10 7 - 30 01/31/2018 [facility] mg/dL 9:45 PM [facility] Creatinine 0.79 0.52 - 01/31/2018 [facility] 1.04 mg/dL 9:45 PM [facility] GFR Estimate 82 >60 01/31/2018 [facility] mL/min/1.7 9:[address] Comment: Non GFR Calc GFR Estimate If >90 >60 mL/min/1.7m2 01/31/2018 9:45 P [facility] Comment: GFR Calc Calcium 8.5 8.5 - 10.1 01/31/2018 9:45 PM [facility] R IDGES mg/dL [facility] Bilirubin Total 0.5 0.2 - 1.3 mg/dL 01/31/2018 9:45 PM [facility] Albumin 3.7 3.4 - 5.0 g/dL 01/31/2018 9:45 PM [facility] Protein Total 7.7 6.8 - 8.8 g/dL 01/31/2018 9:45 PM [facility] Alkaline Phosphatase 134 40 - 150 U/L 01/31/2018 9:45 PM [facility] ALT 205 (H) 0 - 50 U/L 01/31/2018 9:45 PM [facility] AST 271 (H) 0 - 45 U/L 01/31/2018 9:45 PM [facility] Specimen Anatomical Collection Method Collection Time Receive d Time (Source) Location / / Volume Laterality Blood specimen 01/31/2018 9:13 PM 018 9:14 (specimen) CODING ASSISTANT PM CODING ASSISTANT Shay Martinez MD LAB - BLOOD ORDERABLES Performing Organization Address City/State/ZIP Code Phon e Number M [place] [address] [address] [place] [address] [facility] [address] [phone] (ABNORMAL) CBC with platelets differential (01/31/2018 9:13 PM [facility]) [facility] Method Time Signature WBC 4.4 4.0 - 01/31/2018 [facility] 11.0 9:19 PM [facility] 10e9/L [facility] RBC Count 4.08 3.8 - 5.2 01/31/2018 [facility] 10e12/L 9:19 PM [facility] Hemoglobin 13.7 11.7 - 01/31/2018 [facility] 15.7 g/dL 9:19 PM [facility] Hematocrit 40.8 35.0 - 01/31/2018 [facility] 47.0 % 9:19 PM [facility] MCV 100 78 - 100 01/31/2018 [facility] fl 9:19 PM [facility] MCH 33.6 (H) 26.5 - 01/31/2018 [facility] 33.0 pg 9:19 PM [facility] MCHC 33.6 31.5 - 01/31/2018 [facility] 36.5 g/dL 9:19 PM [facility] RDW 12.0 10.0 - 01/31/2018 [facility] 15.0 % 9:19 PM [facility] Platelet Count 151 150 - 450 01/31/2018 [facility] 10e9/L 9:19 PM [facility] Diff Method Automated 01/31/2018 [facility] Method 9:19 PM [facility] % Neutrophils 35.4 % 01/31/2018 [facility] 9:19 PM [facility] % Lymphocytes 51.7 % 01/31/2018 [facility] 9:19 PM [facility] % Monocytes 9.7 % 01/31/2018 [facility] 9:19 PM [facility] % Eosinophils 2.5 % 01/31/2018 [facility] 9:19 PM [facility] % Basophils 0.5 % 01/31/2018 [facility] 9:19 PM [facility] % Immature 0.2 % 01/31/2018 [facility] Granulocytes 9:19 PM [facility] Nucleated RBCs 0 0 /100 01/31/2018 [facility] 9:19 PM [facility] Absolute 1.5 (L) 1.6 - 8.3 01/31/2018 [facility] Neutrophil 10e9/L 9:19 PM [facility] Absolute 2.3 0.8 - 5.3 01/31/2018 [facility] Lymphocytes 10e9/L 9:19 PM [facility] Absolute 0.4 0.0 - 1.3 01/31/2018 [facility] Monocytes 10e9/L 9:19 PM [facility] Absolute 0.1 0.0 - 0.7 01/31/2018 [facility] Eosinophils 10e9/L 9:19 PM [facility] Absolute 0.0 0.0 - 0.2 01/31/2018 [facility] Basophils 10e9/L 9:19 PM [facility] Abs Immature 0.0 0 - 0.4 01/31/2018 [facility] Granulocytes 10e9/L 9:19 PM [facility] Absolute 0.0 01/31/2018 [facility] Nucleated RBC 9:19 PM [facility] Specimen Anatomical Collection Method Collection Time Receive d Time (Source) Location / / Volume Laterality Blood specimen 01/31/2018 9:13 PM 018 9:14 (specimen) CODING ASSISTANT PM CODING ASSISTANT Shay Martinez MD LAB - BLOOD ORDERABLES Performing Organization Address City/[facility]/ZIP [facility] Phon e Number M [facility] [address] [place], [place] [address] [facility] [address] [place], [place] [address], [facility] [phone] (ABNORMAL) Alcohol ethyl (01/31/2018 9:13 PM CODING ASSISTANT) P athologist Signature Ethanol g/dL 0.33 (HH) <0.01 g/dL 01/31/2018 [place] 9:48 PM [facility] Comment: Critical Value called to and read back Catarino SOSA ([place]) ON 01.31.18 AT 2142 BY AEF Specimen Anatomical Collection Method Collection Time Receive d Time (Source) Location / / Volume Laterality Blood specimen 01/31/2018 9:13 PM 018 9:14 (specimen) CODING ASSISTANT PM CODING ASSISTANT Shay Martinez MD LAB - BLOOD ORDERABLES Performing Organization Address City/State/ZIP Code Phon e Number M [facility] [address] [place], [place] [address] [place] [address] [address] [place], [place] [address], [facility] [phone] EKG 12 lead (01/31/2018 8:58 PM CODING ASSISTANT) [facility] Method Time Signature Interpretation ECG Click View RADIOLOGY Image link RESULTS to view waveform and result Specimen (Source) Anatomical Collection Method Collection Time Re ceived Time Location / / Volume Laterality 01/31/2018 8:58 PM CODING ASSISTANT Mary Grace Molina MD ECG ORDERABLES Performing [...] chloride BOLUS New Bag 01/31/2018 9:13 PM CODING ASSISTANT 1,000 mLs 1000 mL/hr Intravenous, 1,000 mL, ONCE, at 1,000 mL/hr, Administer over 1 Hours, On 01/31/18 at 2056, For 1 dose LORazepam (ATIVAN) tablet 0.5 mg Given 01/31/2018 10:30 PM CODING ASSISTANT 0.5 mg 0.5 mg, Oral, ONCE, On 01/31/18 at 2219, For 1 dose sodium chloride 0.9% infusion at 125 mL/hr, Intravenous, CONTINUOUS, A dminister after the boluses., Starting on 01/31/18 at 2056, Until 02/01/18 at 0203 documented in this encounter Active and Recently Administered Medications Times are shown in CODING ASSISTANT. Scheduled Medication Order 01/30/2018 01/31/2018 02/01/2018 0.9% [...] 0203 documented in this encounter Care Teams Dress Draper Relationship Specialty Start Date End Date Clinic, [facility] PCP - General 01/20/18 06/28/21 [facility] [place] [address] documented as of this encounter
--- OUTSIDE RECORDS SUMMARY | 2021-12-05 19:23 | XMS_ITS | Encounter Summary ---
:1980 Author Organization [place] Address [address] [facility] 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 documented as of this encounter Plan of Treatment Upcoming Encounters Date Type Specialty Care Team Description 12/20/2021 Office Visit Wound Care Luis Camara DPM [address] [place], [place] [phone] (Wo rk) 01/21/2022 Office Visit Gastroenterology Juanis Levi [address] [place] [address] Luis Fernando Miles MD 516 [facility] [place], [place] [phone] documented as of this encounter Visit Diagnoses Not on filedocumented in this encounter Additional Health Concerns Assessment Noted Time PHQ-9 Depression Total Score: 10 07/08/2018 1:27 PM CD T documented as of this encounter Care Teams Prospecting Driller Relationship Specialty Start Date End Date Clinic, [facility] PCP - General 01/20/18 06/28/[address] [place] [address] documented as of this encounter
--- OUTSIDE RECORDS SUMMARY | 2021-12-05 19:23 | XMS_ITS | Encounter Summary ---
:1980 Author Organization [place] Address [address] [place] [address]. [place] [address] Care Team Providers Name Role Phone Clinic, [facility] Primary Care Provide r Reason for Visit Reason Comments Musculoskeletal Problem Patient was working out 4 da ys ago, pain getting worse, patient in treatment at [facility] f or ETOH. PShe has taking tylenol & ibuprofen x 4 days with mi nimal relief. 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 She reports she's had pain in her left knee for the past 4 days, around the same time she began working out at the [facility] gym. Patient denies any specific injury toher [...] So Luciano MD; Location: [facility] OR ??? 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 ORTHOPEDIC SURGERY ??? THORACIC SURGERY [...] IEl, am serving as a trained medical cost consultant to document services personally performed by Donnell Shook MD, based on the provider's statements to me. Donnell Powers MD, was physically present and have reviewed and verified the accuracy of this note documented by [place]. 07/19/2018 [facility], EMERGENCY DEPARTMENT Jona Shook MD 07/19/18 1147 documented in this encounter Plan of Treatment Upcoming Encounters Date Type Specialty Care Team Description 12/20/2021 Office Visit Wound Care Luis Camara DPM [address] [place] [address] (Wo rk) 01/21/2022 Office Visit Gastroenterology Juanis Levi [address] [place] [phone] Luis Fernando Miles MD [address] [address] documented as of this encounter Procedures Procedure [...] documented as of this encounter Care Teams Fabricator Industrial Furnace Relationship Specialty Start Date End Date [facility], [facility] PCP - General 01/20/18 06/28/21 [facility] [place] [address] documented as of this encounter
--- OUTSIDE RECORDS SUMMARY | 2021-12-05 19:23 | XMS_ITS | Encounter Summary ---
:1980 Author Organization [place] Address [address] [place] [address] Care Team Providers Name Role Phone Clinic, [facility] Primary Care Provide r Tatyana Haas MOLASSES PREPARER MINERAL ENGINEER Unavailable [phone] Stephani Pina MOLASSES PREPARER MINERAL ENGINEER Unavailable Reason for Visit Reason Onset Date Comments [facility] 07/04/2018 Encounter Details Date Type Department Care Team Description 07/04/2018 Telephone [facility] Generic, Behavioral [facility] abigail Rivera MD [address] [place] [phone] Social History Tobacco Use Types Packs/Day Years Used Date Smoking Tobacco: Every Day Cigarettes 0.1 10 Smokeless Tobacco: Never Comments: 5 cigarettes a day Alcohol Use Standard Drinks/Week Comments Yes 0 (1 standard drink = 0.6 oz pure alcoho l) binge drinks Sex Assigned at Date Recorded Female 01/14/2020 10:57 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 Telephone Encounter - Scout Jarvis LADC - 07/08/2018 1:00 PM CDT Attn: Central Intake ?? This patient was admitted to the LP program on 07/08/2018. Please send the [facility] referral paperwork to [facility] to activate the authorization for the LP program. Telephone Encounter - Marlena Trujillo LADC - 07/06/2018 1:32 PM CDT SBAR Name: Stephani King Date of : 1980 Age: [age] year old Gender: female Referral Source: Self Referral GIOVANNA: N/A Insurance: [facility]: [facility] Precipitating Event: Treatment due to own [...] child protection involvement, Unemployed and Stable finances [place] Suicide Risk Status: Past month: 0. - [...] upon L+ admit so Intake can get [facility] auth. fb Telephone Encounter - Mary Ellen Larsen LICSW - 07/06/2018 10:11 AM CDT LP SCREEN TELEPHONE NOTE Stephani King paperwork was reviewed by JANETT York and the patient was deemed ELIGIBLE for the LP program. Medical: The patient is medically stable and did not appear to need a medical screening with the LP RN at this time. Insurance: [facility] MA/PMAP - The admitting counselor NEEDS to notify [facility] of the patient's admission to treatment on the day/evening of the admission with a routed telephone note. After being informed of the admission date for treatment [facility] will need to fill out the [facility] referral forms with the patient's start date and then fax the [facility] referral forms to [facility] to activate the authorization for treatment. [...] number for the patient is: [phone] @ [phone] Mary Ellen Franklin LICSW 07/06/2018 Telephone Encounter - Abrahan Waldrop - 07/04/2018 6:57 PM CDT S: [place] ED MD called at [address] [...] denies SI. A: Voluntary. R: call center supervisor paged at 1918 to review for placement on [facility]. call center supervisor approved admission at 1923.Unit notified at 2000. ED notified at 2007. documented in this encounter Plan of Treatment Upcoming Encounters Date Type Specialty Care Team Description 12/20/2021 Office Visit Wound Care Luis Camara DPM [address] [place], [place] [phone] (Wo rk) 01/21/2022 Office Visit Gastroenterology Juanis Levi [address] [place] [phone] Luis Fernando Miles MD 516 [facility] [address] [place], [place] [phone] documented as of this encounter Visit Diagnoses Diagnosis Alcohol abuse, continuous - Primary Nondependent alcohol abuse, continuous d rinking behavior documented in this encounter Care Teams Batcher Operator Relationship Specialty Start Date End Date Clinic, [facility] PCP - General 01/20/18 06/28/[address] [place] [address] Tatyana Haas APRN MINERAL ENGINEER Assigned PCP 08/02/18 01/29/20 [facility] [address] [facility] [address] [place] [address] Stephani Pina APRN MINERAL ENGINEER Assigned PCP 01/30/20 12/30/[address] [place] [address] [address] [place], [place] [address] documented as of this encounter
--- OUTSIDE RECORDS SUMMARY | 2021-12-05 19:23 | XMS_ITS | Encounter Summary ---
:1980 Author Organization [place] Address [address] [facility] 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 documented as of this encounter Plan of Treatment Upcoming Encounters Date Type Specialty Care Team Description 12/20/2021 Office Visit Wound Care Luis Camara DPM [address] [place], [place] [phone] (Wo rk) 01/21/2022 Office Visit Gastroenterology Juanis Levi [address] [place] [address] Luis Fernando Miles MD 516 [facility] [place], [place] [phone] documented as of this encounter Visit Diagnoses Not on filedocumented in this encounter Additional Health Concerns Assessment Noted Time PHQ-9 Depression Total Score: 10 07/08/2018 1:27 PM CD T documented as of this encounter Care Teams Elevator Repairer Relationship Specialty Start Date End Date Clinic, [facility] PCP - General 01/20/18 06/28/[address] [place] [address] documented as of this encounter
--- OUTSIDE RECORDS SUMMARY | 2021-12-05 19:23 | XMS_ITS | Encounter Summary ---
:1980 Author Organization [place] Address [address] [place] [address]. [place] [address] Care Team Providers Name Role Phone Clinic, [facility] Primary Care Provide r Reason for Referral Consultation (Routine) - Closed Specialty Diagnoses / Procedures Referred By Contact Refer red To Contact Diagnoses Joint effusion of the lower leg Marleny De Jesus MD [address] [place], [place] [address] [address] [facility] Keith Camryn Sanju [phone] Phone: Fax: Referral ID Status Reason Start Date Expiration Date Visits Requ ested Visits Authorized [id number] Closed 07/20/2018 07/20/2019 1 1 Reason for Visit Reason Comments Knee Pain Complains of left knee and l eg pain. States it started hurting 5 days ago. Was seen in ED and was given tordal and xray was done. Pt states they told her it was probably tendonit is. Encounter Details Date Type Department Care Team Description 07/20/2018 [facility] Jeannine De Jesus ra, MD Joint effusion of the Emergency Department [address] [place] [address] lower leg (Primary Dx) [address] [place] [phone] (Wo rk) Social History Tobacco Use Types Packs/Day Years Used Date Smoking Tobacco: Every Day Cigarettes 0.3 10 Smokeless Tobacco: Never Comments: 5-8 cigarettes a day Alcohol Use Standard Drinks/Week Comments Not Currently 0 (1 standard drink = 0.6 oz pure alcoho l) sober 16 days Sex Assigned at Date Recorded Female 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 If you have to wear a moal-pgb-rafl knee brace, you can open it to apply the ice pack, or heat, directly to the knee. Never put ice directly on the skin. Always wrap the ice in a towel or other type of cloth. ?? You may use??ixpz-nhl-gsqkpmw pain medicine to control pain, unless another [...] work duties. ?? If you have a ffgx-khp-nufb knee brace, you can remove it to [...] Shaking chills Date Last Reviewed: 06/17/2017 ?? [phone] [employer]. [address] [place] [address], [place] [address]. All rights reserved. This information is not [...] cannot be sent through Care Everywhere.Knee Effusion (Khmer)documented in this encounter Medications at Time of [...] treadmill and eliptical. She is currently in [facility]. She was seen and given toradol [...] and Surgical History, and Social History inthe Scheduling Employee Scheduling Software system. Review of Systems Musculoskeletal: Positive for [...] Joint effusion of the lower leg 07/20/2018 [facility], EMERGENCY DEPARTMENT Marleny De Jesus MD 07/20/18 1542 documented in this encounter Plan of Treatment Upcoming Encounters Date Type Specialty Care Team Description 12/20/2021 Office Visit Wound Care Luis Camara DPM [address] [place] [address] (Wo rk) 01/21/2022 Office Visit Gastroenterology Juanis Levi [address] [place] [phone] Luis Fernando Miles MD [address] [address] Scheduled Referrals Name Type Priority Associated Diagnoses [...] documented as of this encounter Care Teams Lifts And Cranes Inspector Relationship Specialty Start Date End Date Clinic, [facility] PCP - General 01/20/18 06/28/[address] [place] [address] documented as of this encounter
--- OUTSIDE RECORDS SUMMARY | 2021-12-05 19:23 | XMS_ITS | Encounter Summary ---
:1980 Author Organization [place] Address [address] [facility] 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 documented as of this encounter Plan of Treatment Upcoming Encounters Date Type Specialty Care Team Description 12/20/2021 Office Visit Wound Care Luis Camara DPM [address] [place], [place] [phone] (Wo rk) 01/21/2022 Office Visit Gastroenterology Juanis Levi [address] [place] [address] Luis Fernando Miles MD [address] [facility] [place], [place] [phone] documented as of this encounter Visit Diagnoses Not on filedocumented in this encounter Care Teams Driving School Instructor Relationship Specialty Start Date End Date Clinic, [facility] PCP - General 01/20/18 06/28/21 [facility] [address] documented as of this encounter
--- OUTSIDE RECORDS SUMMARY | 2021-12-05 19:23 | XMS_ITS | Encounter Summary ---
:1980 Author Organization [place] Address [address] [facility] 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 Patient reports that she will be at till next Friday. Patient is seen by a PCP in [place]. Patient reports that she is smoking about [...] So Luciano MD; Location: [facility] OR ??? SNOW PLOW OPERATOR SURGERY ??? ORTHOPEDIC SURGERY ??? THORACIC [...] and Alcohol Dependence. Tatyana Haas APRN CNP [facility] documented in this encounter Plan of Treatment Upcoming Encounters Date Type Specialty Care Team Description 12/20/2021 Office Visit Wound Care Luis Camara DPM [address] [place] [address] (Wo rk) 01/21/2022 Office Visit Gastroenterology Juanis Levi [address] [place] [phone] Luis Fernando Miles MD [address] [facility] [address] [place], [place] [address] documented as of this encounter Visit Diagnoses Diagnosis Drug-induced constipation - Primary Other constipation Rash and nonspecific skin eruption Rash and other nonspecific skin eruption Alcohol abuse, continuous Nondependent alcohol abuse, continuous d rinking behavior documented in this encounter Additional Health Concerns Assessment Noted Time PHQ-9 Depression Total Score: 10 07/08/2018 1:27 PM CD T documented as of this encounter Care Teams Contract Sheltered Workshop Supervisor Relationship Specialty Start Date End Date Clinic, [facility] PCP - General 01/20/18 06/28/[address] [place] [address] documented as of this encounter
--- OUTSIDE RECORDS SUMMARY | 2021-12-05 19:23 | XMS_ITS | Encounter Summary ---
:1980 Author Organization [place] Address [address] [facility] 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 [place] [place] [address] documented as of this encounter
--- OUTSIDE RECORDS SUMMARY | 2021-12-05 19:23 | XMS_ITS | Encounter Summary ---
:1980 Author Organization [place] Address [address] [facility] 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 documented as of this encounter Plan of Treatment Upcoming Encounters Date Type Specialty Care Team Description 12/20/2021 Office Visit Wound Care Luis Camara DPM [address] [place], [place] [phone] (Wo rk) 01/21/2022 Office Visit Gastroenterology Juanis Levi [address] [place] [address] Luis Fernando Miles MD [address] [facility] [place] [address] documented as of this encounter Visit Diagnoses Not on filedocumented in this encounter Additional Health Concerns Assessment Noted Time PHQ-9 Depression Total Score: 10 07/08/2018 1:27 PM CD T documented as of this encounter Care Teams Counselor Nurses' Association Relationship Specialty Start Date End Date Clinic, [facility] PCP - General 01/20/18 06/28/[address] [place] [address] documented as of this encounter
--- OUTSIDE RECORDS SUMMARY | 2021-12-05 19:23 | XMS_ITS | Encounter Summary ---
:1980 Author Organization [place] Address [facility] [place] [address] Care Team Providers Name Role Phone Clinic, [facility] Primary Care Provide r Tatyana Haas Sanju OFFICE SERVICES 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 ASIC ENGINEER Unavailable [phone] Reason for Visit Reason Comments Chest Pain Encounter Details Date Type Department Care Team Description 08/23/2018 Emergency [facility] Sandra Moreno intoxication without complication (H); [facility] Emergency Dep t MD Kim Chest pain, unspecified type; [address] [facility] [place] [address] [phone] (Wo rk) Social History Tobacco Use Types Packs/Day Years Used Date Smoking Tobacco: Every Day Cigarettes 0.3 10 Smokeless Tobacco: Never Comments: 5-8 cigarettes a day Alcohol Use Standard Drinks/Week Comments Not Currently 0 (1 standard drink = 0.6 oz pure alcoho l) sober 16 days Sex Assigned at Date Recorded Female 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 Alcohol Intoxication (Luxembourger)Hypokalemia (Luxembourger)Chest Pain, Uncertain Cause (Luxembourger)documented in this encounter Medications at Time of [...] History: Breast surgery - abscess drained x2 Agricultural Technician surgery Orthopedic surgery Thoracic surgery Family History: Mother - depression, psychotic disorder, thyroid disease Father - cerebrovascular disease, [place] Brother - depression Social History: The patient [...] nerves intact. Motor- moves all 4 extremities, wastewater analyst 5/5. DF and PF 5/5. Sensation- intact arms and face and legs. Coordination- ambulatory. Overall symmetrical exam HEME: no bruising or petechiae/contusions LYMPH: no lymphadenopathy Emergency Department Course ECG: ECG taken at 0136, ECG read at [address] Sandra Moreno MD Normal sinus rhythm Prolonged QT Abnormal ECG Rate 92 bpm. IN interval 160. QRS duration 102. QT/QTc 390/482. [...] while in the emergency department, results above. (0464) I performed an exam of the patient [...] PCP. (0450) Patient's mother has arrived to package pick up patient. (0452) Rechecked patient. (0504) Spoke with [...] and the provider's statements to me. 08/23/2018 [facility] EM[facility] Sandra Moreno MD 08/23/18 1815 documented in this encounter Plan of Treatment Upcoming Encounters Date Type Specialty Care Team Description 12/20/2021 Office Visit Wound Care Luis Camara DPM [address] [place], [place] [phone] (Wo rk) 01/21/2022 Office Visit Gastroenterology Juanis Levi [address] [place] [phone] Luis Fernando Miles MD [address] [address] documented as of this encounter Procedures Procedure [...] Color Urine Yellow 08/23/2018 [facility] 3:04 AM [facility] Appearance Urine Clear 08/23/2018 [facility] 3:04 AM [facility] Glucose Urine Negative NEG^Negat 08/23/2018 [place]ula mg/dL 3:04 AM [facility] Bilirubin Urine Negative NEG^Negat 08/23/2018 [place] paula 3:04 AM [facility] Ketones Urine Negative NEG^Negat 08/23/2018 [place] paula mg/dL 3:04 AM [facility] Specific Reading 1.020 1.003 - 08/23/2018 [place] Urine 1.035 3:04 AM [facility] Blood Urine Negative NEG^Negat 08/23/2018 [place] paula 3:04 AM [facility] pH Urine 6.5 5.0 - 7.0 08/23/2018 [place] pH 3:04 AM [facility] Protein Albumin 20 (A) NEG^Negat 08/23/2018 [place] Urine paula mg/dL 3:04 AM [facility] Urobilinogen >12.0 (H) 0.0 - 2.0 08/23/2018 [place] mg/dL mg/dL 3:04 AM [facility] Nitrite Urine Negative NEG^Negat 08/23/2018 [place] paula 3:04 AM [facility] Leukocyte Negative NEG^Negat 08/23/2018 [place] Esterase Urine paula 3:04 AM [facility] Source Midstream 08/23/2018 [place] Urine 2:55 AM [facility] WBC Urine <1 0 - 5 08/23/2018 [facility] /HPF 3:04 AM [facility] RBC Urine <1 0 - 2 08/23/2018 [facility] /HPF 3:04 AM [facility] Squamous 1 0 - 1 08/23/2018 [place] Epithelial /HPF /HPF 3:04 AM [facility] Mucous Urine Present (A) NEG^Negat 08/23/2018 [place] paula /LPF 3:04 AM [facility] Hyaline Casts 1 0 - 2 08/23/2018 [place] /LPF 3:04 AM [facility] Specimen (Source) Anatomical Collection Method Collection Time Re ceived Time Location / / Volume Laterality Examination of URINE SPECIMEN 08/23/2018 2:55 08/24/19 19 3:00 midstream urine OBTAINED BY CLEAN AM [facility] specimen CATCH PROCEDURE / (procedure) Unknown Sandra Moreno MD LAB - URINE ORDERABLES Performing Organization Address City/State/ZIP Code Phon e Number [place] [address] [address] [address] [facility] [address] [phone] (ABNORMAL) Alcohol ethyl (08/23/2018 1:44 AM CDT) athologist Signature Ethanol g/dL 0.19 (H) <0.01 g/dL 08/23/2018 [place] 2:[address] [facility] Specimen Anatomical Collection Method Collection Time Receive d Time (Source) Location / / Volume Laterality 08/23/2018 1:44 AM 9 1:49 CDT AM CDT Sandra Moreno MD LAB - BLOOD ORDERABLES Performing Organization Address City/[facility]/ZIP [facility] Phon e Number M [facility] [address] [place] [address] [facility] [address] [place] [address], [place] [phone] HCG QUALitative (blood) (08/23/2018 1:44 AM CDT) [facility] gist Method Time Signature HCG Qualitative Negative NEG^Negati 08/23/2018 [place] Serum ve 2:10 AM T [facility] Comment: This test is for screening purposes. ??R esults should be interpreted along with the clinical picture. ??Confirmation te sting is available if warranted by ordering [id number], HCG Quantitative Pregna ncy. Specimen Anatomical Collection Method Collection Time Receive d Time (Source) Location / / Volume Laterality Blood specimen 08/23/2018 1:44 AM 019 1:49 (specimen) CDT AM CDT Sandra Moreno MD LAB - BLOOD ORDERABLES Performing Organization Address City/State/ZIP Code Phon e Number M [facility] [address] [place], [place] [address] [facility] [address] [place], [place] [address], [facility] [phone] Troponin I (08/23/2018 1:44 AM CDT) athologist Signature Troponin I ES <0.015 0.000 - 08/23/2018 [place] 0.045 ug/L 2:13 AM [facility] Comment: The 99th percentile for upper [...] Address City/State/ZIP Code Phon e Number M [facility] [address] [place] [address] [facility] [address] [phone] (ABNORMAL) Basic metabolic panel (08/23/2018 1:44 AM CDT) athologist Signature Sodium 141 133 - 144 08/23/2018 [facility] mmol/L 2:04 AM [facility] Potassium 2.7 (L) 3.4 - 5.3 08/23/2018 [facility] mmol/L 2:04 AM [facility] Chloride 105 94 - 109 08/23/2018 [facility] mmol/L 2:04 AM [facility] Carbon Dioxide 26 20 - 32 08/23/2018 [facility] mmol/L 2:08 AM [facility] Anion Gap 10 3 - 14 08/23/2018 [facility] mmol/L 2:08 AM [facility] Glucose 99 70 - 99 08/23/2018 [facility] mg/dL 2:08 AM [facility] Urea Nitrogen 6 (L) 7 - 30 08/23/2018 [facility] mg/dL 2:08 AM [facility] Creatinine 0.55 0.52 - 08/23/2018 [facility] 1.04 mg/dL 2:08 AM [facility] GFR Estimate >90 >60 08/23/2018 [facility] mL/min/{1. 2:08 AM [facility] 73_m2} HOSPITAL Comment: Non GFR Calc Starting 02/03/2018, serum creatinine ba sed estimated GFR (eGFR) will be calculated using the Chronic Kidney Dise ase Epidemiology Collaboration (CKD-EPI) equation. GFR Estimate If >90 >60 mL/min/{1.73_m2} 08/23/2018 2: [address] [facility] Comment: GFR Calc Starting 02/03/2018, serum creatinine ba sed estimated GFR (eGFR) will be calculated using the Chronic Kidney Dise [facility] Epidemiology Collaboration (CKD-EPI) equation. Calcium 8.5 8.5 - 10.1 mg/dL 08/23/2018 2:08 AM CDT [facility] Specimen Anatomical Collection Method Collection Time Receive d Time (Source) Location / / Volume Laterality Blood specimen 08/23/2018 1:44 AM 019 1:49 (specimen) CDT AM CDT Sandra Moreno MD LAB - BLOOD ORDERABLES Performing Organization Address City/State/ZIP Code Phon e Number M [address] [address] [facility] [address] [place], [place] [address] [facility] [phone] [address] [phone] [facility] (ABNORMAL) CBC with platelets differential (08/23/2018 1:44 AM CDT) [facility] Method Time Signature WBC 3.9 (L) 4.0 - 08/23/2018 [place] 11.0 1:52 AM [facility] 10e9/L [facility] RBC Count 3.96 3.8 - 5.2 08/23/2018 [place] 10e12/L 1:52 AM [facility] Hemoglobin 12.8 11.7 - 08/23/2018 [place] 15.7 g/dL 1:52 AM [facility] Hematocrit 37.3 35.0 - 08/23/2018 [place] 47.0 % 1:52 AM [facility] MCV 94 78 - 100 08/23/2018 [place] fl 1:52 AM [facility] MCH 32.3 26.5 - 08/23/2018 [place] 33.0 pg 1:52 AM [facility] MCHC 34.3 31.5 - 08/23/2018 [facility] 36.5 g/dL 1:52 AM [facility] RDW 12.3 10.0 - 08/23/2018 [facility] 15.0 % 1:52 AM [facility] Platelet Count 84 (L) 150 - 450 08/23/2018 [facility] 10e9/L 1:52 AM [facility] Diff Method Automated 08/23/2018 [facility] Method 1:52 AM [facility] % Neutrophils 29.6 % 08/23/2018 [facility] 1:52 AM [facility] % Lymphocytes 59.7 % 08/23/2018 [facility] 1:52 AM [facility] % Monocytes 8.2 % 08/23/2018 [facility] 1:52 AM [facility] % Eosinophils 2.0 % 08/23/2018 [facility] 1:52 AM [facility] % Basophils 0.5 % 08/23/2018 [facility] 1:52 AM [facility] % Immature 0.0 % 08/23/2018 [facility] Granulocytes 1:52 AM [facility] Nucleated RBCs 0 0 /100 08/23/2018 [facility] 1:52 AM [facility] Absolute 1.2 (L) 1.6 - 8.3 08/23/2018 [facility] Neutrophil 10e9/L 1:52 AM [facility] Absolute 2.3 0.8 - 5.3 08/23/2018 [facility] Lymphocytes 10e9/L 1:52 AM [facility] Absolute 0.3 0.0 - 1.3 08/23/2018 [facility] Monocytes 10e9/L 1:52 AM [facility] Absolute 0.1 0.0 - 0.7 08/23/2018 [facility] Eosinophils 10e9/L 1:52 AM [facility] Absolute 0.0 0.0 - 0.2 08/23/2018 [facility] Basophils 10e9/L 1:52 AM [facility] Abs Immature 0.0 0 - 0.4 08/23/2018 [facility] Granulocytes 10e9/L 1:52 AM [facility] Absolute 0.0 08/23/2018 [facility] Nucleated RBC 1:52 AM [facility] Specimen Anatomical Collection Method Collection Time Receive d Time (Source) Location / / Volume Laterality Blood specimen 08/23/2018 1:44 AM 019 1:49 (specimen) CDT AM CDT Sandra Moreno MD LAB - BLOOD ORDERABLES Performing Organization Address City/State/ZIP Code Phon e Number [facility] [address] [place], [place] [address] [facility] [address] [place], [place] [address] [facility] [phone] EKG 12 lead (08/23/2018 1:36 AM CDT) [facility] gist Method Time Signature Interpretation ECG [...] documented as of this encounter Care Teams Wheel Mill Operator Relationship Specialty Start Date End Date Clinic, [facility] PCP - General 01/20/18 06/28/[address] [place] [address] Tatyana Haas APRN ASIC ENGINEER Assigned PCP 08/02/18 01/29/20 [facility] [address] [facility] [address] [place], [place] [address] documented as of this encounter
--- OUTSIDE RECORDS SUMMARY | 2021-12-05 19:23 | XMS_ITS | Encounter Summary ---
:1980 Author Organization [place] Address [facility] [place] [address] Care Team Providers Name Role Phone Clinic, Formerly [facility] Primary Care Provide r Reason for Visit Reason Comments Alcohol Intoxication Encounter Details Date Type Department Care Team Description 05/23/[address] 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 If you answer yes to any of [...] help, contact: Your caregiver. Alcoholics Anonymous (AA). [facility] Intergroup: [phone] [facility] Central Office: [phone] A drug or alcohol rehabilitation program. You [...] treatment Past Surgical History: Breast abscess drained Pm Head Cook surgery Thoracic surgery Orthopedic surgery Family History: [...] provider's statements to me. Areli Morejon 05/23/2018 [facility] EMERGENCY DEPARTMENT Silke Muñiz MD 05/23/18 1830 documented in this encounter Plan of Treatment Upcoming Encounters Date Type Specialty Care Team Description 12/20/2021 Office Visit Wound Care Luis Camara DPM [address] [place] [address] (Wo rk) 01/21/2022 Office Visit Gastroenterology Juanis Levi [address] [place] [address] Luis Fernando iMles MD [address] [id number] documented as of this encounter Procedures Procedure [...] UA with Microscopic (05/23/2018 5:11 PM CDT) [facility] Method Time Signature Color Urine Light Yellow 05/23/2018 [facility] 5:22 PM [facility] Appearance Urine Clear 05/23/2018 [facility] 5:22 PM [facility] Glucose Urine Negative NEG^Negat 05/23/2018 [facility] paula mg/dL 5:22 PM [facility] Bilirubin Urine Negative NEG^Negat 05/23/2018 [facility] paula 5:22 PM [facility] Ketones Urine Negative NEG^Negat 05/23/2018 [facility] paula mg/dL 5:22 PM [facility] Specific [place] 1.009 1.003 - 05/23/2018 [facility] Urine 1.035 5:22 PM [facility] Blood Urine Negative NEG^Negat 05/23/2018 [facility] paula 5:22 PM [facility] pH Urine 6.0 5.0 - 7.0 05/23/2018 [facility] pH 5:22 PM [facility] Protein Albumin Negative NEG^Negat 05/23/2018 [facility] Urine paula mg/dL 5:22 PM [facility] Urobilinogen Normal 0.0 - 2.0 05/23/2018 [facility] mg/dL mg/dL 5:22 PM [facility] Nitrite Urine Negative NEG^Negat 05/23/2018 [facility] paula 5:22 PM [facility] Leukocyte Negative NEG^Negat 05/23/2018 [facility] Esterase Urine paula 5:22 PM [facility] Source Midstream 05/23/2018 [facility] Urine 5:11 PM [facility] WBC Urine <1 0 - 5 05/23/2018 [facility] /HPF 5:22 PM [facility] RBC Urine <1 0 - 2 05/23/2018 [facility] /HPF 5:22 PM [facility] Bacteria Urine Few (A) NEG^Negat 05/23/2018 [facility] paula /HPF 5:22 PM [facility] Squamous 1 0 - 1 05/23/2018 [facility] Epithelial /HPF /HPF 5:22 PM [facility] Mucous Urine Present (A) NEG^Negat 05/23/2018 [place] paula /LPF 5:22 PM [facility] Specimen (Source) Anatomical Collection Method Collection Time Re ceived Time Location / / Volume Laterality Examination of 05/23/2018 5:11 05/23/2018 5:18 midstream urine PM CDT PM CDT specimen (procedure) Silke Muñiz MD LAB - URINE ORDERABLES Performing Organization Address City/[facility]/ZIP [facility] Phon e Number [facility] [address] [address] [facility] [address] [address], [facility] [phone] Lipase (05/23/2018 3:34 PM CDT) athologist Signature Lipase 172 73 - 393 05/23/2018 [facility] U/L 4:25 PM [facility] Specimen Anatomical Collection Method Collection Time Receive d Time (Source) Location / / Volume Laterality 05/23/2018 3:34 PM 9 3:39 CDT PM CDT Sandra Moreno MD LAB - BLOOD ORDERABLES Performing Organization Address City/[facility]/ZIP [facility] Phon e Number M [facility] [address] [address] [facility] [address] [address], [facility] [phone] (ABNORMAL) Comprehensive metabolic panel (05/23/2018 3:34 PM CDT) P athologist Signature Sodium 139 133 - 144 05/23/2018 [place] mmol/L 3:51 PM [facility] Potassium 3.5 3.4 - 5.3 05/23/2018 [place] mmol/L 3:51 PM [facility] Chloride 106 94 - 109 05/23/2018 [place] mmol/L 3:51 PM [facility] Carbon Dioxide 27 20 - 32 05/23/2018 [facility] mmol/L 3:56 PM [facility] Anion Gap 6 3 - 14 05/23/2018 [facility] mmol/L 3:56 PM [facility] Glucose 106 (H) 70 - 99 05/23/2018 [facility] mg/dL 3:56 PM [facility] Urea Nitrogen 7 7 - 30 05/23/2018 [facility] mg/dL 3:56 PM [facility] Creatinine 0.64 0.52 - 05/23/2018 [facility] 1.04 mg/dL 3:56 PM [facility] GFR Estimate >90 >60 05/23/2018 [facility] mL/min/{1. 3:56 PM [facility] 73_m2} HOSPITAL Comment: Non GFR Calc Starting 02/03/2018, serum creatinine ba sed estimated GFR (eGFR) will be calculated using the Chronic Kidney Dise [facility] Epidemiology Collaboration (CKD-EPI) equation. GFR Estimate If >90 >60 mL/min/{1.73_m2} 05/23/2018 3: 56 PM [facility] Comment: GFR Calc Starting 02/03/2018, serum creatinine ba sed estimated GFR (eGFR) will be calculated using the Chronic Kidney Dise [facility] Epidemiology Collaboration (CKD-EPI) equation. Calcium 8.6 8.5 - 10.1 05/23/2018 3:56 PM [facility] mg/dL [facility] Bilirubin Total 0.7 0.2 - 1.3 mg/dL 05/23/2018 3:59 PM [facility] Albumin 3.6 3.4 - 5.0 g/dL 05/23/2018 3:59 PM [facility] Protein Total 7.9 6.8 - 8.8 g/dL 05/23/2018 3:59 PM [facility] Alkaline Phosphatase 126 40 - 150 U/L 05/23/2018 3:59 PM [facility] ALT 164 (H) 0 - 50 U/L 05/23/2018 3:59 PM [facility] AST 251 (H) 0 - 45 U/L 05/23/2018 3:59 PM [facility] Specimen Anatomical Collection Method Collection Time Receive d Time (Source) Location / / Volume Laterality Blood specimen 05/23/2018 3:34 PM 2 019 3:39 (specimen) CDT PM CDT Silke Muñiz MD LAB - BLOOD ORDERABLES Performing Organization Address City/State/ZIP Code Phon e Number M [facility] [address] [place], [place] [address] [facility] [address] [phone] (ABNORMAL) CBC with platelets differential (05/23/2018 3:34 PM CDT) [facility] Method Time Signature WBC 3.3 (L) 4.0 - 05/23/2018 [facility] 11.0 3:42 PM [facility] 10e9/L [facility] RBC Count 4.13 3.8 - 5.2 05/23/2018 [facility] 10e12/L 3:42 PM [facility] Hemoglobin 13.5 11.7 - 05/23/2018 [facility] 15.7 g/dL 3:42 PM [facility] Hematocrit 39.9 35.0 - 05/23/2018 [facility] 47.0 % 3:42 PM [facility] MCV 97 78 - 100 05/23/2018 [facility] fl 3:42 PM [facility] MCH 32.7 26.5 - 05/23/2018 [facility] 33.0 pg 3:42 PM [facility] MCHC 33.8 31.5 - 05/23/2018 [facility] 36.5 g/dL 3:42 PM [facility] RDW 13.2 10.0 - 05/23/2018 [facility] 15.0 % 3:42 PM [facility] Platelet Count 150 150 - 450 05/23/2018 [facility] 10e9/L 3:42 PM [facility] Diff Method Automated 05/23/2018 [facility] Method 3:42 PM [facility] % Neutrophils 41.0 % 05/23/2018 [facility] 3:42 PM [facility] % Lymphocytes 43.6 % 05/23/2018 [facility] 3:42 PM [facility] % Monocytes 9.7 % 05/23/2018 [facility] 3:42 PM [facility] % Eosinophils 4.8 % 05/23/2018 [facility] 3:42 PM [facility] % Basophils 0.6 % 05/23/2018 [facility] 3:42 PM [facility] % Immature 0.3 % 05/23/2018 [place] Granulocytes 3:42 PM [facility] Nucleated RBCs 0 0 /100 05/23/2018 [facility] 3:42 PM [facility] Absolute 1.4 (L) 1.6 - 8.3 05/23/2018 [place] Neutrophil 10e9/L 3:42 PM [facility] Absolute 1.4 0.8 - 5.3 05/23/2018 [place] Lymphocytes 10e9/L 3:42 PM [facility] Absolute 0.3 0.0 - 1.3 05/23/2018 [place] Monocytes 10e9/L 3:42 PM [facility] Absolute 0.2 0.0 - 0.7 05/23/2018 [facility] Eosinophils 10e9/L 3:42 PM [facility] Absolute 0.0 0.0 - 0.2 05/23/2018 [place] Basophils 10e9/L 3:42 PM [facility] Abs Immature 0.0 0 - 0.4 05/23/2018 [place] Granulocytes 10e9/L 3:42 PM [facility] Absolute 0.0 05/23/2018 [place] Nucleated RBC 3:42 PM [facility] Specimen Anatomical Collection Method Collection Time Receive d Time (Source) Location / / Volume Laterality Blood specimen 05/23/2018 3:34 PM 019 3:39 (specimen) CDT PM CDT Silke Muñiz MD LAB - BLOOD ORDERABLES Performing Organization Address City/State/ZIP Code Phon e Number M [facility] [address] [address] [facility] [address] [phone] (ABNORMAL) Alcohol ethyl (05/23/2018 3:34 PM CDT) P athologist Signature Ethanol g/dL 0.17 (H) <0.01 g/dL 05/23/2018 [place] 3:59 PM CDT [facility] Specimen Anatomical Collection Method Collection Time Receive d Time (Source) Location / / Volume Laterality Blood specimen 05/23/2018 3:34 PM 019 3:39 (specimen) CDT PM CDT Silke Muñiz MD LAB - BLOOD ORDERABLES Performing Organization Address City/State/ZIP Code Phon e Number [address] [address] [address] [place], [place] [address] [facility] [address] [place], [place] [address] [facility] [phone] documented in this encounter Visit Diagnoses Diagnosis [...] minutes. documented in this encounter Care Teams Mold Changer Relationship Specialty Start Date End Date Clinic, [facility] PCP - General 01/20/18 06/28/[address] [place] [id number] documented as of this encounter
--- OUTSIDE RECORDS SUMMARY | 2021-12-05 19:23 | XMS_ITS | Encounter Summary ---
:1980 Author Organization [place] Address [address] [facility] 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 for her medical care moving forward. States that she does not currently have a PCP. Will forward chart to biomedical instrument technician for review. Constipation Improvement with [...] Trino Luciano MD; Location: [facility] OR ??? ENGLISH LANGUAGE LEARNER TUTOR SURGERY ??? ORTHOPEDIC SURGERY ??? THORACIC SURGERY [...] -Refills sent. Return for Follow up with [facility] and PCP as scheduled.. Tatyana Haas APRN CNP [facility] documented in this encounter Plan of Treatment Upcoming Encounters Date Type Specialty Care Team Description 12/20/2021 Office Visit Wound Care Luis Camara DPM [address] [place] [address] (Wo rk) 01/21/2022 Office Visit Gastroenterology Juanis Levi [address] [place] [address] Luis Fernando Miles MD [address] [address] documented as of this encounter Visit Diagnoses [...] as of this encounter Care Teams Electric Clock Mechanic Relationship Specialty Start Date End Date Clinic, [facility] PCP - General 01/20/18 06/28/[address] [place] [address] documented as of this encounter
--- OUTSIDE RECORDS SUMMARY | 2021-12-05 19:23 | XMS_ITS | Encounter Summary ---
:1980 Author Organization [place] Address [address] [facility] 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 documented as of this encounter Plan of Treatment Upcoming Encounters Date Type Specialty Care Team Description 12/20/2021 Office Visit Wound Care Luis Camara DPM [address] [place], [place] [address] (Wo rk) 01/21/2022 Office Visit Gastroenterology Juanis Levi [address] [place] [address] Luis Fernando Miles MD [address] [facility] [address] [place], [place] [address] documented as of this encounter Visit Diagnoses Not on filedocumented in this encounter Care Teams Streaming Media Specialist Relationship Specialty Start Date End Date Clinic, [facility] PCP - General 01/20/18 06/28/21 [facility] [place] [address] documented as of this encounter
--- OUTSIDE RECORDS SUMMARY | 2021-12-05 19:23 | XMS_ITS | Encounter Summary ---
:1980 Author Organization [place] Address [facility] [place] [address] Care Team Providers Name Role Phone Clinic, [facility] Primary Care Provide r Reason for Visit Reason Comments Alcohol Problem Vomiting Encounter Details Date Type Department Care Team Description 02/24/2018 Emergency [facility] Celestino Knox A lcohol withdrawal syndrome with complication (H); [facility] Emergency Dep t Non-intractable vomiting with nausea, un specified vomiting type [address] [facility] [place], [place] [address] 0171 [facility] [phone] [place], [place] [address] (Wo rk) Social History Tobacco Use Types Packs/Day Years Used Date Smoking Tobacco: Every Day Cigarettes 0.1 10 Smokeless Tobacco: Never Comments: 5 cigarettes a day Alcohol Use Standard Drinks/Week Comments Yes 0 (1 standard drink = 0.6 oz pure alcoho l) binge drinks Sex Assigned at Date Recorded Female 01/14/2020 10:57 AM OCCUPATIONAL THERAPY DIRECTOR documented as of this encounter Last Filed Vital Signs Vital Sign Reading Time Taken Comments Blood Pressure 130/81 02/24/2018 5:30 PM OCCUPATIONAL THERAPY DIRECTOR Pulse 86 02/24/2018 5:30 PM OCCUPATIONAL THERAPY DIRECTOR Temperature 36.6 ??C (97.8 ??F) 02/24/2018 1:15 PM OCCUPATIONAL THERAPY DIRECTOR Respiratory Rate 14 02/24/2018 1:15 PM OCCUPATIONAL THERAPY DIRECTOR Oxygen Saturation 95% 02/24/2018 5:30 PM OCCUPATIONAL THERAPY DIRECTOR Inhaled Oxygen Concentration - - Weight - - Height - - Body Mass Index - - documented in this encounter Discharge Instructions Discharge InstructionsCelestino Knox MD - 02/24/2018 4:37 PM OCCUPATIONAL THERAPY DIRECTOR Do not take the Librium while breast-feeding. [...] if there is anything that worries you. PATIONAL THERAPY DIRECTOR AttachmentsThe following attachments cannot be sent through Care Everywhere. ALCOHOL WITHDRAWAL (UZBEK)documented in this encounter Medications at Time of [...] 2 days. Also reports feeling some palpitations. PATIONAL THERAPY DIRECTOR Celestino Knox MD - 02/24/2018 1:03 PM [...] hysterectomy - combined Orthopedic surgery Thoracic surgery CONTACT CENTER ENGINEER surgery Family History: Depression Psychotic disorder Thyroid [...] sinus rhythm Normal ECG Rate 90 bpm. GA interval 176. QRS duration 96. QT/QTc 392/479. [...] observations and the provider's statements to me. [facility] Celestino Knox MD 02/24/18 1730 PATIONAL THERAPY DIRECTOR documented in this encounter Plan of Treatment Upcoming Encounters Date Type Specialty Care Team Description 12/20/2021 Office Visit Wound Care Luis Camara DPM [address] [place] [address] (Wo rk) 01/21/2022 Office Visit Gastroenterology Juanis Levi [address] [place] [address] Luis Fernando Miles MD [address] [facility] [address] [place] [address] documented as of this encounter Procedures Procedure Name Priority Date/Time Associated Comments Diagnosis BLOOD GAS VENOUS WITH STAT 02/24/2018 3:59 PM Results for this OXYHEMOGLOBIN OCCUPATIONAL THERAPY DIRECTOR procedure are in the results section. HCG QUALITATIVE Routine 02/24/2018 3:21 PM Result s for this OCCUPATIONAL THERAPY DIRECTOR procedure are i n the results section. INR STAT 02/24/2018 3:20 PM Results f or this OCCUPATIONAL THERAPY DIRECTOR procedure are i n the results section. MAGNESIUM STAT 02/24/2018 3:20 PM Results f or this OCCUPATIONAL THERAPY DIRECTOR procedure are i n the results section. KETONE STAT 02/24/2018 3:20 PM Results f or this BETA-HYDROXYBUTYRATE OCCUPATIONAL THERAPY DIRECTOR procedu re are in QUANTITATIVE, RAPID the resu lts section. COMPREHENSIVE STAT 02/24/2018 3:20 PM Results for this METABOLIC PANEL OCCUPATIONAL THERAPY DIRECTOR procedure ar e in the results section. ETHYL ALCOHOL LEVEL STAT 02/24/2018 3:20 PM Re sults for this OCCUPATIONAL THERAPY DIRECTOR procedure are i n the results section. CBC WITH PLATELETS STAT 02/24/2018 3:20 PM Res ults for this OCCUPATIONAL THERAPY DIRECTOR procedure are i n the results section. EKG 12-LEAD, TRACING STAT 02/24/2018 1:32 PM R esults for this ONLY OCCUPATIONAL THERAPY DIRECTOR procedure are i n the results section. documented in this encounter Results (ABNORMAL) Blood gas venous and oxyhgb (02/24/2018 3:59 PM OCCUPATIONAL THERAPY DIRECTOR) [facility] Method Time Signature Ph Venous 7.43 7.32 - 02/24/2018 [facility] 7.43 pH 4:[address] [facility] PCO2 Venous 40 40 - 50 02/24/2018 [facility] mm Hg 4:[address] [facility] PO2 Venous 52 (H) 25 - 47 02/24/2018 [facility] mm Hg 4:[address] [facility] Bicarbonate 26 21 - 28 02/24/2018 [facility] Venous mmol/L 4:[address] [facility] FIO2 Room air 02/24/2018 [facility] 3:[address] [facility] Oxyhemoglobin 80 % 02/24/2018 [facility] Venous 4:[address] [facility] Base Excess 1.9 mmol/L 02/24/2018 [facility] Venous 4:[address] [facility] Comment: Reference range: -7.7 to 1.9 Specimen Anatomical Collection Method Collection Time Receive d Time (Source) Location / / Volume Laterality 02/24/2018 3:59 PM 9 4:00 OCCUPATIONAL THERAPY DIRECTOR PM OCCUPATIONAL THERAPY DIRECTOR Celestino Knox MD LAB - BLOOD ORDERABLES Performing Organization Address City/State/ZIP Code Phon e Number M [facility] [address] [place], [place] [address] [facility] [address] [place], [place] [address], [facility] [phone] HCG qualitative (02/24/2018 3:21 PM OCCUPATIONAL THERAPY DIRECTOR) Patholo gist Method Time Signature HCG Qualitative Negative NEG^Negati 02/24/2018 [place] Serum ve 4:[address] [facility] Comment: This test is for screening purposes. ??R esults should be interpreted along with the clinical picture. ??Confirmation te sting is available if warranted by ordering [id number], HCG Quantitative Pregna ncy. Specimen Anatomical Collection Method Collection Time Receive d Time (Source) Location / / Volume Laterality Blood specimen 02/24/2018 3:21 PM 019 3:28 (specimen) OCCUPATIONAL THERAPY DIRECTOR PM OCCUPATIONAL THERAPY DIRECTOR Celestino Konx MD LAB - BLOOD ORDERABLES Performing Organization Address City/[facility]/ZIP Code Phon e Number Camryn [facility] [address] [place], [place] [address] [facility] [address] [place], [place] [address], [facility] [phone] Ketone Beta-Hydroxybutyrate Quantitative (02/24/2018 3:20 PM OCCUPATIONAL THERAPY DIRECTOR) P athologist Signature Ketone 0.1 0.0 - 0.6 02/24/2018 [place] Quantitative mmol/L 3:[address] [facility] Specimen Anatomical Collection Method Collection Time Receive d Time (Source) Location / / Volume Laterality Blood specimen 02/24/2018 3:20 PM 019 3:21 (specimen) OCCUPATIONAL THERAPY DIRECTOR PM OCCUPATIONAL THERAPY DIRECTOR Celestino Knox MD LAB - BLOOD ORDERABLES Performing Organization Address City/State/ZIP Code Phon e Number M [facility] [address] [place], [place] [address] [facility] [address] [place], [place] [address], [facility] [phone] Magnesium (02/24/2018 3:20 PM OCCUPATIONAL THERAPY DIRECTOR) athologist Signature Magnesium 1.8 1.6 - 2.3 02/24/2018 [facility] mg/dL 3:52 PM [facility] Specimen Anatomical Collection Method Collection Time Receive d Time (Source) Location / / Volume Laterality Blood specimen 02/24/2018 3:20 PM 019 3:21 (specimen) OCCUPATIONAL THERAPY DIRECTOR PM OCCUPATIONAL THERAPY DIRECTOR Celestino Knox MD LAB - BLOOD ORDERABLES Performing Organization Address [facility]/ZIP [facility] Phon e Number [facility] [address] [place], [place] [address] [place] [address] [address] [place], [place] [address], [facility] [phone] (ABNORMAL) Alcohol level blood (02/24/2018 3:20 PM OCCUPATIONAL THERAPY DIRECTOR) athologist Signature Ethanol g/dL 0.06 (H) <0.01 g/dL 02/24/2018 [place] 3:[address] [facility] Specimen Anatomical Collection Method Collection Time Receive d Time (Source) Location / / Volume Laterality Blood specimen 02/24/2018 3:20 PM 019 3:21 (specimen) OCCUPATIONAL THERAPY DIRECTOR PM OCCUPATIONAL THERAPY DIRECTOR Celestino Knox MD LAB - BLOOD ORDERABLES Performing Organization Address City/[facility]/ZIP Code Phon e Number [facility] [address] [place], [place] [address] [facility] [address] [place], [place] [address], [facility] [phone] INR (02/24/2018 3:20 PM OCCUPATIONAL THERAPY DIRECTOR) athologist Signature INR 1.00 0.86 - 1.14 02/24/2018 [facility] 3:46 PM [facility] Specimen Anatomical Collection Method Collection Time Receive d Time (Source) Location / / Volume Laterality Blood specimen 02/24/2018 3:20 PM 019 3:21 (specimen) OCCUPATIONAL THERAPY DIRECTOR PM OCCUPATIONAL THERAPY DIRECTOR Celestino Knox MD LAB - BLOOD ORDERABLES Performing Organization Address City/State/ZIP Code Phon e Number M [facility] [address] [place], [place] [address] [facility] [address] [place], [place] [address], [facility] [phone] (ABNORMAL) Comprehensive metabolic panel (02/24/2018 3:20 PM OCCUPATIONAL THERAPY DIRECTOR) athologist Signature Sodium 139 133 - 144 02/24/2018 [place] mmol/L 3:[address] [facility] Potassium 3.3 (L) 3.4 - 5.3 02/24/2018 [place] mmol/L 3:[address] [facility] Chloride 103 94 - 109 02/24/2018 [place] mmol/L 3:[address] [facility] Carbon Dioxide 27 20 - 32 02/24/2018 [place] mmol/L 3:[address] [facility] Anion Gap 9 3 - 14 02/24/2018 [place] mmol/L 3:[address] [facility] Glucose 114 (H) 70 - 99 02/24/2018 [place] mg/dL 3:[address] [facility] Urea Nitrogen 6 (L) 7 - 30 02/24/2018 [place] mg/dL 3:[address] [facility] Creatinine 0.63 0.52 - 02/24/2018 [place] 1.04 mg/dL 3:[address] [facility] GFR Estimate >90 >60 02/24/2018 [place] mL/min/{1. 3:51 PM [facility] 73_m2} HOSPITAL Comment: Non GFR Calc Starting 02/03/2018, serum creatinine ba sed estimated GFR (eGFR) will be calculated using the Chronic Kidney Dise [facility] Epidemiology Collaboration (CKD-EPI) equation. GFR Estimate If >90 >60 mL/min/{1.73_m2} 02/24/2018 3: 51 PM [facility] Comment: GFR Calc Starting 02/03/2018, serum creatinine ba sed estimated GFR (eGFR) will be calculated using the Chronic Kidney Dise [facility] Epidemiology Collaboration (CKD-EPI) equation. Calcium 8.4 (L) 8.5 - 10.1 02/24/2018 3:51 PM [facility] mg/dL [facility] Bilirubin Total 0.8 0.2 - 1.3 mg/dL 02/24/2018 3:52 PM [facility] Albumin 3.6 3.4 - 5.0 g/dL 02/24/2018 3:52 PM [facility] Protein Total 7.8 6.8 - 8.8 g/dL 02/24/2018 3:52 PM [facility] Alkaline Phosphatase 129 40 - 150 U/L 02/24/2018 3:52 PM [facility] ALT 241 (H) 0 - 50 U/L 02/24/2018 3:52 PM [facility] AST 326 (H) 0 - 45 U/L 02/24/2018 3:52 PM [facility] Specimen Anatomical Collection Method Collection Time Receive d Time (Source) Location / / Volume Laterality Blood specimen 02/24/2018 3:20 PM 019 3:21 (specimen) OCCUPATIONAL THERAPY DIRECTOR PM OCCUPATIONAL THERAPY DIRECTOR Celestino Knox MD LAB - BLOOD ORDERABLES Performing Organization Address City/State/ZIP Code Phon e Number M [facility] [address] [place] [address] [facility] [address] [phone] (ABNORMAL) CBC (platelets, no diff) (02/24/2018 3:20 PM [facility]) athologist Signature WBC 3.9 (L) 4.0 - 11.0 02/24/2018 [facility] 10e9/L 3:[address] [facility] RBC Count 4.24 3.8 - 5.2 02/24/2018 [facility] 10e12/L 3:[address] [facility] Hemoglobin 13.9 11.7 - 02/24/2018 [facility] 15.7 g/dL 3:[address] [facility] Hematocrit 40.9 35.0 - 02/24/2018 [facility] 47.0 % 3:[address] [facility] MCV 97 78 - 100 02/24/2018 [facility] fl 3:[address] [facility] MCH 32.8 26.5 - 02/24/2018 [facility] 33.0 pg 3:[address] [facility] MCHC 34.0 31.5 - 02/24/2018 [facility] 36.5 g/dL 3:[address] [facility] RDW 11.8 10.0 - 02/24/2018 [facility] 15.0 % 3:[address] [facility] Platelet Count 135 (L) 150 - 450 02/24/2018 [facility] 10e9/L 3:[address] [facility] Specimen Anatomical Collection Method Collection Time Receive d Time (Source) Location / / Volume Laterality Blood specimen 02/24/2018 3:20 PM 019 3:21 (specimen) OCCUPATIONAL THERAPY DIRECTOR PM OCCUPATIONAL THERAPY DIRECTOR Celestino Knox MD LAB - BLOOD ORDERABLES Performing Organization Address City/State/ZIP Code Phon e Number [place] [address] [phone] EKG 12 lead (02/24/2018 1:32 PM OCCUPATIONAL THERAPY DIRECTOR) [facility] gist Method Time Signature Interpretation ECG Click View RADIOLOGY Image link RESULTS to view waveform and result Specimen (Source) Anatomical Collection Method Collection Time Re ceived Time Location / / Volume Laterality 02/24/2018 1:32 PM OCCUPATIONAL THERAPY DIRECTOR Christopher Carrion MD ECG ORDERABLES Performing Organization Address City/State/ZIP [facility] Phon e Number RADIOLOGY RESULTS documented in this encounter Visit Diagnoses Diagnosis Alcohol withdrawal syndrome with complic ation (H) Non-intractable vomiting with nausea, un specified vomiting type documented in this encounter Administered Medications Inactive Administered Medications - up to 3 most recent administrations Medication Order MAR Action Action Date Dose Rate Site 0.9% sodium chloride BOLUS New Bag 02/24/2018 3:27 PM OCCUPATIONAL THERAPY DIRECTOR 1,000 mLs 1000 mL/hr Intravenous, 1,000 mL, ONCE, at 1,000 mL/hr, Administer over 1 Hours, On Fri02/24/18 at 1506, For 1 dose diazepam (VALIUM) injection 5 mg Given 02/24/2018 3:28 PM OCCUPATIONAL THERAPY DIRECTOR 5 mg 5 mg, Intravenous, Administer over 1-4 Minutes, ONCE, On Fri02/24/18 at 1506, For 1 dose, Vesicant. For ordered doses up to 20 mg, give IV Push undiluted. Administer each 5mg over 1 minute. See IV push link for additional instructions. ondansetron (ZOFRAN) injection 8 mg Given 02/24/2018 3:28 PM OCCUPATIONAL THERAPY DIRECTOR 8 mg 8 mg, Intravenous, ONCE, Administer over 2-5 Minutes, On 02/24/18 at 1506, For 1 dose, Irritant. For ordered IV doses 0.1-4 mg, give IV Push undiluted over 2-5 minutes. potassium chloride ER (K-DUR/KLOR-CON M) CR Given 02/24/2018 4:06 PM OCCUPATIONAL THERAPY DIRECTOR 40 mEq tablet 40 mEq 40 mEq, Oral, ONCE, On Fri02/24/18 at 1550, For 1 dose, DO NOT CRUSH documented in this encounter Active and Recently Administered Medications Times are shown in OCCUPATIONAL THERAPY DIRECTOR. Scheduled Medication Order 02/22/2018 02/23/2018 02/24/2018 0.9% [...] CRUSH documented in this encounter Care Teams Crystal Slicer Relationship Specialty Start Date End Date Clinic, [facility] PCP - General 01/20/18 06/28/[address] [place] [address] documented as of this encounter
--- OUTSIDE RECORDS SUMMARY | 2021-12-05 19:23 | XMS_ITS | Encounter Summary ---
:1980 Author Organization [place] Address [address] [facility] [place] [address] Care Team Providers Name Role Phone Clinic, [facility] Primary Care Provide r Encounter Details [...] at Date Recorded Female 01/14/2020 10:57 AM SET UP MACHINIST documented as of this encounter Plan of Treatment Upcoming Encounters Date Type Specialty Care Team Description 12/20/2021 Office Visit Wound Care Luis Camara DPM [address] [place], [place] [phone] (Wo rk) 01/21/2022 Office Visit Gastroenterology Juanis Levi [address] [place] [phone] Luis Fernando Miles MD [address] [facility] [address] [place], [place] [address] documented as of this encounter Visit Diagnoses Not on filedocumented in this encounter Additional Health Concerns Assessment Noted Time PHQ-9 Depression Total Score: 10 07/08/2018 1:27 PM CD T documented as of this encounter Care Teams Assembling Motor Builder Relationship Specialty Start Date End Date Clinic, [facility] PCP - General 01/20/18 06/28/[address] [place] [address] documented as of this encounter
--- OUTSIDE RECORDS SUMMARY | 2021-12-05 19:23 | XMS_ITS | Encounter Summary ---
:1980 Author Organization [place] Address [address] [facility] [place] [address] Care Team Providers Name Role Phone [facility] Primary Care Provide r [...] Date Recorded Female 01/14/2020 10:57 AM BILINGUAL STUDENT TUTOR documented as of this encounter Plan of Treatment Upcoming Encounters Date Type Specialty Care Team Description 12/20/2021 Office Visit Wound Care Luis Camara DPM [address] [place], [place] [phone] (Wo rk) 01/21/2022 Office Visit Gastroenterology Juanis Levi [address] [place] [address] Luis Fernando Miles MD [address] [facility] [address] [place], [place] [address] documented as of this encounter Visit Diagnoses Not on filedocumented in this encounter Care Teams Lgsw Relationship Specialty Start Date End Date Clinic, [facility] PCP - General 01/20/18 06/28/21 [facility] [employer] [place] [address] documented as of this encounter
--- OUTSIDE RECORDS SUMMARY | 2021-12-05 19:23 | XMS_ITS | Encounter Summary ---
:1980 Author Organization [place] Address [address] [facility] [place] [address] Care Team Providers Name Role Phone Clinic, [facility] Primary Care Provide r Encounter Details [...] Date Recorded Female 01/14/2020 10:57 AM POWER REGULATOR documented as of this encounter Plan of Treatment Upcoming Encounters Date Type Specialty Care Team Description 12/20/2021 Office Visit Wound Care Luis Camara DPM [address] [place], [place] [phone] (Wo rk) 01/21/2022 Office Visit Gastroenterology Juanis Levi [address] [place] [address] Luis Fernando Miles MD [address] [facility] [address] [place], [place] [phone] documented as of this encounter Visit Diagnoses Not on filedocumented in this encounter Additional Health Concerns Assessment Noted Time PHQ-9 Depression Total Score: 10 07/08/2018 1:27 PM CD T documented as of this encounter Care Teams Sales Representative Groceries Relationship Specialty Start Date End Date Clinic, [facility] PCP - General 01/20/18 06/28/[address] [place] [id number] documented as of this encounter
--- OUTSIDE RECORDS SUMMARY | 2021-12-05 19:23 | XMS_ITS | Encounter Summary ---
:1980 Author Organization [place] Address [facility] [place] [address] Care Team Providers Name Role Phone Clinic, [facility] Primary Care Provide r Reason for Visit Reason Comments Alcohol Problem Encounter Details Date Type Department Care Team Description 05/04/[address] 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 VS [...] agreeable towards. Patient will be transferred to [facility] for further treatment [...] provider's statements to me. Leydi Dye 05/04/2018 [facility] EMERGENCY DEPARTMENT Christopher Carrion MD 05/05/18 0019 documented in this encounter Plan of Treatment Upcoming Encounters Date Type Specialty Care Team Description 12/20/2021 Office Visit Wound Care Luis Camara DPM [address] [place] [address] (Wo rk) 01/21/2022 Office Visit Gastroenterology Juanis Levi [address] [place] [address] Luis Fernando Miles MD [address] [address] documented as of this encounter Procedures Procedure [...] Signature Magnesium 2.0 1.6 - 2.3 05/04/[address] [facility] mg/dL 9:02 PM CDT HOSPITAL Specimen Anatomical Collection Method Collection Time Receive d Time (Source) Location / / Volume Laterality Blood specimen 05/04/2018 8:30 PM 019 8:42 (specimen) CDT PM CDT Christopher Carrion MD LAB - BLOOD ORDERABLES Performing Organization Address City/State/ZIP Code Phon e Number [place] [address] [place] [address] HOSPITAL [facility] [address] [phone] (ABNORMAL) Comprehensive metabolic panel (05/04/2018 8:30 PM CDT) athologist Signature Sodium 139 133 - 144 05/04/2018 [place] mmol/L 8:54 PM [facility] Potassium 3.2 (L) 3.4 - 5.3 05/04/2018 [place] mmol/L 8:54 PM [facility] Chloride 103 94 - 109 05/04/2018 [place] mmol/L 8:54 PM [facility] Carbon Dioxide 28 20 - 32 05/04/2018 [facility] mmol/L 9:01 PM [facility] Anion Gap 8 3 - 14 05/04/2018 [facility] mmol/L 9:01 PM [facility] Glucose 102 (H) 70 - 99 05/04/2018 [facility] mg/dL 9:01 PM [facility] Urea Nitrogen 5 (L) 7 - 30 05/04/2018 [facility] mg/dL 9:01 PM [facility] Creatinine 0.68 0.52 - 05/04/2018 [facility] 1.04 mg/dL 9:01 PM [facility] GFR Estimate >90 >60 05/04/2018 [place] mL/min/{1. 9:01 PM [facility] 73_m2} HOSPITAL Comment: Non GFR Calc Starting 02/03/2018, serum creatinine ba sed estimated GFR (eGFR) will be calculated using the Chronic Kidney Dise [facility] Epidemiology Collaboration (CKD-EPI) equation. GFR Estimate If >90 >60 mL/min/{1.73_m2} 05/04/2018 9: 01 PM [facility] Comment: GFR Calc Starting 02/03/2018, serum creatinine ba sed estimated GFR (eGFR) will be calculated using the Chronic Kidney Dise [facility] Epidemiology Collaboration (CKD-EPI) equation. Calcium 8.5 8.5 - 10.1 05/04/2018 9:01 PM [facility] mg/dL [facility] Bilirubin Total 1.2 0.2 - 1.3 mg/dL 05/04/2018 9:[address] [facility] Albumin 4.1 3.4 - 5.0 g/dL 05/04/2018 9:02 PM [facility] Protein Total 8.6 6.8 - 8.8 g/dL 05/04/2018 9:02 PM [facility] Alkaline Phosphatase 157 (H) 40 - 150 U/L 05/04/2018 9:[address] [facility] ALT 173 (H) 0 - 50 U/L 05/04/2018 9:02 PM [facility] AST 250 (H) 0 - 45 U/L 05/04/2018 9:02 PM [facility] Specimen Anatomical Collection Method Collection Time Receive d Time (Source) Location / / Volume Laterality Blood specimen 05/04/2018 8:30 PM 019 8:42 (specimen) CDT PM CDT Christopher Carrion MD LAB - BLOOD ORDERABLES Performing Organization Address City/State/ZIP Code Phon e Number M [facility] [address] [place], [place] [address] [facility] [address] [phone] (ABNORMAL) CBC with platelets differential (05/04/2018 8:30 PM CDT) [facility] gist Method Time Signature WBC 4.2 4.0 - 05/04/2018 [facility] 11.0 8:45 PM [facility] 10e9/L HOSPITAL RBC Count 4.55 3.8 - 5.2 05/04/2018 [facility] 10e12/L 8:45 PM [facility] Hemoglobin 14.8 11.7 - 05/04/2018 [facility] 15.7 g/dL 8:45 PM [facility] Hematocrit 43.9 35.0 - 05/04/2018 [facility] 47.0 % 8:45 PM [facility] MCV 97 78 - 100 05/04/2018 [facility] fl 8:45 PM [facility] MCH 32.5 26.5 - 05/04/2018 [facility] 33.0 pg 8:45 PM [facility] MCHC 33.7 31.5 - 05/04/2018 [facility] 36.5 g/dL 8:45 PM [facility] RDW 13.3 10.0 - 05/04/2018 [facility] 15.0 % 8:45 PM [facility] Platelet Count 144 (L) 150 - 450 05/04/2018 [facility] 10e9/L 8:45 PM [facility] Diff Method Automated 05/04/2018 [facility] Method 8:45 PM [facility] % Neutrophils 49.5 % 05/04/2018 [facility] 8:45 PM [facility] % Lymphocytes 39.2 % 05/04/2018 [facility] 8:45 PM [facility] % Monocytes 8.4 % 05/04/2018 [facility] 8:45 PM [facility] % Eosinophils 2.2 % 05/04/2018 [place] 8:45 PM [facility] % Basophils 0.7 % 05/04/2018 [place] 8:45 PM [facility] % Immature 0.0 % 05/04/2018 [place] Granulocytes 8:45 PM [facility] Nucleated RBCs 0 0 /100 05/04/2018 [place] 8:45 PM [facility] Absolute 2.1 1.6 - 8.3 05/04/2018 [facility] Neutrophil 10e9/L 8:45 PM [facility] Absolute 1.6 0.8 - 5.3 05/04/2018 [place] Lymphocytes 10e9/L 8:45 PM [facility] Absolute 0.4 0.0 - 1.3 05/04/2018 [place] Monocytes 10e9/L 8:45 PM [facility] Absolute 0.1 0.0 - 0.7 05/04/2018 [place] Eosinophils 10e9/L 8:45 PM [facility] Absolute 0.0 0.0 - 0.2 05/04/2018 [place] Basophils 10e9/L 8:45 PM [facility] Abs Immature 0.0 0 - 0.4 05/04/2018 [place] Granulocytes 10e9/L 8:45 PM [facility] Absolute 0.0 05/04/2018 [place] Nucleated RBC 8:45 PM [facility] Specimen Anatomical Collection Method Collection Time Receive d Time (Source) Location / / Volume Laterality Blood specimen 05/04/2018 8:30 PM 019 8:42 (specimen) CDT PM CDT Christopher Carrion MD LAB - BLOOD ORDERABLES Performing Organization Address City/State/ZIP Code Phon e Number M [facility] [address] [place] [address] [facility] [address] [phone] (ABNORMAL) Alcohol ethyl (05/04/2018 8:30 PM CDT) P athologist Signature Ethanol g/dL 0.21 (H) <0.01 g/dL 05/04/2018 [place] 9:02 PM [facility] Specimen Anatomical Collection Method Collection Time Receive d Time (Source) Location / / Volume Laterality Blood specimen 05/04/2018 8:30 PM 019 8:42 (specimen) CDT PM CDT Christopher Carrion MD LAB - BLOOD ORDERABLES Performing Organization Address City/State/ZIP Code Phon e Number M [facility] [address] [place], [place] [address] [facility] [address] [place], [place] [address] [facility] [phone] ISTAT HCG Quantitative POCT (05/04/2018 8:28 PM [...] 0117 documented in this encounter Care Teams Cad Design Engineer Relationship Specialty Start Date End Date Clinic, [facility] PCP - General 01/20/18 06/28/[address] [place] [address] [phone] documented as of this encounter
--- OUTSIDE RECORDS SUMMARY | 2021-12-05 19:24 | XMS_ITS | Encounter Summary ---
:1980 Author Organization [place] Address [address] [facility] [place] [address] Care Team Providers Name Role Phone Luis Fernando Magana Primary Care Provider Reason for Visit Reason Onset Date Comments Erroneous encounter-disregard 01/23/2017 Encounter Details Date Type Department Care Team Description 01/23/2017 Office Visit [facility] Edgar Alfredo ERRONE[facility] Ashly Gauthier MD ENCOUNTER--DISREGARD [address] [place] (Primary Dx) [address] [place] [address] Social History Tobacco Use Types Packs/Day Years Used Date Smoking Tobacco: Every Day Cigarettes 0.1 10 Smokeless Tobacco: Never Comments: 5 cigarettes a day Alcohol Use Standard Drinks/Week Comments Yes 0 (1 standard drink = 0.6 oz pure Stoppe d after found out alcohol) Sex Assigned at Date Recorded Female 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 Please disregard. TRIC PLATER documented in this encounter Plan of Treatment Upcoming Encounters Date Type Specialty Care Team Description 12/20/2021 Office Visit Wound Care Luis Camara, [place] [address] [place], [place] [phone] (Wo rk) 01/21/2022 Office Visit Gastroenterology Juanis Levi [address] [place] [address] Luis Fernando Miles MD 516 [facility] [address] [place], [place] [phone] documented as of this encounter Visit Diagnoses Diagnosis ERRONEOUS ENCOUNTER--DISREGARD - Primary documented in this encounter Care Teams Technology Consultant Relationship Specialty Start Date End Date Luis Fernando Magana PCP - General Family Practice 12/07/16 01/19/[address] [address] documented as of this encounter
--- OUTSIDE RECORDS SUMMARY | 2021-12-05 19:24 | XMS_ITS | Encounter Summary ---
:1980 Author Organization [place] Address [address] [facility] [place] [address] Care Team Providers Name Role Phone Luis Fernando Magana Primary Care Provider Reason for Visit Reason Onset Date Comments Erroneous encounter-disregard 04/02/2017 Encounter Details Date Type Department Care Team Description 03/31/2017 Office Visit [facility] Edgar Alfredo ERRONEOUS Clinic Ashly Gauthier MD ENCOUNTER--DISREGARD [address] [place] (Primary Dx) [address] [place] [address] Social History Tobacco Use Types Packs/Day Years Used Date Smoking Tobacco: Every Day Cigarettes 0.1 10 Smokeless Tobacco: Never Comments: 5 cigarettes a day Alcohol Use Standard Drinks/Week Comments Yes 0 (1 standard drink = 0.6 oz pure Stoppe d after found out alcohol) Sex Assigned at Date Recorded Female 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 Please disregard. TESTER documented in this encounter Plan of Treatment Upcoming Encounters Date Type Specialty Care Team Description 12/20/2021 Office Visit Wound Care Luis Camara, [place] [address] [place], [place] [phone] (Wo rk) 01/21/2022 Office Visit Gastroenterology Juanis Levi [address] [place] [address] Luis Fernando Miles MD 516 [facility] [address] [place], [place] [phone] documented as of this encounter Visit Diagnoses Diagnosis ERRONEOUS ENCOUNTER--DISREGARD - Primary documented in this encounter Care Teams Quantitative Software Engineer Relationship Specialty Start Date End Date Luis Fernando Magana PCP - General Family Practice 12/07/16 01/19/[address] [address] documented as of this encounter
--- OUTSIDE RECORDS SUMMARY | 2021-12-05 19:24 | XMS_ITS | Encounter Summary ---
:1980 Author Organization [place] Address [address] [place] [address] Care Team Providers Name Role Phone Luis Fernando Magana Primary Care Provider Encounter Details Date Type Department Care Team Description 04/07/2017 Telephone [facility] Nithya Alfredo MD [place] [address] [facility] [address] [place], [place] [phone] [place] [phone] Social History Tobacco Use Types Packs/Day Years Used Date Smoking Tobacco: Every Day Cigarettes 0.1 10 Smokeless Tobacco: Never Comments: 5 cigarettes a day Alcohol Use Standard Drinks/Week Comments Yes 0 (1 standard drink = 0.6 oz pure Stoppe d after found out alcohol) Sex Assigned at Date Recorded Female 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/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 documented as of this encounter Miscellaneous Notes Telephone Encounter - Edgar Alfredo MD - 04/07/2017 12:38 PM CST Called patient re: missed appointment Please add on 04/10/17 at 2:30 Bridge ordered ISION MACHINIST documented in this encounter Plan of Treatment Upcoming Encounters Date Type Specialty Care Team Description 12/20/2021 Office Visit Wound Care Luis Camara, [place] [address] [place], [place] [address] (Wo rk) 01/21/2022 Office Visit Gastroenterology Juanis Levi [address] [place] [phone] Luis Fernando Miles MD 516 [facility] [address] [place], [place] [address] documented as of this encounter Visit Diagnoses Diagnosis Uncomplicated opioid dependence (H) Opioid type dependence, unspecified documented in this encounter Care Teams Packaging Inspector Relationship Specialty Start Date End Date Luis Fernando Magana PCP - General Family Practice 12/07/16 01/19/[address] [address] documented as of this encounter
--- OUTSIDE RECORDS SUMMARY | 2021-12-05 19:24 | XMS_ITS | Encounter Summary ---
:1980 Author Organization [place] Address [address] [facility] [place] [address] Care Team Providers Name Role Phone Luis Fernando Magana Primary Care Provider Reason for Visit Reason Onset Date Comments Erroneous encounter-disregard 04/24/2017 Encounter Details Date Type Department Care Team Description 04/22/2017 Office Visit [facility] Edgar Alfredo ERRONEOUS Clinic Ashly Gauthier MD ENCOUNTER--DISREGARD [address] [place] (Primary Dx) [address] [place] [address] Social History Tobacco Use Types Packs/Day Years Used Date Smoking Tobacco: Every Day Cigarettes 0.1 10 Smokeless Tobacco: Never Comments: 5 cigarettes a day Alcohol Use Standard Drinks/Week Comments Yes 0 (1 standard drink = 0.6 oz pure Stoppe d after found out alcohol) Sex Assigned at Date Recorded Female 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 Please disregard. DISPATCHER documented in this encounter Plan of Treatment Upcoming Encounters Date Type Specialty Care Team Description 12/20/2021 Office Visit Wound Care Luis Camara, [place] [address] [place], [place] [phone] (Wo rk) 01/21/2022 Office Visit Gastroenterology Juanis Levi [address] [place] [address] Luis Fernando Miles MD 516 [facility] [address] [place], [place] [phone] documented as of this encounter Visit Diagnoses Diagnosis ERRONEOUS ENCOUNTER--DISREGARD - Primary documented in this encounter Care Teams Chief Risk Officer Relationship Specialty Start Date End Date Luis Fernando Magana PCP - General Family Practice 12/07/16 01/19/[address] [address] documented as of this encounter
--- OUTSIDE RECORDS SUMMARY | 2021-12-05 19:24 | XMS_ITS | Encounter Summary ---
:1980 Author Organization [place] Address [address] [facility] [place] [address] Care Team Providers Name Role Phone Luis Fernando Magana Primary Care Provider Reason for Visit Reason Onset Date Comments Medication Request 07/01/2017 Subutex bridge Encounter Details Date Type Department Care Team Description 07/01/2017 Telephone [facility] Edgar Alfredo, [facility] ication Request Clinic Ashly VÁSQUEZ (Subutex bridge ) [address] [place] [address] [place] [phone] (Wo rk) Social History Tobacco Use Types Packs/Day Years Used Date Smoking Tobacco: Every Day Cigarettes 0.1 10 Smokeless Tobacco: Never Comments: 5 cigarettes a day Alcohol Use Standard Drinks/Week Comments Yes 0 (1 standard drink = 0.6 oz pure Stoppe d after found out alcohol) Sex Assigned at Date Recorded Female 01/14/2020 10:57 AM EXPANDER documented as of this encounter Miscellaneous Notes [...] negative for all substances, positive for [facility] ATT[employer] reviewed and summarized below: 05.27.2017 - Subutex - 112/28 days (refill from script on 04.24.2017) Ludmila Vega RN on 07/01/2017 at 3:47 PM Telephone Encounter - Mark Roldan - 07/01/2017 3:29 PM CDT Reason for Call: Medication or medication refill: Do you use a [facility]? Name of the pharmacy and phone number for the current request: [facility] [place] tel: [phone] Name of the medication requested: Subutex 2 [...] be reached at: Home number on file [phone] (home) Best Time: Anytime Call taken on 07/01/2017 at 3:29 PM by Mark Roldan documented in this encounter Plan of Treatment Upcoming Encounters Date Type Specialty Care Team Description 12/20/2021 Office Visit Wound Care Luis Camara DPM [address] [place], [place] [phone] (Wo rk) 01/21/2022 Office Visit Gastroenterology Juanis Levi [address] [place] [phone] Luis Fernando Miles MD 516 [facility] [address] [place], [place] [address] documented as of this encounter Visit Diagnoses Diagnosis Uncomplicated opioid dependence (H) Opioid type dependence, unspecified documented in this encounter Care Teams Maintenance Associate Relationship Specialty Start Date End Date Luis Fernando Magana PCP - General Family Practice 12/07/16 01/19/[address] [address] documented as of this encounter
--- OUTSIDE RECORDS SUMMARY | 2021-12-05 19:24 | XMS_ITS | Encounter Summary ---
:1980 Author Organization [place] Address [address] [facility] [place] [address] Care Team Providers Name Role Phone Luis Fernando Magana Primary Care Provider Reason for Visit Reason Comments Addiction Problem Encounter Details Date Type Department Care Team Description 04/24/2017 Office Visit [facility] Edgar Alfredo Uncomplic ated opioid Clinic Ashly Gauthier MD dependence (H) [address] [place] [phone] Social History Tobacco Use Types Packs/Day Years Used Date Smoking Tobacco: Every Day Cigarettes 0.1 10 Smokeless Tobacco: Never Comments: 5 cigarettes a day Alcohol Use Standard Drinks/Week Comments Yes 0 (1 standard drink = 0.6 oz pure Stoppe d after found out alcohol) Sex Assigned at Date Recorded Female 01/14/2020 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 PRODUCTION 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 documented as of this encounter Last Filed Vital Signs Vital Sign Reading Time Taken Comments Blood Pressure 112/66 04/24/2017 4:44 PM BIODIESEL PRODUCTION TECHNICIAN Pulse 86 04/24/2017 4:44 PM BIODIESEL PRODUCTION TECHNICIAN Temperature 37 ??C (98.6 ??F) 04/24/2017 4:44 PM BIODIESEL PRODUCTION TECHNICIAN Respiratory Rate 12 04/24/2017 4:44 PM BIODIESEL PRODUCTION TECHNICIAN Oxygen Saturation 100% 04/24/2017 4:44 PM BIODIESEL PRODUCTION TECHNICIAN Inhaled Oxygen Concentration - - Weight 82.1 kg (181 lb) 04/24/2017 4:44 PM BIODIESEL PRODUCTION TECHNICIAN Height - - Body Mass Index 29.21 [...] contact you when it is ready to cherry picker operator You are at risk for overdose ( [...] is generally not enough to lead to half-way recovery. This may include having some type [...] one. The addiction medicine clinic number is [phone]. If you cannot make your appointment please call the office and reschedule immediately. If you are out of medication a bridge can be sent to your pharmacy to last until the date of your rescheduled appointment. Our clinic is open from Friday-Friday 0800-4:30pm and there is not an SUPERVISOR GROUNDS after hours service. If medical care is [...] you do not run out of medications. [facility] does not accept [place] app[employer]ach or [employer] Medical assistance insurance. IESEL PRODUCTION TECHNICIAN documented in this encounter Progress Notes Edgar [...] been going to recovery meetings:not at all. [place] Board of Pharmacy Data Base Reviewed: YES; [...] So Luciano MD; Location: [facility] OR ??? ORTHOPAEDIC GENERAL SURGERY ??? ORTHOPEDIC SURGERY ??? THORACIC SURGERY [...] Panel 13 Result Value Ref Range Cannabinoids ([id number]) Not Detected NDET^Not Detected ng/mL Phencyclidine (Phencyclidine) [...] ng/mL 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 FOR JAIL USE OF HIGH RISK MEDICATION High Risk [...] visit in 2 [address] Edgar Alfred[address] MD [facility] documented in this encounter Nursing [...] kg). Medication Reconciliation: complete Sabina Mckay CMA IESEL PRODUCTION TECHNICIAN documented in this encounter Plan of Treatment Upcoming Encounters Date Type Specialty Care Team Description 12/20/2021 Office Visit Wound Care Luis Camara DPM [address] [place], [place] [phone] (Wo rk) 01/21/2022 Office Visit Gastroenterology Juanis Levi [address] [place] [phone] Luis Fernando Miles MD [address] [id number] documented as of this encounter Procedures Procedure Name Priority Date/Time Associated Diagnosis Comme nts URINE DRUGS OF Routine 04/24/2017 5:16 PM Uncomplicated opioid Results for this ABUSE SCREEN PANEL BIODIESEL PRODUCTION TECHNICIAN dependence (H) procedu re are in 13 the results section. documented in this encounter Results (ABNORMAL) Urine Drugs of Abuse Screen Panel 13 (04/24/2017 5:16 PM BIODIESEL PRODUCTION TECHNICIAN) [facility] Method Time Signature Cannabinoids Not Detected NDET^Not 04/24/2017 [facility] (69-nzk-9-carbox Detected 6:02 PM BIODIESEL PRODUCTION TECHNICIAN y-9-THC) ng/mL Comment: Cutoff for a negative cannabino id is 50 ng/mL or less. Phencyclidine Not Detected NDET^Not Detected 04/24/2017 6:02 PM LAB (Phencyclidine) ng/mL BIODIESEL PRODUCTION TECHNICIAN Comment: Cutoff for a negative PCP is 25 ng/mL or less. Cocaine (Benzoylecgonine) Not Detected NDET^Not Detected 0 04/24/2017 6:02 PM [facility] ng/mL BIODIESEL PRODUCTION TECHNICIAN Comment: Cutoff for a negative cocaine i s 150 ng/ml or less. Methamphetamine Not Detected NDET^Not 04/24/2017 6:02 PM [facility] (d-Methamphetamine) Detected ng/mL BIODIESEL PRODUCTION TECHNICIAN Comment: Cutoff for a negative methamphe tamine is 500 ng/ml or less. Opiates (Morphine) Not Detected NDET^Not Detected 04/25/19 18 6:02 PM BIODIESEL PRODUCTION TECHNICIAN [facility] ng/mL Comment: Cutoff for a negative opiate is 100 ng/ml or less. Amphetamine Not Detected NDET^Not Detected 04/24/2017 6:02 P M LAB (d-Amphetamine) ng/mL BIODIESEL PRODUCTION TECHNICIAN Comment: Cutoff for a negative amphetami ne is 500 ng/mL or less. Benzodiazepines Not Detected NDET^Not Detected 04/24/2017 6: 02 PM LAB (Nordiazepam) ng/mL BIODIESEL PRODUCTION TECHNICIAN Comment: Cutoff for a negative benzodiaz epine is 150 ng/ml or less. Tricyclic Antidepressants Not Detected NDET^Not Detected 0 04/24/2017 6:02 PM LAB (Desipramine) ng/mL BIODIESEL PRODUCTION TECHNICIAN Comment: Cutoff for a negative tricyclic antidepressant is 300 ng/ml or less. Methadone (Methadone) Not Detected NDET^Not Detected 018 6:02 PM [facility] ng/mL BIODIESEL PRODUCTION TECHNICIAN Comment: Cutoff for a negative methadone is 200 ng/ml or less. Barbiturates Not Detected NDET^Not Detected 04/24/2017 6:02 PM [facility] (Butalbital) ng/mL BIODIESEL PRODUCTION TECHNICIAN Comment: Cutoff for a negative barbituat e is 200 ng/ml or less. Oxycodone (Oxycodone) Not Detected NDET^Not Detected 018 6:02 PM [facility] ng/mL BIODIESEL PRODUCTION TECHNICIAN Comment: Cutoff for a negative Oxycodone is 100 ng/mL or less. Propoxyphene Not Detected NDET^Not Detected 04/24/2017 6:02 PM [facility] (Norpropoxyphene) ng/mL BIODIESEL PRODUCTION TECHNICIAN Comment: Cutoff for a negative propoxyph tina is 300 ng/ml or less Buprenorphine Detected, NDET^Not 04/24/2017 6:02 PM [facility] (Buprenorphine) Abnormal Result Detected ng/mL BIODIESEL PRODUCTION TECHNICIAN (A) Comment: Cutoff for a positive buprenorphine is g reater than 10 ng/ml. This is an unconfirmed screening result to be used for medical purposes only. Order [id number] for confirmation or indivi dual confirmation tests to [facility]. Specimen Anatomical Collection Method Collection Time Receive d Time (Source) Location / / Volume Laterality Urine specimen 04/24/2017 5:16 PM 018 5:17 (specimen) BIODIESEL PRODUCTION TECHNICIAN PM BIODIESEL PRODUCTION TECHNICIAN Edgar Alfredo MD LAB - URINE ORDERABLES Performing Organization Address City/State/[facility] [place] [address] [facility] [address] [facility] documented in this encounter Visit Diagnoses Diagnosis Uncomplicated opioid dependence (H) Opioid type dependence, unspecified documented in this encounter Care Teams Fisher Seal Relationship Specialty Start Date End Date Luis Fernando Magana PCP - General Family Practice 12/07/16 01/19/[address] [address] documented as of this encounter
--- OUTSIDE RECORDS SUMMARY | 2021-12-05 19:24 | XMS_ITS | Encounter Summary ---
:1980 Author Organization [place] Address [address] [facility] [place] [address] Care Team Providers Name Role Phone Luis Fernando Magana Primary Care Provider Reason for Visit Reason Onset Date Comments Refill Request 03/05/2017 buprenorphine (SUBUT EX) 2 MG SUBL Encounter Details Date Type Department Care Team Description 03/05/2017 Refill [facility] Edgar Alfredo, Ref ill Request Clinic Ashly VÁSQUEZ (buprenorphine (SUBUTEX) [address] MG SUBL) [address] [place] [phone] (Wo rk) Social History Tobacco Use Types Packs/Day Years Used Date Smoking Tobacco: Every Day Cigarettes 0.1 10 Smokeless Tobacco: Never Comments: 5 cigarettes a day Alcohol Use Standard Drinks/Week Comments Yes 0 (1 standard drink = 0.6 oz pure Stoppe d after found out alcohol) Sex Assigned at Date Recorded Female 01/14/2020 10:57 AM WELT SLASHER documented as of this encounter Miscellaneous Notes Telephone Encounter - Edgar Alfredo MD - 03/06/2017 2:21 PM CST Spoke to patient Bridge called in SLASHER Telephone Encounter - Santosh Pyle RN - [...] acreeda. Pt's insurance is not accepted at [facility] and but will be changed on March 20. Pt's insurance is not covered in clinic and pt will be switching to [facility] next month Will forward to Dr. Alfredo. Santosh Pyle RN SLASHER Telephone Encounter - Santosh Pyle RN - 03/06/2017 11:56 AM CST Skip Tracer attempted to call pt, No answer. LVM for Pt to call clinic back and schedule an Appt at [phone]. Santosh Pyle RN SLASHER Telephone Encounter - Edgar Alfredo MD - 03/06/2017 10:58 AM CST No refill until appointment is made SLASHER Telephone Encounter - Santosh Pyle RN - 03/05/2017 11:16 AM CST buprenorphine (SUBUTEX) 2 MG SUBL sublingual tablet Controlled Substance Refill Request Last refill: 01/03/17 Last clinic visit: 10/10/16 Next appt: none scheduled Documentation in problem list reviewed: Yes Processing: call/fax RX [place] ([place]) reviewed: Rx for Oxycodone 10 and 20 mg tabs on 12/27/16. [place] profile: [email or web address] Pt had Appt's scheduled on 01/23/17, 12/23/16, 11/26/16 and didn't make it to any of these Appt's Last Appt was on 10/10/16. No Appt's scheduled. Dr. Alfredo would you like to see Pt in the clinic again? Santosh Pyle RN SLASHER Telephone Encounter - Dora Merchant - 03/05/2017 10:40 AM CST Last Written Prescription Date: 01/03/17 Last Fill Quantity: 100, # refills: 0 Last Office Visit with [facility], [email or web address] or [facility] prescribing provider: 10/13/16 Future Office Visit: Requested Prescriptions Pending Prescriptions Disp Refills ??? buprenorphine (SUBUTEX) 2 MG SUBL sublingual tablet 100 tablet 0 Sig: Place 1 tablet (2 mg) under the tongue 5 times daily There is no refill protocol information for this order SLASHER documented in this encounter Plan of Treatment Upcoming Encounters Date Type Specialty Care Team Description 12/20/2021 Office Visit Wound Care Luis Camara DPM [address] [place], [place] [phone] (Wo rk) 01/21/2022 Office Visit Gastroenterology Juanis Levi [address] [place] [address] Luis Fernando Miles MD [address] [facility] [address] [place] [address] documented as of this encounter Visit Diagnoses Diagnosis Uncomplicated opioid dependence (H) Opioid type dependence, unspecified documented in this encounter Care Teams Electric Meter Setter Relationship Specialty Start Date End Date Luis Fernando Magana PCP - General Family Practice 12/07/16 01/19/[address] [address] documented as of this encounter
--- OUTSIDE RECORDS SUMMARY | 2021-12-05 19:24 | XMS_ITS | Encounter Summary ---
:1980 Author Organization [place] Address [address] [place] [address] Care Team Providers Name Role Phone Luis [...] Date Recorded Female 01/14/2020 10:57 AM CORE DRILLER HELPER documented as of this encounter Miscellaneous [...] call. Will continue to follow and support. DRILLER HELPER documented in this encounter Plan of Treatment Upcoming Encounters Date Type Specialty Care Team Description 12/20/2021 Office Visit Wound Care Luis Camara DPM [address] [facility] [place] [address] (Wo rk) 01/21/2022 Office Visit Gastroenterology Juanis Levi [address] [place] [phone] Luis Fernando Miles MD [address] [facility] [address] [place], [place] [phone] documented as of this encounter Visit Diagnoses Not on filedocumented in this encounter Care Teams Sexual Assault Social Worker Relationship Specialty Start Date End Date Luis Fernando Magana PCP - General Family Practice 12/07/16 01/19/[address] [address] documented as of this encounter
--- OUTSIDE RECORDS SUMMARY | 2021-12-05 19:24 | XMS_ITS | Encounter Summary ---
:1980 Author Organization [place] Address Critical access [place] [place] [address] Care Team Providers Name Role Phone Clinic, [facility] Primary Care Provide r Reason for Visit Reason Comments Chest Pain Encounter Details Date Type Department Care Team Description 01/20/2018 - Emergency [facility] Marycarmen Banks Alcohol withdrawal syndrome without complication (H); 01/21/2018 [facility] Emergency MD Angelina Anxiety Dept [facility] [address] [place] [address] [facility] [address] [place], [place] [phone] (Wo rk) Social History Tobacco Use Types Packs/Day Years Used Date Smoking Tobacco: Every Day Cigarettes 0.1 10 Smokeless Tobacco: Never Comments: 5 cigarettes a day Alcohol Use Standard Drinks/Week Comments Yes 0 (1 standard drink = 0.6 oz pure alcoho l) binge drinks Sex Assigned at Date Recorded Female 01/14/2020 10:57 AM PIN MAKER documented as of this encounter Last Filed Vital Signs Vital Sign Reading Time Taken Comments Blood Pressure 135/80 01/21/2018 12:30 AM PIN MAKER Pulse 84 01/20/2018 10:52 PM PIN MAKER Temperature 36.8 ??C (98.2 ??F) 01/20/2018 10:23 PM PIN MAKER Respiratory Rate 17 01/21/2018 12:30 AM PIN MAKER Oxygen Saturation 98% 01/21/2018 12:30 AM PIN MAKER Inhaled Oxygen Concentration - - Weight - [...] CST IV cannula removed from RAC intact MAKER Shukri Fuentes RN - 01/20/2018 10:24 PM [...] Palpations Time: 2218 Vent. Rate 98 bpm. WI interval 150. QRS duration 86. QT/QTc 376/480. [...] provider's statements to me. Nora Correa 01/20/2018 [facility] EMERGENCY DEPARTMENT Marycarmen Banks MD 01/21/18 0058 MAKER documented in this encounter Plan of Treatment Upcoming Encounters Date Type Specialty Care Team Description 12/20/2021 Office Visit Wound Care Luis Camara DPM [address] [place] [address] (Wo rk) 01/21/2022 Office Visit Gastroenterology Juanis Levi [address] [place] [address] Luis Fernando Miles MD [address] [id number] documented as of this encounter Procedures Procedure Name Priority Date/Time Associated Comments Diagnosis XR CHEST 2 VIEWS STAT 01/20/2018 10:58 Results for this PM PIN MAKER procedure are i n the results section. CBC WITH PLATELETS & STAT 01/20/2018 10:36 Res ults for this DIFFERENTIAL PM PIN MAKER procedure are i n the results section. TROPONIN I STAT 01/20/2018 10:36 Results for this PM PIN MAKER procedure are i n the results section. MAGNESIUM Routine 01/20/2018 10:36 Results for this PM PIN MAKER procedure are i n the results section. D DIMER QUANTITATIVE Routine 01/20/2018 10:36 Res ults for this PM PIN MAKER procedure are i n the results section. COMPREHENSIVE STAT 01/20/2018 10:36 Results fo r this METABOLIC PANEL PM PIN MAKER procedure ar e in the results section. ETHYL ALCOHOL LEVEL Routine 01/20/2018 10:36 Resu lts for this PM PIN MAKER procedure are i n the results section. EKG 12-LEAD, TRACING STAT 01/20/2018 10:18 Res ults for this ONLY PM PIN MAKER procedure are i n the results section. documented in this encounter Results Chest XR, PA & LAT (01/20/2018 10:58 PM PIN MAKER) Anatomical Region Laterality Modality Chest Digital Radiography Specimen (Source) Anatomical Location Collection Method / Collectio n Time Received Time / Laterality Volume Impressions 01/20/2018 11:03 PM PIN MAKER IMPRESSION: No radiographic evidence of acute chest abnormality. GIOVANNI RHODES MD Narrative 01/20/2018 11:03 PM PIN MAKER CHEST TWO VIEWS 01/20/2018 10:58 PM HISTORY: [...] IMAGING ORDER JEFFERY Magnesium (01/20/2018 10:36 PM PIN MAKER) athologist Signature Magnesium 2.1 1.6 - 2.3 01/20/2018 [facility] mg/dL 11:02 PM [facility] Specimen Anatomical Collection Method Collection Time Receive d Time (Source) Location / / Volume Laterality 01/20/2018 10:36 01/20/2018 PM PIN MAKER 10:37 PM PIN MAKER Marycarmen Banks MD LAB - BLOOD ORDERABLES Performing Organization Address City/[facility] e [facility] [address] [place], [place] [address] [phone] [phone] Alcohol ethyl (01/20/2018 10:36 PM PIN MAKER) athologist Signature Ethanol g/dL <0.01 <0.01 g/dL 01/20/2018 [place] 11:02 PM [facility] Specimen Anatomical Collection Method Collection Time Receive d Time (Source) Location / / Volume Laterality 01/20/2018 10:36 01/20/2018 PM PIN MAKER 10:37 PM PIN MAKER Marycarmen Banks MD LAB - BLOOD ORDERABLES Performing Organization Address City/[facility]/[place] [address] [place], [place] [address] [place] [address] [phone] D dimer quantitative (01/20/2018 10:36 PM [facility]) athologist Signature D Dimer 0.4 0.0 - 0.50 01/20/2018 [facility] ug/ml FEU 10:56 PM [facility] Comment: This D-dimer assay is [...] / Volume Laterality 01/20/2018 10:36 01/20/2018 PM PIN MAKER 10:37 PM PIN MAKER Marycarmen Banks MD LAB - BLOOD ORDERABLES Performing Organization Address City/[facility]/ZIP [facility] Phon e Number Camryn [facility] [address] [place], [place] [address] [facility] [address] [place], [place] [address], [facility] [phone] Troponin I (01/20/2018 10:36 PM PIN MAKER) athologist [facility] Troponin I ES <0.015 0.000 - 01/20/2018 [place] 0.045 ug/L 11:02 PM [facility] Comment: The 99th percentile for upper reference range is 0.045 ug/L. ??Troponin values in the range of 0.045 - 0.120 ug/L may b e associated with risks of adverse clinical events. Specimen Anatomical Collection Method Collection Time Receive d Time (Source) Location / / Volume Laterality Blood specimen 01/20/2018 10:36 8 (specimen) PM PIN MAKER 10:37 PM PIN MAKER Marycarmen Banks MD LAB - BLOOD ORDERABLES Performing Organization Address [facility]/ZIP [facility] Phon e Number Camryn [facility] [address] [place], [place] [address] [facility] [address] [place], [place] [address], [facility] [phone] (ABNORMAL) Comprehensive metabolic panel (01/20/2018 10:36 PM PIN MAKER) [facility] Sodium 136 133 - 144 01/20/2018 [place] mmol/L 11:02 PM [facility] Potassium 3.5 3.4 - 5.3 01/20/2018 [place] mmol/L 11:02 PM [facility] Chloride 102 94 - 109 01/20/2018 [place] mmol/L 11:02 PM [facility] Carbon Dioxide 28 20 - 32 01/20/2018 [place] mmol/L 11:02 PM [facility] Anion Gap 6 3 - 14 01/20/2018 [place] mmol/L 11:02 PM [facility] Glucose 103 (H) 70 - 99 01/20/2018 [place] mg/dL 11:02 PM [facility] Urea Nitrogen 7 7 - 30 01/20/2018 [place] mg/dL 11:02 PM [facility] Creatinine 0.76 0.52 - 01/20/2018 [place] 1.04 mg/dL 11:02 PM [facility] GFR Estimate 86 >60 01/20/2018 [place] mL/min/1.7 11:[address] Comment: Non GFR Calc GFR Estimate If >90 >60 mL/min/1.7m2 01/20/2018 11:02 PM [facility] Comment: GFR Calc Calcium 8.8 8.5 - 10.1 01/20/2018 11:02 PM [facility] mg/dL [facility] Bilirubin Total 1.5 (H) 0.2 - 1.3 mg/dL 01/20/2018 11:02 P [facility] Albumin 3.9 3.4 - 5.0 g/dL 01/20/2018 11:02 PM [facility] Protein Total 8.3 6.8 - 8.8 g/dL 01/20/2018 11:02 PM [facility] Alkaline Phosphatase 129 40 - 150 U/L 01/20/2018 11:02 PM [facility] ALT 202 (H) 0 - 50 U/L 01/20/2018 11:02 PM [facility] AST 266 (H) 0 - 45 U/L 01/20/2018 11:02 PM [facility] Specimen Anatomical Collection Method Collection Time Receive d Time (Source) Location / / Volume Laterality Blood specimen 01/20/2018 10:36 8 (specimen) PM PIN MAKER 10:37 PM PIN MAKER Marycarmen Banks MD LAB - BLOOD ORDERABLES Performing Organization Address City/State/ZIP Code Phon e Number M [facility] [address] [place], [place] [address] [facility] [address] [place], [place] [address] [phone] (ABNORMAL) CBC with platelets differential (01/20/2018 10:36 PM PIN MAKER) [facility] gist Method Time Signature WBC 5.0 4.0 - 01/20/2018 [facility] 11.0 10:43 PM [facility] 10e9/L [facility] RBC Count 4.58 3.8 - 5.2 01/20/2018 [facility] 10e12/L 10:[address] [facility] Hemoglobin 15.3 11.7 - 01/20/2018 [facility] 15.7 g/dL 10:[address] [facility] Hematocrit 44.9 35.0 - 01/20/2018 [facility] 47.0 % 10:[address] [facility] MCV 98 78 - 100 01/20/2018 [facility] fl 10:43 [facility] MCH 33.4 (H) 26.5 - 01/20/2018 [facility] 33.0 pg 10:43 [facility] MCHC 34.1 31.5 - 01/20/2018 [facility] 36.5 g/dL 10:43 [facility] RDW 11.8 10.0 - 01/20/2018 [facility] 15.0 % 10:[address] [facility] Platelet Count 170 150 - 450 01/20/2018 [facility] 10e9/L 10:[address] [facility] Diff Method Automated 01/20/2018 [facility] Method 10:[address] [facility] % Neutrophils 61.7 % 01/20/2018 [facility] 10:[address] [facility] % Lymphocytes 28.4 % 01/20/2018 [facility] 10:43 [facility] % Monocytes 7.1 % 01/20/2018 [facility] 10:43 [facility] % Eosinophils 2.2 % 01/20/2018 [facility] 10:[address] [facility] % Basophils 0.4 % 01/20/2018 [facility] 10:43 [facility] % Immature 0.2 % 01/20/2018 [facility] Granulocytes 10:43 [facility] Nucleated RBCs 0 0 /100 01/20/2018 [facility] 10:[address] [facility] Absolute 3.1 1.6 - 8.3 01/20/2018 [facility] Neutrophil 10e9/L 10:[address] [facility] Absolute 1.4 0.8 - 5.3 01/20/2018 [facility] Lymphocytes 10e9/L 10:[address] [facility] Absolute 0.4 0.0 - 1.3 01/20/2018 [facility] Monocytes 10e9/L 10:[address] [facility] Absolute 0.1 0.0 - 0.7 01/20/2018 [place] Eosinophils 10e9/L 10:[address] [facility] Absolute 0.0 0.0 - 0.2 01/20/2018 [place] Basophils 10e9/L 10:[address] [facility] Abs Immature 0.0 0 - 0.4 01/20/2018 [facility] Granulocytes 10e9/L 10:[address] [facility] Absolute 0.0 01/20/2018 [place] Nucleated RBC 10:[address] [facility] Specimen Anatomical Collection Method Collection Time Receive d Time (Source) Location / / Volume Laterality Blood specimen 01/20/2018 10:36 8 (specimen) PM PIN MAKER 10:37 PM PIN MAKER Marycarmen Banks MD LAB - BLOOD ORDERABLES Performing Organization Address City/[facility]/ZIP Code Phon e Number [place] [address] [place] [address] [place] [address] [phone] EKG 12-lead, tracing only (01/20/2018 10:18 PM PIN MAKER) [facility] gist Method Time Signature Interpretation ECG Click View RADIOLOGY Image link RESULTS to view waveform and result Specimen (Source) Anatomical Collection Method Collection Time Re ceived Time Location / / Volume Laterality 01/20/2018 10:18 PM PIN MAKER Marycarmen Banks MD ECG ORDERABLES Performing Organization Address City/State/ZIP [facility] Phon e Number RADIOLOGY RESULTS documented in [...] 1,000 mLs 1000 mL/hr Intravenous, 1,000 mL, PIN MAKER ONCE, at 1,000 mL/hr, Administer over 1 Hours, On Fri01/20/18 at 2256, For 1 dose diphenhydrAMINE (BENADRYL) injection 25 mg Given 01/20/2018 11:36 PM PIN MAKER 25 mg 25 mg, Intravenous, ONCE, On 01/20/18 at 2330, For 1 dose, For ordered IV doses 1-50 mg, give IV Push undiluted. Give each 25mg over a minimum of 1 minute. Extend in non-emergency LORazepam (ATIVAN) injection 1 mg Given 01/20/2018 10:48 PM PIN MAKER 1 mg 1 mg, Intravenous, ONCE, On 01/20/18 at 2242, For 1 dose, For IV PUSH: Dilute with equal volume of NS. For ordered IV doses 0.1-4 mg give IV Push. Administer each 2mg over 1-5 minutes. multivitamin w/minerals (THERA-VIT-M) Given 01/20/2018 11:34 PM PIN MAKER 1 tablet tablet 1 tablet 1 tablet, Oral, ONCE, On 01/20/18 at 2330, For 1 dose ondansetron (ZOFRAN) injection 4 mg Given 01/20/2018 10:48 PM PIN MAKER 4 mg 4 mg, Intravenous, ONCE, Administer over 2-5 Minutes, On 01/20/18 at 2242, For 1 dose, Irritant. For ordered IV doses 0.1-4 mg, give IV Push undiluted over 2-5 minutes. prochlorperazine (COMPAZINE) injection 5 mg Given 01/20/2018 11:35 PM PIN MAKER 5 mg 5 mg, Intravenous, ONCE, Administer over 1-2 Minutes, On 01/20/18 at 2330, For 1 dose, For ordered IV doses 0.1-10 mg, give IV Push undiluted. Each 5mg over 1 minute. vitamin B1 (THIAMINE) tablet 100 mg Given 01/20/2018 11:35 PM PIN MAKER 100 mg 100 mg, Oral, ONCE, On e 01/20/18 at 2330, For 1 dose documented in this encounter Active and Recently Administered Medications Times are shown in PIN MAKER. Scheduled Medication Order 01/19/2018 01/20/2018 01/21/2018 0.9% [...] dose documented in this encounter Care Teams Airport Operations Crew Member Relationship Specialty Start Date End Date Clinic, [facility] PCP - General 01/20/18 06/28/21 [address] [place] [address] documented as of this encounter
--- OUTSIDE RECORDS SUMMARY | 2021-12-05 19:24 | XMS_ITS | Encounter Summary ---
:1980 Author Organization [place] Address [address] [facility] [place] [address] Care Team Providers Name Role Phone Luis Fernando Magana Primary Care Provider Reason for Visit Reason Onset Date Comments Refill Request 10/31/2017 buprenorphine (SUBUT EX) 2 MG SUBL sublingual tablet Encounter Details Date Type Department Care Team Description 10/31/2017 Refill [facility] Edgar Alfredo, Ref ill Request Clinic Ashly VÁSQUEZ (buprenorphine (SUBUTEX) [address] [place] 2 MG SUBL sublingual [address] tablet) [place] [phone] (Wo rk) Social History Tobacco Use Types Packs/Day Years Used Date Smoking Tobacco: Every Day Cigarettes 0.1 10 Smokeless Tobacco: Never Comments: 5 cigarettes a day Alcohol Use Standard Drinks/Week Comments Yes 0 (1 standard drink = 0.6 oz pure Stoppe d after found out alcohol) Sex Assigned at Date Recorded Female 01/14/2020 10:57 AM SCHOOL ADMINISTRATOR documented as of this encounter Miscellaneous [...] Visit Wound Care Luis Camara DPM [address] [place] [address] (Wo rk) 01/21/2022 Office Visit Gastroenterology Juanis Levi [address] [place] [phone] Luis Fernando Miles MD [address] [facility] [address] [place] [address] documented as of this encounter Visit Diagnoses Diagnosis Uncomplicated opioid dependence (H) Opioid type dependence, unspecified documented in this encounter Care Teams Chief Nurse Anesthetist Relationship Specialty Start Date End Date Luis Fernando Magana PCP - General Family Practice 12/07/16 01/19/[address] [address] documented as of this encounter
--- OUTSIDE RECORDS SUMMARY | 2021-12-05 19:24 | XMS_ITS | Encounter Summary ---
:1980 Author Organization [place] Address [address] [facility] [place] [address] Care Team Providers Name Role Phone Luis Fernando Magana Primary Care Provider Reason for Visit Reason Onset Date Comments Medication Request 04/29/2017 call in subutex Encounter Details Date Type Department Care Team Description 04/29/2017 Telephone [facility] Edgar Alfredo, [facility] ication Request Clinic Ashly VÁSQUEZ (call in subutex) [address] [place] [address] [place] [phone] (Wo rk) Social History Tobacco Use Types Packs/Day Years Used Date Smoking Tobacco: Every Day Cigarettes 0.1 10 Smokeless Tobacco: Never Comments: 5 cigarettes a day Alcohol Use Standard Drinks/Week Comments Yes 0 (1 standard drink = 0.6 oz pure Stoppe d after found out alcohol) Sex Assigned at Date Recorded Female 01/14/2020 10:57 AM CLINICAL RESEARCH NURSE COORDINATOR documented as of this encounter Miscellaneous Notes Telephone Encounter - Santosh Pyle RN - 04/29/2017 4:02 PM CDT Rx called into Pt's pharmacy Santosh Pyle RN Telephone Encounter - Vickie Espinal - 04/29/2017 3:56 PM CDT Reason for Call: Medication or medication refill: Do you use a [facility]? Name of the pharmacy and phone number for the current request: [facility] in [place] [phone] Name of the medication requested: subutex Other request: Please call in subutex that was ordered 04/24/[address] Alfredo. Per patient and pharmacy it was never called in. Thanks. Can we leave a detailed message on this number? YES Phone number patient can be reached at: Home number on file [phone] (home) Best Time: anytime Call taken on 04/29/2017 at 3:56 PM by Vickie Espinal documented in this encounter Plan of Treatment Upcoming Encounters Date Type Specialty Care Team Description 12/20/2021 Office Visit Wound Care Luis Camara DPM [address] [place], [place] [phone] (Wo rk) 01/21/2022 Office Visit Gastroenterology Juanis Levi [address] [place] [phone] Luis Fernando Miles MD 516 [facility] [address] [place], [place] [address] documented as of this encounter Visit Diagnoses Not on filedocumented in this encounter Care Teams Supervisor Fertilizer Processing Relationship Specialty Start Date End Date Luis Fernando Magana PCP - General Family Practice 12/07/16 01/19/[address] [address] documented as of this encounter
--- OUTSIDE RECORDS SUMMARY | 2021-12-05 19:24 | XMS_ITS | Encounter Summary ---
:1980 Author Organization [place] Address [address] [place] [address] Care Team Providers Name Role Phone Luis Fernando Magana Primary Care Provider Reason for Visit Reason Comments RECHECK Encounter Details Date Type Department Care Team Description 01/16/[address] [facility] Mecca Cyr S/P e mergency hysterectomy (Primary Dx); [facility] MD Christopher Slow transit constipation; [place] [address] RONNIE Wound infection [address] [place] [employer] [place], [place] [facility] [address] [address] [address] [place], [place] (Work) [address] [phone] Social History Tobacco Use Types Packs/Day Years Used Date Smoking Tobacco: Every Day Cigarettes 0.1 10 Smokeless Tobacco: Never Comments: 5 cigarettes a day Alcohol Use Standard Drinks/Week Comments Yes 0 (1 standard drink = 0.6 oz pure Stoppe d after found out alcohol) Sex Assigned at Date Recorded Female 01/14/2020 10:57 AM CABLE HOOKER documented as of this encounter Last Filed Vital Signs Vital Sign Reading Time Taken Comments Blood Pressure 119/78 01/16/2017 1:31 PM CABLE HOOKER Pulse 87 01/16/2017 1:31 PM CABLE HOOKER Temperature - - Respiratory Rate - - [...] at that time Mecca Cyr MD FACOG E HOOKER documented in this encounter Nursing Notes Antonella Castro CMA - 01/16/2017 1:30 PM CST Chief Complaint Patient presents with ??? 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
--- OUTSIDE RECORDS SUMMARY | 2021-12-05 19:24 | XMS_ITS | Encounter Summary ---
:1980 Author Organization [place] Address [address] [facility] [place] [address] Care Team Providers Name Role Phone Luis Fernando Magana Primary Care Provider Reason for Visit Reason Onset Date Comments Call Back 08/11/2017 Insurance questions Encounter Details Date Type Department Care Team Description 08/11/2017 Telephone [facility] Edgar Workman Cal l Back (Insurance Clinic [place] questions ) [address] [place] [address] [place] [phone] (Wo rk) Social History Tobacco Use Types Packs/Day Years Used Date Smoking Tobacco: Every Day Cigarettes 0.1 10 Smokeless Tobacco: Never Comments: 5 cigarettes a day Alcohol Use Standard Drinks/Week Comments Yes 0 (1 standard drink = 0.6 oz pure Stoppe d after found out alcohol) Sex Assigned at Date Recorded Female 01/14/2020 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 Will forward to [facility] provider for review. Telephone Encounter - Kari Turner - 09/04/2017 12:17 PM CDT Pt called regarding the same issue. Pt states she is still unable to switch her Insurance from [facility] (which [facility] does not accept) to [employer] (which we do accept). Pt stated they can not switch her until the end of 2017. Pt is requesting a call back from [facility] to discuss this further and request bridges of subx till she can switch insurances. Pt# [phone] (okay to leave detailed message) Kari Turner Heavy Coil Winder Telephone Encounter - Edgar Workman MD - 08/11/2017 4:59 PM CDT Discussed with patient Advised find doctor that prescribes Suboxone [place] TELEPHONE CLEANER - no issues 1 month bridge called [...] be reached at: Home number on file [phone] (home) Best Time: anytime Can we leave a detailed message on this number? YES Call taken on 08/11/2017 at 12:43 PM by Mark Roldan documented in this encounter Plan of Treatment Upcoming Encounters Date Type Specialty Care Team Description 12/20/2021 Office Visit Wound Care Luis Camara DPM [address] [place] [address] (Wo rk) 01/21/2022 Office Visit Gastroenterology Juanis Levi [address] [place] [phone] Luis Fernando Miles MD 516 [facility] [address] [place] [address] documented as of this encounter Visit Diagnoses Diagnosis Uncomplicated opioid dependence (H) Opioid type dependence, unspecified Major depressive disorder, recurrent epi sode, moderate (H) Major depressive disorder, recurrent epi sode, moderate documented in this encounter Care Teams Senior Contracts Administrator Relationship Specialty Start Date End Date Luis Fernando Magana PCP - General Family Practice 12/07/16 01/19/[address] [address] documented as of this encounter
--- OUTSIDE RECORDS SUMMARY | 2021-12-05 19:24 | XMS_ITS | Encounter Summary ---
:1980 Author Organization [place] Address [address] [facility] [place] [address] Care Team Providers Name Role Phone Luis Fernando Magana Primary Care Provider Reason for Visit Reason Onset Date Comments Forms 03/12/2017 extended leave Encounter Details Date Type Department Care Team Description 03/12/2017 Telephone [facility] Women's Nurse, [facility] Forms (extended leave) Clinic [place] [address] [facility] Professional Bldg [facility] [address] [place], [place] [phone] Social History Tobacco Use Types Packs/Day Years Used Date Smoking Tobacco: Every Day Cigarettes 0.1 10 Smokeless Tobacco: Never Comments: 5 cigarettes a day Alcohol Use Standard Drinks/Week Comments Yes 0 (1 standard drink = 0.6 oz pure Stoppe d after found out alcohol) Sex Assigned at Date Recorded Female 01/14/2020 10:57 AM PAVER LAYER documented as of this encounter Miscellaneous Notes Telephone Encounter - Gregoria Villanueva RN - 03/13/2017 3:[address] Cyr approved 3 more months of assistance for Stephani. Form was signed and faxed back to [facility].Scanned into chart. Copy emailed to patient. R LAYER Telephone Encounter - Gregoria Villanueva RN - 03/12/2017 12:41 PM CST Spoke with Stephani who is a couple months and had a premature baby that was in NICU here andthen transferred to [facility] to be closer to home. Her baby is home now and she is not ready to go back to work. She is getting assistance with housing, food, and monthly funding. [facility] MD to sign a form stating that the patient had a complicated post- period in order for these services to be continued. Patient will email them to clinic for review. R LAYER documented in this encounter Plan of Treatment Upcoming Encounters Date Type Specialty Care Team Description 12/20/2021 Office Visit Wound Care Luis Camara DPM [address] [place], [place] [phone] (Wo rk) 01/21/2022 Office Visit Gastroenterology Juanis Levi [address] [place] [phone] Luis Fernando Miles MD [address] [id number] documented as of this encounter Visit Diagnoses Not on filedocumented in this encounter Care Teams Respiratory Therapy Director Relationship Specialty Start Date End Date Luis Fernando Magana PCP - General Family Practice 12/07/16 01/19/[address] [address] documented as of this encounter
--- OUTSIDE RECORDS SUMMARY | 2021-12-05 19:24 | XMS_ITS | Encounter Summary ---
:1980 Author Organization [place] Address [address] [facility] [place] [address] Care Team Providers Name Role Phone Luis Fernando Magana Primary Care Provider Reason for Visit Reason Onset Date Comments Erroneous encounter-disregard 04/11/2017 Encounter Details Date Type Department Care Team Description 04/10/2017 Office Visit [facility] Edgar Alfredo ERRONEOUS Clinic Ashly Gauthier MD ENCOUNTER--DISREGARD [address] [place] (Primary Dx) [address] [place] [phone] Social History Tobacco Use Types Packs/Day Years Used Date Smoking Tobacco: Every Day Cigarettes 0.1 10 Smokeless Tobacco: Never Comments: 5 cigarettes a day Alcohol Use Standard Drinks/Week Comments Yes 0 (1 standard drink = 0.6 oz pure Stoppe d after found out alcohol) Sex Assigned at Date Recorded Female 01/14/2020 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 Please disregard. NG OFFICER documented in this encounter Plan of Treatment Upcoming Encounters Date Type Specialty Care Team Description 12/20/2021 Office Visit Wound Care Luis Camara, [place] [address] [place], [place] [phone] (Wo rk) 01/21/2022 Office Visit Gastroenterology Juanis Levi [address] [place] [address] Luis Fernando Miles MD [address] [facility] [address] [place], [place] [phone] documented as of this encounter Visit Diagnoses Diagnosis ERRONEOUS ENCOUNTER--DISREGARD - Primary documented in this encounter Care Teams Middle School Coach Relationship Specialty Start Date End Date Luis Fernando Magana PCP - General Family Practice 12/07/16 01/19/[address] [address] documented as of this encounter
--- OUTSIDE RECORDS SUMMARY | 2021-12-05 19:24 | XMS_ITS | Encounter Summary ---
:1980 Author Organization [place] Address [address] [facility] [place] [address] Care Team Providers Name Role Phone Luis Fernando Magana Primary Care Provider Reason for Visit Reason Onset Date Comments Refill Request 01/02/2017 Subutex Encounter Details Date Type Department Care Team Description 01/02/2017 Refill [facility] Edgar Alfredo, Ref ill Request (Subutex) Clinic [place] [address] [place] [address] [place] [phone] (Wo rk) Social History Tobacco Use Types Packs/Day Years Used Date Smoking Tobacco: Every Day Cigarettes 0.1 10 Smokeless Tobacco: Never Comments: 5 cigarettes a day Alcohol Use Standard Drinks/Week Comments Yes 0 (1 standard drink = 0.6 oz pure Stoppe d after found out alcohol) Sex Assigned at Date Recorded Female 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 Documentation in problem list reviewed: Yes Processing: Fax Rx to pt's pharmacy RX monitoring program ([place]) reviewed: FINANCIAL PLANNING ANALYST reviewed- Pt received 2 prescriptions for oxycodone frommindy Leyva [facility] profile: [email or web address] Thank you! Laura Fried RN NT TRUCK LOADER Telephone Encounter - Dora Merchant - 01/02/2017 1:44 PM CST Reason for Call: Other prescription Detailed comments: Pt states that she discharged from the hospital on 12/27/16, and would like a refill on Subutex Phone Number Patient can be reached at: Home number on file [phone] (home) Best Time: Anytime Can we leave a detailed message on this number? YES Call taken on 01/02/2017 at 1:44 PM by Dora Merchant NT TRUCK LOADER documented in this encounter Plan of Treatment Upcoming Encounters Date Type Specialty Care Team Description 12/20/2021 Office Visit Wound Care Luis Camara DPM [address] [place], [place] [address] (Wo rk) 01/21/2022 Office Visit Gastroenterology Juanis Levi [address] [place] [phone] Luis Fernando Miles MD [address] [id number] documented as of this encounter Visit Diagnoses Diagnosis Uncomplicated opioid dependence (H) Opioid type dependence, unspecified documented in this encounter Care Teams Title Manager Relationship Specialty Start Date End Date Luis Fernando Magana PCP - General Family Practice 12/07/16 01/19/[address] [address] documented as of this encounter
--- OUTSIDE RECORDS SUMMARY | 2021-12-05 19:24 | XMS_ITS | Encounter Summary ---
:1980 Author Organization [place] Address [address] [facility] [place] [address] Care Team Providers Name Role Phone Luis Fernando Magana Primary Care Provider Reason for Visit Reason Comments Medication Refill WELLBUTRIN SR 150 MG 12 hr t ablet Encounter Details Date Type Department Care Team Description 05/26/2017 Refill [facility] Edgar Alfredo, Med ication Refill Clinic Ashly VÁSQUEZ (WELLBUTRIN SR [address] MG [address] [place] hr tablet) [address] [place] [phone] (Wo rk) Social History Tobacco Use Types Packs/Day Years Used Date Smoking Tobacco: Every Day Cigarettes 0.1 10 Smokeless Tobacco: Never Comments: 5 cigarettes a day Alcohol Use Standard Drinks/Week Comments Yes 0 (1 standard drink = 0.6 oz pure Stoppe d after found out alcohol) Sex Assigned at Date Recorded Female 01/14/2020 10:57 AM 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 documented as of this encounter Miscellaneous Notes [...] Office Visit Wound Care Luis Camara DPM [address] [place], [place] [address] (Wo rk) 01/21/2022 Office Visit Gastroenterology Juanis Levi [address] [place] [address] Luis Fernando Miles MD [address] [place] [address] documented as of this encounter Visit Diagnoses Diagnosis Major depressive disorder, recurrent epi sode, moderate (H) Major depressive disorder, recurrent epi sode, moderate Uncomplicated opioid dependence (H) Opioid type dependence, unspecified documented in this encounter Care Teams Part Time Receptionist Relationship Specialty Start Date End Date Luis Fernando Magana PCP - General Family Practice 12/07/16 01/19/18 [place] [address] documented as of this encounter
--- OUTSIDE RECORDS SUMMARY | 2021-12-05 19:24 | XMS_ITS | Encounter Summary ---
:1980 Author Organization [place] Address [address] [place] [address] Care Team Providers Name Role Phone Luis [...] Date Recorded Female 01/14/2020 10:57 AM CORPORATE INTERN documented as of this encounter Miscellaneous Notes Note - Marycarmen Mohamud RN - 01/20/2017 2:10 PM CST This note was copied from a baby's chart. Phone call made to [phone] in attempt to reach mother Stephani regarding breast milk and breast feeding. There was a voicemail. I left a message for the mother to call me regarding an update. No patient information revealed, only to contact myself at the NICU phone number. It appears that no breast milk has been received from home. Donor milk will end when baby reaches 34 wks. ORATE INTERN documented in this encounter Plan of Treatment Upcoming Encounters Date Type Specialty Care Team Description 12/20/2021 Office Visit Wound Care Luis Camara, [place] [address] [place] [address] (Wo rk) 01/21/2022 Office Visit Gastroenterology Juanis Levi [address] [place] [phone] Luis Fernando Miles MD [address] [facility] [address] [place] [address] documented as of this encounter Visit Diagnoses Not on filedocumented in this encounter Care Teams Adding Machine Servicer Relationship Specialty Start Date End Date Luis Fernando Magana PCP - General Family Practice 12/07/16 01/19/[address] [address] documented as of this encounter
--- OUTSIDE RECORDS SUMMARY | 2021-12-05 19:25 | XMS_ITS | Encounter Summary ---
:1980 Author Organization [place] Address [facility] [place] [address] Care Team Providers Name Role Phone Luis Fernando Magana Primary Care Provider Reason for Referral Consultation Specialty Diagnoses / Procedures Referred By Contact Refer red To Contact Marleny Kang MD [place] [phone] Referral ID Status Reason Start Date Expiration Date Visits Requ ested Visits Authorized WRITER Specialty Diagnoses / Procedures Referred By Contact Refer red To Contact Marleny Kang MD [place] [phone] Referral ID Status Reason Start Date Expiration Date Visits Requ ested Visits Authorized WRITER Reason for Visit Reason Comments Rule out rupture of membranes Auth/Cert Specialty Diagnoses / Procedures Referred By Contact Refer red To Contact cognos lead Diagnoses Maternity*JEAN MARIE: 03/07/2017 Rupture premature rupture of membranes (PPROM) delivered, current hospitalization [facility] [address] [place] [address] Phone: Referral ID Status Reason Start Date Expiration Date Visits Requ ested Visits Authorized [id number] 12/09/2016 12/09/2017 1 1 Encounter Details Date Type Department Care Team Description 12/07/2016 - Hospital Encounter [facility] Autumn Leslie willie Alvarez MD [address] [place] [address] Chronic hepatitis C without hepatic coma (H) (Primary Dx); 12/27/2016 [facility] Birthplace Nalini Eli MD [address] [place] [address] Placenta accreta in third trimester; [address] [facility] emergency [facility]; [place], [place] Lashawn Patel MD [address] [place] [address] Dental caries; [id number] Petrona Barone DO [address] [place] [address] S/P laparotomy [phone] So Nunez MD [address] [place] [address] Social History Tobacco Use Types Packs/Day Years Used Date Smoking Tobacco: Every Day Cigarettes 0.1 10 Smokeless Tobacco: Never Comments: 5 cigarettes a day Alcohol Use Standard Drinks/Week Comments Yes 0 (1 standard drink = 0.6 oz pure Stoppe d after found out alcohol) Sex Assigned at Date Recorded Female 01/14/2020 10:57 AM TAG WRITER documented as of this encounter Last Filed Vital Signs Vital Sign Reading Time Taken Comments Blood Pressure 119/68 12/27/2016 8:00 AM TAG WRITER Pulse 90 12/27/2016 8:00 AM TAG WRITER Temperature 36.5 ??C (97.7 ??F) 12/27/2016 8:00 AM TAG WRITER Respiratory Rate 18 12/27/2016 8:00 AM TAG WRITER Oxygen Saturation 99% 12/27/2016 8:00 AM TAG WRITER Inhaled Oxygen Concentration - - Weight 83.4 kg (183 lb 14.4 oz) 12/27/2016 6:00 AM TAG WRITER Height 167.6 cm (5' 6) 12/07/2016 2:19 PM CDT Body Mass Index 29.68 12/07/2016 2:19 PM CDT documented in this encounter Discharge Summaries Petrona Barone DO - 12/27/2016 8:18 AM CST [facility] Discharge Summary Deann King Age: [age] [...] uncomplicated. She was initially given a dilaudid DRYWALL CARRIER, but was transitioned to PO medications on [...] Discharge Medications: Deann King Home Medication Instructions MAILE:[id number] Printed on:12/28/16 0625 Medication Information acetaminophen (TYLENOL) 325 MG tablet [...] machinery while on narcotics. Marleny Kang MD ENVIRONMENTAL ADVISOR PGY-3 I agree with above discharge summary Petrona Barone DO FACOG Maternal Medicine Specialist Pager: [phone] WRITER documented in this encounter Discharge Instructions Discharge InstructionsErika Villalpando RN - 12/27/2016 7:51 AM TAG WRITER Postop Instructions Activity ?? Do not lift [...] questions or concerns after you return home. WRITER documented in this encounter Medications at Time [...] family while he is in the NICU. Lopez's family are Mom, Deann, Dad Rafal and [...] Deann mentioned she has a social media director Francisco who helps them with the children. JACKIE spoke with [facility] and they report that the family has been assigned to Francisco Silverman [phone] who is manager case management with CPS ongoing. (Francisco is out of office until 01/27/17, this magnetic tape typewriter operator left ). Deann has history of substance use disorder and has been sober for 8 years. She is followed closely by Dr. Alfredo and is on Subutex. Deann also struggles with anxiety and depression, at this time she reports she is doing well. I)JACKIE confirmed with pt's [facility] [phone] that Deann is able to schedule one [...] up to visit. JACKIE spoke with NICU assistant plant manager and SW informed Deann that an exception would not be made. JACKIE left [facility] at bedside for Deann to sign so that this magnetic tape typewriter operator can coordinate care with [facility] social media director Francisco. A)JACKIE spoke with MOB Deann via [...] from [facility] 12/24/16 chart on 01/23/17 WRITER Petrona Barone, - 12/27/2016 5:20 AM CST [facility] Post- Note Name: Deann King S: [...] Routine management: Pain: S/p TAP blocks and DRYWALL CARRIER. Scheduled ibuprofen and tylenol. PO oxycodone 20 [...] plan regarding pain management Marleny Kang MD Supervisory Clerk, PGY-3 Physician Attestation IPetrona DO, saw and [...] regarding post c/hyst, opioid dependence, discharge instructions. WRITER Petrona Barone DO - 12/26/2016 6:42 AM CST [facility] Note Name: Deann King S: Patient [...] Routine management: Pain: S/p TAP blocks and DRYWALL CARRIER. Scheduled toradol, tylenol. PRN IV dilaudid and [...] and meeting postoperative goals Marleny Kang MD Supervisory Clerk, PGY-3 Physician Attestation I, Petrona Barone, DO, [...] coordinating care regarding postop care from c/hyst. WRITER Marleny Kang MD - 12/25/2016 9:54 PM [...] oximetry, discussed with RN. Marleny Kang MD ENVIRONMENTAL ADVISOR PGY-3 WRITER Marilu Lam MD - 12/25/2016 9:38 PM CST I have seen and examined this patient this AM (note delayed). She is HD stable and tolerating her recovery to date. WE have discussed the implication of her surgery and she is aware that she will not be able to have additional children, but is grateful to be feeling well. Marilu Lam WRITER Petrona Barone DO - 12/25/2016 5:44 AM CST [facility] Note Name: Deann King S: Patient [...] b/l I/O last 3 completed shifts: In: 95984 [I.V.:4800] Out: 5900 [Urine:900; Blood:5000] Hgb: Hemoglobin [...] 2. cares: Pain: S/p TAP blocks. Dilaudid DRYWALL CARRIER with scheduled tylenol. Holding NSAIDs until Hgb [...] Hypothyroidism: - Continue synthroid. Marleny Kang MD Supervisory Clerk, PGY-3 Physician Attestation I, Petrona Barone DO, [...] tolerance. Labs stable. Toradol given now. Increase DRYWALL CARRIER to 0.3mg continuous with 0.3-0.5mg bumps. Total [...] regarding post op pain, recovery plan, etc. WRITER Marleny Kang MD - 12/25/2016 2:56 AM CST [facility] Note Name: Deann King S: Patient [...] b/l I/O last 3 completed shifts: In: 53500 [I.V.:4800] Out: 5900 [Urine:900; Blood:5000] Hgb: Hemoglobin [...] 2. cares: Pain: S/p TAP blocks. Dilaudid DRYWALL CARRIER with scheduled tylenol, will increase demand dose. Holding NSAIDsuntil Hgb stabilizes. Continue home subutex for history of substance abuse. Supportive measures including warm packs, abdominal binder. GI: CLD, advance as tolerated. Scheduled bowel regimen ordered. : Duarte in place, strict Is/Os. Daily weights. Rh: Positive. Rubella: Non-immune, MMR ordered. Mood: Continue home effexor, wellbutrin. SW is following patient. Marleny Kang MD Supervisory Clerk, PGY-3 12/25/2016, 2:28 AM WRITER Yareli Greenwood RN - 12/24/2016 8:35 PM [...] Dr. Barone M staff and Dr. Nunez ENVIRONMENTAL ADVISOR staff were notified. Delivery plan was confirmed [...] OR notified, proceed urgently. Marleny Kang MD ENVIRONMENTAL ADVISOR PGY-3 MF staff note: Called regarding change in clinical status for patient. Delivery indicated in the setting of pretermcervical dilation, hemorrhage with known posterior placenta previa/possible accreta and prolonged ROM. S/p BMZ nearly 2 weeks ago. Magnesium sulfate for FINANCIAL ANALYSIS CONSULTANT recommended. Type and cross with blood in OR. Petrona Barone DO FACOG Maternal Medicine Specialist Pager: [phone] WRITER Petrona Barone DO - 12/24/2016 10:18 AM CST [facility] Antepartum Progress Note Subjective: She is [...] 140s, moderate variability, present accels, absent decels Westervelt: no contractions or irritability noted Imaging: See [...] bleeding. Plan c-hyst unless previa resolves with [facility] double staff. - Care conference scheduled [...] million. Needs follow up with GI or [facility] for treatment options . - Notify NICU [...] with Dr. Barone. Tatyana Walsh MD MPH ENVIRONMENTAL ADVISOR, PGY3 Pager: [phone] 12/23/2016 10:04 AM Physician Attestation I, Petrona [...] team of new symptoms. Marleny Kang MD ENVIRONMENTAL ADVISOR PGY-3 Petrona Tinoco DO - 12/23/2016 10:04 [...] 130s, moderate variability, present accels, absent decels Westervelt: quiet, no contractions Assessment/Plan: Deann King is [...] - Needs follow up with GI or [facility] for treatment options . ? 5) History [...] with Dr. Barone. Tatyana Walsh MD MPH ENVIRONMENTAL ADVISOR, PGY3 Pager: [phone] 12/23/2016 10:04 AM Physician Attestation I, Petrona [...] coordinating care regarding placenta previa/PPROM, possible accreta. WRITER Nora Mohamud MD - 12/22/2016 10:45 AM [...] 6. Hepatitis C - s/p GI at [facility] in 2013, genotype 1a - normal [...] patient): December 22, 2016 Nora Mohamud MD Accountant Controller, ENVIRONMENTAL ADVISOR Maternal- Medicine [email or web address] [phone] (Academic office) [phone] (Pager) WRITER Nora Mohamud MD - 12/21/2016 11:52 AM [...] 6. Hepatitis C - s/p GI at [facility] in 2013, genotype 1a, inpatient GI [...] patient): December 21, 2016 Nora Mohamud MD Accountant Controller, ENVIRONMENTAL ADVISOR Maternal- Medicine [email or web address] [phone] (Academic office) [phone] (Pager) Apple Sen RD - 12/20/2016 11:41 [...] protocol. Apple Sen RD, LD Unit Pager: [phone] Lashawn Patel MD - 12/20/2016 8:59 AM [...] moderate variability, + accels, rare variable decels Westervelt: quiet, 0 ctx in 10 minutes Assessment/Plan: [...] bleeding. Plan c-hyst unless previa resolves with [facility] double staff. ? 3. FWB: - [...] - Needs follow up with GI or [facility] for treatment options . ? 5. History [...] accels, absent decels - appropriate for GA. Westervelt: no contractions No intervention needed at this time. Tatyana Walsh MD MPH ENVIRONMENTAL ADVISOR, PGY3 Pager: [phone] 12/19/2016 11:56 PM Lashawn Patel MD - [...] 130s, moderate variability, + accels, no decels Westervelt: quiet, 0 ctx in 10 minutes Assessment/Plan: [...] - Needs follow up with GI or [facility] for treatment options . ? 5. History [...] accels, absent decels - appropriate for GA. Westervelt: no contractions No intervention needed at this time. Tatyana Walsh MD MPH ENVIRONMENTAL ADVISOR, PGY3 Pager: [phone] 12/19/2016 3:13 AM Lashawn Patel MD - [...] 130s, moderate variability, + accels, no decels Westervelt: quiet, 0 ctx in 10 minutes Assessment/Plan: [...] - Needs follow up with GI or [facility] for treatment options . ? 5. History [...] weeks from dose increase. Marleny Kang MD ENVIRONMENTAL ADVISOR PGY-3 Physician Attestation I, Lashawn Patel, saw [...] from scratching area. Tatyana Walsh MD MPH ENVIRONMENTAL ADVISOR, PGY3 Pager: [phone] 12/18/2016 12:08 AM Marleny Kang MD - 12/17/2016 12:35 PM CDT ENVIRONMENTAL ADVISOR Progress Note Patient complaining of right ear pain. Notes some mild nasal stuffiness. Denies fever, postnasal drip, hearing changes, other signs of systemic illness including fevers. Denies history of ear infection. Gently cleans ears. Otoscopic exam without exudate or signs of infection, clear TM, no tenderness with motion. Will give debrox drops and monitor for symptoms. Marleny Kang MD ENVIRONMENTAL ADVISOR PGY-3 Marleny Kang MD - 12/17/2016 11:29 AM CDT ENVIRONMENTAL ADVISOR Progress Note Patient seen at bedside to [...] attempt at this time. Marleny Kang MD ENVIRONMENTAL ADVISOR PGY-3 Lashawn Patel MD - 12/17/2016 6:56 [...] 150's, moderate variability, + accels, no decels Westervelt: Quiet Assessment/Plan: Deann King is a 36 [...] - Needs follow up with GI or [facility] for treatment options . ? 5. History [...] accels, absent decels - appropriate for GA. Westervelt: no contractions No intervention needed at this time. Tatyana Walsh MD MPH ENVIRONMENTAL ADVISOR, PGY3 Pager: [phone] 12/17/2016 Lashawn Patel MD - 12/16/2016 6:54 [...] 140s, moderate variability, + accels, no decels Westervelt: 0 ctx in 10 minutes, quiet Assessment/Plan: [...] - Needs follow up with GI or [facility] for treatment options . ? 5. History [...] and acupuncture as needed. Marleny Kang MD ENVIRONMENTAL ADVISOR PGY-3 Physician Attestation I, Lsahawn Patel, saw this patient with the resident [...] accels, absent decels - appropriate for GA. Westervelt: no contractions No intervention needed at this time. Tatyana Walsh MD MPH ENVIRONMENTAL ADVISOR, PGY3 Pager: [phone] 12/16/2016 2:14 AM Petrona Barone DO - [...] moderate variability, present accelerations (10x10), absent decelerations Westervelt: No contractions noted 12/03 MR IMPRESSION: 1. [...] - Needs follow up with GI or [facility] for treatment options . ? 5. History [...] bed rest. Twice weekly BPPs (/). Petrona Braone DO Date of Service (when I saw [...] 150, moderate variability, present accelerations, absent decelerations Westervelt: No contractions noted 12/03 MR IMPRESSION: 1. [...] - Needs follow up with GI or [facility] for treatment options . ? 5. History [...] patient, she is agreeable. Elizabeth Manzanares MD ENVIRONMENTAL ADVISOR Resident PGY4 Pager [phone] 12/13/[address] - 12/13/2016 12:12 [...] (nausea, vomiting) up until about a week RESIDENTIAL SUPPORT WORKER. Over the past 2 weeks she has [...] protocol. Echo Graham RD, LD Unit Pager: [phone] Nora Mohamud MD - 12/13/2016 8:50 AM [...] variable decels. Overall appropriate for gestational age. Westervelt: no contractions, quiet ? US (12/08): posterior/left [...] - Needs follow up with GI or [facility] for treatment options . ? 5. History [...] the treatment of hepatitis C with a plant specialist. A consultation was placed to discuss management [...] 6. Hepatitis C - s/p GI at [facility] in 2013, genotype 1a, inpatient GI [...] patient): December 13, 2016 Nora Mohamud MD Accountant Controller, ENVIRONMENTAL ADVISOR Maternal- Medicine [email or web address] [phone] (Academic office) [phone] (Pager) Tatyana Walsh MD - 12/13/2016 3:23 AM CDT Strip Review (Not delayed due to patient care) FHT: Baseline 150s bpm, moderate variability, prolonged accels, absent decels - appropriate for GA. Westervelt: no contractions No intervention required at this time. Tatyana Walsh MD MPH ENVIRONMENTAL ADVISOR, PGY3 Pager: [phone] 12/13/2016 3:23 AM Jess Bernstein LICSW - 12/12/2016 11:11 AM CDT Met with patient today and completed [employer] application. Application faxed today. SW will continue to follow Nora Mohamdu MD - 12/12/2016 10:45 AM CDT Images [...] small decels. Overall appropriate for gestational age. Westervelt: no contractions, quiet ? US (12/08): posterior/left [...] - Needs follow up with GI or [facility] for treatment options . ? 5. History [...] 6. Hepatitis C - s/p GI at [facility] in 2013, genotype 1a - normal [...] patient): December 12, 2016 Nora Mohamud MD Accountant Controller, ENVIRONMENTAL ADVISOR Maternal- Medicine [email or web address] [phone] (Academic office) [phone] (Pager) Tatyana Walsh MD - 12/12/2016 12:53 AM CDT Strip Review (Not delayed due to patient care, services at 2200 on 12/11/2016) FHT: Baseline 140-150s bpm, moderate variability, prolonged accels, absent decels - appropriate for GA. Westervelt: no contractions No intervention required at this time. Tatyana Walsh MD MPH ENVIRONMENTAL ADVISOR, PGY3 Pager: [phone] 12/12/2016 12:53 AM Nora Kovasc, PT - 12/11/2016 2:58 PM CDT 12/11/16 [...] in agreement with plan of care Yes [facility] AM-PAC TM 6 Clicks ?? 2016, Trustees of [facility], under license to [employer]. All rights reserved. 6 Clicks Short Forms Basic Mobility Inpatient Short Form [facility] AM-PAC??? 6 Clicks V.2 Basic Mobility [...] small decels. Overall appropriate for gestational age. Westervelt: no contractions, quiet ? US (12/08): posterior/left [...] - Needs follow up with GI or [facility] for treatment options . ? 5. History [...] 6. Hepatitis C - s/p GI at [facility] in 2013, genotype 1a - normal [...] patient): December 11, 2016 Nora Mohamud MD Accountant Controller, ENVIRONMENTAL ADVISOR Maternal- Medicine [email or web address] [phone] (Academic office) [phone] (Pager) Tatyana Walsh MD - 12/10/2016 11:23 PM CDT Strip Review FHT: Baseline 150s bpm, moderate variability, present accels, absent decels - appropriate for GA. Westervelt: no contractions No intervention needed at this time. Tatyana Walsh MD MPH ENVIRONMENTAL ADVISOR, PGY3 Pager: [phone] 12/10/2016 11:24 PM Jess Bernstein, DRAWER MAKER - 12/10/2016 11:49 AM CDT [facility] MATERNAL CHILD HEALTH SOCIAL WORK PROGRESS NOTE DATA: Met with Deann to assess needs and to offer support. Patient is 36 year-old, Deann King. She and her , Rafal have been for two years. They live in subsidized housing in [place], [place]. Deann and Rafal know they are [...] and was in the NICU at [facility]. in November 2014 at 5 1/2 months [...] work. Rafal works at a factory in [place].Rafal does not have his party bus driver's license. Deann did not offer details [...] Assistance, talamantes and food assistance benefits through [facility]. Baby Lopez will be added to these programs upon . Deann would like to switch her MA to [employer] and is asking for SW assistance with this. Encouraged Deann to contact [facility] Economic Assistance and ask to speak to a financial worker to see what is needed to make this change. Deann is not currently enrolled in [facility] but is interested in application for these benefits. JACKIE contacted [facility] today and message left for the Funding Coordinator to see if it is possible to enroll Deann and her 4 year-old son in [facility] while Deann is hospitalized. Deann has only limited baby supplies-- some clothing and a swing. can provide assistance with a Pack N Play and diapers from [facility]. Deann has history of chemical abuse. She [...] experience that having an ongoing social media director can be helpful to her and to her children. She has been working with a SW at [facility] (Francisco [phone]) . Deann identifiesthis SW at very supportive. [...] results from her echo today from the solid tire finisher. She informed us everything looked normal. She [...] small decels. Overall appropriate for gestational age. Westervelt: 1 contraction in 1 hour, not felt [...] - Needs follow up with GI or [facility] for treatment options . ? 5. History [...] 6. Hepatitis C - s/p GI at [facility] in 2013, genotype 1a - normal [...] patient): December 10, 2016 Nora Mohamud MD Accountant Controller, ENVIRONMENTAL ADVISOR Maternal- Medicine [email or web address] [phone] (Academic office) [phone] (Pager) ?? Tatyana Walsh MD - 12/09/2016 10:46 PM CDT Strip Review FHT: Baseline 150s bpm, moderate variability, present accels, absent decels - appropriate for GA. Westervelt: 1 contractions/30 mins No intervention needed at this time. Hypothyroidism - TSH returned at normal range - no change to current synthroid needed. Depression - pending psych consult at this time. Continue home effexor. Tatyana Walsh MD MPH ENVIRONMENTAL ADVISOR, PGY3 Pager: [phone] 12/09/2016 10:46 PM Nora Mohamud MD - [...] 130s, moderate variability, + accels, no decels Westervelt: quiet, 0 ctx in 10 minutes US [...] will follow-up on administration. Marleny Kang MD ENVIRONMENTAL ADVISOR PGY-3 Maternal- Medicine Attending Addendum Late entry, [...] 6. Hepatitis C - s/p GI at [facility] in 2013, genotype 1a - normal [...] patient): December 09, 2016 Nora Mohamud MD Accountant Controller, ENVIRONMENTAL ADVISOR Maternal- Medicine [email or web address] [phone] (Academic office) [phone] (Pager) Tatyana Walsh MD - 12/08/2016 7:58 PM CDT Strip Review FHT: Baseline 150s bpm, moderate variability, present accels, absent decels - appropriate for GA. Westervelt: no contractions, uterine irritability Tatyana Walsh MD MPH ENVIRONMENTAL ADVISOR, PGY3 Pager: [phone] 12/08/2016 8:00 PM Italia Galarza DO - [...] 140s, moderate variability, + accels, no decels Westervelt: 0 ctx in 10 minutes US (12/08): [...] and Tdap ordered today. Marleny Kang MD ENVIRONMENTAL ADVISOR PGY-3 Attending Attestation: I agree with the residents note above. I spent 15 minutes total nuij-nr-cchy with this inpatient, and >50% of the [...] toxicity at this time. Rossana Barker MD Supervisory Clerk, PGY-3 12/08/2016, 2:23 AM documented in this encounter H&P Notes Nora Leyva MD - 12/07/2016 3:06 PM CDT [facility] OB History and Physical Deann King [...] Negative Negative for C. trachomatis rRNA by flow manager mediated amplification. A negative result by flow manager mediated amplification does not preclude the presence of C. trachomatis infection because results are dependent on proper and adequate collection, absence of inhibitors, and sufficient rRNA to be detected. [facility] 08/29/2016 Negative Negative for N. gonorrhoeae rRNA by flow manager mediated amplification. A negative result by flow manager mediated amplification does not preclude the presence [...] BREAST SURGERY ABcess drained ??? SECTION ??? ASSISTANT MAINTENANCE MANAGER SURGERY ??? ORTHOPEDIC SURGERY ??? THORACIC [...] 150, moderate variability, no accelerations, no decelerations Westervelt: 0 contractions in 10 minutes Assessment Ms. [...] Sofía Cao APRN, CNP, 12/20/2016 4:09 PM [facility] Intensive Care Unit [place] Amanda, Elba - [...] a consultation by Nora Mohamud MD at [facility] Antepartum. Patient is currentlyunemployed. She had been working for her mother's [employer] service, but had to stop due to [...] through lifestyle changes. She and her attend orthodoxy-based meetings twice a week and no longer [...] provider, she may schedule outpatient follow-up with [facility] (call [phone] and inform radiology rn that you are or have recently had a baby) or contact insurance company for additional referrals.? Please contact [facility] if patient is in need of [...] time to herself. She asked if this magnetic tape typewriter operator could return tomorrow or later this afternoon, but this magnetic tape typewriter operator told her that she is booked and won't be able to accommodate except for this morning. Addiction Counselor mentioned at the end that if she [...] time to herself. She asked if this magnetic tape typewriter operator could return tomorrow or later this afternoon, but this magnetic tape typewriter operator told her that she is booked and won't be able to accommodate except for this morning. Addiction Counselor mentioned at the end that if she [...] this service's next availability). Madonna Carrasquillo APRN LATHER APPRENTICE - 12/07/2016 5:00 PM CDTAssociated Order(s): NURSE [...] intraventricular hemorrhage, nutrition, growth and development, and equipment operator intermodal yard outcomes. Please feel free to call with any additional questions or concerns. Madonna Carrasquillo APRN, [facility] 12/07/2016 6:51 PM Nurse Practitioner Service Intensive Care [facility] Floor Time (min): 5 Face to Face [...] leveled and Zeroed, after labs were drawn, [place] was removed with approval of Dr Torres. Site held for 5 minutes and dressing placed to Left wrist, no bleeding or oozing noted at that time. Pt VSS, capnography started, pt's family updated via phone, will report to floor RN. WRITER Lisa Rubio RN - 12/25/2016 1:42 AM CST PACU to Inpatient Nursing Handoff Patient Deann King is a 36 year old female who speaks Montserratian. Procedure Procedure(s): Section Immediate Hysterectomy, Bilateral Salpingectomy [...] mg (total dose) last given at 0131 DRYWALL CARRIER / epidural Yes. DRYWALL CARRIER - hydromorphone (Dilaudid) Capnography Telemetry ECG Rhythm: [...] numbness;no tingling (12/24/16 09) Equipment capnography and DRYWALL CARRIER Other LDA IV Access Peripheral IV 12/22/16 [...] 12/25/2016 12:05 AM Rationale for Continued Use Anesthesia;/GI/ASSISTANT MAINTENANCE MANAGER Pelvic Procedure 12/25/2016 12:05 AM Urine Output [...] the antepartum RN. Lisa Rubio RN ASCOM [id number] WRITER documented in this encounter Miscellaneous Notes Plan of Care - Nakia Figueroa RESIDENTIAL SUPPORT WORKER - 12/27/2016 3:26 PM CST Problem: PT [...] questions and will d/c from inpatient PT. WRITER Associated attestation - Roxy Sr, PT - 12/27/2016 6:21 PM TAG WRITER Physical Therapy Discharge Summary Reason for therapy discharge: Discharged to home with outpatient therapy. Progress towards therapy goal(s). See goals on Care Plan in [facility] electronic health record for goal details. [...] leaving. F/U in clinic understood by patient. WRITER Plan of Care - Erika Villalpando RN - 12/27/2016 7:50 AM CST Referral made to [facility] for early dc. WRITER Plan of Care - Lucia Cotton RN [...] out which was taken to the nicu. WRITER Plan of Care - Hyacinth Wolf RN [...] more. Will continue with plan of Care. WRITER Note - Nikky Smith RNC - 12/26/2016 [...] to provide support. Nikky Smith RNC, IBCLC WRITER Plan of Care - Lucia Cotton, RN [...] of without calling us to stand by. WRITER Plan of Care - Yessenia Julian RN [...] at bedside. Continue with plan of care. WRITER Provider Notification - Kristie Merida RN - 12/25/2016 9:01 PM CST Sepsis alert came up for pt. BP 91/63. HR of 115. SpO2 of 98. WRITER Plan of Care - Maria Antonia Hidalgo [...] and oral oxycodone given with initial relief. WRITER Provider Notification - Kristie Merida RN - 12/25/2016 7:48 PM CST Do you want pt to continue with IV Toradol and Dilaudid? FYI-pt is going outside to smoke. WRITER Plan of Care - Maria Antonia Hidalgo [...] Patient medicated during the shift with dilaudid DRYWALL CARRIER for pain, which was discontinued at 13:50. [...] any other needs. Anticipate discharge on Friday. WRITER Plan of Care - Maria Antonia Hidalgo [...] one hour. Fixed and working well now WRITER Plan of Care - Khloe Elmore RN - 12/25/2016 5:50 AM CST Problem: ( Delivery) (Adult,Obstetrics,Pediatric) Goal: Signs and Symptoms of Listed Potential Problems Will be Absent, Minimized or Managed () Signs and symptoms of listed potential problems will be absent, minimized or managed by discharge/transition of care (reference ( Delivery) (Adult,Obstetrics,Pediatric) CPG). Outcome: No Change Pt's pain intolerable with DRYWALL CARRIER @ 0.2mg dilaudid every 10 minutes, dose increased to 0.3mg every 10 minutes with max dose delivery 1.2mg/hr. Pt's pain remains intolerable, but getting better, she falls asleep between DRYWALL CARRIER doses. WRITER Op Note - So Nunez MD - 12/24/2016 11:53 PM CST [facility] Full Operative Progress Note Surgery Date: 12/24/2016 Surgeon: So Nunez MD Assistants: Marilu Lam MD Magnetic Tape Typewriter Operator/Onc staff Petrona Barone MD MFM staff Donita Barrow MD MFM fellow Margarita Talbert MD Magnetic Tape Typewriter Operator/Onc fellow Marleny Kang MD PGY-3 Tatyana Govea MD PGY-3 Kayla Davidson MD PGY-2 Exceptional Circumstances Require an Custom Applicator Surgeon -Exceptional medical circumstances in this case required the participation of licensed occupational therapy assistant surgeons Drs. Barone and Idania in [...] entirety of the procedure. Marleny Kang MD Supervisory Clerk, PGY-3 12/24/2016, 11:54 PM I was present and scrubbed throughout the procedure, I agree with the note above So Nunez MD WRITER Brief Op Note - Marleny Kang MD - 12/24/2016 11:23 PM CST [facility] Hysterectomy Brief Operative Note Surgery Date: 12/24/2016 Surgeon: So Nunez MD; Marilu Lam MD (intraoperative consult) Assistants: Petrona Barone MD MFM staff Donita Barrow MD MFM fellow Margarita Talbert MD Magnetic Tape Typewriter Operator/Onc fellow Marleny Kang MD PGY-3 Tatyana [...] Disposition: Stable to PACU Marleny Kang MD ENVIRONMENTAL ADVISOR PGY-3 WRITER Op Note - Marilu Lam MD - 12/24/2016 10:18 PM CST DATE OF SERVICE: 12/07/2016 Remainder of this note will be dictated by Dr. Nunez's service and for my portion is as follows: ATTENDING: Marilu Lam MD WEATHERIZATION DIRECTOR: Dr. Talbert, PGY 7 ANESTHESIA: GET COMPLICATIONS: [...] MD MT: LENARD Name: DEANN KING Account: [id number] : 1980 Procedure Date: 12/07/2016 Document: [id number] WRITER Plan of Care - Juanis Henson, RN [...] Kang and questions answered. SCD's were placed. [facility] saw patient prior to transfer to the OR. There was no new bleeding after the spec exam and prior to transfer to cart. While transferto OR patient felt blood coming out and only a small amount was seen on perineum. Dr. Barone was updated on patient status while transfer to OR. WRITER Plan of Care - Juanis Henson RN - 12/24/2016 6:04 PM CST Problem: Patient Care Overview Goal: Plan of Care/Patient Progress Review Outcome: No Change Continues to have cramping. Intensity remains the same. Continue to monitor. WRITER Plan of Care - Nakia Figueora PTA - 12/24/2016 4:18 PM CST Problem: PT General Care Plan Goal: PT target date for goal attainment PT: patient displayed improvement with pain and prior to treatment rated neck pain 4/10 and after manual therapy decreased to 0/10. Debrander PT Patient plan for discharge: home Current status: patient independent with all mobilities and HEP Barriers to return to prior living situation: none Recommendations for discharge: home would benefit from OP PT for management of neck and back Rationale for recommendations: decrease back and neck pain and improve posture. Entered by: Nakia Figueroa 12/24/2016 4:17 PM WRITER Plan of Care - Petrona Sharif RN [...] 140s, with moderate variability and without decelerations. WRITER Plan of Care - Annie Allen RN [...] labor, signs/symptoms of infection, or /maternal compromise. WRITER Plan of Care - Annie Allen RN [...] reassured after exam. Continue plan of care. WRITER Provider Notification - Annie Allen RN - 12/24/2016 12:02 AM CST 12/24/16 0002 Provider Notification Provider Name/Title Dr. Kang Method of Notification Electronic Page Request Evaluate - Remote Notification Reason Other (Comment) Pt requesting UA/UC for increased urine frequency. Thanks WRITER Provider Notification - Juanis Henson RN - [...] see patient when she returns to floor. WRITER Plan of Care - Juanis Henson RN [...] symptoms. RN will talk with Dr. Kang. WRITER Plan of Care - Juanis Henson RN [...] ate, in case she progresses into labor. WRITER Provider Notification - Leslie Mendoza RN - 12/23/2016 3:35 PM CST 12/23/16 0755 Provider Notification Provider Name/Title Dr. Walsh, Dr. Barone, Med student Method of Notification At Bedside Request Evaluate in Person Notification Reason Status Update WRITER Plan of Care - Leslie Mendoza RN [...] labor, signs/symptoms of infection, or /maternal compromise. WRITER Provider Notification - Leslie Mendoza RN - 12/23/2016 12:31 PM CST 12/23/16 0945 OB Patient Position Activity/Level of Assist Ambulating Patient went outside WRITER Provider Notification - Leslie Mendoza RN - 12/23/2016 12:31 PM CST 12/23/16 0720 OB Patient Position Maternal Position Standing Activity/Level of Assist Ambulating Patient went outside (to smoke) WRITER Provider Notification - Leslie Mendoza RN - 12/23/2016 7:58 AM CST Providers here for morning rounds and EFM strip review. Patient concerned about her oral pain on hertongue. There is a sore/ulceration there. Providers reminding patient to NOT self examine digitally her cervix. WRITER Plan of Care - Bonita Love RN [...] Will continue with current plan of care. WRITER Provider Notification - Bonita Love RN - 12/22/2016 8:02 PM TAG WRITER 12/22/162000 Provider Notification Provider Name/Title Dr. Kang Method of Notification In Department Notification Reason Other (Comment) Patient reporting increased leaking of fluid today. Yellow colored on pads, no odor. Patient is not having any abdominal tenderness. Afebrile. Pt declines monitoring at this time. Dr. Kang updated. WRITER Plan of Care - Yareli Marsh RN [...] today. Will continue with plan of care. WRITER Plan of Care - Wendy Richter RN [...] VSS; EFM as charted. Continue expectant management. WRITER Plan of Care - Wendy Richter RN - 12/22/2016 3:13 AM CST Due to daylight savings time, labor calculations, ruptured membrane calculations and/or cervical exams times may be off by up to one hour from the actual time. A summary of the times/calcuations follows: None for this patient. WRITER Plan of Care - So Cheng RN [...] son. They have been working on some Currently blanketsand watching movies. Pt continues to go [...] the bathroom for longer period of time. Debrander PT Patient plan for discharge: home Current [...] to monitor and update providerwith any changes. [place] quiet and EFM mod variability, occasional accels, [...] No visitors last diana but worked on [employer] and did other crafts/games. No complaints today. [...] axillary as well as left upper abd. [place], raised areas, itches but also [place] per [...] postural exercises and relief with suboccipital release. Debrander PT Patient plan for discharge: home Current [...] functional goals as expected D: Patient called magnetic tape typewriter operator into room at 1230 stating pain in her side after laughing at the Agent Partneron [employer] tv. Placed on EFM, no contractions noted accelerations and baby appropriate for gestational age.Patient called magnetic tape typewriter operator back into room at 1305 stating that [...] of Care/Patient Progress Review Outcome: No Change Addiction Counselor went to assess vital signs. Pt. Stated that she had some reddish pink mucus in the toilet andsome pink fluid on the toilet tissue. Small quarter sized reddish pink mucus noted in the bottom of the toilet. Urine was yellow colored, no blood noted. Addiction Counselor placed and uterine monitors on thepatient. Patient [...] scant bloody mucus in toilet when voided. [place] on toilet tissue. Dr. Cyr notified of [...] declines at this time. With social media director at this time. Pt declines a nicotine [...] within reach. Pt states understanding to put tactical air control party manager light if any change in condition. Plan [...] Overview Goal: Plan of Care/Patient Progress Review Debrander PT Patient plan for discharge: Home Current [...] to her s/o. [facility]. Pt is comfortable. [...] within reach. Pt states understanding to put tactical air control party manager light if any changes in condition. Plan [...] orintensity. Abdomen palpates soft, and toco didn't machine operator hop picker any contractions. FHT: mod variability with [...] Visit Wound Care Luis Camara DPM [address] [place], [place] [id number] (Wo rk) 01/21/2022 Office Visit Gastroenterology Juanis Levi [address] [place] [address] Luis Fernando Miles MD [address] [id number] Pending Results Name Type Priority Associated Date/Time Diagnoses Transfuse red blood Nursing Transfusion STAT 1 02/24/2016 8:10 cell unit PM TAG WRITER Transfuse red blood Nursing Transfusion STAT 1 02/24/2016 8:15 cell unit PM TAG WRITER Transfuse plasma unit Nursing Transfusion Routine 12/24/2016 8:48 PM TAG WRITER Transfuse red blood Nursing Transfusion STAT 1 02/24/2016 8:42 cell unit PM TAG WRITER Transfuse red blood Nursing Transfusion STAT 1 02/24/2016 9:30 cell unit PM TAG WRITER Transfuse red blood Nursing Transfusion STAT 02/24/2016 8:59 cell unit PM TAG WRITER Transfuse red blood Nursing Transfusion STAT 1 02/24/2016 8:58 cell unit PM TAG WRITER Transfuse red blood Nursing Transfusion STAT 02/24/2016 8:47 cell unit PM TAG WRITER Placenta path order and Lab Routine 08/2016 8:05 indications PM TAG WRITER Transfuse platelets Nursing Transfusion Routine 1 02/24/2016 9:19 unit PM TAG WRITER Transfuse red blood Nursing Transfusion STAT 02/24/2016 10:15 cell unit PM TAG WRITER Transfuse red blood Nursing Transfusion STAT 02/24/2016 10:50 cell unit PM TAG WRITER Transfuse red blood Nursing Transfusion STAT 1 02/24/2016 9:56 cell unit PM TAG WRITER Cryoprecipitate prepare Blood Bank Routine Chronic hepatitis 12/24/2016 10:59 order unit C without hepatic PM TAG WRITER coma (H) Transfuse Nursing Transfusion Routine 12/25/19 17 11:10 cryoprecipitate unit PM TAG WRITER Scheduled Referrals Name Type Priority Associated Diagnoses Order S chedule GASTROENTEROLOGY ADULT REF Referral Routine Chronic hepati tis C Ordered: 12/26/2016 CONSULT ONLY without hepatic coma (H) DENTAL REFERRAL Referral Routine Dental caries Ordered: documented as of this encounter Procedures Procedure Name Priority Date/Time Associated Comments Diagnosis CBC WITH PLATELETS Routine 12/26/2016 8:10 Chronic hepatitis R esults for this AM TAG WRITER C without hepatic procedure are in coma (H) the results section. CBC WITH PLATELETS Timed 12/25/2016 2:04 Chronic hepatitis R esults for this PM TAG WRITER C without hepatic procedure are in coma (H) the results section. INR Timed 12/25/2016 7:00 Chronic hepatitis Results for this AM TAG WRITER C without hepatic procedure are in coma (H) the results section. PARTIAL THROMBOPLASTIN Timed 12/25/2016 7:00 Chronic hepatit is Results for this TIME AM TAG WRITER C without hepatic procedure are in coma (H) the results section. MAGNESIUM Timed 12/25/2016 7:00 Chronic hepatitis Results for this AM TAG WRITER C without hepatic procedure are in coma (H) the results section. FIBRINOGEN ACTIVITY Timed 12/25/2016 7:00 Chronic hepatitis Results for this AM TAG WRITER C without hepatic procedure are in coma (H) the results section. BASIC METABOLIC PANEL Timed 12/25/2016 7:00 Chronic hepatiti s Results for this AM TAG WRITER C without hepatic procedure are in coma (H) the results section. CBC WITH PLATELETS Timed 12/25/2016 7:00 Chronic hepatitis R esults for this AM TAG WRITER C without hepatic procedure are in coma (H) the results section. INR Routine 12/25/2016 12:54 Chronic hepatitis Result s for this AM TAG WRITER C without hepatic procedure are in coma (H) the results section. PARTIAL THROMBOPLASTIN Routine 12/25/2016 12:54 Chronic hepati tis Results for this TIME AM TAG WRITER C without hepatic procedure are in coma (H) the results section. FIBRINOGEN ACTIVITY Routine 12/25/2016 12:54 Chronic hepatitis Results for this AM TAG WRITER C without hepatic procedure are in coma (H) the results section. BASIC METABOLIC PANEL Routine 12/25/2016 12:54 Chronic hepatit is Results for this AM TAG WRITER C without hepatic procedure are in coma (H) the results section. CBC WITH PLATELETS Routine 12/25/2016 12:54 Chronic hepatitis Results for this AM TAG WRITER C without hepatic procedure are in coma (H) the results section. XR ABDOMEN PORT 1 VIEW STAT 12/24/2016 11:10 R esults for this PM TAG WRITER procedure are i n the results section. TRANSFUSE Routine 12/24/2016 11:10 CRYOPRECIPITATE UNIT PM TAG WRITER BLOOD COMPONENT Routine 12/24/2016 10:59 Chronic hepatitis Res ults for this PM TAG WRITER C without hepatic procedure are in coma (H) the results section. PREPARE CRYOPRECIPITATE Routine 12/24/2016 10:59 Chronic hepat itis (SINGLE UNIT) PM TAG WRITER C without hepatic coma (H) TRANSFUSE RED BLOOD CELL STAT 12/24/2016 10:50 UNIT PM TAG WRITER ARTERIAL PANEL Routine 12/24/2016 10:45 Chronic hepatitis Resu lts for this PM TAG WRITER C without hepatic procedure are in coma (H) the results section. TRANSFUSE RED BLOOD CELL STAT 12/24/2016 10:15 UNIT PM TAG WRITER SURGICAL PATHOLOGY EXAM Routine 12/24/2016 10:13 Results for this PM TAG WRITER procedure are i n the results section. TRANSFUSE RED BLOOD CELL STAT 12/24/2016 9:56 UNIT PM TAG WRITER ARTERIAL PANEL Routine 12/24/2016 9:50 Chronic hepatitis Resul ts for this PM TAG WRITER C without hepatic procedure are in coma (H) the results section. INR Routine 12/24/2016 9:50 Chronic hepatitis Results for this PM TAG WRITER C without hepatic procedure are in coma (H) the results section. PARTIAL THROMBOPLASTIN Routine 12/24/2016 9:50 Chronic hepatit is Results for this TIME PM TAG WRITER C without hepatic procedure are in coma (H) the results section. FIBRINOGEN ACTIVITY Routine 12/24/2016 9:50 Chronic hepatitis Results for this PM TAG WRITER C without hepatic procedure are in coma (H) the results section. CBC WITH PLATELETS Routine 12/24/2016 9:50 Chronic hepatitis R esults for this PM TAG WRITER C without hepatic procedure are in coma (H) the results section. TRANSFUSE RED BLOOD CELL STAT 12/24/2016 9:30 UNIT PM TAG WRITER ARTERIAL PANEL Routine 12/24/2016 9:20 Chronic hepatitis Resul ts for this PM TAG WRITER C without hepatic procedure are in coma (H) the results section. TRANSFUSE PLATELETS UNIT Routine 12/24/2016 9:19 PM TAG WRITER TRANSFUSE RED BLOOD CELL STAT 12/24/2016 8:59 UNIT PM TAG WRITER TRANSFUSE RED BLOOD CELL STAT 12/24/2016 8:58 UNIT PM TAG WRITER TRANSFUSE PLASMA UNIT Routine 12/24/2016 8:48 PM TAG WRITER TRANSFUSE RED BLOOD CELL STAT 12/24/2016 8:47 UNIT PM TAG WRITER BLOOD COMPONENT Routine 12/24/2016 8:45 Chronic hepatitis Resu lts for this PM TAG WRITER C without hepatic procedure are in coma (H) the results section. BLOOD COMPONENT Routine 12/24/2016 8:45 Chronic hepatitis Resu lts for this PM TAG WRITER C without hepatic procedure are in coma (H) the results section. PREPARE PLATELETS ORDER Routine 12/24/2016 8:45 Chronic hepati tis Results for this UNIT PM TAG WRITER C without hepatic procedure are in coma (H) the results section. ARTERIAL PANEL Routine 12/24/2016 8:44 Chronic hepatitis Resul ts for this PM TAG WRITER C without hepatic procedure are in coma (H) the results section. INR Routine 12/24/2016 8:44 Chronic hepatitis Results for this PM TAG WRITER C without hepatic procedure are in coma (H) the results section. PARTIAL THROMBOPLASTIN Routine 12/24/2016 8:44 Chronic hepatit is Results for this TIME PM TAG WRITER C without hepatic procedure are in coma (H) the results section. FIBRINOGEN ACTIVITY Routine 12/24/2016 8:44 Chronic hepatitis Results for this PM TAG WRITER C without hepatic procedure are in coma (H) the results section. CBC WITH PLATELETS Routine 12/24/2016 8:44 Chronic hepatitis R esults for this PM TAG WRITER C without hepatic procedure are in coma (H) the results section. TRANSFUSE RED BLOOD CELL STAT 12/24/2016 8:42 UNIT PM TAG WRITER ARTERIAL PANEL Routine 12/24/2016 8:25 Chronic hepatitis Resul ts for this PM TAG WRITER C without hepatic procedure are in coma (H) the results section. PLACENTA PATH ORDER AND Routine 12/24/2016 8:05 INDICATIONS PM TAG WRITER BLOOD COMPONENT Routine 12/24/2016 7:25 Chronic hepatitis Resu lts for this PM TAG WRITER C without hepatic procedure are in coma (H) the results section. BLOOD COMPONENT Routine 12/24/2016 7:25 Chronic hepatitis Resu lts for this PM TAG WRITER C without hepatic procedure are in coma (H) the results section. BLOOD COMPONENT Routine 12/24/2016 7:25 Chronic hepatitis Resu lts for this PM TAG WRITER C without hepatic procedure are in coma (H) the results section. BLOOD COMPONENT Routine 12/24/2016 7:25 Chronic hepatitis Resu lts for this PM TAG WRITER C without hepatic procedure are in coma (H) the results section. BLOOD COMPONENT Routine 12/24/2016 7:25 Chronic hepatitis Resu lts for this PM TAG WRITER C without hepatic procedure are in coma (H) the results section. BLOOD COMPONENT Routine 12/24/2016 7:25 Chronic hepatitis Resu lts for this PM TAG WRITER C without hepatic procedure are in coma (H) the results section. BLOOD COMPONENT Routine 12/24/2016 7:25 Chronic hepatitis Resu lts for this PM TAG WRITER C without hepatic procedure are in coma (H) the results section. BLOOD COMPONENT Routine 12/24/2016 7:25 Chronic hepatitis Resu lts for this PM TAG WRITER C without hepatic procedure are in coma (H) the results section. PREPARE PLASMA (UNIT) Routine 12/24/2016 7:25 Chronic hepatiti s Results for this PM TAG WRITER C without hepatic procedure are in coma (H) the results section. HYSTERECTOMY, FOLLOWING 12/24/2016 7:24 SECTION PM TAG WRITER CBC WITH PLATELETS & STAT 12/24/2016 7:06 Chronic hepatitis Results for this DIFFERENTIAL PM TAG WRITER C without hepatic procedure are in coma (H) the results section. ROUTINE UA WITH Routine 12/24/2016 7:50 Chronic hepatitis Resu lts for this MICROSCOPIC REFLEX TO AM TAG WRITER C without hepatic p rocedure are in CULTURE coma (H) the results section. URINE CULTURE Routine 12/24/2016 7:50 Chronic hepatitis Result s for this AM TAG WRITER C without hepatic procedure are in coma (H) the results section. WET PREPARATION Routine 12/23/2016 11:53 Chronic hepatitis Res ults for this PM TAG WRITER C without hepatic procedure are in coma (H) the results section. MFM BPP SINGLE Routine 12/23/2016 8:37 Results fo r this AM TAG WRITER procedure are i n the results section. BLOOD COMPONENT Routine 12/23/2016 6:54 Chronic hepatitis Resu lts for this AM TAG WRITER C without hepatic procedure are in coma (H) the results section. BLOOD COMPONENT Routine 12/23/2016 6:54 Chronic hepatitis Resu lts for this AM TAG WRITER C without hepatic procedure are in coma (H) the results section. BLOOD COMPONENT Routine 12/23/2016 6:54 Chronic hepatitis Resu lts for this AM TAG WRITER C without hepatic procedure are in coma (H) the results section. BLOOD COMPONENT Routine 12/23/2016 6:54 Chronic hepatitis Resu lts for this AM TAG WRITER C without hepatic procedure are in coma (H) the results section. BLOOD COMPONENT Routine 12/23/2016 6:54 Chronic hepatitis Resu lts for this AM TAG WRITER C without hepatic procedure are in coma (H) the results section. BLOOD COMPONENT Routine 12/23/2016 6:54 Chronic hepatitis Resu lts for this AM TAG WRITER C without hepatic procedure are in coma (H) the results section. BLOOD COMPONENT Routine 12/23/2016 6:54 Chronic hepatitis Resu lts for this AM TAG WRITER C without hepatic procedure are in coma (H) the results section. BLOOD COMPONENT Routine 12/23/2016 6:54 Chronic hepatitis Resu lts for this AM TAG WRITER C without hepatic procedure are in coma (H) the results section. BLOOD COMPONENT Routine 12/23/2016 6:54 Chronic hepatitis Resu lts for this AM TAG WRITER C without hepatic procedure are in coma (H) the results section. BLOOD COMPONENT Routine 12/23/2016 6:54 Chronic hepatitis Resu lts for this AM TAG WRITER C without hepatic procedure are in coma (H) the results section. BLOOD COMPONENT Routine 12/23/2016 6:54 Chronic hepatitis Resu lts for this AM TAG WRITER C without hepatic procedure are in coma (H) the results section. BLOOD COMPONENT Routine 12/23/2016 6:54 Chronic hepatitis Resu lts for this AM TAG WRITER C without hepatic procedure are in coma (H) the results section. ABO/RH TYPE AND SCREEN Routine 12/23/2016 6:54 Chronic hepatit is Results for this AM TAG WRITER C without hepatic procedure are in coma (H) the results section. ABO/RH TYPE AND SCREEN Timed 12/20/2016 10:48 Chronic hepati tis Results for this AM CDT C without hepatic procedure are in coma (H) the results section. [facility] BPP SINGLE Routine 12/19/2016 8:46 Results fo r this AM CDT procedure are i n the results section. ABO/RH TYPE AND SCREEN Timed 12/17/2016 6:54 Chronic hepatit is Results for this AM CDT C without hepatic procedure are in coma (H) the results section. [facility] US OB LIMITED Routine 12/16/2016 9:24 [...] procedure are i n the results section. [facility] US OB LIMITED Routine 12/12/2016 8:36 [...] (ABNORMAL) CBC with platelets (12/26/2016 8:10 AM TAG WRITER) [facility] Method Time Signature WBC 8.5 4.0 - 11.0 12/26/2016 [facility] 10e9/L 8:20 AM [facility] RBC Count 3.19 (L) 3.8 - 5.2 12/26/2016 [facility] 10e12/L 8:20 AM [facility] Hemoglobin 9.2 (L) 11.7 - 12/26/2016 [facility] 15.7 g/dL 8:20 AM [facility] Hematocrit 27.2 (L) 35.0 - 12/26/2016 [facility] 47.0 % 8:20 AM [facility] MCV 85 78 - 100 12/26/2016 [facility] fl 8:20 AM [facility] MCH 28.8 26.5 - 12/26/2016 [facility] 33.0 pg 8:20 AM [facility] MCHC 33.8 31.5 - 12/26/2016 [facility] 36.5 g/dL 8:20 AM [facility] RDW 14.7 10.0 - 12/26/2016 [facility] 15.0 % 8:20 AM [facility] Platelet Count 144 (L) 150 - 450 12/26/2016 [facility] 10e9/L 8:20 AM [facility] Specimen Anatomical Collection Method Collection Time Receive d Time (Source) Location / / Volume Laterality Blood specimen 12/26/2016 8:10 AM 017 8:12 (specimen) TAG WRITER AM TAG WRITER Kayla Davidson MD LAB - BLOOD ORDERABLES Performing Organization Address City/State/ZIP Code Phon e Number [place] [id number] [place] [address] [facility] (ABNORMAL) CBC with platelets (12/25/2016 2:04 PM TAG WRITER) Patholo gist Method Time Signature WBC 9.7 4.0 - 11.0 12/25/2016 [facility] 10e9/L 2:10 PM [facility] RBC Count 3.45 (L) 3.8 - 5.2 12/25/2016 [facility] 10e12/L 2:10 PM [facility] Hemoglobin 10.1 (L) 11.7 - 12/25/2016 [facility] 15.7 g/dL 2:10 PM [facility] Hematocrit 28.8 (L) 35.0 - 12/25/2016 [facility] 47.0 % 2:10 PM [facility] MCV 84 78 - 100 12/25/2016 [facility] fl 2:10 PM [facility] MCH 29.3 26.5 - 12/25/2016 [facility] 33.0 pg 2:10 PM [facility] MCHC 35.1 31.5 - 12/25/2016 [facility] 36.5 g/dL 2:10 PM [facility] RDW 14.4 10.0 - 12/25/2016 [facility] 15.0 % 2:10 PM [facility] Platelet Count 142 (L) 150 - 450 12/25/2016 [facility] 10e9/L 2:10 PM [facility] Specimen Anatomical Collection Method Collection Time Receive d Time (Source) Location / / Volume Laterality Blood specimen 12/25/2016 2:04 PM 017 2:08 (specimen) TAG WRITER PM TAG WRITER So Nunez MD LAB - BLOOD ORDERABLES Performing Organization Address City/State/ZIP Code Phon e Number [place] [id number] [place] [address] [facility] (ABNORMAL) Magnesium (12/25/2016 7:00 AM TAG WRITER) P athologist Signature Magnesium 1.5 (L) 1.6 - 2.3 12/25/2016 [facility] mg/dL 8:07 AM [facility] Specimen Anatomical Collection Method Collection Time Receive d Time (Source) Location / / Volume Laterality Blood specimen 12/25/2016 7:00 AM 017 7:06 (specimen) TAG WRITER AM TAG WRITER So Nunez MD LAB - BLOOD ORDERABLES Performing Organization Address City/State/ZIP Code Phon e Number [facility] [address] [place] [address] [facility] (ABNORMAL) Basic metabolic panel (12/25/2016 7:00 AM TAG WRITER) [facility] Method Time Signature Sodium 139 133 - 144 12/25/2016 [facility] mmol/L 8:13 AM [facility] Potassium 3.8 3.4 - 5.3 12/25/2016 [facility] mmol/L 8:13 AM [facility] Chloride 108 94 - 109 12/25/2016 [facility] mmol/L 8:13 AM [facility] Carbon Dioxide 21 20 - 32 12/25/2016 [facility] mmol/L 8:13 AM [facility] Anion Gap 10 3 - 14 12/25/2016 [facility] mmol/L 8:13 AM [facility] Glucose 133 (H) 70 - 99 12/25/2016 [facility] mg/dL 8:13 AM [facility] Urea Nitrogen 5 (L) 7 - 30 12/25/2016 [facility] mg/dL 8:13 AM [facility] Creatinine 0.51 (L) 0.52 - 12/25/2016 [facility] 1.04 mg/dL 8:13 AM [facility] GFR Estimate >90 >60 12/25/2016 [facility] mL/min/1.7 8:[address] Comment: Non GFR Calc GFR Estimate If >90 >60 mL/min/1.7m2 12/25/2016 8:13 A M [facility] Black [facility] Comment: GFR Calc Calcium 7.6 (L) 8.5 - 10.1 mg/dL 12/25/2016 8:13 AM [facility] Specimen Anatomical Collection Method Collection Time Receive d Time (Source) Location / / Volume Laterality Blood specimen 12/25/2016 7:00 AM 017 7:07 (specimen) TAG WRITER AM TAG WRITER Petrona Barone DO LAB - BLOOD ORDERABLES Performing Organization Address City/State/ZIP Code Phon e Number [address] [address] [facility] Fibrinogen activity (12/25/2016 7:00 AM TAG WRITER) P athologist Signature Fibrinogen 398 200 - 420 12/25/2016 [facility] mg/dL 7:58 AM [facility] Specimen Anatomical Collection Method Collection Time Receive d Time (Source) Location / / Volume Laterality Blood specimen 12/25/2016 7:00 AM 017 7:07 (specimen) TAG WRITER AM TAG WRITER Petrona Barone DO LAB - BLOOD ORDERABLES Performing Organization Address City/[facility]/ZIP Code Phon e Number [address] [address] [facility] Partial thromboplastin time (12/25/2016 7:00 AM TAG WRITER) athologist Signature PTT 28 22 - 37 sec 12/25/2016 [facility] 7:58 AM [facility] Specimen Anatomical Collection Method Collection Time Receive d Time (Source) Location / / Volume Laterality Blood specimen 12/25/2016 7:00 AM 017 7:07 (specimen) TAG WRITER AM TAG WRITER Petrona Barone DO LAB - BLOOD ORDERABLES Performing Organization Address City/[facility]/ZIP Code Phon e Number [address] [address] [facility] INR (12/25/2016 7:00 AM TAG WRITER) P athologist Signature INR 1.06 0.86 - 1.14 12/25/2016 [facility] 7:58 AM [facility] Specimen Anatomical Collection Method Collection Time Receive d Time (Source) Location / / Volume Laterality Blood specimen 12/25/2016 7:00 AM 017 7:07 (specimen) TAG WRITER AM TAG WRITER Petrona Barone DO LAB - BLOOD ORDERABLES Performing Organization Address City/[facility]/ZIP Code Phon e Number [address] [address] [facility] (ABNORMAL) CBC with platelets (12/25/2016 7:00 AM TAG WRITER) Patholo gist Method Time Signature WBC 12.7 (H) 4.0 - 11.0 12/25/2016 [facility] 10e9/L 7:51 AM [facility] RBC Count 4.05 3.8 - 5.2 12/25/2016 [facility] 10e12/L 7:51 AM [facility] Hemoglobin 11.5 (L) 11.7 - 12/25/2016 [facility] 15.7 g/dL 7:51 AM [facility] Hematocrit 33.8 (L) 35.0 - 12/25/2016 [facility] 47.0 % 7:51 AM [facility] MCV 84 78 - 100 12/25/2016 [facility] fl 7:51 AM [facility] MCH 28.4 26.5 - 12/25/2016 [facility] 33.0 pg 7:51 AM [facility] MCHC 34.0 31.5 - 12/25/2016 [facility] 36.5 g/dL 7:51 AM [facility] RDW 14.0 10.0 - 12/25/2016 [facility] 15.0 % 7:51 AM [facility] Platelet Count 160 150 - 450 12/25/2016 [facility] 10e9/L 7:51 AM [facility] Specimen Anatomical Collection Method Collection Time Receive d Time (Source) Location / / Volume Laterality Blood specimen 12/25/2016 7:00 AM 017 7:07 (specimen) TAG WRITER AM TAG WRITER Petrona Barone DO LAB - BLOOD ORDERABLES Performing Organization Address City/[facility] Code Phon e Number [facility] [address] [place] [address] [facility] Partial thromboplastin time (12/25/2016 12:54 AM TAG WRITER) P athologist Signature PTT 28 22 - 37 sec 12/25/2016 [facility] 1:52 AM [facility] Specimen Anatomical Collection Method Collection Time Receive d Time (Source) Location / / Volume Laterality Blood specimen 12/25/2016 12:54 7 1:10 (specimen) AM TAG WRITER AM TAG WRITER Nora Torres MD LAB - BLOOD ORDERABLES Performing Organization Address City/State/ZIP Code Phon e Number [address] [address] [facility] INR (12/25/2016 12:54 AM TAG WRITER) athologist Signature INR 1.11 0.86 - 1.14 12/25/2016 [facility] 1:52 AM [facility] Specimen Anatomical Collection Method Collection Time Receive d Time (Source) Location / / Volume Laterality Blood specimen 12/25/2016 12:54 7 1:10 (specimen) AM TAG WRITER AM TAG WRITER Nora Torres MD LAB - BLOOD ORDERABLES Performing Organization Address City/State/ZIP Code Phon e Number [address] [address] [facility] Fibrinogen activity (12/25/2016 12:54 AM TAG WRITER) athologist Signature Fibrinogen 338 200 - 420 12/25/2016 [facility] mg/dL 1:52 AM [facility] Specimen Anatomical Collection Method Collection Time Receive d Time (Source) Location / / Volume Laterality Blood specimen 12/25/2016 12:54 7 1:10 (specimen) AM TAG WRITER AM TAG WRITER Nora Torres MD LAB - BLOOD ORDERABLES Performing Organization Address City/State/ZIP Code Phon e Number [address] [address] [facility] (ABNORMAL) CBC with platelets (12/25/2016 12:54 AM TAG WRITER) Analysis Performed At Patho logist Time Signature WBC 11.0 4.0 - 11.0 12/25/2016 [facility] 10e9/L 1:42 AM [facility] RBC Count 4.22 3.8 - 5.2 12/25/2016 [facility] 10e12/L 1:42 AM [facility] Hemoglobin 12.2 11.7 - 12/25/2016 [facility] 15.7 g/dL 1:42 AM [facility] Hematocrit 35.9 35.0 - 12/25/2016 [facility] 47.0 % 1:42 AM [facility] MCV 85 78 - 100 12/25/2016 [facility] 1:42 AM [facility] MCH 28.9 26.5 - 12/25/2016 [facility] 33.0 pg 1:42 AM [facility] MCHC 34.0 31.5 - 12/25/2016 [facility] 36.5 g/dL 1:42 AM [facility] RDW 13.6 10.0 - 12/25/2016 [facility] 15.0 % 1:42 AM [facility] Platelet Count 149 (L) 150 - 450 12/25/2016 [facility] 10e9/L 1:42 AM [facility] Specimen Anatomical Collection Method Collection Time Receive d Time (Source) Location / / Volume Laterality Blood specimen 12/25/2016 12:54 7 1:10 (specimen) AM TAG WRITER AM TAG WRITER Nora Torres MD LAB - BLOOD ORDERABLES Performing Organization Address City/State/ZIP Code Phon e Number [facility] [address] [place] [address] [facility] (ABNORMAL) Basic metabolic panel (12/25/2016 12:54 AM TAG WRITER) Analysis Performed At Patho logist Time Signature Sodium 142 133 - 144 12/25/2016 [facility] mmol/L 1:49 AM [facility] Potassium 4.0 3.4 - 5.3 12/25/2016 [facility] mmol/L 1:49 AM [facility] Chloride 113 (H) 94 - 109 12/25/2016 [facility] mmol/L 1:49 AM [facility] Carbon Dioxide 22 20 - 32 12/25/2016 [facility] mmol/L 1:49 AM [facility] Anion Gap 7 3 - 14 12/25/2016 [facility] mmol/L 1:49 AM [facility] Glucose 147 (H) 70 - 99 12/25/2016 [facility] mg/dL 1:49 AM [facility] Urea Nitrogen 6 (L) 7 - 30 12/25/2016 [facility] mg/dL 1:49 AM [facility] Creatinine 0.54 0.52 - 12/25/2016 [facility] 1.04 mg/dL 1:49 AM [facility] GFR Estimate >90 >60 12/25/2016 [facility] mL/min/1.7 1:[address] Comment: Non GFR Calc GFR Estimate If >90 >60 mL/min/1.7m2 12/25/2016 1:49 A M [facility] Black [facility] Comment: GFR Calc Calcium 8.0 (L) 8.5 - 10.1 mg/dL 12/25/2016 1:49 AM TAG WRITER [facility] Specimen Anatomical Collection Method Collection Time Receive d Time (Source) Location / / Volume Laterality Blood specimen 12/25/2016 12:54 7 1:10 (specimen) AM TAG WRITER AM TAG WRITER Nora Torres MD LAB - BLOOD ORDERABLES Performing Organization Address City/State/ZIP Code Phon e Number [facility] [address] [place] [address] [facility] XR Abdomen Port 1 View (12/24/2016 11:10 PM TAG WRITER) Anatomical Region Laterality Modality Abdomen/Pelvis Computed Radiography Specimen (Source) Anatomical Location Collection Method / Collectio n Time Received Time / Laterality Volume Impressions 12/24/2016 11:52 PM TAG WRITER IMPRESSION: No radiopaque foreign objects are present in the visualized portion of the abdomen and pe lvis. CHEIKH COURTNEY MD Narrative 12/24/2016 11:52 PM TAG WRITER ABDOMEN SINGLE VIEW ??12/24/2016 11:10 PM HISTORY: [...] ORDER JEFFERY Blood component (12/24/2016 10:59 PM TAG WRITER) Component Value Ref Test Analysis Performed At [facility] Range Method Time Signature Unit Number [id number] 12/24/2016 [facility] 11:06 PM [facility] Blood 5 cryoprecipitate 12/24/2016 [facility] Component units pooled 11:[address] MEDICAL [facility] 00 12/24/2016 [facility] Number 11:06 PM [facility] Status of Released to care 12/24/2016 [facility] F Unit unit 11:58 PM [facility] Blood [id number] 12/24/2016 [facility] Product Code 11:06 PM [facility] Unit Status ISS [facility] Specimen Anatomical Collection Method Collection Time Receive d Time (Source) Location / / Volume Laterality 12/24/2016 10:59 12/24/2016 PM TAG WRITER 11:04 PM TAG WRITER Nora Leyva MD LABORATORY Performing Organization Address City/State/ZIP Code Phon e Number [facility] [address] [place] [address] [facility] [address] [place] [address] [facility] (ABNORMAL) Arterial Panel (12/24/2016 10:45 PM TAG WRITER) [facility] Method Time Signature pH Arterial 7.35 7.35 - 12/24/2016 [facility] 7.45 pH 10:57 PM [facility] pCO2 Arterial 36 35 - 45 mm 12/24/2016 [facility] Hg 10:57 PM [facility] pO2 Arterial 207 (H) 80 - 105 12/24/2016 [facility] mm Hg 10:57 PM [facility] Bicarbonate 20 (L) 21 - 28 12/24/2016 [facility]ERSITY Arterial mmol/L 10:57 PM [facility] Base Deficit Art 4.9 mmol/L 12/24/2016 [facility] F 10:57 PM [facility] Comment: Reference range: -9.0 to 1.8 FIO2 50 12/24/2016 10:50 PM [facility] Sodium 135 133 - 144 12/24/2016 10:57 PM [facility] mmol/L [facility] Potassium 4.0 3.4 - 5.3 12/24/2016 10:57 PM [facility] mmol/L [facility] Hemoglobin 10.1 (L) 11.7 - 15.7 12/24/2016 10:[address] g/dL [facility] Glucose 161 (H) 70 - 99 mg/dL 12/24/2016 10:57 PM [facility] Calcium Ionized 5.1 4.4 - 5.2 12/24/2016 10:57 PM [facility] Blood mg/dL TAG [facility] Specimen Anatomical Collection Method Collection Time Receive d Time (Source) Location / / Volume Laterality 12/24/2016 10:45 12/24/2016 PM TAG WRITER 10:49 PM TAG WRITER Nora Leyva MD LAB - BLOOD ORDERABLES Performing Organization Address City/State/ZIP Code Phon e Number [facility] [address] [place] [address] [facility] Surgical pathology exam (12/24/2016 10:13 PM TAG WRITER) Component Value Ref Test Analysis Performed Pathologis t Range Method Time At Signature Copath Patient Name: DEANN KING Report MR#: [id number] Specimen #: [id number] Collected: 12/24/2016 Received: 12/25/2016 Reported: 12/31/2016 10:03 [...] fundus to cervix, 8.0 cm anterior to pool servicer ior, and 9.5 cm cornu to cornu. [...] endometrium is irregular-shaped. No masses are identified. [employer] sections are submitted. Summary of Sections: A1 [...] fallopian tube wi th a pin-point lumen. [employer] sections are submitted in ca ssette B1. C: The specimen is received in formalin with the proper jessica ent identification, labeled left fallopian tube. The specimen consists of a tubular segment of purple-[place] soft tissue with fimbriated ends consistent with a fallopian tube measuring 5.5 cm in length and ranging from 0.8-1.5 cm in diameter. The specimen is serially sectio rayn to reveal a grossly complete cross section of fallopian tube wi th a pin-point lumen. [employer] sections are submitted in ca ssette C1. [...] measuring 2.0 x 2.0 x 1.2 cm. [employer] sections are submitted as follows: Summary of [...] The section submitted as possible thrombus at [facility] shows a remote retroplacental hematoma. CPT Codes: A: 79640-XY3, 70394-ZCG, 48526-AGT B: 85215-LF3 C: 65121-HT6 D: 55096-WT3 TESTING LAB LOCATION: [address] [id number] COLLECTION SITE: Client: [facility] Specimen (Source) Anatomical Collection Method Collection Time Re ceived Time Location / / Volume Laterality Tissue specimen UTERUS AND CERVIX, 12/24/2016 10:13 (specimen) CS / Unknown PM TAG WRITER Tissue specimen STRUCTURE OF RIGHT 12/24/2016 10:14 (specimen) FALLOPIAN TUBE / PM TAG WRITER Unknown Tissue specimen STRUCTURE OF LEFT 12/24/2016 10:14 (specimen) FALLOPIAN TUBE / PM TAG WRITER Unknown [facility] Performing Organization Address City/State/ZIP Code Phon e Number [place] Partial thromboplastin time (12/24/2016 9:50 PM TAG WRITER) athologist Signature PTT 33 22 - 37 sec 12/24/2016 [facility] 10:05 PM [facility] Specimen Anatomical Collection Method Collection Time Receive d Time (Source) Location / / Volume Laterality 12/24/2016 9:50 PM 7 9:52 TAG WRITER PM TAG WRITER Nora Leyva MD LAB - BLOOD ORDERABLES Performing Organization Address City/[facility]/ZIP Code Phon e Number [address] [address] [facility] (ABNORMAL) INR (12/24/2016 9:50 PM TAG WRITER) P athologist Signature INR 1.50 (H) 0.86 - 1.14 12/24/2016 [facility] 10:05 PM [facility] Specimen Anatomical Collection Method Collection Time Receive d Time (Source) Location / / Volume Laterality 12/24/2016 9:50 PM 7 9:52 TAG WRITER PM TAG WRITER Nora Leyva MD LAB - BLOOD ORDERABLES Performing Organization Address City/[facility]/ZIP Code Phon e Number [address] [address] [facility] (ABNORMAL) Fibrinogen activity (12/24/2016 9:50 PM TAG WRITER) P athologist Signature Fibrinogen 189 (L) 200 - 420 12/24/2016 [facility] mg/dL 10:05 PM [facility] Specimen Anatomical Collection Method Collection Time Receive d Time (Source) Location / / Volume Laterality 12/24/2016 9:50 PM 7 9:52 TAG WRITER PM TAG WRITER Nora Leyva MD LAB - BLOOD ORDERABLES Performing Organization Address City/State/ZIP Code Phon e Number [address] [address] [facility] (ABNORMAL) CBC with platelets (12/24/2016 9:50 PM TAG WRITER) Patholo gist Method Time Signature WBC 10.3 4.0 - 11.0 12/24/2016 [facility] 10e9/L 9:58 PM [facility] RBC Count 2.61 (L) 3.8 - 5.2 12/24/2016 [facility] 10e12/L 9:58 PM [facility] Hemoglobin 7.5 (L) 11.7 - 12/24/2016 [facility] 15.7 g/dL 9:58 PM [facility] Hematocrit 23.1 (L) 35.0 - 12/24/2016 [facility] 47.0 % 9:58 PM [facility] MCV 89 78 - 100 12/24/2016 [facility] fl 9:58 PM [facility] MCH 28.7 26.5 - 12/24/2016 [facility] 33.0 pg 9:58 PM [facility] MCHC 32.5 31.5 - 12/24/2016 [facility] 36.5 g/dL 9:58 PM [facility] RDW 14.5 10.0 - 12/24/2016 [facility] 15.0 % 9:58 PM [facility] Platelet Count 105 (L) 150 - 450 12/24/2016 [facility] 10e9/L 9:58 PM [facility] Specimen Anatomical Collection Method Collection Time Receive d Time (Source) Location / / Volume Laterality 12/24/2016 9:50 PM 7 9:52 TAG WRITER PM TAG WRITER Nora Leyva MD LAB - BLOOD ORDERABLES Performing Organization Address City/State/ZIP Code Phon e Number [facility] [address] [place] [address] [facility] (ABNORMAL) Arterial Panel (12/24/2016 9:50 PM [facility]) [facility] gist Method Time Signature pH Arterial 7.31 (L) 7.35 - 12/24/2016 [facility] 7.45 pH 9:58 PM [facility] pCO2 Arterial 38 35 - 45 12/24/2016 [facility] mm Hg 9:58 PM [facility] pO2 Arterial 197 (H) 80 - 105 12/24/2016 [facility] mm Hg 9:58 PM [facility] Bicarbonate 19 (L) 21 - 28 12/24/2016 [facility] Arterial mmol/L 9:58 PM [facility] Base Deficit Art 6.8 mmol/L 12/24/2016 [facility] F 9:58 PM [facility] Comment: Reference range: -9.0 to 1.8 FIO2 50 12/24/2016 9:54 PM [facility] Sodium 137 133 - 144 12/24/2016 9:58 PM [facility] mmol/L [facility] Potassium 3.7 3.4 - 5.3 12/24/2016 9:58 PM [facility] mmol/L [facility] Hemoglobin 7.5 (L) 11.7 - 15.7 12/24/2016 9:[address] g/dL [facility] Glucose 155 (H) 70 - 99 mg/dL 12/24/2016 9:58 PM [facility] Calcium Ionized 4.6 4.4 - 5.2 12/24/2016 9:[address] Whole Blood mg/dL [facility] Specimen Anatomical Collection Method Collection Time Receive d Time (Source) Location / / Volume Laterality 12/24/2016 9:50 PM 7 9:52 TAG WRITER PM TAG WRITER Nora Leyva MD LAB - BLOOD ORDERABLES Performing Organization Address City/State/ZIP Code Phon e Number [facility] [address] [place] [address] [facility] (ABNORMAL) Arterial Panel (12/24/2016 9:20 PM TAG WRITER) [facility] Method Time Signature pH Arterial 7.31 (L) 7.35 - 12/24/2016 [facility] 7.45 pH 9:28 PM [facility] pCO2 Arterial 40 35 - 45 12/24/2016 [facility] mm Hg 9:28 PM [facility] pO2 Arterial 191 (H) 80 - 105 12/24/2016 [facility] mm Hg 9:28 PM [facility] Bicarbonate 20 (L) 21 - 28 12/24/2016 [facility] Arterial mmol/L 9:28 PM [facility] Base Deficit Art 5.8 mmol/L 12/24/2016 [facility] F 9:28 PM [facility] Comment: Reference range: -9.0 to 1.8 FIO2 50% 12/24/2016 9:26 PM [facility] Sodium 136 133 - 144 12/24/2016 9:28 PM [facility] mmol/L [facility] Potassium 3.9 3.4 - 5.3 12/24/2016 9:28 PM [facility] mmol/L [facility] Hemoglobin 8.7 (L) 11.7 - 15.7 12/24/2016 9:[address] g/dL [facility] Glucose 165 (H) 70 - 99 mg/dL 12/24/2016 9:28 PM [facility] Calcium Ionized 4.4 4.4 - 5.2 12/24/2016 9:[address] Whole Blood mg/dL [facility] Specimen Anatomical Collection Method Collection Time Receive d Time (Source) Location / / Volume Laterality 12/24/2016 9:20 PM 7 9:25 TAG WRITER PM TAG WRITER Nora Leyva MD LAB - BLOOD ORDERABLES Performing Organization Address City/[facility]/ZIP Code Phon e Number [address] [address] [facility] Blood component (12/24/2016 8:45 PM TAG WRITER) [facility] [employer] Method Time Signature Unit Number [id number] 12/24/2016 [facility] 7 10:07 PM [facility] Blood PlateletPher 12/24/2016 [facility] Component esis,LeukoRe 10:07 PM [facility] 00 12/24/2016 [facility] Number 10:07 PM [facility] Status of Released to 12/24/2016 [facility] Unit care unit 11:58 PM [facility] Blood Product [id number] 12/24/2016 [facility] Code 10:07 PM [facility] Unit Status [facility] Specimen Anatomical Collection Method Collection Time Receive d Time (Source) Location / / Volume Laterality 12/24/2016 8:45 PM 7 8:50 TAG WRITER PM TAG WRITER Nora Leyva MD LABORATORY Performing Organization Address City/State/ZIP Code Phon e Number [facility] [address] [place] [address] [address] [facility] Blood component (12/24/2016 8:45 PM TAG WRITER) [facility] [employer] Method Time Signature Unit Number [id number] 12/24/2016 [facility] OF 2 8:[address] [facility] BANK Blood PlateletPher 12/24/2016 [facility]ITY OF Component esis,LeukoRe 8:52 PM TAG WRITER [facility] WEST (Part 2) BANK Division 00 12/24/2016 [facility] OF Number 8:52 PM TAG WRITER [facility] WEST BANK Status of Released to 12/24/2016 [facility] OF Unit care unit 11:58 PM TAG WRITER [facility] Blood Product [id number] 12/24/2016 [facility] OF Code 8:52 PM TAG WRITER [facility] BANK Unit Status [facility] Specimen Anatomical Collection Method Collection Time Receive d Time (Source) Location / / Volume Laterality 12/24/2016 8:45 PM 7 8:50 TAG WRITER PM TAG WRITER Nora Leyva MD LABORATORY Performing Organization Address City/[facility]/ZIP [facility] [place] Ph[place] e Number [facility] [address] [place], [place] [id number] [place] [address] [facility] Platelets prepare order unit (12/24/2016 8:45 PM TAG WRITER) Patholo gist Method Time Signature Blood PLT Pheresis 12/24/2016 [facility] OF [facility] 8:50 PM [facility] Units Ordered 2 12/24/2016 [facility] OF 10:07 PM [facility] Specimen Anatomical Collection Method Collection Time Receive d Time (Source) Location / / Volume Laterality 12/24/2016 8:45 PM 7 8:50 TAG WRITER PM TAG WRITER Nora Leyva MD BLOOD BANK PRODUCT ORDERABLE S Performing Organization Address City/[facility]/ZIP Code Phon e Number [address] [address] [facility] Partial thromboplastin time (12/24/2016 8:44 PM TAG WRITER) P athologist Signature PTT 30 22 - 37 sec 12/24/2016 [facility] 9:05 PM [facility] Specimen Anatomical Collection Method Collection Time Receive d Time (Source) Location / / Volume Laterality 12/24/2016 8:44 PM 7 8:51 TAG WRITER PM TAG WRITER Nora Leyva MD LAB - BLOOD ORDERABLES Performing Organization Address City/State/ZIP Code Phon e Number [address] [address] [facility] (ABNORMAL) INR (12/24/2016 8:44 PM TAG WRITER) P athologist Signature INR 1.16 (H) 0.86 - 1.14 12/24/2016 [facility] OF 9:05 PM [facility] Specimen Anatomical Collection Method Collection Time Receive d Time (Source) Location / / Volume Laterality 12/24/2016 8:44 PM 7 8:51 TAG WRITER PM TAG WRITER Nora Leyva MD LAB - BLOOD ORDERABLES Performing Organization Address City/State/ZIP Code Phon e Number [address] [address] [facility] Fibrinogen activity (12/24/2016 8:44 PM TAG WRITER) athologist Signature Fibrinogen 328 200 - 420 12/24/2016 [facility] OF mg/dL 9:05 PM [facility] Specimen Anatomical Collection Method Collection Time Receive d Time (Source) Location / / Volume Laterality 12/24/2016 8:44 PM 7 8:51 TAG WRITER PM TAG WRITER Nora Leyva MD LAB - BLOOD ORDERABLES Performing Organization Address City/State/ZIP Code Phon e Number [address] [address] [facility] (ABNORMAL) CBC with platelets (12/24/2016 8:44 PM TAG WRITER) [facility] gist Method Time Signature WBC 5.8 4.0 - 11.0 12/24/2016 [facility] OF 10e9/L 9:16 PM [facility] RBC Count 2.70 (L) 3.8 - 5.2 12/24/2016 [facility] OF 10e12/L 9:16 PM [facility] Hemoglobin 7.7 (L) 11.7 - 12/24/2016 [facility] OF 15.7 g/dL 9:16 PM [facility] Hematocrit 24.0 (L) 35.0 - 12/24/2016 [facility] OF 47.0 % 9:16 PM [facility] MCV 89 78 - 100 12/24/2016 [facility] OF fl 9:16 PM [facility] MCH 28.5 26.5 - 12/24/2016 [facility] OF 33.0 pg 9:16 PM [facility] MCHC 32.1 31.5 - 12/24/2016 [facility] OF 36.5 g/dL 9:16 PM [facility] RDW 16.4 (H) 10.0 - 12/24/2016 [facility] OF 15.0 % 9:16 PM [facility] Platelet Count 156 150 - 450 12/24/2016 [facility] OF 10e9/L 9:16 PM [facility] Specimen Anatomical Collection Method Collection Time Receive d Time (Source) Location / / Volume Laterality 12/24/2016 8:44 PM 7 8:51 TAG WRITER PM TAG WRITER Nora Leyva MD LAB - BLOOD ORDERABLES Performing Organization Address City/State/ZIP Code Phon e Number [facility] [address] [place] [address] [facility] (ABNORMAL) Arterial Panel (12/24/2016 8:44 PM [facility]) [facility] gist Method Time Signature pH Arterial 7.29 (L) 7.35 - 12/24/2016 [facility] 7.45 pH 8:56 PM [facility] pCO2 Arterial 41 35 - 45 12/24/2016 [facility] mm Hg 8:56 PM [facility] pO2 Arterial 355 (H) 80 - 105 12/24/2016 [facility] mm Hg 8:56 PM [facility] Bicarbonate 20 (L) 21 - 28 12/24/2016 [facility] Arterial mmol/L 8:56 PM [facility] Base Deficit Art 6.1 mmol/L 12/24/2016 [facility] F 8:56 PM [facility] Comment: Reference range: -9.0 to 1.8 FIO2 100% 12/24/2016 8:53 PM [facility] Sodium 137 133 - 144 12/24/2016 8:56 PM [facility] mmol/L [facility] Potassium 3.6 3.4 - 5.3 12/24/2016 8:56 PM [facility] mmol/L [facility] Hemoglobin 7.6 (L) 11.7 - 15.7 12/24/2016 8:56 PM [facility] g/dL [facility] Glucose 160 (H) 70 - 99 mg/dL 12/24/2016 8:56 PM [facility] Calcium Ionized 4.1 (L) 4.4 - 5.2 12/24/2016 8:[address] Whole Blood mg/dL [facility] Specimen Anatomical Collection Method Collection Time Receive d Time (Source) Location / / Volume Laterality 12/24/2016 8:44 PM 7 8:51 TAG WRITER PM TAG WRITER Nora Leyva MD LAB - BLOOD ORDERABLES Performing Organization Address City/State/ZIP Code Phon e Number [facility] [address] [place] [address] [facility] (ABNORMAL) Arterial Panel (12/24/2016 8:25 PM [facility]) [facility] Method Time Signature pH Arterial 7.30 (L) 7.35 - 12/24/2016 [facility] 7.45 pH 8:33 PM [facility] pCO2 Arterial 40 35 - 45 12/24/2016 [facility] mm Hg 8:33 PM [facility] pO2 Arterial 195 (H) 80 - 105 12/24/2016 [facility] mm Hg 8:33 PM [facility] Bicarbonate 19 (L) 21 - 28 12/24/2016 [facility] OF Arterial mmol/L 8:33 PM [facility] Base Deficit Art 6.6 mmol/L 12/24/2016 [facility] O F 8:33 PM [facility] Comment: Reference range: -9.0 to 1.8 FIO2 100% 12/24/2016 8:29 PM [facility] Sodium 135 133 - 144 12/24/2016 8:33 PM [facility] mmol/L [facility] Potassium 4.1 3.4 - 5.3 12/24/2016 8:33 PM [facility] mmol/L [facility] Hemoglobin 8.0 (L) 11.7 - 15.7 12/24/2016 8:33 PM [place] g/dL [facility] Glucose 136 (H) 70 - 99 mg/dL 12/24/2016 8:33 PM [facility] Calcium Ionized 4.3 (L) 4.4 - 5.2 12/24/2016 8:[address] Whole Blood mg/dL [facility] Specimen Anatomical Collection Method Collection Time Receive d Time (Source) Location / / Volume Laterality 12/24/2016 8:25 PM 7 8:29 TAG WRITER PM TAG WRITER Nora Leyva MD LAB - BLOOD ORDERABLES Performing Organization Address City/[facility]/ZIP Code Phon e Number [address] [address] [facility] Blood component (12/24/2016 7:25 PM TAG WRITER) [facility] [employer] Method Time Signature Unit Number [id number] 12/24/2016 [facility] OF 10:10 PM [facility] Blood Plasma, 12/24/2016 [facility] OF Component Thawed 10:10 PM TAG WRITER [facility] BANK Division 00 12/24/2016 [facility] Number 10:10 PM [facility] Status of No longer 12/24/2016 [facility] Unit available 11:49 PM [facility] 12/24/2016 [facility] 2349 BANK Blood Product [id number] 12/24/2016 [facility] OF Code 10:10 PM [facility] Unit Status RET [facility] Specimen Anatomical Collection Method Collection Time Receive d Time (Source) Location / / Volume Laterality 12/24/2016 7:25 PM 7 7:30 TAG WRITER PM TAG WRITER Nora Leyva MD LAB - BLOOD BANK PRODUCT ORD ER Performing Organization Address City/[facility]/ZIP Code Phon e Number [address] [address] [facility] Blood component (12/24/2016 7:25 PM TAG WRITER) [facility] [employer] Method Time Signature Unit Number [id number] 12/24/2016 [facility] OF 10:10 PM [facility] Blood Plasma, 12/24/2016 [facility] OF Component Thawed 10:10 PM [facility]ST BANK Division 00 12/24/2016 [facility] Number 10:10 PM [facility] Status of No longer 12/24/2016 [facility] OF Unit available 11:48 PM [facility] 12/24/2016 [facility]348 BANK Blood Product [id number] 12/24/2016 [facility] OF Code 10:10 PM TAG WRITER [facility] Unit Status RET [facility] Specimen Anatomical Collection Method Collection Time Receive d Time (Source) Location / / Volume Laterality 12/24/2016 7:25 PM 7 7:30 TAG WRITER PM TAG WRITER Nora Leyva MD LAB - BLOOD BANK PRODUCT ORD ER Performing Organization Address City/[facility]/ZIP Code Phon e Number [address] [address] [facility] Blood component (12/24/2016 7:25 PM TAG WRITER) [facility] gist Method Time Signature Unit Number [id number] 12/24/2016 [facility] 9 9:03 PM TAG WRITER [facility] Blood Plasma, 12/24/2016 [facility] OF Component Thawed 9:03 PM TAG WRITER [facility] BANK Division 00 12/24/2016 [facility] Number 9:03 PM [facility] Status of Released to 12/24/2016 [facility] OF Unit care unit 11:58 PM TAG WRITER [facility] Blood Product [id number] 12/24/2016 [facility] OF Code 9:03 PM [facility] Unit Status [facility] Specimen Anatomical Collection Method Collection Time Receive d Time (Source) Location / / Volume Laterality 12/24/2016 7:25 PM 7 7:30 TAG WRITER PM TAG WRITER Nora Leyva MD LABORATORY Performing Organization Address City/[facility]/ZIP Code Phon e Number [address] [address] [facility] Blood component (12/24/2016 7:25 PM TAG WRITER) [facility] gist Method Time Signature Unit Number [id number] 12/24/2016 [facility] OF 7 9:[address] [facility] BANK Blood Plasma, 12/24/2016 UN[facility]ITY OF Component Thawed 9:03 PM [facility] BANK Division 00 12/24/2016 [facility] Number 9:03 PM [facility] Status of Released to 12/24/2016 [facility] OF Unit care unit 11:58 PM [facility] Blood Product [id number] 12/24/2016 [facility] OF Code 9:03 PM TAG WRITER [facility] BANK Unit Status [facility] Specimen Anatomical Collection Method Collection Time Receive d Time (Source) Location / / Volume Laterality 12/24/2016 7:25 PM 7 7:30 TAG WRITER PM TAG WRITER Nora Leyva MD LABORATORY Performing Organization Address City/[facility]/ZIP Code Phon e Number [facility] [address] [place] [address] [address] [facility] Blood component (12/24/2016 7:25 PM TAG WRITER) [facility] [employer] Method Time Signature Unit Number [id number] 12/24/2016 [facility] OF 8:18 PM [address] [facility] BANK Blood Apheresis 12/24/2016 [facility] OF Component Plasma Thawed 8:18 PM TAG WRITER [facility] BANK Division 00 12/24/2016 [facility] OF Number 8:18 PM [address] [facility] BANK Status of Released to 12/24/2016 [facility] OF Unit care unit 11:58 PM TAG WRITER [facility] Blood Product [id number] 12/24/2016 [facility] OF Code 8:18 PM TAG WRITER [facility] BANK Unit Status [facility] Specimen Anatomical Collection Method Collection Time Receive d Time (Source) Location / / Volume Laterality 12/24/2016 7:25 PM 7 7:30 TAG WRITER PM TAG WRITER Nora Leyva MD LABORATORY Performing Organization Address City/[facility]/ZIP Code Phon e Number [facility] [address] [place] [address] [address] [facility] Blood component (12/24/2016 7:25 PM TAG WRITER) [facility] gist Method Time Signature Unit Number [id number] 12/24/2016 [facility] OF 5 8:18 [address] [facility] BANK Blood Plasma, 12/24/2016 UN[facility] OF Component Thawed 8:18 PM TAG WRITER [facility] BANK Division 00 12/24/2016 [facility] OF Number 8:18 PM TAG WRITER [facility] BANK Status of Released to 12/24/2016 [facility] OF Unit care unit 11:58 PM TAG WRITER [facility] Blood Product [id number] 12/24/2016 [facility] OF Code 8:18 PM TAG WRITER [facility] BANK Unit Status [facility] Specimen Anatomical Collection Method Collection Time Receive d Time (Source) Location / / Volume Laterality 12/24/2016 7:25 PM 7 7:30 TAG WRITER PM TAG WRITER Nora Leyva MD LABORATORY Performing Organization Address City/[facility]/ZIP Code Phon e Number [facility] [address] [place] [address] [address] [facility] Blood component (12/24/2016 7:25 PM TAG WRITER) [facility] [employer] Method Time Signature Unit Number [id number] 12/24/2016 UN[facility]ITY OF 3 8:18 [address] [facility] BANK Blood Plasma, 12/24/2016 UN[facility]ITY OF Component Thawed 8:18 PM TAG WRITER [facility] BANK Division 00 12/24/2016 [facility] OF Number 8:18 PM TAG WRITER [facility] BANK Status of Released to 12/24/2016 [facility] OF Unit care unit 11:58 PM TAG WRITER [facility] Blood Product [id number] 12/24/2016 [facility]ITY OF Code 8:18 PM TAG WRITER [facility] BANK Unit Status [facility] Specimen Anatomical Collection Method Collection Time Receive d Time (Source) Location / / Volume Laterality 12/24/2016 7:25 PM 7 7:30 TAG WRITER PM TAG WRITER Nora Leyva MD LABORATORY Performing Organization Address City/[facility]/ZIP Code Phon e Number [facility] [address] [place] [address] [address] [facility] Blood component (12/24/2016 7:25 PM TAG WRITER) [facility] [employer] Method Time Signature Unit Number [id number] 12/24/2016 [facility] OF 9 8:18 PM TAG WRITER [facility] BANK Blood Plasma, 12/24/2016 UN[facility]ITY OF Component Thawed 8:18 PM TAG WRITER [facility] BANK Division 00 12/24/2016 [facility] OF Number 8:18 PM TAG WRITER [facility] BANK Status of Released to 12/24/2016 UN[facility]ITY OF Unit care unit 11:58 PM TAG WRITER [facility] Blood Product [id number] 12/24/2016 UN[facility]ERSITY OF Code 8:18 PM TAG WRITER [facility] Unit Status [facility] Specimen Anatomical Collection Method Collection Time Receive d Time (Source) Location / / Volume Laterality 12/24/2016 7:25 PM 7 7:30 TAG WRITER PM TAG WRITER Nora Leyva MD LABORATORY Performing Organization Address City/State/ZIP Code Phon e Number [facility] [address] [place] [address] [address] [facility] Plasma prepare order unit (12/24/2016 7:25 PM TAG WRITER) P athologist Signature Blood Plasma 12/24/2016 UNIVERSITY OF Component Type 7:31 PM [facility] Units Ordered 8 12/24/2016 UN[facility]ITY OF 10:10 PM [facility] Specimen Anatomical Collection Method Collection Time Receive d Time (Source) Location / / Volume Laterality 12/24/2016 7:25 PM 7 7:30 TAG WRITER PM TAG WRITER Nora Leyva MD BLOOD BANK PRODUCT ORDERABLE S Performing Organization Address City/[facility]/ZIP Code Phon e Number [address] [address] [facility] (ABNORMAL) CBC with platelets differential (12/24/2016 7:06 PM TAG WRITER) Patholo gist Method Time Signature WBC 10.4 4.0 - 12/24/2016 [facility] OF 11.0 7:11 PM [facility] 10e9/L [facility] RBC Count 2.99 (L) 3.8 - 5.2 12/24/2016 UN[facility] OF 10e12/L 7:11 PM [facility] Hemoglobin 9.0 (L) 11.7 - 12/24/2016 [facility] OF 15.7 g/dL 7:11 PM [facility] Hematocrit 28.5 (L) 35.0 - 12/24/2016 [facility] OF 47.0 % 7:11 PM [facility] MCV 95 78 - 100 12/24/2016 UNIVERSITY OF fl 7:11 PM [facility] MCH 30.1 26.5 - 12/24/2016 UN[facility]ERS[facility] OF 33.0 pg 7:11 PM [facility] MCHC 31.6 31.5 - 12/24/2016 UN[facility]ERSITY OF 36.5 g/dL 7:11 PM [facility] RDW 16.1 (H) 10.0 - 12/24/2016 UN[facility]ERSITY OF 15.0 % 7:11 PM [facility] Platelet Count 256 150 - 450 12/24/2016 [facility]ERSITY OF 10e9/L 7:11 PM [facility] Diff Method Automated 12/24/2016 UN[facility]ITY OF Method 7:11 PM [facility] % Neutrophils 69.4 % 12/24/2016 [facility] OF 7:11 PM [facility] % Lymphocytes 21.5 % 12/24/2016 [facility] OF 7:11 PM [facility] % Monocytes 5.7 % 12/24/2016 UN[facility] OF 7:11 PM [facility] % Eosinophils 2.9 % 12/24/2016 UN[facility]ITY OF 7:11 PM [facility] % Basophils 0.1 % 12/24/2016 [facility] OF 7:11 PM [facility] % Immature 0.4 % 12/24/2016 [facility] OF Granulocytes 7:11 PM [facility] Nucleated RBCs 0 0 /100 12/24/2016 [facility]ITY OF 7:11 PM [facility] Absolute 7.2 1.6 - 8.3 12/24/2016 UN[facility]ERS[facility] OF Neutrophil 10e9/L 7:11 PM [facility] Absolute 2.2 0.8 - 5.3 12/24/2016 [facility] OF Lymphocytes 10e9/L 7:11 PM [facility] Absolute 0.6 0.0 - 1.3 12/24/2016 UN[facility]ERSITY OF Monocytes 10e9/L 7:11 PM [facility] Absolute 0.3 0.0 - 0.7 12/24/2016 UN[facility]ERSITY OF Eosinophils 10e9/L 7:11 PM [facility] Absolute 0.0 0.0 - 0.2 12/24/2016 UN[facility]ERSITY OF Basophils 10e9/L 7:11 PM [facility] Abs Immature 0.0 0 - 0.4 12/24/2016 UN[facility]ERSITY OF Granulocytes 10e9/L 7:11 PM [facility] Absolute 0.0 12/24/2016 UN[facility]ERSITY OF Nucleated RBC 7:11 PM TAG WRITER [facility] Specimen Anatomical Collection Method Collection Time Receive d Time (Source) Location / / Volume Laterality Blood specimen 12/24/2016 7:06 PM 017 7:07 (specimen) TAG WRITER PM TAG WRITER Kayla Davidson MD LAB - BLOOD ORDERABLES Performing Organization Address City/[facility]/ZIP Code Phon e Number [facility] [address] [place] [address] [facility] Urine Culture Aerobic Bacterial (12/24/2016 7:50 AM TAG WRITER) Component Value Ref Test Analysis Performed At Patholo gist Range Method Time Signature Specimen Midstream Urine INFECTIOUS Description DISEASE DIAGNOSTIC LABORATORY Special Specimen received 12/24/2016 [place] in preservative 11:[address] [facility] Culture Micro <10,000 colonies/mL 12/25/2016 INFEC TIOUS mixed urogenital evelina 7:35 AM TAG WRITER [facility] SE Susceptibility testing not routinely done DIAGNOSTIC LABORATORY Specimen (Source) Anatomical Collection Method Collection Time Re ceived Time Location / / Volume Laterality Examination of 12/24/2016 7:50 12/24/2016 8:46 midstream urine AM TAG WRITER AM TAG WRITER specimen (procedure) Nora Leyva MD LAB - MICRO GENERAL ORDERABL ES Performing Organization Address City/[facility]/ZIP Code Phon e Number INFECTIOUS DISEASES [address] [place] [address] DIAGNOSTIC LABORATORY, [facility] INFECTIOUS DISEASE [address] [place] [address], [facility] DIAGNOSTIC LABORATORY [address] (ABNORMAL) UA with Microscopic reflex to Culture (12/24/2016 7:50 AM TAG WRITER) Patholo gist Method Time Signature Color Urine Yellow 12/24/2016 [facility] OF 8:35 AM TAG WRITER [facility] Appearance Urine Clear 12/24/2016 UN[facility]ITY O F 8:35 AM TAG WRITER [facility] Glucose Urine Negative NEG^Negat 12/24/2016 [facility] OF paula mg/dL 8:35 AM [facility] Bilirubin Urine Negative NEG^Negat 12/24/2016 [facility] OF paula 8:35 AM [facility] Ketones Urine Negative NEG^Negat 12/24/2016 [facility] OF [place] mg/dL 8:35 AM [facility] Specific [facility] 1.013 1.003 - 12/24/2016 UNIVERSITY O F Urine 1.035 8:35 AM [facility] Blood Urine Moderate (A) NEG^Negat 12/24/2016 [facility]ITY OF paula 8:35 AM [facility] pH Urine 6.5 5.0 - 7.0 12/24/2016 [facility] OF pH 8:35 AM [facility] Protein Albumin Negative NEG^Negat 12/24/2016 [facility] OF Urine paula mg/dL 8:35 AM [facility] Urobilinogen Normal 0.0 - 2.0 12/24/2016 [facility] OF mg/dL mg/dL 8:35 AM [facility] Nitrite Urine Negative NEG^Negat 12/24/2016 [facility] OF paula 8:35 AM [facility] Leukocyte Large (A) NEG^Negat 12/24/2016 [facility] OF Esterase Urine paula 8:35 AM [facility] Source Midstream 12/24/2016 [facility] OF Urine 8:06 AM [facility] WBC Urine 24 (H) 0 - 2 12/24/2016 [facility]ITY OF /HPF 8:37 AM [facility] RBC Urine 34 (H) 0 - 2 12/24/2016 [facility] OF /HPF 8:37 AM [facility] Bacteria Urine Few (A) NEG^Negat 12/24/2016 [facility] OF paula /HPF 8:37 AM [facility] Squamous 2 (H) 0 - 1 12/24/2016 [facility] OF Epithelial /HPF /HPF 8:37 AM [facility] Transitional Epi <1 0 - 1 12/24/2016 UNIVERSITY O F /HPF 8:37 AM [facility] Specimen (Source) Anatomical Collection Method Collection Time Re ceived Time Location / / Volume Laterality Examination of URINE SPECIMEN 12/24/2016 7:50 12/25/19 17 8:05 midstream urine OBTAINED BY CLEAN AM TAG WRITER AM [facility] specimen CATCH PROCEDURE / (procedure) Unknown Petrona Barone DO LAB - URINE ORDERABLES Performing Organization Address City/State/ZIP Code Phon e Number [facility] [address] [place] [address] [facility] (ABNORMAL) Wet prep (12/23/2016 11:53 PM TAG WRITER) Component Value Ref Test Analysis Performed At [facility] gist Range Method Time Signature Specimen Vagina [facility] Description [facility] Wet Prep No motile 12/24/2016 [facility] OF Trichomonas 12:21 AM [facility] seen [facility] Wet Prep Rare 12/24/2016 [facility] OF Yeast seen 12:21 AM [facility] (A) [facility] Wet Prep Moderate 12/24/2016 [facility]ITY OF PMNs seen 12:21 AM [facility] Wet Prep No clue cells 12/24/2016 [facility] OF seen 12:21 AM [facility] Specimen Anatomical Collection Method Collection Time Receive d Time (Source) Location / / Volume Laterality Specimen from 12/23/2016 11:53 12/24/2016 vagina PM TAG WRITER 12:10 AM TAG WRITER (specimen) Petrona Barone DO LAB - MICRO GENERAL ORDERABL ES Performing Organization Address City/State/ZIP Code Phon e Number [facility] [address] [place] [address] [facility] Maternal BPP Single (12/23/2016 8:37 AM TAG WRITER) Anatomical Region Laterality Modality Ultrasound Specimen (Source) Anatomical Collection Method Collection Time Re ceived Time Location / / Volume Laterality 12/23/2016 8:05 AM TAG WRITER Impressions 12/23/2016 11:10 AM TAG WRITER IMPRESSION 1) Intrauterine at 29 3/7 week s gestational age. 2) The BPP is reassuring. 3) The amniotic fluid volume low consist ent with known PPROM. 4) There is a complete posterior/lateral placenta previa. Narrative 12/23/2016 11:10 AM TAG WRITER BPP Pat. Name: DEANN KING Study Date: 8:05am Pat. NO: [id number] Referring ??MD: CHRIST LOZADA Site: [facility] Video Clerk: Jay Lu : 1980 Age: 36 INDICATION Premature Rupture of Membranes ( PPROM) Complete previa. METHOD [facility] ANTEPARTUM inpatient exam, Transabd ominal ultrasound [...] Pat. Name:Elizabeth KING Date:12/23 8:05am Pat. NO: [id number] :CHRIST BHAT ON Site:[facility]HACHAPIonographer:Yesenia Sen RDMS :1980Age:36 INDICATION Premature Rupture of Membranes ( PPROM) Complete previa. METHOD [facility] ANTEPARTUM inpatient exam, Transabd ominal ultrasound [...] complete posterior/lateral placenta previa. Lashawn Patel MD [facility] ORDERABLES Blood component (12/23/2016 6:54 AM TAG WRITER) Audanika Method Time Signature Unit Number [id number] 12/24/2016 [facility]ITY OF 9:49 [address] [facility] BANK Blood Red Blood 12/24/2016 [facility]ITY OF Component Cells 9:49 PM [facility] Reduced BANK Division 00 12/24/2016 [facility] OF Number 9:49 PM [facility] Status of Released to 12/24/2016 [facility]ITY OF Unit care unit 11:58 PM [facility] Blood Product [id number] 12/24/2016 [facility] OF Code 9:49 PM [facility] Unit Status [facility] Specimen Anatomical Collection Method Collection Time Receive d Time (Source) Location / / Volume Laterality 12/23/2016 6:54 AM 7 6:55 TAG WRITER AM TAG WRITER [facility] LABORATORY Performing Organization Address City/State/ZIP Code Phon e Number [facility] [address] [place], [place] [id number] [place] [id number] [place] [address] Blood component (12/23/2016 6:54 AM TAG WRITER) Audanika Method Time Signature Unit Number [id number] 12/24/2016 [facility] 9:49 PM [facility] Blood Red Blood 12/24/2016 [facility] OF Component Cells 9:49 PM [facility] Reduced BANK Division 00 12/24/2016 [facility] OF Number 9:49 PM [facility] Status of No longer 12/24/2016 UN[facility] OF Unit available 11:50 PM [facility] 12/24/2016 [facility] 2350 BANK Blood Product [id number] 12/24/2016 [facility] OF Code 9:49 PM TAG WRITER [facility] Unit Status RET [facility] Specimen Anatomical Collection Method Collection Time Receive d Time (Source) Location / / Volume Laterality 12/23/2016 6:54 AM 7 6:55 TAG WRITER AM TAG WRITER [facility] LABORATORY Performing Organization Address City/State/ZIP Code Phon e Number [address] [address] [facility] Blood component (12/23/2016 6:54 AM TAG WRITER) Patholo gist Method Time Signature Unit Number [id number] 12/24/2016 [facility]ITY OF 9:49 [address] [facility] BANK Blood Red Blood 12/24/2016 [facility]ITY OF Component Cells 9:49 PM TAG WRITER [facility] Reduced BANK Division 00 12/24/2016 [facility] OF Number 9:49 [address] [facility] B[facility] Status of Released to 12/24/2016 [facility] OF Unit care unit 11:58 PM TAG WRITER [facility] Blood Product [id number] 12/24/2016 [facility] OF Code 9:49 PM TAG WRITER [facility] B[facility] Unit Status [facility] Specimen Anatomical Collection Method Collection Time Receive d Time (Source) Location / / Volume Laterality 12/23/2016 6:54 AM 7 6:55 TAG WRITER AM TAG WRITER [facility] LAB - BLOOD BANK PRODUCT ORD ER Performing Organization Address City/[facility]/ZIP Code Phon e Number [facility] [address] [place] [address] [address] [facility] Blood component (12/23/2016 6:54 AM TAG WRITER) Patholo gist Method Time Signature Unit Number [id number] 12/24/2016 [facility]ITY OF 9:49 PM [address] [facility] BANK Blood Red Blood 12/24/2016 UN[facility]ITY OF Component Cells 9:49 PM TAG WRITER [facility] Reduced BANK Division 00 12/24/2016 [facility] OF Number 9:49 PM [address] [facility] Status of Released to 12/24/2016 [facility] OF Unit care unit 11:58 PM TAG WRITER [facility] Blood Product [id number] 12/24/2016 [facility] OF Code 9:49 PM TAG WRITER [facility] Unit Status [facility] Specimen Anatomical Collection Method Collection Time Receive d Time (Source) Location / / Volume Laterality 12/23/2016 6:54 AM 7 6:55 TAG WRITER AM TAG WRITER Nora Mohamud LAB - BLOOD BANK PRODUCT ORD ER Performing Organization Address City/[facility]/ZIP Code Phon e Number [facility] [address] [place] [address] [address] [facility] Blood component (12/23/2016 6:54 AM TAG WRITER) Audanika Method Time Signature Unit Number [id number] 12/24/2016 [facility]ITY OF 8:38 PM [facility] B[facility] Blood Red Blood 12/24/2016 UN[facility]ERSITY OF Component Cells 8:38 PM TAG WRITER [facility] Reduced BANK Division 00 12/24/2016 [facility] OF Number 8:38 PM [facility] B[facility] Status of Released to 12/24/2016 UN[facility]ITY OF Unit care unit 11:58 PM TAG WRITER [facility] Blood Product [id number] 12/24/2016 UN[facility]ITY OF Code 8:38 PM [facility] Unit Status [facility] Specimen Anatomical Collection Method Collection Time Receive d Time (Source) Location / / Volume Laterality 12/23/2016 6:54 AM 7 6:55 TAG WRITER AM TAG WRITER [facility] LAB - BLOOD BANK PRODUCT ORD ER Performing Organization Address City/[facility] Care [facility] Code Phon e Number [facility] [address] [place] [address] [address] [facility] Blood component (12/23/2016 6:54 AM TAG WRITER) Audanika Method Time Signature Unit Number [id number] 12/24/2016 UN[facility]ERSITY OF 8:38 PM TAG WRITER [facility] B[facility] Blood Red Blood 12/24/2016 UN[facility]ERSITY OF Component Cells 8:38 PM TAG WRITER [facility] Reduced BANK Division 00 12/24/2016 UN[facility]ITY OF Number 8:38 PM [facility] B[facility] Status of Released to 12/24/2016 UN[facility]ITY OF Unit care unit 11:58 PM TAG WRITER [facility] Blood Product [id number] 12/24/2016 UN[facility]ITY OF Code 8:38 PM TAG WRITER [facility] Unit Status [facility] Specimen Anatomical Collection Method Collection Time Receive d Time (Source) Location / / Volume Laterality 12/23/2016 6:54 AM 7 6:55 TAG WRITER AM TAG WRITER Nora Munguia Cade LAB - BLOOD BANK PRODUCT ORD ER Performing Organization Address City/State/ZIP Code Phon e Number [facility] [address] [place] [address] [address] [facility] Blood component (12/23/2016 6:54 AM TAG WRITER) [facility] Method Time Signature Unit Number [id number] 12/24/2016 [facility]ITY OF 8:38 PM TAG WRITER [facility] Blood Red Blood 12/24/2016 UN[facility]ERSITY OF Component Cells 8:38 PM TAG WRITER [facility] Leukocyte [facility] Reduced BANK Division 00 12/24/2016 UN[facility]ERSITY OF Number 8:38 PM TAG WRITER [facility] Status of Released to 12/24/2016 UN[facility]ERSITY OF Unit care unit 11:58 PM TAG WRITER [facility] Blood Product [id number] 12/24/2016 UN[facility]ERSITY OF Code 8:38 PM TAG WRITER [facility] Unit Status [facility] Specimen Anatomical Collection Method Collection Time Receive d Time (Source) Location / / Volume Laterality 12/23/2016 6:54 AM 7 6:55 TAG WRITER AM TAG WRITER Nora Mohamud LABORATORY Performing Organization Address City/[facility] Care [facility] Code Phon e Number [facility] [address] [place] [address] [address] [facility] Blood component (12/23/2016 6:54 AM TAG WRITER) Audanika Method Time Signature Unit Number [id number] 12/24/2016 UN[facility]ERSITY OF 8:38 PM TAG WRITER [facility] Blood Red Blood 12/24/2016 UNIVERSITY OF Component Cells 8:38 PM TAG WRITER [facility] Reduced BANK Division 00 12/24/2016 UN[facility]ERSITY OF Number 8:38 PM TAG WRITER [facility] Status of Released to 12/24/2016 UN[facility]ERSITY OF Unit care unit 11:58 PM TAG WRITER [facility] Blood Product [id number] 12/24/2016 UN[facility]ERSITY OF Code 8:38 PM TAG WRITER [facility] Unit Status [facility] Specimen Anatomical Collection Method Collection Time Receive d Time (Source) Location / / Volume Laterality 12/23/2016 6:54 AM 7 6:55 TAG WRITER AM TAG WRITER [facility] LABORATORY Performing Organization Address City/State/ZIP Code Phon e Number [facility] [address] [place] [address] [place] [id number] [place] [address] [facility] Blood component (12/23/2016 6:54 AM TAG WRITER) [facility] [employer] Method Time Signature Unit Number [id number] 12/24/2016 UNIVERSITY OF 7:32 PM TAG WRITER [facility] Blood Red Blood 12/24/2016 UNIVERSITY OF Component Cells 7:32 PM TAG WRITER [facility] Leukocyte [facility] Reduced BANK Division 00 12/24/2016 UN[facility]ERSITY OF Number 7:32 PM TAG WRITER [facility] Status of Released to 12/24/2016 UNIVERSITY OF Unit care unit 11:58 PM TAG WRITER [facility] Blood Product [id number] 12/24/2016 UN[facility]ERSITY OF Code 7:32 PM TAG WRITER [facility] Unit Status [facility] Specimen Anatomical Collection Method Collection Time Receive d Time (Source) Location / / Volume Laterality 12/23/2016 6:54 AM 7 6:55 TAG WRITER AM TAG WRITER [facility] LABORATORY Performing Organization Address City/State/ZIP Code Phon e Number [facility] [address] [place] [address] [facility] [address] [place] [address] [facility] Blood component (12/23/2016 6:54 AM TAG WRITER) [facility] [employer] Method Time Signature Unit Number [id number] 12/24/2016 UNIVERSITY OF 7:32 PM TAG WRITER [facility] Blood Red Blood 12/24/2016 UNIVERSITY OF Component Cells 7:32 PM TAG WRITER [facility] Leukocyte [facility] Reduced BANK Division 00 12/24/2016 UN[facility]ERSITY OF Number 7:32 PM TAG WRITER [facility] Status of Released to 12/24/2016 UNIVERSITY OF Unit care unit 11:58 PM TAG WRITER [facility] Blood Product [id number] 12/24/2016 UNIVERSITY OF Code 7:32 PM TAG WRITER [facility] Unit Status [facility] Specimen Anatomical Collection Method Collection Time Receive d Time (Source) Location / / Volume Laterality 12/23/2016 6:54 AM 7 6:55 TAG WRITER AM TAG WRITER [facility] LABORATORY Performing Organization Address City/State/ZIP Code Phon e Number [facility] [address] [place] [address] [address] [place] [facility] Blood component (12/23/2016 6:54 AM TAG WRITER) [facility] [employer] Method Time Signature Unit Number [id number] 12/24/2016 UNIVERSITY OF 7:05 PM TAG WRITER [facility] Blood Red Blood 12/24/2016 UNIVERSITY OF Component Cells 7:05 PM TAG WRITER [facility] Reduced BANK Division 00 12/24/2016 UNIVERSITY OF Number 7:05 PM [facility] Status of Released to 12/24/2016 UNIVERSITY OF Unit care unit 11:58 PM TAG WRITER [facility] Blood Product [id number] 12/24/2016 UNIVERSITY OF Code 7:05 PM [facility] Unit Status [facility] Specimen Anatomical Collection Method Collection Time Receive d Time (Source) Location / / Volume Laterality 12/23/2016 6:54 AM 7 6:55 TAG WRITER AM TAG WRITER [facility] LABORATORY Performing Organization Address City/State/ZIP Code Phon e Number [facility] [address] [place] [address] [address] [facility] Blood component (12/23/2016 6:54 AM TAG WRITER) [facility] [employer] Method Time Signature Unit Number [id number] 12/24/2016 UN[facility]ERSITY OF 7:05 PM [facility] B[facility] Blood Red Blood 12/24/2016 UNIVERSITY OF Component Cells 7:05 PM TAG WRITER [facility] BANK Division 00 12/24/2016 UNIVERSITY OF Number 7:05 PM [facility] Status of Released to 12/24/2016 UN[facility]ERSITY OF Unit care unit 11:58 PM [facility] Blood Product [id number] 12/24/2016 UNIVERSITY OF Code 7:05 PM [facility] Unit Status [facility] Specimen Anatomical Collection Method Collection Time Receive d Time (Source) Location / / Volume Laterality 12/23/2016 6:54 AM 7 6:55 TAG WRITER AM TAG WRITER [facility] LABORATORY Performing Organization Address City/[facility] Care [facility]/ZIP Code Phon e Number [facility] [address] [place] [address] [address] [facility] ABO/Rh type and screen (12/23/2016 6:54 AM TAG WRITER) [facility] gist Method Time Signature Units Ordered 12 12/24/2016 [facility] 9:49 PM [facility] ABO B 12/23/2016 [facility] OF 7:32 AM [facility] RH(D) Pos [facility] Antibody Neg 12/23/2016 UN[facility]ERSITY OF Screen 7:32 AM [facility] Test Valid [facility] 12/23/2016 [facility] 7:01 AM [facility] BANK w Hospital Specimen 12/26/2016 12/23/2016 UNIVERSITY OF Expires 7:01 AM [facility] Crossmatch Red Blood 12/24/2016 UNIVERSITY OF Cells 7:05 PM [facility] Specimen Anatomical Collection Method Collection Time Receive d Time (Source) Location / / Volume Laterality Blood specimen 12/23/2016 6:54 AM 017 6:55 (specimen) TAG WRITER AM TAG WRITER Nora Mohamud LAB - BLOOD BANK TEST ORDER Performing Organization Address City/State/ZIP Code Phon e Number [address] [address] [facility] ABO/Rh type and screen (12/20/2016 10:48 AM CDT) [facility] [employer] Method Time Signature ABO B 12/20/2016 UN[facility]ERSITY OF 11:31 AM CDT [facility] RH(D) Pos [facility] Antibody Neg 12/20/2016 UN[facility]ERSITY OF Screen 11:31 AM CDT [facility] Test Valid University 12/20/2016 [facility] [place] 11:[address] [facility] BANK w Hospital Specimen 12/23/2016 12/20/2016 UNIVERSITY OF Expires 11:00 AM CDT [facility] Specimen Anatomical Collection Method Collection Time Receive d Time (Source) Location / / Volume Laterality Blood specimen 12/20/2016 10:48 7 (specimen) AM CDT 10:49 AM CDT Lashawn Patel MD LAB - BLOOD BANK TEST ORDER Performing Organization Address City/State/ZIP Code Phon e Number [facility] [address] [place] [address] [facility] Maternal BPP Single (12/19/2016 8:46 AM CDT) Anatomical Region Laterality Modality Ultrasound Specimen (Source) Anatomical Collection Method Collection Time Re ceived Time Location / / Volume Laterality 12/19/2016 8:16 AM CDT Impressions 12/25/2016 9:13 AM TAG WRITER IMPRESSION 1) Intrauterine at 28 6/7 week s gestational age. 2) The BPP is reassuring. 3) Oligohydramnios is seen consistent wi th know PPROM. 4) A complete posterior placenta previa is again seen. Narrative 12/25/2016 9:13 AM TAG WRITER BPP Pat. Name: DEANN KING Study Date: 8:16am Pat. NO: [id number] Referring ??MD: CHRIST LOZADA Site: [facility] Video Clerk: Jay Lu : 1980 Age: 36 INDICATION Premature Rupture of Membranes ( PPROM) Complete previa. METHOD [facility] ANTEPARTUM inpatient exam, Transabd ominal ultrasound [...] noriega with the patient. [facility] Continue inpatient management [...] Pat. Name:Elizabeth KING Date:12/19 8:16am Pat. NO: [id number] MD:CHRIST BHAT ON [facility]Yesenia Sen RDMS :1980Age:36 INDICATION Premature Rupture of Membranes ( PPROM) Complete previa. METHOD [facility] ANTEPARTUM inpatient exam, Transabd ominal ultrasound [...] rasound with the patient. [facility]. Continue inpatient management [...] previa is again seen. [facility]rum [facility] ABO/Rh type and screen (12/17/2016 6:54 AM CDT) [facility] [employer] Method Time Signature ABO B 12/17/2016 UNIVERSITY 7:49 AM CDT [facility] RH(D) Pos [facility] Antibody Neg 12/17/2016 UNIVERSITY OF Screen 7:49 AM CDT [facility] Test Valid University 12/17/2016 [facility] [facility] [place] 7:[address] [facility] BANK w Hospital Specimen 12/20/2016 12/17/2016 UNIVERSITY OF Expires 7:18 AM CDT [facility] Specimen Anatomical Collection Method Collection Time Receive d Time (Source) Location / / Volume Laterality Blood specimen 12/17/2016 6:54 AM 017 6:56 (specimen) CDT AM CDT [facility] LAB - BLOOD BANK TEST ORDER Performing Organization Address City/State/ZIP Code Phon e Number [facility] [address] [place] [address] [facility] Maternal US [...] DEANN KING Study Date: 8:43am Pat. NO: [id number] Referring ??: CHRIST LOZADA Site: [facility] Video Clerk: Jay Lu : 1980 Age: 36 INDICATION Premature Rupture of Membranes ( PPROM) Complete previa. METHOD [facility] ANTEPARTUM inpatient exam, Transabd ominal ultrasound [...] Pat. Name:Elizabeth KING Date:12/16 8:43am Pat. NO: [id number] :CHRIST BHAT ON [facility]:Yesenia Sen RDMS :1980Age:36 INDICATION Premature Rupture of Membranes ( PPROM) Complete previa. [facility] ANTEPARTUM inpatient exam, Transabd ominal ultrasound [...] stent with known PPROM. Erum Manzanares MD [facility] ORDERABLES ABO/Rh type and screen (12/14/2016 12:28 AM CDT) [facility] Method Time Signature ABO B 12/14/2016 UNIVERSITY OF 4:01 AM CDT [facility] RH(D) Pos [facility] Antibody Neg 12/14/2016 UNIVERSITY OF Screen 4:01 AM CDT [facility] Test Valid [facility] 12/14/2016 [facility] 1:[address] [facility] BANK w Hospital Specimen 12/17/2016 12/14/2016 UNIVERSITY OF Expires 1:05 AM CDT [facility] Specimen Anatomical Collection Method Collection Time Receive d Time (Source) Location / / Volume Laterality Blood specimen 12/14/2016 12:28 7 (specimen) AM CDT 12:29 AM CDT Nalini Eli MD LAB - BLOOD BANK TEST ORDER Performing Organization Address City/State/ZIP Code Phon e Number [facility] [address] [place] [address] [facility] Hepatitis B Surface Antibody (12/13/2016 9:42 PM CDT) P athologist Signature Hepatitis B 0.21 <8.00 12/16/2016 UNIVERSITY [facility] m[IU]/mL 11:39 AM CDT [facility] Comment: Nonreactive, No antibody detect ed when the value is less than 8.00 m[IU]/mL. Specimen Anatomical Collection Method Collection Time Receive d Time (Source) Location / / Volume Laterality Blood specimen 12/13/2016 9:42 PM 017 9:43 (specimen) CDT PM CDT Erum Manzanares MD LAB - BLOOD ORDERABLES Performing Organization Address City/[facility]/ZIP Code Phon e Number [address] Hepatitis A Antibody IgG (12/13/2016 9:42 PM CDT) [facility] Method Time Signature Hepatitis A Nonreactive NR^Nonrea 12/16/2016 UNIVERSITY OF Antibody IgG ctive 11:39 AM CDT [facility] Comment: This assay cannot be used for t he diagnosis of acute HAV infection. Specimen Anatomical Collection Method Collection Time Receive d Time (Source) Location / / Volume Laterality Blood specimen 12/13/2016 9:42 PM 017 9:43 (specimen) CDT PM CDT Erum Manzanares MD LAB - BLOOD ORDERABLES Performing Organization Address City/[facility]/ZIP Code Phon e Number [address] Hepatitis B core antibody (12/13/2016 9:42 PM CDT) [facility] Method Time Signature Hepatitis B Nonreactive NR^Nonrea 12/16/2016 UNIVERSITY OF Core Maricruz ctive 11:39 AM CDT [facility] Specimen Anatomical Collection Method Collection Time Receive d Time (Source) Location / / Volume Laterality Blood specimen 12/13/2016 9:42 PM 017 9:43 (specimen) CDT PM CDT Erum Manzanares MD LAB - BLOOD ORDERABLES Performing Organization Address City/[facility]/ZIP Code Phon e Number [address] MR (12/13/2016 2:33 PM CDT) Anatomical [...] 2. Oligohydramnios. ZARINA THOMAS MD Nora Mohamud [facility] MRI ORDERABLES Maternal US OB Limited Single/Multiple [...] DEANN KING Study Date: 7:48am Pat. NO: [id number] Referring ??: CHRIST LOZADA Site: [facility] Video Clerk: Jay Lu : 1980 Age: 36 INDICATION Premature Rupture of Membranes ( PPROM), Complete Previa. METHOD [facility] ANTEPARTUM inpatient exam, Transabd ominal and [...] the end of the ultrasound. Please see [facility] for further documentation regarding plan of care. If you have questions regarding today's evaluation or if we can be of further service, please contact the [facility]. anomalies may be present but not detected. Procedure Note CrossNora MD - 12/12/2016For matting of this note might be different from the original. Cx TV Pat. Name:Elizabeth KING Date:12/12 7:48am Pat. NO: [id number] :CHRIST BHAT ON [facility]:Yesenia Sen RDMS :1980Age:36 INDICATION Premature Rupture of Membranes ( PPROM), Complete Previa. METHOD [facility] ANTEPARTUM inpatient exam, Transabd ominal and [...] placental-myometrial interface appears normal. Nora Munguia Cade [facility] US ORDERABLES ABO/Rh type and screen (12/11/2016 9:05 AM CDT) [facility] Method Time Signature ABO B 12/11/2016 UNIVERSITY OF 10:14 AM CDT [facility] RH(D) Pos [facility] Antibody Neg 12/11/2016 UNIVERSITY OF Screen 10:14 AM CDT [facility] Test Valid [facility] 12/11/2016 [facility] [place] 9:[address] [facility] BANK w Hospital Specimen 12/14/2016 12/11/2016 UNIVERSITY OF Expires 9:21 AM CDT [facility] Specimen Anatomical Collection Method Collection Time Receive d Time (Source) Location / / Volume Laterality Blood specimen 12/11/2016 9:05 AM 017 9:06 (specimen) CDT AM CDT Nalini Eli MD LAB - BLOOD BANK TEST ORDER Performing Organization Address City/State/ZIP Code Phon e Number [facility] [address] [place] [address] [facility] Echocardiogram Complete (12/10/2016 9:05 AM CDT) Anatomical Region Laterality Modality Echocardiography Specimen (Source) Anatomical Collection Method Collection Time Re ceived Time Location / / Volume Laterality 12/10/2016 8:00 AM CDT Narrative 12/10/2016 9:23 AM CDT [id number]^CROSS^NORA^VINCE ?Study ID: [id number] ?[facility] ?[facility] ?[address] ?[place] [address] ? Echocardiogram __ Name: DEANN KING Study Date: 12/10/2016 08:00 AM ? [facility] Gender: Female ?Patient Class: Inpatient : 1980 ? Age: 36 yrs Ordering Provider: NORA MOHAMUD Performed By: Krys Servin RDCS Reading Physician: Brice Lloyd MD Reason For Study: Other, Please Specify in Comments Data: Number of fetuses: This is a espinoza gestation. Due date: 03/07/2017. Gestational age: 27w4d. Deanna very at: [place]. Specific Indication: echocar diogram performed for family [...] the left atriu m. There is laminar [id number] shunting across the foramen ovale. Atrioventricular valves: [...] Procedure Note Brice Lloyd MD - [phone] [id number]^CADE^NORA^VINCE Study ID: [id number] [facility] [address] [address] Echocardiogram __ Name: DEANN KING Study Date: 12/10/2016 08:00 AM [facility] Gender: Female Patient Class: Inpatient : 1980 Age: 36 yrs Ordering Provider: NORA MOHAMUD Performed By: Krys Servin RDCS Reading Physician: Brice Lloyd MD Reason For Study: Other, Please Specify in Comments Data: Number of fetuses: This is a espinoza gestation. Due date: 03/07/2017. Gestational age: 27w4d. Deli very at: [place]. Specific Indication: echocar diogram performed for family [...] the left atriu m. There is laminar [id number] shunting across the foramen ovale. Atrioventricular valves: [...] DEANN KING Study Date: 9:10am Pat. NO: [id number] Referring ??: CHRIST LOZADA Site: [facility] Video Clerk: Jay Lu : 1980 Age: 36 INDICATION Premature Rupture of Membranes ( PPROM) Complete previa. METHOD Transabdominal ultrasound examination, [facility] inpatient exam. View: [...] 2 lb 1 ?oz Calculated by ?Hadlock ([id number]) Head / Face / Neck Biometry: Creative Arts Therapist ?3.9 ?mm ? Amniotic Fluid / FHR: [...] Pat. Name:Elizabeth KING Date:12/08 9:10am Pat. NO: [id number] MD:CHRIST BHAT ON [facility]Yesenia Sen RDMS :1980Age:36 INDICATION Premature Rupture of Membranes ( PPROM) Complete previa. METHOD Transabdominal ultrasound examination, [facility] inpatient exam. View: [...] 2 lb 1 oz Calculated by Hadlock ([id number]) Head / Face / Neck Biometry: Creative Arts Therapist 3.9 mm Amniotic Fluid / FHR: AF [...] Culture Aerobic Bacterial (12/07/2016 6:00 PM CDT) [facility] Signature Specimen Leg Wound INFECTIOUS [...] Code Phon e Number INFECTIOUS DISEASES [address] [place] [address] DIAGNOSTIC LABORATORY, [facility] INFECTIOUS DISEASE [address] [place] [address], [facility] DIAGNOSTIC LABORATORY Methicillin resistant staph aureus cult (12/07/2016 6:00 PM CDT) [facility] Method Time Signature Specimen Wound [facility] B[facility] Special Specimen 12/07/2016 [facility] Requests collected in 7:06 PM CDT [facility] (white cap) Culture Micro Canceled, 12/07/2016 [facility] Test credited 8:13 PM CDT [facility] Culture Micro Test 12/07/2016 [facility] PM [facility] Specimen Anatomical Collection Method Collection Time Receive d Time (Source) Location / / Volume Laterality Specimen from 12/07/2016 6:00 PM 12/08/19 17 6:21 wound (specimen) CDT PM CDT Rossana Barker MD LAB - MICRO GENERAL ORDERABL ES Performing Organization Address City/Special Care [facility]/ZIP Code Phon e Number [facility] [address] [place] [address] EMDEN TSH with free T4 reflex (12/07/2016 3:43 PM CDT) P athologist Signature TSH 3.09 0.40 - 4.00 12/09/2016 [facility] mU/L 5:39 PM CDT [facility] Specimen Anatomical Collection Method Collection Time Receive d Time (Source) Location / / Volume Laterality 12/07/2016 3:43 PM 7 3:44 CDT PM CDT Nora Leyva MD LAB - BLOOD ORDERABLES Performing Organization Address City/[facility] Care [facility]/ZIP Code Phon e Number [facility] [address] [place] [address] [facility] Rubella Antibody IgG Quantitative (12/07/2016 3:43 PM CDT) Analysis Performed At Patho logist Time Signature Rubella Antibody 7 IU/mL 12/09/2016 [facility] IgG Quantitative 11:02 AM CDT [facility] Comment: Negative Reference Range: ??Unvaccinated Negative 0-7 IU/mL Vaccinated or previous exposure Positive 10 IU/ml or greater Specimen Anatomical Collection Method Collection Time Receive d Time (Source) Location / / Volume Laterality 12/07/2016 3:43 PM 7 3:44 CDT PM CDT Nora Leyva MD LAB - BLOOD ORDERABLES Performing Organization Address City/[facility] Care [facility]/ZIP Code Phon e Number [facility] [address] [place] [address] [facility] (ABNORMAL) Hepatitis C RNA quantitative (12/07/2016 3:43 PM CDT) Patholo gist Method Time Signature HCV RNA Quant [id number] HCVND^HCV 12/09/2016 [facility] IU/ml (A) RNA Not 12:19 PM CDT [facility] EAST [IU]/mL BANK Comment: The LEONARDO AmpliPrep/LEONARDO [...] (H) <1.2 Log IU/mL 12/09/2016 12:19 PM [facility] Qt [facility] BANK Specimen Anatomical Collection Method Collection Time Receive d Time (Source) Location / / Volume Laterality Blood specimen 12/07/2016 3:43 PM 017 3:44 (specimen) CDT PM CDT Nora Leyva MD LAB - BLOOD ORDERABLES Performing Organization Address City/State/ZIP Code Phon e Number [facility] [address] [place], [place] [phone] [place] [address] hemoglobin stain Kleihauer (12/07/2016 3:43 PM CDT) [facility]ist Method Time Signature Kleihauer-Bet No cells seen 12/07/2016 UNIVE RS[facility] OF ke Rhogam not required 7:[address] MEDIC AL Patient Rh positive [facility] Test performed at [facility] [place] BANK Specimen Anatomical Collection Method Collection Time Receive d Time (Source) Location / / Volume Laterality Blood specimen 12/07/2016 3:43 PM 017 3:45 (specimen) CDT PM CDT Nora Leyva MD LAB - BLOOD BANK TEST ORDER Performing Organization Address City/State/ZIP Code Phon e Number [facility] [address] [place] [address] [facility] Fibrinogen activity (12/07/2016 3:43 PM CDT) P athologist Signature Fibrinogen 362 200 - 420 12/07/2016 [facility] mg/dL 5:44 PM CDT [facility] Specimen Anatomical Collection Method Collection Time Receive d Time (Source) Location / / Volume Laterality Blood specimen 12/07/2016 3:43 PM 017 3:44 (specimen) CDT PM CDT Nora Leyva MD LAB - BLOOD ORDERABLES Performing Organization Address City/[facility]/ZIP Code Phon e Number [address] [address] [facility] Partial thromboplastin time (12/07/2016 3:43 PM CDT) P athologist Signature PTT 27 22 - 37 sec 12/07/2016 [facility] 5:44 PM CDT [facility] Specimen Anatomical Collection Method Collection Time Receive d Time (Source) Location / / Volume Laterality Blood specimen 12/07/2016 3:43 PM 017 3:44 (specimen) CDT PM CDT Nora Leyva MD LAB - BLOOD ORDERABLES Performing Organization Address City/[facility]/ZIP Code Phon e Number [address] [address] [facility] INR (12/07/2016 3:43 PM CDT) P athologist Signature INR 1.06 0.86 - 1.14 12/07/2016 [facility] 5:44 PM T [facility] Specimen Anatomical Collection Method Collection Time Receive d Time (Source) Location / / Volume Laterality Blood specimen 12/07/2016 3:43 PM 017 3:44 (specimen) CDT PM CDT Nora Leyva MD LAB - BLOOD ORDERABLES Performing Organization Address City/[facility]/ZIP Code Phon e Number [address] [address] [facility] (ABNORMAL) Comprehensive metabolic panel (12/07/2016 3:43 PM CDT) P athologist Signature Sodium 141 133 - 144 12/07/2016 [facility] mmol/L 4:08 PM CDT [facility] Potassium 3.4 3.4 - 5.3 12/07/2016 [facility] mmol/L 4:08 PM CDT [facility] Chloride 108 94 - 109 12/07/2016 [facility] mmol/L 4:08 PM [facility] Carbon Dioxide 21 20 - 32 12/07/2016 [facility] mmol/L 4:08 PM [facility] Anion Gap 12 3 - 14 12/07/2016 [facility] mmol/L 4:08 PM [facility] Glucose 88 70 - 99 12/07/2016 [facility] mg/dL 4:08 PM [facility] Urea Nitrogen 6 (L) 7 - 30 12/07/2016 [facility] mg/dL 4:08 PM [facility] Creatinine 0.55 0.52 - 12/07/2016 [facility] 1.04 mg/dL 4:08 PM [facility] GFR Estimate >90 >60 12/07/2016 [facility] mL/min/1.7 4:[address] Comment: Non GFR Calc GFR Estimate If >90 >60 mL/min/1.7m2 12/07/2016 4:08 P M [facility] Black [facility] Comment: GFR Calc Calcium 8.1 (L) 8.5 - 10.1 12/07/2016 4:08 PM [facility] mg/dL [facility] Bilirubin Total 0.4 0.2 - 1.3 12/07/2016 4:08 PM UNIVE RSITY [facility] mg/dL [facility] Albumin 2.5 (L) 3.4 - 5.0 g/dL 12/07/2016 4:08 PM [facility] Protein Total 6.1 (L) 6.8 - 8.8 g/dL 12/07/2016 4:08 PM [facility] Alkaline Phosphatase 69 40 - 150 U/L 12/07/2016 4:08 PM [facility] ALT 26 0 - 50 U/L 12/07/2016 4:08 PM [facility] AST 21 0 - 45 U/L 12/07/2016 4:08 PM [facility] Specimen Anatomical Collection Method Collection Time Receive d Time (Source) Location / / Volume Laterality Blood specimen 12/07/2016 3:43 PM 017 3:44 (specimen) CDT PM CDT Nora Leyva MD LAB - BLOOD ORDERABLES Performing Organization Address City/State/ZIP Code Phon e Number [facility] [address] [place] [address] [facility] Urine Culture Aerobic Bacterial (12/07/2016 2:55 PM CDT) Component Value Ref Test Analysis Performed At [facility] Range Method Time Signature Specimen Unspecified Urine INFECTIOUS Description DISEASE DIAGNOSTIC LABORATORY Special Specimen received 12/07/2016 [facility] in preservative 7:19 PM CDT [facility] Culture Micro >100,000 colonies/mL 12/08/2016 INFE CTIOUS mixed urogenital evelina 8:55 PM CDT DISEA SE Susceptibility testing not routinely done DIAGNOSTIC LABORATORY Specimen (Source) Anatomical Collection Method Collection Time Re ceived Time Location / / Volume Laterality Unspecified Urine 12/07/2016 2:55 017 3:51 PM CDT PM CDT Nora Leyva MD LAB - MICRO GENERAL ORDERABL ES Performing Organization Address City/Special Care Hospital/ZIP Code Phon e Number INFECTIOUS DISEASES [address] [place] [address] DIAGNOSTIC LABORATORY, [facility] INFECTIOUS DISEASE [address] DIAGNOSTIC LABORATORY [id number] [place] [address] (ABNORMAL) UA reflex to Microscopic and Culture (12/07/2016 2:55 PM CDT) [facility] Method Time Signature Color Urine Yellow 12/07/2016 [facility] 3:37 PM CDT [facility] Appearance Urine Clear 12/07/2016 [facility] 3:37 PM CDT [facility] Glucose Urine Negative NEG^Negat 12/07/2016 [facility] paula mg/dL 3:37 PM CDT [facility] Bilirubin Urine Negative NEG^Negat 12/07/2016 [facility] paula 3:37 PM CDT [facility] Ketones Urine Negative NEG^Negat 12/07/2016 [facility] [place] mg/dL 3:37 PM CDT [facility] Specific [facility] 1.015 1.003 - 12/07/2016 [facility] Urine 1.035 3:37 PM CDT [facility] Blood Urine Negative NEG^Negat 12/07/2016 [facility] [place]ula 3:37 PM CDT [facility] pH Urine 6.5 5.0 - 7.0 12/07/2016 [facility] pH 3:37 PM T [facility] Protein Albumin 10 (A) NEG^Negat 12/07/2016 [facility] Urine paula mg/dL 3:37 PM T [facility] Urobilinogen Normal 0.0 - 2.0 12/07/2016 [facility] mg/dL mg/dL 3:37 PM T [facility] Nitrite Urine Negative NEG^Negat 12/07/2016 [facility] [place]ula 3:37 PM T [facility] Leukocyte Moderate (A) NEG^Negat 12/07/2016 [facility] Esterase Urine paula 3:37 PM [facility] Source Midstream 12/07/2016 [facility] Urine 3:23 PM [facility] RBC Urine 1 0 - 2 12/07/2016 [facility] M /HPF 3:49 PM [facility] WBC Urine 7 (H) 0 - 2 12/07/2016 [facility] /HPF 3:49 PM [facility] Bacteria Urine Few (A) NEG^Negat 12/07/2016 [facility] paula /HPF 3:49 PM [facility] Squamous 1 0 - 1 12/07/2016 [facility] Epithelial /HPF /HPF 3:49 PM [facility] Mucous Urine Present (A) NEG^Negat 12/07/2016 [facility] paula /LPF 3:49 PM [facility] Specimen (Source) Anatomical Collection Method Collection Time Re ceived Time Location / / Volume Laterality Examination of URINE SPECIMEN 12/07/2016 2:55 12/08/19 17 3:22 midstream urine OBTAINED BY CLEAN PM CDT PM T specimen CATCH PROCEDURE / (procedure) Unknown Nora Leyva MD LAB - URINE ORDERABLES Performing Organization Address City/State/ZIP Code Phon e Number U OF [facility] [address] [place] [address] [facility] U OF M [facility] Drug abuse scrn 7 UR (/) (RH, SH, UR) (12/07/2016 2:55 PM CDT) [facility] Method Time Signature Amphetamine Qual Negative NEG^Negat 12/07/2016 [facility] O F Urine paula 3:48 PM CDT [facility] Comment: Cutoff for a negative amphetami ne is 500 ng/mL or less. Cannabinoids Qual Negative NEG^Negative 12/07/2016 3:48 PM [facility] Urine [facility] Comment: Cutoff for a negative cannabino id is 50 ng/mL or less. Cocaine Qual Urine Negative NEG^Negative 12/07/2016 3:48 PM [facility] Comment: Cutoff for a negative cocaine i s 300 ng/mL or less. Opiates Qualitative Negative NEG^Negative 12/07/2016 3:48 P M [facility] Urine [facility] Comment: Cutoff for a negative opiate is [...] Code Phon e Number [facility] [address] [place] [address] [facility] Chlamydia trachomatis PCR (12/07/2016 2:54 PM CDT) [facility] Method Time Signature Specimen Vagina 12/07/2016 [facility] Description 3:13 PM CDT [facility] Chlamydia Negative NEG^Negat 12/08/2016 [facility] Trachomatis PCR paula 1:55 PM CDT [facility] Comment: Negative for C. trachomatis rRNA by prescott scription mediated amplification. A negative result by flow manager media kris amplification does not preclude the [...] ORDERABL ES Performing Organization Address [facility] Phon e Number [id number] [place] [address] Neisseria gonorrhoeae PCR (12/07/2016 2:54 PM CDT) Analysis Performed At Patho logist Time Signature Specimen Vagina 12/07/2016 [facility] OF Descrip 3:13 PM CDT [facility] N Gonorrhea Negative NEG^Negati 12/08/2016 UNIVERSITY PCR ve 1:55 PM CDT [facility] Comment: Negative for N. gonorrhoeae rRNA by prescott scription mediated amplification. A negative result by flow manager media kris amplification does not preclude the [...] ORDERABL ES Performing Organization Address [facility] Code Phon e Number [phone] [place] [address] Wet prep (12/07/2016 2:54 PM CDT) Component Value Ref Test Analysis Performed At Patholo gist Range Method Time Signature Specimen Vagina [facility] Description [facility] Wet Prep No Trichomonas 12/07/2016 [facility] seen 3:34 PM CDT [facility] Wet Prep No yeast seen 12/07/2016 [facility] 3:34 PM CDT [facility] Wet Prep Moderate 12/07/2016 [facility] PMNs seen 3:34 PM CDT [facility] Wet Prep No clue cells 12/07/2016 [facility] seen 3:34 PM CDT [facility] Specimen Anatomical Collection Method Collection Time Receive d Time (Source) Location / / Volume Laterality Specimen from 12/07/2016 2:54 PM 12/08/19 17 3:10 vagina CDT PM CDT (specimen) Nora Leyva MD LAB - MICRO GENERAL ORDERABL ES Performing Organization Address City/[facility] Care [facility]/ZIP Code Phon e Number [address] [address] [facility] (ABNORMAL) Group B strep PCR (12/07/2016 2:54 PM CDT) [facility] gist Method Time Signature Group B Strep Vaginal 12/07/2016 [facility] PCR Spec Valdemar Rectal 2:58 PM CDT [facility] Group B Strep Positive (A) NEG^Negat 12/08/2016 [facility]ITY O F PCR paula 1:27 PM CDT [facility] Comment: Positive: GBS DNA detected, presumed pos itive for GBS. Assay performed on incubated broth cultu re of specimen using Zesty real-time PCR. Specimen Anatomical Collection Method Collection Time Receive d Time (Source) Location / / Volume Laterality Vaginal Rectal 12/07/2016 2:54 PM 017 3:14 CDT PM CDT Nora Leyva MD LAB - MICRO GENERAL ORDERABL ES Performing Organization Address City/[facility] Care Hospital/ZIP Code Phon e Number [facility] [address] [place], [place] [phone] [place] [address] [facility] ABO/Rh type and screen (12/07/2016 2:41 PM CDT) [facility] Method Time Signature ABO B 12/07/2016 [facility] OF 6:08 PM CDT [facility] RH(D) Pos [facility] Antibody Neg 12/07/2016 [facility] Screen 6:08 PM CDT [facility] Test Valid University 12/07/2016 [facility] 5:[address] [facility] [facility] Specimen 12/10/2016 12/07/2016 [facility] OF Expires 5:31 PM CDT [facility] Specimen Anatomical Collection Method Collection Time Receive d Time (Source) Location / / Volume Laterality Blood specimen 12/07/2016 2:41 PM 017 2:44 (specimen) CDT PM CDT Rossana Barker MD LAB - BLOOD BANK TEST ORDER Performing Organization Address City/[facility] Phon e Number [address] [address] [facility] (ABNORMAL) CBC with platelets (12/07/2016 2:41 PM CDT) [facility] Method Time Signature WBC 8.4 4.0 - 11.0 12/07/2016 [facility] OF 10e9/L 2:47 PM CDT [facility] RBC Count 3.10 (L) 3.8 - 5.2 12/07/2016 [facility] OF 10e12/L 2:47 PM CDT [facility] Hemoglobin 9.4 (L) 11.7 - 12/07/2016 [facility] 15.7 g/dL 2:47 PM CDT [facility] Hematocrit 28.2 (L) 35.0 - 12/07/2016 [facility] 47.0 % 2:47 PM CDT [facility] MCV 91 78 - 100 12/07/2016 [facility] OF fl 2:47 PM CDT [facility] MCH 30.3 26.5 - 12/07/2016 [facility] OF 33.0 pg 2:47 PM CDT [facility] MCHC 33.3 31.5 - 12/07/2016 [facility] 36.5 g/dL 2:47 PM CDT [facility] RDW 17.1 (H) 10.0 - 12/07/2016 [facility] 15.0 % 2:47 PM CDT [facility] Platelet Count 185 150 - 450 12/07/2016 [facility] OF 10e9/L 2:47 PM CDT [facility] Specimen Anatomical Collection Method Collection Time Receive d Time (Source) Location / / Volume Laterality Blood specimen 12/07/2016 2:41 PM 017 2:42 (specimen) CDT PM CDT Rossana Barker MD LAB - BLOOD ORDERABLES Performing Organization Address City/[facility] Care [facility]/ZIP Code Phon e Number [address] [address] [facility] (ABNORMAL) Referral sensitivity (12/07/2016 1:27 PM CDT) Component Value Ref Test Analysis Performed At [facility] Range Method Time Signature Specimen Vaginal [...] Code Phon e Number INFECTIOUS DISEASES [address] [place] [address] DIAGNOSTIC LABORATORY, [facility] INFECTIOUS DISEASE [address] [place] [address], [facility] DIAGNOSTIC LABORATORY documented in this encounter [...] (TYLENOL) tablet 650 Given 12/24/2016 7:52 AM TAG WRITER 650 mg mg 650 mg, Oral, EVERY 6 HOURS PRN, mild pain, fever, Starting on 12/08/16 at 0223, Maximum acetaminophen dose from all sources = 75 mg/kg/day not to exceed 4 grams/day. Given 12/23/2016 8:03 AM TAG WRITER 650 mg Given 12/22/2016 7:05 PM TAG WRITER 650 mg acetaminophen (TYLENOL) tablet 975 mg Given 12/27/2016 12:40 PM TAG WRITER 975 mg 975 mg, Oral, EVERY 8 HOURS, First dose on Fri12/25/16 at 0000, For 3 days, Do not use if patient has an active opioid/acetaminophen analgesic order for pain Maximum acetaminophen dose from all sources = 75 mg/kg/day not to exceed 4 grams/day., Post-procedure Given 12/27/2016 2:07 AM TAG WRITER 975 mg Given 12/26/2016 6:00 PM TAG WRITER 975 mg amoxicillin (AMOXIL) capsule 250 mg [...] mg bacitracin ointment Given 12/27/2016 8:12 AM TAG WRITER Topical, 3 TIMES DAILY, First dose on 12/22/16 at 1400, Apply to areas of picking. Given 12/25/2016 1:01 PM TAG WRITER Given 12/24/2016 7:56 AM TAG WRITER benzocaine (ORAJEL MAXIMUM STRENGTH) 20 % gel Given 12/24/2016 9:19 AM TAG WRITER Mouth/Throat, 4 TIMES DAILY PRN, moderate pain, [...] Suppository 10 mg Given 12/25/2016 9:53 PM TAG WRITER 10 mg 10 mg, Rectal, DAILY PRN, constipation, Starting on Fri12/25/16 at 2148, Start POD 2, Post-procedure buprenorphine (SUBUTEX) sublingual table t 2 mg Given 12/27/2016 8:10 AM TAG WRITER 2 mg 2 mg, Sublingual, 5 TIMES DAILY, First dose on Fri12/07/16 at 1545 Given 12/27/2016 4:06 AM TAG WRITER 2 mg Given 12/26/2016 10:38 PM TAG WRITER 2 mg buPROPion (WELLBUTRIN SR) 12 hr tablet 1 50 mg Given 12/27/2016 8:10 AM TAG WRITER 150 mg 150 mg, Oral, DAILY, First dose on Fri12/17/16 at 0800, DO NOT CRUSH. Given 12/26/2016 8:23 AM TAG WRITER 150 mg Given 12/25/2016 7:52 AM TAG WRITER 150 mg carbamide peroxide (DEBROX) 6.5 % otic Given 12/23/2016 8:16 PM TAG WRITER 3 drops solution 3 drop 3 drop, Right Ear, 2 TIMES DAILY, First dose on Fri12/17/16 at 2000 Given 12/23/2016 8:49 AM TAG WRITER 3 drops Given 12/22/2016 7:52 PM TAG WRITER 3 drops clindamycin (CLEOCIN) infusion 900 New Bag 12/25/2016 1:32 PM TAG WRITER 900 mg 50 mL/hr mg Routine, 900 mg, Intravenous, EVERY 8 HOURS, First dose on Fri12/25/16 at 0430, For 24 hours, Indications: Perioperative Pharmacoprophylaxis New Bag 12/25/2016 6:19 AM TAG WRITER 900 mg 50 mL/hr cyclobenzaprine (FLEXERIL) tablet 10 mg Given 12/23/2016 10:10 PM TAG WRITER 10 mg 10 mg, Oral, AT BEDTIME PRN, muscle spasms, Starting on Fri12/09/16 at 2342 Given 12/22/2016 11:17 PM TAG WRITER 10 mg Given 12/21/2016 10:15 PM CDT 10 mg diphenhydrAMINE (BENADRYL) capsule 25 mg Given 12/25/2016 7:23 PM TAG WRITER 25 mg 25 mg, Oral, EVERY 6 [...] emollient (VANICREAM) cream Given 12/24/2016 9:19 AM TAG WRITER Topical, EVERY 2 HOURS PRN, other, area of dry skin, Starting on Fri12/15/16 at 1239, Apply to areas of dry skin fentaNYL (PF) (SUBLIMAZE) injection 50 m cg Given 12/25/2016 1:03 AM TAG WRITER 50 mcg 50 mcg, Intravenous, EVERY 2 [...] 100 mcg., PACU Given 12/25/2016 12:48 AM TAG WRITER 50 mcg Given 12/25/2016 12:26 AM TAG WRITER 50 mcg fluconazole (DIFLUCAN) tablet 150 mg Given 12/24/2016 7:49 AM TAG WRITER 150 mg Routine, 150 mg, Oral, ONCE, On Fri12/24/16 at 0800, For 1 dose, Indications: Candidiasis gentamicin (GARAMYCIN) 120 mg in NaCl 0.9 % New Bag 09/2016 8:34 PM TAG WRITER 120 mg 100 mL intermittent infusion Routine, 120 mg, Intravenous, EVERY 8 HOURS, First dose on Fri12/25/16 at 0500, For 24 hours, Indications: Perioperative Pharmacoprophylaxis New Bag 12/25/2016 12:18 PM TAG WRITER 120 mg New Bag 12/25/2016 5:01 AM TAG WRITER 120 mg hydrocortisone (CORTAID) 1 % cream Given 12/27/2016 8:12 AM TAG WRITER Topical, 2 TIMES DAILY, First dose on Fri12/17/16 at 2115, Apply to upper arms and left abdomen Given 12/25/2016 8:09 AM TAG WRITER Given 12/23/2016 8:48 AM TAG WRITER Left Arm HYDROmorphone (DILAUDID) Loading Dose Given 12/25/2016 3:[address] 0.2 mg administered from DRYWALL CARRIER 0.2-0.3 mg 0.2-0.3 mg, Intravenous, DRYWALL CARRIER LOADING DOSE, On Fri12/25/16 at 0000, For 1 dose, LOADING DOSE (bolus) with start of DRYWALL CARRIER. DO NOT GIVE IF A LOADING BOLUS DOSE HAS ALREADY BEEN GIVEN. (If loading dose not given from DRYWALL CARRIER, bar code scan must be overridden to chart dose)., Post-procedure HYDROmorphone (DILAUDID) DRYWALL CARRIER 1 New Syringe/Cartridge 12/25/2016 1:00 AM TAG WRITER mg/mL DRYWALL CARRIER dose (mg): 0.2, Max DRYWALL CARRIER dose (mg): 0.3, Lockout Interval (min): 10 minutes, DRYWALL CARRIER Continuous Rate (mg/hr): CONTINUOUS RATE IS NOT RECOMMENDED FOR OPIOID NAIVE PATIENTS, Hour Limit (mg): 1.8, First dose on Fri12/25/16 at 0000, Do NOT give any additional opioids while on DRYWALL CARRIER. When transitioning from DRYWALL CARRIER to oral opioids MAY give first oral opioid dose 30 minutes PRIOR to discontinuation of DRYWALL CARRIER., Intravenous, Post-procedure HYDROmorphone (DILAUDID) DRYWALL CARRIER 1 mg/mL Shift Total 12/25/2016 6:24 AM TAG WRITER DRYWALL CARRIER dose (mg): 0.2, Max DRYWALL CARRIER dose (mg): 0.3, Lockout Interval (min): 10 minutes, DRYWALL CARRIER Continuous Rate (mg/hr): CONTINUOUS RATE IS NOT RECOMMENDED FOR OPIOID NAIVE PATIENTS, Hour Limit (mg): 2, First dose (after last modification) on Fri12/25/16 at 0430, Do NOT give any additional opioids while on DRYWALL CARRIER. When transitioning from DRYWALL CARRIER to oral opioids MAY give first oral opioid dose 30 minutes PRIOR to discontinuation of DRYWALL CARRIER., Intravenous, Post-procedure Rate/Dose Verify 12/25/2016 4:54 AM TAG WRITER 0.3 mg HYDROmorphone (DILAUDID) DRYWALL CARRIER 1 mg/mL Rate/Dose Verify 12/25/2016 9:01 AM TAG WRITER DRYWALL CARRIER dose (mg): 0.3, Max DRYWALL CARRIER dose (mg): 0.5, Lockout Interval (min): 10 minutes, DRYWALL CARRIER Continuous Rate (mg/hr): 0.3, MAX Continuous Rate (mg/hr): 0.3, Hour Limit (mg): 3.3, First dose on Fri12/25/16 at 0845, Do NOT give additional opioids orders unless requested by provider., Intravenous HYDROmorphone (PF) (DILAUDID) injection Given 12/26/2016 8:34 AM TAG WRITER 0.3 mg 0.2-0.3 mg 0.2-0.3 mg, Intravenous, EVERY 1 HOUR PRN, moderate to severe pain, Starting on Zoe 12/26/16 at 0407, Give IV Push undiluted up to 4 mg. Each 2mg over 2-5 minutes. Given 12/26/2016 6:57 AM TAG WRITER 0.3 mg Given 12/26/2016 5:07 AM TAG WRITER 0.3 mg HYDROmorphone (PF) (DILAUDID) injection Given 12/26/2016 1:52 AM TAG WRITER 0.5 mg 0.3-0.5 mg 0.3-0.5 mg, Intravenous, EVERY 1 HOUR PRN, moderate to severe pain, Starting on Fri12/25/16 at 1559, Give IV Push undiluted up to 4 mg. Each 2mg over 2-5 minutes. Given 12/26/2016 12:31 AM TAG WRITER 0.5 mg Given 12/25/2016 10:34 PM TAG WRITER 0.5 mg HYDROmorphone (PF) (DILAUDID) injection 0.5 Given 12/25/2016 2:30 AM TAG WRITER 0.5 mg mg 0.5 mg, Intravenous, EVERY [...] minutes., PACU/Phase II Given 12/25/2016 1:56 AM TAG WRITER 0.5 mg Given 12/25/2016 1:31 AM TAG WRITER 0.5 mg hydrOXYzine (ATARAX) tablet 50 mg Given 12/08/2016 3:19 AM CDT 50 mg 50 mg, Oral, ONCE, On 12/08/16 at 0315, For 1 dose ibuprofen (ADVIL/MOTRIN) tablet 600 mg Given 12/27/2016 9:24 AM TAG WRITER 600 mg 600 mg, Oral, EVERY 6 HOURS RT, First dose (after last modification) on Zoe 12/26/16 at 0800, Ibuprofen to start after toradol finishes Given 12/27/2016 3:07 AM TAG WRITER 600 mg Given 12/26/2016 9:01 PM TAG WRITER 600 mg indomethacin (INDOCIN) capsule 25 mg [...] injection 30 mg Given 12/26/2016 2:29 AM TAG WRITER 30 mg 30 mg, Intravenous, EVERY 6 HOURS PRN, moderate to severe pain, Starting on Fri12/25/16 at 0826, For 24 hours, For ordered doses up to 30 mg, give IV Push undiluted over 2 minutes. Given 12/25/2016 8:23 PM TAG WRITER 30 mg Given 12/25/2016 2:04 PM TAG WRITER 30 mg lactated ringers BOLUS 1,000 mL New Bag 12/24/2016 6:45 PM TAG WRITER 1,000 mLs Intravenous, 1,000 mL, ONCE, On Tu12/24/16 at 1900, For 1 dose, Prior to surgery. IF preeclamptic give only 500 mL, Pre-procedure lactated ringers infusion Rate/Dose Verify 12/07/2016 11:20 PM CDT 50 mL/hr at 50 mL/hr, Intravenous, CONTINUOUS, Starting on 12/07/16 at 1515, Until 12/09/16 at 1712 lactated ringers infusion New Bag 12/25/2016 5:40 PM TAG WRITER 125 mL/hr at 125 mL/hr, Intravenous, CONTINUOUS, Starting on Fri12/25/16 at 0430, Until Zoe 12/26/16 at 0911 New Bag 12/25/2016 6:18 AM TAG WRITER 125 mL/hr Rate/Dose Change 12/25/2016 5:06 AM TAG WRITER 125 mL/hr levothyroxine (SYNTHROID/LEVOTHROID) tablet Given 11/18 7:46 AM CDT 125 mcg 125 mcg 125 mcg, Oral, DAILY, First dose on 12/08/16 at 0800, Separate oral administration of iron- or calcium-containing products and levothyroxine by at least 4 hours. Given 12/09/2016 10:11 AM CDT 125 mcg Given 12/08/2016 8:01 AM CDT 125 mcg levothyroxine (SYNTHROID/LEVOTHROID) tablet Given 12/18 8:10 AM TAG WRITER 150 mcg 150 mcg 150 mcg, Oral, DAILY, First dose (after last modification) on Fri12/11/16 at 0800, Separate oral administration of iron- or calcium-containing products and levothyroxine by at least 4 hours. Given 12/26/2016 8:24 AM TAG WRITER 150 mcg Given 12/25/2016 7:52 AM TAG WRITER 150 mcg lidocaine (LMX4) 4 % kit Given by Other 12/25/2016 8:34 PM TAG WRITER Starting on Fri12/25/16 at 1930, For 1 dose, Maria Antonia Hidalgo : cabinet override magic mouthwash suspension (diphenhydramine, lidocaine , aluminum-magnesium & simethicone) 10 mL, Swish & Swallow, EVERY 6 HOURS NE N, mouth sores, Starting on 12/24/16 at [...] NS intermittent Given 12/24/2016 7:15 P M TAG WRITER 6 g infusion (cmpd premix) 6 g, [...] injection 4 mg Given 12/22/2016 5:06 PM TAG WRITER 4 mg 4 mg, Intravenous, EVERY 6 [...] 10-15 m g Given 12/25/2016 1:18 PM TAG WRITER 15 mg 10-15 mg, Oral, EVERY 4 HOURS PRN, moderate to severe pain, Starting on Fri12/25/16 at 1246 oxyCODONE IR (ROXICODONE) tablet 15-20 m g Given 12/27/2016 12:40 PM TAG WRITER 20 mg 15-20 mg, Oral, EVERY 3 HOURS PRN, moderate to severe pain, Starting on Fri12/25/16 at 1645, Patient is an opioid tolerant patient and will require higher narcotic doses due to buprenorphine. Given 12/27/2016 9:24 AM TAG WRITER 20 mg Given 12/27/2016 6:21 AM TAG WRITER 20 mg potassium chloride (KLOR-CON) Packet 20- [...] iron per tablet Given 12/24 7:49 AM TAG WRITER 1 tablet 1 tablet 1 tablet, Oral, DAILY, First dose on Fri12/13/16 at 1300 Given 12/23/2016 8:48 AM TAG WRITER 1 tablet Given 12/22/2016 8:10 AM TAG WRITER 1 tablet senna-docusate (SENOKOT-S;PERICOLACE) Given 12/17/2016 8:05 [...] Fri12/17/16 at 2000 Given 12/23/2016 8:15 PM TAG WRITER 1 tablet Given 12/23/2016 8:48 AM TAG WRITER 1 tablet senna-docusate (SENOKOT-S;PERICOLACE) Given 12/27/2016 8:10 [...] to opioids., Post-procedure Given 12/26/2016 9:01 PM TAG WRITER 2 tablets Given 12/26/2016 8:23 AM TAG WRITER 2 tablets simethicone (MYLICON) chewable tablet 80 mg Given 12/26/2016 1:54 PM TAG WRITER 80 mg 80 mg, Oral, 4 TIMES DAILY PRN, other, gas, Starting on Fri12/25/16 at 0352, Chew., Post-procedure Given 12/26/2016 6:36 AM TAG WRITER 80 mg Given 12/26/2016 12:31 AM TAG WRITER 80 mg sodium chloride (OCEAN) 0.65 % [...] flush 3 mL Given 12/24/2016 3:06 PM TAG WRITER 3 mLs 3 mL, Intracatheter, EVERY 8 HOURS, First dose on Fri12/07/16 at 1515, And Q1H PRN, to lock peripheral IV dormant line. Given 12/24/2016 6:16 AM TAG WRITER 3 mLs Given 12/23/2016 10:05 PM TAG WRITER 3 mLs sodium chloride (PF) 0.9% PF flush 3 mL Given 12/24/2016 6:52 PM TAG WRITER 3 mLs 3 mL, Intravenous, EVERY 8 HOURS, First dose on Fri12/24/16 at 1900, And Q1H PRN, to lock peripheral IV dormant line. , Pre-procedure sodium chloride (PF) 0.9% PF flush 3 mL Given 12/26/2016 6:58 AM TAG WRITER 3 mLs 3 mL, Intracatheter, EVERY 1 HOUR PRN, line flush, for peripheral IV flush post IV meds, Starting on Fri12/25/16 at 0352, Post-procedure Given 12/26/2016 5:07 AM TAG WRITER 3 mLs Given 12/26/2016 1:52 AM TAG WRITER 3 mLs sodium chloride (PF) 0.9% PF flush 3 mL Given 12/26/2016 2:29 AM TAG WRITER 3 mLs 3 mL, Intracatheter, EVERY 8 HOURS, First dose on Fri12/25/16 at 0400, And Q1H PRN, to lock peripheral IV dormant line., Post-procedure Given 12/25/2016 8:34 PM TAG WRITER 3 mLs Given 12/25/2016 12:12 PM TAG WRITER 3 mLs sodium citrate-citric acid (BICITRA) 500 -334 MG/5ML solution Starting on Fri12/24/16 at 1850, For 1 dose, Jon Joya : cabinet override sodium citrate-citric acid (BICITRA) solution Given 7:00 PM TAG WRITER 30 mLs 30 mL 30 mL, Oral, PRE-OP/PRE-PROCEDURE, Starting on Fri12/24/16 at 1848, For 1 dose, For gastric pH neutralization. GIVE WITHIN 45 minutes PRIOR TO SURGICAL PROCEDURE., Pre-procedure venlafaxine (EFFEXOR-ER) 24 hr tablet 15 0 mg Given 12/27/2016 8:10 AM TAG WRITER 150 mg 150 mg, Oral, DAILY WITH BREAKFAST, First dose (after last modification) on Fri12/09/16 at 0800, DO NOT CRUSH. Given 12/26/2016 8:23 AM TAG WRITER 150 mg Given 12/25/2016 11:12 AM TAG WRITER 150 mg venlafaxine (EFFEXOR-ER) 24 hr tablet 30 0 mg Given 12/08/2016 8:27 AM CDT 150 mg 300 mg, Oral, DAILY WITH BREAKFAST, First dose on Fri12/08/16 at 0800, DO NOT CRUSH. documented in this encounter Active and Recently Administered Medications Times are shown in TAG WRITER. Scheduled Medication Order 12/25/2016 12/26/2016 12/27/2016 acetaminophen [...] HYDROmorphone (DILAUDID) Loading Dose ad ministered from DRYWALL CARRIER 0.2-0.3 mg (COMPLETED) 335 (Given - Provider: Khloe Elmore, GENARO) 0.2-0.3 mg, Intravenous, DRYWALL CARRIER LOADING DOS E, Fri12/25/16 at 0000, For 1 dose, LOADING DOSE (bolus) with start of DRYWALL CARRIER. DO NOT GIVE IF A LOADING BOLUS DOSE HAS ALREADY BEEN GIVEN. (If loading dose not given from DRYWALL CARRIER, bar code scan must be overridden to chart dose)., Pos t-procedure HYDROmorphone (DILAUDID) DRYWALL CARRIER 1 mg/mL (CANCELED) 0100 ( New Syringe/Cartridge - Provider: Lisa Rubio, GENARO)0218 (Auto Hold - Provider: Orders Generic Provider - Reason: Transfer to a procedural area)0253 (Unhold - Provider: Marleny Kang MD) DRYWALL CARRIER dose (mg): 0.2, Max DRYWALL CARRIER dose (mg): 0 .3, Lockout Interval (min): 10 minutes, DRYWALL CARRIER Continuous Rate (mg/hr): CONTINUOUS RATE IS NOT RECOMMENDED FOR OPIOID NAIVE PATIENTS, Hour Limit (mg): 1.8, First dos e on Fri12/25/16 at 0000, Do NOT give an y additional opioids while on DRYWALL CARRIER. When transitioning from DRYWALL CARRIER to oral opioids MAY give first oral opioid dose 30 minutes PRIOR to discontinuation of DRYWALL CARRIER., Intravenous, Post-procedure HYDROmorphone (DILAUDID) DRYWALL CARRIER 1 mg/mL (CANCELED) 0454 ( Rate/Dose Verify - Provider: Khloe Elmore RN)0508 (Canceled Entry - Provider: Khloe Elmore RN)0624 (Shift Total - Provider: Khloe Elmore RN) DRYWALL CARRIER dose (mg): 0.2, Max DRYWALL CARRIER dose (mg): 0 .3, Lockout Interval (min): 10 minutes, DRYWALL CARRIER Continuous Rate (mg/hr): CONTINUOUS RATE IS NOT RECOMMENDED FOR OPIOID NAIVE PATIENTS, Hour Limit (mg): 2, First dose on Fri12/25/16 at 0430, Do NOT give any additional opioids while on DRYWALL CARRIER. When transitioning from DRYWALL CARRIER to oral opioids MAY give first oral opioid dose 30 minutes PRIOR to discontinuation of DRYWALL CARRIER., Intravenous, Post-procedure HYDROmorphone (DILAUDID) DRYWALL CARRIER 1 mg/mL (CANCELED) 0845 ( Canceled Entry - Provider: Fransisca Gates RN)0901 (Rate/Dose Verify - Provider: Fransisca Gates RN)1350 (Stopped - Provider: Maria Antonia Hidalgo RN) DRYWALL CARRIER dose (mg): 0.3, Max DRYWALL CARRIER dose (mg): 0 .5, Lockout Interval (min): 10 minutes, DRYWALL CARRIER Continuous Rate (mg/hr): 0.3, MAX Continuous Rate [...] RN) 0.2-0.3 mg, Intravenous, EVERY 1 HOUR NE N, Starting Zoe 12/26/16 at 0407, Until [...] RN) 0.3-0.5 mg, Intravenous, EVERY 1 HOUR NE N, Starting Fri12/25/16 at 1559, Until Zoe [...] mL, Swish & Swallow, EVERY 6 HOURS NE N, mouth sores, Starting Fri12/24/16 at 1014 [...] Provider: Hyacinth Wolf RN)1207 (Given - Provider: Hycainth Wolf RN)1507 (Given - Provider: Hyacinth Wolf [...]
Post-procedure documented in this encounter Care Teams V Belt Curer Relationship Specialty Start Date End Date Luis Fernando Magana PCP - General Family Practice 12/07/16 01/19/18 [place] [id number] documented as of this encounter
--- OUTSIDE RECORDS SUMMARY | 2021-12-05 19:25 | XMS_ITS | Encounter Summary ---
:1980 Author Organization [facility] Address [address] [place] [place] [address] Care Team Providers Name Role Phone Luis Fernando Magana Primary Care Provider Reason for Visit Auth/Cert Specialty Diagnoses / Procedures Referred By Contact Refer red To Contact manager secondary Diagnoses Maternity*JEAN MARIE: 03/07/2017 Rupture premature rupture of membranes (PPROM) delivered, current hospitalization [facility] [address] [place] [address] Phone: Referral ID Status Reason Start Date Expiration Date Visits Requ ested Visits Authorized [id number] 12/09/2016 12/09/2017 1 1 Encounter Details Date Type Department Care Team Description 12/24/2016 Anesthesia Event [facility] Genesis Phillip M D PeriOp Services nAn Marie Walker MD [address] [place] [address] [address] [place] [address] Anesthesia Record Procedure Summary Procedure [...] 1948; No; 12/24/161947 by 12/25/16 1545 by /GI/PARKING [facility]UR Pelvic Kassy Monteiro RN Drake, Vicki A nurse reviewer; 16 fr RETIRED ETT 12/24/16; 1956; Mask [...] Date Recorded Female 01/14/2020 10:57 AM PHARMACY INTAKE TECHNICIAN documented as of this encounter OR Notes Anesthesia Postprocedure Evaluation - Genesis Phillip MD - 12/25/2016 2:40 AM PHARMACY INTAKE TECHNICIAN Patient: Stephani King Procedure(s): Section Immediate Hysterectomy, [...] Phillip MD December 25, 2016 2:40 AM [facility] Anesthesia Procedure Notes - Genesis Phillip MD - 12/25/2016 12:20 AM CSTAssociated Order(s): ANE UU PERIPHERAL/PARAVETEBRAL BLOCK Peripheral Nerve Block Procedure Note Staff: Anesthesiologist: GENESIS PHILLIP Resident/CAE ENGINEER: ANN MARIE HAZEL Block performed by resident/CAE ENGINEER in the presence of a teaching physician [...] No Infusion Method: Single Shot Complications: None MACY INTAKE TECHNICIAN Anesthesia Preprocedure Evaluation - Genesis Phillip MD - 12/24/2016 11:25 PM PHARMACY INTAKE TECHNICIAN Anesthesia Evaluation . Pt has had prior [...] with Patient. Consented to blood products. . MACY INTAKE TECHNICIAN Anesthesia Procedure Notes - Erika Tobar APRN CRNA - 12/24/2016 9:12 PM CSTAssociated Order(s): ANE UU A LINE CATHETER PLACEMENT Arterial Line Procedure Note Staff: Anesthesiologist: GENESIS PHILLIP Resident/CAE ENGINEER: ANN MARIE HAZEL Arterial line performed by resident/CAE ENGINEER in presence of a teaching physician Location: [...] Yes IBP within 10% of NIBP: Yes MACY INTAKE TECHNICIAN documented in this encounter Miscellaneous Notes Anesthesia [...] (Last set prior to Anesthesia Care Transfer) CAE ENGINEER VITALS 12/24/2016 2333 - 12/25/2016 0022 12/25/2016 Pulse: 85 SpO2: (!) 88 % Electronically Signed By: Ann Marie Hazel MD December 25, 2016 12:22 AM MACY INTAKE TECHNICIAN documented in this encounter Plan of Treatment Upcoming Encounters Date Type Specialty Care Team Description 12/20/2021 Office Visit Wound Care Luis Camara, [place] [address] [place], [place] [id number] (Wo rk) 01/21/2022 Office Visit Gastroenterology Juanis Levi [address] [place] [address] Luis Fernando Miles MD [address] [facility] [address] [place], [place] [id number] documented as of this encounter Procedures Procedure Name Priority Date/Time Associated Diagnosis Comme nts ANE Routine 12/25/2016 12:22 AM PHARMACY INTAKE TECHNICIAN PERIPHERAL/PARAVETEBRAL BLOCK Procedure Note - Genesis Phillip MD - 12/25/2016 12:20 AM CSTThis note is in progress. Formatting of this note migh t be different from the original. Peripheral Nerve Block Proce dure Note Staff: Anesthesiologist: JOSELUIS PHILLIP Resident/CAE ENGINEER: IMELDA HAZEL Block performed by resident /CAE ENGINEER in the presence of a teaching physician [...] LINE CATHETER PLACEMENT Routine 12/24/2016 9:12 PM PHARMACY INTAKE TECHNICIAN Procedure Note - Km Tobar APRN CAE ENGINEER - 12/24/2016 9:12 PM CSTThis note is in progress. Formatting of this note migh t be different from the original. Arterial Line Procedure Note Staff: Anesthesiologist: JOSELUIS PHILLIP Resident/CAE ENGINEER: IMELDA HAZEL Arterial line performed by resident/CAE ENGINEER in presence of a teaching physician Location: [...] cell unit New Bag 12/24/2016 10:05 PM PHARMACY INTAKE TECHNICIAN STAT, On Fri12/24/16 at 1940 New Bag 12/24/2016 8:10 PM PHARMACY INTAKE TECHNICIAN Transfuse red blood cell unit New Bag 12/24/2016 8:15 PM PHARMACY INTAKE TECHNICIAN STAT, On Fri12/24/16 at 1941 Inactive Administered Medications - up to 3 most recent administrations Medication Order MAR Action Action Date Dose Rate Site 0.9% sodium chloride infusion New Bag 12/24/2016 10:04 PM PHARMACY INTAKE TECHNICIAN CONTINUOUS PRN, Anesthesia Intra-op, Starting on Fri12/24/16 at 1943, Until Fri12/25/16 at 0019 New Bag 12/24/2016 9:42 PM PHARMACY INTAKE TECHNICIAN New Bag 12/24/2016 7:43 PM PHARMACY INTAKE TECHNICIAN bupivacaine 0.25 % - EPINEPHrine 1:200,000 Given 12/24/2016 11:50 PM PHARMACY INTAKE TECHNICIAN 20 mLs injection PRN, Starting on Fri12/24/16 at 2350, Anesthesia Intra-op bupivacaine liposome (EXPAREL) 1.3 % LA inj Given 08/2016 11:50 PM PHARMACY INTAKE TECHNICIAN 20 mLs susp 20 mL 20 mL, Infiltration, DURING SURGERY, Starting on Fri12/24/16 at 2136, For 1 dose, Invert vial to re-suspend particles immediately prior to withdrawal from vial. Stable for 4 hours at room temperature once removed from vial., Intra-procedure calcium chloride injection Given 12/24/2016 9:53 PM PHARMACY INTAKE TECHNICIAN 1 g PRN, Starting on Fri12/24/16 at 2037, Anesthesia Intra-op Given 12/24/2016 8:57 PM PHARMACY INTAKE TECHNICIAN 1 g Given 12/24/2016 8:37 PM PHARMACY INTAKE TECHNICIAN 1 g ceFAZolin (ANCEF) 1 g vial to attach to NS 100 Given 02/24/2016 11:21 PM PHARMACY INTAKE TECHNICIAN 1 g ml bag for ADULT or 50 ml bag for PEDS Routine, Intravenous, PRN, Starting on Fri12/24/16 at 1939, Anesthesia Intra-op Given 12/24/2016 9:07 PM PHARMACY INTAKE TECHNICIAN 1 g Given 12/24/2016 7:39 PM PHARMACY INTAKE TECHNICIAN 2 g ePHEDrine injection Given 12/24/2016 8:58 PM PHARMACY INTAKE TECHNICIAN 5 mg Intravenous, PRN, Starting on Fri12/24/16 at 2024, Anesthesia Intra-op Given 12/24/2016 8:35 PM PHARMACY INTAKE TECHNICIAN 10 mg Given 12/24/2016 8:24 PM PHARMACY INTAKE TECHNICIAN 10 mg fentaNYL (PF) (SUBLIMAZE) injection Given 12/24/2016 11:12 PM PHARMACY INTAKE TECHNICIAN 100 mcg PRN, moderate to severe pain, Administer over 3-5 Minutes, Starting on Fri12/24/16 at 2259, Anesthesia Intra-op Given 12/24/2016 10:59 PM PHARMACY INTAKE TECHNICIAN 100 mcg HYDROmorphone (DILAUDID) injection Given 12/25/2016 12:15 AM PHARMACY INTAKE TECHNICIAN 0.5 mg PRN, moderate to severe pain, Starting on Fri12/24/16 at 2301, Anesthesia Intra-op Given 12/25/2016 12:02 AM PHARMACY INTAKE TECHNICIAN 0.5 mg Given 12/24/2016 11:05 PM PHARMACY INTAKE TECHNICIAN 0.5 mg lactated ringers infusion New Bag 12/24/2016 8:17 PM PHARMACY INTAKE TECHNICIAN at 125 mL/hr, Intravenous, CONTINUOUS, Pre-procedure, Starting on Fri12/24/16 at 1900, Until Fri12/25/16 at 0150 New Bag 12/24/2016 7:35 PM PHARMACY INTAKE TECHNICIAN midazolam (VERSED) injection Given 12/24/2016 9:16 PM PHARMACY INTAKE TECHNICIAN 2 mg Intravenous, Administer over 2 Minutes, PRN, anxiety, Starting on Fri12/24/16 at 2029, Anesthesia Intra-op Given 12/24/2016 8:29 PM PHARMACY INTAKE TECHNICIAN 2 mg ondansetron (ZOFRAN) injection Given 12/24/2016 11:29 PM PHARMACY INTAKE TECHNICIAN 4 mg Intravenous, PRN, nausea, vomiting, Administer over 2-5 Minutes, Starting on Fri12/24/16 at 2329, Anesthesia Intra-op oxytocin (PITOCIN) 30 units in New Bag 12/24/2016 8:05 PM PHARMACY INTAKE TECHNICIAN 300 mL/hr 300 mL/hr 500 mL 0.9% NaCl infusion CONTINUOUS PRN, Starting on Fri12/24/16 at 2004, Anesthesia Intra-op phenylephrine (VINCENT-SYNEPHRINE) injection 1 Bolus 12/24/2016 9:33 PM PHARMACY INTAKE TECHNICIAN 100 mcg mg 1 mg, Intravenous, CONTINUOUS PRN, Starting on Fri12/24/16 at 2013, Anesthesia Intra-op Bolus 12/24/2016 9:23 PM PHARMACY INTAKE TECHNICIAN 100 mcg Bolus 12/24/2016 9:13 PM PHARMACY INTAKE TECHNICIAN 100 mcg propofol (DIPRIVAN) injection 10 mg/mL v ial Given 12/24/2016 7:56 PM PHARMACY INTAKE TECHNICIAN 200 mg Intravenous, PRN, Starting on Fri12/24/16 at 1956, Anesthesia Intra-op rocuronium (ZEMURON) injection Given 12/24/2016 10:12 PM PHARMACY INTAKE TECHNICIAN 10 mg Intravenous, PRN, Starting on Fri12/24/16 at 2006, Anesthesia Intra-op Given 12/24/2016 9:28 PM PHARMACY INTAKE TECHNICIAN 30 mg Given 12/24/2016 8:54 PM PHARMACY INTAKE TECHNICIAN 20 mg succinylcholine (ANECTINE) injection Given 12/24/2016 7:56 PM PHARMACY INTAKE TECHNICIAN 200 mg Intravenous, PRN, Starting on Fri12/24/16 at 1956, Anesthesia Intra-op sugammadex (BRIDION) injection Given 12/24/2016 11:50 PM PHARMACY INTAKE TECHNICIAN 170 mg PRN, Starting on Fri12/24/16 at 2350, Anesthesia Intra-op Transfuse cryoprecipitate unit New Bag 12/24/2016 11:10 PM PHARMACY INTAKE TECHNICIAN Routine, On Fri12/24/16 at 2311 Transfuse plasma unit New Bag 12/24/2016 8:48 PM PHARMACY INTAKE TECHNICIAN Routine, On Fri12/24/16 at 2028 Transfuse platelets unit New Bag 12/24/2016 9:19 PM PHARMACY INTAKE TECHNICIAN Routine, On Fri12/24/16 at 2119 Transfuse red blood cell unit New Bag 12/24/2016 8:42 PM PHARMACY INTAKE TECHNICIAN STAT, On Fri12/24/16 at 2034 Transfuse red blood cell unit New Bag 12/24/2016 9:30 PM PHARMACY INTAKE TECHNICIAN STAT, On Fri12/24/16 at 2046 Transfuse red blood cell unit New Bag 12/24/2016 8:59 PM PHARMACY INTAKE TECHNICIAN STAT, On Fri12/24/16 at 2046 Transfuse red blood cell unit New Bag 12/24/2016 8:58 PM PHARMACY INTAKE TECHNICIAN STAT, On Fri12/24/16 at 204 Transfuse red blood cell unit New Bag 12/24/2016 8:47 PM PHARMACY INTAKE TECHNICIAN STAT, On Fri12/24/16 at 2046 Transfuse red blood cell unit New Bag 12/24/2016 10:15 PM PHARMACY INTAKE TECHNICIAN STAT, On Fri12/24/16 at 2156 Transfuse red blood cell unit New Bag 12/24/2016 10:50 PM PHARMACY INTAKE TECHNICIAN STAT, On Fri12/24/16 at 2156 Transfuse red blood cell unit New Bag 12/24/2016 9:56 PM PHARMACY INTAKE TECHNICIAN STAT, On Fri12/24/16 at 2156 documented in this encounter Care Teams 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
--- OUTSIDE RECORDS SUMMARY | 2021-12-05 19:25 | XMS_ITS | Encounter Summary ---
:1980 Author Organization [facility] Address [address] [facility] [place] [address] Care Team Providers Name Role Phone Luis Fernando Magana Primary Care Provider Reason for Visit Reason Onset Date Comments Refill Request 12/26/2016 Subutex 2 mg, Wellbu ayaka 150 mg Encounter Details Date Type Department Care Team Description 12/26/2016 Refill [facility] Edgar Alfredo, Ref ill Request (Subutex [facility] [place] 2 mg, Wellbutrin [address] [place] ) [address] [place] [phone] (Wo rk) Social History Tobacco Use Types Packs/Day Years Used Date Smoking Tobacco: Every Day Cigarettes 0.1 10 Smokeless Tobacco: Never Comments: 5 cigarettes a day Alcohol Use Standard Drinks/Week Comments Yes 0 (1 standard drink = 0.6 oz pure Stoppe d after found out alcohol) Sex Assigned at Date Recorded Female 01/14/2020 10:57 AM 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 Laura Fried RN ERCIAL COLLECTOR Telephone Encounter - Edgar Alfredo MD - 01/03/2017 12:43 PM CST Please call in Subutex ordered ERCIAL COLLECTOR Telephone Encounter - Laura Fried RN - 12/27/2016 7:55 AM CST Controlled Substance Refill Request for Subutex Last refill: 12/05/16, 120 tablets, 24 day supply Last clinic visit: 10/10/16 Next appt: 01/23/17 Controlled substance agreement on file: No. Documentation in problem list reviewed: Yes Processing: Fax Rx to pt's pharmacy RX monitoring program ([place]) reviewed: [employer]ICE MANAGER reviewed- no concerns [place] profile: [email or web address] Thank you! Laura Fried RN ERCIAL COLLECTOR Telephone Encounter - Mark Roldan - 12/26/2016 4:46 PM CST Pt called she had her baby early and she will be discharging from the hospital tomorrow, pt requesting a bridge of Subutex and Welbutrin until her next appt on 01/23. Pt contact info: [phone] Mark Roldan Assistant Manager Retail ERCIAL COLLECTOR documented in this encounter Plan of Treatment Upcoming Encounters Date Type Specialty Care Team Description 12/20/2021 Office Visit Wound Care Luis Camara DPM [address] [place] [address] (Wo rk) 01/21/2022 Office Visit Gastroenterology Juanis Levi [address] [place] [address] Luis Fernando Miles MD [address] [address] documented as of this encounter Visit Diagnoses Diagnosis Major depressive disorder, recurrent epi sode, moderate (H) Major depressive disorder, recurrent epi sode, moderate Uncomplicated opioid dependence (H) Opioid type dependence, unspecified documented in this encounter Care Teams City Manager Relationship Specialty Start Date End Date Luis Fernando Magana PCP - General Family Practice 12/07/16 01/19/18 [place] [address] documented as of this encounter
--- OUTSIDE RECORDS SUMMARY | 2021-12-05 19:26 | XMS_ITS | Encounter Summary ---
:1980 Author Organization Stuart Address [address] [place] [address] Care Team Providers Name Role Phone Luis Fernando Magana Primary Care Provider Reason for Visit Reason Comments Rule out rupture of membranes Auth/Cert Specialty Diagnoses / Procedures Referred By Contact Refer red To Contact bilingual patient support caseworker Diagnoses Maternity*JEAN MARIE: 03/07/2017 Rupture premature rupture of membranes (PPROM) delivered, current hospitalization Ur [facility] [address] [place] [address] Phone: Referral ID Status Reason Start Date Expiration Date Visits Requ ested Visits Authorized [id number] 12/09/2016 12/09/2017 1 1 Encounter Details Date Type Department Care Team Description 12/24/2016 Surgery formerly [facility] CatieSo dubois Moraima, Section Immediate PeriOp Services Hysterectomy, Bilateral [address] [place] [address] [address]ANA 300 Cystoscopy. Baby Boy born [phone] [place], [place] at 20:05 [id number] Surgery Details Date/Time [...] at Date Recorded Female 01/14/2020 10:57 AM PRESIDENT CELEBRITY ACQUISTION documented as of this encounter Last Filed Vital Signs Vital Sign Reading Time Taken Comments Blood Pressure 112/68 12/24/2016 4:00 PM PRESIDENT CELEBRITY ACQUISTION Pulse 101 12/19/2016 12:39 PM CDT Temperature 36.7 ??C (98 ??F) 12/24/2016 4:00 PM PRESIDENT CELEBRITY ACQUISTION Respiratory Rate 18 12/24/2016 4:00 PM PRESIDENT CELEBRITY ACQUISTION Oxygen Saturation - - Inhaled Oxygen Concentration - - Weight 83.9 kg (185 lb) 12/24/2016 6:25 AM PRESIDENT CELEBRITY ACQUISTION Height 167.6 cm (5' 6) 12/07/2016 2:19 PM CDT Body Mass Index 29.68 12/07/2016 2:19 PM CDT documented in this encounter Discharge Summaries Petrona Barone DO - 12/27/2016 8:18 AM CST [facility] Discharge Summary Deann King Age: [age] year [...] uncomplicated. She was initially given a dilaudid RN ORTHOPAEDIC, but was transitioned to PO medications on [...] Discharge Medications: Deann King Home Medication Instructions MAILE:[id number] Printed on:12/28/16 7146 Medication Information acetaminophen (TYLENOL) 325 MG tablet [...] machinery while on narcotics. Marleny Kang MD AUTO SERVICER PGY-3 I agree with above discharge summary Petrona Barone DO FACOG Maternal Medicine Specialist Pager: [phone] IDENT CELEBRITY ACQUISTION documented in this encounter Discharge Instructions Discharge InstructionsErika Villalpando RN - 12/27/2016 7:51 AM PRESIDENT CELEBRITY ACQUISTION Postop Instructions Activity ?? Do not lift [...] questions or concerns after you return home. IDENT CELEBRITY ACQUISTION documented in this encounter Medications at Time [...] in the NICU. John's family are Mom, Daenn, Dad Rafal and brother Nathan 10, sister [...] Deann and John are on [facility]. John will be on WIC. At this time Deann has a car seat without a base for the baby. Deann mentioned she has a high school social science teacher Francisco who helps them with the children. SW spoke with [facility] and they report that the family has been assigned to Francisco Silverman [phone] who is case folder with CPS ongoing. (Francisco is out of office until 01/27/17, this creative writer left ). Deann has history of substance use disorder and has been sober for 8 years. She is followed closely by Dr. Alfredo and is on Subutex. Deann also struggles with anxiety and depression, at this time she reports she is doing well. I)SW confirmed with pt's [facility] [phone] that Deann is able to schedule one [...] up to visit. SW spoke with NICU retail area manager and SW informed Deann that an exception would not be made. SW left GIOVANNA at bedside for Deann to sign so that this creative writer can coordinate care with [facility] high school social science teacher Francisco. A)JACKIE spoke with MOB Deann via [...] Tinoco DO - 12/27/2016 5:20 AM CST [facility] Post- Note Name: Deann King S: Patient [...] Routine management: Pain: S/p TAP blocks and RN ORTHOPAEDIC. Scheduled ibuprofen and tylenol. PO oxycodone 20 [...] plan regarding pain management Marleny Kang MD Cardboard Cutter, PGY-3 Physician Attestation I, Petrona Fariae Barone, [...] regarding post c/hyst, opioid dependence, discharge instructions. IDENT CELEBRITY ACQUISTION Petrona Barone DO - 12/26/2016 6:42 AM CST [facility] Note Name: Deann King S: Patient is [...] Routine management: Pain: S/p TAP blocks and RN ORTHOPAEDIC. Scheduled toradol, tylenol. PRN IV dilaudid and [...] and meeting postoperative goals Marleny Kang MD Cardboard Cutter, PGY-3 Physician Attestation IPetrona DO, saw and [...] coordinating care regarding postop care from claire/hyst. IDENT CELEBRITY ACQUISTION Marleny Kang MD - 12/25/2016 9:54 PM [...] oximetry, discussed with RN. Marleny Kang MD AUTO SERVICER PGY-3 Marilu Munguia MD - 12/25/2016 9:38 PM CST I have seen and examined this patient this AM (note delayed). She is HD stable and tolerating her recovery to date. WE have discussed the implication of her surgery and she is aware that she will not be able to have additional children, but is grateful to be feeling well. Marilu Lam IDENT CELEBRITY ACQUISTION Barone, Petrona Escoto, DO - 12/25/2016 5:44 AM CST [facility] Note Name: Deann King S: Patient is [...] b/l I/O last 3 completed shifts: In: 65083 [I.V.:4800] Out: 5900 [Urine:900; Blood:5000] Hgb: Hemoglobin [...] 2. cares: Pain: S/p TAP blocks. Dilaudid RN ORTHOPAEDIC with scheduled tylenol. Holding NSAIDs until Hgb [...] Hypothyroidism: - Continue synthroid. Marleny Kang MD Cardboard Cutter, PGY-3 Physician Attestation Petrona Powers DO, saw [...] tolerance. Labs stable. Toradol given now. Increase RN ORTHOPAEDIC to 0.3mg continuous with 0.3-0.5mg bumps. Total [...] regarding post op pain, recovery plan, etc. IDENT CELEBRITY ACQUISTION Marleny Kang MD - 12/25/2016 2:56 AM CST [facility] Note Name: Deann King S: Patient seen [...] b/l I/O last 3 completed shifts: In: 76219 [I.V.:4800] Out: 5900 [Urine:900; Blood:5000] Hgb: Hemoglobin [...] 2. cares: Pain: S/p TAP blocks. Dilaudid RN ORTHOPAEDIC with scheduled tylenol, will increase demand dose. Holding NSAIDsuntil Hgb stabilizes. Continue home subutex for history of substance abuse. Supportive measures including warm packs, abdominal binder. GI: CLD, advance as tolerated. Scheduled bowel regimen ordered. : Duarte in place, strict Is/Os. Daily weights. Rh: Positive. Rubella: Non-immune, MMR ordered. Mood: Continue home effexor, wellbutrin. SW is following patient. Marleny Kang MD Cardboard Cutter, PGY-3 12/25/2016, 2:28 AM IDENT CELEBRITY ACQUISTION Yareli Greenwood RN - 12/24/2016 8:35 PM [...] and fundal checks if uterus not removed. IDENT CELEBRITY ACQUISTION Petrona Barone DO - 12/24/2016 7:07 PM [...] Dr. Barone M staff and Dr. Nunez AUTO SERVICER staff were notified. Delivery plan was confirmed [...] OR notified, proceed urgently. Marleny Kang MD AUTO SERVICER PGY-3 MFM staff note: Called regarding change in clinical status for patient. Delivery indicated in the setting of pretermcervical dilation, hemorrhage with known posterior placenta previa/possible accreta and prolonged ROM. S/p BMZ nearly 2 weeks ago. Magnesium sulfate for REPAIR DEPARTMENT MANAGER recommended. Type and cross with blood in OR. Petrona Barone DO FACOG Maternal Medicine Specialist Pager: [phone] IDENT CELEBRITY ACQUISTION Petrona Barone DO - 12/24/2016 10:18 AM [...] 140s, moderate variability, present accels, absent decels [place]: no contractions or irritability noted Imaging: See [...] bleeding. Plan c-hyst unless previa resolves with [facility] double staff. - Care conference scheduled [...] million. Needs follow up with GI or Back End Architect for treatment options . - Notify NICU [...] with Dr. Barone. Tatyana Walsh MD MPH AUTO SERVICER, PGY3 Pager: [phone] 12/23/2016 10:04 AM Physician Attestation Petrona Powers [...] and/or coordinating care regarding PPROM, complete previa. IDENT CELEBRITY ACQUISTION Marleny Kang MD - 12/23/2016 11:56 PM [...] team of new symptoms. Marleny Kang MD AUTO SERVICER PGY-3 IDENT CELEBRITY ACQUISTION Petrona Barone DO - 12/23/2016 10:04 AM [...] 130s, moderate variability, present accels, absent decels [place]: quiet, no contractions Assessment/Plan: Deann King is [...] - Needs follow up with GI or Back End Architect for treatment options . ? 5) History [...] with Dr. Barone. Tatyana Walsh MD MPH AUTO SERVICER, PGY3 Pager: [phone] 12/23/2016 10:04 AM Physician Attestation I, Petrona [...] 6. Hepatitis C - s/p GI at [facility] in 2013, genotype 1a - normal LFTs [...] patient): December 22, 2016 Nora Mohamud MD Demolitionist, AUTO SERVICER Maternal- Medicine [email or web address] [phone] (Academic office) [phone] (Pager) IDENT CELEBRITY ACQUISTION Nora Mohamud MD - 12/21/2016 11:52 AM [...] 6. Hepatitis C - s/p GI at [facility] in 2013, genotype 1a, inpatient GI consulted [...] patient): December 21, 2016 Nora Mohamud MD Demolitionist, AUTO SERVICER Maternal- Medicine [email or web address] [phone] (Academic office) [phone] (Pager) Apple Sen RD - 12/20/2016 11:41 [...] protocol. Apple Sen RD, LD Unit Pager: [phone] Lashawn Patel MD - 12/20/2016 8:59 AM [...] moderate variability, + accels, rare variable decels [place]: quiet, 0 ctx in 10 minutes Assessment/Plan: Deann Knig is a 36 year old @ 29w0d [...] bleeding. Plan c-hyst unless previa resolves with [facility] double staff. ? 3. FWB: - [...] - Needs follow up with GI or Back End Architect for treatment options . ? 5. History [...] accels, absent decels - appropriate for GA. [place]: no contractions No intervention needed at this time. Tatyana Walsh MD MPH AUTO SERVICER, PGY3 Pager: [phone] 12/19/2016 11:56 PM Lashawn Patel MD - [...] 130s, moderate variability, + accels, no decels [place]: quiet, 0 ctx in 10 minutes Assessment/Plan: [...] - Needs follow up with GI or Back End Architect for treatment options . ? 5. History [...] accels, absent decels - appropriate for GA. [place]: no contractions No intervention needed at this time. Tatyana Walsh MD MPH AUTO SERVICER, PGY3 Pager: [phone] 12/19/2016 3:13 AM Lashawn Patel MD - [...] 130s, moderate variability, + accels, no decels [place]: quiet, 0 ctx in 10 minutes Assessment/Plan: [...] - Needs follow up with GI or Back End Architect for treatment options . ? 5. History [...] weeks from dose increase. Marleny Kang MD AUTO SERVICER PGY-3 Physician Attestation ILashawn, saw this patient [...] from scratching area. Tatyana Walsh MD MPH AUTO SERVICER, PGY3 Pager: [phone] 12/18/2016 12:08 AM Marleny Kagn MD - 12/17/2016 12:35 PM CDT AUTO SERVICER Progress Note Patient complaining of right ear pain. Notes some mild nasal stuffiness. Denies fever, postnasal drip, hearing changes, other signs of systemic illness including fevers. Denies history of ear infection. Gently cleans ears. Otoscopic exam without exudate or signs of infection, clear TM, no tenderness with motion. Will give debrox drops and monitor for symptoms. Marleny Kang MD AUTO SERVICER PGY-3 Marleny Kang MD - 12/17/2016 11:29 AM CDT AUTO SERVICER Progress Note Patient seen at bedside to [...] attempt at this time. Marleny Kang MD AUTO SERVICER PGY-3 Lashawn Patel MD - 12/17/2016 6:56 [...] 150's, moderate variability, + accels, no decels [place]: Quiet Assessment/Plan: Deann King is a 36 [...] - Needs follow up with GI or Back End Architect for treatment options . ? 5. History [...] accels, absent decels - appropriate for GA. [place]: no contractions No intervention needed at this time. Tatyana Walsh MD MPH AUTO SERVICER, PGY3 Pager: [phone] 12/17/2016 Lashawn Patel MD - 12/16/2016 6:54 [...] 140s, moderate variability, + accels, no decels [place]: 0 ctx in 10 minutes, quiet Assessment/Plan: [...] - Needs follow up with GI or Back End Architect for treatment options . ? 5. History [...] and acupuncture as needed. Marleny Kang MD AUTO SERVICER PGY-3 Physician Attestation I, Lashawn Patel, saw [...] accels, absent decels - appropriate for GA. [place]: no contractions No intervention needed at this time. Tatyana Walsh MD MPH AUTO SERVICER, PGY3 Pager: [phone] 12/16/2016 2:14 AM Petrona Barone DO - [...] moderate variability, present accelerations (10x10), absent decelerations [place]: No contractions noted 12/03 MR IMPRESSION: 1. [...] - Needs follow up with GI or Back End Architect for treatment options . ? 5. History [...] 150, moderate variability, present accelerations, absent decelerations [place]: No contractions noted 12/03 MR IMPRESSION: 1. [...] - Needs follow up with GI or Back End Architect for treatment options . ? 5. History [...] patient, she is agreeable. Elizabeth Manzanares MD AUTO SERVICER Resident PGY4 Pager [phone] 12/13/16 Echo Graham, [...] (nausea, vomiting) up until about a week MORTGAGE SPECIALIST. Over the past 2 weeks she has [...] protocol. Echo Graham RD, LD Unit Pager: [phone] Nora Mohamud MD - 12/13/2016 8:50 AM [...] variable decels. Overall appropriate for gestational age. [place]: no contractions, quiet ? US (12/08): posterior/left [...] - Needs follow up with GI or Back End Architect for treatment options . ? 5. History [...] the treatment of hepatitis C with a rehabilitation services director. A consultation was placed to discuss management [...] 6. Hepatitis C - s/p GI at [facility] in 2013, genotype 1a, inpatient GI consulted [...] patient): December 13, 2016 Nora Mohamud MD Demolitionist, AUTO SERVICER Maternal- Medicine [email or web address] [phone] (Academic office) [phone] (Pager) Tatyana Walsh MD - 12/13/2016 3:23 AM CDT Strip Review (Not delayed due to patient care) FHT: Baseline 150s bpm, moderate variability, prolonged accels, absent decels - appropriate for GA. [place]: no contractions No intervention required at this time. Tatyana Walsh MD MPH AUTO SERVICER, PGY3 Pager: [phone] 12/13/2016 3:23 AM Jess Bernstein LICSW - 12/12/2016 11:11 AM CDT Met with patient today and completed [employer] application. Application faxed today. SW will continue [...] small decels. Overall appropriate for gestational age. [place]: no contractions, quiet ? US (12/08): posterior/left [...] - Needs follow up with GI or Back End Architect for treatment options . ? 5. History [...] 6. Hepatitis C - s/p GI at [facility] in 2013, genotype 1a - normal LFTs [...] patient): December 12, 2016 Nora Mohamud MD Demolitionist, AUTO SERVICER Maternal- Medicine [email or web address] [phone] (Academic office) [phone] (Pager) Tatyana Walsh MD - 12/12/2016 12:53 AM CDT Strip Review (Not delayed due to patient care, services at 2200 on 12/11/2016) FHT: Baseline 140-150s bpm, moderate variability, prolonged accels, absent decels - appropriate for GA. [place]: no contractions No intervention required at this time. Tatyana Walsh MD MPH AUTO SERVICER, PGY3 Pager: [phone] 12/12/2016 12:53 AM Nora Kovacs, PT - [...] in agreement with plan of care Yes [facility] TM 6 Clicks ?? 2016, Trustees of [facility], under license to [employer]. All rights reserved. 6 Clicks Short Forms Basic Mobility Inpatient Short Form [facility]??? 6 Clicks V.2 Basic Mobility Inpatient [...] small decels. Overall appropriate for gestational age. [place]: no contractions, quiet ? US (12/08): posterior/left [...] - Needs follow up with GI or Back End Architect for treatment options . ? 5. History [...] 6. Hepatitis C - s/p GI at [facility] in 2013, genotype 1a - normal LFTs [...] saw the patient): December 11, 2016 Nora oMhamud MD Demolitionist, AUTO SERVICER Maternal- Medicine [email or web address] [phone] (Academic office) [phone] (Pager) Tatyana Walsh MD - 12/10/2016 11:23 PM CDT Strip Review FHT: Baseline 150s bpm, moderate variability, present accels, absent decels - appropriate for GA. [place]: no contractions No intervention needed at this time. Tatyana Walsh MD MPH AUTO SERVICER, PGY3 Pager: [phone] 12/10/2016 11:24 PM Jess Bernstein BENEFITS COUNSELOR - 12/10/2016 11:49 AM CDT [facility] MATERNAL CHILD HEALTH SOCIAL WORK PROGRESS NOTE DATA: Met with Deann to assess needs and to offer support. Patient is 36 year-old, Deann King. She and her , Rafal have been for two years. They live in subsidized housing in [place], [place]. Deann and Rafal know they are expecting a baby boy and have chosen the name John. This is eDann's 9th baby. She shared details about her [...] and was in the NICU at [facility]. in November 2014 at 5 1/2 [...] work. Rafal works at a factory in [place].Rafal does not have his driver's license examiner's license. Deann did not offer details about [...] Assistance, talamantes and food assistance benefits through [facility]. Baby Lopez will be added to these programs upon . eDann would like to switch her MA to [facility] and is asking for assistance with this. Encouraged Deann to contact [facility] Economic Assistance and ask to speak to a financial worker to see what is needed to make this change. Deann is not currently enrolled in [facility] but is interested in application for these benefits. JACKIE contacted [facility] today and message left for the Technical Engineer to see if it is possible to enroll Deann and her 4 year-old son in [facility] while Deann is hospitalized. Deann has only limited baby supplies-- some clothing and a swing. SW can provide assistance with a Pack N Play and diapers from [employer]. Deann has history of chemical abuse. She [...] from this experience that having an ongoing high school social science teacher can be helpful to her and to her children. She has been working with a SW at [facility] (Francisco [phone]) . Deann identifiesthis SW at very supportive. Deann has signed a GIOVANNA to enable me to coordinate SW services. I contacted Francisco today and message left requesting that she page me to discuss Deann's needs in more detail. INTERVENTION: Psychosocial assessment initiated. Provided supportive counseling related to Deann's complicated social history and current situation. Other interventions noted above. ASSESSMENT: Denan is stressed. Despite the impact this hospitalization [...] results from her echo today from the brick veneer maker. She informed us everything looked normal. She [...] small decels. Overall appropriate for gestational age. [place]: 1 contraction in 1 hour, not felt [...] - Needs follow up with GI or Back End Architect for treatment options . ? 5. History [...] 6. Hepatitis C - s/p GI at [facility] in 2013, genotype 1a - normal LFTs [...] patient): December 10, 2016 Nora Mohamud MD Demolitionist, AUTO SERVICER Maternal- Medicine [email or web address] [phone] (Academic office) [phone] (Pager) ?? Tatyana Walsh MD - 12/09/2016 10:46 PM CDT Strip Review FHT: Baseline 150s bpm, moderate variability, present accels, absent decels - appropriate for GA. [place]: 1 contractions/30 mins No intervention needed at this time. Hypothyroidism - TSH returned at normal range - no change to current synthroid needed. Depression - pending psych consult at this time. Continue home effexor. Tatyana Walsh MD MPH AUTO SERVICER, PGY3 Pager: [phone] 12/09/2016 10:46 PM Nora Mohamud MD - [...] 130s, moderate variability, + accels, no decels [place]: quiet, 0 ctx in 10 minutes US [...] will follow-up on administration. Marleny Kang MD AUTO SERVICER PGY-3 Maternal- Medicine Attending Addendum Late entry, [...] 6. Hepatitis C - s/p GI at [facility] in 2013, genotype 1a - normal LFTs [...] patient): December 09, 2016 Nora Mohamud MD Demolitionist, AUTO SERVICER Maternal- Medicine [email or web address] [phone] (Academic office) [phone] (Pager) Tatyana Walsh MD - 12/08/2016 7:58 PM CDT Strip Review FHT: Baseline 150s bpm, moderate variability, present accels, absent decels - appropriate for GA. [place]: no contractions, uterine irritability Tatyana Walsh MD MPH AUTO SERVICER, PGY3 Pager: [phone] 12/08/2016 8:00 PM Italia Galarza, DO - [...] 140s, moderate variability, + accels, no decels [place]: 0 ctx in 10 minutes US (12/08): [...] and Tdap ordered today. Marleny Kang MD AUTO SERVICER PGY-3 Attending Attestation: I agree with the residents note above. I spent 15 minutes total [id number] with this inpatient, and >50% of the [...] toxicity at this time. Rossana Barker MD Cardboard Cutter, PGY-3 12/08/2016, 2:23 AM documented in this encounter H&P Notes HamelNora MD - 12/07/2016 3:06 PM CDT [facility] OB History and Physical Deann King Age: [...] Negative Negative for C. trachomatis rRNA by cardiology rn mediated amplification. A negative result by cardiology rn mediated amplification does not preclude the presence of C. trachomatis infection because results are dependent on proper and adequate collection, absence of inhibitors, and sufficient rRNA to be detected. [facility] 08/29/2016 Negative Negative for N. gonorrhoeae rRNA by cardiology rn mediated amplification. A negative result by cardiology rn mediated amplification does not preclude the presence [...] BREAST SURGERY ABcess drained ??? SECTION ??? AUTOMATIC CLIPPER SURGERY ??? ORTHOPEDIC SURGERY ??? THORACIC SURGERY [...] 150, moderate variability, no accelerations, no decelerations [place]: 0 contractions in 10 minutes Assessment Ms. [...] APRN, CNP, 12/20/2016 4:[address] [facility] Intensive Care Unit So Onofre PsyD [...] a consultation by Nora Mohamud MD at [employer] Antepartum. Patient is currentlyunemployed. She had been working for her mother's [employer] service, but had to stop due to [...] through lifestyle changes. She and her attend moravian-based meetings twice a week and no longer [...] provider, she may schedule outpatient follow-up with [facility] (call [phone] and inform production control scheduler that you are or have recently had a baby) or contact insurance company for additional referrals.? Please contact [facility] if patient is in need of supports while on antepartum.?? She currently denies need for ongoing mental health support services. Provider routed the results of this consultation and treatment recommendations to referring provider. Provider reviewed the results of this consultation and treatment recommendations with referring provider via [employer] Referral to another professional/service is not indicated [...] time to herself. She asked if this creative writer could return tomorrow or later this afternoon, but this creative writer told her that she is booked and won't be able to accommodate except for this morning. Tax Assessor mentioned at the end that if she [...] time to herself. She asked if this creative writer could return tomorrow or later this afternoon, but this creative writer told her that she is booked and won't be able to accommodate except for this morning. Tax Assessor mentioned at the end that if she [...] this service's next availability). Madonna Carrasquillo APRN [employer] TRIMMER - 12/07/2016 5:00 PM CDTAssociated Order(s): NURSE [...] intraventricular hemorrhage, nutrition, growth and development, and nursing home outcomes. Please feel free to call with any additional questions or concerns. Madonna Carrasquillo APRN, [facility] 12/07/2016 6:51 PM Nurse Practitioner Service Intensive Care Unit [facility] Floor Time (min): 5 Face to [...] leveled and Zeroed, after labs were drawn, [place] was removed with approval of Dr Torres. Site held for 5 minutes and dressing placed to Left wrist, no bleeding or oozing noted at that time. Pt VSS, capnography started, pt's family updated via phone, will report to floor RN. IDENT CELEBRITY ACQUISTION Lisa Rubio RN - 12/25/2016 1:42 AM CST PACU to Inpatient Nursing Handoff Patient Deann King is a 36 year old female who speaks Romansh. Procedure Procedure(s): Section Immediate Hysterectomy, Bilateral Salpingectomy [...] mg (total dose) last given at 0131 RN ORTHOPAEDIC / epidural Yes. RN ORTHOPAEDIC - hydromorphone (Dilaudid) Capnography Telemetry ECG Rhythm: [...] numbness;no tingling (12/24/16 0922) Equipment capnography and RN ORTHOPAEDIC Other LDA IV Access Peripheral IV 12/22/16 [...] 12/25/2016 12:05 AM Rationale for Continued Use Anesthesia;/GI/AUTOMATIC CLIPPER Pelvic Procedure 12/25/2016 12:05 AM Urine Output [...] the antepartum RN. Lisa Rubio, RN ASCOM [id number] IDENT CELEBRITY ACQUISTION documented in this encounter Miscellaneous Notes Plan [...] questions and will d/c from inpatient PT. IDENT CELEBRITY ACQUISTION Associated attestation - Roxy Sr PT - 12/27/2016 6:21 PM PRESIDENT CELEBRITY ACQUISTION Physical Therapy Discharge Summary Reason for therapy discharge: Discharged to home with outpatient therapy. Progress towards therapy goal(s). See goals on Care Plan in [facility] electronic health record for [...] leaving. F/U in clinic understood by patient. IDENT CELEBRITY ACQUISTION Plan of Care - Erika Villalpando RN - 12/27/2016 7:50 AM CST Referral made to [facility] for early dc. IDENT CELEBRITY ACQUISTION Plan of Care - Lucia Cotton RN [...] out which was taken to the nicu. IDENT CELEBRITY ACQUISTION Plan of Care - Hyacinth Wolf RN [...] more. Will continue with plan of Care. IDENT CELEBRITY ACQUISTION Note - Nikky Smith RNC - 12/26/2016 [...] to provide support. Nikky Smith, RNC, IBCLC IDENT CELEBRITY ACQUISTION Plan of Care - Lucia Cotton, RN [...] of without calling us to stand by. IDENT CELEBRITY ACQUISTION Plan of Care - Yessenia Julian RN [...] at bedside. Continue with plan of care. IDENT CELEBRITY ACQUISTION Provider Notification - Kristie Merida RN - 12/25/2016 9:01 PM CST Sepsis alert came up for pt. BP 91/63. HR of 115. SpO2 of 98. IDENT CELEBRITY ACQUISTION Plan of Care - Maria Antonia Hidalgo [...] and oral oxycodone given with initial relief. IDENT CELEBRITY ACQUISTION Provider Notification - Kristie Merida RN - 12/25/2016 7:48 PM CST Do you want pt to continue with IV Toradol and Dilaudid? FYI-pt is going outside to smoke. IDENT CELEBRITY ACQUISTION Plan of Care - Maria Antonia Hidalgo [...] Patient medicated during the shift with dilaudid RN ORTHOPAEDIC for pain, which was discontinued at 13:50. [...] any other needs. Anticipate discharge on Friday. IDENT CELEBRITY ACQUISTION Plan of Care - Maria Antonia Hidalgo [...] one hour. Fixed and working well now IDENT CELEBRITY ACQUISTION Plan of Care - Khloe Elmore RN - 12/25/2016 5:50 AM CST Problem: ( Delivery) (Adult,Obstetrics,Pediatric) Goal: Signs and Symptoms of Listed Potential Problems Will be Absent, Minimized or Managed () Signs and symptoms of listed potential problems will be absent, minimized or managed by discharge/transition of care (reference ( Delivery) (Adult,Obstetrics,Pediatric) CPG). Outcome: No Change Pt's pain intolerable with RN ORTHOPAEDIC @ 0.2mg dilaudid every 10 minutes, dose increased to 0.3mg every 10 minutes with max dose delivery 1.2mg/hr. Pt's pain remains intolerable, but getting better, she falls asleep between RN ORTHOPAEDIC doses. IDENT CELEBRITY ACQUISTION Op Note - So Nunez MD - 12/24/2016 11:53 PM CST [facility] Full Operative Progress Note Surgery Date: 12/24/2016 Surgeon: So Nunez MD Assistants: Marilu Lam MD Parts Picker/Onc staff Petrona Barone MD MFM staff Donita Barrow MD MFM fellow Margarita Talbert MD Parts Picker/Onc fellow Marleny Kang MD PGY-3 Tatyana Govea MD PGY-3 Kayla Davidson MD PGY-2 Exceptional Circumstances Require an Rail Setter Surgeon -Exceptional medical circumstances in this case required the participation of gallery assistant surgeons Drs. Barone and Idania in [...] condition after extubation in the room. Dr. Nunze was present and scrubbed for the entirety of the procedure. Marleny Kang MD Cardboard Cutter, PGY-3 12/24/2016, 11:54 PM I was present and scrubbed throughout the procedure, I agree with the note above So Nunez MD IDENT CELEBRITY ACQUISTION Brief Op Note - Marleny Kang MD - 12/24/2016 11:23 PM CST [facility] Hysterectomy Brief Operative Note Surgery Date: 12/24/2016 Surgeon: So Nunez MD; Marilu Lam MD (intraoperative consult) Assistants: Petrona Barone MD [facility] staff Donita Barrow MD MFM fellow Margarita Talbert MD Parts Picker/Onc fellow Marleny Kang MD PGY-3 Tatyana Govea [...] Disposition: Stable to PACU Marleny Kang MD AUTO SERVICER PGY-3 IDENT CELEBRITY ACQUISTION Op Note - Marilu Lam MD - 12/24/2016 10:18 PM CST DATE OF SERVICE: 12/07/2016 Remainder of this note will be dictated by Dr. Nunez's service and for my portion is as follows: ATTENDING: Marilu Lam MD DIRECTOR LIFE SALES: Dr. Talbert, PGY 7 ANESTHESIA: GET COMPLICATIONS: [...] LAM MD MT: Name: DEANN KING Account: [id number] : 1980 Procedure Date: 12/07/2016 Document: [id number] IDENT CELEBRITY ACQUISTION Plan of Care - Juanis Henson RN [...] Kang and questions answered. SCD's were placed. [facility] saw patient prior to transfer to the OR. There was no new bleeding after the spec exam and prior to transfer to cart. While transferto OR patient felt blood coming out and only a small amount was seen on perineum. Dr. Barone was updated on patient status while transfer to OR. IDENT CELEBRITY ACQUISTION Plan of Care - Juanis Henson RN - 12/24/2016 6:04 PM CST Problem: Patient Care Overview Goal: Plan of Care/Patient Progress Review Outcome: No Change Continues to have cramping. Intensity remains the same. Continue to monitor. IDENT CELEBRITY ACQUISTION Plan of Care - Nakia Figueroa PTA - 12/24/2016 4:18 PM CST Problem: PT General Care Plan Goal: PT target date for goal attainment PT: patient displayed improvement with pain and prior to treatment rated neck pain 4/10 and after manual therapy decreased to 0/10. Tape Folding Machine Operator PT Patient plan for discharge: home Current status: patient independent with all mobilities and HEP Barriers to return to prior living situation: none Recommendations for discharge: home would benefit from OP PT for management of neck and back Rationale for recommendations: decrease back and neck pain and improve posture. Entered by: Nakia Figueroa 12/24/2016 4:17 PM IDENT CELEBRITY ACQUISTION Plan of Care - Petrona Sharif RN [...] 140s, with moderate variability and without decelerations. IDENT CELEBRITY ACQUISTION Plan of Care - Annie Allen RN [...] labor, signs/symptoms of infection, or /maternal compromise. IDENT CELEBRITY ACQUISTION Plan of Care - Annie Allen RN [...] reassured after exam. Continue plan of care. IDENT CELEBRITY ACQUISTION Provider Notification - Annie Allen RN - 12/24/2016 12:02 AM CST 12/24/16 0002 Provider Notification Provider Name/Title Dr. Kang Method of Notification Electronic Page Request Evaluate - Remote Notification Reason Other (Comment) Pt requesting UA/UC for increased urine frequency. Thanks IDENT CELEBRITY ACQUISTION Provider Notification - Juanis Henson RN - [...] see patient when she returns to floor. IDENT CELEBRITY ACQUISTION Plan of Care - Juanis Henson RN [...] symptoms. RN will talk with Dr. Kang. IDENT CELEBRITY ACQUISTION Plan of Care - Juanis Henson RN [...] ate, in case she progresses into labor. IDENT CELEBRITY ACQUISTION Provider Notification - Leslie Mendoza RN - 12/23/2016 3:35 PM CST 12/23/16 0755 Provider Notification Provider Name/Title Dr. Walsh, Dr. Barone, Med student Method of Notification At Bedside Request Evaluate in Person Notification Reason Status Update IDENT CELEBRITY ACQUISTION Plan of Care - Leslie Mendoza RN [...] labor, signs/symptoms of infection, or /maternal compromise. IDENT CELEBRITY ACQUISTION Provider Notification - Leslie Mendoza RN - 12/23/2016 12:31 PM CST 12/23/16 0945 OB Patient Position Activity/Level of Assist Ambulating Patient went outside IDENT CELEBRITY ACQUISTION Provider Notification - Leslie Mendoza RN - 12/23/2016 12:31 PM CST 12/23/16 0720 OB Patient Position Maternal Position Standing Activity/Level of Assist Ambulating Patient went outside (to smoke) IDENT CELEBRITY ACQUISTION Provider Notification - Leslie Mendoza RN - 12/23/2016 7:58 AM CST Providers here for morning rounds and EFM strip review. Patient concerned about her oral pain on hertongue. There is a sore/ulceration there. Providers reminding patient to NOT self examine digitally her cervix. IDENT CELEBRITY ACQUISTION Plan of Care - Bonita Love RN [...] Will continue with current plan of care. IDENT CELEBRITY ACQUISTION Provider Notification - Bonita Love RN - 12/22/2016 8:02 PM PRESIDENT CELEBRITY ACQUISTION 12/22/162000 Provider Notification Provider Name/Title Dr. Kang Method of Notification In Department Notification Reason Other (Comment) Patient reporting increased leaking of fluid today. Yellow colored on pads, no odor. Patient is not having any abdominal tenderness. Afebrile. Pt declines monitoring at this time. Dr. Kang updated. IDENT CELEBRITY ACQUISTION Plan of Care - Yareli Marsh RN [...] today. Will continue with plan of care. IDENT CELEBRITY ACQUISTION Plan of Care - Wendy Richter RN [...] VSS; EFM as charted. Continue expectant management. IDENT CELEBRITY ACQUISTION Plan of Care - Wendy Richter RN - 12/22/2016 3:13 AM CST Due to daylight savings time, labor calculations, ruptured membrane calculations and/or cervical exams times may be off by up to one hour from the actual time. A summary of the times/calcuations follows: None for this patient. IDENT CELEBRITY ACQUISTION Plan of Care - So Cheng RN [...] son. They have been working on some [employer] blankKomar Gamesand watching movies. Pt continues to go outside [...] the bathroom for longer period of time. Tape Folding Machine Operator PT Patient plan for discharge: home Current [...] to monitor and update providerwith any changes. [place] quiet and EFM mod variability, occasional accels, [...] No visitors last diana but worked on [employer] and did other crafts/games. No complaints today. [...] axillary as well as left upper abd. Shedd, raised areas, itches but also dalton per [...] postural exercises and relief with suboccipital release. Tape Folding Machine Operator PT Patient plan for discharge: home Current [...] functional goals as expected D: Patient called creative writer into room at 1230 stating pain in her side after laughing at the cartoon onthe tv. Placed on EFM, no contractions noted accelerations and baby appropriate for gestational age.Patient called creative writer back into room at 1305 stating [...] of Care/Patient Progress Review Outcome: No Change Tax Assessor went to assess vital signs. Pt. Stated that she had some reddish pink mucus in the toilet andsome pink fluid on the toilet tissue. Small quarter sized reddish pink mucus noted in the bottom of the toilet. Urine was yellow colored, no blood noted. Tax Assessor placed and uterine monitors on thepatient. Patient [...] scant bloody mucus in toilet when voided. Shedd on toilet tissue. Dr. Cyr notified of [...] gum. Pt declines at this time. With high school social science teacher at this time. Pt declines a nicotine [...] within reach. Pt states understanding to put production line operator light if any change in condition. Plan [...] Overview Goal: Plan of Care/Patient Progress Review Tape Folding Machine Operator PT Patient plan for discharge: Home Current [...] within reach. Pt states understanding to put production line operator light if any changes in condition. Plan [...] RN - 12/10/2016 5:32 PM CDT 12/10/16 4460 Provider Notification Provider Name/Title Dr. Kang Method [...] orintensity. Abdomen palpates soft, and toco didn't black pickler any contractions. FHT: mod variability with accels, [...] Visit Wound Care Luis Camara DPM [address] [place] [address] (Wo rk) 01/21/2022 Office Visit Gastroenterology Juanis Levi [address] [place] [address] Luis Fernando Miles MD [address] [facility] [address] [place] [address] Pending Results Name Type Priority Associated Date/Time Diagnoses Transfuse red blood Nursing Transfusion STAT 1 02/24/2016 8:10 cell unit PM PRESIDENT CELEBRITY ACQUISTION Transfuse red blood Nursing Transfusion STAT 1 02/24/2016 8:15 cell unit PM PRESIDENT CELEBRITY ACQUISTION Transfuse plasma unit Nursing Transfusion Routine 12/24/2016 8:48 PM PRESIDENT CELEBRITY ACQUISTION Transfuse red blood Nursing Transfusion STAT 1 02/24/2016 8:42 cell unit PM PRESIDENT CELEBRITY ACQUISTION Transfuse red blood Nursing Transfusion STAT 1 02/24/2016 9:30 cell unit PM PRESIDENT CELEBRITY ACQUISTION Transfuse red blood Nursing Transfusion STAT 1 02/24/2016 8:59 cell unit PM PRESIDENT CELEBRITY ACQUISTION Transfuse red blood Nursing Transfusion STAT 1 02/24/2016 8:58 cell unit PM PRESIDENT CELEBRITY ACQUISTION Transfuse red blood Nursing Transfusion STAT 1 02/24/2016 8:47 cell unit PM PRESIDENT CELEBRITY ACQUISTION Placenta path order and Lab Routine 08/2016 8:05 indications PM PRESIDENT CELEBRITY ACQUISTION Transfuse platelets Nursing Transfusion Routine 1 02/24/2016 9:19 unit PM PRESIDENT CELEBRITY ACQUISTION Transfuse red blood Nursing Transfusion STAT 1 02/24/2016 10:15 cell unit PM PRESIDENT CELEBRITY ACQUISTION Transfuse red blood Nursing Transfusion STAT 1 02/24/2016 10:50 cell unit PM PRESIDENT CELEBRITY ACQUISTION Transfuse red blood Nursing Transfusion STAT 1 02/24/2016 9:56 cell unit PM PRESIDENT CELEBRITY ACQUISTION Cryoprecipitate prepare Blood Bank Routine Chronic hepatitis 12/24/2016 10:59 order unit C without hepatic PM PRESIDENT CELEBRITY ACQUISTION coma (H) Transfuse Nursing Transfusion Routine 12/25/19 17 11:10 cryoprecipitate unit PM PRESIDENT CELEBRITY ACQUISTION Scheduled Referrals Name Type Priority Associated Diagnoses Order S chedule GASTROENTEROLOGY ADULT REF Referral Routine Chronic hepati tis C Ordered: 12/26/2016 CONSULT ONLY without hepatic coma (H) DENTAL REFERRAL Referral Routine Dental caries Ordered: documented as of this encounter Procedures Procedure Name Priority Date/Time Associated Comments Diagnosis CBC WITH PLATELETS Routine 12/26/2016 8:10 Chronic hepatitis R esults for this AM PRESIDENT CELEBRITY ACQUISTION C without hepatic procedure are in coma (H) the results section. CBC WITH PLATELETS Timed 12/25/2016 2:04 Chronic hepatitis R esults for this PM PRESIDENT CELEBRITY ACQUISTION C without hepatic procedure are in coma (H) the results section. INR Timed 12/25/2016 7:00 Chronic hepatitis Results for this AM PRESIDENT CELEBRITY ACQUISTION C without hepatic procedure are in coma (H) the results section. PARTIAL THROMBOPLASTIN Timed 12/25/2016 7:00 Chronic hepatit is Results for this TIME AM PRESIDENT CELEBRITY ACQUISTION C without hepatic procedure are in coma (H) the results section. MAGNESIUM Timed 12/25/2016 7:00 Chronic hepatitis Results for this AM PRESIDENT CELEBRITY ACQUISTION C without hepatic procedure are in coma (H) the results section. FIBRINOGEN ACTIVITY Timed 12/25/2016 7:00 Chronic hepatitis Results for this AM PRESIDENT CELEBRITY ACQUISTION C without hepatic procedure are in coma (H) the results section. BASIC METABOLIC PANEL Timed 12/25/2016 7:00 Chronic hepatiti s Results for this AM PRESIDENT CELEBRITY ACQUISTION C without hepatic procedure are in coma (H) the results section. CBC WITH PLATELETS Timed 12/25/2016 7:00 Chronic hepatitis R esults for this AM PRESIDENT CELEBRITY ACQUISTION C without hepatic procedure are in coma (H) the results section. INR Routine 12/25/2016 12:54 Chronic hepatitis Result s for this AM PRESIDENT CELEBRITY ACQUISTION C without hepatic procedure are in coma (H) the results section. PARTIAL THROMBOPLASTIN Routine 12/25/2016 12:54 Chronic hepati tis Results for this TIME AM PRESIDENT CELEBRITY ACQUISTION C without hepatic procedure are in coma (H) the results section. FIBRINOGEN ACTIVITY Routine 12/25/2016 12:54 Chronic hepatitis Results for this AM PRESIDENT CELEBRITY ACQUISTION C without hepatic procedure are in coma (H) the results section. BASIC METABOLIC PANEL Routine 12/25/2016 12:54 Chronic hepatit is Results for this AM PRESIDENT CELEBRITY ACQUISTION C without hepatic procedure are in coma (H) the results section. CBC WITH PLATELETS Routine 12/25/2016 12:54 Chronic hepatitis Results for this AM PRESIDENT CELEBRITY ACQUISTION C without hepatic procedure are in coma (H) the results section. XR ABDOMEN PORT 1 VIEW STAT 12/24/2016 11:10 R esults for this PM PRESIDENT CELEBRITY ACQUISTION procedure are i n the results section. TRANSFUSE Routine 12/24/2016 11:10 CRYOPRECIPITATE UNIT PM PRESIDENT CELEBRITY ACQUISTION BLOOD COMPONENT Routine 12/24/2016 10:59 Chronic hepatitis Res ults for this PM PRESIDENT CELEBRITY ACQUISTION C without hepatic procedure are in coma (H) the results section. PREPARE CRYOPRECIPITATE Routine 12/24/2016 10:59 Chronic hepat itis (SINGLE UNIT) PM PRESIDENT CELEBRITY ACQUISTION C without hepatic coma (H) TRANSFUSE RED BLOOD CELL STAT 12/24/2016 10:50 UNIT PM PRESIDENT CELEBRITY ACQUISTION ARTERIAL PANEL Routine 12/24/2016 10:45 Chronic hepatitis Resu lts for this PM PRESIDENT CELEBRITY ACQUISTION C without hepatic procedure are in coma (H) the results section. TRANSFUSE RED BLOOD CELL STAT 12/24/2016 10:15 UNIT PM PRESIDENT CELEBRITY ACQUISTION SURGICAL PATHOLOGY EXAM Routine 12/24/2016 10:13 Results for this PM PRESIDENT CELEBRITY ACQUISTION procedure are i n the results section. TRANSFUSE RED BLOOD CELL STAT 12/24/2016 9:56 UNIT PM PRESIDENT CELEBRITY ACQUISTION ARTERIAL PANEL Routine 12/24/2016 9:50 Chronic hepatitis Resul ts for this PM PRESIDENT CELEBRITY ACQUISTION C without hepatic procedure are in coma (H) the results section. INR Routine 12/24/2016 9:50 Chronic hepatitis Results for this PM PRESIDENT CELEBRITY ACQUISTION C without hepatic procedure are in coma (H) the results section. PARTIAL THROMBOPLASTIN Routine 12/24/2016 9:50 Chronic hepatit is Results for this TIME PM PRESIDENT CELEBRITY ACQUISTION C without hepatic procedure are in coma (H) the results section. FIBRINOGEN ACTIVITY Routine 12/24/2016 9:50 Chronic hepatitis Results for this PM PRESIDENT CELEBRITY ACQUISTION C without hepatic procedure are in coma (H) the results section. CBC WITH PLATELETS Routine 12/24/2016 9:50 Chronic hepatitis R esults for this PM PRESIDENT CELEBRITY ACQUISTION C without hepatic procedure are in coma (H) the results section. TRANSFUSE RED BLOOD CELL STAT 12/24/2016 9:30 UNIT PM PRESIDENT CELEBRITY ACQUISTION ARTERIAL PANEL Routine 12/24/2016 9:20 Chronic hepatitis Resul ts for this PM PRESIDENT CELEBRITY ACQUISTION C without hepatic procedure are in coma (H) the results section. TRANSFUSE PLATELETS UNIT Routine 12/24/2016 9:19 PM PRESIDENT CELEBRITY ACQUISTION TRANSFUSE RED BLOOD CELL STAT 12/24/2016 8:59 UNIT PM PRESIDENT CELEBRITY ACQUISTION TRANSFUSE RED BLOOD CELL STAT 12/24/2016 8:58 UNIT PM PRESIDENT CELEBRITY ACQUISTION TRANSFUSE PLASMA UNIT Routine 12/24/2016 8:48 PM PRESIDENT CELEBRITY ACQUISTION TRANSFUSE RED BLOOD CELL STAT 12/24/2016 8:47 UNIT PM PRESIDENT CELEBRITY ACQUISTION BLOOD COMPONENT Routine 12/24/2016 8:45 Chronic hepatitis Resu lts for this PM PRESIDENT CELEBRITY ACQUISTION C without hepatic procedure are in coma (H) the results section. BLOOD COMPONENT Routine 12/24/2016 8:45 Chronic hepatitis Resu lts for this PM PRESIDENT CELEBRITY ACQUISTION C without hepatic procedure are in coma (H) the results section. PREPARE PLATELETS ORDER Routine 12/24/2016 8:45 Chronic hepati tis Results for this UNIT PM PRESIDENT CELEBRITY ACQUISTION C without hepatic procedure are in coma (H) the results section. ARTERIAL PANEL Routine 12/24/2016 8:44 Chronic hepatitis Resul ts for this PM PRESIDENT CELEBRITY ACQUISTION C without hepatic procedure are in coma (H) the results section. INR Routine 12/24/2016 8:44 Chronic hepatitis Results for this PM PRESIDENT CELEBRITY ACQUISTION C without hepatic procedure are in coma (H) the results section. PARTIAL THROMBOPLASTIN Routine 12/24/2016 8:44 Chronic hepatit is Results for this TIME PM PRESIDENT CELEBRITY ACQUISTION C without hepatic procedure are in coma (H) the results section. FIBRINOGEN ACTIVITY Routine 12/24/2016 8:44 Chronic hepatitis Results for this PM PRESIDENT CELEBRITY ACQUISTION C without hepatic procedure are in coma (H) the results section. CBC WITH PLATELETS Routine 12/24/2016 8:44 Chronic hepatitis R esults for this PM PRESIDENT CELEBRITY ACQUISTION C without hepatic procedure are in coma (H) the results section. TRANSFUSE RED BLOOD CELL STAT 12/24/2016 8:42 UNIT PM PRESIDENT CELEBRITY ACQUISTION ARTERIAL PANEL Routine 12/24/2016 8:25 Chronic hepatitis Resul ts for this PM PRESIDENT CELEBRITY ACQUISTION C without hepatic procedure are in coma (H) the results section. PLACENTA PATH ORDER AND Routine 12/24/2016 8:05 INDICATIONS PM PRESIDENT CELEBRITY ACQUISTION BLOOD COMPONENT Routine 12/24/2016 7:25 Chronic hepatitis Resu lts for this PM PRESIDENT CELEBRITY ACQUISTION C without hepatic procedure are in coma (H) the results section. BLOOD COMPONENT Routine 12/24/2016 7:25 Chronic hepatitis Resu lts for this PM PRESIDENT CELEBRITY ACQUISTION C without hepatic procedure are in coma (H) the results section. BLOOD COMPONENT Routine 12/24/2016 7:25 Chronic hepatitis Resu lts for this PM PRESIDENT CELEBRITY ACQUISTION C without hepatic procedure are in coma (H) the results section. BLOOD COMPONENT Routine 12/24/2016 7:25 Chronic hepatitis Resu lts for this PM PRESIDENT CELEBRITY ACQUISTION C without hepatic procedure are in coma (H) the results section. BLOOD COMPONENT Routine 12/24/2016 7:25 Chronic hepatitis Resu lts for this PM PRESIDENT CELEBRITY ACQUISTION C without hepatic procedure are in coma (H) the results section. BLOOD COMPONENT Routine 12/24/2016 7:25 Chronic hepatitis Resu lts for this PM PRESIDENT CELEBRITY ACQUISTION C without hepatic procedure are in coma (H) the results section. BLOOD COMPONENT Routine 12/24/2016 7:25 Chronic hepatitis Resu lts for this PM PRESIDENT CELEBRITY ACQUISTION C without hepatic procedure are in coma (H) the results section. BLOOD COMPONENT Routine 12/24/2016 7:25 Chronic hepatitis Resu lts for this PM PRESIDENT CELEBRITY ACQUISTION C without hepatic procedure are in coma (H) the results section. PREPARE PLASMA (UNIT) Routine 12/24/2016 7:25 Chronic hepatiti s Results for this PM PRESIDENT CELEBRITY ACQUISTION C without hepatic procedure are in coma (H) the results section. HYSTERECTOMY, FOLLOWING 12/24/2016 7:24 SECTION PM PRESIDENT CELEBRITY ACQUISTION CBC WITH PLATELETS & STAT 12/24/2016 7:06 Chronic hepatitis Results for this DIFFERENTIAL PM PRESIDENT CELEBRITY ACQUISTION C without hepatic procedure are in coma (H) the results section. ROUTINE UA WITH Routine 12/24/2016 7:50 Chronic hepatitis Resu lts for this MICROSCOPIC REFLEX TO AM PRESIDENT CELEBRITY ACQUISTION C without hepatic p rocedure are in CULTURE coma (H) the results section. URINE CULTURE Routine 12/24/2016 7:50 Chronic hepatitis Result s for this AM PRESIDENT CELEBRITY ACQUISTION C without hepatic procedure are in coma (H) the results section. WET PREPARATION Routine 12/23/2016 11:53 Chronic hepatitis Res ults for this PM PRESIDENT CELEBRITY ACQUISTION C without hepatic procedure are in coma (H) the results section. MFM BPP SINGLE Routine 12/23/2016 8:37 Results fo r this AM [employer] procedure are i n the results section. BLOOD COMPONENT Routine 12/23/2016 6:54 Chronic hepatitis Resu lts for this AM [employer] AC[employer]ION C without hepatic procedure are in coma (H) the results section. BLOOD COMPONENT Routine 12/23/2016 6:54 Chronic hepatitis Resu lts for this AM [employer]LE[employer] ACQUISTION C without hepatic procedure are in coma (H) the results section. BLOOD COMPONENT Routine 12/23/2016 6:54 Chronic hepatitis Resu lts for this AM [employer]LE[employer] ACQUISTION C without hepatic procedure are in coma (H) the results section. BLOOD COMPONENT Routine 12/23/2016 6:54 Chronic hepatitis Resu lts for this AM [employer] ACQUISTION C without hepatic procedure are in coma (H) the results section. BLOOD COMPONENT Routine 12/23/2016 6:54 Chronic hepatitis Resu lts for this AM [employer] ACQUISTION C without hepatic procedure are in coma (H) the results section. BLOOD COMPONENT Routine 12/23/2016 6:54 Chronic hepatitis Resu lts for this AM [employer] ACQUISTION C without hepatic procedure are in coma (H) the results section. BLOOD COMPONENT Routine 12/23/2016 6:54 Chronic hepatitis Resu lts for this AM [employer]LE[employer]ITY ACQUISTION C without hepatic procedure are in coma (H) the results section. BLOOD COMPONENT Routine 12/23/2016 6:54 Chronic hepatitis Resu lts for this AM [employer]LE[employer] ACQUISTION C without hepatic procedure are in coma (H) the results section. BLOOD COMPONENT Routine 12/23/2016 6:54 Chronic hepatitis Resu lts for this AM [employer]LE[employer] ACQUISTION C without hepatic procedure are in coma (H) the results section. BLOOD COMPONENT Routine 12/23/2016 6:54 Chronic hepatitis Resu lts for this AM [employer]LE[employer] ACQUISTION C without hepatic procedure are in coma (H) the results section. BLOOD COMPONENT Routine 12/23/2016 6:54 Chronic hepatitis Resu lts for this AM [employer]LE[employer] ACQUISTION C without hepatic procedure are in coma (H) the results section. BLOOD COMPONENT Routine 12/23/2016 6:54 Chronic hepatitis Resu lts for this AM [employer] ACQUISTION C without hepatic procedure are in coma (H) the results section. ABO/RH TYPE AND SCREEN Routine 12/23/2016 6:54 Chronic hepatit is Results for this AM [employer] ACQU[employer] C without hepatic procedure are in coma (H) the results section. ABO/RH TYPE AND SCREEN Timed 12/20/2016 10:48 Chronic hepati tis Results for this AM CDT C without hepatic procedure are in coma (H) the results section. [facility] BPP SINGLE Routine 12/19/2016 8:46 Results fo r this AM CDT procedure are i n the results section. ABO/RH TYPE AND SCREEN Timed 12/17/2016 6:54 Chronic hepatit is Results for this AM CDT C without hepatic procedure are in coma (H) the results section. [facility] US OB LIMITED Routine 12/16/2016 9:24 [...] procedure are i n the results section. [facility] OB LIMITED Routine 12/12/2016 8:36 Results for this SINGLE/MULTIPLE AM CDT procedure ar e in the results section. ABO/RH TYPE AND SCREEN Timed 12/11/2016 9:05 Re sults for this AM CDT procedure are i n the results section. ECHO COMPLETE* Routine 12/10/2016 9:05 Resu lts for this AM CDT procedure are i n the results section. [facility] US COMPREHENSIVE Routine 12/08/2016 9:52 Resu [...] (ABNORMAL) CBC with platelets (12/26/2016 8:10 AM [employer]QU[employer]) [facility] Method Time Signature WBC 8.5 4.0 - 11.0 12/26/2016 [facility]ITY 10e9/L 8:20 AM [facility]LE[employer]ITY ACQUISTION [facility] RBC Count 3.19 (L) 3.8 - [...] - 450 12/26/2016 [facility] 10e9/L 8:20 AM [facility] Specimen Anatomical Collection Method Collection Time Receive d Time (Source) Location / / Volume Laterality Blood specimen 12/26/2016 8:10 AM 017 8:12 (specimen) [employer]LE[employer] ACQUISTION AM [employer] ACQUISTION Kayla Davidson MD LAB - BLOOD ORDERABLES Performing Organization Address City/State/ZIP Code Phon e Number [facility] [address] [place] [address] [facility] (ABNORMAL) CBC with platelets (12/25/2016 2:04 PM PRESIDENT [employer]LEBRITY ACQUISTION) [facility] gist Method Time Signature WBC 9.7 [...] 100 12/25/2016 [facility] OF fl 2:10 PM [facility] [employer]LE[employer]ITY ACQUISTION [facility] MCH 29.3 26.5 - 12/25/2016 UNIVERSITY [...] specimen 12/25/2016 2:04 PM 017 2:08 (specimen) PRES[employer]LE[employer]ITY ACQUISTION PM PRESIDENT [employer]LE[employer]ITY ACQUISTION So Nunez MD LAB - BLOOD ORDERABLES Performing Organization Address City/[facility] Phon e Number [address] (ABNORMAL) Magnesium (12/25/2016 7:00 AM [employer]QU[employer]ION) P athologist Signature Magnesium 1.5 (L) 1.6 - 2.3 12/25/2016 [facility] mg/dL 8:07 AM [facility] Specimen Anatomical Collection Method Collection Time Receive d Time (Source) Location / / Volume Laterality Blood specimen 12/25/2016 7:00 AM 017 7:06 (specimen) PRESIDENT [employer]LEBRITY ACQUISTION AM PRESIDENT [employer]LE[employer]ITY ACQUISTION So Nunez MD LAB - BLOOD ORDERABLES Performing Organization Address City/[facility] Phon e Number [address] (ABNORMAL) Basic metabolic panel (12/25/2016 7:00 AM [employer]LE[employer] ACQUISTION) Patholo gist Method Time Signature Sodium 139 [...] [facility] GFR Estimate >90 >60 12/25/2016 [place] mL/min/1.7 8:[address] Comment: Non GFR Calc GFR Estimate If >90 >60 mL/min/1.7m2 12/25/2016 8:13 A M [facility] Black [facility] Comment: GFR Calc Calcium 7.6 (L) 8.5 - 10.1 mg/dL 12/25/2016 8:13 AM [facility] Specimen Anatomical Collection Method Collection Time Receive d Time (Source) Location / / Volume Laterality Blood specimen 12/25/2016 7:00 AM 017 7:07 (specimen) PRESIDENT CELEBRITY ACQUISTION AM PRESIDENT [employer]LE[employer]ITY ACQUISTION Petrona Barone DO LAB - BLOOD ORDERABLES Performing Organization Address City/[facility]/ZIP Code Phon e Number [place] [phone] [facility] Fibrinogen activity (12/25/2016 7:00 AM [employer]QU[employer]ION) P athologist Signature Fibrinogen 398 200 - 420 12/25/2016 [facility] mg/dL 7:58 AM [facility] Specimen Anatomical Collection Method Collection Time Receive d Time (Source) Location / / Volume Laterality Blood specimen 12/25/2016 7:00 AM 017 7:07 (specimen) PRESIDENT CELEBRITY ACQUISTION AM [employer]LE[employer] ACQUISTION Petrona Barone DO LAB - BLOOD ORDERABLES Performing Organization Address City/[facility] Code Phon e Number [address] [address] [facility] Partial thromboplastin time (12/25/2016 7:00 AM [employer]QU[employer]) P athologist Signature PTT 28 22 - 37 sec 12/25/2016 [facility] 7:58 AM [facility] Specimen Anatomical Collection Method Collection Time Receive d Time (Source) Location / / Volume Laterality Blood specimen 12/25/2016 7:00 AM 017 7:07 (specimen) PRESIDENT [employer]LEBRITY ACQUISTION AM [employer]IDENT [employer]LE[employer]ITY ACQUISTION Petrona Barone DO LAB - BLOOD ORDERABLES Performing Organization Address City/State/ZIP Code Phon e Number [address] INR (12/25/2016 7:00 AM [employer]) P athologist Signature INR 1.06 0.86 - 1.14 12/25/2016 [facility] 7:58 AM [facility] Specimen Anatomical Collection Method Collection Time Receive d Time (Source) Location / / Volume Laterality Blood specimen 12/25/2016 7:00 AM 017 7:07 (specimen) PRESIDENT CELEBRITY ACQUISTION AM PRESIDENT [employer]LE[employer]ITY ACQUISTION Petrona Barone DO LAB - BLOOD ORDERABLES Performing Organization Address City/State/ZIP Code Phon e Number [place] [phone] [facility] (ABNORMAL) CBC with platelets (12/25/2016 7:00 AM [employer]LE[employer] ACQUISTION) [facility] gist Method Time Signature WBC 12.7 (H) 4.0 - 11.0 12/25/2016 [facility] 10e9/L 7:51 AM [facility] RBC Count 4.05 3.8 - 5.2 12/25/2016 [facility] 10e12/L 7:51 AM [facility] Hemoglobin 11.5 (L) 11.7 - 12/25/2016 [facility] 15.7 g/dL 7:51 AM [facility] Hematocrit 33.8 (L) 35.0 - 12/25/2016 [facility] 47.0 % 7:51 AM [facility] MCV 84 78 - 100 12/25/2016 [facility] OF fl 7:51 AM [facility] MCH 28.4 26.5 - 12/25/2016 [facility] 33.0 pg 7:51 AM [facility] MCHC 34.0 31.5 - 12/25/2016 [facility] 36.5 g/dL 7:51 AM [facility] RDW 14.0 10.0 - 12/25/2016 [facility] 15.0 % 7:51 AM [facility] Platelet Count 160 150 - 450 12/25/2016 [facility] 10e9/L 7:51 AM [facility] Specimen Anatomical Collection Method Collection Time Receive d Time (Source) Location / / Volume Laterality Blood specimen 12/25/2016 7:00 AM 017 7:07 (specimen) PRESIDENT CELEBRITY ACQUISTION AM PRESIDENT [employer]LE[employer]ITY ACQUISTION Petrona Barone DO LAB - BLOOD ORDERABLES Performing Organization Address City/[facility]/ZIP Code Phon e Number [address] [address] [facility] Partial thromboplastin time (12/25/2016 12:54 AM [employer] ACQUISTION) P athologist Signature PTT 28 22 - 37 sec 12/25/2016 [facility] 1:52 AM [facility] Specimen Anatomical Collection Method Collection Time Receive d Time (Source) Location / / Volume Laterality Blood specimen 12/25/2016 12:54 7 1:10 (specimen) AM [employer]LEBRITY ACQUISTION AM PRESIDENT [employer]LEBRITY ACQUISTION Nora Torres MD LAB - BLOOD ORDERABLES Performing Organization Address City/State/ZIP Code Phon e Number [address] [address] [facility] INR (12/25/2016 12:54 AM [employer]LE[employer] ACQUISTION) P athologist Signature INR 1.11 0.86 - 1.14 12/25/2016 [facility] 1:52 AM [facility] Specimen Anatomical Collection Method Collection Time Receive d Time (Source) Location / / Volume Laterality Blood specimen 12/25/2016 12:54 7 1:10 (specimen) AM PRESIDENT [employer]LEBRITY ACQUISTION AM PRESIDENT [employer]LEBRITY ACQUISTION Nora Torres MD LAB - BLOOD ORDERABLES Performing Organization Address City/State/ZIP Code Phon e Number [address] [address] [facility] Fibrinogen activity (12/25/2016 12:54 AM PRES[employer]LEBRITY ACQUISTION) P athologist Signature Fibrinogen 338 200 - 420 12/25/2016 [facility] mg/dL 1:52 AM [facility] Specimen Anatomical Collection Method Collection Time Receive d Time (Source) Location / / Volume Laterality Blood specimen 12/25/2016 12:54 7 1:10 (specimen) AM PRESIDENT CELEBRITY ACQUISTION AM PRESIDENT [employer]LE[employer]ITY ACQUISTION Nora Torres MD LAB - BLOOD ORDERABLES Performing Organization Address City/[facility]/ZIP Code Phon e Number [address] (ABNORMAL) CBC with platelets (12/25/2016 12:54 AM [employer]LE[employer] ACQUISTION) Analysis Performed At Patho logist Time Signature [...] 100 12/25/2016 [facility] OF fl 1:42 AM [facility] MCH 28.9 26.5 [...] specimen 12/25/2016 12:54 7 1:10 (specimen) AM PRESIDENT CELEBRITY ACQUISTION AM PRESIDENT [employer]LEBRITY ACQUISTION Nora Torres MD LAB - BLOOD ORDERABLES Performing Organization Address City/[facility]/ZIP Code Phon e Number [place] [phone] [facility] (ABNORMAL) Basic metabolic panel (12/25/2016 12:54 AM PRESIDENT [employer]LEBRITY ACQUISTION) Analysis Performed At Patho logist Time Signature [...] >60 12/25/2016 [facility] mL/min/1.7 1:[address] Comment: Non GFR Calc GFR Estimate If >90 >60 mL/min/1.7m2 12/25/2016 1:49 A M [facility] Black [facility] Comment: GFR Calc Calcium 8.0 (L) 8.5 - 10.1 mg/dL 12/25/2016 1:49 AM PRESIDENT [facility]LEBRITY ACQUISTION [facility] Specimen Anatomical Collection Method Collection Time Receive d Time (Source) Location / / Volume Laterality Blood specimen 12/25/2016 12:54 7 1:10 (specimen) AM PRESIDENT CELEBRITY ACQUISTION AM PRESIDENT CELEBRITY ACQUISTION Nora Torres MD LAB - BLOOD ORDERABLES Performing Organization Address City/State/ZIP Code Phon e Number [facility] [address] [place] [address] [facility] XR Abdomen Port 1 View (12/24/2016 11:10 PM PRESIDENT [employer]LEBRITY ACQUISTION) Anatomical Region Laterality Modality Abdomen/Pelvis Computed Radiography Specimen (Source) Anatomical Location Collection Method / Collectio n Time Received Time / Laterality Volume Impressions 12/24/2016 11:52 PM [employer] ACQUISTION IMPRESSION: No radiopaque foreign objects are present in the visualized portion of the abdomen and pe lvis. CHEIKH COURTNEY MD Narrative 12/24/2016 11:52 PM [employer]LE[employer] ACQUISTION ABDOMEN SINGLE VIEW ??12/24/2016 11:10 PM HISTORY: [...] ORDER JEFFERY Blood component (12/24/2016 10:59 PM PRES[employer]LE[employer] ACQUISTION) Component Value Ref Test Analysis Performed At [facility] [employer] Range Method Time Signature Unit Number [id number] 12/24/2016 [facility] 11:06 PM [facility] Blood 5 cryoprecipitate 12/24/2016 [facility] Component units pooled 11:06 PM ID MEDICAL [facility] 00 12/24/2016 [facility] Number 11:06 PM [facility] Status of Released to care 12/24/2016 [facility]ITY O F Unit unit 11:58 PM [facility] Blood [id number] 12/24/2016 [facility] OF Product Code 11:06 PM [facility] Unit Status ISS [facility] Specimen Anatomical Collection Method Collection Time Receive d Time (Source) Location / / Volume Laterality 12/24/2016 10:59 12/24/2016 PM [employer] [employer]QU[employer] 11:04 PM [employer] ACQUISTION Nora Leyva MD LABORATORY Performing Organization Address City/State/ZIP Code Phon e Number [facility] [address] [place] [address] [facility] [address] [place] [id number] [facility] (ABNORMAL) Arterial Panel (12/24/2016 10:45 PM PRESIDENT [employer]LEBRITY ACQUISTION) [employer] Method Time Signature pH Arterial 7.35 7.35 - 12/24/2016 [facility] OF 7.45 pH 10:57 PM [facility] pCO2 Arterial 36 35 - 45 mm 12/24/2016 [facility] Hg 10:57 PM [facility] pO2 Arterial 207 (H) 80 - 105 12/24/2016 [facility] mm Hg 10:57 PM [facility] Bicarbonate 20 (L) 21 - 28 12/24/2016 [facility]ITY Arterial mmol/L 10:57 PM [facility] Base Deficit Art 4.9 mmol/L 12/24/2016 UN[facility]ERSITY O F 10:57 PM [facility] Comment: Reference range: -9.0 to 1.8 FIO2 50 12/24/2016 10:50 PM [facility] Sodium 135 133 - 144 12/24/2016 10:57 PM [facility] mmol/L [facility] Potassium 4.0 3.4 - 5.3 12/24/2016 10:57 PM [facility] mmol/L [facility] Hemoglobin 10.1 (L) 11.7 - 15.7 12/24/2016 10:57 PM UNIVERS ITY OF ID g/dL [facility] Glucose 161 (H) 70 - 99 mg/dL 12/24/2016 10:57 PM [facility]IVER S[facility] OF [facility] Calcium Ionized 5.1 4.4 - 5.2 12/24/2016 10:57 PM UNIV ERSITY OF ID Whole Blood mg/dL [facility] Specimen Anatomical Collection Method Collection Time Receive d Time (Source) Location / / Volume Laterality 12/24/2016 10:45 12/24/2016 PM [facility]QUIST[facility] 10:49 PM [employer] [employer] ACQUISTION Nora Leyva MD LAB - BLOOD ORDERABLES Performing Organization Address City/State/ZIP Code Phon e Number [facility] [address] [place] [address] [facility] Surgical pathology exam (12/24/2016 10:13 PM PRESIDENT CELEBRITY ACQUISTION) Component Value Ref Test Analysis Performed Pathologis t Range Method Time At Signature Copath Patient Name: DEANN KING Report MR#: [id number] Specimen #: [id number] Collected: 12/24/2016 Received: 12/25/2016 Reported: 12/31/2016 10:03 [...] Electronically signed out by: Moshe Isaac M.D., [facility] CLINICAL HISTORY: 36-year-old admitted at 27-1/7 weeks' [...] fundus to cervix, 8.0 cm anterior to automatic lump making machine tender ior, and 9.5 cm cornu to cornu. [...] endometrium is irregular-shaped. No masses are identified. Thread Pulling Machine Attendant sections are submitted. Summary of Sections: A1 [...] fallopian tube wi th a pin-point lumen. Thread Pulling Machine Attendant sections are submitted in ca ssette B1. [...] fallopian tube wi th a pin-point lumen. Thread Pulling Machine Attendant sections are submitted in ca ssette C1. [...] measuring 2.0 x 2.0 x 1.2 cm. Thread Pulling Machine Attendant sections are submitted as follows: Summary of [...] The section submitted as possible thrombus at [facility] shows a remote retroplacental hematoma. CPT Codes: A: 47996-FS4, 33053-QPG, 21786-OYH B: 02968-CG9 C: 31671-JE6 D: 14556-IZ7 TESTING LAB LOCATION: [facility], [address] [place] [id number] COLLECTION SITE: Client: [facility] Location: [id number] (B) Specimen (Source) Anatomical Collection Method Collection Time Re ceived Time Location / / Volume Laterality Tissue specimen UTERUS AND CERVIX, 12/24/2016 10:13 (specimen) CS / Unknown PM [employer] ACQUISTION Tissue specimen STRUCTURE OF RIGHT 12/24/2016 10:14 (specimen) FALLOPIAN TUBE / PM PRESIDENT CELEBRITY ACQUISTION Unknown Tissue specimen STRUCTURE OF LEFT 12/24/2016 10:14 (specimen) FALLOPIAN TUBE / PM PRESIDENT CELEBRITY ACQUISTION Unknown So Nunez MD LAB - BEAKER AP Performing Organization Address City/[facility]/ZIP Code Phon e Number [facility] Partial thromboplastin time (12/24/2016 9:50 PM PRESIDENT CELEBRITY ACQUISTION) P athologist Signature PTT 33 22 - 37 sec 12/24/2016 [facility] 10:05 PM [facility] Specimen Anatomical Collection Method Collection Time Receive d Time (Source) Location / / Volume Laterality 12/24/2016 9:50 PM 7 9:52 PRESIDENT CELEBRITY ACQUISTION PM PRESIDENT CELEBRITY ACQUISTION Nora Leyva MD LAB - BLOOD ORDERABLES Performing Organization Address City/[facility]/ZIP Code Phon e Number [address] [address] [facility] (ABNORMAL) INR (12/24/2016 9:50 PM PRESIDENT CELEBRITY ACQUISTION) P athologist Signature INR 1.50 (H) 0.86 - 1.14 12/24/2016 [facility] 10:05 PM [facility] Specimen Anatomical Collection Method Collection Time Receive d Time (Source) Location / / Volume Laterality 12/24/2016 9:50 PM 7 9:52 PRESIDENT CELEBRITY ACQUISTION PM PRESIDENT CELEBRITY ACQUISTION Nora Leyva MD LAB - BLOOD ORDERABLES Performing Organization Address City/State/ZIP Code Phon e Number [address] [address] [facility] (ABNORMAL) Fibrinogen activity (12/24/2016 9:50 PM PRESIDENT CELEBRITY ACQUISTION) P athologist Signature Fibrinogen 189 (L) 200 - 420 12/24/2016 [facility] mg/dL 10:05 PM [facility] Specimen Anatomical Collection Method Collection Time Receive d Time (Source) Location / / Volume Laterality 12/24/2016 9:50 PM 7 9:52 PRESIDENT CELEBRITY ACQUISTION PM PRESIDENT CELEBRITY ACQUISTION Nora Leyva MD LAB - BLOOD ORDERABLES Performing Organization Address City/State/ZIP Code Phon e Number [address] [address] [facility] (ABNORMAL) CBC with platelets (12/24/2016 9:50 PM PRESIDENT CELEBRITY ACQUISTION) Patholo gist Method Time Signature WBC 10.3 [...] Volume Laterality 12/24/2016 9:50 PM 7 9:52 PRESIDENT CELEBRITY ACQUISTION PM PRESIDENT CELEBRITY ACQUISTION Nora Leyva MD LAB - BLOOD ORDERABLES Performing Organization Address City/State/ZIP Code Phon e Number [facility] [address] [place] [address] [facility] (ABNORMAL) Arterial Panel (12/24/2016 9:50 PM PRESIDENT CELEBRITY ACQUISTION) [facility] gist Method Time Signature pH Arterial 7.31 (L) 7.35 - 12/24/2016 [facility] OF 7.45 pH 9:58 PM [facility] [...] to 1.8 FIO2 50 12/24/2016 9:54 PM [facility] Sodium 137 133 - 144 12/24/2016 9:58 PM [facility] mmol/L [facility] Potassium 3.7 3.4 - 5.3 12/24/2016 9:58 PM [facility] mmol/L [facility] Hemoglobin 7.5 (L) 11.7 - 15.7 12/24/2016 9:58 PM UNIVERSI TY OF ID g/dL [facility] Glucose 155 (H) 70 - 99 mg/dL 12/24/2016 9:58 PM UNIVERS ITY OF [facility] Calcium Ionized 4.6 4.4 - 5.2 12/24/2016 9:58 PM UNIVE RSITY OF ID Whole Blood mg/dL [facility] Specimen Anatomical Collection Method Collection Time Receive d Time (Source) Location / / Volume Laterality 12/24/2016 9:50 PM 7 9:52 PRESIDENT CELEBRITY ACQUISTION PM PRESIDENT CELEBRITY ACQUISTION Nora Leyva MD LAB - BLOOD ORDERABLES Performing Organization Address City/[facility]/ZIP Code Phon e Number [facility] [address] [place] [address] [facility] (ABNORMAL) Arterial Panel (12/24/2016 9:20 PM PRESIDENT CELEBRITY ACQUISTION) [facility] Method Time Signature pH Arterial 7.31 [...] to 1.8 FIO2 50% 12/24/2016 9:26 PM [facility] Sodium 136 133 - 144 12/24/2016 9:28 PM [facility] mmol/L [facility] Potassium 3.9 3.4 - 5.3 12/24/2016 9:28 PM [facility] mmol/L [facility] Hemoglobin 8.7 (L) 11.7 - 15.7 12/24/2016 9:28 PM UNIVERSI TY OF ID g/dL [facility] Glucose 165 (H) 70 - 99 mg/dL 12/24/2016 9:28 PM [facility] OF [facility] Calcium Ionized 4.4 4.4 - 5.2 12/24/2016 9:28 PM UNIVE RSITY OF ID Whole Blood mg/dL [facility] Specimen Anatomical Collection Method Collection Time Receive d Time (Source) Location / / Volume Laterality 12/24/2016 9:20 PM 7 9:25 PRESIDENT CELEBRITY ACQUISTION PM PRESIDENT CELEBRITY ACQUISTION Nora Leyva MD LAB - BLOOD ORDERABLES Performing Organization Address City/[facility]/ZIP Code Phon e Number [facility] [address] [place] [address] [facility] Blood component (12/24/2016 8:45 PM PRESIDENT CELEBRITY ACQUISTION) Patholo gist Method Time Signature Unit Number [id number] 12/24/2016 [facility] 7 10:07 PM [facility] CELEBRITY ACQUISTION [facility] Blood PlateletPher 12/24/2016 [facility] OF Component esis,LeukoRe 10:07 PM [facility] [place] [facility] [place] ([facility] B[facility] Division 00 12/24/2016 [facility] OF Number 10:07 PM PRESIDENT CELEBRITY ACQUISTION [facility] Status of Released to 12/24/2016 [facility] OF Unit care unit 11:58 PM PRESIDENT CELEBRITY ACQUISTION [facility] Blood Product [id number] 12/24/2016 [facility] OF Code 10:07 PM PRESIDENT CELEBRITY ACQUISTION [facility] Unit Status ISS [facility] Specimen Anatomical Collection Method Collection Time Receive d Time (Source) Location / / Volume Laterality 12/24/2016 8:45 PM 7 8:50 PRESIDENT CELEBRITY ACQUISTION PM PRESIDENT CELEBRITY ACQUISTION Nora Leyva MD LABORATORY Performing Organization Address City/[facility] Code Phon e Number [facility] [address] [place], [place] [phone] [place] [phone] [place] [address] Blood component (12/24/2016 8:45 PM PRESIDENT CELEBRITY ACQUISTION) Patholo gist Method Time Signature Unit Number [id number] 12/24/2016 [facility] OF 2 8:52 PM PRESIDENT CELEBRITY ACQUISTION [facility] Blood PlateletPher 12/24/2016 [facility] OF Component esis,LeukoRe 8:52 PM [facility] [place] [facility] Division 00 12/24/2016 [facility] OF Number 8:52 PM PRESIDENT CELEBRITY ACQUISTION [place] [facility] Status of Released to 12/24/2016 [facility]ERSITY OF Unit care unit 11:58 PM PRESIDENT CELEBRITY ACQUISTION [facility] Blood Product [id number] 12/24/2016 [facility] OF Code 8:52 PM PRESIDENT CELEBRITY ACQUISTION [facility] Unit Status ISS [facility] Specimen Anatomical Collection Method Collection Time Receive d Time (Source) Location / / Volume Laterality 12/24/2016 8:45 PM 7 8:50 PRESIDENT CELEBRITY ACQUISTION PM [facility] ACQUISTION Nora Leyva MD LABORATORY Performing Organization Address City/[facility]/ZIP Code Phon e Number [facility] [address] [place] [address] [address] [facility] Platelets prepare order unit (12/24/2016 8:45 PM PRES[facility]LEBRITY ACQUISTION) [facility] gist Method Time Signature Blood PLT Pheresis 12/24/2016 [facility] 8:50 PM PRESIDENT CELEBRITY ACQUISTION [facility] Units Ordered 2 12/24/2016 UNIVERSITY 10:07 PM [facility] Specimen Anatomical Collection Method Collection Time Receive d Time (Source) Location / / Volume Laterality 12/24/2016 8:45 PM 7 8:50 PRESIDENT CELEBRITY ACQUISTION PM [facility]LE[facility] ACQUISTION Nora Leyva MD BLOOD BANK PRODUCT ORDERABLE S Performing Organization Address City/[facility]/ZIP Code Phon e Number [address] [address] [facility] Partial thromboplastin time (12/24/2016 8:44 PM PRESIDENT [employer]LEBRITY ACQUISTION) athologist Signature PTT 30 22 - 37 sec 12/24/2016 [facility] 9:05 PM [facility] Specimen Anatomical Collection Method Collection Time Receive d Time (Source) Location / / Volume Laterality 12/24/2016 8:44 PM 7 8:51 PRESIDENT CELEBRITY ACQUISTION PM [facility]IDENT [facility]LEBRITY ACQUISTION Nora Leyva MD LAB - BLOOD ORDERABLES Performing Organization Address City/State/ZIP Code Phon e Number [address] [address] [facility] (ABNORMAL) INR (12/24/2016 8:44 PM [employer]LE[employer] ACQUISTION) athologist Signature INR 1.16 (H) 0.86 - 1.14 12/24/2016 [facility] 9:05 PM [facility] Specimen Anatomical Collection Method Collection Time Receive d Time (Source) Location / / Volume Laterality 12/24/2016 8:44 PM 7 8:51 PRESIDENT CELEBRITY ACQUISTION PM PRESIDENT CELEBRITY ACQUISTION Nora Leyva MD LAB - BLOOD ORDERABLES Performing Organization Address City/State/ZIP Code Phon e Number [address] [address] [facility] Fibrinogen activity (12/24/2016 8:44 PM PRESIDENT [employer]LEBRITY ACQUISTION) P athologist Signature Fibrinogen 328 200 - 420 12/24/2016 [facility] mg/dL 9:05 PM [facility] Specimen Anatomical Collection Method Collection Time Receive d Time (Source) Location / / Volume Laterality 12/24/2016 8:44 PM 7 8:51 PRESIDENT CELEBRITY ACQUISTION PM PRESIDENT CELEBRITY ACQUISTION Nora Leyva MD LAB - BLOOD ORDERABLES Performing Organization Address City/[facility]/ZIP Code Phon e Number [place] [phone] [place] [address] (ABNORMAL) CBC with platelets (12/24/2016 8:44 PM PRESIDENT CELEBRITY ACQUISTION) [facility] gist Method Time Signature WBC 5.8 [...] Volume Laterality 12/24/2016 8:44 PM 7 8:51 PRESIDENT CELEBRITY ACQUISTION PM PRESIDENT CELEBRITY ACQUISTION Nora Leyva MD LAB - BLOOD ORDERABLES Performing Organization Address City/[facility] Code Phon e Number [address] [address] [facility] (ABNORMAL) Arterial Panel (12/24/2016 8:44 PM PRESIDENT CELEBRITY ACQUISTION) [facility] Method Time Signature pH Arterial 7.29 (L) 7.35 - 12/24/2016 [facility] OF 7.45 pH 8:56 PM [facility] pCO2 Arterial 41 35 - 45 12/24/2016 [facility] mm Hg 8:56 PM [facility] pO2 Arterial 355 (H) 80 - 105 12/24/2016 [facility] mm Hg 8:56 PM [facility] Bicarbonate 20 (L) 21 - 28 12/24/2016 [facility] OF Arterial mmol/L 8:56 PM [facility] Base Deficit Art 6.1 mmol/L 12/24/2016 UN[facility]ERSITY O F 8:56 PM [facility] Comment: Reference range: -9.0 to 1.8 FIO2 100% 12/24/2016 8:53 PM [facility] Sodium 137 133 - 144 12/24/2016 8:56 PM [facility] mmol/L [facility] Potassium 3.6 3.4 - 5.3 12/24/2016 8:56 PM [facility] mmol/L [facility] Hemoglobin 7.6 (L) 11.7 - 15.7 12/24/2016 8:56 PM [facility] TY OF ID g/dL [facility] Glucose 160 (H) 70 - 99 mg/dL 12/24/2016 8:56 PM [facility] IT[facility] Calcium Ionized 4.1 (L) 4.4 - 5.2 12/24/2016 8:56 PM UNIVE RSITY [facility] Whole Blood mg/dL [facility] T BANK Specimen Anatomical Collection Method Collection Time Receive d Time (Source) Location / / Volume Laterality 12/24/2016 8:44 PM 7 8:51 PRESIDENT CELEBRITY ACQUISTION PM PRESIDENT CELEBRITY ACQUISTION Nora Leyva MD LAB - BLOOD ORDERABLES Performing Organization Address City/State/ZIP Code Phon e Number [facility] [address] [place] [address] [facility] (ABNORMAL) Arterial Panel (12/24/2016 8:25 PM PRESIDENT CELEBRITY ACQUISTION) [facility] Method Time Signature pH Arterial 7.30 (L) 7.35 - 12/24/2016 [facility] OF 7.45 pH 8:33 PM [facility] pCO2 Arterial 40 35 - 45 12/24/2016 [facility] mm Hg 8:33 PM [facility] pO2 Arterial 195 (H) 80 - 105 12/24/2016 [facility] mm Hg 8:33 PM [facility] Bicarbonate 19 (L) 21 - 28 12/24/2016 UNIVERSITY Arterial mmol/L 8:33 PM [facility] Base Deficit Art 6.6 mmol/L 12/24/2016 UN[facility]ITY O F 8:33 PM [facility] Comment: Reference range: -9.0 to 1.8 FIO2 100% 12/24/2016 8:29 PM [facility] Sodium 135 133 - 144 12/24/2016 8:33 PM [facility] mmol/L [facility] Potassium 4.1 3.4 - 5.3 12/24/2016 8:33 PM [facility] mmol/L [facility] Hemoglobin 8.0 (L) 11.7 - 15.7 12/24/2016 8:33 PM [facility] OF ID g/dL [facility] Glucose 136 (H) 70 - 99 mg/dL 12/24/2016 8:33 PM [facility]ERS ITY OF [facility] Calcium Ionized 4.3 (L) 4.4 - 5.2 12/24/2016 8:33 PM UNIVE RS[facility] Whole Blood mg/dL [facility] BANK Specimen Anatomical Collection Method Collection Time Receive d Time (Source) Location / / Volume Laterality 12/24/2016 8:25 PM 7 8:29 PRESIDENT CELEBRITY ACQUISTION PM PRESIDENT CELEBRITY ACQUISTION Nora Leyva MD LAB - BLOOD ORDERABLES Performing Organization Address City/State/ZIP Code Phon e Number [facility] [address] [place] [address] [facility] Blood component (12/24/2016 7:25 PM PRESIDENT CELEBRITY ACQUISTION) [facility] Method Time Signature Unit Number [id number] 12/24/2016 [facility] OF 10:10 PM [facility] Blood Plasma, 12/24/2016 [facility] OF Component Thawed 10:10 PM [facility] 00 12/24/2016 [facility] OF Number 10:10 PM [facility]LEBRITY ACQUISTION [facility] Status of No longer 12/24/2016 [facility] OF Unit available 11:49 PM PRESIDENT CELEBRITY ACQUISTION [facility] 12/24/2016 [facility] Blood Product [id number] 12/24/2016 [facility] OF Code 10:10 PM PRESIDENT CELEBRITY ACQUISTION [facility] Unit Status RET [facility] Specimen Anatomical Collection Method Collection Time Receive d Time (Source) Location / / Volume Laterality 12/24/2016 7:25 PM 7 7:30 PRESIDENT CELEBRITY ACQUISTION PM PRESIDENT CELEBRITY ACQUISTION Nora Leyva MD LAB - BLOOD BANK PRODUCT ORD ER Performing Organization Address City/[facility]/ZIP Code Phon e Number [address] [address] [facility] Blood component (12/24/2016 7:25 PM PRESIDENT CELEBRITY ACQUISTION) [facility] [employer] Method Time Signature Unit Number [id number] 12/24/2016 [facility] OF 10:10 PM PRESIDENT CELEBRITY ACQUISTION [facility] Blood Plasma, 12/24/2016 [facility] OF Component Thawed 10:10 PM PRESIDENT CELEBRITY ACQUISTION [facility] Division 00 12/24/2016 [facility] OF Number 10:10 PM PRESIDENT CELEBRITY ACQUISTION [facility] Status of No longer 12/24/2016 [facility] OF Unit available 11:48 PM PRESIDENT CELEBRITY ACQUISTION [facility] 12/24/2016 [facility] 2348 BANK Blood Product [id number] 12/24/2016 [facility] OF Code 10:10 PM PRESIDENT CELEBRITY ACQUISTION [facility] Unit Status RET [facility] Specimen Anatomical Collection Method Collection Time Receive d Time (Source) Location / / Volume Laterality 12/24/2016 7:25 PM 7 7:30 PRESIDENT CELEBRITY ACQUISTION PM PRESIDENT CELEBRITY ACQUISTION Nora Leyva MD LAB - BLOOD BANK PRODUCT ORD ER Performing Organization Address City/State/ZIP Code Phon e Number [facility] [address] [place] [address] [facility] Blood component (12/24/2016 7:25 PM PRESIDENT CELEBRITY ACQUISTION) [facility] [employer] Method Time Signature Unit Number [id number] 12/24/2016 [facility] OF 9 9:03 PM PRES[facility] CELEBRITY ACQUISTION [facility] Blood Plasma, 12/24/2016 [facility] OF Component Thawed 9:03 PM PRESIDENT CELEBRITY ACQUISTION [facility] Division 00 12/24/2016 [facility] OF Number 9:03 PM PRES[facility] CELEBRITY ACQUISTION [facility] Status of Released to 12/24/2016 [facility] OF Unit care unit 11:58 PM PRESIDENT CELEBRITY ACQUISTION [facility] Blood Product [id number] 12/24/2016 [facility] OF Code 9:03 PM PRESIDENT CELEBRITY ACQUISTION [facility] Unit Status ISS [facility] Specimen Anatomical Collection Method Collection Time Receive d Time (Source) Location / / Volume Laterality 12/24/2016 7:25 PM 7 7:30 PRESIDENT CELEBRITY ACQUISTION PM PRESIDENT CELEBRITY ACQUISTION Nora Leyva MD LABORATORY Performing Organization Address City/State/ZIP Code Phon e Number [facility] [address] [place] [address] [facility] [address] [place] [address] [facility] Blood component (12/24/2016 7:25 PM PRESIDENT CELEBRITY ACQUISTION) [employer] Method Time Signature Unit Number [id number] 12/24/2016 [facility] OF 7 9:03 PM PRESIDENT CELEBRITY ACQUISTION [facility] Blood Plasma, 12/24/2016 [facility] OF Component Thawed 9:03 PM PRESIDENT CELEBRITY ACQUISTION [facility] Division 00 12/24/2016 [facility] OF Number 9:03 PM PRESIDENT CELEBRITY ACQUISTION [facility] Status of Released to 12/24/2016 [facility] OF Unit care unit 11:58 PM PRESIDENT CELEBRITY ACQUISTION [facility] Blood Product [id number] 12/24/2016 [facility] OF Code 9:03 PM [facility] Unit Status ISS [facility] Specimen Anatomical Collection Method Collection Time Receive d Time (Source) Location / / Volume Laterality 12/24/2016 7:25 PM 7 7:30 PRESIDENT CELEBRITY ACQUISTION PM PRESIDENT CELEBRITY ACQUISTION Nora Leyva MD LABORATORY Performing Organization Address City/State/ZIP Code Phon e Number [facility] [address] [place] [address] [facility] [address] [place] [address] WEST [facility]ANK Blood component (12/24/2016 7:25 PM PRESIDENT CELEBRITY ACQUISTION) [employer] Method Time Signature Unit Number [id number] 12/24/2016 [facility] OF 8:18 PM [facility] BANK Blood Apheresis 12/24/2016 UN[facility]ITY OF Component Plasma Thawed 8:18 PM PRESIDENT CELEBRITY ACQUISTION [facility] Division 00 12/24/2016 [facility] OF Number 8:18 PM PRESIDENT CELEBRITY ACQUISTION [facility] Status of Released to 12/24/2016 [facility] OF Unit care unit 11:58 PM PRESIDENT CELEBRITY ACQUISTION [facility] Blood Product [id number] 12/24/2016 [facility] OF Code 8:18 PM PRESIDENT CELEBRITY ACQUISTION [facility] Unit Status ISS [facility] Specimen Anatomical Collection Method Collection Time Receive d Time (Source) Location / / Volume Laterality 12/24/2016 7:25 PM 7 7:30 PRESIDENT CELEBRITY ACQUISTION PM PRESIDENT CELEBRITY ACQUISTION Nora Leyva MD LABORATORY Performing Organization Address City/State/ZIP Code Phon e Number [facility] [address] [place] [address] [place] [id number] [place] [address] [facility] Blood component (12/24/2016 7:25 PM PRESIDENT CELEBRITY ACQUISTION) [facility] [employer] Method Time Signature Unit Number [id number] 12/24/2016 [facility] OF 5 8:18 PM PRESIDENT CELEBRITY ACQUISTION [facility] Blood Plasma, 12/24/2016 [facility]ITY OF Component Thawed 8:18 PM PRESIDENT CELEBRITY ACQUISTION [facility] Division 00 12/24/2016 [facility] OF Number 8:18 PM PRESIDENT CELEBRITY ACQUISTION [facility] Status of Released to 12/24/2016 UN[facility]ERSITY OF Unit care unit 11:58 PM PRESIDENT CELEBRITY ACQUISTION [facility] Blood Product [id number] 12/24/2016 [facility] OF Code 8:18 PM PRESIDENT CELEBRITY ACQUISTION [facility] Unit Status ISS [facility] Specimen Anatomical Collection Method Collection Time Receive d Time (Source) Location / / Volume Laterality 12/24/2016 7:25 PM 7 7:30 PRESIDENT CELEBRITY ACQUISTION PM PRESIDENT CELEBRITY ACQUISTION Nora Leyva MD LABORATORY Performing Organization Address City/State/ZIP Code Phon e Number [facility] [address] [place] [address] [place] [id number] [place] [address] WEST BANK Blood component (12/24/2016 7:25 PM PRESIDENT CELEBRITY ACQUISTION) [facility] [employer] Method Time Signature Unit Number [id number] 12/24/2016 UN[facility]ERSITY OF 3 8:18 PM PRESIDENT CELEBRITY ACQUISTION [facility] Blood Plasma, 12/24/2016 UN[facility]ERSITY OF Component Thawed 8:18 PM PRESIDENT CELEBRITY ACQUISTION [facility] BANK Division 00 12/24/2016 UN[facility]ERSITY OF Number 8:18 PM PRESIDENT CELEBRITY ACQUISTION [facility] Status of Released to 12/24/2016 UN[facility]ERSITY OF Unit care unit 11:58 PM PRESIDENT CELEBRITY ACQUISTION [facility] Blood Product [id number] 12/24/2016 [facility]ERSITY OF Code 8:18 PM PRESIDENT CELEBRITY ACQUISTION [facility] Unit Status ISS [facility] Specimen Anatomical Collection Method Collection Time Receive d Time (Source) Location / / Volume Laterality 12/24/2016 7:25 PM 7 7:30 PRESIDENT CELEBRITY ACQUISTION PM PRESIDENT CELEBRITY ACQUISTION Nora Leyva MD LABORATORY Performing Organization Address City/State/ZIP Code Phon e Number [facility] [address] [place] [address] [address] [facility] Blood component (12/24/2016 7:25 PM PRESIDENT CELEBRITY ACQUISTION) Patholo gist Method Time Signature Unit Number [id number] 12/24/2016 UN[facility]ERSITY OF 9 8:18 PM PRESIDENT CELEBRITY ACQUISTION [facility] Blood Plasma, 12/24/2016 UN[facility]ERSITY OF Component Thawed 8:18 PM PRESIDENT CELEBRITY ACQUISTION [facility] Division 00 12/24/2016 [facility] OF Number 8:18 PM PRESIDENT CELEBRITY ACQUISTION [facility] Status of Released to 12/24/2016 [facility]ITY OF Unit care unit 11:58 PM PRESIDENT CELEBRITY ACQUISTION [facility] Blood Product [id number] 12/24/2016 [facility] OF Code 8:18 PM PRESIDENT CELEBRITY ACQUISTION [facility] Unit Status ISS [facility] Specimen Anatomical Collection Method Collection Time Receive d Time (Source) Location / / Volume Laterality 12/24/2016 7:25 PM 7 7:30 PRESIDENT CELEBRITY ACQUISTION PM PRESIDENT CELEBRITY ACQUISTION Nora Leyva MD LABORATORY Performing Organization Address City/State/ZIP Code Phon e Number [facility] [address] [place] [address] [address] [facility] Plasma prepare order unit (12/24/2016 7:25 PM PRESIDENT CELEBRITY ACQUISTION) P athologist Signature Blood Plasma 12/24/2016 UN[facility]ERSITY OF Component Type 7:31 PM PRESIDENT CELEBRITY ACQUISTION [facility] Units Ordered 8 12/24/2016 UNIVERSITY OF 10:10 PM [facility] Specimen Anatomical Collection Method Collection Time Receive d Time (Source) Location / / Volume Laterality 12/24/2016 7:25 PM 7 7:30 PRESIDENT CELEBRITY ACQUISTION PM PRESIDENT CELEBRITY ACQUISTION Nora Leyva MD BLOOD BANK PRODUCT ORDERABLE S Performing Organization Address City/State/ZIP Code Phon e Number [facility] [address] [place] [address] [facility] (ABNORMAL) CBC with platelets differential (12/24/2016 7:06 PM PRESIDENT CELEBRITY ACQUISTION) [facility] gist Method Time Signature WBC 10.4 4.0 - 12/24/2016 UN[facility]ERSITY OF 11.0 7:11 PM [facility] 10e9/L [facility] RBC Count 2.99 (L) 3.8 - [...] 12/24/2016 UN[facility]ERSITY OF Nucleated RBC 7:11 PM [facility] Specimen Anatomical Collection Method Collection Time Receive d Time (Source) Location / / Volume Laterality Blood specimen 12/24/2016 7:06 PM 017 7:07 (specimen) PRESIDENT CELEBRITY ACQUISTION PM PRESIDENT CELEBRITY ACQUISTION Kayla Davidson MD LAB - BLOOD ORDERABLES Performing Organization Address City/State/ZIP Code Phon e Number [facility] [address] [place] [address] [facility] Urine Culture Aerobic Bacterial (12/24/2016 7:50 AM PRESIDENT CELEBRITY ACQUISTION) Component Value Ref Test Analysis Performed At [facility] Range Method Time Signature Specimen Midstream Urine INFECTIOUS Description DISEASE DIAGNOSTIC LABORATORY Special Specimen received 12/24/2016 UN[facility]ITY [facility] in preservative 11:03 AM [facility] Culture Micro <10,000 colonies/mL 12/25/2016 INFEC TIOUS mixed urogenital evelina 7:35 AM [facility]QUIST[facility]EA SE Susceptibility testing not routinely done DIAGNOSTIC LABORATORY Specimen (Source) Anatomical Collection Method Collection Time Re ceived Time Location / / Volume Laterality Examination of 12/24/2016 7:50 12/24/2016 8:46 midstream urine AM PRESIDENT CELEBRITY ACQUISTION AM PRESIDENT CELEBRITY ACQUISTION specimen (procedure) Nora Leyva MD LAB - MICRO GENERAL ORDERABL ES Performing Organization Address City/State/ZIP Code Phon e Number INFECTIOUS DISEASES [address] [place] [address] DIAGNOSTIC LABORATORY, [facility] INFECTIOUS DISEASE [address] [place] [address], [facility] DIAGNOSTIC LABORATORY [address] [address], [facility] (ABNORMAL) UA with Microscopic reflex to Culture (12/24/2016 7:50 AM PRESIDENT CELEBRITY ACQUISTION) [facility] gist Method Time Signature Color Urine Yellow 12/24/2016 UNIVERSITY OF 8:35 AM [facility] Appearance Urine Clear 12/24/2016 UNIVERSITY O F 8:35 AM [facility] Glucose Urine Negative NEG^Negat 12/24/2016 UNIVERSITY OF [place] mg/dL 8:35 AM [facility] Bilirubin Urine Negative NEG^Negat 12/24/2016 UN[facility]ERSITY OF [place] 8:35 AM [facility] Ketones Urine Negative NEG^Negat 12/24/2016 [facility]ITY OF [place] mg/dL 8:35 AM [facility] Specific [place] 1.013 1.003 - 12/24/2016 UNIVERSITY O F [...] OF Epithelial /HPF /HPF 8:37 AM [facility] Transitional Epi <1 0 - 1 12/24/2016 UNIVERSITY O F /HPF 8:37 AM [facility] Specimen (Source) Anatomical Collection Method Collection Time Re ceived Time Location / / Volume Laterality Examination of URINE SPECIMEN 12/24/2016 7:50 12/25/19 17 8:05 midstream urine OBTAINED BY CLEAN AM PRESIDENT CELEBRITY ACQUISTION AM PRES[facility]LEBRITY ACQUISTION specimen CATCH PROCEDURE / (procedure) Unknown Petrona Barone DO LAB - URINE ORDERABLES Performing Organization Address City/State/ZIP Code Phon e Number [facility] [address] [place], [place] [id number] [place] [address] (ABNORMAL) Wet prep (12/23/2016 11:53 PM PRESIDENT CELEBRITY ACQUISTION) Component Value Ref Test Analysis Performed At [facility] Range Method Time Signature Specimen Vagina [facility] Wet Prep No motile 12/24/2016 UN[facility]ERSITY OF Trichomonas 12:21 AM [facility] seen [facility] Wet Prep Rare 12/24/2016 UN[facility]ERSITY OF Yeast seen 12:21 AM [facility] (A) [facility] Wet Prep Moderate 12/24/2016 UNIVERSITY OF PMNs seen 12:21 AM [facility] Wet Prep No clue cells 12/24/2016 [facility]ITY OF seen 12:21 AM [facility] Specimen Anatomical Collection Method Collection Time Receive d Time (Source) Location / / Volume Laterality Specimen from 12/23/2016 11:53 12/24/2016 vagina PM [facility]LEBRITY ACQUISTION 12:10 AM [facility]LEBRITY ACQUISTION (specimen) Petrona Barone DO LAB - MICRO GENERAL ORDERABL ES Performing Organization Address City/State/ZIP Code Phon e Number [address] [address] [facility] Maternal BPP Single (12/23/2016 8:37 AM PRESIDENT CELEBRITY ACQUISTION) Anatomical Region Laterality Modality Ultrasound Specimen (Source) Anatomical Collection Method Collection Time Re ceived Time Location / / Volume Laterality 12/23/2016 8:05 AM [facility] Impressions 12/23/2016 11:10 AM [facility]LE[facility] ACQUISTION IMPRESSION 1) Intrauterine at 29 3/7 week s gestational age. 2) The BPP is reassuring. 3) The amniotic fluid volume low consist ent with known PPROM. 4) There is a complete posterior/lateral placenta previa. Narrative 12/23/2016 11:10 AM [facility]QU[facility] BPP Pat. Name: DEANN KING Study Date: 8:05am Pat. NO: [id number] Referring ??: CHIRST LOZADA Site: [facility] President Financial Institution: Jay Lu : 1980 Age: 36 INDICATION Premature Rupture of Membranes ( PPROM) Complete previa. METHOD [facility] ANTEPARTUM inpatient exam, Transabd ominal ultrasound examination. [...] Pat. Name:Clovis KINGjames Date:12/23 8:05am Pat. NO: [id number] :CHRIST BHAT ON [facility]Yesenia Sen RDMS :1980Age:36 INDICATION Premature Rupture of Membranes ( PPROM) Complete previa. METHOD [facility] ANTEPARTUM inpatient exam, Transabd ominal ultrasound examination. [...] complete posterior/lateral placenta previa. Lashawn Patel MD [facility] ORDERABLES Blood component (12/23/2016 6:54 AM PRESIDENT CELEBRITY ACQUISTION) [facility] Method Time Signature Unit Number [id number] 12/24/2016 UNIVERSITY OF 9:49 PM PRESIDENT CELEBRITY ACQUISTION [facility] Blood Red Blood 12/24/2016 [facility] Cells 9:49 PM [facility] BANK Division 00 12/24/2016 UN[facility]ERSITY OF Number 9:49 PM PRESIDENT CELEBRITY ACQUISTION [facility] Status of Released to 12/24/2016 UNIVERSITY OF Unit care unit 11:58 PM PRESIDENT CELEBRITY ACQUISTION [facility] Blood Product [id number] 12/24/2016 UN[facility]ERSITY OF Code 9:49 PM PRESIDENT CELEBRITY ACQUISTION [facility] Unit Status ISS [facility] Specimen Anatomical Collection Method Collection Time Receive d Time (Source) Location / / Volume Laterality 12/23/2016 6:54 AM 7 6:55 PRESIDENT CELEBRITY ACQUISTION AM PRESIDENT CELEBRITY ACQUISTION Nora Vince [employer] LABORATORY Performing Organization Address City/State/ZIP Code Phon e Number [facility] [address] [place] [address] [facility] [address] [place] [address] WEST BANK Blood component (12/23/2016 6:54 AM PRESIDENT CELEBRITY ACQUISTION) [employer] Method Time Signature Unit Number [id number] 12/24/2016 UNIVERSITY OF 9:49 PM PRESIDENT CELEBRITY ACQUISTION [facility] B[facility] Blood Red Blood 12/24/2016 [facility]ITY OF Component Cells 9:49 PM PRESIDENT CELEBRITY ACQUISTION [facility] Leukocyte [facility] Reduced BANK Division 00 12/24/2016 [facility] OF Number 9:49 PM [facility] B[facility] Status of No longer 12/24/2016 [facility] OF Unit available 11:50 PM [facility] 12/24/2016 [place] [id number] BANK Blood Product [id number] 12/24/2016 [facility] OF Code 9:49 PM PRESIDENT CELEBRITY ACQUISTION [facility] B[facility] Unit Status RET [facility] BANK Specimen Anatomical Collection Method Collection Time Receive d Time (Source) Location / / Volume Laterality 12/23/2016 6:54 AM 7 6:55 PRESIDENT CELEBRITY ACQUISTION AM PRESIDENT CELEBRITY ACQUISTION Nora LMN-1 LABORATORY Performing Organization Address City/State/ZIP Code Phon e Number [facility] [address] [place] [address] WEST BANK Blood component (12/23/2016 6:54 AM PRESIDENT CELEBRITY ACQUISTION) [employer] Method Time Signature Unit Number [id number] 12/24/2016 [facility]ITY OF 9:49 PM PRESIDENT CELEBRITY ACQUISTION [facility] B[facility] Blood Red Blood 12/24/2016 [facility]ITY OF Component Cells 9:49 PM PRESIDENT CELEBRITY ACQUISTION [facility] Leukocyte [facility] Reduced BANK Division 00 12/24/2016 [facility] Number 9:49 PM PRESIDENT CELEBRITY ACQUISTION [facility] B[facility] Status of Released to 12/24/2016 [facility] OF Unit care unit 11:58 PM PRESIDENT CELEBRITY ACQUISTION [facility] Blood Product [id number] 12/24/2016 [facility] OF Code 9:49 PM PRESIDENT CELEBRITY ACQUISTION [facility] B[facility] Unit Status [facility] Specimen Anatomical Collection Method Collection Time Receive d Time (Source) Location / / Volume Laterality 12/23/2016 6:54 AM 7 6:55 PRESIDENT CELEBRITY ACQUISTION AM PRESIDENT CELEBRITY ACQUISTION [facility] LAB - BLOOD BANK PRODUCT ORD ER Performing Organization Address City/[facility] Phon e Number [facility] [address] [place] [address] [address] WEST BANK Blood component (12/23/2016 6:54 AM PRESIDENT CELEBRITY ACQUISTION) [facility] [employer] Method Time Signature Unit Number [id number] 12/24/2016 [facility]ITY OF 9:49 PM PRESIDENT CELEBRITY ACQUISTION [facility] BANK Blood Red Blood 12/24/2016 [facility] OF Component Cells 9:49 PM PRESIDENT CELEBRITY ACQUISTION [facility] WEST Reduced BANK Division 00 12/24/2016 [facility] OF Number 9:49 PM PRESIDENT CELEBRITY ACQUISTION [facility] B[facility] Status of Released to 12/24/2016 [facility] OF Unit care unit 11:58 PM PRESIDENT CELEBRITY ACQUISTION [facility] Blood Product [id number] 12/24/2016 [facility] OF Code 9:49 PM PRESIDENT CELEBRITY ACQUISTION [facility] B[facility] Unit Status ISS [facility] Specimen Anatomical Collection Method Collection Time Receive d Time (Source) Location / / Volume Laterality 12/23/2016 6:54 AM 7 6:55 PRESIDENT CELEBRITY ACQUISTION AM PRESIDENT CELEBRITY ACQUISTION [facility] LAB - BLOOD BANK PRODUCT ORD ER Performing Organization Address City/[facility] Phon e Number [facility] [address] [place] [address] [address] WEST BANK Blood component (12/23/2016 6:54 AM PRESIDENT CELEBRITY ACQUISTION) [facility] [employer] Method Time Signature Unit Number [id number] 12/24/2016 [facility]ITY OF 8:38 PM [facility] B[facility] Blood Red Blood 12/24/2016 [facility]ITY OF Component Cells 8:38 PM [facility] Leukocyte [facility] Reduced BANK Division 00 12/24/2016 [facility] OF Number 8:38 PM PRESIDENT CELEBRITY ACQUISTION [facility] B[facility] Status of Released to 12/24/2016 [facility]ITY OF Unit care unit 11:58 PM PRESIDENT CELEBRITY ACQUISTION [facility] Blood Product [id number] 12/24/2016 [facility]ITY OF Code 8:38 PM PRESIDENT CELEBRITY ACQUISTION [facility] B[facility] Unit Status ISS [facility] Specimen Anatomical Collection Method Collection Time Receive d Time (Source) Location / / Volume Laterality 12/23/2016 6:54 AM 7 6:55 PRESIDENT CELEBRITY ACQUISTION AM PRESIDENT CELEBRITY ACQUISTION [facility] [employer] LAB - BLOOD BANK PRODUCT ORD ER Performing Organization Address City/[facility] Code Phon e Number [facility] [address] [place], [place] [phone] [place] [address] [facility] Blood component (12/23/2016 6:54 AM PRESIDENT CELEBRITY ACQUISTION) [facility] [employer] Method Time Signature Unit Number [id number] 12/24/2016 [facility]ITY OF 8:38 PM [facility] B[facility] Blood Red Blood 12/24/2016 [facility]ITY OF Component Cells 8:38 PM PRESIDENT CELEBRITY ACQUISTION [facility] WEST Reduced BANK Division 00 12/24/2016 [facility] OF Number 8:38 PM [facility] B[facility] Status of Released to 12/24/2016 [facility] OF Unit care unit 11:58 PM [facility] Blood Product [id number] 12/24/2016 [facility]ITY OF Code 8:38 PM PRESIDENT CELEBRITY ACQUISTION [facility] B[facility] Unit Status ISS [facility] Specimen Anatomical Collection Method Collection Time Receive d Time (Source) Location / / Volume Laterality 12/23/2016 6:54 AM 7 6:55 PRESIDENT CELEBRITY ACQUISTION AM PRESIDENT CELEBRITY ACQUISTION [facility] [employer] LAB - BLOOD BANK PRODUCT ORD ER Performing Organization Address City/[facility] Code Phon e Number [facility] [address] [place] [address] [address] WEST BANK Blood component (12/23/2016 6:54 AM PRESIDENT CELEBRITY ACQUISTION) [facility] [employer] Method Time Signature Unit Number [id number] 12/24/2016 [facility]ITY OF 8:38 PM [facility] BANK Blood Red Blood 12/24/2016 [facility]ITY OF Component Cells 8:38 PM PRESIDENT CELEBRITY ACQUISTION [facility] Leukocyte [facility] Reduced BANK Division 00 12/24/2016 [facility] OF Number 8:38 PM PRESIDENT CELEBRITY ACQUISTION [facility] B[facility] Status of Released to 12/24/2016 [facility]ITY OF Unit care unit 11:58 PM PRESIDENT CELEBRITY ACQUISTION [facility] Blood Product [id number] 12/24/2016 UN[facility]ITY OF Code 8:38 PM PRESIDENT CELEBRITY ACQUISTION [facility] B[facility] Unit Status ISS [facility] Specimen Anatomical Collection Method Collection Time Receive d Time (Source) Location / / Volume Laterality 12/23/2016 6:54 AM 7 6:55 PRESIDENT CELEBRITY ACQUISTION AM PRESIDENT CELEBRITY ACQUISTION [facility] [employer] LABORATORY Performing Organization Address City/State/ZIP Code Phon e Number [facility] [address] [place] [address] [address] [facility] Blood component (12/23/2016 6:54 AM PRESIDENT CELEBRITY ACQUISTION) [employer] Method Time Signature Unit Number [id number] 12/24/2016 UN[facility]ERSITY OF 8:38 PM PRESIDENT CELEBRITY ACQUISTION [facility] B[facility] Blood Red Blood 12/24/2016 UN[facility]ERSITY OF Component Cells 8:38 PM PRESIDENT CELEBRITY ACQUISTION [facility] WEST Reduced BANK Division 00 12/24/2016 [facility] OF Number 8:38 PM PRESIDENT CELEBRITY ACQUISTION [facility] B[facility] Status of Released to 12/24/2016 [facility]ITY OF Unit care unit 11:58 PM PRESIDENT CELEBRITY ACQUISTION [facility] Blood Product [id number] 12/24/2016 UN[facility]ITY OF Code 8:38 PM PRESIDENT CELEBRITY ACQUISTION [facility] B[facility] Unit Status ISS [facility] Specimen Anatomical Collection Method Collection Time Receive d Time (Source) Location / / Volume Laterality 12/23/2016 6:54 AM 7 6:55 PRESIDENT CELEBRITY ACQUISTION AM PRESIDENT CELEBRITY ACQUISTION [facility] [employer] LABORATORY Performing Organization Address City/State/ZIP Code Phon e Number [facility] [address] [place] [address] [address] [facility] Blood component (12/23/2016 6:54 AM PRESIDENT CELEBRITY ACQUISTION) [employer] Method Time Signature Unit Number [id number] 12/24/2016 UN[facility]ERSITY OF 7:32 PM PRESIDENT CELEBRITY ACQUISTION [facility] B[facility] Blood Red Blood 12/24/2016 UN[facility]ERSITY OF Component Cells 7:32 PM PRESIDENT CELEBRITY ACQUISTION [facility] Leukocyte [facility] Reduced BANK Division 00 12/24/2016 [facility]ITY OF Number 7:32 PM PRESIDENT CELEBRITY ACQUISTION [facility] B[facility] Status of Released to 12/24/2016 [facility]ITY OF Unit care unit 11:58 PM PRESIDENT CELEBRITY ACQUISTION [facility] Blood Product [id number] 12/24/2016 UN[facility]ERSITY OF Code 7:32 PM PRESIDENT CELEBRITY ACQUISTION [facility] B[facility] Unit Status ISS [facility] Specimen Anatomical Collection Method Collection Time Receive d Time (Source) Location / / Volume Laterality 12/23/2016 6:54 AM 7 6:55 PRESIDENT CELEBRITY ACQUISTION AM PRESIDENT CELEBRITY ACQUISTION [facility] [employer] LABORATORY Performing Organization Address City/[facility] Code Phon e Number [phone] [place] [phone] [place] [address] Blood component (12/23/2016 6:54 AM PRESIDENT CELEBRITY ACQUISTION) [employer] Method Time Signature Unit Number [id number] 12/24/2016 UN[facility]ERSITY OF 7:32 PM PRESIDENT CELEBRITY ACQUISTION [facility] BANK Blood Red Blood 12/24/2016 UNIVERSITY OF Component Cells 7:32 PM PRESIDENT CELEBRITY ACQUISTION [facility] WEST Reduced BANK Division 00 12/24/2016 UN[facility]ERSITY OF Number 7:32 PM PRESIDENT CELEBRITY ACQUISTION [facility] BANK Status of Released to 12/24/2016 UN[facility]ERSITY OF Unit care unit 11:58 PM PRESIDENT CELEBRITY ACQUISTION [facility] Blood Product [id number] 12/24/2016 UN[facility]ERSITY OF Code 7:32 PM PRESIDENT CELEBRITY ACQUISTION [facility] B[facility] Unit Status ISS [facility] Specimen Anatomical Collection Method Collection Time Receive d Time (Source) Location / / Volume Laterality 12/23/2016 6:54 AM 7 6:55 PRESIDENT CELEBRITY ACQUISTION AM PRESIDENT CELEBRITY ACQUISTION [facility] [employer] LABORATORY Performing Organization Address City/State/ZIP Code Phon e Number [facility] [address] [place], [place] [phone] [place] [phone] [place] [address] BANK Blood component (12/23/2016 6:54 AM PRESIDENT CELEBRITY ACQUISTION) Patholo gist Method Time Signature Unit Number [id number] 12/24/2016 UN[facility]ERSITY OF 7:05 PM PRESIDENT CELEBRITY ACQUISTION [facility] B[facility] Blood Red Blood 12/24/2016 UN[facility]ERSITY OF Component Cells 7:05 PM PRESIDENT CELEBRITY ACQUISTION [facility] Leukocyte [facility]ST Reduced BANK Division 00 12/24/2016 UN[facility]ITY OF Number 7:05 PM PRESIDENT CELEBRITY ACQUISTION [facility] B[facility] Status of Released to 12/24/2016 UN[facility]ITY OF Unit care unit 11:58 PM PRESIDENT CELEBRITY ACQUISTION [facility] Blood Product [id number] 12/24/2016 UN[facility]ERSITY OF Code 7:05 PM PRESIDENT CELEBRITY ACQUISTION [facility] B[facility] Unit Status ISS [facility] Specimen Anatomical Collection Method Collection Time Receive d Time (Source) Location / / Volume Laterality 12/23/2016 6:54 AM 7 6:55 PRESIDENT CELEBRITY ACQUISTION AM PRESIDENT CELEBRITY ACQUISTION [employer] LABORATORY Performing Organization Address City/[facility] Code Phon e Number [phone] [place] [address] Blood component (12/23/2016 6:54 AM PRESIDENT CELEBRITY ACQUISTION) [facility] gist Method Time Signature Unit Number [id number] 12/24/2016 UN[facility]ERSITY OF 7:05 PM PRESIDENT CELEBRITY ACQUISTION [facility] B[facility] Blood Red Blood 12/24/2016 UN[facility]ERSITY OF Component Cells 7:05 PM PRESIDENT CELEBRITY ACQUISTION [facility] Leukocyte [facility] Reduced BANK Division 00 12/24/2016 [facility]ERSITY OF Number 7:05 PM [facility] Status of Released to 12/24/2016 [facility]ITY OF Unit care unit 11:58 PM [facility] Blood Product [id number] 12/24/2016 UN[facility]ERSITY OF Code 7:05 PM [facility] Unit Status ISS [facility] Specimen Anatomical Collection Method Collection Time Receive d Time (Source) Location / / Volume Laterality 12/23/2016 6:54 AM 7 6:55 PRESIDENT CELEBRITY ACQUISTION AM PRESIDENT CELEBRITY ACQUISTION [employer] LABORATORY Performing Organization Address City/State/[facility] Code Phon e Number [facility] [address] [place], [place] [phone] [place] [phone] [place] [address] ABO/Rh type and screen (12/23/2016 6:54 AM PRESIDENT CELEBRITY ACQUISTION) [facility] gist Method Time Signature Units Ordered 12 12/24/2016 UNIVERSITY OF 9:49 PM PRESIDENT CELEBRITY ACQUISTION [facility] B[facility] ABO B 12/23/2016 UN[facility]ERSITY OF 7:32 AM PRESIDENT CELEBRITY ACQUISTION [facility] RH(D) Pos [facility] B[facility] Antibody Neg 12/23/2016 UN[facility]ERSITY OF Screen 7:32 AM PRESIDENT CELEBRITY ACQUISTION [facility] Test Valid University of 12/23/2016 [facility] [place] [facility] [place] 7:01 AM PRESIDENT CELEBRITY ACQUISTION [facility] BANK w Hospital Specimen 12/26/2016 12/23/2016 UNIVERSITY OF Expires 7:01 AM PRESIDENT CELEBRITY ACQUISTION [facility] Crossmatch Red Blood 12/24/2016 UNIVERSITY OF Cells 7:05 PM PRESIDENT CELEBRITY ACQUISTION [facility] Specimen Anatomical Collection Method Collection Time Receive d Time (Source) Location / / Volume Laterality Blood specimen 12/23/2016 6:54 AM 017 6:55 (specimen) PRESIDENT CELEBRITY ACQUISTION AM PRESIDENT CELEBRITY ACQUISTION Nora Mohamud LAB - BLOOD BANK TEST ORDER Performing Organization Address City/[facility] Code Phon e Number [address] [address] [facility] ABO/Rh type and screen (12/20/2016 10:48 AM CDT) [facility] Method Time Signature ABO B 12/20/2016 UNIVERSITY OF 11:31 AM CDT [facility] B[facility] RH(D) Pos [facility] BANK Antibody Neg 12/20/2016 UNIVERSITY OF Screen 11:31 AM CDT [facility] B[facility] Test Valid University of 12/20/2016 [facility] OF [place] [facility] [place] 11:00 AM CDT [facility] BANK w Hospital Specimen 12/23/2016 12/20/2016 UNIVERSITY OF Expires 11:00 AM CDT [facility] Specimen Anatomical Collection Method Collection Time Receive d Time (Source) Location / / Volume Laterality Blood specimen 12/20/2016 10:48 7 (specimen) AM CDT 10:49 AM CDT Lashawn Patel MD LAB - BLOOD BANK TEST ORDER Performing Organization Address City/[facility]/ZIP Code Phon e Number [address] [address] [facility] Maternal BPP Single (12/19/2016 8:46 AM CDT) Anatomical Region Laterality Modality Ultrasound Specimen (Source) Anatomical Collection Method Collection Time Re ceived Time Location / / Volume Laterality 12/19/2016 8:16 AM CDT Impressions 12/25/2016 9:13 AM PRESIDENT CELEBRITY ACQUISTION IMPRESSION 1) Intrauterine at 28 6/7 week s gestational age. 2) The BPP is reassuring. 3) Oligohydramnios is seen consistent wi th know PPROM. 4) A complete posterior placenta previa is again seen. Narrative 12/25/2016 9:13 AM PRESIDENT CELEBRITY ACQUISTION BPP Pat. Name: KING DEANN Study Date: 8:16am Pat. NO: [id number] Referring ??: CHRIST LOZADA Site: [facility] [facility] [facility] President Financial Institution: Jay Lu : 1980 Age: 36 INDICATION Premature Rupture of Membranes ( PPROM) Complete previa. METHOD [facility] [facility] ANTEPARTUM inpatient exam, Transabd ominal ultrasound examination. [...] Pat. Name:Elizabeth KING Date:12/19 8:16am Pat. NO: [id number] MD:CHRIST BHAT ON [facility]Yesenia Sen RDMS :1980Age:36 INDICATION Premature Rupture of Membranes ( PPROM) Complete previa. METHOD [facility] [facility] [facility] ANTEPARTUM inpatient exam, Transabd ominal ultrasound examination. [...] with the patient. [facility] Continue inpatient management of [...] previa is again seen. Erum Manzanares MD [facility] US ORDERABLES ABO/Rh type and screen (12/17/2016 6:54 AM CDT) [facility] Time Signature ABO B 12/17/2016 [facility] 7:49 AM CDT [facility] RH(D) Pos [facility] Antibody Neg 12/17/2016 UNIVERSITY OF Screen 7:49 AM CDT [facility] Test Valid University 12/17/2016 [facility] 7:18 AM CDT [facility],[place] BANK w Hospital Specimen 12/20/2016 12/17/2016 [facility] OF Abhinav 7:18 AM CDT [facility] Specimen Anatomical Collection Method Collection Time Receive d Time (Source) Location / / Volume Laterality Blood specimen 12/17/2016 6:54 AM 017 6:56 (specimen) CDT AM CDT Nora Munguia [place] LAB - BLOOD BANK TEST ORDER Performing Organization Address City/State/[facility] Code Phon e Number [facility] [address] [place] [address] [facility] Maternal US OB Limited Single/Multiple [...] DEANN KING Study Date: 8:43am Pat. NO: [id number] Referring ??: CHRIST LOZADA Site: [facility] [facility] President Financial Institution: Jay Lu : 1980 Age: 36 INDICATION Premature Rupture of Membranes ( PPROM) Complete previa. METHOD [facility] [facility] ANTEPARTUM inpatient exam, Transabd ominal ultrasound examination. [...] Pat. Name:Elizabeth KING Date:12/16 8:43am Pat. NO: [id number] MD:CHRIST BHAT ON [facility]Yesenia Sen RDMS :1980Age:36 INDICATION Premature Rupture of Membranes ( PPROM) Complete previa. METHOD [facility] ANTEPARTUM inpatient exam, Transabd ominal ultrasound examination. [...] stent with known PPROM. Erum Manzanares MD [facility] ORDERABLES ABO/Rh type and screen (12/14/2016 12:28 AM CDT) [facility] Method Time Signature ABO B 12/14/2016 UNIVERSITY OF 4:01 AM CDT [facility] RH(D) Pos [facility] Antibody Neg 12/14/2016 UNIVERSITY OF Screen 4:01 AM CDT [facility] Test Valid University of 12/14/2016 [facility] OF [place] [facility] [place] 1:05 AM CDT [facility],[place] BANK w Hospital Specimen 12/17/2016 12/14/2016 UNIVERSITY OF Expires 1:05 AM CDT [facility] Specimen Anatomical Collection Method Collection Time Receive d Time (Source) Location / / Volume Laterality Blood specimen 12/14/2016 12:28 7 (specimen) AM CDT 12:29 AM CDT Nalini Eli MD LAB - BLOOD BANK TEST ORDER Performing Organization Address City/[facility]/ZIP Code Phon e Number [facility] [address] [place], [place] [phone] [place] [address] Hepatitis B Surface Antibody (12/13/2016 9:42 PM CDT) P athologist Signature Hepatitis B 0.21 <8.00 12/16/2016 UNIVERSITY OF Surface m[IU]/mL 11:39 AM CDT [facility] Comment: Nonreactive, No antibody detect ed when the value is less than 8.00 m[IU]/mL. Specimen Anatomical Collection Method Collection Time Receive d Time (Source) Location / / Volume Laterality Blood specimen 12/13/2016 9:42 PM 017 9:43 (specimen) CDT PM CDT Erum Manzanares MD LAB - BLOOD ORDERABLES Performing Organization Address City/[facility]/ZIP Code Phon e Number [facility] [address] [place] [address] [facility] Hepatitis A Antibody IgG (12/13/2016 9:42 PM CDT) Patholo gist Method Time Signature Hepatitis A Nonreactive NR^Nonrea 12/16/2016 UNIVERSITY OF Antibody IgG ctive 11:39 AM CDT [facility] Comment: This assay cannot be used for t he diagnosis of acute HAV infection. Specimen Anatomical Collection Method Collection Time Receive d Time (Source) Location / / Volume Laterality Blood specimen 12/13/2016 9:42 PM 017 9:43 (specimen) CDT PM CDT Erum Manzanares MD LAB - BLOOD ORDERABLES Performing Organization Address City/State/ZIP Code Phon e Number [facility] [address] [place] [phone] [facility] Hepatitis B core antibody (12/13/2016 9:42 PM CDT) Patholo gist Method Time Signature Hepatitis B Nonreactive NR^Nonrea 12/16/2016 [facility] Maricruz ctive 11:39 AM CDT [facility] Specimen Anatomical Collection Method Collection Time Receive d Time (Source) Location / / Volume Laterality Blood specimen 12/13/2016 9:42 PM 017 9:43 (specimen) CDT PM CDT Erum Manzanares MD LAB - BLOOD ORDERABLES Performing Organization Address City/State/ZIP Code Phon e Number [facility] [address] [place] [address] [facility] MR (12/13/2016 2:33 PM CDT) Anatomical [...] Oligohydramnios. ZARINA THOMAS MD Nora Vincezainab Mohamud [facility] MRI ORDERABLES Maternal US OB Limited Single/Multiple [...] DEANN KING Study Date: 7:48am Pat. NO: [id number] Referring ??MD: CHRIST LOZADA Site: [facility] [facility] [facility] President Financial Institution: Jay Lu : 1980 Age: 36 INDICATION Premature Rupture of Membranes ( PPROM), Complete Previa. METHOD [facility] [facility] ANTEPARTUM inpatient exam, Transabd ominal and transvaginal [...] The patient was escorted back to her [facility] pital room at the end of the ultrasound. Please see [facility] for further documentation regarding plan of care. If you have questions regarding today's evaluation or if we can be of further service, please contact the [facility]. anomalies may be present but not detected. Procedure Note CrossNora MD - 12/12/2016For matting of this note might be different from the original. Cx TV Pat. Name:Elizabeth KING Date:12/12 7:48am Pat. NO: [id number] MD:CHRIST BHAT ON [facility]Yesenia Sen RDMS :1980Age:36 INDICATION Premature Rupture of Membranes ( PPROM), Complete Previa. METHOD [facility] [facility] [facility] ANTEPARTUM inpatient exam, Transabd ominal and transvaginal [...] The patient was escorted back to her [facility] room at the end of the ultrasound. Please see [facility] for further documentation regarding plan of [...] interface appears normal. Nora Vince Mohamud [facility] US ORDERABLES ABO/Rh type and screen (12/11/2016 9:05 AM CDT) [facility] Method Time Signature ABO B 12/11/2016 UNIVERSITY 10:14 AM CDT [facility] RH(D) Pos [facility] Antibody Neg 12/11/2016 UNIVERSITY OF Screen 10:14 AM CDT [facility] Test Valid [facility] 12/11/2016 [facility] [place] [facility] [place] 9:21 AM CDT [facility],[place] BANK w Hospital Specimen 12/14/2016 12/11/2016 UNIVERSITY OF Expires 9:21 AM CDT [facility] Specimen Anatomical Collection Method Collection Time Receive d Time (Source) Location / / Volume Laterality Blood specimen 12/11/2016 9:05 AM 017 9:06 (specimen) CDT AM CDT Nalini Eli MD LAB - BLOOD BANK TEST ORDER Performing Organization Address City/State/ZIP Code Phon e Number [facility] [address] [place] [address] [facility] Echocardiogram Complete (12/10/2016 9:05 AM CDT) Anatomical Region Laterality Modality Echocardiography Specimen (Source) Anatomical Collection Method Collection Time Re ceived Time Location / / Volume Laterality 12/10/2016 8:00 AM CDT Narrative 12/10/2016 9:23 AM CDT [id number]^EFRA^NORA^VINCE ?Study ID: [id number] ?[facility] ?[facility] ?[address] ?[place] [address] ? Echocardiogram __ Name: DEANN KING Maycol [...] 03/07/2017. Gestational age: 27w4d. Deli very at: [place]. Specific Indication: echocar diogram performed for family [...] the left atriu m. There is laminar fbzvu-we-euzf shunting across the foramen ovale. Atrioventricular valves: [...] Procedure Note Brice Lloyd MD - [phone] [id number] [facility] [id number]^EFRA^NORA^VINCE Study ID: [id number] [facility]'[address] [address] Echocardiogram __ Name: KINGDEANN Study Date: 12/10/2016 08:00 AM Patient Location: [facility] Gender: Female Patient Class: Inpatient : 1980 Age: 36 yrs Ordering Provider: NORA MOHAMUD Performed By: Krys Servin RDCS Reading Physician: Brice Lloyd MD Reason For Study: Other, Please Specify in Comments Data: Number of fetuses: This is a espinoza gestation. Due date: 03/07/2017. Gestational age: 27w4d. Deli very at: [place]. Specific Indication: echocar diogram performed for family [...] the left atriu m. There is laminar snniw-rk-hwgd shunting across the foramen ovale. Atrioventricular valves: [...] DEANN KING Study Date: 9:10am Pat. NO: [id number] Referring ??MD: CHRIST LOZADA Site: [employer] President Financial Institution: Jay Lu : 1980 Age: 36 INDICATION Premature Rupture of Membranes ( PPROM) Complete previa. METHOD Transabdominal ultrasound examination, [facility] inpatient exam. View: Suboptimal [...] 2 lb 1 ?oz Calculated by ?Hadlock ([id number]) Head / Face / Neck Biometry: Casino Cage Cashier ?3.9 ?mm ? Amniotic Fluid / FHR: [...] Pat. Name:Clovis KINGjames Date:12/08 9:10am Pat. NO: [id number] MD:CHRIST BHAT ON [facility]Yesenia Sen RDMS :1980Age:36 INDICATION Premature Rupture of Membranes ( PPROM) Complete previa. METHOD Transabdominal ultrasound examination, [facility] inpatient exam. View: Suboptimal [...] 2 lb 1 oz Calculated by Flora ([id number]) Head / Face / Neck Biometry: Casino Cage Cashier 3.9 mm Amniotic Fluid / FHR: AF [...] MARCELLA consistent with PPROM. Rossana Barker MD [facility] US ORDERABLES Wound Culture Aerobic Bacterial (12/07/2016 6:00 PM CDT) [facility] gist Method Time Signature Specimen Leg [...] MICRO GENERAL ORDERABL ES Performing Organization Address City/[facility]/ZIP Code Phon e Number INFECTIOUS DISEASES [address] [place] [address] DIAGNOSTIC LABORATORY, [facility] INFECTIOUS DISEASE [address] [place] [address], [facility] DIAGNOSTIC LABORATORY Methicillin resistant staph aureus cult (12/07/2016 6:00 PM CDT) [facility] gist Method Time Signature Specimen Wound [facility] BANK Special Specimen 12/07/2016 [facility] Requests collected in 7:06 PM CDT [facility] eSwab [facility] EAST transport BANK (white cap) Culture Micro Canceled, 12/07/2016 [facility] Test credited 8:13 PM CDT [facility] E[facility] BANK Culture Micro Test 12/07/2016 [facility] OF reordered as 8:13 PM CDT [facility] EAST BANK Specimen Anatomical Collection Method Collection Time Receive d Time (Source) Location / / Volume Laterality Specimen from 12/07/2016 6:00 PM 12/08/19 17 6:21 wound (specimen) CDT PM CDT Rossana Barker MD LAB - MICRO GENERAL ORDERABL ES Performing Organization Address City/State/ZIP Code Phon e Number [address] [address] [place] TSH with free T4 reflex (12/07/2016 3:43 PM CDT) athologist Signature TSH 3.09 0.40 - 4.00 12/09/2016 [facility] mU/L 5:39 PM CDT [facility] Specimen Anatomical Collection Method Collection Time Receive d Time (Source) Location / / Volume Laterality 12/07/2016 3:43 PM 7 3:44 CDT PM CDT Nora Leyva MD LAB - BLOOD ORDERABLES Performing Organization Address City/State/ZIP Code Phon e Number [facility] [address] [place] [address] [facility] Rubella Antibody IgG Quantitative (12/07/2016 3:43 PM CDT) Analysis Performed At Patho logist Time Signature Rubella Antibody 7 IU/mL 12/09/2016 [facility] F IgG Quantitative 11:02 AM CDT [facility] Comment: Negative Reference Range: ??Unvaccinated Negative 0-7 IU/mL Vaccinated or previous exposure Positive 10 IU/ml or greater Specimen Anatomical Collection Method Collection Time Receive d Time (Source) Location / / Volume Laterality 12/07/2016 3:43 PM 7 3:44 CDT PM CDT Nora Leyva MD LAB - BLOOD ORDERABLES Performing Organization Address City/State/ZIP Code Phon e Number [facility] [address] [place] [address] [facility] (ABNORMAL) Hepatitis C RNA quantitative (12/07/2016 3:43 PM CDT) Patholo gist Method Time Signature HCV RNA Quant [id number] HCVND^HCV 12/09/2016 [facility] IU/ml (A) RNA Not 12:19 PM CDT [facility] EAST [IU]/mL BANK Comment: The LEONARDO AmpliPrep/LEONARDO [...] (H) <1.2 Log IU/mL 12/09/2016 12:19 PM [facility] Qt CDT [facility] EAST BANK Specimen Anatomical Collection Method Collection Time Receive d Time (Source) Location / / Volume Laterality Blood specimen 12/07/2016 3:43 PM 017 3:44 (specimen) CDT PM CDT Nora Leyva MD LAB - BLOOD ORDERABLES Performing Organization Address City/State/ZIP Code Phon e Number [facility] [address] [place] [address] [place] hemoglobin stain Kleihauer (12/07/2016 3:43 PM CDT) Patholo gist Method Time Signature Kleihauer-Bet No cells seen 12/07/2016 UNIVE [facility] OF ke Rhogam not required 7:22 PM CDT [facility] Patient Rh positive [facility] Test performed at [place] BANK Specimen Anatomical Collection Method Collection Time Receive d Time (Source) Location / / Volume Laterality Blood specimen 12/07/2016 3:43 PM 017 3:45 (specimen) CDT PM CDT Nora Leyva MD LAB - BLOOD BANK TEST ORDER Performing Organization Address City/[facility]/ZIP Code Phon e Number [address] [address] [facility] Fibrinogen activity (12/07/2016 3:43 PM CDT) P athologist Signature Fibrinogen 362 200 - 420 12/07/2016 [facility] OF mg/dL 5:44 PM CDT [facility] Specimen Anatomical Collection Method Collection Time Receive d Time (Source) Location / / Volume Laterality Blood specimen 12/07/2016 3:43 PM 017 3:44 (specimen) CDT PM CDT Nora Leyva MD LAB - BLOOD ORDERABLES Performing Organization Address City/State/ZIP Code Phon e Number [address] [address] [facility] Partial thromboplastin time (12/07/2016 3:43 PM CDT) P athologist Signature PTT 27 22 - 37 sec 12/07/2016 [facility] 5:44 PM CDT [facility] Specimen Anatomical Collection Method Collection Time Receive d Time (Source) Location / / Volume Laterality Blood specimen 12/07/2016 3:43 PM 017 3:44 (specimen) CDT PM CDT Nora Leyva MD LAB - BLOOD ORDERABLES Performing Organization Address City/State/ZIP Code Phon e Number [address] [address] [facility] INR (12/07/2016 3:43 PM CDT) athologist Signature INR 1.06 0.86 - 1.14 12/07/2016 [facility] 5:44 PM CDT [facility] Specimen Anatomical Collection Method Collection Time Receive d Time (Source) Location / / Volume Laterality Blood specimen 12/07/2016 3:43 PM 017 3:44 (specimen) CDT PM CDT Nora Leyva MD LAB - BLOOD ORDERABLES Performing Organization Address City/[facility]/ZIP Code Phon e Number [address] [address] [facility] (ABNORMAL) Comprehensive metabolic panel (12/07/2016 3:43 PM CDT) athologist Signature Sodium 141 133 - 144 12/07/2016 [facility] mmol/L 4:08 PM CDT [facility] Potassium 3.4 3.4 - 5.3 12/07/2016 [facility] mmol/L 4:08 PM CDT [facility] Chloride 108 94 - 109 12/07/2016 [facility] mmol/L 4:08 PM CDT [facility] Carbon Dioxide 21 20 - 32 12/07/2016 [facility] mmol/L 4:08 PM CDT [facility] Anion Gap 12 3 - 14 12/07/2016 [facility] mmol/L 4:08 PM CDT [facility] Glucose 88 70 - 99 12/07/2016 [facility] mg/dL 4:08 PM CDT [facility] Urea Nitrogen 6 (L) 7 - 30 12/07/2016 [facility] mg/dL 4:08 PM CDT [facility] Creatinine 0.55 0.52 - 12/07/2016 [facility] 1.04 mg/dL 4:08 PM CDT [facility] GFR Estimate >90 >60 12/07/2016 [facility] mL/min/1.7 4:08 PM CDT [address] Comment: Non GFR Calc GFR Estimate If >90 >60 mL/min/1.7m2 12/07/2016 4:08 P M [facility] Black [facility] Comment: GFR Calc Calcium 8.1 (L) 8.5 - 10.1 12/07/2016 4:08 PM [facility] mg/dL [facility] Bilirubin Total 0.4 0.2 - 1.3 12/07/2016 4:08 PM UNIVE RSITY [facility] mg/dL [facility] Albumin 2.5 (L) 3.4 - 5.0 g/dL 12/07/2016 4:08 PM UNIVER SITY [facility] Protein Total 6.1 (L) 6.8 - 8.8 g/dL 12/07/2016 4:08 PM UN [facility]ITY [facility] Alkaline Phosphatase 69 40 - 150 U/L 12/07/2016 4:08 PM [facility] ALT 26 0 - 50 U/L 12/07/2016 4:08 PM [facility] AST 21 0 - 45 U/L 12/07/2016 4:08 PM [facility] Specimen Anatomical Collection Method Collection Time Receive d Time (Source) Location / / Volume Laterality Blood specimen 12/07/2016 3:43 PM 017 3:44 (specimen) CDT PM CDT Nora Leyva MD LAB - BLOOD ORDERABLES Performing Organization Address City/State/ZIP Code Phon e Number [facility] [address] [place] [address] [facility] Urine Culture Aerobic Bacterial (12/07/2016 2:55 PM CDT) Component Value Ref Test Analysis Performed At [facility] Range Method Time Signature Specimen Unspecified Urine INFECTIOUS Description DISEASE DIAGNOSTIC LABORATORY Special Specimen received 12/07/2016 [facility] in preservative 7:19 PM CDT [facility] Culture Micro >100,000 colonies/mL 12/08/2016 INFE CTIOUS [...] Code Phon e Number INFECTIOUS DISEASES [address] [place] [address] DIAGNOSTIC LABORATORY, [facility] INFECTIOUS DISEASE [address] [place] [address], [facility] DIAGNOSTIC LABORATORY [address] [address], [facility] (ABNORMAL) UA reflex to Microscopic and Culture (12/07/2016 2:55 PM CDT) [facility] Method Time Signature Color Urine Yellow 12/07/2016 UN[facility]ITY OF 3:37 PM CDT [facility] Appearance Urine Clear 12/07/2016 UNIVERSITY O F 3:37 PM CDT [facility] Glucose Urine Negative NEG^Negat 12/07/2016 [facility]ITY OF paula mg/dL 3:37 PM CDT [facility] Bilirubin Urine Negative NEG^Negat 12/07/2016 [facility] OF paula 3:37 PM CDT [facility] Ketones Urine Negative NEG^Negat 12/07/2016 [facility] OF paula mg/dL 3:37 PM CDT [facility] Specific [place] 1.015 1.003 - 12/07/2016 UNIVERSITY O F Urine 1.035 3:37 PM CDT [facility] Blood Urine Negative NEG^Negat 12/07/2016 [facility] OF paula 3:37 PM CDT [facility] pH Urine 6.5 5.0 - 7.0 12/07/2016 [facility] OF pH 3:37 PM T [facility] Protein Albumin 10 (A) NEG^Negat 12/07/2016 [facility] OF Urine paula mg/dL 3:37 PM CDT [facility] Urobilinogen Normal 0.0 - 2.0 12/07/2016 [facility] OF mg/dL mg/dL 3:37 PM T [facility] Nitrite Urine Negative NEG^Negat 12/07/2016 [facility]ITY OF paula 3:37 PM T [facility] Leukocyte Moderate (A) NEG^Negat 12/07/2016 [facility]ITY OF Esterase Urine paula 3:37 PM T [facility] Source Midstream 12/07/2016 [facility]ITY OF Urine 3:23 PM T [facility] RBC Urine 1 0 - 2 12/07/2016 U OF M /HPF 3:49 PM CDT [facility] WBC Urine 7 (H) 0 - 2 12/07/2016 U OF M /HPF 3:49 PM T [facility] Bacteria Urine Few (A) NEG^Negat 12/07/2016 U [facility] M paula /HPF 3:49 PM T [facility] Squamous 1 0 - 1 12/07/2016 U OF M Epithelial /HPF /HPF 3:[address] [facility] Urine [facility] Mucous Urine Present (A) NEG^Negat 12/07/2016 U [facility] M paula /LPF 3:49 PM [facility] Specimen (Source) Anatomical Collection Method Collection Time Re ceived Time Location / / Volume Laterality Examination of URINE SPECIMEN 12/07/2016 2:55 12/08/19 17 3:22 midstream urine OBTAINED BY CLEAN PM CDT PM CDT specimen CATCH PROCEDURE / (procedure) Unknown Nora Leyva MD LAB - URINE ORDERABLES Performing Organization Address City/State/ZIP Code Phon e Number [facility] [address] [place] [address] [facility] U OF M [facility] Drug abuse scrn 7 UR (/) (RH, SH, UR) (12/07/2016 2:55 PM CDT) [facility] Method Time Signature Amphetamine Qual Negative NEG^Negat 12/07/2016 UNIVERSITY O F Urine paula 3:48 PM [facility] Comment: Cutoff for a negative amphetami ne is 500 ng/mL or less. Cannabinoids Qual Negative NEG^Negative 12/07/2016 3:48 PM [facility] Urine [facility] Comment: Cutoff for a negative cannabino id is 50 ng/mL or less. Cocaine Qual Urine Negative NEG^Negative 12/07/2016 3:48 PM [facility] Comment: Cutoff for a negative cocaine i s 300 ng/mL or less. Opiates Qualitative Negative NEG^Negative 12/07/2016 3:48 P M [facility] Urine [facility] Comment: Cutoff for a negative opiate is 300 ng/mL or less. Pcp Qual Urine Negative NEG^Negative 12/07/2016 3:48 PM CDT [facility] Comment: Cutoff for a negative PCP is 25 ng/mL or less. Specimen Anatomical Collection Method Collection Time Receive d Time (Source) Location / / Volume Laterality Urine specimen URINE SPECIMEN 12/07/2016 2:55 PM 12/07 3:22 (specimen) OBTAINED BY CLEAN CDT PM CDT CATCH PROCEDURE / Unknown Nora Leyva MD LAB - URINE ORDERABLES Performing Organization Address City/[facility] Phon e Number [address] Chlamydia trachomatis PCR (12/07/2016 2:54 PM CDT) Patholo gist Method Time Signature Specimen Vagina 12/07/2016 [facility]ITY OF Description 3:13 PM CDT [facility] Chlamydia Negative NEG^Negat 12/08/2016 [facility]ITY OF Trachomatis PCR paula 1:55 PM CDT [facility] Comment: Negative for C. trachomatis rRNA by prescott scription mediated amplification. A negative result by cardiology rn media kris amplification does not preclude the [...] MICRO GENERAL ORDERABL ES Performing Organization Address City/[facility]/ZIP Code Phon e Number [facility] [address] [place], [place] [id number] [place] [address] Neisseria gonorrhoeae PCR (12/07/2016 2:54 PM CDT) Analysis Performed At Patho logist Time Signature Specimen Vagina 12/07/2016 UNIVERSITY OF Descrip 3:13 PM CDT [facility] N Gonorrhea Negative NEG^Negati 12/08/2016 UNIVERSITY OF PCR ve 1:55 PM CDT [facility] Comment: Negative for N. gonorrhoeae rRNA by prescott scription mediated amplification. A negative result by cardiology rn media kris amplification does not preclude the [...] MICRO GENERAL ORDERABL ES Performing Organization Address City/[facility]/ZIP [facility] Phon e Number [facility] [address] [place], [place] [id number] [place] [id number] [place] [address] Wet prep (12/07/2016 2:54 PM CDT) Component Value Ref Test Analysis Performed At [facility] [employer] Range Method Time Signature Specimen Vagina [facility] Description [facility] Wet Prep No Trichomonas 12/07/2016 UN[facility]ERSITY OF seen 3:34 PM CDT [facility] Wet Prep No yeast seen 12/07/2016 UN[facility]ITY OF 3:34 PM CDT [facility] Wet Prep Moderate 12/07/2016 UN[facility]ITY OF PMNs seen 3:34 PM CDT [facility] Wet Prep No clue cells 12/07/2016 [facility] OF seen 3:34 PM CDT [facility] Specimen Anatomical Collection Method Collection Time Receive d Time (Source) Location / / Volume Laterality Specimen from 12/07/2016 2:54 PM 12/08/19 17 3:10 vagina CDT PM CDT (specimen) Nora Leyva MD LAB - MICRO GENERAL ORDERABL ES Performing Organization Address City/[facility] Code Phon e Number [address] (ABNORMAL) Group B strep PCR (12/07/2016 2:54 PM CDT) [employer] Method Time Signature Group B Strep Vaginal 12/07/2016 UNIVERSITY OF PCR Spec Valdemar Rectal 2:58 PM CDT [facility] Group B Strep Positive (A) NEG^Negat 12/08/2016 UNIVERSITY O F PCR paula 1:27 PM CDT [facility] Comment: Positive: GBS DNA detected, presumed pos itive for GBS. Assay performed on incubated broth cultu re of specimen using PAYMILL real-time PCR. Specimen Anatomical Collection Method Collection Time Receive d Time (Source) Location / / Volume Laterality Vaginal Rectal 12/07/2016 2:54 PM 017 3:14 CDT PM CDT Nora Leyva MD LAB - MICRO GENERAL ORDERABL ES Performing Organization Address City/State/ZIP Code Phon e Number [facility] [address] [place] [address] [address] [facility] ABO/Rh type and screen (12/07/2016 2:41 PM CDT) [facility] Method Time Signature ABO B 12/07/2016 UN[facility]ERSITY OF 6:08 PM CDT [facility] RH(D) Pos [facility] Antibody Neg 12/07/2016 UN[facility]ERSITY OF Screen 6:08 PM CDT [facility] Test Valid University 12/07/2016 [facility] 5:31 PM CDT [facility] [facility] Specimen 12/10/2016 12/07/2016 UN[facility]ERSITY OF Expires 5:31 PM CDT [facility] Specimen Anatomical Collection Method Collection Time Receive d Time (Source) Location / / Volume Laterality Blood specimen 12/07/2016 2:41 PM 017 2:44 (specimen) CDT PM CDT Rossana Barker MD LAB - BLOOD BANK TEST ORDER Performing Organization Address City/[facility]/ZIP Code Phon e Number [address] [address] [facility] (ABNORMAL) CBC with platelets (12/07/2016 2:41 PM CDT) [facility] Method Time Signature WBC 8.4 4.0 - 11.0 12/07/2016 UNIVERSITY OF 10e9/L 2:47 PM CDT [facility] RBC Count 3.10 (L) 3.8 - 5.2 12/07/2016 UNIVERSITY OF 10e12/L 2:47 PM CDT [facility] Hemoglobin 9.4 (L) 11.7 - 12/07/2016 UN[facility]ERSITY OF 15.7 g/dL 2:47 PM CDT [facility] Hematocrit 28.2 (L) 35.0 - 12/07/2016 UN[facility]ERSITY OF 47.0 % 2:47 PM CDT [facility] MCV 91 78 - 100 12/07/2016 UN[facility]ERSITY OF fl 2:47 PM CDT [facility] MCH 30.3 26.5 - 12/07/2016 UN[facility]ERSITY OF 33.0 pg 2:47 PM CDT [facility] MCHC 33.3 31.5 - 12/07/2016 UNIVERSITY OF 36.5 g/dL 2:47 PM CDT [facility] RDW 17.1 (H) 10.0 - 12/07/2016 [facility]ITY OF 15.0 % 2:47 PM CDT [facility] Platelet Count 185 150 - 450 12/07/2016 UN[facility]ERSITY OF 10e9/L 2:47 PM CDT [facility] Specimen Anatomical Collection Method Collection Time Receive d Time (Source) Location / / Volume Laterality Blood specimen 12/07/2016 2:41 PM 017 2:42 (specimen) CDT PM CDT Rossana Barker MD LAB - BLOOD ORDERABLES Performing Organization Address City/[facility] Code Phon e Number [address] [address] [facility] (ABNORMAL) Referral sensitivity (12/07/2016 1:27 PM CDT) Component Value Ref Test Analysis Performed At [facility] gist Range Method Time Signature Specimen Vaginal [...] MICRO GENERAL ORDERABL ES Performing Organization Address City/[facility]/ZIP Code Phon e Number INFECTIOUS DISEASES [address] [place] [address] DIAGNOSTIC LABORATORY, [employer] INFECTIOUS DISEASE [address] [place], [place] [address] DI[facility]IC LAB[facility]ORY documented in this encounter Visit Diagnoses Not on filedocumented in this encounter Administered Medications Inactive Administered Medications - up to 3 most recent administrations Medication Order MAR Action Action Date Dose Rate Site acetaminophen (TYLENOL) tablet Given 12/27/2016 12:40 PM [facility] 975 mg 975 mg 975 mg, Oral, EVERY 8 HOURS, First dose on Fri12/25/16 at 0000, For 3 days, Do not use if patient has an active opioid/acetaminophen analgesic order for pain Maximum acetaminophen dose from all sources = 75 mg/kg/day not to exceed 4 grams/day., Post-procedure Given 12/27/2016 2:07 AM [facility] 975 mg Given 12/26/2016 6:00 PM [employer] [employer] 975 mg bacitracin ointment Given 12/27/2016 8:12 AM [employer] [employer] [employer] Topical, 3 TIMES DAILY, First dose on Fri12/22/16 at 1400, Apply to areas of picking. Given 12/25/2016 1:01 PM [employer] Given 12/24/2016 7:56 AM [facility] [employer] benzocaine (ORAJEL MAXIMUM STRENGTH) 20 % gel Given 12/24/2016 9:19 AM [facility] Mouth/Throat, 4 TIMES DAILY PRN, moderate pain, Starting on 12/23/16 at 0935, Apply to side of tongue near sore bisacodyl (DULCOLAX) Suppository 10 mg Given 12/25/2016 9:53 PM [employer] [employer] 10 mg 10 mg, Rectal, DAILY PRN, constipation, Starting on Fri12/25/16 at 2148, Start POD 2, Post-procedure buprenorphine (SUBUTEX) sublingual table t 2 mg Given 12/27/2016 8:10 AM [facility] [employer] 2 mg 2 mg, Sublingual, 5 TIMES DAILY, First dose on 12/07/16 at 1545 Given 12/27/2016 4:06 AM [employer] 2 mg Given 12/26/2016 10:38 PM [facility] 2 mg buPROPion (WELLBUTRIN SR) 12 hr tablet 1 50 mg Given 12/27/2016 8:10 AM [facility] [employer] [employer] 150 mg 150 mg, Oral, DAILY, First dose on Fri12/17/16 at 0800, DO NOT CRUSH. Given 12/26/2016 8:23 AM [employer] [employer] [employer] 150 mg Given 12/25/2016 7:52 AM [facility] [employer] 150 mg diphenhydrAMINE (BENADRYL) capsule 25 mg Given 12/25/2016 7:23 PM [employer] 25 mg 25 mg, Oral, EVERY 6 [...] emollient (VANICREAM) cream Given 12/24/2016 9:19 AM [employer] Topical, EVERY 2 HOURS PRN, other, area of dry skin, Starting on Fri12/15/16 at 1239, Apply to areas of dry skin hydrocortisone (CORTAID) 1 % cream Given 12/27/2016 8:12 AM [employer] [employer] [employer] Topical, 2 TIMES DAILY, First dose on Fri12/17/16 at 2115, Apply to upper arms and left abdomen Given 12/25/2016 8:09 AM [employer] Given 12/23/2016 8:48 AM [employer] [employer] Left Arm ibuprofen (ADVIL/MOTRIN) tablet 600 mg Given 12/27/2016 9:24 AM [employer] 600 mg 600 mg, Oral, EVERY 6 HOURS RT, First dose (after last modification) on Fri12/26/16 at 0800, Ibuprofen to start after toradol finishes Given 12/27/2016 3:07 AM PRESIDENT CELEBRITY ACQUISTION 600 mg Given 12/26/2016 9:01 PM PRESIDENT CELEBRITY ACQUISTION 600 mg levothyroxine (SYNTHROID/LEVOTHROID) tablet Given 12/18 8:10 AM PRESIDENT CELEBRITY ACQUISTION 150 mcg 150 mcg 150 mcg, Oral, DAILY, First dose (after last modification) on Fri12/11/16 at 0800, Separate oral administration of iron- or calcium-containing products and levothyroxine by at least 4 hours. Given 12/26/2016 8:24 AM PRESIDENT CELEBRITY ACQUISTION 150 mcg Given 12/25/2016 7:52 AM PRESIDENT CELEBRITY ACQUISTION 150 mcg magic mouthwash suspension (diphenhydramine, lidocaine , aluminum-magnesium & simethicone) 10 mL, Swish & Swallow, EVERY 6 HOURS UT N, mouth sores, Starting on Fri12/24/16 at 1014 nicotine polacrilex (NICORETTE) gum 2 mg 2 mg, Buccal, EVERY 1 HOUR PRN, smoking cessation, Sta rting on 12/08/16 at 1557, Gum should be chewed slowly until it tingles, then placed between cheek and gum: when tingle gone, repeat process until tingle kikr e (about 30 minutes). oxyCODONE IR (ROXICODONE) tablet 15-20 m g Given 12/27/2016 12:40 PM PRESIDENT CELEBRITY ACQUISTION 20 mg 15-20 mg, Oral, EVERY 3 HOURS PRN, moderate to severe pain, Starting on Fri12/25/16 at 1645, Patient is an opioid tolerant patient and will require higher narcotic doses due to buprenorphine. Given 12/27/2016 9:24 AM PRESIDENT CELEBRITY ACQUISTION 20 mg Given 12/27/2016 6:21 AM PRESIDENT CELEBRITY ACQUISTION 20 mg potassium chloride (KLOR-CON) Packet 20- [...] to opioids., Post-procedure Given 12/26/2016 9:01 PM PRESIDENT CELEBRITY ACQUISTION 2 tablets Given 12/26/2016 8:23 AM PRESIDENT CELEBRITY ACQUISTION 2 tablets simethicone (MYLICON) chewable tablet 80 mg Given 12/26/2016 1:54 PM PRESIDENT CELEBRITY ACQUISTION 80 mg 80 mg, Oral, 4 TIMES DAILY PRN, other, gas, Starting on Fri12/25/16 at 0352, Chew., Post-procedure Given 12/26/2016 6:36 AM PRESIDENT CELEBRITY ACQUISTION 80 mg Given 12/26/2016 12:31 AM PRESIDENT CELEBRITY ACQUISTION 80 mg sodium chloride (OCEAN) 0.65 % nasal spray Given 12/08 10:57 AM CDT 1 spray 1 spray 1 spray, Both Nostrils, EVERY 1 HOUR PRN, congestion, Starting on Fri12/08/16 at 1027 sodium chloride (PF) 0.9% PF flush 3 mL Given 12/26/2016 6:58 AM PRESIDENT CELEBRITY ACQUISTION 3 mLs 3 mL, Intracatheter, EVERY 1 HOUR PRN, line flush, for peripheral IV flush post IV meds, Starting on Fri12/25/16 at 0352, Post-procedure Given 12/26/2016 5:07 AM PRESIDENT CELEBRITY ACQUISTION 3 mLs Given 12/26/2016 1:52 AM PRESIDENT CELEBRITY ACQUISTION 3 mLs venlafaxine (EFFEXOR-ER) 24 hr tablet 15 0 mg Given 12/27/2016 8:10 AM PRESIDENT CELEBRITY ACQUISTION 150 mg 150 mg, Oral, DAILY WITH BREAKFAST, First dose (after last modification) on Fri12/09/16 at 0800, DO NOT CRUSH. Given 12/26/2016 8:23 AM PRESIDENT CELEBRITY ACQUISTION 150 mg Given 12/25/2016 11:12 AM PRESIDENT CELEBRITY ACQUISTION 150 mg documented in this encounter Active and Recently Administered Medications Times are shown in PRESIDENT CELEBRITY ACQUISTION. Scheduled Medication Order 12/25/2016 12/26/2016 12/27/2016 acetaminophen [...] HYDROmorphone (DILAUDID) Loading Dose ad ministered from RN ORTHOPAEDIC 0.2-0.3 mg (COMPLETED) 0336 (Given - Provider: Khloe Elmore RN) 0.2-0.3 mg, Intravenous, RN ORTHOPAEDIC LOADING DOS E, Fri12/25/16 at 0000, For 1 dose, LOADING DOSE (bolus) with start of RN ORTHOPAEDIC. DO NOT GIVE IF A LOADING BOLUS DOSE HAS ALREADY BEEN GIVEN. (If loading dose not given from RN ORTHOPAEDIC, bar code scan must be overridden to chart dose)., Pos t-procedure HYDROmorphone (DILAUDID) RN ORTHOPAEDIC 1 mg/mL (CANCELED) 0100 ( New Syringe/Cartridge - Provider: Lisa Rubio RN)0218 (Auto Hold - Provider: Orders Generic Provider - Reason: Transfer to a procedural area)0253 (Unhold - Provider: Marleny Kang MD) RN ORTHOPAEDIC dose (mg): 0.2, Max RN ORTHOPAEDIC dose (mg): 0 .3, Lockout Interval (min): 10 minutes, RN ORTHOPAEDIC Continuous Rate (mg/hr): CONTINUOUS RATE IS NOT RECOMMENDED FOR OPIOID NAIVE PATIENTS, Hour Limit (mg): 1.8, First dos e on Fri12/25/16 at 0000, Do NOT give an y additional opioids while on RN ORTHOPAEDIC. When transitioning from RN ORTHOPAEDIC to oral opioids MAY give first oral opioid dose 30 minutes PRIOR to discontinuation of RN ORTHOPAEDIC., Intravenous, Post-procedure HYDROmorphone (DILAUDID) RN ORTHOPAEDIC 1 mg/mL (CANCELED) 0454 ( Rate/Dose Verify - Provider: Khloe Elmore RN)0508 (Canceled Entry - Provider: Khloe Elmore, GENARO)0624 (Shift Total - Provider: Khloe Elmore RN) RN ORTHOPAEDIC dose (mg): 0.2, Max RN ORTHOPAEDIC dose (mg): 0 .3, Lockout Interval (min): 10 minutes, RN ORTHOPAEDIC Continuous Rate (mg/hr): CONTINUOUS RATE IS NOT RECOMMENDED FOR OPIOID NAIVE PATIENTS, Hour Limit (mg): 2, First dose on Fri12/25/16 at 0430, Do NOT give any additional opioids while on RN ORTHOPAEDIC. When transitioning from RN ORTHOPAEDIC to oral opioids MAY give first oral opioid dose 30 minutes PRIOR to discontinuation of RN ORTHOPAEDIC., Intravenous, Post-procedure HYDROmorphone (DILAUDID) RN ORTHOPAEDIC 1 mg/mL (CANCELED) 0845 ( Canceled Entry - Provider: Fransisca Gates RN)0901 (Rate/Dose Verify - Provider: Fransisca Gates RN)1350 (Stopped - Provider: Maria Antonia Hidalgo RN) RN ORTHOPAEDIC dose (mg): 0.3, Max RN ORTHOPAEDIC dose (mg): 0 .5, Lockout Interval (min): 10 minutes, RN ORTHOPAEDIC Continuous Rate (mg/hr): 0.3, MAX Continuous Rate [...] Generic Provider)1112 (Given - Provider: Maria Antonia Hidlago, GENARO) 0823 (Given - Provider: Hyacinth Wolf, [...] RN) 0.2-0.3 mg, Intravenous, EVERY 1 HOUR UT N, Starting Zoe 12/26/16 at 0407, Until [...] RN) 0.3-0.5 mg, Intravenous, EVERY 1 HOUR UT N, Starting Fri12/25/16 at 1559, Until Zoe [...] mL, Swish & Swallow, EVERY 6 HOURS UT N, mouth sores, Starting Fri12/24/16 at 1014 [...]
Post-procedure documented in this encounter Care Teams Motorcycle Mechanic Relationship Specialty Start Date End Date Luis Fernando Magana PCP - General Family Practice 12/07/16 01/19/18 [place] [address] documented as of this encounter
--- OUTSIDE RECORDS SUMMARY | 2021-12-05 19:26 | XMS_ITS | Encounter Summary ---
:1980 Author Organization [place] Address [address] [place] [address] Care Team Providers Name Role Phone Luis Fernando Magana Primary Care Provider Encounter Details Date Type Department Care Team Description 12/23/2016 Documentation Only [facility] Edgar Alfredo, [facility] [address] [place] [address] [place] [address] (Wo rk) Social History Tobacco Use Types Packs/Day Years Used Date Smoking Tobacco: Every Day Cigarettes 0.1 10 Smokeless Tobacco: Never Comments: 5 cigarettes a day Alcohol Use Standard Drinks/Week Comments Yes 0 (1 standard drink = 0.6 oz pure Stoppe d after found out alcohol) Sex Assigned at Date Recorded Female 01/14/2020 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 [phone] CAL SCREENER documented in this encounter Plan of Treatment Upcoming Encounters Date Type Specialty Care Team Description 12/20/2021 Office Visit Wound Care Luis Camara, [place] [address] [place], [place] [address] (Wo rk) 01/21/2022 Office Visit Gastroenterology Juanis Levi [address] [place] [phone] Luis Fernando Miles MD [address] [facility] [address] [place], [place] [address] documented as of this encounter Visit Diagnoses Not on filedocumented in this encounter Care Teams Office Lead Relationship Specialty Start Date End Date Luis Fernando Magana PCP - General Family Practice 12/07/16 01/19/[address] [address] documented as of this encounter
--- OUTSIDE RECORDS SUMMARY | 2021-12-05 19:26 | XMS_ITS | Encounter Summary ---
:1980 Author Organization [place] Address [address] 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 Diagnoses Maternity*JEAN MARIE: 03/07/2017 Rupture premature rupture of membranes (PPROM) delivered, current hospitalization [facility] [address] [place] [address] Phone: Referral ID Status Reason Start Date Expiration Date Visits Requ ested Visits Authorized [id number] 12/09/2016 12/09/2017 1 1 Encounter Details Date Type Department Care Team Description 12/23/2016 Hospital Encounter [facility] Lashawn Patel, Maternal Medicine [facility] [address] [facility] [address] [place] [address] [phone] Social History Tobacco Use Types Packs/Day Years Used Date Smoking Tobacco: Every Day Cigarettes 0.1 10 Smokeless Tobacco: Never Comments: 5 cigarettes a day Alcohol Use Standard Drinks/Week Comments Yes 0 (1 standard drink = 0.6 oz pure Stoppe d after found out alcohol) Sex Assigned at Date Recorded Female 01/14/2020 10:57 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 documented in this encounter Results Maternal BPP Single (12/23/2016 8:37 AM COMMUNITY ASSISTANT) Anatomical Region Laterality Modality Ultrasound Specimen (Source) Anatomical Collection Method Collection Time Re ceived Time Location / / Volume Laterality 12/23/2016 8:05 AM COMMUNITY ASSISTANT Impressions 12/23/2016 11:10 AM COMMUNITY ASSISTANT IMPRESSION 1) Intrauterine at 29 3/7 week s gestational age. 2) The BPP is reassuring. 3) The amniotic fluid volume low consist ent with known PPROM. 4) There is a complete posterior/lateral placenta previa. Narrative 12/23/2016 11:10 AM COMMUNITY ASSISTANT BPP Pat. Name: REDDY STEPHANI Study Date: 8:05am Pat. NO: [id number] Referring ??: CHRIST LOZADA Site: [facility] Round Up Ring Hand: Jay Lu : 1980 Age: 36 INDICATION [...] Pat. Name:Elizabeth REDDY Date:12/23 8:05am Pat. NO: [id number] MD:CHRIST BHAT ON [facility]Yesenia [facility] RDMS :1980Age:36 INDICATION Premature [...] complete posterior/lateral placenta previa. Lashawn Patel MD [facility] US ORDERABLES documented in this encounter Visit Diagnoses Not on filedocumented in this encounter Care Teams Oakes Machine Operator Relationship Specialty Start Date End Date Luis Fernando Magana PCP - General Family Practice 12/07/16 01/19/[address] [address] documented as of this encounter
--- OUTSIDE RECORDS SUMMARY | 2021-12-05 19:27 | XMS_ITS | Encounter Summary ---
:1980 Author Organization [place] Address [facility] [place] [address] Care Team Providers Name Role Phone Clinic, [facility] Primary Care Provide r Encounter Details Date Type Department Care Team Description 11/26/2016 Telephone [facility] Ann Marie Sen MD Birthplace [address] [address] [address] [facility] [phone] [place] [address] (Wo rk) Social History Tobacco Use Types Packs/Day Years Used Date Smoking Tobacco: Every Day Cigarettes 0.1 10 Smokeless Tobacco: Never Comments: 5 cigarettes a day Alcohol Use Standard Drinks/Week Comments Yes 0 (1 standard drink = 0.6 oz pure Stoppe d after found out alcohol) Sex Assigned at Date Recorded Female 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 Ann Marie Sen MD TRACK LINER OPERATOR, PGY2 11/26/16 documented in this encounter Plan of Treatment Upcoming Encounters Date Type Specialty Care Team Description 12/20/2021 Office Visit Wound Care Luis Camara, [place] [address] [place], [place] [address] (Wo rk) 01/21/2022 Office Visit Gastroenterology Juanis Levi [address] [place] [phone] Luis Fernando Miles MD [address] [facility] [address] [place] [address] documented as of this encounter Visit Diagnoses Not on filedocumented in this encounter Care Teams Waterproofing Mixer Relationship Specialty Start Date End Date Clinic, [facility] PCP - General 07/14/16 12/06/[address] [place] [address] documented as of this encounter
--- OUTSIDE RECORDS SUMMARY | 2021-12-05 19:27 | XMS_ITS | Encounter Summary ---
:1980 Author Organization [place] Address [address] [facility] [place] [address] Care Team Providers Name Role Phone Clinic, [facility] Primary Care Provide r Encounter Details Date Type Department Care Team Description 11/30/2016 Telephone [facility] Sa blank Olivares MD Birthplace [address] [facility] [address] [place] [address] [place] [phone] Social History Tobacco Use Types Packs/Day Years Used Date Smoking Tobacco: Every Day Cigarettes 0.1 10 Smokeless Tobacco: Never Comments: 5 cigarettes a day Alcohol Use Standard Drinks/Week Comments Yes 0 (1 standard drink = 0.6 oz pure Stoppe d after found out alcohol) Sex Assigned at Date Recorded Female 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 Kayla Olivares MD SKELP PROCESSOR Resident, PGY-3 11/30/2016 11:39 PM documented in this encounter Plan of Treatment Upcoming Encounters Date Type Specialty Care Team Description 12/20/2021 Office Visit Wound Care Luis Camara DPM [address] [place], [place] [phone] (Wo rk) 01/21/2022 Office Visit Gastroenterology Juanis Levi [address] [place] [address] Luis Fernando Miles MD [address] [facility] [address] [address] documented as of this encounter Visit Diagnoses Not on filedocumented in this encounter Care Teams Pay Per Click Strategist Relationship Specialty Start Date End Date Clinic, [facility] PCP - General 07/14/16 12/06/[address] [place] [id number] documented as of this encounter
--- OUTSIDE RECORDS SUMMARY | 2021-12-05 19:27 | XMS_ITS | Encounter Summary ---
:1980 Author Organization [place] Address [address] [facility] [place] [address] Care Team Providers Name Role Phone ChinoLuis Fernando morataya Primary Care Provider Encounter Details Date Type Department Care Team Description 12/20/2016 Orders Only [facility] Tarsha Torres Placenta a ccreta, [facility] MD Ann Marie antepartum ( Primary Devine Dx) [address] [facility] Professional Bldg [facility] [address] [place] [address] Social History Tobacco Use Types Packs/Day Years Used Date Smoking Tobacco: Every Day Cigarettes 0.1 10 Smokeless Tobacco: Never Comments: 5 cigarettes a day Alcohol Use Standard Drinks/Week Comments Yes 0 (1 standard drink = 0.6 oz pure Stoppe d after found out alcohol) Sex Assigned at Date Recorded Female 01/14/2020 10: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 documented as of this encounter Plan of Treatment Upcoming Encounters Date Type Specialty Care Team Description 12/20/2021 Office Visit Wound Care Luis Camara DPM [address] [place] [address] (Wo rk) 01/21/2022 Office Visit Gastroenterology Juanis Levi [address] [place] [address] Luis Fernando Miles MD [address] [facility] [address] [place] [address] Scheduled Orders Name Type Priority Associated Diagnoses Order S chedule Teresa-Operative Procedures Routine Placenta accreta, Ordered: 12/20/2016 Worksheet ( antepartum Section, Immediate Hysterectomy) documented as of this encounter Visit Diagnoses Diagnosis Placenta accreta, antepartum - Primary documented in this encounter Care Teams Geochemistry Teacher Relationship Specialty Start Date End Date Luis Fernando Magana PCP - General Family Practice 12/07/16 01/19/[address] [address] documented as of this encounter
--- OUTSIDE RECORDS SUMMARY | 2021-12-05 19:27 | XMS_ITS | Encounter Summary ---
:1980 Author Organization [place] Address [address] [place] [address] Care Team Providers Name Role Phone Clinic, [facility] Primary Care Provide r Reason for Referral Diagnostic Procedure Outpatient - Closed Specialty Diagnoses / Procedures Referred By Contact Refer red To Contact Diagnoses Chronic hepatitis C without hepatic coma (H) Supervision of high-risk , second trimester Nella Robledo CNM [address] [place], [place] [address] Referral ID Status Reason Start Date Expiration Date Visits Requ ested Visits Authorized [id number] Closed 10/15/2016 10/15/2017 1 1 Encounter Details Date Type Department Care Team Description 10/15/2016 Orders Only [facility] Bridget Robledo n of high-risk , second trimester (Primary Dx); [facility] Nella Wesley CNM Chronic hepatitis C without hepatic coma (H) [place] [address] [facility] [address] [address] [facility] [address] (Work) [place], [place] [phone] [address] (Fax) [phone] Social History Tobacco Use Types Packs/Day Years Used Date Smoking Tobacco: Every Day Cigarettes 0.1 10 Smokeless Tobacco: Never Comments: 5 cigarettes a day Alcohol Use Standard Drinks/Week Comments Yes 0 (1 standard drink = 0.6 oz pure Stoppe d after found out alcohol) Sex Assigned at Date Recorded Female 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 documented as of this encounter Plan of Treatment Upcoming Encounters Date Type Specialty Care Team Description 12/20/2021 Office Visit Wound Care Luis Camara DPM [address] [place], [place] [phone] (Wo rk) 01/21/2022 Office Visit Gastroenterology Juanis Levi [address] [place] [address] Luis Fernando Miles MD 516 [facility] [address] [place] [address] Scheduled Referrals Name Type Priority Associated Diagnoses [facility] Referral Routine Chronic hepati tis C Ordered: 10/15/2016 CONSULT ONLY without hepatic coma (H) Supervision of high-risk , second trimester documented as of this encounter Visit Diagnoses Diagnosis Supervision of high-risk , seco nd trimester - Primary Chronic hepatitis C without hepatic coma (H) documented in this encounter Care Teams Personal Clothing Laundry Aide Relationship Specialty Start Date End Date [facility], [facility] PCP - General 07/14/16 12/06/[address] [place] [address] documented as of this encounter
--- OUTSIDE RECORDS SUMMARY | 2021-12-05 19:27 | XMS_ITS | Encounter Summary ---
:1980 Author Organization [place] Address [address] [place] [address] Care Team Providers Name Role Phone Clinic, [facility] Primary Care Provide r Encounter Details Date Type Department Care Team Description 10/31/2016 Hospital Encounter [facility] Lela Patel MD [address] [facility] [address] [place], [place] [phone] Drug dependence Maternal GalarzaItalia DO [address] [facility] [address] [place] [address] [address] [facility] in 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 documented as of this encounter Medications at Time of Discharge Medication Sig Dispensed Refills Start Date End Date diphenhydrAMINE (BENADRYL Take 1 tablet (25 60 [...] 01/31/2018 LEVOTHROID) 125 MCG mouth daily tablet venlafaxine (EFFEXOR-XR) Take 2 capsules 60 capsule 1 201501/31/2018 150 MG 24 hr (300 mg) by mouth capsuleIndications: Major daily depressive disorder, recurrent episode, moderate (H) buprenorphine (SUBUTEX) 2 Place 1 tablet (2 140 tablet 1 11/29/2016 MG SUBL sublingual mg) under the tabletIndications: tongue 5 times Uncomplicated opioid daily dependence (H) buprenorphine Place 1 Film under 25 Film 0 06/13/2016 HCl-naloxone HCl the tongue 5 times (SUBOXONE) 2-0.5 MG per daily filmIndications: Uncomplicated opioid dependence (H) OMEPRAZOLE PO Take by mouth daily 0 WELLBUTRIN SR 150 MG 12 Take 1 tablet (150 60 tablet 1 09/1811/29/2016 hr tabletIndications: mg) by mouth 2 Major depressive times daily disorder, recurrent episode, moderate (H), Uncomplicated opioid dependence (H) documented as of this encounter Plan of Treatment Upcoming Encounters Date Type Specialty Care Team Description 12/20/2021 Office Visit Wound Care Luis Camara DPM [address] [place] [address] (Wo rk) 01/21/2022 Office Visit Gastroenterology Juanis Levi [address] [place] [address] Luis Fernando Miles MD [address] [facility] [address] [place] [address] documented as of this encounter Procedures Procedure Name Priority Date/Time Associated Comments Diagnosis [facility] COM[facility] Routine 10/31/2016 2:27 PM Drug dependenc e Results for this SINGLE CDT affecting procedur e are in in second trimester the resu lts section. documented in this encounter Results [facility] US Comprehensive Single (10/31/2016 2:27 PM [...] STEPHANI REDDY Study Date: 1:32pm Pat. 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 Nasal bone ?6.5 [...] be vi sualized: Heart / Thorax ?RVOT. [id number] view. Gender: male. MATERNAL STRUCTURES Cervix ?Visualized, [...] care., Thank-you for the opportunity to partici ahll in the care of this patient. If you have questions regarding today's evaluation or if we can be of further service, please contact the [facility]. anomalies may be present but not detected. Procedure Note Italia Galarza, - 10/31/2016Format ting of this note might be different from the original. Comprehensive Pat. Name:Elizabeth REDDY Date:10/31 1:32pm Pat. NO: [id number] MD:JOSE ALFREDO RODRIGUEZ [facility]Geovanna Hassan RDMS :1980Age:36 INDICATION History of delivery, [...] 1 lb 0 oz Calculated by Flora ([id number]) Head / Face / Neck Biometry: Millinery Teacher 3.6 mm Nasal bone 6.5 mm [...] be vi sualized: Heart / Thorax RVOT. [id number] vi ew. Gender: male. MATERNAL STRUCTURES Cervix [...] 6) Marginal placenta previa. Lashawn Patel MD [facility] US ORDERABLES documented in this encounter Visit Diagnoses Diagnosis Drug dependence affecting in s econd trimester documented in this encounter Care Teams Access Clerk Relationship Specialty Start Date End Date [facility], [facility] PCP - General 07/14/16 12/06/[address] [place] [address] documented as of this encounter
--- OUTSIDE RECORDS SUMMARY | 2021-12-05 19:27 | XMS_ITS | Encounter Summary ---
:1980 Author Organization [place] Address [address] [facility] [place] [address] Care Team Providers Name Role Phone Clinic, [...] [address] [place] (SUBUTEX) 2 MG) [address] [place] [address] [phone] (Wo rk) Social History Tobacco Use Types Packs/Day Years Used Date Smoking Tobacco: Every Day Cigarettes 0.1 10 Smokeless Tobacco: Never Comments: 5 cigarettes a day Alcohol Use Standard Drinks/Week Comments Yes 0 (1 standard drink = 0.6 oz pure Stoppe d after found out alcohol) Sex Assigned at Date Recorded Female 01/14/2020 10:57 AM DIRECTOR OF ONCOLOGY documented as of this encounter Miscellaneous Notes Telephone Encounter - Sarah Calvert MA - 10/11/2016 9:35 AM CDT Called [facility] to clarify the need for this [...] (SUBUTEX) Dose: 2 MG Pharmacy confirmed as [facility] - [place], [place] - [address] [facility] [id number] Insurance Name: Submit via covermymeds Beatty: [id number] Filter Press Pumper placed form in Dr. Alfredo's folder Dora Merchant October 11, 2016 at 8:28 AM documented in this encounter Plan of Treatment Upcoming Encounters Date Type Specialty Care Team Description 12/20/2021 Office Visit Wound Care Luis Camara DPM [address] [place], [place] [phone] (Wo rk) 01/21/2022 Office Visit Gastroenterology Juanis Levi [address] [place] [phone] Luis Fernando Miles MD 6 [facility] [address] [place] [address] documented as of this encounter Visit Diagnoses Not on filedocumented in this encounter Care Teams Stretcher Leveler Operator Relationship Specialty Start Date End Date Clinic, [facility] PCP - General 07/14/16 12/06/16 [facility] [place], [place] [id number] documented as of this encounter
--- OUTSIDE RECORDS SUMMARY | 2021-12-05 19:27 | XMS_ITS | Encounter Summary ---
:1980 Author Organization [place] Address [address] [facility] [place] [address] Care Team Providers Name Role Phone Clinic, [facility] Primary Care Provide r Reason for Visit Reason Onset Date Comments Prior Auth - Medication 10/11/2016 WELLBUTRIN SR 15 0 MG Encounter Details Date Type Department Care Team Description 10/11/2016 Telephone [facility] Edgar Alfredo Pri or Auth - Medication Clinic Ashly VÁSQUEZ (WELLBUTRIN SR 150 MG ) [address] [place] [phone] (Wo rk) Social History Tobacco Use Types Packs/Day Years Used Date Smoking Tobacco: Every Day Cigarettes 0.1 10 Smokeless Tobacco: Never Comments: 5 cigarettes a day Alcohol Use Standard Drinks/Week Comments Yes 0 (1 standard drink = 0.6 oz pure Stoppe d after found out alcohol) Sex Assigned at Date Recorded Female 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 Alfredo's folder Dora Merchant October 11, 2016 at 8:43 AM documented in this encounter Plan of Treatment Upcoming Encounters Date Type Specialty Care Team Description 12/20/2021 Office Visit Wound Care Luis Camara DPM [address] [place], [place] [phone] (Wo rk) 01/21/2022 Office Visit Gastroenterology Juanis Levi [address] [place] [address] Luis Fernando Miles MD [address] [facility] [address] [place], [place] [address] documented as of this encounter Visit Diagnoses Not on filedocumented in this encounter Care Teams Waxer Operator Relationship Specialty Start Date End Date Clinic, [facility] PCP - General 07/14/16 12/06/[address] [place], [place] [address] [address] documented as of this encounter
--- OUTSIDE RECORDS SUMMARY | 2021-12-05 19:27 | XMS_ITS | Encounter Summary ---
:1980 Author Organization [place] Address [address] [facility] [address] Care Team Providers Name Role Phone Clinic, [facility] Primary Care Provide r Reason for Visit Reason Onset Date Comments Results 10/15/2016 Encounter Details Date Type Department Care Team Description 10/15/2016 Telephone [facility] Nurse, [facility] Results [facility] Profession al Building 3rd [facility] [address] [facility] [place] [phone] Social History Tobacco Use Types Packs/Day Years Used Date Smoking Tobacco: Every Day Cigarettes 0.1 10 Smokeless Tobacco: Never Comments: 5 cigarettes a day Alcohol Use Standard Drinks/Week Comments Yes 0 (1 standard drink = 0.6 oz pure Stoppe d after found out alcohol) Sex Assigned at Date Recorded Female 01/14/2020 10:57 AM DIRECTOR CRITICAL CARE documented as of this encounter Miscellaneous Notes [...] Visit Wound Care Luis Camara DPM [address] [place], [place] [address]135 (Wo rk) 01/21/2022 Office Visit Gastroenterology Juanis Levi [address] [place] [phone] Luis Fernando Miles MD 6 [facility] [address] [place], [place] [address] documented as of this encounter Visit Diagnoses Not on filedocumented in this encounter Care Teams Sign Language Instructor Relationship Specialty Start Date End Date Clinic, [facility] PCP - General 07/14/16 12/06/[address] [place] [address] documented as of this encounter
--- OUTSIDE RECORDS SUMMARY | 2021-12-05 19:27 | XMS_ITS | Encounter Summary ---
:1980 Author Organization [place] Address [address] [facility] [place] [address] Care Team Providers Name Role Phone Luis Fernando Magana Primary Care Provider Reason for Visit Auth/Cert Specialty Diagnoses / Procedures Referred By Contact Refer red To Contact jackhammer splitter operator Diagnoses Maternity*JEAN MARIE: 03/07/2017 Rupture premature rupture of membranes (PPROM) delivered, current hospitalization [facility] [address] [place] [phone] Phone: Referral ID Status Reason Start Date Expiration Date Visits Requ ested Visits Authorized [id number] 12/09/2016 12/09/2017 1 1 Encounter Details Date Type Department Care Team Description 12/12/2016 Hospital Encounter [facility] [place] [address] [place] [address] Social History Tobacco Use Types Packs/Day Years Used Date Smoking Tobacco: Every Day Cigarettes 0.1 10 Smokeless Tobacco: Never Comments: 5 cigarettes a day Alcohol Use Standard Drinks/Week Comments Yes 0 (1 standard drink = 0.6 oz pure Stoppe d after found out alcohol) Sex Assigned at Date Recorded Female 01/14/2020 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 NO: [id number] Referring ??: CHRIST LOZADA Site: [facility] Movie Producer: Jay Lu : 1980 Age: 36 INDICATION Premature Rupture of Membranes ( PPROM), Complete Previa. METHOD [facility] ANTEPARTUM inpatient exam, Transabd ominal and transvaginal [...] The [facility]. Please see MapSense for further documentation regarding plan of care. If you have questions regarding today's evaluation or if we can be of further service, please contact the [facility]. anomalies may be present but not detected. Procedure Note CrossNora MD - 12/12/2016For matting of this note might be different from the original. Cx TV Pat. Name:Elizabeth REDDY Date:12/12 7:48am Pat. NO: [id number] MD:CHRIST BHAT ON [facility]Yesenia Sen RDMS :1980Age:36 INDICATION Premature Rupture of Membranes ( PPROM), Complete Previa. METHOD [facility] ANTEPARTUM inpatient exam, Transabd ominal and transvaginal [...] the end of the ultrasound. Please see MapSense for further documentation regarding plan of care. [...] placental-myometrial interface appears normal. Nora Mohamud [facility] US ORDERABLES documented in this encounter Visit Diagnoses Not on filedocumented in this encounter Care Teams Supervisor Bleach Plant Relationship Specialty Start Date End Date Luis Fernando Magana PCP - General Family Practice 12/07/16 01/19/[address] [address] documented as of this encounter
--- OUTSIDE RECORDS SUMMARY | 2021-12-05 19:27 | XMS_ITS | Encounter Summary ---
:1980 Author Organization [place] Address [address] [facility] [place] [address] Care Team Providers Name Role Phone Luis Fernando Magana Primary Care Provider Reason for Visit Auth/Cert Specialty Diagnoses / Procedures Referred By Contact Refer red To Contact garnisher Diagnoses Maternity*JEAN MARIE: 03/07/2017 Rupture premature rupture of membranes (PPROM) delivered, current hospitalization [facility] [address] [place] [address] Phone: Referral ID Status Reason Start Date Expiration Date Visits Requ ested Visits Authorized [id number] 12/09/2016 12/09/2017 1 1 Encounter Details Date Type Department Care Team Description 12/08/2016 Hospital Encounter [facility] Riccardo eddy [address] [place], [place] [phone] Social History Tobacco Use Types Packs/Day Years Used Date Smoking Tobacco: Every Day Cigarettes 0.1 10 Smokeless Tobacco: Never Comments: 5 cigarettes a day Alcohol Use Standard Drinks/Week Comments Yes 0 (1 standard drink = 0.6 oz pure Stoppe d after found out alcohol) Sex Assigned at Date Recorded Female 01/14/2020 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 NO: [id number] Referring ??: CHRIST LOZADA Site: [facility] Mortgage Banker: Jay Lu : 1980 Age: 36 INDICATION Premature Rupture of Membranes ( PPROM) Complete previa. METHOD Transabdominal ultrasound examination, [facility] ANTEPARTUM inpatient exam. View: Suboptimal view: [...] 2 lb 1 ?oz Calculated by ?Hadlock ([id number]) Head / Face / Neck Biometry: Rn Provider Relations ?3.9 ?mm ? Amniotic Fluid / FHR: [...] Pat. Name:Elizabeth REDDY Date:12/08 9:10am Pat. NO: [id number] MD:CHRIST BHAT ON [facility]Yesenia Sen RDMS :1980Age:36 INDICATION Premature Rupture of Membranes ( PPROM) Complete previa. METHOD Transabdominal ultrasound examination, [facility] ANTEPARTUM inpatient exam. View: Suboptimal view: [...] 2 lb 1 oz Calculated by Flora ([id number]) Head / Face / Neck Biometry: Rn Provider Relations 3.9 mm Amniotic Fluid / FHR: AF [...] consistent with PPROM. Rossana Barker MD [facility] US ORDERABLES documented in this encounter Visit Diagnoses Not on filedocumented in this encounter Care Teams Chief Human Resources Officer Relationship Specialty Start Date End Date Luis Fernando Magana PCP - General Family Practice 12/07/16 01/19/18 [place] [id number] documented as of this encounter
--- OUTSIDE RECORDS SUMMARY | 2021-12-05 19:27 | XMS_ITS | Encounter Summary ---
:1980 Author Organization [place] Address [address] [facility] [place] [address] Care Team Providers Name Role Phone Clinic, [facility] Primary Care Provide r Encounter Details Date Type Department Care Team Description 10/10/2016 Orders Only [facility] Karen Patel e dependence (H); [facility] Laborato ry MD Lashawn High-risk , first trimester; [address] 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 [...] C RNA quantitative (10/10/2016 1:52 PM CDT) [facility] Method Time Signature HCV RNA Quant [id number],[id number] HCVND^HCV 10/14/2016 [facility] IU/ml (A) RNA Not 12:34 PM CDT [facility] [IU]/mL BANK Comment: The LEONARDO AmpliPrep/LEONARDO [...] (H) <1.2 Log IU/mL 10/14/2016 12:34 PM [facility] BANK Specimen Anatomical Collection Method Collection Time Receive d Time (Source) Location / / Volume Laterality Blood specimen 10/10/2016 1:52 PM 017 1:55 (specimen) CDT PM CDT Violeta Fagan FREIGHT CONDUCTOR CNM LAB - BLOOD ORDERABLES Performing Organization Address City/State/ZIP Code Phon e Number [facility] [address] [place] [address] [place] (ABNORMAL) Hepatic Panel (10/10/2016 1:52 PM CDT) [facility] Method Time Signature Bilirubin Direct 0.1 0.0 - 0.2 10/10/2016 [facility] F mg/dL 3:12 PM CDT [facility] Bilirubin Total 0.4 0.2 - 1.3 10/10/2016 [facility] mg/dL 3:12 PM CDT [facility] Albumin 2.8 (L) 3.4 - 5.0 10/10/2016 [place] g/dL 3:12 PM CDT [facility] Protein Total 7.1 6.8 - 8.8 10/10/2016 [facility] g/dL 3:12 PM CDT [facility] Alkaline 60 40 - 150 10/10/2016 [facility] Phosphatase U/L 3:19 PM CDT [facility] ALT 27 0 - 50 U/L 10/10/2016 [facility] 3:12 PM CDT [facility] AST 17 0 - 45 U/L 10/10/2016 [facility] 3:12 PM CDT [facility] Specimen Anatomical Collection Method Collection Time Receive d Time (Source) Location / / Volume Laterality Blood specimen 10/10/2016 1:52 PM 017 1:55 (specimen) CDT PM CDT Violeta Fagan APRN [facility] LAB - BLOOD ORDERABLES Performing Organization Address City/[facility] Phon e Number [address] [address] [facility] TSH with free T4 reflex (10/10/2016 1:52 PM CDT) P athologist Signature TSH 1.66 0.40 - 4.00 10/10/[address] [facility] mU/L 3:19 PM CDT [facility] Specimen Anatomical Collection Method Collection Time Receive d Time (Source) Location / / Volume Laterality Blood specimen 10/10/2016 1:52 PM 017 1:55 (specimen) CDT PM CDT Violeta Fagan APRN [facility] LAB - BLOOD ORDERABLES Performing Organization Address City/[facility] Phon e Number [place] [phone] [facility] (ABNORMAL) Hepatitis C antibody (10/10/2016 1:52 PM CDT) Patholo gist Method Time Signature Hepatitis C Reactive (A) NR^Nonrea 10/11/2016 [facility] ctive 1:18 PM CDT [facility] Comment: A reactive result indicates one [...] LAB - BLOOD ORDERABLES Performing Organization Address City/[facility]/ZIP Code Phon e Number [address] HIV Antigen Antibody Combo [[id number]] (10/10/2016 1:52 PM CDT) [facility] Method Time Signature HIV Antigen Nonreactive NR^Nonrea 10/11/2016 [facility] Antibody ctive 1:18 PM CDT [facility] Comment: HIV-1 p24 Ag & HIV-1/HIV-2 Ab N ot Detected Specimen Anatomical Collection Method Collection Time Receive d Time (Source) Location / / Volume Laterality Blood specimen 10/10/2016 1:52 PM 017 1:55 (specimen) CDT PM CDT Violeta STEVENS LAB - BLOOD ORDERABLES Performing Organization Address City/[facility]/ZIP Code Phon e Number [address] Hepatitis B Surface Antigen [[id number]] (10/10/2016 1:52 PM CDT) [facility] Method Time Signature Hep B Surface Nonreactive NR^Nonrea 10/11/2016 [facility] Agn ctive 1:18 PM CDT [facility] Specimen Anatomical Collection Method Collection Time Receive d Time (Source) Location / / Volume Laterality Blood specimen 10/10/2016 1:52 PM 017 1:55 (specimen) CDT PM CDT Violeta Fagan APRN, CNM LAB - BLOOD ORDERABLES Performing Organization Address City/[facility]/ZIP Code Phon e Number [address] Rubella Antibody IgG Quantitative [[id number]] (10/10/2016 1:52 PM CDT) Analysis Performed At [facility] Time Signature Rubella Antibody 8 IU/mL 10/11/2016 [place] F IgG Quantitative 1:44 PM CDT [facility] Comment: Equivocal, please recollect. Reference Range: ??Unvaccinated Negative 0-7 IU/mL Vaccinated or previous exposure Positive 10 IU/ml or greater Specimen Anatomical Collection Method Collection Time Receive d Time (Source) Location / / Volume Laterality Blood specimen 10/10/2016 1:52 PM 017 1:55 (specimen) CDT PM CDT Violeta Fagan APRN, CNM LAB - BLOOD ORDERABLES Performing Organization Address City/[facility]/ZIP Code Phon e Number [facility] [address] Anti Treponema [[id number]] (10/10/2016 1:52 PM CDT) Analysis Performed At Patho logist Time Signature Treponema Negative NEG^Negati 10/11/2016 [facility] ve 10:21 AM CDT [facility] Specimen Anatomical Collection Method Collection Time Receive d Time (Source) Location / / Volume Laterality Blood specimen 10/10/2016 1:52 PM 017 1:55 (specimen) CDT PM CDT Violeta Fagan APRN, CNM LAB - BLOOD ORDERABLES Performing Organization Address City/[facility]/ZIP Code Phon e Number [address] (ABNORMAL) CBC with Platelets Differential [[id number]] (10/10/2016 1:52 PM CDT) Patholo gist Method Time Signature WBC 5.3 4.0 - 10/10/2016 [facility] 11.0 2:52 PM CDT [facility] 10e9/L [facility] RBC Count 3.64 (L) 3.8 - 5.2 10/10/2016 [facility] 10e12/L 2:52 PM CDT [facility] Hemoglobin 11.1 (L) 11.7 - 10/10/2016 [facility] 15.7 g/dL 2:52 PM CDT [facility] Hematocrit 32.7 (L) 35.0 - 10/10/2016 [facility] 47.0 % 2:52 PM CDT [facility] MCV 90 78 - 100 10/10/2016 [facility] fl 2:52 PM CDT [facility] MCH 30.5 26.5 - 10/10/2016 [facility] 33.0 pg 2:52 PM CDT [facility] MCHC 33.9 31.5 - 10/10/2016 [facility] 36.5 g/dL 2:52 PM T [facility] RDW 13.1 10.0 - 10/10/2016 [facility] 15.0 % 2:52 PM T [facility] Platelet Count 186 150 - 450 10/10/2016 [facility] 10e9/L 2:52 PM T [facility] Diff Method Automated 10/10/2016 [facility] Method 2:52 PM [facility] % Neutrophils 61.4 % 10/10/2016 [facility] 2:52 PM T [facility] % Lymphocytes 29.2 % 10/10/2016 [facility] 2:52 PM [facility] % Monocytes 6.2 % 10/10/2016 [facility] 2:52 PM T [facility] % Eosinophils 2.8 % 10/10/2016 [facility] 2:52 PM [facility] % Basophils 0.2 % 10/10/2016 [facility] 2:52 PM T [facility] % Immature 0.2 % 10/10/2016 [facility] Granulocytes 2:52 PM [facility] Nucleated RBCs 0 0 /100 10/10/2016 [facility] 2:52 PM [facility] Absolute 3.3 1.6 - 8.3 10/10/2016 [facility] Neutrophil 10e9/L 2:52 PM T [facility] Absolute 1.6 0.8 - 5.3 10/10/2016 [facility] Lymphocytes 10e9/L 2:52 PM T [facility] Absolute 0.3 0.0 - 1.3 10/10/2016 [facility] Monocytes 10e9/L 2:52 PM [facility] Absolute 0.2 0.0 - 0.7 10/10/2016 [facility] Eosinophils 10e9/L 2:52 PM T [facility] Absolute 0.0 0.0 - 0.2 10/10/2016 [facility] Basophils 10e9/L 2:52 PM T [facility] Abs Immature 0.0 0 - 0.4 10/10/2016 [facility] Granulocytes 10e9/L 2:52 PM CDT [facility] Absolute 0.0 10/10/2016 [facility] Nucleated RBC 2:52 PM CDT [facility] Specimen Anatomical Collection Method Collection Time Receive d Time (Source) Location / / Volume Laterality Blood specimen 10/10/2016 1:52 PM 017 1:55 (specimen) CDT PM CDT Violeta Fagan APRN CNCamryn LAB - BLOOD ORDERABLES Performing Organization Address City/[facility]/ZIP Code Phon e Number [place] [address] [place] [address] [facility] ABO/Rh Type and Screen [[id number]] (10/10/2016 1:52 PM CDT) [facility] gist Method Time Signature ABO B 10/10/2016 [facility] 6:33 PM CDT [facility] RH(D) Pos [facility] Antibody Neg 10/10/2016 [facility] Screen 6:33 PM CDT [facility] Test Valid University 10/10/2016 [facility] Only At [place] 4:54 PM CDT [facility] BANK w Hospital Specimen 10/13/2016 10/10/2016 [facility] Expires 4:54 PM CDT [facility] Specimen Anatomical Collection Method Collection Time Receive d Time (Source) Location / / Volume Laterality Blood specimen 10/10/2016 1:52 PM 017 1:56 (specimen) CDT PM CDT Violeta Fagan APRN, CNM LAB - BLOOD BANK TEST ORD ER Performing Organization Address City/[facility]/ZIP [facility] Phon e Number [address] [address] [facility] 25- [place]-Vitamin D (10/10/2016 1:52 PM CDT) P athologist Signature Vitamin D 51 20 - 75 10/11/2016 [facility] Deficiency ug/L 1:18 PM CDT [facility] Comment: Season, race, dietary intake, and treatm ent affect the concentration of 82-uveuztf-Bguttlz D. Values may decreas e during winter [...] Organization Address City/State/ZIP Code Phon e Number [address] documented in this encounter Visit Diagnoses Diagnosis Opiate dependence (H) Opioid type dependence, unspecified High-risk , first trimester Hypothyroidism affecting in fi rst trimester Chronic hepatitis C without hepatic coma (H) documented in this encounter Care Teams Belt Loop Cutter Relationship Specialty Start Date End Date Clinic, [facility] PCP - General 07/14/16 12/06/[address] [place] [address] documented as of this encounter
--- OUTSIDE RECORDS SUMMARY | 2021-12-05 19:27 | XMS_ITS | Encounter Summary ---
:1980 Author Organization [place] Address [address] [place] [address]. 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 documented as of this encounter OR [...] ASA Classification: 3 Case is suitable for: Divshot [facility] Anesthetic techniques and relevant risks discussed: Regional and GA Invasive monitoring and risk discussed: Yes Types: Possibility and Risk of blood transfusion discussed: Yes NPO instructions given: Other (comment) Additional anesthetic preparation and risks discussed: Invasive monitoring Needs early admission to pre-op area: Yes Other: PAC Resident/INSOLE AND OUTSOLE SPLITTER Anesthesia Assessment: Mid-Level Provider/Resident: Date: Time: Attending [...] rk) 01/21/2022 Office Visit Gastroenterology Juanis Levi [address] [place] [address] Luis Fernando Miles MD [address] [address] documented as of this encounter Visit Diagnoses Not on filedocumented in this encounter Care Teams Textile Stylist Relationship Specialty Start Date End Date Luis Fernando Magana PCP - General Family Practice 12/07/16 01/19/[address] [address] documented as of this encounter
--- OUTSIDE RECORDS SUMMARY | 2021-12-05 19:27 | XMS_ITS | Encounter Summary ---
:1980 Author Organization [place] Address [address] [facility] [place] [address] Care Team Providers Name Role Phone Clinic, [facility] Primary Care Provide r Reason for Visit Reason Onset Date Comments Medication Request 10/07/2016 Bridge for Subutex Encounter Details Date Type Department Care Team Description 10/07/2016 Telephone [facility] Edgar Alfredo, [facility] ication Request Clinic Ashly VÁSQUEZ (Bridge for Subutex ) [address] [place] [address] [place] [address] (Wo rk) Social History Tobacco Use Types Packs/Day Years Used Date Smoking Tobacco: Every Day Cigarettes 0.1 10 Smokeless Tobacco: Never Comments: 5 cigarettes a day Alcohol Use Standard Drinks/Week Comments Yes 0 (1 standard drink = 0.6 oz pure Stoppe d after found out alcohol) Sex Assigned at Date Recorded Female 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 Mark Roldan Offal Roller Telephone Encounter - Edgar Alfredo MD - [...] would work for pt. Pt contact info: [phone] [facility] in [place]. Mark Roldan Offal Roller documented in this encounter Plan of Treatment Upcoming Encounters Date Type Specialty Care Team Description 12/20/2021 Office Visit Wound Care Luis Camara DPM [address] [place] [address] (Wo rk) 01/21/2022 Office Visit Gastroenterology Juanis Levi 2450 [place] [phone] Luis Fernando Miles MD 6 [facility] [address] [place], [place] [address] documented as of this encounter Visit Diagnoses Diagnosis Uncomplicated opioid dependence (H) Opioid type dependence, unspecified documented in this encounter Care Teams Ferris Wheel Attendant Relationship Specialty Start Date End Date Clinic, [facility] PCP - General 07/14/16 12/06/16 [address] [place] [address] documented as of this encounter
--- OUTSIDE RECORDS SUMMARY | 2021-12-05 19:27 | XMS_ITS | Encounter Summary ---
:1980 Author Organization [place] Address [address] [facility] [place] [address] Care Team Providers Name Role Phone Clinic, [facility] Primary Care Provide r Reason for Visit Reason Onset Date Comments Addiction Problem Erroneous encounter-disregard 12/01/2016 Encounter Details Date Type Department Care Team Description 11/26/2016 Office Visit [facility] Edgar Alfredo ERRONEOUS Clinic Ashly Gauthier MD ENCOUNTER--DISREGARD [address] [place] (Primary Dx) [address] [place] [address] Social History Tobacco Use Types Packs/Day Years Used Date Smoking Tobacco: Every Day Cigarettes 0.1 10 Smokeless Tobacco: Never Comments: 5 cigarettes a day Alcohol Use Standard Drinks/Week Comments Yes 0 (1 standard drink = 0.6 oz pure Stoppe d after found out alcohol) Sex Assigned at Date Recorded Female 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 Please disregard. documented in this encounter Plan of Treatment Upcoming Encounters Date Type Specialty Care Team Description 12/20/2021 Office Visit Wound Care Luis Camara, [place] [address] [facility] [place], [place] [address] (Wo rk) 01/21/2022 Office Visit Gastroenterology Juanis Levi [address] [place] [phone] Luis Fernando Miles MD 516 [facility] [address] [place] [address] documented as of this encounter Visit Diagnoses Diagnosis ERRONEOUS ENCOUNTER--DISREGARD - Primary documented in this encounter Care Teams Mushroom Growth Media Mixer Relationship Specialty Start Date End Date Clinic, [facility] PCP - General 07/14/16 12/06/[address] [place] [address] documented as of this encounter
--- OUTSIDE RECORDS SUMMARY | 2021-12-05 19:27 | XMS_ITS | Encounter Summary ---
:1980 Author Organization [place] Address [address] [facility] [place] [address] Care Team Providers Name Role Phone Clinic, [facility] Primary Care Provide r Reason for Visit Reason Onset Date Comments Medication Request 11/28/2016 Bridge for Subutex, Wellbutrin Encounter Details Date Type Department Care Team Description 11/28/2016 Telephone [facility] Edgar Alfredo, Med ication Request Clinic Ashly VÁSQUEZ (Bridge for Subutex, [address] [place] Wellbutrin ) [address] [place] [phone] (Wo rk) Social History Tobacco Use Types Packs/Day Years Used Date Smoking Tobacco: Every Day Cigarettes 0.1 10 Smokeless Tobacco: Never Comments: 5 cigarettes a day Alcohol Use Standard Drinks/Week Comments Yes 0 (1 standard drink = 0.6 oz pure Stoppe d after found out alcohol) Sex Assigned at Date Recorded Female 01/14/2020 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 Dec 23, 2016 9:30 AM SENIOR DATA MINING ANALYST Return Visit with Edgar Alfredo MD [facility] ?? [address] [facility] [address] Controlled substance agreement on file: No. Documentation in problem list reviewed: Yes Processing: Call/fax RX monitoring program ([place]) reviewed: HEEL SORTER reviewed- no concerns [place] profile: [email or web address] Santosh Pyle RN Telephone Encounter - Mark [...] last appt on 11/26. Pt cell # [phone] Pt house # [phone] buprenorphine (SUBUTEX) 2 MG SUBL sublingual tablet Last Written Prescription Date: 10/10/16 Last Fill Quantity: 140, # refills: 1 Last Office Visit with [facility] or Health prescribing provider: 10/10/16 Next 5 appointments (look out 90 days) Dec 23, 2016 9:30 AM SENIOR DATA MINING ANALYST Return Visit with Edgar Alfredo MD [facility] [place] [address] [facility] [phone] WELLBUTRIN SR 150 MG 12 hr tablet Last Written Prescription Date: Last Fill Quantity: 60; # refills: 1 Last Office Visit with [facility], P or [facility] prescribing provider: 10/10/16 Next 5 appointments (look out 90 days) Dec 23, 2016 9:30 AM SENIOR DATA MINING ANALYST Return Visit with Edgar Alfredo MD [facility] ([facility]) [address] [place], [place] [address] [address] [facility] [phone] Last PHQ-9 score on record= PHQ-9 SCORE 06/21/2013 Total Score 15 Lab Results Component Value Date AST 10/10/2016 Lab Results Component Value Date ALT 10/10/2016 documented in this encounter Plan of Treatment Upcoming Encounters Date Type Specialty Care Team Description 12/20/2021 Office Visit Wound Care Luis Camara DPM [address] [place] [address] (Wo rk) 01/21/2022 Office Visit Gastroenterology Juanis Levi [address] [place] [phone] Luis Fernando Miles MD 516 [facility] [address] [place] [address] documented as of this encounter Visit Diagnoses Diagnosis Gastroesophageal reflux disease, esophag itis presence not specified - Primary Uncomplicated opioid dependence (H) Opioid type dependence, unspecified Major depressive disorder, recurrent epi sode, moderate (H) Major depressive disorder, recurrent epi sode, moderate documented in this encounter Care Teams Mental Health Professional Relationship Specialty Start Date End Date Clinic, [facility] PCP - General 07/14/16 12/06/[address] [place], [place] [address] [address] documented as of this encounter
--- OUTSIDE RECORDS SUMMARY | 2021-12-05 19:27 | XMS_ITS | Encounter Summary ---
:1980 Author Organization [place] Address [address] [facility] [place] [address] Care Team Providers Name Role Phone Luis Fernando Magana Primary Care Provider Reason for Visit Auth/Cert Specialty Diagnoses / Procedures Referred By Contact Refer red To Contact land acquisition analyst Diagnoses Maternity*JEAN MARIE: 03/07/2017 Rupture premature rupture of membranes (PPROM) delivered, current hospitalization Ur [facility] [address] [place] [address] Phone: Referral ID Status Reason Start Date Expiration Date Visits Requ ested Visits Authorized [id number] 12/09/2016 12/09/2017 1 1 Encounter Details Date Type Department Care Team Description 12/16/2016 Hospital Encounter [facility] Asaf Manzanares Maternal MD [facility] Center [facility] [employer] B[employer] [address] [place], [place] [address] [place] [address] [phone] (Wo rk) Social History Tobacco Use Types Packs/Day Years Used Date Smoking Tobacco: Every Day Cigarettes 0.1 10 Smokeless Tobacco: Never Comments: 5 cigarettes a day Alcohol Use Standard Drinks/Week Comments Yes 0 (1 standard drink = 0.6 oz pure Stoppe d after found out alcohol) Sex Assigned at Date Recorded Female 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 NO: [id number] Referring ??: CHRIST LOZADA Site: [facility] Vocational Evaluator: Jay Lu : 1980 Age: 36 INDICATION [...] Pat. Name:Clovis REDDYvioletscarlet Date:12/16 8:43am Pat. NO: [id number] MD:CHRIST BHAT ON [facility]Yesenia Sen RDMS :1980Age:36 INDICATION Premature [...] stent with known PPROM. Erum Manzanares MD [facility] US ORDERABLES documented in this encounter Visit Diagnoses Not on filedocumented in this encounter Care Teams Lane Marker Installer Relationship Specialty Start Date End Date Luis Fernando Magana PCP - General Family Practice 12/07/16 01/19/18 [place] [address] documented as of this encounter
--- OUTSIDE RECORDS SUMMARY | 2021-12-05 19:27 | XMS_ITS | Encounter Summary ---
:1980 Author Organization [place] Address [address] [place] [address] Care Team Providers Name Role Phone Clinic, [facility] Primary Care Provide r Encounter Details Date Type Department Care Team Description 10/10/2016 Hospital Encounter [facility] Lela Patel MD [address] [facility] [id number] Drug dependence Maternal RaukRichard MD [address] [place], [place] [address] [address] [address] affecting Medicine Center in [facility] [address] [place] [address] Social History Tobacco Use Types Packs/Day Years Used Date Smoking Tobacco: Every Day Cigarettes 0.1 10 Smokeless Tobacco: Never Comments: 5 cigarettes a day Alcohol Use Standard Drinks/Week Comments Yes 0 (1 standard drink = 0.6 oz pure Stoppe d after found out alcohol) Sex Assigned at Date Recorded Female 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 NO: [id number] Referring ??: LUDY HOANG BURN Site: [facility] Stratigraphy Teacher: Tammi Parra RDMS : 1980 Age: 36 [...] Pat. Name:Elizabeth REDDY Date:10/10 2:07pm Pat. NO: [id number] MD:JOSE ALFREDO RODRIGUEZ [facility]JOHAN Song :1980Age:36 INDICATION History of delivery, History [...] length with no funneling. Lashawn Patel MD [facility] US ORDERABLES documented in this encounter Visit Diagnoses Diagnosis Drug dependence affecting in s econd trimester documented in this encounter Care Teams It Systems Engineer Relationship Specialty Start Date End Date Clinic, [facility] PCP - General 07/14/16 12/06/[address] [place] [id number] documented as of this encounter
--- OUTSIDE RECORDS SUMMARY | 2021-12-05 19:27 | XMS_ITS | Encounter Summary ---
:1980 Author Organization [place] Address [address] [facility] [place] [address] Care Team Providers Name Role Phone Clinic, [facility] Primary Care Provide r Reason for Visit Reason Comments Addiction Problem Encounter Details Date Type Department Care Team Description 10/10/[address] 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 [place] Board of Pharmacy Data Base Reviewed: YES; [...] BREAST SURGERY ABcess drained ??? SECTION ??? HVAC INSTALLATION TECHNICIAN SURGERY ??? ORTHOPEDIC SURGERY ??? THORACIC [...] Panel 13 Result Value Ref Range Cannabinoids (48-mwy-3-jthceen-5-FUC) Not Detected NDET^Not Detected ng/mL Phencyclidine (Phencyclidine) [...] ng/mL 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 FOR GRANULAR OPERATOR USE OF HIGH RISK MEDICATION High Risk [...] visit in 2 MONTHS Edgar Alfredo MD [facility] PRIMARY CARE documented in this encounter Plan of Treatment Upcoming Encounters Date Type Specialty Care Team Description 12/20/2021 Office Visit Wound Care Luis Camara DPM 9[address] [place] [address] (Wo rk) 01/21/2022 Office Visit Gastroenterology Juanis Levi [address] [place] [address] Luis Fernando Miles MD 516 [facility] [address] [place], [place] [phone] documented as of this encounter Procedures Procedure Name Priority Date/Time Associated Diagnosis Comme nts URINE DRUGS OF Routine 10/10/2016 3:06 PM Uncomplicated opioid Results for this ABUSE SCREEN PANEL CDT dependence (H) procedu re are in 13 the results section. documented in this encounter Results (ABNORMAL) Urine Drugs of Abuse Screen Panel 13 (10/10/2016 3:06 PM CDT) [facility] Method Time Signature Cannabinoids Not Detected NDET^Not 10/10/2016 LAB (64-cgk-7-carbox Detected 3:17 PM CDT y-9-THC) ng/mL Comment: [...] be used for medical purposes only. Order [id number] for confirmation or indivi dual confirmation tests to [facility]. Specimen Anatomical Collection Method Collection Time Receive d Time (Source) Location / / Volume Laterality Urine specimen 10/10/2016 3:06 PM 017 3:07 (specimen) CDT PM CDT Edgar Alfredo MD LAB - URINE ORDERABLES Performing Organization Address City/State/[place] [address] [facility] PRIMARY CARE [facility] [address] [address] LAB documented in this encounter Visit Diagnoses Diagnosis Uncomplicated opioid dependence (H) Opioid type dependence, unspecified Major depressive disorder, recurrent epi sode, moderate (H) Major depressive disorder, recurrent epi sode, moderate documented in this encounter Care Teams Rn Immunology Relationship Specialty Start Date End Date Clinic, [facility] PCP - General 07/14/16 12/06/[address] [place] [address] documented as of this encounter
--- OUTSIDE RECORDS SUMMARY | 2021-12-05 19:27 | XMS_ITS | Encounter Summary ---
:1980 Author Organization [place] Address [address] [place] [address] Care Team Providers Name Role Phone Clinic, [facility] Primary Care Provide r Reason for Visit Reason Comments Ultrasound L2/TV-LLP and h/o uterine ru pture, PTD Encounter Details Date Type Department Care Team Description 10/31/2016 Office Visit [facility] Ilana Patel MD [address] [facility] [address] [place], [place] [phone] Suspected anomaly, antepartum, not applicable or unspecified fetus (Primary Dx); Maternal Italia Galarza DO [address] [facility] [address] [place] [address] Placenta previa, second trimester; Medicine Center H/O delivery, currently , second trimester [place] [address] [place], [place] [address] Social History Tobacco Use Types Packs/Day Years Used Date Smoking Tobacco: Every Day Cigarettes 0.1 10 Smokeless Tobacco: Never Comments: 5 cigarettes a day Alcohol Use Standard Drinks/Week Comments Yes 0 (1 standard drink = 0.6 oz pure Stoppe d after found out alcohol) Sex Assigned at Date Recorded Female 01/14/2020 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 Italia Galarza DO Maternal- Medicine documented in this encounter Plan of Treatment Upcoming Encounters Date Type Specialty Care Team Description 12/20/2021 Office Visit Wound Care Luis Camara DPM [address] [place], [place] [phone] (Wo rk) 01/21/2022 Office Visit Gastroenterology Juanis Levi [address] [place] [address] Luis Fernando Miles MD 516 [facility] [address] [place], [place] [phone] documented as of this encounter Visit Diagnoses Diagnosis Suspected anomaly, antepartum, not applicable or unspecified fetus - Primary Placenta previa, second trimester H/O delivery, currently , second trimester documented in this encounter Care Teams Director Federal Relationship Specialty Start Date End Date Clinic, [facility] PCP - General 07/14/16 12/06/[address] [place] [address] documented as of this encounter
--- OUTSIDE RECORDS SUMMARY | 2021-12-05 19:27 | XMS_ITS | Encounter Summary ---
:1980 Author Organization [place] Address [address] [facility] [place] [address] Care Team Providers Name Role Phone Clinic, [facility] Primary Care Provide r Reason for Visit Reason Comments Ultrasound TV US-H/O uterine rupture, c omplete previa and short cervix Encounter Details Date Type Department Care Team Description 10/10/2016 Office Visit [facility] Ilana Patel MD [address] [address] H/O delivery, Maternal Richard Villa MD [address] [address] currently , Medicine Center [facility] (Primary Dx) [address] [place] [address] Social History Tobacco Use Types Packs/Day Years Used Date Smoking Tobacco: Every Day Cigarettes 0.1 10 Smokeless Tobacco: Never Comments: 5 cigarettes a day Alcohol Use Standard Drinks/Week Comments Yes 0 (1 standard drink = 0.6 oz pure Stoppe d after found out alcohol) Sex Assigned at Date Recorded Female 01/14/2020 10:57 AM 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 Richard Villa MD Maternal- Medicine documented in this encounter Plan of Treatment Upcoming Encounters Date Type Specialty Care Team Description 12/20/2021 Office Visit Wound Care Luis Camara DPM 909 [place], [place] [address] (Wo rk) 01/21/2022 Office Visit Gastroenterology Juanis Levi [address] [place] [address] Luis Fernando Miles MD 516 [facility] [address] [place], [place] [address] documented as of this encounter Visit Diagnoses Diagnosis H/O delivery, currently , second trimester - Primary documented in this encounter Care Teams Community Health Advocate Relationship Specialty Start Date End Date Clinic, [facility] PCP - General 07/14/16 12/06/[address] [place] [address] documented as of this encounter
--- OUTSIDE RECORDS SUMMARY | 2021-12-05 19:27 | XMS_ITS | Encounter Summary ---
:1980 Author Organization [place] Address Critical access hospital0 [place] [address] Care Team Providers Name Role Phone Clinic, [facility] Primary Care Provide r Reason for Visit Reason Comments Rule Out Labor Encounter Details Date Type Department Care Team Description 12/01/2016 Hospital Encounter [facility], [facility] Birthplace MD Julian [address] [facility] [employer] [address] [facility] [address] [place], [place] [phone] (Wo rk) Social History Tobacco Use Types Packs/Day Years Used Date Smoking Tobacco: Every Day Cigarettes 0.1 10 Smokeless Tobacco: Never Comments: 5 cigarettes a day Alcohol Use Standard Drinks/Week Comments Yes 0 (1 standard drink = 0.6 oz pure Stoppe d after found out alcohol) Sex Assigned at Date Recorded Female 01/14/2020 10:57 AM REGULATORY LEADER documented as of this encounter Last [...] snacks. Activity: Call your doctor or nurse subassembler if your baby is moving less than [...] 5 times Uncomplicated opioid daily dependence (H) diphenhydrAMINE (BENADRYL Take 1 tablet [...] episode, moderate (H), Uncomplicated opioid dependence (H) buprenorphine HCl-naloxone Place 1 Film under 25 Film 0 0 06/13/2016 07/02/2017 HCl (SUBOXONE) 2-0.5 MG the tongue 5 times per filmIndications: daily Uncomplicated opioid dependence (H) documented as of [...] 12:48 AM CDT Data: [facility] Reason for maternal/ assessment per [...] Visit Wound Care Luis Camara DPM 909 [place], [place] [address] (Wo rk) 01/21/2022 Office Visit Gastroenterology Juanis Levi [address] [place] [address] Luis Fernando Miles MD [address] [phone] documented as of this encounter Visit Diagnoses Not on filedocumented in this encounter Care Teams Electrical Helper Relationship Specialty Start Date End Date Clinic, [facility] PCP - General 07/14/16 12/06/[address] [place], [place] [address], [place] [address] documented as of this encounter
--- OUTSIDE RECORDS SUMMARY | 2021-12-05 19:27 | XMS_ITS | Encounter Summary ---
:1980 Author Organization [place] Address [address] [facility] [place] [address] Care Team Providers Name Role Phone Clinic, [facility] Primary Care Provide r Reason for Visit Reason Onset Date Comments Erroneous encounter-disregard 10/07/2016 Encounter Details Date Type Department Care Team Description 10/07/2016 Office Visit [facility] Edgar Alfredo ERRONEOUS Clinic Ashly Gauthier MD ENCOUNTER--DISREGARD [address] [place] (Primary Dx) [address] [place] [address] Social History Tobacco Use Types Packs/Day Years Used Date Smoking Tobacco: Every Day Cigarettes 0.1 10 Smokeless Tobacco: Never Comments: 5 cigarettes a day Alcohol Use Standard Drinks/Week Comments Yes 0 (1 standard drink = 0.6 oz pure Stoppe d after found out alcohol) Sex Assigned at Date Recorded Female 01/14/2020 10:57 AM 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 Please disregard. documented in this encounter Plan of Treatment Upcoming Encounters Date Type Specialty Care Team Description 12/20/2021 Office Visit Wound Care Luis Camara, [place] [address] [place], [place] [address] (Wo rk) 01/21/2022 Office Visit Gastroenterology Juanis Levi [address] [place] [address] Luis Fernando Miles MD 516 [facility] [address] [place], [place] [address] documented as of this encounter Visit Diagnoses Diagnosis ERRONEOUS ENCOUNTER--DISREGARD - Primary documented in this encounter Care Teams Industrial Health Engineer Relationship Specialty Start Date End Date Clinic, [facility] PCP - General 07/14/16 12/06/[address] [place] [address] documented as of this encounter
--- OUTSIDE RECORDS SUMMARY | 2021-12-05 19:27 | XMS_ITS | Encounter Summary ---
:1980 Author Organization [place] Address Critical access hospital0 [facility] [place] [address] Care Team Providers Name Role Phone ChinoLuis Fernando Primary Care Provider Encounter Details Date Type Department Care Team Description 12/20/2016 Orders Only [facility] Tarsha Torres Plac enta accreta in Birthplace MD Ann Marie third trimester 24[address] [facility] (Primary [place]x) [place] [address] Social History Tobacco Use Types Packs/Day Years Used Date Smoking Tobacco: Every Day Cigarettes 0.1 10 Smokeless Tobacco: Never Comments: 5 cigarettes a day Alcohol Use Standard Drinks/Week Comments Yes 0 (1 standard drink = 0.6 oz pure Stoppe d after found out alcohol) Sex Assigned at Date Recorded Female 01/14/2020 10: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 [address] [place] [address] documented as of this encounter Visit Diagnoses Diagnosis Placenta accreta in third trimester - Pr imary Retained placenta without hemorrhage, un specified as to episode of care documented in this encounter Care Teams Brick Picker Relationship Specialty Start Date End Date Luis Fernando Magana PCP - General Family Practice 12/07/16 01/19/[address] [address] documented as of this encounter
--- OUTSIDE RECORDS SUMMARY | 2021-12-05 19:27 | XMS_ITS | Encounter Summary ---
:1980 Author Organization [place] Address [address] [facility] [place] [address] Care Team Providers Name Role Phone Luis Fernando Magana Primary Care Provider Reason for Referral - Closed Specialty Diagnoses / Procedures Referred By Contact Refer red To Contact Diagnoses Hepatitis C virus infection, unspecified chronicity Erum Manzanares MD SOCIAL SERVICE TECHNICIAN AND INFERTILI TY [address] [place] [address] Referral ID Status Reason Start Date Expiration Date Visits Requ ested Visits Authorized [id number] Closed 12/13/2016 12/13/2017 1 1 Encounter Details Date Type Department Care Team Description 12/13/2016 Orders Only [facility] Erum Manzanares patitis C virus [facility] Birthplace MD Tigist infection, [address] [facility] SOCIAL SERVICE TECHNICIAN AND unspecified [facility] [address] INFERTILITY chronicity (Primary [phone] Dx) [place] [address] [place] [phone] (Wo rk) Social History Tobacco Use Types Packs/Day Years Used Date Smoking Tobacco: Every Day Cigarettes 0.1 10 Smokeless Tobacco: Never Comments: 5 cigarettes a day Alcohol Use Standard Drinks/Week Comments Yes 0 (1 standard drink = 0.6 oz pure Stoppe d after found out alcohol) Sex Assigned at Date Recorded Female 01/14/2020 10:57 AM 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 documented as of this encounter Plan of Treatment Upcoming Encounters Date Type Specialty Care Team Description 12/20/2021 Office Visit Wound Care Luis Camara, [place] [address] [place], [place] [phone] (Wo rk) 01/21/2022 Office Visit Gastroenterology Juanis Levi [address] [place] [address] Luis Fernando Miles MD 516 [facility] [address] [place], [place] [address] Scheduled Referrals Name Type Priority Associated Diagnoses [facility] AD[facility]F Referral Routine Hepatitis C vi brittny Ordered: CONSULT ONLY infection, unspecified 12/13 chronicity documented as of this encounter Visit Diagnoses Diagnosis Hepatitis C virus infection, unspecified chronicity - Primary documented in this encounter Care Teams Egg Candler Relationship Specialty Start Date End Date Luis Fernando Magana PCP - General Family Practice 12/07/16 01/19/18 [place] [address] [place] [address] documented as of this encounter
--- OUTSIDE RECORDS SUMMARY | 2021-12-05 19:27 | XMS_ITS | Encounter Summary ---
:1980 Author Organization [place] Address [address] [facility] [place] [address] Care Team Providers Name Role Phone Luis Fernando Magana Primary Care Provider Reason for Visit Reason Onset Date Comments No Show No Show 12/23/2016 Erroneous encounter-disregard 12/23/2016 Encounter Details Date Type Department Care Team Description 12/23/2016 Office Visit [facility] Edgar Workman NO SHOW ( Primary Dx); Clinic Ashly Gauthier MD ERRONEOUS ENCOUNTER--DISREGARD [address] [place] [address] [place] [address] Social History Tobacco Use Types Packs/Day Years Used Date Smoking Tobacco: Every Day Cigarettes 0.1 10 Smokeless Tobacco: Never Comments: 5 cigarettes a day Alcohol Use Standard Drinks/Week Comments Yes 0 (1 standard drink = 0.6 oz pure Stoppe d after found out alcohol) Sex Assigned at Date Recorded Female 01/14/2020 10:57 AM POLITICAL ADVISOR documented as of this encounter Progress Notes Edgar Workman MD - 12/23/2016 12:47 PM CST This encounter was opened in error. Please disregard. TICAL ADVISOR Sabina Mckay CMA - 12/23/2016 10:42 AM CST This patient was a no show for this scheduled appointment. TICAL ADVISOR documented in this encounter Miscellaneous Notes Addendum Note - Edgar Workman MD - 12/23/2016 12:47 PM POLITICAL ADVISOR Addended by: EDGAR WORKMAN on: 12/23/2016 12:47 PM Modules accepted: SmartSet TICAL ADVISOR documented in this encounter Plan of Treatment Upcoming Encounters Date Type Specialty Care Team Description 12/20/2021 Office Visit Wound Care Luis Camara DPM 909 [place] [address] (Wo rk) 01/21/2022 Office Visit Gastroenterology Juanis Levi 2450 [place] [phone] Luis Fernando Miles MD 516 [facility] [address] [place] [address] documented as of this encounter Visit Diagnoses Diagnosis NO SHOW - Primary ERRONEOUS ENCOUNTER--DISREGARD documented in this encounter Care Teams Air Conditioning Supervisor Relationship Specialty Start Date End Date Luis Fernando Magana PCP - General Family Practice 12/07/16 01/19/[address] [address] documented as of this encounter
--- OUTSIDE RECORDS SUMMARY | 2021-12-05 19:27 | XMS_ITS | Encounter Summary ---
:1980 Author Organization [place] Address 24[address] [facility] [place] [address] Care Team Providers Name Role Phone Luis Fernando Magana Primary Care Provider Reason for Visit Auth/Cert Specialty Diagnoses / Procedures Referred By Contact Refer red To Contact form building supervisor Diagnoses Maternity*JEAN MARIE: 03/07/2017 Rupture premature rupture of membranes (PPROM) delivered, current hospitalization Ur [facility] [address] [place] [address] Phone: Referral ID Status Reason Start Date Expiration Date Visits Requ ested Visits Authorized [id number] 12/09/2016 12/09/2017 1 1 Encounter Details Date Type Department Care Team Description 12/19/2016 Hospital Encounter [facility] Asaf Manzanares Maternal MD Tigist [facility] PROGRAM PROPOSALS COORDINATOR AND [facility] [facility] [address] [place], [place] [address] [place] [address] [phone] (Wo rk) Social History Tobacco Use Types [...] Wound Care Luis Camara DPM [address] [place] [address] (Wo rk) 01/21/2022 Office Visit Gastroenterology Juanis Levi [address] [place] [address] Luis Fernando Miles MD [address] [address] documented as of this encounter [...] 8:16 AM CDT Impressions 12/25/2016 9:13 AM COMMUNITY ASSISTANT IMPRESSION 1) Intrauterine at 28 6/7 week s gestational age. 2) The BPP is reassuring. 3) Oligohydramnios is seen consistent wi th know PPROM. 4) A complete posterior placenta previa is again seen. Narrative 12/25/2016 9:13 AM COMMUNITY ASSISTANT BPP Pat. Name: STEPHANI REDDY Study Date: 8:16am Pat. NO: [id number] Referring ??: CHRIST LOZADA Site: [facility] Real Estate Marketing Coordinator: Jay Lu : 1980 Age: 36 INDICATION Premature Rupture of Membranes ( PPROM) Complete previa. [facility] ANTEPARTUM inpatient exam, Transabd ominal ultrasound [...] Pat. Name:Elizabeth REDDY Date:12/19 8:16am Pat. NO: [id number] MD:CHRIST BHAT ON [facility]Yesenia Sen RDMS :1980Age:36 INDICATION Premature Rupture of Membranes ( PPROM) Complete previa. [facility] ANTEPARTUM inpatient exam, Transabd ominal ultrasound [...] rasound with the patient. Continue surveillance with [facility] weekly BPP. Continue inpatient management of [...] previa is again seen. Erum Manzanares MD [facility] US ORDERABLES documented in this encounter Visit Diagnoses Not on filedocumented in this encounter Care Teams Ferruler Relationship Specialty Start Date End Date Luis Fernando Magana PCP - General Family Practice 12/07/16 01/19/[address] [address] documented as of this encounter
--- OUTSIDE RECORDS SUMMARY | 2021-12-05 19:28 | XMS_ITS | Encounter Summary ---
:1980 Author Organization [place] Address 2450 [facility] [place] [address] Care Team Providers Name Role Phone Clinic, [facility] Primary Care Provide r Reason for Visit Reason Onset Date Comments Consult 07/18/2016 triage Encounter Details Date Type Department Care Team Description 07/18/2016 Telephone [facility] Anabelle Thomas ult (triage) Maternal Medicine GENARO [place] [address] [facility] [place] [address] Social History Tobacco Use Types Packs/Day Years Used Date Smoking Tobacco: Every Day Cigarettes 0.1 10 Smokeless Tobacco: Never Comments: 5 cigarettes a day Alcohol Use Standard Drinks/Week Comments No 0 (1 standard drink = 0.6 oz pure alcoho l) Sex Assigned at Date Recorded Female 01/14/2020 10:57 AM ROCK 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
--- OUTSIDE RECORDS SUMMARY | 2021-12-05 19:28 | XMS_ITS | Encounter Summary ---
:1980 Author Organization [place] Address [address] [facility] [place] [address] Care Team Providers Name Role Phone Clinic, [facility] Primary Care Provide r Encounter Details Date Type Department Care Team Description 08/01/2016 Office Visit [facility] Spec, Nurse Only Superv ision of Women's Clinic Med high-risk pre gnancy, [place] first trimester [address] (Primary Dx) [place] Professional Bldg [facility] [address] [place] [address] Social History Tobacco Use Types Packs/Day Years Used Date Smoking Tobacco: Every Day Cigarettes 0.1 10 Smokeless Tobacco: Never Comments: 5 cigarettes a day Alcohol Use Standard Drinks/Week Comments Yes 0 (1 standard drink = 0.6 oz pure Stoppe d after found out alcohol) Sex Assigned at Date Recorded Female 01/14/2020 10:57 AM REGIONAL CRA documented as of this encounter Progress Notes [...] Visit Wound Care Luis Camara, [place] [address] [place], [place] [phone] (Wo rk) 01/21/2022 Office Visit Gastroenterology Juanis Levi [address] [place] [address] Luis Fernando Miles MD 516 [facility] 2A [place], [place] [address] documented as of this encounter Visit Diagnoses Diagnosis Supervision of high-risk , firs t trimester - Primary documented in this encounter Care Teams Curriculum And Assessment Director Relationship Specialty Start Date End Date Clinic, [facility] PCP - General 07/14/16 12/06/[address] [place], [place] [address] [address] documented as of this encounter
--- OUTSIDE RECORDS SUMMARY | 2021-12-05 19:28 | XMS_ITS | Encounter Summary ---
:1980 Author Organization [place] Address 2450 [facility] [place] [address] Care Team Providers Name Role Phone Clinic, [facility] Primary Care Provide r Luis Fernando Magana Primary Care Provider Reason for Visit Reason Onset Date Comments Vaginal Bleeding 07/18/2016 8 weeks wit h weeks, very high ristk pregancy, she is bleeding heav mateo and passed 6-7 clots so far Encounter Details Date Type Department Care Team Description 07/18/2016 [facility] Mark Turner, Vaginal Bleeding (8 [facility] UNDERPRESSER HAND CNM weeks with [facility] weeks, very high ristk [address] SPECIALISTS pregancy, she is [place] Professional [address] bleeding heavily and Bldg [facility] [address] [place], [place] passed 6-7 clots so [address]rd Flr,[address] [address] far) [place], [place] [phone] [address] (Work) [phone] Social History Tobacco Use Types Packs/Day Years Used Date Smoking Tobacco: Every Day Cigarettes 0.1 10 Smokeless Tobacco: Never Comments: 5 cigarettes a day Alcohol Use Standard Drinks/Week Comments No 0 (1 standard drink = 0.6 oz pure alcoho l) Sex Assigned at Date Recorded Female 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 documented as of this encounter Plan of Treatment Upcoming Encounters Date Type Specialty Care Team Description 12/20/2021 Office Visit Wound Care Luis Camara, [place] [address] [place] [address] (Wo rk) 01/21/2022 Office Visit Gastroenterology Juanis Levi [address] [place] [address] Luis Fernando Miles MD 516 [facility] [address] [place], [place] [address] documented as of this encounter Visit Diagnoses Not on filedocumented in this encounter Care Teams Wire Preparation Machine Tender Relationship Specialty Start Date End Date Clinic, [facility] PCP - General 07/14/16 12/06/[address] [place] [address] Luis Fernando Magana PCP - General Family Practice 12/07/16 01/19/18 [facility] [address] [place], [place] [phone] documented as of this encounter
--- OUTSIDE RECORDS SUMMARY | 2021-12-05 19:28 | XMS_ITS | Encounter Summary ---
:1980 Author Organization [place] Address [address] [facility] [place] [address] Care Team Providers Name Role Phone Clinic, [facility] Primary Care Provide r Reason for Visit Reason Comments Addiction Problem Encounter Details Date Type Department Care Team Description 08/12/2016 Office Visit [facility] Edgar Alfredo Uncomplic ated opioid dependence (H); Clinic Ashly Gauthier MD Major depressive disorder, recurrent epi sode, moderate (H) [address] [place] [address] [place] [phone] Social History Tobacco Use Types Packs/Day Years Used Date Smoking Tobacco: Every Day Cigarettes 0.1 10 Smokeless Tobacco: Never Comments: 5 cigarettes a day Alcohol Use Standard Drinks/Week Comments Yes 0 (1 standard drink = 0.6 oz pure Stoppe d after found out alcohol) Sex Assigned at Date Recorded Female 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 [place] Board of Pharmacy Data Base Reviewed: YES; [...] BREAST SURGERY ABcess drained ??? SECTION ??? INCLINED RAILWAY OPERATOR SURGERY ??? ORTHOPEDIC SURGERY ??? THORACIC [...] Take 1 tablet by mouth daily ??? Wxtgmxkk-Cvc-Rj-FA ( VITAMINS) 0.8 MG TABS Take 1 [...] Panel 13 Result Value Ref Range Cannabinoids (70-qaa-0-rmyiinp-6-GFB) NDET ng/mL Not Detected Cutoff for a [...] be used for medical purposes only. Order [id number] for confirmation or individual confirmation tests to [employer]. 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 USE OF HIGH RISK MEDICATION High [...] visit in 2 MONTHS Edgar Alfredo MD [facility] documented in this encounter Plan of Treatment Upcoming Encounters Date Type Specialty Care Team Description 12/20/2021 Office Visit Wound Care Luis Camara, [place] [address] [place] [address] (Wo rk) 01/21/2022 Office Visit Gastroenterology Juanis Levi [address] [place] [address] Luis Fernando Miles MD 516 [facility] [address] [place], [place] [address] documented as of this encounter Procedures Procedure [...] At Signature Cannabinoids Not Detected NDET LAB (31-bso-8-carboxy- Cutoff for a negative cannabinoid is 50 [...] be used for medical purposes only. Order [id number] for confirmation or individual confirmation tests to [employer]. (A) Specimen Anatomical Collection Method Collection Time Receive d Time (Source) Location / / Volume Laterality Urine specimen 08/12/2016 2:28 PM 017 2:29 (specimen) CDT PM CDT Edgar Alfredo MD LAB - URINE ORDERABLES Performing Organization Address City/State/[place] [address] [facility] [address] [place] [address] [address] [facility] documented in this encounter Visit Diagnoses Diagnosis Uncomplicated opioid dependence (H) Opioid type dependence, unspecified Major depressive disorder, recurrent epi sode, moderate (H) Major depressive disorder, recurrent epi sode, moderate documented in this encounter Care Teams Patient Financial Representative Relationship Specialty Start Date End Date Clinic, [facility] PCP - General 07/14/16 12/06/16 [facility] [email or web address] [address] documented as of this encounter
--- OUTSIDE RECORDS SUMMARY | 2021-12-05 19:28 | XMS_ITS | Encounter Summary ---
:1980 Author Organization [place] Address Formerly [facility] [place] [address] Care Team Providers Name Role Phone Clinic, [facility] Primary Care Provide r Reason for Visit Reason Comments Vaginal Bleeding Encounter Details Date Type Department Care Team Description 07/28/2016 Emergency [facility] Christopher Ji ed miscarriage in early ; [facility] Emergency Dep t MD Bryon Spontaneous miscarriage [address] [facility] EMERGENCY PHYSICIANS [facility] [address] 54[address] [facility] [phone] [place], [place] [address] (Wo rk) Social History Tobacco Use Types Packs/Day Years Used Date Smoking Tobacco: Every Day Cigarettes 0.1 10 Smokeless Tobacco: Never Comments: 5 cigarettes a day Alcohol Use Standard Drinks/Week Comments No 0 (1 standard drink = 0.6 oz pure alcoho l) Sex Assigned at Date Recorded Female 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 ??? You should [...] contain Tylenol?? (acetaminophen), including Vicodin??, Tylenol #3??, [place]??, Lortab??, and Percocet??. You should not take [...] Sig Dispensed Refills Start Date End Date DiphenhydrAMINE HCl Take by mouth as 0 07/04/2018 (BENADRYL ALLERGY PO) needed folic acid (FOLVITE) 1 MG Take 1 tablet (1 100 tablet 3 06/1801/31/2018 tablet mg) by mouth daily levothyroxine (SYNTHROID, Take 1 tablet by 0 01/31/2018 LEVOTHROID) 125 MCG tablet mouth daily venlafaxine (EFFEXOR-XR) Take 2 capsules 60 capsule [...] per filmIndications: daily Uncomplicated opioid dependence (H) Ferrous Sulfate (IRON) 325 Take 1 tablet by 0 08/29/2016 (65 FE) MG tablet mouth 2 times daily loratadine (CLARITIN) 10 Take 1 tablet (10 30 tablet 1 10/1808/29/2016 MG tabletIndications: mg) by mouth daily Seasonal allergic rhinitis OMEPRAZOLE PO Take by mouth 0 11/30/19 17 daily Take 1 tablet by 30 tablet 6 12/10/2012 08/30/19 17 Oxanxddw-Nlq-Ia-FA mouth daily ( VITAMINS) 0.8 MG TABSIndications: Opiate dependence (H) WELLBUTRIN SR 150 MG 12 hr [...] po Levothyroxine (synthroid, levothroid) 125 mcg tablet goypbecb-txs-pn-fa ( vitamins) 0.8 mg tabs [discontinued] vitamins po Past Medical History: Anxiety Depressive disorder Uncomplicated opioid dependence (H) Past Surgical History: Breast surgery TICKET MANAGER surgery Orthopedic surgery Thoracic surgery Family History: [...] HGB 11.7, PLT 195 HCG Quantitative blood: 40745 (H) Rh type: B, RH(D) Pos Emergency Department Course: Nursing notes and vitals reviewed. I performed an exam of the patient as documented above. The above workup was undertaken. 1105: I performed a pelvic exam. 1233: Discussed the patient with Dr. Sanchez from [facility]. 1355: I rechecked the patient and [...] observations and the provider's statements to me. [facility] EMERGENCY DEPARTMENT Christopher Ji MD 08/03/162006 documented in this encounter Plan of Treatment Upcoming Encounters Date Type Specialty Care Team Description 12/20/2021 Office Visit Wound Care Luis Camara DPM [address] [place] [address] (Wo rk) 01/21/2022 Office Visit Gastroenterology Juanis Levi [address] [place] [address] Luis Fernando Miles MD 516 [facility] 2[address] [place], [place] [phone] documented as of this encounter Procedures Procedure [...] Patholo gist Method Time Signature ABO B [facility] RH(D) Pos [facility] Blood Canceled, [place] Screen Test [facility] Blood Bank Not suitable for Rh Immune Globulin [place] Comment Patient is Rh positive [facility] Amount of RHIG Not suitable [place] Required for [facility] Globulin Specimen Anatomical Collection Method Collection Time Receive d Time (Source) Location / / Volume Laterality 07/28/2016 10:25 07/28/2016 AM CDT 10:39 AM CDT Christopher Ji MD LAB - BLOOD BANK TEST ORDER Performing Organization Address City/State/ZIP Code Phon e Number [facility] [address] [place], [place] [address] HOSPITAL [facility] [address] [place], [place] [address], [facility] [phone] Rh type (07/28/2016 10:25 AM CDT) Analysis Performed At Patho logist Time Signature ABO B [facility] RH(D) Pos [facility] Specimen 07/31/2016 [facility] Specimen Anatomical Collection Method Collection Time Receive d Time (Source) Location / / Volume Laterality Blood specimen 07/28/2016 10:25 7 (specimen) AM CDT 10:31 AM CDT Christopher Ji MD LAB - BLOOD BANK TEST ORDER Performing Organization Address City/[facility]/ZIP Code Phon e Number M [facility] [address] [place], [place] [address] [facility] [address] [place], [place] [address], [facility] [phone] (ABNORMAL) HCG QUANTitative (07/28/2016 10:25 AM CDT) [facility] Method Time Signature HCG Quantitative 77,252 0 - 5 [place] Serum (H) IU/L [facility] Comment: Specimen run with a dilution Specimen Anatomical Collection Method Collection Time Receive d Time (Source) Location / / Volume Laterality Blood specimen 07/28/2016 10:25 7 (specimen) AM CDT 10:30 AM CDT Christopher Ji MD LAB - BLOOD ORDERABLES Performing Organization Address City/[facility]/ZIP [facility] Phon e Number [facility] [address] [place], [place] [address] [place] [address] [place], [place] [address], [facility] [phone] (ABNORMAL) CBC with platelets differential (07/28/2016 10:25 AM CDT) [facility] Method Time Signature WBC 7.1 4.0 - [place] 11.0 [facility] 10e9/L [facility] RBC Count 3.77 (L) 3.8 - 5.2 [place] 10e12/L [facility] Hemoglobin 11.7 11.7 - [place] 15.7 g/dL [facility] Hematocrit 35.6 35.0 - [place] 47.0 % [facility] MCV 94 78 - 100 [facility] MCH 31.0 26.5 - [place] 33.0 pg [facility] MCHC 32.9 31.5 - [place] 36.5 g/dL [facility] RDW 12.9 10.0 - [place] 15.0 % [facility] Platelet Count 195 150 - 450 [place] [address] [place] [address] Diff Method Automated [facility] % Neutrophils 60.2 % [facility] % Lymphocytes 31.4 % [facility] % Monocytes 4.7 % [facility] % Eosinophils 3.1 % [facility] % Basophils 0.3 % [facility] % Immature 0.3 % [place] Granulocytes [facility] Nucleated RBCs 0 0 /100 [facility] Absolute 4.3 1.6 - 8.3 [place] Neutrophil 10e9/L [facility] Absolute 2.2 0.8 - 5.3 [place] Lymphocytes 10e9[facility] Absolute 0.3 0.0 - 1.3 [place] Monocytes 10e9[facility] Absolute 0.2 0.0 - 0.7 [place] Eosinophils e9[facility] Absolute 0.0 0.0 - 0.2 [place] Basophils 10e9/[facility] Abs Immature 0.0 0 - 0.4 [place] Granulocytes [address] [place] [address] Absolute 0.0 [place] Nucleated RBC [facility] Specimen Anatomical Collection Method Collection Time Receive d Time (Source) Location / / Volume Laterality Blood specimen 07/28/2016 10:25 7 (specimen) AM CDT 10:30 AM CDT Christopher Ji MD LAB - BLOOD ORDERABLES Performing Organization Address City/State/ZIP Code Phon e Number [place] [address] [address] [place] [address] [facility] [address] [phone] Rho (D) immune globulin (RhoGam) Lab Study (07/28/2016 10:24 AM CDT) [facility] Method Time Signature Rhogam Order Order received [place] See Rhogam Study/Suitability [facility] Specimen Anatomical Collection Method Collection Time Receive d Time (Source) Location / / Volume Laterality 07/28/2016 10:24 07/28/2016 AM CDT 10:25 AM CDT Christopher Ji MD LAB - BLOOD BANK PRODUCT ORD ER Performing Organization Address City/State/ZIP Code Phon e Number [facility] [address] [place], [place] [address] [facility] [address] [place], [place] [address] [phone] documented in this encounter Visit Diagnoses Diagnosis [...] order. documented in this encounter Care Teams Saturator Operator Relationship Specialty Start Date End Date Clinic, [facility] PCP - General 07/14/16 12/06/[address] [place] [address] documented as of this encounter
--- OUTSIDE RECORDS SUMMARY | 2021-12-05 19:28 | XMS_ITS | Encounter Summary ---
:1980 Author Organization [place] Address 2450 [facility] [place] [address] Care Team Providers Name Role Phone Clinic, [facility] Primary Care Provide r Reason for Visit Reason Onset Date Comments Prior Auth - Medication 08/12/2016 Subutex Encounter Details Date Type Department Care Team Description 08/12/2016 Telephone [facility] Edgar Alfredo Pri or Auth - Medication Clinic Ashly VÁSQUEZ (Subutex) [address] [place] [address] [place] [address] (Wo rk) Social History Tobacco Use Types Packs/Day Years Used Date Smoking Tobacco: Every Day Cigarettes 0.1 10 Smokeless Tobacco: Never Comments: 5 cigarettes a day Alcohol Use Standard Drinks/Week Comments Yes 0 (1 standard drink = 0.6 oz pure Stoppe d after found out alcohol) Sex Assigned at Date Recorded Female 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 Thank You, Nicole Borjas, [facility] documented in this encounter Plan of Treatment Upcoming Encounters Date Type Specialty Care Team Description 12/20/2021 Office Visit Wound Care Luis Camara, [place] [address] [place] [address] (Wo rk) 01/21/2022 Office Visit Gastroenterology Juanis Levi [address] [place] [address] Luis Fernando Miles MD 516 [facility] 2A [place] [address] documented as of this encounter Visit Diagnoses Not on filedocumented in this encounter Care Teams Forming Machine Upkeep Mechanic Helper Relationship Specialty Start Date End Date [facility], [facility] PCP - General 07/14/16 12/06/[address] [place] [address] documented as of this encounter
--- OUTSIDE RECORDS SUMMARY | 2021-12-05 19:28 | XMS_ITS | Encounter Summary ---
:1980 Author Organization [place] Address [address] [facility] [place] [address] Care Team Providers Name Role Phone Clinic, [facility] Primary Care Provide r Reason for Visit Reason Onset Date Comments Abnormal Uterine Bleeding 08/29/2016 13 we eks today. Encounter Details Date Type Department Care Team Description 08/29/2016 Telephone [facility] Violeta Fagan Abnormal Uterine [facility] FARZANA Bailey CNCamryn Bleeding ( [address] weeks today.) [address] [place], [place] [address] [address] [place], [place] [phone] [address] (Work) [phone] Social History Tobacco Use Types Packs/Day Years Used Date Smoking Tobacco: Every Day Cigarettes 0.1 10 Smokeless Tobacco: Never Comments: 5 cigarettes a day Alcohol Use Standard Drinks/Week Comments Yes 0 (1 standard drink = 0.6 oz pure Stoppe d after found out alcohol) Sex Assigned at Date Recorded Female 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 [facility]. Tremayne Gilmore RN Telephone Encounter - Tremayne Price RN - 08/29/2016 1:41 PM CDT Pt called back to get scheduled for an US. Pt states she is bleeding very heavily, she states she is wear adult depends and had to change them 5 minutes apart. Pt advised to come into the [facility] ED with that heavy of bleeding. Pt is other line with [facility] trying to arrange a ride to the Hospital. She will call me back if not able to get ride. Tremayne Gilmore RN Telephone Encounter - Thais Morris LPN - 08/29/2016 1:35 PM CDT Phone call from Rn at [facility] patient would like to be evaluated there [...] Phone Fax E-Mail Primary [facility] [address] [place], [place] [address]E [facility] [address] ?? with Twins but at 8 weeks documented in this encounter Plan of Treatment Upcoming Encounters Date Type Specialty Care Team Description 12/20/2021 Office Visit Wound Care Luis Camara, [place] [address] [place], [place] [phone] (Wo rk) 01/21/2022 Office Visit Gastroenterology Juanis Levi 2450 [place] [phone] Luis Fernando Miles MD 516 [facility] [address] [place], [place] [address] documented as of this encounter Visit Diagnoses Diagnosis Vaginal bleeding in patient at less than 20 weeks gestation - Primary documented in this encounter Care Teams City Collector Relationship Specialty Start Date End Date Clinic, [facility] PCP - General 07/14/16 12/06/[address] [place] [address] documented as of this encounter
--- OUTSIDE RECORDS SUMMARY | 2021-12-05 19:28 | XMS_ITS | Encounter Summary ---
:1980 Author Organization [place] Address [address] [facility] [place] [address] Care Team Providers Name Role Phone Clinic, [facility] Primary Care Provide r Encounter Details Date Type Department Care Team Description 09/17/2016 Orders Only [facility] Anabelle Thomas High -risk , Maternal GENARO Norris [facility] (Primary Dx) [place] [address] [place], [place] [address] Social History Tobacco Use Types Packs/Day Years Used Date Smoking Tobacco: Every Day Cigarettes 0.1 10 Smokeless Tobacco: Never Comments: 5 cigarettes a day Alcohol Use Standard Drinks/Week Comments Yes 0 (1 standard drink = 0.6 oz pure Stoppe d after found out alcohol) Sex Assigned at Date Recorded Female 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 documented as of this encounter Plan of Treatment Upcoming Encounters Date Type Specialty Care Team Description 12/20/2021 Office Visit Wound Care Luis Camara DPM 909 [place] [address] (Wo rk) 01/21/2022 Office Visit Gastroenterology Juanis Levi [address] [place] [address] Luis Fernando Miles MD [address] [address] documented as of this encounter Visit Diagnoses Diagnosis High-risk , first trimester - P rimary documented in this encounter Care Teams Lobsterman Relationship Specialty Start Date End Date Clinic, [facility] PCP - General 07/14/16 12/06/[address] [place] [address] [phone] documented as of this encounter
--- OUTSIDE RECORDS SUMMARY | 2021-12-05 19:28 | XMS_ITS | Encounter Summary ---
:1980 Author Organization [place] Address [address] [facility] [place] [address] Care Team Providers Name Role Phone Clinic, [facility] Primary Care Provide r Reason for Visit Reason Onset Date Comments Clinic Care Coordination - Follow-up 08/30/2016 NOB [place] Encounter Details Date Type Department Care Team Description 08/30/2016 Telephone [facility] Women's Nurse, p [facility] Clinic Care Coordination Clinic [place] - Follow-up (NOB [place]) [address] [place] Professional Bldg [facility] [address],[facility] [address] [place] [address] Social History Tobacco Use Types Packs/Day Years Used Date Smoking Tobacco: Every Day Cigarettes 0.1 10 Smokeless Tobacco: Never Comments: 5 cigarettes a day Alcohol Use Standard Drinks/Week Comments Yes 0 (1 standard drink = 0.6 oz pure Stoppe d after found out alcohol) Sex Assigned at Date Recorded Female 01/14/2020 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
--- OUTSIDE RECORDS SUMMARY | 2021-12-05 19:28 | XMS_ITS | Encounter Summary ---
:1980 Author Organization [place] Address [address] [facility] [place] [address] Care Team Providers Name Role Phone Clinic, [facility] Primary Care Provide r Reason for Visit Reason Comments Genetic Counseling GC: AMA, +Hep B, smoker, Hx heart defect, subutex use Ultrasound 1st tri screen: AMA, +Hep B, smoker, Hx heart defect, subutex use Consult MFM consult: AMA, +Hep B, sm oker, Hx heart defect, subutex use Encounter Details Date Type Department Care Team Description 08/16/2016 PRE VISIT [facility] Sintia Rasheed Genetic Epifanio story (GC: Maternal Medicine GENARO Ghotra AMA, +Hep B, smoker, Hx [facility] heart defect, [address] subutex use); [place], [place] [address] Ultrasound (1st tri [phone] screen: AMA, +H ep B, smoker, Hx [...] at Date Recorded Female 01/14/2020 10:57 AM INSIDE FINISHER documented as of this encounter Plan of Treatment Upcoming Encounters Date Type Specialty Care Team Description 12/20/2021 Office Visit Wound Care Luis Camara DPM 909 [place], [place] [phone] (Wo rk) 01/21/2022 Office Visit Gastroenterology Juanis Levi [address] [place] [address] Luis Fernando Miles MD 516 [facility] 2A [place], [place] [address] documented as of this encounter Visit Diagnoses Not on filedocumented in this encounter Care Teams Billet Header Relationship Specialty Start Date End Date Clinic, [facility] PCP - General 07/14/16 12/06/[address] [place] [address] [phone] documented as of this encounter
--- OUTSIDE RECORDS SUMMARY | 2021-12-05 19:28 | XMS_ITS | Encounter Summary ---
:1980 Author Organization [place] Address [address] [place] [address] Care Team Providers Name Role Phone Clinic, [facility] Primary Care Provide r Reason for Visit Reason Onset Date Comments Prior Auth - Medication 08/15/2016 Subutex 2 mg Encounter Details Date Type Department Care Team Description 08/15/[address] 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 Staff called [facility] at [phone]. Staff informed pharmacist regarding the above information and stated he will be working [facility] and he will run the JENIFFER montesinos. Lupe Lantigua MA Telephone Encounter - Mark Roldan - 08/16/2016 12:49 PM CDT Prior Authorization: APPROVED Approved as of: 08/12/16 thru 08/16/16 Mark Roldan August 16, 2016 at 12:51 PM Telephone Encounter - Sarah Calvert MA - 08/16/2016 8:54 AM CDT Prior Authorization has been submitted via [facility] as urgent request beatty #[id number] Staff will call plan later today at [phone] to follow up Sarah Calvert MA Telephone Encounter - Dora Merchant - 08/16/2016 7:52 AM CDT Covermeds Beatty: [id number] Dora Merchant Set Staff Fitter Telephone Encounter - Mark Roldan - 08/15/2016 12:54 PM CDT Prior Authorization needed on: [place] Medication: Subutex Dose: 2 mg Insurance Name: [place] Insurance Phone: Not listed Insurance Diesel Service Apprentice placed form in provider's folder. Mark Roldan August 15, 2016 at 12:55 PM documented in this encounter Plan of Treatment Upcoming Encounters Date Type Specialty Care Team Description 12/20/2021 Office Visit Wound Care Luis Camara [place] [address] [place] [address] (Wo rk) 01/21/2022 Office Visit Gastroenterology Juanis Levi [address] [place] [phone] Luis Fernando Miles MD 516 [facility] [address] [place] [address] documented as of this encounter Visit Diagnoses Not on filedocumented in this encounter Care Teams Auto Tech Relationship Specialty Start Date End Date Clinic, [facility] PCP - General 07/14/16 12/06/[address] [place] [address] documented as of this encounter
--- OUTSIDE RECORDS SUMMARY | 2021-12-05 19:28 | XMS_ITS | Encounter Summary ---
:1980 Author Organization [place] Address [address] [facility] [place] [address] Care Team Providers Name Role Phone Clinic, [facility] Primary Care Provide r Reason for Visit Reason Comments Ultrasound 2/3 tri u/s- hx uterine rupt ure, PTD Encounter Details Date Type Department Care Team Description 09/10/2016 Office Visit [facility] Ilana Patel MD [address] [place] [address] [place] [address] H/O delivery, Maternal Lex Woods MD [address] [facility] [address] [place] [address] currently , Medicine Center [facility] (Primary Dx) [address] [place], [place] [address] Social History Tobacco Use Types Packs/Day Years Used Date Smoking Tobacco: Every Day Cigarettes 0.1 10 Smokeless Tobacco: Never Comments: 5 cigarettes a day Alcohol Use Standard Drinks/Week Comments Yes 0 (1 standard drink = 0.6 oz pure Stoppe d after found out alcohol) Sex Assigned at Date Recorded Female 01/14/2020 10:57 AM EPIC KALEIDOSCOPE ANALYST documented as of this encounter Progress Notes Lex Woods MD - 09/10/2016 12:15 PM CDT Please see Imaging tab under Chart Review for details of today's ultrasound. Lex Woods M.D. Specialist in Maternal- Medicine documented in this encounter Plan of Treatment Upcoming Encounters Date Type Specialty Care Team Description 12/20/2021 Office Visit Wound Care Luis aCmara, CALVIN [address] [place], [place] [address] (Wo rk) 01/21/2022 Office Visit Gastroenterology Juanis Levi [address] [place] [address] Luis Fernando Miles MD 516 [facility] [address] [place], [place] [address] documented as of this encounter Visit Diagnoses Diagnosis H/O delivery, currently , second trimester - Primary documented in this encounter Care Teams Manager Contract Relationship Specialty Start Date End Date Clinic, [facility] PCP - General 07/14/16 12/06/[address] [place] [address] documented as of this encounter
--- OUTSIDE RECORDS SUMMARY | 2021-12-05 19:28 | XMS_ITS | Encounter Summary ---
:1980 Author Organization [place] Address [address] [facility] [place] [address] Care Team Providers Name Role Phone Clinic, [...] trimester Ur Maternal Med [address] [place], [place] [address] Referral ID Status Reason Start Date Expiration Date Visits Requ ested Visits Authorized [id number] Closed 08/22/2016 08/22/2017 1 1 Encounter Details Date Type Department Care Team Description 10/01/2016 Office Visit [facility] Amanda Drug depen dence affecting in second trimester (Primary Dx); Maternal MD GÉNESIS Hardin (advanced maternal age) multigravida 35+, second trimester; Medicine Center [address] History of loss in prior , currently in second trimester [facility] [address] [place], [place] [address] [phone] Social History Tobacco Use Types Packs/Day Years Used Date Smoking Tobacco: Every Day Cigarettes 0.1 10 Smokeless Tobacco: Never Comments: 5 cigarettes a day Alcohol Use Standard Drinks/Week Comments Yes 0 (1 standard drink = 0.6 oz pure Stoppe d after found out alcohol) Sex Assigned at Date Recorded Female 01/14/2020 10:57 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 Maternal- Medicine Consultation Stephani King Age: [age] year old EDC: Estimated Date of Delivery: Mar 07, 2017 Gestational age: 17w4d Date of : 1980 REFERRAL: Dear Miss Nidia Herron, Thank you for your maternal Medicine consult regarding Miss King history of Subutex use, AMA and history of uterine rupture. During the consultation, Stephani let us know that she has transferred her care [facility] due to her complex history. HPI: [...] BREAST SURGERY ABcess drained ??? SECTION ??? RN TRAINING SURGERY ??? ORTHOPEDIC SURGERY ??? THORACIC SURGERY [...] I spent a total of 30 minutes [id number]-hp-[id number] with Stephani King during today's office visit. Over 50% of this time was spent counseling the patient and/or coordinating care regarding complicated by prior medical and OB history as noted above . See note for details. Lashawn Patel Anabelle Thomas, GENARO - 10/01/2016 11:00 AM CDT [facility] and [facility] her [...] for a 2/3 us, TV usand a [facility] consult. See epic for today's us findings [...] Visit Wound Care Luis Camara DPM 9[address] [place], [place] [phone] (Wo rk) 01/21/2022 Office Visit Gastroenterology Juanis Levi 24[address] [place] [address] Luis Fernando Miles MD [address] [address] documented as of this encounter Results [facility] US Comprehensive Single (10/31/2016 2:27 PM [...] FRANSISCO KINGDI Study Date: 1:32pm Pat. NO: [id number] Referring ??: LUDY RODRIGUEZ Site: [facility] Development Coordinator: Geovanna Hassan RDMS : 1980 Age: 36 [...] 1 lb 0 ?oz Calculated by ?Hadlock (MXN-YT-CD-FL) Head / Face / Neck Biometry: Pot Annealer ?3.6 ?mm ? Nasal bone ?6.5 ?mm [...] be vi sualized: Heart / Thorax ?RVOT. 3-rttddw-bsymdmj view. Gender: male. MATERNAL STRUCTURES Cervix ?Visualized, [...] Pat. Name:Elizabeth KING Date:10/31 1:32pm Pat. NO: [id number] MD:JOSE ALFREDO RODRIGUEZ [facility]Geovanna Hassan RDMS :1980Age:36 INDICATION History of delivery, [...] 1 lb 0 oz Calculated by Flora (BEZ-FC-ND-FL) Head / Face / Neck Biometry: Pot Annealer 3.6 mm Nasal bone 6.5 mm Amniotic [...] be vi sualized: Heart / Thorax RVOT. 0-fjuwwp-wivzkhp vi ew. Gender: male. MATERNAL STRUCTURES Cervix [...] 6) Marginal placenta previa. Lashawn Patel MD [facility] US ORDERABLES documented in this encounter Visit Diagnoses Diagnosis Drug dependence affecting in s econd trimester - Primary AMA (advanced maternal age) multigravida 35+, second trimester History of loss in prior pregn jannie, currently in second trimester Drug dependence affecting in s econd trimester documented in this encounter Care Teams Bagman/Woman Relationship Specialty Start Date End Date Clinic, [facility] PCP - General 07/14/16 12/06/[address] [place] [address] documented as of this encounter
--- OUTSIDE RECORDS SUMMARY | 2021-12-05 19:28 | XMS_ITS | Encounter Summary ---
:1980 Author Organization [place] Address [address] [facility] [place] [address] Care Team Providers Name Role Phone Clinic, [facility] Primary Care Provide r Reason for Visit Reason Onset Date Comments No Show 09/12/2016 x3 for MFM appt Encounter Details Date Type Department Care Team Description 09/12/[address] [facility] Maricruz Pina No Kristen w (x3 for MFM Maternal Medicine appt ) [facility] [address] [facility] [place] [address] Social History Tobacco Use Types Packs/Day Years Used Date Smoking Tobacco: Every Day Cigarettes 0.1 10 Smokeless Tobacco: Never Comments: 5 cigarettes a day Alcohol Use Standard Drinks/Week Comments Yes 0 (1 standard drink = 0.6 oz pure Stoppe d after found out alcohol) Sex Assigned at Date Recorded Female 01/14/2020 10:57 AM SURFACE BOSS documented as of this encounter Miscellaneous Notes Telephone Encounter - Maricruz Pina - 09/12/2016 3:46 PM CDT MFM [facility] [place], [place]. Patient has been scheduled threetimes for appointments with our clinic and has no showed for all three. Removing orders. Referring clinic notified that a new referral will need to placed. Television Repairer Maricruz Pina documented in this encounter Plan of Treatment Upcoming Encounters Date Type Specialty Care Team Description 12/20/2021 Office Visit Wound Care Luis Camara, CALVIN [address] [place], [place] [address] (Wo rk) 01/21/2022 Office Visit Gastroenterology Juanis Levi [address] [place] [phone] Luis Fernando Miles MD 516 [facility] 2[address] [place] [address] documented as of this encounter Visit Diagnoses Not on filedocumented in this encounter Care Teams Electrician Supervisor Substation Relationship Specialty Start Date End Date Clinic, [facility] PCP - General 07/14/16 12/06/[address] [place] [address] documented as of this encounter
--- OUTSIDE RECORDS SUMMARY | 2021-12-05 19:28 | XMS_ITS | Encounter Summary ---
:1980 Author Organization [place] Address [address] [place] [address] Care Team Providers Name Role Phone [facility] Primary Care Provide r Luis Fernando Magana Primary Care Provider [facility] Primary Care Provide r Tatyana Haas SEARCH PLANNER TOBACCO CHECKOUT CLERK Unavailable [phone] Stephani Pina SEARCH PLANNER TOBACCO CHECKOUT CLERK Unavailable [phone] Tatyana Haas SEARCH PLANNER TOBACCO CHECKOUT CLERK Unavailable [phone] Stephani Pina SEARCH PLANNER TOBACCO CHECKOUT CLERK Unavailable [phone] Juanis Levi Primary Care Provider Elsa Yeh RN Unavailable Unavailable Rogelio Treadwell MD Unavailable [phone] Luis Camara DPM Unavailable [phone] Camryn Christina MD Unavailable Sintia Lange PA-C Unavailable Luis Fernando Miles MD Unavailable [phone] Reason for Visit Reason Onset Date Comments Appointment 08/06/2016 Encounter Details Date Type Department Care Team Description 08/06/2016 Telephone [facility] Alexia Hawkins Appointment [place] [address] [place] Profession al Bldg [facility] [address],Ronnie [address] [place] [phone] Social History Tobacco Use Types Packs/Day Years Used Date Smoking Tobacco: Every Day Cigarettes 0.1 10 Smokeless Tobacco: Never Comments: 5 cigarettes a day Alcohol Use Standard Drinks/Week Comments Yes 0 (1 standard drink = 0.6 oz pure Stoppe d after found out alcohol) Sex Assigned at Date Recorded Female 01/14/2020 10:57 AM PEDIATRIC RN documented as of this encounter Miscellaneous Notes Telephone Encounter - Alexia Hawkins - 08/06/2016 2:38 PM CDT Calling to schedule pt with Nora Steele to dicuss medication. documented in this encounter Plan of Treatment Upcoming Encounters Date Type Specialty Care Team Description 12/20/2021 Office Visit Wound Care Luis Camara, CALVIN [address] [place] [address] (Wo rk) 01/21/2022 Office Visit Gastroenterology Juanis Levi 2450 [place] [phone] Luis Fernando Miles MD 516 [facility] 2A [place] [address] documented as of this encounter Visit Diagnoses Not on filedocumented in this encounter Additional Health Concerns Infection Onset Date Last Indicated Resolved Time MRSAComment: Added from external infection. 11/07/201406/18 documented as of this encounter Care Teams Senior Recruitment Consultant Relationship Specialty Start Date End Date [facility] - General 07/14/[address] [address] Luis Fernando Magana PCP - General Family Practice 12/07/16 01/19/[address] [phone] [facility], [facility] PCP - General 01/20/[address] [address] Juanis Levi PCP - General Addiction Medicine 06/29/[address] [place] [phone] Tatyana Haas, Assigned PCP 08/02/18 01/29/20 SEARCH PLANNER TOBACCO CHECKOUT CLERK [facility] [address] [facility] [address] [place] [address] Stephani Pina, Assigned PCP 01/30/20 12/30/20 SEARCH PLANNER TOBACCO CHECKOUT CLERK [address] [place], [place] [address] Tatyana Haas, Assigned PCP 12/31/20 02/24/21 SEARCH PLANNER TOBACCO CHECKOUT CLERK [facility] [address] [facility] [address] [place] [address] Stephani Pina, Assigned PCP 02/25/21 SEARCH PLANNER TOBACCO CHECKOUT CLERK [address] [place] [address] Elsa Yeh, Registered Nurse Infectious Diseases 07/25/21 Rogelio Wilson Assigned Musculoskeletal 08/04/21 MD August Provider [address] [place], [place] [phone] Luis Camara MD Podiatry 08/16/21 CALVIN Burnett [address] [place], [place] [address] Camryn Christina Assigned Surgical 09/01/21 09/07/21 MD Lexie Provider 420 [facility] 195 [place], [place] [phone] Sintia Lange PA-C Assigned Surgical 09/08/[address] [place] [place] [address] Landon Warren MD Gastroenterology 11/21/21 MD Luis Fernando 516 [facility] [address] [place] [address] documented as of this encounter
--- OUTSIDE RECORDS SUMMARY | 2021-12-05 19:28 | XMS_ITS | Encounter Summary ---
:1980 Author Organization [place] Address [address] [place] [address] Care Team Providers Name Role Phone Clinic, [facility] Primary Care Provide r Encounter Details Date Type Department Care Team Description 09/10/2016 Hospital Encounter [facility] Lela Patel MD [address] [id number] Supervision of Maternal Lex Woods MD [address] [place], [place] [address]E [address] [address] high-risk , Medicine Center [facility] [address] [place] [address] Social History Tobacco Use Types Packs/Day Years Used Date Smoking Tobacco: Every Day Cigarettes 0.1 10 Smokeless Tobacco: Never Comments: 5 cigarettes a day Alcohol Use Standard Drinks/Week Comments Yes 0 (1 standard drink = 0.6 oz pure Stoppe d after found out alcohol) Sex Assigned at Date Recorded Female 01/14/2020 10:57 AM DENTAL ASSISTANT documented as of this encounter [...] Visit Wound Care Luis Camara DPM [address] [place] [address] (Wo rk) 01/21/2022 Office Visit Gastroenterology Juanis Levi [address] [place] [address] Luis Fernando Miles MD [address] [facility] [address] [place] [address] documented as of this [...] STEPHANI REDDY Study Date: 12:12pm Pat. NO: [id number] Referring ??MD: RICHARD STEIN Site: [facility] Delivery Mgr: Mayela Teague RD MS : 1980 Age: [...] BIOMETRY CRL ?82.6 ?mm ?14w 1d ? [facility] ?147 ? bpm ? ANATOMY The following [...] Pat. Name:Elizabeth REDDY Date:09/10 12:12pm Pat. NO: [id number] MD:[facility]Mayela Teague RDMS :1980Age:35 INDICATION Vaginal bleeding [...] uns cheduled ultrasound with the patient. Her [facility] consultation is scheduled in 2 days at [...] long without fun neling. Lashawn Patel MD [facility] US ORDERABLES documented in this encounter Visit Diagnoses Diagnosis Supervision of high-risk , firs t trimester documented in this encounter Care Teams Firer Low Pressure Relationship Specialty Start Date End Date Clinic, [facility] PCP - General 07/14/16 12/06/[address] [place] [address] documented as of this encounter
--- OUTSIDE RECORDS SUMMARY | 2021-12-05 19:28 | XMS_ITS | Encounter Summary ---
:1980 Author Organization [place] Address [address] [place] [address] Care Team Providers Name Role Phone Clinic, [facility] Primary Care Provide r Reason for Visit - Closed Specialty Diagnoses / Procedures Referred By Contact Refer red To Contact Diagnoses Supervision of high-risk , first trimester Ur Maternal Med [address] [place], [place] [address] Referral ID Status Reason Start Date Expiration Date Visits Requ ested Visits Authorized [id number] Closed 08/22/2016 08/22/2017 1 1 Encounter Details Date Type Department Care Team Description 08/22/[address] [facility] Ilana Patel MD [address] [address] Canceled (Patient) Maternal Medicine Italia Galarza DO [address] [facility] [address] [place] [address] [facility] [address] [place], [place] [address] Social History Tobacco Use Types Packs/Day Years Used Date Smoking Tobacco: Every Day Cigarettes 0.1 10 Smokeless Tobacco: Never Comments: 5 cigarettes a day Alcohol Use Standard Drinks/Week Comments Yes 0 (1 standard drink = 0.6 oz pure Stoppe d after found out alcohol) Sex Assigned at Date Recorded Female 01/14/2020 10:57 AM PIPE PULLER documented as of this encounter Plan of Treatment Upcoming Encounters Date Type Specialty Care Team Description 12/20/2021 Office Visit Wound Care Luis Camara DPM [address] [place] [address] (Wo rk) 01/21/2022 Office Visit Gastroenterology Juanis Levi [address] [place] [phone] Luis Fernando Miles MD [address] [facility] [address] [place], [place] [id number] documented as of this encounter Visit Diagnoses Not on filedocumented in this encounter Care Teams Medical Equipment Technician Relationship Specialty Start Date End Date Clinic, [facility] PCP - General 07/14/16 12/06/[address] [place] [address] documented as of this encounter
--- OUTSIDE RECORDS SUMMARY | 2021-12-05 19:28 | XMS_ITS | Encounter Summary ---
:1980 Author Organization [place] Address [address] [place] [address] Care Team Providers Name Role Phone Clinic, [facility] Primary Care Provide r Reason for Visit Reason Onset Date Comments Clinic Care Coordination - Follow-up 09/02/2016 NOB appt Encounter Details Date Type Department Care Team Description 09/02/2016 Telephone [facility] Women's Nurse, [facility] Clinic Care Coordination Clinic [facility] - Follow-up (NOB appt) [address] [place] [facility] [address],[facility] [address] [place] [address] Social History Tobacco Use Types Packs/Day Years Used Date Smoking Tobacco: Every Day Cigarettes 0.1 10 Smokeless Tobacco: Never Comments: 5 cigarettes a day Alcohol Use Standard Drinks/Week Comments Yes 0 (1 standard drink = 0.6 oz pure Stoppe d after found out alcohol) Sex Assigned at Date Recorded Female 01/14/2020 10:57 AM INSTRUCTIONAL ASSISTANT documented as of this encounter Miscellaneous [...] Visit Wound Care Luis Camara DPM [address] [place] [address] (Wo rk) 01/21/2022 Office Visit Gastroenterology Juanis Levi [address] [place] [phone] Luis Fernando Miles MD 516 [facility] [address] [place] [address] documented as of this encounter Visit Diagnoses Not on filedocumented in this encounter Care Teams Felt Finisher Relationship Specialty Start Date End Date Clinic, [facility] PCP - General 07/14/16 12/06/[address] [place] [address] documented as of this encounter
--- OUTSIDE RECORDS SUMMARY | 2021-12-05 19:28 | XMS_ITS | Encounter Summary ---
:1980 Author Organization [place] Address [address] [place] [address] Care Team Providers Name Role Phone Clinic, [facility] Primary Care Provide r Reason for Visit - Closed Specialty Diagnoses / Procedures Referred By Contact Refer red To Contact Diagnoses Supervision of high-risk , first trimester Ur Maternal Med [address] [place], [place] [address] Referral ID Status Reason Start Date Expiration Date Visits Requ ested Visits Authorized [id number] Closed 08/22/2016 08/22/2017 1 1 Encounter Details Date Type Department Care Team Description 09/03/2016 Office Visit [facility] Ilana Patel MD [address] [address] Canceled (Patient) Maternal Petrona Barone DO [address] [facility] [address] [place] [address] Medicine [facility] [address] [place], [place] [address] Social History Tobacco Use Types Packs/Day Years Used Date Smoking Tobacco: Every Day Cigarettes 0.1 10 Smokeless Tobacco: Never Comments: 5 cigarettes a day Alcohol Use Standard Drinks/Week Comments Yes 0 (1 standard drink = 0.6 oz pure Stoppe d after found out alcohol) Sex Assigned at Date Recorded Female 01/14/2020 10:57 AM FINISHING SUPERVISOR PLASTIC SHEETS documented as of this encounter Plan of Treatment Upcoming Encounters Date Type Specialty Care Team Description 12/20/2021 Office Visit Wound Care Luis Camara DPM [address] [place] [address] (Wo rk) 01/21/2022 Office Visit Gastroenterology Juanis Levi [address] [place] [phone] Luis Fernando Miles MD [address] [facility] [address] [place], [place] [address] documented as of this encounter Visit Diagnoses Not on filedocumented in this encounter Care Teams Import And Export Clerk Relationship Specialty Start Date End Date Clinic, [facility] PCP - General 07/14/16 12/06/[address] [place] [id number] documented as of this encounter
--- OUTSIDE RECORDS SUMMARY | 2021-12-05 19:28 | XMS_ITS | Encounter Summary ---
:1980 Author Organization [place] Address [address] [place] [address] Care Team Providers Name Role Phone Clinic, [facility] Primary Care Provide r Reason for Visit Reason Onset Date Comments Prior Auth - Medication 09/09/2016 Buprenorphine HC L 2 mg Encounter Details Date Type Department Care Team Description 09/09/2016 Telephone [facility] Edgar Alfredo Pri or Auth - Medication Clinic Ashly VÁSQUEZ (Buprenorphine HCL [address] [place] ) [address] [place] [phone] (Wo rk) Social History Tobacco Use Types Packs/Day Years Used Date Smoking Tobacco: Every Day Cigarettes 0.1 10 Smokeless Tobacco: Never Comments: 5 cigarettes a day Alcohol Use Standard Drinks/Week Comments Yes 0 (1 standard drink = 0.6 oz pure Stoppe d after found out alcohol) Sex Assigned at Date Recorded Female 01/14/2020 10:57 AM PEDIATRIC NURSE PRACTITIONER documented as of this encounter Miscellaneous Notes Telephone Encounter - Lupe Lantigua CMA - 09/13/2016 9:09 AM CDT Staff called [facility] [place] Department at [phone] PA was APPROVED 08/10/2016 through 09/09/2017. [place] Case# [id number]. Lupe Lantigua MA Telephone Encounter - Lupe Lantigua CMA - 09/10/2016 8:21 AM CDT Staff called [facility] PA Department at [phone] (Option#3). Staff is waiting for PA request to be faxed. Staff completed and faxed PA request for Subutex 2mg tablets 120 tablets per 30 days. Lupe Lantigua MA Telephone Encounter - Mark Roldan - 09/09/2016 2:29 PM CDT Prior Authorization needed on: 09/09/16 Medication: Buprenorphine HCL Dose: 2 mg Pharmacy confirmed as [facility] [address] [facility] , Insurance: Go to [id number] Insurance vigil: [id number] Mark Roldan September 09, 2016 at 2:29 PM documented in this encounter Plan of Treatment Upcoming Encounters Date Type Specialty Care Team Description 12/20/2021 Office Visit Wound Care Luis Camara DPM [address] [place], [place] [phone] (Wo rk) 01/21/2022 Office Visit Gastroenterology Juanis Levi [address] [place] [phone] Luis Fernando Miles MD [address] [facility] [address] [place] [address] documented as of this encounter Visit Diagnoses Not on filedocumented in this encounter Care Teams Insurance Sales Producer Relationship Specialty Start Date End Date Clinic, [facility] PCP - General 07/14/16 12/06/16 [facility] [place] [address] documented as of this encounter
--- OUTSIDE RECORDS SUMMARY | 2021-12-05 19:28 | XMS_ITS | Encounter Summary ---
:1980 Author Organization [place] Address [address] [facility] [place] [address] Care Team Providers Name Role Phone Clinic, Formerly [facility] Primary Care Provide r Reason for Visit Reason Comments Abnormal Bleeding Problem Encounter Details Date Type Department Care Team Description 08/01/2016 Office Visit [facility] Mark Turner APRN [facility] [address] [place], [place] [address] High-risk , first trimester (Pr imary Dx); [facility] Violeta Fagan APRN CNM [address] [place], [place] [address] Twin with loss and reten tion of one fetus in first trimester; [place] Anxiety; [address] Uncomplicated opioid depende nce (H); [place] Professional Histo ry of depression; [facility] Current every day smoker; 3rd Flr,Ronnie [address] Hypothyroidism affecting pre gnancy in first trimester; [place], [place] Chronic hepa titis C without hepatic coma (H); [phone] Family history of SIDS (sudd en syndrome); [phone] History of feta l anomaly in prior [...] at Date Recorded Female 01/14/2020 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 o Eat a healthy diet. Visit www.Digital Reasoningmyplate.gov and click on ??? and ??? forinformation and tips o Do not smoke. Avoid other people's smoke, too. We are happy to help with referrals to stop smokingprograms. o Do not drink alcohol. o Try to avoid people who have colds or other infections. Practice good hand washing. o Consider registering for our Healthy Class here at [facility]. This class is offered every Friday from 2:30-4:30 p.m. [place] at [phone] or online at [email or web address] or [email or web address] o Consider registering for education classes through [place] at [facility]. Youcan view class schedules and register online at [email or web address] or call [phone]) for questions For urgent concerns, call [facility] at to speak with a triage nurse [...] [place]-Vitamin D ??? CBC with Platelets Differential [OTS789] ??? Anti Treponema [IDN9242] ??? Rubella Antibody IgG Quantitative [[id number]] ??? Hepatitis B Surface Antigen [OJF830] ??? HIV Antigen Antibody Combo [[id number]] ??? Hepatitis C antibody ??? TSH with free T4 reflex ??? Hepatic Panel ??? Hepatitis C RNA quantitative ??? ABO/Rh Type and Screen [[id number]] - Oriented to Practice, types of care, [...] child born with cardiac and multiple anomalies. [facility] genetic appt scheduled 08/22/16. Plan echo [...] taper to chosen quit date. [facility]ed [facility] Wellbutrin use during to curb cravings. Epic message sent to pharmacist Dr. Lafleur to discuss meeting with pt to go over medication list make recommendations about [facility] Wellbutrin addition for smoking cessation. Pt agreeable. [...] of history and current medications/regimens again at [facility] to ensure no co morbids excluded from plan. Pt to RTO for [facility] visit in 2 weeks with physician and [...] Visit Wound Care Luis Camara DPM [address] [place], [place] [phone] (Wo rk) 01/21/2022 Office Visit Gastroenterology Juanis Levi [address] [place] [address] Luis Fernando Miles MD [address] [facility] [address] [place], [place] [phone] documented as of this encounter Results (ABNORMAL) Hepatitis C RNA quantitative (10/10/2016 1:52 PM CDT) [facility] Method Time Signature HCV RNA Quant 5,052,767 HCVND^HCV 10/14/2016 [facility] IU/ml (A) RNA Not 12:34 PM CDT [facility] [IU]/mL BANK Comment: The LEONARDO [...] (H) <1.2 Log IU/mL 10/14/2016 12:34 PM [facility] Specimen Anatomical Collection Method Collection Time Receive d Time (Source) Location / / Volume Laterality Blood specimen 10/10/2016 1:52 PM 017 1:55 (specimen) CDT PM CDT Violeta Bailey [place] VOLUNTEER SERVICES SUPERVISOR CNM LAB - BLOOD ORDERABLES Performing Organization Address City/State/ZIP Code Phon e Number [phone] [place] [address] (ABNORMAL) Hepatic Panel (10/10/2016 1:52 PM CDT) [facility] gist Method Time Signature Bilirubin Direct 0.1 0.0 - 0.2 10/10/2016 [facility] F mg/dL 3:12 PM T [facility] Bilirubin Total 0.4 0.2 - 1.3 10/10/2016 [facility] mg/dL 3:12 PM [facility] Albumin 2.8 (L) 3.4 - 5.0 10/10/2016 [facility] g/dL 3:12 PM T [facility] Protein Total 7.1 6.8 - 8.8 10/10/2016 [facility] g/dL 3:12 PM CDT [facility] Alkaline 60 40 - 150 10/10/2016 [facility] Phosphatase U/L 3:19 PM T [facility] ALT 27 0 - 50 U/L 10/10/2016 [facility] 3:12 PM T [facility] AST 17 0 - 45 U/L 10/10/2016 [facility] 3:12 PM T [facility] Specimen Anatomical Collection Method Collection Time Receive d Time (Source) Location / / Volume Laterality Blood specimen 10/10/2016 1:52 PM 017 1:55 (specimen) CDT PM CDT Violeta Lynnjason Fagan APRN, CNM LAB - BLOOD ORDERABLES Performing Organization Address City/State/ZIP Code Phon e Number [phone] [place] [address] TSH with free T4 reflex (10/10/2016 1:52 PM CDT) P athologist Signature TSH 1.66 0.40 - 4.00 10/10/2016 [facility] mU/L 3:19 PM CDT [facility] Specimen Anatomical Collection Method Collection Time Receive d Time (Source) Location / / Volume Laterality Blood specimen 10/10/2016 1:52 PM 017 1:55 (specimen) CDT PM CDT Violeta Fagan APRN [facility] LAB - BLOOD ORDERABLES Performing Organization Address City/[facility]/ZIP Code Phon e Number [phone] [place] [address] (ABNORMAL) Hepatitis C antibody (10/10/2016 1:52 PM CDT) [facility] gist Method Time Signature Hepatitis C Reactive (A) NR^Nonrea 10/11/2016 [facility] ctive 1:18 PM CDT [facility] Comment: A reactive result [...] City/[facility]/ZIP Code Phon e Number [facility] [address] HIV Antigen Antibody Combo [[id number]] (10/10/2016 1:52 PM CDT) [facility] Method Time Signature HIV Antigen Nonreactive NR^Nonrea 10/11/2016 [facility] Antibody ctive 1:18 PM CDT [facility] Comment: HIV-1 p24 Ag & HIV-1/HIV-2 Ab N ot Detected Specimen Anatomical Collection Method Collection Time Receive d Time (Source) Location / / Volume Laterality Blood specimen 10/10/2016 1:52 PM 017 1:55 (specimen) CDT PM CDT Violeta Fagan APRN, CNM LAB - BLOOD ORDERABLES Performing Organization Address City/[facility]/ZIP Code Phon e Number [facility] [address] Hepatitis B Surface Antigen [[id number]] (10/10/2016 1:52 PM CDT) [facility] Method Time Signature Hep B Surface Nonreactive NR^Nonrea 10/11/2016 [facility] Agn ctive 1:18 PM CDT [facility] Specimen Anatomical Collection Method Collection Time Receive d Time (Source) Location / / Volume Laterality Blood specimen 10/10/2016 1:52 PM 017 1:55 (specimen) CDT PM CDT Violeta Fagan APRN, CNM LAB - BLOOD ORDERABLES Performing Organization Address City/[facility]/ZIP Code Phon e Number [facility] [address] Rubella Antibody IgG Quantitative [[id number]] (10/10/2016 1:52 PM CDT) [facility] Signature Rubella Antibody 8 IU/mL 10/11/2016 [facility] F IgG Quantitative 1:44 PM CDT [facility] Comment: Equivocal, please recollect. [...] Phon e Number [facility] [address] [place] [address] [facility] Anti Treponema [[id number]] (10/10/2016 1:52 PM CDT) Analysis Performed At Patho logist Time Signature Treponema Negative NEG^Negati 10/11/2016 [facility] ve 10:21 AM CDT [facility] Specimen Anatomical Collection Method Collection Time Receive d Time (Source) Location / / Volume Laterality Blood specimen 10/10/2016 1:52 PM 017 1:55 (specimen) CDT PM CDT Violeta Fagan APRN [facility] LAB - BLOOD ORDERABLES Performing Organization Address City/[facility]/ZIP Code Phon e Number [facility] [address] (ABNORMAL) CBC with Platelets Differential [[id number]] (10/10/2016 1:52 PM CDT) Patholo gist Method Time Signature WBC 5.3 4.0 - 10/10/2016 [facility] 11.0 2:52 PM CDT [facility] 10e9/L [facility] RBC Count 3.64 (L) 3.8 - 5.2 10/10/2016 [facility] 10e12/L 2:52 PM CDT [facility] Hemoglobin 11.1 (L) 11.7 - 10/10/2016 [facility] 15.7 g/dL 2:52 PM CDT [facility] Hematocrit 32.7 (L) 35.0 - 10/10/2016 [facility] 47.0 % 2:52 PM CDT [facility] MCV 90 78 - 100 10/10/2016 [facility] fl 2:52 PM CDT [facility] MCH 30.5 26.5 - 10/10/2016 [facility] 33.0 pg 2:52 PM CDT [facility] MCHC 33.9 31.5 - 10/10/2016 [facility] 36.5 g/dL 2:52 PM CDT [facility] RDW 13.1 10.0 - 10/10/2016 [facility] 15.0 % 2:52 PM CDT [facility] Platelet Count 186 150 - 450 10/10/2016 [facility] 10e9/L 2:52 PM CDT [facility] Diff Method Automated 10/10/2016 [facility] Method 2:52 PM CDT [facility] % Neutrophils 61.4 % 10/10/2016 [facility] 2:52 PM CDT [facility] % Lymphocytes 29.2 % 10/10/2016 [facility] 2:52 PM CDT [facility] % Monocytes 6.2 % 10/10/2016 [facility] 2:52 PM CDT [facility] % Eosinophils 2.8 % 10/10/2016 [facility] 2:52 PM CDT [facility] % Basophils 0.2 % 10/10/2016 [facility] 2:52 PM CDT [facility] % Immature 0.2 % 10/10/2016 [facility] Granulocytes 2:52 PM CDT [facility] Nucleated RBCs 0 0 /100 10/10/2016 [facility] 2:52 PM CDT [facility] Absolute 3.3 1.6 - 8.3 10/10/2016 [facility] Neutrophil 10e9/L 2:52 PM CDT [facility] Absolute 1.6 0.8 - 5.3 10/10/2016 [facility] Lymphocytes 10e9/L 2:52 PM CDT [facility] Absolute 0.3 0.0 - 1.3 10/10/2016 [facility] Monocytes 10e9/L 2:52 PM CDT [facility] Absolute 0.2 0.0 - 0.7 10/10/2016 [facility] Eosinophils 10e9/L 2:52 PM CDT [facility] Absolute 0.0 0.0 - 0.2 10/10/2016 [facility] Basophils 10e9/L 2:52 PM CDT [facility] Abs Immature 0.0 0 - 0.4 10/10/2016 [facility] Granulocytes 10e9/L 2:52 PM CDT [facility] Absolute 0.0 10/10/2016 [facility] Nucleated RBC 2:52 PM T [facility] Specimen Anatomical Collection Method Collection Time Receive d Time (Source) Location / / Volume Laterality Blood specimen 10/10/2016 1:52 PM 017 1:55 (specimen) CDT PM CDT Violeta Fagan VOLUNTEER SERVICES SUPERVISOR [facility] LAB - BLOOD ORDERABLES Performing Organization Address City/[facility]/ZIP Code Phon e Number [place] [phone] [place] [address] [facility] ABO/Rh Type and Screen [[id number]] (10/10/2016 1:52 PM CDT) Patholo gist Method Time Signature ABO B 10/10/2016 [facility] 6:33 PM CDT [facility] RH(D) Pos [facility] Antibody Neg 10/10/2016 [facility] Screen 6:33 PM CDT [facility] Test Valid University 10/10/2016 [facility] Only [facility] [place] 4:54 PM CDT [facility] [facility] Specimen 10/13/2016 10/10/2016 [facility] Expires 4:54 PM CDT [facility] Specimen Anatomical Collection Method Collection Time Receive d Time (Source) Location / / Volume Laterality Blood specimen 10/10/2016 1:52 PM 017 1:56 (specimen) CDT PM CDT Violeta Bailey Rylan YANES [facility] LAB - BLOOD BANK TEST ORD ER Performing Organization Address [facility]/ZIP Code Phon e Number [place] [id number] [place] [address] [facility] 25- [place]-Vitamin D (10/10/2016 1:52 PM CDT) P athologist Signature Vitamin D 51 20 - 75 10/11/2016 [facility] Deficiency ug/L 1:18 PM CDT [place] [facility] screening [facility] Comment: Season, race, dietary intake, and treatm ent affect the concentration of 70-jspgpka-Viitupd D. Values may decreas e during winter [...] 1:55 (specimen) CDT PM CDT Violeta Fagan VOLUNTEER SERVICES SUPERVISOR CNM LAB - BLOOD ORDERABLES Performing Organization Address City/State/ZIP Code Phon e Number [phone] [place] [address] documented in this encounter Visit Diagnoses Diagnosis [...] disorder documented in this encounter Care Teams Medical Esthetician Relationship Specialty Start Date End Date Clinic, [facility] PCP - General 07/14/16 12/06/[address] [place] [address] documented as of this encounter
--- OUTSIDE RECORDS SUMMARY | 2021-12-05 19:28 | XMS_ITS | Encounter Summary ---
:1980 Author Organization [place] Address [address] [facility] [place] [address] Care Team Providers Name Role Phone Clinic, [facility] Primary Care Provide r Encounter Details Date Type Department Care Team Description 10/01/2016 Hospital Encounter [facility] Amanda, High -risk , Maternal MD Lashawn first trimester Medicine Center [address] [facility] [address] [facility] [phone] Social History Tobacco Use Types Packs/Day Years Used Date Smoking Tobacco: Every Day Cigarettes 0.1 10 Smokeless Tobacco: Never Comments: 5 cigarettes a day Alcohol Use Standard Drinks/Week Comments Yes 0 (1 standard drink = 0.6 oz pure Stoppe d after found out alcohol) Sex Assigned at Date Recorded Female 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 OB COMPLETE Routine 10/01/2016 11:57 AM [...] Name: KINGFRANSISCODI Study Date: 10:41am Pat. NO: [id number] Referring ??: RICHARD STEIN Site: [facility] Automotive Parts Counterperson: Magalis Pina RDMS : 1980 Age: 36 [...] 0 lb 8 ?oz Calculated by ?Hadlock ([id number]) Head / Face / Neck Biometry: Pack Puller ?5.2 ?mm ? Amniotic Fluid / FHR: [...] that she has transferred her care from [facility] to [facility] clinic at [facility] due to her complex history. HPI: [...] BREAST SURGERY ABcess drained ? SECTION ? SLICE PLUG CUTTER OPERATOR SURGERY Medications: WELLBUTRIN SR 150 MG 12 [...] Pat. Name:Elizabeth KING Date:10/01 10:41am Pat. NO: [id number] :May DENISHA [facility]JOHAN Garcia :1980Age:36 INDICATION Hypothyroid. Twin [...] 0 lb 8 oz Calculated by Flora (QLX-[id number]-FL) Head / Face / Neck Biometry: Pack Puller 5.2 mm Amniotic Fluid / FHR: AF [...] Ovary Visualized. Left Ovary Visualized. CONSULTATION Type: [facility] CONSULTATION. Maternal- Medicine Consultation REFERRAL: Dear Miss Jacob Gopal, Thank you for your maternal Medici ne consult regarding Miss King history of Subutex use, AMA and history of uterine rupture. During the consultation, Stephani let us shorty hi that she has transferred her care from [facility] to [facility] clinic at [facility] due to her complex history. HPI: [...] Live Births 7 #OutcomeDateGALbr Sherman/2ndWeightSexDelive ryAnesPTLLv 9Current 8Cpylshc52/03/0899j8s/ 01:060.325 kg (11 .5 oz)UVag-SpontFD Apgar1: 0 Apgar5: 0 0Msvl3433FO-LPwoevSMU 3Hucr0332WQ-EFvfonYKD 5TermLIV 4TermLIV 3TermLIV 2TermDEC 1TermDEC Past Medical History: DiagnosisDate ?Anxiety ?Chronic hepatitis C (H) ?Depressive disorder ?Hypothyroid ?Suboxone maintenance treatment complica ting , antepartum (H) Past Surgical History: ProcedureLateralityDate ?BREAST SURGERY ABcess drained ? SECTION ?SLICE PLUG CUTTER OPERATOR SURGERY Medications: WELLBUTRIN SR 150 MG 12 [...] is w ithin . [facility]el [facility] ORDER[facility]LES documented in this encounter Visit Diagnoses Diagnosis High-risk , first trimester documented in this encounter Care Teams Learning Disabilities Specialist Relationship Specialty Start Date End Date Clinic, [facility] PCP - General 07/14/16 12/06/16 [address] [place] [address] documented as of this encounter
--- OUTSIDE RECORDS SUMMARY | 2021-12-05 19:28 | XMS_ITS | Encounter Summary ---
:1980 Author Organization [place] Address [address] [facility] [place] [address] Care Team Providers Name Role Phone Clinic, [facility] Primary Care Provide r Reason for Visit Reason Onset Date Comments Establish Care 07/18/2016 care Encounter Details Date Type Department Care Team Description 07/18/2016 [facility] Mark Turner Establi [facility] HIGH SCHOOL SOCIAL STUDIES TUTOR CNM ( care) [facility] [address] SPECIALISTS [place] [facility] [address] [facility] [address] [place], [place] 3rd Flr,[facility] 300 [address] [place], [place] [phone] (Work) [phone] Social History Tobacco Use Types Packs/Day Years Used Date Smoking Tobacco: Every Day Cigarettes 0.1 10 Smokeless Tobacco: Never Comments: 5 cigarettes a day Alcohol Use Standard Drinks/Week Comments No 0 (1 standard drink = 0.6 oz pure alcoho l) Sex Assigned at Date Recorded Female 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/2020 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 documented as of this encounter Miscellaneous Notes [...] Visit Wound Care Luis Camara DPM [address] [place], [place] [phone] (Wo rk) 01/21/2022 Office Visit Gastroenterology Juanis Levi [address] [place] [address] Luis Fernando Miles MD 516 [facility] [address] [place], [place] [phone] documented as of this encounter Visit Diagnoses Diagnosis Supervision of high-risk , firs t trimester - Primary documented in this encounter Care Teams Diesel Engine Mechanic Apprentice Relationship Specialty Start Date End Date Clinic, [facility] PCP - General 07/14/16 12/06/[address] [place] [address] documented as of this encounter
--- OUTSIDE RECORDS SUMMARY | 2021-12-05 19:28 | XMS_ITS | Encounter Summary ---
:1980 Author Organization [place] Address Formerly [facility], [facility]0 [facility] [place] [address] Care Team Providers Name Role Phone Clinic, [facility] Primary Care Provide r Reason for Visit Reason Comments Vaginal Bleeding Encounter Details Date Type Department Care Team Description 08/29/2016 Emergency [facility] Jj Hermosillo, Abnormal vaginal bleeding; [facility] Emergency Dep t DO Threatened miscarriage [address] [facility] [place] [address] [address]POINTJon LUCIA [phone] [place] [address] (Wo rk) Social History Tobacco Use Types Packs/Day Years Used Date Smoking Tobacco: Every Day Cigarettes 0.1 10 Smokeless Tobacco: Never Comments: 5 cigarettes a day Alcohol Use Standard Drinks/Week Comments Yes 0 (1 standard drink = 0.6 oz pure Stoppe d after found out alcohol) Sex Assigned at Date Recorded Female 01/14/2020 10:57 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 Date Last Reviewed: 10/19/2015 ?? [phone] [employer]. [address] [place] [address], [place] [address]. All rights reserved. This information is not [...] Take 1 tablet (1 100 tablet 3 05/2 09/201601/31/2018 tablet mg) by mouth daily levothyroxine (SYNTHROID, [...] she is 13 weeks and follows at [facility]. She reports a history of complications, including [...] uterus Past Surgical History: Breast surgery section Damage Assessor surgery Orthopedic surgery Thoracic surgery Family History: [...] discussed the case with the patient's nurse authorization nurse out of [facility]. They believe she can be discharged, but [...] HOSPITAL EMERGENCY DEPARTMENT Jj Hermosillo DO 08/29/16 2226 documented in this encounter Plan of Treatment Upcoming Encounters Date Type Specialty Care Team Description 12/20/2021 Office Visit Wound Care Luis Camara DPM [address]09 [place] [address] (Wo rk) 01/21/2022 Office Visit Gastroenterology Juanis Levi 2450 [place] [phone] Luis Fernando Miles MD [address] [id number] documented as of this encounter Procedures Procedure [...] Neisseria gonorrhoea PCR (08/29/2016 5:30 PM CDT) Hydrocision Method Time Signature Specimen Vagina [facility] N Gonorrhea Negative NEG MICRO RAPID [...] e Number MICRO RAPID TESTING LAB [address] [place] [address] [facility] [address] [place], [place] [address] [facility] [phone] Chlamydia trachomatis PCR (08/29/2016 5:30 PM CDT) Component Value Ref Test Analysis Performed At Patholo gist Range Method Time Signature Specimen Vagina [facility] Chlamydia Negative NEG MICRO RAPID Trachomatis PCR Negative for C. trachomatis rRNA by van helper mediated amplification. TESTING LAB A negative result [...] MICRO GENERAL ORDERABL ES Performing Organization Address City/[facility]/ZIP [facility] Phon e Number MICRO RAPID TESTING LAB [address] [place] [address] [facility] [address] [place], [place] [address] 7, [facility] [phone] Wet prep (08/29/2016 5:30 PM CDT) Patholo gist Method Time Signature Specimen Vagina [facility] Wet Prep Few PMNs seen [place] No Trichomonas seen [facility] No yeast seen [facility] No clue cells seen Micro Report FINAL [place] Status 08/29/2016 [facility] Specimen Anatomical Collection Method Collection Time Receive d Time (Source) Location / / Volume Laterality Vaginal swab 08/29/2016 5:30 PM 7 5:41 (specimen) CDT PM CDT [place] [facility] - MICRO GENERAL ORDERABL ES Performing Organization Address [facility] Phon e Number [place] [address] [address] [place], [place] [address] [facility] [address] [place], [place] [address] 7, [facility] [phone] US OB < 14 Weeks Single (08/29/2016 [...] type and screen (08/29/2016 3:04 PM CDT) [facility] Method Time Signature ABO B [facility] RH(D) Pos [facility] Antibody Neg [place] Screen [facility] Test Valid [facility] Only At [facility] Specimen 09/01/2016 [place] Expires [facility] Specimen Anatomical Collection Method Collection Time Receive d Time (Source) Location / / Volume Laterality Blood specimen 08/29/2016 3:04 PM 017 5:13 (specimen) CDT PM CDT Jj Hermosillo DO LAB - BLOOD BANK TEST ORDER Performing Organization Address City/State/ZIP Code Phon e Number [place] [address] [address] [place] [address] [facility] [address] [phone] (ABNORMAL) Basic metabolic panel (08/29/2016 3:04 PM CDT) [facility] Method Time Signature Sodium 136 133 - 144 [place] mmol/L [facility] Potassium 2.9 (L) 3.4 - 5.3 [place] mmol/L [facility] Chloride 104 94 - 109 [place] mmol/L [facility] Carbon Dioxide 23 20 - 32 [place] mmol/L [facility] Anion Gap 9 3 - 14 [place] mmol/L [facility] Glucose 88 70 - 99 [place] mg/dL [facility] Urea Nitrogen 7 7 - 30 [place] mg/dL [facility] Creatinine 0.70 0.52 - [place] 1.04 [facility] mg/dL HOSPITAL GFR Estimate >90 >60 [place] Non GFR Calc mL/min/1. [facility] 7m2 [facility] GFR Estimate >90 >60 [place] If Black GFR Calc mL/min/1. [facility] 7m2 HOSPITAL Calcium 8.2 (L) 8.5 - [place] 10.1 [facility] mg/dL HOSPITAL Specimen Anatomical Collection Method Collection Time Receive d Time (Source) Location / / Volume Laterality Blood specimen 08/29/2016 3:04 PM 017 3:22 (specimen) CDT PM CDT Jj Hermosillo DO LAB - BLOOD ORDERABLES Performing Organization Address City/State/ZIP Code Phon e Number [place] [address] [address] [place], [place] [address] [facility] [address] [place], [place] [address] [place] [address] (ABNORMAL) CBC with platelets differential (08/29/2016 3:04 PM CDT) [facility] gist Method Time Signature WBC 6.6 4.0 - [place] 11.0 [facility] 10e9/L [facility] RBC Count 3.48 (L) 3.8 - 5.2 [place] 10e12/L [facility] Hemoglobin 10.9 (L) 11.7 - [place] 15.7 g/dL [facility] Hematocrit 31.9 (L) 35.0 - [place] 47.0 % [facility] MCV 92 78 - 100 [facility] MCH 31.3 26.5 - [place] 33.0 pg [facility] MCHC 34.2 31.5 - [place] 36.5 g/dL [facility] RDW 12.2 10.0 - [place] 15.0 % [facility] Platelet Count 163 150 - 450 [place] 10e9/L [facility] Diff Method Automated [place] Method [facility] % Neutrophils 57.1 % [facility] % Lymphocytes 31.2 % [facility] % Monocytes 7.4 % [facility] % Eosinophils 3.8 % [facility] % Basophils 0.2 % [facility] % Immature 0.3 % [place] Granulocytes [facility] Nucleated RBCs 0 0 /100 [facility] Absolute 3.8 1.6 - 8.3 [place] Neutrophil 10e9/L [facility] Absolute 2.1 0.8 - 5.3 [place] Lymphocytes 10e9/L [facility] Absolute 0.5 0.0 - 1.3 [place] Monocytes 10e9/L [facility] Absolute 0.3 0.0 - 0.7 [place] Eosinophils 10e9/L [facility] Absolute 0.0 0.0 - 0.2 [place] Basophils 10e9/L [facility] Abs Immature 0.0 0 - 0.4 [place] Granulocytes 10e9/L [facility] Absolute 0.0 [place] Nucleated RBC [facility] Specimen Anatomical Collection Method Collection Time Receive d Time (Source) Location / / Volume Laterality Blood specimen 08/29/2016 3:04 PM 017 3:22 (specimen) CDT PM CDT Jj Hermosillo DO LAB - BLOOD ORDERABLES Performing Organization Address City/State/ZIP Code Phon e Number [place] [address] [place] [address] [phone] documented in this encounter Visit Diagnoses Diagnosis [...] 1515 documented in this encounter Care Teams Development Executive Relationship Specialty Start Date End Date [facility], [facility] PCP - General 07/14/16 12/06/[address] [place], [place] [address] [address] documented as of this encounter
--- OUTSIDE RECORDS SUMMARY | 2021-12-05 19:28 | XMS_ITS | Encounter Summary ---
:1980 Author Organization [place] Address [address] [facility] [place] [address] Care Team Providers Name Role Phone Clinic, [facility] Primary Care Provide r Reason for Visit Reason Onset Date Comments Consult 09/17/2016 reschedule Encounter Details Date Type Department Care Team Description 09/17/2016 Telephone [facility] Anabelle Thomas ult (reschedule) Maternal Medicine GENARO [facility] [address] [place], [place] [address] [phone] Social History Tobacco Use Types Packs/Day Years Used Date Smoking Tobacco: Every Day Cigarettes 0.1 10 Smokeless Tobacco: Never Comments: 5 cigarettes a day Alcohol Use Standard Drinks/Week Comments Yes 0 (1 standard drink = 0.6 oz pure Stoppe d after found out alcohol) Sex Assigned at Date Recorded Female 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/2020 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
--- OUTSIDE RECORDS SUMMARY | 2021-12-05 19:28 | XMS_ITS | Encounter Summary ---
:1980 Author Organization [place] Address [address] [place] [address] Care Team Providers Name Role Phone Clinic, [facility] Primary Care Provide r Reason for Visit Reason Onset Date Comments Appointment 08/12/2016 Encounter Details Date Type Department Care Team Description 08/12/2016 Telephone [facility] Nithya Alfredo MD Appointment [place] [address] [facility] [address] [place], [place] [address] [phone] [place] [phone] Social History Tobacco Use Types Packs/Day Years Used Date Smoking Tobacco: Every Day Cigarettes 0.1 10 Smokeless Tobacco: Never Comments: 5 cigarettes a day Alcohol Use Standard Drinks/Week Comments Yes 0 (1 standard drink = 0.6 oz pure Stoppe d after found out alcohol) Sex Assigned at Date Recorded Female 01/14/2020 10:57 AM ACCESS DEVELOPER documented as of this encounter Miscellaneous [...] be reached at: Home number on file [phone] (home) Best Time: Anytime Can we leave a detailed message on this number? YES Call taken on 08/12/2016 at 10:28 AM by Dora Merchant documented in this encounter Plan of Treatment Upcoming Encounters Date Type Specialty Care Team Description 12/20/2021 Office Visit Wound Care Luis Camara DPM [address] [place], [place] [phone] (Wo rk) 01/21/2022 Office Visit Gastroenterology Juanis Levi [address] [place] [phone] Luis Fernando Miles MD 516 [facility] [address] [place], [place] [phone] documented as of this encounter Visit Diagnoses Not on filedocumented in this encounter Care Teams Battery Stacker Relationship Specialty Start Date End Date Clinic, [facility] PCP - General 07/14/16 12/06/[address] [place] [address] documented as of this encounter
--- OUTSIDE RECORDS SUMMARY | 2021-12-05 19:29 | XMS_ITS | Encounter Summary ---
:1980 Author Organization [place] Address [address] [facility] [place] [address] Care Team Providers Name Role Phone System, Provider Not In Primary Care Provider Unavailable Reason for Visit Reason Onset Date Comments Recheck Medication Erroneous encounter-disregard 09/29/2015 Encounter Details Date Type Department Care Team Description 09/25/2015 Office Visit [facility] Edgar Alfredo ERRONEOUS Clinic Ashly Gauthier MD ENCOUNTER--DISREGARD [address] [place] (Primary Dx) [address] [place] [phone] Social History Tobacco Use Types Packs/Day Years Used Date Smoking Tobacco: Every Day Cigarettes 0.1 10 Smokeless Tobacco: Never Comments: 5 cigarettes a day Alcohol Use Standard Drinks/Week Comments No 0 (1 standard drink = 0.6 oz pure alcoho l) Sex Assigned at Date Recorded Female 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 Please disregard. documented in this encounter Plan of Treatment Upcoming Encounters Date Type Specialty Care Team Description 12/20/2021 Office Visit Wound Care Luis Camara, CALIVN [address] [place], [place] [address] (Wo rk) 01/21/2022 Office Visit Gastroenterology Juanis Levi [address] [place] [address] Luis Fernando Miles MD 516 [facility] [address] [place], [place] [phone] documented as of this encounter Visit Diagnoses Diagnosis ERRONEOUS ENCOUNTER--DISREGARD - Primary documented in this encounter Care Teams Museum Tour Guide Relationship Specialty Start Date End Date System, Provider Not In PCP - General Clinic 08/12/14 07/13/16 documented as of this encounter
--- OUTSIDE RECORDS SUMMARY | 2021-12-05 19:29 | XMS_ITS | Encounter Summary ---
:1980 Author Organization [place] Address 2450 [facility] [place] [address] Care Team Providers Name Role Phone Clinic, [facility] Primary Care Provide r Encounter Details Date Type Department Care Team Description 07/14/2016 Telephone [facility] Nurse Jackeline Serrano, Advisors RN [address] [place] [phone] Social History Tobacco Use Types Packs/Day Years Used Date Smoking Tobacco: Every Day Cigarettes 0.1 10 Smokeless Tobacco: Never Comments: 5 cigarettes a day Alcohol Use Standard Drinks/Week Comments No 0 (1 standard drink = 0.6 oz pure alcoho l) Sex Assigned at Date Recorded Female 01/14/2020 10:57 AM RELISH MAKER documented as of this encounter Miscellaneous [...] Care Luis Camara DPM [address] [place] [address] (Wo rk) 01/21/2022 Office Visit Gastroenterology Juanis Levi [address] [place] [address] Luis Fernando Miles MD 6 [facility] [address] [place] [address] documented as of this encounter Visit Diagnoses Not on filedocumented in this encounter Care Teams Jewel Inserter Relationship Specialty Start Date End Date Clinic, [facility] PCP - General 07/14/16 12/06/[address] [place] [address] documented as of this encounter
--- OUTSIDE RECORDS SUMMARY | 2021-12-05 19:29 | XMS_ITS | Encounter Summary ---
:1980 Author Organization [place] Address [address] [facility] [place] [address] Care Team Providers Name Role Phone System, Provider Not In Primary Care Provider Unavailable Reason for Visit Reason Onset Date Comments Erroneous encounter-disregard 02/12/2016 Encounter Details Date Type Department Care Team Description 02/12/[address] 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 Please disregard. R COUNSELOR documented in this encounter Plan of Treatment Upcoming Encounters Date Type Specialty Care Team Description 12/20/2021 Office Visit Wound Care Luis Camara, CALVIN [address] [place] [employer], [place] [phone] (Wo rk) 01/21/2022 Office Visit Gastroenterology Junais Levi [address] [place] [phone] Luis Fernando Miles MD 516 [facility] [address] [place] [address] documented as of this encounter Visit Diagnoses Diagnosis ERRONEOUS ENCOUNTER--DISREGARD - Primary documented in this encounter Care Teams Jewellery Designer Relationship Specialty Start Date End Date System, Provider Not In PCP - General Clinic 08/12/14 07/13/16 documented as of this encounter
--- OUTSIDE RECORDS SUMMARY | 2021-12-05 19:29 | XMS_ITS | Encounter Summary ---
:1980 Author Organization [place] Address [address] [facility] [place] [address] Care Team Providers Name Role Phone System, Provider Not In Primary Care Provider Unavailable Reason for Visit Reason Comments Recheck Medication Encounter Details Date Type Department Care Team Description 12/04/[address] 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 [place] Board [employer] Data Base Reviewed: NO; [...] Take 1 tablet by mouth daily ??? Cmqygpam-Yyn-Ti-FA ( VITAMINS) 0.8 MG TABS Take 1 tablet by mouth daily 30 tablet 6 ??? [DISCONTINUED] VITAMINS PO Take by mouth. No Known Allergies Labs reviewed in [facility] OBJECTIVE: BP 137/81 mmHg Pulse 76 [...] visit in 1 MONTH Edgar Alfredo MD [facility] PRIMARY [facility]ARE documented in this encounter Nursing [...] Visit Wound Care Luis Camara DPM [address] [place] [address] (Wo rk) 01/21/2022 Office Visit Gastroenterology Juanis Levi [address] [place] [address] Luis Fernando Miles MD 516 [facility] [address] [place], [place] [phone] documented as of this encounter Procedures Procedure [...] Patholo gist Method Time Signature Buprenorphine Positive [place]ONIA Qual Urine [facility] Specimen Anatomical Collection Method Collection Time Receive d Time (Source) Location / / Volume Laterality Urine specimen 12/04/2015 11:28 6 (specimen) AM CDT 11:29 AM CDT Edgar Alfredo MD LAB - URINE ORDERABLES Performing Organization Address City/State/ZIP Code Phon e Number [address] [address] Drug abuse screen ([place], RW) (12/04/2015 11:28 AM CDT) Component Value Ref Test Analysis Performed Pathologis t Range Method Time At Signature Methamphetamine Negative NEG [facility] Qual Urine Cutoff for a negative methamphetamine is 1000 ng/mL or le ss. [facility] Cocaine Qual Urine Negative NEG [facility] Cutoff for a negative cocaine is 300 ng/mL or less. [facility] Cannabinoids Qual Negative NEG [facility] Urine Cutoff for a negative cannabinoid is 50 ng/mL or less. [facility] MDMA Qual Urine Negative NEG [facility] Cutoff for a negative MDMA (ecstasy) is 500 ng/mL or less. [facility] Methadone Qual Negative NEG [facility] Urine Cutoff for a negative methadone is 300 ng/mL or less. [facility] Opiates Negative NEG [facility] Qualitative Urine Cutoff for a negative opiate is 300 ng/mL or less. [facility] Benzodiazepine Negative NEG [facility] Qual Urine Cutoff for a negative benzodiazepine is 300 ng/mL or less . [facility] Tricyc Anti Qual Negative NEG [facility] Urine Cutoff for a negative tricyclic antidepressant is 1000 ng /mL or less. [facility] Barbiturates Qual Negative NEG [facility] Urine Cutoff for a negative barbituate is 300 ng/mL or less. [facility] PCP Qual Urine Negative NEG [place] Cutoff for a negative PCP is 25 ng/mL or less. [facility] Amphetamine Qual Negative NEG [place] Urine Cutoff for a negative amphetamine is 1000 ng/mL or less. [facility] Oxycodone Qual Negative NEG [place] Urine Cutoff for a negative Oxycodone is 100 ng/mL or less. [facility] Specimen Anatomical Collection Method Collection Time Receive d Time (Source) Location / / Volume Laterality Urine specimen 12/04/2015 11:28 6 (specimen) AM CDT 11:29 AM CDT Edgar Alfredo MD LAB - URINE ORDERABLES Performing Organization Address City/State/ZIP Code Phon e Number [facility] [address] [place] [address] documented in this encounter Visit Diagnoses Diagnosis Uncomplicated opioid dependence (H) - Pr imary Opioid type dependence, unspecified documented in this encounter Care Teams Modeling Analyst Relationship Specialty Start Date End Date System, Provider Not In PCP - General Clinic 08/12/14 07/13/16 documented as of this encounter
--- OUTSIDE RECORDS SUMMARY | 2021-12-05 19:29 | XMS_ITS | Encounter Summary ---
:1980 Author Organization [place] Address [address] [facility] [place] [address] Care Team Providers Name Role Phone System, Provider Not In Primary Care Provider Unavailable Reason for Visit Reason Comments Recheck Medication Encounter Details Date Type Department Care Team Description 04/09/2016 Office Visit [facility] Edgar Alfredo Uncomplic ated opioid dependence (H); Clinic Ashly Gauthier MD Major depressive disorder, recurrent epi sode, moderate (H) [address] [place] [phone] Social History Tobacco Use Types Packs/Day Years Used Date Smoking Tobacco: Every Day Cigarettes 0.1 10 Smokeless Tobacco: Never Comments: 5 cigarettes a day Alcohol Use Standard Drinks/Week Comments No 0 (1 standard drink = 0.6 oz pure alcoho l) Sex Assigned at Date Recorded Female 01/14/2020 10:57 AM OPERATOR SPECIALIST COMMUNICATIONS documented as of this encounter Last Filed Vital Signs Vital Sign Reading Time Taken Comments Blood Pressure 133/87 04/09/2016 10:36 AM OPERATOR SPECIALIST COMMUNICATIONS Pulse 87 04/09/2016 10:35 AM OPERATOR SPECIALIST COMMUNICATIONS Temperature 36.8 ??C (98.2 ??F) 04/09/2016 10:35 AM OPERATOR SPECIALIST COMMUNICATIONS Respiratory Rate 20 04/09/2016 10:35 AM OPERATOR SPECIALIST COMMUNICATIONS Oxygen Saturation 94% 04/09/2016 10:35 AM OPERATOR SPECIALIST COMMUNICATIONS Inhaled Oxygen Concentration - - Weight 83 kg (183 lb) 04/09/2016 10:35 AM OPERATOR SPECIALIST COMMUNICATIONS Height - - Body Mass Index 29.99 01/07/2013 11:29 AM OPERATOR SPECIALIST COMMUNICATIONS documented in this encounter Progress Notes Edgar [...] Take 1 tablet by mouth daily ??? Yhnvebjv-Klp-Gg-FA ( VITAMINS) 0.8 MG TABS Take 1 [...] less. 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 FOR CLINICAL BIOSTATISTICS DIRECTOR USE OF HIGH RISK MEDICATION High Risk [...] visit in 2 MONTHS Edgar Alfredo MD [facility] ATOR SPECIALIST COMMUNICATIONS documented in this encounter Nursing Notes Sabina [...] not appropriate to perform Sabina Mckay CMA ATOR SPECIALIST COMMUNICATIONS documented in this encounter Plan of Treatment Upcoming Encounters Date Type Specialty Care Team Description 12/20/2021 Office Visit Wound Care Luis Camara DPM [address] [place] [address] (Wo rk) 01/21/2022 Office Visit Gastroenterology Juanis Levi [address] [place] [address] Luis Fernando Miles MD [address] [facility] [address] [place], [place] [phone] documented as of this encounter Procedures Procedure Name Priority Date/Time Associated Diagnosis Comme nts HEPATIC FUNCTION Routine 04/09/2016 10:50 Uncomplicated opioid Results for this PANEL AM OPERATOR SPECIALIST COMMUNICATIONS dependence (H) procedure are in the results section. BUPRENORPHINE QUAL Routine 04/09/2016 10:32 Resul ts for this URINE AM OPERATOR SPECIALIST COMMUNICATIONS procedure are i n the results section. DRUG ABUSE SCREEN Routine 04/09/2016 10:32 Uncomplicated opioi d Results for this (NL, RW) AM OPERATOR SPECIALIST COMMUNICATIONS dependence (H) procedure are in the results section. documented in this encounter Results Hepatic panel (04/09/2016 10:50 AM OPERATOR SPECIALIST COMMUNICATIONS) Analysis Performed At [facility] Time Signature Bilirubin Direct 0.1 0.0 - 0.2 [place] mg/dL [facility] Bilirubin Total 0.4 0.2 - 1.3 [place] mg/dL [facility] Albumin 3.4 3.4 - 5.0 [place] g/dL [facility] Protein Total 7.2 6.8 - 8.8 [place] g/dL [facility] Alkaline 76 40 - 150 [place] Phosphatase U/L [facility] ALT 36 0 - 50 U/L [facility] AST 22 0 - 45 U/L [facility] Specimen Anatomical Collection Method Collection Time Receive d Time (Source) Location / / Volume Laterality Blood specimen 04/09/2016 10:50 7 (specimen) AM OPERATOR SPECIALIST COMMUNICATIONS 10:51 AM OPERATOR SPECIALIST COMMUNICATIONS Edgar Alfredo MD LAB - BLOOD ORDERABLES Performing Organization Address City/State/ZIP Code Phon e Number [facility] [address] [place] [address] Drug abuse screen (NL, RW) (04/09/2016 10:32 AM OPERATOR SPECIALIST COMMUNICATIONS) Component Value Ref Test Analysis Performed Pathologis [...] Urine specimen 04/09/2016 10:32 7 (specimen) AM OPERATOR SPECIALIST COMMUNICATIONS 10:33 AM OPERATOR SPECIALIST COMMUNICATIONS Edgar Alfredo MD LAB - URINE ORDERABLES Performing Organization Address [facility] Phon e Number [address] [facility] Buprenorphine Qual Urine (04/09/2016 10:32 AM OPERATOR SPECIALIST COMMUNICATIONS) [facility] gist Method Time Signature Buprenorphine Positive [facility] Qual Urine Specimen Anatomical Collection Method Collection Time Receive d Time (Source) Location / / Volume Laterality Urine specimen 04/09/2016 10:32 7 (specimen) AM OPERATOR SPECIALIST COMMUNICATIONS 10:33 AM OPERATOR SPECIALIST COMMUNICATIONS Edgar Alfredo MD LAB - URINE ORDERABLES Performing Organization Address [facility] Phon e Number [place], [place] [phone] [place] [address] [address] [facility] documented in this encounter Visit Diagnoses Diagnosis Uncomplicated opioid dependence (H) Opioid type dependence, unspecified Major depressive disorder, recurrent epi sode, moderate (H) Major depressive disorder, recurrent epi sode, moderate documented in this encounter Care Teams Barrel Roller Operator Relationship Specialty Start Date End Date System, Provider Not In PCP - General Clinic 08/12/14 07/13/16 documented as of this encounter
--- OUTSIDE RECORDS SUMMARY | 2021-12-05 19:29 | XMS_ITS | Encounter Summary ---
:1980 Author Organization [place] Address [address] [facility] [place] [place] [address] Care Team Providers Name Role Phone System, Provider Not In Primary Care Provider Unavailable Reason for Visit Reason Onset Date Comments Recheck Medication Erroneous encounter-disregard 01/08/2016 Encounter Details Date Type Department Care Team Description 01/01/2016 Office Visit [facility] Edgar Alfredo ERRONEOUS Clinic Ashly Gauthier MD ENCOUNTER--DISREGARD [address] [place] (Primary Dx) [address] [place] [phone] Social History Tobacco Use Types Packs/Day Years Used Date Smoking Tobacco: Every Day Cigarettes 0.1 10 Smokeless Tobacco: Never Comments: 5 cigarettes a day Alcohol Use Standard Drinks/Week Comments No 0 (1 standard drink = 0.6 oz pure alcoho l) Sex Assigned at Date Recorded Female 01/14/2020 10:57 AM AMPOULE WASHING 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 documented as of this encounter Progress Notes Edgar Alfredo MD - 01/08/2016 4:23 PM CST This encounter was opened in error. Please disregard. ULE WASHING 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 documented in this encounter Plan of Treatment Upcoming Encounters Date Type Specialty Care Team Description 12/20/2021 Office Visit Wound Luis Ramirez, [place] [address] [facility] [place], [place] [phone] (Wo rk) 01/21/2022 Office Visit Gastroenterology Juanis Levi [address] [place] [phone] Luis Fernando Miles MD [address] [facility] [address] [place], [place] [phone] documented as of this encounter Visit Diagnoses Diagnosis ERRONEOUS ENCOUNTER--DISREGARD - Primary documented in this encounter Care Teams Cut Filer Relationship Specialty Start Date End Date System, Provider Not In PCP - General Clinic 08/12/14 07/13/16 documented as of this encounter
--- OUTSIDE RECORDS SUMMARY | 2021-12-05 19:29 | XMS_ITS | Encounter Summary ---
:1980 Author Organization [place] Address [address] [place] [address] Care Team Providers Name Role Phone System, Provider Not In Primary Care Provider Unavailable Reason for Visit Reason Onset Date Comments Refill Request 10/17/2015 Subutex 2mg Encounter Details Date Type Department Care Team Description 10/17/2015 Refill [facility] Edgar Alfredo, Ref ill Request (Subutex Clinic [facility] 2mg ) [address] [place] [address] [place] [phone] (Wo rk) Social History Tobacco Use Types Packs/Day Years Used Date Smoking Tobacco: Every Day Cigarettes 0.1 10 Smokeless Tobacco: Never Comments: 5 cigarettes a day Alcohol Use Standard Drinks/Week Comments No 0 (1 standard drink = 0.6 oz pure alcoho l) Sex Assigned at Date Recorded Female 01/14/2020 10:57 AM CLINICAL PROJECT ASSISTANT documented as of this encounter Miscellaneous [...] # refills: 0 Last Office Visit with [facility] or [facility] prescribing provider: 09/28/15 Next 5 appointments (look out 90 days) Oct 24, 2015 11:30 AM Return Visit with Edgar Alfredo MD [facility] ([facility]) [address] [place] [address] [address] [facility] [phone] Thank you, Mark Roldan Housekeeping Aide Integrated Primary Care documented in this encounter Plan of Treatment Upcoming Encounters Date Type Specialty Care Team Description 12/20/2021 Office Visit Wound Care Luis Camara DPM [address] [facility] [place], [place] [phone] (Wo rk) 01/21/2022 Office Visit Gastroenterology Juanis Levi [address] [place] [phone] Luis Fernando Miles MD [address] [facility] [address] [place], [place] [address] documented as of this encounter Visit Diagnoses Diagnosis Uncomplicated opioid dependence (H) - Pr imary Opioid type dependence, unspecified documented in this encounter Care Teams Coal Unloader Relationship Specialty Start Date End Date System, Provider Not In PCP - General Clinic 08/12/14 07/13/16 documented as of this encounter
--- OUTSIDE RECORDS SUMMARY | 2021-12-05 19:29 | XMS_ITS | Encounter Summary ---
:1980 Author Organization [place] Address [address] [place] [address] Care Team Providers Name Role Phone System, Provider Not In Primary Care Provider Unavailable Reason for Visit Reason Onset Date Comments Prior Auth - Medication 10/26/2015 subutex 2 mg Encounter Details Date Type Department Care Team Description 10/26/2015 Telephone [facility] Edgar Alfredo Pri or Auth - Medication Clinic Ashly VÁSQUEZ (subutex 2 mg) [address] [place] [address] [place] [phone] (Wo rk) Social History Tobacco Use Types Packs/Day Years Used Date Smoking Tobacco: Every Day Cigarettes 0.1 10 Smokeless Tobacco: Never Comments: 5 cigarettes a day Alcohol Use Standard Drinks/Week Comments No 0 (1 standard drink = 0.6 oz pure alcoho l) Sex Assigned at Date Recorded Female 01/14/2020 10:57 AM CUSTOMER CONSULTING 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 documented in this encounter Plan of Treatment Upcoming Encounters Date Type Specialty Care Team Description 12/20/2021 Office Visit Wound Care Luis Camara DPM [address] [place], [place] [phone] (Wo rk) 01/21/2022 Office Visit Gastroenterology Juanis Levi [address] [place] [address] Luis Fernando Miles MD [address] [facility] [address] [place], [place] [address] documented as of this encounter Visit Diagnoses Not on filedocumented in this encounter Care Teams Traffic Survey Technician Relationship Specialty Start Date End Date System, Provider Not In PCP - General Clinic 08/12/14 07/13/16 documented as of this encounter
--- OUTSIDE RECORDS SUMMARY | 2021-12-05 19:29 | XMS_ITS | Encounter Summary ---
:1980 Author Organization [place] Address [address] [facility] [place] [address] Care Team Providers Name Role Phone System, Provider Not In Primary Care Provider Unavailable Reason for Visit Reason Onset Date Comments Recheck Medication Erroneous encounter-disregard 10/24/2015 Encounter Details Date Type Department Care Team Description 10/24/2015 Office Visit [facility] Edgar Alfredo NO SHOW ( Primary Dx) Clinic Ashly Gauthier MD [address] [place] [address] [place] [phone] Social History Tobacco Use Types Packs/Day Years Used Date Smoking Tobacco: Every Day Cigarettes 0.1 10 Smokeless Tobacco: Never Comments: 5 cigarettes a day Alcohol Use Standard Drinks/Week Comments No 0 (1 standard drink = 0.6 oz pure alcoho l) Sex Assigned at Date Recorded Female 01/14/2020 10:57 AM SPORTS PHYSICAL THERAPIST documented as of this encounter Progress Notes Edgar Alfredo MD - 10/24/2015 1:06 PM CDT This encounter was opened in error. Please disregard. documented in this encounter Plan of Treatment Upcoming Encounters Date Type Specialty Care Team Description 12/20/2021 Office Visit Wound Care Luis Camara, DPCamryn [address] [place], [place] [address] (Wo rk) 01/21/2022 Office Visit Gastroenterology Juanis Levi [address] [place] [phone] Luis Fernando Miles MD 516 [facility] [address] [place], [place] [phone] documented as of this encounter Visit Diagnoses Diagnosis NO SHOW - Primary documented in this encounter Care Teams Mail Handler Relationship Specialty Start Date End Date System, Provider Not In PCP - General Clinic 08/12/14 07/13/16 documented as of this encounter
--- OUTSIDE RECORDS SUMMARY | 2021-12-05 19:29 | XMS_ITS | Encounter Summary ---
:1980 Author Organization [place] Address [address] [facility] [place] [address] Care Team Providers Name Role Phone System, Provider Not In Primary Care Provider Unavailable Reason for Visit Reason Comments Recheck Medication Encounter Details Date Type Department Care Team Description 01/08/2016 Office Visit [facility] Edgar Alfredo Uncomplic ated opioid Clinic Ashly Gauthier MD dependence (H) (Primary [address] Dx) [address] [place] [phone] Social History Tobacco Use Types Packs/Day Years Used Date Smoking Tobacco: Every Day Cigarettes 0.1 10 Smokeless Tobacco: Never Comments: 5 cigarettes a day Alcohol Use Standard Drinks/Week Comments No 0 (1 standard drink = 0.6 oz pure alcoho l) Sex Assigned at Date Recorded Female 01/14/2020 10:57 AM SYSTEM OPERATOR documented as of this encounter Last Filed Vital Signs Vital Sign Reading Time Taken Comments Blood Pressure 126/99 01/08/2016 10:27 AM SYSTEM OPERATOR Pulse 112 01/08/2016 10:27 AM SYSTEM OPERATOR Temperature 36.7 ??C (98 ??F) 01/08/2016 10:27 AM SYSTEM OPERATOR Respiratory Rate 10 01/08/2016 10:27 AM SYSTEM OPERATOR Oxygen Saturation 99% 01/08/2016 10:27 AM SYSTEM OPERATOR Inhaled Oxygen Concentration - - Weight 79.8 kg (176 lb) 01/08/2016 10:27 AM SYSTEM OPERATOR Height - - Body Mass Index 28.84 01/07/2013 11:29 AM SYSTEM OPERATOR documented in this encounter Progress Notes [...] DOESN'T CONNECT WITH USERS ANYMORE GOES TO [facility], BIB STUDY DISCUSSED DOSE - NOT READY [...] program has been: ignored. BUT GOES TO [facility] Accompanying Signs & Symptoms: ?? Side Effects: none. Sobriety: ?? Status: no use since last visit. ?? Drug Screen: obtained. Precipitating factors: ?? Triggers have been: mild. Alleviating factors: ?? Contact with sponsor has been: no sponsor. ?? Family and support system has been: helpful. Other Therapies Tried : ?? Patient has been going to recovery meetings:not at all. [place] Board [employer]acy Data Base Reviewed: YES; [...] Take 1 tablet by mouth daily ??? Tmgnilxb-Mvd-Dq-FA ( VITAMINS) 0.8 MG TABS Take 1 [...] Positive 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 FOR JAIL [...] I DON'T DO DRUGS Edgar Alfredo MD [facility] EM OPERATOR documented in this encounter Plan of Treatment Upcoming Encounters Date Type Specialty Care Team Description 12/20/2021 Office Visit Wound Care Luis Camara, [place] [address] [place] [address] (Wo rk) 01/21/2022 Office Visit Gastroenterology Juanis Levi [address] [place] [address] Luis Fernando Miles MD [address] [facility] [address] [place] [address] documented as of this encounter Procedures Procedure Name Priority Date/Time Associated Comments Diagnosis BUPRENORPHINE QUAL Routine 01/08/2016 10:24 Resul ts for this URINE AM SYSTEM OPERATOR procedure are i n the results section. DRUG ABUSE SCREEN (NL, Routine 01/08/2016 10:24 R esults for this RW) AM SYSTEM OPERATOR procedure are i n the results section. documented in this encounter Results Buprenorphine Qual Urine (01/08/2016 10:24 AM SYSTEM OPERATOR) Patholo gist Method Time Signature Buprenorphine Positive [facility] LAB Qual Urine Specimen Anatomical Collection Method Collection Time Receive d Time (Source) Location / / Volume Laterality Urine specimen 01/08/2016 10:24 6 (specimen) AM SYSTEM OPERATOR 10:25 AM SYSTEM OPERATOR Edgar Alfredo MD LAB - URINE ORDERABLES Performing Organization Address City/State/[place] [address] [facility] [address] [place] [address] [address] [facility] (ABNORMAL) Drug abuse screen (NL, RW) (01/08/2016 10:24 AM SYSTEM OPERATOR) Component Value Ref Test Analysis Performed [...] Urine specimen 01/08/2016 10:24 6 (specimen) AM SYSTEM OPERATOR 10:25 AM SYSTEM OPERATOR Edgar Alfredo MD LAB - URINE ORDERABLES Performing Organization Address City/State/[place] [address] [facility] Building [address] [address] [facility] documented in this encounter Visit Diagnoses Diagnosis Uncomplicated opioid dependence (H) - Pr imary Opioid type dependence, unspecified documented in this encounter Care Teams Aircraft Sheet Metal Mechanic Relationship Specialty Start Date End Date System, Provider Not In PCP - General Clinic 08/12/14 07/13/16 documented as of this encounter
--- OUTSIDE RECORDS SUMMARY | 2021-12-05 19:29 | XMS_ITS | Encounter Summary ---
:1980 Author Organization [place] Address [address] [facility] [place] [address] Care Team Providers Name Role Phone System, Provider Not In Primary Care Provider Unavailable Reason for Visit Reason Onset Date Comments Medication Request 01/01/2016 Bridge for Subutex Encounter Details Date Type Department Care Team Description 01/01/2016 Telephone [facility] Edgar Alfredo, [facility] ication Request Clinic Ashly VÁSQUEZ (Bridge for Subutex) [address] [place] [address] [place] [phone] (Wo rk) Social History Tobacco Use Types Packs/Day Years Used Date Smoking Tobacco: Every Day Cigarettes 0.1 10 Smokeless Tobacco: Never Comments: 5 cigarettes a day Alcohol Use Standard Drinks/Week Comments No 0 (1 standard drink = 0.6 oz pure alcoho l) Sex Assigned at Date Recorded Female 01/14/2020 10:57 AM PIPE LAYER documented as of this encounter Miscellaneous Notes Telephone Encounter - Edgar Alfredo MD - 01/01/2016 12:39 PM CST Bridge called in Patient notified LAYER Telephone Encounter - Dora Merchant - 01/01/2016 12:05 PM CST Incoming call from pt checking on the status of request below. Thank you, Dora Merchant School Manager [facility] LAYER Telephone Encounter - SherwindaveMark - 01/01/2016 9:16 AM CST Reason for Call: Bridge for Subutex Detailed comments: pt can't make her appt today, its reschedule to 01/07, pt 's requesting a bridge for Subutex Phone Number Patient can be reached at: Home number on file [phone] (home) Best Time: anytime Can we leave a detailed message on this number? YES Call taken on 01/01/2016 at 9:16 AM by Mark Roldan Thank you, Mark Roldan School Manager Integrated [facility] LAYER documented in this encounter Plan of Treatment Upcoming Encounters Date Type Specialty Care Team Description 12/20/2021 Office Visit Wound Care Luis Camara DPM [address] [place] [address] (Wo rk) 01/21/2022 Office Visit Gastroenterology Juanis Levi [address] [place] [phone] Luis Fernando Miles MD 516 [facility] [address] [place] [address] documented as of this encounter Visit Diagnoses Diagnosis Uncomplicated opioid dependence (H) - Pr imary Opioid type dependence, unspecified documented in this encounter Care Teams Inside Sales Account Manager Relationship Specialty Start Date End Date System, Provider Not In PCP - General Clinic 08/12/14 07/13/16 documented as of this encounter
--- OUTSIDE RECORDS SUMMARY | 2021-12-05 19:29 | XMS_ITS | Encounter Summary ---
:1980 Author Organization [place] Address [address] [facility] [place] [address] Care Team Providers Name Role Phone System, Provider Not In Primary Care Provider Unavailable Reason for Visit Reason Comments Recheck Medication Encounter Details Date Type Department Care Team Description 09/28/2015 Office Visit [facility] Edgar Alfredoplic ated opioid dependence (H) (Primary Dx); Clinic Ashly Gauthier MD Major depressive disorder, recurrent epi sode, moderate (H) [address] [place] [phone] Social History Tobacco Use Types Packs/Day Years Used Date Smoking Tobacco: Every Day Cigarettes 0.1 10 Smokeless Tobacco: Never Comments: 5 cigarettes a day Alcohol Use Standard Drinks/Week Comments No 0 (1 standard drink = 0.6 oz pure alcoho l) Sex Assigned at Date Recorded Female 01/14/2020 10:57 AM METAL BUFFER documented as of this encounter Last Filed [...] THE SAME NO RECOVERY PROGRAM OTHER THAN CHEONDOISM SUPPORT Status since last visit: Since last [...] Take 1 tablet by mouth daily ??? Szqyogdk-Ixj-Ef-FA ( VITAMINS) 0.8 MG TABS Take 1 tablet by mouth daily 30 tablet 6 ??? [DISCONTINUED] VITAMINS PO Take by mouth. No Known Allergies Problem list, Medication list, Allergies, and Medical/Social/Surgical histories reviewed in [facility] andupdated as appropriate. ROS: OBJECTIVE: BP 128/70 [...] APPOINTMENTS: - Follow-up visit in 1 MONTH Edagr Alfredo MD [facility] documented in this [...] Visit Wound Care Luis Camara DPM [address] [place] [address] (Wo rk) 01/21/2022 Office Visit Gastroenterology Juanis Levi [address] [place] [address] Luis Fernando Miles MD 516 [facility] [address] [place] [address] documented as of this encounter Procedures Procedure [...] Organization Address City/State/[place] [address] [facility] Building [address] [facility] [address] RJ [...] Organization Address City/State/[place] [address] [facility] Building [address] [facility] documented in this encounter Visit Diagnoses Diagnosis Uncomplicated opioid dependence (H) - Pr imary Opioid type dependence, unspecified Major depressive disorder, recurrent epi sode, moderate (H) Major depressive disorder, recurrent epi sode, moderate documented in this encounter Care Teams Control Systems Drafting Officer Relationship Specialty Start Date End Date System, Provider Not In PCP - General Clinic 08/12/14 07/13/16 documented as of this encounter
--- OUTSIDE RECORDS SUMMARY | 2021-12-05 19:29 | XMS_ITS | Encounter Summary ---
:1980 Author Organization [place] Address [facility] [place] [address] Care Team Providers Name Role Phone Clinic, [facility] Primary Care Provide r Reason for Visit Reason Comments Threatened Miscarriage Encounter Details Date Type Department Care Team Description 07/14/2016 Emergency [facility] Santosh Spears, Twin gestation in first trimester, unspecified multiple gestation type; [facility] Emergency Dep t Threatened miscarriage in early pregnanc y [address] [facility] [place], [place] [address] [address] [phone] [facility] [address] [place] [address] (Wo rk) Social History Tobacco Use Types Packs/Day Years Used Date Smoking Tobacco: Every Day Cigarettes 0.1 10 Smokeless Tobacco: Never Comments: 5 cigarettes a day Alcohol Use Standard Drinks/Week Comments No 0 (1 standard drink = 0.6 oz pure alcoho l) Sex Assigned at Date Recorded Female 01/14/2020 10:57 AM TRANSPLANTER ORCHID documented as of this encounter Last Filed [...] care of you today. Thanks for visiting [facility] Emergency Room. Santosh Spears MD Vaginal Bleeding [...] by 30 tablet 6 12/10/2012 08/30/19 17 Gvqycddh-Iqt-Us-FA mouth daily ( VITAMINS) 0.8 MG TABSIndications: [...] smoker, 0.10 PPD. Alcohol Use: Yes PCP: [facility] Review of Systems Constitutional: Positive [...] understanding of the findings. Laboratory: HCG Quantitative: 64935 (H) CBC: WBC 7.9, HGB 12.6, PLT [...] and the provider's statements to me. 07/14/2016 [facility] EMERGENCY DEPARTMENT Santosh Spears MD 07/14/16 1206 documented in this encounter Plan of Treatment Upcoming Encounters Date Type Specialty Care Team Description 12/20/2021 Office Visit Wound Care Luis Camara, [place] [address] [place] [address] (Wo rk) 01/21/2022 Office Visit Gastroenterology Juanis Levi [address] [place] [address] Luis Fernando Miles MD 516 [facility] [address] [place] [address] documented as of this encounter [...] a mean sac diameter of 1.4 cm. [place]-rump length is 0.5 cm this cor responds to a gestational age of 6 weeks 2 days. Estimated date of del elmira is 03/07/2017. Yolk sac is identified. Heart rate is 1 26 bpm. Gestational sac B measures mean sac diam eter 0.8 cm. This corresponds to an age of 5 weeks 3 days. [place]-rump length is 0.3 cm corresponding to a [...] a mean sac diameter of 1.4 cm. [place]-rump length is 0.5 cm this cor responds to a gestational age of 6 weeks 2 days. Estimated date of del elimra is 03/07/2017. Yolk sac is identified. Heart rate is 1 26 bpm. Gestational sac B measures mean sac diam eter 0.8 cm. This corresponds to an age of 5 weeks 3 days. [place]-rump length is 0.3 cm corresponding to a [...] Immune Globulin Study (07/14/2016 7:46 AM CDT) [facility] [employer] Method Time Signature ABO B [facility] RH(D) Pos [facility] Blood Canceled, [place] Screen Test [facility] Blood Bank Not suitable for Rh Immune Globulin [facility] Comment Patien is Rh Positive [facility] Amount of RHIG Not suitable [facility] Required for Rh [facility] Globulin Specimen Anatomical Collection Method Collection Time Receive d Time (Source) Location / / Volume Laterality 07/14/2016 7:46 AM 7 7:58 CDT AM CDT Santosh Spears MD LAB - BLOOD BANK TEST ORDER Performing Organization Address City/State/ZIP Code Phon e Number [place] [address] [place] [address] [place] [address] [phone] ABO/Rh type and screen (07/14/2016 7:46 AM CDT) [facility] [employer] Method Time Signature ABO B [facility] RH(D) Pos [facility] Antibody Neg [place] Screen [facility] Test Valid [facility] Only At [facility] Specimen 07/17/2016 [place] ExpMerged with [facility] Specimen Anatomical Collection Method Collection Time Receive d Time (Source) Location / / Volume Laterality Blood specimen 07/14/2016 7:46 AM 017 8:01 (specimen) CDT AM CDT Santosh Spears MD LAB - BLOOD BANK TEST ORDER Performing Organization Address City/[facility]/ZIP [place] Phon e Number M [facility] [address] [place], [place] [address] [facility] [address] [place], [place] [address], [facility] [phone] Rho (D) immune globulin (RhoGam) Lab Study (07/14/2016 7:36 AM CDT) [facility] Method Time Signature Rhogam Order Order received [place] See Rhogam Study/[facility] Specimen Anatomical Collection Method Collection Time Receive d Time (Source) Location / / Volume Laterality 07/14/2016 7:36 AM 7 7:45 CDT AM CDT Santosh Spears MD LAB - BLOOD BANK PRODUCT ORD ER Performing Organization Address [facility]/ZIP [place] Phon e Number [facility] [address] [place], [place] [address] [place] [address] [address] [place], [place] [address] [address], [facility] [phone] (ABNORMAL) HCG QUANTitative (07/14/2016 5:28 AM CDT) [facility] Method Time Signature HCG Quantitative 19,512 0 - 5 [place] Serum (H) IU/L [facility] Specimen Anatomical Collection Method Collection Time Receive d Time (Source) Location / / Volume Laterality Blood specimen 07/14/2016 5:28 AM 017 7:59 (specimen) CDT AM CDT Santosh Spears MD LAB - BLOOD ORDERABLES Performing Organization Address City/[facility]/ZIP Code Phon e Number [facility] [address] [place], [place] [address] [facility] [address] [place], [place] [address] 7, [facility] [phone] CBC with platelets differential (07/14/2016 5:28 AM CDT) [facility] Method Time Signature WBC 7.9 4.0 - [place] 11.0 [facility] 10e9/L [facility] RBC Count 4.00 3.8 - 5.2 [place] 10e12/L [facility] Hemoglobin 12.6 11.7 - [place] 15.7 g/dL [facility] Hematocrit 37.4 35.0 - [place] 47.0 % [facility] MCV 94 78 - 100 [place] fl [facility] MCH 31.5 26.5 - [place] 33.0 pg [facility] MCHC 33.7 31.5 - [place] 36.5 g/dL [facility] RDW 13.3 10.0 - [place] 15.0 % [facility] Platelet Count 230 150 - [address] Diff Method Automated [place] Method [facility] % Neutrophils 42.2 % [facility] % Lymphocytes 48.0 % [facility] % Monocytes 6.4 % [facility] % Eosinophils 2.5 % [facility] % Basophils 0.6 % [facility] % Immature 0.3 % [place] Granulocytes [facility] Nucleated RBCs 0 0 /100 [facility] Absolute 3.3 1.6 - 8.[address] [place] [address] [facility] Absolute 3.8 0.8 - 5.[address] [place] Lymphocytes [address] [place] [address] Absolute 0.5 0.0 - 1.[address] [place] Monocytes [address] [place] [address] Absolute 0.2 0.0 - 0.7 [place] Eosinophils [address] [place] [address] Absolute 0.1 0.0 - 0.2 [place] Basophils [address] [place] [address] Abs Immature 0.0 0 - 0.[address] [place] Granulocytes [address] [place] [address] Absolute 0.0 [place] Nucleated RBC [facility] Specimen Anatomical Collection Method Collection Time Receive d Time (Source) Location / / Volume Laterality Blood specimen 07/14/2016 5:28 AM 017 7:59 (specimen) CDT AM CDT Santosh Spears MD LAB - BLOOD ORDERABLES Performing Organization Address City/State/ZIP Code Phon e Number M [facility] [address] [place], [place] [address] [facility] [address] [phone] documented in this encounter Visit Diagnoses Diagnosis [...] meds documented in this encounter Care Teams Health Companion Relationship Specialty Start Date End Date Clinic, [facility] PCP - General 07/14/16 12/06/[address] [place] [address] documented as of this encounter
--- OUTSIDE RECORDS SUMMARY | 2021-12-05 19:29 | XMS_ITS | Encounter Summary ---
:1980 Author Organization [place] Address [address] [facility] [place] [address] Care Team Providers Name Role Phone System, Provider Not In Primary Care Provider Unavailable Reason for Visit Reason Onset Date Comments Medication Request 06/19/2016 Suboxone Encounter Details Date Type Department Care Team Description 06/19/2016 Telephone [facility] Edgar Alfredo, [facility] ication Request Clinic Ashly VÁSQUEZ (Suboxone ) [address] [place] [address] [place] [address] (Wo rk) Social History Tobacco Use Types Packs/Day Years Used Date Smoking Tobacco: Every Day Cigarettes 0.1 10 Smokeless Tobacco: Never Comments: 5 cigarettes a day Alcohol Use Standard Drinks/Week Comments No 0 (1 standard drink = 0.6 oz pure alcoho l) Sex Assigned at Date Recorded Female 01/14/2020 10:57 AM AGENT CONTRACT CLERK documented as of this encounter Miscellaneous Notes Telephone Encounter - Edgar Alfreod MD - 06/19/2016 12:25 PM CDT Ordered Telephone Encounter - Dora Merchant - 06/19/2016 12:14 PM CDT Incoming call from pt requesting a prescription for Suboxone, since Subutex is not covered by her insurance. Pt would like script sent to: [place], [place] - [address] [place] [address] Dora Merchant Ceramic Capacitor Processor documented in this encounter Plan of Treatment Upcoming Encounters Date Type Specialty Care Team Description 12/20/2021 Office Visit Wound Care Luis Camara, [place] [address] [place] [address] (Wo rk) 01/21/2022 Office Visit Gastroenterology Juanis Levi [address] [place] [address] Luis Fernando Miles MD 516 [facility] [address] [place] [address] documented as of this encounter Visit Diagnoses Diagnosis Uncomplicated opioid dependence (H) - Pr imary Opioid type dependence, unspecified documented in this encounter Care Teams Asbestos Cement Sheet Supervisor Relationship Specialty Start Date End Date System, Provider Not In PCP - General Clinic 08/12/14 07/13/16 documented as of this encounter
--- OUTSIDE RECORDS SUMMARY | 2021-12-05 19:29 | XMS_ITS | Encounter Summary ---
:1980 Author Organization [place] Address [facility] [place] [address] Care Team Providers Name Role Phone Clinic, [facility] Primary Care Provide r Encounter Details Date Type Department Care Team Description 07/18/2016 Care Coordination [facility] Anabelle Thomas Maternal Medicine GENARO Norris [address] [address] Social History Tobacco Use Types Packs/Day Years Used Date Smoking Tobacco: Every Day Cigarettes 0.1 10 Smokeless Tobacco: Never Comments: 5 cigarettes a day Alcohol Use Standard Drinks/Week Comments No 0 (1 standard drink = 0.6 oz pure alcoho l) Sex Assigned at Date Recorded Female 01/14/2020 10:57 AM CARBURETOR SPECIALIST documented as of this encounter Plan of Treatment Upcoming Encounters Date Type Specialty Care Team Description 12/20/2021 Office Visit Wound Care Luis Camara DPM [address] [place] [address] (Wo rk) 01/21/2022 Office Visit Gastroenterology Juanis Levi [address] [place] [phone] Luis Fernando Miles MD [address] [id number] documented as of this encounter Visit Diagnoses Not on filedocumented in this encounter Care Teams Lard Bleacher Relationship Specialty Start Date End Date Clinic, [facility] PCP - General 07/14/16 12/06/[address] [place] [address] documented as of this encounter
--- OUTSIDE RECORDS SUMMARY | 2021-12-05 19:29 | XMS_ITS | Encounter Summary ---
:1980 Author Organization [place] Address [address] [facility] [place] [address] Care Team Providers Name Role Phone System, Provider Not In Primary Care Provider Unavailable Reason for Visit Reason Onset Date Comments Prior Auth - Medication 06/13/2016 buprenorphine (S UBUTEX) 2 MG Encounter Details Date Type Department Care Team Description 06/13/2016 Telephone [facility] Edgar Alfredo Pri or Auth - Medication Clinic Ashly VÁSQUEZ (buprenorphine [address] [place] (SUBUTEX) 2 MG) [address] [place] [phone] (Wo rk) Social History Tobacco Use Types Packs/Day Years Used Date Smoking Tobacco: Every Day Cigarettes 0.1 10 Smokeless Tobacco: Never Comments: 5 cigarettes a day Alcohol Use Standard Drinks/Week Comments No 0 (1 standard drink = 0.6 oz pure alcoho l) Sex Assigned at Date Recorded Female 01/14/2020 10:57 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 Lupe Lantigua MA Telephone Encounter - Lupe Lantigua CMA - 06/14/2016 9:48 AM CDT changed Subutex Rx to Suboxone instead. Staff called [facility] at [phone] and was informed an Prior Authorization is needed for buprenorphine HCl-naloxone HCl (SUBOXONE) 2-0.5 MG per film 25 Film. Staff called [employer] to Submit PA via phone for buprenorphine HCl- naloxone HCl (SUBOXONE) 2-0.5 MG per film 25 Film. Staff is waiting for a response. [place] Medicaid ID# [id number] NDC# [id number] Pharm NPI# [id number] Pharm Pharm Insurance Phone# Telephone Encounter - Mark Roldan - 06/13/2016 3:41 PM CDT Patient called she would like a call back on the Status of the PA. Pt contact info: [phone] Ok to leave derailed message. Mark Roldan Senior Technical Program Manager Telephone Encounter - Dora Merchant - 06/13/2016 2:56 PM CDT Fax received from [facility] requesting that PA be re-submitted with pharmacy name, NPI, phone number and fax number. Another form received from pharmacy requesting that PA be submitted via covermymeds. Beat[place]: [id number] [employer] Publisher [employer] placed forms in provider's folder Dora Merchant Senior Technical Program Manager Telephone Encounter - Sarah Calvert MA - 06/13/2016 1:54 PM CDT Per Insurance PA denied the authorization criteria were not met, documents verifying clear intolerance to naloxonemust be provided for prison therapy. Routing to provider to review and Advise Sarah Calvert MA June 13, 2016 Telephone Encounter - Mark Roldan - 06/13/2016 12:09 PM CDT PA denied the authorization criteria were not met, documents verifying clear intolerance to naloxonemust be provided for prison therapy. [employer]isher [employer] placed form in provider's folder. Mark Roldan Senior Technical Program Manager Telephone Encounter - Dora Merchant - 06/13/2016 10:32 AM CDT Fax received from pharmacy 06/13/16 requesting an urgent PA. Pt has been out of medication for a while. Insurance phone #: [phone] Dora Merchant Senior Technical Program Manager Telephone Encounter - Dora Merchant - 06/13/2016 8:23 AM CDT Incoming call from pt requesting a PA for buprenorphine (SUBUTEX) 2 MG. TC's have not received a PA request from the pharmacy. Prior Authorization needed on: 06/13/16 Medication: buprenorphine (SUBUTEX) Dose: 2 MG Insurance Name: [place] Insurance Phone: not available Insurance Dora Merchant June 13, 2016 at 8:24 AM documented in this encounter Plan of Treatment Upcoming Encounters Date Type Specialty Care Team Description 12/20/2021 Office Visit Wound Care Luis Camara DPM [address] [place], [place] [address] (Wo rk) 01/21/2022 Office Visit Gastroenterology Juanis Levi [address] [place] [address] Luis Fernando Miles MD [address] [place] [address] documented as of this encounter Visit Diagnoses Not on filedocumented in this encounter Care Teams Bottom Turner Relationship Specialty Start Date End Date System, Provider Not In PCP - General Clinic 08/12/14 07/13/16 documented as of this encounter
--- OUTSIDE RECORDS SUMMARY | 2021-12-05 19:29 | XMS_ITS | Encounter Summary ---
:1980 Author Organization [place] Address [address] [facility] [place] [address] Care Team Providers Name Role Phone Clinic, [facility] Primary Care Provide r Reason for Referral - Closed Specialty Diagnoses / Procedures Referred By Contact Refer red To Contact Diagnoses Supervision of high-risk , first trimester Ur Maternal Med [address] [place], [place] [address] Referral ID Status Reason Start Date Expiration Date Visits Requ ested Visits Authorized [id number] Closed 08/22/2016 08/22/2017 1 1 Encounter Details Date Type Department Care Team Description 07/18/2016 Orders Only [facility] Anabelle Thomas rvision of Maternal GENARO Norris high-risk pre gnancy, Medicine Center [facility] (Primary Dx) [address] [place], [place] [address] Social History Tobacco Use Types Packs/Day Years Used Date Smoking Tobacco: Every Day Cigarettes 0.1 10 Smokeless Tobacco: Never Comments: 5 cigarettes a day Alcohol Use Standard Drinks/Week Comments No 0 (1 standard drink = 0.6 oz pure alcoho l) Sex Assigned at Date Recorded Female 01/14/2020 10:57 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 NO: [id number] Referring ??MD: RICHARD STEIN Site: [facility] Pulley Maintainer: Mayela Teague RD MS : 1980 Age: [...] Pat. Name:FRANSISCO REDDYReymundo Date:09/10 12:12pm Pat. NO: [id number] MD:MAY JITENDRA DENNY Site:[facility]onographer:Mayela Teague RDMS :1980Age:35 [...] cm long without fun neling. Lashawn [facility] US ORDERABLES documented in this encounter Visit Diagnoses Diagnosis Supervision of high-risk , firs t trimester - Primary Supervision of high-risk , firs t trimester documented in this encounter Care Teams Global Compensation Manager Relationship Specialty Start Date End Date Clinic, [facility] PCP - General 07/14/16 12/06/16 [facility] [place] [address] documented as of this encounter
--- OUTSIDE RECORDS SUMMARY | 2021-12-05 19:29 | XMS_ITS | Encounter Summary ---
:1980 Author Organization [place] Address [address] [facility] [place] [address] Care Team Providers Name Role Phone System, Provider Not In Primary Care Provider Unavailable Reason for Visit Reason Onset Date Comments Medication Request 03/12/2016 Bridge for Subutex Encounter Details Date Type Department Care Team Description 03/12/2016 Telephone [facility] Edgar lAfredo, [facility] ication Request Clinic Ashly VÁSQUEZ (Bridge for Subutex ) [address] [place] [address] [place] [phone] (Wo rk) Social History Tobacco Use Types Packs/Day Years Used Date Smoking Tobacco: Every Day Cigarettes 0.1 10 Smokeless Tobacco: Never Comments: 5 cigarettes a day Alcohol Use Standard Drinks/Week Comments No 0 (1 standard drink = 0.6 oz pure alcoho l) Sex Assigned at Date Recorded Female 01/14/2020 10:57 AM WARP SPINNER documented as of this encounter Miscellaneous Notes Telephone Encounter - Edgar Alfredo MD - 03/12/2016 12:50 PM CST Bridge ordered SPINNER Telephone Encounter - Mark Roldan - 03/12/2016 10:13 AM CST Reason for Call: Bridge for Subutex Detailed comments: pt is requesting a bridge until her next appt on 04/09/16 Phone Number Patient can be reached at: Home number on file [phone] (home) Best Time: anytime Can we leave a detailed message on this number? YES Call taken on 03/12/2016 at 10:13 AM by Mark Roldan Thank you, Mark Roldan Environmental Maintenance Worker Integrated Primary Care SPINNER documented in this encounter Plan of Treatment Upcoming Encounters Date Type Specialty Care Team Description 12/20/2021 Office Visit Wound Care Luis Camara DPM [address] [place], [place] [address] (Wo rk) 01/21/2022 Office Visit Gastroenterology Juanis Levi [address] [place] [address] Luis Fernando Miles MD 6 [facility] [address] [place], [place] [address] documented as of this encounter Visit Diagnoses Diagnosis Uncomplicated opioid dependence (H) - Pr imary Opioid type dependence, unspecified documented in this encounter Care Teams Teacher Adventure Education Relationship Specialty Start Date End Date System, Provider Not In PCP - General Clinic 08/12/14 07/13/16 documented as of this encounter
--- OUTSIDE RECORDS SUMMARY | 2021-12-05 19:29 | XMS_ITS | Encounter Summary ---
:1980 Author Organization [place] Address [address] [facility] [place] [address] Care Team Providers Name Role Phone System, Provider Not In Primary Care Provider Unavailable Reason for Visit Reason Onset Date Comments Medication Request 10/25/2015 Encounter Details Date Type Department Care Team Description 10/25/2015 Telephone [facility] Edgar Alfredo Ma, Medication Request [place] [address] [place] [address] [place] [phone] (Reinaldo rk) Social History Tobacco Use Types Packs/Day Years Used Date Smoking Tobacco: Every Day Cigarettes 0.1 10 Smokeless Tobacco: Never Comments: 5 cigarettes a day Alcohol Use Standard Drinks/Week Comments No 0 (1 standard drink = 0.6 oz pure alcoho l) Sex Assigned at Date Recorded Female 01/14/2020 10:57 AM CHEMICAL TANK WORKER documented as of this encounter Miscellaneous Notes Addendum Note - Suyapa Murray CMA - 10/26/2015 11:09 AM CDT Addended by: SUYAPA MURRAY on: 10/26/2015 11:09 AM Modules accepted: Medications Telephone Encounter - Suyapa Murray CMA - 10/26/2015 11:09 AM CDT Rx called to [facility] Telephone Encounter - Edgar Alfredo MD [...] Visit Wound Care Luis Camara DPM [address] [place], [place] [phone] (Wo rk) 01/21/2022 Office Visit Gastroenterology Juanis Levi [address] [place] [address] Luis Fernando Miles MD 516 [facility] [address] [place] [address] documented as of this encounter Visit Diagnoses Diagnosis Uncomplicated opioid dependence (H) - Pr imary Opioid type dependence, unspecified documented in this encounter Care Teams Fuel Tank Sealer And Tester Relationship Specialty Start Date End Date System, Provider Not In PCP - General Clinic 08/12/14 07/13/16 documented as of this encounter
--- OUTSIDE RECORDS SUMMARY | 2021-12-05 19:29 | XMS_ITS | Encounter Summary ---
:1980 Author Organization [place] Address [address] [facility] [place] [address] Care Team Providers Name Role Phone System, Provider Not In Primary Care Provider Unavailable Reason for Visit Reason Comments Recheck Medication Encounter Details Date Type Department Care Team Description 02/13/2016 Office Visit [facility] Edgar Alfredo Uncomplic ated opioid Clinic Ashly Gauthier MD dependence (H) (Primary [address]x) [address] [place] [address] Social History Tobacco Use Types Packs/Day Years Used Date Smoking Tobacco: Every Day Cigarettes 0.1 10 Smokeless Tobacco: Never Comments: 5 cigarettes a day Alcohol Use Standard Drinks/Week Comments No 0 (1 standard drink = 0.6 oz pure alcoho l) Sex Assigned at Date Recorded Female 01/14/2020 10:57 AM CENTER LEAD CONSULTANT documented as of this encounter Last Filed Vital Signs Vital Sign Reading Time Taken Comments Blood Pressure 145/97 02/13/2016 10:59 AM CENTER LEAD CONSULTANT Pulse 113 02/13/2016 10:59 AM CENTER LEAD CONSULTANT Temperature 36.6 ??C (97.9 ??F) 02/13/2016 10:59 AM CENTER LEAD CONSULTANT Respiratory Rate 10 02/13/2016 10:59 AM CENTER LEAD CONSULTANT Oxygen Saturation 98% 02/13/2016 10:59 AM CENTER LEAD CONSULTANT Inhaled Oxygen Concentration - - Weight 79.4 kg (175 lb) 02/13/2016 10:59 AM CENTER LEAD CONSULTANT Height - - Body Mass Index 28.68 01/07/2013 11:29 AM CENTER LEAD CONSULTANT documented in this encounter Progress Notes [...] been going to recovery meetings:not at all. [place] [employer] Data Base Reviewed: YES; [...] Take 1 tablet by mouth daily ??? Yuvsygmn-Lsb-Ad-FA ( VITAMINS) 0.8 MG TABS Take 1 [...] less. 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 FOR PARTY PLAN SALES DIRECTOR USE OF HIGH RISK MEDICATION High [...] Edgar Alfredo MD [facility] ER LEAD CONSULTANT documented in this encounter Plan of Treatment Upcoming Encounters Date Type Specialty Care Team Description 12/20/2021 Office Visit Wound Care Luis Camara DPM [address] [place] [address] (Wo rk) 01/21/2022 Office Visit Gastroenterology Juanis Levi [address] [place] [address] Luis Fernando Miles MD [address] [address] documented as of this encounter Procedures Procedure Name Priority Date/Time Associated Diagnosis Comme nts BUPRENORPHINE QUAL Routine 02/13/2016 10:58 Uncomplicated opio id Results for this URINE AM CENTER LEAD CONSULTANT dependence (H) procedure are in the results section. DRUG ABUSE SCREEN Routine 02/13/2016 10:58 Uncomplicated opioi d Results for this (NL, RW) AM CENTER LEAD CONSULTANT dependence (H) procedure are in the results section. documented in this encounter Results Drug abuse screen (NL, RW) (02/13/2016 10:58 AM CENTER LEAD CONSULTANT) Component Value Ref Test Analysis Performed [...] Urine specimen 02/13/2016 10:58 6 (specimen) AM CENTER LEAD CONSULTANT 10:59 AM CENTER LEAD CONSULTANT Edgar Alfredo MD LAB - URINE ORDERABLES Performing Organization Address City/State/[place] [address] [facility] Building [address] [facility] Buprenorphine Qual Urine (02/13/2016 10:58 AM CENTER LEAD CONSULTANT) [facility] gist Method Time Signature Buprenorphine Positive [facility] Qual Urine Specimen Anatomical Collection Method Collection Time Receive d Time (Source) Location / / Volume Laterality Urine specimen 02/13/2016 10:58 6 (specimen) AM CENTER LEAD CONSULTANT 10:59 AM CENTER LEAD CONSULTANT Edgar Alfredo MD LAB - URINE ORDERABLES Performing Organization Address City/[facility] [place] [address] [facility] [address] [facility] documented in this encounter Visit Diagnoses Diagnosis Uncomplicated opioid dependence (H) - Pr imary Opioid type dependence, unspecified documented in this encounter Care Teams Hot Top Liner Relationship Specialty Start Date End Date System, Provider Not In PCP - General Clinic 08/12/14 07/13/16 documented as of this encounter
--- OUTSIDE RECORDS SUMMARY | 2021-12-05 19:29 | XMS_ITS | Encounter Summary ---
:1980 Author Organization [place] Address [address] [facility] [place] [address] Care Team Providers Name Role Phone System, Provider Not In Primary Care Provider Unavailable Reason for Visit Reason Onset Date Comments Patient Request 11/22/2015 [facility] appt Encounter Details Date Type Department Care Team Description 11/22/2015 Telephone [facility] Edgar Alfredo Pat ient Request ([facility] appt ) [address] [place] [address] [place] [phone] (Wo rk) Social History Tobacco Use Types Packs/Day Years Used Date Smoking Tobacco: Every Day Cigarettes 0.1 10 Smokeless Tobacco: Never Comments: 5 cigarettes a day Alcohol Use Standard Drinks/Week Comments No 0 (1 standard drink = 0.6 oz pure alcoho l) Sex Assigned at Date Recorded Female 01/14/2020 10:57 AM PRECISION LENS GRINDER APPRENTICE documented as of this encounter Miscellaneous [...] than 12/04/15. Pt refused to disclose to scientific technical writer why she'd like to be seen sooner. Please follow up. Contact info: [phone] (Ok to leave detailed message, per pt) Thank you, Dora Merchant Junior Estimator [facility] documented in this encounter Plan of Treatment Upcoming Encounters Date Type Specialty Care Team Description 12/20/2021 Office Visit Wound Care Luis Camara, [place] [address] [place], [place] [address] (Wo rk) 01/21/2022 Office Visit Gastroenterology Juanis Levi [address] [place] [address] Luis Fernando Miles MD 516 [facility] [address] [place] [address] documented as of this encounter Visit Diagnoses Not on filedocumented in this encounter Care Teams Jointer Machine Relationship Specialty Start Date End Date System, Provider Not In PCP - General Clinic 08/12/14 07/13/16 documented as of this encounter
--- OUTSIDE RECORDS SUMMARY | 2021-12-05 19:29 | XMS_ITS | Encounter Summary ---
:1980 Author Organization [place] Address [address] [facility] [place] [address] Care Team Providers Name Role Phone Clinic, [facility] Primary Care Provide r Reason for Visit Reason Onset Date Comments Medication Request 07/16/2016 Encounter Details Date Type Department Care Team Description 07/16/2016 Telephone [facility] Edgar Alfredo Ma rk, Medication Request Ashly VÁSQUEZ [address] [place] [address] [place] [phone] (Wo rk) Social History Tobacco Use Types Packs/Day Years Used Date Smoking Tobacco: Every Day Cigarettes 0.1 10 Smokeless Tobacco: Never Comments: 5 cigarettes a day Alcohol Use Standard Drinks/Week Comments No 0 (1 standard drink = 0.6 oz pure alcoho l) Sex Assigned at Date Recorded Female 01/14/2020 10:57 AM 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 Pharmacy of choice: [facility] - [place], [place] - [address] Phone Number Patient can be reached at: Home number on file [phone] (home) Best Time: Anytime Can we leave a detailed message on this number? YES Call taken on 07/16/2016 at 2:10 PM by Dora Merchant documented in this encounter Plan of Treatment Upcoming Encounters Date Type Specialty Care Team Description 12/20/2021 Office Visit Wound Care Luis Camara DPM [address] [place] [address] (Wo rk) 01/21/2022 Office Visit Gastroenterology Juanis Levi [address] [place] [phone] Luis Fernando Miles MD 516 [facility] [address] [place] [address] documented as of this encounter Visit Diagnoses Not on filedocumented in this encounter Care Teams Basket Operator Relationship Specialty Start Date End Date Clinic, [facility] Medical PCP - General 07/14/16 12/06/[address] [place] [address] documented as of this encounter
--- OUTSIDE RECORDS SUMMARY | 2021-12-05 19:29 | XMS_ITS | Encounter Summary ---
:1980 Author Organization [place] Address [address] [facility] [place] [address] Care Team Providers Name Role Phone System, Provider Not In Primary Care Provider Unavailable Reason for Visit Reason Onset Date Comments Medication Request 06/03/2016 Subx bridge Encounter Details Date Type Department Care Team Description 06/03/[address] [facility] Edgar Alfredo, [facility] ication Request Clinic Ashly VÁSQUEZ (Subx bridge) [address] [place] [address] [place] [address] (Wo rk) Social History Tobacco Use Types Packs/Day Years Used Date Smoking Tobacco: Every Day Cigarettes 0.1 10 Smokeless Tobacco: Never Comments: 5 cigarettes a day Alcohol Use Standard Drinks/Week Comments No 0 (1 standard drink = 0.6 oz pure alcoho l) Sex Assigned at Date Recorded Female 01/14/2020 10:57 AM DATA VISUALIZATION DEVELOPER documented as of this encounter Miscellaneous [...] 06/17/16. Pt would like script sent to [address] Dora Merchant Feather Shaper documented in this encounter Plan of Treatment Upcoming Encounters Date Type Specialty Care Team Description 12/20/2021 Office Visit Wound Care Luis Camara, [place] [address] [place], [place] [address] (Wo rk) 01/21/2022 Office Visit Gastroenterology Juanis Levi [address] [place] [address] Luis Fernando Miles MD 516 [facility] [address] [place], [place] [address] documented as of this encounter Visit Diagnoses Diagnosis Uncomplicated opioid dependence (H) Opioid type dependence, unspecified documented in this encounter Care Teams Medicare Coordinator Relationship Specialty Start Date End Date System, Provider Not In PCP - General Clinic 08/12/14 07/13/16 documented as of this encounter
--- OUTSIDE RECORDS SUMMARY | 2021-12-05 19:29 | XMS_ITS | Encounter Summary ---
:1980 Author Organization [place] Address [address] [place] [place] [address] Care Team Providers Name Role Phone System, Provider Not In Primary Care Provider Unavailable Reason for Visit Reason Comments Recheck Medication Encounter Details Date Type Department Care Team Description 11/06/[address] [facility] Edgar Alfredo Seasonal allergic rhinitis (Primary Dx); Clinic Ashly Gauthier MD Uncomplicated opioid dependence (H) [address] [place] [address] Social History Tobacco Use Types Packs/Day Years Used Date Smoking Tobacco: Every Day Cigarettes 0.1 10 Smokeless Tobacco: Never Comments: 5 cigarettes a day Alcohol Use Standard Drinks/Week Comments No 0 (1 standard drink = 0.6 oz pure alcoho l) Sex Assigned at Date Recorded Female 01/14/2020 10:57 AM SKEIN 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 documented as of this encounter Last Filed [...] Take 1 tablet by mouth daily ??? Xsfierhj-Dxl-Rc-FA ( VITAMINS) 0.8 MG TABS Take 1 tablet by mouth daily 30 tablet 6 ??? [DISCONTINUED] VITAMINS PO Take by mouth. No Known Allergies Problem list, Medication list, Allergies, and Medical/Social/Surgical histories reviewed in [facility] andupdated as appropriate. ROS: OBJECTIVE: BP [...] visit in 1 MONTH Edgar Alfredo MD [facility] documented in this [...] BP completed using cuff size: large Suyapa Rodriugez MLT, CMA documented in this encounter Plan of Treatment Upcoming Encounters Date Type Specialty Care Team Description 12/20/2021 Office Visit Wound Care Luis Camara, [place] [address] [place] [address] (Wo rk) 01/21/2022 Office Visit Gastroenterology Juanis Levi [address] [place] [address] Luis Fernando Miles MD 516 [facility] [place], [place] [address] documented as of this encounter Procedures Procedure [...] Organization Address City/State/[place] [address] [facility] Building [address] [facility] [place] [address] [facility] Drug [...] LAB - URINE ORDERABLES Performing Organization Address City/State/[facility] [place] [address] [facility] Building [address] [facility] documented in this encounter Visit Diagnoses Diagnosis Seasonal allergic rhinitis - Primary Allergic rhinitis, cause unspecified Uncomplicated opioid dependence (H) Opioid type dependence, unspecified documented in this encounter Care Teams Maintenance Painter Relationship Specialty Start Date End Date System, Provider Not In PCP - General Clinic 08/12/14 07/13/16 documented as of this encounter
--- OUTSIDE RECORDS SUMMARY | 2021-12-05 19:29 | XMS_ITS | Encounter Summary ---
:1980 Author Organization [place] Address [address] [facility] [place] [address] Care Team Providers Name Role Phone System, Provider Not In Primary Care Provider Unavailable Reason for Visit Reason Onset Date Comments Medication Request 02/05/2016 Bridge for Subutex 2 mg Encounter Details Date Type Department Care Team Description 02/05/2016 Telephone [facility] Edgar Alfredo, [facility] ication Request Clinic Ashly VÁSQUEZ (Bridge for Subutex [address] [place] mg ) [address] [place] [address] (Wo rk) Social History Tobacco Use Types Packs/Day Years Used Date Smoking Tobacco: Every Day Cigarettes 0.1 10 Smokeless Tobacco: Never Comments: 5 cigarettes a day Alcohol Use Standard Drinks/Week Comments No 0 (1 standard drink = 0.6 oz pure alcoho l) Sex Assigned at Date Recorded Female 01/14/2020 10:57 AM BIOMEDICAL REPAIR TECHNICIAN documented as of this encounter Miscellaneous Notes Telephone Encounter - Edgar Alfredo MD - 02/05/2016 10:02 AM CST Called in bridge Patient notified; left message EDICAL REPAIR TECHNICIAN Telephone Encounter - Mark Roldan - 02/05/2016 9:16 AM CST Incoming call from pt she's need a bridge for Subutex 2 mg until her appt on 02/11. Pt can't make her appt for today she has no ride. Pt contact info: [phone] Ok to leave detailed message. Thank you, Mark Roldan Sql Developer [facility] EDICAL REPAIR TECHNICIAN documented in this encounter Plan of Treatment Upcoming Encounters Date Type Specialty Care Team Description 12/20/2021 Office Visit Wound Care Luis Camara, [place] [address] [place], [place] [address] (Wo rk) 01/21/2022 Office Visit Gastroenterology Juanis Levi [address] [place] [address] Luis Fernando Miles MD 6 [facility] [address] [place], [place] [address] documented as of this encounter Visit Diagnoses Diagnosis Uncomplicated opioid dependence (H) - Pr imary Opioid type dependence, unspecified documented in this encounter Care Teams Bookbinder Chief Relationship Specialty Start Date End Date System, Provider Not In PCP - General Clinic 08/12/14 07/13/16 documented as of this encounter
--- OUTSIDE RECORDS SUMMARY | 2021-12-05 19:29 | XMS_ITS | Encounter Summary ---
:1980 Author Organization Organ Address [address] [place] [address] Care Team Providers Name Role Phone [facility] Primary Care Provide r Luis Fernando Magana Primary Care Provider [facility] Primary Care Provide r Tatyana Haas BIOLOGY TUTOR MECHANICAL ENGINEER Unavailable [phone] Stephani Pina BIOLOGY TUTOR MECHANICAL ENGINEER Unavailable [phone] Tatyana Haas BIOLOGY TUTOR MECHANICAL ENGINEER Unavailable [phone] Stephani Pina BIOLOGY TUTOR MECHANICAL ENGINEER Unavailable [phone] Juanis Levi Primary Care Provider Elsa Yeh RN Unavailable Unavailable Rogelio Treadwell MD Unavailable [phone] Luis Camara DPM Unavailable [phone] Camryn Christina MD Unavailable Sintia Lange PA-C Unavailable Luis Fernando Miles MD Unavailable [phone] Reason for Referral - Closed Specialty Diagnoses / Procedures Referred By Contact Refer red To Contact Diagnoses related condition, unspecified trimester Nidia Vincent [facility] [address] [place] [address] Referral ID Status Reason Start Date Expiration Date Visits Requ ested Visits Authorized [id number] Closed 07/17/2016 07/17/2017 1 1 Encounter Details Date Type Department Care Team Description 07/17/2016 Orders Only [facility] Andreishmael Apri l related Maternal [facility] condition, un specified Medicine Center MEDICAL trimester (Primary Dx) [place] [address] [place], [place] [address] [address] [place], [place] [phone] [address] (Work) [phone] Social History Tobacco Use Types Packs/Day Years Used Date Smoking Tobacco: Every Day Cigarettes 0.1 10 Smokeless Tobacco: Never Comments: 5 cigarettes a day Alcohol Use Standard Drinks/Week Comments No 0 (1 standard drink = 0.6 oz pure alcoho l) Sex Assigned at Date Recorded Female 01/14/2020 10:57 AM MULTIFOCAL LENS INSPECTOR documented as of this encounter Plan of Treatment Upcoming Encounters Date Type Specialty Care Team Description 12/20/2021 Office Visit Wound Care Luis Camara DPM [address] [place], [place] [address] (Wo rk) 01/21/2022 Office Visit Gastroenterology Juanis Levi [address] [place] [phone] Luis Fernando Miles MD [address] [address] Scheduled Referrals Name Type Priority Associated Diagnoses [...] documented as of this encounter Care Teams Youth Program Director Relationship Specialty Start Date End Date [facility], [facility] PCP - General 07/14/[address] [address] Luis Fernando Magana PCP - General Family Practice 12/07/16 01/19/[address] [address] [facility], [facility] PCP - General 01/20/[address] [address] Juanis Levi PCP - General Addiction Medicine 06/29/[address] [place] [address] Tatyana Haas, Assigned PCP 08/02/18 01/29/20 BIOLOGY TUTOR MECHANICAL ENGINEER [facility] [address] [facility] [address] [place] [address] Stephani Pina, Assigned PCP 01/30/20 12/30/20 BIOLOGY TUTOR MECHANICAL ENGINEER [address] [facility] [address] [place] [address] Tatyana Haas, Assigned PCP 12/31/20 02/24/21 BIOLOGY TUTOR MECHANICAL ENGINEER [facility] [address] [facility] [address] [place] [address] Stephani Pina, Assigned PCP 02/25/21 BIOLOGY TUTOR MECHANICAL ENGINEER [address] [facility] [address] [place] [address] Elsa Yeh, Registered Nurse Infectious Diseases 07/25/21 RN Rogelio Treadwell Assigned Musculoskeletal 08/04/21 MD August Provider [address] [place] [address] Luis Camara MD Podiatry 08/16/21 CALVIN Brunett [address] [place] [address] Camryn Christina Assigned Surgical 09/01/21 09/07/21 MD Lexie Provider [address] [facility] [address] [place] [address] Sintia Lange PA-C Assigned Surgical 09/08/21 909 [facility] 4TH [place] [address] Landon Warren MD Gastroenterology 11/21/21 MD Luis Fernando 516 [facility] [address] [place] [address] documented as of this encounter
--- OUTSIDE RECORDS SUMMARY | 2021-12-05 19:29 | XMS_ITS | Encounter Summary ---
:1980 Author Organization [place] Address [address] [facility] [place] [address] Care Team Providers Name Role Phone System, Provider Not In Primary Care Provider Unavailable Encounter Details Date Type Department Care Team Description 06/13/2016 Telephone [facility] Nithya Alfredo MD [place] [address] [place] [address] [place], [place] [address] [address] [place] [address] [phone] Social History Tobacco Use Types Packs/Day Years Used Date Smoking Tobacco: Every Day Cigarettes 0.1 10 Smokeless Tobacco: Never Comments: 5 cigarettes a day Alcohol Use Standard Drinks/Week Comments No 0 (1 standard drink = 0.6 oz pure alcoho l) Sex Assigned at Date Recorded Female 01/14/2020 10:57 AM LOGISTICS SUPPLY OFFICER documented as of this encounter Miscellaneous Notes Telephone Encounter - Edgar Alfredo MD - 06/13/2016 1:57 PM CDT Subutex denied Suboxone film ordered Appointment 06/17/16 documented in this encounter Plan of Treatment Upcoming Encounters Date Type Specialty Care Team Description 12/20/2021 Office Visit Wound Care Luis Camara DPM [address] [place] [address] (Wo rk) 01/21/2022 Office Visit Gastroenterology Juanis Levi [address] [place] [address] Luis Fernando Miles MD 516 [facility] [address] [place] [address] documented as of this encounter Visit Diagnoses Not on filedocumented in this encounter Care Teams Felling Machine Operator Relationship Specialty Start Date End Date System, Provider Not In PCP - General Clinic 08/12/14 07/13/16 documented as of this encounter
--- OUTSIDE RECORDS SUMMARY | 2021-12-05 19:29 | XMS_ITS | Encounter Summary ---
:1980 Author Organization [place] Address [address] [facility] [place] [address] Care Team Providers Name Role Phone System, Provider Not In Primary Care Provider Unavailable Reason for Visit Reason Comments Drug Problem Encounter Details Date Type Department Care Team Description 06/17/2016 Office Visit [facility] Edgar Alfredo Uncomplic ated opioid dependence (H) (Primary Dx); Clinic Ashly Gauthier MD Major depressive disorder, recurrent epi sode, moderate (H) [address] [place] [phone] Social History Tobacco Use Types Packs/Day Years Used Date Smoking Tobacco: Every Day Cigarettes 0.1 10 Smokeless Tobacco: Never Comments: 5 cigarettes a day Alcohol Use Standard Drinks/Week Comments No 0 (1 standard drink = 0.6 oz pure alcoho l) Sex Assigned at Date Recorded Female 01/14/2020 10:57 AM GRISTMILLER documented as of this encounter Last Filed [...] been going to recovery meetings:not at all. [place] Board [employer] Pharmacy Data Base Reviewed: YES; [...] Take 1 tablet by mouth daily ??? Ocnudtxr-Qez-Ec-FA ( VITAMINS) 0.8 MG TABS Take 1 [...] Panel 13 Result Value Ref Range Cannabinoids (63-fwi-8-ysfygte-0-JBO) NDET ng/mL Not Detected Cutoff for a [...] be used for medical purposes only. Order [id number] for confirmation or individual confirmation tests to [facility]. Beta HCG qual IFA urine Result Value Ref Range Beta HCG Qual IFA Urine Negative NEG 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 FOR POLICE CAPTAIN SENIOR USE OF HIGH RISK MEDICATION High Risk [...] MD [facility] documented in this encounter Plan of Treatment Upcoming Encounters Date Type Specialty Care Team Description 12/20/2021 Office Visit Wound Care Luis Camara DPM [address] [place], [place] [address] (Wo rk) 01/21/2022 Office Visit Gastroenterology Juanis Levi [address] [place] [address] Luis Fernando Miles MD [address] [facility] [address] [place] [address] documented as of [...] Organization Address City/State/[place] [address] [facility] Building [address] [facility] (ABNORMAL) Urine Drugs of Abuse Screen Panel 13 (06/17/2016 11:29 AM CDT) Component Value Ref Test Analysis Performed Pathologis t Range Method Time At Signature Cannabinoids Not Detected NDET LAB (89-tcl-8-carboxy- Cutoff for a negative cannabinoid is 50 [...] be used for medical purposes only. Order [id number] for confirmation or individual confirmation tests to [facility]. (A) Specimen Anatomical Collection Method Collection Time Receive d Time (Source) Location / / Volume Laterality Urine specimen 06/17/2016 11:29 7 (specimen) AM CDT 11:30 AM CDT Edgar Alfredo MD LAB - URINE ORDERABLES Performing Organization Address City/State/[facility] [place] [address] [facility] [address] LAB documented in this encounter Visit Diagnoses Diagnosis Uncomplicated opioid dependence (H) - Pr imary Opioid type dependence, unspecified Major depressive disorder, recurrent epi sode, moderate (H) Major depressive disorder, recurrent epi sode, moderate documented in this encounter Care Teams Rv Parts And Service Director Relationship Specialty Start Date End Date System, Provider Not In PCP - General Clinic 08/12/14 07/13/16 documented as of this encounter
--- OUTSIDE RECORDS SUMMARY | 2021-12-05 19:30 | XMS_ITS | Encounter Summary ---
:1980 Author Organization [place] Address [address] [facility] [place] [address] Care Team Providers Name Role Phone System, Provider Not In Primary Care Provider Unavailable Reason for Visit Reason Onset Date Comments Medication Request 07/19/2015 Encounter Details Date Type Department Care Team Description 07/19/2015 Telephone [facility] Edgar Alfredo, [facility] ication Request Clinic Ashly VÁSQUEZ ([phone]) [address] [place] [phone] (Wo rk) Social History Tobacco Use Types Packs/Day Years Used Date Smoking Tobacco: Every Day Cigarettes 0.1 10 Smokeless Tobacco: Never Comments: 5 cigarettes a day Alcohol Use Standard Drinks/Week Comments No 0 (1 standard drink = 0.6 oz pure alcoho l) Sex Assigned at Date Recorded Female 01/14/2020 10:57 AM 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 Please follow up. Pt contact info: [phone] (Ok to leave detailed message, per pt) Thank you, Dora Merchant Bank Compliance Officer [facility] documented in this encounter Plan of Treatment Upcoming Encounters Date Type Specialty Care Team Description 12/20/2021 Office Visit Wound Care Luis Camara DPM [address] [place], [place] [address] (Wo rk) 01/21/2022 Office Visit Gastroenterology Juanis Levi [address] [place] [address] Luis Fernando Miles MD 516 [facility] [address] [place], [place] [address] documented as of this encounter Visit Diagnoses Diagnosis Uncomplicated opioid dependence (H) - Pr imary Opioid type dependence, unspecified documented in this encounter Care Teams Crate Builder Relationship Specialty Start Date End Date System, Provider Not In PCP - General Clinic 08/12/14 07/13/16 documented as of this encounter
--- OUTSIDE RECORDS SUMMARY | 2021-12-05 19:30 | XMS_ITS | Encounter Summary ---
:1980 Author Organization [place] Address [address] [place] [address] Care Team Providers Name Role Phone System, Provider Not In Primary Care Provider Unavailable Reason for Visit Reason Onset Date Comments Recheck Medication Erroneous encounter-disregard 05/23/2015 Encounter Details Date Type Department Care Team Description 05/09/2015 Office Visit [facility] Edgar Alfredo NO SHOW ( Primary Dx); Clinic Ashly Gauthier MD ERRONEOUS ENCOUNTER--DISREGARD [address] [place] [phone] Social History Tobacco Use Types Packs/Day Years Used Date Smoking Tobacco: Every Day Cigarettes 0.1 10 Smokeless Tobacco: Never Comments: 5 cigarettes a day Alcohol Use Standard Drinks/Week Comments No 0 (1 standard drink = 0.6 oz pure alcoho l) Sex Assigned at Date Recorded Female 01/14/2020 10:57 AM QUARTZ ORIENTATOR documented as of this encounter Progress Notes Edgar Alfredo MD - 05/23/2015 10:31 PM CDT This encounter was opened in error. Please disregard. documented in this encounter Plan of Treatment Upcoming Encounters Date Type Specialty Care Team Description 12/20/2021 Office Visit Wound Care Luis Camara, [place] [address] [place] [address] (Wo rk) 01/21/2022 Office Visit Gastroenterology Juanis Levi [address] [place] [phone] Luis Fernando Miles MD 516 [facility] [address] [place], [place] [phone] documented as of this encounter Visit Diagnoses Diagnosis NO SHOW - Primary ERRONEOUS ENCOUNTER--DISREGARD documented in this encounter Care Teams Environmental Engineering Manager Relationship Specialty Start Date End Date System, Provider Not In PCP - General Clinic 08/12/14 07/13/16 documented as of this encounter
--- OUTSIDE RECORDS SUMMARY | 2021-12-05 19:30 | XMS_ITS | Encounter Summary ---
:1980 Author Organization [place] Address [address] [facility] [address] Care Team Providers Name Role Phone System, Provider Not In Primary Care Provider Unavailable Reason for Visit Reason Onset Date Comments Patient Request 09/18/2015 Bridge for Subutex Encounter Details Date Type Department Care Team Description 09/18/2015 Telephone [facility] Edgar Alfredo Pat ient Request ([facility] Thurston MD for Subutex) [address] [place] [phone] (Wo rk) Social History Tobacco Use Types Packs/Day Years Used Date Smoking Tobacco: Every Day Cigarettes 0.1 10 Smokeless Tobacco: Never Comments: 5 cigarettes a day Alcohol Use Standard Drinks/Week Comments No 0 (1 standard drink = 0.6 oz pure alcoho l) Sex Assigned at Date Recorded Female 01/14/2020 10:57 AM BINDER CUTTER documented as of this encounter Miscellaneous Notes [...] be reached at: Home number on file [phone] (home) Best Time: Anytime Can we leave a detailed message on this number? YES Call taken on 09/18/2015 at 3:32 PM by Mark Roldan Thank you, Mark Roldan Cartridge Assembling Machine Adjuster [facility] documented in this encounter Plan of Treatment Upcoming Encounters Date Type Specialty Care Team Description 12/20/2021 Office Visit Wound Care Luis Camara DPM [address] [place], [place] [address] (Wo rk) 01/21/2022 Office Visit Gastroenterology Juanis Levi [address] [place] [phone] Luis Fernando Miles MD [address] [address] documented as of this encounter Visit Diagnoses Diagnosis Uncomplicated opioid dependence (H) - Pr imary Opioid type dependence, unspecified documented in this encounter Care Teams Cloth Bale Header Relationship Specialty Start Date End Date System, Provider Not In PCP - General Clinic 08/12/14 07/13/16 documented as of this encounter
--- OUTSIDE RECORDS SUMMARY | 2021-12-05 19:30 | XMS_ITS | Encounter Summary ---
:1980 Author Organization [place] Address [address] [facility] [place] [address] Care Team Providers Name Role Phone System, Provider Not In Primary Care Provider Unavailable Reason for Visit Reason Onset Date Comments Erroneous encounter-disregard 08/18/2015 Encounter Details Date Type Department Care Team Description 08/18/2015 Office Visit [facility] Edgar Alfredo NO SHOW ( Primary Dx); Clinic Ashly Gauthier MD ERRONEOUS ENCOUNTER--DISREGARD [address] [place] [phone] Social History Tobacco Use Types Packs/Day Years Used Date Smoking Tobacco: Every Day Cigarettes 0.1 10 Smokeless Tobacco: Never Comments: 5 cigarettes a day Alcohol Use Standard Drinks/Week Comments No 0 (1 standard drink = 0.6 oz pure alcoho l) Sex Assigned at Date Recorded Female 01/14/2020 10:57 AM AIR POLLUTION COMPLIANCE INSPECTOR documented as of this encounter Progress Notes Edgar Alfredo MD - 08/18/2015 10:30 PM CDT This encounter was opened in error. Please disregard. documented in this encounter Plan of Treatment Upcoming Encounters Date Type Specialty Care Team Description 12/20/2021 Office Visit Wound Care Luis Camara, [place] [address] [place], [place] [address] (Wo rk) 01/21/2022 Office Visit Gastroenterology Juanis Levi [address] [place] [address] Luis Fernando Miles MD 516 [facility] [address] [place], [place] [address] documented as of this encounter Visit Diagnoses Diagnosis NO SHOW - Primary ERRONEOUS ENCOUNTER--DISREGARD documented in this encounter Care Teams Zipper Ironer Relationship Specialty Start Date End Date System, Provider Not In PCP - General Clinic 08/12/14 07/13/16 documented as of this encounter
--- OUTSIDE RECORDS SUMMARY | 2021-12-05 19:30 | XMS_ITS | Encounter Summary ---
:1980 Author Organization [place] Address [address] [facility] [place] [address] Care Team Providers Name Role Phone System, Provider Not In Primary Care Provider Unavailable Reason for Visit Reason Onset Date Comments Medication Request 08/09/2015 Subutex Encounter Details Date Type Department Care Team Description 08/09/[address] [facility] Edgar Alfredo, [facility] ication Request Clinic Ashly VÁSQUEZ (Subutex) [address] [place] [phone] (Wo rk) Social History Tobacco Use Types Packs/Day Years Used Date Smoking Tobacco: Every Day Cigarettes 0.1 10 Smokeless Tobacco: Never Comments: 5 cigarettes a day Alcohol Use Standard Drinks/Week Comments No 0 (1 standard drink = 0.6 oz pure alcoho l) Sex Assigned at Date Recorded Female 01/14/2020 10:57 AM JD EDWARDS DEVELOPER documented as of this encounter Miscellaneous [...] be reached at: Home number on file [phone] (home) Best Time: Anytime Can we leave a detailed message on this number? YES Call taken on 08/09/2015 at 2:08 PM by Mark Roldan Thank you, Mark Roldan Manager Sterile Processing [facility] documented in this encounter Plan of Treatment Upcoming Encounters Date Type Specialty Care Team Description 12/20/2021 Office Visit Wound Care Luis Camara, [place] [address] [place] [address] (Wo rk) 01/21/2022 Office Visit Gastroenterology Juanis Levi [address] [place] [address] Luis Fernando Miles MD 516 [facility] [address] [place] [address] documented as of this encounter Visit Diagnoses Diagnosis Uncomplicated opioid dependence (H) - Pr imary Opioid type dependence, unspecified documented in this encounter Care Teams Precise Winder Relationship Specialty Start Date End Date System, Provider Not In PCP - General Clinic 08/12/14 07/13/16 documented as of this encounter
--- OUTSIDE RECORDS SUMMARY | 2021-12-05 19:30 | XMS_ITS | Encounter Summary ---
:1980 Author Organization [place] Address [address] [facility] [place] [address] Care Team Providers Name Role Phone System, Provider Not In Primary Care Provider Unavailable Reason for Visit Reason Onset Date Comments Medication Request 07/18/2015 Suboxone Encounter Details Date Type Department Care Team Description 07/18/2015 Telephone [facility], Provider Not Me dication Request Clinic [place] (Suboxone) [address] [place] [address] Social History Tobacco Use Types Packs/Day Years Used Date Smoking Tobacco: Every Day Cigarettes 0.1 10 Smokeless Tobacco: Never Comments: 5 cigarettes a day Alcohol Use Standard Drinks/Week Comments No 0 (1 standard drink = 0.6 oz pure alcoho l) Sex Assigned at Date Recorded Female 01/14/2020 10:[address] documented as of this encounter Miscellaneous Notes Telephone Encounter - Edgar Alfredo MD - 07/20/2015 2:06 PM CDT Bridge of Subutex ordered patient notified Telephone Encounter - Mark Roldan - 07/18/2015 2:43 PM CDT Incoming call pt need a bridge for Suboxone, pt states she is . Please follow up contact info: [phone] Ok to leave detail message Mark Roldan [facility] documented in this encounter Plan of Treatment Upcoming Encounters Date Type Specialty Care Team Description 12/20/2021 Office Visit Wound Care Luis Camara DPM [address] [place] [address] (Wo rk) 01/21/2022 Office Visit Gastroenterology Juanis Levi [address] [place] [phone] Luis Fernando Miles MD 516 [facility] [address] [place], [place] [address] documented as of this encounter Visit Diagnoses Diagnosis Uncomplicated opioid dependence (H) - Pr imary Opioid type dependence, unspecified documented in this encounter Care Teams Coil Winding Supervisor Relationship Specialty Start Date End Date System, Provider Not In PCP - General Clinic 08/12/14 07/13/16 documented as of this encounter
--- OUTSIDE RECORDS SUMMARY | 2021-12-05 19:30 | XMS_ITS | Encounter Summary ---
:1980 Author Organization [place] Address [address] [facility] [place] [address] Care Team Providers Name Role Phone System, Provider Not In Primary Care Provider Unavailable Reason for Visit Reason Comments No Show Encounter Details Date Type Department Care Team Description 07/18/2015 Office Visit [facility] Edgar Alfredo NO SHOW ( Primary Dx) Clinic Ashly Gauthier MD [address] [place] [phone] Social History Tobacco Use Types Packs/Day Years Used Date Smoking Tobacco: Every Day Cigarettes 0.1 10 Smokeless Tobacco: Never Comments: 5 cigarettes a day Alcohol Use Standard Drinks/Week Comments No 0 (1 standard drink = 0.6 oz pure alcoho l) Sex Assigned at Date Recorded Female 01/14/2020 10:57 AM COKE INSPECTOR documented as of this encounter Progress Notes Edgar Alfredo MD - 07/21/2015 12:51 PM CDT This encounter was opened in error. Please disregard. documented in this encounter Plan of Treatment Upcoming Encounters Date Type Specialty Care Team Description 12/20/2021 Office Visit Wound Care Luis Camara DPM [address] [place] [address] (Wo rk) 01/21/2022 Office Visit Gastroenterology Juanis Levi [address] [place] [phone] Luis Fernando Miles MD 516 [facility] [place], [place] [address] documented as of this encounter Visit Diagnoses Diagnosis NO SHOW - Primary documented in this encounter Care Teams Ergonomics Consultant Relationship Specialty Start Date End Date System, Provider Not In PCP - General Clinic 08/12/14 07/13/16 documented as of this encounter
--- OUTSIDE RECORDS SUMMARY | 2021-12-05 19:30 | XMS_ITS | Encounter Summary ---
:1980 Author Organization [place] Address [address] [facility] [address] Care Team Providers Name Role Phone System, Provider Not In Primary Care Provider Unavailable Reason for Visit Reason Onset Date Comments Recheck Medication Erroneous encounter-disregard 05/07/2015 Encounter Details Date Type Department Care Team Description 05/01/2015 Office Visit [facility] Edgar Alfredo ERRONEOUS Clinic Ashly Gauthier MD ENCOUNTER--DISREGARD [address] [place] (Primary Dx) [address] [place] [phone] Social History Tobacco Use Types Packs/Day Years Used Date Smoking Tobacco: Every Day Cigarettes 0.1 10 Smokeless Tobacco: Never Comments: 5 cigarettes a day Alcohol Use Standard Drinks/Week Comments No 0 (1 standard drink = 0.6 oz pure alcoho l) Sex Assigned at Date Recorded Female 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 Please disregard. documented in this encounter Plan of Treatment Upcoming Encounters Date Type Specialty Care Team Description 12/20/2021 Office Visit Wound Care Luis Camara, [place] [address] [place], [place] [address] (Wo rk) 01/21/2022 Office Visit Gastroenterology Juanis Levi [address] [place] [phone] Luis Fernando Miles MD [address] [facility] [address] [place], [place] [address] documented as of this encounter Visit Diagnoses Diagnosis ERRONEOUS ENCOUNTER--DISREGARD - Primary documented in this encounter Care Teams Neck Band Setter Relationship Specialty Start Date End Date System, Provider Not In PCP - General Clinic 08/12/14 07/13/16 documented as of this encounter
--- OUTSIDE RECORDS SUMMARY | 2021-12-05 19:30 | XMS_ITS | Encounter Summary ---
:1980 Author Organization [place] Address [address] [facility] [place] [address] Care Team Providers Name Role Phone System, Provider Not In Primary Care Provider Unavailable Reason for Visit Reason Comments Recheck Medication Encounter Details Date Type Department Care Team Description 06/22/2015 Office Visit [facility] Edgar Alfredo Uncomplic ated opioid Clinic Ashly Gauthier MD dependence (H) (Primary [address] Dx) [address] [place] [phone] Social History Tobacco Use Types Packs/Day Years Used Date Smoking Tobacco: Every Day Cigarettes 0.1 10 Smokeless Tobacco: Never Comments: 5 cigarettes a day Alcohol Use Standard Drinks/Week Comments No 0 (1 standard drink = 0.6 oz pure alcoho l) Sex Assigned at Date Recorded Female 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 Vjfkvhds-Bzd-Hb-FA ( VITAMINS) 0.8 MG TABS Take 1 [...] list, Allergies, and Medical/Social/Surgical histories reviewed in [facility] andupdated as appropriate. ROS: OBJECTIVE: [...] visit in 1 MONTH Edgar Alfredo MD [facility] documented in this encounter Nursing [...] Visit Wound Care Luis Camara DPM [address] [place], [place] [address] (Wo rk) 01/21/2022 Office Visit Gastroenterology Juanis Levi [address] [place] [address] Luis Fernando Miles MD 6 [facility] [address] [place] [address] documented as of this encounter Procedures Procedure [...] Organization Address City/State/[place] [address] [facility] Building [address] [place] [address] [address] [facility] Drug abuse [...] Organization Address City/State/[place] [address] [facility] [address] [facility] documented in this encounter Visit Diagnoses Diagnosis Uncomplicated opioid dependence (H) - Pr imary Opioid type dependence, unspecified documented in this encounter Care Teams Estimator Lumber Relationship Specialty Start Date End Date System, Provider Not In PCP - General Clinic 08/12/14 07/13/16 documented as of this encounter
--- OUTSIDE RECORDS SUMMARY | 2021-12-05 19:30 | XMS_ITS | Encounter Summary ---
:1980 Author Organization [place] Address [address] [place] [address] Care Team Providers Name Role Phone System, Provider Not In Primary Care Provider Unavailable Reason for Visit Reason Onset Date Comments Recheck Medication Erroneous encounter-disregard 05/23/2015 Encounter Details Date Type Department Care Team Description 05/17/2015 Office Visit [facility] Edgar Alfredo dep ressive disorder, recurrent episode, moderate (H) (Primary Dx); Clinic Ashly Gauthier MD Uncomplicated opioid dependence (H); [address] ERRONEOUS ENCOUNTER--DISREGA [address] [place] [phone] Social History Tobacco Use Types Packs/Day Years Used Date Smoking Tobacco: Every Day Cigarettes 0.1 10 Smokeless Tobacco: Never Comments: 5 cigarettes a day Alcohol Use Standard Drinks/Week Comments No 0 (1 standard drink = 0.6 oz pure alcoho l) Sex Assigned at Date Recorded Female 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 documented as of this encounter Last [...] Visit Wound Care Luis Camara DPM [address] [place], [place] [phone] (Wo rk) 01/21/2022 Office Visit Gastroenterology Juanis Levi [address] [place] [address] Luis Fernando Miles MD [address] [id number] documented as of this encounter Procedures Procedure [...] LAB - URINE ORDERABLES Performing Organization Address City/[facility] [place] [address] [facility] Building [address] [...] LAB - URINE ORDERABLES Performing Organization Address City/[facility] [place] [address] [facility] [address] [facility] documented in this encounter Visit Diagnoses Diagnosis Major depressive disorder, recurrent epi sode, moderate (H) - Primary Major depressive disorder, recurrent epi sode, moderate Uncomplicated opioid dependence (H) Opioid type dependence, unspecified ERRONEOUS ENCOUNTER--DISREGARD documented in this encounter Care Teams Shot Hole Driller Relationship Specialty Start Date End Date System, Provider Not In PCP - General Clinic 08/12/14 07/13/16 documented as of this encounter
--- OUTSIDE RECORDS SUMMARY | 2021-12-05 19:30 | XMS_ITS | Encounter Summary ---
:1980 Author Organization [place] Address [address] [facility] [place] [address] Care Team Providers Name Role Phone System, Provider Not In Primary Care Provider Unavailable Reason for Visit Auth/Cert Specialty Diagnoses / Procedures Referred By Contact Refer red To Contact deckhand crab boat Diagnoses Supervision of high-risk Rh Labor And Delive ry [address] [place], [place] [address] Phone: Fax: Referral ID Status Reason Start Date Expiration Date Visits Requ ested Visits Authorized [id number] 1 1 Encounter Details Date Type Department Care Team Description 07/21/2015 Hospital Encounter [facility] Deirdre Gallardo, Birthplace [address] [facility] [place], [place] [address] [facility] [address] [facility] [address] [place] [address] (Wo rk) Social History Tobacco Use Types Packs/Day Years Used Date Smoking Tobacco: Every Day Cigarettes 0.1 10 Smokeless Tobacco: Never Comments: 5 cigarettes a day Alcohol Use Standard Drinks/Week Comments No 0 (1 standard drink = 0.6 oz pure alcoho l) Sex Assigned at Date Recorded Female 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 You don't have to [...] as 0 07/04/2018 (BENADRYL ALLERGY PO) needed levothyroxine (SYNTHROID, Take 1 tablet by 0 01/31/2018 LEVOTHROID) 125 MCG tablet mouth daily buprenorphine (SUBUTEX) 8 Take 02/18 tab 3 32 each 0 201509/28/2015 MG SUBLIndications: times daily Uncomplicated opioid dependence (H) buprenorphine HCl-naloxone Take 1.5 strips 33 Film 0 02/201508/10/2015 HCl (SUBOXONE) 8-2 MG daily filmIndications: Uncomplicated opioid dependence (H) Cholecalciferol (VITAMIN Take 2,000 Units 100 tablet 3 04/1008/24/2015 D) 2000 UNITS by mouth daily. tabletIndications: Vitamin B12 deficiency (non anaemic) Ferrous Sulfate (IRON) 325 Take 1 tablet by 0 08/29/2016 (65 FE) MG tablet mouth 2 times daily OMEPRAZOLE PO Take by mouth 0 11/30/19 17 daily Take 1 tablet by 30 tablet 6 12/10/2012 08/30/19 17 Yrmsfdwv-Hih-Rz-FA mouth daily ( VITAMINS) 0.8 MG TABSIndications: [...] Dr. Verbalized understanding. Allquestions were answered by greeting card writer. Given footprints and photo card. Pt's [...] EM#[id number] Name: STEPHANI MCCORMICK MRN: [id number] Account: [id number] : 1980 Delivery Date: 07/21/2015 Document: [id number] Provider Notification - Lisa Trevino RN - [...] RN - 07/21/2015 6:13 PM CDT 07/21/15 175 Provider Notification Provider Name/Title Dr Trujillo Method [...] Visit Wound Care Luis Camara DPM [address] [place] [address] (Wo rk) 01/21/2022 Office Visit Gastroenterology Juanis Levi [address] [place] [address] Luis Fernando Miles MD [address] [address] Pending Results Name Type Priority [...] CDT) P athologist Signature Cocaine Quant 173 [facility] Comment: Unit: ng/ml Benzoylecgonine Qntu 60,354 [facility] Comment: Unit: ng/ml (Note) Analysis for cocaine and its primary met abolite, benzoylecgonine, is performed by gas chr omatography with mass spectrometry (GC/MS). Results are r eported to the limit of quantitation of the assay. Analysis performed by [employer] [place] [address] Specimen Anatomical Collection Method Collection Time Receive d Time (Source) Location / / Volume Laterality 07/21/2015 10:45 07/22/2015 PM CDT 12:20 AM CDT Ray Trujillo MD LAB - URINE ORDERABLES Performing Organization Address City/[facility]/ZIP Code Phon e Number [facility] [address] [place], [place] [address] [place] [address] [address] [place], [place] [address] 7, [facility] [phone] (ABNORMAL) Drug abuse scrn 7 UR (/) (RH, SH, UR) (07/21/2015 10:45 PM CDT) Component Value Ref Test Analysis Performed At [facility] Progeniq Method Time Signature Amphetamine Qual Negative NEG [place] Urine Cutoff for a negative amphetamine is 500 ng/mL or less. [facility] Cannabinoids Negative NEG [place] [place] Qual Urine Cutoff for a negative cannabinoid is 50 ng/mL or less. [facility] Cocaine Qual Positive, sent NEG [place] Urine to [employer] for [facility] (A) Opiates Negative NEG [facility] [place] Qualitative Cutoff for a negative opiate is 300 ng/mL or less. [facility] Pcp Qual Urine Negative [facility]G [facility] Cutoff for a negative PCP is 25 ng/mL or less. [facility] Specimen Anatomical Collection Method Collection Time Receive d Time (Source) Location / / Volume Laterality Urine specimen URINE SPECIMEN 07/21/2015 10:45 016 (specimen) OBTAINED BY CLEAN PM CDT 11:48 PM C DT CATCH PROCEDURE / Unknown Ray Trujillo MD LAB - URINE ORDERABLES Performing Organization Address City/[facility]/ZIP Code Phon e Number [facility] [address], [place] [address] [place] [address] [address] [place] [id number] 7[facility] [phone] Surgical Path Exam (07/21/2015 7:36 PM CDT) Component Value Ref Test Analysis Performed At [facility] Onepager Range Method Time Signature Copath Report Patient Name: STEPHANI KING MR#: [id number] Specimen #: [id number] Collected: 07/21/2015 Received: 07/24/2015 Reported: 07/31/2015 11:48 [...] requested. ??Because of the clinical history, the medical videographer's office was contacte d 07/31/15 at 11:34AM [...] 15 cm long three vessel cord is driver trainer d at the abdominal wall. ??The cord [...] only. GROSS MEASUREMENTS: Round-rump length: 17 cm Knapp-heel length: 23 cm Head circumference: 16.3 cm [...] identified. No ret roplacental hematoma are identified. ??Boring Machine Feeder sections are submi tted in 3 blocks. MICROSCOPIC: A: No microscopic performed. ??Per clinical request, gross e xternal exam only. B: There are patchy areas of perimembraneous degenerative ch guillermina. ??There is meconium staining. ??The placental villi appear edematous . The placenta shows no evidence of infarction, villitis, or obvio us vasculopathy. CPT Codes: A: 41141-WB, SOH B: 19080-BL8 TESTING LAB LOCATION: [address] ??[address] COLLECTION SITE: Client: [facility] Location: RHOB (R) Specimen Anatomical Collection Method [...] dilated cervix at 8 cm. ??Fetus is long term through the lower uterine segmen t and [...] dilated cervix at 8 cm. Fetus is long term through the lower uterine segmen t and into the dilated cervical canal. Fetus is in breech prese ntation. Cardiac activity measures 188 beats per minute. VERNON BARRY MD Ray Trujillo MD IMG US ORDERABLES Blood component (07/21/2015 6:32 PM CDT) [facility] Method Time Signature Unit Number [id number] [facility] Blood Red Blood [facility] Component Cells [facility] Reduced Division 00 [facility] Status of No longer [facility] Unit available [facility] 07/25/2015 HOSPITAL 0300 Blood Product [id number] [facility] Unit Status RET [facility] Specimen Anatomical Collection Method Collection Time Receive d Time (Source) Location / / Volume Laterality 07/21/2015 6:32 PM 6 6:42 CDT PM CDT Ray Trujillo MD LABORATORY Performing Organization Address City/[facility]/ZIP Code Phon e Number [facility] [address], [place] [address] HOSPITAL [facility] [address] [place], [place] [address] [place] [address] HIV Antigen Antibody Combo (07/21/2015 6:32 PM CDT) Patholo gist Method Time Signature HIV Antigen Nonreactive NR [facility] Antibody HIV-1 p24 Ag & HIV-1/HIV-2 Ab Not Detected [facility] Specimen Anatomical Collection Method Collection Time Receive d Time (Source) Location / / Volume Laterality Blood specimen 07/21/2015 6:32 PM 016 6:42 (specimen) CDT PM CDT Ray Trujillo MD LAB - BLOOD ORDERABLES Performing Organization Address City/[facility]/ZIP Code Phon e Number [facility] [address] [place] [address] [facility] Anti Treponema (07/21/2015 6:32 PM CDT) Analysis Performed At Patho logist Time Signature Treponema Negative NEG [facility] [place] Specimen Anatomical Collection Method Collection Time Receive d Time (Source) Location / / Volume Laterality Blood specimen 07/21/2015 6:32 PM 016 6:42 (specimen) CDT PM CDT Ray Trujillo MD LAB - BLOOD ORDERABLES Performing Organization Address City/State/ZIP Code Phon e Number [facility] [address] [place] [address] [place] Rubella Antibody IgG Quantitative (07/21/2015 6:32 PM CDT) Analysis Performed At Patho logist Time Signature Rubella Antibody 7 IU/mL [facility] IgG Quantitative [facility] Comment: Negative Reference Range: ?? Unvaccinated [...] Phon e Number [facility] [address] [place] [address] [place] (ABNORMAL) Hemoglobin (07/21/2015 6:32 PM CDT) athologist Signature Hemoglobin 10.7 (L) 11.7 - 15.7 [facility] [place] g/dL [facility] Specimen Anatomical Collection Method Collection Time Receive d Time (Source) Location / / Volume Laterality Blood specimen 07/21/2015 6:32 PM 016 6:42 (specimen) CDT PM CDT Ray Trujillo MD LAB - BLOOD ORDERABLES Performing Organization Address City/[facility]/ZIP Code Phon e Number [facility] [address], [place] [address] [phone] [facility] [address] [phone] ABO/Rh type and screen (07/21/2015 6:32 PM CDT) Patholo gist Method Time Signature Units Ordered 1 [facility] ABO B [facility] RH(D) Pos [facility] Antibody Neg [facility] Screen [facility] Test Valid [facility] Only At [facility] Specimen 07/24/2015 [place] [facility] Specimen Anatomical Collection Method Collection Time Receive d Time (Source) Location / / Volume Laterality Blood specimen 07/21/2015 6:32 PM 016 6:42 (specimen) CDT PM CDT Ray Trujillo MD LAB - BLOOD BANK TEST ORDER Performing Organization Address City/State/ZIP Code Phon e Number [facility] [address], [place] [address] [facility] [address] [place] [phone] documented in this encounter Visit Diagnoses Diagnosis [...] bolus documented in this encounter Care Teams Research Epidemiologist Relationship Specialty Start Date End Date System, Provider Not In PCP - General Clinic 08/12/14 07/13/16 documented as of this encounter
--- OUTSIDE RECORDS SUMMARY | 2021-12-05 19:30 | XMS_ITS | Encounter Summary ---
:1980 Author Organization [place] Address [address] [facility] [place] [address] Care Team Providers Name Role Phone System, Provider Not In Primary Care Provider Unavailable Reason for Visit Reason Onset Date Comments Erroneous encounter-disregard 07/21/2015 Encounter Details Date Type Department Care Team Description 07/21/2015 Telephone [facility] Edgar Alfredo, [facility] Ashly VÁSQUEZ encounter-disregard [address] [place] [address] (Wo rk) Social History Tobacco Use Types Packs/Day Years Used Date Smoking Tobacco: Every Day Cigarettes 0.1 10 Smokeless Tobacco: Never Comments: 5 cigarettes a day Alcohol Use Standard Drinks/Week Comments No 0 (1 standard drink = 0.6 oz pure alcoho l) Sex Assigned at Date Recorded Female 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 documented in this encounter Plan of Treatment Upcoming Encounters Date Type Specialty Care Team Description 12/20/2021 Office Visit Wound Care Luis Camara, DPCamryn [address] [place], [place] [address] (Wo rk) 01/21/2022 Office Visit Gastroenterology Juanis Levi [address] [place] [phone] Luis Fernando Miles MD [address] [facility] [address] [place], [place] [phone] documented as of this encounter Visit Diagnoses Not on filedocumented in this encounter Care Teams Academic Affairs Director Relationship Specialty Start Date End Date System, Provider Not In PCP - General Clinic 08/12/14 07/13/16 documented as of this encounter
--- OUTSIDE RECORDS SUMMARY | 2021-12-05 19:30 | XMS_ITS | Encounter Summary ---
:1980 Author Organization [place] Address [address] [facility] [place] [address] Care Team Providers Name Role Phone System, Provider Not In Primary Care Provider Unavailable Reason for Visit Reason Onset Date Comments Recheck Medication Erroneous encounter-disregard 06/13/2015 Encounter Details Date Type Department Care Team Description 06/12/[address] 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 Please disregard. documented in this encounter Plan of Treatment Upcoming Encounters Date Type Specialty Care Team Description 12/20/2021 Office Visit Wound Care Luis Camara, [place] [address] [place] [address] (Wo rk) 01/21/2022 Office Visit Gastroenterology Juanis Levi [address] [place] [phone] Luis Fernando Miles MD [address] [facility] [address] [place], [place] [phone] documented as of this encounter Visit Diagnoses Diagnosis NO SHOW - Primary ERRONEOUS ENCOUNTER--DISREGARD documented in this encounter Care Teams Brazer Controlled Atmospheric Furnace Relationship Specialty Start Date End Date System, Provider Not In PCP - General Clinic 08/12/14 07/13/16 documented as of this encounter
--- OUTSIDE RECORDS SUMMARY | 2021-12-05 19:30 | XMS_ITS | Encounter Summary ---
:1980 Author Organization [place] Address [address] [facility] [place] [address] Care Team Providers Name Role Phone System, Provider Not In Primary Care Provider Unavailable Reason for Visit Reason Comments Recheck Medication Encounter Details Date Type Department Care Team Description 03/28/2015 Office Visit [facility] Edgra Alfredo Uncomplic ated opioid Clinic Ashly Gauthier MD dependence (H) (Primary [address]) [address] [place] [phone] Social History Tobacco Use Types Packs/Day Years Used Date Smoking Tobacco: Every Day Cigarettes 0.1 10 Smokeless Tobacco: Never Comments: 5 cigarettes a day Alcohol Use Standard Drinks/Week Comments No 0 (1 standard drink = 0.6 oz pure alcoho l) Sex Assigned at Date Recorded Female 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 Fkfldaoh-Bqs-Ps-FA ( VITAMINS) 0.8 MG TABS Take 1 tablet by mouth daily 30 tablet 6 ??? Cholecalciferol (VITAMIN D) 2000 UNITS tablet Take 2,000 Units by mouth daily. 100 tablet 3 ??? [DISCONTINUED] VITAMINS PO Take by mouth. No Known Allergies Problem list, Medication list, Allergies, and Medical/Social/Surgical histories reviewed in [facility] andupdated as appropriate. ROS: OBJECTIVE: BP 122/66 [...] visit in 1 MONTH Edgar Alfredo MD [facility] R SAFETY INSTRUCTOR documented in this encounter Nursing Notes Suyapa [...] cuff size: large Suyapa Rodriguez MLT, CMA R SAFETY INSTRUCTOR documented in this encounter Plan of Treatment Upcoming Encounters Date Type Specialty Care Team Description 12/20/2021 Office Visit Wound Care Luis Camara DPM [address] [place] [address] (Wo rk) 01/21/2022 Office Visit Gastroenterology Juanis Levi [address] [place] [address] Luis Fernando Miles MD [address] [facility] [address] [place] [address] documented as of this encounter Procedures Procedure Name Priority Date/Time Associated Comments Diagnosis BUPRENORPHINE QUAL Routine 03/28/2015 11:04 Resul ts for this URINE AM WATER SAFETY INSTRUCTOR procedure are i n the results section. DRUG ABUSE SCREEN (NL, Routine 03/28/2015 11:04 R esults for this RW) AM WATER SAFETY INSTRUCTOR procedure are i n the results section. documented in this encounter Results Buprenorphine Qual Urine (03/28/2015 11:04 AM WATER SAFETY INSTRUCTOR) Patholo gist Method Time Signature Buprenorphine Negative [facility] LAB Qual Urine Specimen Anatomical Collection Method Collection Time Receive d Time (Source) Location / / Volume Laterality Urine specimen 03/28/2015 11:04 6 (specimen) AM WATER SAFETY INSTRUCTOR 11:09 AM WATER SAFETY INSTRUCTOR Edgar Alfredo MD LAB - URINE ORDERABLES Performing Organization Address City/State/[place] [address] [facility] [address] [facility] LAB Drug abuse screen (NL, RW) (03/28/2015 11:04 AM WATER SAFETY INSTRUCTOR) Component Value Ref Test Analysis Performed Pathologis [...] Urine specimen 03/28/2015 11:04 6 (specimen) AM WATER SAFETY INSTRUCTOR 11:09 AM WATER SAFETY INSTRUCTOR Edgar Alfredo MD LAB - URINE ORDERABLES Performing Organization Address City/State/[place] [address] [facility] [address] LAB documented in this encounter Visit Diagnoses Diagnosis Uncomplicated opioid dependence (H) - Pr imary Opioid type dependence, unspecified documented in this encounter Care Teams Electric Trucker Relationship Specialty Start Date End Date System, Provider Not In PCP - General Clinic 08/12/14 07/13/16 documented as of this encounter
--- OUTSIDE RECORDS SUMMARY | 2021-12-05 19:30 | XMS_ITS | Encounter Summary ---
:1980 Author Organization [place] Address [address] [facility] [place] [address] Care Team Providers Name Role Phone System, Provider Not In Primary Care Provider Unavailable Reason for Visit Reason Onset Date Comments Refill Request 08/14/2015 Subutex 8mg Encounter Details Date Type Department Care Team Description 08/14/2015 Telephone [facility] Edgar Alfredo, Ref ill Request (Subutex Clinic [place] 8mg) [address] [place] [address] [place] [phone] (Wo rk) Social History Tobacco Use Types Packs/Day Years Used Date Smoking Tobacco: Every Day Cigarettes 0.1 10 Smokeless Tobacco: Never Comments: 5 cigarettes a day Alcohol Use Standard Drinks/Week Comments No 0 (1 standard drink = 0.6 oz pure alcoho l) Sex Assigned at Date Recorded Female 01/14/2020 10:57 AM 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 documented as of this encounter Miscellaneous [...] Suyapa Murray MLT, CMA Telephone Encounter - Edgar Alfredo MD - [...] 0 [place] Office Visit with [facility] or [facility] prescribing provider: 06/22/15 Next 5 appointments (look out 90 days) Sep 12, 2015 10:45 AM Return Visit with Edgar Alfredo MD [facility] ([facility]) [address] [facility] [phone] Thank you, Mark Roldan Saw Straightener [facility] documented in this encounter Plan of Treatment Upcoming Encounters Date Type Specialty Care Team Description 12/20/2021 Office Visit Wound Care Luis Camara, [place] [address] [place] [address] (Wo rk) 01/21/2022 Office Visit Gastroenterology Juanis Levi [address] [place] [address] Luis Fernando Miles MD [address] [facility] [address] [place] [address] documented as of this encounter Visit Diagnoses Diagnosis Uncomplicated opioid dependence (H) - Pr imary Opioid type dependence, unspecified documented in this encounter Care Teams Principal Bioinformatics Specialist Relationship Specialty Start Date End Date System, Provider Not In PCP - General Clinic 08/12/14 07/13/16 documented as of this encounter
--- OUTSIDE RECORDS SUMMARY | 2021-12-05 19:30 | XMS_ITS | Encounter Summary ---
:1980 Author Organization [place] Address [address] [place] [address] Care Team Providers Name Role Phone System, Provider Not In Primary Care Provider Unavailable Reason for Visit Reason Onset Date Comments Erroneous encounter-disregard 05/09/2015 Encounter Details Date Type Department Care Team Description 05/09/2015 Telephone [facility] Edgar Alfredo, [facility] Ashly VÁSQUEZ encounter-disregard [address] [place] [phone] (Wo rk) Social History Tobacco Use Types Packs/Day Years Used Date Smoking Tobacco: Every Day Cigarettes 0.1 10 Smokeless Tobacco: Never Comments: 5 cigarettes a day Alcohol Use Standard Drinks/Week Comments No 0 (1 standard drink = 0.6 oz pure alcoho l) Sex Assigned at Date Recorded Female 01/14/2020 10:57 AM FUR JOINER documented as of this encounter Plan of Treatment Upcoming Encounters Date Type Specialty Care Team Description 12/20/2021 Office Visit Wound Care Luis Camara DPM [address] [place], [place] [phone] (Wo rk) 01/21/2022 Office Visit Gastroenterology Juanis Levi [address] [place] [address] Luis Fernando Miles MD [address] [place] [address] documented as of this encounter Visit Diagnoses Not on filedocumented in this encounter Care Teams Tail Worker Relationship Specialty Start Date End Date System, Provider Not In PCP - General Clinic 08/12/14 07/13/16 documented as of this encounter
--- OUTSIDE RECORDS SUMMARY | 2021-12-05 19:30 | XMS_ITS | Encounter Summary ---
:1980 Author Organization [place] Address [address] [facility] [address] Care Team Providers Name Role Phone System, Provider Not In Primary Care Provider Unavailable Reason for Visit Reason Onset Date Comments Medication Question 06/14/2015 Subx Bridge Encounter Details Date Type Department Care Team Description 06/14/2015 Telephone [facility] Edgar Alfredo, [facility] ication Question Clinic Ashly VÁSQUEZ (Subx Bridge) [address] [place] [address] [place] [phone] (Wo rk) Social History Tobacco Use Types Packs/Day Years Used Date Smoking Tobacco: Every Day Cigarettes 0.1 10 Smokeless Tobacco: Never Comments: 5 cigarettes a day Alcohol Use Standard Drinks/Week Comments No 0 (1 standard drink = 0.6 oz pure alcoho l) Sex Assigned at Date Recorded Female 01/14/2020 10:57 AM HOSPITALITY JOB TITLES documented as of this encounter Miscellaneous Notes Telephone Encounter - Edgar Alfredo MD - 06/14/2015 12:48 PM CDT Spoke to patient Bridge called in Telephone Encounter - Dora Merchant - 06/14/2015 12:25 PM CDT Incoming call from pt requesting a bridge for subx until next appt on 06/21. Please follow up. Pt contact info: [phone] Script can be sent to [facility] Thank you, Dora Merchant [facility] Telephone Encounter - Dora Merchant - 06/14/2015 11:41 AM CDT Incoming call from pt, documented in this encounter Plan of Treatment Upcoming Encounters Date Type Specialty Care Team Description 12/20/2021 Office Visit Wound Care Luis Camara, [place] [address] [place], [place] [address] (Wo rk) 01/21/2022 Office Visit Gastroenterology Juanis Levi [address] [place] [phone] Luis Fernando Miles MD [address] [address] documented as of this encounter Visit Diagnoses Diagnosis Uncomplicated opioid dependence (H) - Pr imary Opioid type dependence, unspecified documented in this encounter Care Teams Grain Thresher Relationship Specialty Start Date End Date System, Provider Not In PCP - General Clinic 08/12/14 07/13/16 documented as of this encounter
--- OUTSIDE RECORDS SUMMARY | 2021-12-05 19:30 | XMS_ITS | Encounter Summary ---
:1980 Author Organization [place] Address [address] [place] [address] Care Team Providers Name Role Phone System, Provider Not In Primary Care Provider Unavailable Reason for Visit Reason Onset Date Comments Prior Auth - Medication 08/24/2015 subutex 2 mg tab Encounter Details Date Type Department Care Team Description 08/24/2015 Telephone [facility] Edgar Alfredo Pri or Auth - Medication Clinic Ashly VÁSQUEZ (subutex 2 mg tab) [address] [place] [place] [phone] (Wo rk) Social History Tobacco Use Types Packs/Day Years Used Date Smoking Tobacco: Every Day Cigarettes 0.1 10 Smokeless Tobacco: Never Comments: 5 cigarettes a day Alcohol Use Standard Drinks/Week Comments No 0 (1 standard drink = 0.6 oz pure alcoho l) Sex Assigned at Date Recorded Female 01/14/2020 10:57 AM SPRINKLER 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 faxed to pharmacy Telephone Encounter - Suyapa Rodriguez CMA - 08/24/2015 4:01 PM CDT PA request faxed to [facility], marked URGENT documented in this encounter Plan of Treatment Upcoming Encounters Date Type Specialty Care Team Description 12/20/2021 Office Visit Wound Care Luis Camara DPM [address] [place], [place] [phone] (Wo rk) 01/21/2022 Office Visit Gastroenterology Juansi Levi [address] [place] [address] Luis Fernando Miles MD [address] [facility] [address] [place], [place] [phone] documented as of this encounter Visit Diagnoses Not on filedocumented in this encounter Care Teams Rock Crusher Operator Relationship Specialty Start Date End Date System, Provider Not In PCP - General Clinic 08/12/14 07/13/16 documented as of this encounter
--- OUTSIDE RECORDS SUMMARY | 2021-12-05 19:30 | XMS_ITS | Encounter Summary ---
:1980 Author Organization [place] Address [address] [facility] [place] [address] Care Team Providers Name Role Phone System, Provider Not In Primary Care Provider Unavailable Reason for Visit Reason Onset Date Comments Medication Request 05/09/2015 Encounter Details Date Type Department Care Team Description 05/09/2015 Telephone [facility] Edgar Workman Ma, Medication Request [place] [address] [place] [phone] (Reinaldo rk) Social History Tobacco Use Types Packs/Day Years Used Date Smoking Tobacco: Every Day Cigarettes 0.1 10 Smokeless Tobacco: Never Comments: 5 cigarettes a day Alcohol Use Standard Drinks/Week Comments No 0 (1 standard drink = 0.6 oz pure alcoho l) Sex Assigned at Date Recorded Female 01/14/2020 10:57 AM STOCK PREPARER documented as of this encounter Miscellaneous Notes [...] appt 05/16 please call pt back at [phone] Vivian Spence, [facility] Cathead Worker Telephone Encounter - Edgar Workman MD - [...] Wound Care Luis Camara, [place] [address] [place] [address] (Wo rk) 01/21/2022 Office Visit Gastroenterology Juanis Levi [address] [place] [phone] Luis Fernando Miles MD 516 [facility] [address] [place], [place] [address] documented as of this encounter Visit Diagnoses Diagnosis Uncomplicated opioid dependence (H) - Pr imary Opioid type dependence, unspecified documented in this encounter Care Teams Consulting Practice Director Relationship Specialty Start Date End Date System, Provider Not In PCP - General Clinic 08/12/14 07/13/16 documented as of this encounter
--- OUTSIDE RECORDS SUMMARY | 2021-12-05 19:30 | XMS_ITS | Encounter Summary ---
:1980 Author Organization [place] Address [address] [facility] [place] [address] Care Team Providers Name Role Phone System, Provider Not In Primary Care Provider Unavailable Encounter Details Date Type Department Care Team Description 04/24/2015 Telephone [facility] Nithya Alfredo MD [place] [address] [place] [address] [place], [place] [address] [phone] [place] [phone] Social History Tobacco Use Types Packs/Day Years Used Date Smoking Tobacco: Every Day Cigarettes 0.1 10 Smokeless Tobacco: Never Comments: 5 cigarettes a day Alcohol Use Standard Drinks/Week Comments No 0 (1 standard drink = 0.6 oz pure alcoho l) Sex Assigned at Date Recorded Female 01/14/2020 10:57 AM GLASSBLOWER documented as of this encounter Miscellaneous Notes Addendum Note - Suyapa Murray CMA - 04/24/2015 1:41 PM GLASSBLOWER Addended by: SUYAPA MURRAY on: 04/24/2015 01:41 PM Modules accepted: Medications SBLOWER Telephone Encounter - Edgar Alfredo MD - 04/24/2015 12:31 PM CST Bridge ordered SBLOWER Telephone Encounter - Vivian Spence CMA - 04/24/2015 12:19 PM CST Incoming call from pt requesting a bridge in Subutex pt scheduled 04/30 please send refill to [address] Vivian Spence, [facility] Bed Spring Maker .3s SBLOWER documented in this encounter Plan of Treatment Upcoming Encounters Date Type Specialty Care Team Description 12/20/2021 Office Visit Wound Care Luis Camara DPM [address] [place] [address] (Wo rk) 01/21/2022 Office Visit Gastroenterology Juanis Levi [address] [place] [address] Luis Fernando Miles MD 516 [facility] [address] [place] [address] documented as of this encounter Visit Diagnoses Diagnosis Uncomplicated opioid dependence (H) - Pr imary Opioid type dependence, unspecified documented in this encounter Care Teams Assistant Store Leader Relationship Specialty Start Date End Date System, Provider Not In PCP - General Clinic 08/12/14 07/13/16 documented as of this encounter
--- OUTSIDE RECORDS SUMMARY | 2021-12-05 19:30 | XMS_ITS | Encounter Summary ---
:1980 Author Organization [place] Address [address] [facility] [place] [address] Care Team Providers Name Role Phone System, Provider Not In Primary Care Provider Unavailable Reason for Visit Reason Onset Date Comments Recheck Medication Erroneous encounter-disregard 04/28/2015 Encounter Details Date Type Department Care Team Description 04/24/2015 Office Visit [facility] Edgar Alfredo NO SHOW ( Primary Dx); Clinic Ashly Gauthier MD ERRONEOUS ENCOUNTER--DISREGARD [address] [place] [address] [place] [phone] Social History Tobacco Use Types Packs/Day Years Used Date Smoking Tobacco: Every Day Cigarettes 0.1 10 Smokeless Tobacco: Never Comments: 5 cigarettes a day Alcohol Use Standard Drinks/Week Comments No 0 (1 standard drink = 0.6 oz pure alcoho l) Sex Assigned at Date Recorded Female 01/14/2020 10:57 AM SOLE CONDITIONER documented as of this encounter Progress Notes Edgar Alfredo MD - 04/28/2015 10:05 PM CST This encounter was opened in error. Please disregard. CONDITIONER documented in this encounter Plan of Treatment Upcoming Encounters Date Type Specialty Care Team Description 12/20/2021 Office Visit Wound Care Luis Camara, [place] [address] [place], [place] [phone] (Wo rk) 01/21/2022 Office Visit Gastroenterology Juanis Levi [address] [place] [phone] Luis Fernando Miles MD 516 [facility] [address] [place], [place] [address] documented as of this encounter Visit Diagnoses Diagnosis NO SHOW - Primary ERRONEOUS ENCOUNTER--DISREGARD documented in this encounter Care Teams Dairy Technician Relationship Specialty Start Date End Date System, Provider Not In PCP - General Clinic 08/12/14 07/13/16 documented as of this encounter
--- OUTSIDE RECORDS SUMMARY | 2021-12-05 19:30 | XMS_ITS | Encounter Summary ---
:1980 Author Organization [place] Address [address] [facility] [place] [address] Care Team Providers Name Role Phone System, Provider Not In Primary Care Provider Unavailable Reason for Visit Reason Onset Date Comments Prior Auth - Medication 05/17/2015 subutex 8 mg Encounter Details Date Type Department Care Team Description 05/17/2015 Telephone [facility] Edgar Alfredo Pri or Auth - Medication Clinic Ashly VÁSQUEZ (subutex 8 mg) [address] [place] [address] [place] [phone] (Wo rk) Social History Tobacco Use Types Packs/Day Years Used Date Smoking Tobacco: Every Day Cigarettes 0.1 10 Smokeless Tobacco: Never Comments: 5 cigarettes a day Alcohol Use Standard Drinks/Week Comments No 0 (1 standard drink = 0.6 oz pure alcoho l) Sex Assigned at Date Recorded Female 01/14/2020 10:57 AM 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 Faxed to pharmacy. Telephone [...] 1:48 PM CDT PA request faxed to [facility], marked URGENT. documented in this encounter Plan of Treatment Upcoming Encounters Date Type Specialty Care Team Description 12/20/2021 Office Visit Wound Care Luis Camara DPM [address] [place] [address] (Wo rk) 01/21/2022 Office Visit Gastroenterology Juanis Levi [address] [place] [phone] Luis Fernando Miles MD [address] [facility] [address] [place], [place] [address] documented as of this encounter Visit Diagnoses Diagnosis Uncomplicated opioid dependence (H) - Pr imary Opioid type dependence, unspecified documented in this encounter Care Teams Research Recruiter Relationship Specialty Start Date End Date System, Provider Not In PCP - General Clinic 08/12/14 07/13/16 documented as of this encounter
--- OUTSIDE RECORDS SUMMARY | 2021-12-05 19:30 | XMS_ITS | Encounter Summary ---
:1980 Author Organization [place] Address [address] [place] [address] Care Team Providers Name Role Phone System, Provider Not In Primary Care Provider Unavailable Reason for Visit Reason Comments Recheck Medication Encounter Details Date Type Department Care Team Description 03/02/2015 Office Visit [facility] Edgar Alfredo Uncomplic ated opioid Clinic Ashly Gauthier MD dependence (H) (Primary [address] Dx) [address] [place] [address] [place] [phone] Social History Tobacco Use Types Packs/Day Years Used Date Smoking Tobacco: Every Day Cigarettes 0.1 10 Smokeless Tobacco: Never Comments: 5 cigarettes a day Alcohol Use Standard Drinks/Week Comments No 0 (1 standard drink = 0.6 oz pure alcoho l) Sex Assigned at Date Recorded Female 01/14/2020 10:57 AM CUSTOM WOOD STAIR BUILDER documented as of this encounter Last Filed Vital Signs Vital Sign Reading Time Taken Comments Blood Pressure 133/87 03/02/2015 3:15 PM CUSTOM WOOD STAIR BUILDER Pulse 86 03/02/2015 3:15 PM CUSTOM WOOD STAIR BUILDER Temperature - - Respiratory Rate - - [...] health issues: Suboxone followup Child discharged from [facility] now at home On subutex: [...] Take 1 tablet by mouth daily ??? Gvodpsnn-Bse-Jd-FA ( VITAMINS) 0.8 MG TABS Take 1 [...] NECESSARY Edgar Alfredo M.D. Edgar Alfredo MD [facility] OM WOOD STAIR BUILDER documented in this encounter Nursing Notes Suyapa [...] using cuff size: catalino Rodriguez MLT, CMA OM WOOD STAIR BUILDER documented in this encounter Plan of Treatment Upcoming Encounters Date Type Specialty Care Team Description 12/20/2021 Office Visit Wound Care Luis Camara DPM [address] [place], [place] [address] (Wo rk) 01/21/2022 Office Visit Gastroenterology Juanis Levi [address] [place] [address] Luis Fernando Miles MD 6 [facility] [address] [place] [address] documented as of this encounter Procedures Procedure Name Priority Date/Time Associated Diagnosis Comme nts BUPRENORPHINE QUAL Routine 03/02/2015 2:59 Uncomplicated opioi d Results for this URINE PM CUSTOM WOOD STAIR BUILDER dependence (H) procedure are in the results section. DRUG ABUSE SCREEN Routine 03/02/2015 2:59 Uncomplicated opioid Results for this (NL, RW) PM CUSTOM WOOD STAIR BUILDER dependence (H) procedure are in the results section. documented in this encounter Results Buprenorphine Qual Urine (03/02/2015 2:59 PM CUSTOM WOOD STAIR BUILDER) Patholo gist Method Time Signature Buprenorphine Positive LAB Qual Urine Specimen Anatomical Collection Method Collection Time Receive d Time (Source) Location / / Volume Laterality Urine specimen 03/02/2015 2:59 PM 016 3:05 (specimen) CUSTOM WOOD STAIR BUILDER PM CUSTOM WOOD STAIR BUILDER Edgar Alfredo MD LAB - URINE ORDERABLES Performing Organization Address City/State/[place] [address] [facility] Building [address] [facility] LAB Drug abuse screen (NL, RW) (03/02/2015 2:59 PM CUSTOM WOOD STAIR BUILDER) Component Value Ref Test Analysis Performed Pathologis [...] specimen 03/02/2015 2:59 PM 016 3:05 (specimen) CUSTOM WOOD STAIR BUILDER PM CUSTOM WOOD STAIR BUILDER Edgar Alfredo MD LAB - URINE ORDERABLES Performing Organization Address City/State/ZIP Code Phon e Number [place], [place] [id number] [place] [address] [facility]IMARY CARE Building [address] [address] LAB documented in this encounter Visit Diagnoses Diagnosis Uncomplicated opioid dependence (H) - Pr imary Opioid type dependence, unspecified documented in this encounter Care Teams Potato Spotter Relationship Specialty Start Date End Date System, Provider Not In PCP - General Clinic 08/12/14 07/13/16 documented as of this encounter
--- OUTSIDE RECORDS SUMMARY | 2021-12-05 19:30 | XMS_ITS | Encounter Summary ---
:1980 Author Organization [place] Address [address] [facility] [place] [address] Care Team Providers Name Role Phone System, Provider Not In Primary Care Provider Unavailable Reason for Visit Reason Onset Date Comments No Show Erroneous encounter-disregard 08/14/2015 Encounter Details Date Type Department Care Team Description 08/14/2015 Office Visit [facility] Edgar Alfredo NO SHOW ( Primary Dx); Clinic Ashly Gauthier MD ERRONEOUS ENCOUNTER--DISREGARD [address] [place] [address] [place] [phone] Social History Tobacco Use Types Packs/Day Years Used Date Smoking Tobacco: Every Day Cigarettes 0.1 10 Smokeless Tobacco: Never Comments: 5 cigarettes a day Alcohol Use Standard Drinks/Week Comments No 0 (1 standard drink = 0.6 oz pure alcoho l) Sex Assigned at Date Recorded Female 01/14/2020 10:57 AM ORGANIC LAB WORKER documented as of this encounter Progress Notes Edgar Alfredo MD - 08/14/2015 3:18 PM CDT This encounter was opened in error. Please disregard. documented in this encounter Plan of Treatment Upcoming Encounters Date Type Specialty Care Team Description 12/20/2021 Office Visit Wound Care Luis Camara, [place] [address] [place], [place] [address] (Wo rk) 01/21/2022 Office Visit Gastroenterology Juanis Levi [address] [place] [phone] Luis Fernando Miles MD 6 [facility] [address] [place], [place] [address] documented as of this encounter Visit Diagnoses Diagnosis NO SHOW - Primary ERRONEOUS ENCOUNTER--DISREGARD documented in this encounter Care Teams Watch Inspector Final Movement Relationship Specialty Start Date End Date System, Provider Not In PCP - General Clinic 08/12/14 07/13/16 documented as of this encounter
--- OUTSIDE RECORDS SUMMARY | 2021-12-05 19:30 | XMS_ITS | Encounter Summary ---
:1980 Author Organization [place] Address [address] [facility] [place] [address] Care Team Providers Name Role Phone System, Provider Not In Primary Care Provider Unavailable Reason for Visit Reason Onset Date Comments Refill Request 06/12/2015 Bridge needed for giraldo bx Encounter Details Date Type Department Care Team Description 06/12/2015 Telephone [facility] Edgar Alfredo, Ref ill Request ([facility] Dolores MD needed for subx ) [address] [place] [address] [place] [phone] (Wo rk) Social History Tobacco Use Types Packs/Day Years Used Date Smoking Tobacco: Every Day Cigarettes 0.1 10 Smokeless Tobacco: Never Comments: 5 cigarettes a day Alcohol Use Standard Drinks/Week Comments No 0 (1 standard drink = 0.6 oz pure alcoho l) Sex Assigned at Date Recorded Female 01/14/2020 10:57 AM TOY ASSEMBLER WOOD documented as of this encounter Miscellaneous Notes [...] 06/22/15. Please follow up. Pt contact info: [phone] Thank you, Dora Merchant [facility] documented in this encounter Plan of Treatment Upcoming Encounters Date Type Specialty Care Team Description 12/20/2021 Office Visit Wound Care Luis Camara DPM [address] [place] [address] (Wo rk) 01/21/2022 Office Visit Gastroenterology Juanis Levi [address] [place] [address] Luis Fernando Miles MD 516 [facility] [address] [place] [address] documented as of this encounter Visit Diagnoses Diagnosis Uncomplicated opioid dependence (H) - Pr imary Opioid type dependence, unspecified documented in this encounter Care Teams Family Law Specialist Relationship Specialty Start Date End Date System, Provider Not In PCP - General Clinic 08/12/14 07/13/16 documented as of this encounter
--- OUTSIDE RECORDS SUMMARY | 2021-12-05 19:30 | XMS_ITS | Encounter Summary ---
:1980 Author Organization [place] Address [address] [place] [address] Care Team Providers Name Role Phone System, Provider Not In Primary Care Provider Unavailable Reason for Visit Reason Onset Date Comments Medication Request 05/02/2015 Encounter Details Date Type Department Care Team Description 05/02/2015 Telephone [facility] Edgar Alfredo Ma, Medication Request [place] [address] [place] [address] [place] [phone] (Reinaldo rk) Social History Tobacco Use Types Packs/Day Years Used Date Smoking Tobacco: Every Day Cigarettes 0.1 10 Smokeless Tobacco: Never Comments: 5 cigarettes a day Alcohol Use Standard Drinks/Week Comments No 0 (1 standard drink = 0.6 oz pure alcoho l) Sex Assigned at Date Recorded Female 01/14/2020 10:57 AM MEDICAL PRACTICE ADMINISTRATOR documented as of this encounter Miscellaneous [...] until next scheduled appt please send to [facility] pharmacy Vivian Spence [facility] Detail Drafter documented in this encounter Plan of Treatment Upcoming Encounters Date Type Specialty Care Team Description 12/20/2021 Office Visit Wound Care Luis Camara DPM [address] [place], [place] [address] (Wo rk) 01/21/2022 Office Visit Gastroenterology Juanis Levi [address] [place] [phone] Luis Fernando Miles MD 516 [facility] [address] [place] [address] documented as of this encounter Visit Diagnoses Diagnosis Uncomplicated opioid dependence (H) - Pr imary Opioid type dependence, unspecified documented in this encounter Care Teams Well Driller Helper Relationship Specialty Start Date End Date System, Provider Not In PCP - General Clinic 08/12/14 07/13/16 documented as of this encounter
--- OUTSIDE RECORDS SUMMARY | 2021-12-05 19:30 | XMS_ITS | Encounter Summary ---
:1980 Author Organization [place] Address [address] [facility] [place] [address] Care Team Providers Name Role Phone System, Provider Not In Primary Care Provider Unavailable Reason for Visit Reason Onset Date Comments Recheck Medication Erroneous encounter-disregard 05/07/2015 Encounter Details Date Type Department Care Team Description 05/02/2015 Office Visit [facility] Edgar Alfredo ERRONEOUS Clinic Ashly Gauthier MD ENCOUNTER--DISREGARD [address] [place] (Primary Dx) [address] [place] [phone] Social History Tobacco Use Types Packs/Day Years Used Date Smoking Tobacco: Every Day Cigarettes 0.1 10 Smokeless Tobacco: Never Comments: 5 cigarettes a day Alcohol Use Standard Drinks/Week Comments No 0 (1 standard drink = 0.6 oz pure alcoho l) Sex Assigned at Date Recorded Female 01/14/2020 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 Please disregard. documented in this encounter Plan of Treatment Upcoming Encounters Date Type Specialty Care Team Description 12/20/2021 Office Visit Wound Care Luis Camara, [place] [address] [place], [place] [address] (Wo rk) 01/21/2022 Office Visit Gastroenterology Juanis Levi [address] [place] [phone] Luis Fernando Miles MD 516 [facility] [address] [place], [place] [address] documented as of this encounter Visit Diagnoses Diagnosis ERRONEOUS ENCOUNTER--DISREGARD - Primary documented in this encounter Care Teams Grain Merchandiser Relationship Specialty Start Date End Date System, Provider Not In PCP - General Clinic 08/12/14 07/13/16 documented as of this encounter
--- OUTSIDE RECORDS SUMMARY | 2021-12-05 19:30 | XMS_ITS | Encounter Summary ---
:1980 Author Organization [place] Address [address] [facility] [place] [address] Care Team Providers Name Role Phone System, Provider Not In Primary Care Provider Unavailable Reason for Visit Reason Onset Date Comments Refill Request 08/22/2015 Emergency Appointmen t Needed Today (SUBOXONE) Encounter Details Date Type Department Care Team Description 08/22/[address] 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 Patient will like to be seen today. Staff informed patient call will be routed to and his MA. Patient understood. Lupe Lantigua MA documented in this encounter Plan of Treatment Upcoming Encounters Date Type Specialty Care Team Description 12/20/2021 Office Visit Wound Care Luis Camara DPM [address] [place] [address] (Wo rk) 01/21/2022 Office Visit Gastroenterology Juanis Levi [address] [place] [phone] Luis Fernando Miles MD 6 [facility] [address] [place] [address] documented as of this encounter Visit Diagnoses Not on filedocumented in this encounter Care Teams Behavioral Medical Director Relationship Specialty Start Date End Date System, Provider Not In PCP - General Clinic 08/12/14 07/13/16 documented as of this encounter
--- OUTSIDE RECORDS SUMMARY | 2021-12-05 19:30 | XMS_ITS | Encounter Summary ---
:1980 Author Organization [place] Address [address] [facility] [place] [address] Care Team Providers Name Role Phone System, Provider Not In Primary Care Provider Unavailable Reason for Visit Reason Onset Date Comments No Show Erroneous encounter-disregard 08/21/2015 Encounter Details Date Type Department Care Team Description 08/14/2015 Office Visit [facility] Edgar Alfredo NO SHOW ( Primary Dx); Clinic Ashly Gauthier MD ERRONEOUS ENCOUNTER--DISREGARD [address] [place] [address] [place] [address] Social History Tobacco Use Types Packs/Day Years Used Date Smoking Tobacco: Every Day Cigarettes 0.1 10 Smokeless Tobacco: Never Comments: 5 cigarettes a day Alcohol Use Standard Drinks/Week Comments No 0 (1 standard drink = 0.6 oz pure alcoho l) Sex Assigned at Date Recorded Female 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 Please disregard. documented in this encounter Plan of Treatment Upcoming Encounters Date Type Specialty Care Team Description 12/20/2021 Office Visit Wound Care Luis Camara, [place] [address] [place], [place] [address] (Wo rk) 01/21/2022 Office Visit Gastroenterology Juanis Levi [address] [place] [phone] Luis Fernando Miles MD 6 [facility] [address] [place], [place] [address] documented as of this encounter Visit Diagnoses Diagnosis NO SHOW - Primary ERRONEOUS ENCOUNTER--DISREGARD documented in this encounter Care Teams Cooker Sulfate Relationship Specialty Start Date End Date System, Provider Not In PCP - General Clinic 08/12/14 07/13/16 documented as of this encounter
--- OUTSIDE RECORDS SUMMARY | 2021-12-05 19:30 | XMS_ITS | Encounter Summary ---
:1980 Author Organization [place] Address [address] [place] [address] Care Team Providers Name Role Phone System, Provider Not In Primary Care Provider Unavailable Reason for Visit Reason Onset Date Comments Recheck Medication Erroneous encounter-disregard 09/25/2015 Encounter Details Date Type Department Care Team Description 09/18/2015 Office Visit [facility] Edgar Alfredo NO SHOW ( Primary Dx); Clinic Ashly Gauthier MD ERRONEOUS ENCOUNTER--DISREGARD [address] [place] [address] [place] [phone] Social History Tobacco Use Types Packs/Day Years Used Date Smoking Tobacco: Every Day Cigarettes 0.1 10 Smokeless Tobacco: Never Comments: 5 cigarettes a day Alcohol Use Standard Drinks/Week Comments No 0 (1 standard drink = 0.6 oz pure alcoho l) Sex Assigned at Date Recorded Female 01/14/2020 10:57 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 Please disregard. documented in this encounter Plan of Treatment Upcoming Encounters Date Type Specialty Care Team Description 12/20/2021 Office Visit Wound Care Luis Camara, [place] [address] [place], [place] [address] (Wo rk) 01/21/2022 Office Visit Gastroenterology Juanis Levi [address] [place] [phone] Luis Fernando Miles MD [address] [facility] [address] [place], [place] [address] documented as of this encounter Visit Diagnoses Diagnosis NO SHOW - Primary ERRONEOUS ENCOUNTER--DISREGARD documented in this encounter Care Teams Fire Extinguisher Mechanic Relationship Specialty Start Date End Date System, Provider Not In PCP - General Clinic 08/12/14 07/13/16 documented as of this encounter
--- OUTSIDE RECORDS SUMMARY | 2021-12-05 19:30 | XMS_ITS | Encounter Summary ---
:1980 Author Organization [place] Address [address] [place] [address] Care Team Providers Name Role Phone System, Provider Not In Primary Care Provider Unavailable Reason for Visit Reason Comments Recheck Medication Encounter Details Date Type Department Care Team Description 08/24/2015 Office Visit [facility] Edgar Alfredo dep ressive disorder, recurrent episode, moderate (H) (Primary Dx); Clinic Ashly Gauthier MD Uncomplicated opioid dependence (H) [address] [place] [address] [place] [address] Social History Tobacco Use Types Packs/Day Years Used Date Smoking Tobacco: Every Day Cigarettes 0.1 10 Smokeless Tobacco: Never Comments: 5 cigarettes a day Alcohol Use Standard Drinks/Week Comments No 0 (1 standard drink = 0.6 oz pure alcoho l) Sex Assigned at Date Recorded Female 01/14/2020 10:57 AM 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 Rlturmzx-Ayr-Yg-FA ( VITAMINS) 0.8 MG TABS Take 1 tablet by mouth daily 30 tablet 6 ??? [DISCONTINUED] VITAMINS PO Take by mouth. No Known Allergies Problem list, Medication list, Allergies, and Medical/Social/Surgical histories [facility] andupdated as appropriate. ROS: OBJECTIVE: [...] visit in 1 MONTH Edgar Alfredo MD [facility] documented in this encounter Nursing [...] Care Luis Camara DPM [address] [place], [place] [address] (Wo rk) 01/21/2022 Office Visit Gastroenterology Juanis Levi [address] [place] [address] Luis Fernando Miles MD [address] [facility] [address] [place], [place] [address] documented as of this encounter Procedures Procedure [...] Organization Address City/State/[place] [address] [facility] Building [address] [...] Organization Address City/State/[place] [address] [facility] [address] [facility] documented in this encounter Visit Diagnoses Diagnosis Major depressive disorder, recurrent epi sode, moderate (H) - Primary Major depressive disorder, recurrent epi sode, moderate Uncomplicated opioid dependence (H) Opioid type dependence, unspecified documented in this encounter Care Teams Geothermal Field Technician Relationship Specialty Start Date End Date System, Provider Not In PCP - General Clinic 08/12/14 07/13/16 documented as of this encounter
--- OUTSIDE RECORDS SUMMARY | 2021-12-05 19:31 | XMS_ITS | Encounter Summary ---
:1980 Author Organization [place] Address [address] [facility] [place] [address] Care Team Providers Name Role Phone System, Provider Not In Primary Care Provider Unavailable Reason for Referral - Closed Specialty Diagnoses / Procedures Referred By Contact Refer red To Contact Diagnoses Other known or suspected abnormality, not elsewhere classified, affecting management of mother, antepartum condition or complication Sintia Rasheed RN Referral ID Status Reason Start Date Expiration Date Visits Requ ested Visits Authorized [id number] Closed 08/12/2014 02/08/2015 1 1 Encounter Details Date Type Department Care Team Description 08/12/2014 Orders Only [facility] Sintia Rasheed , incidental Maternal GENARO Ghotra (Primary Dx) [facility] [address] [place], [place] [address] Social History Tobacco Use Types Packs/Day Years Used Date Smoking Tobacco: Every Day Cigarettes 0.1 10 Smokeless Tobacco: Never Comments: 5 cigarettes a day Alcohol Use Standard Drinks/Week Comments No 0 (1 standard drink = 0.6 oz pure alcoho l) Sex Assigned at Date Recorded Female 01/14/2020 10:57 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 documented as of this encounter Plan of Treatment Upcoming Encounters Date Type Specialty Care Team Description 12/20/2021 Office Visit Wound Care Luis Camara DPM [address] [place], [place] [phone] (Wo rk) 01/21/2022 Office Visit Gastroenterology Juanis Levi [address] [place] [address] Luis Fernando Miles MD [address] [place], [place] [address] Scheduled Referrals Name Type Priority Associated Diagnoses Order S chedule [facility] Office Visit Referral Routine , incidental We ekly for 1 Occurrences starting 2014 until 08/13/2015 documented as of this encounter Results [facility] US Comprehensive Single (08/24/2014 11:29 AM CDT) [...] MCCORMICK Study Date: 08/24 10:55am Pat. NO: [id number] Referring ??: KATY ROCHE Site: [facility] Senior Warehouse Clerk: Carlos Gordon RDMS : 1980 Age: 35 [...] (HC-AC-FL) Head / Face / Neck Biometry: Independent Living Advisor ?7.9 ?mm ? Nasal bone ?7.2 ?mm [...] this patient and /or family members. Approximate gjhn-wj-nbds time was 30 min utes. Procedure Note Breanna Coleman MD - 09/10/2016Format ting of this note might be different from the original. Comprehensive Pat. Name:Elizabeth MCCORMICK Date:08/25/19 10:55am Pat. NO: [id number] MD:YURIDIA ROCHE [facility]Carlos Gordon RDMS :1980Age:35 INDICATION Congenital Heart Defect. [...] 5.6 mm Humerus 38.6 mm 23w 5d [facility] Weight Calculation: EFW 589 g 31% 23w 0d Gildardo EFW (lb,oz) 1 lb 5 oz Calculated by [facility]ora (HC-AC-FL) Head / Face / Neck Biometry: Independent Living Advisor 7.9 mm Nasal bone 7.2 mm Amniotic [...] this patient and /or family members. Approximate ubvr-tp-jmjy time was 30 min utes. IMPRESSION Single intrauterine at 24 1/7 weeks gestation by 11 week ultrasound. Sonographic biometry agrees with gestational age predicted by prior ultrasound. 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 The remainder of anatomy was adequately visualized and appeared normal. Breanna Coleman MD [facility] US ORDERABLES Echo Complete-Peds Cardiology (08/24/2014 10:16 AM CDT) Anatomical Region Laterality Modality Ultrasound Specimen (Source) Anatomical Location Collection Method / Collectio n Time Received Time / Laterality Volume Narrative 08/25/2014 1:37 PM CDT PEDIATRIC ECHOCARDIOGRAM [facility]? s [facility] ? Gestational Age: 24 weeks Due Date: 11/18 ?? : Delivery Site: [facility] ??Tech: [email or web address] Diagnosis: Heart defect ? [...] ?? The plan is to deliver at [facility]. ??Expecting a full term delivery [...] the systemic pulmonary venous connections. Ezra Rodríguez MD-[phone] ? Kyung Sheets MD-Pager [phone] Carlton Olivera MD-Pager ??[phone] or [phone] ? Blane Seay MD-Pager [phone] ? Carina Ruiz MD-Pager [phone] Tk Spain MD-Pager # [phone] Loretta Roberts MD Pager [phone] Brice Lloyd MD-Pager [phone] Breanna Coleman MD CV PEDS ECHO ORDERABLES documented in this encounter Visit Diagnoses Diagnosis , incidental - Primary state, incidental , incidental state, incidental , incidental state, incidental documented in this encounter Care Teams Floor Covering Printer Relationship Specialty Start Date End Date System, Provider Not In PCP - General Clinic 08/12/14 07/13/16 documented as of this encounter
--- OUTSIDE RECORDS SUMMARY | 2021-12-05 19:31 | XMS_ITS | Encounter Summary ---
:1980 Author Organization [place] Address [address] [facility] [place] [address] Care Team Providers Name Role Phone System, Provider Not In Primary Care Provider Unavailable Reason for Visit Reason Onset Date Comments Ultrasound Comp US-heart defect Ultrasound echo-heart def ect Consult MFM-heart defect Erroneous encounter-disregard 08/25/2014 Encounter Details Date Type Department Care Team Description 08/24/2014 Office Visit [facility] Jared, Breanna Other kno wn or suspected abnormality, not elsewhere classified, affecting management of mother, antepartum condition or complication (Primary Dx); Maternal MD Julian ERRONEOUS ENCOUNTER--DISREGARD [facility] [address] [place], [place] [address] [address] [place], [place] [address] [phone] Social History Tobacco Use Types Packs/Day Years Used Date Smoking Tobacco: Every Day Cigarettes 0.1 10 Smokeless Tobacco: Never Comments: 5 cigarettes a day Alcohol Use Standard Drinks/Week Comments No 0 (1 standard drink = 0.6 oz pure alcoho l) Sex Assigned at Date Recorded Female 01/14/2020 10:57 AM BOOK SORTER documented as of this encounter Progress Notes Winsome Allen RN - 08/25/2014 1:49 PM CDT This encounter was opened in error. Please disregard. documented in this encounter Plan of Treatment Upcoming Encounters Date Type Specialty Care Team Description 12/20/2021 Office Visit Wound Care Luis Camara DPM [address] [facility] [place] [address] (Wo rk) 01/21/2022 Office Visit Gastroenterology Juanis Levi [address] [place] [address] Luis Fernando Miles MD [address] [facility] [address] [place] [address] documented as of this encounter Visit Diagnoses Diagnosis Other known or suspected abnormali ty, not elsewhere classified, affecting management of mother, antepartum conditi on or complication - Primary ERRONEOUS ENCOUNTER--DISREGARD documented in this encounter Care Teams Social Service Worker Relationship Specialty Start Date End Date System, Provider Not In PCP - General Clinic 08/12/14 07/13/16 documented as of this encounter
--- OUTSIDE RECORDS SUMMARY | 2021-12-05 19:31 | XMS_ITS | Encounter Summary ---
:1980 Author Organization [place] Address [address] [place] [address] Care Team Providers Name Role Phone System, Provider Not In Primary Care Provider Unavailable Reason for Visit Reason Comments Recheck Medication Encounter Details Date Type Department Care Team Description 12/26/2014 Office Visit [facility] Edgar Alfredoplic ated opioid Clinic Ashly Gauthier MD dependence (H) (Primary [address] Dx) [address] [place] [address] [place] [phone] Social History Tobacco Use Types Packs/Day Years Used Date Smoking Tobacco: Every Day Cigarettes 0.1 10 Smokeless Tobacco: Never Comments: 5 cigarettes a day Alcohol Use Standard Drinks/Week Comments No 0 (1 standard drink = 0.6 oz pure alcoho l) Sex Assigned at Date Recorded Female 01/14/2020 10:57 AM CLEANER AND POLISHER documented as of this encounter Last Filed Vital Signs Vital Sign Reading Time Taken Comments Blood Pressure 124/73 12/26/2014 11:19 AM CLEANER AND POLISHER Pulse 94 12/26/2014 11:19 AM CLEANER AND POLISHER Temperature - - Respiratory Rate - - [...] Take 1 tablet by mouth daily ??? Aeaiggdp-Wni-Yw-FA ( VITAMINS) 0.8 MG TABS Take 1 [...] list, Allergies, and Medical/Social/Surgical histories reviewed in [facility] andupdated as appropriate. ROS: OBJECTIVE: [...] Alfredo MD, MD [facility] NER AND POLISHER documented in this encounter Nursing Notes Suyapa [...] using cuff size: catalino Rodriguez MLT, CMA NER AND POLISHER documented in this encounter Plan of Treatment Upcoming Encounters Date Type Specialty Care Team Description 12/20/2021 Office Visit Wound Care Luis Camara DPM [address] [place], [place] [address] (Wo rk) 01/21/2022 Office Visit Gastroenterology Juanis Levi [address] [place] [phone] Luis Fernando Miles MD 6 [facility] [address] [place] [address] documented as of this encounter Procedures Procedure Name Priority Date/Time Associated Diagnosis Comme nts BUPRENORPHINE QUAL Routine 12/26/2014 11:11 Uncomplicated opio id Results for this URINE AM CLEANER AND POLISHER dependence (H) procedure are in the results section. DRUG ABUSE SCREEN Routine 12/26/2014 11:11 Uncomplicated opioi d Results for this (NL, RW) AM CLEANER AND POLISHER dependence (H) procedure are in the results section. documented in this encounter Results Buprenorphine Qual Urine (12/26/2014 11:11 AM CLEANER AND POLISHER) Patholo gist Method Time Signature Buprenorphine Negative [facility] Qual Urine Specimen Anatomical Collection Method Collection Time Receive d Time (Source) Location / / Volume Laterality Urine specimen 12/26/2014 11:11 5 (specimen) AM CLEANER AND POLISHER 11:16 AM CLEANER AND POLISHER Edgar Alfredo MD LAB - URINE ORDERABLES Performing Organization Address City/State/[place] [address] [facility] Building [address] [facility] Drug abuse screen (NL, RW) (12/26/2014 11:11 AM CLEANER AND POLISHER) Component Value Ref Test Analysis Performed Pathologis [...] Urine specimen 12/26/2014 11:11 5 (specimen) AM CLEANER AND POLISHER 11:16 AM CLEANER AND POLISHER Edgar Alfredo MD LAB - URINE ORDERABLES Performing Organization Address City/State/[place] [address] [facility] [address] [address] [facility] documented in this encounter Visit Diagnoses Diagnosis Uncomplicated opioid dependence (H) - Pr imary Opioid type dependence, unspecified documented in this encounter Care Teams Route Service Representative Relationship Specialty Start Date End Date System, Provider Not In PCP - General Clinic 08/12/14 07/13/16 documented as of this encounter
--- OUTSIDE RECORDS SUMMARY | 2021-12-05 19:31 | XMS_ITS | Encounter Summary ---
:1980 Author Organization [place] Address [address] [facility] [place] [address] Care Team Providers Name Role Phone System, Provider Not In Primary Care Provider Unavailable Reason for Referral - Closed Specialty Diagnoses / Procedures Referred By Contact Refer red To Contact Diagnoses Unspecified complication of , antepartum Breanna Coleman MD [address] [place], [place] [address] Referral ID Status Reason Start Date Expiration Date Visits Requ ested Visits Authorized [id number] Closed 08/24/2014 08/24/2015 1 1 Reason for Visit Reason Comments Ultrasound Encounter Details Date Type Department Care Team Description 08/24/2014 Orders Only [facility] Breanna Coleman Unspecifi ed complication of , antepartum (Primary Dx); Maternal MD Julian Abnormal heart rate or rhythm Medicine Center [address] [place], [place] [address] [address] [place], [place] [address] [phone] Social History Tobacco Use Types Packs/Day Years Used Date Smoking Tobacco: Every Day Cigarettes 0.1 10 Smokeless Tobacco: Never Comments: 5 cigarettes a day Alcohol Use Standard Drinks/Week Comments No 0 (1 standard drink = 0.6 oz pure alcoho l) Sex Assigned at Date Recorded Female 01/14/2020 10:57 AM HEAVY CLEANER documented as of this encounter Progress Notes Janeen Ruiz MD - 08/24/2014 3:24 PM CDT Cardiology Consult Date of Visit: 08/24/2014 Gestational Age: 24 weeks Due Date: 12/13/2014 Delivery: [facility] Dear I had the opportunity to meet [...] weeks of GA. Plan to deliver ar [facility], expecting a full term delivery. Obtain cardiology consult, transthoracic Echo after . Start PGE 1 immediatley at . Thank you for allowing me to participate in Stephani's care. Feel free to contact me with questions. Rloy-su-gorx counseling time was [address] Janeen Ruiz Powder And Primer Canning Leader Director, Cardiology [facility] documented in this encounter Plan of Treatment Upcoming Encounters Date Type Specialty Care Team Description 12/20/2021 Office Visit Wound Care Luis Camara DPM [address] [place] [address] (Wo rk) 01/21/2022 Office Visit Gastroenterology Juanis Levi [address] [place] [address] Luis Fernando Miles MD 6 [facility] [address] [place] [address] Scheduled Referrals Name Type Priority Associated Diagnoses Order S erendira [facility] Genetic Counseling Referral Routine Unspecified 1 Occ urrences starting complication of 08/24/2014 u ntil , antepartum 2015 documented as of this encounter Visit Diagnoses Diagnosis Unspecified complication of , a ntepartum - Primary Abnormal heart rate or rhythm Abnormality in heart rate or rhyth m, unspecified as to time of onset documented in this encounter Care Teams Dehairer Relationship Specialty Start Date End Date System, Provider Not In PCP - General Clinic 08/12/14 07/13/16 documented as of this encounter
--- OUTSIDE RECORDS SUMMARY | 2021-12-05 19:31 | XMS_ITS | Encounter Summary ---
:1980 Author Organization [place] Address [address] [facility] [place] [address] Care Team Providers Name Role Phone System, Provider Not In Primary Care Provider Unavailable Reason for Visit Reason Onset Date Comments Care 10/06/2014 Encounter Details Date Type Department Care Team Description 10/06/2014 Telephone [facility] Maternal Breanna Worthington MD [facility] [address] [place] [address] [place], [place] [address] [phone] Social History Tobacco Use Types Packs/Day Years Used Date Smoking Tobacco: Every Day Cigarettes 0.1 10 Smokeless Tobacco: Never Comments: 5 cigarettes a day Alcohol Use Standard Drinks/Week Comments No 0 (1 standard drink = 0.6 oz pure alcoho l) Sex Assigned at Date Recorded Female 01/14/2020 10:57 AM POWER ELECTRONICS ENGINEER documented as of this encounter Miscellaneous Notes Telephone Encounter - Breanna Coleman MD - 10/06/2014 3:47 PM CDT Patient has missed several appointments at [facility] in the last few weeks. Called patient [...] Visit Wound Care Luis Camara DPM [address] [place] [address] (Wo rk) 01/21/2022 Office Visit Gastroenterology Juanis Levi [address] [place] [address] Luis Fernando Miles MD [address] [facility] [address] [place], [place] [address] documented as of this encounter Visit Diagnoses Not on filedocumented in this encounter Care Teams Senior Construction Manager Relationship Specialty Start Date End Date System, Provider Not In PCP - General Clinic 08/12/14 07/13/16 documented as of this encounter
--- OUTSIDE RECORDS SUMMARY | 2021-12-05 19:31 | XMS_ITS | Encounter Summary ---
:1980 Author Organization [place] Address [facility] [place] [address] Care Team Providers Name Role Phone System, Provider Not In Primary Care Provider Unavailable Reason for Visit Reason Comments Ultrasound ECHO, comp u/s: possib le heart anomaly Consult MFM consult: possible heart anomaly Encounter Details Date Type Department Care Team Description 08/22/2014 PRE VISIT [facility] Sintia Rasheed ( ECHO, Maternal Medicine GENARO Ghotra comp u/s: possible [facility] heart anomaly); [address] Consult ([facility] consult: [place], [place] [address] possible heart [phone] anomaly) Social History Tobacco Use Types Packs/Day Years Used Date Smoking Tobacco: Every Day Cigarettes 0.1 10 Smokeless Tobacco: Never Comments: 5 cigarettes a day Alcohol Use Standard Drinks/Week Comments No 0 (1 standard drink = 0.6 oz pure alcoho l) Sex Assigned at Date Recorded Female 01/14/2020 10:57 AM COMMUNICATIONS EXECUTIVE documented as of this encounter Plan of Treatment Upcoming Encounters Date Type Specialty Care Team Description 12/20/2021 Office Visit Wound Care Luis Camara DPM [address] [place] [address] (Wo rk) 01/21/2022 Office Visit Gastroenterology Juanis Levi [address] [place] [phone] Luis Fernando Miles MD [address] [address] documented as of this encounter Visit Diagnoses Not on filedocumented in this encounter Care Teams Cable Tool Driller Relationship Specialty Start Date End Date System, Provider Not In PCP - General Clinic 08/12/14 07/13/16 documented as of this encounter
--- OUTSIDE RECORDS SUMMARY | 2021-12-05 19:31 | XMS_ITS | Encounter Summary ---
:1980 Author Organization [place] Address [address] [facility] [place] [address] Care Team Providers Name Role Phone System, [...] Expiration Date Visits Requ ested Visits Authorized [id number] Closed 08/12/2014 02/08/2015 1 1 Encounter Details Date Type Department Care Team Description 08/24/[address] [facility] Breanna Coleman con genital heart Maternal MD Julian defect, antepartum Medicine Center [address] [place], [place] [address] [address] [place] [phone] Social History Tobacco Use Types Packs/Day Years Used Date Smoking Tobacco: Every Day Cigarettes 0.1 10 Smokeless Tobacco: Never Comments: 5 cigarettes a day Alcohol Use Standard Drinks/Week Comments No 0 (1 standard drink = 0.6 oz pure alcoho l) Sex Assigned at Date Recorded Female 01/14/2020 10:57 AM MANAGER TRANSPORT documented as of this encounter Progress Notes Breanna Coleman MD - 08/26/2014 3:38 PM CDT The patient was seen for an ultrasound and consultation in the Maternal- Medicine Center at [facility] today. The following is the summary of [...] that delivery will need to be at [facility] where NICU and Pediatric [...] of this patient and/or family members. Approximate szop-oy-djlc time was 30 minutes. Breanna Coleman MD Maternal- Medicine & Clinical Genetics August 24, 2014 documented in this encounter Nursing Notes Sintia Rasheed RN - 08/24/2014 3:27 PM CDT Pt seen for comp u/s, ECHO, and MFM consult. Pediatric Cardiology and Dr Coleman met with patient. Plan for patient to return to [facility] in 4 weeks for f/u comp u/s, 1st OBV, and f/u ECHO. Will schedule pt for NICU consult at that appointment. documented in this encounter Plan of Treatment Upcoming Encounters Date Type Specialty Care Team Description 12/20/2021 Office Visit Wound Care Luis Camara, [place] [address] [place], [place] [phone] (Wo rk) 01/21/2022 Office Visit Gastroenterology Juanis Levi [address] [place] [address] Luis Fernando Miles MD 516 [facility] [address] [place] [address] documented as of this encounter Visit Diagnoses Diagnosis congenital heart defect, antepartu m Other known or suspected abnormali ty, not elsewhere classified, affecting management of mother, antepartum conditi on or complication documented in this encounter Care Teams Senior Major Gifts Officer Relationship Specialty Start Date End Date System, Provider Not In PCP - General Clinic 08/12/14 07/13/16 documented as of this encounter
--- OUTSIDE RECORDS SUMMARY | 2021-12-05 19:31 | XMS_ITS | Encounter Summary ---
:1980 Author Organization [place] Address [address] [facility] [address] Care Team Providers Name Role Phone System, Provider Not In Primary Care Provider Unavailable Reason for Visit Reason Comments Recheck Medication Encounter Details Date Type Department Care Team Description 01/19/2015 Office Visit [facility] Edgar Alfredoplic ated opioid dependence (H) (Primary Dx); Clinic Ashly Gauthier MD Major depressive disorder, recurrent epi sode, moderate (H) [address] [place] [phone] Social History Tobacco Use Types Packs/Day Years Used Date Smoking Tobacco: Every Day Cigarettes 0.1 10 Smokeless Tobacco: Never Comments: 5 cigarettes a day Alcohol Use Standard Drinks/Week Comments No 0 (1 standard drink = 0.6 oz pure alcoho l) Sex Assigned at Date Recorded Female 01/14/2020 10:57 AM SUPERVISOR CURING ROOM documented as of this encounter Last Filed Vital Signs Vital Sign Reading Time Taken Comments Blood Pressure 132/85 01/19/2015 10:35 AM SUPERVISOR CURING ROOM Pulse 112 01/19/2015 10:35 AM SUPERVISOR CURING ROOM Temperature - - Respiratory Rate - - [...] Take 1 tablet by mouth daily ??? Ykzihmgr-Hgj-Wq-FA ( VITAMINS) 0.8 MG TABS Take 1 tablet by mouth daily 30 tablet 6 ??? Cholecalciferol (VITAMIN D) 2000 UNITS tablet Take 2,000 Units by mouth daily. 100 tablet 3 ??? [DISCONTINUED] VITAMINS PO Take by mouth. No Known Allergies Problem list, Medication list, Allergies, and Medical/Social/Surgical histories reviewed in [facility] andupdated as appropriate. ROS: OBJECTIVE: BP 132/85 [...] in 5 WEEKS Edgar Alfredo MD, MD [facility] RVISOR CURING ROOM documented in this encounter Nursing Notes Suyapa Rodriguez, TEA TASTER - 01/19/2015 10:36 AM CST Chief Complaint Patient presents with ??? Recheck Medication Initial BP 132/85 mmHg Pulse 112 Estimated body mass index is 30.96 kg/(m^2) as calculated from the following: Height as of 01/07/13: 5' 5.5 (1.664 m). Weight as of 07/28/14: 189 lb (85.73 kg). BP completed using cuff size: large Suyapa Rodriguez MLT, CMA RVISOR CURING ROOM documented in this encounter Plan of Treatment Upcoming Encounters Date Type Specialty Care Team Description 12/20/2021 Office Visit Wound Care [place] Luislaurel Burnett, [place] [address] [place] [address] (Wo rk) 01/21/2022 Office Visit Gastroenterology Juanis Levi [address] [place] [address] Luis Fernando Miles MD 516 [facility] [place] [address] documented as of this encounter Procedures Procedure Name Priority Date/Time Associated Diagnosis Comme nts BUPRENORPHINE QUAL Routine 01/19/2015 10:26 Uncomplicated opio id Results for this URINE AM SUPERVISOR CURING ROOM dependence (H) procedure are in the results section. DRUG ABUSE SCREEN Routine 01/19/2015 10:26 Uncomplicated opioi d Results for this (NL, RW) AM SUPERVISOR CURING ROOM dependence (H) procedure are in the results section. documented in this encounter Results Buprenorphine Qual Urine (01/19/2015 10:26 AM SUPERVISOR CURING ROOM) Patholo gist Method Time Signature Buprenorphine Positive RJ LAB Qual Urine Specimen Anatomical Collection Method Collection Time Receive d Time (Source) Location / / Volume Laterality Urine specimen 01/19/2015 10:26 5 (specimen) AM SUPERVISOR CURING ROOM 10:32 AM SUPERVISOR CURING ROOM Edgar Alfredo MD LAB - URINE ORDERABLES Performing Organization Address City/State/[place] [address] [facility] Building [address] LAB Drug abuse screen (NL, RW) (01/19/2015 10:26 AM SUPERVISOR CURING ROOM) Component Value Ref Test Analysis Performed Pathologis [...] Urine specimen 01/19/2015 10:26 5 (specimen) AM SUPERVISOR CURING ROOM 10:32 AM SUPERVISOR CURING ROOM Edgra Alfredo MD LAB - URINE ORDERABLES Performing Organization Address City/State/[place] [address] [facility] Building [address] [facility] LAB documented in this encounter Visit Diagnoses Diagnosis Uncomplicated opioid dependence (H) - Pr imary Opioid type dependence, unspecified Major depressive disorder, recurrent epi sode, moderate (H) Major depressive disorder, recurrent epi sode, moderate documented in this encounter Care Teams Caser Relationship Specialty Start Date End Date System, Provider Not In PCP - General Clinic 08/12/14 07/13/16 documented as of this encounter
--- OUTSIDE RECORDS SUMMARY | 2021-12-05 19:31 | XMS_ITS | Encounter Summary ---
:1980 Author Organization [place] Address [address] [place] [address] Care Team Providers Name Role Phone Edgar Alfredo MD Primary Care Provider Encounter Details Date Type Department Care Team Description 06/29/2014 Telephone [facility] Nithya Alfredo MD [place] [address] [facility] [address] [place], [place] [address] [phone] [place] [phone] Social History Tobacco Use Types Packs/Day Years Used Date Smoking Tobacco: Every Day Cigarettes 0.1 10 Smokeless Tobacco: Never Comments: 5 cigarettes a day Alcohol Use Standard Drinks/Week Comments No 0 (1 standard drink = 0.6 oz pure alcoho l) Sex Assigned at Date Recorded Female 01/14/2020 10:57 AM PIANO PROFESSOR documented as of this encounter Miscellaneous Notes Telephone Encounter - Edgar Alfredo MD - 06/29/2014 10:07 AM CDT Advised of positive cocaine in urine Still denies Advised she must explain how it got there next visit documented in this encounter Plan of Treatment Upcoming Encounters Date Type Specialty Care Team Description 12/20/2021 Office Visit Wound Care Luis Camara, [place] [address] [facility] [place], [place] [address] (Wo rk) 01/21/2022 Office Visit Gastroenterology Juanis Levi [address] [place] [phone] Luis Fernando Miles MD 516 [facility] [address] [place] [address] documented as of this encounter Visit Diagnoses Not on filedocumented in this encounter Care Teams Cow Washer Relationship Specialty Start Date End Date Edgar Alfredo MD PCP - General Family Practice 04/13/12 08/11/[address] [facility] [address] [place] [phone] documented as of this encounter
--- OUTSIDE RECORDS SUMMARY | 2021-12-05 19:31 | XMS_ITS | Encounter Summary ---
:1980 Author Organization [place] Address 24[address] [facility] [place] [address] Care Team Providers Name Role Phone System, Provider Not In Primary Care Provider Unavailable Reason for Visit Reason Onset Date Comments Clinic Care Coordination - Follow-up 10/06/2014 Encounter Details Date Type Department Care Team Description 10/06/2014 Telephone [facility] Breanna Coleman Clinic Ca re Coordination Maternal Medicine MD Julian - Follow-up Center [place] [address] [place], [place] [phone] Social History Tobacco Use Types Packs/Day Years Used Date Smoking Tobacco: Every Day Cigarettes 0.1 10 Smokeless Tobacco: Never Comments: 5 cigarettes a day Alcohol Use Standard Drinks/Week Comments No 0 (1 standard drink = 0.6 oz pure alcoho l) Sex Assigned at Date Recorded Female 01/14/2020 10:57 AM TUNNEL MINER documented as of this encounter Miscellaneous Notes Telephone Encounter - Breanna Coleman MD - 10/06/2014 5:34 PM CDT After discussion with the father of the , Stephani has decided that she will transfer care to [facility]. We will forward her records to [place] [...] Visit Wound Care Luis Camara, [place] [address] [place], [place] [phone] (Wo rk) 01/21/2022 Office Visit Gastroenterology Juanis Levi [address] [place] [address] Luis Fernando Miles MD [address] [address] documented as of this encounter Visit Diagnoses Not on filedocumented in this encounter Care Teams Fuel Manager Relationship Specialty Start Date End Date System, Provider Not In PCP - General Clinic 08/12/14 07/13/16 documented as of this encounter
--- OUTSIDE RECORDS SUMMARY | 2021-12-05 19:31 | XMS_ITS | Encounter Summary ---
:1980 Author Organization [place] Address 2450 [facility] [place] [address] Care Team Providers Name Role Phone System, Provider Not In Primary Care Provider Unavailable Reason for Visit Reason Comments Recheck Medication Encounter Details Date Type Department Care Team Description 11/24/2014 Office Visit [facility] Edgar Alfredo Uncomplic ated opioid Clinic Ashly Gauthier MD dependence (H) (Primary [address] Dx) [address] [place] [phone] Social History Tobacco Use Types Packs/Day Years Used Date Smoking Tobacco: Every Day Cigarettes 0.1 10 Smokeless Tobacco: Never Comments: 5 cigarettes a day Alcohol Use Standard Drinks/Week Comments No 0 (1 standard drink = 0.6 oz pure alcoho l) Sex Assigned at Date Recorded Female 01/14/2020 10:57 AM VOICE OVER ANNOUNCER documented as of this encounter Last Filed [...] Take 1 tablet by mouth daily ??? Bubifgzf-Nfk-Oy-FA ( VITAMINS) 0.8 MG TABS Take 1 [...] reviewed in [facility] andupdated as appropriate. OBJECTIVE: BP 113/81 mmHg [...] RE-CHECK 1 MONTH} Edgar Alfredo MD, MD [facility] documented [...] Visit Wound Care Luis Camara DPM [address] [place] [address] (Wo rk) 01/21/2022 Office Visit Gastroenterology Juanis Levi [address] [place] [address] Luis Fernando Miles MD 516 [facility] [address] [place] [address] documented as of this encounter [...] Organization Address City/State/[place] [address] [facility] Building [address] [...] LAB - URINE ORDERABLES Performing Organization Address City/[facility] [place] [address] [facility] [address] LAB documented in this encounter Visit Diagnoses Diagnosis Uncomplicated opioid dependence (H) - Pr imary Opioid type dependence, unspecified documented in this encounter Care Teams Health Psychologist Relationship Specialty Start Date End Date System, Provider Not In PCP - General Clinic 08/12/14 07/13/16 documented as of this encounter
--- OUTSIDE RECORDS SUMMARY | 2021-12-05 19:31 | XMS_ITS | Encounter Summary ---
:1980 Author Organization [place] Address [address] [place] [address] Care Team Providers Name Role Phone System, Provider Not In Primary Care Provider Unavailable Reason for Visit Reason Onset Date Comments Erroneous encounter-disregard 10/11/2014 Encounter Details Date Type Department Care Team Description 10/11/2014 Office Visit [facility] Edgar Alfredo ERRONEOUS Clinic Ashly Gauthier MD ENCOUNTER--DISREGARD [address] [place] (Primary Dx) [address] [place] [phone] Social History Tobacco Use Types Packs/Day Years Used Date Smoking Tobacco: Every Day Cigarettes 0.1 10 Smokeless Tobacco: Never Comments: 5 cigarettes a day Alcohol Use Standard Drinks/Week Comments No 0 (1 standard drink = 0.6 oz pure alcoho l) Sex Assigned at Date Recorded Female 01/14/2020 10:57 AM SYSTEM ARCHITECT documented as of this encounter Progress Notes Edgar Alfredo MD - 10/11/2014 2:25 PM CDT This encounter was opened in error. Please disregard. documented in this encounter Plan of Treatment Upcoming Encounters Date Type Specialty Care Team Description 12/20/2021 Office Visit Wound Care Luis Camara [place] [address] [place], [place] [address] (Wo rk) 01/21/2022 Office Visit Gastroenterology Juanis Levi [address] [place] [address] Luis Fernando Miles MD 516 [facility] [address] [place], [place] [address] documented as of this encounter Visit Diagnoses Diagnosis ERRONEOUS ENCOUNTER--DISREGARD - Primary documented in this encounter Care Teams Heavy Coil Winder Relationship Specialty Start Date End Date System, Provider Not In PCP - General Clinic 08/12/14 07/13/16 documented as of this encounter
--- OUTSIDE RECORDS SUMMARY | 2021-12-05 19:31 | XMS_ITS | Encounter Summary ---
:1980 Author Organization [place] Address [address] [facility] [place] [address] Care Team Providers Name Role Phone System, Provider Not In Primary Care Provider Unavailable Reason for Visit Reason Onset Date Comments Other 01/17/2015 appointment request Encounter Details Date Type Department Care Team Description 01/17/2015 Telephone [facility] Edgar Alfredo, [facility] er (appointment Clinic [place] request ) [address] [place] [address] [place] [phone] (Wo rk) Social History Tobacco Use Types Packs/Day Years Used Date Smoking Tobacco: Every Day Cigarettes 0.1 10 Smokeless Tobacco: Never Comments: 5 cigarettes a day Alcohol Use Standard Drinks/Week Comments No 0 (1 standard drink = 0.6 oz pure alcoho l) Sex Assigned at Date Recorded Female 01/14/2020 10:57 AM BUSH AND VINE FARMER FRUIT CROPS documented as of this encounter Miscellaneous Notes Telephone Encounter - Suyapa Rodriguez CMA - 01/17/2015 1:43 PM CST Called patient, scheduled for . 01/19 @ 10:30a AND [employer]INE F[employer]ER [employer] Telephone Encounter - Edgar Alfredo MD - 01/17/2015 12:48 PM CST at 10:30 or Friday at 10:00 Should have enough medication until then AND VINE FARMER [employer]UIT CROPS Telephone Encounter - Shayy Boles - 01/17/2015 10:24 AM CST Incoming call from patient requesting to speak with provider about possibly being seen sometime thisweek. Patient states her son is in the hospital and she is wondering if can squeeze her in to be seen. She is also in need of a bridge of her medication for subutex. Patient can be reached at [phone] Shayy Boles Team Truck Caterer AND VINE FARMER FRUIT CROPS documented in this encounter Plan of Treatment Upcoming Encounters Date Type Specialty Care Team Description 12/20/2021 Office Visit Wound Care Luis Camara DPM [address] [place], [place] [address] (Wo rk) 01/21/2022 Office Visit Gastroenterology Juanis Levi [address] [place] [address] Luis Fernando Miles MD [address] [phone] documented as of this encounter Visit Diagnoses Not on filedocumented in this encounter Care Teams Felt Hat Inspector And Packer Relationship Specialty Start Date End Date System, Provider Not In PCP - General Clinic 08/12/14 07/13/16 documented as of this encounter
--- OUTSIDE RECORDS SUMMARY | 2021-12-05 19:31 | XMS_ITS | Encounter Summary ---
:1980 Author Organization [place] Address [address] [facility] [place] [address] Care Team Providers Name Role Phone System, Provider Not In Primary Care Provider Unavailable Reason for Visit Reason Onset Date Comments Transfer Note 10/10/2014 Encounter Details Date Type Department Care Team Description 10/10/2014 Telephone [facility] Maternal Sintia Rasheed, Transfer Note Medicine Center RN [place] [address] [place] [address] Social History Tobacco Use Types Packs/Day Years Used Date Smoking Tobacco: Every Day Cigarettes 0.1 10 Smokeless Tobacco: Never Comments: 5 cigarettes a day Alcohol Use Standard Drinks/Week Comments No 0 (1 standard drink = 0.6 oz pure alcoho l) Sex Assigned at Date Recorded Female 01/14/2020 10:57 AM INSTITUTE DIRECTOR documented as of this encounter Miscellaneous Notes Telephone Encounter - Sintia Rasheed RN - 10/10/2014 9:20 AM CDT Records faxed to [facility], verified [facility] received these records. Syeda, Mine Supervisor, will contact patient to schedule upcoming appts with [facility]. documented in this encounter Plan of Treatment Upcoming Encounters Date Type Specialty Care Team Description 12/20/2021 Office Visit Wound Care Luis Camara DPM [address] [place], [place] [address] (Wo rk) 01/21/2022 Office Visit Gastroenterology Juanis Levi [address] [place] [address] Luis Fernando Miles MD 516 [facility] 2[address] [place] [address] documented as of this encounter Visit Diagnoses Not on filedocumented in this encounter Care Teams Merchandise Carrier Relationship Specialty Start Date End Date System, Provider Not In PCP - General Clinic 08/12/14 07/13/16 documented as of this encounter
--- OUTSIDE RECORDS SUMMARY | 2021-12-05 19:31 | XMS_ITS | Encounter Summary ---
:1980 Author Organization [place] Address 2450 [facility] [address] Care Team Providers Name Role Phone System, Provider Not In Primary Care Provider Unavailable Reason for Visit Reason Comments Recheck Medication Encounter Details Date Type Department Care Team Description 11/03/2014 Office Visit [facility] Edgar Alfredoplic ated opioid dependence (H) (Primary Dx); Clinic Ashly Gauthier MD Opiate dependence (H) [address] [place] [phone] Social History Tobacco Use Types Packs/Day Years Used Date Smoking Tobacco: Every Day Cigarettes 0.1 10 Smokeless Tobacco: Never Comments: 5 cigarettes a day Alcohol Use Standard Drinks/Week Comments No 0 (1 standard drink = 0.6 oz pure alcoho l) Sex Assigned at Date Recorded Female 01/14/2020 10:57 AM COMMERCIAL ACCOUNT MANAGER documented as of this encounter [...] Take 1 tablet by mouth daily ??? Rqgyrppf-Bcd-Hr-FA ( VITAMINS) 0.8 MG TABS Take 1 [...] and Medical/Social/Surgical histories reviewed in [facility] andupdated as appropriate. ROS: Constitutional, HEENT, cardiovascular, [...] in 1 MONTH Edgar Alfredo MD, MD [facility] documented in this encounter [...] Visit Wound Care Luis Camara DPM [address] [place] [address] (Wo rk) 01/21/2022 Office Visit Gastroenterology Juanis Levi [address] [place] [address] Luis Fernando Miles MD [address] [place], [place] [address] [address] [place] [address] documented as of this encounter Procedures Procedure [...] Organization Address City/State/[place] [address] [facility] Building [address] [place] [address] [address] LAB Drug abuse screen (NL, [...] LAB - URINE ORDERABLES Performing Organization Address City/State/[facility] [place] [address] [facility] Building [address] RJ LAB documented in this encounter Visit Diagnoses Diagnosis Uncomplicated opioid dependence (H) - Pr imary Opioid type dependence, unspecified documented in this encounter Care Teams Invoicing Specialist Relationship Specialty Start Date End Date System, Provider Not In PCP - General Clinic 08/12/14 07/13/16 documented as of this encounter
--- OUTSIDE RECORDS SUMMARY | 2021-12-05 19:31 | XMS_ITS | Encounter Summary ---
:1980 Author Organization [place] Address [address] [facility] [place] [address] Care Team Providers Name Role Phone System, Provider Not In Primary Care Provider Unavailable Reason for Visit Reason Comments Recheck Medication Encounter Details Date Type Department Care Team Description 10/13/2014 Office Visit [facility] Edgar Alfredoplic ated opioid dependence (H) (Primary Dx); Clinic Ashly Gauthier MD Opiate dependence (H) [address] [place] [address] Social History Tobacco Use Types Packs/Day Years Used Date Smoking Tobacco: Every Day Cigarettes 0.1 10 Smokeless Tobacco: Never Comments: 5 cigarettes a day Alcohol Use Standard Drinks/Week Comments No 0 (1 standard drink = 0.6 oz pure alcoho l) Sex Assigned at Date Recorded Female 01/14/2020 10:57 AM ADMISSION NURSE documented as of this encounter Last Filed [...] followup WILL BE SWITCHING OB COVERAGE TO [email or web address] [facility]AB[facility] WILL HAVE HEART SURGERY ON [...] Take 1 tablet by mouth daily ??? Zrxfkfee-Uzd-Hr-FA ( VITAMINS) 0.8 MG TABS Take 1 [...] list, Allergies, and Medical/Social/Surgical histories reviewed in [facility] andupdated as appropriate. ROS: Constitutional, HEENT, [...] in 1 MONTH Edgar Alfredo MD, MD [facility] documented in this [...] Office Visit Wound Care Luis Camara DPM [address] [place] [address] (Wo rk) 01/21/2022 Office Visit Gastroenterology Juanis Levi [address] [place] [phone] Luis Fernando Miles MD 6 [facility] [address] [place] [address] documented as of this encounter Procedures Procedure [...] Organization Address City/State/[place] [address] [facility] Building [address] [place] [address] [address] [facility] LAB Drug abuse [...] LAB - URINE ORDERABLES Performing Organization Address City/State/[facility] [place] [address] [facility] Building [address] [facility] documented in this encounter Visit Diagnoses Diagnosis Uncomplicated opioid dependence (H) - Pr imary Opioid type dependence, unspecified documented in this encounter Care Teams Paediatrician Relationship Specialty Start Date End Date System, Provider Not In PCP - General Clinic 08/12/14 07/13/16 documented as of this encounter
--- OUTSIDE RECORDS SUMMARY | 2021-12-05 19:31 | XMS_ITS | Encounter Summary ---
:1980 Author Organization [place] Address [address] [facility] [place] [address] Care Team Providers Name Role Phone System, Provider Not In Primary Care Provider Unavailable Reason for Visit Reason Onset Date Comments Clinic Care Coordination - Follow-up 08/12/2014 Encounter Details Date Type Department Care Team Description 08/12/2014 Telephone [facility] Vivian Duncan, Clinic Care Coordination Maternal Medicine RN - [facility] [address] [place] [address] Social History Tobacco Use Types Packs/Day Years Used Date Smoking Tobacco: Every Day Cigarettes 0.1 10 Smokeless Tobacco: Never Comments: 5 cigarettes a day Alcohol Use Standard Drinks/Week Comments No 0 (1 standard drink = 0.6 oz pure alcoho l) Sex Assigned at Date Recorded Female 01/14/2020 10:57 AM WIRE BENDER HAND documented as of this encounter Miscellaneous Notes Telephone Encounter - Vivian Duncan - 08/12/2014 4:06 PM CDT Patient had requested that a patient hospice care sales consultant from [facility] call her to answer some of her questions. Stephani expressed that the ultrasound that she had today at [facility] showed abnormalities of the heart. The patient sounded very anxious about this and asked for statistics on how babies do with similar findings, how to treat this, and what the worst case scenerio would be. This health underwriter was unable to give her any information about these; there has been no formal diagnosis. Stephani has an appointment set up for August 24 for a echo, comprehensive ultrasound, and MFM consult at [facility]. Encouraged patient to write down questions that [...] Wound Care Luis Camara DPM [address] [place], [place] [phone] (Wo rk) 01/21/2022 Office Visit Gastroenterology Juanis Levi [address] [place] [address] Luis Fernando Miles MD [address] [address] documented as of this encounter Visit Diagnoses Not on filedocumented in this encounter Care Teams Mini Lab Operator Relationship Specialty Start Date End Date System, Provider Not In PCP - General Clinic 08/12/14 07/13/16 documented as of this encounter
--- OUTSIDE RECORDS SUMMARY | 2021-12-05 19:31 | XMS_ITS | Encounter Summary ---
:1980 Author Organization [place] Address [address] [place] [address] Care Team Providers Name Role Phone System, Provider Not In Primary Care Provider Unavailable Reason for Visit Reason Onset Date Comments Call Back 12/12/2014 Encounter Details Date Type Department Care Team Description 12/12/2014 Telephone [facility] Nithya Alfredo MD Call Back [place] [address] [facility] [address] [place], [place] [address] [address] [place] [phone] Social History Tobacco Use Types Packs/Day Years Used Date Smoking Tobacco: Every Day Cigarettes 0.1 10 Smokeless Tobacco: Never Comments: 5 cigarettes a day Alcohol Use Standard Drinks/Week Comments No 0 (1 standard drink = 0.6 oz pure alcoho l) Sex Assigned at Date Recorded Female 01/14/2020 10:57 AM SUPPLY CHAIN MANAGER documented as of this encounter Miscellaneous [...] was regarding please call pt back at [phone] Vivian Spence [facility] Male Model documented in this encounter Plan of Treatment Upcoming Encounters Date Type Specialty Care Team Description 12/20/2021 Office Visit Wound Care Luis Camara DPM [address] [place], [place] [phone] (Wo rk) 01/21/2022 Office Visit Gastroenterology Juanis Levi [address] [place] [address] Luis Fernando Miles MD 516 [facility] [address] [place], [place] [phone] documented as of this encounter Visit Diagnoses Not on filedocumented in this encounter Care Teams Agricultural Equipment Salesperson Relationship Specialty Start Date End Date System, Provider Not In PCP - General Clinic 08/12/14 07/13/16 documented as of this encounter
--- OUTSIDE RECORDS SUMMARY | 2021-12-05 19:31 | XMS_ITS | Encounter Summary ---
:1980 Author Organization [place] Address [address] [facility] [place] [address] Care Team Providers Name Role Phone System, Provider Not In Primary Care Provider Unavailable Encounter Details Date Type Department Care Team Description 08/24/2014 Hospital Encounter [facility] Breanna Coleman Pre gnancy, Maternal MD Julian [facility] [address] [place], [place] [address] [address] [place], [place] [phone] [address] (Work) [phone] Social History Tobacco Use Types Packs/Day Years Used Date Smoking Tobacco: Every Day Cigarettes 0.1 10 Smokeless Tobacco: Never Comments: 5 cigarettes a day Alcohol Use Standard Drinks/Week Comments No 0 (1 standard drink = 0.6 oz pure alcoho l) Sex Assigned at Date Recorded Female 01/14/2020 10:57 AM SEWING 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 FLOORPERSON documented as of this encounter Medications at Time of Discharge Medication Sig Dispensed Refills Start Date End Date levothyroxine (SYNTHROID, Take 1 tablet by 0 01/31/2018 LEVOTHROID) 125 MCG tablet mouth daily buprenorphine (SUBUTEX) 8 Take 1.5 tab daily 45 tablet 0 08/25/2014 MG SUBLIndications: Uncomplicated opioid dependence (H) Cholecalciferol (VITAMIN Take 2,000 Units 100 tablet 3 04/1008/24/2015 D) 2000 UNITS by mouth daily. tabletIndications: Vitamin B12 deficiency (non anaemic) melatonin 1 MG TABS Take 1 mg by mouth 0 10/13/2014 At Bedtime OMEPRAZOLE PO Take by mouth 0 11/30/19 17 daily Take 1 tablet by 30 tablet 6 12/10/2012 08/30/19 17 Jntkjdez-Rxo-Gw-FA mouth daily ( VITAMINS) 0.8 MG TABSIndications: [...] Visit Wound Care Luis Camara DPM [address] [place], [place] [phone] (Wo rk) 01/21/2022 Office Visit Gastroenterology Juanis Levi [address] [place] [address] Luis Fernando Miles MD [address] [facility] [address]A [place] [address] documented as of this encounter Procedures Procedure Name Priority Date/Time Associated Comments Diagnosis [facility] US COMPREHENSIVE Routine 08/24/2014 11:29 , Res ults for this SINGLE AM CDT incidental procedure are i n the results section. 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 The remainder of anatomy was adequately visualized and appeared normal. Narrative 08/26/2014 3:51 PM CDT Comprehensive Pat. Name: STEPHANI MCCORMICK Study Date: 08/24 10:55am Pat. NO: [id number] Referring ??MD: KATY ROCHE Site: [facility] Editor Publications: Carlos Gordon RDMS : 1980 Age: 35 [...] (HC-AC-FL) Head / Face / Neck Biometry: Employment Specialist ?7.9 ?mm ? Nasal bone ?7.2 ?mm [...] that delivery will need to be at [facility] where NICU and Pediatric Cardiology as [...] this patient and /or family members. Approximate zkoe-nc-covy time was 30 min utes. Procedure Note Breanna Coleman MD - 09/10/2016Format ting of this note might be different from the original. Comprehensive Pat. Name:Elizabeth MCCORMICK Date:08/25/19 15 10:55am Pat. NO: [id number] MD:YURIDIA ROCHE [facility]Carlos Gordon RDMS :1980Age:35 INDICATION Congenital [...] (HC-AC-FL) Head / Face / Neck Biometry: Employment Specialist 7.9 mm Nasal bone 7.2 mm Amniotic [...] that delivery will need to be at [facility] where NICU and Pediatric Cardiology as [...] this patient and /or family members. Approximate gqen-xz-brga time was 30 min utes. IMPRESSION Single [...] and appeared normal. Breanna Coleman MD [facility] US ORDERABLES documented in this encounter Visit Diagnoses Diagnosis , incidental state, incidental documented in this encounter Care Teams Topology Professor Relationship Specialty Start Date End Date System, Provider Not In PCP - General Clinic 08/12/14 07/13/16 documented as of this encounter
--- OUTSIDE RECORDS SUMMARY | 2021-12-05 19:31 | XMS_ITS | Encounter Summary ---
:1980 Author Organization [place] Address [address] [facility] [place] [address] Care Team Providers Name Role Phone Edgar Alfredo MD Primary Care Provider Reason for Visit Reason Comments Recheck Medication Encounter Details Date Type Department Care Team Description 07/21/2014 Office Visit [facility] Edgar Alfredoplic ated opioid dependence (H) (Primary Dx); Clinic Ashly Gauthier MD Opiate dependence (H) [address] [place] [address] Social History Tobacco Use Types Packs/Day Years Used Date Smoking Tobacco: Every Day Cigarettes 0.1 10 Smokeless Tobacco: Never Comments: 5 cigarettes a day Alcohol Use Standard Drinks/Week Comments No 0 (1 standard drink = 0.6 oz pure alcoho l) Sex Assigned at Date Recorded Female 01/14/2020 10:57 AM SCRAP COLLECTOR documented as of this encounter Last Filed [...] Visit Wound Care Luis Camara, [place] [address] [place] [address] (Wo rk) 01/21/2022 Office Visit Gastroenterology Juanis Levi [address] [place] [address] Luis Fernando Miles MD [address] [facility] [address] [place] [address] documented as of this encounter Procedures Procedure [...] Organization Address City/State/[place] [address] [facility] Building [address] [facility] [address] [facility] (ABNORMAL) [...] Organization Address City/State/[place] [address] [facility] [address] [facility] documented in this encounter Visit Diagnoses Diagnosis Uncomplicated opioid dependence (H) - Pr imary Opioid type dependence, unspecified documented in this encounter Care Teams Glaciologist Relationship Specialty Start Date End Date Edgar Alfredo MD PCP - General Family Practice 04/13/12 08/11/[address] [place] [address] documented as of this encounter
--- OUTSIDE RECORDS SUMMARY | 2021-12-05 19:31 | XMS_ITS | Encounter Summary ---
:1980 Author Organization [place] Address [address] [place] [address] Care Team Providers Name Role Phone System, Provider Not In Primary Care Provider Unavailable Reason for Referral - Closed Specialty Diagnoses / Procedures Referred By Contact Refer red To Contact Diagnoses Unspecified complication of , antepartum Angelique Brewer MD [address] [place] [address] Referral ID Status Reason Start Date Expiration Date Visits Requ ested Visits Authorized [id number] Closed 08/12/2014 02/08/2015 1 1 Encounter Details Date Type Department Care Team Description 08/12/2014 [facility] Only [facility] Angelique Brewer MD Unspecified Maternal [address] complica tion of Medicine [place] [address] , [place] [address] (Primary Dx) [address] [phone] [place], [place] [address] (Work) [phone] Social History Tobacco Use Types Packs/Day Years Used Date Smoking Tobacco: Every Day Cigarettes 0.1 10 Smokeless Tobacco: Never Comments: 5 cigarettes a day Alcohol Use Standard Drinks/Week Comments No 0 (1 standard drink = 0.6 oz pure alcoho l) Sex Assigned at Date Recorded Female 01/14/2020 10:57 AM WOOL GROWER documented as of this encounter Plan of Treatment Upcoming Encounters Date Type Specialty Care Team Description 12/20/2021 Office Visit Wound Care Luis Camara DPM [address] [facility] [place] [address] (Wo rk) 01/21/2022 Office Visit Gastroenterology Juanis Levi [address] [place] [address] Luis Fernando Miles MD 516 [facility] [address] [place] [address] Scheduled Referrals Name Type Priority Associated Diagnoses Order S chedule [facility] Referral Routine Unspecified complicatio n of Ordered: 08/12/2014 REFERRAL- , antepartum documented as of this encounter Visit Diagnoses Diagnosis Unspecified complication of , a ntepartum - Primary documented in this encounter Care Teams Hotel Security Officer Relationship Specialty Start Date End Date System, Provider Not In PCP - General Clinic 08/12/14 07/13/16 documented as of this encounter
--- OUTSIDE RECORDS SUMMARY | 2021-12-05 19:31 | XMS_ITS | Encounter Summary ---
:1980 Author Organization [place] Address [address] [facility] [place] [address] Care Team Providers Name Role Phone System, Provider Not In Primary Care Provider Unavailable Reason for Visit Reason Onset Date Comments Medication Request 12/19/2014 medication bridge Encounter Details Date Type Department Care Team Description 12/19/2014 Telephone [facility] Edgar Alfredo, [facility] ication Request Clinic Ashly VÁSQUEZ (medication bridge) [address] [place] [address] (Wo rk) Social History Tobacco Use Types Packs/Day Years Used Date Smoking Tobacco: Every Day Cigarettes 0.1 10 Smokeless Tobacco: Never Comments: 5 cigarettes a day Alcohol Use Standard Drinks/Week Comments No 0 (1 standard drink = 0.6 oz pure alcoho l) Sex Assigned at Date Recorded Female 01/14/2020 10:57 AM TAP BUILDER documented as of this encounter Miscellaneous Notes Telephone Encounter - Edgar Alfredo MD - 12/20/2014 12:17 PM CST Bridge ordered BUILDER Telephone Encounter - Nora Scott - 12/20/2014 11:36 AM CST Patient called back to check on status of message below. She is requesting a call back. Nora Scott Team Manager Ethics BUILDER Telephone Encounter - Shayy Boles - 12/19/2014 3:41 PM CST Incoming call from patient requesting a bridge for her subutex medication until her next apt on 12/26/14. Patient can be reached at [phone] with any questions Shayy Boles Team Manager Ethics BUILDER documented in this encounter Plan of Treatment Upcoming Encounters Date Type Specialty Care Team Description 12/20/2021 Office Visit Wound Care Luis Camara DPM [address] [place] [address] (Wo rk) 01/21/2022 Office Visit Gastroenterology Juanis Levi [address] [place] [phone] Luis Fernando Miles MD 516 [facility] [address] [place], [place] [address] documented as of this encounter Visit Diagnoses Diagnosis Uncomplicated opioid dependence (H) - Pr imary Opioid type dependence, unspecified documented in this encounter Care Teams Photographer'S Assistant Relationship Specialty Start Date End Date System, Provider Not In PCP - General Clinic 08/12/14 07/13/16 documented as of this encounter
--- OUTSIDE RECORDS SUMMARY | 2021-12-05 19:31 | XMS_ITS | Encounter Summary ---
:1980 Author Organization [place] Address [address] [facility] [place] [address] Care Team Providers Name Role Phone System, Provider Not In Primary Care Provider Unavailable Reason for Visit Reason Onset Date Comments Medication Request 02/09/2015 buprenorphine (SUBUT EX) 8 MG SUBL Encounter Details Date Type Department Care Team Description 02/09/2015 Telephone [facility] Edgar Alfredo, [facility] ication Request Clinic Ashly VÁSQUEZ (buprenorphine [address] [place] (SUBUTEX) 8 MG SUBL) [address] [place] [address] (Wo rk) Social History Tobacco Use Types Packs/Day Years Used Date Smoking Tobacco: Every Day Cigarettes 0.1 10 Smokeless Tobacco: Never Comments: 5 cigarettes a day Alcohol Use Standard Drinks/Week Comments No 0 (1 standard drink = 0.6 oz pure alcoho l) Sex Assigned at Date Recorded Female 01/14/2020 10:57 AM RECONCILIATION CLERK documented as of this encounter Miscellaneous Notes Telephone Encounter - Edgar Alfredo MD - 02/09/2015 1:37 PM CST Not sure what this is about; had 28 day supply ordered 01/19/15 - should last until 02/16/15 Does not have an appointment ; may need a bridge NCILIATION CLERK Telephone Encounter - Suyapa Rodriguez CMA - 02/09/2015 12:08 PM RECONCILIATION CLERK Pharmacy called, given vacation override to fill early. NCILIATION CLERK Telephone Encounter - Shayy Boles - 02/09/2015 11:44 AM CST Incoming call from patient requesting to speak with a nurse regarding her medication for buprenorphine (SUBUTEX) 8 MG SUBL. Patient states she was told by her pharmacy that they would need and ok from provider to get this medication refilled. Patient can be reached at [phone] Shayy Boles Team Edger Machine Operator NCILIATION CLERK documented in this encounter Plan of Treatment Upcoming Encounters Date Type Specialty Care Team Description 12/20/2021 Office Visit Wound Care Luis Caamra DPM [address] [place] [address] (Wo rk) 01/21/2022 Office Visit Gastroenterology Juanis Levi [address] [place] [phone] Luis Fernando Miles MD 516 [facility] [address] [place] [address] documented as of this encounter Visit Diagnoses Not on filedocumented in this encounter Care Teams Disposal Worker Relationship Specialty Start Date End Date System, Provider Not In PCP - General Clinic 08/12/14 07/13/16 documented as of this encounter
--- OUTSIDE RECORDS SUMMARY | 2021-12-05 19:31 | XMS_ITS | Encounter Summary ---
:1980 Author Organization [place] Address [address] [facility] [place] [address] Care Team Providers Name Role Phone System, Provider Not In Primary Care Provider Unavailable Reason for Visit - Closed Specialty Diagnoses / Procedures Referred By Contact Refer red To Contact Diagnoses Unspecified complication of , antepartum Breanna Coleman MD [address] [place] [address] Referral ID Status Reason Start Date Expiration Date Visits Requ ested Visits Authorized [id number] Closed 08/24/2014 08/24/2015 1 1 Encounter Details Date Type Department Care Team Description 08/24/2014 Office Visit [facility] Breanna Coleman MD [address] [place] [address] Unspecified Maternal Goldie Edwards GC [address] [place] [address] complication of Medicine Center , a ntepartum [place] [address] [place], [place] [address] Social History Tobacco Use Types Packs/Day Years Used Date Smoking Tobacco: Every Day Cigarettes 0.1 10 Smokeless Tobacco: Never Comments: 5 cigarettes a day Alcohol Use Standard Drinks/Week Comments No 0 (1 standard drink = 0.6 oz pure alcoho l) Sex Assigned at Date Recorded Female 01/14/2020 10:57 AM MILKER MACHINE documented as of this encounter Progress Notes [...] Time spent: 10 min Goldie Edwards MS, [facility] Certified Genetic Counselor [phone] documented in this encounter Plan of Treatment Upcoming Encounters Date Type Specialty Care Team Description 12/20/2021 Office Visit Wound Care Luis Camara DPM [address] [place], [place] [address] (Wo rk) 01/21/2022 Office Visit Gastroenterology Juanis Levi [address] [place] [address] Luis Fernando Miles MD 516 [facility] [address] [place], [place] [address] documented as of this encounter Visit Diagnoses Diagnosis Unspecified complication of , a ntepartum documented in this encounter Care Teams Call Circuit Worker Relationship Specialty Start Date End Date System, Provider Not In PCP - General Clinic 08/12/14 07/13/16 documented as of this encounter
--- OUTSIDE RECORDS SUMMARY | 2021-12-05 19:31 | XMS_ITS | Encounter Summary ---
:1980 Author Organization [place] Address [address] [place] [address] Care Team Providers Name Role Phone System, Provider Not In Primary Care Provider Unavailable Reason for Visit Reason Onset Date Comments Call Back 02/13/2015 Encounter Details Date Type Department Care Team Description 02/13/2015 Telephone [facility] Nithya Alfredo MD Call Back [place] [address] [facility] [address] [place], [place] [address] [phone] [place] [phone] Social History Tobacco Use Types Packs/Day Years Used Date Smoking Tobacco: Every Day Cigarettes 0.1 10 Smokeless Tobacco: Never Comments: 5 cigarettes a day Alcohol Use Standard Drinks/Week Comments No 0 (1 standard drink = 0.6 oz pure alcoho l) Sex Assigned at Date Recorded Female 01/14/2020 10:57 AM BLOCK 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 documented as of this encounter Miscellaneous Notes Addendum Note - Suyapa Murray CMA - 02/16/2015 9:57 AM BLOCK 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 Addended by: SUYAPA MURRAY on: 02/16/2015 09:57 AM Modules accepted: Orders, Medications K 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 Telephone Encounter - Suyapa Murray CMA - 02/13/2015 2:34 PM CST Talked to patient, made appt for 03/02 at 3pm, I will called in Rx on . Told she needs to make this last until her next visit. K 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 Telephone Encounter - Suyapa Murray CMA - 02/13/2015 1:27 PM CST Response from Dr. Alfredo: OK to call in a bridge until 03/02; Subutex 8 mg #11, 1.5 per day. Needs to make this last until 03/02 as we do not replace lost meds Left VM message for pt to call me back. Suyapa Murray, BRADLY, DON K 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 Telephone Encounter - Suyapa Murray CMA - 02/13/2015 11:29 AM BLOCK 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 Message E-mailed to Dr. Alfredo, awaiting response: Patient called, will run out of meds by 02/20/15, should have enough to 02/23/15, she doesn't know why she's short, baby still in Hospital, so been going there a lot. No appt yet, first available . 03/02 (just one slot at the moment). Do you want to call in a bridge or squeeze her in somewhere? K 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 Addendum Note - Nora Scott - 02/13/2015 10:45 AM BLOCK 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 Addended by: NORA SCOTT on: 02/13/2015 10:45 AM Modules accepted: Orders K 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 Telephone Encounter - Nora Scott - 02/13/2015 10:33 AM CST Pt returned call, pt is requesting to see on 02/20/15 because she states she will be out of medication by then. Business Representative stated was full that day, but property underwriter would send a message over to to see when he can see the patient and if he's willing to do a bridge of medication until that day. Pt states if a bridge is called in she would like to use the [facility] in [place], [place]. Pt can be reached at [phone]. Nora Scott Team Inspector Floor Sub Assembly K 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 Telephone Encounter - Nora Scott - 02/13/2015 10:25 AM CST Pt called and LVM on 02/09/15 requesting a call back from 's nurse. Business Representative attempted to call patient back on 02/13/15 to find out more details, but no answer. LVM asking patient to call the clinic back with any questions she may have. Nora Scott Team Inspector Floor Sub Assembly K 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 documented in this encounter Plan of Treatment Upcoming Encounters Date Type Specialty Care Team Description 12/20/2021 Office Visit Wound Care Luis Camara DPM [address] [place] [address] (Wo rk) 01/21/2022 Office Visit Gastroenterology Juanis Levi [address] [place] [phone] Luis Fernando Miles MD [address] [facility] [address] [place], [place] [address] documented as of this encounter Visit Diagnoses Diagnosis Uncomplicated opioid dependence (H) - Pr imary Opioid type dependence, unspecified documented in this encounter Care Teams Security Police Relationship Specialty Start Date End Date System, Provider Not In PCP - General Clinic 08/12/14 07/13/16 documented as of this encounter
--- OUTSIDE RECORDS SUMMARY | 2021-12-05 19:31 | XMS_ITS | Encounter Summary ---
:1980 Author Organization [place] Address [address] [facility] [place] [address] Care Team Providers Name Role Phone System, Provider Not In Primary Care Provider Unavailable Reason for Visit Reason Comments Recheck Medication Encounter Details Date Type Department Care Team Description 09/20/2014 Office Visit [facility] Edgar Alfredoplic ated opioid dependence (H) (Primary Dx); Clinic Ashly Gauthier MD Opiate dependence (H) [address] [place] [address] [place] [address] Social History Tobacco Use Types Packs/Day Years Used Date Smoking Tobacco: Every Day Cigarettes 0.1 10 Smokeless Tobacco: Never Comments: 5 cigarettes a day Alcohol Use Standard Drinks/Week Comments No 0 (1 standard drink = 0.6 oz pure alcoho l) Sex Assigned at Date Recorded Female 01/14/2020 10:57 AM STEWARD/STEWARDESS BANQUET documented as of this encounter Last Filed [...] Take 1 tablet by mouth daily ??? Rmtrgnbw-Tgz-Wf-FA ( VITAMINS) 0.8 MG TABS Take 1 [...] [facility] andupdated as appropriate. ROS: Constitutional, [...] RE-CHECK 5 WEEKS Edgar Alfredo MD, MD [facility] documented [...] Visit Wound Care Luis Camara DPM [address] [place], [place] [id number] (Wo rk) 01/21/2022 Office Visit Gastroenterology Juanis Levi [address] [place] [address] Luis Fernando Miles MD [address] [id number] documented as of this encounter Procedures Procedure [...] LAB - URINE ORDERABLES Performing Organization Address City/[facility] [place] [address] [facility] Building [address] [place], [place] [address]e [address] RJ LAB Drug abuse [...] LAB - URINE ORDERABLES Performing Organization Address City/[facility] [place] [address] [facility] Building [address] [facility] [address] [facility] [address] [place] LAB documented in this encounter Visit Diagnoses Diagnosis Uncomplicated opioid dependence (H) - Pr imary Opioid type dependence, unspecified documented in this encounter Care Teams Bailer Tenders Supervisor Relationship Specialty Start Date End Date System, Provider Not In PCP - General Clinic 08/12/14 07/13/16 documented as of this encounter
--- OUTSIDE RECORDS SUMMARY | 2021-12-05 19:31 | XMS_ITS | Encounter Summary ---
:1980 Author Organization [place] Address [address] [facility] [address] Care Team Providers Name Role Phone System, Provider Not In Primary Care Provider Unavailable Reason for Visit Reason Comments Recheck Medication Encounter Details Date Type Department Care Team Description 08/25/2014 Office Visit [facility] Edgar Alfredoplic ated opioid dependence (H) (Primary Dx); Clinic Ashly Gauthier MD Opiate dependence (H) [address] [place] [address] [place] [address] Social History Tobacco Use Types Packs/Day Years Used Date Smoking Tobacco: Every Day Cigarettes 0.1 10 Smokeless Tobacco: Never Comments: 5 cigarettes a day Alcohol Use Standard Drinks/Week Comments No 0 (1 standard drink = 0.6 oz pure alcoho l) Sex Assigned at Date Recorded Female 01/14/2020 10:57 AM BIZTALK DEVELOPER documented as of this encounter Last [...] Take 1 tablet by mouth daily ??? Hwtkigom-Its-It-FA ( VITAMINS) 0.8 MG TABS Take 1 [...] list, Allergies, and Medical/Social/Surgical histories reviewed in [facility] andupdated as appropriate. ROS: [...] Alfredo MD, MD [facility] documented in this encounter [...] Visit Wound Care Luis Camara DPM [address] [place], [place] [address] (Wo rk) 01/21/2022 Office Visit Gastroenterology Juanis Levi [address] [place] [address] Luis Fernando Miles MD 516 [facility] [address] [place], [place] [address] documented as of this encounter Procedures Procedure [...] Organization Address City/State/[place] [address] [facility] Building [address] [...] LAB - URINE ORDERABLES Performing Organization Address City/State/[facility] [place] [address] [facility] Building [address] LAB documented in this encounter Visit Diagnoses Diagnosis Uncomplicated opioid dependence (H) - Pr imary Opioid type dependence, unspecified documented in this encounter Care Teams Clinical Research Spec Relationship Specialty Start Date End Date System, Provider Not In PCP - General Clinic 08/12/14 07/13/16 documented as of this encounter
--- OUTSIDE RECORDS SUMMARY | 2021-12-05 19:31 | XMS_ITS | Encounter Summary ---
:1980 Author Organization [place] Address [facility] [place] [address] Care Team Providers Name Role Phone System, Provider Not In Primary Care Provider Unavailable Reason for Visit (Routine) - Closed Specialty Diagnoses / Procedures Referred By Contact Refer red To Contact Perinatology / Diagnoses * ID INS Zz Ur Peds Echo Lab Cardiology Procedures [facility]* [address] [place] [address] Referral ID Status Reason Start Date Expiration Date Visits Requ ested Visits Authorized [id number] Closed 08/24/2014 08/24/2015 1 1 Encounter Details Date Type Department Care Team Description 08/24/2014 Hospital Encounter [facility] Echo/EKG Breanna Coleman MD [address] [place] [address] , [address] [facility] [place] [address] Social History Tobacco Use Types Packs/Day Years Used Date Smoking Tobacco: Every Day Cigarettes 0.1 10 Smokeless Tobacco: Never Comments: 5 cigarettes a day Alcohol Use Standard Drinks/Week Comments No 0 (1 standard drink = 0.6 oz pure alcoho l) Sex Assigned at Date Recorded Female 01/14/2020 10:57 AM HARNESS MENDER documented as of this encounter Medications at [...] by 30 tablet 6 12/10/2012 08/30/19 17 Xjmqffuw-Njx-Gk-FA mouth daily ( VITAMINS) 0.8 MG TABSIndications: [...] Visit Wound Care Luis Camara DPM [address] [place], [place] [address] (Wo rk) 01/21/2022 Office Visit Gastroenterology Juanis Levi [address] [place] [address] Luis Fernando Miles MD 6 [facility] [address] [place] [address] documented as of this encounter Procedures Procedure [...] Narrative 08/25/2014 1:37 PM CDT PEDIATRIC ECHOCARDIOGRAM [facility] ? Gestational Age: 24 weeks Due Date: 11/18 ?? : Delivery Site: [facility] ??Tech: [email or web address] Diagnosis: Heart defect [...] ?? The plan is to deliver at [facility]. ??Expecting a full term delivery and [...] the systemic pulmonary venous connections. Ezra Rodríguez MD-[phone] ? Kyung Sheets MD-Pager [phone] Carlton Olivera MD-Pager ??[phone] or [phone] ? Blane Seay MD-Pager [phone] ? Carina Ruiz MD-Pager [phone] Tk Spain MD-Pager # [phone] Loretta Roberts MD Pager [phone] Brice Lloyd MD-Pager [phone] Breanna Coleman MD CV PEDS ECHO ORDERABLES documented in this encounter Visit Diagnoses Diagnosis , incidental state, incidental documented in this encounter Care Teams Photo Booth Operator Relationship Specialty Start Date End Date System, Provider Not In PCP - General Clinic 08/12/14 07/13/16 documented as of this encounter
--- OUTSIDE RECORDS SUMMARY | 2021-12-05 19:31 | XMS_ITS | Encounter Summary ---
:1980 Author Organization [place] Address [address] [facility] [place] [address] Care Team Providers Name Role Phone Edgar Alfredo MD Primary Care Provider Reason for Visit Reason Comments Recheck Medication Encounter Details Date Type Department Care Team Description 07/28/2014 Office Visit [facility] Edgar Alfredo Uncomplic ated opioid dependence (H) (Primary Dx); Clinic Ashly Gauthier MD Opiate dependence (H) [address] [place] [address] Social History Tobacco Use Types Packs/Day Years Used Date Smoking Tobacco: Every Day Cigarettes 0.1 10 Smokeless Tobacco: Never Comments: 5 cigarettes a day Alcohol Use Standard Drinks/Week Comments No 0 (1 standard drink = 0.6 oz pure alcoho l) Sex Assigned at Date Recorded Female 01/14/2020 10:57 AM TOGGLE PRESS FOLDER AND FEEDER documented as of this encounter Last [...] Body Mass Index 30.97 01/07/2013 11:29 AM TOGGLE PRESS FOLDER AND FEEDER documented in this encounter Progress Notes Edgar [...] Recovery program has been: ignored. GOES TO [facility] BUT WOULD BENEFIT FROM A MORE ACTIVE [...] recovery meetings:not at all. BUT HAS A [facility] ?? Problem list and histories reviewed & [...] Take 1 tablet by mouth daily ??? Qbqxmdje-Cai-Qd-FA ( VITAMINS) 0.8 MG TABS Take 1 [...] Allergies, and Medical/Social/Surgical histories reviewed in [facility] andupdated as appropriate. ROS: Constitutional, HEENT, cardiovascular, [...] in 1 month Edgar Alfredo MD, MD [facility] documented in this encounter [...] Office Visit Wound Care Luis Camara DPM [address] [place] [address] (Wo rk) 01/21/2022 Office Visit Gastroenterology Juanis Levi [address] [place] [address] Luis Fernando Miles MD 516 [facility] [address] [place], [place] [address] documented as of this encounter Procedures Procedure [...] Organization Address City/State/[place] [address] [facility] Building [address] [address] [facility]J LAB Drug abuse [...] Organization Address City/State/[place] [address] [facility] [address] [place] LAB documented in this encounter Visit Diagnoses Diagnosis Uncomplicated opioid dependence (H) - Pr imary Opioid type dependence, unspecified documented in this encounter Care Teams Drafter Apprentice Relationship Specialty Start Date End Date Edgar Alfredo MD PCP - General Family Practice 04/13/12 08/11/[address] [place] [address] documented as of this encounter
--- OUTSIDE RECORDS SUMMARY | 2021-12-05 19:32 | XMS_ITS | Encounter Summary ---
:1980 Author Organization [place] Address [address] [facility] [place] [address] Care Team Providers Name Role Phone Edagr Alfredo MD Primary Care Provider Reason for Visit Reason Onset Date Comments Medication Request 07/30/2013 suboxone Encounter Details Date Type Department Care Team Description 07/30/2013 Telephone [facility] Edgar Alfredo, [facility] ication Request Clinic Ashly VÁSQUEZ (suboxone) [address] [place] [address] [place] [address] (Wo rk) Social History Tobacco Use Types Packs/Day Years Used Date Smoking Tobacco: Every Day Cigarettes 0.1 10 Smokeless Tobacco: Never Comments: 5 cigarettes a day Alcohol Use Standard Drinks/Week Comments No 0 (1 standard drink = 0.6 oz pure alcoho l) Sex Assigned at Date Recorded Female 01/14/2020 10:57 AM ASSISTED LIVING ASSISTANT documented as of this encounter Miscellaneous Notes Telephone Encounter - Suyapa Rodriguez CMA - 07/30/2013 11:23 AM CDT Patient called and left VM message saying she misplaced her bottle of suboxone and needs more calledin to get to her appointment on Friday. She can be reached at [phone]. Suyapa Rodriguez CMA, LIVE IN CAREGIVER documented in this encounter Plan of Treatment Upcoming Encounters Date Type Specialty Care Team Description 12/20/2021 Office Visit Wound Care Luis Camara, [place] [address] [place], [place] [address] (Wo rk) 01/21/2022 Office Visit Gastroenterology Juanis Levi [address] [place] [address] Luis Fernando Miles MD 516 [facility] [address] [place], [place] [address] documented as of this encounter Visit Diagnoses Not on filedocumented in this encounter Care Teams Field Insurance Sales Manager Relationship Specialty Start Date End Date Edgar Alfredo MD PCP - General Family Practice 04/13/12 08/11/[address] [place] [address] [place] [address] documented as of this encounter
--- OUTSIDE RECORDS SUMMARY | 2021-12-05 19:32 | XMS_ITS | Encounter Summary ---
:1980 Author Organization [place] Address [address] [facility] [place] [address] Care Team Providers Name Role Phone Edgar Alfredo MD Primary Care Provider Reason for Visit Reason Comments Recheck Medication Encounter Details Date Type Department Care Team Description 06/08/2013 Office Visit [facility] Edgar Alfredo de pendence (H) Clinic Ashly Gauthier MD [address] [place] [address] [place] [address] Social History Tobacco Use Types Packs/Day Years Used Date Smoking Tobacco: Every Day Cigarettes 0.1 10 Smokeless Tobacco: Never Comments: 5 cigarettes a day Alcohol Use Standard Drinks/Week Comments No 0 (1 standard drink = 0.6 oz pure alcoho l) Sex Assigned at Date Recorded Female 01/14/2020 10:57 AM WAREHOUSE SPECIALIST documented as of this encounter Last [...] using cuff size: large Suyapa Rodriguez CMA, PATROL DRIVER documented in this encounter Plan of Treatment Upcoming Encounters Date Type Specialty Care Team Description 12/20/2021 Office Visit Wound Care Luis Camara DPM [address] [place], [place] [address] (Wo rk) 01/21/2022 Office Visit Gastroenterology Juanis Levi [address] [place] [address] Luis Fernando Miles MD [address] [place] [address] documented as of this encounter Procedures Procedure [...] LAB - URINE ORDERABLES Performing Organization Address City/[facility] Code Phon e Number [address] PRIMARY CARE Building [address] [...] LAB - URINE ORDERABLES Performing Organization Address [facility] Phon e Number [address] PRIMARY CARE Building [address] [place] LAB documented in this encounter Visit Diagnoses Diagnosis Opiate dependence (H) Opioid type dependence, unspecified documented in this encounter Care Teams Direct Marketing Executive Relationship Specialty Start Date End Date Edgar Alfredo MD PCP - General Family Practice 04/13/12 08/11/[address] [place] [address] documented as of this encounter
--- OUTSIDE RECORDS SUMMARY | 2021-12-05 19:32 | XMS_ITS | Encounter Summary ---
:1980 Author Organization [place] Address [address] [facility] [place] [address] Care Team Providers Name Role Phone Edgar Alfredo MD Primary Care Provider Reason for Visit Reason Comments Recheck Medication Encounter Details Date Type Department Care Team Description 12/23/2013 Office Visit [facility] Edgar Alfredo de pendence (H) Clinic Ashly Gauthier MD [address] [place] [address] [place] [address] Social History Tobacco Use Types Packs/Day Years Used Date Smoking Tobacco: Every Day Cigarettes 0.1 10 Smokeless Tobacco: Never Comments: 5 cigarettes a day Alcohol Use Standard Drinks/Week Comments No 0 (1 standard drink = 0.6 oz pure alcoho l) Sex Assigned at Date Recorded Female 01/14/2020 10:57 AM CASINO GAMING WORKER documented as of this encounter Last Filed Vital Signs Vital Sign Reading Time Taken Comments Blood Pressure 133/84 12/23/2013 4:56 PM CASINO GAMING WORKER Pulse 99 12/23/2013 4:56 PM CASINO GAMING WORKER Temperature - - Respiratory Rate - - [...] relapse, and establishing a solid recovery program. NO GAMING WORKER documented in this encounter Nursing Notes Suyapa [...] cuff size: large Suyapa Rodriguez MLT, CMA NO GAMING WORKER documented in this encounter Plan of Treatment Upcoming Encounters Date Type Specialty Care Team Description 12/20/2021 Office Visit Wound Care Luis Camara DPM [address] [place] [address] (Wo rk) 01/21/2022 Office Visit Gastroenterology Juanis Levi [address] [place] [address] Luis Fernando Miles MD [address] [facility] [place] [address] documented as of this encounter Procedures Procedure Name Priority Date/Time Associated Comments Diagnosis BUPRENORPHINE QUAL Routine 12/23/2013 4:56 PM Opiate dependenc e Results for this URINE CASINO GAMING WORKER (H) procedure are i n the results section. DRUG ABUSE SCREEN (NL, Routine 12/23/2013 4:56 PM Opiate depen dence Results for this RW) CASINO GAMING WORKER (H) procedure are i n the results section. documented in this encounter Results Buprenorphine Qual Urine (12/23/2013 4:56 PM CASINO GAMING WORKER) Patholo gist Method Time Signature Buprenorphine Negative [facility] LAB Qual Urine Specimen Anatomical Collection Method Collection Time Receive d Time (Source) Location / / Volume Laterality Urine specimen 12/23/2013 4:56 PM 014 5:01 (specimen) CASINO GAMING WORKER PM CASINO GAMING WORKER Edgar Alfredo MD LAB - URINE ORDERABLES Performing Organization Address City/State/[place] [address] [facility] Building [address] [place] [address] [address] [facility] LAB Drug abuse screen (NL, RW) (12/23/2013 4:56 PM CASINO GAMING WORKER) Component Value Ref Test Analysis Performed Pathologis [...] specimen 12/23/2013 4:56 PM 014 5:01 (specimen) CASINO GAMING WORKER PM CASINO GAMING WORKER Edgar Alfredo MD LAB - URINE ORDERABLES Performing Organization Address City/State/[place] [address] [facility] [address] [facility] LAB documented in this encounter Visit Diagnoses Diagnosis Opiate dependence (H) Opioid type dependence, unspecified documented in this encounter Care Teams Job Captain Relationship Specialty Start Date End Date Edgar Alfredo MD PCP - General Family Practice 04/13/12 08/11/[address] [place] [address] documented as of this encounter
--- OUTSIDE RECORDS SUMMARY | 2021-12-05 19:32 | XMS_ITS | Encounter Summary ---
:1980 Author Organization [place] Address [address] [facility] [address] Care Team Providers Name Role Phone Edgar Alfredo MD Primary Care Provider Reason for Visit Reason Comments Recheck Medication Encounter Details Date Type Department Care Team Description 06/23/2014 Office Visit [facility] Edgar Alfredo Cocaine a buse, unspecified (Primary Dx); Clinic Ashly Gauthier MD Opiate dependence (H) [address] [place] [address] Social History Tobacco Use Types Packs/Day Years Used Date Smoking Tobacco: Every Day Cigarettes 0.1 10 Smokeless Tobacco: Never Comments: 5 cigarettes a day Alcohol Use Standard Drinks/Week Comments No 0 (1 standard drink = 0.6 oz pure alcoho l) Sex Assigned at Date Recorded Female 01/14/2020 10:57 AM ELEVATED WORK PLATFORM OPERATOR documented as of this encounter Last [...] Office Visit Wound Care Luis Camara DPM [address] [place], [place] [address] (Wo rk) 01/21/2022 Office Visit Gastroenterology Juanis Levi [address] [place] [address] Luis Fernando Miles MD 6 [facility] [address] [place] [address] documented as of this encounter Procedures Procedure [...] quantitation of the assay. Analysis performed by [facility], [address] [place] [address] Specimen Anatomical Collection Method Collection Time Receive d Time (Source) Location / / Volume Laterality Urine specimen 06/23/2014 4:42 PM 015 4:47 (specimen) CDT PM CDT Edgar Alfredo MD LAB - URINE ORDERABLES Performing Organization Address City/State/ZIP [place] [address] [facility] Building [address] LAB Buprenorphine Qual Urine (06/23/2014 2:35 PM CDT) [facility] gist Method Time Signature Buprenorphine Positive LAB Qual Urine Specimen Anatomical Collection Method Collection Time Receive d Time (Source) Location / / Volume Laterality Urine specimen 06/23/2014 2:35 PM 015 2:40 (specimen) CDT PM CDT Edgar Alfredo MD LAB - URINE ORDERABLES Performing Organization Address City/[facility]/ZIP [place] [address] [facility] Building [address] [...] LAB - URINE ORDERABLES Performing Organization Address City/[facility]/ZIP [place] [address] [facility] [address] [place] LAB documented in this encounter Visit Diagnoses Diagnosis Cocaine abuse, unspecified - Primary Opiate dependence (H) Opioid type dependence, unspecified documented in this encounter Care Teams Lab Analyst Relationship Specialty Start Date End Date Edgar Alfredo MD PCP - General Family Practice 04/13/12 08/11/[address] [place] [address] 700 [place] [phone] documented as of this encounter
--- OUTSIDE RECORDS SUMMARY | 2021-12-05 19:32 | XMS_ITS | Encounter Summary ---
:1980 Author Organization [place] Address [address] [facility] [place] [address] Care Team Providers Name Role Phone Edgar Alfredo MD Primary Care Provider Reason for Visit Reason Comments Recheck Medication Encounter Details Date Type Department Care Team Description 05/05/2014 Office Visit [facility] Edgar Alfredo de pendence (H) Clinic Ashly Gauthier MD [address] [place] [address] Social History Tobacco Use Types Packs/Day Years Used Date Smoking Tobacco: Every Day Cigarettes 0.1 10 Smokeless Tobacco: Never Comments: 5 cigarettes a day Alcohol Use Standard Drinks/Week Comments No 0 (1 standard drink = 0.6 oz pure alcoho l) Sex Assigned at Date Recorded Female 01/14/2020 10:57 AM FUR POLISHER documented as of this encounter Last [...] Visit Wound Care Luis Camara DPM [address] [place] [address] (Wo rk) 01/21/2022 Office Visit Gastroenterology Juanis Levi [address] [place] [address] Luis Fernando Miles MD 6 [facility] [address]A [place] [address] documented as of this encounter Procedures Procedure [...] Organization Address City/State/[place] [address] [facility] Building [address] [place], [place] [address]e [address] LAB Drug abuse screen [...] Organization Address City/State/[place] [address] [facility] Building [address] [facility] LAB documented in this encounter Visit Diagnoses Diagnosis Opiate dependence (H) Opioid type dependence, unspecified documented in this encounter Care Teams Music Library Assistant Relationship Specialty Start Date End Date Edgar Alfredo MD PCP - General Family Practice 04/13/12 08/11/[address] [place] [address] documented as of this encounter
--- OUTSIDE RECORDS SUMMARY | 2021-12-05 19:32 | XMS_ITS | Encounter Summary ---
:1980 Author Organization [place] Address [address] [facility] [place] [address] Care Team Providers Name Role Phone Edgar Alfredo MD Primary Care Provider Reason for Visit Reason Comments Recheck Medication Encounter Details Date Type Department Care Team Description 09/30/2013 Office Visit [facility] Edgar Alfredo de pendence (H) Clinic Ashly Gauthier MD [address] [place] [address] Social History Tobacco Use Types Packs/Day Years Used Date Smoking Tobacco: Every Day Cigarettes 0.1 10 Smokeless Tobacco: Never Comments: 5 cigarettes a day Alcohol Use Standard Drinks/Week Comments No 0 (1 standard drink = 0.6 oz pure alcoho l) Sex Assigned at Date Recorded Female 01/14/2020 10:57 AM COOKIE PADDER documented as of this encounter Last Filed [...] Visit Wound Care Luis Camara DPM [address] [place], [place] [address] (Wo rk) 01/21/2022 Office Visit Gastroenterology Juanis Levi [address] [place] [phone] Luis Fernando Miles MD 6 [facility] [address] [place] [address] documented as of this encounter Procedures Procedure [...] Organization Address City/State/ZIP [place] [address] [facility] Building [address] [...] Organization Address City/State/ZIP [place] [address] [facility] Building [address] [place] LAB documented in this encounter Visit Diagnoses Diagnosis Opiate dependence (H) Opioid type dependence, unspecified documented in this encounter Care Teams Advertising Assistant Relationship Specialty Start Date End Date Edgar Alfredo MD PCP - General Family Practice 04/13/12 08/11/[address] [place] [address] documented as of this encounter
--- OUTSIDE RECORDS SUMMARY | 2021-12-05 19:32 | XMS_ITS | Encounter Summary ---
:1980 Author Organization [place] Address [address]50 [place] [address] Care Team Providers Name Role Phone Edgar Alfredo MD Primary Care Provider Reason for Visit Reason Onset Date Comments Recheck Medication Erroneous encounter-disregard 06/02/2014 Encounter Details Date Type Department Care Team Description 06/02/2014 Office Visit [facility] Edgar Alfredo ERRONEOUS Clinic Ashly Gauthier MD ENCOUNTER--DISREGARD [address] [place] (Primary Dx) [address] [place] [phone] Social History Tobacco Use Types Packs/Day Years Used Date Smoking Tobacco: Every Day Cigarettes 0.1 10 Smokeless Tobacco: Never Comments: 5 cigarettes a day Alcohol Use Standard Drinks/Week Comments No 0 (1 standard drink = 0.6 oz pure alcoho l) Sex Assigned at Date Recorded Female 01/14/2020 10:[address] RESEARCHER documented as of this encounter Progress Notes Edgar Alfredo MD - 06/02/2014 5:44 PM CDT This encounter was opened in error. Please disregard. documented in this encounter Plan of Treatment Upcoming Encounters Date Type Specialty Care Team Description 12/20/2021 Office Visit Wound Care Luis Camara, [place] [address] [place] [address] (Wo rk) 01/21/2022 Office Visit Gastroenterology Juanis Levi [address] [place] [address] Luis Fernando Miles MD 516 [facility] 2A [place] [address] documented as of this encounter Visit Diagnoses Diagnosis ERRONEOUS ENCOUNTER--DISREGARD - Primary documented in this encounter Care Teams Ship Laborer Relationship Specialty Start Date End Date Edgar Alfredo MD PCP - General Family Practice 04/13/12 08/11/14 [address] [facility] [address] [place] [address] documented as of this encounter
--- OUTSIDE RECORDS SUMMARY | 2021-12-05 19:32 | XMS_ITS | Encounter Summary ---
:1980 Author Organization [place] Address [address] [facility] [place] [address] Care Team Providers Name Role Phone Edgar Alfredo MD Primary Care Provider Reason for Visit Reason Onset Date Comments Formulary Issue 06/08/2014 buprenorphine (SUBUT EX) 8 MG SUBL Encounter Details Date Type Department Care Team Description 06/08/2014 Telephone [facility] Edgar Alfredo, For mulary Issue Clinic Ashly VÁSQUEZ (buprenorphine [address] [place] (SUBUTEX) 8 MG SUBL) [address] [place] [phone] (Wo rk) Social History Tobacco Use Types Packs/Day Years Used Date Smoking Tobacco: Every Day Cigarettes 0.1 10 Smokeless Tobacco: Never Comments: 5 cigarettes a day Alcohol Use Standard Drinks/Week Comments No 0 (1 standard drink = 0.6 oz pure alcoho l) Sex Assigned at Date Recorded Female 01/14/2020 10:57 AM PLASTIC SHEETS SUPERVISOR documented as of this encounter Miscellaneous Notes Telephone Encounter - Suyapa Rodriguez [facility] - 06/10/2014 8:53 AM CDT PA approved #[id number], good thru 06/17/14, will change insurance then and will need to be redone. Telephone Encounter - Suyapa Rodriguez CMA - 06/08/2014 2:20 PM CDT was waiting for necessary info from patient or Dr. Alfredo. Pt called back. PA faxed to [facility]. Telephone Encounter - Vivian Spence CMA - 06/08/2014 2:08 PM CDT Incoming call from patient stating a PA is needed for buprenorphine (SUBUTEX) 8 MG SUBL Vivian Spence, [facility] Pump Operator Byproducts documented in this encounter Plan of Treatment Upcoming Encounters Date Type Specialty Care Team Description 12/20/2021 Office Visit Wound Care Luis Camara, [place] [address] [place] [address] (Wo rk) 01/21/2022 Office Visit Gastroenterology Juanis Levi [address] [place] [phone] Luis Fernando Miles MD 516 [facility] [address] [place] [address] documented as of this encounter Visit Diagnoses Not on filedocumented in this encounter Care Teams Carroting Machine Operator Relationship Specialty Start Date End Date Edgar Alfredo MD PCP - General Family Practice 04/13/12 08/11/[address] [place] [address] 700 [place] [phone] documented as of this encounter
--- OUTSIDE RECORDS SUMMARY | 2021-12-05 19:32 | XMS_ITS | Encounter Summary ---
:1980 Author Organization [place] Address [address] [facility] [place] [address] Care Team Providers Name Role Phone Edgar Alfredo MD Primary Care Provider Reason for Visit Reason Comments Recheck Medication Encounter Details Date Type Department Care Team Description 11/22/2013 Office Visit [facility] Edgar Alfredo de pendence (H) Clinic Ashly Gauthier MD [address] [place] [phone] Social History Tobacco Use Types Packs/Day Years Used Date Smoking Tobacco: Every Day Cigarettes 0.1 10 Smokeless Tobacco: Never Comments: 5 cigarettes a day Alcohol Use Standard Drinks/Week Comments No 0 (1 standard drink = 0.6 oz pure alcoho l) Sex Assigned at Date Recorded Female 01/14/2020 10:57 AM SHAREMILKER documented as of this encounter Last Filed [...] TAKING MEDICATION PRESCRIBED VERY STRESSED LIFE WITH DIRECTOR OF RESEARCH AND DEVELOPMENT There has been: moderate craving. Cues to [...] Visit Wound Care Luis Camara DPM [address] [place] [address] (Wo rk) 01/21/2022 Office Visit Gastroenterology Juanis Levi [address] [place] [phone] Luis Fernando Miles MD [address] [facility] 2A [place] [address] documented as of this encounter Procedures Procedure [...] Organization Address City/State/[place] [address] [facility] Building [address] [place], [place] [address]e [address] [facility] LAB (ABNORMAL) Drug [...] Organization Address City/State/[place] [address] [facility] Building [address] [place] LAB documented in this encounter Visit Diagnoses Diagnosis Opiate dependence (H) Opioid type dependence, unspecified documented in this encounter Care Teams Pbx Teacher Relationship Specialty Start Date End Date Edgar Alfredo MD PCP - General Family Practice 04/13/12 08/11/[address] [place] [phone] documented as of this encounter
--- OUTSIDE RECORDS SUMMARY | 2021-12-05 19:32 | XMS_ITS | Encounter Summary ---
:1980 Author Organization [place] Address [address] [facility] [place] [address] Care Team Providers Name Role Phone Edgar Alfredo MD Primary Care Provider Reason for Visit Reason Comments Recheck Medication Encounter Details Date Type Department Care Team Description 07/08/2013 Office Visit [facility] Edgar Alfredo de pendence (H) Clinic Ashly Gauthier MD [address] [place] [phone] Social History Tobacco Use Types Packs/Day Years Used Date Smoking Tobacco: Every Day Cigarettes 0.1 10 Smokeless Tobacco: Never Comments: 5 cigarettes a day Alcohol Use Standard Drinks/Week Comments No 0 (1 standard drink = 0.6 oz pure alcoho l) Sex Assigned at Date Recorded Female 01/14/2020 10:57 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 documented as of this encounter Progress Notes Edgar Alfredo MD - 07/08/2013 2:25 PM CDT Patient unable to make appointment due to housing meeting Will refill Drug screen neg Reduce dose next visit documented in this encounter Plan of Treatment Upcoming Encounters Date Type Specialty Care Team Description 12/20/2021 Office Visit Wound Care Luis Camara, [place] [address] [place] [address] (Wo rk) 01/21/2022 Office Visit Gastroenterology Juanis Levi [address] [place] [phone] Luis Fernando Miles MD 516 [facility] 2A [place], [place] [address] documented as of this encounter Visit Diagnoses Diagnosis Opiate dependence (H) Opioid type dependence, unspecified documented in this encounter Care Teams Credit Card Interviewer Relationship Specialty Start Date End Date Edgar Alfredo MD PCP - General Family Practice 04/13/12 08/11/14 [address] [facility] [address] [place] [address] documented as of this encounter
--- OUTSIDE RECORDS SUMMARY | 2021-12-05 19:32 | XMS_ITS | Encounter Summary ---
:1980 Author Organization [place] Address [address]50 [facility] [place] [address] Care Team Providers Name Role Phone Edgar Alfredo MD Primary Care Provider Reason for Visit Reason Comments Recheck Medication Encounter Details Date Type Department Care Team Description 09/07/2013 Office Visit [facility] Edgar Alfredo de pendence (H) Clinic Ashly Gauthier MD [address] [place] [phone] Social History Tobacco Use Types Packs/Day Years Used Date Smoking Tobacco: Every Day Cigarettes 0.1 10 Smokeless Tobacco: Never Comments: 5 cigarettes a day Alcohol Use Standard Drinks/Week Comments No 0 (1 standard drink = 0.6 oz pure alcoho l) Sex Assigned at Date Recorded Female 01/14/2020 10:57 AM RESOURCING ADVISOR documented as of this encounter Last Filed [...] Visit Wound Care Luis Camara DPM [address] [employer], [place] [address] (Wo rk) 01/21/2022 Office Visit Gastroenterology Juanis Levi [address] [place] [phone] Luis Fernando Miles MD [address] [address] documented as of this encounter Procedures Procedure [...] LAB - URINE ORDERABLES Performing Organization Address City/[facility] Phon e Number [place], [place] [address] [place] [address] PRIMARY CARE [facility] [...] LAB - URINE ORDERABLES Performing Organization Address City/[facility] [place] [address] [facility] Building [address] [place] LAB documented in this encounter Visit Diagnoses Diagnosis Opiate dependence (H) Opioid type dependence, unspecified documented in this encounter Care Teams Archaeology Professor Relationship Specialty Start Date End Date Edgar Alfredo MD PCP - General Family Practice 04/13/12 08/11/[address] [place] [phone] documented as of this encounter
--- OUTSIDE RECORDS SUMMARY | 2021-12-05 19:32 | XMS_ITS | Encounter Summary ---
:1980 Author Organization [place] Address 2450 [facility] [place] [address] Care Team Providers Name Role Phone Edgar Alfredo MD Primary Care Provider Reason for Visit Reason Comments Recheck Medication Encounter Details Date Type Department Care Team Description 02/15/2014 Office Visit [facility] Edgar Alfredo de pendence (H) Clinic Ashly Gauthier MD [address] [place] [phone] Social History Tobacco Use Types Packs/Day Years Used Date Smoking Tobacco: Every Day Cigarettes 0.1 10 Smokeless Tobacco: Never Comments: 5 cigarettes a day Alcohol Use Standard Drinks/Week Comments No 0 (1 standard drink = 0.6 oz pure alcoho l) Sex Assigned at Date Recorded Female 01/14/2020 10:57 AM BALANCE RECESSER documented as of this encounter Last Filed Vital Signs Vital Sign Reading Time Taken Comments Blood Pressure 130/86 02/15/2014 11:30 AM BALANCE RECESSER Pulse 87 02/15/2014 11:30 AM BALANCE RECESSER Temperature - - Respiratory Rate - - [...] relapse, and establishing a solid recovery program. NCE RECESSER documented in this encounter Nursing Notes Suyapa [...] cuff size: large Suyapa Rodriguez MLT, CMA NCE RECESSER documented in this encounter Plan of Treatment Upcoming Encounters Date Type Specialty Care Team Description 12/20/2021 Office Visit Wound Care Luis Camara DPM [address] [place] [address] (Wo rk) 01/21/2022 Office Visit Gastroenterology Juanis Levi [address] [place] [address] Luis Fernando Miles MD 6 [facility] 2A [place] [address] documented as of this encounter Procedures Procedure Name Priority Date/Time Associated Comments Diagnosis BUPRENORPHINE QUAL Routine 02/15/2014 11:22 Opiate dependence Results for this URINE AM BALANCE RECESSER (H) procedure are i n the results section. DRUG ABUSE SCREEN (NL, Routine 02/15/2014 11:22 Opiate depende nce Results for this RW) AM BALANCE RECESSER (H) procedure are i n the results section. documented in this encounter Results Buprenorphine Qual Urine (02/15/2014 11:22 AM BALANCE RECESSER) Patholo gist Method Time Signature Buprenorphine Positive [facility] LAB Qual Urine Specimen Anatomical Collection Method Collection Time Receive d Time (Source) Location / / Volume Laterality Urine specimen 02/15/2014 11:22 4 (specimen) AM BALANCE RECESSER 11:27 AM BALANCE RECESSER Edgar Alfredo MD LAB - URINE ORDERABLES Performing Organization Address City/State/[place] [address] [facility] Building [address] [place] LAB Drug abuse screen (NL, RW) (02/15/2014 11:22 AM BALANCE RECESSER) Component Value Ref Test Analysis Performed Pathologis [...] Urine specimen 02/15/2014 11:22 4 (specimen) AM BALANCE RECESSER 11:27 AM BALANCE RECESSER Edgar Alfredo MD LAB - URINE ORDERABLES Performing Organization Address City/State/[place] [address] [facility] Building [address] [place] LAB documented in this encounter Visit Diagnoses Diagnosis Opiate dependence (H) Opioid type dependence, unspecified documented in this encounter Care Teams Career Development Facilitator Relationship Specialty Start Date End Date Edgar Alfredo MD PCP - General Family Practice 04/13/12 08/11/[address] [place] [address] documented as of this encounter
--- OUTSIDE RECORDS SUMMARY | 2021-12-05 19:32 | XMS_ITS | Encounter Summary ---
:1980 Author Organization [place] Address [address]50 [facility] [place] [address] Care Team Providers Name Role Phone Edgar Alfredo MD Primary Care Provider Reason for Visit Reason Onset Date Comments Refill Request 09/07/2013 Please refax Subutex script Encounter Details Date Type Department Care Team Description 09/07/2013 Telephone [facility] Edgar Alfredo, Ref ill Request (Please [facility] [place] refax Subutex script) [address] [place] [phone] (Wo rk) Social History Tobacco Use Types Packs/Day Years Used Date Smoking Tobacco: Every Day Cigarettes 0.1 10 Smokeless Tobacco: Never Comments: 5 cigarettes a day Alcohol Use Standard Drinks/Week Comments No 0 (1 standard drink = 0.6 oz pure alcoho l) Sex Assigned at Date Recorded Female 01/14/2020 10:57 AM WATER TRAINER documented as of this encounter Miscellaneous [...] Visit Wound Care Luis Camara DPM [address] [place] [address] (Wo rk) 01/21/2022 Office Visit Gastroenterology Juanis Levi [address] [place] [address] Luis Fernando Miles MD 516 [facility] 2[address] [place], [place] [address] documented as of this encounter Visit Diagnoses Not on filedocumented in this encounter Care Teams Sports Physical Therapist Relationship Specialty Start Date End Date Edgar Alfredo MD PCP - General Family Practice 04/13/12 08/11/14 [address] [facility] 700 [place] [address] documented as of this encounter
--- OUTSIDE RECORDS SUMMARY | 2021-12-05 19:32 | XMS_ITS | Encounter Summary ---
:1980 Author Organization [place] Address [address] [place] [address] Care Team Providers Name Role Phone Edgar Alfredo MD Primary Care Provider Reason for Visit Reason Onset Date Comments Refill Request 08/26/2013 Encounter Details Date Type Department Care Team Description 08/26/2013 Refill [facility] Nithya Alfredo MD Refill Request [place] [address] [place], [place] [address] [address] [place] [phone] Social History Tobacco Use Types Packs/Day Years Used Date Smoking Tobacco: Every Day Cigarettes 0.1 10 Smokeless Tobacco: Never Comments: 5 cigarettes a day Alcohol Use Standard Drinks/Week Comments No 0 (1 standard drink = 0.6 oz pure alcoho l) Sex Assigned at Date Recorded Female 01/14/2020 10:57 AM PROPULSION SYSTEMS ENGINEER documented as of this encounter Miscellaneous Notes Telephone Encounter - Edgar Alfredo MD - 08/26/2013 5:34 PM CDT Should have enough until 09/01/13 6 day bridge ordered Telephone Encounter - Suyapa Rodriguez CMA - 08/26/2013 4:43 PM CDT Patient called, could not get a ride for appt today, rescheduled for 09/07, needs bridge. Suyapa Rodriguez CMA, HAT MODEL documented in this encounter Plan of Treatment Upcoming Encounters Date Type Specialty Care Team Description 12/20/2021 Office Visit Wound Care Luis Camara, [place] [address] [place], [place] [phone] (Wo rk) 01/21/2022 Office Visit Gastroenterology Juanis Levi [address]50 [place] [phone] Luis Fernando Miles MD [address] [place] [address] [place], [place] [phone] documented as of this encounter Visit Diagnoses Diagnosis Opiate dependence (H) Opioid type dependence, unspecified documented in this encounter Care Teams Lacquer Machine Feeder Relationship Specialty Start Date End Date Edgar Alfredo MD PCP - General Family Practice 04/13/12 08/11/14 [address] [facility] 700 [place] [phone] documented as of this encounter
--- OUTSIDE RECORDS SUMMARY | 2021-12-05 19:32 | XMS_ITS | Encounter Summary ---
:1980 Author Organization [place] Address [address] [facility] [place] [address] Care Team Providers Name Role Phone Edgar Alfredo MD Primary Care Provider Reason for Visit Reason Comments Recheck Medication Encounter Details Date Type Department Care Team Description 04/12/2014 Office Visit [facility] Edgar Alfredo de pendence (H) Clinic Ashly Gauthier MD [address] [place] [address] Social History Tobacco Use Types Packs/Day Years Used Date Smoking Tobacco: Every Day Cigarettes 0.1 10 Smokeless Tobacco: Never Comments: 5 cigarettes a day Alcohol Use Standard Drinks/Week Comments No 0 (1 standard drink = 0.6 oz pure alcoho l) Sex Assigned at Date Recorded Female 01/14/2020 10:57 AM INTERVENTIONAL PAIN PHYSICIAN documented as of this encounter Last Filed Vital Signs Vital Sign Reading Time Taken Comments Blood Pressure 115/66 04/12/2014 11:18 AM INTERVENTIONAL PAIN PHYSICIAN Pulse 101 04/12/2014 11:18 AM INTERVENTIONAL PAIN PHYSICIAN Temperature - - Respiratory Rate - - [...] relapse, and establishing a solid recovery program. RVENTIONAL PAIN PHYSICIAN documented in this encounter Nursing Notes Suyapa [...] cuff size: large Suyapa Rodriguez MLT, CMA RVENTIONAL PAIN PHYSICIAN documented in this encounter Plan of Treatment Upcoming Encounters Date Type Specialty Care Team Description 12/20/2021 Office Visit Wound Care Luis Camara DPM [address] [place] [address] (Wo rk) 01/21/2022 Office Visit Gastroenterology Juanis Levi [address] [place] [address] Luis Fernando Miles MD [address] [facility] 2[address] [place] [address] documented as of this encounter Procedures Procedure Name Priority Date/Time Associated Comments Diagnosis BUPRENORPHINE QUAL Routine 04/12/2014 11:08 Opiate dependence Results for this URINE AM INTERVENTIONAL PAIN PHYSICIAN (H) procedure are i n the results section. DRUG ABUSE SCREEN (NL, Routine 04/12/2014 11:08 Opiate depende nce Results for this RW) AM INTERVENTIONAL PAIN PHYSICIAN (H) procedure are i n the results section. documented in this encounter Results Buprenorphine Qual Urine (04/12/2014 11:08 AM INTERVENTIONAL PAIN PHYSICIAN) Patholo gist Method Time Signature Buprenorphine Positive [facility] LAB Qual Urine Specimen Anatomical Collection Method Collection Time Receive d Time (Source) Location / / Volume Laterality Urine specimen 04/12/2014 11:08 5 (specimen) AM INTERVENTIONAL PAIN PHYSICIAN 11:13 AM INTERVENTIONAL PAIN PHYSICIAN Edgar Alfredo MD LAB - URINE ORDERABLES Performing Organization Address City/State/[facility] [place] [address] [facility] Building [address] R[facility] LAB Drug abuse screen (NL, RW) (04/12/2014 11:08 AM INTERVENTIONAL PAIN PHYSICIAN) Component Value Ref Test Analysis Performed Pathologis [...] Urine specimen 04/12/2014 11:08 5 (specimen) AM INTERVENTIONAL PAIN PHYSICIAN 11:13 AM INTERVENTIONAL PAIN PHYSICIAN Edgar Alfredo MD LAB - URINE ORDERABLES Performing Organization Address City/State/[facility] [place] [address] [facility]IMARY [facility] Building [address] RJ LAB documented in this encounter Visit Diagnoses Diagnosis Opiate dependence (H) Opioid type dependence, unspecified documented in this encounter Care Teams Social Worker Psychiatric Relationship Specialty Start Date End Date Edgar Alfredo MD PCP - General Family Practice 04/13/12 08/11/[address] [place] [phone] documented as of this encounter
--- OUTSIDE RECORDS SUMMARY | 2021-12-05 19:32 | XMS_ITS | Encounter Summary ---
:1980 Author Organization [place] Address [address] [facility] [place] [address] Care Team Providers Name Role Phone Edgar Alfredo MD Primary Care Provider Reason for Visit Reason Comments Recheck Medication Encounter Details Date Type Department Care Team Description 08/02/2013 Office Visit [facility] Edgar Alfredo de pendence (H) Clinic Ashly Gauthier MD [address] [place] [address] Social History Tobacco Use Types Packs/Day Years Used Date Smoking Tobacco: Every Day Cigarettes 0.1 10 Smokeless Tobacco: Never Comments: 5 cigarettes a day Alcohol Use Standard Drinks/Week Comments No 0 (1 standard drink = 0.6 oz pure alcoho l) Sex Assigned at Date Recorded Female 01/14/2020 10:57 AM HOME AID documented as of this encounter Last Filed [...] completed using cuff size: miguelangel Rodriguez CMA, CHEMIST INTERN documented in this encounter Plan of Treatment Upcoming Encounters Date Type Specialty Care Team Description 12/20/2021 Office Visit Wound Care Luis Camara, CALVIN [address] [place] [address] (Wo rk) 01/21/2022 Office Visit Gastroenterology Juains Levi [address] [place] [address] Luis Fernando Miles MD [address] [facility] [address] [place] [address] documented as of this encounter Procedures Procedure [...] Organization Address City/State/[place] [address] [facility] Building [address] [facility] [address] RJ LAB [...] Organization Address City/State/[place] [address] [facility]IMARY [facility]ARE Building [address] RJ LAB documented in this encounter Visit Diagnoses Diagnosis Opiate dependence (H) Opioid type dependence, unspecified documented in this encounter Care Teams Screed Person Relationship Specialty Start Date End Date Edgar Alfredo MD PCP - General Family Practice 04/13/12 08/11/[address] [place] [phone] documented as of this encounter
--- OUTSIDE RECORDS SUMMARY | 2021-12-05 19:32 | XMS_ITS | Encounter Summary ---
:1980 Author Organization [place] Address [address] [facility] [place] [address] Care Team Providers Name Role Phone Edgar Alfredo MD Primary Care Provider Reason for Visit Reason Onset Date Comments Refill Request 07/05/2013 subutex Encounter Details Date Type Department Care Team Description 07/05/2013 Telephone [facility] Edgar Alfredo, Ref ill Request Clinic Ashly VÁSQUEZ (subutex) [address] [place] [address] (Wo rk) Social History Tobacco Use Types Packs/Day Years Used Date Smoking Tobacco: Every Day Cigarettes 0.1 10 Smokeless Tobacco: Never Comments: 5 cigarettes a day Alcohol Use Standard Drinks/Week Comments No 0 (1 standard drink = 0.6 oz pure alcoho l) Sex Assigned at Date Recorded Female 01/14/2020 10:57 AM METAL DRESSER documented as of this encounter Miscellaneous Notes Telephone Encounter - Edgar Alfredo MD - 07/05/2013 3:42 PM CDT Bridge ordered Telephone Encounter - Suyapa Rodriguez [facility] - 07/05/2013 3:22 PM CDT Patient had appt tomorrow, has to take kids to doctor, rescheduled for Thurs. Ran out of meds today,needs bridge. Suyapa Rodriguez CMA, FIELD CROP TECHNICAL OFFICER documented in this encounter Plan of Treatment Upcoming Encounters Date Type Specialty Care Team Description 12/20/2021 Office Visit Wound Care Luis Camara, CALVIN [address] [place] [address] (Wo rk) 01/21/2022 Office Visit Gastroenterology Juanis Levi [address] [place] [address] Luis Fernando Miles MD 516 [facility] 2[address] [place], [place] [phone] documented as of this encounter Visit Diagnoses Diagnosis Opiate dependence (H) Opioid type dependence, unspecified documented in this encounter Care Teams Pigs Feet Finisher Relationship Specialty Start Date End Date Edgar Alfredo MD PCP - General Family Practice 04/13/12 08/11/[address] [place] [address] documented as of this encounter
--- OUTSIDE RECORDS SUMMARY | 2021-12-05 19:32 | XMS_ITS | Encounter Summary ---
:1980 Author Organization [place] Address [address] [facility] [address] Care Team Providers Name Role Phone Edgar Alfredo MD Primary Care Provider Encounter Details Date Type Department Care Team Description 07/08/2013 Orders Only [facility] Opi ate dependence (H) [place] [address] [facility] [address] [place], [place] [address] Social History Tobacco Use Types Packs/Day Years Used Date Smoking Tobacco: Every Day Cigarettes 0.1 10 Smokeless Tobacco: Never Comments: 5 cigarettes a day Alcohol Use Standard Drinks/Week Comments No 0 (1 standard drink = 0.6 oz pure alcoho l) Sex Assigned at Date Recorded Female 01/14/2020 10:57 AM DRAIN TILE 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 documented as of this encounter Plan of Treatment Upcoming Encounters Date Type Specialty Care Team Description 12/20/2021 Office Visit Wound Care Luis Cmaara DPM [address] [place] [address] (Wo rk) 01/21/2022 Office Visit Gastroenterology Juanis Levi [address] [place] [address] Luis Fernando Miles MD 516 [facility] [address] [place], [place] [phone] documented as of this encounter Procedures Procedure [...] Buprenorphine Qual Urine (07/08/2013 12:56 PM CDT) [facility] gist Method Time Signature Buprenorphine Positive [facility]J LAB Qual Urine Specimen Anatomical Collection Method Collection Time Receive d Time (Source) Location / / Volume Laterality Urine specimen 07/08/2013 12:56 4 1:01 (specimen) PM CDT PM CDT Edgar Alfredo MD LAB - URINE ORDERABLES Performing Organization Address [facility] Phon e Number [address] PRIMARY CARE Building [address] [address] RJ LAB Drug abuse screen (NL, RW) (07/08/2013 12:56 PM CDT) [facility] Method Time Signature Methamphetamine Negative RJ [...] URINE ORDERABLES Performing Organization Address [facility] Phon e Number [address] PRIMARY CARE Building [address] [facility] [address] RJ LAB documented in this encounter Visit Diagnoses Diagnosis Opiate dependence (H) Opioid type dependence, unspecified documented in this encounter Care Teams Cloth Opener Hand Relationship Specialty Start Date End Date Edgar Alfredo MD PCP - General Family Practice 04/13/12 08/11/14 [address] [facility] [address] [place] [address] documented as of this encounter
--- OUTSIDE RECORDS SUMMARY | 2021-12-05 19:32 | XMS_ITS | Encounter Summary ---
:1980 Author Organization [place] Address [address] [facility] [place] [address] Care Team Providers Name Role Phone Edgar Alfredo MD Primary Care Provider Reason for Visit Reason Onset Date Comments Call To Schedule Appointment 08/18/2013 Encounter Details Date Type Department Care Team Description 08/18/2013 Telephone [facility] Edgar Alfredo Cal l To Schedule Clinic Ashly VÁSQUEZ Appointment [address] [place] [address] (Wo rk) Social History Tobacco Use Types Packs/Day Years Used Date Smoking Tobacco: Every Day Cigarettes 0.1 10 Smokeless Tobacco: Never Comments: 5 cigarettes a day Alcohol Use Standard Drinks/Week Comments No 0 (1 standard drink = 0.6 oz pure alcoho l) Sex Assigned at Date Recorded Female 01/14/2020 10:57 AM DIAMOND SIZER AND SORTER documented as of this encounter Miscellaneous [...] Visit Wound Care Luis Camara DPM [address] [place], [place] [phone] (Wo rk) 01/21/2022 Office Visit Gastroenterology Juanis Levi [address] [place] [address] Luis Fernando Miles MD [address] [facility] [address] [place], [place] [address] documented as of this encounter Visit Diagnoses Not on filedocumented in this encounter Care Teams Massage Coordinator Relationship Specialty Start Date End Date Edgar Alfredo MD PCP - General Family Practice 04/13/12 08/11/14 [address] [facility] S [facility] [place] [address] [place] [address] documented as of this encounter
--- OUTSIDE RECORDS SUMMARY | 2021-12-05 19:32 | XMS_ITS | Encounter Summary ---
:1980 Author Organization [place] Address Count includes the [facility] [place] [address] Care Team Providers Name Role Phone Edgar Alfredo MD Primary Care Provider Reason for Visit Reason Onset Date Comments Panel Management 06/21/2013 [email or web address] Encounter Details Date Type Department Care Team Description 06/21/2013 [facility] Jax Larsen Panel Management Clinic Ashly Carver MD (phq9) [address] [facility] [address] [place] [address] [address] [place] [phone] (Wo rk) Social History Tobacco Use Types Packs/Day Years Used Date Smoking Tobacco: Every Day Cigarettes 0.1 10 Smokeless Tobacco: Never Comments: 5 cigarettes a day Alcohol Use Standard Drinks/Week Comments No 0 (1 standard drink = 0.6 oz pure alcoho l) Sex Assigned at Date Recorded Female 01/14/2020 10:57 AM DAY PORTER documented as of this encounter Plan of Treatment Upcoming Encounters Date Type Specialty Care Team Description 12/20/2021 Office Visit Wound Care Luis Camara DPM [address] [place], [place] [address] (Wo rk) 01/21/2022 Office Visit Gastroenterology Juanis Levi [address] [place] [address] Luis Fernando Miles MD 516 [facility] [address] [place], [place] [address] documented as of this encounter Visit Diagnoses Not on filedocumented in this encounter Care Teams Director Search Marketing Strategies Relationship Specialty Start Date End Date Edgar Alfredo MD PCP - General Family Practice 04/13/12 08/11/[address] [facility] [address] [place] [phone] documented as of this encounter
--- OUTSIDE RECORDS SUMMARY | 2021-12-05 19:32 | XMS_ITS | Encounter Summary ---
:1980 Author Organization [place] Address [facility] [place] [address] Care Team Providers Name Role Phone Edgar Alfredo MD Primary Care Provider System, Provider Not In Primary Care Provider Unavailable [facility], [facility] Primary Care Provide r Luis Fernando [place] Primary Care Provider [facility] Primary Care Provide r Tatyana Haas BROWNFIELD REDEVELOPMENT SITE MANAGER PIG CASTING 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 Unavailable [phone] Stephani Pina BROWNFIELD REDEVELOPMENT SITE MANAGER PIG CASTING 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 Unavailable [phone] Tatyana Haas BROWNFIELD REDEVELOPMENT SITE MANAGER PIG CASTING 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 Unavailable [phone] Stephani Pina BROWNFIELD REDEVELOPMENT SITE MANAGER PIG CASTING 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 Unavailable [phone] Juanis Levi Primary Care Provider Elsa Yeh RN Unavailable Unavailable Rogelio Treadwell MD Unavailable [phone] Luis CamaraM Unavailable [phone] Camryn Christina MD Unavailable Sintia Lange PA-C Unavailable Luis Fernando Miles MD Unavailable [phone] Reason for Visit Reason Onset Date Comments Call To Schedule Appointment 08/26/2013 Encounter Details Date Type Department Care Team Description 08/26/2013 Telephone [facility] Edgar Mcclain Cal l To Schedule Clinic Ashly VÁSQUEZ Appointment [address] [place] [address] (Wo rk) Social History Tobacco Use Types Packs/Day Years Used Date Smoking Tobacco: Every Day Cigarettes 0.1 10 Smokeless Tobacco: Never Comments: 5 cigarettes a day Alcohol Use Standard Drinks/Week Comments No 0 (1 standard drink = 0.6 oz pure alcoho l) Sex Assigned at Date Recorded Female 01/14/2020 10:57 AM GLUE 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 documented as of this encounter Miscellaneous Notes Telephone Encounter - Antonella Guillen - 08/27/2013 6:57 AM CDT Stephani calling to schedule an appointment with Dr. Alfredo. Please call patient to schedule. Thank you. documented in this encounter Plan of Treatment Upcoming Encounters Date Type Specialty Care Team Description 12/20/2021 Office Visit Wound Care Luis Camara DPM [address] [place] [address] (Wo rk) 01/21/2022 Office Visit Gastroenterology Juanis Levi [address] [place] [address] Luis Fernando Miles MD 516 [facility] [address] [place], [place] [address] documented as of this encounter Visit Diagnoses Not on filedocumented in this encounter Additional Health Concerns Infection Onset Date Last Indicated Resolved Time MRSAComment: Added from external infection. 11/07/201406/18 documented as of this encounter Care Teams Securities Supervisor Relationship Specialty Start Date End Date Edgar Alfredo, PCP - General Family Practice 04/13/1208/[address] [place] [address] 700 [place] [phone] System, Provider Not PCP - General Clinic 08/12/14 7 In [facility], [facility] PCP - General 07/14/[address] [address] Luis Fernando [place] PCP - General Family Practice 12/07/16 01/19/[address] [address] [facility], [facility] PCP - General 01/20/[address] [address] uJanis Levi PCP - General Addiction Medicine 06/29/[address] [place] [phone] Tatyana Haas, Assigned PCP 08/02/18 01/29/20 BROWNFIELD REDEVELOPMENT SITE MANAGER PIG CASTING 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 [facility] [address] [facility] [address] [place] [address] Stephani Pina, Assigned PCP 01/30/20 12/30/20 BROWNFIELD REDEVELOPMENT SITE MANAGER PIG CASTING 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 [address] [place] [address] 700 [place] [address] Tatyana Haas, Assigned PCP 12/31/20 02/24/21 BROWNFIELD REDEVELOPMENT SITE MANAGER PIG CASTING 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 [facility] [address] [facility] [address] [place] [address] Stephani Pina, Assigned PCP 02/25/21 BROWNFIELD REDEVELOPMENT SITE MANAGER PIG CASTING 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 [address] [place], [place] [address] Elsa Yeh, Registered Nurse Infectious Diseases 07/25/21 Rogelio Wilson Assigned Musculoskeletal 08/04/21 MD August Provider [address] [place], [place] [address] Luis Camara MD Podiatry 08/16/21 CALVIN Burnett [address] [place], [place] [phone] Camryn Christina Assigned Surgical 09/01/21 09/07/21 MD Lexie Provider 420 [facility] 195 [place], [place] [phone] Sintia Lange PA-C Assigned Surgical 09/08/[address] [facility] 4TH Provider FLOOR [place], [place] [phone] Landon Warren MD Gastroenterology 11/21/21 MD Luis Fernando 516 [facility] [address] [place], [place] [phone] documented as of this encounter
--- OUTSIDE RECORDS SUMMARY | 2021-12-05 19:32 | XMS_ITS | Encounter Summary ---
:1980 Author Organization [place] Address [address] [place] [address] Care Team Providers Name Role Phone Edgar Alfredo MD Primary Care Provider Reason for Visit Reason Comments Recheck Medication Encounter Details Date Type Department Care Team Description 03/15/2014 Office Visit [facility] Edgar Alfredo de pendence (H) Clinic Ashly Gauthier MD [address] [place] [address] Social History Tobacco Use Types Packs/Day Years Used Date Smoking Tobacco: Every Day Cigarettes 0.1 10 Smokeless Tobacco: Never Comments: 5 cigarettes a day Alcohol Use Standard Drinks/Week Comments No 0 (1 standard drink = 0.6 oz pure alcoho l) Sex Assigned at Date Recorded Female 01/14/2020 10:57 AM ORCHID GROWER documented as of this encounter Last Filed Vital Signs Vital Sign Reading Time Taken Comments Blood Pressure 110/63 03/15/2014 11:27 AM ORCHID GROWER Pulse 94 03/15/2014 11:27 AM ORCHID GROWER Temperature - - Respiratory Rate - - [...] relapse, and establishing a solid recovery program. ID GROWER documented in this encounter Nursing Notes Suyapa [...] cuff size: large Suyapa Rodriguez MLT, CMA ID GROWER documented in this encounter Plan of Treatment Upcoming Encounters Date Type Specialty Care Team Description 12/20/2021 Office Visit Wound Care Luis Camara DPM [address] [place], [place] [phone] (Wo rk) 01/21/2022 Office Visit Gastroenterology Juanis Levi [address] [place] [phone] Luis Fernando Miles MD 516 [facility] 2A [place] [address] documented as of this encounter Procedures Procedure Name Priority Date/Time Associated Comments Diagnosis BUPRENORPHINE QUAL Routine 03/15/2014 11:17 Opiate dependence Results for this URINE AM ORCHID GROWER (H) procedure are i n the results section. DRUG ABUSE SCREEN (NL, Routine 03/15/2014 11:17 Opiate depende nce Results for this RW) AM ORCHID GROWER (H) procedure are i n the results section. documented in this encounter Results Buprenorphine Qual Urine (03/15/2014 11:17 AM ORCHID GROWER) Patholo gist Method Time Signature Buprenorphine Positive RJ LAB Qual Urine Specimen Anatomical Collection Method Collection Time Receive d Time (Source) Location / / Volume Laterality Urine specimen 03/15/2014 11:17 5 (specimen) AM ORCHID GROWER 11:22 AM ORCHID GROWER Edgar Alfredo MD LAB - URINE ORDERABLES Performing Organization Address City/State/Z[place] [address] [facility] Building [address] RJ LAB Drug abuse screen (NL, RW) (03/15/2014 11:17 AM ORCHID GROWER) Component Value Ref Test Analysis Performed Pathologis [...] Urine specimen 03/15/2014 11:17 5 (specimen) AM ORCHID GROWER 11:22 AM ORCHID GROWER Edgar Alfredo MD LAB - URINE ORDERABLES Performing Organization Address City/State/ZIP [place] [address] [facility]IMARY [facility]ARE Building [address] RJ LAB documented in this encounter Visit Diagnoses Diagnosis Opiate dependence (H) Opioid type dependence, unspecified documented in this encounter Care Teams Fountain Waitress/Waiter Relationship Specialty Start Date End Date Edgar Alfredo MD PCP - General Family Practice 04/13/12 08/11/[address] [place] [address] documented as of this encounter
--- OUTSIDE RECORDS SUMMARY | 2021-12-05 19:32 | XMS_ITS | Encounter Summary ---
:1980 Author Organization [place] Address [address] [facility] [place] [address] Care Team Providers Name Role Phone Edgar Alfredo MD Primary Care Provider Reason for Visit Reason Onset Date Comments Medication Request 11/15/2013 subutex Encounter Details Date Type Department Care Team Description 11/15/2013 Telephone [facility] Edgar Alfredo, [facility] ication Request Clinic Ashly VÁSQUEZ (subutex) [address] [place] [place] [address] (Wo rk) Social History Tobacco Use Types Packs/Day Years Used Date Smoking Tobacco: Every Day Cigarettes 0.1 10 Smokeless Tobacco: Never Comments: 5 cigarettes a day Alcohol Use Standard Drinks/Week Comments No 0 (1 standard drink = 0.6 oz pure alcoho l) Sex Assigned at Date Recorded Female 01/14/2020 10:57 AM TRACK LINER OPERATOR documented as of this encounter Miscellaneous [...] her appt on 11/22. Call back # [phone]. Suyapa Rodriguez, BRADLY, DON documented in this encounter Plan of Treatment Upcoming Encounters Date Type Specialty Care Team Description 12/20/2021 Office Visit Wound Care Luis Camara, CALVIN [address] [place] [address] (Wo rk) 01/21/2022 Office Visit Gastroenterology Juanis Levi [address] [place] [address] Luis Fernando Miles MD 516 [facility] 2A [place], [place] [address] documented as of this encounter Visit Diagnoses Diagnosis Opiate dependence (H) Opioid type dependence, unspecified documented in this encounter Care Teams Cash Application Representative Relationship Specialty Start Date End Date Edgar Alfredo MD PCP - General Family Practice 04/13/12 08/11/14 [address] [facility] [address] [place] [address] documented as of this encounter
--- OUTSIDE RECORDS SUMMARY | 2021-12-05 19:32 | XMS_ITS | Encounter Summary ---
:1980 Author Organization [place] Address [address] [facility] [place] [address] Care Team Providers Name Role Phone Edgar Alfredo MD Primary Care Provider Reason for Visit Reason Onset Date Comments Pt. Information/instruction 07/27/2013 Schedule denisa ointment Encounter Details Date Type Department Care Team Description 07/27/2013 Telephone [facility] Edgar Alfredo, Pt. Clinic Ashly VÁSQUEZ Information/instruction [address] [place] (Schedule appointment ) [address] [place] [address] (Wo rk) Social History Tobacco Use Types Packs/Day Years Used Date Smoking Tobacco: Every Day Cigarettes 0.1 10 Smokeless Tobacco: Never Comments: 5 cigarettes a day Alcohol Use Standard Drinks/Week Comments No 0 (1 standard drink = 0.6 oz pure alcoho l) Sex Assigned at Date Recorded Female 01/14/2020 10:57 AM ASPHALT 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 documented as of this encounter Miscellaneous Notes Telephone Encounter - Antonella Guillen - 07/28/2013 7:11 AM CDT Patient called to schedule an appointment, please call to schedule. documented in this encounter Plan of Treatment Upcoming Encounters Date Type Specialty Care Team Description 12/20/2021 Office Visit Wound Care Luis Camara, [place] [address] [facility] [place] [address] (Wo rk) 01/21/2022 Office Visit Gastroenterology Juanis Levi [address] [facility] [address] Luis Fernando Miles MD [address] [facility] [place] [address] documented as of this encounter Visit Diagnoses Not on filedocumented in this encounter Care Teams Nuclear Equipment Research Engineer Relationship Specialty Start Date End Date Edgar Alfredo MD PCP - General Family Practice 04/13/12 08/11/[address] [place] [place] [address] documented as of this encounter
--- OUTSIDE RECORDS SUMMARY | 2021-12-05 19:32 | XMS_ITS | Encounter Summary ---
:1980 Author Organization [place] Address [address] [facility] [place] [address] Care Team Providers Name Role Phone Edgar Alfredo MD Primary Care Provider Reason for Visit Reason Comments Recheck Medication Encounter Details Date Type Department Care Team Description 11/09/2013 Office Visit [facility] Edgar Alfredo de pendence (H) Clinic Ashly Gauthier MD [address] [place] [address] [place] [address] Social History Tobacco Use Types Packs/Day Years Used Date Smoking Tobacco: Every Day Cigarettes 0.1 10 Smokeless Tobacco: Never Comments: 5 cigarettes a day Alcohol Use Standard Drinks/Week Comments No 0 (1 standard drink = 0.6 oz pure alcoho l) Sex Assigned at Date Recorded Female 01/14/2020 10:57 AM CARPENTER PROTOTYPE documented as of this encounter Last Filed [...] documented in this encounter Nursing Notes Suyapa Rodrgiuez CMA - 11/09/2013 10:57 AM CDT Chief [...] Office Visit Wound Care Luis Camara, [place] [address] [place] [id number] (Wo rk) 01/21/2022 Office Visit Gastroenterology AmitaJuanis Camryn [address]50 [place] [address] Luis Fernando Miles MD 516 [facility] [place], [place] [address] documented as of this encounter Procedures Procedure [...] Organization Address City/State/[place] [address] [facility] Building [address] [...] Organization Address City/State/[place] [address] [facility] Building [address] [facility] documented in this encounter Visit Diagnoses Diagnosis Opiate dependence (H) Opioid type dependence, unspecified documented in this encounter Care Teams Agricultural Pilot Relationship Specialty Start Date End Date Edgar Alfredo MD PCP - General Family Practice 04/13/12 08/11/[address] [place] [address] [place] [address] documented as of this encounter
--- OUTSIDE RECORDS SUMMARY | 2021-12-05 19:32 | XMS_ITS | Encounter Summary ---
:1980 Author Organization [place] Address [address] [place] [address] Care Team Providers Name Role Phone Edgar Alfredo MD Primary Care Provider Reason for Visit Reason Onset Date Comments Refill Request 09/07/2013 Encounter Details Date Type Department Care Team Description 09/06/2013 Refill [facility] Nithya Alfredo MD Refill Request [place] [address] [place] [address] [place], [place] [address] [address] [place] [address] [phone] Social History Tobacco Use Types Packs/Day Years Used Date Smoking Tobacco: Every Day Cigarettes 0.1 10 Smokeless Tobacco: Never Comments: 5 cigarettes a day Alcohol Use Standard Drinks/Week Comments No 0 (1 standard drink = 0.6 oz pure alcoho l) Sex Assigned at Date Recorded Female 01/14/2020 10:57 AM SENIOR INFORMATION DEVELOPER documented as of this encounter Miscellaneous [...] Visit Wound Care Luis Camara DPM [address] [facility] [place] [address] (Wo rk) 01/21/2022 Office Visit Gastroenterology Juanis Levi 2450 [place] [phone] Luis Fernando Miles MD 516 [facility] 2A [place], [place] [address] documented as of this encounter Visit Diagnoses Not on filedocumented in this encounter Care Teams Building Construction Teacher Relationship Specialty Start Date End Date Edgar Alfredo MD PCP - General Family Practice 04/13/12 08/11/14 [address] [facility] S [facility] 700 [place] [address] documented as of this encounter
--- OUTSIDE RECORDS SUMMARY | 2021-12-05 19:32 | XMS_ITS | Encounter Summary ---
:1980 Author Organization [place] Address [address] [facility] [place] [address] Care Team Providers Name Role Phone Edgar Alfredo MD Primary Care Provider Reason for Visit Reason Onset Date Comments Appointment 11/09/2013 Pt requesting a soon er Appointment Encounter Details Date Type Department Care Team Description 11/09/2013 Telephone [facility] Edgar Alfredo, [place] ointment (Pt Clinic Ashly VÁSQUEZ requesting a sooner [address] [place] Appointment) [address] [place] [address] (Wo rk) Social History Tobacco Use Types Packs/Day Years Used Date Smoking Tobacco: Every Day Cigarettes 0.1 10 Smokeless Tobacco: Never Comments: 5 cigarettes a day Alcohol Use Standard Drinks/Week Comments No 0 (1 standard drink = 0.6 oz pure alcoho l) Sex Assigned at Date Recorded Female 01/14/2020 10:[address]PRETER documented as of this encounter Miscellaneous Notes [...] Visit Wound Care Luis Camara, [place] [address] [place], [place] [phone] (Wo rk) 01/21/2022 Office Visit Gastroenterology Juanis Levi 2450 [place] [address] Luis Fernando Miles MD 516 [facility] 2A [place], [place] [phone] documented as of this encounter Visit Diagnoses Not on filedocumented in this encounter Care Teams Tuft Machine Operator Relationship Specialty Start Date End Date Edgar Alfredo MD PCP - General Family Practice 04/13/12 08/11/14 [address] [facility] S [facility] 700 [place] [address] documented as of this encounter
--- OUTSIDE RECORDS SUMMARY | 2021-12-05 19:32 | XMS_ITS | Encounter Summary ---
:1980 Author Organization [place] Address [address] [facility] [place] [address] Care Team Providers Name Role Phone Edgar Alfredo MD Primary Care Provider Reason for Visit Reason Onset Date Comments Recheck Medication Erroneous encounter-disregard 11/11/2013 Encounter Details Date Type Department Care Team Description 11/08/[address] [facility] Edgar Alfredo ERRONEOUS Clinic Ashly Gauthier MD ENCOUNTER--DISREGARD [address] [place] (Primary Dx) [address] [place] [address] Social History Tobacco Use Types Packs/Day Years Used Date Smoking Tobacco: Every Day Cigarettes 0.1 10 Smokeless Tobacco: Never Comments: 5 cigarettes a day Alcohol Use Standard Drinks/Week Comments No 0 (1 standard drink = 0.6 oz pure alcoho l) Sex Assigned at Date Recorded Female 01/14/2020 10:57 AM INSIDE SALES TRAINER documented as of this encounter Progress Notes Edgar Alfredo MD - 11/11/2013 5:16 PM CDT This encounter was opened in error. Please disregard. documented in this encounter Plan of Treatment Upcoming Encounters Date Type Specialty Care Team Description 12/20/2021 Office Visit Wound Care Luis Camara, [place] 9[address] [place] [address] (Wo rk) 01/21/2022 Office Visit Gastroenterology Juanis Levi [address]50 [place] [address] Luis Fernando Miles MD 516 [facility] 2A [place] [address] documented as of this encounter Visit Diagnoses Diagnosis ERRONEOUS ENCOUNTER--DISREGARD - Primary documented in this encounter Care Teams Brain Wave Technician Relationship Specialty Start Date End Date Edgar Alfredo MD PCP - General Family Practice 04/13/12 08/11/14 [address] [facility] [address] [place] [address] [place] [address] documented as of this encounter
--- OUTSIDE RECORDS SUMMARY | 2021-12-05 19:32 | XMS_ITS | Encounter Summary ---
:1980 Author Organization [place] Address [address] [place] [address] Care Team Providers Name Role Phone Edgar Alfredo MD Primary Care Provider Reason for Visit Reason Onset Date Comments Refill Request 06/07/2014 Encounter Details Date Type Department Care Team Description 06/07/2014 Telephone [facility] Nithya Alfredo MD Refill Request [place] [address] [place] [address] [place], [place] [address] [address] [place] [address] [phone] Social History Tobacco Use Types Packs/Day Years Used Date Smoking Tobacco: Every Day Cigarettes 0.1 10 Smokeless Tobacco: Never Comments: 5 cigarettes a day Alcohol Use Standard Drinks/Week Comments No 0 (1 standard drink = 0.6 oz pure alcoho l) Sex Assigned at Date Recorded Female 01/14/2020 10:57 AM ASSEMBLY INSTRUCTIONS WRITER documented as of this encounter Miscellaneous Notes [...] Sig: Take 1.5 tab daily Vivian Spence, [facility] Product Development Ecologist documented in this encounter Plan of Treatment Upcoming Encounters Date Type Specialty Care Team Description 12/20/2021 Office Visit Wound Care Luis Camara DPM 909 [place], [place] [address] (Wo rk) 01/21/2022 Office Visit Gastroenterology Juanis Levi [address]50 [place] [phone] Luis Fernando Miles MD 516 [facility] 2A [place] [address] documented as of this encounter Visit Diagnoses Diagnosis Opiate dependence (H) - Primary Opioid type dependence, unspecified documented in this encounter Care Teams Boat Finisher Relationship Specialty Start Date End Date Edgar Alfredo MD PCP - General Family Practice 04/13/12 08/11/[address] [place] [place] [address] documented as of this encounter
--- OUTSIDE RECORDS SUMMARY | 2021-12-05 19:32 | XMS_ITS | Encounter Summary ---
:1980 Author Organization [place] Address [address] [facility] [place] [address] Care Team Providers Name Role Phone Edgar Alfredo MD Primary Care Provider Reason for Visit Reason Comments Recheck Medication Encounter Details Date Type Department Care Team Description 01/18/2014 Office Visit [facility] Edgar Alfredo de pendence (H) Clinic Ashly Gauthier MD [address] [place] [address] [place] [address] Social History Tobacco Use Types Packs/Day Years Used Date Smoking Tobacco: Every Day Cigarettes 0.1 10 Smokeless Tobacco: Never Comments: 5 cigarettes a day Alcohol Use Standard Drinks/Week Comments No 0 (1 standard drink = 0.6 oz pure alcoho l) Sex Assigned at Date Recorded Female 01/14/2020 10:57 AM CREDIT REVIEW MANAGER documented as of this encounter Last Filed Vital Signs Vital Sign Reading Time Taken Comments Blood Pressure 117/82 01/18/2014 10:56 AM CREDIT REVIEW MANAGER Pulse 90 01/18/2014 10:56 AM CREDIT REVIEW MANAGER Temperature - - Respiratory Rate - - [...] relapse, and establishing a solid recovery program. IT REVIEW MANAGER documented in this encounter Nursing Notes Suyapa [...] cuff size: large Suyapa Rodriguez MLT, CMA IT REVIEW MANAGER documented in this encounter Plan of Treatment Upcoming Encounters Date Type Specialty Care Team Description 12/20/2021 Office Visit Wound Care Luis Camara DPM 909 [place] [address] (Wo rk) 01/21/2022 Office Visit Gastroenterology Juanis Levi 2450 [place] [address] Luis Fernando Miles MD 6 [facility] 2A [place] [address] documented as of this encounter Procedures Procedure Name Priority Date/Time Associated Comments Diagnosis BUPRENORPHINE QUAL Routine 01/18/2014 10:48 Opiate dependence Results for this URINE AM CREDIT REVIEW MANAGER (H) procedure are i n the results section. DRUG ABUSE SCREEN (NL, Routine 01/18/2014 10:48 Opiate depende nce Results for this RW) AM CREDIT REVIEW MANAGER (H) procedure are i n the results section. documented in this encounter Results Buprenorphine Qual Urine (01/18/2014 10:48 AM CREDIT REVIEW MANAGER) Patholo gist Method Time Signature Buprenorphine Positive [facility] Qual Urine Specimen Anatomical Collection Method Collection Time Receive d Time (Source) Location / / Volume Laterality Urine specimen 01/18/2014 10:48 4 (specimen) AM CREDIT REVIEW MANAGER 10:53 AM CREDIT REVIEW MANAGER Edgar Alfredo MD LAB - URINE ORDERABLES Performing Organization Address City/State/[place] [address] [facility] Building [address] [facility] (ABNORMAL) Drug abuse screen (NL, RW) (01/18/2014 10:48 AM CREDIT REVIEW MANAGER) Component Value Ref Test Analysis Performed Pathologis [...] Urine specimen 01/18/2014 10:48 4 (specimen) AM CREDIT REVIEW MANAGER 10:53 AM CREDIT REVIEW MANAGER Edgar Alfredo MD LAB - URINE ORDERABLES Performing Organization Address City/State/[place] [address] [facility] Building [address] [facility] documented in this encounter Visit Diagnoses Diagnosis Opiate dependence (H) Opioid type dependence, unspecified documented in this encounter Care Teams Woods Boss Relationship Specialty Start Date End Date Edgar Alfredo MD PCP - General Family Practice 04/13/12 08/11/[address] [place] [address] [place] [address] documented as of this encounter
--- OUTSIDE RECORDS SUMMARY | 2021-12-05 19:33 | XMS_ITS | Encounter Summary ---
:1980 Author Organization [place] Address [facility] [place] [address] Care Team Providers Name Role Phone Edgar Alfredo MD Primary Care Provider Reason for Visit Reason Onset Date Comments Refill Request 10/30/2012 subutex 8mg Encounter Details Date Type Department Care Team Description 10/30/2012 Refill [facility] Edgar Alfredo, Ref ill Request (subutex Clinic [place] 8mg) [address] [facility] [address] [facility] [address] 700 [place] [phone] (Wo rk) Social History Tobacco Use Types Packs/Day Years Used Date Smoking Tobacco: Every Day Cigarettes 0.1 10 Smokeless Tobacco: Never Comments: 5 cigarettes a day Alcohol Use Standard Drinks/Week Comments No 0 (1 standard drink = 0.6 oz pure alcoho l) Sex Assigned at Date Recorded Female 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 I have cancelled the RX at [facility] and faxed it to the requested pharmacy. Sintia Colon RN Telephone Encounter - Sintia Colon - 10/30/2012 2:53 PM CDT RX for suboxon has been faxed to [facility]. Sintia Colon RN Telephone Encounter - Madonna Cody - 10/30/2012 10:12 AM CDT Stephani called and said that she needs a refill on her subutex on the 03 of November. She made her next appointment with Dr. Alfredo on the 10 of November. She moved so she has a new pharmacy and that is the [facility] off of [address] and their telephone number is [phone]. Any questions she can bereached at [phone]. Telephone Encounter - Natanael Lima - 10/30/2012 9:46 AM CDT Last Fill Date: 10-08-12 Last Quantity: 34 Danisha Ornelas [facility]: [place] Please call patient with any questions at [phone] documented in this encounter Plan of Treatment Upcoming Encounters Date Type Specialty Care Team Description 12/20/2021 Office Visit Wound Care Luis Camara DPM 909 [place] [address] (Wo rk) 01/21/2022 Office Visit Gastroenterology Juanis Levi 2450 [place] [phone] Luis Fernando Miles MD [address] [phone] documented as of this encounter Visit Diagnoses Diagnosis Opiate dependence (H) - Primary Opioid type dependence, unspecified documented in this encounter Care Teams Room Cleaner Relationship Specialty Start Date End Date Edgar Alfredo MD PCP - General Family Practice 04/13/12 08/11/[address] [facility] 700 [place] [phone] documented as of this encounter
--- OUTSIDE RECORDS SUMMARY | 2021-12-05 19:33 | XMS_ITS | Encounter Summary ---
:1980 Author Organization [place] Address [facility] [place] [address] Care Team Providers Name Role Phone Edgar Alfredo MD Primary Care Provider System, Provider Not In Primary Care Provider Unavailable [facility], [facility] Primary Care Provide r Luis Fernando Magana Primary Care Provider [facility] Primary Care Provide r Tatyana Haas FRUIT GROWER PROGRAM CONSULTANT Unavailable [phone] Stephani Pina FRUIT GROWER PROGRAM CONSULTANT Unavailable [phone] Ttayana Haas FRUIT GROWER PROGRAM CONSULTANT Unavailable [phone] Stephani Pina FRUIT GROWER PROGRAM CONSULTANT Unavailable [phone] Juanis Levi Primary Care Provider Elsa Yeh RN Unavailable Unavailable Rogelio Treadwell MD Unavailable [phone] Luis CamaraM Unavailable [phone] Camryn Christina MD Unavailable Sintia Lange PA-C Unavailable Luis Fernando Miles MD Unavailable [phone] Reason for Visit Reason Onset Date Comments Other 01/08/2013 Encounter Details Date Type Department Care Team Description 01/08/2013 Telephone [facility] Nithya Alfredo MD Other [place] [address] [place] [address] [address] [place], [place] [address] [address] [place], [place] [address] [phone] Social History Tobacco Use Types Packs/Day Years Used Date Smoking Tobacco: Every Day Cigarettes 0.1 10 Smokeless Tobacco: Never Comments: 5 cigarettes a day Alcohol Use Standard Drinks/Week Comments No 0 (1 standard drink = 0.6 oz pure alcoho l) Sex Assigned at Date Recorded Female 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 Sintia Colon RN ALS REFEREE Telephone Encounter - Carmencita Blair - 01/08/2013 2:16 PM CST Pt accidentally took urine sample home yesterday that Dr. Alfredo was requesting and took medical ride so was unable to bring urine sample back, pt wants to know if she needs to come back right away for urine sample again Pt can be reached at [phone] ALS REFEREE documented in this encounter Plan of Treatment Upcoming Encounters Date Type Specialty Care Team Description 12/20/2021 Office Visit Wound Care Luis Camara, [place] [address] [facility] [place] [address] (Wo rk) 01/21/2022 Office Visit Gastroenterology Juanis Levi 2450 [place] [phone] Luis Fernando Miles MD 516 [facility] 2A [place], [place] [address] documented as of this encounter Visit Diagnoses Diagnosis Opiate dependence (H) - Primary Opioid type dependence, unspecified documented in this encounter Additional Health Concerns Infection Onset Date Last Indicated Resolved Time MRSAComment: Added from external infection. 11/07/201406/18 documented as of this encounter Care Teams Archeologist Classical Relationship Specialty Start Date End Date Edgar Alfredo, PCP - General Family Practice 04/13/1208/11 [address] [facility] S [facility] 700 [place] [address] System, Provider Not PCP - General Clinic 08/12/14 7 In [facility], [facility] PCP - General 07/14/[address] [address] Luis Fernando Magana PCP - General Family Practice 12/07/16 01/19/[address] [address] Clinic, [facility] PCP - General 01/20/[address] [address] Juanis Levi PCP - General Addiction Medicine 06/29/21 [address]50 [place] [address] Tatyana Haas, Assigned PCP 08/02/18 01/29/20 FRUIT GROWER PROGRAM CONSULTANT [facility] [address] [facility] [address] [place], [place] [address] Stephani Pina, Assigned PCP 01/30/20 12/30/20 FRUIT GROWER PROGRAM CONSULTANT [address] [place], [place] [address] Tatyana Haas, Assigned PCP 12/31/20 02/24/21 FRUIT GROWER PROGRAM CONSULTANT [facility] [address] [facility] [address] [place], [place] [address] Stephani Pina, Assigned PCP 02/25/21 FRUIT GROWER PROGRAM CONSULTANT [address] [place] [place], [place] [address] Elsa Yeh, Registered Nurse Infectious Diseases 07/25/21 Rogelio Wilson Assigned Musculoskeletal 08/04/21 MD August Provider 909 [place], [place] [address] Luis Camara MD Podiatry 08/16/21 [place] Burnett [address]09 [place], [place] [address] Camryn Christina Assigned Surgical 09/01/21 09/07/21 MD Lexie Provider [address] [facility] 195 [place], [place] [address] Sintia Lange PA-C Assigned Surgical 09/08/21 909 [facility] 4TH [place] [address] Landon [place] MD Gastroenterology 11/21/21 MD Luis Fernando 6 [facility] 2A [place], [place] [address] documented as of this encounter
--- OUTSIDE RECORDS SUMMARY | 2021-12-05 19:33 | XMS_ITS | Encounter Summary ---
:1980 Author Organization [place] Address [facility] [place] [address] Care Team Providers Name Role Phone Edgar Carbone MD Primary Care Provider Reason for Visit Reason Onset Date Comments Medication Request 02/12/2013 Encounter Details Date Type Department Care Team Description 02/12/2013 Telephone [facility] Edgar Carbone Ma rk, Medication Request Ashly VÁSQUEZ [address] [place] [address] [place] [address] [address] [place] [phone] (Wo rk) Social History Tobacco Use Types Packs/Day Years Used Date Smoking Tobacco: Every Day Cigarettes 0.1 10 Smokeless Tobacco: Never Comments: 5 cigarettes a day Alcohol Use Standard Drinks/Week Comments No 0 (1 standard drink = 0.6 oz pure alcoho l) Sex Assigned at Date Recorded Female 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 REAL SCIENTIST Telephone Encounter - Chapis Elizalde - 02/15/2013 12:46 PM CST Will fax to ana grimm until ua /drug screen complete.--GENARO De La Fuente RN REAL SCIENTIST Addendum Note - James Reese MD - 02/15/2013 12:44 PM ARBOREAL SCIENTIST Addended by: JAMES REESE on: 02/15/2013 12:44 PM Modules accepted: Orders REAL SCIENTIST Telephone Encounter - James Reese MD - 02/15/2013 12:42 PM ARBOREAL SCIENTIST Ordered - please notify patient . Thanks James Reese MD REAL SCIENTIST Addendum Note - Chapis Elizalde - 02/15/2013 12:05 PM ARBOREAL SCIENTIST Addended by: CHAPIS ELIZALDE on: 02/15/2013 12:05 PM Modules accepted: Orders REAL SCIENTIST Telephone Encounter - Chapis Elizalde - 02/15/2013 12:04 PM CST Pt coming in today for ua drug screen, if insurance calls is medically necessary for ride. Will route to dr reese to get medication filled coming at 200 Chapis Elizalde RN REAL SCIENTIST Telephone Encounter - James Reese MD - 02/15/2013 9:52 AM ARBOREAL SCIENTIST Read and agree with plan James Reese MD REAL SCIENTIST Telephone Encounter - Edgar Carbone MD - 02/13/2013 10:50 AM CST Attempted to reach patient ; no answer, mailbox full If she calls in my absence: inquire as to whether she has been sober or using. If using - seek detox. If sober - OK to fill Subutex 8 mg per day until appointment 03/01/13 Advise come in for drug screen REAL SCIENTIST Telephone Encounter - Chapis Elizalde - 02/12/2013 4:15 PM CST i do not see that pt has checked in for lab as of this time today--just to let you know Chapis Elizalde RN REAL SCIENTIST Telephone Encounter - Chapis Elizalde - 02/12/2013 12:31 PM CST 330 today for send outs. She uses [employer] [facility] [employer]. She will call for lab apt after she can set up ride for today Chapis Elizalde RN REAL SCIENTIST Telephone Encounter - Chapis Elizalde - 02/12/2013 12:26 PM CST Mail box full at this time, attempted to contact pt Chapis Elizalde RN REAL SCIENTIST Telephone Encounter - Edgar Carbone MD - 02/12/2013 12:21 PM CST Will refill as soon as she comes in to leave urine for drug screen - should be today REAL SCIENTIST Telephone Encounter - Chapis Elizalde - 02/12/2013 [...] for Friday to review. Chapis Elizalde RN REAL SCIENTIST Telephone Encounter - Radhamary kayVioleta - 02/12/2013 11:29 AM CST Patient calling in. Patient needs refill of Subutex Was only given a 1 week refill, but next appointet isnt until 03/01 need refill to cover until linic appointment. Patient is currently out of medication Pharmacy [facility] [place] [facility] Best number for patient - [phone] Thank you\ Violeta Knight Clinical Data Assistant REAL SCIENTIST documented in this encounter Plan of Treatment Upcoming Encounters Date Type Specialty Care Team Description 12/20/2021 Office Visit Wound Care Luis Camara DPM [address] [facility] [place], [place] [address] (Wo rk) 01/21/2022 Office Visit Gastroenterology Juanis Levi [address] [place] [phone] Luis Fernando Miles MD 516 [facility] 2A [place], [place] [address] documented as of this encounter Visit Diagnoses Diagnosis Opiate dependence (H) - Primary Opioid type dependence, unspecified documented in this encounter Care Teams Therapeutic Sales Specialist Relationship Specialty Start Date End Date Edgar Carbone MD PCP - General Family Practice 04/13/12 08/11/14 [address] [facility] 700 [place] [phone] documented as of this encounter
--- OUTSIDE RECORDS SUMMARY | 2021-12-05 19:33 | XMS_ITS | Encounter Summary ---
:1980 Author Organization [place] Address 24[address] [facility] [place] [address] Care Team Providers Name Role Phone Edgar Alfredo MD Primary Care Provider Reason for Visit Reason Onset Date Comments Erroneous encounter-disregard 03/04/2013 Encounter Details Date Type Department Care Team Description 03/01/2013 Office Visit [facility] Edgar Alfredo de pendence (H) (Primary Dx); Clinic Ashly Gauthier MD ERRONEOUS ENCOUNTER--DISREGARD [address] [place] [address] [place] [phone] Social History Tobacco Use Types Packs/Day Years Used Date Smoking Tobacco: Every Day Cigarettes 0.1 10 Smokeless Tobacco: Never Comments: 5 cigarettes a day Alcohol Use Standard Drinks/Week Comments No 0 (1 standard drink = 0.6 oz pure alcoho l) Sex Assigned at Date Recorded Female 01/14/2020 10:57 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 Please disregard. LERS AND MOTOR HOMES SALESPERSON documented in this encounter Plan of Treatment Upcoming Encounters Date Type Specialty Care Team Description 12/20/2021 Office Visit Wound Care Luis Camara, [place] [address] [facility] [address] [place], [place] [phone] (Wo rk) 01/21/2022 Office Visit Gastroenterology Juanis Levi [address]50 [place] [address] Luis Fernando Miles MD 516 [facility] [place], [place] [address] documented as of this encounter Visit Diagnoses Diagnosis Opiate dependence (H) - Primary Opioid type dependence, unspecified ERRONEOUS ENCOUNTER--DISREGARD documented in this encounter Care Teams Buyer Planner Relationship Specialty Start Date End Date Edgar Alfredo MD PCP - General Family Practice 04/13/12 08/11/14 [address] [facility] 700 [place] [phone] documented as of this encounter
--- OUTSIDE RECORDS SUMMARY | 2021-12-05 19:33 | XMS_ITS | Encounter Summary ---
:1980 Author Organization [place] Address [address]50 [place] [address] Care Team Providers Name Role Phone Edgar Alfredo MD Primary Care Provider Reason for Visit Reason Comments Recheck Medication Encounter Details Date Type Department Care Team Description 04/27/2013 Office Visit [facility] Edgar Alfredo Opiate de pendence (H) (Primary Dx); Clinic Ashly Gauthier MD Moderate major depression (H) [address] [place] [address] [place] [phone] Social History Tobacco Use Types Packs/Day Years Used Date Smoking Tobacco: Every Day Cigarettes 0.1 10 Smokeless Tobacco: Never Comments: 5 cigarettes a day Alcohol Use Standard Drinks/Week Comments No 0 (1 standard drink = 0.6 oz pure alcoho l) Sex Assigned at Date Recorded Female 01/14/2020 10:57 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 documented as of this encounter Last [...] using cuff size: large Suyapa Rodriguez CMA, RECREATION ATTENDANT documented in this encounter Plan of Treatment Upcoming Encounters Date Type Specialty Care Team Description 12/20/2021 Office Visit Wound Care Luis Camara DPM [address] [place] [address] (Wo rk) 01/21/2022 Office Visit Gastroenterology Juanis Levi 35[address] [place] [address] Luis Fernando Miles MD [address] [place] [address] [address] [place] [address] documented as of this encounter Procedures Procedure [...] BLOOD ORDERABLES Performing Organization Address City/[facility] [place] [address] [facility] Building [address] LAB Drug abuse screen (NL, RW) (04/27/2013 11:52 AM CDT) [facility] gist Method Time Signature Methamphetamine Negative [...] URINE ORDERABLES Performing Organization Address City/[facility] [place] [address] [facility] Building [address] RJ LAB documented in this encounter Visit Diagnoses Diagnosis Opiate dependence (H) - Primary Opioid type dependence, unspecified Moderate major depression (H) Major depressive disorder, single episod e, moderate documented in this encounter Care Teams Stockroom Supervisor Relationship Specialty Start Date End Date Edgar Alfredo MD PCP - General Family Practice 04/13/[address] [place] [address] [place] [address] documented as of this encounter
--- OUTSIDE RECORDS SUMMARY | 2021-12-05 19:33 | XMS_ITS | Encounter Summary ---
:1980 Author Organization [place] Address 2450 [facility] [place] [address] Care Team Providers Name Role Phone Edgar Alfredo MD Primary Care Provider Reason for Visit Reason Onset Date Comments Recheck Medication Erroneous encounter-disregard 03/18/2013 Encounter Details Date Type Department Care Team Description 03/15/2013 Office Visit [facility] Edgar Alfredo ERRONEOUS Clinic Ashly Gauthier MD ENCOUNTER--DISREGARD [address] [place] (Primary Dx) [address] [place] [phone] Social History Tobacco Use Types Packs/Day Years Used Date Smoking Tobacco: Every Day Cigarettes 0.1 10 Smokeless Tobacco: Never Comments: 5 cigarettes a day Alcohol Use Standard Drinks/Week Comments No 0 (1 standard drink = 0.6 oz pure alcoho l) Sex Assigned at Date Recorded Female 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 Please disregard. PUNCH PRESS OPERATOR documented in this encounter Plan of Treatment Upcoming Encounters Date Type Specialty Care Team Description 12/20/2021 Office Visit Wound Care Luis Camara, [place] [address] [place] [address] (Wo rk) 01/21/2022 Office Visit Gastroenterology Juanis Levi [address] [place] [address] Luis Fernando Miles MD 516 [facility] 2A [place] [address] documented as of this encounter Visit Diagnoses Diagnosis ERRONEOUS ENCOUNTER--DISREGARD - Primary documented in this encounter Care Teams Mesh Cutter Relationship Specialty Start Date End Date Edgar Alfredo MD PCP - General Family Practice 04/13/12 08/11/14 [address] [facility] [address] [place] [address] [place] [address] documented as of this encounter
--- OUTSIDE RECORDS SUMMARY | 2021-12-05 19:33 | XMS_ITS | Encounter Summary ---
:1980 Author Organization [place] Address [facility] [place] [address] Care Team Providers Name Role Phone Edgar Alfredo MD Primary Care Provider Reason for Visit Reason Comments RECHECK PHQ9 Recheck Medication No concerns Encounter Details Date Type Department Care Team Description 10/08/2012 Office Visit [facility] Edgar Alfredo Moderate major depression (H) (Primary Dx); Clinic Ashly Gauthier MD Opiate dependence (H) [address] [facility] [address] [facility] [address] [place] [phone] Social History Tobacco Use Types Packs/Day Years Used Date Smoking Tobacco: Every Day Cigarettes 0.1 10 Smokeless Tobacco: Never Comments: 5 cigarettes a day Alcohol Use Standard Drinks/Week Comments No 0 (1 standard drink = 0.6 oz pure alcoho l) Sex Assigned at Date Recorded Female 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/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 documented as of this encounter Last Filed [...] 1:15 PM CDT >> ANN MARIE JOHNSON [facility] Oct 08, 2012 2:00 PM Suboxone RX was faxed to [facility] Ann Marie Johnson [facility] >> SHANI LIND [facility] Oct 08, 2012 1:40 PM Patient [...] Luis Camara DPM [address] [place] [address] (Wo rk) 01/21/2022 Office Visit Gastroenterology Juanis Levi [address] [place] [address] Luis Fernando Miles MD 516 [facility] [address] [place], [place] [address] documented as of this encounter Procedures Procedure Name Priority Date/Time Associated Diagnosis Comme nts DRUG ABUSE SCREEN 6 Routine 10/08/2012 2:34 PM Opiate dependen ce Results for this CHEM DEP URINE CDT (H) procedure are in ([facility]) the results section. documented in this encounter Results (ABNORMAL) Drug abuse screen 6 urine (chem dep) ([facility]) (10/08/2012 2:34 PM CDT) Component Value Ref Test Analysis Performed Pathologis t Range Method Time At Signature Amphetamine Qual Positive NEG [facility] Urine Cutoff for a positive amphetamine is greater th an 500 ng/mL. This is an [facility] unconfirmed screening result to be used for medical purpose s only. (A) LAB Barbiturates Qual Negative NEG [facility] Urine Cutoff for a negative barbiturate is 200 ng/mL or less. [facility] Benzodiazepine Negative NEG [facility] Qual Urine Cutoff for a negative benzodiazepine is 200 ng/mL or less . [facility] Cannabinoids Qual Negative NEG [facility] Urine Cutoff for a negative cannabinoid is 50 ng/mL or less. [facility] Cocaine Qual Negative NEG [facility] Urine Cutoff for a negative cocaine is 300 ng/mL or less. [facility] Ethanol Qual Negative NEG [facility] Urine Cutoff for a negative urine ethanol is 50 mg/dL or less. [facility] Opiates Negative NEG [facility] Qualitative Urine Cutoff for a negative opiate is 300 ng/mL or less. [facility] Specimen Anatomical Collection Method Collection Time Receive d Time (Source) Location / / Volume Laterality Urine specimen 10/08/2012 2:34 PM 013 2:35 (specimen) CDT PM CDT Edgar Alfredo MD LAB - URINE ORDERABLES Performing Organization Address City/State/ZIP Code Phon e Number [facility] [address] [place] [address] [facility] documented in this encounter Visit Diagnoses Diagnosis Moderate major depression (H) - Primary Major depressive disorder, single episod e, moderate Opiate dependence (H) Opioid type dependence, unspecified documented in this encounter Care Teams Supervisor Concrete Stone Finishing Relationship Specialty Start Date End Date Edgar Alfredo MD PCP - General Family Practice 04/13/12 08/11/14 [address] [facility] [address] [place] [address] documented as of this encounter
--- OUTSIDE RECORDS SUMMARY | 2021-12-05 19:33 | XMS_ITS | Encounter Summary ---
:1980 Author Organization [place] Address 2450 [facility] [place] [address] Care Team Providers Name Role Phone Edgar Alfredo MD Primary Care Provider Encounter Details Date Type Department Care Team Description 11/28/2012 Telephone [facility] Rubi Larsen [place] MD [address] [place] [address] [place] [address] [address] [place], [place] [address] [place] [address] [phone] Social History Tobacco Use Types Packs/Day Years Used Date Smoking Tobacco: Every Day Cigarettes 0.1 10 Smokeless Tobacco: Never Comments: 5 cigarettes a day Alcohol Use Standard Drinks/Week Comments No 0 (1 standard drink = 0.6 oz pure alcoho l) Sex Assigned at Date Recorded Female 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/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 documented as of this encounter Miscellaneous [...] Visit Wound Care Luis Camara DPM [address] [facility] [place] [address] (Wo rk) 01/21/2022 Office Visit Gastroenterology Juanis Levi [address]50 [place] [phone] Luis Fernando Miles MD 516 [facility] 2A [place] [address] documented as of this encounter Visit Diagnoses Not on filedocumented in this encounter Care Teams Manufacturing Technology Professor Relationship Specialty Start Date End Date Edgar Alfredo MD PCP - General Family Practice 04/13/12 08/11/[address] [place] [address] 700 [place] [phone] documented as of this encounter
--- OUTSIDE RECORDS SUMMARY | 2021-12-05 19:33 | XMS_ITS | Encounter Summary ---
:1980 Author Organization [place] Address [address]50 [facility] [address] Care Team Providers Name Role Phone Edgar Alfredo MD Primary Care Provider Reason for Visit Reason Onset Date Comments Refill Request 11/16/2012 Encounter Details Date Type Department Care Team Description 11/16/[address] 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 Telephone Encounter - Marycarmen Spence - 11/16/2012 2:59 PM CDT Wellbutrin has refills per computer chart, refill for Subutex routed to provider to review, please advise. Marycarmen Spence RN Telephone Encounter - WeatherfordEj brownsosa - 11/16/2012 2:41 PM CDT subutex & wellbutrin refill request documented in this encounter Plan of Treatment Upcoming Encounters Date Type Specialty Care Team Description 12/20/2021 Office Visit Wound Care Luis Camara DPM [address] [place] [address] (Wo rk) 01/21/2022 Office Visit Gastroenterology Juanis Levi 2450 [place] [phone] Luis Fernando Miles MD 516 [facility] 2A [place] [address] documented as of this encounter Visit Diagnoses Diagnosis Opiate dependence (H) - Primary Opioid type dependence, unspecified documented in this encounter Care Teams Guidance Adviser Relationship Specialty Start Date End Date Edgar Alfredo MD PCP - General Family Practice 04/13/12 08/11/14 [address] [facility] 700 [place] [phone] documented as of this encounter
--- OUTSIDE RECORDS SUMMARY | 2021-12-05 19:33 | XMS_ITS | Encounter Summary ---
:1980 Author Organization [place] Address 2450 [facility] [place] [address] Care Team Providers Name Role Phone Edgar Alfredo MD Primary Care Provider Reason for Visit Reason Onset Date Comments Medication Request 03/15/2013 subutex Encounter Details Date Type Department Care Team Description 03/15/2013 Telephone [facility] Edgar Alfredo, [facility] ication Request Clinic Ashly VÁSQUEZ (subutex) [address] [place] [address] [place] [phone] (Wo rk) Social History Tobacco Use Types Packs/Day Years Used Date Smoking Tobacco: Every Day Cigarettes 0.1 10 Smokeless Tobacco: Never Comments: 5 cigarettes a day Alcohol Use Standard Drinks/Week Comments No 0 (1 standard drink = 0.6 oz pure alcoho l) Sex Assigned at Date Recorded Female 01/14/2020 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 Said she missed her appt. due to car trouble. Has new appt. on 03/23/13. She is out of her med. Needs new Rx. She can be reached at [phone]. Suyapa Rodriguez, RIPSAWYER, SPLUNK CONSULTANT F CLERK documented in this encounter Plan of Treatment Upcoming Encounters Date Type Specialty Care Team Description 12/20/2021 Office Visit Wound Care Luis Camara, [place] [address] [place], [place] [address] (Wo rk) 01/21/2022 Office Visit Gastroenterology Juanis Levi [address] [place] [address] Luis Fernando Miles MD 516 [facility] 2A [place], [place] [address] documented as of this encounter Visit Diagnoses Diagnosis Opiate dependence (H) - Primary Opioid type dependence, unspecified documented in this encounter Care Teams Insurance Follow Up Representative Relationship Specialty Start Date End Date Edgar Alfredo MD PCP - General Family Practice 04/13/12 08/11/14 [address] [facility] 700 [place] [address] documented as of this encounter
--- OUTSIDE RECORDS SUMMARY | 2021-12-05 19:33 | XMS_ITS | Encounter Summary ---
:1980 Author Organization [place] Address 2450 [facility] [place] [address] Care Team Providers Name Role Phone Edgar Alfredo MD Primary Care Provider Reason for Visit Reason Onset Date Comments Recheck Medication Erroneous encounter-disregard 05/17/2013 Encounter Details Date Type Department Care Team Description 05/17/2013 Office Visit [facility] Edgar Alfredo de pendence (H) (Primary Dx); Clinic Ashly Gauthier MD ERRONEOUS ENCOUNTER--DISREGARD [address] [place] [address] [place] [phone] Social History Tobacco Use Types Packs/Day Years Used Date Smoking Tobacco: Every Day Cigarettes 0.1 10 Smokeless Tobacco: Never Comments: 5 cigarettes a day Alcohol Use Standard Drinks/Week Comments No 0 (1 standard drink = 0.6 oz pure alcoho l) Sex Assigned at Date Recorded Female 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 Please disregard. documented in this encounter Plan of Treatment Upcoming Encounters Date Type Specialty Care Team Description 12/20/2021 Office Visit Wound Care Luis Camara DPM [address] [place], [place] [phone] (Wo rk) 01/21/2022 Office Visit Gastroenterology Juanis Levi [address] [place] [address] Luis Fernando Miles MD 516 [facility] 2A [place], [place] [address] documented as of this encounter Visit Diagnoses Diagnosis Opiate dependence (H) - Primary Opioid type dependence, unspecified ERRONEOUS ENCOUNTER--DISREGARD documented in this encounter Care Teams Rehabilitation Attendant Relationship Specialty Start Date End Date Edgar Alfredo MD PCP - General Family Practice 04/13/12 08/11/14 [address] [facility] 700 [place] [phone] documented as of this encounter
--- OUTSIDE RECORDS SUMMARY | 2021-12-05 19:33 | XMS_ITS | Encounter Summary ---
:1980 Author Organization [place] Address [facility] [place] [address] Care Team Providers Name Role Phone Edgar Alfredo MD Primary Care Provider System, Provider Not In Primary Care Provider Unavailable [facility], [facility] Primary Care Provide r Luis Fernando Magana Primary Care Provider [facility] Primary Care Provide r Tatyana Haas CAFETERIA COOK SENIOR AGRICULTURAL ASSISTANT Unavailable [phone] Stephani Pina CAFETERIA COOK SENIOR AGRICULTURAL ASSISTANT Unavailable [phone] Tatyana Haas CAFETERIA COOK SENIOR AGRICULTURAL ASSISTANT Unavailable [phone] Stephani Pina CAFETERIA COOK SENIOR AGRICULTURAL ASSISTANT Unavailable [phone] Juanis Levi Primary Care Provider Elsa Yeh RN Unavailable Unavailable Rogelio Treadwell MD Unavailable [phone] Luis CamaraM Unavailable [phone] Camryn Christina MD Unavailable Sintia Lange PA-C Unavailable Luis Fernando Miles MD Unavailable [phone] Reason for Visit Reason Onset Date Comments Erroneous encounter-disregard 04/27/2013 Encounter Details Date Type Department Care Team Description 04/27/2013 Telephone [employer] Edgar [facility] Ashly V[facility]SQUEZ encounter-disregard [address] [place] [address] (Wo rk) Social History Tobacco Use Types Packs/Day Years Used Date Smoking Tobacco: Every Day Cigarettes 0.1 10 Smokeless Tobacco: Never Comments: 5 cigarettes a day Alcohol Use Standard Drinks/Week Comments No 0 (1 standard drink = 0.6 oz pure alcoho l) Sex Assigned at Date Recorded Female 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/2020 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 11/07/201406/18 documented as of this encounter Care Teams Pool Table Mechanic Relationship Specialty Start Date End Date Edgar Alfredo, PCP - General Family Practice 04/13/1208/[address] [place] [address] System, Provider Not PCP - General Clinic 08/12/14 7 In [facility], [facility] PCP - General 07/14/[address] [id number] Luis Fernando Magana PCP - General Family Practice 12/07/16 01/19/[address] [id number] Clinic, [facility] PCP - General 01/20/[address] [id number] Juanis Levi PCP - General Addiction Medicine 06/29/[address] [place] [phone] Tatyana Haas, Assigned PCP 08/02/18 01/29/20 CAFETERIA COOK SENIOR AGRICULTURAL ASSISTANT [facility] [address] [facility] [address] [place], [place] [address] Stephani Pina, Assigned PCP 01/30/20 12/30/20 CAFETERIA COOK SENIOR AGRICULTURAL ASSISTANT [address] [place], [place] [address] Tatyana Haas, Assigned PCP 12/31/20 02/24/21 CAFETERIA COOK SENIOR AGRICULTURAL ASSISTANT [facility] [address] [facility] [address] [place], [place] [address] Stephani Pina, Assigned PCP 02/25/21 CAFETERIA COOK SENIOR AGRICULTURAL ASSISTANT [address] [place], [place] [address] Elsa Yeh, Registered Nurse Infectious Diseases 07/25/21 RN Rogelio Treadwell Assigned Musculoskeletal 08/04/21 MD August Provider [address] [place] [address] Luis Camara MD Podiatry 08/16/21 CALVIN Burnett [address] [place] [address] Camryn Christina Assigned Surgical 09/01/21 09/07/21 MD Lexie Provider 420 [facility] 195 [place] [address] Sintia Lange PA-C Assigned Surgical 09/08/21 909 [facility] 4TH [place] [address] Landon Warren MD Gastroenterology 11/21/21 MD Luis Fernando [address] [facility] [address] [place] [address] documented as of this encounter
--- OUTSIDE RECORDS SUMMARY | 2021-12-05 19:33 | XMS_ITS | Encounter Summary ---
:1980 Author Organization [place] Address Replaced by [facility] [place] [address] Care Team Providers Name Role Phone Edgar Alfredo MD Primary Care Provider Reason for Visit Reason Comments Recheck Medication PHQ9 Encounter Details Date Type Department Care Team Description 12/10/2012 Office Visit [facility] Edgar Alfredo Opiate de pendence (H) (Primary Dx); Clinic Ashly Gauthier MD Moderate major depression (H) [address] [facility] [address] [place] [phone] Social History Tobacco Use Types Packs/Day Years Used Date Smoking Tobacco: Every Day Cigarettes 0.1 10 Smokeless Tobacco: Never Comments: 5 cigarettes a day Alcohol Use Standard Drinks/Week Comments No 0 (1 standard drink = 0.6 oz pure alcoho l) Sex Assigned at Date Recorded Female 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 Caroline Colon, RN >> BRYNN PORTER [facility] Dec 10, 2012 5:20 PM Patient [...] completed using cuff size: regular Brynn Manish RESIDENT SERVICES COORDINATOR documented in this encounter Plan of Treatment Upcoming Encounters Date Type Specialty Care Team Description 12/20/2021 Office Visit Wound Care Luis Camara DPM [address] [place], [place] [phone] (Wo rk) 01/21/2022 Office Visit Gastroenterology Juanis Levi 2450 [place] [phone] Luis Fernando Miles MD 516 [facility] 2A [place] [address] documented as of this encounter Visit Diagnoses Diagnosis Opiate dependence (H) - Primary Opioid type dependence, unspecified Moderate major depression (H) Major depressive disorder, single episod e, moderate documented in this encounter Care Teams Industrial Electrical Engineer Relationship Specialty Start Date End Date Edgar Alfredo MD PCP - General Family Practice 04/13/12 08/11/14 [address] [facility] [address] [place] [phone] documented as of this encounter
--- OUTSIDE RECORDS SUMMARY | 2021-12-05 19:33 | XMS_ITS | Encounter Summary ---
:1980 Author Organization [place] Address [facility] [place] [address] Care Team Providers Name Role Phone Edgar Alfredo MD Primary Care Provider Reason for Visit Reason Comments Recheck Medication Encounter Details Date Type Department Care Team Description 01/07/2013 Office Visit [facility] Edgar Alfredo Opiate de pendence (H) (Primary Dx); Clinic Ashly Gauthier MD Moderate major depression (H) [address] [facility] [address] [facility] [address] [place] [phone] Social History Tobacco Use Types Packs/Day Years Used Date Smoking Tobacco: Every Day Cigarettes 0.1 10 Smokeless Tobacco: Never Comments: 5 cigarettes a day Alcohol Use Standard Drinks/Week Comments No 0 (1 standard drink = 0.6 oz pure alcoho l) Sex Assigned at Date Recorded Female 01/14/2020 10:57 AM DISTRIBUTION CENTER ASSISTANT documented as of this encounter Last Filed Vital Signs Vital Sign Reading Time Taken Comments Blood Pressure 114/69 01/07/2013 11:29 AM DISTRIBUTION CENTER ASSISTANT Pulse 78 01/07/2013 11:29 AM DISTRIBUTION CENTER ASSISTANT Temperature 36.4 ??C (97.6 ??F) 01/07/2013 11:29 AM DISTRIBUTION CENTER ASSISTANT Respiratory Rate - - Oxygen Saturation 98% 01/07/2013 11:29 AM DISTRIBUTION CENTER ASSISTANT Inhaled Oxygen Concentration - - Weight 69.4 kg (153 lb) 01/07/2013 11:29 AM DISTRIBUTION CENTER ASSISTANT Height 166.4 cm (5' 5.5) 01/07/2013 11:29 AM DISTRIBUTION CENTER ASSISTANT Body Mass Index 25.07 01/07/2013 11:29 AM DISTRIBUTION CENTER ASSISTANT documented in this encounter Progress Notes Edgar [...] relapse, and establishing a solid recovery program. RIBUTION CENTER ASSISTANT documented in this encounter Nursing Notes 01/07/2013 [...] Visit Wound Care Luis Camara, DPCamryn [address]09 [place], [place] [phone] (Wo rk) 01/21/2022 Office Visit Gastroenterology Juanis Levi [address] [place] [phone] Luis Fernando Miles MD 516 [facility] [place] [address] documented as of this encounter Visit Diagnoses Diagnosis Opiate dependence (H) - Primary Opioid type dependence, unspecified Moderate major depression (H) Major depressive disorder, single episod e, moderate documented in this encounter Care Teams Damage Cutter Relationship Specialty Start Date End Date Edgar Alfredo MD PCP - General Family Practice 04/13/12 6 [address] [place] [phone] documented as of this encounter
--- OUTSIDE RECORDS SUMMARY | 2021-12-05 19:33 | XMS_ITS | Encounter Summary ---
:1980 Author Organization [place] Address [facility] [place] [address] Care Team Providers Name Role Phone Edgar Alfredo MD Primary Care Provider Reason for Visit Reason Onset Date Comments Erroneous encounter-disregard 09/22/2012 Encounter Details Date Type Department Care Team Description 09/22/2012 [facility] Edgar Alfredo, Err oneous Clinic Ashly VÁSQUEZ encounter-disregard [address] [place] [address] [place] [address] [address] [place] [phone] (Wo rk) Social History Tobacco Use Types Packs/Day Years Used Date Smoking Tobacco: Every Day Cigarettes 0.5 10 Smokeless Tobacco: Never Alcohol Use Standard Drinks/Week Comments No 0 (1 standard drink = 0.6 oz pure alcoho l) Sex Assigned at Date Recorded Female 01/14/2020 10:57 AM VISUAL 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 documented as of this encounter Plan of Treatment Upcoming Encounters Date Type Specialty Care Team Description 12/20/2021 Office Visit Wound Care Luis Camara DPM [address]09 [place], [place] [phone] (Wo rk) 01/21/2022 Office Visit Gastroenterology Juanis Levi 2450 [place] [phone] Luis Fernando Miles MD 6 [facility] 2A [place], [place] [address] documented as of this encounter Visit Diagnoses Diagnosis Moderate major depression (H) - Primary Major depressive disorder, single episod e, moderate documented in this encounter Care Teams Pet Care Associate Relationship Specialty Start Date End Date Edgar Alfredo MD PCP - General Family Practice 04/13/12 08/11/[address] [place] [address] documented as of this encounter
--- OUTSIDE RECORDS SUMMARY | 2021-12-05 19:33 | XMS_ITS | Encounter Summary ---
:1980 Author Organization [place] Address [facility] [place] [address] Care Team Providers Name Role Phone Edgar Alfredo MD Primary Care Provider Reason for Visit Reason Onset Date Comments Refill Request 09/16/2012 bupropion Encounter Details Date Type Department Care Team Description 09/16/2012 Refill [facility] Edgar Alfredo, Ref ill Request Clinic Ashly VÁSQUEZ (bupropion ) [address] [facility] [address] [facility] [address] [place] [phone] (Wo rk) Social History Tobacco Use Types Packs/Day Years Used Date Smoking Tobacco: Every Day Cigarettes 0.5 10 Smokeless Tobacco: Never Alcohol Use Standard Drinks/Week Comments No 0 (1 standard drink = 0.6 oz pure alcoho l) Sex Assigned at Date Recorded Female 01/14/2020 10:57 AM CLINICAL DOCUMENTATION NURSE documented as of this encounter Miscellaneous [...] Visit Wound Care Luis Camara, [place] [address] [place], [place] [phone] (Wo rk) 01/21/2022 Office Visit Gastroenterology Juanis Levi [address] [place] [address] Luis Fernando Miles MD 516 [facility] 2A [place], [place] [address] documented as of this encounter Visit Diagnoses Diagnosis Moderate major depression (H) - Primary Major depressive disorder, single episod e, moderate documented in this encounter Care Teams Tattoo Identifier Relationship Specialty Start Date End Date Edgar Alfredo MD PCP - General Family Practice 04/13/12 08/11/14 [address] [facility] [address] [place] [address] documented as of this encounter
--- OUTSIDE RECORDS SUMMARY | 2021-12-05 19:33 | XMS_ITS | Encounter Summary ---
:1980 Author Organization [place] Address 24[address] [facility] [place] [address] Care Team Providers Name Role Phone Edgar Alfredo MD Primary Care Provider Encounter Details Date Type Department Care Team Description 02/15/2013 Orders Only [facility] Clinic Opi ate dependence (H) [facility] [address] [place] [address] [address] [place], [place] [phone] Social History Tobacco Use Types Packs/Day Years Used Date Smoking Tobacco: Every Day Cigarettes 0.1 10 Smokeless Tobacco: Never Comments: 5 cigarettes a day Alcohol Use Standard Drinks/Week Comments No 0 (1 standard drink = 0.6 oz pure alcoho l) Sex Assigned at Date Recorded Female 01/14/2020 10:57 AM IBM 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 documented as of this encounter Plan of Treatment Upcoming Encounters Date Type Specialty Care Team Description 12/20/2021 Office Visit Wound Care Luis Camara DPM 909 [place] [address] (Wo rk) 01/21/2022 Office Visit Gastroenterology Juanis Levi 2450 [place] [phone] Luis Fernando Miles MD 516 [facility] [place], [place] [phone] documented as of this encounter Procedures Procedure Name Priority Date/Time Associated Diagnosis Comme nts DRUG ABUSE SCREEN 6 Routine 02/15/2013 2:56 PM Opiate dependen ce Results for this CHEM DEP URINE [employer] 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 DEVELOPER (H) procedure are in ([facility]) the results section. documented in this encounter Results (ABNORMAL) Drug abuse screen 6 urine (chem dep) ([facility]) (02/15/2013 2:56 PM [employer] 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 DEVELOPER) Component Value Ref Test Analysis Performed Pathologis [...] benzodiazepine is 200 ng/mL or less . [facility] Cannabinoids Qual Negative NEG [facility] Urine Cutoff for a negative cannabinoid is 50 ng/mL or less. [facility] Cocaine Qual Positive NEG [facility] Urine Cutoff for a positive cocai ne is greater than 300 ng/mL. This is an unconfirmed [facility] screening result to be used for medical purposes only. LAB Testing performed using ToxSee method. (A) Ethanol Qual Negative NEG [facility] Urine Cutoff for a negative urine ethanol is 50 mg/dL or less. [facility] Opiates Negative NEG [facility] Qualitative Urine Cutoff for a negative opiate is 300 ng/mL or less. [facility] Specimen Anatomical Collection Method Collection Time Receive d Time (Source) Location / / Volume Laterality Urine specimen 02/15/2013 2:56 PM 013 3:01 (specimen) [employer] 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 DEVELOPER PM 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 DEVELOPER Edgar Alfredo MD LAB - URINE ORDERABLES Performing Organization Address City/State/ZIP Code Phon e Number [facility] [address] [facility] [place] [address] [facility] documented in this encounter Visit Diagnoses Diagnosis Opiate dependence (H) Opioid type dependence, unspecified documented in this encounter Care Teams Combined Rail Operator Relationship Specialty Start Date End Date Edgar Alfredo MD PCP - General Family Practice 04/13/12 08/11/[address] [place] [address] documented as of this encounter
--- OUTSIDE RECORDS SUMMARY | 2021-12-05 19:33 | XMS_ITS | Encounter Summary ---
:1980 Author Organization [place] Address 2450 [facility] [place] [address] Care Team Providers Name Role Phone Edgar Alfredo MD Primary Care Provider Reason for Visit Reason Onset Date Comments Recheck Medication Erroneous encounter-disregard 04/26/2013 Encounter Details Date Type Department Care Team Description 04/22/2013 Office Visit [facility] Edgar Alfredo ERRONEOUS Clinic Ashly Gauthier MD ENCOUNTER--DISREGARD [address] [place] (Primary Dx) [address] [place] [address] Social History Tobacco Use Types Packs/Day Years Used Date Smoking Tobacco: Every Day Cigarettes 0.1 10 Smokeless Tobacco: Never Comments: 5 cigarettes a day Alcohol Use Standard Drinks/Week Comments No 0 (1 standard drink = 0.6 oz pure alcoho l) Sex Assigned at Date Recorded Female 01/14/2020 10:57 AM CONSULTING SME documented as of this encounter Progress Notes Edgar Alfredo MD - 04/26/2013 11:27 AM CDT This encounter was opened in error. Please disregard. documented in this encounter Plan of Treatment Upcoming Encounters Date Type Specialty Care Team Description 12/20/2021 Office Visit Wound Care Luis Camara, [place] [address] [place] [address] (Wo rk) 01/21/2022 Office Visit Gastroenterology Juanis Levi [address] [place] [address] Luis Fernando Miles MD 516 [facility] 2[address] [place] [address] documented as of this encounter Visit Diagnoses Diagnosis ERRONEOUS ENCOUNTER--DISREGARD - Primary documented in this encounter Care Teams Lathe Sander Relationship Specialty Start Date End Date Edgar Alfredo MD PCP - General Family Practice 04/13/12 08/11/14 [address] [facility] [address] [place] [address] documented as of this encounter
--- OUTSIDE RECORDS SUMMARY | 2021-12-05 19:33 | XMS_ITS | Encounter Summary ---
:1980 Author Organization [place] Address 2450 [facility] [place] [address] Care Team Providers Name Role Phone Edgar Alfredo MD Primary Care Provider Reason for Visit Reason Onset Date Comments Recheck Medication Erroneous encounter-disregard 06/07/2013 Encounter Details Date Type Department Care Team Description 06/07/2013 Office Visit [facility] Edgar Alfredo ERRONEOUS Clinic Ashly Gauthier MD ENCOUNTER--DISREGARD [address] [place] (Primary Dx) [address] [place] [address] Social History Tobacco Use Types Packs/Day Years Used Date Smoking Tobacco: Every Day Cigarettes 0.1 10 Smokeless Tobacco: Never Comments: 5 cigarettes a day Alcohol Use Standard Drinks/Week Comments No 0 (1 standard drink = 0.6 oz pure alcoho l) Sex Assigned at Date Recorded Female 01/14/2020 10:57 AM SUPERINTENDENT MECHANICAL documented as of this encounter Progress Notes Edgar Alfredo MD - 06/07/2013 3:14 PM CDT This encounter was opened in error. Please disregard. documented in this encounter Plan of Treatment Upcoming Encounters Date Type Specialty Care Team Description 12/20/2021 Office Visit Wound Care Luis Camara, [place] [address] [place] [address] (Wo rk) 01/21/2022 Office Visit Gastroenterology Juanis Levi [address] [place] [address] Luis Fernando Miles MD 516 [facility] 2[address] [place] [address] documented as of this encounter Visit Diagnoses Diagnosis ERRONEOUS ENCOUNTER--DISREGARD - Primary documented in this encounter Care Teams Automotive Parts Specialist Relationship Specialty Start Date End Date Edgar Alfredo MD PCP - General Family Practice 04/13/12 08/11/[address] [facility] [address] [place] [address] documented as of this encounter
--- OUTSIDE RECORDS SUMMARY | 2021-12-05 19:33 | XMS_ITS | Encounter Summary ---
:1980 Author Organization [place] Address [address] [place] [address] Care Team Providers Name Role Phone Edgar Alfredo MD Primary Care Provider Reason for Visit Reason Onset Date Comments Recheck Medication Erroneous encounter-disregard 03/23/2013 Encounter Details Date Type Department Care Team Description 03/23/2013 Office Visit [facility] Edgar Alfredo ERRONEOUS Clinic Ashly Gauthier MD ENCOUNTER--DISREGARD [address] [place] (Primary Dx) [address] [place] [address] Social History Tobacco Use Types Packs/Day Years Used Date Smoking Tobacco: Every Day Cigarettes 0.1 10 Smokeless Tobacco: Never Comments: 5 cigarettes a day Alcohol Use Standard Drinks/Week Comments No 0 (1 standard drink = 0.6 oz pure alcoho l) Sex Assigned at Date Recorded Female 01/14/2020 10:57 AM FIELD TALENT QUALIFICATION SPECIALIST documented as of this encounter Progress Notes Edgar Alfredo MD - 03/23/2013 12:43 PM CST This encounter was opened in error. Please disregard. D TALENT QUALIFICATION SPECIALIST documented in this encounter Plan of Treatment Upcoming Encounters Date Type Specialty Care Team Description 12/20/2021 Office Visit Wound Care Luis Camara, [place] [address] [place] [address] (Wo rk) 01/21/2022 Office Visit Gastroenterology Juanis Levi [address]50 [place] [address] Luis Fernando Miles MD 516 [facility] 2[address] [place] [address] documented as of this encounter Visit Diagnoses Diagnosis ERRONEOUS ENCOUNTER--DISREGARD - Primary documented in this encounter Care Teams Electroplating Laborer Relationship Specialty Start Date End Date Edgar Alfredo MD PCP - General Family Practice 04/13/12 08/11/14 [address] [facility] [address] [place] [address] documented as of this encounter
--- OUTSIDE RECORDS SUMMARY | 2021-12-05 19:33 | XMS_ITS | Encounter Summary ---
:1980 Author Organization [place] Address [address]50 [facility] [place] [address] Care Team Providers Name Role Phone Edgar Alfredo MD Primary Care Provider Reason for Visit Reason Onset Date Comments Refill Request 04/22/2013 Subox bridge Encounter Details Date Type Department Care Team Description 04/22/2013 Refill [facility] Edgar Alfredo , Refill Request ([facility] MD lundberg) [address] [place] [phone] (Wo rk) Social History Tobacco Use Types Packs/Day Years Used Date Smoking Tobacco: Every Day Cigarettes 0.1 10 Smokeless Tobacco: Never Comments: 5 cigarettes a day Alcohol Use Standard Drinks/Week Comments No 0 (1 standard drink = 0.6 oz pure alcoho l) Sex Assigned at Date Recorded Female 01/14/2020 10:57 AM ENGINE GENERATOR ASSEMBLER documented as of this encounter Miscellaneous Notes Telephone Encounter - Noy Ulloa - 04/22/2013 4:18 PM CST Pt requesting bridge to cover her until 04/26. NE GENERATOR ASSEMBLER documented in this encounter Plan of Treatment Upcoming Encounters Date Type Specialty Care Team Description 12/20/2021 Office Visit Wound Care [place], Luis Lex, [place] [address] [place] [address] (Wo rk) 01/21/2022 Office Visit Gastroenterology Juanis Levi 2450 [place] [phone] Luis Fernando Miles MD 516 [facility] [address] [place], [place] [address] documented as of this encounter Visit Diagnoses Diagnosis Opiate dependence (H) - Primary Opioid type dependence, unspecified documented in this encounter Care Teams Occupational Medicine Officer Relationship Specialty Start Date End Date Edgar Alfredo MD PCP - General Family Practice 04/13/12 08/11/14 [address] [facility] [address] [place] [phone] documented as of this encounter
--- OUTSIDE RECORDS SUMMARY | 2021-12-05 19:33 | XMS_ITS | Encounter Summary ---
:1980 Author Organization [place] Address [facility] [place] [address] Care Team Providers Name Role Phone Edgar Alfredo MD Primary Care Provider Reason for Visit Reason Onset Date Comments Nurse Advice Line 11/28/2012 subutex Encounter Details Date Type Department Care Team Description 11/28/2012 Telephone [facility] Edgar Alfredo Nur se Advice Line Clinic Ashly VÁSQUEZ (subutex) [address] [facility] [address] [facility] [address] [place] [phone] (Wo rk) Social History Tobacco Use Types Packs/Day Years Used Date Smoking Tobacco: Every Day Cigarettes 0.1 10 Smokeless Tobacco: Never Comments: 5 cigarettes a day Alcohol Use Standard Drinks/Week Comments No 0 (1 standard drink = 0.6 oz pure alcoho l) Sex Assigned at Date Recorded Female 01/14/2020 10:57 AM ELECTRICIAN ELEVATOR MAINTENANCE documented as of this encounter Miscellaneous Notes Telephone Encounter - Albania Brewer - 11/28/2012 12:49 PM CDT FNA: Pt said she is out of Subutex. I checked EPIC and saw that 24 had been prescribed on 11/16 whichshould last her until 12/09. Caller said she has none left. I had page op page manager business continuity doctor to call pt at [phone]. Albania Brewer RN [facility] [phone] Telephone Encounter - Anthony Roger, RN - [...] Route to PCP clinic Anthony Roger RN [facility] documented in this encounter Plan of Treatment Upcoming Encounters Date Type Specialty Care Team Description 12/20/2021 Office Visit Wound Care Luis Camara DPM [address] [place] [address] (Wo rk) 01/21/2022 Office Visit Gastroenterology Juanis Levi 24[address] [place] [address] Luis Fernando Miles MD 516 [facility] [address] [place], [place] [address] documented as of this encounter Visit Diagnoses Not on filedocumented in this encounter Care Teams Neck Pinner Relationship Specialty Start Date End Date Edgar Alfredo MD PCP - General Family Practice 04/13/12 08/11/14 [address] [place] [address] documented as of this encounter
--- OUTSIDE RECORDS SUMMARY | 2021-12-05 19:33 | XMS_ITS | Encounter Summary ---
:1980 Author Organization [place] Address 2450 [facility] [place] [address] Care Team Providers Name Role Phone Edgar Alfredo MD Primary Care Provider Encounter Details Date Type Department Care Team Description 03/25/[address] [facility] Mando Hwang Opiate dependence (H) (Primary Dx); Clinic CONY Trejo Moderate major depression (H); [address] Anxiety [address] [place] [phone] Social History Tobacco Use Types Packs/Day Years Used Date Smoking Tobacco: Every Day Cigarettes 0.1 10 Smokeless Tobacco: Never Comments: 5 cigarettes a day Alcohol Use Standard Drinks/Week Comments No 0 (1 standard drink = 0.6 oz pure alcoho l) Sex Assigned at Date Recorded Female 01/14/2020 10:57 AM GEOGRAPHIC INFORMATION SYSTEM SURVEYOR documented as of this encounter Progress Notes Mando Hwang LMFT - 03/25/2013 3:39 PM CST [facility] Behavioral Health Clinician Progress Note Screening Brief Intervention Referral Treatment (SBIRT) March 25, 2013 Patient Name: Stephani Parker Service Type: Commercial [id number] (15-30 Minute SBIRT Screen And / Or [...] as Dr. Alfredo relocates his practice. This [facility] met with the patient in order to [...] due to a move she has discontinued. [facility] invited patient to establish primary healthcare services here if they have need or would like to, informed her of medically assisted treatment/suboxone support group that will be meeting weekly, and offered [facility] services now or in the future, as [...] a follow up appointment with the clinic [facility] as needed. CONY Muñoz, [facility] RAPHIC INFORMATION SYSTEM SURVEYOR documented in this encounter Plan of Treatment Upcoming Encounters Date Type Specialty Care Team Description 12/20/2021 Office Visit Wound Care Luis Camara, [place] [address] [place], [place] [phone] (Wo rk) 01/21/2022 Office Visit Gastroenterology Jaunis Levi [address] [place] [phone] Luis Fernando Miles MD 516 [facility] 2[facility] [place], [place] [address] documented as of this encounter Visit Diagnoses Diagnosis Opiate dependence (H) - Primary Opioid type dependence, unspecified Moderate major depression (H) Major depressive disorder, single episod e, moderate Anxiety Anxiety state, unspecified documented in this encounter Care Teams Enforcement Manager Relationship Specialty Start Date End Date Edgar Alfredo MD PCP - General Family Practice 04/13/12 08/11/14 [address] [facility] S [facility] 700 [place] [phone] documented as of this encounter
--- OUTSIDE RECORDS SUMMARY | 2021-12-05 19:33 | XMS_ITS | Encounter Summary ---
:1980 Author Organization [place] Address 2450 [place] [address] Care Team Providers Name Role Phone Edgar Alfredo MD Primary Care Provider Reason for Visit Reason Onset Date Comments Medication Request 05/31/2013 PA Encounter Details Date Type Department Care Team Description 05/31/2013 Telephone [facility] Edgar Alfredo, [facility] ication Request (PA) Clinic Ashly VÁSQUEZ [address] [place] [phone] (Wo rk) Social History Tobacco Use Types Packs/Day Years Used Date Smoking Tobacco: Every Day Cigarettes 0.1 10 Smokeless Tobacco: Never Comments: 5 cigarettes a day Alcohol Use Standard Drinks/Week Comments No 0 (1 standard drink = 0.6 oz pure alcoho l) Sex Assigned at Date Recorded Female 01/14/2020 10:57 AM ONCOLOGY ACCOUNT SPECIALIST documented as of this encounter Miscellaneous Notes Telephone Encounter - Suyapa Rodriguez CMA - 06/01/2013 12:22 PM CDT PA approval received and faxed to pharmacy Telephone Encounter - Suyapa Rodriguez CMA - 05/31/2013 4:53 PM CDT PA in process Telephone Encounter - Edgra Alfredo MD - 05/31/2013 3:53 PM CDT Please try to get PA; tell them she needs Subutex because she is breast feeding Subutex called in Telephone Encounter - Suyapa Rodriguez CMA - 05/31/2013 3:24 PM CDT Patient called and left VM message, could not get appt til next Friday, needs bridge until then. Pharmacy # [phone] Suyapa Rodriguez CMA, [facility] documented in this encounter Plan of Treatment Upcoming Encounters Date Type Specialty Care Team Description 12/20/2021 Office Visit Wound Care Luis Camara DPM 9[address] [place] [address] (Wo rk) 01/21/2022 Office Visit Gastroenterology Juanis Levi [address] [place] [phone] Luis Fernando Miles MD 516 [facility] 2A [place], [place] [address] documented as of this encounter Visit Diagnoses Diagnosis Opiate dependence (H) Opioid type dependence, unspecified documented in this encounter Care Teams Ceramic Painter Relationship Specialty Start Date End Date Edgar Alfredo MD PCP - General Family Practice 04/13/12 08/11/14 [address] [facility] 700 [place] [phone] documented as of this encounter
--- OUTSIDE RECORDS SUMMARY | 2021-12-05 19:33 | XMS_ITS | Encounter Summary ---
:1980 Author Organization [place] Address [facility] [place] [address] Care Team Providers Name Role Phone Edgar Alfredo MD Primary Care Provider Reason for Visit Reason Onset Date Comments Refill Request 02/24/2013 Encounter Details Date Type Department Care Team Description 02/24/2013 Refill [facility] Myles Llamas, Refill Request Ashly VÁSQUEZ [address] [facility] 606 [facility] [address] [place], [place] [phone] (Wo rk) Social History Tobacco Use Types Packs/Day Years Used Date Smoking Tobacco: Every Day Cigarettes 0.1 10 Smokeless Tobacco: Never Comments: 5 cigarettes a day Alcohol Use Standard Drinks/Week Comments No 0 (1 standard drink = 0.6 oz pure alcoho l) Sex Assigned at Date Recorded Female 01/14/2020 10:57 AM BIOINFORMATICIAN documented as of this encounter Miscellaneous Notes Telephone Encounter - Edgar Alfredo MD - 02/25/2013 11:45 AM CST 6 day bridge called to [facility] by phone NFORMATICIAN Telephone Encounter - Nancy Bowden - 02/25/2013 10:51 AM CST Routed to Dr. Alfredo on 02/24/13. Will f/u per his instructions prn. Nancy Kelley RN February 25, 2013 10:51 AM NFORMATICIAN Telephone Encounter - Sintia Colon - 02/24/2013 4:13 PM CST Pt called and I have advised her to call Dr. Alfredo's office ([phone]). She then called the front man again wondering if Dr. Llamas could fill the suboxone since Dr. Alfredo is out and he refilled it in the past. I informed her that technically Dr. Llamas and Dr. Alfredo do not work together anymore and Dr. Alfredo has to refill his patients meds. She out completely out today. Please review the order that is cued up. Sintia Colon RN NFORMATICIAN Telephone Encounter - April Mccauley - 02/24/2013 4:06 PM CST 1. Name of Med(s): suboxone 2. Last OV: 3. Current Dosage (if available): 4. Quantity Prescribed: 5. Prescribed Refills: 6. Si. Pharmacy: 8. [facility] off [address], suboxone current out NFORMATICIAN Telephone Encounter - Ryan Molina - 02/24/2013 4:01 PM CST Called and said she needs a refill for Subutex. Dr. Llamas only prescribe through today. She sees 03/01. She can be reached at [phone] NFORMATICIAN documented in this encounter Plan of Treatment Upcoming Encounters Date Type Specialty Care Team Description 12/20/2021 Office Visit Wound Care Luis Camara, [place] [address] [place] [phone] (Wo rk) 01/21/2022 Office Visit Gastroenterology Juanis Levi 2450 [place] [address] Luis Fernando Miles MD 516 [facility] 2[address] [place] [address] documented as of this encounter Visit Diagnoses Diagnosis Opiate dependence (H) - Primary Opioid type dependence, unspecified documented in this encounter Care Teams Mixing Plant Operator Relationship Specialty Start Date End Date Edgar Alfredo MD PCP - General Family Practice 04/13/12 08/11/14 [address] [facility] 700 [place] [phone] documented as of this encounter
--- OUTSIDE RECORDS SUMMARY | 2021-12-05 19:33 | XMS_ITS | Encounter Summary ---
:1980 Author Organization [place] Address 2450 [facility] [place] [address] Care Team Providers Name Role Phone Edgar Alfredo MD Primary Care Provider Reason for Visit Reason Onset Date Comments Call Back 02/03/2013 Encounter Details Date Type Department Care Team Description 02/03/2013 Telephone [facility] Nithya Alfredo MD Call Back [place] [address] [facility] [address] [place], [place] Suite [facility] [address] [place] [address] [phone] Social History Tobacco Use Types Packs/Day Years Used Date Smoking Tobacco: Every Day Cigarettes 0.1 10 Smokeless Tobacco: Never Comments: 5 cigarettes a day Alcohol Use Standard Drinks/Week Comments No 0 (1 standard drink = 0.6 oz pure alcoho l) Sex Assigned at Date Recorded Female 01/14/2020 10:57 AM PNEUMATIC TUBE FITTER documented as of this encounter Miscellaneous Notes Telephone Encounter - Chapis Diaz - 02/04/2013 9:52 AM CST Pt notified she will need us to confirm ride into clinic through her insurance.. To come in for testing. rx faxed. Chapis Diaz RN MATIC TUBE FITTER Telephone Encounter - Edgar Alfredo MD - 02/04/2013 9:48 AM CST Refilled 1 week supply; needs to come in for drug screen within 1 week before further refills MATIC TUBE FITTER Telephone Encounter - Sintia Colon - 02/03/2013 3:55 PM CST Please see note below. Last OV was on 01/07/2013, refilled 01/07/2013 #42. Pt unable to come in tomorrow, but she did scheduled for 03/[address]. Order cued up. Sintia Colon RN MATIC TUBE FITTER Telephone Encounter - April Mccauley - 02/03/2013 3:43 PM CST Patient called in stating that she has an appointment with tona tomorrow, 02/04/2013 bu is unable tocome at that time due to also needing to go to court, patient requesting a call back from tona to discuss next steps. Also subutex will be out tomorrow, phone number [phone] (new cellphone number). MATIC TUBE FITTER documented in this encounter Plan of Treatment Upcoming Encounters Date Type Specialty Care Team Description 12/20/2021 Office Visit Wound Care Luis Camara DPM [address] [place], [place] [address] (Wo rk) 01/21/2022 Office Visit Gastroenterology Juanis Levi [address] [place] [address] Luis Fernando Miles MD 516 [facility] 2A [place], [place] [address] documented as of this encounter Visit Diagnoses Diagnosis Opiate dependence (H) - Primary Opioid type dependence, unspecified documented in this encounter Care Teams Perfect Binder Setter Relationship Specialty Start Date End Date Edgar Alfredo MD PCP - General Family Practice 04/13/12 08/11/[address] [place] [phone] documented as of this encounter
--- OUTSIDE RECORDS SUMMARY | 2021-12-05 19:33 | XMS_ITS | Encounter Summary ---
:1980 Author Organization [place] Address 2450 [facility] [place] [address] Care Team Providers Name Role Phone Edgar Alfredo MD Primary Care Provider Reason for Visit Reason Onset Date Comments Medication Request 03/08/2013 Encounter Details Date Type Department Care Team Description 03/08/2013 Telephone [facility] Edgar Alfredo Ma rk, Medication Request Ashly VÁSQUEZ [address] [place] [address] (Wo rk) Social History Tobacco Use Types Packs/Day Years Used Date Smoking Tobacco: Every Day Cigarettes 0.1 10 Smokeless Tobacco: Never Comments: 5 cigarettes a day Alcohol Use Standard Drinks/Week Comments No 0 (1 standard drink = 0.6 oz pure alcoho l) Sex Assigned at Date Recorded Female 01/14/2020 10:57 AM FINISHING INSPECTOR documented as of this encounter Miscellaneous Notes Telephone Encounter - Edgar Alfredo MD - 03/08/2013 11:55 AM CST Missed appointment due to problems with medical transportation; not her fault Re-scheduled for 1 week 1 week bridge ordered SHING INSPECTOR Telephone Encounter - Violeta Hunter - 03/08/2013 11:32 AM CST Patient calling in. Needed to reschedule provider appointment originally scheduled for 03/08 does have an appointment scheduled for 03/15/13. Patient is calling to get a refill of her Subutex. Best number to reach patient - [phone] Thank you Violeta Knight Armament Repairer SHING INSPECTOR documented in this encounter Plan of Treatment Upcoming Encounters Date Type Specialty Care Team Description 12/20/2021 Office Visit Wound Care Luis Camara DPM 909 [place] [address] (Wo rk) 01/21/2022 Office Visit Gastroenterology Juanis Levi [address] [place] [phone] Luis Fernando Miles MD 516 [facility] 2A [place], [place] [address] documented as of this encounter Visit Diagnoses Diagnosis Opiate dependence (H) - Primary Opioid type dependence, unspecified documented in this encounter Care Teams Ladle Repairer Relationship Specialty Start Date End Date Edgar Alfredo MD PCP - General Family Practice 04/13/12 08/11/14 [address] [facility] [address] [place] [address] documented as of this encounter
--- OUTSIDE RECORDS SUMMARY | 2021-12-05 19:33 | XMS_ITS | Encounter Summary ---
:1980 Author Organization [place] Address 2450 [facility] [place] [address] Care Team Providers Name Role Phone Edgar Alfredo MD Primary Care Provider Reason for Visit Reason Comments No Show Encounter Details Date Type Department Care Team Description 05/25/[address] [facility] TONY Stout[facility] ROSLYN Patterson ENCOUNTER--DISREGARD [address] [place] (Primary Dx) [address] [place], [place] [address] [place] [address] [place], [place] [phone] [address] (Wo rk) Social History Tobacco Use Types Packs/Day Years Used Date Smoking Tobacco: Every Day Cigarettes 0.1 10 Smokeless Tobacco: Never Comments: 5 cigarettes a day Alcohol Use Standard Drinks/Week Comments No 0 (1 standard drink = 0.6 oz pure alcoho l) Sex Assigned at Date Recorded Female 01/14/2020 10:57 AM DEPOSIT REFUND CLERK documented as of this encounter Progress Notes Tania Trevino CMA - 05/26/2013 10:39 AM CDT NO show documented in this encounter Plan of Treatment Upcoming Encounters Date Type Specialty Care Team Description 12/20/2021 Office Visit Wound Care Luis Camara DPM 909 [facility] [address] [place], [place] [address] (Wo rk) 01/21/2022 Office Visit Gastroenterology Juanis Levi [address] [place] [phone] Luis Fernando Miles MD 516 [facility] 2A [place], [place] [phone] documented as of this encounter Visit Diagnoses Diagnosis ERRONEOUS ENCOUNTER--DISREGARD - Primary documented in this encounter Care Teams Associate Chief Nurse Relationship Specialty Start Date End Date Edgar Alfredo MD PCP - General Family Practice 04/13/12 08/11/14 [address] [facility] [address] [place] [phone] documented as of this encounter
--- OUTSIDE RECORDS SUMMARY | 2021-12-05 19:33 | XMS_ITS | Encounter Summary ---
:1980 Author Organization [place] Address 2450 [facility] [place] [address] Care Team Providers Name Role Phone Edgar Alfredo MD Primary Care Provider Encounter Details Date Type Department Care Team Description 05/28/2013 Medical Correspondence [facility] Edgar Alfredo MD Denial of Clinic Ashly Gauthier MD Buprenorphine [address]MG [address] 05/28/13 [address] [place] [address] [facility] [address] [place] [address] Social History Tobacco Use Types Packs/Day Years Used Date Smoking Tobacco: Every Day Cigarettes 0.1 10 Smokeless Tobacco: Never Comments: 5 cigarettes a day Alcohol Use Standard Drinks/Week Comments No 0 (1 standard drink = 0.6 oz pure alcoho l) Sex Assigned at Date Recorded Female 01/14/2020 10:57 AM VP COMMUNICATIONS documented as of this encounter Plan of Treatment Upcoming Encounters Date Type Specialty Care Team Description 12/20/2021 Office Visit Wound Care Luis Camara DPM [address] [place], [place] [address] (Wo rk) 01/21/2022 Office Visit Gastroenterology Juanis Levi [address] [place] [address] Luis Fernando Miles MD 516 [facility] [place], [place] [address] documented as of this encounter Visit Diagnoses Not on filedocumented in this encounter Care Teams Fire Code Inspector Relationship Specialty Start Date End Date Edgar Alfredo MD PCP - General Family Practice 04/13/12 08/11/14 606 [facility] [address] [facility] 700 [place] [address] documented as of this encounter
--- OUTSIDE RECORDS SUMMARY | 2021-12-05 19:33 | XMS_ITS | Encounter Summary ---
:1980 Author Organization [place] Address 2450 [facility] [place] [address] Care Team Providers Name Role Phone Edgar Alfredo MD Primary Care Provider Reason for Visit Reason Onset Date Comments Refill Request 03/23/2013 suboxone Encounter Details Date Type Department Care Team Description 03/23/2013 Refill [facility] Edgar Alfredo, Ref ill Request [facility] (suboxone) [address] [place] [place] [address] (Wo rk) Social History Tobacco Use Types Packs/Day Years Used Date Smoking Tobacco: Every Day Cigarettes 0.1 10 Smokeless Tobacco: Never Comments: 5 cigarettes a day Alcohol Use Standard Drinks/Week Comments No 0 (1 standard drink = 0.6 oz pure alcoho l) Sex Assigned at Date Recorded Female 01/14/2020 10:57 AM ORACLE BPM CONSULTANT documented as of this encounter Miscellaneous Notes Telephone Encounter - Suyapa Rodriguez - 03/24/2013 9:00 AM CST Tried to call patient, number below not good. Number in chart not good either. LE BPM CONSULTANT Telephone Encounter - Edgar Alfredo MD - 03/23/2013 2:52 PM CST Has missed too many appointments No refills until seen LE BPM CONSULTANT Telephone Encounter - Suyapa Rodriguez - 03/23/2013 2:34 PM CST Patient called, missed appt. today due to transportation not arriving. Rescheduled for this Thurs. Says she is out of suboxone, needs some to tide her over. She can be reached at [phone]. Suyapa Rodriguez, SPRING 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, ENTRY LEVEL SOFTWARE DEVELOPER LE BPM CONSULTANT documented in this encounter Plan of Treatment Upcoming Encounters Date Type Specialty Care Team Description 12/20/2021 Office Visit Wound Care Luis Camara, [place] 909 [facility] [place], [place] [address] (Wo rk) 01/21/2022 Office Visit Gastroenterology Juanis Levi [address] [place] [address] Luis Fernando Miles MD 516 [facility] 2A [place] [address] documented as of this encounter Visit Diagnoses Not on filedocumented in this encounter Care Teams Sanitary Landfill Supervisor Relationship Specialty Start Date End Date Edgar Alfredo MD PCP - General Family Practice 04/13/12 08/11/14 [address] [place] [phone] documented as of this encounter
--- OUTSIDE RECORDS SUMMARY | 2021-12-05 19:33 | XMS_ITS | Encounter Summary ---
:1980 Author Organization [place] Address 2450 [facility] [place] [address] Care Team Providers Name Role Phone Edgar Alfredo MD Primary Care Provider Reason for Visit Reason Onset Date Comments Refill Request 11/30/2012 Encounter Details Date Type Department Care Team Description 11/30/2012 Refill [facility] Nithya Alfredo MD Refill Request [place] [address] [facility] [address] [place] [address] Suite [facility] [address] [place] [address] [phone] Social History Tobacco Use Types Packs/Day Years Used Date Smoking Tobacco: Every Day Cigarettes 0.1 10 Smokeless Tobacco: Never Comments: 5 cigarettes a day Alcohol Use Standard Drinks/Week Comments No 0 (1 standard drink = 0.6 oz pure alcoho l) Sex Assigned at Date Recorded Female 01/14/2020 10:57 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 Camacho on Edwin: [phone] documented in this encounter Plan of Treatment Upcoming Encounters Date Type Specialty Care Team Description 12/20/2021 Office Visit Wound Care Luis Camara DPM 909 [place] [address] (Wo rk) 01/21/2022 Office Visit Gastroenterology Juanis Levi 2450 [place] [phone] Luis Fernando Miles MD 516 [facility] [address] [place] [address] documented as of this encounter Visit Diagnoses Not on filedocumented in this encounter Care Teams Dump Truck Driver Off Highway Relationship Specialty Start Date End Date Edgar Alfredo MD PCP - General Family Practice 04/13/12 08/11/14 [address] [facility] [facility] 700 [place] [phone] documented as of this encounter
--- OUTSIDE RECORDS SUMMARY | 2021-12-05 19:33 | XMS_ITS | Encounter Summary ---
:1980 Author Organization [place] Address [address] [facility] [place] [address] Care Team Providers Name Role Phone Edgar Alfredo MD Primary Care Provider Reason for Visit Reason Onset Date Comments Medication Request 05/17/2013 Encounter Details Date Type Department Care Team Description 05/17/2013 Telephone [facility] Edgar Alfredo Ma rk, Medication Request Ashly VÁSQUEZ [address] [place] [address] [place] [address] (Wo rk) Social History Tobacco Use Types Packs/Day Years Used Date Smoking Tobacco: Every Day Cigarettes 0.1 10 Smokeless Tobacco: Never Comments: 5 cigarettes a day Alcohol Use Standard Drinks/Week Comments No 0 (1 standard drink = 0.6 oz pure alcoho l) Sex Assigned at Date Recorded Female 01/14/2020 10:57 AM MARKET 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 TY Crista Peoples, Hone Operator Telephone Encounter - Edgar Alfredo MD - 05/17/2013 2:52 PM CDT Advised appointment 05/31/13 4 day bridge ordered Telephone Encounter - Natasha Lee - 05/17/2013 12:11 PM CDT Pt called clinic. Pt stated that she can not make her about today due to thyroid issues and would like a Bridge until her next appt. Pt can be reached at [phone] documented in this encounter Plan of Treatment Upcoming Encounters Date Type Specialty Care Team Description 12/20/2021 Office Visit Wound Care Luis Camara DPM [address] [place], [place] [address] (Wo rk) 01/21/2022 Office Visit Gastroenterology Juanis Levi 2450 [place] [phone] Luis Fernando Miles MD [address] [id number] documented as of this encounter Visit Diagnoses Diagnosis Opiate dependence (H) - Primary Opioid type dependence, unspecified documented in this encounter Care Teams Drill Press Operator For Metal Relationship Specialty Start Date End Date Edgar Alfredo MD PCP - General Family Practice 04/13/12 08/11/[address] [place] [address] [address] [place] [address] documented as of this encounter
--- OUTSIDE RECORDS SUMMARY | 2021-12-05 19:33 | XMS_ITS | Encounter Summary ---
:1980 Author Organization [place] Address [address] [facility] [place] [address] Care Team Providers Name Role Phone Edgar Alfredo MD Primary Care Provider Reason for Visit Reason Comments Recheck Medication Encounter Details Date Type Department Care Team Description 03/25/2013 Office Visit [facility] Edgar Alfredo pendence (H) Clinic Ashly Gauthier MD (Primary Dx) [address] [place] [address] [place] [address] Social History Tobacco Use Types Packs/Day Years Used Date Smoking Tobacco: Every Day Cigarettes 0.1 10 Smokeless Tobacco: Never Comments: 5 cigarettes a day Alcohol Use Standard Drinks/Week Comments No 0 (1 standard drink = 0.6 oz pure alcoho l) Sex Assigned at Date Recorded Female 01/14/2020 10:57 AM SCRAP 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 TO SEE [facility]. P METAL COLLECTOR documented in this encounter Nursing Notes 03/25/2013 3:00 PM CST >> SUYAPA MURRAY Zoe Mar 25, 2013 3:08 PM Patient presents with: Recheck Medication Initial BP 142/74 Pulse 84 Estimated Body mass index is 25.06 kg/(m^2) as calculated from the following: Height as of 01/07/13: 5' 5.5(1.664 m). Weight as of 01/07/13: 153 lb(69.4 kg). BP completed using cuff size: large Suyapa Murray, MILL 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, CUT OUT STITCHER documented in this encounter Plan of Treatment Upcoming Encounters Date Type Specialty Care Team Description 12/20/2021 Office Visit Wound Care Luis Camara DPM [address] [place] [address] (Wo rk) 01/21/2022 Office Visit Gastroenterology Juanis Levi 6[address] [place] [address] Luis Fernando Miles MD 595 [facility] 2A [place] [address] documented as of this encounter Procedures Procedure Name Priority Date/Time Associated Diagnosis Comme nts SEND OUTS MISC TEST Routine 03/26/2013 3:45 PM Re sults for this SCRAP METAL COLLECTOR procedure are i n the results section. DRUG ABUSE SCREEN Routine 03/25/2013 3:47 PM Opiate dependence Results for this (NL, RW) SCRAP METAL COLLECTOR (H) procedure are i n the results section. documented in this encounter Results Send outs misc test (03/26/2013 3:45 PM SCRAP METAL COLLECTOR) [facility] gist Method Time Signature Test Name BUPRENORPHINE [facility] Send Outs Urine [facility] Misc Test Specimen Result Negative [facility] Normal Range Negative [facility] for Send Outs Misc Test Specimen Anatomical Collection Method Collection Time Receive d Time (Source) Location / / Volume Laterality 03/26/2013 3:45 PM 4 3:53 SCRAP METAL COLLECTOR PM SCRAP METAL COLLECTOR Edgar Alfredo MD LAB - BLOOD ORDERABLES Performing Organization Address City/[facility] Phon e Number [address] PRIMARY CARE Building [address] [facility] Drug abuse screen (NL, RW) (03/25/2013 3:47 PM SCRAP METAL COLLECTOR) [facility] Method Time Signature Methamphetamine Negative [facility] [...] specimen 03/25/2013 3:47 PM 014 3:52 (specimen) SCRAP METAL COLLECTOR PM SCRAP METAL COLLECTOR Edgar Alfredo MD LAB - URINE ORDERABLES Performing Organization Address City/[facility]/ZIP Code Phon e Number [place], [place] [phone] [place] [address] PRIMARY CARE Building [address] [facility] documented in this encounter Visit Diagnoses Diagnosis Opiate dependence (H) - Primary Opioid type dependence, unspecified documented in this encounter Care Teams Fisher Terrapin Relationship Specialty Start Date End Date Edgar Alfredo MD PCP - General Family Practice 04/13/12 08/11/14 [address] [place] [phone] documented as of this encounter
--- OUTSIDE RECORDS SUMMARY | 2021-12-05 19:33 | XMS_ITS | Encounter Summary ---
:1980 Author Organization [place] Address [address] [place] [address] Care Team Providers Name Role Phone Edgar Alfredo MD Primary Care Provider Encounter Details Date Type Department Care Team Description 03/01/2013 Telephone [facility] Nithya Alfredo MD [place] [address] [facility] [address] [place], [place] [address] [address] [place] [address] [phone] Social History Tobacco Use Types Packs/Day Years Used Date Smoking Tobacco: Every Day Cigarettes 0.1 10 Smokeless Tobacco: Never Comments: 5 cigarettes a day Alcohol Use Standard Drinks/Week Comments No 0 (1 standard drink = 0.6 oz pure alcoho l) Sex Assigned at Date Recorded Female 01/14/2020 10:57 AM SENIOR PRODUCT 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 OR PRODUCT DEVELOPMENT ENGINEER documented in this encounter Plan of Treatment Upcoming Encounters Date Type Specialty Care Team Description 12/20/2021 Office Visit Wound Care Luis Camara, DPM 9[address] [place], [place] [address] (Wo rk) 01/21/2022 Office Visit Gastroenterology Juanis Levi 2450 [place] [phone] Luis Fernando Miles MD 516 [facility] [address]A [place], [place] [phone] documented as of this encounter Visit Diagnoses Diagnosis Opiate dependence (H) - Primary Opioid type dependence, unspecified documented in this encounter Care Teams Clinical Cytogenetics Director Relationship Specialty Start Date End Date Edgar Alfredo MD PCP - General Family Practice 04/13/12 6 [address] [facility] [address] [place] [phone] documented as of this encounter
--- OUTSIDE RECORDS SUMMARY | 2021-12-05 19:33 | XMS_ITS | Encounter Summary ---
:1980 Author Organization [place] Address [address] [facility] [place] [address] Care Team Providers Name Role Phone Edgar Alfredo MD Primary Care Provider Reason for Visit Reason Onset Date Comments Recheck Medication Erroneous encounter-disregard 04/29/2013 Encounter Details Date Type Department Care Team Description 04/26/2013 Office Visit [facility] Edgar Alfredo ERRONEOUS Clinic Ashly Gauthier MD ENCOUNTER--DISREGARD [address] [place] (Primary Dx) [address] [place] [phone] Social History Tobacco Use Types Packs/Day Years Used Date Smoking Tobacco: Every Day Cigarettes 0.1 10 Smokeless Tobacco: Never Comments: 5 cigarettes a day Alcohol Use Standard Drinks/Week Comments No 0 (1 standard drink = 0.6 oz pure alcoho l) Sex Assigned at Date Recorded Female 01/14/2020 10:57 AM PRINT 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 Please disregard. documented in this encounter Plan of Treatment Upcoming Encounters Date Type Specialty Care Team Description 12/20/2021 Office Visit Wound Care Luis Camara, [place] 9[address] [place] [address] (Wo rk) 01/21/2022 Office Visit Gastroenterology Juanis Levi 2450 [place] [address] Luis Fernando Miles MD 516 [facility] 2A [place] [address] documented as of this encounter Visit Diagnoses Diagnosis ERRONEOUS ENCOUNTER--DISREGARD - Primary documented in this encounter Care Teams Digital Traffic Coordinator Relationship Specialty Start Date End Date Edgar Alfredo MD PCP - General Family Practice 04/13/12 08/11/14 [address] [facility] [address] [place] [address] documented as of this encounter
--- OUTSIDE RECORDS SUMMARY | 2021-12-05 19:34 | XMS_ITS | Encounter Summary ---
:1980 Author Organization [place] Address [address] [facility] [place] [address] Care Team Providers Name Role Phone Edgar Alfredo MD Primary Care Provider Encounter Details Date Type Department Care Team Description 07/20/2012 Telephone [facility] Nithya Alfredo MD [place] [address] [place] [address] [place] [address] [address] [address] [place] [address] [phone] Social History Tobacco Use Types Packs/Day Years Used Date Smoking Tobacco: Every Day Cigarettes 0.5 10 Smokeless Tobacco: Never Alcohol Use Standard Drinks/Week Comments No 0 (1 standard drink = 0.6 oz pure alcoho l) Sex Assigned at Date Recorded Female 01/14/2020 10:57 AM DENTAL LABORATORY MANAGER documented as of this encounter Miscellaneous Notes Telephone Encounter - Sintia Colon - 07/20/2012 1:27 PM CDT Aaliyah, pharmacist from [facility], called to figure out Dr. Alfredo's game plan regarding suboxone. Patient is having now. Call transferred to Dr. Alfredo. Sintia Colon RN documented in this encounter Plan of Treatment Upcoming Encounters Date Type Specialty Care Team Description 12/20/2021 Office Visit Wound Care Luis Camara, [place] 9[address] [place] [address] (Wo rk) 01/21/2022 Office Visit Gastroenterology Juanis Levi [address] [facility] [place] [address] Luis Fernando Miles MD 516 [facility] 2[address] [place] [address] documented as of this encounter Visit Diagnoses Not on filedocumented in this encounter Care Teams De Alcholizer Relationship Specialty Start Date End Date Edgar Alfredo MD PCP - General Family Practice 04/13/12 6 [address] [facility] S [address] [place] [address] documented as of this encounter
--- OUTSIDE RECORDS SUMMARY | 2021-12-05 19:34 | XMS_ITS | Encounter Summary ---
:1980 Author Organization [place] Address [address] [facility] [place] [address] Care Team Providers Name Role Phone Edgar Alfredo MD Primary Care Provider Reason for Visit Reason Onset Date Comments Call Back 07/14/2012 Encounter Details Date Type Department Care Team Description 07/14/2012 Telephone [facility] Nithya Alfredo MD Call Back Rescue 606 [facility] [address] [place], [place] [address] [facility] [address] [place] [address] [phone] Social History Tobacco Use Types Packs/Day Years Used Date Smoking Tobacco: Every Day Cigarettes 0.5 10 Smokeless Tobacco: Never Alcohol Use Standard Drinks/Week Comments No 0 (1 standard drink = 0.6 oz pure alcoho l) Sex Assigned at Date Recorded Female 01/14/2020 10:57 AM ICHTHYOLOGY TEACHER documented as of this encounter Miscellaneous [...] Fraga - 07/14/2012 1:46 PM CDT Pt ([phone]) calling again, states pharmacy would not fill [...] Script for subutex was faxed to the [facility] in [place]. Telephone Encounter - Edgar Alfredo MD - 07/14/2012 10:58 AM CDT Took more than prescribed; now has one left; for breech 07/20/12 Advised 2 mg per day until 07/19/12 Appointment here after 5 Subutex ordered Telephone Encounter - Tigist Fraga - 07/14/2012 9:50 AM CDT Pt ([phone]) calling, states her dosage for subutex was [...] Visit Wound Care Luis Camara DPM 909 [place] [address] (Wo rk) 01/21/2022 Office Visit Gastroenterology Juanis Levi 2450 [place] [phone] Luis Fernando Miles MD 516 [facility] 2A [place], [place] [address] documented as of this encounter Visit Diagnoses Diagnosis Opiate dependence (H) - Primary Opioid type dependence, unspecified documented in this encounter Care Teams Firearms Model Maker Relationship Specialty Start Date End Date Edgar Alfredo MD PCP - General Family Practice 04/13/12 08/11/14 [address] [facility] 700 [place] [phone] documented as of this encounter
--- OUTSIDE RECORDS SUMMARY | 2021-12-05 19:34 | XMS_ITS | Encounter Summary ---
:1980 Author Organization [place] Address [address] [facility] [place] [address] Care Team Providers Name Role Phone None, Bfp Primary Care Provider Unavailable Reason for Visit Reason Onset Date Comments Refill Request 02/04/2012 Encounter Details Date Type Department Care Team Description 02/04/2012 Refill [facility] Nithya Carbone MD Refill Request [place] [address] [place] [address] [address] [place] [address] [phone] [place] [address] [phone] Social History Tobacco Use Types Packs/Day Years Used Date Smoking Tobacco: Every Day Cigarettes 0.5 10 Smokeless Tobacco: Never Alcohol Use Standard Drinks/Week Comments No 0 (1 standard drink = 0.6 oz pure alcoho l) Sex Assigned at Date Recorded Female 01/14/2020 10:57 AM CIVIL LABORATORY TECHNICIAN documented as of this encounter Miscellaneous Notes Telephone Encounter - Sintia Colon - 02/05/2012 12:45 PM CST Medication faxed. Tried to call the number listed below, mailbox full. Sintia Colon RN L LABORATORY TECHNICIAN Telephone Encounter - Tigist Fraga - 02/05/2012 12:41 PM CST Pt calling re rx, informed pt of refill, pt has appt tomorrow 02-06-12, pt would like to use [facility], , fax [phone]. L LABORATORY TECHNICIAN Telephone Encounter - Edgar Carbone MD - 02/05/2012 12:17 PM CST Refilled Needs appointment Need pharm # L LABORATORY TECHNICIAN Telephone Encounter - Victoria Grant - 02/05/2012 10:06 AM CST Pt requesting we send script to [facility] in [place] [address] Please call pt at [phone] with any additional concerns/questions. Pt has been out of medication for 2 days. L LABORATORY TECHNICIAN Telephone Encounter - Chapis Diaz - 02/04/2012 2:52 PM CST Not on nursing protocol, unable to fill medication. Please fill if appropriate. Need pharmacy info-dr carbone not in office the rest of today or tomorrow. Chapis Diaz RN L LABORATORY TECHNICIAN Telephone Encounter - April Mccauley - 02/04/2012 2:21 PM CST Patient called in requesting a refill on her SUBUTEX prescription, patient can be reached via voicemail at phone number [phone] (home phone is voicemail only, please leave detailed voicemail here for pt to return call). L LABORATORY TECHNICIAN documented in this encounter Plan of Treatment Upcoming Encounters Date Type Specialty Care Team Description 12/20/2021 Office Visit Wound Care Luis Camara, [place] [address] [place] [address] (Wo rk) 01/21/2022 Office Visit Gastroenterology Juanis Levi 2450 [place] [address] Luis Fernando Miles MD 516 [facility] 2A [place], [place] [address] documented as of this encounter Visit Diagnoses Diagnosis Opiate dependence (H) - Primary Opioid type dependence, unspecified documented in this encounter Care Teams Retail Salesperson Relationship Specialty Start Date End Date None, Bfp PCP - General 03/02/99 04/12/12 documented as of this encounter
--- OUTSIDE RECORDS SUMMARY | 2021-12-05 19:34 | XMS_ITS | Encounter Summary ---
:1980 Author Organization [place] Address [facility]0 [place] [address] Care Team Providers Name Role Phone Edgar Alfredo MD Primary Care Provider Reason for Visit Reason Onset Date Comments RECHECK PHQ9-PCP patient nee ds DAP/letters Erroneous encounter-disregard 07/26/2012 Encounter Details Date Type Department Care Team Description 07/23/2012 Office Visit [facility] Edgar Alfredo Moderate major depression (H) (Primary Dx); Clinic Ashly Gauthier MD ERRONEOUS ENCOUNTER--DISREGARD [address] [place] [address] [place] [address] [address] [place] [address] Social History Tobacco Use Types Packs/Day Years Used Date Smoking Tobacco: Every Day Cigarettes 0.5 10 Smokeless Tobacco: Never Alcohol Use Standard Drinks/Week Comments No 0 (1 standard drink = 0.6 oz pure alcoho l) Sex Assigned at Date Recorded Female 01/14/2020 10:57 AM DIESEL LOCOMOTIVE FIRER/FIREMAN documented as of this encounter Progress Notes Edgar Alfredo MD - 07/26/2012 1:05 PM CDT This encounter was opened in error. Please disregard. documented in this encounter Plan of Treatment Upcoming Encounters Date Type Specialty Care Team Description 12/20/2021 Office Visit Wound Care Luis Camara, [place] [address] [place] [address] (Wo rk) 01/21/2022 Office Visit Gastroenterology Juanis Levi 2450 [place] [address] Luis Fernando Miles MD 516 [facility] [place], [place] [address] documented as of this encounter Visit Diagnoses Diagnosis Moderate major depression (H) - Primary Major depressive disorder, single episod e, moderate ERRONEOUS ENCOUNTER--DISREGARD documented in this encounter Care Teams Architectural Design Lecturer Relationship Specialty Start Date End Date Edgar Alfredo MD PCP - General Family Practice 04/13/12 08/11/14 [address] [facility] [address] [place] [phone] documented as of this encounter
--- OUTSIDE RECORDS SUMMARY | 2021-12-05 19:34 | XMS_ITS | Encounter Summary ---
:1980 Author Organization [place] Address [facility] [place] [address] Care Team Providers Name Role Phone Edgar Alfredo MD Primary Care Provider Reason for Visit Reason Comments RECHECK PHQ9- PCP patient due for DA P/letters Recheck Medication she would like to talk about her antidepressant. Encounter Details Date Type Department Care Team Description 09/15/2012 Office Visit [facility] Edgar Alfredo Moderate major depression (H) (Primary Dx); Clinic Ashly Gauthier MD Opiate dependence (H); [address] [place] [address] [place] [address] [address] [place] [phone] Social History Tobacco Use Types Packs/Day Years Used Date Smoking Tobacco: Every Day Cigarettes 0.5 10 Smokeless Tobacco: Never Alcohol Use Standard Drinks/Week Comments No 0 (1 standard drink = 0.6 oz pure alcoho l) Sex Assigned at Date Recorded Female 01/14/2020 10:57 AM DAY CARE SUPERVISOR documented as of this encounter Last [...] Script for subutex was faxed to the [facility]. >> ADELINE MASSEY FriSep 15, 2012 [...] 909 [facility] [place], [place] [phone] (Wo rk) 01/21/2022 Office Visit Gastroenterology Juanis Levi 2450 [place] [address] Luis Fernando Miles MD 516 [facility] [place], [place] [address] documented as of this encounter Visit Diagnoses Diagnosis Moderate major depression (H) - Primary Major depressive disorder, single episod e, moderate Opiate dependence (H) Opioid type dependence, unspecified Anxiety Anxiety state, unspecified documented in this encounter Care Teams Surgeon Partner Relationship Specialty Start Date End Date Edgar Alfredo MD PCP - General Family Practice 04/13/12 08/11/14 [address] [place] [phone] documented as of this encounter
--- OUTSIDE RECORDS SUMMARY | 2021-12-05 19:34 | XMS_ITS | Encounter Summary ---
:1980 Author Organization [place] Address [facility]0 [place] [address] Care Team Providers Name Role Phone None, Bfp Primary Care Provider Unavailable Reason for Visit Reason Onset Date Comments RECHECK please ask about rec ent PAP date Erroneous encounter-disregard 02/07/2012 Encounter Details Date Type Department Care Team Description 02/06/2012 Office Visit [facility] Edgar Alfredo ERRONEOUS Clinic Ashly Gauthier MD ENCOUNTER--DISREGARD [address] [facility] [address] [facility] (Primary Dx) [address] [place] [phone] Social History Tobacco Use Types Packs/Day Years Used Date Smoking Tobacco: Every Day Cigarettes 0.5 10 Smokeless Tobacco: Never Alcohol Use Standard Drinks/Week Comments No 0 (1 standard drink = 0.6 oz pure alcoho l) Sex Assigned at Date Recorded Female 01/14/2020 10:57 AM BUCKRAM SEWER documented as of this encounter Progress Notes Edgar Alfredo MD - 02/07/2012 9:51 PM CST This encounter was opened in error. Please disregard. RAM SEWER documented in this encounter Plan of Treatment Upcoming Encounters Date Type Specialty Care Team Description 12/20/2021 Office Visit Wound Care Luis Camara [place] [address] [place], [place] [address] (Wo rk) 01/21/2022 Office Visit Gastroenterology Juanis Levi 2450 [place] [phone] Luis Fernando Miles MD 516 [facility] 2A [place], [place] [address] documented as of this encounter Visit Diagnoses Diagnosis ERRONEOUS ENCOUNTER--DISREGARD - Primary documented in this encounter Care Teams Prepared Foods Supervisor Relationship Specialty Start Date End Date None, Bfp PCP - General 03/02/99 04/12/12 documented as of this encounter
--- OUTSIDE RECORDS SUMMARY | 2021-12-05 19:34 | XMS_ITS | Encounter Summary ---
:1980 Author Organization [place] Address [address] [facility] [place] [address] Care Team Providers Name Role Phone None, Bfp Primary Care Provider Unavailable Reason for Visit Reason Onset Date Comments Refill Request 01/21/2012 Encounter Details Date Type Department Care Team Description 01/21/2012 Refill [facility] Nithya Alfredo MD Refill Request [address] [place] [address] [address] [phone] [place] [address] [phone] Social History Tobacco Use Types Packs/Day Years Used Date Smoking Tobacco: Every Day Cigarettes 0.5 10 Smokeless Tobacco: Never Alcohol Use Standard Drinks/Week Comments No 0 (1 standard drink = 0.6 oz pure alcoho l) Sex Assigned at Date Recorded Female 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 PA is being submitted to [facility], as [facility] has denied PA its not the patient's insurance. Sintia Colon RN CAR REPAIRER Telephone Encounter - Sintia Colon - 01/21/2012 10:07 AM CST PA is being requesting for subutex. Patient was on suboxone, is now so needs to be on subutex. PA faxed. Sintia Colon RN CAR REPAIRER documented in this encounter Plan of Treatment Upcoming Encounters Date Type Specialty Care Team Description 12/20/2021 Office Visit Wound Care Luis Camara DPM 909 [place], [place] [phone] (Wo rk) 01/21/2022 Office Visit Gastroenterology Juanis Levi 2450 [place] [address] Luis Fernando Miles MD 516 [facility] 2A [place], [place] [phone] documented as of this encounter Visit Diagnoses Not on filedocumented in this encounter Care Teams Cargo Station Worker Relationship Specialty Start Date End Date None, Bfp PCP - General 03/02/99 04/12/12 documented as of this encounter
--- OUTSIDE RECORDS SUMMARY | 2021-12-05 19:34 | XMS_ITS | Encounter Summary ---
:1980 Author Organization [place] Address [facility] [place] [address] Care Team Providers Name Role Phone Edgar Alfredo MD Primary Care Provider Encounter Details Date Type Department Care Team Description 05/18/2012 External Order [facility] Edgar Alfredo, Results Clinic Ashly VÁSQUEZ [address] [place] [address] [place] [address] [address] [place] [phone] (Wo rk) Social History Tobacco Use Types Packs/Day Years Used Date Smoking Tobacco: Every Day Cigarettes 0.5 10 Smokeless Tobacco: Never Alcohol Use Standard Drinks/Week Comments No 0 (1 standard drink = 0.6 oz pure alcoho l) Sex Assigned at Date Recorded Female 01/14/2020 10:57 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 [address]A [place] [address] documented as of this encounter Procedures Procedure Name Priority Date/Time Associated Diagnosis Comme nts ABSTRACT PAP (HIM Routine 05/18/2012 Results fo r this EXTERNAL RESULT) procedure a re in the results section . documented in this encounter Results (ABNORMAL) ABSTRACT PAP-NO CHARGE (05/18/2012) Narrative MISYS - 05/18/2012 Pt reports [facility] [place], results abnormal, recheck one year. ??Pt Reported GIOVANNA Letter Sent Patient Reported LAB - HIM EXTERNAL RESULT Performing Organization Address City/State/ZIP Code Phon e Number MISYS documented in this encounter Visit Diagnoses Not on filedocumented in this encounter Care Teams Supply Chain Tech Relationship Specialty Start Date End Date Edgar Alfredo MD PCP - General Family Practice 04/13/12 08/11/[address] [place] [address] documented as of this encounter
--- OUTSIDE RECORDS SUMMARY | 2021-12-05 19:34 | XMS_ITS | Encounter Summary ---
:1980 Author Organization [place] Address [address] [facility] [place] [address] Care Team Providers Name Role Phone Edgar Alfredo MD Primary Care Provider Reason for Visit Reason Onset Date Comments Nurse Advice Line 06/09/2012 Encounter Details Date Type Department Care Team Description 06/09/[address] 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 documented as of this encounter Miscellaneous Notes Telephone Encounter - Chapis Diaz - 07/02/2012 3:09 PM CDT Old encounter closed Chapis Diaz RN Telephone Encounter - Chapis Diaz - 06/09/2012 2:38 PM CDT Plan doesn't cover subutex will call for dl [phone] Number [phone] [place]/info over phone will fax us decision Pending pa--called in already today--they will fax us today Their decision Chapis Diaz RN documented in this encounter Plan of Treatment Upcoming Encounters Date Type Specialty Care Team Description 12/20/2021 Office Visit Wound Care Luis Camara, [place] 909 [place], [place] [phone] (Wo rk) 01/21/2022 Office Visit Gastroenterology Juanis Levi 2450 [place] [address] Luis Fernando Miles MD 516 [facility] 2A [place], [place] [address] documented as of this encounter Visit Diagnoses Not on filedocumented in this encounter Care Teams Running Specialist Relationship Specialty Start Date End Date Edgar Alfredo MD PCP - General Family Practice 04/13/12 08/11/14 606 24[address] [facility] [address] [place] [address] documented as of this encounter
--- OUTSIDE RECORDS SUMMARY | 2021-12-05 19:34 | XMS_ITS | Encounter Summary ---
:1980 Author Organization [place] Address [address] [facility] [place] [address] Care Team Providers Name Role Phone Edgar Alfredo MD Primary Care Provider Reason for Visit Reason Onset Date Comments Medication Request 06/30/2012 Encounter Details Date Type Department Care Team Description 06/30/2012 Telephone [facility] Edgar Alfredo Ma rk, Medication Request Ashly VÁSQUEZ 606 24[facility] [address] [place] [address] [address] [place] [phone] (Wo rk) Social History Tobacco Use Types Packs/Day Years Used Date Smoking Tobacco: Every Day Cigarettes 0.5 10 Smokeless Tobacco: Never Alcohol Use Standard Drinks/Week Comments No 0 (1 standard drink = 0.6 oz pure alcoho l) Sex Assigned at Date Recorded Female 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 Telephone Encounter - Chapis Diaz - 06/30/2012 [...] filled it already. Please call pt at [phone] documented in this encounter Plan of Treatment Upcoming Encounters Date Type Specialty Care Team Description 12/20/2021 Office Visit Wound Care Luis Camara DPM 909 [place], [place] [address] (Wo rk) 01/21/2022 Office Visit Gastroenterology Juanis Levi 2450 [place] [phone] Luis Fernando Miles MD 516 [facility] 2A [place], [place] [address] documented as of this encounter Visit Diagnoses Not on filedocumented in this encounter Care Teams Jacker Feeder Relationship Specialty Start Date End Date Edgar Alfredo MD PCP - General Family Practice 04/13/12 08/11/14 606 24[address] [facility] S [facility] 700 [place] [phone] documented as of this encounter
--- OUTSIDE RECORDS SUMMARY | 2021-12-05 19:34 | XMS_ITS | Encounter Summary ---
:1980 Author Organization [place] Address [facility] [place] [address] Care Team Providers Name Role Phone Edgar Alfredo MD Primary Care Provider Reason for Visit Reason Onset Date Comments Prior Authorization 05/20/2012 suboxone Encounter Details Date Type Department Care Team Description 05/20/2012 Telephone [facility] Edgar Alfredo Prior [facility] Ashly Gauthier MD (suboxone) 606 24th [facility] [address] [place] [address] [address] [place] [address] Social History Tobacco Use Types Packs/Day Years Used Date Smoking Tobacco: Every Day Cigarettes 0.5 10 Smokeless Tobacco: Never Alcohol Use Standard Drinks/Week Comments No 0 (1 standard drink = 0.6 oz pure alcoho l) Sex Assigned at Date Recorded Female 01/14/2020 10:57 AM MATCH MARKER documented as of this encounter Miscellaneous Notes [...] Luis Camara DPM [address] [place], [place] [phone] (Wo rk) 01/21/2022 Office Visit Gastroenterology Juanis Levi 2450 [facility] [address] Luis Fernando Miles MD 516 [facility] [place], [place] [phone] documented as of this encounter Visit Diagnoses Not on filedocumented in this encounter Care Teams Polisher Numeral Relationship Specialty Start Date End Date Edgar Alfredo MD PCP - General Family Practice 04/13/12 08/11/14 606 24TH [facility] 700 [place] [address] documented as of this encounter
--- OUTSIDE RECORDS SUMMARY | 2021-12-05 19:34 | XMS_ITS | Encounter Summary ---
:1980 Author Organization [place] Address [facility] [place] [address] Care Team Providers Name Role Phone None, Bfp Primary Care Provider Unavailable Reason for Visit Reason Onset Date Comments RECHECK PAP date Erroneous encounter-disregard 03/30/2012 Encounter Details Date Type Department Care Team Description 03/30/2012 Office Visit [facility] Edgar Alfredo ERRONEOUS Clinic Ashly Gauthier MD ENCOUNTER--DISREGARD [address] [address] [place] [address] (Primary Dx) [address] [place] [phone] Social History Tobacco Use Types Packs/Day Years Used Date Smoking Tobacco: Every Day Cigarettes 0.5 10 Smokeless Tobacco: Never Alcohol Use Standard Drinks/Week Comments No 0 (1 standard drink = 0.6 oz pure alcoho l) Sex Assigned at Date Recorded Female 01/14/2020 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 Please disregard. JOINTER FEEDER documented in this encounter Plan of Treatment Upcoming Encounters Date Type Specialty Care Team Description 12/20/2021 Office Visit Wound Care Luis Camara, [place] 909 [place] [address] (Wo rk) 01/21/2022 Office Visit Gastroenterology Juanis Levi 2450 [place] [phone] Luis Fernando Miles MD 516 [facility] 2A [place] [address] documented as of this encounter Visit Diagnoses Diagnosis ERRONEOUS ENCOUNTER--DISREGARD - Primary documented in this encounter Care Teams Desizing Machine Operator Relationship Specialty Start Date End Date None, Bfp PCP - General 03/02/99 04/12/12 documented as of this encounter
--- OUTSIDE RECORDS SUMMARY | 2021-12-05 19:34 | XMS_ITS | Encounter Summary ---
:1980 Author Organization [place] Address [facility]0 [facility] [place] [address] Care Team Providers Name Role Phone Edgar Alfredo MD Primary Care Provider Reason for Visit Reason Onset Date Comments Refill Request 09/15/2012 Bupropion Hcl ER (SR ) 150 mg Encounter Details Date Type Department Care Team Description 09/15/2012 Refill [facility] Edgar Alfredo, Ref ill Request Clinic Ashly VÁSQUEZ (Bupropion Hcl ER (SR) [address] [facility] [address] [place] 150 mg) [facility] 813 700 [place] [phone] (Wo rk) Social History Tobacco Use Types Packs/Day Years Used Date Smoking Tobacco: Every Day Cigarettes 0.5 10 Smokeless Tobacco: Never Alcohol Use Standard Drinks/Week Comments No 0 (1 standard drink = 0.6 oz pure alcoho l) Sex Assigned at Date Recorded Female 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 Marycarmen Spence RN Telephone Encounter - Nini Zheng RPH - 09/16/2012 3:15 PM CDT Will forward to . PHQ-9 is greater than 5. Nini Zheng, PharmD [facility] [phone] Telephone Encounter - Juanis Machuca - 09/15/2012 12:38 PM CDT Patient leaving town 09/18/12. Requesting to get refill before she leaves. Last Fill Date: 06/09/2012 Last Fill Quantity: 60 Last Office Visit: 09/15/2012 Date of Last PHQ-9 score: 09/15/2012 Last PHQ-9 score on record= 6 AST 31 04/10/2010 ALT 41 04/10/2010 Thanks, Juanis Machuca, [facility] [address] [place], [place] [address]e. [address] [place] [address] documented in this encounter Plan of Treatment Upcoming Encounters Date Type Specialty Care Team Description 12/20/2021 Office Visit Wound Care Luis Camara DPM 909 [place] [address] (Wo rk) 01/21/2022 Office Visit Gastroenterology Juanis Levi 2450 [place] [phone] Luis Fernando Miles MD 516 [facility] 2A [place] [address] documented as of this encounter Visit Diagnoses Diagnosis Moderate major depression (H) - Primary Major depressive disorder, single episod e, moderate documented in this encounter Care Teams Varnish Inspector Relationship Specialty Start Date End Date Edgar Alfredo MD PCP - General Family Practice 04/13/12 08/11/14 [address] [place] [address] documented as of this encounter
--- OUTSIDE RECORDS SUMMARY | 2021-12-05 19:34 | XMS_ITS | Encounter Summary ---
:1980 Author Organization [place] Address [facility] [place] [address] Care Team Providers Name Role Phone Edgar Alfredo MD Primary Care Provider Reason for Visit Reason Onset Date Comments Symptoms 07/22/2012 withdrawal from subo xone Encounter Details Date Type Department Care Team Description 07/22/2012 Telephone [facility] Edgar Alfredo, Sym ptoms (withdrawal Clinic Ashly VÁSQUEZ from suboxone ) 606 24[address] [facility] [address] 24[address] [facility] [address] [place] [address] (Wo rk) Social History Tobacco Use Types Packs/Day Years Used Date Smoking Tobacco: Every Day Cigarettes 0.5 10 Smokeless Tobacco: Never Alcohol Use Standard Drinks/Week Comments No 0 (1 standard drink = 0.6 oz pure alcoho l) Sex Assigned at Date Recorded Female 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 Alfredo (pager # [phone]).I did tell patient this plan, who then [...] Care Luis Camara DPM 909 [place], [place] [address] (Wo rk) 01/21/2022 Office Visit Gastroenterology Juanis Levi 2450 [place] [phone] Luis Fernando Miles MD [address] [phone] documented as of this encounter Visit Diagnoses Not on filedocumented in this encounter Care Teams Loan Associate Relationship Specialty Start Date End Date Edgar Alfredo MD PCP - General Family Practice 04/13/12 08/11/14 [address] [facility] 700 [place] [address] documented as of this encounter
--- OUTSIDE RECORDS SUMMARY | 2021-12-05 19:34 | XMS_ITS | Encounter Summary ---
:1980 Author Organization [place] Address 2450 [facility] [place] [address] Care Team Providers Name Role Phone None, Bfp Primary Care Provider Unavailable Reason for Visit Reason Comments RECHECK Encounter Details Date Type Department Care Team Description 12/05/[address] 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 >> GIOVANNI HART [facility] Dec 05, 2011 1:45 PM Patient presents with: RECHECK Initial BP 144/58 Pulse 90 Ht 5' 5.5 (1.664 m) Wt 171 lb (77.565 kg) BMI 28.02 kg/m2 QoU037% Estimated Body mass index is 28.02 kg/(m^2) as calculated from the following: Height as of this encounter: 5' 5.5(1.664 m). Weight as of this encounter: 171 lb(77.565 kg).. BP completed using cuff size: regular Giovanni Hart MA documented in this encounter Plan of Treatment Upcoming Encounters Date Type Specialty Care Team Description 12/20/2021 Office Visit Wound Care Luis Camara, [place] [address] [place] [address] (Wo rk) 01/21/2022 Office Visit Gastroenterology Juanis Levi 2450 [place] [address] Luis Fernando Miles MD 516 [facility] 2A [place] [address] documented as of this encounter Visit Diagnoses Diagnosis Opiate dependence (H) - Primary Opioid type dependence, unspecified documented in this encounter Care Teams Metallurgical Lab Technician Relationship Specialty Start Date End Date None, Bfp PCP - General 03/02/99 04/12/12 documented as of this encounter
--- OUTSIDE RECORDS SUMMARY | 2021-12-05 19:34 | XMS_ITS | Encounter Summary ---
:1980 Author Organization [place] Address [facility] [place] [address] Care Team Providers Name Role Phone Edgar Workman MD Primary Care Provider Reason for Visit Reason Onset Date Comments Medication Request 08/14/2012 Encounter Details Date Type Department Care Team Description 08/14/2012 Telephone [facility] Edgar Workman Ma rk, Medication Request Ashly VÁSQUEZ 606 24[facility] [address] [place] [address] [address] [place] [phone] (Wo rk) Social History Tobacco Use Types Packs/Day Years Used Date Smoking Tobacco: Every Day Cigarettes 0.5 10 Smokeless Tobacco: Never Alcohol Use Standard Drinks/Week Comments No 0 (1 standard drink = 0.6 oz pure alcoho l) Sex Assigned at Date Recorded Female 01/14/2020 10:57 AM 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 Telephone Encounter - Marycarmen Spence - 08/17/2012 [...] Current Dosage (if available): 8mg 3) Pharmacy: [facility] in [place] 1) Name of Med(s): wellburtin 2) Current Dosage (if available): 150MG 3) Pharmacy: [facility] in [place] Please call pt at [phone] with any additiona questions/concerns. documented in this encounter Plan of Treatment Upcoming Encounters Date Type Specialty Care Team Description 12/20/2021 Office Visit Wound Care Luis Camara DPM 909 [facility] [address] (Wo rk) 01/21/2022 Office Visit Gastroenterology Juanis Levi 2450 [place] [phone] Luis Fernando Miles MD 516 [facility] 2[facility] [place], [place] [address] documented as of this encounter Visit Diagnoses Diagnosis Moderate major depression (H) - Primary Major depressive disorder, single episod e, moderate Opiate dependence (H) Opioid type dependence, unspecified documented in this encounter Care Teams Lace Pinner Relationship Specialty Start Date End Date Edgar Workman MD PCP - General Family Practice 04/13/12 08/11/14 [address] [facility] 700 [place] [phone] documented as of this encounter
--- OUTSIDE RECORDS SUMMARY | 2021-12-05 19:34 | XMS_ITS | Encounter Summary ---
:1980 Author Organization [place] Address 2450 [facility] [place] [address] Care Team Providers Name Role Phone Edgar Alfredo MD Primary Care Provider Reason for Visit Reason Onset Date Comments Refill Request 04/30/2012 Encounter Details Date Type Department Care Team Description 04/30/2012 Refill [facility] Nithya Alfredo MD Refill Request [place] [address] [facility] [address] [place] [address] Suite [facility] [address] [place] [phone] Social History Tobacco Use Types Packs/Day Years Used Date Smoking Tobacco: Every Day Cigarettes 0.5 10 Smokeless Tobacco: Never Alcohol Use Standard Drinks/Week Comments No 0 (1 standard drink = 0.6 oz pure alcoho l) Sex Assigned at Date Recorded Female 01/14/2020 10:57 AM OPTIONS TRADER documented as of this encounter Miscellaneous Notes Telephone Encounter - Madonna Cody - 04/30/2012 3:22 PM CDT Script for subutex was [facility]ed to the [facility] [place]. Telephone Encounter - Sintia Colon - 04/30/2012 [...] be left. Please let her know status at:[phone]. documented in this encounter Plan of Treatment Upcoming Encounters Date Type Specialty Care Team Description 12/20/2021 Office Visit Wound Care Luis Camara DPM 909 [place] [address] (Wo rk) 01/21/2022 Office Visit Gastroenterology Juanis Levi 4130 [place] [address] Luis Fernando Miles MD [address] [address] documented as of this encounter Visit Diagnoses Diagnosis Opiate dependence (H) - Primary Opioid type dependence, unspecified documented in this encounter Care Teams Fiberglass Product Tester Relationship Specialty Start Date End Date Edgar Alfredo MD PCP - General Family Practice 04/13/12 08/11/[address] [address] documented as of this encounter
--- OUTSIDE RECORDS SUMMARY | 2021-12-05 19:34 | XMS_ITS | Encounter Summary ---
:1980 Author Organization [place] Address [address] [facility] [place] [address] Care Team Providers Name Role Phone Edgar Alfredo MD Primary Care Provider Reason for Visit Reason Comments Recheck Medication Encounter Details Date Type Department Care Team Description 06/09/2012 Office Visit [facility] Edgar Alfredo Opiate de pendence (H) Clinic Ashly Gauthier MD (Primary Dx) [address] [facility] [address] [facility] [address] [place] [phone] Social History Tobacco Use Types Packs/Day Years Used Date Smoking Tobacco: Every Day Cigarettes 0.5 10 Smokeless Tobacco: Never Alcohol Use Standard Drinks/Week Comments No 0 (1 standard drink = 0.6 oz pure alcoho l) Sex Assigned at Date Recorded Female 01/14/2020 10:57 AM CPAS documented as of this encounter Last Filed [...] Body Mass Index 26.22 04/10/2012 4:20 PM CPAS documented in this encounter Progress Notes Edgar [...] Script for subutex was faxed to the [facility]. >> ROSALINE VAZQUEZ FriJun 09, 2012 11:29 AM Please abstract the following data from this visit with this patient into the appropriate field in Epic: Pap smear done on this date: 05/30 (approximately), by this group: [facility], results were Abnormal, will recheck in [...] completed using cuff size: regular Rosaline Vazquez BUSINESS TECHNOLOGY TEACHER documented in this encounter Plan of Treatment Upcoming Encounters Date Type Specialty Care Team Description 12/20/2021 Office Visit Wound Care Luis Camara DPM [address] [place], [place] [address] (Wo rk) 01/21/2022 Office Visit Gastroenterology Juanis Levi [address] [place] [address] Luis Fernando Miles MD 516 [facility] 2A [place] [address] documented as of this encounter Visit Diagnoses Diagnosis Opiate dependence (H) - Primary Opioid type dependence, unspecified documented in this encounter Care Teams Protective Officer Relationship Specialty Start Date End Date Edgar Alfredo MD PCP - General Family Practice 04/13/12 08/11/[address] [place] [address] documented as of this encounter
--- OUTSIDE RECORDS SUMMARY | 2021-12-05 19:34 | XMS_ITS | Encounter Summary ---
:1980 Author Organization [place] Address [address] [facility] [place] [address] Care Team Providers Name Role Phone Edgar lAfredo MD Primary Care Provider Reason for Visit Reason Onset Date Comments Refill Request 04/24/2012 Encounter Details Date Type Department Care Team Description 04/24/2012 Refill [facility] Nithya Alfredo MD Refill Request Opp [address] [facility] [address] [place] [address] Suite [facility] [address] [place] [address] [phone] Social History Tobacco Use Types Packs/Day Years Used Date Smoking Tobacco: Every Day Cigarettes 0.5 10 Smokeless Tobacco: Never Alcohol Use Standard Drinks/Week Comments No 0 (1 standard drink = 0.6 oz pure alcoho l) Sex Assigned at Date Recorded Female 01/14/2020 10:57 AM FAMILY DINNER SERVICE SPECIALIST documented as of this encounter Miscellaneous Notes Telephone Encounter - Marycarmen Spence - 04/24/2012 2:36 PM CST Wellbutrin request routed to provider to review, per computer chart this medication looks like it may have been discontinued. Marycarmen Spence RN LY DINNER SERVICE SPECIALIST Telephone Encounter - Tigist Fraga - 04/24/2012 2:21 PM CST Pt ([phone]) calling, requesting a refill for wellbutrin for today, states she is out. Camacho [place] as listed in [facility]. LY DINNER SERVICE SPECIALIST documented in this encounter Plan of Treatment Upcoming Encounters Date Type Specialty Care Team Description 12/20/2021 Office Visit Wound Care Luis Camara, [place] [address] [place], [place] [address] (Wo rk) 01/21/2022 Office Visit Gastroenterology Juanis Levi [address] [place] [address] Luis Fernando Miles MD 516 [facility] [place], [place] [address] documented as of this encounter Visit Diagnoses Diagnosis Moderate major depression (H) - Primary Major depressive disorder, single episod e, moderate documented in this encounter Care Teams Community Living Instructor Relationship Specialty Start Date End Date Edgar Alfredo MD PCP - General Family Practice 04/13/12 08/11/14 [address] [facility] [address] [place] [phone] documented as of this encounter
--- OUTSIDE RECORDS SUMMARY | 2021-12-05 19:34 | XMS_ITS | Encounter Summary ---
:1980 Author Organization [place] Address [facility] [place] [address] Care Team Providers Name Role Phone None, Bfp Primary Care Provider Unavailable Reason for Visit Reason Onset Date Comments Medication Request 02/21/2012 Encounter Details Date Type Department Care Team Description 02/21/2012 Telephone [facility] Edgar Alfredo Ma rk, Medication Request Ashly VÁSQUEZ [address] [place] [address] [place] [address] [address] [place] [address] (Wo rk) Social History Tobacco Use Types Packs/Day Years Used Date Smoking Tobacco: Every Day Cigarettes 0.5 10 Smokeless Tobacco: Never Alcohol Use Standard Drinks/Week Comments No 0 (1 standard drink = 0.6 oz pure alcoho l) Sex Assigned at Date Recorded Female 01/14/2020 10:57 AM BOX STORAGE WORKER documented as of this encounter Miscellaneous Notes Telephone Encounter - Madonna Cody - 02/21/2012 3:38 PM CST Script was faxed to the [facility]. STORAGE WORKER Telephone Encounter - Edgar Alfredo MD - 02/21/2012 3:26 PM CST 6 tabs ordered STORAGE WORKER Telephone Encounter - Chapis Diaz - 02/21/2012 2:38 PM CST Not on nursing protocol, unable to fill medication. Please fill if appropriate. Chapis Diaz RN STORAGE WORKER Telephone Encounter - Madonna Cody - 02/21/2012 2:28 PM CST Stephani only has one subutex left and she made an appointment with you for next and wondering if you could refill her prescription until she comes in. She said that its the Cub that is in her file. If any questions she can be reached at [phone]. STORAGE WORKER documented in this encounter Plan of Treatment Upcoming Encounters Date Type Specialty Care Team Description 12/20/2021 Office Visit Wound Care Luis Camara DPM [address] [place], [place] [address] (Wo rk) 01/21/2022 Office Visit Gastroenterology Juanis Levi [address] [place] [phone] Luis Fernando Miles MD [address] [address] documented as of this encounter Visit Diagnoses Diagnosis Opiate dependence (H) - Primary Opioid type dependence, unspecified documented in this encounter Care Teams Bill Poster Installer Relationship Specialty Start Date End Date None, Bfp PCP - General 03/02/99 04/12/12 documented as of this encounter
--- OUTSIDE RECORDS SUMMARY | 2021-12-05 19:34 | XMS_ITS | Encounter Summary ---
:1980 Author Organization [place] Address [facility]0 [facility] [place] [address] Care Team Providers Name Role Phone None, Bfp Primary Care Provider Unavailable Reason for Visit Reason Onset Date Comments RECHECK please ask about rec ent PAP date Erroneous encounter-disregard 02/27/2012 Encounter Details Date Type Department Care Team Description 02/27/2012 Office Visit [facility] Edgar Alfredo ERRONEOUS Clinic Ashly Gauthier MD ENCOUNTER--DISREGARD [address] [facility] [address] [facility] (Primary Dx) [address] [place] [address] Social History Tobacco Use Types Packs/Day Years Used Date Smoking Tobacco: Every Day Cigarettes 0.5 10 Smokeless Tobacco: Never Alcohol Use Standard Drinks/Week Comments No 0 (1 standard drink = 0.6 oz pure alcoho l) Sex Assigned at Date Recorded Female 01/14/2020 10:57 AM PROGRAM FACILITATOR documented as of this encounter Progress Notes Edgar Alfredo MD - 02/27/2012 5:34 PM CST This encounter was opened in error. Please disregard. This encounter was opened in error. Please disregard. RAM FACILITATOR documented in this encounter Plan of Treatment Upcoming Encounters Date Type Specialty Care Team Description 12/20/2021 Office Visit Wound Care Luis Camara DPM [address] [place] [address] (Wo rk) 01/21/2022 Office Visit Gastroenterology Juanis Levi [address] [place] [address] Luis Fernando Miles MD 516 [facility] 2A [place], [place] [address] documented as of this encounter Visit Diagnoses Diagnosis ERRONEOUS ENCOUNTER--DISREGARD - Primary documented in this encounter Care Teams Kitchen Steward/Stewardess Relationship Specialty Start Date End Date None, Bfp PCP - General 03/02/99 04/12/12 documented as of this encounter
--- OUTSIDE RECORDS SUMMARY | 2021-12-05 19:34 | XMS_ITS | Encounter Summary ---
:1980 Author Organization [place] Address [address] [facility] [place] [address] Care Team Providers Name Role Phone Edgar Alfredo MD Primary Care Provider Reason for Visit Reason Onset Date Comments Refill Request 05/19/2012 Encounter Details Date Type Department Care Team Description 05/19/[address] [facility] Nithya Alfredo MD Refill Request [place] [address] [facility] [address] [place] [address] [address] [facility] [address] [place] [address] [phone] Social History Tobacco Use Types Packs/Day Years Used Date Smoking Tobacco: Every Day Cigarettes 0.5 10 Smokeless Tobacco: Never Alcohol Use Standard Drinks/Week Comments No 0 (1 standard drink = 0.6 oz pure alcoho l) Sex Assigned at Date Recorded Female 01/14/2020 10:57 AM GUARD MANAGER documented as of this encounter Miscellaneous [...] Fraga - 05/19/2012 2:05 PM CDT Pt ([phone]) calling, scheduled appt for med check for 06-09-12, states she has enough subutex until May 26 or , would like a rx for 05-26-12 that would cover until appt 06-09. [facility] [place] as listed in Epic. documented in this encounter Plan of Treatment Upcoming Encounters Date Type Specialty Care Team Description 12/20/2021 Office Visit Wound Care Luis Camara, [place] [address] [place] [address] (Wo rk) 01/21/2022 Office Visit Gastroenterology Juanis Levi [address] [facility] [place] [address] Luis Fernando Miles MD [address] [facility] 2A [place], [place] [address] documented as of this encounter Visit Diagnoses Diagnosis Opiate dependence (H) - Primary Opioid type dependence, unspecified documented in this encounter Care Teams Global Analytics Head Relationship Specialty Start Date End Date Edgar Alfredo MD PCP - General Family Practice 04/13/12 08/11/14 [address] [place] [address] documented as of this encounter
--- OUTSIDE RECORDS SUMMARY | 2021-12-05 19:34 | XMS_ITS | Encounter Summary ---
:1980 Author Organization [place] Address [address] [place] [address] Care Team Providers Name Role Phone None, Bfp Primary Care Provider Unavailable Reason for Visit Reason Comments Recheck Medication Encounter Details Date Type Department Care Team Description 01/02/2012 Office Visit [facility] Edgar Alfredo de pendence (H) (Primary Dx); Clinic Ashly Gauthier MD complicated by chemical depend ency, antepartum (H); [address] [facility] Vitamin B12 deficiency (non anaemic) [address] [place] [phone] Social History Tobacco Use Types Packs/Day Years Used Date Smoking Tobacco: Every Day Cigarettes 0.5 10 Smokeless Tobacco: Never Alcohol Use Standard Drinks/Week Comments No 0 (1 standard drink = 0.6 oz pure alcoho l) Sex Assigned at Date Recorded Female 01/14/2020 10:57 AM RETURNED CASE INSPECTOR documented as of this encounter Last Filed Vital Signs Vital Sign Reading Time Taken Comments Blood Pressure 108/58 01/02/2012 3:34 PM RETURNED CASE INSPECTOR Pulse 109 01/02/2012 3:34 PM RETURNED CASE INSPECTOR Temperature - - Respiratory Rate - - Oxygen Saturation 99% 01/02/2012 3:34 PM RETURNED CASE INSPECTOR Inhaled Oxygen Concentration - - Weight 73.5 kg (162 lb) 01/02/2012 3:34 PM RETURNED CASE INSPECTOR Height 166.4 cm (5' 5.5) 01/02/2012 3:34 PM RETURNED CASE INSPECTOR Body Mass Index 26.55 01/02/2012 3:34 PM RETURNED CASE INSPECTOR documented in this encounter Progress Notes Edgar [...] relapse, and establishing a solid recovery program. RNED CASE INSPECTOR documented in this encounter Nursing Notes 01/02/2012 3:45 PM CST >> FERN MARINELLI Zoe Jan 02, 2012 4:02 PM Script for subutex 8mg and subutex 2mg was faxed to the [facility]. >> GIOVANNI HART Zoe Jan 02, [...] Wound Care [place] Luislaurel Burnett, [place] [address] [place] [address] (Wo rk) 01/21/2022 Office Visit Gastroenterology Juanis Levi [address] [facility] [place] [address] Luis Fernando Miles MD 516 [facility] [address] [place], [place] [address] documented as of this encounter Procedures Procedure Name Priority Date/Time Associated Diagnosis Comme nts DRUG ABUSE SCREEN 6 Routine 01/02/2012 4:01 PM Opiate dependen ce Results for this CHEM DEP URINE RETURNED CASE INSPECTOR (H) procedure are in ([facility]) the results section. documented in this encounter Results Drug abuse screen 6 urine (chem dep) ([facility]) (01/02/2012 4:01 PM RETURNED CASE INSPECTOR) Component Value Ref Test Analysis Performed At [facility] gist Range Method Time Signature Amphetamine Qual Negative NEG [facility] Urine Cutoff for a negative amphetamine is 500 ng/mL or less. [facility] Barbiturates Qual Negative NEG [facility] Urine Cutoff for a negative barbiturate is 200 ng/mL or less. [facility] Benzodiazepine Negative NEG [facility] Qual Urine Cutoff for a negative benzodiazepine is 200 ng/mL or less . [facility] Cannabinoids Qual Negative NEG [facility] Urine Cutoff for a negative cannabinoid is 50 ng/mL or less. [facility] Cocaine Qual Negative NEG [facility] Urine Cutoff for a negative cocaine is 300 ng/mL or less. [facility] Ethanol Qual Negative NEG [facility] Urine Cutoff for a negative urine ethanol is 50 mg/dL or less. [facility] Opiates Negative NEG [facility] Qualitative Urine Cutoff for a negative opiate is 300 ng/mL or less. [facility] Specimen Anatomical Collection Method Collection Time Receive d Time (Source) Location / / Volume Laterality Urine specimen 01/02/2012 4:01 PM 012 4:02 (specimen) RETURNED CASE INSPECTOR PM RETURNED CASE INSPECTOR Edgar Alfredo MD LAB - URINE ORDERABLES Performing Organization Address City/State/ZIP Code Phon e Number [facility] [address] [place] [address] [facility] documented in this encounter Visit Diagnoses Diagnosis Opiate dependence (H) - Primary Opioid type dependence, unspecified complicated by chemical depend ency, antepartum Drug dependence, antepartum Vitamin B12 deficiency (non anaemic) Other B-complex deficiencies documented in this encounter Care Teams Manager Access Relationship Specialty Start Date End Date None, Bfp PCP - General 03/02/99 04/12/12 documented as of this encounter
--- OUTSIDE RECORDS SUMMARY | 2021-12-05 19:34 | XMS_ITS | Encounter Summary ---
:1980 Author Organization [place] Address [address] [place] [address] Care Team Providers Name Role Phone Edgar Alfredo MD Primary Care Provider Reason for Visit Reason Comments Recheck Medication Encounter Details Date Type Department Care Team Description 07/23/2012 Office Visit [facility] Edgar Alfredo Opiate de pendence (H) Clinic Ashly Gauthier MD (Primary Dx) [address] [facility] [address] [facility] [address] [place] [phone] Social History Tobacco Use Types Packs/Day Years Used Date Smoking Tobacco: Every Day Cigarettes 0.5 10 Smokeless Tobacco: Never Alcohol Use Standard Drinks/Week Comments No 0 (1 standard drink = 0.6 oz pure alcoho l) Sex Assigned at Date Recorded Female 01/14/2020 10:57 AM ART CLASS MODEL documented as of this encounter Last Filed [...] Script for subutex was faxed to the [facility]. >> BRYNN HAMMOND FriJul 23, 2012 [...] completed using cuff size: regular Brynn Manish LIFE SCIENCE TAXONOMIST documented in this encounter Miscellaneous Notes Addendum Note - Brynn Hammond - 08/11/2012 4:52 PM CDT Addended by: BRYNN HAMMOND on: 08/11/2012 04:52 PM Modules accepted: SmartSet documented in this encounter Plan of Treatment Upcoming Encounters Date Type Specialty Care Team Description 12/20/2021 Office Visit Wound Care Luis Camara, [place] [address] [place], [place] [address] (Wo rk) 01/21/2022 Office Visit Gastroenterology Juanis Levi [address] [place] [phone] Luis Fernando Miles MD [address] [facility] 2[address] [place], [place] [address] documented as of this encounter Visit Diagnoses Diagnosis Opiate dependence (H) - Primary Opioid type dependence, unspecified documented in this encounter Care Teams Regional Dedicated Truck Driver Relationship Specialty Start Date End Date Edgar Alfredo MD PCP - General Family Practice 04/13/12 08/11/14 [address] [facility] [address] [place] [phone] documented as of this encounter
--- OUTSIDE RECORDS SUMMARY | 2021-12-05 19:34 | XMS_ITS | Encounter Summary ---
:1980 Author Organization [place] Address [address] [facility] [place] [address] Care Team Providers Name Role Phone Edgar Carbone MD Primary Care Provider Reason for Visit Reason Onset Date Comments Refill Request 06/29/2012 Encounter Details Date Type Department Care Team Description 06/29/[address] [facility] Nithya Carbone MD Refill Request [place] [address] [facility] [address] [place] [address] Suite [facility] [address] [place] [address] [phone] Social History Tobacco Use Types Packs/Day Years Used Date Smoking Tobacco: Every Day Cigarettes 0.5 10 Smokeless Tobacco: Never Alcohol Use Standard Drinks/Week Comments No 0 (1 standard drink = 0.6 oz pure alcoho l) Sex Assigned at Date Recorded Female 01/14/2020 10:57 AM NET DEVELOPER SOFTWARE ENGINEER C documented as of this encounter Miscellaneous Notes [...] would likelinda to call her back at [phone] Chapis Diaz RN Telephone Encounter - Chapis Diaz - 06/30/2012 2:20 PM CDT [phone] Telephone Encounter - Marycarmen Spence - 06/30/2012 [...] to the [facility] in [place]. Please callher at [phone] when this has been done. Telephone Encounter [...] Visit Wound Care Luis Camara, [place] [address] [place] [address] (Wo rk) 01/21/2022 Office Visit Gastroenterology Juanis Levi [address] [place] [address] Luis Fernando Miles MD 516 [facility] [address] [place] [address] documented as of this encounter Visit Diagnoses Diagnosis Opiate dependence (H) - Primary Opioid type dependence, unspecified documented in this encounter Care Teams Photographer Finish Relationship Specialty Start Date End Date Edgar Carbone MD PCP - General Family Practice 04/13/12 08/11/14 [address] [facility] S [facility] 700 [place] [address] documented as of this encounter
--- OUTSIDE RECORDS SUMMARY | 2021-12-05 19:34 | XMS_ITS | Encounter Summary ---
:1980 Author Organization [place] Address [address]50 [facility] [place] [address] Care Team Providers Name Role Phone None, Bfp Primary Care Provider Unavailable Encounter Details Date Type Department Care Team Description 01/21/2012 Telephone [facility] Nithya Alfredo MD [place] [address] [place] [address] [place] [address] [phone] Social History Tobacco Use Types Packs/Day Years Used Date Smoking Tobacco: Every Day Cigarettes 0.5 10 Smokeless Tobacco: Never Alcohol Use Standard Drinks/Week Comments No 0 (1 standard drink = 0.6 oz pure alcoho l) Sex Assigned at Date Recorded Female 01/14/2020 10:57 AM GRILL ATTENDANT documented as of this encounter Miscellaneous Notes Telephone Encounter - Sintia Colon - 01/22/2012 1:25 PM CST PA for subutex aprroved- #30month/one year. Sintia Colon RN L ATTENDANT Telephone Encounter - Chapis Diaz - 01/21/2012 2:25 PM CST Faxed Chapis Diaz RN L ATTENDANT Telephone Encounter - Chapis Diaz - 01/21/2012 1:47 PM CST [facility] faxed buprenorphin 8 mg needs prior auth Id [id number] Insurance [employer] Flo/career representative--will fax us form we can write urgent on form and they will get to it immediately. Chapis Diaz RN L ATTENDANT documented in this encounter Plan of Treatment Upcoming Encounters Date Type Specialty Care Team Description 12/20/2021 Office Visit Wound Care Luis Camara DPM [address] [place] [address] (Wo rk) 01/21/2022 Office Visit Gastroenterology Juanis Levi [address] [place] [address] Luis Fernando Miles MD 516 [facility] 2[address] [place] [address] documented as of this encounter Visit Diagnoses Not on filedocumented in this encounter Care Teams Feeder Associate Relationship Specialty Start Date End Date None, Bfp PCP - General 03/02/99 04/12/12 documented as of this encounter
--- OUTSIDE RECORDS SUMMARY | 2021-12-05 19:34 | XMS_ITS | Encounter Summary ---
:1980 Author Organization [place] Address [facility] [address] Care Team Providers Name Role Phone None, Bfp Primary Care Provider Unavailable Encounter Details Date Type Department Care Team Description 11/30/2011 Abstract [facility] Edgar Alfredo F[facility] Historical Records: Clinic [place] Notes [address] [facility] [address] [facility] [address] [place] [phone] (Wo rk) Social History Tobacco Use Types Packs/Day Years Used Date Smoking Tobacco: Every Day Cigarettes 0.5 10 Smokeless Tobacco: Never Alcohol Use Standard Drinks/Week Comments No 0 (1 standard drink = 0.6 oz pure alcoho l) Sex Assigned at Date Recorded Female 01/14/2020 10:57 AM WETLAND SCIENTIST documented as of this encounter Plan of Treatment Upcoming Encounters Date Type Specialty Care Team Description 12/20/2021 Office Visit Wound Care Luis Camara DPM [address] [place] [address] (Wo rk) 01/21/2022 Office Visit Gastroenterology Juanis Levi [address] [place] [address] Luis Fernando Miles MD 6 [facility] [address] [place] [address] documented as of this encounter Procedures Procedure [...] on filedocumented in this encounter Care Teams Planned Giving Officer Relationship Specialty Start Date End Date None, Bfp PCP - General 03/02/99 04/12/12 documented as of this encounter
--- OUTSIDE RECORDS SUMMARY | 2021-12-05 19:34 | XMS_ITS | Encounter Summary ---
:1980 Author Organization [place] Address 2450 [facility] [place] [address] Care Team Providers Name Role Phone None, Bfp Primary Care Provider Unavailable Reason for Visit Reason Comments RECHECK PAP date Erroneous encounter-disregard Encounter Details Date Type Department Care Team Description 03/31/2012 Office Visit [facility] Edgar Alfredo ERRONEOUS Clinic Ashly Gauthier MD ENCOUNTER--DISREGARD [address] [place] [address] [place] [address] [place] (Primary Dx) [address] [place] [address] Social History Tobacco Use Types Packs/Day Years Used Date Smoking Tobacco: Every Day Cigarettes 0.5 10 Smokeless Tobacco: Never Alcohol Use Standard Drinks/Week Comments No 0 (1 standard drink = 0.6 oz pure alcoho l) Sex Assigned at Date Recorded Female 01/14/2020 10:57 AM RN TESTING documented as of this encounter Progress Notes Madonna Cody - 04/03/2012 1:26 PM CST Appt cancelled TESTING documented in this encounter Plan of Treatment Upcoming Encounters Date Type Specialty Care Team Description 12/20/2021 Office Visit Wound Care Luis Camara, [place] [address] [place], [place] [address] (Wo rk) 01/21/2022 Office Visit Gastroenterology Juanis Levi [address] [place] [address] Luis Fernando Miles MD 516 [facility] 2A [place] [address] documented as of this encounter Visit Diagnoses Diagnosis ERRONEOUS ENCOUNTER--DISREGARD - Primary documented in this encounter Care Teams Clinical Programmer Relationship Specialty Start Date End Date None, Bfp PCP - General 03/02/99 04/12/12 documented as of this encounter
--- OUTSIDE RECORDS SUMMARY | 2021-12-05 19:34 | XMS_ITS | Encounter Summary ---
:1980 Author Organization [place] Address [facility] [place] [address] Care Team Providers Name Role Phone None, Bfp Primary Care Provider Unavailable Reason for Visit Reason Comments RECHECK please ask about current PAP date Recheck Medication Encounter Details Date Type Department Care Team Description 11/07/2011 Office Visit [facility] Edgar Alfredo de pendence (H) (Primary Dx); Clinic Ashly Gauthier MD Moderate major depression (H) [address] [facility] [address] [facility] [place] [address] [place] [phone] Social History Tobacco Use Types Packs/Day Years Used Date Smoking Tobacco: Every Day Cigarettes 0.5 10 Smokeless Tobacco: Never Alcohol Use Standard Drinks/Week Comments No 0 (1 standard drink = 0.6 oz pure alcoho l) Sex Assigned at Date Recorded Female 01/14/2020 10:57 AM CORPORATE ATTORNEY documented as of this encounter Last Filed [...] Script for suboxone was faxed to the [facility] >> ROSALINE VAZQUEZ [facility] Nov 07, 2011 11:42 AM Patient presents [...] completed using cuff size: regular Rosaline Vazquez INVESTMENT UNDERWRITER documented in this encounter Plan of Treatment Upcoming Encounters Date Type Specialty Care Team Description 12/20/2021 Office Visit Wound Care Luis Camara, [place] [address] [place] [address] (Wo rk) 01/21/2022 Office Visit Gastroenterology Amita, Juanis M [address] [place] [phone] Luis Fernando Miles MD 6 [facility] 2A [place] [address] documented as of this encounter Visit Diagnoses Diagnosis Opiate dependence (H) - Primary Opioid type dependence, unspecified Moderate major depression (H) Major depressive disorder, single episod e, moderate documented in this encounter Care Teams Brine Maker Relationship Specialty Start Date End Date None, Bfp PCP - General 03/02/99 04/12/12 documented as of this encounter
--- OUTSIDE RECORDS SUMMARY | 2021-12-05 19:34 | XMS_ITS | Encounter Summary ---
:1980 Author Organization [place] Address [facility] [place] [place] [address] Care Team Providers Name Role Phone Edgar Alfredo MD Primary Care Provider Reason for Visit Reason Onset Date Comments RECHECK PAP Date Erroneous encounter-disregard 05/16/2012 Encounter Details Date Type Department Care Team Description 05/15/2012 Office Visit [facility] Edgar Alfredo ERRONEOUS Clinic Ashly Gauthier MD ENCOUNTER--DISREGARD [address] Replaced by [facility] 606 [facility] (Primary Dx) [address] [place] [phone] Social History Tobacco Use Types Packs/Day Years Used Date Smoking Tobacco: Every Day Cigarettes 0.5 10 Smokeless Tobacco: Never Alcohol Use Standard Drinks/Week Comments No 0 (1 standard drink = 0.6 oz pure alcoho l) Sex Assigned at Date Recorded Female 01/14/2020 10:57 AM STONE ENGRAVER documented as of this encounter Progress Notes Edgar Alfredo MD - 05/16/2012 8:37 AM CDT This encounter was opened in error. Please disregard. documented in this encounter Plan of Treatment Upcoming Encounters Date Type Specialty Care Team Description 12/20/2021 Office Visit Wound Care Luis Camara, [place] [address] [place] [address] (Wo rk) 01/21/2022 Office Visit Gastroenterology Juanis Levi [address] [place] [phone] Luis Fernando Miles MD 516 [facility] [place] [address] documented as of this encounter Visit Diagnoses Diagnosis ERRONEOUS ENCOUNTER--DISREGARD - Primary documented in this encounter Care Teams Hang Gliding Instructor Relationship Specialty Start Date End Date Edgar Alfredo MD PCP - General Family Practice 04/13/12 08/11/14 [address] [facility] [place] [address] [place] [phone] documented as of this encounter
--- OUTSIDE RECORDS SUMMARY | 2021-12-05 19:34 | XMS_ITS | Encounter Summary ---
:1980 Author Organization [place] Address 2450 [facility] [place] [address] Care Team Providers Name Role Phone None, Bfp Primary Care Provider Unavailable Edgar Alfredo MD Primary Care Provider Reason for Visit Reason Comments Recheck Medication u/a Encounter Details Date Type Department Care Team Description 04/10/2012 Office Visit [facility] Edgar Alfredo Anxiety ( Primary Dx); Clinic Ashly Gauthier MD complicated by chemical depend ency, antepartum (H); [address] [facility] [address] [facility] Vitamin B12 deficiency (non anaemic); [address] Opiate dependence (H) [place] [phone] Social History Tobacco Use Types Packs/Day Years Used Date Smoking Tobacco: Every Day Cigarettes 0.5 10 Smokeless Tobacco: Never Alcohol Use Standard Drinks/Week Comments No 0 (1 standard drink = 0.6 oz pure alcoho l) Sex Assigned at Date Recorded Female 01/14/2020 10:57 AM ICE CREAM 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 documented as of this encounter Last Filed Vital Signs Vital Sign Reading Time Taken Comments Blood Pressure 118/57 04/10/2012 4:20 PM ICE CREAM 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 Pulse 88 04/10/2012 4:20 PM ICE CREAM 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 Temperature 37.1 ??C (98.7 ??F) 04/10/2012 4:20 PM ICE CREAM 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 Respiratory Rate - - Oxygen Saturation 98% 04/10/2012 4:20 PM ICE CREAM 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 Inhaled Oxygen Concentration - - Weight 73 kg (161 lb) 04/10/2012 4:20 PM ICE CREAM 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 Height 166.4 cm (5' 5.5) 04/10/2012 4:20 PM ICE CREAM 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 Body Mass Index 26.38 04/10/2012 4:20 PM ICE CREAM 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 documented in this encounter Progress [...] coordination of care; discussed tapering before delivery CREAM 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 documented in this encounter Nursing Notes 04/10/2012 4:30 PM CST >> FERN MARINELLI FriApr 10, 2012 5:01 PM Script for subutex was faxed to the [facility]. >> BRYNN HAMMOND FriApr 10, 2012 [...] completed using cuff size: regular Brynn Hammond ROD DRAWER documented in this encounter Plan of Treatment Upcoming Encounters Date Type Specialty Care Team Description 12/20/2021 Office Visit Wound Care Luis Camara DPM [address] [place] [address] (Wo rk) 01/21/2022 Office Visit Gastroenterology Juanis Levi 24[address] [facility] [place] [address] Luis Fernando Miles MD 516 [facility] 2[address] [place], [place] [id number] documented as of this encounter Procedures Procedure Name Priority Date/Time Associated Diagnosis Comme nts DRUG ABUSE SCREEN 6 Routine 04/10/2012 5:10 PM Re sults for this CHEM DEP URINE ICE CREAM 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 procedure are in ([facility]) the results section. documented in this encounter Results Drug abuse screen 6 urine (chem dep) ([facility]) (04/10/2012 5:10 PM ICE CREAM 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) Component Value Ref Test Analysis Performed Pathologis t Range Method Time At Signature Amphetamine Qual Negative NEG [facility] Urine Cutoff for a negative amphetamine is 500 ng/mL or less. [facility] Barbiturates Qual Negative NEG [facility] Urine Cutoff for a negative barbiturate is 200 ng/mL or less. [facility] Benzodiazepine Negative NEG [facility] Qual Urine Cutoff for a negative benzodiazepine is 200 ng/mL or less . [facility] Cannabinoids Qual Negative NEG [facility] Urine Cutoff for a negative cannabinoid is 50 ng/mL or less. [facility] Cocaine Qual Negative NEG [facility] Urine Cutoff for a negative cocaine is 300 ng/mL or less. [facility] Ethanol Qual Negative NEG [facility] Urine Cutoff for a negative urine ethanol is 50 mg/dL or less. [facility] Opiates Negative NEG [facility] Qualitative Urine Cutoff for a negative opiate is 300 ng/mL or less. [facility] Specimen Anatomical Collection Method Collection Time Receive d Time (Source) Location / / Volume Laterality 04/10/2012 5:10 PM 3 7:14 ICE CREAM 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 PM ICE CREAM 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 Edgar Alfredo MD LAB - URINE ORDERABLES Performing Organization Address City/State/ZIP Code Phon e Number [facility] [address] [place] [address] [facility] documented in this encounter Visit Diagnoses Diagnosis Anxiety - Primary Anxiety state, unspecified complicated by chemical depend ency, antepartum Drug dependence, antepartum Vitamin B12 deficiency (non anaemic) Other B-complex deficiencies Opiate dependence (H) Opioid type dependence, unspecified documented in this encounter Care Teams Business Strategist Relationship Specialty Start Date End Date None, Bfp PCP - General 03/02/99 04/12/12 Edgar Alfredo MD PCP - General Family Practice 04/13/12 08/11/[address] [facility] [address] [place] [address] documented as of this encounter
--- OUTSIDE RECORDS SUMMARY | 2021-12-05 19:34 | XMS_ITS | Encounter Summary ---
:1980 Author Organization [place] Address [facility] [place] [address] Care Team Providers Name Role Phone None, Bfp Primary Care Provider Unavailable Edgar Alfredo MD Primary Care Provider Reason for Visit Reason Onset Date Comments Medication Compliance Issues 01/02/2012 Subutex Encounter Details Date Type Department Care Team Description 01/02/[address] [facility] Edgar Alfredo, [facility] ication Compliance Clinic Ashly VÁSQUEZ Issues (Subutex) [address] [facility] [address] [place] [address] [address] [place] [phone] (Wo rk) Social History Tobacco Use Types Packs/Day Years Used Date Smoking Tobacco: Every Day Cigarettes 0.5 10 Smokeless Tobacco: Never Alcohol Use Standard Drinks/Week Comments No 0 (1 standard drink = 0.6 oz pure alcoho l) Sex Assigned at Date Recorded Female 01/14/2020 10:57 AM DESIGN DIRECTOR documented as of this encounter Miscellaneous Notes Telephone Encounter - Marycarmen Spence - 01/02/2012 4:50 PM CST Inquiry routed to provider to review. Marycarmen Spence RN GN DIRECTOR Telephone Encounter - Edgar Alfredo MD - 01/02/2012 4:49 PM CST Patient was on 12 mg Suboxone I am reducing dose to 10 mg for 2 weeks then 8 mg per day Since she is I have switched to Subutex GN DIRECTOR Telephone Encounter - Alia Cunningham - 01/02/2012 4:45 PM CST Clinic Action Needed: Call pharmacy to verify medication and dosage. Reason for Call: To clarify med order for Subutex 8mg tab and 2mg tabs. Last prescribed Suboxone 8-2mg and was noted at last refill plans to decrease medication. Received order today for Subutex instead of Suboxone Patient Recommendations/Teaching:Message through [employer] and left message on phone. Teaching per [facility] Care guidelines. Routed to: Dr. Alfredo and nurse libby Cunningham RN [facility] [phone] GN DIRECTOR documented in this encounter Plan of Treatment Upcoming Encounters Date Type Specialty Care Team Description 12/20/2021 Office Visit Wound Care Luis Camara DPM 9[address] [place] [address] (Wo rk) 01/21/2022 Office Visit Gastroenterology Juanis Levi [address] [place] [address] Luis Fernando Miles MD 516 [facility] 2A [place], [place] [address] documented as of this encounter Visit Diagnoses Not on filedocumented in this encounter Care Teams Cd Technician Relationship Specialty Start Date End Date None, Bfp PCP - General 03/02/99 04/12/12 Edgar Alfredo MD PCP - General Family Practice 04/13/12 08/11/[address] [place] [address] 700 [place] [address] documented as of this encounter
--- OUTSIDE RECORDS SUMMARY | 2021-12-05 19:34 | XMS_ITS | Encounter Summary ---
:1980 Author Organization [place] Address 24[address] [facility] [place] [address] Care Team Providers Name Role Phone None, Bfp Primary Care Provider Unavailable Reason for Visit Reason Onset Date Comments Call Back 12/26/2011 Encounter Details Date Type Department Care Team Description 12/26/2011 Telephone [facility] Nithya Alfredo MD Call Back [address] [place] [address] [phone] [place] [address] [phone] Social History Tobacco Use Types Packs/Day Years Used Date Smoking Tobacco: Every Day Cigarettes 0.5 10 Smokeless Tobacco: Never Alcohol Use Standard Drinks/Week Comments No 0 (1 standard drink = 0.6 oz pure alcoho l) Sex Assigned at Date Recorded Female 01/14/2020 10:57 AM FLOWER PLANTER documented as of this encounter Miscellaneous Notes Telephone Encounter - Edgar Alfredo MD - 12/26/2011 10:10 AM CST Will switch to Subutex at lower dose next week ER PLANTER Telephone Encounter - Tigist Fraga - 12/26/2011 8:17 AM CST Incoming call from pt's partner Woody, pt also came on the phone. Pt gave call back # [phone]. Woody initially asked to speak to Dr Alfredo, stated it was a life threatening situation re pt's currentpregnancy, pt came on phone and asked to make an appt with Dr Alfredo, first available is 01-01, pt states she will be out of pills by then, pt wanting call back from Dr Alfredo. ER PLANTER documented in this encounter Plan of Treatment Upcoming Encounters Date Type Specialty Care Team Description 12/20/2021 Office Visit Wound Care Luis Camara, [place] [address] [place] [address] (Wo rk) 01/21/2022 Office Visit Gastroenterology Juanis Levi [address] [place] [address] Luis Fernando Miles MD 6 [facility] 2A [place] [address] documented as of this encounter Visit Diagnoses Not on filedocumented in this encounter Care Teams Buckle Gluer Relationship Specialty Start Date End Date None, Bfp PCP - General 03/02/99 04/12/12 documented as of this encounter
--- OUTSIDE RECORDS SUMMARY | 2021-12-05 19:34 | XMS_ITS | Encounter Summary ---
:1980 Author Organization [place] Address 2450 [facility] [place] [address] Care Team Providers Name Role Phone Edgar Alfredo MD Primary Care Provider Reason for Visit Reason Onset Date Comments Refill Request 06/09/2012 Encounter Details Date Type Department Care Team Description 06/09/2012 Refill [facility] Nithya Alfredo MD Refill Request [facility] [address] 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 Srinath Short Nurse documented in this encounter Plan of Treatment Upcoming Encounters Date Type Specialty Care Team Description 12/20/2021 Office Visit Wound Care Luis Camara DPM 9[address] [place] [address] (Wo rk) 01/21/2022 Office Visit Gastroenterology Juanis Levi [address] [place] [address] Luis Fernando Miles MD 516 [facility] 2A [place] [address] documented as of this encounter Visit Diagnoses Diagnosis Moderate major depression (H) - Primary Major depressive disorder, single episod e, moderate documented in this encounter Care Teams Machine Stone Polisher Relationship Specialty Start Date End Date Edgar Alfredo MD PCP - General Family Practice 04/13/12 08/11/14 [address] [place] [address] [place] [address] documented as of this encounter
--- OUTSIDE RECORDS SUMMARY | 2021-12-05 19:34 | XMS_ITS | Encounter Summary ---
:1980 Author Organization [place] Address 2450 [facility] [place] [address] Care Team Providers Name Role Phone None, Bfp Primary Care Provider Unavailable Reason for Visit Reason Onset Date Comments Refill Request 01/20/2012 Encounter Details Date Type Department Care Team Description 01/20/2012 Refill [facility] Nithya Alfredo MD Refill Request [address] [place] [address] [address] [phone] [place] [address] [phone] Social History Tobacco Use Types Packs/Day Years Used Date Smoking Tobacco: Every Day Cigarettes 0.5 10 Smokeless Tobacco: Never Alcohol Use Standard Drinks/Week Comments No 0 (1 standard drink = 0.6 oz pure alcoho l) Sex Assigned at Date Recorded Female 01/14/2020 10:57 AM SENIOR HUMAN RESOURCES 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 documented as of this encounter Miscellaneous Notes Telephone Encounter - Marycarmen Spence - 01/20/2012 5:09 PM CST Scripts faxed. Marycarmen Spence RN OR HUMAN RESOURCES 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 Telephone Encounter - Violeta Soto - 01/20/2012 4:56 PM CST Patient called - Please refill prescription to the [facility] on [place] [address]. Their number is [phone]. OR HUMAN RESOURCES 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 Telephone Encounter - Sintia Colon - 01/20/2012 4:01 PM CST There are two different [facility] in [place]- patient was called to clarify which one she wants the medication sent to. Patient mother picked up the phone and stated she didn't know her number but she would try to contact patient to have her call the clinic. Until we hear from patient, the scripts are sitting in the top drawer of [email or web address]. Sintia Colon RN OR HUMAN RESOURCES 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 Telephone Encounter - Edgar Alfredo MD - 01/20/2012 3:56 PM CST Ordered Need pharm info In fax box OR HUMAN RESOURCES 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 Telephone Encounter - Tigist Fraga - 01/20/2012 3:43 PM CST Pt calling, states she is out of subutex, 8 mg and 2 mg as was only given 15 days worth at last refill. Before ending conversation, pt also stated she was out of Wellbutrin. [facility] [place]. Caller states she can be reached or messages left at [phone] which is her mother's phone number. Aware Dr Alfredo not scheduled in clinic this afternoon. OR HUMAN RESOURCES 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 documented in this encounter Plan of Treatment Upcoming Encounters Date Type Specialty Care Team Description 12/20/2021 Office Visit Wound Care Luis Camara DPM [address] [place], [place] [address] (Wo rk) 01/21/2022 Office Visit Gastroenterology Juanis Levi [address] [place] [address] Luis Fernando Miles MD [address] [place] [address] documented as of this encounter Visit Diagnoses Diagnosis Opiate dependence (H) - Primary Opioid type dependence, unspecified Moderate major depression (H) Major depressive disorder, single episod e, moderate documented in this encounter Care Teams Docket Clerk Relationship Specialty Start Date End Date None, Bfp PCP - General 03/02/99 04/12/12 documented as of this encounter
--- OUTSIDE RECORDS SUMMARY | 2021-12-05 19:34 | XMS_ITS | Encounter Summary ---
:1980 Author Organization [place] Address 2450 [place] [address] Care Team Providers Name Role Phone None, Bfp Primary Care Provider Unavailable Reason for Visit Reason Onset Date Comments Refill Request 03/31/2012 Encounter Details Date Type Department Care Team Description 03/31/2012 Refill [facility] Nithya Alfredo MD Refill Request [place] [address] [place] [address] [address] [place] [address] [phone] [place] [address] [phone] Social History Tobacco Use Types Packs/Day Years Used Date Smoking Tobacco: Every Day Cigarettes 0.5 10 Smokeless Tobacco: Never Alcohol Use Standard Drinks/Week Comments No 0 (1 standard drink = 0.6 oz pure alcoho l) Sex Assigned at Date Recorded Female 01/14/2020 10:57 AM ABALONE DIVER documented as of this encounter Miscellaneous Notes Telephone Encounter - Madonna Cody - 03/31/2012 1:12 PM CST Script for subutex was faxed to the [facility] in [place]. ONE DIVER Telephone Encounter - Edgar Alfredo MD - 03/31/2012 12:25 PM CST advised appointment in 1 week Will reduce Subutex to 6 mg ONE DIVER Telephone Encounter - Abel Sal - 03/31/2012 12:20 PM CST Pt missed appt this am. Couldn't get a ride. Asked Dr. Alfredo about situation.Pt was informed that could still see her for her Subutex refill if she can get here w/i the hour. She said it would take over 1-1/2 hours to get here from [place]. Pt was informed the best that can be done is to get a note to Dr. Alfredo and he can call you. Pt's cell#:[phone] ONE DIVER documented in this encounter Plan of Treatment Upcoming Encounters Date Type Specialty Care Team Description 12/20/2021 Office Visit Wound Care Luis Camara DPM [address] [place], [place] [address] (Wo rk) 01/21/2022 Office Visit Gastroenterology Juanis Levi [address] [place] [address] Luis Fernando Miles MD 516 [facility] 2A [place], [place] [address] documented as of this encounter Visit Diagnoses Diagnosis complicated by chemical depend ency, antepartum - Primary Drug dependence, antepartum documented in this encounter Care Teams Pension Consultant Relationship Specialty Start Date End Date None, Bfp PCP - General 03/02/99 04/12/12 documented as of this encounter
--- OUTSIDE RECORDS SUMMARY | 2021-12-05 19:35 | XMS_ITS | Encounter Summary ---
:1980 Author Organization [place] Address 2450 [facility] [place] [address] Care Team Providers Name Role Phone None, Bfp Primary Care Provider Unavailable Encounter Details Date Type Department Care Team Description 05/05/2004 Admission H&P (Flower Grader) Unknown, Pr ovider Social History Tobacco Use Types Packs/Day Years Used Date Smoking Tobacco: Never Assessed Sex Assigned at Date Recorded Female 01/14/2020 10:57 AM JOB TRAINING SPECIALIST documented as of this encounter Plan of Treatment Upcoming Encounters Date Type Specialty Care Team Description 12/20/2021 Office Visit Wound Care Luis Camara DPM 9[address] [place] [address] (Wo rk) 01/21/2022 Office Visit Gastroenterology Juanis Levi [address] [place] [phone] Luis Fernando Miles MD [address] [address] documented as of this encounter Visit Diagnoses Not on filedocumented in this encounter Care Teams Mail Handlers Supervisor Relationship Specialty Start Date End Date None, Bfp PCP - General 03/02/99 04/12/12 documented as of this encounter
--- OUTSIDE RECORDS SUMMARY | 2021-12-05 19:35 | XMS_ITS | Encounter Summary ---
:1980 Author Organization [place] Address [facility] [place] [address] Care Team Providers Name Role Phone None, Bfp Primary Care Provider Unavailable Encounter Details Date Type Department Care Team Description 09/29/2003 Emergency room Santo Delong MD [address] [place] [address] (Wo rk) Social History Tobacco Use Types Packs/Day Years Used Date Smoking Tobacco: Never Assessed Sex Assigned at Date Recorded Female 01/14/2020 10:57 AM METAL FURNITURE POLISHER documented as of this encounter ED Notes [...] urinalysis. [id number]_ SANTO DELONG MD MT: Document: [id number] [place], [place] Name: STEPHANI MCCORMICK EMERGENCY ROOM ENCOUNTER Page 2 of 2 LCN: JOSEPH DSC: 09/29/2003 [place], [place] Name: MR#: : Admit Date: STEPHANI MCCORMICK -66 1980 09/29/2003 Doctor: SANTO DELONG MD EMERGENCY ROOM ENCOUNTER Page 1 of 2 documented in this encounter Plan of Treatment Upcoming Encounters Date Type Specialty Care Team Description 12/20/2021 Office Visit Wound Care Luis Camara DPM [address] [place], [place] [address] (Wo rk) 01/21/2022 Office Visit Gastroenterology Juanis Levi [address] [place] [address] Luis Fernando Miles MD 516 [facility] 2[address] [place], [place] [phone] documented as of this encounter Visit Diagnoses Not on filedocumented in this encounter Care Teams Photo Machine Operator Relationship Specialty Start Date End Date None, Bfp PCP - General 03/02/99 04/12/12 documented as of this encounter
--- OUTSIDE RECORDS SUMMARY | 2021-12-05 19:35 | XMS_ITS | Encounter Summary ---
:1980 Author Organization [place] Address [address] [place] [address] Care Team Providers Name Role Phone None, Bfp Primary Care Provider Unavailable Encounter Details Date Type Department Care Team Description 01/08/2005 Results Only [facility] Edgar Alfredo MD [facility] Radiology Results [address] [place] [address] (Wo rk) Social History Tobacco Use Types Packs/Day Years Used Date Smoking Tobacco: Never Assessed Sex Assigned at Date Recorded Female 01/14/2020 10:57 AM GROOVER OPERATOR documented as of this encounter Plan of Treatment Upcoming Encounters Date Type Specialty Care Team Description 12/20/2021 Office Visit Wound Care Luis Camara DPM [address] [place], [place] [phone] (Wo rk) 01/21/2022 Office Visit Gastroenterology Juanis Levi [address] [place] [address] Luis Fernando Miles MD [address] [facility] [address] [address] [place], [place] [address] documented as of this encounter Procedures Procedure Name Priority Date/Time Associated Diagnosis Comme [facility] OB 2-3 Routine 01/08/2005 12:11 PM Results for this TRIMESTER GROOVER OPERATOR procedure are i n MAT/, SINGLE the result s GESTATION section. documented in this encounter Results SONO COMPLETE (01/08/2005 12:11 PM GROOVER OPERATOR) Anatomical Region Laterality Modality Other Specimen (Source) Anatomical Collection Method Collection Time Re ceived Time Location / / Volume Laterality 01/08/2005 12:11 PM GROOVER OPERATOR Impressions 01/12/2005 7:22 AM GROOVER OPERATOR ?? OBSTETRIC ULTRASOUND, SECOND/THIRD TRIME STER ?? CLINICAL HISTORY: ??The patient is withd alisson. ?? survey. ?? FINDINGS: ??Single living fetus seen in longitudinal lie and cephalic presentation. ??Cardiac activity 130 cici ts per minute and regular. ?? Placenta anterior without evidence of pr evia or abruption. ??Amniotic fluid volume normal with four-quadrant i ndex of 13. ??Umbilical artery ffkmadlp-mo-vrhzazbci ratio of 4.2 to 1, which is [...] on filedocumented in this encounter Care Teams Drone Software Development Engineer Relationship Specialty Start Date End Date None, Bfp PCP - General 03/02/99 04/12/12 documented as of this encounter
--- OUTSIDE RECORDS SUMMARY | 2021-12-05 19:35 | XMS_ITS | Encounter Summary ---
:1980 Author Organization [place] Address [address] [facility] [place] [address] Care Team Providers Name Role Phone None, Bfp Primary Care Provider Unavailable Encounter Details Date Type Department Care Team Description 04/10/2010 Historic Results INTERFACED REPORT No Ref-Primar y, Physician Social History Tobacco Use Types Packs/Day Years Used Date Smoking Tobacco: Never Assessed Sex Assigned at Date Recorded Female 01/14/2020 10:57 AM COUNTER CLERK TRACTOR PARTS documented as of this encounter Plan of Treatment Upcoming Encounters Date Type Specialty Care Team Description 12/20/2021 Office Visit Wound Care Luis Camara, [place] [address] [place], [place] [phone] (Wo rk) 01/21/2022 Office Visit Gastroenterology Juanis Levi [address] [place] [phone] Luis Fernando Miles MD [address] [address] documented as of this encounter Procedures Procedure Name Priority Date/Time Associated Comments Diagnosis WET PREPARATION Routine 04/10/2010 11:55 Results for this PM COUNTER CLERK TRACTOR PARTS procedure are i n the results section. NEISSERIA GONORRHOEAE Routine 04/10/2010 11:55 Re sults for this PCR PM COUNTER CLERK TRACTOR PARTS procedure are i n the results section. CHLAMYDIA TRACHOMATIS Routine 04/10/2010 11:55 Re sults for this PCR PM COUNTER CLERK TRACTOR PARTS procedure are i n the results section. CBC WITH PLATELETS & STAT 04/10/2010 11:20 Res ults for this DIFFERENTIAL PM COUNTER CLERK TRACTOR PARTS procedure are i n the results section. BILIRUBIN TOTAL Routine 04/10/2010 11:20 Results for this PM COUNTER CLERK TRACTOR PARTS procedure are i n the results section. AST Routine 04/10/2010 11:20 Results for this PM COUNTER CLERK TRACTOR PARTS procedure are i n the results section. ALT Routine 04/10/2010 11:20 Results for this PM COUNTER CLERK TRACTOR PARTS procedure are i n the results section. ALKALINE PHOSPHATASE Routine 04/10/2010 11:20 Res ults for this PM COUNTER CLERK TRACTOR PARTS procedure are i n the results section. BASIC METABOLIC PANEL STAT 04/10/2010 11:20 Re sults for this PM COUNTER CLERK TRACTOR PARTS procedure are i n the results section. ROUTINE UA WITH STAT 04/10/2010 10:14 Results for this MICROSCOPIC PM COUNTER CLERK TRACTOR PARTS procedure are i n the results section. URINE CULTURE Routine 04/10/2010 10:14 Results fo r this PM COUNTER CLERK TRACTOR PARTS procedure are i n the results section. documented in this encounter Results Chlamydia trachomatis PCR (04/10/2010 11:55 PM COUNTER CLERK TRACTOR PARTS) Component Value Ref Test Analysis Performed At [facility] Range Method Time Signature Specimen Cervical MISYS Description Chlamydia Negative for C. MISYS Trachomatis PCR trachomatis rRNA by invoice coder mediated amplification. Comment: A negative result by invoice coder medi ated amplification does not preclude the presence of C. trachomatis infection be cause results are dependent on proper and adequate collection, absence of inh ibitors, and sufficient rRNA to be detected. Specimen Anatomical Collection Method Collection Time Receive d Time (Source) Location / / Volume Laterality 04/10/2010 11:55 04/11/2010 PM COUNTER CLERK TRACTOR PARTS 12:10 AM COUNTER CLERK TRACTOR PARTS Physician No Ref-Primary LAB - MICRO GENERAL ORDERABL ES Performing Organization Address City/State/ZIP Code Phon e Number MISYS Neisseria gonorrhoeae PCR (04/10/2010 11:55 PM COUNTER CLERK TRACTOR PARTS) [facility] Method Time Signature Specimen Cervical MISYS Descrip N Gonorrhea Negative for N. MISYS PCR gonorrhoeae rRNA by invoice coder mediated amplification. Comment: A negative result by invoice coder medi ated amplification does not preclude the presence of N. gonorrhoeae infection be cause results are dependent on proper and adequate collection, absence of inh ibitors, and sufficient rRNA to be detected. Specimen Anatomical Collection Method Collection Time Receive d Time (Source) Location / / Volume Laterality 04/10/2010 11:55 04/11/2010 PM COUNTER CLERK TRACTOR PARTS 12:10 AM COUNTER CLERK TRACTOR PARTS Physician No Ref-Primary LAB - MICRO GENERAL ORDERABL ES Performing Organization Address City/State/ZIP Code Phon e Number MISYS Wet prep (04/10/2010 11:55 PM COUNTER CLERK TRACTOR PARTS) [facility] Method Time Signature Specimen Vagina MISYS Description Micro Report FINAL MISYS Status 04/11/2010 Wet Prep Moderate MISYS PMNs seen Comment: No yeast seen No Trichomonas seen Clue cells seen Specimen Anatomical Collection Method Collection Time Receive d Time (Source) Location / / Volume Laterality 04/10/2010 11:55 04/11/2010 PM COUNTER CLERK TRACTOR PARTS 12:10 AM COUNTER CLERK TRACTOR PARTS Physician No Ref-Primary LAB - MICRO GENERAL ORDERABL ES Performing Organization Address City/State/ZIP Code Phon e Number MISYS (ABNORMAL) CBC with platelets differential (04/10/2010 11:20 PM COUNTER CLERK TRACTOR PARTS) [facility] Method Time Signature MCV 87 78 [...] / Volume Laterality 04/10/2010 11:20 04/10/2010 PM COUNTER CLERK TRACTOR PARTS 11:03 PM COUNTER CLERK TRACTOR PARTS Breanna Main MD LAB - BLOOD ORDERABLES Performing Organization Address City/State/ZIP Code Phon e Number MISYS Basic metabolic panel (04/10/2010 11:20 PM COUNTER CLERK TRACTOR PARTS) P athologist Signature Sodium 135 133 - [...] / Volume Laterality 04/10/2010 11:20 04/10/2010 PM COUNTER CLERK TRACTOR PARTS 11:03 PM COUNTER CLERK TRACTOR PARTS Breanna Main MD LAB - BLOOD ORDERABLES Performing Organization Address City/State/ZIP Code Phon e Number MISYS Alkaline phosphatase (04/10/2010 11:20 PM COUNTER CLERK TRACTOR PARTS) athologist Signature Alkaline 55 40 - 150 MISYS Phosphatase U/L Specimen Anatomical Collection Method Collection Time Receive d Time (Source) Location / / Volume Laterality 04/10/2010 11:20 04/11/2010 PM COUNTER CLERK TRACTOR PARTS 12:08 AM COUNTER CLERK TRACTOR PARTS Breanna Main MD LAB - BLOOD ORDERABLES Performing Organization Address City/State/ZIP Code Phon e Number MISYS ALT (04/10/2010 11:20 PM COUNTER CLERK TRACTOR PARTS) P athologist Signature ALT 41 0 - 50 U/L MISYS Specimen Anatomical Collection Method Collection Time Receive d Time (Source) Location / / Volume Laterality 04/10/2010 11:20 04/11/2010 PM COUNTER CLERK TRACTOR PARTS 12:08 AM COUNTER CLERK TRACTOR PARTS Breanna Main MD LAB - BLOOD ORDERABLES Performing Organization Address City/[facility]/ZIP Code Phon e Number MISYS AST (04/10/2010 11:20 PM COUNTER CLERK TRACTOR PARTS) athologist Signature AST 31 0 - 45 U/L MISYS Specimen Anatomical Collection Method Collection Time Receive d Time (Source) Location / / Volume Laterality 04/10/2010 11:20 04/11/2010 PM COUNTER CLERK TRACTOR PARTS 12:08 AM COUNTER CLERK TRACTOR PARTS Breanna Main MD LAB - BLOOD ORDERABLES Performing Organization Address [facility]/ZIP Code Phon e Number MISYS Bilirubin total (04/10/2010 11:20 PM COUNTER CLERK TRACTOR PARTS) athologist Signature Bilirubin Total 0.4 0.2 - 1.3 MISYS mg/dL Specimen Anatomical Collection Method Collection Time Receive d Time (Source) Location / / Volume Laterality 04/10/2010 11:20 04/11/2010 PM COUNTER CLERK TRACTOR PARTS 12:08 AM COUNTER CLERK TRACTOR PARTS Breanna Main MD LAB - BLOOD ORDERABLES Performing Organization Address City/[facility]/ZIP Code Phon e Number MISYS (ABNORMAL) Routine UA with microscopic (04/10/2010 10:14 PM COUNTER CLERK TRACTOR PARTS) [facility] Method Time Signature Source Midstream MISYS Urine Color Urine Yellow MISYS Appearance Urine Slightly MISYS Cloudy Glucose Urine Negative NEG mg/dL MISYS Bilirubin Urine Negative NEG MISYS Ketones Urine Negative NEG mg/dL MISYS Specific [place] 1.019 1.003 - MISYS Urine 1.035 Blood [...] / Volume Laterality 04/10/2010 10:14 04/10/2010 PM COUNTER CLERK TRACTOR PARTS 10:17 PM COUNTER CLERK TRACTOR PARTS Breanna Main MD LAB - URINE ORDERABLES Performing Organization Address City/State/ZIP Code Phon e Number MISYS Urine culture (04/10/2010 10:14 PM COUNTER CLERK TRACTOR PARTS) [facility] Method Time Signature Specimen Midstream MISYS Description Urine Culture Micro No growth MISYS Micro Report FINAL MISYS Status 04/12/2010 Specimen Anatomical Collection Method Collection Time Receive d Time (Source) Location / / Volume Laterality 04/10/2010 10:14 04/10/2010 PM COUNTER CLERK TRACTOR PARTS 10:37 PM COUNTER CLERK TRACTOR PARTS Physician No Ref-Primary LAB - MICRO GENERAL ORDERABL ES Performing Organization Address City/[facility] Phon e Number MISYS documented in this encounter Visit Diagnoses Not on filedocumented in this encounter Care Teams Manager Equipment Relationship Specialty Start Date End Date None, Bfp PCP - General 03/02/99 04/12/12 documented as of this encounter
--- OUTSIDE RECORDS SUMMARY | 2021-12-05 19:35 | XMS_ITS | Encounter Summary ---
:1980 Author Organization [place] Address [facility] [place] [address] Care Team Providers Name Role Phone None, Bfp Primary Care Provider Unavailable Encounter Details Date Type Department Care Team Description 01/16/2005 Operative Report Mal uDpree MD (Magnetic Tester) [facility]TH [facility] [address] [place], [place] [phone] (Wo rk) Social History Tobacco Use Types Packs/Day Years Used Date Smoking Tobacco: Never Assessed Sex Assigned at Date Recorded Female 01/14/2020 10:57 AM MORTGAGE FUNDER documented as of this encounter Progress Notes Radames Dupree - 01/16/2005 11:59 PM MORTGAGE FUNDER PREOPERATIVE DIAGNOSIS: Right calcaneus fracture at the calcaneocuboid joint. POSTOPERATIVE DIAGNOSIS: Right calcaneus fracture at the calcaneocuboid joint. NAME OF OPERATION: Primary fusion of the right calcaneocuboid joint with bone grafting. SURGEON: Radames Dupree MD. CREEL SELECTOR: Carmen Winston Ton Container Shipper. OPERATIVE PROCEDURE: The patient was brought to [...] entire plate on. This was removed with [employer] electroplater helper. The plate was then applied to the [...] by: RADAMES DUPREE MD MT: estefania Document: [id number] LCN: [id number] DSC: 01/16/2005 Name: MR#: : Procedure Date: STEPHANI MCCORMICK -66 1980 01/16/2005 OPERATIVE REPORT Page 2 of 2 GAGE FUNDER documented in this encounter Plan of Treatment Upcoming Encounters Date Type Specialty Care Team Description 12/20/2021 Office Visit Wound Care Luis Camara DPM [address] [place], [place] [phone] (Wo rk) 01/21/2022 Office Visit Gastroenterology Juanis Levi [address] [place] [address] Luis Fernando Miles MD 516 [facility] 2[address] [place], [place] [phone] documented as of this encounter Visit Diagnoses Not on filedocumented in this encounter Care Teams Binding Nicker Relationship Specialty Start Date End Date None, Bfp PCP - General 03/02/99 04/12/12 documented as of this encounter
--- OUTSIDE RECORDS SUMMARY | 2021-12-05 19:35 | XMS_ITS | Encounter Summary ---
:1980 Author Organization [place] Address [facility] [place] [address] Care Team Providers Name Role Phone None, Bfp Primary Care Provider Unavailable Edgar Alfredo MD Primary Care Provider Reason for Visit Reason Onset Date Comments Health Maintenance 10/28/2011 LDL goal Encounter Details Date Type Department Care Team Description 10/28/2011 Telephone [facility] Edgar Alfredo Hea lt Maintenance (LDL Clinic [place] goal ) [address] [facility] [address] [place] [address] [address] [place] [phone] (Wo rk) Social History Tobacco Use Types Packs/Day Years Used Date Smoking Tobacco: Every Day Cigarettes 0.5 10 Smokeless Tobacco: Never Alcohol Use Standard Drinks/Week Comments No 0 (1 standard drink = 0.6 oz pure alcoho l) Sex Assigned at Date Recorded Female 01/14/2020 10:57 AM REHAB AIDE documented as of this encounter Miscellaneous Notes Telephone Encounter - Marycarmen Spence - 10/28/2011 3:45 PM CDT Per quality measure review, please add an LDL goal to this patient's current problem list. Marycarmen Spence RN documented in this encounter Plan of Treatment Upcoming Encounters Date Type Specialty Care Team Description 12/20/2021 Office Visit Wound Care Luis Camara DPM [address] [facility] [address] (Wo rk) 01/21/2022 Office Visit Gastroenterology Juanis Levi [address] [place] [address] Luis Fernando Miles MD 516 [facility] [place], [place] [address] documented as of this encounter Visit Diagnoses Not on filedocumented in this encounter Care Teams Nurses Superintendent Relationship Specialty Start Date End Date None, Bfp PCP - General 03/02/99 04/12/12 Edgar Alfredo MD PCP - General Family Practice 04/13/12 08/11/14 [address] [facility] [address] [place] [phone] documented as of this encounter
--- OUTSIDE RECORDS SUMMARY | 2021-12-05 19:35 | XMS_ITS | Encounter Summary ---
:1980 Author Organization [place] Address [address] [facility] [place] [address] Care Team Providers Name Role Phone None, Bfp Primary Care Provider Unavailable Encounter Details Date Type Department Care Team Description 01/11/2005 Discharge Summary (Civil Designer) Unknown , Provider Social History Tobacco Use Types Packs/Day Years Used Date Smoking Tobacco: Never Assessed Sex Assigned at Date Recorded Female 01/14/2020 10:57 AM MANAGER INCOME TAX documented as of this encounter Plan of Treatment Upcoming Encounters Date Type Specialty Care Team Description 12/20/2021 Office Visit Wound Care Luis Camara DPM [address] [place], [place] [phone] (Wo rk) 01/21/2022 Office Visit Gastroenterology Juanis Levi [address] [place] [phone] Luis Fernando Miles MD 516 [facility] [place], [place] [address] documented as of this encounter Visit Diagnoses Not on filedocumented in this encounter Care Teams Bakery Machine Mechanic Supervisor Relationship Specialty Start Date End Date None, Bfp PCP - General 03/02/99 04/12/12 documented as of this encounter
--- OUTSIDE RECORDS SUMMARY | 2021-12-05 19:35 | XMS_ITS | Encounter Summary ---
:1980 Author Organization [place] Address [address] [place] [address] Care Team Providers Name Role Phone None, Bfp Primary Care Provider Unavailable Encounter Details Date Type Department Care Team Description 10/04/2003 Emergency room Shavonne Ansari MD EMERGENCY PHYSIC [facility] [address] [facility] [address] [place] [address] (Wo rk) Social History Tobacco Use Types Packs/Day Years Used Date Smoking Tobacco: Never Assessed Sex Assigned at Date Recorded Female 01/14/2020 10:57 AM MIXER WHIPPED TOPPING documented as of this encounter ED Notes [...] Acute pyelonephritis. SHAVONNE ANSARI MD MT: Document: [id number] [place], [place] Name: STEPHANI MCCORMICK EMERGENCY ROOM ENCOUNTER Page 2 of 2 LCN: ER DSC: 09/21/2003 [place], [place] Name: STEPHANI MCCORMICK MR#: : Admit Date: [id number] 1980 09/21/2003 Doctor: SHAVONNE ANSARI MD EMERGENCY ROOM ENCOUNTER Page 1 of 2 documented in this encounter Plan of Treatment Upcoming Encounters Date Type Specialty Care Team Description 12/20/2021 Office Visit Wound Care Luis Camara DPM [address] [place], [place] [phone] (Wo rk) 01/21/2022 Office Visit Gastroenterology Juanis Levi [address] [place] [address] Luis Fernando Miles MD 516 [facility] 2[address] [place] [address] documented as of this encounter Visit Diagnoses Not on filedocumented in this encounter Care Teams Mix Technician Relationship Specialty Start Date End Date None, Bfp PCP - General 03/02/99 04/12/12 documented as of this encounter
--- OUTSIDE RECORDS SUMMARY | 2021-12-05 19:35 | XMS_ITS | Encounter Summary ---
:1980 Author Organization [place] Address [facility] [place] [address] Care Team Providers Name Role Phone None, Bfp Primary Care Provider Unavailable Encounter Details Date Type Department Care Team Description 04/11/2010 Emergency room [facility] Results EMERGENCY PHYSI KALLIE SWIFT [address] [place], [place] [address] Social History Tobacco Use Types Packs/Day Years Used Date Smoking Tobacco: Never Assessed Sex Assigned at Date Recorded Female 01/14/2020 10:57 AM SOIL AND PLANT SCIENTIST documented as of this encounter Progress Notes Interface, Internist - 04/12/2010 5:49 AM SOIL AND PLANT SCIENTIST FINAL Chief Complaint - History of Present [...] or malaise. Of note, the patient's regular FINANCIAL COMPLIANCE EXAMINER is a Dr. White. Medications - Medication: [...] done in the presence of a female microsoft dynamics manager architect. The patient was sent for a [place] [...] MT: Name: STEPHANI MCCORMICK MRN: [id number] Account: [id number] : 1980 Visit Date: 04/11/2010 Document: [id number] AND PLANT SCIENTIST documented in this encounter Plan of Treatment Upcoming Encounters Date Type Specialty Care Team Description 12/20/2021 Office Visit Wound Care Luis Camara DPM [address] [place], [place] [address] (Wo rk) 01/21/2022 Office Visit Gastroenterology Juanis Levi [address] [place] [address] Luis Fernando Miles MD 516 [facility] 2[address] [place], [place] [address] documented as of this encounter Visit Diagnoses Not on filedocumented in this encounter Care Teams Sports Activities Foul Judge Relationship Specialty Start Date End Date None, Bfp PCP - General 03/02/99 04/12/12 documented as of this encounter
--- OUTSIDE RECORDS SUMMARY | 2021-12-05 19:35 | XMS_ITS | Clinical Summary ---
:1980 Author Organization [facility] Address [address] [place] [address] Care Team Providers Name Role Phone Unavailable [...]
--- OUTSIDE RECORDS SUMMARY | 2021-12-05 19:35 | XMS_ITS | Encounter Summary ---
:1980 Author Organization [place] Address [address] [facility] [place] [address] Care Team Providers Name Role Phone None, Bfp Primary Care Provider Unavailable Encounter Details Date Type Department Care Team Description 01/06/2005 Admission H&P (Motor Scooter Mechanic) Unknown, Pr ovider Social History Tobacco Use Types Packs/Day Years Used Date Smoking Tobacco: Never Assessed Sex Assigned at Date Recorded Female 01/14/2020 10:57 AM CEMENTER documented as of this encounter Plan of Treatment Upcoming Encounters Date Type Specialty Care Team Description 12/20/2021 Office Visit Wound Care Luis Camara DPM [address] [place] [address] (Wo rk) 01/21/2022 Office Visit Gastroenterology Juanis Levi [address] [place] [phone] Luis Fernando Miles MD [address] [address] documented as of this encounter Visit Diagnoses Not on filedocumented in this encounter Care Teams Needle Punch Machine Operator Relationship Specialty Start Date End Date None, Bfp PCP - General 03/02/99 04/12/12 documented as of this encounter
--- OUTSIDE RECORDS SUMMARY | 2021-12-05 19:35 | XMS_ITS | Encounter Summary ---
:1980 Author Organization [place] Address [address] [place] [address] Care Team Providers Name Role Phone None, Bfp Primary Care Provider Unavailable Encounter Details Date Type Department Care Team Description 04/11/2010 Results Only [facility] Breanna Main, Hospital Results EMERGENCY PHYSIC JAZZ SWIFT [address] [place], [place] [phone] (Wo rk) Social History Tobacco Use Types Packs/Day Years Used Date Smoking Tobacco: Never Assessed Sex Assigned at Date Recorded Female 01/14/2020 10:57 AM MAINTENANCE ASSOCIATE documented as of this encounter Plan of Treatment Upcoming Encounters Date Type Specialty Care Team Description 12/20/2021 Office Visit Wound Care Luis Camara DPM [address] [place] [address] (Wo rk) 01/21/2022 Office Visit Gastroenterology Juanis Levi [address] [place] [address] Luis Fernando Miles MD 516 [facility] [address] [place], [place] [phone] documented as of this encounter Procedures Procedure Name Priority Date/Time Associated Diagnosis Comme nts US OB > 14 WEEKS Routine 04/11/2010 12:40 AM Resu lts for this MAINTENANCE ASSOCIATE procedure are i n the results section. US ABDOMEN LIMITED Routine 04/11/2010 12:39 AM Re sults for this MAINTENANCE ASSOCIATE procedure are i n the results section. documented in this encounter Results US OB 14 + weeks single or first gestation (04/11/2010 12:40 AM MAINTENANCE ASSOCIATE) Anatomical Region Laterality Modality Abdomen/Pelvis Other Specimen (Source) Anatomical Collection Method Collection Time Re ceived Time Location / / Volume Laterality 04/11/2010 12:40 AM MAINTENANCE ASSOCIATE Impressions 04/11/2010 5:37 PM MAINTENANCE ASSOCIATE ULTRASOUND OBSTETRIC SECOND TO THIRD TRI MESTER [...] hours. Breanna Main MD IMG US ORDERABLES US Abdomen Limited* (04/11/2010 12:39 AM MAINTENANCE ASSOCIATE) Anatomical Region Laterality Modality Abdomen/Pelvis Other Specimen (Source) Anatomical Collection Method Collection Time Re ceived Time Location / / Volume Laterality 04/11/2010 12:39 AM MAINTENANCE ASSOCIATE Impressions 04/11/2010 8:42 PM MAINTENANCE ASSOCIATE ULTRASOUND ABDOMEN LIMITED April 11, 2010 12:39:00 [...] on filedocumented in this encounter Care Teams Block Setter Gypsum Relationship Specialty Start Date End Date None, Bfp PCP - General 03/02/99 04/12/12 documented as of this encounter
--- OUTSIDE RECORDS SUMMARY | 2021-12-05 19:35 | XMS_ITS | Encounter Summary ---
:1980 Author Organization [place] Address [address] [facility] [place] [address] Care Team Providers Name Role Phone None, Bfp Primary Care Provider Unavailable Encounter Details Date Type Department Care Team Description 05/17/2008 Historic Notes INTERFACED REPORT Interface, Transcript onMD Social History Tobacco Use Types Packs/Day Years Used Date Smoking Tobacco: Never Assessed Sex Assigned at Date Recorded Female 01/14/2020 10:57 AM PILOT PLANT TECHNICIAN documented as of this encounter Progress Notes Interface, Pmo Business Analyst - 05/06/2010 5:46 AM CDT Allergies ?? [...] Visit Wound Care Luis Camara DPM [address] [place], [place] [address] (Wo rk) 01/21/2022 Office Visit Gastroenterology Juanis Levi [address] [place] [address] Luis Fernando Miles MD [address] [place] [address] documented as of this encounter Visit Diagnoses Not on filedocumented in this encounter Care Teams Hospital Aides And Assistants Teacher Relationship Specialty Start Date End Date None, Bfp PCP - General 03/02/99 04/12/12 documented as of this encounter
--- OUTSIDE RECORDS SUMMARY | 2021-12-05 19:35 | XMS_ITS | Encounter Summary ---
:1980 Author Organization [place] Address [address] [facility] [place] [place] [address] Care Team Providers Name Role Phone None, Bfp Primary Care Provider Unavailable Reason for Visit Reason Comments Recheck Medication please ask about recent PAP date- PCP patient needs LDL goal noted Encounter Details Date Type Department Care Team Description 10/24/2011 Office Visit [facility] Ashly Gauthier MD (Primary Dx) [address] [facility] [address] [facility] [address] [place] [phone] Social History Tobacco Use Types Packs/Day Years Used Date Smoking Tobacco: Every Day Cigarettes 0.5 10 Smokeless Tobacco: Never Alcohol Use Standard Drinks/Week Comments No 0 (1 standard drink = 0.6 oz pure alcoho l) Sex Assigned at Date Recorded Female 01/14/2020 10:57 AM FREELANCE TRANSLATOR documented as of this encounter Last Filed [...] to receive sub maintenance Was going to [facility] and was on 24 mg Subutex daily [...] Script for suboxone was faxed to the [facility] >> BRYNN HAMMOND FriOct 24, 2011 [...] Wound Care Luis Camara DPM [address] [place], [place] [phone] (Wo rk) 01/21/2022 Office Visit Gastroenterology Juanis Levi [address] [place] [address] Luis Fernando Miles MD [address] [address] documented as of this encounter Visit Diagnoses Diagnosis Opiate dependence (H) - Primary Opioid type dependence, unspecified documented in this encounter Care Teams Dinker Relationship Specialty Start Date End Date None, Bfp PCP - General 03/02/99 04/12/12 documented as of this encounter
--- OUTSIDE RECORDS SUMMARY | 2021-12-05 19:35 | XMS_ITS | Encounter Summary ---
:1980 Author Organization [place] Address [address] [facility] [address] Care Team Providers Name Role Phone None, Bfp Primary Care Provider Unavailable Encounter Details Date Type Department Care Team Description 01/06/2005 Results Only [facility] Edgar Alfredo MD [facility] Radiology Results [address] [place] [address] (Wo rk) Social History Tobacco Use Types Packs/Day Years Used Date Smoking Tobacco: Never Assessed Sex Assigned at Date Recorded Female 01/14/2020 10:57 AM ROSE GROWER documented as of this encounter Plan of Treatment Upcoming Encounters Date Type Specialty Care Team Description 12/20/2021 Office Visit Wound Care Luis Camara DPM [address] [place], [place] [phone] (Wo rk) 01/21/2022 Office Visit Gastroenterology Juanis Levi [address] [place] [address] Luis Fernando Miles MD 516 [facility] [address] [place], [place] [address] documented as of this encounter Procedures Procedure Name Priority Date/Time Associated Diagnosis Comme nts HC X-RAY FOOT 2 Routine 01/06/2005 1:46 PM Result s for this VIEWS ROSE GROWER procedure are i n the results section. HC X-RAY ANKLE 2 Routine 01/06/2005 1:45 PM Resul ts for this VIEWS ROSE GROWER procedure are i n the results section. documented in this encounter Results X-RAY FOOT 2 VW (01/06/2005 1:46 PM ROSE GROWER) Anatomical Region Laterality Modality Other Specimen (Source) Anatomical Collection Method Collection Time Re ceived Time Location / / Volume Laterality 01/06/2005 1:46 PM ROSE GROWER Impressions 01/07/2005 4:29 PM ROSE GROWER 2 VIEW RIGHT FOOT AND 2 VIEW [...] the medial base of the 1st metatarsal etss ne. This also appears acute and shows [...] X-RAY ANKLE 2 VW (01/06/2005 1:45 PM ROSE GROWER) Anatomical Region Laterality Modality Other Specimen (Source) Anatomical Collection Method Collection Time Re ceived Time Location / / Volume Laterality 01/06/2005 1:45 PM ROSE GROWER Impressions 01/07/2005 4:29 PM ROSE GROWER 2 VIEW RIGHT FOOT AND 2 VIEW [...] on filedocumented in this encounter Care Teams Table Tender Sludge Relationship Specialty Start Date End Date None, Bfp PCP - General 03/02/99 04/12/12 documented as of this encounter
--- OUTSIDE RECORDS SUMMARY | 2021-12-05 19:35 | XMS_ITS | Encounter Summary ---
:1980 Author Organization [place] Address [address] [facility] 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) Unknown , Provider Social History Tobacco Use Types Packs/Day Years Used Date Smoking Tobacco: Never Assessed Sex Assigned at Date Recorded Female 01/14/2020 10:57 AM REFORMATORY ATTENDANT documented as of this encounter Plan of Treatment Upcoming Encounters Date Type Specialty Care Team Description 12/20/2021 Office Visit Wound Care Luis Camara DPM [address] [place], [place] [address] (Wo rk) 01/21/2022 Office Visit Gastroenterology Juanis Levi [address] [place] [phone] Luis Fernando Miles MD 516 [facility] [place], [place] [address] documented as of this encounter Visit Diagnoses Not on filedocumented in this encounter Care Teams Chair Inspector And Leveler Relationship Specialty Start Date End Date None, Bfp PCP - General 03/02/99 04/12/12 documented as of this encounter
--- OUTSIDE RECORDS SUMMARY | 2021-12-05 19:35 | XMS_ITS | Encounter Summary ---
:1980 Author Organization [place] Address [address] [place] [address] Care Team Providers Name Role Phone None, Bfp Primary Care Provider Unavailable Encounter Details Date Type Department Care Team Description 05/17/[address] [facility] Philippe Gonzalez MD [facility] EMERGENCY Y [facility] Results [address] [place], [place] [address] (Wo rk) Social History Tobacco Use Types Packs/Day Years Used Date Smoking Tobacco: Never Assessed Sex Assigned at Date Recorded Female 01/14/2020 10:57 AM OVEN TENDER documented as of this encounter Progress [...] instructed to try using one of the iexa-cne-srikxcz gel heel inserts. If this is inadequate, she will be referred to orthopedics and can follow upwith Dr. Tipton this coming week. Electronically signed on 05/29/2008 16:12 by AKIRA GONZALEZ MD [place]: [id number] Name: STEPHANI MCCORMICK MRN: [id number] Account: [id number] : 1980 Visit Date: 05/17/2008 Document: [id number] documented in this encounter Plan of Treatment Upcoming Encounters Date Type Specialty Care Team Description 12/20/2021 Office Visit Wound Care Luis Camara DPM [address] [place] [address] (Wo rk) 01/21/2022 Office Visit Gastroenterology Juanis Levi [address] [place] [address] Luis Fernando Miles MD 6 [facility] 2A [place] [address] documented as of this encounter Visit Diagnoses Not on filedocumented in this encounter Care Teams Assistant Research Scientist Relationship Specialty Start Date End Date None, Bfp PCP - General 03/02/99 04/12/12 documented as of this encounter
--- OUTSIDE RECORDS SUMMARY | 2021-12-05 19:35 | XMS_ITS | Encounter Summary ---
:1980 Author Organization [place] Address [address] [place] [address]. 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
--- OUTSIDE RECORDS SUMMARY | 2021-12-05 19:35 | XMS_ITS | Encounter Summary ---
:1980 [facility] Address [address] [place] [address] Care Team Providers Name Role Phone Unavailable Primary Care Provider Unavailable Reason for Visit Procedure/Equipment (Routine) - Incomplete Specialty Diagnoses / Procedures Referred By Contact Refer red To Contact Diagnoses Chronic pain of left knee Jamie Sr MBBS Procedures XR Knee Lt 3 Views [address] [place], [place] [address] Referral ID Status Reason Start Date Expiration Date Visits V isits Requested Authorized [id number] Incomplete 08/26/2020 11/25/2021 1 1 Encounter Details Date Type Department Care Team Description 08/26/2020 Ancillary Procedure [facility] Canceled (Patient [id number] Request) [place] [address] Social History Tobacco Use Types Packs/Day Years Used Date Smoking Tobacco: Every Day Smokeless Tobacco: Never Sex Assigned at Date Recorded Not on file documented as of this encounter Plan of Treatment Not on filedocumented as of this encounter Visit Diagnoses Not on filedocumented in this encounter
--- OUTSIDE RECORDS SUMMARY | 2021-12-05 19:35 | XMS_ITS | Encounter Summary ---
:1980 Author Organization [place] Address [address] [place] [address] Care Team Providers Name Role Phone None, Bfp Primary Care Provider Unavailable Encounter Details Date Type Department Care Team Description 08/30/2006 Historic Results [facility] Do nuno Barillas MD [facility] [address] [place] [address] [place] [address] (Wo rk) Social History Tobacco Use Types Packs/Day Years Used Date Smoking Tobacco: Never Assessed Sex Assigned at Date Recorded Female 01/14/2020 10:57 AM FLOWER GRADER documented as of this encounter Plan of Treatment Upcoming Encounters Date Type Specialty Care Team Description 12/20/2021 Office Visit Wound Care Luis Camara DPM [address] [place], [place] [phone] (Wo rk) 01/21/2022 Office Visit Gastroenterology Juanis Levi [address] [place] [address] Luis Fernando Miles MD [address] [address] documented as of this encounter [...] (ABNORMAL) CRP inflammation (08/30/2006 3:06 PM CDT) [facility] Method Time Signature CRP Inflammation 8.6 (H) 0.0 - 8.0 MISYS mg/L Specimen Anatomical Collection Method Collection Time Receive d Time (Source) Location / / Volume Laterality 08/30/2006 3:06 PM 7 2:52 CDT PM CDT Inder Barillas MD LAB - BLOOD ORDERABLES Performing Organization Address City/State/ZIP Code Phon e Number MISYS Hemogram differential and platelet (08/30/2006 3:06 PM CDT) [facility] Method Time Signature [id number] - [...] LAB - BLOOD ORDERABLES Performing Organization Address [facility] Phon e Number MISYS Lymes antibodies total [...] to Borrelia ?b urgdorferi detected. Performed by [facility], [address] [place] [id number] [email or web address], ??Scout Goodman MD - Lab. Director Specimen Anatomical Collection Method Collection Time Receive d Time (Source) Location / / Volume Laterality 08/30/2006 3:06 PM 7 2:52 CDT PM CDT Inder Barillas MD LAB - BLOOD ORDERABLES Performing Organization Address [facility] Phon e Number MISYS HCG qualitative [...] on filedocumented in this encounter Care Teams Stock Or Delivery Clerk Relationship Specialty Start Date End Date None, Bfp PCP - General 03/02/99 04/12/12 documented as of this encounter
--- OUTSIDE RECORDS SUMMARY | 2021-12-05 19:35 | XMS_ITS | Encounter Summary ---
:1980 Author Organization [place] Address [facility] [place] [address] Care Team Providers Name Role Phone None, Bfp Primary Care Provider Unavailable Reason for Visit Reason Onset Date Comments Medication Request 11/04/2011 Encounter Details Date Type Department Care Team Description 11/04/[address] 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 Telephone Encounter - Edgar Alfredo MD - [...] until . She can be reached at [phone]. documented in this encounter Plan of Treatment Upcoming Encounters Date Type Specialty Care Team Description 12/20/2021 Office Visit Wound Care Luis Camara DPM [address] [place], [place] [address] (Wo rk) 01/21/2022 Office Visit Gastroenterology Juanis Levi [address] [place] [phone] Luis Fernando Miles MD [address] [phone] documented as of this encounter Visit Diagnoses Diagnosis Opiate dependence (H) - Primary Opioid type dependence, unspecified documented in this encounter Care Teams Golf Club Weigher Relationship Specialty Start Date End Date None, Bfp PCP - General 03/02/99 04/12/12 documented as of this encounter
--- OUTSIDE RECORDS SUMMARY | 2021-12-05 19:35 | XMS_ITS | Encounter Summary ---
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 documented as of this encounter Plan of Treatment Upcoming Encounters Date Type Specialty Care Team Description 12/20/2021 Office Visit Wound Care Luis Camara, [place] [address] [place], [place] [address] (Wo rk) 01/21/2022 Office Visit Gastroenterology Juanis Levi [address] [place] [phone] Luis Fernando Miles MD 516 [facility] [place], [place] [address] documented as of this encounter Procedures Procedure [...] (FL, RH, SH) (05/24/2009 12:28 AM CDT) [facility] gist Method Time Signature Amphetamine Qual [...] filedocumented in this encounter Care Teams Assistant Product Manager Relationship Specialty Start Date End Date None, Bfp PCP - General 03/02/99 04/12/12 documented as of this encounter
--- OUTSIDE RECORDS SUMMARY | 2021-12-05 19:35 | XMS_ITS | Encounter Summary ---
:1980 Author Organization [place] Address [facility] [place] [address] Care Team Providers Name Role Phone None, Bfp Primary Care Provider Unavailable Encounter Details Date Type Department Care Team Description 01/05/2005 Historic Results [facility] Shukri Reddy MD Emergency Department [address] [address] [place] [phone] Social History Tobacco Use Types Packs/Day Years Used Date Smoking Tobacco: Never Assessed Sex Assigned at Date Recorded Female 01/14/2020 10:57 AM SOCK KNITTER documented as of this encounter Plan of Treatment Upcoming Encounters Date Type Specialty Care Team Description 12/20/2021 Office Visit Wound Care Luis Camara DPM [address] [place], [place] [phone] (Wo rk) 01/21/2022 Office Visit Gastroenterology Juanis Levi [address] [place] [address] Luis Fernando Miles MD [address] [phone] documented as of this encounter Procedures Procedure Name Priority Date/Time Associated Comments Diagnosis UA MACROSCOPIC WITH STAT 01/05/2005 8:45 PM Re sults for this REFLEX TO MICRO SOCK KNITTER procedure ar e in the results section. URINE MICROSCOPIC Routine 01/05/2005 8:45 PM Resu lts for this EXAM SOCK KNITTER procedure are i n the results section. DRUG ABUSE SCREEN 8 STAT 01/05/2005 8:45 PM Re sults for this URINE (UR) SOCK KNITTER procedure are i n the results section. documented in this encounter Results (ABNORMAL) UA macroscopic with reflex to micro (01/05/2005 8:45 PM SOCK KNITTER) [facility] Method Time Signature Source Midstream MISYS Urine Color Urine Yellow MISYS Appearance Urine Clear MISYS Glucose Urine Negative NEG mg/dL MISYS Bilirubin Urine Negative NEG MISYS Ketones Urine Negative NEG mg/dL MISYS Specific [place] 1.034 1.003 - MISYS Urine 1.035 Blood [...] Volume Laterality 01/05/2005 8:45 PM 5 8:45 SOCK KNITTER PM SOCK KNITTER Shukri Reddy MD LAB - URINE ORDERABLES Performing Organization Address City/[facility]/ZIP Code Phon e Number MISYS (ABNORMAL) Drug abuse screen 8 urine (UR) (01/05/2005 8:45 PM SOCK KNITTER) [facility] Method Time Signature Amphetamine Qual Negative NEG [...] Volume Laterality 01/05/2005 8:45 PM 5 8:45 SOCK KNITTER PM SOCK KNITTER Shukri Reddy MD LAB - URINE ORDERABLES Performing Organization Address City/State/ZIP Code Phon e Number MISYS (ABNORMAL) Microscopic exam urine (01/05/2005 8:45 PM SOCK KNITTER) [facility] gist Method Time Signature WBC Urine [...] Volume Laterality 01/05/2005 8:45 PM 5 9:00 SOCK KNITTER PM SOCK KNITTER Shukri Reddy MD LAB - URINE ORDERABLES Performing Organization Address City/State/ZIP Code Phon e Number MISYS documented in this encounter Visit Diagnoses Not on filedocumented in this encounter Care Teams Supervisor Tan Room Relationship Specialty Start Date End Date None, Bfp PCP - General 03/02/99 04/12/12 documented as of this encounter
--- OUTSIDE RECORDS SUMMARY | 2021-12-05 19:35 | XMS_ITS | Encounter Summary ---
:1980 Author Organization [place] Address [address] [place] [address]. 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 Telephone Encounter - Marycarmen Specne - 10/16/2011 10:33 AM CDT Left message [...] Dosage (if available): 24mg tabs 3) Pharmacy: [facility] in [facility] Pt calling- stated she spoke with [...] Oct 23 appt. Please contact pt at [phone] documented in this encounter Plan of Treatment Upcoming Encounters Date Type Specialty Care Team Description 12/20/2021 Office Visit Wound Care Luis Camara DPM [address] [place], [place] [address] (Wo rk) 01/21/2022 Office Visit Gastroenterology Juanis Levi [address] [place] [address] Luis Fernando Miles MD 516 [facility] 2[address] [place], [place] [address] documented as of this encounter Visit Diagnoses Not on filedocumented in this encounter Care Teams Supervisor Water Softener Service Relationship Specialty Start Date End Date None, Bfp PCP - General 03/02/99 04/12/12 documented as of this encounter
--- OUTSIDE RECORDS SUMMARY | 2021-12-05 19:35 | XMS_ITS | Encounter Summary ---
:1980 [facility] Address [address] [place] [address] Care Team Providers Name Role Phone Unavailable Primary Care Provider Unavailable Reason for Visit Procedure/Equipment (Routine) - Incomplete Specialty Diagnoses / Procedures Referred By Contact Refer red To Contact Diagnoses Acute right ankle pain Jamie Sr MBBS Procedures XR Ankle Rt 3 Views [address] [place], [place] [address] Referral ID Status Reason Start Date Expiration Date Visits V isits Requested Authorized [id number] Incomplete 08/26/2020 11/25/2021 1 1 Encounter Details Date Type Department Care Team Description 08/26/2020 Ancillary Procedure [facility] Canceled (Patient [id number] Request) [place] [address] Social History Tobacco Use Types Packs/Day Years Used Date Smoking Tobacco: Every Day Smokeless Tobacco: Never Sex Assigned at Date Recorded Not on file documented as of this encounter Plan of Treatment Not on filedocumented as of this encounter Visit Diagnoses Not on filedocumented in this encounter
--- OUTSIDE RECORDS SUMMARY | 2021-12-05 19:35 | XMS_ITS | Encounter Summary ---
:1980 Author Organization [facility] Address [address] [place] [address] Care Team Providers Name Role Phone None, Bfp Primary Care Provider Unavailable Encounter Details Date Type Department Care Team Description 01/07/2005 Results Only [facility] molly Hdez MD [facility] Radiology Results [facility] [address] [place], [place] [address] (Wo rk) Social History Tobacco Use Types Packs/Day Years Used Date Smoking Tobacco: Never Assessed Sex Assigned at Date Recorded Female 01/14/2020 10:57 AM INSTALLER INSPECTOR FINAL documented as of this encounter Plan of Treatment Upcoming Encounters Date Type Specialty Care Team Description 12/20/2021 Office Visit Wound Care Luis Camara DPM [address] [place], [place] [id number] (Wo rk) 01/21/2022 Office Visit Gastroenterology Juanis Levi [address] [place] [address] Luis Fernando Miles MD [address] [facility] [address] [place], [place] [address] documented as of this encounter Procedures Procedure Name Priority Date/Time Associated Diagnosis Comme nts HC CT LOWER Routine 01/07/2005 9:00 PM Results f or this EXTREMITY W/O INSTALLER INSPECTOR FINAL procedure are in CONTRAST the results section. documented in this encounter Results CT SCAN LEG (01/07/2005 9:00 PM INSTALLER INSPECTOR FINAL) Anatomical Region Laterality Modality Other Specimen (Source) Anatomical Collection Method Collection Time Re ceived Time Location / / Volume Laterality 01/07/2005 9:00 PM INSTALLER INSPECTOR FINAL Impressions 01/08/2005 1:40 PM INSTALLER INSPECTOR FINAL ? CT STUDY OF RIGHT LOWER EXTREMITY [...] on filedocumented in this encounter Care Teams Brick Shader Relationship Specialty Start Date End Date None, Bfp PCP - General 03/02/99 04/12/12 documented as of this encounter
--- OUTSIDE RECORDS SUMMARY | 2021-12-05 19:35 | XMS_ITS | Encounter Summary ---
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 She is otherwise unemployed. PHYSICAL EXAMINATION: VITAL [...] MD MT: [id number] Name: STEPHANI MCCORMICK Account: [id number] : 1980 Visit Date: 05/23/2009 Document: [id number] documented in this encounter Plan of Treatment Upcoming Encounters Date Type Specialty Care Team Description 12/20/2021 Office Visit Wound Care Luis Camara DPM [address] [place], [place] [address] (Wo rk) 01/21/2022 Office Visit Gastroenterology Juanis Levi [address] [place] [phone] Luis Fernando Miles MD [address] [id number] documented as of this encounter Visit Diagnoses Not on filedocumented in this encounter Care Teams Carrier Driver Relationship Specialty Start Date End Date None, Bfp PCP - General 03/02/99 04/12/12 documented as of this encounter
--- OUTSIDE RECORDS SUMMARY | 2021-12-05 19:36 | XMS_ITS | Encounter Summary ---
:1980 Author Organization [facility] Address [address] [place] [address] Care Team Providers Name Role Phone Unavailable Primary Care Provider Unavailable Reason for Visit Reason Comments Knee Pain or Injury ANKLE PAIN Encounter Details Date Type Department Care Team Description 08/26/2020 Hospital Encounter [facility] [address] Aishwarya Marie MD Chronic pain of left knee; Urgent Care [address] Acute right ankle pain [address] [place] [address] [phone] Social History Tobacco Use Types Packs/Day Years [...]
--- OUTSIDE RECORDS SUMMARY | 2021-12-05 19:36 | XMS_ITS | Clinical Summary ---
:1980 Author Organization [facility] [place] [address] Care Team Providers Name Role Phone Luis Fernando Magana MD Primary Care Provider [phone] Allergies No known active allergies Medications [...] for Dr. Sayda HEREDIA signed for [facility]: Signed 10/25/14 REFERRING PHYSICIAN: Angelique Brewer [facility] [phone] Breanna Coleman [facility] [phone] SPECIALISTS: [facility] (pain MD?) EXCHANGE ENGINEER: Yesenia Zaman, [facility] C[facility] COORDINATION: Erika Galvan RN/Camryn Hernandez RN [phone] CONSULTS: Presented at Teresa/Gabriel Rounds on 11/03 NICU Consult/Tour: 11/10 at 12:30 [facility] Tour: [id number] Cardiac Surgery Consult: will not meet p renatal/Dummer PROCEDURES: CHECKLIST FOR SCHEDULING PRO CEDURES: Procedure: Induction Hospital: [place] Unit: L&D Date & Time of procedure: 12/06/14 at 12 00 Savage Score if induction: 6 Pertinent information: Gestational age on procedure date: 39w0d MD doing procedure: Hospitalist Date scheduled: 11/30/2014 Scheduling MD & RN: Lona Hernandez NP and Kae Guadarrama RN Hospitalist Delivery-Brianna Rodriguez notif ied: [phone]) Yes H&P and Plan in chart: Not Applicable MPP notified via [employer] inbox? Not Applicable On [facility] calendar? Not Applicable Amnio needed: No Amnio scheduled: Not Applicable Does NICU need notification: Yes NICU notification done: Yes (NICU ) PPTL permit signed: Not Applicable Patient notified of procedure date: Yes, Discussed: 11/30/14 Written admission instructions given to patient: Yes Destiny Herron NICU [phone] Peds Surgery Durga/Angelika [phone] Dr.Nagib Lozano Neurology [facility] Dr.Aliabadi Lozano Urology [phone] Heart Surgery Roland [phone] MEDS: Subutex Effexor Levothyroxine 125 mcg Wellbutrin [...] Await spontaneous labor, per Dr. Rikki Hernandez, [facility] Insufficient care 04/30/2009 Hepatitis C carrier [...] 9 ral ng na oz) Delivery Location: [facility] Comments: wt gain 25#. uncomplicat ed. dilated slowly. AROM. Uncomplicated delivery. 04/08/2005 Term 41w0d F Vag Living Complications: None Delivery Location: [place] 05/30/2006 Term 40w0d M Vag Living Delivery Location: [facility] 04/30/2009 Term 37w0d F Vag Epidural Living Delivery Location: [place] 10/01/2010 Term 40w0d M Vag Epidural N Demis e Delivery Location: [facility] 07/20/2012 Term 40w0d M Epidural, General Living Delivery Location: [place] 12/04/2014 Term 38w5d 2.49 kg (5 lb [...] Phone Addre ss Type Group [facility] [id number] 2021-Present [address] [place] [address] Advance Directives Latest Code Status on File Code Status Date Activated Date Inactivated Comments Full Code 12/04/2014 6:39 AM 12/07/2014 7:40 PM Full Code 12/03/2014 8:45 PM 12/04/2014 6:39 AM Full Code 12/03/2014 4:25 PM 12/03/2014 8:45 PM Full Code 12/03/2014 3:24 PM 12/03/2014 4:25 PM Full Code 04/30/2009 10:06 PM 05/02/2009 3:13 PM Care Teams Internal Audit Manager Relationship Specialty Start Date End Date Luis Fernando Magana MD PCP - General Family Practice 06/24/13 [address] [place] [address]
--- OUTSIDE RECORDS SUMMARY | 2021-12-05 19:38 | XMS_ITS | Encounter Summary ---
:1980 Author Organization [place] Address [facility] [place] [address] Care Team Providers Name Role Phone Deann Pina APRN CONVENTION PLANNER Unavailable [phone] Juanis Mckenzie Primary Care Provider Reason for Visit Auth/Cert Specialty Diagnoses / Procedures Referred By Contact Refer red To Contact Med Surg Diagnoses Complicated Osteomyelitis Ur Ortho [address] [place] [address] [place] [address] Phone: Fax: Referral ID Status Reason Start Date Expiration Date Visits Requ ested Visits Authorized [id number] 1 1 Encounter Details Date Type Department Care Team Description 07/[facility]20[facility] [address] [place] [address] Osteomyelitis of right ankle, unspecifie d type (H) (Primary Dx); 07/23/2021 Encounter [facility] Med Surg Jaime Rae MD [address] [place] [address] [address] [place] [address] Anxiety; Orthopedic Alcohol use disorder, severe , dependence (H); [address] [place] [address] [place] [address] Social History Tobacco Use Types Packs/Day Years Used Date Smoking Tobacco: Every Day Cigarettes 0.3 10 Smokeless Tobacco: Never Comments: 5-8 cigarettes a day Alcohol Use Standard Drinks/Week Comments Not Currently 0 (1 standard drink = 0.6 oz pure alcoho l) sober since 08/2020 Sex Assigned at Date Recorded Female 01/14/2020 10:57 AM IRB COMPLIANCE COORDINATOR documented as of this encounter Last [...] Howell MD - 07/23/2021 7:40 AM CDT [facility] Hospitalist Discharge Summary Date of Admission: 07/06/2021 Date of Discharge: 07/23/2021 Discharging Provider: Elizabeth Howell MD Discharge Service: Hospitalist Service, [facility] TEAM 17 Discharge Diagnoses # R [...] Follow-ups Needed After Discharge Follow-up Appointments Adult [facility] Follow-up and recommended labs and tests Follow up with Dr Camara or Morgan with Podiatry in 1-2 weeks. Clinic phone number is [phone] Follow up with Plastic Surgery in 2 weeks. Follow up with infectious disease 4-6 weeks. Follow-up Labs: Weekly CBC w diff, BMP, CRP. Please have labs faxed to ID clinic. Appointments on [place] and/or [facility] (with [facility] or [facility] provider or service). Call [phone] if you haven't heard regarding these appointments [...] anxiety, and tobacco abuse??admitted on 07/06/21 from [facility] for further care of R ankle osteomyelitis by Orthopedics, Plastics, and Infectious Disease.? 07/19: Per patient request: Increased Subutex dose to 8 mg 3 times daily, ENTRY ANALYST dose. Schedule Robaxin 750 3 times daily. [...] epic for recommendations.. ??>Pain control: Currently controlled. -Continue??ENTRY ANALYST??Suboxone 8mg tid ??; scheduled APAP 975mg TID, [...] allergenic polyurethane foam dressings (Mepitac tape, Sorbiview, [id number]) over occlusive adhesive semipermeable gauze dressings; WOC [...] improving.?? # Alcohol use disorder.?? HCV quant 776356??at OSH. ??AST 117, ALT 44, and AP [...] with periods of confusion early in admission. ??[place] to be??toxic vs metabolic??03/21 ?withdrawal, infection, sepsis. ??Utox positive only for [...] IP CONSULT FOR [facility] PHYSICAL THERAPY ADULT IP CONSULT OCCUPATIONAL THERAPY ADULT IP CONSULT INFECTIOUS DISEASE [facility] ADULT IP CONSULT ORTHOPAEDIC SURGERY ADULT/PEDS IP CONSULT WOUND OSTOMY CONTINENCE NURSE IP CONSULT SOCIAL WORK IP CONSULT PLASTIC SURGERY IP CONSULT WOUND OSTOMY CONTINENCE NURSE IP CONSULT PHARMACY TO DOSE [facility] DERMATOLOGY IP CONSULT Code Status Full Code Time Spent on this Encounter Jaime Powers MD, personally saw the patient today and spent greater than 30 minutes discharging this patient. Elizabeth Howell MD [facility] MED SURG ORTHOPEDIC [address] [place] [phone] Physical Exam Vital Signs: Temp: 98.6 ??F [...] performing Friday and Friday VAC changes Adult [facility] Follow-up and recommended labs and tests Follow up with Dr Camara or Morgan with Podiatry in 1-2 weeks. Clinic phone number is [phone] Follow up with Plastic Surgery in 2 weeks. Follow up with infectious disease 4-6 weeks. Follow-up Labs: Weekly CBC w diff, BMP, CRP. Please have labs faxed to ID clinic. Appointments on [place] and/or [facility] (with [facility] or [facility] provider or service). Call [phone] if you haven't heard regarding these appointments [...] MD Echo Complete Value LVEF 55-60% Narrative [id number]^BUTCH^JAIME [facility] [facility] [address] [place] [id number] Name: DEANN KING : 1980 Study Date: 07/08/2021 12:07 PM Age: 40 yrs Gender: Female Patient Location: [facility] Reason For Study: [...] Qty: 90 tablet, Refills: 0 Comments: JAMES: [id number] Associated Diagnoses: Opioid use disorder, severe, in [...] Rae MD - 07/21/2021 12:29 PM CDT [facility] Hospitalist Discharge Summary Date of Admission: 07/06/2021 Date of Discharge: 07/21/2021 Discharging Provider: Jaime Rae MD Discharge Service: Hospitalist Service, [facility] TEAM 17 Discharge Diagnoses # R [...] Follow-ups Needed After Discharge Follow-up Appointments Adult [facility] Follow-up and recommended labs and tests Follow up with Dr Camara or Morgan with Podiatry in 1-2 weeks. Clinic phone number is [phone] Follow up with Plastic Surgery in 2 weeks. Follow up with infectious disease 4-6 weeks. Follow-up Labs: Weekly CBC w diff, BMP, CRP. Please have labs faxed to ID clinic. Appointments on [place] and/or [facility] (with [facility] or [facility] provider or service). Call [phone] if you haven't heard regarding these appointments [...] anxiety, and tobacco abuse??admitted on 07/06/21 from [facility] for further care of R ankle osteomyelitis by Orthopedics, Plastics, and Infectious Disease.? 07/19: Per patient request: Increased Subutex dose to 8 mg 3 times daily, ENTRY ANALYST dose. Schedule Robaxin 750 3 times daily. [...] epic for recommendations.. ??>Pain control: Currently controlled. -Continue??ENTRY ANALYST??Suboxone 8mg tid ??; scheduled APAP 975mg TID, [...] allergenic polyurethane foam dressings (Mepitac tape, Sorbiview, [id number]) over occlusive adhesive semipermeable gauze dressings; WOC [...] improving.?? # Alcohol use disorder.?? HCV quant 391605??at OSH. ??AST 117, ALT 44, and AP [...] with periods of confusion early in admission. ??[place] to be??toxic vs metabolic??2/2 ?withdrawal, infection, sepsis. [...] IP CONSULT FOR [facility] PHYSICAL THERAPY ADULT IP CONSULT OCCUPATIONAL THERAPY ADULT IP CONSULT INFECTIOUS DISEASE [facility] ADULT IP CONSULT ORTHOPAEDIC SURGERY ADULT/PEDS IP [...] minutes discharging this patient. Jaime Rae MD [facility] MED SURG ORTHOPEDIC [address] [place] [phone] Physical Exam Vital Signs: Temp: 98.3 ??F [...] performing Friday and Friday VAC changes Adult [facility] Follow-up and recommended labs and tests Follow up with Dr Camara or Morgan with Podiatry in 1-2 weeks. Clinic phone number is [phone] Follow up with Plastic Surgery in 2 weeks. Follow up with infectious disease 4-6 weeks. Follow-up Labs: Weekly CBC w diff, BMP, CRP. Please have labs faxed to ID clinic. Appointments on [place] and/or [facility] (with [facility] or [facility] provider or service). Call [phone] if you haven't heard regarding these appointments [...] MD Echo Complete Value LVEF 55-60% Narrative [id number]^BUTCH^JAIME [facility] [facility] [address] [place] [address] Name: DEANN KING : 1980 Study Date: 07/08/2021 12:07 PM Age: 40 yrs Gender: Female Patient Location: [facility] Reason For Study: [...] Qty: 90 tablet, Refills: 0 Comments: SIMRANBHARAT: [id number] Associated Diagnoses: Opioid use disorder, severe, in [...] with vac drape prior to applying sponge allergy nurse to assess integrity of dressing and ensure [...] from the original note were not included. [facility] Nurse Inpatient Assessment Today's Assessment: Right [...] with vac drape prior to applying sponge allergy nurse to assess integrity of dressing and ensure [...] and Nurse WOC Nurse follow-up plan:Friday/ Notify [facility] if wound(s) deteriorate. Nursing to notify the [...] 19 Lisa Chandler RN, CWOCN Dept. Pager: [phone] Dept. Office Number: [phone] Tiffanie Figueroa RN - 07/23/2021 10:17 AM CDT Care Management Discharge Note Discharge Date: 07/23/2021 Discharge Disposition: TCU PAS Confirmation Code: [id number] Education Provided on the Discharge Plan: yes Persons Notified of Discharge Plans: patient and mother, So. Patient/Family in Agreement with the Plan: yes Handoff Referral Completed: Yes Additional Information: Plan for patient to discharge to TCU at 4pm today pending staffing. RNCC available as needed. Update 1400: Patient will discharge to TCU at 1600. roofing layer and bedside RN aware. Bedside RN toarrange transport at 1600. RNCC available as needed. Dr[facility] Sub[facility] at discharge. Tiffanie Machado RN, BSN Care Mgr, 5 Ortho Pager Jaime Rae MD - 07/22/2021 8:58 AM CDT [facility] Medicine Progress Note - Hospitalist Service, ONUR TEAM 17 Date of Admission: 07/06/2021 Assessment & Plan 40 year old female??with past medical history significant for opioid use disorder,??alcohol use disorder,??HCV, hypothyroidism, depression, anxiety, and tobacco abuse??admitted on 07/06/21 from [facility] for further care of R ankle osteomyelitis by Orthopedics, Plastics, and Infectious Disease.? Today's changes: 07/22/2021 Overall doing better. No new concern/changes by me Aw TCU. See discharge summary 07/21 07/19:??Per patient request: Increased Subutex dose to 8 mg 3 times daily, ENTRY ANALYST dose. ??Schedule Robaxin 750 3 times daily. [...] epic for recommendations.. ?>Pain control: Currently controlled. -Continue??ENTRY ANALYST??Suboxone ??8mg tid ??; scheduled APAP 975mg TID, [...] allergenic polyurethane foam dressings (Mepitac tape, Sorbiview, [id number]) over occlusive adhesive semipermeable gauze dressings; WOC [...] improving.?? # Alcohol use disorder.?? HCV quant 075628??at OSH. ??AST 117, ALT 44, and AP [...] with periods of confusion early in admission. ??[place] to be??toxic vs metabolic??2/2 ?withdrawal, infection, sepsis. [...] care was discussed with the Bedside Nurse, Care Mgr/Agricultural Chemicals Inspector and Patient. Jaime Rae MD Hospitalist Service, GOLD TEAM [address] [place] [address] Securely message with the Lim[employer] Console (learn more here) Text page via [facility] Paging/Directory Please see signed in provider [...] ??? venlafaxine 300 mg Oral Daily Elizabeth Subramanian, RN - 07/22/2021 8:23 AM CDT Care Management Follow Up Length of Stay (days): 16 Expected Discharge Date: 07/23/2021 Concerns to be Addressed: Discharge planning Patient plan of care discussed at interdisciplinary rounds: Yes Anticipated Discharge Disposition: TCU Anticipated Discharge Services: TCU Anticipated Discharge DME: Wound vac Education Provided on the Discharge Plan: yes Patient/Family in Agreement with the Plan: yes Additional Information: [facility] is unable to accept patient today due to staffing. Admissions requested that patient bebrought over there tomorrow at 1100. Notified charge nurse. Updated patient and she verbalized understanding and agreement to plan. MICHAEL Mehta RNCC RN Care Mgr Office: [phone] Pager: [phone] LIOT Cali Bullock MD - 07/21/2021 12:17 PM CDT Prolonged [...] to route this note to the appropriate [facility] pools: [facility] INFECTIOUS DISEASE ADULT [facility]/ID Clinic Information: [address] [facility], Clinic [address] [place] [id number] Cali Bullock MD on 07/21/2021 at 12:19 PM Cali Bullcok MD - 07/21/2021 12:03 PM CDT Images from the original note were not included. 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 Negativesince then. Confirmed with lab by [...] and worse about 2 weeks before [facility]. Also had periodic fever for 1-2 weeks - MRI right ankle wo contrast 06/29/21 - extensive tibiotalar erosions with large joint effusion and synovitis . - 06/30/21 ([facility]) - Right lateral ankle deep [...] subcutaneous tissue without exposed bone. - 07/02/21 ([facility]) - Right lateral ankle I&D, right lateral calcaneus hardware removal and ankle wound vac exchange. With repeat debridement the wound extended down to the bone and the hardware. All 5 screws were removed and plate was removed. The peroneal tendon and calcaneous were exposed, The defect now measured 7x 4 cm with a depth of 2 cm. - 07/04/21 ([facility]) - Right lateral ankle I&D and wound vac replacement. - 07/07/21 ([facility]) - Right ankle I&D and wound vac [...] VL since then), whot was admitted to [facility] from 06/28/21 - 07/06/21 with sepsis and [...] The patient was then transferred to the [facility] ([facility]) on 07/06/21 for further management due to [...] oxacillin susceptible. Cali Bullock MD Infectious Diseases [phone] Interval events Patient overall feels okay. Tolerating [...] abuse. ?? The patient was admitted to [facility] from 06/28/04 - 07/06/21 with sepsis and [...] the OR on 06/30/[address] [facility] and had a irrigation and debridement of right lateral ankle abscess and wound vac placement. The patient then returned to the OR on 07/02/21 for a repeat irrigation and debridement, lateralcalcaneus hardware removal, and wound vac exchanged. On 07/04/21, patient returned to OR for repeat I&D and wound vac exchange (see procedures below). The patient was then transferred to the [facility]) on 07/06/21 for further management due [...] I&D and wound vac replacement. - 07/07/21 ([facility]) - Right ankle I&D and wound vac [...] costs discussed: Not applicable PAS Confirmation Code: [id number] Patient/family educated on Medicare website which has current facility and service quality ratings: Yes, [facility] Education Provided on the Discharge Plan: yes Persons Notified of Discharge Plans: pt, ortho roofing layer Adam, Dr Rae Patient/Family in Agreement with the Plan: yes Handoff Referral Completed: Yes Additional Information: JACKIE met with pt and reviewed discharge plan, including referral to Senior Linkage line for PAS/RR. Ptwas very groggy so may not recall conversation. JACKIE updated roofing layer Adam and Dr. Rae with anticipated discharge to [facility] today @ 1:30. YADIRA Diamond MSW [facility] Friday Agricultural Chemicals Inspector Text paging available through [employer] on SCHEDit search SOCIAL WORK CUTTER HAND PAGER [phone] Friday ONLY! CUTTER HAND COVERAGE AFTER 1600 Alyce Israel MSW - [...] and a bed become available. ADDENDUM 10:23: Torpedo Worker informed by Leslie Parikh, rehabilitation medicine physician that there may be a discharge from TCU this afternoon and could possibly accept pt for admissions at 1:30. She is requesting Rapid Covid Test. SW informed Ortho roofing layer Cuate, who will request rapid COVID Test. SW completed PAS/RR on line: [id number]. Pt updated. YADIRA Diamond MSW [facility] Friday Agricultural Chemicals Inspector Text paging available through [employer] on [place] Intranet - search SOCIAL WORK CUTTER HAND PAGER [phone] Friday ONLY! CUTTER HAND COVERAGE AFTER 1600 Paulino Ybarra RN - [...] Rae MD - 07/20/2021 10:56 AM CDT [facility] Medicine Progress Note - Hospitalist Service, ONUR TEAM 17 Date of Admission: 07/06/2021 Assessment & Plan 40 year old female??with past medical history significant for opioid use disorder,??alcohol use disorder,??HCV, hypothyroidism, depression, anxiety, and tobacco abuse??admitted on 07/06/21 from [facility] for further care of R ankle osteomyelitis by Orthopedics, Plastics, and Infectious Disease.? Today's changes: 07/20/2021 Overall doing better. Rash, pruritus: improving. Pain controlled. No new concern/changes by me Aw tcu Ortho, ID, Dermatology, WOCN- following. 07/19: Per patient request: Increased Subutex dose to 8 mg 3 times daily, ENTRY ANALYST dose. Schedule Robaxin 750 3 times daily. [...] vac. WOCN consult. ?? - Pain control: -Continue??ENTRY ANALYST??Suboxone 8mg tid ??; scheduled APAP 975mg TID, [...] improving.?? # Alcohol use disorder.?? HCV quant 436560??at OSH. ??AST 117, ALT 44, and AP [...] with periods of confusion early in admission. ??[place] to be??toxic vs metabolic??2/2 ?withdrawal, infection, sepsis. [...] care was discussed with the Bedside Nurse, Care Mgr/Agricultural Chemicals Inspector and Patient. Jaime Rae MD Hospitalist Service, [facility] TEAM [address] [place] [address] Securely message with the Limbo Console (learn more here) Text page via [facility] Paging/Directory Please see signed in provider [...] from the original note were not included. [facility] Nurse Inpatient Assessment Today's Assessment: Right [...] with vac drape prior to applying sponge allergy nurse to assess integrity of dressing and ensure [...] Emily Macias RN BSN CWN Dept. Pager: [phone] Dept. Office Number: [phone] Jaime Rae MD - 07/19/2021 12:42 PM CDT [facility] Medicine Progress Note - Hospitalist Service, ONUR TEAM 17 Date of Admission: 07/06/2021 Assessment & Plan 40 year old female??with past medical history significant for opioid use disorder,??alcohol use disorder,??HCV, hypothyroidism, depression, anxiety, and tobacco abuse??admitted on 07/06/21 from [facility] for further care of R ankle osteomyelitis by Orthopedics, Plastics, and Infectious Disease.? Today's changes: 07/19/2021 Overall doing better. Rash, pruritus: improving. Per patient request: Increased Subutex dose to 8 mg 3 times daily, ENTRY ANALYST dose. Schedule Robaxin 750 3 times daily. [...] vac. WOCN consult. ?? - Pain control: -Continue??ENTRY ANALYST??Suboxone 8mg tid ??; scheduled APAP 975mg TID, [...] improving.?? # Alcohol use disorder.?? HCV quant 220000??at OSH. ??AST 117, ALT 44, and AP [...] with periods of confusion early in admission. ??[place] to be??toxic vs metabolic??03/21 ?withdrawal, infection, sepsis. ??Utoxpositive only for cannabinoids. [...] wound cares ? # Anemia??- Hgb 9.9. 6/. ??Possibly??acute blood loss plus??chronic illness, liver dysfunction. [...] care was discussed with the Bedside Nurse, Care Mgr/Agricultural Chemicals Inspector and Patient. Jaime Rae MD Hospitalist Service, GOLD TEAM [address] [place] [address] Securely message with the Limbo Console (learn more here) Text page via [employer] Paging/Directory Please see signed in provider for [...] continue to follow. Tiffanie Machado RN, BSN Care Mgr, 5 Ortho Pager Jah Thompson MD - [...] Rae MD - 07/18/2021 1:47 PM CDT [facility] Medicine Progress Note - Hospitalist Service, [facility] TEAM 17 Date of Admission: 07/06/2021 Assessment & Plan 40 year old female??with past medical history significant for opioid use disorder,??alcohol use disorder,??HCV, hypothyroidism, depression, anxiety, and tobacco abuse??admitted on 07/06/21 from [facility] for further care of R [...] vac. WOCN consult. ?? - Pain control: continue??ENTRY ANALYST??Suboxone 4mg Q4H (was taking this way at [...] improving.?? # Alcohol use disorder.?? HCV quant 122012??at OSH. ??AST 117, ALT 44, and AP [...] with periods of confusion early in admission. ??[place] to be??toxic vs metabolic??2/2 ?withdrawal, infection, sepsis. [...] managed on??buprenorphine??since 2009. ??On buprenorphine 4mg QID ENTRY ANALYST, increased to Q4H at OSH due to [...] care was discussed with the Bedside Nurse, Care Mgr/Agricultural Chemicals Inspector and Patient. Jaime Rae MD Hospitalist Service, GOLD TEAM [address] [place] [address] Securely message with the Limbo Console (learn more here) Text page via [employer] Paging/Directory Please see signed in provider for [...] from the original note were not included. [facility] Nurse Inpatient Assessment Today's Assessment: Right [...] control prior to re-starting VAC. Marilu Mar SUPERVISOR KNITTING with Ortho will order 4% topical lidicaine [...] with vac drape prior to applying sponge allergy nurse to assess integrity of dressing and ensure [...] 19 Lisa Chandler RN, CWOCN Dept. Pager: [phone] Dept. Office Number: [phone] Cali Bullock MD - 07/18/2021 12:44 PM CDT Images from the original note were not included. 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 negativesince then. Confirmed with lab by [...] and worse about 2 weeks before [facility]. Also had periodic fever for 1-2 weeks - MRI right ankle wo contrast 06/29/21 - extensive tibiotalar erosions with large joint effusion and synovitis . - 06/30/21 ([facility]) - Right lateral ankle deep [...] subcutaneous tissue without exposed bone. - 07/02/21 ([facility]) - Right lateral ankle I&D, right lateral calcaneus hardware removal and ankle wound vac exchange. With repeat debridement the wound extended down to the bone and the hardware. All 5 screws were removed and plate was removed. The peroneal tendon and calcaneous were exposed, The defect now measured 7x 4 cm with a depth of 2 cm. - 07/04/21 ([facility]) - Right lateral ankle I&D and wound vac replacement. - 07/07/21 ([facility]) - Right ankle I&D and wound vac [...] VL since then), whot was admitted to [facility] from 06/28/21 - 07/06/21 with sepsis and [...] The patient was then transferred to the [facility] ([facility]) on 07/06/21 for further management due to [...] clinical course Cali Bullock MD Infectious Diseases [phone] Interval events Patient overall feels okay. Wound [...] abuse. ?? The patient was admitted to [facility] from 06/28/04 - 07/06/21 with sepsis and [...] to the OR on 06[facility] [facility] and had a irrigation and debridement of right lateral ankle abscess and wound vac placement. The patient then returned to the OR on 07/02/21 for a repeat irrigation and debridement, lateralcalcaneus hardware removal, and wound vac exchanged. On 07/04/21, patient returned to OR for repeat I&D and wound vac exchange (see procedures below). The patient was then transferred to the [facility] ([facility]) on 07/06/21 for further management due to [...] I&D and wound vac replacement. - 07[facility]07/21 [facility] - Right ankle I&D and wound vac [...] Camara. Future Appointments Date Time Provider Department [facility] 07/07/2021 7:00 PM UR OT WAITLIST [facility] [place] 07/08/2021 8:00 AM Li Carmencita R Pt, PT [facility] [place] ?? Carlos A Thompson MD Orthopaedic Surgery, [...] place for 6 weeks IV antibiotics. This news writer noticed a redness around the PICC site and the dressing dislodged by patient. This news writer notified the bedside RN. Dishtank Operator made recommendations. See note. [facility] RN also assessed and redressed PICC site. Spoke with patient's mother, So, who agreed with the plan of patient going to TCU. So is caring for patient's three children while she is in the hospital. This news writer will continue to follow up on TCU referrals. Tiffanie Machado RN, BSN Care Mgr, 5 Ortho Pager Alma Oswald MD - 07/17/2021 2:45 PM CDT Images from the original note were not included. [facility] Inpatient Teledermatology Store and Forward [...] allergenic polyurethane foam dressings (Mepitac tape, Sorbiview, [id number]) over occlusive adhesive semipermeable gauze dressings; WOC [...] Oncol Nurs. 2012 May;16(2):E48-55. doi: 10.1188/12.[id number].E48-E55. PMID: [id number]. Thank you for this teledermatology consultation. Please do not hesitate to contact with any additional questions or concerns. Attending physician: Dr. Kathryn Oswald MD Dermatology Resident [facility] Relevant History: Based on chart review and direct communication with consulting team 40 year old female??with past medical history significant for opioid use disorder,??alcohol use disorder,??HCV, hypothyroidism, depression, anxiety, and tobacco abuse??admitted on 07/06/21 from [facility] for further care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 Deann King is a 40 year old female??with past medical history significant for opioid use disorder,??alcohol use disorder,??HCV, hypothyroidism, depression, anxiety, and tobacco abuse??admitted on 07/06/21 from [facility] for further care of R [...] 20 Emily Macias RN CWOCN Dept. Pager: [phone] Leora Oh MD - 07/06/2021 4:17 PM CDTAssociated Order(s): INFECTIOUS DISEASE [facility] ADULT IP CONSULT Images from the original note were not included. 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 - 07/02/21 ([facility]) - Right lateral ankle I&D, right lateral calcaneus hardware removal and ankle wound vac exchange. With repeat debridement the wound extended down to the bone and the hardware. All 5 screws were removed and plate was removed. The peroneal tendon and calcaneous were exposed, The defect now measured 7x 4 cm with a depth of 2 cm. - 07/04/21 ([facility]) - Right lateral ankle I&D [...] abuse. ?? The patient was admitted to [facility] from 06/28/04 -07/06/21 with sepsis and MSSA [...] The patient was then transferred to the [facility] ([facility]) on 07/06/21 for further management due to [...] grams IV q 8h - I called [facility] today and they informed me [...] abuse. ?? The patient was admitted to [facility] from 06/28/04 - 07/06/21 with sepsis and [...] the OR on 06/30/[address] Nguy[facility]n [facility] and had a irrigation and debridement of right lateral ankle abscess and wound vac placement. The patient then returned to the OR on 07/02/21 for a repeat irrigation and debridement, lateralcalcaneus hardware removal, and wound vac exchanged. On 07/04/21, patient returned to OR for repeat I&D and wound vac exchange (see procedures below). The patient was then transferred to the [facility] ([facility]) on 07/06/21 for further management due to [...] Other Topics Concern ??? Parent/sibling w/ CABG, VT or angioplasty before 65F 55M? No Social [...] Thompson MD - 07/06/2021 1:17 PM CDT [facility] Orthopedic Surgery Consultation Deann King [...] exposed bone. The patient was admitted to [facility] from 06/28/04 - 07/06/21 with sepsis and [...] admitted from 06/28 - to 07/06 at [facility] where the patient presented with acute on [...] The patient was then transferred to the [facility] for further management due to [...] So Luciano MD; Location: UR OR ??? 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 ORTHOPEDIC SURGERY ??? THORACIC SURGERY [...] Other Topics Concern ??? Parent/sibling w/ CABG, VT or angioplasty before 65F 55M? No Social [...] CNP naloxone (NARCAN) 4 MG/0.1ML nasal spray Wilder 1 spray (4 mg) into one nostril alternating nostrils once as needed for opioid reversal every 2-3 minutes until assistance arrives Juanis Mckenzie nicotine (NICODERM CQ) 14 MG/24HR [address] 1 patch onto the skin every 24 hours Patient not taking: Reported on 02/28/2021 Reymudno Sifuentes MD nicotine polacrilex (NICORETTE) 4 MG [...] daily Dashawn Campos MD Anticoagulation noted: No ENTRY ANALYST anticoagulation Physical Exam: Vitals: 07/06/21 1300 BP: [...] encounter Miscellaneous Notes Pharmacy - Antonella Zarate [facility] - 07/23/2021 3:55 PM CDT Images from the original note were not included. [facility] Parenteral ANtibiotic Review at Departure from Acute Care [facility] Antimicrobial Stewardship Program - A joint venture between [facility] and Physicians to optimize antibiotic [...] was performed on 07/04. She transferred to [facility] on 07/06 for further management [...] Recommendations/Additional Information: Please fax laboratory results to [facility] ([phone]), attn: Dr. Kobe Zarate, PharmD, BCIDP Pager: [phone] Vital Signs/Clinical Features: Vitals Report 07/23 0700 [...] hours. Recent Labs Lab Test 04/01/19 1558 01/11/20211605/31/20 1030 07/12/20 1126 07/09/21 1733 URINEPH 6.5 [...] goal(s). See goals on Care Plan in [facility] electronic health record for goal details. [...] vac, BSC, Walker, and pt belongings. Plan: [facility] at 1100 AM today 07/23/21 per [...] Equipment: IV pole/pump, and pt belongings. Plan: [facility] when a bed is available. Additional [...] goal(s). See goals on Care Plan in [facility] electronic health record for goal details. [...] - 07/19/2021 7:27 AM CDT Status Note [id number] Patient A&Ox4, able to make needs known, [...] Manage Fall Risk Recent Flowsheet Documentation Taken 07/18/2021 0400 by Corey Delgado, RN Safety Promotion/Fall Prevention: activity supervised fall prevention program maintained nonskid shoes/slippers when out of bed Taken 07/17/20212029 by Corey Delgado RN Safety Promotion/Fall Prevention: activity supervised fall prevention program maintained nonskid shoes/slippers when out of bed Intervention: Prevent Skin Injury Recent Flowsheet Documentation Taken 07/18/2021 0400 by Corey Delgado RN Body Position: position [...] Intervention: Prevent Infection Recent Flowsheet Documentation Taken 07/18/2021 0400 by Corey Delgado RN Infection Prevention: environmental [...] and Ventilation Recent Flowsheet Documentation Taken 07/18/2021 0400 by Corey Delgado RN Head of Bed (HOB) Positioning: HOB at 20-30 degrees Taken 07/18/2021 0200 by Corey Delgado RN Head of Bed (HOB) Positioning: HOB at 20-30 degrees Taken 07/18/2021 0000 by Corey Delgado RN Head of Bed (HOB) Positioning: HOB at 20-30 degrees Taken 07/17/20212029 by Corey Delgado, RN Head of Bed (HOB) Positioning: HOB [...] reach. Pharmacy-Vancomycin Dosing Service - Iker Caldwell [facility] - 07/15/2021 7:40 AM CDT Pharmacy [...] passing gas. Activity: Independent up to [facility] pivoting. Up for meals? Sitting up in [...] intermittent infusion (mg) 1,500 mg New Bag 07/12/21 2159 1,500 mg New Bag 1033 1,500 mg New Bag 07/11/21 2138 1,500 mg New Bag 1033 Nephrotoxins and other renal medications (From now, onward) Start Dose/Rate Route Frequency Ordered Stop 07/12/21 0900 piperacillin-tazobactam (ZOSYN) 4.5 g vial to attach to NS 100 mL bag Note to Pharmacy: For [facility], [facility] and [facility]: For Zosyn-naive patients, use the Zosyn [...] update with concerns Additional Info: Plan of Jarvis Holley RN - 07/12/2021 11:17 PM CDT VS: [...] verbal consent to Sintia Swain RN for [facility] staff to speak with mother So Parker [...] Info: Pharmacy-Vancomycin Dosing Service - Lurdes Sierra [facility] - 07/11/2021 10:11 AM CDT Pharmacy [...] but the predicted AUC was 459 @64%. [place] that since patient is younger with good [...] yet. Last BM: 07/06. Activity: Up to BSC with assist of one. Skin: Incision/ wound [...] Tinoco MD - 07/07/2021 9:19 AM CDT [facility] Brief Operative Note Pre-operative diagnosis: Ankle [...] a 40-year-old who was previously admitted to [facility] with sepsis and MSSA bacteremia secondary to a right lateral ankle abscess that tracked down to prior calcaneal hardware. She underwent 3 I&D's at [facility] prior to her transfer. Patient [...] taken to the PACU in stable condition. I Eliud Olivera was present for critical aspects of [...] 07/07/2021 7:00 PM UR OT WAITLIST [facility] [place] 07/08/2021 8:00 AM Carmencita iL Pt, PT [facility] [place] Nathaniel Tinoco MD Orthopaedic Surgery, PGY-4 Plan [...] Will continueto monitor. Pharmacy-Admission Medication History - Caremn Suze Sauceda, [facility] - 07/06/2021 7:22 PM CDT Admission Medication History Completed by Pharmacy See [facility] Admission Navigator for allergy information, preferred outpatient pharmacy, prior to admission medications and immunization status. Medication History Sources: ??? Pharmacy fill history via [employer] ??? Current medication list from [facility] (pt admitted 06/28-07/06) ??? 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 Deleted: coenzyme-Q, ibuprofen, multivitamin, omeprazole, ondansetron, Miralax, thiamine, vitamin B complex (old Rx, no fill history) ??? 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 Last prescribed dose of buprenorphine was 8 mg SL tid, however per addiction medicine visit notes pt was taking medication differently to make prescription last and using family member's supply at times. At [facility] she was receiving 4 mg SL every 4 hours. Per [place] WIRE TEMPERER: Buprenorphine 8 mg SL tablet filled 05/04/21, [...] Mckenzie naloxone (NARCAN) 4 MG/0.1ML nasal spray Wilder 1 spray (4 mg) into one nostril alternating nostrils once as needed for opioid reversal every 2-3 minutes until assistance arrives Juanis Mckenzie nicotine polacrilex (NICORETTE) [address] 1 each (4 mg) inside cheek every hour as needed for smoking cessation Patient not taking: Reported on 02/28/2021 Reymundo Sifuentes MD Date completed: 07/06/21 Medication history completed by: Suze Morales [facility] Plan of Care - Leydi Ward [...] LDA: L side chest PICC. Placed at [facility]. Plan: Continue with care Additional [...] Wound Care Luis Camara DPM [address] [place], [place] [address] (Wo rk) 01/21/2022 Office Visit Gastroenterology Juanis Mckenzie [address] [place] [address] Luis Fernando Miles MD [address] [facility] [address] [place], [place] [id number] documented as of this encounter Procedures Procedure [...] (ABNORMAL) CRP inflammation (07/23/2021 7:42 AM CDT) [facility] [employer] Method Time Signature CRP Inflammation 8.2 (H) [...] City/State/ZIP Code [place] [address] Care Lab [address] [facility], Room [address]309 (ABNORMAL) CBC with platelets and differential (07/21/2021 3:12 PM CDT) [facility] Method Time Signature WBC Count 4.4 4.0 [...] City/State/ZIP Code [place] [address] Care [address] [place] [address], Room [address] Asymptomatic COVID-19 Virus (Coronavirus) by [...] exposure or clinical presentation sugges ts COVID-19. ??[facility] are certified under the Clinical Laborat ory Improvement Amendments of 1988 (CLIA-88) as qualified to perform moderate and/or high complexity laboratory testing. Jaime Rae MD LAB - MICRO GENERAL ORDERABL ES Performing Organization Address City/State/ZIP Code [place] [address] Care Lab [address] [place] [address], Room [address]309 (ABNORMAL) CRP inflammation (07/19/2021 8:19 AM CDT) [facility] [employer] Method Time Signature CRP Inflammation 15.0 (H) [...] City/State/ZIP Code Phon e Number UR LABORATORY [facility] [place] [address] Care Lab [address] [facility], Room M309 (ABNORMAL) CBC with platelets (07/19/2021 8:19 AM CDT) [facility] [employer] Method Time Signature WBC Count 4.9 4.0 [...] City/State/ZIP Code [place] [address] Care [address] [place] [address], Room [address] Extra Purple Top Tube (07/18/2021 [...] - BLOOD ORDERABLES Performing Organization Address City/[facility]/ZIP Code [place] [address] Care Lab [address] [place] [address], Room [address]309 (ABNORMAL) CRP inflammation (07/18/2021 7:37 [...] City/State/ZIP Code [place] [address] Care Lab [address] [place] [address], Room [address] XR Chest 1 View (07/17/2021 [...] exposure or clinical presentation sugges ts COVID-19. ??[facility] are certified under the Clinical Laborat ory Improvement Amendments of 1988 (CLIA-88) as qualified to perform moderate and/or high complexity laboratory testing. Jaime Rae MD LAB - MICRO GENERAL ORDERABL ES Performing Organization Address City/State/ZIP Code Phon e Number UR LABORATORY [facility] [place] [address] Care Lab [address] [facility], Room M309 (ABNORMAL) CBC with platelets and differential (07/17/2021 7:36 AM CDT) [facility] gist Method Time Signature WBC Count 5.8 [...] City/State/ZIP Code Phon e Number UR LABORATORY [facility] [place] [address] Care Lab [address] [facility], Room M309 (ABNORMAL) Comprehensive metabolic panel (07/17/2021 7:36 AM CDT) [facility] Method Time Signature Sodium 139 133 [...] and gender (Paul et al., NEJ, DOI: 10.1056/QGDBzg8927475) Specimen Anatomical Collection Method / Collection Time Recei isak Time (Source) Location / Volume Laterality Blood STRUCTURE OF RIGHT Venipuncture / 07/17/2021 7:36 05/3 02/2021 8:08 HAND / Unknown Unknown AM CDT AM CDT Jensen Ulloa MD LAB - BLOOD ORDERABLES Performing Organization Address City/State/ZIP [facility] [place] [address] Care Lab [address] [facility], Room M309 (ABNORMAL) CRP inflammation (07/16/2021 [...] LAB - BLOOD ORDERABLES Performing Organization Address City/State/[facility] Code [place] [address] Care Lab [address] [facility], Room M309 Creatinine (07/16/2021 8:23 AM CDT) P athologist Signature Creatinine 0.66 0.52 - 1.04 07/16/2021 [facility] mg/dL 9:01 AM CDT GFR Estimate >90 >60 07/16/2021 [facility] mL/min/1.73 9:01 AM CDT m2 Comment: Effective February 06, 2021 eGF Rcr in adults is calculated using the 2020 CKD-EPI creatinine equation which includ es age and gender (Paul solis al., [facility], DOI: 10.1056/DYBBmg0142122) Specimen Anatomical Collection Method / Collection Time Recei isak Time (Source) Location / Volume Laterality Blood STRUCTURE OF RIGHT Venipuncture / 07/16/2021 8:23 05/3 8:31 HAND / Unknown Unknown AM CDT AM CDT Jaime Rae MD LAB - BLOOD ORDERABLES Performing Organization Address City/State/ZIP Code [place] [address] Care [address] [place] [address], Room [address] Extra Purple Top Tube (07/15/2021 [...] - BLOOD ORDERABLES Performing Organization Address City/[facility]/ZIP Code [place] [address] Care Lab [address] [place] [address], Room [address]309 Creatinine (07/15/2021 6:09 AM CDT) athologist Signature Creatinine 0.64 0.52 - 1.04 07/15/2021 [facility] mg/dL 7:06 AM CDT GFR Estimate >90 >60 07/15/2021 [facility] mL/min/1.73 7:06 AM CDT m2 Comment: Effective February 06, 2021 eGF Rcr in adults is calculated using the 2020 CKD-EPI creatinine equation which includ es age and gender (Paul et al., NEJM, DOI: 10.1056/KBRUof6677975) Specimen Anatomical Collection Method / Collection Time Recei isak Time (Source) Location / Volume Laterality Blood STRUCTURE OF LEFT Venipuncture / 07/15/2021 6:09 07/15 6:14 HAND / Unknown Unknown AM CDT AM CDT Jaime Rae MD LAB - BLOOD ORDERABLES Performing Organization Address City/State/ZIP Code [place] [address] Care Lab [address] [facility], Room M309 Vancomycin level (07/15/2021 6:09 AM CDT) athologist Signature Vancomycin 20.6 mg/L 07/15/2021 7:07 [facility] AM CDT Specimen Anatomical Collection Method / Collection Time Recei isak Time (Source) Location / Volume Laterality Blood STRUCTURE OF LEFT Venipuncture / 07/15/2021 6:09 07/15 6:14 HAND / Unknown Unknown AM CDT AM CDT Jaime Rae MD LAB - BLOOD ORDERABLES Performing Organization Address City/[facility]/ZIP Code [place] [address] Care Lab [address] [place] [address], Room [address]309 Creatinine (07/14/2021 5:30 AM CDT) athologist Signature Creatinine 0.62 0.52 - 1.04 07/14/2021 [facility] mg/dL 6:20 AM CDT GFR Estimate >90 >60 07/14/2021 [facility] mL/min/1.73 6:20 AM CDT m2 Comment: Effective February 06, 2021 eGF Rcr in adults is calculated using the 2020 CKD-EPI creatinine equation which includ es age and gender (Paul et al., [facility], DOI: 10.1056/MYHRnu5003955) Specimen Anatomical Collection Method / Collection Time Recei isak Time (Source) Location / Volume Laterality Blood STRUCTURE OF RIGHT Venipuncture / 07/14/2021 5:30 05/2 09/2021 5:52 UPPER LIMB / Unknown AM CDT AM CDT Unknown Jaime Rae MD LAB - BLOOD ORDERABLES Performing Organization Address City/State/ZIP Code [place] [address] [address] Lab [address] [place] [address], Room M309 (ABNORMAL) CBC with platelets (07/14/2021 5:30 AM CDT) Patholo gist Method Time Signature WBC Count 4.9 [...] STRUCTURE OF RIGHT Venipuncture / 07/14/2021 5:30 /09/2021 5:52 UPPER LIMB / Unknown AM CDT AM CDT Unknown Jah Thompson MD LAB - BLOOD ORDERABLES Performing Organization Address City/State/ZIP Code [place] [address] Care Lab [address] [facility], Room M309 (ABNORMAL) CRP inflammation (07/14/2021 5:30 AM CDT) Patholo gist Method Time Signature CRP Inflammation 40.0 [...] City/State/ZIP Code Phon e Number UR LABORATORY [facility] [place] [address] Care Lab [address] [facility], Room M309 XR Chest 1 View [...] platelets and differential (07/13/2021 5:40 AM CDT) [facility] Method Time Signature WBC Count 4.9 [...] City/State/ZIP Code Phon e Number UR LABORATORY [facility] [place] [phone] Care Lab [address] [facility], Room M309 (ABNORMAL) Comprehensive metabolic panel (07/13/2021 5:40 AM CDT) [facility] gist Method Time Signature Sodium 139 133 [...] and gender (Paul et al., NEJ, DOI: 10.1056/[id number]) Specimen Anatomical Collection Method / Collection Time Recei isak Time (Source) Location / Volume Laterality Blood STRUCTURE OF RIGHT Venipuncture / 07/13/2021 5:40 06/18 5:55 HAND / Unknown Unknown AM CDT AM CDT Jensen Ulloa MD LAB - BLOOD ORDERABLES Performing Organization Address City/State/ZIP Code [place] [address] Care [address] [place] [address], Room M309 Vancomycin level (07/13/2021 5:40 AM [...] City/State/ZIP Code [place] [address] Care [address] [place] [address], Room M309 Blood Culture Line, venous (07/12/2021 [...] MICRO GENERAL ORDERABL ES Performing Organization Address City/[facility]/ZIP Code Phon e Number UU IDD LABORATORY [facility] [place] [place] [address]ag[address] [facility], Room D297 Blood Culture Arm, Right [...] MICRO GENERAL ORDERABL ES Performing Organization Address City/[facility] Phon e Number UU IDD LABORATORY [facility] [place] [place] [address] [address]ag[address] [facility], Room D297 (ABNORMAL) CRP inflammation (07/12/2021 [...] - BLOOD ORDERABLES Performing Organization Address City/[facility]/ZIP Code Phon e Number UR LABORATORY [facility] [place] [phone] [address] [place] [address], Room M309 (ABNORMAL) CBC with platelets (07/12/2021 [...] 7:04 Unknown Unknown AM CDT AM CDT Jha Thompson MD LAB - BLOOD ORDERABLES Performing Organization Address City/State/ZIP Code [place] [address] Care Lab [address] [facility], Room M309 Creatinine (07/12/2021 6:57 AM CDT) P athologist Signature Creatinine 0.57 0.52 - 1.04 07/12/2021 UR LABORATORY mg/dL 7:35 AM CDT GFR Estimate >90 >60 07/12/2021 UR LABORATORY mL/min/1.73 7:35 AM CDT m2 Comment: Effective February 06, 2021 eGF Rcr in adults is calculated using the 2020 CKD-EPI creatinine equation which includ es age and gender (Paul et al., NEJ, DOI: 10.1056/[id number]) Specimen Anatomical Collection Method / Collection Time Recei isak Time (Source) Location / Volume Laterality Blood STRUCTURE OF RIGHT Venipuncture / 07/12/2021 6:57 05/2 07/2021 7:04 UPPER LIMB / Unknown AM CDT AM CDT Unknown Jaime Rae MD LAB - BLOOD ORDERABLES Performing Organization Address City/State/ZIP Code Phon e Number UR LABORATORY [facility] [place] [address] Care Lab [address] [facility], Room M309 Fungal or Yeast Culture [...] Code Phon e Number UU IDD LABORATORY [facility] [place] [place] [address] [facility], Room D297 Wound Aerobic Bacterial Culture [...] Code Phon e Number UU IDD LABORATORY [facility] [place] [place] [address] [facility], Room D297 (ABNORMAL) Anaerobic Bacterial Culture Routine (07/11/2021 6:18 PM CDT) Patholo gist Method [...] MICRO GENERAL ORDER JEFFERY Performing Organization Address City/[facility] Code Phon e Number UU IDD LABORATORY [facility] [place] [place] [address] [facility], Room D297 Extra Purple Top Tube (07/11/2021 9:09 AM CDT) P athologist Signature Hold Specimen JIC 07/11/2021 UR LABORATORY 10:19 AM CDT Specimen Anatomical Collection Method / Collection Time Recei isak Time (Source) Location / Volume Laterality Blood STRUCTURE OF RIGHT Venipuncture / 07/11/2021 9:09 05/2 06/2021 9:12 UPPER LIMB / Unknown AM CDT AM CDT Unknown Jaime Rae MD LAB - BLOOD ORDERABLES Performing Organization Address City/State/ZIP Code Phon e Number UR LABORATORY [facility] [place] [address] Care Lab [address] [facility], Room M309 Creatinine (07/11/2021 9:09 AM CDT) P athologist Signature Creatinine 0.58 0.52 - 1.04 07/11/2021 UR LABORATORY mg/dL 9:35 AM CDT GFR Estimate >90 >60 07/11/2021 UR LABORATORY mL/min/1.73 9:35 AM CDT m2 Comment: Effective February 06, 2021 eGF Rcr in adults is calculated using the 2020 CKD-EPI creatinine equation which includ es age and gender (Paul et al., NE, DOI: 10.1056/[id number]) Specimen Anatomical Collection Method / Collection Time Recei isak Time (Source) Location / Volume Laterality Blood STRUCTURE OF RIGHT Venipuncture / 07/11/2021 9:09 05/2 06/2021 9:16 UPPER LIMB / Unknown AM CDT AM CDT Unknown Jaime Rae MD LAB - BLOOD ORDERABLES Performing Organization Address City/State/ZIP Code [place] [address] Care Lab [address] [facility], Room M309 (ABNORMAL) CBC with platelets and differential (07/10/2021 7:26 AM CDT) Patholo gist Method Time Signature WBC Count 7.9 [...] City/State/ZIP Code Phon e Number UR LABORATORY [facility] [place] [address] Care Lab [address] [facility], Room M309 (ABNORMAL) CRP inflammation (07/10/2021 7:26 AM CDT) [facility] gist Method Time Signature CRP Inflammation 59.0 (H) 0.0 - 8.0 07/10/2021 UR LABORATOR Y mg/L 8:08 AM CDT Specimen Anatomical Collection Method / Collection Time Recei isak Time (Source) Location / Volume Laterality Blood STRUCTURE OF LEFT Venipuncture / 07/10/2021 7:26 07/10 7:49 HAND / Unknown Unknown AM CDT AM CDT Jensen Ulloa MD LAB - BLOOD ORDERABLES Performing Organization Address City/State/ZIP [facility] [place] [address] Care Lab [address] [place] [address], Room M309 (ABNORMAL) CRP inflammation (07/10/2021 5:25 AM CDT) [facility] Method Time Signature CRP Inflammation 60.0 (H) 0.0 - 8.0 07/10/2021 UR LABORATOR Y mg/L 6:50 AM CDT Specimen Anatomical Collection Method / Collection Time Recei isak Time (Source) Location / Volume Laterality Blood STRUCTURE OF RIGHT Venipuncture / 07/10/2021 5:25 05/05/2021 6:17 UPPER LIMB / Unknown AM CDT AM CDT Unknown Jaime aRe MD LAB - BLOOD ORDERABLES Performing Organization Address City/[facility] [place] [address] Care Lab [address] [place] [address], Room M309 (ABNORMAL) CBC with platelets (07/10/2021 5:25 AM CDT) [facility] [employer] Method Time Signature WBC Count 8.2 4.0 [...] City/State/ZIP Code [place] [phone] Care Lab [address] [facility], Room M309 (ABNORMAL) UA with Microscopic reflex to Culture (07/09/2021 5:33 PM CDT) [facility] Method Time Signature Color Urine Yellow Colorless, 07/09/2021 UR LABORATORY Straw, 7:00 PM CDT Light Yellow, Yellow Appearance Urine Clear Clear 07/09/2021 UR LABORATOR Y 7:00 PM CDT Glucose Urine Negative Negative 07/09/2021 UR LABORATORY mg/dL 7:00 PM CDT Bilirubin Urine Negative Negative 07/09/2021 UR LABORATORY 7:00 PM CDT Ketones Urine Negative Negative 07/09/2021 UR LABORATORY mg/dL 7:00 PM CDT Specific Fenton 1.018 1.003 - 07/09/2021 UR LABORATOR Y [...] City/State/ZIP Code Phon e Number UR LABORATORY [facility] [place] [address] Care Lab [address] [facility], Room M309 Blood Culture Arm, Right [...] Code Phon e Number UU IDD LABORATORY [facility] [place] [phone] Diag. Lab [address] [facility], Room D297 Blood Culture Arm, Left [...] Code Phon e Number UU IDD LABORATORY [facility] [place] [phone] Diag. Lab [address] [facility], Room D297 (ABNORMAL) CRP inflammation (07/09/2021 12:22 PM CDT) [facility] Method Time Signature CRP Inflammation 43.0 [...] City/State/ZIP Code Phon e Number UR LABORATORY [facility] [place] [address] Care Lab [address] [facility], Room M309 ALT (07/09/2021 12:22 PM [...] City/State/ZIP Code [place] [phone] Care Lab [address] [facility], Room M309 (ABNORMAL) Basic metabolic panel (07/09/2021 [...] equation which includ es age and gender (Olericulturist et al., NEJM, DOI: 10.1056/[id number]) Specimen Anatomical Collection Method Collection Time Receive d Time (Source) Location / / Volume Laterality Blood STRUCTURE OF LEFT VAD(CVC, PICC) / 07/09/2021 12:22 UPPER LIMB / Unknown PM CDT 12:30 PM CDT Unknown Jaime Rae MD LAB - BLOOD ORDERABLES Performing Organization Address City/[facility]/ZIP Code [place] [phone] Care Lab [address] [facility], Room M309 (ABNORMAL) CBC with platelets [...] City/State/ZIP Code Phon e Number UR LABORATORY [facility] [place] [phone] Care Lab [facility], Room M309 ECHO COMPLETE (07/08/2021 1:04 PM CDT) P athologist Signature LVEF 55-60% CARDIOLOGY RESULTS Anatomical Region Laterality Modality Echocardiography Specimen (Source) Anatomical Collection Method Collection Time Re ceived Time Location / / Volume Laterality 07/08/2021 12:07 PM CDT Narrative 07/08/2021 2:15 PM CDT [id number]^BUTCH^JAIME [facility],F [facility] Echocardiography Laboratory [address] [place] [address] Name: DEANN KING : 1980 Study Date: 07/08/2021 12:07 PM Age: 40 yrs Gender: Female Patient Location: [facility] [place] Reason For Study: [...] is no prior study for direct marti triplett. MMode/2D Measurements & Calculations IVSd: 0.84 cm LVIDd: 4.6 cm LVIDs: 2.5 cm LVPWd: 0.94 cm FS: 45.1 % LV mass(C)d: 134.9 grams LV mass(C)dI: 70.5 grams/m2 Ao root diam: 3.0 cm asc Aorta Diam: 3.3 cm LVOT diam: 2.1 cm LVOT area: 3.5 cm2 RWT: 0.41 Doppler Measurements & Calculations MV E max yobani: 84.4 cm/sec MV A max yoabni: 47.4 cm/sec MV E/A: 1.8 TR max yobani: 232.0 cm/sec TR max P.5 mmHg E/E' av.0 Lateral E/e': 6.3 Medial E/e': 9.6 Report approved by: Abdifatah Martinez 02:15 PM Procedure Note Matheus Jo MD - 07/08/2021 [id number]^BUTCH^JAIME [facility] Echocardiography Laboratory [address] [place] [address] Name: DEANN KING : 1980 Study Date: 07/08/2021 12:07 PM Age: 40 yrs Gender: Female Patient Location: [facility] [place] Reason For Study: [...] is no prior study for direct marti uziel. MMode/2D Measurements & Calculations IVSd: 0.84 cm [...] CBC with platelets (07/08/2021 7:14 AM CDT) [facility] gist Method Time Signature WBC Count 7.0 [...] City/State/ZIP Code [place] [address] [address] [place], [place] [id number] (ABNORMAL) Erythrocyte sedimentation rate auto (07/08/2021 7:14 AM CDT) [facility] gist Method Time Signature Erythrocyte 102 (H) 0 - 20 07/08/2021 UR LABORATORY Sedimentation mm/hr 8:02 AM CDT Rate Specimen Anatomical Collection Method / Collection Time Recei isak Time (Source) Location / Volume Laterality Blood STRUCTURE OF RIGHT Venipuncture / 07/08/2021 7:14 06/18 7:45 HAND / Unknown Unknown AM CDT AM CDT Nathaniel Tinoco MD LAB - BLOOD ORDERABLES Performing Organization Address City/[facility]/ZIP Code [place] [address] [address] [place] [address] (ABNORMAL) CRP inflammation (07/08/2021 7:14 AM CDT) [facility] gist Method Time Signature CRP Inflammation 57.0 [...] City/State/ZIP Code [place] [address] Care Lab [address] [place] [address], Room M309 US Abdomen Complete (07/07/2021 3:33 [...] MD - 07/07/2021 EXAMINATION: US ABDOMEN COMPLETE, 3:33 PM COMPARISON: None. HISTORY: Elevated LFTs, [...] findings. KIMBERLY JACOBSON MD Jaime Rae MD [facility] US ORDERABLES Blood Culture Line, venous (07/07/2021 [...] Code Phon e Number UU IDD LABORATORY [facility] [place] [address] [facility], Room D297 Blood Culture Line, venous [...] Code Phon e Number UU IDD LABORATORY [facility] [place] [address] [facility], Room D297 (ABNORMAL) Phosphorus (07/07/2021 12:35 PM CDT) athologist Signature Phosphorus 4.8 (H) 2.5 - 4.5 07/07/2021 UR LABORATORY mg/dL 2:13 PM CDT Specimen Anatomical Collection Method Collection Time Receive d Time (Source) Location / / Volume Laterality Blood VENOUS LINE / VAD(CVC, PICC) / 07/07/2021 12:35 2021 1:01 Unknown Unknown PM CDT PM CDT Ntahaniel Tinoco MD LAB - BLOOD ORDERABLES Performing Organization Address City/[facility]/ZIP Code [place] [phone] Care Lab [address] [facility], Room M309 Magnesium (07/07/2021 12:35 PM CDT) [...] City/State/ZIP Code [place] [phone] Care Lab [address] [facility], Room M309 (ABNORMAL) CBC with platelets (07/07/2021 12:35 PM CDT) [facility] Method Time Signature WBC Count 8.6 [...] 1:01 Unknown Unknown PM CDT PM CDT Nathnaiel Tinoco MD LAB - BLOOD ORDERABLES Performing Organization Address City/State/ZIP Code [place] [address] Care Lab [address] [facility], Room M309 (ABNORMAL) Comprehensive metabolic panel (07/07/2021 12:35 PM CDT) [facility] Method Time Signature Sodium 137 133 [...] and gender (Paul et al., NEJM, DOI: 10.1056/[id number]) Specimen Anatomical Collection Method Collection Time Receive d Time (Source) Location / / Volume Laterality Blood VENOUS LINE / VAD(CVC, PICC) / 07/07/2021 12:35 2021 1:01 Unknown Unknown PM CDT PM CDT Nathaniel Tinoco MD LAB - BLOOD ORDERABLES Performing Organization Address City/State/ZIP Code Phon e Number UR LABORATORY [facility] [place] [phone] Care Lab [address] [facility], Room M309 (ABNORMAL) Tissue Aerobic Bacterial Culture Routine (07/07/2021 8:43 AM CDT) [facility] Method Time Signature Culture 1+ Staphylococcus [...] Susceptibility testing requested by Dr. Fraga Pager [phone]. This specimen was received on a swab. [...] Code Phon e Number UU IDD LABORATORY [facility] [place] [phone] [facility], Room D297 Anaerobic Bacterial Culture Routine (07/07/2021 8:43 AM CDT) [facility] Method Time Signature Culture No anaerobic [...] MICRO GENERAL ORDER JEFFERY Performing Organization Address City/[facility] Phon e Number UU IDD LABORATORY [facility] [place] [address] Diag. Lab 500 [facility] Room D297 Tissue Aerobic Bacterial Culture Routine [...] Code Phon e Number UU IDD LABORATORY [facility] [place] [address] [facility], Room D297 Anaerobic Bacterial Culture Routine (07/07/2021 8:42 AM CDT) [facility] Method Time Signature Culture No anaerobic [...] MICRO GENERAL ORDER JEFFERY Performing Organization Address City/[facility] Phon e Number UU IDD LABORATORY [facility] [place] [address] [facility], Room D297 Wound Aerobic Bacterial Culture [...] Code Phon e Number UU IDD LABORATORY [facility] [place] [address] [facility], Room D297 Anaerobic Bacterial Culture Routine [...] Code Phon e Number UU IDD LABORATORY [facility] [place] [phone] Diag. Lab [address] [facility], Room D297 Asymptomatic COVID-19 Virus (Coronavirus) by PCR Nasopharyngeal (07/06/2021 6:11 PM CDT) Analysis Performed At [facility] Time Signature SARS CoV2 PCR Negative Negative [...] exposure or clinical presentation sugges ts COVID-19. ??[facility] are certified under the Clinical Laborat ory Improvement Amendments of 1988 (CLIA-88) as qualified to perform moderate and/or high complexity laboratory testing. Ernesto Martínez MD LAB - MICRO GENERAL ORDERABL ES Performing Organization Address City/State/ZIP Code [place] [phone] Care Lab [address] [facility], Room M309 Blood Culture Arm, Left [...] MICRO GENERAL ORDERABL ES Performing Organization Address City/[facility]/ZIP Code Phon e Number UU IDD LABORATORY [facility] [place] [phone] Diag. Lab [address] [facility], Room D297 (ABNORMAL) Iron and iron [...] City/State/ZIP Code [place] [phone] Care Lab [address] [facility], Room M309 (ABNORMAL) Hepatitis C RNA, Quantitative by PCR (07/06/2021 3:34 PM CDT) [facility] Method Time Signature Hepatitis C RNA [...] Code Phon e Number UU IDD LABORATORY [facility] [place] [address] [facility], Room D297 Adult Type and Screen (07/06/2021 3:34 PM CDT) [facility] Method Time Signature ABO/RH(D) B POS 07/06/2021 UR BLOOD 2:15 PM CDT BANK Antibody Negative Negative 07/06/2021 UR BLOOD Screen 2:15 PM CDT BANK SPECIMEN [id number] 07/06/2021 UR BLOOD EXPIRATION 2:15 PM CDT BANK DATE Specimen Anatomical Collection Method / Collection Time Recei isak Time (Source) Location / Volume Laterality Blood STRUCTURE OF RIGHT Venipuncture / 07/06/2021 3:34 05/2 4:06 UPPER LIMB / Unknown PM CDT PM CDT Unknown Jah Thompson MD LAB - BLOOD BANK TEST ORDER Performing Organization Address City/[facility]/ZIP [facility] Phon e Number UR BLOOD BANK [facility] [place] [phone] Components Lab [address] [facility], Room M301 (ABNORMAL) Hepatic panel (07/06/2021 [...] - BLOOD ORDERABLES Performing Organization Address City/[facility]/ZIP Code Phon e Number UR LABORATORY [facility] [place] [phone] Care Lab [address] [facility], Room M309 Blood Culture Arm, Right [...] Code Phon e Number UU IDD LABORATORY [facility] [place] [address] [facility], Room D297 Partial thromboplastin time (07/06/2021 3:34 PM CDT) athologist Signature aPTT 36 22 - 38 07/06/2021 UR LABORATORY Seconds 4:23 PM CDT Specimen Anatomical Collection Method / Collection Time Recei isak Time (Source) Location / Volume Laterality Blood STRUCTURE OF RIGHT Venipuncture / 07/06/2021 3:34 05/2 4:06 UPPER LIMB / Unknown PM CDT PM CDT Unknown Jah Thompson MD LAB - BLOOD ORDERABLES Performing Organization Address City/[facility] Code [place] [address] Care Lab [address] [facility], Room M309 (ABNORMAL) INR (07/06/2021 3:34 PM CDT) athologist Signature INR 1.39 (H) 0.85 - 1.15 07/06/2021 UR LABORATORY 4:23 PM CDT Comment: Some International Normalized R atio (INR) results performed at the [facility] Acute Care Lab for patients 6 month [...] - BLOOD ORDERABLES Performing Organization Address City/[facility]/ZIP [facility] [place] [phone] [place] [address], Room M309 (ABNORMAL) Erythrocyte sedimentation rate auto (07/06/2021 3:34 PM CDT) [facility] gist Method Time Signature Erythrocyte 97 (H) [...] - BLOOD ORDERABLES Performing Organization Address City/[facility] Code [place] [phone] [place] [address], Room M309 (ABNORMAL) CRP inflammation (07/06/2021 3:34 PM CDT) [facility] gist Method Time Signature CRP Inflammation 65.0 (H) 0.0 - 8.0 07/06/2021 UR LABORATOR Y mg/L 4:31 PM CDT Specimen Anatomical Collection Method / Collection Time Recei isak Time (Source) Location / Volume Laterality Blood STRUCTURE OF RIGHT Venipuncture / 07/06/2021 3:34 05/2 4:06 UPPER LIMB / Unknown PM CDT PM CDT Unknown Jah Thompson MD LAB - BLOOD ORDERABLES Performing Organization Address City/[facility] [place] [phone] [address] [place] [address], Room M309 (ABNORMAL) Basic metabolic panel (07/06/2021 3:34 PM CDT) [facility] gist Method Time Signature Sodium 136 133 - [...] and gender (Paul et al., NEJM, DOI: 10.1056/[id number]) Specimen Anatomical Collection Method / Collection Time Recei isak Time (Source) Location / Volume Laterality Blood STRUCTURE OF RIGHT Venipuncture / 07/06/2021 3:34 05/ 4:06 UPPER LIMB / Unknown PM CDT PM CDT Unknown Jah Thompson MD LAB - BLOOD ORDERABLES Performing Organization Address City/State/ZIP Code Phon e Number UR LABORATORY [facility] [place] [address] Care Lab [address] [facility], Room M309 (ABNORMAL) CBC with platelets (07/06/2021 3:34 PM CDT) [facility] gist Method Time Signature WBC Count 5.7 [...] City/State/ZIP Code [place] [address] Care Lab [address] [facility], Room M309 documented in this encounter [...] mg, Oral, AT BEDTIME, First dose on 07/06/21 at 2200 Given 07/06/2021 10:47 PM CDT [...] other, anxiety, itching, adjuvant pain, Starting on Tu07/17/21 at 1531 Given 07/22/2021 1:00 PM CDT [...] Intravenous, ONCE PRN, muscle spasms, Starting on Fri07/07/21 at 0909, For 1 dose, Give push [...] last modification) on Zoe 07/19/21 at 1400 Given 07/23/2021 8:07 AM CDT [...] Step 1 of nausea and vomiting ann webb. If nausea not resolved in 15 minutes, [...] or analgesic side effects. Hold while on 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 [employer] or with regular IV opioid dosing. Given [...] or analgesic side effects. Hold while on 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 or with regular IV opioid dosing. Given [...] or analgesic side effects. Hold while on 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 or with regular IV opioid dosing. Given [...] Oral, DAILY PRN, constipation, Sta rting on 07/06/21 at 1400, Indications: Constipation, Give in 8 [...] DAILY, First dose (after last reorder) on 07/08/21 at 1030, Indications: Constipation, Give in 8 [...] Yusuf: cabinet override, 1 dose, Starting on Fri07/14/21 at 2248, Until Fri07/14/21 at 2253 sodium chloride 0.9 % infusion [...] Schwartz, GENARO) 0807 (Given - Provider: Andrzej Hodge, GENARO) 162 mg, Oral, DAILY, First dose on Scott 07/08/21 at 0800, DO NOT C DANIELS. buprenorphine (SUBUTEX) sublingual tablet 8 mg 0447 (G iven - Provider: Paulino Ybarra, GENARO - Comment: wanted to take now vs 6am because she woke up for pain meds and wants to go back to sleep after)0600 (Canceled Entry - Provider: Paulino Ybarra RN)1316 (Given - Provider: Vin Sims, GENARO) 0611 (Given - Provider: Alisa Ceja, GENARO)1420 (Given - Provider: Areli Schwartz RN)2241 (Given - Provider: Yani Preciado RN) 0647 (Given - Provider: Alisa Ceja, GENARO) 1401 (Given - Provider: Andrzej Hodge, GENARO) 8 mg, Sublingual, 3 TIMES DAILY, First d ose (after last modification) on Zoe 07/19/21 at 1400, 2pm, 10 pm. 6 am Give SUBLINGUAL. Place under the tongue and leave until completely dissolved. Patient should 2147 (Given - Provider: Alisa Ceja, GENARO) not swallow or chew tablet. Patient quan uld not eat/drink until tablet is completely dissolved. ceFAZolin (ANCEF) intermittent infusion 2 g in 100 mL dextrose PRE-MIX 45 (New Bag - Provider: Paulino Ybarra, GENARO)0827 (New Bag - Provider: Vin Sims, GENARO)1504 [...] RN)2000 (Given - Provider: Alisa Ceja RN) 0830 (Given - Provider: Areli Schawrtz RN)1928 (Given - Provider: Yani Preciado, GENARO) 0807 [...] 0830 (Given - Provider: Areli Schwartz RN) 08 (Given - Provider: Andrzej Hodge, GENARO) 1 mg, Oral, DAILY, First dose on Fri07/06/21 at 1600 gabapentin (NEURONTIN) capsule 300 mg 2146 (Given - Provider : Alisa Ceja RN) 2241 (Given - Provider: Yani Preciado, GENARO) [...] Schwartz RN) 2241 (Given - Provider: Yani Preciado, GENARO) 08 [...] Sims RN)1316 (Given - Provider: Vin Sims, RN)2000 (Given - Provider: Alisa Ceja RN) 08 (Given - Provider: Areli Schwartz RN) 142 (Given - Provider: Areli Schwartz RN)1929 (Given - Provider: Yani Preciado, GENARO) 0807 (Given - Provider: Andrzej Hodge, GENARO)1401 (Given - Provider: Andrzej Hodge RN) 750 [...] (Patch in Place - Provider: Alisa Ceja, GENARO - Comment: L arm) 0602 (Patch in Place - Provider: Alisa Ceja, RN)1423 (Patch in Place - Provider: Areli Schwartz RN)2243 (Patch in Place - Provider: Yani Preciado, GENARO) 0649 (Patch in Place - Provider: Alisa Ceja, RN)1402 (Patch in Place - Provider: Andrzej [...] refused) 0809 (Not Given - Provider: Andrzej lizama, GENARO - Reason: Patient/family refused) 17 g, Oral, DAILY, First dose (after las t reorder) on Scott 07/08/21 at 1030, Indications: Constipation, Give in 8 [...] RN)2000 (Given - Provider: Alisa Ceja RN) 828 (Given - Provider: Areli Schwartz RN)1928 (Given - Provider: Yani Preciado RN) 08 (Not Given - Provider: Andrzej lizama, GENARO - Reason: Patient/family refused) 2 tablet, Oral, 2 TIMES DAILY, First dos e (after last modification) on Scott 07/08/21 at 2000, Start with 1 tablet [...] Sims, GENARO) 08 (Given - Provider: Areli Schwartz, RN) 0807 (Given - Provider: Andrzej Hodge RN) 100 mg, Oral, DAILY, First dose on Fri07/07/21 at 0800 triamcinolone (KENALOG) 0.1 % ointment 0832 (Given - P rovider: Vin Sims, GENARO)2004 (Not Given - Provider: [...] PRN, dry skin, irr itation, Starting on Tu07/17/21 at 1531, Apply to all areas ondansetron [...] Ybarra RN)1045 (Given - Provider: Vin Sims, GENARO)1503 (Canceled Entry - Provider: Vin Sims RN)1649 (Given - Provider: Vin Sims, GENARO)2351 (Given - Provider: Alisa Ceja RN) 0842 [...] leora lgesic side effects. Hold while on TIN TIE 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 AUTOMATIC or with regular IV opioid dosing. polyethylene [...] mL 10-40 mL, Intracatheter, EVERY 1 HOUR AK N, other, to lock EACH CVC - [...] documented as of this encounter Care Teams Boat Diesel Motor Mechanic Relationship Specialty Start Date End Date Juanis Mckenzie PCP - General Addiction Medicine 06/29/21 [address] [place] [address] Deann Pina APRN CONVENTION PLANNER Assigned PCP 02/25/21 [facility] [address] [place], [place] [address] documented as of this encounter
--- OUTSIDE RECORDS SUMMARY | 2021-12-05 19:39 | XMS_ITS | Encounter Summary ---
:1980 Author Organization [place] Address [address] [facility] [address] Care Team Providers Name Role Phone Clinic, [facility] Primary Care Provide r YovaniStephani APRN JUNIOR SOFTWARE DEVELOPER Unavailable Reason for Visit Reason Onset Date Comments Clinic Care Coordination - Follow-up 03/27/2020 Encounter Details Date Type Department Care Team Description 03/27/2020 Telephone [facility], [facility] Car e Coordination Clinic [facility] - Follow-up [address] [address] [place] [address] Social History Tobacco Use Types Packs/Day Years Used Date Smoking Tobacco: Every Day Cigarettes 0.3 10 Smokeless Tobacco: Never Comments: 5-8 cigarettes a day Alcohol Use Standard Drinks/Week Comments Yes 0 (1 standard drink = 0.6 oz pure alcoho l) drinking a pint of vodka daily Sex Assigned at Date Recorded Female 01/14/2020 10:57 AM HIGHBALLER COVID-19 Exposure Response Date Recorded In the last month, have you been in contact with No / Unsure 03/27/2020 9:20 AM HIGHBALLER someone who was confirmed or suspected to have Coronavirus / COVID-19? documented as of this encounter Miscellaneous Notes Telephone Encounter - Kamari Spring - 03/27/2020 11:15 AM CST Stephani is setup with Eri He on the at 4pm with Dr. Jorden Hoffman for termite inspector care. BALLER documented in this encounter Plan of Treatment Upcoming Encounters Date Type Specialty Care Team Description 12/20/2021 Office Visit Wound Care Luis Camara, CALVIN [address] [place], [place] [phone] (Wo rk) 01/21/2022 Office Visit Gastroenterology Juanis Levi 2450 [place] [address] Luis Fernando Miles MD [address] [facility] 2[address] [place], [place] [address] documented as of this encounter Visit Diagnoses Not on filedocumented in this encounter Additional Health Concerns Assessment Noted Time PHQ-9 Depression Total Score: 6 12/27/2019 9:38 AM HIGHBALLER documented as of this encounter Care Teams County Demonstrator Relationship Specialty Start Date End Date Clinic, [facility] PCP - General 01/20/18 06/28/[address] [place] [address] Stephani Pina APRN JUNIOR SOFTWARE DEVELOPER Assigned PCP 01/30/20 12/30/[address] [place] [address] 700 [place], [place] [phone] documented as of this encounter
--- NOTE | 2021-12-05 20:17 | ED.NURSE ---
Pt standing in hallway, asking to smoke and also use vending machine. Pt not allowed to smoke, US arrives as security was going to accompany to vending machines.
[2021-12-05 20:47] VITALS: BP 124/80; PULSE 88; RESP 16; O2SAT 97
[2021-12-05 21:49] VITALS: TEMP 36.8
[2021-12-05] MEDS: IBUPROFEN 200 MG TABLET 600 MG PO (21:49)
== END 2021-12-05 22:06 | disposition home or self-care (01) ==
PROVIDERS: Emergency Provider Emergency Medicine Emergency Medical Services
DX: L03.115 Cellulitis of right lower limb (principal)
CPT/HCPCS: 93971; 99284; A9270

== ENCOUNTER 2021-12-14 14:37 | Emergency (ER) | payer MEDICAID, SELFPAY ==
[2021-12-14 15:09] VITALS: BP 119/78; PULSE 67; RESP 18; TEMP 36.2; O2SAT 99
--- NOTE | 2021-12-14 16:03 | CRLHL7_ITS ---
For Patients: As a result of the Century Cures Act, medical imaging exams and procedure reports are released immediately into your electronic medical record. You may view this report before your referring provider. If you have questions, please contact your health care provider. Indication: Pain in right foot. Technique: Right foot 3 views. Comparison: None. Findings: Bones: No acute fracture. Alignment is normal. Old hardware tracts within the calcaneus. Osteopenia. 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 Moderate midfoot and mild interphalangeal and 1st metatarsophalangeal joint degenerative changes. Soft tissues: Unremarkable. Impression: No acute fracture. 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 Mild to moderate degenerative changes of the remainder of the foot, as above. Dictated by Radames Melendrez MD @ 12/14/2021 5:38:38 PM (Electronically Signed)
--- OUTSIDE RECORDS SUMMARY | 2021-12-14 16:14 | XMS_ITS | Encounter Summary ---
:1980 Author Organization [place] Address [address] [place] [address] Care Team Providers Name Role Phone Stephani Pina BREAD DISTRIBUTOR RECYCLING SPECIALIST Unavailable [phone] Juanis Levi Primary Care Provider Elsa Yeh RN Unavailable Unavailable Rogelio Treadwell MD Unavailable [phone] Luis Camara DPM Unavailable [phone] Sintia Lange PA-C Unavailable Luis Fernando Miles MD Unavailable [phone] Reason for Visit Reason Comments Leg Pain Encounter Details Date Type Department Care Team Description 11/30/[address] 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 COVID-19 Exposure Response Date Recorded In [...] any SOB Triage Assessment Row Name 11/30/21 1414 Triage Assessment (Adult) Airway WDL WDL Respiratory WDL Respiratory WDL WDL Cardiac WDL Cardiac WDL WDL documented in this encounter Plan of Treatment Upcoming Encounters Date Type Specialty Care Team Description 12/20/2021 Office Visit Wound Care Luis Camara DPM [address] [place] [employer], [place] [address] (Wo rk) 01/21/2022 PRE VISIT Gastroenterology Landon Warren, *-*WANDAIN G RECORDS*-* MD Luis Fernando [address] [place] [phone] (Wo rk) 01/21/2022 Office Visit Gastroenterology Juanis Levi [address] [place] [address] Luis Fernando Miles MD [address] [place] [phone] documented as of this encounter Visit Diagnoses Not on filedocumented in this encounter Additional Health Concerns Infection Onset Date Last Indicated Resolved Time MRSAComment: Added from external infection. 11/07/201406/18 Assessment Noted Time PHQ-9 Depression Total Score: 3 11/19/2021 11:45 AM CD T documented as of this encounter Care Teams Lighting Technician Relationship Specialty Start Date End Date Juanis Levi PCP - General Addiction Medicine 06/29/[address] [place] [address] Stephani Pina, Assigned PCP 02/25/21 BREAD DISTRIBUTOR RECYCLING SPECIALIST [address] [place], [place] [address] Elsa Yeh, Registered Nurse Infectious Diseases 07/25/21 Rogelio Wilson Assigned Musculoskeletal 08/04/21 MD August Provider [address] [place] [phone] Luis Camara MD Podiatry 08/16/21 CALVIN Burnett [address] [place] [address] Sintia Lange, Assigned Surgical 09/08/21 PA-C Provider [address] [address] Landon Warren MD Gastroenterology 11/21/21 MD Luis Fernando 6 [facility] [address] [place] [address] documented as of this encounter
--- OUTSIDE RECORDS SUMMARY | 2021-12-14 16:14 | XMS_ITS | Encounter Summary ---
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 documented as of this encounter Plan of Treatment Upcoming Encounters Date Type Specialty Care Team Description 12/20/2021 Office Visit Wound Care Luis Camara, DPM 909 [place] [address] (Wo rk) 01/21/2022 PRE VISIT Gastroenterology Landon Warren, *-*WANDAIN G RECORDS*-* MD Luis Fernando [address] [place] [address] 2A [place], [place] 854395 (Wo rk) 01/21/2022 Office Visit Gastroenterology Juanis Levi [facility] [place] [phone] Luis Fernando Miles MD [address] [place] [address] 497875 documented as of this encounter Visit Diagnoses Not on filedocumented in this encounter Additional Health Concerns Infection Onset Date Last Indicated Resolved Time MRSAComment: Added from external infection. 11/07/201406/18 Assessment Noted Time PHQ-9 Depression Total Score: 2 12/15/2020 1:07 PM CDT documented as of this encounter Care Teams Oyster Bed Worker Relationship Specialty Start Date End Date Juanis Levi PCP - General Addiction Medicine 06/29/[address] [place] [phone] Stephani Pina, Assigned PCP 02/25/21 FABRIC AWNING REPAIRER LOCOMOTIVE INSPECTOR [address] [address] Elsa Yeh, Registered Nurse Infectious Diseases 07/25/21 RN Rogelio Treadwell Assigned Musculoskeletal 08/04/21 MD August Provider [address] [place] [address] Luis Camara MD Podiatry 08/16/21 CALVIN Burnett [address] [place] [address] [phone] documented as of this encounter
--- OUTSIDE RECORDS SUMMARY | 2021-12-14 16:14 | XMS_ITS | Encounter Summary ---
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 documented as of this encounter Plan of Treatment Upcoming Encounters Date Type Specialty Care Team Description 12/20/2021 Office Visit Wound Care Luis Camara DPM 909 [place], [place] 343375 (Wo rk) 01/21/2022 PRE VISIT Gastroenterology Landon Warren, *-*INCOMIN G RECORDS*-* MD Luis Fernando [address] [place] [address] [phone] (Wo rk) 01/21/2022 Office Visit Gastroenterology Juanis Levi 2450 [place] [address] Luis Fernando Miles MD [address] [place] [address] 270775 documented as of this encounter Visit Diagnoses Not on filedocumented in this encounter Additional Health Concerns Infection Onset Date Last Indicated Resolved Time MRSAComment: Added from external infection. 11/07/201406/18 Assessment Noted Time PHQ-9 Depression Total Score: 3 11/19/2021 11:45 AM CD T documented as of this encounter Care Teams Granite Polisher Relationship Specialty Start Date End Date Juanis Levi PCP - General Addiction Medicine 06/29/21 [address] [place] [address] Stephani Pina, Assigned PCP 02/25/21 CUSTOMER RESOLUTION SPECIALIST INTERNATIONAL RELATIONS PROFESSOR [address] [place], [place] 466784 Elsa Yeh, Registered Nurse Infectious Diseases 07/25/21 RN Rogelio Treadwell Assigned Musculoskeletal 08/04/21 MD August Provider 909 [place] [address] Luis Camara MD Podiatry 08/16/21 CALVIN Burnett 909 [place] [address] Sintia Lange, Assigned Surgical 09/08/21 PA-C Provider 909 [facility] 4TH [place] [address] Landon Warren MD Gastroenterology 11/21/21 MD Luis Fernando 6 [facility] 2A [place] [address] documented as of this encounter
--- OUTSIDE RECORDS SUMMARY | 2021-12-14 16:14 | XMS_ITS | Clinical Summary ---
:1980 Author Organization [place] Address [address] [place] [address] Care Team Providers Name Role Phone Stephani Pina FARZANA PLASTER MECHANIC Unavailable [phone] Juanis Levi Primary Care Provider Elsa Yeh RN Unavailable Unavailable Rogelio Treadwell MD Unavailable [phone] Luis Camara DPM Unavailable Sintia Lange PA-C Unavailable Luis Fernando Miles MD Unavailable [phone] Allergies No known active allergies Medications [...] times daily Opioid Dependence naloxone (NARCAN) 4 [place] 1 spray 0.2 mL 11 Discontinued MG/0.1ML [...] Added automatically from request for rohan adams [id number] Physical deconditioning 07/23/2021 Osteomyelitis of right ankle, [...] rounds with Dr Alma Leyva. Referral to deck supervisor placed. 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 COVID-19 Exposure Response Date Recorded In [...] Visit Wound Care Luis Camara, DPM 909 [place] [address] (Wo rk) 01/21/2022 PRE VISIT Gastroenterology Landon Warren, *-*INCOMIN G RECORDS*-* MD Luis Fernando [address] [place] [address] (Wo rk) 01/21/2022 Office Visit Gastroenterology Juanis Levi 2450 [place] [address] Luis Fernando Miles MD [address] [place] [address] Health Maintenance Due Date Last Done Comments [...] to Confirmation, Urine (11/19/2021 1:39 PM CDT) [facility] Method Time Signature Ethyl Negative Cutoff 500 11/20/[address] [facility] Glucuronide ng/mL 9:46 PM CDT Urine [...] tandem mass spectr ometry (LC-MS/MS). Performed By: [facility] [address] [place] [address] Divorce Mediator: Willian Swain MD, PhD Specimen Anatomical Collection Method Collection Time Receive d Time (Source) Location / / Volume Laterality Urine URINE SPECIMEN Non-blood 11/19/2021 1:39 PM 022 2:03 OBTAINED BY CLEAN Collection / CDT PM CDT CATCH PROCEDURE / Unknown Unknown Juanis Camryn Levi LAB - URINE ORDERABLES Performing Organization Address City/State/ZIP Code Phon e Number [employer] [place], [place] [phone] [address] [facility] [address] from Last 3 Months Additional Health Concerns Infection Onset Date Last Indicated MRSAComment: Added from external infection. 11/07/2014 07/07/2021 Insurance Payer Benefit Plan / Subscriber ID Effective Dates Phone Addre ss Type Group [facility] [id number] 2021-Present [phone] [address] [place] [address] Steph[facility] [address] (Home) [place], [place] [phone] [address] (Work) Advance Directives For more information, please contact: [phone] Latest Code Status on File Code Status [...] with patient/legal dec ision maker Care Teams Six Pack Packer Relationship Specialty Start Date End Date Juanis Levi PCP - General Addiction Medicine 06/29/21 [facility] [place] [phone] Stephani Pina, Assigned PCP 02/25/21 HAT RENOVATOR PLASTER MECHANIC [address] [facility] 700 [place] [address] Elsa Yeh, Registered Nurse Infectious Diseases 07/25/21 RN Rogelio Treadwell Assigned Musculoskeletal 08/04/21 MD August Provider [address] [place] [address]8485 Luis Camara MD Podiatry 08/16/21 CALVIN Burnett [address] [place] [address] Sintia Lange, Assigned Surgical 09/08/21 PA-C Provider [address] [place] [address] 4TH [address]LO[address] [place], [place] [address] Landon Warren MD Gastroenterology 11/21/21 MD Luis Fernando 6 [facility] 2A [place] [address]
--- OUTSIDE RECORDS SUMMARY | 2021-12-14 16:14 | XMS_ITS | Encounter Summary ---
:1980 Author Organization [facility] Address [address] [place] [address] Care Team Providers Name Role Phone Stephani Pina APRN EQUIPMENT MECHANIC SPECIALIST Unavailable [phone] Juanis Levi Primary Care Provider Elsa Yeh RN Unavailable Unavailable Rogelio Treadwell MD Unavailable [phone] Luis Camara DPM Unavailable [phone] Sintia Lange PA-C Unavailable Luis Fernando Miles MD Unavailable [phone] Reason for Visit Reason Onset Date Comments Call Back 12/03/2021 Questions Encounter Details Date Type Department Care Team Description 12/03/2021 Telephone [facility] Wound Luis Camara all Back (Questions ) Clinic Meghan Burnett DPM 909 [facility] 909 [facility] 4th [place], [place] [address] Social History Tobacco Use Types Packs/Day Years Used Date Smoking Tobacco: Every Day Cigarettes 0.3 10 Smokeless Tobacco: Never Comments: 5-8 cigarettes a day (hasn't s moked since in transitional care 07/23/21) Alcohol Use Standard Drinks/Week Comments Not Currently 0 (1 standard drink = 0.6 oz pure alcoho l) sober since 05/08 Sex Assigned at Date Recorded Female 01/14/2020 10:57 AM BOWLING BALL PATCHER COVID-19 Exposure Response Date Recorded In the last 10 days, have you been in Unable to assess 12:39 PM CDT contact with someone who was confirmed or suspected to have Coronavirus/COVID-19? documented as of this encounter Miscellaneous Notes Telephone Encounter - Loan Melgar - 12/03/2021 12:40 PM CDT [facility] Call Center Phone Message May a detailed message be left on voicemail: yes Reason for Call: Other: Per pt would like to speak with RN. Per pt has a few questions. please and thank you! Action Taken: Message routed to: [facility] ([facility]): Wound Travel Screening: Not Applicable documented in this encounter Plan of Treatment Upcoming Encounters Date Type Specialty Care Team Description 12/20/2021 Office Visit Wound Care Luis Camara, CALVIN 909 [place], [place] 337725 (Reinaldo rk) 01/21/2022 PRE VISIT Gastroenterology Landon Warren, *-*WANDAIN G RECORDS*-* MD Luis Fernando [address] [place] [address] 809375 (Wo rk) 01/21/2022 Office Visit Gastroenterology Juanis Levi 2450 [place] [address] Luis Fernando Miles MD [address] [place] [address] 072325 documented as of this encounter Visit Diagnoses Not on filedocumented in this encounter Additional Health Concerns Infection Onset Date Last Indicated Resolved Time MRSAComment: Added from external infection. 11/07/201406/18 Assessment Noted Time PHQ-9 Depression Total Score: 3 11/19/2021 11:45 AM CD T documented as of this encounter Care Teams Store Promoter Relationship Specialty Start Date End Date Juanis Levi PCP - General Addiction Medicine 06/29/21 2450 [place] [phone] Stephani Pina, Assigned PCP 02/25/21 FRAME WIRER EQUIPMENT MECHANIC SPECIALIST [address] [place] [address] Elsa Yeh, Registered Nurse Infectious Diseases 07/25/21 RN Rogelio Treadwell Assigned Musculoskeletal 08/04/21 MD August Provider [address] [place] [address] Luis Camara MD Podiatry 08/16/21 CALVIN Burnett 909 [place], [place] [phone] Sintia Lange, Assigned Surgical 09/08/21 PA-C Provider 909 [facility] 4TH [place]LOOR [place], [place] [address] Landon Warren MD Gastroenterology 11/21/21 MD Luis Fernando [address] [place] [address] 2A [place] [address] documented as of this encounter
--- OUTSIDE RECORDS SUMMARY | 2021-12-14 16:14 | XMS_ITS | Encounter Summary ---
:1980 Author Organization [place] Address [address] [place] [address] Care Team Providers Name Role Phone Stephani Pina BICYCLE SUBASSEMBLER ELECTRIC METER TECHNICIAN Unavailable [phone] Juanis Levi Primary Care Provider Elsa Yeh RN Unavailable Unavailable Rogelio Treadwell MD Unavailable [phone] Luis Camara DPM Unavailable [phone] Sintia Lange PA-C Unavailable Encounter Details [...] Date Recorded Female 01/14/2020 10:57 AM HIGH LIFT MULE OPERATOR COVID-19 Exposure Response Date Recorded In the last 10 days, have you been in contact Unable to asse ss 11/19/2021 12:39 PM CDT with someone who was confirmed or suspected to have Coronavirus/COVID-19? documented as of this encounter Plan of Treatment Upcoming Encounters Date Type Specialty Care Team Description 12/20/2021 Office Visit Wound Care Luis Camara DPM 909 [place], [place] [phone] (Wo rk) 01/21/2022 PRE VISIT Gastroenterology Landon Warren, *-*INCOMIN G RECORDS*-* MD Luis Fernando [address] [place] [address] (Wo rk) 01/21/2022 Office Visit Gastroenterology Juanis Levi 2450 [place] [phone] Luis Fernando Miles MD [address] [place] [address] [phone] documented as of this encounter Visit Diagnoses Not on filedocumented in this encounter Additional Health Concerns Infection Onset Date Last Indicated Resolved Time MRSAComment: Added from external infection. 11/07/201406/18 Assessment Noted Time PHQ-9 Depression Total Score: 3 11/19/2021 11:45 AM CD T documented as of this encounter Care Teams Corporate Pilot Relationship Specialty Start Date End Date Juanis Levi PCP - General Addiction Medicine 06/29/21 2450 [place] [phone] Stephani Pina, Assigned PCP 02/25/21 BICYCLE SUBASSEMBLER ELECTRIC METER TECHNICIAN [address] [place], [place] [address] Elsa Yeh, Registered Nurse Infectious Diseases 07/25/21 RN Rogelio Treadwell Assigned Musculoskeletal 08/04/21 MD August Provider 909 [place], [place] [address]465 Luis Camara MD Podiatry 08/16/21 CALVIN Burnett 909 [place] [address] Sintia Lange, Assigned Surgical 09/08/21 PA-C Provider [address] [address] documented as of this encounter
--- OUTSIDE RECORDS SUMMARY | 2021-12-14 16:14 | XMS_ITS | Encounter Summary ---
:1980 Author Organization [place] Address [address] [place] [address] Care Team Providers Name Role Phone Stephani Pina COCOA MILL OPERATOR DELICATESSEN CLERK Unavailable [phone] Juanis Levi Primary Care Provider Elsa Yeh RN Unavailable Unavailable Rogelio Treadwell MD Unavailable [phone] Luis Camara DPM Unavailable [phone] Reason for Visit Reason Comments Orders DME ORDER Encounter Details Date Type Department Care Team Description 08/30/2021 Documentation Only [facility] Camryn Christina (DME ORDER) Plastic and MD Lexie Reconstructive Surgery [address] [place] [address] 195 909 [place], [place] 4th Floor [address] [place], [place] [phone] [address] (Work) [phone] Social History Tobacco Use Types Packs/Day Years Used Date Smoking Tobacco: Former Cigarettes 0.3 10 Smokeless Tobacco: Never Comments: 5-8 cigarettes a day (hasn't s moked since in transitional care 07/23/21) Alcohol Use Standard Drinks/Week Comments Not Currently 0 (1 standard drink = 0.6 oz pure alcoho l) sober since 05/08 Sex Assigned at Date Recorded Female 01/14/2020 10:57 AM AGENT LICENSING CLERK COVID-19 Exposure Response Date Recorded In the last 10 days, have you been in contact with No / Unsu re 08/28/2021 9:08 AM CDT someone who was confirmed or suspected to have Coronavirus/COVID-19? documented as of this encounter Plan of Treatment Upcoming Encounters Date Type Specialty Care Team Description 12/20/2021 Office Visit Wound Care Hoa Luis Lex, DPM 909 [place] [address] (Wo rk) 01/21/2022 PRE VISIT Gastroenterology Landon Warren, *-*WANDAIN G RECORDS*-* MD Luis Fernando 516 [facility] 2A [place] [address] (Wo rk) 01/21/2022 Office Visit Gastroenterology Juanis Levi 2450 [place] [address] Luis Fernando Miles MD 6 [facility] 2A [place], [place] 268705 documented as of this encounter Visit Diagnoses Diagnosis Other complications of procedures, not e lsewhere classified, subsequent encounter - Primary documented in this encounter Additional Health Concerns Infection Onset Date Last Indicated Resolved Time MRSAComment: Added from external infection. 11/07/201406/18 Assessment Noted Time PHQ-9 Depression Total Score: 2 12/15/2020 1:07 PM CDT documented as of this encounter Care Teams Paper Cup Handle Machine Operator Relationship Specialty Start Date End Date Juanis Levi PCP - General Addiction Medicine 06/29/21 2450 [place] [address] Stephani Pina, Assigned PCP 02/25/21 COCOA MILL OPERATOR DELICATESSEN CLERK [address] [place], [place] [address] Elsa Yeh, Registered Nurse Infectious Diseases 07/25/21 RN Rogelio Treadwell Assigned Musculoskeletal 08/04/21 MD August Provider 909 [place] [address] Luis Camara MD Podiatry 08/16/21 CALVIN Burnett 909 [place] [address] documented as of this encounter
--- OUTSIDE RECORDS SUMMARY | 2021-12-14 16:14 | XMS_ITS | Encounter Summary ---
:1980 Author Organization [place] Address [address] [place] [address] Care Team Providers Name Role Phone Stephani Pina PLASMA CUTTING MACHINE OPERATOR KOSHER SEALER Unavailable [phone] Juanis Levi Primary Care Provider Elsa Yeh RN Unavailable Unavailable Rogelio Treadwell MD Unavailable [phone] Luis Camara DPM Unavailable [phone] Camryn Christina MD Unavailable Sintia Lange PA-C Unavailable Luis Fernando Miles MD Unavailable [phone] Reason for Visit Reason Onset Date Comments Call Back 08/27/2021 Encounter Details Date Type Department Care Team Description 08/27/2021 Telephone [facility] Plastic and Camryn Christina Call Back Reconstructive Surgery Clinic [address] 195 9 [place] [address] Floor [place] [phone] Social History Tobacco Use Types Packs/Day Years Used Date Smoking Tobacco: Former Cigarettes 0.3 10 Smokeless Tobacco: Never Comments: 5-8 cigarettes a day (hasn't s moked since in transitional care 6/6/22) Alcohol Use Standard Drinks/Week Comments Not Currently 0 (1 standard drink = 0.6 oz pure alcoho l) sober since 05/08 Sex Assigned at Date Recorded Female 01/14/2020 10:57 AM WIND OPERATIONS MANAGER COVID-19 Exposure Response Date Recorded In [...] Mon-Fri with questions or concerns through a G[employer]et message via your doctor's name (most efficient) or, call [phone]. For urgent medical issues that cannot wait, call the clinic at [phone] Mon- Fri 8:-4:30. If you need help over the weekend you can call the hospital to speak with the on-call resident. Thatnumber is [phone]. Telephone Encounter - Aristeotrev Joseph - 08/27/2021 3:53 PM CDT [facility] Call Center Phone Message May a [...] Wound Care Luis Camara DPM 909 [place], [place] 743415 (Reinaldo molina) 01/21/2022 PRE VISIT Gastroenterology Landon Warren, *-*INCOMIN G RECORDS*-* MD Luis Fernando [address] [place] [address] (Reinaldo molina) 01/21/2022 Office Visit Gastroenterology Juanis Levi 2450 [place] [phone] Luis Fernando Miles MD [address] [place] [address] documented as of this encounter Visit Diagnoses Not on filedocumented in this encounter Additional Health Concerns Infection Onset Date Last Indicated Resolved Time MRSAComment: Added from external infection. 11/07/2014 05/2 02/2021 Assessment Noted Time PHQ-9 Depression Total Score: 2 12/15/2020 1:07 PM CDT documented as of this encounter Care Teams Accounts Receivable Analyst Relationship Specialty Start Date End Date Juanis Levi PCP - General Addiction Medicine 06/29/21 2450 [facility] [place] [phone] Stephani Pina, Assigned PCP 02/25/21 PLASMA CUTTING MACHINE OPERATOR KOSHER SEALER [address] [place] [address] Elsa Yeh, Registered Nurse Infectious Diseases 07/25/21 RN Rogelio Treadwell Assigned Musculoskeletal 08/04/21 MD August Provider 909 [place] [address] Luis Camara MD Podiatry 08/16/21 CALVIN Burnett 909 [place], [place] [phone] Camryn Christina Assigned Surgical 09/01/21 09/07/21 MD Lexie Provider 420 [facility] 195 [place], [place] [address] Sintia Lange, Assigned Surgical 09/08/21 PA-C Provider 909 [facility] 4TH FLOOR [place], [place] [address] Landon Warren MD Gastroenterology 11/21/21 MD Luis Fernando 516 [facility] 2A [place], [place] [address]60[address] documented as of this encounter
--- OUTSIDE RECORDS SUMMARY | 2021-12-14 16:14 | XMS_ITS | Encounter Summary ---
:1980 Author Organization [facility] Address [address] [place] [address] Care Team Providers Name Role Phone Stephani Pina WARRANT CLERK MARBLE POLISHER Unavailable [phone] Juanis Levi Primary Care Provider Elsa Yeh RN Unavailable Unavailable Rogelio Treadwell MD Unavailable [phone] Luis Camara DPM Unavailable [phone] Sintia Lange PA-C Unavailable Encounter Details [...] Date Recorded Female 01/14/2020 10:57 AM APPLICATION MANAGER COVID-19 Exposure Response Date Recorded In the last 10 days, have you been in contact Unable to asse ss 10/18/2021 4:13 PM CDT with someone who was confirmed or suspected to have Coronavirus/COVID-19? documented as of this encounter Plan of Treatment Upcoming Encounters Date Type Specialty Care Team Description 12/20/2021 Office Visit Wound Care Luis Camara DPM 909 [place], [place] 6[address]295 (Wo rk) 01/21/2022 PRE VISIT Gastroenterology Landon Warren, *-*INCOMIN G RECORDS*-* MD Luis Fernando [address] [place] [address] (Wo rk) 01/21/2022 Office Visit Gastroenterology Juanis Levi 2450 [place] [phone] Luis Fernando Miles MD [address] [place] [address]79755 documented as of this encounter Visit Diagnoses Not on filedocumented in this encounter Additional Health Concerns Infection Onset Date Last Indicated Resolved Time MRSAComment: Added from external infection. 11/07/201406/18 Assessment Noted Time PHQ-9 Depression Total Score: 8 10/18/2021 3:15 PM CDT documented as of this encounter Care Teams Jordan Man Relationship Specialty Start Date End Date Juanis Levi PCP - General Addiction Medicine 06/29/21 2450 [place] [phone] Stephani Pina, Assigned PCP 02/25/21 WARRANT CLERK MARBLE POLISHER [address] [place], [place] [address] Elsa Yeh, Registered Nurse Infectious Diseases 07/25/21 RN Rogelio Treadwell Assigned Musculoskeletal 08/04/21 MD August Provider 909 [place], [place] 9[address] Luis Camara MD Podiatry 08/16/21 CALVIN Burnett 909 [place] [address] Sintia Lange, Assigned Surgical 09/08/21 PA-C Provider [address] [address] documented as of this encounter
--- OUTSIDE RECORDS SUMMARY | 2021-12-14 16:14 | XMS_ITS | Encounter Summary ---
:1980 Author Organization [facility] Address [address] [place] [address] Care Team Providers Name Role Phone Stephani Pina OCEAN FREIGHT MANAGER HIDE CURER Unavailable [phone] Juanis Levi Primary Care Provider Elsa Yeh RN Unavailable Unavailable Rogelio Treadwell MD Unavailable [phone] Luis Camara DPM Unavailable [phone] Sintia Lange PA-C Unavailable Reason for Visit Reason Onset Date Comments Appointment 11/15/2021 Encounter Details Date Type Department Care Team Description 11/15/[address] 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 documented in this encounter Plan of Treatment Upcoming Encounters Date Type Specialty Care Team Description 12/20/2021 Office Visit Wound Care Luis Camara, CALVIN [address] [place] [address] (Wo rk) 01/21/2022 PRE VISIT Gastroenterology Landon Warren, *-*HEATHER G RECORDS*-* MD Luis Fernando [address] [place] [address] (Wo rk) 01/21/2022 Office Visit Gastroenterology Juanis Levi [address] [place] [phone] Luis Fernando Miles MD [address] [place] [address] [phone] documented as of this encounter Visit Diagnoses Not on filedocumented in this encounter Additional Health Concerns Infection Onset Date Last Indicated Resolved Time MRSAComment: Added from external infection. 11/07/201406/18 Assessment Noted Time PHQ-9 Depression Total Score: 8 10/18/2021 3:15 PM CDT documented as of this encounter Care Teams Mathematics Academic Chair Relationship Specialty Start Date End Date Juanis Levi PCP - General Addiction Medicine 06/29/21 [address] [place] [address] Stephani Pina, Assigned PCP 02/25/21 OCEAN FREIGHT MANAGER HIDE CURER [address] [place] [address] Elsa Yeh, Registered Nurse Infectious Diseases 07/25/21 RN Rogelio Treadwell Assigned Musculoskeletal 08/04/21 MD August Provider [address] [place] [address] Luis Camara MD Podiatry 08/16/21 CALVIN Burnett [address] [place] [address] Sintia Lange, Assigned Surgical 09/08/21 PA-C Provider [address] [place] [address] documented as of this encounter
--- OUTSIDE RECORDS SUMMARY | 2021-12-14 16:14 | XMS_ITS | Encounter Summary ---
:1980 Author Organization [facility] Address [address] [place] [address] Care Team Providers Name Role Phone Stephani Pina GLOBE TESTER SHRIMP HEADER Unavailable [phone] Juanis Levi Primary Care Provider Elsa Yeh RN Unavailable Unavailable Rogelio Treadwell MD Unavailable [phone] Luis Camara DPM Unavailable [phone] Encounter Details Date Type Department Care Team Description 08/29/2021 Telephone [facility] Brittnee Scott, GENARO [address] [place], [place] [phone] Social History Tobacco Use [...] Date Recorded Female 01/14/2020 10:57 AM ASPHALT SCREED OPERATOR COVID-19 Exposure Response Date Recorded In [...] Care agency was not listed on AVS. Wrapper Stemmer Hand called Vijaya Styles VM to patient that home care agency was [facility] and contact info for home care agency. Wrapper Stemmer Hand also left personal office phone number, in case of follow up questions. Wrapper Stemmer Hand did not receive any follow up calls. 08/27: Per report from [facility], ANGELIKA received a call from patient re: home care on 08/27. Wrapper Stemmer Hand left Vm with home care agency to verify if patient has been seen by home care. 08/29: Received call return call from [facility]. Per Violeta at [facility] care agency visiting nurse and manager content have made multiple attempts to see patient. Patient has refused to make appointment for visits despite attempts. Reached out to mother to assist in scheduling as well, but this was also unsuccessful. Brittnee Scott Patient Student Financial Aid Manager Acute Rehabilitation Unit/ Transitional Care Unit. documented in this encounter Plan of Treatment Upcoming Encounters Date Type Specialty Care Team Description 12/20/2021 Office Visit Wound Care Luis Camara, CALVIN [address] [place], [place] [phone] (Wo rk) 01/21/2022 PRE VISIT Gastroenterology Landon Warren, *-*WANDAIN G RECORDS*-* MD Luis Fernando [address] [place] [address] [phone] (Wo rk) 01/21/2022 Office Visit Gastroenterology Juanis Levi [address] [place] [phone] Luis Fernando Miles MD [address] [place] [address] [phone] documented as of this encounter Visit Diagnoses Not on filedocumented in this encounter Additional Health Concerns Infection Onset Date Last Indicated Resolved Time MRSAComment: Added from external infection. 11/07/201406/18 Assessment Noted Time PHQ-9 Depression Total Score: 2 12/15/2020 1:07 PM CDT documented as of this encounter Care Teams Computer Education Teacher Relationship Specialty Start Date End Date Juanis Levi PCP - General Addiction Medicine 06/29/21 [facility] [place] [phone] Stephani Pina, Assigned PCP 02/25/21 GLOBE TESTER SHRIMP HEADER [address] [address] Elsa Yeh, Registered Nurse Infectious Diseases 07/25/21 RN Rogelio Treadwell Assigned Musculoskeletal 08/04/21 MD August Provider [address] [place] [address] Luis Camara MD Podiatry 08/16/21 CALVIN Burnett [address] [place] [address] documented as of this encounter
--- OUTSIDE RECORDS SUMMARY | 2021-12-14 16:14 | XMS_ITS | Encounter Summary ---
:1980 Author Organization [place] Address [address] [place] [address] Care Team Providers Name Role Phone Stephani Pina ARCHITECTURAL DRAFTING INSTRUCTOR UTILIZATION MANAGEMENT UM NURSE Unavailable [phone] Juanis Levi Primary Care Provider Elsa Yeh RN Unavailable Unavailable Rogelio Treadwell MD Unavailable [phone] Luis Camara DPM Unavailable [phone] Camryn Christina MD Unavailable Sintia Lange PA-C Unavailable Luis Fernando Miles MD Unavailable [phone] Reason for Visit Reason Onset Date Comments Erroneous encounter-disregard 08/27/2021 Encounter Details Date Type Department Care Team Description 08/27/2021 Telephone [facility] Unknown Erroneous Dermatology Clinic encounter -disregard [address] 3rd Floor [place] [phone] Social History Tobacco Use Types Packs/Day Years Used Date Smoking Tobacco: Former Cigarettes 0.3 10 Smokeless Tobacco: Never Comments: 5-8 cigarettes a day (hasn't s moked since in transitional care 07/23/21) Alcohol Use Standard Drinks/Week Comments Not Currently 0 (1 standard drink = 0.6 oz pure alcoho l) sober since 05/08 Sex Assigned at Date Recorded Female 01/14/2020 10:57 AM PULMONARY DISEASE SPECIALIST COVID-19 Exposure Response Date Recorded In [...] Visit Wound Care Luis Camara, [place] [address] [place], [place] 0[address]115 (Wo rk) 01/21/2022 PRE VISIT Gastroenterology Landon Warren, *-*WANDAIN G RECORDS*-* MD Luis Fernando [address] [place] [address] 716255 (Wo rk) 01/21/2022 Office Visit Gastroenterology Juanis Lvei [address] [place] [phone] Luis Fernando Miles MD [address] [place] [address] documented as of this encounter Visit Diagnoses Not on filedocumented in this encounter Additional Health Concerns Infection Onset Date Last Indicated Resolved Time MRSAComment: Added from external infection. 11/07/2014 05/02/2021 Assessment Noted Time PHQ-9 Depression Total Score: 2 12/15/2020 1:07 PM CDT documented as of this encounter Care Teams Outboard Motorboat Rigger Relationship Specialty Start Date End Date Juanis Levi PCP - General Addiction Medicine 06/29/[address] [place] [phone] Stephani Pina, Assigned PCP 02/25/21 ARCHITECTURAL DRAFTING INSTRUCTOR UTILIZATION MANAGEMENT UM NURSE [address] [place] [address] Elsa Yeh, Registered Nurse Infectious Diseases 07/25/21 Rogelio Wilson Assigned Musculoskeletal 08/04/21 MD August Provider [address] [place] [address] Luis Camara MD Podiatry 08/16/21 CALV[place] Burnett [address] [place] [address] Camryn Christina Assigned Surgical 09/01/21 09/07/21 MD Lexie Provider [address] [facility] [address] [place], [place] 178785 Sintia Lange, Assigned Surgical 09/08/21 PA-C Provider 909 [facility] 4TH [place] [address] Landon Warren MD Gastroenterology 11/21/21 MD Luis Fernando [address] [facility] [address] [place] [address] documented as of this encounter
--- OUTSIDE RECORDS SUMMARY | 2021-12-14 16:14 | XMS_ITS | Encounter Summary ---
:1980 Author Organization [facility] Address [address] [place] [address] Care Team Providers Name Role Phone Stephani Pina WOOD FURNITURE ASSEMBLER BOOSTER PUMP OPERATOR Unavailable [phone] Juanis Levi Primary Care Provider Elsa Yeh RN Unavailable Unavailable Rogelio Treadwell MD Unavailable [phone] Luis Camara DPM Unavailable [phone] Sintia Lange PA-C Unavailable Luis Fernando Miles MD Unavailable [phone] Encounter Details Date Type Department Care [...] [address] [place] [address] (Wo rk) 01/21/2022 PRE VISIT Gastroenterology Landon Warren, *-*INCOMIN G RECORDS*-* MD Luis Fernando [address] [place] [address] (Wo rk) 01/21/2022 Office Visit Gastroenterology Juanis Levi [address] [place] [address] Luis Fernando Miles MD [address] [place] [address] [phone] documented as of this encounter Visit Diagnoses Not on filedocumented in this encounter Additional Health Concerns Infection Onset Date Last Indicated Resolved Time MRSAComment: Added from external infection. 11/07/201406/18 Assessment Noted Time PHQ-9 Depression Total Score: 3 11/19/2021 11:45 AM CD T documented as of this encounter Care Teams Quality Assurance Group Leader Relationship Specialty Start Date End Date Juanis Levi PCP - General Addiction Medicine 06/29/21 [address] [place] [address] Stephani Pina, Assigned PCP 02/25/21 WOOD FURNITURE ASSEMBLER BOOSTER PUMP OPERATOR [address] [place], [place] 239444 Elsa Yeh, Registered Nurse Infectious Diseases 07/25/21 RN Rogelio Treadwell Assigned Musculoskeletal 08/04/21 MD August Provider [address] [place] [address] Luis Camara MD Podiatry 08/16/21 Lex DPM [address] [place] [address] Sintia Lange, Assigned Surgical 09/08/21 PA-C Provider 909 [facility] 4[address] [place] [address] Landon Warren MD Gastroenterology 11/21/21 MD Luis Fernando 6 [facility] 2A [place] [address] documented as of this encounter
--- OUTSIDE RECORDS SUMMARY | 2021-12-14 16:14 | XMS_ITS | Encounter Summary ---
:1980 Author Organization [facility] Address [address] [place] [address] Care Team Providers Name Role Phone Stephani Pina SENIOR POWER SCHEDULER INTERNET MARKETING STRATEGIST Unavailable [phone] Juanis Levi Primary Care Provider Elsa Yeh RN Unavailable Unavailable Rogelio Treadwell MD Unavailable [phone] Luis Camara DPM Unavailable [phone] Reason for Visit Reason Comments TESSY Styles, is being seen today fo r a 1 week post-op DOS 08/15 Encounter Details Date Type Department Care Team Description 08/22/2021 Office Visit [facility] Camryn Christina surgical Plastic and MD Lexie wound, subsequent Reconstructive Surgery [address] en counter ([facility] [address] Dx) [address] 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 COVID-19 Exposure Response Date Recorded In [...] Visit Wound Care Luis Camara DPM 9[address] [place] [address] (Wo rk) 01/21/2022 PRE VISIT Gastroenterology Landon Warren, *-*WANDAIN G RECORDS*-* MD Luis Fernando [address] [place] [address] [phone] (Wo rk) 01/21/2022 Office Visit Gastroenterology Juanis Levi [address] [place] [phone] Luis Fernando Miles MD [address] [place] [address] documented as of this encounter Visit Diagnoses Diagnosis Non-healing surgical wound, subsequent e ncounter - Primary documented in this encounter Additional Health Concerns Infection Onset Date Last Indicated Resolved Time MRSAComment: Added from external infection. 11/07/201406/18 Assessment Noted Time PHQ-9 Depression Total Score: 2 12/15/2020 1:07 PM CDT documented as of this encounter Care Teams Metal Fence Erector Relationship Specialty Start Date End Date Juanis Levi PCP - General Addiction Medicine 06/29/[address] [place] [phone] Stephani Pina, Assigned PCP 02/25/21 SENIOR POWER SCHEDULER INTERNET MARKETING STRATEGIST [address] [place], [place] [address] Elsa Yeh, Registered Nurse Infectious Diseases 07/25/21 RN Rogelio Treadwell Assigned Musculoskeletal 08/04/21 MD August Provider [address] [place] [address] Luis Camara MD Podiatry 08/16/21 CALVIN Burnett [address] [place], [place] [phone] documented as of this encounter
--- OUTSIDE RECORDS SUMMARY | 2021-12-14 16:14 | XMS_ITS | Encounter Summary ---
:1980 Author Organization [facility] Address [address] [place] [address] Care Team Providers Name Role Phone Stephani Pina SUPERVISOR PARACHUTE MANUFACTURING TEST AUTOMATION ARCHITECT Unavailable [phone] Juanis Levi Primary Care Provider Elsa Yeh RN Unavailable Unavailable Rogelio Treadwell MD Unavailable [phone] Luis Camara DPM Unavailable [phone] Sintia Lange PA-C Unavailable Luis Fernando Miles MD Unavailable [phone] Encounter Details Date Type Department Care [...] at Date Recorded Female 01/14/2020 10:57 AM BAGEL MAKER COVID-19 Exposure Response Date Recorded In the last 10 days, have you been in Unable to assess 12:39 PM CDT contact with someone who was confirmed or suspected to have Coronavirus/COVID-19? documented as of this encounter Plan of Treatment Upcoming Encounters Date Type Specialty Care Team Description 12/20/2021 Office Visit Wound Care uLis Camara DPM [address] [place] [address] (Wo rk) 01/21/2022 PRE VISIT Gastroenterology Landon Warren, *-*INCOMIN G RECORDS*-* MD Luis Fernando [address] [place] [phone] (Wo rk) 01/21/2022 Office Visit Gastroenterology Juanis Levi [address] [place] [address] Luis Fernando Miles MD [address] [place] [address] 377045 documented as of this encounter Visit Diagnoses Not on filedocumented in this encounter Additional Health Concerns Infection Onset Date Last Indicated Resolved Time MRSAComment: Added from external infection. 11/07/201406/18 Assessment Noted Time PHQ-9 Depression Total Score: 3 11/19/2021 11:45 AM CD T documented as of this encounter Care Teams Cabin Cleaning Supervisor Relationship Specialty Start Date End Date Juanis Levi PCP - General Addiction Medicine 06/29/21 [address] [place] [address] Stephani Pina, Assigned PCP 02/25/21 SUPERVISOR PARACHUTE MANUFACTURING TEST AUTOMATION ARCHITECT [address] [place], [place] 08[address] Elsa Yeh, Registered Nurse Infectious Diseases 07/25/21 RN Rogelio Treadwell Assigned Musculoskeletal 08/04/21 MD August Provider [address]09 [place] [address] Luis Camara MD Podiatry 08/16/21 [place] Burnett [address] [place] [address] Sintia Lange, Assigned Surgical 09/08/21 PA-C Provider 909 [facility] 4TH [place] [address] Landon Warren MD Gastroenterology 11/21/21 MD Luis Fernando 6 [facility] 2A [place] [address] documented as of this encounter
--- OUTSIDE RECORDS SUMMARY | 2021-12-14 16:14 | XMS_ITS | Encounter Summary ---
:1980 Author Organization [facility] Address [address] [place] [address] Care Team Providers Name Role Phone Stephani Pina APPLICATION DBA APPAREL CUTTER Unavailable [phone] Juanis Levi Primary Care Provider Elsa Yeh RN Unavailable Unavailable Rogelio Treadwell MD Unavailable [phone] Luis Camara DPM Unavailable [phone] Encounter Details Date Type Department Care Team [...] Date Recorded Female 01/14/2020 10:57 AM COPY WRITER COVID-19 Exposure Response Date Recorded In the last 10 days, have you been in contact with No / Unsu re 08/22/2021 9:42 AM CDT someone who was confirmed or suspected to have Coronavirus/COVID-19? documented as of this encounter Plan of Treatment Upcoming Encounters Date Type Specialty Care Team Description 12/20/2021 Office Visit Wound Care Luis Camara, DPM [address] [place] [address] (Wo rk) 01/21/2022 PRE VISIT Gastroenterology Landon Warren, *-*WANDAIN G RECORDS*-* MD Luis Fernando [address] [place] [address] 2A [place], [place] 153985 (Wo rk) 01/21/2022 Office Visit Gastroenterology Juanis Levi [facility] [place] [phone] Luis Fernando Miles MD [address] [place] [address] 343265 documented as of this encounter Visit Diagnoses Not on filedocumented in this encounter Additional Health Concerns Infection Onset Date Last Indicated Resolved Time MRSAComment: Added from external infection. 11/07/201406/18 Assessment Noted Time PHQ-9 Depression Total Score: 2 12/15/2020 1:07 PM CDT documented as of this encounter Care Teams Laundry Manager Relationship Specialty Start Date End Date Juanis Levi PCP - General Addiction Medicine 06/29/[address] [place] [phone] Stephani Pina, Assigned PCP 02/25/21 APPLICATION DBA APPAREL CUTTER [address] [address] Elsa Yeh, Registered Nurse Infectious Diseases 07/25/21 RN Rogelio Treadwell Assigned Musculoskeletal 08/04/21 MD August Provider [address] [place] [address] Luis Camara MD Podiatry 08/16/21 CALV[place] Burnett [address] [place] [address] 394035 documented as of this encounter
--- OUTSIDE RECORDS SUMMARY | 2021-12-14 16:14 | XMS_ITS | Encounter Summary ---
:1980 Author Organization [facility] Address [address] [place] [address] Care Team Providers Name Role Phone Stephani Pina ASSISTANT FEDERAL PUBLIC DEFENDER RETAIL ANALYST Unavailable [phone] Juanis Levi Primary Care Provider Elsa Yeh RN Unavailable Unavailable Rogelio Treadwell MD Unavailable [phone] Luis Camara DPM Unavailable [phone] Reason for Visit Reason Comments Surgical Followup 2 week follow up -- DOS 08/15 Encounter Details Date Type Department Care Team Description 08/28/2021 Office Visit [facility] Sintia Lange, S/P fl ap graft Plastic and PA-C (Primary Dx) Reconstructive Surgery 909 [facility] 4TH FLOOR 9[address] [place], [place] 4th [facility] [address] [place], [place] [phone] [address] (Work) [phone] Social History Tobacco Use Types Packs/Day Years Used Date Smoking Tobacco: Former Cigarettes 0.3 10 Smokeless Tobacco: Never Comments: 5-8 cigarettes a day (hasn't s moked since in transitional care 07/23/21) Alcohol Use Standard Drinks/Week Comments Not Currently 0 (1 standard drink = 0.6 oz pure alcoho l) sober since 05/08 Sex Assigned at Date Recorded Female 01/14/2020 10:57 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 COVID-19 Exposure Response Date Recorded In the [...] Visit Wound Care Luis Camara, CALVIN [address] [place] [address] (Wo rk) 01/21/2022 PRE VISIT Gastroenterology Landon Warren, *-*WANDAIN G RECORDS*-* MD Luis Fernando [address] [place] [address] (Wo rk) 01/21/2022 Office Visit Gastroenterology Juanis Levi [address] [place] [phone] Luis Fernando Miles MD [address] [place] [address] documented as of this encounter Visit Diagnoses Diagnosis S/P flap graft - Primary Other postprocedural status documented in this encounter Additional Health Concerns Infection Onset Date Last Indicated Resolved Time MRSAComment: Added from external infection. 11/07/2014 05/02/2021 Assessment Noted Time PHQ-9 Depression Total Score: 2 12/15/2020 1:07 PM CDT documented as of this encounter Care Teams Station Baggage Porter Relationship Specialty Start Date End Date Juanis Levi PCP - General Addiction Medicine 06/29/[address] [place] [phone] Stephani Pina, Assigned PCP 02/25/21 ASSISTANT FEDERAL PUBLIC DEFENDER RETAIL ANALYST [address] [place] [address] Elsa Yeh, Registered Nurse Infectious Diseases 07/25/21 RN Rogelio Treadwell Assigned Musculoskeletal 08/04/21 MD August Provider 909 [place] [address] Luis Camara MD Podiatry 08/16/21 [place] Burnett [address] [place] [address] documented as of this encounter
--- OUTSIDE RECORDS SUMMARY | 2021-12-14 16:14 | XMS_ITS | Encounter Summary ---
:1980 Author Organization [facility] [place] Address [address] [place] [address] Care Team Providers Name Role Phone Stephani Pina OPERATIONS DIRECTOR QUILL FIXER Unavailable [phone] Juanis Levi Primary Care Provider Elsa Yeh RN Unavailable Unavailable Rogelio Treadwell MD Unavailable [phone] Luis Camara DPM Unavailable [phone] Encounter Details Date Type Department Care Team [...] at Date Recorded Female 01/14/2020 10:57 AM SHELL COREMAKER COVID-19 Exposure Response Date Recorded In the last 10 days, have you been in contact with No / Unsu re 08/23/2021 10:57 AM CDT someone who was confirmed or suspected to have Coronavirus/COVID-19? documented as of this encounter Plan of Treatment Upcoming Encounters Date Type Specialty Care Team Description 12/20/2021 Office Visit Wound Care Luis Camara, DPM 909 [place] [address] (Wo rk) 01/21/2022 PRE VISIT Gastroenterology Landon Warren, *-*WANDAIN G RECORDS*-* MD Luis Fernando [address] [place] [address] 2A [place], [place] 429165 (Wo rk) 01/21/2022 Office Visit Gastroenterology Juanis Levi [facility] [place] [phone] Luis Fernando Miles MD [address] [place] [address] [phone] documented as of this encounter Visit Diagnoses Not on filedocumented in this encounter Additional Health Concerns Infection Onset Date Last Indicated Resolved Time MRSAComment: Added from external infection. 11/07/201406/18 Assessment Noted Time PHQ-9 Depression Total Score: 2 12/15/2020 1:07 PM CDT documented as of this encounter Care Teams Model And Mold Maker Relationship Specialty Start Date End Date Juanis Levi PCP - General Addiction Medicine 06/29/[address] [place] [phone] Stephani Pina, Assigned PCP 02/25/21 OPERATIONS DIRECTOR QUILL FIXER [address] [address] Elsa Yeh, Registered Nurse Infectious Diseases 07/25/21 RN Rogelio Treadwell Assigned Musculoskeletal 08/04/21 MD August Provider [address] [place] [address] Luis Camara MD Podiatry 08/16/21 CALVIN Burnett [address] [place] [address] [phone] documented as of this encounter
--- OUTSIDE RECORDS SUMMARY | 2021-12-14 16:15 | XMS_ITS | Encounter Summary ---
:1980 Author Organization [facility] Address [address] [place] [address] Care Team Providers Name Role Phone Stephani Pina WORK STUDY STUDENT BUSINESS BANKING OFFICER Unavailable [phone] Juanis Levi Primary Care Provider Elsa Yeh RN Unavailable Unavailable Reason for Referral Diagnostic Imaging XR (Routine) - Pending Review Specialty Diagnoses / Procedures Referred By Contact Refer red To Contact Diagnoses Ankle pain Rogelio Treadwell MD Procedures XR Ankle Right G/E 3 Views 9 [place], [place] [address] Referral ID Status Reason Start Date Expiration Date Visits V isits Requested Authorized [id number] Pending 07/31/2021 07/31/2022 1 1 Review Encounter Details Date Type Department Care Team Description 07/31/2021 Orders Only [facility] Rogelio Treadwell pa in (Primary Orthopedic Clinic MD August Dx) [address] [place], [place] 4th Floor [address] [place], [place] [phone] (Wo rk) [address] [phone] Social History Tobacco Use Types Packs/Day Years Used Date Smoking Tobacco: Every Day Cigarettes 0.3 10 Smokeless Tobacco: Never Comments: 5-8 cigarettes a day Alcohol Use Standard Drinks/Week Comments Not Currently 0 (1 standard drink = 0.6 oz pure alcoho l) sober since 08/2020 Sex Assigned at Date Recorded Female 01/14/2020 10:57 AM STRATEGIC ANALYST documented as of this encounter Plan of Treatment Upcoming Encounters Date Type Specialty Care Team Description 12/20/2021 Office Visit Wound Care Luis Camara DPM [address] [place], [place] [phone] (Wo rk) 01/21/2022 PRE VISIT Gastroenterology Landon Warren, *-*INCOMIN G RECORDS*-* MD Luis Fernando [address] [place] [address] (Wo rk) 01/21/2022 Office Visit Gastroenterology Juanis Levi [address] [place] [phone] Luis Fernando Miles MD [address] [place] [address] documented as of this encounter Results [...] documented as of this encounter Care Teams Regional Telecommunications Specialist Relationship Specialty Start Date End Date Juanis Levi PCP - General Addiction Medicine 06/29/21 [facility] [place] [phone] Stephani Pina APRN BUSINESS BANKING OFFICER Assigned PCP 02/25/[address] [place] [address] Elsa Yeh, RN Registered Nurse Infectious Diseases 07/25/21 documented as of this encounter
--- OUTSIDE RECORDS SUMMARY | 2021-12-14 16:15 | XMS_ITS | Encounter Summary ---
:1980 Author Organization [facility] Address [address] [place] [address] Care Team Providers Name Role Phone Stephani Pina FARZANA RECREATION COORDINATOR Unavailable [phone] Juanis Levi Primary Care Provider Elsa Yeh RN Unavailable Unavailable Rogelio Treadwell MD Unavailable [phone] Encounter Details Date Type Department Care Team Description 08/10/2021 Telephone [facility] Plastic and Camryn Christina, Reconstructive Surgery [facility] [place] [phone] [place] [address] [phone] Social History Tobacco Use Types Packs/Day Years Used Date Smoking Tobacco: Every Day Cigarettes 0.3 10 Smokeless Tobacco: Never Comments: 5-8 cigarettes a day Alcohol Use Standard Drinks/Week Comments Not Currently 0 (1 standard drink = 0.6 oz pure alcoho l) sober since 08/2020 Sex Assigned at Date Recorded Female 01/14/2020 10:57 AM TIMBER FRAMER COVID-19 Exposure Response Date Recorded In the [...] Regarding: RE: Pre-Op and Current Admission at [facility] I did call them about pre-op and COVID. Could you please call and give them any info they need aboutlogistics of when and where to be? It is [phone] Lesly ----- Message ----- From: Yessenia Marquez Sent: 08/09/2021 5:02 PM CDT To: Lesly Pina RN Subject: RE: Pre-Op and Current Admission at [facility] This is the TCU that you called! Do I need to call? Yessenia ----- Message ----- From: Lesly Pina RN Sent: 08/09/2021 4:13 PM CDT To: Camryn Christina MD, Gucci Moses, # Subject: RE: Pre-Op and Current Admission at [facility] I spoke with the staff at [...] Subject: RE: Pre-Op and Current Admission at [facility] Adding our Lesly MONROYAlma Casas ----- Message ----- From: Gucci Moses Sent: 08/09/2021 11:23 AM CDT To: Camryn Christina MD, Yessenia Marquez Subject: Pre-Op and Current Admission at [facility] Dr. Christina, I am doing chart review for next week and noticed this patient is currently admitted at the [facility] transitional care unit (which I assume is a floor within the hospital) since 07/23/21. I asked the nursing staff here at the [facility] how to coordinate her care and they [...] Luis Camara, [place] [address] [place] [address] (Wo jeses) 01/21/2022 PRE VISIT Gastroenterology Landon Warren, *-*WANDAIN G RECORDS*-* MD Luis Fernando [address] [place] [phone] (Reinaldo molina) 01/21/2022 Office Visit Gastroenterology Juanis Levi [address] [place] [phone] Luis Fernando Miles MD [address] [place] [phone] documented as of this encounter Visit Diagnoses Not on filedocumented in this encounter Additional Health Concerns Infection Onset Date Last Indicated Resolved Time MRSAComment: Added from external infection. 11/07/201406/18 Assessment Noted Time PHQ-9 Depression Total Score: 2 12/15/2020 1:07 PM CDT documented as of this encounter Care Teams Retail Worker Relationship Specialty Start Date End Date Juanis Levi PCP - General Addiction Medicine 06/29/21 [address] [place] [phone] Stephani Pina, Assigned PCP 02/25/21 TITLE MANAGER RECREATION COORDINATOR [address] [facility] [address] [place] [address] Elsa Yeh, Registered Nurse Infectious Diseases 07/25/21 RN Rogelio Treadwell Assigned Musculoskeletal 08/04/21 MD August Provider [address] [place] [address] documented as of this encounter
--- OUTSIDE RECORDS SUMMARY | 2021-12-14 16:15 | XMS_ITS | Encounter Summary ---
:1980 Author Organization [facility] Address [address] [place] [address] Care Team Providers Name Role Phone Stephani Pina FARZANA CENTRAL STERILE TECHNICIAN Unavailable Juanis Levi Primary Care Provider Elsa Yeh RN Unavailable Unavailable Reason for Visit Diagnostic Imaging XR (Routine) - Pending Review Specialty Diagnoses / Procedures Referred By Contact Refer red To Contact Diagnoses Ankle pain Rogelio Treadwell MD Procedures XR Ankle Right G/E [address] [place] [address] 5 Referral ID Status Reason Start Date Expiration Date Visits V isits Requested Authorized [id number] Pending 07/31/2021 07/31/2022 1 1 Review Encounter Details Date Type Department Care Team Description 07/31/2021 Ancillary Procedure [facility] Rogelio Treadwell nkle pain Orthopedic Xray MD August [address] [place], [place] 4th Floor [address] [place], [place] [phone] (Wo rk) [address] [phone] Social History Tobacco Use Types Packs/Day Years Used Date Smoking Tobacco: Every Day Cigarettes 0.3 10 Smokeless Tobacco: Never Comments: 5-8 cigarettes a day Alcohol Use Standard Drinks/Week Comments Not Currently 0 (1 standard drink = 0.6 oz pure alcoho l) sober since 08/2020 Sex Assigned at Date Recorded Female 01/14/2020 10:57 AM PUBLIC ADDRESS SYSTEM OPERATOR COVID-19 Exposure Response Date Recorded In the last 10 days, have you been in contact with No / Unsu re 07/31/2021 1:25 PM CDT someone who was confirmed or suspected to have Coronavirus/COVID-19? documented as of this encounter Plan of Treatment Upcoming Encounters Date Type Specialty Care Team Description 12/20/2021 Office Visit Wound Care Luis Camara, [place] [address] [place], [place] [phone] (Wo rk) 01/21/2022 PRE VISIT Gastroenterology Landon Warren, *-*HEATHER Barriga RECORDS*-* MD Luis Fernando [address] [place] [address] (Wo rk) 01/21/2022 Office Visit Gastroenterology Juanis Levi [address] [place] [phone] Luis Fernando Miles MD [address] [place] [address] [phone] documented as of this encounter Procedures Procedure [...] documented as of this encounter Care Teams Crayon Sawyer Relationship Specialty Start Date End Date Juanis Levi PCP - General Addiction Medicine 06/29/21 [facility] [place] [phone] Setphani Pina APRN CENTRAL STERILE TECHNICIAN Assigned PCP 02/25/[address] [place] [address] Elsa Yeh, RN Registered Nurse Infectious Diseases 07/25/21 documented as of this encounter
--- OUTSIDE RECORDS SUMMARY | 2021-12-14 16:15 | XMS_ITS | Encounter Summary ---
:1980 Author Organization [facility] Address [address] [place] [address] Care Team Providers Name Role Phone Stephani Pina FARZANA CHEMIST ORGANIC Unavailable [phone] Juanis Levi Primary Care Provider Elsa Yeh RN Unavailable Unavailable Rogelio Treadwell MD Unavailable [phone] Reason for Visit Auth/Cert Specialty Diagnoses / Procedures Referred By Contact Refer red To Contact Surgery Diagnoses Non-healing surgical wound, subsequent encounter Non-healing surgical wound, subsequent encounter [T81.89XD] [facility] Main Or Procedures HC SPLIT GRFT,HEAD,FAC,HAND,FEET <100SQCM Right ankle split skin graft from right.left thigh 909 [facility] 5th [place] [address] Phone: Fax: Referral ID Status Reason Start Date Expiration Date Visits Requ ested Visits Authorized [id number] 1 1 Encounter Details Date Type Department Care Team Description 08/15/2021 Surgery [facility] Main Camryn Christina t ankle split skin OR Keith Owen MD graft from right thigh [address] [place] [address] [facility] 5th Floor [address] [place] [address] [phone] (Wo rk) Surgery Details Date/Time Status Location [...] on DOS. PT CURRENTLY RESID ES AT [facility]: PLEASE CALL [phone] WITH ANY INSTRUCTIONS AND T LIZET CHANGES FOR 08/15 SURGERY. THEY SET UP TRANSPORT ETC. 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 For Medical Questions, Please Call: ? [phone], Friday - Friday, 8 a.m. - 4:30 p.m. ? After hours and on weekends, call Hospital Paging at [phone] and ask for the Plastic Surgeon education program manager. [facility] Home Care Following Anesthesia For 24 hours after surgery: Get plenty of rest. A responsible adult must stay with you for at least 24 hours after you [facility]. Do not drive or use [...] doctor is: Dr. Betty Christina, Plastic Surgery: [phone] Or dial [phone] and ask for the resident education program manager for: Plastics For emergency care, call the: [facility] Emergency Department: [phone] (TTY for hearing impaired: [phone]) documented in this encounter Medications at Time [...] CDT Report given to GENARO Rooney at [facility]. Camryn Christina MD - 08/15/2021 1:55 [...] JENSHAMAR/[id number] Name: STEPHANI REDDY MRN: [id number] Account: [id number] : 1980 Procedure Date: 08/15/2021 Document: [id number] Brief Op Note - Christiano Santacruz MD - 08/15/2021 3:24 PM CDT [facility] Surgery [facility] Brief Operative Note Pre-operative diagnosis: Non-healing surgical [...] Office Visit Wound Care Luis Camara, [place] [address] [place], [place] [phone] (Wo rk) 01/21/2022 PRE VISIT Gastroenterology Landon Warren, *-*WANDAIN G RECORDS*-* MD Luis Fernando [address] [phone] (Wo rk) 01/21/2022 Office Visit Gastroenterology Juanis Levi [address] [place] [address] Luis Fernando Miles MD [address] [place] [address] documented as of this encounter Procedures Procedure Name Priority Date/Time Associated Diagnosis Comme nts SURGICAL PROCUREMENT, 08/15/2021 2:16 PM CDT Non-heali ng surgical GRAFT, SKIN, wound, subsequent SPLIT-THICKNESS, encounter EXTREMITY Special Needs Wound VAC ordered and approv ed. Please make sure patient brings wound vac and all supplies with on DOS. [facility] PLEASE CALL [phone] WITH ANY I NSTRUCTIONS AND TIME CHANGES FOR 08/15 SURGERY. THEY SET UP TRANSPORT ETC. [facility] Admission Notes since beginning of July; Dr. [...] as of this encounter Care Teams Medical Case Worker Relationship Specialty Start Date End Date Juanis Levi PCP - General Addiction Medicine 06/29/21 [address] [place] [phone] Stephani Pina, Assigned PCP 02/25/21 HYDROMETALLURGICAL ENGINEER CHEMIST ORGANIC [address] [place], [place] [address] Elsa Yeh, Registered Nurse Infectious Diseases 07/25/21 RN Rogelio Treadwell Assigned Musculoskeletal 08/04/21 MD August Provider [address] [place], [place] [address] documented as of this encounter
--- OUTSIDE RECORDS SUMMARY | 2021-12-14 16:15 | XMS_ITS | Encounter Summary ---
:1980 Author Organization [place] Address [facility] [place] [address] Care Team Providers Name Role Phone Stephani Pina ARCHITECT NAVAL HUMAN RESOURCES MANAGER Unavailable [phone] Juanis Mckenzie Primary Care Provider Elsa Yeh RN Unavailable Unavailable Rogelio Treadwell MD Unavailable [phone] Luis Camara DPM Unavailable [phone] Reason for Referral Home Health Therapies & Aides (Routine: Next available opening) Specialty Diagnoses / Procedures Referred By Contact Refer red To Contact [facility] [address] [place] [address] [phone] Referral ID Status Reason Start Date Expiration Date Visits Requ ested Visits Authorized onsultation (Routine: Next available opening) - Pending Review Specialty Diagnoses / Procedures Referred By Contact Refer red To Contact Dermatology Diagnoses Steroid-induced acne Eros Recinos MD [address] [place] [address] [phone] Referral ID Status Reason Start Date Expiration Date Visits V isits Requested Authorized [id number] Pending 08/22/2021 08/22/2022 1 1 Review Reason for Visit Auth/Cert Specialty Diagnoses / Procedures Referred By Contact Refer red To Contact [facility] [address] [address] Phone: Referral ID Status Reason Start Date Expiration Date Visits Requ ested Visits Authorized [id number] 1 1 Encounter Details Date Type Department Care Team Description 07/23/2021 - [facility] Bethanie Dowd MD [address] [facility] [address] [place] [address] Osteomyelitis of right ankle, unspecifie d type (H) (Primary Dx); 08/22/2021 Encounter Transitional Care La Nena Babb MD [address] [place] [address] Alcohol use disorder, severe, dependence (H); Unit [facility]iel Anxiety; [facility] Steroid-induc ed acne; Street Non-healing surgical wound, subsequent encounter; [place], [place] Chronic hepa titis C without hepatic coma (H); [address] Tooth pain; [phone] Acute pain of l eft knee; Fungal [...] at Date Recorded Female 01/14/2020 10:57 AM INKER COVID-19 Exposure Response Date Recorded In the [...] Recinos MD - 08/21/2021 10:29 AM CDT [facility] Transitional [facility] Hospitalist Discharge Summary Date of Admission: 07/23/2021 [...] depression, anxiety, and tobacco abuse. She was??admitted??to [facility] on 07/06/21 from [facility] for treatment of right ankle [...] superficial soft tissue edema.? --- Transferred to [facility] on 07/06/21 --- S/p calcaneal hardware removal??and [...] at OSH. --- Wound culture here at [facility] was positive for 1+ staph simulans on [...] ankle pain and immobility --- Controlled. --- Continue??HAND TACKER??Suboxone 8mg tid, scheduled APAP 975mg TID, Gabapentin [...] allergenic polyurethane foam dressings (Mepitac tape, Sorbiview, [id number]) over occlusive adhesive semipermeable gauze dressings; [facility] can provide more detailed recommendations [...] chronic?? Alcohol use disorder.?? --- HCV quant [id number]??at OSH. --- Continue Lactulose??20 g bid --- [...] CONSULT OCCUPATIONAL THERAPY ADULT IP CONSULT SPEECH GROCERY STORE ASSOCIATE ADULT IP CONSULT DERMATOLOGY IP CONSULT WOUND OSTOMY CONTINENCE NURSE IP CONSULT Code Status Full Code Time Spent on this Encounter I, Shamar Hill MD, personally saw the patient today and spent greater than 30 minutes discharging this patient. Shamar Hill MD [facility] [address] [address] Physical Exam Vital Signs: Temp: 97.8 ??F [...] bearing as tolerated on rt Foot Adult [facility] Follow-up and recommended labs and [...] steroid acne in 1 week Appointments on [place] and/or [facility] (with [facility] or [facility] provider or service). Call [phone] if you haven't heard regarding these appointments [...] Qty: 90 tablet, Refills: 0 Comments: JAMES: [id number] Associated Diagnoses: Opioid use disorder, severe, in [...] 3:45 PM CDT SW was told at [facility], pt was leaving. Doctor told pt okay for discharge today. Pt would not stay any longer. Pt started calling transportation but didn't know the address. SW called [employer] [facility]. They set up [employer]. [phone]. Pt asked if PT ordered leg cart. [...] Discharge Disposition: Home . Discharge Services: Home PT/OT/sap security consultant Supplies: Meds from TCU went home with pt. Pt will have to get leg cart if pt really needsit. Discharge Transportation: [employer]. [phone] JACKIE redid Bims/ 13 and PHQ 0. TUSHAR Castaneda [facility], Transitional Care Unit Social Work [facility], [address] [place] [address] (PH) [phone] Smita Stone, PT - 08/21/2021 6:06 PM CDT Physical Therapy Discharge Summary Reason for therapy discharge: Poor tolerance for therapy, all functional needs have been met at this time pending further mobilityclearance Progress towards therapy goal(s). See goals on Care Plan in [facility] electronic health record for goal [...] for meds. Pt understood this. TUSHAR Castaneda [facility], Transitional Care Unit Social Work [address] [place] [address], [address]th [place] [address] () [phone] LIOT Eros Recinos MD - 08/20/2021 10:13 [...] discharge on 08/22 Dr Lizet Ibanez MD, [facility] ( Internal medicine) Pager: [phone] Smita Stone, PT - 08/20/2021 9:17 AM [...] end on 08/21 Dr Lizet Ibanez MD, [facility] Hospitalist ( Internal medicine) Pager: [phone] LIOT Eros Recinos MD - 08/18/2021 11:05 [...] X [address] Lizet Ibanez MD, [facility] Hospital[facility] ( Internal medicine) Pager: [phone] Marycarmen Cross PT - 08/17/2021 4:10 PM [...] make sure a letter went [facility] saying pt has been hospitalized. Put on there dates and when expected return. SW sent fax and sent email. TUSHAR Castaneda [facility], Transitional Care Unit Social Work [address] [place] [address], 4th [place] [address] (PH) [phone] Eros Recinos MD - 08/17/2021 10:50 AM [...] Recinos MD - 08/16/2021 10:35 AM CDT [facility] Transitional Care Medicine Progress Note - Hospitalist Service Date of Admission: 07/23/2021 Assessment & Plan Stephani King is a 40 yo female??w/ h/o opioid use d/o, alcohol use disorder,??HCV, hypothyroidism, depression, anxiety, and tobacco abuse. She was??admitted to [facility] on 07/06/21 [facility] for treatment of right ankle osteomyelitis by [...] superficial soft tissue edema.? --- Transferred to [facility] on 07/06/21 --- S/p calcaneal hardware removal??and [...] at OSH. --- Wound culture here at [facility] was positive for 1+ staph simulans on [...] ankle pain and immobility --- Controlled. --- Continue??HAND TACKER??Suboxone 8mg tid, scheduled APAP 975mg TID, Gabapentin [...] allergenic polyurethane foam dressings (Mepitac tape, Sorbiview, [id number]) over occlusive adhesive semipermeable gauze dressings; WOC [...] chronic?? Alcohol use disorder.?? --- HCV quant [id number]??at OSH. --- Continue Lactulose 20 g bid [...] team . Shamar Hill MD Hospitalist Service [facility] Transitional [facility] Securely message with the [employer] Web Console (learn more here) Text page via [employer] Paging/Directory Interval History Patent with new onset [...] from the original note were not included. [facility] Nurse Inpatient Assessment Today's Assessment: Right lateral ankle wound 08/16/2021: Patient underwent STSG to right ankle wound with Dr Christina yesterday 08/15/2021. WOC willsign off. Please re-consult with further questions or concerns. Patient History (according to provider note(s): Per Dr Clarsisa Garcia on 07/09/2021: 40 year old female [...] control prior to re-starting VAC. Marilu Mar, TOOL DISPATCHER with Ortho will order 4% topical lidicaine [...] 20 Lisa Chandler RN, CWOCN Dept. Pager: [phone] Dept. Office Number: [phone] Eros Recinos MD - 08/15/2021 3:29 PM [...] MD, FACP Hospitalist ( Internal medicine) Pager: [phone] - 08/14/2021 2:03 PM [...] depression, anxiety, and tobacco abuse. She was??admitted??to [facility] on 07/06/21 as a direct transfer from [facility] for treatment of right ankle [...] Aparicio MS, RDN, LDN TCU RD pager: [phone] Eros Recinos MD - 08/14/2021 2:00 PM [...] until [address] Lizet Ibanez MD, [facility] ( Internal medicine) Pager: [phone] Muriel Alfaro - 08/13/2021 12:50 PM CDT Pt checked with land, who did not receive lease faxed on 08/07/21. SW re-faxed lease to fax #: [phone], per pt's request. SW encouraged pt to confirm if lease wasreceived by land again. SW assured pt that if fax did not go through, then [facility], once obtained. Pt agreed. CORBIN Guaman, [facility] DIRECTOR [facility] [employer] Java Developer Pager: [phone] Elizabeth Howell MD - 08/13/2021 9:31 AM CDT [facility] Transitional Care Medicine Progress Note - Hospitalist Service Date of Admission: 07/23/2021 Assessment & Plan Stephani King is a 40 yo female??w/ h/o opioid use d/o, alcohol use disorder,??HCV, hypothyroidism, depression, anxiety, and tobacco abuse. She was??admitted to [facility] on 07/06/21 as adirect transfer from [facility] for treatment of right ankle [...] superficial soft tissue edema.? --- Transferred to [facility] on 07/06/21 --- S/p calcaneal hardware removal??and??I&D [...] at OSH. --- Wound culture here at [facility] was positive for 1+ staph simulans on [...] ankle pain and immobility --- Controlled. --- Continue??HAND TACKER??Suboxone 8mg tid, scheduled APAP 975mg TID, Gabapentin [...] allergenic polyurethane foam dressings (Mepitac tape, Sorbiview, [id number]) over occlusive adhesive semipermeable gauze dressings; [facility] can provide more detailed recommendations [...] chronic?? Alcohol use disorder.?? --- HCV quant 660334??at OSH. --- Continue Lactulose 20 g bid [...] team . Elizabeth Howell MD Hospitalist Service [facility] Transitional [facility] Securely message with the [employer] Mobile Console (learn more here) Text page via [employer] Paging/Directory Interval History Rash has been stable. [...] Mendes MD - 08/12/2021 1:04 PM CDT [facility] Transitional Care Medicine Progress Note - Hospitalist Service Date of Admission: 07/23/2021 Assessment & Plan Stephani King is a 40 yo female??w/ h/o opioid use d/o, alcohol use disorder,??HCV, hypothyroidism, depression, anxiety, and tobacco abuse. She was??admitted to [facility] on 07/06/21 [facility] for treatment of right ankle osteomyelitis by [...] superficial soft tissue edema.? --- Transferred to [facility] on 07/06/21 --- S/p calcaneal hardware removal??and [...] at OSH. --- Wound culture here at [facility] was positive for 1+ staph simulans on [...] ankle pain and immobility --- Controlled. --- Continue??HAND TACKER??Suboxone 8mg tid, scheduled APAP 975mg TID, Gabapentin [...] allergenic polyurethane foam dressings (Mepitac tape, Sorbiview, [id number]) over occlusive adhesive semipermeable gauze dressings; WO [...] chronic?? Alcohol use disorder.?? --- HCV quant 407149??at OSH. --- Continue Lactulose 20 g bid [...] care team . Kayden Mendes MD Hospitalist [facility] Transitional Care Securely message with the [employer] Mobile Console (learn more here) Text page via [...] Mendes MD - 08/08/2021 10:45 AM CDT [facility] Transitional Care Medicine Progress Note - Hospitalist Service Date of Admission: 07/23/2021 Assessment & Plan Stephani King is a 40 yo female??w/ h/o opioid use d/o, alcohol use disorder,??HCV, hypothyroidism, depression, anxiety, and tobacco abuse. She was??admitted to [facility] on 07/06/21 [facility] for treatment of right ankle osteomyelitis by [...] superficial soft tissue edema.? --- Transferred to [facility] on 07/06/21 --- S/p calcaneal hardware removal??and [...] at OSH. --- Wound culture here at [facility] was positive for 1+ staph simulans on [...] ankle pain and immobility --- Controlled. --- Continue??HAND TACKER??Suboxone 8mg tid, scheduled APAP 975mg TID, Gabapentin [...] allergenic polyurethane foam dressings (Mepitac tape, Sorbiview, [id number]) over occlusive adhesive semipermeable gauze dressings; [facility] can provide more detailed recommendations [...] chronic?? Alcohol use disorder.?? --- HCV quant 906284??at OSH. --- Continue Lactulose 20 g bid [...] team . Kayden Mendes MD Hospitalist Service [facility] Transitional Care Securely message with the [employer] Web Console (learn more here) Text page via [employer] Paging/Directory Interval History Reports itching. Rash has [...] patch Transdermal Q24H ??? nicotine Transdermal Q8H COLELEN ??? senna-docusate 2 tablet Oral BID ??? sodium chloride (PF) 10-40 mL Intracatheter Q7 Days ??? thiamine 100 mg Oral Daily ??? triamcinolone Topical BID ??? tuberculin 5 Units Intradermal Q21 Days ??? venlafaxine 300 mg Oral Daily ??? Vitamin D3 2,000 Units Oral Daily Emily Macias RN - 08/08/2021 7:52 AM CDT Images from the original note were not included. [facility] Nurse Inpatient Assessment Today's Assessment: [...] control prior to re-starting VAC. Marilu Mar, TOOL DISPATCHER with Ortho will order 4% topical lidicaine [...] dry. Cut piece of Hydrofera blue (# [id number]) to size of wound. Moisten HFB with [...] Emily Macias RN BSN CWOCN Dept. Pager: [phone] Dept. Office Number: [phone] Breanna Newton - 08/07/2021 5:24 PM CDT SW checked in with pt. Pt didn't have the whole lease signed. Pt signed lease while SW was there. SWfaxed lease to [phone]. SW told pt to call landlord tomorrow to make sure lease was in. If not then let SW know to resend lease. TUSHAR Castaneda [facility], Transitional Care Unit Social Work [address] [place] [address], 4[address] [place] [address] () [phone] Kayden Mendes MD - 08/06/2021 10:44 AM CDT [facility] Transitional Care Brief Note Stephani King [...] Howell MD - 08/05/2021 9:16 AM CDT [facility] Transitional Care Medicine Progress Note - Hospitalist Service Date of Admission: 07/23/2021 Assessment & Plan Stephani King is a 40 yo female??w/ h/o opioid use d/o, alcohol use disorder,??HCV, hypothyroidism, depression, anxiety, and tobacco abuse. She was??admitted to [facility] on 07/06/21 [facility] for treatment of right ankle osteomyelitis by [...] superficial soft tissue edema.? --- Transferred to [facility] on 07/06/21 --- S/p calcaneal hardware removal??and [...] at OSH. --- Wound culture here at [facility] was positive for 1+ staph simulans on [...] ankle pain and immobility --- Controlled. --- Continue??HAND TACKER??Suboxone 8mg tid, scheduled APAP 975mg TID, Gabapentin [...] allergenic polyurethane foam dressings (Mepitac tape, Sorbiview, [id number]) over occlusive adhesive semipermeable gauze dressings; WOC [...] chronic?? Alcohol use disorder.?? --- HCV quant 127522??at OSH. --- Continue Lactulose 20 g bid [...] team . Elizabeth Howell MD Hospitalist Service [facility] Transitional Care Securely message with the [employer] Mobile Console (learn more here) Text page via [employer] Paging/Directory Interval History Uneventful night. No complaints. [...] send esperanza milanfreddy. TUSHAR Castaneda [facility], Transitional Care Unit Social Work [address]th [place] [address] (ph) [phone] Lisa Chandler RN - 08/02/2021 12:33 PM CDT Images from the original note were not included. [facility] WO Nurse Inpatient Assessment Today's [...] control prior to re-starting VAC. Marilu Mar, TOOL DISPATCHER with Ortho will order 4% topical lidicaine [...] dry. Cut piece of Hydrofera blue (# [id number]) to size of wound. Moisten HFB with [...] 20 Lisa Chandler RN CWOCN Dept. Pager: [phone] Dept. Office Number: [phone] Sintia Lange PA-C - 08/02/2021 11:28 AM [...] tomorrow. SW and pt called jose. His research assistant member will fax lease here. Pt will sign [...] pm. SW let pt know. TUSHAR Castaneda [facility], Transitional Care Unit Social Work [address] [place] [address], 4[address] [place] [address] () [phone] Elizabeth Howell MD - 08/01/2021 11:30 AM CDT [facility] Transitional Care Medicine Progress Note - Hospitalist Service Date of Admission: 07/23/2021 Assessment & Plan Stephani King is a 40 yo female??w/ h/o opioid use d/o, alcohol use disorder,??HCV, hypothyroidism, depression, anxiety, and tobacco abuse. She was??admitted to [facility] on 07/06/21 [facility] for further care of right ankle osteomyelitis [...] ankle pain and immobility --- Controlled. --- Continue??HAND TACKER??Suboxone 8mg tid, scheduled APAP 975mg TID, Gabapentin [...] allergenic polyurethane foam dressings (Mepitac tape, Sorbiview, [id number]) over occlusive adhesive semipermeable gauze dressings; [facility] can provide more detailed recommendations [...] chronic?? Alcohol use disorder.?? --- HCV quant 806696??at OSH. --- Continue Lactulose 20 g bid [...] team . Elizabeth Howell MD Hospitalist Service [facility] Transitional Care Securely message with the [employer] Mobile Console (learn more here) Text page via [facility] Paging/Directory Interval History Uneventful night. No complaints. [...] up in bed, driftingin/out of sleep as health underwriter was setting up IV abx and administering [...] SPIRITUAL HEALTH SERVICES SPIRITUAL ASSESSMENT Progress Note [facility] ([facility]) TCU R 410 07/31/21 REFERRAL SOURCE: Self Referral Unit Employment Coach introduced self to Pt. She declined from receiving SHS and visit with Employment Coach. PLAN: No follow up necessary. Lucas Allen MA, MPA Associate Employment Coach Pager: [phone] Leydi Meng, RONALD - 07/31/2021 9:54 AM [...] disorder,??HCV, hypothyroidism, depression, anxiety, and tobacco abuse??admitted??to [facility] [...] kg) ASSESSED NUTRITION NEEDS Estimated Energy Needs: 0050-8678 kcals/day (25 - 30 kcals/kg) Justification: Maintenance [...] Leydi Meng MS, RD, LDN Unit Pager [phone] Weekend pager: [phone] Emily Macias RN - 07/30/2021 11:04 AM CDT Images from the original note were not included. [facility] WO Nurse Inpatient Assessment Today's [...] control prior to re-starting VAC. Marilu Mar, TOOL DISPATCHER with Ortho will order 4% topical lidicaine [...] dry. Cut piece of Hydrofera blue (# [id number]) to size of wound. Moisten HFB with [...] Emily Macias RN BSN CWOCN Dept. Pager: [phone] Dept. Office Number: [phone] LIOT Smita Stone PT - 07/30/2021 9:14 AM CDT 07/30/21 0900 Appointment Canceled Appointment Canceled Patient declined Cancel Comments PT: Pt declined due to feeling really sore from previous days of therapy, requeststo resume therapy tomorrow. Signing Clinician's Name / Credentials Signing clinician's name / credentials Smita Stone DPT [facility] PT La Nena Aguilera MD - 07/28/2021 8:01 AM CDT [facility] Transitional Care Medicine Progress Note - Hospitalist Service Date of Admission: 07/23/2021 Assessment & Plan 40 year old female??with past medical history significant for opioid use disorder,??alcohol use disorder,??HCV, hypothyroidism, depression, anxiety, and tobacco abuse??admitted to [facility] on 07/06/21 from [facility] for [...] of wound vac ?>Pain control: Currently controlled. -Continue??HAND TACKER??Suboxone ??8mg tid ??; scheduled APAP 975mg TID, [...] allergenic polyurethane foam dressings (Mepitac tape, Sorbiview, [id number]) over occlusive adhesive semipermeable gauze dressings; WOC [...] Transaminitis? # Alcohol use disorder.?? HCV quant 132289??at OSH. ??AST 117---56 , ALT 44--- 42 [...] with periods of confusion early in admission. ??Whitney to be??toxic vs metabolic??2/ ?withdrawal, infection, sepsis. [...] . La Nena Babb MD Hospitalist Service [facility] Transitional Care Securely message with the [employer] Mobile Console (learn more here) Text page via [employer] Paging/Directory Clinically Significant Risk Factors Present on [...] (from the past 24 hour(s)). Van Corona, TRAINING AND DEVELOPMENT DIRECTOR - 07/27/2021 5:10 PM CDT 07/27/21 1500 General Information Onset of Illness/Injury or Date of Surgery 06/28/21 Referring Physician La Nena Babb MD Patient/Family Therapy Goal Statement (TRAINING AND DEVELOPMENT DIRECTOR) To go home Pertinent History of Current Problem Pt is 40 year old female with past medical history significant for opioid use disorder, alcohol use disorder, HCV, hypothyroidism, depression, anxiety, and tobacco abuse admitted to [facility] on 07/06/21 from [facility] for further care of R ankle osteomyelitis by Orthopedics, Plastics, and Infectious Disease. Pt diagnosed with acute encephalopathy, suspected due to infection/sepsis. Patient was transferred to TCU 07/23 for ongoing cares Iv antibiotics, wound cares. General Observations Pt referred to TRAINING AND DEVELOPMENT DIRECTOR for cognitive-linguistic evaluation by interdisciplinary team; TCU [...] memory strategy training;Progressive attention training Clinical Impression TRAINING AND DEVELOPMENT DIRECTOR Diagnosis Mild cognitive impairment Risks & Benefits [...] schedules at prior level of function. Skilled TRAINING AND DEVELOPMENT DIRECTOR services indicated to train in compensatory memory strategies and instruct in executive function tasksto increase independence in iADLs. Therapy Certification Start of Care Date 07/27/21 Certification date from 07/27/21 Certification date to 08/26/21 Total Evaluation Time Total Evaluation Time (Minutes) 33 (cognitive-linguistic evaluation.) TRAINING AND DEVELOPMENT DIRECTOR Goals Therapy Frequency (TRAINING AND DEVELOPMENT DIRECTOR Eval) 4 times/wk TRAINING AND DEVELOPMENT DIRECTOR Predicted Duration/Target Date for Goal Attainment 08/18/21 TRAINING AND DEVELOPMENT DIRECTOR Goals TRAINING AND DEVELOPMENT DIRECTOR Goal 1;TRAINING AND DEVELOPMENT DIRECTOR Goal 2 TRAINING AND DEVELOPMENT DIRECTOR: Goal 1 Patient will recall information moderate to high level complexity with 80% accuracy and minimal cues from TRAINING AND DEVELOPMENT DIRECTOR. TRAINING AND DEVELOPMENT DIRECTOR: Goal 2 Patient will complete high level executive function tasks with 90% accuracy and minimal cueing from TRAINING AND DEVELOPMENT DIRECTOR. SUMMARY OF TEST: The CLQT assesses visual [...] REPORT: TOTAL TIME: 33 Reference: Sailaja Messina, CCC-TRAINING AND DEVELOPMENT DIRECTOR, (2001) [employer] Associated attestation - Reyna Ulloa MD - 09/03/2021 10:07 AM CDT Reviewed the plan of care as written by the therapy team. I agree with the charted information in the Rehabilitation evaluation, flowsheet and plan of care Reyna Ulloa MD, A Superintendent Renting Managing Transitional Care unit 09/03/21 Emily Macias RN - 07/27/2021 8:11 AM CDT Images from the original note were not included. [facility] Nurse Inpatient Assessment Today's Assessment: [...] control prior to re-starting VAC. Marilu Mar, TOOL DISPATCHER with Ortho will order 4% topical lidicaine [...] with vac drape prior to applying sponge research assistant member to assess integrity of dressing and ensure [...] Emily Macias RN BSN [facility]N Dept. Pager: [phone] Dept. Office Number: [phone] Breanna Newton - 07/25/2021 12:52 PM CDT [...] story home with three minor children in [place], [place]. Previous Functional Status: Pt stated she was IND with ADL's and IADL's. Pt did walk with a limp. DME available: Pt stated none. Patient and family understanding of hospitalization: Appropriate and pleasant. Cultural/Language/Spiritual Considerations: Pt is a 40 y.o. female, , Guinean-speaking, and is Roman Catholic. Abuse concerns: None reported. BIMS: Pt scored 13 on BIMS indicating cognition intact. PHQ-9: Pt scored 0 on PHQ-9 indicating no depressive symptoms. PAS: confirmation number- [id number] Has there been a level II screen? No Were there any recommendations in the screen? No If yes, will the recommendations we incorporated into the Plan of Care? N/A Physical Health Reason for admission: 40 year old female??with past medical history significant for opioid use disorder,??alcohol use disorder,??HCV, hypothyroidism, depression, anxiety, and tobacco abuse??admitted to [facility] on 07/06/21 from [facility] for further care of R ankle osteomyelitis by Orthopedics, Plastics, and Infectious Disease Patient Was transferred to TCU 07/23 for ongoing cares Iv antibiotics, wound cares ?? Provider Information Primary Care Physician: Yenifer Pickens [address], [place], [place], [address] [facility] Health: Juanis Mckenzie [address] [place] [address] Marine Engine Machinist: None Mental Health: Diagnosis: Per H & P Depression and anxiety Current Support/Services: Medications, Therapist, Parenting instructions from the [facility], Sober support group, Online therapy. Previous Services:See above list. Services Needed/Recommended: Pt could not report anything more needed. Substance Use: Diagnosis: Per H &P Opioid use disorder and alcohol and tobacco use disorder. Current Support/Services: Medications,Therapist, Parenting instructions from the [facility], Sober support group, Online therapy. Previous Services: Pt has gone through treatment. Services Needed/Recommended: None at this time. Support System: Marital Status: . lives in [place]. Family support: Mom/ So Parker [phone] lives a mile away. Brother/ Colby Parker [phone] Three minor children 4,5,15 y.o. Other support available: Sober friends. Gaps in support system: Pt's dad just . Otherwise, none reported. Community Resources Current in home services: None reported. Previous services: None reported. 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 Income Source: [employer], [place]. Education:[employer], 2 years of college in [employer] and [place] ([employer] Financial Concerns: Pt tried to [...] completed the 3543 with pt. TUSHAR Castaneda [facility], Transitional Care Unit Social Work [address] [place] [address] () [phone] La Nena Babb MD - 07/25/2021 12:22 PM CDT Chart check TSH came back normal La Nena Babb MD Omayra Edward RN - 07/25/2021 8:30 AM CDT Images from the original note were not included. [facility] WO Nurse Inpatient Assessment Today's [...] control prior to re-starting VAC. Marilu Mar TOOL DISPATCHER with Ortho will order 4% topical lidicaine [...] with vac drape prior to applying sponge research assistant member to assess integrity of dressing and ensure [...] Score: 19 Omayra Edward RN Dept. Pager: [phone] Dept. Office Number: [phone] Mariam Richter OT - 07/24/2021 12:58 PM [...] OT: pt reports living in house in [place] w/ 4steps to enter but abelto stay on main level , bathroom has tub shower combo and no bench/no grabbars. low toilet, kids bedrooms are upstairs , mom lives 1mile away and currently assisting w/ kids, HAND TACKER pt did most of the cook ing/cleaning/laundry, [...] (admit to [facility] from [facility]) Referring Physician Sohail Babb Patient/Family Therapy Goal [...] plan of care Reyna Ulloa MD, A Superintendent Renting Managing Transitional Care unit 08/02/21 Smita Stone, PT - 07/24/2021 12:11 PM CDT 07/24/21 0800 Quick Adds Quick Adds Certification Type of Visit Initial PT Evaluation Road Passenger Firer Language Guinean Living Environment People in Home child(kayden), dependent (14,8,4) Current Living Arrangements house Home Accessibility no concerns Transportation Anticipated family or friend will provide Living Environment Comments PT: Pt lives in [place], [place] with 4 ILANA after that needs are managed on one level. Pt has dependent children at home and HAND TACKER was IND with household cares but reports not driving for a long time due to ankle issues. Does not own or use HAND TACKER any AD. Pt does report that ~ [...] anxiety, and tobacco abuse admittedon 07/06/21 from [facility] for further [...] fitting/training;patient/family education;postural re-education;prosthetic fitting/training;ROM (range of motion);stair training;strengthening;stretching;uzbek ball techniques;TENS;thermotherapy;transfer training;wheelchair management/propulsion training;progressive activity/exercise;risk factor [...] plan of care Reyna Ulloa MD, A Superintendent Renting Managing Transitional Care unit 08/02/21 Dilma Adams - [...] Community Involvement Community Involvement Disabled Spiritual Practice [facility] Employment Coach? No Outings Movies Hobbies/Interests Cards Other (see [...] Care Yes Treatment Plan Interested in Unit [place]? No Type of Intervention Independent with activity [...] hypothyroidism, depression, anxiety, and tobacco abuse??admitted to [facility] on 07/06/21 from [facility] for [...] Leydi Meng MS, RD, LDN Unit Pager [phone] Weekend pager: [phone] documented in this encounter H&P Notes La Nena Babb MD - 07/24/2021 8:57 AM CDT [facility] Transitional Care History and Physical - Hospitalist Service Date of Admission: 07/23/2021 Assessment & Plan 40 year old female??with past medical history significant for opioid use disorder,??alcohol use disorder,??HCV, hypothyroidism, depression, anxiety, and tobacco abuse??admitted to [facility] on 07/06/21 from [facility] for [...] epic for recommendations.. ?>Pain control: Currently controlled. -Continue??HAND TACKER??Suboxone ??8mg tid ??; scheduled APAP 975mg TID, [...] allergenic polyurethane foam dressings (Mepitac tape, Sorbiview, [id number]) over occlusive adhesive semipermeable gauze dressings; WOC [...] Transaminitis? # Alcohol use disorder.?? HCV quant 637260??at OSH. ??AST 117---56 , ALT 44--- 42 [...] with periods of confusion early in admission. ??Whitney to be??toxic vs metabolic??2/2 ?withdrawal, infection, sepsis. ??Utox positive only for cannabinoids. ??Started on Lactulose at OSH. Currently alert, oriented, nonfocal.. ?? # Hypokalemia # Hypomagnesemia?? -Replaced ?? # Hypothyroidism ??- Continue Levothyroxine 125mcg QAM. -last TSH In [facility] was 2019, repeat TSH with next [...] Anticipated discharge location: home Follow-up Appointments Adult [facility] Follow-up and recommended labs and tests Follow up with Dr Camara or Morgan with Podiatry in 1-2 weeks. Clinic phone number is [phone] ?? Follow up with Plastic Surgery in 2 weeks. ?? Follow up with infectious disease 4-6 weeks. ?? Follow-up Labs: Weekly CBC w diff, BMP, CRP. Please have labs faxed to ID clinic. ?? The patient's care was discussed with the care team La Nena Babb MD Hospitalist [facility] Transitional Care Securely message with the [employer] Mobile Console (learn more here) Text page via [employer] Paging/Directory Chief Complaint Weakness, right ankle pain, IV antibiotics administration History of Present Illness 40 year old female??with past medical history significant for opioid use disorder,??alcohol use disorder,??HCV, hypothyroidism, depression, anxiety, and tobacco abuse??admitted to [facility] on 07/06/21 from [facility] for [...] So Luciano MD; Location: [facility] OR ??? POWER DISTRIBUTION ENGINEER SURGERY ??? IRRIGATION AND DEBRIDEMENT FOOT, COMBINED [...] 4 MG/0.1ML nasal spray No No Sig: [place] 1 spray (4 mg) into one nostril [...] 12:40 PM CDTAssociated Order(s): DERMATOLOGY IP CONSULT [facility] Inpatient Teledermatology Store and Forward Consult Note [...] physician: Dr. Mckinley Vanessa MD Dermatology Resident [facility] I reviewed all available images and relevant [...] admitted to [facility] from [facility] on 07/06/21 for R ankle [...] Pt met all cognitive-linguistic goals with TCU TRAINING AND DEVELOPMENT DIRECTOR. Plan of Care - Brittnee Scott RN - 08/22/2021 2:14 PM CDT Care Coordination: Discharge Plan: Home care agency: [facility] Patient will receive care home through this agency at discharge. Incision Care: Patient will need to demonstrate dressing change prior to discharge. Please send home enough dressing supplies until next follow up with plastics in 1 week. Discharge date: Today or tomorrow pending if patient can get transport set up to clinic and then home. Brittnee Scott Patient Leach Cell Operator Acute Rehabilitation Unit/ Transitional Care Unit. Plan of Care - Maryam Rose RN - 08/22/2021 1:39 PM CDT Goal Outcome Evaluation: Alert and oriented x 4. Denies chest pain and SOB. Went for her ortho appointment and wound vac was removed. Discharge has been placed but d/t some reasons she will not be discharge today.Funnel Coater explained to her that she cannot go there as an outpatient not unless she was discharge to us and can make an appointment with the recovery clinic, pt insisted to go there. Brought by health underwriter and a trainee andnurse explained to her the same information that the health underwriter told her. Explained to pt that she couldnot have any doses of Subutex and will missed 1 dose for today and pt stated that she has stock fromhome.Funnel Coater explained the kind of medications, how she [...] accepting new clients for patients living area. [facility]: Left for return call [facility]: Was able to accept patient to care for care home. Faxed over clinicalsand discharge summary. Brittnee Scott Patient Leach Cell Operator Acute Rehabilitation Unit/ Transitional Care Unit. Plan [...] RPIV pulled following completion of ABT. When health underwriter updated pt thatABT course was completed and [...] Castellanos, REFUGIO - 08/21/2021 12:10 PM CDT Test Man Post-Acute Rehab PT: Recert Date: 08/22/2021 Discharge Plan: Home to [place], [place] in house with 4 ILANA with [...] n/v. Pt is MOD I to the [facility]. Continent for both B&B and uses BS. [...] patient Plan of Care - Brice Ni, TRAINING AND DEVELOPMENT DIRECTOR - 08/19/2021 8:53 AM CDT Test Man Post-Acute Rehab TRAINING AND DEVELOPMENT DIRECTOR: Discharge Plan: no ongoing TRAINING AND DEVELOPMENT DIRECTOR interventions Precautions: IV antibiotics Current Status: Communication: [...] Hoffman RN - 08/17/2021 9:34 AM CDT Funnel Coater had checked in on patient on 08/16, pt reported doing well and showing health underwriter her new wound vac. Pt reported no current concerns that needed addressing. Funnel Coater circled back regarding interest inCOVID vaccine of which patient said that she would like to have the vaccine here on TCU. Funnel Coater infor med Provider to discuss with patient and order if appropriate. New orders in place for vaccine. 0900 08/17/2021: health underwriter approached patient with COVID-19 Screening and Consent of which pt reported,after a lot of thinking, I don't want the vaccine. I have already had the vaccine once and I don't want another one. Funnel Coater discussed risks/benefits of vaccine; patient declined. Funnel Coater left information packet at bedside should patient be interested in the future. Plan of Care - Evelyn Ascencio RN - 08/17/2021 6:11 AM CDT Report received from evening nurse that pt constantly argued with the nurse regarding her completed PRN order of oxycodone. At the beginning of the hotel night auditor, pt called health underwriter and asked about her oxycodone prescription. Funnel Coater explained to her that the oxycodone order [...] two bottles from her bag and left. Funnel Coater asked her if any security was there when she gave the meds to the staff. She said no. Funnel Coater called pharmacy but pharmacy responded that they did not take any meds from the patient. Message sent to florist manager and DON. Pt alert and oriented. [...] 08/16/2021 7:54 PM CDT Goal Outcome Evaluation: [id number]: Pt was alert and oriented x 4. [...] when ever she could not get Oxycodone health underwriter offered pudding, ice cream and bucket of [...] both bowel and bladder- uses bedside commode. [facility] 08/15. Denies pain, SOB, chest [...] resulted. NPO to begin at 0500 08/15/21. Funnel Coater informed patient. Right foot dressing changed after shower. Orientation: A/O x4 Bowel: Continent using BSC; LBM 08/13/21 Bladder: Continent Pain: Tooth ache Ambulation/Transfers: A1 walker Diet/ Liquids/ Pills: Regular, thin. Whole. Tubes/ Lines/ Drains: R forearm PIV Skin: Right foot Plan of Care - Marlena Castellanos PTA - 08/14/2021 4:03 PM CDT Test Man Post-Acute Rehab PT: Recert Date: 08/22/2021 Discharge Plan: Home to [place], [place] in house with 4 ILANA with [...] will have a flap surgery tomorrow at [place], auto tune up mechanic at 1215. Patient needs a shower this [...] Cross, PT - 08/13/2021 10:59 AM CDT Test Man Post-Acute Rehab PT: Recert Date: 08/22/2021 Discharge Plan: Home to [place], [place] in house with 4 ILANA with [...] Corona SLP - 08/12/2021 4:38 PM CDT Test Man Post-Acute Rehab TRAINING AND DEVELOPMENT DIRECTOR: Discharge Plan: no ongoing TRAINING AND DEVELOPMENT DIRECTOR interventions Precautions: IV antibiotics Current Status: Communication: [...] pt recalled 5/5 with no cues from TRAINING AND DEVELOPMENT DIRECTOR.Educated in use of mental imagery strategy in [...] Castellanos PTA - 08/12/2021 12:27 PM CDT Test Man Post-Acute Rehab PT: Recert Date: 08/22/2021 Discharge Plan: Home to [place], [place] in house with 4 ILANA with [...] Corona SLP - 08/10/2021 5:05 PM CDT Test Man Post-Acute Rehab TRAINING AND DEVELOPMENT DIRECTOR: Discharge Plan: no ongoing TRAINING AND DEVELOPMENT DIRECTOR interventions Precautions: IV antibiotics Current Status: Communication: [...] Castellanos PTA - 08/10/2021 3:54 PM CDT Test Man Post-Acute Rehab PT: Recert Date: 08/22/2021 Discharge Plan: Home to [place], [place] in house with 4 ILANA with [...] 99.5. Plan of Care - Gucci Ko TRAINING AND DEVELOPMENT DIRECTOR - 08/09/2021 9:56 AM CDT Test Man Post-Acute Rehab TRAINING AND DEVELOPMENT DIRECTOR: Discharge Plan: no ongoing TRAINING AND DEVELOPMENT DIRECTOR interventions Precautions: IV antibiotics Current Status: Communication: [...] Jensen PTA - 08/09/2021 9:15 AM CDT Test Man Post-Acute Rehab PT: Recert Date: 08/22/2021 Discharge Plan: Home to [place], [place] in house with 4 ILANA with [...] Jensen PTA - 08/08/2021 4:34 PM CDT Test Man Post-Acute Rehab PT: Recert Date: 08/22/2021 Discharge Plan: Home to [place], [place] in house with 4 ILANA with [...] training. Plan of Care - Gucci Ko TRAINING AND DEVELOPMENT DIRECTOR - 08/08/2021 4:04 PM CDT Test Man Post-Acute Rehab TRAINING AND DEVELOPMENT DIRECTOR: Discharge Plan: Likely ongoing TRAINING AND DEVELOPMENT DIRECTOR Precautions: IV antibiotics Current Status: Communication: WNL [...] sleep. Indep.in room w/knee scooter and to [facility]. Continues IV abx via SL valved picc [...] Jensen PTA - 08/07/2021 4:04 PM CDT Test Man Post-Acute Rehab PT: Recert Date: 08/22/2021 Discharge Plan: Home to [place], [place] in house with 4 ILANA with [...] Cross, PT - 08/06/2021 1:16 PM CDT Test Man Post-Acute Rehab PT: Recert Date: 08/22/2021 Discharge Plan: Home to [place], [place] in house with 4 ILANA with [...] More, PT - 08/05/2021 5:46 PM CDT Test Man Post-Acute Rehab PT: Recert Date: 08/22/2021 Discharge Plan: Home to [place], [place] in house with 4 ILANA with [...] Ko SLP - 08/04/2021 12:27 PM CDT Test Man Post-Acute Rehab TRAINING AND DEVELOPMENT DIRECTOR: Discharge Plan: Likely ongoing TRAINING AND DEVELOPMENT DIRECTOR Precautions: IV antibiotics Current Status: Communication: WNL [...] Medina, VARINDER - 08/03/2021 2:23 PM CDT Test Man Post-Acute Rehab TRAINING AND DEVELOPMENT DIRECTOR: Discharge Plan: Likely ongoing TRAINING AND DEVELOPMENT DIRECTOR Precautions: IV antibiotics Current Status: Communication: WNL [...] Vicente, PT - 08/03/2021 11:27 AM CDT Test Man Post-Acute Rehab PT: Recert Date: 08/22/2021 Discharge Plan: Home to [place], [place] in house with 4 ILANA with [...] with pt to discuss COVID vaccine status. Funnel Coater offered and provided education re COVID vaccine [...] POC. Plan of Care - Gucci Ko TRAINING AND DEVELOPMENT DIRECTOR - 08/01/2021 4:52 PM CDT Test Man Post-Acute Rehab TRAINING AND DEVELOPMENT DIRECTOR: Discharge Plan: Likely ongoing TRAINING AND DEVELOPMENT DIRECTOR Precautions: IV antibiotics Current Status: Communication: WNL expressive and receptive language Cognition: Mild cognitive impairment- memory, attention, executive function/visuospatial deficits. Swallow:Regular/thin; not formally assessed on TCU Assessment: TRAINING AND DEVELOPMENT DIRECTOR: Patient engaged in deductive reasoning task. Focus this date on strategies to recognize and correct errors. Patient this date was able to recognize errors but unable to repair without significant assistance. Discussed plan with patient to extend TRAINING AND DEVELOPMENT DIRECTOR interventions into early next week pending progress and discharge plan. Other Barriers to Discharge (Family Training, etc): none noted at this time. Plan of Care - Marycarmen Cross, PT - 08/01/2021 4:16 PM CDT Test Man Post-Acute Rehab PT: Recert Date: 08/22/2021 Discharge Plan: Home to [place], [place] in house with 4 ILANA with [...] goal(s). See goals on Care Plan in [facility] electronic health record for goal [...] PM CDT Care Coordination: Patient's mother called health underwriter to communicate concerns she had about patient leaving the facility tomorrow for a pass to go home to sign a lease. She stated that patient has alcoholism and she is concerned she is leaving to drink. She states that patient has participated in inpatient treatment multiple times and has relapsed after every treatment. She states that patient has a social work job titles assigned to her in the community and did have a counselor. She states that patient was actively drinking priorto hospitalization. Patient's mother has been taking care of her children. Her mother states she haslost her own job trying to take care of the children and would like patient to have a sobriety plan for when she discharges home. Funnel Coater did alert MD on TCU, social work, and DON. Leydi Alarcon RN, BSN, CRRN Patient Leach Cell Operator Acute Rehabilitation Unit/Transitional Care Unit : [phone] Pager: [phone] Care Plan - So Rojas RN - [...] Joel OTA - 08/01/2021 10:22 AM CDT Test Man Post-Acute Rehab OT: Discharge Plan: home w/ [...] modified indep it items accessible. IADLs: indep HAND TACKER per pt, demo simple kitchen mobility and [...] Demonstrates good safety with use of knee rubber grinder with ambulation. Other Barriers to Discharge (DME, [...] - 07/31/2021 3:36 PM CDT Care Coordination Funnel Coater met with patient to assess level of support patient would have at home. Patient stated her mom was her primary support. Mother is currently watching patients children. Patient stated she would have to talk to her mother to see if she was willing to learn the dressing changes, and IV antibiotics. Funnel Coater asked for permission to discuss update with patients mother, patient granted health underwriter this permission. Funnel Coater called mother. Mother discussed that she was already feeling overwhelmed with the responsibility of watching the kids. Mother was not willing to commit to learning the dressing change or IV antibiotics at this time. Funnel Coater will bring this information back to IDT to reassess plan of care. Brittnee Scott RN Plan of Care - Gucci Ko SLP - 07/31/2021 12:56 PM CDT Test Man Post-Acute Rehab TRAINING AND DEVELOPMENT DIRECTOR: Discharge Plan: Likely ongoing TRAINING AND DEVELOPMENT DIRECTOR Precautions: IV antibiotics Current Status: Communication: WNL [...] Richter OT - 07/31/2021 12:51 PM CDT Test Man Post-Acute Rehab OT: Discharge Plan: home w/ [...] modified indep it items accessible. IADLs: indep HAND TACKER per pt, demo simple kitchen mobility and [...] was effective. Wound vac taken off by [facility] nurse and mepilex dressing on. PICC line [...] side commode indep. Has the scooter at [facility] Skin: Red bumps on left upper arm and right lower leg Pain: Yes c/o of aching all over CMS: intact Dressing: PICC dressing, and right ankle dressing, wound vac removed today by [facility] Diet: regualr LDA: Picc left AC Equipment: [...] patient Plan of Care - Gucci Ko, TRAINING AND DEVELOPMENT DIRECTOR - 07/30/2021 12:49 PM CDT Test Man Post-Acute Rehab TRAINING AND DEVELOPMENT DIRECTOR: Discharge Plan: Likely ongoing TRAINING AND DEVELOPMENT DIRECTOR Precautions: IV antibiotics Current Status: Communication: WNL [...] Aguilera OTA - 07/30/2021 12:41 PM CDT Test Man Post-Acute Rehab OT: Discharge Plan: home w/ [...] (pericares per nsg w/ setup) IADLs: indep HAND TACKER per pt, Vision/Cognition: glasses, demo impaired memory,reasoning [...] Cross PT - 07/29/2021 4:35 PM CDT Test Man Post-Acute Rehab PT: Discharge Plan: Home to [place], [place] in house with 4 ILANA with [...] 97 % Patient does not have new o2yeljhlttip symptoms. Patient does not have new sore [...] Aguilera OTA - 07/28/2021 12:52 PM CDT Test Man Post-Acute Rehab OT: Discharge Plan: home w/ [...] (pericares per nsg w/ setup) IADLs: indep HAND TACKER per pt, Vision/Cognition: glasses, demo impaired memory,reasoning [...] Corona SLP - 07/27/2021 5:18 PM CDT Test Man Post-Acute Rehab TRAINING AND DEVELOPMENT DIRECTOR: Discharge Plan: Home, TBD if ongoing TRAINING AND DEVELOPMENT DIRECTOR Precautions: IV antibiotics Current Status: Communication: WNL [...] schedules at prior level of function. Skilled TRAINING AND DEVELOPMENT DIRECTOR services indicatedto train in compensatory memory strategies [...] - 07/27/2021 12:15 PM CDT Care Coordination: Funnel Coater met with patient. Funnel Coater introduced role of care coordination. Patient stated they would havemother for support. Patient stated mother would be open to learning abx infusion training, and woundcare training. Funnel Coater will place PLC training, and follow up with wound care education pending woundcare plan for discharge. Encouraged patient to reach out with any questions regarding POC. Left nameand number on patients white board. Brittnee Scott RN Plan of Care - Marycarmen Cross PT - 07/27/2021 10:17 AM CDT Test Man Post-Acute Rehab PT: Discharge Plan: Home to [place], [place] in house with 4 ILANA with [...] Vicente, PT - 07/26/2021 10:36 AM CDT Test Man Post-Acute Rehab PT: Discharge Plan: Home to [place], [place] in house with 4 ILANA with [...] Gibbs, OT - 07/26/2021 7:58 AM CDT Test Man Post-Acute Rehab OT: Discharge Plan: home w/ [...] (pericares per nsg w/ setup) IADLs: indep HAND TACKER per pt, Vision/Cognition: glasses, demo impaired memory,reasoning [...] prn pain meds for right ankle pain. [facility] nurse changed vac dressing today without problems [...] Castellanos PTA - 07/25/2021 4:06 PM CDT Test Man Post-Acute Rehab PT: Discharge Plan: Home to [place], [place] in house with 4 ILANA with [...] Richter OT - 07/25/2021 12:22 PM CDT Test Man Post-Acute Rehab OT: Discharge Plan: home w/ [...] (pericares per nsg w/ setup) IADLs: indep HAND TACKER per pt, Vision/Cognition: glasses, demo impaired memory,reasoning [...] Richter OT - 07/24/2021 12:59 PM CDT Test Man Post-Acute Rehab OT: Discharge Plan: home w/ mom to support PRN, Recert: 08/22 Precautions: NWB RLE, falls, mild cog deficits , IV antibiotics, wound vac Current Status: ADLs: Mobility: sba Grooming: sba Dressing: sba ub and LB drg Bathing: NT Toileting: NT IADLs: indep HAND TACKER per pt, Vision/Cognition: glasses, demo impaired memory,reasoning [...] chair Pharmacy-Medication Regimen Review - Suze Morales [facility] - 07/24/2021 12:21 PM CDT Pharmacy Medication [...] are listed with recommendations. Suze Morales, SidneyD, [facility] Current Facility-Administered Medications: ??? [START ON [...] nicotine Patch in Place, , Transdermal, Q8H [facility], La Nena Babb MD ??? Nurse [...] Stone PT - 07/24/2021 12:12 PM CDT Test Man Post-Acute Rehab PT: Discharge Plan: Home to [place], [place] in house with 4 ILANA with [...] IV abx q8hrs. Pt.states picc placed @ [facility]. Prefers to keep dinner tray [...] on regular diet. Requested to see social work job titles about setting up Advance Directive, sticky note [...] Visit Wound Care Luis Camara DPM [address] [place], [place] [address] (Francisco molina) 01/21/2022 PRE VISIT Gastroenterology Landon Warren, *-*HEATHER G RECORDS*-* MD Luis Fernando 516 [facility] 2A [place], [place] [address] (Francisco molina) 01/21/2022 Office Visit Gastroenterology Juanis Mckenzie [address] [facility] [place] [address] Luis Fernando Miles MD 516 [facility] [place] [address] Scheduled Referrals Name Type Priority Associated Diagnoses [...] (ABNORMAL) Manual Differential (08/20/2021 7:36 AM CDT) [facility] Method Time Signature % Neutrophils 45 % [...] City/State/ZIP Code Phon e Number UR LABORATORY [facility] [place] [address] Care Lab [address] [facility], Room M309 (ABNORMAL) CBC with platelets and differential (08/20/2021 7:36 AM CDT) [facility] gist Method Time Signature WBC Count [...] - BLOOD ORDERABLES Performing Organization Address City/[facility]/ZIP Code [place] [address] [address] [place] [address], Room M309 (ABNORMAL) CRP inflammation (08/20/2021 7:36 AM CDT) [facility] Method Time Signature CRP Inflammation 8.9 (H) 0.0 - 8.0 08/20/2021 UR LABORATOR Y mg/L 8:08 AM CDT Specimen Anatomical Collection Method / Collection Time Recei isak Time (Source) Location / Volume Laterality Blood STRUCTURE OF LEFT Venipuncture / 08/20/2021 7:36 08/20 7:40 UPPER LIMB / Unknown AM CDT AM CDT Unknown La Nena Babb MD LAB - BLOOD ORDERABLES Performing Organization Address City/State/[facility] [place] [address] Care [address] [place] [address], Room M309 (ABNORMAL) Basic metabolic panel (08/20/2021 7:36 AM CDT) [facility] Method Time Signature Sodium 142 133 - [...] and gender (Paul et al., NEJ, DOI: 10.1056/[id number]) Specimen Anatomical Collection Method / Collection Time Recei isak Time (Source) Location / Volume Laterality Blood STRUCTURE OF LEFT Venipuncture / 08/20/2021 7:36 08/20 7:40 UPPER LIMB / Unknown AM CDT AM CDT Unknown La Nena Babb MD LAB - BLOOD ORDERABLES Performing Organization Address City/State/ZIP Code [place] [address] [address] [place] [address], Room M309 Extra Green Top ([place] Heparin) Tube (08/17/2021 5:07 AM CDT) P [...] City/State/ZIP Code [place] [address] Care Lab [address] [place] [address], Room M309 (ABNORMAL) CBC with platelets (08/17/2021 [...] City/State/ZIP Code [place] [address] [address] [place] [address], Room M309 Extra Purple Top Tube (08/16/2021 [...] City/State/ZIP Code [place] [phone] [place] [address], Room M309 (ABNORMAL) Hepatic panel (08/16/2021 1:05 PM CDT) [facility] Method Time Signature Bilirubin Total 0.5 0.2 [...] City/State/ZIP Code [place] [address] Care [address] [place] [address], Room M309 (ABNORMAL) Basic metabolic panel (08/16/2021 1:05 PM CDT) [facility] Method Time Signature Sodium 138 133 - [...] and gender (Paul et al., NEJ, DOI: 10.1056/[id number]) Specimen Anatomical Collection Method / Collection Time Recei isak Time (Source) Location / Volume Laterality Blood STRUCTURE OF LEFT Venipuncture / 08/16/2021 1:05 08/16 1:16 UPPER LIMB / Unknown PM CDT PM CDT Unknown La Nena Babb MD LAB - BLOOD ORDERABLES Performing Organization Address City/State/ZIP Code [place] [phone] Care Lab [address] [facility], Room M309 Asymptomatic COVID-19 Virus (Coronavirus) [...] exposure or clinical presentation sugges ts COVID-19. ??[facility] are certified under the Clinical Laborat ory Improvement Amendments of 1988 (CLIA-88) as qualified to perform moderate and/or high complexity laboratory testing. Christiano Santacruz MD LAB - MICRO GENERAL ORDERABL ES Performing Organization Address City/State/ZIP Code [place] [address] Care Lab [address] [facility], Room M309 (ABNORMAL) CBC with platelets and differential (08/13/2021 6:05 AM CDT) [facility] gist Method Time Signature WBC Count [...] City/State/ZIP Code [place] [address] Care Lab [address] [facility], Room M309 CRP inflammation (08/13/2021 6:05 [...] City/State/ZIP Code [place] [address] Care Lab [facility], Room M309 (ABNORMAL) Basic metabolic panel [...] and gender (Paul et al., NEJ, DOI: 10.1056/[id number]) Specimen Anatomical Collection Method / Collection Time Recei isak Time (Source) Location / Volume Laterality Blood STRUCTURE OF LEFT Venipuncture / 08/13/2021 6:05 08/13 6:34 UPPER LIMB / Unknown AM CDT AM CDT Unknown La Nena Babb MD LAB - BLOOD ORDERABLES Performing Organization Address City/State/ZIP Code [place] [address] Care Lab [address] [facility], Room M309 Asymptomatic COVID-19 Virus (Coronavirus) by PCR Nasopharyngeal (08/10/2021 2:52 PM CDT) [facility] Method Time Signature SARS CoV2 PCR Negative [...] This charito t was validated by the [facility]ious [facility] nostic [facility]. This laboratory is certified under the Clinic [place] Laboratory Improvement Amendments of 1988 (CLIA-88) as qualifie d to perform high and/or moderate complexity laboratory testing. Kayden Mendes MD LAB - MICRO GENERAL ORDERABL ES Performing Organization Address City/State/ZIP Code Phon e Number [facility]U IDD LABORATORY [facility] [place] [address] [address]ag[address] [facility], Room D297 Extra Purple Top Tube [...] City/State/ZIP Code Phon e Number UR LABORATORY [facility] [place] [address] Care Lab [address] [facility], Room M309 (ABNORMAL) Basic metabolic panel [...] and gender (Paul et al., NEJ, DOI: 10.1056/[id number]) Specimen Anatomical Collection Method / Collection Time Recei isak Time (Source) Location / Volume Laterality Blood STRUCTURE OF LEFT Venipuncture / 08/09/2021 5:45 08/09 6:15 UPPER LIMB / Unknown AM CDT AM CDT Unknown La Nena Babb MD LAB - BLOOD ORDERABLES Performing Organization Address City/State/ZIP Code [place] [address] [place] [address], Room M309 CRP inflammation (08/06/2021 6:00 AM [...] City/State/ZIP Code [place] [address] [address] [place] [address], Room M309 (ABNORMAL) Basic metabolic panel (08/06/2021 [...] and gender (Paul et al., NEJM, DOI: 10.1056/[id number]) Specimen Anatomical Collection Method Collection Time Receive d Time (Source) Location / / Volume Laterality Blood STRUCTURE OF LEFT VAD(CVC, PICC) / 08/06/2021 6:00 AM 08/06/2021 6:36 UPPER LIMB / Unknown CDT AM CDT Unknown La Nena Babb MD LAB - BLOOD ORDERABLES Performing Organization Address City/State/ZIP Code [place] [address] Care Lab [address] [facility], Room M309 (ABNORMAL) CBC with platelets and differential (08/06/2021 5:58 AM CDT) [facility] Method Time Signature WBC Count 5.0 4.0 [...] City/State/ZIP Code Phon e Number UR LABORATORY [facility] [place] [place] [phone] Care Lab [address] [facility], Room M309 (ABNORMAL) Basic metabolic panel (08/02/2021 6:13 AM CDT) [facility] gist Method Time Signature Sodium 142 [...] and gender (Paul et al., NE, DOI: 10.1056/[id number]) Specimen Anatomical Collection Method Collection Time Receive d Time (Source) Location / / Volume Laterality Blood STRUCTURE OF LEFT VAD(CVC, PICC) / 08/02/2021 6:13 AM 08/02/2021 6:24 UPPER LIMB / Unknown CDT AM CDT Unknown La Nena Babb MD LAB - BLOOD ORDERABLES Performing Organization Address City/State/ZIP Code [place] [address] Care Lab [address] [facility], Room M309 (ABNORMAL) CBC with platelets and differential (07/30/2021 5:53 AM CDT) [facility] gist Method Time Signature WBC Count [...] City/State/ZIP Code [place] [address] Care Lab [address] [facility], Room M309 (ABNORMAL) CRP inflammation (07/30/2021 5:53 AM CDT) [facility] Method Time Signature CRP Inflammation 9.1 (H) [...] City/State/ZIP Code Phon e Number UR LABORATORY [facility] [place] [address] Care Lab [address] [facility], Room M309 (ABNORMAL) Basic metabolic panel [...] and gender (Paul et al., NEJM, DOI: 10.1056/[id number]) Specimen Anatomical Collection Method / Collection Time Recei isak Time (Source) Location / Volume Laterality Blood STRUCTURE OF RIGHT Venipuncture / 07/30/2021 5:53 07/18 7:01 UPPER LIMB / Unknown AM CDT AM CDT Unknown La Nena Babb MD LAB - BLOOD ORDERABLES Performing Organization Address City/State/ZIP [place] [address] Care Lab [address] [facility], Room M309 (ABNORMAL) Basic metabolic panel [...] and gender (Paul et al., NEJM, DOI: 10.1056/[id number]) Specimen Anatomical Collection Method Collection Time Receive d Time (Source) Location / / Volume Laterality Blood CATHETER / Unknown VAD(CVC, PICC) / 07/26/2021 8:05 AM 07/26/2021 8:14 Unknown CDT AM CDT La Nena Babb MD LAB - BLOOD ORDERABLES Performing Organization Address City/State/ZIP Code [place] [address] [address] [place] [address], Room M309 Extra Purple Top Tube (07/26/2021 [...] - BLOOD ORDERABLES Performing Organization Address City/[facility]/ZIP Code [place] [address] [address] [place] [address], Room M309 Extra Purple Top Tube (07/25/2021 5:51 AM CDT) athologist Signature Hold Specimen [facility] 07/25/2021 UR LABORATORY 7:48 AM CDT Specimen Anatomical Collection Method Collection Time Receive d Time (Source) Location / / Volume Laterality Blood VENOUS LINE / VAD(CVC, PICC) / 07/25/2021 5:51 AM 06/0 09/2021 6:44 Unknown Unknown CDT AM CDT La Nena Babb MD LAB - BLOOD ORDERABLES Performing Organization Address City/State/ZIP Code [place] [address] [address] [place] [address], Room M309 TSH with free T4 reflex [...] City/State/ZIP Code Phon e Number UR LABORATORY [facility] [place] [address] Care Lab [address] [facility], Room M309 documented in this encounter [...] Bautista, GENARO) 0807 (Given - Provider: Roxy Bauitsta RN) 0830 (Given - Provider: Maryam Rose, [...] RN) 0807 (Patch/Med Removed - Provider: Tracie Bauitsta RN)0818 (Patch/Med Applied - Provider: Roxy Bautista RN) 0830 (Patch/Med Removed - Provider: Dulce Maria Rose RN)0831 (Patch/Med Applied - Provider: Maryam Rose RN) 1 patch, Transdermal, EVERY 24 HOURS, Ad lockstitch shoulder joiner over 24 Hours, First dose on Fri07/24/21 at 0800, Indications: Nicotine Dependence, Reminder: Remove previous patch before applying new patch. nicotine Patch in Place 0619 (Patch in Place - Provi nia: Ferderick Jack RN)1425 (Patch in Place - Provider: Roxy Batuista RN)2130 (Patch Free Period - Provider: Radames [...] as of this encounter Care Teams Manager Data Center Relationship Specialty Start Date End Date Juanis Mckenzie PCP - General Addiction Medicine 06/29/21 [address] [place] [address] Stephani Pina, Assigned PCP 02/25/21 ARCHITECT NAVAL HUMAN RESOURCES MANAGER [address] [place] [address] Elsa Yeh, Registered Nurse Infectious Diseases 07/25/21 RN Rogelio Treadwell Assigned Musculoskeletal 08/04/21 MD August Provider [address] [place] [address] Luis Camara MD Podiatry 08/16/21 CALVIN Burnett [address] [place] [address] documented as of this encounter
--- OUTSIDE RECORDS SUMMARY | 2021-12-14 16:15 | XMS_ITS | Encounter Summary ---
:1980 Author Organization [place] Address [address] [place] [address] Care Team Providers Name Role Phone Stephani Pina FARZANA CAR PAINTER Unavailable [phone] Juanis Levi Primary Care Provider Elsa Yeh RN Unavailable Unavailable Rogelio Treadwell MD Unavailable [phone] Reason for Visit Auth/Cert Specialty Diagnoses / Procedures Referred By Contact Refer red To Contact Surgery Diagnoses Non-healing surgical wound, subsequent encounter Non-healing surgical wound, subsequent encounter [T81.89XD] [facility] Main Or Procedures HC SPLIT GRFT,HEAD,FAC,HAND,FEET <100SQCM Right ankle split skin graft from right.left thigh [address] [facility] 5th [place] [address] Phone: Fax: Referral ID Status Reason Start Date Expiration Date Visits Requ ested Visits Authorized [id number] 1 1 Encounter Details Date Type Department Care Team Description 08/15/2021 Anesthesia Event [facility] Karen Garnett MD [address] [facility] [address] [place] [address] OR Roosevelt Faye MD [address] [place] [address] [address] Anesthesia Record Procedure Summary Procedure [...] Placement Rubia Pina, Km Pina, Time: 1426 INSPECTOR SUBASSEMBLY FLOORS BUFFER INSPECTOR SUBASSEMBLY FLOORS BUFFER documented in this encounter Social History Tobacco [...] at Date Recorded Female 01/14/2020 10:57 AM PREFLIGHT INSPECTOR COVID-19 Exposure Response Date Recorded In the [...] Luciano MD; Location: UR OR ??? STEAM BRUSH OPERATOR SURGERY ??? IRRIGATION AND DEBRIDEMENT FOOT, [...] and realistic alternatives discussed. Questions answered and patient/access service representative(s) expressed understanding. - Discussed: - [...] Visit Wound Care Luis Camara DPM [address] [place] [address] (Wo rk) 01/21/2022 PRE VISIT Gastroenterology Landon Warren, *-*WANDAIN G RECORDS*-* MD Luis Fernando [address] [address] (Wo rk) 01/21/2022 Office Visit Gastroenterology Juanis Levi 24[address] [place] [address] Luis Fernando Miles MD 6 [facility] 2A [place] [address] documented as of this encounter Visit Diagnoses [...] documented as of this encounter Care Teams High Raw Sugar Boiler Relationship Specialty Start Date End Date Juanis Levi PCP - General Addiction Medicine 06/29/21 [address] [place] [phone] Stephani Pina, Assigned PCP 02/25/21 INSPECTOR SUBASSEMBLY CAR PAINTER [address] [place] [address] Elsa Yeh, Registered Nurse Infectious Diseases 07/25/21 RN Rogelio Treadwell Assigned Musculoskeletal 08/04/21 MD August Provider [address] [place], [place] [address] documented as of this encounter
--- OUTSIDE RECORDS SUMMARY | 2021-12-14 16:15 | XMS_ITS | Encounter Summary ---
:1980 Author Organization [place] Address [address] [place] [address] Care Team Providers Name Role Phone Stephani Pina FARZANA RESPIRATORY SUPPORT TECHNICIAN Unavailable [phone] Juanis Levi Primary Care Provider Elsa [...] at Date Recorded Female 01/14/2020 10:57 AM MOTORIZED SQUAD CAPTAIN COVID-19 Exposure Response Date Recorded In the last 10 days, have you been in contact with No / Unsu re 07/31/2021 1:25 PM CDT someone who was confirmed or suspected to have Coronavirus/COVID-19? documented as of this encounter Plan of Treatment Upcoming Encounters Date Type Specialty Care Team Description 12/20/2021 Office Visit Wound Care Luis Camara DPM [address] [place] [address] (Wo rk) 01/21/2022 PRE VISIT Gastroenterology Landon Warren, *-*HEATHER Barriga RECORDS*-* MD Luis Fernando [address] [facility] [place] [address] (Wo rk) 01/21/2022 Office Visit Gastroenterology Juanis Levi [address] [place] [address] Luis Fernando Miles MD 516 [facility] [address] [place], [place] [address] documented as of this encounter Visit Diagnoses Not on filedocumented in this encounter Additional Health Concerns Infection Onset Date Last Indicated Resolved Time MRSAComment: Added from external infection. 11/07/201406/18 Assessment Noted Time PHQ-9 Depression Total Score: 2 12/15/2020 1:07 PM CDT documented as of this encounter Care Teams Relations Manager Relationship Specialty Start Date End Date Juanis Levi PCP - General Addiction Medicine 06/29/21 Counts include 234 beds at the [facility]0 [place] [address] Stephani Pina, PLUMBING MECHANIC RESPIRATORY SUPPORT TECHNICIAN Assigned PCP 02/25/21 [facility] [address] [place], [place] [address] Elsa Yeh, RN Registered Nurse Infectious Diseases 07/25/21 documented as of this encounter
--- OUTSIDE RECORDS SUMMARY | 2021-12-14 16:15 | XMS_ITS | Encounter Summary ---
:1980 Author Organization [place] Address [address] [place] [address] Care Team Providers Name Role Phone Stephani Pina STEAM BOX HAND CLIENT SERVICE 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 Unavailable Juanis Levi Primary Care Provider Elsa Yeh RN Unavailable Unavailable Reason for Visit Reason Comments Schedule Surgery Encounter Details Date Type Department Care Team Description 08/01/2021 Documentation Only [facility] Camryn Christina [facility] Surgery Plastic and MD Lexie Reconstruct[facility] Surgery [address] [place] [address] [address] [address] [place], [place] [phone] [address] (Work) [phone] Social History Tobacco Use Types Packs/Day Years Used Date Smoking Tobacco: Every Day Cigarettes 0.3 10 Smokeless Tobacco: Never Comments: 5-8 cigarettes a day Alcohol Use Standard Drinks/Week Comments Not Currently 0 (1 standard drink = 0.6 oz pure alcoho l) sober since 08/2020 Sex Assigned at Date Recorded Female 01/14/2020 10:57 AM CLAIMS PROCESSOR COVID-19 Exposure Response Date Recorded In the last 10 days, have you been in contact with No / Unsu re 07/31/2021 1:25 PM CDT someone who was confirmed or suspected to have Coronavirus/COVID-19? documented as of this encounter Progress Notes Yessenia Marquez - 08/01/2021 10:05 AM CDT RN Communication Professor: Lesly Pina; [phone] Surgery is scheduled with Dr. Christina on 08/15 at the [facility] Scheduled per [...] Care Luis Camara, CALVIN [address] [place], [place] [address] (Wo rk) 01/21/2022 PRE VISIT Gastroenterology Landon Warren, *-*INCOMIN G RECORDS*-* MD Luis Fernando [address] [place] [id number] (Wo rk) 01/21/2022 Office Visit Gastroenterology Juanis Levi [address] [place] [phone] Luis Fernando Miles MD [address] [place] [id number] documented as of this encounter Visit Diagnoses Not on filedocumented in this encounter Additional Health Concerns Infection Onset Date Last Indicated Resolved Time MRSAComment: Added from external infection. 11/07/201406/18 Assessment Noted Time PHQ-9 Depression Total Score: 2 12/15/2020 1:07 PM CDT documented as of this encounter Care Teams Bacteriologist Medical Relationship Specialty Start Date End Date Juanis Levi PCP - General Addiction Medicine 06/29/[address] [place] [address] Stephani Pina APRN CLIENT SERVICE 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 Assigned PCP 02/25/21 [address] [place], [place] [address] Elsa Yeh, RN Registered Nurse Infectious Diseases 07/25/21 documented as of this encounter
--- OUTSIDE RECORDS SUMMARY | 2021-12-14 16:15 | XMS_ITS | Encounter Summary ---
:1980 Author Organization [place] Address [address] [place] [address] Care Team Providers Name Role Phone Stephani Pina APRN PRINCIPAL SECURITY ARCHITECT Unavailable [phone] Juanis Levi Primary Care Provider Elsa Yeh RN Unavailable Unavailable Rogelio Treadwell MD Unavailable [phone] Encounter Details Date Type Department Care [...] at Date Recorded Female 01/14/2020 10:57 AM BOOKER COVID-19 Exposure Response Date Recorded In the last 10 days, have you been in contact with No / Unsu re 08/15/2021 12:42 PM CDT someone who was confirmed or suspected to have Coronavirus/COVID-19? documented as of this encounter Plan of Treatment Upcoming Encounters Date Type Specialty Care Team Description 12/20/2021 Office Visit Wound Care Luis Camara, CALVIN [address] [place] [address] (Wo rk) 01/21/2022 PRE VISIT Gastroenterology Landon Warren, *-*WANDAIN G RECORDS*-* MD Luis Fernando 6 [facility] 2A [place], [place] [address] (Wo rk) 01/21/2022 Office Visit Gastroenterology Juanis Levi [address] [place] [address] Luis Fernando Miles MD 6 [facility] [address]A [place], [place] [address] documented as of this encounter Visit Diagnoses Not on filedocumented in this encounter Additional Health Concerns Infection Onset Date Last Indicated Resolved Time MRSAComment: Added from external infection. 11/07/201406/18 Assessment Noted Time PHQ-9 Depression Total Score: 2 12/15/2020 1:07 PM CDT documented as of this encounter Care Teams Claim Adjuster Relationship Specialty Start Date End Date Juanis Levi PCP - General Addiction Medicine 06/29/[address] [place] [address] Stephani Pina, Assigned PCP 02/25/21 SUPERVISOR NATURAL GAS PLANT PRINCIPAL SECURITY ARCHITECT [address] [place], [place] [address] Elsa Yeh, Registered Nurse Infectious Diseases 07/25/21 RN Rogelio Treadwell Assigned Musculoskeletal 08/04/21 MD August Provider [address] [place], [place] [phone] documented as of this encounter
--- OUTSIDE RECORDS SUMMARY | 2021-12-14 16:15 | XMS_ITS | Encounter Summary ---
:1980 Author Organization [place] Address [address] [facility] [place] [address] Care Team Providers Name Role Phone Stephani Pina MUD GRINDER CONCRETE LAYER Unavailable [phone] Juanis Levi Primary Care Provider Elsa Yeh RN Unavailable Unavailable Rogelio Treadwell MD Unavailable [phone] Luis Camara DPM Unavailable [phone] Camryn Christina MD Unavailable Sintia Lange PA-C Unavailable Luis Fernando Miles MD Unavailable [phone] Encounter Details Date Type Department Care Team Description 08/15/2021 Hospital Encounter [facility] Liz swan, Transitional Care Unit MD Eros Saxton 2450 [facility] [address] [place] [address] [id number] (Wo rk) Social History Tobacco Use Types Packs/Day Years Used Date Smoking Tobacco: Every Day Cigarettes 0.3 10 Smokeless Tobacco: Never Comments: 5-8 cigarettes a day (hasn't s moked since in transitional care 6/6/22) Alcohol Use Standard Drinks/Week Comments Not Currently 0 (1 standard drink = 0.6 oz pure alcoho l) sober since 05/08 Sex Assigned at Date Recorded Female 01/14/2020 10:57 AM FINGERNAIL FORMER COVID-19 Exposure Response Date Recorded In the last 10 days, have you been in Unable to assess 12:39 PM CDT contact with someone who was confirmed or suspected to have Coronavirus/COVID-19? documented as of this encounter Plan of Treatment Upcoming Encounters Date Type Specialty Care Team Description 12/20/2021 Office Visit Wound Care Luis Camara, [place] [address]09 [place], [place] [address]275 (Wo rk) 01/21/2022 PRE VISIT Gastroenterology Landon Warren, *-*WANDAIN G RECORDS*-* MD Luis Fernando [address] [place] [address] (Wo rk) 01/21/2022 Office Visit Gastroenterology Juanis Levi [address] [place] [address] Luis Fernando Miles MD [address] [place] [phone] documented as of this encounter Visit Diagnoses Not on filedocumented in this encounter Additional Health Concerns Infection Onset Date Last Indicated Resolved Time MRSAComment: Added from external infection. 11/07/201406/18 Assessment Noted Time PHQ-9 Depression Total Score: 2 12/15/2020 1:07 PM CDT documented as of this encounter Care Teams Scanning Manager Relationship Specialty Start Date End Date Juanis Levi PCP - General Addiction Medicine 06/29/[address] [place] [address] Stephani Pina, Assigned PCP 02/25/21 MUD GRINDER CONCRETE LAYER [address] [place] [address] Elsa Yeh, Registered Nurse Infectious Diseases 07/25/21 RN Rogelio Treadwell Assigned Musculoskeletal 08/04/21 MD August Provider 909 [place] [address] Luis Camara MD Podiatry 08/16/21 CALVIN Burnett 909 [place] [address] Camryn Christina Assigned Surgical 09/01/21 09/07/21 MD Lexie Provider 420 [facility] 195 [place] [address] Sintia Lange, Assigned Surgical 09/08/21 PA-C Provider 909 [facility] 4[place] [address] Landon Warren MD Gastroenterology 11/21/21 MD Luis Fernando [facility] [place] [address] documented as of this encounter
--- OUTSIDE RECORDS SUMMARY | 2021-12-14 16:15 | XMS_ITS | Encounter Summary ---
:1980 Author Organization [place] Address [address] [place] [address] Care Team Providers Name Role Phone Stephani Pina FARZANA LONG HAUL TRUCK DRIVER Unavailable [phone] Juanis Levi Primary Care Provider Elsa Yeh RN Unavailable Unavailable Rogelio Treadwell MD Unavailable [phone] Reason for Visit Auth/Cert Specialty Diagnoses / Procedures Referred By Contact Refer red To Contact Surgery Diagnoses Non-healing surgical wound, subsequent encounter Non-healing surgical wound, subsequent encounter [T81.89XD] [facility] Main Or Procedures HC SPLIT GRFT,HEAD,FAC,HAND,FEET <100SQCM Right ankle split skin graft from right.left thigh 909 [facility] 5th [place] [address] Phone: Fax: Referral ID Status Reason Start Date Expiration Date Visits Requ ested Visits Authorized [id number] 1 1 Encounter Details Date Type Department Care Team Description 08/15[facility]21 [facility] Main OR Keith Owen MD wound, subsequent [address] [place] [address] [place] [address] [address] SE [facility] 195 5th Floor [place], [place] [address] Social History Tobacco Use Types Packs/Day Years Used Date Smoking Tobacco: Former Cigarettes 0.3 10 Smokeless Tobacco: Never Comments: 5-8 cigarettes a day (hasn't s moked since in transitional care 07/23/21) Alcohol Use Standard Drinks/Week Comments Not Currently 0 (1 standard drink = 0.6 oz pure alcoho l) sober since 05/08 Sex Assigned at Date Recorded Female 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 For Medical Questions, Please Call: ? [phone], Friday - Friday, 8 a.m. - 4:30 p.m. ? After hours and on weekends, call Hospital Paging at [phone] and ask for the Plastic Surgeon ecological economist. [facility] Home Care Following Anesthesia For 24 hours after surgery: Get plenty of rest. A responsible adult must stay with you for at least 24 hours after you leave [facility]. Do not drive or use heavy [...] doctor is: Dr. Betty Christina, Plastic Surgery: [phone] Or dial [phone] and ask for the resident ecological economist for: Plastics For emergency care, call the: [facility] Emergency Department: [phone] (TTY for hearing impaired: [phone]) documented in this encounter Medications at Time [...] CDT Report given to GENARO Rooney at [facility]. Camryn Christina MD - 08/15/2021 1:55 PM [...] curette to curettage the biofilm and granulation plastic tile layer. Hemostasis was ensured, and the skin [...] MD MT: JENSHAMAR/CMQA1 Name: STEPHANI KING Account: [id number] : 1980 Procedure Date: 08/15/2021 Document: [id number] Brief Op Note - Christiano Santacruz MD - 08/15/2021 3:24 PM CDT [facility] Brief Operative Note Pre-operative diagnosis: Non-healing [...] Visit Wound Care Luis Camara DPM 909 [place], [place] [address] (Wo rk) 01/21/2022 PRE VISIT Gastroenterology Landon Warren, *-*WANDAIN G RECORDS*-* MD Luis Fernando [address] [place] [phone] (Wo rk) 01/21/2022 Office Visit Gastroenterology Juanis Levi [facility] [place] [phone] Luis Fernando Miles MD [address] [place] [address] documented as of this encounter Procedures Procedure Name Priority Date/Time Associated Diagnosis Comme nts SURGICAL PROCUREMENT, 08/15/2021 2:16 PM CDT Non-heali ng surgical GRAFT, SKIN, wound, subsequent SPLIT-THICKNESS, encounter EXTREMITY Special Needs Wound VAC ordered and approv ed. Please make sure patient brings wound vac and all supplies with on DOS. SAMMY GALEAS RESIDES AT [facility]: PLEASE CALL [phone] WITH ANY I NSTRUCTIONS AND TIME CHANGES FOR 08/15 SURGERY. THEY SET UP TRANSPORT ETC. Cristin [facility] Admission Notes since beginning of July; Dr. Christina and coordinator message to gregory ruhterford situation. Per message from coordinator, TCU will [...] documented as of this encounter Care Teams Fertilizing Machine Operator Relationship Specialty Start Date End Date Juanis Levi PCP - General Addiction Medicine 06/29/21 2450 [place] [phone] Stephani Pina, Assigned PCP 02/25/21 POLICE OFFICER LONG HAUL TRUCK DRIVER [address] [facility] 700 [place] [address] Elsa Yeh, Registered Nurse Infectious Diseases 07/25/21 RN Rogelio Treadwell Assigned Musculoskeletal 08/04/21 MD August Provider 909 [place], [place] [address] documented as of this encounter
--- OUTSIDE RECORDS SUMMARY | 2021-12-14 16:16 | XMS_ITS | Encounter Summary ---
:1980 Author Organization [place] Address [address] [place] [address] Care Team Providers Name Role Phone Stephani Pina SUGAR LABORATORY ASSISTANT RN BUILDING Unavailable [phone] Juanis Levi Primary Care Provider Elsa Yeh RN Unavailable Unavailable Reason for Visit Reason Onset Date Comments Previsit 07/31/2021 Encounter Details Date Type Department Care Team Description 07/31/2021 PRE VISIT [facility] Rogelio Treadwell, Previsit Orthopedic Clinic [address] [place] [phone] Social History Tobacco Use Types Packs/Day Years Used Date Smoking Tobacco: Every Day Cigarettes 0.3 10 Smokeless Tobacco: Never Comments: 5-8 cigarettes a day Alcohol Use Standard Drinks/Week Comments Not Currently 0 (1 standard drink = 0.6 oz pure alcoho l) sober since 08/2020 Sex Assigned at Date Recorded Female 01/14/2020 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 [facility] 12.4.19 R ankle 11.21.05 R ankle Action 6.9.22 11:12 AM KAVEH Action Taken Called [facility] fim desk and LVM for image Action July 27, 2021 4:33 PM MT Action Taken CSS recvd and resolved imgs to PACS. documented in this encounter Plan of Treatment Upcoming Encounters Date Type Specialty Care Team Description 12/20/2021 Office Visit Wound Care Luis Camara, CALVIN [address] [place], [place] [address] (Wo rk) 01/21/2022 PRE VISIT Gastroenterology Landon Warren, *-*WANDAIN G RECORDS*-* MD Luis Fernando [address] [place] [address] (Wo rk) 01/21/2022 Office Visit Gastroenterology Juanis Levi [address] [place] [address] Luis Fernando Miles MD [address] [place] [phone] documented as of this encounter Visit Diagnoses Not on filedocumented in this encounter Additional Health Concerns Infection Onset Date Last Indicated Resolved Time MRSAComment: Added from external infection. 11/07/201406/18 Assessment Noted Time PHQ-9 Depression Total Score: 2 12/15/2020 1:07 PM CDT documented as of this encounter Care Teams President Ergonomic Consulting Relationship Specialty Start Date End Date Juanis Levi PCP - General Addiction Medicine 06/29/[address] [place] [phone] Stephani Pina, SUGAR LABORATORY ASSISTANT RN BUILDING Assigned PCP 02/25/21 [address] [place] [address] Elsa Yeh, RN Registered Nurse Infectious Diseases 07/25/21 documented as of this encounter
--- OUTSIDE RECORDS SUMMARY | 2021-12-14 16:16 | XMS_ITS | Encounter Summary ---
:1980 Author Organization [place] Address 2450 [facility] [place] [address] Care Team Providers Name Role Phone Stephani Pina FARZANA COPPER PLATER Unavailable [phone] Juanis Levi Primary Care Provider Elsa Yeh RN Unavailable Unavailable Encounter Details Date Type Department Care Team Description 07/28/2021 Home Infusion [facility] Infusi on Suze Evans, [facility] [address] [facility] [address] [place], [place] [phone] [place] [address] [place] [address] (Wo rk) Social History Tobacco Use Types Packs/Day Years Used Date Smoking Tobacco: Every Day Cigarettes 0.3 10 Smokeless Tobacco: Never Comments: 5-8 cigarettes a day Alcohol Use Standard Drinks/Week Comments Not Currently 0 (1 standard drink = 0.6 oz pure alcoho l) sober since 08/2020 Sex Assigned at Date Recorded Female 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 documented in this encounter Plan of Treatment Upcoming Encounters Date Type Specialty Care Team Description 12/20/2021 Office Visit Wound Care Luis Camara, [place] [address] [place] [address] (Wo rk) 01/21/2022 PRE VISIT Gastroenterology Landon Warren, *-*WANDAIN G RECORDS*-* MD Luis Fernando 516 [facility] 2A [place] [address] (Wo rk) 01/21/2022 Office Visit Gastroenterology Juanis Levi 2450 [place] [address] Luis Fernando Miles MD [address] [phone] documented as of this encounter Visit Diagnoses Not on filedocumented in this encounter Additional Health Concerns Infection Onset Date Last Indicated Resolved Time MRSAComment: Added from external infection. 11/07/201406/18 Assessment Noted Time PHQ-9 Depression Total Score: 2 12/15/2020 1:07 PM CDT documented as of this encounter Care Teams Parasitologist Relationship Specialty Start Date End Date Juanis Levi PCP - General Addiction Medicine 06/29/21 2450 [place] [address] Stephani Pina, FARZANA COPPER PLATER Assigned PCP 02/25/21 [address] [place], [place] [address] Elsa Yeh, RN Registered Nurse Infectious Diseases 07/25/21 documented as of this encounter
--- OUTSIDE RECORDS SUMMARY | 2021-12-14 16:16 | XMS_ITS | Encounter Summary ---
:1980 Author Organization [place] Address [facility] [place] [address] Care Team Providers Name Role Phone Stephani Pina FARZANA ENVIRONMENTAL SERVICES TECHNICIAN Unavailable [phone] Juanis Levi Primary Care Provider Elsa [...] Department Care Team Description 07/31/2021 Office Visit [facility] Rogelio Treadwell Pain in joint, ankle Orthopedic Clinic MD August and foot, right [address] (Primary Dx) 9[address] [place], [place] 4th Floor [address] [place], [place] [phone] (Wo rk) [address] [phone] Social History Tobacco Use Types Packs/Day Years Used Date Smoking Tobacco: Every Day Cigarettes 0.3 10 Smokeless Tobacco: Never Comments: 5-8 cigarettes a day Alcohol Use Standard Drinks/Week Comments Not Currently 0 (1 standard drink = 0.6 oz pure alcoho l) sober since 08/2020 Sex Assigned at Date Recorded Female 01/14/2020 10:57 AM BLASTING MINER COVID-19 Exposure Response Date Recorded In the [...] documented in this encounter Nursing Notes Woody Biard EMT - 07/31/2021 1:40 PM CDT Reason [...] Wound Care Luis Camara DPM 909 [place] [address] (Wo rk) 01/21/2022 PRE VISIT Gastroenterology Landon Warren, *-*HEATHER RECORDS*-* MD Luis Fernando [address] [address] (Wo rk) 01/21/2022 Office Visit Gastroenterology Juanis Levi [facility] [place] [phone] Luis Fernando Miles MD 516 [facility] [address] [address] [place], [place] [address] documented as of this encounter Visit Diagnoses Diagnosis Pain in joint, ankle and foot, right - P rimary documented in this encounter Additional Health Concerns Infection Onset Date Last Indicated Resolved Time MRSAComment: Added from external infection. 11/07/201406/18 Assessment Noted Time PHQ-9 Depression Total Score: 2 12/15/2020 1:07 PM CDT documented as of this encounter Care Teams Water Pump Servicer Relationship Specialty Start Date End Date Juanis Levi PCP - General Addiction Medicine 06/29/[address] [place] [phone] Stephani Pina APRN ENVIRONMENTAL SERVICES TECHNICIAN Assigned PCP 02/25/21 [address] [place], [place] [address] Elsa Yeh, RN Registered Nurse Infectious Diseases 07/25/21 documented as of this encounter
--- OUTSIDE RECORDS SUMMARY | 2021-12-14 16:16 | XMS_ITS | Encounter Summary ---
:1980 Author Organization [place] Address [facility] [place] [address] Care Team Providers Name Role Phone Stephani Pina MEDICAL ONCOLOGY PHYSICIAN DATA ACQUISITION TECHNICIAN Unavailable [phone] Juanis Levi Primary Care Provider Elsa Yeh RN Unavailable Unavailable Encounter Details Date Type Department Care Team Description 07/31/2021 Orders Only M [facility] Camryn Christina surgical Plastic and MD Lexie wound, subsequent Reconstructive Surgery [address] en counter ([facility] [place] [facility] 195 Dx) 909 [place], [place] [address]th Floor [address] [place] [address] [phone] [address] (Work) [phone] Social History Tobacco Use Types Packs/Day Years Used Date Smoking Tobacco: Every Day Cigarettes 0.3 10 Smokeless Tobacco: Never Comments: 5-8 cigarettes a day Alcohol Use Standard Drinks/Week Comments Not Currently 0 (1 standard drink = 0.6 oz pure alcoho l) sober since 08/2020 Sex Assigned at Date Recorded Female 01/14/2020 10:57 AM SIX PACK LOADER 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 documented as of this encounter Plan of Treatment Upcoming Encounters Date Type Specialty Care Team Description 12/20/2021 Office Visit Wound Care Luis Camara, [place] 909 [place] [address] (Wo rk) 01/21/2022 PRE VISIT Gastroenterology Landon Warren, *-*INCOMIN G RECORDS*-* MD Luis Fernando [address] [place] [address] 2A [place], [place] [phone] (Wo rk) 01/21/2022 Office Visit Gastroenterology Juanis Levi [address] [place] [address] Luis Fernando Miles MD [address] [place] [address] documented as of this encounter Visit Diagnoses Diagnosis Non-healing surgical wound, subsequent e ncounter - Primary documented in this encounter Additional Health Concerns Infection Onset Date Last Indicated Resolved Time MRSAComment: Added from external infection. 11/07/201406/18 Assessment Noted Time PHQ-9 Depression Total Score: 2 12/15/2020 1:07 PM CDT documented as of this encounter Care Teams Still Pump Operator Relationship Specialty Start Date End Date Juanis Levi PCP - General Addiction Medicine 06/29/[address] [place] [phone] Stephani Pina APRN DATA ACQUISITION TECHNICIAN Assigned PCP 02/25/21 [address] [facility] 700 [place], [place] [address] Elsa Yeh, RN Registered Nurse Infectious Diseases 07/25/21 documented as of this encounter
--- OUTSIDE RECORDS SUMMARY | 2021-12-14 16:17 | XMS_ITS | Encounter Summary ---
:1980 Author Organization [place] Address 2450 [facility] [place] [address] Care Team Providers Name Role Phone Stephani Pina CROSSBAND LAYER MILK HOUSE WORKER Unavailable [phone] Juanis Levi Primary Care Provider Elsa Yeh RN Unavailable Unavailable Encounter Details Date Type Department Care Team Description 07/11/2021 Telephone [facility], W[facility] Healing Clinic [facility] Medical Office [address] 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 Is patient a TAYO lift? Environmental Systems Coordinator to inquire Routing to fire coordinator Ann Marie Eckert. Orders pending. Telephone [...] not manage these types of wounds in [place] and do not do wound vac dressing changes in clinic. Thank you, Marilynn Harrison RN documented in this encounter Plan of Treatment Upcoming Encounters Date Type Specialty Care Team Description 12/20/2021 Office Visit Wound Care Luis Camara DPM 909 [place], [place] [address] (Reinaldo molina) 01/21/2022 PRE VISIT Gastroenterology Landon Warren, *-*WANDAIN G RECORDS*-* MD Luis Fernando 516 [facility] 2A [place], [place] [address] (Reinaldo molina) 01/21/2022 Office Visit Gastroenterology Juanis Levi 2450 [place] [phone] Luis Fernando Miles MD 516 [facility] [address] [place], [place] [address] documented as of this encounter Visit Diagnoses Diagnosis Leg ulcer, right, with unspecified sever ity (H) - Primary documented in this encounter Additional Health Concerns Infection Onset Date Last Indicated Resolved Time MRSAComment: Added from external infection. 11/07/201406/18 Assessment Noted Time PHQ-9 Depression Total Score: 2 12/15/2020 1:07 PM CDT documented as of this encounter Care Teams Plastics Engineer Relationship Specialty Start Date End Date Juanis Levi PCP - General Addiction Medicine 06/29/21 2450 [place] [phone] Stephani Pina, FARZANA MILK HOUSE WORKER Assigned PCP 02/25/[address] [place], [place] [address] Elsa Yeh, RN Registered Nurse Infectious Diseases 07/25/21 documented as of this encounter
--- OUTSIDE RECORDS SUMMARY | 2021-12-14 16:17 | XMS_ITS | Encounter Summary ---
:1980 Author Organization [place] Address [address] [place] [address] Care Team Providers Name Role Phone Stephani Pina APRN MANAGER EXPORT Unavailable [phone] Juanis Levi Primary Care Provider Encounter Details Date Type Department Care Team Description 07/19/[address] [facility] Orthopedic [facility] [place] w[place] [address] [place] [address] 4th [place], [place] [phone] Social History Tobacco Use Types Packs/Day Years Used Date Smoking Tobacco: Every Day Cigarettes 0.3 10 Smokeless Tobacco: Never Comments: 5-8 cigarettes a day Alcohol Use Standard Drinks/Week Comments Not Currently 0 (1 standard drink = 0.6 oz pure alcoho l) sober since 08/2020 Sex Assigned at Date Recorded Female 01/14/2020 10:57 AM FILTERATION OPERATOR documented as of this encounter Miscellaneous Notes Telephone Encounter - Rossana Carroll - 07/19/2021 12:53 PM CDT 07/19-Patient is currently inpatient, will call tomorrow to get her scheduled.-LN documented in this encounter Plan of Treatment Upcoming Encounters Date Type Specialty Care Team Description 12/20/2021 Office Visit Wound Care Luis Camara, [place] 909 [place] [address] (Wo rk) 01/21/2022 PRE VISIT Gastroenterology Landon Warren, *-*WANDAIN G RECORDS*-* MD Luis Fernando [address] [place] [address] 2A [place], [place] [address] (Wo rk) 01/21/2022 Office Visit Gastroenterology Juanis Levi 2450 [place] [phone] Luis Fernando Miles MD [address] [place] [address] documented as of this encounter Visit Diagnoses Not on filedocumented in this encounter Additional Health Concerns Infection Onset Date Last Indicated Resolved Time MRSAComment: Added from external infection. 11/07/201406/18 Assessment Noted Time PHQ-9 Depression Total Score: 2 12/15/2020 1:07 PM CDT documented as of this encounter Care Teams Sheet Rocker Relationship Specialty Start Date End Date Juanis Levi PCP - General Addiction Medicine 06/29/[address] [place] [phone] Stephani Pina, HOT TAR ROOFER HELPER MANAGER EXPORT Assigned PCP 02/25/21 [facility] [address] [address] documented as of this encounter
--- OUTSIDE RECORDS SUMMARY | 2021-12-14 16:17 | XMS_ITS | Encounter Summary ---
:1980 Author Organization [facility] Address [facility] [place] [address] Care Team Providers Name Role Phone Deann Pina APRN ALCOHOL STILL OPERATOR Unavailable [phone] Juanis Mckenzie Primary Care Provider Reason for Visit Auth/Cert Specialty Diagnoses / Procedures Referred By Contact Refer red To Contact Med Surg Diagnoses Complicated Osteomyelitis Ur Ortho [address] [place] [address] [place] [address] Phone: Fax: Referral ID Status Reason Start Date Expiration Date Visits Requ ested Visits Authorized [id number] 1 1 Encounter Details Date Type Department Care Team Description [facility] [address] [place] [address] Osteomyelitis of right ankle, unspecifie d type (H) (Primary Dx); 07/23/2021 Encounter [facility] Med Surg Jaime Rae MD [address] [place] [address] [address] [place] [address] Anxiety; Orthopedic Alcohol use disorder, severe , dependence (H); [address] [place] [address] [place] [address] Social History Tobacco Use Types Packs/Day Years Used Date Smoking Tobacco: Every Day Cigarettes 0.3 10 Smokeless Tobacco: Never Comments: 5-8 cigarettes a day Alcohol Use Standard Drinks/Week Comments Not Currently 0 (1 standard drink = 0.6 oz pure alcoho l) sober since 08/2020 Sex Assigned at Date Recorded Female 01/14/2020 10:57 AM SCRAP PILER documented as of this encounter Last Filed [...] Howell MD - 07/23/2021 7:40 AM CDT [facility] Hospitalist Discharge Summary Date of Admission: 07/06/2021 Date of Discharge: 07/23/2021 Discharging Provider: Elizabeth Howell MD Discharge Service: Hospitalist Service, [facility] TEAM 17 Discharge Diagnoses [...] Follow-ups Needed After Discharge Follow-up Appointments Adult [facility] Follow-up and recommended labs and tests Follow up with Dr Camara or Morgan with Podiatry in 1-2 weeks. Clinic phone number is [phone] Follow up with Plastic Surgery in 2 weeks. Follow up with infectious disease 4-6 weeks. Follow-up Labs: Weekly CBC w diff, BMP, CRP. Please have labs faxed to ID clinic. Appointments on [place] and/or [facility] (with [facility] or [facility] provider or service). Call [phone] if you haven't heard regarding these appointments [...] anxiety, and tobacco abuse??admitted on 07/06/21 from [facility] for further care of R ankle osteomyelitis by Orthopedics, Plastics, and Infectious Disease.? 07/19: Per patient request: Increased Subutex dose to 8 mg 3 times daily, ICU RN dose. Schedule Robaxin 750 3 times daily. [...] epic for recommendations.. ??>Pain control: Currently controlled. -Continue??ICU RN??Suboxone 8mg tid ??; scheduled APAP 975mg TID, [...] allergenic polyurethane foam dressings (Mepitac tape, Sorbiview, [id number]) over occlusive adhesive semipermeable gauze dressings; WOC [...] improving.?? # Alcohol use disorder.?? HCV quant 485940??at OSH. ??AST 117, ALT 44, and AP [...] with periods of confusion early in admission. ??[place] to be??toxic vs metabolic??03/21 ?withdrawal, infection, sepsis. [...] minutes discharging this patient. Elizabeth Howell MD [facility] MED SURG ORTHOPEDIC [address] [place] [phone] Physical Exam Vital Signs: Temp: 98.6 ??F [...] performing Friday and Friday VAC changes Adult [facility] Follow-up and recommended labs and tests Follow up with Dr Camara or Morgan with Podiatry in 1-2 weeks. Clinic phone number is [phone] Follow up with Plastic Surgery in 2 weeks. Follow up with infectious disease 4-6 weeks. Follow-up Labs: Weekly CBC w diff, BMP, CRP. Please have labs faxed to ID clinic. Appointments on [place] and/or [facility] (with [facility] or [facility] provider or service). Call [phone] if you haven't heard regarding these appointments [...] MD Echo Complete Value LVEF 55-60% Narrative [id number]^BUTCH^JAIME [facility] [address] [place] [address] Name: DEANN KING : 1980 Study Date: 07/08/2021 12:07 PM Age: 40 yrs Gender: Female Patient Location: [facility] Reason For Study: Endocarditis Ordering Physician: JAIME [...] Qty: 90 tablet, Refills: 0 Comments: JAMES: [id number] Associated Diagnoses: Opioid use disorder, severe, in [...] Rae MD - 07/21/2021 12:29 PM CDT [facility] Hospitalist Discharge Summary Date of Admission: 07/06/2021 Date of Discharge: 07/21/2021 Discharging Provider: Jaime Rae MD Discharge Service: Hospitalist Service, [facility] TEAM 17 Discharge Diagnoses [...] Follow-ups Needed After Discharge Follow-up Appointments Adult [facility] Follow-up and recommended labs and tests Follow up with Dr Camara or Morgan with Podiatry in 1-2 weeks. Clinic phone number is [phone] Follow up with Plastic Surgery in 2 weeks. Follow up with infectious disease 4-6 weeks. Follow-up Labs: Weekly CBC w diff, BMP, CRP. Please have labs faxed to ID clinic. Appointments on [place] and/or [facility] (with [facility] or [facility] provider or service). Call [phone] if you haven't heard regarding these appointments [...] anxiety, and tobacco abuse??admitted on 07/06/21 from [facility] for further care of R ankle osteomyelitis by Orthopedics, Plastics, and Infectious Disease.? 07/19: Per patient request: Increased Subutex dose to 8 mg 3 times daily, ICU RN dose. Schedule Robaxin 750 3 times daily. [...] epic for recommendations.. ??>Pain control: Currently controlled. -Continue??ICU RN??Suboxone 8mg tid ??; scheduled APAP 975mg TID, [...] allergenic polyurethane foam dressings (Mepitac tape, Sorbiview, [id number]) over occlusive adhesive semipermeable gauze dressings; WOC [...] improving.?? # Alcohol use disorder.?? HCV quant 778256??at OSH. ??AST 117, ALT 44, and AP [...] with periods of confusion early in admission. ??[place] to be??toxic vs metabolic??2/2 ?withdrawal, infection, sepsis. [...] minutes discharging this patient. Jaime Rae MD [facility] MED SURG ORTHOPEDIC [address] [place] [phone] Physical Exam Vital Signs: Temp: 98.3 ??F [...] performing Friday and Friday VAC changes Adult [facility] Follow-up and recommended labs and tests Follow up with Dr Camara or Morgan with Podiatry in 1-2 weeks. Clinic phone number is [phone] Follow up with Plastic Surgery in 2 weeks. Follow up with infectious disease 4-6 weeks. Follow-up Labs: Weekly CBC w diff, BMP, CRP. Please have labs faxed to ID clinic. Appointments on [place] and/or [facility] (with [facility] or [facility] provider or service). Call [phone] if you haven't heard regarding these appointments [...] MD Echo Complete Value LVEF 55-60% Narrative [id number]^BUTCH^JAIME [facility],[place] [address] [place] [address] Name: DEANN KING : 1980 Study Date: 07/08/2021 12:07 PM Age: 40 yrs Gender: Female Patient Location: [facility] Reason For Study: Endocarditis Ordering Physician: JAIME [...] Qty: 90 tablet, Refills: 0 Comments: SIMRANBHARAT: [id number] Associated Diagnoses: Opioid use disorder, severe, in [...] with vac drape prior to applying sponge air route controller to assess integrity of dressing and ensure [...] were not included. [facility] Nurse Inpatient Assessment Today's Assessment: [...] with vac drape prior to applying sponge air route controller to assess integrity of dressing and ensure [...] and Nurse WOC Nurse follow-up plan:Friday/ Notify [facility] if wound(s) deteriorate. Nursing to notify the [...] 19 Lisa Chandler RN, CWOCN Dept. Pager: [phone] Dept. Office Number: [phone] Tiffanie Figueroa RN - 07/23/2021 10:17 AM CDT Care Management Discharge Note Discharge Date: 07/23/2021 Discharge Disposition: TCU PAS Confirmation Code: [id number] Education Provided on the Discharge Plan: yes Persons Notified of Discharge Plans: patient and mother, So. Patient/Family in Agreement with the Plan: yes Handoff Referral Completed: Yes Additional Information: Plan for patient to discharge to TCU at 4pm today pending staffing. RNCC available as needed. Update 1400: Patient will discharge to TCU at 1600. master control supervisor and bedside RN aware. Bedside RN toarrange transport at 1600. RNCC available as needed. Dr. Mckenzie with [facility] will prescribe Suboxone at discharge. Tiffanie Machado RN, BSN Lab Tech, 5 Ortho Pager Jaime Rae MD - 07/22/2021 8:58 AM CDT [facility] Medicine Progress Note - Hospitalist Service, ONUR TEAM 17 Date of Admission: 07/06/2021 Assessment & Plan 40 year old female??with past medical history significant for opioid use disorder,??alcohol use disorder,??HCV, hypothyroidism, depression, anxiety, and tobacco abuse??admitted on 07/06/21 from [facility] for further care of R ankle osteomyelitis by Orthopedics, Plastics, and Infectious Disease.? Today's changes: 07/22/2021 Overall doing better. No new concern/changes by me Aw TCU. See discharge summary 07/21 07/19:??Per patient request: Increased Subutex dose to 8 mg 3 times daily, ICU RN dose. ??Schedule Robaxin 750 3 times daily. [...] epic for recommendations.. ?>Pain control: Currently controlled. -Continue??ICU RN??Suboxone ??8mg tid ??; scheduled APAP 975mg TID, [...] allergenic polyurethane foam dressings (Mepitac tape, Sorbiview, [id number]) over occlusive adhesive semipermeable gauze dressings; WOC [...] improving.?? # Alcohol use disorder.?? HCV quant 328892??at OSH. ??AST 117, ALT 44, and AP [...] with periods of confusion early in admission. ??[place] to be??toxic vs metabolic??2/2 ?withdrawal, infection, sepsis. [...] care was discussed with the Bedside Nurse, Lab Tech/Day Worker and Patient. Jaime Rae MD Hospitalist Service, GOLD TEAM [address] [place] [address] Securely message with the [employer] Sales Console (learn more here) Text page via [...] Agreement with the Plan: yes Additional Information: [facility] is unable to accept patient today due to staffing. Admissions requested that patient bebrought over there tomorrow at 1100. Notified charge nurse. Updated patient and she verbalized understanding and agreement to plan. MICHAEL Mehta RNCC RN Lab Tech Office: [phone] Pager: [phone] LIOT Cali Bullock MD - 07/21/2021 12:17 [...] to route this note to the appropriate [facility] pools: [facility] INFECTIOUS DISEASE ADULT [facility]/ID Clinic Information: [address] [facility], Clinic [address] [place] [address] Cali Bullock MD on 07/21/2021 at 12:19 PM Cali Bullock MD - 07/21/2021 12:03 PM CDT Images from the original note were not included. 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 Negativesince then. Confirmed with lab [...] and worse about 2 weeks before admissionto [facility]. Also had periodic fever for 1-2 weeks - MRI right ankle wo contrast 06/29/21 - extensive tibiotalar erosions with large joint effusion and synovitis . - 06/30/21 ([facility]) - Right lateral ankle deep abscess I&D, [...] subcutaneous tissue without exposed bone. - 07/02/21 ([facility]) - Right lateral ankle I&D, right lateral calcaneus hardware removal and ankle wound vac exchange. With repeat debridement the wound extended down to the bone and the hardware. All 5 screws were removed and plate was removed. The peroneal tendon and calcaneous were exposed, The defect now measured 7x 4 cm with a depth of 2 cm. - 07/04/21 ([facility]) - Right lateral ankle I&D and wound vac replacement. - 07/07/21 ([facility]) - Right ankle I&D and wound vac [...] VL since then), whot was admitted to [facility] from 06/28/21 - 07/06/21 with sepsis [...] The patient was then transferred to the [facility] ([facility]) on 07/06/21 for further management due [...] oxacillin susceptible. Cali Bullock MD Infectious Diseases [phone] Interval events Patient overall feels okay. Tolerating [...] abuse. ?? The patient was admitted to [facility] from 06/28/04 - 07/06/21 with sepsis [...] the OR on 06/30/[address] [facility] and had a irrigation and debridement of right lateral ankle abscess and wound vac placement. The patient then returned to the OR on 07/02/21 for a repeat irrigation and debridement, lateralcalcaneus hardware removal, and wound vac exchanged. On 07/04/21, patient returned to OR for repeat I&D and wound vac exchange (see procedures below). The patient was then transferred to the [facility]) on 07/06/21 for further management due [...] I&D and wound vac replacement. - 07/07/21 ([facility]) - Right ankle I&D and wound vac [...] costs discussed: Not applicable PAS Confirmation Code: [id number] Patient/family educated on Medicare website which has current facility and service quality ratings: Yes, [facility] Education Provided on the Discharge Plan: yes Persons Notified of Discharge Plans: pt, ortho master control supervisor Adam, Dr Rae Patient/Family in Agreement with the Plan: yes Handoff Referral Completed: Yes Additional Information: JACKIE met with pt and reviewed discharge plan, including referral to Senior Link[facility] line for PAS/RR. Ptwas very groggy so may not recall conversation. JACKIE updated master control supervisor Adam and Dr. Rae with anticipated discharge to [facility] today @ 1:30. YADIRA Diamond MSW [facility] Friday Day Worker Text paging available through [employer] on [employer] search SOCIAL WORK COMMERCIAL CREDIT ANALYST PAGER [phone] Friday ONLY! COMMERCIAL CREDIT ANALYST COVERAGE AFTER 1600 Alyce Israel MSW - [...] and a bed become available. ADDENDUM 10:23: Supervising Librarian informed by Leslie Parikh, rehab care assistant that there may be a discharge from TCU this afternoon and could possibly accept pt for admissions at 1:30. She is requesting Rapid Covid Test. SW informed Ortho master control supervisor Cuate, who will request rapid COVID Test. SW completed PAS/RR on line: [id number]. Pt updated. YADIRA Diamond MSW [facility] Friday Day Worker Text paging available through [employer] on [facility] Intranet - search SOCIAL WORK COMMERCIAL CREDIT ANALYST PAGER [phone] Friday ONLY! COMMERCIAL CREDIT ANALYST COVERAGE AFTER 1600 Paulino Ybarra RN - [...] Rae MD - 07/20/2021 10:56 AM CDT [facility] Medicine Progress Note - Hospitalist Service, ONUR TEAM 17 Date of Admission: 07/06/2021 Assessment & Plan 40 year old female??with past medical history significant for opioid use disorder,??alcohol use disorder,??HCV, hypothyroidism, depression, anxiety, and tobacco abuse??admitted on 07/06/21 from [facility] for further care of R ankle osteomyelitis by Orthopedics, Plastics, and Infectious Disease.? Today's changes: 07/20/2021 Overall doing better. Rash, pruritus: improving. Pain controlled. No new concern/changes by me Aw tcu Ortho, ID, Dermatology, WOCN- following. 07/19: Per patient request: Increased Subutex dose to 8 mg 3 times daily, ICU RN dose. Schedule Robaxin 750 3 times daily. [...] vac. WOCN consult. ?? - Pain control: -Continue??ICU RN??Suboxone 8mg tid ??; scheduled APAP 975mg TID, [...] improving.?? # Alcohol use disorder.?? HCV quant 537677??at OSH. ??AST 117, ALT 44, and AP [...] with periods of confusion early in admission. ??[place] to be??toxic vs metabolic??2/2 ?withdrawal, infection, sepsis. [...] care was discussed with the Bedside Nurse, Lab Tech/Day Worker and Patient. Jaime Rae MD Hospitalist Service, [facility] TEAM [address] [place] [address] Securely message with the [employer] Sales Console (learn more here) Text page via [...] were not included. [facility] Nurse Inpatient Assessment Today's Assessment: [...] with vac drape prior to applying sponge air route controller to assess integrity of dressing and ensure [...] Emily Macias RN BSN CWN Dept. Pager: [phone] Dept. Office Number: [phone] Jaime Rae MD - 07/19/2021 12:42 PM CDT [facility] Medicine Progress Note - Hospitalist Service, ONUR TEAM 17 Date of Admission: 07/06/2021 Assessment & Plan 40 year old female??with past medical history significant for opioid use disorder,??alcohol use disorder,??HCV, hypothyroidism, depression, anxiety, and tobacco abuse??admitted on 07/06/21 from [facility] for further care of R ankle osteomyelitis by Orthopedics, Plastics, and Infectious Disease.? Today's changes: 07/19/2021 Overall doing better. Rash, pruritus: improving. Per patient request: Increased Subutex dose to 8 mg 3 times daily, ICU RN dose. Schedule Robaxin 750 3 times daily. [...] vac. WOCN consult. ?? - Pain control: -Continue??ICU RN??Suboxone 8mg tid ??; scheduled APAP 975mg TID, [...] improving.?? # Alcohol use disorder.?? HCV quant 175876??at OSH. ??AST 117, ALT 44, and AP [...] with periods of confusion early in admission. ??[place] to be??toxic vs metabolic??03/21 ?withdrawal, infection, sepsis. [...] care was discussed with the Bedside Nurse, Lab Tech/Day Worker and Patient. Jaime Rae MD Hospitalist Service, GOLD TEAM [address] [place] [address] Securely message with the [employer] Sales Console (learn more here) Text page via [employer] Paging/Directory Please see signed in provider for [...] continue to follow. Tiffanie Machado RN, BSN Lab Tech, 5 Ortho Pager Jah Thompson MD - [...] Rae MD - 07/18/2021 1:47 PM CDT [facility] Medicine Progress Note - Hospitalist Service, [facility] TEAM 17 Date of Admission: 07/06/2021 Assessment & Plan 40 year old female??with past medical history significant for opioid use disorder,??alcohol use disorder,??HCV, hypothyroidism, depression, anxiety, and tobacco abuse??admitted on 07/06/21 from [facility] for further care of R ankle osteomyelitis [...] vac. WOCN consult. ?? - Pain control: continue??ICU RN??Suboxone 4mg Q4H (was taking this way at [...] improving.?? # Alcohol use disorder.?? HCV quant 843038??at OSH. ??AST 117, ALT 44, and AP [...] with periods of confusion early in admission. ??[place] to be??toxic vs metabolic??2/2 ?withdrawal, infection, sepsis. [...] managed on??buprenorphine??since 2009. ??On buprenorphine 4mg QID ICU RN, increased to Q4H at OSH due to [...] care was discussed with the Bedside Nurse, Lab Tech/Day Worker and Patient. Jaime Rae MD Hospitalist Service, GOLD TEAM [address] [place] [address] Securely message with the [employer] Sales Console (learn more here) Text page via [employer] Paging/Directory Please see signed in provider for [...] were not included. [facility] Nurse Inpatient Assessment Today's Assessment: [...] control prior to re-starting VAC. Marilu Mar PROCTOLOGIST with Ortho will order 4% topical lidicaine [...] with vac drape prior to applying sponge air route controller to assess integrity of dressing and ensure [...] 19 Lisa Chandler RN, CWOCN Dept. Pager: [phone] Dept. Office Number: [phone] Cali Bullock MD - 07/18/2021 12:44 PM CDT Images from the original note were not included. 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 negativesince then. Confirmed with lab [...] and worse about 2 weeks before admissionto [facility]. Also had periodic fever for 1-2 weeks - MRI right ankle wo contrast 06/29/21 - extensive tibiotalar erosions with large joint effusion and synovitis . - 06/30/21 ([facility]) - Right lateral ankle deep abscess I&D, [...] subcutaneous tissue without exposed bone. - 07/02/21 ([facility]) - Right lateral ankle I&D, right lateral calcaneus hardware removal and ankle wound vac exchange. With repeat debridement the wound extended down to the bone and the hardware. All 5 screws were removed and plate was removed. The peroneal tendon and calcaneous were exposed, The defect now measured 7x 4 cm with a depth of 2 cm. - 07/04/21 ([facility]) - Right lateral ankle I&D and wound vac replacement. - 07/07/21 ([facility]) - Right ankle I&D and wound vac [...] VL since then), whot was admitted to [facility] from 06/28/21 - 07/06/21 with sepsis [...] The patient was then transferred to the [facility] ([facility]) on 07/06/21 for further management due [...] clinical course Cali Bullock MD Infectious Diseases [phone] Interval events Patient overall feels okay. Wound [...] abuse. ?? The patient was admitted to [facility] from 06/28/04 - 07/06/21 with sepsis [...] to the OR on 06/[facility] [facility] and had a irrigation and debridement of right lateral ankle abscess and wound vac placement. The patient then returned to the OR on 07/02/21 for a repeat irrigation and debridement, lateralcalcaneus hardware removal, and wound vac exchanged. On 07/04/21, patient returned to OR for repeat I&D and wound vac exchange (see procedures below). The patient was then transferred to the [facility] ([facility]) on 07/06/21 for further management due [...] I&D and wound vac replacement. - [place]07/[place] - Right ankle I&D and wound vac [...] Camara. Future Appointments Date Time Provider Department [place] 07/07/2021 7:00 PM UR OT WAITLIST [facility] [place] 07/08/2021 8:00 AM Li Carmencita R Pt, PT [facility] [place] ?? Carlos A Thompson MD Orthopaedic Surgery, [...] place for 6 weeks IV antibiotics. This justowriter operator noticed a redness around the PICC site and the dressing dislodged by patient. This justowriter operator notified the bedside RN. Pulmonologist/Intensivist made recommendations. See note. [facility] RN also assessed and redressed PICC site. Spoke with patient's mother, So, who agreed with the plan of patient going to TCU. So is caring for patient's three children while she is in the hospital. This justowriter operator will continue to follow up on TCU referrals. Tiffanie Machado RN, BSN Lab Tech, 5 Ortho Pager Alma Oswald MD - 07/17/2021 2:45 PM CDT Images from the original note were not included. [facility] Inpatient Teledermatology Store and Forward Progress Note [...] allergenic polyurethane foam dressings (Mepitac tape, Sorbiview, [id number]) over occlusive adhesive semipermeable gauze dressings; WOC [...] Oncol Nurs. 2012 May;16(2):E48-55. doi: 10.1188/12.CJON.E48-E55. PMID: [id number]. Thank you for this teledermatology consultation. Please do not hesitate to contact with any additional questions or concerns. Attending physician: Dr. Kathryn Oswald MD Dermatology Resident [facility] Relevant History: Based on chart review and direct communication with consulting team 40 year old female??with past medical history significant for opioid use disorder,??alcohol use disorder,??HCV, hypothyroidism, depression, anxiety, and tobacco abuse??admitted on 07/06/21 from [facility] for further care of R ankle osteomyelitis [...] patient in-person. Brice Peralta MD Pronouns: he/him/his Patient Safety Officer Department of Dermatology [facility]: , [facility]: Lona Zhao RN - 07/17/2021 1:47 PM CDT Images from the original note were not included. Bedside RN paged VAS for assessing patient's left arm PICC due to skin issues. This justowriter operator discovered that the skin was irritated and [...] Rae MD - 07/17/2021 1:10 PM CDT [facility] Medicine Progress Note - Hospitalist Service, ONUR TEAM 17 Date of Admission: 07/06/2021 Assessment & Plan 40 year old female??with past medical history significant for opioid use disorder,??alcohol use disorder,??HCV, hypothyroidism, depression, anxiety, and tobacco abuse??admitted on 07/06/21 from [facility] for further care of R ankle osteomyelitis [...] vac. WOCN consult. ?? - Pain control: continue??ICU RN??Suboxone 4mg Q4H (was taking this way at [...] improving.?? # Alcohol use disorder.?? HCV quant 614179??at OSH. ??AST 117, ALT 44, and AP [...] with periods of confusion early in admission. ??[place] to be??toxic vs metabolic??2/2 ?withdrawal, infection, sepsis. [...] managed on??buprenorphine??since 2009. ??On buprenorphine 4mg QID ICU RN, increased to Q4H at OSH due to [...] PRESENT PICC Single Lumen Left-Site Assessment: WDL except;[place];Tender Cardiac Monitoring: None Code Status: Full Code Disposition Plan Expected Discharge: 07/18/2021 Likely TCU. Anticipated discharge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 Plan: [facility] at 1100 AM today 07/23/21 per [...] Equipment: IV pole/pump, and pt belongings. Plan: [facility] when a bed is available. Additional [...] - 07/19/2021 7:27 AM CDT Status Note [id number] Patient A&Ox4, able to make needs known, [...] reach. Pharmacy-Vancomycin Dosing Service - Iker Caldwell [facility] - 07/15/2021 7:40 AM CDT [...] 07/13/21 passing gas. Activity: Independent up to [facility] pivoting. Up for meals? Sitting up in [...] Note to Pharmacy: For [facility], [facility] and [facility]: For Zosyn-naive patients, use the [...] verbal consent to Sintia Swain RN for [facility] staff to speak with mother So Parker [...] Info: Pharmacy-Vancomycin Dosing Service - Lurdes Sierra [facility] - 07/11/2021 10:11 AM CDT [...] but the predicted AUC was 459 @64%. 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 She underwent 3 I&D's at [facility] prior to her transfer. Patient was transferred [...] 07/07/2021 7:00 PM UR OT WAITLIST [facility] [place] 07/08/2021 8:00 AM Carmencita Li Pt, PT [facility] [place] Nathaniel Tinoco MD Orthopaedic Surgery, PGY-4 Plan [...] Will continueto monitor. Pharmacy-Admission Medication History - Carmen Suze Sauceda, [facility] - 07/06/2021 7:22 PM CDT Admission Medication History Completed by Pharmacy See [facility] Admission Navigator for allergy information, preferred outpatient pharmacy, prior to admission medications and immunization status. Medication History Sources: ??? Pharmacy fill history via [employer] ??? Current medication list from [facility] (pt admitted 06/28-07/06) ??? ORIENTAL RUG REPAIRER Changes made to ICU RN medication list (reason): ??? Added: spironolactone, famotidine, lactulose, magnesium oxide, potassium chloride, senna (per [facility] records, these were started while pt in the hospital, doesn't appear she was on these banquet captain) ??? Deleted: coenzyme-Q, ibuprofen, multivitamin, omeprazole, ondansetron, Miralax, thiamine, vitamin B complex (old Rx, no fill history) ??? Changed: o Gabapentin 100-200 mg bid + 300 mg hs --> 300 mg hs (per [facility] records, has not filled gabapentin banquet captain since 08/16/20) o Venlafaxine XR 150 mg daily --> 300 mg daily (per fill history, [facility] records) Additional Information: ??? Last prescribed dose of buprenorphine was 8 mg SL tid, however per addiction medicine visit notes pt was taking medication differently to make prescription last and using family member's supply at times. At [facility] she was receiving 4 mg SL every 4 hours. Per [place] ORIENTAL RUG REPAIRER: Buprenorphine 8 mg SL tablet filled 05/04/21, [...] Mckenzie naloxone (NARCAN) 4 MG/0.1ML nasal spray [place] 1 spray (4 mg) into one nostril alternating nostrils once as needed for opioid reversal every 2-3 minutes until assistance arrives Juanis Mckenzie nicotine polacrilex (NICORETTE) [address] 1 each (4 mg) inside cheek every hour as needed for smoking cessation Patient not taking: Reported on 02/28/2021 Reymundo Sifuentes MD Date completed: 07/06/21 Medication history completed by: Suze Morales [facility] Plan of Care - Leydi [...] LDA: L side chest PICC. Placed at [facility]. Plan: Continue with care Additional Info: Plan [...] Visit Wound Care Luis Camara, [address] [place] [address] (Wo rk) 01/21/2022 PRE VISIT Gastroenterology Landon Warren, *-*HEATHER Barriga RECORDS*-* MD Luis Fernando [address] [place] [phone] (Wo rk) 01/21/2022 Office Visit Gastroenterology Juanis Mckenzie [address] [place] [phone] Luis Fernando Miles MD [address] [place] [address] [phone] documented as of this encounter Procedures Procedure [...] (ABNORMAL) CRP inflammation (07/23/2021 7:42 AM CDT) [facility] [employer] Method Time Signature CRP Inflammation 8.2 [...] City/State/ZIP Code Phon [place] [address] Care Lab [address] [facility], Room [address]309 (ABNORMAL) CBC with platelets and differential (07/21/2021 3:12 PM CDT) [employer] Method Time Signature WBC Count 4.4 4.0 [...] LABORATORY [facility] [place] [address] Care Lab [address] [facility], Room M309 Asymptomatic COVID-19 Virus (Coronavirus) [...] exposure or clinical presentation sugges ts COVID-19. ??[facility] are certified under the Clinical Laborat ory Improvement Amendments of 1988 (CLIA-88) as qualified to perform moderate and/or high complexity laboratory testing. Jaime Rae MD LAB - MICRO GENERAL ORDERABL ES Performing Organization Address City/[facility] Code Phon [place] [phone] Care [address] [place] [address], Room M309 (ABNORMAL) CRP inflammation (07/19/2021 8:19 AM CDT) [facility] Method Time Signature CRP Inflammation 15.0 (H) 0.0 - 8.0 07/19/2021 UR LABORATOR Y mg/L 9:11 AM CDT Specimen Anatomical Collection Method / Collection Time Recei isak Time (Source) Location / Volume Laterality Blood STRUCTURE OF RIGHT Venipuncture / 07/19/2021 8:19 06/0 03/2021 8:28 HAND / Unknown Unknown AM CDT AM CDT Jaime Rae MD LAB - BLOOD ORDERABLES Performing Organization Address [facility] Phon [place] [phone] Care [address] [place] [address], Room M309 (ABNORMAL) CBC with platelets (07/19/2021 8:19 AM CDT) [facility] Method Time Signature WBC Count 4.9 [...] City/State/ZIP Code Phon [place] [address] Care [address] [place] [address], Room M309 Extra Purple Top Tube (07/18/2021 [...] City/State/ZIP Code Ph[place] [address] Care Lab [address] [place] [address], Room M309 (ABNORMAL) CRP inflammation (07/18/2021 7:37 [...] City/State/ZIP Code Ph[place] [address] Care Lab [address] [facility], Room M309 XR Chest 1 View (07/17/2021 [...] (07/17/2021 11:14 AM CDT) Analysis Performed At [facility] Time Signature SARS CoV2 PCR Negative [...] exposure or clinical presentation sugges ts COVID-19. ??[facility] are certified under the Clinical Laborat ory Improvement Amendments of 1988 (CLIA-88) as qualified to perform moderate and/or high complexity laboratory testing. Jaime Rae MD LAB - MICRO GENERAL ORDERABL ES Performing Organization Address City/State/ZIP Code Phon [place] [address] Care Lab [address] [facility], Room M309 (ABNORMAL) CBC with platelets and differential (07/17/2021 7:36 AM CDT) [facility] [...] LABORATORY [facility] [place] [address] Care Lab [address] [facility], Room M309 (ABNORMAL) Comprehensive metabolic panel (07/17/2021 7:36 AM CDT) [facility] Method Time Signature Sodium 139 133 [...] es age and gender (Paul et al., [facility], DOI: 10.1056/WXDUfw7302916) Specimen Anatomical Collection Method / Collection Time Recei isak Time (Source) Location / Volume Laterality Blood STRUCTURE OF RIGHT Venipuncture / 07/17/2021 7:36 05/3 02/2021 8:08 HAND / Unknown Unknown AM CDT AM CDT Jensen Ulloa MD LAB - BLOOD ORDERABLES Performing Organization Address City/State/ZIP Code Ph[place] [address] Care Lab [address] [place] [address], Room M309 (ABNORMAL) CRP inflammation (07/16/2021 9:08 [...] City/State/ZIP Code Ph[place] [address] Care Lab [address] [place] [address], Room M309 Creatinine (07/16/2021 8:23 AM CDT) P athologist Signature Creatinine 0.66 0.52 - 1.04 07/16/2021 UR LABORATORY mg/dL 9:01 AM CDT GFR Estimate >90 >60 07/16/2021 UR LABORATORY mL/min/1.73 9:01 AM CDT m2 Comment: Effective February 06, 2021 eGF Rcr in adults is calculated using the 2020 CKD-EPI creatinine equation which includ es age and gender (Paul et al., NEJM, DOI: 10.1056/AVLEsx3547991) Specimen Anatomical Collection Method / Collection Time Recei isak Time (Source) Location / Volume Laterality Blood STRUCTURE OF RIGHT Venipuncture / 07/16/2021 8:23 05/3 8:31 HAND / Unknown Unknown AM CDT AM CDT Jaime Rae MD LAB - BLOOD ORDERABLES Performing Organization Address City/State/[facility] Phon [place] [address] Care Lab [address] [place] [address], Room M309 Extra Purple Top Tube (07/15/2021 [...] Performing Organization Address City/[facility] Phon [place] [address] Care Lab [address] [place] [address], Room M309 Creatinine (07/15/2021 6:09 AM CDT) P athologist Signature Creatinine 0.64 0.52 - 1.04 07/15/2021 UR LABORATORY mg/dL 7:06 AM CDT GFR Estimate >90 >60 07/15/2021 UR LABORATORY mL/min/1.73 7:06 AM CDT m2 Comment: Effective February 06, 2021 eGF Rcr in adults is calculated using the 2020 CKD-EPI creatinine equation which includ es age and gender (Paul solis al., NEJM, DOI: 10.1056/KPMUri2159236) Specimen Anatomical Collection Method / Collection Time Recei isak Time (Source) Location / Volume Laterality Blood STRUCTURE OF LEFT Venipuncture / 07/15/2021 6:09 07/15 6:14 HAND / Unknown Unknown AM CDT AM CDT Jaime Rae MD LAB - BLOOD ORDERABLES Performing Organization Address City/State/ZIP Code Phon [place] [address] Care Lab [address] [place] [address], Room M309 Vancomycin level (07/15/2021 6:09 AM [...] Performing Organization Address City/[facility] Code Phon [place] [address] Care [address] [place] [address], Room M309 Creatinine (07/14/2021 5:30 AM CDT) P athologist Signature Creatinine 0.62 0.52 - 1.04 07/14/2021 UR LABORATORY mg/dL 6:20 AM CDT GFR Estimate >90 >60 07/14/2021 UR LABORATORY mL/min/1.73 6:20 AM CDT m2 Comment: Effective February 06, 2021 eGF Rcr in adults is calculated using the 2020 CKD-EPI creatinine equation which includ es age and gender (Paul et al., NEJM, DOI: 10.1056/LYEUtb6869520) Specimen Anatomical Collection Method / Collection Time Recei isak Time (Source) Location / Volume Laterality Blood STRUCTURE OF RIGHT Venipuncture / 07/14/2021 5:30 05/2 09/2021 5:52 UPPER LIMB / Unknown AM CDT AM CDT Unknown Jaime Rae MD LAB - BLOOD ORDERABLES Performing Organization Address City/State/ZIP Code Ph[place] [address] Care Lab [address] [facility], Room M309 (ABNORMAL) CBC with platelets (07/14/2021 5:30 AM CDT) [facility] Method Time Signature WBC Count 4.9 [...] STRUCTURE OF RIGHT Venipuncture / 07/14/2021 5:30 /2 09/2021 5:52 UPPER LIMB / Unknown AM CDT AM CDT Unknown Jah Thompson MD LAB - BLOOD ORDERABLES Performing Organization Address City/State/ZIP Code Ph[place] [address] Care Lab [address] [facility], Room M309 (ABNORMAL) CRP inflammation (07/14/2021 5:30 AM CDT) [facility] Method Time Signature CRP Inflammation 40.0 (H) 0.0 - 8.0 07/14/2021 UR LABORATOR Y mg/L 6:22 AM CDT Specimen Anatomical Collection Method / Collection Time Recei isak Time (Source) Location / Volume Laterality Blood STRUCTURE OF RIGHT Venipuncture / 07/14/2021 5:30 06/18 5:52 UPPER LIMB / Unknown AM CDT AM CDT Unknown Jah Thompson MD LAB - BLOOD ORDERABLES Performing Organization Address City/State/ZIP Code Phon e Number UR LABORATORY [facility] [place] [address] Care Lab [address] [facility], Room M309 XR Chest 1 View [...] platelets and differential (07/13/2021 5:40 AM CDT) [facility] Method Time Signature WBC Count 4.9 [...] UR LABORATORY [facility] [place] [address] Care Lab [address] [facility], Room M309 (ABNORMAL) Comprehensive metabolic panel (07/13/2021 5:40 AM CDT) [facility] gist Method Time Signature Sodium 139 [...] and gender (Paul et al., NE, DOI: 10.1056/[id number]) Specimen Anatomical Collection Method / Collection Time Recei isak Time (Source) Location / Volume Laterality Blood STRUCTURE OF RIGHT Venipuncture / 07/13/2021 5:40 05/2 08/2021 5:55 HAND / Unknown Unknown AM CDT AM CDT Jensen Ulloa MD LAB - BLOOD ORDERABLES Performing Organization Address City/State/ZIP Code Phon [place] [address] Care Lab [address] [place] [address], Room M309 Vancomycin level (07/13/2021 5:40 AM [...] City/State/ZIP Code [place] [address] Care Lab [address] [facility], Room M309 Blood Culture Line, venous (07/12/2021 [...] IDD LABORATORY [facility] [place] [address] Diag. Lab [address] [facility], [address] Blood Culture Arm, Right (07/12/2021 [...] MICRO GENERAL ORDERABL ES Performing Organization Address City/State/[facility] Code Phon e Number UU IDD LABORATORY [facility] [place] [address] Diag. Lab [address] [facility], Room D297 (ABNORMAL) CRP inflammation (07/12/2021 6:57 [...] City/State/ZIP Code Phon [place] [phone] Care Lab [address] [place] [address], Room M309 (ABNORMAL) CBC with platelets (07/12/2021 6:57 AM CDT) [facility] Method Time Signature WBC Count 6.6 [...] City/State/ZIP Code Phon [place] [phone] [address] [place] [address], Room M309 Creatinine (07/12/2021 6:57 AM CDT) athologist Signature Creatinine 0.57 0.52 - 1.04 07/12/2021 UR LABORATORY mg/dL 7:35 AM CDT GFR Estimate >90 >60 07/12/2021 UR LABORATORY mL/min/1.73 7:35 AM CDT m2 Comment: Effective February 06, 2021 eGF Rcr in adults is calculated using the 2020 CKD-EPI creatinine equation which includ es age and gender (Paul et al., NE, DOI: 10.1056/[id number]) Specimen Anatomical Collection Method / Collection Time Recei isak Time (Source) Location / Volume Laterality Blood STRUCTURE OF RIGHT Venipuncture / 07/12/2021 6:57 05/2 07/2021 7:04 UPPER LIMB / Unknown AM CDT AM CDT Unknown Jaime Rae MD LAB - BLOOD ORDERABLES Performing Organization Address City/State/ZIP Code Phon e Number UR LABORATORY [facility] [place] [address] Care Lab [address] [facility], Room [address]309 Fungal or Yeast Culture [...] IDD LABORATORY [facility] [place] [address] Diag. Lab [address] [facility], [address] Wound Aerobic Bacterial Culture Routine [...] MICRO GENERAL ORDER JEFFERY Performing Organization Address City/[facility] Phon e Number UU IDD LABORATORY [facility] [place] [address] Diag. Lab [address] [facility], Room D297 (ABNORMAL) Anaerobic Bacterial Culture Routine (07/11/2021 6:18 PM CDT) [facility] gist Method Time Signature Culture No [...] MICRO GENERAL ORDER JEFFERY Performing Organization Address City/[facility] Code Phon e Number UU IDD LABORATORY [facility] [place] [address] Diag. Lab [address] [facility], Room [address] Extra Purple Top Tube (07/11/2021 [...] Performing Organization Address City/[facility]/ZIP Code Phon [place] [address] Care [address] [place] [address], Room M309 Creatinine (07/11/2021 9:09 AM CDT) P athologist Signature Creatinine 0.58 0.52 - 1.04 07/11/2021 UR LABORATORY mg/dL 9:35 AM CDT GFR Estimate >90 >60 07/11/2021 UR LABORATORY mL/min/1.73 9:35 AM CDT m2 Comment: Effective February 06, 2021 eGF Rcr in adults is calculated using the 2020 CKD-EPI creatinine equation which includ es age and gender (Paul et al., NEJ, DOI: 10.1056/[id number]) Specimen Anatomical Collection Method / Collection Time Recei isak Time (Source) Location / Volume Laterality Blood STRUCTURE OF RIGHT Venipuncture / 07/11/2021 9:09 05/2 06/2021 9:16 UPPER LIMB / Unknown AM CDT AM CDT Unknown Jaime Rae MD LAB - BLOOD ORDERABLES Performing Organization Address City/[facility]/ZIP Code Phon [place] [address] Care Lab [address] [place] [address], Room M309 (ABNORMAL) CBC with platelets and [...] City/State/ZIP Code Phon [place] [phone] Care Lab [address] [place] [address], Room M309 (ABNORMAL) CRP inflammation (07/10/2021 7:26 AM CDT) [facility] Method Time Signature CRP Inflammation 59.0 [...] Performing Organization Address City/[facility] Phon [place] [phone] Care Lab [address] [place] [address], Room M309 (ABNORMAL) CRP inflammation (07/10/2021 5:25 AM CDT) [facility] Method Time Signature CRP Inflammation 60.0 [...] Performing Organization Address City/[facility] Phon [place] [phone] [place] [address], Room M309 (ABNORMAL) CBC with platelets (07/10/2021 5:25 AM CDT) [facility] Method Time Signature WBC Count 8.2 [...] City/State/ZIP Code Phon [place] [address] Care Lab [address] [facility], Room M309 (ABNORMAL) UA with Microscopic reflex to Culture (07/09/2021 5:33 PM CDT) [facility] Hospital Method Time Signature Color Urine Yellow Colorless, 07/09/2021 UR LABORATORY Straw, 7:00 PM CDT Light Yellow, Yellow Appearance Urine Clear Clear 07/09/2021 UR LABORATOR Y 7:00 PM CDT Glucose Urine Negative Negative 07/09/2021 UR LABORATORY mg/dL 7:00 PM CDT Bilirubin Urine Negative Negative 07/09/2021 UR LABORATORY 7:00 PM CDT Ketones Urine Negative Negative 07/09/2021 UR LABORATORY mg/dL 7:00 PM CDT Specific Bertha 1.018 1.003 - 07/09/2021 UR LABORATOR Y [...] City/State/ZIP Code Phon [place] [phone] Care Lab [address] [facility], Room M309 Blood Culture Arm, Right [...] IDD LABORATORY [facility] [place] [address] Diag. Lab [address] [facility], Room D297 Blood Culture Arm, Left (07/09/2021 [...] IDD LABORATORY [facility] [place] [address] Diag. Lab [address] [facility], Room D297 (ABNORMAL) CRP inflammation (07/09/2021 12:22 PM CDT) [facility] Method Time Signature CRP Inflammation 43.0 (H) [...] Number UR LABORATORY [facility] [place] [address] Care Lab [address] [facility], Room M309 ALT (07/09/2021 12:22 PM [...] UR LABORATORY [facility] [place] [address] Care Lab [address] [facility], Room M309 (ABNORMAL) Basic metabolic panel [...] and gender (Paul et al., NEJ, DOI: [id number]) Specimen Anatomical Collection Method Collection Time Receive d Time (Source) Location / / Volume Laterality Blood STRUCTURE OF LEFT VAD(CVC, PICC) / 07/09/2021 12:22 UPPER LIMB / Unknown PM CDT 12:30 PM CDT Unknown Jaime Rae MD LAB - BLOOD ORDERABLES Performing Organization Address City/State/ZIP Code Phon e Number UR LABORATORY [place] [phone] [place] [address], Room M309 (ABNORMAL) CBC with platelets (07/09/2021 12:22 PM CDT) [facility] gist Method Time Signature WBC Count 9.3 [...] PM CDT 12:30 PM CDT Unknown Jaime aRe MD LAB - BLOOD ORDERABLES Performing Organization Address City/State/ZIP Code Phon e Number UR LABORATORY [facility] [place] [phone] Care [address] [place] [address], Room M309 ECHO COMPLETE (07/08/2021 1:04 PM CDT) P athologist Signature LVEF 55-60% CARDIOLOGY RESULTS Anatomical Region Laterality Modality Echocardiography Specimen (Source) Anatomical Collection Method Collection Time Re ceived Time Location / / Volume Laterality 07/08/2021 12:07 PM CDT Narrative 07/08/2021 2:15 PM CDT [id number]^BUTCH^JAIME [facility] Echocardiography Laboratory [address] [place] [address] Name: DEANN KING : 1980 Study Date: 07/08/2021 12:07 PM Age: 40 yrs Gender: Female Patient Location: [facility] Reason For Study: Endocarditis Ordering Physician: JAIME [...] Procedure Note Matheus Jo MD - 07/08/2021 [id number]^BUTCH^JAIME [facility] Echocardiography Laboratory [address] [place] [id number] Name: DEANN KING : 1980 Study Date: 07/08/2021 12:07 PM Age: 40 yrs Gender: Female Patient Location: [facility] Reason For Study: Endocarditis Ordering Physician: JAIME [...] CBC with platelets (07/08/2021 7:14 AM CDT) [facility] gist [...] City/State/ZIP Code Phon [place] [address] Care Lab [address] [place] [address], Room M309 (ABNORMAL) Erythrocyte sedimentation rate auto [...] City/State/ZIP Code Phon [place] [address] Care Lab [address] [place] [address], Room M309 (ABNORMAL) CRP inflammation (07/08/2021 7:14 AM CDT) Patholo [employer] Method Time Signature CRP Inflammation 57.0 (H) [...] City/State/ZIP Code Phon [place] [address] Care Lab [address] [place] [address], Room M309 US Abdomen Complete (07/07/2021 3:33 [...] IDD LABORATORY [facility] [place] [address] Diag. Lab [address] [facility], Room D297 Blood Culture Line, venous (07/07/2021 [...] MICRO GENERAL ORDERABL ES Performing Organization Address City/[facility]/ZIP Code Phon e Number UU IDD LABORATORY [facility] [place] [address] Diag. Lab [address] [facility], Room D297 (ABNORMAL) Phosphorus (07/07/2021 12:35 PM [...] LABORATORY [facility] [place] [address] Care Lab [address] [facility], Room M309 Magnesium (07/07/2021 12:35 PM [...] LAB - BLOOD ORDERABLES Performing Organization Address City/State/[facility] Code Phon e [place] [phone] [place] [address], Room M309 (ABNORMAL) CBC with platelets (07/07/2021 12:35 PM CDT) [facility] gist Method Time Signature WBC Count 8.6 [...] Performing Organization Address City/[facility] Phon e [place] [phone] Care Lab [address], Room M309 (ABNORMAL) Comprehensive metabolic panel (07/07/2021 12:35 PM CDT) [facility] Method Time Signature Sodium 137 133 [...] and gender (Paul et al., NEJM, DOI: [id number]) Specimen Anatomical Collection Method Collection Time Receive d Time (Source) Location / / Volume Laterality Blood VENOUS LINE / VAD(CVC, PICC) / 07/07/2021 12:35 2021 1:01 Unknown Unknown PM CDT PM CDT Nathaniel Tinoco MD LAB - BLOOD ORDERABLES Performing Organization Address City/State/ZIP Code Phon e Number UR LABORATORY [facility] [place] [address] Care Lab [address] [facility], Room M309 (ABNORMAL) Tissue Aerobic Bacterial Culture Routine (07/07/2021 8:43 AM CDT) [facility] gist Method Time Signature Culture 1+ Staphylococcus GINETTE [...] Susceptibility testing requested by Dr. Fraga Pager [phone]. This specimen was received on a swab. [...] IDD LABORATORY [facility] [place] [address] Diag. Lab [address] [facility], Room D297 Anaerobic Bacterial Culture Routine (07/07/2021 [...] MICRO GENERAL ORDER JEFFERY Performing Organization Address City/[facility] Phon e Number UU IDD LABORATORY [facility] [place] [address] Diag. Lab [address] [facility], Room D297 Tissue Aerobic Bacterial Culture Routine [...] MICRO GENERAL ORDER JEFFERY Performing Organization Address City/[facility]/ZIP Code Phon e Number UU IDD LABORATORY [facility] [place] [address] Diag. Lab [address] [facility], Room D297 Anaerobic Bacterial Culture Routine (07/07/2021 8:42 AM CDT) [facility] Method Time Signature Culture No anaerobic [...] MICRO GENERAL ORDER JEFFERY Performing Organization Address City/[facility] Phon e Number UU IDD LABORATORY [facility] [place] [address] Diag. Lab [address] [facility], Room D297 Wound Aerobic Bacterial Culture Routine [...] MICRO GENERAL ORDER JEFFERY Performing Organization Address City/[facility]/ZIP Code Phon e Number UU IDD LABORATORY [facility] [place] [address] Diag. Lab [address] [facility], Room D297 Anaerobic Bacterial Culture Routine (07/07/2021 [...] IDD LABORATORY [facility] [place] [address] Diag. Lab [address] [facility], Room D297 Asymptomatic COVID-19 Virus (Coronavirus) by [...] or clinical presentation sugges ts COVID-19. ??M [facility] are certified under the Clinical Laborat ory Improvement Amendments of 1988 (CLIA-88) as qualified to perform moderate and/or high complexity laboratory testing. Ernesto Martínez MD LAB - MICRO GENERAL ORDERABL ES Performing Organization Address City/State/ZIP Code Phon e Number UR LABORATORY [facility] [place] [address] Care Lab [address] [facility], Room M309 Blood Culture Arm, Left [...] IDD LABORATORY [facility] [place] [address] Diag. Lab [address] [facility], Room D297 (ABNORMAL) Iron and iron binding [...] PM CDT PM CDT Unknown Rossana Odell [facility] LAB - BLOOD ORDERABLES Performing Organization Address City/State/ZIP Code Phon e Number UR LABORATORY [facility] [place] [phone] Care Lab [address] [facility], Room M309 (ABNORMAL) Hepatitis C RNA, Quantitative by PCR (07/06/2021 3:34 PM CDT) [facility] Method Time Signature Hepatitis C RNA [...] Performing Organization Address City/[facility]/ZIP Code Phon e Number UU IDD LABORATORY [facility] [place] [address] Diag. Lab [address] [facility], Room D297 Adult Type and Screen (07/06/2021 3:34 PM CDT) [facility] Method Time Signature ABO/RH(D) B POS 07/06/2021 UR BLOOD 2:15 PM CDT BANK Antibody Negative Negative 07/06/2021 UR BLOOD Screen 2:15 PM CDT BANK SPECIMEN [id number] 07/06/2021 UR BLOOD EXPIRATION 2:15 PM CDT BANK DATE Specimen Anatomical Collection Method / Collection Time Recei isak Time (Source) Location / Volume Laterality Blood STRUCTURE OF RIGHT Venipuncture / 07/06/2021 3:34 05/2 4:06 UPPER LIMB / Unknown PM CDT PM CDT Unknown Jah Thompson MD LAB - BLOOD BANK TEST ORDER Performing Organization Address City/[facility]/ZIP Code Phon e Number UR BLOOD BANK [facility] [place] [phone] Components Lab [address] [facility], Room M301 (ABNORMAL) Hepatic panel (07/06/2021 3:34 PM CDT) [facility] gist Method Time Signature Bilirubin Total 1.3 [...] City/State/ZIP Code Phon e Number UR LABORATORY [facility] [place] [phone] Care Lab [address] [facility], Room M309 Blood Culture Arm, Right (07/06/2021 3:34 PM CDT) athologist Signature Culture No Growth [...] IDD LABORATORY [facility] [place] [address] Diag. Lab [address] [facility], Room D297 Partial thromboplastin time (07/06/2021 3:34 [...] Performing Organization Address City/[facility]/ZIP Code Phon [place] [address] Care Lab [address] [facility], Room M309 (ABNORMAL) INR (07/06/2021 3:34 PM CDT) athologist Signature INR 1.39 (H) 0.85 - 1.15 07/06/2021 UR LABORATORY 4:23 PM CDT Comment: Some International Normalized R atio (INR) results performed at the [facility] Acute Care Lab for patients 6 [...] Performing Organization Address City/[facility]/ZIP Code Phon [place] [address] Care Lab [address] [place] [address], Room M309 (ABNORMAL) Erythrocyte sedimentation rate auto (07/06/2021 3:34 PM CDT) Patholo gist Method Time Signature Erythrocyte 97 (H) [...] Performing Organization Address City/[facility]/ZIP Code Phon e [place] [phone] Care [address] [place] [address], Room M309 (ABNORMAL) CRP inflammation (07/06/2021 3:34 PM CDT) Patholo gist Method Time Signature CRP Inflammation 65.0 [...] City/State/ZIP Code Phon e [place] [address] Care Lab [address] [place] [address], Room M309 (ABNORMAL) Basic metabolic panel (07/06/2021 3:34 PM CDT) [facility] [employer] Method Time Signature Sodium 136 133 [...] and gender (Paul et al., NEJM, DOI: [id number]) Specimen Anatomical Collection Method / Collection Time Recei isak Time (Source) Location / Volume Laterality Blood STRUCTURE OF RIGHT Venipuncture / 07/06/2021 3:34 05/2 4:06 UPPER LIMB / Unknown PM CDT PM CDT Unknown Jah Thompson MD LAB - BLOOD ORDERABLES Performing Organization Address City/State/ZIP Code Phon e Number UR LABORATORY [facility] [place] [phone] Care Lab [address] [facility], Room M309 (ABNORMAL) CBC with platelets (07/06/2021 3:34 PM CDT) [facility] [employer] Method Time Signature WBC Count 5.7 4.0 [...] City/State/ZIP Code Phon [place] [address] Care Lab [address] [facility], Room M309 documented in this encounter [...] AM CDT 2 g 200 mL/hr New 07/22/2021 3:53 PM CDT 2 g 200 [...] PRN, moderate to severe pain, Starting on Fri07/07/21 at 0909, Administer fentaNYL (SUBLIMAZE) for acute [...] dose (after last modification) on Fri07/18/21 at 1999 Given 07/21/2021 8:01 PM CDT 180 mg [...] DAILY, First dose (after last modification) on 07/14/22 at 1400 Given 07/14/2021 8:10 PM CDT [...] other, anxiety, itching, adjuvant pain, Starting on 07/17/21 at 1531 Given 07/22/2021 1:00 PM CDT [...] or analgesic side effects. Hold while on DENTAL MECHANIC or with regular IV opioid dosing. Given [...] or analgesic side effects. Hold while on DENTAL MECHANIC or with regular IV opioid dosing. Given [...] or analgesic side effects. Hold while on DENTAL MECHANIC or with regular IV opioid dosing. Given [...] Intravenous, EVERY 2 HOURS, First dose on [place] 07/22/21 at 1030, For 2 doses, For [...] 162 mg, Oral, DAILY, First dose on [place] 07/08/21 at 0800, DO NOT C DANIELS. buprenorphine (SUBUTEX) sublingual tablet 8 mg 0447 (G iven - Provider: Paulino Ybarra, GENARO - Comment: wanted to take now vs 6am because she woke up for pain meds and wants to go back to sleep after)0600 (Canceled Entry - Provider: Paulino Ybarra RN)1316 (Given - Provider: Vin Sims RN) 0611 (Given - Provider: Alisa Ceja, GENARO)1420 (Given - Provider: Areli Schwartz RN)2241 (Given - Provider: Yani Preciado RN) 0647 (Given - Provider: Alisa Ceja, GENARO) 1401 (Given - Provider: Andrzej Hodge, GENARO) 8 mg, Sublingual, 3 TIMES DAILY, First d ose (after last modification) on [facility] 07/19/21 at 1400, 2pm, 10 pm. 6 am Give SU[address]INGUAL. Place under the tongue and leave until completely dissolved. Patient should 2146 (Given - Provider: Alisa Ceja, GENARO) not swallow or chew tablet. Patient quan uld not eat/drink until tablet is completely dissolved. ceFAZolin (ANCEF) intermittent infusion 2 g in 100 mL dextrose PRE-MIX 0046 (New Bag - Provider: Paulino Ybarra, RN)0827 (New Bag - Provider: Vin Sims, GENARO)1504 (New Bag - Provider: Vin Sims, GENARO)2351 (New Bag - Provider: Alisa Ceja RN) 0834 (New Bag - Provider: Jay Boswell N)1553 (New Bag - Provider: Yani Preciaod, GENARO) 0051 (New Bag - Provider: Paulino [...] Preciado, GENARO) 0810 (Given - Provider: Andrzej Hodge, GENARO) Topical, 2 TIMES DAILY, First dose on Fri07/17/21 at 1999, Apply to arm rash famotidine (PEPCID) tablet 20 mg 0822 (Given - Provide r: Vin Sims RN)2000 (Given - Provider: Alisa Ceja RN) 0830 (Given - Provider: Areli Schwartz RN)1928 (Given - Provider: Yani Preciado, GENARO) 0807 (Given - Provider: Andrzej Hodge RN) 20 mg, Oral, 2 TIMES DAILY, First dose on Fri07/06/21 at 1999 fexofenadine (SRAVANTHI) tablet 180 mg 2000 (Given - Provider: Alisa Ceja RN) 1928 (Given - Provider: Yani Preciado RN) 180 mg, Oral, DAILY, First dose (after last modificati on) on Fri07/18/21 at 2000 folic acid (FOLVITE) tablet 1 mg 821 (Given - Provider: Norris Sims, GENARO) 08 (Given - Provider: Areli Schwartz, GENARO) 08 (Given - Provider: Andrzej Hodge, [...] Patient/family refused) 830 (Given - Provider: Areli Schwartz, GENARO) 2241 (Given - Provider: Yani Preciado, GENARO) 08 (Given - Provider: Andrzej Hodge RN) 20 g, Oral, 2 TIMES DAILY, First dose (a fter last modification) on 07/15/21 at 2000 levothyroxine (SYNTHROID/LEVOTHROID) tablet 125 mcg 08 (Given - Provider: Vin Sims, GENARO) 0830 (Given - Provider: Areli Schwartz, GENARO) 0647 (Given - Provider: Alisa Ceja RN) 125 mcg, Oral, EVERY MORNING BEFORE VELIA KFAST, First dose on 07/07/21 at 0730, Separate oral administration of iron- or calcium-containing products and levothyroxine by at least 4 hours. methocarbamol (ROBAXIN) tablet 750 mg 821 (Given - Pr ovider: Vin Sims, GENARO)1316 (Given - Provider: Vin Sims, GENARO)2000 (Given - Provider: Alisa Ceja RN) 0829 (Given - Provider: Areli Schwartz RN) 1420 (Given - Provider: Areli Schwartz RN)1929 (Given - Provider: Yani Preciado, GENARO) 0807 (Given - Provider: Andrzej Hodge RN)1401 [...] (Patch in Place - Provider: Alisa Ceja, GENARO)1423 (Patch in Place - Provider: Areli Schwartz [...] 0809 (Not Given - Provider: Andrzej lizama, RN - Reason: Patient/family refused) 17 g, [...] tablet 0821 (Given - Provider: Vin Sims, GENARO)2000 (Given - Provider: Alisa Ceja, GENARO) 08 (Given - Provider: Areli Schwartz RN)1928 (Given - Provider: Yani Preciado RN) 0809 (Not Given - Provider: Andrzej lizama, RN - Reason: Patient/family refused) 2 tablet, [...] Sims RN) 0829 (Given - Provider: Areli Schwartz, GENARO) 0807 (Given - Provider: Andrzej Hodge, GENARO) 100 mg, Oral, DAILY, First dose on Fri07/07/21 at 0800 triamcinolone (KENALOG) 0.1 % ointment 0832 (Given - P rovider: Vin Sims RN)2004 (Not Given - Provider: Alisa Ceja RN - Reason: Patient/family refused) 0839 (Given - Provider: Areli Schwartz RN) 224 (Not Given - Provider: Yani Preciado, GENARO - Reason: Patient/family refused) 08 (Not Given - Provider: Andrzej Hodge RN - Reason: Medication not available) Topical, 2 TIMES DAILY, First dose on 07/17/21 at 2000, Apply to other rash areas venlafaxine (EFFEXOR XR) 24 hr capsule 300 mg 0821 (Gi alex - Provider: Vin Sims RN) 08 (Given - Provider: Areli Schwartz RN) 08 (Given - Provider: Andrzej Hodge RN) 300 [...] Areli Schwartz RN)1951 (Given - Provider: Yani Preciado, GENARO) 25-50 mg, Oral, EVERY 6 HOURS PRN, [...] Oral, AT BEDTIME PRN, sleep, Starting on 07/23/21 at 013 6 mineral oil-hydrophilic petrolatum (AQUAPHOR) Topical, EVERY 1 HOUR PRN, dry skin, irr itation, Starting on Fri07/17/21 at 1531, Apply to all areas ondansetron (ZOFRAN ODT) ODT tab 4 mg(Linked Group 1) 1 (Given - Provider: Alisa Ceja RN) 4 [...] Sims, GENARO)1503 (Canceled Entry - Provider: Vin Sims, GENARO)1649 (Given - Provider: Vin Sims RN)2351 (Given - Provider: Alisa Ceja RN) 0842 (Given - Provider: Areli Schwartz RN) 1635 (Given - Provider: Yani Preciado, GENARO)2241 (Given - Provider: Yani Preciado, GENARO) 0818 (Given - Provider: Andrzej Hodge, RN)1401 (Given - Provider: Andrzej Hodge, RN) 5-10 mg, Oral, EVERY 6 HOURS PRN, modera te to severe pain, Starting on 07/15/21 at 1233, Start with lower dose. May increase to 10 mg as needed. Notify provider to assess for uncontrolled pain or leora lgesic side effects. Hold while on DENTAL MECHANIC or with regular IV opioid dosing. polyethylene [...] mL 10-40 mL, Intracatheter, EVERY 1 HOUR FL N, other, to lock EACH CVC - [...] documented as of this encounter Care Teams Server Security Administrator Relationship Specialty Start Date End Date Juanis Mckenzie PCP - General Addiction Medicine 06/29/21 [address] [place] [address] Deann Pina, LEAD FRONT DESK AGENT ALCOHOL STILL OPERATOR Assigned PCP 02/25/21 [facility] [address] [place], [place] [phone] documented as of this encounter
--- OUTSIDE RECORDS SUMMARY | 2021-12-14 16:18 | XMS_ITS | Encounter Summary ---
:1980 Author Organization [facility] Address [address] [place] [address] Care Team Providers Name Role Phone Clinic, [facility] Primary Care Provide r Guerita Haasdia Sanju AERIAL SURVEY TECHNICIAN SALESPERSON [employer] Unavailable [phone] Reason for Visit Reason Onset Date Comments Medication Request 02/12/2021 subutex Encounter Details Date Type Department Care Team Description 02/12/[address] [facility] Edgar Alfredo, [facility] ication Request Clinic Ashly VÁSQUEZ (subutex) [address] [place] [address] [place] [address] (Wo rk) Social History Tobacco Use Types Packs/Day Years Used Date Smoking Tobacco: Every Day Cigarettes 0.3 10 Smokeless Tobacco: Never Comments: 5-8 cigarettes a day Alcohol Use Standard Drinks/Week Comments Not Currently 0 (1 standard drink = 0.6 oz pure alcoho l) sober since 08/2020 Sex Assigned at Date Recorded Female 01/14/2020 10:57 AM GROUND SUPPORT EQUIPMENT ASSEMBLER COVID-19 Exposure Response Date Recorded In the last month, have you been in contact with No / Unsure 01/15/2021 1:15 PM GROUND SUPPORT EQUIPMENT ASSEMBLER someone who was confirmed or suspected to have Coronavirus / COVID-19? documented as of this encounter Miscellaneous Notes Telephone Encounter - Juanjose Parham - 02/12/2021 12:44 PM CST Reason for Call: Medication Request due to: missed appointment Name of the pharmacy and phone number for the current request: [facility][id number] - [place] [address] Request for bridge of: Subutex [...] Phone number patient can be reached at: [phone] Best Time: Any [place] SUPPORT EQUIPMENT ASSEMBLER documented in this encounter Plan of Treatment Upcoming Encounters Date Type Specialty Care Team Description 12/20/2021 Office Visit Wound Care Luis Camara, [place] [address] [place], [place] [phone] (Wo rk) 01/21/2022 PRE VISIT Gastroenterology Landon Warren, *-*WANDAIN G RECORDS*-* MD Luis Fernando [address] [place] [phone] (Wo rk) 01/21/2022 Office Visit Gastroenterology Juanis Levi [address] [place] [phone] Luis Fernando Miles MD [address] [place] [phone] documented as of this encounter Visit Diagnoses Diagnosis Opioid use disorder, severe, in sustaine d remission, on maintenance therapy (H) documented in this encounter Additional Health Concerns Assessment Noted Time PHQ-9 Depression Total Score: 2 12/15/2020 1:07 PM CDT documented as of this encounter Care Teams Linen Keeper Relationship Specialty Start Date End Date Clinic, [facility] PCP - General 01/20/18 06/28/[address] [place] [address] Tatyana Haas APRN SALESPERSON [employer] Assigned PCP 12/31/20 02/24/21 [place] [facility] [address] [facility] [address] [place] [address] documented as of this encounter
--- OUTSIDE RECORDS SUMMARY | 2021-12-14 16:18 | XMS_ITS | Encounter Summary ---
:1980 Author Organization [place] Address [address] [facility] [place] [address] Care Team Providers Name Role Phone Clinic, [facility] Primary Care Provide r Stephani Pina APRN CHEMICAL TEST ENGINEER Unavailable [phone] Juanis Levi Primary Care Provider Elsa Yeh RN Unavailable Unavailable Rogelio Treadwell MD Unavailable [phone] Luis Camara DPM Unavailable [phone] Camryn Christina MD Unavailable Sintia Lange PA-C Unavailable Luis Fernando Miles MD Unavailable [phone] Encounter Details Date Type Department Care Team Description 02/27/2021 Telephone [facility] Nithya Alfredo MD [place] [address] [place] [address] [place] [address] [place] [phone] Social History Tobacco Use Types Packs/Day Years Used Date Smoking Tobacco: Every Day Cigarettes 0.3 10 Smokeless Tobacco: Never Comments: 5-8 cigarettes a day Alcohol Use Standard Drinks/Week Comments Not Currently 0 (1 standard drink = 0.6 oz pure alcoho l) sober since 08/2020 Sex Assigned at Date Recorded Female 01/14/2020 10:57 AM PLATING INSPECTOR documented as of this encounter Miscellaneous [...] sick with Covid. Patient will end back [employer] message as needed. Rn also gave patient the contact number to call triage back as needed. ING INSPECTOR Telephone Encounter - Lurdes Lucas - 02/27/2021 1:55 PM CST Pt reports she missed her appt this morning because she and her family are sick with COVID. Appt wasrescheduled, but she asked for a bridge of her medications until then. ING INSPECTOR documented in this encounter Plan of Treatment Upcoming Encounters Date Type Specialty Care Team Description 12/20/2021 Office Visit Wound Care Luis Camara DPM 909 [place] [address] (Reinaldo molina) 01/21/2022 PRE VISIT Gastroenterology Landon Warren, *-*INCOMIN G RECORDS*-* MD Luis Fernando 516 [facility] 2A [place] [address] (Reinaldo molina) 01/21/2022 Office Visit Gastroenterology Juanis Levi [address] [place] [address] Luis Fernando Miles MD 516 [facility] [address] [place] [address] documented as of this encounter Visit Diagnoses Not on filedocumented in this encounter Additional Health Concerns Infection Onset Date Last Indicated Resolved Time MRSAComment: Added from external infection. 11/07/201406/18 Assessment Noted Time PHQ-9 Depression Total Score: 2 12/15/2020 1:07 PM CDT documented as of this encounter Care Teams Inspector Sheet Metal Parts Relationship Specialty Start Date End Date Clinic, [facility] PCP - General 01/20/[address] [phone] Juanis Levi PCP - General Addiction Medicine 06/29/21 [facility] [place] [address] Stephani Pina, Assigned PCP 02/25/21 TUBER MACHINE CUTTER CHEMICAL TEST ENGINEER [address] [place], [place] [address] Elsa Yeh, Registered Nurse Infectious Diseases 07/25/21 RN Rogelio Treadwell Assigned Musculoskeletal 08/04/21 MD August Provider [address] [place], [place] [address] Luis Camara MD Podiatry 08/16/21 [place] Burnett [address] [place], [place] 85[address] Camryn Christina Assigned Surgical 09/01/21 09/07/21 MD Lexie Provider 420 [facility] 195 [place] [address] Sintia Lange PA-C Assigned Surgical 09/08/[address] Provider FLOOR [place], [place] [address] Landon Warren MD Gastroenterology 11/21/21 MD Luis Fernando [address] [place] [address] [address] [place], [place] [phone] documented as of this encounter
--- OUTSIDE RECORDS SUMMARY | 2021-12-14 16:18 | XMS_ITS | Encounter Summary ---
:1980 Author Organization [place] Address [address] [place] [address] Care Team Providers Name Role Phone Clinic, [facility] Primary Care Provide r Stephani Pina Kim LEON PAPER PRODUCTS MACHINE OPERATOR Unavailable [phone] Encounter Details Date Type Department Care [...] Date Recorded Female 01/14/2020 10:57 AM MANAGER SOCIAL MEDIA COVID-19 Exposure Response Date Recorded In the last month, have you been in contact with No / Unsure 03/05/2021 9:18 AM MANAGER SOCIAL MEDIA someone who was confirmed or suspected to have Coronavirus / COVID-19? documented as of this encounter Plan of Treatment Upcoming Encounters Date Type Specialty Care Team Description 12/20/2021 Office Visit Wound Care Luis Camara DPM 909 [place] [address] (Reinaldo molina) 01/21/2022 PRE VISIT Gastroenterology Landon Warren, *-*WANDAIN G RECORDS*-* MD Luis Fernando [address] [address] (Wo rk) 01/21/2022 Office Visit Gastroenterology Juanis Levi [address]50 [facility] [place] [address] Luis Fernando Miles MD 516 [facility] [address] [place] [address] documented as of this encounter Visit Diagnoses Not on filedocumented in this encounter Additional Health Concerns Assessment Noted Time PHQ-9 Depression Total Score: 2 12/15/2020 1:07 PM CDT documented as of this encounter Care Teams Personal Fitness Trainer Relationship Specialty Start Date End Date Clinic, [facility] PCP - General 01/20/18 06/28/[address] [place] [address] [phone] Stephani Pina APRN PAPER PRODUCTS MACHINE OPERATOR Assigned PCP 02/25/21 [facility] 700 [place] [address] documented as of this encounter
--- OUTSIDE RECORDS SUMMARY | 2021-12-14 16:18 | XMS_ITS | Encounter Summary ---
:1980 Author Organization [place] Address [address] [place] [address] Care Team Providers Name Role Phone Clinic, [facility] Primary Care Provide r Stephani Pina Kim LEON HANDBAG FRAMES INSPECTOR Unavailable Encounter Details Date Type Department Care [...] Visit Wound Care Luis Camara DPM 909 [place] [address] (Reinaldo molina) 01/21/2022 PRE VISIT Gastroenterology Landon Warren, *-*WANDAIN G RECORDS*-* MD Luis Fernando [address] [address] (Wo rk) 01/21/2022 Office Visit Gastroenterology Juanis Levi 2450 [place] [address] Luis Fernando Miles MD 516 [facility] 2A [place], [place] [address] documented as of this encounter Visit Diagnoses Not on filedocumented in this encounter Additional Health Concerns Assessment Noted Time PHQ-9 Depression Total Score: 6 12/27/2019 9:38 AM MEDICAL PATHOLOGY TEACHER documented as of this encounter Care Teams Refuse Collector Supervisor Relationship Specialty Start Date End Date Clinic, [facility] PCP - General 01/20/18 06/28/[address] [place] [address] Stephani Pina APRN HANDBAG FRAMES INSPECTOR Assigned PCP 01/30/20 12/30/20 [facility] [address] [place] [address] documented as of this encounter
--- OUTSIDE RECORDS SUMMARY | 2021-12-14 16:18 | XMS_ITS | Encounter Summary ---
:1980 Author Organization [place] Address [address] [place] [address] Care Team Providers Name Role Phone Clinic, [facility] Primary Care Provide r Stephani Pina Kim LEON ELECTRIC FURNACE OPERATOR Unavailable Encounter Details Date Type Department Care [...] at Date Recorded Female 01/14/2020 10:57 AM COUNCILMAN COVID-19 Exposure Response Date Recorded In the last month, have you been in contact with No / Unsure 05/04/2021 11:13 AM CDT someone who was confirmed or suspected to have Coronavirus / COVID-19? documented as of this encounter Plan of Treatment Upcoming Encounters Date Type Specialty Care Team Description 12/20/2021 Office Visit Wound Care Luis Camara DPM 909 [place] [address] (Reinaldo molina) 01/21/2022 PRE VISIT Gastroenterology Landon Warren, *-*WANDAIN G RECORDS*-* MD Luis Fernando [address] [address] (Wo rk) 01/21/2022 Office Visit Gastroenterology Juanis Levi 2450 [place] [address] Luis Fernando Miles MD 516 [facility] 2[facility] [place], [place] [address] documented as of this encounter Visit Diagnoses Not on filedocumented in this encounter Additional Health Concerns Assessment Noted Time PHQ-9 Depression Total Score: 2 12/15/2020 1:07 PM CDT documented as of this encounter Care Teams Skilled Nursing Professional Relationship Specialty Start Date End Date Clinic, [facility] PCP - General 01/20/18 06/28/[address] [place] [address] [phone] Stephani Pina APRN ELECTRIC FURNACE OPERATOR Assigned PCP 02/25/21 [facility] 700 [place] [address] documented as of this encounter
--- OUTSIDE RECORDS SUMMARY | 2021-12-14 16:18 | XMS_ITS | Encounter Summary ---
:1980 Author Organization [place] Address [address] [place] [address] Care Team Providers Name Role Phone Clinic, [facility] Primary Care Provide r YovaniStephani APRN JOB ORDER CLERK Unavailable Reason for Visit Reason Onset Date Comments Erroneous encounter-disregard 08/25/2020 Encounter Details Date Type Department Care Team Description 08/23/2020 Virtual Visit [facility] Inocencio Newberry ERRONEOUS Hepatology Clinic JIMBO Jesus ENCOUNTER--DISREGARD [address] (Primary Dx) [address] [place] [phone] Social History Tobacco Use Types Packs/Day Years Used Date Smoking Tobacco: Every Day Cigarettes 0.3 10 Smokeless Tobacco: Never Comments: 5-8 cigarettes a day Alcohol Use Standard Drinks/Week Comments Not Currently 0 (1 standard drink = 0.6 oz pure drinki ng a pint of vodka daily alcohol) Sex Assigned at Date Recorded Female 01/14/2020 10:57 AM IMMUNOHEMATOLOGIST COVID-19 Exposure Response Date Recorded In the [...] Visit Wound Care Luis Camara, [place] [address] [place] [address] (Wo rk) 01/21/2022 PRE VISIT Gastroenterology Landon Warren, *-*WANDAIN G RECORDS*-* MD Luis Fernando [address] [place] [address] (Wo rk) 01/21/2022 Office Visit Gastroenterology Juanis Levi 2450 [place] [phone] Luis Fernando Miles MD [address] [place] [address] documented as of this encounter Visit Diagnoses Diagnosis ERRONEOUS ENCOUNTER--DISREGARD - Primary documented in this encounter Additional Health Concerns Assessment Noted Time PHQ-9 Depression Total Score: 6 12/27/2019 9:38 AM IMMUNOHEMATOLOGIST documented as of this encounter Care Teams Certified Control Systems Technician Relationship Specialty Start Date End Date Clinic, [facility] PCP - General 01/20/18 06/28/21 4645 [place] [address] Stephani Pina, FARZANA JOB ORDER CLERK Assigned PCP 01/30/20 12/30/20 [address] [place] [address] documented as of this encounter
--- OUTSIDE RECORDS SUMMARY | 2021-12-14 16:18 | XMS_ITS | Encounter Summary ---
:1980 Author Organization [place] Address [address] [place] [address] Care Team Providers Name Role Phone Clinic, [facility] Primary Care Provide r YovaniStephani APRN GLASS BLOWER Unavailable Encounter Details Date Type Department Care [...] at Date Recorded Female 01/14/2020 10:57 AM FRONT DESK TEAM MEMBER COVID-19 Exposure Response Date Recorded In the last month, have you been in contact with No / Unsure 09/27/2020 10:05 AM CDT someone who was confirmed or suspected to have Coronavirus / COVID-19? documented as of this encounter Plan of Treatment Upcoming Encounters Date Type Specialty Care Team Description 12/20/2021 Office Visit Wound Care Luis Camara DPM 909 [place] [address] (Wo rk) 01/21/2022 PRE VISIT Gastroenterology Landon Warren, *-*WANDAIN G RECORDS*-* MD Luis Fernando 516 [facility] [address] [place] [address] (Wo rk) 01/21/2022 Office Visit Gastroenterology Juanis Levi 2450 [place] [address] Luis Fernando Miles MD 516 [facility] [place], [place] [address] documented as of this encounter Visit Diagnoses Not on filedocumented in this encounter Additional Health Concerns Assessment Noted Time PHQ-9 Depression Total Score: 6 12/27/2019 9:38 AM FRONT DESK TEAM MEMBER documented as of this encounter Care Teams Manager Adobe Relationship Specialty Start Date End Date Clinic, [facility] PCP - General 01/20/18 06/28/[address] [place] [address] Stephani Pina APRN GLASS BLOWER Assigned PCP 01/30/20 12/30/20 [address] [place] [address] documented as of this encounter
--- OUTSIDE RECORDS SUMMARY | 2021-12-14 16:18 | XMS_ITS | Encounter Summary ---
:1980 Author Organization [place] Address [facility] [place] [address] Care Team Providers Name Role Phone Clinic, [facility] Primary Care Provide r Stephani Pina Kim LEON AUTOGRAPHER Unavailable Reason for Visit Reason Onset Date Comments Erroneous encounter-disregard 03/26/2021 follow up last seen 08/23/2020 Encounter Details Date Type Department Care Team Description 03/26/2021 PRE VISIT [facility] Landon Warren, Brian Hepatology Clinic MD Luis Fernando encounter-disregard [address] (follow up last seen [address] [facility] [address] 08/23/2020) [place] [address] [phone] (Wo rk) Social History Tobacco Use Types Packs/Day Years Used Date Smoking Tobacco: Every Day Cigarettes 0.3 10 Smokeless Tobacco: Never Comments: 5-8 cigarettes a day Alcohol Use Standard Drinks/Week Comments Not Currently 0 (1 standard drink = 0.6 oz pure alcoho l) sober since 08/2020 Sex Assigned at Date Recorded Female 01/14/2020 10:57 AM PARTS REMOVER COVID-19 Exposure Response Date Recorded In the last month, have you been in contact with No / Unsure 03/05/2021 9:18 AM PARTS REMOVER someone who was confirmed or suspected to have Coronavirus / COVID-19? documented as of this encounter Miscellaneous Notes Telephone Encounter - Carie Ford Maycol - 03/16/2021 11:11 AM CST disregard S REMOVER documented in this encounter Plan of Treatment Upcoming Encounters Date Type Specialty Care Team Description 12/20/2021 Office Visit Wound Care Luis Camara, [place] [address] [place] [address] (Wo rk) 01/21/2022 PRE VISIT Gastroenterology Landon Warren, *-*HEATHER G RECORDS*-* MD Luis Fernando [address] [place] [address] (Wo rk) 01/21/2022 Office Visit Gastroenterology Juanis Levi [address] [place] [phone] Luis Fernando Miles MD [address] [place] [address] [phone] documented as of this encounter Visit Diagnoses Not on filedocumented in this encounter Additional Health Concerns Assessment Noted Time PHQ-9 Depression Total Score: 2 12/15/2020 1:07 PM CDT documented as of this encounter Care Teams Car Repairer Helper Relationship Specialty Start Date End Date Clinic, [facility] Medical PCP - General 01/20/18 06/28/21 4[address] [place] [address] Stephani Pina, SAFETY INVESTIGATOR AUTOGRAPHER Assigned PCP 02/25/21 [address] [facility] 700 [place] [address] documented as of this encounter
--- OUTSIDE RECORDS SUMMARY | 2021-12-14 16:18 | XMS_ITS | Encounter Summary ---
:1980 Author Organization [place] Address [address] [facility] [place] [address] Care Team Providers Name Role Phone Clinic, [facility] Primary Care Provide r Guerita Haasherb Bills RUBBER STAMP ASSEMBLER WAGE HAND Unavailable [phone] Encounter Details Date Type Department Care Team Description 02/12/2021 Office Visit [facility] Edgar Alfredoplic ated opioid Clinic Ashly Gauthier MD dependence (H) (Primary [address]) [address] [place] [phone] Social History Tobacco Use Types Packs/Day Years Used Date Smoking Tobacco: Every Day Cigarettes 0.3 10 Smokeless Tobacco: Never Comments: 5-8 cigarettes a day Alcohol Use Standard Drinks/Week Comments Not Currently 0 (1 standard drink = 0.6 oz pure alcoho l) sober since 08/2020 Sex Assigned at Date Recorded Female 01/14/2020 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 documented as of this encounter Progress Notes Edgar Alfredo MD - 02/12/2021 10:40 AM CST NO SHOW T ELECTRICIAN documented in this encounter Plan of Treatment Upcoming Encounters Date Type Specialty Care Team Description 12/20/2021 Office Visit Wound Care Ho[place] Luis Lex, DPM 9[address] [place], [place] [phone] (Wo rk) 01/21/2022 PRE VISIT Gastroenterology Landon Warren, *-*INCOMIN G RECORDS*-* MD Luis Fernando [address] [place] [address] 2[address] [place], [place] [address] (Wo rk) 01/21/2022 Office Visit Gastroenterology Juanis Levi [address] [place] [phone] Luis Fernando Miles MD [address] [place] [address] documented as of this encounter Visit Diagnoses Diagnosis Uncomplicated opioid dependence (H) - Pr imary Opioid type dependence, unspecified documented in this encounter Additional Health Concerns Assessment Noted Time PHQ-9 Depression Total Score: 2 12/15/2020 1:07 PM CDT documented as of this encounter Care Teams Waste/Materials Exchange Specialist Relationship Specialty Start Date End Date Clinic, [facility] PCP - General 01/20/18 06/28/[address] [place] [address] Tatyana Haas, RUBBER STAMP ASSEMBLER WAGE HAND Assigned PCP 12/31/20 02/24/21 [facility] [address] [facility] [address] [place] [address] documented as of this encounter
--- OUTSIDE RECORDS SUMMARY | 2021-12-14 16:18 | XMS_ITS | Encounter Summary ---
:1980 Author Organization [place] Address [address] [place] [address] Care Team Providers Name Role Phone Clinic, [facility] Primary Care Provide r Guerita Haasherb Bills FULL DECATOR OPERATOR AGRONOMY ADVISOR Unavailable [phone] Encounter Details Date Type Department Care [...] at Date Recorded Female 01/14/2020 10:57 AM CORK INSULATOR COVID-19 Exposure Response Date Recorded In the last month, have you been in contact with No / Unsure 01/15/2021 1:15 PM CORK INSULATOR someone who was confirmed or suspected to have Coronavirus / COVID-19? documented as of this encounter Plan of Treatment Upcoming Encounters Date Type Specialty Care Team Description 12/20/2021 Office Visit Wound Care Luis Camara DPM [address]09 [place] [address] (Reinaldo molina) 01/21/2022 PRE VISIT Gastroenterology Landon Warren, *-*WANDAIN G RECORDS*-* MD Luis Fernando [address] [address] (Wo rk) 01/21/2022 Office Visit Gastroenterology Juanis Levi [address] [place] [address] Luis Fernando Miles MD 516 [facility] 2[address] [place], [place] [address] documented as of this encounter Visit Diagnoses Not on filedocumented in this encounter Additional Health Concerns Assessment Noted Time PHQ-9 Depression Total Score: 2 12/15/2020 1:07 PM CDT documented as of this encounter Care Teams Residential Program Director Relationship Specialty Start Date End Date Clinic, [facility] PCP - General 01/20/18 06/28/[address] [place] [address] [phone] Tatyana Haas APRN AGRONOMY ADVISOR Assigned PCP 12/31/20 02/24/21 [facility] [address] [facility] [address] [place], [place] [address] documented as of this encounter
--- OUTSIDE RECORDS SUMMARY | 2021-12-14 16:18 | XMS_ITS | Encounter Summary ---
:1980 Author Organization [facility] Address [address] [facility] [place] [address] Care Team Providers Name Role Phone Deann Pina APRN CLINICAL REHAB SPECIALIST Unavailable [phone] Juanis Mckenzie Primary Care Provider Reason for Visit Auth/Cert Specialty Diagnoses / Procedures Referred By Contact Refer red To Contact Med Surg Diagnoses Complicated Osteomyelitis Ur Ortho [address] [place] [address] Phone: Fax: Referral ID Status Reason Start Date Expiration Date Visits Requ ested Visits Authorized [id number] 1 1 Encounter Details Date Type Department Care Team Description 07/07/2021 Surgery [facility] Wm Olivera IRRIGATION AND PeriOp Services MD Flo DEBRIDEMENT, FOOT and [address] [place] [address] [address] [facility] [address] [place] [address] [place] [address] exchange [phone] (Wo rk) Surgery Details Date/Time Status Location [...] Date Recorded Female 01/14/2020 10:57 AM DIE PRESSER documented as of this encounter Last Filed [...] Howell MD - 07/23/2021 7:40 AM CDT [facility] Hospitalist Discharge Summary Date of Admission: 07/06/2021 Date of Discharge: 07/23/2021 Discharging Provider: Elizabeth Howell MD Discharge Service: Hospitalist Service, [facility] TEAM 17 Discharge Diagnoses # R [...] Follow-ups Needed After Discharge Follow-up Appointments Adult [facility] Follow-up and recommended labs and tests Follow up with Dr Camara or Morgan with Podiatry in 1-2 weeks. Clinic phone number is [phone] Follow up with Plastic Surgery in 2 weeks. Follow up with infectious disease 4-6 weeks. Follow-up Labs: Weekly CBC w diff, BMP, CRP. Please have labs faxed to ID clinic. Appointments on [place] and/or [facility] (with [facility] or [facility] provider or service). Call [phone] if you haven't heard regarding these appointments [...] anxiety, and tobacco abuse??admitted on 07/06/21 from [facility] for further care of R ankle osteomyelitis by Orthopedics, Plastics, and Infectious Disease.? 07/19: Per patient request: Increased Subutex dose to 8 mg 3 times daily, SAWMILLING OPERATOR dose. Schedule Robaxin 750 3 times daily. [...] epic for recommendations.. ??>Pain control: Currently controlled. -Continue??SAWMILLING OPERATOR??Suboxone 8mg tid ??; scheduled APAP 975mg TID, [...] allergenic polyurethane foam dressings (Mepitac tape, Sorbiview, [id number]) over occlusive adhesive semipermeable gauze dressings; WOC [...] improving.?? # Alcohol use disorder.?? HCV quant [id number]??at OSH. ??AST 117, ALT 44, and AP [...] with periods of confusion early in admission. ??[place] to be??toxic vs metabolic??/ ?withdrawal, infection, sepsis. [...] Stay INTERNAL MEDICINE ADULT IP CONSULT FOR [facility] PHYSICAL THERAPY ADULT IP CONSULT OCCUPATIONAL THERAPY ADULT IP CONSULT INFECTIOUS DISEASE [facility] ADULT IP CONSULT ORTHOPAEDIC SURGERY ADULT/PEDS IP [...] discharging this patient. Elizabeth Howell MD [facility] MED SURG ORTHOPEDIC [address] [place] [phone] Physical Exam Vital Signs: Temp: 98.6 ??F [...] performing Friday and Friday VAC changes Adult [facility] Follow-up and recommended labs and tests Follow up with Dr Camara or Morgan with Podiatry in 1-2 weeks. Clinic phone number is [phone] Follow up with Plastic Surgery in 2 weeks. Follow up with infectious disease 4-6 weeks. Follow-up Labs: Weekly CBC w diff, BMP, CRP. Please have labs faxed to ID clinic. Appointments on [place] and[facility]or [facility] (with [facility] or [facility] provider or service). Call [phone] if you haven't heard regarding these appointments [...] MD Echo Complete Value LVEF 55-60% Narrative [id number]^BUTCH^JAIME [facility] [address] [place] [address] Name: DEANN KING : 1980 Study Date: 07/08/2021 12:07 PM Age: 40 yrs Gender: Female [place] [facility] [place] For Study: Endocarditis [...] Qty: 90 tablet, Refills: 0 Comments: JAMES: [id number] Associated Diagnoses: Opioid use disorder, severe, in [...] Rae MD - 07/21/2021 12:29 PM CDT [facility] Hospitalist Discharge Summary Date of Admission: 07/06/2021 Date of Discharge: 07/21/2021 Discharging Provider: Jaime Rae MD Discharge Service: Hospitalist Service, [facility] TEAM 17 Discharge Diagnoses # R [...] Follow-ups Needed After Discharge Follow-up Appointments Adult [facility] Follow-up and recommended labs and tests Follow up with Dr Camara or Morgan with Podiatry in 1-2 weeks. Clinic phone number is [phone] Follow up with Plastic Surgery in 2 weeks. Follow up with infectious disease 4-6 weeks. Follow-up Labs: Weekly CBC w diff, BMP, CRP. Please have labs faxed to ID clinic. Appointments on [place] and/or [facility] (with [facility] or [facility] provider or service). Call [phone] if you haven't heard regarding these appointments [...] anxiety, and tobacco abuse??admitted on 07/06/21 from [facility] for further care of R ankle osteomyelitis by Orthopedics, Plastics, and Infectious Disease.? 07/19: Per patient request: Increased Subutex dose to 8 mg 3 times daily, SAWMILLING OPERATOR dose. Schedule Robaxin 750 3 times daily. [...] epic for recommendations.. ??>Pain control: Currently controlled. -Continue??SAWMILLING OPERATOR??Suboxone 8mg tid ??; scheduled APAP 975mg TID, [...] allergenic polyurethane foam dressings (Mepitac tape, Sorbiview, [id number]) over occlusive adhesive semipermeable gauze dressings; WOC [...] improving.?? # Alcohol use disorder.?? HCV quant 374023??at OSH. ??AST 117, ALT 44, and AP [...] with periods of confusion early in admission. ??[place] to be??toxic vs metabolic??2/2 ?withdrawal, infection, sepsis. [...] Stay INTERNAL MEDICINE ADULT IP CONSULT FOR [facility]ERAPY ADULT IP CONSULT OCCUPATIONAL THERAPY ADULT IP CONSULT INFECTIOUS DISEASE [facility] ADULT IP CONSULT ORTHOPAEDIC SURGERY ADULT/PEDS IP [...] discharging this patient. Jaime Rae MD [facility] MED SURG ORTHOPEDIC [address] [place] [phone] Physical Exam Vital Signs: Temp: 98.3 ??F [...] performing Friday and Friday VAC changes Adult [facility] Follow-up and recommended labs and tests Follow up with Dr Camara or Morgan with Podiatry in 1-2 weeks. Clinic phone number is [phone] Follow up with Plastic Surgery in 2 weeks. Follow up with infectious disease 4-6 weeks. Follow-up Labs: Weekly CBC w diff, BMP, CRP. Please have labs faxed to ID clinic. Appointments on [place] and/or [facility] (with [facility] or [facility] provider or service). Call [phone] if you haven't heard regarding these appointments [...] MD Echo Complete Value LVEF 55-60% Narrative [id number]^BUTCH^JAIME [facility] [address] [place] [address] Name: DEANN KING : 1980 Study Date: 07/08/2021 12:07 PM Age: 40 yrs Gender: Female [place] [facility] [place] Reason For Study: Endocarditis [...] Qty: 90 tablet, Refills: 0 Comments: SIMRANBHARAT: [id number] Associated Diagnoses: Opioid use disorder, severe, in [...] with vac drape prior to applying sponge sweeper driver to assess integrity of dressing and ensure [...] from the original note were not included. [facility] Nurse Inpatient Assessment Today's Assessment: Right [...] with vac drape prior to applying sponge sweeper driver to assess integrity of dressing and ensure [...] to notify the Provider(s) and re-consult the [facility] Nurse if new skin concern. DATA: Current [...] 19 Lisa Chandler RN, CWOCN Dept. Pager: [phone] Dept. Office Number: [phone] Tiffanie Figueroa RN - 07/23/2021 10:17 AM CDT Care Management Discharge Note Discharge Date: 07/23/2021 Discharge Disposition: TCU PAS Confirmation Code: [id number] Education Provided on the Discharge Plan: yes Persons Notified of Discharge Plans: patient and mother, So. Patient/Family in Agreement with the Plan: yes Handoff Referral Completed: Yes Additional Information: Plan for patient to discharge to TCU at 4pm today pending staffing. RNCC available as needed. Update 1400: [facility] at 1600. split leather department supervisor and bedside RN aware. Bedside RN toarrange transport at 1600. RNCC available as needed. Dr. Mckenzie with [facility] will prescribe Suboxone at discharge. Tiffanie Machado RN, BSN Film Color Tester, Ortho Pager Jaime Rae MD - 07/22/2021 8:58 AM CDT [facility] Medicine Progress Note - Hospitalist Service, ONUR TEAM 17 Date of Admission: 07/06/2021 Assessment & Plan 40 year old female??with past medical history significant for opioid use disorder,??alcohol use disorder,??HCV, hypothyroidism, depression, anxiety, and tobacco abuse??admitted on 07/06/21 from [facility] for further care of R ankle osteomyelitis by Orthopedics, Plastics, and Infectious Disease.? Today's changes: 07/22/2021 Overall doing better. No new concern/changes by me Aw TCU. See discharge summary 07/21 07/19:??Per patient request: Increased Subutex dose to 8 mg 3 times daily, SAWMILLING OPERATOR dose. ??Schedule Robaxin 750 3 times daily. [...] epic for recommendations.. ?>Pain control: Currently controlled. -Continue??SAWMILLING OPERATOR??Suboxone ??8mg tid ??; scheduled APAP 975mg TID, [...] allergenic polyurethane foam dressings (Mepitac tape, Sorbiview, [id number]) over occlusive adhesive semipermeable gauze dressings; WOC [...] improving.?? # Alcohol use disorder.?? HCV quant 394867??at OSH. ??AST 117, ALT 44, and AP [...] with periods of confusion early in admission. ??[place] to be??toxic vs metabolic??2/2 ?withdrawal, infection, sepsis. [...] care was discussed with the Bedside Nurse, Film Color Tester/Sole Ruffer and Patient. Jaime Rae MD Hospitalist Service, [facility] TEAM [address] [place] [address] Securely message with the [email or web address] Console (learn more here) Text page via [facility] Paging/Directory Please see signed in provider for [...] Agreement with the Plan: yes Additional Information: [facility] is unable to accept patient today due to staffing. Admissions requested that patient bebrought over there tomorrow at 1100. Notified charge nurse. Updated patient and she verbalized understanding and agreement to plan. MICHAEL Mehta RNCC RN Film Color Tester Office: [phone] Pager: [phone] Cali Zavaleta MD - 07/21/2021 12:17 PM [...] this note to the appropriate Epic pools: [facility] INFECTIOUS DISEASE ADULT [facility], [facility], [facility]/ID Clinic Information: [address] [facility] Clinic [address] [place] [address] Cali Bullock MD on 07/21/2021 at 12:19 PM Cali Bullock MD - 07/21/2021 12:03 PM CDT Images from the original note were not included. 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 Negativesince then. Confirmed with [...] and worse about 2 weeks before admissionto [facility]. Also had periodic fever for 1-2 weeks - MRI right ankle wo contrast 06/29/21 - extensive tibiotalar erosions with large joint effusion and synovitis . - 06/30/21 ([facility]) - Right lateral ankle deep [...] subcutaneous tissue without exposed bone. - 07/02/21 ([facility]) - Right lateral ankle I&D, right lateral calcaneus hardware removal and ankle wound vac exchange. With repeat debridement the wound extended down to the bone and the hardware. All 5 screws were removed and plate was removed. The peroneal tendon and calcaneous were exposed, The defect now measured 7x 4 cm with a depth of 2 cm. - 07/04/21 ([facility]) - Right lateral ankle I&D and wound vac replacement. - 07/07/21 ([facility]) - Right ankle I&D and wound [...] VL since then), whot was admitted to [facility] from 06/28/21 - 07/06/21 with [...] was then transferred to the [facility] on [...] oxacillin susceptible. Cali Bullock MD Infectious Diseases [id number] Interval events Patient overall feels okay. Tolerating [...] abuse. ?? The patient was admitted to [facility] from 06/28/04 - 07/06/21 with [...] to the [facility] [facility] and had a irrigation [...] patient was then transferred to the [facility] ([facility] on [...] I&D and wound vac replacement. - 07/07/21 ([facility] - Right ankle I&D and wound vac [...] costs discussed: Not applicable PAS Confirmation Code: [id number] Patient/family educated on Medicare website which has current facility and service quality ratings: Yes, [facility] Education Provided on the Discharge Plan: yes Persons Notified of Discharge Plans: pt, ortho split leather department supervisor Adam, Dr Rae Patient/Family in Agreement with the Plan: yes Handoff Referral Completed: Yes Additional Information: SW met with pt and reviewed discharge plan, including referral to Senior Linkage line for PAS/RR. Ptwas very groggy so may not recall conversation. SW updated split leather department supervisor Adam and Dr. Rae with anticipated discharge to TCU today @ 1:30. YADIRA Diamond MSW [facility] Friday Sole Ruffer Text paging available through [employer] on [employer] - search SOCIAL WORK GRANITE INSTALLER PAGER [phone] - [phone] Friday ONLY! GRANITE INSTALLER COVERAGE AFTER 1600 Alyce Israel MSW - [...] and a bed become available. ADDENDUM 10:23: Die Trimmer informed by Leslie Parikh rehab director that there may be a discharge from TCU this afternoon and could possibly accept pt for admissions at 1:30. She is requesting Rapid Covid Test. SW informed Ortho split leather department supervisor Cuate, who will request rapid COVID Test. JACKIE completed PAS/RR on line: [id number]. Pt updated. YADIRA Diamond MSW [facility] Friday Sole Ruffer Text paging available through [employer] on [facility] [employer] - search SOCIAL WORK GRANITE INSTALLER PAGER [phone] - [phone] Friday ONLY! GRANITE INSTALLER COVERAGE AFTER 1600 Paulino Ybarra RN - [...] Rae MD - 07/20/2021 10:56 AM CDT [facility] Medicine Progress Note - Hospitalist Service, ONUR TEAM 17 Date of Admission: 07/06/2021 Assessment & Plan 40 year old female??with past medical history significant for opioid use disorder,??alcohol use disorder,??HCV, hypothyroidism, depression, anxiety, and tobacco abuse??admitted on 07/06/21 from [facility] for further care of R ankle osteomyelitis by Orthopedics, Plastics, and Infectious Disease.? Today's changes: 07/20/2021 Overall doing better. Rash, pruritus: improving. Pain controlled. No new concern/changes by me Aw tcu Ortho, ID, Dermatology, WOCN- following. 07/19: Per patient request: Increased Subutex dose to 8 mg 3 times daily, SAWMILLING OPERATOR dose. Schedule Robaxin 750 3 times daily. [...] vac. WOCN consult. ?? - Pain control: -Continue??SAWMILLING OPERATOR??Suboxone 8mg tid ??; scheduled APAP 975mg TID, [...] improving.?? # Alcohol use disorder.?? HCV quant 253973??at OSH. ??AST 117, ALT 44, and AP [...] with periods of confusion early in admission. ??[place] to be??toxic vs metabolic??2/2 ?withdrawal, infection, sepsis. [...] care was discussed with the Bedside Nurse, Film Color Tester/Sole Ruffer and Patient. Jaime Rae MD Hospitalist Service, [facility] TEAM [address] [place] [address] Securely message with the [email or web address] Console (learn more here) Text page via [facility] Paging/Directory Please see signed in provider for [...] from the original note were not included. [facility] Nurse Inpatient Assessment Today's Assessment: Right [...] with vac drape prior to applying sponge sweeper driver to assess integrity of dressing and ensure [...] plan of care with: Patient and Nurse [facility] Nurse follow-up plan:Friday/ Notify WO if wound(s) [...] Emily Macias RN BSN CWOCN Dept. Pager: [phone] Dept. Office Number: [phone] Jaime Rae MD - 07/19/2021 12:42 PM CDT [facility] Medicine Progress Note - Hospitalist Service, ONUR TEAM 17 Date of Admission: 07/06/2021 Assessment & Plan 40 year old female??with past medical history significant for opioid use disorder,??alcohol use disorder,??HCV, hypothyroidism, depression, anxiety, and tobacco abuse??admitted on 07/06/21 from [facility] for further care of R ankle osteomyelitis by Orthopedics, Plastics, and Infectious Disease.? Today's changes: 07/19/2021 Overall doing better. Rash, pruritus: improving. Per patient request: Increased Subutex dose to 8 mg 3 times daily, SAWMILLING OPERATOR dose. Schedule Robaxin 750 3 times daily. [...] vac. WOCN consult. ?? - Pain control: -Continue??SAWMILLING OPERATOR??Suboxone 8mg tid ??; scheduled APAP 975mg TID, [...] improving.?? # Alcohol use disorder.?? HCV quant 597536??at OSH. ??AST 117, ALT 44, and AP [...] with periods of confusion early in admission. ??[place] to be??toxic vs metabolic??2/2 ?withdrawal, infection, sepsis. [...] care was discussed with the Bedside Nurse, Film Color Tester/Sole Ruffer and Patient. Jaime Rae MD Hospitalist Service, [facility] TEAM [address] [place] [address] Securely message with the [employer] (learn more here) Text page via [employer] Paging/Directory Please see signed in provider for [...] continue to follow. Tiffanie Machado RN, BSN Film Color Tester, 5 Ortho Pager Jah Thompson MD - [...] Rae MD - 07/18/2021 1:47 PM CDT [facility] Medicine Progress Note - Hospitalist Service, GOLD TEAM 17 Date of Admission: 07/06/2021 Assessment & Plan 40 year old female??with past medical history significant for opioid use disorder,??alcohol use disorder,??HCV, hypothyroidism, depression, anxiety, and tobacco abuse??admitted on 07/06/21 from [facility] for further care of R [...] vac. WOCN consult. ?? - Pain control: continue??SAWMILLING OPERATOR??Suboxone 4mg Q4H (was taking this way at [...] improving.?? # Alcohol use disorder.?? HCV quant 970272??at OSH. ??AST 117, ALT 44, and AP [...] with periods of confusion early in admission. ??[place] to be??toxic vs metabolic??2/ ?withdrawal, infection, sepsis. [...] managed on??buprenorphine??since 2009. ??On buprenorphine 4mg QID SAWMILLING OPERATOR, increased to Q4H at OSH due to [...] care was discussed with the Bedside Nurse, Film Color Tester/Sole Ruffer and Patient. Jaime Rae MD Hospitalist Service, [facility] TEAM [address] [place] [address] Securely message with the [email or web address] Console (learn more here) Text page via [employer] Paging/Directory Please see signed in provider for [...] from the original note were not included. [facility] Nurse Inpatient Assessment Today's Assessment: Right [...] with vac drape prior to applying sponge sweeper driver to assess integrity of dressing and ensure [...] 19 Lisa Chandler RN, CWOCN Dept. Pager: [phone] Dept. Office Number: [phone] Cali Bullock MD - 07/18/2021 12:44 PM CDT Images from the original note were not included. 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 negativesince then. Confirmed with [...] and worse about 2 weeks before [facility]to [facility]. Also had periodic fever for 1-2 weeks - MRI right ankle wo contrast 06/29/21 - extensive tibiotalar erosions with large joint effusion and synovitis . - 06/30/21 ([facility]) - Right lateral ankle deep [...] subcutaneous tissue without exposed bone. - 07/02/21 ([facility]) - Right lateral ankle I&D, right lateral calcaneus hardware removal and ankle wound vac exchange. With repeat debridement the wound extended down to the bone and the hardware. All 5 screws were removed and plate was removed. The peroneal tendon and calcaneous were exposed, The defect now measured 7x 4 cm with a depth of 2 cm. - 07/04/21 ([facility]) - Right lateral ankle I&D and wound vac replacement. - 07/07/21 ([facility]) - Right ankle I&D and wound [...] VL since then), whot was admitted to [facility] from 06/28/21 - 07/06/21 with [...] was then transferred to the [facility] [...] clinical course Cali Bullock MD Infectious Diseases [phone] Interval events Patient overall feels okay. Wound [...] abuse. ?? The patient was admitted to [facility] from 06/28/04 - 07/06/21 with [...] the OR on 06/30/[address] [facility] and had a irrigation and debridement of right lateral ankle abscess and wound vac placement. The patient then returned to the OR on 07/02/21 for a repeat irrigation and debridement, lateralcalcaneus hardware removal, and wound vac exchanged. On 07/04/21, patient returned to OR for repeat I&D and wound vac exchange (see procedures below). The patient was then transferred to the [facility]) on 07/06/21 for further management due [...] I&D and wound vac replacement. - 07/07/21 ([facility] - Right ankle I&D and wound vac [...] Camara. Future Appointments Date Time Provider Department [place] 07/07/2021 7:00 PM UR OT WAITLIST UROT [place] 07/08/2021 8:00 AM Carmencita Li Pt, PT URPT [place] ?? Carlos A Thompson MD Orthopaedic Surgery, [...] place for 6 weeks IV antibiotics. This software writer noticed a redness around the PICC site and the dressing dislodged by patient. This software writer notified the bedside RN. Traffic Counter made recommendations. See note. [facility] RN also assessed and redressed PICC site. Spoke with patient's mother, So, who agreed with the plan of patient going to TCU. So is caring for patient's three children while she is in the hospital. This software writer will continue to follow up on TCU referrals. Tiffanie Machado RN, BSN Film Color Tester, 5 Ortho Pager Alam Oswald MD - 07/17/2021 2:45 PM CDT Images from the original note were not included. [facility] Inpatient Teledermatology Store and Forward Progress Note [...] allergenic polyurethane foam dressings (Mepitac tape, Sorbiview, [id number]) over occlusive adhesive semipermeable gauze dressings; WOC [...] Oncol Nurs. 2012 May;16(2):E48-55. doi: 10.1188/12.CJON.E48-E55. PMID: [id number]. Thank you for this teledermatology consultation. Please do not hesitate to contact with any additional questions or concerns. Attending physician: Dr. Kathryn Oswald MD Dermatology Resident [facility] Relevant History: Based on chart review and direct communication with consulting team 40 year old female??with past medical history significant for opioid use disorder,??alcohol use disorder,??HCV, hypothyroidism, depression, anxiety, and tobacco abuse??admitted on 07/06/21 from [facility] for further care of R [...] patient in-person. Brice Peralta MD Pronouns: he/him/his Display Trimmer Department of Dermatology [facility]: , [facility]: Lona Zhao RN - 07/17/2021 1:47 PM CDT Images from the original note were not included. Bedside RN paged VAS for assessing patient's left arm PICC due to skin issues. This software writer discovered that the skin was irritated [...] Rae MD - 07/17/2021 1:10 PM CDT [facility] Medicine Progress Note - Hospitalist Service, ONUR TEAM 17 Date of Admission: 07/06/2021 Assessment & Plan 40 year old female??with past medical history significant for opioid use disorder,??alcohol use disorder,??HCV, hypothyroidism, depression, anxiety, and tobacco abuse??admitted on 07/06/21 from [facility] for further care of R ankle osteomyelitis by Orthopedics, Plastics, and Infectious Disease.? Today's changes: 07/17/2021 Doing okay. Ongoing rash, pruritus issue including around picc line. Dermatology consulted. Added clobetasol andtriamcinolone ointment per recs. Increase hydroxyzine to 25-50 mg prn for itching. Increase rsavanthi to 180 mg daily ?Picc line pulled [...] vac. WOCN consult. ?? - Pain control: continue??SAWMILLING OPERATOR??Suboxone 4mg Q4H (was taking this way at [...] improving.?? # Alcohol use disorder.?? HCV quant 442004??at OSH. ??AST 117, ALT 44, and AP [...] with periods of confusion early in admission. ??[place] to be??toxic vs metabolic??2/2 ?withdrawal, infection, sepsis. [...] managed on??buprenorphine??since 2009. ??On buprenorphine 4mg QID SAWMILLING OPERATOR, increased to Q4H at OSH due to [...] PRESENT PICC Single Lumen Left-Site Assessment: WDL except;[place];Tender Cardiac Monitoring: None Code Status: Full Code Disposition Plan Expected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 gas. Activity: Independent up to [facility] pivoting. Up for meals? Sitting [...] Note to Pharmacy: For [facility], [facility] and [facility]: For Zosyn-naive patients, use the Zosyn initial [...] verbal consent to Sintia Swain RN for [facility] staff to speak with mother So Parker [...] Info: Pharmacy-Vancomycin Dosing Service - Lurdes Sierra [facility] - 07/11/2021 10:11 AM CDT Pharmacy Vancomycin [...] but the predicted AUC was 459 @64%. [place] that since patient is younger with good [...] yet. Last BM: 07/06. Activity: Up to [facility] with assist of one. 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 She underwent 3 I&D's at [facility] prior to her transfer. Patient [...] 07/07/2021 7:00 PM UR OT WAITLIST [facility]OT [place] 07/08/2021 8:00 AM Carmencita Li Pt, PT URPT [place] Nathaniel Tinoco MD Orthopaedic Surgery, PGY-4 Plan [...] monitor. Pharmacy-Admission Medication History - Suze Morales, [facility] - 07/06/2021 7:22 PM CDT Admission Medication History Completed by Pharmacy See [facility] Admission Navigator for allergy information, preferred outpatient pharmacy, prior to admission medications and immunization status. Medication History Sources: ??? Pharmacy fill history via [employer] ??? Current medication list from [facility] (pt admitted 06/28-07/06) ??? 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 Added: spironolactone, famotidine, lactulose, magnesium oxide, potassium chloride, senna (per [facility] records, these were started while pt in the hospital, doesn't appear she was on these pilot captain) ??? Deleted: coenzyme-Q, ibuprofen, multivitamin, omeprazole, ondansetron, Miralax, thiamine, vitamin B complex (old Rx, no fill history) ??? Changed: o Gabapentin 100-200 mg bid + 300 mg hs --> 300 mg hs (per [facility] records, has not filled gabapentin pilot captain since 08/16/20) o Venlafaxine XR 150 mg daily --> 300 mg daily (per fill history, [facility] records) Additional Information: ??? Last prescribed dose of buprenorphine was 8 mg SL tid, however per addiction medicine visit notes pt was taking medication differently to make prescription last and using family member's supply at times. At [facility] she was receiving 4 mg SL every 4 hours. Per [place] [employer]: Buprenorphine 8 mg SL tablet filled 05/04/21, [...] Mckenzie naloxone (NARCAN) 4 MG/0.1ML nasal spray [place] 1 spray (4 mg) into one nostril [...] LDA: L side chest PICC. Placed at [facility]. Plan: Continue with care Additional [...] Visit Wound Care Luis Camara DPM [address] [place] [address] (Wo rk) 01/21/2022 PRE VISIT Gastroenterology Landon Warren, *-*HEATHER Barriga RECORDS*-* MD Luis Fernando [address] [place] [phone] (Wo rk) 01/21/2022 Office Visit Gastroenterology Juanis Mckenzie [address] [place] [address] Luis Fernando Miles MD [address] [place] [phone] documented as of this encounter Procedures [...] (ABNORMAL) CRP inflammation (07/23/2021 7:42 AM CDT) [employer] Method Time Signature CRP Inflammation 8.2 (H) 0.0 - 8.0 07/23/2021 UR LABORATOR Y mg/L 8:28 AM CDT Specimen Anatomical Collection Method Collection Time Receive d Time (Source) Location / / Volume Laterality Blood STRUCTURE OF RIGHT VAD(CVC, PICC) / 07/23/2021 7:42 AM 07/23/2021 8:00 UPPER LIMB / Unknown CDT AM CDT Unknown Jaime aRe MD LAB - BLOOD ORDERABLES Performing Organization Address City/State/ZIP Code Phon [place] [address] Care Lab [facility], Room M309 (ABNORMAL) CBC with platelets and differential (07/21/2021 3:12 PM CDT) [employer] Method Time Signature WBC Count 4.4 4.0 [...] City/State/ZIP Code Phon e Number UR LABORATORY [facility] [place] [address] Care Lab [address] [facility], Room M309 Asymptomatic COVID-19 Virus (Coronavirus) by [...] exposure or clinical presentation sugges ts COVID-19. ??[facility] [employer] are certified under the Clinical Laborat ory Improvement Amendments of 1988 (CLIA-88) as qualified to perform moderate and/or high complexity laboratory testing. Jaime Rae MD LAB - MICRO GENERAL ORDERABL ES Performing Organization Address City/State/[facility] Phon [place] [address] Care Lab [address] [facility], Room M309 (ABNORMAL) CRP inflammation (07/19/2021 8:19 AM CDT) [facility] Method Time Signature CRP Inflammation 15.0 [...] - BLOOD ORDERABLES Performing Organization Address [facility] Ph[place] [address] Care Lab [address] [facility], Room M309 (ABNORMAL) CBC with platelets (07/19/2021 8:19 AM CDT) [facility] Method Time Signature WBC Count 4.9 [...] City/State/ZIP Code Ph[place] [address] Care Lab [address] [place] [address], Room M309 Extra Purple Top Tube (07/18/2021 [...] City/State/ZIP Code Ph[place] [address] Care Lab [address] [place] [address], Room M309 (ABNORMAL) CRP inflammation (07/18/2021 7:37 [...] City/State/ZIP Code [place] [address] Care Lab [address] [place] [address], Room M309 XR Chest 1 View (07/17/2021 [...] 11:14 AM CDT) Analysis Performed At [facility] Time Signature SARS CoV2 PCR Negative Negative [...] exposure or clinical presentation sugges ts COVID-19. ??[facility] Laboratories are certified under the Clinical Laborat ory Improvement Amendments of 1988 (CLIA-88) as qualified to perform moderate and/or high complexity laboratory testing. Jaime Rae MD LAB - MICRO GENERAL ORDERABL ES Performing Organization Address City/State/ZIP Code Ph[place] [phone] Care Lab [address] [facility], Room M309 (ABNORMAL) CBC with platelets and differential (07/17/2021 7:36 AM CDT) [facility] gist Method Time Signature WBC Count [...] City/State/ZIP Code Phon e Number UR LABORATORY [facility] [place] [address] Care Lab [address] [facility], Room M309 (ABNORMAL) Comprehensive metabolic panel (07/17/2021 7:36 AM CDT) [facility] Method Time Signature Sodium 139 133 [...] and gender (Paul et al., NE, DOI: 10.1056/[id number]) Specimen Anatomical Collection Method / Collection Time Recei isak Time (Source) Location / Volume Laterality Blood STRUCTURE OF RIGHT Venipuncture / 07/17/2021 7:36 05/3 02/2021 8:08 HAND / Unknown Unknown AM CDT AM CDT Jensen Ulloa MD LAB - BLOOD ORDERABLES Performing Organization Address City/State/ZIP Code [place] [address] Care Lab [address] [place] [address], Room M309 (ABNORMAL) CRP inflammation (07/16/2021 9:08 [...] City/State/ZIP Code [place] [address] Care Lab [address] [place] [address], Room M309 Creatinine (07/16/2021 8:23 AM CDT) P athologist Signature Creatinine 0.66 0.52 - 1.04 07/16/2021 UR LABORATORY mg/dL 9:01 AM CDT GFR Estimate >90 >60 07/16/2021 UR LABORATORY mL/min/1.73 9:01 AM CDT m2 Comment: Effective February 06, 2021 eGF Rcr in adults is calculated using the 2020 CKD-EPI creatinine equation which includ es age and gender (Paul et al., NEJM, DOI: 10.1056/UGAOnj6408874) Specimen Anatomical Collection Method / Collection Time Recei isak Time (Source) Location / Volume Laterality Blood STRUCTURE OF RIGHT Venipuncture / 07/16/2021 8:23 05/3 8:31 HAND / Unknown Unknown AM CDT AM CDT Jaime Rae MD LAB - BLOOD ORDERABLES Performing Organization Address City/[facility] Phon [place] [address] Care Lab [address] [place] [address], Room M309 Extra Purple Top Tube (07/15/2021 [...] [facility]/ZIP Code Phon [place] [address] Care [address] [place] [address], Room M309 Creatinine (07/15/2021 6:09 AM CDT) P athologist Signature Creatinine 0.64 0.52 - 1.04 07/15/2021 UR LABORATORY mg/dL 7:06 AM CDT GFR Estimate >90 >60 07/15/2021 UR LABORATORY mL/min/1.73 7:06 AM CDT m2 Comment: Effective February 06, 2021 eGF Rcr in adults is calculated using the 2020 CKD-EPI creatinine equation which includ es age and gender (Paul et al., NEJ, DOI: 10.1056/KEUHgf5705571) Specimen Anatomical Collection Method / Collection Time Recei isak Time (Source) Location / Volume Laterality Blood STRUCTURE OF LEFT Venipuncture / 07/15/2021 6:09 07/15 6:14 HAND / Unknown Unknown AM CDT AM CDT Jaime Rae MD LAB - BLOOD ORDERABLES Performing Organization Address City/State/ZIP Code Ph[place] [address] Care Lab [address] [facility], Room M309 Vancomycin level (07/15/2021 6:09 AM [...] - BLOOD ORDERABLES Performing Organization Address [facility] Phon [place] [address] Care Lab [address] [place] [address], Room M309 Creatinine (07/14/2021 5:30 AM CDT) P athologist Signature Creatinine 0.62 0.52 - 1.04 07/14/2021 UR LABORATORY mg/dL 6:20 AM CDT GFR Estimate >90 >60 07/14/2021 UR LABORATORY mL/min/1.73 6:20 AM CDT m2 Comment: Effective February 06, 2021 eGF Rcr in adults is calculated using the 2020 CKD-EPI creatinine equation which includ es age and gender (Paul et al., NEJM, DOI: 10.1056/[id number]) Specimen Anatomical Collection Method / Collection Time Recei isak Time (Source) Location / Volume Laterality Blood STRUCTURE OF RIGHT Venipuncture / 07/14/2021 5:30 05/2 09/2021 5:52 UPPER LIMB / Unknown AM CDT AM CDT Unknown Jaime Rae MD LAB - BLOOD ORDERABLES Performing Organization Address City/[facility]/ZIP Code Phon [place] [address] Care Lab [address] [facility], Room M309 (ABNORMAL) CBC with platelets (07/14/2021 5:30 AM CDT) [facility] Method Time Signature WBC Count 4.9 [...] City/State/ZIP Code Phon e Number UR LABORATORY [facility] [place] [address] Care Lab [address] [facility], Room M309 (ABNORMAL) CRP inflammation (07/14/2021 5:30 AM CDT) [facility] Method Time Signature CRP Inflammation 40.0 [...] City/State/ZIP Code Phon e Number UR LABORATORY [facility] [place] [address] Care Lab [address] [facility], Room M309 XR Chest 1 View (07/13/2021 [...] platelets and differential (07/13/2021 5:40 AM CDT) [facility] Method Time Signature WBC Count 4.9 [...] City/State/ZIP Code Ph[place] [address] Care Lab [address] [facility], Room M309 (ABNORMAL) Comprehensive metabolic panel (07/13/2021 5:40 AM CDT) [facility] gist Method Time Signature Sodium 139 [...] and gender (Paul et al., NE, DOI: 10.1056/[id number]) Specimen Anatomical Collection Method / Collection Time Recei isak Time (Source) Location / Volume Laterality Blood STRUCTURE OF RIGHT Venipuncture / 07/13/2021 5:40 05/08/2021 5:55 HAND / Unknown Unknown AM CDT AM CDT Jensen Ulloa MD LAB - BLOOD ORDERABLES Performing Organization Address City/State/ZIP Code Ph[place] [address] [place] [address], [facility] M309 Vancomycin level (07/13/2021 5:40 AM CDT) [...] City/State/ZIP Code Ph[place] [address] Care [address] [place] [address], Room M309 Blood Culture Line, venous (07/12/2021 [...] MICRO GENERAL ORDERABL ES Performing Organization Address City/[facility] Phon e Number UU IDD LABORATORY [facility] [place] [address] Diag. Lab [address] [facility], Room [address]297 Blood Culture Arm, [...] MICRO GENERAL ORDERABL ES Performing Organization Address [facility] Phon e Number UU IDD LABORATORY [facility] [place] [address] Diag. Lab [address] [facility], Room D297 (ABNORMAL) CRP inflammation (07/12/2021 6:57 AM CDT) [facility] Method Time Signature CRP Inflammation 57.0 [...] City/State/ZIP Code Ph[place] [phone] [place] [address], Room M309 (ABNORMAL) CBC with platelets (07/12/2021 6:57 AM CDT) [facility] Method Time Signature WBC Count [...] City/State/ZIP Code Ph[place] [address] [address] [place] [address], Room [address]309 Creatinine (07/12/2021 6:57 AM CDT) P athologist Signature Creatinine 0.57 0.52 - 1.04 07/12/2021 UR LABORATORY mg/dL 7:35 AM CDT GFR Estimate >90 >60 07/12/2021 UR LABORATORY mL/min/1.73 7:35 AM CDT m2 Comment: Effective February 06, 2021 eGF Rcr in adults is calculated using the 2020 CKD-EPI creatinine equation which includ es age and gender (Paul et al., NE, DOI: 10.1056/[id number]) Specimen Anatomical Collection Method / Collection Time Recei isak Time (Source) Location / Volume Laterality Blood STRUCTURE OF RIGHT Venipuncture / 07/12/2021 6:57 05/2 07/2021 7:04 UPPER LIMB / Unknown AM CDT AM CDT Unknown Jaime Rae MD LAB - BLOOD ORDERABLES Performing Organization Address City/State/ZIP Code Phon e Number UR LABORATORY [facility] [place] [address] Care Lab [address] [facility], Room M309 Fungal or Yeast Culture Routine [...] Code Phon e Number UU IDD LABORATORY [facility] [place] [address] Diag. Lab [address] [facility], Room D297 Wound Aerobic Bacterial [...] Code Phon e Number UU IDD LABORATORY [facility] [place] [address] Diag. Lab [address] [facility], Room D297 (ABNORMAL) Anaerobic Bacterial Culture Routine (07/11/2021 6:18 PM CDT) [facility] gist Method Time Signature Culture No [...] Unknown Collection / CDT AM CDT Unknown Msoes Clinton MD LAB - MICRO GENERAL ORDER JEFFERY Performing Organization Address City/[facility]/ZIP Code Phon e Number UU IDD LABORATORY [facility] [place] [address] Diag. Lab [address] [facility], Room D297 Extra Purple Top [...] City/State/ZIP Code Ph[place] [address] Care Lab [facility], Room M309 Creatinine (07/11/2021 9:09 AM CDT) P athologist Signature Creatinine 0.58 0.52 - 1.04 07/11/2021 UR LABORATORY mg/dL 9:35 AM CDT GFR Estimate >90 >60 07/11/2021 UR LABORATORY mL/min/1.73 9:35 AM CDT m2 Comment: Effective February 06, 2021 eGF Rcr in adults is calculated using the 2020 CKD-EPI creatinine equation which includ es age and gender (Paul et al., NEJM, DOI: 10.1056/[id number]) Specimen Anatomical Collection Method / Collection Time Recei isak Time (Source) Location / Volume Laterality Blood STRUCTURE OF RIGHT Venipuncture / 07/11/2021 9:09 05/2 06/2021 9:16 UPPER LIMB / Unknown AM CDT AM CDT Unknown Jaime Rae MD LAB - BLOOD ORDERABLES Performing Organization Address City/State/ZIP Code Phon [place] [address] Care Lab [facility], Room M309 (ABNORMAL) CBC with platelets and [...] Number UR LABORATORY [place] [address] Care Lab [address] [facility], Room M309 (ABNORMAL) CRP inflammation (07/10/2021 7:26 AM CDT) [facility] gist Method Time Signature CRP Inflammation 59.0 [...] City/State/ZIP Code Phon [place] [address] [address] [place] [address], Room M309 (ABNORMAL) CRP inflammation (07/10/2021 5:25 AM CDT) [facility] Center Method Time Signature CRP Inflammation 60.0 [...] City/State/ZIP Code Phon [place] [address] [address] [place] [address], Room M309 (ABNORMAL) CBC with platelets (07/10/2021 5:25 AM CDT) [facility] Method Time Signature WBC Count 8.2 [...] City/State/ZIP Code Phon [place] [address] Care Lab [address] [facility], Room M309 (ABNORMAL) UA with Microscopic reflex to Culture (07/09/2021 5:33 PM CDT) [facility] Method Time Signature Color Urine Yellow Colorless, 07/09/2021 UR LABORATORY Straw, 7:00 PM CDT Light Yellow, Yellow Appearance Urine Clear Clear 07/09/2021 UR LABORATOR Y 7:00 PM CDT Glucose Urine Negative Negative 07/09/2021 UR LABORATORY mg/dL 7:00 PM CDT Bilirubin Urine Negative Negative 07/09/2021 UR LABORATORY 7:00 PM CDT Ketones Urine Negative Negative 07/09/2021 UR LABORATORY mg/dL 7:00 PM CDT Specific [place] 1.018 1.003 - 07/09/2021 UR LABORATOR Y [...] City/State/ZIP Code Ph[place] [address] Care Lab [address] [facility], Room M309 Blood Culture Arm, Right (07/09/2021 [...] MICRO GENERAL ORDERABL ES Performing Organization Address City/[facility]/ZIP Code Phon e Number UU IDD LABORATORY [facility] [place] [address] Diag. Lab [address] [facility], Room D297 Blood Culture Arm, [...] MICRO GENERAL ORDERABL ES Performing Organization Address [facility] Phon e Number UU IDD LABORATORY [facility] [place] [address] Diag. Lab [address] [facility], Room D297 (ABNORMAL) CRP inflammation (07/09/2021 12:22 PM CDT) [facility] Method Time Signature CRP Inflammation 43.0 [...] [facility]/ZIP Code Phon e Number UR LABORATORY [facility] [place] [address] Care Lab [address] [facility], Room M309 ALT (07/09/2021 12:22 PM CDT) [...] City/State/ZIP Code Phon e Number UR LABORATORY [facility] [place] [address] Care Lab [address] [facility], Room M309 (ABNORMAL) Basic metabolic panel (07/09/2021 [...] and gender (Paul et al., NEJM, DOI: 10.1056/[id number]) Specimen Anatomical Collection Method Collection Time Receive d Time (Source) Location / / Volume Laterality Blood STRUCTURE OF LEFT VAD(CVC, PICC) / 07/09/2021 12:22 UPPER LIMB / Unknown PM CDT 12:30 PM CDT Unknown Jaime Rae MD LAB - BLOOD ORDERABLES Performing Organization Address City/State/ZIP Code Phon [place] [phone] [place] [address], Room M309 (ABNORMAL) CBC with platelets (07/09/2021 [...] City/State/ZIP Code Ph[place] [phone] Care Lab [address] [place] [address], Room M309 ECHO COMPLETE (07/08/2021 1:04 PM CDT) P athologist Signature LVEF 55-60% CARDIOLOGY RESULTS Anatomical Region Laterality Modality Echocardiography Specimen (Source) Anatomical Collection Method Collection Time Re ceived Time Location / / Volume Laterality 07/08/2021 12:07 PM CDT Narrative 07/08/2021 2:15 PM CDT [id number]^BUTCH^JAIME [facility] Echocardiography Laboratory [address] [place] [address] Name: DEANN KING : 1980 Study Date: 07/08/2021 12:07 PM Age: 40 yrs Gender: Female [place] [facility] [place] For Study: Endocarditis [...] Procedure Note Matheus Jo MD - 07/08/2021 [id number]^BUTCH^JAIME [facility] Echocardiography Laboratory [address] [place] [address] Name: DEANN KING : 1980 Study Date: 07/08/2021 12:07 PM Age: 40 yrs Gender: Female Patient [place] [facility] [place] Reason For Study: Endocarditis [...] [facility]/ZIP Code Phon [place] [address] Care Lab [address] [place] [address], Room M309 (ABNORMAL) Erythrocyte sedimentation rate auto [...] City/State/ZIP Code Phon [place] [address] Care Lab [address] [place] [address], Room M309 (ABNORMAL) CRP inflammation (07/08/2021 7:14 [...] City/State/ZIP Code Ph[place] [address] Care [address] [place] [address], Room M309 US Abdomen Complete (07/07/2021 3:33 [...] Code Phon e Number UU IDD LABORATORY [facility] [place] [address] Diag. Lab [address] [facility], Room D297 Blood Culture Line, [...] Code Phon e Number U[facility] IDD LABORATORY [facility] [place] [address] Diag. Lab [address] [facility], Room D297 (ABNORMAL) Phosphorus (07/07/2021 [...] City/State/ZIP Code Phon e Number UR LABORATORY [facility] [place] [address] Care Lab [address] [facility], Room M309 Magnesium (07/07/2021 12:35 PM CDT) [...] City/State/ZIP Code Phon [place] [phone] [place] [address], Room M309 (ABNORMAL) CBC with platelets (07/07/2021 12:35 PM CDT) [facility] gist Method Time Signature WBC Count [...] City/State/ZIP Code Phon [place] [phone] Care Lab [address] [facility], Room M309 (ABNORMAL) Comprehensive metabolic panel (07/07/2021 12:35 PM CDT) [facility] Method Time Signature Sodium 137 133 [...] and gender (Paul et al., NEJM, DOI: 10.1056/[id number]) Specimen Anatomical Collection Method Collection Time Receive d Time (Source) Location / / Volume Laterality Blood VENOUS LINE / VAD(CVC, PICC) / 07/07/2021 12:35 2021 1:01 Unknown Unknown PM CDT PM CDT Nathaniel Tinoco MD LAB - BLOOD ORDERABLES Performing Organization Address City/State/[facility] Code Phon e Number UR LABORATORY [facility] [place] [address] Care Lab [address] [facility], Room M309 (ABNORMAL) Tissue Aerobic Bacterial Culture Routine (07/07/2021 8:43 AM CDT) [facility] Method Time Signature Culture 1+ Staphylococcus [...] Susceptibility testing requested by Dr. Fraga Pager [phone]. This specimen was received on a swab. [...] MICRO GENERAL ORDER JEFFERY Performing Organization Address City/[facility] Code Phon e Number UU IDD LABORATORY [facility] [place] [address] Diag. Lab [address] [facility], Room D297 Anaerobic Bacterial Culture [...] MICRO GENERAL ORDER JEFFERY Performing Organization Address City/[facility] Phon e Number UU IDD LABORATORY [facility] [place] [address] Diag. Lab [address] [facility], Room D297 Tissue Aerobic Bacterial Culture [...] MICRO GENERAL ORDER JEFFERY Performing Organization Address City/[facility]/ZIP Code Phon e Number [facility] IDD LABORATORY [facility] [place] [address] Diag. Lab [address] [facility], Room D297 Anaerobic Bacterial Culture Routine (07/07/2021 8:42 AM CDT) [facility] Method Time Signature Culture No anaerobic [...] MICRO GENERAL ORDER JEFFERY Performing Organization Address City/[facility] Phon e Number U[facility] IDD LABORATORY [facility] [place] [address] Diag. Lab [address] [facility], Room D297 Wound Aerobic Bacterial [...] Code Phon e Number [facility] ID[facility]ORATORY [facility] [place] [address] Diag. Lab [address] [facility], Room D297 Anaerobic Bacterial Culture Routine (07/07/2021 8:41 AM CDT) [facility] Method Time Signature Culture No anaerobic [...] Code Phon e Number [facility] IDD LABORATORY [facility] [place] [address] Diag. Lab [address] [facility], Room D297 Asymptomatic COVID-19 Virus (Coronavirus) by PCR Nasopharyngeal (07/06/2021 6:11 PM CDT) Analysis Performed At Patho logist Time Signature SARS CoV2 PCR Negative Negative 07/06/2021 UR LABORATORY 7:33 PM CDT Comment: NEGATIVE: SARS-CoV-2 (COVID-19) RNA not detected, presumed negative. Specimen Anatomical Location / Collection Method Collection Ejff e Received Time (Source) Laterality / Volume [...] or clinical presentation sugges ts COVID-19. ??[facility] are certified under the Clinical Laborat ory Improvement Amendments of 1988 (CLIA-88) as qualified to perform moderate and/or high complexity laboratory testing. Ernesto Martínez MD LAB - MICRO GENERAL ORDERABL ES Performing Organization Address City/State/ZIP Code Phon e Number UR LABORATORY [facility] [place] [address] Care Lab [address] [facility], Room M309 Blood Culture Arm, Left (07/06/2021 [...] Code Phon e Number UU IDD LABORATORY [facility] [place] [address] Diag. Lab [address] [facility], Room D297 (ABNORMAL) Iron and [...] City/State/ZIP Code Phon e Number UR LABORATORY [facility] [place] [phone] Care Lab [address] [facility], Room M309 (ABNORMAL) Hepatitis C RNA, Quantitative by PCR (07/06/2021 3:34 PM CDT) [facility] Method Time Signature Hepatitis C RNA [...] Code Phon e Number U[facility] IDD LABORATORY [facility] [place] [phone] Diag. Lab [address] [facility], Room D297 Adult Type and Screen (07/06/2021 3:34 PM CDT) [facility] Method Time Signature ABO/RH(D) B POS 07/06/2021 UR BLOOD 2:15 PM CDT BANK Antibody Negative Negative 07/06/2021 UR BLOOD Screen 2:15 PM CDT BANK SPECIMEN [id number] 07/06/2021 UR BLOOD EXPIRATION 2:15 PM CDT BANK DATE Specimen Anatomical Collection Method / Collection Time Recei isak Time (Source) Location / Volume Laterality Blood STRUCTURE OF RIGHT Venipuncture / 07/06/2021 3:34 05/2 4:06 UPPER LIMB / Unknown PM CDT PM CDT Unknown Jah Thompson MD LAB - BLOOD BANK TEST ORDER Performing Organization Address City/State/ZIP Code Phon e Number UR BLOOD BANK [facility] [place] [address] Components Lab [address] [facility], Room M301 (ABNORMAL) Hepatic panel (07/06/2021 3:34 [...] City/State/ZIP Code Phon e Number UR LABORATORY [facility] [place] [phone] Care Lab [address] [facility], Room M309 Blood Culture Arm, Right (07/06/2021 [...] Code Phon e Number UU IDD LABORATORY [facility] [place] [address] Diag. Lab [address] [facility], Room D297 Partial thromboplastin time [...] [facility]/ZIP Code Phon [place] [address] Care Lab [address] [facility], Room M309 (ABNORMAL) INR (07/06/2021 3:34 PM CDT) P athologist Signature INR 1.39 (H) 0.85 - 1.15 07/06/2021 UR LABORATORY 4:23 PM CDT Comment: Some International Normalized R atio (INR) results performed at the [facility] Acute Care Lab for patients 6 [...] City/State/ZIP Code Phon [place] [address] Care [address] [place] [address], Room M309 (ABNORMAL) Erythrocyte sedimentation rate auto (07/06/2021 3:34 PM CDT) [facility] Method Time Signature Erythrocyte 97 (H) [...] City/State/ZIP Code Phon [place] [address] Care Lab [address] [place] [address], Room M309 (ABNORMAL) CRP inflammation (07/06/2021 3:34 PM CDT) [facility] Method Time Signature CRP Inflammation 65.0 [...] City/State/ZIP Code Phon e [place] [address] Care Lab [address] [place] [address], Room M309 (ABNORMAL) Basic metabolic panel (07/06/2021 3:34 PM CDT) [facility] Method Time Signature Sodium 136 133 [...] and gender (Paul et al., NEJ, DOI: [id number]) Specimen Anatomical Collection Method / Collection Time Recei isak Time (Source) Location / Volume Laterality Blood STRUCTURE OF RIGHT Venipuncture / 07/06/2021 3:34 05/ 4:06 UPPER LIMB / Unknown PM CDT PM CDT Unknown Jah Thompson MD LAB - BLOOD ORDERABLES Performing Organization Address City/State/ZIP Code Phon e Number UR LABORATORY [facility] [place] [address] Care Lab [address] [facility], Room M309 (ABNORMAL) CBC with platelets (07/06/2021 3:34 PM CDT) [facility] Method Time Signature WBC Count 5.7 [...] City/State/ZIP Code Ph[place] [address] Care Lab [address] [facility], Room M309 documented in this encounter Visit [...] or analgesic side effects. Hold while on SOCIAL WORKER PSYCHIATRIC or with regular IV opioid dosing. Given [...] 162 mg, Oral, DAILY, First dose on [place] 07/08/21 at 0800, DO NOT C DANIELS. [...] mg 0821 (Given - Pro vider: Vin Smis RN)1504 (Given - Provider: Vin Sims, RN) [...] leora lgesic side effects. Hold while on SOCIAL WORKER PSYCHIATRIC or with regular IV opioid dosing. polyethylene [...] mL 10-40 mL, Intracatheter, EVERY 1 HOUR MS N, other, to lock EACH CVC - [...] documented as of this encounter Care Teams Transfer Professor Relationship Specialty Start Date End Date Juanis Mckenzie PCP - General Addiction Medicine 06/29/[address] [place] [phone] Deann Pina APRN CLINICAL REHAB SPECIALIST Assigned PCP 02/25/[address] [place] [address] documented as of this encounter
--- OUTSIDE RECORDS SUMMARY | 2021-12-14 16:18 | XMS_ITS | Encounter Summary ---
:1980 Author Organization [place] Address [address] [place] [address] Care Team Providers Name Role Phone Clinic, [facility] Primary Care Provide r YovaniStephani APRN DIRECTOR OF COUNSELING Unavailable [phone] Encounter Details Date Type Department Care [...] Date Recorded Female 01/14/2020 10:57 AM SENIOR NETWORK SECURITY ENGINEER COVID-19 Exposure Response Date Recorded In the last month, have you been in contact with No / Unsure 07/12/2020 11:10 AM CDT someone who was confirmed or suspected to have Coronavirus / COVID-19? documented as of this encounter Plan of Treatment Upcoming Encounters Date Type Specialty Care Team Description 12/20/2021 Office Visit Wound Care Luis Camara DPM [address] [place] [address] (Wo rk) 01/21/2022 PRE VISIT Gastroenterology Landon Warren, *-*WANDAIN G RECORDS*-* MD Luis Fernando [address] [facility] [address] [place] [address] (Wo rk) 01/21/2022 Office Visit Gastroenterology Juanis Levi [address] [place] [address] Luis Fernando Miles MD [address] [facility] [place], [place] [phone] documented as of this encounter Visit Diagnoses Not on filedocumented in this encounter Additional Health Concerns Assessment Noted Time PHQ-9 Depression Total Score: 6 12/27/2019 9:38 AM SENIOR NETWORK SECURITY ENGINEER documented as of this encounter Care Teams [facility] Relationship Specialty Start Date End Date Clinic, [facility] PCP - General 01/20/18 06/28/[address] [place] [address] Stephani Pina APRN DIRECTOR OF COUNSELING Assigned PCP 01/30/20 12/30/[address] [place] [address] documented as of this encounter
--- OUTSIDE RECORDS SUMMARY | 2021-12-14 16:18 | XMS_ITS | Encounter Summary ---
:1980 Author Organization [place] Address [address] [place] [address]. [place] [address] Care Team Providers Name Role Phone Stephani Pina APRN PUBLIC POLICY MANAGER Unavailable [phone] Juanis Levi Primary Care Provider Reason for Visit Auth/Cert Specialty Diagnoses / Procedures Referred By Contact Refer red To Contact Med Surg Diagnoses Complicated Osteomyelitis [facility] [address] [place] [address] Phone: Fax: Referral ID Status Reason Start Date Expiration Date Visits Requ ested Visits Authorized [id number] 1 1 Encounter Details Date Type Department Care Team Description 07/07/2021 Anesthesia Event [facility] Roosevelt Doan MD [address] [place] [address] PeriOp Services Victoria Christy MD [address] [place] [address] [place] [address] Anesthesia Record Procedure Summary Procedure Name Responsible Anesthesia Start Anesthesia Stop Anesthesiologist Time Time IRRIGATION AND Roosevelt Doan MD 07/07/21 0757 07/07/21 0934 DEBRIDEMENT, FOOT and ankle, wound vac exchange (Right: Foot) Events Date Time Event Comment 07/07/2021 0647 MILITARY 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 TECHNICIAN Ready for Procedure 0757 An Start 0758 [...] Dickinson Fellegy, Mattilyn A, Time: 821 (created TECHNICAL WRITER AND EDITOR MILITARY 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 TECHNICIAN FARZANA MILITARY 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 TECHNICIAN via procedure documentation); Airway Type: Standard LMA; Mask Ventilation: 0; LMA Size: 4; Airway Brand: Air-Q; Attempts: 1 Packing 07/07/21; 0903; 07/07/21 0903 by 07/23/21 1655 b y Right, Lateral; Monica Vallejo RN Inpatient, Nurse Ankle; Other (Comment) (3 pieces black wound vac sponge); 3; 07/23/21; 1655 Incision/Surgical Site 07/07/21; 0912; 07/07/21 0912 by 08/15/21 1200 by Right; Ankle; [facility] Vallejo [facility] 08/15/21; Sadaf J RN documented in this encounter Social History Tobacco Use Types Packs/Day Years Used Date Smoking Tobacco: Every Day Cigarettes 0.3 10 Smokeless Tobacco: Never Comments: 5-8 cigarettes a day Alcohol Use Standard Drinks/Week Comments Not Currently 0 (1 standard drink = 0.6 oz pure alcoho l) sober since 08/2020 Sex Assigned at Date Recorded Female 01/14/2020 10:57 AM SERVICE 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 TAXICAB COORDINATOR SURGERY ??? ORTHOPEDIC SURGERY ??? THORACIC SURGERY [...] and realistic alternatives discussed. Questions answered and patient/insurance follow up representative(s) expressed understanding. - Discussed: - Discussed [...] Care Transfer Note - Irene Dickinson APRN MILITARY 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 TECHNICIAN - 07/07/2021 9:39 AM CDT Patient: Stephani [...] Wound Care Luis Camara, [place] [address] [place] [address] (Wo rk) 01/21/2022 PRE VISIT Gastroenterology Landon Warren, *-*INCOMIN G RECORDS*-* MD Luis Fernando [address] [place] [address] (Wo rk) 01/21/2022 Office Visit Gastroenterology Juanis Levi [address] [place] [phone] Luis Fernando Miles MD [address] [place] [address] documented as of this encounter Procedures Procedure [...] during procedure : OR Staff - ? MILITARY 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 TECHNICIAN: Irene Dickinson APRN C RNA ? Performed By: MILITARY 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 TECHNICIAN Consent for Airway ? Urgency: elective Indications [...] or analgesic side effects. Hold while on GENETICIST or with regular IV opioid dosing Given [...] documented as of this encounter Care Teams Shoe Cleaner Relationship Specialty Start Date End Date Juanis Levi PCP - General Addiction Medicine 06/29/21 [address] [place] [phone] Stephani Pina APRN PUBLIC POLICY MANAGER Assigned PCP 02/25/[address] [place] [address] [address] [place] [address] documented as of this encounter
--- OUTSIDE RECORDS SUMMARY | 2021-12-14 16:18 | XMS_ITS | Encounter Summary ---
:1980 Author Organization [place] Address [address] [place] [address] Care Team Providers Name Role Phone Clinic, [facility] Primary Care Provide r YovaniStephani APRN GROCERY ASSOCIATE Unavailable [phone] Encounter Details Date Type Department Care [...] at Date Recorded Female 01/14/2020 10:57 AM REINSPECTOR COVID-19 Exposure Response Date Recorded In the last month, have you been in contact with No / Unsure 08/16/2020 11:17 AM CDT someone who was confirmed or suspected to have Coronavirus / COVID-19? documented as of this encounter Plan of Treatment Upcoming Encounters Date Type Specialty Care Team Description 12/20/2021 Office Visit Wound Care Luis Camara DPM [address] [place] [address] (Wo rk) 01/21/2022 PRE VISIT Gastroenterology Landon Warren, *-*WANDAIN G RECORDS*-* MD Luis Fernando [address] [facility] [address] [place] [address] (Wo rk) 01/21/2022 Office Visit Gastroenterology Juanis Levi [address] [place] [address] Luis Fernando Miles MD [address] [facility] [place], [place] [address] documented as of this encounter Visit Diagnoses Not on filedocumented in this encounter Additional Health Concerns Assessment Noted Time PHQ-9 Depression Total Score: 6 12/27/2019 9:38 AM REINSPECTOR documented as of this encounter Care Teams Labor Training Manager Relationship Specialty Start Date End Date Clinic, [facility] PCP - General 01/20/18 06/28/[address] [place] [address] Stephani Pina APRN GROCERY ASSOCIATE Assigned PCP 01/30/20 12/30/[address] [place] [address] documented as of this encounter
--- OUTSIDE RECORDS SUMMARY | 2021-12-14 16:18 | XMS_ITS | Encounter Summary ---
:1980 Author Organization [place] Address [address] [place] [address] Care Team Providers Name Role Phone Clinic, [facility] Primary Care Provide r Stephani Pina Kim [facility] ASST Unavailable [phone] Encounter Details Date Type Department Care [...] at Date Recorded Female 01/14/2020 10:57 AM WREATH MACHINE TENDER COVID-19 Exposure Response Date Recorded In the last month, have you been in contact with No / Unsure 10/25/2020 10:49 AM CDT someone who was confirmed or suspected to have Coronavirus / COVID-19? documented as of this encounter Plan of Treatment Upcoming Encounters Date Type Specialty Care Team Description 12/20/2021 Office Visit Wound Care Luis Camara DPM [address] [place] [address] (Reinaldo molina) 01/21/2022 PRE VISIT Gastroenterology Landon Warren, *-*WANDAIN G RECORDS*-* MD Luis Fernando [address] [address] (Wo rk) 01/21/2022 Office Visit Gastroenterology Juanis Levi [address] [place] [address] Luis Fernando Miles MD 516 [facility] [address] [place], [place] [address] documented as of this encounter Visit Diagnoses Not on filedocumented in this encounter Additional Health Concerns Assessment Noted Time PHQ-9 Depression Total Score: 6 12/27/2019 9:38 AM WREATH MACHINE TENDER documented as of this encounter Care Teams Laundry Operator Relationship Specialty Start Date End Date Clinic, [facility] PCP - General 01/20/18 06/28/[address] [place] [address] Stephani Pina APRN LAB ASST Assigned PCP 01/30/20 12/30/20 [facility] [address] [place] [address] documented as of this encounter
--- OUTSIDE RECORDS SUMMARY | 2021-12-14 16:18 | XMS_ITS | Encounter Summary ---
:1980 Author Organization [place] Address [address] [facility] [address] Care Team Providers Name Role Phone Clinic, [facility], Located Within [facility] Primary Care Provide r Stephani Pina APRN PARKING LOT SIGNALER Unavailable [phone] Juanis Levi Primary Care Provider Elsa Yeh RN Unavailable Unavailable Rogelio Treadwell MD Unavailable [phone] Luis Camara DPM Unavailable [phone] Camryn Christina MD Unavailable Sintia Lange PA-C Unavailable Luis Fernando Miles MD Unavailable [phone] Reason for Visit Reason Comments Medication Refill Encounter Details Date Type Department Care Team Description 02/27/[address] [facility] Reymundo Sifuentes MD Medication Refill [place] [address] [place] [address] [place] [phone] Social History Tobacco Use Types Packs/Day Years Used Date Smoking Tobacco: Every Day Cigarettes 0.3 10 Smokeless Tobacco: Never Comments: 5-8 cigarettes a day Alcohol Use Standard Drinks/Week Comments Not Currently 0 (1 standard drink = 0.6 oz pure alcoho l) sober since 08/2020 Sex Assigned at Date Recorded Female 01/14/2020 10:57 AM [employer] documented as of this encounter Miscellaneous Notes [...] Solano RN on 02/27/2021 at 4:18 PM [employer] documented in this encounter Plan of Treatment Upcoming Encounters Date Type Specialty Care Team Description 12/20/2021 Office Visit Wound Care Luis Camara, DPM [address] [place], [place] [phone] (Reinaldo molina) 01/21/2022 PRE VISIT Gastroenterology Landon Warren, *-*WANDAIN G RECORDS*-* MD Luis Fernando [address] [place] [address] (Reinaldo molina) 01/21/2022 Office Visit Gastroenterology Juanis Levi [address] [place] [address] Luis Fernando Miles MD [address] [place] [address] documented as of this encounter Visit Diagnoses Diagnosis Opioid use disorder, severe, in sustaine d remission, on maintenance therapy (H) documented in this encounter Additional Health Concerns Infection Onset Date Last Indicated Resolved Time MRSAComment: Added from external infection. 11/07/201406/18 Assessment Noted Time PHQ-9 Depression Total Score: 2 12/15/2020 1:07 PM CDT documented as of this encounter Care Teams Asbestos Cement Sheet Supervisor Relationship Specialty Start Date End Date Clinic, [facility] PCP - General 01/20/[address] [phone] Juanis Levi PCP - General Addiction Medicine 06/29/21 [address] [place] [address] Stephani Pina, Assigned PCP 02/25/21 DISPLAY MANAGER PARKING LOT SIGNALER [address] [place], [place] [address] Elsa Yeh, Registered Nurse Infectious Diseases 07/25/21 RN Rogelio Treadwell Assigned Musculoskeletal 08/04/21 MD August Provider 9 [place], [place] [address] Luis Camara MD Podiatry 08/16/21 CALVIN Burnett [address] [place], [place] [address] Camryn Christina Assigned Surgical 09/01/21 09/07/21 MD Lexie Provider [address] [facility] 195 [place], [place] [address] Sintia Lange PA-C Assigned Surgical 09/08/[address] 4TH Provider FLOOR [place], [place] [address] Landon Warren MD Gastroenterology 11/21/21 MD Luis Fernando [address] [place] [address] [address] [place], [place] [phone] documented as of this encounter
--- OUTSIDE RECORDS SUMMARY | 2021-12-14 16:18 | XMS_ITS | Encounter Summary ---
:1980 Author Organization [place] Address [address] [facility] [place] [address] Care Team Providers Name Role Phone Clinic, [facility] Primary Care Provide r Stephani Pina SOCIAL MEDIA MARKETER NETWORK ANNOUNCER Unavailable [phone] Encounter Details Date Type Department Care Team Description 03/12/2021 Office Visit [facility] Edgar Alfredo us e disorder, Clinic Ashly Gauthier MD severe, in sustained [address] [place] remission, on [address] 700 maintenance therapy [place], [place] (H) (Prim jaime Dx) [phone] Social History Tobacco Use Types Packs/Day Years Used Date Smoking Tobacco: Every Day Cigarettes 0.3 10 Smokeless Tobacco: Never Comments: 5-8 cigarettes a day Alcohol Use Standard Drinks/Week Comments Not Currently 0 (1 standard drink = 0.6 oz pure alcoho l) sober since 08/2020 Sex Assigned at Date Recorded Female 01/14/2020 10:57 AM FLIGHT OPERATIONS INSPECTOR COVID-19 Exposure Response Date Recorded In the last month, have you been in contact with No / Unsure 03/05/2021 9:18 AM FLIGHT OPERATIONS INSPECTOR someone who was confirmed or suspected to have Coronavirus / COVID-19? documented as of this encounter Progress Notes Edgar Alfredo MD - 03/12/2021 9:20 AM CST NO SHOW HT OPERATIONS INSPECTOR documented in this encounter Plan of Treatment Upcoming Encounters Date Type Specialty Care Team Description 12/20/2021 Office Visit Wound Care [place] Luis Lex, DPM [address] [place], [place] [address] (Wo rk) 01/21/2022 PRE VISIT Gastroenterology Landon Warren, *-*INCOMIN G RECORDS*-* MD Luis Fernando 6 [facility] 2A [place], [place] [address] (Wo rk) 01/21/2022 Office Visit Gastroenterology Juanis Levi [address] [place] [phone] Luis Fernando Miles MD [address] [place] [address] [address] [place], [place] [address] documented as of this encounter Visit Diagnoses Diagnosis Opioid use disorder, severe, in sustaine d remission, on maintenance therapy (H) - Primary documented in this encounter Additional Health Concerns Assessment Noted Time PHQ-9 Depression Total Score: 2 12/15/2020 1:07 PM CDT documented as of this encounter Care Teams Roving Inspector Relationship Specialty Start Date End Date Clinic, [facility] Medical PCP - General 01/20/18 06/28/[address] [place] [address] Stephani Pina, SOCIAL MEDIA MARKETER NETWORK ANNOUNCER Assigned PCP 02/25/[address] [place] [address] documented as of this encounter
--- OUTSIDE RECORDS SUMMARY | 2021-12-14 16:18 | XMS_ITS | Encounter Summary ---
:1980 Author Organization [place] Address [address] [facility] [place] [address] Care Team Providers Name Role Phone Clinic, [facility] Primary Care Provide r Stephani Pina LABOR CUSTODIAN EMPLOYMENT OFFICE CLERK Unavailable Encounter Details Date Type Department Care Team Description 02/27/2021 Office Visit [facility] Edgar Alfredo us e disorder, Clinic Ashly Gauthier MD severe, in sustained [address] [place] remission, on [address] 700 maintenance therapy [place], [place] (H) (Prim jaime Dx) [phone] Social History Tobacco Use Types Packs/Day Years Used Date Smoking Tobacco: Every Day Cigarettes 0.3 10 Smokeless Tobacco: Never Comments: 5-8 cigarettes a day Alcohol Use Standard Drinks/Week Comments Not Currently 0 (1 standard drink = 0.6 oz pure alcoho l) sober since 08/2020 Sex Assigned at Date Recorded Female 01/14/2020 10:57 AM MANAGING PARTNER [employer] documented as of this encounter Progress Notes Edgar Alfredo MD - 02/27/2021 9:15 AM CST NO SHOW GING PARTNER [employer]ITAL CONTENT [employer] [place] documented in this encounter Plan of Treatment Upcoming Encounters Date Type Specialty Care Team Description 12/20/2021 Office Visit Wound Care Luis Camara, CALVIN [address] [place], [place] [address] (Wo rk) 01/21/2022 PRE VISIT Gastroenterology Landon Warren, *-*INCOMIN G RECORDS*-* MD Luis Fernando [address] [facility] [address] [place], [place] [phone] (Wo rk) 01/21/2022 Office Visit Gastroenterology Juanis Levi [address] [place] [phone] Luis Fernando Miles MD [address] [address] documented as of this encounter Visit Diagnoses Diagnosis Opioid use disorder, severe, in sustaine d remission, on maintenance therapy (H) - Primary documented in this encounter Additional Health Concerns Assessment Noted Time PHQ-9 Depression Total Score: 2 12/15/2020 1:07 PM CDT documented as of this encounter Care Teams Extrusion Bender Relationship Specialty Start Date End Date Clinic, [facility] PCP - General 01/20/18 06/28/[address] [place] [phone] Stephani Pina, LABOR CUSTODIAN EMPLOYMENT OFFICE CLERK Assigned PCP 02/25/[address] [place] [address] documented as of this encounter
--- OUTSIDE RECORDS SUMMARY | 2021-12-14 16:19 | XMS_ITS | Encounter Summary ---
:1980 Author Organization [place] Address [address] [facility] [place] [address] Care Team Providers Name Role Phone Clinic, [facility] Primary Care Provide r Tatyana Haas APRN SHIPPING RECEIVING CLERK Unavailable [phone] Reason for Referral Mental Health Outpatient (Routine) - Closed Specialty Diagnoses / Procedures Referred By Contact Refer red To Contact Diagnoses Moderate major depression (H) Current every day smoker Uncomplicated opioid dependence (H) Stephani Pina APRN CNP [address] [place], [place] [address] Referral ID Status Reason Start Date Expiration Date Visits Requ ested Visits Authorized [id number] Closed 01/28/2020 01/27/2021 1 1 ASSEMBLER WOOD Reason for Visit Reason Comments Establish Care Encounter Details Date Type Department Care Team Description 12/27[facility] Moderate major depression (H) (Primary Dx); Clinic Ashly Alvarez APRN CNP Alcohol abuse, continuous; [address] Current every day smoker; [address] [place] [address] Uncomplicated opioid dependence (H) [place] [address] [phone] Social History Tobacco Use Types Packs/Day Years Used Date Smoking Tobacco: Every Day Cigarettes 0.3 10 Smokeless Tobacco: Never Comments: 5-8 cigarettes a day Alcohol Use Standard Drinks/Week Comments Not Currently 0 (1 standard drink = 0.6 oz pure alcoho l) sober 16 days Sex Assigned at Date Recorded Female 01/14/2020 10:57 AM TOY ASSEMBLER WOOD COVID-19 Exposure Response Date Recorded In the last month, have you been in contact with No / Unsure 01/11/2020 8:00 PM TOY ASSEMBLER WOOD someone who was confirmed or suspected to have Coronavirus / COVID-19? documented as of this encounter Patient Instructions Patient InstructionsYovani Stephanidelon Alvarez, FARZANA SHIPPING RECEIVING CLERK - 12/27/2019 9:40 AM TOY ASSEMBLER WOOD Images from the original note were not [...] or use alcohol to avoid such symptoms. [employer] last reviewed this educational content on 03/20/2016 ?? [id number] [employer]). [address] [place] [address]. All rights reserved. This information is not [...] manage those feelings. ?? Community reinforcement approach (RADIO REPORTER). This therapy uses vouchers help you follow [...] encourage you to drink or use drugs.? [place] support groups. These groups are run voluntarily [...] behavioral change through participation in 12-step programs. [employer] last reviewed this educational content on 03/20/2016 ?? [id number] [employer]). [address] [place] [address], [place] [address]. All rights reserved. This information is not [...] you can. Go to a movie, ballgame, church service, or social event. Talk openly with [...] can cause other physical and emotional problems. [employer] last reviewed this educational content on 01/17/2019 ?? [phone] [employer] ([employer]). [address] [place] [address]. All rights reserved. This information is not intended as a substitute for professional medical care. Always follow your healthcare professional's instructions. ASSEM[employer] documented in this encounter Progress Notes Stephani [...] be resent to: Send to e-mail at: [email or web address] Will anyone else be joining your video [...] follow-ups on file. Stephani Pina APRN CNP [facility] Video-Visit Details Type of service: Video Visit Video End Time:10:08 AM Originating Location (pt. Location): Home Distant Location (provider location): [facility] Platform used for Video Visit: [employer] ASSEMBLER WOOD documented in this encounter Plan of Treatment Upcoming Encounters Date Type Specialty Care Team Description 12/20/2021 Office Visit Wound Care Luis Camara DPM [address] [place] [address] (Wo rk) 01/21/2022 PRE VISIT Gastroenterology Landon Warren, *-*WANDAIN G RECORDS*-* MD Luis Fernando [address] [facility] [place], [place] [address] (Wo rk) 01/21/2022 Office Visit Gastroenterology Juanis Levi [address]50 [place] [phone] Luis Fernando Miles MD [address] [place], [place] [address] [address] [place], [place] [address] Scheduled Referrals Name Type Priority Associated Diagnoses Order S [facility] REFERRAL - Referral Routine Moderate major [...] Depression Total Score: 6 12/27/2019 9:38 AM TOY ASSEMBLER WOOD documented as of this encounter Care Teams Oyster Cultivator Relationship Specialty Start Date End Date Clinic, [facility] PCP - General 01/20/18 06/28/21 [facility] [place] [address] Tatyana Haas, INDUSTRIAL MAINTENANCE REPAIRER HELPER SHIPPING RECEIVING CLERK Assigned PCP 08/02/18 01/29/20 [facility] [address] [facility] [address] [place] [address] documented as of this encounter
--- OUTSIDE RECORDS SUMMARY | 2021-12-14 16:19 | XMS_ITS | Encounter Summary ---
:1980 Author Organization [place] Address [facility] [place] [address] Care Team Providers Name Role Phone Clinic, [facility] Primary Care Provide r Tatyana Haas Sanju LEAD CYTOGENETIC TECHNOLOGIST AUDIO TECHNICIAN Unavailable [phone] Reason for Visit Reason Onset Date Comments No Show 02/16/2019 Encounter Details Date Type Department Care Team Description 02/16/2019 Office Visit [facility] NO SHOW (P rimary Dx) Clinic Ashly Russ PA-C [address] [place] [address] [place] [address] [address] [facility] 700 [place] [address] [phone] Social History Tobacco Use Types Packs/Day Years Used Date Smoking Tobacco: Every Day Cigarettes 0.3 10 Smokeless Tobacco: Never Comments: 5-8 cigarettes a day Alcohol Use Standard Drinks/Week Comments Not Currently 0 (1 standard drink = 0.6 oz pure alcoho l) sober 16 days Sex Assigned at Date Recorded Female 01/14/2020 10:57 AM ECOMMERCE MANAGER documented as of this encounter Progress Notes Hillary Sears MA - 02/16/2019 1:20 PM CST . This patient was a no show for this scheduled appointment. MERCE MANAGER documented in this encounter Plan of Treatment Upcoming Encounters Date Type Specialty Care Team Description 12/20/2021 Office Visit Wound Care Luis Camara DPM [address] [place] [address] (Wo rk) 01/21/2022 PRE VISIT Gastroenterology Landon Warren, *-*WANDAIN G RECORDS*-* MD Luis Fernando [address] [facility] 2A [place] [address] (Wo rk) 01/21/2022 Office Visit Gastroenterology Juanis Levi [address] [place] [phone] Luis Fernando Miles MD [address] [address] documented as of this encounter Visit Diagnoses Diagnosis NO SHOW - Primary documented in this encounter Additional Health Concerns Assessment Noted Time PHQ-9 Depression Total Score: 10 07/08/2018 1:27 PM CD T documented as of this encounter Care Teams Shoe Dresser Relationship Specialty Start Date End Date Clinic, [facility] PCP - General 01/20/18 06/28/[address] [place] [address] Tatyana Haas, LEAD CYTOGENETIC TECHNOLOGIST AUDIO TECHNICIAN Assigned PCP 08/02/18 01/29/20 [place] [facility] [address] [facility] [address] [place] [address] documented as of this encounter
--- OUTSIDE RECORDS SUMMARY | 2021-12-14 16:19 | XMS_ITS | Encounter Summary ---
:1980 Author Organization [place] Address [facility]0 [place] [address] Care Team Providers Name Role Phone Clinic, [facility] Primary Care Provide r Eufemia Pinadelon Alvarez APRN SULFATE DRIER MACHINE OPERATOR Unavailable [phone] Reason for Visit Reason Onset Date Comments Labs Only 02/29/2020 [facility]. Encounter Details Date Type Department Care Team Description 02/29/2020 Telephone [facility] Inocencio Newberry Labs Only ([facility] JIMBO Jesus [facility] [address] 9 [place] [phone] Social History Tobacco Use Types Packs/Day Years Used Date Smoking Tobacco: Every Day Cigarettes 0.3 10 Smokeless Tobacco: Never Comments: 5-8 cigarettes a day Alcohol Use Standard Drinks/Week Comments Yes 0 (1 standard drink = 0.6 oz pure alcoho l) drinking a pint of vodka daily Sex Assigned at Date Recorded Female 01/14/2020 10:57 AM PASTRY WRAPPER COVID-19 Exposure Response Date Recorded In the last month, have you been in contact with No / Unsure 02/28/2020 9:23 AM PASTRY WRAPPER someone who was confirmed or suspected to have Coronavirus / COVID-19? documented as of this encounter Miscellaneous Notes Telephone Encounter - Grothe, Ann Marie - 02/29/2020 4:25 PM CST Lab orders faxed. Patient notified. Hannah Gilmore LPN Hepatology [facility] Call Center Phone Message May a detailed message be left on voicemail: yes Reason for Call: Order(s): Other: Reason for requested: Pt is requesting for her lab orders to be sent to the [facility] in [facility] Date needed: jesus Provider name: Dr. Newberry Action Taken: Message routed to: [facility] hep Travel Screening: Not Applicable RY WRAPPER documented in this encounter Plan of Treatment Upcoming Encounters Date Type Specialty Care Team Description 12/20/2021 Office Visit Wound Care Luis Camara DPM [address] [place], [place] [address] (Wo rk) 01/21/2022 PRE VISIT Gastroenterology Landon Warren, *-*WANDAIN G RECORDS*-* MD Luis Fernando [address] [place] [phone] (Wo rk) 01/21/2022 Office Visit Gastroenterology Juanis Levi [address] [place] [phone] Luis Fernando Miles MD [address] [place] [address] documented as of this encounter Visit Diagnoses Diagnosis Chronic hepatitis C without hepatic coma (H) - Primary documented in this encounter Additional Health Concerns Assessment Noted Time PHQ-9 Depression Total Score: 6 12/27/2019 9:38 AM PASTRY WRAPPER documented as of this encounter Care Teams Termite Treater Helper Relationship Specialty Start Date End Date Clinic, [facility] PCP - General 01/20/18 06/28/[address] [place] [address] Stephani Pina APRN SULFATE DRIER MACHINE OPERATOR Assigned PCP 01/30/20 12/30/[address] [place] [address] documented as of this encounter
--- OUTSIDE RECORDS SUMMARY | 2021-12-14 16:19 | XMS_ITS | Encounter Summary ---
:1980 Author Organization [place] Address [facility] [place] [address] Care Team Providers Name Role Phone Clinic, [facility] Primary Care Provide r Tatyana Haas Sanju ESCAPE WHEEL TOOTH CUTTER CABLE DRILLER Unavailable [phone] Reason for Visit Reason Comments Alcohol Problem Encounter Details Date Type Department Care Team Description 01/20/2019 - [facility] Eliud Fernandez lcohol abuse, continuous; 01/21/2019 [facility] Emergency MD Solomon Nicotine dependence; Dept EMERGENCY PHYSICIANS Alcohol dependence with unsp ecified alcohol-induced disorder (H); [address] JENIFFER Nicotine dependence, uncomplicated, unsp ecified nicotine product type [place], [place] [address] [address] [place] [address] [place], [place] [address] (Wo rk) Social History Tobacco Use Types Packs/Day Years Used Date Smoking Tobacco: Every Day Cigarettes 0.3 10 Smokeless Tobacco: Never Comments: 5-8 cigarettes a day Alcohol Use Standard Drinks/Week Comments Not Currently 0 (1 standard drink = 0.6 oz pure alcoho l) sober 16 days Sex Assigned at Date Recorded Female 01/14/2020 10:57 AM VICE PRESIDENT NETWORK documented as of this encounter Last Filed Vital Signs Vital Sign Reading Time Taken Comments Blood Pressure 156/95 01/21/2019 1:10 AM VICE PRESIDENT NETWORK Pulse 99 01/21/2019 1:10 AM VICE PRESIDENT NETWORK Temperature 36.8 ??C (98.3 ??F) 01/20/2019 8:05 PM VICE PRESIDENT NETWORK Respiratory Rate - - Oxygen Saturation 98% 01/21/2019 1:10 AM VICE PRESIDENT NETWORK Inhaled Oxygen Concentration - - Weight - [...] Surgical History: Breast surgery section x 2 Security Representative surgery Orthopedic surgery Thoracic surgery Family History: Mother - Depression, psychotic disorder, thyroid disease Father - Cerebrovascular disease, [place] Brother(s) - Depression Son - Asthma Social [...] patient. Patient placed on ROBERT hold. ([id number]) [address] [place] [address] agreed to take the patient into their care. Findings and plan explained to the Patient. Patient will be transferred to [address] [place] [address] via EMS. Discussed the case with [address] [place] [address], who will admit the patient to a [...] nicotine product type F17.200 Disposition: Discharged to [address] [place] [address]. Scribe Disclosure: IKaveh, am serving as a scribe at 8:36 PM on 01/20/2019 to document services personally performed by Eliud Fernandez MD based on my observations and the provider's statements to me. 01/20/2019 [facility] EMERGENCY DEPARTMENT Eliud Fernandez MD 01/20/19 [address]779 PRESIDENT NETWORK documented in this encounter Plan of Treatment Upcoming Encounters Date Type Specialty Care Team Description 12/20/2021 Office Visit Wound Care Hoa Luis Lex, DPM [address] [place], [place] [phone] (Wo rk) 01/21/2022 PRE VISIT Gastroenterology Landon Warren, *-*INCOMIN G RECORDS*-* MD Luis Fernando [address] [address] (Wo rk) 01/21/2022 Office Visit Gastroenterology Juanis Levi [address] [place] [address] Luis Fernando Miles MD [address] [phone] documented as of this encounter Procedures Procedure Name Priority Date/Time Associated Comments Diagnosis XR ANKLE RIGHT 2 VIEWS STAT 01/20/2019 10:24 R esults for this PM VICE PRESIDENT NETWORK procedure are i n the results section. CBC WITH PLATELETS & STAT 01/20/2019 8:35 PM R esults for this DIFFERENTIAL VICE PRESIDENT NETWORK procedure are i n the results section. LIPASE STAT 01/20/2019 8:35 PM Results f or this VICE PRESIDENT NETWORK procedure are i n the results section. COMPREHENSIVE STAT 01/20/2019 8:35 PM Results for this METABOLIC PANEL VICE PRESIDENT NETWORK procedure ar e in the results section. ETHYL ALCOHOL LEVEL STAT 01/20/2019 8:35 PM Re sults for this VICE PRESIDENT NETWORK procedure are i n the results section. documented in this encounter Results XR Ankle Right 2 Views (01/20/2019 10:24 PM VICE PRESIDENT NETWORK) Anatomical Region Laterality Modality Leg, Ankle, Foot Right Digital Radiography Specimen (Source) Anatomical Collection Method Collection Time Re ceived Time Location / / Volume Laterality 01/20/2019 10:16 PM VICE PRESIDENT NETWORK Impressions 01/20/2019 10:37 PM VICE PRESIDENT NETWORK IMPRESSION: There is a region of lucency medial talar dome. This suggests osteochondral injury. Degenerative canales es in the ankle joint. No acute fracture or dislocation. Previous internal fixation of the anterior calcaneus. Narrative 01/20/2019 10:37 PM VICE PRESIDENT NETWORK EXAM: XR ANKLE RT 2 VW LOCATION: [facility] DATE/TIME: 01/20/2019 10:16 PM INDICATION: Ankle swelling. COMPARISON: None. Procedure Note Durga Fuentes MD - 01/20/2019Formattin g of this note might be different from the original. EXAM: XR ANKLE RT 2 VW LOCATION: [facility] DATE/TIME: 01/20/2019 10:16 PM INDICATION: Ankle swelling. COMPARISON: None. IMPRESSION: There is a region of lucency medial talar dome. This suggests osteochondral injury. Degenerative changes in the ankle joint. No acute fracture or dislocation. Previous internal fixation of the anterior calcaneus. Eliud Fernandez MD IMG DIAGNOSTIC IMAGING ORDERABLES (ABNORMAL) Alcohol ethyl (01/20/2019 8:35 PM VICE PRESIDENT NETWORK) athologist Signature Ethanol g/dL 0.41 (HH) <0.01 g/dL 01/20/2019 [place] 10:19 PM [facility] Comment: Specimen run with a dilution Critical Value called to and read back Margo DAVID (ERA) ON 01.20.2019 AT 2218 B Y VL Specimen Anatomical Collection Method Collection Time Receive d Time (Source) Location / / Volume Laterality Blood specimen 01/20/2019 8:35 PM 019 9:23 (specimen) VICE PRESIDENT NETWORK PM VICE PRESIDENT NETWORK Eliud Fernandez MD LAB - BLOOD ORDERABLES Performing Organization Address City/State/ZIP Code Phon e Number M [facility] [address] [place] [address] [phone] [facility] [address] [place] [address], [phone] (ABNORMAL) Comprehensive metabolic panel (01/20/2019 8:35 PM VICE PRESIDENT NETWORK) athologist Signature Sodium 143 133 - 144 01/20/2019 [place] mmol/L 10:19 PM [facility] Potassium 3.9 3.4 - 5.3 01/20/2019 [place] mmol/L 10:19 PM [facility] Comment: Specimen slightly hemolyzed, po tassium may be falsely elevated Chloride 106 94 - 109 mmol/L 01/20/2019 10:19 PM [facility] Carbon Dioxide 29 20 - 32 mmol/L 01/20/2019 10:19 PM [facility] Anion Gap 8 3 - 14 mmol/L 01/20/2019 10:19 PM [facility] Glucose 98 70 - 99 mg/dL 01/20/2019 10:19 PM [facility] Urea Nitrogen 6 (L) 7 - 30 mg/dL 01/20/2019 10:19 PM LUIS ALBERTO SERGIO [facility] Creatinine 0.61 0.52 - 1.04 mg/dL 01/20/2019 10:19 PM [facility] GFR Estimate >90 >60 01/20/2019 10:19 PM JAS OSORIO mL/min/{1.73_m2} [facility] Comment: Non GFR Calc Starting 02/03/2018, serum creatinine ba sed estimated GFR (eGFR) will be calculated using the Chronic Kidney Dise [facility] Epidemiology Collaboration (CKD-EPI) equation. GFR Estimate If >90 >60 mL/min/{1.73_m2} 01/20/2019 10:[address] [facility] Comment: GFR Calc Starting 02/03/2018, serum creatinine ba sed estimated GFR (eGFR) will be calculated using the Chronic Kidney Dise [facility] Epidemiology Collaboration (CKD-EPI) equation. Calcium 8.9 8.5 - 10.1 01/20/2019 10:19 PM [facility] mg/dL [facility] Bilirubin Total 0.9 0.2 - 1.3 mg/dL 01/20/2019 10:19 P M [facility] Albumin 3.9 3.4 - 5.0 g/dL 01/20/2019 10:19 PM [facility] Protein Total 8.8 6.8 - 8.8 g/dL 01/20/2019 10:[address] [facility] Alkaline Phosphatase 117 40 - 150 U/L 01/20/2019 10:19 PM [facility] ALT 117 (H) 0 - 50 U/L 01/20/2019 10:19 PM [facility] AST 158 (H) 0 - 45 U/L 01/20/2019 10:19 PM [facility] Comment: Specimen is hemolyzed which can falsely elevate AST. Analysis of a non-hemolyzed specimen may result in a l ower value. Specimen Anatomical Collection Method Collection Time Receive d Time (Source) Location / / Volume Laterality Blood specimen 01/20/2019 8:35 PM 019 9:23 (specimen) VICE PRESIDENT NETWORK PM VICE PRESIDENT NETWORK Eliud Fernandez MD LAB - BLOOD ORDERABLES Performing Organization Address City/State/ZIP Code Phon e Number M [facility] [address] [place] [address] [facility] [address] [place] [address], [place] [phone] Lipase (01/20/2019 8:35 PM VICE PRESIDENT NETWORK) P athologist Signature Lipase 334 73 - 393 01/20/2019 [place] U/L 10:19 PM [facility] Specimen Anatomical Collection Method Collection Time Receive d Time (Source) Location / / Volume Laterality Blood specimen 01/20/2019 8:35 PM 019 9:23 (specimen) VICE PRESIDENT NETWORK PM VICE PRESIDENT NETWORK Eliud Fernandez MD LAB - BLOOD ORDERABLES Performing Organization Address City/State/ZIP Code Phon e Number M [facility] [address] [place] [address] [phone] [facility] [address] [place] [address], [place] [phone] (ABNORMAL) CBC with platelets differential (01/20/2019 8:35 PM VICE PRESIDENT NETWORK) Patholo gist Method Time Signature WBC 4.0 4.0 - 01/20/2019 [facility] 11.0 9:28 PM [facility] 10e9/L [facility] RBC Count 4.55 3.8 - 5.2 01/20/2019 [facility] 10e12/L 9:28 PM [facility] Hemoglobin 14.7 11.7 - 01/20/2019 [facility] 15.7 g/dL 9:28 PM [facility] Hematocrit 44.7 35.0 - 01/20/2019 [facility] 47.0 % 9:28 PM [facility] MCV 98 78 - 100 01/20/2019 [facility] fl 9:28 PM [facility] MCH 32.3 26.5 - 01/20/2019 [facility] 33.0 pg 9:28 PM [facility] MCHC 32.9 31.5 - 01/20/2019 [facility] 36.5 g/dL 9:28 PM [facility] RDW 13.2 10.0 - 01/20/2019 [facility] 15.0 % 9:28 PM [facility] Platelet Count 119 (L) 150 - 450 01/20/2019 [facility] 10e9/L 9:28 PM [facility] Diff Method Automated 01/20/2019 [facility] Method 9:28 PM [facility] % Neutrophils 31.5 % 01/20/2019 [facility] 9:28 PM [facility] % Lymphocytes 58.7 % 01/20/2019 [facility] 9:28 PM [facility] % Monocytes 7.4 % 01/20/2019 [facility] 9:28 PM [facility] % Eosinophils 1.2 % 01/20/2019 [facility] 9:28 PM [facility] % Basophils 0.7 % 01/20/2019 [facility] 9:28 PM [facility] % Immature 0.5 % 01/20/2019 [facility] Granulocytes 9:28 PM [facility] Nucleated RBCs 0 0 /100 01/20/2019 [facility] 9:28 PM [facility] Absolute 1.3 (L) 1.6 - 8.3 01/20/2019 [facility] Neutrophil 10e9/L 9:28 PM [facility] Absolute 2.4 0.8 - 5.3 01/20/2019 [facility] Lymphocytes 10e9/L 9:28 PM [facility] Absolute 0.3 0.0 - 1.3 01/20/2019 [facility] Monocytes 10e9/L 9:28 PM [facility] Absolute 0.1 0.0 - 0.7 01/20/2019 [facility] Eosinophils 10e9/L 9:28 PM [facility] Absolute 0.0 0.0 - 0.2 01/20/2019 [place] Basophils 10e9/L 9:28 PM [facility] Abs Immature 0.0 0 - 0.4 01/20/2019 [place] Granulocytes 10e9/L 9:28 PM [facility] Absolute 0.0 01/20/2019 [place] Nucleated RBC 9:28 PM [facility] Specimen Anatomical Collection Method Collection Time Receive d Time (Source) Location / / Volume Laterality Blood specimen 01/20/2019 8:35 PM 019 9:23 (specimen) VICE PRESIDENT NETWORK PM VICE PRESIDENT NETWORK Eliud Fernandez MD LAB - BLOOD ORDERABLES Performing Organization Address City/State/ZIP Code Phon e Number M [place] [address] [address] [place] [address] [facility] [address] [phone] documented in this encounter Visit Diagnoses Diagnosis [...] chloride BOLUS New Bag 01/20/2019 11:57 PM VICE PRESIDENT NETWORK 500 mLs 500 mL/hr Intravenous, 500 mL, ONCE, at 500 mL/hr, Administer over 1 Hours, On Fri01/20/19 at 2332, For 1 dose buprenorphine HCl-naloxone HCl (SUBOXONE) Given 01/20/2019 10:33 PM VICE PRESIDENT NETWORK 1 Film 8-2 MG per film 1 Film 1 Film, Sublingual, ONCE, On Fri01/20/19 at 2135, For 1 dose documented in this encounter Active and Recently Administered Medications Times are shown in VICE PRESIDENT NETWORK. Scheduled Medication Order 01/19/2019 01/20/2019 01/21/2019 0.9% [...] documented as of this encounter Care Teams Reversal Print Inspector Relationship Specialty Start Date End Date Clinic, [facility] PCP - General 01/20/18 06/28/[address] [place] [address] Tatyana Haas APRN CABLE DRILLER Assigned PCP 08/02/18 01/29/20 [place] [facility] [address] [facility] [address] [place] [address] documented as of this encounter
--- OUTSIDE RECORDS SUMMARY | 2021-12-14 16:19 | XMS_ITS | Encounter Summary ---
:1980 Author Organization [place] Address [address] [facility] [place] [address] Care Team Providers Name Role Phone Clinic, [facility] Primary Care Provide r Tatyana Haas Sanju PHYSICAL THERAPY ASST NETWORKING SPECIALIST Unavailable [phone] Encounter Details Date Type Department Care [...] at Date Recorded Female 01/14/2020 10:57 AM DRIVER EDUCATION INSTRUCTOR documented as of this encounter Plan of Treatment Upcoming Encounters Date Type Specialty Care Team Description 12/20/2021 Office Visit Wound Care Luis Camara DPM [address] [place] [address] (Wo rk) 01/21/2022 PRE VISIT Gastroenterology Landon Warren, *-*HEATHER Barriga RECORDS*-* MD Luis Fernando [address] [address] (Wo rk) 01/21/2022 Office Visit Gastroenterology Juanis Levi [address] [place] [address] Luis Fernando Miles MD 6 [facility] [address] [place], [place] [phone] documented as of this encounter Visit Diagnoses Not on filedocumented in this encounter Additional Health Concerns Assessment Noted Time PHQ-9 Depression Total Score: 10 07/08/2018 1:27 PM CD T documented as of this encounter Care Teams Hotel Manager Relationship Specialty Start Date End Date Clinic, [facility] PCP - General 01/20/18 06/28/[address] [place] [address] Tatyana Haas APRN NETWORKING SPECIALIST Assigned PCP 08/02/18 01/29/20 [facility] [address] [facility] [address] [place], [place] [address] documented as of this encounter
--- OUTSIDE RECORDS SUMMARY | 2021-12-14 16:19 | XMS_ITS | Encounter Summary ---
:1980 Author Organization [place] Address [facility] [place] [address] Care Team Providers Name Role Phone Clinic, [facility] Primary Care Provide r Tatyana Haas HVAC TECHNICIAN RESIDENTIAL TRANSPORT ANALYST Unavailable [phone] Stephani Pina HVAC TECHNICIAN RESIDENTIAL TRANSPORT ANALYST Unavailable Encounter Details Date Type Department Care Team Description 01/18/2020 Telephone [facility] Generic, Behavioral Behavioral Health In abigail Rivera MD [address] [place] [address] Social History Tobacco Use Types Packs/Day Years Used Date Smoking Tobacco: Every Day Cigarettes 0.3 10 Smokeless Tobacco: Never Comments: 5-8 cigarettes a day Alcohol Use Standard Drinks/Week Comments Yes 0 (1 standard drink = 0.6 oz pure alcoho l) drinking a pint of vodka daily Sex Assigned at Date Recorded Female 01/14/2020 10:57 AM FRONT END ALIGNMENT SPECIALIST COVID-19 Exposure Response Date Recorded In the last month, have you been in contact with No / Unsure 07/12/2020 11:10 AM CDT someone who was confirmed or suspected to have Coronavirus / COVID-19? documented as of this encounter Miscellaneous Notes Telephone Encounter - Brittnee Lainez - 03/08/2020 2:53 PM CST ----- Message from OLGA Deshpande sent at 03/08/2020 1:47 PM FRONT END ALIGNMENT SPECIALIST ----- Regarding: Set up appointments for client at [facility] Patient Name: ??See above Location of programming: [facility] Start Date: 03/13/2020 Group: ([id number] M, W, TH 5:30PM Provider: OLGA Baron Number of visits to be scheduled: 17 Length/Duration of Appointment in minutes: 120 Visit Type (VIDEO/TELEPHONE/IN-PERSON): Video (5719) Additional notes: Thanks OLGA Baron T END ALIGNMENT SPECIALIST Telephone Encounter - Brittnee Lainez - 03/02/2020 3:11 PM CST ----- Message from OLGA Deshpande sent at 03/02/2020 2:17 PM FRONT END ALIGNMENT SPECIALIST ----- Regarding: Add IOP CD Phase I appointments for client at [facility] Patient Name: ??See above Location of programming: [facility] Start Date:03/02/2020 Group: ([id number] M, T, W, TH 5:30PM Provider: OLGA Baron Number of visits to be scheduled: 5 Length/Duration of Appointment in minutes: M, W, TH 120 T 180 Visit Type (VIDEO/TELEPHONE/IN-PERSON): Video (6053) Additional notes: Thanks OLGA Baron T END ALIGNMENT SPECIALIST Telephone Encounter - Leticia Donohue - 01/19/2020 3:16 PM CST ----- Message from OLGA Deshpande sent at 01/19/2020 2:58 PM FRONT END ALIGNMENT SPECIALIST ----- Regarding: Move 1:1 appointment for client from 01/18 to 01/19 Please move the 1:1 appointment scheduled for the above client with me for January 18 at 4:30PM to January 19 at 4:30PM at the [facility]. 8216 video appointment. My provider ID is: [id number]. Thanks OLGA Baron T END ALIGNMENT SPECIALIST Telephone Encounter - Victoria Nunes - 01/18/2020 1:50 PM CST ----- Message from OLGA Deshpande sent at 01/17/2020 3:35 PM FRONT END ALIGNMENT SPECIALIST ----- Regarding: RE: Referring to [facility] Please arrange for a 1:1 appointment for the above client via video with me on January 2at 4:30PM. My provider ID is; [id number] Patient Name: See above?? Location of programming: [facility] clinic Start Date: 01/19/2020 Group: ([id number] M, T, W, TH 5:30PM Provider: OLGA Baron Number of visits to be scheduled: 26 Length/Duration of Appointment in minutes: M, W, Th, 120 T 180 Visit Type (VIDEO/TELEPHONE/IN-PERSON): Video ([id number]) Additional notes: Thanks OLGA Baron ----- Message ----- From: June Porter LADC Sent: 01/14/2020 2:30 PM FRONT END ALIGNMENT SPECIALIST To: OLGA Deshpande, [facility] Outpatient Intake Subject: Referring to [facility] Hey- I've referred this patient to [facility]. Comp assessment completed. She is likely to discharge from today 01/14/2020 and is instructed to follow up with Britton to schedule. Please reach out to patient to coordinate. Thanks! June #[id number] T END ALIGNMENT SPECIALIST documented in this encounter Plan of Treatment Upcoming Encounters Date Type Specialty Care Team Description 12/20/2021 Office Visit Wound Care Luis Camara DPM [address] [place] [address] (Wo rk) 01/21/2022 PRE VISIT Gastroenterology Landon Warren, *-*WANDAIN G RECORDS*-* MD Luis Fernando [address] [address] (Wo rk) 01/21/2022 Office Visit Gastroenterology Juanis Levi [address] [place] [address] Luis Fernando Miles MD [address] [facility] [address] [place], [place] [address] documented as of this encounter Visit Diagnoses Diagnosis Alcohol abuse, continuous - Primary Nondependent alcohol abuse, continuous d rinking behavior documented in this encounter Additional Health Concerns Assessment Noted Time PHQ-9 Depression Total Score: 6 12/27/2019 9:38 AM FRONT END ALIGNMENT SPECIALIST documented as of this encounter Care Teams Lead Project Engineer Relationship Specialty Start Date End Date Clinic, [facility] PCP - General 01/20/18 06/28/21 [facility] [place] [address] Tatyana Haas APRN TRANSPORT ANALYST Assigned PCP 08/02/18 01/29/20 [facility] [address] [facility] [address] [place] [address] Stephani Pina APRN TRANSPORT ANALYST Assigned PCP 01/30/20 12/30/[address] [place] [address] [address] [place] [address] documented as of this encounter
--- OUTSIDE RECORDS SUMMARY | 2021-12-14 16:19 | XMS_ITS | Encounter Summary ---
:1980 Author Organization [place] Address [address] [facility] [place] [address] Care Team Providers Name Role Phone Clinic, [facility] Primary Care Provide r Tatyana Haas Sanju INDUSTRIAL TRUCK MECHANIC DESIGN PRINTER BALLOON Unavailable [phone] Reason for Visit Reason Onset Date Comments MH/CD Inpatient 04/01/2019 Encounter Details Date Type Department Care Team Description 04/01/2019 Telephone [facility] Generic, Behavioral MH/ CD Inpatient Behavioral Health In abigail Rivera MD [address] [place] [phone] Social History Tobacco Use Types Packs/Day Years Used Date Smoking Tobacco: Every Day Cigarettes 0.3 10 Smokeless Tobacco: Never Comments: 5-8 cigarettes a day Alcohol Use Standard Drinks/Week Comments Not Currently 0 (1 standard drink = 0.6 oz pure alcoho l) sober 16 days Sex Assigned at Date Recorded Female 01/14/2020 10:57 AM THEATRE PROFESSOR documented as of this encounter Miscellaneous Notes Telephone Encounter - Claudette Francis - 04/01/2019 5:26 PM CST S: [place] [facility] seeking detox placement for a 38yo [...] and ready for behavioral bed placement: Yes TRE PROFESSOR documented in this encounter Plan of Treatment Upcoming Encounters Date Type Specialty Care Team Description 12/20/2021 Office Visit Wound Care Lius Camara, [place] [address] [place] [address] (Wo rk) 01/21/2022 PRE VISIT Gastroenterology Landon Warren, *-*HEATHER G RECORDS*-* MD Luis Fernando [address] [place] [id number] (Wo rk) 01/21/2022 Office Visit Gastroenterology Juanis Levi [address] [place] [phone] Luis Fernando Miles MD [address] [place] [address] documented as of this encounter Visit Diagnoses Not on filedocumented in this encounter Additional Health Concerns Assessment Noted Time PHQ-9 Depression Total Score: 10 07/08/2018 1:27 PM CD T documented as of this encounter Care Teams Regional Project Manager Relationship Specialty Start Date End Date Clinic, [facility] PCP - General 01/20/18 06/28/[address] [place] [address] Tatyana Haas APRN DESIGN PRINTER BALLOON Assigned PCP 08/02/18 01/29/20 [facility] [address] [facility] [address] [place], [place] [phone] (work) documented as of this encounter
--- OUTSIDE RECORDS SUMMARY | 2021-12-14 16:19 | XMS_ITS | Encounter Summary ---
:1980 Author Organization [place] Address [address] [facility] [place] [address] Care Team Providers Name Role Phone Clinic, [facility] Primary Care Provide r YovaniStephani APRN MOBILE ARCHITECT Unavailable [phone] Reason for Visit Reason Onset Date Comments Clinic Care Coordination - Follow-up 03/27/2020 Encounter Details Date Type Department Care Team Description 03/27/2020 [facility]phone [facility] Car e Coordination Clinic [facility] - Follow-up [address] [address] [place] [address] Social History Tobacco Use Types Packs/Day Years Used Date Smoking Tobacco: Every Day Cigarettes 0.3 10 Smokeless Tobacco: Never Comments: 5-8 cigarettes a day Alcohol Use Standard Drinks/Week Comments Yes 0 (1 standard drink = 0.6 oz pure alcoho l) drinking a pint of vodka daily Sex Assigned at Date Recorded Female 01/14/2020 10:57 AM CHILD CARE COORDINATOR COVID-19 Exposure Response Date Recorded In the last month, have you been in contact with No / Unsure 03/27/2020 9:20 AM CHILD CARE COORDINATOR someone who was confirmed or suspected to have Coronavirus / COVID-19? documented as of this encounter Miscellaneous Notes Telephone Encounter - Kamari Spring - 03/27/2020 11:15 AM CST Stephani is setup with Eri He on the at 4pm with Dr. Jorden Hoffman for termite helper care. D CARE COORDINATOR documented in this encounter Plan of Treatment Upcoming Encounters Date Type Specialty Care Team Description 12/20/2021 Office Visit Wound Care Luis Camara, DPM [address] [place], [place] [address] (Wo rk) 01/21/2022 PRE VISIT Gastroenterology Landon Warren, *-*WANDAIN G RECORDS*-* MD Luis Fernando 516 [facility] 2A [place], [place] [address]335 (Wo rk) 01/21/2022 Office Visit Gastroenterology Juanis Levi 2450 [place] [address] Luis Fernando Miles MD [address] [place] [address] [phone] documented as of this encounter Visit Diagnoses Not on filedocumented in this encounter Additional Health Concerns Assessment Noted Time PHQ-9 Depression Total Score: 6 12/27/2019 9:38 AM CHILD CARE COORDINATOR documented as of this encounter Care Teams Head Librarian Relationship Specialty Start Date End Date Clinic, [facility] PCP - General 01/20/18 06/28/[address] [place] [address] Stephani Pina, COLLAR TAILOR MOBILE ARCHITECT Assigned PCP 01/30/20 12/30/[address] [place] [address] 700 [place], [place] [phone] documented as of this encounter
--- OUTSIDE RECORDS SUMMARY | 2021-12-14 16:19 | XMS_ITS | Encounter Summary ---
:1980 Author Organization [place] Address [address] [place] [address] Care Team Providers Name Role Phone Clinic, [facility] Primary Care Provide r Guerita Haasherb Bills MEDTRONICS TECHNICIAN MACHINE SORTER Unavailable [phone] Encounter Details Date Type Department Care [...] at Date Recorded Female 01/14/2020 10:57 AM TEACHER THEATER ARTS COVID-19 Exposure Response Date Recorded In the last month, have you been in contact with No / Unsure 01/07/2020 9:15 AM TEACHER THEATER ARTS someone who was confirmed or suspected to have Coronavirus / COVID-19? documented as of this encounter Plan of Treatment Upcoming Encounters Date Type Specialty Care Team Description 12/20/2021 Office Visit Wound Care Luis Camara DPM 909 [place] [address] (Reinaldo molina) 01/21/2022 PRE VISIT Gastroenterology Landon Warren, *-*WANDAIN G RECORDS*-* MD Luis Fernando [address] [facility] [address] [address] (Wo rk) 01/21/2022 Office Visit Gastroenterology Juanis Levi 2450 [place] [address] Luis Fernando Miles MD 516 [facility] 2A [place], [place] [phone] documented as of this encounter Visit Diagnoses Not on filedocumented in this encounter Additional Health Concerns Assessment Noted Time PHQ-9 Depression Total Score: 6 12/27/2019 9:38 AM TEACHER THEATER ARTS documented as of this encounter Care Teams Hog Raiser Relationship Specialty Start Date End Date Clinic, [facility] PCP - General 01/20/18 06/28/[address] [place] [address] [phone] Tatyana Haas APRN MACHINE SORTER Assigned PCP 08/02/18 01/29/20 [facility] [address] [facility] [address] 150 [place] [address] documented as of this encounter
--- OUTSIDE RECORDS SUMMARY | 2021-12-14 16:19 | XMS_ITS | Encounter Summary ---
:1980 Author Organization [place] Address [address] [place] [address] Care Team Providers Name Role Phone Clinic, [facility] Primary Care Provide r Guerita Haasherb Bills HEAVY EQUIPMENT RENTAL MANAGER BARKER PEELER Unavailable [phone] Encounter Details Date Type Department Care [...] at Date Recorded Female 01/14/2020 10:57 AM CEMENTING BULK MATERIAL OPERATOR COVID-19 Exposure Response Date Recorded In the last month, have you been in contact with No / Unsure 01/11/2020 8:00 PM CEMENTING BULK MATERIAL OPERATOR someone who was confirmed or suspected to have Coronavirus / COVID-19? documented as of this encounter Plan of Treatment Upcoming Encounters Date Type Specialty Care Team Description 12/20/2021 Office Visit Wound Care Luis Camara DPM 909 [place] [address] (Reinaldo molina) 01/21/2022 PRE VISIT Gastroenterology Landon Warren, *-*WANDAIN G RECORDS*-* MD Luis Fernando [address] [address] (Wo rk) 01/21/2022 Office Visit Gastroenterology Juanis Levi 2450 [place] [address] Luis Fernando Miles MD [address] [facility] 2A [place], [place] [address] documented as of this encounter Visit Diagnoses Not on filedocumented in this encounter Additional Health Concerns Assessment Noted Time PHQ-9 Depression Total Score: 6 12/27/2019 9:38 AM CEMENTING BULK MATERIAL OPERATOR documented as of this encounter Care Teams Junior Designer Relationship Specialty Start Date End Date Clinic, [facility] PCP - General 01/20/18 06/28/[address] [place] [address] [phone] Tatyana Haas APRN BARKER PEELER Assigned PCP 08/02/18 01/29/20 [facility] [address] [facility] [address] [place] [address] documented as of this encounter
--- OUTSIDE RECORDS SUMMARY | 2021-12-14 16:19 | XMS_ITS | Encounter Summary ---
:1980 Author Organization [place] Address [address] [place] [address] Care Team Providers Name Role Phone Clinic, [facility] Primary Care Provide r Stephani Pina Kim LEON DIRECTOR GROUP SALES Unavailable [phone] Encounter Details Date Type Department Care [...] Date Recorded Female 01/14/2020 10:57 AM PRODUCTION LAPPING MACHINE OPERATOR COVID-19 Exposure Response Date Recorded In the last month, have you been in contact with No / Unsure 03/27/2020 9:20 AM PRODUCTION LAPPING MACHINE OPERATOR someone who was confirmed or suspected to have Coronavirus / COVID-19? documented as of this encounter Plan of Treatment Upcoming Encounters Date Type Specialty Care Team Description 12/20/2021 Office Visit Wound Care Luis Camara DPM 909 [place] [address] (Reinaldo molina) 01/21/2022 PRE VISIT Gastroenterology Landon Warren, *-*WANDAIN G RECORDS*-* MD Luis Fernando 516 [facility] [address] [address] (Wo rk) 01/21/2022 Office Visit Gastroenterology Juanis Levi 2450 [place] [address] Luis Fernando Miles MD 516 [facility] 2A [place], [place] [address] documented as of this encounter Visit Diagnoses Not on filedocumented in this encounter Additional Health Concerns Assessment Noted Time PHQ-9 Depression Total Score: 6 12/27/2019 9:38 AM PRODUCTION LAPPING MACHINE OPERATOR documented as of this encounter Care Teams Resident Program Specialist Relationship Specialty Start Date End Date Clinic, [facility] PCP - General 01/20/18 06/28/[address] [place] [address] Stephani Pina APRN DIRECTOR GROUP SALES Assigned PCP 01/30/20 12/30/20 [address] [facility] [address] [place] [address] documented as of this encounter
--- OUTSIDE RECORDS SUMMARY | 2021-12-14 16:19 | XMS_ITS | Encounter Summary ---
:1980 Author Organization [place] Address [address] [place] [address] Care Team Providers Name Role Phone Clinic, [facility] Primary Care Provide r Stephani Pina Kim LEON RECEPTION Unavailable Encounter Details Date Type Department Care [...] Recorded Female 01/14/2020 10:57 AM DIRECTOR OF EXTENSION WORK COVID-19 Exposure Response Date Recorded In the last month, have you been in contact with No / Unsure 03/29/2020 2:20 PM DIRECTOR OF EXTENSION WORK someone who was confirmed or suspected to have Coronavirus / COVID-19? documented as of this encounter Plan of Treatment Upcoming Encounters Date Type Specialty Care Team Description 12/20/2021 Office Visit Wound Care Lusi Camara DPM 909 [place] [address] (Reinaldo molina) 01/21/2022 PRE VISIT Gastroenterology Landon Warren, *-*WANDAIN G RECORDS*-* MD Luis Fernando 516 [facility] [address] [place] [address] (Wo rk) 01/21/2022 Office Visit Gastroenterology Juanis Levi 2450 [place] [address] Luis Fernando Miles MD 516 [facility] 2A [place], [place] [address] documented as of this encounter Visit Diagnoses Not on filedocumented in this encounter Additional Health Concerns Assessment Noted Time PHQ-9 Depression Total Score: 6 12/27/2019 9:38 AM DIRECTOR OF EXTENSION WORK documented as of this encounter Care Teams Gallery Or Museum Guide Relationship Specialty Start Date End Date Clinic, [facility] PCP - General 01/20/18 06/28/[address] [place] [address] Stephani Pina APRN RECEPTION Assigned PCP 01/30/20 12/30/20 [address] [facility] [address] [place] [address] documented as of this encounter
--- OUTSIDE RECORDS SUMMARY | 2021-12-14 16:19 | XMS_ITS | Encounter Summary ---
:1980 Author Organization [place] Address [address] [place] [address] Care Team Providers Name Role Phone Clinic, [facility] Primary Care Provide r Stephani Pina Kim YANES DIRECTOR OF NURSING Unavailable [phone] Encounter Details Date Type Department Care [...] Date Recorded Female 01/14/2020 10:57 AM CHARTER BOAT OPERATOR COVID-19 Exposure Response Date Recorded In the last month, have you been in contact with No / Unsure 01/31/2020 9:14 AM CHARTER BOAT OPERATOR someone who was confirmed or suspected to have Coronavirus / COVID-19? documented as of this encounter Plan of Treatment Upcoming Encounters Date Type Specialty Care Team Description 12/20/2021 Office Visit Wound Care Luis Camara DPM 909 [place] [address] (Reinaldo molina) 01/21/2022 PRE VISIT Gastroenterology Landon Warren, *-*WANDAIN G RECORDS*-* MD Luis Fernando 516 [facility] [address] [place] [address] (Wo rk) 01/21/2022 Office Visit Gastroenterology Juanis Levi 2450 [facility] [address] Luis Fernando Miles MD 516 [facility] [place], [place] [address] documented as of this encounter Visit Diagnoses Not on filedocumented in this encounter Additional Health Concerns Assessment Noted Time PHQ-9 Depression Total Score: 6 12/27/2019 9:38 AM CHARTER BOAT OPERATOR documented as of this encounter Care Teams Water Pump Installer Relationship Specialty Start Date End Date Clinic, [facility] PCP - General 01/20/18 06/28/[address] [place] [address] [phone] Stephani Pina APRN DIRECTOR OF NURSING Assigned PCP 01/30/20 12/30/[address] [place] [address] 700 [place], [place] [address]84 documented as of this encounter
--- OUTSIDE RECORDS SUMMARY | 2021-12-14 16:19 | XMS_ITS | Encounter Summary ---
:1980 Author Organization [place] Address [address] [place] [address] Care Team Providers Name Role Phone Clinic, [facility] Primary Care Provide r Guerita Haasdia Sanju GARAGE LABORER AUTOMOTIVE WORKER FOREMAN Unavailable [phone] Encounter Details Date Type Department Care [...] Date Recorded Female 01/14/2020 10:57 AM LOGGING TRACTOR OPERATOR COVID-19 Exposure Response Date Recorded In the last month, have you been in contact with No / Unsure 06/20/2019 10:01 AM CDT someone who was confirmed or suspected to have Coronavirus / COVID-19? documented as of this encounter Plan of Treatment Upcoming Encounters Date Type Specialty Care Team Description 12/20/2021 Office Visit Wound Care Luis Camara DPM 909 [place], [place] [address]45 (Reinaldo molina) 01/21/2022 PRE VISIT Gastroenterology Landon Warren, *-*WANDAIN G RECORDS*-* MD Luis Fernando 516 [facility] [address] [place] [address] (Wo rk) 01/21/2022 Office Visit Gastroenterology Juanis Levi 2450 [place] [address] Luis Fernando Miles MD 516 [facility] [place], [place] [address] documented as of this encounter Visit Diagnoses Not on filedocumented in this encounter Additional Health Concerns Assessment Noted Time PHQ-9 Depression Total Score: 10 07/08/2018 1:27 PM CD T documented as of this encounter Care Teams Robotic Weld Technician Relationship Specialty Start Date End Date Clinic, [facility] PCP - General 01/20/18 06/28/[address] [place] [address] [phone] Tatyana Haas APRN AUTOMOTIVE WORKER FOREMAN Assigned PCP 08/02/18 01/29/20 [facility] [address] [facility] [address] [place] [address] documented as of this encounter
--- OUTSIDE RECORDS SUMMARY | 2021-12-14 16:19 | XMS_ITS | Encounter Summary ---
:1980 Author Organization [place] Address [address] [place] [address] Care Team Providers Name Role Phone Clinic, [facility] Primary Care Provide r Guerita Haasherb Bills HOSPICE VOLUNTEER PAINTER FOREMAN Unavailable [phone] Encounter Details Date Type Department Care [...] at Date Recorded Female 01/14/2020 10:57 AM UNIFORM PATROL POLICE OFFICER COVID-19 Exposure Response Date Recorded In the last month, have you been in contact with No / Unsure 12/31/2019 2:41 PM UNIFORM PATROL POLICE OFFICER someone who was confirmed or suspected to have Coronavirus / COVID-19? documented as of this encounter Plan of Treatment Upcoming Encounters Date Type Specialty Care Team Description 12/20/2021 Office Visit Wound Care Luis Camara DPM 909 [place] [address] (Reinaldo molina) 01/21/2022 PRE VISIT Gastroenterology Landon Warren, *-*WANDAIN G RECORDS*-* MD Luis Fernando 516 [facility] [address] [place] [address] (Wo rk) 01/21/2022 Office Visit Gastroenterology Juanis Levi 2450 [place] [address] Luis Fernando Miles MD 516 [facility] 2A [place], [place] [address] documented as of this encounter Visit Diagnoses Not on filedocumented in this encounter Additional Health Concerns Assessment Noted Time PHQ-9 Depression Total Score: 6 12/27/2019 9:38 AM UNIFORM PATROL POLICE OFFICER documented as of this encounter Care Teams Director Smb Sales Relationship Specialty Start Date End Date Clinic, [facility] PCP - General 01/20/18 06/28/[address] [place] [address] [phone] Tatyana Haas APRN PAINTER FOREMAN Assigned PCP 08/02/18 01/29/20 [facility] [address] [facility] [address] [place] [address] documented as of this encounter
--- OUTSIDE RECORDS SUMMARY | 2021-12-14 16:19 | XMS_ITS | Encounter Summary ---
:1980 Author Organization [place] [address] [facility] [place] [address] Care Team Providers Name Role Phone Clinic, [facility] Primary Care Provide r Waldo Tatyana N HAMMER DRIVER LACING CUTTER Unavailable [phone] Reason for Visit Reason Onset Date Comments No Show 12/22/2018 Encounter Details Date Type Department Care Team Description 12/22/2018 [facility] [place] FARZANA Alvarez LACING CUTTER [address] [place] [address] [place] [address] 700 606 [place] [address] [phone] Social History Tobacco Use Types Packs/Day Years Used Date Smoking Tobacco: Every Day Cigarettes 0.3 10 Smokeless Tobacco: Never Comments: 5-8 cigarettes a day Alcohol Use Standard Drinks/Week Comments Not Currently 0 (1 standard drink = 0.6 oz pure alcoho l) sober 16 days Sex Assigned at Date Recorded Female 01/14/2020 10:57 AM VACUUM SPINDLE SANDER documented as of this encounter Progress Notes Alexander Linda MA - 12/22/2018 10:00 AM CST This patient was a no show for this scheduled appointment. UM SPINDLE SANDER documented in this encounter Plan of Treatment Upcoming Encounters Date Type Specialty Care Team Description 12/20/2021 Office Visit Wound Care Luis Camara DPM 909 [place], [place] [address] (Wo rk) 01/21/2022 PRE VISIT Gastroenterology Landon Warren, *-*INCOMIN G RECORDS*-* MD Luis Fernando [address] 885385 (Wo rk) 01/21/2022 Office Visit Gastroenterology Juanis Levi 2450 [place] [address] Luis Fernando Miles MD [address] [place] [address] [phone] documented as of this encounter Visit Diagnoses Diagnosis NO SHOW - Primary documented in this encounter Additional Health Concerns Assessment Noted Time PHQ-9 Depression Total Score: 10 07/08/2018 1:27 PM CD T documented as of this encounter Care Teams Industrial Technology Teacher Relationship Specialty Start Date End Date Clinic, [facility] PCP - General 01/20/18 06/28/[address] [place] [address] Tatyana Haas, HAMMER DRIVER LACING CUTTER Assigned PCP 08/02/18 01/29/20 [facility] [address] [facility] [address] [place] [address] documented as of this encounter
--- OUTSIDE RECORDS SUMMARY | 2021-12-14 16:19 | XMS_ITS | Encounter Summary ---
:1980 Author Organization [place] Address 2450 [facility] [place] [address] Care Team Providers Name Role Phone Clinic, [facility] Primary Care Provide r Guerita Haasdia Sanju DELIVERY SPECIALIST VICE PRESIDENT PRECISION MARKET INSIGHTS Unavailable [phone] Encounter Details Date Type Department Care [...] at Date Recorded Female 01/14/2020 10:57 AM ROLL FORMING MACHINE SET UP OPERATOR documented as of this encounter Plan of Treatment Upcoming Encounters Date Type Specialty Care Team Description 12/20/2021 Office Visit Wound Care Luis Camara DPM 909 [place], [place] [address] (Wo rk) 01/21/2022 PRE VISIT Gastroenterology Landon Warren, *-*HEATHER Barriga RECORDS*-* MD Luis Fernando 516 [facility] 2A [place], [place] 23[address] (Wo rk) 01/21/2022 Office Visit Gastroenterology Juanis Levi 2450 [place] [address] Luis Fernando Miles MD 6 [facility] 2A [place], [place] [address] documented as of this encounter Visit Diagnoses Not on filedocumented in this encounter Additional Health Concerns Assessment Noted Time PHQ-9 Depression Total Score: 10 07/08/2018 1:27 PM CD T documented as of this encounter Care Teams Flat Folding Machine Operator Relationship Specialty Start Date End Date Clinic, [facility] PCP - General 01/20/18 06/28/[address] [place] [address] Tatyana Haas APRN VICE PRESIDENT PRECISION MARKET INSIGHTS Assigned PCP 08/02/18 01/29/20 [facility] [address] [facility] [address] 150 [place], [place] [address]67 documented as of this encounter
--- OUTSIDE RECORDS SUMMARY | 2021-12-14 16:19 | XMS_ITS | Encounter Summary ---
:1980 Author Organization [place] Address [facility]0 [facility] [place] [address] Care Team Providers Name Role Phone Clinic, [facility] Primary Care Provide r Tatyana Haas Sanju CHOPPED STRAND OPERATOR COMPUTER AIDED DESIGN DESIGNER Unavailable [phone] Reason for Visit Reason Onset Date Comments No Show 12/28/2018 Encounter Details Date Type Department Care Team Description 12/28/2018 Office Visit [facility] NO SHOW (P rimary Dx) Clinic Ashly Russ PA-C [address] [place] [address] [address] [facility] 700 [place] [address] [phone] Social History Tobacco Use Types Packs/Day Years Used Date Smoking Tobacco: Every Day Cigarettes 0.3 10 Smokeless Tobacco: Never Comments: 5-8 cigarettes a day Alcohol Use Standard Drinks/Week Comments Not Currently 0 (1 standard drink = 0.6 oz pure alcoho l) sober 16 days Sex Assigned at Date Recorded Female 01/14/2020 10:57 AM MICROPHONE BOOM OPERATOR documented as of this encounter Progress Notes Alexander Linda MA - 12/28/2018 10:40 AM CST This patient was a no show for this scheduled appointment. OPHONE BOOM OPERATOR documented in this encounter Plan of Treatment Upcoming Encounters Date Type Specialty Care Team Description 12/20/2021 Office Visit Wound Care Luis Camara DPM 909 [place], [place] 310635 (Wo rk) 01/21/2022 PRE VISIT Gastroenterology Landon Warren, *-*INCOMIN G RECORDS*-* MD Luis Fernando [address] [phone] (Wo rk) 01/21/2022 Office Visit Gastroenterology Juanis Levi 2450 [place] [address] Luis Fernando Miles MD [address] [phone] documented as of this encounter Visit Diagnoses Diagnosis NO SHOW - Primary documented in this encounter Additional Health Concerns Assessment Noted Time PHQ-9 Depression Total Score: 10 07/08/2018 1:27 PM CD T documented as of this encounter Care Teams Market Intelligence Consultant Relationship Specialty Start Date End Date Clinic, [facility] PCP - General 01/20/18 06/28/[address] [place] [address] Tatyana Haas APRN COMPUTER AIDED DESIGN DESIGNER Assigned PCP 08/02/18 01/29/20 [place] [facility] [address] [facility] [address] [place] [address] documented as of this encounter
--- OUTSIDE RECORDS SUMMARY | 2021-12-14 16:19 | XMS_ITS | Encounter Summary ---
:1980 Author Organization [place] Address [address] [place] [address] Care Team Providers Name Role Phone Clinic, [facility] Primary Care Provide r Stephani Pina Kim YANES GLOBAL SAFETY OFFICER Unavailable Reason for Visit Reason Onset Date Comments *-*INCOMING RECORDS*-* 03/03/2020 Encounter Details Date Type Department Care Team Description 03/03/2020 PRE VISIT [facility] Inocencio Newberry *-*HEATHER Barriga RECORDS*-* Hepatology Clinic JIMBO Jesus [address] [phone] Social History Tobacco Use Types Packs/Day Years Used Date Smoking Tobacco: Every Day Cigarettes 0.3 10 Smokeless Tobacco: Never Comments: 5-8 cigarettes a day Alcohol Use Standard Drinks/Week Comments Yes 0 (1 standard drink = 0.6 oz pure alcoho l) drinking a pint of vodka daily Sex Assigned at Date Recorded Female 01/14/2020 10:57 AM BLANKET WASHER COVID-19 Exposure Response Date Recorded In the last month, have you been in contact with No / Unsure 02/28/2020 9:23 AM BLANKET WASHER someone who was confirmed or suspected to have Coronavirus / COVID-19? documented as of this encounter Miscellaneous Notes Telephone Encounter - Carie Ford Maycol - 03/01/2020 8:17 AM CST RECORDS RECEIVED FROM: Internal Appt Date: 03.03.2020 NOTES STATUS DETAILS OFFICE NOTE from referring provider Internal 02.28.2020 Juanis Levi MD OFFICE NOTES from other specialists Care Everywhere 08.25.2019 Leslie Rasheed D.O. [place] DISCHARGE SUMMARY from hospital Internal 07.04.2018 Joycelyn [...] N/A HEPATITIS B CORE ANTIBODY Internal 12.13.2016 KET WASHER documented in this encounter Plan of Treatment Upcoming Encounters Date Type Specialty Care Team Description 12/20/2021 Office Visit Wound Care Luis Camara DPM [address] [place], [place] [phone] (Wo rk) 01/21/2022 PRE VISIT Gastroenterology Landon Warren, *-*HEATHER Barriga RECORDS*-* MD Luis Fernando [address] [facility] [address] [place], [place] [address]605 (Wo rk) 01/21/2022 Office Visit Gastroenterology Juanis Levi [address] [place] [address] [place] [phone] Luis Fernando Miles MD [address] [facility] [place] [address] documented as of this encounter Visit Diagnoses Not on filedocumented in this encounter Additional Health Concerns Assessment Noted Time PHQ-9 Depression Total Score: 6 12/27/2019 9:38 AM BLANKET WASHER documented as of this encounter Care Teams Founder And Chief Executive Officer Relationship Specialty Start Date End Date Clinic, [facility] PCP - General 01/20/18 06/28/21 [address] [place], [place] [phone] Stephani Pina APRN GLOBAL SAFETY OFFICER Assigned PCP 01/30/20 12/30/20 [address] [facility] [address] [place], [place] [phone] documented as of this encounter
--- OUTSIDE RECORDS SUMMARY | 2021-12-14 16:19 | XMS_ITS | Encounter Summary ---
:1980 Author Organization [place] Address [facility] [place] [address] Care Team Providers Name Role Phone Clinic, [facility] Primary Care Provide r YovaniStephani APRN LAST PUTTER AWAY Unavailable Encounter Details Date Type Department Care Team Description 06/21/2020 Telephone [facility] Generic, Behavioral Behavioral Health In abigail Rivera MD [address] [place] [address] Social History Tobacco Use Types Packs/Day Years Used Date Smoking Tobacco: Every Day Cigarettes 0.3 10 Smokeless Tobacco: Never Comments: 5-8 cigarettes a day Alcohol Use Standard Drinks/Week Comments Not Currently 0 (1 standard drink = 0.6 oz pure drinki ng a pint of vodka daily alcohol) Sex Assigned at Date Recorded Female 01/14/2020 10:57 AM LIQUID FERTILIZER SERVICER COVID-19 Exposure Response Date Recorded In the [...] ----- Regarding: Add appointments for client at [facility] Patient Name: ??See above Location of programming: [facility] Start Date: 06/20/20 Group: ([id number] T 5:30PM Provider: OLGA Baron Number of visits to be scheduled: 4 Length/Duration of Appointment in minutes: 120 Visit Type (VIDEO/TELEPHONE/IN-PERSON): Video ([id number]) Additional notes: Thanks OLGA Baron documented in this encounter Plan of Treatment Upcoming Encounters Date Type Specialty Care Team Description 12/20/2021 Office Visit Wound Care Luis Camara, CALVIN [address] [place], [place] [phone] (Wo rk) 01/21/2022 PRE VISIT Gastroenterology Landon Warren, *-*WANDAIN G RECORDS*-* MD Luis Fernando [address] [place] [phone] (Wo rk) 01/21/2022 Office Visit Gastroenterology Juanis Levi [address] [place] [phone] Luis Fernando Miles MD [address] [place] [address] documented as of this encounter Visit Diagnoses Diagnosis Alcohol abuse, continuous - Primary Nondependent alcohol abuse, continuous d rinking behavior documented in this encounter Additional Health Concerns Assessment Noted Time PHQ-9 Depression Total Score: 6 12/27/2019 9:38 AM LIQUID FERTILIZER SERVICER documented as of this encounter Care Teams Household Appliances Salesperson Relationship Specialty Start Date End Date Clinic, [facility] PCP - General 01/20/18 06/28/21 [address] [place] [address] Stephani Pina APRN LAST PUTTER AWAY Assigned PCP 01/30/20 12/30/[address] [place] [address] 700 [place] [address] documented as of this encounter
--- OUTSIDE RECORDS SUMMARY | 2021-12-14 16:19 | XMS_ITS | Encounter Summary ---
:1980 Author Organization [place] Address [address] [place] [address] Care Team Providers Name Role Phone Clinic, [facility] Primary Care Provide r Guerita Haasdia Sanju SEWING MACHINE OPERATOR FLOORPERSON COMBINATION WELDER Unavailable [phone] Encounter Details Date Type Department Care [...] at Date Recorded Female 01/14/2020 10:57 AM JIG MILL OPERATOR COVID-19 Exposure Response Date Recorded In the last month, have you been in contact with No / Unsure 12/27/2019 7:20 AM JIG MILL OPERATOR someone who was confirmed or suspected to have Coronavirus / COVID-19? documented as of this encounter Plan of Treatment Upcoming Encounters Date Type Specialty Care Team Description 12/20/2021 Office Visit Wound Care Luis Camara DPM [address] [place] [address] (Wo rk) 01/21/2022 PRE VISIT Gastroenterology Landon Warren, *-*WANDAIN G RECORDS*-* MD Luis Fernando 516 [facility] [address] [place] [address] (Reinaldo molina) 01/21/2022 Office Visit Gastroenterology Juanis Levi [address] [place] [address] Luis Fernando Miles MD [address] [facility] [place], [place] [address] documented as of this encounter Visit Diagnoses Not on filedocumented in this encounter Additional Health Concerns Assessment Noted Time PHQ-9 Depression Total Score: 6 12/27/2019 9:38 AM JIG MILL OPERATOR documented as of this encounter Care Teams Tool Honing Machine Set Up Operator Relationship Specialty Start Date End Date Clinic, [facility] PCP - General 01/20/18 06/28/[address] [place] [address] [phone] Tatyana Haas APRN COMBINATION WELDER Assigned PCP 08/02/18 01/29/20 [facility] [address] [facility] [address] [place] [address] documented as of this encounter
--- OUTSIDE RECORDS SUMMARY | 2021-12-14 16:19 | XMS_ITS | Encounter Summary ---
:1980 Author Organization [place] Address [facility] [place] [address] Care Team Providers Name Role Phone Clinic, [facility] Primary Care Provide r Tatyana Haas Sanju EXECUTIVE DIRECTOR SHELTERED WORKSHOP DEPUTY SHERIFF CUSTODY Unavailable [phone] Reason for Visit Reason Comments Alcohol Intoxication Encounter Details Date Type Department Care Team Description 02/28/2019 Emergency [facility] Eliud Manley, Alcohol withdrawal [facility] Emergency MD syndrome without Dept [facility] complication (H) [address] [place], [place] [address] [address] [place] [address] [place] [address] (Wo rk) Social History Tobacco Use Types Packs/Day Years Used Date Smoking Tobacco: Every Day Cigarettes 0.3 10 Smokeless Tobacco: Never Comments: 5-8 cigarettes a day Alcohol Use Standard Drinks/Week Comments Not Currently 0 (1 standard drink = 0.6 oz pure alcoho l) sober 16 days Sex Assigned at Date Recorded Female 01/14/2020 10:57 AM RUBBER DOWN documented as of this encounter Last Filed Vital Signs Vital Sign Reading Time Taken Comments Blood Pressure 117/76 02/28/2019 6:30 PM RUBBER DOWN Pulse 92 02/28/2019 6:30 PM RUBBER DOWN Temperature 37 ??C (98.6 ??F) 02/28/2019 1:43 PM RUBBER DOWN Respiratory Rate 20 02/28/2019 1:43 PM RUBBER DOWN Oxygen Saturation 99% 02/28/2019 6:30 PM RUBBER DOWN Inhaled Oxygen Concentration - - Weight 83.6 kg (184 lb 4.9 oz) 02/28/2019 1:43 PM RUBBER DOWN Height - - Body Mass Index 29.75 07/04/2018 9:43 PM CDT documented in this encounter Discharge Instructions Discharge InstructionsEliud Manley MD - 02/28/2019 5:37 PM RUBBER DOWN Please proceed to detox and follow-up with alcohol counseling when released. Please return to the emergency department as needed for new or worsening symptoms including thoughtsof self-harm or suicide, thoughts of harming other people, any other concerning symptoms. ER DOWN documented in this encounter Medications at Time [...] Pt states last drink was 1300 today ER DOWN Eliud Manley MD - 02/28/2019 1:33 PM [...] Past Surgical History: Breast surgery section x2 TRAIN RESERVATION CLERK Surgery Orthopedic surgery Thoracic surgery Family History: Depression Psychotic disorder Cerebrovascular disease [place] Asthma Social History: The patient was accompanied [...] and subsequently transported in stable condition.Patient and [id number] counseled on results, diagnosis and disposition. They are understanding and agreeable to plan. Diagnosis: ICD-10-CM 1. Alcohol withdrawal syndrome without complication (H) F10.230 Disposition: Patient sent to detox. Scribe Disclosure: IMahsa, am serving as a scribe at 3:34 PM on 02/28/2019 to document services personally performed by Eliud Manley MD based on my observations and the provider's statements to me. Mahsa Walsh 02/28/2019 [facility] Eliud Manley MD 03/02/19 9168 ER DOWN documented in this encounter Plan of Treatment Upcoming Encounters Date Type Specialty Care Team Description 12/20/2021 Office Visit Wound Care Luis Camara DPM [address] [place], [place] [address] (Reinaldo molina) 01/21/2022 PRE VISIT Gastroenterology Landon Warren, *-*HEATHER G RECORDS*-* MD Luis Fernando 516 [facility] 2[address] [place], [place] [phone] (Reinaldo molina) 01/21/2022 Office Visit Gastroenterology Juanis Levi [address] [place] [address] Luis Fernando Miles MD [address] [facility] [address] [place] [address] documented as of this encounter Procedures Procedure Name Priority Date/Time Associated Comments Diagnosis XR CHEST 2 VIEWS STAT 02/28/2019 4:29 PM Resul ts for this RUBBER DOWN procedure are i n the results section. CBC WITH PLATELETS & STAT 02/28/2019 3:57 PM R esults for this DIFFERENTIAL RUBBER DOWN procedure are i n the results section. INR STAT 02/28/2019 3:57 PM Results f or this RUBBER DOWN procedure are i n the results section. LIPASE STAT 02/28/2019 3:57 PM Results f or this RUBBER DOWN procedure are i n the results section. COMPREHENSIVE STAT 02/28/2019 3:57 PM Results for this METABOLIC PANEL RUBBER DOWN procedure ar e in the results section. ETHYL ALCOHOL LEVEL STAT 02/28/2019 3:57 PM Re sults for this RUBBER DOWN procedure are i n the results section. documented in this encounter Results XR Chest 2 Views (02/28/2019 4:29 PM RUBBER DOWN) Anatomical Region Laterality Modality Chest Digital Radiography Specimen (Source) Anatomical Location Collection Method / Collectio n Time Received Time / Laterality Volume Impressions 02/28/2019 6:42 PM RUBBER DOWN IMPRESSION: No evidence of acute cardiopulmonary disease is seen. CAIO TERRAZAS MD Narrative 02/28/2019 6:42 PM RUBBER DOWN CHEST TWO VIEW ?? 02/28/2019 4:29 PM [...] IMAGING ORDER JEFFERY INR (02/28/2019 3:57 PM RUBBER DOWN) athologist Signature INR 0.92 0.86 - 1.14 02/28/2019 [facility] 4:34 PM [facility] Specimen Anatomical Collection Method Collection Time Receive d Time (Source) Location / / Volume Laterality Blood specimen 02/28/2019 3:57 PM 020 4:05 (specimen) RUBBER DOWN PM RUBBER DOWN Eliud Manley MD LAB - BLOOD ORDERABLES Performing Organization Address [facility] Phon e Number [facility] [address] [address] [place] [address] [address] [place] [id number] [phone], [facility] [phone] (ABNORMAL) Alcohol ethyl (02/28/2019 3:57 PM RUBBER DOWN) athologist Signature Ethanol g/dL 0.22 (H) <0.01 g/dL 02/28/2019 [place] 4:34 PM [facility] Specimen Anatomical Collection Method Collection Time Receive d Time (Source) Location / / Volume Laterality Blood specimen 02/28/2019 3:57 PM 020 4:05 (specimen) RUBBER DOWN PM RUBBER DOWN Eliud Manley MD LAB - BLOOD ORDERABLES Performing Organization Address [facility] Phon e Number [facility] [address] [address] [facility] [address] [address] 7[facility] [phone] Lipase (02/28/2019 3:57 PM RUBBER DOWN) athologist Signature Lipase 145 73 - 393 02/28/2019 [facility] U/L 4:34 PM [facility] Specimen Anatomical Collection Method Collection Time Receive d Time (Source) Location / / Volume Laterality Blood specimen 02/28/2019 3:57 PM 020 4:05 (specimen) RUBBER DOWN PM RUBBER DOWN Eliud Manley MD LAB - BLOOD ORDERABLES Performing Organization Address City/State/ZIP Code Phon e Number [place] [address] [address] [place], [place] [address] [facility] [address] [address] 7[facility] [phone] (ABNORMAL) Comprehensive metabolic panel (02/28/2019 3:57 PM RUBBER DOWN) athologist Signature Sodium 140 133 - 144 02/28/2019 [place] mmol/L 4:25 PM [facility] Potassium 3.7 3.4 - 5.3 02/28/2019 [place] mmol/L 4:25 PM [facility] Chloride 106 94 - 109 02/28/2019 [place] mmol/L 4:25 PM [facility] Carbon Dioxide 28 20 - 32 02/28/2019 [place] mmol/L 4:32 PM [facility] Anion Gap 6 3 - 14 02/28/2019 [place] mmol/L 4:32 PM [facility] Glucose 156 (H) 70 - 99 02/28/2019 [place] mg/dL 4:32 PM [facility] Urea Nitrogen 9 7 - 30 02/28/2019 [place] mg/dL 4:32 PM [facility] Creatinine 0.72 0.52 - 02/28/2019 [facility] 1.04 mg/dL 4:32 PM [facility] GFR Estimate >90 >60 02/28/2019 [place] mL/min/{1. 4:32 PM [facility] 73_m2} HOSPITAL Comment: Non GFR Calc Starting 02/03/2018, serum creatinine ba sed estimated GFR (eGFR) will be calculated using the Chronic Kidney Dise [facility] Epidemiology Collaboration (CKD-EPI) equation. GFR Estimate If >90 >60 mL/min/{1.73_m2} 02/28/2019 4: 32 PM [facility] Comment: GFR Calc Starting 02/03/2018, serum creatinine ba sed estimated GFR (eGFR) will be calculated using the Chronic Kidney Dise [place] Epidemiology Collaboration (CKD-EPI) equation. Calcium 8.8 8.5 - 10.1 02/28/2019 4:32 PM [facility] mg/dL [facility] Bilirubin Total 0.5 0.2 - 1.3 mg/dL 02/28/2019 4:[address] [facility] Albumin 3.8 3.4 - 5.0 g/dL 02/28/2019 4:34 PM [facility] Protein Total 8.5 6.8 - 8.8 g/dL 02/28/2019 4:34 PM [facility] Alkaline Phosphatase 155 (H) 40 - 150 U/L 02/28/2019 4:[address] [facility] ALT 137 (H) 0 - 50 U/L 02/28/2019 4:34 PM [facility] AST 194 (H) 0 - 45 U/L 02/28/2019 4:34 PM [facility] Specimen Anatomical Collection Method Collection Time Receive d Time (Source) Location / / Volume Laterality Blood specimen 02/28/2019 3:57 PM 020 4:05 (specimen) RUBBER DOWN PM [facility] Eliud Manley MD LAB - BLOOD ORDERABLES Performing Organization Address City/State/ZIP Code Phon e Number [place] [address] [facility] [address] [phone] (ABNORMAL) CBC with platelets differential (02/28/2019 3:57 PM [facility]) [facility] Method Time Signature WBC 2.3 (L) 4.0 - 02/28/2019 [facility] 11.0 4:11 PM [facility] 10e9/L [facility] RBC Count 4.22 3.8 - 5.2 02/28/2019 [facility] 10e12/L 4:11 PM [facility] Hemoglobin 14.1 11.7 - 02/28/2019 [facility] 15.7 g/dL 4:11 PM [facility] Hematocrit 41.7 35.0 - 02/28/2019 [facility] 47.0 % 4:11 PM [facility] MCV 99 78 - 100 02/28/2019 [facility] fl 4:11 PM [facility] MCH 33.4 (H) 26.5 - 02/28/2019 [facility] 33.0 pg 4:11 PM [facility] MCHC 33.8 31.5 - 02/28/2019 [facility] 36.5 g/dL 4:11 PM [facility] RDW 13.0 10.0 - 02/28/2019 [facility] 15.0 % 4:11 PM [facility] Platelet Count 96 (L) 150 - 450 02/28/2019 [facility] 10e9/L 4:11 PM [facility] Diff Method Automated 02/28/2019 [facility] Method 4:11 PM [facility] % Neutrophils 62.0 % 02/28/2019 [facility] 4:11 PM [facility] % Lymphocytes 32.8 % 02/28/2019 [facility] 4:11 PM [facility] % Monocytes 3.5 % 02/28/2019 [facility] 4:11 PM [facility] % Eosinophils 0.4 % 02/28/2019 [facility] 4:11 PM [facility] % Basophils 0.9 % 02/28/2019 [facility] 4:11 PM [facility] % Immature 0.4 % 02/28/2019 [facility] Granulocytes 4:11 PM [facility] Nucleated RBCs 0 0 /100 02/28/2019 [facility] 4:11 PM [facility] Absolute 1.4 (L) 1.6 - 8.3 02/28/2019 [facility] Neutrophil 10e9/L 4:11 PM [facility] Absolute 0.8 0.8 - 5.3 02/28/2019 [facility] Lymphocytes 10e9/L 4:11 PM [facility] Absolute 0.1 0.0 - 1.3 02/28/2019 [facility] Monocytes 10e9/L 4:11 PM [facility] Absolute 0.0 0.0 - 0.7 02/28/2019 [facility] Eosinophils 10e9/L 4:11 PM [facility] Absolute 0.0 0.0 - 0.2 02/28/2019 [facility] Basophils 10e9/L 4:11 PM [facility] Abs Immature 0.0 0 - 0.4 02/28/2019 [facility] Granulocytes 10e9/L 4:11 PM RUBBER DOWN [facility] Absolute 0.0 02/28/2019 [place] Nucleated RBC 4:11 PM RUBBER DOWN [facility] Specimen Anatomical Collection Method Collection Time Receive d Time (Source) Location / / Volume Laterality Blood specimen 02/28/2019 3:57 PM 020 4:05 (specimen) RUBBER DOWN PM RUBBER DOWN Eliud Manley MD LAB - BLOOD ORDERABLES Performing Organization Address City/State/ZIP Code Phon e Number [place] [address] [address] [place], [place] [address] [facility] [address] [place], [place] [address] [phone] documented in this encounter Visit Diagnoses Diagnosis Alcohol withdrawal syndrome without comp lication (H) documented in this encounter Administered Medications Inactive Administered Medications - up to 3 most recent administrations Medication Order MAR Action Action Date Dose Rate Site LORazepam (ATIVAN) injection 1 mg Given 02/28/2019 4:10 PM RUBBER DOWN 1 mg 1 mg, Intravenous, ONCE, On 02/28/19 at 1547, For 1 dose, This drug may cause significant respiratory depression. Monitor respiratory status and vital signs carefully for 1 hour after each dose. oxymetazoline (AFRIN) 0.05 % spray 2 spr ay Given 02/28/2019 4:10 PM RUBBER DOWN 2 sprays 2 spray, Nasal, ONCE, On 02/28/19 at 1551, For 1 dose, Use for more than 3 consecutive days may cause rebound vasodilation. sodium chloride 0.9 % 1,000 mL with New Bag 02/28/2019 4:19 PM RUBBER DOWN 1000 mL/hr Infuvite Adult 10 mL, thiamine 100 mg, folic acid 1 mg infusion 1,000 mL, at 1,000 mL/hr, Intravenous, ONCE, 1 dose, On 02/28/19 at 1547 documented in this encounter Active and Recently Administered Medications Times are shown in RUBBER DOWN. Scheduled Medication Order 02/26/2019 02/27/2019 02/28/2019 LORazepam [...] (Ne w Bag - Provider: Tarsha Lange, GENRAO)[id number] (Stopped - Provider: Nga Pina RN) 1,000 mL, at 1,000 mL/hr, Intravenous, ONCE, 1 dose, On Sun 02/28 at 1547 documented in this encounter Additional Health Concerns Assessment Noted Time PHQ-9 Depression Total Score: 10 07/08/2018 1:27 PM CD T documented as of this encounter Care Teams Commercial Lender Relationship Specialty Start Date End Date Clinic, [facility] PCP - General 01/20/18 06/28/[address] [place] [address] Tatyana Haas APRN DEPUTY SHERIFF CUSTODY Assigned PCP 08/02/18 01/29/20 [place] [facility] [address] [facility] [address] [place] [address] documented as of this encounter
--- OUTSIDE RECORDS SUMMARY | 2021-12-14 16:19 | XMS_ITS | Encounter Summary ---
:1980 Author Organization [place] Address [address] [place] [address] Care Team Providers Name Role Phone Clinic, [facility] Primary Care Provide r Stephani Pina Kim YANES LOGGING EQUIPMENT OPERATOR Unavailable Reason for Visit Reason Onset Date Comments Erroneous encounter-disregard 03/07/2020 Encounter Details Date Type Department Care Team Description 03/03/2020 Virtual Visit [facility] Inocencio Newberry ERRONEOUS Hepatology Clinic JIMBO Jesus ENCOUNTER--DISREGARD [address] (Primary Dx) [address] [place] [phone] Social History Tobacco Use Types Packs/Day Years Used Date Smoking Tobacco: Every Day Cigarettes 0.3 10 Smokeless Tobacco: Never Comments: 5-8 cigarettes a day Alcohol Use Standard Drinks/Week Comments Yes 0 (1 standard drink = 0.6 oz pure alcoho l) drinking a pint of vodka daily Sex Assigned at Date Recorded Female 01/14/2020 10:57 AM EVENT MARKETING SPECIALIST COVID-19 Exposure Response Date Recorded In the last month, have you been in contact with No / Unsure 02/28/2020 9:23 AM EVENT MARKETING SPECIALIST someone who was confirmed or suspected to have Coronavirus / COVID-19? documented as of this encounter Progress Notes Violeta Mckay CMA - 03/03/2020 9:45 AM CST Not feeling well and asked to be rescheduled for next week. Violeta Mckay CMA T MARKETING SPECIALIST Inocencio Newberry PA-C - 03/03/2020 9:45 AM CST This encounter was opened in error. Please disregard. T MARKETING SPECIALIST documented in this encounter Plan of Treatment Upcoming Encounters Date Type Specialty Care Team Description 12/20/2021 Office Visit Wound Care Luis Camara, [place] [address] [place] [address] (Wo rk) 01/21/2022 PRE VISIT Gastroenterology Landon Warren, *-*WANDAIN G RECORDS*-* MD Luis Fernando [address] [place] [address] (Wo rk) 01/21/2022 Office Visit Gastroenterology Juanis Levi [address] [place] [phone] Luis Fernando iMles MD [address] [place] [address] documented as of this encounter Visit Diagnoses Diagnosis ERRONEOUS ENCOUNTER--DISREGARD - Primary documented in this encounter Additional Health Concerns Assessment Noted Time PHQ-9 Depression Total Score: 6 12/27/2019 9:38 AM EVENT MARKETING SPECIALIST documented as of this encounter Care Teams Teacher Counselor Relationship Specialty Start Date End Date Clinic, [facility] PCP - General 01/20/18 06/28/21 [facility] [place] [address] Stephani Pina APRN LOGGING EQUIPMENT OPERATOR Assigned PCP 01/30/20 12/30/[address] [place] [address] documented as of this encounter
--- OUTSIDE RECORDS SUMMARY | 2021-12-14 16:19 | XMS_ITS | Encounter Summary ---
:1980 Author Organization [place] Address formerly [facility] [place] [address] Care Team Providers Name Role Phone Clinic, [facility] Primary Care Provide r Eufemai Pinadelon Alvarez APRN LOSS PREVENTION GUARD Unavailable Encounter Details Date Type Department Care Team Description 03/28/[address] [facility] Generic, Behavioral Behavioral Health In abigail Rivera MD [address] [place] [address] Social History Tobacco Use Types Packs/Day Years Used Date Smoking Tobacco: Every Day Cigarettes 0.3 10 Smokeless Tobacco: Never Comments: 5-8 cigarettes a day Alcohol Use Standard Drinks/Week Comments Yes 0 (1 standard drink = 0.6 oz pure alcoho l) drinking a pint of vodka daily Sex Assigned at Date Recorded Female 01/14/2020 10:57 AM WARD NURSE COVID-19 Exposure Response Date Recorded In [...] KRYSTA Phase II appointment for client at [facility] Patient Name: ??See above Location of programming: [facility] Start Date: 05/18/2020 Group: ([id number] TH 5:30PM Provider: OLGA Baron Number of visits to be scheduled: 1 Length/Duration of Appointment in minutes: 120 Visit Type (VIDEO/TELEPHONE/IN-PERSON): Video (8789) Additional notes: Thanks OLGA Baron Telephone Encounter - Triston Cameron - 05/10/2020 8:17 AM CDT ----- Message from OLGA Deshpande sent at 05/09/2020 7:28 PM CDT ----- Regarding: Add 1 IOP KRYSTA Phase II appointment for client at [facility] Patient Name: ??See above Location of programming: [facility] [place] Start Date: 05/11/20 Group: ([id number] TH Provider: OLGA Baron Number of visits to be scheduled: 1 Length/Duration of Appointment in minutes: 120 Visit Type (VIDEO/TELEPHONE/IN-PERSON): Video ([id number]) Additional notes: OLGA Baron Telephone Encounter - Brittnee Lainez - 04/21/2020 3:34 PM CST ----- Message from OLGA Deshpande sent at 04/21/2020 3:16 PM WARD NURSE ----- Regarding: Set up IOP Phase III appointments for client at [facility] Patient Name: ??See above Location of programming: [facility] Start Date: 04/25/20 Group: ([id number] T 5:30PM Provider: OLGA Baron Number of visits to be scheduled: 8 Length/Duration of Appointment in minutes: 120 Visit Type (VIDEO/TELEPHONE/IN-PERSON): Video ([id number]) Additional notes: OLGA Jacobson NURSE Telephone Encounter - Brittnee Lainez - 04/21/2020 3:24 PM CST ----- Message from OLGA Deshpande sent at 04/21/2020 3:15 PM WARD NURSE ----- Regarding: Cancel all future mixed IOP KRYSTA Phase II appointments at [facility] Please arrange to cancel all future mixed IOP KRYSTA Phase II appointments for the above client at the [facility] effective immediately. [id number]. Client will begin Phase III next week. Thanks OLGA Baron NURSE Telephone Encounter - Britton Goodwin LADC - 04/05/2020 4:29 PM CST Received call from Aarti Tirado [facility]. CPS worker regarding getting notes regarding client. Indicated she would fax GIOVANNA to me. Aarti asked me specifically about client sobriety since client has not come in to [facility] for required breath tests. I reported that [...] information whatever their protocol indicates. OLGA Baron NURSE Telephone Encounter - Allie Aguilera - 03/28/2020 4:49 PM CST ----- Message from OLGA Deshpande sent at 03/28/2020 3:38 PM WARD NURSE ----- Regarding: Set up 1:1 appointment for client with me via video at [facility] Please arrange a 1:1 video (0102) appointment with me for the above client for March 29 at 1PM. My provider ID is; [id number]. Thanks OLGA Baron NURSE documented in this encounter Plan of Treatment Upcoming Encounters Date Type Specialty Care Team Description 12/20/2021 Office Visit Wound Care Yamileth Camaraon Lex, DPM [address] [place] [address] (Wo rk) 01/21/2022 PRE VISIT Gastroenterology Landon Warren, *-*WANDAIN G RECORDS*-* MD Luis Fernando [address] [facility] [address] [place], [place] [address] (Wo rk) 01/21/2022 Office Visit Gastroenterology Juanis Levi [address] [place] [phone] Luis Fernando Miles MD [address] [address] documented as of this encounter Visit Diagnoses Diagnosis Alcohol abuse, continuous - Primary Nondependent alcohol abuse, continuous d rinking behavior documented in this encounter Additional Health Concerns Assessment Noted Time PHQ-9 Depression Total Score: 6 12/27/2019 9:38 AM WARD NURSE documented as of this encounter Care Teams Log Skidder Relationship Specialty Start Date End Date Clinic, [facility] PCP - General 01/20/18 06/28/[address] [place] [address] Stephani Pina, RIVER CROSSING SUPERVISOR LOSS PREVENTION GUARD Assigned PCP 01/30/20 12/30/[id number] [id number] documented as of this encounter
--- OUTSIDE RECORDS SUMMARY | 2021-12-14 16:19 | XMS_ITS | Encounter Summary ---
:1980 Author Organization [place] Address [address] [facility] [place] [address] Care Team Providers Name Role Phone Clinic, [facility] Primary Care Provide r Tatyana Haas Sanju ALUMNI RELATIONS OFFICER THERAPIST OCCUPATIONAL Unavailable [phone] Encounter Details Date Type Department Care [...] at Date Recorded Female 01/14/2020 10:57 AM EXTRACTOR PLANT OPERATOR documented as of this encounter Plan of Treatment Upcoming Encounters Date Type Specialty Care Team Description 12/20/2021 Office Visit Wound Care Luis Camara DPM [address] [place], [place] [address] (Wo rk) 01/21/2022 PRE VISIT Gastroenterology Landon Warren, *-*HEATHER Barriga RECORDS*-* MD Luis Fernando [address] [facility] [address] [place], [place] [address] (Wo rk) 01/21/2022 Office Visit Gastroenterology Junais Levi [address] [place] [address] Luis Fernando Miles MD [address] [facility] [address] [place], [place] [address] documented as of this encounter Visit Diagnoses Not on filedocumented in this encounter Additional Health Concerns Assessment Noted Time PHQ-9 Depression Total Score: 10 07/08/2018 1:27 PM CD T documented as of this encounter Care Teams Negotiations Director Relationship Specialty Start Date End Date Clinic, [facility] PCP - General 01/20/18 06/28/[address] [place] [address] Tatyana Haas APRN THERAPIST OCCUPATIONAL Assigned PCP 08/02/18 01/29/20 [facility] [address] [facility] [address] [place], [place] [address] documented as of this encounter
--- OUTSIDE RECORDS SUMMARY | 2021-12-14 16:19 | XMS_ITS | Encounter Summary ---
:1980 Author Organization [place] Address [address] [place] [address] Care Team Providers Name Role Phone Clinic, [facility] Primary Care Provide r Stephani Pina Kim LEON FISH GRADER Unavailable [phone] Encounter Details Date Type Department Care [...] at Date Recorded Female 01/14/2020 10:57 AM SOLUTION CONSULTANT COVID-19 Exposure Response Date Recorded In the last month, have you been in contact with No / Unsure 02/28/2020 9:23 AM SOLUTION CONSULTANT someone who was confirmed or suspected to have Coronavirus / COVID-19? documented as of this encounter Plan of Treatment Upcoming Encounters Date Type Specialty Care Team Description 12/20/2021 Office Visit Wound Care Luis Camara DPM [address] [place] [address] (Reinaldo molina) 01/21/2022 PRE VISIT Gastroenterology Landon Warren, *-*WANDAIN G RECORDS*-* MD Luis Fernando [address] [address] (Wo rk) 01/21/2022 Office Visit Gastroenterology Juanis Levi [address] [place] [address] Luis Fernando Miles MD [address] [facility] [address] [place], [place] [address] documented as of this encounter Visit Diagnoses Not on filedocumented in this encounter Additional Health Concerns Assessment Noted Time PHQ-9 Depression Total Score: 6 12/27/2019 9:38 AM SOLUTION CONSULTANT documented as of this encounter Care Teams Credit Coordinator Relationship Specialty Start Date End Date Clinic, [facility] PCP - General 01/20/18 06/28/[address] [place] [address] Stephani Pina APRN FISH GRADER Assigned PCP 01/30/20 12/30/20 [address] [facility] [address] [place] [address] documented as of this encounter
--- OUTSIDE RECORDS SUMMARY | 2021-12-14 16:19 | XMS_ITS | Encounter Summary ---
:1980 Author Organization [place] Address [facility] [place] [address] Care Team Providers Name Role Phone Clinic, [facility] Primary Care Provide r Tatyana Haas DOWEL PIN MAN HOB MACHINE OPERATOR Unavailable [phone] Stephani Pina DOWEL PIN MAN HOB MACHINE OPERATOR Unavailable [phone] Tatyana Haas DOWEL PIN MAN HOB MACHINE OPERATOR Unavailable [phone] Stephani Pina DOWEL PIN MAN HOB MACHINE OPERATOR Unavailable [phone] Juanis Levi Primary Care Provider Elsa Yeh RN Unavailable Unavailable Rogelio Treadwell MD Unavailable [phone] Luis Camara DPM Unavailable [phone] Camryn Christina MD Unavailable Sintia Lange PA-C Unavailable Luis Fernando Miles MD Unavailable [phone] Reason for Visit Reason Onset Date Comments MH/CD Inpatient 01/11/2020 Encounter Details Date Type Department Care Team Description 01/11/2020 Telephone [facility] Generic, Behavioral MH/ CD Inpatient Behavioral Health In abigail Rivera MD [address] [place] [address] Social History Tobacco Use Types Packs/Day Years Used Date Smoking Tobacco: Every Day Cigarettes 0.3 10 Smokeless Tobacco: Never Comments: 5-8 cigarettes a day Alcohol Use Standard Drinks/Week Comments Yes 0 (1 standard drink = 0.6 oz pure alcoho l) drinking a pint of vodka daily Sex Assigned at Date Recorded Female 01/14/2020 10:57 AM RN POST PARTUM COVID-19 Exposure Response Date Recorded In the last month, have you been in contact with No / Unsure 01/11/2020 8:00 PM RN POST PARTUM someone who was confirmed or suspected to have Coronavirus / COVID-19? documented as of this encounter Miscellaneous Notes Telephone Encounter - Rocio Messer - 01/11/2020 10:22 PM CST S: Pt is a 39 yr old fem in [facility] for detox from alcohol report by [...] and ready for behavioral bed placement: Yes [facility] documented in this encounter Plan of Treatment Upcoming Encounters Date Type Specialty Care Team Description 12/20/2021 Office Visit Wound Care Luis Camara DPM [address] [place] [address] (Wo rk) 01/21/2022 PRE VISIT Gastroenterology Landon Warren, *-*HEATHER Barriga RECORDS*-* MD Luis Fernando [address] [facility] [address] [place] [address] (Wo rk) 01/21/2022 Office Visit Gastroenterology Juanis Levi [address] [place] [address] Luis Fernando Miles MD [address] [facility] [address] [place] [address] documented as of this encounter Visit Diagnoses Not on filedocumented in this encounter Additional Health Concerns Infection Onset Date Last Indicated Resolved Time MRSAComment: Added from external infection. 11/07/201406/18 Assessment Noted Time PHQ-9 Depression Total Score: 6 12/27/2019 9:38 AM RN POST PARTUM documented as of this encounter Care Teams Ham Stringer Relationship Specialty Start Date End Date Clinic, [facility] PCP - General 01/20/[address] [id number] Juanis Levi PCP - General Addiction Medicine 06/29/21 [address] [place] [phone] Tatyana Haas, Assigned PCP 08/02/18 01/29/20 DOWEL PIN MAN HOB MACHINE OPERATOR [facility] [address] [facility] [address] [place], [place] [address] Stephani Pina, Assigned PCP 01/30/20 12/30/20 DOWEL PIN MAN HOB MACHINE OPERATOR [address] [place], [place] [address] Tatyana Haas, Assigned PCP 12/31/20 02/24/21 DOWEL PIN MAN HOB MACHINE OPERATOR [facility] [address] [facility] [address] [place], [place] [address] Stephani Pina, Assigned PCP 02/25/21 DOWEL PIN MAN HOB MACHINE OPERATOR [address] [place] [address] Elsa Yeh, Registered Nurse Infectious Diseases 07/25/21 Rogelio Wilson Assigned Musculoskeletal 08/04/21 MD August Provider [address] [place], [place] [address] Luis Camara MD Podiatry 08/16/21 CALVIN Burnett [address] [place], [place] [address] Camryn Christina Assigned Surgical 09/01/21 09/07/21 MD Lexie Provider [address] [facility] [address] [place] [address] Sintia Lange PA-C Assigned Surgical 09/08/21 [address] [facility] [address]TH [place] [address] Landon Warren MD Gastroenterology 11/21/21 MD Luis Fernando [address] [facility] [address] [place] [address] documented as of this encounter
--- OUTSIDE RECORDS SUMMARY | 2021-12-14 16:20 | XMS_ITS | Encounter Summary ---
:1980 Author Organization [place] Address [address] [place] [address] Care Team Providers Name Role Phone Clinic, Formerly [facility] Primary Care Provide r Tatyana Haas Sanju DRUG DISCOVERY INFORMATICS SPECIALIST RV SERVICE TECHNICIAN Unavailable [phone] Reason for Visit Reason Comments Alcohol Problem Dizziness Encounter Details Date Type Department Care Team Description 08/23/2018 Emergency [facility] Loan Moise, PAMcC Dizziness; [facility] EMERGENCY PHYSICIANS Hyp omagnesemia; Dept PA Hypokalemia; [address] Alcohol withdrawal, uncomplicated (H) [place] [address] [phone] Social History Tobacco Use Types Packs/Day Years Used Date Smoking Tobacco: Every Day Cigarettes 0.3 10 Smokeless Tobacco: Never Comments: 5-8 cigarettes a day Alcohol Use Standard Drinks/Week Comments Not Currently 0 (1 standard drink = 0.6 oz pure alcoho l) sober 16 days Sex Assigned at Date Recorded Female 01/14/2020 10:57 AM CATERING DIRECTOR documented as of this encounter Last [...] be sent through Care Everywhere. Alcohol Withdrawal (Nicaraguan)Hypokalemia (Nicaraguan)Hypomagnesemia, Discharge Instructions (Nicaraguan)documented in this encounter Medications at Time of [...] current or past drug history. PCP: Est[place]a, [facility] Medical [...] Prolonged QT Abnormal ECG Rate 80 bpm. HI interval 162 ms. QRS duration 94 ms. [...] observations and the provider's statements to me. [facility] EMERGENCY DEPARTMENT Loan Moise PA-C 08/23/182015 documented in this encounter Plan of Treatment Upcoming Encounters Date Type Specialty Care Team Description 12/20/2021 Office Visit Wound Care Luis Camara, CALVIN [address] [place] [address] (Reinaldo molina) 01/21/2022 PRE VISIT Gastroenterology Landon Warren, *-*WANDAIN G RECORDS*-* MD Luis Fernando [address] [place] [address] (Reinaldo molina) 01/21/2022 Office Visit Gastroenterology Juanis Levi [address] [place] [address] Luis Fernando Miles MD [address] [place] [address] documented as of this encounter Procedures Procedure [...] Signature HCG Qual Urine Negative NEG^Negati 08/23/2018 [facility] 12:52 PM CDT [facility] Comment: This test is for screening purposes. ??R esults should be interpreted along with the clinical picture. ??Confirmation te sting is available if warranted by ordering [id number], HCG Quantitative Pregna ncy. Specimen Anatomical Collection Method Collection Time Receive d Time (Source) Location / / Volume Laterality Urine specimen 08/23/2018 12:38 9 (specimen) PM CDT 12:43 PM CDT Loan Moise PA-C LAB - URINE ORDERABLES Performing Organization Address City/State/ZIP Code Phon e Number [facility] [address] [place], [place] [address] [facility] [address] [phone] (ABNORMAL) UA with Microscopic (08/23/2018 12:38 PM [facility]) [facility] Method Time Signature Color Urine Yellow 08/23/2018 [facility] 12:49 PM [facility] Appearance Urine Clear 08/23/2018 [facility] 12:49 PM [facility] Glucose Urine Negative NEG^Negat 08/23/2018 [facility] paula mg/dL 12:49 PM [facility] Bilirubin Urine Negative NEG^Negat 08/23/2018 [facility] paula 12:49 PM [facility] Ketones Urine Negative NEG^Negat 08/23/2018 [facility] [place]ula mg/dL 12:49 PM [facility] Specific [place] 1.017 1.003 - 08/23/2018 [facility] Urine 1.035 12:49 PM [facility] Blood Urine Negative NEG^Negat 08/23/2018 [facility] paula 12:49 PM [facility] pH Urine 7.5 (H) 5.0 - 7.0 08/23/2018 [facility] pH 12:49 PM [facility] Protein Albumin Negative NEG^Negat 08/23/2018 [facility] Urine paula mg/dL 12:49 PM [facility] Urobilinogen 8.0 (H) 0.0 - 2.0 08/23/2018 [facility] mg/dL mg/dL 12:49 PM [facility] Nitrite Urine Negative NEG^Negat 08/23/2018 [facility] [place]ula 12:49 PM [facility] Leukocyte Negative NEG^Negat 08/23/2018 [facility] Esterase Urine paula 12:49 PM [facility] Source Midstream 08/23/2018 [facility] Urine 12:39 PM [facility] WBC Urine <1 0 - 5 08/23/2018 [facility] /HPF 12:49 PM [facility] RBC Urine <1 0 - 2 08/23/2018 [facility] /HPF 12:49 PM [facility] Squamous 1 0 - 1 08/23/2018 [facility] Epithelial /HPF /HPF 12:49 PM [facility] Mucous Urine Present (A) NEG^Negat 08/23/2018 [facility] paula /LPF 12:49 PM [facility] Specimen (Source) Anatomical Collection Method Collection Time Re ceived Time Location / / Volume Laterality Examination of 08/23/2018 12:38 9 midstream urine PM CDT 12:43 PM CDT specimen (procedure) Loan Moise PA-C LAB - URINE ORDERABLES Performing Organization Address City/State/ZIP Code Phon e Number [facility] [address] [place], [place] [address] [facility] [address] [place] [address] [address] [phone] EKG 12-lead, tracing only (08/23/2018 12:25 PM CDT) Patholo gist Method Time Signature Interpretation ECG Click View RADIOLOGY Image link RESULTS to view waveform and result Specimen (Source) Anatomical Collection Method Collection Time Re ceived Time Location / / Volume Laterality 08/23/2018 12:25 PM CDT Loan Moise PA-C ECG ORDERABLES Performing Organization Address City/[facility]/ZIP Code Phon e Number RADIOLOGY RESULTS (ABNORMAL) Comprehensive metabolic panel (08/23/2018 12:22 PM CDT) P athologist Signature Sodium 138 133 - 144 08/23/2018 [facility] mmol/L 12:43 PM [facility] Potassium 3.1 (L) 3.4 - 5.3 08/23/2018 [facility] mmol/L 12:43 PM [facility] Chloride 103 94 - 109 08/23/2018 [facility] mmol/L 12:43 PM [facility] Carbon Dioxide 30 20 - 32 08/23/2018 [facility] mmol/L 12:50 PM [facility] Anion Gap 4 3 - 14 08/23/2018 [facility] mmol/L 12:50 PM [facility] Glucose 123 (H) 70 - 99 08/23/2018 [facility] mg/dL 12:50 PM [facility] Urea Nitrogen 5 (L) 7 - 30 08/23/2018 [facility] mg/dL 12:50 PM [facility] Creatinine 0.57 0.52 - 08/23/2018 [facility] 1.04 mg/dL 12:50 PM [facility] GFR Estimate >90 >60 08/23/2018 [facility] mL/min/{1. 12:50 PM [facility] 73_m2} HOSPITAL Comment: Non GFR Calc Starting 02/03/2018, serum creatinine ba sed estimated GFR (eGFR) will be calculated using the Chronic Kidney Dise [place] Epidemiology Collaboration (CKD-EPI) equation. GFR Estimate If >90 >60 mL/min/{1.73_m2} 08/23/2018 12 :50 PM [facility] Comment: GFR Calc Starting 02/03/2018, serum creatinine ba sed estimated GFR (eGFR) will be calculated using the Chronic Kidney Dise [place] Epidemiology Collaboration (CKD-EPI) equation. Calcium 8.8 8.5 - 10.1 08/23/2018 12:50 PM [facility]NOTE 2] mg/dL [facility] Bilirubin Total 1.6 (H) 0.2 - 1.3 mg/dL 08/23/2018 12:52 P [facility] Albumin 3.8 3.4 - 5.0 g/dL 08/23/2018 12:52 PM [facility] Protein Total 7.9 6.8 - 8.8 g/dL 08/23/2018 12:52 PM [facility] Alkaline Phosphatase 158 (H) 40 - 150 U/L 08/23/2018 12:52 PM [facility] ALT 192 (H) 0 - 50 U/L 08/23/2018 12:52 PM [facility] AST 242 (H) 0 - 45 U/L 08/23/2018 12:52 PM [facility] Specimen Anatomical Collection Method Collection Time Receive d Time (Source) Location / / Volume Laterality Blood specimen 08/23/2018 12:22 9 (specimen) PM CDT 12:30 PM CDT Loan Moise PA-C LAB - BLOOD ORDERABLES Performing Organization Address City/State/ZIP Code Phon e Number [place] [address] [place], [place] [address] [facility] [address] [place], [place] [address] [place] [address] (ABNORMAL) Magnesium (08/23/2018 12:22 PM CDT) athologist Signature Magnesium 1.4 (L) 1.6 - 2.3 08/23/2018 [place] mg/dL 12:52 PM [facility] Specimen Anatomical Collection Method Collection Time Receive d Time (Source) Location / / Volume Laterality Blood specimen 08/23/2018 12:22 9 (specimen) PM CDT 12:30 PM CDT Loan Moise PA-C LAB - BLOOD ORDERABLES Performing Organization Address City/[facility]/ZIP [facility] Phon e Number [facility] [address] [place], [place] [address] [place] [address] [address] [place], [place] [address] 7, [facility] [phone] Alcohol level blood (08/23/2018 12:22 PM CDT) athologist Signature Ethanol g/dL <0.01 <0.01 g/dL 08/23/2018 [place] 12:52 PM [facility] Specimen Anatomical Collection Method Collection Time Receive d Time (Source) Location / / Volume Laterality Blood specimen 08/23/2018 12:22 9 (specimen) PM CDT 12:30 PM CDT Loan Moise PA-C LAB - BLOOD ORDERABLES Performing Organization Address City/[facility] e Number [facility] [address] [place], [place] [address] [place] [address] [address] [place], [place] [address] 7, [facility] [phone] Troponin I (08/23/2018 12:22 PM CDT) athologist Signature Troponin I ES <0.015 0.000 - 08/23/2018 [place] 0.045 ug/L 12:54 PM [facility] Comment: The 99th percentile for [...] Code Phon e Number [place] [address] [place], [place] [address] [facility] [place] [address] [phone] (ABNORMAL) CBC with platelets differential (08/23/2018 12:22 PM CDT) [facility] Method Time Signature WBC 3.1 (L) 4.0 - 08/23/2018 [facility] 11.0 12:33 PM [facility] 10e9/L [facility] RBC Count 4.22 3.8 - 5.2 08/23/2018 [facility] 10e12/L 12:33 [facility] Hemoglobin 13.7 11.7 - 08/23/2018 [facility] 15.7 g/dL 12:33 PM [facility] Hematocrit 39.6 35.0 - 08/23/2018 [facility] 47.0 % 12:33 [facility] MCV 94 78 - 100 08/23/2018 [facility] fl 12:33 PM [facility] MCH 32.5 26.5 - 08/23/2018 [facility] 33.0 pg 12:33 [facility] MCHC 34.6 31.5 - 08/23/2018 [facility] 36.5 g/dL 12:33 [facility] RDW 12.3 10.0 - 08/23/2018 [facility] 15.0 % 12:33 [facility] Platelet Count 82 (L) 150 - 450 08/23/2018 [facility] 10e9/L 12:33 [facility] Diff Method Automated 08/23/2018 [facility] Method 12:33 [facility] % Neutrophils 53.1 % 08/23/2018 [facility] 12:33 [facility] % Lymphocytes 34.9 % 08/23/2018 [facility] 12:33 [facility] % Monocytes 10.1 % 08/23/2018 [facility] 12:33 PM [facility] % Eosinophils 1.3 % 08/23/2018 [place] 12:33 PM [facility] % Basophils 0.3 % 08/23/2018 [place] 12:33 PM [facility] % Immature 0.3 % 08/23/2018 [place] Granulocytes 12:33 [facility] Nucleated RBCs 0 0 /100 08/23/2018 [place] 12:33 PM [facility] Absolute 1.6 1.6 - 8.3 08/23/2018 [place] Neutrophil 10e9/L 12:33 PM [facility] Absolute 1.1 0.8 - 5.3 08/23/2018 [place] Lymphocytes 10e9/L 12:33 PM [facility] Absolute 0.3 0.0 - 1.3 08/23/2018 [place] Monocytes 10e9/L 12:33 PM [facility] Absolute 0.0 0.0 - 0.7 08/23/2018 [place] Eosinophils 10e9/L 12:33 [facility] Absolute 0.0 0.0 - 0.2 08/23/2018 [place] Basophils 10e9/L 12:33 PM [facility] Abs Immature 0.0 0 - 0.4 08/23/2018 [place] Granulocytes 10e9/L 12:33 [facility] Absolute 0.0 08/23/2018 [place] Nucleated RBC 12:33 PM [facility] Specimen Anatomical Collection Method Collection Time Receive d Time (Source) Location / / Volume Laterality Blood specimen 08/23/2018 12:22 9 (specimen) PM CDT 12:30 PM CDT Loan Moise PA-C LAB - BLOOD ORDERABLES Performing Organization Address City/State/ZIP Code Phon e Number [facility] [address] [place] [address] [facility] [address] [phone] documented in this encounter Visit Diagnoses Diagnosis [...] documented as of this encounter Care Teams End Lathe Operator Relationship Specialty Start Date End Date Clinic, [facility] PCP - General 01/20/18 06/28/[address] [place] [address] Tatyana Haas APRN RV SERVICE TECHNICIAN Assigned PCP 08/02/18 01/29/20 [facility] [address] [facility] [address] [place] [address] documented as of this encounter
--- OUTSIDE RECORDS SUMMARY | 2021-12-14 16:20 | XMS_ITS | Encounter Summary ---
:1980 Author Organization [place] Address [address] [facility] [place] [address] Care Team Providers Name Role Phone Clinic, [...] Date Recorded Female 01/14/2020 10:57 AM CONTRACT 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 ASSISTANT documented as of this encounter Plan of Treatment Upcoming Encounters Date Type Specialty Care Team Description 12/20/2021 Office Visit Wound Care Luis Camara, CALVIN [address] [place], [place] [address] (Wo rk) 01/21/2022 PRE VISIT Gastroenterology Landon Warren, *-*WANDAIN G RECORDS*-* MD Luis Fernando [address] [facility] [address] [place], [place] [address] (Wo rk) 01/21/2022 Office Visit Gastroenterology Juanis Levi [address] [place] [phone] Luis Fernando Miles MD [address] [facility] [address] [place] [address] documented as of this encounter Visit Diagnoses Not on filedocumented in this encounter Additional Health Concerns Assessment Noted Time PHQ-9 Depression Total Score: 10 07/08/2018 1:27 PM CD T documented as of this encounter Care Teams Plug Making Operator Relationship Specialty Start Date End Date Clinic, [facility] PCP - General 01/20/18 06/28/[address] [place] [address] documented as of this encounter
--- OUTSIDE RECORDS SUMMARY | 2021-12-14 16:20 | XMS_ITS | Encounter Summary ---
:1980 Author Organization [place] Address [address] [facility] [place] [address] Care Team Providers Name Role Phone Clinic, [facility] Primary Care Provide r Reason for Visit Reason Comments Constipation Derm Problem Encounter Details Date Type Department Care Team Description 07/28/2018 Office Visit [facility] Tatyana Haas, Rash and nonspecific skin eruption (Primary Dx); Clinic Evangeline PLANT AND MAINTENANCE TECHNICIAN PLANT PHYSIOLOGY TEACHER Drug-induced constipation; [address] [place] [facility] Alcohol abuse, continuous [address] [place], [place] [address] [place] [address] [address] [place] [facility] [phone] [place] [address] (Wo rk) Social History Tobacco Use Types Packs/Day Years Used Date Smoking Tobacco: Every Day Cigarettes 0.3 10 Smokeless Tobacco: Never Comments: 5-8 cigarettes a day Alcohol Use Standard Drinks/Week Comments Not Currently 0 (1 standard drink = 0.6 oz pure alcoho l) sober 16 days Sex Assigned at Date Recorded Female 01/14/2020 10:57 AM SEARCH ENGINE MARKETING SPECIALIST documented as of this encounter Last [...] Patient would like to continue coming to [facility] for her medical care moving forward. States that she does not currently have a PCP. Will forward chart to medical services assistant for review. Constipation Improvement with constipation with [...] Trino Luciano MD; Location: [facility] OR ??? TOBACCO SPRAYER SURGERY ??? ORTHOPEDIC SURGERY ??? THORACIC SURGERY [...] -Refills sent. Return for Follow up with [facility] and PCP as scheduled.. Tatyana Haas APRN CNP [facility] documented in this encounter Plan of Treatment Upcoming Encounters Date Type Specialty Care Team Description 12/20/2021 Office Visit Wound Care Luis Camara DPM [address] [place] [address] (Wo rk) 01/21/2022 PRE VISIT Gastroenterology Landon Warren, *-*WANDAIN G RECORDS*-* MD Luis Fernando [address] [facility] [address] [place] [address] (Wo rk) 01/21/2022 Office Visit Gastroenterology Juanis Levi [address] [place] [address] Luis Fernando Miles MD [address] [facility] [address] [place], [place] [phone] documented as of this encounter Visit Diagnoses Diagnosis Rash and nonspecific skin eruption - Pari trino Rash and other nonspecific skin eruption Drug-induced constipation Other constipation Alcohol abuse, continuous Nondependent alcohol abuse, continuous d rinking behavior documented in this encounter Additional Health Concerns Assessment Noted Time PHQ-9 Depression Total Score: 10 07/08/2018 1:27 PM CD T documented as of this encounter Care Teams Ethnoarchaeologist Relationship Specialty Start Date End Date Clinic, [facility] PCP - General 01/20/18 06/28/[address] [place] [address] documented as of this encounter
--- OUTSIDE RECORDS SUMMARY | 2021-12-14 16:20 | XMS_ITS | Encounter Summary ---
:1980 Author Organization [place] Address [address] [facility] [place] [address] Care Team Providers Name Role Phone Clinic, [...] at Date Recorded Female 01/14/2020 10:57 AM HEADLINER INSTALLER documented as of this encounter Plan of Treatment Upcoming Encounters Date Type Specialty Care Team Description 12/20/2021 Office Visit Wound Care Luis Camara, [place]VIN [address] [place], [place] [address] (Wo rk) 01/21/2022 PRE VISIT Gastroenterology Landon Warren, *-*WANDAIN G RECORDS*-* MD Luis Fernando [address] [facility] [address] [place], [place] [address] (Wo rk) 01/21/2022 Office Visit Gastroenterology Juanis Levi [address] [place] [phone] Luis Fernando Miles MD 516 [facility] [address] [place] [address] documented as of this encounter Visit Diagnoses Not on filedocumented in this encounter Additional Health Concerns Assessment Noted Time PHQ-9 Depression Total Score: 10 07/08/2018 1:27 PM CD T documented as of this encounter Care Teams Salesperson [employer] Relationship Specialty Start Date End Date Clinic, [facility] PCP - General 01/20/18 06/28/[address] [place] [address] documented as of this encounter
--- OUTSIDE RECORDS SUMMARY | 2021-12-14 16:20 | XMS_ITS | Encounter Summary ---
:1980 Author Organization [place] Address [address] [place] [address] Care Team Providers Name Role Phone Clinic, [...] at Date Recorded Female 01/14/2020 10:57 AM TURBINE ROOM ATTENDANT documented as of this encounter Plan of Treatment Upcoming Encounters Date Type Specialty Care Team Description 12/20/2021 Office Visit Wound Care Luis Camara, CALVIN [address] [place], [place] [address] (Wo rk) 01/21/2022 PRE VISIT Gastroenterology Landon Warren, *-*WANDAIN G RECORDS*-* MD Luis Fernando [address] [facility] [address] [place], [place] [address] (Wo rk) 01/21/2022 Office Visit Gastroenterology Juanis Levi [address] [place] [phone] Luis Fernando Miles MD 516 [facility] [address] [place] [address] documented as of this encounter Visit Diagnoses Not on filedocumented in this encounter Additional Health Concerns Assessment Noted Time PHQ-9 Depression Total Score: 10 07/08/2018 1:27 PM CD T documented as of this encounter Care Teams Side Piece Coverer Relationship Specialty Start Date End Date Clinic, [facility] PCP - General 01/20/18 06/28/[address] [place] [address] documented as of this encounter
--- OUTSIDE RECORDS SUMMARY | 2021-12-14 16:20 | XMS_ITS | Encounter Summary ---
:1980 Author Organization [place] Address [facility] [place] [address] Care Team Providers Name Role Phone Clinic, [facility] Primary Care Provide r Tatyana Haas Sanju SAGGER MAKER VOLLEYBALL REFEREE Unavailable [phone] Reason for Visit Reason Comments Alcohol Intoxication Encounter Details Date Type Department Care Team Description 12/18/2018 Emergency [facility] Odette Frank MD [facility] [address] [place] [address] Alcoholic intoxication [facility] [address] [place] [address] without complication Dept (H) [address] [place] [address] Social History Tobacco Use Types Packs/Day Years Used Date Smoking Tobacco: Every Day Cigarettes 0.3 10 Smokeless Tobacco: Never Comments: 5-8 cigarettes a day Alcohol Use Standard Drinks/Week Comments Not Currently 0 (1 standard drink = 0.6 oz pure alcoho l) sober 16 days Sex Assigned at Date Recorded Female 01/14/2020 10:57 AM CHAUFFEUR MOTORBUS documented as of this encounter Last Filed [...] be sent through Care Everywhere. Alcohol Intoxication (Turkmen)documented in this encounter Medications at Time [...] Depression Psychotic disorder Thyroid disease Cerebrovascular disease DC Asthma Social History: Presents alone. Current ever [...] Impression & Plan Medical Decision Making: Stephani iKng is a 38 year old female who [...] provider's statements to me. Otto Peterson 12/18/2018 [facility] EM[facility]GENCY [facility]PART[facility] Eliud Fernandez MD 12/21/18 [address] documented in this encounter Plan of Treatment Upcoming Encounters Date Type Specialty Care Team Description 12/20/2021 Office Visit Wound Care Talha Luis Burnett, DPM [address] [place], [place] [address] (Wo rk) 01/21/2022 PRE VISIT Gastroenterology Landon Warren, *-*WANDAIN G RECORDS*-* MD Luis Fernando [address] [address] (Wo rk) 01/21/2022 Office Visit Gastroenterology Juanis Levi [address] [place] [phone] Luis Fernando Miles MD [address] [id number] documented as of this encounter Procedures Procedure [...] Ethanol g/dL 0.35 (HH) <0.01 g/dL 12/18/2018 [place] 3:59 PM CDT [facility] Comment: Critical Value called to and read back Branden BOONE (ERA) ON 12.18.2018 AT 1556, SP Specimen Anatomical Collection Method Collection Time Receive d Time (Source) Location / / Volume Laterality Blood specimen 12/18/2018 2:48 PM 019 3:24 (specimen) CDT PM CDT Christopher Frank MD LAB - BLOOD ORDERABLES Performing Organization Address City/State/ZIP Code Phon e Rk M [facility] [address] [place], [place] [address] [facility] [address] [place], [place] [address] [facility] [phone] (ABNORMAL) Comprehensive metabolic panel (12/18/2018 2:48 PM CDT) athologist Signature Sodium 141 133 - 144 12/18/2018 [place] mmol/L 3:44 PM [facility] Potassium 3.5 3.4 - 5.3 12/18/2018 [place] mmol/L 3:44 PM [facility] Chloride 105 94 - 109 12/18/2018 [place] mmol/L 3:44 PM [facility] Carbon Dioxide 28 20 - 32 12/18/2018 [place] mmol/L 3:51 PM [facility] Anion Gap 8 3 - 14 12/18/2018 [place] mmol/L 3:51 PM [facility] Glucose 124 (H) 70 - 99 12/18/2018 [place] mg/dL 3:51 PM [facility] Urea Nitrogen 4 (L) 7 - 30 12/18/2018 [place] mg/dL 3:51 PM [facility] Creatinine 0.59 0.52 - 12/18/2018 [place] 1.04 mg/dL 3:51 PM [facility] GFR Estimate >90 >60 12/18/2018 [place] mL/min/{1. 3:51 PM [facility] 73_m2} [facility] Comment: Non GFR Calc Starting 02/03/2018, serum creatinine ba sed estimated GFR (eGFR) will be calculated using the Chronic Kidney Dise ase Epidemiology Collaboration (CKD-EPI) equation. GFR Estimate If >90 >60 mL/min/{1.73_m2} 12/18/2018 3: 51 PM [facility] Comment: GFR Calc Starting 02/03/2018, serum creatinine ba sed estimated GFR (eGFR) will be calculated using the Chronic Kidney Dise ase Epidemiology Collaboration (CKD-EPI) equation. Calcium 8.5 8.5 - 10.1 12/18/2018 3:51 PM [facility] mg/dL [facility] Bilirubin Total 0.7 0.2 - 1.3 mg/dL 12/18/2018 3:53 PM [facility] Albumin 3.9 3.4 - 5.0 g/dL 12/18/2018 3:53 PM [facility] Protein Total 8.3 6.8 - 8.8 g/dL 12/18/2018 3:53 PM [facility] Alkaline Phosphatase 151 (H) 40 - 150 U/L 12/18/2018 3:53 PM [facility] ALT 172 (H) 0 - 50 U/L 12/18/2018 3:53 PM [facility] AST 228 (H) 0 - 45 U/L 12/18/2018 3:53 PM [facility] Specimen Anatomical Collection Method Collection Time Receive d Time (Source) Location / / Volume Laterality Blood specimen 12/18/2018 2:48 PM 019 3:24 (specimen) CDT CDT Christopher Frank MD LAB - BLOOD ORDERABLES Performing Organization Address City/State/ZIP Code Phon e Number [place] [address] [place] [address] [facility] [address] [phone] (ABNORMAL) CBC with platelets differential (12/18/2018 2:48 PM CDT) [facility] Method Time Signature WBC 3.2 (L) 4.0 - 12/18/2018 [facility] 11.0 3:28 PM [facility] 10e9/L [facility] RBC Count 4.32 3.8 - 5.2 12/18/2018 [facility] 10e12/L 3:28 PM [facility] Hemoglobin 14.3 11.7 - 12/18/2018 [facility] 15.7 g/dL 3:28 PM [facility] Hematocrit 41.9 35.0 - 12/18/2018 [facility] 47.0 % 3:28 PM [facility] MCV 97 78 - 100 12/18/2018 [facility] fl 3:28 PM [facility] MCH 33.1 (H) 26.5 - 12/18/2018 [facility] 33.0 pg 3:28 PM [facility] MCHC 34.1 31.5 - 12/18/2018 [facility] 36.5 g/dL 3:28 PM [facility] RDW 13.2 10.0 - 12/18/2018 [facility] 15.0 % 3:28 PM [facility] Platelet Count 97 (L) 150 - 450 12/18/2018 [facility] 10e9/L 3:28 PM [facility] Diff Method Automated 12/18/2018 [facility] Method 3:28 PM [facility] % Neutrophils 36.5 % 12/18/2018 [facility] 3:28 PM [facility] % Lymphocytes 47.0 % 12/18/2018 [facility] 3:28 PM [facility] % Monocytes 10.5 % 12/18/2018 [facility] 3:28 PM [facility] % Eosinophils 3.8 % 12/18/2018 [facility] 3:28 PM [facility] % Basophils 1.6 % 12/18/2018 [facility] 3:28 PM [facility] % Immature 0.6 % 12/18/2018 [facility] Granulocytes 3:28 PM [facility] Nucleated RBCs 0 0 /100 12/18/2018 [facility] 3:28 PM [facility] Absolute 1.2 (L) 1.6 - 8.3 12/18/2018 [facility] Neutrophil 10e9/L 3:28 PM [facility] Absolute 1.5 0.8 - 5.3 12/18/2018 [facility] Lymphocytes 10e9/L 3:28 PM [facility] Absolute 0.3 0.0 - 1.3 12/18/2018 [facility] Monocytes 10e9/L 3:28 PM [facility] Absolute 0.1 0.0 - 0.7 12/18/2018 [facility] Eosinophils 10e9/L 3:28 PM [facility] Absolute 0.1 0.0 - 0.2 12/18/2018 [facility] Basophils 10e9/L 3:28 PM [facility] Abs Immature 0.0 0 - 0.4 12/18/2018 [facility] Granulocytes 10e9/L 3:28 PM CDT [facility] Absolute 0.0 12/18/2018 [place] Nucleated RBC 3:28 PM CDT [facility] Specimen Anatomical Collection Method Collection Time Receive d Time (Source) Location / / Volume Laterality Blood specimen 12/18/2018 2:48 PM 019 3:24 (specimen) CDT PM CDT Christopher Frank MD LAB - BLOOD ORDERABLES Performing Organization Address City/State/ZIP Code Phon e Number [place] [address] [address] [place], [place] [address] [facility] [address] [phone] documented in this encounter Visit Diagnoses Diagnosis [...] documented as of this encounter Care Teams Furniture Mover Helper Relationship Specialty Start Date End Date Clinic, [facility] PCP - General 01/20/18 06/28/21 [facility] [address] [place] [address] Tatyana Haas APRN VOLLEYBALL REFEREE Assigned PCP 08/02/18 01/29/20 [facility] [address] [facility] [facility] [address] [place] [address] documented as of this encounter
--- OUTSIDE RECORDS SUMMARY | 2021-12-14 16:20 | XMS_ITS | Encounter Summary ---
:1980 Author Organization [place] Address [address] [facility] [place] [address] Care Team Providers Name Role Phone Clinic, [facility] Primary Care Provide r Reason for Visit Reason Comments Constipation Encounter Details Date Type Department Care Team Description 07/24/2018 Office Visit [facility] Tatyana Haas, Drug- induced constipation (Primary Dx); Clinic [place] HAIR DESIGNER TEMPLE MARKER Rash and nonspecific skin eruption; [address] [place] DIGESTIVE Alcohol abuse, continuous [address] [place], [place] [address] [place] [address] [facility] [phone] [place] [address] (Wo rk) Social History Tobacco Use Types Packs/Day Years Used Date Smoking Tobacco: Every Day Cigarettes 0.3 10 Smokeless Tobacco: Never Comments: 5-8 cigarettes a day Alcohol Use Standard Drinks/Week Comments Not Currently 0 (1 standard drink = 0.6 oz pure alcoho l) sober 16 days Sex Assigned at Date Recorded Female 01/14/2020 10:57 AM ELECTRICAL SYSTEMS ENGINEER documented as of this encounter Last [...] following health issues: Patient is coming from [facility] where she is in treatment for alcohol dependence and presenting to clinic for constipation and Rash. Patient reports that she will be at till next Friday. [place] Patient reports that she is smoking about [...] So Luciano MD; Location: [facility] OR ??? FRONT END LOADER OPERATOR SURGERY ??? ORTHOPEDIC SURGERY ??? THORACIC [...] and Alcohol Dependence. Tatyana Haas APRN CNP [facility] documented in this encounter Plan of Treatment Upcoming Encounters Date Type Specialty Care Team Description 12/20/2021 Office Visit Wound Care Luis Camara, [place] [address] [place] [address] (Wo rk) 01/21/2022 PRE VISIT Gastroenterology Landon Warren, *-*HEATHER G RECORDS*-* MD Luis Fernando [address] [place] [id number] (Wo rk) 01/21/2022 Office Visit Gastroenterology Juanis Levi [address] [place] [phone] Luis Fernando Miles MD [address] [place] [address] documented as of this encounter Visit Diagnoses Diagnosis Drug-induced constipation - Primary Other constipation Rash and nonspecific skin eruption Rash and other nonspecific skin eruption Alcohol abuse, continuous Nondependent alcohol abuse, continuous d rinking behavior documented in this encounter Additional Health Concerns Assessment Noted Time PHQ-9 Depression Total Score: 10 07/08/2018 1:27 PM CD T documented as of this encounter Care Teams Business Process Analyst Relationship Specialty Start Date End Date Clinic, [facility] PCP - General 01/20/18 06/28/[address] [place] [address] documented as of this encounter
--- OUTSIDE RECORDS SUMMARY | 2021-12-14 16:20 | XMS_ITS | Encounter Summary ---
:1980 Author Organization [place] Address [address] [facility] [place] [address] Care Team Providers Name Role Phone Clinic, [facility] Primary Care Provide r Encounter [...] Date Recorded Female 01/14/2020 10:57 AM PROGRAM AIDE GROUP WORK documented as of this encounter Plan of Treatment Upcoming Encounters Date Type Specialty Care Team Description 12/20/2021 Office Visit Wound Care Luis Camara, [place] [address] [place], [place] [phone] (Wo rk) 01/21/2022 PRE VISIT Gastroenterology Landon Warren, *-*WANDAIN G RECORDS*-* MD Luis Fernando [address] [facility] [address] [place], [place] [address] (Wo rk) 01/21/2022 Office Visit Gastroenterology Juanis Levi [address] [place] [phone] Luis Fernando Miles MD [address] [facility] [address] [place] [address] documented as of this encounter Visit Diagnoses Not on filedocumented in this encounter Additional Health Concerns Assessment Noted Time PHQ-9 Depression Total Score: 10 07/08/2018 1:27 PM CD T documented as of this encounter Care Teams First Grade Teacher Relationship Specialty Start Date End Date Clinic, [facility] PCP - General 01/20/18 06/28/[address] [place] [address] documented as of this encounter
--- OUTSIDE RECORDS SUMMARY | 2021-12-14 16:20 | XMS_ITS | Encounter Summary ---
:1980 Author Organization [place] Address [address] [facility] [place] [address] Care Team Providers Name Role Phone Clinic, [facility] Primary Care Provide r Tatyana Haas Sanju ASSEMBLING MACHINE OPERATOR TOW MOTOR OPERATOR Unavailable [phone] Encounter Details Date Type Department Care [...] at Date Recorded Female 01/14/2020 10:57 AM ENGINEER BOOSTER AND EXHAUSTER documented as of this encounter Plan of Treatment Upcoming Encounters Date Type Specialty Care Team Description 12/20/2021 Office Visit Wound Care Luis Camara DPM [address] [place] [address] (Wo rk) 01/21/2022 PRE VISIT Gastroenterology Landon Warren, *-*HEATHER Barriga RECORDS*-* MD Luis Fernando [address] [facility] [address] [place] [address] (Wo rk) 01/21/2022 Office Visit Gastroenterology Juanis Levi [address] [place] [address] Luis Fernando Miles MD [address] [facility] [address] [place], [place] [address] documented as of this encounter Visit Diagnoses Not on filedocumented in this encounter Additional Health Concerns Assessment Noted Time PHQ-9 Depression Total Score: 10 07/08/2018 1:27 PM CD T documented as of this encounter Care Teams Security System Engineer Relationship Specialty Start Date End Date Clinic, [facility] PCP - General 01/20/18 06/28/[address] [place] [address] Tatyana Haas APRN TOW MOTOR OPERATOR Assigned PCP 08/02/18 01/29/20 [facility] [address] [facility] [address] [place], [place] [address] documented as of this encounter
--- OUTSIDE RECORDS SUMMARY | 2021-12-14 16:20 | XMS_ITS | Encounter Summary ---
:1980 Author Organization [place] Address [facility] [place] [address] Care Team Providers Name Role Phone Clinic, Ltac, Located Within [facility] Primary Care Provide r Tatyana Haas Sanju SUBSTATION TECHNICIAN ORDER MANAGER Unavailable [phone] Reason for Visit Reason Comments Chest Pain Encounter Details Date Type Department Care Team Description 08/23/2018 Emergency [facility] Sandra Moreno intoxication without complication (H); [facility] Emergency Dep t MD Kim Chest pain, unspecified type; [address] [facility] [place] [address] [phone] (Wo rk) Social History Tobacco Use Types Packs/Day Years Used Date Smoking Tobacco: Every Day Cigarettes 0.3 10 Smokeless Tobacco: Never Comments: 5-8 cigarettes a day Alcohol Use Standard Drinks/Week Comments Not Currently 0 (1 standard drink = 0.6 oz pure alcoho l) sober 16 days Sex Assigned at Date Recorded Female 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 Alcohol Intoxication (Norwegian)Hypokalemia (Norwegian)Chest Pain, Uncertain Cause (Norwegian)documented in this encounter Medications at Time of [...] History: Breast surgery - abscess drained x2 Dining Service Supervisor surgery Orthopedic surgery Thoracic surgery Family History: Mother - depression, psychotic disorder, thyroid disease Father - cerebrovascular disease, MS Brother - depression Social History: The patient [...] nerves intact. Motor- moves all 4 extremities, bee raiser 5/5. DF and PF 5/5. Sensation- intact arms and face and legs. Coordination- ambulatory. Overall symmetrical exam HEME: no bruising or petechiae/contusions LYMPH: no lymphadenopathy Emergency Department Course ECG: ECG taken at 0136, ECG read at [address] Sandra Moreno MD Normal sinus rhythm Prolonged QT Abnormal ECG Rate 92 bpm. MD interval 160. QRS duration 102. QT/QTc 390/482. [...] while in the emergency department, results above. (2244) I performed an exam of the patient [...] PCP. (0450) Patient's mother has arrived to black pickler patient. (0452) Rechecked patient. (0504) Spoke with [...] 08/23/2018 to document services personally performed by Sadnra Moreno MD, based on my observations and the provider's statements to me. 08/23/2018 [facility] EMERGENCY DEPARTMENT Sandra Moreno MD 08/23/18 2675 documented in this encounter Plan of Treatment Upcoming Encounters Date Type Specialty Care Team Description 12/20/2021 Office Visit Wound Care Luis Camara, [place] [address] [place], [place] [phone] (Wo rk) 01/21/2022 PRE VISIT Gastroenterology Landon Warren, *-*INCOMIN G RECORDS*-* MD Luis Fernando [address] [place] [phone] (Wo jesse) 01/21/2022 Office Visit Gastroenterology Juanis Levi [address] [place] [phone] Luis Fernando Miles MD [address] [place] [address] documented as of this encounter Procedures Procedure [...] UA with Microscopic (08/23/2018 2:55 AM CDT) [facility] Method Time Signature Color Urine Yellow 08/23/2018 [facility] 3:04 AM CDT [facility] Appearance Urine Clear 08/23/2018 [facility] 3:04 AM CDT [facility] Glucose Urine Negative NEG^Negat 08/23/2018 [facility] paula mg/dL 3:04 AM [facility] Bilirubin Urine Negative NEG^Negat 08/23/2018 [facility] paula 3:04 AM [facility] Ketones Urine Negative NEG^Negat 08/23/2018 [place] paula mg/dL 3:04 AM [facility] Specific [place] 1.020 1.003 - 08/23/2018 [place] Urine 1.035 3:04 AM [facility] Blood Urine Negative NEG^Negat 08/23/2018 [facility] paula 3:04 AM [facility] pH Urine 6.5 5.0 - 7.0 08/23/2018 [place] pH 3:04 AM [facility] Protein Albumin 20 (A) NEG^Negat 08/23/2018 [place] Urine paula mg/dL 3:04 AM [facility] Urobilinogen >12.0 (H) 0.0 - 2.0 08/23/2018 [place] mg/dL mg/dL 3:04 AM [facility] Nitrite Urine Negative NEG^Negat 08/23/2018 [facility] paula 3:04 AM [facility] Leukocyte Negative NEG^Negat 08/23/2018 [place] Esterase Urine paula 3:04 AM [facility] Source Midstream 08/23/2018 [place] Urine 2:55 AM [facility] WBC Urine <1 0 - 5 08/23/2018 [facility] /HPF 3:04 AM [facility] RBC Urine <1 0 - 2 08/23/2018 [facility] /HPF 3:04 AM [facility] Squamous 1 0 - 1 08/23/2018 [facility] Epithelial /HPF /HPF 3:04 AM [facility] Mucous Urine Present (A) NEG^Negat 08/23/2018 [place] paula /LPF 3:04 AM [facility] Hyaline Casts 1 0 - 2 08/23/2018 [facility] /LPF 3:04 AM [facility] Specimen (Source) Anatomical Collection Method Collection Time Re ceived Time Location / / Volume Laterality Examination of URINE SPECIMEN 08/23/2018 2:55 08/24/19 19 3:00 midstream urine OBTAINED BY CLEAN AM [facility] specimen CATCH PROCEDURE / (procedure) Unknown Sandra Moreno MD LAB - URINE ORDERABLES Performing Organization Address City/[facility]/ZIP Code Phon e Number M [facility] [address], [place] [address] [facility] [address] [place], [place] [address], [facility] [phone] (ABNORMAL) Alcohol ethyl (08/23/2018 1:44 AM CDT) P athologist Signature Ethanol g/dL 0.19 (H) <0.01 g/dL 08/23/2018 [place] 2:52 AM CDT [facility] Specimen Anatomical Collection Method Collection Time Receive d Time (Source) Location / / Volume Laterality 08/23/2018 1:44 AM 9 1:49 CDT AM CDT Sandra Moreno MD LAB - BLOOD ORDERABLES Performing Organization Address [facility]/ZIP [facility] Phon e Number M [facility] [address] [place] [address] [facility] [address] [place] [address], U [phone] HCG QUALitative (blood) (08/23/2018 1:44 AM CDT) [facility] Method Time Signature HCG Qualitative Negative NEG^Negati 08/23/2018 [place] Serum ve 2:10 AM CDT [facility] Comment: This test is for screening purposes. ??R esults should be interpreted along with the clinical picture. ??Confirmation te sting is available if warranted by ordering [id number], HCG Quantitative Pregna ncy. Specimen Anatomical Collection Method Collection Time Receive d Time (Source) Location / / Volume Laterality Blood specimen 08/23/2018 1:44 AM 019 1:49 (specimen) CDT AM CDT Sandra Moreno MD LAB - BLOOD ORDERABLES Performing Organization Address City/[facility]/ZIP Code Phon e Number M [facility] [address] [place], [place] [address] [facility] [address] [place], [place] [address] [facility] [phone] Troponin I (08/23/2018 1:44 AM CDT) [facility] Troponin I ES <0.015 0.000 - 08/23/2018 [facility] 0.045 ug/L 2:13 AM [facility] Comment: The 99th percentile for upper [...] Address City/State/ZIP Code Phon e Number M [place] [address] [address] [facility] [address] [address] [place] [address] (ABNORMAL) Basic metabolic panel (08/23/2018 1:44 AM CDT) [facility] Sodium 141 133 - 144 08/23/2018 [place] mmol/L 2:04 AM [facility] Potassium 2.7 (L) 3.4 - 5.3 08/23/2018 [facility] mmol/L 2:04 AM [facility] Chloride 105 94 - 109 08/23/2018 [facility] mmol/L 2:04 AM [facility] Carbon Dioxide 26 20 - 32 08/23/2018 [facility] mmol/L 2:08 AM [facility] Anion Gap 10 3 - 14 08/23/2018 [facility] mmol/L 2:08 AM [facility] Glucose 99 70 - 99 08/23/2018 [facility] mg/dL 2:08 AM [facility] Urea Nitrogen 6 (L) 7 - 30 08/23/2018 [facility] mg/dL 2:08 AM [facility] Creatinine 0.55 0.52 - 08/23/2018 [facility] 1.04 mg/dL 2:08 AM [facility] GFR Estimate >90 >60 08/23/2018 [place] mL/min/{1. 2:08 AM [facility] 73_m2} HOSPITAL Comment: Non GFR Calc Starting 02/03/2018, serum creatinine ba sed estimated GFR (eGFR) will be calculated using the Chronic Kidney Dise [facility] Epidemiology Collaboration (CKD-EPI) equation. GFR Estimate If >90 >60 mL/min/{1.73_m2} 08/23/2018 2: 08 AM [facility] Comment: GFR Calc Starting 02/03/2018, serum creatinine ba sed estimated GFR (eGFR) will be calculated using the Chronic Kidney Dise [facility] Epidemiology Collaboration (CKD-EPI) equation. Calcium 8.5 8.5 - 10.1 mg/dL 08/23/2018 2:[address] [facility] Specimen Anatomical Collection Method Collection Time Receive d Time (Source) Location / / Volume Laterality Blood specimen 08/23/2018 1:44 AM 019 1:49 (specimen) CDT [facility] Sandra Moreno MD LAB - BLOOD ORDERABLES Performing Organization Address City/State/ZIP Code Phon e Number M [address] [address] [facility] [address] [place] [address] [facility] [phone] [address], [facility] (ABNORMAL) CBC with platelets differential (08/23/2018 1:44 AM CDT) [facility] Method Time Signature WBC 3.9 (L) 4.0 - 08/23/2018 [place] 11.0 1:52 AM [facility] 10e9/L [facility] RBC Count 3.96 3.8 - 5.2 08/23/2018 [place] 10e12/L 1:52 AM [facility] Hemoglobin 12.8 11.7 - 08/23/2018 [place] 15.7 g/dL 1:52 AM [facility] Hematocrit 37.3 35.0 - 08/23/2018 [place] 47.0 % 1:52 AM [facility] MCV 94 78 - 100 08/23/2018 [facility] fl 1:52 AM [facility] MCH 32.3 26.5 - 08/23/2018 [facility] 33.0 pg 1:52 AM [facility] MCHC 34.3 31.5 - 08/23/2018 [facility] 36.5 g/dL 1:52 AM [facility] RDW 12.3 10.0 - 08/23/2018 [facility] 15.0 % 1:52 AM [facility] Platelet Count 84 (L) 150 - 450 08/23/2018 [facility] 10e9/L 1:52 AM [facility] Diff Method Automated 08/23/2018 [facility] Method 1:52 AM [facility] % Neutrophils 29.6 % 08/23/2018 [facility] 1:52 AM [facility] % Lymphocytes 59.7 % 08/23/2018 [facility] 1:52 AM [facility] % Monocytes 8.2 % 08/23/2018 [facility] 1:52 AM [facility] % Eosinophils 2.0 % 08/23/2018 [facility] 1:52 AM [facility] % Basophils 0.5 % 08/23/2018 [facility] 1:52 AM [facility] % Immature 0.0 % 08/23/2018 [facility] Granulocytes 1:52 AM [facility] Nucleated RBCs 0 0 /100 08/23/2018 [facility] 1:52 AM [facility] Absolute 1.2 (L) 1.6 - 8.3 08/23/2018 [facility] Neutrophil 10e9/L 1:52 AM [facility] Absolute 2.3 0.8 - 5.3 08/23/2018 [facility] Lymphocytes 10e9/L 1:52 AM [facility] Absolute 0.3 0.0 - 1.3 08/23/2018 [facility] Monocytes 10e9/L 1:52 AM [facility] Absolute 0.1 0.0 - 0.7 08/23/2018 [facility] Eosinophils 10e9/L 1:52 AM [facility] Absolute 0.0 0.0 - 0.2 08/23/2018 [facility] Basophils 10e9/L 1:52 AM [facility] Abs Immature 0.0 0 - 0.4 08/23/2018 [place] Granulocytes 10e9/L 1:52 AM CDT [facility] Absolute 0.0 08/23/2018 [place] Nucleated RBC 1:52 AM [facility] Specimen Anatomical Collection Method Collection Time Receive d Time (Source) Location / / Volume Laterality Blood specimen 08/23/2018 1:44 AM 019 1:49 (specimen) CDT AM CDT Sandra Moreno MD LAB - BLOOD ORDERABLES Performing Organization Address City/State/ZIP [facility] Phon e Number [place] [address] [address] [address] [facility] [address] [phone] EKG 12 lead (08/23/2018 1:36 AM CDT) [facility] gist Method Time Signature Interpretation ECG Click View RADIOLOGY Image link RESULTS to view waveform and result Specimen (Source) Anatomical Collection Method Collection Time Re ceived Time Location / / Volume Laterality 08/23/2018 1:36 AM CDT Sandra Moreno MD ECG ORDERABLES Performing Organization Address City/[facility] Phon e Number RADIOLOGY RESULTS documented in [...] Ga [id number] (Stopped - Provider: Helena Ray, GENARO) Intravenous, 1,000 mL, ONCE, at 1,000 [...] documented as of this encounter Care Teams Resource Specialist Teacher Relationship Specialty Start Date End Date Clinic, Ltac, Located Within [facility] PCP - General 01/20/18 06/28/[address] [place] [address] Tatyana Haas APRN ORDER MANAGER Assigned PCP 08/02/18 01/29/20 [facility] [address] [facility] [address] [place] [address] documented as of this encounter
--- OUTSIDE RECORDS SUMMARY | 2021-12-14 16:20 | XMS_ITS | Encounter Summary ---
:1980 Author Organization [place] Address [address] [place] [address]. [place] [address] Care Team Providers Name Role Phone Clinic, [facility] Primary Care Provide r Reason for Referral Consultation (Routine) - Closed Specialty Diagnoses / Procedures Referred By Contact Refer red To Contact Diagnoses Joint effusion of the lower leg Marleny De Jesus MD [address] and [place], [place] [address] [address] [facility] Keith Camryn Sanju [address] Phone: Fax: Referral ID Status Reason Start Date Expiration Date Visits Requ ested Visits Authorized [id number] Closed 07/20/2018 07/20/2019 1 1 Reason for Visit Reason Comments Knee Pain Complains of left knee and l eg pain. States it started hurting 5 days ago. Was seen in ED and was given tordal and xray was done. Pt states they told her it was probably tendonit is. Encounter Details Date Type Department Care Team Description 07/20/2018 [facility] Jeannine De Jesus ra, MD Joint effusion of the Emergency Department [address] [place] [address] lower leg (Primary Dx) [address] [place] [address] [phone] (Wo rk) Social History Tobacco Use Types Packs/Day Years Used Date Smoking Tobacco: Every Day Cigarettes 0.3 10 Smokeless Tobacco: Never Comments: 5-8 cigarettes a day Alcohol Use Standard Drinks/Week Comments Not Currently 0 (1 standard drink = 0.6 oz pure alcoho l) sober 16 days Sex Assigned at Date Recorded Female 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 If you have to wear a xqjy-sds-fdgf knee brace, you can open it to apply the ice pack, or heat, directly to the knee. Never put ice directly on the skin. Always wrap the ice in a towel or other type of cloth. ?? You may use??yqoe-abu-mtsvqup pain medicine to control pain, unless another [...] work duties. ?? If you have a fnpm-nmf-nbke knee brace, you can remove it to [...] Shaking chills Date Last Reviewed: 06/17/2017 ?? [phone] The [employer]. [address] [place] [address], [place] [address]. All rights reserved. This information is not [...] cannot be sent through Care Everywhere.Knee Effusion (Slovak)documented in this encounter Medications at Time of [...] treadmill and eliptical. She is currently in [employer]. She was seen and given toradol [...] and Surgical History, and Social History inthe [employer] system. Review of Systems Musculoskeletal: Positive for [...] Joint effusion of the lower leg 07/20/2018 [facility], EMERGENCY DEPARTMENT Marleny De Jesus MD 07/20/18 1542 documented in this encounter Plan of Treatment Upcoming Encounters Date Type Specialty Care Team Description 12/20/2021 Office Visit Wound Care Luis Camara DPM [address] [place], [place] [phone] (Wo rk) 01/21/2022 PRE VISIT Gastroenterology Landon Warren, *-*WANDAIN G RECORDS*-* MD Luis Fernando [address] [place] [address] (Wo rk) 01/21/2022 Office Visit Gastroenterology Juanis Levi [address] [place] [phone] Luis Fernando Miles MD [address] [place] [phone] Scheduled Referrals Name Type Priority Associated Diagnoses Order S [facility] SPORTS MEDICINE Referral Routine Joint effusion of [...] documented as of this encounter Care Teams Bakery Clerk Relationship Specialty Start Date End Date Clinic, [facility] PCP - General 01/20/18 06/28/[address] [place] [address] documented as of this encounter
--- OUTSIDE RECORDS SUMMARY | 2021-12-14 16:20 | XMS_ITS | Encounter Summary ---
:1980 Author Organization [place] Address [address] 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 documented as of this encounter Plan of Treatment Upcoming Encounters Date Type Specialty Care Team Description 12/20/2021 Office Visit Wound Care Luis Camara DPM [address] [place] [address] (Wo rk) 01/21/2022 PRE VISIT Gastroenterology Landon Warren, *-*HEATHER Barriga RECORDS*-* MD Luis Fernando [address] [facility] [place], [place] [address] (Wo rk) 01/21/2022 Office Visit Gastroenterology Juanis Levi [address] [place] [address] Luis Fernando Miles MD [address] [facility] [address] [place], [place] [address] documented as of this encounter Visit Diagnoses Not on filedocumented in this encounter Additional Health Concerns Assessment Noted Time PHQ-9 Depression Total Score: 10 07/08/2018 1:27 PM CD T documented as of this encounter Care Teams Material Clerk Relationship Specialty Start Date End Date Clinic, [facility] PCP - General 01/20/18 06/28/[address] [place] [address] Tatyana Haas APRN COMMERCIAL DRIVER'S LICENSE DRIVER Assigned PCP 08/02/18 01/29/20 [facility] [address] [facility] [address] [place], [place] [address] documented as of this encounter
--- OUTSIDE RECORDS SUMMARY | 2021-12-14 16:20 | XMS_ITS | Encounter Summary ---
:1980 Author Organization [place] Address [address] [place] [address]. 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 for alcohol abuse. She reports she's had pain in her left knee for the past 4 days, around the same time she began working out at the [employer] gym. Patient denies any specific injury toher [...] So Luciano MD; Location: [facility] OR ??? HEEL COVERER SURGERY ??? ORTHOPEDIC SURGERY ??? THORACIC SURGERY [...] chronicity IEl, am serving as a trained biomedical engineering supervisor to document services personally performed by Donnell Shook MD, based on the provider's statements to me. IDonnell MD, was physically present and have reviewed and verified the accuracy of this note documented by [place]. 07/19/2018 [facility], EMERGENCY DEPARTMENT Jona Shook MD 07/19/18 1147 documented in this encounter Plan of Treatment Upcoming Encounters Date Type Specialty Care Team Description 12/20/2021 Office Visit Wound Care Luis Camara, [place] [address] [place] [address] (Wo rk) 01/21/2022 PRE VISIT Gastroenterology Landon Warren, *-*WANDAIN G RECORDS*-* MD Luis Fernando [address] [place] [address] (Wo rk) 01/21/2022 Office Visit Gastroenterology Juanis Levi [address] [place] [phone] Luis Fernando Miles MD [address] [place] [address] documented as of this encounter Procedures Procedure [...] documented as of this encounter Care Teams Bail Agent Relationship Specialty Start Date End Date Clinic, [facility] PCP - General 01/20/18 06/28/21 [address] [place] [address] documented as of this encounter
--- OUTSIDE RECORDS SUMMARY | 2021-12-14 16:21 | XMS_ITS | Encounter Summary ---
:1980 Author Organization [place] Address [address] [facility] 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 documented as of this encounter Plan of Treatment Upcoming Encounters Date Type Specialty Care Team Description 12/20/2021 Office Visit Wound Care Luis Camara, [place] [address] [place], [place] [phone] (Wo rk) 01/21/2022 PRE VISIT Gastroenterology Landon Warren, *-*INCOMIN G RECORDS*-* MD Luis Fernando [address] [facility] [address] [place], [place] [address] (Wo rk) 01/21/2022 Office Visit Gastroenterology Juanis Levi [address] [place] [phone] Luis Fernando Miles MD [address] [facility] [place] [address] documented as of this encounter Visit Diagnoses Not on filedocumented in this encounter Care Teams Sharepoint Application Developer Relationship Specialty Start Date End Date Clinic, [facility] PCP - General 01/20/18 06/28/[address] [place] [address] documented as of this encounter
--- OUTSIDE RECORDS SUMMARY | 2021-12-14 16:21 | XMS_ITS | Encounter Summary ---
:1980 Author Organization [place] Address [facility] [place] [address] Care Team Providers Name Role Phone Clinic, [facility] Primary Care Provide r Reason for Visit Reason Comments Alcohol Problem Encounter Details Date Type Department Care Team Description 05/04/2018 Emergency [facility] Christopher Carrion Al coholic intoxication without complication (H); [facility] [address] [place], [place] [address] [phone] [place] [address] [place] [address] (Wo rk) Social History Tobacco Use Types Packs/Day Years Used Date Smoking Tobacco: Every Day Cigarettes 0.1 10 Smokeless Tobacco: Never Comments: 5 cigarettes a day Alcohol Use Standard Drinks/Week Comments Yes 0 (1 standard drink = 0.6 oz pure alcoho l) binge drinks Sex Assigned at Date Recorded Female 01/14/2020 10:57 AM 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 VS [...] agreeable towards. Patient will be transferred to [facility] for further treatment of her [...] provider's statements to me. Leydi Dye 05/04/2018 [facility] EMERGENCY DEPARTMENT Christopher Carrion MD 05/05/18 0019 documented in this encounter Plan of Treatment Upcoming Encounters Date Type Specialty Care Team Description 12/20/2021 Office Visit Wound Care Luis Camara DPM [address] [place], [place] [address] (Reinaldo molina) 01/21/2022 PRE VISIT Gastroenterology Landon Warren, *-*HEATHER Barriga RECORDS*-* MD Luis Fernando [address] [facility] [address] [place], [place] [address] (Reinaldo molina) 01/21/2022 Office Visit Gastroenterology AmitaJuanis karimi [address] [place] [phone] Luis Fernando Miles MD [address] [facility] [address] [place] [address] documented as of this encounter Procedures Procedure [...] Signature Magnesium 2.0 1.6 - 2.3 05/04/2018 [facility][NOTE 3] mg/dL 9:02 PM T [facility] Specimen Anatomical Collection Method Collection Time Receive d Time (Source) Location / / Volume Laterality Blood specimen 05/04/2018 8:30 PM 019 8:42 (specimen) CDT PM CDT Christopher Carrion MD LAB - BLOOD ORDERABLES Performing Organization Address City/State/ZIP Code Phon e Number [facility] [address] [address] [facility] [address] [address] [facility] [phone] (ABNORMAL) Comprehensive metabolic panel (05/04/2018 8:30 PM CDT) athologist Signature Sodium 139 133 - 144 05/04/2018 [place] mmol/L 8:54 PM CDT [facility] Potassium 3.2 (L) 3.4 - 5.3 05/04/2018 [place] mmol/L 8:54 PM [facility] Chloride 103 94 - 109 05/04/2018 [place] mmol/L 8:54 PM [facility] Carbon Dioxide 28 20 - 32 05/04/2018 [facility] mmol/L 9:01 PM [facility] Anion Gap 8 3 - 14 05/04/2018 [place] mmol/L 9:01 PM [facility] Glucose 102 (H) 70 - 99 05/04/2018 [place] mg/dL 9:01 PM [facility] Urea Nitrogen 5 (L) 7 - 30 05/04/2018 [place] mg/dL 9:01 PM [facility] Creatinine 0.68 0.52 - 05/04/2018 [place] 1.04 mg/dL 9:01 PM [facility] GFR Estimate >90 >60 05/04/2018 [place] mL/min/{1. 9:01 PM [facility] 73_m2} [facility]OSPITAL Comment: Non GFR Calc Starting 02/03/2018, serum creatinine ba sed estimated GFR (eGFR) will be calculated using the Chronic Kidney Dise [facility] Epidemiology Collaboration (CKD-EPI) equation. GFR Estimate If >90 >60 mL/min/{1.73_m2} 05/04/2018 9: 01 PM [facility] Comment: GFR Calc Starting 02/03/2018, serum creatinine ba sed estimated GFR (eGFR) will be calculated using the Chronic Kidney Dise [facility] Epidemiology Collaboration (CKD-EPI) equation. Calcium 8.5 8.5 - 10.1 05/04/2018 9:01 PM [facility] [facility] mg/dL [facility] Bilirubin Total 1.2 0.2 - 1.3 mg/dL 05/04/2018 9:02 PM [facility] Albumin 4.1 3.4 - 5.0 g/dL 05/04/2018 9:02 PM [facility] Protein Total 8.6 6.8 - 8.8 g/dL 05/04/2018 9:02 PM [facility] Alkaline Phosphatase 157 (H) 40 - 150 U/L 05/04/2018 9:02 PM [facility] ALT 173 (H) 0 - 50 U/L 05/04/2018 9:02 PM [facility] AST 250 (H) 0 - 45 U/L 05/04/2018 9:02 PM [facility] Specimen Anatomical Collection Method Collection Time Receive d Time (Source) Location / / Volume Laterality Blood specimen 05/04/2018 8:30 PM 019 8:42 (specimen) CDT PM CDT Christopher Carrion MD LAB - BLOOD ORDERABLES Performing Organization Address City/State/ZIP Code Phon e Number [facility] [address] [place], [place] [address] [facility] [address] [phone] (ABNORMAL) CBC with platelets differential (05/04/2018 8:30 PM CDT) [facility] gist Method Time Signature WBC 4.2 4.0 - 05/04/2018 [facility] 11.0 8:45 PM [facility] 10e9/L [facility] RBC Count 4.55 3.8 - 5.2 05/04/2018 [facility] 10e12/L 8:45 PM [facility] Hemoglobin 14.8 11.7 - 05/04/2018 [facility] 15.7 g/dL 8:45 PM [facility] Hematocrit 43.9 35.0 - 05/04/2018 [facility] 47.0 % 8:45 PM [facility] MCV 97 78 - 100 05/04/2018 [facility] fl 8:45 PM [facility] MCH 32.5 26.5 - 05/04/2018 [facility] 33.0 pg 8:45 PM [facility] MCHC 33.7 31.5 - 05/04/2018 [facility] 36.5 g/dL 8:45 PM [facility] RDW 13.3 10.0 - 05/04/2018 [facility] 15.0 % 8:45 PM [facility] Platelet Count 144 (L) 150 - 450 05/04/2018 [facility] 10e9/L 8:45 PM [facility] Diff Method Automated 05/04/2018 [facility] Method 8:45 PM CDT [facility] % Neutrophils 49.5 % 05/04/2018 [facility] 8:45 PM [facility] % Lymphocytes 39.2 % 05/04/2018 [facility] 8:45 PM [facility] % Monocytes 8.4 % 05/04/2018 [facility] 8:45 PM [facility] % Eosinophils 2.2 % 05/04/2018 [facility] 8:45 PM [facility] % Basophils 0.7 % 05/04/2018 [facility] 8:45 PM [facility] % Immature 0.0 % 05/04/2018 [facility] Granulocytes 8:45 PM [facility] Nucleated RBCs 0 0 /100 05/04/2018 [facility] 8:45 PM [facility] Absolute 2.1 1.6 - 8.3 05/04/2018 [facility] Neutrophil 10e9/L 8:45 PM [facility] Absolute 1.6 0.8 - 5.3 05/04/2018 [facility] Lymphocytes 10e9/L 8:45 PM [facility] Absolute 0.4 0.0 - 1.3 05/04/2018 [facility] Monocytes 10e9/L 8:45 PM [facility] Absolute 0.1 0.0 - 0.7 05/04/2018 [facility] Eosinophils 10e9/L 8:45 PM [facility] Absolute 0.0 0.0 - 0.2 05/04/2018 [facility] Basophils 10e9/L 8:45 PM [facility] Abs Immature 0.0 0 - 0.4 05/04/2018 [facility] Granulocytes 10e9/L 8:45 PM [facility] Absolute 0.0 05/04/2018 [facility] Nucleated RBC 8:45 PM [facility] Specimen Anatomical Collection Method Collection Time Receive d Time (Source) Location / / Volume Laterality Blood specimen 05/04/2018 8:30 PM 019 8:42 (specimen) CDT [facility] Christopher Carrion MD LAB - BLOOD ORDERABLES Performing Organization Address City/State/ZIP Code Phon e Number [facility] [address] [place], [place] [address] [facility] [address] [phone] (ABNORMAL) Alcohol ethyl (05/04/2018 8:30 PM CDT) athologist Signature Ethanol g/dL 0.21 (H) <0.01 g/dL 05/04/2018 [facility] 9:02 PM CDT [facility] Specimen Anatomical Collection Method Collection Time Receive d Time (Source) Location / / Volume Laterality Blood specimen 05/04/2018 8:30 PM 019 8:42 (specimen) CDT PM CDT Christopher Carrion MD LAB - BLOOD ORDERABLES Performing Organization Address City/[facility]/ZIP [facility] Phon e Number [facility] [address] [place], [place] [address] [facility] [address] [place], [place] [address] [place] [address] ISTAT HCG Quantitative POCT (05/04/2018 8:28 PM CDT) athologist Signature HCG Quantitative <5.0 <5.0 IU/L 05/04/2018 [facility] Serum 8:40 PM CDT TEST, HANDHELD METER Specimen Anatomical Collection Method Collection Time Receive d Time (Source) Location / / Volume Laterality 05/04/2018 8:28 PM 9 8:40 CDT PM CDT Christopher Carrion MD LAB - BEAKER POCT Performing Organization Address City/[facility]/ZIP Code Phon e Number [facility] POINT OF [...] 0117 documented in this encounter Care Teams Business Strategist Relationship Specialty Start Date End Date Clinic, [facility] PCP - General 01/20/18 06/28/[address] [place] [address] documented as of this encounter
--- OUTSIDE RECORDS SUMMARY | 2021-12-14 16:21 | XMS_ITS | Encounter Summary ---
:1980 Author Organization [place] Address [address] [facility] [place] [address] Care Team Providers Name Role Phone Luis Fernando Magana Primary Care Provider Reason for Visit Reason Onset Date Comments Erroneous encounter-disregard 04/24/2017 Encounter Details Date Type Department Care Team Description 04/22/2017 Office Visit [facility] Edgar Alfredo ERRONEOUS Clinic Ashly Gauthier MD ENCOUNTER--DISREGARD [address] [place] (Primary Dx) [address] [place] [address] Social History Tobacco Use Types Packs/Day Years Used Date Smoking Tobacco: Every Day Cigarettes 0.1 10 Smokeless Tobacco: Never Comments: 5 cigarettes a day Alcohol Use Standard Drinks/Week Comments Yes 0 (1 standard drink = 0.6 oz pure Stoppe d after found out alcohol) Sex Assigned at Date Recorded Female 01/14/2020 10:57 AM CASE FILLER documented as of this encounter Progress Notes Edgar Alfredo MD - 04/22/2017 10:45 AM CST This encounter was opened in error. Please disregard. FILLER documented in this encounter Plan of Treatment Upcoming Encounters Date Type Specialty Care Team Description 12/20/2021 Office Visit Wound Care Luis Camara, [place] [address] [place], [place] [address] (Wo rk) 01/21/2022 PRE VISIT Gastroenterology Landon Warren, *-*WANDAIN G RECORDS*-* MD Luis Fernando [address] [phone] (Wo rk) 01/21/2022 Office Visit Gastroenterology Juanis Levi [address] [place] [phone] Luis Fernando Miles MD [address] [address] documented as of this encounter Visit Diagnoses Diagnosis ERRONEOUS ENCOUNTER--DISREGARD - Primary documented in this encounter Care Teams Shop Superintendent Relationship Specialty Start Date End Date Luis Fernando Magana PCP - General Family Practice 12/07/16 01/19/[address] [address] documented as of this encounter
--- OUTSIDE RECORDS SUMMARY | 2021-12-14 16:21 | XMS_ITS | Encounter Summary ---
:1980 Author Organization [place] Address [address] [facility] 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 documented as of this encounter Plan of Treatment Upcoming Encounters Date Type Specialty Care Team Description 12/20/2021 Office Visit Wound Care Luis Camara, [place] [address] [place], [place] [address] (Wo rk) 01/21/2022 PRE VISIT Gastroenterology Landon Warren, *-*INCOMIN G RECORDS*-* MD Luis Fernando [address] [facility] [address] [place], [place] [address] (Wo rk) 01/21/2022 Office Visit Gastroenterology Juanis Levi [address] [place] [phone] Luis Fernando Miles MD [address] [facility] [place] [address] documented as of this encounter Visit Diagnoses Not on filedocumented in this encounter Care Teams Liaison Engineer Relationship Specialty Start Date End Date Clinic, [facility] PCP - General 01/20/18 06/28/[address] [place] [address] documented as of this encounter
--- OUTSIDE RECORDS SUMMARY | 2021-12-14 16:21 | XMS_ITS | Encounter Summary ---
:1980 Author Organization [place] Address [address] [facility] [place] [address] Care Team Providers Name Role Phone Luis Fernando Magana Primary Care Provider Reason for Visit Reason Onset Date Comments Medication Request 07/01/2017 Subutex bridge Encounter Details Date Type Department Care Team Description 07/01/2017 Telephone [facility] Edgar Alfredo, [facility] ication Request Clinic Ashly VÁSQUEZ (Subutex bridge ) [address] [place] [address] [place] [phone] (Wo rk) Social History Tobacco Use Types Packs/Day Years Used Date Smoking Tobacco: Every Day Cigarettes 0.1 10 Smokeless Tobacco: Never Comments: 5 cigarettes a day Alcohol Use Standard Drinks/Week Comments Yes 0 (1 standard drink = 0.6 oz pure Stoppe d after found out alcohol) Sex Assigned at Date Recorded Female 01/14/2020 10:57 AM PRESSER FIRST documented as of this encounter Miscellaneous Notes [...] negative for all substances, positive for BUP [employer]ING [employer] reviewed and summarized below: 05.27.2017 - Subutex - 112/28 days (refill from script on 04.24.2017) Ludmila Vega RN on 07/01/2017 at 3:47 PM Telephone Encounter - Mark Roldan - 07/01/2017 3:29 PM CDT Reason for Call: Medication or medication refill: Do you use a [facility]? Name of the pharmacy and phone number for the current request: [facility] [place] tel: [phone] Name of the medication requested: Subutex 2 [...] be reached at: Home number on file [phone] (home) Best Time: Anytime Call taken on 07/01/2017 at 3:29 PM by Mark Roldan documented in this encounter Plan of Treatment Upcoming Encounters Date Type Specialty Care Team Description 12/20/2021 Office Visit Wound Care Luis Camara, [place] [address] [place] [address] (Wo rk) 01/21/2022 PRE VISIT Gastroenterology Landon Warren, *-*WANDAIN G RECORDS*-* MD Luis Fernando [address] [address] (Wo rk) 01/21/2022 Office Visit Gastroenterology Juanis Levi [address] [place] [phone] Luis Fernando Miles MD [address] [phone] documented as of this encounter Visit Diagnoses Diagnosis Uncomplicated opioid dependence (H) Opioid type dependence, unspecified documented in this encounter Care Teams Gin Inspector Relationship Specialty Start Date End Date Luis Fernando Magana PCP - General Family Practice 12/07/16 01/19/[address] [address] documented as of this encounter
--- OUTSIDE RECORDS SUMMARY | 2021-12-14 16:21 | XMS_ITS | Encounter Summary ---
:1980 Author Organization [place] Address [facility] [place] [address] Care Team Providers Name Role Phone Clinic, [facility] Primary Care Provide r Reason for Visit Reason Comments Alcohol Intoxication Encounter Details Date Type Department Care Team Description 05/23/2018 Emergency [facility] Silke Muñiz Alcoholic intoxication without complication (H); [facility] Emergency Dep t MD Margot Elevated AST (SGOT); [address] Elevated ALT measurement [place], [place] [phone] Social History Tobacco Use Types Packs/Day Years Used Date Smoking Tobacco: Every Day Cigarettes 0.1 10 Smokeless Tobacco: Never Comments: 5 cigarettes a day Alcohol Use Standard Drinks/Week Comments Yes 0 (1 standard drink = 0.6 oz pure alcoho l) binge drinks Sex Assigned at Date Recorded Female 01/14/2020 10:57 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 If you answer yes to any of [...] help, contact: Your caregiver. Alcoholics Anonymous (AA). [facility] Intergroup: [phone] [facility] Central Office: [phone] A drug or alcohol rehabilitation program. You [...] treatment Past Surgical History: Breast abscess drained Paper Pattern Folder surgery Thoracic surgery Orthopedic surgery Family History: [...] provider's statements to me. Areli Morejon 05/23/2018 [facility] EMERGENCY DEPARTMENT Silke Muñiz MD 05/23/18 1830 documented in this encounter Plan of Treatment Upcoming Encounters Date Type Specialty Care Team Description 12/20/2021 Office Visit Wound Care Luis Camara DPM [address] [place], [place] [phone] (Wo rk) 01/21/2022 PRE VISIT Gastroenterology Landon Warren, *-*INCOMIN G RECORDS*-* MD Luis Fernando [address] [place] [phone] (Wo rk) 01/21/2022 Office Visit Gastroenterology Juanis Levi [address] [place] [phone] Luis Fernando Miles MD [address] [place] [address] [phone] documented as of this encounter Procedures Procedure [...] UA with Microscopic (05/23/2018 5:11 PM CDT) [facility] Method Time Signature Color Urine Light Yellow 05/23/2018 [facility] 5:22 PM [facility] Appearance Urine Clear 05/23/2018 [facility] 5:22 PM [facility] Glucose Urine Negative NEG^Negat 05/23/2018 [facility] paula mg/dL 5:22 PM [facility] Bilirubin Urine Negative NEG^Negat 05/23/2018 [facility] paula 5:22 PM [facility] Ketones Urine Negative NEG^Negat 05/23/2018 [facility] paula mg/dL 5:22 PM [facility] Specific [place] 1.009 1.003 - 05/23/2018 [facility] Urine 1.035 5:22 PM [facility] Blood Urine Negative NEG^Negat 05/23/2018 [facility] paula 5:22 PM [facility] pH Urine 6.0 5.0 - 7.0 05/23/2018 [facility] pH 5:22 PM [facility] Protein Albumin Negative NEG^Negat 05/23/2018 [facility] Urine paula mg/dL 5:22 PM [facility] Urobilinogen Normal 0.0 - 2.0 05/23/2018 [facility] mg/dL mg/dL 5:22 PM [facility] Nitrite Urine Negative NEG^Negat 05/23/2018 [facility] paula 5:22 PM [facility] Leukocyte Negative NEG^Negat 05/23/2018 [facility] Esterase Urine paula 5:22 PM [facility] Source Midstream 05/23/2018 [facility] Urine 5:11 PM [facility] WBC Urine <1 0 - 5 05/23/2018 [facility] /HPF 5:22 PM [facility] RBC Urine <1 0 - 2 05/23/2018 [place] /HPF 5:22 PM [facility] Bacteria Urine Few (A) NEG^Negat 05/23/2018 [place] [facility] [place]ula /HPF 5:22 PM [facility] Squamous 1 0 - 1 05/23/2018 [place] [facility] Epithelial /HPF /HPF 5:22 PM [facility] Mucous Urine Present (A) NEG^Negat 05/23/2018 [place]ula /LPF 5:22 PM [facility] Specimen (Source) Anatomical Collection Method Collection Time Re ceived Time Location / / Volume Laterality Examination of 05/23/2018 5:11 05/23/2018 5:18 midstream urine PM CDT PM CDT specimen (procedure) Silke Muñiz MD LAB - URINE ORDERABLES Performing Organization Address City/[facility]/ZIP [facility] Phon e Number [facility] [address] [place], [place] [address] [facility] [address] [place] [address] 7, [facility] [phone] Lipase (05/23/2018 3:34 PM CDT) athologist Signature Lipase 172 73 - 393 05/23/2018 [facility] U/L 4:25 PM CDT HOSPITAL Specimen Anatomical Collection Method Collection Time Receive d Time (Source) Location / / Volume Laterality 05/23/2018 3:34 PM 9 3:39 CDT PM CDT Sandra Moreno MD LAB - BLOOD ORDERABLES Performing Organization Address City/[facility]/ZIP [facility] Phon e Number [facility] [address] [place], [place] [address] [facility] [address] [place] [address] 7, [facility] [phone] (ABNORMAL) Comprehensive metabolic panel (05/23/2018 3:34 PM CDT) athologist Signature Sodium 139 133 - 144 05/23/2018 [facility] mmol/L 3:51 PM [facility] Potassium 3.5 3.4 - 5.3 05/23/2018 [facility] mmol/L 3:51 PM [facility] Chloride 106 94 - 109 05/23/2018 [facility] mmol/L 3:51 PM [facility] Carbon Dioxide 27 20 - 32 05/23/2018 [facility] mmol/L 3:56 PM [facility] Anion Gap 6 3 - 14 05/23/2018 [facility] mmol/L 3:56 PM [facility] Glucose 106 (H) 70 - 99 05/23/2018 [facility] mg/dL 3:56 PM [facility] Urea Nitrogen 7 7 - 30 05/23/2018 [facility] mg/dL 3:56 PM [facility] Creatinine 0.64 0.52 - 05/23/2018 [facility] mg/dL 3:56 PM [facility] GFR Estimate >90 >60 05/23/2018 [place] mL/min/{1. 3:56 PM [facility] 73_m2} HOSPITAL Comment: Non GFR Calc Starting 02/03/2018, serum creatinine ba sed estimated GFR (eGFR) will be calculated using the Chronic Kidney Dise [facility] Epidemiology Collaboration (CKD-EPI) equation. GFR Estimate If >90 >60 mL/min/{1.73_m2} 05/23/2018 3: 56 PM [facility] Comment: GFR Calc Starting 02/03/2018, serum creatinine ba sed estimated GFR (eGFR) will be calculated using the Chronic Kidney Dise [facility] Epidemiology Collaboration (CKD-EPI) equation. Calcium 8.6 8.5 - 10.1 05/23/2018 3:56 PM [place] R IDGES mg/dL [facility] Bilirubin Total 0.7 0.2 - 1.3 mg/dL 05/23/2018 3:59 PM [facility] Albumin 3.6 3.4 - 5.0 g/dL 05/23/2018 3:59 PM [facility] Protein Total 7.9 6.8 - 8.8 g/dL 05/23/2018 3:59 PM [facility] Alkaline Phosphatase 126 40 - 150 U/L 05/23/2018 3:59 PM [facility] ALT 164 (H) 0 - 50 U/L 05/23/2018 3:59 PM [facility] AST 251 (H) 0 - 45 U/L 05/23/2018 3:59 PM [facility] Specimen Anatomical Collection Method Collection Time Receive d Time (Source) Location / / Volume Laterality Blood specimen 05/23/2018 3:34 PM 019 3:39 (specimen) CDT PM CDT Silke Muñiz MD LAB - BLOOD ORDERABLES Performing Organization Address City/State/ZIP Code Phon e Number [facility] [address] [place] [address] [facility] [address] [phone] (ABNORMAL) CBC with platelets differential (05/23/2018 3:34 PM CDT) [facility] Method Time Signature WBC 3.3 (L) 4.0 - 05/23/2018 [facility] 11.0 3:42 PM [facility] 10e9/L [facility] RBC Count 4.13 3.8 - 5.2 05/23/2018 [facility] 10e12/L 3:42 PM [facility] Hemoglobin 13.5 11.7 - 05/23/2018 [facility] 15.7 g/dL 3:42 PM [facility] Hematocrit 39.9 35.0 - 05/23/2018 [facility] 47.0 % 3:42 PM [facility] MCV 97 78 - 100 05/23/2018 [facility] fl 3:42 PM [facility] MCH 32.7 26.5 - 05/23/2018 [facility] 33.0 pg 3:42 PM [facility] MCHC 33.8 31.5 - 05/23/2018 [facility] 36.5 g/dL 3:42 PM [facility] RDW 13.2 10.0 - 05/23/2018 [facility] 15.0 % 3:42 PM [facility] Platelet Count 150 150 - 450 05/23/2018 [facility] 10e9/L 3:42 PM [facility] Diff Method Automated 05/23/2018 [facility] Method 3:42 PM [facility] % Neutrophils 41.0 % 05/23/2018 [facility] 3:42 PM [facility] % Lymphocytes 43.6 % 05/23/2018 [facility] 3:42 PM [facility] % Monocytes 9.7 % 05/23/2018 [facility] 3:42 PM [facility] % Eosinophils 4.8 % 05/23/2018 [facility] 3:42 PM [facility] % Basophils 0.6 % 05/23/2018 [facility] 3:42 PM [facility] % Immature 0.3 % 05/23/2018 [facility] Granulocytes 3:42 PM [facility] Nucleated RBCs 0 0 /100 05/23/2018 [facility] 3:42 PM [facility] Absolute 1.4 (L) 1.6 - 8.3 05/23/2018 [facility] [facility] Neutrophil 10e9/L 3:42 PM [facility] Absolute 1.4 0.8 - 5.3 05/23/2018 [facility] Lymphocytes 10e9/L 3:42 PM [facility] Absolute 0.3 0.0 - 1.3 05/23/2018 [facility] Monocytes 10e9/L 3:42 PM [facility] Absolute 0.2 0.0 - 0.7 05/23/2018 [facility] Eosinophils 10e9/L 3:42 PM [facility] Absolute 0.0 0.0 - 0.2 05/23/2018 [facility] Basophils 10e9/L 3:42 PM [facility] Abs Immature 0.0 0 - 0.4 05/23/2018 [facility] Granulocytes 10e9/L 3:42 PM [facility] Absolute 0.0 05/23/2018 [place] [facility] Nucleated RBC 3:42 PM [facility] Specimen Anatomical Collection Method Collection Time Receive d Time (Source) Location / / Volume Laterality Blood specimen 05/23/2018 3:34 PM 019 3:39 (specimen) CDT [facility] Silke Muñiz MD LAB - BLOOD ORDERABLES Performing Organization Address City/State/ZIP Code Phon e Number M [place] [address] [address] [place] [address] [facility] [address] [address], [facility] [phone] (ABNORMAL) Alcohol ethyl (05/23/2018 3:34 PM CDT) P athologist Signature Ethanol g/dL 0.17 (H) <0.01 g/dL 05/23/2018 [place] 3:59 PM CDT [facility] Specimen Anatomical Collection Method Collection Time Receive d Time (Source) Location / / Volume Laterality Blood specimen 05/23/2018 3:34 PM 019 3:39 (specimen) CDT PM CDT Silke Muñiz MD LAB - BLOOD ORDERABLES Performing Organization Address City/State/ZIP Code Phon e Number [facility] [address], [place] [address] [facility] [address] [place], [place] [address] [facility] [phone] documented in this encounter Visit Diagnoses Diagnosis [...] 05/23/2018 LORazepam (ATIVAN) tablet 2 mg (COMPLETED) 2534 (Given - Provider: Leydi Steven RN) 2 [...] minutes. documented in this encounter Care Teams Shake Cutter Relationship Specialty Start Date End Date Clinic, [facility] PCP - General 01/20/18 06/28/[address] [place] [address] documented as of this encounter
--- OUTSIDE RECORDS SUMMARY | 2021-12-14 16:21 | XMS_ITS | Encounter Summary ---
:1980 Author Organization [place] Address [address] [address] Care Team Providers Name Role Phone Luis Fernando Magana Primary Care Provider Encounter Details Date Type Department Care Team Description 04/07/2017 Telephone [facility] Nithya Alfredo MD [place] [address] [facility] [address] [place], [place] [address] [phone] [place] [address] [phone] Social History Tobacco Use Types Packs/Day Years Used Date Smoking Tobacco: Every Day Cigarettes 0.1 10 Smokeless Tobacco: Never Comments: 5 cigarettes a day Alcohol Use Standard Drinks/Week Comments Yes 0 (1 standard drink = 0.6 oz pure Stoppe d after found out alcohol) Sex Assigned at Date Recorded Female 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/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 documented as of this encounter Miscellaneous Notes Telephone Encounter - Edgar Alfredo MD - 04/07/2017 12:38 PM CST Called patient re: missed appointment Please add on 04/10/17 at 2:30 Bridge ordered [place] FLOOR OPERATOR documented in this encounter Plan of Treatment Upcoming Encounters Date Type Specialty Care Team Description 12/20/2021 Office Visit Wound Care Luis Camara, [place] [address] [place] [address] (Wo rk) 01/21/2022 PRE VISIT Gastroenterology Landon Warren, *-*WANDAIN G RECORDS*-* MD Luis Fernando [address] 812535 (Wo rk) 01/21/2022 Office Visit Gastroenterology Juanis Levi [address] [place] [phone] Luis Fernando Miles MD [address] [address] documented as of this encounter Visit Diagnoses Diagnosis Uncomplicated opioid dependence (H) Opioid type dependence, unspecified documented in this encounter Care Teams Strategy Lead Relationship Specialty Start Date End Date Luis Fernando Magana PCP - General Family Practice 12/07/16 01/19/[address] [address] documented as of this encounter
--- OUTSIDE RECORDS SUMMARY | 2021-12-14 16:21 | XMS_ITS | Encounter Summary ---
:1980 Author Organization [place] Address [address] [facility] [place] [address] Care Team Providers Name Role Phone Luis Fernando Magana Primary Care Provider Reason for Visit Reason Onset Date Comments Erroneous encounter-disregard 04/11/2017 Encounter Details Date Type Department Care Team Description 04/10/2017 Office Visit [facility] Edgar Alfredo [facility] Ashly Gauthier MD ENCOUNTER--DISREGARD [address] [place] (Primary Dx) [address] [place] [phone] Social History Tobacco Use Types Packs/Day Years Used Date Smoking Tobacco: Every Day Cigarettes 0.1 10 Smokeless Tobacco: Never Comments: 5 cigarettes a day Alcohol Use Standard Drinks/Week Comments Yes 0 (1 standard drink = 0.6 oz pure Stoppe d after found out alcohol) Sex Assigned at Date Recorded Female 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 Please disregard. INSPECTOR documented in this encounter Plan of Treatment Upcoming Encounters Date Type Specialty Care Team Description 12/20/2021 Office Visit Wound Care Luis Camara, [place] [address] [place], [place] 14[address] (Wo rk) 01/21/2022 PRE VISIT Gastroenterology Landon Warren, *-*WANDAIN G RECORDS*-* MD Luis Fernando [address] [phone] (Wo rk) 01/21/2022 Office Visit Gastroenterology Juanis Levi [address] [place] [phone] Luis Fernando Miles MD [address] [phone] documented as of this encounter Visit Diagnoses Diagnosis ERRONEOUS ENCOUNTER--DISREGARD - Primary documented in this encounter Care Teams Technology Analyst Relationship Specialty Start Date End Date Luis Fernando Magana PCP - General Family Practice 12/07/16 01/19/[address] [address] documented as of this encounter
--- OUTSIDE RECORDS SUMMARY | 2021-12-14 16:21 | XMS_ITS | Encounter Summary ---
:1980 Author Organization [place] Address [address] [facility] [place] [address] Care Team Providers Name Role Phone Luis Fernando Magana Primary Care Provider Reason for Visit Reason Onset Date Comments Call Back 08/11/2017 Insurance questions Encounter Details Date Type Department Care Team Description 08/11/2017 Telephone [facility] Edgar Workman Cal l Back (Insurance [facility] [place] questions ) [address] [place] [address] [place] [phone] (Wo rk) Social History Tobacco Use Types Packs/Day Years Used Date Smoking Tobacco: Every Day Cigarettes 0.1 10 Smokeless Tobacco: Never Comments: 5 cigarettes a day Alcohol Use Standard Drinks/Week Comments Yes 0 (1 standard drink = 0.6 oz pure Stoppe d after found out alcohol) Sex Assigned at Date Recorded Female 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 Will forward to [facility] provider for review. Telephone Encounter - Kari Turner - 09/04/2017 12:17 PM CDT Pt called regarding the same issue. Pt states she is still unable to switch her Insurance from [employer] (which [facility] does not accept) to [employer] (which we do accept). Pt stated they can not switch her until the end of 2017. Pt is requesting a call back from [facility] to discuss this further and request bridges of subx till she can switch insurances. Pt# [phone] (okay to leave detailed message) Kari Turner Hr Consultant Telephone Encounter - Edgar Workman MD - 08/11/2017 4:59 PM CDT Discussed with patient Advised find doctor that prescribes Suboxone [place] MAGNETIC GRINDER OPERATOR - no issues 1 month bridge [...] be reached at: Home number on file [phone] (home) Best Time: anytime Can we leave a detailed message on this number? YES Call taken on 08/11/2017 at 12:43 PM by Mark Roldan documented in this encounter Plan of Treatment Upcoming Encounters Date Type Specialty Care Team Description 12/20/2021 Office Visit Wound Care Luis Camara, [place] [address] [place] [address] (Wo rk) 01/21/2022 PRE VISIT Gastroenterology Landon Warren, *-*WANDAIN G RECORDS*-* MD LuisF ernando [address] [place] [phone] (Wo rk) 01/21/2022 Office Visit Gastroenterology Juanis Levi [address] [place] [phone] Luis Fernando Miles MD [address] [place] [address] documented as of this encounter Visit Diagnoses Diagnosis Uncomplicated opioid dependence (H) Opioid type dependence, unspecified Major depressive disorder, recurrent epi sode, moderate (H) Major depressive disorder, recurrent epi sode, moderate documented in this encounter Care Teams Drycleaner Relationship Specialty Start Date End Date Luis Fernando Magana PCP - General Family Practice 12/07/16 01/19/[address] [address] documented as of this encounter
--- OUTSIDE RECORDS SUMMARY | 2021-12-14 16:21 | XMS_ITS | Encounter Summary ---
:1980 Author Organization [place] Address [address] [facility] [place] [address] Care Team Providers Name Role Phone Luis Fernando Magana Primary Care Provider Reason for Visit Reason Comments Addiction Problem Encounter Details Date Type Department Care Team Description 04/24/2017 Office Visit [facility] Edgar Alfredo Uncomplic ated opioid Clinic Ashly Gauthier MD dependence (H) [address] [place] [phone] Social History Tobacco Use Types Packs/Day Years Used Date Smoking Tobacco: Every Day Cigarettes 0.1 10 Smokeless Tobacco: Never Comments: 5 cigarettes a day Alcohol Use Standard Drinks/Week Comments Yes 0 (1 standard drink = 0.6 oz pure Stoppe d after found out alcohol) Sex Assigned at Date Recorded Female 01/14/2020 10:57 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 documented as of this encounter Last Filed Vital Signs Vital Sign Reading Time Taken Comments Blood Pressure 112/66 04/24/2017 4:44 PM 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 Pulse 86 04/24/2017 4:44 PM 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 Temperature 37 ??C (98.6 ??F) 04/24/2017 4:44 PM 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 Respiratory Rate 12 04/24/2017 4:44 PM 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 Oxygen Saturation 100% 04/24/2017 4:44 PM 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 Inhaled Oxygen Concentration - - Weight 82.1 kg (181 lb) 04/24/2017 4:44 PM 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 Height - - Body Mass Index 29.21 [...] contact you when it is ready to waste picker You are at risk for overdose [...] is generally not enough to lead to group home recovery. This may include having some type [...] one. The addiction medicine clinic number is [phone]. If you cannot make your appointment please call the office and reschedule immediately. If you are out of medication a bridge can be sent to your pharmacy to last until the date of your rescheduled appointment. Our clinic is open from Friday-Friday 0800-4:30pm and there is not an LICENSE DISTRIBUTOR after hours service. If medical care is [...] you do not run out of medications. [facility] ([facility]) does not accept [place] [email or web address] or [employer] Medical assistance insurance. OTECHNOLOGIST documented in this encounter Progress Notes Edgar [...] been going to recovery meetings:not at all. [place] Board [employer]acy Data Base Reviewed: [...] So Luciano MD; Location: [facility] OR ??? CLOUD CONSULTANT SURGERY ??? ORTHOPEDIC SURGERY ??? THORACIC SURGERY [...] Panel 13 Result Value Ref Range Cannabinoids ([id number]-3-gyaaxlt-1-MDS) Not Detected NDET^Not Detected ng/mL Phencyclidine (Phencyclidine) [...] ng/mL 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 FOR PENITENTIARY USE OF HIGH RISK MEDICATION High Risk [...] visit in 2 MONTHS Edgar Alfredo MD [facility] documented in this encounter [...] kg). Medication Reconciliation: complete Sabina Mckay CMA OTECHNOLOGIST documented in this encounter Plan of Treatment Upcoming Encounters Date Type Specialty Care Team Description 12/20/2021 Office Visit Wound Care Luis Camara DPM [address] [place], [place] [phone] (Wo rk) 01/21/2022 PRE VISIT Gastroenterology Landon Warren, *-*INCOMIN G RECORDS*-* MD Luis Fernando [address] [place] [phone] (Wo rk) 01/21/2022 Office Visit Gastroenterology Juanis Levi [address] [place] [phone] Luis Fernando Miles MD [address] [place] [address] [phone] documented as of this encounter Procedures Procedure Name Priority Date/Time Associated Diagnosis Comme nts URINE DRUGS OF Routine 04/24/2017 5:16 PM Uncomplicated opioid Results for this ABUSE SCREEN PANEL 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 dependence (H) procedu re are in 13 the results section. documented in this encounter Results (ABNORMAL) Urine Drugs of Abuse Screen Panel 13 (04/24/2017 5:16 PM 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) [facility] Method Time Signature Cannabinoids Not Detected NDET^Not 04/24/2017 [facility] (80-qtz-7-carbox Detected 6:02 PM 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 y-9-THC) ng/mL Comment: Cutoff for a negative cannabino id is 50 ng/mL or less. Phencyclidine Not Detected NDET^Not Detected 04/24/2017 6:02 PM [facility] (Phencyclidine) ng/mL 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 Comment: Cutoff for a negative PCP is 25 ng/mL or less. Cocaine (Benzoylecgonine) Not Detected NDET^Not Detected 0 04/24/2017 6:02 PM [facility] ng/mL 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 Comment: Cutoff for a negative cocaine i s 150 ng/ml or less. Methamphetamine Not Detected NDET^Not 04/24/2017 6:02 PM [facility] (d-Methamphetamine) Detected ng/mL 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 Comment: Cutoff for a negative methamphe tamine is 500 ng/ml or less. Opiates (Morphine) Not Detected NDET^Not Detected 04/25/19 18 6:02 PM 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 [facility] ng/mL Comment: Cutoff for a negative opiate is 100 ng/ml or less. Amphetamine Not Detected NDET^Not Detected 04/24/2017 6:02 P M [facility] (d-Amphetamine) ng/mL 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 Comment: Cutoff for a negative amphetami ne is 500 ng/mL or less. Benzodiazepines Not Detected NDET^Not Detected 04/24/2017 6: 02 PM [facility] (Nordiazepam) ng/mL 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 Comment: Cutoff for a negative benzodiaz epine is 150 ng/ml or less. Tricyclic Antidepressants Not Detected NDET^Not Detected 0 04/24/2017 6:02 PM [facility] (Desipramine) ng/mL 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 Comment: Cutoff for a negative tricyclic antidepressant is 300 ng/ml or less. Methadone (Methadone) Not Detected NDET^Not Detected 018 6:02 PM [facility] ng/mL 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 Comment: Cutoff for a negative methadone is 200 ng/ml or less. Barbiturates Not Detected NDET^Not Detected 04/24/2017 6:02 PM [facility] (Butalbital) ng/mL 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 Comment: Cutoff for a negative barbituat e is 200 ng/ml or less. Oxycodone (Oxycodone) Not Detected NDET^Not Detected 018 6:02 PM [facility] ng/mL 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 Comment: Cutoff for a negative Oxycodone is 100 ng/mL or less. Propoxyphene Not Detected NDET^Not Detected 04/24/2017 6:02 PM [facility] (Norpropoxyphene) ng/mL 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 Comment: Cutoff for a negative propoxyph tina is 300 ng/ml or less Buprenorphine Detected, NDET^Not 04/24/2017 6:02 PM [facility] (Buprenorphine) Abnormal Result Detected ng/mL 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 (A) Comment: Cutoff for a positive buprenorphine is g reater than 10 ng/ml. This is an unconfirmed screening result to be used for medical purposes only. Order [id number] for confirmation or indivi dual confirmation tests to [facility]. Specimen Anatomical Collection Method Collection Time Receive d Time (Source) Location / / Volume Laterality Urine specimen 04/24/2017 5:16 PM 018 5:17 (specimen) 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 PM 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 Edgar Alfredo MD LAB - URINE ORDERABLES Performing Organization Address City/State/ZIP [place] [address] [facility] [address] [address] [facility] documented in this encounter Visit Diagnoses Diagnosis Uncomplicated opioid dependence (H) Opioid type dependence, unspecified documented in this encounter Care Teams Senior Marketing Manager Relationship Specialty Start Date End Date Luis Fernando Magana PCP - General Family Practice 12/07/16 01/19/[address] [address] documented as of this encounter
--- OUTSIDE RECORDS SUMMARY | 2021-12-14 16:21 | XMS_ITS | Encounter Summary ---
:1980 Author Organization [place] Address [address] 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 documented as of this encounter Plan of Treatment Upcoming Encounters Date Type Specialty Care Team Description 12/20/2021 Office Visit Wound Care Luis Camara, [place] [address] [place], [place] [phone] (Wo rk) 01/21/2022 PRE VISIT Gastroenterology Landon Warren, *-*INCOMIN G RECORDS*-* MD Luis Fernando [address] [facility] [address] [place], [place] [address] (Wo rk) 01/21/2022 Office Visit Gastroenterology Juanis Levi [address] [place] [phone] Luis Fernando Miles MD [address] [facility] [address] [place] [address] documented as of this encounter Visit Diagnoses Not on filedocumented in this encounter Care Teams Rat Trapper Relationship Specialty Start Date End Date Clinic, [facility] PCP - General 01/20/18 06/28/[address] [place] [address] documented as of this encounter
--- OUTSIDE RECORDS SUMMARY | 2021-12-14 16:21 | XMS_ITS | Encounter Summary ---
:1980 Author Organization [place] Address [address] [facility] [place] [address] Care Team Providers Name Role Phone Luis Fernando Magana Primary Care Provider Reason for Visit Reason Onset Date Comments Refill Request 10/31/2017 buprenorphine (SUBUT EX) 2 MG SUBL sublingual tablet Encounter Details Date Type Department Care Team Description 10/31/2017 Refill [facility] Edgar Alfredo, Ref ill Request Clinic Ashly VÁSQUEZ (buprenorphine (SUBUTEX) [address] [place] MG SUBL sublingual [address] tablet) [place] [phone] (Wo rk) Social History Tobacco Use Types Packs/Day Years Used Date Smoking Tobacco: Every Day Cigarettes 0.1 10 Smokeless Tobacco: Never Comments: 5 cigarettes a day Alcohol Use Standard Drinks/Week Comments Yes 0 (1 standard drink = 0.6 oz pure Stoppe d after found out alcohol) Sex Assigned at Date Recorded Female 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/2020 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 documented as of this encounter Miscellaneous [...] Visit Wound Care Luis Camara DPM [address] [place] [address] (Wo rk) 01/21/2022 PRE VISIT Gastroenterology Landon Warren, *-*HEATHER G RECORDS*-* MD Luis Fernando [address] [place] [phone] (Wo rk) 01/21/2022 Office Visit Gastroenterology Juanis Levi [address] [place] [phone] Luis Fernando Miles MD [address] [place] [phone] documented as of this encounter Visit Diagnoses Diagnosis Uncomplicated opioid dependence (H) Opioid type dependence, unspecified documented in this encounter Care Teams Operational Test Mechanic Relationship Specialty Start Date End Date Luis Fernando Magana PCP - General Family Practice 12/07/16 01/19/[address] [address] documented as of this encounter
--- OUTSIDE RECORDS SUMMARY | 2021-12-14 16:21 | XMS_ITS | Encounter Summary ---
:1980 Author Organization [place] Address [address] [facility] [place] [address] Care Team Providers Name Role Phone Luis Fernando Magana Primary Care Provider Reason for Visit Reason Comments Medication Refill WELLBUTRIN SR 150 MG 12 hr t ablet Encounter Details Date Type Department Care Team Description 05/26/2017 Refill [facility] Edgar Alfredo, Med ication Refill Clinic Ashly VÁSQUEZ (WELLBUTRIN SR 150 MG [address] [place] hr tablet) [address] [place] [phone] (Wo rk) Social History Tobacco Use Types Packs/Day Years Used Date Smoking Tobacco: Every Day Cigarettes 0.1 10 Smokeless Tobacco: Never Comments: 5 cigarettes a day Alcohol Use Standard Drinks/Week Comments Yes 0 (1 standard drink = 0.6 oz pure Stoppe d after found out alcohol) Sex Assigned at Date Recorded Female 01/14/2020 10:57 AM JAVA SOLUTIONS ARCHITECT documented as of this encounter Miscellaneous Notes [...] Visit Wound Care Luis Camara DPM [address] [place] [address] (Wo rk) 01/21/2022 PRE VISIT Gastroenterology Landon Warren, *-*HEATHER G RECORDS*-* MD Luis Fernando [address] [address] (Wo rk) 01/21/2022 Office Visit Gastroenterology Juanis Levi [address] [place] [phone] Luis Fernando Miles MD 6 [facility] [address] [place] [address] documented as of this encounter Visit Diagnoses Diagnosis Major depressive disorder, recurrent epi sode, moderate (H) Major depressive disorder, recurrent epi sode, moderate Uncomplicated opioid dependence (H) Opioid type dependence, unspecified documented in this encounter Care Teams Beauty Counselor Relationship Specialty Start Date End Date Luis Fernando Magana PCP - General Family Practice 12/07/16 01/19/[address] [address] documented as of this encounter
--- OUTSIDE RECORDS SUMMARY | 2021-12-14 16:21 | XMS_ITS | Encounter Summary ---
:1980 Author Organization [place] Address [facility] [place] [address] Care Team Providers Name Role Phone Clinic, Formerly [facility] Primary Care Provide r Reason for Visit Reason Comments Chest Pain Encounter Details Date Type Department Care Team Description 01/20/2018 - Emergency [facility] Marycarmen Banks Alcohol withdrawal syndrome without complication (H); 01/21/2018 [facility] Emergency MD Angel[facility] [address] [place] [id number] [facility] [place] [phone] [place], [place] [id number] (Wo rk) Social History Tobacco Use Types Packs/Day Years Used Date Smoking Tobacco: Every Day Cigarettes 0.1 10 Smokeless Tobacco: Never Comments: 5 cigarettes a day Alcohol Use Standard Drinks/Week Comments Yes 0 (1 standard drink = 0.6 oz pure alcoho l) binge drinks Sex Assigned at Date Recorded Female 01/14/2020 10:57 AM WINDCHILL ADMINISTRATOR documented as of this encounter Last Filed Vital Signs Vital Sign Reading Time Taken Comments Blood Pressure 135/80 01/21/2018 12:30 AM WINDCHILL ADMINISTRATOR Pulse 84 01/20/2018 10:52 PM WINDCHILL ADMINISTRATOR Temperature 36.8 ??C (98.2 ??F) 01/20/2018 10:23 PM WINDCHILL ADMINISTRATOR Respiratory Rate 17 01/21/2018 12:30 AM WINDCHILL ADMINISTRATOR Oxygen Saturation 98% 01/21/2018 12:30 AM WINDCHILL ADMINISTRATOR Inhaled Oxygen Concentration - - Weight - [...] CST IV cannula removed from RAC intact CHILL ADMINISTRATOR Shukri Fuentes RN - 01/20/2018 10:24 PM [...] Palpations Time: 2218 Vent. Rate 98 bpm. HI interval 150. QRS duration 86. QT/QTc 376/480. [...] provider's statements to me. Nora Correa 01/20/2018 [facility] EMERGENCY DEPARTMENT Marycarmen Banks MD 01/21/18 0058 CHILL ADMINISTRATOR documented in this encounter Plan of Treatment Upcoming Encounters Date Type Specialty Care Team Description 12/20/2021 Office Visit Wound Care Luis Camara DPM [address] [place] [address] (Reinaldo rk) 01/21/2022 PRE VISIT Gastroenterology Landon Warren, *-*HEATHER Barriga RECORDS*-* MD Luis Fernando [address] [facility] [address] [place] [address] (Reinaldo rk) 01/21/2022 Office Visit Gastroenterology Juanis Levi [facility] [place] [phone] Luis Fernando Miles MD [address] [facility] [address] [place] [address] documented as of this encounter Procedures Procedure Name Priority Date/Time Associated Comments Diagnosis XR CHEST 2 VIEWS STAT 01/20/2018 10:58 Results for this PM WINDCHILL ADMINISTRATOR procedure are i n the results section. CBC WITH PLATELETS & STAT 01/20/2018 10:36 Res ults for this DIFFERENTIAL PM WINDCHILL ADMINISTRATOR procedure are i n the results section. TROPONIN I STAT 01/20/2018 10:36 Results for this PM WINDCHILL ADMINISTRATOR procedure are i n the results section. MAGNESIUM Routine 01/20/2018 10:36 Results for this PM WINDCHILL ADMINISTRATOR procedure are i n the results section. D DIMER QUANTITATIVE Routine 01/20/2018 10:36 Res ults for this PM WINDCHILL ADMINISTRATOR procedure are i n the results section. COMPREHENSIVE STAT 01/20/2018 10:36 Results fo r this METABOLIC PANEL PM WINDCHILL ADMINISTRATOR procedure ar e in the results section. ETHYL ALCOHOL LEVEL Routine 01/20/2018 10:36 Resu lts for this PM WINDCHILL ADMINISTRATOR procedure are i n the results section. EKG 12-LEAD, TRACING STAT 01/20/2018 10:18 Res ults for this ONLY PM WINDCHILL ADMINISTRATOR procedure are i n the results section. documented in this encounter Results Chest XR, PA & LAT (01/20/2018 10:58 PM WINDCHILL ADMINISTRATOR) Anatomical Region Laterality Modality Chest Digital Radiography Specimen (Source) Anatomical Location Collection Method / Collectio n Time Received Time / Laterality Volume Impressions 01/20/2018 11:03 PM WINDCHILL ADMINISTRATOR IMPRESSION: No radiographic evidence of acute chest abnormality. GIOVANNI RHODES MD Narrative 01/20/2018 11:03 PM WINDCHILL ADMINISTRATOR CHEST TWO VIEWS 01/20/2018 10:58 PM HISTORY: [...] IMAGING ORDER JEFFERY Magnesium (01/20/2018 10:36 PM WINDCHILL ADMINISTRATOR) athologist Signature Magnesium 2.1 1.6 - 2.3 01/20/2018 [facility] mg/dL 11:02 PM [facility] Specimen Anatomical Collection Method Collection Time Receive d Time (Source) Location / / Volume Laterality 01/20/2018 10:36 01/20/2018 PM WINDCHILL ADMINISTRATOR 10:37 PM WINDCHILL ADMINISTRATOR Marycarmen Banks MD LAB - BLOOD ORDERABLES Performing Organization Address City/[facility]/ZIP [facility] Phon e Number [facility] [address] [place], [place] [address] [phone] Alcohol ethyl (01/20/2018 10:36 PM WINDCHILL ADMINISTRATOR) athologist [facility] Ethanol g/dL <0.01 <0.01 g/dL 01/20/2018 [place] 11:02 PM [facility] Specimen Anatomical Collection Method Collection Time Receive d Time (Source) Location / / Volume Laterality 01/20/2018 10:36 01/20/2018 PM WINDCHILL ADMINISTRATOR 10:37 PM WINDCHILL ADMINISTRATOR Marycarmen Banks MD LAB - BLOOD ORDERABLES Performing Organization Address City/[facility] Phon e Number [facility] [address] [place], [place] [address] [place] [address] [phone] D dimer quantitative (01/20/2018 10:36 PM WINDCHILL ADMINISTRATOR) athologist Signature D Dimer 0.4 0.0 - 0.50 01/20/2018 [facility] ug/ml FEU 10:56 PM [facility] Comment: This D-dimer assay is intended for use i n conjunction with a clinical pretest probability assessment model to exclude pulmonary embolism (PE) and deep venous thrombosis (DVT) in outpatients s uspected of PE or DVT. The cut-off value is 0.5 ug/mL FEU. Specimen Anatomical Collection Method Collection Time Receive d Time (Source) Location / / Volume Laterality 01/20/2018 10:36 01/20/2018 PM WINDCHILL ADMINISTRATOR 10:37 PM WINDCHILL ADMINISTRATOR Marycarmen Banks MD LAB - BLOOD ORDERABLES Performing Organization Address [facility] e Number [facility] [address] [place], [place] [address] [address], [facility] [phone] Troponin I (01/20/2018 10:36 PM WINDCHILL ADMINISTRATOR) athologist Signature Troponin I ES <0.015 0.000 - 01/20/2018 [place] 0.045 ug/L 11:02 PM [facility] Comment: The 99th percentile for upper reference range is 0.045 ug/L. ??Troponin values in the range of 0.045 - 0.120 ug/L may b e associated with risks of adverse clinical events. Specimen Anatomical Collection Method Collection Time Receive d Time (Source) Location / / Volume Laterality Blood specimen 01/20/2018 10:36 8 (specimen) PM WINDCHILL ADMINISTRATOR 10:37 PM WINDCHILL ADMINISTRATOR Marycarmen Banks MD LAB - BLOOD ORDERABLES Performing Organization Address [facility] e Number [place] [address] [address] [place], [place] [address] [place] [address] [address] [place], [place] [address], [facility] [phone] (ABNORMAL) Comprehensive metabolic panel (01/20/2018 10:36 PM WINDCHILL ADMINISTRATOR) athologist Signature Sodium 136 133 - 144 01/20/2018 [place] mmol/L 11:02 PM [facility] Potassium 3.5 3.4 - 5.3 01/20/2018 [place] mmol/L 11:02 PM [facility] Chloride 102 94 - 109 01/20/2018 [place] mmol/L 11:02 PM [facility] Carbon Dioxide 28 20 - 32 01/20/2018 [place] mmol/L 11:02 PM [facility] Anion Gap 6 3 - 14 01/20/2018 [place] mmol/L 11:02 PM [facility] Glucose 103 (H) 70 - 99 01/20/2018 [place] mg/dL 11:02 PM [facility] Urea Nitrogen 7 7 - 30 01/20/2018 [place] mg/dL 11:02 PM [facility] Creatinine 0.76 0.52 - 01/20/2018 [facility] 1.04 mg/dL 11:02 PM [facility] GFR Estimate 86 >60 01/20/2018 [place] mL/min/1.7 11:[address] Comment: Non GFR Calc GFR Estimate If >90 >60 mL/min/1.7m2 01/20/2018 11:02 PM [facility] Comment: GFR Calc Calcium 8.8 8.5 - 10.1 01/20/2018 11:02 PM [facility] mg/dL [facility] Bilirubin Total 1.5 (H) 0.2 - 1.3 mg/dL 01/20/2018 11:[address] [facility] Albumin 3.9 3.4 - 5.0 g/dL 01/20/2018 11:02 PM [facility] Protein Total 8.3 6.8 - 8.8 g/dL 01/20/2018 11:02 PM [facility] Alkaline Phosphatase 129 40 - 150 U/L 01/20/2018 11:[address] [facility] ALT 202 (H) 0 - 50 U/L 01/20/2018 11:[address] [facility] AST 266 (H) 0 - 45 U/L 01/20/2018 11:[address] [facility] Specimen Anatomical Collection Method Collection Time Receive d Time (Source) Location / / Volume Laterality Blood specimen 01/20/2018 10:36 8 (specimen) PM WINDCHILL ADMINISTRATOR 10:37 PM [facility] Marycarmen Banks MD LAB - BLOOD ORDERABLES Performing Organization Address City/State/ZIP Code Phon e Number M [facility] [address] [place], [place] [address] [facility] [address] [place] [address], [facility] [phone] (ABNORMAL) CBC with platelets differential (01/20/2018 10:36 PM [facility]) [facility] gist Method Time Signature WBC 5.0 4.0 - 01/20/2018 [facility] 11.0 10:43 PM [facility] 10e9/L [facility] RBC Count 4.58 3.8 - 5.2 01/20/2018 [facility] 10e12/L 10:43 PM [facility] Hemoglobin 15.3 11.7 - 01/20/2018 [facility] 15.7 g/dL 10:43 PM [facility] Hematocrit 44.9 35.0 - 01/20/2018 [facility] 47.0 % 10:43 [facility] MCV 98 78 - 100 01/20/2018 [facility] fl 10:43 [facility] MCH 33.4 (H) 26.5 - 01/20/2018 [facility] 33.0 pg 10:43 PM [facility] MCHC 34.1 31.5 - 01/20/2018 [facility] 36.5 g/dL 10:43 [facility] RDW 11.8 10.0 - 01/20/2018 [facility] 15.0 % 10:43 PM [facility] Platelet Count 170 150 - 450 01/20/2018 [facility] 10e9/L 10:43 PM [facility] Diff Method Automated 01/20/2018 [facility] Method 10:43 PM [facility] % Neutrophils 61.7 % 01/20/2018 [facility] 10:43 PM [facility] % Lymphocytes 28.4 % 01/20/2018 [facility] 10:43 [facility] % Monocytes 7.1 % 01/20/2018 [facility] 10:43 [facility] % Eosinophils 2.2 % 01/20/2018 [facility] 10:43 [facility] % Basophils 0.4 % 01/20/2018 [facility] 10:43 [facility] % Immature 0.2 % 01/20/2018 [facility] Granulocytes 10:43 [facility] Nucleated RBCs 0 0 /100 01/20/2018 [facility] 10:43 [facility] Absolute 3.1 1.6 - 8.3 01/20/2018 [facility] Neutrophil 10e9/L 10:43 PM [facility] Absolute 1.4 0.8 - 5.3 01/20/2018 [facility] Lymphocytes 10e9/L 10:43 PM [facility] Absolute 0.4 0.0 - 1.3 01/20/2018 [facility] Monocytes 10e9/L 10:43 PM [facility] Absolute 0.1 0.0 - 0.7 01/20/2018 [facility] Eosinophils 10e9/L 10:43 PM [facility] Absolute 0.0 0.0 - 0.2 01/20/2018 [facility] Basophils 10e9/L 10:43 PM [facility] Abs Immature 0.0 0 - 0.4 01/20/2018 [facility] Granulocytes 10e9/L 10:43 PM [facility] Absolute 0.0 01/20/2018 [facility] Nucleated RBC 10:43 PM [facility] Specimen Anatomical Collection Method Collection Time Receive d Time (Source) Location / / Volume Laterality Blood specimen 01/20/2018 10:36 8 (specimen) PM WINDCHILL ADMINISTRATOR 10:37 PM WINDCHILL ADMINISTRATOR Marycarmen Banks MD LAB - BLOOD ORDERABLES Performing Organization Address City/State/ZIP Code Phon e Number [place] [address] [place] [address] [phone] EKG 12-lead, tracing only (01/20/2018 10:18 PM WINDCHILL ADMINISTRATOR) [facility] gist Method Time Signature Interpretation ECG Click View RADIOLOGY Image link RESULTS to view waveform and result Specimen (Source) Anatomical Collection Method Collection Time Re ceived Time Location / / Volume Laterality 01/20/2018 10:18 PM WINDCHILL ADMINISTRATOR Marycarmen Banks MD ECG ORDERABLES Performing Organization Address City/State/ZIP [facility] Phon e Number RADIOLOGY RESULTS documented in [...] 1,000 mLs 1000 mL/hr Intravenous, 1,000 mL, WINDCHILL ADMINISTRATOR ONCE, at 1,000 mL/hr, Administer over 1 Hours, On 01/20/18 at 2256, For 1 dose diphenhydrAMINE (BENADRYL) injection 25 mg Given 01/20/2018 11:36 PM WINDCHILL ADMINISTRATOR 25 mg 25 mg, Intravenous, ONCE, On 01/20/18 at 2330, For 1 dose, For ordered IV doses 1-50 mg, give IV Push undiluted. Give each 25mg over a minimum of 1 minute. Extend in non-emergency LORazepam (ATIVAN) injection 1 mg Given 01/20/2018 10:48 PM WINDCHILL ADMINISTRATOR 1 mg 1 mg, Intravenous, ONCE, On 01/20/18 at 2242, For 1 dose, For IV PUSH: Dilute with equal volume of NS. For ordered IV doses 0.1-4 mg give IV Push. Administer each 2mg over 1-5 minutes. multivitamin w/minerals (THERA-VIT-M) Given 01/20/2018 11:34 PM WINDCHILL ADMINISTRATOR 1 tablet tablet 1 tablet 1 tablet, Oral, ONCE, On 01/20/18 at 2330, For 1 dose ondansetron (ZOFRAN) injection 4 mg Given 01/20/2018 10:48 PM WINDCHILL ADMINISTRATOR 4 mg 4 mg, Intravenous, ONCE, Administer over 2-5 Minutes, On 01/20/18 at 2242, For 1 dose, Irritant. For ordered IV doses 0.1-4 mg, give IV Push undiluted over 2-5 minutes. prochlorperazine (COMPAZINE) injection 5 mg Given 01/20/2018 11:35 PM WINDCHILL ADMINISTRATOR 5 mg 5 mg, Intravenous, ONCE, Administer over 1-2 Minutes, On 01/20/18 at 2330, For 1 dose, For ordered IV doses 0.1-10 mg, give IV Push undiluted. Each 5mg over 1 minute. vitamin B1 (THIAMINE) tablet 100 mg Given 01/20/2018 11:35 PM WINDCHILL ADMINISTRATOR 100 mg 100 mg, Oral, ONCE, On 01/20/18 at 2330, For 1 dose documented in this encounter Active and Recently Administered Medications Times are shown in WINDCHILL ADMINISTRATOR. Scheduled Medication Order 01/19/2018 01/20/2018 01/21/2018 0.9% [...] dose documented in this encounter Care Teams Harvest Worker Field Crop Relationship Specialty Start Date End Date Clinic, [facility] PCP - General 01/20/18 06/28/[address] [place] [id number] documented as of this encounter
--- OUTSIDE RECORDS SUMMARY | 2021-12-14 16:21 | XMS_ITS | Encounter Summary ---
:1980 Author Organization [place] Address [facility] [place] [address] Care Team Providers Name Role Phone Clinic, [facility] Primary Care Provide r Reason for Visit Reason Comments Alcohol Problem Palpitations Encounter Details Date Type Department Care Team Description 01/31/2018 - Emergency [facility] Shay Martinez MD Alcoholic intoxication without complicat ion (H); 02/01/2018 [facility] Emergency EMERGENCY Uncomplicat ed opioid dependence (H); Dept [facility] S/P emergency hysterectomy; [address] Slow transit constipation; [place], [place] Major depre ssive disorder, recurrent episode, moderate (H) [id number] [phone] (Wo rk) Social History Tobacco Use Types Packs/Day Years Used Date Smoking Tobacco: Every Day Cigarettes 0.1 10 Smokeless Tobacco: Never Comments: 5 cigarettes a day Alcohol Use Standard Drinks/Week Comments Yes 0 (1 standard drink = 0.6 oz pure alcoho l) binge drinks Sex Assigned at Date Recorded Female 01/14/2020 10:57 AM PILLOW AGENT documented as of this encounter Last Filed Vital Signs Vital Sign Reading Time Taken Comments Blood Pressure 145/72 01/31/2018 8:16 PM PILLOW AGENT Pulse - - Temperature 36.1 ??C (97 ??F) 01/31/2018 8:16 PM PILLOW AGENT Respiratory Rate 18 01/31/2018 8:16 PM PILLOW AGENT Oxygen Saturation 97% 01/31/2018 8:16 PM PILLOW AGENT Inhaled Oxygen Concentration - - Weight - [...] depends on the stress level. Last drink [employer] IMMUNOLOGY Patient slurred speech I feel intoxicated Appeared to be upset after Being asked if she uses recreational drugs. Requesting to go to detox Denies suicidal or homicidal ideation OW AGENT Shay Martinez MD - 01/31/2018 8:12 PM [...] Breast surgery section section, immediate hysterectomy, combined TRANSFER MAN surgery Orthopedic surgery Thoracic surgery Family History: [...] Department Course ECG (20:28:51): Rate 89 bpm. OR interval 170. QRS duration 94. QT/QTc 374/455. [...] her father. Patient will be transferred to [facility] via EMS. Discussed the case with [...] without complication (H) F10.920 Disposition: Transferred to [facility] via EMS. Discharge Medications: Modified buprenorphine 2 MG Subl sublingual tablet Commonly known as: SUBUTEX 2 mg, Sublingual, 2 TIMES DAILY What changed: ?? how much to take ?? how to take this ?? when to take this ?? additional instructions Ezra Chan 01/31/2018 [facility] EMERGENCY DEPARTMENT I, Ezra Chan, am serving as a scribe at 9:09 PM on 01/31/2018 to document services personally performed by Shay Martinez MD based on my observations and the provider's statements to me. Shay Martinez MD 01/31/18 2122 OW AGENT documented in this encounter Plan of Treatment Upcoming Encounters Date Type Specialty Care Team Description 12/20/2021 Office Visit Wound Care Luis Camara DPM [address] [place], [place] [address] (Reinaldo molina) 01/21/2022 PRE VISIT Gastroenterology Landon Warren, *-*HEATHER Barriga RECORDS*-* MD Luis Fernando [address] [facility] [address] [place], [place] [address] (Reinaldo molina) 01/21/2022 Office Visit Gastroenterology Juanis Levi [address] [place] [address] Luis Fernando Miles MD [address] [facility] [address] [place] [address] documented as of this encounter Procedures Procedure Name Priority Date/Time Associated Comments Diagnosis CBC WITH PLATELETS & STAT 01/31/2018 9:13 PM R esults for this DIFFERENTIAL PILLOW AGENT procedure are i n the results section. COMPREHENSIVE STAT 01/31/2018 9:13 PM Results for this METABOLIC PANEL PILLOW AGENT procedure ar e in the results section. ETHYL ALCOHOL LEVEL STAT 01/31/2018 9:13 PM Re sults for this PILLOW AGENT procedure are i n the results section. EKG 12-LEAD, TRACING STAT 01/31/2018 8:58 PM R esults for this ONLY PILLOW AGENT procedure are i n the results section. documented in this encounter Results (ABNORMAL) Comprehensive metabolic panel (01/31/2018 9:13 PM PILLOW AGENT) athologist Signature Sodium 141 133 - 144 01/31/2018 [facility] mmol/L 9:45 PM [facility] Potassium 3.5 3.4 - 5.3 01/31/2018 [facility] mmol/L 9:45 PM [facility] Chloride 107 94 - 109 01/31/2018 [facility] mmol/L 9:45 PM [facility] Carbon Dioxide 28 20 - 32 01/31/2018 [facility] mmol/L 9:45 PM [facility] Anion Gap 6 3 - 14 01/31/2018 [facility] mmol/L 9:45 PM [facility] Glucose 104 (H) 70 - 99 01/31/2018 [facility] mg/dL 9:45 PM [facility] Urea Nitrogen 10 7 - 30 01/31/2018 [facility] mg/dL 9:45 PM [facility] Creatinine 0.79 0.52 - 01/31/2018 [facility] 1.04 mg/dL 9:45 PM [facility] GFR Estimate 82 >60 01/31/2018 [facility] mL/min/1.7 9:[address] Comment: Non GFR Calc GFR Estimate If >90 >60 mL/min/1.7m2 01/31/2018 9:45 P M [facility] Comment: GFR Calc Calcium 8.5 8.5 - 10.1 01/31/2018 9:45 PM [facility] IDGES mg/dL [facility] Bilirubin Total 0.5 0.2 - 1.3 mg/dL 01/31/2018 9:45 PM [facility] Albumin 3.7 3.4 - 5.0 g/dL 01/31/2018 9:45 PM [facility] Protein Total 7.7 6.8 - 8.8 g/dL 01/31/2018 9:45 PM [facility] Alkaline Phosphatase 134 40 - 150 U/L 01/31/2018 9:45 PM [facility] ALT 205 (H) 0 - 50 U/L 01/31/2018 9:45 PM [facility] AST 271 (H) 0 - 45 U/L 01/31/2018 9:45 PM [facility] Specimen Anatomical Collection Method Collection Time Receive d Time (Source) Location / / Volume Laterality Blood specimen 01/31/2018 9:13 PM 018 9:14 (specimen) PILLOW AGENT PM [facility] Shay Martinez MD LAB - BLOOD ORDERABLES Performing Organization Address City/State/ZIP Code Phon e Number [place] [address] [address] [facility] [address] [phone] (ABNORMAL) CBC with platelets differential (01/31/2018 9:13 PM [facility]) [facility] Method Time Signature WBC 4.4 4.0 - 01/31/2018 [facility] 11.0 9:19 PM [facility] 10e9/L [facility] RBC Count 4.08 3.8 - 5.2 01/31/2018 [facility] 10e12/L 9:19 PM [facility] Hemoglobin 13.7 11.7 - 01/31/2018 [facility] 15.7 g/dL 9:19 PM [facility] Hematocrit 40.8 35.0 - 01/31/2018 [facility] 47.0 % 9:19 PM [facility] MCV 100 78 - 100 01/31/2018 [facility] fl 9:19 PM [facility] MCH 33.6 (H) 26.5 - 01/31/2018 [facility] 33.0 pg 9:19 PM [facility] MCHC 33.6 31.5 - 01/31/2018 [facility] 36.5 g/dL 9:19 PM [facility] RDW 12.0 10.0 - 01/31/2018 [facility] 15.0 % 9:19 PM [facility] Platelet Count 151 150 - 450 01/31/2018 [facility] 10e9/L 9:19 PM [facility] Diff Method Automated 01/31/2018 [facility] Method 9:19 PM [facility] % Neutrophils 35.4 % 01/31/2018 [facility] 9:19 PM [facility] % Lymphocytes 51.7 % 01/31/2018 [facility] 9:19 PM [facility] % Monocytes 9.7 % 01/31/2018 [facility] 9:19 PM [facility] % Eosinophils 2.5 % 01/31/2018 [facility] 9:19 PM [facility] % Basophils 0.5 % 01/31/2018 [facility] 9:19 PM [facility] % Immature 0.2 % 01/31/2018 [facility] Granulocytes 9:19 PM [facility] Nucleated RBCs 0 0 /100 01/31/2018 [facility] 9:19 PM [facility] Absolute 1.5 (L) 1.6 - 8.3 01/31/2018 [facility] Neutrophil 10e9/L 9:19 PM [facility] Absolute 2.3 0.8 - 5.3 01/31/2018 [facility] Lymphocytes 10e9/L 9:19 PM [facility] Absolute 0.4 0.0 - 1.3 01/31/2018 [facility] Monocytes 10e9/L 9:19 PM [facility] Absolute 0.1 0.0 - 0.7 01/31/2018 [facility] Eosinophils 10e9/L 9:19 PM [facility] Absolute 0.0 0.0 - 0.2 01/31/2018 [facility] Basophils 10e9/L 9:19 PM [facility] Abs Immature 0.0 0 - 0.4 01/31/2018 [facility] Granulocytes 10e9/L 9:19 PM [facility] Absolute 0.0 01/31/2018 [place] Nucleated RBC 9:19 PM [facility] Specimen Anatomical Collection Method Collection Time Receive d Time (Source) Location / / Volume Laterality Blood specimen 01/31/2018 9:13 PM 018 9:14 (specimen) PILLOW AGENT PM PILLOW AGENT Shay Martinez MD LAB - BLOOD ORDERABLES Performing Organization Address City/[facility]/ZIP [facility] Phon e Number M [facility] [address] [place], [place] [address] [facility] [address] [place], [place] [address], [facility] [phone] (ABNORMAL) Alcohol ethyl (01/31/2018 9:13 PM PILLOW AGENT) athologist Signature Ethanol g/dL 0.33 (HH) <0.01 g/dL 01/31/2018 [place] 9:48 PM [facility] Comment: Critical Value called to and read back Catarino SOSA ([place]) ON 01.31.18 AT 2142 BY AEF Specimen Anatomical Collection Method Collection Time Receive d Time (Source) Location / / Volume Laterality Blood specimen 01/31/2018 9:13 PM 018 9:14 (specimen) PILLOW AGENT PM PILLOW AGENT Shay Martinez MD LAB - BLOOD ORDERABLES Performing Organization Address City/[facility]/ZIP Code Phon e Number M [facility] [address] [place], [place] [address] [facility] [address] [place], [place] [address], [facility] [phone] EKG 12 lead (01/31/2018 8:58 PM PILLOW AGENT) [facility] gist Method Time Signature Interpretation ECG Click View RADIOLOGY Image link RESULTS to view waveform and result Specimen (Source) Anatomical Collection Method Collection Time Re ceived Time Location / / Volume Laterality 01/31/2018 8:58 PM PILLOW AGENT Mary Grace Molina MD ECG ORDERABLES Performing Organization Address City/[facility]/ZIP [facility] [place] Number RADIOLOGY RESULTS documented in [...] chloride BOLUS New Bag 01/31/2018 9:13 PM PILLOW AGENT 1,000 mLs 1000 mL/hr Intravenous, 1,000 mL, ONCE, at 1,000 mL/hr, Administer over 1 Hours, On 01/31/18 at 2056, For 1 dose LORazepam (ATIVAN) tablet 0.5 mg Given 01/31/2018 10:30 PM PILLOW AGENT 0.5 mg 0.5 mg, Oral, ONCE, On 01/31/18 at 2219, For 1 dose sodium chloride 0.9% infusion at 125 mL/hr, Intravenous, CONTINUOUS, A dminister after the boluses., Starting on 01/31/18 at 2056, Until 02/01/18 at 0203 documented in this encounter Active and Recently Administered Medications Times are shown in PILLOW AGENT. Scheduled Medication Order 01/30/2018 01/31/2018 02/01/2018 0.9% [...] 0203 documented in this encounter Care Teams Business Team Leader Relationship Specialty Start Date End Date Clinic, [facility] PCP - General 01/20/18 06/28/[address] [place] [id number] documented as of this encounter
--- OUTSIDE RECORDS SUMMARY | 2021-12-14 16:21 | XMS_ITS | Encounter Summary ---
:1980 Author Organization [facility] Address [address] [facility] [place] [address] Care Team Providers Name Role Phone Clinic, [facility] Primary Care Provide r Encounter [...] Date Recorded Female 01/14/2020 10:57 AM ASSEMBLER FLEXIBLE LEADS documented as of this encounter Plan of Treatment Upcoming Encounters Date Type Specialty Care Team Description 12/20/2021 Office Visit Wound Care Luis Camara, [place] [address] [place], [place] [phone] (Wo rk) 01/21/2022 PRE VISIT Gastroenterology Landon Warren, *-*INCOMIN G RECORDS*-* MD Luis Fernando [address] [facility] [address] [place], [place] [address] (Wo rk) 01/21/2022 Office Visit Gastroenterology Juanis Levi [address] [place] [phone] Luis Fernando Miles MD 6 [facility] [address] [place] [address] documented as of this encounter Visit Diagnoses Not on filedocumented in this encounter Care Teams Cashier Ticket Selling Relationship Specialty Start Date End Date Clinic, [facility] PCP - General 01/20/18 06/28/[address] [place] [address] documented as of this encounter
--- OUTSIDE RECORDS SUMMARY | 2021-12-14 16:21 | XMS_ITS | Encounter Summary ---
:1980 Author Organization [place] Address [facility] [place] [address] Care Team Providers Name Role Phone Clinic, Formerly [facility] Primary Care Provide r Reason for Visit Reason Comments Alcohol Problem Vomiting Encounter Details Date Type Department Care Team Description 02/24/2018 Emergency [facility] Celestino Knox A lcohol withdrawal syndrome with complication (H); [facility] Emergency Dep t Non-intractable vomiting with nausea, un specified vomiting type [address] [facility] [address] [address] [facility] [phone] [place], [place] [address] (Wo rk) Social History Tobacco Use Types Packs/Day Years Used Date Smoking Tobacco: Every Day Cigarettes 0.1 10 Smokeless Tobacco: Never Comments: 5 cigarettes a day Alcohol Use Standard Drinks/Week Comments Yes 0 (1 standard drink = 0.6 oz pure alcoho l) binge drinks Sex Assigned at Date Recorded Female 01/14/2020 10:57 AM LEAD SOFTWARE DEVELOPMENT ENGINEER documented as of this encounter Last Filed Vital Signs Vital Sign Reading Time Taken Comments Blood Pressure 130/81 02/24/2018 5:30 PM LEAD SOFTWARE DEVELOPMENT ENGINEER Pulse 86 02/24/2018 5:30 PM LEAD SOFTWARE DEVELOPMENT ENGINEER Temperature 36.6 ??C (97.8 ??F) 02/24/2018 1:15 PM LEAD SOFTWARE DEVELOPMENT ENGINEER Respiratory Rate 14 02/24/2018 1:15 PM LEAD SOFTWARE DEVELOPMENT ENGINEER Oxygen Saturation 95% 02/24/2018 5:30 PM LEAD SOFTWARE DEVELOPMENT ENGINEER Inhaled Oxygen Concentration - - Weight - - Height - - Body Mass Index - - documented in this encounter Discharge Instructions Discharge InstructionsCelestino Knox MD - 02/24/2018 4:37 PM LEAD SOFTWARE DEVELOPMENT ENGINEER Do not take the Librium while breast-feeding. [...] if there is anything that worries you. SOFTWARE DEVELOPMENT ENGINEER AttachmentsThe following attachments cannot be sent through Care Everywhere. ALCOHOL WITHDRAWAL (HEBREW)documented in this encounter Medications at Time of [...] 2 days. Also reports feeling some palpitations. SOFTWARE DEVELOPMENT ENGINEER Celestino Knox MD - 02/24/2018 1:03 PM [...] hysterectomy - combined Orthopedic surgery Thoracic surgery SURVEYOR INSTRUMENT ASSISTANT surgery Family History: Depression Psychotic disorder Thyroid [...] sinus rhythm Normal ECG Rate 90 bpm. OH interval 176. QRS duration 96. QT/QTc 392/479. [...] observations and the provider's statements to me. [facility] EMERGENCY DEPARTMENT Celestino Knox MD 02/24/18 1730 SOFTWARE DEVELOPMENT ENGINEER documented in this encounter Plan of Treatment Upcoming Encounters Date Type Specialty Care Team Description 12/20/2021 Office Visit Wound Care Luis Camara DPM [address] [place] [address] (Reinaldo molina) 01/21/2022 PRE VISIT Gastroenterology Landon Warren, *-*HEATHER G RECORDS*-* MD Luis Fernando [address] [facility] [address] [place], [place] [address] (Reinaldo molina) 01/21/2022 Office Visit Gastroenterology Juanis Levi [address] [place] [phone] Luis Fernando Miles MD [address] [facility] [address] [place] [address] documented as of this encounter Procedures Procedure Name Priority Date/Time Associated Comments Diagnosis BLOOD GAS VENOUS WITH STAT 02/24/2018 3:59 PM Results for this OXYHEMOGLOBIN LEAD SOFTWARE DEVELOPMENT ENGINEER procedure are in the results section. HCG QUALITATIVE Routine 02/24/2018 3:21 PM Result s for this LEAD SOFTWARE DEVELOPMENT ENGINEER procedure are i n the results section. INR STAT 02/24/2018 3:20 PM Results f or this LEAD SOFTWARE DEVELOPMENT ENGINEER procedure are i n the results section. MAGNESIUM STAT 02/24/2018 3:20 PM Results f or this LEAD SOFTWARE DEVELOPMENT ENGINEER procedure are i n the results section. KETONE STAT 02/24/2018 3:20 PM Results f or this BETA-HYDROXYBUTYRATE LEAD SOFTWARE DEVELOPMENT ENGINEER procedu re are in QUANTITATIVE, RAPID the resu lts section. COMPREHENSIVE STAT 02/24/2018 3:20 PM Results for this METABOLIC PANEL LEAD SOFTWARE DEVELOPMENT ENGINEER procedure ar e in the results section. ETHYL ALCOHOL LEVEL STAT 02/24/2018 3:20 PM Re sults for this LEAD SOFTWARE DEVELOPMENT ENGINEER procedure are i n the results section. CBC WITH PLATELETS STAT 02/24/2018 3:20 PM Res ults for this LEAD SOFTWARE DEVELOPMENT ENGINEER procedure are i n the results section. EKG 12-LEAD, TRACING STAT 02/24/2018 1:32 PM R esults for this ONLY LEAD SOFTWARE DEVELOPMENT ENGINEER procedure are i n the results section. documented in this encounter Results (ABNORMAL) Blood gas venous and oxyhgb (02/24/2018 3:59 PM LEAD SOFTWARE DEVELOPMENT ENGINEER) [facility] gist Method Time Signature Ph Venous 7.43 7.32 - 02/24/2018 [facility] 7.43 pH 4:11 PM [facility] PCO2 Venous 40 40 - 50 02/24/2018 [facility] mm Hg 4:11 PM [facility] PO2 Venous 52 (H) 25 - 47 02/24/2018 [facility] mm Hg 4:11 PM [facility] Bicarbonate 26 21 - 28 02/24/2018 [facility] Venous mmol/L 4:11 PM [facility] FIO2 Room air 02/24/2018 [facility] 3:59 PM [facility] Oxyhemoglobin 80 % 02/24/2018 [facility] Venous 4:11 PM [facility] Base Excess 1.9 mmol/L 02/24/2018 [facility] Venous 4:11 PM [facility] Comment: Reference range: -7.7 to 1.9 Specimen Anatomical Collection Method Collection Time Receive d Time (Source) Location / / Volume Laterality 02/24/2018 3:59 PM 9 4:00 LEAD SOFTWARE DEVELOPMENT ENGINEER PM LEAD SOFTWARE DEVELOPMENT ENGINEER Celestino Knox MD LAB - BLOOD ORDERABLES Performing Organization Address City/[facility] Phon e Number M [facility] [address] [place], [place] [address] [place] [address] [address] [place], [place] [address], [facility] [phone] HCG qualitative (02/24/2018 3:21 PM LEAD SOFTWARE DEVELOPMENT ENGINEER) Patholo gist Method Time Signature HCG Qualitative Negative NEG^Negati 02/24/2018 [facility] Serum ve 4:02 PM [facility] Comment: This test is for screening purposes. ??R esults should be interpreted along with the clinical picture. ??Confirmation te sting is available if warranted by ordering [id number], HCG Quantitative Pregna ncy. Specimen Anatomical Collection Method Collection Time Receive d Time (Source) Location / / Volume Laterality Blood specimen 02/24/2018 3:21 PM 019 3:28 (specimen) LEAD SOFTWARE DEVELOPMENT ENGINEER PM LEAD SOFTWARE DEVELOPMENT ENGINEER Celestino Knox MD LAB - BLOOD ORDERABLES Performing Organization Address City/[facility]/ZIP [facility] Phon e Number M [facility] [address] [place], [place] [address] [facility] [address] [place], [place] [address], [facility] [phone] Ketone Beta-Hydroxybutyrate Quantitative (02/24/2018 3:20 PM LEAD SOFTWARE DEVELOPMENT ENGINEER) P athologist Signature Ketone 0.1 0.0 - 0.6 02/24/2018 [facility] Quantitative mmol/L 3:37 PM [facility] Specimen Anatomical Collection Method Collection Time Receive d Time (Source) Location / / Volume Laterality Blood specimen 02/24/2018 3:20 PM 019 3:21 (specimen) LEAD SOFTWARE DEVELOPMENT ENGINEER PM LEAD SOFTWARE DEVELOPMENT ENGINEER Celestino Knox MD LAB - BLOOD ORDERABLES Performing Organization Address City/State/ZIP Code Phon e Rk Cowan [facility] [address] [place], [place] [address] [facility] [address] [place], [place] [address], [facility] [phone] Magnesium (02/24/2018 3:20 PM LEAD SOFTWARE DEVELOPMENT ENGINEER) athologist Signature Magnesium 1.8 1.6 - 2.3 02/24/2018 [facility] mg/dL 3:52 PM [facility] Specimen Anatomical Collection Method Collection Time Receive d Time (Source) Location / / Volume Laterality Blood specimen 02/24/2018 3:20 PM 019 3:21 (specimen) LEAD SOFTWARE DEVELOPMENT ENGINEER PM LEAD SOFTWARE DEVELOPMENT ENGINEER Celestino Knox MD LAB - BLOOD ORDERABLES Performing Organization Address City/State/ZIP Code Phon e Rk [place] [facility] [address] [place], [place] [address] [facility] [address] [place], [place] [address], [facility] [phone] (ABNORMAL) Alcohol level blood (02/24/2018 3:20 PM LEAD SOFTWARE DEVELOPMENT ENGINEER) athologist Signature Ethanol g/dL 0.06 (H) <0.01 g/dL 02/24/2018 [facility] 3:52 PM [facility] Specimen Anatomical Collection Method Collection Time Receive d Time (Source) Location / / Volume Laterality Blood specimen 02/24/2018 3:20 PM 019 3:21 (specimen) LEAD SOFTWARE DEVELOPMENT ENGINEER PM LEAD SOFTWARE DEVELOPMENT ENGINEER Celestino Knox MD LAB - BLOOD ORDERABLES Performing Organization Address City/State/ZIP Code Phon e Rk [place] [facility] [address] [place], [place] [address] [facility] [address] [place], [place] [address], [facility] [phone] INR (02/24/2018 3:20 PM LEAD SOFTWARE DEVELOPMENT ENGINEER) athologist Signature INR 1.00 0.86 - 1.14 02/24/2018 [facility] 3:46 PM [facility] Specimen Anatomical Collection Method Collection Time Receive d Time (Source) Location / / Volume Laterality Blood specimen 02/24/2018 3:20 PM 019 3:21 (specimen) LEAD SOFTWARE DEVELOPMENT ENGINEER PM [facility] Celestino Knox MD LAB - BLOOD ORDERABLES Performing Organization Address City/State/ZIP Code Phon e Number M [place] [address] [address] [place], [place] [address] [facility] [address] [phone] (ABNORMAL) Comprehensive metabolic panel (02/24/2018 3:20 PM LEAD SOFTWARE DEVELOPMENT ENGINEER) athologist Signature Sodium 139 133 - 144 02/24/2018 [facility] mmol/L 3:41 PM [facility] Potassium 3.3 (L) 3.4 - 5.3 02/24/2018 [facility] mmol/L 3:41 PM [facility] Chloride 103 94 - 109 02/24/2018 [facility] mmol/L 3:41 PM [facility] Carbon Dioxide 27 20 - 32 02/24/2018 [facility] mmol/L 3:51 PM [facility] Anion Gap 9 3 - 14 02/24/2018 [facility] mmol/L 3:51 PM [facility] Glucose 114 (H) 70 - 99 02/24/2018 [facility] mg/dL 3:51 PM [facility] Urea Nitrogen 6 (L) 7 - 30 02/24/2018 [facility] mg/dL 3:51 PM [facility] Creatinine 0.63 0.52 - 02/24/2018 [facility] 1.04 mg/dL 3:51 PM [facility] GFR Estimate >90 >60 02/24/2018 [facility] mL/min/{1. 3:51 PM [facility] 73_m2} [facility] Comment: Non GFR Calc Starting 02/03/2018, serum creatinine ba sed estimated GFR (eGFR) will be calculated using the Chronic Kidney Dise ase Epidemiology Collaboration (CKD-EPI) equation. GFR Estimate If >90 >60 mL/min/{1.73_m2} 02/24/2018 3: 51 PM [facility] Comment: GFR Calc Starting 02/03/2018, serum creatinine ba sed estimated GFR (eGFR) will be calculated using the Chronic Kidney Dise ase Epidemiology Collaboration (CKD-EPI) equation. Calcium 8.4 (L) 8.5 - 10.1 02/24/2018 3:51 PM [facility] mg/dL [facility] Bilirubin Total 0.8 0.2 - 1.3 mg/dL 02/24/2018 3:52 PM [facility] Albumin 3.6 3.4 - 5.0 g/dL 02/24/2018 3:52 PM [facility] Protein Total 7.8 6.8 - 8.8 g/dL 02/24/2018 3:52 PM [facility] Alkaline Phosphatase 129 40 - 150 U/L 02/24/2018 3:52 PM [facility] ALT 241 (H) 0 - 50 U/L 02/24/2018 3:52 PM [facility] AST 326 (H) 0 - 45 U/L 02/24/2018 3:52 PM [facility] Specimen Anatomical Collection Method Collection Time Receive d Time (Source) Location / / Volume Laterality Blood specimen 02/24/2018 3:20 PM 019 3:21 (specimen) LEAD SOFTWARE DEVELOPMENT ENGINEER PM [facility] Celestino Knox MD LAB - BLOOD ORDERABLES Performing Organization Address City/State/ZIP Code Phon e Number M [place] [address] [phone] (ABNORMAL) CBC (platelets, no diff) (02/24/2018 3:20 PM LEAD SOFTWARE DEVELOPMENT ENGINEER) athologist Signature WBC 3.9 (L) 4.0 - 11.0 02/24/2018 [facility] 10e9/L 3:33 PM [facility] RBC Count 4.24 3.8 - 5.2 02/24/2018 [facility] 10e12/L 3:33 PM [facility] Hemoglobin 13.9 11.7 - 02/24/2018 [facility] 15.7 g/dL 3:33 PM [facility] Hematocrit 40.9 35.0 - 02/24/2018 [facility] 47.0 % 3:33 PM [facility] MCV 97 78 - 100 02/24/2018 [facility] fl 3:33 PM [facility] MCH 32.8 26.5 - 02/24/2018 [facility] 33.0 pg 3:33 PM [facility] MCHC 34.0 31.5 - 02/24/2018 [facility] 36.5 g/dL 3:33 PM [facility] RDW 11.8 10.0 - 02/24/2018 [facility] 15.0 % 3:33 PM [facility] Platelet Count 135 (L) 150 - 450 02/24/2018 [facility] 10e9/L 3:33 PM [facility] Specimen Anatomical Collection Method Collection Time Receive d Time (Source) Location / / Volume Laterality Blood specimen 02/24/2018 3:20 PM 019 3:21 (specimen) LEAD SOFTWARE DEVELOPMENT ENGINEER PM LEAD SOFTWARE DEVELOPMENT ENGINEER Celestino Knox MD LAB - BLOOD ORDERABLES Performing Organization Address City/State/ZIP Code Phon e Number [place] [address] [address] [place] [address] [place] [address] [phone] EKG 12 lead (02/24/2018 1:32 PM LEAD SOFTWARE DEVELOPMENT ENGINEER) [facility] gist Method Time Signature Interpretation ECG Click View RADIOLOGY Image link RESULTS to view waveform and result Specimen (Source) Anatomical Collection Method Collection Time Re ceived Time Location / / Volume Laterality 02/24/2018 1:32 PM LEAD SOFTWARE DEVELOPMENT ENGINEER Christopher Carrion MD ECG ORDERABLES Performing Organization Address City/State/ZIP [facility] Phon e Number RADIOLOGY RESULTS documented in this encounter Visit Diagnoses Diagnosis Alcohol withdrawal syndrome with complic ation (H) Non-intractable vomiting with nausea, un specified vomiting type documented in this encounter Administered Medications Inactive Administered Medications - up to 3 most recent administrations Medication Order MAR Action Action Date Dose Rate Site 0.9% sodium chloride BOLUS New Bag 02/24/2018 3:27 PM LEAD SOFTWARE DEVELOPMENT ENGINEER 1,000 mLs 1000 mL/hr Intravenous, 1,000 mL, ONCE, at 1,000 mL/hr, Administer over 1 Hours, On Fri02/24/18 at 1506, For 1 dose diazepam (VALIUM) injection 5 mg Given 02/24/2018 3:28 PM LEAD SOFTWARE DEVELOPMENT ENGINEER 5 mg 5 mg, Intravenous, Administer over 1-4 Minutes, ONCE, On Fri02/24/18 at 1506, For 1 dose, Vesicant. For ordered doses up to 20 mg, give IV Push undiluted. Administer each 5mg over 1 minute. See IV push link for additional instructions. ondansetron (ZOFRAN) injection 8 mg Given 02/24/2018 3:28 PM LEAD SOFTWARE DEVELOPMENT ENGINEER 8 mg 8 mg, Intravenous, ONCE, Administer over 2-5 Minutes, On Fri02/24/18 at 1506, For 1 dose, Irritant. For ordered IV doses 0.1-4 mg, give IV Push undiluted over 2-5 minutes. potassium chloride ER (K-DUR/KLOR-CON M) CR Given 02/24/2018 4:06 PM LEAD SOFTWARE DEVELOPMENT ENGINEER 40 mEq tablet 40 mEq 40 mEq, Oral, ONCE, On Fri02/24/18 at 1550, For 1 dose, DO NOT CRUSH documented in this encounter Active and Recently Administered Medications Times are shown in LEAD SOFTWARE DEVELOPMENT ENGINEER. Scheduled Medication Order 02/22/2018 02/23/2018 02/24/2018 0.9% [...] CRUSH documented in this encounter Care Teams New Media Strategist Relationship Specialty Start Date End Date Clinic, [facility] PCP - General 01/20/18 06/28/[address] [place] [address] documented as of this encounter
--- OUTSIDE RECORDS SUMMARY | 2021-12-14 16:21 | XMS_ITS | Encounter Summary ---
:1980 Author Organization [place] Address [address] [place] [address] Care Team Providers Name Role Phone Clinic, [facility] Primary Care Provide r Encounter Details [...] at Date Recorded Female 01/14/2020 10:57 AM B2B SALES MANAGER documented as of this encounter Plan of Treatment Upcoming Encounters Date Type Specialty Care Team Description 12/20/2021 Office Visit Wound Care Luis Camara, [place] [address] [place], [place] [address] (Wo rk) 01/21/2022 PRE VISIT Gastroenterology Landon Warren, *-*INCOMIN G RECORDS*-* MD Luis Fernando [address] [place] [address] [address] [place], [place] [address] (Wo rk) 01/21/2022 Office Visit Gastroenterology Juanis Levi [address] [place] [phone] Luis Fernando Miles MD [address] [facility] [address] [place] [address] documented as of this encounter Visit Diagnoses Not on filedocumented in this encounter Additional Health Concerns Assessment Noted Time PHQ-9 Depression Total Score: 10 07/08/2018 1:27 PM CD T documented as of this encounter Care Teams Vp Public Relations Relationship Specialty Start Date End Date Clinic, [facility] PCP - General 01/20/18 06/28/[address] [place] [phone] documented as of this encounter
--- OUTSIDE RECORDS SUMMARY | 2021-12-14 16:21 | XMS_ITS | Encounter Summary ---
:1980 Author Organization [place] Address [address] [place] [address] Care Team Providers Name Role Phone Clinic, [facility] Primary Care Provide r Tatyana Haas BORDER MACHINE OPERATOR HUMAN SERVICES SUPERVISOR Unavailable Stephani Pina BORDER MACHINE OPERATOR HUMAN SERVICES SUPERVISOR Unavailable [phone] Reason for Visit Reason Onset Date Comments Lodging Plus 07/04/2018 Encounter Details Date Type Department Care Team Description 07/04/[address] [facility] Generic, Behavioral Lod ging [facility] Behavior[facility] In abigail Rivera MD [address] [place] [phone] Social History Tobacco Use Types Packs/Day Years Used Date Smoking Tobacco: Every Day Cigarettes 0.1 10 Smokeless Tobacco: Never Comments: 5 cigarettes a day Alcohol Use Standard Drinks/Week Comments Yes 0 (1 standard drink = 0.6 oz pure alcoho l) binge drinks Sex Assigned at Date Recorded Female 01/14/2020 10:57 AM BUSINESS ADMINISTRATION PROGRAM CHAIR COVID-19 Exposure Response Date Recorded In the [...] the telephone note below completed by the assistant media planner for details on this patient. Telephone Encounter - Scout Jarvis LADC - 07/08/2018 1:00 PM CDT Attn: Central Intake ?? This patient was admitted to the LP program on 07/08/2018. Please send the [facility] referral paperwork to [facility] to activate the authorization for the LP program. Telephone Encounter - Marlena Trujillo LADC - 07/06/2018 1:32 PM CDT SBAR Name: Stephani King Date of : 1980 Age: [age] year old Gender: female Referral Source: Self Referral GIOVANNA: N/A Insurance: [facility]: [facility] Precipitating Event: Treatment due to [...] child protection involvement, Unemployed and Stable finances [place] Suicide Risk Status: Past month: 0. - [...] upon L+ admit so Intake can get [facility] auth. fb Telephone Encounter - Mary Ellen Larsen LICSW - 07/06/2018 10:11 AM CDT LP SCREEN TELEPHONE NOTE Stephani King paperwork was reviewed by JANETT York and the patient was deemed ELIGIBLE for the LP program. Medical: The patient is medically stable and did not appear to need a medical screening with the LP RN at this time. Insurance: [facility] MA/PMAP - The admitting counselor NEEDS to notify [facility] of the patient's admission to treatment on the day/evening of the admission with a routed telephone note. After being informed of the admission date for treatment [facility] will need to fill out the [facility] referral forms with the patient's start date and then fax the [facility] referral forms to [facility] to activate the authorization for treatment. [...] number for the patient is: [phone] @ [phone] Mary Ellen Franklin LICSW 07/06/2018 Telephone Encounter - Abrahan Waldrop - 07/04/2018 6:57 PM CDT S: [place] ED MD called at [phone] [...] A: Voluntary. R: calliope player paged at 1918 to review for placement on 3A/[facility]. calliope player approved admission at 1923.Unit notified at 2000. ED notified at 2007. documented in this encounter Plan of Treatment Upcoming Encounters Date Type Specialty Care Team Description 12/20/2021 Office Visit Wound Care Luis Camara DPM [address] [place], [place] [phone] (Wo rk) 01/21/2022 PRE VISIT Gastroenterology Landon Warren, *-*HEATHER G RECORDS*-* MD Luis Fernando [address] [place] [phone] (Wo rk) 01/21/2022 Office Visit Gastroenterology Juanis Levi [address] [place] [phone] Luis Fernando Miles MD [address] [place] [phone] documented as of this encounter Visit Diagnoses Diagnosis Alcohol abuse, continuous - Primary Nondependent alcohol abuse, continuous d rinking behavior documented in this encounter Care Teams Drug Coordinator Relationship Specialty Start Date End Date Clinic, [facility] PCP - General 01/20/18 06/28/21 [facility] [place] [address] Tatyana Haas APRN HUMAN SERVICES SUPERVISOR Assigned PCP 08/02/18 01/29/20 [facility] [address] [facility] [address] [place] [address] Stephani Pina APRN HUMAN SERVICES SUPERVISOR Assigned PCP 01/30/20 12/30/[address] [place] [address] [address] [place] [address] documented as of this encounter
--- OUTSIDE RECORDS SUMMARY | 2021-12-14 16:21 | XMS_ITS | Encounter Summary ---
:1980 Author Organization [place] Address [address] [place] [address] Care Team Providers Name Role Phone Luis Fernando Magana Primary Care Provider Reason for Visit Reason Onset Date Comments Medication Request 04/29/2017 call in subutex Encounter Details Date Type Department Care Team Description 04/29/2017 Telephone [facility] Edgar Alfredo, [facility] ication Request Clinic Ashly VÁSQUEZ (call in subutex) [address] [place] [address] [place] [phone] (Wo rk) Social History Tobacco Use Types Packs/Day Years Used Date Smoking Tobacco: Every Day Cigarettes 0.1 10 Smokeless Tobacco: Never Comments: 5 cigarettes a day Alcohol Use Standard Drinks/Week Comments Yes 0 (1 standard drink = 0.6 oz pure Stoppe d after found out alcohol) Sex Assigned at Date Recorded Female 01/14/2020 10:57 AM LOG YARD DERRICK OPERATOR documented as of this encounter Miscellaneous Notes Telephone Encounter - Santosh Pyle RN - 04/29/2017 4:02 PM CDT Rx called into Pt's pharmacy Santosh Pyle RN Telephone Encounter - Vickie Espinal - 04/29/2017 3:56 PM CDT Reason for Call: Medication or medication refill: Do you use a [facility]? Name of the pharmacy and phone number for the current request: [facility] in [place] [phone] Name of the medication requested: subutex Other request: Please call in subutex that was ordered 04/24/[address] Alfredo. Per patient and pharmacy it was never called in. Thanks. Can we leave a detailed message on this number? YES Phone number patient can be reached at: Home number on file [phone] (home) Best Time: anytime Call taken on 04/29/2017 at 3:56 PM by Vickie Espinal documented in this encounter Plan of Treatment Upcoming Encounters Date Type Specialty Care Team Description 12/20/2021 Office Visit Wound Care Luis Camara DPM [address] [place], [place] [phone] (Wo rk) 01/21/2022 PRE VISIT Gastroenterology Landon Warren, *-*WANDAIN G RECORDS*-* MD Luis Fernando [address] [place] [phone] (Wo rk) 01/21/2022 Office Visit Gastroenterology Juanis Levi [address] [place] [phone] Luis Fernando Miles MD [address] [place] [phone] documented as of this encounter Visit Diagnoses Not on filedocumented in this encounter Care Teams Medical Consultant Relationship Specialty Start Date End Date Luis Fernando Magana PCP - General Family Practice 12/07/16 01/19/[address] [address] documented as of this encounter
--- OUTSIDE RECORDS SUMMARY | 2021-12-14 16:22 | XMS_ITS | Encounter Summary ---
:1980 Author Organization [place] Address [address] [place] [address] Care Team Providers Name Role Phone Luis Fernando Magana Primary Care Provider Reason for Visit Reason Onset Date Comments Refill Request 01/02/2017 Subutex Encounter Details Date Type Department Care Team Description 01/02/2017 Refill [facility] Edgar Alfredo, Ref ill Request (Subutex) Clinic [place] [address] [place] [address] [place] [phone] (Wo rk) Social History Tobacco Use Types Packs/Day Years Used Date Smoking Tobacco: Every Day Cigarettes 0.1 10 Smokeless Tobacco: Never Comments: 5 cigarettes a day Alcohol Use Standard Drinks/Week Comments Yes 0 (1 standard drink = 0.6 oz pure Stoppe d after found out alcohol) Sex Assigned at Date Recorded Female 01/14/2020 10:57 AM TECHNOLOGY STRATEGIST documented as of this encounter Miscellaneous Notes Telephone Encounter - Edgar Alfredo MD - 01/03/2017 12:44 PM CST Please call in Subutex ordered NOLOGY STRATEGIST Telephone Encounter - Laura Fried RN - 01/03/2017 8:48 AM CST Controlled Substance Refill Request for Subutex Last refill: 12/05/16, 120 tablets, 24 day supply per [facility] Last clinic visit: 10/10/16 Next appt: 01/23/17 Controlled substance agreement on file: No. Documentation in problem list reviewed: Yes Processing: Fax Rx to pt's pharmacy RX monitoring program ([place]) reviewed: MOBILE UI/UX DESIGNER reviewed- Pt received 2 prescriptions for oxycodone frommindy Leyva [facility] profile: [email or web address] Thank you! Laura Fried RN NOLOGY STRATEGIST Telephone Encounter - Dora Merchant - 01/02/2017 1:44 PM CST Reason for Call: Other prescription Detailed comments: Pt states that she discharged from the hospital on 12/27/16, and would like a refill on Subutex Phone Number Patient can be reached at: Home number on file [phone] (home) Best Time: Anytime Can we leave a detailed message on this number? YES Call taken on 01/02/2017 at 1:44 PM by Dora Merchant NOLOGY STRATEGIST documented in this encounter Plan of Treatment Upcoming Encounters Date Type Specialty Care Team Description 12/20/2021 Office Visit Wound Care Luis Camara DPM [address] [place] [address] (Wo rk) 01/21/2022 PRE VISIT Gastroenterology Landon Warren, *-*WANDAIN G RECORDS*-* MD Luis Fernando [address] [address] (Wo rk) 01/21/2022 Office Visit Gastroenterology Juanis Levi [address] [place] [phone] Luis Fernando Miles MD [address] [facility] [address] [place] [address] documented as of this encounter Visit Diagnoses Diagnosis Uncomplicated opioid dependence (H) Opioid type dependence, unspecified documented in this encounter Care Teams Storage And Backup Administrator Relationship Specialty Start Date End Date Luis Fernando Magana PCP - General Family Practice 12/07/16 01/19/[address] [address] documented as of this encounter
--- OUTSIDE RECORDS SUMMARY | 2021-12-14 16:22 | XMS_ITS | Encounter Summary ---
:1980 Author Organization [place] Address [address] [facility] [place] [address] Care Team Providers Name Role Phone Luis Fernando Magana Primary Care Provider Reason for Visit Reason Onset Date Comments Erroneous encounter-disregard 01/23/2017 Encounter Details Date Type Department Care Team Description 01/23/2017 Office Visit [facility] Edgar Alfredo ERRONEOUS Clinic Ashly Gauthier MD ENCOUNTER--DISREGARD [address] [place] (Primary Dx) [address] [place] [phone] Social History Tobacco Use Types Packs/Day Years Used Date Smoking Tobacco: Every Day Cigarettes 0.1 10 Smokeless Tobacco: Never Comments: 5 cigarettes a day Alcohol Use Standard Drinks/Week Comments Yes 0 (1 standard drink = 0.6 oz pure Stoppe d after found out alcohol) Sex Assigned at Date Recorded Female 01/14/2020 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 Please disregard. K TRAILER MECHANIC documented in this encounter Plan of Treatment Upcoming Encounters Date Type Specialty Care Team Description 12/20/2021 Office Visit Wound Care Luis Camara, [place] [address] [place], [place] [phone] (Wo rk) 01/21/2022 PRE VISIT Gastroenterology Landon Warren, *-*WANDAIN G RECORDS*-* MD Luis Fernando [address] [phone] (Wo rk) 01/21/2022 Office Visit Gastroenterology Juanis Levi [address] [place] [phone] Luis Fernando Miles MD [address] [phone] documented as of this encounter Visit Diagnoses Diagnosis ERRONEOUS ENCOUNTER--DISREGARD - Primary documented in this encounter Care Teams Student Nurse Relationship Specialty Start Date End Date Luis Fernando Magana PCP - General Family Practice 12/07/16 01/19/[address] [address] documented as of this encounter
--- OUTSIDE RECORDS SUMMARY | 2021-12-14 16:22 | XMS_ITS | Encounter Summary ---
:1980 Author Organization [place] Address [address] [facility] [place] [address] Care Team Providers Name Role Phone Luis Fernando Magana Primary Care Provider Reason for Visit Reason Onset Date Comments Erroneous encounter-disregard 04/02/2017 Encounter Details Date Type Department Care Team Description 03/31/[address] [facility] Edgar Alfredo ERRONEOUS Clinic Ashly Gauthier MD ENCOUNTER--DISREGARD [address] [place] (Primary Dx) [address] [place] [phone] Social History Tobacco Use Types Packs/Day Years Used Date Smoking Tobacco: Every Day Cigarettes 0.1 10 Smokeless Tobacco: Never Comments: 5 cigarettes a day Alcohol Use Standard Drinks/Week Comments Yes 0 (1 standard drink = 0.6 oz pure Stoppe d after found out alcohol) Sex Assigned at Date Recorded Female 01/14/2020 10:57 AM WAREHOUSE DIRECTOR documented as of this encounter Progress Notes Edgar Alfredo MD - 03/31/2017 2:45 PM CST This encounter was opened in error. Please disregard. HOUSE DIRECTOR documented in this encounter Plan of Treatment Upcoming Encounters Date Type Specialty Care Team Description 12/20/2021 Office Visit Wound Care Luis Camara, [place] [address] [place], [place] [address]425 (Wo rk) 01/21/2022 PRE VISIT Gastroenterology Landon Warren, *-*WANDAIN G RECORDS*-* MD Luis Fernando [address] [phone] (Wo rk) 01/21/2022 Office Visit Gastroenterology Juanis Levi [address] [place] [phone] Luis Fernando Miles MD [address] [phone] documented as of this encounter Visit Diagnoses Diagnosis ERRONEOUS ENCOUNTER--DISREGARD - Primary documented in this encounter Care Teams Proposition Player Relationship Specialty Start Date End Date Luis Fernando Magana PCP - General Family Practice 12/07/16 01/19/[address] [place] [address] [address] documented as of this encounter
--- OUTSIDE RECORDS SUMMARY | 2021-12-14 16:22 | XMS_ITS | Encounter Summary ---
:1980 Author Organization [place] Address [address] [facility] [place] [address] Care Team Providers Name Role Phone Luis Fernando Magana Primary Care Provider Reason for Visit Reason Comments RECHECK Encounter Details Date Type Department Care Team Description 01/16/2017 Office Visit [facility] Mecca Cyr S/P e mergency hysterectomy (Primary Dx); [facility] MD Christopher Slow transit constipation; [place] [address] RONNIE Wound infection [address] [place] [facility] [place], [place] [facility] [address] [address] [address] [place], [place] (Work) [address] [phone] Social History Tobacco Use Types Packs/Day Years Used Date Smoking Tobacco: Every Day Cigarettes 0.1 10 Smokeless Tobacco: Never Comments: 5 cigarettes a day Alcohol Use Standard Drinks/Week Comments Yes 0 (1 standard drink = 0.6 oz pure Stoppe d after found out alcohol) Sex Assigned at Date Recorded Female 01/14/2020 10:57 AM LAMP CLEANER documented as of this encounter Last Filed Vital Signs Vital Sign Reading Time Taken Comments Blood Pressure 119/78 01/16/2017 1:31 PM LAMP CLEANER Pulse 87 01/16/2017 1:31 PM LAMP CLEANER Temperature - - Respiratory Rate - - [...] at that time Mecca Cyr MD FACOG CLEANER documented in this encounter Nursing Notes Antonella Castro CMA - 01/16/2017 1:30 PM CST Chief Complaint Patient presents with ??? RECHECK CLEANER documented in this encounter Plan of Treatment Upcoming Encounters Date Type Specialty Care Team Description 12/20/2021 Office Visit Wound Care Luis Camara DPM [address] [place] [address] (Wo rk) 01/21/2022 PRE VISIT Gastroenterology Landon Warren, *-*INCOMIN G RECORDS*-* MD Luis Fernando [address] [facility] [address] [place], [place] [address] (Wo rk) 01/21/2022 Office Visit Gastroenterology Juanis Levi [address] [place] [phone] Luis Fernando Miles MD [address] [facility] [address] [place], [place] [address] documented as of this encounter Visit Diagnoses Diagnosis S/P emergency hysterectomy - Pr imary 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
--- OUTSIDE RECORDS SUMMARY | 2021-12-14 16:22 | XMS_ITS | Encounter Summary ---
:1980 Author Organization [place] Address [address] [facility] [place] [address] Care Team Providers Name Role Phone Luis Fernando Magana Primary Care Provider Reason for Visit Reason Onset Date Comments Forms 03/12/2017 extended leave Encounter Details Date Type Department Care Team Description 03/12/2017 Telephone [facility] Women's Nurse, [facility] Wh[facility] Forms (extended leave) Clinic [place] [address] [facility] Professional Bldg [facility] [address] [place], [place] [phone] Social History Tobacco Use Types Packs/Day Years Used Date Smoking Tobacco: Every Day Cigarettes 0.1 10 Smokeless Tobacco: Never Comments: 5 cigarettes a day Alcohol Use Standard Drinks/Week Comments Yes 0 (1 standard drink = 0.6 oz pure Stoppe d after found out alcohol) Sex Assigned at Date Recorded Female 01/14/2020 10:57 AM GARAGE ATTENDANT documented as of this encounter Miscellaneous Notes Telephone Encounter - Gregoria Villanueva RN - 03/13/2017 3:[address] Cyr approved 3 more months of assistance for Stephani. Form was signed and faxed back to [facility].Scanned into chart. Copy emailed to patient. GE ATTENDANT Telephone Encounter - Gregoria Villanueva RN - 03/12/2017 12:41 PM CST Spoke with Stephani who is a couple months and had a premature baby that was in NICU here andthen transferred to [facility] to be closer to home. Her baby is home now and she is not ready to go back to work. She is getting assistance with housing, food, and monthly funding. [facility] MD to sign a form stating that the patient had a complicated post- period in order for these services to be continued. Patient will email them to clinic for review. GE ATTENDANT documented in this encounter Plan of Treatment Upcoming Encounters Date Type Specialty Care Team Description 12/20/2021 Office Visit Wound Care Luis Camara, [place] [address] [place] [address] (Wo rk) 01/21/2022 PRE VISIT Gastroenterology Landon Warren, *-*HEATHER G RECORDS*-* MD Luis Fernando [address] [place] [address] (Wo rk) 01/21/2022 Office Visit Gastroenterology Juanis Levi [address] [place] [phone] Luis Fernando Miles MD [address] [place] [address] documented as of this encounter Visit Diagnoses Not on filedocumented in this encounter Care Teams Manager Market Development Relationship Specialty Start Date End Date Luis Fernando Magana PCP - General Family Practice 12/07/16 01/19/[address] [address] documented as of this encounter
--- OUTSIDE RECORDS SUMMARY | 2021-12-14 16:22 | XMS_ITS | Encounter Summary ---
:1980 Author Organization [place] Address [address] [place] [address] Care Team Providers Name Role Phone Luis [...] at Date Recorded Female 01/14/2020 10:57 AM CITRUS FRUIT PACKER documented as of this encounter Miscellaneous Notes Note - Marycarmen Mohamud RN - 01/20/2017 2:10 PM CST This note was copied from a baby's chart. Phone call made to [phone] in attempt to reach mother Stephani regarding breast milk and breast feeding. There was a voicemail. I left a message for the mother to call me regarding an update. No patient information revealed, only to contact myself at the NICU phone number. It appears that no breast milk has been received from home. Donor milk will end when baby reaches 34 wks. US FRUIT PACKER documented in this encounter Plan of Treatment Upcoming Encounters Date Type Specialty Care Team Description 12/20/2021 Office Visit Wound Care Luis Camara, [place] [address] [place] [address] (Wo rk) 01/21/2022 PRE VISIT Gastroenterology Landon Warren, *-*WANDAIN G RECORDS*-* MD Luis Fernando [address] [phone] (Wo rk) 01/21/2022 Office Visit Gastroenterology Juanis Levi [address] [place] [phone] Luis Fernando Miles MD [address] [address] documented as of this encounter Visit Diagnoses Not on filedocumented in this encounter Care Teams Pricing Consultant Relationship Specialty Start Date End Date Luis Fernando Magana PCP - General Family Practice 12/07/16 01/19/[address] [address] documented as of this encounter
--- OUTSIDE RECORDS SUMMARY | 2021-12-14 16:22 | XMS_ITS | Encounter Summary ---
:1980 Author Organization [place] Address [address] [facility] [place] [address] Care Team Providers Name Role Phone Luis Fernando Magana Primary Care Provider Reason for Visit Reason Onset Date Comments Refill Request 03/05/2017 buprenorphine (SUBUT EX) 2 MG SUBL Encounter Details Date Type Department Care Team Description 03/05/2017 Refill [facility] Edgar Alfredo, Ref ill Request Clinic Ashly VÁSQUEZ (buprenorphine (SUBUTEX) [address] [place] 2 MG SUBL) [address] [place] [phone] (Wo rk) Social History Tobacco Use Types Packs/Day Years Used Date Smoking Tobacco: Every Day Cigarettes 0.1 10 Smokeless Tobacco: Never Comments: 5 cigarettes a day Alcohol Use Standard Drinks/Week Comments Yes 0 (1 standard drink = 0.6 oz pure Stoppe d after found out alcohol) Sex Assigned at Date Recorded Female 01/14/2020 10:57 AM HOSPICE/HOME HEALTH AIDE documented as of this encounter Miscellaneous Notes Telephone Encounter - Edgar Alfredo MD - 03/06/2017 2:21 PM CST Spoke to patient Bridge called in ICE/HOME HEALTH AIDE Telephone Encounter - Santosh Pyle RN - [...] acreeda. Pt's insurance is not accepted at [facility] and but will be changed on March 20. Pt's insurance is not covered in clinic and pt will be switching to [facility] next month Will forward to Dr. Alfredo. Santosh Pyle RN ICE/HOME HEALTH AIDE Telephone Encounter - Santosh Pyle RN - 03/06/2017 11:56 AM CST Butcher Apprentice attempted to call pt, No answer. LVM for Pt to call clinic back and schedule an Appt at [phone]. Santosh Pyle RN ICE/HOME HEALTH AIDE Telephone Encounter - Edgar Alfredo MD - 03/06/2017 10:58 AM CST No refill until appointment is made ICE/HOME HEALTH AIDE Telephone Encounter - Santosh Pyle RN - 03/05/2017 11:16 AM CST buprenorphine (SUBUTEX) 2 MG SUBL sublingual tablet Controlled Substance Refill Request Last refill: 01/03/17 Last clinic visit: 10/10/16 Next appt: none scheduled Documentation in problem list reviewed: Yes Processing: call/fax RX monitoring program ([place]MP) reviewed: Rx for Oxycodone 10 and 20 mg tabs on 12/27/16. MNPMP profile: [email or web address] Pt had Appt's scheduled on 01/23/17, 12/23/16, 11/26/16 and didn't make it to any of these Appt's Last Appt was on 10/10/16. No Appt's scheduled. Dr. Alfredo would you like to see Pt in the clinic again? Santosh Pyle RN ICE/HOME HEALTH AIDE Telephone Encounter - Dora Merchant - 03/05/2017 10:40 AM CST Last Written Prescription Date: 01/03/17 Last Fill Quantity: 100, # refills: 0 Last Office Visit with [facility] or [facility] prescribing provider: 10/13/16 Future Office Visit: Requested Prescriptions Pending Prescriptions Disp Refills ??? buprenorphine (SUBUTEX) 2 MG SUBL sublingual tablet 100 tablet 0 Sig: Place 1 tablet (2 mg) under the tongue 5 times daily There is no refill protocol information for this order ICE/HOME HEALTH AIDE documented in this encounter Plan of Treatment Upcoming Encounters Date Type Specialty Care Team Description 12/20/2021 Office Visit Wound Care Luis Camara, [place] [address] [place] [address] (Wo rk) 01/21/2022 PRE VISIT Gastroenterology Landon Warren, *-*HEATHER G RECORDS*-* MD Luis Fernando [address] [place] [phone] (Wo rk) 01/21/2022 Office Visit Gastroenterology Juanis Levi [address] [place] [phone] Luis Fernando Miles MD [address] [place] [phone] documented as of this encounter Visit Diagnoses Diagnosis Uncomplicated opioid dependence (H) Opioid type dependence, unspecified documented in this encounter Care Teams Sub Arc Operator Relationship Specialty Start Date End Date Luis Fernando Magana PCP - General Family Practice 12/07/16 01/19/18 [place] [id number] documented as of this encounter
--- OUTSIDE RECORDS SUMMARY | 2021-12-14 16:22 | XMS_ITS | Encounter Summary ---
:1980 Author Organization [place] Address [address] [place] [address] Care Team Providers Name Role Phone Luis [...] Date Recorded Female 01/14/2020 10:57 AM ENGINEERING FACULTY documented as of this encounter Miscellaneous Notes [...] call. Will continue to follow and support. NEERING FACULTY documented in this encounter Plan of Treatment Upcoming Encounters Date Type Specialty Care Team Description 12/20/2021 Office Visit Wound Care Luis Camara DPM [address] [place], [place] [phone] (Wo rk) 01/21/2022 PRE VISIT Gastroenterology Landon Warren, *-*INCOMIN G RECORDS*-* MD Luis Fernando [address] [place] [phone] (Wo rk) 01/21/2022 Office Visit Gastroenterology Juanis Levi [address] [place] [phone] Luis Fernando Miles MD [address] [place] [phone] documented as of this encounter Visit Diagnoses Not on filedocumented in this encounter Care Teams Collection Analyst Relationship Specialty Start Date End Date Luis Fernando Magana PCP - General Family Practice 12/07/16 01/19/[address] [address] documented as of this encounter
--- OUTSIDE RECORDS SUMMARY | 2021-12-14 16:23 | XMS_ITS | Encounter Summary ---
:1980 Author Organization [facility] Address [address] [facility] [place] [address] Care Team Providers Name Role Phone Luis Fernando Magana Primary Care Provider Reason for Visit Auth/Cert Specialty Diagnoses / Procedures Referred By Contact Refer red To Contact heater operator Diagnoses Maternity*JEAN MARIE: 03/07/2017 Rupture premature rupture of membranes (PPROM) delivered, current hospitalization [facility] [address] [place] [address] Phone: Referral ID Status Reason Start Date Expiration Date Visits Requ ested Visits Authorized [id number] 12/09/2016 12/09/2017 1 1 Encounter Details Date Type Department Care Team Description 12/24/2016 Anesthesia Event [facility] Genesis Phillip M D PeriOp Services Ann Marie Walker MD [address] [place] [address] [address] [place] [address] Anesthesia Record Procedure Summary Procedure [...] 1948; No; 12/24/161947 by 12/25/16 1545 by /GI/GENERAL ENGINEER Pelvic Kassy Monteiro RN Drake, Vicki A auto adjudication specialist; 16 fr RETIRED ETT 12/24/16; 1956; Mask [...] Date Recorded Female 01/14/2020 10:57 AM CASTING ROOM OPERATOR documented as of this encounter OR Notes Anesthesia Postprocedure Evaluation - Genesis Phillip MD - 12/25/2016 2:40 AM CASTING ROOM OPERATOR Patient: Stephani King Procedure(s): Section Immediate [...] Phillip MD December 25, 2016 2:40 AM [facility] Anesthesia Procedure Notes - Genesis Phillip MD - 12/25/2016 12:20 AM CSTAssociated Order(s): ANE UU PERIPHERAL/PARAVETEBRAL BLOCK Peripheral Nerve Block Procedure Note Staff: Anesthesiologist: GENESIS PHILLIP Resident/RADIOTELEPHONE OPERATOR: ANN MARIE HAZEL Block performed by resident/RADIOTELEPHONE OPERATOR in the presence of a teaching physician [...] No Infusion Method: Single Shot Complications: None ING ROOM OPERATOR Anesthesia Preprocedure Evaluation - Genesis Phillip MD - 12/24/2016 11:25 PM CASTING ROOM OPERATOR Anesthesia Evaluation . Pt has had [...] with Patient. Consented to blood products. . ING ROOM OPERATOR Anesthesia Procedure Notes - Erika Tobar APRN CRNA - 12/24/2016 9:12 PM CSTAssociated Order(s): ANE UU A LINE CATHETER PLACEMENT Arterial Line Procedure Note Staff: Anesthesiologist: GENESIS PHILLIP Resident/RADIOTELEPHONE OPERATOR: ANN MARIE HAZEL Arterial line performed by resident/RADIOTELEPHONE OPERATOR in presence of a teaching physician Location: [...] Yes IBP within 10% of NIBP: Yes ING ROOM OPERATOR documented in this encounter Miscellaneous Notes [...] (Last set prior to Anesthesia Care Transfer) RADIOTELEPHONE OPERATOR VITALS 12/24/2016 2333 - 12/25/2016 0022 12/25/2016 Pulse: 85 SpO2: (!) 88 % Electronically Signed By: Ann Marie Hazel MD December 25, 2016 12:22 AM ING ROOM OPERATOR documented in this encounter Plan of Treatment Upcoming Encounters Date Type Specialty Care Team Description 12/20/2021 Office Visit Wound Care Luis Camara, [place] [address] [place], [place] [phone] (Wo rk) 01/21/2022 PRE VISIT Gastroenterology Landon Warren, *-*WANDAIN G RECORDS*-* MD Luis Fernando [address] [phone] (Wo rk) 01/21/2022 Office Visit Gastroenterology Juanis Levi [address] [place] [phone] Luis Fernando Miles MD [address] [id number] documented as of this encounter Procedures Procedure Name Priority Date/Time Associated Diagnosis Comme nts ANE Routine 12/25/2016 12:22 AM CASTING ROOM OPERATOR PERIPHERAL/PARAVETEBRAL BLOCK Procedure Note - Genesis Phillip MD - 12/25/2016 12:20 AM CSTThis note is in progress. Formatting of this note migh t be different from the original. Peripheral Nerve Block Proce dure Note Staff: Anesthesiologist: JOSELUIS PHILLIP Resident/RADIOTELEPHONE OPERATOR: IMELDA HAZEL Block performed by resident /RADIOTELEPHONE OPERATOR in the presence of a teaching physician [...] LINE CATHETER PLACEMENT Routine 12/24/2016 9:12 PM CASTING ROOM OPERATOR Procedure Note - Km Tobar APRN CRNA - 12/24/2016 9:12 PM CSTThis note is in progress. Formatting of this note migh t be different from the original. Arterial Line Procedure Note Staff: Anesthesiologist: JOSELUIS PHILLIP Resident/RADIOTELEPHONE OPERATOR: IMELDA HAZEL Arterial line performed by resident/RADIOTELEPHONE OPERATOR in presence of a teaching physician Location: [...] cell unit New Bag 12/24/2016 10:05 PM CASTING ROOM OPERATOR STAT, On Fri12/24/16 at 1940 New Bag 12/24/2016 8:10 PM CASTING ROOM OPERATOR Transfuse red blood cell unit New Bag 12/24/2016 8:15 PM CASTING ROOM OPERATOR STAT, On Fri12/24/16 at 1941 Inactive Administered Medications - up to 3 most recent administrations Medication Order MAR Action Action Date Dose Rate Site 0.9% sodium chloride infusion New Bag 12/24/2016 10:04 PM CASTING ROOM OPERATOR CONTINUOUS PRN, Anesthesia Intra-op, Starting on Fri12/24/16 at 1943, Until Fri12/25/16 at 0019 New Bag 12/24/2016 9:42 PM CASTING ROOM OPERATOR New Bag 12/24/2016 7:43 PM CASTING ROOM OPERATOR bupivacaine 0.25 % - EPINEPHrine 1:200,000 Given 12/24/2016 11:50 PM CASTING ROOM OPERATOR 20 mLs injection PRN, Starting on Fri12/24/16 at 2350, Anesthesia Intra-op bupivacaine liposome (EXPAREL) 1.3 % LA inj Given 08/2016 11:50 PM CASTING ROOM OPERATOR 20 mLs susp 20 mL 20 mL, Infiltration, DURING SURGERY, Starting on Fri12/24/16 at 2136, For 1 dose, Invert vial to re-suspend particles immediately prior to withdrawal from vial. Stable for 4 hours at room temperature once removed from vial., Intra-procedure calcium chloride injection Given 12/24/2016 9:53 PM CASTING ROOM OPERATOR 1 g PRN, Starting on Fri12/24/16 at 2037, Anesthesia Intra-op Given 12/24/2016 8:57 PM CASTING ROOM OPERATOR 1 g Given 12/24/2016 8:37 PM CASTING ROOM OPERATOR 1 g ceFAZolin (ANCEF) 1 g vial to attach to NS 100 Given 02/24/2016 11:21 PM CASTING ROOM OPERATOR 1 g ml bag for ADULT or 50 ml bag for PEDS Routine, Intravenous, PRN, Starting on Fri12/24/16 at 1939, Anesthesia Intra-op Given 12/24/2016 9:07 PM CASTING ROOM OPERATOR 1 g Given 12/24/2016 7:39 PM CASTING ROOM OPERATOR 2 g ePHEDrine injection Given 12/24/2016 8:58 PM CASTING ROOM OPERATOR 5 mg Intravenous, PRN, Starting on Fri12/24/16 at 2024, Anesthesia Intra-op Given 12/24/2016 8:35 PM CASTING ROOM OPERATOR 10 mg Given 12/24/2016 8:24 PM CASTING ROOM OPERATOR 10 mg fentaNYL (PF) (SUBLIMAZE) injection Given 12/24/2016 11:12 PM CASTING ROOM OPERATOR 100 mcg PRN, moderate to severe pain, Administer over 3-5 Minutes, Starting on Fri12/24/16 at 2259, Anesthesia Intra-op Given 12/24/2016 10:59 PM CASTING ROOM OPERATOR 100 mcg HYDROmorphone (DILAUDID) injection Given 12/25/2016 12:15 AM CASTING ROOM OPERATOR 0.5 mg PRN, moderate to severe pain, Starting on Fri12/24/16 at 2301, Anesthesia Intra-op Given 12/25/2016 12:02 AM CASTING ROOM OPERATOR 0.5 mg Given 12/24/2016 11:05 PM CASTING ROOM OPERATOR 0.5 mg lactated ringers infusion New Bag 12/24/2016 8:17 PM CASTING ROOM OPERATOR at 125 mL/hr, Intravenous, CONTINUOUS, Pre-procedure, Starting on Fri12/24/16 at 1900, Until Fri12/25/16 at 0150 New Bag 12/24/2016 7:35 PM CASTING ROOM OPERATOR midazolam (VERSED) injection Given 12/24/2016 9:16 PM CASTING ROOM OPERATOR 2 mg Intravenous, Administer over 2 Minutes, PRN, anxiety, Starting on Fri12/24/16 at 2029, Anesthesia Intra-op Given 12/24/2016 8:29 PM CASTING ROOM OPERATOR 2 mg ondansetron (ZOFRAN) injection Given 12/24/2016 11:29 PM CASTING ROOM OPERATOR 4 mg Intravenous, PRN, nausea, vomiting, Administer over 2-5 Minutes, Starting on Fri12/24/16 at 2329, Anesthesia Intra-op oxytocin (PITOCIN) 30 units in New Bag 12/24/2016 8:05 PM CASTING ROOM OPERATOR 300 mL/hr 300 mL/hr 500 mL 0.9% NaCl infusion CONTINUOUS PRN, Starting on Fri12/24/16 at 2005, Anesthesia Intra-op phenylephrine (VINCENT-SYNEPHRINE) injection 1 Bolus 12/24/2016 9:33 PM CASTING ROOM OPERATOR 100 mcg mg 1 mg, Intravenous, CONTINUOUS PRN, Starting on Fri12/24/16 at 2013, Anesthesia Intra-op Bolus 12/24/2016 9:23 PM CASTING ROOM OPERATOR 100 mcg Bolus 12/24/2016 9:13 PM CASTING ROOM OPERATOR 100 mcg propofol (DIPRIVAN) injection 10 mg/mL v ial Given 12/24/2016 7:56 PM CASTING ROOM OPERATOR 200 mg Intravenous, PRN, Starting on Fri12/24/16 at 1956, Anesthesia Intra-op rocuronium (ZEMURON) injection Given 12/24/2016 10:12 PM CASTING ROOM OPERATOR 10 mg Intravenous, PRN, Starting on Fri12/24/16 at 2006, Anesthesia Intra-op Given 12/24/2016 9:28 PM CASTING ROOM OPERATOR 30 mg Given 12/24/2016 8:54 PM CASTING ROOM OPERATOR 20 mg succinylcholine (ANECTINE) injection Given 12/24/2016 7:56 PM CASTING ROOM OPERATOR 200 mg Intravenous, PRN, Starting on Fri12/24/16 at 1956, Anesthesia Intra-op sugammadex (BRIDION) injection Given 12/24/2016 11:50 PM CASTING ROOM OPERATOR 170 mg PRN, Starting on Fri12/24/16 at 2350, Anesthesia Intra-op Transfuse cryoprecipitate unit New 12/24/2016 11:10 PM CASTING ROOM OPERATOR Routine, On Fri12/24/16 at 2311 Transfuse plasma unit New 12/24/2016 8:48 PM CASTING ROOM OPERATOR Routine, On Fri12/24/16 at 2028 Transfuse platelets unit 12/24/2016 9:19 PM CASTING ROOM OPERATOR Routine, On Fri12/24/16 at 2119 Transfuse red blood cell unit New 12/24/2016 8:42 PM CASTING ROOM OPERATOR STAT, On Fri12/24/16 at 2034 Transfuse red blood cell unit New 12/24/2016 9:30 PM CASTING ROOM OPERATOR STAT, On Fri12/24/16 at 2046 Transfuse red blood cell unit New 12/24/2016 8:59 PM CASTING ROOM OPERATOR STAT, On Fri12/24/16 at 2046 Transfuse red blood cell unit New 12/24/2016 8:58 PM CASTING ROOM OPERATOR STAT, On Fri12/24/16 at 2046 Transfuse red blood cell unit New 12/24/2016 8:47 PM CASTING ROOM OPERATOR STAT, On Fri12/24/16 at 2046 Transfuse red blood cell unit New 12/24/2016 10:15 PM CASTING ROOM OPERATOR STAT, On Fri12/24/16 at 2156 Transfuse red blood cell unit New 12/24/2016 10:50 PM CASTING ROOM OPERATOR STAT, On Fri12/24/16 at 2156 Transfuse red blood cell unit New 12/24/2016 9:56 PM CASTING ROOM OPERATOR STAT, On Fri12/24/16 at 2156 documented in this encounter Care Teams Books Salesperson Relationship Specialty Start Date End Date Luis Fernando Magana PCP - General Family Practice 12/07/16 01/19/18 [address] [address] [place] [address] documented as of this encounter
--- OUTSIDE RECORDS SUMMARY | 2021-12-14 16:23 | XMS_ITS | Encounter Summary ---
:1980 Author Organization [facility] Address [address] [facility] [place] [address] Care Team Providers Name Role Phone Luis Fernando Magana Primary Care Provider Reason for Visit Reason Onset Date Comments Refill Request 12/26/2016 Subutex 2 mg, Wellbu ayaka 150 mg Encounter Details Date Type Department Care Team Description 12/26/2016 Refill [facility] Edgar Alfredo, Ref ill Request (Subutex [facility] [place] 2 mg, Wellbutrin [address] [place] ) [address] [place] [phone] (Wo rk) Social History Tobacco Use Types Packs/Day Years Used Date Smoking Tobacco: Every Day Cigarettes 0.1 10 Smokeless Tobacco: Never Comments: 5 cigarettes a day Alcohol Use Standard Drinks/Week Comments Yes 0 (1 standard drink = 0.6 oz pure Stoppe d after found out alcohol) Sex Assigned at Date Recorded Female 01/14/2020 10:57 AM ARABIC LINGUIST documented as of this encounter Miscellaneous Notes Telephone Encounter - Laura Fried RN - 01/06/2017 10:04 AM CST Subutex script called in to [facility] pharmacy. Lauar Fried RN IC LINGUIST Telephone Encounter - Edgar Alfredo MD - 01/03/2017 12:43 PM CST Please call in Subutex ordered IC LINGUIST Telephone Encounter - Laura Fried RN - 12/27/2016 7:55 AM CST Controlled Substance Refill Request for Subutex Last refill: 12/05/16, 120 tablets, 24 day supply Last clinic visit: 10/10/16 Next appt: 01/23/17 Controlled substance agreement on file: No. Documentation in problem list reviewed: Yes Processing: Fax Rx to pt's pharmacy RX [place] program ([place]) reviewed: ENGINEER AND GEOLOGIST reviewed- no concerns [place] profile: [email or web address] Thank you! Laura Fried RN IC LINGUIST Telephone Encounter - Mark Roldan - 12/26/2016 4:46 PM CST Pt called she had her baby early and she will be discharging from the hospital tomorrow, pt requesting a bridge of Subutex and Welbutrin until her next appt on 01/23. Pt contact info: [phone] Mark Roldan Computer Systems Architect IC LINGUIST documented in this encounter Plan of Treatment Upcoming Encounters Date Type Specialty Care Team Description 12/20/2021 Office Visit Wound Care Luis Camara DPM [address] [place], [place] [address] (Wo rk) 01/21/2022 PRE VISIT Gastroenterology Landon Warren, *-*WANDAIN G RECORDS*-* MD Luis Fernando [address] [facility] [address] [place], [place] [phone] (Wo rk) 01/21/2022 Office Visit Gastroenterology Juanis Levi [address] [place] [address] Luis Fernando Miles MD [address] [facility] [address] [place] [address] documented as of this encounter Visit Diagnoses Diagnosis Major depressive disorder, recurrent epi sode, moderate (H) Major depressive disorder, recurrent epi sode, moderate Uncomplicated opioid dependence (H) Opioid type dependence, unspecified documented in this encounter Care Teams Database Engineer Relationship Specialty Start Date End Date Luis Fernando Magana PCP - General Family Practice 12/07/16 01/19/[address] [address] documented as of this encounter
--- OUTSIDE RECORDS SUMMARY | 2021-12-14 16:23 | XMS_ITS | Encounter Summary ---
:1980 Author Organization [place] Address [facility] [place] [address] Care Team Providers Name Role Phone Luis Fernando Magana Primary Care Provider Reason for Referral Consultation Specialty Diagnoses / Procedures Referred By Contact Refer red To Contact Marleny Kang MD [place] [phone] Referral ID Status Reason Start Date Expiration Date Visits Requ ested Visits Authorized MAKER MACHINE Specialty Diagnoses / Procedures Referred By Contact Refer red To Contact Marleny Kang MD [place] [phone] Referral ID Status Reason Start Date Expiration Date Visits Requ ested Visits Authorized MAKER MACHINE Reason for Visit Reason Comments Rule out rupture of membranes Auth/Cert Specialty Diagnoses / Procedures Referred By Contact Refer red To Contact iron and steel work supervisor Diagnoses Maternity*JEAN MARIE: 03/07/2017 Rupture premature rupture of membranes (PPROM) delivered, current hospitalization [facility] [address] [place] [address] Phone: Referral ID Status Reason Start Date Expiration Date Visits Requ ested Visits Authorized [id number] 12/09/2016 12/09/2017 1 1 Encounter Details Date Type Department Care Team Description 12/07/2016 - Hospital Encounter [facility] Autumn Leslie willie Alvarez MD [address] [place] [address] Chronic hepatitis C without hepatic coma (H) (Primary Dx); 12/27/2016 [facility] Nalini Eli MD [address] [place] [address] Placenta accreta in third trimester; [address] [facility] S/P emergency hysterectomy; [place], [place] Lashawn Patel MD [address] [place] [address] Dental caries; [id number] Petrona Barone DO [address] [place] [address] S/P laparotomy [phone] So Nunez MD [address] [place] [address] Social History Tobacco Use Types Packs/Day Years Used Date Smoking Tobacco: Every Day Cigarettes 0.1 10 Smokeless Tobacco: Never Comments: 5 cigarettes a day Alcohol Use Standard Drinks/Week Comments Yes 0 (1 standard drink = 0.6 oz pure Stoppe d after found out alcohol) Sex Assigned at Date Recorded Female 01/14/2020 10:57 AM CAGE MAKER MACHINE documented as of this encounter Last Filed Vital Signs Vital Sign Reading Time Taken Comments Blood Pressure 119/68 12/27/2016 8:00 AM CAGE MAKER MACHINE Pulse 90 12/27/2016 8:00 AM CAGE MAKER MACHINE Temperature 36.5 ??C (97.7 ??F) 12/27/2016 8:00 AM CAGE MAKER MACHINE Respiratory Rate 18 12/27/2016 8:00 AM CAGE MAKER MACHINE Oxygen Saturation 99% 12/27/2016 8:00 AM CAGE MAKER MACHINE Inhaled Oxygen Concentration - - Weight 83.4 kg (183 lb 14.4 oz) 12/27/2016 6:00 AM CAGE MAKER MACHINE Height 167.6 cm (5' 6) 12/07/2016 2:19 PM CDT Body Mass Index 29.68 12/07/2016 2:19 PM CDT documented in this encounter Discharge Summaries Petrona Barone DO - 12/27/2016 8:[address] [facility] Discharge Summary Deann King Age: [age] year [...] uncomplicated. She was initially given a dilaudid SURFACE GRINDING MACHINE HAND, but was transitioned to PO medications on [...] Discharge Medications: Deann King Home Medication Instructions MAILE:[id number] Printed on:12/28/16 7738 Medication Information acetaminophen (TYLENOL) 325 MG tablet [...] machinery while on narcotics. Marleny Kang MD BALLISTICS PROFESSOR PGY-3 I agree with above discharge summary Petrona Barone DO FACOG Maternal Medicine Specialist Pager: [phone] MAKER MACHINE documented in this encounter Discharge Instructions Discharge InstructionsErika Villalpando RN - 12/27/2016 7:51 AM CAGE MAKER MACHINE Postop Instructions Activity ?? Do not lift [...] questions or concerns after you return home. MAKER MACHINE documented in this encounter Medications at Time [...] them with the children. JACKIE spoke with [facility] and they report that the family has been assigned to Francisco Silverman [phone] who is top case assembler with CPS ongoing. (Francisco is out of office until 01/27/17, this marketing copywriter left ). Deann has history of substance use disorder and has been sober for 8 years. She is followed closely by Dr. Alfredo and is on Subutex. Deann also struggles with anxiety and depression, at this time she reports she is doing well. I)JACKIE confirmed with [facility]'s [facility] [phone] that Deann is able to schedule one [...] up to visit. JACKIE spoke with NICU nurse outreach case manager and SW informed Deann that an exception would not be made. JACKIE left [facility] at bedside for Deann to sign so that this marketing copywriter can coordinate care with pending sale to [facility] social media community manager Francisco. A)JACKIE spoke [...] from [facility] 12/24/16 chart on 01/23/17 MAKER MACHINE Petrona Barone, - 12/27/2016 5:[address] [facility] Post- Note Name: Deann King S: Patient [...] Routine management: Pain: S/p TAP blocks and SURFACE GRINDING MACHINE HAND. Scheduled ibuprofen and tylenol. PO oxycodone 20 [...] plan regarding pain management Marleny Kang MD Regulation Supervisor, PGY-3 Physician Attestation IPetrona DO, saw and [...] regarding post c/hyst, opioid dependence, discharge instructions. MAKER MACHINE Petrona Barone DO - 12/26/2016 6:[address] [facility] Note Name: Deann King S: Patient is [...] Routine management: Pain: S/p TAP blocks and SURFACE GRINDING MACHINE HAND. Scheduled toradol, tylenol. PRN IV dilaudid and [...] and meeting postoperative goals Marleny Kang MD Regulation Supervisor, PGY-3 Physician Attestation I, Petrona Barone, DO, [...] coordinating care regarding postop care from c/hyst. MAKER MACHINE Marleny Kang MD - 12/25/2016 9:54 PM [...] oximetry, discussed with RN. Marleny Kang MD BALLISTICS PROFESSOR PGY-3 MAKER MACHINE Marilu Lam MD - 12/25/2016 9:38 PM CST I have seen and examined this patient this AM (note delayed). She is HD stable and tolerating her recovery to date. WE have discussed the implication of her surgery and she is aware that she will not be able to have additional children, but is grateful to be feeling well. Marilu Lam MAKER MACHINE Petrona Barone DO - 12/25/2016 5:[address] [facility] Note Name: Deann King S: Patient is [...] b/l I/O last 3 completed shifts: In: 30789 [I.V.:4800] Out: 5900 [Urine:900; Blood:5000] Hgb: Hemoglobin [...] 2. cares: Pain: S/p TAP blocks. Dilaudid SURFACE GRINDING MACHINE HAND with scheduled tylenol. Holding NSAIDs until Hgb [...] Hypothyroidism: - Continue synthroid. Marleny Kang MD Regulation Supervisor, PGY-3 Physician Attestation I, Petrona Barone DO, [...] tolerance. Labs stable. Toradol given now. Increase SURFACE GRINDING MACHINE HAND to 0.3mg continuous with 0.3-0.5mg bumps. Total [...] regarding post op pain, recovery plan, etc. MAKER MACHINE Marleny Kang MD - 12/25/2016 2:[address] [facility] Note Name: Deann King S: Patient seen [...] b/l I/O last 3 completed shifts: In: 23999 [I.V.:4800] Out: 5900 [Urine:900; Blood:5000] Hgb: Hemoglobin [...] 2. cares: Pain: S/p TAP blocks. Dilaudid SURFACE GRINDING MACHINE HAND with scheduled tylenol, will increase demand dose. Holding NSAIDsuntil Hgb stabilizes. Continue home subutex for history of substance abuse. Supportive measures including warm packs, abdominal binder. GI: CLD, advance as tolerated. Scheduled bowel regimen ordered. : Duarte in place, strict Is/Os. Daily weights. Rh: Positive. Rubella: Non-immune, MMR ordered. Mood: Continue home effexor, wellbutrin. SW is following patient. Marleny Kang MD Regulation Supervisor, PGY-3 12/25/2016, 2:28 AM MAKER MACHINE Yareli Greenwood RN - 12/24/2016 8:35 PM [...] Dr. Barone M staff and Dr. Nunez BALLISTICS PROFESSOR staff were notified. Delivery plan was confirmed [...] OR notified, proceed urgently. Marleny Kang MD BALLISTICS PROFESSOR PGY-3 MF staff note: Called regarding change in clinical status for patient. Delivery indicated in the setting of pretermcervical dilation, hemorrhage with known posterior placenta previa/possible accreta and prolonged ROM. S/p BMZ nearly 2 weeks ago. Magnesium sulfate for PULL SOCKET ASSEMBLER recommended. Type and cross with blood in OR. Petrona Barone DO FACOG Maternal Medicine Specialist Pager: [phone] MAKER MACHINE Petrona Barone DO - 12/24/2016 10:18 AM CST [facility] Antepartum Progress Note Subjective: She [...] 140s, moderate variability, present accels, absent decels [place]: no contractions or irritability noted Imaging: See [...] c-hyst unless previa resolves with [facility] double staff. - Care conference scheduled for [...] million. Needs follow up with GI or Regional Director for treatment options . - Notify NICU [...] with Dr. Barone. Tatyana Walsh MD MPH BALLISTICS PROFESSOR, PGY3 Pager: [phone] 12/23/2016 10:04 AM Physician Attestation I, Petrona [...] team of new symptoms. Marleny Kang MD BALLISTICS PROFESSOR PGY-3 Petrona Tinoco DO - 12/23/2016 10:04 [...] 130s, moderate variability, present accels, absent decels [place]: quiet, no contractions Assessment/Plan: Deann King is [...] - Needs follow up with GI or Regional Director for treatment options . ? 5) History [...] with Dr. Barone. Tatyana Walsh MD MPH BALLISTICS PROFESSOR, PGY3 Pager: [phone] 12/23/2016 10:04 AM Physician Attestation I, Petrona [...] coordinating care regarding placenta previa/PPROM, possible accreta. MAKER MACHINE Nora Mohamud MD - 12/22/2016 10:45 AM [...] patient): December 22, 2016 Nora Mohamud MD Property Field Inspector, BALLISTICS PROFESSOR Maternal- Medicine [email or web address] [phone] (Academic office) [phone] (Pager) MAKER MACHINE Nora Mohamud MD - 12/21/2016 11:52 AM [...] patient): December 21, 2016 Nora Mohamud MD Property Field Inspector, BALLISTICS PROFESSOR Maternal- Medicine [email or web address] [phone] (Academic office) [phone] (Pager) Apple Sen RD - 12/20/2016 11:41 [...] protocol. Apple Sen RD, LD Unit Pager: [phone] Lashawn Patel MD - 12/20/2016 8:59 AM [...] moderate variability, + accels, rare variable decels [place]: quiet, 0 ctx in 10 minutes Assessment/Plan: [...] c-hyst unless previa resolves with [facility] double staff. ? 3. FWB: - Category [...] - Needs follow up with GI or Regional Director for treatment options . ? 5. History [...] accels, absent decels - appropriate for GA. [place]: no contractions No intervention needed at this time. Tatyana Walsh MD MPH BALLISTICS PROFESSOR, PGY3 Pager: [phone] 12/19/2016 11:56 PM Lashawn Patel MD - [...] 130s, moderate variability, + accels, no decels [place]: quiet, 0 ctx in 10 minutes Assessment/Plan: [...] - Needs follow up with GI or Regional Director for treatment options . ? 5. History [...] accels, absent decels - appropriate for GA. [place]: no contractions No intervention needed at this time. Tatyana Walsh MD MPH BALLISTICS PROFESSOR, PGY3 Pager: [phone] 12/19/2016 3:13 AM Lashawn Patel MD - [...] 130s, moderate variability, + accels, no decels [place]: quiet, 0 ctx in 10 minutes Assessment/Plan: [...] - Needs follow up with GI or Regional Director for treatment options . ? 5. History [...] weeks from dose increase. Marleny Kang MD BALLISTICS PROFESSOR PGY-3 Physician Attestation I, Lashawn Patel, saw [...] from scratching area. Tatyana Walsh MD MPH BALLISTICS PROFESSOR, PGY3 Pager: [phone] 12/18/2016 12:08 AM Marleny Kang MD - 12/17/2016 12:35 PM CDT BALLISTICS PROFESSOR Progress Note Patient complaining of right ear pain. Notes some mild nasal stuffiness. Denies fever, postnasal drip, hearing changes, other signs of systemic illness including fevers. Denies history of ear infection. Gently cleans ears. Otoscopic exam without exudate or signs of infection, clear TM, no tenderness with motion. Will give debrox drops and monitor for symptoms. Marleny Kang MD BALLISTICS PROFESSOR PGY-3 Marleny Kang MD - 12/17/2016 11:29 AM CDT BALLISTICS PROFESSOR Progress Note Patient seen at bedside to [...] attempt at this time. Marleny Kang MD BALLISTICS PROFESSOR PGY-3 Lashawn Patel MD - 12/17/2016 6:56 [...] 150's, moderate variability, + accels, no decels [place]: Quiet Assessment/Plan: Deann iKng is a 36 year old @ 28w4d [...] - Needs follow up with GI or Regional Director for treatment options . ? 5. History [...] accels, absent decels - appropriate for GA. [place]: no contractions No intervention needed at this time. Tatyana Walsh MD MPH BALLISTICS PROFESSOR, PGY3 Pager: [phone] 12/17/2016 Lashawn Patel MD - 12/16/2016 6:54 [...] 140s, moderate variability, + accels, no decels [place]: 0 ctx in 10 minutes, quiet Assessment/Plan: [...] - Needs follow up with GI or Regional Director for treatment options . ? 5. History [...] and acupuncture as needed. Marleny Kang MD BALLISTICS PROFESSOR PGY-3 Physician Attestation I, Lashawn Patel, saw [...] accels, absent decels - appropriate for GA. [place]: no contractions No intervention needed at this time. Tatyana Walsh MD MPH BALLISTICS PROFESSOR, PGY3 Pager: [phone] 12/16/2016 2:14 AM Petrona Barone DO - [...] moderate variability, present accelerations (10x10), absent decelerations [place]: No contractions noted 12/03 MR IMPRESSION: 1. [...] - Needs follow up with GI or Regional Director for treatment options . ? 5. History [...] 150, moderate variability, present accelerations, absent decelerations [place]: No contractions noted 12/03 MR IMPRESSION: 1. [...] - Needs follow up with GI or Regional Director for treatment options . ? 5. History [...] patient, she is agreeable. Elizabeth Manzanares MD BALLISTICS PROFESSOR Resident PGY4 Pager [phone] 12/13/[address] - 12/13/2016 12:12 [...] (nausea, vomiting) up until about a week VARNISH DIPPER. Over the past 2 weeks she has [...] protocol. Echo Graham RD, LD Unit Pager: [phone] Nora Mohamud MD - 12/13/2016 8:50 AM [...] variable decels. Overall appropriate for gestational age. [place]: no contractions, quiet ? US (12/08): posterior/left [...] - Needs follow up with GI or Regional Director for treatment options . ? 5. History [...] the treatment of hepatitis C with a tumbler operator. A consultation was placed to discuss [...] patient): December 13, 2016 Nora Mohamud MD Property Field Inspector, BALLISTICS PROFESSOR Maternal- Medicine [email or web address] [phone] (Academic office) [phone] (Pager) Tatyana Walsh MD - 12/13/2016 3:23 AM CDT Strip Review (Not delayed due to patient care) FHT: Baseline 150s bpm, moderate variability, prolonged accels, absent decels - appropriate for GA. [place]: no contractions No intervention required at this time. Tatyana Walsh MD MPH BALLISTICS PROFESSOR, PGY3 Pager: [phone] 12/13/2016 3:23 AM Jess Bernstein LICSW - 12/12/2016 11:11 AM CDT Met with patient today and completed [employer] application. Application faxed today. SW will continue [...] small decels. Overall appropriate for gestational age. [place]: no contractions, quiet ? US (12/08): posterior/left [...] - Needs follow up with GI or Regional Director for treatment options . ? 5. History [...] patient): December 12, 2016 Nora Mohamud MD Property Field Inspector, BALLISTICS PROFESSOR Maternal- Medicine [email or web address] [phone] (Academic office) [phone] (Pager) Tatyana Walsh MD - 12/12/2016 12:53 AM CDT Strip Review (Not delayed due to patient care, services at 2200 on 12/11/2016) FHT: Baseline 140-150s bpm, moderate variability, prolonged accels, absent decels - appropriate for GA. [place]: no contractions No intervention required at this time. Tatyana Walsh MD MPH BALLISTICS PROFESSOR, PGY3 Pager: [phone] 12/12/2016 12:53 AM Nora Kovacs, PT - [...] in agreement with plan of care Yes [facility] AM-PAC TM 6 Clicks ?? 2016, Trustees of [facility], under license to [employer]. All rights reserved. 6 Clicks Short Forms Basic Mobility Inpatient Short Form [facility] AM-PAC??? 6 Clicks V.2 Basic Mobility [...] small decels. Overall appropriate for gestational age. [place]: no contractions, quiet ? US (12/08): posterior/left [...] - Needs follow up with GI or Regional Director for treatment options . ? 5. History [...] patient): December 11, 2016 Nora Mohamud MD Property Field Inspector, BALLISTICS PROFESSOR Maternal- Medicine [email or web address] [phone] (Academic office) [phone] (Pager) Tatyana Walsh MD - 12/10/2016 11:23 PM CDT Strip Review FHT: Baseline 150s bpm, moderate variability, present accels, absent decels - appropriate for GA. [place]: no contractions No intervention needed at this time. Tatyana Walsh MD MPH BALLISTICS PROFESSOR, PGY3 Pager: [phone] 12/10/2016 11:24 PM Jess Bernstein, CATIA DESIGNER - 12/10/2016 11:49 AM CDT [facility] MATERNAL CHILD [facility] SOCIAL WORK PROGRESS NOTE DATA: Met with Deann to assess needs and to offer support. Patient is 36 year-old, Deann King. She and her , Rafal have been for two years. They live in subsidized housing in [place], [place]. Deann and Rafal know they are [...] defect and was in the NICU at [facility]. in November 2014 at 5 1/2 months [...] work. Rafal works at a factory in [place].Rafal does not have his driver guide's license. Deann did not offer details about [...] Assistance, talamantes and food assistance benefits through [facility]. Baby Lopez will be added to these programs upon . Deann would like to switch her MA to [employer] and is asking for SW assistance with this. Encouraged Deann to contact [facility] Economic Assistance and ask to speak to a financial worker to see what is needed to make this change. Deann is not currently enrolled in [facility] but is interested in application for these benefits. JACKIE contacted [facility] today and message left for the Hospital Cook to see if it is possible to enroll Deann and her 4 year-old son in [facility] while Deann is hospitalized. Deann has only limited baby supplies-- some clothing and a swing. can provide assistance with a Pack N Play and diapers from [facility]. Deann has history of chemical abuse. She [...] has been working with a SW at [facility] (Francisco [phone]) . Deann identifiesthis SW at very supportive. [...] results from her echo today from the teacher adult education. She informed us everything looked normal. She [...] small decels. Overall appropriate for gestational age. [place]: 1 contraction in 1 hour, not felt [...] - Needs follow up with GI or Regional Director for treatment options . ? 5. History [...] patient): December 10, 2016 Nora Mohamud MD Property Field Inspector, BALLISTICS PROFESSOR Maternal- Medicine [email or web address] [phone] (Academic office) [phone] (Pager) ?? Tatyana Walsh MD - 12/09/2016 10:46 PM CDT Strip Review FHT: Baseline 150s bpm, moderate variability, present accels, absent decels - appropriate for GA. [place]: 1 contractions/30 mins No intervention needed at this time. Hypothyroidism - TSH returned at normal range - no change to current synthroid needed. Depression - pending psych consult at this time. Continue home effexor. Tatyana Walsh MD MPH BALLISTICS PROFESSOR, PGY3 Pager: [phone] 12/09/2016 10:46 PM Nora Mohamud MD - [...] 130s, moderate variability, + accels, no decels [place]: quiet, 0 ctx in 10 minutes US [...] will follow-up on administration. Marleny Kang MD BALLISTICS PROFESSOR PGY-3 Maternal- Medicine Attending Addendum Late entry, [...] patient): December 09, 2016 Nora Mohamud MD Property Field Inspector, BALLISTICS PROFESSOR Maternal- Medicine [email or web address] [phone] (Academic office) [phone] (Pager) Tatyana Walsh MD - 12/08/2016 7:58 PM CDT Strip Review FHT: Baseline 150s bpm, moderate variability, present accels, absent decels - appropriate for GA. [place]: no contractions, uterine irritability Tatyana Walsh MD MPH BALLISTICS PROFESSOR, PGY3 Pager: [phone] 12/08/2016 8:00 PM Italia Galarza DO - [...] 140s, moderate variability, + accels, no decels [place]: 0 ctx in 10 minutes US (12/08): [...] and Tdap ordered today. Marleny Kang MD BALLISTICS PROFESSOR PGY-3 Attending Attestation: I agree with the residents note above. I spent 15 minutes total [id number] with this inpatient, and >50% of the [...] toxicity at this time. Rossana Barker MD Regulation Supervisor, PGY-3 12/08/2016, 2:23 AM documented in this encounter H&P Notes Nora Leyva MD - 12/07/2016 3:[address] [facility] OB History and Physical Deann King Age: [...] Negative Negative for C. trachomatis rRNA by shade matcher mediated amplification. A negative result by shade matcher mediated amplification does not preclude the presence of C. trachomatis infection because results are dependent on proper and adequate collection, absence of inhibitors, and sufficient rRNA to be detected. [facility] 08/29/2016 Negative Negative for N. gonorrhoeae rRNA by shade matcher mediated amplification. A negative result by shade matcher mediated amplification does not preclude the presence [...] BREAST SURGERY ABcess drained ??? SECTION ??? DAIRY HUSBANDRY WORKER SURGERY ??? ORTHOPEDIC SURGERY ??? THORACIC [...] 150, moderate variability, no accelerations, no decelerations [place]: 0 contractions in 10 minutes Assessment Ms. [...] Sofía Cao APRN, CNP, 12/20/2016 4:09 PM [facility] Intensive Care Unit [place] Amanda, Elba [...] a consultation by Nora Mohamud MD at [facility] Antepartum. Patient is currentlyunemployed. She had been working for her mother's [employer] service, but had to stop due to [...] through lifestyle changes. She and her attend gnosticism-based meetings twice a week and no longer [...] provider, she may schedule outpatient follow-up with [facility] (call [phone] and inform residential life director that you are or have recently had a baby) or contact insurance company for additional referrals.? Please contact [facility] if patient is in need of [...] time to herself. She asked if this marketing copywriter could return tomorrow or later this afternoon, but this marketing copywriter told her that she is booked and won't be able to accommodate except for this morning. Cnc Operator Programmer mentioned at the end that if she [...] time to herself. She asked if this marketing copywriter could return tomorrow or later this afternoon, but this marketing copywriter told her that she is booked and won't be able to accommodate except for this morning. Cnc Operator Programmer mentioned at the end that if she [...] this service's next availability). Madonna Carrasquillo APRN TIRE INSTALLER - 12/07/2016 5:00 PM CDTAssociated Order(s): NURSE [...] intraventricular hemorrhage, nutrition, growth and development, and fresh meat grader outcomes. Please feel free to call with any additional questions or concerns. Madonna Carrasquillo APRN, [facility] 12/07/2016 6:51 PM Nurse Practitioner Service Intensive Care Unit [facility] Floor Time (min): 5 Face to Face [...] leveled and Zeroed, after labs were drawn, Lave[place] was removed with approval of Dr Torres. Site held for 5 minutes and dressing placed to Left wrist, no bleeding or oozing noted at that time. Pt VSS, capnography started, pt's family updated via phone, will report to floor RN. MAKER MACHINE Lisa Rubio RN - 12/25/2016 1:42 AM CST PACU to Inpatient Nursing Handoff Patient Deann King is a 36 year old female who speaks Mongolian. Procedure Procedure(s): Section Immediate Hysterectomy, Bilateral Salpingectomy [...] mg (total dose) last given at 0131 SURFACE GRINDING MACHINE HAND / epidural Yes. SURFACE GRINDING MACHINE HAND - hydromorphone (Dilaudid) Capnography Telemetry ECG Rhythm: [...] numbness;no tingling (12/24/16 09) Equipment capnography and SURFACE GRINDING MACHINE HAND Other LDA IV Access Peripheral IV 12/22/16 Left Upper forearm (Active) Site Assessment [facility] except;Leaking 12/25/2016 12:38 AM Line Status Saline locked 12/25/2016 12:38 AM Phlebitis Scale 0-->no symptoms 12/23/2016 8:45 AM Infiltration Scale 0 12/23/2016 8:45 AM Dressing Intervention Other (Comment) 12/23/2016 8:45 AM Number of days:3 Peripheral IV 12/24/16 Right Upper forearm (Active) Site Assessment [facility] 12/25/2016 12:38 AM Line Status Saline locked 12/25/2016 12:38 AM Number of days:1 Peripheral IV 12/24/16 Left Lower forearm (Active) Site Assessment [facility] 12/25/2016 12:38 AM Line Status Infusing [...] 12/25/2016 12:05 AM Rationale for Continued Use Anesthesia;/GI/DAIRY HUSBANDRY WORKER Pelvic Procedure 12/25/2016 12:05 AM Urine Output [...] the antepartum RN. Lisa Rubio RN ASCOM [id number] MAKER MACHINE documented in this encounter Miscellaneous Notes Plan of Care - Nakia Figueroa VARNISH DIPPER - 12/27/2016 3:26 PM CST Problem: PT [...] questions and will d/c from inpatient PT. MAKER MACHINE Associated attestation - Roxy Sr, PT - 12/27/2016 6:21 PM CAGE MAKER MACHINE Physical Therapy Discharge Summary Reason for therapy discharge: Discharged to home with outpatient therapy. Progress towards therapy goal(s). See goals on Care Plan in [facility] electronic health record for goal details. Goals [...] leaving. F/U in clinic understood by patient. MAKER MACHINE Plan of Care - Erika Villalpando RN - 12/27/2016 7:50 AM CST Referral made to [facility] for early dc. MAKER MACHINE Plan of Care - Lucia Cotton RN [...] out which was taken to the nicu. MAKER MACHINE Plan of Care - Hyacinth Wolf RN [...] more. Will continue with plan of Care. MAKER MACHINE Note - Nikky Smith RNC - 12/26/2016 [...] to provide support. Nikky Smith RNC, IBCLC MAKER MACHINE Plan of Care - Lucia Cotton, RN [...] of without calling us to stand by. MAKER MACHINE Plan of Care - Yessenia Julian RN [...] at bedside. Continue with plan of care. MAKER MACHINE Provider Notification - Kristie Merida RN - 12/25/2016 9:01 PM CST Sepsis alert came up for pt. BP 91/63. HR of 115. SpO2 of 98. MAKER MACHINE Plan of Care - Maria Antonia Hidalgo [...] and oral oxycodone given with initial relief. MAKER MACHINE Provider Notification - Kristie Merida RN - 12/25/2016 7:48 PM CST Do you want pt to continue with IV Toradol and Dilaudid? FYI-pt is going outside to smoke. MAKER MACHINE Plan of Care - Maria Antonia Hidalgo [...] Patient medicated during the shift with dilaudid SURFACE GRINDING MACHINE HAND for pain, which was discontinued at 13:50. [...] any other needs. Anticipate discharge on Friday. MAKER MACHINE Plan of Care - Maria Antonia Hidalgo [...] one hour. Fixed and working well now MAKER MACHINE Plan of Care - Khloe Elmore RN - 12/25/2016 5:50 AM CST Problem: ( Delivery) (Adult,Obstetrics,Pediatric) Goal: Signs and Symptoms of Listed Potential Problems Will be Absent, Minimized or Managed () Signs and symptoms of listed potential problems will be absent, minimized or managed by discharge/transition of care (reference ( Delivery) (Adult,Obstetrics,Pediatric) CPG). Outcome: No Change Pt's pain intolerable with SURFACE GRINDING MACHINE HAND @ 0.2mg dilaudid every 10 minutes, dose increased to 0.3mg every 10 minutes with max dose delivery 1.2mg/hr. Pt's pain remains intolerable, but getting better, she falls asleep between SURFACE GRINDING MACHINE HAND doses. MAKER MACHINE Op Note - So Nunez MD - 12/24/2016 11:[address] [facility] Full Operative Progress Note Surgery Date: 12/24/2016 Surgeon: So Nunez MD Assistants: Marilu Lam MD Security Associate/Onc staff Petrona Barone MD MFM staff Donita Barrow MD MFM fellow Margarita Talbert MD Security Associate/Onc fellow Marleny Kang MD PGY-3 Tatyana Govea MD PGY-3 Kayla aDvidson MD PGY-2 Exceptional Circumstances Require an Screen Printing Loader Unloader Surgeon -Exceptional medical circumstances in this case required the participation of fitter's assistant surgeons Drs. Barone and Idania in [...] entirety of the procedure. Marleny Kang MD Regulation Supervisor, PGY-3 12/24/2016, 11:54 PM I was present and scrubbed throughout the procedure, I agree with the note above So Nunez MD MAKER MACHINE Brief Op Note - Marleny Kang MD - 12/24/2016 11:[address] [facility] Hysterectomy Brief Operative Note Surgery Date: 12/24/2016 Surgeon: So Nunez MD; Marilu Lam MD (intraoperative consult) Assistants: Petrona Barone MD MFM staff Donita Barrow MD MFM fellow Margarita Talbert MD Security Associate/Onc fellow Marleny Kang MD PGY-3 Tatyana Govea [...] Disposition: Stable to PACU Marleny Kang MD BALLISTICS PROFESSOR PGY-3 MAKER MACHINE Op Note - Marilu Lam MD - 12/24/2016 10:18 PM CST DATE OF SERVICE: 12/07/2016 Remainder of this note will be dictated by Dr. Nunez's service and for my portion is as follows: ATTENDING: Marilu Lam MD APPRAISER TIMBER: Dr. Talbert, PGY 7 ANESTHESIA: GET COMPLICATIONS: [...] MD MT: LENARD Name: DEANN KING Account: [id number] : 1980 Procedure Date: 12/07/2016 Document: [id number] MAKER MACHINE Plan of Care - Juanis Henson, RN [...] questions answered. SCD's were placed. [facility] to transfer to the OR. There was no new bleeding after the spec exam and prior to transfer to cart. While transferto OR patient felt blood coming out and only a small amount was seen on perineum. Dr. Barone was updated on patient status while transfer to OR. MAKER MACHINE Plan of Care - Juanis Henson RN - 12/24/2016 6:04 PM CST Problem: Patient Care Overview Goal: Plan of Care/Patient Progress Review Outcome: No Change Continues to have cramping. Intensity remains the same. Continue to monitor. MAKER MACHINE Plan of Care - Nakia Figueroa PTA - 12/24/2016 4:18 PM CST Problem: PT General Care Plan Goal: PT target date for goal attainment PT: patient displayed improvement with pain and prior to treatment rated neck pain 4/10 and after manual therapy decreased to 0/10. 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 Entered by: Nakia Figueroa 12/24/2016 4:17 PM MAKER MACHINE Plan of Care - Petrona Sharif RN [...] 140s, with moderate variability and without decelerations. MAKER MACHINE Plan of Care - Annie Allen RN [...] labor, signs/symptoms of infection, or /maternal compromise. MAKER MACHINE Plan of Care - Annie Allen RN [...] reassured after exam. Continue plan of care. MAKER MACHINE Provider Notification - Annie Allen RN - 12/24/2016 12:02 AM CST 12/24/16 0002 Provider Notification Provider Name/Title Dr. Kang Method of Notification Electronic Page Request Evaluate - Remote Notification Reason Other (Comment) Pt requesting UA/UC for increased urine frequency. Thanks MAKER MACHINE Provider Notification - Juanis Henson RN - [...] see patient when she returns to floor. MAKER MACHINE Plan of Care - Juanis Henson RN [...] symptoms. RN will talk with Dr. Kang. MAKER MACHINE Plan of Care - Juanis Henson RN [...] ate, in case she progresses into labor. MAKER MACHINE Provider Notification - Leslie Mendoza RN - 12/23/2016 3:35 PM CST 12/23/16 0755 Provider Notification Provider Name/Title Dr. Walsh, Dr. Barone, Med student Method of Notification At Bedside Request Evaluate in Person Notification Reason Status Update MAKER MACHINE Plan of Care - Leslie Mendoza RN [...] labor, signs/symptoms of infection, or /maternal compromise. MAKER MACHINE Provider Notification - Leslie Mendoza RN - 12/23/2016 12:31 PM CST 12/23/16 0945 OB Patient Position Activity/Level of Assist Ambulating Patient went outside MAKER MACHINE Provider Notification - Leslie Mendoza RN - 12/23/2016 12:31 PM CST 12/23/16 0720 OB Patient Position Maternal Position Standing Activity/Level of Assist Ambulating Patient went outside (to smoke) MAKER MACHINE Provider Notification - Leslie Mendoza RN - 12/23/2016 7:58 AM CST Providers here for morning rounds and EFM strip review. Patient concerned about her oral pain on hertongue. There is a sore/ulceration there. Providers reminding patient to NOT self examine digitally her cervix. MAKER MACHINE Plan of Care - Bonita Love RN [...] Will continue with current plan of care. MAKER MACHINE Provider Notification - Bonita Love RN - 12/22/2016 8:02 PM CAGE MAKER MACHINE 12/22/162000 Provider Notification Provider Name/Title Dr. Kang Method of Notification In Department Notification Reason Other (Comment) Patient reporting increased leaking of fluid today. Yellow colored on pads, no odor. Patient is not having any abdominal tenderness. Afebrile. Pt declines monitoring at this time. Dr. Kang updated. MAKER MACHINE Plan of Care - Yareli Marsh RN [...] today. Will continue with plan of care. MAKER MACHINE Plan of Care - Wendy Richter RN [...] VSS; EFM as charted. Continue expectant management. MAKER MACHINE Plan of Care - Wendy Richter RN - 12/22/2016 3:13 AM CST Due to daylight savings time, labor calculations, ruptured membrane calculations and/or cervical exams times may be off by up to one hour from the actual time. A summary of the times/calcuations follows: None for this patient. MAKER MACHINE Plan of Care - So Cheng RN [...] son. They have been working on some [employer] blanketsand watching movies. Pt continues to go [...] the bathroom for longer period of time. 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 [place] quiet and EFM mod variability, occasional accels, [...] No visitors last diana but worked on [employer] and did other crafts/games. No complaints today. [...] axillary as well as left upper abd. [place], raised areas, itches but also [place] per [...] postural exercises and relief with suboccipital release. 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 Placed on EFM, no contractions noted accelerations and baby appropriate for gestational age.Patient called marketing copywriter back into room at 1305 stating that [...] of Care/Patient Progress Review Outcome: No Change Cnc Operator Programmer went to assess vital signs. Pt. Stated that she had some reddish pink mucus in the toilet andsome pink fluid on the toilet tissue. Small quarter sized reddish pink mucus noted in the bottom of the toilet. Urine was yellow colored, no blood noted. Cnc Operator Programmer placed and uterine monitors on thepatient. Patient [...] scant bloody mucus in toilet when voided. Linn on toilet tissue. Dr. Cyr notified of [...] within reach. Pt states understanding to put director religious education light if any change in condition. 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 [facility]. Pt is [...] within reach. Pt states understanding to put director religious education light if any changes in condition. Plan [...] orintensity. Abdomen palpates soft, and toco didn't supervisor opening and picking any contractions. FHT: mod variability with accels, [...] Visit Wound Care Luis Camara DPM [address] [place], [place] [phone] (Wo rk) 01/21/2022 PRE VISIT Gastroenterology Landon Warren, *-*WANDAIN G RECORDS*-* MD Luis Fernando [address] [place] [phone] (Wo rk) 01/21/2022 Office Visit Gastroenterology Juanis Levi [address] [place] [phone] Luis Fernando Miles MD [address] [place] [phone] [phone] Pending Results Name Type Priority Associated Date/Time Diagnoses Transfuse red blood Nursing Transfusion STAT 1 02/24/2016 8:10 cell unit PM CAGE MAKER MACHINE Transfuse red blood Nursing Transfusion STAT 1 02/24/2016 8:15 cell unit PM CAGE MAKER MACHINE Transfuse plasma unit Nursing Transfusion Routine 12/24/2016 8:48 PM CAGE MAKER MACHINE Transfuse red blood Nursing Transfusion STAT 1 02/24/2016 8:42 cell unit PM CAGE MAKER MACHINE Transfuse red blood Nursing Transfusion STAT 1 02/24/2016 9:30 cell unit PM CAGE MAKER MACHINE Transfuse red blood Nursing Transfusion STAT 1 02/24/2016 8:59 cell unit PM CAGE MAKER MACHINE Transfuse red blood Nursing Transfusion STAT 1 02/24/2016 8:58 cell unit PM CAGE MAKER MACHINE Transfuse red blood Nursing Transfusion STAT 1 02/24/2016 8:47 cell unit PM CAGE MAKER MACHINE Placenta path order and Lab Routine 08/2016 8:05 indications PM CAGE MAKER MACHINE Transfuse platelets Nursing Transfusion Routine 1 02/24/2016 9:19 unit PM CAGE MAKER MACHINE Transfuse red blood Nursing Transfusion STAT 1 02/24/2016 10:15 cell unit PM CAGE MAKER MACHINE Transfuse red blood Nursing Transfusion STAT 1 02/24/2016 10:50 cell unit PM CAGE MAKER MACHINE Transfuse red blood Nursing Transfusion STAT 1 02/24/2016 9:56 cell unit PM CAGE MAKER MACHINE Cryoprecipitate prepare Blood Bank Routine Chronic hepatitis 12/24/2016 10:59 order unit C without hepatic PM CAGE MAKER MACHINE coma (H) Transfuse Nursing Transfusion Routine 12/25/19 17 11:10 cryoprecipitate unit PM CAGE MAKER MACHINE Scheduled Referrals Name Type Priority Associated Diagnoses Order S chedule GASTROENTEROLOGY ADULT REF Referral Routine Chronic hepati tis C Ordered: 12/26/2016 CONSULT ONLY without hepatic coma (H) DENTAL REFERRAL Referral Routine Dental caries Ordered: documented as of this encounter Procedures Procedure Name Priority Date/Time Associated Comments Diagnosis CBC WITH PLATELETS Routine 12/26/2016 8:10 Chronic hepatitis R esults for this AM CAGE MAKER MACHINE C without hepatic procedure are in coma (H) the results section. CBC WITH PLATELETS Timed 12/25/2016 2:04 Chronic hepatitis R esults for this PM CAGE MAKER MACHINE C without hepatic procedure are in coma (H) the results section. INR Timed 12/25/2016 7:00 Chronic hepatitis Results for this AM CAGE MAKER MACHINE C without hepatic procedure are in coma (H) the results section. PARTIAL THROMBOPLASTIN Timed 12/25/2016 7:00 Chronic hepatit is Results for this TIME AM CAGE MAKER MACHINE C without hepatic procedure are in coma (H) the results section. MAGNESIUM Timed 12/25/2016 7:00 Chronic hepatitis Results for this AM CAGE MAKER MACHINE C without hepatic procedure are in coma (H) the results section. FIBRINOGEN ACTIVITY Timed 12/25/2016 7:00 Chronic hepatitis Results for this AM CAGE MAKER MACHINE C without hepatic procedure are in coma (H) the results section. BASIC METABOLIC PANEL Timed 12/25/2016 7:00 Chronic hepatiti s Results for this AM CAGE MAKER MACHINE C without hepatic procedure are in coma (H) the results section. CBC WITH PLATELETS Timed 12/25/2016 7:00 Chronic hepatitis R esults for this AM CAGE MAKER MACHINE C without hepatic procedure are in coma (H) the results section. INR Routine 12/25/2016 12:54 Chronic hepatitis Result s for this AM CAGE MAKER MACHINE C without hepatic procedure are in coma (H) the results section. PARTIAL THROMBOPLASTIN Routine 12/25/2016 12:54 Chronic hepati tis Results for this TIME AM CAGE MAKER MACHINE C without hepatic procedure are in coma (H) the results section. FIBRINOGEN ACTIVITY Routine 12/25/2016 12:54 Chronic hepatitis Results for this AM CAGE MAKER MACHINE C without hepatic procedure are in coma (H) the results section. BASIC METABOLIC PANEL Routine 12/25/2016 12:54 Chronic hepatit is Results for this AM CAGE MAKER MACHINE C without hepatic procedure are in coma (H) the results section. CBC WITH PLATELETS Routine 12/25/2016 12:54 Chronic hepatitis Results for this AM CAGE MAKER MACHINE C without hepatic procedure are in coma (H) the results section. XR ABDOMEN PORT 1 VIEW STAT 12/24/2016 11:10 R esults for this PM CAGE MAKER MACHINE procedure are i n the results section. TRANSFUSE Routine 12/24/2016 11:10 CRYOPRECIPITATE UNIT PM CAGE MAKER MACHINE BLOOD COMPONENT Routine 12/24/2016 10:59 Chronic hepatitis Res ults for this PM CAGE MAKER MACHINE C without hepatic procedure are in coma (H) the results section. PREPARE CRYOPRECIPITATE Routine 12/24/2016 10:59 Chronic hepat itis (SINGLE UNIT) PM CAGE MAKER MACHINE C without hepatic coma (H) TRANSFUSE RED BLOOD CELL STAT 12/24/2016 10:50 UNIT PM CAGE MAKER MACHINE ARTERIAL PANEL Routine 12/24/2016 10:45 Chronic hepatitis Resu lts for this PM CAGE MAKER MACHINE C without hepatic procedure are in coma (H) the results section. TRANSFUSE RED BLOOD CELL STAT 12/24/2016 10:15 UNIT PM CAGE MAKER MACHINE SURGICAL PATHOLOGY EXAM Routine 12/24/2016 10:13 Results for this PM CAGE MAKER MACHINE procedure are i n the results section. TRANSFUSE RED BLOOD CELL STAT 12/24/2016 9:56 UNIT PM CAGE MAKER MACHINE ARTERIAL PANEL Routine 12/24/2016 9:50 Chronic hepatitis Resul ts for this PM CAGE MAKER MACHINE C without hepatic procedure are in coma (H) the results section. INR Routine 12/24/2016 9:50 Chronic hepatitis Results for this PM CAGE MAKER MACHINE C without hepatic procedure are in coma (H) the results section. PARTIAL THROMBOPLASTIN Routine 12/24/2016 9:50 Chronic hepatit is Results for this TIME PM CAGE MAKER MACHINE C without hepatic procedure are in coma (H) the results section. FIBRINOGEN ACTIVITY Routine 12/24/2016 9:50 Chronic hepatitis Results for this PM CAGE MAKER MACHINE C without hepatic procedure are in coma (H) the results section. CBC WITH PLATELETS Routine 12/24/2016 9:50 Chronic hepatitis R esults for this PM CAGE MAKER MACHINE C without hepatic procedure are in coma (H) the results section. TRANSFUSE RED BLOOD CELL STAT 12/24/2016 9:30 UNIT PM CAGE MAKER MACHINE ARTERIAL PANEL Routine 12/24/2016 9:20 Chronic hepatitis Resul ts for this PM CAGE MAKER MACHINE C without hepatic procedure are in coma (H) the results section. TRANSFUSE PLATELETS UNIT Routine 12/24/2016 9:19 PM CAGE MAKER MACHINE TRANSFUSE RED BLOOD CELL STAT 12/24/2016 8:59 UNIT PM CAGE MAKER MACHINE TRANSFUSE RED BLOOD CELL STAT 12/24/2016 8:58 UNIT PM CAGE MAKER MACHINE TRANSFUSE PLASMA UNIT Routine 12/24/2016 8:48 PM CAGE MAKER MACHINE TRANSFUSE RED BLOOD CELL STAT 12/24/2016 8:47 UNIT PM CAGE MAKER MACHINE BLOOD COMPONENT Routine 12/24/2016 8:45 Chronic hepatitis Resu lts for this PM CAGE MAKER MACHINE C without hepatic procedure are in coma (H) the results section. BLOOD COMPONENT Routine 12/24/2016 8:45 Chronic hepatitis Resu lts for this PM CAGE MAKER MACHINE C without hepatic procedure are in coma (H) the results section. PREPARE PLATELETS ORDER Routine 12/24/2016 8:45 Chronic hepati tis Results for this UNIT PM CAGE MAKER MACHINE C without hepatic procedure are in coma (H) the results section. ARTERIAL PANEL Routine 12/24/2016 8:44 Chronic hepatitis Resul ts for this PM CAGE MAKER MACHINE C without hepatic procedure are in coma (H) the results section. INR Routine 12/24/2016 8:44 Chronic hepatitis Results for this PM CAGE MAKER MACHINE C without hepatic procedure are in coma (H) the results section. PARTIAL THROMBOPLASTIN Routine 12/24/2016 8:44 Chronic hepatit is Results for this TIME PM CAGE MAKER MACHINE C without hepatic procedure are in coma (H) the results section. FIBRINOGEN ACTIVITY Routine 12/24/2016 8:44 Chronic hepatitis Results for this PM CAGE MAKER MACHINE C without hepatic procedure are in coma (H) the results section. CBC WITH PLATELETS Routine 12/24/2016 8:44 Chronic hepatitis R esults for this PM CAGE MAKER MACHINE C without hepatic procedure are in coma (H) the results section. TRANSFUSE RED BLOOD CELL STAT 12/24/2016 8:42 UNIT PM CAGE MAKER MACHINE ARTERIAL PANEL Routine 12/24/2016 8:25 Chronic hepatitis Resul ts for this PM CAGE MAKER MACHINE C without hepatic procedure are in coma (H) the results section. PLACENTA PATH ORDER AND Routine 12/24/2016 8:05 INDICATIONS PM CAGE MAKER MACHINE BLOOD COMPONENT Routine 12/24/2016 7:25 Chronic hepatitis Resu lts for this PM CAGE MAKER MACHINE C without hepatic procedure are in coma (H) the results section. BLOOD COMPONENT Routine 12/24/2016 7:25 Chronic hepatitis Resu lts for this PM CAGE MAKER MACHINE C without hepatic procedure are in coma (H) the results section. BLOOD COMPONENT Routine 12/24/2016 7:25 Chronic hepatitis Resu lts for this PM CAGE MAKER MACHINE C without hepatic procedure are in coma (H) the results section. BLOOD COMPONENT Routine 12/24/2016 7:25 Chronic hepatitis Resu lts for this PM CAGE MAKER MACHINE C without hepatic procedure are in coma (H) the results section. BLOOD COMPONENT Routine 12/24/2016 7:25 Chronic hepatitis Resu lts for this PM CAGE MAKER MACHINE C without hepatic procedure are in coma (H) the results section. BLOOD COMPONENT Routine 12/24/2016 7:25 Chronic hepatitis Resu lts for this PM CAGE MAKER MACHINE C without hepatic procedure are in coma (H) the results section. BLOOD COMPONENT Routine 12/24/2016 7:25 Chronic hepatitis Resu lts for this PM CAGE MAKER MACHINE C without hepatic procedure are in coma (H) the results section. BLOOD COMPONENT Routine 12/24/2016 7:25 Chronic hepatitis Resu lts for this PM CAGE MAKER MACHINE C without hepatic procedure are in coma (H) the results section. PREPARE PLASMA (UNIT) Routine 12/24/2016 7:25 Chronic hepatiti s Results for this PM CAGE MAKER MACHINE C without hepatic procedure are in coma (H) the results section. HYSTERECTOMY, FOLLOWING 12/24/2016 7:24 SECTION PM CAGE MAKER MACHINE CBC WITH PLATELETS & STAT 12/24/2016 7:06 Chronic hepatitis Results for this DIFFERENTIAL PM CAGE MAKER MACHINE C without hepatic procedure are in coma (H) the results section. ROUTINE UA WITH Routine 12/24/2016 7:50 Chronic hepatitis Resu lts for this MICROSCOPIC REFLEX TO AM CAGE MAKER MACHINE C without hepatic p rocedure are in CULTURE coma (H) the results section. URINE CULTURE Routine 12/24/2016 7:50 Chronic hepatitis Result s for this AM CAGE MAKER MACHINE C without hepatic procedure are in coma (H) the results section. WET PREPARATION Routine 12/23/2016 11:53 Chronic hepatitis Res ults for this PM CAGE MAKER MACHINE C without hepatic procedure are in coma (H) the results section. MFM BPP SINGLE Routine 12/23/2016 8:37 Results fo r this AM CAGE MAKER MACHINE procedure are i n the results section. BLOOD COMPONENT Routine 12/23/2016 6:54 Chronic hepatitis Resu lts for this AM CAGE MAKER MACHINE C without hepatic procedure are in coma (H) the results section. BLOOD COMPONENT Routine 12/23/2016 6:54 Chronic hepatitis Resu lts for this AM CAGE MAKER MACHINE C without hepatic procedure are in coma (H) the results section. BLOOD COMPONENT Routine 12/23/2016 6:54 Chronic hepatitis Resu lts for this AM CAGE MAKER MACHINE C without hepatic procedure are in coma (H) the results section. BLOOD COMPONENT Routine 12/23/2016 6:54 Chronic hepatitis Resu lts for this AM CAGE MAKER MACHINE C without hepatic procedure are in coma (H) the results section. BLOOD COMPONENT Routine 12/23/2016 6:54 Chronic hepatitis Resu lts for this AM CAGE MAKER MACHINE C without hepatic procedure are in coma (H) the results section. BLOOD COMPONENT Routine 12/23/2016 6:54 Chronic hepatitis Resu lts for this AM CAGE MAKER MACHINE C without hepatic procedure are in coma (H) the results section. BLOOD COMPONENT Routine 12/23/2016 6:54 Chronic hepatitis Resu lts for this AM CAGE MAKER MACHINE C without hepatic procedure are in coma (H) the results section. BLOOD COMPONENT Routine 12/23/2016 6:54 Chronic hepatitis Resu lts for this AM CAGE MAKER MACHINE C without hepatic procedure are in coma (H) the results section. BLOOD COMPONENT Routine 12/23/2016 6:54 Chronic hepatitis Resu lts for this AM CAGE MAKER MACHINE C without hepatic procedure are in coma (H) the results section. BLOOD COMPONENT Routine 12/23/2016 6:54 Chronic hepatitis Resu lts for this AM CAGE MAKER MACHINE C without hepatic procedure are in coma (H) the results section. BLOOD COMPONENT Routine 12/23/2016 6:54 Chronic hepatitis Resu lts for this AM CAGE MAKER MACHINE C without hepatic procedure are in coma (H) the results section. BLOOD COMPONENT Routine 12/23/2016 6:54 Chronic hepatitis Resu lts for this AM CAGE MAKER MACHINE C without hepatic procedure are in coma (H) the results section. ABO/RH TYPE AND SCREEN Routine 12/23/2016 6:54 Chronic hepatit is Results for this AM CAGE MAKER MACHINE C without hepatic procedure are in coma (H) the results section. ABO/RH TYPE AND SCREEN Timed 12/20/2016 10:48 Chronic hepati tis Results for this AM CDT C without hepatic procedure are in coma (H) the results section. [facility] BPP SINGLE Routine 12/19/2016 8:46 Results fo r this AM CDT procedure are i n the results section. ABO/RH TYPE AND SCREEN Timed 12/17/2016 6:54 Chronic hepatit is Results for this AM CDT C without hepatic procedure are in coma (H) the results section. [facility] US OB LIMITED Routine 12/16/2016 [...] procedure are i n the results section. [facility] US OB LIMITED Routine 12/12/2016 [...] (ABNORMAL) CBC with platelets (12/26/2016 8:10 AM CAGE MAKER MACHINE) [facility] gist Method Time Signature WBC 8.5 4.0 - 11.0 12/26/2016 [facility] 10e9/L 8:20 AM [facility] RBC Count 3.19 (L) 3.8 - 5.2 12/26/2016 [facility] 10e12/L 8:20 AM [facility] Hemoglobin 9.2 (L) 11.7 - 12/26/2016 [facility] 15.7 g/dL 8:20 AM [facility] Hematocrit 27.2 (L) 35.0 - 12/26/2016 [facility] 47.0 % 8:20 AM [facility] MCV 85 78 - 100 12/26/2016 [facility] fl 8:20 AM [facility] MCH 28.8 26.5 - 12/26/2016 [facility] 33.0 pg 8:20 AM [facility] MCHC 33.8 31.5 - 12/26/2016 [facility] 36.5 g/dL 8:20 AM [facility] RDW 14.7 10.0 - 12/26/2016 [facility] 15.0 % 8:20 AM [facility] Platelet Count 144 (L) 150 - 450 12/26/2016 [facility] 10e9/L 8:20 AM [facility] Specimen Anatomical Collection Method Collection Time Receive d Time (Source) Location / / Volume Laterality Blood specimen 12/26/2016 8:10 AM 017 8:12 (specimen) CAGE MAKER MACHINE AM CAGE MAKER MACHINE Kayla Davidson MD LAB - BLOOD ORDERABLES Performing Organization Address City/[facility]/ZIP Code Phon e Number [address] (ABNORMAL) CBC with platelets (12/25/2016 2:04 PM CAGE MAKER MACHINE) [facility] gist Method Time Signature WBC 9.7 4.0 - 11.0 12/25/2016 [facility] 10e9/L 2:10 PM [facility] RBC Count 3.45 (L) 3.8 - 5.2 12/25/2016 [facility] 10e12/L 2:10 PM [facility] Hemoglobin 10.1 (L) 11.7 - 12/25/2016 [facility] 15.7 g/dL 2:10 PM [facility] Hematocrit 28.8 (L) 35.0 - 12/25/2016 [facility] 47.0 % 2:10 PM [facility] MCV 84 78 - 100 12/25/2016 [facility] fl 2:10 PM [facility] MCH 29.3 26.5 - 12/25/2016 [facility] 33.0 pg 2:10 PM [facility] MCHC 35.1 31.5 - 12/25/2016 [facility] 36.5 g/dL 2:10 PM [facility] RDW 14.4 10.0 - 12/25/2016 [facility] 15.0 % 2:10 PM [facility] Platelet Count 142 (L) 150 - 450 12/25/2016 [facility] 10e9/L 2:10 PM [facility] Specimen Anatomical Collection Method Collection Time Receive d Time (Source) Location / / Volume Laterality Blood specimen 12/25/2016 2:04 PM 017 2:08 (specimen) CAGE MAKER MACHINE PM CAGE MAKER MACHINE So Nunez MD LAB - BLOOD ORDERABLES Performing Organization Address City/[facility] Code Phon e Number [place] [phone] [facility] (ABNORMAL) Magnesium (12/25/2016 7:00 AM CAGE MAKER MACHINE) P athologist Signature Magnesium 1.5 (L) 1.6 - 2.3 12/25/2016 [facility] mg/dL 8:07 AM [facility] Specimen Anatomical Collection Method Collection Time Receive d Time (Source) Location / / Volume Laterality Blood specimen 12/25/2016 7:00 AM 017 7:06 (specimen) CAGE MAKER MACHINE AM CAGE MAKER MACHINE So Nunez MD LAB - BLOOD ORDERABLES Performing Organization Address City/State/ZIP Code Phon e Number [facility] [address] [place] [address] [facility] (ABNORMAL) Basic metabolic panel (12/25/2016 7:00 AM CAGE MAKER MACHINE) Patholo gist Method Time Signature Sodium 139 133 - 144 12/25/2016 [facility] mmol/L 8:13 AM [facility] Potassium 3.8 3.4 - 5.3 12/25/2016 [facility] mmol/L 8:13 AM [facility] Chloride 108 94 - 109 12/25/2016 [facility] mmol/L 8:13 AM [facility] Carbon Dioxide 21 20 - 32 12/25/2016 [facility] mmol/L 8:13 AM [facility] Anion Gap 10 3 - 14 12/25/2016 [facility] mmol/L 8:13 AM [facility] Glucose 133 (H) 70 - 99 12/25/2016 [facility] mg/dL 8:13 AM [facility] Urea Nitrogen 5 (L) 7 - 30 12/25/2016 [facility] mg/dL 8:13 AM [facility] Creatinine 0.51 (L) 0.52 - 12/25/2016 [facility] 1.04 mg/dL 8:13 AM [facility] GFR Estimate >90 >60 12/25/2016 [facility] mL/min/1.7 8:[address] Comment: Non GFR Calc GFR Estimate If >90 >60 mL/min/1.7m2 12/25/2016 8:13 A M [facility] Black [facility] Comment: GFR Calc Calcium 7.6 (L) 8.5 - 10.1 mg/dL 12/25/2016 8:13 AM [facility] Specimen Anatomical Collection Method Collection Time Receive d Time (Source) Location / / Volume Laterality Blood specimen 12/25/2016 7:00 AM 017 7:07 (specimen) CAGE MAKER MACHINE AM CAGE MAKER MACHINE Petrona Barone DO LAB - BLOOD ORDERABLES Performing Organization Address City/[facility]/ZIP Code Phon e Number [address] [address] [facility] Fibrinogen activity (12/25/2016 7:00 AM CAGE MAKER MACHINE) P athologist Signature Fibrinogen 398 200 - 420 12/25/2016 [facility] mg/dL 7:58 AM [facility] Specimen Anatomical Collection Method Collection Time Receive d Time (Source) Location / / Volume Laterality Blood specimen 12/25/2016 7:00 AM 017 7:07 (specimen) CAGE MAKER MACHINE AM CAGE MAKER MACHINE Petrona Barone DO LAB - BLOOD ORDERABLES Performing Organization Address City/State/ZIP Code Phon e Number [address] [address] [facility] Partial thromboplastin time (12/25/2016 7:00 AM CAGE MAKER MACHINE) P athologist Signature PTT 28 22 - 37 sec 12/25/2016 [facility] 7:58 AM [facility] Specimen Anatomical Collection Method Collection Time Receive d Time (Source) Location / / Volume Laterality Blood specimen 12/25/2016 7:00 AM 017 7:07 (specimen) CAGE MAKER MACHINE AM CAGE MAKER MACHINE Petrona Barone DO LAB - BLOOD ORDERABLES Performing Organization Address City/[facility]/ZIP Code Phon e Number [address] [address] [facility] INR (12/25/2016 7:00 AM CAGE MAKER MACHINE) P athologist Signature INR 1.06 0.86 - 1.14 12/25/2016 [facility] 7:58 AM [facility] Specimen Anatomical Collection Method Collection Time Receive d Time (Source) Location / / Volume Laterality Blood specimen 12/25/2016 7:00 AM 11/08/2 017 7:07 (specimen) CAGE MAKER MACHINE AM CAGE MAKER MACHINE Petrona Barone DO LAB - BLOOD ORDERABLES Performing Organization Address City/State/ZIP Code Phon e Number [address] [address] [facility] (ABNORMAL) CBC with platelets (12/25/2016 7:00 AM CAGE MAKER MACHINE) Patholo gist Method Time Signature WBC 12.7 (H) 4.0 - 11.0 12/25/2016 [facility] 10e9/L 7:51 AM [facility] RBC Count 4.05 3.8 - 5.2 12/25/2016 [facility] 10e12/L 7:51 AM [facility] Hemoglobin 11.5 (L) 11.7 - 12/25/2016 [facility] 15.7 g/dL 7:51 AM [facility] Hematocrit 33.8 (L) 35.0 - 12/25/2016 [facility] 47.0 % 7:51 AM [facility] MCV 84 78 - 100 12/25/2016 [facility] fl 7:51 AM [facility] MCH 28.4 26.5 - 12/25/2016 [facility] 33.0 pg 7:51 AM [facility] MCHC 34.0 31.5 - 12/25/2016 [facility] 36.5 g/dL 7:51 AM [facility] RDW 14.0 10.0 - 12/25/2016 [facility] 15.0 % 7:51 AM [facility] Platelet Count 160 150 - 450 12/25/2016 [facility] 10e9/L 7:51 AM [facility] Specimen Anatomical Collection Method Collection Time Receive d Time (Source) Location / / Volume Laterality Blood specimen 12/25/2016 7:00 AM 017 7:07 (specimen) CAGE MAKER MACHINE AM CAGE MAKER MACHINE Petrona Barone DO LAB - BLOOD ORDERABLES Performing Organization Address City/[facility]/ZIP Code Phon e Number [address] [address] [facility] Partial thromboplastin time (12/25/2016 12:54 AM CAGE MAKER MACHINE) P athologist Signature PTT 28 22 - 37 sec 12/25/2016 [facility] 1:52 AM [facility] Specimen Anatomical Collection Method Collection Time Receive d Time (Source) Location / / Volume Laterality Blood specimen 12/25/2016 12:54 7 1:10 (specimen) AM CAGE MAKER MACHINE AM CAGE MAKER MACHINE Nora Torres MD LAB - BLOOD ORDERABLES Performing Organization Address City/[facility]/ZIP Code Phon e Number [address] [address] [facility] INR (12/25/2016 12:54 AM CAGE MAKER MACHINE) P athologist Signature INR 1.11 0.86 - 1.14 12/25/2016 [facility] 1:52 AM [facility] Specimen Anatomical Collection Method Collection Time Receive d Time (Source) Location / / Volume Laterality Blood specimen 12/25/2016 12:54 7 1:10 (specimen) AM CAGE MAKER MACHINE AM CAGE MAKER MACHINE Nora Torres MD LAB - BLOOD ORDERABLES Performing Organization Address City/[facility]/ZIP Code Phon e Number [address] [address] [facility] Fibrinogen activity (12/25/2016 12:54 AM CAGE MAKER MACHINE) P athologist Signature Fibrinogen 338 200 - 420 12/25/2016 [facility] mg/dL 1:52 AM [facility] Specimen Anatomical Collection Method Collection Time Receive d Time (Source) Location / / Volume Laterality Blood specimen 12/25/2016 12:54 7 1:10 (specimen) AM CAGE MAKER MACHINE AM CAGE MAKER MACHINE Nora Torres MD LAB - BLOOD ORDERABLES Performing Organization Address City/[facility] Phon e Number [address] [address] [facility] (ABNORMAL) CBC with platelets (12/25/2016 12:54 AM CAGE MAKER MACHINE) Analysis Performed At Patho logist Time Signature WBC 11.0 4.0 - 11.0 12/25/2016 [facility] 10e9/L 1:42 AM [facility] RBC Count 4.22 3.8 - 5.2 12/25/2016 [facility] 10e12/L 1:42 AM [facility] Hemoglobin 12.2 11.7 - 12/25/2016 [facility] 15.7 g/dL 1:42 AM [facility] Hematocrit 35.9 35.0 - 12/25/2016 [facility] 47.0 % 1:42 AM [facility] MCV 85 78 - 100 12/25/2016 [facility] fl 1:42 AM [facility] MCH 28.9 26.5 - 12/25/2016 [facility] 33.0 pg 1:42 AM [facility] MCHC 34.0 31.5 - 12/25/2016 [facility] 36.5 g/dL 1:42 AM [facility] RDW 13.6 10.0 - 12/25/2016 [facility] 15.0 % 1:42 AM [facility] Platelet Count 149 (L) 150 - 450 12/25/2016 [facility] 10e9/L 1:42 AM [facility] Specimen Anatomical Collection Method Collection Time Receive d Time (Source) Location / / Volume Laterality Blood specimen 12/25/2016 12:54 7 1:10 (specimen) AM CAGE MAKER MACHINE AM CAGE MAKER MACHINE Nora Torres MD LAB - BLOOD ORDERABLES Performing Organization Address City/State/ZIP Code Phon e Number [facility] [address] [place] [address] [facility] (ABNORMAL) Basic metabolic panel (12/25/2016 12:54 AM CAGE MAKER MACHINE) Analysis Performed At Patho logist Time Signature Sodium 142 133 - 144 12/25/2016 [facility] mmol/L 1:49 AM [facility] Potassium 4.0 3.4 - 5.3 12/25/2016 [facility] mmol/L 1:49 AM [facility] Chloride 113 (H) 94 - 109 12/25/2016 [facility] mmol/L 1:49 AM [facility] Carbon Dioxide 22 20 - 32 12/25/2016 [facility] mmol/L 1:49 AM [facility] Anion Gap 7 3 - 14 12/25/2016 [facility] mmol/L 1:49 AM [facility] Glucose 147 (H) 70 - 99 12/25/2016 [facility] mg/dL 1:49 AM [facility] Urea Nitrogen 6 (L) 7 - 30 12/25/2016 [facility] mg/dL 1:49 AM [facility] Creatinine 0.54 0.52 - 12/25/2016 [facility] 1.04 mg/dL 1:49 AM [facility] GFR Estimate >90 >60 12/25/2016 [facility] mL/min/1.7 1:[address] Comment: Non GFR Calc GFR Estimate If >90 >60 mL/min/1.7m2 12/25/2016 1:49 A M [facility] Black [facility] Comment: GFR Calc Calcium 8.0 (L) 8.5 - 10.1 mg/dL 12/25/2016 1:49 AM [facility] Specimen Anatomical Collection Method Collection Time Receive d Time (Source) Location / / Volume Laterality Blood specimen 12/25/2016 12:54 7 1:10 (specimen) AM CAGE MAKER MACHINE AM CAGE MAKER MACHINE Nora Torres MD LAB - BLOOD ORDERABLES Performing Organization Address City/State/ZIP Code Phon e Number [facility] [address] [place] [address] [facility] XR Abdomen Port 1 View (12/24/2016 11:10 PM CAGE MAKER MACHINE) Anatomical Region Laterality Modality Abdomen/Pelvis Computed Radiography Specimen (Source) Anatomical Location Collection Method / Collectio n Time Received Time / Laterality Volume Impressions 12/24/2016 11:52 PM CAGE MAKER MACHINE IMPRESSION: No radiopaque foreign objects are present in the visualized portion of the abdomen and pe lvis. CHEIKH COURTNEY MD Narrative 12/24/2016 11:52 PM CAGE MAKER MACHINE ABDOMEN SINGLE VIEW ??12/24/2016 11:10 PM HISTORY: [...] of the abdomen and pe lvis. CHEIKH COURTENY MD Petrona Barone DO IMG DIAGNOSTIC IMAGING ORDER JEFFERY Blood component (12/24/2016 10:59 PM CAGE MAKER MACHINE) Component Value Ref Test Analysis Performed At [facility] gist Range Method Time Signature Unit Number [id number] 12/24/2016 [facility] 11:06 PM [facility] Blood 5 cryoprecipitate 12/24/2016 [facility] Component units pooled 11:06 PM [facility] MEDICAL Type [facility] Division 00 12/24/2016 [facility] Number 11:06 PM [facility] Status of Released to care 12/24/2016 [facility] F Unit unit 11:58 PM [facility] Blood [id number] 12/24/2016 [facility] Product Code 11:06 PM [facility] Unit Status [facility] Specimen Anatomical Collection Method Collection Time Receive d Time (Source) Location / / Volume Laterality 12/24/2016 10:59 12/24/2016 PM CAGE MAKER MACHINE 11:04 PM CAGE MAKER MACHINE Nora Leyva MD LABORATORY Performing Organization Address City/State/ZIP Code Phon e Number [facility] [address] [place], [place] [phone] [place] [address] [address] [place] [address] [facility] (ABNORMAL) Arterial Panel (12/24/2016 10:45 PM CAGE MAKER MACHINE) [facility] Method Time Signature pH Arterial 7.35 7.35 - 12/24/2016 [facility] 7.45 pH 10:57 PM [facility] pCO2 Arterial 36 35 - 45 mm 12/24/2016 [facility] Hg 10:57 PM [facility] pO2 Arterial 207 (H) 80 - 105 12/24/2016 [facility] mm Hg 10:57 PM [facility] Bicarbonate 20 (L) 21 - 28 12/24/2016 [facility] mmol/L 10:57 PM [facility] Base Deficit Art 4.9 mmol/L 12/24/2016 [facility] F 10:57 PM [facility] Comment: Reference range: -9.0 to 1.8 FIO2 50 12/24/2016 10:50 PM [facility] Sodium 135 133 - 144 12/24/2016 10:57 PM [facility] mmol/L [facility] Potassium 4.0 3.4 - 5.3 12/24/2016 10:57 PM [facility] mmol/L [facility] Hemoglobin 10.1 (L) 11.7 - 15.7 12/24/2016 10:57 PM [facility] [place] g/dL [facility] Glucose 161 (H) 70 - 99 mg/dL 12/24/2016 10:57 PM [facility] Calcium Ionized 5.1 4.4 - 5.2 12/24/2016 10:57 PM [facility] [place] Whole Blood mg/dL [facility] Specimen Anatomical Collection Method Collection Time Receive d Time (Source) Location / / Volume Laterality 12/24/2016 10:45 12/24/2016 PM CAGE MAKER MACHINE 10:49 PM CAGE MAKER MACHINE Nora Leyva MD LAB - BLOOD ORDERABLES Performing Organization Address City/State/ZIP Code Phon e Number [facility] [address] [place] [address] [facility] Surgical pathology exam (12/24/2016 10:13 PM CAGE MAKER MACHINE) Component Value Ref Test Analysis Performed Pathologis t Range Method Time At Signature Copath Patient Name: DEANN KING Report MR#: [id number] Specimen #: [id number] Collected: 12/24/2016 Received: 12/25/2016 Reported: 12/31/2016 10:03 [...] Electronically signed out by: Moshe Isaac M.D., [facility] CLINICAL HISTORY: 36-year-old admitted at 27-1/7 [...] fundus to cervix, 8.0 cm anterior to watermaster ior, and 9.5 cm cornu to cornu. [...] endometrium is irregular-shaped. No masses are identified. [employer] sections are submitted. Summary of Sections: A1 [...] fallopian tube wi th a pin-point lumen. [employer] sections are submitted in ca ssette B1. [...] fallopian tube wi th a pin-point lumen. [employer] sections are submitted in ca ssette C1. [...] measuring 2.0 x 2.0 x 1.2 cm. [employer] sections are submitted as follows: Summary of [...] section submitted as possible thrombus at [facility] shows a remote retroplacental hematoma. CPT Codes: A: 72177-WU5, 46186-LXG, 18665-GZL B: 22578-RG1 C: 40846-HQ5 D: 21451-UF1 TESTING LAB LOCATION: [facility], [address] [place] [id number] COLLECTION SITE: Client: [facility] Location: [id number] (B) Specimen (Source) Anatomical Collection Method Collection Time Re ceived Time Location / / Volume Laterality Tissue specimen UTERUS AND CERVIX, 12/24/2016 10:13 (specimen) CS / Unknown PM CAGE MAKER MACHINE Tissue specimen STRUCTURE OF RIGHT 12/24/2016 10:14 (specimen) FALLOPIAN TUBE / PM CAGE MAKER MACHINE Unknown Tissue specimen STRUCTURE OF LEFT 12/24/2016 10:14 (specimen) FALLOPIAN TUBE / PM CAGE MAKER MACHINE Unknown So Nunez MD LAB - BEAKER AP Performing Organization Address City/State/ZIP Code Phon e Number [place] Partial thromboplastin time (12/24/2016 9:50 PM CAGE MAKER MACHINE) P athologist Signature PTT 33 22 - 37 sec 12/24/2016 [facility] 10:05 PM [facility] Specimen Anatomical Collection Method Collection Time Receive d Time (Source) Location / / Volume Laterality 12/24/2016 9:50 PM 7 9:52 CAGE MAKER MACHINE PM CAGE MAKER MACHINE Nora Leyva MD LAB - BLOOD ORDERABLES Performing Organization Address City/State/ZIP Code Phon e Number [address] (ABNORMAL) INR (12/24/2016 9:50 PM CAGE MAKER MACHINE) P athologist Signature INR 1.50 (H) 0.86 - 1.14 12/24/2016 [facility] 10:05 PM [facility] Specimen Anatomical Collection Method Collection Time Receive d Time (Source) Location / / Volume Laterality 12/24/2016 9:50 PM 7 9:52 CAGE MAKER MACHINE PM CAGE MAKER MACHINE Nora Leyva MD LAB - BLOOD ORDERABLES Performing Organization Address City/[facility]/ZIP Code Phon e Number [address] (ABNORMAL) Fibrinogen activity (12/24/2016 9:50 PM CAGE MAKER MACHINE) P athologist Signature Fibrinogen 189 (L) 200 - 420 12/24/2016 [facility] mg/dL 10:05 PM [facility] Specimen Anatomical Collection Method Collection Time Receive d Time (Source) Location / / Volume Laterality 12/24/2016 9:50 PM 7 9:52 CAGE MAKER MACHINE PM CAGE MAKER MACHINE Nora Leyva MD LAB - BLOOD ORDERABLES Performing Organization Address City/State/ZIP Code Phon e Number [place] [phone] [facility] (ABNORMAL) CBC with platelets (12/24/2016 9:50 PM CAGE MAKER MACHINE) [facility] gist Method Time Signature WBC 10.3 4.0 - 11.0 12/24/2016 [facility] 10e9/L 9:58 PM [facility] RBC Count 2.61 (L) 3.8 - 5.2 12/24/2016 [facility] 10e12/L 9:58 PM [facility] Hemoglobin 7.5 (L) 11.7 - 12/24/2016 [facility] 15.7 g/dL 9:58 PM [facility] Hematocrit 23.1 (L) 35.0 - 12/24/2016 [facility] 47.0 % 9:58 PM [facility] MCV 89 78 - 100 12/24/2016 [facility] fl 9:58 PM [facility] MCH 28.7 26.5 - 12/24/2016 [facility] 33.0 pg 9:58 PM [facility] MCHC 32.5 31.5 - 12/24/2016 [facility] 36.5 g/dL 9:58 PM [facility] RDW 14.5 10.0 - 12/24/2016 [facility] 15.0 % 9:58 PM [facility] Platelet Count 105 (L) 150 - 450 12/24/2016 [facility] 10e9/L 9:58 PM [facility] Specimen Anatomical Collection Method Collection Time Receive d Time (Source) Location / / Volume Laterality 12/24/2016 9:50 PM 7 9:52 CAGE MAKER MACHINE PM CAGE MAKER MACHINE Nora Leyva MD LAB - BLOOD ORDERABLES Performing Organization Address City/State/ZIP Code Phon e Number [facility] [address] [place] [address] [facility] (ABNORMAL) Arterial Panel (12/24/2016 9:50 PM CAGE MAKER MACHINE) [facility] Method Time Signature pH Arterial 7.31 (L) 7.35 - 12/24/2016 [facility] 7.45 pH 9:58 PM [facility] pCO2 Arterial 38 35 - 45 12/24/2016 [facility] mm Hg 9:58 PM [facility] pO2 Arterial 197 (H) 80 - 105 12/24/2016 [facility] mm Hg 9:58 PM [facility] Bicarbonate 19 (L) 21 - 28 12/24/2016 [facility] Arterial mmol/L 9:58 PM [facility] Base Deficit Art 6.8 mmol/L 12/24/2016 [facility] F 9:58 PM [facility] Comment: Reference range: -9.0 to 1.8 FIO2 50 12/24/2016 9:54 PM [facility] Sodium 137 133 - 144 12/24/2016 9:58 PM [facility] mmol/L [facility] Potassium 3.7 3.4 - 5.3 12/24/2016 9:58 PM [facility] mmol/L [facility] Hemoglobin 7.5 (L) 11.7 - 15.7 12/24/2016 9:58 PM [facility] [place] g/dL [facility] Glucose 155 (H) 70 - 99 mg/dL 12/24/2016 9:58 PM [facility] Calcium Ionized 4.6 4.4 - 5.2 12/24/2016 9:58 PM [facility] [place] Whole Blood mg/dL [facility] Specimen Anatomical Collection Method Collection Time Receive d Time (Source) Location / / Volume Laterality 12/24/2016 9:50 PM 7 9:52 CAGE MAKER MACHINE PM CAGE MAKER MACHINE Nora Leyva MD LAB - BLOOD ORDERABLES Performing Organization Address City/State/ZIP Code Phon e Number [facility] [address] [place] [address] [facility] (ABNORMAL) Arterial Panel (12/24/2016 9:20 PM [facility]) [facility] gist Method Time Signature pH Arterial 7.31 (L) 7.35 - 12/24/2016 [facility] 7.45 pH 9:28 PM [facility] pCO2 Arterial 40 35 - 45 12/24/2016 [facility] mm Hg 9:28 PM [facility] pO2 Arterial 191 (H) 80 - 105 12/24/2016 [facility] mm Hg 9:28 PM [facility] Bicarbonate 20 (L) 21 - 28 12/24/2016 [facility] Arterial mmol/L 9:28 PM [facility] Base Deficit Art 5.8 mmol/L 12/24/2016 [facility] F 9:28 PM [facility] Comment: Reference range: -9.0 to 1.8 FIO2 50% 12/24/2016 9:26 PM [facility] Sodium 136 133 - 144 12/24/2016 9:28 PM [facility] mmol/L [facility] Potassium 3.9 3.4 - 5.3 12/24/2016 9:28 PM [facility] mmol/L [facility] Hemoglobin 8.7 (L) 11.7 - 15.7 12/24/2016 9:28 PM [facility] g/dL [facility] Glucose 165 (H) 70 - 99 mg/dL 12/24/2016 9:28 PM [facility] Calcium Ionized 4.4 4.4 - 5.2 12/24/2016 9:28 PM [facility] Whole Blood mg/dL [facility] [facility] Specimen Anatomical Collection Method Collection Time Receive d Time (Source) Location / / Volume Laterality 12/24/2016 9:20 PM 7 9:25 CAGE MAKER MACHINE PM CAGE MAKER MACHINE Nora Leyva MD LAB - BLOOD ORDERABLES Performing Organization Address City/State/ZIP Code Phon e Number [facility] [address] [place] [address] [facility] Blood component (12/24/2016 8:45 PM CAGE MAKER MACHINE) [facility] gist Method Time Signature Unit Number [id number] 12/24/2016 [facility] 7 10:07 PM [facility] Blood PlateletPher 12/24/2016 [facility] Component esis,LeukoRe 10:07 PM [facility] MEDICAL Type d Irrad [facility] (Part 2) BANK Division 00 12/24/2016 [facility] Number 10:07 PM [facility] Status of Released to 12/24/2016 [facility] Unit care unit 11:58 PM [facility] Blood Product [id number] 12/24/2016 [facility] Code 10:07 PM [facility] Unit Status [facility] Specimen Anatomical Collection Method Collection Time Receive d Time (Source) Location / / Volume Laterality 12/24/2016 8:45 PM 7 8:50 CAGE MAKER MACHINE PM CAGE MAKER MACHINE Nora Leyva MD LABORATORY Performing Organization Address City/State/ZIP Code Phon e Number [facility] [address] [place] [address] [address] [facility] Blood component (12/24/2016 8:45 PM CAGE MAKER MACHINE) [facility] Method Time Signature Unit Number [id number] 12/24/2016 [facility] 2 8:52 PM CAGE MAKER MACHINE [facility] BANK Blood PlateletPher 12/24/2016 [facility] Component esis,LeukoRe 8:52 PM CAGE MAKER MACHINE [facility] WEST (Part 2) BANK Division 00 12/24/2016 [facility] Number 8:52 PM CAGE MAKER MACHINE [facility] BANK Status of Released to 12/24/2016 [facility] OF Unit care unit 11:58 PM CAGE MAKER MACHINE [facility] Blood Product [id number] 12/24/2016 [facility] Code 8:52 PM [facility] Unit Status [facility] Specimen Anatomical Collection Method Collection Time Receive d Time (Source) Location / / Volume Laterality 12/24/2016 8:45 PM 7 8:50 CAGE MAKER MACHINE PM CAGE MAKER MACHINE Nora Leyva MD LABORATORY Performing Organization Address City/State/ZIP Code Phon e Number [facility] [address] [place] [address] [address] [facility] Platelets prepare order unit (12/24/2016 8:45 PM CAGE MAKER MACHINE) [facility] Method Time Signature Blood PLT Pheresis 12/24/2016 [facility] 8:50 PM CAGE MAKER MACHINE [facility] WEST BANK Units Ordered 2 12/24/2016 [facility] OF 10:07 PM [facility] Specimen Anatomical Collection Method Collection Time Receive d Time (Source) Location / / Volume Laterality 12/24/2016 8:45 PM 7 8:50 CAGE MAKER MACHINE PM CAGE MAKER MACHINE Nora Leyva MD BLOOD BANK PRODUCT ORDERABLE S Performing Organization Address City/State/ZIP Code Phon e Number [address] [address] [facility] Partial thromboplastin time (12/24/2016 8:44 PM CAGE MAKER MACHINE) P athologist Signature PTT 30 22 - 37 sec 12/24/2016 [facility] 9:05 PM [facility] Specimen Anatomical Collection Method Collection Time Receive d Time (Source) Location / / Volume Laterality 12/24/2016 8:44 PM 7 8:51 CAGE MAKER MACHINE PM CAGE MAKER MACHINE Nora Leyva MD LAB - BLOOD ORDERABLES Performing Organization Address City/State/ZIP Code Phon e Number [address] [address] [facility] (ABNORMAL) INR (12/24/2016 8:44 PM CAGE MAKER MACHINE) P athologist Signature INR 1.16 (H) 0.86 - 1.14 12/24/2016 UN[facility]ERSITY 9:05 PM [facility] Specimen Anatomical Collection Method Collection Time Receive d Time (Source) Location / / Volume Laterality 12/24/2016 8:44 PM 7 8:51 CAGE MAKER MACHINE PM CAGE MAKER MACHINE Nora Leyva MD LAB - BLOOD ORDERABLES Performing Organization Address City/[facility]/ZIP Code Phon e Number [address] [address] [facility] Fibrinogen activity (12/24/2016 8:44 PM CAGE MAKER MACHINE) P athologist Signature Fibrinogen 328 200 - 420 12/24/2016 [facility] mg/dL 9:05 PM [facility] Specimen Anatomical Collection Method Collection Time Receive d Time (Source) Location / / Volume Laterality 12/24/2016 8:44 PM 7 8:51 CAGE MAKER MACHINE PM CAGE MAKER MACHINE Nora Leyva MD LAB - BLOOD ORDERABLES Performing Organization Address City/[facility]/ZIP Code Phon e Number [address] [address] [facility] (ABNORMAL) CBC with platelets (12/24/2016 8:44 PM CAGE MAKER MACHINE) Patholo gist Method Time Signature WBC 5.8 4.0 - 11.0 12/24/2016 [facility] 10e9/L 9:16 PM [facility] RBC Count 2.70 (L) 3.8 - 5.2 12/24/2016 [facility] 10e12/L 9:16 PM [facility] Hemoglobin 7.7 (L) 11.7 - 12/24/2016 [facility] 15.7 g/dL 9:16 PM [facility] Hematocrit 24.0 (L) 35.0 - 12/24/2016 [facility] 47.0 % 9:16 PM [facility] MCV 89 78 - 100 12/24/2016 [facility] OF fl 9:16 PM [facility] MCH 28.5 26.5 - 12/24/2016 [facility] 33.0 pg 9:16 PM [facility] MCHC 32.1 31.5 - 12/24/2016 [facility] 36.5 g/dL 9:16 PM [facility] RDW 16.4 (H) 10.0 - 12/24/2016 [facility] 15.0 % 9:16 PM [facility] Platelet Count 156 150 - 450 12/24/2016 [facility] OF 10e9/L 9:16 PM [facility] Specimen Anatomical Collection Method Collection Time Receive d Time (Source) Location / / Volume Laterality 12/24/2016 8:44 PM 7 8:51 CAGE MAKER MACHINE PM CAGE MAKER MACHINE Nora Leyva MD LAB - BLOOD ORDERABLES Performing Organization Address City/State/ZIP Code Phon e Number [facility] [address] [place] [address] [facility] (ABNORMAL) Arterial Panel (12/24/2016 8:44 PM [facility]) [facility] gist Method Time Signature pH Arterial 7.29 (L) 7.35 - 12/24/2016 [facility] 7.45 pH 8:56 PM [facility] pCO2 Arterial 41 35 - 45 12/24/2016 [facility] mm Hg 8:56 PM [facility] pO2 Arterial 355 (H) 80 - 105 12/24/2016 [facility] mm Hg 8:56 PM [facility] Bicarbonate 20 (L) 21 - 28 12/24/2016 [facility] Arterial mmol/L 8:56 PM [facility] Base Deficit Art 6.1 mmol/L 12/24/2016 [facility] O F 8:56 PM [facility] Comment: Reference range: -9.0 to 1.8 FIO2 100% 12/24/2016 8:53 PM [facility] Sodium 137 133 - 144 12/24/2016 8:56 PM [facility] mmol/L [facility] Potassium 3.6 3.4 - 5.3 12/24/2016 8:56 PM [facility] mmol/L [facility] Hemoglobin 7.6 (L) 11.7 - 15.7 12/24/2016 8:56 PM [facility] [place] g/dL [facility] Glucose 160 (H) 70 - 99 mg/dL 12/24/2016 8:56 PM [facility] Calcium Ionized 4.1 (L) 4.4 - 5.2 12/24/2016 8:56 PM [facility] [place] Whole Blood mg/dL [facility] BANK Specimen Anatomical Collection Method Collection Time Receive d Time (Source) Location / / Volume Laterality 12/24/2016 8:44 PM 7 8:51 CAGE MAKER MACHINE PM CAGE MAKER MACHINE Nora Leyva MD LAB - BLOOD ORDERABLES Performing Organization Address City/State/ZIP Code Phon e Number [facility] [address] [place] [address] [facility] (ABNORMAL) Arterial Panel (12/24/2016 8:25 PM CAGE MAKER MACHINE) [facility] Method Time Signature pH Arterial 7.30 (L) 7.35 - 12/24/2016 [facility] 7.45 pH 8:33 PM [facility] pCO2 Arterial 40 35 - 45 12/24/2016 [facility] mm Hg 8:33 PM [facility] pO2 Arterial 195 (H) 80 - 105 12/24/2016 [facility] mm Hg 8:33 PM [facility] Bicarbonate 19 (L) 21 - 28 12/24/2016 [facility] Arterial mmol/L 8:33 PM [facility] Base Deficit Art 6.6 mmol/L 12/24/2016 [facility] O F 8:33 PM [facility] Comment: Reference range: -9.0 to 1.8 FIO2 100% 12/24/2016 8:29 PM [facility] Sodium 135 133 - 144 12/24/2016 8:33 PM [facility] mmol/L [facility] Potassium 4.1 3.4 - 5.3 12/24/2016 8:33 PM [facility] mmol/L [facility] Hemoglobin 8.0 (L) 11.7 - 15.7 12/24/2016 8:33 PM [facility] [place] g/dL [facility] Glucose 136 (H) 70 - 99 mg/dL 12/24/2016 8:33 PM [facility] Calcium Ionized 4.3 (L) 4.4 - 5.2 12/24/2016 8:33 PM [facility] [place] Whole Blood mg/dL [facility] T BANK Specimen Anatomical Collection Method Collection Time Receive d Time (Source) Location / / Volume Laterality 12/24/2016 8:25 PM 7 8:29 CAGE MAKER MACHINE PM CAGE MAKER MACHINE Nora Leyva MD LAB - BLOOD ORDERABLES Performing Organization Address City/[facility]/ZIP Code Phon e Number [address] [address] [facility] Blood component (12/24/2016 7:25 PM CAGE MAKER MACHINE) [facility] JumpCam Method Time Signature Unit Number [id number] 12/24/2016 [facility] 10:10 PM [facility] BANK Blood Plasma, 12/24/2016 [facility] OF Component Thawed 10:10 PM [facility] WEST BANK Division 00 12/24/2016 [facility] Number 10:10 PM [facility] Status of No longer 12/24/2016 [facility] Unit available 11:49 PM [facility] 12/24/2016 [facility] 2349 BANK Blood Product [id number] 12/24/2016 [facility] Code 10:10 PM [facility] Unit Status RET [facility] Specimen Anatomical Collection Method Collection Time Receive d Time (Source) Location / / Volume Laterality 12/24/2016 7:25 PM 7 7:30 CAGE MAKER MACHINE PM CAGE MAKER MACHINE Nora Leyva MD LAB - BLOOD BANK PRODUCT ORD ER Performing Organization Address City/State/ZIP Code Phon e Number [address] [address] [facility] Blood component (12/24/2016 7:25 PM CAGE MAKER MACHINE) [facility] Jump[employer] Method Time Signature Unit Number [id number] 12/24/2016 [facility] 10:10 PM [facility] BANK Blood Plasma, 12/24/2016 [facility] Component Thawed 10:10 PM CAGE MAKER MACHINE [facility] BANK Division 00 12/24/2016 [facility] Number 10:10 PM CAGE MAKER MACHINE [facility] BANK Status of No longer 12/24/2016 [facility] Unit available 11:48 PM CAGE MAKER MACHINE [facility] 12/24/2016 [facility] BANK Blood Product [id number] 12/24/2016 [facility] Code 10:10 PM CAGE MAKER MACHINE [facility] Unit Status RET [facility] Specimen Anatomical Collection Method Collection Time Receive d Time (Source) Location / / Volume Laterality 12/24/2016 7:25 PM 7 7:30 CAGE MAKER MACHINE PM CAGE MAKER MACHINE Nora Leyva MD LAB - BLOOD BANK PRODUCT ORD ER Performing Organization Address City/State/ZIP Code Phon e Number [address] [address] [facility] Blood component (12/24/2016 7:25 PM CAGE MAKER MACHINE) [facility] JumpCam Method Time Signature Unit Number [id number] 12/24/2016 [facility] 9 9:03 PM CAGE MAKER MACHINE [facility] BANK Blood Plasma, 12/24/2016 [facility] Component Thawed 9:03 PM CAGE MAKER MACHINE [facility] BANK Division 00 12/24/2016 [facility] Number 9:03 PM [facility] Status of Released to 12/24/2016 [facility] Unit care unit 11:58 PM CAGE MAKER MACHINE [facility] Blood Product [id number] 12/24/2016 [facility] Code 9:03 PM CAGE MAKER MACHINE [facility] Unit Status [facility] Specimen Anatomical Collection Method Collection Time Receive d Time (Source) Location / / Volume Laterality 12/24/2016 7:25 PM 7 7:30 CAGE MAKER MACHINE PM CAGE MAKER MACHINE Nora Leyva MD LABORATORY Performing Organization Address City/State/ZIP Code Phon e Number [facility] [address] [place] [address] [address] [facility] Blood component (12/24/2016 7:25 PM CAGE MAKER MACHINE) [facility] JumpCam Method Time Signature Unit Number [id number] 12/24/2016 [facility] 7 9:03 PM CAGE MAKER MACHINE [facility] Blood Plasma, 12/24/2016 [facility] Component Thawed 9:03 PM CAGE MAKER MACHINE [facility] WEST BANK Division 00 12/24/2016 [facility] Number 9:03 PM CAGE MAKER MACHINE [facility] BANK Status of Released to 12/24/2016 [facility] Unit care unit 11:58 PM CAGE MAKER MACHINE [facility] Blood Product [id number] 12/24/2016 [facility] Code 9:03 PM CAGE MAKER MACHINE [facility] BANK Unit Status [facility] Specimen Anatomical Collection Method Collection Time Receive d Time (Source) Location / / Volume Laterality 12/24/2016 7:25 PM 7 7:30 CAGE MAKER MACHINE PM CAGE MAKER MACHINE Nora Leyva MD LABORATORY Performing Organization Address City/[facility]/ZIP Code Phon e Number [facility] [address] [place] [address] [address] [facility] Blood component (12/24/2016 7:25 PM CAGE MAKER MACHINE) [employer] Method Time Signature Unit Number [id number] 12/24/2016 [facility] 8:18 PM CAGE MAKER MACHINE [facility] BANK Blood Apheresis 12/24/2016 [facility] Component Plasma Thawed 8:18 PM CAGE MAKER MACHINE [facility] WE[facility] BANK Division 00 12/24/2016 [facility] Number 8:18 PM CAGE MAKER MACHINE [facility] BANK Status of Released to 12/24/2016 [facility] Unit care unit 11:58 PM CAGE MAKER MACHINE [facility] Blood Product [id number] 12/24/2016 [facility] Code 8:18 PM CAGE MAKER MACHINE [facility] BANK Unit Status [facility] Specimen Anatomical Collection Method Collection Time Receive d Time (Source) Location / / Volume Laterality 12/24/2016 7:25 PM 7 7:30 CAGE MAKER MACHINE PM CAGE MAKER MACHINE Nora Leyva MD LABORATORY Performing Organization Address City/State/ZIP Code Phon e Number [facility] [address] [place] [id number] [place] [address] Blood component (12/24/2016 7:25 PM CAGE MAKER MACHINE) [employer] Method Time Signature Unit Number [id number] 12/24/2016 [facility] 5 8:18 PM CAGE MAKER MACHINE [facility] BANK Blood Plasma, 12/24/2016 [facility] Component Thawed 8:18 PM CAGE MAKER MACHINE [facility] BANK Division 00 12/24/2016 [facility] Number 8:18 PM CAGE MAKER MACHINE [facility] BANK Status of Released to 12/24/2016 [facility] Unit care unit 11:58 PM CAGE MAKER MACHINE [facility] Blood Product [id number] 12/24/2016 [facility] Code 8:18 PM CAGE MAKER MACHINE [facility] B[facility] Unit Status [facility] Specimen Anatomical Collection Method Collection Time Receive d Time (Source) Location / / Volume Laterality 12/24/2016 7:25 PM 7 7:30 CAGE MAKER MACHINE PM CAGE MAKER MACHINE Nora Leyva MD LABORATORY Performing Organization Address City/[facility]/ZIP Code Phon e Number [facility] [address] [place] [id number] [place] [address] Blood component (12/24/2016 7:25 PM CAGE MAKER MACHINE) [employer] Method Time Signature Unit Number [id number] 12/24/2016 [facility] 3 8:18 PM CAGE MAKER MACHINE [facility] BANK Blood Plasma, 12/24/2016 [facility] Component Thawed 8:18 PM CAGE MAKER MACHINE [facility] BANK Division 00 12/24/2016 [facility] Number 8:18 PM CAGE MAKER MACHINE [facility] BANK Status of Released to 12/24/2016 [facility] Unit care unit 11:58 PM CAGE MAKER MACHINE [facility] Blood Product [id number] 12/24/2016 [facility] Code 8:18 PM CAGE MAKER MACHINE [facility] B[facility] Unit Status [facility] Specimen Anatomical Collection Method Collection Time Receive d Time (Source) Location / / Volume Laterality 12/24/2016 7:25 PM 7 7:30 CAGE MAKER MACHINE PM CAGE MAKER MACHINE Nora Leyva MD LABORATORY Performing Organization Address City/State/ZIP Code Phon e Number [facility] [address] [place] [phone] [place] [address] Blood component (12/24/2016 7:25 PM CAGE MAKER MACHINE) [employer] Method Time Signature Unit Number [id number] 12/24/2016 [facility] 9 8:18 PM CAGE MAKER MACHINE [facility] BANK Blood Plasma, 12/24/2016 [facility] OF Component Thawed 8:18 PM CAGE MAKER MACHINE [facility] BANK Division 00 12/24/2016 [facility] Number 8:18 PM [facility] Status of Released to 12/24/2016 [facility] Unit care unit 11:58 PM [facility] Blood Product [id number] 12/24/2016 [facility] Code 8:18 PM [facility] Unit Status [facility] Specimen Anatomical Collection Method Collection Time Receive d Time (Source) Location / / Volume Laterality 12/24/2016 7:25 PM 7 7:30 CAGE MAKER MACHINE PM CAGE MAKER MACHINE Nora Leyva MD LABORATORY Performing Organization Address City/[facility]/ZIP Code Phon e Number [facility] [address] [place] [address] [address] [facility] Plasma prepare order unit (12/24/2016 7:25 PM CAGE MAKER MACHINE) P athologist Signature Blood Plasma 12/24/2016 [facility] OF Component Type 7:31 PM [facility] Units Ordered 8 12/24/2016 [facility] OF 10:10 PM [facility] Specimen Anatomical Collection Method Collection Time Receive d Time (Source) Location / / Volume Laterality 12/24/2016 7:25 PM 7 7:30 CAGE MAKER MACHINE PM CAGE MAKER MACHINE Nora Leyva MD BLOOD BANK PRODUCT ORDERABLE S Performing Organization Address City/State/ZIP Code Phon e Number [address] [address] [facility] (ABNORMAL) CBC with platelets differential (12/24/2016 7:06 PM CAGE MAKER MACHINE) Patholo gist Method Time Signature WBC 10.4 4.0 - 12/24/2016 [facility] 11.0 7:11 PM [facility] 10e9/L [facility] RBC Count 2.99 (L) 3.8 - 5.2 12/24/2016 [facility] 10e12/L 7:11 PM [facility] Hemoglobin 9.0 (L) 11.7 - 12/24/2016 [facility] 15.7 g/dL 7:11 PM [facility] Hematocrit 28.5 (L) 35.0 - 12/24/2016 [facility] 47.0 % 7:11 PM [facility] MCV 95 78 - 100 12/24/2016 [facility] OF fl 7:11 PM [facility] MCH 30.1 26.5 - 12/24/2016 [facility] 33.0 pg 7:11 PM [facility] MCHC 31.6 31.5 - 12/24/2016 [facility] 36.5 g/dL 7:11 PM [facility] RDW 16.1 (H) 10.0 - 12/24/2016 [facility] 15.0 % 7:11 PM [facility] Platelet Count 256 150 - 450 12/24/2016 [facility] OF 10e9/L 7:11 PM [facility] Diff Method Automated 12/24/2016 [facility] Method 7:11 PM [facility] % Neutrophils 69.4 % 12/24/2016 [facility] 7:11 PM [facility] % Lymphocytes 21.5 % 12/24/2016 [facility] 7:11 PM [facility] % Monocytes 5.7 % 12/24/2016 [facility] 7:11 PM [facility] % Eosinophils 2.9 % 12/24/2016 [facility] 7:11 PM [facility] % Basophils 0.1 % 12/24/2016 [facility] 7:11 PM [facility] % Immature 0.4 % 12/24/2016 [facility] Granulocytes 7:11 PM [facility] Nucleated RBCs 0 0 /100 12/24/2016 [facility] 7:11 PM [facility] Absolute 7.2 1.6 - 8.3 12/24/2016 [facility] Neutrophil 10e9/L 7:11 PM [facility] Absolute 2.2 0.8 - 5.3 12/24/2016 [facility] Lymphocytes 10e9/L 7:11 PM [facility] Absolute 0.6 0.0 - 1.3 12/24/2016 [facility] Monocytes 10e9/L 7:11 PM [facility] Absolute 0.3 0.0 - 0.7 12/24/2016 [facility] Eosinophils 10e9/L 7:11 PM [facility] Absolute 0.0 0.0 - 0.2 12/24/2016 [facility] Basophils 10e9/L 7:11 PM CAGE MAKER MACHINE [facility] Abs Immature 0.0 0 - 0.4 12/24/2016 [facility] Granulocytes 10e9/L 7:11 PM CAGE MAKER MACHINE [facility] Absolute 0.0 12/24/2016 [facility] Nucleated RBC 7:11 PM [facility] Specimen Anatomical Collection Method Collection Time Receive d Time (Source) Location / / Volume Laterality Blood specimen 12/24/2016 7:06 PM 017 7:07 (specimen) CAGE MAKER MACHINE PM CAGE MAKER MACHINE Kayla Davidson MD LAB - BLOOD ORDERABLES Performing Organization Address City/State/ZIP Code Phon e Number [facility] [address] [place] [address] [facility] Urine Culture Aerobic Bacterial (12/24/2016 7:50 AM CAGE MAKER MACHINE) Component Value Ref Test Analysis Performed At Patholo gist Range Method Time Signature Specimen Midstream Urine INFECTIOUS Description DISEASE DIAGNOSTIC LABORATORY Special Specimen received 12/24/2016 [facility] in preservative 11:03 AM [facility] Culture Micro <10,000 colonies/mL 12/25/2016 INFEC TIOUS mixed urogenital evelina 7:35 AM CAGE MAKER MACHINE [facility] Susceptibility testing not routinely done DIAGNOSTIC LABORATORY Specimen (Source) Anatomical Collection Method Collection Time Re ceived Time Location / / Volume Laterality Examination of 12/24/2016 7:50 12/24/2016 8:46 midstream urine AM CAGE MAKER MACHINE AM CAGE MAKER MACHINE specimen (procedure) Nora Leyva MD LAB - MICRO GENERAL ORDERABL ES Performing Organization Address City/State/ZIP Code Phon e Number INFECTIOUS DISEASES [address] [place] [address] DIAGNOSTIC LABORATORY, [facility] INFECTIOUS DISEASE [address] [place] [address], [facility] DIAGNOSTIC LABORATORY [phone] [place] [address] (ABNORMAL) UA with Microscopic reflex to Culture (12/24/2016 7:50 AM CAGE MAKER MACHINE) Patholo gist Method Time Signature Color Urine Yellow 12/24/2016 [facility] 8:35 AM [facility] Appearance Urine Clear 12/24/2016 [facility] O F 8:35 AM [facility] Glucose Urine Negative NEG^Negat 12/24/2016 [facility] [place] mg/dL 8:35 AM [facility] Bilirubin Urine Negative NEG^Negat 12/24/2016 [facility] [place] 8:35 AM [facility] Ketones Urine Negative NEG^Negat 12/24/2016 [facility] [place] mg/dL 8:35 AM [facility] Specific Danube 1.013 1.003 - 12/24/2016 UN[facility]ITY O F Urine 1.035 8:35 AM [facility] Blood Urine Moderate (A) NEG^Negat 12/24/2016 [facility] [place]ula 8:35 AM [facility] pH Urine 6.5 5.0 - 7.0 12/24/2016 [facility] pH 8:35 AM [facility] Protein Albumin Negative NEG^Negat 12/24/2016 [facility] Urine [place] mg/dL 8:35 AM [facility] Urobilinogen Normal 0.0 - 2.0 12/24/2016 [facility] mg/dL mg/dL 8:35 AM [facility] Nitrite Urine Negative NEG^Negat 12/24/2016 [facility] [place] 8:35 AM [facility] Leukocyte Large (A) NEG^Negat 12/24/2016 [facility] Esterase Urine [place] 8:35 AM [facility] Source Midstream 12/24/2016 [facility] Urine 8:06 AM [facility] WBC Urine 24 (H) 0 - 2 12/24/2016 [facility] /HPF 8:37 AM [facility] RBC Urine 34 (H) 0 - 2 12/24/2016 [facility] /HPF 8:37 AM [facility] Bacteria Urine Few (A) NEG^Negat 12/24/2016 [facility] [place] /HPF 8:37 AM [facility] Squamous 2 (H) 0 - 1 12/24/2016 [facility] Epithelial /HPF /HPF 8:37 AM [facility] Transitional Epi <1 0 - 1 12/24/2016 [facility] F /HPF 8:37 AM [facility] Specimen (Source) Anatomical Collection Method Collection Time Re ceived Time Location / / Volume Laterality Examination of URINE SPECIMEN 12/24/2016 7:50 12/25/19 17 8:05 midstream urine OBTAINED BY CLEAN AM CAGE MAKER MACHINE AM CAGE MAKER MACHINE specimen CATCH PROCEDURE / (procedure) Unknown Petrona Barone DO LAB - URINE ORDERABLES Performing Organization Address City/[facility]/ZIP Code Phon e Number [address] [address] [facility] (ABNORMAL) Wet prep (12/23/2016 11:53 PM CAGE MAKER MACHINE) Component Value Ref Test Analysis Performed At [facility] Range Method Time Signature Specimen Vagina [facility] Description [facility] Wet Prep No motile 12/24/2016 [facility] OF Trichomonas 12:21 AM [place] [facility] seen [facility] Wet Prep Rare 12/24/2016 [facility] OF Yeast seen 12:21 AM [facility] Wet Prep Moderate 12/24/2016 [facility] OF PMNs seen 12:21 AM [facility] Wet Prep No clue cells 12/24/2016 [facility] OF seen 12:21 AM [facility] Specimen Anatomical Collection Method Collection Time Receive d Time (Source) Location / / Volume Laterality Specimen from 12/23/2016 11:53 12/24/2016 vagina PM CAGE MAKER MACHINE 12:10 AM CAGE MAKER MACHINE (specimen) Petrona Barone DO LAB - MICRO GENERAL ORDERABL ES Performing Organization Address [facility]/ZIP Code Phon e Number [address] [address] [facility] Maternal BPP Single (12/23/2016 8:37 AM CAGE MAKER MACHINE) Anatomical Region Laterality Modality Ultrasound Specimen (Source) Anatomical Collection Method Collection Time Re ceived Time Location / / Volume Laterality 12/23/2016 8:05 AM CAGE MAKER MACHINE Impressions 12/23/2016 11:10 AM CAGE MAKER MACHINE IMPRESSION 1) Intrauterine at 29 3/7 week s gestational age. 2) The BPP is reassuring. 3) The amniotic fluid volume low consist ent with known PPROM. 4) There is a complete posterior/lateral placenta previa. Narrative 12/23/2016 11:10 AM CAGE MAKER MACHINE BPP Pat. Name: DEANN KING Study Date: 8:05am Pat. NO: [id number] Referring ??MD: CHRIST LOZADA Site: [facility] Fleet Operations Manager: Jay Lu : 1980 Age: 36 INDICATION Premature Rupture of Membranes ( PPROM) Complete previa. METHOD [facility] ANTEPARTUM inpatient exam, Transabd ominal ultrasound examination. [...] Pat. Name:Elizabeth KING Date:12/23 8:05am Pat. NO: [id number] MD:CHRIST BHAT ON [facility]Yesenia Sen RDMS :1980Age:36 INDICATION Premature Rupture of Membranes ( PPROM) Complete previa. METHOD [facility] ANTEPARTUM inpatient exam, Transabd ominal ultrasound examination. [...] complete posterior/lateral placenta previa. Lashawn Patel MD [facility] US ORDERABLES Blood component (12/23/2016 6:54 AM CAGE MAKER MACHINE) [employer] Method Time Signature Unit Number [id number] 12/24/2016 UN[facility]ERSITY OF 9:49 PM CAGE MAKER MACHINE [facility] Blood Red Blood 12/24/2016 UN[facility]ITY OF Component Cells 9:49 PM CAGE MAKER MACHINE [facility] BANK Division 00 12/24/2016 [facility] OF Number 9:49 PM [facility] Status of Released to 12/24/2016 [facility]ITY OF Unit care unit 11:58 PM [facility] Blood Product [id number] 12/24/2016 UN[facility] OF Code 9:49 PM [facility] Unit Status [facility] Specimen Anatomical Collection Method Collection Time Receive d Time (Source) Location / / Volume Laterality 12/23/2016 6:54 AM 7 6:55 CAGE MAKER MACHINE AM CAGE MAKER MACHINE [facility] Performing Organization Address City/State/ZIP Code Phon e Number [facility] [address] [place] [address] [address] [facility] Blood component (12/23/2016 6:54 AM CAGE MAKER MACHINE) [employer] Method Time Signature Unit Number [id number] 12/24/2016 UNIVERSITY OF 9:49 PM [facility] Blood Red Blood 12/24/2016 UN[facility]ITY OF Component Cells 9:49 PM CAGE MAKER MACHINE [facility] Leukocyte [facility] Reduced BANK Division 00 12/24/2016 UN[facility] OF Number 9:49 PM CAGE MAKER MACHINE [facility] B[facility] Status of No longer 12/24/2016 [facility]ITY OF Unit available 11:50 PM CAGE MAKER MACHINE [facility] 12/24/2016 [facility] [place] BANK Blood Product [id number] 12/24/2016 [facility] OF Code 9:49 PM CAGE MAKER MACHINE [facility] B[facility] Unit Status RET [facility] Specimen Anatomical Collection Method Collection Time Receive d Time (Source) Location / / Volume Laterality 12/23/2016 6:54 AM 7 6:55 CAGE MAKER MACHINE AM CAGE MAKER MACHINE [facility]ORATORY Performing Organization Address City/State/ZIP Code Phon e Number [address] [address] [facility] Blood component (12/23/2016 6:54 AM CAGE MAKER MACHINE) [facility] Method Time Signature Unit Number [id number] 12/24/2016 UNIVERSITY OF 9:49 PM CAGE MAKER MACHINE [facility] BANK Blood Red Blood 12/24/2016 UN[facility]ITY OF Component Cells 9:49 PM CAGE MAKER MACHINE [facility] Leukocyte [facility] Reduced BANK Division 00 12/24/2016 [facility] OF Number 9:49 PM [facility] BANK Status of Released to 12/24/2016 [facility]ITY OF Unit care unit 11:58 PM [facility] Blood Product [id number] 12/24/2016 [facility]ITY OF Code 9:49 PM [facility] B[facility] Unit Status [facility] Specimen Anatomical Collection Method Collection Time Receive d Time (Source) Location / / Volume Laterality 12/23/2016 6:54 AM 7 6:55 CAGE MAKER MACHINE AM CAGE MAKER MACHINE Nora Mohamud LAB - BLOOD BANK PRODUCT ORD ER Performing Organization Address City/State/ZIP Code Phon e Number [facility] [address] [place] [address] [address] [facility] Blood component (12/23/2016 6:54 AM CAGE MAKER MACHINE) [facility] Method Time Signature Unit Number [id number] 12/24/2016 UN[facility]ERSITY OF 9:49 PM [facility] BANK Blood Red Blood 12/24/2016 UN[facility]ITY OF Component Cells 9:49 PM CAGE MAKER MACHINE [facility] Leukocyte [facility] Reduced BANK Division 00 12/24/2016 [facility] OF Number 9:49 PM CAGE MAKER MACHINE [facility] B[facility] Status of Released to 12/24/2016 [facility] OF Unit care unit 11:58 PM CAGE MAKER MACHINE [facility] Blood Product [id number] 12/24/2016 UN[facility]ITY OF Code 9:49 PM CAGE MAKER MACHINE [facility] B[facility] Unit Status [facility] Specimen Anatomical Collection Method Collection Time Receive d Time (Source) Location / / Volume Laterality 12/23/2016 6:54 AM 7 6:55 CAGE MAKER MACHINE AM CAGE MAKER MACHINE Nora Crit[facility]It LAB - BLOOD BANK PRODUCT ORD ER Performing Organization Address City/[facility] Code Phon e Number [address] [address] [facility] Blood component (12/23/2016 6:54 AM CAGE MAKER MACHINE) [employer] Method Time Signature Unit Number [id number] 12/24/2016 UN[facility]ERSITY OF 8:38 PM CAGE MAKER MACHINE [facility] BANK Blood Red Blood 12/24/2016 UN[facility]ERSITY OF Component Cells 8:38 PM CAGE MAKER MACHINE [facility] Leukocyte [facility] Reduced BANK Division 00 12/24/2016 [facility] OF Number 8:38 PM [facility] B[facility] Status of Released to 12/24/2016 UN[facility]ERSITY OF Unit care unit 11:58 PM [facility] Blood Product [id number] 12/24/2016 UNIVERSITY OF Code 8:38 PM [facility] BANK Unit Status [facility] Specimen Anatomical Collection Method Collection Time Receive d Time (Source) Location / / Volume Laterality 12/23/2016 6:54 AM 7 6:55 CAGE MAKER MACHINE AM CAGE MAKER MACHINE [facility] LAB - BLOOD BANK PRODUCT ORD ER Performing Organization Address City/[facility] Code Phon e Number [address] [address] [place] BANK Blood component (12/23/2016 6:54 AM CAGE MAKER MACHINE) [employer] Method Time Signature Unit Number [id number] 12/24/2016 UNIVERSITY OF 8:38 PM CAGE MAKER MACHINE [facility] B[facility] Blood Red Blood 12/24/2016 [facility]ITY OF Component Cells 8:38 PM CAGE MAKER MACHINE [facility] Leukocyte [facility] Reduced BANK Division 00 12/24/2016 UN[facility]ITY OF Number 8:38 PM CAGE MAKER MACHINE [facility] B[facility] Status of Released to 12/24/2016 UNIVERSITY OF Unit care unit 11:58 PM CAGE MAKER MACHINE [facility] Blood Product [id number] 12/24/2016 UNIVERSITY OF Code 8:38 PM CAGE MAKER MACHINE [facility] BANK Unit Status [facility] Specimen Anatomical Collection Method Collection Time Receive d Time (Source) Location / / Volume Laterality 12/23/2016 6:54 AM 7 6:55 CAGE MAKER MACHINE AM CAGE MAKER MACHINE Nora VinceAgnitus LAB - BLOOD BANK PRODUCT ORD ER Performing Organization Address City/[facility] Code Phon e Number [facility] [address] [place], [place] [id number] [place] [address] [facility] Blood component (12/23/2016 6:54 AM CAGE MAKER MACHINE) [facility] Method Time Signature Unit Number [id number] 12/24/2016 UNIVERSITY OF 8:38 PM CAGE MAKER MACHINE [facility] BANK Blood Red Blood 12/24/2016 UNIVERSITY OF Component Cells 8:38 PM CAGE MAKER MACHINE [facility] Reduced BANK Division 00 12/24/2016 UN[facility]ERSITY OF Number 8:38 PM CAGE MAKER MACHINE [facility] B[facility] Status of Released to 12/24/2016 UNIVERSITY OF Unit care unit 11:58 PM CAGE MAKER MACHINE [facility] Blood Product [id number] 12/24/2016 UNIVERSITY OF Code 8:38 PM CAGE MAKER MACHINE [facility] B[facility] Unit Status [facility] Specimen Anatomical Collection Method Collection Time Receive d Time (Source) Location / / Volume Laterality 12/23/2016 6:54 AM 7 6:55 CAGE MAKER MACHINE AM CAGE MAKER MACHINE Nora LinAgnitus LABORATORY Performing Organization Address City/[facility] Phon e Number [facility] [address] [place], [place] [phone] [place] [address] [facility] Blood component (12/23/2016 6:54 AM CAGE MAKER MACHINE) [facility] gist Method Time Signature Unit Number [id number] 12/24/2016 UNIVERSITY OF 8:38 PM CAGE MAKER MACHINE [facility] BANK Blood Red Blood 12/24/2016 UNIVERSITY OF Component Cells 8:38 PM CAGE MAKER MACHINE [facility] Leukocyte [facility] Reduced BANK Division 00 12/24/2016 UNIVERSITY OF Number 8:38 PM CAGE MAKER MACHINE [facility] BANK Status of Released to 12/24/2016 UNIVERSITY OF Unit care unit 11:58 PM CAGE MAKER MACHINE [facility] [place] Blood Product [id number] 12/24/2016 UNIVERSITY OF Code 8:38 PM CAGE MAKER MACHINE [facility] BANK Unit Status [facility] Specimen Anatomical Collection Method Collection Time Receive d Time (Source) Location / / Volume Laterality 12/23/2016 6:54 AM 7 6:55 CAGE MAKER MACHINE AM CAGE MAKER MACHINE [facility] Performing Organization Address City/[facility] Code Phon e Number [place] [phone] [facility] Blood component (12/23/2016 6:54 AM CAGE MAKER MACHINE) [facility] [employer] Method Time Signature Unit Number [id number] 12/24/2016 UNIVERSITY OF 7:32 PM CAGE MAKER MACHINE [facility] BANK Blood Red Blood 12/24/2016 UNIVERSITY OF Component Cells 7:32 PM CAGE MAKER MACHINE [facility] Reduced BANK Division 00 12/24/2016 UNIVERSITY OF Number 7:32 PM CAGE MAKER MACHINE [facility] BANK Status of Released to 12/24/2016 UNIVERSITY OF Unit care unit 11:58 PM CAGE MAKER MACHINE [facility] Blood Product [id number] 12/24/2016 UNIVERSITY OF Code 7:32 PM CAGE MAKER MACHINE [facility] BANK Unit Status [facility] Specimen Anatomical Collection Method Collection Time Receive d Time (Source) Location / / Volume Laterality 12/23/2016 6:54 AM 7 6:55 CAGE MAKER MACHINE AM CAGE MAKER MACHINE [facility] Performing Organization Address City/[facility] Code Phon e Number [facility] [address] [place] [phone] [facility] Blood component (12/23/2016 6:54 AM CAGE MAKER MACHINE) Patholo gist Method Time Signature Unit Number [id number] 12/24/2016 UNIVERSITY OF 7:32 PM CAGE MAKER MACHINE [facility] BANK Blood Red Blood 12/24/2016 UNIVERSITY OF Component Cells 7:32 PM CAGE MAKER MACHINE [facility] Leukocyte [facility] Reduced BANK Division 00 12/24/2016 UNIVERSITY OF Number 7:32 PM CAGE MAKER MACHINE [facility] B[facility] Status of Released to 12/24/2016 UNIVERSITY OF Unit care unit 11:58 PM CAGE MAKER MACHINE [facility] [place] Blood Product [id number] 12/24/2016 UNIVERSITY OF Code 7:32 PM CAGE MAKER MACHINE [facility] BANK Unit Status [facility] Specimen Anatomical Collection Method Collection Time Receive d Time (Source) Location / / Volume Laterality 12/23/2016 6:54 AM 7 6:55 CAGE MAKER MACHINE AM CAGE MAKER MACHINE [facility] Performing Organization Address City/[facility]/ZIP Code Phon e Number [facility] [address] [place], [place] [phone] [place] [id number] [place] [address] Blood component (12/23/2016 6:54 AM CAGE MAKER MACHINE) [facility] gist Method Time Signature Unit Number [id number] 12/24/2016 UNIVERSITY OF 7:05 PM CAGE MAKER MACHINE [facility] BANK Blood Red Blood 12/24/2016 UNIVERSITY OF Component Cells 7:05 PM CAGE MAKER MACHINE [facility] Leukocyte [facility] Reduced BANK Division 00 12/24/2016 UNIVERSITY OF Number 7:05 PM [facility] BANK Status of Released to 12/24/2016 UNIVERSITY OF Unit care unit 11:58 PM [facility] Blood Product [id number] 12/24/2016 UNIVERSITY OF Code 7:05 PM CAGE MAKER MACHINE [facility] B[facility] Unit Status [facility] Specimen Anatomical Collection Method Collection Time Receive d Time (Source) Location / / Volume Laterality 12/23/2016 6:54 AM 7 6:55 CAGE MAKER MACHINE AM CAGE MAKER MACHINE [facility] Performing Organization Address City/[facility]/ZIP Code Phon e Number [facility] [address] [place] [address] [place] [phone] [facility] Blood component (12/23/2016 6:54 AM CAGE MAKER MACHINE) [employer] Method Time Signature Unit Number [id number] 12/24/2016 UNIVERSITY OF 7:05 PM CAGE MAKER MACHINE [facility] BANK Blood Red Blood 12/24/2016 UNIVERSITY OF Component Cells 7:05 PM [facility] BANK Division 00 12/24/2016 UNIVERSITY OF Number 7:05 PM [facility] Status of Released to 12/24/2016 UNIVERSITY OF Unit care unit 11:58 PM [facility] Blood Product [id number] 12/24/2016 UNIVERSITY OF Code 7:05 PM [facility] Unit Status [facility] Specimen Anatomical Collection Method Collection Time Receive d Time (Source) Location / / Volume Laterality 12/23/2016 6:54 AM 7 6:55 CAGE MAKER MACHINE AM CAGE MAKER MACHINE Nora Mohamud LABORATORY Performing Organization Address City/State/ZIP Code Phon e Number [facility] [address] [place], [place] [phone] [place] [address] [facility] ABO/Rh type and screen (12/23/2016 6:54 AM CAGE MAKER MACHINE) [facility] Method Time Signature Units Ordered 12 12/24/2016 UNIVERSITY 9:49 PM [facility] ABO B 12/23/2016 UNIVERSITY OF 7:32 AM [facility] RH(D) Pos [facility] Antibody Neg 12/23/2016 UNIVERSITY OF Screen 7:32 AM [facility] Test Valid University 12/23/2016 UNIVERSITY OF [facility] 7:01 AM CAGE MAKER MACHINE [facility] BANK w Hospital Specimen 12/26/2016 12/23/2016 UNIVERSITY OF Expires 7:01 AM [facility] Crossmatch Red Blood 12/24/2016 UNIVERSITY OF Cells 7:05 PM [facility] Specimen Anatomical Collection Method Collection Time Receive d Time (Source) Location / / Volume Laterality Blood specimen 12/23/2016 6:54 AM 017 6:55 (specimen) CAGE MAKER MACHINE AM CAGE MAKER MACHINE Nora Mohamud LAB - BLOOD BANK TEST ORDER Performing Organization Address City/[facility] Phon e Number [address] [address] [facility] ABO/Rh type and screen (12/20/2016 10:48 AM CDT) [facility] Method Time Signature ABO B 12/20/2016 UNIVERSITY 11:31 AM CDT [facility] RH(D) Pos [facility] Antibody Neg 12/20/2016 UNIVERSITY OF Screen 11:31 AM CDT [facility] Test Valid University 12/20/2016 [facility] OF [facility] [place] 11:00 AM CDT [facility] BANK w Hospital Specimen 12/23/2016 12/20/2016 UNIVERSITY OF Expires 11:00 AM CDT [facility] Specimen Anatomical Collection Method Collection Time Receive d Time (Source) Location / / Volume Laterality Blood specimen 12/20/2016 10:48 7 (specimen) AM CDT 10:49 AM CDT Lashawn Patel MD LAB - BLOOD BANK TEST ORDER Performing Organization Address [facility] Code Phon e Number [place] [phone] [place] [address] [facility] Maternal BPP Single (12/19/2016 8:46 AM CDT) Anatomical Region Laterality Modality Ultrasound Specimen (Source) Anatomical Collection Method Collection Time Re ceived Time Location / / Volume Laterality 12/19/2016 8:16 AM CDT Impressions 12/25/2016 9:13 AM CAGE MAKER MACHINE IMPRESSION 1) Intrauterine at 28 6/7 week s gestational age. 2) The BPP is reassuring. 3) Oligohydramnios is seen consistent wi th know PPROM. 4) A complete posterior placenta previa is again seen. Narrative 12/25/2016 9:13 AM CAGE MAKER MACHINE BPP Pat. Name: DEANN KING Study Date: 8:16am Pat. NO: [id number] Referring ??MD: CHRIST LOZADA Site: [facility] Fleet Operations Manager: Jay Lu : 1980 Age: 36 INDICATION Premature Rupture of Membranes ( PPROM) Complete previa. METHOD [facility] ANTEPARTUM inpatient exam, Transabd ominal ultrasound examination. [...] RECOMMENDATION We discussed the findings on today's [facility] rasound with the patient. Continue surveillance with [facility] weekly BPP. Continue inpatient management of [...] Pat. Name:Elizabeth KING Date:12/19 8:16am Pat. NO: [id number] :CHRIST BHAT ON [facility]Yesenia Sen RDMS :1980Age:36 INDICATION Premature Rupture of Membranes ( PPROM) Complete previa. METHOD [facility] ANTEPARTUM inpatient exam, Transabd ominal ultrasound examination. [...] seen. Erum Manzanares MD [facility] US ORDERABLES ABO/Rh type and screen (12/17/2016 6:54 AM CDT) [facility] Method Time Signature ABO B 12/17/2016 UNIVERSITY OF 7:49 AM CDT [facility] RH(D) Pos [facility] Antibody Neg 12/17/2016 UNIVERSITY OF Screen 7:49 AM CDT [facility] Test Valid [facility] 12/17/2016 [facility] OF [facility] [place] 7:18 AM CDT [facility] BANK w Hospital Specimen 12/20/2016 12/17/2016 UNIVERSITY OF Expires 7:18 AM CDT [facility] Specimen Anatomical Collection Method Collection Time Receive d Time (Source) Location / / Volume Laterality Blood specimen 12/17/2016 6:54 AM 017 6:56 (specimen) CDT AM CDT [email or web address] LAB - BLOOD BANK TEST ORDER Performing Organization Address City/State/ZIP Code Phon e Number [facility] [address] [place] [address] [facility] Maternal US OB Limited Single/Multiple (12/16/2016 9:24 [...] DEANN KING Study Date: 8:43am Pat. NO: [id number] Referring ??: CHRIST LOZADA Site: [facility] Fleet Operations Manager: Jay Lu : 1980 Age: 36 INDICATION Premature Rupture of Membranes ( PPROM) Complete previa. METHOD [facility] ANTEPARTUM inpatient exam, Transabd ominal ultrasound examination. [...] rasound with the patient. [facility]. Continue inpatient management until [...] Pat. Name:Elizabeth KING Date:12/16 8:43am Pat. NO: [id number] MD:CHRIST BHAT ON [facility]:Yesenia Sen RDMS :1980Age:36 INDICATION Premature Rupture of Membranes ( PPROM) Complete previa. METHOD [facility] ANTEPARTUM inpatient exam, Transabd ominal ultrasound examination. [...] stent with known PPROM. Erum Manzanares MD [facility] ORDERABLES ABO/Rh type and screen (12/14/2016 12:28 AM CDT) [facility] Method Time Signature ABO B 12/14/2016 UNIVERSITY OF 4:01 AM CDT [facility] RH(D) Pos [facility] Antibody Neg 12/14/2016 UNIVERSITY OF Screen 4:01 AM CDT [facility] Test Valid University 12/14/2016 [facility] OF [facility] [place] 1:05 AM CDT [facility] BANK w Hospital Specimen 12/17/2016 12/14/2016 UNIVERSITY OF Expires 1:05 AM CDT [facility] Specimen Anatomical Collection Method Collection Time Receive d Time (Source) Location / / Volume Laterality Blood specimen 12/14/2016 12:28 7 (specimen) AM CDT 12:29 AM CDT Nalini Eli MD LAB - BLOOD BANK TEST ORDER Performing Organization Address City/State/ZIP Code Phon e Number [facility] [address] [place] [address] [facility] Hepatitis B Surface Antibody (12/13/2016 9:42 PM CDT) athologist Signature Hepatitis B 0.21 <8.00 12/16/2016 [facility] m[IU]/mL 11:39 AM CDT [place] [facility] Comment: Nonreactive, No antibody detect ed when the value is less than 8.00 m[IU]/mL. Specimen Anatomical Collection Method Collection Time Receive d Time (Source) Location / / Volume Laterality Blood specimen 12/13/2016 9:42 PM 017 9:43 (specimen) CDT PM CDT Erum Manzanares MD LAB - BLOOD ORDERABLES Performing Organization Address City/[facility]/ZIP Code Phon e Number [address] Hepatitis A Antibody IgG (12/13/2016 9:42 PM CDT) [facility] Method Time Signature Hepatitis A Nonreactive NR^Nonrea 12/16/2016 UNIVERSITY OF Antibody IgG ctive 11:39 AM CDT [facility] Comment: This assay cannot be used for t he diagnosis of acute HAV infection. Specimen Anatomical Collection Method Collection Time Receive d Time (Source) Location / / Volume Laterality Blood specimen 12/13/2016 9:42 PM 017 9:43 (specimen) CDT PM CDT Erum Manzanares MD LAB - BLOOD ORDERABLES Performing Organization Address City/[facility]/ZIP Code Phon e Number [id number] [place] [address] Hepatitis B core antibody (12/13/2016 9:42 PM CDT) [facility] JumpCam Method Time Signature Hepatitis B Nonreactive NR^Nonrea 12/16/2016 [facility] OF Core Maricruz ctive 11:39 AM CDT [facility] Specimen Anatomical Collection Method Collection Time Receive d Time (Source) Location / / Volume Laterality Blood specimen 12/13/2016 9:42 PM 017 9:43 (specimen) CDT PM CDT Erum Manzanares MD LAB - BLOOD ORDERABLES Performing Organization Address City/[facility]/ZIP Code Phon e Number [address] [address] [facility] MR (12/13/2016 2:33 PM CDT) Anatomical [...] 2. Oligohydramnios. ZARINA THOMAS MD Nora Mohamud [facility] MRI ORDERABLES Maternal US OB [...] AM CDT Cx TV Pat. Name: DEANN KNIG Study Date: 7:48am Pat. NO: [id number] Referring ??: CHRIST LOZADA Site: [facility] Fleet Operations Manager: Jay Lu : 1980 Age: 36 INDICATION Premature Rupture of Membranes ( PPROM), Complete Previa. METHOD [facility] ANTEPARTUM inpatient exam, Transabd ominal and transvaginal [...] The patient was escorted back to [facility] at the end of the ultrasound. Please see Healcerion for further documentation regarding plan of care. If you have questions regarding today's evaluation or if we can be of further service, please contact the [facility]. anomalies may be present but not detected. Procedure Note CrossNora MD - 12/12/2016For matting of this note might be different from the original. Cx TV Pat. Name:Elizabeth KING Date:12/12 7:48am Pat. NO: [id number] MD:CHRIST BHAT ON [facility]Yesenia Sen RDMS :1980Age:36 INDICATION Premature Rupture of Membranes ( PPROM), Complete Previa. METHOD [facility] ANTEPARTUM inpatient exam, Transabd ominal and transvaginal [...] The patient was escorted back to her [facility] at the end of the ultrasound. Please see [facility] for further documentation regarding plan of [...] the placental-myometrial interface appears normal. Nora Mohamud [facility] US ORDERABLES ABO/Rh type and screen (12/11/2016 9:05 AM CDT) [facility] Method Time Signature ABO B 12/11/2016 UN[facility]ERSITY 10:14 AM CDT [facility] RH(D) Pos [facility] Antibody Neg 12/11/2016 [facility] OF Screen 10:14 AM CDT [facility] Test Valid [facility] 12/11/2016 [facility] 9:21 AM CDT [facility] BANK w Hospital Specimen 12/14/2016 12/11/2016 [facility] 9:21 AM CDT [facility] Specimen Anatomical Collection Method Collection Time Receive d Time (Source) Location / / Volume Laterality Blood specimen 12/11/2016 9:05 AM 017 9:06 (specimen) CDT AM CDT Nalini Eli MD LAB - BLOOD BANK TEST ORDER Performing Organization Address City/State/ZIP Code Phon e Number [facility] [address] [place] [address] [facility] Echocardiogram Complete (12/10/2016 9:05 AM CDT) Anatomical Region Laterality Modality Echocardiography Specimen (Source) Anatomical Collection Method Collection Time Re ceived Time Location / / Volume Laterality 12/10/2016 8:00 AM CDT Narrative 12/10/2016 9:23 AM CDT [id number]^CROSS^NORA^VINCE ?Study ID: [id number] ?[facility] ?[facility] ?[address]. ?[place] [address] ? Echocardiogram __ Name: DEANN KING Study Date: 12/10/2016 08:00 AM ? Patient Location: [facility] Gender: Female ?Patient Class: Inpatient : 1980 ? Age: 36 yrs Ordering Provider: NORA MOHAMUD Performed By: Krys Servin RDCS Reading Physician: Brice Lloyd MD Reason For Study: Other, Please Specify in Comments Data: Number of fetuses: This is a espinoza gestation. Due date: 03/07/2017. Gestational age: 27w4d. Reginaldi very at: [place]. Specific Indication: echocar diogram performed for family [...] the left atriu m. There is laminar mpgwr-[id number] shunting across the foramen ovale. Atrioventricular valves: [...] Procedure Note Brice Lloyd MD - [id number] [facility] [id number]^EFRA^NORA^VINCE Study ID: [id number] [facility] [address] [address] Echocardiogram __ Name: DEANN KING Study Date: 12/10/2016 08:00 AM Patient Location: [id number] Gender: Female Patient Class: Inpatient : 1980 Age: 36 yrs Ordering Provider: NORA MOHAMUD Performed By: Krys Servin RDCS Reading Physician: Brice Lloyd MD Reason For Study: Other, Please Specify in Comments Data: Number of fetuses: This is a espinoza gestation. Due date: 03/07/2017. Gestational age: 27w4d. Deli very at: [place]. Specific Indication: echocar diogram performed for family [...] the left atriu m. There is laminar miffa-aq-hqha shunting across the foramen ovale. Atrioventricular valves: [...] DEANN KING Study Date: 9:10am Pat. NO: [id number] Referring ??MD: CHRIST LOZADA Site: [facility] Fleet Operations Manager: Jay Lu : 1980 Age: 36 INDICATION Premature Rupture of Membranes ( PPROM) Complete previa. METHOD Transabdominal ultrasound examination, [facility] ANTEPARTUM inpatient exam. View: Suboptimal [...] 2 lb 1 ?oz Calculated by ?Hadlock ([id number]) Head / Face / Neck Biometry: Band Straightener ?3.9 ?mm ? Amniotic Fluid / FHR: [...] Pat. Name:Elizabeth KING Date:12/08 9:10am Pat. NO: [id number] MD:CHRIST BHAT ON [facility]Yesenia Sen RDMS :1980Age:36 INDICATION Premature Rupture of Membranes ( PPROM) Complete previa. METHOD Transabdominal ultrasound examination, [facility] ANTEPARTUM inpatient exam. View: Suboptimal [...] 2 lb 1 oz Calculated by Hadlock ([id number]-FL) Head / Face / Neck Biometry: Band Straightener 3.9 mm Amniotic Fluid / FHR: AF [...] PPROM. Rossana Barker MD [facility] US ORDERABLES Wound Culture Aerobic Bacterial (12/07/2016 6:00 PM CDT) [facility] Method Time Signature Specimen Leg Wound INFECTIOUS [...] Code Phon e Number INFECTIOUS DISEASES [address] [place] [address] DIAGNOSTIC LABORATORY, [facility] INFECTIOUS DISEASE [address] [place] [address], [facility] DIAGNOSTIC LABORATORY Methicillin resistant staph aureus cult (12/07/2016 6:00 PM CDT) Patholo gist Method Time Signature Specimen Wound [facility] EAST BANK Special Specimen 12/07/2016 [facility] OF Requests collected in 7:06 PM CDT [facility] (white cap) Culture Micro Canceled, 12/07/2016 [facility] OF Test credited 8:13 PM CDT [facility] Culture Micro Test 12/07/2016 [facility] OF reordered as 8:13 PM CDT [facility] correct [facility] Specimen Anatomical Collection Method Collection Time Receive d Time (Source) Location / / Volume Laterality Specimen from 12/07/2016 6:00 PM 12/08/19 17 6:21 wound (specimen) CDT PM CDT Rossana Barker MD LAB - MICRO GENERAL ORDERABL ES Performing Organization Address City/State/ZIP Code Phon e Number [facility] [address] [place] [address] [place] TSH with free T4 reflex (12/07/2016 3:43 PM CDT) P athologist Signature TSH 3.09 0.40 - 4.00 12/09/2016 [facility] mU/L 5:39 PM CDT [facility] Specimen Anatomical Collection Method Collection Time Receive d Time (Source) Location / / Volume Laterality 12/07/2016 3:43 PM 7 3:44 CDT PM CDT Nora Leyva MD LAB - BLOOD ORDERABLES Performing Organization Address City/[facility]/ZIP Code Phon e Number [facility] [address] [place] [address] [facility] Rubella Antibody IgG Quantitative (12/07/2016 3:43 PM CDT) Analysis Performed At Patho logist Time Signature Rubella Antibody 7 IU/mL 12/09/2016 [facility]ITY O F IgG Quantitative 11:02 AM CDT [facility] Comment: Negative Reference Range: ??Unvaccinated Negative 0-7 IU/mL Vaccinated or previous exposure Positive 10 IU/ml or greater Specimen Anatomical Collection Method Collection Time Receive d Time (Source) Location / / Volume Laterality 12/07/2016 3:43 PM 7 3:44 CDT PM CDT Nora Leyva MD LAB - BLOOD ORDERABLES Performing Organization Address City/State/ZIP Code Phon e Number [facility] [address] [place] [address] [facility] (ABNORMAL) Hepatitis C RNA quantitative (12/07/2016 3:43 PM CDT) [facility] Method Time Signature HCV RNA Quant [id number] HCVND^HCV 12/09/2016 [facility] OF IU/ml (A) RNA Not 12:19 PM CDT [facility] EAST [IU]/mL BANK Comment: The [...] (H) <1.2 Log IU/mL 12/09/2016 12:19 PM [facility] Qt CDT [facility] BANK Specimen Anatomical Collection Method Collection Time Receive d Time (Source) Location / / Volume Laterality Blood specimen 12/07/2016 3:43 PM 017 3:44 (specimen) CDT PM CDT Nora Leyva MD LAB - BLOOD ORDERABLES Performing Organization Address City/[facility]/ZIP Code Phon e Number [facility] [address] [place] [address] [place] hemoglobin stain Kleihauer (12/07/2016 3:43 PM CDT) [facility] Time Signature Kleihauer-Bet No cells seen 12/07/2016 UNIVE RS[facility] OF ke Rhogam not required 7:22 PM CDT [facility] Patient Rh positive [facility] Test performed at [place] [employer] BANK Specimen Anatomical Collection Method Collection Time Receive d Time (Source) Location / / Volume Laterality Blood specimen 12/07/2016 3:43 PM 017 3:45 (specimen) CDT PM CDT Nora Leyva MD LAB - BLOOD BANK TEST ORDER Performing Organization Address City/State/ZIP Code Phon e Number [address] [address] [facility] Fibrinogen activity (12/07/2016 3:43 PM CDT) athologist Signature Fibrinogen 362 200 - 420 12/07/2016 [facility] mg/dL 5:44 PM CDT [facility] Specimen Anatomical Collection Method Collection Time Receive d Time (Source) Location / / Volume Laterality Blood specimen 12/07/2016 3:43 PM 017 3:44 (specimen) CDT PM CDT Nora Leyva MD LAB - BLOOD ORDERABLES Performing Organization Address City/[facility]/ZIP Code Phon e Number [address] [address] [facility] Partial thromboplastin time (12/07/2016 3:43 PM CDT) athologist Signature PTT 27 22 - 37 sec 12/07/2016 [facility] 5:44 PM CDT [facility] Specimen Anatomical Collection Method Collection Time Receive d Time (Source) Location / / Volume Laterality Blood specimen 12/07/2016 3:43 PM 017 3:44 (specimen) CDT PM CDT Nora Leyva MD LAB - BLOOD ORDERABLES Performing Organization Address City/[facility]/ZIP Code Phon e Number [address] [address] [facility] INR (12/07/2016 3:43 PM CDT) athologist Signature INR 1.06 0.86 - 1.14 12/07/2016 [facility] 5:44 PM T [facility] Specimen Anatomical Collection Method Collection Time Receive d Time (Source) Location / / Volume Laterality Blood specimen 12/07/2016 3:43 PM 017 3:44 (specimen) CDT PM CDT Nora Leyva MD LAB - BLOOD ORDERABLES Performing Organization Address City/State/ZIP Code Phon e Number [address] [address] [facility] (ABNORMAL) Comprehensive metabolic panel (12/07/2016 3:43 PM CDT) athologist Signature Sodium 141 133 - 144 12/07/2016 [facility] OF mmol/L 4:08 PM [facility] Potassium 3.4 3.4 - 5.3 12/07/2016 [facility] OF mmol/L 4:08 PM [facility] Chloride 108 94 - 109 12/07/2016 [facility] OF mmol/L 4:08 PM [facility] Carbon Dioxide 21 20 - 32 12/07/2016 [facility] OF mmol/L 4:08 PM [facility] Anion Gap 12 3 - 14 12/07/2016 [facility] OF mmol/L 4:08 PM [facility] Glucose 88 70 - 99 12/07/2016 [facility] OF mg/dL 4:08 PM [facility] Urea Nitrogen 6 (L) 7 - 30 12/07/2016 [facility] OF mg/dL 4:08 PM [facility] Creatinine 0.55 0.52 - 12/07/2016 [facility] OF 1.04 mg/dL 4:08 PM [facility] GFR Estimate >90 >60 12/07/2016 [facility] mL/min/1.7 4:[address] Comment: Non GFR Calc GFR Estimate If >90 >60 mL/min/1.7m2 12/07/2016 4:08 P M [facility] Black [facility] Comment: GFR Calc Calcium 8.1 (L) 8.5 - 10.1 12/07/2016 4:08 PM [facility] mg/dL [facility] Bilirubin Total 0.4 0.2 - 1.3 12/07/2016 4:08 PM UNIVE RSITY OF [place] mg/dL [facility] Albumin 2.5 (L) 3.4 - 5.0 g/dL 12/07/2016 4:08 PM UNIVER S[facility] OF [facility] Protein Total 6.1 (L) 6.8 - 8.8 g/dL 12/07/2016 4:08 PM [facility] Alkaline Phosphatase 69 40 - [...] City/[facility]/ZIP Code Phon e Number [facility] [address] [place] [address] [facility] Urine Culture Aerobic Bacterial (12/07/2016 2:55 PM CDT) Component Value Ref Test Analysis Performed At [facility] gist Range Method Time Signature Specimen Unspecified Urine INFECTIOUS Description DISEASE DIAGNOSTIC LABORATORY Special Specimen received 12/07/2016 UN[facility]ITY [facility] in preservative 7:19 PM CDT [facility] Culture Micro >100,000 colonies/mL 12/08/2016 INFE CTIOUS mixed urogenital evelina 8:55 PM CDT DISEA SE Susceptibility testing not routinely done DIAGNOSTIC LABORATORY Specimen (Source) Anatomical Collection Method Collection Time Re ceived Time Location / / Volume Laterality Unspecified Urine 12/07/2016 2:55 017 3:51 PM CDT PM CDT Nora Leyva MD LAB - MICRO GENERAL ORDERABL ES Performing Organization Address City/[facility]/ZIP [facility] Phon e Number INFECTIOUS DISEASES [address] [place] [address] DIAGNOSTIC LABORATORY, [facility] INFECTIOUS DISEASE [address] [place] [address] DIAGNOSTIC LABORAT[address] (ABNORMAL) UA reflex to Microscopic and Culture (12/07/2016 2:55 PM CDT) Patholo gist Method Time Signature Color Urine Yellow 12/07/2016 UN[facility]ITY OF 3:37 PM CDT [facility] Appearance Urine Clear 12/07/2016 UN[facility]ERSITY O F 3:37 PM CDT [facility] Glucose Urine Negative NEG^Negat 12/07/2016 UN[facility]ITY OF paula mg/dL 3:37 PM CDT [facility] Bilirubin Urine Negative NEG^Negat 12/07/2016 [facility]ITY OF paula 3:37 PM CDT [facility] Ketones Urine Negative NEG^Negat 12/07/2016 UN[facility]ITY OF paula mg/dL 3:37 PM [facility] Specific Danube 1.015 1.003 - 12/07/2016 UNIVERSITY O F Urine 1.035 3:37 PM [facility] Blood Urine Negative NEG^Negat 12/07/2016 UN[facility]ITY OF paula 3:37 PM [facility] pH Urine 6.5 5.0 - 7.0 12/07/2016 UN[facility]ITY OF pH 3:37 PM [facility] Protein Albumin 10 (A) NEG^Negat 12/07/2016 [facility]ITY OF Urine paula mg/dL 3:37 PM [facility] Urobilinogen Normal 0.0 - 2.0 12/07/2016 UN[facility]ITY OF mg/dL mg/dL 3:37 PM [facility] Nitrite Urine Negative NEG^Negat 12/07/2016 UN[facility]ITY OF paula 3:37 PM [facility] Leukocyte Moderate (A) NEG^Negat 12/07/2016 UN[facility]ITY OF Esterase Urine paula 3:37 PM [facility] Source Midstream 12/07/2016 [facility]ITY OF Urine 3:23 PM [facility] RBC Urine 1 0 - 2 12/07/2016 U OF M /HPF 3:49 PM [facility] WBC Urine 7 (H) 0 - 2 12/07/2016 U OF M /HPF 3:49 PM [facility] Bacteria Urine Few (A) NEG^Negat 12/07/2016 [facility] M paula /HPF 3:49 PM [facility] Squamous 1 0 - 1 12/07/2016 U [facility] M Epithelial /HPF /HPF 3:49 PM [facility] Mucous Urine Present (A) NEG^Negat 12/07/2016 [facility] M paula /LPF 3:49 PM [facility] Specimen (Source) Anatomical Collection Method Collection Time Re ceived Time Location / / Volume Laterality Examination of URINE SPECIMEN 12/07/2016 2:55 12/08/19 17 3:22 midstream urine OBTAINED BY CLEAN PM T PM T specimen CATCH PROCEDURE / (procedure) Unknown Nora Leyva MD LAB - URINE ORDERABLES Performing Organization Address City/State/[facility] Phon e Number U [address] [address] [facility] U OF M [facility] Drug abuse scrn 7 UR (/) (RH, SH, UR) (12/07/2016 2:55 PM CDT) [facility] Method Time Signature Amphetamine Qual Negative NEG^Negat 12/07/2016 UN[facility]ITY O F Urine paula 3:48 PM CDT [facility] Comment: Cutoff for a negative amphetami ne is 500 ng/mL or less. Cannabinoids Qual Negative NEG^Negative 12/07/2016 3:48 PM [facility] Urine [facility] Comment: Cutoff for a negative cannabino id is 50 ng/mL or less. Cocaine Qual Urine Negative NEG^Negative 12/07/2016 3:48 PM [facility] Comment: Cutoff for a negative cocaine i s 300 ng/mL or less. Opiates Qualitative Negative NEG^Negative 12/07/2016 3:48 P M [facility] Urine [facility] Comment: Cutoff for a negative opiate is 300 ng/mL or less. Pcp Qual Urine Negative NEG^Negative 12/07/2016 3:48 PM CDT [facility] Comment: Cutoff for a negative PCP is 25 ng/mL or less. Specimen Anatomical Collection Method Collection Time Receive d Time (Source) Location / / Volume Laterality Urine specimen URINE SPECIMEN 12/07/2016 2:55 PM 12/07 3:22 (specimen) OBTAINED BY CLEAN CDT PM CDT CATCH PROCEDURE / Unknown Nora Leyva MD LAB - URINE ORDERABLES Performing Organization Address [facility] Phon e Number [address] [address] [facility] Chlamydia trachomatis PCR (12/07/2016 2:54 PM CDT) [facility] Method Time Signature Specimen Vagina 12/07/2016 UN[facility]ITY OF Description 3:13 PM CDT [facility] Chlamydia Negative NEG^Negat 12/08/2016 UN[facility]ITY OF Trachomatis PCR paula 1:55 PM CDT [facility] Comment: Negative for C. trachomatis rRNA by prescott scription mediated amplification. A negative result by shade matcher media kris amplification does not preclude the [...] ORDERABL ES Performing Organization Address City/[facility] Phon e Number [facility] [address] [place] [id number] [place] [address] Neisseria gonorrhoeae PCR (12/07/2016 2:54 PM CDT) Analysis Performed At Patho logist Time Signature Specimen Vagina 12/07/2016 UN[facility]ERSITY OF Descrip 3:13 PM CDT [facility] N Gonorrhea Negative NEG^Negati 12/08/2016 UN[facility]ITY OF PCR ve 1:55 PM CDT [facility] Comment: Negative for N. gonorrhoeae rRNA by prescott scription mediated amplification. A negative result by shade matcher media kris amplification does not preclude the [...] ORDERABL ES Performing Organization Address City/[facility] Code Phon e Number [facility] [address] [place] [address] [address] [facility] Wet prep (12/07/2016 2:54 PM CDT) Component Value Ref Test Analysis Performed At Patholo gist Range Method Time Signature Specimen Vagina [facility] Wet Prep No Trichomonas 12/07/2016 [facility] OF seen 3:34 PM CDT [facility] Wet Prep No yeast seen 12/07/2016 [facility] OF 3:34 PM CDT [facility] Wet Prep Moderate 12/07/2016 UN[facility]ERSITY OF PMNs seen 3:34 PM CDT [facility] Wet Prep No clue cells 12/07/2016 [facility] OF seen 3:34 PM CDT [facility] Specimen Anatomical Collection Method Collection Time Receive d Time (Source) Location / / Volume Laterality Specimen from 12/07/2016 2:54 PM 12/08/19 17 3:10 vagina CDT PM CDT (specimen) Nora Leyva MD LAB - MICRO GENERAL ORDERABL ES Performing Organization Address City/[facility]/ZIP Code Phon e Number [address] [address] [facility] (ABNORMAL) Group B strep PCR (12/07/2016 2:54 PM CDT) [facility] JumpCam Method Time Signature Group B Strep Vaginal 12/07/2016 UNIVERSITY PCR Spec Valdemar Rectal 2:58 PM CDT [facility] Group B Strep Positive (A) NEG^Negat 12/08/2016 [facility] F PCR paula 1:27 PM CDT [facility] Comment: Positive: GBS DNA detected, presumed pos itive for GBS. Assay performed on incubated broth cultu re of specimen using VideoGenie real-time PCR. Specimen Anatomical Collection Method Collection Time Receive d Time (Source) Location / / Volume Laterality Vaginal Rectal 12/07/2016 2:54 PM 017 3:14 CDT PM CDT Nora Leyva MD LAB - MICRO GENERAL ORDERABL ES Performing Organization Address City/[facility]/ZIP Code Phon e Number [facility] [address] [place] [address] [address] [facility] ABO/Rh type and screen (12/07/2016 2:41 PM CDT) [facility] JumpCam Method Time Signature ABO B 12/07/2016 [facility]ITY OF 6:08 PM CDT [facility] RH(D) Pos [facility] Antibody Neg 12/07/2016 UN[facility]ERSITY OF Screen 6:08 PM CDT [facility] Test Valid University 12/07/2016 [facility] [place] 5:31 PM CDT [facility] BANK w Hospital Specimen 12/10/2016 12/07/2016 UN[facility]ERSITY OF Expires 5:31 PM CDT [facility] Specimen Anatomical Collection Method Collection Time Receive d Time (Source) Location / / Volume Laterality Blood specimen 12/07/2016 2:41 PM 017 2:44 (specimen) CDT PM CDT Rossana Barker MD LAB - BLOOD BANK TEST ORDER Performing Organization Address City/[facility] Phon e Number [facility] [address] [place] [address] [facility] (ABNORMAL) CBC with platelets (12/07/2016 2:41 PM CDT) [facility] gist Method Time Signature WBC 8.4 4.0 - 11.0 12/07/2016 UN[facility]ERSITY OF 10e9/L 2:47 PM CDT [facility] RBC Count 3.10 (L) 3.8 - 5.2 12/07/2016 UN[facility]ERSITY OF 10e12/L 2:47 PM CDT [facility] Hemoglobin 9.4 (L) 11.7 - 12/07/2016 UN[facility]ITY OF 15.7 g/dL 2:47 PM CDT [facility] Hematocrit 28.2 (L) 35.0 - 12/07/2016 UN[facility]ITY OF 47.0 % 2:47 PM CDT [facility] MCV 91 78 - 100 12/07/2016 UN[facility]ITY OF fl 2:47 PM CDT [facility] MCH 30.3 26.5 - 12/07/2016 [facility] 33.0 pg 2:47 PM CDT [facility] MCHC 33.3 31.5 - 12/07/2016 [facility] 36.5 g/dL 2:47 PM CDT [facility] RDW 17.1 (H) 10.0 - 12/07/2016 [facility] 15.0 % 2:47 PM CDT [facility] Platelet Count 185 150 - 450 12/07/2016 [facility] 10e9/L 2:47 PM CDT [facility] Specimen Anatomical Collection Method Collection Time Receive d Time (Source) Location / / Volume Laterality Blood specimen 12/07/2016 2:41 PM 017 2:42 (specimen) CDT PM CDT Rossana Barker MD LAB - BLOOD ORDERABLES Performing Organization Address City/[facility]/ZIP Code Phon e Number [facility] [address] [place] [address] WEST BANK (ABNORMAL) Referral sensitivity (12/07/2016 1:27 PM CDT) Component Value Ref Test Analysis [facility] Range Method Time Signature Specimen [...] Code Phon e Number INFECTIOUS DISEASES [address] [place] [address] DIAGNOSTIC LABORATORY, [facility] INFECTIOUS DISEASE [address] [place] [address], [facility] DI[facility]NOSTIC [facility] documented in this encounter [...] (TYLENOL) tablet 650 Given 12/24/2016 7:52 AM CAGE MAKER MACHINE 650 mg mg 650 mg, Oral, EVERY 6 HOURS PRN, mild pain, fever, Starting on 12/08/16 at 0223, Maximum acetaminophen dose from all sources = 75 mg/kg/day not to exceed 4 grams/day. Given 12/23/2016 8:03 AM CAGE MAKER MACHINE 650 mg Given 12/22/2016 7:05 PM CAGE MAKER MACHINE 650 mg acetaminophen (TYLENOL) tablet 975 mg Given 12/27/2016 12:40 PM CAGE MAKER MACHINE 975 mg 975 mg, Oral, EVERY 8 HOURS, First dose on Fri12/25/16 at 0000, For 3 days, Do not use if patient has an active opioid/acetaminophen analgesic order for pain Maximum acetaminophen dose from all sources = 75 mg/kg/day not to exceed 4 grams/day., Post-procedure Given 12/27/2016 2:07 AM CAGE MAKER MACHINE 975 mg Given 12/26/2016 6:00 PM CAGE MAKER MACHINE 975 mg amoxicillin (AMOXIL) capsule 250 mg [...] mg bacitracin ointment Given 12/27/2016 8:12 AM CAGE MAKER MACHINE Topical, 3 TIMES DAILY, First dose on Fri12/22/16 at 1400, Apply to areas of picking. Given 12/25/2016 1:01 PM CAGE MAKER MACHINE Given 12/24/2016 7:56 AM CAGE MAKER MACHINE benzocaine (ORAJEL MAXIMUM STRENGTH) 20 % gel Given 12/24/2016 9:19 AM CAGE MAKER MACHINE Mouth/Throat, 4 TIMES DAILY PRN, moderate pain, [...] Suppository 10 mg Given 12/25/2016 9:53 PM CAGE MAKER MACHINE 10 mg 10 mg, Rectal, DAILY PRN, constipation, Starting on Fri12/25/16 at 2148, Start POD 2, Post-procedure buprenorphine (SUBUTEX) sublingual table t 2 mg Given 12/27/2016 8:10 AM CAGE MAKER MACHINE 2 mg 2 mg, Sublingual, 5 TIMES DAILY, First dose on Fri12/07/16 at 1545 Given 12/27/2016 4:06 AM CAGE MAKER MACHINE 2 mg Given 12/26/2016 10:38 PM CAGE MAKER MACHINE 2 mg buPROPion (WELLBUTRIN SR) 12 hr tablet 1 50 mg Given 12/27/2016 8:10 AM CAGE MAKER MACHINE 150 mg 150 mg, Oral, DAILY, First dose on Fri12/17/16 at 0800, DO NOT CRUSH. Given 12/26/2016 8:23 AM CAGE MAKER MACHINE 150 mg Given 12/25/2016 7:52 AM CAGE MAKER MACHINE 150 mg carbamide peroxide (DEBROX) 6.5 % otic Given 12/23/2016 8:16 PM CAGE MAKER MACHINE 3 drops solution 3 drop 3 drop, Right Ear, 2 TIMES DAILY, First dose on Fri12/17/16 at 2000 Given 12/23/2016 8:49 AM CAGE MAKER MACHINE 3 drops Given 12/22/2016 7:52 PM CAGE MAKER MACHINE 3 drops clindamycin (CLEOCIN) infusion 900 New Bag 12/25/2016 1:32 PM CAGE MAKER MACHINE 900 mg 50 mL/hr mg Routine, 900 mg, Intravenous, EVERY 8 HOURS, First dose on Fri12/25/16 at 0430, For 24 hours, Indications: Perioperative Pharmacoprophylaxis New Bag 12/25/2016 6:19 AM CAGE MAKER MACHINE 900 mg 50 mL/hr cyclobenzaprine (FLEXERIL) tablet 10 mg Given 12/23/2016 10:10 PM CAGE MAKER MACHINE 10 mg 10 mg, Oral, AT BEDTIME PRN, muscle spasms, Starting on Fri12/09/16 at 2342 Given 12/22/2016 11:17 PM CAGE MAKER MACHINE 10 mg Given 12/21/2016 10:15 PM CDT 10 mg diphenhydrAMINE (BENADRYL) capsule 25 mg Given 12/25/2016 7:23 PM CAGE MAKER MACHINE 25 mg 25 mg, Oral, EVERY 6 [...] emollient (VANICREAM) cream Given 12/24/2016 9:19 AM CAGE MAKER MACHINE Topical, EVERY 2 HOURS PRN, other, area of dry skin, Starting on Fri12/15/16 at 1239, Apply to areas of dry skin fentaNYL (PF) (SUBLIMAZE) injection 50 m cg Given 12/25/2016 1:03 AM CAGE MAKER MACHINE 50 mcg 50 mcg, Intravenous, EVERY 2 [...] 100 mcg., PACU Given 12/25/2016 12:48 AM CAGE MAKER MACHINE 50 mcg Given 12/25/2016 12:26 AM CAGE MAKER MACHINE 50 mcg fluconazole (DIFLUCAN) tablet 150 mg Given 12/24/2016 7:49 AM CAGE MAKER MACHINE 150 mg Routine, 150 mg, Oral, ONCE, On Fri12/24/16 at 0800, For 1 dose, Indications: Candidiasis gentamicin (GARAMYCIN) 120 mg in NaCl 0.9 % New Bag 09/2016 8:34 PM CAGE MAKER MACHINE 120 mg 100 mL intermittent infusion Routine, 120 mg, Intravenous, EVERY 8 HOURS, First dose on Fri12/25/16 at 0500, For 24 hours, Indications: Perioperative Pharmacoprophylaxis New Bag 12/25/2016 12:18 PM CAGE MAKER MACHINE 120 mg New Bag 12/25/2016 5:01 AM CAGE MAKER MACHINE 120 mg hydrocortisone (CORTAID) 1 % cream Given 12/27/2016 8:12 AM CAGE MAKER MACHINE Topical, 2 TIMES DAILY, First dose on Fri12/17/16 at 2115, Apply to upper arms and left abdomen Given 12/25/2016 8:09 AM CAGE MAKER MACHINE Given 12/23/2016 8:48 AM CAGE MAKER MACHINE Left Arm HYDROmorphone (DILAUDID) Loading Dose Given 12/25/2016 3:[address] 0.2 mg administered from SURFACE GRINDING MACHINE HAND 0.2-0.3 mg 0.2-0.3 mg, Intravenous, SURFACE GRINDING MACHINE HAND LOADING DOSE, On Fri12/25/16 at 0000, For 1 dose, LOADING DOSE (bolus) with start of SURFACE GRINDING MACHINE HAND. DO NOT GIVE IF A LOADING BOLUS DOSE HAS ALREADY BEEN GIVEN. (If loading dose not given from SURFACE GRINDING MACHINE HAND, bar code scan must be overridden to chart dose)., Post-procedure HYDROmorphone (DILAUDID) SURFACE GRINDING MACHINE HAND 1 New Syringe/Cartridge 12/25/2016 1:00 AM CAGE MAKER MACHINE mg/mL SURFACE GRINDING MACHINE HAND dose (mg): 0.2, Max SURFACE GRINDING MACHINE HAND dose (mg): 0.3, Lockout Interval (min): 10 minutes, SURFACE GRINDING MACHINE HAND Continuous Rate (mg/hr): CONTINUOUS RATE IS NOT RECOMMENDED FOR OPIOID NAIVE PATIENTS, Hour Limit (mg): 1.8, First dose on Fri12/25/16 at 0000, Do NOT give any additional opioids while on SURFACE GRINDING MACHINE HAND. When transitioning from SURFACE GRINDING MACHINE HAND to oral opioids MAY give first oral opioid dose 30 minutes PRIOR to discontinuation of SURFACE GRINDING MACHINE HAND., Intravenous, Post-procedure HYDROmorphone (DILAUDID) SURFACE GRINDING MACHINE HAND 1 mg/mL Shift Total 12/25/2016 6:24 AM CAGE MAKER MACHINE SURFACE GRINDING MACHINE HAND dose (mg): 0.2, Max SURFACE GRINDING MACHINE HAND dose (mg): 0.3, Lockout Interval (min): 10 minutes, SURFACE GRINDING MACHINE HAND Continuous Rate (mg/hr): CONTINUOUS RATE IS NOT RECOMMENDED FOR OPIOID NAIVE PATIENTS, Hour Limit (mg): 2, First dose (after last modification) on Fri12/25/16 at 0430, Do NOT give any additional opioids while on SURFACE GRINDING MACHINE HAND. When transitioning from SURFACE GRINDING MACHINE HAND to oral opioids MAY give first oral opioid dose 30 minutes PRIOR to discontinuation of SURFACE GRINDING MACHINE HAND., Intravenous, Post-procedure Rate/Dose Verify 12/25/2016 4:54 AM CAGE MAKER MACHINE 0.3 mg HYDROmorphone (DILAUDID) SURFACE GRINDING MACHINE HAND 1 mg/mL Rate/Dose Verify 12/25/2016 9:01 AM CAGE MAKER MACHINE SURFACE GRINDING MACHINE HAND dose (mg): 0.3, Max SURFACE GRINDING MACHINE HAND dose (mg): 0.5, Lockout Interval (min): 10 minutes, SURFACE GRINDING MACHINE HAND Continuous Rate (mg/hr): 0.3, MAX Continuous Rate (mg/hr): 0.3, Hour Limit (mg): 3.3, First dose on Fri12/25/16 at 0845, Do NOT give additional opioids orders unless requested by provider., Intravenous HYDROmorphone (PF) (DILAUDID) injection Given 12/26/2016 8:34 AM CAGE MAKER MACHINE 0.3 mg 0.2-0.3 mg 0.2-0.3 mg, Intravenous, EVERY 1 HOUR PRN, moderate to severe pain, Starting on Zoe 12/26/16 at 0407, Give IV Push undiluted up to 4 mg. Each 2mg over 2-5 minutes. Given 12/26/2016 6:57 AM CAGE MAKER MACHINE 0.3 mg Given 12/26/2016 5:07 AM CAGE MAKER MACHINE 0.3 mg HYDROmorphone (PF) (DILAUDID) injection Given 12/26/2016 1:52 AM CAGE MAKER MACHINE 0.5 mg 0.3-0.5 mg 0.3-0.5 mg, Intravenous, EVERY 1 HOUR PRN, moderate to severe pain, Starting on Fri12/25/16 at 1559, Give IV Push undiluted up to 4 mg. Each 2mg over 2-5 minutes. Given 12/26/2016 12:31 AM CAGE MAKER MACHINE 0.5 mg Given 12/25/2016 10:34 PM CAGE MAKER MACHINE 0.5 mg HYDROmorphone (PF) (DILAUDID) injection 0.5 Given 12/25/2016 2:30 AM CAGE MAKER MACHINE 0.5 mg mg 0.5 mg, Intravenous, EVERY [...] minutes., PACU/Phase II Given 12/25/2016 1:56 AM CAGE MAKER MACHINE 0.5 mg Given 12/25/2016 1:31 AM CAGE MAKER MACHINE 0.5 mg hydrOXYzine (ATARAX) tablet 50 mg Given 12/08/2016 3:19 AM CDT 50 mg 50 mg, Oral, ONCE, On 12/08/16 at 0315, For 1 dose ibuprofen (ADVIL/MOTRIN) tablet 600 mg Given 12/27/2016 9:24 AM CAGE MAKER MACHINE 600 mg 600 mg, Oral, EVERY 6 HOURS RT, First dose (after last modification) on Zoe 12/26/16 at 0800, Ibuprofen to start after toradol finishes Given 12/27/2016 3:07 AM CAGE MAKER MACHINE 600 mg Given 12/26/2016 9:01 PM CAGE MAKER MACHINE 600 mg indomethacin (INDOCIN) capsule 25 mg [...] injection 30 mg Given 12/26/2016 2:29 AM CAGE MAKER MACHINE 30 mg 30 mg, Intravenous, EVERY 6 HOURS PRN, moderate to severe pain, Starting on 12/25/16 at 0826, For 24 hours, For ordered doses up to 30 mg, give IV Push undiluted over 2 minutes. Given 12/25/2016 8:23 PM CAGE MAKER MACHINE 30 mg Given 12/25/2016 2:04 PM CAGE MAKER MACHINE 30 mg lactated ringers BOLUS 1,000 mL New Bag 12/24/2016 6:45 PM CAGE MAKER MACHINE 1,000 mLs Intravenous, 1,000 mL, ONCE, On 12/24/16 at 1900, For 1 dose, Prior to surgery. IF preeclamptic give only 500 mL, Pre-procedure lactated ringers infusion Rate/Dose Verify 12/07/2016 11:20 PM CDT 50 mL/hr at 50 mL/hr, Intravenous, CONTINUOUS, Starting on 12/07/16 at 1515, Until 12/09/16 at 1712 lactated ringers infusion New Bag 12/25/2016 5:40 PM CAGE MAKER MACHINE 125 mL/hr at 125 mL/hr, Intravenous, CONTINUOUS, Starting on Fri12/25/16 at 0430, Until Zoe 12/26/16 at 0911 New Bag 12/25/2016 6:18 AM CAGE MAKER MACHINE 125 mL/hr Rate/Dose Change 12/25/2016 5:06 AM CAGE MAKER MACHINE 125 mL/hr levothyroxine (SYNTHROID/LEVOTHROID) tablet Given 11/18 7:46 AM CDT 125 mcg 125 mcg 125 mcg, Oral, DAILY, First dose on Fri12/08/16 at 0800, Separate oral administration of iron- or calcium-containing products and levothyroxine by at least 4 hours. Given 12/09/2016 10:11 AM CDT 125 mcg Given 12/08/2016 8:01 AM CDT 125 mcg levothyroxine (SYNTHROID/LEVOTHROID) tablet Given 12/18 8:10 AM CAGE MAKER MACHINE 150 mcg 150 mcg 150 mcg, Oral, DAILY, First dose (after last modification) on Fri12/11/16 at 0800, Separate oral administration of iron- or calcium-containing products and levothyroxine by at least 4 hours. Given 12/26/2016 8:24 AM CAGE MAKER MACHINE 150 mcg Given 12/25/2016 7:52 AM CAGE MAKER MACHINE 150 mcg lidocaine (LMX4) 4 % kit Given by Other 12/25/2016 8:34 PM CAGE MAKER MACHINE Starting on Fri12/25/16 at 1930, For 1 dose, Maria Antonia Hidalgo : cabinet override magic mouthwash suspension (diphenhydramine, lidocaine , aluminum-magnesium & simethicone) 10 mL, Swish & Swallow, EVERY 6 HOURS DC N, mouth sores, Starting on Fri12/24/16 at [...] NS intermittent Given 12/24/2016 7:15 P M CAGE MAKER MACHINE 6 g infusion (cmpd premix) 6 g, [...] injection 4 mg Given 12/22/2016 5:06 PM CAGE MAKER MACHINE 4 mg 4 mg, Intravenous, EVERY 6 [...] 10-15 m g Given 12/25/2016 1:18 PM CAGE MAKER MACHINE 15 mg 10-15 mg, Oral, EVERY 4 HOURS PRN, moderate to severe pain, Starting on Fri12/25/16 at 1246 oxyCODONE IR (ROXICODONE) tablet 15-20 m g Given 12/27/2016 12:40 PM CAGE MAKER MACHINE 20 mg 15-20 mg, Oral, EVERY 3 HOURS PRN, moderate to severe pain, Starting on Fri12/25/16 at 1645, Patient is an opioid tolerant patient and will require higher narcotic doses due to buprenorphine. Given 12/27/2016 9:24 AM CAGE MAKER MACHINE 20 mg Given 12/27/2016 6:21 AM CAGE MAKER MACHINE 20 mg potassium chloride (KLOR-CON) Packet 20- [...] iron per tablet Given 12/24 7:49 AM CAGE MAKER MACHINE 1 tablet 1 tablet 1 tablet, Oral, DAILY, First dose on Fri12/13/16 at 1300 Given 12/23/2016 8:48 AM CAGE MAKER MACHINE 1 tablet Given 12/22/2016 8:10 AM CAGE MAKER MACHINE 1 tablet senna-docusate (SENOKOT-S;PERICOLACE) Given 12/17/2016 8:05 [...] Fri12/17/16 at 2000 Given 12/23/2016 8:15 PM CAGE MAKER MACHINE 1 tablet Given 12/23/2016 8:48 AM CAGE MAKER MACHINE 1 tablet senna-docusate (SENOKOT-S;PERICOLACE) Given 12/27/2016 8:10 [...] to opioids., Post-procedure Given 12/26/2016 9:01 PM CAGE MAKER MACHINE 2 tablets Given 12/26/2016 8:23 AM CAGE MAKER MACHINE 2 tablets simethicone (MYLICON) chewable tablet 80 mg Given 12/26/2016 1:54 PM CAGE MAKER MACHINE 80 mg 80 mg, Oral, 4 TIMES DAILY PRN, other, gas, Starting on Fri12/25/16 at 0352, Chew., Post-procedure Given 12/26/2016 6:36 AM CAGE MAKER MACHINE 80 mg Given 12/26/2016 12:31 AM CAGE MAKER MACHINE 80 mg sodium chloride (OCEAN) 0.65 % [...] flush 3 mL Given 12/24/2016 3:06 PM CAGE MAKER MACHINE 3 mLs 3 mL, Intracatheter, EVERY 8 HOURS, First dose on Fri12/07/16 at 1515, And Q1H PRN, to lock peripheral IV dormant line. Given 12/24/2016 6:16 AM CAGE MAKER MACHINE 3 mLs Given 12/23/2016 10:05 PM CAGE MAKER MACHINE 3 mLs sodium chloride (PF) 0.9% PF flush 3 mL Given 12/24/2016 6:52 PM CAGE MAKER MACHINE 3 mLs 3 mL, Intravenous, EVERY 8 HOURS, First dose on Fri12/24/16 at 1900, And Q1H PRN, to lock peripheral IV dormant line. , Pre-procedure sodium chloride (PF) 0.9% PF flush 3 mL Given 12/26/2016 6:58 AM CAGE MAKER MACHINE 3 mLs 3 mL, Intracatheter, EVERY 1 HOUR PRN, line flush, for peripheral IV flush post IV meds, Starting on Fri12/25/16 at 0352, Post-procedure Given 12/26/2016 5:07 AM CAGE MAKER MACHINE 3 mLs Given 12/26/2016 1:52 AM CAGE MAKER MACHINE 3 mLs sodium chloride (PF) 0.9% PF flush 3 mL Given 12/26/2016 2:29 AM CAGE MAKER MACHINE 3 mLs 3 mL, Intracatheter, EVERY 8 HOURS, First dose on Fri12/25/16 at 0400, And Q1H PRN, to lock peripheral IV dormant line., Post-procedure Given 12/25/2016 8:34 PM CAGE MAKER MACHINE 3 mLs Given 12/25/2016 12:12 PM CAGE MAKER MACHINE 3 mLs sodium citrate-citric acid (BICITRA) 500 -334 MG/5ML solution Starting on Fri12/24/16 at 1850, For 1 dose, Jon Joya : cabinet override sodium citrate-citric acid (BICITRA) solution Given 7:00 PM CAGE MAKER MACHINE 30 mLs 30 mL 30 mL, Oral, PRE-OP/PRE-PROCEDURE, Starting on Fri12/24/16 at 1848, For 1 dose, For gastric pH neutralization. GIVE WITHIN 45 minutes PRIOR TO SURGICAL PROCEDURE., Pre-procedure venlafaxine (EFFEXOR-ER) 24 hr tablet 15 0 mg Given 12/27/2016 8:10 AM CAGE MAKER MACHINE 150 mg 150 mg, Oral, DAILY WITH BREAKFAST, First dose (after last modification) on Fri12/09/16 at 0800, DO NOT CRUSH. Given 12/26/2016 8:23 AM CAGE MAKER MACHINE 150 mg Given 12/25/2016 11:12 AM CAGE MAKER MACHINE 150 mg venlafaxine (EFFEXOR-ER) 24 hr tablet 30 0 mg Given 12/08/2016 8:27 AM CDT 150 mg 300 mg, Oral, DAILY WITH BREAKFAST, First dose on Fri12/08/16 at 0800, DO NOT CRUSH. documented in this encounter Active and Recently Administered Medications Times are shown in CAGE MAKER MACHINE. Scheduled Medication Order 12/25/2016 12/26/2016 12/27/2016 acetaminophen [...] HYDROmorphone (DILAUDID) Loading Dose ad ministered from SURFACE GRINDING MACHINE HAND 0.2-0.3 mg (COMPLETED) 033 (Given - Provider: Khloe Elmore RN) 0.2-0.3 mg, Intravenous, SURFACE GRINDING MACHINE HAND LOADING DOS E, Fri12/25/16 at 0000, For 1 dose, LOADING DOSE (bolus) with start of SURFACE GRINDING MACHINE HAND. DO NOT GIVE IF A LOADING BOLUS DOSE HAS ALREADY BEEN GIVEN. (If loading dose not given from SURFACE GRINDING MACHINE HAND, bar code scan must be overridden to chart dose)., Pos t-procedure HYDROmorphone (DILAUDID) SURFACE GRINDING MACHINE HAND 1 mg/mL (CANCELED) 0100 ( New Syringe/Cartridge - Provider: Lisa Rubio RN)0218 (Auto Hold - Provider: Orders Generic Provider - Reason: Transfer to a procedural area)0253 (Unhold - Provider: Marleny Kang MD) SURFACE GRINDING MACHINE HAND dose (mg): 0.2, Max SURFACE GRINDING MACHINE HAND dose (mg): 0 .3, Lockout Interval (min): 10 minutes, SURFACE GRINDING MACHINE HAND Continuous Rate (mg/hr): CONTINUOUS RATE IS NOT RECOMMENDED FOR OPIOID NAIVE PATIENTS, Hour Limit (mg): 1.8, First dos e on Fri12/25/16 at 0000, Do NOT give an y additional opioids while on SURFACE GRINDING MACHINE HAND. When transitioning from SURFACE GRINDING MACHINE HAND to oral opioids MAY give first oral opioid dose 30 minutes PRIOR to discontinuation of SURFACE GRINDING MACHINE HAND., Intravenous, Post-procedure HYDROmorphone (DILAUDID) SURFACE GRINDING MACHINE HAND 1 mg/mL (CANCELED) 0454 ( Rate/Dose Verify - Provider: Khloe Elmore RN)0508 (Canceled Entry - Provider: Khloe Elmore RN)0624 (Shift Total - Provider: Khloe Elmore RN) SURFACE GRINDING MACHINE HAND dose (mg): 0.2, Max SURFACE GRINDING MACHINE HAND dose (mg): 0 .3, Lockout Interval (min): 10 minutes, SURFACE GRINDING MACHINE HAND Continuous Rate (mg/hr): CONTINUOUS RATE IS NOT RECOMMENDED FOR OPIOID NAIVE PATIENTS, Hour Limit (mg): 2, First dose on Fri12/25/16 at 0430, Do NOT give any additional opioids while on SURFACE GRINDING MACHINE HAND. When transitioning from SURFACE GRINDING MACHINE HAND to oral opioids MAY give first oral opioid dose 30 minutes PRIOR to discontinuation of SURFACE GRINDING MACHINE HAND., Intravenous, Post-procedure HYDROmorphone (DILAUDID) SURFACE GRINDING MACHINE HAND 1 mg/mL (CANCELED) 0845 ( Canceled Entry - Provider: Fransisca Gates RN)0901 (Rate/Dose Verify - Provider: Fransisca Gates RN)1350 (Stopped - Provider: Maria Antonia Hidalgo RN) SURFACE GRINDING MACHINE HAND dose (mg): 0.3, Max SURFACE GRINDING MACHINE HAND dose (mg): 0 .5, Lockout Interval (min): 10 minutes, SURFACE GRINDING MACHINE HAND Continuous Rate (mg/hr): 0.3, MAX Continuous Rate [...] Antonia Hidalgo, RN)2034 (Given - Provider: Yessenia Julina, GENARO) 0229 (Given - Provider: Lucia Cotton, [...] RN) 0.2-0.3 mg, Intravenous, EVERY 1 HOUR DC N, Starting Fri12/26/16 at 0407, Until Fri12/26/16 [...] RN) 0.3-0.5 mg, Intravenous, EVERY 1 HOUR DC N, Starting Fri12/25/16 at 1559, Until Fri12/26/16 [...] mg () 0832 (Gi alex - Provider: Frasnisca Gates RN)1404 (Given - Provider: Maria Antonia [...] mL, Swish & Swallow, EVERY 6 HOURS DC N, mouth sores, Starting Tu12/24/16 at 1014 [...] Lucia Cotton, GENARO)0507 (Given - Provider: Lucia oCtton, GENARO)0658 (Given - Provider: Lucia Cotton RN) [...]
Post-procedure documented in this encounter Care Teams Computer Training Specialist Relationship Specialty Start Date End Date Luis Fernando Magana PCP - General Family Practice 12/07/16 01/19/[address] [address] documented as of this encounter
--- OUTSIDE RECORDS SUMMARY | 2021-12-14 16:24 | XMS_ITS | Encounter Summary ---
:1980 Author Organization [place] Address [address] [facility] [place] [address] Care Team Providers Name Role Phone ChinoLuis Fernando morataya Primary Care Provider Encounter Details Date Type Department Care Team Description 12/20/2016 Orders Only [facility] Tarsha Torres Placenta a ccreta, [facility] MD Ann Marie antepartum ( Primary [place] Dx) [address] [place] [facility] [address] [place] [address] Social History Tobacco Use Types Packs/Day Years Used Date Smoking Tobacco: Every Day Cigarettes 0.1 10 Smokeless Tobacco: Never Comments: 5 cigarettes a day Alcohol Use Standard Drinks/Week Comments Yes 0 (1 standard drink = 0.6 oz pure Stoppe d after found out alcohol) Sex Assigned at Date Recorded Female 01/14/2020 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 documented as of this encounter Plan of Treatment Upcoming Encounters Date Type Specialty Care Team Description 12/20/2021 Office Visit Wound Care Luis Camara, [place] [address], [place] [id number] (Wo rk) 01/21/2022 PRE VISIT Gastroenterology Landon Warren, *-*HEATHER Barriga RECORDS*-* MD Luis Fernando [address] [facility] [address] [place], [place] [phone] (Wo rk) 01/21/2022 Office Visit Gastroenterology Juanis Levi [address] [place] [id number] Luis Fernando Miles MD [address] [facility] [address] [place] [address] Scheduled Orders Name Type Priority Associated Diagnoses Order S chedule Teresa-Operative Procedures Routine Placenta accreta, Ordered: 12/20/2016 Worksheet ( antepartum Section, Immediate Hysterectomy) documented as of this encounter Visit Diagnoses Diagnosis Placenta accreta, antepartum - Primary documented in this encounter Care Teams Hemodialysis Charge Nurse Relationship Specialty Start Date End Date Luis Fernando Magana PCP - General Family Practice 12/07/16 01/19/[address] [address] documented as of this encounter
--- OUTSIDE RECORDS SUMMARY | 2021-12-14 16:24 | XMS_ITS | Encounter Summary ---
:1980 Author Organization [place] Address [address] [place] [address] Care Team Providers Name Role Phone Luis Fernando Magana Primary Care Provider Reason for Visit Auth/Cert Specialty Diagnoses / Procedures Referred By Contact Refer red To Contact breaker oiler Diagnoses Maternity*JEAN MARIE: 03/07/2017 Rupture premature rupture of membranes (PPROM) delivered, current hospitalization [facility] [address] [place] [address] Phone: Referral ID Status Reason Start Date Expiration Date Visits Requ ested Visits Authorized [id number] 12/09/2016 12/09/2017 1 1 Encounter Details Date Type Department Care Team Description 12/23/2016 Hospital Encounter [facility] Lashawn Patel, Maternal Medicine [facility] [address] [place] [address] [place] [address] [phone] Social History Tobacco Use Types Packs/Day Years Used Date Smoking Tobacco: Every Day Cigarettes 0.1 10 Smokeless Tobacco: Never Comments: 5 cigarettes a day Alcohol Use Standard Drinks/Week Comments Yes 0 (1 standard drink = 0.6 oz pure Stoppe d after found out alcohol) Sex Assigned at Date Recorded Female 01/14/2020 10:57 AM DEAN OF STUDENTS documented as of this encounter Medications at [...] Visit Wound Care Luis Camara DPM [address] [place] [address] (Wo rk) 01/21/2022 PRE VISIT Gastroenterology Landon Warren, *-*WANDAIN G RECORDS*-* MD Luis Fernando [address] [address] (Wo rk) 01/21/2022 Office Visit Gastroenterology Juanis Levi [address] [place] [address] Luis Fernando Miles MD [address] [facility] [address] [place] [address] documented as of this encounter Procedures Procedure Name Priority Date/Time Associated Diagnosis Comme nts [facility] BPP SINGLE Routine 12/23/2016 8:37 AM Results for this DEAN OF STUDENTS procedure are i n the results section . documented in this encounter Results Maternal BPP Single (12/23/2016 8:37 AM DEAN OF STUDENTS) Anatomical Region Laterality Modality Ultrasound Specimen (Source) Anatomical Collection Method Collection Time Re ceived Time Location / / Volume Laterality 12/23/2016 8:05 AM DEAN OF STUDENTS Impressions 12/23/2016 11:10 AM DEAN OF STUDENTS IMPRESSION 1) Intrauterine at 29 3/7 week s gestational age. 2) The BPP is reassuring. 3) The amniotic fluid volume low consist ent with known PPROM. 4) There is a complete posterior/lateral placenta previa. Narrative 12/23/2016 11:10 AM DEAN OF STUDENTS BPP Pat. Name: STEPHANI REDDY Study Date: 8:05am Pat. NO: [id number] Referring ??: CHRIST LOZADA Site: [facility] Clinical Pharmacy Coordinator: Jay Lu : 1980 Age: 36 INDICATION Premature Rupture of Membranes ( PPROM) Complete previa. METHOD [facility] ANTEPARTUM inpatient exam, Transabd ominal [...] Pat. Name:Elizabeth REDDY Date:12/23 8:05am Pat. NO: [id number] MD:CHRIST BHAT ON [facility]Yesenia [facility] RDMS :1980Age:36 INDICATION Premature Rupture of Membranes ( PPROM) Complete previa. METHOD [facility] ANTEPARTUM inpatient exam, Transabd ominal [...] complete posterior/lateral placenta previa. Lashawn Patel MD [facility] US ORDERABLES documented in this encounter Visit Diagnoses Not on filedocumented in this encounter Care Teams Oil Refinery Process Technician Relationship Specialty Start Date End Date Luis Fernando Magana PCP - General Family Practice 12/07/16 01/19/[address] [address] documented as of this encounter
--- OUTSIDE RECORDS SUMMARY | 2021-12-14 16:24 | XMS_ITS | Encounter Summary ---
:1980 Author Organization [place] Address [address] [facility] [place] [address] Care Team Providers Name Role Phone Luis Fernando Magana Primary Care Provider Encounter Details Date Type Department Care Team Description 12/23/2016 Documentation Only [facility] Edgar Alfredo, [facility] [address] [place] [address] [place] [phone] (Wo rk) Social History Tobacco Use Types Packs/Day Years Used Date Smoking Tobacco: Every Day Cigarettes 0.1 10 Smokeless Tobacco: Never Comments: 5 cigarettes a day Alcohol Use Standard Drinks/Week Comments Yes 0 (1 standard drink = 0.6 oz pure Stoppe d after found out alcohol) Sex Assigned at Date Recorded Female 01/14/2020 10:57 AM TELEVISION SCRIPT WRITER documented as of this encounter Progress Notes [...] change now Will follow Edgar Alfredo M.D. [phone] VISION SCRIPT WRITER documented in this encounter Plan of Treatment Upcoming Encounters Date Type Specialty Care Team Description 12/20/2021 Office Visit Wound Care [facility] Luis Lex, DPM [address] [place] [address] (Wo rk) 01/21/2022 PRE VISIT Gastroenterology Landon Warren, *-*WANDAIN G RECORDS*-* MD Luis Fernando [address] [address] (Wo rk) 01/21/2022 Office Visit Gastroenterology Juanis Levi [address] [place] [phone] Luis Fernando Miles MD [address] [address] documented as of this encounter Visit Diagnoses Not on filedocumented in this encounter Care Teams Program Arranger Relationship Specialty Start Date End Date Luis Fernando Magana PCP - General Family Practice 12/07/16 01/19/[address] [address] documented as of this encounter
--- OUTSIDE RECORDS SUMMARY | 2021-12-14 16:24 | XMS_ITS | Encounter Summary ---
:1980 Author Organization [place] Address [address] [facility] [place] [address] Care Team Providers Name Role Phone Luis Fernando Magana Primary Care Provider Reason for Visit Reason Onset Date Comments No Show No Show 12/23/2016 Erroneous encounter-disregard 12/23/2016 Encounter Details Date Type Department Care Team Description 12/23/2016 Office Visit [facility] Edgar Workman NO SHOW ( Primary Dx); Clinic Ashly Gauthier MD ERRONEOUS ENCOUNTER--DISREGARD [address] [place] [address] [place] [phone] Social History Tobacco Use Types Packs/Day Years Used Date Smoking Tobacco: Every Day Cigarettes 0.1 10 Smokeless Tobacco: Never Comments: 5 cigarettes a day Alcohol Use Standard Drinks/Week Comments Yes 0 (1 standard drink = 0.6 oz pure Stoppe d after found out alcohol) Sex Assigned at Date Recorded Female 01/14/2020 10:57 AM ORNAMENTAL IRON WORKER HELPER documented as of this encounter Progress Notes Edgar Workman MD - 12/23/2016 12:47 PM CST This encounter was opened in error. Please disregard. MENTAL IRON WORKER HELPER Sabina Mckay CMA - 12/23/2016 10:42 AM CST This patient was a no show for this scheduled appointment. MENTAL IRON WORKER HELPER documented in this encounter Miscellaneous Notes Addendum Note - Edgar Workman MD - 12/23/2016 12:47 PM ORNAMENTAL IRON WORKER HELPER Addended by: EDGAR WORKMAN on: 12/23/2016 12:47 PM Modules accepted: SmartSet MENTAL IRON WORKER HELPER documented in this encounter Plan of Treatment Upcoming Encounters Date Type Specialty Care Team Description 12/20/2021 Office Visit Wound Care Luis Camara, [place] [address] [place] [address] (Wo rk) 01/21/2022 PRE VISIT Gastroenterology Landon Warren, *-*INCOMIN G RECORDS*-* MD Luis Fernando [address] [place] [address] (Wo rk) 01/21/2022 Office Visit Gastroenterology Juanis Levi [address] [place] [phone] Luis Fernando Miles MD [address] [place] [address] documented as of this encounter Visit Diagnoses Diagnosis NO SHOW - Primary ERRONEOUS ENCOUNTER--DISREGARD documented in this encounter Care Teams Residential Manager Relationship Specialty Start Date End Date Luis Fernando Magana PCP - General Family Practice 12/07/16 01/19/[address] [address] documented as of this encounter
--- OUTSIDE RECORDS SUMMARY | 2021-12-14 16:24 | XMS_ITS | Encounter Summary ---
:1980 Author Organization [place] Address [address] [facility] [place] [address] Care Team Providers Name Role Phone Luis Fernando Magana Primary Care Provider Reason for Referral - Closed Specialty Diagnoses / Procedures Referred By Contact Refer red To Contact Diagnoses Hepatitis C virus infection, unspecified chronicity Erum Manzanares MD [address] [place] [address] Referral ID Status Reason Start Date Expiration Date Visits Requ ested Visits Authorized [id number] Closed 12/13/2016 12/13/2017 1 1 Encounter Details Date Type Department Care Team Description 12/13/2016 Orders Only [facility] Erum Manzanares patitis C virus [facility] Birthplace MD Tigist infection, [address] unspecified [facility] [address] [address] chronicity (Primary [phone] [place] [address] Dx) [phone] (Wo rk) Social History Tobacco Use Types Packs/Day Years Used Date Smoking Tobacco: Every Day Cigarettes 0.1 10 Smokeless Tobacco: Never Comments: 5 cigarettes a day Alcohol Use Standard Drinks/Week Comments Yes 0 (1 standard drink = 0.6 oz pure Stoppe d after found out alcohol) Sex Assigned at Date Recorded Female 01/14/2020 10:57 AM PASTE MIXER documented as of this encounter Plan of Treatment Upcoming Encounters Date Type Specialty Care Team Description 12/20/2021 Office Visit Wound Care [facility] Luis Lex, DPM [address] [place] [address] (Wo rk) 01/21/2022 PRE VISIT Gastroenterology Landon Warren, *-*WANDAIN G RECORDS*-* MD Luis Fernando [address] [address] (Wo rk) 01/21/2022 Office Visit Gastroenterology Juanis Levi [address] [place] [phone] Luis Fernando Miles MD [address] [address] Scheduled Referrals Name Type Priority Associated Diagnoses Order S chedule GASTROENTEROLOGY ADULT REF Referral Routine Hepatitis C vi brittny Ordered: CONSULT ONLY infection, unspecified 12/13 chronicity documented as of this encounter Visit Diagnoses Diagnosis Hepatitis C virus infection, unspecified chronicity - Primary documented in this encounter Care Teams Thermometer Tester Relationship Specialty Start Date End Date Luis Fernando Magana PCP - General Family Practice 12/07/16 01/19/[address] [address] documented as of this encounter
--- OUTSIDE RECORDS SUMMARY | 2021-12-14 16:24 | XMS_ITS | Encounter Summary ---
:1980 Author Organization [facility] Address [address] [place] [address] Care Team Providers Name Role Phone Luis Fernando Magana Primary Care Provider Reason for Visit Reason Comments Rule out rupture of membranes Auth/Cert Specialty Diagnoses / Procedures Referred By Contact Refer red To Contact pmo project manager Diagnoses Maternity*JEAN MARIE: 03/07/2017 Rupture premature rupture of membranes (PPROM) delivered, current hospitalization Ur [facility] [address] [place] [address] Phone: Referral ID Status Reason Start Date Expiration Date Visits Requ ested Visits Authorized [id number] 12/09/2016 12/09/2017 1 1 Encounter Details Date Type Department Care Team Description 12/24/2016 Surgery [facility] CatieSo dubois Moraima, Section Immediate PeriOp Services Hysterectomy, Bilateral [address] [place] [address] [address] Cystoscopy. Baby Boy born [phone] [place], [place] at 20:05 [id number] Surgery Details Date/Time [...] at Date Recorded Female 01/14/2020 10:57 AM CRIMINAL DEFENSE LAWYER documented as of this encounter Last Filed Vital Signs Vital Sign Reading Time Taken Comments Blood Pressure 112/68 12/24/2016 4:00 PM CRIMINAL DEFENSE LAWYER Pulse 101 12/19/2016 12:39 PM CDT Temperature 36.7 ??C (98 ??F) 12/24/2016 4:00 PM CRIMINAL DEFENSE LAWYER Respiratory Rate 18 12/24/2016 4:00 PM CRIMINAL DEFENSE LAWYER Oxygen Saturation - - Inhaled Oxygen Concentration - - Weight 83.9 kg (185 lb) 12/24/2016 6:25 AM CRIMINAL DEFENSE LAWYER Height 167.6 cm (5' 6) 12/07/2016 2:19 PM CDT Body Mass Index 29.68 12/07/2016 2:19 PM CDT documented in this encounter Discharge Summaries Petrona Barone DO - 12/27/2016 8:18 AM CST [facility] Discharge Summary Deann King Age: [age] [...] uncomplicated. She was initially given a dilaudid COMPUTER AIDED DESIGN TECHNICIAN, but was transitioned to PO medications on [...] Discharge Medications: Deann King Home Medication Instructions MAILE:[id number] Printed on:12/28/16 3326 Medication Information acetaminophen (TYLENOL) 325 MG tablet [...] machinery while on narcotics. Marleny Kang MD BARGE MASTER PGY-3 I agree with above discharge summary Petrona Barone DO FACOG Maternal Medicine Specialist Pager: [phone] INAL DEFENSE LAWYER documented in this encounter Discharge Instructions Discharge InstructionsErika Villalpando RN - 12/27/2016 7:51 AM CRIMINAL DEFENSE LAWYER Postop Instructions Activity ?? Do not lift [...] questions or concerns after you return home. INAL DEFENSE LAWYER documented in this encounter Medications at Time [...] Deann and John are on [facility]. John will be on WIC. At this time Deann has a car seat without a base for the baby. Deann mentioned she has a social services manager Francisco who helps them with the children. SW spoke with [facility] and they report that the family has been assigned to Francisco Silverman [phone] who is lead case manager with CPS ongoing. (Francisco is out of office until 01/27/17, this service writer left ). Deann has history of substance use disorder and has been sober for 8 years. She is followed closely by Dr. Alfredo and is on Subutex. Deann also struggles with anxiety and depression, at this time she reports she is doing well. I)SW confirmed with pt's [facility] [phone] that Deann is able to schedule one [...] up to visit. SW spoke with NICU bilingual case manager and SW informed Deann that an exception would not be made. SW left GIOVANNA at bedside for Deann to sign so that this service writer can coordinate care with [facility] social services manager Francisco. A)JACKIE spoke with MOB Deann [...] Tinoco DO - 12/27/2016 5:20 AM CST [facility] Post- Note Name: Deann King S: [...] Routine management: Pain: S/p TAP blocks and COMPUTER AIDED DESIGN TECHNICIAN. Scheduled ibuprofen and tylenol. PO oxycodone 20 [...] plan regarding pain management Marleny Kang MD Commercial Property Manager, PGY-3 Physician Attestation I, Petrona Fariae Barone, [...] regarding post c/hyst, opioid dependence, discharge instructions. INAL DEFENSE LAWYER Petrona Barone DO - 12/26/2016 6:42 AM CST [facility] Note Name: Deann King S: Patient [...] Routine management: Pain: S/p TAP blocks and COMPUTER AIDED DESIGN TECHNICIAN. Scheduled toradol, tylenol. PRN IV dilaudid and [...] and meeting postoperative goals Marleny Kang MD Commercial Property Manager, PGY-3 Physician Attestation IPetrona DO, saw and [...] coordinating care regarding postop care from claire/hyst. INAL DEFENSE LAWYER Marleny Kang MD - 12/25/2016 9:54 PM [...] oximetry, discussed with RN. Marleny Kang MD BARGE MASTER PGY-3 Marilu Munguia MD - 12/25/2016 9:38 PM CST I have seen and examined this patient this AM (note delayed). She is HD stable and tolerating her recovery to date. WE have discussed the implication of her surgery and she is aware that she will not be able to have additional children, but is grateful to be feeling well. Marilu Lam INAL DEFENSE LAWYER Barone, Petrona Escoto, DO - 12/25/2016 5:44 AM CST [facility] Note Name: Deann King S: Patient [...] b/l I/O last 3 completed shifts: In: 87186 [I.V.:4800] Out: 5900 [Urine:900; Blood:5000] Hgb: Hemoglobin [...] 2. cares: Pain: S/p TAP blocks. Dilaudid COMPUTER AIDED DESIGN TECHNICIAN with scheduled tylenol. Holding NSAIDs until Hgb [...] Hypothyroidism: - Continue synthroid. Marleny Kang MD Commercial Property Manager, PGY-3 Physician Attestation Petrona Powers DO, saw [...] tolerance. Labs stable. Toradol given now. Increase COMPUTER AIDED DESIGN TECHNICIAN to 0.3mg continuous with 0.3-0.5mg bumps. Total [...] regarding post op pain, recovery plan, etc. INAL DEFENSE LAWYER Marleny Kang MD - 12/25/2016 2:56 AM CST [facility] Note Name: Deann King S: Patient [...] b/l I/O last 3 completed shifts: In: 53428 [I.V.:4800] Out: 5900 [Urine:900; Blood:5000] Hgb: Hemoglobin [...] 2. cares: Pain: S/p TAP blocks. Dilaudid COMPUTER AIDED DESIGN TECHNICIAN with scheduled tylenol, will increase demand dose. Holding NSAIDsuntil Hgb stabilizes. Continue home subutex for history of substance abuse. Supportive measures including warm packs, abdominal binder. GI: CLD, advance as tolerated. Scheduled bowel regimen ordered. : Duarte in place, strict Is/Os. Daily weights. Rh: Positive. Rubella: Non-immune, MMR ordered. Mood: Continue home effexor, wellbutrin. SW is following patient. Marleny Kang MD Commercial Property Manager, PGY-3 12/25/2016, 2:28 AM INAL DEFENSE LAWYER Yareli Greenwood RN - 12/24/2016 8:35 PM [...] and fundal checks if uterus not removed. INAL DEFENSE LAWYER Petrona Barone DO - 12/24/2016 7:07 PM [...] Dr. Barone M staff and Dr. Nunez BARGE MASTER staff were notified. Delivery plan was confirmed [...] OR notified, proceed urgently. Marleny Kang MD BARGE MASTER PGY-3 MFM staff note: Called regarding change in clinical status for patient. Delivery indicated in the setting of pretermcervical dilation, hemorrhage with known posterior placenta previa/possible accreta and prolonged ROM. S/p BMZ nearly 2 weeks ago. Magnesium sulfate for DINING SERVICE INSPECTOR recommended. Type and cross with blood in OR. Petrona Barone DO FACOG Maternal Medicine Specialist Pager: [phone] INAL DEFENSE LAWYER Petrona Barone DO - 12/24/2016 10:18 AM [...] 140s, moderate variability, present accels, absent decels [place]: no contractions or irritability noted Imaging: See [...] bleeding. Plan c-hyst unless previa resolves with [facility] double staff. - Care conference scheduled [...] million. Needs follow up with GI or Front End Alignment Specialist for treatment options . - Notify NICU [...] with Dr. Barone. Tatyana Walsh MD MPH BARGE MASTER, PGY3 Pager: [phone] 12/23/2016 10:04 AM Physician Attestation Petrona Powers [...] and/or coordinating care regarding PPROM, complete previa. INAL DEFENSE LAWYER Marleny Kang MD - 12/23/2016 11:56 PM [...] team of new symptoms. Marleny Kang MD BARGE MASTER PGY-3 INAL DEFENSE LAWYER Petrona Barone DO - 12/23/2016 10:04 AM [...] 130s, moderate variability, present accels, absent decels [place]: quiet, no contractions Assessment/Plan: Deann King is [...] - Needs follow up with GI or Front End Alignment Specialist for treatment options . ? 5) History [...] with Dr. Barone. Tatyana Walsh MD MPH BARGE MASTER, PGY3 Pager: [phone] 12/23/2016 10:04 AM Physician Attestation I, Petrona [...] 6. Hepatitis C - s/p GI at [facility] in 2013, genotype 1a - [...] patient): December 22, 2016 Nora Mohamud MD Temperature Inspector, BARGE MASTER Maternal- Medicine [email or web address] [phone] (Academic office) [phone] (Pager) INAL DEFENSE LAWYER Nora Mohamud MD - 12/21/2016 11:52 AM [...] 6. Hepatitis C - s/p GI at [facility] in 2013, genotype 1a, inpatient [...] patient): December 21, 2016 Nora Mohamud MD Temperature Inspector, BARGE MASTER Maternal- Medicine [email or web address] [phone] (Academic office) [phone] (Pager) Apple Sen RD - 12/20/2016 11:41 [...] protocol. Apple Sen RD, LD Unit Pager: [phone] Lashawn Patel MD - 12/20/2016 8:59 AM [...] moderate variability, + accels, rare variable decels [place]: quiet, 0 ctx in 10 minutes Assessment/Plan: [...] bleeding. Plan c-hyst unless previa resolves with [facility] double staff. ? 3. FWB: - [...] - Needs follow up with GI or Front End Alignment Specialist for treatment options . ? 5. History [...] accels, absent decels - appropriate for GA. [place]: no contractions No intervention needed at this time. Tatyana Walsh MD MPH BARGE MASTER, PGY3 Pager: [phone] 12/19/2016 11:56 PM Lashawn Patel MD - [...] 130s, moderate variability, + accels, no decels [place]: quiet, 0 ctx in 10 minutes Assessment/Plan: [...] - Needs follow up with GI or Front End Alignment Specialist for treatment options . ? 5. History [...] accels, absent decels - appropriate for GA. [place]: no contractions No intervention needed at this time. Tatyana Walsh MD MPH BARGE MASTER, PGY3 Pager: [phone] 12/19/2016 3:13 AM Lashawn Patel MD - [...] 130s, moderate variability, + accels, no decels [place]: quiet, 0 ctx in 10 minutes Assessment/Plan: [...] - Needs follow up with GI or Front End Alignment Specialist for treatment options . ? 5. History [...] weeks from dose increase. Marleny Kang MD BARGE MASTER PGY-3 Physician Attestation ILashawn, saw this patient [...] from scratching area. Tatyana Walsh MD MPH BARGE MASTER, PGY3 Pager: [phone] 12/18/2016 12:08 AM Marleny Kang MD - 12/17/2016 12:35 PM CDT BARGE MASTER Progress Note Patient complaining of right ear pain. Notes some mild nasal stuffiness. Denies fever, postnasal drip, hearing changes, other signs of systemic illness including fevers. Denies history of ear infection. Gently cleans ears. Otoscopic exam without exudate or signs of infection, clear TM, no tenderness with motion. Will give debrox drops and monitor for symptoms. Marleny Kang MD BARGE MASTER PGY-3 Marleny Kang MD - 12/17/2016 11:29 AM CDT BARGE MASTER Progress Note Patient seen at bedside to [...] attempt at this time. Marleny Kang MD BARGE MASTER PGY-3 Lashawn Patel MD - 12/17/2016 6:56 [...] 150's, moderate variability, + accels, no decels [place]: Quiet Assessment/Plan: Deann King is a 36 [...] - Needs follow up with GI or Front End Alignment Specialist for treatment options . ? 5. History [...] accels, absent decels - appropriate for GA. [place]: no contractions No intervention needed at this time. Tatyana Walsh MD MPH BARGE MASTER, PGY3 Pager: [phone] 12/17/2016 Lashawn Patel MD - 12/16/2016 6:54 [...] 140s, moderate variability, + accels, no decels [place]: 0 ctx in 10 minutes, quiet Assessment/Plan: [...] - Needs follow up with GI or Front End Alignment Specialist for treatment options . ? 5. History [...] and acupuncture as needed. Marleny Kang MD BARGE MASTER PGY-3 Physician Attestation I, Lashawn Patel, saw [...] accels, absent decels - appropriate for GA. [place]: no contractions No intervention needed at this time. Tatyana Walsh MD MPH BARGE MASTER, PGY3 Pager: [phone] 12/16/2016 2:14 AM Petrona Barone DO - [...] moderate variability, present accelerations (10x10), absent decelerations [place]: No contractions noted 12/03 MR IMPRESSION: 1. [...] - Needs follow up with GI or Front End Alignment Specialist for treatment options . ? 5. History [...] 150, moderate variability, present accelerations, absent decelerations [place]: No contractions noted 12/03 MR IMPRESSION: 1. [...] - Needs follow up with GI or Front End Alignment Specialist for treatment options . ? 5. History [...] patient, she is agreeable. Elizabeth Manzanares MD BARGE MASTER Resident PGY4 Pager [phone] 12/13/16 Echo Graham, [...] (nausea, vomiting) up until about a week ETHNOLOGY PROFESSOR. Over the past 2 weeks she has [...] protocol. Echo Graham RD, LD Unit Pager: [phone] Nora Mohamud MD - 12/13/2016 8:50 AM [...] variable decels. Overall appropriate for gestational age. [place]: no contractions, quiet ? US (12/08): posterior/left [...] - Needs follow up with GI or Front End Alignment Specialist for treatment options . ? 5. History [...] the treatment of hepatitis C with a consumer insight manager. A consultation was placed to discuss management [...] 6. Hepatitis C - s/p GI at [facility] in 2013, genotype 1a, inpatient [...] patient): December 13, 2016 Nora Mohamud MD Temperature Inspector, BARGE MASTER Maternal- Medicine [email or web address] [phone] (Academic office) [phone] (Pager) Tatyana Walsh MD - 12/13/2016 3:23 AM CDT Strip Review (Not delayed due to patient care) FHT: Baseline 150s bpm, moderate variability, prolonged accels, absent decels - appropriate for GA. [place]: no contractions No intervention required at this time. Tatyana Walsh MD MPH BARGE MASTER, PGY3 Pager: [phone] 12/13/2016 3:23 AM Jess Bernstein LICSW - 12/12/2016 11:11 AM CDT Met with patient today and completed [employer] application. Application faxed today. SW will continue [...] small decels. Overall appropriate for gestational age. [place]: no contractions, quiet ? US (12/08): posterior/left [...] - Needs follow up with GI or Front End Alignment Specialist for treatment options . ? 5. History [...] 6. Hepatitis C - s/p GI at [facility] in 2013, genotype 1a - [...] patient): December 12, 2016 Nora Mohamud MD Temperature Inspector, BARGE MASTER Maternal- Medicine [email or web address] [phone] (Academic office) [phone] (Pager) Tatyana Walsh MD - 12/12/2016 12:53 AM CDT Strip Review (Not delayed due to patient care, services at 2200 on 12/11/2016) FHT: Baseline 140-150s bpm, moderate variability, prolonged accels, absent decels - appropriate for GA. [place]: no contractions No intervention required at this time. Tatyana Walsh MD MPH BARGE MASTER, PGY3 Pager: [phone] 12/12/2016 12:53 AM Nora Kovacs, PT - [...] agreement with plan of care Yes [facility] [employer] TM 6 Clicks ?? 2016, Trustees of [facility], under license to [employer]. All rights reserved. 6 Clicks Short Forms Basic Mobility Inpatient Short Form [facility]??? 6 Clicks V.2 Basic Mobility [...] small decels. Overall appropriate for gestational age. [place]: no contractions, quiet ? US (12/08): posterior/left [...] - Needs follow up with GI or Front End Alignment Specialist for treatment options . ? 5. History [...] 6. Hepatitis C - s/p GI at [facility] in 2013, genotype 1a - [...] patient): December 11, 2016 Nora Mohamud MD Temperature Inspector, BARGE MASTER Maternal- Medicine [email or web address] [phone] (Academic office) [phone] (Pager) Tatyana Walsh MD - 12/10/2016 11:23 PM CDT Strip Review FHT: Baseline 150s bpm, moderate variability, present accels, absent decels - appropriate for GA. [place]: no contractions No intervention needed at this time. Tatyana Walsh MD MPH BARGE MASTER, PGY3 Pager: [phone] 12/10/2016 11:24 PM Jess Bernstein PROFESSOR OF OCEANOGRAPHY - 12/10/2016 11:49 AM CDT [facility] MATERNAL CHILD HEALTH SOCIAL WORK PROGRESS NOTE DATA: Met with Deann to assess needs and to offer support. Patient is 36 year-old, Deann King. She and her , Rafal have been for two years. They live in subsidized housing in [place], [place]. Deann and Rafal know they are [...] was in the NICU at [facility]. in November 2014 at 5 [...] work. Rafal works at a factory in [place].Rafal does not have his fork truck driver's license. Deann did not offer [...] Assistance, talamantes and food assistance benefits through [facility]. Baby Lopez will be added to these programs upon . Deann would like to switch her MA to [facility] and is asking for assistance with this. Encouraged Deann to contact [facility] Economic Assistance and ask to speak to a financial worker to see what is needed to make this change. Deann is not currently enrolled in [facility] but is interested in application for these benefits. JACKIE contacted [facility] today and message left for the Currency Exchange Specialist to see if it is possible to enroll Deann and her 4 year-old son in [facility] while Deann is hospitalized. Deann has only limited baby supplies-- some clothing and a swing. SW can provide assistance with a Pack N Play and diapers from [employer]. Deann has history of chemical abuse. She [...] this experience that having an ongoing social services manager can be helpful to her and to her children. She has been working with a SW at [facility] (Francisco [phone]) . Deann identifiesthis SW at very supportive. [...] results from her echo today from the broke handler. She informed us everything looked normal. She [...] small decels. Overall appropriate for gestational age. [place]: 1 contraction in 1 hour, not felt [...] - Needs follow up with GI or Front End Alignment Specialist for treatment options . ? 5. History [...] 6. Hepatitis C - s/p GI at [facility] in 2013, genotype 1a - [...] patient): December 10, 2016 Nora Mohamud MD Temperature Inspector, BARGE MASTER Maternal- Medicine [email or web address] [phone] (Academic office) [phone] (Pager) ?? Tatyana Walsh MD - 12/09/2016 10:46 PM CDT Strip Review FHT: Baseline 150s bpm, moderate variability, present accels, absent decels - appropriate for GA. [place]: 1 contractions/30 mins No intervention needed at this time. Hypothyroidism - TSH returned at normal range - no change to current synthroid needed. Depression - pending psych consult at this time. Continue home effexor. Tatyana Walsh MD MPH BARGE MASTER, PGY3 Pager: [phone] 12/09/2016 10:46 PM Nora Mohamud MD - [...] 130s, moderate variability, + accels, no decels [place]: quiet, 0 ctx in 10 minutes US [...] will follow-up on administration. Marleny Kang MD BARGE MASTER PGY-3 Maternal- Medicine Attending Addendum Late entry, [...] 6. Hepatitis C - s/p GI at [facility] in 2013, genotype 1a - [...] patient): December 09, 2016 Nora Mohamud MD Temperature Inspector, BARGE MASTER Maternal- Medicine [email or web address] [phone] (Academic office) [phone] (Pager) Tatyana Walsh MD - 12/08/2016 7:58 PM CDT Strip Review FHT: Baseline 150s bpm, moderate variability, present accels, absent decels - appropriate for GA. [place]: no contractions, uterine irritability Tatyana Walsh MD MPH BARGE MASTER, PGY3 Pager: [phone] 12/08/2016 8:00 PM Italia Galarza, DO - [...] 140s, moderate variability, + accels, no decels [place]: 0 ctx in 10 minutes US (12/08): [...] and Tdap ordered today. Marleny Kang MD BARGE MASTER PGY-3 Attending Attestation: I agree with the residents note above. I spent 15 minutes total [id number] with this inpatient, and >50% of the [...] toxicity at this time. Rossana Barker MD Commercial Property Manager, PGY-3 12/08/2016, 2:23 AM documented in this encounter H&P Notes [place] MD - 12/07/2016 3:06 PM CDT [facility] OB History and Physical Deann King [...] Negative Negative for C. trachomatis rRNA by rfid systems architect mediated amplification. A negative result by rfid systems architect mediated amplification does not preclude the presence of C. trachomatis infection because results are dependent on proper and adequate collection, absence of inhibitors, and sufficient rRNA to be detected. [facility] 08/29/2016 Negative Negative for N. gonorrhoeae rRNA by rfid systems architect mediated amplification. A negative result by rfid systems architect mediated amplification does not preclude the presence [...] BREAST SURGERY ABcess drained ??? SECTION ??? BEHAVIORAL HEALTH WORKER SURGERY ??? ORTHOPEDIC SURGERY ??? THORACIC [...] 150, moderate variability, no accelerations, no decelerations [place]: 0 contractions in 10 minutes Assessment Ms. [...] Sofía Cao APRN, CNP, 12/20/2016 4:09 PM [facility] Intensive Care Unit So Onofre PsyD - [...] a consultation by Nora Mohamud MD at [facility] Antepartum. Patient is currentlyunemployed. She had been working for her mother's [employer] service, but had to stop due to [...] provider, she may schedule outpatient follow-up with [facility] (call [phone] and inform spot washer that you are or have recently had [...] and treatment recommendations with referring provider via [employer] Referral to another professional/service is not indicated [...] time to herself. She asked if this service writer could return tomorrow or later this afternoon, but this service writer told her that she is booked and won't be able to accommodate except for this morning. Shot Peening Operator mentioned at the end that if she [...] time to herself. She asked if this service writer could return tomorrow or later this afternoon, but this service writer told her that she is booked and won't be able to accommodate except for this morning. Shot Peening Operator mentioned at the end that if she [...] this service's next availability). Madonna Carrasquillo APRN CUFF RUNNER - 12/07/2016 5:00 PM CDTAssociated Order(s): NURSE [...] intraventricular hemorrhage, nutrition, growth and development, and half-way outcomes. Please feel free to call with any additional questions or concerns. Madonna Carrasquillo APRN, [facility] 12/07/2016 6:51 PM Nurse Practitioner Service Intensive Care Unit [facility] Floor Time (min): 5 Face to Face Time (min): 25 Total Time (minutes): 30 More than 50% of my time was spent in direct, face to face, antepartum counseling with the above patient. documented in this encounter Nursing Notes Lisa Rbuio RN - 12/25/2016 1:57 AM CST Pt had an A-line on arrival to PACU in left radial, line was leveled and Zeroed, after labs were drawn, [place] was removed with approval of Dr Torres. Site held for 5 minutes and dressing placed to Left wrist, no bleeding or oozing noted at that time. Pt VSS, capnography started, pt's family updated via phone, will report to floor RN. INAL DEFENSE LAWYER Lisa Rubio RN - 12/25/2016 1:42 AM CST PACU to Inpatient Nursing Handoff Patient Deann King is a 36 year old female who speaks Vietnamese. Procedure Procedure(s): Section Immediate Hysterectomy, Bilateral Salpingectomy [...] mg (total dose) last given at 0131 COMPUTER AIDED DESIGN TECHNICIAN / epidural Yes. COMPUTER AIDED DESIGN TECHNICIAN - hydromorphone (Dilaudid) Capnography Telemetry ECG Rhythm: [...] numbness;no tingling (12/24/16 0922) Equipment capnography and COMPUTER AIDED DESIGN TECHNICIAN Other LDA IV Access Peripheral IV 12/22/16 [...] 12/25/2016 12:05 AM Rationale for Continued Use Anesthesia;/GI/BEHAVIORAL HEALTH WORKER Pelvic Procedure 12/25/2016 12:05 AM Urine [...] the antepartum RN. Lisa Rubio, RN [facility] [id number] INAL DEFENSE LAWYER documented in this encounter Miscellaneous Notes Plan [...] questions and will d/c from inpatient PT. INAL DEFENSE LAWYER Associated attestation - Roxy Sr PT - 12/27/2016 6:21 PM CRIMINAL DEFENSE LAWYER Physical Therapy Discharge Summary Reason for therapy [...] leaving. F/U in clinic understood by patient. INAL DEFENSE LAWYER Plan of Care - Erika Villalpando RN - 12/27/2016 7:50 AM CST Referral made to [facility] for early dc. INAL DEFENSE LAWYER Plan of Care - Lucia Cotton RN [...] out which was taken to the nicu. INAL DEFENSE LAWYER Plan of Care - Hyacinth Wolf RN [...] more. Will continue with plan of Care. INAL DEFENSE LAWYER Note - Nikky Smith RNC - 12/26/2016 [...] to provide support. Nikky Smith, RNC, IBCLC INAL DEFENSE LAWYER Plan of Care - Lucia Cotton, RN [...] of without calling us to stand by. INAL DEFENSE LAWYER Plan of Care - Yessenia Julian RN [...] at bedside. Continue with plan of care. INAL DEFENSE LAWYER Provider Notification - Kristie Merida RN - 12/25/2016 9:01 PM CST Sepsis alert came up for pt. BP 91/63. HR of 115. SpO2 of 98. INAL DEFENSE LAWYER Plan of Care - Maria Antonia Hidalgo [...] and oral oxycodone given with initial relief. INAL DEFENSE LAWYER Provider Notification - Kristie Merida RN - 12/25/2016 7:48 PM CST Do you want pt to continue with IV Toradol and Dilaudid? FYI-pt is going outside to smoke. INAL DEFENSE LAWYER Plan of Care - Maria Antonia Hidalgo [...] Patient medicated during the shift with dilaudid COMPUTER AIDED DESIGN TECHNICIAN for pain, which was discontinued at 13:50. [...] any other needs. Anticipate discharge on Friday. INAL DEFENSE LAWYER Plan of Care - Maria Antonia Hidalgo [...] one hour. Fixed and working well now INAL DEFENSE LAWYER Plan of Care - Khloe Elmore RN - 12/25/2016 5:50 AM CST Problem: ( Delivery) (Adult,Obstetrics,Pediatric) Goal: Signs and Symptoms of Listed Potential Problems Will be Absent, Minimized or Managed () Signs and symptoms of listed potential problems will be absent, minimized or managed by discharge/transition of care (reference ( Delivery) (Adult,Obstetrics,Pediatric) CPG). Outcome: No Change Pt's pain intolerable with COMPUTER AIDED DESIGN TECHNICIAN @ 0.2mg dilaudid every 10 minutes, dose increased to 0.3mg every 10 minutes with max dose delivery 1.2mg/hr. Pt's pain remains intolerable, but getting better, she falls asleep between COMPUTER AIDED DESIGN TECHNICIAN doses. INAL DEFENSE LAWYER Op Note - So Nunez MD - 12/24/2016 11:53 PM CST [facility] Full Operative Progress Note Surgery Date: 12/24/2016 Surgeon: So Nunez MD Assistants: Marilu Lam MD Wafer Production Worker/Onc staff Petrona Barone MD MFM staff Donita Barrow MD MFM fellow Margarita Talbert MD Wafer Production Worker/Onc fellow Marleny Kang MD PGY-3 Tatyana Govea MD PGY-3 Kayla Davidson MD PGY-2 Exceptional Circumstances Require an Breaker Off Surgeon -Exceptional medical circumstances in this case required the participation of dental hygiene administrative assistant surgeons Drs. Barone and Idania in [...] entirety of the procedure. Marleny Kang MD Commercial Property Manager, PGY-3 12/24/2016, 11:54 PM I was present and scrubbed throughout the procedure, I agree with the note above So Nunez MD INAL DEFENSE LAWYER Brief Op Note - Marleny Kang MD - 12/24/2016 11:23 PM CST [facility] Hysterectomy Brief Operative Note Surgery Date: 12/24/2016 Surgeon: So Nunez MD; Marilu Lam MD (intraoperative consult) Assistants: Petrona Barone MD [facility] staff Donita Barrow MD MFM fellow Margarita Talbert MD Wafer Production Worker/Onc fellow Marleny Kang MD PGY-3 Tatyana Govea [...] Disposition: Stable to PACU Marleny Kang MD BARGE MASTER PGY-3 INAL DEFENSE LAWYER Op Note - Marilu Lam MD - 12/24/2016 10:18 PM CST DATE OF SERVICE: 12/07/2016 Remainder of this note will be dictated by Dr. Nunez's service and for my portion is as follows: ATTENDING: Marilu Lam MD MAINFRAME SYSTEMS PROGRAMMER: Dr. Talbert, PGY 7 ANESTHESIA: GET COMPLICATIONS: [...] LAM MD MT: Name: DEANN KING Account: [id number] : 1980 Procedure Date: 12/07/2016 Document: [id number] INAL DEFENSE LAWYER Plan of Care - Juanis Henson RN [...] Kang and questions answered. SCD's were placed. [facility] saw patient prior to transfer to the OR. There was no new bleeding after the spec exam and prior to transfer to cart. While transferto OR patient felt blood coming out and only a small amount was seen on perineum. Dr. Barone was updated on patient status while transfer to OR. INAL DEFENSE LAWYER Plan of Care - Juanis Henson RN - 12/24/2016 6:04 PM CST Problem: Patient Care Overview Goal: Plan of Care/Patient Progress Review Outcome: No Change Continues to have cramping. Intensity remains the same. Continue to monitor. INAL DEFENSE LAWYER Plan of Care - Nakia Figueroa PTA - 12/24/2016 4:18 PM CST Problem: PT General Care Plan Goal: PT target date for goal attainment PT: patient displayed improvement with pain and prior to treatment rated neck pain 4/10 and after manual therapy decreased to 0/10. Airport Operations Supervisor PT Patient plan for discharge: home Current status: patient independent with all mobilities and HEP Barriers to return to prior living situation: none Recommendations for discharge: home would benefit from OP PT for management of neck and back Rationale for recommendations: decrease back and neck pain and improve posture. Entered by: Nakia Figueroa 12/24/2016 4:17 PM INAL DEFENSE LAWYER Plan of Care - Petrona Sharif RN [...] 140s, with moderate variability and without decelerations. INAL DEFENSE LAWYER Plan of Care - Annie Allen RN [...] labor, signs/symptoms of infection, or /maternal compromise. INAL DEFENSE LAWYER Plan of Care - Annie Allen RN [...] reassured after exam. Continue plan of care. INAL DEFENSE LAWYER Provider Notification - Annie Allen RN - 12/24/2016 12:02 AM CST 12/24/16 0002 Provider Notification Provider Name/Title Dr. Kang Method of Notification Electronic Page Request Evaluate - Remote Notification Reason Other (Comment) Pt requesting UA/UC for increased urine frequency. Thanks INAL DEFENSE LAWYER Provider Notification - Juanis Henson RN - [...] see patient when she returns to floor. INAL DEFENSE LAWYER Plan of Care - Juanis Henson RN [...] symptoms. RN will talk with Dr. Kang. INAL DEFENSE LAWYER Plan of Care - Juanis Henson RN [...] ate, in case she progresses into labor. INAL DEFENSE LAWYER Provider Notification - Leslie Mendoza RN - 12/23/2016 3:35 PM CST 12/23/16 0755 Provider Notification Provider Name/Title Dr. Walsh, Dr. Barone, Med student Method of Notification At Bedside Request Evaluate in Person Notification Reason Status Update INAL DEFENSE LAWYER Plan of Care - Leslie Mendoza RN [...] labor, signs/symptoms of infection, or /maternal compromise. INAL DEFENSE LAWYER Provider Notification - Leslie Mendoza RN - 12/23/2016 12:31 PM CST 12/23/16 0945 OB Patient Position Activity/Level of Assist Ambulating Patient went outside INAL DEFENSE LAWYER Provider Notification - Leslie Mendoza RN - 12/23/2016 12:31 PM CST 12/23/16 0720 OB Patient Position Maternal Position Standing Activity/Level of Assist Ambulating Patient went outside (to smoke) INAL DEFENSE LAWYER Provider Notification - Leslie Mendoza RN - 12/23/2016 7:58 AM CST Providers here for morning rounds and EFM strip review. Patient concerned about her oral pain on hertongue. There is a sore/ulceration there. Providers reminding patient to NOT self examine digitally her cervix. INAL DEFENSE LAWYER Plan of Care - Bonita Love RN [...] Will continue with current plan of care. INAL DEFENSE LAWYER Provider Notification - Bonita Love RN - 12/22/2016 8:02 PM CRIMINAL DEFENSE LAWYER 12/22/162000 Provider Notification Provider Name/Title Dr. Kang Method of Notification In Department Notification Reason Other (Comment) Patient reporting increased leaking of fluid today. Yellow colored on pads, no odor. Patient is not having any abdominal tenderness. Afebrile. Pt declines monitoring at this time. Dr. Kang updated. INAL DEFENSE LAWYER Plan of Care - Yareli Marsh RN [...] today. Will continue with plan of care. INAL DEFENSE LAWYER Plan of Care - Wendy Richter RN [...] VSS; EFM as charted. Continue expectant management. INAL DEFENSE LAWYER Plan of Care - Wendy Richter RN - 12/22/2016 3:13 AM CST Due to daylight savings time, labor calculations, ruptured membrane calculations and/or cervical exams times may be off by up to one hour from the actual time. A summary of the times/calcuations follows: None for this patient. INAL DEFENSE LAWYER Plan of Care - So Cheng RN [...] son. They have been working on some [employer] blankExaprotectand watching movies. Pt continues to go outside [...] the bathroom for longer period of time. Airport Operations Supervisor PT Patient plan for discharge: home Current [...] to monitor and update providerwith any changes. [place] quiet and EFM mod variability, occasional accels, [...] No visitors last diana but worked on [employer] and did other crafts/games. No complaints today. [...] axillary as well as left upper abd. Easley, raised areas, itches but also dalton per [...] postural exercises and relief with suboccipital release. Airport Operations Supervisor PT Patient plan for discharge: home Current [...] functional goals as expected D: Patient called service writer into room at 1230 stating pain in her side after laughing at the cartoon onthe tv. Placed on EFM, no contractions noted accelerations and baby appropriate for gestational age.Patient called service writer back into room at 1305 stating [...] of Care/Patient Progress Review Outcome: No Change Shot Peening Operator went to assess vital signs. Pt. Stated that she had some reddish pink mucus in the toilet andsome pink fluid on the toilet tissue. Small quarter sized reddish pink mucus noted in the bottom of the toilet. Urine was yellow colored, no blood noted. Shot Peening Operator placed and uterine monitors on thepatient. Patient [...] scant bloody mucus in toilet when voided. Easley on toilet tissue. Dr. Cyr notified of [...] Pt declines at this time. With social services manager at this time. Pt declines a [...] within reach. Pt states understanding to put integrity consultant light if any change in condition. Plan [...] Overview Goal: Plan of Care/Patient Progress Review Airport Operations Supervisor PT Patient plan for discharge: Home Current [...] 3:06 PM Plan of Care - Carol Csatle RN - 12/11/2016 2:38 PM CDT Problem: [...] within reach. Pt states understanding to put integrity consultant light if any changes in condition. Plan [...] RN - 12/10/2016 5:32 PM CDT 12/10/16 0787 Provider Notification Provider Name/Title Dr. Kang Method [...] orintensity. Abdomen palpates soft, and toco didn't shrimp picker any contractions. FHT: mod variability with [...] Visit Wound Care Luis Camara, [place] [place] [address] (Wo rk) 01/21/2022 PRE VISIT Gastroenterology Landon Warren, *-*HEATHER Barriga RECORDS*-* MD Luis Fernando [address] [place] [phone] (Wo rk) 01/21/2022 Office Visit Gastroenterology Juanis Levi [address] [place] [phone] Luis Fernando Miles MD [address] [place] [phone] Pending Results Name Type Priority Associated Date/Time Diagnoses Transfuse red blood Nursing Transfusion STAT 1 02/24/2016 8:10 cell unit PM CRIMINAL DEFENSE LAWYER Transfuse red blood Nursing Transfusion STAT 1 02/24/2016 8:15 cell unit PM CRIMINAL DEFENSE LAWYER Transfuse plasma unit Nursing Transfusion Routine 12/24/2016 8:48 PM CRIMINAL DEFENSE LAWYER Transfuse red blood Nursing Transfusion STAT 1 02/24/2016 8:42 cell unit PM CRIMINAL DEFENSE LAWYER Transfuse red blood Nursing Transfusion STAT 1 02/24/2016 9:30 cell unit PM CRIMINAL DEFENSE LAWYER Transfuse red blood Nursing Transfusion STAT 1 02/24/2016 8:59 cell unit PM CRIMINAL DEFENSE LAWYER Transfuse red blood Nursing Transfusion STAT 1 02/24/2016 8:58 cell unit PM CRIMINAL DEFENSE LAWYER Transfuse red blood Nursing Transfusion STAT 1 02/24/2016 8:47 cell unit PM CRIMINAL DEFENSE LAWYER Placenta path order and Lab Routine 08/2016 8:05 indications PM CRIMINAL DEFENSE LAWYER Transfuse platelets Nursing Transfusion Routine 1 02/24/2016 9:19 unit PM CRIMINAL DEFENSE LAWYER Transfuse red blood Nursing Transfusion STAT 1 02/24/2016 10:15 cell unit PM CRIMINAL DEFENSE LAWYER Transfuse red blood Nursing Transfusion STAT 1 02/24/2016 10:50 cell unit PM CRIMINAL DEFENSE LAWYER Transfuse red blood Nursing Transfusion STAT 1 02/24/2016 9:56 cell unit PM CRIMINAL DEFENSE LAWYER Cryoprecipitate prepare Blood Bank Routine Chronic hepatitis 12/24/2016 10:59 order unit C without hepatic PM CRIMINAL DEFENSE LAWYER coma (H) Transfuse Nursing Transfusion Routine 12/25/19 17 11:10 cryoprecipitate unit PM CRIMINAL DEFENSE LAWYER Scheduled Referrals Name Type Priority Associated Diagnoses Order S chedule GASTROENTEROLOGY ADULT REF Referral Routine Chronic hepati tis C Ordered: 12/26/2016 CONSULT ONLY without hepatic coma (H) DENTAL REFERRAL Referral Routine Dental caries Ordered: documented as of this encounter Procedures Procedure Name Priority Date/Time Associated Comments Diagnosis CBC WITH PLATELETS Routine 12/26/2016 8:10 Chronic hepatitis R esults for this AM CRIMINAL DEFENSE LAWYER C without hepatic procedure are in coma (H) the results section. CBC WITH PLATELETS Timed 12/25/2016 2:04 Chronic hepatitis R esults for this PM CRIMINAL DEFENSE LAWYER C without hepatic procedure are in coma (H) the results section. INR Timed 12/25/2016 7:00 Chronic hepatitis Results for this AM CRIMINAL DEFENSE LAWYER C without hepatic procedure are in coma (H) the results section. PARTIAL THROMBOPLASTIN Timed 12/25/2016 7:00 Chronic hepatit is Results for this TIME AM CRIMINAL DEFENSE LAWYER C without hepatic procedure are in coma (H) the results section. MAGNESIUM Timed 12/25/2016 7:00 Chronic hepatitis Results for this AM CRIMINAL DEFENSE LAWYER C without hepatic procedure are in coma (H) the results section. FIBRINOGEN ACTIVITY Timed 12/25/2016 7:00 Chronic hepatitis Results for this AM CRIMINAL DEFENSE LAWYER C without hepatic procedure are in coma (H) the results section. BASIC METABOLIC PANEL Timed 12/25/2016 7:00 Chronic hepatiti s Results for this AM CRIMINAL DEFENSE LAWYER C without hepatic procedure are in coma (H) the results section. CBC WITH PLATELETS Timed 12/25/2016 7:00 Chronic hepatitis R esults for this AM CRIMINAL DEFENSE LAWYER C without hepatic procedure are in coma (H) the results section. INR Routine 12/25/2016 12:54 Chronic hepatitis Result s for this AM CRIMINAL DEFENSE LAWYER C without hepatic procedure are in coma (H) the results section. PARTIAL THROMBOPLASTIN Routine 12/25/2016 12:54 Chronic hepati tis Results for this TIME AM CRIMINAL DEFENSE LAWYER C without hepatic procedure are in coma (H) the results section. FIBRINOGEN ACTIVITY Routine 12/25/2016 12:54 Chronic hepatitis Results for this AM CRIMINAL DEFENSE LAWYER C without hepatic procedure are in coma (H) the results section. BASIC METABOLIC PANEL Routine 12/25/2016 12:54 Chronic hepatit is Results for this AM CRIMINAL DEFENSE LAWYER C without hepatic procedure are in coma (H) the results section. CBC WITH PLATELETS Routine 12/25/2016 12:54 Chronic hepatitis Results for this AM CRIMINAL DEFENSE LAWYER C without hepatic procedure are in coma (H) the results section. XR ABDOMEN PORT 1 VIEW STAT 12/24/2016 11:10 R esults for this PM CRIMINAL DEFENSE LAWYER procedure are i n the results section. TRANSFUSE Routine 12/24/2016 11:10 CRYOPRECIPITATE UNIT PM CRIMINAL DEFENSE LAWYER BLOOD COMPONENT Routine 12/24/2016 10:59 Chronic hepatitis Res ults for this PM CRIMINAL DEFENSE LAWYER C without hepatic procedure are in coma (H) the results section. PREPARE CRYOPRECIPITATE Routine 12/24/2016 10:59 Chronic hepat itis (SINGLE UNIT) PM CRIMINAL DEFENSE LAWYER C without hepatic coma (H) TRANSFUSE RED BLOOD CELL STAT 12/24/2016 10:50 UNIT PM CRIMINAL DEFENSE LAWYER ARTERIAL PANEL Routine 12/24/2016 10:45 Chronic hepatitis Resu lts for this PM CRIMINAL DEFENSE LAWYER C without hepatic procedure are in coma (H) the results section. TRANSFUSE RED BLOOD CELL STAT 12/24/2016 10:15 UNIT PM CRIMINAL DEFENSE LAWYER SURGICAL PATHOLOGY EXAM Routine 12/24/2016 10:13 Results for this PM CRIMINAL DEFENSE LAWYER procedure are i n the results section. TRANSFUSE RED BLOOD CELL STAT 12/24/2016 9:56 UNIT PM CRIMINAL DEFENSE LAWYER ARTERIAL PANEL Routine 12/24/2016 9:50 Chronic hepatitis Resul ts for this PM CRIMINAL DEFENSE LAWYER C without hepatic procedure are in coma (H) the results section. INR Routine 12/24/2016 9:50 Chronic hepatitis Results for this PM CRIMINAL DEFENSE LAWYER C without hepatic procedure are in coma (H) the results section. PARTIAL THROMBOPLASTIN Routine 12/24/2016 9:50 Chronic hepatit is Results for this TIME PM CRIMINAL DEFENSE LAWYER C without hepatic procedure are in coma (H) the results section. FIBRINOGEN ACTIVITY Routine 12/24/2016 9:50 Chronic hepatitis Results for this PM CRIMINAL DEFENSE LAWYER C without hepatic procedure are in coma (H) the results section. CBC WITH PLATELETS Routine 12/24/2016 9:50 Chronic hepatitis R esults for this PM CRIMINAL DEFENSE LAWYER C without hepatic procedure are in coma (H) the results section. TRANSFUSE RED BLOOD CELL STAT 12/24/2016 9:30 UNIT PM CRIMINAL DEFENSE LAWYER ARTERIAL PANEL Routine 12/24/2016 9:20 Chronic hepatitis Resul ts for this PM CRIMINAL DEFENSE LAWYER C without hepatic procedure are in coma (H) the results section. TRANSFUSE PLATELETS UNIT Routine 12/24/2016 9:19 PM CRIMINAL DEFENSE LAWYER TRANSFUSE RED BLOOD CELL STAT 12/24/2016 8:59 UNIT PM CRIMINAL DEFENSE LAWYER TRANSFUSE RED BLOOD CELL STAT 12/24/2016 8:58 UNIT PM CRIMINAL DEFENSE LAWYER TRANSFUSE PLASMA UNIT Routine 12/24/2016 8:48 PM CRIMINAL DEFENSE LAWYER TRANSFUSE RED BLOOD CELL STAT 12/24/2016 8:47 UNIT PM CRIMINAL DEFENSE LAWYER BLOOD COMPONENT Routine 12/24/2016 8:45 Chronic hepatitis Resu lts for this PM CRIMINAL DEFENSE LAWYER C without hepatic procedure are in coma (H) the results section. BLOOD COMPONENT Routine 12/24/2016 8:45 Chronic hepatitis Resu lts for this PM CRIMINAL DEFENSE LAWYER C without hepatic procedure are in coma (H) the results section. PREPARE PLATELETS ORDER Routine 12/24/2016 8:45 Chronic hepati tis Results for this UNIT PM CRIMINAL DEFENSE LAWYER C without hepatic procedure are in coma (H) the results section. ARTERIAL PANEL Routine 12/24/2016 8:44 Chronic hepatitis Resul ts for this PM CRIMINAL DEFENSE LAWYER C without hepatic procedure are in coma (H) the results section. INR Routine 12/24/2016 8:44 Chronic hepatitis Results for this PM CRIMINAL DEFENSE LAWYER C without hepatic procedure are in coma (H) the results section. PARTIAL THROMBOPLASTIN Routine 12/24/2016 8:44 Chronic hepatit is Results for this TIME PM CRIMINAL DEFENSE LAWYER C without hepatic procedure are in coma (H) the results section. FIBRINOGEN ACTIVITY Routine 12/24/2016 8:44 Chronic hepatitis Results for this PM CRIMINAL DEFENSE LAWYER C without hepatic procedure are in coma (H) the results section. CBC WITH PLATELETS Routine 12/24/2016 8:44 Chronic hepatitis R esults for this PM CRIMINAL DEFENSE LAWYER C without hepatic procedure are in coma (H) the results section. TRANSFUSE RED BLOOD CELL STAT 12/24/2016 8:42 UNIT PM CRIMINAL DEFENSE LAWYER ARTERIAL PANEL Routine 12/24/2016 8:25 Chronic hepatitis Resul ts for this PM CRIMINAL DEFENSE LAWYER C without hepatic procedure are in coma (H) the results section. PLACENTA PATH ORDER AND Routine 12/24/2016 8:05 INDICATIONS PM CRIMINAL DEFENSE LAWYER BLOOD COMPONENT Routine 12/24/2016 7:25 Chronic hepatitis Resu lts for this PM CRIMINAL DEFENSE LAWYER C without hepatic procedure are in coma (H) the results section. BLOOD COMPONENT Routine 12/24/2016 7:25 Chronic hepatitis Resu lts for this PM CRIMINAL DEFENSE LAWYER C without hepatic procedure are in coma (H) the results section. BLOOD COMPONENT Routine 12/24/2016 7:25 Chronic hepatitis Resu lts for this PM CRIMINAL DEFENSE LAWYER C without hepatic procedure are in coma (H) the results section. BLOOD COMPONENT Routine 12/24/2016 7:25 Chronic hepatitis Resu lts for this PM CRIMINAL DEFENSE LAWYER C without hepatic procedure are in coma (H) the results section. BLOOD COMPONENT Routine 12/24/2016 7:25 Chronic hepatitis Resu lts for this PM CRIMINAL DEFENSE LAWYER C without hepatic procedure are in coma (H) the results section. BLOOD COMPONENT Routine 12/24/2016 7:25 Chronic hepatitis Resu lts for this PM CRIMINAL DEFENSE LAWYER C without hepatic procedure are in coma (H) the results section. BLOOD COMPONENT Routine 12/24/2016 7:25 Chronic hepatitis Resu lts for this PM CRIMINAL DEFENSE LAWYER C without hepatic procedure are in coma (H) the results section. BLOOD COMPONENT Routine 12/24/2016 7:25 Chronic hepatitis Resu lts for this PM CRIMINAL DEFENSE LAWYER C without hepatic procedure are in coma (H) the results section. PREPARE PLASMA (UNIT) Routine 12/24/2016 7:25 Chronic hepatiti s Results for this PM CRIMINAL DEFENSE LAWYER C without hepatic procedure are in coma (H) the results section. HYSTERECTOMY, FOLLOWING 12/24/2016 7:24 SECTION PM CRIMINAL DEFENSE LAWYER CBC WITH PLATELETS & STAT 12/24/2016 7:06 Chronic hepatitis Results for this DIFFERENTIAL PM CRIMINAL DEFENSE LAWYER C without hepatic procedure are in coma (H) the results section. ROUTINE UA WITH Routine 12/24/2016 7:50 Chronic hepatitis Resu lts for this MICROSCOPIC REFLEX TO AM CRIMINAL DEFENSE LAWYER C without hepatic p rocedure are in CULTURE coma (H) the results section. URINE CULTURE Routine 12/24/2016 7:50 Chronic hepatitis Result s for this AM CRIMINAL DEFENSE LAWYER C without hepatic procedure are in coma (H) the results section. WET PREPARATION Routine 12/23/2016 11:53 Chronic hepatitis Res ults for this PM CRIMINAL DEFENSE LAWYER C without hepatic procedure are in coma (H) the results section. MFM BPP SINGLE Routine 12/23/2016 8:37 Results fo r this AM CRIMINAL DEFENSE LAWYER procedure are i n the results section. BLOOD COMPONENT Routine 12/23/2016 6:54 Chronic hepatitis Resu lts for this AM CRIMINAL DEFENSE LAWYER C without hepatic procedure are in coma (H) the results section. BLOOD COMPONENT Routine 12/23/2016 6:54 Chronic hepatitis Resu lts for this AM CRIMINAL DEFENSE LAWYER C without hepatic procedure are in coma (H) the results section. BLOOD COMPONENT Routine 12/23/2016 6:54 Chronic hepatitis Resu lts for this AM CRIMINAL DEFENSE LAWYER C without hepatic procedure are in coma (H) the results section. BLOOD COMPONENT Routine 12/23/2016 6:54 Chronic hepatitis Resu lts for this AM CRIMINAL DEFENSE LAWYER C without hepatic procedure are in coma (H) the results section. BLOOD COMPONENT Routine 12/23/2016 6:54 Chronic hepatitis Resu lts for this AM CRIMINAL DEFENSE LAWYER C without hepatic procedure are in coma (H) the results section. BLOOD COMPONENT Routine 12/23/2016 6:54 Chronic hepatitis Resu lts for this AM CRIMINAL DEFENSE LAWYER C without hepatic procedure are in coma (H) the results section. BLOOD COMPONENT Routine 12/23/2016 6:54 Chronic hepatitis Resu lts for this AM CRIMINAL DEFENSE LAWYER C without hepatic procedure are in coma (H) the results section. BLOOD COMPONENT Routine 12/23/2016 6:54 Chronic hepatitis Resu lts for this AM CRIMINAL DEFENSE LAWYER C without hepatic procedure are in coma (H) the results section. BLOOD COMPONENT Routine 12/23/2016 6:54 Chronic hepatitis Resu lts for this AM CRIMINAL DEFENSE LAWYER C without hepatic procedure are in coma (H) the results section. BLOOD COMPONENT Routine 12/23/2016 6:54 Chronic hepatitis Resu lts for this AM [employer] C without hepatic procedure are in coma (H) the results section. BLOOD COMPONENT Routine 12/23/2016 6:54 Chronic hepatitis Resu lts for this AM [employer] C without hepatic procedure are in coma (H) the results section. BLOOD COMPONENT Routine 12/23/2016 6:54 Chronic hepatitis Resu lts for this AM [employer] C without hepatic procedure are in coma (H) the results section. ABO/RH TYPE AND SCREEN Routine 12/23/2016 6:54 Chronic hepatit is Results for this AM [employer] C without hepatic procedure are in coma [...] are in coma (H) the results section. [facility] Routine 12/16/2016 9:24 Results for [...] procedure are i n the results section. [facility] Routine 12/12/2016 8:36 Results for this SINGLE/MULTIPLE AM CDT procedure ar e in the results section. ABO/RH TYPE AND SCREEN Timed 12/11/2016 9:05 Re sults for this AM CDT procedure are i n the results section. ECHO COMPLETE* Routine 12/10/2016 9:05 Resu lts for this AM CDT procedure are i n the results section. [facility] US COMPREHENSIVE Routine 12/08/2016 9:52 Resu [...] (ABNORMAL) CBC with platelets (12/26/2016 8:10 AM [employer]ER) [facility] Method Time Signature WBC 8.5 4.0 - 11.0 12/26/2016 [facility] 10e9/L 8:20 AM [facility] RBC Count 3.19 (L) 3.8 - 5.2 12/26/2016 [facility] 10e12/L 8:20 AM [facility] Hemoglobin 9.2 (L) 11.7 - 12/26/2016 [facility] 15.7 g/dL 8:20 AM [facility] Hematocrit 27.2 (L) 35.0 - 12/26/2016 [facility] 47.0 % 8:20 AM [facility] MCV 85 78 - 100 12/26/2016 [facility] fl 8:20 AM [facility] MCH 28.8 26.5 - 12/26/2016 [facility] 33.0 pg 8:20 AM [facility] MCHC 33.8 31.5 - 12/26/2016 [facility] 36.5 g/dL 8:20 AM [facility] RDW 14.7 10.0 - 12/26/2016 [facility] 15.0 % 8:20 AM [facility] Platelet Count 144 (L) 150 - 450 12/26/2016 [facility] 10e9/L 8:20 AM [facility] Specimen Anatomical Collection Method Collection Time Receive d Time (Source) Location / / Volume Laterality Blood specimen 12/26/2016 8:10 AM 017 8:12 (specimen) [employer]ER AM [employer]ER Kayla Davidson MD LAB - BLOOD ORDERABLES Performing Organization Address City/State/ZIP Code Phon e Number [facility] [address] [place], [place] [id number] [place] [address] (ABNORMAL) CBC with platelets (12/25/2016 2:04 PM [employer]ER) [facility] Method Time Signature WBC 9.7 4.0 - 11.0 12/25/2016 [facility] 10e9/L 2:10 PM [facility] RBC Count 3.45 (L) 3.8 - 5.2 12/25/2016 [facility] 10e12/L 2:10 PM [facility] Hemoglobin 10.1 (L) 11.7 - 12/25/2016 [facility] 15.7 g/dL 2:10 PM [facility] Hematocrit 28.8 (L) 35.0 - 12/25/2016 [facility] 47.0 % 2:10 PM [facility] MCV 84 78 - 100 12/25/2016 [facility] fl 2:10 PM [facility] MCH 29.3 26.5 - 12/25/2016 [facility] 33.0 pg 2:10 PM [facility] MCHC 35.1 31.5 - 12/25/2016 [facility] 36.5 g/dL 2:10 PM [facility] RDW 14.4 10.0 - 12/25/2016 [facility] 15.0 % 2:10 PM [facility] Platelet Count 142 (L) 150 - 450 12/25/2016 [facility] 10e9/L 2:10 PM [facility] Specimen Anatomical Collection Method Collection Time Receive d Time (Source) Location / / Volume Laterality Blood specimen 12/25/2016 2:04 PM 017 2:08 (specimen) [employer] PM [employer]ER So Nunez MD LAB - BLOOD ORDERABLES Performing Organization Address City/State/ZIP Code Phon e Number [address] (ABNORMAL) Magnesium (12/25/2016 7:00 AM [employer]ER) P athologist Signature Magnesium 1.5 (L) 1.6 - 2.3 12/25/2016 [facility] mg/dL 8:07 AM [facility] Specimen Anatomical Collection Method Collection Time Receive d Time (Source) Location / / Volume Laterality Blood specimen 12/25/2016 7:00 AM 017 7:06 (specimen) [employer]ER AM [employer]YER So Nunez MD LAB - BLOOD ORDERABLES Performing Organization Address City/State/ZIP Code Phon e Number [address] (ABNORMAL) Basic metabolic panel (12/25/2016 7:00 AM [employer]ER) Patholo gist Method Time Signature Sodium 139 133 - 144 12/25/2016 [facility] mmol/L 8:13 AM [facility] Potassium 3.8 3.4 - 5.3 12/25/2016 [facility] mmol/L 8:13 AM [facility] Chloride 108 94 - 109 12/25/2016 [facility] mmol/L 8:13 AM [facility] Carbon Dioxide 21 20 - 32 12/25/2016 [facility] mmol/L 8:13 AM [facility] Anion Gap 10 3 - 14 12/25/2016 [facility] mmol/L 8:13 AM [facility] Glucose 133 (H) 70 - 99 12/25/2016 [facility] mg/dL 8:13 AM [facility] Urea Nitrogen 5 (L) 7 - 30 12/25/2016 [facility] mg/dL 8:13 AM [facility] Creatinine 0.51 (L) 0.52 - 12/25/2016 [facility] 1.04 mg/dL 8:13 AM [facility] GFR Estimate >90 >60 12/25/2016 D[facility] OF mL/min/1.7 8:[address] Comment: Non GFR Calc GFR Estimate If >90 >60 mL/min/1.7m2 12/25/2016 8:13 A M [facility] Black [facility] Comment: GFR Calc Calcium 7.6 (L) 8.5 - 10.1 mg/dL 12/25/2016 8:13 AM [facility] Specimen Anatomical Collection Method Collection Time Receive d Time (Source) Location / / Volume Laterality Blood specimen 12/25/2016 7:00 AM 017 7:07 (specimen) [employer]ER AM [employer]ER Petrona Barone DO LAB - BLOOD ORDERABLES Performing Organization Address City/State/ZIP Code Phon e Number [facility] [address] [place] [address] [facility] [place] [place] Fibrinogen activity (12/25/2016 7:00 AM [employer]ER) P athologist Signature Fibrinogen 398 200 - 420 12/25/2016 [facility] mg/dL 7:58 AM [facility] Specimen Anatomical Collection Method Collection Time Receive d Time (Source) Location / / Volume Laterality Blood specimen 12/25/2016 7:00 AM 017 7:07 (specimen) [employer]ER AM [employer]ENSE LAWYER Petrona Barone DO LAB - BLOOD ORDERABLES Performing Organization Address City/State/ZIP Code Phon e Number [address] [address] [facility] [place] [place] Partial thromboplastin time (12/25/2016 7:00 AM [employer]ER) P athologist Signature PTT 28 22 - 37 sec 12/25/2016 [facility] 7:58 AM [facility] Specimen Anatomical Collection Method Collection Time Receive d Time (Source) Location / / Volume Laterality Blood specimen 12/25/2016 7:00 AM 017 7:07 (specimen) [employer]ENSE [employer]YER AM [employer]ENSE LAWYER Petrona Barone DO LAB - BLOOD ORDERABLES Performing Organization Address City/[facility]/ZIP Code Phon e Number [address] [address] [facility] [place] [place] INR (12/25/2016 7:00 AM [employer]ER) P athologist Signature INR 1.06 0.86 - 1.14 12/25/2016 [facility] 7:58 AM [facility] Specimen Anatomical Collection Method Collection Time Receive d Time (Source) Location / / Volume Laterality Blood specimen 12/25/2016 7:00 AM 017 7:07 (specimen) [employer]ER AM [employer]ENSE LAWYER Petrona Tigist Barone DO LAB - BLOOD ORDERABLES Performing Organization Address City/[facility]/ZIP Code Phon e Number [address] [address] [facility] [place] [place] (ABNORMAL) CBC with platelets (12/25/2016 7:00 AM [employer]YER) Patholo gist Method Time Signature WBC 12.7 (H) 4.0 - 11.0 12/25/2016 [facility] 10e9/L 7:51 AM [facility] RBC Count 4.05 3.8 - 5.2 12/25/2016 [facility] 10e12/L 7:51 AM [facility] Hemoglobin 11.5 (L) 11.7 - 12/25/2016 [facility] 15.7 g/dL 7:51 AM [facility] Hematocrit 33.8 (L) 35.0 - 12/25/2016 [facility] 47.0 % 7:51 AM [facility] MCV 84 78 - 100 12/25/2016 [facility] fl 7:51 AM [facility] MCH 28.4 26.5 - 12/25/2016 [facility] 33.0 pg 7:51 AM [facility] MCHC 34.0 31.5 - 12/25/2016 [facility] 36.5 g/dL 7:51 AM [facility] RDW 14.0 10.0 - 12/25/2016 [facility] 15.0 % 7:51 AM [facility] Platelet Count 160 150 - 450 12/25/2016 [facility] 10e9/L 7:51 AM [facility] Specimen Anatomical Collection Method Collection Time Receive d Time (Source) Location / / Volume Laterality Blood specimen 12/25/2016 7:00 AM 017 7:07 (specimen) [employer]ER AM CR[employer]ENSE LAWYER Petrona Barone DO LAB - BLOOD ORDERABLES Performing Organization Address City/[facility]/ZIP [facility] Phon e Number [address] Partial thromboplastin time (12/25/2016 12:54 AM [employer]YER) P athologist Signature PTT 28 22 - 37 sec 12/25/2016 [facility] 1:52 AM [facility] Specimen Anatomical Collection Method Collection Time Receive d Time (Source) Location / / Volume Laterality Blood specimen 12/25/2016 12:54 7 1:10 (specimen) AM [employer]YER AM [employer] DEFENSE LAWYER Nora Torres MD LAB - BLOOD ORDERABLES Performing Organization Address City/[facility]/ZIP Code Phon e Number [address] [address] [facility] [place] [place] INR (12/25/2016 12:54 AM [employer]ER) P athologist Signature INR 1.11 0.86 - 1.14 12/25/2016 [facility] 1:52 AM [facility] Specimen Anatomical Collection Method Collection Time Receive d Time (Source) Location / / Volume Laterality Blood specimen 12/25/2016 12:54 7 1:10 (specimen) AM [employer]YER AM [employer] DEFENSE LAWYER Nora Torres MD LAB - BLOOD ORDERABLES Performing Organization Address City/State/ZIP Code Phon e Number [address] [address] [facility] [place] [place] Fibrinogen activity (12/25/2016 12:54 AM [employer]YER) P athologist Signature Fibrinogen 338 200 - 420 12/25/2016 [facility] mg/dL 1:52 AM [facility] Specimen Anatomical Collection Method Collection Time Receive d Time (Source) Location / / Volume Laterality Blood specimen 12/25/2016 12:54 201 7 1:10 (specimen) AM [employer]ER AM [employer]ENSE LAWYER Nora Torres MD LAB - BLOOD ORDERABLES Performing Organization Address City/State/ZIP Code Phon e Number [address] [address] [facility] [place] [place] (ABNORMAL) CBC with platelets (12/25/2016 12:54 AM [employer]YER) Analysis Performed At Patho logist Time Signature WBC 11.0 4.0 - 11.0 12/25/2016 [facility] 10e9/L 1:42 AM [facility] RBC Count 4.22 3.8 - 5.2 12/25/2016 [facility] 10e12/L 1:42 AM [facility] Hemoglobin 12.2 11.7 - 12/25/2016 [facility] 15.7 g/dL 1:42 AM [facility] Hematocrit 35.9 35.0 - 12/25/2016 [facility] 47.0 % 1:42 AM [facility] MCV 85 78 - 100 12/25/2016 [facility] fl 1:42 AM [facility] MCH 28.9 26.5 - 12/25/2016 [facility] 33.0 pg 1:42 AM [facility] MCHC 34.0 31.5 - 12/25/2016 [facility] 36.5 g/dL 1:42 AM [facility] RDW 13.6 10.0 - 12/25/2016 [facility] 15.0 % 1:42 AM [facility] Platelet Count 149 (L) 150 - 450 12/25/2016 [facility] 10e9/L 1:42 AM [facility] Specimen Anatomical Collection Method Collection Time Receive d Time (Source) Location / / Volume Laterality Blood specimen 12/25/2016 12:54 7 1:10 (specimen) AM [employer]ER AM [employer]ENSE LAWYER Nora Torres MD LAB - BLOOD ORDERABLES Performing Organization Address City/State/ZIP Code Phon e Number [facility] [address] [place] [address] [facility] [place] [place] (ABNORMAL) Basic metabolic panel (12/25/2016 12:54 AM [employer]YER) Analysis Performed At Patho logist Time Signature Sodium 142 133 - 144 12/25/2016 [facility] mmol/L 1:49 AM [facility] Potassium 4.0 3.4 - 5.3 12/25/2016 [facility] mmol/L 1:49 AM [facility] Chloride 113 (H) 94 - 109 12/25/2016 [facility] mmol/L 1:49 AM [facility] Carbon Dioxide 22 20 - 32 12/25/2016 [facility] mmol/L 1:49 AM [facility] Anion Gap 7 3 - 14 12/25/2016 [facility] mmol/L 1:49 AM [facility] Glucose 147 (H) 70 - 99 12/25/2016 [facility] mg/dL 1:49 AM [facility] Urea Nitrogen 6 (L) 7 - 30 12/25/2016 [facility] mg/dL 1:49 AM [facility] Creatinine 0.54 0.52 - 12/25/2016 [facility] 1.04 mg/dL 1:49 AM [facility] GFR Estimate >90 >60 12/25/2016 [facility] mL/min/1.7 1:[address] Comment: Non GFR Calc GFR Estimate If >90 >60 mL/min/1.7m2 12/25/2016 1:49 A M [facility] Black [facility] Comment: GFR Calc Calcium 8.0 (L) 8.5 - 10.1 mg/dL 12/25/2016 1:49 AM [facility] Specimen Anatomical Collection Method Collection Time Receive d Time (Source) Location / / Volume Laterality Blood specimen 12/25/2016 12:54 7 1:10 (specimen) AM [employer]ER AM CR[employer] DEFENSE LAWYER Nora Torres MD LAB - BLOOD ORDERABLES Performing Organization Address City/State/ZIP Code Phon e Number [facility] [address] [place] [address] [facility] [place] [place] XR Abdomen Port 1 View (12/24/2016 11:10 PM [employer]YER) Anatomical Region Laterality Modality Abdomen/Pelvis Computed Radiography Specimen (Source) Anatomical Location Collection Method / Collectio n Time Received Time / Laterality Volume Impressions 12/24/2016 11:52 PM [employer]YER IMPRESSION: No radiopaque foreign objects are present in the visualized portion of the abdomen and pe lvis. CHEIKH COURTNEY MD Narrative 12/24/2016 11:52 PM [employer]ENSE [employer]YER ABDOMEN SINGLE VIEW ??12/24/2016 11:10 PM HISTORY: [...] ORDER JEFFERY Blood component (12/24/2016 10:59 PM CR[employer]ENSE LAWYER) Component Value Ref Test Analysis Performed At [facility] gist Range Method Time Signature Unit Number [id number] 12/24/2016 [facility] 11:06 PM [facility] Blood 5 cryoprecipitate 12/24/2016 [facility] Component units pooled 11:06 PM [place] [facility] Type [facility] Division 00 12/24/2016 [facility] Number 11:06 PM [facility] Status of Released to care 12/24/2016 [facility] F Unit unit 11:[address] [facility] Blood [id number] 12/24/2016 [facility] Product Code 11:06 PM [facility] Unit Status ISS [facility] Specimen Anatomical Collection Method Collection Time Receive d Time (Source) Location / / Volume Laterality 12/24/2016 10:59 12/24/2016 PM [employer]YER 11:04 PM [employer]ENSE [employer]YER Nora Leyva MD LABORATORY Performing Organization Address City/State/ZIP Code Phon e Number [facility] [address] [place] [address] [place] [place] [address] [facility] [place] [place] (ABNORMAL) Arterial Panel (12/24/2016 10:45 PM CR[employer]ENSE LAWYER) Patholo gist Method Time Signature pH Arterial 7.35 7.35 - 12/24/2016 [facility] 7.45 pH 10:57 PM [facility] pCO2 Arterial 36 35 - 45 mm 12/24/2016 [facility] Hg 10:57 PM [facility] pO2 Arterial 207 (H) 80 - 105 12/24/2016 [facility] mm Hg 10:57 PM [facility] Bicarbonate 20 (L) 21 - 28 12/24/2016 [facility] Arterial mmol/L 10:57 PM [facility] Base Deficit Art 4.9 mmol/L 12/24/2016 [facility] F 10:57 PM [facility] Comment: Reference range: -9.0 to 1.8 FIO2 50 12/24/2016 10:50 PM [facility] Sodium 135 133 - 144 12/24/2016 10:57 PM [facility] mmol/L [facility] Potassium 4.0 3.4 - 5.3 12/24/2016 10:57 PM [facility] mmol/L [facility] Hemoglobin 10.1 (L) 11.7 - 15.7 12/24/2016 10:57 PM [facility] [place] g/dL [facility] Glucose 161 (H) 70 - 99 mg/dL 12/24/2016 10:57 PM [facility] Calcium Ionized 5.1 4.4 - 5.2 12/24/2016 10:57 PM [facility] Whole Blood mg/dL [facility] Specimen Anatomical Collection Method Collection Time Receive d Time (Source) Location / / Volume Laterality 12/24/2016 10:45 12/24/2016 PM [employer]ER 10:49 PM CR[employer] DEFENSE LAWYER Nora Leyva MD LAB - BLOOD ORDERABLES Performing Organization Address City/State/ZIP Code Phon e Number [address] [address] [facility] [place] [place] Surgical pathology exam (12/24/2016 10:13 PM CR[employer] DEFENSE LAWYER) Component Value Ref Test Analysis Performed Pathologis t Range Method Time At Signature Copath Patient Name: DEANN KING Report MR#: [id number] Specimen #: [id number] Collected: 12/24/2016 Received: 12/25/2016 Reported: 12/31/2016 10:03 [...] Electronically signed out by: Moshe Isaac M.D., [facility] CLINICAL HISTORY: 36-year-old admitted at 27-1/7 [...] fundus to cervix, 8.0 cm anterior to drop worker ior, and 9.5 cm cornu to [...] endometrium is irregular-shaped. No masses are identified. Merchandise Adjustment Clerk sections are submitted. Summary of Sections: A1 [...] fallopian tube wi th a pin-point lumen. Merchandise Adjustment Clerk sections are submitted in ca ssette B1. [...] fallopian tube wi th a pin-point lumen. Merchandise Adjustment Clerk sections are submitted in ca ssette C1. [...] measuring 2.0 x 2.0 x 1.2 cm. Merchandise Adjustment Clerk sections are submitted as follows: Summary of [...] a remote retroplacental hematoma. CPT Codes: A: 29350-AZ9, 71958-JJT, 05392-TIF B: 49298-JC2 C: 94974-TO4 D: 84107-XS8 TESTING LAB LOCATION: [facility], [address] [place] [id number] COLLECTION SITE: Client: [facility] Location: [facility] ([facility]) Specimen (Source) Anatomical Collection Method Collection Time Re ceived Time Location / / Volume Laterality Tissue specimen UTERUS AND CERVIX, 12/24/2016 10:13 (specimen) CS / Unknown PM [employer]YER Tissue specimen STRUCTURE OF RIGHT 12/24/2016 10:14 (specimen) FALLOPIAN TUBE / PM CR[employer] DEFENSE LAWYER Unknown Tissue specimen STRUCTURE OF LEFT 12/24/2016 10:14 (specimen) FALLOPIAN TUBE / PM CR[employer] DEFENSE LAWYER Unknown So Nunez MD LAB - BEAKER AP Performing Organization Address City/[facility] Code Phon e Number [facility] Partial thromboplastin time (12/24/2016 9:50 PM CR[employer] DEFENSE LAWYER) athologist Signature PTT 33 22 - 37 sec 12/24/2016 [facility] 10:05 PM [facility] Specimen Anatomical Collection Method Collection Time Receive d Time (Source) Location / / Volume Laterality 12/24/2016 9:50 PM 7 9:52 CR[employer] DEFENSE LAWYER PM CRIM[employer] DEFENSE LAWYER Nora Leyva MD LAB - BLOOD ORDERABLES Performing Organization Address City/[facility]/ZIP Code Phon e Number [id number] [place] [address] (ABNORMAL) INR (12/24/2016 9:50 PM CRIM[employer]AL DEFENSE LAWYER) athologist Signature INR 1.50 (H) 0.86 - 1.14 12/24/2016 [facility] 10:05 PM [facility] Specimen Anatomical Collection Method Collection Time Receive d Time (Source) Location / / Volume Laterality 12/24/2016 9:50 PM 7 9:52 CRIMINAL DEFENSE LAWYER PM CRIMINAL DEFENSE LAWYER Nora Leyva MD LAB - BLOOD ORDERABLES Performing Organization Address City/[facility]/ZIP Code Phon e Number [place] [phone] [facility] [place] [place] (ABNORMAL) Fibrinogen activity (12/24/2016 9:50 PM CRIM[employer] DEFENSE LAWYER) P athologist Signature Fibrinogen 189 (L) 200 - 420 12/24/2016 [facility] mg/dL 10:05 PM [facility] Specimen Anatomical Collection Method Collection Time Receive d Time (Source) Location / / Volume Laterality 12/24/2016 9:50 PM 7 9:52 CR[employer] DEFENSE LAWYER PM CRIMINAL DEFENSE LAWYER Nora Leyva MD LAB - BLOOD ORDERABLES Performing Organization Address City/[facility]/ZIP Code Phon e Number [address] [address] [facility] [place] [place] (ABNORMAL) CBC with platelets (12/24/2016 9:50 PM CRIM[employer] DEFENSE LAWYER) Patholo gist Method Time Signature WBC 10.3 4.0 - 11.0 12/24/2016 [facility] 10e9/L 9:58 PM [facility] RBC Count 2.61 (L) 3.8 - 5.2 12/24/2016 [facility] 10e12/L 9:58 PM [facility] Hemoglobin 7.5 (L) 11.7 - 12/24/2016 [facility] 15.7 g/dL 9:58 PM [facility] Hematocrit 23.1 (L) 35.0 - 12/24/2016 [facility] 47.0 % 9:58 PM [facility] MCV 89 78 - 100 12/24/2016 [facility] fl 9:58 PM [facility] MCH 28.7 26.5 - 12/24/2016 [facility] 33.0 pg 9:58 PM [facility] MCHC 32.5 31.5 - 12/24/2016 [facility] 36.5 g/dL 9:58 PM [facility] RDW 14.5 10.0 - 12/24/2016 [facility] 15.0 % 9:58 PM [facility] Platelet Count 105 (L) 150 - 450 12/24/2016 [facility] 10e9/L 9:58 PM [facility] Specimen Anatomical Collection Method Collection Time Receive d Time (Source) Location / / Volume Laterality 12/24/2016 9:50 PM 7 9:52 CRIMINAL DEFENSE LAWYER PM CRIMINAL DEFENSE LAWYER Nora Leyva MD LAB - BLOOD ORDERABLES Performing Organization Address City/State/ZIP Code Phon e Number [facility] [address] [place] [address] [facility] [place] [place] (ABNORMAL) Arterial Panel (12/24/2016 9:50 PM [facility]) [facility] Method Time Signature pH Arterial 7.31 (L) 7.35 - 12/24/2016 [facility] 7.45 pH 9:58 PM [facility] pCO2 Arterial 38 35 - 45 12/24/2016 [facility] mm Hg 9:58 PM [facility] pO2 Arterial 197 (H) 80 - 105 12/24/2016 [facility] mm Hg 9:58 PM [facility] Bicarbonate 19 (L) 21 - 28 12/24/2016 [facility] Arterial mmol/L 9:58 PM [facility] Base Deficit Art 6.8 mmol/L 12/24/2016 [facility] O F 9:58 PM [facility] Comment: Reference range: -9.0 to 1.8 FIO2 50 12/24/2016 9:54 PM [facility] Sodium 137 133 - 144 12/24/2016 9:58 PM [facility] mmol/L [facility] Potassium 3.7 3.4 - 5.3 12/24/2016 9:58 PM [facility] mmol/L [facility] Hemoglobin 7.5 (L) 11.7 - 15.7 12/24/2016 9:58 PM [facility] [place] g/dL [facility] Glucose 155 (H) 70 - 99 mg/dL 12/24/2016 9:58 PM [facility] Calcium Ionized 4.6 4.4 - 5.2 12/24/2016 9:58 PM [facility] [place] Whole Blood mg/dL [facility] T BANK Specimen Anatomical Collection Method Collection Time Receive d Time (Source) Location / / Volume Laterality 12/24/2016 9:50 PM 7 9:52 [employer] PM [employer] Nora Leyva MD LAB - BLOOD ORDERABLES Performing Organization Address City/State/ZIP Code Phon e Number [facility] [address] [place] [address] [facility] [place] [place] (ABNORMAL) Arterial Panel (12/24/2016 9:20 PM [facility]) [facility] Method Time Signature pH Arterial 7.31 (L) 7.35 - 12/24/2016 [facility] 7.45 pH 9:28 PM [facility] pCO2 Arterial 40 35 - 45 12/24/2016 DING[facility] OF mm Hg 9:28 PM [facility] pO2 Arterial 191 (H) 80 - 105 12/24/2016 DING[facility] OF mm Hg 9:28 PM [facility] Bicarbonate 20 (L) 21 - 28 12/24/2016 [facility] Arterial mmol/L 9:28 PM [facility] Base Deficit Art 5.8 mmol/L 12/24/2016 [facility] F 9:28 PM [facility] Comment: Reference range: -9.0 to 1.8 FIO2 50% 12/24/2016 9:26 PM [facility] Sodium 136 133 - 144 12/24/2016 9:28 PM [facility] mmol/L [facility] Potassium 3.9 3.4 - 5.3 12/24/2016 9:28 PM [facility] mmol/L [facility] Hemoglobin 8.7 (L) 11.7 - 15.7 12/24/2016 9:28 PM [facility] [place] [facility] [place] g/dL [facility] Glucose 165 (H) 70 - 99 mg/dL 12/24/2016 9:28 PM [facility] Calcium Ionized 4.4 4.4 - 5.2 12/24/2016 9:28 PM [facility] [place] [place] Whole Blood mg/dL [facility] Specimen Anatomical Collection Method Collection Time Receive d Time (Source) Location / / Volume Laterality 12/24/2016 9:20 PM 7 9:25 [employer]ER PM [employer]YER Nora Leyva MD LAB - BLOOD ORDERABLES Performing Organization Address City/State/ZIP Code Phon e Number [place] [phone] [facility] [place] [place] Blood component (12/24/2016 8:45 PM CR[employer]YER) [facility] gist Method Time Signature Unit Number [id number] 12/24/2016 [facility] 7 10:07 PM [employer]ER [facility] BANK Blood PlateletPher 12/24/2016 [facility] Component esis,LeukoRe 10:07 PM [employer]YER [place] [facility] Type d [facility] (Part 2[facility] BANK Division 00 12/24/2016 [facility] Number 10:07 PM CR[employer]YER [facility] BANK Status of Released to 12/24/2016 [facility] Unit care unit 11:58 PM CR[employer]YER [facility] Blood Product [id number] 12/24/2016 [facility] Code 10:07 PM [employer]YER [facility] B[facility] Unit Status ISS [facility] Specimen Anatomical Collection Method Collection Time Receive d Time (Source) Location / / Volume Laterality 12/24/2016 8:45 PM 7 8:50 [employer]YER PM [employer]YER Nora Leyva MD LABORATORY Performing Organization Address City/State/ZIP Code Phon e Number [place] [phone] [facility] [place] [place] Blood component (12/24/2016 8:45 PM CRIMINAL DEFENSE LAWYER) [facility] Method Time Signature Unit Number [id number] 12/24/2016 [facility] 2 8:52 PM CR[employer]YER [facility] B[facility] Blood PlateletPher 12/24/2016 [facility] Component esis,LeukoRe 8:52 PM [employer]YER [place] [facility] Type [place] [facility] (Part 2) BANK Division 00 12/24/2016 [facility] Number 8:52 PM [employer]YER [facility] BANK Status of Released to 12/24/2016 [facility] Unit care unit 11:58 PM [employer]YER [facility] [place] Blood Product [id number] 12/24/2016 [facility] Code 8:52 PM CR[employer]YER [facility] B[facility] Unit Status ISS [facility] Specimen Anatomical Collection Method Collection Time Receive d Time (Source) Location / / Volume Laterality 12/24/2016 8:45 PM 7 8:50 [employer]YER PM [employer]YER Nora Leyva MD LABORATORY Performing Organization Address City/State/ZIP Code Phon e Number [facility] [address] [place] [address] [address] [facility] [place] [place] Platelets prepare order unit (12/24/2016 8:45 PM CR[employer]YER) Patholo gist Method Time Signature Blood PLT Pheresis 12/24/2016 [facility] 8:50 PM CRIM[employer] DEFENSE LAWYER [facility] Units Ordered 2 12/24/2016 [facility] 10:07 PM CR[employer]YER [facility] Specimen Anatomical Collection Method Collection Time Receive d Time (Source) Location / / Volume Laterality 12/24/2016 8:45 PM 7 8:50 [employer]YER PM [employer]YER Nora Leyva MD BLOOD BANK PRODUCT ORDERABLE S Performing Organization Address City/[facility]/ZIP Code Phon e Number [address] [address] [facility] [place] [place] Partial thromboplastin time (12/24/2016 8:44 PM [employer]YER) P athologist Signature PTT 30 22 - 37 sec 12/24/2016 [facility] 9:05 PM [facility] Specimen Anatomical Collection Method Collection Time Receive d Time (Source) Location / / Volume Laterality 12/24/2016 8:44 PM 7 8:51 [employer]YER PM [employer]YER Nora Leyva MD LAB - BLOOD ORDERABLES Performing Organization Address City/[facility]/ZIP Code Phon e Number [address] [address] [facility] [place] [place] (ABNORMAL) INR (12/24/2016 8:44 PM CR[employer]YER) P athologist Signature INR 1.16 (H) 0.86 - 1.14 12/24/2016 [facility] 9:05 PM CR[employer]ENSE [employer]YER [facility] Specimen Anatomical Collection Method Collection Time Receive d Time (Source) Location / / Volume Laterality 12/24/2016 8:44 PM 7 8:51 CR[employer]YER PM CR[employer]ENSE [employer]YER Nora Leyva MD LAB - BLOOD ORDERABLES Performing Organization Address City/State/ZIP Code Phon e Number [facility] [address] [place] [address] [facility] [place] [place] Fibrinogen activity (12/24/2016 8:44 PM CR[employer]YER) P athologist Signature Fibrinogen 328 200 - 420 12/24/2016 [facility] mg/dL 9:05 PM [facility] Specimen Anatomical Collection Method Collection Time Receive d Time (Source) Location / / Volume Laterality 12/24/2016 8:44 PM 201 7 8:51 CR[employer]YER PM [employer]YER Nora Leyva MD LAB - BLOOD ORDERABLES Performing Organization Address City/State/ZIP Code Phon e Number [place] [phone] [place] [address] [facility] [place] [place] (ABNORMAL) CBC with platelets (12/24/2016 8:44 PM CR[employer]YER) Patholo gist Method Time Signature WBC 5.8 4.0 - 11.0 12/24/2016 [facility] 10e9/L 9:16 PM [facility] RBC Count 2.70 (L) 3.8 - 5.2 12/24/2016 [facility] 10e12/L 9:16 PM [facility] Hemoglobin 7.7 (L) 11.7 - 12/24/2016 [facility] 15.7 g/dL 9:16 PM [facility] Hematocrit 24.0 (L) 35.0 - 12/24/2016 [facility] 47.0 % 9:16 PM [facility] MCV 89 78 - 100 12/24/2016 [facility] fl 9:16 PM [facility] MCH 28.5 26.5 - 12/24/2016 [facility] 33.0 pg 9:16 PM [facility] MCHC 32.1 31.5 - 12/24/2016 [facility] 36.5 g/dL 9:16 PM [facility] RDW 16.4 (H) 10.0 - 12/24/2016 [facility] 15.0 % 9:16 PM [facility] Platelet Count 156 150 - 450 12/24/2016 [facility] 10e9/L 9:16 PM [facility] Specimen Anatomical Collection Method Collection Time Receive d Time (Source) Location / / Volume Laterality 12/24/2016 8:44 PM 7 8:51 CR[employer]YER PM CR[employer]ENSE [employer]YER Nora Leyva MD LAB - BLOOD ORDERABLES Performing Organization Address City/State/ZIP Code Phon e Number [facility] [address] [place] [address] [facility] [place] [place] (ABNORMAL) Arterial Panel (12/24/2016 8:44 PM CRIM[employer]ENSE LAWYER) [facility] Method Time Signature pH Arterial 7.29 (L) 7.35 - 12/24/2016 [facility] 7.45 pH 8:56 PM [facility] pCO2 Arterial 41 35 - 45 12/24/2016 [facility] mm Hg 8:56 PM [facility] pO2 Arterial 355 (H) 80 - 105 12/24/2016 [facility] OF mm Hg 8:56 PM [facility] Bicarbonate 20 (L) 21 - 28 12/24/2016 [facility] Arterial mmol/L 8:56 PM [facility] Base Deficit Art 6.1 mmol/L 12/24/2016 [facility] F 8:56 PM [facility] Comment: Reference range: -9.0 to 1.8 FIO2 100% 12/24/2016 8:53 PM [facility] Sodium 137 133 - 144 12/24/2016 8:56 PM [facility] mmol/L [facility] Potassium 3.6 3.4 - 5.3 12/24/2016 8:56 PM [facility] mmol/L [facility] Hemoglobin 7.6 (L) 11.7 - 15.7 12/24/2016 8:56 PM [facility] [place] [place] g/dL [facility] Glucose 160 (H) 70 - 99 mg/dL 12/24/2016 8:56 PM [facility] Calcium Ionized 4.1 (L) 4.4 - 5.2 12/24/2016 8:56 PM [facility] [place] Whole Blood mg/dL [facility] T BANK Specimen Anatomical Collection Method Collection Time Receive d Time (Source) Location / / Volume Laterality 12/24/2016 8:44 PM 7 8:51 CR[employer]YER PM CR[employer]ENSE [employer]YER Nora Leyva MD LAB - BLOOD ORDERABLES Performing Organization Address City/State/ZIP Code Phon e Number [facility] [address] [place] [address] [facility] [place] [place] (ABNORMAL) Arterial Panel (12/24/2016 8:25 PM CRIMINAL DEFENSE LAWYER) [facility] Method Time Signature pH Arterial 7.30 (L) 7.35 - 12/24/2016 [facility] 7.45 pH 8:33 PM [facility] pCO2 Arterial 40 35 - 45 12/24/2016 [facility] OF mm Hg 8:33 PM [facility] pO2 Arterial 195 (H) 80 - 105 12/24/2016 [facility] mm Hg 8:33 PM [facility] Bicarbonate 19 (L) 21 - 28 12/24/2016 [facility] Arterial mmol/L 8:33 PM [facility] Base Deficit Art 6.6 mmol/L 12/24/2016 [facility] F 8:33 PM [facility] Comment: Reference range: -9.0 to 1.8 FIO2 100% 12/24/2016 8:29 PM [facility] Sodium 135 133 - 144 12/24/2016 8:33 PM [facility] mmol/L [facility] Potassium 4.1 3.4 - 5.3 12/24/2016 8:33 PM [facility] mmol/L [facility] Hemoglobin 8.0 (L) 11.7 - 15.7 12/24/2016 8:33 PM [facility] [place] [facility] [place] g/dL [facility] Glucose 136 (H) 70 - 99 mg/dL 12/24/2016 8:33 PM [facility] Calcium Ionized 4.3 (L) 4.4 - 5.2 12/24/2016 8:33 PM [facility] Whole Blood mg/dL [facility] T BANK Specimen Anatomical Collection Method Collection Time Receive d Time (Source) Location / / Volume Laterality 12/24/2016 8:25 PM 7 8:29 CR[employer]ENSE [employer]YER PM CR[employer]ENSE LAWYER Nora Leyva MD LAB - BLOOD ORDERABLES Performing Organization Address City/[facility]/ZIP Code Phon e Number [facility] [address] [place] [address] [facility] [place] [place] Blood component (12/24/2016 7:25 PM CRIMINAL DEFENSE LAWYER) [facility] [employer] Method Time Signature Unit Number [id number] 12/24/2016 [facility] 10:10 PM CRIMIN[employer] DEFENSE LAWYER [facility] BANK Blood Plasma, 12/24/2016 [facility] Component Thawed 10:10 PM CRIMINAL DEFENSE LAWYER [facility]ST BANK Division 00 12/24/2016 [facility] Number 10:10 PM CR[employer]ENSE LAWYER [facility] BANK Status of No longer 12/24/2016 [facility] Unit available 11:49 PM CR[employer]ENSE LAWYER [facility] 12/24/2016 [facility] 2349 BANK Blood Product [id number] 12/24/2016 [facility] Code 10:10 PM CR[employer]ENSE [employer]YER [facility] B[facility] Unit Status [facility] BANK Specimen Anatomical Collection Method Collection Time Receive d Time (Source) Location / / Volume Laterality 12/24/2016 7:25 PM 7 7:30 CR[employer]ENSE [employer]YER PM CR[employer]ENSE [employer]YER Nora Leyva MD LAB - BLOOD BANK PRODUCT ORD ER Performing Organization Address [facility] Phon e Number [address] [address] [facility] [place] [place] Blood component (12/24/2016 7:25 PM CRIMINAL DEFENSE LAWYER) [facility] [employer] Method Time Signature Unit Number [id number] 12/24/2016 [facility] 10:10 PM CRIMIN[employer] DEFENSE LAWYER [facility] BANK Blood Plasma, 12/24/2016 [facility] Component Thawed 10:10 PM [facility] BANK Division 00 12/24/2016 [facility] Number 10:10 PM [facility] BANK Status of No longer 12/24/2016 [facility] Unit available 11:48 PM CR[employer]ENSE [employer]YER [facility] 12/24/2016 [facility] 2348 BANK Blood Product [id number] 12/24/2016 [facility] Code 10:10 PM CR[employer]ENSE LAWYER [facility] BANK Unit Status [facility] Specimen Anatomical Collection Method Collection Time Receive d Time (Source) Location / / Volume Laterality 12/24/2016 7:25 PM 7 7:30 CR[employer]ENSE [employer]YER PM CR[employer] DEFENSE LAWYER Nora Leyva MD LAB - BLOOD BANK PRODUCT ORD ER Performing Organization Address City/[facility] Phon e Number [address] [address] [facility] [place] [place] Blood component (12/24/2016 7:25 PM CRIMINAL DEFENSE LAWYER) [employer] Method Time Signature Unit Number [id number] 12/24/2016 [facility] 9 9:03 PM CRIM[employer]ENSE LAWYER [facility] BANK Blood Plasma, 12/24/2016 [facility] Component Thawed 9:03 PM CRIMINAL DEFENSE LAWYER [facility] BANK Division 00 12/24/2016 [facility] Number 9:03 PM CR[employer] LAWYER [facility] BANK Status of Released to 12/24/2016 [facility] Unit care unit 11:58 PM CR[employer] DEFENSE LAWYER [facility] Blood Product [id number] 12/24/2016 [facility] Code 9:03 PM CRIM[employer] DEFENSE LAWYER [facility] BANK Unit Status [facility] Specimen Anatomical Collection Method Collection Time Receive d Time (Source) Location / / Volume Laterality 12/24/2016 7:25 PM 7 7:30 CR[employer]ENSE [employer]YER PM CR[employer]ENSE LAWYER Nora Leyva MD LABORATORY Performing Organization Address City/[facility] Code Phon e Number [place] [phone] [facility] [place] [place] Blood component (12/24/2016 7:25 PM CRIMINAL DEFENSE LAWYER) [facility] [employer] Method Time Signature Unit Number [id number] 12/24/2016 [facility] 7 9:03 PM CRIMIN[employer] DEFENSE LAWYER [facility] BANK Blood Plasma, 12/24/2016 [facility] Component Thawed 9:03 PM CRIMINAL DEFENSE LAWYER [facility] BANK Division 00 12/24/2016 [facility] Number 9:03 PM CRIM[employer]ENSE LAWYER [facility] BANK Status of Released to 12/24/2016 [facility] Unit care unit 11:58 PM CRIM[employer] DEFENSE LAWYER [facility] Blood Product [id number] 12/24/2016 [facility] Code 9:03 PM CRIMIN[employer]ENSE LAWYER [facility] BANK Unit Status [facility] Specimen Anatomical Collection Method Collection Time Receive d Time (Source) Location / / Volume Laterality 12/24/2016 7:25 PM 7 7:30 CRIMIN[employer] DEFENSE LAWYER PM CRIMIN[employer] DEFENSE LAWYER Nora Leyva MD LABORATORY Performing Organization Address City/[facility] Code Phon e Number [facility] [address] Blood component (12/24/2016 7:25 PM CRIMINAL DEFENSE LAWYER) [facility] [employer] Method Time Signature Unit Number [id number] 12/24/2016 [facility] 8:18 PM CRIMINAL DEFENSE LAWYER [facility] BANK Blood Apheresis 12/24/2016 [facility] Component Plasma Thawed 8:18 PM CRIMINAL DEFENSE LAWYER [facility] BANK Division 00 12/24/2016 [facility] Number 8:18 PM CRIM[employer]ENSE LAWYER [facility] BANK Status of Released to 12/24/2016 [facility] Unit care unit 11:58 PM CR[employer]ENSE LAWYER [facility] [place] Blood Product [id number] 12/24/2016 [facility] Code 8:18 PM CRIMINAL DEFENSE LAWYER [facility] BANK Unit Status [facility] Specimen Anatomical Collection Method Collection Time Receive d Time (Source) Location / / Volume Laterality 12/24/2016 7:25 PM 7 7:30 CRIMINAL DEFENSE LAWYER PM CRIMINAL DEFENSE LAWYER Nora Leyva MD LABORATORY Performing Organization Address [facility] Code Phon e Number [facility] [address] [place] [phone] [facility] [place] [place] Blood component (12/24/2016 7:25 PM CRIMINAL DEFENSE LAWYER) [facility] [employer] Method Time Signature Unit Number [id number] 12/24/2016 [facility] 5 8:18 PM CRIMINAL DEFENSE LAWYER [facility] BANK Blood Plasma, 12/24/2016 [facility] Component Thawed 8:18 PM CRIMINAL DEFENSE LAWYER [facility] BANK Division 00 12/24/2016 [facility] Number 8:18 PM CRIMINAL DEFENSE LAWYER [facility] BANK Status of Released to 12/24/2016 [facility] Unit care unit 11:58 PM CRIMINAL DEFENSE LAWYER [facility] Blood Product [id number] 12/24/2016 [facility] Code 8:18 PM CRIMINAL DEFENSE LAWYER [facility] BANK Unit Status [facility] Specimen Anatomical Collection Method Collection Time Receive d Time (Source) Location / / Volume Laterality 12/24/2016 7:25 PM 7 7:30 CRIMINAL DEFENSE LAWYER PM CRIMINAL DEFENSE LAWYER Nora Leyva MD LABORATORY Performing Organization Address City/[facility] Phon e Number [facility] [address] [place] [phone] WEST BANK Blood component (12/24/2016 7:25 PM CRIMINAL DEFENSE LAWYER) [employer] Method Time Signature Unit Number [id number] 12/24/2016 [facility] 3 8:18 PM CRIMINAL DEFENSE LAWYER [facility] BANK Blood Plasma, 12/24/2016 [facility] OF Component Thawed 8:18 PM CRIMINAL DEFENSE LAWYER [facility] BANK Division 00 12/24/2016 [facility] Number 8:18 PM CRIMINAL DEFENSE LAWYER [facility] BANK Status of Released to 12/24/2016 [facility] OF Unit care unit 11:58 PM CRIMINAL DEFENSE LAWYER [facility] Blood Product [id number] 12/24/2016 [facility] Code 8:18 PM CRIMINAL DEFENSE LAWYER [facility] BANK Unit Status [facility] Specimen Anatomical Collection Method Collection Time Receive d Time (Source) Location / / Volume Laterality 12/24/2016 7:25 PM 7 7:30 CRIMIN[employer] DEFENSE LAWYER PM CRIMINAL DEFENSE LAWYER Nora Leyva MD LABORATORY Performing Organization Address City/[facility] Code Phon e Number [address] Blood component (12/24/2016 7:25 PM CRIMINAL DEFENSE LAWYER) [facility] [employer] Method Time Signature Unit Number [id number] 12/24/2016 [facility] 9 8:18 PM CRIMINAL DEFENSE LAWYER [facility] BANK Blood Plasma, 12/24/2016 [facility] Component Thawed 8:18 PM CRIMINAL DEFENSE LAWYER [facility] WEST BANK Division 00 12/24/2016 [facility] Number 8:18 PM CRIMINAL DEFENSE LAWYER [facility] BANK Status of Released to 12/24/2016 [facility] Unit care unit 11:58 PM CRIMINAL DEFENSE LAWYER [facility] Blood Product [id number] 12/24/2016 [facility] Code 8:18 PM CRIMINAL DEFENSE LAWYER [facility] BANK Unit Status [facility] Specimen Anatomical Collection Method Collection Time Receive d Time (Source) Location / / Volume Laterality 12/24/2016 7:25 PM 7 7:30 CRIMINAL DEFENSE LAWYER PM CRIMIN[employer] DEFENSE LAWYER Nora Leyva MD LABORATORY Performing Organization Address City/[facility]/ZIP Code Phon e Number [facility] [address] Plasma prepare order unit (12/24/2016 7:25 PM CRIMINAL DEFENSE LAWYER) P athologist Signature Blood Plasma 12/24/2016 [facility] OF Component Type 7:31 PM [facility] Units Ordered 8 12/24/2016 [facility] 10:10 PM [facility] Specimen Anatomical Collection Method Collection Time Receive d Time (Source) Location / / Volume Laterality 12/24/2016 7:25 PM 7 7:30 CR[employer]IN[employer]ENSE LAWYER PM CRIMIN[employer] DEFENSE LAWYER Nora Leyva MD BLOOD BANK PRODUCT ORDERABLE S Performing Organization Address City/State/ZIP Code Phon e Number [facility] [address] [place] [address] [facility] [place] [place] (ABNORMAL) CBC with platelets differential (12/24/2016 7:06 PM CRIMINAL DEFENSE LAWYER) Patholo gist Method Time Signature WBC 10.4 4.0 - 12/24/2016 [facility] 11.0 7:11 PM [facility] 10e9/L [facility] RBC Count 2.99 (L) 3.8 - 5.2 12/24/2016 [facility] 10e12/L 7:11 PM [facility] Hemoglobin 9.0 (L) 11.7 - 12/24/2016 [facility] 15.7 g/dL 7:11 PM [facility] Hematocrit 28.5 (L) 35.0 - 12/24/2016 [facility] 47.0 % 7:11 PM [facility] MCV 95 78 - 100 12/24/2016 [facility] fl 7:11 PM [facility] MCH 30.1 26.5 - 12/24/2016 [facility] 33.0 pg 7:11 PM [facility] MCHC 31.6 31.5 - 12/24/2016 [facility] 36.5 g/dL 7:11 PM [facility] RDW 16.1 (H) 10.0 - 12/24/2016 [facility] 15.0 % 7:11 PM [facility] Platelet Count 256 150 - 450 12/24/2016 [facility] 10e9/L 7:11 PM [facility] Diff Method Automated 12/24/2016 [facility] Method 7:11 PM [facility] % Neutrophils 69.4 % 12/24/2016 [facility] 7:11 PM [facility] % Lymphocytes 21.5 % 12/24/2016 [facility] 7:11 PM [facility] % Monocytes 5.7 % 12/24/2016 [facility] 7:11 PM [facility] % Eosinophils 2.9 % 12/24/2016 [facility] 7:11 PM [facility] % Basophils 0.1 % 12/24/2016 [facility] 7:11 PM [facility] % Immature 0.4 % 12/24/2016 [facility] Granulocytes 7:11 PM [facility] Nucleated RBCs 0 0 /100 12/24/2016 [facility] 7:11 PM [facility] Absolute 7.2 1.6 - 8.3 12/24/2016 [facility] Neutrophil 10e9/L 7:11 PM [facility] Absolute 2.2 0.8 - 5.3 12/24/2016 [facility] Lymphocytes 10e9/L 7:11 PM [facility] Absolute 0.6 0.0 - 1.3 12/24/2016 [facility] Monocytes 10e9/L 7:11 PM [facility] Absolute 0.3 0.0 - 0.7 12/24/2016 [facility] Eosinophils 10e9/L 7:11 PM [facility] Absolute 0.0 0.0 - 0.2 12/24/2016 [facility] Basophils 10e9/L 7:11 PM [facility] Abs Immature 0.0 0 - 0.4 12/24/2016 [facility] Granulocytes 10e9/L 7:11 PM [facility] Absolute 0.0 12/24/2016 [facility] Nucleated RBC 7:11 PM [facility] Specimen Anatomical Collection Method Collection Time Receive d Time (Source) Location / / Volume Laterality Blood specimen 12/24/2016 7:06 PM 017 7:07 (specimen) [employer]YER PM [employer]YER Kayla Davidson MD LAB - BLOOD ORDERABLES Performing Organization Address City/State/ZIP Code Phon e Number [facility] [address] [place] [address] [facility] [place] [place] Urine Culture Aerobic Bacterial (12/24/2016 7:50 AM [employer]YER) Component Value Ref Test Analysis Performed At [facility] Range Method Time Signature Specimen Midstream Urine INFECTIOUS Description DISEASE DIAGNOSTIC LABORATORY Special Specimen received 12/24/2016 [facility]ITY [facility] in preservative 11:03 AM [facility] Culture Micro <10,000 colonies/mL 12/25/2016 INFEC TIOUS mixed urogenital evelina 7:35 AM [employer]YER DISEA SE Susceptibility testing not routinely done DIAGNOSTIC LABORATORY Specimen (Source) Anatomical Collection Method Collection Time Re ceived Time Location / / Volume Laterality Examination of 12/24/2016 7:50 12/24/2016 8:46 midstream urine AM [employer]YER AM [employer]YER specimen (procedure) Nora Leyva MD LAB - MICRO GENERAL ORDERABL ES Performing Organization Address City/State/ZIP Code Phon e Number INFECTIOUS DISEASES [address] [place] [address] DIAGNOSTIC LABORATORY, [facility] INFECTIOUS DISEASE [address] [place] [address], [facility] DIAGNOSTIC LABORATORY [address] [address], [facility] (ABNORMAL) UA with Microscopic reflex to Culture (12/24/2016 7:50 AM CR[employer]ENSE LAWYER) [facility] [employer] Method Time Signature Color Urine Yellow 12/24/2016 [facility]ITY OF 8:35 AM [facility] Appearance Urine Clear 12/24/2016 UNIVERSITY O F 8:35 AM [facility] Glucose Urine Negative NEG^Negat 12/24/2016 [facility]ITY OF paula mg/dL 8:35 AM [facility] Bilirubin Urine Negative NEG^Negat 12/24/2016 [facility] OF paula 8:35 AM [facility] Ketones Urine Negative NEG^Negat 12/24/2016 [facility] OF [place]ula mg/dL 8:35 AM [facility] Specific [place] 1.013 1.003 - 12/24/2016 UNIVERSITY O F Urine 1.035 8:35 AM [facility] Blood Urine Moderate (A) NEG^Negat 12/24/2016 [facility] OF paula 8:35 AM [facility] pH Urine 6.5 5.0 - 7.0 12/24/2016 [facility]ITY OF pH 8:35 AM [facility] Protein Albumin Negative NEG^Negat 12/24/2016 [facility]ITY OF Urine paula mg/dL 8:35 AM [facility] Urobilinogen Normal 0.0 - 2.0 12/24/2016 DINGLE OF mg/dL mg/dL 8:35 AM [facility] Nitrite Urine Negative NEG^Negat 12/24/2016 [facility] OF paula 8:35 AM [facility] Leukocyte Large (A) NEG^Negat 12/24/2016 [facility] OF Esterase Urine paula 8:35 AM [facility] Source Midstream 12/24/2016 [facility] OF Urine 8:06 AM [facility] WBC Urine 24 (H) 0 - 2 12/24/2016 [facility] OF /HPF 8:37 AM [facility] RBC Urine 34 (H) 0 - 2 12/24/2016 [facility] OF /HPF 8:37 AM [facility] Bacteria Urine Few (A) NEG^Negat 12/24/2016 [facility]ITY OF paula /HPF 8:37 AM [facility] Squamous 2 (H) 0 - 1 12/24/2016 [facility] OF Epithelial /HPF /HPF 8:37 AM [facility] Transitional Epi <1 0 - 1 12/24/2016 DINGLE O F /HPF 8:37 AM [facility] Specimen (Source) Anatomical Collection Method Collection Time Re ceived Time Location / / Volume Laterality Examination of URINE SPECIMEN 12/24/2016 7:50 12/25/19 17 8:05 midstream urine OBTAINED BY CLEAN AM CR[employer]ENSE [employer]YER AM [facility] specimen CATCH PROCEDURE / (procedure) Unknown Petrona Barone DO LAB - URINE ORDERABLES Performing Organization Address City/State/ZIP Code Phon e Number [facility] [address] [place] [address] [facility] [place] [place] (ABNORMAL) Wet prep (12/23/2016 11:53 PM [employer]ER) Component Value Ref Test Analysis Performed At [facility] gist Range Method Time Signature Specimen Vagina [facility] OF Description [facility] Wet Prep No motile 12/24/2016 [facility] OF Trichomonas 12:21 AM [facility] Wet Prep Rare 12/24/2016 [facility] OF Yeast seen 12:21 AM [facility] (A) [facility] Wet Prep Moderate 12/24/2016 [facility]ITY OF PMNs seen 12:21 AM [facility] Wet Prep No clue cells 12/24/2016 [facility]ITY OF seen 12:21 AM [facility] Specimen Anatomical Collection Method Collection Time Receive d Time (Source) Location / / Volume Laterality Specimen from 12/23/2016 11:53 12/24/2016 vagina PM [employer]ER 12:10 AM CR[employer]ENSE [employer]YER (specimen) Petrona Barone DO LAB - MICRO GENERAL ORDERABL ES Performing Organization Address City/State/ZIP Code Phon e Number [facility] [address] [place] [address] [facility] [place] [place] Maternal BPP Single (12/23/2016 8:37 AM CR[employer]ENSE [employer]YER) Anatomical Region Laterality Modality Ultrasound Specimen (Source) Anatomical Collection Method Collection Time Re ceived Time Location / / Volume Laterality 12/23/2016 8:05 AM [employer]ER Impressions 12/23/2016 11:10 AM [employer]YER IMPRESSION 1) Intrauterine at 29 3/7 week s gestational age. 2) The BPP is reassuring. 3) The amniotic fluid volume low consist ent with known PPROM. 4) There is a complete posterior/lateral placenta previa. Narrative 12/23/2016 11:10 AM [employer]YER BPP Pat. Name: DEANN KING Study Date: 8:05am Pat. NO: [id number] Referring ??: CHRIST LOZADA Site: [facility] Appeals Board Referee: Jay Lu : 1980 Age: 36 INDICATION Premature Rupture of Membranes ( PPROM) Complete previa. [facility] ANTEPARTUM inpatient exam, Transabd ominal ultrasound [...] Pat. Name:Elizabeth KING Date:12/23 8:05am Pat. NO: [id number] MD:CHRIST BHAT ON [facility]Yesenia [facility] RDMS :1980Age:36 INDICATION Premature Rupture of Membranes ( PPROM) Complete previa. [facility] ANTEPARTUM inpatient exam, Transabd ominal ultrasound [...] complete posterior/lateral placenta previa. [facility]ashawn [facility]el [facility] ORDER[facility]LES Blood component (12/23/2016 6:54 AM CRIMINAL [employer]ENSE LAWYER) Patholo gist Method Time Signature Unit Number [id number] 12/24/2016 UN[facility]ITY OF 9:49 PM CR[employer]YER [facility] Blood Red Blood 12/24/2016 [facility]ITY OF Component Cells 9:49 PM [employer]ENSE [employer]YER [facility] Leukocyte [facility] Reduced BANK Division 00 12/24/2016 UN[facility] OF Number 9:49 PM [employer]YER [facility] Status of Released to 12/24/2016 [facility]ITY OF Unit care unit 11:58 PM CR[employer]ENSE [employer]YER [facility] Blood Product [id number] 12/24/2016 UN[facility]ITY OF Code 9:49 PM CR[employer]YER [facility] Unit Status ISS [facility] Specimen Anatomical Collection Method Collection Time Receive d Time (Source) Location / / Volume Laterality 12/23/2016 6:54 AM 7 6:55 CRIM[employer]ENSE [employer]YER AM CRIM[employer] DEFENSE LAWYER Nora CardMunch LABORATORY Performing Organization Address City/State/ZIP Code Phon e Number [facility] [address] [place] [address] [address] [facility] [place] [place] Blood component (12/23/2016 6:54 AM CRIMINAL DEFENSE LAWYER) [facility] [employer] Method Time Signature Unit Number [id number] 12/24/2016 [facility]ITY OF 9:49 PM CR[employer]YER [facility] Blood Red Blood 12/24/2016 UN[facility]ITY OF Component Cells 9:49 PM CRIMINAL DEFENSE LAWYER [facility] WEST Reduced BANK Division 00 12/24/2016 UN[facility]ITY OF Number 9:49 PM CR[employer]YER [facility] B[facility] Status of No longer 12/24/2016 [facility]ITY OF Unit available 11:50 PM [facility] 12/24/2016 [facility] BANK Blood Product [id number] 12/24/2016 UN[facility]ERSITY OF Code 9:49 PM CR[employer]ENSE [employer]YER [facility] Unit Status RET [facility] Specimen Anatomical Collection Method Collection Time Receive d Time (Source) Location / / Volume Laterality 12/23/2016 6:54 AM 7 6:55 CRIMINAL [employer]ENSE LAWYER AM CRIM[employer]AL DEFENSE LAWYER Nora CardMunch LABORATORY Performing Organization Address City/[facility]/ZIP [facility] Phon e Number [address] [address] [facility] [place] [place] Blood component (12/23/2016 6:54 AM CRIMINAL DEFENSE LAWYER) [facility] gist Method Time Signature Unit Number [id number] 12/24/2016 UN[facility]ERSITY OF 9:49 PM CR[employer]YER [facility] Blood Red Blood 12/24/2016 [facility]ITY OF Component Cells 9:49 PM CR[employer]ENSE [employer]YER [facility] Leukocyte [facility] Reduced BANK Division 00 12/24/2016 [facility] OF Number 9:49 PM CR[employer]YER [facility] Status of Released to 12/24/2016 [facility] OF Unit care unit 11:58 PM [employer]YER [facility] [place] Blood Product [id number] 12/24/2016 UN[facility]ITY OF Code 9:49 PM [employer]YER [facility] Unit Status ISS [facility] Specimen Anatomical Collection Method Collection Time Receive d Time (Source) Location / / Volume Laterality 12/23/2016 6:54 AM 7 6:55 CR[employer]ENSE [employer]YER AM CRIMINAL DEFENSE LAWYER [employer] ([employer]) LAB - BLOOD BANK PRODUCT ORD ER Performing Organization Address City/[facility] Phon e Number [facility] [address] [place] [address] [address] [place] Blood component (12/23/2016 6:54 AM CRIMIN[employer]ENSE [employer]YER) [employer] Method Time Signature Unit Number [id number] 12/24/2016 [facility] OF 9:49 PM [facility] Blood Red Blood 12/24/2016 UN[facility]ITY OF Component Cells 9:49 PM CR[employer]YER [facility] WEST Reduced BANK Division 00 12/24/2016 [facility] OF Number 9:49 PM CR[employer]YER [facility] Status of Released to 12/24/2016 [facility] OF Unit care unit 11:58 PM [employer]YER [facility] [place] Blood Product [id number] 12/24/2016 UN[facility]ITY OF Code 9:49 PM CR[employer]YER [facility] Unit Status ISS [facility] Specimen Anatomical Collection Method Collection Time Receive d Time (Source) Location / / Volume Laterality 12/23/2016 6:54 AM 7 6:55 CR[employer]IN[employer]ENSE [employer]YER AM CRIMINAL DEFENSE LAWYER [employer] LAB - BLOOD BANK PRODUCT ORD ER Performing Organization Address City/[facility] Phon e Number [facility] [address] [place] [address] [address] [place] Blood component (12/23/2016 6:54 AM CRIMINAL DEFENSE LAWYER) [facility] [employer] Method Time Signature Unit Number [id number] 12/24/2016 UN[facility]ERSITY OF 8:38 PM CRIM[employer]ENSE [employer]YER [facility] Blood Red Blood 12/24/2016 UN[facility]ITY OF Component Cells 8:38 PM CRIMIN[employer]ENSE [employer]YER [facility] Leukocyte [facility] Reduced BANK Division 00 12/24/2016 UN[facility]ITY OF Number 8:38 PM CR[employer]YER [facility] Status of Released to 12/24/2016 UN[facility] OF Unit care unit 11:58 PM CR[employer]YER [facility] [place] Blood Product [id number] 12/24/2016 UN[facility]ERSITY OF Code 8:38 PM CRIM[employer]ENSE [employer]YER [facility] Unit Status ISS [facility] Specimen Anatomical Collection Method Collection Time Receive d Time (Source) Location / / Volume Laterality 12/23/2016 6:54 AM 7 6:55 CRIMIN[employer]ENSE [employer]YER AM CRIM[employer]AL DEFENSE [employer]YER [employer] LAB - BLOOD BANK PRODUCT ORD ER Performing Organization Address City/[facility] Code Phon e Number [facility] [address] [place], [place] [id number] [place] [id number] [place] [address] Blood component (12/23/2016 6:54 AM CRIMINAL DEFENSE LAWYER) [facility] [employer] Method Time Signature Unit Number [id number] 12/24/2016 UN[facility]ERSITY OF 8:38 PM [facility] Blood Red Blood 12/24/2016 UNIVERSITY OF Component Cells 8:38 PM CR[employer]ENSE [employer]YER [facility] WEST Reduced BANK Division 00 12/24/2016 UN[facility]ERSITY OF Number 8:38 PM [facility] Status of Released to 12/24/2016 [facility]ITY OF Unit care unit 11:58 PM [facility] Blood Product [id number] 12/24/2016 UN[facility]ERSITY OF Code 8:38 PM [facility] Unit Status ISS [facility] Specimen Anatomical Collection Method Collection Time Receive d Time (Source) Location / / Volume Laterality 12/23/2016 6:54 AM 7 6:55 CRIM[employer]ENSE [employer]YER AM CRIM[employer]AL DEFENSE LAWYER [employer] LAB - BLOOD BANK PRODUCT ORD ER Performing Organization Address City/[facility]/ZIP Code Phon e Number [facility] [address] [place] [address] [address] [place] Blood component (12/23/2016 6:54 AM CRIMINAL DEFENSE LAWYER) [facility] [employer] Method Time Signature Unit Number [id number] 12/24/2016 UNIVERSITY OF 8:38 PM CRIM[employer]ENSE [employer]YER [facility] Blood Red Blood 12/24/2016 UN[facility]ERSITY OF Component Cells 8:38 PM CRIM[employer]ENSE [employer]YER [facility] WEST Reduced BANK Division 00 12/24/2016 UN[facility]ERSITY OF Number 8:38 PM CR[employer]YER [facility] Status of Released to 12/24/2016 UNIVERSITY OF Unit care unit 11:58 PM CRIM[employer]ENSE [employer]YER [facility] Blood Product [id number] 12/24/2016 UNIVERSITY OF Code 8:38 PM CRIM[employer]ENSE [employer]YER [facility] Unit Status ISS [facility] Specimen Anatomical Collection Method Collection Time Receive d Time (Source) Location / / Volume Laterality 12/23/2016 6:54 AM 7 6:55 CR[employer]IN[employer]ENSE [employer]YER AM CRIM[employer]AL DEFENSE LAWYER [employer] LABORATORY Performing Organization Address City/[facility]/ZIP Code Phon e Number [address] [address] [place] [facility] Blood component (12/23/2016 6:54 AM CRIMINAL DEFENSE LAWYER) [facility] [employer] Method Time Signature Unit Number [id number] 12/24/2016 UN[facility]ERSITY OF 8:38 PM CRIMIN[employer]ENSE [employer]YER [facility] Blood Red Blood 12/24/2016 UNIVERSITY OF Component Cells 8:38 PM CRIMINAL DEFENSE LAWYER [facility]ST Reduced BANK Division 00 12/24/2016 UN[facility]ERSITY OF Number 8:38 PM CRIM[employer]ENSE [employer]YER [facility] Status of Released to 12/24/2016 UN[facility]ERSITY OF Unit care unit 11:58 PM CRIMIN[employer]ENSE [employer]YER [facility] Blood Product [id number] 12/24/2016 UNIVERSITY OF Code 8:38 PM CRIM[employer]ENSE [employer]YER [facility] Unit Status ISS [facility] Specimen Anatomical Collection Method Collection Time Receive d Time (Source) Location / / Volume Laterality 12/23/2016 6:54 AM 7 6:55 CRIMINAL DEFENSE LAWYER AM CRIMINAL DEFENSE LAWYER [employer] LABORATORY Performing Organization Address City/State/ZIP Code Phon e Number [address] [address] [place] Blood component (12/23/2016 6:54 AM CRIMINAL DEFENSE LAWYER) [facility] Method Time Signature Unit Number [id number] 12/24/2016 UN[facility]ERSITY OF 7:32 PM CRIMIN[employer]ENSE [employer]YER [facility] Blood Red Blood 12/24/2016 UN[facility]ERSITY OF Component Cells 7:32 PM CRIMINAL DEFENSE LAWYER [facility]ST Reduced BANK Division 00 12/24/2016 UN[facility]ERSITY OF Number 7:32 PM CRIM[employer]ENSE [employer]YER [facility] Status of Released to 12/24/2016 UN[facility]ERSITY OF Unit care unit 11:58 PM CRIMINAL DEFENSE LAWYER [facility] Blood Product [id number] 12/24/2016 UN[facility]ERSITY OF Code 7:32 PM CRIMINAL DEFENSE LAWYER [facility] Unit Status ISS [facility] Specimen Anatomical Collection Method Collection Time Receive d Time (Source) Location / / Volume Laterality 12/23/2016 6:54 AM 7 6:55 CRIMINAL DEFENSE LAWYER AM CRIMINAL DEFENSE LAWYER [employer] LABORATORY Performing Organization Address City/State/ZIP Code Phon e Number [facility] [address] [place] [address] [address] [facility] [place] [place] Blood component (12/23/2016 6:54 AM CRIMINAL DEFENSE LAWYER) [facility] Method Time Signature Unit Number [id number] 12/24/2016 UN[facility]ERSITY OF 7:32 PM CRIMINAL DEFENSE LAWYER [facility] Blood Red Blood 12/24/2016 UN[facility]ERSITY OF Component Cells 7:32 PM CRIMINAL DEFENSE LAWYER [facility]ST Reduced BANK Division 00 12/24/2016 UN[facility]ERSITY OF Number 7:32 PM CRIMIN[employer]ENSE LAWYER [facility] Status of Released to 12/24/2016 UN[facility]ERSITY OF Unit care unit 11:58 PM CRIM[employer]AL [employer]ENSE LAWYER [facility] Blood Product [id number] 12/24/2016 UNIVERSITY OF Code 7:32 PM CRIMINAL DEFENSE LAWYER [facility] Unit Status ISS [facility] Specimen Anatomical Collection Method Collection Time Receive d Time (Source) Location / / Volume Laterality 12/23/2016 6:54 AM 7 6:55 CRIMINAL DEFENSE LAWYER AM CRIMINAL DEFENSE LAWYER [employer] Performing Organization Address City/State/ZIP Code Phon e Number [facility] [address] [place] [address] [address] [place] Blood component (12/23/2016 6:54 AM CRIMINAL DEFENSE LAWYER) [facility] [employer] Method Time Signature Unit Number [id number] 12/24/2016 UN[facility]ERSITY OF 7:05 PM CRIMINAL DEFENSE [employer]YER [facility] Blood Red Blood 12/24/2016 UN[facility]ERSITY OF Component Cells 7:05 PM CRIMINAL DEFENSE LAWYER [facility]ST Reduced BANK Division 00 12/24/2016 UN[facility]ERSITY OF Number 7:05 PM CRIMINAL DEFENSE LAWYER [facility] Status of Released to 12/24/2016 UN[facility]ERSITY OF Unit care unit 11:58 PM CRIMINAL DEFENSE LAWYER [facility] Blood Product [id number] 12/24/2016 UNIVERSITY OF Code 7:05 PM CRIMINAL DEFENSE LAWYER [facility] Unit Status ISS [facility] Specimen Anatomical Collection Method Collection Time Receive d Time (Source) Location / / Volume Laterality 12/23/2016 6:54 AM 7 6:55 CRIMINAL DEFENSE LAWYER AM CRIMINAL DEFENSE LAWYER [employer] LABORATORY Performing Organization Address City/State/ZIP Code Phon e Number [facility] [address] [place] [address] [address] [place] Blood component (12/23/2016 6:54 AM CRIMINAL DEFENSE LAWYER) [facility] Method Time Signature Unit Number [id number] 12/24/2016 UN[facility]ERSITY OF 7:05 PM CRIMINAL DEFENSE LAWYER [facility] Blood Red Blood 12/24/2016 UN[facility]ERSITY OF Component Cells 7:05 PM CRIMINAL DEFENSE LAWYER [facility]ST Reduced BANK Division 00 12/24/2016 UN[facility]ERSITY OF Number 7:05 PM CRIMINAL DEFENSE LAWYER [facility] Status of Released to 12/24/2016 UN[facility]ERSITY OF Unit care unit 11:58 PM CRIMINAL DEFENSE LAWYER [facility] Blood Product [id number] 12/24/2016 UN[facility]ERSITY OF Code 7:05 PM CRIMINAL DEFENSE LAWYER [facility] Unit Status ISS [facility] Specimen Anatomical Collection Method Collection Time Receive d Time (Source) Location / / Volume Laterality 12/23/2016 6:54 AM 7 6:55 CRIMINAL DEFENSE LAWYER AM CRIMINAL DEFENSE LAWYER [employer] LABORATORY Performing Organization Address City/State/ZIP Code Phon e Number [facility] [address] [place] [address] [address] [facility] [place] [place] ABO/Rh type and screen (12/23/2016 6:54 AM CRIMINAL DEFENSE LAWYER) [facility] gist Method Time Signature Units Ordered 12 12/24/2016 UNIVERSITY OF 9:49 PM CRIMINAL DEFENSE LAWYER [facility] BANK ABO B 12/23/2016 UNIVERSITY OF 7:32 AM CRIMINAL DEFENSE LAWYER [facility] BANK RH(D) Pos [facility] BANK Antibody Neg 12/23/2016 UNIVERSITY OF Screen 7:32 AM CRIMINAL DEFENSE LAWYER [facility] Test Valid [facility] of 12/23/2016 UN[facility]ERSITY OF Only At [place] 7:01 AM CRIMINAL DEFENSE LAWYER [facility] BANK w Hospital Specimen 12/26/2016 12/23/2016 UNIVERSITY OF Expires 7:01 AM CRIM[employer]AL DEFENSE LAWYER [facility] Crossmatch Red Blood 12/24/2016 UNIVERSITY OF Cells 7:05 PM CR[employer]ENSE [employer]YER [facility] Specimen Anatomical Collection Method Collection Time Receive d Time (Source) Location / / Volume Laterality Blood specimen 12/23/2016 6:54 AM 017 6:55 (specimen) CR[employer]ENSE LAWYER AM CRIMINAL DEFENSE LAWYER Norashelly Munguia Cade LAB - BLOOD BANK TEST ORDER Performing Organization Address City/[facility]/ZIP Code Phon e Number [address] [address] [facility] [place] [place] ABO/Rh type and screen (12/20/2016 10:48 AM CDT) [facility] gist Method Time Signature ABO B 12/20/2016 UNIVERSITY OF 11:31 AM CDT [facility] BANK RH(D) Pos [facility] Antibody Neg 12/20/2016 UNIVERSITY OF Screen 11:31 AM CDT [facility] Test Valid [facility] 12/20/2016 UN[facility] OF Only At [place] 11:[address] [facility],[place] claude BANK w Hospital Specimen 12/23/2016 12/20/2016 UNIVERSITY OF Expires 11:00 AM CDT [facility] Specimen Anatomical Collection Method Collection Time Receive d Time (Source) Location / / Volume Laterality Blood specimen 12/20/2016 10:48 11/03/201 7 (specimen) AM CDT 10:49 AM CDT Lashawn Patel MD LAB - BLOOD BANK TEST ORDER Performing Organization Address City/State/ZIP Code Phon e Number [facility] [address] [place] [address] [facility] [place] [place] Maternal BPP Single (12/19/2016 8:46 AM CDT) Anatomical Region Laterality Modality Ultrasound Specimen (Source) Anatomical Collection Method Collection Time Re ceived Time Location / / Volume Laterality 12/19/2016 8:16 AM CDT Impressions 12/25/2016 9:13 AM CR[employer]AL [employer]ENSE LAWYER IMPRESSION 1) Intrauterine at 28 6/7 week s gestational age. 2) The BPP is reassuring. 3) Oligohydramnios is seen consistent wi th know PPROM. 4) A complete posterior placenta previa is again seen. Narrative 12/25/2016 9:13 AM [employer] B[employer] Pat. Name: DEANN KING Study Date: 8:16am Pat. NO: [id number] Referring ??: CHRIST LOZADA Site: [facility] Appeals Board Referee: Jay Lu : 1980 Age: 36 INDICATION Premature Rupture of Membranes ( PPROM) Complete previa. [facility] ANTEPARTUM inpatient exam, Transabd ominal ultrasound [...] Pat. Name:FRANSISCO KINGReymundo Date:12/19 8:16am Pat. NO: [id number] MD:CHRIST BHAT ON [facility]Yesenia [facility] RDMS :1980Age:36 INDICATION Premature Rupture of Membranes ( PPROM) Complete previa. [facility] ANTEPARTUM inpatient exam, Transabd ominal ultrasound [...] rasound with the patient. Continue surveillance with [facility] weekly BPP. Continue inpatient management of [...] previa is again seen. Erum Manzanares MD [facility] US ORDERABLES ABO/Rh type and screen (12/17/2016 6:54 AM CDT) [facility] Method Time Signature ABO B 12/17/2016 [facility] 7:49 AM CDT [facility] RH(D) Pos [facility] Antibody Neg 12/17/2016 [facility] OF Screen 7:49 AM CDT [facility] Test Valid University 12/17/2016 [facility] [facility] [place] 7:[address] [facility] BANK w Hospital Specimen 12/20/2016 12/17/2016 [facility]ITY OF Expires 7:18 AM CDT [facility] Specimen Anatomical Collection Method Collection Time Receive d Time (Source) Location / / Volume Laterality Blood specimen 12/17/2016 6:54 AM 017 6:56 (specimen) CDT AM CDT Nora Munguia Cade LAB - BLOOD BANK TEST ORDER Performing Organization Address City/State/ZIP Code Phon e Number [facility] [address] [place] [address] [facility] [place] [place] Maternal US OB Limited Single/Multiple (12/16/2016 9:24 [...] DEANN KING Study Date: 8:43am Pat. NO: [id number] Referring ??MD: CHRIST LOZADA Site: [facility] Appeals Board Referee: Jay Lu : 1980 Age: 36 INDICATION Premature Rupture of Membranes ( PPROM) Complete previa. [facility] ANTEPARTUM inpatient exam, Transabd ominal ultrasound [...] Pat. Name:Elizabeth KING Date:12/16 8:43am Pat. NO: [id number] MD:CHRIST BHAT ON [facility]:Yesenia [facility] RDMS :1980Age:36 INDICATION Premature Rupture of Membranes ( PPROM) Complete previa. [facility] ANTEPARTUM inpatient exam, Transabd ominal ultrasound [...] rasound with the patient. Continue surveillance with [facility] weekly BPP. Continue inpatient management until delivery. [...] known PPROM. Erum Manzanares MD [facility] ORDERABLES ABO/Rh type and screen (12/14/2016 12:28 AM CDT) [facility] gist Method Time Signature ABO B 12/14/2016 [facility] 4:01 AM CDT [facility] RH(D) Pos [facility] Antibody Neg 12/14/2016 [facility] OF Screen 4:01 AM CDT [facility] Test Valid University 12/14/2016 [facility] [place] 1:[address] [facility] BANK w Hospital Specimen 12/17/2016 12/14/2016 [facility] OF Expires 1:05 AM CDT [facility] Specimen Anatomical Collection Method Collection Time Receive d Time (Source) Location / / Volume Laterality Blood specimen 12/14/2016 12:28 7 (specimen) AM CDT 12:29 AM CDT Nalini Eli MD LAB - BLOOD BANK TEST ORDER Performing Organization Address City/[facility] Code Phon e Number [facility] [address] [place] [id number] [place] [address] Hepatitis B Surface Antibody (12/13/2016 9:42 PM CDT) athologist Signature Hepatitis B 0.21 <8.00 12/16/2016 [facility] OF Surface m[IU]/mL 11:39 AM CDT [facility] Comment: Nonreactive, No antibody detect ed when the value is less than 8.00 m[IU]/mL. Specimen Anatomical Collection Method Collection Time Receive d Time (Source) Location / / Volume Laterality Blood specimen 12/13/2016 9:42 PM 017 9:43 (specimen) CDT PM CDT Erum Manzanares MD LAB - BLOOD ORDERABLES Performing Organization Address City/[facility]/ZIP Code Phon e Number [facility] [address] [place] [address] [facility] Hepatitis A Antibody IgG (12/13/2016 9:42 PM CDT) [facility] Method Time Signature Hepatitis A Nonreactive NR^Nonrea 12/16/2016 [facility] Antibody IgG ctive 11:39 AM CDT [facility] Comment: This assay cannot be used for t he diagnosis of acute HAV infection. Specimen Anatomical Collection Method Collection Time Receive d Time (Source) Location / / Volume Laterality Blood specimen 12/13/2016 9:42 PM 017 9:43 (specimen) CDT PM CDT Erum Manzanares MD LAB - BLOOD ORDERABLES Performing Organization Address City/[facility]/ZIP Code Phon e Number [facility] [address] Hepatitis B core antibody (12/13/2016 9:42 PM CDT) [facility] Method Time Signature Hepatitis B Nonreactive NR^Nonrea 12/16/2016 [facility] Maricruz ctive 11:39 AM CDT [facility] Specimen Anatomical Collection Method Collection Time Receive d Time (Source) Location / / Volume Laterality Blood specimen 12/13/2016 9:42 PM 017 9:43 (specimen) CDT PM CDT Erum Manzanares MD LAB - BLOOD ORDERABLES Performing Organization Address City/[facility]/ZIP Code Phon e Number [facility] [address] MR (12/13/2016 2:33 PM CDT) Anatomical [...] ZARINA THOMAS MD Nora Vince Mohamud [facility] MRI ORDERABLES Maternal US [...] DEANN KING Study Date: 7:48am Pat. NO: [id number] Referring ??MD: CHRIST LOZADA Site: [facility] Appeals Board Referee: Jay Lu : 1980 Age: 36 INDICATION Premature Rupture of Membranes ( PPROM), Complete Previa. [facility] ANTEPARTUM inpatient exam, Transabd ominal and [...] The patient was escorted back to her [facility] pital room at the end of the ultrasound. Please see [facility] for further documentation regarding plan of care. If you have questions regarding today's evaluation or if we can be of further service, please contact the [facility]. anomalies may be present but not detected. Procedure Note Nora Mohamud MD - 12/12/2016For matting of this note might be different from the original. Cx TV Pat. Name:Clovis KINGjames Date:12/12 7:48am Pat. NO: [id number] MD:CHRIST BHAT ON [facility]:Yesenia [facility] RDMS :1980Age:36 INDICATION Premature Rupture of Membranes ( PPROM), Complete Previa. [facility] ANTEPARTUM inpatient exam, Transabd ominal and [...] patient was escorted back to her [facility] room at the end of the ultrasound. Please see [facility] for further documentation regarding plan [...] the placental-myometrial interface appears normal. Nora Mohamud [facility] US ORDERABLES ABO/Rh type and screen (12/11/2016 9:05 AM CDT) [facility] Method Time Signature ABO B 12/11/2016 UN[facility]ERSITY 10:14 AM CDT [facility] RH(D) Pos [facility] Antibody Neg 12/11/2016 [facility] OF Screen 10:14 AM CDT [facility] Test Valid [facility] 12/11/2016 [facility] [facility] [place] 9:[address] [facility] BANK w Hospital Specimen 12/14/2016 12/11/2016 [facility] OF Expires 9:21 AM CDT [facility] Specimen Anatomical Collection Method Collection Time Receive d Time (Source) Location / / Volume Laterality Blood specimen 12/11/2016 9:05 AM 017 9:06 (specimen) CDT AM CDT Nalini Eli MD LAB - BLOOD BANK TEST ORDER Performing Organization Address City/State/ZIP Code Phon e Number [facility] [address] [place] [address] [facility] [place] [place] Echocardiogram Complete (12/10/2016 9:05 AM CDT) Anatomical Region Laterality Modality Echocardiography Specimen (Source) Anatomical Collection Method Collection Time Re ceived Time Location / / Volume Laterality 12/10/2016 8:00 AM CDT Narrative 12/10/2016 9:23 AM CDT [id number]^CADE^NORA^VINCE ?Study ID: [id number] ?[facility] ?[facility] ?[address] ?[place] [address] ? Echocardiogram __ Name: DEANN KING Study [...] 03/07/2017. Gestational age: 27w4d. Deli very at: [place]. Specific Indication: echocar diogram performed for family [...] the left atriu m. There is laminar zlafr-oj-pdzr shunting across the foramen ovale. Atrioventricular valves: [...] Procedure Note Brice Lloyd MD - [id number]^CADE^NORA^VINCE Study ID: [id number] [facility] [place] [address] Echocardiogram __ Name: DEANN KING Study Date: 12/10/2016 08:00 AM Patient Location: [facility] Gender: Female Patient Class: Inpatient : 1980 Age: 36 yrs Ordering Provider: NORA MOHAMUD Performed By: Krys Servin RDCS Reading Physician: Brice Lloyd MD Reason For Study: Other, Please Specify in Comments Data: Number of fetuses: This is a espinoza gestation. Due date: 03/07/2017. Gestational age: 27w4d. Deli very at: [place]. Specific Indication: echocar diogram performed for family [...] the left atriu m. There is laminar sfgth-mu-qztn shunting across the foramen ovale. Atrioventricular valves: [...] DEANN KING Study Date: 9:10am Pat. NO: [id number] Referring ??: CHRIST LOZADA Site: [facility] Appeals Board Referee: Jay Lu : 1980 Age: 36 INDICATION Premature Rupture of Membranes ( PPROM) Complete previa. METHOD Transabdominal ultrasound examination, [facility] ANTEPARTUM inpatient exam. View: Suboptimal view: [...] 2 lb 1 ?oz Calculated by ?Had[employer] ([id number]) Head / Face / Neck Biometry: Customer Assistance Representative ?3.9 ?mm ? Amniotic Fluid / FHR: [...] Pat. Name:FERNANDO FRANSISCOReymundo Date:12/08 9:10am Pat. NO: [id number] MD:CHRIST BHAT ON [facility]Yesenia Sen RDMS DOB:1980Age:36 INDICATION Premature Rupture of Membranes ( PPROM) Complete previa. METHOD Transabdominal ultrasound examination, [facility] ANTEPARTUM inpatient exam. View: Suboptimal view: limited [...] 2 lb 1 oz Calculated by Flora ([id number]) Head / Face / Neck Biometry: Customer Assistance Representative 3.9 mm Amniotic Fluid / FHR: AF [...] MARCELLA consistent with PPROM. Rossana Barker MD [facility] US ORDERABLES Wound Culture Aerobic Bacterial (12/07/2016 6:00 PM CDT) [facility] Method Time Signature Specimen Leg Wound [...] ORDERABL ES Performing Organization Address City/[facility] Code Phon e Number INFECTIOUS DISEASES [address] [place] [address] DIAGNOSTIC LABORATORY, [facility] INFECTIOUS DISEASE [address] [place] [address], [facility] DIAGNOSTIC LABORATORY Methicillin resistant staph aureus cult (12/07/2016 6:00 PM CDT) [facility] Method Time Signature Specimen Wound [facility] Special Specimen 12/07/2016 [facility] OF Requests collected in 7:06 PM CDT [facility] (white cap) Culture Micro Canceled, 12/07/2016 [facility] OF Test credited 8:13 PM CDT [facility] Culture Micro Test 12/07/2016 UN[facility]ERSITY OF reordered as 8:13 PM CDT [facility] BANK Specimen Anatomical Collection Method Collection Time Receive d Time (Source) Location / / Volume Laterality Specimen from 12/07/2016 6:00 PM 12/08/19 17 6:21 wound (specimen) CDT PM CDT Rossana Barker MD LAB - MICRO GENERAL ORDERABL ES Performing Organization Address City/State/ZIP Code Phon e Number [address] [address] [place] TSH with free T4 reflex (12/07/2016 3:43 PM CDT) P athologist Signature TSH 3.09 0.40 - 4.00 12/09/2016 [facility] mU/L 5:39 PM CDT [facility] Specimen Anatomical Collection Method Collection Time Receive d Time (Source) Location / / Volume Laterality 12/07/2016 3:43 PM 7 3:44 CDT PM CDT Nora Leyva MD LAB - BLOOD ORDERABLES Performing Organization Address City/State/ZIP Code Phon e Number [facility] [address] [place] [address] [facility] [place] [place] Rubella Antibody IgG Quantitative (12/07/2016 3:43 PM CDT) Analysis Performed At Path logist Time Signature Rubella Antibody 7 IU/mL 12/09/2016 UN[facility]ITY O F IgG Quantitative 11:02 AM CDT [facility] Comment: Negative Reference Range: ??Unvaccinated Negative 0-7 IU/mL Vaccinated or previous exposure Positive 10 IU/ml or greater Specimen Anatomical Collection Method Collection Time Receive d Time (Source) Location / / Volume Laterality 12/07/2016 3:43 PM 7 3:44 CDT PM CDT Nora Leyva MD LAB - BLOOD ORDERABLES Performing Organization Address City/State/ZIP Code Phon e Number [facility] [address] [place], [place] [id number] [place] [address] (ABNORMAL) Hepatitis C RNA quantitative (12/07/2016 3:43 PM CDT) [facility] Method Time Signature HCV RNA Quant [id number] HCVND^HCV 12/09/2016 [facility] IU/ml (A) RNA Not 12:19 PM CDT [facility] [IU]/mL [...] (H) <1.2 Log IU/mL 12/09/2016 12:19 PM [facility] Qt [facility] Specimen Anatomical Collection Method Collection Time Receive d Time (Source) Location / / Volume Laterality Blood specimen 12/07/2016 3:43 PM 017 3:44 (specimen) CDT PM CDT Nora Leyva MD LAB - BLOOD ORDERABLES Performing Organization Address City/[facility]/ZIP Code Phon e Number [facility] [address] [place] [address] [place] hemoglobin stain Kleihauer (12/07/2016 3:43 PM CDT) Patholo gist Method Time Signature Kleihauer-Bet No cells seen 12/07/2016 UNIVE RSITY OF ke Rhogam not required 7:22 PM CDT [facility] Patient Rh positive [facility] Test performed at [place] BANK Specimen Anatomical Collection Method Collection Time Receive d Time (Source) Location / / Volume Laterality Blood specimen 12/07/2016 3:43 PM 017 3:45 (specimen) CDT PM CDT Nora Leyva MD LAB - BLOOD BANK TEST ORDER Performing Organization Address City/[facility]/ZIP Code Phon e Number [address] [address] [facility] [place] [place] Fibrinogen activity (12/07/2016 3:43 PM CDT) P athologist Signature Fibrinogen 362 200 - 420 12/07/2016 UN[facility]ERSITY OF mg/dL 5:44 PM CDT [facility] Specimen Anatomical Collection Method Collection Time Receive d Time (Source) Location / / Volume Laterality Blood specimen 12/07/2016 3:43 PM 017 3:44 (specimen) CDT PM CDT Nora Leyva MD LAB - BLOOD ORDERABLES Performing Organization Address City/State/ZIP Code Phon e Number [address] [address] [facility] [place] [place] Partial thromboplastin time (12/07/2016 3:43 PM CDT) P athologist Signature PTT 27 22 - 37 sec 12/07/2016 [facility] 5:44 PM CDT [facility] Specimen Anatomical Collection Method Collection Time Receive d Time (Source) Location / / Volume Laterality Blood specimen 12/07/2016 3:43 PM 017 3:44 (specimen) CDT PM CDT Nora Leyva MD LAB - BLOOD ORDERABLES Performing Organization Address [facility]/ZIP [facility] Phon e Number [address] [address] [facility] [place] [place] INR (12/07/2016 3:43 PM CDT) P athologist Signature INR 1.06 0.86 - 1.14 12/07/2016 [facility] 5:44 PM T [facility] Specimen Anatomical Collection Method Collection Time Receive d Time (Source) Location / / Volume Laterality Blood specimen 12/07/2016 3:43 PM 017 3:44 (specimen) CDT PM CDT Nora Leyva MD LAB - BLOOD ORDERABLES Performing Organization Address City/[facility] Code Phon e Number [address] [address] [facility] [place] [place] (ABNORMAL) Comprehensive metabolic panel (12/07/2016 3:43 PM CDT) P athologist Signature Sodium 141 133 - 144 12/07/2016 [facility]ITY OF mmol/L 4:08 PM CDT [facility] Potassium 3.4 3.4 - 5.3 12/07/2016 [facility] OF mmol/L 4:08 PM CDT [facility] Chloride 108 94 - 109 12/07/2016 [facility] OF mmol/L 4:08 PM CDT [facility] Carbon Dioxide 21 20 - 32 12/07/2016 [facility] OF mmol/L 4:08 PM CDT [facility] Anion Gap 12 3 - 14 12/07/2016 [facility] OF mmol/L 4:08 PM CDT [facility] Glucose 88 70 - 99 12/07/2016 [facility] OF mg/dL 4:08 PM CDT [facility] Urea Nitrogen 6 (L) 7 - 30 12/07/2016 [facility] OF mg/dL 4:08 PM CDT [facility] Creatinine 0.55 0.52 - 12/07/2016 [facility]ITY OF 1.04 mg/dL 4:08 PM [facility] GFR Estimate >90 >60 12/07/2016 [facility] mL/min/1.7 4:[address] Comment: Non GFR Calc GFR Estimate If >90 >60 mL/min/1.7m2 12/07/2016 4:08 P M [facility] Black [facility] Comment: GFR Calc Calcium 8.1 (L) 8.5 - 10.1 12/07/2016 4:08 PM [facility] mg/dL [facility] Bilirubin Total 0.4 0.2 - 1.3 12/07/2016 4:08 PM UNIVE RSITY [facility] mg/dL [facility] Albumin 2.5 (L) 3.4 - 5.0 g/dL 12/07/2016 4:08 PM UNIVER SITY OF [facility] Protein Total 6.1 (L) 6.8 - 8.8 g/dL 12/07/2016 4:08 PM [facility] Alkaline Phosphatase 69 40 - 150 U/L 12/07/2016 4:08 PM [facility] ALT 26 0 - 50 U/L 12/07/2016 4:08 PM [facility] AST 21 0 - 45 U/L 12/07/2016 4:08 PM [facility] Specimen Anatomical Collection Method Collection Time Receive d Time (Source) Location / / Volume Laterality Blood specimen 12/07/2016 3:43 PM 017 3:44 (specimen) CDT PM CDT Nora Leyva MD LAB - BLOOD ORDERABLES Performing Organization Address City/State/ZIP Code Phon e Number [facility] [address] [place] [address] [facility] [place] [place] Urine Culture Aerobic Bacterial (12/07/2016 2:55 PM CDT) Component Value Ref Test Analysis Performed At [facility] Range Method Time Signature Specimen Unspecified Urine INFECTIOUS Description DISEASE DIAGNOSTIC LABORATORY Special Specimen received 12/07/2016 [facility] in preservative 7:19 PM [facility] Culture Micro >100,000 colonies/mL 12/08/2016 INFE CTIOUS [...] Code Phon e Number INFECTIOUS DISEASES [address] [place] [address] DIAGNOSTIC LABORATORY, [facility] INFECTIOUS DISEASE [address] [place] [address], [facility] DIAGNOSTIC LABORATORY [address] [address] (ABNORMAL) UA reflex to Microscopic and Culture (12/07/2016 2:55 PM CDT) [facility] Method Time Signature Color Urine Yellow 12/07/2016 [facility] 3:37 PM CDT [facility] Appearance Urine Clear 12/07/2016 DINGLE O F 3:37 PM CDT [facility] Glucose Urine Negative NEG^Negat 12/07/2016 UN[facility]ERSITY OF [place] mg/dL 3:37 PM CDT [facility] Bilirubin Urine Negative NEG^Negat 12/07/2016 [facility]ITY OF [place]ula 3:37 PM CDT [facility] Ketones Urine Negative NEG^Negat 12/07/2016 [facility]ITY OF [place] mg/dL 3:37 PM CDT [facility] Specific [place] 1.015 1.003 - 12/07/2016 UNIVERSITY O F Urine 1.035 3:37 PM CDT [facility] Blood Urine Negative NEG^Negat 12/07/2016 [facility]ITY OF [place]ula 3:37 PM CDT [facility] pH Urine 6.5 5.0 - 7.0 12/07/2016 UN[facility]ITY OF pH 3:37 PM CDT [facility] Protein Albumin 10 (A) NEG^Negat 12/07/2016 [facility]ITY OF Urine paula mg/dL 3:37 PM CDT [facility] Urobilinogen Normal 0.0 - 2.0 12/07/2016 [facility]ITY OF mg/dL mg/dL 3:37 PM CDT [facility] Nitrite Urine Negative NEG^Negat 12/07/2016 [facility]ITY OF [place] 3:37 PM CDT [facility] Leukocyte Moderate (A) NEG^Negat 12/07/2016 [facility]ITY OF Esterase Urine paula 3:37 PM CDT [facility] Source Midstream 12/07/2016 UN[facility]ITY OF Urine 3:23 PM T [facility] RBC Urine 1 0 - 2 12/07/2016 U OF M /HPF 3:49 PM T [facility] WBC Urine 7 (H) 0 - 2 12/07/2016 [facility] M /HPF 3:49 PM T [facility] Bacteria Urine Few (A) NEG^Negat 12/07/2016 [facility] paula /HPF 3:49 PM T [facility] Squamous 1 0 - 1 12/07/2016 U OF M Epithelial /HPF /HPF 3:49 PM T [facility] Mucous Urine Present (A) NEG^Negat 12/07/2016 [facility] M pa[place] /LPF 3:49 PM [facility] Specimen (Source) Anatomical Collection Method Collection Time Re ceived Time Location / / Volume Laterality Examination of URINE SPECIMEN 12/07/2016 2:55 12/08/19 17 3:22 midstream urine OBTAINED BY CLEAN PM CDT PM CDT specimen CATCH PROCEDURE / (procedure) Unknown Nora Leyva MD LAB - URINE ORDERABLES Performing Organization Address City/State/ZIP Code Phon e Number [facility] [address] [place] [address] [facility] [place] [place] U OF M [facility] Drug abuse scrn 7 UR (/) (RH, SH, UR) (12/07/2016 2:55 PM CDT) [facility] Method Time Signature Amphetamine Qual Negative NEG^Negat 12/07/2016 UNIVERSITY O F Urine paula 3:48 PM T [facility] Comment: Cutoff for a negative amphetami ne is 500 ng/mL or less. Cannabinoids Qual Negative NEG^Negative 12/07/2016 3:48 PM [facility] Urine [facility] Comment: Cutoff for a negative cannabino id is 50 ng/mL or less. Cocaine Qual Urine Negative NEG^Negative 12/07/2016 3:48 PM [facility] Comment: Cutoff for a negative cocaine i s 300 ng/mL or less. Opiates Qualitative Negative NEG^Negative 12/07/2016 3:48 P M [facility] Urine CDT [facility] Comment: Cutoff for a negative opiate is 300 ng/mL or less. Pcp Qual Urine Negative NEG^Negative 12/07/2016 3:48 PM CDT [facility] Comment: Cutoff for a negative PCP is 25 ng/mL or less. Specimen Anatomical Collection Method Collection Time Receive d Time (Source) Location / / Volume Laterality Urine specimen URINE SPECIMEN 12/07/2016 2:55 PM 12/07 3:22 (specimen) OBTAINED BY CLEAN CDT PM CDT CATCH PROCEDURE / Unknown Nora Leyva MD LAB - URINE ORDERABLES Performing Organization Address City/[facility] Phon e Number [address] Chlamydia trachomatis PCR (12/07/2016 2:54 PM CDT) Patholo gist Method Time Signature Specimen Vagina 12/07/2016 UNIVERSITY OF Description 3:13 PM CDT [facility] Chlamydia Negative NEG^Negat 12/08/2016 UNIVERSITY OF Trachomatis PCR paula 1:55 PM CDT [facility] Comment: Negative for C. trachomatis rRNA by prescott scription mediated amplification. A negative result by rfid systems architect media kris amplification does not preclude the [...] ORDERABL ES Performing Organization Address City/[facility] Phon e Number [facility] [address] Neisseria gonorrhoeae PCR (12/07/2016 2:54 PM CDT) Analysis Performed At Patho logist Time Signature Specimen Vagina 12/07/2016 UNIVERSITY OF Descrip 3:13 PM CDT [facility] N Gonorrhea Negative NEG^Negati 12/08/2016 [facility] PCR ve 1:55 PM CDT [facility] Comment: Negative for N. gonorrhoeae rRNA by prescott scription mediated amplification. A negative result by rfid systems architect media kris amplification does not preclude the [...] City/[facility]/ZIP Code Phon e Number [facility] [address] [place], [place] [phone] [place] [address] Wet prep (12/07/2016 2:54 PM CDT) Component Value Ref Test Analysis Performed At [facility] Range Method Time Signature Specimen Vagina [facility] Description [facility] Wet Prep No Trichomonas 12/07/2016 [facility] seen 3:34 PM CDT [facility] Wet Prep No yeast seen 12/07/2016 [facility] 3:34 PM CDT [facility] Wet Prep Moderate 12/07/2016 [facility] PMNs seen 3:34 PM CDT [facility] Wet Prep No clue cells 12/07/2016 [facility] seen 3:34 PM CDT [facility] Specimen Anatomical Collection Method Collection Time Receive d Time (Source) Location / / Volume Laterality Specimen from 12/07/2016 2:54 PM 12/08/19 17 3:10 vagina CDT PM CDT (specimen) Nora Leyva MD LAB - MICRO GENERAL ORDERABL ES Performing Organization Address City/[facility]/ZIP Code Phon e Number [address] (ABNORMAL) Group B strep PCR (12/07/2016 2:54 PM CDT) [facility] Method Time Signature Group B Strep Vaginal 12/07/2016 [facility] PCR Spec Valdemar Rectal 2:58 PM CDT [facility] Group B Strep Positive (A) NEG^Negat 12/08/2016 [facility] F PCR paula 1:27 PM CDT [facility] Comment: Positive: GBS DNA detected, presumed pos itive for GBS. Assay performed on incubated broth cultu re of specimen using TaDaweb real-time PCR. Specimen Anatomical Collection Method Collection Time Receive d Time (Source) Location / / Volume Laterality Vaginal Rectal 12/07/2016 2:54 PM 017 3:14 CDT PM CDT Nora Leyva MD LAB - MICRO GENERAL ORDERABL ES Performing Organization Address City/State/ZIP Code Phon e Number [facility] [address] [place], [place] [phone] [place] [id number] [place] [address] ABO/Rh type and screen (12/07/2016 2:41 PM CDT) [facility] [employer] Method Time Signature ABO B 12/07/2016 [facility] 6:08 PM CDT [facility] RH(D) Pos [facility] Antibody Neg 12/07/2016 [facility] Screen 6:08 PM CDT [facility] Test Valid [facility] of 12/07/2016 [facility] [place] 5:[address] [facility] BANK w Hospital Specimen 12/10/2016 12/07/2016 [facility] Expires 5:31 PM CDT [facility] Specimen Anatomical Collection Method Collection Time Receive d Time (Source) Location / / Volume Laterality Blood specimen 12/07/2016 2:41 PM 017 2:44 (specimen) CDT PM CDT Rossana Barker MD LAB - BLOOD BANK TEST ORDER Performing Organization Address City/[facility]/ZIP Code Phon e Number [address] [address] [facility] [place] [place] (ABNORMAL) CBC with platelets (12/07/2016 2:41 PM CDT) [facility] [employer] Method Time Signature WBC 8.4 4.0 - 11.0 12/07/2016 [facility] 10e9/L 2:47 PM CDT [facility] RBC Count 3.10 (L) 3.8 - 5.2 12/07/2016 [facility] 10e12/L 2:47 PM CDT [facility] Hemoglobin 9.4 (L) 11.7 - 12/07/2016 [facility] 15.7 g/dL 2:47 PM CDT [facility] Hematocrit 28.2 (L) 35.0 - 12/07/2016 [facility] 47.0 % 2:47 PM CDT [facility] MCV 91 78 - 100 12/07/2016 [facility] fl 2:47 PM CDT [facility] MCH 30.3 26.5 - 12/07/2016 [facility] 33.0 pg 2:47 PM CDT [facility] MCHC 33.3 31.5 - 12/07/2016 [facility] 36.5 g/dL 2:47 PM CDT [facility] RDW 17.1 (H) 10.0 - 12/07/2016 [facility] 15.0 % 2:47 PM CDT [facility] Platelet Count 185 150 - 450 12/07/2016 [facility] 10e9/L 2:47 PM CDT [facility] Specimen Anatomical Collection Method Collection Time Receive d Time (Source) Location / / Volume Laterality Blood specimen 12/07/2016 2:41 PM 017 2:42 (specimen) CDT PM CDT Rossana Barker MD LAB - BLOOD ORDERABLES Performing Organization Address City/State/ZIP Code Phon e Number [facility] [address] [place] [address] [facility] [place] [place] (ABNORMAL) Referral sensitivity (12/07/2016 1:27 PM CDT) Component Value Ref Test Analysis Performed At [facility] Range Method Time Signature Specimen Vaginal [...] Code Phon e Number INFECTIOUS DISEASES [address] [place] [address] DIAGNOSTIC LABORATORY, [facility] INFECTIOUS DISEASE [address] [place] [address], [facility] DIAGNOSTIC LABORATORY documented in this encounter Visit Diagnoses Not on filedocumented in this encounter Administered Medications Inactive Administered Medications - up to 3 most recent administrations Medication Order MAR Action Action Date Dose Rate Site acetaminophen (TYLENOL) tablet Given 12/27/2016 12:40 PM CRIMINAL DEFENSE LAWYER 975 mg 975 mg 975 mg, Oral, EVERY 8 HOURS, First dose on Fri12/25/16 at 0000, For 3 days, Do not use if patient has an active opioid/acetaminophen analgesic order for pain Maximum acetaminophen dose from all sources = 75 mg/kg/day not to exceed 4 grams/day., Post-procedure Given 12/27/2016 2:07 AM CRIMINAL DEFENSE LAWYER 975 mg Given 12/26/2016 6:00 PM CRIMINAL DEFENSE LAWYER 975 mg bacitracin ointment Given 12/27/2016 8:12 AM CRIMINAL DEFENSE LAWYER Topical, 3 TIMES DAILY, First dose on Fri12/22/16 at 1400, Apply to areas of picking. Given 12/25/2016 1:01 PM CRIMINAL DEFENSE LAWYER Given 12/24/2016 7:56 AM CRIMINAL DEFENSE LAWYER benzocaine (ORAJEL MAXIMUM STRENGTH) 20 % gel Given 12/24/2016 9:19 AM CRIMINAL DEFENSE LAWYER Mouth/Throat, 4 TIMES DAILY PRN, moderate pain, Starting on Fri12/23/16 at 0935, Apply to side of tongue near sore bisacodyl (DULCOLAX) Suppository 10 mg Given 12/25/2016 9:53 PM CRIMINAL DEFENSE LAWYER 10 mg 10 mg, Rectal, DAILY PRN, constipation, Starting on Fri12/25/16 at 2148, Start POD 2, Post-procedure buprenorphine (SUBUTEX) sublingual table t 2 mg Given 12/27/2016 8:10 AM CRIMINAL DEFENSE LAWYER 2 mg 2 mg, Sublingual, 5 TIMES DAILY, First dose on 12/07/16 at 1545 Given 12/27/2016 4:06 AM CRIMINAL DEFENSE LAWYER 2 mg Given 12/26/2016 10:38 PM CRIMINAL DEFENSE LAWYER 2 mg buPROPion (WELLBUTRIN SR) 12 hr tablet 1 50 mg Given 12/27/2016 8:10 AM CRIMINAL DEFENSE LAWYER 150 mg 150 mg, Oral, DAILY, First dose on Fri12/17/16 at 0800, DO NOT CRUSH. Given 12/26/2016 8:23 AM CRIMINAL DEFENSE LAWYER 150 mg Given 12/25/2016 7:52 AM CRIMINAL DEFENSE LAWYER 150 mg diphenhydrAMINE (BENADRYL) capsule 25 mg Given 12/25/2016 7:23 PM CRIMINAL DEFENSE LAWYER 25 mg 25 mg, Oral, EVERY 6 [...] emollient (VANICREAM) cream Given 12/24/2016 9:19 AM CRIMINAL DEFENSE LAWYER Topical, EVERY 2 HOURS PRN, other, area of dry skin, Starting on Fri12/15/16 at 1239, Apply to areas of dry skin hydrocortisone (CORTAID) 1 % cream Given 12/27/2016 8:12 AM CRIMINAL DEFENSE LAWYER Topical, 2 TIMES DAILY, First dose on Fri12/17/16 at 2115, Apply to upper arms and left abdomen Given 12/25/2016 8:09 AM CRIMINAL DEFENSE LAWYER Given 12/23/2016 8:48 AM CRIMINAL DEFENSE LAWYER Left Arm ibuprofen (ADVIL/MOTRIN) tablet 600 mg Given 12/27/2016 9:24 AM CRIMINAL DEFENSE LAWYER 600 mg 600 mg, Oral, EVERY 6 HOURS RT, First dose (after last modification) on Zoe 12/26/16 at 0800, Ibuprofen to start after toradol finishes Given 12/27/2016 3:07 AM CRIMINAL DEFENSE LAWYER 600 mg Given 12/26/2016 9:01 PM CRIMINAL DEFENSE LAWYER 600 mg levothyroxine (SYNTHROID/LEVOTHROID) tablet Given 12/18 8:10 AM CRIMINAL DEFENSE LAWYER 150 mcg 150 mcg 150 mcg, Oral, DAILY, First dose (after last modification) on Fri12/11/16 at 0800, Separate oral administration of iron- or calcium-containing products and levothyroxine by at least 4 hours. Given 12/26/2016 8:24 AM CRIMINAL DEFENSE LAWYER 150 mcg Given 12/25/2016 7:52 AM CRIMINAL DEFENSE LAWYER 150 mcg magic mouthwash suspension (diphenhydramine, lidocaine , aluminum-magnesium & simethicone) 10 mL, Swish & Swallow, EVERY 6 HOURS PA N, mouth sores, Starting on Tu12/24/16 at [...] 15-20 m g Given 12/27/2016 12:40 PM CRIMINAL DEFENSE LAWYER 20 mg 15-20 mg, Oral, EVERY 3 HOURS PRN, moderate to severe pain, Starting on Fri12/25/16 at 1645, Patient is an opioid tolerant patient and will require higher narcotic doses due to buprenorphine. Given 12/27/2016 9:24 AM CRIMINAL DEFENSE LAWYER 20 mg Given 12/27/2016 6:21 AM CRIMINAL DEFENSE LAWYER 20 mg potassium chloride (KLOR-CON) Packet 20- [...] to opioids., Post-procedure Given 12/26/2016 9:01 PM CRIMINAL DEFENSE LAWYER 2 tablets Given 12/26/2016 8:23 AM CRIMINAL DEFENSE LAWYER 2 tablets simethicone (MYLICON) chewable tablet 80 mg Given 12/26/2016 1:54 PM CRIMINAL DEFENSE LAWYER 80 mg 80 mg, Oral, 4 TIMES DAILY PRN, other, gas, Starting on Fri12/25/16 at 0352, Chew., Post-procedure Given 12/26/2016 6:36 AM CRIMINAL DEFENSE LAWYER 80 mg Given 12/26/2016 12:31 AM CRIMINAL DEFENSE LAWYER 80 mg sodium chloride (OCEAN) 0.65 % nasal spray Given 12/08 10:57 AM CDT 1 spray 1 spray 1 spray, Both Nostrils, EVERY 1 HOUR PRN, congestion, Starting on 12/08/16 at 1027 sodium chloride (PF) 0.9% PF flush 3 mL Given 12/26/2016 6:58 AM CRIMINAL DEFENSE LAWYER 3 mLs 3 mL, Intracatheter, EVERY 1 HOUR PRN, line flush, for peripheral IV flush post IV meds, Starting on Fri12/25/16 at 0352, Post-procedure Given 12/26/2016 5:07 AM CRIMINAL DEFENSE LAWYER 3 mLs Given 12/26/2016 1:52 AM CRIMINAL DEFENSE LAWYER 3 mLs venlafaxine (EFFEXOR-ER) 24 hr tablet 15 0 mg Given 12/27/2016 8:10 AM CRIMINAL DEFENSE LAWYER 150 mg 150 mg, Oral, DAILY WITH BREAKFAST, First dose (after last modification) on Fri12/09/16 at 0800, DO NOT CRUSH. Given 12/26/2016 8:23 AM CRIMINAL DEFENSE LAWYER 150 mg Given 12/25/2016 11:12 AM CRIMINAL DEFENSE LAWYER 150 mg documented in this encounter Active and Recently Administered Medications Times are shown in CRIMINAL DEFENSE LAWYER. Scheduled Medication Order 12/25/2016 12/26/2016 12/27/2016 acetaminophen [...] Generic Provider)0333 (Canceled Entry - Provider: Khloe Emlore RN) 1018 (Not Given - Provider: Hyacinth [...] HYDROmorphone (DILAUDID) Loading Dose ad ministered from COMPUTER AIDED DESIGN TECHNICIAN 0.2-0.3 mg (COMPLETED) 0336 (Given - Provider: Khloe Elmore, GENARO) 0.2-0.3 mg, Intravenous, COMPUTER AIDED DESIGN TECHNICIAN LOADING DOS E, Fri12/25/16 at 0000, For 1 dose, LOADING DOSE (bolus) with start of COMPUTER AIDED DESIGN TECHNICIAN. DO NOT GIVE IF A LOADING BOLUS DOSE HAS ALREADY BEEN GIVEN. (If loading dose not given from COMPUTER AIDED DESIGN TECHNICIAN, bar code scan must be overridden to chart dose)., Pos t-procedure HYDROmorphone (DILAUDID) COMPUTER AIDED DESIGN TECHNICIAN 1 mg/mL (CANCELED) 0100 ( New Syringe/Cartridge - Provider: Lisa Rubio RN)0218 (Auto Hold - Provider: Orders Generic Provider - Reason: Transfer to a procedural area)0253 (Unhold - Provider: Marleny Kang MD) COMPUTER AIDED DESIGN TECHNICIAN dose (mg): 0.2, Max COMPUTER AIDED DESIGN TECHNICIAN dose (mg): 0 .3, Lockout Interval (min): 10 minutes, COMPUTER AIDED DESIGN TECHNICIAN Continuous Rate (mg/hr): CONTINUOUS RATE IS NOT RECOMMENDED FOR OPIOID NAIVE PATIENTS, Hour Limit (mg): 1.8, First dos e on Fri12/25/16 at 0000, Do NOT give an y additional opioids while on COMPUTER AIDED DESIGN TECHNICIAN. When transitioning from COMPUTER AIDED DESIGN TECHNICIAN to oral opioids MAY give first oral opioid dose 30 minutes PRIOR to discontinuation of COMPUTER AIDED DESIGN TECHNICIAN., Intravenous, Post-procedure HYDROmorphone (DILAUDID) COMPUTER AIDED DESIGN TECHNICIAN 1 mg/mL (CANCELED) 0454 ( Rate/Dose Verify - Provider: Khloe Elmore RN)0508 (Canceled Entry - Provider: Khloe Elmore RN)0624 (Shift Total - Provider: Khloe Elmore RN) COMPUTER AIDED DESIGN TECHNICIAN dose (mg): 0.2, Max COMPUTER AIDED DESIGN TECHNICIAN dose (mg): 0 .3, Lockout Interval (min): 10 minutes, COMPUTER AIDED DESIGN TECHNICIAN Continuous Rate (mg/hr): CONTINUOUS RATE IS NOT RECOMMENDED FOR OPIOID NAIVE PATIENTS, Hour Limit (mg): 2, First dose on Fri12/25/16 at 0430, Do NOT give any additional opioids while on COMPUTER AIDED DESIGN TECHNICIAN. When transitioning from COMPUTER AIDED DESIGN TECHNICIAN to oral opioids MAY give first oral opioid dose 30 minutes PRIOR to discontinuation of COMPUTER AIDED DESIGN TECHNICIAN., Intravenous, Post-procedure HYDROmorphone (DILAUDID) COMPUTER AIDED DESIGN TECHNICIAN 1 mg/mL (CANCELED) 0845 ( Canceled Entry - Provider: Fransisca Gates RN)0901 (Rate/Dose Verify - Provider: Fransisca Gates RN)1350 (Stopped - Provider: Maria Antonia Hidalgo RN) COMPUTER AIDED DESIGN TECHNICIAN dose (mg): 0.3, Max COMPUTER AIDED DESIGN TECHNICIAN dose (mg): 0 .5, Lockout Interval (min): 10 minutes, COMPUTER AIDED DESIGN TECHNICIAN Continuous Rate (mg/hr): 0.3, MAX Continuous Rate [...] mg (CANCELED ) 0507 (Given - Provider: Lucialamberto Cotton RN)0657 (Given - Provider: Lucia Cotton [...] Intravenous, EVERY 1 HOUR PA N, Starting 12/25/16 at 1559, Until Zoe [...]
Post-procedure documented in this encounter Care Teams Rotary Rock Drilling Machine Operator Relationship Specialty Start Date End Date Luis Fernando Magana PCP - General Family Practice 12/07/16 01/19/[address] [address] documented as of this encounter
--- OUTSIDE RECORDS SUMMARY | 2021-12-14 16:24 | XMS_ITS | Encounter Summary ---
:1980 Author Organization [place] Address [address] [place] [address]. 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 Anesthetic techniques and relevant risks discussed: Regional and GA Invasive monitoring and risk discussed: Yes Types: Possibility and Risk of blood transfusion discussed: Yes NPO instructions given: Other (comment) Additional anesthetic preparation and risks discussed: Invasive monitoring Needs early admission to pre-op area: Yes Other: PAC Resident/DEGREASING SOLUTION MIXER Anesthesia Assessment: Mid-Level Provider/Resident: Date: Time: Attending [...] Visit Wound Care Luis Camara DPM [address] [place], [place] [phone] (Wo rk) 01/21/2022 PRE VISIT Gastroenterology Landon Warren, *-*HEATHER Barriga RECORDS*-* MD Luis Fernando [address] [facility] [address] [place], [place] [address] (Wo rk) 01/21/2022 Office Visit Gastroenterology Juanis Levi [facility] [place] [phone] Luis Fernando Miles MD [address] [facility] [address] [place] [address] documented as of this encounter Visit Diagnoses Not on filedocumented in this encounter Care Teams Solderer Assembly Repair Relationship Specialty Start Date End Date Luis Fernando Magana PCP - General Family Practice 12/07/16 01/19/[address] [address] documented as of this encounter
--- OUTSIDE RECORDS SUMMARY | 2021-12-14 16:24 | XMS_ITS | Encounter Summary ---
:1980 Author Organization [facility] Address [address] [facility] [place] [address] Care Team Providers Name Role Phone Luis Fernando Magana Primary Care Provider Reason for Visit Auth/Cert Specialty Diagnoses / Procedures Referred By Contact Refer red To Contact production director Diagnoses Maternity*JEAN MARIE: 03/07/2017 Rupture premature rupture of membranes (PPROM) delivered, current hospitalization [facility] [address] [place] [address] Phone: Referral ID Status Reason Start Date Expiration Date Visits Requ ested Visits Authorized [id number] 12/09/2016 12/09/2017 1 1 Encounter Details Date Type Department Care Team Description 12/16/2016 Hospital Encounter [facility] Asaf Manzanares Maternal MD Tigist [facility] Center [address] 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 NO: [id number] Referring ??: CHRIST LOZADA Site: [facility] Pile Trimmer: Jay Lu DOB: 1980 Age: 36 INDICATION Premature Rupture of Membranes ( PPROM) Complete previa. METHOD [facility] ANTEPARTUM inpatient exam, Transabd ominal ultrasound examination. [...] Pat. Name:Elizabeth REDDY Date:12/16 8:43am Pat. NO: [id number] :CHRIST BHAT ON [facility]Yesenia Sen RDMS :1980Age:36 INDICATION Premature Rupture of Membranes ( PPROM) Complete previa. METHOD [facility] ANTEPARTUM inpatient exam, Transabd ominal ultrasound examination. [...] stent with known PPROM. Erum Man[facility]anares MD [facility] documented in this encounter Visit Diagnoses Not on filedocumented in this encounter Care Teams Therapeutic Mentor Relationship Specialty Start Date End Date Luis Fernando Magana PCP - General Family Practice 12/07/16 01/19/[address] [address] documented as of this encounter
--- OUTSIDE RECORDS SUMMARY | 2021-12-14 16:24 | XMS_ITS | Encounter Summary ---
:1980 Author Organization [place] Address [address] [facility] [place] [address] Care Team Providers Name Role Phone Luis Fernando Magana Primary Care Provider Reason for Visit Auth/Cert Specialty Diagnoses / Procedures Referred By Contact Refer red To Contact sports physiologist Diagnoses Maternity*JEAN MARIE: 03/07/2017 Rupture premature rupture of membranes (PPROM) delivered, current hospitalization [facility] [address] [place] [address] Phone: Referral ID Status Reason Start Date Expiration Date Visits Requ ested Visits Authorized [id number] 12/09/2016 12/09/2017 1 1 Encounter Details Date Type Department Care Team Description 12/19/[address] [facility] Asaf Manzanares Maternal MD Tigist [facility] Center [address] [facility] [address] [place] [address] [place], [place] [phone] (Wo rk) [address] [phone] Social History Tobacco Use Types Packs/Day Years Used Date Smoking Tobacco: Every Day Cigarettes 0.1 10 Smokeless Tobacco: Never Comments: 5 cigarettes a day Alcohol Use Standard Drinks/Week Comments Yes 0 (1 standard drink = 0.6 oz pure Stoppe d after found out alcohol) Sex Assigned at Date Recorded Female 01/14/2020 10:57 AM WINDOWS APPLICATION DEVELOPER documented as of this encounter Medications [...] Visit Wound Care Luis Camara DPM [address] [place] [address] (Wo rk) 01/21/2022 PRE VISIT Gastroenterology Landon Warren, *-*HEATHER Barriga RECORDS*-* MD Luis Fernando [address] [address] (Wo rk) 01/21/2022 Office Visit Gastroenterology Juanis Levi [address] [place] [address] Luis Fernando Miles MD [address] [facility] [address] [place] [address] documented as of this encounter Procedures Procedure [...] 8:16 AM CDT Impressions 12/25/2016 9:13 AM WINDOWS APPLICATION DEVELOPER IMPRESSION 1) Intrauterine at 28 6/7 week s gestational age. 2) The BPP is reassuring. 3) Oligohydramnios is seen consistent wi th know PPROM. 4) A complete posterior placenta previa is again seen. Narrative 12/25/2016 9:13 AM WINDOWS APPLICATION DEVELOPER BPP Pat. Name: STEPHANI KING Study Date: 8:16am Pat. NO: [id number] Referring ??: CHRIST LOZADA Site: [facility] Catalyst Impregnator: Jay Lu : 1980 Age: 36 INDICATION Premature Rupture of Membranes ( PPROM) Complete previa. METHOD [facility] ANTEPARTUM inpatient exam, Transabd ominal ultrasound [...] Pat. Name:Elizabeth KING Date:12/19 8:16am Pat. NO: [id number] MD:CHRIST BHAT ON [facility]:Yesenia Sen RDMS :1980Age:36 INDICATION Premature Rupture of Membranes ( PPROM) Complete previa. METHOD [facility] ANTEPARTUM inpatient exam, Transabd ominal ultrasound [...] [place] rasound with the patient. Continue surveillance with [facility] weekly BPP. Continue inpatient management [...] previa is again seen. Erum Manzanares MD [facility] ORDERABLES documented in this encounter Visit Diagnoses Not on filedocumented in this encounter Care Teams Fruit Or Nut Grower Relationship Specialty Start Date End Date Luis Fernando Magana PCP - General Family Practice 12/07/16 01/19/18 [place] [address] documented as of this encounter
--- OUTSIDE RECORDS SUMMARY | 2021-12-14 16:24 | XMS_ITS | Encounter Summary ---
:1980 Author Organization [place] Address [address] [facility] [place] [address] Care Team Providers Name Role Phone Luis Fernando Magana Primary Care Provider Reason for Visit Auth/Cert Specialty Diagnoses / Procedures Referred By Contact Refer red To Contact front end loader operator Diagnoses Maternity*JEAN MARIE: 03/07/2017 Rupture premature rupture of membranes (PPROM) delivered, current hospitalization [facility] [address] [place] [address] Phone: Referral ID Status Reason Start Date Expiration Date Visits Requ ested Visits Authorized [id number] 12/09/2016 12/09/2017 1 1 Encounter Details Date Type Department Care Team Description 12/12/2016 Hospital Encounter [facility] [place] [address] [place] [address] Social History Tobacco Use Types Packs/Day Years Used Date Smoking Tobacco: Every Day Cigarettes 0.1 10 Smokeless Tobacco: Never Comments: 5 cigarettes a day Alcohol Use Standard Drinks/Week Comments Yes 0 (1 standard drink = 0.6 oz pure Stoppe d after found out alcohol) Sex Assigned at Date Recorded Female 01/14/2020 10:57 AM SOCIAL SERVICES DIRECTOR documented as of this encounter Medications at [...] Visit Wound Care Luis Camara, [place] [address] [place] [address] (Wo rk) 01/21/2022 PRE VISIT Gastroenterology Landon [place], *-*HEATHER G RECORDS*-* MD Luis Fernando [address] [place] [phone] (Wo rk) 01/21/2022 Office Visit Gastroenterology Juanis Levi [address] [place] [phone] Luis Fernando Miles MD [address] [place] [phone] documented as of this encounter Procedures Procedure [...] STEPHANI REDDY Study Date: 7:48am Pat. NO: [id number] Referring ??: CHRIST LOZADA Site: [facility] Plate Straightener: Jay Lu : 1980 Age: 36 INDICATION Premature Rupture of Membranes ( PPROM), Complete Previa. [facility] ANTEPARTUM inpatient exam, Transabd [...] Pat. Name:Elizabeth REDDY Date:12/12 7:48am Pat. NO: [id number] :CHRIST BHAT ON [facility] Sen RDMS :1980Age:36 INDICATION Premature Rupture of Membranes ( PPROM), Complete Previa. [facility] ANTEPARTUM inpatient exam, Transabd [...] the end of the ultrasound. Please see [facility] for further documentation regarding plan of care. [...] placental-myometrial interface appears normal. Nora Mohamud Nithya [facility] US ORDERABLES documented in this encounter Visit Diagnoses Not on filedocumented in this encounter Care Teams Safekeeping Clerk Relationship Specialty Start Date End Date Luis Fernando Magana PCP - General Family Practice 12/07/16 01/19/[address] [address] documented as of this encounter
--- OUTSIDE RECORDS SUMMARY | 2021-12-14 16:24 | XMS_ITS | Encounter Summary ---
:1980 Author Organization [place] Address [address] [facility] [place] [address] Care Team Providers Name Role Phone [place] Luis Fernando Cortes Primary Care Provider Encounter Details Date Type Department Care Team Description 12/20/2016 Orders Only [facility] Tarsha Torres Plac enta accreta in Birthplace MD Ann Marie third trimester [address] [facility] (Primary Dx) [place] [address] Social History Tobacco Use Types Packs/Day Years Used Date Smoking Tobacco: Every Day Cigarettes 0.1 10 Smokeless Tobacco: Never Comments: 5 cigarettes a day Alcohol Use Standard Drinks/Week Comments Yes 0 (1 standard drink = 0.6 oz pure Stoppe d after found out alcohol) Sex Assigned at Date Recorded Female 01/14/2020 10:57 AM BUDGET RECORD CLERK documented as of this encounter Plan of Treatment Upcoming Encounters Date Type Specialty Care Team Description 12/20/2021 Office Visit Wound Care Luis Camara, [place] [address] [place], [place] [phone] (Wo rk) 01/21/2022 PRE VISIT Gastroenterology Landon [place], *-*HEATHER G RECORDS*-* MD Luis Fernando [address] [facility] [address] [place] [address] (Reinaldo rk) 01/21/2022 Office Visit Gastroenterology Juanis Levi [address] [place] [address] Luis Fernando Miles MD [address] [facility] [address] [place] [address] documented as of this encounter Visit Diagnoses Diagnosis Placenta accreta in third trimester - Pr imary Retained placenta without hemorrhage, un specified as to episode of care documented in this encounter Care Teams Section Weaver Relationship Specialty Start Date End Date Luis Fernando Magana PCP - General Family Practice 12/07/16 01/19/[address] [address] documented as of this encounter
--- OUTSIDE RECORDS SUMMARY | 2021-12-14 16:25 | XMS_ITS | Encounter Summary ---
:1980 Author Organization [place] Address [address] [facility] [place] [address] Care Team Providers Name Role Phone Clinic, [facility] Primary Care Provide r Reason for Visit Reason Onset Date Comments Prior Auth - Medication 09/09/2016 Buprenorphine HC L 2 mg Encounter Details Date Type Department Care Team Description 09/09/2016 Telephone [facility] Edgar Alfredo Pri or Auth - Medication Clinic Ashly VÁSQUEZ (Buprenorphine HCL [address] [place] ) [address] [place] [phone] (Wo rk) Social History Tobacco Use Types Packs/Day Years Used Date Smoking Tobacco: Every Day Cigarettes 0.1 10 Smokeless Tobacco: Never Comments: 5 cigarettes a day Alcohol Use Standard Drinks/Week Comments Yes 0 (1 standard drink = 0.6 oz pure Stoppe d after found out alcohol) Sex Assigned at Date Recorded Female 01/14/2020 10:57 AM CREATIVE SERVICES DIRECTOR documented as of this encounter Miscellaneous Notes Telephone Encounter - Lupe Lantigua CMA - 09/13/2016 9:09 AM CDT Staff called [facility] [place] Department at [phone] PA was APPROVED 08/10/2016 through 09/09/2017. [place] Case# [id number]. Lupe Lantigua MA Telephone Encounter - Lupe Lantigua CMA - 09/10/2016 8:21 AM CDT Staff called [facility] PA Department at [phone] (Option#3). Staff is waiting for PA request to be faxed. Staff completed and faxed PA request for Subutex 2mg tablets 120 tablets per 30 days. Lupe Lantigua MA Telephone Encounter - Mark Roldan - 09/09/2016 2:29 PM CDT Prior Authorization needed on: 09/09/16 Medication: Buprenorphine HCL Dose: 2 mg Pharmacy confirmed as [facility] , Insurance: Go to [employer] Insurance vigil: [id number] Mark Roldan September 09, 2016 at 2:29 PM documented in this encounter Plan of Treatment Upcoming Encounters Date Type Specialty Care Team Description 12/20/2021 Office Visit Wound Care Luis Camara DPM [address] [place] [address] (Reinaldo rk) 01/21/2022 PRE VISIT Gastroenterology Landon [place], *-*WANDAIN G RECORDS*-* MD Luis Fernando [address] [place] [address] (Wo rk) 01/21/2022 Office Visit Gastroenterology Juanis Levi [address] [place] [phone] Luis Fernando Miles MD [address] [place] [address] documented as of this encounter Visit Diagnoses Not on filedocumented in this encounter Care Teams Sanitary Inspector Relationship Specialty Start Date End Date Clinic, [facility] PCP - General 07/14/16 12/06/[address] [place] [address] documented as of this encounter
--- OUTSIDE RECORDS SUMMARY | 2021-12-14 16:25 | XMS_ITS | Encounter Summary ---
:1980 Author Organization [place] Address [facility] [place] [address] Care Team Providers Name Role Phone Clinic, [facility] Primary Care Provide r Encounter Details Date Type Department Care Team Description 11/26/2016 Telephone [facility] Ann Marie Sen MD Birthplace [address] [phone] [address] [facility] [phone] [place] [address] (Wo rk) Social History Tobacco Use Types Packs/Day Years Used Date Smoking Tobacco: Every Day Cigarettes 0.1 10 Smokeless Tobacco: Never Comments: 5 cigarettes a day Alcohol Use Standard Drinks/Week Comments Yes 0 (1 standard drink = 0.6 oz pure Stoppe d after found out alcohol) Sex Assigned at Date Recorded Female 01/14/2020 10:57 AM IT ADMINISTRATOR documented as of this encounter Miscellaneous [...] at her visit. Ann Marie Sen MD ANIMAL KEEPER HEAD, PGY2 11/26/16 documented in this encounter Plan of Treatment Upcoming Encounters Date Type Specialty Care Team Description 12/20/2021 Office Visit Wound Care Luis Camara, DPM [address] [place] [address] (Wo rk) 01/21/2022 PRE VISIT Gastroenterology Landon [place], *-*WANDAIN G RECORDS*-* MD Luis Fernando [address] [place] [phone] (Wo rk) 01/21/2022 Office Visit Gastroenterology Juanis [place] [address] [place] [phone] Luis [place] Miles MD [address] [place] [address] documented as of this encounter Visit Diagnoses Not on filedocumented in this encounter Care Teams Preschool Education Director Relationship Specialty Start Date End Date Clinic, [facility] PCP - General 07/14/16 12/06/[address] [place] [address] documented as of this encounter
--- OUTSIDE RECORDS SUMMARY | 2021-12-14 16:25 | XMS_ITS | Encounter Summary ---
:1980 Author Organization [place] Address [address] [facility] [place] [address] Care Team Providers Name Role Phone Clinic, [facility] Primary Care Provide r Reason for Visit Reason Onset Date Comments Results 10/15/2016 Encounter Details Date Type Department Care Team Description 10/15/2016 Telephone [facility] Nurse, [facility] Results [facility] Profession al Building 3rd [facility] [address] [facility] [place] [phone] Social History Tobacco Use Types Packs/Day Years Used Date Smoking Tobacco: Every Day Cigarettes 0.1 10 Smokeless Tobacco: Never Comments: 5 cigarettes a day Alcohol Use Standard Drinks/Week Comments Yes 0 (1 standard drink = 0.6 oz pure Stoppe d after found out alcohol) Sex Assigned at Date Recorded Female 01/14/2020 10:57 AM SNACK BAR ATTENDANT documented as of this encounter Miscellaneous [...] Visit Wound Care Luis Camara, [place] [address] [place], [place] [phone] (Wo rk) 01/21/2022 PRE VISIT Gastroenterology Landon [place], *-*INCOMIN G RECORDS*-* MD Luis Fernando [address] [place] [phone] (Wo rk) 01/21/2022 Office Visit Gastroenterology Juanis Levi [address] [place] [phone] Luis Fernando Miles MD [address] [place] [phone] documented as of this encounter Visit Diagnoses Not on filedocumented in this encounter Care Teams Acoustic Warfare Analyst Relationship Specialty Start Date End Date Clinic, [facility] PCP - General 07/14/16 12/06/[address] [place] [address] documented as of this encounter
--- OUTSIDE RECORDS SUMMARY | 2021-12-14 16:25 | XMS_ITS | Encounter Summary ---
:1980 Author Organization [place] Address [address] [facility] [place] [address] Care Team Providers Name Role Phone Clinic, [facility] Primary Care Provide r Reason for Visit Reason Onset Date Comments Prior Auth - Medication 10/11/2016 WELLBUTRIN SR 15 0 MG Encounter Details Date Type Department Care Team Description 10/11/2016 Telephone [facility] Edgar Alfredo Pri or Auth - Medication Clinic Ashly VÁSQUEZ (WELLBUTRIN SR 150 MG ) [address] [place] [address] [place] [phone] (Wo rk) Social History Tobacco Use Types Packs/Day Years Used Date Smoking Tobacco: Every Day Cigarettes 0.1 10 Smokeless Tobacco: Never Comments: 5 cigarettes a day Alcohol Use Standard Drinks/Week Comments Yes 0 (1 standard drink = 0.6 oz pure Stoppe d after found out alcohol) Sex Assigned at Date Recorded Female 01/14/2020 10:57 AM ASSISTANT PROFESSOR SCULPTURE documented as of this encounter Miscellaneous Notes [...] SR Dose: 150 MG Pharmacy confirmed as [facility] [place], [place] - [address] [place] [address] Insurance Name: Medicaid Insurance Phone: not legible Insurance Night Warehouse Selector placed form in Dr. Alfredo's folder Dora Merchatn October 11, 2016 at 8:43 AM documented in this encounter Plan of Treatment Upcoming Encounters Date Type Specialty Care Team Description 12/20/2021 Office Visit Wound Care Luis Camara DPM [address] [place], [place] [address] (Wo rk) 01/21/2022 PRE VISIT Gastroenterology Landon [place], *-*WANDAIN G RECORDS*-* MD Luis Fernando [address] [facility] [address] [place], [place] [address] (Wo rk) 01/21/2022 Office Visit Gastroenterology Juanis Levi [address] [place] [phone] Luis Fernando Miles MD [address] [facility] [address] [place] [address] documented as of this encounter Visit Diagnoses Not on filedocumented in this encounter Care Teams Retort Press Operator Relationship Specialty Start Date End Date Clinic, [facility] PCP - General 07/14/16 12/06/[address] [place] [address] documented as of this encounter
--- OUTSIDE RECORDS SUMMARY | 2021-12-14 16:25 | XMS_ITS | Encounter Summary ---
:1980 Author Organization [place] Address [address] [facility] [place] [address] Care Team Providers Name Role Phone Clinic, [facility] Primary Care Provide r Reason for Visit Reason Onset Date Comments Consult 09/17/2016 reschedule Encounter Details Date Type Department Care Team Description 09/17/2016 Telephone [facility] Anabelle Thomas ult (reschedule) Maternal Medicine GENARO [facility] [address] [place], [place] [address]E [place] [phone] Social History Tobacco Use Types Packs/Day Years Used Date Smoking Tobacco: Every Day Cigarettes 0.1 10 Smokeless Tobacco: Never Comments: 5 cigarettes a day Alcohol Use Standard Drinks/Week Comments Yes 0 (1 standard drink = 0.6 oz pure Stoppe d after found out alcohol) Sex Assigned at Date Recorded Female 01/14/2020 10:57 AM DEXIGRAPH OPERATOR documented as of this encounter Miscellaneous [...] Wound Care Hoa Luis Lex, DPM [address] [place] [address] (Wo rk) 01/21/2022 PRE VISIT Gastroenterology Landon [place], *-*WANDAIN G RECORDS*-* MD Luis Fernando 6 [facility] [address] [place], [place] [phone] (Wo rk) 01/21/2022 Office Visit Gastroenterology Juanis [place] [address] [place] [phone] Luis Fernando Miles MD [address] [address] documented as of this encounter Visit Diagnoses Not on filedocumented in this encounter Care Teams Cell Efficiency Supervisor Relationship Specialty Start Date End Date Clinic, [facility] PCP - General 07/14/16 12/06/[address] [place] [address] documented as of this encounter
--- OUTSIDE RECORDS SUMMARY | 2021-12-14 16:25 | XMS_ITS | Encounter Summary ---
:1980 Author Organization [place] Address [address] [place] [address] Care Team Providers Name Role Phone Clinic, [facility] Primary Care Provide r Reason for Visit Reason Onset Date Comments Medication Request 11/28/2016 Bridge for Subutex, Wellbutrin Encounter Details Date Type Department Care Team Description 11/28/2016 Telephone [facility] Edgar Alfredo, Med ication Request Clinic Ashly VÁSQUEZ (Bridge for Subutex, [address] [place] Wellbutrin ) [address] [place] [phone] (Wo rk) Social History Tobacco Use Types Packs/Day Years Used Date Smoking Tobacco: Every Day Cigarettes 0.1 10 Smokeless Tobacco: Never Comments: 5 cigarettes a day Alcohol Use Standard Drinks/Week Comments Yes 0 (1 standard drink = 0.6 oz pure Stoppe d after found out alcohol) Sex Assigned at Date Recorded Female 01/14/2020 10:57 AM DIRECTOR OF SECURITY documented as of this encounter Miscellaneous Notes [...] # refills: 1 Last Office [place] [facility] or Health prescribing provider: 10/10/16 Next 5 appointments (look out 90 days) ?? Dec 23, 2016 9:30 AM DIRECTOR OF SECURITY Return Visit with Edgar Alfredo [place] [facility] [place] ?? [address] [facility] [address] Controlled substance agreement on file: No. Documentation in problem list reviewed: Yes Processing: Call/fax RX monitoring program ([place]) reviewed: LOBSTER FISHERMAN reviewed- no concerns [place] profile: [email or web address] Santosh Pyle RN Telephone Encounter - Mark [...] last appt on 11/26. Pt cell # [phone] Pt house # [phone] buprenorphine (SUBUTEX) 2 MG SUBL sublingual tablet Last Written Prescription Date: 10/10/16 Last Fill Quantity: 140, # refills: 1 Last Office Visit with [facility] or Health prescribing provider: 10/10/16 Next 5 appointments (look out 90 days) Dec 23, 2016 9:30 AM DIRECTOR OF SECURITY Return Visit with Edgar Alfredo MD [facility] [place] [address] [facility] [phone] WELLBUTRIN SR 150 MG 12 hr tablet Last Written Prescription Date: Last Fill Quantity: 60; # refills: 1 Last Office Visit with G, P or [facility] prescribing provider: 10/10/16 Next 5 appointments (look out 90 days) Dec 23, 2016 9:30 AM DIRECTOR OF SECURITY Return Visit with Edgar Alfredo MD [facility] ([facility]) [address] [place] [address] [address] [facility] [phone] Last PHQ-9 score on record= PHQ-9 SCORE 06/21/2013 Total Score 15 Lab Results Component Value Date AST 17 10/10/2016 Lab Results Component Value Date ALT 10/10/2016 documented in this encounter Plan of Treatment Upcoming Encounters Date Type Specialty Care Team Description 12/20/2021 Office Visit Wound Care Luis Camara DPM [address] [place] [address] (Wo rk) 01/21/2022 PRE VISIT Gastroenterology Landon [place], *-*HEATHER G RECORDS*-* MD Luis Fernando [address] [place] [address] (Wo rk) 01/21/2022 Office Visit Gastroenterology Juanis Levi [address] [place] [phone] Luis Fernando Miles MD [address] [place] [phone] documented as of this encounter Visit Diagnoses Diagnosis Gastroesophageal reflux disease, esophag itis presence not specified - Primary Uncomplicated opioid dependence (H) Opioid type dependence, unspecified Major depressive disorder, recurrent epi sode, moderate (H) Major depressive disorder, recurrent epi sode, moderate documented in this encounter Care Teams Welder First Class Relationship Specialty Start Date End Date Clinic, [facility] PCP - General 07/14/16 12/06/[address] [place], [place] [address] [address] documented as of this encounter
--- OUTSIDE RECORDS SUMMARY | 2021-12-14 16:25 | XMS_ITS | Encounter Summary ---
:1980 Author Organization [place] Address [address] [facility] [place] [address] Care Team Providers Name Role Phone Clinic, [facility] Primary Care Provide r Encounter Details Date Type Department Care Team Description 10/10/2016 Orders Only M [facility] Karen Patel e dependence (H); [facility] Laborato ry MD Lashawn High-risk , first trimester; 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 [address] [place], [place] [address] (Wo rk) 01/21/2022 Office Visit Gastroenterology Juanis Levi 2450 [place] [phone] Luis Fernando Miles MD [address] [facility] [address] [place], [place] [phone] documented as of this encounter Procedures Procedure [...] for this REFLEX PM CDT affecting in [facility] are in first trimester the results section. [...] C RNA quantitative (10/10/2016 1:52 PM CDT) [facility] Method Time Signature HCV RNA Quant 5,[id number],767 HCVND^HCV 10/14/2016 UN[facility]ERSITY OF IU/ml (A) RNA Not 12:34 PM CDT [facility] [IU]/mL BANK Comment: The LEONARDO [...] (H) <1.2 Log IU/mL 10/14/2016 12:34 PM [facility] Specimen Anatomical Collection Method Collection Time Receive d Time (Source) Location / / Volume Laterality Blood specimen 10/10/2016 1:52 PM 017 1:55 (specimen) CDT PM CDT Violeta Fagan PRESIDENT [employer] IN[employer]UTION CNM LAB - BLOOD ORDERABLES Performing Organization Address City/State/ZIP Code Phon e Number [facility] [address] [place] [address] [place] (ABNORMAL) Hepatic Panel (10/10/2016 1:52 PM CDT) [facility] Method Time Signature Bilirubin Direct 0.1 0.0 - 0.2 10/10/2016 UNIVERSITY O F mg/dL 3:12 PM CDT [facility] Bilirubin Total 0.4 0.2 - 1.3 10/10/2016 [place] mg/dL 3:12 PM CDT [facility] Albumin 2.8 (L) 3.4 - 5.0 10/10/2016 UN[facility]ITY OF g/dL 3:12 PM CDT [facility] Protein Total 7.1 6.8 - 8.8 10/10/2016 UN[facility]ITY OF g/dL 3:12 PM CDT [facility] Alkaline 60 40 - 150 10/10/2016 [facility] OF Phosphatase U/L 3:19 PM CDT [facility] ALT 27 0 - 50 U/L 10/10/2016 [facility] OF 3:12 PM CDT [facility] AST 17 0 - 45 U/L 10/10/2016 UN[facility]ERSITY 3:12 PM CDT [facility] Specimen Anatomical Collection Method Collection Time Receive d Time (Source) Location / / Volume Laterality Blood specimen 10/10/2016 1:52 PM 017 1:55 (specimen) CDT PM CDT Violeta Fagan APRN [facility] LAB - BLOOD ORDERABLES Performing Organization Address City/[facility]/ZIP Code Phon e Number [address] TSH with free T4 reflex (10/10/2016 1:52 PM CDT) P athologist Signature TSH 1.66 0.40 - 4.00 10/10/2016 [facility] mU/L 3:19 PM CDT [facility] Specimen Anatomical Collection Method Collection Time Receive d Time (Source) Location / / Volume Laterality Blood specimen 10/10/2016 1:52 PM 017 1:55 (specimen) CDT PM CDT Violeta Fagan APRN CN LAB - BLOOD ORDERABLES Performing Organization Address City/[facility]/ZIP Code Phon e Number [address] (ABNORMAL) Hepatitis C antibody (10/10/2016 1:52 PM CDT) [facility] Method Time Signature Hepatitis C Reactive (A) NR^Nonrea 10/11/2016 UN[facility]ITY [facility] ctive 1:18 PM CDT [facility] Comment: A reactive result indicates one of [...] BLOOD ORDERABLES Performing Organization Address City/[facility] Code Phon e Number [address] HIV Antigen Antibody Combo [[id number]] (10/10/2016 1:52 PM CDT) [facility] [place] Method Time Signature HIV Antigen Nonreactive NR^Nonrea 10/11/2016 UN[facility]ITY OF [facility] ctive 1:18 PM CDT [facility] Comment: HIV-1 p24 Ag & HIV-1/HIV-2 Ab N ot Detected Specimen Anatomical Collection Method Collection Time Receive d Time (Source) Location / / Volume Laterality Blood specimen 10/10/2016 1:52 PM 017 1:55 (specimen) CDT PM CDT Violeta Fagan APRN, CNM LAB - BLOOD ORDERABLES Performing Organization Address City/[facility] Phon e Number [address] Hepatitis B Surface Antigen [[id number]] (10/10/2016 1:52 PM CDT) [facility] Method Time Signature Hep B Surface Nonreactive NR^Nonrea 10/11/2016 UN[facility]ITY OF Agn ctive 1:18 PM CDT [facility] Specimen Anatomical Collection Method Collection Time Receive d Time (Source) Location / / Volume Laterality Blood specimen 10/10/2016 1:52 PM 017 1:55 (specimen) CDT PM CDT Violeta Fagan APRN, CNM LAB - BLOOD ORDERABLES Performing Organization Address City/State/[facility] Code Phon e Number [address] Rubella Antibody IgG Quantitative [[id number]] (10/10/2016 1:52 PM CDT) Analysis Performed At [facility] logist Time Signature Rubella Antibody 8 IU/mL 10/11/2016 [place] F IgG Quantitative 1:44 PM CDT [facility] Comment: Equivocal, please recollect. Reference Range: ??Unvaccinated Negative 0-7 IU/mL Vaccinated or previous exposure Positive 10 IU/ml or greater Specimen Anatomical Collection Method Collection Time Receive d Time (Source) Location / / Volume Laterality Blood specimen 10/10/2016 1:52 PM 017 1:55 (specimen) CDT PM CDT Violeta aFgan APRN, CNM LAB - BLOOD ORDERABLES Performing Organization Address [facility]/ZIP Code Phon e Number [address] Anti Treponema [[id number]] (10/10/2016 1:52 PM CDT) Analysis Performed At [facility] logist Time Signature Treponema Negative NEG^Negati [facility] Specimen Anatomical Collection Method Collection Time Receive d Time (Source) Location / / Volume Laterality Blood specimen 10/10/2016 1:52 PM 017 1:55 (specimen) CDT PM CDT Violeta Fagan APRN [facility] LAB - BLOOD ORDERABLES Performing Organization Address City/[facility]/ZIP Code Phon e Number [address] (ABNORMAL) CBC with Platelets Differential [[id number]] (10/10/2016 1:52 PM CDT) Patholo gist Method Time Signature WBC 5.3 4.0 - 10/10/2016 [facility] OF 11.0 2:52 PM CDT [facility] 10e9/L [facility] [place] RBC Count 3.64 (L) 3.8 - 5.2 10/10/2016 [facility] OF 10e12/L 2:52 PM CDT [facility] Hemoglobin 11.1 (L) 11.7 - 10/10/2016 [facility] OF 15.7 g/dL 2:52 PM CDT [facility] Hematocrit 32.7 (L) 35.0 - 10/10/2016 [facility] OF 47.0 % 2:52 PM T [facility] MCV 90 78 - 100 10/10/2016 [facility] OF fl 2:52 PM T [facility] MCH 30.5 26.5 - 10/10/2016 [facility] OF 33.0 pg 2:52 PM T [facility] MCHC 33.9 31.5 - 10/10/2016 [facility] OF 36.5 g/dL 2:52 PM T [facility] RDW 13.1 10.0 - 10/10/2016 [facility] 15.0 % 2:52 PM T [facility] Platelet Count 186 150 - 450 10/10/2016 [facility] OF 10e9/L 2:52 PM T [facility] Diff Method Automated 10/10/2016 UNIVERSITY Method 2:52 PM [facility] % Neutrophils 61.4 % 10/10/2016 [facility] OF 2:52 PM T [facility] % Lymphocytes 29.2 % 10/10/2016 [facility] OF 2:52 PM [facility] % Monocytes 6.2 % 10/10/2016 [facility] OF 2:52 PM [facility] % Eosinophils 2.8 % 10/10/2016 [facility] OF 2:52 PM [facility] % Basophils 0.2 % 10/10/2016 [facility] OF 2:52 PM [facility] % Immature 0.2 % 10/10/2016 [facility] OF Granulocytes 2:52 PM T [facility] Nucleated RBCs 0 0 /100 10/10/2016 [facility] OF 2:52 PM T [facility] Absolute 3.3 1.6 - 8.3 10/10/2016 [facility] OF Neutrophil 10e9/L 2:52 PM [facility] Absolute 1.6 0.8 - 5.3 10/10/2016 [facility] OF Lymphocytes 10e9/L 2:52 PM [facility] Absolute 0.3 0.0 - 1.3 10/10/2016 [facility] OF Monocytes 10e9/L 2:52 PM T [facility] Absolute 0.2 0.0 - 0.7 10/10/2016 [facility] OF Eosinophils 10e9/L 2:52 PM CDT [facility] BANK Absolute 0.0 0.0 - 0.2 10/10/2016 [facility] OF Basophils 10e9/L 2:52 PM CDT [facility] Abs Immature 0.0 0 - 0.4 10/10/2016 [facility] OF Granulocytes 10e9/L 2:52 PM CDT [facility] Absolute 0.0 10/10/2016 [facility] OF Nucleated RBC 2:52 PM CDT [facility] Specimen Anatomical Collection Method Collection Time Receive d Time (Source) Location / / Volume Laterality Blood specimen 10/10/2016 1:52 PM 017 1:55 (specimen) CDT PM CDT Violeta Fagan APRN, CNM LAB - BLOOD ORDERABLES Performing Organization Address City/[facility] Code Phon e Number [address] [address] [facility] ABO/Rh Type and Screen [[id number]] (10/10/2016 1:52 PM CDT) [facility] gist Method Time Signature ABO B 10/10/2016 [facility] OF 6:33 PM CDT [facility] RH(D) Pos [facility] Antibody Neg 10/10/2016 [facility] OF Screen 6:33 PM CDT [facility] Test Valid University 10/10/2016 [facility] 4:54 PM CDT [facility] BANK [facility] Hospital Specimen 10/13/2016 10/10/2016 [facility] OF Expires 4:54 PM CDT [facility] Specimen Anatomical Collection Method Collection Time Receive d Time (Source) Location / / Volume Laterality Blood specimen 10/10/2016 1:52 PM 017 1:56 (specimen) CDT PM CDT Violeta Fagan APRN, CNM LAB - BLOOD BANK TEST ORD ER Performing Organization Address City/[facility]/ZIP Code Phon e Number [address] [address] [facility] 25- OH-Vitamin D (10/10/2016 1:52 PM CDT) P athologist Signature Vitamin D 51 20 - 75 10/11/2016 UNIVERSITY [facility] ug/L 1:18 PM CDT [facility] Comment: Season, race, dietary intake, and treatm ent affect the concentration of 52-ovvhpzl-Oowdmzx D. Values may decreas e during winter [...] Phon e Number [facility] [address] [place], [place] [phone] [place] [address] documented in this encounter Visit Diagnoses Diagnosis Opiate dependence (H) Opioid type dependence, unspecified High-risk , first trimester Hypothyroidism affecting in fi rst trimester Chronic hepatitis C without hepatic coma (H) documented in this encounter Care Teams Taker Off Drying Kiln Relationship Specialty Start Date End Date Clinic, [facility] PCP - General 07/14/16 12/06/[address] [place] [address] documented as of this encounter
--- OUTSIDE RECORDS SUMMARY | 2021-12-14 16:25 | XMS_ITS | Encounter Summary ---
:1980 Author Organization [place] Address [address] [place] [address] Care Team Providers Name Role Phone Clinic, [facility] Primary Care Provide r Reason for Visit Reason Comments Ultrasound TV US-H/O uterine rupture, c omplete previa and short cervix Encounter Details Date Type Department Care Team Description 10/10/2016 Office Visit [facility] Ilana Patel MD [address] [address] H/O delivery, Maternal Richard Villa MD [address] [address] currently , [facility] Center [facility] (Primary Dx) [address] [place] [address] Social History Tobacco Use Types Packs/Day Years Used Date Smoking Tobacco: Every Day Cigarettes 0.1 10 Smokeless Tobacco: Never Comments: 5 cigarettes a day Alcohol Use Standard Drinks/Week Comments Yes 0 (1 standard drink = 0.6 oz pure Stoppe d after found out alcohol) Sex Assigned at Date Recorded Female 01/14/2020 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 Richard Villa MD Maternal- Medicine documented in this encounter Plan of Treatment Upcoming Encounters Date Type Specialty Care Team Description 12/20/2021 Office Visit Wound Care Luis Camara, [place] [address] [place], [place] [phone] (Wo rk) 01/21/2022 PRE VISIT Gastroenterology Landon Warren, *-*WANDAIN G RECORDS*-* MD Luis Fernando [address] [place] [phone] (Wo rk) 01/21/2022 Office Visit Gastroenterology Juanis Levi [address] [place] [phone] Luis Fernando Miles MD [address] [place] [phone] documented as of this encounter Visit Diagnoses Diagnosis H/O delivery, currently , second trimester - Primary documented in this encounter Care Teams Dispatcher Ship Pilot Relationship Specialty Start Date End Date Clinic, [facility] PCP - General 07/14/16 12/06/[address] [place] [address] documented as of this encounter
--- OUTSIDE RECORDS SUMMARY | 2021-12-14 16:25 | XMS_ITS | Encounter Summary ---
:1980 Author Organization [place] Address [address] [place] [address] Care Team Providers Name Role Phone Clinic, [facility] Primary Care Provide r Encounter Details Date Type Department Care Team Description 10/10/2016 Hospital Encounter [facility] Lela Patel MD [address] [facility] [address] [phone] Drug dependence Maternal RaukRichard MD [address] [place], [place] [address] [address] [address] affecting Medicine Center in [facility] [address] [place] [phone] Social History Tobacco Use Types Packs/Day Years Used Date Smoking Tobacco: Every Day Cigarettes 0.1 10 Smokeless Tobacco: Never Comments: 5 cigarettes a day Alcohol Use Standard Drinks/Week Comments Yes 0 (1 standard drink = 0.6 oz pure Stoppe d after found out alcohol) Sex Assigned at Date Recorded Female 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 NO: [id number] Referring ??: LUDY HOANG BURN Site: [facility] Wallpaper Installer: Tammi Parra RDMS : 1980 Age: 36 [...] Pat. Name:Elizabeth REDDY Date:10/10 2:07pm Pat. NO: [id number] MD:JOSE ALFREDO RODRIGUEZ [facility]JOHAN Song :1980Age:36 INDICATION History of delivery, [...] length with no funneling. Lashawn Patel MD [facility] US ORDERABLES documented in this encounter Visit Diagnoses Diagnosis Drug dependence affecting in s econd trimester documented in this encounter Care Teams Machinist Wood Relationship Specialty Start Date End Date Clinic, [facility] PCP - General 07/14/16 12/06/[address] [place] [address] documented as of this encounter
--- OUTSIDE RECORDS SUMMARY | 2021-12-14 16:25 | XMS_ITS | Encounter Summary ---
:1980 Author Organization [place] Address [address] [facility] [place] [address] Care Team Providers Name Role Phone Luis Fernando Magana Primary Care Provider Reason for Visit Auth/Cert Specialty Diagnoses / Procedures Referred By Contact Refer red To Contact cylinder filler Diagnoses Maternity*JEAN MARIE: 03/07/2017 Rupture premature rupture of membranes (PPROM) delivered, current hospitalization Ur [facility] [address] [place] [address] Phone: Referral ID Status Reason Start Date Expiration Date Visits Requ ested Visits Authorized [id number] 12/09/2016 12/09/2017 1 1 Encounter Details Date Type Department Care Team Description 12/08/2016 Hospital Encounter [facility] Maternal Medicine Center Riccardo eddy [address] [place], [place] [phone] Social History Tobacco Use Types Packs/Day Years Used Date Smoking Tobacco: Every Day Cigarettes 0.1 10 Smokeless Tobacco: Never Comments: 5 cigarettes a day Alcohol Use Standard Drinks/Week Comments Yes 0 (1 standard drink = 0.6 oz pure Stoppe d after found out alcohol) Sex Assigned at Date Recorded Female 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 NO: [id number] Referring ??: CHRIST LOZADA Site: [facility] Typewriter Mechanic: Jay Lu : 1980 Age: 36 INDICATION Premature Rupture of Membranes ( PPROM) Complete previa. METHOD Transabdominal ultrasound examination, [facility] inpatient exam. View: Suboptimal view: [...] 2 lb 1 ?oz Calculated by ?Hadlock ([id number]) Head / Face / Neck Biometry: Selenium Plant Operator ?3.9 ?mm ? Amniotic Fluid / [...] Pat. Name:Elizabeth REDDY Date:12/08 9:10am Pat. NO: [id number] MD:CHRIST BHAT ON [facility]Yesenia Sen RDMS :1980Age:36 INDICATION Premature Rupture of Membranes ( PPROM) Complete previa. METHOD Transabdominal ultrasound examination, [facility] inpatient exam. View: Suboptimal view: limited [...] 2 lb 1 oz Calculated by Flora ([id number]) Head / Face / Neck Biometry: Selenium Plant Operator 3.9 mm Amniotic Fluid / FHR: [...] MARCELLA consistent with PPROM. Rossana Barker MD [facility] US ORDERABLES documented in this encounter Visit Diagnoses Not on filedocumented in this encounter Care Teams Manager Stylist Relationship Specialty Start Date End Date Luis Fernando Magana PCP - General Family Practice 12/07/16 01/19/[address] [address] documented as of this encounter
--- OUTSIDE RECORDS SUMMARY | 2021-12-14 16:25 | XMS_ITS | Encounter Summary ---
:1980 Author Organization [place] Address [address] [place] [address] Care Team Providers Name Role Phone Clinic, [facility] Primary Care Provide r Reason for Visit - Closed Specialty Diagnoses / Procedures Referred By Contact Refer red To Contact Diagnoses Supervision of high-risk , first trimester Ur Maternal Med [address] [place], [place] [address] Referral ID Status Reason Start Date Expiration Date Visits Requ ested Visits Authorized [id number] Closed 08/22/2016 08/22/2017 1 1 Encounter Details Date Type Department Care Team Description 09/03/2016 Office Visit [facility] Ilana Patel MD [address] [address] Canceled (Patient) Maternal Petrona Barone DO [address] [facility] [address] [place] [address] Medicine Center [facility] [address] [place], [place] [address] Social History Tobacco Use Types Packs/Day Years Used Date Smoking Tobacco: Every Day Cigarettes 0.1 10 Smokeless Tobacco: Never Comments: 5 cigarettes a day Alcohol Use Standard Drinks/Week Comments Yes 0 (1 standard drink = 0.6 oz pure Stoppe d after found out alcohol) Sex Assigned at Date Recorded Female 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/2020 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 documented as of this encounter Plan of Treatment Upcoming Encounters Date Type Specialty Care Team Description 12/20/2021 Office Visit Wound Care Luis Camara, [place] [address] [place] [address] (Wo rk) 01/21/2022 PRE VISIT Gastroenterology Landon Warren, *-*WANDAIN G RECORDS*-* MD Luis Fernando [address] [place] [address] (Wo rk) 01/21/2022 Office Visit Gastroenterology Juanis Levi [address] [place] [phone] Luis Fernando Miles MD [address] [place] [address] documented as of this encounter Visit Diagnoses Not on filedocumented in this encounter Care Teams Saxophone Assembler Relationship Specialty Start Date End Date Clinic, [facility] PCP - General 07/14/16 12/06/[address] [place] [address] documented as of this encounter
--- OUTSIDE RECORDS SUMMARY | 2021-12-14 16:25 | XMS_ITS | Encounter Summary ---
:1980 Author Organization [place] Address [address] [place] [address] Care Team Providers Name Role Phone Clinic, [facility] Primary Care Provide r Encounter Details Date Type Department Care Team Description 09/10/2016 Hospital Encounter [facility] Lela Patel MD [address] [phone] Supervision of Maternal Lex Woods MD [address] [place], [place] [address] [address] [address] high-risk , Medicine Center [facility] 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 NO: [id number] Referring ??: RICHARD STEIN Site: [facility] Corrosion Control Fitter: Mayela Teague RD MS : 1980 Age: [...] Pat. Name:Elizabeth REDDY Date:09/10 12:12pm Pat. NO: [id number] MD:May [facility] Site:[facility] Biloxigrapher:Mayela Teague RDMS :1980Age:35 INDICATION Vaginal bleeding , [...] without fun neling. Lashawn Patel MD [facility] US ORDERABLES documented in this encounter Visit Diagnoses Diagnosis Supervision of high-risk , firs t trimester documented in this encounter Care Teams Senior It Project Manager Relationship Specialty Start Date End Date Clinic, [facility] PCP - General 07/14/16 12/06/[address] [place] [address] documented as of this encounter
--- OUTSIDE RECORDS SUMMARY | 2021-12-14 16:25 | XMS_ITS | Encounter Summary ---
:1980 Author Organization [place] Address [address] [place] [address] Care Team Providers Name Role Phone Clinic, [facility] Primary Care Provide r Reason for Visit Reason Onset Date Comments Addiction Problem Erroneous encounter-disregard 12/01/2016 Encounter Details Date Type Department Care Team Description 11/26/2016 Office Visit [facility] Edgar Alfredo ERRONEOUS Clinic Ashly Gauthier MD ENCOUNTER--DISREGARD [address] [place] (Primary Dx) [address] [place] [phone] Social History Tobacco Use Types Packs/Day Years Used Date Smoking Tobacco: Every Day Cigarettes 0.1 10 Smokeless Tobacco: Never Comments: 5 cigarettes a day Alcohol Use Standard Drinks/Week Comments Yes 0 (1 standard drink = 0.6 oz pure Stoppe d after found out alcohol) Sex Assigned at Date Recorded Female 01/14/2020 10:57 AM PRE PLANNING ADVISOR documented as of this encounter Progress Notes Edgar Alfredo MD - 11/26/2016 11:15 AM CDT This encounter was opened in error. Please disregard. documented in this encounter Plan of Treatment Upcoming Encounters Date Type Specialty Care Team Description 12/20/2021 Office Visit Wound Care Luis Camara, CAVLIN [address] [place], [place] [phone] (Wo rk) 01/21/2022 PRE VISIT Gastroenterology Landon Warren, *-*INCOMIN G RECORDS*-* MD Luis Fernando [address] [phone] (Wo rk) 01/21/2022 Office Visit Gastroenterology Juanis Levi [address] [place] [phone] Luis Fernando Miles MD [address] [address] documented as of this encounter Visit Diagnoses Diagnosis ERRONEOUS ENCOUNTER--DISREGARD - Primary documented in this encounter Care Teams Security Checker Relationship Specialty Start Date End Date Clinic, [facility] PCP - General 07/14/16 12/06/[address] [place] [address] documented as of this encounter
--- OUTSIDE RECORDS SUMMARY | 2021-12-14 16:25 | XMS_ITS | Encounter Summary ---
:1980 Author Organization [place] Address [address] [place] [address] Care Team Providers Name Role Phone Clinic, [facility] Primary Care Provide r Reason for Visit Reason Comments Ultrasound 2/3 tri u/s- hx uterine rupt ure, PTD Encounter Details Date Type Department Care Team Description 09/10/[address] [facility] Ilana Patel MD [address] [place] [place] [address] H/O delivery, Maternal Lex Woods MD [address] [facility] [address] [place] [address] currently , Medicine Center [facility] (Primary Dx) [address] [place], [place] [address] Social History Tobacco Use Types Packs/Day Years Used Date Smoking Tobacco: Every Day Cigarettes 0.1 10 Smokeless Tobacco: Never Comments: 5 cigarettes a day Alcohol Use Standard Drinks/Week Comments Yes 0 (1 standard drink = 0.6 oz pure Stoppe d after found out alcohol) Sex Assigned at Date Recorded Female 01/14/2020 10:57 AM STEWARD/STEWARDESS CHIEF CARGO VESSEL documented as of this encounter Progress Notes Lex Woods MD - 09/10/2016 12:15 PM CDT Please see Imaging tab under Chart Review for details of today's ultrasound. Lex Woods M.D. Specialist in Maternal- Medicine documented in this encounter Plan of Treatment Upcoming Encounters Date Type Specialty Care Team Description 12/20/2021 Office Visit Wound Care [facility] Luis Lex, DPM [address] [place], [place] [phone] (Wo rk) 01/21/2022 PRE VISIT Gastroenterology Landon Warren, *-*INCOMIN G RECORDS*-* MD Luis Fernando [address] [phone] (Wo rk) 01/21/2022 Office Visit Gastroenterology Juanis Levi [address] [place] [phone] Luis Fernando Miles MD [address] [phone] documented as of this encounter Visit Diagnoses Diagnosis H/O delivery, currently , second trimester - Primary documented in this encounter Care Teams Head Batcher Relationship Specialty Start Date End Date Clinic, [facility] PCP - General 07/14/16 12/06/[address] [place] [address] documented as of this encounter
--- OUTSIDE RECORDS SUMMARY | 2021-12-14 16:25 | XMS_ITS | Encounter Summary ---
:1980 Author Organization [place] Address [address] [facility] [place] [address] Care Team Providers Name Role Phone Clinic, [facility] Primary Care Provide r Reason for Visit Reason Comments Addiction Problem Encounter Details Date Type Department Care Team Description 10/10/2016 Office Visit [facility] Edgar Alfredo Uncomplic ated opioid dependence (H); Clinic Ashly Gauthier MD Major depressive disorder, recurrent epi sode, moderate (H) [address] [place] [address] [place] [phone] Social History Tobacco Use Types Packs/Day Years Used Date Smoking Tobacco: Every Day Cigarettes 0.1 10 Smokeless Tobacco: Never Comments: 5 cigarettes a day Alcohol Use Standard Drinks/Week Comments Yes 0 (1 standard drink = 0.6 oz pure Stoppe d after found out alcohol) Sex Assigned at Date Recorded Female 01/14/2020 10:57 AM TRANSMITTER TESTER documented as of this encounter Last Filed [...] TWINS; ONE ; OTHER VIABLE GOING TO [facility]AF[facility] 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 [place] Board of Pharmacy Data Base Reviewed: YES; [...] BREAST SURGERY ABcess drained ??? SECTION ??? REPAIRER TYPEWRITER SURGERY ??? ORTHOPEDIC SURGERY ??? THORACIC SURGERY [...] Panel 13 Result Value Ref Range Cannabinoids ([id number]-KMV) Not Detected NDET^Not Detected ng/mL Phencyclidine (Phencyclidine) [...] ng/mL 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 FOR SKILLED NURSING USE OF HIGH RISK MEDICATION High Risk [...] visit in 2 MONTHS Edgar Alfredo MD [facility] documented in this encounter Plan of Treatment Upcoming Encounters Date Type Specialty Care Team Description 12/20/2021 Office Visit Wound Care Luis Camara, CALVIN [address] [place], [place] [phone] (Wo rk) 01/21/2022 PRE VISIT Gastroenterology Landon Warren, *-*WANDAIN G RECORDS*-* MD Luis Fernando [address] [place] [address] (Wo rk) 01/21/2022 Office Visit Gastroenterology Juanis Levi [address] [place] [phone] Luis Fernando Miles MD [address] [place] [phone] documented as of this encounter Procedures Procedure Name Priority Date/Time Associated Diagnosis Comme nts URINE DRUGS OF Routine 10/10/2016 3:06 PM Uncomplicated opioid Results for this ABUSE SCREEN PANEL CDT dependence (H) procedu re are in 13 the results section. documented in this encounter Results (ABNORMAL) Urine Drugs of Abuse Screen Panel 13 (10/10/2016 3:06 PM CDT) [facility] Time Signature Cannabinoids Not Detected NDET^Not 10/10/2016 LAB (83-cvr-9-carbox Detected 3:17 PM CDT y-9-THC) ng/mL Comment: [...] be used for medical purposes only. Order [id number] for confirmation or indivi dual confirmation tests to [facility]. Specimen Anatomical Collection Method Collection Time Receive d Time (Source) Location / / Volume Laterality Urine specimen 10/10/2016 3:06 PM 017 3:07 (specimen) CDT PM CDT Edgar Alfredo MD LAB - URINE ORDERABLES Performing Organization Address City/State/[facility] [place] [address] [facility] [address] [address] [facility] documented in this encounter Visit Diagnoses Diagnosis Uncomplicated opioid dependence (H) Opioid type dependence, unspecified Major depressive disorder, recurrent epi sode, moderate (H) Major depressive disorder, recurrent epi sode, moderate documented in this encounter Care Teams Junior Systems Engineer Relationship Specialty Start Date End Date Clinic, [facility] PCP - General 07/14/16 12/06/16 [facility] [place] [address] documented as of this encounter
--- OUTSIDE RECORDS SUMMARY | 2021-12-14 16:25 | XMS_ITS | Encounter Summary ---
:1980 Author Organization [place] Address [address] [facility] [place] [address] Care Team Providers Name Role Phone Clinic, [facility] Primary Care Provide r Reason for Visit Reason Onset Date Comments Medication Request 10/07/2016 Bridge for Subutex Encounter Details Date Type Department Care Team Description 10/07/2016 Telephone [facility] Edgar Alfredo, [facility] ication Request Clinic Ashly VÁSQUEZ (Bridge for Subutex ) [address] [place] [address] [place] [phone] (Wo rk) Social History Tobacco Use Types Packs/Day Years Used Date Smoking Tobacco: Every Day Cigarettes 0.1 10 Smokeless Tobacco: Never Comments: 5 cigarettes a day Alcohol Use Standard Drinks/Week Comments Yes 0 (1 standard drink = 0.6 oz pure Stoppe d after found out alcohol) Sex Assigned at Date Recorded Female 01/14/2020 10:57 AM RADIO REPAIRMAN documented as of this encounter Miscellaneous Notes Telephone Encounter - Mark Roldan - 10/07/2016 2:45 PM CDT Partnership Manager spoke with pt she's scheduled for 10/10/16 @ 3 pm. Mark Roldan Wood Heel Finisher Telephone Encounter - Edgar Alfredo MD - [...] would work for pt. Pt contact info: [phone] [facility] in [place]. Mark Roldan Wood Heel Finisher documented in this encounter Plan of Treatment Upcoming Encounters Date Type Specialty Care Team Description 12/20/2021 Office Visit Wound Care Luis Camara, [place] [address] [place], [place] [phone] (Wo rk) 01/21/2022 PRE VISIT Gastroenterology Landon Warren, *-*WANDAIN G RECORDS*-* MD Luis Fernando [address] [place] [phone] (Wo rk) 01/21/2022 Office Visit Gastroenterology Juanis Levi [address] [place] [phone] Luis Fernando Miles MD [address] [place] [phone] documented as of this encounter Visit Diagnoses Diagnosis Uncomplicated opioid dependence (H) Opioid type dependence, unspecified documented in this encounter Care Teams Pipe Testing Technician Relationship Specialty Start Date End Date Clinic, [facility] PCP - General 07/14/16 12/06/[address] [place] [address] documented as of this encounter
--- OUTSIDE RECORDS SUMMARY | 2021-12-14 16:25 | XMS_ITS | Encounter Summary ---
:1980 Author Organization [place] Address [address] [facility] [place] [address] Care Team Providers Name Role Phone Clinic, [facility] Primary Care Provide r Reason for Visit Reason Onset Date Comments Prior Auth - Medication 10/11/2016 buprenorphine (S UBUTEX) 2 MG Encounter Details Date Type Department Care Team Description 10/11/2016 Telephone [facility] Edgar Alfredo Pri or Auth - Medication Clinic Ashly VÁSQUEZ (buprenorphine [address] [place] (SUBUTEX) 2 MG) [address] [place] [phone] (Wo rk) Social History Tobacco Use Types Packs/Day Years Used Date Smoking Tobacco: Every Day Cigarettes 0.1 10 Smokeless Tobacco: Never Comments: 5 cigarettes a day Alcohol Use Standard Drinks/Week Comments Yes 0 (1 standard drink = 0.6 oz pure Stoppe d after found out alcohol) Sex Assigned at Date Recorded Female 01/14/2020 10:57 AM CHURN OPERATOR MARGARINE documented as of this encounter Miscellaneous Notes Telephone Encounter - Sarah Calvert MA - 10/11/2016 9:35 AM CDT Called [facility] to clarify the need for [...] (SUBUTEX) Dose: 2 MG Pharmacy confirmed as [facility] - [place], [place] - [address] [facility] [address] [facility] [address] Insurance Name: Submit via covermymeds Beatty: [id number] Web Systems Developer placed form in Dr. Alfredo's folder Dora Merchant October 11, 2016 at 8:28 AM documented in this encounter Plan of Treatment Upcoming Encounters Date Type Specialty Care Team Description 12/20/2021 Office Visit Wound Care Luis Camara DPM [address] [place], [place] [phone] (Wo rk) 01/21/2022 PRE VISIT Gastroenterology Landon Warren, *-*INCOMIN G RECORDS*-* MD Luis Fernando [address] [place] [place] [phone] (Wo rk) 01/21/2022 Office Visit Gastroenterology Juanis Levi [address] [place] [phone] Luis Fernando Miles MD [address] [place] [place] [phone] documented as of this encounter Visit Diagnoses Not on filedocumented in this encounter Care Teams Blankbook Forwarder Relationship Specialty Start Date End Date Clinic, [facility] PCP - General 07/14/16 12/06/16 [facility] [place] [address] documented as of this encounter
--- OUTSIDE RECORDS SUMMARY | 2021-12-14 16:25 | XMS_ITS | Encounter Summary ---
:1980 Author Organization [place] Address [address] [facility] [place] [address] Care Team Providers Name Role Phone Clinic, [facility] Primary Care Provide r Encounter Details Date Type Department Care Team Description 10/01/2016 Hospital Encounter [facility] Amanda, High -risk , Maternal MD Lashawn first trimester Medicine Center [address] [facility] [address] [facility] [phone] Social History Tobacco Use Types Packs/Day Years Used Date Smoking Tobacco: Every Day Cigarettes 0.1 10 Smokeless Tobacco: Never Comments: 5 cigarettes a day Alcohol Use Standard Drinks/Week Comments Yes 0 (1 standard drink = 0.6 oz pure Stoppe d after found out alcohol) Sex Assigned at Date Recorded Female 01/14/2020 10:57 AM RN PARALEGAL documented as of this encounter Medications at [...] Wound Care Luis Camara DPM [address] [place], [place] [address] (Wo rk) 01/21/2022 PRE VISIT Gastroenterology Landon Warren, *-*HEATHER Barriga RECORDS*-* MD Luis Fernando [address] [place] [phone] (Wo rk) 01/21/2022 Office Visit Gastroenterology Juanis Levi [address] [place] [address] Luis Fernando Miles MD [address] [place] [phone] documented as of this encounter Procedures Procedure [...] FERNANDO STEPHANI Study Date: 10:41am Pat. NO: [id number] Referring ??: RICHARD STEIN Site: [facility] Boiler House Supervisor: Magalis Pina RDMS : 1980 Age: 36 [...] ? 39.8 ?mm ? 18w 1d ? [facility] OFD ? 53.2 ?mm ? 17w 6d ? Nicolaides HC ?147.9 ?mm ?17w 6d ? Hadlock AC ?121.7 ?mm ?17w 6d ? Hadlock Femur ? 26.0 ?mm ?17w 6d ? Hadlock Cerebellum tr ? 17.0 ?mm ?17w 0d ? Nicolaides CM ? 5.0 ?mm ? Weight Calculation: EFW ? 214 ? g ? EFW (lb,oz) ? 0 lb 8 ?oz Calculated by ?Hadlock (HUG-BV-XP-FL) Head / Face / Neck Biometry: Spinning Lathe Operator ?5.2 ?mm ? Amniotic Fluid / [...] that she has transferred her care from [facility] to [facility] clinic at [facility] due to her complex history. HPI: [...] BREAST SURGERY ABcess drained ? SECTION ? WOOD GANG SAWYER SURGERY Medications: WELLBUTRIN SR 150 MG 12 [...] recommended. Regarding the hypothyroidism , we explai ryna to the patient the necessity to comply [...] Pat. Name:Elizabeth KING Date:10/01 10:41am Pat. NO: [id number] MD:May [facility]AN Garcia :1980Age:36 INDICATION Hypothyroid. Twin demise [...] 0 lb 8 oz Calculated by Flora (BFK-OF-MG-FL) Head / Face / Neck Biometry: Spinning Lathe Operator 5.2 mm Amniotic Fluid / FHR: [...] that she has transferred her care from [facility] to [facility] clinic at [facility] due to her complex history. HPI: [...] Live Births 7 #OutcomeDateGALbr Sherman/2ndWeightSexDelive ryAnesPTLLv 9Current 1Aqosval81/03/0973g4x/ 01:060.325 kg (11 .5 oz)UVag-SpontFD Apgar1: 0 Apgar5: 0 5Hypt9968TK-STkdiaJKE 8Drge4440XB-JEjzsoJFJ 5TermLIV 4TermLIV 3TermLIV 2TermDEC 1TermDEC Past Medical History: DiagnosisDate ?Anxiety ?Chronic hepatitis C (H) ?Depressive disorder ?Hypothyroid ?Suboxone maintenance treatment complica ting , antepartum (H) Past Surgical History: ProcedureLateralityDate ?BREAST SURGERY ABcess drained ? SECTION ?WOOD GANG SAWYER SURGERY Medications: WELLBUTRIN SR 150 MG 12 [...] is w ithin . Lashawn Patel MD [facility] US ORDERABLES documented in this encounter Visit Diagnoses Diagnosis High-risk , first trimester documented in this encounter Care Teams Service Unit Operator Relationship Specialty Start Date End Date Clinic, [facility] PCP - General 07/14/16 12/06/[address] [place] [address] documented as of this encounter
--- OUTSIDE RECORDS SUMMARY | 2021-12-14 16:25 | XMS_ITS | Encounter Summary ---
:1980 Author Organization [place] Address [address] [facility] [address] Care Team Providers Name Role Phone Clinic, [facility] Primary Care Provide r Reason for Visit Reason Onset Date Comments No Show 09/12/2016 x3 for MFM appt Encounter Details Date Type Department Care Team Description 09/12/2016 Telephone [facility] Maricruz Pina No Kristen w (x3 for MFM Maternal Medicine appt ) [facility] [address] [place] [address] Social History Tobacco Use Types Packs/Day Years Used Date Smoking Tobacco: Every Day Cigarettes 0.1 10 Smokeless Tobacco: Never Comments: 5 cigarettes a day Alcohol Use Standard Drinks/Week Comments Yes 0 (1 standard drink = 0.6 oz pure Stoppe d after found out alcohol) Sex Assigned at Date Recorded Female 01/14/2020 10:57 AM CONSULTING PSYCHOLOGIST documented as of this encounter Miscellaneous Notes Telephone Encounter - Maricruz Pina - 09/12/2016 3:46 PM CDT MFM received referral from [facility] in [place], [place]. Patient has been scheduled threetimes for appointments with our clinic and has no showed for all three. Removing orders. Referring clinic notified that a new referral will need to placed. Public Health Outreach Worker Maricruz Pina documented in this encounter Plan of Treatment Upcoming Encounters Date Type Specialty Care Team Description 12/20/2021 Office Visit Wound Care Luis Camara, CALVIN [address] [place], [place] [phone] (Wo rk) 01/21/2022 PRE VISIT Gastroenterology Landon Warren, *-*INCOMIN G RECORDS*-* MD Luis Fernando [address] [place] [phone] (Wo rk) 01/21/2022 Office Visit Gastroenterology Juanis Levi [address] [place] [phone] Luis Fernando Miles MD [address] [phone] documented as of this encounter Visit Diagnoses Not on filedocumented in this encounter Care Teams Delivery Driver/Customer Service Relationship Specialty Start Date End Date Clinic, [facility] PCP - General 07/14/16 12/06/[address] [place] [phone] documented as of this encounter
--- OUTSIDE RECORDS SUMMARY | 2021-12-14 16:25 | XMS_ITS | Encounter Summary ---
:1980 Author Organization [place] Address [address] [facility] [place] [address] Care Team Providers Name Role Phone Clinic, [facility] Primary Care Provide r Reason for Visit Reason Onset Date Comments Clinic Care Coordination - Follow-up 09/02/2016 NOB appt Encounter Details Date Type Department Care Team Description 09/02/2016 Telephone [facility] Women's Nurse, [facility] Clinic Care Coordination Clinic [place] - Follow-up (NOB appt) [address] [place] [address],[facility] [address] [place] [address] Social History Tobacco Use Types Packs/Day Years Used Date Smoking Tobacco: Every Day Cigarettes 0.1 10 Smokeless Tobacco: Never Comments: 5 cigarettes a day Alcohol Use Standard Drinks/Week Comments Yes 0 (1 standard drink = 0.6 oz pure Stoppe d after found out alcohol) Sex Assigned at Date Recorded Female 01/14/2020 10:57 AM BILINGUAL STUDENT TUTOR documented as of this encounter Miscellaneous [...] Visit Wound Care Luis Camara, [place] [address] [place] [address] (Wo rk) 01/21/2022 PRE VISIT Gastroenterology Landon Warren, *-*INCOMIN G RECORDS*-* MD Luis Fernando [address] [place] [address] (Wo rk) 01/21/2022 Office Visit Gastroenterology Juanis Levi [address] [place] [phone] Luis Fernando Miles MD [address] [place] [address] documented as of this encounter Visit Diagnoses Not on filedocumented in this encounter Care Teams Clinical Informatics Manager Relationship Specialty Start Date End Date Clinic, [facility] PCP - General 07/14/16 12/06/[address] [place] [address] documented as of this encounter
--- OUTSIDE RECORDS SUMMARY | 2021-12-14 16:25 | XMS_ITS | Encounter Summary ---
:1980 Author Organization [place] Address [address] [facility] [place] [address] Care Team Providers Name Role Phone Clinic, [facility] Primary Care Provide r Reason for Visit Reason Comments Consult MFM- hx of uterine rupture/m iscarriage at 19 weeks/AMA/subutex/ Ultrasound 2/3 complete/tv- hx of uteri ne rupture/miscarrige at 19 weeks/AMA/subutex - Closed Specialty Diagnoses / Procedures Referred By Contact Refer red To Contact Diagnoses Supervision of high-risk , first trimester Ur Maternal Med [address] [place], [place] [address] Referral ID Status Reason Start Date Expiration Date Visits Requ ested Visits Authorized [id number] Closed 08/22/2016 08/22/2017 1 1 Encounter Details Date Type Department Care Team Description 10/01/2016 Office Visit [facility] Amanda Drug depen dence affecting in second trimester (Primary Dx); Maternal MD GÉNESIS Hardin (advanced maternal age) multigravida 35+, second trimester; Medicine Center [address] History of loss in prior , currently in second trimester [facility] [address] [place], [place] [phone] Social History Tobacco Use Types Packs/Day Years Used Date Smoking Tobacco: Every Day Cigarettes 0.1 10 Smokeless Tobacco: Never Comments: 5 cigarettes a day Alcohol Use Standard Drinks/Week Comments Yes 0 (1 standard drink = 0.6 oz pure Stoppe d after found out alcohol) Sex Assigned at Date Recorded Female 01/14/2020 10:57 AM CONSTRUCTION ENGINEER documented as of this encounter Progress [...] that she has transferred her care from [facility] due to her complex history. HPI: [...] BREAST SURGERY ABcess drained ??? SECTION ??? PACKAGING CLERK SURGERY ??? ORTHOPEDIC SURGERY ??? THORACIC SURGERY [...] I spent a total of 30 minutes gjni-ec-smtg with Stephani King during today's office visit. Over 50% of this time was spent counseling the patient and/or coordinating care regarding complicated by prior medical and OB history as noted above . See note for details. Lashawn Patel Anabelle Thomas, GENARO - 10/01/2016 11:00 AM CDT [facility] for assessment and evaluation of her [...] for a 2/3 us, TV usand a [facility] consult. See epic for today's [...] Care Luis Camara, CALVIN [address] [place], [place] [phone] (Wo rk) 01/21/2022 PRE VISIT Gastroenterology Landon Warren, *-*WANDAIN G RECORDS*-* MD Luis Fernando [address] [place] [address] [phone] (Wo rk) 01/21/2022 Office Visit Gastroenterology Juanis Levi [address] [place] [address] Luis Fernando Miles MD [address] [place] [address] [phone] documented as of this encounter Results [facility] US Comprehensive Single (10/31/2016 2:27 [...] STEPHANI KING Study Date: 1:32pm Pat. NO: [id number] Referring ??MD: LUDY RODRIGUEZ Site: [facility] Fitness Floor Attendant: Geovanna Hassan RDMS : 1980 Age: 36 [...] 1 lb 0 ?oz Calculated by ?Hadlock ([id number]) Head / Face / Neck Biometry: Magneto Repairer ?3.6 ?mm ? Nasal bone ?6.5 ?mm [...] be vi sualized: Heart / Thorax ?RVOT. 6-mrcprl-xmrztlz view. Gender: male. MATERNAL STRUCTURES Cervix ?Visualized, [...] Pat. Name:Elizabeth KING Date:10/31 1:32pm Pat. NO: [id number] MD:JOSE ALFREDO RODRIGUEZ [facility]Geovanna Hassan RDMS :1980Age:36 INDICATION History of [...] 5.8 mm Humerus 33.8 mm 21w 3d [facility] Weight Calculation: EFW 443 g EFW (lb,oz) 1 lb 0 oz Calculated by Flora ([id number]) Head / Face / Neck Biometry: Magneto Repairer 3.6 mm Nasal bone 6.5 mm Amniotic [...] be vi sualized: Heart / Thorax RVOT. 7-jmjkys-dstmgqv vi ew. Gender: male. MATERNAL STRUCTURES Cervix [...] 6) Marginal placenta previa. Lashawn Patel [facility] documented in this encounter Visit Diagnoses Diagnosis Drug dependence affecting in s econd trimester - Primary AMA (advanced maternal age) multigravida 35+, second trimester History of loss in prior pregn jannie, currently in second trimester Drug dependence affecting in s econd trimester documented in this encounter Care Teams Banjo Repair Person Relationship Specialty Start Date End Date Clinic, [facility] PCP - General 07/14/16 12/06/[address] [place] [address] documented as of this encounter
--- OUTSIDE RECORDS SUMMARY | 2021-12-14 16:25 | XMS_ITS | Encounter Summary ---
:1980 Author Organization [place] Address [address] [place] [address] Care Team Providers Name Role Phone Clinic, [facility] Primary Care Provide r Encounter Details Date Type Department Care Team Description 10/31/2016 Hospital Encounter [facility] Lela Patel MD [address] [facility] [address] [place], [place] [id number] Drug dependence Maternal Italia Galarza DO [address] [facility] [address] [place] [address] affecting Medicine Center in [facility] [address] [place] [address] Social History Tobacco Use Types Packs/Day Years Used Date Smoking Tobacco: Every Day Cigarettes 0.1 10 Smokeless Tobacco: Never Comments: 5 cigarettes a day Alcohol Use Standard Drinks/Week Comments Yes 0 (1 standard drink = 0.6 oz pure Stoppe d after found out alcohol) Sex Assigned at Date Recorded Female 01/14/2020 10:57 AM RESIDENTIAL TEAM LEADER documented as of this encounter Medications at [...] Care Luis Camara DPM [address] [place] [address] (Wo rk) 01/21/2022 PRE VISIT Gastroenterology Landon Warren, *-*WANDAIN G RECORDS*-* MD Luis Fernando [address] [facility] [address] [place] [address] (Wo rk) 01/21/2022 Office Visit Gastroenterology Juanis Levi [address] [place] [address] Luis Fernando Miles MD [address] [facility] [address] [place] [address] documented as of this encounter Procedures Procedure Name Priority Date/Time Associated Comments Diagnosis [facility] US COMPREHENSIVE Routine 10/31/2016 2:27 PM Drug dependenc e Results for this SINGLE CDT affecting procedur e are in in second trimester the resu lts section. documented in this encounter Results [facility] US Comprehensive Single (10/31/2016 2:27 PM [...] STEPHANI REDDY Study Date: 1:32pm Pat. NO: [id number] Referring ??: LUDY HOANG BURN Site: [facility] Vineyardist: Geovanna Hassan RDMS : 1980 Age: 36 [...] 1 lb 0 ?oz Calculated by ?Hadlock ([id number]-KR-FL) Head / Face / Neck Biometry: Machine Assistant ?3.6 ?mm ? Nasal bone ?6.5 ?mm [...] be vi sualized: Heart / Thorax ?RVOT. 1-qsjfbc-tsgrntp view. Gender: male. MATERNAL STRUCTURES Cervix ?Visualized, [...] Pat. Name:Elizabeth REDDY Date:10/31 1:32pm Pat. NO: [id number] MD:JOSE ALFREDO RODRIGUEZ [facility]her[facility]Geovanna Hassan RDMS :1980Age:36 INDICATION History of delivery, [...] 1 lb 0 oz Calculated by Flora ([id number]-FL) Head / Face / Neck Biometry: Machine Assistant 3.6 mm Nasal bone 6.5 mm Amniotic [...] be vi sualized: Heart / Thorax RVOT. 9-cymkdx-ysxmepn vi ew. Gender: male. MATERNAL STRUCTURES Cervix [...] with Valsalva. 6) Marginal placenta previa. Lashawn Paetl MD [facility] US ORDERABLES documented in this encounter Visit Diagnoses Diagnosis Drug dependence affecting in s econd trimester documented in this encounter Care Teams Launch Commander Harbor Police Relationship Specialty Start Date End Date Clinic, [facility] PCP - General 07/14/16 12/06/[address] [place], [place] [phone] documented as of this encounter
--- OUTSIDE RECORDS SUMMARY | 2021-12-14 16:25 | XMS_ITS | Encounter Summary ---
:1980 Author Organization [place] Address [facility] [place] [address] Care Team Providers Name Role Phone Clinic, [facility] Primary Care Provide r Reason for Visit Reason Comments Rule Out Labor Encounter Details Date Type Department Care Team Description 12/01/2016 Hospital Encounter [facility], Annalisa [facility] Birthplace MD Julian [address] [facility] [employer] [phone] [facility] [address] [place], [place] [phone] (Wo rk) Social History Tobacco Use Types Packs/Day Years Used Date Smoking Tobacco: Every Day Cigarettes 0.1 10 Smokeless Tobacco: Never Comments: 5 cigarettes a day Alcohol Use Standard Drinks/Week Comments Yes 0 (1 standard drink = 0.6 oz pure Stoppe d after found out alcohol) Sex Assigned at Date Recorded Female 01/14/2020 10:57 AM EMT I/99 documented as of this encounter Last Filed [...] snacks. Activity: Call your doctor or nurse computer aided design designer if your baby is moving less than [...] 12:48 AM CDT Data: Patient presented to [facility] at 0048. Reason for maternal/ assessment [...] Visit Wound Care Luis Camara DPM [address] [place] [address] (Reinaldo rk) 01/21/2022 PRE VISIT Gastroenterology Landon Warren, *-*WANDAIN G RECORDS*-* MD Luis Fernando [address] [place] [address] (Wo rk) 01/21/2022 Office Visit Gastroenterology Juanis Levi [address] [place] [address] Luis Fernando Miles MD [address] [place] [address] documented as of this encounter Visit Diagnoses Not on filedocumented in this encounter Care Teams Territory Representative Relationship Specialty Start Date End Date Clinic, [facility] PCP - General 07/14/16 12/06/[address] [place] [address] documented as of this encounter
--- OUTSIDE RECORDS SUMMARY | 2021-12-14 16:25 | XMS_ITS | Encounter Summary ---
:1980 Author Organization [place] Address [address] [facility] [place] [address] Care Team Providers Name Role Phone Clinic, [facility] Primary Care Provide r Reason for Referral Diagnostic Procedure Outpatient - Closed Specialty Diagnoses / Procedures Referred By Contact Refer red To Contact Diagnoses Chronic hepatitis C without hepatic coma (H) Supervision of high-risk , second trimester Nella Robledo CNM [address] [place], [place] [address] Referral ID Status Reason Start Date Expiration Date Visits Requ ested Visits Authorized [id number] Closed 10/15/2016 10/15/2017 1 1 Encounter Details Date Type Department Care Team Description 10/15/2016 Orders Only [facility] Bridget Robledo n of high-risk , second trimester (Primary Dx); [facility] Nella Wesley CNM Chronic hepatitis C without hepatic coma (H) [place] [address] [facility] Professional [address] [address] [facility] [address] (Work) [place], [place] [phone] [address] (Fax) [phone] Social History Tobacco Use Types Packs/Day Years Used Date Smoking Tobacco: Every Day Cigarettes 0.1 10 Smokeless Tobacco: Never Comments: 5 cigarettes a day Alcohol Use Standard Drinks/Week Comments Yes 0 (1 standard drink = 0.6 oz pure Stoppe d after found out alcohol) Sex Assigned at Date Recorded Female 01/14/2020 10:57 AM OAK TANNER documented as of this encounter Plan of Treatment Upcoming Encounters Date Type Specialty Care Team Description 12/20/2021 Office Visit Wound Care Luis Camara, CALVIN [address] [place], [place] [phone] (Wo rk) 01/21/2022 PRE VISIT Gastroenterology Landon Warren, *-*HEATHER Barriga RECORDS*-* MD Luis Fernando [address] [place] [address] [phone] (Wo rk) 01/21/2022 Office Visit Gastroenterology Juanis Levi [address] [place] [phone] Luis Fernando Miles MD [address] [place] [phone] Scheduled Referrals Name Type Priority Associated Diagnoses [facility] Referral Routine Chronic hepati tis C Ordered: 10/15/2016 CONSULT ONLY without hepatic coma (H) Supervision of high-risk , second trimester documented as of this encounter Visit Diagnoses Diagnosis Supervision of high-risk , seco nd trimester - Primary Chronic hepatitis C without hepatic coma (H) documented in this encounter Care Teams Generator Switchboard Operator Relationship Specialty Start Date End Date Clinic, [facility] PCP - General 07/14/16 12/06/[address] [place] [address] documented as of this encounter
--- OUTSIDE RECORDS SUMMARY | 2021-12-14 16:25 | XMS_ITS | Encounter Summary ---
:1980 Author Organization [place] Address [address] [facility] [place] [address] Care Team Providers Name Role Phone Clinic, [facility] Primary Care Provide r Encounter Details Date Type Department Care Team Description 11/30/2016 Telephone [facility] Sa blank Olivares MD Birthplace [address] [facility] [address] [place] [address] [place] [phone] Social History Tobacco Use Types Packs/Day Years Used Date Smoking Tobacco: Every Day Cigarettes 0.1 10 Smokeless Tobacco: Never Comments: 5 cigarettes a day Alcohol Use Standard Drinks/Week Comments Yes 0 (1 standard drink = 0.6 oz pure Stoppe d after found out alcohol) Sex Assigned at Date Recorded Female 01/14/2020 10:57 AM KISS SETTER HAND documented as of this encounter Miscellaneous [...] process of getting transportation. Kayla Olivares MD WINCH DRIVER Resident, PGY-3 11/30/2016 11:39 PM documented in this encounter Plan of Treatment Upcoming Encounters Date Type Specialty Care Team Description 12/20/2021 Office Visit Wound Care Ho[place] Luis Lex, [place]VIN [address] [place], [place] [phone] (Wo rk) 01/21/2022 PRE VISIT Gastroenterology Landon Warren, *-*INCOMIN G RECORDS*-* MD Luis Fernando [address] [place] [address] [phone] (Wo rk) 01/21/2022 Office Visit Gastroenterology Juanis Levi [address] [place] [phone] Luis Fernando Miles MD [address] [place] [address] documented as of this encounter Visit Diagnoses Not on filedocumented in this encounter Care Teams Supreme Court Justice Relationship Specialty Start Date End Date Clinic, [facility] PCP - General 07/14/16 12/06/[address] [place] [address] documented as of this encounter
--- OUTSIDE RECORDS SUMMARY | 2021-12-14 16:25 | XMS_ITS | Encounter Summary ---
:1980 Author Organization [place] Address [address] [facility] [address] Care Team Providers Name Role Phone Clinic, [facility] Primary Care Provide r Reason for Visit Reason Comments Ultrasound L2/TV-LLP and h/o uterine ru pture, PTD Encounter Details Date Type Department Care Team Description 10/31/2016 Office Visit [facility] Ilana Patel MD [address] [facility] [address], [place] [phone] Suspected anomaly, antepartum, not applicable or unspecified fetus (Primary Dx); Maternal Italia Galarza DO [address] [facility] [address] [place] [address] Placenta previa, second trimester; Medicine Center H/O delivery, currently , second trimester [place] [address] [place], [place] [address] Social History Tobacco Use Types Packs/Day Years Used Date Smoking Tobacco: Every Day Cigarettes 0.1 10 Smokeless Tobacco: Never Comments: 5 cigarettes a day Alcohol Use Standard Drinks/Week Comments Yes 0 (1 standard drink = 0.6 oz pure Stoppe d after found out alcohol) Sex Assigned at Date Recorded Female 01/14/2020 10:57 AM ELECTRIC SWITCH REPAIRER documented as of this encounter Progress Notes Italia Galarza DO - 10/31/2016 2:00 PM CDT Please see Imaging tab under Chart Review for details of today's US. Italia Galarza DO Maternal- Medicine documented in this encounter Plan of Treatment Upcoming Encounters Date Type Specialty Care Team Description 12/20/2021 Office Visit Wound Care Luis Camara, CALVIN [address] [place], [place] [phone] (Wo rk) 01/21/2022 PRE VISIT Gastroenterology Landon Warren, *-*HEATHER G RECORDS*-* MD Luis Fernando [address] [place] [phone] (Wo rk) 01/21/2022 Office Visit Gastroenterology Juanis Levi [address] [place] [phone] Luis Fernando Miles MD [address] [place] [address] [phone] documented as of this encounter Visit Diagnoses Diagnosis Suspected anomaly, antepartum, not applicable or unspecified fetus - Primary Placenta previa, second trimester H/O delivery, currently , second trimester documented in this encounter Care Teams Documentation Consultant Relationship Specialty Start Date End Date Clinic, [facility] PCP - General 07/14/16 12/06/[address] [place] [address] documented as of this encounter
--- OUTSIDE RECORDS SUMMARY | 2021-12-14 16:25 | XMS_ITS | Encounter Summary ---
:1980 Author Organization [place] Address [address] [facility] [place] [address] Care Team Providers Name Role Phone Clinic, [facility] Primary Care Provide r Encounter Details Date Type Department Care Team Description 09/17/2016 Orders Only [facility] Anabelle Thomas High -risk , Maternal GENARO [facility] Medicine Center (Primary Dx) [place] [address] [place], [place] [address] Social History Tobacco Use Types Packs/Day Years Used Date Smoking Tobacco: Every Day Cigarettes 0.1 10 Smokeless Tobacco: Never Comments: 5 cigarettes a day Alcohol Use Standard Drinks/Week Comments Yes 0 (1 standard drink = 0.6 oz pure Stoppe d after found out alcohol) Sex Assigned at Date Recorded Female 01/14/2020 10:57 AM TANK PROCESSOR documented as of this encounter Plan of Treatment Upcoming Encounters Date Type Specialty Care Team Description 12/20/2021 Office Visit Wound Care Luis Camara, [place] [address] [place], [place] [phone] (Wo rk) 01/21/2022 PRE VISIT Gastroenterology Landon Warren, *-*HEATHER G RECORDS*-* MD Luis Fernando [address] [facility] [place], [place] [address] (Wo rk) 01/21/2022 Office Visit Gastroenterology Amita, Juanis M [address] [place] [phone] Luis Fernando Miles MD [address] [facility] [place] [address] documented as of this encounter Visit Diagnoses Diagnosis High-risk , first trimester - P rimary documented in this encounter Care Teams Mirror Framer Relationship Specialty Start Date End Date Clinic, [facility] PCP - General 07/14/16 12/06/[address] [place] [address] documented as of this encounter
--- OUTSIDE RECORDS SUMMARY | 2021-12-14 16:25 | XMS_ITS | Encounter Summary ---
:1980 Author Organization [place] Address [address] [facility] [place] [address] Care Team Providers Name Role Phone Clinic, [facility] Primary Care Provide r Reason for Visit Reason Onset Date Comments Erroneous encounter-disregard 10/07/2016 Encounter Details Date Type Department Care Team Description 10/07/2016 Office Visit [facility] Edgar Alfredo ERRONEOUS Clinic Ashly Gauthier MD ENCOUNTER--DISREGARD [address] [place] (Primary Dx) [address] [place] [address] Social History Tobacco Use Types Packs/Day Years Used Date Smoking Tobacco: Every Day Cigarettes 0.1 10 Smokeless Tobacco: Never Comments: 5 cigarettes a day Alcohol Use Standard Drinks/Week Comments Yes 0 (1 standard drink = 0.6 oz pure Stoppe d after found out alcohol) Sex Assigned at Date Recorded Female 01/14/2020 10:57 AM ELECTRIC OPERATOR documented as of this encounter Progress Notes Edgar Alfredo MD - 10/07/2016 11:45 AM CDT This encounter was opened in error. Please disregard. documented in this encounter Plan of Treatment Upcoming Encounters Date Type Specialty Care Team Description 12/20/2021 Office Visit Wound Care Luis Camara, CALVIN [address] [place], [place] [phone] (Wo rk) 01/21/2022 PRE VISIT Gastroenterology Landon Warren, *-*WANDAIN G RECORDS*-* MD Luis Fernando [address] [phone] (Wo rk) 01/21/2022 Office Visit Gastroenterology Juanis Levi [address] [place] [phone] Luis Fernando Miles MD [address] [address] documented as of this encounter Visit Diagnoses Diagnosis ERRONEOUS ENCOUNTER--DISREGARD - Primary documented in this encounter Care Teams Industrial Chemist Relationship Specialty Start Date End Date Clinic, [facility] PCP - General 07/14/16 12/06/[address] [place] [address] documented as of this encounter
--- OUTSIDE RECORDS SUMMARY | 2021-12-14 16:26 | XMS_ITS | Encounter Summary ---
:1980 Author Organization [place] Address [address] [place] [address] Care Team Providers Name Role Phone [facility] Primary Care Provide r Luis Fernando Magana Primary Care Provider [facility] Primary Care Provide r Tatyana Haas CUSTOMER EXPERIENCE ANALYST WINDOW REPAIRER Unavailable [phone] Stephani Pina CUSTOMER EXPERIENCE ANALYST WINDOW REPAIRER Unavailable [phone] Tatyana Haas CUSTOMER EXPERIENCE ANALYST WINDOW REPAIRER Unavailable [phone] Stephani Pina CUSTOMER EXPERIENCE ANALYST WINDOW REPAIRER Unavailable [phone] Juanis Levi Primary Care Provider Elsa Yeh RN Unavailable Unavailable Rogelio Treadwell MD Unavailable [phone] Luis Camara DPM Unavailable [phone] Camryn Christina MD Unavailable Sintia Lange PA-C Unavailable Luis Fernando Miles MD Unavailable [phone] Reason for Referral - Closed Specialty Diagnoses / Procedures Referred By Contact Refer red To Contact Diagnoses related condition, unspecified trimester Nidia Vincent [facility] [address] [place] [address] Referral ID Status Reason Start Date Expiration Date Visits Requ ested Visits Authorized [id number] Closed 07/17/2016 07/17/2017 1 1 Encounter Details Date Type Department Care Team Description 07/17/2016 [facility] Only [facility] Andreishmael Apri l related Maternal [facility] condition, un specified Medicine Center MEDICAL trimester (Primary Dx) [place] [address] [place], [place] [address] [address] [place], [place] [phone] [address] (Work) [phone] Social History Tobacco Use Types Packs/Day Years Used Date Smoking Tobacco: Every Day Cigarettes 0.1 10 Smokeless Tobacco: Never Comments: 5 cigarettes a day Alcohol Use Standard Drinks/Week Comments No 0 (1 standard drink = 0.6 oz pure alcoho l) Sex Assigned at Date Recorded Female 01/14/2020 10:57 AM CHEMISTRY QUALITY CONTROL TECHNICIAN documented as of this encounter Plan of Treatment Upcoming Encounters Date Type Specialty Care Team Description 12/20/2021 Office Visit Wound Care Luis Camara, [place] [address] [place], [place] [address]385 (Wo rk) 01/21/2022 PRE VISIT Gastroenterology Landon Warren, *-*INCOMIN G RECORDS*-* MD Luis Fernando [address] [place] [phone] (Wo rk) 01/21/2022 Office Visit Gastroenterology Juanis Levi [address] [place] [phone] Luis Fernando Miles MD [address] [place] [phone] Scheduled Referrals Name Type Priority Associated Diagnoses [...] documented as of this encounter Care Teams Aerial Photogrammetrist Relationship Specialty Start Date End Date [facility], [facility] PCP - General 07/14/[address] [address] Luis Fernando Magana PCP - General Family Practice 12/07/16 01/19/[address] [address] [facility] PCP - General 01/20/[address] [address] Juanis Levi PCP - General Addiction Medicine 06/29/[address] [place] [phone] Tatyana Haas, Assigned PCP 08/02/18 01/29/20 CUSTOMER EXPERIENCE ANALYST WINDOW REPAIRER [facility] [address] [facility] [address] [place] [address] Stephani Pina, Assigned PCP 01/30/20 12/30/20 CUSTOMER EXPERIENCE ANALYST WINDOW REPAIRER [address] [facility] [address] [place] [address] Tatyana Haas, Assigned PCP 12/31/20 02/24/21 CUSTOMER EXPERIENCE ANALYST WINDOW REPAIRER [facility] [address] [facility] [address] [place] [address] Stephani Pina, Assigned PCP 02/25/21 CUSTOMER EXPERIENCE ANALYST WINDOW REPAIRER [address] [place] [address] Elsa Yeh, Registered Nurse Infectious Diseases 07/25/21 Rogelio Wilson Assigned Musculoskeletal 08/04/21 MD August Provider [address] [place], [place] 2144[address] Luis Camara MD Podiatry 08/16/21 [place] Burnett [address] [place], [place] [phone] Camryn Christina Assigned Surgical 09/01/21 09/07/21 MD Lexie Provider [address] [facility] [address] [place], [place] [address] Sintia Lange PA-C Assigned Surgical 09/08/21 909 [facility] 4TH Provider FLOOR [place], [place] [phone] Landon Warren MD Gastroenterology 11/21/21 MD Luis Fernando [address] [facility] [address] [place], [place] [address] documented as of this encounter
--- OUTSIDE RECORDS SUMMARY | 2021-12-14 16:26 | XMS_ITS | Encounter Summary ---
:1980 Author Organization [place] Address [address] [facility] [address] Care Team Providers Name Role Phone Clinic, [facility] Primary Care Provide r Encounter Details Date Type Department Care Team Description 07/14/2016 Telephone [facility] Nurse Jackeline Serrano, Advisors RN [address] [place] [address] Social History Tobacco Use Types Packs/Day Years Used Date Smoking Tobacco: Every Day Cigarettes 0.1 10 Smokeless Tobacco: Never Comments: 5 cigarettes a day Alcohol Use Standard Drinks/Week Comments No 0 (1 standard drink = 0.6 oz pure alcoho l) Sex Assigned at Date Recorded Female 01/14/2020 10:57 AM RESIDENT CARE MANAGER documented as of this encounter Miscellaneous [...] Visit Wound Care Luis Camara DPM [address] [place] [address] (Wo rk) 01/21/2022 PRE VISIT Gastroenterology Landon Warren, *-*WANDAIN G RECORDS*-* MD Luis Fernando [address] [address] (Wo rk) 01/21/2022 Office Visit Gastroenterology Juanis Levi [address] [place] [address] Luis Fernando Miles MD [address] [facility] [address] [place], [place] [address] documented as of this encounter Visit Diagnoses Not on filedocumented in this encounter Care Teams Environmental Research Scientist Relationship Specialty Start Date End Date Clinic, [facility] PCP - General 07/14/16 12/06/[address] [place] [address] documented as of this encounter
--- OUTSIDE RECORDS SUMMARY | 2021-12-14 16:26 | XMS_ITS | Encounter Summary ---
:1980 Author Organization [place] Address [address] [place] [address] Care Team Providers Name Role Phone Clinic, [facility] Primary Care Provide r Reason for Visit - Closed Specialty Diagnoses / Procedures Referred By Contact Refer red To Contact Diagnoses Supervision of high-risk , first trimester Ur Maternal Med [address] [place], [place] [address] Referral ID Status Reason Start Date Expiration Date Visits Requ ested Visits Authorized [id number] Closed 08/22/2016 08/22/2017 1 1 Encounter Details Date Type Department Care Team Description 08/22/2016 Office Visit [facility] Ilana Patel MD [address] [address] Canceled (Patient) Maternal Medicine Italia Galarza DO [address] [facility] [address] [place] [address] [facility] [address] [place], [place] [address] Social History Tobacco Use Types Packs/Day Years Used Date Smoking Tobacco: Every Day Cigarettes 0.1 10 Smokeless Tobacco: Never Comments: 5 cigarettes a day Alcohol Use Standard Drinks/Week Comments Yes 0 (1 standard drink = 0.6 oz pure Stoppe d after found out alcohol) Sex Assigned at Date Recorded Female 01/14/2020 10:57 AM FINANCIAL INSTITUTION MANAGER documented as of this encounter Plan of Treatment Upcoming Encounters Date Type Specialty Care Team Description 12/20/2021 Office Visit Wound Care Luis Camara, [place] [address] [place] [address] (Wo rk) 01/21/2022 PRE VISIT Gastroenterology Landon Warren, *-*WANDAIN G RECORDS*-* MD Luis Fernando [address] [place] [address] (Wo rk) 01/21/2022 Office Visit Gastroenterology Juanis Levi [address] [place] [phone] Luis Fernando Miles MD [address] [place] [address] documented as of this encounter Visit Diagnoses Not on filedocumented in this encounter Care Teams Electric Wirer Relationship Specialty Start Date End Date Clinic, [facility] PCP - General 07/14/16 12/06/[address] [place] [address] documented as of this encounter
--- OUTSIDE RECORDS SUMMARY | 2021-12-14 16:26 | XMS_ITS | Encounter Summary ---
:1980 Author Organization [place] Address [facility] [place] [address] Care Team Providers Name Role Phone Clinic, [facility] Primary Care Provide r Reason for Visit Reason Comments Threatened Miscarriage Encounter Details Date Type Department Care Team Description 07/14/2016 Emergency [facility] Santosh Spears, Twin gestation in first trimester, unspecified multiple gestation type; [facility] Emergency Dep t Threatened miscarriage in early pregnanc y [address] [facility] [place] [address] [address] [phone] [facility] [address] [place] [address] (Wo rk) Social History Tobacco Use Types Packs/Day Years Used Date Smoking Tobacco: Every Day Cigarettes 0.1 10 Smokeless Tobacco: Never Comments: 5 cigarettes a day Alcohol Use Standard Drinks/Week Comments No 0 (1 standard drink = 0.6 oz pure alcoho l) Sex Assigned at Date Recorded Female 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 Thanks for visiting [facility] Emergency Room. Santosh Spears MD [...] by 30 tablet 6 12/10/2012 08/30/19 17 Tofpjntc-Gup-Hc-FA mouth daily ( VITAMINS) 0.8 MG TABSIndications: [...] smoker, 0.10 PPD. Alcohol Use: Yes PCP: [facility] Review of Systems Constitutional: Positive for fatigue. [...] understanding of the findings. Laboratory: HCG Quantitative: 17479 (H) CBC: WBC 7.9, HGB 12.6, PLT [...] and the provider's statements to me. 07/14/2016 [facility] EMERGENCY DEPARTMENT Santosh Spears MD 07/14/16 1206 documented in this encounter Plan of Treatment Upcoming Encounters Date Type Specialty Care Team Description 12/20/2021 Office Visit Wound Care Luis Camara, [place] [address] [place] [address] (Wo rk) 01/21/2022 PRE VISIT Gastroenterology Landon Warren, *-*INCOMIN G RECORDS*-* MD Luis Fernando [address] [place] [address] (Wo rk) 01/21/2022 Office Visit Gastroenterology Juanis Levi [address] [place] [address] Luis Fernando Miles MD [address] [place] [address] documented as of this encounter Procedures [...] a mean sac diameter of 1.4 cm. Wenden-rump length is 0.5 cm this cor responds to a gestational age of 6 weeks 2 days. Estimated date of del elmira is 03/07/2017. Yolk sac is identified. Heart rate is 1 26 bpm. Gestational sac B measures mean sac diam eter 0.8 cm. This corresponds to an age of 5 weeks 3 days. Wenden-rump length is 0.3 cm corresponding to a [...] a mean sac diameter of 1.4 cm. Wenden-rump length is 0.5 cm this cor responds to a gestational age of 6 weeks 2 days. Estimated date of del elmira is 03/07/2017. Yolk sac is identified. Heart rate is 1 26 bpm. Gestational sac B measures mean sac diam eter 0.8 cm. This corresponds to an age of 5 weeks 3 days. Wenden-rump length is 0.3 cm corresponding to a [...] Immune Globulin Study (07/14/2016 7:46 AM CDT) [facility] Bettery Method Time Signature ABO B [facility] RH(D) Pos [facility] Blood Canceled, [place] Screen Test [facility] Blood Bank Not suitable for Rh Immune Globulin [facility] Comment Patien is Rh Positive [facility] Amount of RHIG Not suitable [facility] Required for Rh [facility] Globulin Specimen Anatomical Collection Method Collection Time Receive d Time (Source) Location / / Volume Laterality 07/14/2016 7:46 AM 7 7:58 CDT AM CDT Santosh Spears MD LAB - BLOOD BANK TEST ORDER Performing Organization Address City/State/ZIP Code Phon e Number M [place] [address] [address] [place], [place] [address] [facility] [address] [place], [place] [address]33 [facility] [phone] ABO/Rh type and screen (07/14/2016 7:46 AM CDT) [facility] Bettery Method Time Signature ABO B [facility] RH(D) Pos [facility] Antibody Neg [place] Screen [facility] Test Valid [place] [facility] Only At [facility] Specimen 07/17/2016 [facility] Specimen Anatomical Collection Method Collection Time Receive d Time (Source) Location / / Volume Laterality Blood specimen 07/14/2016 7:46 AM 017 8:01 (specimen) CDT AM CDT Santosh Spears MD LAB - BLOOD BANK TEST ORDER Performing Organization Address City/[facility]/ZIP [facility] Phon e Number M [facility] [address] [place], [place] [address] [facility] [address] [place], [place] [address], [facility] [phone] Rho (D) immune globulin (RhoGam) Lab Study (07/14/2016 7:36 AM CDT) [facility] Method Time Signature Rhogam Order Order received [place] See Rhogam Study/[facility] Specimen Anatomical Collection Method Collection Time Receive d Time (Source) Location / / Volume Laterality 07/14/2016 7:36 AM 7 7:45 CDT AM CDT Santosh Spears MD LAB - BLOOD BANK PRODUCT ORD ER Performing Organization Address [facility] Phon e Number M [facility] [address] [place], [place] [address] [facility] [address] [place], [place] [address], [facility] [phone] (ABNORMAL) HCG QUANTitative (07/14/2016 5:28 AM CDT) [facility] Method Time Signature HCG Quantitative 19,512 0 - 5 [place] Serum (H) IU/L [facility] Specimen Anatomical Collection Method Collection Time Receive d Time (Source) Location / / Volume Laterality Blood specimen 07/14/2016 5:28 AM 017 7:59 (specimen) CDT AM CDT Santosh Spears MD LAB - BLOOD ORDERABLES Performing Organization Address [facility]/ZIP [facility] Phon e Number M [facility] [address] [place], [place] [address] [facility] [address] [place], [place] [address], [facility] [phone] CBC with platelets differential (07/14/2016 5:28 AM CDT) [facility] gist Method Time Signature WBC 7.9 4.0 - [place] 11.[address] RBC Count 4.00 3.8 - 5.2 [place] 10e12L [facility] Hemoglobin 12.6 11.7 - [place] 15.7 g/dL [facility] Hematocrit 37.4 35.0 - [place] 47.0 % [facility] MCV 94 78 - 100 [facility] MCH 31.5 26.5 - [place] 33.0 pg [facility] MCHC 33.7 31.5 - [place] 36.5 g/dL [facility] RDW 13.3 10.0 - [place] 15.0 % [facility] Platelet Count 230 150 - [address] Diff Method Automated [facility] % Neutrophils 42.2 % [facility] % Lymphocytes 48.0 % [facility] % Monocytes 6.4 % [facility] % Eosinophils 2.5 % [facility] % Basophils 0.6 % [facility] % Immature 0.3 % [place] Granulocytes [facility] Nucleated RBCs 0 0 /100 [facility] Absolute 3.3 1.6 - 8.3 [place] Neutrophil [address] [place] [address] Absolute 3.8 0.8 - 5.3 [place] Lymphocytes [address] [place] [address] Absolute 0.5 0.0 - 1.3 [place] Monocytes [address] [place] [address] Absolute 0.2 0.0 - 0.7 [place] Eosinophils [address] [place] [address] Absolute 0.1 0.0 - 0.2 [place] Basophils [address] [place] [address] Abs Immature 0.0 0 - 0.4 [place] Granulocytes [address] [place] [address] Absolute 0.0 [place] Nucleated RBC [facility] Specimen Anatomical Collection Method Collection Time Receive d Time (Source) Location / / Volume Laterality Blood specimen 07/14/2016 5:28 AM 017 7:59 (specimen) CDT AM CDT Santosh Spears MD LAB - BLOOD ORDERABLES Performing Organization Address City/State/ZIP Code Phon e Number M [facility] [address] [place], [place] [address] [facility] [address] [place], [place] [address] [place] [address] documented in this encounter Visit Diagnoses Diagnosis [...] meds documented in this encounter Care Teams Motorcycle Designer Relationship Specialty Start Date End Date Clinic, [facility] PCP - General 07/14/16 12/06/[address] [place] [address] documented as of this encounter
--- OUTSIDE RECORDS SUMMARY | 2021-12-14 16:26 | XMS_ITS | Encounter Summary ---
:1980 Author Organization [place] Address [facility] [place] [address] Care Team Providers Name Role Phone Clinic, Formerly [facility] Primary Care Provide r Reason for Visit Reason Comments Vaginal Bleeding Encounter Details Date Type Department Care Team Description 07/28/2016 Emergency [facility] Christopher Ji ed miscarriage in early ; [facility] Emergency Dep t MD Bryon Spontaneous miscarriage [address] 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 ??? You should [...] contain Tylenol?? (acetaminophen), including Vicodin??, Tylenol #3??, Speonk??, Lortab??, and Percocet??. 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 I performed an exam of the patient as documented above. The above workup was undertaken. 1105: I performed a pelvic exam. 1233: Discussed the patient with Dr. Sanchez from [facility]. 1355: I rechecked the patient [...] observations and the provider's statements to me. [facility] EMERGENCY DEPARTMENT Christopher Ji MD 08/03/162006 documented in this encounter Plan of Treatment Upcoming Encounters Date Type Specialty Care Team Description 12/20/2021 Office Visit Wound Care Luis Camara, DPM [address] [place] [address] (Wo rk) 01/21/2022 PRE VISIT Gastroenterology Landon Warren, *-*INCOMIN G RECORDS*-* MD Luis Fernando [address] [address] (Wo rk) 01/21/2022 Office Visit Gastroenterology Juanis Levi [address] [place] [phone] Luis Fernando Miles MD [address] [place] [phone] documented as of this encounter Procedures Procedure [...] Immune Globulin Study (07/28/2016 10:25 AM CDT) [facility] Method Time Signature ABO B [facility] RH(D) Pos [facility] Blood Canceled, [place] Screen Test [facility] Blood Bank Not suitable for Rh Immune Globulin [place] Comment Patient is Rh positive [facility] Amount of RHIG Not suitable [place] Required for Rh [facility] Globulin Specimen Anatomical Collection Method Collection Time Receive d Time (Source) Location / / Volume Laterality 07/28/2016 10:25 07/28/2016 AM CDT 10:39 AM CDT Christopher Ji MD LAB - BLOOD BANK TEST ORDER Performing Organization Address City/State/ZIP Code Phon e Number M [facility] [address] [address] [facility] [address] [address], [facility] [phone] Rh type (07/28/2016 10:25 AM CDT) Analysis Performed At Patho logist Time Signature ABO B [facility] RH(D) Pos [facility] Specimen 07/31/2016 [facility] Specimen Anatomical Collection Method Collection Time Receive d Time (Source) Location / / Volume Laterality Blood specimen 07/28/2016 10:25 7 (specimen) AM CDT 10:31 AM CDT Christopher Ji MD LAB - BLOOD BANK TEST ORDER Performing Organization Address City/[facility]/ZIP [facility] Phon e Number M [facility] [address] [place], [place] [address] [facility] [address] [place], [place] [address], [facility] [phone] (ABNORMAL) HCG QUANTitative (07/28/2016 10:25 AM CDT) [facility] gist Method Time Signature HCG Quantitative 77,252 0 - 5 [place] Serum (H) IU/L [facility] Comment: Specimen run with a dilution Specimen Anatomical Collection Method Collection Time Receive d Time (Source) Location / / Volume Laterality Blood specimen 07/28/2016 10:25 7 (specimen) AM CDT 10:30 AM CDT Christopher Ji MD LAB - BLOOD ORDERABLES Performing Organization Address City/[facility]/ZIP [facility] Phon e Number M [facility] [address] [place], [place] [address] [facility] [address] [place], [place] [address] 7, [facility] [phone] (ABNORMAL) CBC with platelets differential (07/28/2016 10:25 AM CDT) [facility] gist Method Time Signature WBC 7.1 4.0 - [place] 11.0 [facility] 10e9/L [facility] RBC Count 3.77 (L) 3.8 - 5.2 [place] 10e12/L [facility] Hemoglobin 11.7 11.7 - [place] 15.7 g/dL [facility] Hematocrit 35.6 35.0 - [place] 47.0 % [facility] MCV 94 78 - 100 [place] fl [facility] MCH 31.0 26.5 - [place] 33.0 pg [facility] MCHC 32.9 31.5 - [place] 36.5 g/dL [facility] RDW 12.9 10.0 - [place] 15.0 % [facility] Platelet Count 195 150 - 450 [place] [id number] [place] [address] Diff Method Automated [place] Method [facility] % Neutrophils 60.2 % [facility] % Lymphocytes 31.4 % [facility] % Monocytes 4.7 % [facility] % Eosinophils 3.1 % [facility] % Basophils 0.3 % [facility] % Immature 0.3 % [place] Granulocytes [facility] Nucleated RBCs 0 0 /100 [facility] Absolute 4.3 1.6 - 8.3 [place] Neutrophil [address] [place] [address] Absolute 2.2 0.8 - 5.3 [place] Lymphocytes [address] [place] [address] Absolute 0.3 0.0 - 1.3 [place] Monocytes [address] [place] [address] Absolute 0.2 0.0 - 0.7 [place] Eosinophils [address] [place] [address] Absolute 0.0 0.0 - 0.2 [place] Basophils [address] [place] [address] Abs Immature 0.0 0 - 0.4 [place] Granulocytes [address] [place] [address] Absolute 0.0 [place] Nucleated RBC [facility] Specimen Anatomical Collection Method Collection Time Receive d Time (Source) Location / / Volume Laterality Blood specimen 07/28/2016 10:25 7 (specimen) AM CDT 10:30 AM CDT Christopher Ji MD LAB - BLOOD ORDERABLES Performing Organization Address City/State/ZIP Code Phon e Number M [facility] [address] [place], [place] [address] [facility] [address] [place], [place] [address] [place] [address] Rho (D) immune globulin (RhoGam) Lab Study (07/28/2016 10:24 AM CDT) [facility] Method Time Signature Rhogam Order Order received [place] See Rhogam Study/[facility] Specimen Anatomical Collection Method Collection Time Receive d Time (Source) Location / / Volume Laterality 07/28/2016 10:24 07/28/2016 AM CDT 10:25 AM CDT Christopher Ji MD LAB - BLOOD BANK PRODUCT ORD ER Performing Organization Address City/State/ZIP Code Phon e Number [address] [place] [address] [address] [place], [place] [address] [facility] [address] [place], [place] [address] [phone] documented in this encounter Visit Diagnoses Diagnosis [...] order. documented in this encounter Care Teams Monorail Car Operator Relationship Specialty Start Date End Date Clinic, [facility] PCP - General 07/14/16 12/06/[address] [place] [address] documented as of this encounter
--- OUTSIDE RECORDS SUMMARY | 2021-12-14 16:26 | XMS_ITS | Encounter Summary ---
:1980 Author Organization [place] Address [address] [facility] [place] [address] Care Team Providers Name Role Phone Clinic, Formerly [facility] Primary Care Provide r Reason for Visit Reason Onset Date Comments Abnormal Uterine Bleeding 08/29/2016 13 we eks today. Encounter Details Date Type Department Care Team Description 08/29/2016 Telephone [facility] Violeta Fagan Abnormal Uterine [facility] FARZANA Bailey CNCamryn Bleeding ( [address] [place] [address] weeks today.) [address] [place], [place] [address] [address] [place], [place] [phone] (Work) [phone] Social History Tobacco Use Types Packs/Day Years Used Date Smoking Tobacco: Every Day Cigarettes 0.1 10 Smokeless Tobacco: Never Comments: 5 cigarettes a day Alcohol Use Standard Drinks/Week Comments Yes 0 (1 standard drink = 0.6 oz pure Stoppe d after found out alcohol) Sex Assigned at Date Recorded Female 01/14/2020 10:57 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 [facility]. Tremayne Gilmore RN Telephone Encounter - Tremayne Price RN - 08/29/2016 1:41 PM CDT Pt called back to get scheduled for an US. Pt states she is bleeding very heavily, she states she is wear adult depends and had to change them 5 minutes apart. Pt advised to come into the [facility] ED with that heavy of bleeding. Pt is other line with [facility] trying to arrange a ride to the Hospital. She will call me back if not able to get ride. Tremayne Gilmore RN Telephone Encounter - Thais Morris LPN - 08/29/2016 1:35 PM CDT Phone call from Rn at [facility] patient would like to be evaluated [...] Phone Fax E-Mail Primary [facility] [address] [place], [place] [address] [address] ?? with Twins but at 8 weeks documented in this encounter Plan of Treatment Upcoming Encounters Date Type Specialty Care Team Description 12/20/2021 Office Visit Wound Care Luis Camara, [place] [address] [place], [place] [address] (Wo rk) 01/21/2022 PRE VISIT Gastroenterology Landon Warren, *-*HEATHER G RECORDS*-* MD Luis Fernando [address] [phone] (Wo rk) 01/21/2022 Office Visit Gastroenterology Juanis Levi [address] [place] [phone] Luis Fernando Miles MD [address] [address] documented as of this encounter Visit Diagnoses Diagnosis Vaginal bleeding in patient at less than 20 weeks gestation - Primary documented in this encounter Care Teams Residential Roofer Relationship Specialty Start Date End Date Clinic, [facility] PCP - General 07/14/16 12/06/[address] [place] [address] documented as of this encounter
--- OUTSIDE RECORDS SUMMARY | 2021-12-14 16:26 | XMS_ITS | Encounter Summary ---
:1980 Author Organization [place] Address [address] [facility] [place] [address] Care Team Providers Name Role Phone Clinic, [facility] Primary Care Provide r Reason for Visit Reason Onset Date Comments Prior Auth - Medication 08/15/2016 Subutex 2 mg Encounter Details Date Type Department Care Team Description 08/15/2016 Telephone [facility] Edgar Alfredo Pri or Auth - Medication Clinic Ashly VÁSQUEZ (Subutex 2 mg ) [address] [place] [address] [place] [phone] (Wo rk) Social History Tobacco Use Types Packs/Day Years Used Date Smoking Tobacco: Every Day Cigarettes 0.1 10 Smokeless Tobacco: Never Comments: 5 cigarettes a day Alcohol Use Standard Drinks/Week Comments Yes 0 (1 standard drink = 0.6 oz pure Stoppe d after found out alcohol) Sex Assigned at Date Recorded Female 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 [facility] at [phone]. Staff informed pharmacist regarding the above information and stated he will be working late [facility] [place] and he will run the JENIFFER montesinos. Lupe Lantigua MA Telephone Encounter - Mark Roldan - 08/16/2016 12:49 PM CDT Prior Authorization: APPROVED Approved as of: 08/12/16 thru 08/16/16 Mark Roldan August 16, 2016 at 12:51 PM Telephone Encounter - Sarah Calvert MA - 08/16/2016 8:54 AM CDT Prior Authorization has been submitted via [facility] as urgent request beatty #[id number] Staff will call plan later today at [phone] to follow up Sarah Calvert MA Telephone Encounter - Dora Merchant - 08/16/2016 7:52 AM CDT Covermeds Beatty: [id number] Dora Merchant Churn Driller Helper Telephone Encounter - Mark Roldan - 08/15/2016 12:54 PM CDT Prior Authorization needed on: [place] Medication: Subutex Dose: 2 mg Insurance Name: [place] Insurance Phone: Not listed Insurance Cuff Stitcher placed form in provider's folder. Mark Roldan August 15, 2016 at 12:55 PM documented in this encounter Plan of Treatment Upcoming Encounters Date Type Specialty Care Team Description 12/20/2021 Office Visit Wound Care Luis Camara [place] [address] [place] [address] (Wo rk) 01/21/2022 PRE VISIT Gastroenterology Landon Warren, *-*WANDAIN G RECORDS*-* MD Luis Fernando [address] [facility] [address] [place], [place] [address] (Wo rk) 01/21/2022 Office Visit Gastroenterology Juanis Levi [address] [place] [phone] Luis Fernando Miles MD [address] [address] documented as of this encounter Visit Diagnoses Not on filedocumented in this encounter Care Teams Barrel Burner Relationship Specialty Start Date End Date Clinic, [facility] Medical PCP - General 07/14/16 12/06/[address] [place] [address] documented as of this encounter
--- OUTSIDE RECORDS SUMMARY | 2021-12-14 16:26 | XMS_ITS | Encounter Summary ---
:1980 Author Organization [place] Address Critical access hospital0 [facility] 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 documented as of this encounter Plan of Treatment Upcoming Encounters Date Type Specialty Care Team Description 12/20/2021 Office Visit Wound Care Luis Camara DPM [address] [place], [place] [phone] (Wo rk) 01/21/2022 PRE VISIT Gastroenterology Landon Warren, *-*HEATHER Barriga RECORDS*-* MD Luis Fernando [address] [address] (Wo rk) 01/21/2022 Office Visit Gastroenterology Juanis Levi [address] [place] [phone] Luis Fernando Miles MD [address] [place] [address] [address] [place] [address] documented as of this encounter Visit Diagnoses Not on filedocumented in this encounter Care Teams Yeast Maker Relationship Specialty Start Date End Date Clinic, [facility] PCP - General 07/14/16 12/06/[address] [place] [address] documented as of this encounter
--- OUTSIDE RECORDS SUMMARY | 2021-12-14 16:26 | XMS_ITS | Encounter Summary ---
:1980 Author Organization [place] Address [address] [facility] [place] [address] Care Team Providers Name Role Phone Clinic, [facility] Primary Care Provide r Reason for Visit Reason Onset Date Comments Consult 07/18/2016 triage Encounter Details Date Type Department Care Team Description 07/18/2016 Telephone [facility] Anabelle Thomas ult (triage) Maternal Medicine GENARO [address] [place] [address] [address] [place] [address] Social History Tobacco Use Types Packs/Day Years Used Date Smoking Tobacco: Every Day Cigarettes 0.1 10 Smokeless Tobacco: Never Comments: 5 cigarettes a day Alcohol Use Standard Drinks/Week Comments No 0 (1 standard drink = 0.6 oz pure alcoho l) Sex Assigned at Date Recorded Female 01/14/2020 10:57 AM KNOTTER documented as of this encounter Miscellaneous Notes [...] Wound Care Hoa Luis Lex, DPM [address] [place] [address] (Wo rk) 01/21/2022 PRE VISIT Gastroenterology Landon Warren, *-*WANDAIN G RECORDS*-* MD Luis Fernando 516 [facility] 2[address] [place], [place] [address] (Wo rk) 01/21/2022 Office Visit Gastroenterology Juanis Levi [address] [place] [phone] Luis Fernando Miles MD [address] [address] documented as of this encounter Visit Diagnoses Not on filedocumented in this encounter Care Teams Masonry Contractor Administrator Relationship Specialty Start Date End Date Clinic, [facility] PCP - General 07/14/16 12/06/[address] [place] [address] documented as of this encounter
--- OUTSIDE RECORDS SUMMARY | 2021-12-14 16:26 | XMS_ITS | Encounter Summary ---
:1980 Author Organization [place] Address [address] [facility] [place] [address] Care Team Providers Name Role Phone Clinic, [facility] Primary Care Provide r Reason for Visit Reason Onset Date Comments Establish Care 07/18/2016 care Encounter Details Date Type Department Care Team Description 07/18/2016 [facility] Mark Turner Establi [facility] CHERRY PICKER OPERATOR CNM ( care) [facility] [address] SPECIALISTS [place] [facility] [address] [facility] [address] [place], [place] 3rd Flr,[facility] [address] [address] [place], [place] [phone] [phone] (Work) [phone] Social History Tobacco Use Types Packs/Day Years Used Date Smoking Tobacco: Every Day Cigarettes 0.1 10 Smokeless Tobacco: Never Comments: 5 cigarettes a day Alcohol Use Standard Drinks/Week Comments No 0 (1 standard drink = 0.6 oz pure alcoho l) Sex Assigned at Date Recorded Female 01/14/2020 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 documented as of this encounter [...] Care Luis Camara DPM [address] [place] [address] (Wo rk) 01/21/2022 PRE VISIT Gastroenterology Landon Warren, *-*WANDAIN G RECORDS*-* MD Luis Fernando [address] [place] [address] (Wo rk) 01/21/2022 Office Visit Gastroenterology Juanis Levi [address] [place] [phone] Luis Fernando Miles MD [address] [place] [phone] documented as of this encounter Visit Diagnoses Diagnosis Supervision of high-risk , firs t trimester - Primary documented in this encounter Care Teams Graphite Pan Drier Tender Relationship Specialty Start Date End Date Clinic, [facility] PCP - General 07/14/16 12/06/[address] [place] [address] documented as of this encounter
--- OUTSIDE RECORDS SUMMARY | 2021-12-14 16:26 | XMS_ITS | Encounter Summary ---
:1980 Author Organization [place] Address [address] [facility] [place] [address] Care Team Providers Name Role Phone Clinic, [facility] Primary Care Provide r Reason for Visit Reason Comments Addiction Problem Encounter Details Date Type Department Care Team Description 08/12/2016 Office Visit [facility] Edgar Alfredo Uncomplic ated opioid dependence (H); Clinic Ashly Gauthier MD Major depressive disorder, recurrent epi sode, moderate (H) [address] [place] [address] [place] [phone] Social History Tobacco Use Types Packs/Day Years Used Date Smoking Tobacco: Every Day Cigarettes 0.1 10 Smokeless Tobacco: Never Comments: 5 cigarettes a day Alcohol Use Standard Drinks/Week Comments Yes 0 (1 standard drink = 0.6 oz pure Stoppe d after found out alcohol) Sex Assigned at Date Recorded Female 01/14/2020 10:57 AM SUPERVISOR CHASSIS ASSEMBLY documented as of this encounter Last Filed [...] TWINS; ONE ; OTHER VIABLE GOING TO CLOTH SHRINKING MACHINE OPERATOR HELPER FEELING OK SUBUTEX DOSE OK NO CRAVING, [...] been going to recovery meetings:not at all. [place] [employer] Data Base Reviewed: YES; [...] BREAST SURGERY ABcess drained ??? SECTION ??? PROCESS COORDINATOR SURGERY ??? ORTHOPEDIC SURGERY ??? THORACIC [...] Take 1 tablet by mouth daily ??? Rueyhdcv-Uut-Za-FA ( VITAMINS) 0.8 MG TABS Take 1 [...] Panel 13 Result Value Ref Range Cannabinoids (04-rvg-7-xmvlwhj-6-EBT) NDET ng/mL Not Detected Cutoff for a [...] be used for medical purposes only. Order [id number] for confirmation or individual confirmation tests to [employer]. 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 FOR ASSISTANT PROFESSOR OF DIETETICS USE OF HIGH RISK MEDICATION High Risk [...] visit in 2 MONTHS Edgar Alfredo MD [facility] documented in this encounter Plan of Treatment Upcoming Encounters Date Type Specialty Care Team Description 12/20/2021 Office Visit Wound Care Luis Camara, [place] [address] [place] [address] (Wo rk) 01/21/2022 PRE VISIT Gastroenterology Landon Warren, *-*INCOMIN G RECORDS*-* MD Luis Fernando [address] [facility] [place], [place] [address] (Wo rk) 01/21/2022 Office Visit Gastroenterology Juanis Levi [address] [place] [address] Luis Fernando Miles MD [address] [facility] [place], [place] [address] documented as of this encounter Procedures Procedure [...] At Signature Cannabinoids Not Detected NDET LAB (72-rnb-0-carboxy- Cutoff for a negative cannabinoid is 50 [...] be used for medical purposes only. Order [id number] for confirmation or individual confirmation tests to [facility]. (A) Specimen Anatomical Collection Method Collection Time Receive d Time (Source) Location / / Volume Laterality Urine specimen 08/12/2016 2:28 PM 017 2:29 (specimen) CDT PM CDT Edgar Alfredo MD LAB - URINE ORDERABLES Performing Organization Address City/State/ZIP [place] [address] [facility] [address] [place] [address] [address] LAB documented in this encounter Visit Diagnoses Diagnosis Uncomplicated opioid dependence (H) Opioid type dependence, unspecified Major depressive disorder, recurrent epi sode, moderate (H) Major depressive disorder, recurrent epi sode, moderate documented in this encounter Care Teams Geothermal Heat Pump Machinist Relationship Specialty Start Date End Date Clinic, [facility] PCP - General 07/14/16 12/06/16 [facility] [place] [address] documented as of this encounter
--- OUTSIDE RECORDS SUMMARY | 2021-12-14 16:26 | XMS_ITS | Encounter Summary ---
:1980 Author Organization [place] Address [address] [place] [address] Care Team Providers Name Role Phone Clinic, [facility] Primary Care Provide r Reason for Visit Reason Onset Date Comments Appointment 08/12/2016 Encounter Details Date Type Department Care Team Description 08/12/2016 Telephone [facility] Nithya Alfredo MD Appointment [place] [address] [facility] [address] [place], [place] [address] [phone] [place] [phone] Social History Tobacco Use Types Packs/Day Years Used Date Smoking Tobacco: Every Day Cigarettes 0.1 10 Smokeless Tobacco: Never Comments: 5 cigarettes a day Alcohol Use Standard Drinks/Week Comments Yes 0 (1 standard drink = 0.6 oz pure Stoppe d after found out alcohol) Sex Assigned at Date Recorded Female 01/14/2020 10:57 AM 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 YES Call taken on 08/12/2016 at 10:28 AM by Dora Merchant documented in this encounter Plan of Treatment Upcoming Encounters Date Type Specialty Care Team Description 12/20/2021 Office Visit Wound Care Luis Camara, [place] [address] [place], [place] [address] (Wo rk) 01/21/2022 PRE VISIT Gastroenterology Landon Warren, *-*INCOMIN G RECORDS*-* MD Luis Fernando [address] [place] [address] (Wo rk) 01/21/2022 Office Visit Gastroenterology Juanis Levi [address] [place] [phone] Luis Fernando Miles MD [address] [place] [address] documented as of this encounter Visit Diagnoses Not on filedocumented in this encounter Care Teams Die Fitter Relationship Specialty Start Date End Date Clinic, [facility] PCP - General 07/14/16 12/06/[address] [place] [address] documented as of this encounter
--- OUTSIDE RECORDS SUMMARY | 2021-12-14 16:26 | XMS_ITS | Encounter Summary ---
:1980 Author Organization [place] Address [address] [place] [address] Care Team Providers Name Role Phone Clinic, [facility] Primary Care Provide r Reason for Visit Reason Onset Date Comments Prior Auth - Medication 08/12/2016 Subutex Encounter Details Date Type Department Care Team Description 08/12/2016 Telephone [facility] Edgar Alfredo Pri or Auth - Medication Clinic Ashly VÁSQUEZ (Subutex) [address] [place] [address] [place] [phone] (Wo rk) Social History Tobacco Use Types Packs/Day Years Used Date Smoking Tobacco: Every Day Cigarettes 0.1 10 Smokeless Tobacco: Never Comments: 5 cigarettes a day Alcohol Use Standard Drinks/Week Comments Yes 0 (1 standard drink = 0.6 oz pure Stoppe d after found out alcohol) Sex Assigned at Date Recorded Female 01/14/2020 10:57 AM REGISTERED RADIOLOGIC TECHNOLOGIST documented as of this encounter Miscellaneous [...] Authorization needed on: Subutex 2mg Drug NDC: [address]-07 Insurance: [place] [id number] Rx BIN: [id number] Insurance phone #: Pharmacy Pharmacy Phone #: [phone] Pharmacy Fax #: [phone] Please let us know if the PA gets approved or denied or if medication is changed. Thank You, Nicole Borjas, [facility] documented in this encounter Plan of Treatment Upcoming Encounters Date Type Specialty Care Team Description 12/20/2021 Office Visit Wound Care Luis Camara, [place] [address] [place] [address] (Wo rk) 01/21/2022 PRE VISIT Gastroenterology Landon Warren, *-*WANDAIN G RECORDS*-* MD Luis Fernando [address] [place] [address] (Wo rk) 01/21/2022 Office Visit Gastroenterology Juanis Levi [address] [place] [phone] Luis Fernando Miles MD [address] [place] [address] documented as of this encounter Visit Diagnoses Not on filedocumented in this encounter Care Teams Tool Polishing Machine Operator Relationship Specialty Start Date End Date Clinic, [facility] PCP - General 07/14/16 12/06/[address] [place] [address] documented as of this encounter
--- OUTSIDE RECORDS SUMMARY | 2021-12-14 16:26 | XMS_ITS | Encounter Summary ---
:1980 Author Organization [place] Address [address] [place] [address] Care Team Providers Name Role Phone Clinic, [facility] Primary Care Provide r Reason for Visit Reason Onset Date Comments Clinic Care Coordination - Follow-up 08/30/2016 [facility] [place] Encounter Details Date Type Department Care Team Description 08/30/2016 Telephone [facility] Women's Nurse, p [facility] Clinic Care Coordination Clinic [place] - Follow-up ([facility] [place]) [address] [place] Professional [facility]ld[facility] [address],[facility] [address] [place] [address] Social History Tobacco Use Types Packs/Day Years Used Date Smoking Tobacco: Every Day Cigarettes 0.1 10 Smokeless Tobacco: Never Comments: 5 cigarettes a day Alcohol Use Standard Drinks/Week Comments Yes 0 (1 standard drink = 0.6 oz pure Stoppe d after found out alcohol) Sex Assigned at Date Recorded Female 01/14/2020 10:57 AM 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 documented as of this encounter Miscellaneous [...] Visit Wound Care Luis Camara DPM [address] [place], [place] [phone] (Wo rk) 01/21/2022 PRE VISIT Gastroenterology Landon Warren, *-*INCOMIN G RECORDS*-* MD Luis Fernando [address] [address] (Wo rk) 01/21/2022 Office Visit Gastroenterology Juanis Levi [address] [place] [phone] Luis Fernando Miles MD [address] [phone] documented as of this encounter Visit Diagnoses Not on filedocumented in this encounter Care Teams Rn Lactation Consultant Relationship Specialty Start Date End Date Clinic, [facility] PCP - General 07/14/16 12/06/[address] [place] [address] documented as of this encounter
--- OUTSIDE RECORDS SUMMARY | 2021-12-14 16:26 | XMS_ITS | Encounter Summary ---
:1980 Author Organization [place] Address [address] [place] [address] Care Team Providers Name Role Phone [facility] Primary Care Provide r Luis Fernando Magana Primary Care Provider [facility] Primary Care Provide r Tatyana Haas FOOD STYLIST CONVEYOR TENDER Unavailable Stephani Pina FOOD STYLIST CONVEYOR TENDER Unavailable [phone] Tatyana Haas FOOD STYLIST CONVEYOR TENDER Unavailable [phone] Stephani Pina FOOD STYLIST CONVEYOR TENDER Unavailable [phone] Juanis Levi Primary Care Provider Elsa Yeh RN Unavailable Unavailable Rogelio Treadwell MD Unavailable [phone] Luis Camara DPM Unavailable [phone] Camryn Christina MD Unavailable Sintia Lange PA-C Unavailable Luis Fernando Miles MD Unavailable [phone] Reason for Visit Reason Onset Date Comments Appointment 08/06/2016 Encounter Details Date Type Department Care Team Description 08/06/2016 Telephone [facility] Alexia [place] Appointment [place] [address] [place] [facility] [address],Ronnie [address] [place], [place] [phone] Social History Tobacco Use Types Packs/Day Years Used Date Smoking Tobacco: Every Day Cigarettes 0.1 10 Smokeless Tobacco: Never Comments: 5 cigarettes a day Alcohol Use Standard Drinks/Week Comments Yes 0 (1 standard drink = 0.6 oz pure Stoppe d after found out alcohol) Sex Assigned at Date Recorded Female 01/14/2020 10:57 AM PROCUREMENT COORDINATOR documented as of this encounter Miscellaneous Notes Telephone Encounter - Alexia [place] - 08/06/2016 2:38 PM CDT Calling to schedule pt with Nora Steele to dicuss medication. documented in this encounter Plan of Treatment Upcoming Encounters Date Type Specialty Care Team Description 12/20/2021 Office Visit Wound Care Luis Camara, [place] [address] [place] [address] (Wo rk) 01/21/2022 PRE VISIT Gastroenterology Landon Warren, *-*HEATHER G RECORDS*-* MD Luis Fernando [address] [place] [address] (Wo rk) 01/21/2022 Office Visit Gastroenterology Juanis Levi [address] [place] [phone] Luis Fernando Miles MD [address] [place] [address] documented as of this encounter Visit Diagnoses Not on filedocumented in this encounter Additional Health Concerns Infection Onset Date Last Indicated Resolved Time MRSAComment: Added from external infection. 11/07/201406/18 documented as of this encounter Care Teams Supervisor [place] Relationship Specialty Start Date End Date Clinic, [facility] PCP - General 07/14/[address] [phone] Luis Fernando Magana PCP - General Family Practice 12/07/16 01/19/[address] [address] Clinic, [facility] PCP - General 01/20/[address] [phone] Juanis Levi PCP - General Addiction Medicine 06/29/[address] [place] [phone] Tatyana Haas, Assigned PCP 08/02/18 01/29/20 FOOD STYLIST CONVEYOR TENDER [facility] [address] [facility] [place], [place] [address] Stephani Pina, Assigned PCP 01/30/20 12/30/20 FOOD STYLIST CONVEYOR TENDER [address] [address] [place], [place] [address] Tatyana Haas, Assigned PCP 12/31/20 02/24/21 FOOD STYLIST CONVEYOR TENDER [facility] [address] [facility] [place], [place] [address] Stephani Pina, Assigned PCP 02/25/21 FOOD STYLIST CONVEYOR TENDER [address] [address] [place] [address] Elsa Yeh, Registered Nurse Infectious Diseases 07/25/21 Rogelio Wilson Assigned Musculoskeletal 08/04/21 MD August Provider [address] [place], [place] [address] Luis Camara MD Podiatry 08/16/21 [place] Burnett [address] [place], [place] [address] Camryn Christina Assigned Surgical 09/01/21 09/07/21 MD Lexie Provider [address] [facility] 195 [place] [address] Sintia Lange PA-C Assigned Surgical 09/08/21 [address] [facility] 4TH [place] [address] Landon Warren MD Gastroenterology 11/21/21 MD Luis Fernando [facility] [place] [address] documented as of this encounter
--- OUTSIDE RECORDS SUMMARY | 2021-12-14 16:26 | XMS_ITS | Encounter Summary ---
:1980 Author Organization [place] Address [address] [facility] [address] Care Team Providers Name Role Phone System, Provider Not In Primary Care Provider Unavailable Reason for Visit Reason Onset Date Comments Medication Request 06/19/2016 Suboxone Encounter Details Date Type Department Care Team Description 06/19/2016 Telephone [facility] Edgar Alfredo, [facility] ication Request Clinic Ashly VÁSQUEZ (Suboxone ) [address] [place] [address] [place] [phone] (Wo rk) Social History Tobacco Use Types Packs/Day Years Used Date Smoking Tobacco: Every Day Cigarettes 0.1 10 Smokeless Tobacco: Never Comments: 5 cigarettes a day Alcohol Use Standard Drinks/Week Comments No 0 (1 standard drink = 0.6 oz pure alcoho l) Sex Assigned at Date Recorded Female 01/14/2020 10:57 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 Pt would like script sent to: [place], [place] - [address] [place] [address] Dora Merchant Architectural Engineer documented in this encounter Plan of Treatment Upcoming Encounters Date Type Specialty Care Team Description 12/20/2021 Office Visit Wound Care Luis Camara, [place] [address] [place] [address] (Wo rk) 01/21/2022 PRE VISIT Gastroenterology Landon Warren, *-*WANDAIN G RECORDS*-* MD Luis Fernando [address] [place] [address] (Wo rk) 01/21/2022 Office Visit Gastroenterology Juanis Levi [address] [place] [phone] Luis Fernando Miles MD [address] [place] [address] documented as of this encounter Visit Diagnoses Diagnosis Uncomplicated opioid dependence (H) - Pr imary Opioid type dependence, unspecified documented in this encounter Care Teams Renal Nurse Relationship Specialty Start Date End Date System, Provider Not In PCP - General Clinic 08/12/14 07/13/16 documented as of this encounter
--- OUTSIDE RECORDS SUMMARY | 2021-12-14 16:26 | XMS_ITS | Encounter Summary ---
:1980 Author Organization [place] Address [address] [facility] [place] [address] Care Team Providers Name Role Phone Clinic, [facility] Primary Care Provide r Reason for Visit Reason Onset Date Comments Medication Request 07/16/2016 Encounter Details Date Type Department Care Team Description 07/16/2016 Telephone [facility] Edgar Alfredo Ma rk, Medication Request Ashly VÁSQUEZ [address] [place] [address] [place] [phone] (Wo rk) Social History Tobacco Use Types Packs/Day Years Used Date Smoking Tobacco: Every Day Cigarettes 0.1 10 Smokeless Tobacco: Never Comments: 5 cigarettes a day Alcohol Use Standard Drinks/Week Comments No 0 (1 standard drink = 0.6 oz pure alcoho l) Sex Assigned at Date Recorded Female 01/14/2020 10:57 AM CONSTRUCTION REP documented as of this encounter Miscellaneous Notes Telephone Encounter - Edgar Alfredo MD - 07/17/2016 10:44 AM CDT Advised she can continue to take current Suboxone until next visit Telephone Encounter - Dora Merchant - 07/16/2016 2:10 PM CDT Reason for Call: prescription Detailed comments: Pt would like her suboxone script switched to subutex, because she is . Pharmacy of choice: [facility] - [place], [place] - [address] [facility] Phone Number Patient can be reached at: Home number on file [phone] (home) Best Time: Anytime Can we leave a detailed message on this number? YES Call taken on 07/16/2016 at 2:10 PM by Dora Merchant documented in this encounter Plan of Treatment Upcoming Encounters Date Type Specialty Care Team Description 12/20/2021 Office Visit Wound Care Luis Camara, [place] [address] [place] [address] (Wo rk) 01/21/2022 PRE VISIT Gastroenterology Landon Warren, *-*INCOMIN G RECORDS*-* MD Luis Fernando [address] [place] [address] (Wo rk) 01/21/2022 Office Visit Gastroenterology Juanis Levi [facility] [place] [phone] Luis Fernando Miles MD [address] [place] [address] documented as of this encounter Visit Diagnoses Not on filedocumented in this encounter Care Teams Base Filler Operator Relationship Specialty Start Date End Date Clinic, [facility] PCP - General 07/14/16 12/06/[address] [place] [address] documented as of this encounter
--- OUTSIDE RECORDS SUMMARY | 2021-12-14 16:26 | XMS_ITS | Encounter Summary ---
:1980 Author Organization [place] Address [address] [facility] [place] [address] Care Team Providers Name Role Phone Clinic, [...] Department Care Team Description 08/16/2016 PRE VISIT [facility] Sintia Rasheed Genetic Epifanio story (GC: Maternal Medicine GENARO Ghotra AMA, +Hep B, smoker, Hx [facility] heart defect, [address] subutex use); [place], [place] [address] Ultrasound (1st tri [phone] screen: AMA, +H ep B, smoker, Hx [...] Date Recorded Female 01/14/2020 10:57 AM SENIOR MANUFACTURING ENGINEER documented as of this encounter Plan of Treatment Upcoming Encounters Date Type Specialty Care Team Description 12/20/2021 Office Visit Wound Care Luis Camara DPM [address] [place], [place] [address] (Wo rk) 01/21/2022 PRE VISIT Gastroenterology Landon Warren, *-*INCOMIN G RECORDS*-* MD Luis Fernando [address] [address] (Wo rk) 01/21/2022 Office Visit Gastroenterology Juanis Levi [address] [place] [phone] Luis Fernando Miles MD [address] [place] [phone] documented as of this encounter Visit Diagnoses Not on filedocumented in this encounter Care Teams Infection Prevention Coordinator Relationship Specialty Start Date End Date Clinic, [facility] PCP - General 07/14/16 12/06/[address] [place] [address] documented as of this encounter
--- OUTSIDE RECORDS SUMMARY | 2021-12-14 16:26 | XMS_ITS | Encounter Summary ---
:1980 Author Organization [place] Address [address] [facility] [place] [address] Care Team Providers Name Role Phone Clinic, [facility] Primary Care Provide r Reason for Visit Reason Comments Abnormal Bleeding Problem Encounter Details Date Type Department Care Team Description 08/01/2016 Office Visit [facility] Mark Turner APRN [facility] [address] [place], [place] [address] High-risk , first trimester (Pr imary Dx); [facility] Violeta Fagan APRN CNM [address] [place], [place] [address] Twin with loss and reten tion of one fetus in first trimester; [place] Anxiety; [address] Uncomplicated opioid depende nce (H); [employer] Histo ry of depression; Bldg [facility] Current every day smoker; 3rd Flr,Ronnie [address] Hypothyroidism affecting pre gnancy in first trimester; [place], [place] Chronic hepa titis C without hepatic coma (H); [phone] Family history of SIDS (sudd en syndrome); [phone] History of feta l anomaly in prior [...] Date Recorded Female 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 o Eat a healthy diet. Visit www.The Infatuationmyplate.gov and click on ??? and ??? forinformation and tips o Do not smoke. Avoid other people's smoke, too. We are happy to help with referrals to stop smokingprograms. o Do not drink alcohol. o Try to avoid people who have colds or other infections. Practice good hand washing. o Consider registering for our Healthy Class here at [facility]. This class is offered every Friday from 2:30-4:30 p.m. Ono at [phone] or online at [email or web address] o Consider registering for education classes through [place] at [facility]. Youcan view class schedules and register online at [email or web address] or call [phone]) for questions For urgent concerns, call [facility] at to speak with a triage [...] [place]-Vitamin D ??? CBC with Platelets Differential [[id number]] ??? Anti Treponema [APH2228] ??? Rubella Antibody IgG Quantitative [[id number]] ??? Hepatitis B Surface Antigen [[id number]] ??? HIV Antigen Antibody Combo [[id number]] ??? Hepatitis C antibody ??? TSH with free T4 reflex ??? Hepatic Panel ??? Hepatitis C RNA quantitative ??? ABO/Rh Type and Screen [[id number]] - Oriented to Practice, types of care, [...] child born with cardiac and multiple anomalies. [facility] genetic appt scheduled 08/22/16. Plan echo - [...] history and current medications/regimens again at [facility] to ensure no co morbids excluded from plan. Pt to RTO for [facility] visit in 2 weeks with physician [...] Visit Wound Care Luis Camara DPM [address] [place], [place] [phone] (Reinaldo molina) 01/21/2022 PRE VISIT Gastroenterology Landon Warren, *-*INCOMIN G RECORDS*-* MD Luis Fernando [address] [place] [phone] (Reinaldo rk) 01/21/2022 Office Visit Gastroenterology Juanis Levi [address] [place] [phone] Luis Fernando Miles MD [address] [place] [phone] documented as of this encounter Results (ABNORMAL) Hepatitis C RNA quantitative (10/10/2016 1:52 PM CDT) [facility] Method Time Signature HCV RNA Quant 5,052,767 HCVND^HCV 10/14/2016 [facility] IU/ml (A) RNA Not 12:34 PM CDT [facility] [IU]/mL BANK Comment: The LEONARDO AmpliPrep/LEONARDO [...] (H) <1.2 Log IU/mL 10/14/2016 12:34 PM [facility] BANK Specimen Anatomical Collection Method Collection Time Receive d Time (Source) Location / / Volume Laterality Blood specimen 10/10/2016 1:52 PM 017 1:55 (specimen) CDT PM CDT Violeta Fagan APRN CNM LAB - BLOOD ORDERABLES Performing Organization Address City/State/ZIP Code Phon e Number [address] [address] [place] (ABNORMAL) Hepatic Panel (10/10/2016 1:52 PM CDT) [facility] Method Time Signature Bilirubin Direct 0.1 0.0 - 0.2 10/10/2016 [facility] O F mg/dL 3:12 PM CDT [facility] Bilirubin Total 0.4 0.2 - 1.3 10/10/2016 [facility] mg/dL 3:12 PM CDT [facility] Albumin 2.8 (L) 3.4 - 5.0 10/10/2016 [facility] g/dL 3:12 PM CDT [facility] Protein Total 7.1 6.8 - 8.8 10/10/2016 [facility] g/dL 3:12 PM CDT [facility] Alkaline 60 40 - 150 10/10/2016 [facility] Phosphatase U/L 3:19 PM CDT [facility] ALT 27 0 - 50 U/L 10/10/2016 [facility] 3:12 PM CDT [facility] AST 17 0 - 45 U/L 10/10/2016 [facility] ALICE 3:12 PM CDT [facility] Specimen Anatomical Collection Method Collection Time Receive d Time (Source) Location / / Volume Laterality Blood specimen 10/10/2016 1:52 PM 017 1:55 (specimen) CDT PM CDT Violeta Gillisjason Fagan APRN CN LAB - BLOOD ORDERABLES Performing Organization Address City/State/ZIP Code Phon e Number [address] [address] [facility] TSH with free T4 reflex (10/10/2016 1:52 PM CDT) P athologist Signature TSH 1.66 0.40 - 4.00 10/10/2016 [facility] mU/L 3:19 PM CDT [facility] Specimen Anatomical Collection Method Collection Time Receive d Time (Source) Location / / Volume Laterality Blood specimen 10/10/2016 1:52 PM 017 1:55 (specimen) CDT PM CDT Violeta Fagan APRN, CNM LAB - BLOOD ORDERABLES Performing Organization Address City/[facility]/ZIP Code Phon e Number [address] [address] [facility] (ABNORMAL) Hepatitis C antibody (10/10/2016 1:52 PM CDT) Patholo gist Method Time Signature Hepatitis C Reactive (A) NR^Nonrea 10/11/2016 [facility] ctive 1:18 PM CDT [facility] Comment: A reactive result indicates one of [...] (specimen) CDT PM CDT Violeta Fagan APRN [facility] LAB - BLOOD ORDERABLES Performing Organization Address City/[facility]/ZIP Code Phon e Number [facility] [address] [place], [place] [id number] [place] [address] HIV Antigen Antibody Combo [[id number]] (10/10/2016 1:52 PM CDT) [facility] Method Time Signature HIV Antigen Nonreactive NR^Nonrea 10/11/2016 [facility] Antibody ctive 1:18 PM CDT [facility] Comment: HIV-1 p24 Ag & HIV-1/HIV-2 Ab N ot Detected Specimen Anatomical Collection Method Collection Time Receive d Time (Source) Location / / Volume Laterality Blood specimen 10/10/2016 1:52 PM 017 1:55 (specimen) CDT PM CDT Violeta Fagan APRN [facility] LAB - BLOOD ORDERABLES Performing Organization Address City/[facility]/ZIP Code Phon e Number [facility] [address] Hepatitis B Surface Antigen [[id number]] (10/10/2016 1:52 PM CDT) [facility] Method Time Signature Hep B Surface Nonreactive NR^Nonrea 10/11/2016 [facility] Agn ctive 1:18 PM CDT [facility] Specimen Anatomical Collection Method Collection Time Receive d Time (Source) Location / / Volume Laterality Blood specimen 10/10/2016 1:52 PM 017 1:55 (specimen) CDT PM CDT Violeta Fagan APRN [facility] LAB - BLOOD ORDERABLES Performing Organization Address City/[facility]/ZIP Code Phon e Number [facility] [address] Rubella Antibody IgG Quantitative [[id number]] (10/10/2016 1:52 PM CDT) [facility] Signature Rubella Antibody 8 IU/mL 10/11/2016 [facility] O F IgG Quantitative 1:44 PM CDT [facility] Comment: Equivocal, please recollect. Reference Range: ??Unvaccinated Negative 0-7 IU/mL Vaccinated or previous exposure Positive 10 IU/ml or greater Specimen Anatomical Collection Method Collection Time Receive d Time (Source) Location / / Volume Laterality Blood specimen 10/10/2016 1:52 PM 017 1:55 (specimen) CDT PM CDT Violeta Bailey Rylan FARZANA ALBRIGHT LAB - BLOOD ORDERABLES Performing Organization Address City/[facility]/ZIP Code Phon e Number [facility] [address] Anti Treponema [[id number]] (10/10/2016 1:52 PM CDT) Analysis Performed At Patho logist Time Signature Treponema Negative NEG^Negati 10/11/2016 [facility] ve 10:21 AM CDT [facility] Specimen Anatomical Collection Method Collection Time Receive d Time (Source) Location / / Volume Laterality Blood specimen 10/10/2016 1:52 PM 017 1:55 (specimen) CDT PM CDT Violeta Bailey Rylan [facility] LAB - BLOOD ORDERABLES Performing Organization Address City/[facility]/ZIP Code Phon e Number [facility] [address] (ABNORMAL) CBC with Platelets Differential [[id number]] (10/10/2016 1:52 PM CDT) Patholo gist Method Time Signature WBC 5.3 4.0 - 10/10/2016 [facility] 11.0 2:52 PM CDT [facility] 10e9/L [facility] RBC Count 3.64 (L) 3.8 - 5.2 10/10/2016 [facility] 10e12/L 2:52 PM CDT [facility] Hemoglobin 11.1 (L) 11.7 - 10/10/2016 [facility] 15.7 g/dL 2:52 PM CDT [facility] Hematocrit 32.7 (L) 35.0 - 10/10/2016 [facility] 47.0 % 2:52 PM CDT [facility] MCV 90 78 - 100 10/10/2016 [facility] fl 2:52 PM CDT [facility] MCH 30.5 26.5 - 10/10/2016 [facility] 33.0 pg 2:52 PM CDT [facility] MCHC 33.9 31.5 - 10/10/2016 [facility] 36.5 g/dL 2:52 PM [facility] RDW 13.1 10.0 - 10/10/2016 [facility] 15.0 % 2:52 PM T [facility] Platelet Count 186 150 - 450 10/10/2016 [facility] 10e9/L 2:52 PM T [facility] Diff Method Automated 10/10/2016 [facility] Method 2:52 PM T [facility] % Neutrophils 61.4 % 10/10/2016 [facility] 2:52 PM [facility] % Lymphocytes 29.2 % 10/10/2016 [facility] 2:52 PM [facility] % Monocytes 6.2 % 10/10/2016 [facility] 2:52 PM [facility] % Eosinophils 2.8 % 10/10/2016 [facility] 2:52 PM [facility] % Basophils 0.2 % 10/10/2016 [facility] 2:52 PM [facility] % Immature 0.2 % 10/10/2016 [facility] Granulocytes 2:52 PM [facility] Nucleated RBCs 0 0 /100 10/10/2016 [facility] 2:52 PM [facility] Absolute 3.3 1.6 - 8.3 10/10/2016 [facility] Neutrophil 10e9/L 2:52 PM [facility] Absolute 1.6 0.8 - 5.3 10/10/2016 [facility] Lymphocytes 10e9/L 2:52 PM [facility] Absolute 0.3 0.0 - 1.3 10/10/2016 [facility] Monocytes 10e9/L 2:52 PM [facility] Absolute 0.2 0.0 - 0.7 10/10/2016 [facility] Eosinophils 10e9/L 2:52 PM T [facility] Absolute 0.0 0.0 - 0.2 10/10/2016 [facility] Basophils 10e9/L 2:52 PM [facility] Abs Immature 0.0 0 - 0.4 10/10/2016 [facility] Granulocytes 10e9/L 2:52 PM T [facility] Absolute 0.0 10/10/2016 [facility] Nucleated RBC 2:52 PM CDT [facility] Specimen Anatomical Collection Method Collection Time Receive d Time (Source) Location / / Volume Laterality Blood specimen 10/10/2016 1:52 PM 017 1:55 (specimen) CDT PM CDT Violeta Fagan APRN, CNM LAB - BLOOD ORDERABLES Performing Organization Address City/[facility]/ZIP Code Phon e Number [address] [address] [facility] ABO/Rh Type and Screen [[id number]] (10/10/2016 1:52 PM CDT) Patholo gist Method Time Signature ABO B 10/10/2016 [facility] 6:33 PM CDT [facility] RH(D) Pos [facility] Antibody Neg 10/10/2016 [facility] Screen 6:33 PM CDT [facility] Test Valid [facility] 10/10/2016 [facility] 4:54 PM CDT [facility] BANK w Hospital Specimen 10/13/2016 10/10/2016 [facility] Expires 4:54 PM CDT [facility] Specimen Anatomical Collection Method Collection Time Receive d Time (Source) Location / / Volume Laterality Blood specimen 10/10/2016 1:52 PM 017 1:56 (specimen) CDT PM CDT Violeta Fagan APRN, CNM LAB - BLOOD BANK TEST ORD ER Performing Organization Address [facility] Code Phon e Number [address] [address] [facility] 25- [place]-Vitamin D (10/10/2016 1:52 PM CDT) P athologist Signature Vitamin D 51 20 - 75 10/11/2016 [facility] Deficiency ug/L 1:18 PM CDT [facility] screening [facility] Comment: Season, race, dietary intake, and treatm ent affect the concentration of 91-jzdppsf-Zpjllzi D. Values may decreas e during winter [...] 1:55 (specimen) CDT PM CDT Violeta Fagan PHOTOENGRAVING FINISHER CNM LAB - BLOOD ORDERABLES Performing Organization Address City/State/[facility] Code Phon e Number [facility] [address] documented in this encounter Visit Diagnoses [...] disorder documented in this encounter Care Teams Film Spooler Relationship Specialty Start Date End Date Clinic, [facility] PCP - General 07/14/16 12/06/16 [facility] [place] [address] documented as of this encounter
--- OUTSIDE RECORDS SUMMARY | 2021-12-14 16:26 | XMS_ITS | Encounter Summary ---
:1980 Author Organization [place] Address [facility] [place] [address] Care Team Providers Name Role Phone Clinic, [facility] Primary Care Provide r Reason for Visit Reason Comments Vaginal Bleeding Encounter Details Date Type Department Care Team Description 08/29/2016 Emergency [facility] Jj Hermosillo, Abnormal vaginal bleeding; [facility] Emergency Dep t DO Threatened miscarriage [address] [facility] [place] [phone] [address] LUCIA [phone] [place] [address] (Wo rk) Social History Tobacco Use Types Packs/Day Years Used Date Smoking Tobacco: Every Day Cigarettes 0.1 10 Smokeless Tobacco: Never Comments: 5 cigarettes a day Alcohol Use Standard Drinks/Week Comments Yes 0 (1 standard drink = 0.6 oz pure Stoppe d after found out alcohol) Sex Assigned at Date Recorded Female 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 Date Last Reviewed: 10/19/2015 ?? [id number] [employer]. [address] [place] [address], [place] [address]. All rights reserved. This information is not [...] as of this encounter ED Notes Antonella Medrnao RN - 08/29/2016 2:45 PM CDT Patient [...] she is 13 weeks and follows at [facility]. She reports a history of complications, [...] uterus Past Surgical History: Breast surgery section Industrial/Organizational Psychologist surgery Orthopedic surgery Thoracic surgery Family History: [...] discussed the case with the patient's nurse varnisher apprentice out of [facility]. They believe she can be discharged, [...] provider's statements to me. Areli Morejon 08/29/2016 [facility] Jj Hermosillo DO 08/29/16 [id number] documented in this encounter Plan of Treatment Upcoming Encounters Date Type Specialty Care Team Description 12/20/2021 Office Visit Wound Care Luis Camara DPM [address] [place] [address] (Wo rk) 01/21/2022 PRE VISIT Gastroenterology Landon Warren, *-*HEATHER Barriga RECORDS*-* MD Luis Fernando [address] [address] (Wo rk) 01/21/2022 Office Visit Gastroenterology Juanis Levi [address] [place] [phone] Luis Fernando Miles MD [address] [facility] [address] [place] [address] documented as of this encounter Procedures Procedure [...] Neisseria gonorrhoea PCR (08/29/2016 5:30 PM CDT) [facility] Method Time Signature Specimen Vagina [facility] N Gonorrhea Negative NEG MICRO RAPID [...] e Number MICRO RAPID TESTING LAB [address] [place] [address] [facility] [address] [place], [place] [address], [facility] [phone] Chlamydia trachomatis PCR (08/29/2016 5:30 PM CDT) Component Value Ref Test Analysis Performed At [facility] Method Time Signature Specimen Vagina [facility] Chlamydia Negative NEG MICRO RAPID Trachomatis PCR Negative for C. trachomatis rRNA by grants specialist mediated amplification. TESTING LAB A negative result [...] MICRO GENERAL ORDERABL ES Performing Organization Address City/[facility]/ZIP Code Phon e Number MICRO RAPID TESTING LAB [address] [place], [place] [id number] [place] [address] [address] [place], [place] [address], [facility] [phone] Wet prep (08/29/2016 5:30 PM CDT) [facility] Method [place] Signature Specimen Vagina [facility] Wet Prep Few PMNs seen [facility] No Trichomonas seen [facility] No yeast seen [facility] No clue cells seen Micro Report FINAL [facility] Status 08/29/2016 [facility] Specimen Anatomical Collection Method Collection Time Receive d Time (Source) Location / / Volume Laterality Vaginal swab 08/29/2016 5:30 PM 7 5:41 (specimen) CDT PM CDT Jj Hermosillo DO LAB - MICRO GENERAL ORDERABL ES Performing Organization Address City/[facility]/ZIP [facility] Phon e Number [facility] [address] [place], [place] [address] [facility] [address] [place], [place] [address], [facility] [phone] US OB < 14 Weeks Single (08/29/2016 [...] type and screen (08/29/2016 3:04 PM CDT) [facility] [employer] Method Time Signature ABO B [facility] RH(D) Pos [facility] Antibody Neg [facility] Screen [facility] Test Valid [facility] Only At [facility] HOSPITAL Specimen 09/01/2016 [facility] Specimen Anatomical Collection Method Collection Time Receive d Time (Source) Location / / Volume Laterality Blood specimen 08/29/2016 3:04 PM 017 5:13 (specimen) CDT PM CDT Jj Hermosillo DO LAB - BLOOD BANK TEST ORDER Performing Organization Address City/State/ZIP Code Phon e Number [facility] [address] [place], [place] [address] HOSPITAL [facility] [address] [place], [place] [address] [place] [address] (ABNORMAL) Basic metabolic panel (08/29/2016 3:04 PM CDT) [facility] [employer] Method Time Signature Sodium 136 133 - 144 [facility] mmol/L [facility] Potassium 2.9 (L) 3.4 - 5.3 [facility] mmol/L [facility] Chloride 104 94 - 109 [facility] mmol/L [facility] Carbon Dioxide 23 20 - 32 [facility] mmol/L [facility] Anion Gap 9 3 - 14 [facility] mmol/L [facility] Glucose 88 70 - 99 [facility] mg/dL [facility] Urea Nitrogen 7 7 - 30 [facility] mg/dL [facility] Creatinine 0.70 0.52 - [facility] 1.04 [facility] mg/dL HOSPITAL GFR Estimate >90 >60 [facility] Non GFR Calc mL/min/1. [facility] 7m2 HOSPITAL GFR Estimate >90 >60 [facility] If Black GFR Calc mL/min/1. RIDG [facility] 7m2 [facility] Calcium 8.2 (L) 8.5 - [facility] 10.1 [facility] mg/dL HOSPITAL Specimen Anatomical Collection Method Collection Time Receive d Time (Source) Location / / Volume Laterality Blood specimen 08/29/2016 3:04 PM 017 3:22 (specimen) CDT PM CDT Jj Hermosillo DO LAB - BLOOD ORDERABLES Performing Organization Address City/State/ZIP Code Phon e Number [place] [address] [address] [place] [address] HOSPITAL [facility] [address] [phone] (ABNORMAL) CBC with platelets differential (08/29/2016 3:04 PM CDT) [facility] Method Time Signature WBC 6.6 4.0 - [facility] 11.0 [facility] 10e9/L [facility] RBC Count 3.48 (L) 3.8 - 5.2 [facility] 10e12/L [facility] Hemoglobin 10.9 (L) 11.7 - [facility] 15.7 g/dL [facility] Hematocrit 31.9 (L) 35.0 - [facility] 47.0 % [facility] MCV 92 78 - 100 [facility] fl [facility] MCH 31.3 26.5 - [facility] 33.0 pg [facility] MCHC 34.2 31.5 - [facility] 36.5 g/dL [facility] RDW 12.2 10.0 - [facility] 15.0 % [facility] Platelet Count 163 150 - 450 [facility] 10e9/L [facility] Diff Method Automated [facility] Method [facility] % Neutrophils 57.1 % [facility] % Lymphocytes 31.2 % [facility] % Monocytes 7.4 % [facility] % Eosinophils 3.8 % [facility] % Basophils 0.2 % [facility] % Immature 0.3 % [facility] Granulocytes [facility] Nucleated RBCs 0 0 /100 [facility] Absolute 3.8 1.6 - 8.3 [facility] Neutrophil 10e9/[facility] Absolute 2.1 0.8 - 5.3 [facility] Lymphocytes 10e9/L [facility] Absolute 0.5 0.0 - 1.3 [facility] Monocytes 10e9/L [facility] Absolute 0.3 0.0 - 0.7 [facility] Eosinophils 10e9/[facility] Absolute 0.0 0.0 - 0.2 [facility] Basophils [address] [place] [address] Abs Immature 0.0 0 - 0.4 [facility] Granulocytes [address] [place] [address] Absolute 0.0 [facility] Nucleated RBC [facility] Specimen Anatomical Collection Method Collection Time Receive d Time (Source) Location / / Volume Laterality Blood specimen 08/29/2016 3:04 PM 017 3:22 (specimen) CDT PM CDT Jj Hermosillo DO LAB - BLOOD ORDERABLES Performing Organization Address City/State/ZIP Code Phon e Number [place] [address] [facility] [address] [phone] documented in this encounter Visit Diagnoses Diagnosis [...] 1515 documented in this encounter Care Teams Multiple Knife Edge Trimmer Operator Relationship Specialty Start Date End Date Clinic, [facility] PCP - General 07/14/16 12/06/[address] [place] [address] [phone] documented as of this encounter
--- OUTSIDE RECORDS SUMMARY | 2021-12-14 16:26 | XMS_ITS | Encounter Summary ---
:1980 Author Organization [place] Address [address] [facility] [place] [address] Care Team Providers Name Role Phone Clinic, [facility] Primary Care Provide r Reason for Referral - Closed Specialty Diagnoses / Procedures Referred By Contact Refer red To Contact Diagnoses Supervision of high-risk , first trimester Ur Maternal Med [address] [place], [place] [address] Referral ID Status Reason Start Date Expiration Date Visits Requ ested Visits Authorized [id number] Closed 08/22/2016 08/22/2017 1 1 Encounter Details Date Type Department Care Team Description 07/18/2016 Orders Only [facility] Anabelle Thomas rvision of Maternal GENARO Norris high-risk pre gnancy, Medicine Center [facility] (Primary Dx) [address] [place], [place] [address] Social History Tobacco Use Types Packs/Day Years Used Date Smoking Tobacco: Every Day Cigarettes 0.1 10 Smokeless Tobacco: Never Comments: 5 cigarettes a day Alcohol Use Standard Drinks/Week Comments No 0 (1 standard drink = 0.6 oz pure alcoho l) Sex Assigned at Date Recorded Female 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 NO: [id number] Referring ??MD: RICHARD STEIN Site: [facility] Wwe Wrestler: Mayela Teague RD MS : 1980 Age: [...] Pat. Name:Clovis REDDYjames Date:09/10 12:12pm Pat. NO: [id number] MD:MAY JITENDRA DENNY [facility]Mayela [facility]ague RDMS :1980Age:35 INDICATION Vaginal [...] uns cheduled ultrasound with the patient. Her [facility] consultation is scheduled in 2 days at [...] trimester documented in this encounter Care Teams Creamery Worker Relationship Specialty Start Date End Date Clinic, [facility] PCP - General 07/14/16 12/06/[address] [place] [address] documented as of this encounter
--- OUTSIDE RECORDS SUMMARY | 2021-12-14 16:26 | XMS_ITS | Encounter Summary ---
:1980 Author Organization [place] Address [address] [facility] [place] [address] Care Team Providers Name Role Phone Clinic, [facility] Primary Care Provide r Encounter Details Date Type Department Care Team Description 08/01/2016 Office Visit [facility] Spec, Nurse Only Superv ision of Women's [facility] Med high-risk pre gnancy, [place] first trimester [address] (Primary Dx) [place] [facility] [address] [place] [address] Social History Tobacco Use Types Packs/Day Years Used Date Smoking Tobacco: Every Day Cigarettes 0.1 10 Smokeless Tobacco: Never Comments: 5 cigarettes a day Alcohol Use Standard Drinks/Week Comments Yes 0 (1 standard drink = 0.6 oz pure Stoppe d after found out alcohol) Sex Assigned at Date Recorded Female 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/2020 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 documented as of this encounter Progress [...] Visit Wound Care Luis Camara, DPM [address] [place], [place] [address] (Wo rk) 01/21/2022 PRE VISIT Gastroenterology Landon Warren, *-*INCOMIN G RECORDS*-* MD Luis Fernando [address] [place] [phone] (Wo rk) 01/21/2022 Office Visit Gastroenterology Juanis Levi [address] [place] [phone] Luis Fernando Miles MD [address] [place] [address] documented as of this encounter Visit Diagnoses Diagnosis Supervision of high-risk , firs t trimester - Primary documented in this encounter Care Teams Re Dye Hand Relationship Specialty Start Date End Date Clinic, [facility] PCP - General 07/14/16 12/06/[address] [place] [address] documented as of this encounter
--- OUTSIDE RECORDS SUMMARY | 2021-12-14 16:26 | XMS_ITS | Encounter Summary ---
:1980 Author Organization [place] Address [address] [place] [address] Care Team Providers Name Role Phone Clinic, [facility] Primary Care Provide r Luis Fernando Magana Primary Care Provider Reason for Visit Reason Onset Date Comments Vaginal Bleeding 07/18/2016 8 weeks wit h weeks, very high ristk pregancy, she is bleeding heav mateo and passed 6-7 clots so far Encounter Details Date Type Department Care Team Description 07/18/2016 [facility] Mark Turner, Vaginal Bleeding (8 [facility] TRAVEL NURSE CNM weeks with [facility] weeks, very high ristk [address] SPECIALISTS pregancy, she is [place] [facility] [address] bleeding heavily and Bldg [facility] [address] [place], [place] passed 6-7 clots so [address] [address] far) [place], [place] [phone] (Work) [phone] Social History Tobacco Use Types Packs/Day Years Used Date Smoking Tobacco: Every Day Cigarettes 0.1 10 Smokeless Tobacco: Never Comments: 5 cigarettes a day Alcohol Use Standard Drinks/Week Comments No 0 (1 standard drink = 0.6 oz pure alcoho l) Sex Assigned at Date Recorded Female 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/2020 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 documented as of this encounter Plan of Treatment Upcoming Encounters Date Type Specialty Care Team Description 12/20/2021 Office Visit Wound Care Luis Camara, [place] [address] [place], [place] [phone] (Wo rk) 01/21/2022 PRE VISIT Gastroenterology Landon Warren, *-*WANDAIN G RECORDS*-* MD Luis Fernando [address] [facility] [address] [place], [place] [phone] (Wo rk) 01/21/2022 Office Visit Gastroenterology Juanis Levi [address] [place] [phone] Luis Fernando Miles MD [address] [phone] documented as of this encounter Visit Diagnoses Not on filedocumented in this encounter Care Teams Flatbed Press Operator Relationship Specialty Start Date End Date Clinic, [facility] PCP - General 07/14/16 12/06/[address] [place] [address] Luis Fernando Magana PCP - General Family Practice 12/07/16 01/19/[address] [address] documented as of this encounter
--- OUTSIDE RECORDS SUMMARY | 2021-12-14 16:27 | XMS_ITS | Encounter Summary ---
:1980 Author Organization [place] Address [address] [facility] [place] [address] Care Team Providers Name Role Phone System, Provider Not In Primary Care Provider Unavailable Reason for Visit Reason Onset Date Comments Medication Request 08/09/2015 Subutex Encounter Details Date Type Department Care Team Description 08/09/2015 Telephone [facility] Edgar Alfredo, [facility] ication Request Clinic Ashly VÁSQUEZ (Subutex) [address] [place] [address] [place] [phone] (Wo rk) Social History Tobacco Use Types Packs/Day Years Used Date Smoking Tobacco: Every Day Cigarettes 0.1 10 Smokeless Tobacco: Never Comments: 5 cigarettes a day Alcohol Use Standard Drinks/Week Comments No 0 (1 standard drink = 0.6 oz pure alcoho l) Sex Assigned at Date Recorded Female 01/14/2020 10:57 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 YES Call taken on 08/09/2015 at 2:08 PM by Mark Roldan Thank you, Mark Roldan City Administrator [facility] documented in this encounter Plan of Treatment Upcoming Encounters Date Type Specialty Care Team Description 12/20/2021 Office Visit Wound Care Luis Camara, [place] [address] [place] [address] (Wo rk) 01/21/2022 PRE VISIT Gastroenterology Landon Warren, *-*INCOMIN G RECORDS*-* MD Luis Fernando 6 [facility] [address] [place], [place] [address] (Wo rk) 01/21/2022 Office Visit Gastroenterology Juanis Levi [address] [place] [address] Luis Fernando Miles MD 6 [facility] [address] [place], [place] [address] documented as of this encounter Visit Diagnoses Diagnosis Uncomplicated opioid dependence (H) - Pr imary Opioid type dependence, unspecified documented in this encounter Care Teams Facilities Operations Technician Relationship Specialty Start Date End Date System, Provider Not In PCP - General Clinic 08/12/14 07/13/16 documented as of this encounter
--- OUTSIDE RECORDS SUMMARY | 2021-12-14 16:27 | XMS_ITS | Encounter Summary ---
:1980 Author Organization [place] Address [address] [place] [address] Care Team Providers Name Role Phone System, Provider Not In Primary Care Provider Unavailable Reason for Visit Reason Onset Date Comments Erroneous encounter-disregard 02/12/2016 Encounter Details Date Type Department Care Team Description 02/12/2016 Office Visit [facility] Edgar Alfredo ERRONEOUS Clinic Ashly Gauthier MD ENCOUNTER--DISREGARD [address] [place] (Primary Dx) [address] [place] [phone] Social History Tobacco Use Types Packs/Day Years Used Date Smoking Tobacco: Every Day Cigarettes 0.1 10 Smokeless Tobacco: Never Comments: 5 cigarettes a day Alcohol Use Standard Drinks/Week Comments No 0 (1 standard drink = 0.6 oz pure alcoho l) Sex Assigned at Date Recorded Female 01/14/2020 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 Please disregard. [place] MERCHANDISER documented in this encounter Plan of Treatment Upcoming Encounters Date Type Specialty Care Team Description 12/20/2021 Office Visit Wound Care Luis Camara, [place]VIN [address] [place] [address] (Wo rk) 01/21/2022 PRE VISIT Gastroenterology Landon Warren, *-*WANDAIN G RECORDS*-* MD Luis Fernando [address] [phone] (Wo rk) 01/21/2022 Office Visit Gastroenterology Juanis Levi [address] [place] [phone] Luis Fernando Miles MD [address] [phone] documented as of this encounter Visit Diagnoses Diagnosis ERRONEOUS ENCOUNTER--DISREGARD - Primary documented in this encounter Care Teams Bobbin Sorter Relationship Specialty Start Date End Date System, Provider Not In PCP - General Clinic 08/12/14 07/13/16 documented as of this encounter
--- OUTSIDE RECORDS SUMMARY | 2021-12-14 16:27 | XMS_ITS | Encounter Summary ---
:1980 Author Organization [place] Address [address] [facility] [place] [address] Care Team Providers Name Role Phone System, Provider Not In Primary Care Provider Unavailable Reason for Visit Reason Onset Date Comments Recheck Medication Erroneous encounter-disregard 09/25/2015 Encounter Details Date Type Department Care Team Description 09/18/2015 Office Visit [facility] Edgar Alfredo NO SHOW ( Primary Dx); Clinic Ashly Gauthier MD ERRONEOUS ENCOUNTER--DISREGARD [address] [place] [address] [place] [phone] Social History Tobacco Use Types Packs/Day Years Used Date Smoking Tobacco: Every Day Cigarettes 0.1 10 Smokeless Tobacco: Never Comments: 5 cigarettes a day Alcohol Use Standard Drinks/Week Comments No 0 (1 standard drink = 0.6 oz pure alcoho l) Sex Assigned at Date Recorded Female 01/14/2020 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 Please disregard. documented in this encounter Plan of Treatment Upcoming Encounters Date Type Specialty Care Team Description 12/20/2021 Office Visit Wound Care Luis Camara, [place] [address] [place], [place] [phone] (Wo rk) 01/21/2022 PRE VISIT Gastroenterology Landon Warren, *-*WANDAIN G RECORDS*-* MD Luis Fernando [address] [place] [address] (Wo rk) 01/21/2022 Office Visit Gastroenterology Juanis Levi [address] [place] [phone] Luis Fernando Miles MD [address] [place] [phone] documented as of this encounter Visit Diagnoses Diagnosis NO SHOW - Primary ERRONEOUS ENCOUNTER--DISREGARD documented in this encounter Care Teams Regulatory Affairs Consultant Relationship Specialty Start Date End Date System, Provider Not In PCP - General Clinic 08/12/14 07/13/16 documented as of this encounter
--- OUTSIDE RECORDS SUMMARY | 2021-12-14 16:27 | XMS_ITS | Encounter Summary ---
:1980 Author Organization [place] Address [address] [place] [address] Care Team Providers Name Role Phone System, Provider Not In Primary Care Provider Unavailable Reason for Visit Reason Onset Date Comments Medication Request 06/03/2016 Subx bridge Encounter Details Date Type Department Care Team Description 06/03/2016 Telephone [facility] Edgar Alfredo, [facility] ication Request Clinic Ashly VÁSQUEZ (Subx bridge) [address] [place] [address] [place] [phone] (Wo rk) Social History Tobacco Use Types Packs/Day Years Used Date Smoking Tobacco: Every Day Cigarettes 0.1 10 Smokeless Tobacco: Never Comments: 5 cigarettes a day Alcohol Use Standard Drinks/Week Comments No 0 (1 standard drink = 0.6 oz pure alcoho l) Sex Assigned at Date Recorded Female 01/14/2020 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 Pt would like script sent to [address] Dora Merchant Industrial Refrigeration Mechanic documented in this encounter Plan of Treatment Upcoming Encounters Date Type Specialty Care Team Description 12/20/2021 Office Visit Wound Care Luis Camara, DPM [address] [place] [address] (Wo rk) 01/21/2022 PRE VISIT Gastroenterology Landon Warren, *-*WANDAIN G RECORDS*-* MD Luis Fernando [address] [place] [phone] (Wo rk) 01/21/2022 Office Visit Gastroenterology Juanis Levi [address] [place] [phone] Luis Fernando Miles MD [address] [place] [phone] documented as of this encounter Visit Diagnoses Diagnosis Uncomplicated opioid dependence (H) Opioid type dependence, unspecified documented in this encounter Care Teams Apparel Merchandiser Relationship Specialty Start Date End Date System, Provider Not In PCP - General Clinic 08/12/14 07/13/16 documented as of this encounter
--- OUTSIDE RECORDS SUMMARY | 2021-12-14 16:27 | XMS_ITS | Encounter Summary ---
:1980 Author Organization [place] Address [address] [facility] [place] [address] Care Team Providers Name Role Phone System, Provider Not In Primary Care Provider Unavailable Reason for Visit Reason Onset Date Comments Refill Request 08/22/2015 Emergency Appointmen t Needed Today (SUBOXONE) Encounter Details Date Type Department Care Team Description 08/22/2015 Telephone [facility] Edgar Alfredo, Ref ill Request Clinic Ashly VÁSQUEZ (Emergency Appointment [address] [place] Needed Today [phone] (SUBOXONE)) [place] [phone] (Wo rk) Social History Tobacco Use Types Packs/Day Years Used Date Smoking Tobacco: Every Day Cigarettes 0.1 10 Smokeless Tobacco: Never Comments: 5 cigarettes a day Alcohol Use Standard Drinks/Week Comments No 0 (1 standard drink = 0.6 oz pure alcoho l) Sex Assigned at Date Recorded Female 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 Patient will like to be seen today. Staff informed patient call will be routed to and his MA. Patient understood. Lupe Lantigua MA documented in this encounter Plan of Treatment Upcoming Encounters Date Type Specialty Care Team Description 12/20/2021 Office Visit Wound Care Luis Camara DPM [address] [place] [address] (Wo rk) 01/21/2022 PRE VISIT Gastroenterology Landon Warren, *-*INCOMIN G RECORDS*-* MD Luis Fernando 6 [facility] 2[address] [place], [place] [phone] (Wo rk) 01/21/2022 Office Visit Gastroenterology Juanis Levi [address] [place] [address] Luis Fernando Miles MD [address] [place] [address] [address] [place], [place] [phone] documented as of this encounter Visit Diagnoses Not on filedocumented in this encounter Care Teams Technologist Development Relationship Specialty Start Date End Date System, Provider Not In PCP - General Clinic 08/12/14 07/13/16 documented as of this encounter
--- OUTSIDE RECORDS SUMMARY | 2021-12-14 16:27 | XMS_ITS | Encounter Summary ---
:1980 Author Organization [place] Address [address] [facility] [place] [address] Care Team Providers Name Role Phone System, Provider Not In Primary Care Provider Unavailable Reason for Visit Reason Onset Date Comments Patient Request 11/22/2015 [facility] appt Encounter Details Date Type Department Care Team Description 11/22/2015 Telephone [facility] Edgar Alfredo Pat ient Request ([facility] appt ) [address] [place] [address] [place] [phone] (Wo rk) Social History Tobacco Use Types Packs/Day Years Used Date Smoking Tobacco: Every Day Cigarettes 0.1 10 Smokeless Tobacco: Never Comments: 5 cigarettes a day Alcohol Use Standard Drinks/Week Comments No 0 (1 standard drink = 0.6 oz pure alcoho l) Sex Assigned at Date Recorded Female 01/14/2020 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 Pt refused to disclose to software writer why she'd like to be seen sooner. Please follow up. Contact info: [phone] (Ok to leave detailed message, per pt) Thank you, Dora Merchant Packaging Sales Integrated [facility] documented in this encounter Plan of Treatment Upcoming Encounters Date Type Specialty Care Team Description 12/20/2021 Office Visit Wound Care Luis Camara, CALVIN [address] [place] [address] (Wo rk) 01/21/2022 PRE VISIT Gastroenterology Landon Warren, *-*HEATHER G RECORDS*-* MD Luis Fernando [address] [place] [phone] (Wo rk) 01/21/2022 Office Visit Gastroenterology Juanis Levi [address] [place] [phone] Luis Fernando Miles MD [address] [place] [phone] documented as of this encounter Visit Diagnoses Not on filedocumented in this encounter Care Teams Data Integration Developer Relationship Specialty Start Date End Date System, Provider Not In PCP - General Clinic 08/12/14 07/13/16 documented as of this encounter
--- OUTSIDE RECORDS SUMMARY | 2021-12-14 16:27 | XMS_ITS | Encounter Summary ---
:1980 Author Organization [place] Address [address] [place] [address] Care Team Providers Name Role Phone System, Provider Not In Primary Care Provider Unavailable Reason for Visit Reason Onset Date Comments No Show Erroneous encounter-disregard 08/21/2015 Encounter Details Date Type Department Care Team Description 08/14/2015 Office Visit [facility] Edgar Alfredo NO SHOW ( Primary Dx); Clinic Ashly Gauthier MD ERRONEOUS ENCOUNTER--DISREGARD [address] [place] [address] [place] [phone] Social History Tobacco Use Types Packs/Day Years Used Date Smoking Tobacco: Every Day Cigarettes 0.1 10 Smokeless Tobacco: Never Comments: 5 cigarettes a day Alcohol Use Standard Drinks/Week Comments No 0 (1 standard drink = 0.6 oz pure alcoho l) Sex Assigned at Date Recorded Female 01/14/2020 10:57 AM SCRAP PILER documented as of this encounter Progress Notes Edgar Alfredo MD - 08/21/2015 11:38 AM CDT This encounter was opened in error. Please disregard. documented in this encounter Plan of Treatment Upcoming Encounters Date Type Specialty Care Team Description 12/20/2021 Office Visit Wound Care Luis Camara, [place] [address] [place], [place] [phone] (Wo rk) 01/21/2022 PRE VISIT Gastroenterology Landon Warren, *-*INCOMIN G RECORDS*-* MD Luis Fernando [address] [place] [address] (Wo rk) 01/21/2022 Office Visit Gastroenterology Juanis Levi [address] [place] [phone] Luis Fernando Miles MD [address] [place] [phone] documented as of this encounter Visit Diagnoses Diagnosis NO SHOW - Primary ERRONEOUS ENCOUNTER--DISREGARD documented in this encounter Care Teams Temper Mill Operator Relationship Specialty Start Date End Date System, Provider Not In PCP - General Clinic 08/12/14 07/13/16 documented as of this encounter
--- OUTSIDE RECORDS SUMMARY | 2021-12-14 16:27 | XMS_ITS | Encounter Summary ---
:1980 Author Organization [place] Address [address] [facility] [place] [address] Care Team Providers Name Role Phone System, Provider Not In Primary Care Provider Unavailable Reason for Visit Reason Comments Recheck Medication Encounter Details Date Type Department Care Team Description 11/06/2015 Office Visit [facility] Edgar Alfredo Seasonal allergic rhinitis (Primary Dx); Clinic Ashly Gauthier MD Uncomplicated opioid dependence (H) [address] [place] [address] [place] [phone] Social History Tobacco Use Types Packs/Day Years Used Date Smoking Tobacco: Every Day Cigarettes 0.1 10 Smokeless Tobacco: Never Comments: 5 cigarettes a day Alcohol Use Standard Drinks/Week Comments No 0 (1 standard drink = 0.6 oz pure alcoho l) Sex Assigned at Date Recorded Female 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 Gobshuxa-Pon-Is-FA ( VITAMINS) 0.8 MG TABS Take 1 tablet by mouth daily 30 tablet 6 ??? [DISCONTINUED] VITAMINS PO Take by mouth. No Known Allergies Problem list, Medication list, Allergies, and Medical/Social/Surgical histories reviewed in [facility] andupdated as appropriate. ROS: OBJECTIVE: [...] visit in 1 MONTH Edgar Alfredo MD [facility] documented in [...] Visit Wound Care Luis Camara, [place]VIN [address] [place], [place] [address] (Wo rk) 01/21/2022 PRE VISIT Gastroenterology Landon Warren, *-*HEATHER Barriga RECORDS*-* MD Luis Fernando [address] [phone] (Wo rk) 01/21/2022 Office Visit Gastroenterology Juanis Levi [address] [place] [phone] Luis Fernando Miles MD [address] [phone] documented as of this encounter Procedures Procedure [...] Organization Address City/State/[place] [address] [facility] Building [address] [...] Organization Address City/State/[place] [address] [facility] Building [address] [address] [facility] documented in this encounter Visit Diagnoses Diagnosis Seasonal allergic rhinitis - Primary Allergic rhinitis, cause unspecified Uncomplicated opioid dependence (H) Opioid type dependence, unspecified documented in this encounter Care Teams Ferryboat Ticket Taker Relationship Specialty Start Date End Date System, Provider Not In PCP - General Clinic 08/12/14 07/13/16 documented as of this encounter
--- OUTSIDE RECORDS SUMMARY | 2021-12-14 16:27 | XMS_ITS | Encounter Summary ---
:1980 Author Organization [place] Address [address] [place] [address] Care Team Providers Name Role Phone System, Provider Not In Primary Care Provider Unavailable Reason for Visit Reason Comments Recheck Medication Encounter Details Date Type Department Care Team Description 02/13/2016 Office Visit [facility] Edgar Alfredo Uncomplic ated opioid Clinic Ashly Gauthier MD dependence (H) (Primary [address]) [address] [place] [phone] Social History Tobacco Use Types Packs/Day Years Used Date Smoking Tobacco: Every Day Cigarettes 0.1 10 Smokeless Tobacco: Never Comments: 5 cigarettes a day Alcohol Use Standard Drinks/Week Comments No 0 (1 standard drink = 0.6 oz pure alcoho l) Sex Assigned at Date Recorded Female 01/14/2020 10:57 AM INVESTMENT UNDERWRITER documented as of this encounter Last Filed Vital Signs Vital Sign Reading Time Taken Comments Blood Pressure 145/97 02/13/2016 10:59 AM INVESTMENT UNDERWRITER Pulse 113 02/13/2016 10:59 AM INVESTMENT UNDERWRITER Temperature 36.6 ??C (97.9 ??F) 02/13/2016 10:59 AM INVESTMENT UNDERWRITER Respiratory Rate 10 02/13/2016 10:59 AM INVESTMENT UNDERWRITER Oxygen Saturation 98% 02/13/2016 10:59 AM INVESTMENT UNDERWRITER Inhaled Oxygen Concentration - - Weight 79.4 kg (175 lb) 02/13/2016 10:59 AM INVESTMENT UNDERWRITER Height - - Body Mass Index 28.68 01/07/2013 11:29 AM INVESTMENT UNDERWRITER documented in this encounter Progress Notes Edgar [...] Take 1 tablet by mouth daily ??? Altuvmiq-Nzf-Ow-FA ( VITAMINS) 0.8 MG TABS Take 1 [...] less. 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 FOR RESOLUTION REP USE OF HIGH RISK MEDICATION High Risk [...] visit in 2 MONTHS Edgar Alfredo MD [facility] STMENT UNDERWRITER documented in this encounter Plan of Treatment Upcoming Encounters Date Type Specialty Care Team Description 12/20/2021 Office Visit Wound Care Luis Camara DPM [address] [place], [place] [phone] (Reinaldo molina) 01/21/2022 PRE VISIT Gastroenterology Landon Warren, *-*HEATHER Barriga RECORDS*-* MD Luis Fernando [address] [facility] [address] [place], [place] [address] (Reinaldo molina) 01/21/2022 Office Visit Gastroenterology Amita Juanis M [address] [place] [phone] Luis Fernando Miles MD [address] [facility] [address] [place] [address] documented as of this encounter Procedures Procedure Name Priority Date/Time Associated Diagnosis Comme nts BUPRENORPHINE QUAL Routine 02/13/2016 10:58 Uncomplicated opio id Results for this URINE AM INVESTMENT UNDERWRITER dependence (H) procedure are in the results section. DRUG ABUSE SCREEN Routine 02/13/2016 10:58 Uncomplicated opioi d Results for this (NL, RW) AM INVESTMENT UNDERWRITER dependence (H) procedure are in the results section. documented in this encounter Results Drug abuse screen (NL, RW) (02/13/2016 10:58 AM INVESTMENT UNDERWRITER) Component Value Ref Test Analysis Performed Pathologis [...] Urine specimen 02/13/2016 10:58 6 (specimen) AM INVESTMENT UNDERWRITER 10:59 AM INVESTMENT UNDERWRITER Edgar Alfredo MD LAB - URINE ORDERABLES Performing Organization Address [facility] [place] [address] [facility] Building [address] [facility] LAB Buprenorphine Qual Urine (02/13/2016 10:58 AM INVESTMENT UNDERWRITER) [facility] Method Time Signature Buprenorphine Positive [facility] LAB Qual Urine Specimen Anatomical Collection Method Collection Time Receive d Time (Source) Location / / Volume Laterality Urine specimen 02/13/2016 10:58 6 (specimen) AM INVESTMENT UNDERWRITER 10:59 AM INVESTMENT UNDERWRITER Edgar Alfredo MD LAB - URINE ORDERABLES Performing Organization Address [facility] [place] [address] [facility]IMARY [facility] Building [address] [facility] LAB documented in this encounter Visit Diagnoses Diagnosis Uncomplicated opioid dependence (H) - Pr imary Opioid type dependence, unspecified documented in this encounter Care Teams Instructional Assistant Relationship Specialty Start Date End Date System, Provider Not In PCP - General Clinic 08/12/14 07/13/16 documented as of this encounter
--- OUTSIDE RECORDS SUMMARY | 2021-12-14 16:27 | XMS_ITS | Encounter Summary ---
:1980 Author Organization [place] Address [address] [facility] [place] [address] Care Team Providers Name Role Phone System, Provider Not In Primary Care Provider Unavailable Reason for Visit Reason Onset Date Comments Medication Request 10/25/2015 Encounter Details Date Type Department Care Team Description 10/25/2015 Telephone [facility] Edgar Alfredo Ma, Medication Request [place] [address] [place] [address] [place] [phone] (Reinaldo rk) Social History Tobacco Use Types Packs/Day Years Used Date Smoking Tobacco: Every Day Cigarettes 0.1 10 Smokeless Tobacco: Never Comments: 5 cigarettes a day Alcohol Use Standard Drinks/Week Comments No 0 (1 standard drink = 0.6 oz pure alcoho l) Sex Assigned at Date Recorded Female 01/14/2020 10:57 AM SLAB PULLER documented as of this encounter Miscellaneous Notes Addendum Note - Suyapa Murray CMA - 10/26/2015 11:09 AM CDT Addended by: SUYAPA MURRAY on: 10/26/2015 11:09 AM Modules accepted: Medications Telephone Encounter - Suyapa Murray CMA - 10/26/2015 11:09 AM CDT Rx called to [facility] Telephone Encounter - Edgar Alfredo [...] Visit Wound Care Luis Camara, [place] [address] [place], [place] [phone] (Wo rk) 01/21/2022 PRE VISIT Gastroenterology Landon Warren, *-*INCOMIN G RECORDS*-* MD Luis Fernando [address] [place] [phone] (Wo rk) 01/21/2022 Office Visit Gastroenterology Juanis Levi [address] [place] [phone] Luis Fernando Miles MD [address] [place] [phone] documented as of this encounter Visit Diagnoses Diagnosis Uncomplicated opioid dependence (H) - Pr imary Opioid type dependence, unspecified documented in this encounter Care Teams Product Representative Relationship Specialty Start Date End Date System, Provider Not In PCP - General Clinic 08/12/14 07/13/16 documented as of this encounter
--- OUTSIDE RECORDS SUMMARY | 2021-12-14 16:27 | XMS_ITS | Encounter Summary ---
:1980 Author Organization [place] Address [address] [facility] [place] [address] Care Team Providers Name Role Phone System, Provider Not In Primary Care Provider Unavailable Reason for Visit Reason Onset Date Comments Erroneous encounter-disregard 08/18/2015 Encounter Details Date Type Department Care Team Description 08/18/2015 Office Visit [facility] Edgar Alfredo NO SHOW ( Primary Dx); Clinic Ashly Gauthier MD ERRONEOUS ENCOUNTER--DISREGARD [address] [place] [address] [place] [phone] Social History Tobacco Use Types Packs/Day Years Used Date Smoking Tobacco: Every Day Cigarettes 0.1 10 Smokeless Tobacco: Never Comments: 5 cigarettes a day Alcohol Use Standard Drinks/Week Comments No 0 (1 standard drink = 0.6 oz pure alcoho l) Sex Assigned at Date Recorded Female 01/14/2020 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 Please disregard. documented in this encounter Plan of Treatment Upcoming Encounters Date Type Specialty Care Team Description 12/20/2021 Office Visit Wound Care Luis Camara, [place] [address] [place], [place] [address] (Wo rk) 01/21/2022 PRE VISIT Gastroenterology Landon Warren, *-*WANDAIN G RECORDS*-* MD Luis Fernando [address] [address] (Wo rk) 01/21/2022 Office Visit Gastroenterology Juanis Levi [address] [place] [phone] Luis Fernando Miles MD [address] [phone] documented as of this encounter Visit Diagnoses Diagnosis NO SHOW - Primary ERRONEOUS ENCOUNTER--DISREGARD documented in this encounter Care Teams Cane Stripper Relationship Specialty Start Date End Date System, Provider Not In PCP - General Clinic 08/12/14 07/13/16 documented as of this encounter
--- OUTSIDE RECORDS SUMMARY | 2021-12-14 16:27 | XMS_ITS | Encounter Summary ---
:1980 Author Organization [place] Address [address] [facility] [place] [address] Care Team Providers Name Role Phone System, Provider Not In Primary Care Provider Unavailable Reason for Visit Reason Onset Date Comments Recheck Medication Erroneous encounter-disregard 01/08/2016 Encounter Details Date Type Department Care Team Description 01/01/2016 Office Visit [facility] Edgar Alfredo ERRONEOUS Clinic Ashly Gauthier MD ENCOUNTER--DISREGARD [address] [place] (Primary Dx) [address] [place] [phone] Social History Tobacco Use Types Packs/Day Years Used Date Smoking Tobacco: Every Day Cigarettes 0.1 10 Smokeless Tobacco: Never Comments: 5 cigarettes a day Alcohol Use Standard Drinks/Week Comments No 0 (1 standard drink = 0.6 oz pure alcoho l) Sex Assigned at Date Recorded Female 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 Please disregard. UP OPERATOR documented in this encounter Plan of Treatment Upcoming Encounters Date Type Specialty Care Team Description 12/20/2021 Office Visit Wound Care Luis Camara DPM [address] [place], [place] [phone] (Wo rk) 01/21/2022 PRE VISIT Gastroenterology Landon Warrne, *-*WANDAIN G RECORDS*-* MD Luis Fernando [address] [phone] (Wo rk) 01/21/2022 Office Visit Gastroenterology Juanis Levi [address] [place] [phone] Luis Fernando Miles MD [address] [phone] documented as of this encounter Visit Diagnoses Diagnosis ERRONEOUS ENCOUNTER--DISREGARD - Primary documented in this encounter Care Teams Manager Export Relationship Specialty Start Date End Date System, Provider Not In PCP - General Clinic 08/12/14 07/13/16 documented as of this encounter
--- OUTSIDE RECORDS SUMMARY | 2021-12-14 16:27 | XMS_ITS | Encounter Summary ---
:1980 Author Organization [place] Address [address] [facility] [place] [address] Care Team Providers Name Role Phone System, Provider Not In Primary Care Provider Unavailable Reason for Visit Reason Comments Recheck Medication Encounter Details Date Type Department Care Team Description 09/28/2015 Office Visit [facility] Edgar Alfredoplic ated opioid dependence (H) (Primary Dx); Clinic Ashly Gauthier MD Major depressive disorder, recurrent epi sode, moderate (H) [address] [place] [phone] Social History Tobacco Use Types Packs/Day Years Used Date Smoking Tobacco: Every Day Cigarettes 0.1 10 Smokeless Tobacco: Never Comments: 5 cigarettes a day Alcohol Use Standard Drinks/Week Comments No 0 (1 standard drink = 0.6 oz pure alcoho l) Sex Assigned at Date Recorded Female 01/14/2020 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 Ybxrrqqb-Ong-Hf-FA ( VITAMINS) 0.8 MG TABS Take 1 [...] visit in 1 MONTH Edgar Alfredo MD [facility] documented in this encounter [...] Visit Wound Care Luis Camara DPM [address] [place] [address] (Wo rk) 01/21/2022 PRE VISIT Gastroenterology Landon Warren, *-*INCOMIN G RECORDS*-* MD Luis Fernando [address] [facility] [address] [place], [place] [phone] (Wo rk) 01/21/2022 Office Visit Gastroenterology Juanis Levi [address] [place] [phone] Luis Fernando Miles MD [address] [facility] [address] [place], [place] [address] documented as of this encounter Procedures Procedure [...] Organization Address City/State/[place] [address] [facility] Building [address] [...] Organization Address City/State/[place] [address] [facility] Building [address] [address] LAB documented in this encounter Visit Diagnoses Diagnosis Uncomplicated opioid dependence (H) - Pr imary Opioid type dependence, unspecified Major depressive disorder, recurrent epi sode, moderate (H) Major depressive disorder, recurrent epi sode, moderate documented in this encounter Care Teams Shampoo Person Relationship Specialty Start Date End Date System, Provider Not In PCP - General Clinic 08/12/14 07/13/16 documented as of this encounter
--- OUTSIDE RECORDS SUMMARY | 2021-12-14 16:27 | XMS_ITS | Encounter Summary ---
:1980 Author Organization [place] Address [address] [facility] [place] [address] Care Team Providers Name Role Phone System, Provider Not In Primary Care Provider Unavailable Encounter Details Date Type Department Care Team Description 06/13/2016 Telephone [facility] Nithya Alfredo MD [place] [address] [place] [address] [place], [place] [address] [phone] [place] [phone] Social History Tobacco Use Types Packs/Day Years Used Date Smoking Tobacco: Every Day Cigarettes 0.1 10 Smokeless Tobacco: Never Comments: 5 cigarettes a day Alcohol Use Standard Drinks/Week Comments No 0 (1 standard drink = 0.6 oz pure alcoho l) Sex Assigned at Date Recorded Female 01/14/2020 10:57 AM PATROL SERGEANT [employer]ER[employer]'S OFFICE documented as of this encounter Miscellaneous Notes Telephone Encounter - Edgar Alfredo MD - 06/13/2016 1:57 PM CDT Subutex denied Suboxone film ordered Appointment 06/17/16 documented in this encounter Plan of Treatment Upcoming Encounters Date Type Specialty Care Team Description 12/20/2021 Office Visit Wound Care Luis Camara DPM [address] [place] [address] (Wo rk) 01/21/2022 PRE VISIT Gastroenterology Landon Warren, *-*WANDAIN G RECORDS*-* MD Luis Fernando 6 [facility] [address] [place], [place] [address] (Wo rk) 01/21/2022 Office Visit Gastroenterology Juanis Levi [address] [place] [address] Luis Fernando Miles MD [address] [place] [phone] documented as of this encounter Visit Diagnoses Not on filedocumented in this encounter Care Teams Paraffiner Relationship Specialty Start Date End Date System, Provider Not In PCP - General Clinic 08/12/14 07/13/16 documented as of this encounter
--- OUTSIDE RECORDS SUMMARY | 2021-12-14 16:27 | XMS_ITS | Encounter Summary ---
:1980 Author Organization [place] Address [address] [facility] [place] [address] Care Team Providers Name Role Phone System, Provider Not In Primary Care Provider Unavailable Reason for Visit Reason Comments Drug Problem Encounter Details Date Type Department Care Team Description 06/17/[address] 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 [place] Board [employer] Data Base Reviewed: YES; [...] Take 1 tablet by mouth daily ??? Fywcusxp-Gnh-Sk-FA ( VITAMINS) 0.8 MG TABS Take 1 [...] Panel 13 Result Value Ref Range Cannabinoids (07-xnd-1-kvkpirv-4-JWR) NDET ng/mL Not Detected Cutoff for a [...] be used for medical purposes only. Order [id number] for confirmation or individual confirmation tests to ehealthtracker. Beta HCG qual IFA urine Result Value Ref Range Beta HCG Qual IFA Urine Negative NEG 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 FOR PLANT HR MANAGER USE OF HIGH RISK MEDICATION High [...] visit in 2 MONTHS Edgar Alfredo MD [facility] documented in this encounter Plan of Treatment Upcoming Encounters Date Type Specialty Care Team Description 12/20/2021 Office Visit Wound Care Luis Camara DPM [address] [place] [address] (Wo rk) 01/21/2022 PRE VISIT Gastroenterology Landon Warren, *-*WANDAIN G RECORDS*-* MD Luis Fernando [address] [place] [phone] (Wo rk) 01/21/2022 Office Visit Gastroenterology Juanis Levi [address] [place] [address] Luis Fernando Miles MD [address] [place] [address] documented as of this encounter Procedures [...] Organization Address City/State/ZIP Code Phon e Number [place], [place] [id number] [place] [address] PRIMARY CARE [facility] [address] [address] [place] LAB (ABNORMAL) Urine Drugs of Abuse Screen Panel 13 (06/17/2016 11:29 AM CDT) Component Value Ref Test Analysis Performed Pathologis t Range Method Time At Signature Cannabinoids Not Detected NDET LAB (80-lnx-4-carboxy- Cutoff for a negative cannabinoid is 50 [...] be used for medical purposes only. Order [id number] for confirmation or individual confirmation tests to ehealthtracker. (A) Specimen Anatomical Collection Method Collection Time Receive d Time (Source) Location / / Volume Laterality Urine specimen 06/17/2016 11:29 7 (specimen) AM CDT 11:30 AM CDT Edgar Alfredo MD LAB - URINE ORDERABLES Performing Organization Address City/State/[place] [address] [facility] Building [address] [place] LAB documented in this encounter Visit Diagnoses Diagnosis Uncomplicated opioid dependence (H) - Pr imary Opioid type dependence, unspecified Major depressive disorder, recurrent epi sode, moderate (H) Major depressive disorder, recurrent epi sode, moderate documented in this encounter Care Teams Central Office Supervisor Relationship Specialty Start Date End Date System, Provider Not In PCP - General Clinic 08/12/14 07/13/16 documented as of this encounter
--- OUTSIDE RECORDS SUMMARY | 2021-12-14 16:27 | XMS_ITS | Encounter Summary ---
:1980 Author Organization [place] Address [address] [facility] [place] [address] Care Team Providers Name Role Phone System, Provider Not In Primary Care Provider Unavailable Reason for Visit Reason Onset Date Comments Refill Request 10/17/2015 Subutex 2mg Encounter Details Date Type Department Care Team Description 10/17/2015 Refill [facility] Edgar Alfredo, Ref ill Request (Subutex Clinic [facility] 2mg ) [address] [place] [address] [place] [phone] (Wo rk) Social History Tobacco Use Types Packs/Day Years Used Date Smoking Tobacco: Every Day Cigarettes 0.1 10 Smokeless Tobacco: Never Comments: 5 cigarettes a day Alcohol Use Standard Drinks/Week Comments No 0 (1 standard drink = 0.6 oz pure alcoho l) Sex Assigned at Date Recorded Female 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/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 documented as of this encounter Miscellaneous [...] # refills: 0 Last Office [facility] with [facility] or [facility] prescribing provider: 09/28/15 Next 5 appointments (look out 90 days) Oct 24, 2015 11:30 AM Return Visit with Edgar Alfredo MD [facility] ([facility] [address] [place] [address] [address] [facility] [phone] Thank you, Mark Roldan Security And Privacy Consultant [facility] documented in this encounter Plan of Treatment Upcoming Encounters Date Type Specialty Care Team Description 12/20/2021 Office Visit Wound Care Luis Camara, [place] [address] [place] [address] (Wo rk) 01/21/2022 PRE VISIT Gastroenterology Landon Warren, *-*INCOMIN G RECORDS*-* MD Luis Fernando [address] [place] [phone] (Wo rk) 01/21/2022 Office Visit Gastroenterology Juanis Levi [address] [place] [phone] Luis Fernando Miles MD [address] [place] [phone] documented as of this encounter Visit Diagnoses Diagnosis Uncomplicated opioid dependence (H) - Pr imary Opioid type dependence, unspecified documented in this encounter Care Teams Appellate Court Judge Relationship Specialty Start Date End Date System, Provider Not In PCP - General Clinic 08/12/14 07/13/16 documented as of this encounter
--- OUTSIDE RECORDS SUMMARY | 2021-12-14 16:27 | XMS_ITS | Encounter Summary ---
:1980 Author Organization [place] Address [address] [facility] [place] [address] Care Team Providers Name Role Phone System, Provider Not In Primary Care Provider Unavailable Reason for Visit Reason Onset Date Comments Recheck Medication Erroneous encounter-disregard 10/24/2015 Encounter Details Date Type Department Care Team Description 10/24/2015 Office Visit [facility] Edgar Alfredo NO SHOW ( Primary Dx) Clinic Ashly Gauthier MD [address] [place] [address] [place] [phone] Social History Tobacco Use Types Packs/Day Years Used Date Smoking Tobacco: Every Day Cigarettes 0.1 10 Smokeless Tobacco: Never Comments: 5 cigarettes a day Alcohol Use Standard Drinks/Week Comments No 0 (1 standard drink = 0.6 oz pure alcoho l) Sex Assigned at Date Recorded Female 01/14/2020 10:57 AM 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 Please disregard. documented in this encounter Plan of Treatment Upcoming Encounters Date Type Specialty Care Team Description 12/20/2021 Office Visit Wound Care Luis Camara, DPC[address]ryn [address] [place] [address] (Wo rk) 01/21/2022 PRE VISIT Gastroenterology Landon Warren, *-*WANDAIN G RECORDS*-* MD Luis Fernando [address] [phone] (Wo rk) 01/21/2022 Office Visit Gastroenterology Juanis Levi [address] [place] [phone] Luis Fernando Miles MD [address] [phone] documented as of this encounter Visit Diagnoses Diagnosis NO SHOW - Primary documented in this encounter Care Teams Investigation Specialist Relationship Specialty Start Date End Date System, Provider Not In PCP - General Clinic 08/12/14 07/13/16 documented as of this encounter
--- OUTSIDE RECORDS SUMMARY | 2021-12-14 16:27 | XMS_ITS | Encounter Summary ---
:1980 Author Organization [place] Address [address] [place] [address] Care Team Providers Name Role Phone System, Provider Not In Primary Care Provider Unavailable Reason for Visit Reason Onset Date Comments No Show Erroneous encounter-disregard 08/14/2015 Encounter Details Date Type Department Care Team Description 08/14/[address] [facility] Edgar Alfredo NO SHOW ( Primary Dx); Clinic Ashly Gauthier MD ERRONEOUS ENCOUNTER--DISREGARD [address] [place] [phone] Social History Tobacco Use Types Packs/Day Years Used Date Smoking Tobacco: Every Day Cigarettes 0.1 10 Smokeless Tobacco: Never Comments: 5 cigarettes a day Alcohol Use Standard Drinks/Week Comments No 0 (1 standard drink = 0.6 oz pure alcoho l) Sex Assigned at Date Recorded Female 01/14/2020 10:57 AM ANIMAL SURGEON documented as of this encounter Progress Notes Edgar Alfredo MD - 08/14/2015 3:18 PM CDT This encounter was opened in error. Please disregard. documented in this encounter Plan of Treatment Upcoming Encounters Date Type Specialty Care Team Description 12/20/2021 Office Visit Wound Care Luis Camara, [place] [address] [place], [place] [phone] (Wo rk) 01/21/2022 PRE VISIT Gastroenterology Landon Warren, *-*INCOMIN G RECORDS*-* MD Luis Fernando [address] [place] [address] (Wo rk) 01/21/2022 Office Visit Gastroenterology Juanis Levi [address] [place] [phone] Luis Fernando Miles MD [address] [place] [phone] documented as of this encounter Visit Diagnoses Diagnosis NO SHOW - Primary ERRONEOUS ENCOUNTER--DISREGARD documented in this encounter Care Teams Double End Production Grinder Relationship Specialty Start Date End Date System, Provider Not In PCP - General Clinic 08/12/14 07/13/16 documented as of this encounter
--- OUTSIDE RECORDS SUMMARY | 2021-12-14 16:27 | XMS_ITS | Encounter Summary ---
:1980 Author Organization [place] Address [address] [facility] [place] [address] Care Team Providers Name Role Phone System, Provider Not In Primary Care Provider Unavailable Reason for Visit Reason Onset Date Comments Patient Request 09/18/2015 Bridge for Subutex Encounter Details Date Type Department Care Team Description 09/18/2015 Telephone [facility] Edgar Alfredo Pat ient Request (Bridge [facility] [place] MD for Subutex) [address] [place] [phone] (Wo rk) Social History Tobacco Use Types Packs/Day Years Used Date Smoking Tobacco: Every Day Cigarettes 0.1 10 Smokeless Tobacco: Never Comments: 5 cigarettes a day Alcohol Use Standard Drinks/Week Comments No 0 (1 standard drink = 0.6 oz pure alcoho l) Sex Assigned at Date Recorded Female 01/14/2020 10:57 AM ITINERANT TEACHER ASSISTANT documented as of this encounter Miscellaneous [...] be reached at: Home number on file [phone] (home) Best Time: Anytime Can we leave a detailed message on this number? YES Call taken on 09/18/2015 at 3:32 PM by Mark Roldan Thank you, Mark Roldan Licensed Practical Nurse Integrated [facility] documented in this encounter Plan of Treatment Upcoming Encounters Date Type Specialty Care Team Description 12/20/2021 Office Visit Wound Care Luis Camara DPM [address] [place] [address] (Wo rk) 01/21/2022 PRE VISIT Gastroenterology Landon Warren, *-*INCOMIN G RECORDS*-* MD Luis Fernando [address] [place] [address] (Wo rk) 01/21/2022 Office Visit Gastroenterology Juanis Levi [address] [place] [phone] Luis Fernando Miles MD [address] [place] [address] documented as of this encounter Visit Diagnoses Diagnosis Uncomplicated opioid dependence (H) - Pr imary Opioid type dependence, unspecified documented in this encounter Care Teams Technical Expert Relationship Specialty Start Date End Date System, Provider Not In PCP - General Clinic 08/12/14 07/13/16 documented as of this encounter
--- OUTSIDE RECORDS SUMMARY | 2021-12-14 16:27 | XMS_ITS | Encounter Summary ---
:1980 Author Organization [place] Address [address] [facility] [place] [address] Care Team Providers Name Role Phone System, Provider Not In Primary Care Provider Unavailable Reason for Visit Reason Onset Date Comments Refill Request 08/14/2015 Subutex 8mg Encounter Details Date Type Department Care Team Description 08/14/2015 Telephone [facility] Edgar Alfredo, Ref ill Request (Subutex Clinic [place] 8mg) [address] [place] [phone] (Wo rk) Social History Tobacco Use Types Packs/Day Years Used Date Smoking Tobacco: Every Day Cigarettes 0.1 10 Smokeless Tobacco: Never Comments: 5 cigarettes a day Alcohol Use Standard Drinks/Week Comments No 0 (1 standard drink = 0.6 oz pure alcoho l) Sex Assigned at Date Recorded Female 01/14/2020 10:57 AM GREEN MARKETER documented as of this encounter Miscellaneous Notes [...] # refills: 0 Last Office Visit with [facility], [facility] or [facility] prescribing provider: 06/22/15 Next 5 appointments (look out 90 days) Sep 12, 2015 10:45 AM Return Visit with Edgar Alfredo MD [facility] Integrated [facility] Care ([facility]) [address] [facility] [phone] Thank you, Mark Roldan Dinkey Engine Operator Integrated [facility] Care documented in this encounter Plan of Treatment Upcoming Encounters Date Type Specialty Care Team Description 12/20/2021 Office Visit Wound Care Luis Camara, [place] [address] [place] [address] (Wo rk) 01/21/2022 PRE VISIT Gastroenterology Landon Warren, *-*WANDAIN G RECORDS*-* MD Luis Fernando [address] [facility] [address] [place] [address] (Wo rk) 01/21/2022 Office Visit Gastroenterology Juanis Levi [address] [place] [address] Luis Fernando Miles MD [address] [place] [address] documented as of this encounter Visit Diagnoses Diagnosis Uncomplicated opioid dependence (H) - Pr imary Opioid type dependence, unspecified documented in this encounter Care Teams Sales Consultant Relationship Specialty Start Date End Date System, Provider Not In PCP - General Clinic 08/12/14 07/13/16 documented as of this encounter
--- OUTSIDE RECORDS SUMMARY | 2021-12-14 16:27 | XMS_ITS | Encounter Summary ---
:1980 Author Organization [place] Address [address] [facility] [place] [address] Care Team Providers Name Role Phone System, Provider Not In Primary Care Provider Unavailable Reason for Visit Reason Onset Date Comments Medication Request 03/12/2016 Bridge for Subutex Encounter Details Date Type Department Care Team Description 03/12/2016 Telephone [facility] Edgar Alfredo, [facility] ication Request Clinic Ashly VÁSQUEZ (Bridge for Subutex ) [address] [place] [place] [phone] (Wo rk) Social History Tobacco Use Types Packs/Day Years Used Date Smoking Tobacco: Every Day Cigarettes 0.1 10 Smokeless Tobacco: Never Comments: 5 cigarettes a day Alcohol Use Standard Drinks/Week Comments No 0 (1 standard drink = 0.6 oz pure alcoho l) Sex Assigned at Date Recorded Female 01/14/2020 10:57 AM BILLBOARD ERECTOR HELPER documented as of this encounter Miscellaneous Notes Telephone Encounter - Edgar Alfredo MD - 03/12/2016 12:50 PM CST Bridge ordered BOARD ERECTOR HELPER Telephone Encounter - Mark Roldan - 03/12/2016 10:13 AM CST Reason for Call: Bridge for Subutex Detailed comments: pt is requesting a bridge until her next appt on 04/09/16 Phone Number Patient can be reached at: Home number on file [phone] (home) Best Time: anytime Can we leave a detailed message on this number? YES Call taken on 03/12/2016 at 10:13 AM by Mark Roldan Thank you, Mark Roldan Ski Lift Mechanic Integrated [facility] BOARD ERECTOR HELPER documented in this encounter Plan of Treatment Upcoming Encounters Date Type Specialty Care Team Description 12/20/2021 Office Visit Wound Care Luis Camara, [place] [address] [place] [address] (Wo rk) 01/21/2022 PRE VISIT Gastroenterology Landon Warren, *-*INCOMIN G RECORDS*-* MD Luis Fernando [address] [place] [phone] (Wo rk) 01/21/2022 Office Visit Gastroenterology Juanis Levi [address] [place] [phone] Luis Fernando Miles MD [address] [place] [address] documented as of this encounter Visit Diagnoses Diagnosis Uncomplicated opioid dependence (H) - Pr imary Opioid type dependence, unspecified documented in this encounter Care Teams Flight Test Data Acquisition Technician Relationship Specialty Start Date End Date System, Provider Not In PCP - General Clinic 08/12/14 07/13/16 documented as of this encounter
--- OUTSIDE RECORDS SUMMARY | 2021-12-14 16:27 | XMS_ITS | Encounter Summary ---
:1980 Author Organization [place] Address [address] [place] [address] Care Team Providers Name Role Phone System, Provider Not In Primary Care Provider Unavailable Reason for Visit Reason Onset Date Comments Medication Request 02/05/2016 Bridge for Subutex 2 mg Encounter Details Date Type Department Care Team Description 02/05/2016 Telephone [facility] Edgar Alfredo, [facility] ication Request Clinic Ashly VÁSQUEZ (Bridge for Subutex [address] [place] mg ) [address] [place] [phone] (Wo rk) Social History Tobacco Use Types Packs/Day Years Used Date Smoking Tobacco: Every Day Cigarettes 0.1 10 Smokeless Tobacco: Never Comments: 5 cigarettes a day Alcohol Use Standard Drinks/Week Comments No 0 (1 standard drink = 0.6 oz pure alcoho l) Sex Assigned at Date Recorded Female 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 Pt can't make her appt for today she has no ride. Pt contact info: [phone] Ok to leave detailed message. Thank you, Mark Roldan [employer] Teacher Integrated Primary Care R SKI ASSEMBLER documented in this encounter Plan of Treatment Upcoming Encounters Date Type Specialty Care Team Description 12/20/2021 Office Visit Wound Care Luis Camara, DPCamryn [address] [place], [place] [phone] (Wo rk) 01/21/2022 PRE VISIT Gastroenterology Landon Warren, *-*INCOMIN G RECORDS*-* MD Luis Fernando [address] [place] [phone] (Wo rk) 01/21/2022 Office Visit Gastroenterology Juanis Levi [address] [place] [phone] Luis Fernando Miles MD [address] [place] [phone] documented as of this encounter Visit Diagnoses Diagnosis Uncomplicated opioid dependence (H) - Pr imary Opioid type dependence, unspecified documented in this encounter Care Teams Kiln Operator Relationship Specialty Start Date End Date System, Provider Not In PCP - General Clinic 08/12/14 07/13/16 documented as of this encounter
--- OUTSIDE RECORDS SUMMARY | 2021-12-14 16:27 | XMS_ITS | Encounter Summary ---
:1980 Author Organization [place] Address [address] [facility] 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 Lupe Lantigua MA Telephone Encounter - Lupe Lantigua CMA - 06/14/2016 9:48 AM CDT changed Subutex Rx to Suboxone instead. Staff called [facility] at [phone] and was informed an Prior Authorization is needed for buprenorphine HCl-naloxone HCl (SUBOXONE) 2-0.5 MG per film 25 Film. Staff called [employer] to Submit PA via phone for buprenorphine HCl- naloxone HCl (SUBOXONE) 2-0.5 MG per film 25 Film. Staff is waiting for a response. [place] Medicaid ID# [id number] NDC# [id number] Pharm NPI# [id number] Pharm Pharm Insurance Phone# Telephone Encounter - Mark Roldan - 06/13/2016 3:41 PM CDT Patient called she would like a call back on the Status of the PA. Pt contact info: [phone] Ok to leave derailed message. Mark Roldan Control System Manager Telephone Encounter - Dora Merchant - 06/13/2016 2:56 PM CDT Fax received from [facility] requesting that PA be re-submitted with pharmacy name, NPI, phone number and fax number. Another form received from pharmacy requesting that PA be submitted via covermymeds. Beatty: [id number] Center Director Lead Teacher placed forms in provider's folder Dora Merchant Control System Manager Telephone Encounter - Sarah Calvert MA - 06/13/2016 1:54 PM CDT Per Insurance PA denied the authorization criteria were not met, documents verifying clear intolerance to naloxonemust be provided for halfway therapy. Routing to provider to review and Advise Sarah Calvert MA June 13, 2016 Telephone Encounter - Mark Roldan - 06/13/2016 12:09 PM CDT PA denied the authorization criteria were not met, documents verifying clear intolerance to naloxonemust be provided for halfway therapy. Center Director Lead Teacher placed form in provider's folder. Mark Roldan Control System Manager Telephone Encounter - Dora Merchant - 06/13/2016 10:32 AM CDT Fax received from pharmacy 06/13/16 requesting an urgent PA. Pt has been out of medication for a while. Insurance phone #: [phone] Dora Merchant Control System Manager Telephone Encounter - Dora Merchant - 06/13/2016 8:23 AM CDT Incoming call from pt requesting a PA for buprenorphine (SUBUTEX) 2 MG. TC's have not received a PA request from the pharmacy. Prior Authorization needed on: 06/13/16 Medication: buprenorphine (SUBUTEX) Dose: 2 MG Insurance Name: [place] Medicaid Insurance Phone: not available Insurance Dora Merchant June 13, 2016 at 8:24 AM documented in this encounter Plan of Treatment Upcoming Encounters Date Type Specialty Care Team Description 12/20/2021 Office Visit Wound Care Luis Camara DPM [address] [place] [address] (Wo rk) 01/21/2022 PRE VISIT Gastroenterology Landon Warren, *-*HEATHER G RECORDS*-* MD Luis Fernando [address] [facility] [address] [place] [address] (Wo rk) 01/21/2022 Office Visit Gastroenterology Juanis Levi [address] [place] [phone] Luis Fernando Miles MD [address] [facility] [address] [place], [place] [address] documented as of this encounter Visit Diagnoses Not on filedocumented in this encounter Care Teams Stock Puller Relationship Specialty Start Date End Date System, Provider Not In PCP - General Clinic 08/12/14 07/13/16 documented as of this encounter
--- OUTSIDE RECORDS SUMMARY | 2021-12-14 16:27 | XMS_ITS | Encounter Summary ---
:1980 Author Organization [place] Address [address] [facility] [address] Care Team Providers Name Role Phone System, Provider Not In Primary Care Provider Unavailable Reason for Visit Reason Onset Date Comments Prior Auth - Medication 10/26/2015 subutex 2 mg Encounter Details Date Type Department Care Team Description 10/26/2015 Telephone [facility] Edgar Alfredo Pri or Auth - Medication Clinic Ashly VÁSQUEZ (subutex 2 mg) [address] [place] [place] [phone] (Wo rk) Social History Tobacco Use Types Packs/Day Years Used Date Smoking Tobacco: Every Day Cigarettes 0.1 10 Smokeless Tobacco: Never Comments: 5 cigarettes a day Alcohol Use Standard Drinks/Week Comments No 0 (1 standard drink = 0.6 oz pure alcoho l) Sex Assigned at Date Recorded Female 01/14/2020 10:57 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 documented in this encounter Plan of Treatment Upcoming Encounters Date Type Specialty Care Team Description 12/20/2021 Office Visit Wound Care Luis Camara, [place] [address] [place] [address] (Wo rk) 01/21/2022 PRE VISIT Gastroenterology Landon Warren, *-*HEATHER G RECORDS*-* MD Luis Fernando [address] [place] [phone] (Wo rk) 01/21/2022 Office Visit Gastroenterology Juanis Levi [address] [place] [phone] Luis Fernando Miles MD [address] [place] [phone] documented as of this encounter Visit Diagnoses Not on filedocumented in this encounter Care Teams Sr. Director Product Management Relationship Specialty Start Date End Date System, Provider Not In PCP - General Clinic 08/12/14 07/13/16 documented as of this encounter
--- OUTSIDE RECORDS SUMMARY | 2021-12-14 16:27 | XMS_ITS | Encounter Summary ---
:1980 Author Organization [place] Address [address] [facility] [place] [address] Care Team Providers Name Role Phone System, Provider Not In Primary Care Provider Unavailable Reason for Visit Reason Onset Date Comments Medication Request 01/01/2016 Bridge for Subutex Encounter Details Date Type Department Care Team Description 01/01/2016 Telephone [facility] Edgar Alfredo, [facility] ication Request Clinic Ashly VÁSQUEZ (Bridge for Subutex) [address] [place] [place] [phone] (Wo rk) Social History Tobacco Use Types Packs/Day Years Used Date Smoking Tobacco: Every Day Cigarettes 0.1 10 Smokeless Tobacco: Never Comments: 5 cigarettes a day Alcohol Use Standard Drinks/Week Comments No 0 (1 standard drink = 0.6 oz pure alcoho l) Sex Assigned at Date Recorded Female 01/14/2020 10:57 AM ABALONE FISHERMAN documented as of this encounter Miscellaneous Notes Telephone Encounter - Edgar Alfredo MD - 01/01/2016 12:39 PM CST Bridge called in Patient notified [facility] Telephone Encounter - Dora Merchant - 01/01/2016 12:05 PM CST Incoming call from pt checking on the status of request below. Thank you, Dora Merchant Group Billing Coordinator [facility] Telephone Encounter - Sherwindave Mark - 01/01/2016 9:16 AM CST Reason for Call: Bridge for Subutex Detailed comments: pt can't make her appt today, its reschedule to 01/07, pt 's requesting a bridge for Subutex Phone Number Patient can be reached at: Home number on file [phone] (home) Best Time: anytime Can we leave a detailed message on this number? YES Call taken on 01/01/2016 at 9:16 AM by Mark Roldan Thank you, Mark Roldan Group Billing Coordinator Integrated [facility] ONE [facility]ERMAN documented in this encounter Plan of Treatment Upcoming Encounters Date Type Specialty Care Team Description 12/20/2021 Office Visit Wound Care Luis Camara, [place] [address] [place] [address] (Wo rk) 01/21/2022 PRE VISIT Gastroenterology Landon Warren, *-*WANDAIN G RECORDS*-* MD Luis Fernando [address] [place] [address] (Wo rk) 01/21/2022 Office Visit Gastroenterology Juanis Levi [address] [place] [phone] Luis Fernando Miles MD [address] [place] [address] [phone] documented as of this encounter Visit Diagnoses Diagnosis Uncomplicated opioid dependence (H) - Pr imary Opioid type dependence, unspecified documented in this encounter Care Teams Sole Splitter Relationship Specialty Start Date End Date System, Provider Not In PCP - General Clinic 08/12/14 07/13/16 documented as of this encounter
--- OUTSIDE RECORDS SUMMARY | 2021-12-14 16:27 | XMS_ITS | Encounter Summary ---
:1980 Author Organization [place] Address [address] [facility] [place] [address] Care Team Providers Name Role Phone System, Provider Not In Primary Care Provider Unavailable Reason for Visit Reason Comments Recheck Medication Encounter Details Date Type Department Care Team Description 04/09/2016 Office Visit [facility] Edgar Alfredo Uncomplic ated opioid dependence (H); Clinic Ashly Gauthier MD Major depressive disorder, recurrent epi sode, moderate (H) [address] [place] [phone] Social History Tobacco Use Types Packs/Day Years Used Date Smoking Tobacco: Every Day Cigarettes 0.1 10 Smokeless Tobacco: Never Comments: 5 cigarettes a day Alcohol Use Standard Drinks/Week Comments No 0 (1 standard drink = 0.6 oz pure alcoho l) Sex Assigned at Date Recorded Female 01/14/2020 10:57 AM SHIPPING ROOM SUPERVISOR documented as of this encounter Last Filed Vital Signs Vital Sign Reading Time Taken Comments Blood Pressure 133/87 04/09/2016 10:36 AM SHIPPING ROOM SUPERVISOR Pulse 87 04/09/2016 10:35 AM SHIPPING ROOM SUPERVISOR Temperature 36.8 ??C (98.2 ??F) 04/09/2016 10:35 AM SHIPPING ROOM SUPERVISOR Respiratory Rate 20 04/09/2016 10:35 AM SHIPPING ROOM SUPERVISOR Oxygen Saturation 94% 04/09/2016 10:35 AM SHIPPING ROOM SUPERVISOR Inhaled Oxygen Concentration - - Weight 83 kg (183 lb) 04/09/2016 10:35 AM SHIPPING ROOM SUPERVISOR Height - - Body Mass Index 29.99 01/07/2013 11:29 AM SHIPPING ROOM SUPERVISOR documented in this encounter Progress Notes [...] been going to recovery meetings:not at all. [place] Board [employer]acy Data Base Reviewed: YES; [...] Take 1 tablet by mouth daily ??? Dzapedqs-Kcm-Qo-FA ( VITAMINS) 0.8 MG TABS Take 1 [...] less. 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 FOR MEDICAL RECEPTION SPECIALIST USE OF HIGH RISK MEDICATION High Risk [...] visit in 2 MONTHS Edgar Alfredo MD [facility] PING ROOM SUPERVISOR documented in this encounter Nursing Notes Sabina [...] not appropriate to perform Sabina Mckay CMA PING ROOM SUPERVISOR documented in this encounter Plan of Treatment Upcoming Encounters Date Type Specialty Care Team Description 12/20/2021 Office Visit Wound Care Luis Camara DPM [address] [place], [place] [phone] (Wo rk) 01/21/2022 PRE VISIT Gastroenterology Landon Warren, *-*WANDAIN G RECORDS*-* MD Luis Fernando [address] [place] [phone] (Wo rk) 01/21/2022 Office Visit Gastroenterology uJanis Levi [address] [place] [phone] Luis Fernando Miles MD [address] [place] [phone] documented as of this encounter Procedures Procedure Name Priority Date/Time Associated Diagnosis Comme nts HEPATIC FUNCTION Routine 04/09/2016 10:50 Uncomplicated opioid Results for this PANEL AM SHIPPING ROOM SUPERVISOR dependence (H) procedure are in the results section. BUPRENORPHINE QUAL Routine 04/09/2016 10:32 Resul ts for this URINE AM SHIPPING ROOM SUPERVISOR procedure are i n the results section. DRUG ABUSE SCREEN Routine 04/09/2016 10:32 Uncomplicated opioi d Results for this (NL, RW) AM SHIPPING ROOM SUPERVISOR dependence (H) procedure are in the results section. documented in this encounter Results Hepatic panel (04/09/2016 10:50 AM SHIPPING ROOM SUPERVISOR) Analysis Performed At Patho logist Time Signature Bilirubin Direct 0.1 0.0 - 0.2 [place] mg/dL [facility] Bilirubin Total 0.4 0.2 - 1.3 [place] mg/dL [facility] Albumin 3.4 3.4 - 5.0 [place] g/dL [facility] Protein Total 7.2 6.8 - 8.8 [place] g/dL [facility] Alkaline 76 40 - 150 [place] Phosphatase U/L [facility] ALT 36 0 - 50 U/L [facility] AST 22 0 - 45 U/L [facility] Specimen Anatomical Collection Method Collection Time Receive d Time (Source) Location / / Volume Laterality Blood specimen 04/09/2016 10:50 7 (specimen) AM SHIPPING ROOM SUPERVISOR 10:51 AM SHIPPING ROOM SUPERVISOR Edgar Alfredo MD LAB - BLOOD ORDERABLES Performing Organization Address City/State/ZIP Code Phon e Number [facility] [address] [place] [address] Drug abuse screen (NL, RW) (04/09/2016 10:32 AM SHIPPING ROOM SUPERVISOR) Component Value Ref Test Analysis Performed Pathologis [...] Urine specimen 04/09/2016 10:32 7 (specimen) AM SHIPPING ROOM SUPERVISOR 10:33 AM SHIPPING ROOM SUPERVISOR Edgar Alfredo MD LAB - URINE ORDERABLES Performing Organization Address [facility] e Number [address] [facility] Buprenorphine Qual Urine (04/09/2016 10:32 AM SHIPPING ROOM SUPERVISOR) [facility] Method Time Signature Buprenorphine Positive [facility] Qual Urine Specimen Anatomical Collection Method Collection Time Receive d Time (Source) Location / / Volume Laterality Urine specimen 04/09/2016 10:32 7 (specimen) AM SHIPPING ROOM SUPERVISOR 10:33 AM SHIPPING ROOM SUPERVISOR Edgar Alfredo MD LAB - URINE ORDERABLES Performing Organization Address [facility] e Number [address] [facility] documented in this encounter Visit Diagnoses Diagnosis Uncomplicated opioid dependence (H) Opioid type dependence, unspecified Major depressive disorder, recurrent epi sode, moderate (H) Major depressive disorder, recurrent epi sode, moderate documented in this encounter Care Teams Tankroom Tender Relationship Specialty Start Date End Date System, Provider Not In PCP - General Clinic 08/12/14 07/13/16 documented as of this encounter
--- OUTSIDE RECORDS SUMMARY | 2021-12-14 16:27 | XMS_ITS | Encounter Summary ---
:1980 Author Organization [place] Address [address] [facility] [place] [address] Care Team Providers Name Role Phone System, Provider Not In Primary Care Provider Unavailable Reason for Visit Reason Comments Recheck Medication Encounter Details Date Type Department Care Team Description 01/08/2016 Office Visit [facility] Edgar Alfredo Uncomplic ated opioid Clinic Ashly Gauthier MD dependence (H) (Primary [address]) [address] [place] [phone] Social History Tobacco Use Types Packs/Day Years Used Date Smoking Tobacco: Every Day Cigarettes 0.1 10 Smokeless Tobacco: Never Comments: 5 cigarettes a day Alcohol Use Standard Drinks/Week Comments No 0 (1 standard drink = 0.6 oz pure alcoho l) Sex Assigned at Date Recorded Female 01/14/2020 10:57 AM IRRIGATIONIST documented as of this encounter Last Filed Vital Signs Vital Sign Reading Time Taken Comments Blood Pressure 126/99 01/08/2016 10:27 AM IRRIGATIONIST Pulse 112 01/08/2016 10:27 AM IRRIGATIONIST Temperature 36.7 ??C (98 ??F) 01/08/2016 10:27 AM IRRIGATIONIST Respiratory Rate 10 01/08/2016 10:27 AM IRRIGATIONIST Oxygen Saturation 99% 01/08/2016 10:27 AM IRRIGATIONIST Inhaled Oxygen Concentration - - Weight 79.8 kg (176 lb) 01/08/2016 10:27 AM IRRIGATIONIST Height - - Body Mass Index 28.84 01/07/2013 11:29 AM IRRIGATIONIST documented in this encounter Progress Notes Edgar [...] DOESN'T CONNECT WITH USERS ANYMORE GOES TO [facility], BIB STUDY DISCUSSED DOSE - NOT READY [...] program has been: ignored. BUT GOES TO [facility] Accompanying Signs & Symptoms: ?? Side Effects: [...] Take 1 tablet by mouth daily ??? Nvbuwqpp-Vlh-Jd-FA ( VITAMINS) 0.8 MG TABS Take 1 [...] Positive 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 FOR GROUP HOME USE OF HIGH RISK MEDICATION High [...] I DON'T DO DRUGS Edgar Alfredo MD [facility] GATIONIST documented in this encounter Plan of Treatment Upcoming Encounters Date Type Specialty Care Team Description 12/20/2021 Office Visit Wound Care Luis Camara, [place] [address] [place] [address] (Wo rk) 01/21/2022 PRE VISIT Gastroenterology Landon Warren, *-*INCOMIN G RECORDS*-* MD Luis Fernando [address] [facility] [address] [place], [place] [phone] (Wo rk) 01/21/2022 Office Visit Gastroenterology Juanis Levi [address] [place] [phone] Luis Fernando Miles MD [address] [facility] [address] [place], [place] [phone] documented as of this encounter Procedures Procedure Name Priority Date/Time Associated Comments Diagnosis BUPRENORPHINE QUAL Routine 01/08/2016 10:24 Resul ts for this URINE AM IRRIGATIONIST procedure are i n the results section. DRUG ABUSE SCREEN (NL, Routine 01/08/2016 10:24 R esults for this RW) AM IRRIGATIONIST procedure are i n the results section. documented in this encounter Results Buprenorphine Qual Urine (01/08/2016 10:24 AM IRRIGATIONIST) Patholo gist Method Time Signature Buprenorphine Positive [facility] Qual Urine Specimen Anatomical Collection Method Collection Time Receive d Time (Source) Location / / Volume Laterality Urine specimen 01/08/2016 10:24 6 (specimen) AM IRRIGATIONIST 10:25 AM IRRIGATIONIST Edgar Alfredo MD LAB - URINE ORDERABLES Performing Organization Address City/State/[place] [address] [facility] Building [address] [facility] [address] [facility] (ABNORMAL) Drug abuse screen (NL, RW) (01/08/2016 10:24 AM IRRIGATIONIST) Component Value Ref Test Analysis Performed Pathologis [...] Urine specimen 01/08/2016 10:24 6 (specimen) AM IRRIGATIONIST 10:25 AM IRRIGATIONIST Edgar Alfredo MD LAB - URINE ORDERABLES Performing Organization Address City/State/[place] [address] [facility] Building [address] [address] [facility] documented in this encounter Visit Diagnoses Diagnosis Uncomplicated opioid dependence (H) - Pr imary Opioid type dependence, unspecified documented in this encounter Care Teams Tool Keeper Relationship Specialty Start Date End Date System, Provider Not In PCP - General Clinic 08/12/14 07/13/16 documented as of this encounter
--- OUTSIDE RECORDS SUMMARY | 2021-12-14 16:27 | XMS_ITS | Encounter Summary ---
:1980 Author Organization [place] Address [address] [facility] [place] [address] Care Team Providers Name Role Phone System, Provider Not In Primary Care Provider Unavailable Reason for Visit Reason Comments Recheck Medication Encounter Details Date Type Department Care Team Description 08/24/2015 Office Visit [facility] Edgar Alfredo dep ressive disorder, recurrent episode, moderate (H) (Primary Dx); Clinic Ashly Gauthier MD Uncomplicated opioid dependence (H) [address] [place] [phone] Social History Tobacco Use Types Packs/Day Years Used Date Smoking Tobacco: Every Day Cigarettes 0.1 10 Smokeless Tobacco: Never Comments: 5 cigarettes a day Alcohol Use Standard Drinks/Week Comments No 0 (1 standard drink = 0.6 oz pure alcoho l) Sex Assigned at Date Recorded Female 01/14/2020 10:57 AM CANDY MAKER HELPER documented as of this encounter Last [...] Take 1 tablet by mouth daily ??? Xtkwpanh-Paw-Zj-FA ( VITAMINS) 0.8 MG TABS Take 1 tablet by mouth daily 30 tablet 6 ??? [DISCONTINUED] VITAMINS PO Take by mouth. No Known Allergies Problem list, Medication list, Allergies, and Medical/Social/Surgical histories reviewed in [facility] andupdated as appropriate. ROS: OBJECTIVE: BP [...] visit in 1 MONTH Edgar Alfredo MD [facility] documented in [...] Visit Wound Care Luis Camara, [place] [address] [place] [address] (Wo rk) 01/21/2022 PRE VISIT Gastroenterology Landon Warren, *-*WANDAIN G RECORDS*-* MD Luis Fernando [address] [address] (Wo rk) 01/21/2022 Office Visit Gastroenterology Juanis Levi [address] [place] [phone] Luis Fernando Miles MD [address] [address] documented as of this encounter Procedures Procedure [...] Buprenorphine Qual Urine (08/24/2015 2:14 PM CDT) [facility] Method Time Signature Buprenorphine Positive [facility] Qual Urine Specimen Anatomical Collection Method Collection Time Receive d Time (Source) Location / / Volume Laterality Urine specimen 08/24/2015 2:14 PM 016 2:19 (specimen) CDT PM CDT Edgar Alfredo MD LAB - URINE ORDERABLES Performing Organization Address City/State/[place] [address] [facility] Building [address] [place] [address] [address] LAB Drug abuse screen (NL, [...] - URINE ORDERABLES Performing Organization Address City/State/[facility] [place] [address] [facility] [address] [facility] documented in this encounter Visit Diagnoses Diagnosis Major depressive disorder, recurrent epi sode, moderate (H) - Primary Major depressive disorder, recurrent epi sode, moderate Uncomplicated opioid dependence (H) Opioid type dependence, unspecified documented in this encounter Care Teams Grain Picker Relationship Specialty Start Date End Date System, Provider Not In PCP - General Clinic 08/12/14 07/13/16 documented as of this encounter
--- OUTSIDE RECORDS SUMMARY | 2021-12-14 16:27 | XMS_ITS | Encounter Summary ---
:1980 Author Organization [place] Address [address] [facility] [place] [address] Care Team Providers Name Role Phone System, Provider Not In Primary Care Provider Unavailable Reason for Visit Reason Onset Date Comments Prior Auth - Medication 08/24/2015 subutex 2 mg tab Encounter Details Date Type Department Care Team Description 08/24/2015 Telephone [facility] Edgar Alfredo Pri or Auth - Medication Clinic Ashly VÁSQUEZ (subutex 2 mg tab) [address] [place] [place] [phone] (Wo rk) Social History Tobacco Use Types Packs/Day Years Used Date Smoking Tobacco: Every Day Cigarettes 0.1 10 Smokeless Tobacco: Never Comments: 5 cigarettes a day Alcohol Use Standard Drinks/Week Comments No 0 (1 standard drink = 0.6 oz pure alcoho l) Sex Assigned at Date Recorded Female 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 faxed to pharmacy Telephone Encounter - Suyapa Rodriguez CMA - 08/24/2015 4:01 PM CDT PA request faxed to [facility], marked URGENT documented in this encounter Plan of Treatment Upcoming Encounters Date Type Specialty Care Team Description 12/20/2021 Office Visit Wound Care Luis Camara, [place] [address] [place] [address] (Wo rk) 01/21/2022 PRE VISIT Gastroenterology Landon Warren, *-*HEATHER G RECORDS*-* MD Luis Fernando [address] [place] [phone] (Wo rk) 01/21/2022 Office Visit Gastroenterology Juanis Levi [address] [place] [phone] Luis Fernando Miles MD [address] [place] [phone] documented as of this encounter Visit Diagnoses Not on filedocumented in this encounter Care Teams Chef Assistant Relationship Specialty Start Date End Date System, Provider Not In PCP - General Clinic 08/12/14 07/13/16 documented as of this encounter
--- OUTSIDE RECORDS SUMMARY | 2021-12-14 16:27 | XMS_ITS | Encounter Summary ---
:1980 Author Organization [place] Address [address] [facility] [place] [address] Care Team Providers Name Role Phone System, Provider Not In Primary Care Provider Unavailable Reason for Visit Reason Onset Date Comments Recheck Medication Erroneous encounter-disregard 09/29/2015 Encounter Details Date Type Department Care Team Description 09/25/2015 Office Visit [facility] Edgar Alfredo ERRONEOUS Clinic Ashly Gauthier MD ENCOUNTER--DISREGARD [address] [place] (Primary Dx) [address] [place] [phone] Social History Tobacco Use Types Packs/Day Years Used Date Smoking Tobacco: Every Day Cigarettes 0.1 10 Smokeless Tobacco: Never Comments: 5 cigarettes a day Alcohol Use Standard Drinks/Week Comments No 0 (1 standard drink = 0.6 oz pure alcoho l) Sex Assigned at Date Recorded Female 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 Please disregard. documented in this encounter Plan of Treatment Upcoming Encounters Date Type Specialty Care Team Description 12/20/2021 Office Visit Wound Care Luis Camara, [place] [address] [place], [place] [phone] (Wo rk) 01/21/2022 PRE VISIT Gastroenterology Landon Warren, *-*WANDAIN G RECORDS*-* MD Luis Fernando [address] [phone] (Wo rk) 01/21/2022 Office Visit Gastroenterology Juanis Levi [address] [place] [phone] Luis Fernando Miles MD [address] [phone] documented as of this encounter Visit Diagnoses Diagnosis ERRONEOUS ENCOUNTER--DISREGARD - Primary documented in this encounter Care Teams Manager General Relationship Specialty Start Date End Date System, Provider Not In PCP - General Clinic 08/12/14 07/13/16 documented as of this encounter
--- OUTSIDE RECORDS SUMMARY | 2021-12-14 16:27 | XMS_ITS | Encounter Summary ---
:1980 Author Organization [place] Address [address] [facility] [place] [address] Care Team Providers Name Role Phone System, Provider Not In Primary Care Provider Unavailable Reason for Visit Reason Comments Recheck Medication Encounter Details Date Type Department Care Team Description 12/04/2015 Office Visit [facility] Edgar Alfredo Uncomplic ated opioid Clinic Ashly Gauthier MD dependence (H) (Primary [address] Dx) [address] [place] [phone] Social History Tobacco Use Types Packs/Day Years Used Date Smoking Tobacco: Every Day Cigarettes 0.1 10 Smokeless Tobacco: Never Comments: 5 cigarettes a day Alcohol Use Standard Drinks/Week Comments No 0 (1 standard drink = 0.6 oz pure alcoho l) Sex Assigned at Date Recorded Female 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 Dqfoswbm-Hlg-Br-FA ( VITAMINS) 0.8 MG TABS Take 1 tablet by mouth daily 30 tablet 6 ??? [DISCONTINUED] VITAMINS PO Take by mouth. No Known Allergies Labs reviewed in [facility] OBJECTIVE: BP 137/81 mmHg Pulse 76 There [...] visit in 1 MONTH Edgar Alfredo MD [facility] [...] Visit Wound Care Luis Camraa DPM [address] [place], [place] [address] (Reinaldo rk) 01/21/2022 PRE VISIT Gastroenterology Landon Warren, *-*HEATHER Barriga RECORDS*-* MD Luis Fernando [address] [facility] [address] [place] [address] (Wo rk) 01/21/2022 Office Visit Gastroenterology Juanis Levi [facility] [place] [phone] Luis Fernando Miles MD [address] [place] [address] [address] [place] [address] documented as of this encounter Procedures Procedure [...] Patholo gist Method Time Signature Buprenorphine Positive [facility] Qual Urine [facility] Specimen Anatomical Collection Method Collection Time Receive d Time (Source) Location / / Volume Laterality Urine specimen 12/04/2015 11:28 6 (specimen) AM CDT 11:29 AM CDT Edgar Alfredo MD LAB - URINE ORDERABLES Performing Organization Address City/State/ZIP Code Phon e Number [place] [phone] [address] [place] [address] Drug abuse screen (NL, RW) (12/04/2015 11:28 AM CDT) Component Value Ref Test Analysis Performed Pathologis t Range Method Time At Signature Methamphetamine Negative [facility] Qual Urine Cutoff for a negative methamphetamine is 1000 ng/mL or le ss. [facility] Cocaine Qual Urine Negative [facility] Cutoff for a negative cocaine is 300 ng/mL or less. [facility] Cannabinoids Qual Negative [facility] Urine Cutoff for a negative cannabinoid is 50 ng/mL or less. [facility] MDMA Qual Urine Negative [facility] Cutoff for a negative MDMA (ecstasy) is 500 ng/mL or less. [facility] Methadone Qual Negative [facility] Urine Cutoff for a negative methadone is 300 ng/mL or less. [facility] Opiates Negative [facility] Qualitative Urine Cutoff for a negative opiate is 300 ng/mL or less. [facility] Benzodiazepine Negative [facility]G [facility] Qual Urine Cutoff for a negative benzodiazepine is 300 ng/mL or less . [facility] Tricyc Anti Qual Negative [facility] Urine Cutoff for a negative tricyclic antidepressant is 1000 ng /mL or less. [facility] Barbiturates Qual [facility] Urine Cutoff for a negative barbituate is 300 ng/mL or less. [facility] PCP Qual Urine Negative [facility] Cutoff for a negative PCP is 25 ng/mL or less. [facility] Amphetamine Qual Negative [facility] Urine Cutoff for a negative amphetamine is 1000 ng/mL or less. [facility] Oxycodone Qual Negative [facility] Urine Cutoff for a negative Oxycodone is 100 ng/mL or less. [facility] Specimen Anatomical Collection Method Collection Time Receive d Time (Source) Location / / Volume Laterality Urine specimen 12/04/2015 11:28 6 (specimen) AM CDT 11:29 AM CDT Edgar Alfredo MD LAB - URINE ORDERABLES Performing Organization Address City/State/ZIP Code Phon e Number [facility] [address] [place] [phone] documented in this encounter Visit Diagnoses Diagnosis Uncomplicated opioid dependence (H) - Pr imary Opioid type dependence, unspecified documented in this encounter Care Teams Blueprint Maker Relationship Specialty Start Date End Date System, Provider Not In PCP - General Clinic 08/12/14 07/13/16 documented as of this encounter
--- OUTSIDE RECORDS SUMMARY | 2021-12-14 16:28 | XMS_ITS | Encounter Summary ---
:1980 Author Organization [place] Address [address] [facility] [place] [address] Care Team Providers Name Role Phone System, Provider Not In Primary Care Provider Unavailable Reason for Visit Reason Comments Recheck Medication Encounter Details Date Type Department Care Team Description 12/26/2014 Office Visit [facility] Edgar Alfredoplic ated opioid Clinic Ashly Gauthier MD dependence (H) (Primary [address] Dx) [address] [place] [address] [place] [phone] Social History Tobacco Use Types Packs/Day Years Used Date Smoking Tobacco: Every Day Cigarettes 0.1 10 Smokeless Tobacco: Never Comments: 5 cigarettes a day Alcohol Use Standard Drinks/Week Comments No 0 (1 standard drink = 0.6 oz pure alcoho l) Sex Assigned at Date Recorded Female 01/14/2020 10:57 AM RADIOLOGIST CHIEF OF BREAST IMAGING documented as of this encounter Last Filed Vital Signs Vital Sign Reading Time Taken Comments Blood Pressure 124/73 12/26/2014 11:19 AM RADIOLOGIST CHIEF OF BREAST IMAGING Pulse 94 12/26/2014 11:19 AM RADIOLOGIST CHIEF OF BREAST IMAGING Temperature - - Respiratory Rate - - [...] Take 1 tablet by mouth daily ??? Mrouqtph-Rmy-Hi-FA ( VITAMINS) 0.8 MG TABS Take 1 [...] in 1 MONTH Edgar Alfredo MD, MD [facility] OLOGIST CHIEF OF BREAST IMAGING documented in this encounter Nursing Notes Suyapa [...] cuff size: regular Suyapa Rodriguez MLT, CMA OLOGIST CHIEF OF BREAST IMAGING documented in this encounter Plan of Treatment Upcoming Encounters Date Type Specialty Care Team Description 12/20/2021 Office Visit Wound Care Luis Camara DPM [address] [place] [address] (Wo rk) 01/21/2022 PRE VISIT Gastroenterology Landon Warren, *-*WANDAIN G RECORDS*-* MD Luis Fernando [address] [facility] [address] [place] [address] (Wo rk) 01/21/2022 Office Visit Gastroenterology Juanis Levi [address] [place] [address] Luis Fernando Miles MD [address] [facility] [address] [place], [place] [phone] documented as of this encounter Procedures Procedure Name Priority Date/Time Associated Diagnosis Comme nts BUPRENORPHINE QUAL Routine 12/26/2014 11:11 Uncomplicated opio id Results for this URINE AM RADIOLOGIST CHIEF OF BREAST IMAGING dependence (H) procedure are in the results section. DRUG ABUSE SCREEN Routine 12/26/2014 11:11 Uncomplicated opioi d Results for this (NL, RW) AM RADIOLOGIST CHIEF OF BREAST IMAGING dependence (H) procedure are in the results section. documented in this encounter Results Buprenorphine Qual Urine (12/26/2014 11:11 AM RADIOLOGIST CHIEF OF BREAST IMAGING) Patholo gist Method Time Signature Buprenorphine Negative [facility] Qual Urine Specimen Anatomical Collection Method Collection Time Receive d Time (Source) Location / / Volume Laterality Urine specimen 12/26/2014 11:11 5 (specimen) AM RADIOLOGIST CHIEF OF BREAST IMAGING 11:16 AM RADIOLOGIST CHIEF OF BREAST IMAGING Edgar Alfredo MD LAB - URINE ORDERABLES Performing Organization Address City/State/[place] [address] [facility] Building [address] [facility] [address] [facility] Drug abuse screen (NL, RW) (12/26/2014 11:11 AM RADIOLOGIST CHIEF OF BREAST IMAGING) Component Value Ref Test Analysis Performed Pathologis [...] Urine specimen 12/26/2014 11:11 5 (specimen) AM RADIOLOGIST CHIEF OF BREAST IMAGING 11:16 AM RADIOLOGIST CHIEF OF BREAST IMAGING Edgar Alfredo MD LAB - URINE ORDERABLES Performing Organization Address City/State/[place] [address] [facility] Building [address] [address] [facility] documented in this encounter Visit Diagnoses Diagnosis Uncomplicated opioid dependence (H) - Pr imary Opioid type dependence, unspecified documented in this encounter Care Teams Qa Internship Relationship Specialty Start Date End Date System, Provider Not In PCP - General Clinic 08/12/14 07/13/16 documented as of this encounter
--- OUTSIDE RECORDS SUMMARY | 2021-12-14 16:28 | XMS_ITS | Encounter Summary ---
:1980 Author Organization [place] Address [address] [facility] [place] [address] Care Team Providers Name Role Phone System, Provider Not In Primary Care Provider Unavailable Encounter Details Date Type Department Care Team Description 04/24/2015 Telephone [facility] Nithya Alfredo MD [place] [address] [place] [address] [place], [place] [address] [phone] [place] [phone] Social History Tobacco Use Types Packs/Day Years Used Date Smoking Tobacco: Every Day Cigarettes 0.1 10 Smokeless Tobacco: Never Comments: 5 cigarettes a day Alcohol Use Standard Drinks/Week Comments No 0 (1 standard drink = 0.6 oz pure alcoho l) Sex Assigned at Date Recorded Female 01/14/2020 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 documented as of this encounter Miscellaneous Notes Addendum Note - Suyapa Murray CMA - 04/24/2015 1:41 PM CHILD WELFARE ASSISTANT Addended by: SUYAPA MURRAY on: 04/24/2015 01:41 PM Modules accepted: Medications D WELFARE ASSISTANT Telephone Encounter - Edgar Alfredo MD - 04/24/2015 12:31 PM CST Bridge ordered D WELFARE ASSISTANT Telephone Encounter - Vivian Spence CMA - 04/24/2015 12:19 PM CST Incoming call from pt requesting a bridge in Subutex pt scheduled 04/30 please send refill to [address] Vivian Spence, [facility] Cigarette Filter Inspector .3s D WELFARE ASSISTANT documented in this encounter Plan of Treatment Upcoming Encounters Date Type Specialty Care Team Description 12/20/2021 Office Visit Wound Care Luis Camara, DPM [address] [place], [place] [phone] (Wo rk) 01/21/2022 PRE VISIT Gastroenterology Landon Warren, *-*INCOMIN G RECORDS*-* MD Luis Fernando [address] [place] [phone] (Wo rk) 01/21/2022 Office Visit Gastroenterology Juanis Levi [address] [place] [address] Luis Fernando Miles MD [address] [place] [phone] documented as of this encounter Visit Diagnoses Diagnosis Uncomplicated opioid dependence (H) - Pr imary Opioid type dependence, unspecified documented in this encounter Care Teams Dialysis Chief Equipment Technician Relationship Specialty Start Date End Date System, Provider Not In PCP - General Clinic 08/12/14 07/13/16 documented as of this encounter
--- OUTSIDE RECORDS SUMMARY | 2021-12-14 16:28 | XMS_ITS | Encounter Summary ---
:1980 Author Organization [place] Address [address] [facility] [place] [address] Care Team Providers Name Role Phone System, Provider Not In Primary Care Provider Unavailable Reason for Visit Reason Onset Date Comments Medication Request 07/19/2015 Encounter Details Date Type Department Care Team Description 07/19/2015 Telephone [facility] Edgar Alfredo, [facility] ication Request Clinic Ashly VÁSQUEZ ([phone]) [address] [place] [address] [place] [phone] (Wo rk) Social History Tobacco Use Types Packs/Day Years Used Date Smoking Tobacco: Every Day Cigarettes 0.1 10 Smokeless Tobacco: Never Comments: 5 cigarettes a day Alcohol Use Standard Drinks/Week Comments No 0 (1 standard drink = 0.6 oz pure alcoho l) Sex Assigned at Date Recorded Female 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 Please follow up. Pt contact info: [phone] (Ok to leave detailed message, per pt) Thank you, Dora Merchant Personal Lines Advisor [facility] documented in this encounter Plan of Treatment Upcoming Encounters Date Type Specialty Care Team Description 12/20/2021 Office Visit Wound Care Luis Camara, [place] [address] [place] [address] (Wo rk) 01/21/2022 PRE VISIT Gastroenterology Landon Warren, *-*INCOMIN G RECORDS*-* MD Luis Fernando [address] [place] [address] (Wo rk) 01/21/2022 Office Visit Gastroenterology Juanis Levi [address] [place] [phone] Luis Fernando Miles MD [address] [place] [address] documented as of this encounter Visit Diagnoses Diagnosis Uncomplicated opioid dependence (H) - Pr imary Opioid type dependence, unspecified documented in this encounter Care Teams Blue Prints Trimmer Relationship Specialty Start Date End Date System, Provider Not In PCP - General Clinic 08/12/14 07/13/16 documented as of this encounter
--- OUTSIDE RECORDS SUMMARY | 2021-12-14 16:28 | XMS_ITS | Encounter Summary ---
:1980 Author Organization [place] Address [address] [facility] [place] [address] Care Team Providers Name Role Phone System, Provider Not In Primary Care Provider Unavailable Reason for Visit Reason Onset Date Comments Recheck Medication Erroneous encounter-disregard 05/07/2015 Encounter Details Date Type Department Care Team Description 05/01/2015 Office Visit [facility] Edgar Alfredo ERRONEOUS Clinic Ashly Gauthier MD ENCOUNTER--DISREGARD [address] [place] (Primary Dx) [address] [place] [phone] Social History Tobacco Use Types Packs/Day Years Used Date Smoking Tobacco: Every Day Cigarettes 0.1 10 Smokeless Tobacco: Never Comments: 5 cigarettes a day Alcohol Use Standard Drinks/Week Comments No 0 (1 standard drink = 0.6 oz pure alcoho l) Sex Assigned at Date Recorded Female 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 Please disregard. documented in this encounter Plan of Treatment Upcoming Encounters Date Type Specialty Care Team Description 12/20/2021 Office Visit Wound Care Luis Camara, [place] [address] [place], [place] [phone] (Wo rk) 01/21/2022 PRE VISIT Gastroenterology Landon Warren, *-*INCOMIN G RECORDS*-* MD Luis Fernando [address] [place] [address] (Wo rk) 01/21/2022 Office Visit Gastroenterology Juanis Levi [address] [place] [phone] Luis Fernando Miles MD [address] [phone] documented as of this encounter Visit Diagnoses Diagnosis ERRONEOUS ENCOUNTER--DISREGARD - Primary documented in this encounter Care Teams Data Communications Software Consultant Relationship Specialty Start Date End Date System, Provider Not In PCP - General Clinic 08/12/14 07/13/16 documented as of this encounter
--- OUTSIDE RECORDS SUMMARY | 2021-12-14 16:28 | XMS_ITS | Encounter Summary ---
:1980 Author Organization [place] Address [address] [place] [address] Care Team Providers Name Role Phone System, Provider Not In Primary Care Provider Unavailable Reason for Visit Reason Onset Date Comments Refill Request 06/12/2015 Bridge needed for giraldo bx Encounter Details Date Type Department Care Team Description 06/12/2015 Telephone [facility] Edgar Alfredo, Ref ill Request (Bridge Clinic Jessamine MD needed for subx ) [address] [place] [address] [place] [phone] (Wo rk) Social History Tobacco Use Types Packs/Day Years Used Date Smoking Tobacco: Every Day Cigarettes 0.1 10 Smokeless Tobacco: Never Comments: 5 cigarettes a day Alcohol Use Standard Drinks/Week Comments No 0 (1 standard drink = 0.6 oz pure alcoho l) Sex Assigned at Date Recorded Female 01/14/2020 10:57 AM 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 Please follow up. Pt contact info: [phone] Thank you, Dora Merchant [facility] documented in this encounter Plan of Treatment Upcoming Encounters Date Type Specialty Care Team Description 12/20/2021 Office Visit Wound Care Luis Camara, [place] [address] [place] [address] (Wo rk) 01/21/2022 PRE VISIT Gastroenterology Landon Warren, *-*INCOMIN G RECORDS*-* MD Luis Fernando [address] [place] [address] (Wo rk) 01/21/2022 Office Visit Gastroenterology Juanis Levi [address] [place] [address] Luis Fernando Miles MD [address] [place] [phone] documented as of this encounter Visit Diagnoses Diagnosis Uncomplicated opioid dependence (H) - Pr imary Opioid type dependence, unspecified documented in this encounter Care Teams Community Service Specialist Relationship Specialty Start Date End Date System, Provider Not In PCP - General Clinic 08/12/14 07/13/16 documented as of this encounter
--- OUTSIDE RECORDS SUMMARY | 2021-12-14 16:28 | XMS_ITS | Encounter Summary ---
:1980 Author Organization [place] Address [address] [facility] [place] [address] Care Team Providers Name Role Phone System, Provider Not In Primary Care Provider Unavailable Reason for Visit Reason Onset Date Comments Medication Request 12/19/2014 medication bridge Encounter Details Date Type Department Care Team Description 12/19/2014 Telephone [facility] Edgar Alfredo, [facility] ication Request Clinic Ashly VÁSQUEZ (medication bridge) [address] [place] [address] [place] [phone] (Wo rk) Social History Tobacco Use Types Packs/Day Years Used Date Smoking Tobacco: Every Day Cigarettes 0.1 10 Smokeless Tobacco: Never Comments: 5 cigarettes a day Alcohol Use Standard Drinks/Week Comments No 0 (1 standard drink = 0.6 oz pure alcoho l) Sex Assigned at Date Recorded Female 01/14/2020 10: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 She is requesting a call back. Nora Scott Team [employer] Registrar NE ELECTRONICS TECHNICIAN Telephone Encounter - Shayy Boles - 12/19/2014 3:41 PM CST Incoming call from patient requesting a bridge for her subutex medication until her next apt on 12/26/14. Patient can be reached at [phone] with any questions Shayy Boles Team Elementary School Registrar NE ELECTRONICS TECHNICIAN documented in this encounter Plan of Treatment Upcoming Encounters Date Type Specialty Care Team Description 12/20/2021 Office Visit Wound Care Luis Camara, [place] [address] [place] [address] (Wo rk) 01/21/2022 PRE VISIT Gastroenterology Landon Warren, *-*INCOMIN G RECORDS*-* MD Luis Fernando [address] [place] [address] (Wo rk) 01/21/2022 Office Visit Gastroenterology Juanis Levi [address] [place] [phone] Luis Fernando Miles MD [address] [place] [phone] documented as of this encounter Visit Diagnoses Diagnosis Uncomplicated opioid dependence (H) - Pr imary Opioid type dependence, unspecified documented in this encounter Care Teams Phd Internship Relationship Specialty Start Date End Date System, Provider Not In PCP - General Clinic 08/12/14 07/13/16 documented as of this encounter
--- OUTSIDE RECORDS SUMMARY | 2021-12-14 16:28 | XMS_ITS | Encounter Summary ---
:1980 Author Organization [place] Address [address] [place] [address] Care Team Providers Name Role Phone System, Provider Not In Primary Care Provider Unavailable Reason for Visit Reason Onset Date Comments Recheck Medication Erroneous encounter-disregard 04/28/2015 Encounter Details Date Type Department Care Team Description 04/24/2015 Office Visit [facility] Edgar Alfredo NO SHOW ( Primary Dx); Clinic Ashly Gauthier MD ERRONEOUS ENCOUNTER--DISREGARD [address] [place] [address] [place] [phone] Social History Tobacco Use Types Packs/Day Years Used Date Smoking Tobacco: Every Day Cigarettes 0.1 10 Smokeless Tobacco: Never Comments: 5 cigarettes a day Alcohol Use Standard Drinks/Week Comments No 0 (1 standard drink = 0.6 oz pure alcoho l) Sex Assigned at Date Recorded Female 01/14/2020 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 EXECUTIVE documented as of this encounter Progress Notes Edgar Alfredo MD - 04/28/2015 10:05 PM CST This encounter was opened in error. Please disregard. NISTRATIVE EXECUTIVE documented in this encounter Plan of Treatment Upcoming Encounters Date Type Specialty Care Team Description 12/20/2021 Office Visit Wound Care Luis Camara, [place] [address] [place], [place] [phone] (Wo rk) 01/21/2022 PRE VISIT Gastroenterology Landon Warren, *-*WANDAIN G RECORDS*-* MD Luis Fernando [address] [place] [address] (Wo rk) 01/21/2022 Office Visit Gastroenterology Juanis Levi [address] [place] [phone] Luis Fernando Miles MD [address] [place] [phone] documented as of this encounter Visit Diagnoses Diagnosis NO SHOW - Primary ERRONEOUS ENCOUNTER--DISREGARD documented in this encounter Care Teams Data Visualization Developer Relationship Specialty Start Date End Date System, Provider Not In PCP - General Clinic 08/12/14 07/13/16 documented as of this encounter
--- OUTSIDE RECORDS SUMMARY | 2021-12-14 16:28 | XMS_ITS | Encounter Summary ---
:1980 Author Organization [place] Address [address] [place] [address] Care Team Providers Name Role Phone System, Provider Not In Primary Care Provider Unavailable Reason for Visit Reason Onset Date Comments Call Back 02/13/2015 Encounter Details Date Type Department Care Team Description 02/13/[address] [facility] Nithya Alfredo MD Call Back [place] [address] [facility] [address] [place], [place] [address] [phone] [place] [phone] Social History Tobacco Use Types Packs/Day Years Used Date Smoking Tobacco: Every Day Cigarettes 0.1 10 Smokeless Tobacco: Never Comments: 5 cigarettes a day Alcohol Use Standard Drinks/Week Comments No 0 (1 standard drink = 0.6 oz pure alcoho l) Sex Assigned at Date Recorded Female 01/14/2020 10:57 AM CHUTE TENDER documented as of this encounter Miscellaneous Notes Addendum Note - Suyapa Murray CMA - 02/16/2015 9:57 AM CHUTE TENDER Addended by: SUYAPA MURRAY on: 02/16/2015 09:57 AM Modules accepted: Orders, Medications E TENDER Telephone Encounter - Suyapa Murray CMA - 02/13/2015 2:34 PM CST Talked to patient, made appt for 03/02 at 3pm, I will called in Rx on . Told she needs to make this last until her next visit. E TENDER Telephone Encounter - Suyapa Murray CMA - 02/13/2015 1:27 PM CST Response from Dr. Alfredo: OK to call in a bridge until 03/02; Subutex 8 mg #11, 1.5 per day. Needs to make this last until 03/02 as we do not replace lost meds Left VM message for pt to call me back. Suyapa Murray, BRADLY, DON E TENDER Telephone Encounter - Suyapa Murray CMA - 02/13/2015 11:29 AM CHUTE TENDER Message E-mailed to Dr. Alfredo, awaiting response: Patient called, will run out of meds by 02/20/15, should have enough to 02/23/15, she doesn't know why she's short, baby still in Hospital, so been going there a lot. No appt yet, first available . 03/02 (just one slot at the moment). Do you want to call in a bridge or squeeze her in somewhere? E TENDER Addendum Note - Nora Scott - 02/13/2015 10:45 AM CHUTE TENDER Addended by: NORA SCOTT on: 02/13/2015 10:45 AM Modules accepted: Orders E TENDER Telephone Encounter - Nora Scott - 02/13/2015 10:33 AM CST Pt returned call, pt is requesting to see on 02/20/15 because she states she will be out of medication by then. Lining Finisher stated was full that day, but race and sports book writer would send a message over to to see when he can see the patient and if he's willing to do a bridge of medication until that day. Pt states if a bridge is called in she would like to use the [facility] in [place], [place]. Pt can be reached at [phone]. Nora Scott Team Shop And Alteration Tailor E TENDER Telephone Encounter - Nora Scott - 02/13/2015 10:25 AM CST Pt called and LVM on 02/09/15 requesting a call back from 's nurse. Lining Finisher attempted to call patient back on 02/13/15 to find out more details, but no answer. LVM asking patient to call the clinic back with any questions she may have. Nora Scott Team Shop And Alteration Tailor E TENDER documented in this encounter Plan of Treatment Upcoming Encounters Date Type Specialty Care Team Description 12/20/2021 Office Visit Wound Care Luis Camara, [place] [address] [place], [place] [phone] (Wo rk) 01/21/2022 PRE VISIT Gastroenterology Landon Warren, *-*HEATHER G RECORDS*-* MD Luis Fernando [address] [place] [phone] (Wo rk) 01/21/2022 Office Visit Gastroenterology Juanis Levi [address] [place] [phone] Luis Fernando Miles MD [address] [place] [phone] documented as of this encounter Visit Diagnoses Diagnosis Uncomplicated opioid dependence (H) - Pr imary Opioid type dependence, unspecified documented in this encounter Care Teams Steel Box Toe Inserter Relationship Specialty Start Date End Date System, Provider Not In PCP - General Clinic 08/12/14 07/13/16 documented as of this encounter
--- OUTSIDE RECORDS SUMMARY | 2021-12-14 16:28 | XMS_ITS | Encounter Summary ---
:1980 Author Organization [place] Address [address] [facility] [place] [address] Care Team Providers Name Role Phone System, Provider Not In Primary Care Provider Unavailable Reason for Visit Reason Comments Recheck Medication Encounter Details Date Type Department Care Team Description 03/02/2015 Office Visit [facility] Edgar Alfredo Uncomplic ated opioid Clinic Ashly Gauthier MD dependence (H) (Primary [address] Dx) [address] [place] [address] [place] [phone] Social History Tobacco Use Types Packs/Day Years Used Date Smoking Tobacco: Every Day Cigarettes 0.1 10 Smokeless Tobacco: Never Comments: 5 cigarettes a day Alcohol Use Standard Drinks/Week Comments No 0 (1 standard drink = 0.6 oz pure alcoho l) Sex Assigned at Date Recorded Female 01/14/2020 10:57 AM MAMMOGRAPHY TECHNICIAN documented as of this encounter Last Filed Vital Signs Vital Sign Reading Time Taken Comments Blood Pressure 133/87 03/02/2015 3:15 PM MAMMOGRAPHY TECHNICIAN Pulse 86 03/02/2015 3:15 PM MAMMOGRAPHY TECHNICIAN Temperature - - Respiratory Rate - [...] health issues: Suboxone followup Child discharged from [facility] now at home On subutex: her [...] Take 1 tablet by mouth daily ??? Epmvygjf-Rvo-Xw-FA ( VITAMINS) 0.8 MG TABS Take 1 [...] NECESSARY Edgar Alfredo M.D. Edgar Alfredo MD [facility] OGRAPHY TECHNICIAN documented in this encounter Nursing Notes [...] using cuff size: catalino Rodriguez MLT, CMA OGRAPHY TECHNICIAN documented in this encounter Plan of Treatment Upcoming Encounters Date Type Specialty Care Team Description 12/20/2021 Office Visit Wound Care Luis Camara DPM [address] [place] [address] (Wo rk) 01/21/2022 PRE VISIT Gastroenterology Landon Warren, *-*HEATHER G RECORDS*-* MD Luis Fernando [address] [address] (Wo rk) 01/21/2022 Office Visit Gastroenterology Juanis Levi [address] [place] [phone] Luis Fernando Miles MD [address] [facility] [address] [place], [place] [address] documented as of this encounter Procedures Procedure Name Priority Date/Time Associated Diagnosis Comme nts BUPRENORPHINE QUAL Routine 03/02/2015 2:59 Uncomplicated opioi d Results for this URINE PM MAMMOGRAPHY TECHNICIAN dependence (H) procedure are in the results section. DRUG ABUSE SCREEN Routine 03/02/2015 2:59 Uncomplicated opioid Results for this (NL, RW) PM MAMMOGRAPHY TECHNICIAN dependence (H) procedure are in the results section. documented in this encounter Results Buprenorphine Qual Urine (03/02/2015 2:59 PM MAMMOGRAPHY TECHNICIAN) Patholo gist Method Time Signature Buprenorphine Positive [facility] LAB Qual Urine Specimen Anatomical Collection Method Collection Time Receive d Time (Source) Location / / Volume Laterality Urine specimen 03/02/2015 2:59 PM 016 3:05 (specimen) MAMMOGRAPHY TECHNICIAN PM MAMMOGRAPHY TECHNICIAN dEgar Alfredo MD LAB - URINE ORDERABLES Performing Organization Address City/State/[place] [address] [facility] Building [address] [facility] [address] [facility] LAB Drug abuse screen (NL, RW) (03/02/2015 2:59 PM MAMMOGRAPHY TECHNICIAN) Component Value Ref Test Analysis Performed [...] specimen 03/02/2015 2:59 PM 016 3:05 (specimen) MAMMOGRAPHY TECHNICIAN PM MAMMOGRAPHY TECHNICIAN Edgar Alfredo MD LAB - URINE ORDERABLES Performing Organization Address City/State/[place] [address] [facility] [address] [address] [facility] LAB documented in this encounter Visit Diagnoses Diagnosis Uncomplicated opioid dependence (H) - Pr imary Opioid type dependence, unspecified documented in this encounter Care Teams Roundhouse Supervisor Relationship Specialty Start Date End Date System, Provider Not In PCP - General Clinic 08/12/14 07/13/16 documented as of this encounter
--- OUTSIDE RECORDS SUMMARY | 2021-12-14 16:28 | XMS_ITS | Encounter Summary ---
:1980 Author Organization [place] Address [address] [facility] [place] [address] Care Team Providers Name Role Phone System, Provider Not In Primary Care Provider Unavailable Reason for Visit Auth/Cert Specialty Diagnoses / Procedures Referred By Contact Refer red To Contact laminating machine feeder Diagnoses Supervision of high-risk Rh Labor [facility] Del[facility] [address] [place], [place] [address] Phone: Fax: Referral ID Status Reason Start Date Expiration Date Visits Requ ested Visits Authorized [id number] 1 1 Encounter Details Date Type Department Care Team Description 07/21/2015 Hospital Encounter [facility] Deirdre Gallardo, Birthplace [address] [facility] [place], [place] [address] [facility] [address] [facility] [address] [place] [address] (Wo rk) Social History Tobacco Use Types Packs/Day Years Used Date Smoking Tobacco: Every Day Cigarettes 0.1 10 Smokeless Tobacco: Never Comments: 5 cigarettes a day Alcohol Use Standard Drinks/Week Comments No 0 (1 standard drink = 0.6 oz pure alcoho l) Sex Assigned at Date Recorded Female 01/14/2020 10:57 AM RN ENDOSCOPY documented as of this encounter Last Filed [...] Reach out to friends, family, clergy and [facility] care providers. You don't have to handle [...] by 30 tablet 6 12/10/2012 08/30/19 17 Rtnosurj-Imx-Pa-FA mouth daily ( VITAMINS) 0.8 MG TABSIndications: [...] Dr. Verbalized understanding. Allquestions were answered by marketing copywriter. Given footprints and photo card. Pt's family [...] EM#[id number] Name: STEPHANI MCCORMICK MRN: [id number] Account: [id number] : 1980 Delivery Date: 07/21/2015 Document: [id number] Provider Notification - Lisa Trevino RN - [...] RN - 07/21/2015 6:13 PM CDT 07/21/15 4101 Provider Notification Provider Name/Title Dr Trujillo Method [...] Visit Wound Care Luis Camara DPM [address] [place], [place] [address] (Wo rk) 01/21/2022 PRE VISIT Gastroenterology Landon Warren, *-*HEATHER Barriga RECORDS*-* MD Luis Fernando 6 [facility] 2[address] [place], [place] [address] (Wo rk) 01/21/2022 Office Visit Gastroenterology Juanis Levi formerly [facility] [place] [address] Luis Fernando Miles MD 6 [facility] [place] [address] Pending Results Name Type Priority Associated Diagnoses [...] CDT) P athologist Signature Cocaine Quant 173 [facility] Comment: Unit: ng/ml Benzoylecgonine Qntu 60,354 [facility] Comment: Unit: ng/ml (Note) Analysis for cocaine and its primary met abolite, benzoylecgonine, is performed by gas chr omatography with mass spectrometry (GC/MS). Results are r eported to the limit of quantitation of the assay. Analysis performed by [employer] [place] [address] Specimen Anatomical Collection Method Collection Time Receive d Time (Source) Location / / Volume Laterality 07/21/2015 10:45 07/22/2015 PM CDT 12:20 AM CDT Ray Trujillo MD LAB - URINE ORDERABLES Performing Organization Address City/[facility]/ZIP [facility] Phon e Number M [facility] [address] [place], [place] [address] [facility] [address] [place], [place] [address], [facility] [phone] (ABNORMAL) Drug abuse scrn 7 UR (/) (RH, SH, UR) (07/21/2015 10:45 PM CDT) Component Value Ref Test Analysis Performed At [facility] Range Method Time Signature Amphetamine Qual Negative NEG [place] Urine Cutoff for a negative amphetamine is 500 ng/mL or less. [facility] Cannabinoids Negative NEG [place] Qual Urine Cutoff for a negative cannabinoid is 50 ng/mL or less. [facility] Cocaine Qual Positive, sent NEG [place] Urine to [facility] [facility] (A) Opiates Negative NEG [place] Qualitative Cutoff for a negative opiate is 300 ng/mL or less. [facility] Pcp Qual Urine Negative [facility]G [facility] Cutoff for a negative PCP is 25 ng/mL or less. [facility] Specimen Anatomical Collection Method Collection Time Receive d Time (Source) Location / / Volume Laterality Urine specimen URINE SPECIMEN 07/21/2015 10:45 016 (specimen) OBTAINED BY CLEAN PM CDT 11:48 PM C DT CATCH PROCEDURE / Unknown Ray Trujillo MD LAB - URINE ORDERABLES Performing Organization Address City/[facility]/ZIP Code Phon e Number M [facility] [address] [place], [place] [address] [facility] [address] [place], [place] [address] [facility] [phone] Surgical Path Exam (07/21/2015 7:36 PM CDT) Component Value Ref Test Analysis Performed At [facility] gist Range Method Time Signature Copath Report Patient Name: STEPHANI KING MR#: [id number] Specimen #: [id number] Collected: 07/21/2015 Received: 07/24/2015 Reported: 07/31/2015 11:48 [...] ??Because of the clinical history, the medical customer service representative's office was elaine jenkins 07/31/15 at 11:34AM [...] 15 cm long three vessel cord is yard jockey d at the abdominal wall. ??The cord [...] only. GROSS MEASUREMENTS: Round-rump length: 17 cm [place]-heel length: 23 cm Head circumference: 16.3 cm [...] identified. No ret roplacental hematoma are identified. ??Smokehouse Worker sections are submi tted in 3 blocks. MICROSCOPIC: A: No microscopic performed. ??Per clinical request, gross e xternal exam only. B: There are patchy areas of perimembraneous degenerative ch guillermina. ??There is meconium staining. ??The placental villi appear edematous . The placenta shows no evidence of infarction, villitis, or obvio us vasculopathy. CPT Codes: A: 32850-YU, SOH B: 71612-VH3 TESTING LAB LOCATION: [address] ??[address] COLLECTION SITE: Client: [facility] Location: RHOB (R) Specimen Anatomical [...] dilated cervix at 8 cm. ??Fetus is assisted through the lower uterine segmen t and [...] dilated cervix at 8 cm. Fetus is assisted through the lower uterine segmen t and into the dilated cervical canal. Fetus is in breech prese ntation. Cardiac activity measures 188 beats per minute. VERNON BARRY MD Ray Trujillo MD [facility] [place] ORDERABLES Blood component (07/21/2015 6:32 PM CDT) [facility] Method Time Signature Unit Number [id number] [facility] Blood Red Blood [place] Component Cells [facility]GE Type Leukocyte HOSPITAL Reduced Division 00 [facility] Status of No longer [place] Unit available [facility] 07/25/2015 HOSPITAL 0300 Blood Product [id number] [facility] Unit Status RET [facility] Specimen Anatomical Collection Method Collection Time Receive d Time (Source) Location / / Volume Laterality 07/21/2015 6:32 PM 6 6:42 CDT PM CDT Ray Trujillo MD LABORATORY Performing Organization Address City/State/ZIP Code Phon e Number M [facility] [address] [place], [place] [address] [facility] [address] [place], [place] [address] [place] [address] HIV Antigen Antibody Combo (07/21/2015 6:32 PM CDT) [facility] Method Time Signature HIV Antigen Nonreactive NR [facility] Antibody HIV-1 p24 Ag & HIV-1/HIV-2 Ab Not Detected [facility] Combo [facility] Specimen Anatomical Collection Method Collection Time Receive d Time (Source) Location / / Volume Laterality Blood specimen 07/21/2015 6:32 PM 016 6:42 (specimen) CDT PM CDT Ray Trujillo MD LAB - BLOOD ORDERABLES Performing Organization Address City/State/ZIP Code Phon e Number [facility] [address] [place] [address] [facility] Anti Treponema (07/21/2015 6:32 PM CDT) Analysis Performed At [facility] logist Time Signature Treponema Negative NEG [facility] MEDICAL Antibody CENTER [place] Specimen Anatomical Collection Method Collection Time Receive d Time (Source) Location / / Volume Laterality Blood specimen 07/21/2015 6:32 PM 016 6:42 (specimen) CDT PM CDT Ray Trujillo MD LAB - BLOOD ORDERABLES Performing Organization Address City/State/ZIP Code Phon e Number [facility] [address] [place] [address] [place] Rubella Antibody IgG Quantitative (07/21/2015 6:32 PM CDT) Analysis Performed At Patho logist Time Signature Rubella Antibody 7 IU/mL [facility] IgG [facility] Comment: Negative Reference Range: ?? Unvaccinated [...] Phon e Number [facility] [address] [place] [address] [place] (ABNORMAL) Hemoglobin (07/21/2015 6:32 PM CDT) P athologist Signature Hemoglobin 10.7 (L) 11.7 - 15.7 [place] g/dL [facility] Specimen Anatomical Collection Method Collection Time Receive d Time (Source) Location / / Volume Laterality Blood specimen 07/21/2015 6:32 PM 016 6:42 (specimen) CDT PM CDT Ray Trujillo MD LAB - BLOOD ORDERABLES Performing Organization Address City/State/ZIP Code Phon e Number M [facility] [address] [place] [address] [facility] [address] [phone] ABO/Rh type and screen (07/21/2015 6:32 PM CDT) Patholo gist Method Time Signature Units Ordered 1 [facility] ABO B [facility] RH(D) Pos [facility] Antibody Neg [place] Screen [facility] Test Valid [facility] Only At [facility] Specimen 07/24/2015 [place] Expires [facility] Specimen Anatomical Collection Method Collection Time Receive d Time (Source) Location / / Volume Laterality Blood specimen 07/21/2015 6:32 PM 016 6:42 (specimen) CDT PM CDT Ray Trujillo MD LAB - BLOOD BANK TEST ORDER Performing Organization Address City/State/ZIP Code Phon e Number M [facility] [address] [place], [place] [address] [facility] [address] [place], [place] [address] [facility] [phone] documented in this encounter Visit Diagnoses Diagnosis [...] bolus documented in this encounter Care Teams Parachute Manufacturing Supervisor Relationship Specialty Start Date End Date System, Provider Not In PCP - General Clinic 08/12/14 07/13/16 documented as of this encounter
--- OUTSIDE RECORDS SUMMARY | 2021-12-14 16:28 | XMS_ITS | Encounter Summary ---
:1980 Author Organization [place] Address [address] [facility] [place] [address] Care Team Providers Name Role Phone System, Provider Not In Primary Care Provider Unavailable Reason for Visit Reason Onset Date Comments Prior Auth - Medication 05/17/2015 subutex 8 mg Encounter Details Date Type Department Care Team Description 05/17/2015 Telephone [facility] Edgar Alfredo Pri or Auth - Medication Clinic Ashly VÁSQUEZ (subutex 8 mg) [address] [place] [address] [place] [phone] (Wo rk) Social History Tobacco Use Types Packs/Day Years Used Date Smoking Tobacco: Every Day Cigarettes 0.1 10 Smokeless Tobacco: Never Comments: 5 cigarettes a day Alcohol Use Standard Drinks/Week Comments No 0 (1 standard drink = 0.6 oz pure alcoho l) Sex Assigned at Date Recorded Female 01/14/2020 10:57 AM EMERGENCY RESPONSE OFFICER documented as of this encounter Miscellaneous Notes Telephone Encounter - Suyapa Rodriguez CMA - 05/18/2015 5:25 PM CDT Riley SWIFT for suboxone approved #[id number], brandon thru 11/17/15. Faxed to pharmacy. Telephone [...] 1:48 PM CDT PA request faxed to [facility], marked URGENT. documented in this encounter Plan of Treatment Upcoming Encounters Date Type Specialty Care Team Description 12/20/2021 Office Visit Wound Care Luis Camara DPM [address] [place], [place] [phone] (Wo rk) 01/21/2022 PRE VISIT Gastroenterology Landon Warren, *-*WANDAIN G RECORDS*-* MD Luis Fernando [address] [place] [phone] (Wo rk) 01/21/2022 Office Visit Gastroenterology Juanis Levi [address] [place] [phone] Luis Fernando Miles MD [address] [place] [phone] documented as of this encounter Visit Diagnoses Diagnosis Uncomplicated opioid dependence (H) - Pr imary Opioid type dependence, unspecified documented in this encounter Care Teams Supervisor Ovens Relationship Specialty Start Date End Date System, Provider Not In PCP - General Clinic 08/12/14 07/13/16 documented as of this encounter
--- OUTSIDE RECORDS SUMMARY | 2021-12-14 16:28 | XMS_ITS | Encounter Summary ---
:1980 Author Organization [place] Address [address] [facility] [place] [address] Care Team Providers Name Role Phone System, Provider Not In Primary Care Provider Unavailable Reason for Visit Reason Onset Date Comments Recheck Medication Erroneous encounter-disregard 05/23/2015 Encounter Details Date Type Department Care Team Description 05/09/2015 Office Visit [facility] Edgar Alfredo NO SHOW ( Primary Dx); Clinic Ashly Gauthier MD ERRONEOUS ENCOUNTER--DISREGARD [address] [place] [address] [place] [phone] Social History Tobacco Use Types Packs/Day Years Used Date Smoking Tobacco: Every Day Cigarettes 0.1 10 Smokeless Tobacco: Never Comments: 5 cigarettes a day Alcohol Use Standard Drinks/Week Comments No 0 (1 standard drink = 0.6 oz pure alcoho l) Sex Assigned at Date Recorded Female 01/14/2020 10:57 AM MUD PLANT OPERATOR documented as of this encounter Progress Notes Edgar Alfredo MD - 05/23/2015 10:31 PM CDT This encounter was opened in error. Please disregard. documented in this encounter Plan of Treatment Upcoming Encounters Date Type Specialty Care Team Description 12/20/2021 Office Visit Wound Care Luis Camara, DPM [address] [place] [address] (Wo rk) 01/21/2022 PRE VISIT Gastroenterology Landon Warren, *-*WANDAIN G RECORDS*-* MD Luis Fernando [address] [place] [address] (Wo rk) 01/21/2022 Office Visit Gastroenterology Juanis Levi [address] [place] [phone] Luis Fernando Miles MD [address] [place] [place] [phone] documented as of this encounter Visit Diagnoses Diagnosis NO SHOW - Primary ERRONEOUS ENCOUNTER--DISREGARD documented in this encounter Care Teams Sociology Research Assistant Relationship Specialty Start Date End Date System, Provider Not In PCP - General Clinic 08/12/14 07/13/16 documented as of this encounter
--- OUTSIDE RECORDS SUMMARY | 2021-12-14 16:28 | XMS_ITS | Encounter Summary ---
:1980 Author Organization [place] Address [address] [place] [address] Care Team Providers Name Role Phone System, Provider Not In Primary Care Provider Unavailable Reason for Visit Reason Onset Date Comments Call Back 12/12/2014 Encounter Details Date Type Department Care Team Description 12/12/2014 Telephone [facility] Nithya Alfredo MD Call Back [place] [address] [facility] [address] [place], [place] [address] [phone] [place] [phone] Social History Tobacco Use Types Packs/Day Years Used Date Smoking Tobacco: Every Day Cigarettes 0.1 10 Smokeless Tobacco: Never Comments: 5 cigarettes a day Alcohol Use Standard Drinks/Week Comments No 0 (1 standard drink = 0.6 oz pure alcoho l) Sex Assigned at Date Recorded Female 01/14/2020 10:57 AM EDITOR CONTINUITY AND SCRIPT documented as of this encounter Miscellaneous Notes [...] pt requesting a call back from Dr Alferdo pt did state what the call was regarding please call pt back at [phone] Vivian Spence, [facility] Music Assistant documented in this encounter Plan of Treatment Upcoming Encounters Date Type Specialty Care Team Description 12/20/2021 Office Visit Wound Care Luis Camara, [place] [address] [place], [place] [phone] (Wo rk) 01/21/2022 PRE VISIT Gastroenterology Landon Warren, *-*WANDAIN G RECORDS*-* MD Luis Fernando [address] [place] [phone] (Wo rk) 01/21/2022 Office Visit Gastroenterology Juanis Levi [address] [place] [phone] Luis Fernando Miles MD [address] [place] [phone] documented as of this encounter Visit Diagnoses Not on filedocumented in this encounter Care Teams Tug Hand Relationship Specialty Start Date End Date System, Provider Not In PCP - General Clinic 08/12/14 07/13/16 documented as of this encounter
--- OUTSIDE RECORDS SUMMARY | 2021-12-14 16:28 | XMS_ITS | Encounter Summary ---
:1980 Author Organization [place] Address [address] [facility] [place] [address] Care Team Providers Name Role Phone System, Provider Not In Primary Care Provider Unavailable Reason for Visit Reason Onset Date Comments Medication Request 05/09/2015 Encounter Details Date Type Department Care Team Description 05/09/2015 Telephone [facility] Edgar Workman Ma, Medication Request [place] [address] [place] [address] [place] [phone] (Reinaldo rk) Social History Tobacco Use Types Packs/Day Years Used Date Smoking Tobacco: Every Day Cigarettes 0.1 10 Smokeless Tobacco: Never Comments: 5 cigarettes a day Alcohol Use Standard Drinks/Week Comments No 0 (1 standard drink = 0.6 oz pure alcoho l) Sex Assigned at Date Recorded Female 01/14/2020 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 documented as of this encounter Miscellaneous [...] appt 05/16 please call pt back at [phone] Vivian Spence, [facility] Side Door Man Telephone Encounter - Edgar Workman MD - [...] Visit Wound Care Luis Camara, [place] [address] [place] [address] (Wo rk) 01/21/2022 PRE VISIT Gastroenterology Landon Warren, *-*WANDAIN G RECORDS*-* MD Luis Feranndo 6 [facility] [address] [place] [address] (Wo rk) 01/21/2022 Office Visit Gastroenterology Juanis Levi [address] [place] [phone] Luis Fernando Miles MD [address] [place] [phone] documented as of this encounter Visit Diagnoses Diagnosis Uncomplicated opioid dependence (H) - Pr imary Opioid type dependence, unspecified documented in this encounter Care Teams Interpreter Relationship Specialty Start Date End Date System, Provider Not In PCP - General Clinic 08/12/14 07/13/16 documented as of this encounter
--- OUTSIDE RECORDS SUMMARY | 2021-12-14 16:28 | XMS_ITS | Encounter Summary ---
:1980 Author Organization [place] Address [address] [facility] [place] [address] Care Team Providers Name Role Phone System, Provider Not In Primary Care Provider Unavailable Reason for Visit Reason Comments Recheck Medication Encounter Details Date Type Department Care Team Description 06/22/2015 Office Visit [facility] Edgar Alfredo Uncomplic ated opioid Clinic Ashly Gauthier MD dependence (H) (Primary [address] Dx) [address] [place] [phone] Social History Tobacco Use Types Packs/Day Years Used Date Smoking Tobacco: Every Day Cigarettes 0.1 10 Smokeless Tobacco: Never Comments: 5 cigarettes a day Alcohol Use Standard Drinks/Week Comments No 0 (1 standard drink = 0.6 oz pure alcoho l) Sex Assigned at Date Recorded Female 01/14/2020 10:57 AM DIE TROUBLE SHOOTER documented as of this encounter Last Filed [...] Take 1 tablet by mouth daily ??? Cgyjwriy-Fbh-Jm-FA ( VITAMINS) 0.8 MG TABS Take 1 [...] and Medical/Social/Surgical histories reviewed in [facility] andupdated as appropriate. ROS: OBJECTIVE: BP 132/79 [...] visit in 1 MONTH Edgar Alfredo MD [facility] documented in this encounter [...] Visit Wound Care Luis Camara DPM [address] [place] [address] (Wo rk) 01/21/2022 PRE VISIT Gastroenterology Landon Warren, *-*HEATHER G RECORDS*-* MD Luis Fernando [address] [facility] [address] [place] [address] (Wo rk) 01/21/2022 Office Visit Gastroenterology Juanis Levi [address] [place] [phone] Luis Fernando Miles MD [address] [facility] [address] [place], [place] [address] documented as of this encounter Procedures Procedure [...] Organization Address City/State/[place] [address] [facility] Building [address] [facility] [address] RJ LAB [...] LAB - URINE ORDERABLES Performing Organization Address City/State/[facility] [place] [address] [facility] [address] [facility] LAB documented in this encounter Visit Diagnoses Diagnosis Uncomplicated opioid dependence (H) - Pr imary Opioid type dependence, unspecified documented in this encounter Care Teams Machinery Cleaner Relationship Specialty Start Date End Date System, Provider Not In PCP - General Clinic 08/12/14 07/13/16 documented as of this encounter
--- OUTSIDE RECORDS SUMMARY | 2021-12-14 16:28 | XMS_ITS | Encounter Summary ---
:1980 Author Organization [place] Address [address] [facility] [place] [address] Care Team Providers Name Role Phone System, Provider Not In Primary Care Provider Unavailable Reason for Visit Reason Comments No Show Encounter Details Date Type Department Care Team Description 07/18/2015 Office Visit [facility] Edgar Alfredo NO SHOW ( Primary Dx) Clinic Ashly Gauthier MD [address] [place] [address] [place] [phone] Social History Tobacco Use Types Packs/Day Years Used Date Smoking Tobacco: Every Day Cigarettes 0.1 10 Smokeless Tobacco: Never Comments: 5 cigarettes a day Alcohol Use Standard Drinks/Week Comments No 0 (1 standard drink = 0.6 oz pure alcoho l) Sex Assigned at Date Recorded Female 01/14/2020 10:57 AM PIANO MAKER documented as of this encounter Progress Notes Edgar Alfredo MD - 07/21/2015 12:51 PM CDT This encounter was opened in error. Please disregard. documented in this encounter Plan of Treatment Upcoming Encounters Date Type Specialty Care Team Description 12/20/2021 Office Visit Wound Care Luis Camara DPM [address] [place] [address] (Wo rk) 01/21/2022 PRE VISIT Gastroenterology Landon Warren, *-*WANDAIN G RECORDS*-* MD Luis Fernando [address] [place] [phone] (Wo rk) 01/21/2022 Office Visit Gastroenterology Juanis Levi [address] [place] [phone] Luis Fernando Miles MD [address] [place] [phone] documented as of this encounter Visit Diagnoses Diagnosis NO SHOW - Primary documented in this encounter Care Teams Bolting Machine Operator Relationship Specialty Start Date End Date System, Provider Not In PCP - General Clinic 08/12/14 07/13/16 documented as of this encounter
--- OUTSIDE RECORDS SUMMARY | 2021-12-14 16:28 | XMS_ITS | Encounter Summary ---
:1980 Author Organization [place] Address [address] [facility] [place] [address] Care Team Providers Name Role Phone System, Provider Not In Primary Care Provider Unavailable Reason for Visit Reason Onset Date Comments Erroneous encounter-disregard 05/09/2015 Encounter Details Date Type Department Care Team Description 05/09/2015 Telephone [facility] Edgar Alfredo, [facility] Ashly VÁSQUEZ encounter-disregard [address] [place] [address] [place] [phone] (Wo rk) Social History Tobacco Use Types Packs/Day Years Used Date Smoking Tobacco: Every Day Cigarettes 0.1 10 Smokeless Tobacco: Never Comments: 5 cigarettes a day Alcohol Use Standard Drinks/Week Comments No 0 (1 standard drink = 0.6 oz pure alcoho l) Sex Assigned at Date Recorded Female 01/14/2020 10:57 AM 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 documented as of this encounter Plan of Treatment Upcoming Encounters Date Type Specialty Care Team Description 12/20/2021 Office Visit Wound Care Luis Camara DPM [address] [place] [address] (Wo rk) 01/21/2022 PRE VISIT Gastroenterology Landon Warren, *-*HEATHER Barriga RECORDS*-* MD Luis Fernando [address] [facility] [address] [place], [place] [phone] (Wo rk) 01/21/2022 Office Visit Gastroenterology Juanis Levi [address] [place] [phone] Luis Fernando Miles MD [address] [facility] [address] [place], [place] [phone] documented as of this encounter Visit Diagnoses Not on filedocumented in this encounter Care Teams Treasury Representative Relationship Specialty Start Date End Date System, Provider Not In PCP - General Clinic 08/12/14 07/13/16 documented as of this encounter
--- OUTSIDE RECORDS SUMMARY | 2021-12-14 16:28 | XMS_ITS | Encounter Summary ---
:1980 Author Organization [place] Address [address] [facility] [place] [address] Care Team Providers Name Role Phone System, Provider Not In Primary Care Provider Unavailable Reason for Visit Reason Onset Date Comments Recheck Medication Erroneous encounter-disregard 05/07/2015 Encounter Details Date Type Department Care Team Description 05/02/2015 Office Visit [facility] Edgar Alfredo ERRONEOUS Clinic Ashly Gauthier MD ENCOUNTER--DISREGARD [address] [place] (Primary Dx) [address] [place] [phone] Social History Tobacco Use Types Packs/Day Years Used Date Smoking Tobacco: Every Day Cigarettes 0.1 10 Smokeless Tobacco: Never Comments: 5 cigarettes a day Alcohol Use Standard Drinks/Week Comments No 0 (1 standard drink = 0.6 oz pure alcoho l) Sex Assigned at Date Recorded Female 01/14/2020 10:57 AM LIEUTENANT 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 Please disregard. documented in this encounter Plan of Treatment Upcoming Encounters Date Type Specialty Care Team Description 12/20/2021 Office Visit Wound Care Luis Camara, [place] [address] [place], [place] [address] (Wo rk) 01/21/2022 PRE VISIT Gastroenterology Landon Warren, *-*INCOMIN G RECORDS*-* MD Luis Fernando [address] [place] [address] (Wo rk) 01/21/2022 Office Visit Gastroenterology Juanis Levi [address] [place] [phone] Luis Fernando Miles MD [address] [phone] documented as of this encounter Visit Diagnoses Diagnosis ERRONEOUS ENCOUNTER--DISREGARD - Primary documented in this encounter Care Teams Sign Installer Relationship Specialty Start Date End Date System, Provider Not In PCP - General Clinic 08/12/14 07/13/16 documented as of this encounter
--- OUTSIDE RECORDS SUMMARY | 2021-12-14 16:28 | XMS_ITS | Encounter Summary ---
:1980 Author Organization [place] Address [address] [facility] [place] [address] Care Team Providers Name Role Phone System, Provider Not In Primary Care Provider Unavailable Reason for Visit Reason Onset Date Comments Erroneous encounter-disregard 07/21/2015 Encounter Details Date Type Department Care Team Description 07/21/2015 Telephone [facility] Alfred[facility] V[facility]SQUEZ encounter-disregard [address] [place] [phone] (Wo rk) Social History Tobacco Use Types Packs/Day Years Used Date Smoking Tobacco: Every Day Cigarettes 0.1 10 Smokeless Tobacco: Never Comments: 5 cigarettes a day Alcohol Use Standard Drinks/Week Comments No 0 (1 standard drink = 0.6 oz pure alcoho l) Sex Assigned at Date Recorded Female 01/14/2020 10:57 AM 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 documented in this encounter Plan of Treatment Upcoming Encounters Date Type Specialty Care Team Description 12/20/2021 Office Visit Wound Care Luis Camara, DPCamryn [address]09 [place] [address] (Wo rk) 01/21/2022 PRE VISIT Gastroenterology Landon Warren, *-*HEATHER G RECORDS*-* MD Luis Fernando [address] [phone] (Wo rk) 01/21/2022 Office Visit Gastroenterology Juanis Levi [address] [place] [phone] Luis Fernando Miles MD [address] [phone] documented as of this encounter Visit Diagnoses Not on filedocumented in this encounter Care Teams Bottom Crane Operator Relationship Specialty Start Date End Date System, Provider Not In PCP - General Clinic 08/12/14 07/13/16 documented as of this encounter
--- OUTSIDE RECORDS SUMMARY | 2021-12-14 16:28 | XMS_ITS | Encounter Summary ---
:1980 Author Organization [place] Address [address] [facility] [place] [address] Care Team Providers Name Role Phone System, Provider Not In Primary Care Provider Unavailable Reason for Visit Reason Comments Recheck Medication Encounter Details Date Type Department Care Team Description 03/28/[address] [facility] Edgar Alfredo Uncomplic ated opioid Clinic Ashly Gauthier MD dependence (H) (Primary [address] Dx) [address] [place] [phone] Social History Tobacco Use Types Packs/Day Years Used Date Smoking Tobacco: Every Day Cigarettes 0.1 10 Smokeless Tobacco: Never Comments: 5 cigarettes a day Alcohol Use Standard Drinks/Week Comments No 0 (1 standard drink = 0.6 oz pure alcoho l) Sex Assigned at Date Recorded Female 01/14/2020 10:57 AM PLANT WORKER documented as of this encounter Last Filed Vital Signs Vital Sign Reading Time Taken Comments Blood Pressure 122/66 03/28/2015 11:23 AM PLANT WORKER Pulse 87 03/28/2015 11:23 AM PLANT WORKER Temperature - - Respiratory Rate - [...] Take 1 tablet by mouth daily ??? Dhepudwc-Kvs-Aj-FA ( VITAMINS) 0.8 MG TABS Take 1 [...] visit in 1 MONTH Edgar Alfredo MD [facility] T WORKER documented in this encounter Nursing Notes [...] size: large Suyapa Rodriguez MLT, CMA T WORKER documented in this encounter Plan of Treatment Upcoming Encounters Date Type Specialty Care Team Description 12/20/2021 Office Visit Wound Care Luis Camara DPM [address] [place], [place] [address] (Wo rk) 01/21/2022 PRE VISIT Gastroenterology Landon Warren, *-*HEATHER Barriga RECORDS*-* MD Luis Fernando [address] [facility] [address] [place], [place] [address] (Wo rk) 01/21/2022 Office Visit Gastroenterology Juanis Levi [facility] [place] [phone] Luis Fernando Miles MD [address] [place] [address] [address] [place] [address] documented as of this encounter Procedures Procedure Name Priority Date/Time Associated Comments Diagnosis BUPRENORPHINE QUAL Routine 03/28/2015 11:04 Resul ts for this URINE AM PLANT WORKER procedure are i n the results section. DRUG ABUSE SCREEN (NL, Routine 03/28/2015 11:04 R esults for this RW) AM PLANT WORKER procedure are i n the results section. documented in this encounter Results Buprenorphine Qual Urine (03/28/2015 11:04 AM PLANT WORKER) Patholo gist Method Time Signature Buprenorphine Negative [facility] LAB Qual Urine Specimen Anatomical Collection Method Collection Time Receive d Time (Source) Location / / Volume Laterality Urine specimen 03/28/2015 11:04 6 (specimen) AM PLANT WORKER 11:09 AM PLANT WORKER Edgar Alfredo MD LAB - URINE ORDERABLES Performing Organization Address City/State/Z[place] [address] [facility] Building [address] [facility] LAB Drug abuse screen (NL, RW) (03/28/2015 11:04 AM PLANT WORKER) Component Value Ref Test Analysis Performed [...] Urine specimen 03/28/2015 11:04 6 (specimen) AM PLANT WORKER 11:09 AM PLANT WORKER Edgar Alfredo MD LAB - URINE ORDERABLES Performing Organization Address City/State/ZIP [place] [address] [facility] Building [address] [facility] LAB documented in this encounter Visit Diagnoses Diagnosis Uncomplicated opioid dependence (H) - Pr imary Opioid type dependence, unspecified documented in this encounter Care Teams Global Marketing Specialist Relationship Specialty Start Date End Date System, Provider Not In PCP - General Clinic 08/12/14 07/13/16 documented as of this encounter
--- OUTSIDE RECORDS SUMMARY | 2021-12-14 16:28 | XMS_ITS | Encounter Summary ---
:1980 Author Organization [place] Address [address] [place] [address] Care Team Providers Name Role Phone System, Provider Not In Primary Care Provider Unavailable Reason for Visit Reason Onset Date Comments Recheck Medication Erroneous encounter-disregard 05/23/2015 Encounter Details Date Type Department Care Team Description 05/17/2015 Office Visit [facility] Edgar Alfredo dep ressive disorder, recurrent episode, moderate (H) (Primary Dx); Clinic Ashly Gauthier MD Uncomplicated opioid dependence (H); [address] ERRONEOUS ENCOUNTER--DISREGA [address] [place] [phone] Social History Tobacco Use Types Packs/Day Years Used Date Smoking Tobacco: Every Day Cigarettes 0.1 10 Smokeless Tobacco: Never Comments: 5 cigarettes a day Alcohol Use Standard Drinks/Week Comments No 0 (1 standard drink = 0.6 oz pure alcoho l) Sex Assigned at Date Recorded Female 01/14/2020 10:57 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 BP completed using cuff size: miguelnagel Rodriguez MLT, DON documented in this encounter Plan of Treatment Upcoming Encounters Date Type Specialty Care Team Description 12/20/2021 Office Visit Wound Care Luis Camara, [place] [address] [place], [place] [phone] (Wo rk) 01/21/2022 PRE VISIT Gastroenterology Landon Warren, *-*INCOMIN G RECORDS*-* MD Luis Fernando [address] [place] [phone] (Wo rk) 01/21/2022 Office Visit Gastroenterology Juanis Levi [address] [place] [phone] Luis Fernando Miles MD [address] [place] [phone] documented as of this encounter Procedures Procedure [...] Organization Address City/State/[place] [address] [facility] Building [address] [...] [facility] [place] [address] [facility] [address] [address] [facility] LAB documented in this encounter Visit Diagnoses Diagnosis Major depressive disorder, recurrent epi sode, moderate (H) - Primary Major depressive disorder, recurrent epi sode, moderate Uncomplicated opioid dependence (H) Opioid type dependence, unspecified ERRONEOUS ENCOUNTER--DISREGARD documented in this encounter Care Teams Director Strategy Relationship Specialty Start Date End Date System, Provider Not In PCP - General Clinic 08/12/14 07/13/16 documented as of this encounter
--- OUTSIDE RECORDS SUMMARY | 2021-12-14 16:28 | XMS_ITS | Encounter Summary ---
:1980 Author Organization [place] Address [address] [place] [address] Care Team Providers Name Role Phone System, Provider Not In Primary Care Provider Unavailable Reason for Visit Reason Onset Date Comments Medication Request 07/18/2015 Suboxone Encounter Details Date Type Department Care Team Description 07/18/2015 Telephone [facility] System, Provider Not Me dication Request Clinic [place] In (Suboxone) [address] [place] [address] Social History Tobacco Use Types Packs/Day Years Used Date Smoking Tobacco: Every Day Cigarettes 0.1 10 Smokeless Tobacco: Never Comments: 5 cigarettes a day Alcohol Use Standard Drinks/Week Comments No 0 (1 standard drink = 0.6 oz pure alcoho l) Sex Assigned at Date Recorded Female 01/14/2020 10:57 AM DRYWALL FINISHER documented as of this encounter Miscellaneous Notes Telephone Encounter - Edgar Alfredo MD - 07/20/2015 2:06 PM CDT Bridge of Subutex ordered patient notified Telephone Encounter - Mark Roldan - 07/18/2015 2:43 PM CDT Incoming call pt need a bridge for Suboxone, pt states she is . Please follow up contact info: [phone] Ok to leave detail message Mark Roldan [facility] documented in this encounter Plan of Treatment Upcoming Encounters Date Type Specialty Care Team Description 12/20/2021 Office Visit Wound Care Luis Camara, [place] [address] [place] [address] (Wo rk) 01/21/2022 PRE VISIT Gastroenterology Landon Warren, *-*INCOMIN G RECORDS*-* MD Luis Fernando [address] [place] [phone] (Wo rk) 01/21/2022 Office Visit Gastroenterology Juanis Levi [address] [place] [phone] Luis Fernando Miles MD [address] [place] [phone] documented as of this encounter Visit Diagnoses Diagnosis Uncomplicated opioid dependence (H) - Pr imary Opioid type dependence, unspecified documented in this encounter Care Teams Base Cloth Inspector Relationship Specialty Start Date End Date System, Provider Not In PCP - General Clinic 08/12/14 07/13/16 documented as of this encounter
--- OUTSIDE RECORDS SUMMARY | 2021-12-14 16:28 | XMS_ITS | Encounter Summary ---
:1980 Author Organization [place] Address [address] [facility] [place] [address] Care Team Providers Name Role Phone System, Provider Not In Primary Care Provider Unavailable Reason for Visit Reason Comments Recheck Medication Encounter Details Date Type Department Care Team Description 01/19/2015 [facility] Visit [facility] Edgar Alfredoplic ated opioid dependence (H) (Primary Dx); Clinic Ashly Gauthier MD Major depressive disorder, recurrent epi sode, moderate (H) [address] [place] [phone] Social History Tobacco Use Types Packs/Day Years Used Date Smoking Tobacco: Every Day Cigarettes 0.1 10 Smokeless Tobacco: Never Comments: 5 cigarettes a day Alcohol Use Standard Drinks/Week Comments No 0 (1 standard drink = 0.6 oz pure alcoho l) Sex Assigned at Date Recorded Female 01/14/2020 10:57 AM CRUSHER ASSEMBLER documented as of this encounter Last Filed Vital Signs Vital Sign Reading Time Taken Comments Blood Pressure 132/85 01/19/2015 10:35 AM CRUSHER ASSEMBLER Pulse 112 01/19/2015 10:35 AM CRUSHER ASSEMBLER Temperature - - Respiratory Rate - - [...] Take 1 tablet by mouth daily ??? Brxtyjaz-Lae-Ry-FA ( VITAMINS) 0.8 MG TABS Take 1 tablet by mouth daily 30 tablet 6 ??? Cholecalciferol (VITAMIN D) 2000 UNITS tablet Take 2,000 Units by mouth daily. 100 tablet 3 ??? [DISCONTINUED] VITAMINS PO Take by mouth. No Known Allergies Problem list, Medication list, Allergies, and Medical/Social/Surgical histories reviewed in [facility] andupdated as appropriate. ROS: OBJECTIVE: BP [...] in 5 WEEKS Edgar Alfredo MD, MD [facility] HER ASSEMBLER documented in this encounter Nursing Notes Suyapa Rodriguez, VOLUNTEER FIRE FIGHTER - 01/19/2015 10:36 AM CST Chief Complaint Patient presents with ??? Recheck Medication Initial BP 132/85 mmHg Pulse 112 Estimated body mass index is 30.96 kg/(m^2) as calculated from the following: Height as of 01/07/13: 5' 5.5 (1.664 m). Weight as of 07/28/14: 189 lb (85.73 kg). BP completed using cuff size: miguelangel Rodriguez MLT, DON HER ASSEMBLER documented in this encounter Plan of Treatment Upcoming Encounters Date Type Specialty Care Team Description 12/20/2021 Office Visit Wound Care [facility] Luis Lex, DPM [address] [place], [place] [phone] (Wo rk) 01/21/2022 PRE VISIT Gastroenterology Landon Warren, *-*WANDAIN G RECORDS*-* MD Luis Fernando [address] [address] (Wo rk) 01/21/2022 Office Visit Gastroenterology Juanis Levi [address] [place] [address] Luis Fernando Miles MD [address] [address] documented as of this encounter Procedures Procedure Name Priority Date/Time Associated Diagnosis Comme nts BUPRENORPHINE QUAL Routine 01/19/2015 10:26 Uncomplicated opio id Results for this URINE AM CRUSHER ASSEMBLER dependence (H) procedure are in the results section. DRUG ABUSE SCREEN Routine 01/19/2015 10:26 Uncomplicated opioi d Results for this (NL, RW) AM CRUSHER ASSEMBLER dependence (H) procedure are in the results section. documented in this encounter Results Buprenorphine Qual Urine (01/19/2015 10:26 AM CRUSHER ASSEMBLER) [facility] gist Method Time Signature Buprenorphine Positive [facility] LAB Qual Urine Specimen Anatomical Collection Method Collection Time Receive d Time (Source) Location / / Volume Laterality Urine specimen 01/19/2015 10:26 5 (specimen) AM CRUSHER ASSEMBLER 10:32 AM CRUSHER ASSEMBLER Edgar Alfredo MD LAB - URINE ORDERABLES Performing Organization Address City/State/[place] [address] [facility] Building [address] [facility] LAB Drug abuse screen (NL, RW) (01/19/2015 10:26 AM CRUSHER ASSEMBLER) Component Value Ref Test Analysis Performed Pathologis [...] Urine specimen 01/19/2015 10:26 5 (specimen) AM CRUSHER ASSEMBLER 10:32 AM CRUSHER ASSEMBLER Edgar Alfredo MD LAB - URINE ORDERABLES Performing Organization Address City/State/[facility] [place] [address] [facility] Building [address] [facility] LAB documented in this encounter Visit Diagnoses Diagnosis Uncomplicated opioid dependence (H) - Pr imary Opioid type dependence, unspecified Major depressive disorder, recurrent epi sode, moderate (H) Major depressive disorder, recurrent epi sode, moderate documented in this encounter Care Teams Biology Tutor Relationship Specialty Start Date End Date System, Provider Not In PCP - General Clinic 08/12/14 07/13/16 documented as of this encounter
--- OUTSIDE RECORDS SUMMARY | 2021-12-14 16:28 | XMS_ITS | Encounter Summary ---
:1980 Author Organization [place] Address [address] [facility] [address] Care Team Providers Name Role Phone System, Provider Not In Primary Care Provider Unavailable Reason for Visit Reason Onset Date Comments Medication Request 02/09/2015 buprenorphine (SUBUT EX) 8 MG SUBL Encounter Details Date Type Department Care Team Description 02/09/2015 Telephone [facility] Edgar Alfredo, [facility] ication Request Clinic Ashly VÁSQUEZ (buprenorphine [address] [place] (SUBUTEX) 8 MG SUBL) [address] [place] [phone] (Wo rk) Social History Tobacco Use Types Packs/Day Years Used Date Smoking Tobacco: Every Day Cigarettes 0.1 10 Smokeless Tobacco: Never Comments: 5 cigarettes a day Alcohol Use Standard Drinks/Week Comments No 0 (1 standard drink = 0.6 oz pure alcoho l) Sex Assigned at Date Recorded Female 01/14/2020 10:57 AM FERRYBOAT OPERATOR HELPER documented as of this encounter Miscellaneous Notes Telephone Encounter - Edgar Alfredo MD - 02/09/2015 1:37 PM CST Not sure what this is about; had 28 day supply ordered 01/19/15 - should last until 02/16/15 Does not have an appointment ; may need a bridge YBOAT OPERATOR HELPER Telephone Encounter - Suyapa Rodriguez CMA - 02/09/2015 12:08 PM FERRYBOAT OPERATOR HELPER Pharmacy called, given vacation override to fill early. YBOAT OPERATOR HELPER Telephone Encounter - Shayy Boles - 02/09/2015 11:44 AM CST Incoming call from patient requesting to speak with a nurse regarding her medication for buprenorphine (SUBUTEX) 8 MG SUBL. Patient states she was told by her pharmacy that they would need and ok from provider to get this medication refilled. Patient can be reached at [phone] Shayy Boles Team Bell Spinner Sousaphones YBOAT OPERATOR HELPER documented in this encounter Plan of Treatment Upcoming Encounters Date Type Specialty Care Team Description 12/20/2021 Office Visit Wound Care Luis Camara, [place]VIN [address] [place] [address] (Wo rk) 01/21/2022 PRE VISIT Gastroenterology Landon Warren, *-*WANDAIN G RECORDS*-* MD Luis Fernando [address] [place] [address] (Wo rk) 01/21/2022 Office Visit Gastroenterology Juanis Levi [address] [place] [phone] Luis Fernando Miles MD [address] [place] [address] documented as of this encounter Visit Diagnoses Not on filedocumented in this encounter Care Teams Coremaker Machine Relationship Specialty Start Date End Date System, Provider Not In PCP - General Clinic 08/12/14 07/13/16 documented as of this encounter
--- OUTSIDE RECORDS SUMMARY | 2021-12-14 16:28 | XMS_ITS | Encounter Summary ---
:1980 Author Organization [place] Address [address] [facility] [place] [address] Care Team Providers Name Role Phone System, Provider Not In Primary Care Provider Unavailable Reason for Visit Reason Onset Date Comments Medication Request 05/02/2015 Encounter Details Date Type Department Care Team Description 05/02/2015 Telephone [facility] Edgar Alfredo Ma, Medication Request [place] [address] [place] [address] [place] [phone] (Reinaldo rk) Social History Tobacco Use Types Packs/Day Years Used Date Smoking Tobacco: Every Day Cigarettes 0.1 10 Smokeless Tobacco: Never Comments: 5 cigarettes a day Alcohol Use Standard Drinks/Week Comments No 0 (1 standard drink = 0.6 oz pure alcoho l) Sex Assigned at Date Recorded Female 01/14/2020 10:57 AM UNDERGRADUATE ADVISOR documented as of this encounter Miscellaneous [...] [facility] Vivian Spence [facility] Derrick Boat Leverman documented in this encounter Plan of Treatment Upcoming Encounters Date Type Specialty Care Team Description 12/20/2021 Office Visit Wound Care Luis Camara, [place] [address] [place], [place] [address] (Wo rk) 01/21/2022 PRE VISIT Gastroenterology Landon Warren, *-*INCOMIN G RECORDS*-* MD Luis Fernando [address] [place] [phone] (Wo rk) 01/21/2022 Office Visit Gastroenterology Juanis Levi [address] [place] [phone] Luis Fernando Miles MD [address] [place] [phone] documented as of this encounter Visit Diagnoses Diagnosis Uncomplicated opioid dependence (H) - Pr imary Opioid type dependence, unspecified documented in this encounter Care Teams Adult Family Home Program Manager Relationship Specialty Start Date End Date System, Provider Not In PCP - General Clinic 08/12/14 07/13/16 documented as of this encounter
--- OUTSIDE RECORDS SUMMARY | 2021-12-14 16:28 | XMS_ITS | Encounter Summary ---
:1980 Author Organization [place] Address [address] [facility] [place] [address] Care Team Providers Name Role Phone System, Provider Not In Primary Care Provider Unavailable Reason for Visit Reason Onset Date Comments Other 01/17/2015 appointment request Encounter Details Date Type Department Care Team Description 01/17/2015 Telephone [facility] Edgar Alfredo, [facility] er (appointment Clinic [place] request ) [address] [place] [address] [place] [phone] (Wo rk) Social History Tobacco Use Types Packs/Day Years Used Date Smoking Tobacco: Every Day Cigarettes 0.1 10 Smokeless Tobacco: Never Comments: 5 cigarettes a day Alcohol Use Standard Drinks/Week Comments No 0 (1 standard drink = 0.6 oz pure alcoho l) Sex Assigned at Date Recorded Female 01/14/2020 10:57 AM CATEGORY MANAGER documented as of this encounter Miscellaneous Notes Telephone Encounter - Suyapa Rodriguez CMA - 01/17/2015 1:43 PM CST Called patient, scheduled for . 01/19 @ 10:30a GORY MANAGER Telephone Encounter - Edgar Alfredo MD - 01/17/2015 12:48 PM CST at 10:30 or Friday at 10:00 Should have enough medication until then GORY MANAGER Telephone Encounter - Shayy Boles - 01/17/2015 10:24 AM CST Incoming call from patient requesting to speak with provider about possibly being seen sometime thisweek. Patient states her son is in the hospital and she is wondering if can squeeze her in to be seen. She is also in need of a bridge of her medication for subutex. Patient can be reached at [phone] Shayy Boles Team Song And Dance Performer GORY MANAGER documented in this encounter Plan of Treatment Upcoming Encounters Date Type Specialty Care Team Description 12/20/2021 Office Visit Wound Care Luis Camara DPM [address] [place] [address] (Wo rk) 01/21/2022 PRE VISIT Gastroenterology Landon Warren, *-*INCOMIN G RECORDS*-* MD Luis Fernando [address] [place] [phone] (Wo rk) 01/21/2022 Office Visit Gastroenterology Juanis Levi [address] [place] [phone] Luis Fernando Miles MD [address] [place] [phone] documented as of this encounter Visit Diagnoses Not on filedocumented in this encounter Care Teams Cook 3 Pastry Relationship Specialty Start Date End Date System, Provider Not In PCP - General Clinic 08/12/14 07/13/16 documented as of this encounter
--- OUTSIDE RECORDS SUMMARY | 2021-12-14 16:28 | XMS_ITS | Encounter Summary ---
:1980 Author Organization [place] Address [address] [facility] [place] [address] Care Team Providers Name Role Phone System, Provider Not In Primary Care Provider Unavailable Reason for Visit Reason Onset Date Comments Medication Question 06/14/2015 Subx Bridge Encounter Details Date Type Department Care Team Description 06/14/2015 Telephone [facility] Edgar Alfredo, [facility] ication Question Clinic Ashly VÁSQUEZ (Subx Bridge) [address] [place] [address] [place] [phone] (Wo rk) Social History Tobacco Use Types Packs/Day Years Used Date Smoking Tobacco: Every Day Cigarettes 0.1 10 Smokeless Tobacco: Never Comments: 5 cigarettes a day Alcohol Use Standard Drinks/Week Comments No 0 (1 standard drink = 0.6 oz pure alcoho l) Sex Assigned at Date Recorded Female 01/14/2020 10:[address] documented as of this encounter Miscellaneous Notes Telephone Encounter - Edgar Alfredo MD - 06/14/2015 12:48 PM CDT Spoke to patient Bridge called in Telephone Encounter - Dora Merchant - 06/14/2015 12:25 PM CDT Incoming call from pt requesting a bridge for subx until next appt on 06/21. Please follow up. Pt contact info: [phone] Script can be sent to [facility] Thank you, Dora Merchant [facility] Telephone Encounter - Dora Merchant - 06/14/2015 11:41 AM CDT Incoming call from pt, documented in this encounter Plan of Treatment Upcoming Encounters Date Type Specialty Care Team Description 12/20/2021 Office Visit Wound Care Luis Camara, DPM [address] [place] [address] (Wo rk) 01/21/2022 PRE VISIT Gastroenterology Landon Warren, *-*INCOMIN G RECORDS*-* MD Luis Fernando [address] [place] [address] (Wo rk) 01/21/2022 Office Visit Gastroenterology Juanis Levi [address] [place] [phone] Luis Fernando Miles MD [address] [place] [address] documented as of this encounter Visit Diagnoses Diagnosis Uncomplicated opioid dependence (H) - Pr imary Opioid type dependence, unspecified documented in this encounter Care Teams Certified Physician Assistant Relationship Specialty Start Date End Date System, Provider Not In PCP - General Clinic 08/12/14 07/13/16 documented as of this encounter
--- OUTSIDE RECORDS SUMMARY | 2021-12-14 16:28 | XMS_ITS | Encounter Summary ---
:1980 Author Organization [place] Address [address] [facility] [place] [address] Care Team Providers Name Role Phone System, Provider Not In Primary Care Provider Unavailable Reason for Visit Reason Onset Date Comments Recheck Medication Erroneous encounter-disregard 06/13/2015 Encounter Details Date Type Department Care Team Description 06/12/2015 Office Visit [facility] Edgar Alfredo NO SHOW ( Primary Dx); Clinic Ashly Gauthier MD ERRONEOUS ENCOUNTER--DISREGARD [address] [place] [address] [place] [phone] Social History Tobacco Use Types Packs/Day Years Used Date Smoking Tobacco: Every Day Cigarettes 0.1 10 Smokeless Tobacco: Never Comments: 5 cigarettes a day Alcohol Use Standard Drinks/Week Comments No 0 (1 standard drink = 0.6 oz pure alcoho l) Sex Assigned at Date Recorded Female 01/14/2020 10:57 AM AUDITOR IN CHARGE documented as of this encounter Progress Notes Edgar Alfredo MD - 06/13/2015 1:56 PM CDT This encounter was opened in error. Please disregard. documented in this encounter Plan of Treatment Upcoming Encounters Date Type Specialty Care Team Description 12/20/2021 Office Visit Wound Care Luis Camara, DPM [address] [place] [address] (Wo rk) 01/21/2022 PRE VISIT Gastroenterology Landon Warren, *-*WANDAIN G RECORDS*-* MD Luis Fernando [address] [place] [address] (Wo rk) 01/21/2022 Office Visit Gastroenterology Juanis Levi [address] [place] [phone] Luis Fernando Miles MD [address] [place] [phone] documented as of this encounter Visit Diagnoses Diagnosis NO SHOW - Primary ERRONEOUS ENCOUNTER--DISREGARD documented in this encounter Care Teams It Infrastructure Architect Relationship Specialty Start Date End Date System, Provider Not In PCP - General Clinic 08/12/14 07/13/16 documented as of this encounter
--- OUTSIDE RECORDS SUMMARY | 2021-12-14 16:29 | XMS_ITS | Encounter Summary ---
:1980 Author Organization [place] Address [address] [facility] [place] [address] Care Team Providers Name Role Phone System, [...] Expiration Date Visits Requ ested Visits Authorized [id number] Closed 08/12/2014 02/08/2015 1 1 Encounter Details Date Type Department Care Team Description 08/24/2014 Office Visit [facility] Breanna Coleman con genital heart Maternal MD Julian defect, antepartum Medicine Center [address] [place], [place] [address] [address] [place] [phone] Social History Tobacco Use Types Packs/Day Years Used Date Smoking Tobacco: Every Day Cigarettes 0.1 10 Smokeless Tobacco: Never Comments: 5 cigarettes a day Alcohol Use Standard Drinks/Week Comments No 0 (1 standard drink = 0.6 oz pure alcoho l) Sex Assigned at Date Recorded Female 01/14/2020 10:57 AM ENGINE LATHE TENDER documented as of this encounter Progress Notes Breanna Coleman MD - 08/26/2014 3:38 PM CDT The patient was seen for an ultrasound and consultation in the Maternal[facility] Medicine [facility] at [facility] today. The following is the summary [...] of this patient and/or family members. Approximate jlnq-sa-caeb time was 30 minutes. Breanna Coleman MD Maternal- Medicine & Clinical Genetics August 24, 2014 documented in this encounter Nursing Notes Sintia Rasheed RN - 08/24/2014 3:27 PM CDT Pt seen for comp u/s, ECHO, and MFM consult. Pediatric Cardiology and Dr Coleman met with patient. Plan for patient to return to [facility] in 4 weeks for f/u comp u/s, 1st OBV, and f/u ECHO. Will schedule pt for NICU consult at that appointment. documented in this encounter Plan of Treatment Upcoming Encounters Date Type Specialty Care Team Description 12/20/2021 Office Visit Wound Care Luis Camara, CALVIN [address] [place], [place] [phone] (Wo rk) 01/21/2022 PRE VISIT Gastroenterology Landon Warren, *-*HEATHER Barriga RECORDS*-* MD Luis Fernando [address] [phone] (Wo rk) 01/21/2022 Office Visit Gastroenterology Juanis Levi [address] [place] [phone] Luis Fernando Miles MD [address] [place] [phone] documented as of this encounter Visit Diagnoses Diagnosis congenital heart defect, antepartu m Other known or suspected abnormali ty, not elsewhere classified, affecting management of mother, antepartum conditi on or complication documented in this encounter Care Teams Office Coordinator Relationship Specialty Start Date End Date System, Provider Not In PCP - General Clinic 08/12/14 07/13/16 documented as of this encounter
--- OUTSIDE RECORDS SUMMARY | 2021-12-14 16:29 | XMS_ITS | Encounter Summary ---
:1980 Author Organization [place] Address [address] [facility] [place] [address] Care Team Providers Name Role Phone System, Provider Not In Primary Care Provider Unavailable Reason for Visit Reason Onset Date Comments Clinic Care Coordination - Follow-up 10/06/2014 Encounter Details Date Type Department Care Team Description 10/06/2014 Telephone [facility] Breanna Coleman Clinic Ca re Coordination Maternal Medicine MD Julian - Follow-up Center [facility] [address] [place], [place] [phone] Social History Tobacco Use Types Packs/Day Years Used Date Smoking Tobacco: Every Day Cigarettes 0.1 10 Smokeless Tobacco: Never Comments: 5 cigarettes a day Alcohol Use Standard Drinks/Week Comments No 0 (1 standard drink = 0.6 oz pure alcoho l) Sex Assigned at Date Recorded Female 01/14/2020 10:57 AM SALESPERSON SHEET MUSIC documented as of this encounter Miscellaneous Notes Telephone Encounter - Breanna Coleman MD - 10/06/2014 5:34 PM CDT After discussion with the father of the , Stephani has decided that she will transfer care to [facility] We will forward her records to [facility] and anticipate that they will bein touch with her to arrange for ultrasound, echo and to establish OB care in the next couple of days. Breanna Coleman MD Maternal- Medicine & Clinical Genetics October 06, 2014 documented in this encounter Plan of Treatment Upcoming Encounters Date Type Specialty Care Team Description 12/20/2021 Office Visit Wound Care Luis Camara, DPM [address] [place] [address] (Wo rk) 01/21/2022 PRE VISIT Gastroenterology Landon Warren, *-*HEATHER G RECORDS*-* MD Luis Fernando [address] [phone] (Wo rk) 01/21/2022 Office Visit Gastroenterology Juanis Levi [address] [place] [phone] Luis Fernando Miles MD [address] [place] [address] documented as of this encounter Visit Diagnoses Not on filedocumented in this encounter Care Teams Corporate Aircraft Mechanic Relationship Specialty Start Date End Date System, Provider Not In PCP - General Clinic 08/12/14 07/13/16 documented as of this encounter
--- OUTSIDE RECORDS SUMMARY | 2021-12-14 16:29 | XMS_ITS | Encounter Summary ---
:1980 Author Organization [place] Address [address] [facility] [place] [address] Care Team Providers Name Role Phone Edgar Alfredo MD Primary Care Provider Reason for Visit Reason Comments Recheck Medication Encounter Details Date Type Department Care Team Description 07/21/2014 Office Visit [facility] Edgar Alfredoplic ated opioid dependence (H) (Primary Dx); Clinic Ashly Gauthier MD Opiate dependence (H) [address] [place] [phone] Social History Tobacco Use Types Packs/Day Years Used Date Smoking Tobacco: Every Day Cigarettes 0.1 10 Smokeless Tobacco: Never Comments: 5 cigarettes a day Alcohol Use Standard Drinks/Week Comments No 0 (1 standard drink = 0.6 oz pure alcoho l) Sex Assigned at Date Recorded Female 01/14/2020 10:57 AM ASSISTANT DIRECTOR OF FINANCIAL AID documented as of this encounter Last [...] Visit Wound Care Luis Camara, [place]VIN [address] [place] [address] (Wo rk) 01/21/2022 PRE VISIT Gastroenterology Landon Warren, *-*INCOMIN G RECORDS*-* MD Luis Fernando [address] [place] [address] [address] [place] [address] (Wo rk) 01/21/2022 Office Visit Gastroenterology Juanis Levi [address] [place] [phone] Luis Fernando Miles MD [address] [facility] [address] [place] [address] documented as of this encounter [...] Organization Address City/State/[place] [address] [facility] Building [address] [...] [facility] [place] [address] [facility] Building [address] [place] LAB documented in this encounter Visit Diagnoses Diagnosis Uncomplicated opioid dependence (H) - Pr imary Opioid type dependence, unspecified documented in this encounter Care Teams Lithographic Etcher Relationship Specialty Start Date End Date Edgar Alfredo MD PCP - General Family Practice 04/13/12 08/11/[address] [place] [address] documented as of this encounter
--- OUTSIDE RECORDS SUMMARY | 2021-12-14 16:29 | XMS_ITS | Encounter Summary ---
:1980 Author Organization [place] Address [address] [place] [address] Care Team Providers Name Role Phone Edgar Alfredo MD Primary Care Provider Reason for Visit Reason Onset Date Comments Formulary Issue 06/08/2014 buprenorphine (SUBUT EX) 8 MG SUBL Encounter Details Date Type Department Care Team Description 06/08/2014 Telephone [facility] Edgar Alfredo, For mulary Issue Clinic Ashly VÁSQUZE (buprenorphine [address] [place] (SUBUTEX) 8 MG SUBL) [address] [place] [phone] (Wo rk) Social History Tobacco Use Types Packs/Day Years Used Date Smoking Tobacco: Every Day Cigarettes 0.1 10 Smokeless Tobacco: Never Comments: 5 cigarettes a day Alcohol Use Standard Drinks/Week Comments No 0 (1 standard drink = 0.6 oz pure alcoho l) Sex Assigned at Date Recorded Female 01/14/2020 10:57 AM BANANA EXPERT documented as of this encounter Miscellaneous Notes Telephone Encounter - Suyapa Rodriguez [facility] - 06/10/2014 8:53 AM CDT PA approved #[id number], good thru 06/17/14, will change insurance then and will need to be redone. Telephone Encounter - Suyapa Rodriguez CMA - 06/08/2014 2:20 PM CDT was waiting for necessary info from patient or Dr. Alfredo. Pt called back. PA faxed to [facility]. Telephone Encounter - Vivian Spence CMA - 06/08/2014 2:08 PM CDT Incoming call from patient stating a PA is needed for buprenorphine (SUBUTEX) 8 MG SUBL Vivian Spence, [facility] Medical Dir documented in this encounter Plan of Treatment Upcoming Encounters Date Type Specialty Care Team Description 12/20/2021 Office Visit Wound Care Luis Camara, CALVIN [address] [place] [address] (Wo rk) 01/21/2022 PRE VISIT Gastroenterology Landon Warren, *-*WANDAIN G RECORDS*-* MD Luis Fernando [address] [place] [phone] (Wo rk) 01/21/2022 Office Visit Gastroenterology Juanis Levi [address] [place] [phone] Luis Fernando Miles MD [address] [place] [phone] documented as of this encounter Visit Diagnoses Not on filedocumented in this encounter Care Teams Political Analyst Relationship Specialty Start Date End Date Edgar Alfredo MD PCP - General Family Practice 04/13/12 08/11/[address] [place] [phone] documented as of this encounter
--- OUTSIDE RECORDS SUMMARY | 2021-12-14 16:29 | XMS_ITS | Encounter Summary ---
:1980 Author Organization [place] Address [address] [facility] [place] [address] Care Team Providers Name Role Phone System, Provider Not In Primary Care Provider Unavailable Reason for Visit Reason Comments Recheck Medication Encounter Details Date Type Department Care Team Description 10/13/2014 Office Visit [facility] Edgar Alfredoplic ated opioid dependence (H) (Primary Dx); Clinic Ashly Gauthier MD Opiate dependence (H) [address] [place] [phone] Social History Tobacco Use Types Packs/Day Years Used Date Smoking Tobacco: Every Day Cigarettes 0.1 10 Smokeless Tobacco: Never Comments: 5 cigarettes a day Alcohol Use Standard Drinks/Week Comments No 0 (1 standard drink = 0.6 oz pure alcoho l) Sex Assigned at Date Recorded Female 01/14/2020 10:57 AM [place] MACHINE OPERATOR documented as of this encounter [...] followup WILL BE SWITCHING OB COVERAGE TO [facility] [place] [facility]Y WILL HAVE HEART SURGERY ON [...] Take 1 tablet by mouth daily ??? [id number]-[id number]-Gq-[id number] ( VITAMINS) 0.8 MG TABS Take 1 [...] list, Allergies, and Medical/Social/Surgical histories reviewed in [facility] andupdated as appropriate. ROS: Constitutional, HEENT, [...] in 1 MONTH Edgar Alfredo MD, MD [facility] [...] Visit Wound Care Luis Camara DPM [address] [place] [address] (Wo rk) 01/21/2022 PRE VISIT Gastroenterology Landon Warren, *-*HEATHER Barriga RECORDS*-* MD Luis Fernando [address] [facility] [address] [place] [address] (Wo rk) 01/21/2022 Office Visit Gastroenterology Juanis Levi [address] [place] [phone] Luis Fernando Miles MD [address] [facility] [address] [place], [place] [address] documented as of this encounter Procedures Procedure [...] Organization Address City/State/[place] [address] [facility] Building [address] [facility] [address] RJ [...] LAB - URINE ORDERABLES Performing Organization Address City/State/[facility] [place] [address] [facility] Building [address] LAB documented in this encounter Visit Diagnoses Diagnosis Uncomplicated opioid dependence (H) - Pr imary Opioid type dependence, unspecified documented in this encounter Care Teams Account Development Executive Relationship Specialty Start Date End Date System, Provider Not In PCP - General Clinic 08/12/14 07/13/16 documented as of this encounter
--- OUTSIDE RECORDS SUMMARY | 2021-12-14 16:29 | XMS_ITS | Encounter Summary ---
:1980 Author Organization [place] Address [address] [place] [address] Care Team Providers Name Role Phone System, Provider Not In Primary Care Provider Unavailable Reason for Visit Reason Onset Date Comments Care 10/06/2014 Encounter Details Date Type Department Care Team Description 10/06/2014 Telephone [facility] Maternal Breanna Worthington MD Care Medicine Center [address] [place] [address] [place], [place] [address] [phone] Social History Tobacco Use Types Packs/Day Years Used Date Smoking Tobacco: Every Day Cigarettes 0.1 10 Smokeless Tobacco: Never Comments: 5 cigarettes a day Alcohol Use Standard Drinks/Week Comments No 0 (1 standard drink = 0.6 oz pure alcoho l) Sex Assigned at Date Recorded Female 01/14/2020 10:57 AM SUPERVISOR STRIPPING documented as of this encounter Miscellaneous Notes Telephone Encounter - Breanna Coleman MD - 10/06/2014 3:47 PM CDT Patient has missed several appointments at [facility] in the last few weeks. Called [...] Visit Wound Care Luis Camara, [place] [address] [place], [place] [address]255 (Wo rk) 01/21/2022 PRE VISIT Gastroenterology Landon Warren, *-*INCOMIN G RECORDS*-* MD Luis Fernando [address] [place] [address] [phone] (Wo rk) 01/21/2022 Office Visit Gastroenterology Juanis Levi [address] [place] [phone] Luis Fernando Miles MD [address] [place] [address] [phone] documented as of this encounter Visit Diagnoses Not on filedocumented in this encounter Care Teams Kettle Firer Relationship Specialty Start Date End Date System, Provider Not In PCP - General Clinic 08/12/14 07/13/16 documented as of this encounter
--- OUTSIDE RECORDS SUMMARY | 2021-12-14 16:29 | XMS_ITS | Encounter Summary ---
:1980 Author Organization [place] Address [address] [facility] [place] [address] Care Team Providers Name Role Phone System, Provider Not In Primary Care Provider Unavailable Reason for Visit Reason Comments Recheck Medication Encounter Details Date Type Department Care Team Description 11/24/2014 Office Visit [facility] Edgar Alfredo Uncomplic ated opioid Clinic Ashly Gauthier MD dependence (H) (Primary [address] Dx) [address] [place] [address] [place] [phone] Social History Tobacco Use Types Packs/Day Years Used Date Smoking Tobacco: Every Day Cigarettes 0.1 10 Smokeless Tobacco: Never Comments: 5 cigarettes a day Alcohol Use Standard Drinks/Week Comments No 0 (1 standard drink = 0.6 oz pure alcoho l) Sex Assigned at Date Recorded Female 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 Zmomjkdc-Loe-Ur-FA ( VITAMINS) 0.8 MG TABS Take 1 [...] in [facility] andupdated as appropriate. OBJECTIVE: BP 113/81 [...] RE-CHECK 1 MONTH} Edgar Alfredo MD, MD [facility] [...] Visit Wound Care Luis Camara DPM [address] [place], [place] [phone] (Wo rk) 01/21/2022 PRE VISIT Gastroenterology Landon Warren, *-*HEATHER G RECORDS*-* MD Luis Fernando [address] [facility] 2A [place], [place] [address] (Wo rk) 01/21/2022 Office Visit Gastroenterology Juanis Levi [address] [place] [phone] Luis Fernando Miles MD 6 [facility] [place] [address] documented as of this encounter Procedures Procedure [...] Organization Address City/State/[place] [address] [facility] Building [address] [place] [address] [address] [facility] LAB Drug abuse screen [...] Organization Address City/State/[place] [address] [facility] [address] [facility] documented in this encounter Visit Diagnoses Diagnosis Uncomplicated opioid dependence (H) - Pr imary Opioid type dependence, unspecified documented in this encounter Care Teams Felt Machine Mechanic Relationship Specialty Start Date End Date System, Provider Not In PCP - General Clinic 08/12/14 07/13/16 documented as of this encounter
--- OUTSIDE RECORDS SUMMARY | 2021-12-14 16:29 | XMS_ITS | Encounter Summary ---
:1980 Author Organization [place] Address [address] [facility] [place] [address] Care Team Providers Name Role Phone System, Provider Not In Primary Care Provider Unavailable Reason for Visit Reason Onset Date Comments Clinic Care Coordination - Follow-up 08/12/2014 Encounter Details Date Type Department Care Team Description 08/12/2014 Telephone [facility] Vivian Duncan, Clinic Care Coordination Maternal Medicine RN - [facility] [address] [place] [address] Social History Tobacco Use Types Packs/Day Years Used Date Smoking Tobacco: Every Day Cigarettes 0.1 10 Smokeless Tobacco: Never Comments: 5 cigarettes a day Alcohol Use Standard Drinks/Week Comments No 0 (1 standard drink = 0.6 oz pure alcoho l) Sex Assigned at Date Recorded Female 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 Stephani expressed that the ultrasound that she had today at [facility] showed abnormalities of the heart. The patient sounded very anxious about this and asked for statistics on how babies do with similar findings, how to treat this, and what the worst case scenerio would be. This freelance copywriter was unable to give her any information about these; there has been no formal diagnosis. Stephani has an appointment set up for August 24 for a echo, comprehensive ultrasound, and MFM consult at [facility]. Encouraged patient to write down questions [...] Visit Wound Care Luis Camara, [place] [address] [place] [address] (Wo rk) 01/21/2022 PRE VISIT Gastroenterology Landon Warren, *-*WANDAIN G RECORDS*-* MD Luis Fernando [address] [place] [address] (Wo rk) 01/21/2022 Office Visit Gastroenterology Juanis Levi [address] [place] [phone] Luis Fernando Miles MD [address] [place] [address] documented as of this encounter Visit Diagnoses Not on filedocumented in this encounter Care Teams Cargo Mate Relationship Specialty Start Date End Date System, Provider Not In PCP - General Clinic 08/12/14 07/13/16 documented as of this encounter
--- OUTSIDE RECORDS SUMMARY | 2021-12-14 16:29 | XMS_ITS | Encounter Summary ---
:1980 Author Organization [place] Address [address] [place] [address] Care Team Providers Name Role Phone Edgar Alfredo MD Primary Care Provider Encounter Details Date Type Department Care Team Description 06/29/2014 Telephone [facility] Nithya Alfredo MD [place] [address] [facility] [address] [place], [place] [address] [phone] [place] [phone] Social History Tobacco Use Types Packs/Day Years Used Date Smoking Tobacco: Every Day Cigarettes 0.1 10 Smokeless Tobacco: Never Comments: 5 cigarettes a day Alcohol Use Standard Drinks/Week Comments No 0 (1 standard drink = 0.6 oz pure alcoho l) Sex Assigned at Date Recorded Female 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/2020 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 documented as of this encounter Miscellaneous Notes Telephone Encounter - Edgar Alfredo MD - 06/29/2014 10:07 AM CDT Advised of positive cocaine in urine Still denies Advised she must explain how it got there next visit documented in this encounter Plan of Treatment Upcoming Encounters Date Type Specialty Care Team Description 12/20/2021 Office Visit Wound Care Luis Camara, [place] [address] [place] [address] (Wo rk) 01/21/2022 PRE VISIT Gastroenterology Landon Warren, *-*INCOMIN G RECORDS*-* MD Luis Fernando 516 [facility] [address] [place], [place] [address] (Wo rk) 01/21/2022 Office Visit Gastroenterology Juanis Levi [address] [place] [phone] Luis Fernando Miles MD [address] [phone] documented as of this encounter Visit Diagnoses Not on filedocumented in this encounter Care Teams Phlebotomist Medical Lab Assistant Relationship Specialty Start Date End Date Edgar Alfredo MD PCP - General Family Practice 04/13/12 08/11/14 [address] [facility] [address] [place] [address] documented as of this encounter
--- OUTSIDE RECORDS SUMMARY | 2021-12-14 16:29 | XMS_ITS | Encounter Summary ---
:1980 Author Organization [place] Address [address] [facility] [place] [address] Care Team Providers Name Role Phone Edgar Alfredo MD Primary Care Provider Reason for Visit Reason Comments Recheck Medication Encounter Details Date Type Department Care Team Description 05/05/2014 Office Visit [facility] Edgar Alfredo de pendence (H) Clinic Ashly Gauthier MD [address] [place] [address] [place] [phone] Social History Tobacco Use Types Packs/Day Years Used Date Smoking Tobacco: Every Day Cigarettes 0.1 10 Smokeless Tobacco: Never Comments: 5 cigarettes a day Alcohol Use Standard Drinks/Week Comments No 0 (1 standard drink = 0.6 oz pure alcoho l) Sex Assigned at Date Recorded Female 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/2020 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 documented as of this encounter Last [...] Visit Wound Care Luis Camara DPM [address] [place] [address] (Wo rk) 01/21/2022 PRE VISIT Gastroenterology Landon Warren, *-*HEATHER Barriga RECORDS*-* MD Luis Fernando 516 [facility] 2A [place] [address] (Wo rk) 01/21/2022 Office Visit Gastroenterology Juanis Levi [address] [place] [phone] Luis Fernando Miles MD 6 [facility] 2[address] [place], [place] [address] documented as of this encounter Procedures Procedure [...] Organization Address City/State/[place] [address] [facility] Building [address] [...] - URINE ORDERABLES Performing Organization Address City/State/[facility] [place] [address] [facility] Building [address] [facility] documented in this encounter Visit Diagnoses Diagnosis Opiate dependence (H) Opioid type dependence, unspecified documented in this encounter Care Teams Animal Bounty Hunter Relationship Specialty Start Date End Date Edgar Alfredo MD PCP - General Family Practice 04/13/12 08/11/[address] [place] [address] [place] [phone] documented as of this encounter
--- OUTSIDE RECORDS SUMMARY | 2021-12-14 16:29 | XMS_ITS | Encounter Summary ---
:1980 Author Organization [place] Address [address] [facility] [place] [address] Care Team Providers Name Role Phone System, Provider Not In Primary Care Provider Unavailable Reason for Visit Reason Onset Date Comments Transfer Note 10/10/2014 Encounter Details Date Type Department Care Team Description 10/10/2014 Telephone [facility] Maternal Sintia Rasheed, Transfer Note Medicine Center RN [place] [address] [place] [address] Social History Tobacco Use Types Packs/Day Years Used Date Smoking Tobacco: Every Day Cigarettes 0.1 10 Smokeless Tobacco: Never Comments: 5 cigarettes a day Alcohol Use Standard Drinks/Week Comments No 0 (1 standard drink = 0.6 oz pure alcoho l) Sex Assigned at Date Recorded Female 01/14/2020 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 Syeda, Wire Wheeler, will contact patient to schedule upcoming appts with [facility]. documented in this encounter Plan of Treatment Upcoming Encounters Date Type Specialty Care Team Description 12/20/2021 Office Visit Wound Care Luis Camara DPM [address] [place], [place] [address] (Wo rk) 01/21/2022 PRE VISIT Gastroenterology Landon Warren, *-*WANDAIN G RECORDS*-* MD Luis Fernando 6 [facility] 2[address] [place] [address] (Wo rk) 01/21/2022 Office Visit Gastroenterology Juanis Levi [address] [place] [address] Luis Fernando Miles MD [address] [place] [address] documented as of this encounter Visit Diagnoses Not on filedocumented in this encounter Care Teams Multimedia Assistant Relationship Specialty Start Date End Date System, Provider Not In PCP - General Clinic 08/12/14 07/13/16 documented as of this encounter
--- OUTSIDE RECORDS SUMMARY | 2021-12-14 16:29 | XMS_ITS | Encounter Summary ---
:1980 Author Organization [place] Address [address] [facility] [place] [address] Care Team Providers Name Role Phone System, Provider Not In Primary Care Provider Unavailable Encounter Details Date Type Department Care Team Description 08/24/2014 Hospital Encounter [facility] Breanna Coleman Pre gnancy, Maternal MD Julian [facility] [address] [place], [place] [address] [address] [place], [place] [phone] (Work) [phone] Social History Tobacco Use Types Packs/Day Years Used Date Smoking Tobacco: Every Day Cigarettes 0.1 10 Smokeless Tobacco: Never Comments: 5 cigarettes a day Alcohol Use Standard Drinks/Week Comments No 0 (1 standard drink = 0.6 oz pure alcoho l) Sex Assigned at Date Recorded Female 01/14/2020 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 documented as of this encounter Medications [...] by 30 tablet 6 12/10/2012 08/30/19 17 Pdsaihpl-Qvn-Rn-FA mouth daily ( VITAMINS) 0.8 MG TABSIndications: [...] Visit Wound Care Luis Camara DPM [address] [place] [address] (Wo rk) 01/21/2022 PRE VISIT Gastroenterology Landon Warren, *-*INCOMIN G RECORDS*-* MD Luis Fernando [address] [place] [address] (Wo rk) 01/21/2022 Office Visit Gastroenterology Juanis Levi [address] [place] [phone] Luis Fernando Miles MD [address] [place] [phone] documented as of this encounter Procedures Procedure Name Priority Date/Time Associated Comments Diagnosis [facility] COMPREHENSIVE Routine 08/24/2014 11:29 , Res ults for this SINGLE AM CDT incidental procedure are i n the results section. documented in this encounter Results [facility] Comprehensive Single (08/24/2014 11:29 AM CDT) [...] MCCORMICK Study Date: 08/24 10:55am Pat. NO: [id number] Referring ??MD: KATY ROCHE Site: [facility] Data Analysis Assistant: Carlos Gordon RDMS : 1980 Age: 35 [...] (HC-AC-FL) Head / Face / Neck Biometry: Tow Truck Operator ?7.9 ?mm ? Nasal bone ?7.2 [...] that delivery will need to be at [facility] where NICU and Pediatric Cardiology as well [...] this patient and /or family members. Approximate irap-ye-xmsu time was 30 min utes. Procedure Note Breanna Coleman MD - 09/10/2016Format ting of this note might be different from the original. Comprehensive Pat. Name:Elizabeth MCCORMICK Date:08/25/19 15 10:55am Pat. NO: [id number] MD:YURIDIA ROCHE [facility]Carlos Gordon RDMS :1980Age:35 [...] (HC-AC-FL) Head / Face / Neck Biometry: Tow Truck Operator 7.9 mm Nasal bone 7.2 mm [...] that delivery will need to be at [facility] where NICU and Pediatric Cardiology as well [...] this patient and /or family members. Approximate ofah-qe-vkrp time was 30 min utes. IMPRESSION Single intrauterine at 24 1/7 weeks gestation by 11 week ultrasound. Sonographic biometry agrees with gestational age predicted by prior ultrasound. 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 The remainder of anatomy was adequately visualized and appeared normal. Breanna Coleman MD [facility] ORDERABLES documented in this encounter Visit Diagnoses Diagnosis , incidental state, incidental documented in this encounter Care Teams Cloth Doffer Relationship Specialty Start Date End Date System, Provider Not In PCP - General Clinic 08/12/14 07/13/16 documented as of this encounter
--- OUTSIDE RECORDS SUMMARY | 2021-12-14 16:29 | XMS_ITS | Encounter Summary ---
:1980 Author Organization [place] Address [address] [place] [address] Care Team Providers Name Role Phone Edgar Alfredo MD Primary Care Provider Reason for Visit Reason Comments Recheck Medication Encounter Details Date Type Department Care Team Description 06/23/2014 Office Visit [facility] Edgar Alfredo Cocaine a buse, unspecified (Primary Dx); Clinic Ashly Gauthier MD Opiate dependence (H) [address] [place] [address] [place] [phone] Social History Tobacco Use Types Packs/Day Years Used Date Smoking Tobacco: Every Day Cigarettes 0.1 10 Smokeless Tobacco: Never Comments: 5 cigarettes a day Alcohol Use Standard Drinks/Week Comments No 0 (1 standard drink = 0.6 oz pure alcoho l) Sex Assigned at Date Recorded Female 01/14/2020 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 Analysis performed by [facility] [address] [place] [address] Specimen Anatomical Collection Method Collection Time Receive d Time (Source) Location / / Volume Laterality Urine specimen 06/23/2014 4:42 PM 015 4:47 (specimen) CDT PM CDT Edgar Alfredo MD LAB - URINE ORDERABLES Performing Organization Address City/State/[place] [address] [facility] Building [address] [address] LAB Buprenorphine Qual Urine (06/23/2014 2:35 PM CDT) Patholo gist Method Time Signature Buprenorphine Positive [facility] LAB Qual Urine Specimen Anatomical Collection Method Collection Time Receive d Time (Source) Location / / Volume Laterality Urine specimen 06/23/2014 2:35 PM 015 2:40 (specimen) CDT PM CDT Edgar Alfredo MD LAB - URINE ORDERABLES Performing Organization Address City/[facility]/[place] [address] [facility] Building [address] [...] Organization Address City/State/[place] [address] [facility] Building [address] [facility] documented in this encounter Visit Diagnoses Diagnosis Cocaine abuse, unspecified - Primary Opiate dependence (H) Opioid type dependence, unspecified documented in this encounter Care Teams Lodging Manager Relationship Specialty Start Date End Date Edgar Alfredo MD PCP - General Family Practice 04/13/12 08/11/[address] [place] [address] documented as of this encounter
--- OUTSIDE RECORDS SUMMARY | 2021-12-14 16:29 | XMS_ITS | Encounter Summary ---
:1980 Author Organization [place] Address [address] [facility] [place] [address] Care Team Providers Name Role Phone System, Provider Not In Primary Care Provider Unavailable Reason for Visit Reason Onset Date Comments Ultrasound Comp US-heart defect Ultrasound echo-heart def ect Consult MFM-heart defect Erroneous encounter-disregard 08/25/2014 Encounter Details Date Type Department Care Team Description 08/24/2014 Office Visit [facility] Jared, Breanna Other kno wn or suspected abnormality, not elsewhere classified, affecting management of mother, antepartum condition or complication (Primary Dx); Maternal MD Julian ERRONEOUS ENCOUNTER--DISREGARD [facility] [address] [place], [place] [address] [address] [place], [place] [address] [phone] Social History Tobacco Use Types Packs/Day Years Used Date Smoking Tobacco: Every Day Cigarettes 0.1 10 Smokeless Tobacco: Never Comments: 5 cigarettes a day Alcohol Use Standard Drinks/Week Comments No 0 (1 standard drink = 0.6 oz pure alcoho l) Sex Assigned at Date Recorded Female 01/14/2020 10:57 AM GERIATRIC NURSE documented as of this encounter Progress Notes Winsome Allen RN - 08/25/2014 1:49 PM CDT This encounter was opened in error. Please disregard. documented in this encounter Plan of Treatment Upcoming Encounters Date Type Specialty Care Team Description 12/20/2021 Office Visit Wound Care Luis Camara, [place] [address] [place] [address] (Wo rk) 01/21/2022 PRE VISIT Gastroenterology Landon Warren, *-*INCOMIN G RECORDS*-* MD Luis Fernando [address] [place] [address] (Wo rk) 01/21/2022 Office Visit Gastroenterology Juanis Levi [address] [place] [address] Luis Fernando Miles MD [address] [place] [address] documented as of this encounter Visit Diagnoses Diagnosis Other known or suspected abnormali ty, not elsewhere classified, affecting management of mother, antepartum conditi on or complication - Primary ERRONEOUS ENCOUNTER--DISREGARD documented in this encounter Care Teams Server Software Engineer Relationship Specialty Start Date End Date System, Provider Not In PCP - General Clinic 08/12/14 07/13/16 documented as of this encounter
--- OUTSIDE RECORDS SUMMARY | 2021-12-14 16:29 | XMS_ITS | Encounter Summary ---
:1980 Author Organization [place] Address [address] [facility] [address] Care Team Providers Name Role Phone System, Provider Not In Primary Care Provider Unavailable Reason for Visit Reason Onset Date Comments Erroneous encounter-disregard 10/11/2014 Encounter Details Date Type Department Care Team Description 10/11/2014 Office Visit [facility] Edgar Alfredo ERRONEOUS Clinic Ashly Gauthier MD ENCOUNTER--DISREGARD [address] [place] (Primary Dx) [address] [place] [phone] Social History Tobacco Use Types Packs/Day Years Used Date Smoking Tobacco: Every Day Cigarettes 0.1 10 Smokeless Tobacco: Never Comments: 5 cigarettes a day Alcohol Use Standard Drinks/Week Comments No 0 (1 standard drink = 0.6 oz pure alcoho l) Sex Assigned at Date Recorded Female 01/14/2020 10:57 AM RADIO DIRECTOR documented as of this encounter Progress Notes Edgar Alfredo MD - 10/11/2014 2:25 PM CDT This encounter was opened in error. Please disregard. documented in this encounter Plan of Treatment Upcoming Encounters Date Type Specialty Care Team Description 12/20/2021 Office Visit Wound Care Luis Camara DPM [address] [place], [place] [address] (Wo rk) 01/21/2022 PRE VISIT Gastroenterology Landon Warren, *-*WANDAIN G RECORDS*-* MD Luis Fernando [address] [phone] (Wo rk) 01/21/2022 Office Visit Gastroenterology Juanis Levi [address] [place] [phone] Luis Fernando Miles MD [address] [address] documented as of this encounter Visit Diagnoses Diagnosis ERRONEOUS ENCOUNTER--DISREGARD - Primary documented in this encounter Care Teams Personal Protection Specialist Relationship Specialty Start Date End Date System, Provider Not In PCP - General Clinic 08/12/14 07/13/16 documented as of this encounter
--- OUTSIDE RECORDS SUMMARY | 2021-12-14 16:29 | XMS_ITS | Encounter Summary ---
:1980 Author Organization [place] Address [address] [facility] [place] [address] Care Team Providers Name Role Phone System, Provider Not In Primary Care Provider Unavailable Reason for Referral - Closed Specialty Diagnoses / Procedures Referred By Contact Refer red To Contact Diagnoses Unspecified complication of , antepartum Angelique Brewer MD [address] [place] [address] Referral ID Status Reason Start Date Expiration Date Visits Requ ested Visits Authorized [id number] Closed 08/12/2014 02/08/2015 1 1 Encounter Details Date Type Department Care Team Description 08/12/2014 [facility] Only [facility] Angelique Brewer MD Unspecified Maternal [address] complica tion of Medicine [place] [address] , [place] [address] (Primary Dx) [address] [phone] [place], [place] [address] (Work) [phone] Social History Tobacco Use Types Packs/Day Years Used Date Smoking Tobacco: Every Day Cigarettes 0.1 10 Smokeless Tobacco: Never Comments: 5 cigarettes a day Alcohol Use Standard Drinks/Week Comments No 0 (1 standard drink = 0.6 oz pure alcoho l) Sex Assigned at Date Recorded Female 01/14/2020 10:57 AM VIDEO COORDINATOR documented as of this encounter Plan of Treatment Upcoming Encounters Date Type Specialty Care Team Description 12/20/2021 Office Visit Wound Care Luis Camara, [place] [address] [place] [address] (Wo rk) 01/21/2022 PRE VISIT Gastroenterology Landon Warren, *-*INCOMIN G RECORDS*-* MD Luis Fernando [address] [place] [address] (Wo rk) 01/21/2022 Office Visit Gastroenterology Juanis Levi [address] [place] [address] Luis Fernando Miles MD [address] [address] Scheduled Referrals Name Type Priority Associated Diagnoses Order S chedule [facility] Referral Routine Unspecified complicatio n of Ordered: 08/12/2014 REFERRAL- , antepartum documented as of this encounter Visit Diagnoses Diagnosis Unspecified complication of , a ntepartum - Primary documented in this encounter Care Teams Risk Control Analyst Relationship Specialty Start Date End Date System, Provider Not In PCP - General Clinic 08/12/14 07/13/16 documented as of this encounter
--- OUTSIDE RECORDS SUMMARY | 2021-12-14 16:29 | XMS_ITS | Encounter Summary ---
:1980 Author Organization [place] Address [address] [facility] [place] [address] Care Team Providers Name Role Phone System, Provider Not In Primary Care Provider Unavailable Reason for Visit Reason Comments Ultrasound ECHO, comp u/s: possib le heart anomaly Consult MFM consult: possible heart anomaly Encounter Details Date Type Department Care Team Description 08/22/2014 PRE VISIT [facility] Sintia Rasheed ( ECHO, Maternal Medicine GENARO Ghotra comp u/s: possible [facility] heart anomaly); [address] Consult ([facility] consult: [place] [address] possible heart [phone] anomaly) Social History Tobacco Use Types Packs/Day Years Used Date Smoking Tobacco: Every Day Cigarettes 0.1 10 Smokeless Tobacco: Never Comments: 5 cigarettes a day Alcohol Use Standard Drinks/Week Comments No 0 (1 standard drink = 0.6 oz pure alcoho l) Sex Assigned at Date Recorded Female 01/14/2020 10:57 AM AUTO BUMPER 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 documented as of this encounter Plan of Treatment Upcoming Encounters Date Type Specialty Care Team Description 12/20/2021 Office Visit Wound Care Luis Camara DPM [address] [place] [address] (Wo rk) 01/21/2022 PRE VISIT Gastroenterology Landon Warren, *-*WANADIN G RECORDS*-* MD Luis Fernando [address] [facility] [address] [place] [address] (Wo rk) 01/21/2022 Office Visit Gastroenterology Juanis Levi [address] [place] [address] Luis Fernando Miles MD 516 [facility] [address] [place], [place] [id number] documented as of this encounter Visit Diagnoses Not on filedocumented in this encounter Care Teams Marketing Development Manager Relationship Specialty Start Date End Date System, Provider Not In PCP - General Clinic 08/12/14 07/13/16 documented as of this encounter
--- OUTSIDE RECORDS SUMMARY | 2021-12-14 16:29 | XMS_ITS | Encounter Summary ---
:1980 Author Organization [place] Address [address] [facility] [place] [address] Care Team Providers Name Role Phone System, Provider Not In Primary Care Provider Unavailable Reason for Referral - Closed Specialty Diagnoses / Procedures Referred By Contact Refer red To Contact Diagnoses Unspecified complication of , antepartum Breanna Coleman MD [address] [place], [place] [address] Referral ID Status Reason Start Date Expiration Date Visits Requ ested Visits Authorized [id number] Closed 08/24/2014 08/24/2015 1 1 Reason for Visit Reason Comments Ultrasound Encounter Details Date Type Department Care Team Description 08/24/2014 Orders Only [facility] Breanna Coleman Unspecifi ed complication of , antepartum (Primary Dx); Maternal MD Julian Abnormal heart rate or rhythm [facility] [address] [place], [place] [address] [address] [place], [place] [address] [phone] Social History Tobacco Use Types Packs/Day Years Used Date Smoking Tobacco: Every Day Cigarettes 0.1 10 Smokeless Tobacco: Never Comments: 5 cigarettes a day Alcohol Use Standard Drinks/Week Comments No 0 (1 standard drink = 0.6 oz pure alcoho l) Sex Assigned at Date Recorded Female 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 Plan to deliver ar [facility], expecting a full term delivery. Obtain cardiology consult, transthoracic Echo after . Start PGE 1 immediatley at . Thank you for allowing me to participate in Stephani's care. Feel free to contact me with questions. Sstm-qi-dbjg counseling time was [address] Janeen Ruiz Sales Apprentice Director, Cardiology [facility] documented in this encounter Plan of Treatment Upcoming Encounters Date Type Specialty Care Team Description 12/20/2021 Office Visit Wound Care Luis Camara DPM [address] [place] [address] (Reinaldo molina) 01/21/2022 PRE VISIT Gastroenterology Landon Warren, *-*WANDAIN G RECORDS*-* MD Luis Fernando [address] [address] (Wo rk) 01/21/2022 Office Visit Gastroenterology Juanis Levi [address] [place] [address] Luis Fernando Miles MD [address] [facility] [address] [place] [address] Scheduled Referrals Name Type Priority Associated Diagnoses Order S erendira [facility] Genetic Counseling Referral Routine Unspecified 1 Occ urrences starting complication of 08/24/2014 u ntil , antepartum 2015 documented as of this encounter Visit Diagnoses Diagnosis Unspecified complication of , a ntepartum - Primary Abnormal heart rate or rhythm Abnormality in heart rate or rhyth m, unspecified as to time of onset documented in this encounter Care Teams Remittance Clerk Relationship Specialty Start Date End Date System, Provider Not In PCP - General Clinic 08/12/14 07/13/16 documented as of this encounter
--- OUTSIDE RECORDS SUMMARY | 2021-12-14 16:29 | XMS_ITS | Encounter Summary ---
:1980 Author Organization [place] Address [facility] [place] [address] Care Team Providers Name Role Phone System, Provider Not In Primary Care Provider Unavailable Reason for Visit (Routine) - Closed Specialty Diagnoses / Procedures Referred By Contact Refer red To Contact Perinatology / Diagnoses * ID INS Zz Ur Peds Echo Lab Cardiology Procedures ECH COMPLETE* [address] [place] [address] Referral ID Status Reason Start Date Expiration Date Visits Requ ested Visits Authorized [id number] Closed 08/24/2014 08/24/2015 1 1 Encounter Details Date Type Department Care Team Description 08/24/2014 Hospital Encounter [facility] Echo/EKG Breanna Coleman MD [address] [place] [address] , [address] [facility] [place] [address] Social History Tobacco Use Types Packs/Day Years Used Date Smoking Tobacco: Every Day Cigarettes 0.1 10 Smokeless Tobacco: Never Comments: 5 cigarettes a day Alcohol Use Standard Drinks/Week Comments No 0 (1 standard drink = 0.6 oz pure alcoho l) Sex Assigned at Date Recorded Female 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/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 documented as of this encounter Medications at [...] by 30 tablet 6 12/10/2012 08/30/19 17 Fklhvlma-Xxs-Hz-FA mouth daily ( VITAMINS) 0.8 MG TABSIndications: [...] Visit Wound Care Luis Camara, [place] [address] [place] [address] (Wo rk) 01/21/2022 PRE VISIT Gastroenterology Landon Warren, *-*HEATHER G RECORDS*-* MD Luis Fernando [address] [place] [phone] (Wo rk) 01/21/2022 Office Visit Gastroenterology Juanis Levi [address] [place] [phone] Luis Fernando Miles MD [address] [place] [phone] documented as of this encounter Procedures Procedure [...] CDT PEDIATRIC ECHOCARDIOGRAM [facility]? s [facility] ? Gestational Age: 24 weeks Due Date: 11/18 ?? : Delivery Site: [facility] ??Tech: [email or web address] Diagnosis: Heart defect ? CONCLUSION: [...] ?? The plan is to deliver at [facility]. ??Expecting a full term delivery and starting [...] the systemic pulmonary venous connections. Ezra Rodríguez MD-[phone] ? Kyung Sheets MD-Pager [phone] Carlton Olivera MD-Pager ??[phone] or [phone] ? Blane Seay MD-Pager [phone] ? Carina Ruiz MD-Pager [phone] Tk Spain MD-Pager # [phone] Loretta Roberts MD Pager [phone] Brice Lloyd MD-Pager [phone] Breanna Coleman MD CV PEDS ECHO ORDERABLES documented in this encounter Visit Diagnoses Diagnosis , incidental state, incidental documented in this encounter Care Teams Marble Polisher Relationship Specialty Start Date End Date System, Provider Not In PCP - General Clinic 08/12/14 07/13/16 documented as of this encounter
--- OUTSIDE RECORDS SUMMARY | 2021-12-14 16:29 | XMS_ITS | Encounter Summary ---
:1980 Author Organization [place] Address [address] [facility] [place] [address] Care Team Providers Name Role Phone System, Provider Not In Primary Care Provider Unavailable Reason for Visit Reason Comments Recheck Medication Encounter Details Date Type Department Care Team Description 08/25/2014 Office Visit [facility] Edgar Alfredoplic ated opioid dependence (H) (Primary Dx); Clinic Ashly Gauthier MD Opiate dependence (H) [address] [place] [address] Social History Tobacco Use Types Packs/Day Years Used Date Smoking Tobacco: Every Day Cigarettes 0.1 10 Smokeless Tobacco: Never Comments: 5 cigarettes a day Alcohol Use Standard Drinks/Week Comments No 0 (1 standard drink = 0.6 oz pure alcoho l) Sex Assigned at Date Recorded Female 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 Gfebvzlj-Vgc-Pc-FA ( VITAMINS) 0.8 MG TABS Take 1 [...] list, Allergies, and Medical/Social/Surgical histories reviewed in [facility] andupdated as appropriate. ROS: Constitutional, HEENT, [...] 1 MONTH Edgar Alfredo MD, MD [facility] documented in this encounter [...] Visit Wound Care Luis Camara, [place] [address] [place], [place] [address] (Wo rk) 01/21/2022 PRE VISIT Gastroenterology Landon Warren, *-*WANDAIN G RECORDS*-* MD Luis Fernando [address] [place], [place] [address] [address] [place], [place] [address] (Wo rk) 01/21/2022 Office Visit Gastroenterology Juanis Levi [address] [place] [phone] Luis Fernando Miles MD [address] [facility] [address] [place] [address] documented as of this encounter Procedures Procedure [...] Organization Address City/State/[place] [address] [facility] Building [address] [...] Organization Address City/State/[place] [address] [facility] Building [address] LAB documented in this encounter Visit Diagnoses Diagnosis Uncomplicated opioid dependence (H) - Pr imary Opioid type dependence, unspecified documented in this encounter Care Teams Legal Document Specialist Relationship Specialty Start Date End Date System, Provider Not In PCP - General Clinic 08/12/14 07/13/16 documented as of this encounter
--- OUTSIDE RECORDS SUMMARY | 2021-12-14 16:29 | XMS_ITS | Encounter Summary ---
:1980 Author Organization [place] Address [address] [place] [address] Care Team Providers Name Role Phone Edgar Alfredo MD Primary Care Provider Reason for Visit Reason Onset Date Comments Refill Request 06/07/2014 Encounter Details Date Type Department Care Team Description 06/07/2014 Telephone [facility] Nithya Alfredo MD Refill Request [place] [address] [place], [place] [address] [address] [place] [phone] Social History Tobacco Use Types Packs/Day Years Used Date Smoking Tobacco: Every Day Cigarettes 0.1 10 Smokeless Tobacco: Never Comments: 5 cigarettes a day Alcohol Use Standard Drinks/Week Comments No 0 (1 standard drink = 0.6 oz pure alcoho l) Sex Assigned at Date Recorded Female 01/14/2020 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 documented as of this encounter Miscellaneous [...] Sig: Take 1.5 tab daily Vivian Spence, [facility] Lay Out Drafter documented in this encounter Plan of Treatment Upcoming Encounters Date Type Specialty Care Team Description 12/20/2021 Office Visit Wound Care Luis Camara DPM [address] [place], [place] [address] (Wo rk) 01/21/2022 PRE VISIT Gastroenterology Landon Warren, *-*INCOMIN G RECORDS*-* MD Luis Fernando [address] [place] [address] (Wo rk) 01/21/2022 Office Visit Gastroenterology Juanis Levi [address] [place] [phone] Luis Fernando Miles MD [address] [place] [phone] documented as of this encounter Visit Diagnoses Diagnosis Opiate dependence (H) - Primary Opioid type dependence, unspecified documented in this encounter Care Teams Marketing Content Manager Relationship Specialty Start Date End Date Edgar Alrfedo MD PCP - General Family Practice 04/13/12 08/11/[address] [phone] documented as of this encounter
--- OUTSIDE RECORDS SUMMARY | 2021-12-14 16:29 | XMS_ITS | Encounter Summary ---
:1980 Author Organization [place] Address [address] [place] [address] Care Team Providers Name Role Phone Edgar Alfredo MD Primary Care Provider Reason for Visit Reason Comments Recheck Medication Encounter Details Date Type Department Care Team Description 04/12/2014 Office Visit [facility] Edgar Alfredo de pendence (H) Clinic Ashly Gauthier MD [address] [place] [address] Social History Tobacco Use Types Packs/Day Years Used Date Smoking Tobacco: Every Day Cigarettes 0.1 10 Smokeless Tobacco: Never Comments: 5 cigarettes a day Alcohol Use Standard Drinks/Week Comments No 0 (1 standard drink = 0.6 oz pure alcoho l) Sex Assigned at Date Recorded Female 01/14/2020 10:57 AM STATOR TESTER documented as of this encounter Last Filed Vital Signs Vital Sign Reading Time Taken Comments Blood Pressure 115/66 04/12/2014 11:18 AM STATOR TESTER Pulse 101 04/12/2014 11:18 AM STATOR TESTER Temperature - - Respiratory Rate - - [...] relapse, and establishing a solid recovery program. OR TESTER documented in this encounter Nursing Notes Suyapa [...] cuff size: large Suyapa Rodriguez MLT, CMA OR TESTER documented in this encounter Plan of Treatment Upcoming Encounters Date Type Specialty Care Team Description 12/20/2021 Office Visit Wound Care Luis Camara DPM [address] [place], [place] [phone] (Reinaldo molina) 01/21/2022 PRE VISIT Gastroenterology Landon Warren, *-*HEATHER G RECORDS*-* MD Luis Fernando [address] [facility] [place], [place] [address] (Reinaldo molina) 01/21/2022 Office Visit Gastroenterology Juanis Levi [address] [place] [address] Luis Fernando Miles MD [address] [facility] [address] [place] [address] documented as of this encounter Procedures Procedure Name Priority Date/Time Associated Comments Diagnosis BUPRENORPHINE QUAL Routine 04/12/2014 11:08 Opiate dependence Results for this URINE AM STATOR TESTER (H) procedure are i n the results section. DRUG ABUSE SCREEN (NL, Routine 04/12/2014 11:08 Opiate depende nce Results for this RW) AM STATOR TESTER (H) procedure are i n the results section. documented in this encounter Results Buprenorphine Qual Urine (04/12/2014 11:08 AM STATOR TESTER) Patholo gist Method Time Signature Buprenorphine Positive [facility] LAB Qual Urine Specimen Anatomical Collection Method Collection Time Receive d Time (Source) Location / / Volume Laterality Urine specimen 04/12/2014 11:08 5 (specimen) AM STATOR TESTER 11:13 AM STATOR TESTER Edgar Alfredo MD LAB - URINE ORDERABLES Performing Organization Address City/State/[place] [address] [facility] Building [address] [facility] LAB Drug abuse screen (NL, RW) (04/12/2014 11:08 AM STATOR TESTER) Component Value Ref Test Analysis Performed Pathologis [...] Urine specimen 04/12/2014 11:08 5 (specimen) AM STATOR TESTER 11:13 AM STATOR TESTER Edgar Alfredo MD LAB - URINE ORDERABLES Performing Organization Address City/State/[place] [address] [facility] Building [address] [facility] documented in this encounter Visit Diagnoses Diagnosis Opiate dependence (H) Opioid type dependence, unspecified documented in this encounter Care Teams Conference Specialist Relationship Specialty Start Date End Date Edgar Alfredo MD PCP - General Family Practice 04/13/12 08/11/[address] [place] [phone] documented as of this encounter
--- OUTSIDE RECORDS SUMMARY | 2021-12-14 16:29 | XMS_ITS | Encounter Summary ---
:1980 Author Organization [place] Address [address] [facility] [place] [address] Care Team Providers Name Role Phone Edgar Alfredo MD Primary Care Provider Reason for Visit Reason Onset Date Comments Recheck Medication Erroneous encounter-disregard 06/02/2014 Encounter Details Date Type Department Care Team Description 06/02/2014 Office Visit [facility] Edgar Alfredo ERRONEOUS Clinic Ashly Gauthier MD ENCOUNTER--DISREGARD [address] [place] (Primary Dx) [address] [place] [phone] Social History Tobacco Use Types Packs/Day Years Used Date Smoking Tobacco: Every Day Cigarettes 0.1 10 Smokeless Tobacco: Never Comments: 5 cigarettes a day Alcohol Use Standard Drinks/Week Comments No 0 (1 standard drink = 0.6 oz pure alcoho l) Sex Assigned at Date Recorded Female 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 Please disregard. documented in this encounter Plan of Treatment Upcoming Encounters Date Type Specialty Care Team Description 12/20/2021 Office Visit Wound Care Luis Camara, [place] [address] [place], [place] [phone] (Wo rk) 01/21/2022 PRE VISIT Gastroenterology Landon Warren, *-*INCOMIN G RECORDS*-* MD Luis Fernando [address] [address] (Wo rk) 01/21/2022 Office Visit Gastroenterology Juanis Levi [address] [place] [address] Luis Fernando Milse MD [address] [phone] documented as of this encounter Visit Diagnoses Diagnosis ERRONEOUS ENCOUNTER--DISREGARD - Primary documented in this encounter Care Teams Yard Rigger Relationship Specialty Start Date End Date Edgar Alfredo MD PCP - General Family Practice 04/13/12 08/11/[address] [place] [address] documented as of this encounter
--- OUTSIDE RECORDS SUMMARY | 2021-12-14 16:29 | XMS_ITS | Encounter Summary ---
:1980 Author Organization [place] Address [address] [facility] [place] [address] Care Team Providers Name Role Phone System, Provider Not In Primary Care Provider Unavailable Reason for Referral - Closed Specialty Diagnoses / Procedures Referred By Contact Refer red To Contact Diagnoses Other known or suspected abnormality, not elsewhere classified, affecting management of mother, antepartum condition or complication Sintia Rasheed RN Referral ID Status Reason Start Date Expiration Date Visits Requ ested Visits Authorized [id number] Closed 08/12/2014 02/08/2015 1 1 Encounter Details Date Type Department Care Team Description 08/12/2014 Orders Only [facility] Sintia Rasheed , incidental Maternal GENARO Ghotra (Primary Dx) [facility] [address] [place], [place] [address] Social History Tobacco Use Types Packs/Day Years Used Date Smoking Tobacco: Every Day Cigarettes 0.1 10 Smokeless Tobacco: Never Comments: 5 cigarettes a day Alcohol Use Standard Drinks/Week Comments No 0 (1 standard drink = 0.6 oz pure alcoho l) Sex Assigned at Date Recorded Female 01/14/2020 10:57 AM RN OBGYN documented as of this encounter Plan of Treatment Upcoming Encounters Date Type Specialty Care Team Description 12/20/2021 Office Visit Wound Care Luis Camara DPM [address] [place], [place] [address] (Wo rk) 01/21/2022 PRE VISIT Gastroenterology Landon Warren, *-*WANDAIN G RECORDS*-* MD Luis Fernando [address] [place] [address] [address] [place] [address] (Wo rk) 01/21/2022 Office Visit Gastroenterology Juanis Levi [address] [place] [address] Luis Fernando Miles MD [address] [facility] [address] [place] [address] Scheduled Referrals Name Type Priority Associated Diagnoses Order S chejohnle [facility] Office Visit Referral Routine , incidental We ekly for 1 Occurrences starting 2014 until 08/13/2015 documented as of this encounter Results [facility] US Comprehensive Single (08/24/2014 11:29 AM CDT) [...] 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 The remainder of anatomy was adequately visualized and appeared normal. Narrative 08/26/2014 3:51 PM CDT Comprehensive Pat. Name: STEPHANI MCCORMICK Study Date: 08/24 10:55am Pat. NO: [id number] Referring ??MD: KATY ROCHE Site: [facility] [employer] Fabricator Or Welder: Carlos Gordon RDMS : 1980 Age: 35 [...] (HC-AC-FL) Head / Face / Neck Biometry: Research Program Intern ?7.9 ?mm ? Nasal bone ?7.2 ?mm [...] that delivery will need to be at [facility] where NICU and Pediatric Cardiology as well [...] this patient and /or family members. Approximate trwd-av-mtdv time was 30 min utes. Procedure Note Breanna Coleman MD - 09/10/2016Format ting of this note might be different from the original. Comprehensive Pat. Name:Elizabeth MCCORMICK Date:08/25/19 10:55am Pat. NO: [id number] MD:YURIDIA ROCHE [facility]Carlos Gordon RDMS :1980Age:35 INDICATION Congenital Heart [...] (HC-AC-FL) Head / Face / Neck Biometry: Research Program Intern 7.9 mm Nasal bone 7.2 mm Amniotic [...] that delivery will need to be at [facility] where NICU and Pediatric Cardiology as well [...] this patient and /or family members. Approximate nhlz-wf-phdr time was 30 min utes. IMPRESSION Single intrauterine at 24 1/7 weeks gestation by 11 week ultrasound. Sonographic biometry agrees with gestational age predicted by prior ultrasound. 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 The remainder of anatomy was adequately visualized and appeared normal. Breanna Coleman MD [facility] US ORDERABLES Echo Complete-Peds Cardiology (08/24/2014 10:16 AM CDT) Anatomical Region Laterality Modality Ultrasound Specimen (Source) Anatomical Location Collection Method / Collectio n Time Received Time / Laterality Volume Narrative 08/25/2014 1:37 PM CDT PEDIATRIC ECHOCARDIOGRAM [facility]? s [facility] ? Gestational Age: 24 weeks Due Date: 11/18 ?? : Delivery Site: [facility] ??Tech: [email or web address] Diagnosis: Heart defect ? CONCLUSION: [...] the systemic pulmonary venous connections. Ezra Rodríguez MD-[phone] ? Kyung Sheets MD-Pager [phone] Carlton Olivera MD-Pager ??[phone] or [phone] ? Blane Seay MD-Pager [phone] ? Carina Ruiz MD-Pager [phone] Tk Spain MD-Pager # [phone] Loretta Roberts MD Pager [phone] Brice Lloyd MD-Pager [phone] Breanna Coleman MD [facility] PED[facility] ECHO ORDERABLES documented in this encounter Visit Diagnoses Diagnosis , incidental - Primary state, incidental , incidental state, incidental , incidental state, incidental documented in this encounter Care Teams Airplane Pilot Helper Relationship Specialty Start Date End Date System, Provider Not In PCP - General Clinic 08/12/14 07/13/16 documented as of this encounter
--- OUTSIDE RECORDS SUMMARY | 2021-12-14 16:29 | XMS_ITS | Encounter Summary ---
:1980 Author Organization [place] Address [address] [facility] [place] [address] Care Team Providers Name Role Phone System, Provider Not In Primary Care Provider Unavailable Reason for Visit Reason Comments Recheck Medication Encounter Details Date Type Department Care Team Description 09/20/2014 Office Visit [facility] Edgar Alfredoplic ated opioid dependence (H) (Primary Dx); Clinic Ashly Gauthier MD Opiate dependence (H) [address] [place] [address] Social History Tobacco Use Types Packs/Day Years Used Date Smoking Tobacco: Every Day Cigarettes 0.1 10 Smokeless Tobacco: Never Comments: 5 cigarettes a day Alcohol Use Standard Drinks/Week Comments No 0 (1 standard drink = 0.6 oz pure alcoho l) Sex Assigned at Date Recorded Female 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 Pgybiisp-Jtu-Rn-FA ( VITAMINS) 0.8 MG TABS Take 1 [...] Medical/Social/Surgical histories reviewed in [facility] andupdated as appropriate. ROS: Constitutional, HEENT, cardiovascular, [...] RE-CHECK 5 WEEKS Edgar Alfredo MD, MD [facility] documented in this [...] Visit Wound Care Luis Camara, [place] [address] [place] [address] (Wo rk) 01/21/2022 PRE VISIT Gastroenterology Landon Warren, *-*HEATHER G RECORDS*-* MD Luis Fernando [address] [place] [address] (Wo rk) 01/21/2022 Office Visit Gastroenterology Juanis Levi [address] [place] [address] Luis Fernando Miles MD [address] [place] [phone] documented as of this encounter Procedures Procedure [...] Organization Address City/State/[place] [address] [facility] Building [address] [...] [facility] [place] [address] [facility] [address] LAB documented in this encounter Visit Diagnoses Diagnosis Uncomplicated opioid dependence (H) - Pr imary Opioid type dependence, unspecified documented in this encounter Care Teams Terrazzo Supervisor Relationship Specialty Start Date End Date System, Provider Not In PCP - General Clinic 08/12/14 07/13/16 documented as of this encounter
--- OUTSIDE RECORDS SUMMARY | 2021-12-14 16:29 | XMS_ITS | Encounter Summary ---
:1980 Author Organization [place] Address [address] [facility] [place] [address] Care Team Providers Name Role Phone Edgar Alfredo MD Primary Care Provider Reason for Visit Reason Comments Recheck Medication Encounter Details Date Type Department Care Team Description 07/28/2014 Office Visit [facility] Edgar Alfredo Uncomplic ated opioid dependence (H) (Primary Dx); Clinic Ashly Gauthier MD Opiate dependence (H) [address] [place] [address] Social History Tobacco Use Types Packs/Day Years Used Date Smoking Tobacco: Every Day Cigarettes 0.1 10 Smokeless Tobacco: Never Comments: 5 cigarettes a day Alcohol Use Standard Drinks/Week Comments No 0 (1 standard drink = 0.6 oz pure alcoho l) Sex Assigned at Date Recorded Female 01/14/2020 10:57 AM TALENT ACQUISITION COORDINATOR documented as of this encounter Last [...] Body Mass Index 30.97 01/07/2013 11:29 AM TALENT ACQUISITION COORDINATOR documented in this encounter Progress Notes Edgar [...] Recovery program has been: ignored. GOES TO [facility] BUT WOULD BENEFIT FROM A MORE ACTIVE [...] recovery meetings:not at all. BUT HAS A TENRIISM ?? Problem list and histories reviewed & [...] Take 1 tablet by mouth daily ??? Hwypvdjv-Hul-Gm-FA ( VITAMINS) 0.8 MG TABS Take 1 [...] list, Allergies, and Medical/Social/Surgical histories reviewed in [facility] andupdated as appropriate. ROS: Constitutional, [...] in 1 month Edgar Alfredo MD, MD [facility] [...] Office Visit Wound Care Luis Camara DPM [address] [place] [phone] (Wo rk) 01/21/2022 PRE VISIT Gastroenterology Landon Warren, *-*WANDAIN G RECORDS*-* MD Luis Fernando 6 [facility] [address] [place], [place] [address] (Wo rk) 01/21/2022 Office Visit Gastroenterology Juanis Levi [address] [place] [phone] Luis Fernando Miles MD [address] [place] [phone] documented as of this encounter Procedures Procedure [...] Organization Address City/State/[place] [address] [facility] Building [address] [...] Organization Address City/State/[place] [address] [facility] [address] [place] LAB documented in this encounter Visit Diagnoses Diagnosis Uncomplicated opioid dependence (H) - Pr imary Opioid type dependence, unspecified documented in this encounter Care Teams Building Associate Relationship Specialty Start Date End Date Edgar Alfredo MD PCP - General Family Practice 04/13/12 08/11/[address] [place] [address] documented as of this encounter
--- OUTSIDE RECORDS SUMMARY | 2021-12-14 16:29 | XMS_ITS | Encounter Summary ---
:1980 Author Organization [place] Address [address] [facility] [place] [address] Care Team Providers Name Role Phone System, Provider Not In Primary Care Provider Unavailable Reason for Visit Reason Comments Recheck Medication Encounter Details Date Type Department Care Team Description 11/03/2014 Office Visit [facility] Edgar Alfredoplic ated opioid dependence (H) (Primary Dx); Clinic Ashly Gauthier MD Opiate dependence (H) [address] [place] [address] Social History Tobacco Use Types Packs/Day Years Used Date Smoking Tobacco: Every Day Cigarettes 0.1 10 Smokeless Tobacco: Never Comments: 5 cigarettes a day Alcohol Use Standard Drinks/Week Comments No 0 (1 standard drink = 0.6 oz pure alcoho l) Sex Assigned at Date Recorded Female 01/14/2020 10:57 AM PUBLIC WEIGHER documented as of this encounter Last Filed [...] Take 1 tablet by mouth daily ??? Yzghrwlf-Ftq-Zg-FA ( VITAMINS) 0.8 MG TABS Take 1 [...] list, Allergies, and Medical/Social/Surgical histories reviewed in [facility] andupdated as appropriate. ROS: Constitutional, HEENT, [...] in 1 MONTH Edgar Alfredo MD, MD [facility] documented in this encounter Nursing [...] Visit Wound Care Luis Camara DPM [address] [place] [address] (Wo rk) 01/21/2022 PRE VISIT Gastroenterology Landon Warren, *-*HEATHER Barriga RECORDS*-* MD Luis Fernando [address] [facility] [address] [place] [address] (Wo rk) 01/21/2022 Office Visit Gastroenterology Juanis Levi [address] [place] [phone] Luis Fernando Miles MD [address] [facility] [address] [place], [place] [phone] documented as of this encounter Procedures Procedure [...] Organization Address City/State/[place] [address] [facility] Building [address] [facility] [address] [place] LAB Drug [...] Organization Address City/State/[place] [address] [facility] [address] [place] LAB documented in this encounter Visit Diagnoses Diagnosis Uncomplicated opioid dependence (H) - Pr imary Opioid type dependence, unspecified documented in this encounter Care Teams Tool Planer Set Up Operator Relationship Specialty Start Date End Date System, Provider Not In PCP - General Clinic 08/12/14 07/13/16 documented as of this encounter
--- OUTSIDE RECORDS SUMMARY | 2021-12-14 16:29 | XMS_ITS | Encounter Summary ---
:1980 Author Organization [place] Address [address] [facility] [place] [address] Care Team Providers Name Role Phone System, Provider Not In Primary Care Provider Unavailable Reason for Visit - Closed Specialty Diagnoses / Procedures Referred By Contact Refer red To Contact Diagnoses Unspecified complication of , antepartum Breanna Coleman MD [address] [place] [phone] Referral ID Status Reason Start Date Expiration Date Visits Requ ested Visits Authorized [id number] Closed 08/24/2014 08/24/2015 1 1 Encounter Details Date Type Department Care Team Description 08/24/2014 Office Visit [facility] Breanna Coleman MD [address] [place] [address] Unspecified Maternal Goldie Edwards GC [address] [place] [address] complication of Medicine Center , a ntepartum [place] [address] [place], [place] [address] Social History Tobacco Use Types Packs/Day Years Used Date Smoking Tobacco: Every Day Cigarettes 0.1 10 Smokeless Tobacco: Never Comments: 5 cigarettes a day Alcohol Use Standard Drinks/Week Comments No 0 (1 standard drink = 0.6 oz pure alcoho l) Sex Assigned at Date Recorded Female 01/14/2020 10:57 AM SCRAP SORTER documented as of this encounter Progress [...] Time spent: 10 min Goldie Edwards MS, [facility] Certified Genetic Counselor [phone] documented in this encounter Plan of Treatment Upcoming Encounters Date Type Specialty Care Team Description 12/20/2021 Office Visit Wound Care Luis Camara, [place] [address] [place] [address] (Wo rk) 01/21/2022 PRE VISIT Gastroenterology Landon Warren, *-*HEATHER Barriga RECORDS*-* MD Luis Fernando [address] [place] [phone] (Wo rk) 01/21/2022 Office Visit Gastroenterology Juanis Levi [address] [place] [phone] Luis Fernando Miles MD [address] [place] [phone] documented as of this encounter Visit Diagnoses Diagnosis Unspecified complication of , a ntepartum documented in this encounter Care Teams Bank Vault Clerk Relationship Specialty Start Date End Date System, Provider Not In PCP - General Clinic 08/12/14 07/13/16 documented as of this encounter
--- OUTSIDE RECORDS SUMMARY | 2021-12-14 16:30 | XMS_ITS | Encounter Summary ---
:1980 Author Organization [place] Address [address] [place] [address] Care Team Providers Name Role Phone Edgar Alfredo MD Primary Care Provider Reason for Visit Reason Comments Recheck Medication Encounter Details Date Type Department Care Team Description 07/08/2013 Office Visit [facility] Edgar Alfredo de pendence (H) Clinic Ashly Gauthier MD [address] [place] [address] [place] [address] Social History Tobacco Use Types Packs/Day Years Used Date Smoking Tobacco: Every Day Cigarettes 0.1 10 Smokeless Tobacco: Never Comments: 5 cigarettes a day Alcohol Use Standard Drinks/Week Comments No 0 (1 standard drink = 0.6 oz pure alcoho l) Sex Assigned at Date Recorded Female 01/14/2020 10:57 AM IRONMOLDER documented as of this encounter Progress Notes Edgar Alfredo MD - 07/08/2013 2:25 PM CDT Patient unable to make appointment due to housing meeting Will refill Drug screen neg Reduce dose next visit documented in this encounter Plan of Treatment Upcoming Encounters Date Type Specialty Care Team Description 12/20/2021 Office Visit Wound Care Luis Camara, [place] [address] [place], [place] [address] (Wo rk) 01/21/2022 PRE VISIT Gastroenterology Landon Warren, *-*WANDAIN G RECORDS*-* MD Luis Fernando 6 [facility] [address] [place], [place] [address] (Wo rk) 01/21/2022 Office Visit Gastroenterology Juanis Levi [address] [place] [address] Luis Fernando Miles MD [address] [address] documented as of this encounter Visit Diagnoses Diagnosis Opiate dependence (H) Opioid type dependence, unspecified documented in this encounter Care Teams Md Pediatric Allergist Relationship Specialty Start Date End Date Edgar Alfredo MD PCP - General Family Practice 04/13/12 08/11/14 [address] [facility] [address] [place] [address] documented as of this encounter
--- OUTSIDE RECORDS SUMMARY | 2021-12-14 16:30 | XMS_ITS | Encounter Summary ---
:1980 Author Organization [place] Address [address] [facility] [place] [address] Care Team Providers Name Role Phone Edgar Alfredo MD Primary Care Provider Encounter Details Date Type Department Care Team Description 05/28/2013 Medical Correspondence [facility] Edgar Alfredo MD Denial of Clinic Ashly Gauthier MD Buprenorphine [address]MG [address] 05/28/[address] [facility], [address] [place] [address] Social History Tobacco Use Types Packs/Day Years Used Date Smoking Tobacco: Every Day Cigarettes 0.1 10 Smokeless Tobacco: Never Comments: 5 cigarettes a day Alcohol Use Standard Drinks/Week Comments No 0 (1 standard drink = 0.6 oz pure alcoho l) Sex Assigned at Date Recorded Female 01/14/2020 10:57 AM MARKETING SUMMER INTERN documented as of this encounter Plan of Treatment Upcoming Encounters Date Type Specialty Care Team Description 12/20/2021 Office Visit Wound Care Luis Camara DPM [address] [place], [place] [address] (Wo rk) 01/21/2022 PRE VISIT Gastroenterology Landon Warren, *-*HEATHER Barriga RECORDS*-* MD Luis Fernando [address] [facility] [address] [place] [address] (Wo rk) 01/21/2022 Office Visit Gastroenterology Juanis Levi [address] [place] [phone] Luis Fernando Miles MD [address] [facility] [address] [place], [place] [address] documented as of this encounter Visit Diagnoses Not on filedocumented in this encounter Care Teams Freight Car Repairer Relationship Specialty Start Date End Date Edgar Alfredo MD PCP - General Family Practice 04/13/12 08/11/14 [address] [facility] [address] [place] [address] documented as of this encounter
--- OUTSIDE RECORDS SUMMARY | 2021-12-14 16:30 | XMS_ITS | Encounter Summary ---
:1980 Author Organization [place] Address [address] [facility] [place] [address] Care Team Providers Name Role Phone Edgar Alfredo MD Primary Care Provider Reason for Visit Reason Comments Recheck Medication Encounter Details Date Type Department Care Team Description 02/15/2014 Office Visit [facility] Edgar Alfredo de pendence (H) Clinic Ashly Gauthier MD [address] [place] [address] [place] [address] Social History Tobacco Use Types Packs/Day Years Used Date Smoking Tobacco: Every Day Cigarettes 0.1 10 Smokeless Tobacco: Never Comments: 5 cigarettes a day Alcohol Use Standard Drinks/Week Comments No 0 (1 standard drink = 0.6 oz pure alcoho l) Sex Assigned at Date Recorded Female 01/14/2020 10:57 AM DAIRY MACHINE OPERATOR FARMWORKER documented as of this encounter Last Filed Vital Signs Vital Sign Reading Time Taken Comments Blood Pressure 130/86 02/15/2014 11:30 AM DAIRY MACHINE OPERATOR FARMWORKER Pulse 87 02/15/2014 11:30 AM DAIRY MACHINE OPERATOR FARMWORKER Temperature - - Respiratory Rate - - [...] relapse, and establishing a solid recovery program. Y MACHINE OPERATOR FARMWORKER documented in this encounter Nursing Notes Suyapa [...] cuff size: large Suyapa Rodriguez MLT, CMA Y MACHINE OPERATOR FARMWORKER documented in this encounter Plan of Treatment Upcoming Encounters Date Type Specialty Care Team Description 12/20/2021 Office Visit Wound Care Luis Camara DPM [address] [place] [address] (Wo rk) 01/21/2022 PRE VISIT Gastroenterology Landon Warren, *-*WANDAIN G RECORDS*-* MD Luis Fernando [address] [address] (Wo rk) 01/21/2022 Office Visit Gastroenterology Juanis Levi [address] [place] [address] Luis Fernando Miles MD [address] [facility] [address] [place], [place] [phone] documented as of this encounter Procedures Procedure Name Priority Date/Time Associated Comments Diagnosis BUPRENORPHINE QUAL Routine 02/15/2014 11:22 Opiate dependence Results for this URINE AM DAIRY MACHINE OPERATOR FARMWORKER (H) procedure are i n the results section. DRUG ABUSE SCREEN (NL, Routine 02/15/2014 11:22 Opiate depende nce Results for this RW) AM DAIRY MACHINE OPERATOR FARMWORKER (H) procedure are i n the results section. documented in this encounter Results Buprenorphine Qual Urine (02/15/2014 11:22 AM DAIRY MACHINE OPERATOR FARMWORKER) Patholo gist Method Time Signature Buprenorphine Positive [facility] LAB Qual Urine Specimen Anatomical Collection Method Collection Time Receive d Time (Source) Location / / Volume Laterality Urine specimen 02/15/2014 11:22 4 (specimen) AM DAIRY MACHINE OPERATOR FARMWORKER 11:27 AM DAIRY MACHINE OPERATOR FARMWORKER Edgar Alfredo MD LAB - URINE ORDERABLES Performing Organization Address City/State/[place] [address] [facility] Building [address] [place] LAB Drug abuse screen (NL, RW) (02/15/2014 11:22 AM DAIRY MACHINE OPERATOR FARMWORKER) Component Value Ref Test Analysis Performed Pathologis [...] Urine specimen 02/15/2014 11:22 4 (specimen) AM DAIRY MACHINE OPERATOR FARMWORKER 11:27 AM DAIRY MACHINE OPERATOR FARMWORKER Edgar Alfredo MD LAB - URINE ORDERABLES Performing Organization Address City/State/[place] [address] [facility] Building [address] [facility] LAB documented in this encounter Visit Diagnoses Diagnosis Opiate dependence (H) Opioid type dependence, unspecified documented in this encounter Care Teams Vice President Commercial Bank Relationship Specialty Start Date End Date Edgar Alfredo MD PCP - General Family Practice 04/13/12 08/11/[address] [place] [address] documented as of this encounter
--- OUTSIDE RECORDS SUMMARY | 2021-12-14 16:30 | XMS_ITS | Encounter Summary ---
:1980 Author Organization [place] Address [address] [facility] [place] [address] Care Team Providers Name Role Phone Edgar Alfredo MD Primary Care Provider Reason for Visit Reason Comments Recheck Medication Encounter Details Date Type Department Care Team Description 11/22/2013 Office Visit [facility] Edgar Alfredo de pendence (H) Clinic Ashly Gauthier MD [address] [place] [phone] Social History Tobacco Use Types Packs/Day Years Used Date Smoking Tobacco: Every Day Cigarettes 0.1 10 Smokeless Tobacco: Never Comments: 5 cigarettes a day Alcohol Use Standard Drinks/Week Comments No 0 (1 standard drink = 0.6 oz pure alcoho l) Sex Assigned at Date Recorded Female 01/14/2020 10:57 AM PLANER HAND documented as of this encounter Last Filed [...] TAKING MEDICATION PRESCRIBED VERY STRESSED LIFE WITH HOSPITALITY MANAGER There has been: moderate craving. Cues to [...] Visit Wound Care Luis Camara DPM [address] [place] [address] (Wo rk) 01/21/2022 PRE VISIT Gastroenterology Landon [place], *-*HEATHER G RECORDS*-* MD Luis Fernando [address] [facility] [address] [place] [address] (Wo rk) 01/21/2022 Office Visit Gastroenterology Juanis Levi [address] [place] [phone] Luis Fernando Miles MD [address] [facility] [address] [place], [place] [phone] documented as of this encounter Procedures Procedure [...] Organization Address City/State/[place] [address] [facility] Building [address] [...] Organization Address City/State/[place] [address] [facility] Building [address] [facility] documented in this encounter Visit Diagnoses Diagnosis Opiate dependence (H) Opioid type dependence, unspecified documented in this encounter Care Teams Mine Safety Engineer Relationship Specialty Start Date End Date Edgar Alfredo MD PCP - General Family Practice 04/13/12 08/11/[address] [place] [address] documented as of this encounter
--- OUTSIDE RECORDS SUMMARY | 2021-12-14 16:30 | XMS_ITS | Encounter Summary ---
:1980 Author Organization [place] Address [address] [facility] [place] [address] Care Team Providers Name Role Phone Edgar Alfredo MD Primary Care Provider Reason for Visit Reason Onset Date Comments Medication Request 05/17/2013 Encounter Details Date Type Department Care Team Description 05/17/2013 Telephone [facility] Edgar Alfredo Ma rk, Medication Request Ashly VÁSQUEZ [address] [place] [phone] (Wo rk) Social History Tobacco Use Types Packs/Day Years Used Date Smoking Tobacco: Every Day Cigarettes 0.1 10 Smokeless Tobacco: Never Comments: 5 cigarettes a day Alcohol Use Standard Drinks/Week Comments No 0 (1 standard drink = 0.6 oz pure alcoho l) Sex Assigned at Date Recorded Female 01/14/2020 10:57 AM FPGA ENGINEER documented as of this encounter Miscellaneous [...] see her on 05/31. TY Crista Peoples, Double Bass Player Telephone Encounter - Edgar Alfredo MD - 05/17/2013 2:52 PM CDT Advised appointment 05/31/13 4 day bridge ordered Telephone Encounter - Natasha Lee - 05/17/2013 12:11 PM CDT Pt called clinic. Pt stated that she can not make her about today due to thyroid issues and would like a Bridge until her next appt. Pt can be reached at [phone] documented in this encounter Plan of Treatment Upcoming Encounters Date Type Specialty Care Team Description 12/20/2021 Office Visit Wound Care Luis Camara, [place] [address] [place], [place] [phone] (Wo rk) 01/21/2022 PRE VISIT Gastroenterology Landon [place], *-*WANDAIN G RECORDS*-* MD Luis Fernando [address] [place] [address] (Wo rk) 01/21/2022 Office Visit Gastroenterology Juanis Levi [address] [place] [phone] Luis Fernando Miles MD [address] [place] [phone] documented as of this encounter Visit Diagnoses Diagnosis Opiate dependence (H) - Primary Opioid type dependence, unspecified documented in this encounter Care Teams Mop Man Relationship Specialty Start Date End Date Edgar Alfredo MD PCP - General Family Practice 04/13/12 08/11/14 [address] [facility] [address] [place] [phone] documented as of this encounter
--- OUTSIDE RECORDS SUMMARY | 2021-12-14 16:30 | XMS_ITS | Encounter Summary ---
:1980 Author Organization [place] Address [address] [place] [address] Care Team Providers Name Role Phone Edgar Alfredo MD Primary Care Provider Reason for Visit Reason Onset Date Comments Appointment 11/09/2013 Pt requesting a soon er Appointment Encounter Details Date Type Department Care Team Description 11/09/2013 Telephone [facility] Edgar Alfredo, [place] ointment (Pt Clinic Ashly VÁSQUEZ requesting a sooner [address] [place] Appointment) [address] [place] [phone] (Wo rk) Social History Tobacco Use Types Packs/Day Years Used Date Smoking Tobacco: Every Day Cigarettes 0.1 10 Smokeless Tobacco: Never Comments: 5 cigarettes a day Alcohol Use Standard Drinks/Week Comments No 0 (1 standard drink = 0.6 oz pure alcoho l) Sex Assigned at Date Recorded Female 01/14/2020 10:57 AM MEDIA ARTS PROFESSOR documented as of this encounter Miscellaneous [...] Description 12/20/2021 Office Visit Wound Care Lusi Camara, [place] [address] [place] [address] (Wo rk) 01/21/2022 PRE VISIT Gastroenterology Landon [place], *-*HEATHER G RECORDS*-* MD Luis Fernando [address] [place] [phone] (Wo rk) 01/21/2022 Office Visit Gastroenterology Juanis Levi [address] [place] [phone] Luis Fernando Miles MD [address] [place] [phone] documented as of this encounter Visit Diagnoses Not on filedocumented in this encounter Care Teams Sap Treasury Consultant Relationship Specialty Start Date End Date Edgar Alfredo MD PCP - General Family Practice 04/13/12 08/11/14 [address] [facility] [address] [place] [phone] documented as of this encounter
--- OUTSIDE RECORDS SUMMARY | 2021-12-14 16:30 | XMS_ITS | Encounter Summary ---
:1980 Author Organization [place] Address [address] [facility] [place] [address] Care Team Providers Name Role Phone Edgar Alfredo MD Primary Care Provider Reason for Visit Reason Comments Recheck Medication Encounter Details Date Type Department Care Team Description 08/02/2013 Office Visit [facility] Edgar Alfredo de pendence (H) Clinic Ashly Gauthier MD [address] [place] [phone] Social History Tobacco Use Types Packs/Day Years Used Date Smoking Tobacco: Every Day Cigarettes 0.1 10 Smokeless Tobacco: Never Comments: 5 cigarettes a day Alcohol Use Standard Drinks/Week Comments No 0 (1 standard drink = 0.6 oz pure alcoho l) Sex Assigned at Date Recorded Female 01/14/2020 10:57 AM CLINICAL SUPPORT MANAGER documented as of this encounter Last [...] completed using cuff size: miguelangel Rodriguez CMA, DITCHING MACHINE OPERATOR documented in this encounter Plan of Treatment Upcoming Encounters Date Type Specialty Care Team Description 12/20/2021 Office Visit Wound Care Luis Camara, [place] [address] [place] [address] (Wo rk) 01/21/2022 PRE VISIT Gastroenterology Landon [place], *-*INCOMIN G RECORDS*-* MD Luis Fernando [address] [place] [address] [address] [place], [place] [address] (Wo rk) 01/21/2022 Office Visit Gastroenterology Juanis Levi [address] [place] [address] Luis Fernando Miles MD 6 [facility] [address] [place] [address] documented as of this encounter [...] Organization Address City/State/[place] [address] [facility] Building [address] [...] Organization Address City/State/[place] [address] [facility] Building [address] [facility] documented in this encounter Visit Diagnoses Diagnosis Opiate dependence (H) Opioid type dependence, unspecified documented in this encounter Care Teams [employer] Relationship Specialty Start Date End Date Edgar Alfredo MD PCP - General Family Practice 04/13/12 08/11/[address] [place] [address] documented as of this encounter
--- OUTSIDE RECORDS SUMMARY | 2021-12-14 16:30 | XMS_ITS | Encounter Summary ---
:1980 Author Organization [place] Address [address] [facility] [place] [address] Care Team Providers Name Role Phone Edgar Alfredo MD Primary Care Provider Reason for Visit Reason Onset Date Comments Recheck Medication Erroneous encounter-disregard 05/17/2013 Encounter Details Date Type Department Care Team Description 05/17/2013 Office Visit [facility] Edgar Alfredo de pendence (H) (Primary Dx); Clinic Ashly Gauthier MD ERRONEOUS ENCOUNTER--DISREGARD [address] [place] [phone] Social History Tobacco Use Types Packs/Day Years Used Date Smoking Tobacco: Every Day Cigarettes 0.1 10 Smokeless Tobacco: Never Comments: 5 cigarettes a day Alcohol Use Standard Drinks/Week Comments No 0 (1 standard drink = 0.6 oz pure alcoho l) Sex Assigned at Date Recorded Female 01/14/2020 10:57 AM MICROELECTRONICS ENGINEER documented as of this encounter Progress Notes Edgar Alfredo MD - 05/17/2013 3:29 PM CDT This encounter was opened in error. Please disregard. documented in this encounter Plan of Treatment Upcoming Encounters Date Type Specialty Care Team Description 12/20/2021 Office Visit Wound Care Luis Camara, [place] [address] [place], [place] [address] (Wo rk) 01/21/2022 PRE VISIT Gastroenterology Landon [place], *-*INCOMIN G RECORDS*-* MD Luis Fernando [address] [facility] [address] [place] [address] (Wo rk) 01/21/2022 Office Visit Gastroenterology Juanis Levi [address] [place] [phone] Luis Fernando Miles MD [address] [phone] documented as of this encounter Visit Diagnoses Diagnosis Opiate dependence (H) - Primary Opioid type dependence, unspecified ERRONEOUS ENCOUNTER--DISREGARD documented in this encounter Care Teams Flatwork Folder Relationship Specialty Start Date End Date Edgar Alfredo MD PCP - General Family Practice 04/13/12 08/11/14 [address] [facility] 700 [place] [phone] documented as of this encounter
--- OUTSIDE RECORDS SUMMARY | 2021-12-14 16:30 | XMS_ITS | Encounter Summary ---
:1980 Author Organization [place] Address [address] [facility] [place] [address] Care Team Providers Name Role Phone Edgar Alfredo MD Primary Care Provider Reason for Visit Reason Onset Date Comments Medication Request 11/15/2013 subutex Encounter Details Date Type Department Care Team Description 11/15/2013 Telephone [facility] Edgar Alfredo, [facility] ication Request Clinic Ashly VÁSQUEZ (subutex) [address] [place] [phone] (Wo rk) Social History Tobacco Use Types Packs/Day Years Used Date Smoking Tobacco: Every Day Cigarettes 0.1 10 Smokeless Tobacco: Never Comments: 5 cigarettes a day Alcohol Use Standard Drinks/Week Comments No 0 (1 standard drink = 0.6 oz pure alcoho l) Sex Assigned at Date Recorded Female 01/14/2020 10:57 AM TAX SERVICES PROFESSIONAL documented as of this encounter [...] her appt on 11/22. Call back # [phone]. Suyapa Rodriguez, PRODUCT BUILDER, DON documented in this encounter Plan of Treatment Upcoming Encounters Date Type Specialty Care Team Description 12/20/2021 Office Visit Wound Care [facility] Luis Lex, DPM [address] [place], [place] [phone] (Wo rk) 01/21/2022 PRE VISIT Gastroenterology Landon [place], *-*INCOMIN G RECORDS*-* MD Luis Fernando [address] [place] [phone] (Wo rk) 01/21/2022 Office Visit Gastroenterology Juanis Levi [address] [place] [address] Luis Fernando Miles MD [address] [place] [phone] documented as of this encounter Visit Diagnoses Diagnosis Opiate dependence (H) Opioid type dependence, unspecified documented in this encounter Care Teams Occupational Therapist Home Based Relationship Specialty Start Date End Date Edgar Alfredo MD PCP - General Family Practice 04/13/12 08/11/14 [address] [facility] 700 [place] [address] documented as of this encounter
--- OUTSIDE RECORDS SUMMARY | 2021-12-14 16:30 | XMS_ITS | Encounter Summary ---
:1980 Author Organization [place] Address [address] [facility] [place] [address] Care Team Providers Name Role Phone Edgar Alfredo MD Primary Care Provider Reason for Visit Reason Comments Recheck Medication Encounter Details Date Type Department Care Team Description 01/18/2014 Office Visit [facility] Edgar Alfredo de pendence (H) Clinic Ashly Gauthier MD [address] [place] [phone] Social History Tobacco Use Types Packs/Day Years Used Date Smoking Tobacco: Every Day Cigarettes 0.1 10 Smokeless Tobacco: Never Comments: 5 cigarettes a day Alcohol Use Standard Drinks/Week Comments No 0 (1 standard drink = 0.6 oz pure alcoho l) Sex Assigned at Date Recorded Female 01/14/2020 10:57 AM MILK RUNNER documented as of this encounter Last Filed Vital Signs Vital Sign Reading Time Taken Comments Blood Pressure 117/82 01/18/2014 10:56 AM MILK RUNNER Pulse 90 01/18/2014 10:56 AM MILK RUNNER Temperature - - Respiratory Rate - - [...] relapse, and establishing a solid recovery program. RUNNER documented in this encounter Nursing Notes Suyapa [...] cuff size: large Suyapa Rodriguez MLT, CMA RUNNER documented in this encounter Plan of Treatment Upcoming Encounters Date Type Specialty Care Team Description 12/20/2021 Office Visit Wound Care Luis Camara DPM 909 [place] [address] (Wo rk) 01/21/2022 PRE VISIT Gastroenterology Landon [place], *-*HEATHER Barriga RECORDS*-* MD Luis Fernando [address] [address] (Wo rk) 01/21/2022 Office Visit Gastroenterology Juanis Levi [address] [place] [phone] Luis Fernando Miles MD [address] [facility] [address] [place], [place] [address] documented as of this encounter Procedures Procedure Name Priority Date/Time Associated Comments Diagnosis BUPRENORPHINE QUAL Routine 01/18/2014 10:48 Opiate dependence Results for this URINE AM MILK RUNNER (H) procedure are i n the results section. DRUG ABUSE SCREEN (NL, Routine 01/18/2014 10:48 Opiate depende nce Results for this RW) AM MILK RUNNER (H) procedure are i n the results section. documented in this encounter Results Buprenorphine Qual Urine (01/18/2014 10:48 AM MILK RUNNER) Patholo gist Method Time Signature Buprenorphine Positive [facility] LAB Qual Urine Specimen Anatomical Collection Method Collection Time Receive d Time (Source) Location / / Volume Laterality Urine specimen 01/18/2014 10:48 4 (specimen) AM MILK RUNNER 10:53 AM MILK RUNNER Edgar Alfredo MD LAB - URINE ORDERABLES Performing Organization Address City/State/[place] [address] [facility] Building [address] [facility] [address] [facility] (ABNORMAL) Drug abuse screen (NL, RW) (01/18/2014 10:48 AM MILK RUNNER) Component Value Ref Test Analysis Performed Pathologis [...] Urine specimen 01/18/2014 10:48 4 (specimen) AM MILK RUNNER 10:53 AM MILK RUNNER Edgar Alfredo MD LAB - URINE ORDERABLES Performing Organization Address City/State/[facility] [place] [address] [facility] Building [address] [facility] documented in this encounter Visit Diagnoses Diagnosis Opiate dependence (H) Opioid type dependence, unspecified documented in this encounter Care Teams Lace Burn Out Tender Relationship Specialty Start Date End Date Edgar Alfredo MD PCP - General Family Practice 04/13/12 08/11/[address] [place] [address] documented as of this encounter
--- OUTSIDE RECORDS SUMMARY | 2021-12-14 16:30 | XMS_ITS | Encounter Summary ---
:1980 Author Organization [place] Address [address] [facility] [place] [address] Care Team Providers Name Role Phone Edgar Alfredo MD Primary Care Provider Reason for Visit Reason Onset Date Comments Recheck Medication Erroneous encounter-disregard 06/07/2013 Encounter Details Date Type Department Care Team Description 06/07/2013 Office Visit [facility] Edgar Alfredo ERRONEOUS Clinic Ashly Gauthier MD ENCOUNTER--DISREGARD [address] [place] (Primary Dx) [address] [place] [phone] Social History Tobacco Use Types Packs/Day Years Used Date Smoking Tobacco: Every Day Cigarettes 0.1 10 Smokeless Tobacco: Never Comments: 5 cigarettes a day Alcohol Use Standard Drinks/Week Comments No 0 (1 standard drink = 0.6 oz pure alcoho l) Sex Assigned at Date Recorded Female 01/14/2020 10:57 AM 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 Please disregard. documented in this encounter Plan of Treatment Upcoming Encounters Date Type Specialty Care Team Description 12/20/2021 Office Visit Wound Care Luis Camara, [place] [address] [place], [place] [phone] (Wo rk) 01/21/2022 PRE VISIT Gastroenterology Landon [place], *-*INCOMIN G RECORDS*-* MD Luis Fernando [address] [address] (Wo rk) 01/21/2022 Office Visit Gastroenterology Juanis Levi [address] [place] [address] Luis Fernando Miles MD [address] [phone] documented as of this encounter Visit Diagnoses Diagnosis ERRONEOUS ENCOUNTER--DISREGARD - Primary documented in this encounter Care Teams Software Development Analyst Relationship Specialty Start Date End Date Edgar Alfredo MD PCP - General Family Practice 04/13/12 08/11/[address] [place] [phone] documented as of this encounter
--- OUTSIDE RECORDS SUMMARY | 2021-12-14 16:30 | XMS_ITS | Encounter Summary ---
:1980 Author Organization [place] Address [address] [place] [address] Care Team Providers Name Role Phone Edgar Alfredo MD Primary Care Provider Reason for Visit Reason Onset Date Comments Panel Management 06/21/2013 [email or web address] Encounter Details Date Type Department Care Team Description 06/21/2013 [facility] Jax Larsen Panel Management Clinic Ashly Craver MD (phq9) [address] Counts include [facility] beds at the [facility] [address] [address] [place] [phone] (Wo rk) Social History Tobacco Use Types Packs/Day Years Used Date Smoking Tobacco: Every Day Cigarettes 0.1 10 Smokeless Tobacco: Never Comments: 5 cigarettes a day Alcohol Use Standard Drinks/Week Comments No 0 (1 standard drink = 0.6 oz pure alcoho l) Sex Assigned at Date Recorded Female 01/14/2020 10:57 AM EXECUTIVE 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 PRESIDENT BUSINESS 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 documented as of this encounter Plan of Treatment Upcoming Encounters Date Type Specialty Care Team Description 12/20/2021 Office Visit Wound Care Luis Camara DPM [address] [place], [place] [address] (Wo rk) 01/21/2022 PRE VISIT Gastroenterology Landon [place], *-*HEATHER Barriga RECORDS*-* MD Luis Fernando [address] [place] [address] [address] [place], [place] [address] (Wo rk) 01/21/2022 Office Visit Gastroenterology Juanis Levi [address] [place] [phone] Luis Fernando Miles MD 6 [facility] 2[address] [place], [place] [address] documented as of this encounter Visit Diagnoses Not on filedocumented in this encounter Care Teams Director Of Student Financial Services Relationship Specialty Start Date End Date Edgar Alfredo MD PCP - General Family Practice 04/13/12 08/11/14 [address] [facility] 700 [place] [phone] documented as of this encounter
--- OUTSIDE RECORDS SUMMARY | 2021-12-14 16:30 | XMS_ITS | Encounter Summary ---
:1980 Author Organization [place] Address [address] [facility] [place] [address] Care Team Providers Name Role Phone Edgar Alfredo MD Primary Care Provider Reason for Visit Reason Onset Date Comments Medication Request 07/30/2013 suboxone Encounter Details Date Type Department Care Team Description 07/30/2013 Telephone [facility] Edgar Alfredo, [facility] ication Request Clinic Ashly VÁSQUEZ (suboxone) [address] [place] [place] [phone] (Wo rk) Social History Tobacco Use Types Packs/Day Years Used Date Smoking Tobacco: Every Day Cigarettes 0.1 10 Smokeless Tobacco: Never Comments: 5 cigarettes a day Alcohol Use Standard Drinks/Week Comments No 0 (1 standard drink = 0.6 oz pure alcoho l) Sex Assigned at Date Recorded Female 01/14/2020 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 She can be reached at [phone]. Suyapa Rodriguez CMA, CHEMISTRY SPECIALIST documented in this encounter Plan of Treatment Upcoming Encounters Date Type Specialty Care Team Description 12/20/2021 Office Visit Wound Care [facility] Luis Lex, DPM [address] [place] [address] (Wo rk) 01/21/2022 PRE VISIT Gastroenterology Landon [place], *-*INCOMIN G RECORDS*-* MD Luis Fernando 6 [facility] 2[address] [place], [place] [address] (Wo rk) 01/21/2022 Office Visit Gastroenterology Juanis Levi [address] [place] [phone] Luis Fernando Miles MD 6 [facility] [address] [place] [address] documented as of this encounter Visit Diagnoses Not on filedocumented in this encounter Care Teams Customer Success Manager Relationship Specialty Start Date End Date Edgar Alfredo MD PCP - General Family Practice 04/13/12 08/11/14 [address] [facility] 700 [place] [address] documented as of this encounter
--- OUTSIDE RECORDS SUMMARY | 2021-12-14 16:30 | XMS_ITS | Encounter Summary ---
:1980 Author Organization [place] Address [address] [facility] [place] [address] Care Team Providers Name Role Phone Edgar Alfredo MD Primary Care Provider Reason for Visit Reason Onset Date Comments Pt. Information/instruction 07/27/2013 Schedule denisa ointment Encounter Details Date Type Department Care Team Description 07/27/2013 Telephone [facility] Edgar Alfredo, Pt. Clinic Ashly VÁSQUEZ Information/instruction [address] [place] (Schedule appointment ) [address] [place] [phone] (Wo rk) Social History Tobacco Use Types Packs/Day Years Used Date Smoking Tobacco: Every Day Cigarettes 0.1 10 Smokeless Tobacco: Never Comments: 5 cigarettes a day Alcohol Use Standard Drinks/Week Comments No 0 (1 standard drink = 0.6 oz pure alcoho l) Sex Assigned at Date Recorded Female 01/14/2020 10:57 AM INFORMATION CLERK [employer] documented as of this encounter Miscellaneous Notes Telephone Encounter - Antonella Guillen - 07/28/2013 7:11 AM CDT Patient called to schedule an appointment, please call to schedule. documented in this encounter Plan of Treatment Upcoming Encounters Date Type Specialty Care Team Description 12/20/2021 Office Visit Wound Care Luis Camara, [place] [address] [place], [place] [phone] (Wo rk) 01/21/2022 PRE VISIT Gastroenterology Landon [place], *-*INCOMIN G RECORDS*-* MD Luis Fernando 516 [facility] 2[address] [place], [place] [phone] (Wo rk) 01/21/2022 Office Visit Gastroenterology Juanis Levi [address] [place] [address] Luis Fernando Miles MD 516 [facility] [address] [place], [place] [address] documented as of this encounter Visit Diagnoses Not on filedocumented in this encounter Care Teams Getter Welder Relationship Specialty Start Date End Date Edgar Alfredo MD PCP - General Family Practice 04/13/12 08/11/14 [address] [facility] 700 [place] [address] documented as of this encounter
--- OUTSIDE RECORDS SUMMARY | 2021-12-14 16:30 | XMS_ITS | Encounter Summary ---
:1980 Author Organization [place] Address [address] [facility] [place] [place] [address] Care Team Providers Name Role Phone Edgar Alfredo MD Primary Care Provider Reason for Visit Reason Onset Date Comments Call To Schedule Appointment 08/18/2013 Encounter Details Date Type Department Care Team Description 08/18/2013 Telephone [facility] Edgar Alfredo Cal l To Schedule Clinic Ashly VÁSQUEZ Appointment [address] [place] [address] [place] [phone] (Wo rk) Social History Tobacco Use Types Packs/Day Years Used Date Smoking Tobacco: Every Day Cigarettes 0.1 10 Smokeless Tobacco: Never Comments: 5 cigarettes a day Alcohol Use Standard Drinks/Week Comments No 0 (1 standard drink = 0.6 oz pure alcoho l) Sex Assigned at Date Recorded Female 01/14/2020 10:57 AM EXERCISE PHYSIOLOGIST CERTIFIED documented as of this encounter Miscellaneous Notes [...] Visit Wound Care Luis Camara, [place] [address] [place], [place] [phone] (Wo rk) 01/21/2022 PRE VISIT Gastroenterology Landon Warren, *-*INCOMIN G RECORDS*-* MD Luis Fernando [address] [place] [address] (Wo rk) 01/21/2022 Office Visit Gastroenterology Juanis Levi [address]50 [place] [phone] Luis Fernando Miles MD [address] [place] [phone] documented as of this encounter Visit Diagnoses Not on filedocumented in this encounter Care Teams Braider Tender Relationship Specialty Start Date End Date Edgar Alfredo MD PCP - General Family Practice 04/13/12 08/11/14 [address] [facility] 700 [place] [phone] documented as of this encounter
--- OUTSIDE RECORDS SUMMARY | 2021-12-14 16:30 | XMS_ITS | Encounter Summary ---
:1980 Author Organization [place] Address [address] [facility] [place] [address] Care Team Providers Name Role Phone Edgar Alfredo MD Primary Care Provider Reason for Visit Reason Onset Date Comments Refill Request 09/07/2013 Please refax Subutex script Encounter Details Date Type Department Care Team Description 09/07/2013 Telephone [facility] Edgar Alfredo, Ref ill Request (Please Clinic [place] refax Subutex script) [address] [place] [phone] (Wo rk) Social History Tobacco Use Types Packs/Day Years Used Date Smoking Tobacco: Every Day Cigarettes 0.1 10 Smokeless Tobacco: Never Comments: 5 cigarettes a day Alcohol Use Standard Drinks/Week Comments No 0 (1 standard drink = 0.6 oz pure alcoho l) Sex Assigned at Date Recorded Female 01/14/2020 10:57 AM YAM CURER documented as of this encounter Miscellaneous Notes [...] Visit Wound Care Luis Camara DPM [address] [place], [place] [phone] (Wo rk) 01/21/2022 PRE VISIT Gastroenterology Landon Warren, *-*INCOMIN G RECORDS*-* MD Luis Fernando [address] [place] [address] (Wo rk) 01/21/2022 Office Visit Gastroenterology Juanis Levi [address] [place] [phone] Luis Fernando Miles MD [address] [place] [address] documented as of this encounter Visit Diagnoses Not on filedocumented in this encounter Care Teams Information Technology Data Analyst Relationship Specialty Start Date End Date Edgar Alfredo MD PCP - General Family Practice 04/13/12 08/11/[address] [place] [address] 700 [place] [phone] documented as of this encounter
--- OUTSIDE RECORDS SUMMARY | 2021-12-14 16:30 | XMS_ITS | Encounter Summary ---
:1980 Author Organization [place] Address [address] [facility] [place] [address] Care Team Providers Name Role Phone Edgar Alfredo MD Primary Care Provider Reason for Visit Reason Comments Recheck Medication Encounter Details Date Type Department Care Team Description 09/30/2013 Office Visit [facility] Edgar Alfredo de pendence (H) Clinic Ashly Gauthier MD [address] [place] [phone] Social History Tobacco Use Types Packs/Day Years Used Date Smoking Tobacco: Every Day Cigarettes 0.1 10 Smokeless Tobacco: Never Comments: 5 cigarettes a day Alcohol Use Standard Drinks/Week Comments No 0 (1 standard drink = 0.6 oz pure alcoho l) Sex Assigned at Date Recorded Female 01/14/2020 10:57 AM MOUNTER 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 WIND INSTRUMENTS documented as of this encounter Last Filed [...] Visit Wound Care Luis Camara DPM 909 [place] [address] (Wo rk) 01/21/2022 PRE VISIT Gastroenterology Landon Warren, *-*HEATHER Barriga RECORDS*-* MD Luis Fernando [address] [address] (Wo rk) 01/21/2022 Office Visit Gastroenterology Juanis Levi [address]50 [place] [phone] Luis Fernando Miles MD [address] [facility] [address] [place], [place] [address] documented as of this encounter Procedures Procedure [...] Organization Address City/State/[place] [address] [facility] Building [address] [place] [address] [address] [facility] LAB Drug abuse [...] Organization Address City/State/[place] [address] [facility] [address] [facility] documented in this encounter Visit Diagnoses Diagnosis Opiate dependence (H) Opioid type dependence, unspecified documented in this encounter Care Teams Accordion Tuner Relationship Specialty Start Date End Date Edgar Alfredo MD PCP - General Family Practice 04/13/12 08/11/[address] [place] [address] [place] [address] documented as of this encounter
--- OUTSIDE RECORDS SUMMARY | 2021-12-14 16:30 | XMS_ITS | Encounter Summary ---
:1980 Author Organization [place] Address [address] [facility] [place] [address] Care Team Providers Name Role Phone Edgar Alfredo MD Primary Care Provider Reason for Visit Reason Comments Recheck Medication Encounter Details Date Type Department Care Team Description 03/15/2014 Office Visit [facility] Edgar Alfredo de pendence (H) Clinic Ashly Gauthier MD [address] [place] [phone] Social History Tobacco Use Types Packs/Day Years Used Date Smoking Tobacco: Every Day Cigarettes 0.1 10 Smokeless Tobacco: Never Comments: 5 cigarettes a day Alcohol Use Standard Drinks/Week Comments No 0 (1 standard drink = 0.6 oz pure alcoho l) Sex Assigned at Date Recorded Female 01/14/2020 10:57 AM CODING QUALITY COORDINATOR documented as of this encounter Last Filed Vital Signs Vital Sign Reading Time Taken Comments Blood Pressure 110/63 03/15/2014 11:27 AM CODING QUALITY COORDINATOR Pulse 94 03/15/2014 11:27 AM CODING QUALITY COORDINATOR Temperature - - Respiratory Rate - - [...] relapse, and establishing a solid recovery program. NG QUALITY COORDINATOR documented in this encounter Nursing Notes Suyapa [...] cuff size: large Suyapa Rodriguez MLT, CMA NG QUALITY COORDINATOR documented in this encounter Plan of Treatment Upcoming Encounters Date Type Specialty Care Team Description 12/20/2021 Office Visit Wound Care Luis Camara DPM 909 [place] [address] (Wo rk) 01/21/2022 PRE VISIT Gastroenterology Landon Warren, *-*HEATHER RECORDS*-* MD Luis Fernando [address] [place] [phone] (Wo rk) 01/21/2022 Office Visit Gastroenterology Juanis Levi 2450 [place] [phone] Luis Fernando Miles MD 516 [facility] [address] [place], [place] [address] documented as of this encounter Procedures Procedure Name Priority Date/Time Associated Comments Diagnosis BUPRENORPHINE QUAL Routine 03/15/2014 11:17 Opiate dependence Results for this URINE AM CODING QUALITY COORDINATOR (H) procedure are i n the results section. DRUG ABUSE SCREEN (NL, Routine 03/15/2014 11:17 Opiate depende nce Results for this RW) AM CODING QUALITY COORDINATOR (H) procedure are i n the results section. documented in this encounter Results Buprenorphine Qual Urine (03/15/2014 11:17 AM CODING QUALITY COORDINATOR) Patholo gist Method Time Signature Buprenorphine Positive [facility] LAB Qual Urine Specimen Anatomical Collection Method Collection Time Receive d Time (Source) Location / / Volume Laterality Urine specimen 03/15/2014 11:17 5 (specimen) AM CODING QUALITY COORDINATOR 11:22 AM CODING QUALITY COORDINATOR Edgar Alfredo MD LAB - URINE ORDERABLES Performing Organization Address City/State/[place] [address] [facility] Building [address] [facility] Drug abuse screen (NL, RW) (03/15/2014 11:17 AM CODING QUALITY COORDINATOR) Component Value Ref Test Analysis Performed [...] Urine specimen 03/15/2014 11:17 5 (specimen) AM CODING QUALITY COORDINATOR 11:22 AM CODING QUALITY COORDINATOR Edgar Alfredo MD LAB - URINE ORDERABLES Performing Organization Address City/State/[place] [address] [facility] Building [address] [facility] documented in this encounter Visit Diagnoses Diagnosis Opiate dependence (H) Opioid type dependence, unspecified documented in this encounter Care Teams Trend Investigator Relationship Specialty Start Date End Date Edgar Alfredo MD PCP - General Family Practice 04/13/12 08/11/[address] [place] [address] [place] [address] documented as of this encounter
--- OUTSIDE RECORDS SUMMARY | 2021-12-14 16:30 | XMS_ITS | Encounter Summary ---
:1980 Author Organization [place] Address [address] [place] [address] Care Team Providers Name Role Phone Edgar Alfredo MD Primary Care Provider Reason for Visit Reason Comments Recheck Medication Encounter Details Date Type Department Care Team Description 06/08/2013 Office Visit [facility] Edgar Alfredo de pendence (H) Clinic Ashly Gauthier MD [address] [place] [address] [place] [phone] Social History Tobacco Use Types Packs/Day Years Used Date Smoking Tobacco: Every Day Cigarettes 0.1 10 Smokeless Tobacco: Never Comments: 5 cigarettes a day Alcohol Use Standard Drinks/Week Comments No 0 (1 standard drink = 0.6 oz pure alcoho l) Sex Assigned at Date Recorded Female 01/14/2020 10:57 AM LASTING MACHINE OPERATOR BED documented as of this encounter Last Filed [...] using cuff size: large Suyapa Rodriguez CMA, INSPECTOR AND ADJUSTER GOLF [employer]UB HEAD documented in this encounter Plan of Treatment Upcoming Encounters Date Type Specialty Care Team Description 12/20/2021 Office Visit Wound Care Luis Camara DPM [address] [place] [address] (Wo rk) 01/21/2022 PRE VISIT Gastroenterology Landon Warren, *-*HEATHER Barriga RECORDS*-* MD Luis Fernando [address] [address] (Wo rk) 01/21/2022 Office Visit Gastroenterology Juanis Levi [address]50 [place] [phone] Luis Fernando Miles MD 516 [facility] [address] [place], [place] [address] documented as of this encounter Procedures Procedure [...] Buprenorphine Qual Urine (06/08/2013 10:49 AM CDT) [facility] gist Method Time Signature Buprenorphine Negative [facility] LAB Qual Urine Specimen Anatomical Collection Method Collection Time Receive d Time (Source) Location / / Volume Laterality Urine specimen 06/08/2013 10:49 4 (specimen) AM CDT 10:54 AM CDT Edgar Alfredo MD LAB - URINE ORDERABLES Performing Organization Address City/State/[place] [address] [facility] Building [address] [place] [address] [address] LAB Drug abuse screen (NL, RW) (06/08/2013 10:49 AM CDT) [facility] gist Method Time Signature Methamphetamine [...] Organization Address City/State/[place] [address] [facility] Building [address] [facility] documented in this encounter Visit Diagnoses Diagnosis Opiate dependence (H) Opioid type dependence, unspecified documented in this encounter Care Teams Sample Display Preparer Relationship Specialty Start Date End Date Edgar Alfredo MD PCP - General Family Practice 04/13/12 08/11/[address] [place] [place] [phone] documented as of this encounter
--- OUTSIDE RECORDS SUMMARY | 2021-12-14 16:30 | XMS_ITS | Encounter Summary ---
:1980 Author Organization [place] Address [facility] [place] [address] Care Team Providers Name Role Phone Edgar Alfredo MD Primary Care Provider System, Provider Not In Primary Care Provider Unavailable [facility], [facility] Primary Care Provide r Luis Fernando Magana Primary Care Provider [facility] Primary Care Provide r Tatyana Haas FLIGHT SERVICE AGENT MANAGER OF DEVELOPMENT Unavailable [phone] Stephani Pina FLIGHT SERVICE AGENT MANAGER OF DEVELOPMENT Unavailable [phone] Tatyana Haas FLIGHT SERVICE AGENT MANAGER OF DEVELOPMENT Unavailable [phone] Stephani iPna FLIGHT SERVICE AGENT MANAGER OF DEVELOPMENT Unavailable [phone] Juanis Levi Primary Care Provider Elsa Yeh RN Unavailable Unavailable Rogelio Treadwell MD Unavailable [phone] Luis CamaraM Unavailable [phone] Camryn Christina MD Unavailable Sintia Lange PA-C Unavailable Luis Fernando Miles MD Unavailable [phone] Reason for Visit Reason Onset Date Comments Call To Schedule Appointment 08/26/2013 Encounter Details Date Type Department Care Team Description 08/26/2013 Telephone [facility] Edgar Mcclain Cal l To Schedule Clinic Ashly VÁSQUEZ Appointment [address] [place] [address] [place] [phone] (Wo rk) Social History Tobacco Use Types Packs/Day Years Used Date Smoking Tobacco: Every Day Cigarettes 0.1 10 Smokeless Tobacco: Never Comments: 5 cigarettes a day Alcohol Use Standard Drinks/Week Comments No 0 (1 standard drink = 0.6 oz pure alcoho l) Sex Assigned at Date Recorded Female 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 Alfredo. Please call patient to schedule. Thank you. documented in this encounter Plan of Treatment Upcoming Encounters Date Type Specialty Care Team Description 12/20/2021 Office Visit Wound Care Luis Camara, [place] [address] [place] [address] (Reinaldo rk) 01/21/2022 PRE VISIT Gastroenterology Landon Warren, *-*INCOMIN G RECORDS*-* MD Luis Fernando [address] [place] [phone] (Wo rk) 01/21/2022 Office Visit Gastroenterology Juanis Levi [address]50 [place] [phone] Luis Fernando Miles MD [address] [address] documented as of this encounter Visit Diagnoses Not on filedocumented in this encounter Additional Health Concerns Infection Onset Date Last Indicated Resolved Time MRSAComment: Added from external infection. 11/07/201406/18 documented as of this encounter Care Teams Hydraulic Technician Relationship Specialty Start Date End Date Edgar Alfredo, PCP - General Family Practice 04/13/1208/[address] [place] [phone] System, Provider Not PCP - General Clinic 08/12/[address] [facility], [facility] PCP - General 07/14/[address] [phone] Fernando Magana PCP - General Family Practice 12/07/16 01/19/[address] [address] [facility], [facility] PCP - General 01/20/[address] [address] Juanis Levi PCP - General Addiction Medicine 06/29/[address] [place] [phone] Tatyana Haas, Assigned PCP 08/02/18 01/29/20 FLIGHT SERVICE AGENT MANAGER OF DEVELOPMENT [facility] [address] [facility] [address] [place] [address] Stephani Pina, Assigned PCP 01/30/20 12/30/20 FLIGHT SERVICE AGENT MANAGER OF DEVELOPMENT [address] [place] [address] 700 [place] [address] Tatyana Haas, Assigned PCP 12/31/20 02/24/21 FLIGHT SERVICE AGENT MANAGER OF DEVELOPMENT [facility] [address] [place] [address] Stephani Pina, Assigned PCP 02/25/21 FLIGHT SERVICE AGENT MANAGER OF DEVELOPMENT [address] [facility] [address] [place] [address] Elsa Yeh, Registered Nurse Infectious Diseases 07/25/21 Rgoelio Wilson Assigned Musculoskeletal 08/04/21 MD August Provider [address] [place], [place] [phone] Luis Camara MD Podiatry 08/16/21 CALVIN Burnett [address] [place], [place] [address] Camryn Christina Assigned Surgical 09/01/21 09/07/21 MD Lexie Provider 420 [facility] 195 [place], [place] [address] Sintia Lange PA-C Assigned Surgical 09/08/[address] [place] [address] [address] Provider FLOOR [place], [place] [phone] Landon Warren MD Gastroenterology 11/21/21 MD Luis Fernando [address] [facility] [address] [place], [place] [phone] documented as of this encounter
--- OUTSIDE RECORDS SUMMARY | 2021-12-14 16:30 | XMS_ITS | Encounter Summary ---
:1980 Author Organization [place] Address [address] [facility] [place] [address] Care Team Providers Name Role Phone Edgar Alfredo MD Primary Care Provider Reason for Visit Reason Comments Recheck Medication Encounter Details Date Type Department Care Team Description 11/09/2013 Office Visit [facility] Edgar Alfredo de pendence (H) Clinic Ashly Gauthier MD [address] [place] [address] [place] [phone] Social History Tobacco Use Types Packs/Day Years Used Date Smoking Tobacco: Every Day Cigarettes 0.1 10 Smokeless Tobacco: Never Comments: 5 cigarettes a day Alcohol Use Standard Drinks/Week Comments No 0 (1 standard drink = 0.6 oz pure alcoho l) Sex Assigned at Date Recorded Female 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/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 documented as of this encounter Last Filed [...] Office Visit Wound Care Luis Camara, [place] [address] [place] [phone] (Wo rk) 01/21/2022 PRE VISIT Gastroenterology Landon Warren, *-*WANDAIN G RECORDS*-* MD Luis Fernando 516 [facility] 2[address] [place], [place] [address] (Wo rk) 01/21/2022 Office Visit Gastroenterology Juanis Levi [address] [place] [address] Luis Fernando Miles MD 6 [facility] [address] [place] [address] documented as of this encounter [...] Organization Address City/State/[place] [address] [facility] Building [address] [...] Organization Address City/State/[place] [address] [facility] Building [address] [facility] documented in this encounter Visit Diagnoses Diagnosis Opiate dependence (H) Opioid type dependence, unspecified documented in this encounter Care Teams Dumper Bailer Operator Relationship Specialty Start Date End Date Edgar Alfredo MD PCP - General Family Practice 04/13/12 08/11/[address] [place] [address] documented as of this encounter
--- OUTSIDE RECORDS SUMMARY | 2021-12-14 16:30 | XMS_ITS | Encounter Summary ---
:1980 Author Organization [place] Address [address] [place] [address] Care Team Providers Name Role Phone Edgar Alfredo MD Primary Care Provider Reason for Visit Reason Comments Recheck Medication Encounter Details Date Type Department Care Team Description 12/23/2013 Office Visit [facility] Edgar Alfredo de pendence (H) Clinic Ashly Gauthier MD [address] [place] [address] [place] [address] Social History Tobacco Use Types Packs/Day Years Used Date Smoking Tobacco: Every Day Cigarettes 0.1 10 Smokeless Tobacco: Never Comments: 5 cigarettes a day Alcohol Use Standard Drinks/Week Comments No 0 (1 standard drink = 0.6 oz pure alcoho l) Sex Assigned at Date Recorded Female 01/14/2020 10:57 AM HOME HEALTH CLINICIAN documented as of this encounter Last Filed Vital Signs Vital Sign Reading Time Taken Comments Blood Pressure 133/84 12/23/2013 4:56 PM HOME HEALTH CLINICIAN Pulse 99 12/23/2013 4:56 PM HOME HEALTH CLINICIAN Temperature - - Respiratory Rate - - [...] relapse, and establishing a solid recovery program. HEALTH CLINICIAN documented in this encounter Nursing Notes Suyapa [...] cuff size: large Suyapa Rodriguez MLT, CMA HEALTH CLINICIAN documented in this encounter Plan of Treatment Upcoming Encounters Date Type Specialty Care Team Description 12/20/2021 Office Visit Wound Care Luis Camara DPM 909 [place] [address] (Wo rk) 01/21/2022 PRE VISIT Gastroenterology Landon Warren, *-*HEATHER G RECORDS*-* MD Luis Fernando [address] [place], [place] [address]B [address] [place] [address] (Wo rk) 01/21/2022 Office Visit Gastroenterology Juanis Levi [address]50 [place] [phone] Luis Fernando Miles MD 6 [facility] 2A [place], [place] [address] documented as of this encounter Procedures Procedure Name Priority Date/Time Associated Comments Diagnosis BUPRENORPHINE QUAL Routine 12/23/2013 4:56 PM Opiate dependenc e Results for this URINE HOME HEALTH CLINICIAN (H) procedure are i n the results section. DRUG ABUSE SCREEN (NL, Routine 12/23/2013 4:56 PM Opiate depen dence Results for this RW) HOME HEALTH CLINICIAN (H) procedure are i n the results section. documented in this encounter Results Buprenorphine Qual Urine (12/23/2013 4:56 PM HOME HEALTH CLINICIAN) Patholo gist Method Time Signature Buprenorphine Negative [facility] LAB Qual Urine Specimen Anatomical Collection Method Collection Time Receive d Time (Source) Location / / Volume Laterality Urine specimen 12/23/2013 4:56 PM 014 5:01 (specimen) HOME HEALTH CLINICIAN PM HOME HEALTH CLINICIAN Edgar Alfredo MD LAB - URINE ORDERABLES Performing Organization Address City/State/[place] [address] [facility] Building [address] [facility] [address] [facility] LAB Drug abuse screen (NL, RW) (12/23/2013 4:56 PM HOME HEALTH CLINICIAN) Component Value Ref Test Analysis Performed Pathologis [...] specimen 12/23/2013 4:56 PM 014 5:01 (specimen) HOME HEALTH CLINICIAN PM HOME HEALTH CLINICIAN Edgar Alfredo MD LAB - URINE ORDERABLES Performing Organization Address City/State/[place] [address] [facility] [address] RJ LAB documented in this encounter Visit Diagnoses Diagnosis Opiate dependence (H) Opioid type dependence, unspecified documented in this encounter Care Teams Transportation Project Manager Relationship Specialty Start Date End Date Edgar Alfredo MD PCP - General Family Practice 04/13/12 08/11/[address] [place] [address] [place] [address] documented as of this encounter
--- OUTSIDE RECORDS SUMMARY | 2021-12-14 16:30 | XMS_ITS | Encounter Summary ---
:1980 Author Organization [place] Address [address] [facility] [place] [address] Care Team Providers Name Role Phone Edgar Alfredo MD Primary Care Provider Reason for Visit Reason Onset Date Comments Medication Request 05/31/2013 PA Encounter Details Date Type Department Care Team Description 05/31/2013 Telephone [facility] Edgar Alfredo, [facility] ication Request (PA) Clinic Ashly VÁSQUEZ [address] [place] [address] [place] [phone] (Wo rk) Social History Tobacco Use Types Packs/Day Years Used Date Smoking Tobacco: Every Day Cigarettes 0.1 10 Smokeless Tobacco: Never Comments: 5 cigarettes a day Alcohol Use Standard Drinks/Week Comments No 0 (1 standard drink = 0.6 oz pure alcoho l) Sex Assigned at Date Recorded Female 01/14/2020 10:57 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 Pharmacy # [phone] Suyapa Rodriguez CMA, WREATH MAKER documented in this encounter Plan of Treatment Upcoming Encounters Date Type Specialty Care Team Description 12/20/2021 Office Visit Wound Care Luis Camara DPM [address]09 [place] [address] (Wo rk) 01/21/2022 PRE VISIT Gastroenterology Landon Warren, *-*INCOMIN G RECORDS*-* MD Luis Fernando [address] [place] [phone] (Wo rk) 01/21/2022 Office Visit Gastroenterology Juanis Levi 2450 [place] [phone] Luis Fernando Miles MD [address] [place] [phone] documented as of this encounter Visit Diagnoses Diagnosis Opiate dependence (H) Opioid type dependence, unspecified documented in this encounter Care Teams Communications Engineer Relationship Specialty Start Date End Date Edgar Alfredo MD PCP - General Family Practice 04/13/12 08/11/[address] [place] [phone] documented as of this encounter
--- OUTSIDE RECORDS SUMMARY | 2021-12-14 16:30 | XMS_ITS | Encounter Summary ---
:1980 Author Organization [place] Address [address] [facility] [place] [address] Care Team Providers Name Role Phone Edgar Alfredo MD Primary Care Provider Reason for Visit Reason Onset Date Comments Recheck Medication Erroneous encounter-disregard 11/11/2013 Encounter Details Date Type Department Care Team Description 11/08/2013 Office Visit [facility] Edgar Alfredo ERRONEOUS Clinic Ashly Gauthier MD ENCOUNTER--DISREGARD [address] [place] (Primary Dx) [address] 700 [place] [phone] Social History Tobacco Use Types Packs/Day Years Used Date Smoking Tobacco: Every Day Cigarettes 0.1 10 Smokeless Tobacco: Never Comments: 5 cigarettes a day Alcohol Use Standard Drinks/Week Comments No 0 (1 standard drink = 0.6 oz pure alcoho l) Sex Assigned at Date Recorded Female 01/14/2020 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 Please disregard. documented in this encounter Plan of Treatment Upcoming Encounters Date Type Specialty Care Team Description 12/20/2021 Office Visit Wound Care Luis Camara, [place] [address] [place], [place] [phone] (Wo rk) 01/21/2022 PRE VISIT Gastroenterology Landon Warren, *-*INCOMIN G RECORDS*-* MD Luis Fernando [address] [address] (Wo rk) 01/21/2022 Office Visit Gastroenterology Juanis Levi 2450 [place] [address] Luis Fernando Miles MD [address] [phone] documented as of this encounter Visit Diagnoses Diagnosis ERRONEOUS ENCOUNTER--DISREGARD - Primary documented in this encounter Care Teams Case Management Specialist Relationship Specialty Start Date End Date Edgar Alfredo MD PCP - General Family Practice 04/13/12 08/11/[address] [place] [phone] documented as of this encounter
--- OUTSIDE RECORDS SUMMARY | 2021-12-14 16:30 | XMS_ITS | Encounter Summary ---
:1980 Author Organization [place] Address [address]50 [facility] [place] [address] Care Team Providers Name Role Phone Edgar Alfredo MD Primary Care Provider Reason for Visit Reason Onset Date Comments Refill Request 07/05/2013 subutex Encounter Details Date Type Department Care Team Description 07/05/2013 Telephone [facility] Edgar Alfredo, Ref ill Request Clinic Ashly VÁSQUEZ (subutex) [address] [place] [address] [place] [phone] (Wo rk) Social History Tobacco Use Types Packs/Day Years Used Date Smoking Tobacco: Every Day Cigarettes 0.1 10 Smokeless Tobacco: Never Comments: 5 cigarettes a day Alcohol Use Standard Drinks/Week Comments No 0 (1 standard drink = 0.6 oz pure alcoho l) Sex Assigned at Date Recorded Female 01/14/2020 10:57 AM SUPERINTENDENT PRODUCTION documented as of this encounter Miscellaneous Notes Telephone Encounter - Edgar Alfredo MD - 07/05/2013 3:42 PM CDT Bridge ordered Telephone Encounter - Suyapa Rodriguez [facility] - 07/05/2013 3:22 PM CDT Patient had appt tomorrow, has to take kids to doctor, rescheduled for Thurs. Ran out of meds today,needs bridge. Suyapa Rodriguez CMA, THRESHING OPERATOR documented in this encounter Plan of Treatment Upcoming Encounters Date Type Specialty Care Team Description 12/20/2021 Office Visit Wound Care Luis Camara, DPM 909 [place] [address] (Wo rk) 01/21/2022 PRE VISIT Gastroenterology Landon Warren, *-*HEATHER G RECORDS*-* MD Luis Fernando [address] [place] [phone] (Wo rk) 01/21/2022 Office Visit Gastroenterology Juanis Levi 2450 [place] [phone] Luis Fernando Miles MD [address] [place] [phone] documented as of this encounter Visit Diagnoses Diagnosis Opiate dependence (H) Opioid type dependence, unspecified documented in this encounter Care Teams Veneer Joiner Relationship Specialty Start Date End Date Edgar Alfredo MD PCP - General Family Practice 04/13/12 08/11/14 [address] [facility] [address] [place] [address] documented as of this encounter
--- OUTSIDE RECORDS SUMMARY | 2021-12-14 16:30 | XMS_ITS | Encounter Summary ---
:1980 Author Organization [place] Address [address] [place] [address] Care Team Providers Name Role Phone Edgar Alfredo MD Primary Care Provider Encounter Details Date Type Department Care Team Description 07/08/2013 Orders Only [facility] Clinic Opi ate dependence (H) [place] [address] [facility] [address] [place], [place] [phone] Social History Tobacco Use Types Packs/Day Years Used Date Smoking Tobacco: Every Day Cigarettes 0.1 10 Smokeless Tobacco: Never Comments: 5 cigarettes a day Alcohol Use Standard Drinks/Week Comments No 0 (1 standard drink = 0.6 oz pure alcoho l) Sex Assigned at Date Recorded Female 01/14/2020 10:57 AM ENGINEERING 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 documented as of this encounter Plan of Treatment Upcoming Encounters Date Type Specialty Care Team Description 12/20/2021 Office Visit Wound Care Luis Camara DPM [address] [place], [place] [phone] (Wo rk) 01/21/2022 PRE VISIT Gastroenterology Landon Warren, *-*HEATHER Barriga RECORDS*-* MD Luis Fernando 516 [facility] [place], [place] [phone] (Wo rk) 01/21/2022 Office Visit Gastroenterology Juanis Levi [address] [place] [address] Luis Fernando Miles MD [address] [place] [address] [address] [place] [address] documented as of this encounter Procedures Procedure [...] - URINE ORDERABLES Performing Organization Address [facility] [place] [address] [facility] Building [address] [place] [address] [address] LAB Drug abuse screen (NL, RW) (07/08/2013 12:56 PM CDT) [facility] Method Time Signature Methamphetamine Negative RJ [...] Address City/[facility]/[place] [address] [facility] Building [address] [facility] LAB documented in this encounter Visit Diagnoses Diagnosis Opiate dependence (H) Opioid type dependence, unspecified documented in this encounter Care Teams Product Marketing Coordinator Relationship Specialty Start Date End Date Edgar Alfredo MD PCP - General Family Practice 04/13/[address] [place] [address] [place] [phone] documented as of this encounter
--- OUTSIDE RECORDS SUMMARY | 2021-12-14 16:30 | XMS_ITS | Encounter Summary ---
:1980 Author Organization [place] Address [address] [place] [address] Care Team Providers Name Role Phone Edgar Alfredo MD Primary Care Provider Reason for Visit Reason Onset Date Comments Refill Request 09/07/2013 Encounter Details Date Type Department Care Team Description 09/06/2013 Refill [facility] Nithya Alfredo MD Refill Request [place] [address] [place] [address] [place], [place] [address] [phone] [place] [address] [phone] Social History Tobacco Use Types Packs/Day Years Used Date Smoking Tobacco: Every Day Cigarettes 0.1 10 Smokeless Tobacco: Never Comments: 5 cigarettes a day Alcohol Use Standard Drinks/Week Comments No 0 (1 standard drink = 0.6 oz pure alcoho l) Sex Assigned at Date Recorded Female 01/14/2020 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 documented as of this encounter Miscellaneous [...] Visit Wound Care Luis Camara, [place] 909 [place] [address] (Wo rk) 01/21/2022 PRE VISIT Gastroenterology Landon Warren, *-*INCOMIN G RECORDS*-* MD Luis Fernando [address] [place] [address] [address] [place], [place] [address] (Wo rk) 01/21/2022 Office Visit Gastroenterology Juanis Levi [address]50 [place] [phone] Luis Fernando Miles MD [address] [place] [phone] documented as of this encounter Visit Diagnoses Not on filedocumented in this encounter Care Teams Tester Food Products Relationship Specialty Start Date End Date Edgar Alfredo MD PCP - General Family Practice 04/13/12 08/11/14 [address] [facility] 700 [place] [address] documented as of this encounter
--- OUTSIDE RECORDS SUMMARY | 2021-12-14 16:30 | XMS_ITS | Encounter Summary ---
:1980 Author Organization [place] Address [address] [facility] [place] [address] Care Team Providers Name Role Phone Edgar Alfredo MD Primary Care Provider Reason for Visit Reason Comments No Show Encounter Details Date Type Department Care Team Description 05/25/2013 Office Visit [facility] TONY StoutS [facility] ROSLYN [place] ENCOUNTER--DISREGARD [address] [place] (Primary Dx) [address] [place], [place] [address] [place] [address] [place], [place] [phone] (Wo rk) Social History Tobacco Use Types Packs/Day Years Used Date Smoking Tobacco: Every Day Cigarettes 0.1 10 Smokeless Tobacco: Never Comments: 5 cigarettes a day Alcohol Use Standard Drinks/Week Comments No 0 (1 standard drink = 0.6 oz pure alcoho l) Sex Assigned at Date Recorded Female 01/14/2020 10:57 AM EQUINE DENTIST documented as of this encounter Progress Notes Tania Trevino CMA - 05/26/2013 10:39 AM CDT NO show documented in this encounter Plan of Treatment Upcoming Encounters Date Type Specialty Care Team Description 12/20/2021 Office Visit Wound Care Luis Camara DPM 909 [place], [place] [phone] (Wo rk) 01/21/2022 PRE VISIT Gastroenterology Landon Warren, *-*WANDAIN G RECORDS*-* MD Luis Fernando 516 [facility] 2A [place], [place] [phone] (Wo rk) 01/21/2022 Office Visit Gastroenterology Juanis Levi [address] [place] [phone] Luis Fernando Miles MD [address] [phone] documented as of this encounter Visit Diagnoses Diagnosis ERRONEOUS ENCOUNTER--DISREGARD - Primary documented in this encounter Care Teams Site Worker Relationship Specialty Start Date End Date Edgar Alfredo MD PCP - General Family Practice 04/13/12 08/11/14 [address] 24[address] [facility] 700 [place] [address] documented as of this encounter
--- OUTSIDE RECORDS SUMMARY | 2021-12-14 16:30 | XMS_ITS | Encounter Summary ---
:1980 Author Organization [place] Address [address] [place] [address] Care Team Providers Name Role Phone Edgar Alfredo MD Primary Care Provider Reason for Visit Reason Onset Date Comments Refill Request 08/26/2013 Encounter Details Date Type Department Care Team Description 08/26/2013 Refill [facility] Nithya Alfredo MD Refill Request [place] [address] [place] [address] [place], [place] [address] [phone] [place] [address] [phone] Social History Tobacco Use Types Packs/Day Years Used Date Smoking Tobacco: Every Day Cigarettes 0.1 10 Smokeless Tobacco: Never Comments: 5 cigarettes a day Alcohol Use Standard Drinks/Week Comments No 0 (1 standard drink = 0.6 oz pure alcoho l) Sex Assigned at Date Recorded Female 01/14/2020 10:57 AM LUMBER PILER OPERATOR documented as of this encounter Miscellaneous Notes Telephone Encounter - Edgar Alfredo MD - 08/26/2013 5:34 PM CDT Should have enough until 09/01/13 6 day bridge ordered Telephone Encounter - Suyapa Rodriguez CMA - 08/26/2013 4:43 PM CDT Patient called, could not get a ride for appt today, rescheduled for 09/07, needs bridge. Suyapa Rodriguez CMA, TENTS ASSEMBLER documented in this encounter Plan of Treatment Upcoming Encounters Date Type Specialty Care Team Description 12/20/2021 Office Visit Wound Care Luis Camara, [place] [address] [place] [address] (Wo rk) 01/21/2022 PRE VISIT Gastroenterology Landon Warren, *-*WANDAIN G RECORDS*-* MD Luis Fernando [address] [place] [phone] (Wo rk) 01/21/2022 Office Visit Gastroenterology Juanis Levi [address]50 [place] [phone] Luis Fernando Miles MD [address] [place] [phone] documented as of this encounter Visit Diagnoses Diagnosis Opiate dependence (H) Opioid type dependence, unspecified documented in this encounter Care Teams Shipping Room Supervisor Relationship Specialty Start Date End Date Edgar Alfredo MD PCP - General Family Practice 04/13/12 08/11/14 606 24[address] [facility] 700 [place] [phone] documented as of this encounter
--- OUTSIDE RECORDS SUMMARY | 2021-12-14 16:30 | XMS_ITS | Encounter Summary ---
:1980 Author Organization [place] Address [address] [facility] [place] [address] Care Team Providers Name Role Phone Edgar Alfredo MD Primary Care Provider Reason for Visit Reason Comments Recheck Medication Encounter Details Date Type Department Care Team Description 09/07/[address] 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 documented as of this encounter Last [...] Visit Wound Care Luis Camara DPM [address]09 [place], [place] [phone] (Reinaldo molina) 01/21/2022 PRE VISIT Gastroenterology Landon Warren, *-*INCOMIN G RECORDS*-* MD Luis Fernando [address] [place] [address] [phone] (Reinaldo molina) 01/21/2022 Office Visit Gastroenterology Juanis Levi [address]50 [place] [phone] Luis Fernando Miles MD [address] [place] [address] [phone] documented as of this encounter Procedures Procedure [...] Address City/State/[place] [address] [facility] Building [...] Address City/State/[place] [address] [facility] Building [address] [facility] LAB documented in this encounter Visit Diagnoses Diagnosis Opiate dependence (H) Opioid type dependence, unspecified documented in this encounter Care Teams Chief Technical Officer Relationship Specialty Start Date End Date Edgar Alfredo MD PCP - General Family Practice 04/13/12 08/11/[address] [place] [address] [place] [address] documented as of this encounter
--- OUTSIDE RECORDS SUMMARY | 2021-12-14 16:31 | XMS_ITS | Encounter Summary ---
:1980 Author Organization [place] Address [facility] [place] [address] Care Team Providers Name Role Phone Edgar Carbone MD Primary Care Provider Reason for Visit Reason Onset Date Comments Medication Request 02/12/2013 Encounter Details Date Type Department Care Team Description 02/12/2013 Telephone [facility] Edgar Carbone Ma rk, Medication Request Ashly VÁSQUEZ [address] [place] [address] [place] [address] [address] [place] [phone] (Wo rk) Social History Tobacco Use Types Packs/Day Years Used Date Smoking Tobacco: Every Day Cigarettes 0.1 10 Smokeless Tobacco: Never Comments: 5 cigarettes a day Alcohol Use Standard Drinks/Week Comments No 0 (1 standard drink = 0.6 oz pure alcoho l) Sex Assigned at Date Recorded Female 01/14/2020 10:57 AM SALES ASSOC documented as of this encounter Miscellaneous Notes Telephone Encounter - Madonna Cody - 02/15/2013 2:56 PM CST Script for subutex has been faxed to the [facility] off of [facility]. S ASSOC Telephone Encounter - Chapis Elizalde - 02/15/2013 12:46 PM CST Will fax to ana grimm until ua /drug screen complete.--GENARO De La Fuente RN S ASSOC Addendum Note - Myles Reese MD - 02/15/2013 12:44 PM SALES ASSOC Addended by: MYLES REESE on: 02/15/2013 12:44 PM Modules accepted: Orders S ASSOC Telephone Encounter - Myles Reese MD - 02/15/2013 12:42 PM SALES ASSOC Ordered - please notify patient . Thanks Myles Reese MD S ASSOC Addendum Note - Chapis Elizalde - 02/15/2013 12:05 PM SALES ASSOC Addended by: CHAPIS ELIZALDE on: 02/15/2013 12:05 PM Modules accepted: Orders S ASSOC Telephone Encounter - Chapis Elizalde - 02/15/2013 12:04 PM CST Pt coming in today for ua drug screen, if insurance calls is medically necessary for ride. Will route to dr reese to get medication filled coming at 200 Chapis Elizalde RN S ASSOC Telephone Encounter - Myles Reese MD - 02/15/2013 9:52 AM SALES ASSOC Read and agree with plan Myles Reese MD S ASSOC Telephone Encounter - Edgar Carbone MD - 02/13/2013 10:50 AM CST Attempted to reach patient ; no answer, mailbox full If she calls in my absence: inquire as to whether she has been sober or using. If using - seek detox. If sober - OK to fill Subutex 8 mg per day until appointment 03/01/13 Advise come in for drug screen S ASSOC Telephone Encounter - Chapis Elizalde - 02/12/2013 4:15 PM CST i do not see that pt has checked in for lab as of this time today--just to let you know Chapis Elizalde RN S ASSOC Telephone Encounter - Chapis Elizalde - 02/12/2013 12:31 PM CST 330 today for send outs. She uses [facility]. She will call for lab apt after she can set up ride for today Chapis Elizalde RN S ASSOC Telephone Encounter - Chapis Elizalde - 02/12/2013 12:26 PM CST Mail box full at this time, attempted to contact pt Chapis Elizalde RN S ASSOC Telephone Encounter - Edgar Carbone MD - 02/12/2013 12:21 PM CST Will refill as soon as she comes in to leave urine for drug screen - should be today S ASSOC Telephone Encounter - Chapis Elizalde - 02/12/2013 [...] for Friday to review. Chapis Elizalde RN S ASSOC Telephone Encounter - RadhaDonnie muñizen - 02/12/2013 11:29 AM CST Patient calling in. Patient needs refill of Subutex Was only given a 1 week refill, but next appointet isnt until 03/01 need refill to cover until linic appointment. Patient is currently out of medication Pharmacy [facility] [place] and [facility] Best number for patient - [phone] Thank you\ Violeta Knight Switchboard Receptionist S ASSOC documented in this encounter Plan of Treatment Upcoming Encounters Date Type Specialty Care Team Description 12/20/2021 Office Visit Wound Care Luis Camara, [place] [address]09 [place] [address] (Wo rk) 01/21/2022 PRE VISIT Gastroenterology Landon Warren, *-*INCOMIN G RECORDS*-* MD Luis Fernando [address] [place] [phone] (Wo rk) 01/21/2022 Office Visit Gastroenterology Juanis Levi 2450 [place] [phone] Luis Fernando Miles MD [address] [place] [phone] documented as of this encounter Visit Diagnoses Diagnosis Opiate dependence (H) - Primary Opioid type dependence, unspecified documented in this encounter Care Teams Case Management Assistant Relationship Specialty Start Date End Date Edgar Carbone MD PCP - General Family Practice 04/13/12 08/11/14 [address] [facility] 700 [place] [phone] documented as of this encounter
--- OUTSIDE RECORDS SUMMARY | 2021-12-14 16:31 | XMS_ITS | Encounter Summary ---
:1980 Author Organization [place] Address 2450 [facility] [place] [address] Care Team Providers Name Role Phone Edgar Alfredo MD Primary Care Provider Encounter Details Date Type Department Care Team Description 11/28/2012 Telephone [facility] Rubi Larsen [place] MD [address] [place] [address] [place] [address] 700 [address] [place], [place] [phone] [place] [phone] Social History Tobacco Use Types Packs/Day Years Used Date Smoking Tobacco: Every Day Cigarettes 0.1 10 Smokeless Tobacco: Never Comments: 5 cigarettes a day Alcohol Use Standard Drinks/Week Comments No 0 (1 standard drink = 0.6 oz pure alcoho l) Sex Assigned at Date Recorded Female 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 2A [place], [place] [address] (Wo rk) 01/21/2022 Office Visit Gastroenterology Juanis Levi 2450 [place] [phone] Luis Fernando Miles MD [address] [facility] 2[address] [place], [place] [address] documented as of this encounter Visit Diagnoses Not on filedocumented in this encounter Care Teams Fast Food Manager Relationship Specialty Start Date End Date Edgar Alfredo MD PCP - General Family Practice 04/13/12 08/11/14 [address] [facility] 700 [place] [phone] documented as of this encounter
--- OUTSIDE RECORDS SUMMARY | 2021-12-14 16:31 | XMS_ITS | Encounter Summary ---
:1980 Author Organization [place] Address [facility] [place] [address] Care Team Providers Name Role Phone Edgar Alfredo MD Primary Care Provider System, Provider Not In Primary Care Provider Unavailable [facility], [facility] Primary Care Provide r Luis Fernando Magana Primary Care Provider [facility] Primary Care Provide r Tatyana Haas TOY ASSEMBLER PR SPECIALIST Unavailable [phone] Stephani Pina TOY ASSEMBLER PR SPECIALIST Unavailable [phone] Tatyana Haas TOY ASSEMBLER PR SPECIALIST Unavailable [phone] Stephani Pina TOY ASSEMBLER PR SPECIALIST Unavailable [phone] Juanis Levi Primary Care Provider Elsa Yeh RN Unavailable Unavailable Rogelio Treadwell MD Unavailable [phone] Luis CamaraM Unavailable [phone] Camryn Christina MD Unavailable Sintia Lange PA-C Unavailable Luis Fernando Miles MD Unavailable [phone] Reason for Visit Reason Onset Date Comments Erroneous encounter-disregard 04/27/2013 Encounter Details Date Type Department Care Team Description 04/27/2013 Telephone [facility]SQUEZ encounter-disregard [address] [place] [address] [place] [address] (Wo rk) Social History Tobacco Use Types Packs/Day Years Used Date Smoking Tobacco: Every Day Cigarettes 0.1 10 Smokeless Tobacco: Never Comments: 5 cigarettes a day Alcohol Use Standard Drinks/Week Comments No 0 (1 standard drink = 0.6 oz pure alcoho l) Sex Assigned at Date Recorded Female 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 documented as of this encounter Plan of Treatment Upcoming Encounters Date Type Specialty Care Team Description 12/20/2021 Office Visit Wound Care Lusi Camara, [place] [address] [place], [place] [address] (Wo rk) 01/21/2022 PRE VISIT Gastroenterology Landon Warren, *-*INCOMIN G RECORDS*-* MD Luis Fernando [address] [place] [address] (Wo rk) 01/21/2022 Office Visit Gastroenterology Juanis Levi 2450 [place] [address] Luis Fernando Miles MD [address] [place] [address] documented as of this encounter Visit Diagnoses Not on filedocumented in this encounter Additional Health Concerns Infection Onset Date Last Indicated Resolved Time MRSAComment: Added from external infection. 11/07/201406/18 documented as of this encounter Care Teams Inclusion Teacher Relationship Specialty Start Date End Date Edgar Alfredo, PCP - General Family Practice 04/13/1208/11 [address] [facility] [address] [place] [address] System, Provider Not PCP - General Clinic 08/12/14 7 In Clinic, [facility] PCP - General 07/14/[address] [phone] Fernando Magana PCP - General Family Practice 12/07/16 01/19/[address] [phone] Clinic, [facility] PCP - General 01/20/[address] [phone] Juanis Levi PCP - General Addiction Medicine 06/29/21 [address] [place] [phone] Tatyana Haas, Assigned PCP 08/02/18 01/29/20 TOY ASSEMBLER PR SPECIALIST [facility] [address] [facility] [address] [place] [address] Stephani Pina, Assigned PCP 01/30/20 12/30/20 TOY ASSEMBLER PR SPECIALIST 606 [facility] [address] [place] [address] Tatyana Haas, Assigned PCP 12/31/20 02/24/21 TOY ASSEMBLER PR SPECIALIST [facility] [address] [facility] [address] [place] [address] Stephani Pina, Assigned PCP 02/25/21 TOY ASSEMBLER PR SPECIALIST [address] [place], [place] [address] Elsa Yeh, Registered Nurse Infectious Diseases 07/25/21 Rogelio Wilson Assigned Musculoskeletal 08/04/21 MD August Provider [address] [place], [place] [address] Luis Camara MD Podiatry 08/16/21 [place] Burnett [address] [place], [place] [address] Camryn Christina Assigned Surgical 09/01/21 09/07/21 MD Lexie Provider 420 [facility] 195 [place] [address] Sintia Lange PA-C Assigned Surgical 09/08/21 909 [facility] 4TH Provider FLOOR [place], [place] [address] Landon Warren MD Gastroenterology 11/21/21 MD Luis Fernando 516 [facility] [address] [place], [place] [address] documented as of this encounter
--- OUTSIDE RECORDS SUMMARY | 2021-12-14 16:31 | XMS_ITS | Encounter Summary ---
:1980 Author Organization [place] Address [facility] [place] [address] Care Team Providers Name Role Phone Edgar Alfredo MD Primary Care Provider Reason for Visit Reason Onset Date Comments Refill Request 09/15/2012 Bupropion Hcl ER (SR ) 150 mg Encounter Details Date Type Department Care Team Description 09/15/2012 Refill [facility] Edgar Alfredo, Ref ill Request Clinic Ashly VÁSQUEZ (Bupropion Hcl ER (SR) [address] [facility] [address] [place] 150 mg) [facility] [address] [place] [phone] (Wo rk) Social History Tobacco Use Types Packs/Day Years Used Date Smoking Tobacco: Every Day Cigarettes 0.5 10 Smokeless Tobacco: Never Alcohol Use Standard Drinks/Week Comments No 0 (1 standard drink = 0.6 oz pure alcoho l) Sex Assigned at Date Recorded Female 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 Marycarmen Spence RN Telephone Encounter - Nini Zheng RPH - 09/16/2012 3:15 PM CDT Will forward to . PHQ-9 is greater than 5. Nini Zheng, PharmD [facility] [phone] Telephone Encounter - Juanis Machuca - 09/15/2012 12:38 PM CDT [facility]. Requesting to get refill before she leaves. Last Fill Date: 06/09/2012 Last Fill Quantity: 60 Last Office Visit: 09/15/2012 Date of Last PHQ-9 score: 09/15/2012 Last PHQ-9 score on record= 6 AST 31 04/10/2010 ALT 41 04/10/2010 Thanks, Juanis Machuca, [facility] [address] [place] [address] 201 [place] [address] documented in this encounter Plan of Treatment Upcoming Encounters Date Type Specialty Care Team Description 12/20/2021 Office Visit Wound Care Luis Camara, [place] [address] [place] [address] (Wo rk) 01/21/2022 PRE VISIT Gastroenterology Landon Warren, *-*INCOMIN G RECORDS*-* MD Luis Fernando [address] [place] [phone] (Wo rk) 01/21/2022 Office Visit Gastroenterology Juanis Levi 2450 [place] [phone] Luis Fernando Miles MD [address] [place] [address] documented as of this encounter Visit Diagnoses Diagnosis Moderate major depression (H) - Primary Major depressive disorder, single episod e, moderate documented in this encounter Care Teams Arc Trimmer Relationship Specialty Start Date End Date Edgar Alfredo MD PCP - General Family Practice 04/13/12 08/11/[address] [place] [address] [place] [phone] documented as of this encounter
--- OUTSIDE RECORDS SUMMARY | 2021-12-14 16:31 | XMS_ITS | Encounter Summary ---
:1980 Author Organization [place] Address [facility] [place] [address] Care Team Providers Name Role Phone Edgar Alfredo MD Primary Care Provider Reason for Visit Reason Onset Date Comments Nurse Advice Line 11/28/2012 subutex Encounter Details Date Type Department Care Team Description 11/28/2012 Telephone [facility] Edgar Alfredo Nur se Advice Line Clinic Ashly VÁSQUEZ (subutex) [address] [facility] [address] [facility] [address] [place] [address] (Wo rk) Social History Tobacco Use Types Packs/Day Years Used Date Smoking Tobacco: Every Day Cigarettes 0.1 10 Smokeless Tobacco: Never Comments: 5 cigarettes a day Alcohol Use Standard Drinks/Week Comments No 0 (1 standard drink = 0.6 oz pure alcoho l) Sex Assigned at Date Recorded Female 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 I checked EPIC and saw that 24 had been prescribed on 11/16 whichshould last her until 12/09. Caller said she has none left. I had page op page cone trucker doctor to call pt at [phone]. Albania Brewer RN [facility] [phone] Telephone Encounter - Anthony Roger, RN - [...] Route to PCP clinic Anthony Roger RN [facility] documented in this encounter Plan of Treatment Upcoming Encounters Date Type Specialty Care Team Description 12/20/2021 Office Visit Wound Care Luis Camara DPM [address] [place], [place] [address] (Wo rk) 01/21/2022 PRE VISIT Gastroenterology Landon Warren, *-*INCOMIN G RECORDS*-* MD Luis Fernando [address] [place] [phone] (Wo rk) 01/21/2022 Office Visit Gastroenterology Juanis Levi 2450 [place] [phone] Luis Fernando Miles MD [address] [place] [address] documented as of this encounter Visit Diagnoses Not on filedocumented in this encounter Care Teams Delivery Room Supervisor Relationship Specialty Start Date End Date Edgar Alfredo MD PCP - General Family Practice 04/13/12 08/11/[address] [address] documented as of this encounter
--- OUTSIDE RECORDS SUMMARY | 2021-12-14 16:31 | XMS_ITS | Encounter Summary ---
:1980 Author Organization [place] Address 2450 [facility] [place] [address] Care Team Providers Name Role Phone Edgar Alfredo MD Primary Care Provider Reason for Visit Reason Onset Date Comments Recheck Medication Erroneous encounter-disregard 03/18/2013 Encounter Details Date Type Department Care Team Description 03/15/2013 Office Visit [facility] Edgar Alfredo ERRONEOUS Clinic Ashly Gauthier MD ENCOUNTER--DISREGARD [address] [place] (Primary Dx) [address] [place] [address] Social History Tobacco Use Types Packs/Day Years Used Date Smoking Tobacco: Every Day Cigarettes 0.1 10 Smokeless Tobacco: Never Comments: 5 cigarettes a day Alcohol Use Standard Drinks/Week Comments No 0 (1 standard drink = 0.6 oz pure alcoho l) Sex Assigned at Date Recorded Female 01/14/2020 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 Please disregard. ET ENGINEER documented in this encounter Plan of Treatment Upcoming Encounters Date Type Specialty Care Team Description 12/20/2021 Office Visit Wound Care Luis Camara, [place] [address] [place] [address] (Wo rk) 01/21/2022 PRE VISIT Gastroenterology Landon Warren, *-*WANDAIN G RECORDS*-* MD Luis Fernando [address] [facility] 2A [place] [address] (Wo rk) 01/21/2022 Office Visit Gastroenterology Juanis Levi 2450 [place] [address] Luis Fernando Miles MD [address] [phone] documented as of this encounter Visit Diagnoses Diagnosis ERRONEOUS ENCOUNTER--DISREGARD - Primary documented in this encounter Care Teams Customer Engineering Specialist Relationship Specialty Start Date End Date Edgar Alfredo MD PCP - General Family Practice 04/13/12 08/11/[address] [address] documented as of this encounter
--- OUTSIDE RECORDS SUMMARY | 2021-12-14 16:31 | XMS_ITS | Encounter Summary ---
:1980 Author Organization [place] Address [facility] [place] [place] [address] Care Team Providers Name Role Phone Edgar Alfredo MD Primary Care Provider System, Provider Not In Primary Care Provider Unavailable [facility], [facility] Primary Care Provide r Luis Fernando Magana Primary Care Provider [facility] Primary Care Provide r Tatyana Haas SPIRITS MODEL HVAC MANAGER Unavailable [phone] Stephani Pina SPIRITS MODEL HVAC MANAGER Unavailable [phone] Tatyana Haas SPIRITS MODEL HVAC MANAGER Unavailable [phone] Stephani Pina SPIRITS MODEL HVAC MANAGER Unavailable [phone] Juanis Levi Primary Care Provider Elsa Yeh RN Unavailable Unavailable Rogelio Treadwell MD Unavailable [phone] Luis CamaraM Unavailable [phone] Camryn Christina MD Unavailable Sintia Lange PA-C Unavailable Luis Fernando Miles MD Unavailable [phone] Reason for Visit Reason Onset Date Comments Other 01/08/2013 Encounter Details Date Type Department Care Team Description 01/08/2013 Telephone [facility] Nithya Alfredo MD Other [place] [address] [place] [address] 700 [address] [place], [place] [address] [address] [place], [place] [address] [phone] Social History Tobacco Use Types Packs/Day Years Used Date Smoking Tobacco: Every Day Cigarettes 0.1 10 Smokeless Tobacco: Never Comments: 5 cigarettes a day Alcohol Use Standard Drinks/Week Comments No 0 (1 standard drink = 0.6 oz pure alcoho l) Sex Assigned at Date Recorded Female 01/14/2020 10:57 AM WEB PAGE DEVELOPER documented as of this encounter Miscellaneous Notes Telephone Encounter - Chapis Diaz - 02/15/2013 12:01 PM CST PAGE DEVELOPER Telephone Encounter - Sintia Colon - 01/08/2013 [...] can for the ok. Sintia Colon RN PAGE DEVELOPER Telephone Encounter - Carmencita Blair - 01/08/2013 2:16 PM CST Pt accidentally took urine sample home yesterday that Dr. Alfredo was requesting and took medical ride so was unable to bring urine sample back, pt wants to know if she needs to come back right away for urine sample again Pt can be reached at [phone] PAGE DEVELOPER documented in this encounter Plan of Treatment Upcoming Encounters Date Type Specialty Care Team Description 12/20/2021 Office Visit Wound Care Luis Camara, [place] [address] [place] [address] (Wo rk) 01/21/2022 PRE VISIT Gastroenterology Landon Warren, *-*WANDAIN G RECORDS*-* MD Luis Fernando 516 [facility] 2A [place] [address] (Wo rk) 01/21/2022 Office Visit Gastroenterology Juanis Levi [address] [place] [address] Luis Fernando Miles MD [address] [address] documented as of this encounter Visit Diagnoses Diagnosis Opiate dependence (H) - Primary Opioid type dependence, unspecified documented in this encounter Additional Health Concerns Infection Onset Date Last Indicated Resolved Time MRSAComment: Added from external infection. 11/07/201406/18 documented as of this encounter Care Teams Director Of Clinical Services Relationship Specialty Start Date End Date Edgar Alfredo, PCP - General Family Practice 04/13/1208/11 [address] [facility] S [facility] 700 [place] [address] System, Provider Not PCP - General Clinic 08/12/14 7 In Clinic, [facility] PCP - General 07/14/[address] [address] Luis Fernando Magana PCP - General Family Practice 12/07/16 01/19/[address] [phone] Clinic, [facility] PCP - General 01/20/[address] [address] Juanis Levi PCP - General Addiction Medicine 06/29/21 2450 [place] [phone] Tatyana Haas, Assigned PCP 08/02/18 01/29/20 SPIRITS MODEL HVAC MANAGER [facility] [address] [facility] [address] [place], [place] [address] Stephani Pina, Assigned PCP 01/30/20 12/30/20 SPIRITS MODEL HVAC MANAGER [address] [place], [place] [address] Tatyana Haas, Assigned PCP 12/31/20 02/24/21 SPIRITS MODEL HVAC MANAGER [facility] [address] [facility] [address] [place], [place] [address] Stephani Pina, Assigned PCP 02/25/21 SPIRITS MODEL HVAC MANAGER [address] [place], [place] [address] Elsa Yeh, Registered Nurse Infectious Diseases 07/25/21 Rogelio Wilson Assigned Musculoskeletal 08/04/21 MD August Provider 9 [place], [place] [phone] Luis Camara MD Podiatry 08/16/21 [place] Burnett 9 [place], [place] [phone] Camryn Christina Assigned Surgical 09/01/21 09/07/21 MD Lexie Provider 420 [facility] 195 [place] [address] Sintia Lange PA-C Assigned Surgical 09/08/21 909 [facility] 4TH [place] [address] Landon Warren MD Gastroenterology 11/21/21 MD Luis Fernando 516 [facility] [address] [place] [address] documented as of this encounter
--- OUTSIDE RECORDS SUMMARY | 2021-12-14 16:31 | XMS_ITS | Encounter Summary ---
:1980 Author Organization [place] Address 2450 [facility] [place] [address] Care Team Providers Name Role Phone Edgar Alfredo MD Primary Care Provider Encounter Details Date Type Department Care Team Description 02/15/2013 Orders [facility] Opi ate dependence (H) [facility] [address] [place] [address] [address] [place], [place] [phone] Social History Tobacco Use Types Packs/Day Years Used Date Smoking Tobacco: Every Day Cigarettes 0.1 10 Smokeless Tobacco: Never Comments: 5 cigarettes a day Alcohol Use Standard Drinks/Week Comments No 0 (1 standard drink = 0.6 oz pure alcoho l) Sex Assigned at Date Recorded Female 01/14/2020 10:57 AM SOLUTION ARCHITECT documented as of this encounter Plan of Treatment Upcoming Encounters Date Type Specialty Care Team Description 12/20/2021 Office Visit Wound Care Luis Camara DPM 909 [place], [place] [address] (Wo rk) 01/21/2022 PRE VISIT Gastroenterology Landon Warren, *-*HEATHER Barriga RECORDS*-* MD Luis Fernando 516 [facility] [place], [place] [phone] (Wo rk) 01/21/2022 Office Visit Gastroenterology Juanis Levi 2450 [place] [address] Luis Fernando Miles MD 6 [facility] [address] [place] [address] documented as of this encounter Procedures Procedure Name Priority Date/Time Associated Diagnosis Comme nts DRUG ABUSE SCREEN 6 Routine 02/15/2013 2:56 PM Opiate dependen ce Results for this CHEM DEP URINE SOLUTION ARCHITECT (H) procedure are in ([facility]) the results section. documented in this encounter Results (ABNORMAL) Drug abuse screen 6 urine (chem dep) ([facility]) (02/15/2013 2:56 PM SOLUTION ARCHITECT) Component Value Ref Test Analysis Performed Pathologis t Range Method Time At Signature Amphetamine Qual Negative NEG [facility] Urine Cutoff for a negative amphetamine is 500 ng/mL or less. [facility] Barbiturates Qual Negative NEG [facility] Urine Cutoff for a negative barbiturate is 200 ng/mL or less. [facility] Benzodiazepine Negative NEG [facility] Qual Urine Cutoff for a negative benzodiazepine is 200 ng/mL or less . [facility] Cannabinoids Qual Negative NEG [facility] Urine Cutoff for a negative cannabinoid is 50 ng/mL or less. [facility] Cocaine Qual Positive NEG [facility] Urine Cutoff for a positive cocai ne is greater than 300 ng/mL. This is an unconfirmed [facility] screening result to be used for medical purposes only. LAB Testing performed using ToxSee method. (A) Ethanol Qual Negative NEG [facility] Urine Cutoff for a negative urine ethanol is 50 mg/dL or less. [facility] Opiates Negative NEG [facility] Qualitative Urine Cutoff for a negative opiate is 300 ng/mL or less. [facility] Specimen Anatomical Collection Method Collection Time Receive d Time (Source) Location / / Volume Laterality Urine specimen 02/15/2013 2:56 PM 013 3:01 (specimen) SOLUTION ARCHITECT PM SOLUTION ARCHITECT Edgar Alfredo MD LAB - URINE ORDERABLES Performing Organization Address City/State/ZIP Code Phon e Number [facility] [address] [place] [address] [facility] documented in this encounter Visit Diagnoses Diagnosis Opiate dependence (H) Opioid type dependence, unspecified documented in this encounter Care Teams Dip Filler Relationship Specialty Start Date End Date Edgar Alfredo MD PCP - General Family Practice 04/13/12 08/11/14 606 [facility] 700 [place] [phone] documented as of this encounter
--- OUTSIDE RECORDS SUMMARY | 2021-12-14 16:31 | XMS_ITS | Encounter Summary ---
:1980 Author Organization [place] Address [address] [place] [address] Care Team Providers Name Role Phone Edgar Alfredo MD Primary Care Provider Encounter Details Date Type Department Care Team Description 03/01/2013 Telephone [facility] Nithya Alfredo MD [place] [address] [facility] [address] [place], [place] [address] [address] [place] [phone] Social History Tobacco Use Types Packs/Day Years Used Date Smoking Tobacco: Every Day Cigarettes 0.1 10 Smokeless Tobacco: Never Comments: 5 cigarettes a day Alcohol Use Standard Drinks/Week Comments No 0 (1 standard drink = 0.6 oz pure alcoho l) Sex Assigned at Date Recorded Female 01/14/2020 10:57 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 HING ROOM SUPERVISOR documented in this encounter Plan of Treatment Upcoming Encounters Date Type Specialty Care Team Description 12/20/2021 Office Visit Wound Care Luis Camara, DPM 909 [place] [address] (Wo rk) 01/21/2022 PRE VISIT Gastroenterology Landon Warren, *-*HEATHER G RECORDS*-* MD Luis Fernando [address] [address] (Wo rk) 01/21/2022 Office Visit Gastroenterology Juanis Levi 2450 [place] [phone] Luis Fernando Miles MD [address] [place] [address] documented as of this encounter Visit Diagnoses Diagnosis Opiate dependence (H) - Primary Opioid type dependence, unspecified documented in this encounter Care Teams Casting Machine Set Up Operator Relationship Specialty Start Date End Date Edgar Alfredo MD PCP - General Family Practice 04/13/12 08/11/14 [address] [facility] 700 [place] [phone] documented as of this encounter
--- OUTSIDE RECORDS SUMMARY | 2021-12-14 16:31 | XMS_ITS | Encounter Summary ---
:1980 Author Organization [place] Address [facility] [place] [address] Care Team Providers Name Role Phone Edgar Alfredo MD Primary Care Provider Reason for Visit Reason Onset Date Comments Erroneous encounter-disregard 09/22/2012 Encounter Details Date Type Department Care Team Description 09/22/2012 [facility] Edgar Alfredo, Err oneous Clinic Ashly VÁSQUEZ encounter-disregard [address] [place] [address] [place] [address] [address] [place] [phone] (Wo rk) Social History Tobacco Use Types Packs/Day Years Used Date Smoking Tobacco: Every Day Cigarettes 0.5 10 Smokeless Tobacco: Never Alcohol Use Standard Drinks/Week Comments No 0 (1 standard drink = 0.6 oz pure alcoho l) Sex Assigned at Date Recorded Female 01/14/2020 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 documented as of this encounter Plan of Treatment Upcoming Encounters Date Type Specialty Care Team Description 12/20/2021 Office Visit Wound Care Luis Camara, [place] 909 [place], [place] [address] (Wo rk) 01/21/2022 PRE VISIT Gastroenterology Landon Warren, *-*HEATHER Barriga RECORDS*-* MD Luis Fernando 516 [facility] [place], [place] [address] (Wo rk) 01/21/2022 Office Visit Gastroenterology Juanis Levi 2450 [place] [address] Luis Fernando Miles MD 516 [facility] 2A [place], [place] [address] documented as of this encounter Visit Diagnoses Diagnosis Moderate major depression (H) - Primary Major depressive disorder, single episod e, moderate documented in this encounter Care Teams Reroller Hand Relationship Specialty Start Date End Date Edgar Alfredo MD PCP - General Family Practice 04/13/12 08/11/14 [address] [facility] 700 [place] [phone] documented as of this encounter
--- OUTSIDE RECORDS SUMMARY | 2021-12-14 16:31 | XMS_ITS | Encounter Summary ---
:1980 Author Organization [place] Address [address] [facility] [place] [address] Care Team Providers Name Role Phone Edgar Alfredo MD Primary Care Provider Reason for Visit Reason Comments Recheck Medication Encounter Details Date Type Department Care Team Description 07/23/2012 Office Visit [facility] Edgar Alfredo Opiate de pendence (H) Clinic Ashly Gauthier MD (Primary Dx) [address] [facility] [address] [facility] [address] [place] [phone] Social History Tobacco Use Types Packs/Day Years Used Date Smoking Tobacco: Every Day Cigarettes 0.5 10 Smokeless Tobacco: Never Alcohol Use Standard Drinks/Week Comments No 0 (1 standard drink = 0.6 oz pure alcoho l) Sex Assigned at Date Recorded Female 01/14/2020 10:57 AM PICTURE HANGER documented as of this encounter Last [...] Script for subutex was faxed to the [facility]. >> BRYNN HAMMOND FriJul 23, 2012 [...] completed using cuff size: regular Brynn Manish TRIMMING PRESS OPERATOR documented in this encounter Miscellaneous Notes Addendum Note - Brynn Hammond - 08/11/2012 4:52 PM CDT Addended by: BRYNN HAMMOND on: 08/11/2012 04:52 PM Modules accepted: SmartSet documented in this encounter Plan of Treatment Upcoming Encounters Date Type Specialty Care Team Description 12/20/2021 Office Visit Wound Care Luis Camara, [place] [address] [place] [address] (Wo rk) 01/21/2022 PRE VISIT Gastroenterology Landon Warren, *-*WANDAIN G RECORDS*-* MD Luis Fernando [address] [place] [phone] (Wo rk) 01/21/2022 Office Visit Gastroenterology Juanis Levi 2450 [place] [phone] Luis Fernando Miles MD [address] [place] [address] documented as of this encounter Visit Diagnoses Diagnosis Opiate dependence (H) - Primary Opioid type dependence, unspecified documented in this encounter Care Teams Stock Preparer Relationship Specialty Start Date End Date Edgar Alfredo MD PCP - General Family Practice 04/13/12 08/11/14 [address] [facility] 700 [place] [phone] documented as of this encounter
--- OUTSIDE RECORDS SUMMARY | 2021-12-14 16:31 | XMS_ITS | Encounter Summary ---
:1980 Author Organization [place] Address [address] [facility] [place] [address] Care Team Providers Name Role Phone Edgar Alfredo MD Primary Care Provider Reason for Visit Reason Onset Date Comments Erroneous encounter-disregard 03/04/2013 Encounter Details Date Type Department Care Team Description 03/01/2013 Office Visit [facility] Edgar Alfredo de pendence (H) (Primary Dx); Clinic Ashly Gauthier MD ERRONEOUS ENCOUNTER--DISREGARD [address] [place] [address] [place] [phone] Social History Tobacco Use Types Packs/Day Years Used Date Smoking Tobacco: Every Day Cigarettes 0.1 10 Smokeless Tobacco: Never Comments: 5 cigarettes a day Alcohol Use Standard Drinks/Week Comments No 0 (1 standard drink = 0.6 oz pure alcoho l) Sex Assigned at Date Recorded Female 01/14/2020 10:57 AM NET PROGRAMMER documented as of this encounter Progress Notes Edgar Alfredo MD - 03/04/2013 10:08 AM CST This encounter was opened in error. Please disregard. PROGRAMMER documented in this encounter Plan of Treatment Upcoming Encounters Date Type Specialty Care Team Description 12/20/2021 Office Visit Wound Care Luis Camara, [place] [address] [place], [place] [address] (Wo rk) 01/21/2022 PRE VISIT Gastroenterology Landon Warren, *-*INCOMIN G RECORDS*-* MD Luis Fernando 516 [facility] 2A [place], [place] [phone] (Wo rk) 01/21/2022 Office Visit Gastroenterology Juanis Levi [address] [place] [address] Luis Fernando Miles MD [address] [phone] documented as of this encounter Visit Diagnoses Diagnosis Opiate dependence (H) - Primary Opioid type dependence, unspecified ERRONEOUS ENCOUNTER--DISREGARD documented in this encounter Care Teams Telegraph Plant Maintainer Relationship Specialty Start Date End Date Edgar Alfredo MD PCP - General Family Practice 04/13/12 08/11/[address] [phone] documented as of this encounter
--- OUTSIDE RECORDS SUMMARY | 2021-12-14 16:31 | XMS_ITS | Encounter Summary ---
:1980 Author Organization [place] Address [address] [facility] [place] [address] Care Team Providers Name Role Phone Edgar Alfredo MD Primary Care Provider Reason for Visit Reason Onset Date Comments Refill Request 04/22/2013 Subox bridge Encounter Details Date Type Department Care Team Description 04/22/2013 Refill [facility] Edgar Alfredo , Refill Request ([facility] MD lundberg) [address] [place] [address] [place] [phone] (Wo rk) Social History Tobacco Use Types Packs/Day Years Used Date Smoking Tobacco: Every Day Cigarettes 0.1 10 Smokeless Tobacco: Never Comments: 5 cigarettes a day Alcohol Use Standard Drinks/Week Comments No 0 (1 standard drink = 0.6 oz pure alcoho l) Sex Assigned at Date Recorded Female 01/14/2020 10:57 AM 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 MATIC TOOL REPAIRER documented in this encounter Plan of Treatment Upcoming Encounters Date Type Specialty Care Team Description 12/20/2021 Office Visit Wound Care [place], Luis Lex, DPM 9[address] [place] [address] (Wo rk) 01/21/2022 PRE VISIT Gastroenterology Landon Warren, *-*INCOMIN G RECORDS*-* MD Luis Fernando [address] [address] (Wo rk) 01/21/2022 Office Visit Gastroenterology Juanis Levi 24[address] [place] [phone] Luis Fernando Miles MD [address] [phone] documented as of this encounter Visit Diagnoses Diagnosis Opiate dependence (H) - Primary Opioid type dependence, unspecified documented in this encounter Care Teams Plate Developer Relationship Specialty Start Date End Date Edgar Alfredo MD PCP - General Family Practice 04/13/12 08/11/[address] [address] documented as of this encounter
--- OUTSIDE RECORDS SUMMARY | 2021-12-14 16:31 | XMS_ITS | Encounter Summary ---
:1980 Author Organization [place] Address [address] [place] [address] Care Team Providers Name Role Phone Edgar Alfredo MD Primary Care Provider Reason for Visit Reason Onset Date Comments Refill Request 03/23/2013 suboxone Encounter Details Date Type Department Care Team Description 03/23/2013 Refill [facility] Edgar Alfredo, Ref ill Request [facility] (suboxone) [address] [place] [address] [place] [phone] (Wo rk) Social History Tobacco Use Types Packs/Day Years Used Date Smoking Tobacco: Every Day Cigarettes 0.1 10 Smokeless Tobacco: Never Comments: 5 cigarettes a day Alcohol Use Standard Drinks/Week Comments No 0 (1 standard drink = 0.6 oz pure alcoho l) Sex Assigned at Date Recorded Female 01/14/2020 10:57 AM JEWELRY INTERNSHIP documented as of this encounter Miscellaneous Notes Telephone Encounter - Suyapa Rodriguez - 03/24/2013 9:00 AM CST Tried to call patient, number below not good. Number in chart not good either. [employer] Telephone Encounter - Edgar Alfredo MD - 03/23/2013 2:52 PM CST Has missed too many appointments No refills until seen [employer] Telephone Encounter - Suyapa Rodriguez - 03/23/2013 2:34 PM CST Patient called, missed appt. today due to transportation not arriving. Rescheduled for this Thurs. Says she is out of suboxone, needs some to tide her over. She can be reached at [phone]. Suyapa Rodriguez, SENIOR COBOL DEVELOPER, DIRECTOR TELEMETRY [employer] documented in this encounter Plan of Treatment Upcoming Encounters Date Type Specialty Care Team Description 12/20/2021 Office Visit Wound Care Luis Camara, [place] [address] [place], [place] [phone] (Wo rk) 01/21/2022 PRE VISIT Gastroenterology Landon Warren, *-*INCOMIN G RECORDS*-* MD Luis Fernando [address] [place] [address] [address] [place], [place] [phone] (Wo rk) 01/21/2022 Office Visit Gastroenterology Juanis Levi [address] [place] [phone] Luis Fernando Miles MD [address] [place] [address] [address] [place] [address] documented as of this encounter Visit Diagnoses Not on filedocumented in this encounter Care Teams Department Editor Relationship Specialty Start Date End Date Edgar Alfredo MD PCP - General Family Practice 04/13/12 08/11/14 [address] [facility] 700 [place] [phone] documented as of this encounter
--- OUTSIDE RECORDS SUMMARY | 2021-12-14 16:31 | XMS_ITS | Encounter Summary ---
:1980 Author Organization [place] Address [address] [place] [address] Care Team Providers Name Role Phone Edgar Alfredo MD Primary Care Provider Reason for Visit Reason Onset Date Comments Recheck Medication Erroneous encounter-disregard 04/26/2013 Encounter Details Date Type Department Care Team Description 04/22/2013 Office Visit [facility] Edgar Alfredo ERRONEOUS Clinic Ashly Gauthier MD ENCOUNTER--DISREGARD [address] [place] (Primary Dx) [address] [place] [phone] Social History Tobacco Use Types Packs/Day Years Used Date Smoking Tobacco: Every Day Cigarettes 0.1 10 Smokeless Tobacco: Never Comments: 5 cigarettes a day Alcohol Use Standard Drinks/Week Comments No 0 (1 standard drink = 0.6 oz pure alcoho l) Sex Assigned at Date Recorded Female 01/14/2020 10:57 AM TUBE TRAILER FILLER documented as of this encounter Progress Notes Edgar Alfredo MD - 04/26/2013 11:27 AM CDT This encounter was opened in error. Please disregard. documented in this encounter Plan of Treatment Upcoming Encounters Date Type Specialty Care Team Description 12/20/2021 Office Visit Wound Care Luis Camara, [place] [address] [place], [place] [phone] (Wo rk) 01/21/2022 PRE VISIT Gastroenterology Landon Warren, *-*INCOMIN G RECORDS*-* MD Luis Fernando [address] [address] (Wo rk) 01/21/2022 Office Visit Gastroenterology Juanis Levi [address] [place] [address] Luis Fernando Miles MD [address] [phone] documented as of this encounter Visit Diagnoses Diagnosis ERRONEOUS ENCOUNTER--DISREGARD - Primary documented in this encounter Care Teams Jack Strip Assembler Relationship Specialty Start Date End Date Edgar Alfredo MD PCP - General Family Practice 04/13/12 08/11/[address] [place] [phone] documented as of this encounter
--- OUTSIDE RECORDS SUMMARY | 2021-12-14 16:31 | XMS_ITS | Encounter Summary ---
:1980 Author Organization [place] Address [facility] [place] [address] Care Team Providers Name Role Phone Edgar Alfredo MD Primary Care Provider Reason for Visit Reason Onset Date Comments Refill Request 09/16/2012 bupropion Encounter Details Date Type Department Care Team Description 09/16/2012 Refill [facility] Edgar Alfredo, Ref ill Request Clinic Ashly VÁSQUEZ (bupropion ) [address] [facility] [address] [facility] [address] [place] [phone] (Wo rk) Social History Tobacco Use Types Packs/Day Years Used Date Smoking Tobacco: Every Day Cigarettes 0.5 10 Smokeless Tobacco: Never Alcohol Use Standard Drinks/Week Comments No 0 (1 standard drink = 0.6 oz pure alcoho l) Sex Assigned at Date Recorded Female 01/14/2020 10:57 AM 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 SERVICE 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 documented as of this encounter Miscellaneous [...] Wound Care [place] Luis Lex, DPM [address] [place] [address] (Wo rk) 01/21/2022 PRE VISIT Gastroenterology Landon Warren, *-*WANDAIN G RECORDS*-* MD Luis Fernando 516 [facility] 2A [place], [place] [address] (Wo rk) 01/21/2022 Office Visit Gastroenterology Juanis Levi [address] [place] [phone] Luis Fernando Miles MD 6 [facility] [address] [place] [address] documented as of this encounter Visit Diagnoses Diagnosis Moderate major depression (H) - Primary Major depressive disorder, single episod e, moderate documented in this encounter Care Teams Job Spotter Relationship Specialty Start Date End Date Edgar Alfredo MD PCP - General Family Practice 04/13/12 08/11/[address] [facility] 700 [place] [phone] documented as of this encounter
--- OUTSIDE RECORDS SUMMARY | 2021-12-14 16:31 | XMS_ITS | Encounter Summary ---
:1980 Author Organization [place] Address [facility]0 [facility] [place] [address] Care Team Providers Name Role Phone Edgar Alfredo MD Primary Care Provider Reason for Visit Reason Comments RECHECK PHQ9 Recheck Medication No concerns Encounter Details Date Type Department Care Team Description 10/08/2012 Office Visit [facility] Edgar Alfredo Moderate major depression (H) (Primary Dx); Clinic Ashly Gauthier MD Opiate dependence (H) [address] [facility] [address] [facility] [address] [place] [phone] Social History Tobacco Use Types Packs/Day Years Used Date Smoking Tobacco: Every Day Cigarettes 0.1 10 Smokeless Tobacco: Never Comments: 5 cigarettes a day Alcohol Use Standard Drinks/Week Comments No 0 (1 standard drink = 0.6 oz pure alcoho l) Sex Assigned at Date Recorded Female 01/14/2020 10:57 AM ACTIVITIES OFFICER documented as of this encounter Last [...] 1:15 PM CDT >> ANN MARIE JOHNSON [facility] Oct 08, 2012 2:00 PM Suboxone RX was faxed to [facility] Ann Marie Johnson [facility] >> SHANI LIND [facility] Oct 08, 2012 1:40 PM Patient presents [...] Wound Care [place] Luislaurel Burnett, [place] [address] [place] [address] (Wo rk) 01/21/2022 PRE VISIT Gastroenterology Landon Warren, *-*WANDAIN G RECORDS*-* MD Luis Fernando [address] [place] [address] (Wo rk) 01/21/2022 Office Visit Gastroenterology Juanis Levi [address] [place] [phone] Luis Fernando Miles MD [address] [place] [phone] documented as of this encounter Procedures Procedure Name Priority Date/Time Associated Diagnosis Comme nts DRUG ABUSE SCREEN 6 Routine 10/08/2012 2:34 PM Opiate dependen ce Results for this CHEM DEP URINE CDT (H) procedure are in ([facility]) the results section. documented in this encounter Results (ABNORMAL) Drug abuse screen 6 urine (chem dep) ([facility]) (10/08/2012 2:34 PM CDT) Component Value Ref Test Analysis Performed Pathologis t Range Method Time At Signature Amphetamine Qual Positive NEG [facility] Urine Cutoff for a positive amphetamine is greater th an 500 ng/mL. This is an [facility] unconfirmed screening result to be used for medical purpose s only. (A) LAB Barbiturates Qual Negative NEG [facility] Urine Cutoff for a negative barbiturate is 200 ng/mL or less. [facility] Benzodiazepine Negative NEG [facility] Qual Urine Cutoff for a negative benzodiazepine is 200 ng/mL or less . [facility] Cannabinoids Qual Negative NEG [facility] Urine Cutoff for a negative cannabinoid is 50 ng/mL or less. [facility] Cocaine Qual Negative NEG [facility] Urine Cutoff for a negative cocaine is 300 ng/mL or less. [facility] Ethanol Qual Negative NEG [facility] Urine Cutoff for a negative urine ethanol is 50 mg/dL or less. [facility] Opiates Negative NEG [facility] Qualitative Urine Cutoff for a negative opiate is 300 ng/mL or less. [facility] Specimen Anatomical Collection Method Collection Time Receive d Time (Source) Location / / Volume Laterality Urine specimen 10/08/2012 2:34 PM 013 2:35 (specimen) CDT PM CDT Edgar Alfredo MD LAB - URINE ORDERABLES Performing Organization Address City/State/ZIP Code Phon e Number [facility] [address] [place] [address] [facility] documented in this encounter Visit Diagnoses Diagnosis Moderate major depression (H) - Primary Major depressive disorder, single episod e, moderate Opiate dependence (H) Opioid type dependence, unspecified documented in this encounter Care Teams Face Boss Relationship Specialty Start Date End Date Edgar Alfredo MD PCP - General Family Practice 04/13/12 08/11/14 [address] [place] [phone] documented as of this encounter
--- OUTSIDE RECORDS SUMMARY | 2021-12-14 16:31 | XMS_ITS | Encounter Summary ---
:1980 Author Organization [place] Address [address] [facility] [place] [address] Care Team Providers Name Role Phone Edgar Alfredo MD Primary Care Provider Reason for Visit Reason Onset Date Comments Refill Request 11/30/2012 Encounter Details Date Type Department Care Team Description 11/30/[address] 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 Camacho on [employer]ilian[employer]: [phone] documented in this encounter Plan of Treatment Upcoming Encounters Date Type Specialty Care Team Description 12/20/2021 Office Visit Wound Care Luis Camara DPM [address] [place] [address] (Wo rk) 01/21/2022 PRE VISIT Gastroenterology Landon Warren, *-*HEATHER Barriga RECORDS*-* MD Luis Fernando 516 [facility] 2A [place], [place] [address] (Wo rk) 01/21/2022 Office Visit Gastroenterology Juanis Levi [address] [place] [address] Luis Fernando Miles MD 516 [facility] 2A [place], [place] [phone] documented as of this encounter Visit Diagnoses Not on filedocumented in this encounter Care Teams Endocrinologist Relationship Specialty Start Date End Date Edgar Alfredo MD PCP - General Family Practice 04/13/12 08/11/[address] [facility] 700 [place] [address] documented as of this encounter
--- OUTSIDE RECORDS SUMMARY | 2021-12-14 16:31 | XMS_ITS | Encounter Summary ---
:1980 Author Organization [place] Address [address] [facility] [place] [address] Care Team Providers Name Role Phone Edgar Alfredo MD Primary Care Provider Reason for Visit Reason Comments Recheck Medication Encounter Details Date Type Department Care Team Description 04/27/2013 Office Visit [facility] Edgar Alfredo Opiate de pendence (H) (Primary Dx); Clinic Ashly Gauthier MD Moderate major depression (H) [address] [place] [address] [place] [address] Social History Tobacco Use Types Packs/Day Years Used Date Smoking Tobacco: Every Day Cigarettes 0.1 10 Smokeless Tobacco: Never Comments: 5 cigarettes a day Alcohol Use Standard Drinks/Week Comments No 0 (1 standard drink = 0.6 oz pure alcoho l) Sex Assigned at Date Recorded Female 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 documented as of this encounter Last [...] using cuff size: large Suyapa Rodriguez CMA, AUTO BODY REPAIRER FIBERGLASS documented in this encounter Plan of Treatment Upcoming Encounters Date Type Specialty Care Team Description 12/20/2021 Office Visit Wound Care Luis Camara DPM [address] [place], [place] [address] (Reinaldo molina) 01/21/2022 PRE VISIT Gastroenterology Landon Warren, *-*HEATHER G RECORDS*-* MD Luis Fernando 516 [facility] 2A [place], [place] [address] (Reinaldo molina) 01/21/2022 Office Visit Gastroenterology Juanis Levi [address] [place] [address] Luis Fernando Miles MD 516 [facility] [address] [place] [address] documented as of this encounter Procedures Procedure [...] outs misc test (04/27/2013 11:57 AM CDT) [facility] ImmunGene Method Time Signature Test Name BUPRENORPHINE RJ [...] Organization Address City/State/[place] [address] [facility] Building [address] [address] [facility] Drug abuse screen (NL, RW) (04/27/2013 11:52 AM CDT) [facility] ImmunGene Method Time Signature Methamphetamine Negative [facility] [...] Organization Address City/State/[place] [address] [facility] Building [address] [facility] documented in this encounter Visit Diagnoses Diagnosis Opiate dependence (H) - Primary Opioid type dependence, unspecified Moderate major depression (H) Major depressive disorder, single episod e, moderate documented in this encounter Care Teams Ip Technology Transactions Attorney Relationship Specialty Start Date End Date Edgar Alfredo MD PCP - General Family Practice 04/13/12 08/11/[address] [place] [address] [place] [phone] documented as of this encounter
--- OUTSIDE RECORDS SUMMARY | 2021-12-14 16:31 | XMS_ITS | Encounter Summary ---
:1980 Author Organization [place] Address [address] [facility] [place] [address] Care Team Providers Name Role Phone Edgar Alfredo MD Primary Care Provider Reason for Visit Reason Onset Date Comments Refill Request 11/16/2012 Encounter Details Date Type Department Care Team Description 11/16/2012 Refill [facility] Nithya Alfredo MD Refill Request [place] [address] [address] [place] [address] Suite [facility] [address] [place] [phone] Social History Tobacco Use Types Packs/Day Years Used Date Smoking Tobacco: Every Day Cigarettes 0.1 10 Smokeless Tobacco: Never Comments: 5 cigarettes a day Alcohol Use Standard Drinks/Week Comments No 0 (1 standard drink = 0.6 oz pure alcoho l) Sex Assigned at Date Recorded Female 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 Telephone Encounter - Marycarmen Spence - [...] Visit Wound Care Luis Camara, [place] [address] [place], [place] [address] (Wo rk) 01/21/2022 PRE VISIT Gastroenterology Landon Warren, *-*INCOMIN G RECORDS*-* MD Luis Fernando [address] [place] [address] (Wo rk) 01/21/2022 Office Visit Gastroenterology Juanis Levi [address] [place] [phone] Luis Feranndo Miles MD [address] [place] [address] documented as of this encounter Visit Diagnoses Diagnosis Opiate dependence (H) - Primary Opioid type dependence, unspecified documented in this encounter Care Teams Inventory Control Specialist Relationship Specialty Start Date End Date Edgar Alfredo MD PCP - General Family Practice 04/13/12 08/11/[address] [place] [phone] documented as of this encounter
--- OUTSIDE RECORDS SUMMARY | 2021-12-14 16:31 | XMS_ITS | Encounter Summary ---
:1980 Author Organization [place] Address [facility] [place] [address] Care Team Providers Name Role Phone Edgar Alfredo MD Primary Care Provider Reason for Visit Reason Onset Date Comments Refill Request 02/24/2013 Encounter Details Date Type Department Care Team Description 02/24/2013 Refill [facility] Myles Llamas, Refill Request Ashly VÁSQUEZ [address] [facility] [address] 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 Alfredo on 02/24/13. Will f/u per his instructions prn. Nancy Kelley RN February 25, 2013 10:51 AM WILLOW OPERATOR Telephone Encounter - Sintia Colon - 02/24/2013 4:13 PM CST Pt called and I have advised her to call Dr. Alfredo's office ([phone]). She then called the front desk representative again wondering if Dr. Llamas could fill the suboxone since Dr. Alfredo is out and he refilled it in the past. I informed her that technically Dr. Llamas and Dr. Alfredo do not work together anymore and Dr. Alfredo has to refill his patients meds. She out completely out today. Please review the order that is cued up. Sintia Colon RN WILLOW OPERATOR Telephone Encounter - April Mccauley - 02/24/2013 4:06 PM CST 1. Name of Med(s): suboxone 2. Last OV: 3. Current Dosage (if available): 4. Quantity Prescribed: 5. Prescribed Refills: 6. Si. Pharmacy: 8. [facility] off [address], suboxone current out WILLOW OPERATOR Telephone Encounter - Ryan Molina - 02/24/2013 4:01 PM CST Called and said she needs a refill for Subutex. Dr. Llamas only prescribe through today. She sees 03/01. She can be reached at [phone] WILLOW OPERATOR documented in this encounter Plan of Treatment Upcoming Encounters Date Type Specialty Care Team Description 12/20/2021 Office Visit Wound Care Luis Camara, [place] [address] [place] [phone] (Wo rk) 01/21/2022 PRE VISIT Gastroenterology Landon Warren, *-*WANDAIN G RECORDS*-* MD Luis Fernando [address] [place] [address] [address] [place], [place] [address] (Wo rk) 01/21/2022 Office Visit Gastroenterology Juanis Levi [address]50 [place] [phone] Luis Fernando Miles MD [address] [place] [address] [address] [place], [place] [phone] documented as of this encounter Visit Diagnoses Diagnosis Opiate dependence (H) - Primary Opioid type dependence, unspecified documented in this encounter Care Teams Sap Ppm Consultant Relationship Specialty Start Date End Date Edgar Alfredo MD PCP - General Family Practice 04/13/12 08/11/[address] [place] [address] 700 [place] [phone] documented as of this encounter
--- OUTSIDE RECORDS SUMMARY | 2021-12-14 16:31 | XMS_ITS | Encounter Summary ---
:1980 Author Organization [place] Address [address] [place] [place] [address] Care Team Providers Name Role Phone Edgar Alfredo MD Primary Care Provider Encounter Details Date Type Department Care Team Description 03/25/2013 Office Visit [facility] Mando Hwang Opiate dependence (H) (Primary Dx); Clinic CONY Trejo Moderate major depression (H); [address] Anxiety [address] [place] [phone] Social History Tobacco Use Types Packs/Day Years Used Date Smoking Tobacco: Every Day Cigarettes 0.1 10 Smokeless Tobacco: Never Comments: 5 cigarettes a day Alcohol Use Standard Drinks/Week Comments No 0 (1 standard drink = 0.6 oz pure alcoho l) Sex Assigned at Date Recorded Female 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 Behavioral Health Clinician Progress Note Screening Brief Intervention Referral Treatment (SBIRT) March 25, 2013 Patient Name: Stephani Parker Service Type: Commercial [id number] (15-30 Minute SBIRT Screen And / Or [...] Dr. Alfredo relocates his practice. This [facility] met with the patient in order to [...] to a move she has discontinued. [facility] invited patient to establish primary healthcare services here if they have need or would like to, informed her of medically assisted treatment/suboxone support group that will be meeting weekly, and offered [facility] services now or in the future, as [...] follow up appointment with the clinic [facility] as needed. CONY Muñoz, [facility] DENTIAL ELECTRICIAN documented in this encounter Plan of Treatment Upcoming Encounters Date Type Specialty Care Team Description 12/20/2021 Office Visit Wound Care [facility] Luislaurel Burnett, DPM [address] [place] [address] (Wo rk) 01/21/2022 PRE VISIT Gastroenterology Landon Warren, *-*INCOMIN G RECORDS*-* MD Luis Fernando [address] [place] [address] [address] [place] [address] (Wo rk) 01/21/2022 Office Visit Gastroenterology Juanis Levi [address] [place] [address] Luis Fernando Miles MD [address] [address] documented as of this encounter Visit Diagnoses Diagnosis Opiate dependence (H) - Primary Opioid type dependence, unspecified Moderate major depression (H) Major depressive disorder, single episod e, moderate Anxiety Anxiety state, unspecified documented in this encounter Care Teams Membership Coordinator Relationship Specialty Start Date End Date Edgar Alfredo MD PCP - General Family Practice 04/13/12 08/11/14 [address] [facility] 700 [place] [address] documented as of this encounter
--- OUTSIDE RECORDS SUMMARY | 2021-12-14 16:31 | XMS_ITS | Encounter Summary ---
:1980 Author Organization [place] Address [address] [facility] [place] [address] Care Team Providers Name Role Phone Edgar Alfredo MD Primary Care Provider Reason for Visit Reason Onset Date Comments Medication Request 03/15/2013 subutex Encounter Details Date Type Department Care Team Description 03/15/2013 Telephone [facility] Edgar Alfredo, 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 Said she missed her appt. due to car trouble. Has new appt. on 03/23/13. She is out of her med. Needs new Rx. She can be reached at [phone]. Suyapa Rodriguez, WEB PROJECT MANAGER, INSTRUCTOR [employer] ERENCE ORGANIZER documented in this encounter Plan of Treatment Upcoming Encounters Date Type Specialty Care Team Description 12/20/2021 Office Visit Wound Care Luis Camara, [place] [address] [place], [place] [phone] (Wo rk) 01/21/2022 PRE VISIT Gastroenterology Landon Warren, *-*INCOMIN G RECORDS*-* MD Luis Fernando [address] [place] [address] [address] [place] [address] (Wo rk) 01/21/2022 Office Visit Gastroenterology Juanis Levi [address] [place] [phone] Luis Fernando Miles MD [address] [place] [address] [address] [place], [place] [address] documented as of this encounter Visit Diagnoses Diagnosis Opiate dependence (H) - Primary Opioid type dependence, unspecified documented in this encounter Care Teams Maintainer Plant Relationship Specialty Start Date End Date Edgar Alfredo MD PCP - General Family Practice 04/13/12 08/11/[address] [place] [address] 700 [place] [phone] documented as of this encounter
--- OUTSIDE RECORDS SUMMARY | 2021-12-14 16:31 | XMS_ITS | Encounter Summary ---
:1980 Author Organization [place] Address [address] [facility] [place] [address] Care Team Providers Name Role Phone Edgar Alfredo MD Primary Care Provider Reason for Visit Reason Onset Date Comments Recheck Medication Erroneous encounter-disregard 04/29/2013 Encounter Details Date Type Department Care Team Description 04/26/2013 Office Visit [facility] Edgar Alfredo ERRONEOUS Clinic Ashly Gauthier MD ENCOUNTER--DISREGARD [address] [place] (Primary Dx) [address] [place] [phone] Social History Tobacco Use Types Packs/Day Years Used Date Smoking Tobacco: Every Day Cigarettes 0.1 10 Smokeless Tobacco: Never Comments: 5 cigarettes a day Alcohol Use Standard Drinks/Week Comments No 0 (1 standard drink = 0.6 oz pure alcoho l) Sex Assigned at Date Recorded Female 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 Please disregard. documented in this encounter Plan of Treatment Upcoming Encounters Date Type Specialty Care Team Description 12/20/2021 Office Visit Wound Care Luis Camara, [place] [address] [place], [place] [phone] (Wo rk) 01/21/2022 PRE VISIT Gastroenterology Landon Warren, *-*INCOMIN G RECORDS*-* MD Luis Fernando [address] [address] (Wo rk) 01/21/2022 Office Visit Gastroenterology Juanis Levi [address] [place] [address] Luis Fernando Miles MD [address] [phone] documented as of this encounter Visit Diagnoses Diagnosis ERRONEOUS ENCOUNTER--DISREGARD - Primary documented in this encounter Care Teams Python Consultant Relationship Specialty Start Date End Date Edgar Alfredo MD PCP - General Family Practice 04/13/12 08/11/[address] [place] [phone] documented as of this encounter
--- OUTSIDE RECORDS SUMMARY | 2021-12-14 16:31 | XMS_ITS | Encounter Summary ---
:1980 Author Organization [place] Address [facility]0 [facility] [place] [address] Care Team Providers Name Role Phone Edgar Alfredo MD Primary Care Provider Reason for Visit Reason Onset Date Comments Refill Request 10/30/2012 subutex 8mg Encounter Details Date Type Department Care Team Description 10/30/[address] [facility] Edgar Alfredo, Ref ill Request (subutex Clinic [place] 8mg) [address] [facility] [address] [facility] [address] 700 [place] [phone] (Wo rk) Social History Tobacco Use Types Packs/Day Years Used Date Smoking Tobacco: Every Day Cigarettes 0.1 10 Smokeless Tobacco: Never Comments: 5 cigarettes a day Alcohol Use Standard Drinks/Week Comments No 0 (1 standard drink = 0.6 oz pure alcoho l) Sex Assigned at Date Recorded Female 01/14/2020 10:57 AM VP DATA documented as of this encounter Miscellaneous Notes Telephone Encounter - Sintia Colon - 10/30/2012 3:23 PM CDT Pt requested that the suboxone be faxed to the [facility] on [address] instead. I have cancelled the RX at [facility] and faxed it to the requested pharmacy. Sintia Colon RN Telephone Encounter - Sintia Colon - 10/30/2012 2:53 PM CDT RX for suboxon has been faxed to [facility]. Sintia Colon RN Telephone Encounter - Madonna Cody - 10/30/2012 10:12 AM CDT Stephani called and said that she needs a refill on her subutex on the 03 of November. She made her next appointment with Dr. Alfredo on the 10 of November. She moved so she has a new pharmacy and that is the [facility] off of [address] and their telephone number is [phone]. Any questions she can bereached at [phone]. Telephone Encounter - Natanael Lima - 10/30/2012 9:46 AM CDT Last Fill Date: 10-08-12 Last Quantity: 34 Danisha Ornelas Research And Development Specialist [facility]: [place] Please call patient with any questions at [phone] documented in this encounter Plan of Treatment Upcoming Encounters Date Type Specialty Care Team Description 12/20/2021 Office Visit Wound Care Luis Camara DPM [address] [place], [place] [phone] (Wo rk) 01/21/2022 PRE VISIT Gastroenterology Landon Warren, *-*HEATHER Barriga RECORDS*-* MD Luis Fernando [address] [address] (Wo rk) 01/21/2022 Office Visit Gastroenterology Juanis Levi [address] [place] [phone] Luis Fernando Miles MD 516 [facility] [address] [place], [place] [address] documented as of this encounter Visit Diagnoses Diagnosis Opiate dependence (H) - Primary Opioid type dependence, unspecified documented in this encounter Care Teams Early Breastfeeding Care Specialist Relationship Specialty Start Date End Date Edgar Alfredo MD PCP - General Family Practice 04/13/12 08/11/14 [address] [place] [address] [place] [address] documented as of this encounter
--- OUTSIDE RECORDS SUMMARY | 2021-12-14 16:31 | XMS_ITS | Encounter Summary ---
:1980 Author Organization [place] Address [facility] [place] [address] Care Team Providers Name Role Phone Edgar Alfredo MD Primary Care Provider Reason for Visit Reason Comments Recheck Medication PHQ9 Encounter Details Date Type Department Care Team Description 12/10/2012 Office Visit [facility] Edgar Alfredo Opiate de pendence (H) (Primary Dx); Clinic Ashly Gauthier MD Moderate major depression (H) [address] [facility] [address] [place] [phone] Social History Tobacco Use Types Packs/Day Years Used Date Smoking Tobacco: Every Day Cigarettes 0.1 10 Smokeless Tobacco: Never Comments: 5 cigarettes a day Alcohol Use Standard Drinks/Week Comments No 0 (1 standard drink = 0.6 oz pure alcoho l) Sex Assigned at Date Recorded Female 01/14/2020 10:57 AM 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 Caroline Colon, RN >> BRYNN HAMMOND [facility] Dec 10, 2012 5:20 PM Patient [...] Visit Wound Care Luis Camara, DPM [address] [place] [address] (Wo rk) 01/21/2022 PRE VISIT Gastroenterology Landon Warren, *-*WANDAIN G RECORDS*-* MD Luis Fernando 516 [facility] [address] [place] [address] (Wo rk) 01/21/2022 Office Visit Gastroenterology Juanis Levi [address] [place] [phone] Luis Fernando Miles MD [address] [address] documented as of this encounter Visit Diagnoses Diagnosis Opiate dependence (H) - Primary Opioid type dependence, unspecified Moderate major depression (H) Major depressive disorder, single episod e, moderate documented in this encounter Care Teams Photographic Hand Developer Relationship Specialty Start Date End Date Edgar Alfredo MD PCP - General Family Practice 04/13/12 08/11/14 [address] [facility] [address] [place] [address] [place] [phone] documented as of this encounter
--- OUTSIDE RECORDS SUMMARY | 2021-12-14 16:31 | XMS_ITS | Encounter Summary ---
:1980 Author Organization [place] Address [facility]0 [facility] [place] [address] Care Team Providers Name Role Phone Edgar Alfredo MD Primary Care Provider Reason for Visit Reason Comments RECHECK PHQ9- PCP patient due for DA P/letters Recheck Medication she would like to talk about her antidepressant. Encounter Details Date Type Department Care Team Description 09/15/2012 Office Visit [facility] Edgar Alfredo Moderate major depression (H) (Primary Dx); Clinic Ashly Gauthier MD Opiate dependence (H); [address] [place] [address] [place] [address] [address] [place] [phone] Social History Tobacco Use Types Packs/Day Years Used Date Smoking Tobacco: Every Day Cigarettes 0.5 10 Smokeless Tobacco: Never Alcohol Use Standard Drinks/Week Comments No 0 (1 standard drink = 0.6 oz pure alcoho l) Sex Assigned at Date Recorded Female 01/14/2020 10:57 AM RETAIL FIELD MERCHANDISER documented as of this encounter Last Filed [...] Script for subutex was faxed to the [facility]. >> ADELINE MASSEY FriSep 15, 2012 [...] Visit Wound Care Luis Camara, [place] [address] [place], [place] [address] (Wo rk) 01/21/2022 PRE VISIT Gastroenterology Landon Warren, *-*WANDAIN G RECORDS*-* MD Luis Fernando [address] [place] [address] [address] [place], [place] [phone] (Wo rk) 01/21/2022 Office Visit Gastroenterology Juanis Levi [address] [place] [phone] Luis Fernando Miles MD [address] [place] [address] [address] [place], [place] [address] documented as of this encounter Visit Diagnoses Diagnosis Moderate major depression (H) - Primary Major depressive disorder, single episod e, moderate Opiate dependence (H) Opioid type dependence, unspecified Anxiety Anxiety state, unspecified documented in this encounter Care Teams Pulp Mill Supervisor Relationship Specialty Start Date End Date Edgar Alfredo MD PCP - General Family Practice 04/13/12 08/11/14 [address] [facility] 700 [place] [phone] documented as of this encounter
--- OUTSIDE RECORDS SUMMARY | 2021-12-14 16:31 | XMS_ITS | Encounter Summary ---
:1980 Author Organization [place] Address [address] [facility] [place] [address] Care Team Providers Name Role Phone Edgar Alfredo MD Primary Care Provider Reason for Visit Reason Onset Date Comments Medication Request 03/08/2013 Encounter Details Date Type Department Care Team Description 03/08/2013 Telephone [facility] Edgar Alfredo Ma rk, Medication Request Ashly VÁSQUEZ [address] [place] [address] [place] [phone] (Wo rk) Social History Tobacco Use Types Packs/Day Years Used Date Smoking Tobacco: Every Day Cigarettes 0.1 10 Smokeless Tobacco: Never Comments: 5 cigarettes a day Alcohol Use Standard Drinks/Week Comments No 0 (1 standard drink = 0.6 oz pure alcoho l) Sex Assigned at Date Recorded Female 01/14/2020 10:57 AM NURSING CLINICAL DIRECTOR documented as of this encounter Miscellaneous Notes Telephone Encounter - Edgar Alfredo MD - 03/08/2013 11:55 AM CST Missed appointment due to problems with medical transportation; not her fault Re-scheduled for 1 week 1 week bridge ordered ING CLINICAL DIRECTOR Telephone Encounter - Violeta Hunter - 03/08/2013 11:32 AM CST Patient calling in. Needed to reschedule provider appointment originally scheduled for 03/08 does have an appointment scheduled for 03/15/13. Patient is calling to get a refill of her Subutex. Best number to reach patient - [phone] Thank you Violeta Knight Administrative Analyst ING CLINICAL DIRECTOR documented in this encounter Plan of Treatment Upcoming Encounters Date Type Specialty Care Team Description 12/20/2021 Office Visit Wound Care Luis Camara, [place] [address] [place] [address] (Wo rk) 01/21/2022 PRE VISIT Gastroenterology Landon Warren, *-*INCOMIN G RECORDS*-* MD Luis Fernando [address] [place] [address] (Wo rk) 01/21/2022 Office Visit Gastroenterology Juanis Levi [address] [place] [address] Luis Fernando Miles MD [address] [place] [phone] documented as of this encounter Visit Diagnoses Diagnosis Opiate dependence (H) - Primary Opioid type dependence, unspecified documented in this encounter Care Teams Core Drier Relationship Specialty Start Date End Date Edgar Alfredo MD PCP - General Family Practice 04/13/12 08/11/14 [address] [facility] 700 [place] [address] documented as of this encounter
--- OUTSIDE RECORDS SUMMARY | 2021-12-14 16:31 | XMS_ITS | Encounter Summary ---
:1980 Author Organization [place] Address [address] [facility] [place] [address] Care Team Providers Name Role Phone Edgar Alfredo MD Primary Care Provider Reason for Visit Reason Comments Recheck Medication Encounter Details Date Type Department Care Team Description 03/25/2013 Office Visit [facility] Edgra Alfredo pendence (H) Clinic Ashly Gauthier MD (Primary Dx) [address] [place] [address] [place] [address] Social History Tobacco Use Types Packs/Day Years Used Date Smoking Tobacco: Every Day Cigarettes 0.1 10 Smokeless Tobacco: Never Comments: 5 cigarettes a day Alcohol Use Standard Drinks/Week Comments No 0 (1 standard drink = 0.6 oz pure alcoho l) Sex Assigned at Date Recorded Female 01/14/2020 10:57 AM SWIMMING POOL MAINTENANCE documented as of this encounter Last Filed Vital Signs Vital Sign Reading Time Taken Comments Blood Pressure 142/74 03/25/2013 3:07 PM SWIMMING POOL MAINTENANCE Pulse 84 03/25/2013 3:07 PM SWIMMING POOL MAINTENANCE Temperature - - Respiratory Rate - - [...] RETURN TOMORROW TO LEAVE URINE. TO SEE [facility]. MING POOL MAINTENANCE documented in this encounter Nursing Notes 03/25/2013 3:00 PM CST >> SUYAPA MURRAY Zoe Mar 25, 2013 3:08 PM Patient presents with: Recheck Medication Initial BP 142/74 Pulse 84 Estimated Body mass index is 25.06 kg/(m^2) as calculated from the following: Height as of 01/07/13: 5' 5.5(1.664 m). Weight as of 01/07/13: 153 lb(69.4 kg). BP completed using cuff size: large Suyapa Murray, COMPUTER REPAIR ENGINEER, FOSTER CARE WORKER documented in this encounter Plan of Treatment Upcoming Encounters Date Type Specialty Care Team Description 12/20/2021 Office Visit Wound Care Luis Camara DPM [address] [place], [place] [phone] (Reinaldo molina) 01/21/2022 PRE VISIT Gastroenterology Landon Warren, *-*HEATHER G RECORDS*-* MD Luis Fernando [address] [facility] [address] [place], [place] [address] (Reinaldo molina) 01/21/2022 Office Visit Gastroenterology Juanis Levi [address] [place] [address] Luis Fernando Miles MD [address] [facility] [address] [place] [address] documented as of this encounter Procedures Procedure Name Priority Date/Time Associated Diagnosis Comme nts SEND OUTS MISC TEST Routine 03/26/2013 3:45 PM Re sults for this SWIMMING POOL MAINTENANCE procedure are i n the results section. DRUG ABUSE SCREEN Routine 03/25/2013 3:47 PM Opiate dependence Results for this (NL, RW) SWIMMING POOL MAINTENANCE (H) procedure are i n the results section. documented in this encounter Results Send outs misc test (03/26/2013 3:45 PM SWIMMING POOL MAINTENANCE) [facility] gist Method Time Signature Test Name BUPRENORPHINE [facility] Send Outs Urine [facility] Misc Test Specimen Result Negative [facility] Normal Range Negative LAB for Send Outs Misc Test Specimen Anatomical Collection Method Collection Time Receive d Time (Source) Location / / Volume Laterality 03/26/2013 3:45 PM 4 3:53 SWIMMING POOL MAINTENANCE PM SWIMMING POOL MAINTENANCE Edgar Alfredo MD LAB - BLOOD ORDERABLES Performing Organization Address City/State/[place] [address] [facility] Building [address] [place] [address] [address] [facility] Drug abuse screen (NL, RW) (03/25/2013 3:47 PM SWIMMING POOL MAINTENANCE) [facility] Method Time Signature Methamphetamine Negative RJ [...] specimen 03/25/2013 3:47 PM 014 3:52 (specimen) SWIMMING POOL MAINTENANCE PM SWIMMING POOL MAINTENANCE Edgar Alfredo MD LAB - URINE ORDERABLES Performing Organization Address City/State/[place] [address] [facility] Building [address] [facility] documented in this encounter Visit Diagnoses Diagnosis Opiate dependence (H) - Primary Opioid type dependence, unspecified documented in this encounter Care Teams Spinner Continuous Relationship Specialty Start Date End Date Edgar Alfredo MD PCP - General Family Practice 04/13/12 08/11/[address] [address] [place] [phone] documented as of this encounter
--- OUTSIDE RECORDS SUMMARY | 2021-12-14 16:31 | XMS_ITS | Encounter Summary ---
:1980 Author Organization [place] Address [facility] [place] [address] Care Team Providers Name Role Phone Edgar Workman MD Primary Care Provider Reason for Visit Reason Onset Date Comments Medication Request 08/14/2012 Encounter Details Date Type Department Care Team Description 08/14/2012 Telephone [facility] Edgar Workman Ma rk, Medication Request Ashly VÁSQUEZ 606 [address] [address] [place] [address] [address] [place] [phone] (Wo rk) Social History Tobacco Use Types Packs/Day Years Used Date Smoking Tobacco: Every Day Cigarettes 0.5 10 Smokeless Tobacco: Never Alcohol Use Standard Drinks/Week Comments No 0 (1 standard drink = 0.6 oz pure alcoho l) Sex Assigned at Date Recorded Female 01/14/2020 10:57 AM CRYSTAL MACHINING COORDINATOR documented as of this encounter Miscellaneous Notes Telephone Encounter - Madonna Cody - 08/17/2012 11:19 AM CDT Script for subutex was faxed to the [facility] in [place]. Telephone Encounter - Marycarmen Spence - 08/17/2012 [...] Current Dosage (if available): 8mg 3) Pharmacy: [facility] in [place] 1) Name of Med(s): wellburtin 2) Current Dosage (if available): 150MG 3) Pharmacy: [facility] in [place] Please call pt at [phone] with any additiona questions/concerns. documented in this encounter Plan of Treatment Upcoming Encounters Date Type Specialty Care Team Description 12/20/2021 Office Visit Wound Care Luis Camara, DPM [address] [place] [address] (Wo rk) 01/21/2022 PRE VISIT Gastroenterology Landon Warren, *-*WANDAIN G RECORDS*-* MD Luis Fernando [address] [place] [address] [address] [place], [place] [address] (Wo rk) 01/21/2022 Office Visit Gastroenterology Juanis Levi [address] [place] [phone] Luis Fernando Miles MD [address] [place] [address] documented as of this encounter Visit Diagnoses Diagnosis Moderate major depression (H) - Primary Major depressive disorder, single episod e, moderate Opiate dependence (H) Opioid type dependence, unspecified documented in this encounter Care Teams Business Operations Consultant Relationship Specialty Start Date End Date Edgar Workman MD PCP - General Family Practice 04/13/12 08/11/14 [address] [facility] 700 [place] [phone] documented as of this encounter
--- OUTSIDE RECORDS SUMMARY | 2021-12-14 16:31 | XMS_ITS | Encounter Summary ---
:1980 Author Organization [place] Address [facility] [address] Care Team Providers Name Role Phone Edgar Alfredo MD Primary Care Provider Reason for Visit Reason Comments Recheck Medication Encounter Details Date Type Department Care Team Description 01/07/2013 Office Visit [facility] Edgar Alfredo Opiate de pendence (H) (Primary Dx); Clinic Ashly Gauthier MD Moderate major depression (H) [address] [facility] [address] [facility] [address] [place] [phone] Social History Tobacco Use Types Packs/Day Years Used Date Smoking Tobacco: Every Day Cigarettes 0.1 10 Smokeless Tobacco: Never Comments: 5 cigarettes a day Alcohol Use Standard Drinks/Week Comments No 0 (1 standard drink = 0.6 oz pure alcoho l) Sex Assigned at Date Recorded Female 01/14/2020 10:57 AM CYBER TRANSPORT SYSTEMS SPECIALIST documented as of this encounter Last Filed Vital Signs Vital Sign Reading Time Taken Comments Blood Pressure 114/69 01/07/2013 11:29 AM CYBER TRANSPORT SYSTEMS SPECIALIST Pulse 78 01/07/2013 11:29 AM CYBER TRANSPORT SYSTEMS SPECIALIST Temperature 36.4 ??C (97.6 ??F) 01/07/2013 11:29 AM CYBER TRANSPORT SYSTEMS SPECIALIST Respiratory Rate - - Oxygen Saturation 98% 01/07/2013 11:29 AM CYBER TRANSPORT SYSTEMS SPECIALIST Inhaled Oxygen Concentration - - Weight 69.4 kg (153 lb) 01/07/2013 11:29 AM CYBER TRANSPORT SYSTEMS SPECIALIST Height 166.4 cm (5' 5.5) 01/07/2013 11:29 AM CYBER TRANSPORT SYSTEMS SPECIALIST Body Mass Index 25.07 01/07/2013 11:29 AM CYBER TRANSPORT SYSTEMS SPECIALIST documented in this encounter Progress Notes Edgar Alfredo MD - 01/09/2013 7:50 AM CST Stephani Parker is here for a periodic Suboxone follow-up. Since last visit patient has been: stable. There has been: no craving. Cues to use and relapse triggers have been: mild. Recovery program has been: active. Uses her bahai Contact with sponsor has been: no sponsor. [...] relapse, and establishing a solid recovery program. R TRANSPORT SYSTEMS SPECIALIST documented in this encounter Nursing Notes 01/07/2013 [...] Wound Care Luis Camara, DPCamryn [address] [place] [address] (Wo rk) 01/21/2022 PRE VISIT Gastroenterology Landon Warren, *-*WANDAIN G RECORDS*-* MD Luis Fernando 6 [facility] 2A [place], [place] [address] (Wo rk) 01/21/2022 Office Visit Gastroenterology Juanis Levi 24[address] [place] [phone] Luis Fernando Miles MD [address] [place] [phone] documented as of this encounter Visit Diagnoses Diagnosis Opiate dependence (H) - Primary Opioid type dependence, unspecified Moderate major depression (H) Major depressive disorder, single episod e, moderate documented in this encounter Care Teams Negative Developer Relationship Specialty Start Date End Date Edgar Alfredo MD PCP - General Family Practice 04/13/12 08/11/14 [address] [facility] 700 [place] [address] documented as of this encounter
--- OUTSIDE RECORDS SUMMARY | 2021-12-14 16:31 | XMS_ITS | Encounter Summary ---
:1980 Author Organization [place] Address [address] [facility] [address] Care Team Providers Name Role Phone Edgar Alfredo MD Primary Care Provider Reason for Visit Reason Onset Date Comments Call Back 02/03/2013 Encounter Details Date Type Department Care Team Description 02/03/2013 Telephone [facility] Nithya Alfredo MD Call Back [place] 606 [address] [address] [place], [place] Suite [facility] [address] [place] [phone] Social History Tobacco Use Types Packs/Day Years Used Date Smoking Tobacco: Every Day Cigarettes 0.1 10 Smokeless Tobacco: Never Comments: 5 cigarettes a day Alcohol Use Standard Drinks/Week Comments No 0 (1 standard drink = 0.6 oz pure alcoho l) Sex Assigned at Date Recorded Female 01/14/2020 10:57 AM FURNACE MAINTENANCE documented as of this encounter Miscellaneous Notes Telephone Encounter - Chapis Diaz - 02/04/2013 9:52 AM CST Pt notified she will need us to confirm ride into clinic through her insurance.. To come in for testing. rx faxed. Chapis Diaz RN ACE MAINTENANCE Telephone Encounter - Edgar Alfredo MD - 02/04/2013 9:48 AM CST Refilled 1 week supply; needs to come in for drug screen within 1 week before further refills ACE MAINTENANCE Telephone Encounter - Sintia Colon - 02/03/2013 3:55 PM CST Please see note below. Last OV was on 01/07/2013, refilled 01/07/2013 #42. Pt unable to come in tomorrow, but she did scheduled for 03/[address] Order cued up. Sintia Colon RN ACE MAINTENANCE Telephone Encounter - April Mccauley - 02/03/2013 3:43 PM CST Patient called in stating that she has an appointment with tona tomorrow, 02/04/2013 bu is unable tocome at that time due to also needing to go to court, patient requesting a call back from tona to discuss next steps. Also subutex will be out tomorrow, phone number [phone] (new cellphone number). ACE MAINTENANCE documented in this encounter Plan of Treatment Upcoming Encounters Date Type Specialty Care Team Description 12/20/2021 Office Visit Wound Care Luis Camara DPM [address] [place] [address] (Wo rk) 01/21/2022 PRE VISIT Gastroenterology Landon Warren, *-*HEATHER G RECORDS*-* MD Luis Fernando 516 [facility] 2[address] [place] [address] (Wo rk) 01/21/2022 Office Visit Gastroenterology Juanis Levi 2450 [place] [address] Luis Fernando Miles MD 516 [facility] [address] [place], [place] [address] documented as of this encounter Visit Diagnoses Diagnosis Opiate dependence (H) - Primary Opioid type dependence, unspecified documented in this encounter Care Teams Mechanical Technician Relationship Specialty Start Date End Date Edgar Alfredo MD PCP - General Family Practice 04/13/12 08/11/[address] [facility] [address] [facility] 700 [place] [address] documented as of this encounter
--- OUTSIDE RECORDS SUMMARY | 2021-12-14 16:31 | XMS_ITS | Encounter Summary ---
:1980 Author Organization [place] Address [address] [facility] [place] [address] Care Team Providers Name Role Phone Edgar Alfredo MD Primary Care Provider Reason for Visit Reason Onset Date Comments Recheck Medication Erroneous encounter-disregard 03/23/2013 Encounter Details Date Type Department Care Team Description 03/23/2013 Office Visit [facility] Edgar Alfredo ERRONEOUS Clinic Ashly Gauthier MD ENCOUNTER--DISREGARD [address] [place] (Primary Dx) [address] [place] [address] Social History Tobacco Use Types Packs/Day Years Used Date Smoking Tobacco: Every Day Cigarettes 0.1 10 Smokeless Tobacco: Never Comments: 5 cigarettes a day Alcohol Use Standard Drinks/Week Comments No 0 (1 standard drink = 0.6 oz pure alcoho l) Sex Assigned at Date Recorded Female 01/14/2020 10:57 AM MATERIAL CONTROL MANAGER documented as of this encounter Progress Notes Edgar Alfredo MD - 03/23/2013 12:43 PM CST This encounter was opened in error. Please disregard. RIAL CONTROL MANAGER documented in this encounter Plan of Treatment Upcoming Encounters Date Type Specialty Care Team Description 12/20/2021 Office Visit Wound Care Luis Camara, [place] 909 [place] [address] (Wo rk) 01/21/2022 PRE VISIT Gastroenterology Landon Warren, *-*WANDAIN G RECORDS*-* MD Luis Fernando 6 [facility] [address] [place] [address] (Wo rk) 01/21/2022 Office Visit Gastroenterology Juanis Levi [address]50 [place] [address] Luis Fernando Miles MD [address] [phone] documented as of this encounter Visit Diagnoses Diagnosis ERRONEOUS ENCOUNTER--DISREGARD - Primary documented in this encounter Care Teams Process Tank Tender Relationship Specialty Start Date End Date Edgar Alfredo MD PCP - General Family Practice 04/13/12 08/11/14 [address] [address] documented as of this encounter
--- OUTSIDE RECORDS SUMMARY | 2021-12-14 16:32 | XMS_ITS | Encounter Summary ---
:1980 Author Organization [place] Address [facility] [place] [address] Care Team Providers Name Role Phone None, Bfp Primary Care Provider Unavailable Reason for Visit Reason Onset Date Comments RECHECK PAP date Erroneous encounter-disregard 03/30/2012 Encounter Details Date Type Department Care Team Description 03/30/2012 Office Visit [facility] Edgar Alfredo ERRONEOUS Clinic Ashly Gauthier MD ENCOUNTER--DISREGARD 606 24[facility] [address] [place] [address] (Primary Dx) [address] [place] [phone] Social History Tobacco Use Types Packs/Day Years Used Date Smoking Tobacco: Every Day Cigarettes 0.5 10 Smokeless Tobacco: Never Alcohol Use Standard Drinks/Week Comments No 0 (1 standard drink = 0.6 oz pure alcoho l) Sex Assigned at Date Recorded Female 01/14/2020 10:57 AM DATABASE ADMIN documented as of this encounter Progress Notes Edgar Alfredo MD - 03/30/2012 11:35 AM CST This encounter was opened in error. Please disregard. BASE ADMIN documented in this encounter Plan of Treatment Upcoming Encounters Date Type Specialty Care Team Description 12/20/2021 Office Visit Wound Care Luis Camara, [place] [address] [place] [address] (Wo rk) 01/21/2022 PRE VISIT Gastroenterology Landon Warren, *-*WANDAIN G RECORDS*-* MD Luis Fernando [address] [address] (Wo rk) 01/21/2022 Office Visit Gastroenterology Juanis Levi [address] [place] [phone] Luis Fernando Miles MD [address] [address] documented as of this encounter Visit Diagnoses Diagnosis ERRONEOUS ENCOUNTER--DISREGARD - Primary documented in this encounter Care Teams Potato Picker Relationship Specialty Start Date End Date None, Bfp PCP - General 03/02/99 04/12/12 documented as of this encounter
--- OUTSIDE RECORDS SUMMARY | 2021-12-14 16:32 | XMS_ITS | Encounter Summary ---
:1980 Author Organization [place] Address [facility] [place] [address] Care Team Providers Name Role Phone Edgar Alfredo MD Primary Care Provider Reason for Visit Reason Onset Date Comments RECHECK PHQ9-PCP patient nee ds DAP/letters Erroneous encounter-disregard 07/26/2012 Encounter Details Date Type Department Care Team Description 07/23/2012 Office Visit [facility] Edgar Alfredo Moderate major depression (H) (Primary Dx); Clinic Ashly Gauthier MD ERRONEOUS ENCOUNTER--DISREGARD [address] [place] [address] [place] [address] [address] [place] [address] Social History Tobacco Use Types Packs/Day Years Used Date Smoking Tobacco: Every Day Cigarettes 0.5 10 Smokeless Tobacco: Never Alcohol Use Standard Drinks/Week Comments No 0 (1 standard drink = 0.6 oz pure alcoho l) Sex Assigned at Date Recorded Female 01/14/2020 10:57 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 DIRECTOR OF SALES documented as of this encounter Progress Notes Edgar Alfredo MD - 07/26/2012 1:05 PM CDT This encounter was opened in error. Please disregard. documented in this encounter Plan of Treatment Upcoming Encounters Date Type Specialty Care Team Description 12/20/2021 Office Visit Wound Care Luis Camara, [place] [address] [place] [address] (Wo rk) 01/21/2022 PRE VISIT Gastroenterology Landon Warren, *-*INCOMIN G RECORDS*-* MD Luis Fernando [address] [place] [address] [address] [place] [address] (Wo rk) 01/21/2022 Office Visit Gastroenterology Juanis Levi [address] [place] [address] Luis Fernando Miles MD [address] [address] documented as of this encounter Visit Diagnoses Diagnosis Moderate major depression (H) - Primary Major depressive disorder, single episod e, moderate ERRONEOUS ENCOUNTER--DISREGARD documented in this encounter Care Teams Chief Crew Scheduler Relationship Specialty Start Date End Date Edgar Alfredo MD PCP - General Family Practice 04/13/12 08/11/14 [address] [facility] 700 [place] [phone] documented as of this encounter
--- OUTSIDE RECORDS SUMMARY | 2021-12-14 16:32 | XMS_ITS | Encounter Summary ---
:1980 Author Organization [place] Address [address] [facility] [address] Care Team Providers Name Role Phone None, Bfp Primary Care Provider Unavailable Encounter Details Date Type Department Care Team Description 11/30/2011 Abstract [facility] Edgar Alfredo [facility] Historical Records: Clinic [place] Notes [address] [facility] [address] [facility] [address] [place] [address] (Wo rk) Social History Tobacco Use Types Packs/Day Years Used Date Smoking Tobacco: Every Day Cigarettes 0.5 10 Smokeless Tobacco: Never Alcohol Use Standard Drinks/Week Comments No 0 (1 standard drink = 0.6 oz pure alcoho l) Sex Assigned at Date Recorded Female 01/14/2020 10:57 AM HEAD IRRIGATOR documented as of this encounter Plan of Treatment Upcoming Encounters Date Type Specialty Care Team Description 12/20/2021 Office Visit Wound Care Luis Camara, [place] [address] [place] [address] (Wo rk) 01/21/2022 PRE VISIT Gastroenterology Landon Warren, *-*HEATHER Barriga RECORDS*-* MD Luis Fernando [address] [facility] [address] [place] [address] (Wo rk) 01/21/2022 Office Visit Gastroenterology Juanis Levi [address] [place] [place] [address] Luis Fernando Miles MD 516 [facility] [address] [place], [place] [address] documented as of this encounter Procedures Procedure [...] on filedocumented in this encounter Care Teams Fresh Foods Clerk Relationship Specialty Start Date End Date None, Bfp PCP - General 03/02/99 04/12/12 documented as of this encounter
--- OUTSIDE RECORDS SUMMARY | 2021-12-14 16:32 | XMS_ITS | Encounter Summary ---
:1980 Author Organization [place] Address [address] [place] [address] Care Team Providers Name Role Phone None, Bfp Primary Care Provider Unavailable Edgar Alfredo MD Primary Care Provider Reason for Visit Reason Comments Recheck Medication u/a Encounter Details Date Type Department Care Team Description 04/10/2012 Office Visit [facility] Edgar Alfredo Anxiety ( Primary Dx); Clinic Ashly Gauthier MD complicated by chemical depend ency, antepartum (H); [address] [facility] [address] [facility] Vitamin B12 deficiency (non anaemic); [address] Opiate dependence (H) [place] [phone] Social History Tobacco Use Types Packs/Day Years Used Date Smoking Tobacco: Every Day Cigarettes 0.5 10 Smokeless Tobacco: Never Alcohol Use Standard Drinks/Week Comments No 0 (1 standard drink = 0.6 oz pure alcoho l) Sex Assigned at Date Recorded Female 01/14/2020 10:57 AM DIALS SUPERVISOR documented as of this encounter Last Filed Vital Signs Vital Sign Reading Time Taken Comments Blood Pressure 118/57 04/10/2012 4:20 PM DIALS SUPERVISOR Pulse 88 04/10/2012 4:20 PM DIALS SUPERVISOR Temperature 37.1 ??C (98.7 ??F) 04/10/2012 4:20 PM DIALS SUPERVISOR Respiratory Rate - - Oxygen Saturation 98% 04/10/2012 4:20 PM DIALS SUPERVISOR Inhaled Oxygen Concentration - - Weight 73 kg (161 lb) 04/10/2012 4:20 PM DIALS SUPERVISOR Height 166.4 cm (5' 5.5) 04/10/2012 4:20 PM DIALS SUPERVISOR Body Mass Index 26.38 04/10/2012 4:20 PM DIALS SUPERVISOR documented in this encounter Progress Notes [...] of care; discussed tapering before delivery S SUPERVISOR documented in this encounter Nursing Notes 04/10/2012 4:30 PM CST >> FERN MARINELLI FriApr 10, 2012 5:01 PM Script for subutex was faxed to the [facility]. >> BRYNN PORTER FriApr 10, 2012 [...] completed using cuff size: regular Brynn Manish NATURAL GAS ENGINEER documented in this encounter Plan of Treatment Upcoming Encounters Date Type Specialty Care Team Description 12/20/2021 Office Visit Wound Care Luis Camara, [place] [address] [place] [address] (Wo rk) 01/21/2022 PRE VISIT Gastroenterology Landon Warren, *-*WANDAIN G RECORDS*-* MD Luis Fernando [address] [facility] [address] [place], [place] [phone] (Wo rk) 01/21/2022 Office Visit Gastroenterology Juanis Levi [address] [place] [address] Luis Fernando Miles MD [address] [address] documented as of this encounter Procedures Procedure Name Priority Date/Time Associated Diagnosis Comme nts DRUG ABUSE SCREEN 6 Routine 04/10/2012 5:10 PM Re sults for this CHEM DEP URINE DIALS SUPERVISOR procedure are in ([facility]) the results section. documented in this encounter Results Drug abuse screen 6 urine (chem dep) ([facility]) (04/10/2012 5:10 PM DIALS SUPERVISOR) Component Value Ref Test Analysis Performed Pathologis t Range Method Time At Signature Amphetamine Qual Negative NEG [facility] Urine Cutoff for a negative amphetamine is 500 ng/mL or less. [facility] Barbiturates Qual Negative NEG [facility] Urine Cutoff for a negative barbiturate is 200 ng/mL or less. [facility] Benzodiazepine Negative NEG [facility] Qual Urine Cutoff for a negative benzodiazepine is 200 ng/mL or less . [facility] Cannabinoids Qual Negative NEG [facility] Urine Cutoff for a negative cannabinoid is 50 ng/mL or less. [facility] Cocaine Qual Negative NEG [facility] Urine Cutoff for a negative cocaine is 300 ng/mL or less. [facility] Ethanol Qual Negative NEG [facility] Urine Cutoff for a negative urine ethanol is 50 mg/dL or less. [facility] Opiates Negative NEG [facility] Qualitative Urine Cutoff for a negative opiate is 300 ng/mL or less. [facility] Specimen Anatomical Collection Method Collection Time Receive d Time (Source) Location / / Volume Laterality 04/10/2012 5:10 PM 3 7:14 DIALS SUPERVISOR PM DIALS SUPERVISOR Egdar Alfredo MD LAB - URINE ORDERABLES Performing Organization Address City/State/ZIP Code Phon e Number [facility] [address] [place] [address] [facility] documented in this encounter Visit Diagnoses Diagnosis Anxiety - Primary Anxiety state, unspecified complicated by chemical depend ency, antepartum Drug dependence, antepartum Vitamin B12 deficiency (non anaemic) Other B-complex deficiencies Opiate dependence (H) Opioid type dependence, unspecified documented in this encounter Care Teams Claim Clerk Relationship Specialty Start Date End Date None, Bfp PCP - General 03/02/99 04/12/12 Edgar Alfredo MD PCP - General Family Practice 04/13/12 08/11/[address] [place] [phone] documented as of this encounter
--- OUTSIDE RECORDS SUMMARY | 2021-12-14 16:32 | XMS_ITS | Encounter Summary ---
:1980 Author Organization [place] Address [address] [facility] [place] [address] Care Team Providers Name Role Phone None, Bfp Primary Care Provider Unavailable Encounter Details Date Type Department Care Team Description 01/21/2012 Telephone [facility] Nithya Alfredo MD [place] [address] [place] [phone] [place] [address] [phone] Social History Tobacco Use Types Packs/Day Years Used Date Smoking Tobacco: Every Day Cigarettes 0.5 10 Smokeless Tobacco: Never Alcohol Use Standard Drinks/Week Comments No 0 (1 standard drink = 0.6 oz pure alcoho l) Sex Assigned at Date Recorded Female 01/14/2020 10:57 AM [employer] DIRECTOR documented as of this encounter Miscellaneous Notes Telephone Encounter - Sintia Colon - 01/22/2012 1:25 PM CST PA for subutex aprroved- #30month/one year. Sintia Colon RN ISSION FOR THE BLIND DIRECTOR Telephone Encounter - Chapis Diaz - 01/21/2012 2:25 PM CST Faxed Chapis Diaz RN ISSION FOR THE BLIND DIRECTOR Telephone Encounter - Chapis Diaz - 01/21/2012 1:47 PM CST [employer] faxed buprenorphin 8 mg needs prior auth Id [id number] Insurance health [employer]/senior sales representative--will fax us form we can write urgent on form and they will get to it immediately. Chapis Diaz RN ISSION FOR THE BLIND DIRECTOR documented in this encounter Plan of Treatment Upcoming Encounters Date Type Specialty Care Team Description 12/20/2021 Office Visit Wound Care Luis Camara DPM [address] [place], [place] [phone] (Wo rk) 01/21/2022 PRE VISIT Gastroenterology Landon Warren, *-*INCOMIN G RECORDS*-* MD Luis Fernando [address] [place] [phone] (Wo rk) 01/21/2022 Office Visit Gastroenterology Juanis Levi [address] [place] [phone] Luis Fernando Miles MD [address] [place] [phone] documented as of this encounter Visit Diagnoses Not on filedocumented in this encounter Care Teams Pond Sawyer Relationship Specialty Start Date End Date None, Bfp PCP - General 03/02/99 04/12/12 documented as of this encounter
--- OUTSIDE RECORDS SUMMARY | 2021-12-14 16:32 | XMS_ITS | Encounter Summary ---
:1980 Author Organization [place] Address [facility] [place] [address] Care Team Providers Name Role Phone None, Bfp Primary Care Provider Unavailable Edgar Alfredo MD Primary Care Provider Reason for Visit Reason Onset Date Comments Medication Compliance Issues 01/02/2012 Subutex Encounter Details Date Type Department Care Team Description 01/02/2012 Telephone [facility] Edgar Alfredo, [facility] ication Compliance Clinic Ashly VÁSQUEZ Issues (Subutex) [address] [facility] [address] [place] [address] [address] [place] [phone] (Wo rk) Social History Tobacco Use Types Packs/Day Years Used Date Smoking Tobacco: Every Day Cigarettes 0.5 10 Smokeless Tobacco: Never Alcohol Use Standard Drinks/Week Comments No 0 (1 standard drink = 0.6 oz pure alcoho l) Sex Assigned at Date Recorded Female 01/14/2020 10:57 AM TEMPERATURE CONTROL INSPECTOR documented as of this encounter Miscellaneous Notes Telephone Encounter - Marycarmen Spence - 01/02/2012 4:50 PM CST Inquiry routed to provider to review. Marycarmen Spence RN ERATURE CONTROL INSPECTOR Telephone Encounter - Edgar Alfredo MD - 01/02/2012 4:49 PM CST Patient was on 12 mg Suboxone I am reducing dose to 10 mg for 2 weeks then 8 mg per day Since she is I have switched to Subutex ERATURE CONTROL INSPECTOR Telephone Encounter - Alia Cunningham - 01/02/2012 4:45 PM CST Clinic Action Needed: Call pharmacy to verify medication and dosage. Reason for Call: To clarify med order for Subutex 8mg tab and 2mg tabs. Last prescribed Suboxone 8-2mg and was noted at last refill plans to decrease medication. Received order today for Subutex instead of Suboxone Patient Recommendations/Teaching:Message through [employer] and left message on phone. Teaching per [facility] Care guidelines. Routed to: Dr. Alfredo and nurse libby Cunningham RN [facility] [phone] ERATURE CONTROL INSPECTOR documented in this encounter Plan of Treatment Upcoming Encounters Date Type Specialty Care Team Description 12/20/2021 Office Visit Wound Care Luis Camara DPM [address] [place] [address] (Wo rk) 01/21/2022 PRE VISIT Gastroenterology Landon Warren, *-*INCOMIN G RECORDS*-* MD Luis Fernando [address] [place] [phone] (Wo rk) 01/21/2022 Office Visit Gastroenterology Juanis Levi [address] [place] [phone] Luis Fernando Miles MD [address] [place] [phone] documented as of this encounter Visit Diagnoses Not on filedocumented in this encounter Care Teams Data Communications Engineer Relationship Specialty Start Date End Date None, Bfp PCP - General 03/02/99 04/12/12 Edgar Alfredo MD PCP - General Family Practice 04/13/12 08/11/14 [address] [facility] 700 [place] [phone] documented as of this encounter
--- OUTSIDE RECORDS SUMMARY | 2021-12-14 16:32 | XMS_ITS | Encounter Summary ---
:1980 Author Organization [place] Address [facility] [place] [address] Care Team Providers Name Role Phone None, Bfp Primary Care Provider Unavailable Reason for Visit Reason Comments RECHECK please ask about current PAP date Recheck Medication Encounter Details Date Type Department Care Team Description 11/07/2011 Office Visit [facility] Edgar Alfredo de pendence (H) (Primary Dx); Clinic Ashly Gauthier MD Moderate major depression (H) [address] [facility] [address] [facility] [address] [place] [phone] Social History Tobacco Use Types Packs/Day Years Used Date Smoking Tobacco: Every Day Cigarettes 0.5 10 Smokeless Tobacco: Never Alcohol Use Standard Drinks/Week Comments No 0 (1 standard drink = 0.6 oz pure alcoho l) Sex Assigned at Date Recorded Female 01/14/2020 10:57 AM LIME MIXER TENDER documented as of this encounter Last [...] Script for suboxone was faxed to the [facility] >> ROSALINE VAZQUEZ [facility] Nov 07, 2011 11:42 AM Patient [...] completed using cuff size: regular Rosaline Vazquez RN PLACEMENT documented in this encounter Plan of Treatment Upcoming Encounters Date Type Specialty Care Team Description 12/20/2021 Office Visit Wound Care Luis Camara, [place] [address] [place] [address] (Wo rk) 01/21/2022 PRE VISIT Gastroenterology Navarrete Marshall Kelvin, *-*WANDAIN G RECORDS*-* MD Luis Fernando 6 [facility] 2[address] [place], [place] [address] (Wo rk) 01/21/2022 Office Visit Gastroenterology Juanis Levi [address] [place] [address] Luis Fernando Miles MD 6 [facility] 2A [place], [place] [address] documented as of this encounter Visit Diagnoses Diagnosis Opiate dependence (H) - Primary Opioid type dependence, unspecified Moderate major depression (H) Major depressive disorder, single episod e, moderate documented in this encounter Care Teams Hammerer Relationship Specialty Start Date End Date None, Bfp PCP - General 03/02/99 04/12/12 documented as of this encounter
--- OUTSIDE RECORDS SUMMARY | 2021-12-14 16:32 | XMS_ITS | Encounter Summary ---
:1980 Author Organization [place] Address [facility] [place] [address] Care Team Providers Name Role Phone None, Bfp Primary Care Provider Unavailable Reason for Visit Reason Onset Date Comments Medication Request 02/21/2012 Encounter Details Date Type Department Care Team Description 02/21/2012 Telephone [facility] Edgar Alfredo Ma rk, Medication Request Ashly VÁSQUEZ [address] [place] [address] [place] [address] [address] [place] [phone] (Wo rk) Social History Tobacco Use Types Packs/Day Years Used Date Smoking Tobacco: Every Day Cigarettes 0.5 10 Smokeless Tobacco: Never Alcohol Use Standard Drinks/Week Comments No 0 (1 standard drink = 0.6 oz pure alcoho l) Sex Assigned at Date Recorded Female 01/14/2020 10:57 AM MAINTENANCE PORTER documented as of this encounter Miscellaneous Notes Telephone Encounter - Madonna Cody - 02/21/2012 3:38 PM CST Script was faxed to the [facility]. TENANCE PORTER Telephone Encounter - Edgar Alfredo MD - 02/21/2012 3:26 PM CST 6 tabs ordered TENANCE PORTER Telephone Encounter - Chapis Diaz - 02/21/2012 2:38 PM CST Not on nursing protocol, unable to fill medication. Please fill if appropriate. Chapis Diaz, RN TENANCE PORTER Telephone Encounter - Madonna Cody - 02/21/2012 2:28 PM CST Stephani only has one subutex left and she made an appointment with you for next and wondering if you could refill her prescription until she comes in. She said that its the Cub that is in her file. If any questions she can be reached at [phone]. TENANCE PORTER documented in this encounter Plan of Treatment Upcoming Encounters Date Type Specialty Care Team Description 12/20/2021 Office Visit Wound Care Luis Camara, [place] [address] [place] [address] (Wo rk) 01/21/2022 PRE VISIT Gastroenterology Landon Warren, *-*INCOMIN G RECORDS*-* MD Luis Fernando [address] [place] [phone] (Wo rk) 01/21/2022 Office Visit Gastroenterology Juanis Levi [address] [place] [phone] Luis Fernando Miles MD [address] [place] [address] [phone] documented as of this encounter Visit Diagnoses Diagnosis Opiate dependence (H) - Primary Opioid type dependence, unspecified documented in this encounter Care Teams Renewal Specialist Relationship Specialty Start Date End Date None, Bfp PCP - General 03/02/99 04/12/12 documented as of this encounter
--- OUTSIDE RECORDS SUMMARY | 2021-12-14 16:32 | XMS_ITS | Encounter Summary ---
:1980 Author Organization [place] Address [address] [place] [address] Care Team Providers Name Role Phone Edgar Alfredo MD Primary Care Provider Reason for Visit Reason Onset Date Comments Medication Request 06/30/2012 Encounter Details Date Type Department Care Team Description 06/30/2012 Telephone [facility] Edgar Alfredo Ma rk, Medication Request Ashly VÁSQUEZ 606 [address] [address] [place] [address] [address] [place] [phone] (Wo rk) Social History Tobacco Use Types Packs/Day Years Used Date Smoking Tobacco: Every Day Cigarettes 0.5 10 Smokeless Tobacco: Never Alcohol Use Standard Drinks/Week Comments No 0 (1 standard drink = 0.6 oz pure alcoho l) Sex Assigned at Date Recorded Female 01/14/2020 10:57 AM COUNT ROOM CLERK documented as of this encounter Miscellaneous Notes Telephone Encounter - Madonna Cody - 07/01/2012 11:54 AM CDT Script for subutex was faxed to the [facility] in [place]. Telephone Encounter - Chapis Diaz - 06/30/2012 [...] filled it already. Please call pt at [phone] documented in this encounter Plan of Treatment Upcoming Encounters Date Type Specialty Care Team Description 12/20/2021 Office Visit Wound Care Luis Camara, [place] [address] [place], [place] [address] (Wo rk) 01/21/2022 PRE VISIT Gastroenterology Landon Warren, *-*WANDAIN G RECORDS*-* MD Luis Fernando [address] [place] [address] (Wo rk) 01/21/2022 Office Visit Gastroenterology Juanis Levi [address] [place] [phone] Luis Fernando Miles MD [address] [place] [phone] documented as of this encounter Visit Diagnoses Not on filedocumented in this encounter Care Teams Naval Architect Relationship Specialty Start Date End Date Edgar Alfredo MD PCP - General Family Practice 04/13/12 08/11/14 [address] [place] [address] documented as of this encounter
--- OUTSIDE RECORDS SUMMARY | 2021-12-14 16:32 | XMS_ITS | Encounter Summary ---
:1980 Author Organization [place] Address [address] [facility] [place] [address] Care Team Providers Name Role Phone Edgar Alfredo MD Primary Care Provider Reason for Visit Reason Onset Date Comments Refill Request 04/30/2012 Encounter Details Date Type Department Care Team Description 04/30/2012 Refill [facility] Nithya Alfredo MD Refill Request [place] [address] [facility] [address] [place] [address] [address] [facility] [address] [place] [address] [phone] Social History Tobacco Use Types Packs/Day Years Used Date Smoking Tobacco: Every Day Cigarettes 0.5 10 Smokeless Tobacco: Never Alcohol Use Standard Drinks/Week Comments No 0 (1 standard drink = 0.6 oz pure alcoho l) Sex Assigned at Date Recorded Female 01/14/2020 10:57 AM LIABILITY CLAIMS ADJUSTER documented as of this encounter Miscellaneous Notes Telephone Encounter - Madonna Cody - 04/30/2012 3:22 PM CDT Script for subutex was faxed to the [facility] in [place]. Telephone Encounter - Sintia Colon - 04/30/2012 [...] be left. Please let her know status at:[phone]. documented in this encounter Plan of Treatment Upcoming Encounters Date Type Specialty Care Team Description 12/20/2021 Office Visit Wound Care Luis Camara DPM [address] [place], [place] [address] (Wo rk) 01/21/2022 PRE VISIT Gastroenterology Landon Warren, *-*HEATHER G RECORDS*-* MD Luis Fernando 516 [facility] 2A [place], [place] [address] (Wo rk) 01/21/2022 Office Visit Gastroenterology Juanis Levi 2450 [place] [phone] Luis Fernando Miles MD 6 [facility] [address] [place] [address] documented as of this encounter Visit Diagnoses Diagnosis Opiate dependence (H) - Primary Opioid type dependence, unspecified documented in this encounter Care Teams Motor Power Connector Relationship Specialty Start Date End Date Edagr Alfredo MD PCP - General Family Practice 04/13/12 [address] [place] [address] [address] [facility] 700 [place] [address] documented as of this encounter
--- OUTSIDE RECORDS SUMMARY | 2021-12-14 16:32 | XMS_ITS | Encounter Summary ---
:1980 Author Organization [place] Address [facility]0 [facility] [place] [address] Care Team Providers Name Role Phone None, Bfp Primary Care Provider Unavailable Reason for Visit Reason Onset Date Comments RECHECK please ask about rec ent PAP date Erroneous encounter-disregard 02/27/2012 Encounter Details Date Type Department Care Team Description 02/27/2012 Office Visit [facility] Edgar Alfredo ERRONEOUS Clinic Ashly Gauthier MD ENCOUNTER--DISREGARD [address] [facility] [address] [facility] (Primary Dx) [address] [place] [address] Social History Tobacco Use Types Packs/Day Years Used Date Smoking Tobacco: Every Day Cigarettes 0.5 10 Smokeless Tobacco: Never Alcohol Use Standard Drinks/Week Comments No 0 (1 standard drink = 0.6 oz pure alcoho l) Sex Assigned at Date Recorded Female 01/14/2020 10:57 AM SECTION LEADER documented as of this encounter Progress Notes Edgar Alfredo MD - 02/27/2012 5:34 PM CST This encounter was opened in error. Please disregard. This encounter was opened in error. Please disregard. ION LEADER documented in this encounter Plan of Treatment Upcoming Encounters Date Type Specialty Care Team Description 12/20/2021 Office Visit Wound Care Luis Camara, [place] [address] [place] [address] (Wo rk) 01/21/2022 PRE VISIT Gastroenterology Landon Warren, *-*WANDAIN G RECORDS*-* MD Luis Fernando [address] [place] [address] (Wo rk) 01/21/2022 Office Visit Gastroenterology Juanis Levi [address] [place] [address] Luis Fernando Miles MD [address] [place] [phone] documented as of this encounter Visit Diagnoses Diagnosis ERRONEOUS ENCOUNTER--DISREGARD - Primary documented in this encounter Care Teams Pre Press Operator Relationship Specialty Start Date End Date None, Bfp PCP - General 03/02/99 04/12/12 documented as of this encounter
--- OUTSIDE RECORDS SUMMARY | 2021-12-14 16:32 | XMS_ITS | Encounter Summary ---
:1980 Author Organization [place] Address [address] [place] [address] Care Team Providers Name Role Phone Edgar Workman MD Primary Care Provider Reason for Visit Reason Onset Date Comments Refill Request 06/29/2012 Encounter Details Date Type Department Care Team Description 06/29/[address] [facility] Nithya Workman MD Refill Request [place] [address] [facility] [address] [place] [address] Suite [facility] [address] [place] [address] [phone] Social History Tobacco Use Types Packs/Day Years Used Date Smoking Tobacco: Every Day Cigarettes 0.5 10 Smokeless Tobacco: Never Alcohol Use Standard Drinks/Week Comments No 0 (1 standard drink = 0.6 oz pure alcoho l) Sex Assigned at Date Recorded Female 01/14/2020 10:57 AM BAG PRINTER documented as of this encounter Miscellaneous Notes [...] would likelinda to call her back at [phone] Chapis Elizalde RN Telephone Encounter - Chapis Elizalde - 06/30/2012 2:20 PM CDT [phone] Telephone Encounter - Marycarmen Spence - 06/30/2012 [...] script could be called in to the [facility] in [place]. Please callher at [phone] when this has been done. Telephone Encounter [...] Visit Wound Care Luis Camara, DPM [address] [place], [place] [address] (Wo rk) 01/21/2022 PRE VISIT Gastroenterology Landon Warren, *-*WANDAIN G RECORDS*-* MD Luis Fernando [address] [place] [address] [address] [place], [place] [phone] (Wo rk) 01/21/2022 Office Visit Gastroenterology Juanis Levi 24[address] [place] [phone] Luis Fernando Miles MD 6 [facility] 2A [place], [place] [address] documented as of this encounter Visit Diagnoses Diagnosis Opiate dependence (H) - Primary Opioid type dependence, unspecified documented in this encounter Care Teams Post Tensioning Ironworker Helper Relationship Specialty Start Date End Date Edgar Workman MD PCP - General Family Practice 04/13/12 08/11/14 [address] [facility] 700 [place] [phone] documented as of this encounter
--- OUTSIDE RECORDS SUMMARY | 2021-12-14 16:32 | XMS_ITS | Encounter Summary ---
:1980 Author Organization [place] Address [address] [facility] [place] [address] Care Team Providers Name Role Phone Edgar Alfredo MD Primary Care Provider Encounter Details Date Type Department Care Team Description 05/18/2012 External Order [facility] Edgar Alfredo, Results Clinic Ashly VÁSQUEZ [address] [place] [address] [place] [address] [address] [place] [phone] (Reinaldo rk) Social History Tobacco Use Types Packs/Day Years Used Date Smoking Tobacco: Every Day Cigarettes 0.5 10 Smokeless Tobacco: Never Alcohol Use Standard Drinks/Week Comments No 0 (1 standard drink = 0.6 oz pure alcoho l) Sex Assigned at Date Recorded Female 01/14/2020 10:57 AM SAND CASTER APPRENTICE documented as of this encounter Plan of Treatment Upcoming Encounters Date Type Specialty Care Team Description 12/20/2021 Office Visit Wound Care Luis Camara, [place] [address] [place], [place] [address] (Wo rk) 01/21/2022 PRE VISIT Gastroenterology Landon Warren, *-*WANDAIN G RECORDS*-* MD Luis Fernando [address] [facility] [address] [place] [address] (Wo rk) 01/21/2022 Office Visit Gastroenterology Juanis Levi [address] [place] [address] Luis Fernando Miles MD [address] [facility] [address] [place] [address] documented as of this encounter Procedures Procedure Name Priority Date/Time Associated Diagnosis Comme nts ABSTRACT PAP (HIM Routine 05/18/2012 Results fo r this EXTERNAL RESULT) procedure a re in the results section . documented in this encounter Results (ABNORMAL) ABSTRACT PAP-NO CHARGE (05/18/2012) Narrative MISYS - 05/18/2012 Pt reports Pap done at [facility] in [place], results abnormal, recheck one year. ??Pt Reported GIOVANNA Letter Sent Patient Reported LAB - HIM EXTERNAL RESULT Performing Organization Address City/State/ZIP Code Phon e Number MISYS documented in this encounter Visit Diagnoses Not on filedocumented in this encounter Care Teams Commercial Food Instructor Relationship Specialty Start Date End Date Edgar Alfredo MD PCP - General Family Practice 04/13/12 08/11/14 [address] [facility] 700 [place] [address] documented as of this encounter
--- OUTSIDE RECORDS SUMMARY | 2021-12-14 16:32 | XMS_ITS | Encounter Summary ---
:1980 Author Organization [place] Address 2450 [facility] [place] [address] Care Team Providers Name Role Phone None, Bfp Primary Care Provider Unavailable Reason for Visit Reason Comments RECHECK PAP date Erroneous encounter-disregard Encounter Details Date Type Department Care Team Description 03/31/[address] [facility] Edgar Alfredo ERRONEOUS Clinic Ashly Gauthier MD ENCOUNTER--DISREGARD [address] [place] [address] [place] [address] [place] (Primary Dx) [address] [place] [address] Social History Tobacco Use Types Packs/Day Years Used Date Smoking Tobacco: Every Day Cigarettes 0.5 10 Smokeless Tobacco: Never Alcohol Use Standard Drinks/Week Comments No 0 (1 standard drink = 0.6 oz pure alcoho l) Sex Assigned at Date Recorded Female 01/14/2020 10:57 AM MANAGER OF DIGITAL documented as of this encounter Progress Notes Madonna Cody - 04/03/2012 1:26 PM CST Appt cancelled GER OF DIGITAL documented in this encounter Plan of Treatment Upcoming Encounters Date Type Specialty Care Team Description 12/20/2021 Office Visit Wound Care Luis Camara, [place] [address] [place], [place] [address] (Wo rk) 01/21/2022 PRE VISIT Gastroenterology Landon Warren, *-*WANDAIN G RECORDS*-* MD Luis Fernando [address] [address] (Wo rk) 01/21/2022 Office Visit Gastroenterology Juanis Levi [address] [place] [address] Luis Fernando Miles MD [address] [place] [address] documented as of this encounter Visit Diagnoses Diagnosis ERRONEOUS ENCOUNTER--DISREGARD - Primary documented in this encounter Care Teams Dean Of Women Relationship Specialty Start Date End Date None, Bfp PCP - General 03/02/99 04/12/12 documented as of this encounter
--- OUTSIDE RECORDS SUMMARY | 2021-12-14 16:32 | XMS_ITS | Encounter Summary ---
:1980 Author Organization [place] Address 2450 [facility] [place] [address] Care Team Providers Name Role Phone None, Bfp Primary Care Provider Unavailable Reason for Visit Reason Comments Recheck Medication please ask about recent PAP date- PCP patient needs LDL goal noted Encounter Details Date Type Department Care Team Description 10/24/2011 Office Visit [facility] Edgar Alfredo (H) Clinic Ashly Gauthier MD (Primary Dx) [address] [facility] [address] [facility] [address] [place] [phone] Social History Tobacco Use Types Packs/Day Years Used Date Smoking Tobacco: Every Day Cigarettes 0.5 10 Smokeless Tobacco: Never Alcohol Use Standard Drinks/Week Comments No 0 (1 standard drink = 0.6 oz pure alcoho l) Sex Assigned at Date Recorded Female 01/14/2020 10:57 AM CLEARANCE 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 documented as of this encounter Last [...] to receive sub maintenance [facility] and was on 24 mg Subutex daily [...] Script for suboxone was faxed to the [facility] >> BRYNN HAMMOND FriOct 24, 2011 [...] Wound Care Luis Camara, [place] [address] [place] [address] (Wo rk) 01/21/2022 PRE VISIT Gastroenterology Landon Warren, *-*WANADIN G RECORDS*-* MD Luis Fernando [address] [place] [address] (Wo rk) 01/21/2022 Office Visit Gastroenterology Juanis Levi 2450 [place] [phone] Luis Fernando Miles MD [address] [place] [address] documented as of this encounter Visit Diagnoses Diagnosis Opiate dependence (H) - Primary Opioid type dependence, unspecified documented in this encounter Care Teams Shop Helper Relationship Specialty Start Date End Date None, Bfp PCP - General 03/02/99 04/12/12 documented as of this encounter
--- OUTSIDE RECORDS SUMMARY | 2021-12-14 16:32 | XMS_ITS | Encounter Summary ---
:1980 Author Organization [place] Address [address] [facility] [address] Care Team Providers Name Role Phone None, Bfp Primary Care Provider Unavailable Reason for Visit Reason Onset Date Comments Refill Request 02/04/2012 Encounter Details Date Type Department Care Team Description 02/04/2012 Refill [facility] Nithya Carbone MD Refill Request [place] [address] [place] [address] [place] [address] [phone] [place] [address] [phone] Social History Tobacco Use Types Packs/Day Years Used Date Smoking Tobacco: Every Day Cigarettes 0.5 10 Smokeless Tobacco: Never Alcohol Use Standard Drinks/Week Comments No 0 (1 standard drink = 0.6 oz pure alcoho l) Sex Assigned at Date Recorded Female 01/14/2020 10:57 AM SUPERVISOR SHAVING AND 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 Tried to call the number listed below, mailbox full. Sintia Colon RN RVIS[employer] SHAVING [employer] SPLITTING Telephone Encounter - Tigist Fraga - 02/05/2012 12:41 PM CST Pt calling re rx, informed pt of refill, pt has appt tomorrow 02-06-12, pt would like to use [facility], , fax [phone]. RVISOR SHAVING AND SPLITTING Telephone Encounter - Edgar Carbone MD - 02/05/2012 12:17 PM CST Refilled Needs appointment Need pharm # RVISOR SHAVING [employer] SPLITTING Telephone Encounter - Victoria Grant - 02/05/2012 10:06 AM CST Pt requesting we send script to [facility] in [place] off [address]. Please call pt at [phone] with any additional concerns/questions. Pt has been out of medication for 2 days. RVISOR SHAVING [employer] SPLITTING Telephone Encounter - Chapis Diaz - 02/04/2012 2:52 PM CST Not on nursing protocol, unable to fill medication. Please fill if appropriate. Need pharmacy info-dr carbone not in office the rest of today or tomorrow. Chapis Diaz RN RVIS[employer] SHAVING [employer] SPLITTING Telephone Encounter - April Mccauley - 02/04/2012 2:21 PM CST Patient called in requesting a refill on her SUBUTEX prescription, patient can be reached via voicemail at phone number [phone] (home phone is voicemail only, please leave detailed voicemail here for pt to return call). RVISOR SHAVING AND SPLITTING documented in this encounter Plan of Treatment Upcoming Encounters Date Type Specialty Care Team Description 12/20/2021 Office Visit Wound Care Luis Camara, [place] [address] [place] [address] (Wo rk) 01/21/2022 PRE VISIT Gastroenterology Landon Warren, *-*HEATHER G RECORDS*-* MD Luis Fernando [address] [facility] [address] [place] [address] (Wo rk) 01/21/2022 Office Visit Gastroenterology Juanis Levi [address] [place] [address] Luis Fernando Miles MD [address] [place] [address] documented as of this encounter Visit Diagnoses Diagnosis Opiate dependence (H) - Primary Opioid type dependence, unspecified documented in this encounter Care Teams Jet Aircraft Servicer Relationship Specialty Start Date End Date None, Bfp PCP - General 03/02/99 04/12/12 documented as of this encounter
--- OUTSIDE RECORDS SUMMARY | 2021-12-14 16:32 | XMS_ITS | Encounter Summary ---
:1980 Author Organization [place] Address 2450 [facility] [place] [address] Care Team Providers Name Role Phone Edgar Alfredo MD Primary Care Provider Reason for Visit Reason Onset Date Comments Nurse Advice Line 06/09/2012 Encounter Details Date Type Department Care Team Description 06/09/2012 Telephone [facility] Edgar Alfredo Ma rk, Nurse Advice Line Ashly VÁSQUEZ 606 24[address] [facility] [address] [place] [address] [address] [place] [address] (Wo rk) Social History Tobacco Use Types Packs/Day Years Used Date Smoking Tobacco: Every Day Cigarettes 0.5 10 Smokeless Tobacco: Never Alcohol Use Standard Drinks/Week Comments No 0 (1 standard drink = 0.6 oz pure alcoho l) Sex Assigned at Date Recorded Female 01/14/2020 10:57 AM DIGITAL MEDIA DIRECTOR documented as of this encounter Miscellaneous Notes Telephone Encounter - Chapis Diaz - 07/02/2012 3:09 PM CDT Old encounter closed Chapis Diaz RN Telephone Encounter - Chapis Diaz - 06/09/2012 2:38 PM CDT Plan doesn't cover subutex will call for pa [phone] Number [phone] [place]/info over phone will fax us decision Pending pa--called in already today--they will fax us today Their decision Chapis Diaz RN documented in this encounter Plan of Treatment Upcoming Encounters Date Type Specialty Care Team Description 12/20/2021 Office Visit Wound Care Luis Camara, [place] [address] [place], [place] [phone] (Wo rk) 01/21/2022 PRE VISIT Gastroenterology Landon Warren, *-*WANDAIN G RECORDS*-* MD Luis Fernando [address] [place] [phone] (Wo rk) 01/21/2022 Office Visit Gastroenterology Juanis Levi 2450 [place] [phone] Luis Fernando Miles MD [address] [place] [address] documented as of this encounter Visit Diagnoses Not on filedocumented in this encounter Care Teams Gold Miner Blasting Relationship Specialty Start Date End Date Edgar Alfredo MD PCP - General Family Practice 04/13/12 08/11/14 606 24[address] [facility] 700 [place] [phone] documented as of this encounter
--- OUTSIDE RECORDS SUMMARY | 2021-12-14 16:32 | XMS_ITS | Encounter Summary ---
:1980 Author Organization [place] Address [address] [facility] [place] [address] Care Team Providers Name Role Phone Edgar Alfredo MD Primary Care Provider Encounter Details Date Type Department Care Team Description 07/20/2012 Telephone [facility] Nithya Alfredo MD [place] [address] [place] [address] [place] [address] [phone] [place] [address] 4-[address] [phone] Social History Tobacco Use Types Packs/Day Years Used Date Smoking Tobacco: Every Day Cigarettes 0.5 10 Smokeless Tobacco: Never Alcohol Use Standard Drinks/Week Comments No 0 (1 standard drink = 0.6 oz pure alcoho l) Sex Assigned at Date Recorded Female 01/14/2020 10:57 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 Alfredo's game plan regarding suboxone. Patient is having now. Call transferred to Dr. Alfredo. Sintia Colon RN documented in this encounter Plan of Treatment Upcoming Encounters Date Type Specialty Care Team Description 12/20/2021 Office Visit Wound Care Luis Camara, [place] 909 [place] [address] (Wo rk) 01/21/2022 PRE VISIT Gastroenterology Landon Warren, *-*WANDAIN G RECORDS*-* MD Luis Fernando 516 [facility] [address] [place] [address] (Wo rk) 01/21/2022 Office Visit Gastroenterology Juanis Levi 2450 [place] [address] Luis Fernando Miles MD 6 [facility] [address] [place] [address], [place] [address] documented as of this encounter Visit Diagnoses Not on filedocumented in this encounter Care Teams Enrollment Services Vice President Relationship Specialty Start Date End Date Edgar Alfredo MD PCP - General Family Practice 04/13/12 08/11/14 606 24[address] [facility] [address] [place] [address] documented as of this encounter
--- OUTSIDE RECORDS SUMMARY | 2021-12-14 16:32 | XMS_ITS | Encounter Summary ---
:1980 Author Organization [place] Address 24[address] [facility] [place] [address] Care Team Providers Name Role Phone None, Bfp Primary Care Provider Unavailable Reason for Visit Reason Onset Date Comments Refill Request 03/31/2012 Encounter Details Date Type Department Care Team Description 03/31/[address] [facility] Nithya Alfredo MD Refill Request [place] [address] [place] [address] [address] [place] [address] [address] [phone] [place] [address] [phone] Social History Tobacco Use Types Packs/Day Years Used Date Smoking Tobacco: Every Day Cigarettes 0.5 10 Smokeless Tobacco: Never Alcohol Use Standard Drinks/Week Comments No 0 (1 standard drink = 0.6 oz pure alcoho l) Sex Assigned at Date Recorded Female 01/14/2020 10:57 AM DIRECTOR TRADING documented as of this encounter Miscellaneous Notes Telephone Encounter - Madonna Cody - 03/31/2012 1:12 PM CST Script for subutex was faxed to the [facility] in [place]. CTOR TRADING Telephone Encounter - Edgar Alfredo MD - 03/31/2012 12:25 PM CST advised appointment in 1 week Will reduce Subutex to 6 mg CTOR TRADING Telephone Encounter - Abel Sal - 03/31/2012 12:20 PM CST Pt missed appt this am. Couldn't get a ride. Asked Dr. Alfredo about situation.Pt was informed that could still see her for her Subutex refill if she can get here w/i the hour. She said it would take over 1-1/2 hours to get here from [place]. Pt was informed the best that can be done is to get a note to Dr. Alfredo and he can call you. Pt's cell#:[phone] CTOR TRADING documented in this encounter Plan of Treatment Upcoming Encounters Date Type Specialty Care Team Description 12/20/2021 Office Visit Wound Care Luis Camara, [place] [address] [place] [address] (Wo rk) 01/21/2022 PRE VISIT Gastroenterology Landon Warren, *-*WANDAIN G RECORDS*-* MD Luis Fernando [address] [place] [address] (Wo rk) 01/21/2022 Office Visit Gastroenterology Juanis Levi 2450 [place] [phone] Luis Fernando Miles MD [address] [place] [phone] documented as of this encounter Visit Diagnoses Diagnosis complicated by chemical depend ency, antepartum - Primary Drug dependence, antepartum documented in this encounter Care Teams Tunnel Drier Operator Relationship Specialty Start Date End Date None, Bfp PCP - General 03/02/99 04/12/12 documented as of this encounter
--- OUTSIDE RECORDS SUMMARY | 2021-12-14 16:32 | XMS_ITS | Encounter Summary ---
:1980 Author Organization [place] Address 2450 [place] [address] Care Team Providers Name Role Phone Edgar Alfredo MD Primary Care Provider Reason for Visit Reason Comments Recheck Medication Encounter Details Date Type Department Care Team Description 06/09/2012 Office Visit [facility] Edgar Alfredo Opiate de pendence (H) Clinic Ashly Gauthier MD (Primary Dx) [address] [facility] [address] [facility] [address] [place] [phone] Social History Tobacco Use Types Packs/Day Years Used Date Smoking Tobacco: Every Day Cigarettes 0.5 10 Smokeless Tobacco: Never Alcohol Use Standard Drinks/Week Comments No 0 (1 standard drink = 0.6 oz pure alcoho l) Sex Assigned at Date Recorded Female 01/14/2020 10:57 AM CAMERA CONTROL OPERATOR documented as of this encounter Last [...] Body Mass Index 26.22 04/10/2012 4:20 PM CAMERA CONTROL OPERATOR documented in this encounter Progress Notes [...] Script for subutex was faxed to the [facility]. >> ROSALINE VAZQUEZ FriJun 09, 2012 11:29 AM Please abstract the following data from this visit with this patient into the appropriate field in Epic: Pap smear done on this date: 05/30 (approximately), by this group: [facility], results were Abnormal, will recheck in [...] completed using cuff size: regular Rosaline Vazquez PHYSICIAN EXTENDER documented in this encounter Plan of Treatment Upcoming Encounters Date Type Specialty Care Team Description 12/20/2021 Office Visit Wound Care Luis Camara, DPM 909 [place], [place] [address] (Wo rk) 01/21/2022 PRE VISIT Gastroenterology Landon Warren, *-*WANDAIN G RECORDS*-* MD Luis Fernando 516 [facility] [address] [place], [place] [address] (Wo rk) 01/21/2022 Office Visit Gastroenterology Juanis Levi 2450 [place] [phone] Luis Fernando Miles MD 516 [facility] [address] [place] [address] documented as of this encounter Visit Diagnoses Diagnosis Opiate dependence (H) - Primary Opioid type dependence, unspecified documented in this encounter Care Teams Automobile Mechanic Motor Relationship Specialty Start Date End Date Edgar Alfredo MD PCP - General Family Practice 04/13/12 08/11/14 [address] [facility] [place] 700 [place] [phone] documented as of this encounter
--- OUTSIDE RECORDS SUMMARY | 2021-12-14 16:32 | XMS_ITS | Encounter Summary ---
:1980 Author Organization [place] Address [facility] [place] [address] Care Team Providers Name Role Phone Edgar Alfredo MD Primary Care Provider Reason for Visit Reason Onset Date Comments RECHECK PAP Date Erroneous encounter-disregard 05/16/2012 Encounter Details Date Type Department Care Team Description 05/15/2012 Office Visit [facility] Edgar Alfredo ERRONEOUS Clinic Ashly Gauthier MD ENCOUNTER--DISREGARD 606 24th [facility] 606 [facility] (Primary Dx) [address] [place] [phone] Social History Tobacco Use Types Packs/Day Years Used Date Smoking Tobacco: Every Day Cigarettes 0.5 10 Smokeless Tobacco: Never Alcohol Use Standard Drinks/Week Comments No 0 (1 standard drink = 0.6 oz pure alcoho l) Sex Assigned at Date Recorded Female 01/14/2020 10:57 AM SCREW MACHINE OPERATOR SWISS TYPE documented as of this encounter Progress Notes Edgar Alfredo MD - 05/16/2012 8:37 AM CDT This encounter was opened in error. Please disregard. documented in this encounter Plan of Treatment Upcoming Encounters Date Type Specialty Care Team Description 12/20/2021 Office Visit Wound Care Luis Camara, DPM 909 [place] [address] (Wo rk) 01/21/2022 PRE VISIT Gastroenterology Landon Warren, *-*INCOMIN G RECORDS*-* MD Luis Fernando [address] [place] [address] [address] [place] [address] (Wo rk) 01/21/2022 Office Visit Gastroenterology Juanis Levi [address] [place] [address] Luis Fernando Miles MD [address] [id number] documented as of this encounter Visit Diagnoses Diagnosis ERRONEOUS ENCOUNTER--DISREGARD - Primary documented in this encounter Care Teams Grade Foreman Relationship Specialty Start Date End Date Edgar Alfredo MD PCP - General Family Practice 04/13/12 08/11/14 606 24[address] [facility] 700 [place] [address] documented as of this encounter
--- OUTSIDE RECORDS SUMMARY | 2021-12-14 16:32 | XMS_ITS | Encounter Summary ---
:1980 Author Organization [place] Address 2450 [place] [address] Care Team Providers Name Role Phone None, Bfp Primary Care Provider Unavailable Reason for Visit Reason Onset Date Comments Refill Request 01/20/2012 Encounter Details Date Type Department Care Team Description 01/20/2012 Refill [facility] Nithya Alfredo MD Refill Request [address] [place] [address] [address] [phone] [place] [address] 4-[address] [phone] Social History Tobacco Use Types Packs/Day Years Used Date Smoking Tobacco: Every Day Cigarettes 0.5 10 Smokeless Tobacco: Never Alcohol Use Standard Drinks/Week Comments No 0 (1 standard drink = 0.6 oz pure alcoho l) Sex Assigned at Date Recorded Female 01/14/2020 10:57 AM OPEN CLAIMS 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 documented as of this encounter Miscellaneous Notes Telephone Encounter - Marycarmen Spence - 01/20/2012 5:09 PM CST Scripts faxed. Marycarmen Spence RN CLAIMS 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 Telephone Encounter - Violeta Soto - 01/20/2012 4:56 PM CST Patient called - Please refill prescription to the [facility]. Their number is [phone]. CLAIMS 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 Telephone Encounter - Sintia Colon - 01/20/2012 4:01 PM CST There are two different [facility] in [place]- patient was called to clarify which one she wants the medication sent to. Patient mother picked up the phone and stated she didn't know her number but she would try to contact patient to have her call the clinic. Until we hear from patient, the scripts are sitting in the top drawer of [employer]. Sintia Colon RN CLAIMS 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 Telephone Encounter - Edgar Alfredo MD - 01/20/2012 3:56 PM CST Ordered Need pharm info In fax box CLAIMS 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 Telephone Encounter - Tigist Fraga - 01/20/2012 3:43 PM CST Pt calling, states she is out of subutex, 8 mg and 2 mg as was only given 15 days worth at last refill. Before ending conversation, pt also stated she was out of Wellbutrin. [facility] [place] Caller states she can be reached or messages left at [phone] which is her mother's phone number. Aware Dr Alfredo not scheduled in clinic this afternoon. CLAIMS 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 documented in this encounter Plan of Treatment Upcoming Encounters Date Type Specialty Care Team Description 12/20/2021 Office Visit Wound Care Luis Camara DPM [address] [place] [address] (Wo rk) 01/21/2022 PRE VISIT Gastroenterology Landon Warren, *-*WANDAIN G RECORDS*-* MD Luis Fernando [address] [address] (Wo rk) 01/21/2022 Office Visit Gastroenterology Juanis Levi 2450 [place] [phone] Luis Fernando Miles MD 6 [facility] [address] [place] [address] documented as of this encounter Visit Diagnoses Diagnosis Opiate dependence (H) - Primary Opioid type dependence, unspecified Moderate major depression (H) Major depressive disorder, single episod e, moderate documented in this encounter Care Teams Education Program Specialist Relationship Specialty Start Date End Date None, Bfp PCP - General 03/02/99 04/12/12 documented as of this encounter
--- OUTSIDE RECORDS SUMMARY | 2021-12-14 16:32 | XMS_ITS | Encounter Summary ---
:1980 Author Organization [place] Address [address] [facility] [place] [address] Care Team Providers Name Role Phone None, Bfp Primary Care Provider Unavailable Reason for Visit Reason Onset Date Comments Refill Request 01/21/2012 Encounter Details Date Type Department Care Team Description 01/21/2012 Refill [facility] Nithya Alfredo MD Refill Request [address] [place] [address] [address] [address] [place] [address] 4-[address] [phone] Social History Tobacco Use Types Packs/Day Years Used Date Smoking Tobacco: Every Day Cigarettes 0.5 10 Smokeless Tobacco: Never Alcohol Use Standard Drinks/Week Comments No 0 (1 standard drink = 0.6 oz pure alcoho l) Sex Assigned at Date Recorded Female 01/14/2020 10:57 AM BINDER STRIPPER HAND documented as of this encounter Miscellaneous Notes Telephone Encounter - Sintia Colon - 01/21/2012 1:53 PM CST Please see telephone encounter from 01/21/2012. PA is being submitted to [facility], as [facility] has denied PA its not the patient's insurance. Sintia Colon RN ER STRIPPER HAND Telephone Encounter - Sintia Colon - 01/21/2012 10:07 AM CST PA is being requesting for subutex. Patient was on suboxone, is now so needs to be on subutex. PA faxed. Sintia Colon, RN ER STRIPPER HAND documented in this encounter Plan of Treatment Upcoming Encounters Date Type Specialty Care Team Description 12/20/2021 Office Visit Wound Care Luis Camara, [place] [address] [place] [address] (Wo rk) 01/21/2022 PRE VISIT Gastroenterology Landon Warren, *-*HEATHER G RECORDS*-* MD Luis Fernando [address] [place] [phone] (Wo rk) 01/21/2022 Office Visit Gastroenterology Juanis Levi [address] [place] [phone] Luis Fernando Miles MD [address] [place] [phone] documented as of this encounter Visit Diagnoses Not on filedocumented in this encounter Care Teams Pallet Sorter Relationship Specialty Start Date End Date None, Bfp PCP - General 03/02/99 04/12/12 documented as of this encounter
--- OUTSIDE RECORDS SUMMARY | 2021-12-14 16:32 | XMS_ITS | Encounter Summary ---
:1980 Author Organization [place] Address [address] [place] [address] Care Team Providers Name Role Phone None, Bfp Primary Care Provider Unavailable Reason for Visit Reason Comments Recheck Medication Encounter Details Date Type Department Care Team Description 01/02/2012 Office Visit [facility] Edgar Alfredo de pendence (H) (Primary Dx); Clinic Ashly Gauthier MD complicated by chemical depend ency, antepartum (H); [address] [facility] Vitamin B12 deficiency (non anaemic) [address] [place] [phone] Social History Tobacco Use Types Packs/Day Years Used Date Smoking Tobacco: Every Day Cigarettes 0.5 10 Smokeless Tobacco: Never Alcohol Use Standard Drinks/Week Comments No 0 (1 standard drink = 0.6 oz pure alcoho l) Sex Assigned at Date Recorded Female 01/14/2020 10:57 AM COMMUNITY DEVELOPMENT WORKER documented as of this encounter Last Filed Vital Signs Vital Sign Reading Time Taken Comments Blood Pressure 108/58 01/02/2012 3:34 PM COMMUNITY DEVELOPMENT WORKER Pulse 109 01/02/2012 3:34 PM COMMUNITY DEVELOPMENT WORKER Temperature - - Respiratory Rate - - Oxygen Saturation 99% 01/02/2012 3:34 PM COMMUNITY DEVELOPMENT WORKER Inhaled Oxygen Concentration - - Weight 73.5 kg (162 lb) 01/02/2012 3:34 PM COMMUNITY DEVELOPMENT WORKER Height 166.4 cm (5' 5.5) 01/02/2012 3:34 PM COMMUNITY DEVELOPMENT WORKER Body Mass Index 26.55 01/02/2012 3:34 PM COMMUNITY DEVELOPMENT WORKER documented in this encounter Progress Notes [...] relapse, and establishing a solid recovery program. UNITY DEVELOPMENT WORKER documented in this encounter Nursing Notes 01/02/2012 3:45 PM CST >> FERN MARINELLI Zoe Jan 02, 2012 4:02 PM Script for subutex 8mg and subutex 2mg was faxed to the [facility] >> GIOVANNI HART Zoe Jan 02, [...] Wound Care [place] Luis Lex, DPM [address] [place] [address] (Wo rk) 01/21/2022 PRE VISIT Gastroenterology Landon [place], *-*HEATHER G RECORDS*-* MD Luis Fernando [address] [facility] 2[address] [place] [address] (Wo rk) 01/21/2022 Office Visit Gastroenterology Juanis Levi [address] [place] [address] Luis Fernando Miles MD [address] [phone] documented as of this encounter Procedures Procedure Name Priority Date/Time Associated Diagnosis Comme nts DRUG ABUSE SCREEN 6 Routine 01/02/2012 4:01 PM Opiate dependen ce Results for this CHEM DEP URINE COMMUNITY DEVELOPMENT WORKER (H) procedure are in ([facility]) the results section. documented in this encounter Results Drug abuse screen 6 urine (chem dep) ([facility]) (01/02/2012 4:01 PM COMMUNITY DEVELOPMENT WORKER) Component Value Ref Test Analysis Performed At [facility] gist Range Method Time Signature Amphetamine Qual Negative NEG [facility] Urine Cutoff for a negative amphetamine is 500 ng/mL or less. [facility] Barbiturates Qual Negative NEG [facility] Urine Cutoff for a negative barbiturate is 200 ng/mL or less. [facility] Benzodiazepine Negative NEG [facility] Qual Urine Cutoff for a negative benzodiazepine is 200 ng/mL or less . [facility] Cannabinoids Qual Negative NEG [facility] Urine Cutoff for a negative cannabinoid is 50 ng/mL or less. [facility] Cocaine Qual Negative NEG [facility] Urine Cutoff for a negative cocaine is 300 ng/mL or less. [facility] Ethanol Qual Negative NEG [facility] Urine Cutoff for a negative urine ethanol is 50 mg/dL or less. [facility] Opiates Negative NEG [facility] Qualitative Urine Cutoff for a negative opiate is 300 ng/mL or less. [facility] Specimen Anatomical Collection Method Collection Time Receive d Time (Source) Location / / Volume Laterality Urine specimen 01/02/2012 4:01 PM 012 4:02 (specimen) COMMUNITY DEVELOPMENT WORKER PM COMMUNITY DEVELOPMENT WORKER Edgar Alfredo MD LAB - URINE ORDERABLES Performing Organization Address City/State/ZIP Code Phon e Number [facility] [address] [place] [address] [facility] documented in this encounter Visit Diagnoses Diagnosis Opiate dependence (H) - Primary Opioid type dependence, unspecified complicated by chemical depend ency, antepartum Drug dependence, antepartum Vitamin B12 deficiency (non anaemic) Other B-complex deficiencies documented in this encounter Care Teams Burring Machine Operator Relationship Specialty Start Date End Date None, Bfp PCP - General 03/02/99 04/12/12 documented as of this encounter
--- OUTSIDE RECORDS SUMMARY | 2021-12-14 16:32 | XMS_ITS | Encounter Summary ---
:1980 Author Organization [place] Address [facility]0 [facility] [place] [address] Care Team Providers Name Role Phone None, Bfp Primary Care Provider Unavailable Reason for Visit Reason Onset Date Comments RECHECK please ask about rec ent PAP date Erroneous encounter-disregard 02/07/2012 Encounter Details Date Type Department Care Team Description 02/06/[address] [facility] Edgar Alfredo ERRONEOUS Clinic Ashly Gauthier MD ENCOUNTER--DISREGARD [address] [facility] [address] [facility] (Primary Dx) [address] [place] [phone] Social History Tobacco Use Types Packs/Day Years Used Date Smoking Tobacco: Every Day Cigarettes 0.5 10 Smokeless Tobacco: Never Alcohol Use Standard Drinks/Week Comments No 0 (1 standard drink = 0.6 oz pure alcoho l) Sex Assigned at Date Recorded Female 01/14/2020 10:57 AM RESIDENTIAL REAL ESTATE AGENT documented as of this encounter Progress Notes Edgar Alfredo MD - 02/07/2012 9:51 PM CST This encounter was opened in error. Please disregard. DENTIAL REAL ESTATE AGENT documented in this encounter Plan of Treatment Upcoming Encounters Date Type Specialty Care Team Description 12/20/2021 Office Visit Wound Care Luis Camara DPM [address] [place], [place] [address] (Wo rk) 01/21/2022 PRE VISIT Gastroenterology Landon [place], *-*WANDAIN G RECORDS*-* MD Luis Fernando [address] [phone] (Wo rk) 01/21/2022 Office Visit Gastroenterology Juanis Levi [address] [place] [phone] Luis Fernando Miles MD [address] [phone] documented as of this encounter Visit Diagnoses Diagnosis ERRONEOUS ENCOUNTER--DISREGARD - Primary documented in this encounter Care Teams Machinist Wood Relationship Specialty Start Date End Date None, Bfp PCP - General 03/02/99 04/12/12 documented as of this encounter
--- OUTSIDE RECORDS SUMMARY | 2021-12-14 16:32 | XMS_ITS | Encounter Summary ---
:1980 Author Organization [place] Address [facility] [place] [address] Care Team Providers Name Role Phone Edgar Alfredo MD Primary Care Provider Reason for Visit Reason Onset Date Comments Prior Authorization 05/20/2012 suboxone Encounter Details Date Type Department Care Team Description 05/20/2012 Telephone [facility] Edgar Alfredo Prior [facility] Ashly Gauthier MD (suboxone) [address] [facility] [address] [place] [address] [address] [place] [phone] Social History Tobacco Use Types Packs/Day Years Used Date Smoking Tobacco: Every Day Cigarettes 0.5 10 Smokeless Tobacco: Never Alcohol Use Standard Drinks/Week Comments No 0 (1 standard drink = 0.6 oz pure alcoho l) Sex Assigned at Date Recorded Female 01/14/2020 10:57 AM LADLER documented as of this encounter Miscellaneous Notes [...] Visit Wound Care Luis Camara, [place] [address] [place], [place] [phone] (Wo rk) 01/21/2022 PRE VISIT Gastroenterology Landon [place], *-*INCOMIN G RECORDS*-* MD Luis Fernando [address] [place] [address] [address] [place] [address] (Wo rk) 01/21/2022 Office Visit Gastroenterology Juanis Levi [address] [place] [phone] Luis Fernando Mlies MD [address] [phone] documented as of this encounter Visit Diagnoses Not on filedocumented in this encounter Care Teams Washing And Screening Plant Supervisor Relationship Specialty Start Date End Date Edgar Alfredo MD PCP - General Family Practice 04/13/12 08/11/[address] [place] [phone] documented as of this encounter
--- OUTSIDE RECORDS SUMMARY | 2021-12-14 16:32 | XMS_ITS | Encounter Summary ---
:1980 Author Organization [place] Address [address] [facility] [place] [address] Care Team Providers Name Role Phone Edgar Alfredo MD Primary Care Provider Reason for Visit Reason Onset Date Comments Refill Request 04/24/2012 Encounter Details Date Type Department Care Team Description 04/24/2012 Refill [facility] Nithya Alfredo MD Refill Request [place] [address] [facility] [address] [place] [address] Suite [facility] [address] [place] [address] [phone] Social History Tobacco Use Types Packs/Day Years Used Date Smoking Tobacco: Every Day Cigarettes 0.5 10 Smokeless Tobacco: Never Alcohol Use Standard Drinks/Week Comments No 0 (1 standard drink = 0.6 oz pure alcoho l) Sex Assigned at Date Recorded Female 01/14/2020 10:57 AM FIELD 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S 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 Marycarmen Spence RN D 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S DIRECTOR Telephone Encounter - Tigist Fraga - 04/24/2012 2:21 PM CST Pt ([phone]) calling, requesting a refill for wellbutrin for today, states she is out. [facility] [place] as listed in [facility]. D 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S DIRECTOR documented in this encounter Plan of Treatment Upcoming Encounters Date Type Specialty Care Team Description 12/20/2021 Office Visit Wound Care Luis Camara, [place] [address] [place] [address] (Wo rk) 01/21/2022 PRE VISIT Gastroenterology Landon [place], *-*HEATHER G RECORDS*-* MD Luis Fernando [address] [place] [phone] (Wo rk) 01/21/2022 Office Visit Gastroenterology Juanis Levi [address] [place] [phone] Luis Fernando Miles MD [address] [place] [phone] documented as of this encounter Visit Diagnoses Diagnosis Moderate major depression (H) - Primary Major depressive disorder, single episod e, moderate documented in this encounter Care Teams Patient Registration Supervisor Relationship Specialty Start Date End Date Edgar Alfredo MD PCP - General Family Practice 04/13/12 08/11/[address] [phone] documented as of this encounter
--- OUTSIDE RECORDS SUMMARY | 2021-12-14 16:32 | XMS_ITS | Encounter Summary ---
:1980 Author Organization [place] Address [address] [place] [address] Care Team Providers Name Role Phone None, Bfp Primary Care Provider Unavailable Reason for Visit Reason Comments RECHECK Encounter Details Date Type Department Care Team Description 12/05/2011 Office Visit [facility] Edgar Alfredo (H) Clinic Ashly Gauthier MD (Primary Dx) [address] [facility] [address] [place] [address] [address] [place] [phone] Social History Tobacco Use Types Packs/Day Years Used Date Smoking Tobacco: Every Day Cigarettes 0.5 10 Smokeless Tobacco: Never Alcohol Use Standard Drinks/Week Comments No 0 (1 standard drink = 0.6 oz pure alcoho l) Sex Assigned at Date Recorded Female 01/14/2020 10:57 AM BOOM BOSS documented as of this encounter Last Filed [...] Script for suboxone was faxed to the [facility] >> GIOVANNI HART [facility] Dec 05, 2011 1:45 PM Patient presents with: RECHECK Initial BP 144/58 Pulse 90 Ht 5' 5.5 (1.664 m) Wt 171 lb (77.565 kg) BMI 28.02 kg/m2 WgV129% Estimated Body mass index is 28.02 kg/(m^2) as calculated from the following: Height as of this encounter: 5' 5.5(1.664 m). Weight as of this encounter: 171 lb(77.565 kg).. BP completed using cuff size: regular Giovanni Hart MA documented in this encounter Plan of Treatment Upcoming Encounters Date Type Specialty Care Team Description 12/20/2021 Office Visit Wound Care Luis Camara, [place] [address] [place] [address] (Wo rk) 01/21/2022 PRE VISIT Gastroenterology Landon [place], *-*HEATHER G RECORDS*-* MD Luis Fernando 6 [facility] 2[address] [place], [place] [address] (Wo rk) 01/21/2022 Office Visit Gastroenterology Juanis Levi [address] [place] [address] Luis Fernando Miles MD [address] [place] [phone] documented as of this encounter Visit Diagnoses Diagnosis Opiate dependence (H) - Primary Opioid type dependence, unspecified documented in this encounter Care Teams Dimension Specification Inspector Relationship Specialty Start Date End Date None, Bfp PCP - General 03/02/99 04/12/12 documented as of this encounter
--- OUTSIDE RECORDS SUMMARY | 2021-12-14 16:32 | XMS_ITS | Encounter Summary ---
:1980 Author Organization [place] Address [address] [place] [address] Care Team Providers Name Role Phone Edgar Alfredo MD Primary Care Provider Reason for Visit Reason Onset Date Comments Call Back 07/14/2012 Encounter Details Date Type Department Care Team Description 07/14/2012 Telephone [facility] Nithya Alfredo MD Call Back [place] 606 [address] [address] [place], [place] Suite [facility] [address] [place] [address] [phone] Social History Tobacco Use Types Packs/Day Years Used Date Smoking Tobacco: Every Day Cigarettes 0.5 10 Smokeless Tobacco: Never Alcohol Use Standard Drinks/Week Comments No 0 (1 standard drink = 0.6 oz pure alcoho l) Sex Assigned at Date Recorded Female 01/14/2020 10:57 AM SURPLUS PROPERTY DISPOSAL AGENT documented as of this encounter Miscellaneous [...] Fraga - 07/14/2012 1:46 PM CDT Pt ([phone]) calling again, states pharmacy would not fill [...] Script for subutex was faxed to the [facility] in [place]. Telephone Encounter - Edgar Alfredo MD - 07/14/2012 10:58 AM CDT Took more than prescribed; now has one left; for breech 07/20/12 Advised 2 mg per day until 07/19/12 Appointment here after 5 Subutex ordered Telephone Encounter - Tigist Fraga - 07/14/2012 9:50 AM CDT Pt ([phone]) calling, states her dosage for subutex was [...] Visit Wound Care Luis Camara DPM [address] [place] [address] (Wo rk) 01/21/2022 PRE VISIT Gastroenterology Landon [place], *-*INCOMIN G RECORDS*-* MD Luis Fernando [address] [place] [address] (Wo rk) 01/21/2022 Office Visit Gastroenterology Juanis Levi [address] [place] [address] Luis Fernando Miles MD [address] [place] [phone] documented as of this encounter Visit Diagnoses Diagnosis Opiate dependence (H) - Primary Opioid type dependence, unspecified documented in this encounter Care Teams Clinician Oncology Relationship Specialty Start Date End Date Edgar Alfredo MD PCP - General Family Practice 04/13/12 08/11/[address] [place] [address] 700 [place] [address] documented as of this encounter
--- OUTSIDE RECORDS SUMMARY | 2021-12-14 16:32 | XMS_ITS | Encounter Summary ---
:1980 Author Organization [place] Address [address] [facility] [place] [address] Care Team Providers Name Role Phone Edgar Alfredo MD Primary Care Provider Reason for Visit Reason Onset Date Comments Refill Request 06/09/2012 Encounter Details Date Type Department Care Team Description 06/09/2012 Refill [facility] Nithya Alfredo MD Refill Request [place] [address] [facility] [address] [place] [address] [address] [address] [place] [address] [phone] Social History Tobacco Use Types Packs/Day Years Used Date Smoking Tobacco: Every Day Cigarettes 0.5 10 Smokeless Tobacco: Never Alcohol Use Standard Drinks/Week Comments No 0 (1 standard drink = 0.6 oz pure alcoho l) Sex Assigned at Date Recorded Female 01/14/2020 10:57 AM SURGERY CONSULTANT documented as of this encounter Miscellaneous [...] verbally okayed 1 month supply, sent to [facility]. Srinath Short Nurse documented in this encounter Plan of Treatment Upcoming Encounters Date Type Specialty Care Team Description 12/20/2021 Office Visit Wound Care Luis Camara, [place] [address] [place], [place] [phone] (Wo rk) 01/21/2022 PRE VISIT Gastroenterology Landon [place], *-*INCOMIN G RECORDS*-* MD Luis Fernando [address] [place] [phone] (Wo rk) 01/21/2022 Office Visit Gastroenterology Juanis Levi [address] [place] [phone] Luis Fernando Miles MD [address] [place] [phone] documented as of this encounter Visit Diagnoses Diagnosis Moderate major depression (H) - Primary Major depressive disorder, single episod e, moderate documented in this encounter Care Teams Development Editor Relationship Specialty Start Date End Date Edgar Alfredo MD PCP - General Family Practice 04/13/12 08/11/14 [address] [facility] S [facility] 700 [place] [phone] documented as of this encounter
--- OUTSIDE RECORDS SUMMARY | 2021-12-14 16:32 | XMS_ITS | Encounter Summary ---
:1980 Author Organization [place] Address [facility] [place] [address] Care Team Providers Name Role Phone Edgar Alfredo MD Primary Care Provider Reason for Visit Reason Onset Date Comments Symptoms 07/22/2012 withdrawal from subo xone Encounter Details Date Type Department Care Team Description 07/22/2012 Telephone [facility] Edgar Alfredo, Sym ptoms (withdrawal Clinic Ashly VÁSQUEZ from suboxone ) [address] [facility] [address] [facility] [address] [place] [phone] (Wo rk) Social History Tobacco Use Types Packs/Day Years Used Date Smoking Tobacco: Every Day Cigarettes 0.5 10 Smokeless Tobacco: Never Alcohol Use Standard Drinks/Week Comments No 0 (1 standard drink = 0.6 oz pure alcoho l) Sex Assigned at Date Recorded Female 01/14/2020 10:57 AM ACCOUNT SERVICES COORDINATOR documented as of this encounter [...] to talk to Dr. Alfredo (pager # [phone]).I did tell patient this plan, who then [...] Visit Wound Care Luis Camara DPM [address] [place], [place] [phone] (Wo rk) 01/21/2022 PRE VISIT Gastroenterology Landon [place], *-*WANDAIN G RECORDS*-* MD Luis Fernando [address] [place] [phone] (Wo rk) 01/21/2022 Office Visit Gastroenterology Juanis Levi [address] [place] [phone] Luis Fernando Miles MD [address] [place] [phone] documented as of this encounter Visit Diagnoses Not on filedocumented in this encounter Care Teams Dent Remover Relationship Specialty Start Date End Date Edgar Alfrdeo MD PCP - General Family Practice 04/13/12 08/11/[address] [facility] 700 [place] [phone] documented as of this encounter
--- OUTSIDE RECORDS SUMMARY | 2021-12-14 16:32 | XMS_ITS | Encounter Summary ---
:1980 Author Organization [place] Address [address] [facility] [place] [address] Care Team Providers Name Role Phone Edgar Alfredo MD Primary Care Provider Reason for Visit Reason Onset Date Comments Refill Request 05/19/2012 Encounter Details Date Type Department Care Team Description 05/19/2012 Refill [facility] Nithya Alfredo MD Refill Request [place] [address] [facility] [address] [place] [address] Suite [facility] [address] [place] [address] 4-[address] [phone] Social History Tobacco Use Types Packs/Day Years Used Date Smoking Tobacco: Every Day Cigarettes 0.5 10 Smokeless Tobacco: Never Alcohol Use Standard Drinks/Week Comments No 0 (1 standard drink = 0.6 oz pure alcoho l) Sex Assigned at Date Recorded Female 01/14/2020 10:57 AM OREMAN documented as of this encounter Miscellaneous Notes Telephone Encounter - Madonna Cody - 05/19/2012 2:40 PM CDT The script was faxed and Stephani was notified and also given the information about the appointment. Telephone Encounter - Edgar Alfredo MD - 05/19/2012 2:22 PM CDT MUST NOT MISS THE NEXT APPOINTMENT -please advise Telephone Encounter - FlakitoTigist - 05/19/2012 2:05 PM CDT Pt ([phone]) calling, scheduled appt for med check for 06-09-12, states she has enough subutex until May 26 or , would like a rx for 05-26-12 that would cover until appt 06-09. Laineyeens [place] as listed in Epic. documented in this encounter Plan of Treatment Upcoming Encounters Date Type Specialty Care Team Description 12/20/2021 Office Visit Wound Care Luis Camara, DPM [address] [place] [address] (Wo rk) 01/21/2022 PRE VISIT Gastroenterology Landon [place], *-*INCOMIN G RECORDS*-* MD Luis Fernando [address] [place] [address] (Wo rk) 01/21/2022 Office Visit Gastroenterology Juanis Levi [address] [place] [address] Luis Fernando Miles MD [address] [place] [phone] documented as of this encounter Visit Diagnoses Diagnosis Opiate dependence (H) - Primary Opioid type dependence, unspecified documented in this encounter Care Teams Coining Press Operator Relationship Specialty Start Date End Date Edgar Alfredo MD PCP - General Family Practice 04/13/12 08/11/14 [address] [facility] 700 [place] [phone] documented as of this encounter
--- OUTSIDE RECORDS SUMMARY | 2021-12-14 16:32 | XMS_ITS | Encounter Summary ---
:1980 Author Organization [place] Address [address] [facility] [place] [address] Care Team Providers Name Role Phone None, Bfp Primary Care Provider Unavailable Reason for Visit Reason Onset Date Comments Call Back 12/26/2011 Encounter Details Date Type Department Care Team Description 12/26/[address] [facility] Nithya Alfredo MD Call Back [address] [place] [address] [address] [phone] [place] [phone] Social History Tobacco Use Types Packs/Day Years Used Date Smoking Tobacco: Every Day Cigarettes 0.5 10 Smokeless Tobacco: Never Alcohol Use Standard Drinks/Week Comments No 0 (1 standard drink = 0.6 oz pure alcoho l) Sex Assigned at Date Recorded Female 01/14/2020 10:57 AM DATACAP DEVELOPER documented as of this encounter Miscellaneous Notes Telephone Encounter - Edgar Alfredo MD - 12/26/2011 10:10 AM CST Will switch to Subutex at lower dose next week CAP DEVELOPER Telephone Encounter - Tigist Fraga - 12/26/2011 8:17 AM CST Incoming call from pt's partner Woody, pt also came on the phone. Pt gave call back # [phone]. Woody initially asked to speak to Dr Alfredo, stated it was a life threatening situation re pt's currentpregnancy, pt came on phone and asked to make an appt with Dr Alfredo, first available is 01-01, pt states she will be out of pills by then, pt wanting call back from Dr Alfredo. CAP DEVELOPER documented in this encounter Plan of Treatment Upcoming Encounters Date Type Specialty Care Team Description 12/20/2021 Office Visit Wound Care Luis Camara, DPM [address] [place] [address] (Wo rk) 01/21/2022 PRE VISIT Gastroenterology Landon Warren, *-*INCOMIN G RECORDS*-* MD Luis Fernando [address] [place] [address] (Wo rk) 01/21/2022 Office Visit Gastroenterology Juanis Levi [address] [place] [address] Luis Fernando Miles MD [address] [place] [phone] documented as of this encounter Visit Diagnoses Not on filedocumented in this encounter Care Teams News Camera Operator Relationship Specialty Start Date End Date None, Bfp PCP - General 03/02/99 04/12/12 documented as of this encounter
--- OUTSIDE RECORDS SUMMARY | 2021-12-14 16:32 | XMS_ITS | Encounter Summary ---
:1980 Author Organization [place] Address Replaced by [facility] [place] [address] Care Team Providers Name Role Phone None, Bfp Primary Care Provider Unavailable Reason for Visit Reason Onset Date Comments Medication Request 11/04/2011 Encounter Details Date Type Department Care Team Description 11/04/2011 Telephone [facility] Edgar Alfredo Ma, Medication Request Ashly VÁSQUEZ [address] [place] [address] [place] [address] [address] [place] [phone] (Reinaldo rk) Social History Tobacco Use Types Packs/Day Years Used Date Smoking Tobacco: Every Day Cigarettes 0.5 10 Smokeless Tobacco: Never Alcohol Use Standard Drinks/Week Comments No 0 (1 standard drink = 0.6 oz pure alcoho l) Sex Assigned at Date Recorded Female 01/14/2020 10:57 AM MAINTENANCE CARPENTER documented as of this encounter Miscellaneous Notes Telephone Encounter - Madonna Cody - 11/04/2011 1:43 PM CDT Script for suboxone was faxed to the [facility] in [place]. Telephone Encounter - Edgar Alfredo MD - [...] until . She can be reached at [phone]. documented in this encounter Plan of Treatment Upcoming Encounters Date Type Specialty Care Team Description 12/20/2021 Office Visit Wound Care Luis Camara, CALVIN [address] [place] [address] (Wo rk) 01/21/2022 PRE VISIT Gastroenterology Landon Warren, *-*WANDAIN G RECORDS*-* MD Luis Fernando [address] [place] [phone] (Wo rk) 01/21/2022 Office Visit Gastroenterology Juanis Levi [address] [place] [phone] Luis Fernando Miles MD [address] [place] [phone] documented as of this encounter Visit Diagnoses Diagnosis Opiate dependence (H) - Primary Opioid type dependence, unspecified documented in this encounter Care Teams Lime Trimmer Relationship Specialty Start Date End Date None, Bfp PCP - General 03/02/99 04/12/12 documented as of this encounter
--- OUTSIDE RECORDS SUMMARY | 2021-12-14 16:32 | XMS_ITS | Encounter Summary ---
:1980 Author Organization [place] Address [facility] [place] [address] Care Team Providers Name Role Phone None, Bfp Primary Care Provider Unavailable Edgar Alfredo MD Primary Care Provider Reason for Visit Reason Onset Date Comments Health Maintenance 10/28/2011 LDL goal Encounter Details Date Type Department Care Team Description 10/28/2011 Telephone [facility] Edgar Alfredo Hea lt Maintenance ([facility] goal ) [address] [facility] [address] [place] [address] [address] [place] [phone] (Wo rk) Social History Tobacco Use Types Packs/Day Years Used Date Smoking Tobacco: Every Day Cigarettes 0.5 10 Smokeless Tobacco: Never Alcohol Use Standard Drinks/Week Comments No 0 (1 standard drink = 0.6 oz pure alcoho l) Sex Assigned at Date Recorded Female 01/14/2020 10:57 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 MATERIAL HANDLER documented as of this encounter Miscellaneous Notes Telephone Encounter - Marycarmen Spence - 10/28/2011 3:45 PM CDT Per quality measure review, please add an LDL goal to this patient's current problem list. Marycarmen Spence RN documented in this encounter Plan of Treatment Upcoming Encounters Date Type Specialty Care Team Description 12/20/2021 Office Visit Wound Care Luis Camara, [place] [address] [place] [address] (Wo rk) 01/21/2022 PRE VISIT Gastroenterology Landon Warren, *-*INCOMIN G RECORDS*-* MD Luis Fernando [address] [facility] [address] [place] [address] (Wo rk) 01/21/2022 Office Visit Gastroenterology Jaunis Levi [address] [place] [address] Luis Fernando Miles MD [address] [phone] documented as of this encounter Visit Diagnoses Not on filedocumented in this encounter Care Teams Purifying Plant Operator Relationship Specialty Start Date End Date None, Bfp PCP - General 03/02/99 04/12/12 Edgar Alfredo MD PCP - General Family Practice 04/13/12 08/11/14 [address] [facility] 700 [place] [phone] documented as of this encounter
--- OUTSIDE RECORDS SUMMARY | 2021-12-14 16:33 | XMS_ITS | Encounter Summary ---
:1980 Author Organization [place] Address [facility] [place] [address] Care Team Providers Name Role Phone None, Bfp Primary Care Provider Unavailable Encounter Details Date Type Department Care Team Description 04/11/2010 Emergency room [facility] Results EMERGENCY PHYSI KALLIE SWIFT [address] [place], [place] [address] Social History Tobacco Use Types Packs/Day Years Used Date Smoking Tobacco: Never Assessed Sex Assigned at Date Recorded Female 01/14/2020 10:57 AM DEVELOPMENT MANAGER documented as of this encounter Progress Notes Interface, Building Maintenance Mechanic - 04/12/2010 5:49 AM DEVELOPMENT MANAGER FINAL Chief Complaint - History of Present [...] or malaise. 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 White. Medications - Medication: [...] done in the presence of a female car pusher. The patient was sent for a US [...] MT: Name: STEPHANI MCCORMICK MRN: [id number] Account: [id number] : 1980 Visit Date: 04/11/2010 Document: [id number] LOPMENT MANAGER documented in this encounter Plan of Treatment Upcoming Encounters Date Type Specialty Care Team Description 12/20/2021 Office Visit Wound Care Luis Camara DPM [address] [place] [address] (Wo rk) 01/21/2022 PRE VISIT Gastroenterology Landon Warren, *-*WANDAIN G RECORDS*-* MD Luis Fernando [address] [place] [phone] (Wo rk) 01/21/2022 Office Visit Gastroenterology Juanis Levi [address] [place] [phone] Luis Fernando Miles MD [address] [place] [address] documented as of this encounter Visit Diagnoses Not on filedocumented in this encounter Care Teams Psychiatric Lpn Relationship Specialty Start Date End Date None, Bfp PCP - General 03/02/99 04/12/12 documented as of this encounter
--- OUTSIDE RECORDS SUMMARY | 2021-12-14 16:33 | XMS_ITS | Encounter Summary ---
:1980 Author Organization [place] Address [address] [place] [address] Care Team Providers Name Role Phone None, Bfp Primary Care Provider Unavailable Encounter Details Date Type Department Care Team Description 01/06/2005 Admission H&P (Automotive Teacher) Unknown, Pr ovider Social History Tobacco Use Types Packs/Day Years Used Date Smoking Tobacco: Never Assessed Sex Assigned at Date Recorded Female 01/14/2020 10:57 AM NUCLEAR WASTE MANAGEMENT ENGINEER documented as of this encounter Plan of Treatment Upcoming Encounters Date Type Specialty Care Team Description 12/20/2021 Office Visit Wound Care Luis Camara DPM [address] [place], [place] [address] (Wo rk) 01/21/2022 PRE VISIT Gastroenterology Landon Warren, *-*WANDAIN G RECORDS*-* MD Luis Fernando [address] [place] [phone] (Wo rk) 01/21/2022 Office Visit Gastroenterology Juanis Levi [address] [place] [phone] Luis Fernando Miles MD [address] [place] [phone] documented as of this encounter Visit Diagnoses Not on filedocumented in this encounter Care Teams Senior Sourcing Manager Relationship Specialty Start Date End Date None, Bfp PCP - General 03/02/99 04/12/12 documented as of this encounter
--- OUTSIDE RECORDS SUMMARY | 2021-12-14 16:33 | XMS_ITS | Encounter Summary ---
:1980 Author Organization [place] Address [address] [place] [address]. [place] [address] Care Team Providers Name Role Phone None, Bfp Primary Care Provider Unavailable Reason for Visit Reason Onset Date Comments Medication Request 10/15/2011 Encounter Details Date Type Department Care Team Description 10/15/[address] [facility] None, Bfp Medication Request [address] [place] [address] [address] [place] [phone] Social History Tobacco Use Types Packs/Day Years Used Date Smoking Tobacco: Never Assessed Sex Assigned at Date Recorded Female 01/14/2020 10:57 AM DATAPOWER CONSULTANT documented as of this encounter Miscellaneous [...] Dosage (if available): 24mg tabs 3) Pharmacy: [facility] Pt calling- stated she spoke with [...] Oct 23 appt. Please contact pt at [phone] documented in this encounter Plan of Treatment Upcoming Encounters Date Type Specialty Care Team Description 12/20/2021 Office Visit Wound Care Luis Camara DPM [address] [place], [place] [address]195 (Wo rk) 01/21/2022 PRE VISIT Gastroenterology Landon Warren, *-*WANDAIN G RECORDS*-* MD Luis Fernando [address] [place] [phone] (Wo rk) 01/21/2022 Office Visit Gastroenterology Juanis Levi [address] [place] [address] Luis Fernando Miles MD [address] [place] [phone] documented as of this encounter Visit Diagnoses Not on filedocumented in this encounter Care Teams Manager Life Relationship Specialty Start Date End Date None, Bfp PCP - General 03/02/99 04/12/12 documented as of this encounter
--- OUTSIDE RECORDS SUMMARY | 2021-12-14 16:33 | XMS_ITS | Encounter Summary ---
:1980 Author Organization [place] Address [address] [place] [address]. [address] Care Team Providers Name Role Phone None, Bfp Primary Care Provider Unavailable Encounter Details Date Type Department Care Team Description 08/30/2006 Results Only [facility] Sulma Barillas MD [address] [place] [address] (Wo rk) Social History Tobacco Use Types Packs/Day Years Used Date Smoking Tobacco: Never Assessed Sex Assigned at Date Recorded Female 01/14/2020 10:57 AM ROUNDER HAND documented as of this encounter Plan of Treatment Upcoming Encounters Date Type Specialty Care Team Description 12/20/2021 Office Visit Wound Care Lius Camara, [place] [address] [place], [place] [phone] (Wo rk) 01/21/2022 PRE VISIT Gastroenterology Landon Warren, *-*WANDAIN G RECORDS*-* MD Luis Fernando [address] [place] [address] [address] [place], [place] [address]365 (Wo rk) 01/21/2022 Office Visit Gastroenterology Juanis Levi [address] [place] [address] Luis Fernando Miles MD [address] [facility] [place] [address] documented as of this encounter Procedures Procedure Name Priority Date/Time Associated Diagnosis Comme nts [facility] LT X-RAY KNEE 1 Routine 08/30/2006 3:28 PM Re sults for this OR 2 VIEW CDT procedure are i n the results section. [facility] RT X-RAY KNEE 1 Routine 08/30/2006 3:27 [...] on filedocumented in this encounter Care Teams Puller Out Relationship Specialty Start Date End Date None, Bfp PCP - General 03/02/99 04/12/12 documented as of this encounter
--- OUTSIDE RECORDS SUMMARY | 2021-12-14 16:33 | XMS_ITS | Encounter Summary ---
:1980 Author Organization [place] Address [facility] [place] [address] Care Team Providers Name Role Phone None, Bfp Primary Care Provider Unavailable Encounter Details Date Type Department Care Team Description 05/09/2004 Discharge Summary (Print Shop Helper) Unknown , Provider Social History Tobacco Use Types Packs/Day Years Used Date Smoking Tobacco: Never Assessed Sex Assigned at Date Recorded Female 01/14/2020 10:57 AM EXTERNAL GRINDER documented as of this encounter Plan of Treatment Upcoming Encounters Date Type Specialty Care Team Description 12/20/2021 Office Visit Wound Care Luis Camara DPM 909 [place], [place] [phone] (Wo rk) 01/21/2022 PRE VISIT Gastroenterology Landon Warren, *-*WANDAIN G RECORDS*-* MD Luis Fernando [address] [place] [address] [phone] (Wo rk) 01/21/2022 Office Visit Gastroenterology Juanis Levi [address] [place] [phone] Luis Fernando Miles MD [address] [place] [address] [phone] documented as of this encounter Visit Diagnoses Not on filedocumented in this encounter Care Teams Keysmith Relationship Specialty Start Date End Date None, Bfp PCP - General 03/02/99 04/12/12 documented as of this encounter
--- OUTSIDE RECORDS SUMMARY | 2021-12-14 16:33 | XMS_ITS | Encounter Summary ---
:1980 Author Organization [place] Address [facility] [place] [address] Care Team Providers Name Role Phone None, Bfp Primary Care Provider Unavailable Encounter Details Date Type Department Care Team Description 05/17/2008 Historic Notes INTERFACED REPORT Interface, Transcript MD laurel Social History Tobacco Use Types Packs/Day Years Used Date Smoking Tobacco: Never Assessed Sex Assigned at Date Recorded Female 01/14/2020 10:57 AM MULTIMEDIA PROJECT MANAGER documented as of this encounter Progress Notes Interface, Tapper Shank - 05/06/2010 5:46 AM CDT Allergies ?? [...] Visit Wound Care Luis Camara DPM [address] [place], [place] [address]3815 (Wo rk) 01/21/2022 PRE VISIT Gastroenterology Landon Warren, *-*HEATHER G RECORDS*-* MD Luis Fernando 516 [facility] 2A [place] [address] (Wo rk) 01/21/2022 Office Visit Gastroenterology Juanis Levi [address] [place] [phone] Luis Fernando Miles MD [address] [facility] 2[address] [place], [place] [address] documented as of this encounter Visit Diagnoses Not on filedocumented in this encounter Care Teams [place] Professor Relationship Specialty Start Date End Date None, Bfp PCP - General 03/02/99 04/12/12 documented as of this encounter
--- OUTSIDE RECORDS SUMMARY | 2021-12-14 16:33 | XMS_ITS | Encounter Summary ---
:1980 Author Organization [place] Address [address] [place] [address] Care Team Providers Name Role Phone None, Bfp Primary Care Provider Unavailable Encounter Details Date Type Department Care Team Description 08/30/2006 Historic Results [facility] Do nuno Barillas MD Medical [address] [place] [address] (Wo rk) Social History Tobacco Use Types Packs/Day Years Used Date Smoking Tobacco: Never Assessed Sex Assigned at Date Recorded Female 01/14/2020 10:57 AM ROVING TECHNICIAN documented as of this encounter Plan of Treatment Upcoming Encounters Date Type Specialty Care Team Description 12/20/2021 Office Visit Wound Care Luis Camara, CALV[place] [address] [place], [place] [address] (Wo rk) 01/21/2022 PRE VISIT Gastroenterology Landon Warren, *-*WANDAIN G RECORDS*-* MD Luis Fernando [address] [address] (Wo rk) 01/21/2022 Office Visit Gastroenterology Juanis Levi [address]50 [place] [address] Luis Fernando Miles MD 6 [facility] 2A [place] [address] documented as of this encounter Procedures Procedure [...] (ABNORMAL) CRP inflammation (08/30/2006 3:06 PM CDT) [facility] Method Time Signature CRP Inflammation 8.6 (H) 0.0 - 8.0 MISYS mg/L Specimen Anatomical Collection Method Collection Time Receive d Time (Source) Location / / Volume Laterality 08/30/2006 3:06 PM 7 2:52 CDT PM CDT Inder Barillas MD LAB - BLOOD ORDERABLES Performing Organization Address City/State/ZIP Code Phon e Number MISYS Hemogram differential and platelet (08/30/2006 3:06 PM CDT) [facility] Method Time Signature [id number] - [...] - BLOOD ORDERABLES Performing Organization Address City/State/[facility] Phon e Number MISYS Erythrocyte sedimentation rate [...] to Borrelia ?b urgdorferi detected. Performed by [facility], [address] [place] [id number] [email or web address], ??Scout Goodman MD - Lab. Director Specimen Anatomical Collection Method Collection Time Receive d Time (Source) Location / / Volume Laterality 08/30/2006 3:06 PM 7 2:52 CDT PM CDT Inder Barillas MD LAB - BLOOD ORDERABLES Performing Organization Address City/[facility] Code Phon e Number MISYS HCG [...] on filedocumented in this encounter Care Teams Door Slinger Relationship Specialty Start Date End Date None, Bfp PCP - General 03/02/99 04/12/12 documented as of this encounter
--- OUTSIDE RECORDS SUMMARY | 2021-12-14 16:33 | XMS_ITS | Encounter Summary ---
:1980 [facility] [address] [place] [address] Care Team Providers Name Role Phone Unavailable Primary Care Provider Unavailable Reason for Visit Procedure/Equipment (Routine) - Incomplete Specialty Diagnoses / Procedures Referred By Contact Refer red To Contact Diagnoses Chronic pain of left knee Jamie Sr MBBS Procedures XR Knee Lt 3 Views [address] [place], [place] [address] Referral ID Status Reason Start Date Expiration Date Visits V isits Requested Authorized [id number] Incomplete 08/26/2020 11/25/2021 1 1 Encounter Details Date Type Department Care Team Description 08/26/2020 Ancillary Procedure [facility] Canceled (Patient [id number] Request) [place] [address] Social History Tobacco Use Types Packs/Day Years Used Date Smoking Tobacco: Every Day Smokeless Tobacco: Never Sex Assigned at Date Recorded Not on file documented as of this encounter Plan of Treatment Not on filedocumented as of this encounter Visit Diagnoses Not on filedocumented in this encounter
--- OUTSIDE RECORDS SUMMARY | 2021-12-14 16:33 | XMS_ITS | Encounter Summary ---
:1980 [facility] Address [address] [place] [address] Care Team Providers Name Role Phone Unavailable Primary Care Provider Unavailable Reason for Visit Procedure/Equipment (Routine) - Incomplete Specialty Diagnoses / Procedures Referred By Contact Refer red To Contact Diagnoses Acute right ankle pain Jamie Sr MBBS Procedures XR Ankle Rt 3 Views [address] [place], [place] [address] Referral ID Status Reason Start Date Expiration Date Visits V isits Requested Authorized [id number] Incomplete 08/26/2020 11/25/2021 1 1 Encounter Details Date Type Department Care Team Description 08/26/2020 Ancillary Procedure [facility] Canceled (Patient [id number] Request) [place] [address] Social History Tobacco Use Types Packs/Day Years Used Date Smoking Tobacco: Every Day Smokeless Tobacco: Never Sex Assigned at Date Recorded Not on file documented as of this encounter Plan of Treatment Not on filedocumented as of this encounter Visit Diagnoses Not on filedocumented in this encounter
--- OUTSIDE RECORDS SUMMARY | 2021-12-14 16:33 | XMS_ITS | Clinical Summary ---
:1980 Author Organization [facility] Address [address] [place] [address] Care Team Providers Name Role Phone Unavailable [...]
--- OUTSIDE RECORDS SUMMARY | 2021-12-14 16:33 | XMS_ITS | Encounter Summary ---
:1980 Author Organization [facility] Address [address] [place] [address] Care Team Providers Name Role Phone Unavailable Primary Care Provider Unavailable Reason for Visit Reason Comments Knee Pain or Injury ANKLE PAIN Encounter Details Date Type Department Care Team Description 08/26/2020 Hospital Encounter [facility] [address] Aishwarya Marie MD Chronic pain of left knee; Urgent Care [address] [place] Acute right ankle pain [address] [place] [address] [phone] Social History Tobacco Use Types Packs/Day Years [...]
--- OUTSIDE RECORDS SUMMARY | 2021-12-14 16:33 | XMS_ITS | Encounter Summary ---
:1980 Author Organization [facility] Address [address] [place] [address] Care Team Providers Name Role Phone None, Bfp Primary Care Provider Unavailable Encounter Details Date Type Department Care Team Description 10/04/2003 Emergency room Shavonne Ansari MD EMERGENCY PHYSIC JAZZ SWIFT [address] [facility] [address] [place] [address] (Wo rk) Social History Tobacco Use Types Packs/Day Years Used Date Smoking Tobacco: Never Assessed Sex Assigned at Date Recorded Female 01/14/2020 10:57 AM SUPERINTENDENT STEVEDORING documented as of this encounter ED Notes [...] Acute pyelonephritis. SHAVONNE ANSARI MD MT: Document: [id number] [place], [place] Name: STEPHANI MCCORMICK EMERGENCY ROOM ENCOUNTER Page 2 of 2 LCN: ER DSC: 09/21/2003 [place], [place] Name: STEPHANI MCCORMICK MR#: : Admit Date: [id number] 1980 09/21/2003 Doctor: SHAVONNE ANSARI MD EMERGENCY ROOM ENCOUNTER Page 1 of 2 documented in this encounter Plan of Treatment Upcoming Encounters Date Type Specialty Care Team Description 12/20/2021 Office Visit Wound Care Luis Camara DPM [address] [place], [place] [phone] (Wo rk) 01/21/2022 PRE VISIT Gastroenterology Landon Warren, *-*HEATHER Barriga RECORDS*-* MD Luis Fernando [address] [phone] (Wo rk) 01/21/2022 Office Visit Gastroenterology Juanis Levi [address] [place] [phone] Luis Fernando Miles MD [address] [place] [phone] documented as of this encounter Visit Diagnoses Not on filedocumented in this encounter Care Teams Art Gallery Internship Relationship Specialty Start Date End Date None, Bfp PCP - General 03/02/99 04/12/12 documented as of this encounter
--- OUTSIDE RECORDS SUMMARY | 2021-12-14 16:33 | XMS_ITS | Encounter Summary ---
:1980 Author Organization [place] Address [facility] [place] [address] Care Team Providers Name Role Phone None, Bfp Primary Care Provider Unavailable Encounter Details Date Type Department Care Team Description 01/16/2005 Operative Report Mal Dupree MD (Sports Therapist) [facility] [address] [place], [place] [address] (Wo rk) Social History Tobacco Use Types Packs/Day Years Used Date Smoking Tobacco: Never Assessed Sex Assigned at Date Recorded Female 01/14/2020 10:57 AM CONSERVATION OR HERITAGE ARCHITECT documented as of this encounter Progress Notes Radames Dupree - 01/16/2005 11:59 PM CONSERVATION OR HERITAGE ARCHITECT PREOPERATIVE DIAGNOSIS: Right calcaneus fracture at the calcaneocuboid joint. POSTOPERATIVE DIAGNOSIS: Right calcaneus fracture at the calcaneocuboid joint. NAME OF OPERATION: Primary fusion of the right calcaneocuboid joint with bone grafting. SURGEON: Radames Dupree MD. MANAGER FITNESS: Carmen Winston Steam Cleaner. OPERATIVE PROCEDURE: The patient was brought to [...] entire plate on. This was removed with [employer] oxidized finish plater. The plate was then applied to [...] satisfactory condition. RADAMES DUPREE MD Dictated by: RADAMSE DUPREE MD MT: [email or web address] Document: [id number] LCN: [id number] DSC: 01/16/2005 Name: MR#: : Procedure Date: STEPHANI MCCORMICK -66 1980 01/16/2005 OPERATIVE REPORT Page 2 of 2 ERVATION OR HERITAGE ARCHITECT documented in this encounter Plan of Treatment Upcoming Encounters Date Type Specialty Care Team Description 12/20/2021 Office Visit Wound Care Luis Camara, [place] [address] [place] [address] (Wo rk) 01/21/2022 PRE VISIT Gastroenterology Landon Warren, *-*HEATHER G RECORDS*-* MD Luis Fernando [address] [place] [phone] (Wo rk) 01/21/2022 Office Visit Gastroenterology Juanis Levi [address] [place] [phone] Luis Fernando Miles MD [address] [place] [phone] documented as of this encounter Visit Diagnoses Not on filedocumented in this encounter Care Teams [employer] Retailer Sales Consultant Relationship Specialty Start Date End Date None, Bfp PCP - General 03/02/99 04/12/12 documented as of this encounter
--- OUTSIDE RECORDS SUMMARY | 2021-12-14 16:33 | XMS_ITS | Encounter Summary ---
:1980 Author Organization [place] Address [facility] [place] [address] Care Team Providers Name Role Phone None, Bfp Primary Care Provider Unavailable Encounter Details Date Type Department Care Team Description 09/29/2003 Emergency room Santo Delong MD [address] [place] [address] (Wo rk) Social History Tobacco Use Types Packs/Day Years Used Date Smoking Tobacco: Never Assessed Sex Assigned at Date Recorded Female 01/14/2020 10:57 AM FINGERNAIL TECHNICIAN documented as of this encounter ED Notes [...] urinalysis. [id number] SANTO DELONG MD MT: Document: [id number] [place], [place] Name: STEPHANI MCCORMICK EMERGENCY ROOM ENCOUNTER Page 2 of 2 LCN: JOSEPH DSC: 09/29/2003 [place], [place] Name: MR#: : Admit Date: STEPHANI MCCORMICK -66 1980 09/29/2003 Doctor: SANTO DELONG MD EMERGENCY ROOM ENCOUNTER Page 1 of 2 documented in this encounter Plan of Treatment Upcoming Encounters Date Type Specialty Care Team Description 12/20/2021 Office Visit Wound Care Luis Camara, [place] [address] [place] [address] (Wo rk) 01/21/2022 PRE VISIT Gastroenterology Landon Warren, *-*HEATHER G RECORDS*-* MD Luis Fernando [address] [place] [phone] (Wo rk) 01/21/2022 Office Visit Gastroenterology Juanis Levi [address] [place] [phone] Luis Fernando Miles MD [address] [place] [phone] documented as of this encounter Visit Diagnoses Not on filedocumented in this encounter Care Teams Lurer Relationship Specialty Start Date End Date None, Bfp PCP - General 03/02/99 04/12/12 documented as of this encounter
--- OUTSIDE RECORDS SUMMARY | 2021-12-14 16:33 | XMS_ITS | Encounter Summary ---
:1980 Author Organization [place] Address [facility] [place] [address] Care Team Providers Name Role Phone None, Bfp Primary Care Provider Unavailable Encounter Details Date Type Department Care Team Description 04/10/2010 Historic Results INTERFACED REPORT No Ref-Primar y, Physician Social History Tobacco Use Types Packs/Day Years Used Date Smoking Tobacco: Never Assessed Sex Assigned at Date Recorded Female 01/14/2020 10:57 AM CLOCK ASSEMBLER documented as of this encounter Plan of Treatment Upcoming Encounters Date Type Specialty Care Team Description 12/20/2021 Office Visit Wound Care Luis Camara, [place] [address] [place], [place] [address] (Wo rk) 01/21/2022 PRE VISIT Gastroenterology Landon Warren, *-*WANDAIN G RECORDS*-* MD Luis Fernando [address] [place] [phone] (Wo rk) 01/21/2022 Office Visit Gastroenterology Juanis Levi [address] [place] [phone] Luis Fernando Miles MD [address] [place] [place] [phone] documented as of this encounter Procedures Procedure Name Priority Date/Time Associated Comments Diagnosis WET PREPARATION Routine 04/10/2010 11:55 Results for this PM CLOCK ASSEMBLER procedure are i n the results section. NEISSERIA GONORRHOEAE Routine 04/10/2010 11:55 Re sults for this PCR PM CLOCK ASSEMBLER procedure are i n the results section. CHLAMYDIA TRACHOMATIS Routine 04/10/2010 11:55 Re sults for this PCR PM CLOCK ASSEMBLER procedure are i n the results section. CBC WITH PLATELETS & STAT 04/10/2010 11:20 Res ults for this DIFFERENTIAL PM CLOCK ASSEMBLER procedure are i n the results section. BILIRUBIN TOTAL Routine 04/10/2010 11:20 Results for this PM CLOCK ASSEMBLER procedure are i n the results section. AST Routine 04/10/2010 11:20 Results for this PM CLOCK ASSEMBLER procedure are i n the results section. ALT Routine 04/10/2010 11:20 Results for this PM CLOCK ASSEMBLER procedure are i n the results section. ALKALINE PHOSPHATASE Routine 04/10/2010 11:20 Res ults for this PM CLOCK ASSEMBLER procedure are i n the results section. BASIC METABOLIC PANEL STAT 04/10/2010 11:20 Re sults for this PM CLOCK ASSEMBLER procedure are i n the results section. ROUTINE UA WITH STAT 04/10/2010 10:14 Results for this MICROSCOPIC PM CLOCK ASSEMBLER procedure are i n the results section. URINE CULTURE Routine 04/10/2010 10:14 Results fo r this PM CLOCK ASSEMBLER procedure are i n the results section. documented in this encounter Results Chlamydia trachomatis PCR (04/10/2010 11:55 PM CLOCK ASSEMBLER) Component Value Ref Test Analysis Performed At [facility] Xpliant Method Time Signature Specimen Cervical MISYS Description Chlamydia Negative for C. MISYS Trachomatis PCR trachomatis rRNA by park manager mediated amplification. Comment: A negative result by park manager medi ated amplification does not preclude the presence of C. trachomatis infection be cause results are dependent on proper and adequate collection, absence of inh ibitors, and sufficient rRNA to be detected. Specimen Anatomical Collection Method Collection Time Receive d Time (Source) Location / / Volume Laterality 04/10/2010 11:55 04/11/2010 PM CLOCK ASSEMBLER 12:10 AM CLOCK ASSEMBLER Physician No Ref-Primary LAB - MICRO GENERAL ORDERABL ES Performing Organization Address City/State/ZIP Code Phon e Number MISYS Neisseria gonorrhoeae PCR (04/10/2010 11:55 PM CLOCK ASSEMBLER) [facility] MyClean Method Time Signature Specimen Cervical MISYS Descrip N Gonorrhea Negative for N. MISYS PCR gonorrhoeae rRNA by park manager mediated amplification. Comment: A negative result by park manager medi ated amplification does not preclude the presence of N. gonorrhoeae infection be cause results are dependent on proper and adequate collection, absence of inh ibitors, and sufficient rRNA to be detected. Specimen Anatomical Collection Method Collection Time Receive d Time (Source) Location / / Volume Laterality 04/10/2010 11:55 04/11/2010 PM CLOCK ASSEMBLER 12:10 AM CLOCK ASSEMBLER Physician No Ref-Primary LAB - MICRO GENERAL ORDERABL ES Performing Organization Address City/[facility]/ZIP Code Phon e Number MISYS Wet prep (04/10/2010 11:55 PM CLOCK ASSEMBLER) [facility] MyClean Method Time [facility] Specimen Vagina MISYS Description Micro Report FINAL MISYS Status 04/11/2010 Wet Prep Moderate MISYS PMNs seen Comment: No yeast seen No Trichomonas seen Clue cells seen Specimen Anatomical Collection Method Collection Time Receive d Time (Source) Location / / Volume Laterality 04/10/2010 11:55 04/11/2010 PM CLOCK ASSEMBLER 12:10 AM CLOCK ASSEMBLER Physician No Ref-Primary LAB - MICRO GENERAL ORDERABL ES Performing Organization Address City/State/ZIP Code Phon e Number MISYS (ABNORMAL) CBC with platelets differential (04/10/2010 11:20 PM CLOCK ASSEMBLER) [facility] Method Time [facility] MCV 87 78 - 100 MISYS fl [...] / Volume Laterality 04/10/2010 11:20 04/10/2010 PM CLOCK ASSEMBLER 11:03 PM CLOCK ASSEMBLER Breanna Main MD LAB - BLOOD ORDERABLES Performing Organization Address City/State/ZIP Code Phon e Number MISYS Basic metabolic panel (04/10/2010 11:20 PM CLOCK ASSEMBLER) P athologist Signature Sodium 135 133 - [...] / Volume Laterality 04/10/2010 11:20 04/10/2010 PM CLOCK ASSEMBLER 11:03 PM CLOCK ASSEMBLER Breanna Main MD LAB - BLOOD ORDERABLES Performing Organization Address City/State/ZIP Code Phon e Number MISYS Alkaline phosphatase (04/10/2010 11:20 PM CLOCK ASSEMBLER) P athologist Signature Alkaline 55 40 - 150 MISYS Phosphatase U/L Specimen Anatomical Collection Method Collection Time Receive d Time (Source) Location / / Volume Laterality 04/10/2010 11:20 04/11/2010 PM CLOCK ASSEMBLER 12:08 AM CLOCK ASSEMBLER Breanna Main MD LAB - BLOOD ORDERABLES Performing Organization Address [facility]/ZIP Code Phon e Number MISYS ALT (04/10/2010 11:20 PM CLOCK ASSEMBLER) athologist Signature ALT 41 0 - 50 U/L MISYS Specimen Anatomical Collection Method Collection Time Receive d Time (Source) Location / / Volume Laterality 04/10/2010 11:20 04/11/2010 PM CLOCK ASSEMBLER 12:08 AM CLOCK ASSEMBLER Breanna Main MD LAB - BLOOD ORDERABLES Performing Organization Address [facility] Code Phon e Number MISYS AST (04/10/2010 11:20 PM CLOCK ASSEMBLER) athologist Signature AST 31 0 - 45 U/L MISYS Specimen Anatomical Collection Method Collection Time Receive d Time (Source) Location / / Volume Laterality 04/10/2010 11:20 04/11/2010 PM CLOCK ASSEMBLER 12:08 AM CLOCK ASSEMBLER Breanna Main MD LAB - BLOOD ORDERABLES Performing Organization Address [facility] Phon e Number MISYS Bilirubin total (04/10/2010 11:20 PM CLOCK ASSEMBLER) athologist Signature Bilirubin Total 0.4 0.2 - 1.3 MISYS mg/dL Specimen Anatomical Collection Method Collection Time Receive d Time (Source) Location / / Volume Laterality 04/10/2010 11:20 04/11/2010 PM CLOCK ASSEMBLER 12:08 AM CLOCK ASSEMBLER Breanna Main MD LAB - BLOOD ORDERABLES Performing Organization Address [facility] Code Phon e Number MISYS (ABNORMAL) Routine UA with microscopic (04/10/2010 10:14 PM CLOCK ASSEMBLER) [facility] Method Time Signature Source Midstream MISYS Urine Color Urine Yellow MISYS Appearance Urine Slightly MISYS Cloudy Glucose Urine Negative NEG mg/dL MISYS Bilirubin Urine Negative NEG MISYS Ketones Urine Negative NEG mg/dL MISYS Specific [place] 1.019 1.003 - MISYS Urine 1.035 Blood [...] / Volume Laterality 04/10/2010 10:14 04/10/2010 PM CLOCK ASSEMBLER 10:17 PM CLOCK ASSEMBLER Breanna Main MD LAB - URINE ORDERABLES Performing Organization Address City/State/ZIP Code Phon e Number MISYS Urine culture (04/10/2010 10:14 PM CLOCK ASSEMBLER) [facility] gist Method Time Signature Specimen Midstream MISYS Description Urine Culture Micro No growth MISYS Micro Report FINAL MISYS Status 04/12/2010 Specimen Anatomical Collection Method Collection Time Receive d Time (Source) Location / / Volume Laterality 04/10/2010 10:14 04/10/2010 PM CLOCK ASSEMBLER 10:37 PM CLOCK ASSEMBLER Physician No Ref-Primary LAB - MICRO GENERAL ORDERABL ES Performing Organization Address City/State/ZIP Code Phon e Number MISYS documented in this encounter Visit Diagnoses Not on filedocumented in this encounter Care Teams Manager Customer Relationship Specialty Start Date End Date None, Bfp PCP - General 03/02/99 04/12/12 documented as of this encounter
--- OUTSIDE RECORDS SUMMARY | 2021-12-14 16:33 | XMS_ITS | Encounter Summary ---
:1980 Author Organization [place] Address [address] [place] [address] Care Team Providers Name Role Phone None, Bfp Primary Care Provider Unavailable Encounter Details Date Type Department Care Team Description 01/05/2005 Historic Results [facility] Shukri Reddy MD Emergency Department [facility] [address] [address] [place] [phone] Social History Tobacco Use Types Packs/Day Years Used Date Smoking Tobacco: Never Assessed Sex Assigned at Date Recorded Female 01/14/2020 10:57 AM PIPELINE MAINTENANCE SUPERVISOR documented as of this encounter Plan of Treatment Upcoming Encounters Date Type Specialty Care Team Description 12/20/2021 Office Visit Wound Care Luis Camara DPM [address] [place] [address] (Wo rk) 01/21/2022 PRE VISIT Gastroenterology Landon Warren, *-*HEATHER G RECORDS*-* MD Luis Fernando [address] [address] (Wo rk) 01/21/2022 Office Visit Gastroenterology Juanis Levi [address] [place] [phone] Luis Fernando Miles MD [address] [address] documented as of this encounter Procedures Procedure Name Priority Date/Time Associated Comments Diagnosis UA MACROSCOPIC WITH STAT 01/05/2005 8:45 PM Re sults for this REFLEX TO MICRO PIPELINE MAINTENANCE SUPERVISOR procedure ar e in the results section. URINE MICROSCOPIC Routine 01/05/2005 8:45 PM Resu lts for this EXAM PIPELINE MAINTENANCE SUPERVISOR procedure are i n the results section. DRUG ABUSE SCREEN 8 STAT 01/05/2005 8:45 PM Re sults for this URINE (UR) PIPELINE MAINTENANCE SUPERVISOR procedure are i n the results section. documented in this encounter Results (ABNORMAL) UA macroscopic with reflex to micro (01/05/2005 8:45 PM PIPELINE MAINTENANCE SUPERVISOR) [facility] Method Time Signature Source Midstream MISYS Urine Color Urine Yellow MISYS Appearance Urine Clear MISYS Glucose Urine Negative NEG mg/dL MISYS Bilirubin Urine Negative NEG MISYS Ketones Urine Negative NEG mg/dL MISYS Specific [place] 1.034 1.003 - MISYS Urine 1.035 Blood [...] Volume Laterality 01/05/2005 8:45 PM 5 8:45 PIPELINE MAINTENANCE SUPERVISOR PM PIPELINE MAINTENANCE SUPERVISOR Shukri Reddy MD LAB - URINE ORDERABLES Performing Organization Address City/State/ZIP Code Phon e Number MISYS (ABNORMAL) Drug abuse screen 8 urine (UR) (01/05/2005 8:45 PM PIPELINE MAINTENANCE SUPERVISOR) [facility] Method Time Signature Amphetamine Qual Negative NEG [...] Volume Laterality 01/05/2005 8:45 PM 5 8:45 PIPELINE MAINTENANCE SUPERVISOR PM PIPELINE MAINTENANCE SUPERVISOR Shukri Reddy MD LAB - URINE ORDERABLES Performing Organization Address City/State/ZIP Code Phon e Number MISYS (ABNORMAL) Microscopic exam urine (01/05/2005 8:45 PM PIPELINE MAINTENANCE SUPERVISOR) [facility] gist Method Time Signature WBC Urine O [...] Volume Laterality 01/05/2005 8:45 PM 5 9:00 PIPELINE MAINTENANCE SUPERVISOR PM PIPELINE MAINTENANCE SUPERVISOR Shukri Reddy MD LAB - URINE ORDERABLES Performing Organization Address City/State/ZIP Code Phon e Number MISYS documented in this encounter Visit Diagnoses Not on filedocumented in this encounter Care Teams Conservation Policy Analyst Relationship Specialty Start Date End Date None, Bfp PCP - General 03/02/99 04/12/12 documented as of this encounter
--- OUTSIDE RECORDS SUMMARY | 2021-12-14 16:33 | XMS_ITS | Encounter Summary ---
:1980 Author Organization [place] Address [address] [place] [address] Care Team Providers Name Role Phone None, Bfp Primary Care Provider Unavailable Encounter Details Date Type Department Care Team Description 04/11/2010 Results Only [facility] Breanna Main, Hospital Results EMERGENCY PHYSIC JAZZ SWIFT [address] [place], [place] [phone] (Wo rk) Social History Tobacco Use Types Packs/Day Years Used Date Smoking Tobacco: Never Assessed Sex Assigned at Date Recorded Female 01/14/2020 10:57 AM TEMPLATE CHECKER documented as of this encounter Plan of Treatment Upcoming Encounters Date Type Specialty Care Team Description 12/20/2021 Office Visit Wound Care Luis Camara, [place] [address] [place], [place] [phone] (Wo rk) 01/21/2022 PRE VISIT Gastroenterology Landon Warren, *-*WANDAIN G RECORDS*-* MD Luis Fernando [address] [facility] [place] [address] (Wo rk) 01/21/2022 Office Visit Gastroenterology Juanis Levi [address] [place] [phone] Luis Fernando Miles MD [address] [facility] [place] [address] documented as of this encounter Procedures Procedure Name Priority Date/Time Associated Diagnosis Comme nts US OB > 14 WEEKS Routine 04/11/2010 12:40 AM Resu lts for this TEMPLATE CHECKER procedure are i n the results section. US ABDOMEN LIMITED Routine 04/11/2010 12:39 AM Re sults for this TEMPLATE CHECKER procedure are i n the results section. documented in this encounter Results US OB 14 + weeks single or first gestation (04/11/2010 12:40 AM TEMPLATE CHECKER) Anatomical Region Laterality Modality Abdomen/Pelvis Other Specimen (Source) Anatomical Collection Method Collection Time Re ceived Time Location / / Volume Laterality 04/11/2010 12:40 AM TEMPLATE CHECKER Impressions 04/11/2010 5:37 PM TEMPLATE CHECKER ULTRASOUND OBSTETRIC SECOND TO THIRD TRI MESTER [...] ORDERABLES US Abdomen Limited* (04/11/2010 12:39 AM TEMPLATE CHECKER) Anatomical Region Laterality Modality Abdomen/Pelvis Other Specimen (Source) Anatomical Collection Method Collection Time Re ceived Time Location / / Volume Laterality 04/11/2010 12:39 AM TEMPLATE CHECKER Impressions 04/11/2010 8:42 PM TEMPLATE CHECKER ULTRASOUND ABDOMEN LIMITED April 11, 2010 12:39:00 AM HISTORY: Right upper quadrant pain. COMPARISON: None. FINDINGS: Visualized portions of the pinon creatic neck appear normal, most of the pancreas is nonvisualized du e to overlying bowel gas. Normal appearing liver and right kidney. Right kidney measures 10.9 cm in length. The gallbladder appears muas l. No gallstones or gallbladder wall thickening. 4 mm common hepatic duct. IMPRESSION: Normal right upper quadrant ultrasound. Breanna Main MD IMG US ORDERABLES documented in this encounter Visit Diagnoses Not on filedocumented in this encounter Care Teams Typewriter Ribbon Winder Relationship Specialty Start Date End Date None, Bfp PCP - General 03/02/99 04/12/12 documented as of this encounter
--- OUTSIDE RECORDS SUMMARY | 2021-12-14 16:33 | XMS_ITS | Encounter Summary ---
:1980 Author Organization [place] Address [address] [place] [address] Care Team Providers Name Role Phone None, Bfp Primary Care Provider Unavailable Encounter Details Date Type Department Care Team Description 05/23/2009 Emergency room [facility] Solomon Ron, Hospital Results MD EMERGENCY PHYSIC JAZZ SWIFT [address] [facility] [address] [place] [address] (Wo rk) Social History Tobacco Use Types Packs/Day Years Used Date Smoking Tobacco: Never Assessed Sex Assigned at Date Recorded Female 01/14/2020 10:57 AM TRIMMER TAILER documented as of this encounter Progress Notes [...] She is a single mom, lives in [place], mom lives here in [place]. She is otherwise unemployed. PHYSICAL EXAMINATION: VITAL [...] MD MT: [id number] Name: STEPHANI MCCORMICK Account: [id number] : 1980 Visit Date: 05/23/2009 Document: [id number] documented in this encounter Plan of Treatment Upcoming Encounters Date Type Specialty Care Team Description 12/20/2021 Office Visit Wound Care Luis Camara, [place] [address] [place] [address] (Reinaldo molina) 01/21/2022 PRE VISIT Gastroenterology Landon Warren, *-*INCOMIN G RECORDS*-* MD Luis Fernando [address] [place] [address] (Reinaldo molina) 01/21/2022 Office Visit Gastroenterology Juanis Levi [address] [place] [address] Luis Fernando Miles MD [address] [place] [phone] documented as of this encounter Visit Diagnoses Not on filedocumented in this encounter Care Teams Director Skills Relationship Specialty Start Date End Date None, Bfp PCP - General 03/02/99 04/12/12 documented as of this encounter
--- OUTSIDE RECORDS SUMMARY | 2021-12-14 16:33 | XMS_ITS | Encounter Summary ---
:1980 Author Organization [place] Address [address] [facility] [place] [address] Care Team Providers Name Role Phone None, Bfp Primary Care Provider Unavailable Encounter Details Date Type Department Care Team Description 01/08/2005 Results Only [facility] Edgar Alfredo MD [facility] Radiology Results [address] [place] [address] (Wo rk) Social History Tobacco Use Types Packs/Day Years Used Date Smoking Tobacco: Never Assessed Sex Assigned at Date Recorded Female 01/14/2020 10:57 AM SERVICE STATION OPERATOR documented as of this encounter Plan of Treatment Upcoming Encounters Date Type Specialty Care Team Description 12/20/2021 Office Visit Wound Care Luis Camara, [place] [address] [place], [place] [phone] (Wo rk) 01/21/2022 PRE VISIT Gastroenterology Landon Warren, *-*WANDAIN G RECORDS*-* MD Luis Fernando [address] [facility] [place], [place] [address] (Wo rk) 01/21/2022 Office Visit Gastroenterology Juanis Levi [address] [place] [phone] Luis Fernando Miles MD [address] [place], [place] [address] [address] [place] [address] documented as of this encounter Procedures Procedure Name Priority Date/Time Associated Diagnosis Comme nts [facility] OB 2-3 Routine 01/08/2005 12:11 PM Results for this TRIMESTER SERVICE STATION OPERATOR procedure are i n MAT/, SINGLE the result s GESTATION section. documented in this encounter Results SONO COMPLETE (01/08/2005 12:11 PM SERVICE STATION OPERATOR) Anatomical Region Laterality Modality Other Specimen (Source) Anatomical Collection Method Collection Time Re ceived Time Location / / Volume Laterality 01/08/2005 12:11 PM SERVICE STATION OPERATOR Impressions 01/12/2005 7:22 AM SERVICE STATION OPERATOR ?? OBSTETRIC ULTRASOUND, SECOND/THIRD TRIME STER ?? CLINICAL HISTORY: ??The patient is withd rawing. ?? survey. ?? FINDINGS: ??Single living fetus seen in longitudinal lie and cephalic presentation. ??Cardiac activity 130 cici ts per minute and regular. ?? Placenta anterior without evidence of pr evia or abruption. ??Amniotic fluid volume normal with four-quadrant i ndex of 13. ??Umbilical artery pavogaww-mc-vgnybvbzt ratio of 4.2 to 1, which is [...] on filedocumented in this encounter Care Teams Bank Analyst Relationship Specialty Start Date End Date None, Bfp PCP - General 03/02/99 04/12/12 documented as of this encounter
--- OUTSIDE RECORDS SUMMARY | 2021-12-14 16:33 | XMS_ITS | Encounter Summary ---
:1980 Author Organization [place] Address [facility] [place] [address] Care Team Providers Name Role Phone None, Bfp Primary Care Provider Unavailable Encounter Details Date Type Department Care Team Description 01/11/2005 Discharge Summary (Project Economist) Unknown , Provider Social History Tobacco Use Types Packs/Day Years Used Date Smoking Tobacco: Never Assessed Sex Assigned at Date Recorded Female 01/14/2020 10:57 AM CNS documented as of this encounter Plan of Treatment Upcoming Encounters Date Type Specialty Care Team Description 12/20/2021 Office Visit Wound Care Luis Camara DPM [address] [place], [place] [id number] (Wo rk) 01/21/2022 PRE VISIT Gastroenterology Landon Warren, *-*WANDAIN G RECORDS*-* MD Luis Fernando [address] [place] [phone] (Wo rk) 01/21/2022 Office Visit Gastroenterology Juanis Levi [address] [place] [phone] Luis Fernando Miles MD [address] [place] [phone] documented as of this encounter Visit Diagnoses Not on filedocumented in this encounter Care Teams Senior Infrastructure Engineer Relationship Specialty Start Date End Date None, Bfp PCP - General 03/02/99 04/12/12 documented as of this encounter
--- OUTSIDE RECORDS SUMMARY | 2021-12-14 16:33 | XMS_ITS | Encounter Summary ---
:1980 Author Organization [place] Address [address] [place] [address] Care Team Providers Name Role Phone None, Bfp Primary Care Provider Unavailable Encounter Details Date Type Department Care Team Description 05/24/2009 Historic Results INTERFACED REPORT Solomon Whelan MD [facility] [address] [facility] [address] [place], [place] [phone] (Wo rk) Social History Tobacco Use Types Packs/Day Years Used Date Smoking Tobacco: Never Assessed Sex Assigned at Date Recorded Female 01/14/2020 10:57 AM AUTOMATIC PROFILE SANDER OPERATOR documented as of this encounter Plan of Treatment Upcoming Encounters Date Type Specialty Care Team Description 12/20/2021 Office Visit Wound Care Luis Camara, DPM [address] [place] [address] (Wo rk) 01/21/2022 PRE VISIT Gastroenterology Landon Warren, *-*WANDAIN G RECORDS*-* MD Luis Fernando [address] [facility] [address] [place], [place] [address] (Wo rk) 01/21/2022 Office Visit Gastroenterology Juanis Levi [address] [place] [phone] Luis Fernando Miles MD [address] [facility] [address] [place] [address] documented as of this encounter Procedures Procedure [...] filedocumented in this encounter Care Teams Application Administrator Relationship Specialty Start Date End Date None, Bfp PCP - General 03/02/99 04/12/12 documented as of this encounter
--- OUTSIDE RECORDS SUMMARY | 2021-12-14 16:33 | XMS_ITS | Encounter Summary ---
:1980 Author Organization [place] Address [address] [place] [address] Care Team Providers Name Role Phone None, Bfp Primary Care Provider Unavailable Encounter Details Date Type Department Care Team Description 01/07/2005 Results Only [facility] molly Hdez MD [facility] Radiology Results [facility] [address] [place], [place] [address] (Wo rk) Social History Tobacco Use Types Packs/Day Years Used Date Smoking Tobacco: Never Assessed Sex Assigned at Date Recorded Female 01/14/2020 10:57 AM MEDICAL ASSISTANT PRN documented as of this encounter Plan of Treatment Upcoming Encounters Date Type Specialty Care Team Description 12/20/2021 Office Visit Wound Care Luis Camara, [place] [address] [place], [place] [phone] (Wo rk) 01/21/2022 PRE VISIT Gastroenterology Landon Warren, *-*WANDAIN G RECORDS*-* MD Luis Fernando 6 [facility] [address] [place], [place] [address] (Wo rk) 01/21/2022 Office Visit Gastroenterology Juanis Levi [address] [place] [phone] Luis Fernando Miles MD [facility] [address] [place] [address] documented as of this encounter Procedures Procedure Name Priority Date/Time Associated Diagnosis Comme nts HC CT LOWER Routine 01/07/2005 9:00 PM Results f or this EXTREMITY W/O MEDICAL ASSISTANT PRN procedure are in CONTRAST the results section. documented in this encounter Results CT SCAN LEG (01/07/2005 9:00 PM MEDICAL ASSISTANT PRN) Anatomical Region Laterality Modality Other Specimen (Source) Anatomical Collection Method Collection Time Re ceived Time Location / / Volume Laterality 01/07/2005 9:00 PM MEDICAL ASSISTANT PRN Impressions 01/08/2005 1:40 PM MEDICAL ASSISTANT PRN ? CT STUDY OF RIGHT LOWER EXTREMITY [...] on filedocumented in this encounter Care Teams Certified Addiction Counselor Relationship Specialty Start Date End Date None, Bfp PCP - General 03/02/99 04/12/12 documented as of this encounter
--- OUTSIDE RECORDS SUMMARY | 2021-12-14 16:33 | XMS_ITS | Encounter Summary ---
:1980 Author Organization [place] Address [address] [facility] 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 documented as of this encounter Plan of Treatment Upcoming Encounters Date Type Specialty Care Team Description 12/20/2021 Office Visit Wound Care Luis Camara, [place] [address] [place], [place] [address] (Wo rk) 01/21/2022 PRE VISIT Gastroenterology Landon Warren, *-*WANDAIN G RECORDS*-* MD Luis Fernando [address] [facility] [address] [place], [place] [address] (Wo rk) 01/21/2022 Office Visit Gastroenterology Juanis Levi [address] [place] [phone] Luis Fernando Miles MD [facility] [address] [place] [address] documented as of this encounter Procedures Procedure Name Priority Date/Time Associated Diagnosis Comme nts HC X-RAY FOOT 2 Routine 01/06/2005 1:46 PM Result s for this VIEWS OSS ARCHITECT procedure are i n the results section. HC X-RAY ANKLE 2 Routine 01/06/2005 1:45 PM Resul ts for this VIEWS OSS ARCHITECT procedure are i n the results section. documented in this encounter Results X-RAY FOOT 2 VW (01/06/2005 1:46 PM OSS ARCHITECT) Anatomical Region Laterality Modality Other Specimen (Source) Anatomical Collection Method Collection Time Re ceived Time Location / / Volume Laterality 01/06/2005 1:46 PM OSS ARCHITECT Impressions 01/07/2005 4:29 PM OSS ARCHITECT 2 VIEW RIGHT FOOT AND 2 VIEW [...] X-RAY ANKLE 2 VW (01/06/2005 1:45 PM OSS ARCHITECT) Anatomical Region Laterality Modality Other Specimen (Source) Anatomical Collection Method Collection Time Re ceived Time Location / / Volume Laterality 01/06/2005 1:45 PM OSS ARCHITECT Impressions 01/07/2005 4:29 PM OSS ARCHITECT 2 VIEW RIGHT FOOT AND 2 VIEW [...] on filedocumented in this encounter Care Teams Job Compositor Relationship Specialty Start Date End Date None, Bfp PCP - General 03/02/99 04/12/12 documented as of this encounter
--- OUTSIDE RECORDS SUMMARY | 2021-12-14 16:33 | XMS_ITS | Encounter Summary ---
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 documented as of this encounter Plan of Treatment Upcoming Encounters Date Type Specialty Care Team Description 12/20/2021 Office Visit Wound Care Luis Camara DPM [address] [place], [place] [phone] (Wo rk) 01/21/2022 PRE VISIT Gastroenterology Landon Warren, *-*WANDAIN G RECORDS*-* MD Luis Fernando [address] [place] [phone] (Wo rk) 01/21/2022 Office Visit Gastroenterology Juanis Levi [address] [place] [phone] Luis Fernando Miles MD [address] [place] [phone] documented as of this encounter Visit Diagnoses Not on filedocumented in this encounter Care Teams Hotel Dining Room Cashier Relationship Specialty Start Date End Date None, Bfp PCP - General 03/02/99 04/12/12 documented as of this encounter
--- OUTSIDE RECORDS SUMMARY | 2021-12-14 16:33 | XMS_ITS | Encounter Summary ---
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 If this is inadequate, she will be referred to orthopedics and can follow upwith Dr. Tipton this coming week. Electronically signed on 05/29/2008 16:12 by AKIRA GONZALEZ MD [place]: [id number] Name: STEPHANI MCCORMICK MRN: [id number] Account: [id number] : 1980 Visit Date: 05/17/2008 Document: [id number] documented in this encounter Plan of Treatment Upcoming Encounters Date Type Specialty Care Team Description 12/20/2021 Office Visit Wound Care Luis Camara DPM [address] [place] [address] (Reinaldo molina) 01/21/2022 PRE VISIT Gastroenterology Landon Warren, *-*WANDAIN G RECORDS*-* MD Luis Fernando [address] [address] (Wo rk) 01/21/2022 Office Visit Gastroenterology Juanis Levi [address] [place] [address] Luis Fernando Miles MD [address] [facility] [address] [place] [address] documented as of this encounter Visit Diagnoses Not on filedocumented in this encounter Care Teams Diamond Powder Technician Relationship Specialty Start Date End Date None, Bfp PCP - General 03/02/99 04/12/12 documented as of this encounter
--- OUTSIDE RECORDS SUMMARY | 2021-12-14 16:34 | XMS_ITS | Clinical Summary ---
:1980 Author Organization [employer] [place] [address] Care Team Providers Name Role Phone Luis Fernando Magana MD Primary Care Provider [phone] Allergies No known active allergies Medications [...] ferent from the original. NEXT VISIT ALERTS: IGOVANNA faxed for records from Dr. Alfredo ( [...] Dr. Sayda HEREDIA signed for [facility]: Signed 10/25/14 REFERRING PHYSICIAN: Angelique Brewer [facility]' [facility] [phone] Breanna Coleman [facility] [phone] SPECIALISTS[facility] ([facility] DISTRIBUTION AGENT: Yesenia Zaman, [facility] CARE COORDINATION: Erika Galvan RN/Camryn Hernandez RN [phone] CONSULTS: Presented at Teresa/Gabriel Rounds on 11/03 NICU Consult/Tour: 11/10 at 12:30 [facility] [place]: 1975 Cardiac Surgery Consult: will not meet p renatal/Dummer PROCEDURES: CHECKLIST FOR SCHEDULING PRO CEDURES: Procedure: Induction Hospital: [facility] Unit: L&D Date & Time of procedure: 12/06/14 at 12 00 Savage Score if induction: 6 Pertinent information: Gestational age on procedure date: 39w0d MD doing procedure: Hospitalist Date scheduled: 11/30/2014 Scheduling MD & RN: Lona Hernandez NP and Kae Guadarrama RN Hospitalist Delivery-Brianna Rodriguez notif ied: [phone]) Yes H&P and Plan in chart: Not Applicable MPP notified via [employer] inbox? Not Applicable On [facility] calendar? Not Applicable Amnio needed: No Amnio scheduled: Not Applicable Does NICU need notification: Yes NICU notification done: Yes (NICU ) PPTL permit signed: Not Applicable Patient notified of procedure date: Yes, Discussed: 11/30/14 Written admission instructions given to patient: Yes Destiny Herron NICU [phone] Peds Surgery Durga/Angelika [phone] Dr.Nagib Lozano Neurology [facility] [phone]Aliabadi Lozano Urology [phone] Heart Surgery [place] [phone] MEDS: Subutex Effexor Levothyroxine 125 mcg Wellbutrin [...] Await spontaneous labor, per Dr. Rikki Hernandez, [facility] Insufficient care 04/30/2009 Hepatitis C [...] 9 ral ng na oz) Delivery Location: [facility] Comments: wt gain 25#. uncomplicat ed. dilated slowly. AROM. Uncomplicated delivery. 04/08/2005 Term 41w0d F Vag Living Complications: None Delivery Location: [place] 05/30/2006 Term 40w0d M Vag Living Delivery Location: [facility] 04/30/2009 Term 37w0d F Vag Epidural Living Delivery Location: [place] 10/01/2010 Term 40w0d M Vag Epidural N Demis e Delivery Location: [facility] 07/20/2012 Term 40w0d M Epidural, General Living Delivery Location: [place] 12/04/2014 Term 38w5d 2.49 kg (5 lb 7.8 oz) M L iving 1 3 Complications: Uterine rupture during la bor Delivery Location: [facility] Last Filed Vital Signs Vital Sign [...] Phone Addre ss Type Group [facility] [id number] 2021-Present [address] [place] [address] Advance Directives Latest Code Status on File Code Status Date Activated Date Inactivated Comments Full Code 12/04/2014 6:39 AM 12/07/2014 7:40 PM Full Code 12/03/2014 8:45 PM 12/04/2014 6:39 AM Full Code 12/03/2014 4:25 PM 12/03/2014 8:45 PM Full Code 12/03/2014 3:24 PM 12/03/2014 4:25 PM Full Code 04/30/2009 10:06 PM 05/02/2009 3:13 PM Care Teams Burner Technician Relationship Specialty Start Date End Date Luis Fernando Magana MD PCP - General Family Practice 06/24/13 [id number] [place] [address]
--- NOTE | 2021-12-14 17:52 | ED.GENADULT ---
HPI - General Adult General Chief complaint: Headache/Migraine Stated complaint: Headache, leg pain Time Seen by Provider: 12/14/21 15:33 Source: patient Mode of arrival: ambulatory Limitations: no limitations History of Present Illness HPI narrative: 41-year-old female coming into the ER today with multiple concerns: She has had upper respiratory symptoms with cough and congestion. Her congestion is not resolved but she has a lot of nasal discharge. She has a headache that comes and goes. Generally mild. Is nothing new that she has not had before. She also has areas of her skin the become very hot. She states that it is little areas about the size of a coin that feel hot all of a sudden and then they go back to normal. The skin color does not change in she has no rash. Lastly she has chronic right foot pain. She has had multiple feet and ankle surgeries on that right side. She states that the pain continues and she would like to have it evaluated she is concerned about infection. She denies any erythema or swelling of the leg. She does wear a cam walker regularly. She denies any systemic symptoms like fevers or chills. No nausea or vomiting. Her children also have upper respiratory symptoms. Related Data Home Medications Medication Instructions Recorded Confirmed buprenorphine HCl 8 mg sublingual 8 mg sublingual TID 09/12/21 12/14/21 tablet cholecalciferol (vitamin D3) 50 50 mcg PO QDAY 09/12/21 12/14/21 mcg (2,000 unit) tablet diclofenac sodium 1 % topical gel 2 g topical BID 09/12/21 12/14/21 (Arthritis Pain (diclofenac)) fexofenadine 180 mg tablet 180 mg PO Q24H PRN 09/12/21 12/14/21 folic acid 1 mg tablet 1 mg PO QDAY 09/12/21 12/14/21 hydroxyzine HCl 25 mg tablet 25 mg PO .HS 09/12/21 12/14/21 lactulose 20 gram oral packet 20 g PO BID 09/12/21 12/14/21 levothyroxine 125 mcg capsule 125 mcg PO QDAY 09/12/21 12/14/21 methocarbamol 750 mg tablet 750 mg PO TID 09/12/21 12/14/21 miconazole nitrate 2 % topical 1 applic topical BID 09/12/21 11/28/21 powder nicotine 14 mg/24 hr daily 1 patch transdermal Q24H 09/12/21 12/14/21 transdermal patch sennosides 8.6 mg-docusate sodium 2 tab-cap PO BID PRN 09/12/21 10/16/21 50 mg tablet (Senna with Docusate Sodium) thiamine HCl (vitamin B1) 100 mg 100 mg PO QDAY 09/12/21 11/28/21 tablet venlafaxine 75 mg capsule,extended 75 mg PO QAM 09/12/21 11/28/21 release 24 hr acetaminophen 500 mg tablet 1,000 mg PO Q8H PRN 11/28/21 12/14/21 clonidine HCl 0.1 mg tablet 0.1 mg PO BID PRN 11/28/21 12/14/21 divalproex 500 mg tablet,delayed 500 mg PO DAILY 11/28/21 12/14/21 release gabapentin 300 mg capsule 300 mg PO BID 11/28/21 12/14/21 lidocaine HCl 4 % topical liquid ea topical .QOD 11/28/21 11/28/21 roll-on (Aspercreme (lidocaine HCl)) melatonin 3 mg capsule 3 mg PO ONCE 11/28/21 11/28/21 multivitamin (Daily Multi-Vitamin 1 tab PO QAM 11/28/21 12/14/21 tablet) polyethylene glycol 3350 17 gram 17 g PO QDAY PRN 11/28/21 11/28/21 oral powder packet (Miralax) Previous Rx's Medication Instructions Recorded apixaban 5 mg tablet (Eliquis) 5 mg PO BID #60 tabs 10/06/21 clomipramine 25 mg capsule 25 mg PO ONCE 14 days #14 caps 11/01/21 mupirocin 2 % topical ointment 1 applic topical BID PRN scabs #22 11/01/21 grams ondansetron 4 mg disintegrating 4 mg PO BID PRN nausea and 11/01/21 tablet vomiting #20 tabs clindamycin phosphate 1 % lotion 1 applic topical BID #60 mL 11/28/21 tramadol 50 mg tablet 50 mg PO QDAY #15 tabs 11/28/21 Allergies Allergy/AdvReac Type Severity Reaction Status Date / Time No Known Allergies Allergy Verified 12/14/21 15:19 Review of Systems Status of ROS: Reports: 10 or more systems reviewed and unremarkable except as noted in History and below [facility] Medical History Acute deep vein thrombosis (DVT) of right lower extremity Anemia Cellulitis of leg, right GI bleed Surgical History History of delivery History of gynecologic surgery History of thoracic surgery Status post hysterectomy Family History Other Depression Thyroid disease Social History Narrative: alcohol abuse cigarette smoker Smoking Status: Current every day smoker What tobacco products do you use: cigarettes Do you use any of these nicotine containing products: Other Second hand tobacco smoke exposure: No How often do you have a drink containing alcohol: 2-3 times a week How many standard drinks containing alcohol do you have on a typical day: 1 or 2 How often do you have six or more drinks on one occasion: Never AUDIT-C Alcohol total score: 3 Non-prescribed substance use: denies use 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 Alert and oriented. Answers questions appropriately. Patient speaks in full sentences without needing to catch their breath. HEENT: Normocephalic atraumatic. Pupils are equally round reactive to light. Extraocular muscles are intact. Conjunctivae are moist without any icterus noted. Moist mucous membranes. Posterior pharynx is normal. Neck is soft without any lymphadenopathy or thyromegaly. No masses are appreciated. TMs are clear bilaterally. She is not congested and has good air movement through both nostrils. She has no tenderness across the face. She has very poor dentition with most of her teeth are broken or rotten. I do not see any swelling of the gingiva. No evidence of any abscess formation in the mouth. Cardiovascular: Heart is regular rate and rhythm S1 and S2 are present without any murmurs. Lungs: Clear to auscultation bilaterally no wheezes rhonchi or rales are appreciated. Patient takes deep breaths without any discomfort. Extremities: Bilateral lower extremities are without edema. The right ankle has evidence of prior surgeries with some scarring but no swelling, erythema. She has nonspecific diffuse tenderness to touch. Const: Vital Signs, click to edit/add: Vital Signs - 24 hr 12/14/21 15:09 Temperature 97.2 F L Pulse Rate [Right Pulse Oximeter] 67 Respiratory Rate 18 Blood Pressure [Ri ght Upper Arm] 119/78 Pulse Oximetry 99 Oxygen Delivery Me thod Room Air Course Course Hospital Course: Did go ahead and do an x-ray of the ankle to rule out osteomyelitis per patient request-this did not show any acute findings. Vital Signs Vital signs: Initial Vital Signs Temperature 97.2 F L 12/14/21 15:09 Temperature Source Temporal Artery Scan 12/14/21 15:09 Pulse Rate 67 12/14/21 15:09 Respiratory Rate 18 12/14/21 15:09 Blood Pressure 119/78 12/14/21 15:09 Blood Pressure Mean 91 12/14/21 15:09 Blood Pressure Position Sitting 12/14/21 15:09 Pulse Oximetry 99 12/14/21 15:09 Oxygen Delivery Method 12/14/21 15:09 Vital Signs Temperature 97.2 F L 12/14/21 15:09 Pulse Rate 67 12/14/21 15:09 Respiratory Rate 18 12/14/21 15:09 Blood Pressure 119/78 12/14/21 15:09 Pulse Oximetry 99 12/14/21 15:09 Oxygen Delivery Method 12/14/21 15:09 Temperature 97.2 F L 12/14/21 15:09 Pulse Rate 67 12/14/21 15:09 Respiratory Rate 18 12/14/21 15:09 Blood Pressure 119/78 12/14/21 15:09 Pulse Oximetry 99 12/14/21 15:09 Oxygen Delivery Method 12/14/21 15:09 Medical Decision Making [facility] Narrative Medical decision making narrative: 41-year-old female with congestion-likely a URI viral in nature we discussed symptomatic treatment. Number next chronic foot pain discussed following up with her surgeon or primary care provider for continued pain management. Imaging Data Foot x-ray: Attestation: I have reviewed the pertinent imaging results. Radiologist's impression: Pain in right foot. Technique: Right foot 3 views. Comparison: None. Findings: Bones: No acute fracture. Alignment is normal. Old hardware tracts within the calcaneus. Osteopenia. 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 Moderate midfoot and mild interphalangeal and 1st metatarsophalangeal joint degenerative changes. Soft tissues: Unremarkable. Impression: No acute fracture. 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 Mild to moderate degenerative changes of the remainder of the foot, as above. Discharge Plan Discharge Clinical Impression: Foot pain, right, URI (upper respiratory infection) Patient Disposition: Home, Self-Care Condition: Stable Additional Instructions: Follow-up with primary care provider as needed. Prescriptions: No Action acetaminophen 500 mg tablet 1,000 mg PO Q8H PRN clonidine HCl 0.1 mg tablet 0.1 mg PO BID PRN divalproex 500 mg tablet,delayed release (DR/EC) 500 mg PO DAILY Aspercreme (lidocaine HCl) 4 % liquid roll-on topical .QOD melatonin 3 mg capsule 3 mg PO ONCE multivitamin [Daily Multi-Vitamin] Tablet 1 tab PO QAM polyethylene glycol 3350 [Miralax] 17 gram powder in packet 17 g PO QDAY PRN clindamycin phosphate 1 % lotion 1 applic topical BID Qty: 60 1RF tramadol 50 mg tablet 50 mg PO QDAY Qty: 15 0RF buprenorphine HCl 8 mg tablet, sublingual 8 mg sublingual TID cholecalciferol (vitamin D3) 50 mcg (2,000 unit) tablet 50 mcg PO QDAY diclofenac sodium [Arthritis Pain (diclofenac)] 1 % gel 2 g topical BID Rx Instructions: apply to single elbow, wrist or hand; for hand includes palm/fingers/back of hand fexofenadine 180 mg tablet 180 mg PO Q24H PRN folic acid 1 mg tablet 1 mg PO QDAY hydroxyzine HCl 25 mg tablet 25 mg PO .HS lactulose 20 gram packet 20 g PO BID levothyroxine 125 mcg capsule 125 mcg PO QDAY methocarbamol 750 mg tablet 750 mg PO TID miconazole nitrate 2 % powder 1 applic topical BID nicotine 14 mg/24 hr patch 24 hour 1 patch transdermal Q24H sennosides-docusate sodium [Senna with Docusate Sodium] 8.6-50 mg tablet 2 tab-cap PO BID PRN thiamine HCl (vitamin B1) 100 mg tablet 100 mg PO QDAY venlafaxine 75 mg capsule,extended release 24hr 75 mg PO QAM gabapentin 300 mg capsule 300 mg PO BID Hold Instructions: makes ears ring clomipramine 25 mg capsule 25 mg PO ONCE 14 Days Qty: 14 8RF mupirocin 2 % ointment 1 applic topical BID PRN (Reason: scabs) Qty: 22 1RF ondansetron 4 mg tablet,disintegrating 4 mg PO BID PRN (Reason: nausea and vomiting) Qty: 20 0RF Eliquis 5 mg tablet 5 mg PO BID Qty: 60 2RF Hold Instructions: ulcer developed Rx Instructions: Take 10mg twice daily for 7 days, then go to 5mg twice daily after that Follow Up/Referrals: Yenifer Pickens PA-C [Primary Care Provider] - Stand Alone [facility] Info Inst[facility]
== END 2021-12-14 17:58 | disposition home or self-care (01) ==
PROVIDERS: Emergency Provider Family Medicine; PCP Physician Assistant Medical
DX: M79.671 Pain in right foot (principal); J06.9 Acute upper respiratory infection, unspecified
CPT/HCPCS: 73630; 99283; 99284

== ENCOUNTER 2022-11-30 19:36 | Emergency (ER) | payer MEDICAID, SELFPAY ==
[2022-11-30 20:14] VITALS: BP 153/89; PULSE 79; RESP 18; TEMP 36.4; O2SAT 100; BMI 35.5
--- NOTE | 2022-11-30 20:47 | ED.GENADULT ---
HPI - General Adult General Chief complaint: Extremity Pain/Injury, Lower Stated complaint: Ankle pain Time Seen by Provider: 11/30/22 20:38 Source: patient Mode of arrival: ambulatory Limitations: no limitations History of Present Illness HPI narrative: 42-year-old female presenting today requesting med refills. Patient states that she takes daily prednisone for chronic leg pain. She is that she when out of her prednisone yesterday. She had has an appointment on Friday for a refill she is requesting 3 days of prednisone today. She has no other concerns. Related Data Home Medications Medication Instructions Recorded Confirmed buprenorphine HCl 8 mg sublingual 8 mg sublingual TID 09/12/21 05/17/22 tablet cholecalciferol (vitamin D3) 50 50 mcg PO QDAY 09/12/21 05/17/22 mcg (2,000 unit) tablet diclofenac sodium 1 % topical gel 2 g topical BID 09/12/21 05/17/22 (Arthritis Pain (diclofenac)) fexofenadine 180 mg tablet 180 mg PO Q24H PRN 09/12/21 05/17/22 folic acid 1 mg tablet 1 mg PO QDAY 09/12/21 05/17/22 hydroxyzine HCl 25 mg tablet 25 mg PO .HS 09/12/21 05/17/22 lactulose 20 gram oral packet 20 g PO BID 09/12/21 05/17/22 nicotine 14 mg/24 hr daily 1 patch transdermal Q24H 09/12/21 05/17/22 transdermal patch sennosides 8.6 mg-docusate sodium 2 tab-cap PO BID PRN 09/12/21 05/17/22 50 mg tablet (Senna with Docusate Sodium) venlafaxine 75 mg capsule,extended 75 mg PO QAM 09/12/21 05/17/22 release 24 hr clonidine HCl 0.1 mg tablet 0.1 mg PO BID PRN 11/28/21 05/17/22 divalproex 500 mg tablet,delayed 500 mg PO DAILY 11/28/21 05/17/22 release polyethylene glycol 3350 17 gram 17 g PO QDAY PRN 11/28/21 05/17/22 oral powder packet (Miralax) Previous Rx's Medication Instructions Recorded mupirocin 2 % topical ointment 1 applic topical BID PRN scabs #22 11/01/21 grams levothyroxine 125 mcg tablet 125 mcg PO QDAY #90 tabs 12/19/21 methocarbamol 750 mg tablet 750 mg PO TID #90 tabs 12/19/21 multivitamin (Daily Multi-Vitamin 1 tab PO QAM #100 tabs 12/19/21 tablet) pantoprazole 20 mg tablet,delayed 20 mg PO QDAY #90 tabs 12/19/21 release thiamine HCl (vitamin B1) 100 mg 100 mg PO QDAY #90 tabs 12/19/21 tablet ondansetron 4 mg disintegrating 4 mg PO BID PRN nausea and 05/17/22 tablet vomiting #20 tabs acetaminophen 500 mg tablet 1,000 mg (2 x 500 mg) PO Q8H PRN 06/25/22 for pain #100 tabs clindamycin phosphate 1 % lotion 1 applic topical BID #60 mL 06/25/22 venlafaxine 150 mg 150 mg PO DAILY #30 caps 08/14/22 capsule,extended release 24 hr prednisone 10 mg tablet 10 mg PO QID #12 tabs 11/30/22 Allergies Allergy/AdvReac Type Severity Reaction Status Date / Time No Known Allergies Allergy Verified 11/30/22 20:20 Review of Systems Status of ROS: Reports: 6 or more systems reviewed and unremarkable except as noted in History and below [facility] Medical History Anemia ?D64.9 - Anemia, unspecified (ICD-10) GI bleed ?K92.2 - Gastrointestinal hemorrhage, unspecified (ICD-10) Cellulitis of leg, right ?L03.115 - Cellulitis of right lower limb (ICD-10) Acute deep vein thrombosis (DVT) of right lower extremity ?I82.401 - Acute embolism and thrombosis of unspecified deep veins of right lower extremity (ICD-10) Surgical History Status post hysterectomy ?Z90.710 - Acquired absence of both cervix and uterus (ICD-10) History of thoracic surgery ?Z98.890 - Other specified postprocedural states (ICD-10) History of gynecologic surgery ?Z98.890 - Other specified postprocedural states (ICD-10) History of delivery ?Z98.891 - History of uterine scar from previous surgery (ICD-10) Family History Other Depression Thyroid disease Social History Narrative: alcohol abuse cigarette smoker Smoking Status: Current every day smoker What tobacco products do you use: cigarettes Do you use any of these nicotine containing products: Other Second hand tobacco smoke exposure: No How often do you have a drink containing alcohol: 2-3 times a week How many standard drinks containing alcohol do you have on a typical day: 1 or 2 How often do you have six or more drinks on one occasion: Never AUDIT-C Alcohol total score: 3 Non-prescribed substance use: denies use 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 Looks much older than stated age. Alert and oriented. Answers questions appropriately. Mood and affect are appropriate. Thoughts are goal oriented and rational. No tangential or magical thinking noted. Patient speaks in full sentences without needing to catch her breath. HEENT: Normocephalic atraumatic. Pupils are equally round reactive to light. Extraocular muscles are intact. Conjunctivae are moist without any icterus noted. Moist mucous membranes. Const: Vital Signs, click to edit/add: Vital Signs - 24 hr 11/30/22 20:14 Temperature 97.6 F Pulse Rate [Pulse Oximeter] 79 Respiratory Rate 18 Blood Pressure [Ri ght Upper Arm] 153/89 H Pulse Oximetry 100 Oxygen Delivery Me thod Room Air Course Vital Signs Vital signs: Initial Vital Signs Temperature 97.6 F 11/30/22 20:14 Temperature Source Temporal Artery Scan 11/30/22 20:14 Pulse Rate 79 11/30/22 20:14 Respiratory Rate 18 11/30/22 20:14 Blood Pressure 153/89 H 11/30/22 20:14 Blood Pressure Mean 110 H 11/30/22 20:14 Blood Pressure Position Sitting 11/30/22 20:14 Pulse Oximetry 100 11/30/22 20:14 Oxygen Delivery Method Room Air 11/30/22 20:14 Vital Signs Temperature 97.6 F 11/30/22 20:14 Pulse Rate 79 11/30/22 20:14 Respiratory Rate 18 11/30/22 20:14 Blood Pressure 153/89 H 11/30/22 20:14 Pulse Oximetry 100 11/30/22 20:14 Oxygen Delivery Method Room Air 11/30/22 20:14 Temperature 97.6 F 11/30/22 20:14 Pulse Rate 79 11/30/22 20:14 Respiratory Rate 18 11/30/22 20:14 Blood Pressure 153/89 H 11/30/22 20:14 Pulse Oximetry 100 11/30/22 20:14 Oxygen Delivery Method Room Air 11/30/22 20:14 Medical Decision Making MDM Narrative Medical decision making narrative: 42-year-old female requesting a refill of her prednisone. Did go ahead and do that today. Discharge Plan Discharge Clinical Impression: Encounter for medication refill Patient Disposition: Home, Self-Care Condition: Stable Additional Instructions: Medications have been filled for 3 days. I recommended you call your primary care provider on Friday morning to get another med refill at that time. Prescriptions: New prednisone 10 mg tablet 10 mg PO QID Qty: 12 0RF No Action clonidine HCl 0.1 mg tablet 0.1 mg PO BID PRN divalproex 500 mg tablet,delayed release (DR/EC) 500 mg PO DAILY polyethylene glycol 3350 [Miralax] 17 gram powder in packet 17 g PO QDAY PRN ondansetron 4 mg tablet,disintegrating 4 mg PO BID PRN (Reason: nausea and vomiting) Qty: 20 0RF buprenorphine HCl 8 mg tablet, sublingual 8 mg sublingual TID cholecalciferol (vitamin D3) 50 mcg (2,000 unit) tablet 50 mcg PO QDAY diclofenac sodium [Arthritis Pain (diclofenac)] 1 % gel 2 g topical BID Rx Instructions: apply to single elbow, wrist or hand; for hand includes palm/fingers/back of hand fexofenadine 180 mg tablet 180 mg PO Q24H PRN folic acid 1 mg tablet 1 mg PO QDAY hydroxyzine HCl 25 mg tablet 25 mg PO .HS lactulose 20 gram packet 20 g PO BID nicotine 14 mg/24 hr patch 24 hour 1 patch transdermal Q24H sennosides-docusate sodium [Senna with Docusate Sodium] 8.6-50 mg tablet 2 tab-cap PO BID PRN venlafaxine 75 mg capsule,extended release 24hr 75 mg PO QAM mupirocin 2 % ointment 1 applic topical BID PRN (Reason: scabs) Qty: 22 1RF methocarbamol 750 mg tablet 750 mg PO TID Qty: 90 3RF pantoprazole 20 mg tablet,delayed release (DR/EC) 20 mg PO QDAY Qty: 90 3RF thiamine HCl (vitamin B1) 100 mg tablet 100 mg PO QDAY Qty: 90 3RF multivitamin [Daily Multi-Vitamin] Tablet 1 tab PO QAM Qty: 100 3RF levothyroxine 125 mcg tablet 125 mcg PO QDAY Qty: 90 3RF acetaminophen 500 mg tablet 1,000 mg PO Q8H PRN (Reason: for pain) Qty: 100 1RF clindamycin phosphate 1 % lotion 1 applic topical BID Qty: 60 1RF venlafaxine 150 mg capsule,extended release 24hr 150 mg PO DAILY Qty: 30 0RF Follow Up/Referrals: Provider,Not a Local [Primary Care Provider] - Stand Alone Forms: [facility] Info Instructions
--- OUTSIDE RECORDS SUMMARY | 2022-11-30 21:22 | XMS_ITS | Continuity of Care Document ---
Author Name Unknown Organization [facility] Address [address] [address] [place] [address] Phone Care Team Providers Care Fastener Technologist Name Role Phone Beatris Mijares Unavailable Unavailable Procedures Procedure Date Subsqt Hosp-da E&m Minr Compl 3 Init Inpt Cons New/est Mod-hi 3 Subsqt Hosp-da E&m Minr Compl 3 Advance Directives Directive Yes / No Effective Date File Name No Information Encounters Encounter Description Practice Location Reason(s) For Visit Diagnoses Date Provider Providers Copied on Encounter [facility], [address] [address], [place], [place], [id number], [place] tel:[phone] [facility] No Information 3 Haven Spear. [address] [facility], [address], [id number], [place]. tel:[phone] [facility], [address] [address], [place], [place], [id number], [place] tel:[phone] [facility] Acute alcoholic hepatitis 3 Haven Spear. [address] [facility], [address], [id number], [place]. tel:[phone] Subsqt Hosp-da E&m Minr Compl [facility], [address] [address], [place], [id number], [place] tel:[phone] [facility] No Information 3 Akbar Gilmore. [address] [facility], [address], [id number], [place]. tel:[phone] Referring Provider: Juanis Levi MD, [address], [place], [address]. tel:[phone] Init Inpt Cons New/est Mod-hi [facility], [address] [address], [place], [place], [id number], [place] tel:[phone] [facility] No Information No Information Referring Provider: Juan Lawrence MD, [address], [place], [address]. tel:[phone] Family History Family Member Type Diagnosis Age At Onset No Information Immunizations Vaccine Date Status Comments Afluria Qd administered Note: [facility] bi-directional interface ; Source: Other Registry SARS-COV-2 (COVID-19) vaccin e, mRNA, spike protein, LNP, preservative free, 100 mcg/0.5mL dose or 50 mcg/0.25mL dose administered Note: [facility] bi -directional interface ; Source: Other Registry measles, mumps and rubella v irus vaccine administered Note: [facility] bi-direct ional interface ; Source: Other Registry tetanus toxoid, reduced diphtheria toxoid, and acellular pertussis vaccine, adsorbed administered Note: [facility] b i-directional interface ; Source: Other Registry Afluria Qd administered Note: [facility] bi-directional interface ; Source: Other Registry Payers Payer name Insurance type Covered democrat ID Authoriza tion(s) No Information Social History Type Description Quantity Date Captured Comments Sex Female Smoking Status No Information Chief Complaint And Reason For Visit No Information Reason For Referral Reason For Referral No Information History Of Present Illness Encounter Date Complaint History Of Prese nt Illness No Information Functional Status Date Functional Assessmen t No Information Instructions Date Instruction Additional Infor mation No Information Assessments Type Assessment Date No Information Patient Care Teams Name Effective Dates (start - stop) Status Members No Information
== END 2022-11-30 21:26 | disposition home or self-care (01) ==
LOC: ED 21:20
PROVIDERS: Emergency Provider Family Medicine
DX: Z76.0 Encounter for issue of repeat prescription (principal)
CPT/HCPCS: 99281; 99282; 99283